=== PATIENT | female | born 1965 | race Caucasian/White ===

== ENCOUNTER 2019-06-18 16:19 | Emergency (ER) | payer SELFPAY | END 2019-06-18 18:19 | disposition home or self-care (01) | PROVIDERS: Emergency Provider Family Medicine; Family Provider Registered Nurse; Visit Provider Family Medicine | DX: N30.21 Other chronic cystitis with hematuria (principal); Z88.5 Allergy status to narcotic agent; Z88.7 Allergy status to serum and vaccine; Z88.2 Allergy status to sulfonamides; Z87.891 Personal history of nicotine dependence; E11.9 Type 2 diabetes mellitus without complications; I10 Essential (primary) hypertension; Z87.440 Personal history of urinary (tract) infections; I73.9 Peripheral vascular disease, unspecified; J44.9 Chronic obstructive pulmonary disease, unspecified | CPT/HCPCS: 36415; 80053; 81001; 85025; 87086; 99283 ==

== ENCOUNTER → 2019-06-21 08:09 | Outpatient (BNVA) | payer MEDICARE, MEDICAID, SELFPAY | PROVIDERS: Family Provider Registered Nurse; PCP Registered Nurse; Visit Provider Registered Nurse | DX: F41.9 Anxiety disorder, unspecified (principal); N30.21 Other chronic cystitis with hematuria; Z09 Encounter for follow-up examination after completed treatment for conditions other than malignant neoplasm | CPT/HCPCS: 81003 ==

== ENCOUNTER 2019-06-27 18:07 | Emergency (ER) | payer MEDICARE, MEDICAID, SELFPAY ==
[2019-06-27 17:02] VITALS: BP 137/88; PULSE 88; RESP 16; TEMP 36.9; O2SAT 97; BMI 29.4
--- NOTE | 2019-06-27 17:16 | ED_ITS ---
HPI - General Adult General: Chief complaint: Abdominal Pain Stated complaint: Abd pain, N/V blood stools History of Present Illness: HPI narrative: Patient arrived by EMS for complaints abdominal pain times months days years. Patient says is been worse since Monday. Was seen at [facility]. Was seen at [facility] clinic today. Patient had no complaints of pain this morning at her clinic visit and her labs were okay from [facility]. Patient is known to me for multiple visits over the last few years for plaints of chronic abdominal pain. Patient has appointment Monday with Dr. Heaven REAGAN complaint: abdominal pain Onset (ago): year(s) Associated symptoms: Reports nausea; Deny chest pain, dyspnea, headache(s), rash or vomiting Review of Systems Const: Denies: fever, chills or body aches Eyes: Denies: change in vision or blurry vision ENMT: Denies: throat pain or nasal congestion Card: Denies: chest pain or shortness of breath on exertion Resp: Denies: shortness of breath, productive cough or non-productive cough GI: Reports: abdominal pain, nausea, cramping and blood in stool; Denies: vomiting, vomiting blood, coffee grounds in vomit, painful bowel movements, black tarry stool or mucus in stool Musc: Denies: extremity pain Skin/Breast: Denies: rash Neuro: Denies: headache Psych: Denies: anxiety or depression Wilbur/Lymph: Denies: easy bruising PFSH ED PFSH: Statuses (acute, chronic, etc) shown below reflect problem list status as previously entered and may not be historically accurate Social History Smoking and tobacco status: current every day smoker cigarettes Household members: spouse Housing: House Marital status: Number of children: 3 Current gender identity: Female Physical Exam Const: COMMON NORMALS: no apparent distress, average body habitus and oriented x3 HENMT: COMMON NORMALS: normocephalic HEAD & SCALP: normal to inspection and normocephalic FACE & SINUS: normal facial exam Eye: COMMON NORMALS: conjunctivae normal GENERAL EYE: normal appearance of both eyes CONJUNCTIVA: Yes conjunctivae normal Neck/C-Spine: COMMON NORMALS: no JVD Chest: COMMONS NORMALS: inspection of chest normal Resp: COMMON NORMALS: normal respiratory effort and clear to auscultation bilaterally AUSCULTATION: clear to auscultation bilaterally Cardio: COMMON NORMALS: no JVD, regular rate and regular rhythm RATE: regular rate RHYTHM: regular rhythm GI: COMMON NORMALS: normal to inspection, nondistended, normoactive bowel sounds Extremity: COMMON NORMALS: normal to inspection and full ROM Neuro: COMMON NORMALS: oriented x3 Course Vital Signs: Vital signs: Vital Signs Temperature 98.5 F 06/27/19 17:02 Pulse Rate 88 06/27/19 17:02 Respiratory Rate 16 06/27/19 17:02 Blood Pressure 137/88 06/27/19 17:02 Pulse Oximetry 97 06/27/19 17:02 Discharge Plan Discharge Prescriptions: No Action trazodone 100 mg tablet 200 mg PO ONCE RF: 0 aripiprazole [Abilify] 5 mg tablet 5 mg PO ONCE RF: 0 venlafaxine 50 mg tablet 25 mg PO BID RF: 0 hydroxyzine pamoate [Vistaril] 50 mg capsule 50 mg PO QID PRN (Reason: anxiety) Qty: 120 RF: 3 nystatin 100,000 unit/gram ointment 1 applic TOPICAL BID RF: 0 mupirocin 2 % ointment 1 applic TOPICAL BID RF: 0 fluconazole [Diflucan] 150 mg tablet 150 mg PO ONCE RF: 0 promethazine 25 mg suppository 25 mg IN Q12H PRN (Reason: nausea and vomiting) Qty: 1 RF: 0 sucralfate [Carafate] 1 gram tablet 1 gm PO Q6H RF: 0 albuterol sulfate 2.5 mg /3 mL (0.083 %) solution for nebulization 2.5 mg INHALATION Q8H PRNRF: 0 buspirone 10 mg tablet 10 mg PO TID RF: 0 pantoprazole [Protonix] 40 mg tablet,delayed release (DR/EC) 40 mg PO ONCE RF: 0 Trelegy Ellipta 100-62.5-25 mcg blister with device 1 inh INHALATION Q24H RF: 0 polyethylene glycol 3350 [Miralax] 17 gram/dose powder 17 gm PO ONCE PRN (Reason: constipation) RF: 0 benzonatate 200 mg capsule 200 mg PO TID RF: 0 bisacodyl [Women's Gentle Laxative(bisac)] 5 mg tablet,delayed release (DR/EC) 5 mg PO ONCE RF: 0 Ingrezza 40 mg capsule 40 mg PO ONCE RF: 0 (DME) oxygen-air delivery systems Device See Rx Instructions .ROUTE .MEDSUPPLY Qty: 1 RF: 0 Coding Level of Care Code ED Health Promotion Officer for Basiag Fwd Exam Problem Focused
[2019-06-27] MEDS: promethazine 25 mg/mL SDV 1 mL IM (17:54)
[2019-06-27 18:03] LABS: Basophils # 0.1 10^3/uL (0.0-0.1); Basophils % 0.8 %; Eosinophils # 0.2 10^3/uL (0.0-0.8); Eosinophils % 1.5 %; Hematocrit 40.3 % (37.0-47.0); Hemoglobin 13.3 g/dL (11.5-15.3); Lymphocytes # 2.3 10^3/uL (0.8-4.8); Lymphocytes % 15.9 %; Mean Corpuscular Volume 93.9 fL (81-99); Monocytes # 0.8 10^3/uL (0.2-0.9); Monocytes % 5.8 %; Neutrophils % 75.5 %; Nucleated Red Blood Cells % 0 %; Platelet Count 263 10^3/cmm (130-400); Red Blood Count 4.29 10^6/uL (4.1-5.3); Red Cell Distribution Width 14.6 % (12.1-15.1); White Blood Count 14.6 10^3/uL (4.0-10.0)
[2019-06-27 18:19] LABS: Alanine Aminotransferase 6 U/L (0-33); Albumin Level 3.9 g/dL (3.5-5.2); Alkaline Phosphatase 127 IU/L (35-105); Anion Gap 14.7 (5-19); Aspartate Amino Transferase 8 U/L (0-32); Blood Urea Nitrogen 10 mg/dL (6-20); Calcium 9.3 mg/Dl (8.6-10.0); Carbon Dioxide 22 mmol/L (22-29); Chloride 107 mmol/L (98-107); Globulin 2.5 g/dL (1.3-4.6); Glomerular Filtration Rate 52.4 mL/min (90-130); Glucose 124 mg/dL (74-109); Lipase 34 U/L (13-60); Potassium 3.7 mmol/L (3.5-5.1); Sodium 140 mmol/L (136-145); Total Bilirubin 0.2 mg/dL (0.15-1.2); Total Protein 6.4 g/dL (6.6-8.7)
[2019-06-27 19:48] VITALS: BP 124/62; PULSE 82; RESP 18; O2SAT 98
== END 2019-06-27 19:49 | disposition home or self-care (01) ==
PROVIDERS: Nurse Practitioner Family; Emergency Provider Emergency Medicine; Family Provider Registered Nurse; PCP Registered Nurse
DX: R10.9 Unspecified abdominal pain (principal); F17.210 Nicotine dependence, cigarettes, uncomplicated
CPT/HCPCS: 36415; 80053; 83690; 85025; 96372; 99281; J2550

== ENCOUNTER 2019-07-09 09:24 | Emergency (ER) | payer MEDICARE, MEDICAID, SELFPAY ==
[2019-07-09 09:35] VITALS: BP 114/79; PULSE 116; RESP 18; TEMP 37.1; O2SAT 96; BMI 29.9
--- NOTE | 2019-07-09 10:21 | PC.NURSE ---
PHYSICAL ASSESSMENT GENERAL / NEURO / PSYCH: Alert. Oriented X 4. HEENT: Mucous membranes are pink. RESPIRATORY: Respiration not labored. Breath sounds within normal limits. GI / : Abdominal tenderness along the lower abdomen above the bladder. ( Bowel sounds within normal limits. Nausea with vomiting daily. Denies urinary problems. SKIN: Skin is warm and dry
--- NOTE | 2019-07-09 10:23 | PC.NURSE ---
Patient ambulated to restroom for urine collection
[2019-07-09 10:49] LABS: Bilirubin Urine Neg (NEGATIVE); Blood Urine 3+ (Negative); Glucose Urine UA Norm (Normal); Ketones Urine Negative (Negative); Nitrate Urine Negative (Negative); Protein Urine Neg (Negative); Urine Appearance Cloudy (CLEAR); Urine Color Yellow (Yellow); pH Urine 5 (5-7)
[2019-07-09 10:49] LABS: Basophils # 0.1 10^3/uL (0.0-0.1); Basophils % 0.4 %; Eosinophils # 0.2 10^3/uL (0.0-0.8); Eosinophils % 0.8 %; Hematocrit 42.2 % (37.0-47.0); Lymphocytes # 1.6 10^3/uL (0.8-4.8); Lymphocytes % 7.9 %; Mean Corpuscular HGB Conc 33.2 g/dL (30.0-36.0); Mean Corpuscular Hemoglobin 31.3 pg (28.0-34.0); Mean Corpuscular Volume 94.2 fL (81-99); Monocytes # 1.3 10^3/uL (0.2-0.9); Monocytes % 6.8 %; Neutrophils # 16.3 10^3/uL (1.8-7.7); Neutrophils % 83.6 %; Nucleated Red Blood Cells % 0 %; Platelet Count 249 10^3/cmm (130-400); Red Blood Count 4.48 10^6/uL (4.1-5.3); Red Cell Distribution Width 14.6 % (12.1-15.1); White Blood Count 19.5 10^3/uL (4.0-10.0)
[2019-07-09 10:50] LABS: Add Urine Microscopic? YES; Leukocyte Esterase Urine Negative (Negative); Urobilinogen Urine 1 mg/dL (Negative)
[2019-07-09] MEDS: sodium chloride 0.9% 1,000 ML 999 ML IV (10:51)
[2019-07-09 10:52] LABS: RBC Urine TOO NUMEROUS TO CNT /hpf (0-2); Squamous Epithelial Cell Urine 0-4 (0-5)
[2019-07-09 10:53] LABS: Add Urine Culture? Yes; Bacteria Urine 2+
[2019-07-09 10:56] VITALS: BP 113/63; PULSE 88; RESP 16; O2SAT 96
[2019-07-09 11:02] LABS: Alanine Aminotransferase 6 U/L (0-33); Albumin Level 3.8 g/dL (3.5-5.2); Alkaline Phosphatase 127 IU/L (35-105); Aspartate Amino Transferase 15 U/L (0-32); Blood Urea Nitrogen 14 mg/dL (6-20); Calcium 9.2 mg/Dl (8.6-10.0); Carbon Dioxide 20 mmol/L (22-29); Chloride 102 mmol/L (98-107); Globulin 3.1 g/dL (1.3-4.6); Glucose 134 mg/dL (74-109); Sodium 134 mmol/L (136-145); Total Bilirubin 0.2 mg/dL (0.15-1.2); Total Protein 6.9 g/dL (6.6-8.7)
--- NOTE | 2019-07-09 11:48 | W.ED.ABDPA2 ---
HPI - Abdominal Pain General: Chief Complaint: Abdominal Pain Stated Complaint: MULITPLE COMPLAINTS Time Seen by Provider: 07/09/19 10:07 Source: patient Mode of arrival: ambulatory Limitations: no limitations History of Present Illness: HPI narrative: Patient is a 53-year-old female who presents to ED today with complaints of hematemesis that she states is only been going on a week but after reviewing patient's history this is fairly chronic for her; patient reports she recently saw Dr. Medley for evaluation; she states she recontacted their office earlier this morning and spoke to a nurse who recommended she come to the emergency department; patient reports she has not had an EGD in years but according to her history Dr. Medley scoped her 5 months ago-findings of gastritis were present; patient also reports some lower abdominal pain-again this is fairly chronic for patient; she has been seen at our facility several times for similar symptoms; she reports she was at [facility] on Monday (we are contacting [facility] to fax medical records but they alerted me that patient has been at their facility 6 times this month already and 12 times last month) MD elicited complaint: abdominal pain Pertinent past history: gastritis Pain Consistency: constant Location: Other (lower abdomen ) Radiation: none Migration to: no migration Relieving factors: eating Associated Symptoms: Reports hematemesis, nausea and vomiting; Denies bloating, chills, coffee ground emesis, constipation, diarrhea, dysuria, excessive flatus, fever(s), fecal incontinence and syncope Review of Systems Const: Denies: fever or chills Card: Denies: chest pain, palpitations, irregular heart rhythm, lightheadedness, syncope or pre-syncope Resp: Denies: shortness of breath, productive cough or wheezing GI: Reports: abdominal pain, nausea, vomiting and vomiting blood; Denies: coffee grounds in vomit, difficulty swallowing, diarrhea, constipation, bloating, excessive passing of gas, fecal incontinence or painful bowel movements : Denies: flank pain, difficulty urinating, painful urination, urinary frequency, urinary urgency, urinary hesitancy or urinary incontinence Skin/Breast: Denies: rash Neuro: Denies: headache PFSH ED PFSH: Statuses (acute, chronic, etc) shown below reflect problem list status as previously entered and may not be historically accurate Medical History (Updated 01/21/20 @ 12:53 by ALBERT Russo) Chronic anxiety (Acute) Chronic cystitis with hematuria (Acute) Vomiting blood (Acute) Surgical History H/O: hysterectomy (Acute) History of appendectomy (Acute) History of breast biopsy (Acute) History of ureter stent (Acute) Hx of cholecystectomy (Acute) Social History Smoking and tobacco status: current every day smoker cigarettes Household members: spouse Housing: House Marital status: Number of children: 3 Current gender identity: Female Physical Exam Const: COMMON NORMALS: no apparent distress, oriented x3, alert and well nourished Resp: COMMON NORMALS: normal respiratory effort and clear to auscultation bilaterally AUSCULTATION: clear to auscultation bilaterally Cardio: COMMON NORMALS: regular rate and regular rhythm RATE: regular rate RHYTHM: regular rhythm GI: COMMON NORMALS: normal to inspection, nondistended, normoactive bowel sounds, soft to palpation, no hepatosplenomegaly and no masses PALPATION: Yes soft, Yes tender (suprapubic) and Yes no hepatosplenomegaly : COMMON NORMALS: Yes no CVA tenderness BLADDER/KIDNEY EXAM: Yes no CVA tenderness Back/Pelvis: COMMON NORMALS: no CVA tenderness and thoracic and lumbar spine normal to inspection Neuro: COMMON NORMALS: oriented x3 SENSORIUM/ORIENTATION: Yes alert Skin: COMMON NORMALS: no rashes or lesions noted GENERAL SKIN EXAM: no rashes or lesions noted Course Vital Signs: Vital signs: Vital Signs Temperature 98.8 F 07/09/19 09:35 Pulse Rate 70 07/09/19 12:57 Respiratory Rate 14 07/09/19 12:57 Blood Pressure 98/68 07/09/19 12:57 Pulse Oximetry 97 07/09/19 12:57 MDM - Abdominal Pain MDM Narrative: Medical decision making narrative: (I reviewed all 6 of pts last visits to [facility]) Patient's labs here revealing leukocytosis without any evidence for infection based on her history and remainder of labs/UA; looking at previous labs patient often has findings of leukocytosis; on her UA hematuria was present but again after reviewing patient's history this is chronic for her; she apparently has been referred to Dr. Fontanez but but states she has never called and made an appointment; there is no evidence for infection on her UA; history suggests previous diagnoses of kidney stones however looking through patient's imaging from 05/2017 until present, I cannot find any imaging that has ever diagnosed a stone; she has been scanned several times; at this time I do not feel any imaging is necessary; hemoglobin today is higher than what is was a few days ago at [facility]; recommend she follow-up with her primary care provider and continue to follow-up with Dr. Medley as directed; she is already taking Carafate and Protonix daily Lab Data: Labs: Lab Results 07/09/19 07/09/19 07/09/19 Range/Units 10:26 10:43 10:43 WBC 19.5 H (4.0-10.0) 10^3/ uL RBC 4.48 (4.1-5.3) 10^6/u L Hgb 14.0 (11.5-15.3) g/dL Hct 42.2 (37.0-47.0) % MCV 94.2 (81-99) fL MCH 31.3 (28.0-34.0) pg MCHC 33.2 (30.0-36.0) g/dL RDW 14.6 (12.1-15.1) % Plt Count 249 (130-400) 10^3/c mm MPV 10.0 (7.4-10.4) fL Neut % (Auto) 83.6 % Lymph % (Auto) 7.9 % [place] % (Auto) 6.8 % Eos % (Auto) 0.8 % Baso % (Auto) 0.4 % Neut # (Auto) 16.3 H (1.8-7.7) 10^3/u L Lymph # (Auto) 1.6 (0.8-4.8) 10^3/u L [place] # (Auto) 1.3 H (0.2-0.9) 10^3/u L Eos # (Auto) 0.2 (0.0-0.8) 10^3/u L Baso # (Auto) 0.1 (0.0-0.1) 10^3/u L Nucleated RBC % (a uto) 0 % Nucleated RBCs # 0.0 /100WBC Sodium 134 L (136-145) mmol/L Potassium 4.0 (3.5-5.1) mmol/L Chloride 102 (98-107) mmol/L Carbon Dioxide 20 L (22-29) mmol/L Anion Gap 16.0 (5-19) BUN 14 (6-20) mg/dL Creatinine 0.9 (0.5-0.9) mg/dL GFR Calculation 66.0 L (90-130) mL/min Glucose 134 H (74-109) mg/dL Calcium 9.2 (8.6-10.0) mg/Dl Total Bilirubin 0.2 (0.15-1.2) mg/dL AST 15 (0-32) U/L ALT 6 (0-33) U/L Alkaline Phosphata se 127 H (35-105) IU/L Total Protein 6.9 (6.6-8.7) g/dL Albumin 3.8 (3.5-5.2) g/dL Globulin 3.1 (1.3-4.6) g/dL Urine Color Yellow (Yellow) Urine Appearance Cloudy (CLEAR) Urine pH 5 (5-7) Ur Specific Gravit y 1.020 (1.005-1.030) Urine Protein Neg (Negative) Urine Glucose (UA) Norm (Normal) Urine Ketones Negative (Negative) Urine Occult Blood 3+ H (Negative) Urine Nitrate Negative (Negative) Urine Bilirubin Neg (NEGATIVE) Urine Urobilinogen 1 H (Negative) mg/dL Ur Leukocyte Stephanie ase Negative (Negative) Urine RBC Too numerous to c nt H (0-2) /hpf Urine WBC 5-10 H (0-5) /hpf Ur Squamous Epith Cells 0-4 H (0-5) Urine Bacteria 2+ H (NONE) Urine Yeast 1+ H Discharge Plan Discharge Patient Disposition: Home, Self-Care Clinical Impression: Chronic abdominal pain Hematemesis Qualifiers: Nausea presence: with nausea Qualified Code(s): K92.0 - Hematemesis Condition: Stable Prescriptions: No Action hydroxyzine pamoate [Vistaril] 50 mg capsule 50 mg PO QID PRN (Reason: anxiety) Qty: 120 RF: 3 nystatin 100,000 unit/gram ointment 1 applic TOPICAL BID RF: 0 mupirocin 2 % ointment 1 applic TOPICAL BID RF: 0 fluconazole [Diflucan] 150 mg tablet 150 mg PO ONCE RF: 0 promethazine 25 mg suppository 25 mg NE Q12H PRN (Reason: nausea and vomiting) Qty: 1 RF: 0 sucralfate [Carafate] 1 gram tablet 1 gm PO Q6H RF: 0 albuterol sulfate 2.5 mg /3 mL (0.083 %) solution for nebulization 2.5 mg INHALATION Q8H PRNRF: 0 buspirone 10 mg tablet 10 mg PO TID RF: 0 pantoprazole [Protonix] 40 mg tablet,delayed release (DR/EC) 40 mg PO ONCE RF: 0 Trelegy Ellipta 100-62.5-25 mcg blister with device 1 inh INHALATION Q24H RF: 0 polyethylene glycol 3350 [Miralax] 17 gram/dose powder 17 gm PO ONCE PRN (Reason: constipation) RF: 0 benzonatate 200 mg capsule 200 mg PO TID RF: 0 bisacodyl [Women's Gentle Laxative(bisac)] 5 mg tablet,delayed release (DR/EC) 5 mg PO ONCE RF: 0 Ingrezza 40 mg capsule 40 mg PO ONCE RF: 0 (DME) oxygen-air delivery systems Device See Rx Instructions .ROUTE .MEDSUPPLY Qty: 1 RF: 0 venlafaxine 50 mg tablet 25 mg PO BID Qty: 30 RF: 0 trazodone 100 mg tablet 200 mg PO ONCE Qty: 30 RF: 0 aripiprazole [Abilify] 5 mg tablet 5 mg PO ONCE Qty: 30 RF: 0 Discharge Orders: Discharge Order (Routine); Ordered 07/09/19 Ordered By: Shayla Jaquez Referrals: Dara Tavera, AMANDEEP [Primary Care Provider] - Discharge Diet: Usual diet Patient Instructions: Abdominal Pain (ED) Activity Restrictions/Additional Instructions: As directed please follow-up with your primary care physician. Follow-up with Dr. Medley as scheduled-refer to his discharge papers on your last visit for instructions. Contact Dr. Fontanez's office for an appointment for the blood in your urine. Discharge Date/Time: 07/09/19 12:58 Coding Level of Care Code ED Boom Cat Operator for Chg Fwd Exam Problem Focused
[2019-07-09 12:57] VITALS: BP 98/68; PULSE 70; RESP 14; O2SAT 97
--- NOTE | 2019-07-10 10:35 | DCPLANNER ---
manager gift had message to schedule a follow up appointment for patient with Dr. Fontanez. manager gift called the office of Dr. Fontanez, spoke with Rakel, gave clinic patients information. manager gift was told that patients information would be printed and given to Shanda for review. Clinic will call patient with appointment information. manager gift will call for appointment information.
--- NOTE | 2019-07-11 13:51 | DCPLANNER ---
Patient has an appointment scheduled for , July 18, 2019 at 12:[address] Fontanez. Clinic will notify patient with appointment information.
--- NOTE | 2019-07-18 14:34 | DCPLANNER ---
Patient did attend appointment scheduled for 07.18.[address] Fontanez.
== END 2019-07-09 12:58 | disposition home or self-care (01) ==
PROVIDERS: Emergency Provider Physician Assistant; Family Provider Registered Nurse; PCP Registered Nurse
DX: G89.29 Other chronic pain (principal); R10.9 Unspecified abdominal pain; K92.0 Hematemesis; Z87.440 Personal history of urinary (tract) infections; F17.210 Nicotine dependence, cigarettes, uncomplicated
CPT/HCPCS: 36415; 80053; 81003; 85025; 87086; 96360; 96365; 99281; J0131; J7030

== ENCOUNTER 2019-07-18 07:54 | Outpatient (CLI) | payer MEDICARE, MEDICAID, SELFPAY ==
--- NOTE | 2019-07-18 08:00 | XR_ITS ---
WS: [id number] KUB, 07/18/2019 Clinical Data: CHRONIC CYSTITIS Comparison: KUB and upright abdomen, 05/09/2019. Findings: No abnormal intraabdominal masses or calcifications are seen. There is no dilatated small bowel or ev idence of obstruction. There are clips in the right upper quadrant from a cholecystectomy. There is a large amount of fecal material in the colon. There is a dextroscoliosis. The patient has had left inguinal surgery. XR/XR KUB [id number] Impression: Large amount of fecal material throughout the colon.
== END 2019-07-18 07:55 | disposition home or self-care (01) ==
LOC: RAD 08:00
PROVIDERS: Family Provider Registered Nurse; PCP Registered Nurse; Visit Provider Urology
DX: N30.20 Other chronic cystitis without hematuria (principal)
CPT/HCPCS: 74018; 81001

== ENCOUNTER 2019-07-29 13:21 | Day surgery (SDC) | payer MEDICARE, MEDICAID, SELFPAY ==
[2019-07-26 16:53] VITALS: BMI 29.9
[2019-07-29] VITALS (7 sets, daily range): BP systolic 125–136; BP diastolic 71–88; PULSE 71–89; RESP 12–18; TEMP 36.6–37.4; O2SAT 96–100
[2019-07-29] MEDS: sodium chloride 0.9% 1,000 ML 30 ML IV (13:52)
--- NOTE | 2019-07-29 14:21 | ANES.PREANE2 ---
Pre-Anesthetic Assessment Pre-Anesthetic Assessment: Height/Weight: Height 1.65 m Weight 81.647 kg Temp Pulse Resp BP Pulse Ox 97.8 F 89 18 126/77 97 07/29/19 13:43 07/29/19 13:43 07/29/19 13:43 07/29/19 13:43 07/29/19 13:43 Preop Diagnosis: Foreign body bladder, bladder calcification Proposed Procedure: Operation Date: 07/29/19 15:50 Proposed Procedures p Cystolitholapaxy 78487 N21.0 T19.1XXA(Not Applicable) - Taiwo Fontanez MD s Attempted Foreign Body Removal(Not Applicable) - Taiwo Fontanez MD Last intake: Intake Last Liquid Date 07/29/19 Last Liquid Time 10:00 Last Solid Date 07/28/19 Last Solid Time 23:00 Social: Social History: Tobacco Packs per day: 1/2 Pack years: 25 Exam: Pre-Anes Outpt Exam: alert, oriented x 3, clear to auscultation bilaterally and regular rate & rhythm Airway: Submandibular: WNL Cervical ROM: WNL MP: 1 Pulmonary: Pulmonary: COPD Comments: Home O2 2lpm, off x 2 months : Comments: neurognic bladder with mesh GI: GI: PUD Comments: protonix + carafate Musc/skel: Musc/skel: Lower Back Pain Neuropsych: Neuropsych: Depression Comments: right radiculopathy Anesthetic Plan: ASA status: 3 Anesthesia: General Meds/Allergies Current Medications: Current Medications Generic Name Dose Route Start Last Admin Trade Name Freq PRN Reason Stop Dose Admin Sodium Chloride 1,000 mls @ 30 ml s/hr 07/29/19 13:30 07/29/19 13:52 Sodium Chloride 0.9% IV 07/30/19 13:29 30 mls/hr .Q24H VALENTINO Administration PFSH Anesthesia PFSH: Medical History (Updated 07/19/19 @ 14:13 by Taiwo Fontanez MD) Bladder stone (Acute) Chronic anxiety (Acute) Chronic cystitis with hematuria (Acute) Foreign body in bladder (Acute) Vomiting blood (Acute) Surgical History (Updated 07/18/19 @ 08:38 by Nicole Oliver RN) H/O: hysterectomy (Acute) History of appendectomy (Acute) History of breast biopsy (Acute) History of ureter stent (Acute) Hx of cholecystectomy (Acute) Social History Smoking and tobacco status: current every day smoker cigarettes Household members: spouse Housing: House Marital status: Number of children: 3 Current gender identity: Female Data Anesthesia Cardiac Studies: No Data to Display
--- NOTE | 2019-07-29 15:48 | PM.HPUD ---
H&P update H&P Update: DATE OF SURGERY/PROCEDURE: 07/29/19 DATE H&P PERFORMED: 07/18/19 H&P UPDATE INFORMATION: No changes to prior documentation PREOP DIAGNOSIS: Foreign body bladder, bladder calcification PRIMARY INDICATION FOR PROCEDURE: Calcification formed on foreign body in the bladder PLANNED PROCEDURE: Operation Date: 07/29/19 15:50 Proposed Procedures p Cystolitholapaxy 39051 N21.0 T19.1XXA(Not Applicable) - Taiwo Fontanez MD s Attempted Foreign Body Removal(Not Applicable) - Taiwo Fontanez MD Full H&P Medications/Allergies: Current Medications: Current Medications Generic Name Dose Route Start Last Admin Trade Name Freq PRN Reason Stop Dose Admin Sodium Chloride 1,000 mls @ 30 ml s/hr 07/29/19 13:30 07/29/19 13:52 Sodium Chloride 0.9% IV 07/30/19 13:29 30 mls/hr .Q24H VALENTINO Administration Perinent History: Medical/Surgical History: Medical History (Updated 07/19/19 @ 14:13 by Taiwo Fontanez MD) Bladder stone Chronic anxiety Chronic cystitis with hematuria Foreign body in bladder Vomiting blood Family History: Family History (Updated 06/13/19 @ 11:30 by Ruth Nunes LPN) Other Asthma Cancer Diabetes Heart disease Social History: Social History Smoking and tobacco status: current every day smoker cigarettes Household members: spouse Housing: House Marital status: Number of children: 3 Current gender identity: Female
--- NOTE | 2019-07-29 15:49 | PM.OP ---
Operative Report Date of procedure: July 29, 2019 Pre-op Diagnosis: Foreign body bladder, bladder calcification Post-op diagnosis: same Procedure Done: Cystolitholapaxy, 2 dystrophic calcification Implants: None Specimens removed/disposition: Bladder stone fragments Surgeon: Huseyin Anesthesia: General Estimated blood loss: <10 cc Urine output: not measured Complications: none Brief History: Latesha is a 53-year-old white female with a complex urologic history involving a previous laparoscopic bladder repair with mesh and spiral tacks. Multiple tacks perforate into the bladder and over the years she has had multiple surgeries directed attack excision, mesh excision, removal of bladder stones attached to eroded tacks and mesh. Recently was complaining of some increased LUTS and for that reason the scope was performed that demonstrated a dystrophic calcification on the anterior bladder wall with possible underlying tach or mesh. Admitted now for removal of the calcification. Procedure: After routine preoperative evaluation examination and obtaining of informed consent she was taken to the operating suite on 07/29/2019 where general anesthesia was administered without difficulty after appropriate timeout was performed, SCDs confirmed to be functioning, preoperative antibiotics administered, beta-valarie protocol confirmed. Prepped and draped in usual sterile fashion in dorsolithotomy position pain careful attention to avoiding pressure points. 21 Tajik cystoscope with 30 degree lens was introduced into the urethral meatus and advanced into the bladder under videoscopy. Bladder was systematically examined. The previously defined calcifications on the anterior bladder wall foreign body were seen and they were crushed with grasping forceps and removed. It was clear at this point that this was a small area of erosion of mesh but not tach. There was a little bit of oozing from the site and it was fulgurated with a small Bugbee probe for meticulous hemostasis. A couple of the pieces of the mesh were trimmed with grasping forceps. At the completion minimal mesh could be identified. Bladder was drained procedure completed. Tolerated procedure well without complications and was awakened in the operating room and returned to recovery in stable condition. PLANS: Return to clinic in 1 year for cystoscopy.
[2019-07-29] MEDS: levofloxacin-dextrose 5 % 500 MG/100 ML PREMIX 100 MG IV (15:56)
== END 2019-07-29 17:20 | disposition home or self-care (01) ==
PROVIDERS: Family Provider Registered Nurse; PCP Registered Nurse; Visit Provider Urology
PROC: 0TCB8ZZ Extirpation of Matter from Bladder, Via Natural or Artificial Opening Endoscopic (ICD-10-PCS; CPT 52317; principal; 2019-07-29 15:10)
DX: T19.1XXA Foreign body in bladder, initial encounter (principal); N21.0 Calculus in bladder; Z82.49 Family history of ischemic heart disease and other diseases of the circulatory system; Z83.3 Family history of diabetes mellitus; F17.210 Nicotine dependence, cigarettes, uncomplicated; Z99.81 Dependence on supplemental oxygen
CPT/HCPCS: 52317; 12345; 96365; J1100; J1956; J2001; J2405; J2704; J2765; J3010; J7030

== ENCOUNTER 2019-08-03 20:45 | Observation (INO) | payer MEDICARE, MEDICAID, SELFPAY ==
[2019-08-03 20:53] VITALS: BP 113/66; PULSE 74; RESP 16; TEMP 36.8; O2SAT 95; BMI 30.6
--- NOTE | 2019-08-03 21:40 | ED_ITS ---
Entered by Ivette Slaughter, acting as scribe for Elva Weston MD, [facility] Aug 03, 2019 20:45 Documented by User: Elva Weston MD, [facility] 08/04/19 11:33 HPI - Chest Pain General: Chief Complaint: Chest Pain Stated Complaint: chest pain Time Seen by Provider: 08/03/19 21:40 Source: patient, EMS and RN notes reviewed Mode of arrival: EMS Limitations: no limitations History of Present Illness: HPI narrative: 53 yo female presents to ED with complaints of chest pain. She said the pain has been severe for 2 hours (having begun at 1900), going up both sides of neck, and is worsening. She said an ultrasound was performed on her heart in [place] and it shows that she has thickening around her arteries. She said it feels like someone is just squeezing up there (indicating her throat). She took 4 baby aspirin prior to the ambulance arriving at her home. She said she is lightheaded. MD complaint: chest pain Pertinent past history: other (anxiety, GERD) Onset (ago): hour(s) (2.5 (1900)) Timing of current episode: constant and still present Prior episodes: Yes Onset: during rest Pain location: substernal Pain radiation: neck Severity: severe Quality: tightness Relieving factors: nothing Exacerbating factors: nothing Context: recent surgery (kidney stones) and other (anxiety) Associated symptoms: Deny abdominal pain, dyspnea, fever(s), nausea, palpitations or vomiting Treatment prior to arrival: aspirin (4 baby aspirin) Risk Factors: Coronary artery disease risk factors: none Thoracic aortic dissection risk factors: none Pulmonary embolism risk factors: recent surgery (kidney stones) Related Data: On Oral Contraceptives: No Review of Systems General: Reports: 10 or more systems reviewed and unremarkable except in HPI and below Const: Denies: fever, chills or body aches Eyes: Reports: blind spots; Denies: change in vision or blurry vision ENMT: Denies: throat pain, enlarged tonsils, painful swallowing, hoarseness, mouth pain or swelling of lips/tongue Card: Reports: chest pain; Denies: palpitations, irregular heart rhythm, edema or swelling of feet/ankles Resp: Denies: shortness of breath, productive cough or non-productive cough GI: Denies: abdominal pain, nausea or vomiting : Denies: flank pain, difficulty urinating, painful urination, urinary frequency, urinary urgency or urinary hesitancy Musc: Denies: neck pain, back pain or extremity swelling Skin/Breast: Denies: rash, itching or redness Neuro: Denies: headache, numbness in extremities or weakness in extremities Endo: Denies: excessive urination, excessive thirst or tired all the time PFSH ED PFSH: Social History Smoking and tobacco status: current every day smoker cigarettes Household members: spouse Housing: House Marital status: Number of children: 3 Current gender identity: Female Physical Exam Const: COMMON NORMALS: no apparent distress, average body habitus, oriented x3, no limitations, healthy appearing, alert and well nourished HENMT: COMMON NORMALS: normocephalic, head/scalp atraumatic and moist oral mucous membranes HEAD & SCALP: normocephalic and atraumatic Eye: COMMON NORMALS: PERRL, EOMs intact bilaterally, conjunctivae normal and no scleral icterus CONJUNCTIVA: Yes conjunctivae normal PUPIL: Yes PERRL Neck/C-Spine: COMMON NORMALS: full ROM, supple, no meningeal signs, no JVD and no carotid bruits Chest: COMMONS NORMALS: inspection of chest normal and palpation of chest normal Resp: COMMON NORMALS: normal respiratory effort, no retractions, no use of accessory muscles, clear to auscultation bilaterally and percussion normal AUSCULTATION: clear to auscultation bilaterally PERCUSSION: percussion normal Cardio: COMMON NORMALS: no JVD, regular rate, regular rhythm, S1 normal heart sound, S2 normal heart sound, no gallops, no clicks, no murmurs, no rub and p eripheral pulses 2+ throughout RATE: regular rate RHYTHM: regular rhythm HEART SOUNDS: S1 normal and S2 normal PERIPHERAL PULSES: pulses 2+ throughout GI: COMMON NORMALS: normal to inspection, nondistended, normoactive bowel sounds, soft to palpation, non-tender, no hepatosplenomegaly, no masses and no bruits PALPATION: Yes soft and Yes no hepatosplenomegaly : COMMON NORMALS: Yes no CVA tenderness BLADDER/KIDNEY EXAM: Yes no CVA tenderness Back/Pelvis: COMMON NORMALS: no CVA tenderness Extremity: COMMON NORMALS: normal to inspection, full ROM, normal capillary refill, no calf tenderness and no pedal edema Neuro: COMMON NORMALS: oriented x3 SENSORIUM/ORIENTATION: Yes alert MENINGEAL SIGNS: Yes no meningeal signs Skin: COMMON NORMALS: no rashes or lesions noted, no wounds, skin turgor normal, no jaundice, no petechiae and no mottling GENERAL SKIN EXAM: no rashes or lesions noted and turgor normal Course Vital Signs: Vital signs: Vital Signs Temperature 97.8 F 08/04/19 08:00 Pulse Rate 75 08/04/19 11:08 Respiratory Rate 18 08/04/19 10:59 Blood Pressure 99/60 08/04/19 08:00 Pulse Oximetry 95 08/04/19 10:59 MDM - Chest Pain Lab Data: Labs: Lab Results 08/03/19 08/03/19 08/03/19 Range/Units 22:06 22:06 22:06 WBC 27.4 H (4.0-10.0) 10^3/ uL RBC 4.30 (4.1-5.3) 10^6/u L Hgb 12.5 (11.5-15.3) g/dL Hct 38.1 (37.0-47.0) % MCV 88.6 (81-99) fL MCH 29.1 (28.0-34.0) pg MCHC 32.8 (30.0-36.0) g/dL RDW 15.6 H (12.1-15.1) % Plt Count 319 (130-400) 10^3/c mm MPV 9.7 (7.4-10.4) fL Neut % (Auto) 80.4 % Lymph % (Auto) 11.4 % [place] % (Auto) 6.1 % Eos % (Auto) 0.8 % Baso % (Auto) 0.5 % Neut # (Auto) 22.0 H (1.8-7.7) 10^3/u L Lymph # (Auto) 3.1 (0.8-4.8) 10^3/u L [place] # (Auto) 1.7 H (0.2-0.9) 10^3/u L Eos # (Auto) 0.2 (0.0-0.8) 10^3/u L Baso # (Auto) 0.1 (0.0-0.1) 10^3/u L Nucleated RBC % (a uto) 0 % Nucleated RBCs # 0.0 /100WBC ESR (0-15) mm/hr D-Dimer (0-0.59) ug/mIFE U Sodium 140 (136-145) mmol/L Potassium 3.9 (3.5-5.1) mmol/L Chloride 104 (98-107) mmol/L Carbon Dioxide 24 (22-29) mmol/L Anion Gap 15.9 (5-19) BUN 19 (6-20) mg/dL Creatinine 1.1 H (0.5-0.9) mg/dL GFR Calculation 52.4 L (90-130) mL/min Glucose 104 (65-115) mg/dL Lactic Acid (0.5-2.2) mmol/L Calcium 9.2 (8.5-10.5) mg/dL Total Bilirubin 0.2 (0.15-1.2) mg/dL AST 11 (0-32) U/L ALT 8 (0-33) U/L Alkaline Phosphata se 110 H (35-105) IU/L Troponin I 6 Hour (0-10) ng/mL Troponin I Hi Sens Del (0-12) ng/L Troponin T Baselin e 9 (0-10) ng/mL Troponin T 120 Min [place] (0-10) ng/mL Delta Troponin T (0-10) ABS# C-Reactive Protein (0.0-4.9) mg/L NT-Pro-B Natriuret Pep 92 (0-125) pg/mL Total Protein 6.1 L (6.6-8.7) g/dL Albumin 3.7 (3.5-5.2) g/dL Globulin 2.4 (1.3-4.6) g/dL Procalcitonin (0-0.5) ng/mL TSH (0.27-4.20) uIU/ mL Urine Color (Yellow) Urine Appearance (CLEAR) Urine pH (5-7) Ur Specific Gravit y (1.005-1.030) Urine Protein (Negative) Urine Glucose (UA) (Normal) Urine Ketones (Negative) Urine Occult Blood (Negative) Urine Nitrate (Negative) Urine Bilirubin (NEGATIVE) Prot Sulfosalicyli c Acd Urine Urobilinogen (Negative) mg/dL Ur Leukocyte Stephanie ase (Negative) Urine RBC (0-2) /hpf Urine WBC (0-5) /hpf Ur Squamous Epith Cells (0-5) Amorphous Sediment Urine Bacteria (NONE) Urine Mucus 08/03/19 08/03/19 08/03/19 Range/Units 22:06 22:06 23:54 WBC (4.0-10.0) 10^3/ uL RBC (4.1-5.3) 10^6/u L Hgb (11.5-15.3) g/dL Hct (37.0-47.0) % MCV (81-99) fL MCH (28.0-34.0) pg MCHC (30.0-36.0) g/dL RDW (12.1-15.1) % Plt Count (130-400) 10^3/c mm MPV (7.4-10.4) fL Neut % (Auto) % Lymph % (Auto) % [place] % (Auto) % Eos % (Auto) % Baso % (Auto) % Neut # (Auto) (1.8-7.7) 10^3/u L Lymph # (Auto) (0.8-4.8) 10^3/u L [place] # (Auto) (0.2-0.9) 10^3/u L Eos # (Auto) (0.0-0.8) 10^3/u L Baso # (Auto) (0.0-0.1) 10^3/u L Nucleated RBC % (a uto) % Nucleated RBCs # /100WBC ESR 15 (0-15) mm/hr D-Dimer 0.35 (0-0.59) ug/mIFE U Sodium (136-145) mmol/L Potassium (3.5-5.1) mmol/L Chloride (98-107) mmol/L Carbon Dioxide (22-29) mmol/L Anion Gap (5-19) BUN (6-20) mg/dL Creatinine (0.5-0.9) mg/dL GFR Calculation (90-130) mL/min Glucose (65-115) mg/dL Lactic Acid (0.5-2.2) mmol/L Calcium (8.5-10.5) mg/dL Total Bilirubin (0.15-1.2) mg/dL AST (0-32) U/L ALT (0-33) U/L Alkaline Phosphata se (35-105) IU/L Troponin I 6 Hour (0-10) ng/mL Troponin I Hi Sens Del (0-12) ng/L Troponin T Baselin e (0-10) ng/mL Troponin T 120 Min [place] 8.13 (0-10) ng/mL Delta Troponin T -0.87 L (0-10) ABS# C-Reactive Protein (0.0-4.9) mg/L NT-Pro-B Natriuret Pep (0-125) pg/mL Total Protein (6.6-8.7) g/dL Albumin (3.5-5.2) g/dL Globulin (1.3-4.6) g/dL Procalcitonin (0-0.5) ng/mL TSH (0.27-4.20) uIU/ mL Urine Color (Yellow) Urine Appearance (CLEAR) Urine pH (5-7) Ur Specific Gravit y (1.005-1.030) Urine Protein (Negative) Urine Glucose (UA) (Normal) Urine Ketones (Negative) Urine Occult Blood (Negative) Urine Nitrate (Negative) Urine Bilirubin (NEGATIVE) Prot Sulfosalicyli c Acd Urine Urobilinogen (Negative) mg/dL Ur Leukocyte Stephanie ase (Negative) Urine RBC (0-2) /hpf Urine WBC (0-5) /hpf Ur Squamous Epith Cells (0-5) Amorphous Sediment Urine Bacteria (NONE) Urine Mucus 08/04/19 08/04/19 08/04/19 Range/Units 00:15 02:46 04:11 WBC (4.0-10.0) 10^3/ uL RBC (4.1-5.3) 10^6/u L Hgb (11.5-15.3) g/dL Hct (37.0-47.0) % MCV (81-99) fL MCH (28.0-34.0) pg MCHC (30.0-36.0) g/dL RDW (12.1-15.1) % Plt Count (130-400) 10^3/c mm MPV (7.4-10.4) fL Neut % (Auto) % Lymph % (Auto) % [place] % (Auto) % Eos % (Auto) % Baso % (Auto) % Neut # (Auto) (1.8-7.7) 10^3/u L Lymph # (Auto) (0.8-4.8) 10^3/u L [place] # (Auto) (0.2-0.9) 10^3/u L Eos # (Auto) (0.0-0.8) 10^3/u L Baso # (Auto) (0.0-0.1) 10^3/u L Nucleated RBC % (a uto) % Nucleated RBCs # /100WBC ESR (0-15) mm/hr D-Dimer (0-0.59) ug/mIFE U Sodium (136-145) mmol/L Potassium (3.5-5.1) mmol/L Chloride (98-107) mmol/L Carbon Dioxide (22-29) mmol/L Anion Gap (5-19) BUN (6-20) mg/dL Creatinine (0.5-0.9) mg/dL GFR Calculation (90-130) mL/min Glucose (65-115) mg/dL Lactic Acid 1.3 (0.5-2.2) mmol/L Calcium (8.5-10.5) mg/dL Total Bilirubin (0.15-1.2) mg/dL AST (0-32) U/L ALT (0-33) U/L Alkaline Phosphata se (35-105) IU/L Troponin I 6 Hour 6.00 (0-10) ng/mL Troponin I Hi Sens Del -3.00 L (0-12) ng/L Troponin T Baselin e (0-10) ng/mL Troponin T 120 Min [place] (0-10) ng/mL Delta Troponin T (0-10) ABS# C-Reactive Protein (0.0-4.9) mg/L NT-Pro-B Natriuret Pep (0-125) pg/mL Total Protein (6.6-8.7) g/dL Albumin (3.5-5.2) g/dL Globulin (1.3-4.6) g/dL Procalcitonin (0-0.5) ng/mL TSH (0.27-4.20) uIU/ mL Urine Color Yellow (Yellow) Urine Appearance Hazy A (CLEAR) Urine pH 8 H (5-7) Ur Specific Gravit y 1.005 (1.005-1.030) Urine Protein Neg (Negative) Urine Glucose (UA) Norm (Normal) Urine Ketones Negative (Negative) Urine Occult Blood Neg (Negative) Urine Nitrate Negative (Negative) Urine Bilirubin Neg (NEGATIVE) Prot Sulfosalicyli c Acd Negative Urine Urobilinogen Norm (Negative) mg/dL Ur Leukocyte Stephanie ase Negative (Negative) Urine RBC Rare (0-2) /hpf Urine WBC 0-4 H (0-5) /hpf Ur Squamous Epith Cells 0-4 H (0-5) Amorphous Sediment 2+ Urine Bacteria Trace (NONE) Urine Mucus Trace 08/04/19 Range/Units 04:11 WBC (4.0-10.0) 10^3/ uL RBC (4.1-5.3) 10^6/u L Hgb (11.5-15.3) g/dL Hct (37.0-47.0) % MCV (81-99) fL MCH (28.0-34.0) pg MCHC (30.0-36.0) g/dL RDW (12.1-15.1) % Plt Count (130-400) 10^3/c mm MPV (7.4-10.4) fL Neut % (Auto) % Lymph % (Auto) % [place] % (Auto) % Eos % (Auto) % Baso % (Auto) % Neut # (Auto) (1.8-7.7) 10^3/u L Lymph # (Auto) (0.8-4.8) 10^3/u L [place] # (Auto) (0.2-0.9) 10^3/u L Eos # (Auto) (0.0-0.8) 10^3/u L Baso # (Auto) (0.0-0.1) 10^3/u L Nucleated RBC % (a uto) % Nucleated RBCs # /100WBC ESR (0-15) mm/hr D-Dimer (0-0.59) ug/mIFE U Sodium (136-145) mmol/L Potassium (3.5-5.1) mmol/L Chloride (98-107) mmol/L Carbon Dioxide (22-29) mmol/L Anion Gap (5-19) BUN (6-20) mg/dL Creatinine (0.5-0.9) mg/dL GFR Calculation (90-130) mL/min Glucose (65-115) mg/dL Lactic Acid (0.5-2.2) mmol/L Calcium (8.5-10.5) mg/dL Total Bilirubin (0.15-1.2) mg/dL AST (0-32) U/L ALT (0-33) U/L Alkaline Phosphata se (35-105) IU/L Troponin I 6 Hour (0-10) ng/mL Troponin I Hi Sens Del (0-12) ng/L Troponin T Baselin e (0-10) ng/mL Troponin T 120 Min [place] (0-10) ng/mL Delta Troponin T (0-10) ABS# C-Reactive Protein 26.8 H (0.0-4.9) mg/L NT-Pro-B Natriuret Pep 92 (0-125) pg/mL Total Protein (6.6-8.7) g/dL Albumin (3.5-5.2) g/dL Globulin (1.3-4.6) g/dL Procalcitonin 0.13 (0-0.5) ng/mL TSH 2.68 (0.27-4.20) uIU/ mL Urine Color (Yellow) Urine Appearance (CLEAR) Urine pH (5-7) Ur Specific Gravit y (1.005-1.030) Urine Protein (Negative) Urine Glucose (UA) (Normal) Urine Ketones (Negative) Urine Occult Blood (Negative) Urine Nitrate (Negative) Urine Bilirubin (NEGATIVE) Prot Sulfosalicyli c Acd Urine Urobilinogen (Negative) mg/dL Ur Leukocyte Stephanie ase (Negative) Urine RBC (0-2) /hpf Urine WBC (0-5) /hpf Ur Squamous Epith Cells (0-5) Amorphous Sediment Urine Bacteria (NONE) Urine Mucus EKG Data^: EKG 1: Attestation: I personally reviewed and interpreted this EKG as follows: EKG interpretation date: 08/03/19 EKG interpretation time: 21:27 Prior EKG tracings: not available for review Interpretation: Normal sinus rhythm. Heart rate [address] changes. Normal axis. Discharge Plan Discharge Patient Disposition: Admitted As Inpatient Admit Provider: Rubén Brush Clinical Impression: Pneumonia Qualifiers: Pneumonia type: due to unspecified organism Laterality: bilateral Lung locatio n: unspecified part of lung Qualified Code(s): J18.9 - Pneumonia, unspecified organism Sepsis Qualifiers: Sepsis type: sepsis due to unspecified organism Sepsis acute organ dysfunction status: unspecified Qualified Code(s): A41.9 - Sepsis, unspecified organism Condition: Stable [facility] [Outside[facility] Discharge Date/Time: 08/04/19 05:27 Sign Out Sign Out Data: Patient Sign Out occurred on 08/04/19 at 00:01. Patient's care was discussed, and care was transferred from to Ann Morgan. Coding Level of Care Code ED Technical Fellow for Chg Fwd Exam Comprehensive Documented by User: Ann Morgan 08/04/19 05:24 HPI - Chest Pain General: Chief Complaint: Chest Pain Stated Complaint: chest pain Time Seen by Provider: 08/03/19 21:40 [facility] ED PFSH: Social History Smoking and tobacco status: current every day smoker cigarettes Household members: spouse Housing: House Marital status: Number of children: 3 Current gender identity: Female Course Vital Signs: Vital signs: Vital Signs Temperature 97.8 F 08/04/19 08:00 Pulse Rate 75 08/04/19 11:08 Respiratory Rate 18 08/04/19 10:59 Blood Pressure 99/60 08/04/19 08:00 Pulse Oximetry 95 08/04/19 10:59 MDM - Chest Pain MDM Narrative: Medical decision making narrative: Case reviewed with Dr. Brush, he agrees to come admit the patient for sepsis with pneumonia. Lab Data: Attestation: I reviewed the patient's lab results. Labs: Lab Results 08/03/19 08/03/19 08/03/19 Range/Units 22:06 22:06 22:06 WBC 27.4 H (4.0-10.0) 10^3/ uL RBC 4.30 (4.1-5.3) 10^6/u L Hgb 12.5 (11.5-15.3) g/dL Hct 38.1 (37.0-47.0) % MCV 88.6 (81-99) fL MCH 29.1 (28.0-34.0) pg MCHC 32.8 (30.0-36.0) g/dL RDW 15.6 H (12.1-15.1) % Plt Count 319 (130-400) 10^3/c mm MPV 9.7 (7.4-10.4) fL Neut % (Auto) 80.4 % Lymph % (Auto) 11.4 % [place] % (Auto) 6.1 % Eos % (Auto) 0.8 % Baso % (Auto) 0.5 % Neut # (Auto) 22.0 H (1.8-7.7) 10^3/u L Lymph # (Auto) 3.1 (0.8-4.8) 10^3/u L [place] # (Auto) 1.7 H (0.2-0.9) 10^3/u L Eos # (Auto) 0.2 (0.0-0.8) 10^3/u L Baso # (Auto) 0.1 (0.0-0.1) 10^3/u L Nucleated RBC % (a uto) 0 % Nucleated RBCs # 0.0 /100WBC ESR (0-15) mm/hr D-Dimer (0-0.59) ug/mIFE U Sodium 140 (136-145) mmol/L Potassium 3.9 (3.5-5.1) mmol/L Chloride 104 (98-107) mmol/L Carbon Dioxide 24 (22-29) mmol/L Anion Gap 15.9 (5-19) BUN 19 (6-20) mg/dL Creatinine 1.1 H (0.5-0.9) mg/dL GFR Calculation 52.4 L (90-130) mL/min Glucose 104 (65-115) mg/dL Lactic Acid (0.5-2.2) mmol/L Calcium 9.2 (8.5-10.5) mg/dL Total Bilirubin 0.2 (0.15-1.2) mg/dL AST 11 (0-32) U/L ALT 8 (0-33) U/L Alkaline Phosphata se 110 H (35-105) IU/L Troponin I 6 Hour (0-10) ng/mL Troponin I Hi Sens Del (0-12) ng/L Troponin T Baselin e 9 (0-10) ng/mL Troponin T 120 Min [place] (0-10) ng/mL Delta Troponin T (0-10) ABS# C-Reactive Protein (0.0-4.9) mg/L NT-Pro-B Natriuret Pep 92 (0-125) pg/mL Total Protein 6.1 L (6.6-8.7) g/dL Albumin 3.7 (3.5-5.2) g/dL Globulin 2.4 (1.3-4.6) g/dL Procalcitonin (0-0.5) ng/mL TSH (0.27-4.20) uIU/ mL Urine Color (Yellow) Urine Appearance (CLEAR) Urine pH (5-7) Ur Specific Gravit y (1.005-1.030) Urine Protein (Negative) Urine Glucose (UA) (Normal) Urine Ketones (Negative) Urine Occult Blood (Negative) Urine Nitrate (Negative) Urine Bilirubin (NEGATIVE) Prot Sulfosalicyli c Acd Urine Urobilinogen (Negative) mg/dL Ur Leukocyte Stephanie ase (Negative) Urine RBC (0-2) /hpf Urine WBC (0-5) /hpf Ur Squamous Epith Cells (0-5) Amorphous Sediment Urine Bacteria (NONE) Urine Mucus 08/03/19 08/03/19 08/03/19 Range/Units 22:06 22:06 23:54 WBC (4.0-10.0) 10^3/ uL RBC (4.1-5.3) 10^6/u L Hgb (11.5-15.3) g/dL Hct (37.0-47.0) % MCV (81-99) fL MCH (28.0-34.0) pg MCHC (30.0-36.0) g/dL RDW (12.1-15.1) % Plt Count (130-400) 10^3/c mm MPV (7.4-10.4) fL Neut % (Auto) % Lymph % (Auto) % [place] % (Auto) % Eos % (Auto) % Baso % (Auto) % Neut # (Auto) (1.8-7.7) 10^3/u L Lymph # (Auto) (0.8-4.8) 10^3/u L [place] # (Auto) (0.2-0.9) 10^3/u L Eos # (Auto) (0.0-0.8) 10^3/u L Baso # (Auto) (0.0-0.1) 10^3/u L Nucleated RBC % (a uto) % Nucleated RBCs # /100WBC ESR 15 (0-15) mm/hr D-Dimer 0.35 (0-0.59) ug/mIFE U Sodium (136-145) mmol/L Potassium (3.5-5.1) mmol/L Chloride (98-107) mmol/L Carbon Dioxide (22-29) mmol/L Anion Gap (5-19) BUN (6-20) mg/dL Creatinine (0.5-0.9) mg/dL GFR Calculation (90-130) mL/min Glucose (65-115) mg/dL Lactic Acid (0.5-2.2) mmol/L Calcium (8.5-10.5) mg/dL Total Bilirubin (0.15-1.2) mg/dL AST (0-32) U/L ALT (0-33) U/L Alkaline Phosphata se (35-105) IU/L Troponin I 6 Hour (0-10) ng/mL Troponin I Hi Sens Del (0-12) ng/L Troponin T Baselin e (0-10) ng/mL Troponin T 120 Min [place] 8.13 (0-10) ng/mL Delta Troponin T -0.87 L (0-10) ABS# C-Reactive Protein (0.0-4.9) mg/L NT-Pro-B Natriuret Pep (0-125) pg/mL Total Protein (6.6-8.7) g/dL Albumin (3.5-5.2) g/dL Globulin (1.3-4.6) g/dL Procalcitonin (0-0.5) ng/mL TSH (0.27-4.20) uIU/ mL Urine Color (Yellow) Urine Appearance (CLEAR) Urine pH (5-7) Ur Specific Gravit y (1.005-1.030) Urine Protein (Negative) Urine Glucose (UA) (Normal) Urine Ketones (Negative) Urine Occult Blood (Negative) Urine Nitrate (Negative) Urine Bilirubin (NEGATIVE) Prot Sulfosalicyli c Acd Urine Urobilinogen (Negative) mg/dL Ur Leukocyte Stephanie ase (Negative) Urine RBC (0-2) /hpf Urine WBC (0-5) /hpf Ur Squamous Epith Cells (0-5) Amorphous Sediment Urine Bacteria (NONE) Urine Mucus 08/04/19 08/04/19 08/04/19 Range/Units 00:15 02:46 04:11 WBC (4.0-10.0) 10^3/ uL RBC (4.1-5.3) 10^6/u L Hgb (11.5-15.3) g/dL Hct (37.0-47.0) % MCV (81-99) fL MCH (28.0-34.0) pg MCHC (30.0-36.0) g/dL RDW (12.1-15.1) % Plt Count (130-400) 10^3/c mm MPV (7.4-10.4) fL Neut % (Auto) % Lymph % (Auto) % [place] % (Auto) % Eos % (Auto) % Baso % (Auto) % Neut # (Auto) (1.8-7.7) 10^3/u L Lymph # (Auto) (0.8-4.8) 10^3/u L [place] # (Auto) (0.2-0.9) 10^3/u L Eos # (Auto) (0.0-0.8) 10^3/u L Baso # (Auto) (0.0-0.1) 10^3/u L Nucleated RBC % (a uto) % Nucleated RBCs # /100WBC ESR (0-15) mm/hr D-Dimer (0-0.59) ug/mIFE U Sodium (136-145) mmol/L Potassium (3.5-5.1) mmol/L Chloride (98-107) mmol/L Carbon Dioxide (22-29) mmol/L Anion Gap (5-19) BUN (6-20) mg/dL Creatinine (0.5-0.9) mg/dL GFR Calculation (90-130) mL/min Glucose (65-115) mg/dL Lactic Acid 1.3 (0.5-2.2) mmol/L Calcium (8.5-10.5) mg/dL Total Bilirubin (0.15-1.2) mg/dL AST (0-32) U/L ALT (0-33) U/L Alkaline Phosphata se (35-105) IU/L Troponin I 6 Hour 6.00 (0-10) ng/mL Troponin I Hi Sens Del -3.00 L (0-12) ng/L Troponin T Baselin e (0-10) ng/mL Troponin T 120 Min [place] (0-10) ng/mL Delta Troponin T (0-10) ABS# C-Reactive Protein (0.0-4.9) mg/L NT-Pro-B Natriuret Pep (0-125) pg/mL Total Protein (6.6-8.7) g/dL Albumin (3.5-5.2) g/dL Globulin (1.3-4.6) g/dL Procalcitonin (0-0.5) ng/mL TSH (0.27-4.20) uIU/ mL Urine Color Yellow (Yellow) Urine Appearance Hazy A (CLEAR) Urine pH 8 H (5-7) Ur Specific Gravit y 1.005 (1.005-1.030) Urine Protein Neg (Negative) Urine Glucose (UA) Norm (Normal) Urine Ketones Negative (Negative) Urine Occult Blood Neg (Negative) Urine Nitrate Negative (Negative) Urine Bilirubin Neg (NEGATIVE) Prot Sulfosalicyli c Acd Negative Urine Urobilinogen Norm (Negative) mg/dL Ur Leukocyte Stephanie ase Negative (Negative) Urine RBC Rare (0-2) /hpf Urine WBC 0-4 H (0-5) /hpf Ur Squamous Epith Cells 0-4 H (0-5) Amorphous Sediment 2+ Urine Bacteria Trace (NONE) Urine Mucus Trace 08/04/19 Range/Units 04:11 WBC (4.0-10.0) 10^3/ uL RBC (4.1-5.3) 10^6/u L Hgb (11.5-15.3) g/dL Hct (37.0-47.0) % MCV (81-99) fL MCH (28.0-34.0) pg MCHC (30.0-36.0) g/dL RDW (12.1-15.1) % Plt Count (130-400) 10^3/c mm MPV (7.4-10.4) fL Neut % (Auto) % Lymph % (Auto) % [place] % (Auto) % Eos % (Auto) % Baso % (Auto) % Neut # (Auto) (1.8-7.7) 10^3/u L Lymph # (Auto) (0.8-4.8) 10^3/u L [place] # (Auto) (0.2-0.9) 10^3/u L Eos # (Auto) (0.0-0.8) 10^3/u L Baso # (Auto) (0.0-0.1) 10^3/u L Nucleated RBC % (a uto) % Nucleated RBCs # /100WBC ESR (0-15) mm/hr D-Dimer (0-0.59) ug/mIFE U Sodium (136-145) mmol/L Potassium (3.5-5.1) mmol/L Chloride (98-107) mmol/L Carbon Dioxide (22-29) mmol/L Anion Gap (5-19) BUN (6-20) mg/dL Creatinine (0.5-0.9) mg/dL GFR Calculation (90-130) mL/min Glucose (65-115) mg/dL Lactic Acid (0.5-2.2) mmol/L Calcium (8.5-10.5) mg/dL Total Bilirubin (0.15-1.2) mg/dL AST (0-32) U/L ALT (0-33) U/L Alkaline Phosphata se (35-105) IU/L Troponin I 6 Hour (0-10) ng/mL Troponin I Hi Sens Del (0-12) ng/L Troponin T Baselin e (0-10) ng/mL Troponin T 120 Min [place] (0-10) ng/mL Delta Troponin T (0-10) ABS# C-Reactive Protein 26.8 H (0.0-4.9) mg/L NT-Pro-B Natriuret Pep 92 (0-125) pg/mL Total Protein (6.6-8.7) g/dL Albumin (3.5-5.2) g/dL Globulin (1.3-4.6) g/dL Procalcitonin 0.13 (0-0.5) ng/mL TSH 2.68 (0.27-4.20) uIU/ mL Urine Color (Yellow) Urine Appearance (CLEAR) Urine pH (5-7) Ur Specific Gravit y (1.005-1.030) Urine Protein (Negative) Urine Glucose (UA) (Normal) Urine Ketones (Negative) Urine Occult Blood (Negative) Urine Nitrate (Negative) Urine Bilirubin (NEGATIVE) Prot Sulfosalicyli c Acd Urine Urobilinogen (Negative) mg/dL Ur Leukocyte Stephanie ase (Negative) Urine RBC (0-2) /hpf Urine WBC (0-5) /hpf Ur Squamous Epith Cells (0-5) Amorphous Sediment Urine Bacteria (NONE) Urine Mucus Discharge Plan Discharge Patient Disposition: Admitted As Inpatient Admit Provider: Rubén Brush Clinical Impression: Pneumonia Qualifiers: Pneumonia type: due to unspecified organism Laterality: bilateral Lung locati on: unspecified part of lung Qualified Code(s): J18.9 - Pneumonia, unspecified organism Sepsis Qualifiers: Sepsis type: sepsis due to unspecified organism Sepsis acute organ dysfunction status: unspecified Qualified Code(s): A41.9 - Sepsis, unspecified organism Condition: Stable Referrals: [facility] [Outside] Discharge Date/Time: 08/04/19 05:27 Sign Out Sign Out Data: Patient Sign Out occurred on 08/04/19 at 00:01. Patient's care was discussed, and care was transferred from to [facility]. Coding Level of Care Code ED Technical Fellow for Chg Fwd Exam Comprehensive The documentation recorded by the Kasandra corley Valerie R, accurately reflects the service I personally performed and the decisions made by Enrico camacho Adegoke I, MD, [facility] Aug 03, 2019 20:45
--- NOTE | 2019-08-03 21:53 | ECG_ITS ---
Measurements Intervals [place] Rate: 73 P: 51 WV: 150 QRS: 42 QRSD: 91 T: 45 QT: 424 QTc: 470 SINUS RHYTHM POSSIBLE LEFT ATRIAL ENLARGEMENT [-0.1mV P WAVE IN V1/V2] Compared to ECG 04/13/2019 05:34:36 No significant changes Electronically Signed On 08-04-2019 9:13:26 CHIEF MEDICAL DIRECTOR by Temo Tony M.D. [email or web address]
--- NOTE | 2019-08-03 22:11 | XR_ITS ---
WS: [id number] XR chest 2V* [id number] REASON FOR EXAM: chest pain FINDINGS: Comparisons were made to May 09, 2019. The lung cortes are adequately aerated there is no active infiltrate seen. The heart and mediastinal interfaces were normal. The hilum and apices are normal. XR/XR chest 2V* [id number] IMPRESSION: No acute cardiopulmonary changes.
[2019-08-03 22:13] LABS: Basophils # 0.1 10^3/uL (0.0-0.1); Basophils % 0.5 %; Eosinophils # 0.2 10^3/uL (0.0-0.8); Eosinophils % 0.8 %; Hematocrit 38.1 % (37.0-47.0); Hemoglobin 12.5 g/dL (11.5-15.3); Lymphocytes # 3.1 10^3/uL (0.8-4.8); Lymphocytes % 11.4 %; Mean Corpuscular HGB Conc 32.8 g/dL (30.0-36.0); Mean Corpuscular Hemoglobin 29.1 pg (28.0-34.0); Mean Corpuscular Volume 88.6 fL (81-99); Mean Platelet Volume 9.7 fL (7.4-10.4); Monocytes # 1.7 10^3/uL (0.2-0.9); Monocytes % 6.1 %; Neutrophils % 80.4 %; Nucleated Red Blood Cells % 0 %; Platelet Count 319 10^3/cmm (130-400); Red Cell Distribution Width 15.6 % (12.1-15.1); White Blood Count 27.4 10^3/uL (4.0-10.0)
[2019-08-03 22:31] LABS: Troponin(5th) Baseline 9 ng/mL (0-10)
[2019-08-03 22:40] LABS: Alanine Aminotransferase 8 U/L (0-33); Albumin Level 3.7 g/dL (3.5-5.2); Alkaline Phosphatase 110 IU/L (35-105); Anion Gap 15.9 (5-19); Aspartate Amino Transferase 11 U/L (0-32); Blood Urea Nitrogen 19 mg/dL (6-20); Calcium 9.2 mg/dL (8.5-10.5); Carbon Dioxide 24 mmol/L (22-29); Chloride 104 mmol/L (98-107); Globulin 2.4 g/dL (1.3-4.6); Glomerular Filtration Rate 52.4 mL/min (90-130); Glucose 104 mg/dL (65-115); NT Pro B Type Natriuretic Pept 92 pg/mL (0-125); Potassium 3.9 mmol/L (3.5-5.1); Sodium 140 mmol/L (136-145); Total Bilirubin 0.2 mg/dL (0.15-1.2); Total Protein 6.1 g/dL (6.6-8.7)
--- NOTE | 2019-08-03 23:53 | ECG_ITS ---
Measurements Intervals [place] Rate: 68 P: 53 NH: 146 QRS: 26 QRSD: 104 T: 48 QT: 438 QTc: 467 SINUS RHYTHM Compared to ECG 04/13/2019 05:34:36 No significant changes Electronically Signed On 08-04-2019 9:15:14 POLICE RESERVES COMMANDER by Temo Tony M.D. [id number]
--- NOTE | 2019-08-03 23:56 | CTR_ITS ---
PROCEDURE INFORMATION: Exam: CT Chest With Contrast Exam date and time: 08/03/2019 12:01 AM Age: 53 years old Clinical indication: Abdominal pain; Generalized; Chest pain; Type not specified; Prior surgery; Surgery date: 6+ months; Surgery type: Hyst, gb, ureter stent, appy; Additional info: Shortness of breath TECHNIQUE: Imaging protocol: Computed tomography of the chest with intravenous contrast. Total DLP: 1475.88 mGy-cm Radiation optimization: All CT scans at this facility use at least one of these dose optimization techniques: automated exposure control; mA and/or kV adjustment per patient size (includes targeted exams where dose is matched to clinical indication); or iterative reconstruction. Contrast material: OMNI 300; Contrast volume: 95 ml; Contrast route: IV; COMPARISON: CT Abdomen/Pelvis Renal [id number] 2019-06-09 13:54 FINDINGS: Thyroid: Small calcification in the left thyroid lobe. Lungs: There is a pulmonary parenchymal calcification consistent with remote granulomatous organism exposure. Patchyground-glass opacities within the lungs, correlate for atypical infection, edema, or toxic causes. 4 mm pleural-based right upper lobe pulmonary nodule. Pleural space: Unremarkable. No pneumothorax. No pleural effusion. Heart: Unremarkable. No cardiomegaly. No pericardial effusion. Aorta: Unremarkable. No aortic aneurysm. Lymph nodes: Shotty mediastinal lymph nodes. Couple mildly enlarged right hilar lymph nodes measuring up to 2.4 cm. Bones/joints: Unremarkable. No acute fracture. Soft tissues: Unremarkable. IMPRESSION: 1. Shotty mediastinal lymph nodes. Couple mildly enlarged right hilar lymph nodes measuring up to 2.4 cm. 2. Patchyground-glass opacities within the lungs, correlate for atypical infection, edema, or toxic causes. 3. 4 mm pleural-based right upper lobe pulmonary nodule. COMMENT: As per Fleischner Society guidelines for follow-up and management of pulmonary nodules: For patients at low risk (minimal or absent history of smoking and of other known risk factors), recommend follow-up chest CT at 12 months; if unchanged, no further follow-up. For patient at high risk (history of smoking or of other known risk factors), recommend initial follow-up chest CT at 6-12 months, then at 18-24 months if no interval change. PROCEDURE INFORMATION: Exam: CT Abdomen And Pelvis With Contrast Exam date and time: 08/03/2019 12:01 AM Age: 53 years old Clinical indication: Abdominal pain; Generalized; Chest pain; Type not specified; Prior surgery; Surgery date: 6+ months; Surgery type: Hyst, gb, ureter stent, appy; Additional info: Shortness of breath TECHNIQUE: Imaging protocol: Computed tomography of the abdomen and pelvis with intravenous contrast. Total DLP: 1475.88 mGy-cm Radiation optimization: All CT scans at this facility use at least one of these dose optimization techniques: automated exposure control; mA and/or kV adjustment per patient size (includes targeted exams where dose is matched to clinical indication); or iterative reconstruction. Contrast material: OMNI 300; Contrast volume: 95 ml; Contrast route: IV; COMPARISON: CT Abdomen/Pelvis Renal [id number] 2019-06-09 13:54 FINDINGS: Liver: Normal. No mass. Gallbladder and bile ducts: Cholecystectomy clips in the right upper quadrant. Pancreas: Normal. No ductal dilation. Spleen: Normal. No splenomegaly. Adrenals: Normal. No mass. Kidneys and ureters: Normal. No hydronephrosis. Stomach and bowel: Unremarkable. No obstruction. No mucosal thickening. Appendix: Appendectomy. Intraperitoneal space: Unremarkable. No free air. No significant fluid collection. Vasculature: Phleboliths. Lymph nodes: Unremarkable. No enlarged lymph nodes. Bladder: Unremarkable as visualized. Reproductive: Hysterectomy. Bones/joints: Mild moderate lumbar spinal stenosis. Soft tissues: Left groin hernia mesh. CT/CT chest abd pel w con* IMPRESSION: No acute abnormality. Radiation Dose CTDIVOL = (mGy): DLP = 1475.88~1475.88 (mGy-cm)
[2019-08-04] VITALS (26 sets, daily range): BP systolic 86–120; BP diastolic 31–76; PULSE 68–89; RESP 17–20; TEMP 36.4–36.7; O2SAT 93–100
[2019-08-04 00:08] LABS: D Dimer 0.35 ug/mIFEU (0-0.59)
[2019-08-04 00:18] LABS: Troponin 5 2HR 8.13 ng/mL (0-10); Troponin 5 2HR Delta -0.87 ABS# (0-10)
[2019-08-04 00:47] LABS: Lactic Sepsis W/Reflex 1.3 mmol/L (0.5-2.2)
[2019-08-04] MEDS: nitroglycerin 0.4 mg sublingual Tablet SUBLINGUAL (00:48)
[2019-08-04] MEDS: ondansetron 4 MG Tablet PO (00:48)
[2019-08-04] MEDS: iohexol 350 mg/mL 100 mL Btl IV (01:29)
[2019-08-04 03:13] LABS: Bilirubin Urine Neg (NEGATIVE); Blood Urine Neg (Negative); Glucose Urine UA Norm (Normal); Ketones Urine Negative (Negative); Leukocyte Esterase Urine Negative (Negative); Nitrate Urine Negative (Negative); Protein Urine Neg (Negative); Specific Gravity, Urine 1.005 (1.005-1.030); Sulfosalicylic Acid Urine Negative; Urine Appearance Hazy (CLEAR); Urine Color Yellow (Yellow); Urobilinogen Urine Norm (Negative); pH Urine 8 (5-7)
[2019-08-04 03:14] LABS: RBC Urine RARE /hpf (0-2); Squamous Epithelial Cell Urine 0-4 (0-5); WBC Urine 0-4 /hpf (0-5)
[2019-08-04 03:15] LABS: Add Urine Culture? No; Amorphous Sediment Urine 2+; Bacteria Urine TRACE; Mucus Urine TRACE
--- NOTE | 2019-08-04 03:53 | ECG_ITS ---
Measurements Intervals [place] Rate: 69 P: 52 [place]: 136 QRS: 46 QRSD: 91 T: 56 QT: 428 QTc: 460 SINUS RHYTHM Compared to ECG 04/13/2019 05:34:36 No significant changes Electronically Signed On 08-04-2019 9:14:57 JACK MACHINE OPERATOR by Temo Tony M.D. [id number]
--- NOTE | 2019-08-04 04:22 | PM.HP ---
Providers/Chief Complaint Primary Care Provider: AMANDEEP Barclay Chief Complaint: chest pain History of Present Illness Latesha Wilhelm is a 53 year old female with a past medical history of COPD on 2 L oxygen as needed, chronic migraines, anxiety depression, who presents to the emergency room due to complaints of chest pain, cough, fevers, fatigue, malaise Chest pain: Patient states that for the last 48 hours she has had substernal chest pain, sharp-like pain, stabbing-like pain, lasting a few minutes, radiating up to her neck, radiating down the left shoulder, associate with shortness of breath, lightheadedness, no diaphoresis, no nausea, no vomiting episodes becoming more frequent, no history of CAD, does have a history of CHF diagnosed recently at [facility] Cough, fevers, fatigue, malaise patient states that she has a productive cough, brown sputum, intermittent fevers, last temperature last night was 102, has fatigue, malaise. Patient states that 2 weeks ago she was admitted at [facility] from double pneumonia and CHF, was treated with antibiotics, and sent home. No recent sick contacts. No recent travel. No calf pain or calf swelling. Of note patient has been recently been evaluated through Dr. Medley office for hematemesis, she states that she gets hematemesis every few days, denies any recent episode, no lightheadedness, no dizziness, has never had an upper GI evaluation Of note recently patient had a surgical procedure by Dr. Fontanez, had a bladder stone fragment removal, a cystolitholopaxy Review of Systems Const: Reports: fever, chills, fatigue and malaise Eyes: Denies: change in vision or blurry vision ENMT: Denies: nasal congestion Card: Reports: chest pain and shortness of breath on exertion; Denies: palpitations, irregular heart rhythm, edema, swelling of feet/ankles or syncope Resp: Reports: shortness of breath and productive cough GI: Denies: abdominal pain, nausea, vomiting, vomiting blood, diarrhea, constipation, blood in stool or black tarry stool : Denies: flank pain, painful urination or urinary frequency Musc: Denies: neck pain or back pain Skin/Breast: Denies: rash Neuro: Denies: headache, dizziness or vertigo Psych: Denies: anxiety or depression Endo: Denies: excessive urination or excessive thirst Medications/Allergies Allergies Allergy/AdvReac Type Severity Reaction Status Date / Time Penicillins Allergy Severe ALGY-Anaphy Verified 08/02/19 10:47 laxis gabapentin [From Neurontin] Allergy Intermediate ADR-Halluci Verified 08/02/19 10:47 nating ketorolac [From Toradol] Allergy Intermediate ALGY-Rash Verified 08/02/19 10:47 lithium Allergy Intermediate ADR-Halluci Verified 08/02/19 10:47 nating influenza virus vac qs Allergy Mild Unknown Verified 08/02/19 10:47 19-20(4 yr up) cell derived [From Flucelvax Quad [id number] (PF)] adhesive tape Allergy Rash Verified 08/02/19 10:47 codeine Allergy GI Verified 08/02/19 10:47 quetiapine [From Seroquel] Allergy Unknown Verified 08/02/19 10:47 risperidone [From Risperdal] Allergy Unkown Verified 08/02/19 10:47 sulfamethoxazole Allergy Unknown Verified 08/02/19 10:47 [From Bactrim] Tetracyclines Allergy Unknown Verified 08/02/19 10:47 trimethoprim [From Bactrim] Allergy Unknown Verified 08/02/19 10:47 ziprasidone [From Geodon] Allergy Unknown Verified 08/02/19 10:47 Additional Medication Information Additional Medication Information: I propose all 5 mg daily Lasix 20 mg p.o. daily Lamotrigine 200 mg p.o. daily Protonix 40 mg p.o. daily Potassium chloride 10 mEq daily Trazodone 200 mg at bedtime Trospim 20mg qd Venlafaxine 25 mg p.o. daily twice daily Valbenazine 40 mg p.o. daily PFSH Acute PFSH: Medical History (Updated 08/04/19 @ 04:34 by Rubén Brush MD) Bladder stone Chronic anxiety Chronic cystitis with hematuria Foreign body in bladder Vomiting blood Surgical History H/O: hysterectomy History of appendectomy History of breast biopsy History of ureter stent Hx of cholecystectomy Social History Smoking and tobacco status: current every day smoker cigarettes Household members: spouse Housing: House Marital status: Number of children: 3 Current gender identity: Female Vitals/I&O/Wt Last Vital Signs Temp 98.2 F 08/03/19 20:53 Pulse 68 08/04/19 03:13 Resp 19 H 08/04/19 03:13 BP 114/69 08/04/19 03:13 Pulse Ox 95 08/04/19 03:13 08/03/19 08/03/19 08/04/19 14:59 22:59 06:59 Intake Total 133.3 / 133.3 Balance 133.3 / 133.3 Weight last 48 hrs Weight 83.461 kg Physical Exam Const: COMMON NORMALS: no apparent distress and oriented x3 GENERAL APPEARANCE: cooperative and comfortable HENMT: COMMON NORMALS: normocephalic HEAD & SCALP: normocephalic Eye: COMMON NORMALS: PERRL and EOMs intact bilaterally GENERAL EYE: normal appearance of both eyes PUPIL: Yes PERRL Neck/C-Spine: COMMON NORMALS: full ROM, no lymphadenopathy, no JVD and thyroid normal THYROID: thyroid normal Lymph: LYMPHATIC: no lymphadenopathy noted Chest: COMMONS NORMALS: inspection of chest normal CHEST: Yes tenderness rib, sternum and sternoclavicular joint Resp: COMMON NORMALS: normal respiratory effort, no retractions and no use of accessory muscles AUSCULTATION: wheezes expiratory wheezes Cardio: COMMON NORMALS: no JVD, regular rate, regular rhythm, S1 normal heart sound, S2 normal heart sound, no gallops, no clicks and no murmurs RATE: regular rate RHYTHM: regular rhythm HEART SOUNDS: S1 normal and S2 normal GI: COMMON NORMALS: normal to inspection, nondistended, normoactive bowel sounds, soft to palpation, non-tender and no hepatosplenomegaly PALPATION: Yes soft and Yes no hepatosplenomegaly Extremity: COMMON NORMALS: normal to inspection, full ROM and no pedal edema Neuro: COMMON NORMALS: oriented x3, CN's II-XII intact bilaterally, moves all extremities and no focal motor deficits Psych: COMMON NORMALS: mental status grossly normal, thought process normal and cooperative THOUGHT PROCESS: normal thought process Data : 08/03/19 22:06 08/03/19 22:06 A&P Assessment and plan (1) Chest pain: -Patient has significant chest wall tenderness, seems a lot like costochondritis -Troponins within normal limits -EKG normal sinus rhythm, no significant ST-T wave changes -Patient had a negative stress test on December 2018 -Her last echocardiogram on 06/07/2014 showed ejection fraction 75% -Patient recently was at [facility], was diagnosed with heart failure Plan: -Continue telemetry monitoring, serial EKGs, troponins -Given her concerns for hematemesis, will hold off on giving her aspirin, statin -Inflammatory markers ESR, CRP, pro-Joe -Chest pain seems a lot like costochondritis, morphine for pain, anti-inflammatory medications when cardiac work-up unremarkable -We will get records from [facility] Status: Acute Code(s): R07.9 - Chest pain, unspecified (2) Pneumonia: -CT chest showed Patchyground-glass opacities within the lungs, correlate for atypical infection, edema, or toxic causes -White blood cell count is 27.4, of note patient was recently on steroids through [facility], white blood cell count on 07/09/2019 was 19.5, it is neutrophilic leukocytosis with neutrophil count of 22 -Patient blood pressure did get as low as 90s over 60s, and fluid improved with fluid boluses -Inflammatory markers, influenza pending -Person was recently at [facility] 2 weeks ago for double pneumonia -Given patient's cough, shortness of breath, fever complaints will treat for hospital-acquired pneumonia Plan: -Vancomycin, Primaxin -Ipratropium -Oxygen therapy -Sputum culture, urine bacterial antigens, influenza, inflammatory markers Status: Acute Code(s): J18.9 - Pneumonia, unspecified organism (3) Hematemesis: -Last episode was a few days ago, hemoglobin stable at 12.5, is having a pending upper GI work-up by Dr. Newell Status: Acute Code(s): K92.0 - Hematemesis (4) COPD (chronic obstructive pulmonary disease): -Not in exacerbation -Continue ipratropium as needed Status: Acute Code(s): J44.9 - Chronic obstructive pulmonary disease, unspecified (5) CHF (congestive heart failure): Will obtain records from [facility] BNP is 92, no bilateral lower extremity edema, no significant clinical signs of CHF Status: Acute Code(s): I50.9 - Heart failure, unspecified (6) GERD without esophagitis: Status: Acute Code(s): K21.9 - Gastro-esophageal reflux disease without esophagitis (7) Chronic migraine: Status: Acute Code(s): G43.709 - Chronic migraine without aura, not intractable, without status migrainosus (8) Chronic anxiety: Status: Acute Code(s): F41.9 - Anxiety disorder, unspecified Attestations Medical Necessity Statement*: Patient requires hospitalization, outpatient with observation, for chest pain, pneumonia Coding Level of Care Code Acute Wrist Closer for [facility] Fwd Diagnoses Chest pain R07.9 Pneumonia J18.9 Hematemesis K92.0 COPD (chronic obstructive pulmonary disease) J44.9 CHF (congestive heart failure) I50.9 GERD without esophagitis K21.9 Chronic migraine G43.709 Chronic anxiety F41.9
[2019-08-04] MEDS: sucralfate 1 gm Tablet PO ×4 (06:03→23:35)
[2019-08-04] MEDS: enoxaparin 40 mg/0.4 mL Syringe SUBCUT (06:03)
[2019-08-04 06:25] LABS: Influenza A by IFA Negative (Negative); Influenza B by IFA Negative (Negative)
[2019-08-04] MEDS: acetaminophen 325 mg Tablet 650 MG PO (06:25)
[2019-08-04 06:55] LABS: C Reactive Protein 26.8 mg/L (0.0-4.9); NT Pro B Type Natriuretic Pept 92 pg/mL (0-125); Thyroid Stimulating Hormone 2.68 uIU/mL (0.27-4.20)
[2019-08-04 07:18] LABS: Procalcitonin 0.13 ng/mL (0-0.5)
[2019-08-04 07:40] LABS: Erythrocyte Sedimentation Rate 15 mm/hr (0-15)
[2019-08-04] MEDS: ipratropium-albuterol 3 mL Neb INHALATION ×4 (08:07→19:11)
[2019-08-04] MEDS: morphine 4 mg/mL SDV 1 mL 1 MG IVP ×3 (08:32→20:59)
[2019-08-04] MEDS: ARIPiprazole 10 mg Tablet 5 MG PO (08:35)
[2019-08-04] MEDS: pantoprazole DR 40 mg Tablet PO (08:36)
[2019-08-04] MEDS: atorvastatin 40 mg Tablet PO (08:36)
[2019-08-04] MEDS: FUROsemide 20 mg Tablet PO (08:36)
[2019-08-04] MEDS: lamoTRIgine 100 mg Tablet 200 MG PO (08:37)
--- NOTE | 2019-08-04 12:50 | ECG_ITS ---
Measurements Intervals [place] Rate: 78 P: 52 [place]: 138 QRS: 50 QRSD: 104 T: 47 QT: 403 QTc: 461 SINUS RHYTHM Compared to ECG 08/04/2019 04:56:59 No significant changes Electronically Signed On 08-05-2019 11:15:21 DEPUTY CONTROLLER by Temo Tony M.D. [id number]
--- NOTE | 2019-08-04 14:55 | PC.NURSE ---
120/73 left arm and 116/67 right
--- NOTE | 2019-08-04 19:09 | P.PN_ITS ---
Subjective Subjective: Interval history: Admitted overnight. Labs noted. States she has been having blood from mouth. On further questioning she states she coughs up blood.She at present is on room air saturating 94%. She denies any N/V, palpitations, headache, SOB. Vitals/I&O/Wt Last Vital Signs Temp 98.1 F 08/04/19 15:14 Pulse 79 08/04/19 15:28 Resp 18 08/04/19 15:18 BP 99/65 08/04/19 15:14 Pulse Ox 95 08/04/19 15:18 08/04/19 08/04/19 08/04/19 06:59 14:59 22:59 Intake Total 2603.83 / 2603.83 700 / 700 480 / 1180 Output Total 900 / 900 900 / 1800 Balance 2603.83 / 2603.83 -200 / -200 -420 / -620 Weight last 48 hrs Weight 83.461 kg Physical Exam Narrative: EXAM NARRATIVE: General: No acute distress, AO x3 HEENT: PERRLA, pupils bilaterally equal and reactive Chest: Normal vesicular breath sounds, no added sounds, equal good air entry bilaterally CVS: S1-S2 regular, no murmurs, no tachycardia, no gallops, no rubs Abdomen: Soft, nontender, no organomegaly, bowel sounds present Neuro: No focal deficits, no facial deformity, AO x3, power 5/5 in all limbs Data : 08/05/19 07:21 08/05/19 07:21 Micro: Microbiology 08/04/19 09:48 Bacterial Antigens - Final Urine,Voided A&P Assessment and plan (1) Chest pain: Status: Acute Code(s): R07.9 - Chest pain, unspecified (2) Pneumonia: Status: Acute Qualifiers: Laterality: bilateral Lung location: unspecified part of lung Pneumonia type: due to unspecified organism Qualified Code(s): J18.9 - Pneumonia, unspecified organism Code(s): J18.9 - Pneumonia, unspecified organism (3) Hematemesis: Status: Acute Code(s): K92.0 - Hematemesis (4) COPD (chronic obstructive pulmonary disease): Status: Acute Code(s): J44.9 - Chronic obstructive pulmonary disease, unspecified (5) CHF (congestive heart failure): Status: Acute Code(s): I50.9 - Heart failure, unspecified (6) GERD without esophagitis: Status: Acute Code(s): K21.9 - Gastro-esophageal reflux disease without esophagitis (7) Chronic migraine: Status: Acute Code(s): G43.709 - Chronic migraine without aura, not intractable, without status migrainosus (8) Chronic anxiety: Status: Acute Code(s): F41.9 - Anxiety disorder, unspecified Additional A&P Information Chest Pain: ACS ruled out, Pericarditis r/o as no change in EKG and not characteristic pain as well. Troponin negative, EKG not s/o ACS. Negative stress in December 2018. Most likely costochondritis vs pleuritic from mediastinal lymphadenopathy Will request documents from [facility] regarding previous admit. Leukocytosis: Chances of pneumonia are very less as infiltrate ruled out on CT chest, patient saturating more than 94% on room air, not complaining of much cough or expectoration, procal negative. Leukocytosis most likely due to marginalization due to steroid use for last 2 weeks. Patient was started on Zosyn and vancomycin in the ER will continue on the same for now and follow the cultures de-escalate accordingly. The patient remains afebrile and hemodynamically stable and plan to discontinue antibiotic tomorrow. Hemoptysis: On further questioning it seems patient has been having hemoptysis but not hematemesis. Most likely secondary to mediastinal lymphadenopathy as seen in CT scan. Patient does not have any history of travel, hiking, exposure to bats or droppings. Chances of malignancy are high. Patient not having any active hemoptysis right now and hemoptysis almost more than 10 days ago with a stable hemoglobin patient would most likely need bronchoscopy as an outpatient. We will send for histoplasma urine antigen, coccidiomycosis PCR antigen, flow cytometry, peripheral smear for now. Continue with duo nebs [id number] with budesonide twice daily. Oxygen supplementation keeping saturation 92%. Patient has no wheezing on examination so we will hold off on steroids for now. Possible CHF: Patient states she was recently diagnosed of CHF at [facility] and was given oral diuretics as an outpatient. As per the last echo in the system patient's ejection fraction was 75% but that echo was more than a year ago. We will try to get documents from hospital regarding previous hospitalization and see if echo was done. For now we will repeat echocardiogram. Patient seems euvolemic at present. We will continue Lasix 20 mg orally at home dose. Strict intake and output charting. Continue telemetry. Discussed in detail regarding need for smoking cessation given possible malignancy C/w chronic medications at home dose. FC Cardiac diet Lovenox for DVT PPX Famotidine for PUD PPx. Attestations Medical Necessity Statement*: Needs continued hospitalisation for chest pain along with possible hilar mass Time Spent in Patient Care: Greater than 35 minutes Coding Level of Care Code Acute Jewel Hole Cornerer for [facility] Fwd Diagnoses Chest pain R07.9 Pneumonia J18.9 Laterality: bilateral Lung location: unspecified part of lung Pneumonia type: due to unspecified organism Hematemesis K92.0 COPD (chronic obstructive pulmonary disease) J44.9 CHF (congestive heart failure) I50.9 GERD without esophagitis K21.9 Chronic migraine G43.709 Chronic anxiety F41.9
[2019-08-04] MEDS: budesonide 0.5 mg/2 mL Neb INHALATION (19:11)
[2019-08-04] MEDS: trazodone 100 mg Tablet 200 MG PO (20:57)
[2019-08-04 22:43] LABS: Lactate Dehydrogenase 308 U/L (135-214)
[2019-08-04 23:02] LABS: LAB Peripheral Smear Sent for Review
[2019-08-04 23:21] LABS: HIV 1 & 2 Antibody Non-Reactive (Non-Reactiv); HIV 1 & 2 Antigen Non-Reactive (Non-Reactiv)
[2019-08-05] VITALS (9 sets, daily range): BP systolic 107–124; BP diastolic 72–80; PULSE 72–88; RESP 16–18; TEMP 36.6–36.9; O2SAT 94–96
[2019-08-05] MEDS: ipratropium-albuterol 3 mL Neb INHALATION ×2 (02:32→08:00)
[2019-08-05] MEDS: morphine 4 mg/mL SDV 1 mL 1 MG IVP ×2 (03:25→09:04)
[2019-08-05] MEDS: sucralfate 1 gm Tablet PO (05:33)
[2019-08-05] MEDS: enoxaparin 40 mg/0.4 mL Syringe SUBCUT (05:34)
[2019-08-05 07:36] LABS: Basophils # 0.1 10^3/uL (0.0-0.1); Basophils % 0.8 %; Eosinophils # 0.4 10^3/uL (0.0-0.8); Eosinophils % 3.5 %; Hematocrit 41.2 % (37.0-47.0); Lymphocytes # 1.6 10^3/uL (0.8-4.8); Lymphocytes % 15.2 %; Mean Corpuscular HGB Conc 31.6 g/dL (30.0-36.0); Mean Corpuscular Hemoglobin 28.5 pg (28.0-34.0); Mean Corpuscular Volume 90.4 fL (81-99); Mean Platelet Volume 9.7 fL (7.4-10.4); Monocytes # 0.9 10^3/uL (0.2-0.9); Monocytes % 8.7 %; Neutrophils # 7.6 10^3/uL (1.8-7.7); Neutrophils % 71.2 %; Nucleated Red Blood Cells % 0 %; Platelet Count 284 10^3/cmm (130-400); Red Blood Count 4.56 10^6/uL (4.1-5.3); Red Cell Distribution Width 15.7 % (12.1-15.1); White Blood Count 10.6 10^3/uL (4.0-10.0)
[2019-08-05] MEDS: budesonide 0.5 mg/2 mL Neb INHALATION (08:00)
[2019-08-05 08:08] LABS: Alanine Aminotransferase 9 U/L (0-33); Albumin Level 3.9 g/dL (3.5-5.2); Alkaline Phosphatase 118 IU/L (35-105); Anion Gap 18.3 (5-19); Aspartate Amino Transferase 11 U/L (0-32); Blood Urea Nitrogen 13 mg/dL (6-20); Calcium 10.1 mg/dL (8.5-10.5); Carbon Dioxide 22 mmol/L (22-29); Chloride 102 mmol/L (98-107); Globulin 2.4 g/dL (1.3-4.6); Glucose 108 mg/dL (65-115); Magnesium 2.4 mg/dL (1.7-2.3); Phosphorus 4.5 mg/dL (2.5-4.5); Potassium 4.3 mmol/L (3.5-5.1); Sodium 138 mmol/L (136-145); Total Bilirubin 0.3 mg/dL (0.15-1.2); Total Protein 6.3 g/dL (6.6-8.7)
[2019-08-05 08:09] LABS: Vancomycin Trough 12.2 ug/mL (10-15)
[2019-08-05] MEDS: FUROsemide 20 mg Tablet PO (09:04)
[2019-08-05] MEDS: atorvastatin 40 mg Tablet PO (09:05)
[2019-08-05] MEDS: ARIPiprazole 10 mg Tablet 5 MG PO (09:05)
[2019-08-05] MEDS: pantoprazole DR 40 mg Tablet PO (09:05)
[2019-08-05] MEDS: lamoTRIgine 100 mg Tablet 200 MG PO (09:06)
--- NOTE | 2019-08-05 11:36 | P.DS_ITS ---
Discharge Providers Date of Admission: 08/04/19 04:39 Date of Discharge: August 05, 2019 Attending Provider at Admission: Rubén Brush MD Attending Provider at Discharge: Tony Molina MD Primary Care Provider: AMANDEEP Barclay Diagnoses at Discharge Discharge Diagnosis (1) Chest pain: Status: Acute (2) Pneumonia: Status: Acute Qualifiers: Laterality: bilateral Lung location: unspecified part of lung Pneumonia type: due to unspecified organism Qualified Code(s): J18.9 - Pneumonia, unspecified organism (3) COPD (chronic obstructive pulmonary disease): Status: Acute (4) CHF (congestive heart failure): Status: Acute (5) GERD without esophagitis: Status: Acute (6) Chronic migraine: Status: Acute (7) Chronic anxiety: Status: Acute (8) Hemoptysis: Status: Acute (9) Hilar mass: Status: Acute Reason for Visit Reason for Visit: Reason For Visit: chest pain Hospital Course Discharge Summary: Latesha Wilhelm is a 53 year old female with a past medical history of COPD on 2 L oxygen as needed, chronic migraines, anxiety depression, who presents to the emergency room on aug 03 due to complaints of chest pain, cough, fevers, fatigue, malaise. Patient was admitted to the hospital due to chest pain which was deemed most likely either due to costochondritis versus ureteric. ACS was ruled out given negative troponins along with normal EKG in the background of normal stress from December 2018. Pericarditis was ruled out from a normal EKG and non-characteristic chest pain. Patient on admission had an elevated white count which at start was thought due to because of pneumonia but as patient had no infiltrate on the CT scan, pro-Joe was negative, patient remained afebrile, patient remained on good saturations on room air without any cough or expectoration pneumonia was ruled out. On interviewing patient stated that she was recently discharged from [facility] where she was treated for double pneumonia further documents were sought from the other hospital which showed she was discharged on slow steroid taper which she was taking on the day of admission so leukocytosis was resumed most likely due to marginalization due to steroid intake. As patient saturation remained well on room air steroids were not continued. Patient also stated on further interviewing that she has been worked up with Dr. Medley with EGD and colonoscopy as an outpatient for a possible hematemesis. Her EGD showed mild gastritis. On further questioning patient revealed that she has been having more hemoptysis but not hematemesis. Patient CT scan revealed multiple hilar lymphadenopathy as high as 2.4 cm lab work was sent to rule out histoplasmosis and coccidiomycosis which are both awaited. Given the long smoking history possibility of malignancy are very high especially in the background of constitutional symptoms of malaise fever and more than 10 pound weight loss in the last 2 months. As patient's hemoglobin was stable and she was not having any active hemoptysis it was decided to refer patient to follow-up with Dr. Bray as an outpatient for bronchoscopy in [address] Bray has been made aware about the case and will see the patient in his clinic. Patient is been discharged in hemodynamically stable condition with her saturations more than 94% on room air both at rest and ambulation without any steroids with a levofloxacin course of 5 days. Physical Exam Narrative: EXAM NARRATIVE: General: No acute distress, AO x3 HEENT: PERRLA, pupils bilaterally equal and reactive Chest: Normal vesicular breath sounds, no added sounds, equal good air entry bilaterally CVS: S1-S2 regular, no murmurs, no tachycardia, no gallops, no rubs Abdomen: Soft, nontender, no organomegaly, bowel sounds present Neuro: No focal deficits, no facial deformity, AO x3, power 5/5 in all limbs Discharge Data Data Completed and Pending: Completed Studies During Hospitalization Category Date Time Status CT chest abd pel w con* Urgent Cat Scan 08/03/19 23:56 Completed XR chest 2V* [id number] Stat Exams 08/03/19 22:11 Completed Pending at discharge Category Date Time Status Angiotensin Conve rting Enzyme Routi ne Lab 08/04/19 19:54 Received Complete Blood Co unt w/Auto AM LABS Lab 08/06/19 04:00 Ordered Complete Blood Co unt w/Auto AM LABS Lab 08/07/19 04:00 Ordered Comprehensive Met abolic Panel AM LA BS Lab 08/06/19 04:00 Ordered Comprehensive Met abolic Panel AM LA BS Lab 08/07/19 04:00 Ordered Histoplasma Antib michelle Stat Lab 08/04/19 19:49 Received Magnesium AM LABS Lab 08/06/19 04:00 Ordered Magnesium AM LABS Lab 08/07/19 04:00 Ordered Miscellaneous Blessing t Routine Lab 08/04/19 09:49 Received Miscellaneous Blessing t Routine Lab 08/04/19 20:57 Received Phosphorus AM LAB S Lab 08/06/19 04:00 Ordered Phosphorus AM LAB S Lab 08/07/19 04:00 Ordered Respiratory Viral Panel PCR Stat Lab 08/04/19 09:05 Ordered Sputum Culture an d Gram Stain Routi ne Lab 08/04/19 13:38 Ordered CV echo complete* [id number] Routine Ultrasound 08/05/19 07:00 Stop Req Labs from last 24 hours 08/05/19 08/05/19 08/05/19 07:21 07:21 07:21 WBC 10.6 H RBC 4.56 Hgb 13.0 Hct 41.2 MCV 90.4 MCH 28.5 MCHC 31.6 RDW 15.7 H Plt Count 284 MPV 9.7 Neut % (Auto) 71.2 Lymph % (Auto) 15.2 Hood % (Auto) 8.7 Eos % (Auto) 3.5 Baso % (Auto) 0.8 Neut # (Auto) 7.6 Lymph # (Auto) 1.6 Hood # (Auto) 0.9 Eos # (Auto) 0.4 Baso # (Auto) 0.1 Nucleated RBC % (a uto) 0 Nucleated RBCs # 0.0 Sodium 138 Potassium 4.3 Chloride 102 Carbon Dioxide 22 Anion Gap 18.3 BUN 13 Creatinine 0.9 GFR Calculation 66.0 L Glucose 108 Calcium 10.1 Phosphorus 4.5 Magnesium 2.4 H Total Bilirubin 0.3 AST 11 ALT 9 Alkaline Phosphata se 118 H Lactate Dehydrogen ase Total Protein 6.3 L Albumin 3.9 Globulin 2.4 Vancomycin Trough 12.2 HIV 1&2 Ab & HIV 1 Ag HIV 1&2 Antibody 08/03/19 08/03/19 22:06 22:06 WBC RBC Hgb Hct MCV MCH MCHC RDW Plt Count MPV Neut % (Auto) Lymph % (Auto) Hood % (Auto) Eos % (Auto) Baso % (Auto) Neut # (Auto) Lymph # (Auto) Hood # (Auto) Eos # (Auto) Baso # (Auto) Nucleated RBC % (a uto) Nucleated RBCs # Sodium Potassium Chloride Carbon Dioxide Anion Gap BUN Creatinine GFR Calculation Glucose Calcium Phosphorus Magnesium Total Bilirubin AST ALT Alkaline Phosphata se Lactate Dehydrogen ase 308 H Total Protein Albumin Globulin Vancomycin Trough HIV 1&2 Ab & HIV 1 Ag Non-reactive HIV 1&2 Antibody Non-reactive Vitals: Last Vital Signs Temp 97.8 F 08/05/19 07:36 Pulse 84 08/05/19 08:01 Resp 18 08/05/19 09:04 BP 124/80 08/05/19 07:36 Pulse Ox 96 08/05/19 08:01 Discharge Plan Discharge Patient Disposition: Home, Self-Care Condition: Stable Prescriptions: New levofloxacin 750 mg tablet 750 mg PO DAILY 5 Days RF: 0 Continued hydroxyzine pamoate [Vistaril] 50 mg capsule 50 mg PO QID PRN (Reason: anxiety) Qty: 120 RF: 3 promethazine 25 mg suppository 25 mg UT Q12H PRN (Reason: nausea and vomiting) Qty: 1 RF: 0 albuterol sulfate 2.5 mg /3 mL (0.083 %) solution for nebulization 2.5 mg INHALATION BID PRN (Reason: Cough) RF: 0 Trelegy Ellipta 100-62.5-25 mcg blister with device 1 inh INHALATION Q24H RF: 0 polyethylene glycol 3350 [Miralax] 17 gram/dose powder 17 gm PO ONCE PRN (Reason: constipation) RF: 0 benzonatate 200 mg capsule 200 mg PO TID PRN (Reason: Cough) RF: 0 bisacodyl [Women's Gentle Laxative(bisac)] 5 mg tablet,delayed release (DR/EC) 5 mg PO DAILY RF: 0 Ingrezza 40 mg capsule 40 mg PO DAILY RF: 0 trospium 20 mg tablet 20 mg PO BID RF: 0 pantoprazole [Protonix] 40 mg tablet,delayed release (DR/EC) 40 mg PO DAILY Qty: 30 RF: 5 trazodone 100 mg tablet 200 mg PO BEDTIME 30 Days Qty: 60 RF: 3 venlafaxine 50 mg tablet 25 mg PO BID Qty: 30 RF: 0 lamotrigine 200 mg tablet 200 mg PO QDAY Qty: 30 RF: 2 sucralfate [Carafate] 1 gram tablet 1 gm PO Q6H Qty: 120 RF: 0 aripiprazole [Abilify] 5 mg tablet 5 mg PO DAILY Qty: 30 RF: 1 potassium chloride 10 mEq Tablet Extended Release 10 meq PO DAILY RF: 0 furosemide [Lasix] 20 mg Tablet 20 mg PO DAILY RF: 0 Discharge Orders: Discharge Order (Routine); Ordered 08/05/19 Ordered By: Tony Molina Referrals: Seth [Outside] Dara Tavera FNP [Primary Care Provider] - 08/19/19 10:00 am Arina Bray MD [Physician] - 08/14/19 11:30 am Discharge Diet: Usual diet Discharge Activity: Resume usual activity Patient Instructions: COPD, Levofloxacin (By mouth), Heart Failure (DC), Sepsis (DC), CHF Stoplight, COPD Stoplight Discharge Date/Time: 08/05/19 13:04 Discharge Attestations Time Spent in Discharge Care*: greater than 30 min Specific Discharge Activities: Specific discharge activities: educating patient, discussing with pcp/other providers, discussing with welfare case worker/social workers/dc planners, documenting/other paperwork and evaluating patient/reviewing data Time Spent in Smoking Cessation: Time spent discussing smoking cessation with patient: more than 10 minutes Status at Discharge: Cognitive status at discharge: cognitively intact , Behavioral status at discharge: cooperative , Functional status at discharge: independent ambulation Overall status at discharge: patient is back to baseline Quality Metrics Clinical Quality Measures During this hospital stay, did patient experience: None Coding Level of Care Code Acute Specialty Transformer Assembler for Chg Fwd Diagnoses Chest pain R07.9 Pneumonia J18.9 Laterality: bilateral Lung location: unspecified part of lung Pneumonia type: due to unspecified organism COPD (chronic obstructive pulmonary disease) J44.9 CHF (congestive heart failure) I50.9 GERD without esophagitis K21.9 Chronic migraine G43.709 Chronic anxiety F41.9 Hemoptysis R04.2 Hilar mass R91.8
--- NOTE | 2019-08-05 13:02 | PC.NURSE ---
Pt given DC instructions. Verbalized understanding. IV removed. Ambulated to personal vehicle with all personal belongings.
[2019-08-06 10:13] LABS: Angiotensin Converting Enzyme 26 U/L (9-67)
[2019-08-08 12:01] LABS: Adenovirus Not Detected (Not Detected); Human Metapneumovirus Not Detected (Not Detected); Human Parainflu Virus 1 Not Detected (Not Detected); Human Parainflu Virus 2 Not Detected (Not Detected); Human Parainflu Virus 3 Not Detected (Not Detected); Human Rsv A Not Detected (Not Detected); Influenza A Not Detected (Not Detected); Influenza B Not Detected (Not Detected); Rhinovirus/Enterovirus Not Detected (Not Detected)
== END 2019-08-05 13:04 | disposition home or self-care (01) ==
LOC: ER 08-04 00:01 → MEDSURG 08-04 05:16
PROVIDERS: Family Medicine; Admitting Provider Family Medicine; Emergency Provider Emergency Medicine; Family Provider Registered Nurse; PCP Registered Nurse; Visit Provider Student in an Organized Health Care Education/Training Program
DX: R07.9 Chest pain, unspecified (principal); J18.9 Pneumonia, unspecified organism; K92.0 Hematemesis; J44.9 Chronic obstructive pulmonary disease, unspecified; I50.9 Heart failure, unspecified; K21.9 Gastro-esophageal reflux disease without esophagitis; G43.709 Chronic migraine without aura, not intractable, without status migrainosus; F41.9 Anxiety disorder, unspecified; Z99.81 Dependence on supplemental oxygen; F17.210 Nicotine dependence, cigarettes, uncomplicated; R91.8 Other nonspecific abnormal finding of lung field; R04.2 Hemoptysis
CPT/HCPCS: 12345; 36415; 71046; 71260; 74177; 80053; 80202; 80500; 81001; 82164; 83605; 83615; 83735; 83880; 84100; 84145; 84443; 84484; 85025; 85378; 85651; 86140; 86403; 86635; 86698; 87385; 87804; 87806; 93005; 94640; 94664; 96365; 96366; 96372; 96375; 99283; 99285; G0378; J0743; J1650; J2270; J3370; J7030; J7050; J7626; Q0162; Q9967

== ENCOUNTER 2019-08-10 12:23 | Inpatient (IN) | payer MEDICARE, MEDICAID, SELFPAY ==
[2019-08-10] VITALS (8 sets, daily range): BP systolic 109–127; BP diastolic 67–71; PULSE 71–105; RESP 16–18; TEMP 36.4–36.6; O2SAT 93–99; BMI 30.7
--- NOTE | 2019-08-10 13:08 | XR_ITS ---
WS: [id number] XR chest 1V portable [id number] REASON FOR EXAM: cp FINDINGS: The heart and mediastinal interfaces are normal. Comparisons were made to August 03, 2019 no active pneumonia, pleural effusion, pulmonary edema, pn eumothorax or mass effect. The hilum and apices are normal. No osseous abnormalities. XR/XR chest 1V portable [id number] IMPRESSION: No active cardiopulmonary disease.
--- NOTE | 2019-08-10 13:09 | ECG_ITS ---
Measurements Intervals [place] Rate: 103 P: 62 CO: 140 QRS: 61 QRSD: 109 T: 60 QT: 355 QTc: 466 SINUS TACHYCARDIA Compared to ECG 08/04/2019 13:08:11 Sinus rhythm no longer present Electronically Signed On 08-10-2019 14:11:28 CROWN AND BRIDGE TECHNICIAN by Freida Sampson M.D. [email or web address]
[2019-08-10 13:53] LABS: Basophils # 0.1 10^3/uL (0.0-0.1); Basophils % 0.4 %; Eosinophils # 0.1 10^3/uL (0.0-0.8); Eosinophils % 0.4 %; Hematocrit 40.5 % (37.0-47.0); Hemoglobin 12.7 g/dL (11.5-15.3); Lymphocytes # 1.5 10^3/uL (0.8-4.8); Lymphocytes % 8.3 %; Mean Corpuscular HGB Conc 31.4 g/dL (30.0-36.0); Mean Corpuscular Hemoglobin 29.2 pg (28.0-34.0); Mean Corpuscular Volume 93.1 fL (81-99); Monocytes # 1.2 10^3/uL (0.2-0.9); Monocytes % 6.6 %; Neutrophils # 15.4 10^3/uL (1.8-7.7); Neutrophils % 83.9 %; Nucleated Red Blood Cells % 0 %; Platelet Count 286 10^3/cmm (130-400); Red Blood Count 4.35 10^6/uL (4.1-5.3); White Blood Count 18.4 10^3/uL (4.0-10.0)
[2019-08-10 14:09] LABS: Alanine Aminotransferase 10 U/L (0-33); Albumin Level 3.9 g/dL (3.5-5.2); Alkaline Phosphatase 119 IU/L (35-105); Anion Gap 18.5 (5-19); Aspartate Amino Transferase 15 U/L (0-32); Blood Urea Nitrogen 20 mg/dL (6-20); Calcium 9.6 mg/dL (8.5-10.5); Carbon Dioxide 21 mmol/L (22-29); Chloride 99 mmol/L (98-107); Globulin 3.1 g/dL (1.3-4.6); Glomerular Filtration Rate 52.4 mL/min (90-130); Glucose 89 mg/dL (65-115); Potassium 3.5 mmol/L (3.5-5.1); Sodium 135 mmol/L (136-145); Total Bilirubin 0.4 mg/dL (0.15-1.2)
--- NOTE | 2019-08-10 14:10 | ED_ITS ---
Entered by Jocelyne Hood, acting as scribe for Bryant Whitley DO Aug 10, 2019 12:23 HPI - Chest Pain General: Chief Complaint: Chest Pain Stated Complaint: CP Time Seen by Provider: 08/10/19 14:06 Source: patient Mode of arrival: ambulatory Limitations: no limitations History of Present Illness: HPI narrative: 53 yo Female presents to ED with complaint of chest pain, fever, and chills. Pt states that last Monday she was admitted to [facility] and a CT of her chest showed pulmonary nodules. Pt states that she is not feeling well and has pain running up into her neck. Pt states that last night she was running a fever and has had chills. Pt states that her pain is worse with movement MD complaint: chest pain Onset (ago): day(s) Timing of current episode: constant and still present Prior episodes: Yes Onset: during rest Pain location: substernal Pain radiation: neck Pain scale (0-10): 9 Quality: other (pressure) Relieving factors: remaining still Exacerbating factors: movement Context: recent illness Associated symptoms: Reports fever(s); Deny abdominal pain, dyspnea, nausea, palpitations, syncope or vomiting Treatment prior to arrival: none Review of Systems Const: Reports: fever and chills Eyes: Denies: change in vision or blurry vision ENMT: Denies: throat pain, oral sores/lesions, dental pain, nasal discharge or nasal congestion Card: Reports: chest pain; Denies: palpitations, irregular heart rhythm, edema, syncope, shortness of breath on exertion, shortness of breath when lying down or leg pain with exertion Resp: Denies: shortness of breath, productive cough, non-productive cough or wheezing GI: Denies: abdominal pain, nausea, vomiting, vomiting blood, coffee grounds in vomit, difficulty swallowing, heartburn/indigestion, diarrhea, constipation, cramping, blood in stool or black tarry stool : Denies: flank pain, painful urination, urinary frequency, urinary urgency, urinary incontinence or blood in urine Musc: Denies: neck pain, back pain, extremity pain, extremity swelling, joint pain or joint swelling Skin/Breast: Denies: rash, itching or redness Neuro: Denies: headache, numbness in extremities, weakness in extremities, changes in sensation, lack of coordination, difficulty walking, frequent falls, dizziness, vertigo or confusion Psych: Denies: anxiety, depression, loss of interest, visual hallucinations, auditory hallucinations, suicidal ideation or homicidal ideation Endo: Denies: excessive urination, excessive thirst, tired all the time or cold intolerance Wilbur/Lymph: Denies: easy bruising, easy bleeding, petechiae, enlarged lymph nodes or tender lymph nodes PFSH ED PFSH: Medical History Bladder stone Chronic anxiety Chronic cystitis with hematuria Foreign body in bladder Hemoptysis Surgical History H/O: hysterectomy History of appendectomy History of breast biopsy History of ureter stent Hx of cholecystectomy Family History Other Asthma Cancer Diabetes Heart disease Social History Smoking and tobacco status: current every day smoker cigarettes Household members: spouse Housing: House Marital status: Number of children: 3 Current gender identity: Female Physical Exam Const: COMMON NORMALS: average body habitus, oriented x3 and alert GENERAL APPEARANCE: cooperative, comfortable, well kempt and well developed NUTRITIONAL APPEARANCE: obese ORIENTATION/CONSCIOUSNESS: Yes awake, Yes oriented to person and Yes oriented to place HENMT: COMMON NORMALS: normocephalic, head/scalp atraumatic, EAC's normal, TM's normal bilaterally, external nose normal, moist oral mucous membranes and oropharynx normal HEAD & SCALP: normocephalic and atraumatic NOSE: external nose normal EXTERNAL AUDITORY CANAL: EAC's normal TYMPANIC MEMBRANE: TM's normal bilaterally MOUTH: oral and palatal mucosa normal, lip normal and tongue normal THROAT: posterior oropharynx normal and tonsils normal Eye: COMMON NORMALS: PERRL, EOMs intact bilaterally, conjunctivae normal and no scleral icterus CONJUNCTIVA: Yes conjunctivae normal PUPIL: Yes PERRL Neck/C-Spine: COMMON NORMALS: full ROM, no lymphadenopathy, supple, no meningeal signs and thyroid normal THYROID: thyroid normal and asymmetrical Lymph: LYMPHATIC: no lymphadenopathy noted Resp: COMMON NORMALS: normal respiratory effort, no retractions, no use of accessory muscles and clear to auscultation bilaterally AUSCULTATION: clear to auscultation bilaterally Cardio: COMMON NORMALS: regular rate and regular rhythm RATE: regular rate RHYTHM: regular rhythm HEART SOUNDS: no murmurs GI: COMMON NORMALS: normal to inspection, nondistended, normoactive bowel sounds, soft to palpation and no hepatosplenomegaly PALPATION: Yes soft and Yes no hepatosplenomegaly : COMMON NORMALS: Yes no CVA tenderness BLADDER/KIDNEY EXAM: Yes no CVA tenderness Back/Pelvis: COMMON NORMALS: no CVA tenderness LUMBAR SPINE/LOWER BACK: Yes normal to inspection Extremity: COMMON NORMALS: no clubbing, cyanosis or edema, no calf tenderness and no pedal edema Neuro: COMMON NORMALS: oriented x3 SENSORIUM/ORIENTATION: Yes alert, Yes oriented to person and Yes oriented to place MENINGEAL SIGNS: Yes no meni ngeal signs Psych: APPEARANCE: Yes well kempt Skin: COMMON NORMALS: no rashes or lesions noted and skin turgor normal GENERAL SKIN EXAM: no rashes or lesions noted and turgor normal Course Vital Signs: Vital signs: Vital Signs Temperature 98.2 F 08/12/19 10:52 Pulse Rate 80 08/12/19 10:52 Respiratory Rate 18 08/12/19 10:52 Blood Pressure 92/60 08/12/19 10:52 Pulse Oximetry 99 08/12/19 10:52 MDM - Chest Pain Lab Data: Labs: Lab Results 08/10/19 08/10/19 08/10/19 Range/Units 13:47 13:47 13:47 WBC 18.4 H (4.0-10.0) 10^3/ uL RBC 4.35 (4.1-5.3) 10^6/u L Hgb 12.7 (11.5-15.3) g/dL Hct 40.5 (37.0-47.0) % MCV 93.1 (81-99) fL MCH 29.2 (28.0-34.0) pg MCHC 31.4 (30.0-36.0) g/dL RDW 15.0 (12.1-15.1) % Plt Count 286 (130-400) 10^3/c mm MPV 10.0 (7.4-10.4) fL Neut % (Auto) 83.9 % Lymph % (Auto) 8.3 % [place] % (Auto) 6.6 % Eos % (Auto) 0.4 % Baso % (Auto) 0.4 % Neut # (Auto) 15.4 H (1.8-7.7) 10^3/u L Lymph # (Auto) 1.5 (0.8-4.8) 10^3/u L [place] # (Auto) 1.2 H (0.2-0.9) 10^3/u L Eos # (Auto) 0.1 (0.0-0.8) 10^3/u L Baso # (Auto) 0.1 (0.0-0.1) 10^3/u L Nucleated RBC % (a uto) 0 % Nucleated RBCs # 0.0 /100WBC Sodium 135 L (136-145) mmol/L Potassium 3.5 (3.5-5.1) mmol/L Chloride 99 (98-107) mmol/L Carbon Dioxide 21 L (22-29) mmol/L Anion Gap 18.5 (5-19) BUN 20 (6-20) mg/dL Creatinine 1.1 H (0.5-0.9) mg/dL GFR Calculation 52.4 L (90-130) mL/min Glucose 89 (65-115) mg/dL Calcium 9.6 (8.5-10.5) mg/dL Total Bilirubin 0.4 (0.15-1.2) mg/dL AST 15 (0-32) U/L ALT 10 (0-33) U/L Alkaline Phosphata se 119 H (35-105) IU/L Troponin T Baselin e 6 (0-10) ng/mL Troponin T 120 Min marek (0-10) ng/mL Delta Troponin T (0-10) ABS# Total Protein 7.0 (6.6-8.7) g/dL Albumin 3.9 (3.5-5.2) g/dL Globulin 3.1 (1.3-4.6) g/dL Urine Color (Yellow) Urine Appearance (CLEAR) Urine pH (5-7) Ur Specific Gravit y (1.005-1.030) Urine Protein (Negative) Urine Glucose (UA) (Normal) Urine Ketones (Negative) Urine Blood (Negative) Urine Nitrate (Negative) Urine Bilirubin (NEGATIVE) Urine Urobilinogen (Negative) mg/dL Ur Leukocyte Stephanie ase (Negative) Influenza Type A A g (Negative) POC Influenza B Ag (Negative) 08/10/19 08/10/19 08/10/19 Range/Units 14:20 15:23 15:51 WBC (4.0-10.0) 10^3/ uL RBC (4.1-5.3) 10^6/u L Hgb (11.5-15.3) g/dL Hct (37.0-47.0) % MCV (81-99) fL MCH (28.0-34.0) pg MCHC (30.0-36.0) g/dL RDW (12.1-15.1) % Plt Count (130-400) 10^3/c mm MPV (7.4-10.4) fL Neut % (Auto) % Lymph % (Auto) % [place] % (Auto) % Eos % (Auto) % Baso % (Auto) % Neut # (Auto) (1.8-7.7) 10^3/u L Lymph # (Auto) (0.8-4.8) 10^3/u L [place] # (Auto) (0.2-0.9) 10^3/u L Eos # (Auto) (0.0-0.8) 10^3/u L Baso # (Auto) (0.0-0.1) 10^3/u L Nucleated RBC % (a uto) % Nucleated RBCs # /100WBC Sodium (136-145) mmol/L Potassium (3.5-5.1) mmol/L Chloride (98-107) mmol/L Carbon Dioxide (22-29) mmol/L Anion Gap (5-19) BUN (6-20) mg/dL Creatinine (0.5-0.9) mg/dL GFR Calculation (90-130) mL/min Glucose (65-115) mg/dL Calcium (8.5-10.5) mg/dL Total Bilirubin (0.15-1.2) mg/dL AST (0-32) U/L ALT (0-33) U/L Alkaline Phosphata se (35-105) IU/L Troponin T Baselin e (0-10) ng/mL Troponin T 120 Min marek 6.00 (0-10) ng/mL Delta Troponin T 0 (0-10) ABS# Total Protein (6.6-8.7) g/dL Albumin (3.5-5.2) g/dL Globulin (1.3-4.6) g/dL Urine Color Straw (Yellow) Urine Appearance Clear (CLEAR) Urine pH 6.0 (5-7) Ur Specific Gravit y 1.010 (1.005-1.030) Urine Protein Neg (Negative) Urine Glucose (UA) Norm (Normal) Urine Ketones Negative (Negative) Urine Blood Neg (Negative) Urine Nitrate Negative (Negative) Urine Bilirubin Neg (NEGATIVE) Urine Urobilinogen Norm (Negative) mg/dL Ur Leukocyte Stephanie ase Negative (Negative) Influenza Type A A g Negative (Negative) POC Influenza B Ag Negative (Negative) Imaging Data^: CXR: Radiologist's impression: [place] [address] XRay Report Signed Patient: Nazia Wilhelm #: [id number] : 1965Acct#:[id number] Age/Sex: 53 / FADM Date: 08/10/19 Loc: [facility]/Bed: Attending Dr: Ordering Provider/Ordering MD: Damien Urbina MD Date of Service: 08/10/19 Procedure(s): XR chest 1V portable [id number] Accession Number(s): [id number] Report Number: [id number] WS: [id number] XR chest 1V portable [id number] REASON FOR EXAM: cp FINDINGS: The heart and mediastinal interfaces are normal. Comparisons were made to August 03, 2019 no active pneumonia, pleural effusion, pulmonary edema, pneumothorax or mass effect. The hilum and apices are normal. No osseous abnormalities. XR/XR chest 1V portable [id number] IMPRESSION: No active cardiopulmonary disease. Dictated By:Devon Gudino DO Signed By:Devon Gudino DOSigned Date/Time:08/10/19 1333 DD/ 1330 CTA Chest: Radiologist's impression: [place] [address] CT Scan Report Signed Patient: Nazia Wilhelm #: [id number] : 1965Acct#:[id number] Age/Sex: 53 / FADM Date: 08/10/19 Loc: [facility]/Bed: Attending Dr: Ordering Provider/Ordering MD: Bryant Whitley DO Date of Service: 08/10/19 Procedure(s): CT angio chest PE protcl [id number] Accession Number(s): [id number] Report Number: [id number] PROCEDURE INFORMATION: Exam: CT Angiography Chest With Contrast Exam date and time: 08/10/2019 4:37 PM Age: 53 years old Clinical indication: Shortness of breath; Patient HX: C/O central cp w SOB; Additional info: Dyspnea TECHNIQUE: Imaging protocol: Computed tomographic angiography of the chest with intravenous contrast. 3D rendering: MIP and/or 3D reconstructed images were created by the technologist. Total DLP: 583.3 mGy-cm Radiation optimization: All CT scans at this facility use at least one of these dose optimization techniques: automated exposure control; mA and/or kV adjustment per patient size (includes targeted exams where dose is matched to clinical indication); or iterative reconstruction. Contrast material: VISI 320; Contrast volume: 95 ml; Contrast route: 18G; COMPARISON: CTA Chest-Pulmonary Emb [id number] 05/08/2017 1:24 PM FINDINGS: There are degenerative changes of the spine. There are diffuse pulmonary infiltrates greatest within the upper lobes. There is no pleural effusion. There is no pneumothorax. There are no suspicious pulmonary nodules. The central airways are normal in caliber. The thyroid gland is unremarkable. There is no axillary adenopathy. There is mediastinal and hilar adenopathy which appears stable compared to the old exam. Interrogation of the pulmonary arteries in multiple planes shows no evidence for pulmonary embolism. The aorta is normal in caliber with no evidence for aneurysm or dissection. The heart is normal in size. There is no evidence for right heart failure. The upper abdominal structures are unremarkable. CT/CT angio chest PE protcl [id number] IMPRESSION: 1. Diffuse pulmonary infiltrates compatible with pneumonia. 2. No evidence for pulmonary embolism. 3. Stable mediastinal and hilar adenopathy. Radiation Dose CTDIVOL = (mGy): DLP = 583.3 (mGy-cm) Dictated By:Jeffery Rae MD Signed By:Jeffery Rae MDSigned Date/Time:08/10/191902 DD/ 01 Discharge Plan Discharge Patient Disposition: Admitted As Inpatient Admit Provider: Tony Molina Clinical Impression: Pneumonia, COPD (chronic obstructive pulmonary disease) Condition: Stable Interventions: ED Discharge Assessment Last Done: 08/10/19 20:23 Discharge Date/Time: 08/10/19 20:24 Coding Level of Care Code ED Online Banking Specialist for Chg Fwd Exam Comprehensive The documentation recorded by the Sana corley Carmen, accurately reflects the service I personally performed and the decisions made by Gutierrez camacho Curtis L, DO Aug 10, 2019 12:23
[2019-08-10 14:12] LABS: Troponin(5th) Baseline 6 ng/mL (0-10)
[2019-08-10 15:18] LABS: Influenza A by IFA Negative (Negative); Influenza B by IFA Negative (Negative)
[2019-08-10 15:42] LABS: Add Urine Microscopic? NO
[2019-08-10 15:44] LABS: Bilirubin Urine Neg (NEGATIVE); Blood Urine Neg (Negative); Glucose Urine UA Norm (Normal); Ketones Urine Negative (Negative); Leukocyte Esterase Urine Negative (Negative); Nitrate Urine Negative (Negative); Protein Urine Neg (Negative); Urine Appearance Clear (CLEAR); Urine Color Straw (Yellow); Urobilinogen Urine Norm (Negative)
--- NOTE | 2019-08-10 16:02 | CTR_ITS ---
PROCEDURE INFORMATION: Exam: CT Angiography Chest With Contrast Exam date and time: 08/10/2019 4:37 PM Age: 53 years old Clinical indication: Shortness of breath; Patient HX: C/O central cp w SOB; Additional info: Dyspnea TECHNIQUE: Imaging protocol: Computed tomographic angiography of the chest with intravenous contrast. 3D rendering: MIP and/or 3D reconstructed images were created by the technologist. Total DLP: 583.3 mGy-cm Radiation optimization: All CT scans at this facility use at least one of these dose optimization techniques: automated exposure control; mA and/or kV adjustment per patient size (includes targeted exams where dose is matched to clinical indication); or iterative reconstruction. Contrast material: VISI 320; Contrast volume: 95 ml; Contrast route: 18G; COMPARISON: CTA Chest-Pulmonary Emb [id number] 05/08/2017 1:24 PM FINDINGS: There are degenerative changes of the spine. There are diffuse pulmonary infiltrates greatest within the upper lobes. There is no pleural effusion. There is no pneumothorax. There are no suspicious pulmonary nodules. The central airways are normal in caliber. The thyroid gland is unremarkable. There is no axillary adenopathy. There is mediastinal and hilar adenopathy which appears stable compared to the old exam. Interrogation of the pulmonary arteries in multiple planes shows no evidence for pulmonary embolism. The aorta is normal in caliber with no evidence for aneurysm or dissection. The heart is normal in size. There is no evidence for right heart failure. The upper abdominal structures are unremarkable. CT/CT angio chest PE protcl [id number] IMPRESSION: 1. Diffuse pulmonary infiltrates compatible with pneumonia. 2. No evidence for pulmonary embolism. 3. Stable mediastinal and hilar adenopathy. Radiation Dose CTDIVOL = (mGy): DLP = 583.3 (mGy-cm)
[2019-08-10 16:25] LABS: Troponin 5 2HR Delta 0 ABS# (0-10)
[2019-08-10] MEDS: iodixanol 320 mg/mL 100mL Btl IV (16:44)
--- NOTE | 2019-08-10 19:09 | ECG_ITS ---
Measurements Intervals [place] Rate: 84 P: 60 [place]: 157 QRS: 45 QRSD: 106 T: 65 QT: 406 QTc: 481 SINUS RHYTHM Compared to ECG 08/10/2019 12:43:37 Sinus tachycardia no longer present Electronically Signed On 08-10-2019 19:31:32 BUILDING PERFORMANCE SPECIALIST by Freida Sampson M.D. [id number]
[2019-08-10] MEDS: cefTRIAXone 1,000 MG in sodium chloride 0.9% (plus) 50 ML 100 MG IV (19:42)
--- NOTE | 2019-08-10 20:03 | P.HP_ITS ---
Providers/Chief Complaint Admitting Physician: Tony Molina MD Primary Care Provider: AMANDEEP Barclay Chief Complaint: CP History of Present Illness Latesha Wilhelm is a 53 year old female with past medical history of COPD on 2 L oxygen supplementation, chronic migraines, anxiety/depression who was admitted in hospital from August 03 to August 05 because of chest pain, cough, fevers, fatigue and malaise. Patient also gave history of multiple episodes of hemoptysis over last 1 year for which she had an EGD as an outpatient which showed gastritis. Her last hemoptysis prior to previous admission was more than 3 weeks ago. During her hospitalization chest pain was thought most likely due to costochondritis or pleuritic. CT chest was done which showed multiple hilar lymphadenopathy as high as 2.4 cm which was thought most likely due to malignancy and she was due to see Dr. Bray on coming Monday for a possible bronchoscopy as an outpatient. On that admission her respiratory viral panel, histoplasmosis, procalcitonin, troponins were negative. She had an elevated white count which is thought most likely due to recent high-dose steroids that she had received from a previous hospitalization at [facility]. She presented to the ER again today complaining of chest pain which is more central, nonradiating, not resting, constricting type which is brought upon with cough. Chest pain settled down after she rested. Patient states since she has been discharged she has had 3 episodes of hemoptysis with last episode yesterday morning. She states hemoptysis is mostly a tablespoon size and usually consist of lobo blood. She denies of having any fever, chills, nausea, vomiting, diaphoresis, edema. In the ER today she was found to have an elevated white count of 15,000, saturating 94% on room air and a CT chest was done to rule out PE which showed diffuse pulmonary infiltrate and mediastinal hilar adenopathy. Review of Systems Const: Denies: fever, chills, body aches, change in appetite, malaise, night sweats, diaphoresis, change in sleep pattern, daytime sleepiness or snoring Eyes: Denies: change in vision, blurry vision, photophobia, eye discomfort or eye discharge ENMT: Denies: throat pain, enlarged tonsils, hoarseness, mouth pain, oral sores/lesions, dry mouth, tinnitus, nasal congestion or post nasal drip Card: Reports: chest pain and lightheadedness; Denies: palpitations, irregular heart rhythm, edema, swelling of feet/ankles, syncope, pre-syncope, shortness of breath on exertion, shortness of breath when lying down, leg pain with exertion or bluish discoloration of hands/feet Resp: Reports: productive cough, coughing up blood and chest congestion; Denies: shortness of breath, non-productive cough, wheezing, stridor, pain on inspiration or change in phlegm color GI: Denies: abdominal pain, nausea, vomiting, vomiting blood, coffee grounds in vomit, difficulty swallowing, heartburn/indigestion, diarrhea, constipation, bloating, cramping, change in bowel habits, painful bowel movements, blood in stool or black tarry stool : Denies: flank pain, painful urination, urinary frequency, urinary urgency, urinary hesitancy, nighttime urination or blood in urine Musc: Denies: neck pain, back pain, extremity pain, joint pain, joint swelling, redness, joint stiffness or limited range of motion Neuro: Denies: headache, numbness in extremities, weakness in extremities, changes in sensation, lack of coordination, difficulty walking, frequent falls, dizziness, vertigo, confusion, slurred speech, difficulty communicating thoughts or seizure-like activity Psych: Denies: anxiety, depression, mood swings, panic attacks, hopelessness or irritability Endo: Denies: excessive urination, excessive thirst, tired all the time, cold intolerance, excessive sweating, flushing or heat intolerance Wilbur/Lymph: Denies: easy bruising or easy bleeding All/Imm: Denies: tongue swelling, facial swelling or acute wheezing Medications/Allergies Home Medications Medication Instructions Recorded Confirmed Last Taken Type lamotrigine 200 mg PO DAILY 08/10/19 08/10/19 08/10/19 History levofloxacin [Levaquin] 750 mg PO DAILY 08/10/19 08/10/19 08/10/19 History lorazepam 1 mg PO DAILY PRN 08/10/19 08/10/19 08/10/19 History Allergies Allergy/AdvReac Type Severity Reaction Status Date / Time Penicillins Allergy Severe ALGY-Anaphy Verified 08/02/19 10:47 laxis gabapentin [From Neurontin] Allergy Intermediate ADR-Halluci Verified 08/02/19 10:47 nating ketorolac [From Toradol] Allergy Intermediate ALGY-Rash Verified 08/02/19 10:47 lithium Allergy Intermediate ADR-Halluci Verified 08/02/19 10:47 nating influenza virus vac qs Allergy Mild Unknown Verified 08/02/19 10:47 19-20(4 yr up) cell derived [From Flucelvax Quad (PF)] adhesive tape Allergy Rash Verified 08/02/19 10:47 codeine Allergy GI Verified 08/02/19 10:47 quetiapine [From Seroquel] Allergy Unknown Verified 08/02/19 10:47 risperidone [From Risperdal] Allergy Unkown Verified 08/02/19 10:47 sulfamethoxazole Allergy Unknown Verified 08/02/19 10:47 [From Bactrim] Tetracyclines Allergy Unknown Verified 08/02/19 10:47 trimethoprim [From Bactrim] Allergy Unknown Verified 08/02/19 10:47 ziprasidone [From Geodon] Allergy Unknown Verified 08/02/19 10:47 PFSH Acute PFSH: Medical History Bladder stone Chronic anxiety Chronic cystitis with hematuria Foreign body in bladder Hemoptysis Surgical History H/O: hysterectomy History of appendectomy History of breast biopsy History of ureter stent Hx of cholecystectomy Family History Other Asthma Cancer Diabetes Heart disease Social History Smoking and tobacco status: current every day smoker cigarettes Household members: spouse Housing: House Marital status: Number of children: 3 Current gender identity: Female Vitals/I&O/Wt Last Vital Signs Temp 97.8 F 08/10/19 12:35 Pulse 105 H 08/10/19 12:35 Resp 16 08/10/19 12:35 BP 127/71 08/10/19 12:35 Pulse Ox 96 08/10/19 14:22 08/10/19 08/10/19 08/10/19 06:59 14:59 22:59 Intake Total 100 / 100 Balance 100 / 100 Weight last 48 hrs Weight 83.915 kg Physical Exam Narrative: EXAM NARRATIVE: General: No acute distress, AO x3 HEENT: PERRLA, pupils bilaterally equal and reactive Chest: Normal vesicular breath sounds, no added sounds, equal good air entry bilaterally CVS: S1-S2 regular, no murmurs, no tachycardia, no gallops, no rubs Abdomen: Soft, nontender, no organomegaly, bowel sounds present Neuro: No focal deficits, no facial deformity, AO x3, power 5/5 in all limbs Data : 08/10/19 13:47 08/10/19 13:47 Micro: Microbiology 08/10/19 19:43 Blood Culture - Preliminary Blood SPECIMEN COLLECTED 08/10/19 19:50 Blood Culture - Preliminary Blood SPECIMEN COLLECTED A&P Assessment and plan (1) Chest pain: Status: Acute Code(s): R07.9 - Chest pain, unspecified (2) Pneumonia: Status: Acute Qualifiers: Laterality: bilateral Lung location: unspecified part of lung Pneumonia type: due to unspecified organism Qualified Code(s): J18.9 - Pneumonia, unspecified organism Code(s): J18.9 - Pneumonia, unspecified organism (3) Hemoptysis: Status: Acute Code(s): R04.2 - Hemoptysis (4) Hilar mass: Status: Acute Code(s): R91.8 - Other nonspecific abnormal finding of lung field (5) COPD (chronic obstructive pulmonary disease): Status: Acute Code(s): J44.9 - Chronic obstructive pulmonary disease, unspecified (6) GERD without esophagitis: Status: Acute Code(s): K21.9 - Gastro-esophageal reflux disease without esophagitis Additional A&P Information Chest pain: Patient has a significant smoking history. She had a similar presentation earlier this week at that time ACS was ruled out. And pericarditis ruled out as well. We will repeat troponins again. Baseline troponin is 6 with a delta of 0.78 and 6 hours EKG on presentation this time read by me does not show any ST-T changes, sinus rhythm 84 bpm. We will check proBNP. Recheck lipid panel tomorrow morning. Chest pain could be because of pneumonia as well. On her last admission 6 days ago at that time SHANTE levels were normal, pro-Joe was negative, respiratory viral panel was negative, negative bacterial antigen panel. We will start her on vancomycin and imipenem due to penicillin allergy due to recent hospitalization. Given her recurrent admissions because of same patient would most likely need a 5 to 7-day course of antibiotics. Check procalcitonin, Legionella antigen and antibody, bacterial antigen and urine, sputum culture and Gram stain. Flu is negative today. Hilar mass/hemoptysis: Most likely the cause of her chest pain. Patient was supposed to see Dr. Bray as an outpatient on Monday for probe possible bronchoscopy. Will consult Dr. Bray on Monday and see if patient can get bronchoscopy as an inpatient. Patient's hemoglobin seems to be stable as compared to last time. We will continue to watch. Tessalon Perles as needed. Budesonide twice daily, DuoNebs every 6 hours. As stated above patient's viral panel histoplasma was negative on the last admissions. Most likely the mass is malignant. Patient is aware of possibility of malignancy given her prolonged smoking history. CHF: Patient was recently diagnosed of possible CHF at [facility]. No echo in the system. On review of her old documents from [facility] her EF was 50 to 55% wi th no diastolic dysfunction. We will stop IV fluids as patient looks euvolemic for now. Will encourage oral intake. Check proBNP. Given recurrent admission we will get an echocardiogram. Continue chronic anxiety medications like ambifly, venlafaxine, lamotrigine. Full code. Cardiac diet. Lovenox for DVT prophylaxis. Protonix for PUD prophylaxis Attestations Medical Necessity Statement*: Hospitalization for more than 2 midnights for hemoptysis and hilar mass under evaluation Time Spent in Patient Care: Greater than 35 minutes Coding Level of Care Code Acute Boot And Shoe Laborer for Chg Fwd Diagnoses Chest pain R07.9 Pneumonia J18.9 Laterality: bilateral Lung location: unspecified part of lung Pneumonia type: due to unspecified organism Hemoptysis R04.2 Hilar mass R91.8 COPD (chronic obstructive pulmonary disease) J44.9 GERD without esophagitis K21.9
[2019-08-10] MEDS: azithromycin 500 MG in sodium chloride 0.9% 250 ML 250 MG IV (20:15)
[2019-08-10 20:18] LABS: Troponin 5 6HR 6.78 ng/mL (0-10); Troponin 5 6HR Delta 0.78 ng/L (0-12)
--- NOTE | 2019-08-10 20:22 | ECG_ITS ---
Measurements Intervals [place] Rate: 77 P: 53 [place]: 147 QRS: 12 QRSD: 105 T: 52 QT: 415 QTc: 472 SINUS RHYTHM Compared to ECG 08/10/2019 15:20:46 No significant changes Electronically Signed On 08-11-2019 13:07:56 WORD PROCESSOR OPERATOR by Freida Sampson M.D. [id number]
[2019-08-10 20:55] LABS: NT Pro B Type Natriuretic Pept 79 pg/mL (0-125); Thyroid Stimulating Hormone 3.02 uIU/mL (0.27-4.20)
--- NOTE | 2019-08-10 20:59 | PC.PHAR ---
Vancomycin is dosed at 1500mg IVPB every 24 hours to produce a predicted trough level of 11.27 (populatiion based pharmacokinetic analysis). A trough level has been ordered from the lab to be collected before the fourth dose to confirm and adjust if needed.
[2019-08-10] MEDS: morphine 4 mg/mL SDV 1 mL 1 MG IVP (21:01)
[2019-08-10] MEDS: enoxaparin 40 mg/0.4 mL Syringe SUBCUT (21:01)
[2019-08-10] MEDS: ipratropium-albuterol 3 mL Neb INHALATION (22:06)
[2019-08-10] MEDS: sucralfate 1 gm Tablet PO (23:08)
[2019-08-10] MEDS: ondansetron 2 mg/ML SDV 2 mL 4 MG IVP (23:09)
[2019-08-10] MEDS: trazodone 100 mg Tablet 200 MG PO (23:09)
[2019-08-10 23:16] LABS: Procalcitonin 0.17 ng/mL (0-0.5)
[2019-08-11] VITALS (16 sets, daily range): BP systolic 93–116; BP diastolic 53–72; PULSE 76–88; RESP 16–20; TEMP 36.4–36.8; O2SAT 95–98
[2019-08-11] MEDS: morphine 4 mg/mL SDV 1 mL 1 MG IVP ×4 (01:08→19:50)
[2019-08-11] MEDS: ipratropium-albuterol 3 mL Neb INHALATION ×4 (02:47→20:38)
[2019-08-11] MEDS: sucralfate 1 gm Tablet PO ×4 (04:22→21:07)
[2019-08-11 06:19] LABS: Basophils % 0.6 %; Eosinophils # 0.2 10^3/uL (0.0-0.8); Eosinophils % 3.5 %; Hematocrit 38.7 % (37.0-47.0); Hemoglobin 12.1 g/dL (11.5-15.3); Lymphocytes # 0.9 10^3/uL (0.8-4.8); Lymphocytes % 12.5 %; Mean Corpuscular HGB Conc 31.3 g/dL (30.0-36.0); Mean Corpuscular Hemoglobin 29.5 pg (28.0-34.0); Mean Corpuscular Volume 94.4 fL (81-99); Mean Platelet Volume 10.3 fL (7.4-10.4); Monocytes # 0.6 10^3/uL (0.2-0.9); Monocytes % 9.2 %; Neutrophils % 73.9 %; Nucleated Red Blood Cells % 0 %; Platelet Count 238 10^3/cmm (130-400); Red Cell Distribution Width 15.2 % (12.1-15.1); White Blood Count 6.8 10^3/uL (4.0-10.0)
[2019-08-11 07:00] LABS: Chol HDL Ratio 3.87 mg/dL (0.0-4.40); Cholesterol 151 mg/dL (0-200); HDL Cholesterol 39 mg/dL (60-100); LDL Cholesterol Calculated 92 mg/dL (50-129); LDL HDL Ratio 2.36 RATIO (0.00-3.22); Triglycerides 98 mg/dL (0-150)
[2019-08-11 07:01] LABS: Anion Gap 17.3 (5-19); Blood Urea Nitrogen 12 mg/dL (6-20); Carbon Dioxide 22 mmol/L (22-29); Chloride 103 mmol/L (98-107); Glomerular Filtration Rate 75.6 mL/min (90-130); Glucose 129 mg/dL (65-115); Osmolality Calculated 286 mOsm/kg (285-295); Potassium 3.3 mmol/L (3.5-5.1); Sodium 139 mmol/L (136-145)
[2019-08-11] MEDS: budesonide 0.5 mg/2 mL Neb INHALATION ×2 (08:03→20:38)
[2019-08-11] MEDS: ARIPiprazole 10 mg Tablet 5 MG PO (09:22)
[2019-08-11] MEDS: lamoTRIgine 100 mg Tablet 200 MG PO (09:23)
[2019-08-11] MEDS: pantoprazole DR 40 mg Tablet PO (09:23)
[2019-08-11] MEDS: LORazepam 1 mg Tablet PO (09:27)
--- NOTE | 2019-08-11 10:46 | PM.PN ---
Subjective Subjective: Interval history: Admitted yesterday. No acute events overnight. Patient remains hemodynamically and stable from oxygen point of view. Patient has not had any more hemoptysis. Has had 2 episodes of central chest pain while sitting comfortably in bed. Vitals/I&O/Wt Last Vital Signs Temp 97.8 F 08/11/19 07:11 Pulse 83 08/11/19 08:05 Resp 16 08/11/19 08:05 BP 97/65 08/11/19 07:11 Pulse Ox 97 08/11/19 08:05 08/10/19 08/11/19 08/11/19 22:59 06:59 14:59 Intake Total 400 / 400 200 / 600 360 / 360 Output Total 450 / 450 Balance 400 / 400 -250 / 150 360 / 360 Weight last 48 hrs Weight 83.915 kg Physical Exam Narrative: EXAM NARRATIVE: General: No acute distress, AO x3 HEENT: PERRLA, pupils bilaterally equal and reactive Chest: Normal vesicular breath sounds, no added sounds, equal good air entry bilaterally CVS: S1-S2 regular, no murmurs, no tachycardia, no gallops, no rubs Abdomen: Soft, nontender, no organomegaly, bowel sounds present Neuro: No focal deficits, no facial deformity, AO x3, power 5/5 in all limbs Data : 08/11/19 05:51 08/11/19 05:51 Micro: Microbiology 08/10/19 15:23 Bacterial Antigens - Final Urine,Voided 08/10/19 15:23 Legionella Urinary Antigen - Final Urine,Voided 08/10/19 19:43 Blood Culture - Preliminary Blood SPECIMEN COLLECTED 08/10/19 19:50 Blood Culture - Preliminary Blood SPECIMEN COLLECTED A&P Assessment and plan (1) Chest pain: Status: Acute Code(s): R07.9 - Chest pain, unspecified (2) Pneumonia: Status: Acute Qualifiers: Laterality: bilateral Lung location: unspecified part of lung Pneumonia type: due to unspecified organism Qualified Code(s): J18.9 - Pneumonia, unspecified organism Code(s): J18.9 - Pneumonia, unspecified organism (3) Hemoptysis: Status: Acute Code(s): R04.2 - Hemoptysis (4) Hilar mass: Status: Acute Code(s): R91.8 - Other nonspecific abnormal finding of lung field (5) COPD (chronic obstructive pulmonary disease): Status: Acute Code(s): J44.9 - Chronic obstructive pulmonary disease, unspecified (6) GERD without esophagitis: Status: Acute Code(s): K21.9 - Gastro-esophageal reflux disease without esophagitis Additional A&P Information Chest pain: Most likely secondary to the hilar mass versus pneumonia. Patient has a significant smoking history. She had a similar presentation earlier this week at that ACS was ruled out. And pericarditis ruled out as well. Troponins negative this time as well. proBNP negative, liver panel normal. Chest pain could be because of pneumonia as well. On her last admission 6 days ago at that time SHANTE levels were normal, pro-Joe was negative, respiratory viral panel was negative, negative bacterial antigen panel. Procalcitonin, Legionella, bacterial antigen still negative. Sputum culture still not sent. Continue with vancomycin and imipenem for now. Day 2/ Hilar mass/hemoptysis: Most likely the cause of her chest pain. Patient was supposed to see Dr. Bray as an outpatient on Monday for probe possible bronchoscopy. Will consult Dr. Bray on Monday and see if patient can get bronchoscopy as an inpatient. Patient's hemoglobin seems to be stable as compared to last time. We will continue to watch. Tessalon Perles as needed. Budesonide twice daily, DuoNebs every 6 hours. Cannot rule out pulmonary hemorrhage. Have sent JOSE profile to the morning to rule out vasculitis. CHF: Patient was recently diagnosed of possible CHF at [facility]. No echo in the system. On review of her old documents from [facility] her EF was 50 to 55% with no diastolic dysfunction. Echocardiogram awaited. Euvolemic right now. Continue to hold off on fluids and Lasix. Encourage oral intake. Continue chronic anxiety medications like ambifly, venlafaxine, lamotrigine. Full code. Cardiac diet. Lovenox for DVT prophylaxis. Protonix for PUD prophylaxis Attestations Medical Necessity Statement*: Continued hospitalization for hemoptysis, hilar mass under evaluation Time Spent in Patient Care: Greater than 35 minutes Coding Level of Care Code Acute Art Framing Manager for [facility] Diagnoses Chest pain R07.9 Pneumonia J18.9 Laterality: bilateral Lung location: unspecified part of lung Pneumonia type: due to unspecified organism Hemoptysis R04.2 Hilar mass R91.8 COPD (chronic obstructive pulmonary disease) J44.9 GERD without esophagitis K21.9
--- NOTE | 2019-08-11 12:00 | PC.CHAP ---
Pastoral Care Encounter/Spiritual Assessment Type of Contact [] Declined data management engineer visit [] Patient/Family/Request visit [] Outpatient visit [] Follow-up visit [] Physician referral [] Code/Alert [] Routine visit [] Staff referral [] Actively dying [] Patient sleeping [] Family support [] [] Out of room [] Palliative care [] [] Receiving care in room [] Pre-surgical visit [] Trauma [] Long length of stay [] ICU visit [] Other: Relational/Emotional Strength [x] Patient feels connected with others/family/visitors/staff [] Distress [] Loneliness/isolation [] Abandonment Spirituality of Patient [x] Person of Kate [] Attends Confucianism of their Kate [x] Believes in Prayer [x] Reads Bible or Rastafari materials [] There are Spiritual issues to be addressed Fire Fighting Equipment Specialist Interventions [x] Prayer [x] Active listening [x] Non-anxious presence [x] Spiritual/emotional support [] Crisis/trauma care [] Spiritual counseling [] Bereavement support [] Provided bereavement packet [] Provided Bible/devotional materials [] Provided toy/stuffed animal, coloring book to patient or family member [] Provided Communion [] Anointing/[place] [] Salvation [x] Completed spiritual assessment [] Other: Impact on Illness or Injury [] Angry [] Fearful [] Anxious [] Often cries [] Exhaustion [] Unable to work [] Unable to attend scientology [] Unable to walk/stand [] Unable to read [] Unable to drive [] Unable to eat/drink [] Unable to sleep [] Unable to be with family [] Patient intubated [] Other: Summary Chaplains prayed with patient and staff member. Time spent with patient 15 minutes.
--- NOTE | 2019-08-11 14:35 | PC.NURSE ---
ATTEMPTED PICC line without success. MIDLINE placed at 20 cm RIGHT arm.
--- NOTE | 2019-08-11 19:15 | PC.NURSE ---
Introduction of staff and report received, aidet.
--- NOTE | 2019-08-11 21:05 | USCV_ITS ---
Latesha Wilhelm Age: 53 Gender: F : 1965 Exam Date: 08/11/2019 10:23 Ordering Phys: Tony Molina MD Technologist: Lior Bowen [place] [facility] [place]: CHF BP: 110 / 75 HR: 77 Rhythm: Sinus Technical Quality: Fair MEASUREMENTS (Male / Female) Normal Values 2D ECHO LV Diastolic Diameter PLAX 3.5 cm 4.2 - 5.9 / 3.9 - 5.3 cm LV Systolic Diameter PLAX 2.5 cm IVS Diastolic Thickness 1.0 cm 0.6 - 1.0 / 0.6 - 0.9 cm IVS Systolic Thickness 1.2 cm LVPW Diastolic Thickness 1.1 cm 0.6 - 1.0 / 0.6 - 0.9 cm LVPW Systolic Thickness 1.1 cm LVOT Diameter 2.0 cm LV Ejection Fraction 2D Teich 57.7 % LV Ejection Fraction MOD 2C 71.3 % LV Ejection Fraction 2C AL 71.1 % LA Diameter 3.6 cm LA Width 3.2 cm LA Height 4.2 cm RA Width 2.9 cm RA Height 4.0 cm Aorta at Sinotubular Diameter 2.5 cm M-MODE LV Diastolic Diameter MM 5.4 cm 4.2 - 5.9 / 3.9 - 5.3 cm LV Systolic Diameter MM 3.1 cm LV Ejection Fraction MM Teich 72.7 % IVS Diastolic Thickness MM 1.0 cm 0.6 - 1.0 / 0.6 - 0.9 cm IVS Systolic Thickness MM 1.5 cm LVPW Diastolic Thickness MM 0.9 cm 0.6 - 1.0 / 0.6 - 0.9 cm LVPW Systolic Thickness MM 1.2 cm RV Diastolic Diameter MM 1.5 cm Aortic Annulus Diameter 3.2 cm LA Ao Ratio MM 1.1 MV E Point Septal Separation 0.6 cm DOPPLER AV Peak Velocity 176.0 cm/s LVOT Peak Velocity 121.0 cm/s AV Area Cont Eq vti 2.2 cm squared AV Area Cont Eq pk 2.3 cm squared MV Area PHT 5.0 cm squared Mitral E to A Ratio 1.3 MV E' Velocity 88.0 cm/s Mitral E to LV E' Septal Ratio 9.3 TR Peak Velocity 248.0 cm/s TR Peak Gradient 24.7 mmHg TV Peak E Velocity 77.0 cm/s Right Atrial Pressure 3.0 mmHg Pulmonary Artery Systolic Pressu 27.6 mmHg PV Peak Velocity 120.0 cm/s FINDINGS Left Ventricle Normal left ventricular size, systolic function and wall thickness, with no regional wall motion abnormalities. Left ventricular ejection fraction is estimated at 70 %. Normal diastolic function. Right Ventricle Normal right ventricular size and systolic function. Right ventricular systolic pressure 15 mmHg. Right Atrium Normal right atrial size. Left Atrium Normal left atrial size. Mitral Valve Structurally normal mitral valve. No mitral valve stenosis. No mitral valve stenosis. Aortic Valve Structurally normal trileaflet aortic valve. No aortic valve stenosis. No aortic valve regurgitation. Tricuspid Valve Structurally normal tricuspid valve. No tricuspid valve stenosis. Trace tricuspid valve regurgitation. Pulmonic Valve Pulmonic valve not well visualized. No pulmonary valve stenosis. No pulmonary valve regurgitation. Pericardium No pericardial effusion. Aorta Normal sized aortic root. CONCLUSIONS 1. Normal left ventricular size, systolic function and wall thickness, with no regional wall motion abnormalities. Left ventricular ejection fraction is estimated at 70 %. Normal diastolic function. 2. Normal right ventricular size and systolic function. 3. No significant valvular abnormality. 4. Normal pulmonary artery pressure. 5. When compared to previous echocardiogram report dated 06/12/2014, there may not have been any significant change. Freida Sampson MD (Electronically Signed) Final Date: 11 August 2019 15:15 S
[2019-08-11] MEDS: trazodone 100 mg Tablet 200 MG PO (21:07)
[2019-08-11] MEDS: enoxaparin 40 mg/0.4 mL Syringe SUBCUT (21:07)
[2019-08-12] VITALS (17 sets, daily range): BP systolic 91–107; BP diastolic 60–68; PULSE 72–88; RESP 12–20; TEMP 36.4–36.8; O2SAT 92–99
[2019-08-12] MEDS: morphine 4 mg/mL SDV 1 mL 1 MG IVP ×3 (01:03→10:29)
[2019-08-12] MEDS: ipratropium-albuterol 3 mL Neb INHALATION ×4 (02:21→20:06)
[2019-08-12] MEDS: sucralfate 1 gm Tablet PO ×3 (03:58→21:36)
[2019-08-12 05:14] LABS: Basophils % 0.4 %; Eosinophils # 0.2 10^3/uL (0.0-0.8); Eosinophils % 2.5 %; Hematocrit 34.2 % (37.0-47.0); Lymphocytes # 1.3 10^3/uL (0.8-4.8); Lymphocytes % 13.4 %; Mean Corpuscular HGB Conc 32.2 g/dL (30.0-36.0); Mean Corpuscular Hemoglobin 28.6 pg (28.0-34.0); Mean Corpuscular Volume 89.1 fL (81-99); Mean Platelet Volume 10.4 fL (7.4-10.4); Monocytes # 1.1 10^3/uL (0.2-0.9); Monocytes % 12.1 %; Neutrophils # 6.7 10^3/uL (1.8-7.7); Neutrophils % 71.3 %; Nucleated Red Blood Cells % 0 %; Platelet Count 213 10^3/cmm (130-400); Red Blood Count 3.84 10^6/uL (4.1-5.3); Red Cell Distribution Width 14.7 % (12.1-15.1); White Blood Count 9.4 10^3/uL (4.0-10.0)
[2019-08-12 05:24] LABS: Alanine Aminotransferase 7 U/L (0-33); Albumin Level 3.1 g/dL (3.5-5.2); Alkaline Phosphatase 95 IU/L (35-105); Anion Gap 14.5 (5-19); Aspartate Amino Transferase 8 U/L (0-32); Blood Urea Nitrogen 12 mg/dL (6-20); Calcium 8.8 mg/dL (8.5-10.5); Carbon Dioxide 22 mmol/L (22-29); Chloride 109 mmol/L (98-107); Globulin 2.4 g/dL (1.3-4.6); Glomerular Filtration Rate 88.2 mL/min (90-130); Glucose 108 mg/dL (65-115); Potassium 3.5 mmol/L (3.5-5.1); Sodium 142 mmol/L (136-145); Total Bilirubin 0.2 mg/dL (0.15-1.2); Total Protein 5.5 g/dL (6.6-8.7)
[2019-08-12] MEDS: ondansetron 2 mg/ML SDV 2 mL 4 MG IVP (06:22)
[2019-08-12] MEDS: budesonide 0.5 mg/2 mL Neb INHALATION ×2 (08:44→20:06)
--- NOTE | 2019-08-12 12:19 | P.PN_ITS ---
Subjective Subjective: Interval history: No acute events overnight. Patient remains hemodynamically and stable from oxygen point of view. Patient has not had any more hemoptysis. No more chest pain. Yesterday PICC line was placed as patient had multiple IV placement attempts. Vitals/I&O/Wt Last Vital Signs Temp 98.2 F 08/12/19 10:52 Pulse 80 08/12/19 10:52 Resp 18 08/12/19 10:52 BP 92/60 08/12/19 10:52 Pulse Ox 99 08/12/19 10:52 08/11/19 08/12/19 08/12/19 22:59 06:59 14:59 Intake Total 440 / 1260 100 / 1360 Output Total 850 / 850 Balance 440 / 1260 -750 / 510 Weight last 48 hrs Weight 89.868 kg Weight 83.915 kg Physical Exam Narrative: EXAM NARRATIVE: General: No acute distress, AO x3 HEENT: PERRLA, pupils bilaterally equal and reactive Chest: Normal vesicular breath sounds, no added sounds, equal good air entry bilaterally CVS: S1-S2 regular, no murmurs, no tachycardia, no gallops, no rubs Abdomen: Soft, nontender, no organomegaly, bowel sounds present Neuro: No focal deficits, no facial deformity, AO x3, power 5/5 in all limbs Data : 08/12/19 04:33 08/12/19 04:33 Micro: Microbiology 08/11/19 14:40 Gram Stain - Final Sputum - Expectorated Sputum Sputum Culture - Preliminary 08/10/19 19:43 Blood Culture - Preliminary Blood NEGATIVE TO DATE 08/10/19 19:50 Blood Culture - Preliminary Blood NEGATIVE TO DATE 08/11/19 00:30 MRSA Culture - Final Nose A&P Assessment and plan (1) Chest pain: Status: Acute Code(s): R07.9 - Chest pain, unspecified (2) Pneumonia: Status: Acute Qualifiers: Laterality: bilateral Lung location: unspecified part of lung Pneumonia type: due to unspecified organism Qualified Code(s): J18.9 - Pneumo debra, unspecified organism Code(s): J18.9 - Pneumonia, unspecified organism (3) Hemoptysis: Status: Acute Code(s): R04.2 - Hemoptysis (4) Hilar mass: Status: Acute Code(s): R91.8 - Other nonspecific abnormal finding of lung field (5) COPD (chronic obstructive pulmonary disease): Status: Acute Code(s): J44.9 - Chronic obstructive pulmonary disease, unspecified (6) GERD without esophagitis: Status: Acute Code(s): K21.9 - Gastro-esophageal reflux disease without esophagitis Additional A&P Information Chest pain: Most likely secondary to the hilar mass versus pneumonia. Patient has a significant smoking history. She had a similar presentation earlier this week at that ACS was ruled out. And pericarditis ruled out as well. Troponins negative this time as well. proBNP negative, liver panel normal. Chest pain could be because of pneumonia as well. On her last admission 6 days ago at that time SHANTE levels were normal, pro-Joe was negative, respiratory viral panel was negative, negative bacterial antigen panel. Procalcitonin, Legionella, bacterial antigen still negative. Sputum culture still not sent. Continue with vancomycin and imipenem for now. Day 3/5 Hilar mass/hemoptysis: Most likely the cause of her chest pain. Patient was supposed to see Dr. Bray as an outpatient on Monday for probe possible bronchoscopy. Dr. Bray will see patient today and decide about bronchoscopy. Patient's hemoglobin seems to be stable as compared to last time. We will continue to watch. Tessalon Perles as needed. Budesonide twice daily, DuoNebs every 6 hours. Cannot rule out pulmonary hemorrhage. Have sent JOSE profile to the morning to rule out vasculitis. CHF: Patient was recently diagnosed of possible CHF at [facility]. No echo in the system. On review of her old documents from [facility] her EF was 50 to 55% with no diastolic dysfunction. Echocardiogram awaited. Euvolemic right now. Continue to hold off on fluids and Lasix. Encourage oral intake. Continue chronic anxiety medications like ambifly, venlafaxine, lamotrigine. Full code. Cardiac diet. Lovenox for DVT prophylaxis. 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
[2019-08-12] MEDS: acetaminophen 325 mg Tablet 650 MG PO (14:03)
[2019-08-12] MEDS: LORazepam 1 mg Tablet PO (14:03)
[2019-08-12] MEDS: sodium chloride 0.9% 1,000 ML 75 ML IV (14:06)
--- NOTE | 2019-08-12 19:15 | PC.NURSE ---
Introduction of staff and report received, aidet.
--- NOTE | 2019-08-12 19:23 | PM.CONSULT ---
Providers/Reason For Consult Consulting Physican/Specialty*: Pulmonary and critical care medicine Reason for Consult*: Hemoptysis with mediastinal and hilar lymphadenopathy Attending Physician: Tony Molina MD Primary Care Provider: AMANDEEP Barclay History of Present Illness History of Present Illness Latesha Wilhelm is a 53 year old female with an interesting medical history. The patient has history of schizoaffective disorder and borderline personality disorder. She has been hospitalized in the past with suicidal ideation. She also has anxiety disorder. The patient was admitted this time with hemoptysis. She was hospitalized recently in July with similar symptoms. Interestingly, her history of hemoptysis goes back to June of last year. The patient tells me at that time she was admitted to the hospital with double pneumonia as well as fluid around her heart. The history of hemoptysis is confusing as well. It appears that the patient had undergone extensive GI work-up for suspected hematemesis. However on questioning it appears that the patient is having hemoptysis. The patient tells me that this hemoptysis has been going on since June of this year however when I asked her if she had hemoptysis last year she said that it had started around March or April. It is unclear to me if the patient is giving me proper history or she is picking up clues from my line of questioning. She was hospitalized on August 02 with elevated white count, sputum production, hemoptysis and was treated with broad-spectrum antibiotic. At that time an extensive work-up including work-up for viral, fungal, bacterial etiology was all negative. The patient has never been febrile at the hospital or had any hemoptysis. This time, the patient tells me she was with her friend at [facility] and all of a sudden she was weak short of breath and needed to come to the hospital. Today the patient is absolutely comfortable without any shortness of breath, she did not cough once while I was with her. And she stated that she did not bring up any blood while coughing. The next history that the patient has is of anterior chest pain. The patient states that this chest pain has also been going on for about a year. The chest pain is anterior comes on when she is exerting herself and last for 3 to 4 days. On questioning she states that the pain is positional and its not tender but it hurts when she moves. Again, the patient has undergone extensive cardiac work-up and have all been negative. As I had mentioned in my history before, the patient was admitted to [facility] with double pneumonia according to the patient on July 23. The patient said that she was very sick however she was in the hospital for only 2 days. She was discharged home with prednisone and Levaquin. The patient does not think she had recovered. Interestingly again, she had a bladder procedure done on July 29 under general anesthesia and her respiratory status was optimal at that time. The patient has undergone [address] scans one on August 03 and 1 on this hospital admission. On the CT scan on August 03 the patient has bilateral diffuse groundglass opacities and hilar and mediastinal lymphadenopathy. In comparison to the CT scan obtained on the the CT scan on this hospital admission shows improvement in the groundglass opacity, there is persistence of some of the mediastinal and hilar lymph nodes. The 4R lymph node station which was very prominent on August 03 CT scan has shrunken now. Again, as mentioned in my history the patient currently does not have any fever no significant cough or sputum production, no hemoptysis the patient is ambulating without any difficulty whatsoever. Patient is an active smoker. Currently smoking half a pack a day. Review of Systems Narrative: General: No fevers chills night sweats Skin: No rash HEENT: No nasal congestion, rhinitis, sinusitis, sneezing, hoarseness of voice. There is no blurred vision, double vision, redness of the eye or visual loss. There is no oral ulcer, sore throat or dry mouth. Neck: There is no neck swelling, mass or swollen glands. Respiratory: Please see my HPI. Cardiovascular: No chest pain currently, no resting shortness of breath, orthopnea, proximal nocturnal dyspnea, palpitation or lower extremity edema. Gastrointestinal: No abdominal pain, nausea, vomiting, melena Musculoskeletal: No joint pain or swelling Neurological: Patient is awake alert and oriented x3, no paralysis, gross motor function is normal. Psychiatric: Positive for anxiety Meds/Allergies Home Medications and Allergies Home Medications Medication Instructions Recorded Confirmed Type albuterol sulfate 2.5 mg INHALATION TID PRN ml 06/13/19 08/10/19 History benzonatate 200 mg capsule 200 mg PO TID PRN 06/13/19 08/10/19 History bisacodyl 5 mg tablet,delayed 5 mg PO DAILY 06/13/19 08/10/19 History release fluticasone fur. 100 mcg-umeclid 1 inh INHALATION Q24H 06/13/19 08/10/19 History 62.5 mcg-vilant 25 mcg inhalat.powder polyethylene glycol 3350 17 17 gm PO DAILY PRN gm 06/13/19 08/10/19 History gram/dose oral powder valbenazine 40 mg capsule 40 mg PO DAILY 06/13/19 08/10/19 History trospium 20 mg tablet 20 mg PO BID 08/02/19 08/10/19 History lamotrigine 200 mg PO DAILY 08/10/19 08/10/19 History levofloxacin [Levaquin] 750 mg PO DAILY 08/10/19 08/10/19 History lorazepam 1 mg PO DAILY PRN 08/10/19 08/10/19 History Allergies Allergy/AdvReac Type Severity Reaction Status Date / Time Penicillins Allergy Severe ALGY-Anaphy Verified 08/02/19 10:47 laxis gabapentin [From Neurontin] Allergy Intermediate ADR-Halluci Verified 08/02/19 10:47 nating ketorolac [From Toradol] Allergy Intermediate ALGY-Rash Verified 08/02/19 10:47 lithium Allergy Intermediate ADR-Halluci Verified 08/02/19 10:47 nating influenza virus vac qs Allergy Mild Unknown Verified 08/02/19 10:47 -(4 yr up) cell derived [From Flucelvax Quad [id number] (PF)] adhesive tape Allergy Rash Verified 08/02/19 10:47 codeine Allergy GI Verified 08/02/19 10:47 quetiapine [From Seroquel] Allergy Unknown Verified 08/02/19 10:47 risperidone [From Risperdal] Allergy Unkown Verified 08/02/19 10:47 sulfamethoxazole Allergy Unknown Verified 08/02/19 10:47 [From Bactrim] Tetracyclines Allergy Unknown Verified 08/02/19 10:47 trimethoprim [From Bactrim] Allergy Unknown Verified 08/02/19 10:47 ziprasidone [From Geodon] Allergy Unknown Verified 08/02/19 10:47 Current Medications Current Medications Generic Name Dose Route Start Last Admin Trade Name Freq PRN Reason Stop Dose Admin Acetaminophen 650 mg 08/10/19 20:37 08/12/19 14:03 Tylenol PO 650 mg Q6H PRN Administration Mild/Mod Pain Or Temp >/= 101 Albuterol/Ipratropium 3 ml 08/10/19 21:00 08/12/19 14:18 Duoneb INHALATION 3 ml Q6H.RESPIRATORY VALENTINO Administration Aripiprazole 5 mg 08/11/19 09:00 08/12/19 09:34 Abilify PO Not Given DAILY VALENTINO Benzonatate 200 mg 08/12/19 15:00 08/12/19 18:52 Tessalon Pearls PO Not Given TID VALENTINO Enoxaparin Sodium 40 mg 08/10/19 20:37 08/11/19 21:07 Lovenox SUBCUT 40 mg Q24H VALENTINO Administration Vancomycin HCl 1,500 mg/ 250 mls @ 250 mls/hr 08/10/19 21:15 08/11/19 21:29 Sodium Chloride IV 250 mls/hr Q24H VALENTINO Administration Protocol As Directed Sodium Chloride 1,000 mls @ 75 mls/hr 08/12/19 11:30 08/12/19 14:06 Sodium Chloride 0.9% IV 08/12/19 21:29 75 mls/hr .[id number] VALENTINO Administration Imipenem/Cilastatin Sodium 500 100 mls @ 200 mls/hr 08/12/19 15:00 08/12/19 19:14 mg/ Sodium Chloride IV 200 mls/hr Q6H VALENTINO Administration Protocol Lamotrigine 200 mg 08/11/19 09:00 08/12/19 09:34 Lamictal PO Not Given DAILY VALENTINO Lorazepam 1 mg 08/10/19 20:47 08/12/19 14:03 Ativan PO 1 mg DAILY PRN Administration Anxiety Morphine Sulfate 1 mg 08/10/19 20:49 08/12/19 10:29 Morphine IVP 1 mg Q4H PRN Administration SEVERE PAIN Non-Formulary Medication 20 mg 08/11/19 09:00 08/12/19 19:08 Trospium PO Not Given BID [facility] Non-Formulary Medication 25 mg 08/11/19 09:00 08/12/19 19:09 Venlafaxine PO Not Given BID [facility] Ondansetron HCl 4 mg 08/10/19 20:37 08/12/19 06:22 Zofran IVP 4 mg Q6H PRN Administration NAUSEA AND VOMITING Pantoprazole Sodium 40 mg 08/11/19 09:00 08/12/19 09:34 Protonix PO Not Given DAILY [facility] Sucralfate 1 gm 08/10/19 21:00 08/12/19 19:14 Carafate PO 1 gm Q6H VALENTINO Administration Trazodone HCl 200 mg 08/10/19 21:00 08/11/19 21:07 Desyrel PO 200 mg BEDTIME VALENTINO Administration PFSH Acute PFSH: Medical History Bladder stone Chronic anxiety Chronic cystitis with hematuria Foreign body in bladder Hemoptysis Surgical History H/O: hysterectomy History of appendectomy History of breast biopsy History of ureter stent Hx of cholecystectomy Family History Other Asthma Cancer Diabetes Heart disease Social History Smoking and tobacco status: current every day smoker cigarettes Household members: spouse Housing: House Marital status: Number of children: 3 Current gender identity: Female Vitals/I&O/Wt Last Vital Signs Temp 98.1 F 08/12/19 15:21 Pulse 83 08/12/19 15:21 Resp 18 08/12/19 15:21 BP 91/60 08/12/19 15:21 Pulse Ox 96 08/12/19 15:21 08/12/19 08/12/19 08/12/19 06:59 14:59 22:59 Intake Total 100 / 1360 360 / 360 Output Total 850 / 850 Balance -750 / 510 360 / 360 Weight last 48 hrs Weight 198 lb 2 oz Physical Exam Narrative: EXAM NARRATIVE: General: Patient is awake alert and oriented, in no distress. HEENT: Pupil bilateral symmetric, light and accommodation reflex present, extraocular muscle movement intact, no deformity of the nose Neck: No JVD, no cervical or supraclavicular lymphadenopathy. Respiratory: Inspection: No visible deformity of the chest wall, no scar Palpation: Trachea is mildly deviated to the right, bilateral symmetric expansion, bilateral symmetric vocal fremitus present Percussion: Bilateral tympanic percussion note both anterior and posteriorly Auscultation: Bilateral clear to auscultation both anterior and posteriorly, no crackles wheezing or rhonchi Cardiovascular: Regular rate and rhythm, S1-S2 present, no murmur, no right ventricular heave, no peripheral edema. Abdomen: Soft, nontender, nondistended, positive bowel sound. No palpable organomegaly. Musculoskeletal: No obvious joint deformity Skin: No rash, no evidence of erythema nodosum or multiforme. Neuro: Mental status is normal, no gross cranial nerve deficit, normal motor and coordination. Data Micro: Micro: Microbiology 08/11/19 14:40 Gram Stain - Final Sputum - Expector ated Sputum Sputum Culture - P reliminary 08/10/19 19:43 Blood Culture - Pr eliminary Blood NEGATIVE TO YEMI E 08/10/19 19:50 Blood Culture - Pr eliminary Blood NEGATIVE TO YEMI E Other Data: Other data: I have reviewed the patient's previous data as well as data from this hospital admission. Radiologic data as described in detail in the history of present illness. Since 2016 the patient never had hemoglobin level less than 10. I am unsure about the severity of this hemoptysis/hematemesis that the patient has been complaining of. A&P Assessment and plan (1) Lung infiltrate on CT: The patient has evidence of bilateral lung infiltrate. The earliest objective evidence of that I have is on August 03. The patient underwent a bladder procedure requiring general anesthesia on July 29. It is not unusual for patients to have episode of aspiration after undergoing general anesthesia. And evidence of aspiration pneumonitis/pneumonia would explain the patient's radiographic appearance which is currently getting better. However, if the patient had this radiographic appearance on the CT scan or the chest x-ray prior to the procedure on July 29 that could easily present an episode of community-acquired pneumonia which is in the process of healing currently. I have no objective data to say that the patient is having active pneumonia currently. She is afebrile, not producing purulent sputum, not hypoxic and nontoxic and completely comfortable. The patient can be safely discharged home without any antibiotic. She has recently received multiple courses of antibiotics. Status: Acute Code(s): R91.8 - Other nonspecific abnormal finding of lung field (2) Hemoptysis: The history of hemoptysis is somewhat unclear. According to the patient she is been suffering from hemoptysis since June of last year. Given the absence of any endobronchial lesion on the CT scan I would assume this is secondary to chronic bronchitis. The patient also has bilateral infiltrate and pneumonia could also present with hemoptysis. Diffuse alveolar hemorrhage/pulmonary renal syndrome is of concern however this is going on for more than a year. The patient does not have any rheumatologic disease. And the infiltrate is getting better. Creatinine on admission was 1.1 and is currently 0.7 which is also unlikely to be pulmonary renal syndrome. Status: Acute Code(s): R04.2 - Hemoptysis (3) COPD (chronic obstructive pulmonary disease): The patient is an active smoker and has a history of COPD however I could not find any previous pulmonary function test. The patient has history of schizoaffective disorder and borderline personality disorder which most likely plays a significant component to her respiratory status worsening. Status: Acute Code(s): J44.9 - Chronic obstructive pulmonary disease, unspecified (4) Mediastinal lymphadenopathy: The mediastinal and hilar lymphadenopathy is nonspecific. This could be malignant however this could easily be infectious or inflammatory. Given the presence of bilateral groundglass opacities involving multiple lobes and lymphadenopathy, the malignancy that could present this way would be lymphoma. However the patient does not give any significant history of B symptoms. I will follow-up the patient next week in the office. Repeat a CT scan in 1 month. If this lymphadenopathy is still persistent or not in the process of regression the patient will need a bronchoscopy endobronchial sound guided transbronchial needle aspiration. 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
[2019-08-12] MEDS: enoxaparin 40 mg/0.4 mL Syringe SUBCUT (20:44)
[2019-08-12] MEDS: trazodone 100 mg Tablet 200 MG PO (21:36)
[2019-08-12] MEDS: benzonatate 100 mg Capsule 200 MG PO (21:37)
[2019-08-13] VITALS (9 sets, daily range): BP systolic 106–118; BP diastolic 72–77; PULSE 67–89; RESP 16–18; TEMP 36.6–37; O2SAT 90–99
[2019-08-13] MEDS: ipratropium-albuterol 3 mL Neb INHALATION ×2 (02:57→09:29)
[2019-08-13] MEDS: sucralfate 1 gm Tablet PO ×3 (03:17→14:27)
[2019-08-13 05:18] LABS: Basophils # 0.1 10^3/uL (0.0-0.1); Basophils % 0.7 %; Eosinophils # 0.3 10^3/uL (0.0-0.8); Eosinophils % 3.1 %; Hematocrit 35.5 % (37.0-47.0); Hemoglobin 11.3 g/dL (11.5-15.3); Lymphocytes # 1.1 10^3/uL (0.8-4.8); Lymphocytes % 13.7 %; Mean Corpuscular HGB Conc 31.8 g/dL (30.0-36.0); Mean Corpuscular Hemoglobin 28.7 pg (28.0-34.0); Mean Corpuscular Volume 90.1 fL (81-99); Monocytes # 0.8 10^3/uL (0.2-0.9); Monocytes % 9.4 %; Neutrophils # 6.1 10^3/uL (1.8-7.7); Neutrophils % 72.9 %; Nucleated Red Blood Cells % 0 %; Platelet Count 206 10^3/cmm (130-400); Red Blood Count 3.94 10^6/uL (4.1-5.3); Red Cell Distribution Width 14.7 % (12.1-15.1); White Blood Count 8.3 10^3/uL (4.0-10.0)
[2019-08-13 05:45] LABS: Alanine Aminotransferase 6 U/L (0-33); Albumin Level 2.9 g/dL (3.5-5.2); Alkaline Phosphatase 95 IU/L (35-105); Anion Gap 14.7 (5-19); Aspartate Amino Transferase 8 U/L (0-32); Blood Urea Nitrogen 10 mg/dL (6-20); Calcium 9.3 mg/dL (8.5-10.5); Carbon Dioxide 22 mmol/L (22-29); Chloride 108 mmol/L (98-107); Globulin 3.1 g/dL (1.3-4.6); Glomerular Filtration Rate 88.2 mL/min (90-130); Glucose 126 mg/dL (65-115); Potassium 3.7 mmol/L (3.5-5.1); Sodium 141 mmol/L (136-145); Total Bilirubin 0.2 mg/dL (0.15-1.2)
[2019-08-13] MEDS: pantoprazole DR 40 mg Tablet PO (09:10)
[2019-08-13] MEDS: ARIPiprazole 10 mg Tablet 5 MG PO (09:10)
[2019-08-13] MEDS: lamoTRIgine 100 mg Tablet 200 MG PO (09:10)
[2019-08-13] MEDS: benzonatate 100 mg Capsule 200 MG PO ×2 (09:10→14:27)
[2019-08-13] MEDS: LORazepam 1 mg Tablet PO (09:13)
[2019-08-13] MEDS: budesonide 0.5 mg/2 mL Neb INHALATION (09:29)
[2019-08-13 12:12] LABS: Anti-Double Strand DNA AB 2 IU/mL; Jo-1 Antibody <1.0 NEG AI (<1.0 NEG); SM/RNP Antibodies <1.0 NEG AI (<1.0 NEG); SS-B/LA IGG <1.0 NEG AI (<1.0 NEG); Scleroderma Ab(Scl-70) Ab <1.0 NEG AI (<1.0 NEG); Ss-A/Ro Igg <1.0 NEG AI (<1.0 NEG)
--- NOTE | 2019-08-13 13:58 | PC.SOCIAL ---
IM FOLLOW UP ATTEMPTED AND EXPLAINED. PATIENT INDICATES SHE IS DISCHARGING TODAY AND PLANS ON GOING HOME NO NEED TO GIVE INFORMATION
--- NOTE | 2019-08-13 20:23 | PM.DCS ---
Discharge Providers Date of Admission: 08/10/19 19:21 Date of Discharge: August 13, 2019 Attending Provider at Admission: Tony Molina MD Attending Provider at Discharge: Rubén Brush MD Primary Care Provider: AMANDEEP Barclay Diagnoses at Discharge Discharge Diagnosis (1) Lung infiltrate on CT: Status: Acute (2) Hemoptysis: Status: Acute (3) COPD (chronic obstructive pulmonary disease): Status: Acute (4) Mediastinal lymphadenopathy: Status: Acute Reason for Visit Reason for Visit: Reason For Visit: CP Hospital Course Discharge Summary: This is a 53-year-old female with a past medical history of COPD on 2 L oxygen, chronic migraines, anxiety and depression, recent history of multiple hilar adenopathy with associated hemoptysis currently undergoing outpatient evaluation by Dr. Bray, recently admitted to [facility] due to concerns for pneumonia on broad-spectrum antibiotics who presented to the emergency room for chest pain. For her chest pain, patient had a negative ACS work-up, echocardiogram showed ejection fraction of 70%, no regional wall motion abnormalities, was discharged home with close follow-up with her primary care provider as outpatient. Patient was advised if she were to have recurrent chest pain come back to emergency room. For hilar adenopathy and hemoptysis, hemoglobin was stable, patient was seen by Dr. Bray as outpatient, who advised of repeat CT scan in 1 month, with a follow-up with him in 1 month. For her concerns for recurrent pneumonia, repeat CT scan showed diffuse pulmonary infiltrates compatible with pneumonia, she received broad-spectrum antibiotics as inpatient, clinically improved, was discharged on 3 main remaining days of Levaquin. Physical Exam Const: COMMON NORMALS: no apparent distress and oriented x3 HENMT: COMMON NORMALS: normocephalic HEAD & SCALP: normocephalic Neck/C-Spine: COMMON NORMALS: no JVD Resp: COMMON NORMALS: normal respiratory effort, no retractions, no use of accessory muscles and clear to auscultation bilaterally AUSCULTATION: clear to auscultation bilaterally Cardio: COMMON NORMALS: no JVD, regular rate, regular rhythm, S1 normal heart sound and S2 normal heart sound RATE: regular rate RHYTHM: regular rhythm HEART SOUNDS: S1 normal and S2 normal GI: COMMON NORMALS: normal to inspection, nondistended, normoactive bowel sounds, soft to palpation, non-tender, no hepatosplenomegaly, no masses and no bruits PALPATION: Yes soft and Yes no hepatosplenomegaly Extremity: COMMON NORMALS: normal capillary refill, no clubbing, cyanosis or edema, no calf tenderness and no pedal edema Neuro: COMMON NORMALS: oriented x3 Psych: COMMON NORMALS: mental status grossly normal Discharge Data Data Completed and Pending: Completed Studies During Hospitalization Category Date Time Status CT angio chest PE protcl [id number] Stat Cat Scan 08/10/19 16:02 Completed XR chest 1V mary ble [id number] Stat Exams 08/10/19 13:08 Completed CV echo complete* [id number] Routine Ultrasound 08/11/19 21:05 Completed Pending at discharge Category Date Time Status Blood Culture Sta t Lab 08/10/19 19:43 Results Legionella Antibo dy Stat Lab 08/10/19 20:22 Results [facility] JOSE Profile R outine Lab 08/10/19 20:22 Results Labs from last 24 hours 08/13/19 08/13/19 08/11/19 04:54 04:54 05:51 WBC 8.3 RBC 3.94 L Hgb 11.3 L Hct 35.5 L MCV 90.1 MCH 28.7 MCHC 31.8 RDW 14.7 Plt Count 206 MPV 10.0 Neut % (Auto) 72.9 Lymph % (Auto) 13.7 Blanco % (Auto) 9.4 Eos % (Auto) 3.1 Baso % (Auto) 0.7 Neut # (Auto) 6.1 Lymph # (Auto) 1.1 [place] # (Auto) 0.8 Eos # (Auto) 0.3 Baso # (Auto) 0.1 Nucleated RBC % (a uto) 0 Nucleated RBCs # 0.0 Sodium 141 Potassium 3.7 Chloride 108 H Carbon Dioxide 22 Anion Gap 14.7 BUN 10 Creatinine 0.7 GFR Calculation 88.2 L Glucose 126 H Calcium 9.3 Total Bilirubin 0.2 AST 8 ALT 6 Alkaline Phosphata se 95 Total Protein 6.0 L Albumin 2.9 L Globulin 3.1 MACARIO-1 Antibody <1.0 neg SS-A/Ro IgG Antibo dy <1.0 neg SS-B/La IgG Antibo dy <1.0 neg Anti-nRNP/Sm IgG A b <1.0 neg Scl-70 Scleroderma Ab <1.0 neg Anti-ds DNA IgG Ab 2 Vitals: Last Vital Signs Temp 98.6 F 08/13/19 13:48 Pulse 67 08/13/19 13:48 Resp 18 08/13/19 13:48 BP 109/74 08/13/19 13:48 Pulse Ox 96 08/13/19 13:48 Discharge Plan Discharge Patient Disposition: Home, Self-Care Condition: Stable Prescriptions: New Levaquin 750 mg tablet 750 mg PO DAILY 3 Days Qty: 3 RF: 0 Continued hydroxyzine pamoate [Vistaril] 50 mg capsule 50 mg PO QID PRN (Reason: anxiety) Qty: 120 RF: 3 albuterol sulfate 2.5 mg /3 mL (0.083 %) solution for nebulization 2.5 mg INHALATION TID PRN (Reason: Cough) RF: 0 Trelegy Ellipta 100-62.5-25 mcg blister with device 1 inh INHALATION Q24H RF: 0 polyethylene glycol 3350 [Miralax] 17 gram/dose powder 17 gm PO DAILY PRN (Reason: constipation) RF: 0 benzonatate 200 mg capsule 200 mg PO TID PRN (Reason: Cough) RF: 0 bisacodyl [Women's Gentle Laxative(bisac)] 5 mg tablet,delayed release (DR/EC) 5 mg PO DAILY RF: 0 Ingrezza 40 mg capsule 40 mg PO DAILY RF: 0 trospium 20 mg tablet 20 mg PO BID RF: 0 pantoprazole [Protonix] 40 mg tablet,delayed release (DR/EC) 40 mg PO DAILY Qty: 30 RF: 5 trazodone 100 mg tablet 200 mg PO BEDTIME 30 Days Qty: 60 RF: 3 venlafaxine 50 mg tablet 25 mg PO BID Qty: 30 RF: 0 sucralfate [Carafate] 1 gram tablet 1 gm PO Q6H Qty: 120 RF: 0 aripiprazole [Abilify] 5 mg tablet 5 mg PO DAILY Qty: 30 RF: 1 lorazepam 1 mg Tablet 1 mg PO DAILY PRN (Reason: Anxiety) RF: 0 lamotrigine 200 mg tablet 200 mg PO DAILY RF: 0 Discontinued levofloxacin [Levaquin] 750 mg Tablet 750 mg PO DAILY RF: 0 Discharge Orders: Discharge Order (Routine); Ordered 08/13/19 Ordered By: Rubén Brush Referrals: Dara Tavera FNP [Primary Care Provider] - 1 week (please keep your appointment with Ayse on Monday.) Arina Bray MD [Physician] - 09/11/19 9:00 am Discharge Diet: Cardiac Discharge Activity: Resume usual activity Patient Instructions: Levofloxacin (By mouth), Pneumonia (GEN), Pneumonia Stoplight Activity Restrictions/Additional Instructions: -Please take antibiotic as prescribed -Follow-up with primary care in 1 week -Follow-up with Dr. Bray in [address] scan Discharge Date/Time: 08/13/19 14:32 Discharge Attestations Time Spent in Discharge Care*: less than 30 min Status at Discharge: Cognitive status at discharge: cognitively intact, Behavioral status at discharge: cooperative, Quality Metrics Clinical Quality Measures During this hospital stay, did patient experience: None Coding Level of Care Code Acute It Programmer for Chg Fwd Diagnoses Lung infiltrate on CT R91.8 Hemoptysis R04.2 COPD (chronic obstructive pulmonary disease) J44.9 Mediastinal lymphadenopathy R59.0
[2019-08-14 15:30] LABS: Legionella Antibody <1:256
== END 2019-08-13 14:32 | disposition home or self-care (01) | DRG 194 ==
LOC: ER 14:06 → MEDSURG 19:42
PROVIDERS: Emergency Medicine; Admitting Provider Student in an Organized Health Care Education/Training Program; Emergency Provider Family Medicine; Family Provider Registered Nurse; PCP Registered Nurse; Visit Provider Family Medicine
DX: J18.9 Pneumonia, unspecified organism (principal); R04.2 Hemoptysis; J44.9 Chronic obstructive pulmonary disease, unspecified; F17.210 Nicotine dependence, cigarettes, uncomplicated; K21.9 Gastro-esophageal reflux disease without esophagitis; R91.8 Other nonspecific abnormal finding of lung field; Z79.2 Long term (current) use of antibiotics; Z79.51 Long term (current) use of inhaled steroids
CPT/HCPCS: 12345; 36415; 36569; 71045; 71275; 80048; 80053; 80061; 81003; 83880; 84145; 84443; 84484; 85025; 86225; 86235; 86403; 86713; 87040; 87070; 87205; 87449; 87641; 87804; 93005; 93306; 94640; 94664; 96372; 96375; 99284; J0131; J0456; J0696; J0743; J1650; J2270; J2405; J3370; J7030; J7050; J7626; Q9967

== ENCOUNTER 2019-08-15 13:58 | Emergency (ER) | payer MEDICARE, MEDICAID, SELFPAY ==
[2019-08-15 13:58] VITALS: BP 89/64; PULSE 88; RESP 14; TEMP 36.8; O2SAT 94; BMI 30.7
--- NOTE | 2019-08-15 13:59 | ED_ITS ---
Entered by Uriel Gutiérrez, acting as scribe for Bryant Whitley DO HPI - Chest Pain General: Chief Complaint: Chest Pain Stated Complaint: CHEST PAIN Time Seen by Provider: 08/15/19 14:05 History of Present Illness: HPI narrative: 53 yo female presents with chest pain. Pt states that she was [facility]. pt states that a mass was found in her chest, she is having pain when she breathes and coughs. Pt states that she was seen by Dr. Bray on monday. Pt states that she is supposed to have a repeat CT scan in a month. MD complaint: chest pain Onset (ago): day(s) (2) Timing of current episode: constant Onset: during rest Severity: mild Quality: sharp Relieving factors: nothing Exacerbating factors: nothing Associated symptoms: Reports dyspnea and other (cough); Deny abdominal pain, fever(s), nausea, palpitations, syncope or vomiting Review of Systems Const: Denies: fever, chills, body aches, fatigue, malaise or night sweats Eyes: Denies: change in vision or blurry vision ENMT: Denies: throat pain, oral sores/lesions, dental pain, nasal discharge or nasal congestion Card: Denies: chest pain, palpitations, irregular heart rhythm, edema, syncope, shortness of breath on exertion, shortness of breath when lying down or leg pain with exertion Resp: Reports: shortness of breath, productive cough (brown sputum) and pain on inspiration GI: Denies: abdominal pain, nausea, vomiting, vomiting blood, coffee grounds in vomit, difficulty swallowing, heartburn/indigestion, diarrhea, constipation, cramping, blood in stool or black tarry stool : Denies: flank pain, painful urination, urinary frequency, urinary urgency, urinary incontinence or blood in urine Musc: Denies: neck pain, back pain, extremity pain, extremity swelling, joint pain or joint swelling Skin/Breast: Denies: rash, itching or redness Neuro: Denies: headache, numbness in extremities, weakness in extremities, changes in sensation, lack of coordination, difficulty walking, frequent falls, dizziness, vertigo or confusion Psych: Denies: anxiety, depression, loss of interest, visual hallucinations, auditory hallucinations, suicidal ideation or homicidal ideation Endo: Denies: excessive urination, excessive thirst, tired all the time or cold intolerance Wilbur/Lymph: Denies: easy bruising, easy bleeding, petechiae, enlarged lymph nodes or tender lymph nodes PFSH ED PFSH: Social History Smoking and tobacco status: current every day smoker cigarettes Household members: spouse Housing: House Marital status: Number of children: 3 Current gender identity: Female Physical Exam Const: COMMON NORMALS: average body habitus, oriented x3 and alert GENERAL APPEARANCE: cooperative, comfortable, well kempt and well developed NUTRITIONAL APPEARANCE: not obese ORIENTATION/CONSCIOUSNESS: Yes awake, Yes oriented to person and Yes oriented to place HENMT: COMMON NORMALS: normocephalic, head/scalp atraumatic, EAC's normal, TM's normal bilaterally, external nose normal, moist oral mucous membranes and oropharynx normal HEAD & SCALP: normocephalic and atraumatic NOSE: external nose normal EXTERNAL AUDITORY CANAL: EAC's normal TYMPANIC MEMBRANE: TM's normal bilaterally MOUTH: oral and palatal mucosa normal, lip normal and tongue normal THROAT: posterior oropharynx normal and tonsils normal Eye: COMMON NORMALS: PERRL, EOMs intact bilaterally, conjunctivae normal and no scleral icterus CONJUNCTIVA: Yes conjunctivae normal PUPIL: Yes PERRL Neck/C-Spine: COMMON NORMALS: full ROM, no lymphadenopathy, supple, no meningeal signs and thyroid normal THYROID: thyroid normal and asymmetrical Lymph: LYMPHATIC: no lymphadenopathy noted Resp: COMMON NORMALS: normal respiratory effort, no retractions, no use of accessory muscles and clear to auscultation bilaterally AUSCULTATION: clear to auscultation bilaterally Cardio: COMMON NORMALS: regular rate and regular rhythm RATE: regular rate RHYTHM: regular rhythm HEART SOUNDS: no murmurs GI: COMMON NORMALS: normal to inspection, nondistended, normoactive bowel sounds, soft to palpation and no hepatosplenomegaly PALPATION: Yes soft and Yes no hepatosplenomegaly : COMMON NORMALS: Yes no CVA tenderness BLADDER/KIDNEY EXAM: Yes no CVA tenderness Back/Pelvis: COMMON NORMALS: no CVA tenderness LUMBAR SPINE/LOWER BACK: Yes normal to inspection Extremity: COMMON NORMALS: no clubbing, cyanosis or edema, no calf tenderness and no pedal edema Neuro: COMMON NORMALS: oriented x3 SENSORIUM/ORIENTATION: Yes alert, Yes oriented to person and Yes oriented to place MENINGEAL SIGNS: Yes no meningeal signs Psych: APPEARANCE: Yes well kempt Skin: COMMON NORMALS: no rashes or lesions noted and skin turgor normal GENERAL SKIN EXAM: no rashes or lesions noted and turgor normal Course ED course: Work-up essentially negative. Vital signs are stable. Patient is improved so much we will go ahead and discharge her home continue follow-up as previously planned Vital Signs: Vital signs: Vital Signs Temperature 98.3 F 08/15/19 13:58 Pulse Rate 88 08/15/19 15:20 Respiratory Rate 16 08/15/19 15:20 Blood Pressure 105/72 08/15/19 15:20 Pulse Oximetry 94 08/15/19 15:20 MDM - Chest Pain Lab Data: Labs: Lab Results 08/15/19 08/15/19 Range/Units 13:20 13:20 WBC 14.8 H (4.0-10.0) 10^3/ uL RBC 4.38 (4.1-5.3) 10^6/u L Hgb 12.8 (11.5-15.3) g/dL Hct 38.9 (37.0-47.0) % MCV 88.8 (81-99) fL MCH 29.2 (28.0-34.0) pg MCHC 32.9 (30.0-36.0) g/dL RDW 14.8 (12.1-15.1) % Plt Count 237 (130-400) 10^3/c mm MPV 10.6 H (7.4-10.4) fL Neut % (Auto) 70.0 % Lymph % (Auto) 19.5 % [place] % (Auto) 7.0 % Eos % (Auto) 2.6 % Baso % (Auto) 0.5 % Neut # (Auto) 10.3 H (1.8-7.7) 10^3/u L Lymph # (Auto) 2.9 (0.8-4.8) 10^3/u L [place] # (Auto) 1.0 H (0.2-0.9) 10^3/u L Eos # (Auto) 0.4 (0.0-0.8) 10^3/u L Baso # (Auto) 0.1 (0.0-0.1) 10^3/u L Nucleated RBC % (a uto) 0 % Nucleated RBCs # 0.0 /100WBC Sodium 137 (136-145) mmol/L Potassium 4.2 (3.5-5.1) mmol/L Chloride 101 (98-107) mmol/L Carbon Dioxide 23 (22-29) mmol/L Anion Gap 17.2 (5-19) BUN 13 (6-20) mg/dL Creatinine 1.1 H (0.5-0.9) mg/dL GFR Calculation 52.4 L (90-130) mL/min Glucose 89 (65-115) mg/dL Calcium 9.9 (8.5-10.5) mg/dL Total Bilirubin 0.2 (0.15-1.2) mg/dL AST 13 (0-32) U/L ALT 12 (0-33) U/L Alkaline Phosphata se 123 H (35-105) IU/L Total Protein 6.9 (6.6-8.7) g/dL Albumin 3.9 (3.5-5.2) g/dL Globulin 3.0 (1.3-4.6) g/dL Discharge Plan Discharge Patient Disposition: Home, Self-Care Clinical Impression: Hilar mass Condition: Stable Prescriptions: No Action hydroxyzine pamoate [Vistaril] 50 mg capsule 50 mg PO QID PRN (Reason: anxiety) Qty: 120 RF: 3 albuterol sulfate 2.5 mg /3 mL (0.083 %) solution for nebulization 2.5 mg INHALATION TID PRN (Reason: Cough) RF: 0 Trelegy Ellipta 100-62.5-25 mcg blister with device 1 inh INHALATION Q24H RF: 0 polyethylene glycol 3350 [Miralax] 17 gram/dose powder 17 gm PO DAILY PRN (Reason: constipation) RF: 0 benzonatate 200 mg capsule 200 mg PO TID PRN (Reason: Cough) RF: 0 bisacodyl [Women's Gentle Laxative(bisac)] 5 mg tablet,delayed release (DR/EC) 5 mg PO DAILY RF: 0 Ingrezza 40 mg capsule 40 mg PO DAILY RF: 0 pantoprazole [Protonix] 40 mg tablet,delayed release (DR/EC) 40 mg PO DAILY Qty: 30 RF: 5 trazodone 100 mg tablet 200 mg PO BEDTIME 30 Days Qty: 60 RF: 3 venlafaxine 50 mg tablet 25 mg PO BID Qty: 30 RF: 0 sucralfate [Carafate] 1 gram tablet 1 gm PO Q6H Qty: 120 RF: 0 aripiprazole [Abilify] 5 mg tablet 5 mg PO DAILY Qty: 30 RF: 1 lamotrigine 200 mg tablet 200 mg PO DAILY RF: 0 levofloxacin [Levaquin] 750 mg Tablet 750 mg PO DAILY RF: 0 Referrals: Dara Tavera FNP [Primary Care Provider] - Discharge Diet: Usual diet Discharge Activity: Resume usual activity Activity Restrictions/Additional Instructions: Follow-up with Dr. Bray as planned. Use ibuprofen or Tylenol for chest wall pain. Discharge Date/Time: 08/15/19 15:20 Coding Level of Care Code ED Security Patrol Officer for Chg Fwd Exam Comprehensive The documentation recorded by the Brock corley Kialy, accurately reflects the service I personally performed and the decisions made by Gutierrez camacho Curtis L, DO Aug 15, 2019 13:58
--- NOTE | 2019-08-15 14:05 | ECG_ITS ---
Measurements Intervals [place] Rate: 81 P: 57 MN: 144 QRS: 60 QRSD: 98 T: 56 QT: 383 QTc: 445 SINUS RHYTHM POSSIBLE LEFT ATRIAL ENLARGEMENT [-0.1mV P WAVE IN V1/V2] Compared to ECG 08/10/2019 19:17:35 No significant changes Electronically Signed On 08-15-2019 21:20:29 OPTICAL LAB TECHNICIAN by Freida Sampson M.D. [email or web address]
--- NOTE | 2019-08-15 14:05 | XR_ITS ---
WS: [id number] Portable AP upright chest, 08/15/2019 Clinical Data: dyspnea/cough Comparison: Portable chest, 08/10/2019. Findings: No nodules, masses or effusions are seen. The heart is normal. Pulmonary vascularity is not remarkable. No pneumonia or pneumothorax is present. XR/XR chest 1V portable [id number] Impression: Negative chest.
[2019-08-15 14:08] VITALS: RESP 16
[2019-08-15 14:34] LABS: Basophils # 0.1 10^3/uL (0.0-0.1); Basophils % 0.5 %; Eosinophils # 0.4 10^3/uL (0.0-0.8); Eosinophils % 2.6 %; Hematocrit 38.9 % (37.0-47.0); Hemoglobin 12.8 g/dL (11.5-15.3); Lymphocytes # 2.9 10^3/uL (0.8-4.8); Lymphocytes % 19.5 %; Mean Corpuscular HGB Conc 32.9 g/dL (30.0-36.0); Mean Corpuscular Hemoglobin 29.2 pg (28.0-34.0); Mean Corpuscular Volume 88.8 fL (81-99); Mean Platelet Volume 10.6 fL (7.4-10.4); Neutrophils # 10.3 10^3/uL (1.8-7.7); Nucleated Red Blood Cells % 0 %; Platelet Count 237 10^3/cmm (130-400); Red Blood Count 4.38 10^6/uL (4.1-5.3); Red Cell Distribution Width 14.8 % (12.1-15.1); White Blood Count 14.8 10^3/uL (4.0-10.0)
[2019-08-15 14:53] LABS: Alanine Aminotransferase 12 U/L (0-33); Albumin Level 3.9 g/dL (3.5-5.2); Alkaline Phosphatase 123 IU/L (35-105); Anion Gap 17.2 (5-19); Aspartate Amino Transferase 13 U/L (0-32); Blood Urea Nitrogen 13 mg/dL (6-20); Calcium 9.9 mg/dL (8.5-10.5); Carbon Dioxide 23 mmol/L (22-29); Chloride 101 mmol/L (98-107); Glomerular Filtration Rate 52.4 mL/min (90-130); Glucose 89 mg/dL (65-115); Potassium 4.2 mmol/L (3.5-5.1); Sodium 137 mmol/L (136-145); Total Bilirubin 0.2 mg/dL (0.15-1.2); Total Protein 6.9 g/dL (6.6-8.7)
[2019-08-15 15:20] VITALS: BP 105/72; PULSE 88; RESP 16; O2SAT 94
== END 2019-08-15 15:20 | disposition home or self-care (01) ==
PROVIDERS: Emergency Provider Family Medicine; Family Provider Registered Nurse; PCP Registered Nurse
DX: R91.8 Other nonspecific abnormal finding of lung field (principal); F17.210 Nicotine dependence, cigarettes, uncomplicated
CPT/HCPCS: 71045; 80053; 85025; 93005; 99282; 99283

== ENCOUNTER → 2019-08-29 10:25 | Outpatient (BNVA) | payer MEDICARE, MEDICAID, SELFPAY | PROVIDERS: Family Provider Registered Nurse; PCP Registered Nurse; Visit Provider Registered Nurse | DX: B37.9 Candidiasis, unspecified (principal) | CPT/HCPCS: 88305 ==

== ENCOUNTER 2019-09-04 21:34 | Emergency (ER) | payer MEDICARE, MEDICAID, SELFPAY ==
[2019-09-04 21:40] VITALS: BMI 30.7
--- NOTE | 2019-09-04 21:47 | ED_ITS ---
Entered by Lesai Leach, acting as scribe for Sep 04, 2019 21:34 HPI - SOB/Dyspnea General: Chief Complaint: Shortness of Breath/Dyspnea Stated Complaint: Chest Pain/ SOB Time Seen by Provider: 09/04/19 21:46 Source: patient Mode of arrival: EMS Limitations: no limitations History of Present Illness: HPI Narrative: 53 yo f came to the er by [facility] for shortness of breath. Onset was today. Pt states that she seen this morning and that she is having some pain when she breaths in. Pt is scehdules to have nodules removed. Pt said that she was coughing up blood yesterday but not today. MD elicited complaint: shortness of breath and cough Onset (ago): day(s) (today) Context: recent illness Timing: intermittent Severity: mild Exacerbating factors: lying flat and exertion Relieving factors: nothing Associated symptoms: Reports cough; Deny abdominal pain, chest pain, fever(s), nausea, orthopnea or vomiting Treatment prior to arrival: none Related Data: Home oxygen amount: none Review of Systems General: Reports: other (negative unless marked) Const: Denies: fever, chills, body aches, change in appetite, fatigue or malaise Eyes: Denies: photophobia ENMT: Denies: enlarged tonsils Card: Denies: chest pain, edema, shortness of breath on exertion or shortness of breath when lying down Resp: Reports: shortness of breath and productive cough GI: Denies: abdominal pain, nausea, vomiting, vomiting blood, coffee grounds in vomit, diarrhea, constipation, bloating, blood in stool or black tarry stool : Denies: flank pain, difficulty urinating, painful urination, urinary frequency or urinary urgency Skin/Breast: Denies: rash or itching All/Imm: Denies: acute wheezing PFSH ED PFSH: Social History Smoking and tobacco status: current every day smoker cigarettes Packs smoked per day: 0.5 Years cigarettes smoked: 26 Quit status (tobacco): considering quitting Smoking risk assessment/counseling performed?: Yes Alcohol intake: never Lives independently: Yes Household members: spouse Housing: House Marital status: Number of children: 3 Current occupational status: disabled History of recent travel: No Current gender identity: Female Physical Exam Const: COMMON NORMALS: no apparent distress GENERAL APPEARANCE: cooperative and comfortable ORIENTATION/CONSCIOUSNESS: Yes awake, Yes oriented to person, Yes oriented to place and Yes oriented to time HENMT: COMMON NORMALS: normocephalic, head/scalp atraumatic, hearing grossly normal bilaterally, external ears normal, EAC's normal, TM's normal bilaterally, nasal mucous membranes and turbinates normal, moist oral mucous membranes and oropharynx normal HEAD & SCALP: normocephalic and atraumatic NOSE: nasal mucous membranes and turbinates normal EXTERNAL EAR: Yes external ears normal EXTERNAL AUDITORY CANAL: EAC's normal TYMPANIC MEMBRANE: TM's normal bilaterally Eye: COMMON NORMALS: PERRL, EOMs intact bilaterally, conjunctivae normal and no scleral icterus CONJUNCTIVA: Yes conjunctivae normal PUPIL: Yes PERRL Neck/C-Spine: COMMON NORMALS: full ROM, no lymphadenopathy, supple and no JVD Lymph: LYMPHATIC: no lymphadenopathy noted and no lymphedema noted Resp: COMMON NORMALS: normal respiratory effort, no retractions, no use of accessory muscles and clear to auscultation bilaterally AUSCULTATION: clear to auscultation bilaterally Cardio: COMMON NORMALS: no JVD, regular rate, regular rhythm and no murmurs RATE: regular rate RHYTHM: regular rhythm GI: COMMON NORMALS: soft to palpation and no hepatosplenomegaly AUSCULTATION: Yes normoactive bowel sounds PALPATION: Yes soft, No tender, No guarding and Yes no hepatosplenomegaly Extremity: COMMON NORMALS: normal to inspection, normal capillary refill, no clubbing, cyanosis or edema, no calf tenderness and no pedal edema Neuro: SENSORIUM/ORIENTATION: Yes oriented to person, Yes oriented to place and Yes oriented to time Skin: COMMON NORMALS: no rashes or lesions noted GENERAL SKIN EXAM: no rashes or lesions noted Course ED course: No acute findings on exam or imaging we will discharge her home follow-up with her scheduled appointment for this procedure. Vital Signs: Vital signs: Vital Signs Pulse Rate 94 09/05/19 00:32 Respiratory Rate 18 09/05/19 00:32 Blood Pressure 140/96 09/05/19 00:32 Pulse Oximetry 99 09/05/19 00:32 MDM - SOB/Dyspnea Imaging Data^: CXR: Radiologist's impression: XR chest 1V portable [id number] REASON FOR EXAM: dyspnea/cough FINDINGS: The heart and mediastinum were normal. The lung cortes are adequately aerated. No pneumonia, pleural effusion, pulmonary edema, or mass effect. Both kandice lungs are normal. The apices were normal. XR/XR chest 1V portable [id number] IMPRESSION: Negative chest for acute pathology. Dictated By:Devon Gudino DO Discharge Plan Discharge Patient Disposition: Home, Self-Care Clinical Impression: Chest pain, Chronic anxiety, COPD (chronic obstructive pulmonary disease), Hilar mass Condition: Stable Prescriptions: No Action albuterol sulfate 2.5 mg /3 mL (0.083 %) solution for nebulization 2.5 mg INHALATION TID PRN (Reason: Cough) Qty: 180 RF: 1 Trelegy Ellipta 100-62.5-25 mcg blister with device 1 inh INHALATION Q24H RF: 0 polyethylene glycol 3350 [Miralax] 17 gram/dose powder 17 gm PO DAILY PRN (Reason: constipation) RF: 0 Ingrezza 40 mg capsule 40 mg PO DAILY RF: 0 pantoprazole [Protonix] 40 mg tablet,delayed release (DR/EC) 40 mg PO DAILY Qty: 30 RF: 5 trazodone 100 mg tablet 200 mg PO BEDTIME 30 Days Qty: 60 RF: 3 hydroxyzine pamoate [Vistaril] 50 mg capsule 100 mg PO QID PRN (Reason: anxiety) RF: 0 venlafaxine 50 mg tablet 25 mg PO BID Qty: 30 RF: 0 sucralfate [Carafate] 1 gram tablet 1 gm PO Q6H Qty: 120 RF: 0 aripiprazole [Abilify] 5 mg tablet 5 mg PO DAILY Qty: 30 RF: 1 promethazine [Promethegan] 25 mg suppository 25 mg NV Q12H PRN (Reason: sedation) Qty: 12 RF: 0 lamotrigine 200 mg tablet 200 mg PO DAILY RF: 0 Discharge Orders: Discharge Order (Routine); Ordered 09/04/19 Ordered By: Bryant Whitley Referrals: Dara Tavera, WOVEN LABEL DESIGNER [Primary Care Provider] - Discharge Diet: Usual diet Discharge Activity: Resume usual activity Activity Restrictions/Additional Instructions: Follow-up with Dr. Bray in the testing he has scheduled as planned. Discharge Date/Time: 09/05/19 00:32 Coding Level of Care Code ED Vending Machine Filler for Chg Fwd Exam Comprehensive The documentation recorded by the Hany corley Stephanie Lyn, accurately reflects the service I personally performed and the decisions made by , Bryant Whitley, Sep 04, 2019 21:34
--- NOTE | 2019-09-04 21:59 | XR_ITS ---
WS: [id number] XR chest 1V portable [id number] REASON FOR EXAM: dyspnea/cough FINDINGS: The heart and mediastinum were normal. The lung cortes are adequately aerated. No pneumonia, pleural effusion, pulmonary edema, or mass effe ct. Both kandice lungs are normal. The apices were normal. XR/XR chest 1V portable [id number] IMPRESSION: Negative chest for acute pathology.
--- NOTE | 2019-09-04 22:44 | ECG_ITS ---
Measurements Intervals [place] Rate: 88 P: 54 MD: 144 QRS: 40 QRSD: 92 T: 53 QT: 373 QTc: 452 SINUS RHYTHM Compared to ECG 08/15/2019 14:09:38 No significant changes Electronically Signed On 09-05-2019 12:40:16 CDT by Rahel Loja [email or web address]
[2019-09-05 00:32] VITALS: BP 140/96; PULSE 94; RESP 18; O2SAT 99
--- NOTE | 2019-09-05 00:37 | PC.NURSE ---
Assessment reviewed and verified
--- NOTE | 2019-09-05 01:09 | PC.NURSE ---
Assessment reviewed and verified
== END 2019-09-05 00:32 | disposition home or self-care (01) ==
PROVIDERS: Emergency Provider Family Medicine; Family Provider Registered Nurse; PCP Registered Nurse
DX: R07.9 Chest pain, unspecified (principal); F41.9 Anxiety disorder, unspecified; J44.9 Chronic obstructive pulmonary disease, unspecified; R91.8 Other nonspecific abnormal finding of lung field; F17.210 Nicotine dependence, cigarettes, uncomplicated
CPT/HCPCS: 12345; 71045; 93005; 93010; 99282; 99283

== ENCOUNTER 2019-09-05 13:27 | Outpatient (CLI) | payer MEDICARE, MEDICAID, SELFPAY ==
--- NOTE | 2019-09-05 14:00 | CT_ITS ---
WS: [id number] CT scan of the chest without IV contrast, additional two-dimensional coronal and sagittal reconstruct ion was performed. 09/05/2019 Clinical Data: mediastinal lymphadenopathy Comparison: CTA of the chest, 08/10/2019. DLP: 926.[address] scans at [facility] use at least one of these dose optimization techniques: automat ed exposure control; mA and/or kV adjustment per patient size (includes targeted exams where dose is matched to clinical indication); or iterative reconstruction. Findings: No nodules, masses or effusions are seen. The heart size is normal with no pericardial effusion. The groundglass infiltrates have almost totally resolved. There may be a small residual in the anterior a spect of the lingula and anterior aspect of the right middle lobe. The pulmonary arterial system and thoracic aorta demonstrate no abnormalities or dilatations. The trachea bifurcates normally into the bronchi. There is no axillary adenopathy. Anterior and middle mediastinal adenopathy is noted but unc hanged. The upper abdomen shows only clips from a cholecystectomy. Minimal osteoarthritic changes of the thor acic vertebral bodies is seen. There is loss of vertebral body height between T12 and L1. CT/CT chest wo con [id number] Impression: 1. Groundglass infiltrates have almost completely resolved with only a small re sidual in the lingula and right middle lobe. 2. No acute cardiac disease is seen. 3. Mediastinal adenopathy unchanged.
== END 2019-09-05 13:28 | disposition home or self-care (01) ==
LOC: RADWPI 13:32
PROVIDERS: Family Provider Registered Nurse; PCP Registered Nurse; Visit Provider Internal Medicine Critical Care Medicine
DX: R59.0 Localized enlarged lymph nodes (principal); R91.8 Other nonspecific abnormal finding of lung field
CPT/HCPCS: 71250

== ENCOUNTER 2019-09-06 08:37 | Day surgery (SDC) | payer MEDICARE, MEDICAID, SELFPAY ==
[2019-09-05 11:47] VITALS: BMI 30.7
[2019-09-06 09:04] VITALS: BP 93/63; PULSE 103; RESP 18; TEMP 36.4; O2SAT 97
--- NOTE | 2019-09-06 09:34 | ANES.PREANE2 ---
Pre-Anesthetic Assessment Pre-Anesthetic Assessment: Height/Weight: Height 1.65 m Weight 83.915 kg Temp Pulse Resp BP Pulse Ox 97.5 F L 103 H 18 93/63 97 09/06/19 09:04 09/06/19 09:04 09/06/19 09:04 09/06/19 09:04 09/06/19 09:04 Preop Diagnosis: Hilar mass Proposed Procedure: Operation Date: 09/06/19 11:15 Proposed Procedures p Bronchoscopy(Not Applicable) - Arina Bray MD s Ebus(Not Applicable) - Arina Bray MD Last intake: Intake Last Liquid Date 09/05/19 Last Liquid Time 22:00 Last Solid Date 09/05/19 Last Solid Time 19:00 Social: Packs per day: 1/2 Pack years: 25 Exam: Pre-Anes Outpt Exam: alert, oriented x 3, clear to auscultation bilaterally and regular rate & rhythm Airway: Submandibular: WNL Cervical ROM: WNL MP: 1 Dentition: False Pulmonary: Pulmonary: COPD (home 02 x 4 months) GI: GI: GERD and PUD Comments: well controled with protonix and carafate Musc/skel: Musc/skel: Lower Back Pain Comments: intermittent right radiculopathy Neuropsych: Neuropsych: Depression Anesthetic Plan: ASA status: 3 Anesthesia: General PFSH Anesthesia PFSH: Medical History (Updated 09/05/19 @ 11:55 by Mindy Barry) Bladder stone Chronic anxiety Chronic cystitis with hematuria Foreign body in bladder Hemoptysis Surgical History H/O: hysterectomy History of appendectomy History of breast biopsy History of ureter stent Hx of cholecystectomy Social History Smoking and tobacco status: current every day smoker cigarettes Packs smoked per day: 0.5 Years cigarettes smoked: 26 Quit status (tobacco): considering quitting Smoking risk assessment/counseling performed?: Yes Alcohol intake: never Lives independently: Yes Household members: spouse Housing: House Marital status: Number of children: 3 Current occupational status: disabled History of recent travel: No Current gender identity: Female Data Anesthesia Cardiac Studies: No Data to Display
[2019-09-06] MEDS: sodium chloride 0.9% 1,000 ML 30 ML IV (09:58)
[2019-09-06] MEDS: midazolam 1 mg/mL INJ 2 mL 2 MG IVP (11:37)
--- NOTE | 2019-09-06 12:39 | W.PM.OPSUD ---
Surgery/Procedure H&P Update DATE OF PROCEDURE: September 06, 2019 DATE H&P PERFORMED: 09/04/19 H&P UPDATE INFORMATION: I have reviewed H&P completed within last 30 days, I have examined patient prior to procedure and No changes to prior documentation PREOP DIAGNOSIS: Mediastinal and hilar lymphadenopathy PLANNED PROCEDURE: Bronchoscopy with inspection of airway, possible endobronchial biopsies, endobronchial ultrasound-guided transbronchial needle aspiration, bronchoalveolar lavage and control of bleeding. Operation Date: 09/06/19 11:15 Proposed Procedures p Bronchoscopy(Not Applicable) - Arina Bray MD s Ebus(Not Applicable) - Arina Bray MD
[2019-09-06] MEDS: lidocaine 1% INJ 20 mL XX (13:01)
[2019-09-06] MEDS: EPINEPHrine 1 mg/mL INJ XX (13:10)
--- NOTE | 2019-09-06 14:01 | PM.OP ---
Operative Report Date of procedure: September 06, 2019 Pre-op Diagnosis: Mediastinal and hilar lymphadenopathy Post-op diagnosis: same Brief History: This is a 53-year-old female with a history of hemoptysis for more than a year and evidence of midsternal and hilar lymphadenopathy on CT scan coming in for bronchoscopy and endobronchial sound guided transbronchial needle aspiration of lymph nodes. Procedure: Name of the procedure: Bronchoscopy with inspection of the airway, bronchoalveolar lavage, endobronchial biopsies, endobronchial ultrasound-guided transbronchial needle aspiration of lymph nodes and control of bleeding. Indication: Mediastinal hilar lymphadenopathy in the setting of chronic hemoptysis Anesthesia: General anesthesia. Local anesthesia: The clovis in the right and left mainstem bronchi were anesthetized with 1% lidocaine, 3 mL. Description of the procedure: The procedure was explained to the patient and the consent was obtained. The patient was brought to the OR. The patient underwent endotracheal intubation for general anesthesia. Following induction of general anesthesia, the bronchoscope was advanced through the ET tube. The lower trachea appeared to normal, no endotracheal lesion was seen. The clovis was sharp. The clovis, the right and left mainstem bronchi are anesthetized with 1% lidocaine. In a systematic manner bilateral bronchial tree was then examined. The bronchoscope was advanced into the left mainstem bronchus. There was no evidence of bleeding. Areas of cobblestoning was noted. The left upper lobe, lingula and left lower lobe bronchi were examined up to the third subsegmental level and no abnormalities were identified. The cobblestoning was visible throughout the airway. There was no endobronchial lesion, active bleeding or mucous plug. The bronchoscope was then introduced into the right mainstem bronchus. The right upper lobe, right middle lobe and right lower lobe bronchi were examined up to the third subsegmental level and no abnormalities were identified. There was no significant erythema, active bleeding or endobronchial lesion however areas of cobblestoning was noted on the right side as well. Endobronchial biopsies were obtained from the left upper lobe secondary clovis. Bronchoalveolar lavage was performed from the medial segment of the right middle lobe. 60 mL of saline was instilled, fluid return was 20 mL. The fluid was cloudy. The endobronchial ultrasound was introduced through the ET tube. Right hilar lymphadenopathy was noted. There is no significant lymphadenopathy involving paratracheal, subcarinal or left hilar lymph nodes. Transbronchial needle aspiration was performed from 4R, 10 R and 11 R lymph node groups. Samples: 1. Bronchoalveolar lavage specimen was sent for cell count and differential, CD4 CD8 ratio, Gram stain and culture, fungal stain and culture, AFB stain and culture, histoplasma antigen. 2. The endobronchial biopsies are sent for histopathology. 3. The transbronchial needle aspiration of the aforementioned lymph node groups were sent for cytology. Complications: There was no immediate complications.
[2019-09-06 14:12] VITALS: BP 111/72; PULSE 99; RESP 18; TEMP 36.9; O2SAT 97
[2019-09-06 14:15] VITALS: BP 103/64; PULSE 109; RESP 25; O2SAT 95
[2019-09-06] MEDS: ondansetron 2 mg/ML SDV 2 mL 4 MG IVP (14:18)
[2019-09-06 14:20] VITALS: BP 134/74; PULSE 100; RESP 17; TEMP 36.9; O2SAT 98
--- NOTE | 2019-09-06 14:24 | SUR.OPER ---
ebus balloon removed intact
[2019-09-06 14:28] VITALS: BP 128/75; PULSE 74; RESP 18; TEMP 36.8; O2SAT 100
--- NOTE | 2019-09-06 14:42 | SUR.OPER ---
3 cytology specimens and 1 BAL given to Sylvia in lab.
[2019-09-06 16:24] LABS: Apprearance, Bronch Wash Cloudy (CLEAR)
[2019-09-06 16:25] LABS: Color, Bronc Wash Slight Pink
[2019-09-06 16:38] LABS: Bronch Source Right Middle Lobe; PATH Referral Yes
[2019-09-06 19:27] LABS: Total Cells Counted Bronch 200
== END 2019-09-06 14:55 | disposition home or self-care (01) ==
PROVIDERS: Family Provider Registered Nurse; PCP Registered Nurse; Visit Provider Internal Medicine Critical Care Medicine
PROC: 0BJ08ZZ Inspection of Tracheobronchial Tree, Via Natural or Artificial Opening Endoscopic (ICD-10-PCS; CPT 31622; principal; 2019-09-06 11:15)
PROC: BB4BZZZ Ultrasonography of Pleura (ICD-10-PCS; CPT 31624; 2019-09-06 11:15)
DX: R59.1 Generalized enlarged lymph nodes (principal); Z99.81 Dependence on supplemental oxygen; K21.9 Gastro-esophageal reflux disease without esophagitis; Z87.11 Personal history of peptic ulcer disease; F17.210 Nicotine dependence, cigarettes, uncomplicated; Z82.49 Family history of ischemic heart disease and other diseases of the circulatory system; Z83.3 Family history of diabetes mellitus
CPT/HCPCS: 31624; 31625; 31629; 12345; 80500; 86355; 86357; 86359; 86360; 87015; 87070; 87102; 87116; 87205; 87206; 87385; 87801; 88112; 88305; 89050; 96374; J0171; J1100; J2001; J2250; J2405; J2704; J2710; J3010; J3490; J7030

== ENCOUNTER 2019-09-07 14:06 | Observation (INO) | payer MEDICARE, MEDICAID, SELFPAY ==
[2019-09-07] VITALS (21 sets, daily range): BP systolic 90–131; BP diastolic 52–90; PULSE 70–103; RESP 16–22; TEMP 36.6–36.7; O2SAT 95–99
--- NOTE | 2019-09-07 14:08 | ED_ITS ---
Entered by Uriel Gutiérrez, acting as scribe for Bryant Whitley DO Documented by User: Bryant Whitley DO 09/11/19 16:15 HPI - General Adult General: Chief complaint: Shortness of Breath/Dyspnea Stated complaint: SOB; LYMPH NODES REMOVED Time Seen by Provider: 09/07/19 14:20 History of Present Illness: HPI narrative: 53 yo female presents with shortness of breath. Pt states that she had a lymph node removed yesterday. Pt states that she has had an increase in shortness of breath since last night. Pt states that she has a sore throat, and chest discomfort. Pt states that she hasn't been able to eat. MD complaint: shortness of breath. Onset (ago): hour(s) (1) Severity: mild Relieving factors: none Exacerbating factors: none Associated symptoms: Reports chest pain and dyspnea; Deny malaise, nausea, rash or vomiting Treatments prior to arrival: none Review of Systems Const: Denies: fever, chills, body aches, change in appetite, fatigue or malaise ENMT: Reports: throat pain; Denies: ear pain, nasal discharge or nasal congestion Card: Reports: chest pain and shortness of breath on exertion; Denies: edema or shortness of breath when lying down Resp: Reports: shortness of breath and non-productive cough GI: Denies: abdominal pain, nausea, vomiting, vomiting blood, coffee grounds in vomit, diarrhea, constipation, bloating, blood in stool or black tarry stool : Denies: flank pain, difficulty urinating, painful urination, urinary frequency or urinary urgency Skin/Breast: Denies: rash or itching PFSH ED PFSH: Medical History Bladder stone Chronic anxiety Chronic cystitis with hematuria Foreign body in bladder Hemoptysis Surgical History H/O: hysterectomy History of appendectomy History of breast biopsy History of ureter stent Hx of cholecystectomy Family History Other Asthma Cancer Diabetes Heart disease Social History Smoking and tobacco status: current every day smoker cigarettes Packs smoked per day: 0.5 Years cigarettes smoked: 26 Quit status (tobacco): considering quitting Smoking risk assessment/counseling performed?: Yes Alcohol intake: never Lives independently: Yes Household members: spouse Housing: House Marital status: Number of children: 3 Current occupational status: disabled History of recent travel: No Current gender identity: Female Physical Exam Const: COMMON NORMALS: no apparent distress GENERAL APPEARANCE: cooperative and comfortable ORIENTATION/CONSCIOUSNESS: Yes awake, Yes oriented to person, Yes oriented to place and Yes oriented to time HENMT: COMMON NORMALS: normocephalic, head/scalp atraumatic, hearing grossly normal bilaterally, external ears normal, EAC's normal, TM's normal bilaterally, nasal mucous membranes and turbinates normal, moist oral mucous membranes and oropharynx normal HEAD & SCALP: normocephalic and atraumatic NOSE: nasal mucous membranes and turbinates normal EXTERNAL EAR: Yes external ears normal EXTERNAL AUDITORY CANAL: EAC's normal TYMPANIC MEMBRANE: TM's normal bilaterally Eye: COMMON NORMALS: PERRL, EOMs intact bilaterally, conjunctivae normal and no scleral icterus CONJUNCTIVA: Yes conjunctivae normal PUPIL: Yes PERRL Neck/C-Spine: COMMON NORMALS: full ROM, no lymphadenopathy, supple and no JVD Lymph: LYMPHATIC: no lymphadenopathy noted and no lymphedema noted Resp: COMMON NORMALS: normal respiratory effort, no retractions, no use of accessory muscles and clear to auscultation bilaterally AUSCULTATION: clear to auscultation bilaterally Cardio: COMMON NORMALS: no JVD, regular rate, regular rhythm and no murmurs RATE: regular rate RHYTHM: regular rhythm GI: COMMON NORMALS: soft to palpation and no hepatosplenomegaly AUSCULTATION: Yes normoactive bowel sounds PALPATION: Yes soft, No tender, No guarding and Yes no hepatosplenomegaly Extremity: COMMON NORMALS: normal to inspection, normal capillary refill, no clubbing, cyanosis or edema, no calf tenderness and no pedal edema Neuro: SENSORIUM/ORIENTATION: Yes oriented to person, Yes oriented to place and Yes oriented to time Skin: COMMON NORMALS: no rashes or lesions noted GENERAL SKIN EXAM: no rashes or lesions noted Course Vital Signs: Vital signs: Vital Signs Temperature 98.3 F 09/09/19 11:35 Pulse Rate 81 09/09/19 11:35 Respiratory Rate 16 09/09/19 11:35 Blood Pressure 127/80 09/09/19 11:35 Pulse Oximetry 96 09/09/19 11:35 MDM - General Adult MDM Narrative: Medical decision making narrative: Care turned over to Dr. Martinez at change of shift Lab Data: Labs: Lab Results 09/07/19 09/07/19 09/07/19 Range/Units 14:38 14:38 19:00 WBC 23.3 H (4.0-10.0) 10^3/ uL RBC 4.16 (4.1-5.3) 10^6/u L Hgb 12.5 (11.5-15.3) g/dL Hct 38.8 (37.0-47.0) % MCV 93.3 (81-99) fL MCH 30.0 (28.0-34.0) pg MCHC 32.2 (30.0-36.0) g/dL RDW 15.4 H (12.1-15.1) % Plt Count 207 (130-400) 10^3/c mm MPV 10.1 (7.4-10.4) fL Neut % (Auto) 84.0 % Lymph % (Auto) 10.2 % [place] % (Auto) 5.0 % Eos % (Auto) 0.3 % Baso % (Auto) 0.2 % Neut # (Auto) 19.5 H (1.8-7.7) 10^3/u L Lymph # (Auto) 2.4 (0.8-4.8) 10^3/u L [place] # (Auto) 1.2 H (0.2-0.9) 10^3/u L Eos # (Auto) 0.1 (0.0-0.8) 10^3/u L Baso # (Auto) 0.1 (0.0-0.1) 10^3/u L Nucleated RBC % (a uto) 0 % Nucleated RBCs # 0.0 /100WBC Sodium 140 (136-145) mmol/L Potassium 3.8 (3.5-5.1) mmol/L Chloride 103 (98-107) mmol/L Carbon Dioxide 23 (22-29) mmol/L Anion Gap 17.8 (5-19) BUN 12 (6-20) mg/dL Creatinine 1.0 H (0.5-0.9) mg/dL GFR Calculation 58.5 L (90-130) mL/min Glucose 122 H (65-115) mg/dL Calculated Osmolal ity 287 (285-295) mOsm/k g Calcium 9.2 (8.5-10.5) mg/dL Total Bilirubin 0.2 (0.15-1.2) mg/dL AST 14 (0-32) U/L ALT 7 (0-33) U/L Alkaline Phosphata se 108 H (35-105) IU/L Troponin T Baselin e 6 (0-10) ng/mL Total Protein 6.3 L (6.6-8.7) g/dL Albumin 3.6 (3.5-5.2) g/dL Globulin 2.7 (1.3-4.6) g/dL Discharge Plan Discharge Patient Disposition: Placed in Observation Admit Provider: Jessy Gagnon Clinical Impression: Pneumomediastinum, Pneumonitis Condition: Stable Referrals: [facility] [Outside] Amor Medley MD [Physician] - 4-7 days (With upper GI study.) Dara Tavera FNP [Primary Care Provider] - 4-7 days Arina Bray MD [Physician] - (As scheduled) Discharge Diet: GI Soft Discharge Activity: Resume usual activity and Increase activity as tolerated Patient Instructions: Dysphagia, Chest Pain (DC), Soft Diet (GEN), Dyspnea (GEN) Additional Instructions: Please make sure to chose an appointment time for tomorrow for upper GI study. Centralized scheduling number is [phone]. Continue GI soft diet. Continue tylenol as needed, warm or cold compresses, icy hot, bengay or capsaicin as needed for chest wall pain. If you experience nonresolving chest pain, not reproducible on palpation, pain with swallowing, Discharge Date/Time: 09/07/19 21:00 Sign Out Sign Out Data: Patient Sign Out occurred on 09/07/19 at 18:42. Patient's care was discussed, and care was transferred from Bryant Whitley DO to Ann Morgan. Sign Out Comment: Signed out to Dr. Martinez at change of shift Last updated by Bryant Whitley DO at 09/07/19 18:09 Coding Level of Care Code ED Pharm Tech for Chg Fwd Exam Comprehensive Documented by User: Ann Morgan 09/07/19 19:20 HPI - General Adult General: Chief complaint: Shortness of Breath/Dyspnea Stated complaint: SOB; LYMPH NODES REMOVED Time Seen by Provider: 09/07/19 14:20 PFSH ED PFSH: Medical History Bladder stone Chronic anxiety Chronic cystitis with hematuria Foreign body in bladder Hemoptysis Surgical History H/O: hysterectomy History of appendectomy History of breast biopsy History of ureter stent Hx of cholecystectomy Family History Other Asthma Cancer Diabetes Heart disease Social History Smoking and tobacco status: current every day smoker cigarettes Packs smoked per day: 0.5 Years cigarettes smoked: 26 Quit status (tobacco): considering quitting Smoking risk assessment/counseling performed?: Yes Alcohol intake: never Lives independently: Yes Household members: spouse Housing: House Marital status: Number of children: 3 Current occupational status: disabled History of recent travel: No Current gender identity: Female Course Vital Signs: Vital signs: Vital Signs Temperature 98.3 F 09/09/19 11:35 Pulse Rate 81 09/09/19 11:35 Respiratory Rate 16 09/09/19 11:35 Blood Pressure 127/80 09/09/19 11:35 Pulse Oximetry 96 09/09/19 11:35 MDM - General Adult MDM Narrative: Medical decision making narrative: The case was reviewed with Dr. Bray and Dr. Gagnon. They will consult and admit respectively. The patient has been covered with Levaquin. I will add cardiac enzymes. The patient did not get a lactate but she does not meet sirs criteria for sepsis. Currently her pulse ox is maintaining in the mid 90s on 2 L nasal cannula oxygen. She is having pain but it is manageable. Lab Data: Attestation: I reviewed the patient's lab results. Labs: Lab Results 09/07/19 09/07/19 09/07/19 Range/Units 14:38 14:38 19:00 WBC 23.3 H (4.0-10.0) 10^3/ uL RBC 4.16 (4.1-5.3) 10^6/u L Hgb 12.5 (11.5-15.3) g/dL Hct 38.8 (37.0-47.0) % MCV 93.3 (81-99) fL MCH 30.0 (28.0-34.0) pg MCHC 32.2 (30.0-36.0) g/dL RDW 15.4 H (12.1-15.1) % Plt Count 207 (130-400) 10^3/c mm MPV 10.1 (7.4-10.4) fL Neut % (Auto) 84.0 % Lymph % (Auto) 10.2 % [place] % (Auto) 5.0 % Eos % (Auto) 0.3 % Baso % (Auto) 0.2 % Neut # (Auto) 19.5 H (1.8-7.7) 10^3/u L Lymph # (Auto) 2.4 (0.8-4.8) 10^3/u L [place] # (Auto) 1.2 H (0.2-0.9) 10^3/u L Eos # (Auto) 0.1 (0.0-0.8) 10^3/u L Baso # (Auto) 0.1 (0.0-0.1) 10^3/u L Nucleated RBC % (a uto) 0 % Nucleated RBCs # 0.0 /100WBC Sodium 140 (136-145) mmol/L Potassium 3.8 (3.5-5.1) mmol/L Chloride 103 (98-107) mmol/L Carbon Dioxide 23 (22-29) mmol/L Anion Gap 17.8 (5-19) BUN 12 (6-20) mg/dL Creatinine 1.0 H (0.5-0.9) mg/dL GFR Calculation 58.5 L (90-130) mL/min Glucose 122 H (65-115) mg/dL Calculated Osmolal ity 287 (285-295) mOsm/k g Calcium 9.2 (8.5-10.5) mg/dL Total Bilirubin 0.2 (0.15-1.2) mg/dL AST 14 (0-32) U/L ALT 7 (0-33) U/L Alkaline Phosphata se 108 H (35-105) IU/L Troponin T Baselin e 6 (0-10) ng/mL Total Protein 6.3 L (6.6-8.7) g/dL Albumin 3.6 (3.5-5.2) g/dL Globulin 2.7 (1.3-4.6) g/dL Imaging Data^: CT Chest: Radiologist's impression: [address] [address] [address] Scan Report Signed with Addenda Patient: Latesha Wilhelm Unit #: [id number] : [id number] Age/Sex: 53 / F ADM Date: 09/07/19 Loc: ER Room/Bed: Attending Dr: Ordering Provider/Ordering MD: Bryant Whitley DO Date of Service: 09/07/19 Procedure(s): CT angio chest PE protcl [id number] Accession Number(s): [id number] Report Number: [id number]/CT angio chest PE [facility] [id number] THIS REPORT CONTAINS FINDINGS THAT MAY BE CRITICAL TO PATIENT CARE. The findings were verbally communicated via telephone conference with Bryant Whitley at 6:28 PM CDT on 09/07/2019. The findings were acknowledged and understood. Radiation Dose CTDIVOL = (mGy): DLP = 568.41 (mGy-cm) Addendum Dictated By: Oniel Ferris Addendum Signed By: Oniel Ferris Signed Date/Time: 09/07/19 183 0 Addendum Cosigned By: PROCEDURE INFORMATION: Exam: CT Angiography Chest With Contrast Exam date and time: 09/07/2019 4:43 PM Age: 53 years old Clinical indication: Shortness of breath; Chest pain; Type not specified; Patient HX: C/O cp and SOB; Additional info: Chest pain/dyspnea TECHNIQUE: Imaging protocol: Computed tomographic angiography of the chest with intravenous contrast. 3D rendering: MIP and/or 3D reconstructed images were created by the technologist. Total DLP: 568.41 mGy-cm Radiation optimization: All CT scans at this facility use at least one of these dose optimization techniques: automated exposure control; mA and/or kV adjustment per patient size (includes targeted exams where dose is matched to clinical indication); or iterative reconstruction. Contrast material: OMNI 350; Contrast volume: 95 ml; Contrast route: 18G; COMPARISON: CT angio chest PE protcl [id number] 08/10/2019 6:19 PM FINDINGS: Pulmonary arteries: No visible evidence for pulmonary embolism. No visible pulmonary arterial thrombus. Aorta: Thoracic aorta is nonaneurysmal. Minimal arterial sclerotic disease. Cardiac structures in configuration unremarkable for age. Lungs: Bilateral patchy ground-glass interstitial lung disease consistent with interstitial pneumonitis. The pattern is both peripheral and central. Single small bleb left lower lobe. Very small sub pleural pulmonary nodule right upper lobe measuring only under 4 mm stable since 08/10/2019. This is visible on series 3, image 19. No other pulmonary nodule of 4 mm in size are larger identified. Pleural space: No associated pneumothorax. Heart: Cardiac structures in configuration are considered within normal limits for age. Mediastinum: Examination reveals pneumomediastinum. There is a moderate amount of mediastinal emphysema that it involves the superior, anterior, middle, and posterior mediastinal compartments. The free air tracks cephalad into the lower neck. Soft tissue emphysema is considered moderate volume. Etiology for the mediastinal and soft tissue emphysema remains indeterminate. The trachea appears intact without visible tear or rent. No visible esophageal tear or round. Evidence of antecedent granulomatous disease. Calcified mediastinal and hilar granulomas complexes. Gallbladder and bile ducts: Status post cholecystectomy. Spleen: Calcified granulomas of the spleen. Lymph nodes: Again note of prominent middle mediastinal and hilar lymph nodes that have been stable since 08/10/2019. Largest pretracheal node measures approximately 25 mm x 14 mm. Prominent aortopulmonic node measures approximately 22 mm x 12 mm. Prominent right hilar node 29 mm x 21 mm. Stability suggest benignancy. These are most likely reactive in nature or from the previous granulomatous disease. Bones/joints: Failure of segmentation/hemivertebra versus fusion T11 and T12. Age-appropriate degenerative disease. No visible osteolytic or osteoblastic destructive process. Intraosseous vertebral body cavernous hemangioma T6. Soft tissues: See Mediastinum finding. CT/CT angio chest PE protcl [id number] IMPRESSION: 1. Pneumomediastinum. 2. No visible evidence of pulmonary embolism. 3. Bilateral patchy interstitial pneumonitis. 4. Stable very small subpleural pulmonary nodule right upper lobe. For patients at low risk (minimal or absent history of smoking and of other known risk factors), no routine follow-up is indicated. For patients at high risk (history of smoking or of other known risk factors), consider optional CT at 12 months. (jaylen Stoll al., Fleischner Society, 2017). 5. Stable mediastinal and hilar lymph nodes since last evaluation. 6. Other nonurgent, nonemergent, chronic, and age related findings discussed in text above. Radiation Dose CTDIVOL = (mGy): DLP = 568.41 (mGy-cm) Dictated By: Oniel Ferris Signed By: Oniel Ferris Signed Date/Time: 09/07/191828 DD/ 27 Discharge Plan Discharge Patient Disposition: Placed in Observation Admit Provider: Jessy Gagnon Clinical Impression: Pneumomediastinum, Pneumonitis Condition: Stable Referrals: [facility] [Outside] Amor Medley MD [Physician] - 4-7 days (With upper GI study.) Dara Tavera FNP [Primary Care Provider] - 4-7 days Arina Bray MD [Physician] - (As scheduled) Discharge Diet: GI Soft Discharge Activity: Resume usual activity and Increase activity as tolerated Patient Instructions: Dysphagia, Chest Pain (DC), Soft Diet (GEN), Dyspnea (GEN) Additional Instructions: Please make sure to chose an appointment time for tomorrow for upper GI study. Centralized scheduling number is [phone]. Continue GI soft diet. Continue tylenol as needed, warm or cold compresses, icy hot, bengay or capsaicin as needed for chest wall pain. If you experience nonresolving chest pain, not reproducible on palpation, pain with swallowing, Discharge Date/Time: 09/07/19 21:00 Sign Out Sign Out Data: Patient Sign Out occurred on 09/07/19 at 18:42. Patient's care was discussed, and care was transferred from Bryant Whitley DO to Ann Morgan. Sign Out Comment: Signed out to Dr. Martinez at change of shift Last updated by Bryant Whitley DO at 09/07/19 18:09 Coding Level of Care Code ED Pharm Tech for Chg Fwd Exam Comprehensive The documentation recorded by the Brock corley Kialy, accurately reflects the service I personally performed and the decisions made by Gutierrez camacho Curtis L, DO Sep 07, 2019 14:06
--- NOTE | 2019-09-07 14:21 | XR_ITS ---
WS: [id number] XR chest 1V portable [id number] REASON FOR EXAM: dyspnea/cough FINDINGS: Examination: One view of the chest The heart mediastinum were normal. The lung cortes are well aerated. There is no pneumonia, pleural effusion, pulmonary edema, pneumotho rax, or mass effect. The hilum and apices are normal. XR/XR chest 1V portable [id number] IMPRESSION: Negative chest for active pathology.
--- NOTE | 2019-09-07 14:21 | ECG_ITS ---
Measurements Intervals [place] Rate: 86 P: 52 [place]: 131 QRS: 46 QRSD: 94 T: 44 QT: 390 QTc: 469 SINUS RHYTHM POSSIBLE LEFT ATRIAL ENLARGEMENT [-0.1mV P WAVE IN V1/V2] Compared to ECG 09/04/2019 23:56:52 No significant changes Electronically Signed On 09-08-2019 9:12:24 CDT by Rahel Loja [id number] f
[2019-09-07 14:46] LABS: Basophils # 0.1 10^3/uL (0.0-0.1); Basophils % 0.2 %; Eosinophils # 0.1 10^3/uL (0.0-0.8); Eosinophils % 0.3 %; Hematocrit 38.8 % (37.0-47.0); Hemoglobin 12.5 g/dL (11.5-15.3); Lymphocytes # 2.4 10^3/uL (0.8-4.8); Lymphocytes % 10.2 %; Mean Corpuscular HGB Conc 32.2 g/dL (30.0-36.0); Mean Corpuscular Volume 93.3 fL (81-99); Mean Platelet Volume 10.1 fL (7.4-10.4); Monocytes # 1.2 10^3/uL (0.2-0.9); Neutrophils # 19.5 10^3/uL (1.8-7.7); Nucleated Red Blood Cells % 0 %; Platelet Count 207 10^3/cmm (130-400); Red Blood Count 4.16 10^6/uL (4.1-5.3); Red Cell Distribution Width 15.4 % (12.1-15.1); White Blood Count 23.3 10^3/uL (4.0-10.0)
[2019-09-07 14:59] LABS: Alanine Aminotransferase 7 U/L (0-33); Albumin Level 3.6 g/dL (3.5-5.2); Alkaline Phosphatase 108 IU/L (35-105); Anion Gap 17.8 (5-19); Aspartate Amino Transferase 14 U/L (0-32); Blood Urea Nitrogen 12 mg/dL (6-20); Calcium 9.2 mg/dL (8.5-10.5); Carbon Dioxide 23 mmol/L (22-29); Chloride 103 mmol/L (98-107); Globulin 2.7 g/dL (1.3-4.6); Glomerular Filtration Rate 58.5 mL/min (90-130); Glucose 122 mg/dL (65-115); Osmolality Calculated 287 mOsm/kg (285-295); Potassium 3.8 mmol/L (3.5-5.1); Sodium 140 mmol/L (136-145); Total Bilirubin 0.2 mg/dL (0.15-1.2); Total Protein 6.3 g/dL (6.6-8.7)
--- NOTE | 2019-09-07 16:02 | CTR_ITS ---
PROCEDURE INFORMATION: Exam: CT Angiography Chest With Contrast Exam date and time: 09/07/2019 4:43 PM Age: 53 years old Clinical indication: Shortness of breath; Chest pain; Type not specified; Patient HX: C/O cp and SOB; Additional info: Chest pain/dyspnea TECHNIQUE: Imaging protocol: Computed tomographic angiography of the chest with intravenous contrast. 3D rendering: MIP and/or 3D reconstructed images were created by the technologist. Total DLP: 568.41 mGy-cm Radiation optimization: All CT scans at this facility use at least one of these dose optimization techniques: automated exposure control; mA and/or kV adjustment per patient size (includes targeted exams where dose is matched to clinical indication); or iterative reconstruction. Contrast material: OMNI 350; Contrast volume: 95 ml; Contrast route: 18G; COMPARISON: CT angio chest PE protcl [id number] 08/10/2019 6:19 PM FINDINGS: Pulmonary arteries: No visible evidence for pulmonary embolism. No visible pulmonary arterial thrombus. Aorta: Thoracic aorta is nonaneurysmal. Minimal arterial sclerotic disease. Cardiac structures in configuration unremarkable for age. Lungs: Bilateral patchy ground-glass interstitial lung disease consistent with interstitial pneumonitis. The pattern is both peripheral and central. Single small bleb left lower lobe. Very small sub pleural pulmonary nodule right upper lobe measuring only under 4 mm stable since 08/10/2019. This is visible on series 3, image 19. No other pulmonary nodule of 4 mm in size are larger identified. Pleural space: No associated pneumothorax. Heart: Cardiac structures in configuration are considered within normal limits for age. Mediastinum: Examination reveals pneumomediastinum. There is a moderate amount of mediastinal emphysema that it involves the superior, anterior, middle, and posterior mediastinal compartments. The free air tracks cephalad into the lower neck. Soft tissue emphysema is considered moderate volume. Etiology for the mediastinal and soft tissue emphysema remains indeterminate. The trachea appears intact without visible tear or rent. No visible esophageal tear or round. Evidence of antecedent granulomatous disease. Calcified mediastinal and hilar granulomas complexes. Gallbladder and bile ducts: Status post cholecystectomy. Spleen: Calcified granulomas of the spleen. Lymph nodes: Again note of prominent middle mediastinal and hilar lymph nodes that have been stable since 08/10/2019. Largest pretracheal node measures approximately 25 mm x 14 mm. Prominent aortopulmonic node measures approximately 22 mm x 12 mm. Prominent right hilar node 29 mm x 21 mm. Stability suggest benignancy. These are most likely reactive in nature or from the previous granulomatous disease. Bones/joints: Failure of segmentation/hemivertebra versus fusion T11 and T12. Age-appropriate degenerative disease. No visible osteolytic or osteoblastic destructive process. Intraosseous vertebral body cavernous hemangioma T6. Soft tissues: See Mediastinum finding. CT/CT angio chest PE protcl [id number] IMPRESSION: 1. Pneumomediastinum. 2. No visible evidence of pulmonary embolism. 3. Bilateral patchy interstitial pneumonitis. 4. Stable very small subpleural pulmonary nodule right upper lobe. For patients at low risk (minimal or absent history of smoking and of other known risk factors), no routine follow-up is indicated. For patients at high risk (history of smoking or of other known risk factors), consider optional CT at 12 months. (Jerman et al., Fleischner Society, 2017). 5. Stable mediastinal and hilar lymph nodes since last evaluation. 6. Other nonurgent, nonemergent, chronic, and age related findings discussed in text above. Radiation Dose CTDIVOL = (mGy): DLP = 568.41 (mGy-cm)
--- NOTE | 2019-09-07 16:36 | PC.NURSE ---
US guided IV placed in left upper arm. Pt to CT
--- NOTE | 2019-09-07 16:55 | PC.NURSE ---
Pt IV went bad during CT, pt brought back for second US IV. Nurse at bedside to attempt IV access.
--- NOTE | 2019-09-07 17:37 | PC.NURSE ---
Per CT, second US IV infiltrated when attempting to do CTA. Pt brought back to room for another IV. Nurse at bedside to attempt US IV insertion.
--- NOTE | 2019-09-07 17:52 | PC.NURSE ---
US guided IV placed to left upper arm above last IV site, checked with 3 saline flushes, good blood return. Pt to CT.
[2019-09-07] MEDS: iohexol 350 mg/mL 100 mL Btl IV (17:58)
[2019-09-07] MEDS: levofloxacin-dextrose 5 % 750 MG/150 ML PREMIX 150 MG IV (18:06)
[2019-09-07 19:28] LABS: Troponin(5th) Baseline 6 ng/mL (0-10)
--- NOTE | 2019-09-07 19:29 | PC.NURSE ---
Introduced self to patient and initiated vital signs. Patient presents A&O x 4. NAD, ABCs intact, MAEW and agreeable to treatment. Respirations are even and unlabored. Pt states that the chief complaint for the ER visit today is due to shortness of breath and complications with her lymph nodes which were recently removed. Pt states that shortness of breath is chronic and is on 2L of O2 at home. Pt denies any vision disturbances or lightheadedness. Bed left in lowest position in semi-fowlers with side rails up.Reassured patient of needs and will continue to monitor. Pt is admitted and awaiting room assignment.
--- NOTE | 2019-09-07 19:48 | PM.HP ---
Providers/Chief Complaint Primary Care Provider: AMANDEEP Barclay Chief Complaint: SOB; LYMPH NODES REMOVED History of Present Illness Latesha Wilhelm is a 53 year old female ,with past medical history of COPD on 2 L oxygen supplementation, chronic migraines, anxiety/depression, questionable history of hemoptysis, schizoaffective disorder because of chest pain, cough, malaise and has had extensive work-up. CT chest which was done prior admission had shown multiple hilar lymphadenopathy as high as 2.4 cm which was thought most likely due to malignancy. On her prior admissions her respiratory viral panel, histoplasma work-up, procalcitonin, negative coccidiomycosis PCR antigen, troponins were all negative with echocardiogram showing an EF of 70% with no regional wall motion abnormalities. Because of CT chest findings of hilar lymphadenopathy concerning for possible malignancy she has been following up with Dr. Bray as an outpatient and underwent EBUS on September 05 who presents to the ER today with chest pain with a reported hypoxia of 76% at home while in the ER she has been saturating more than 94% on 3 L nasal cannula (her baseline oxygen supplementation requirement has been 2 L). CXR was currently normal however follow up CTA chest showed Pneumomediastinum and otherwise stable chronic changes. Review of Systems General: Reports: 10 or more systems reviewed and unremarkable except in HPI and below Const: Denies: fever, chills or body aches Eyes: Denies: change in vision, blurry vision or photophobia ENMT: Reports: hoarseness; Denies: throat pain, enlarged tonsils, painful swallowing or nasal congestion Card: Denies: chest pain, palpitations, irregular heart rhythm, edema, swelling of feet/ankles, lightheadedness, pre-syncope, shortness of breath on exertion or shortness of breath when lying down Resp: Denies: shortness of breath, productive cough, non-productive cough, wheezing, stridor, pain on inspiration, change in phlegm color, coughing up blood or chest congestion GI: Denies: abdominal pain, nausea, vomiting, vomiting blood, coffee grounds in vomit, difficulty swallowing, heartburn/indigestion, diarrhea, constipation, cramping, change in stool character, blood in stool or black tarry stool : Denies: flank pain, difficulty urinating, painful urination, urinary frequency, urinary urgency, urinary hesitancy or blood in urine Musc: Denies: neck pain, back pain, extremity pain, joint swelling, joint warmth or deformity Neuro: Denies: headache, numbness in extremities, weakness in extremities, changes in sensation, difficulty walking, frequent falls, dizziness, vertigo, behavioral changes, slurred speech or seizure-like activity Psych: Denies: anxiety, depression, suicidal ideation or homicidal ideation Endo: Denies: excessive urination, excessive thirst, tired all the time, cold intolerance or hot flashes Wilbur/Lymph: Denies: easy bruising or easy bleeding Medications/Allergies Home Medications Medication Instructions Recorded Confirmed Last Taken Type Promethegan 25 mg VA Q12H PRN 09/07/19 09/07/19 09/05/19 10:00 History hydroxyzine pamoate 100 mg PO BEDTIME 09/07/19 09/07/19 09/06/19 20:00 History Allergies Allergy/AdvReac Type Severity Reaction Status Date / Time Penicillins Allergy Severe ALGY-Anaphy Verified 09/04/19 10:03 laxis sulfamethoxazole Allergy Severe ALGY-Hives Verified 09/04/19 10:03 [From Bactrim] Tetracyclines Allergy Severe ALGY-Hives Verified 09/04/19 10:03 gabapentin [From Neurontin] Allergy Intermediate ADR-Halluci Verified 09/04/19 10:03 nating ketorolac [From Toradol] Allergy Intermediate ALGY-Rash Verified 09/04/19 10:03 lithium Allergy Intermediate ADR-Halluci Verified 09/04/19 10:03 nating adhesive tape Allergy Rash Verified 09/04/19 10:03 codeine Allergy GI Verified 09/04/19 10:03 quetiapine [From Seroquel] Allergy Unknown Verified 09/04/19 10:03 trimethoprim [From Bactrim] Allergy ALGY-Hives Verified 09/04/19 10:03 ziprasidone [From Geodon] AdvReac Severe ADR-Halluci Verified 09/04/19 10:03 nating influenza virus vac qs AdvReac Mild ADR-Nausea Verified 09/04/19 10:03 -(4 yr up) cell derived [From Flucelvax Quad [id number] (PF)] risperidone [From Risperdal] AdvReac ADR-Halluci Verified 03/18/20 10:03 nating PFSH Acute PFSH: Medical History Bladder stone Chronic anxiety Chronic cystitis with hematuria Foreign body in bladder Hemoptysis Surgical History H/O: hysterectomy History of appendectomy History of breast biopsy History of ureter stent Hx of cholecystectomy Family History Other Asthma Cancer Diabetes Heart disease Social History Smoking and tobacco status: current every day smoker cigarettes Packs smoked per day: 0.5 Years cigarettes smoked: 26 Quit status (tobacco): considering quitting Smoking risk assessment/counseling performed?: Yes Alcohol intake: never Lives independently: Yes Household members: spouse Housing: House Marital status: Number of children: 3 Current occupational status: disabled History of recent travel: No Current gender identity: Female Vitals/I&O/Wt Last Vital Signs Temp 98.0 F 09/07/19 14:14 Pulse 76 09/07/19 18:35 Resp 18 09/07/19 18:35 BP 121/77 09/07/19 18:35 Pulse Ox 98 09/07/19 18:35 09/07/19 09/07/19 09/07/19 06:59 14:59 22:59 Intake Total 150 / 150 Balance 150 / 150 Physical Exam Narrative: EXAM NARRATIVE: General: No acute distress, AO x3, Anxious HEENT: PERRLA, pupils bilaterally equal and reactive Chest: Normal vesicular breath sounds, no added sounds, equal good air entry bilaterally CVS: S1-S2 regular, no murmurs, no tachycardia, no gallops, no rubs Abdomen: Soft, nontender, no organomegaly, bowel sounds present Neuro: No focal deficits, no facial deformity, AO x3, power 5/5 in all limbs Data : 09/07/19 14:38 09/07/19 14:38 Micro: Microbiology 09/07/19 16:28 Blood Culture - Preliminary Blood SPECIMEN COLLECTED 09/07/19 16:30 Blood Culture - Preliminary Blood SPECIMEN COLLECTED A&P Assessment and plan (1) Pneumomediastinum: Status: Acute Code(s): J98.2 - Interstitial emphysema (2) Pneumonitis: Status: Acute Code(s): J18.9 - Pneumonia, unspecified organism (3) Shortness of breath: Status: Acute Code(s): R06.02 - Shortness of breath (4) Mediastinal lymphadenopathy: Status: Acute Code(s): R59.0 - Localized enlarged lymph nodes Additional A&P Information Admit to med/surg for findings of pneumomediastinum on CT Cause unclear at this time, may be related to barotrauma vs recent procedure. Given chronicity of symptoms, it is hard to determine whetehr patient is experiencing ongoing chronic pain vs some worsening in the setting of this finding. Above discussed with Dr. Bray, recommended observation in the hospital overnight. No signs of tension pneumomediastinum at this time Continue supportive treatment with supplemetal 02 to keep saturation >92% prn morphine for pain control Full code Attestations Medical Necessity Statement*: anticipate <2midnight stay Coding Level of Care Code Acute Rubber Goods Tester for [facility] Fwd Diagnoses Pneumomediastinum J98.2 Pneumonitis J18.9 Shortness of breath R06.02 Mediastinal lymphadenopathy R59.0
[2019-09-07 21:22] LABS: Troponin 5 2HR Delta 0 ABS# (0-10)
[2019-09-07] MEDS: sodium chloride 0.9% 1,000 ML 75 ML IV (23:01)
[2019-09-07] MEDS: sucralfate 1 gm Tablet PO (23:50)
[2019-09-07] MEDS: ondansetron 2 mg/ML SDV 2 mL 4 MG IVP (23:51)
[2019-09-07] MEDS: enoxaparin 30 mg/0.3 mL Syringe SUBCUT (23:51)
[2019-09-07] MEDS: morphine 4 mg/mL SDV 1 mL 2 MG IVP (23:52)
[2019-09-08] VITALS (20 sets, daily range): BP systolic 101–121; BP diastolic 63–75; PULSE 72–86; RESP 16–22; TEMP 36.6–36.8; O2SAT 97–99
[2019-09-08 01:31] LABS: Troponin 5 6HR Delta 0 ng/L (0-12)
[2019-09-08] MEDS: morphine 4 mg/mL SDV 1 mL 2 MG IVP ×6 (03:11→23:47)
[2019-09-08] MEDS: sucralfate 1 gm Tablet PO ×4 (04:56→23:03)
[2019-09-08] MEDS: acetaminophen 325 mg Tablet 650 MG PO (04:58)
--- NOTE | 2019-09-08 06:00 | XR_ITS ---
WS: [id number] XR chest 1V portable [id number] REASON FOR EXAM: follow up pneumomediastinum FINDINGS: Interval change since previous exam of September 07, 2019 the interstitial markings have increa sed suggesting bronchitis changes. There is no definite pneumomediastinum seen. The heart mediastinum otherwise were normal. XR/XR chest 1V portable [id number] IMPRESSION: Increased markings suggesting chronic bronchitis. No definite mediastinum identified.
[2019-09-08 07:02] LABS: Basophils # 0.1 10^3/uL (0.0-0.1); Basophils % 0.7 %; Eosinophils # 0.3 10^3/uL (0.0-0.8); Eosinophils % 3.4 %; Hematocrit 38.7 % (37.0-47.0); Hemoglobin 11.9 g/dL (11.5-15.3); Lymphocytes # 2.8 10^3/uL (0.8-4.8); Lymphocytes % 28.8 %; Mean Corpuscular HGB Conc 30.7 g/dL (30.0-36.0); Mean Corpuscular Hemoglobin 28.7 pg (28.0-34.0); Mean Corpuscular Volume 93.3 fL (81-99); Mean Platelet Volume 10.3 fL (7.4-10.4); Monocytes # 1.1 10^3/uL (0.2-0.9); Monocytes % 11.2 %; Neutrophils # 5.4 10^3/uL (1.8-7.7); Neutrophils % 55.6 %; Nucleated Red Blood Cells % 0 %; Platelet Count 187 10^3/cmm (130-400); Red Blood Count 4.15 10^6/uL (4.1-5.3); Red Cell Distribution Width 15.6 % (12.1-15.1); White Blood Count 9.7 10^3/uL (4.0-10.0)
[2019-09-08 07:24] LABS: Blood Urea Nitrogen 10 mg/dL (6-20); Carbon Dioxide 25 mmol/L (22-29); Chloride 103 mmol/L (98-107); Glomerular Filtration Rate 75.6 mL/min (90-130); Glucose 87 mg/dL (65-115); Osmolality Calculated 277 mOsm/kg (285-295); Sodium 136 mmol/L (136-145)
[2019-09-08] MEDS: ARIPiprazole 10 mg Tablet 5 MG PO (07:47)
[2019-09-08] MEDS: hyDROXYzine 25 mg Capsule 50 MG PO ×3 (07:48→20:46)
[2019-09-08] MEDS: lamoTRIgine 100 mg Tablet 200 MG PO (07:48)
[2019-09-08] MEDS: pantoprazole DR 40 mg Tablet PO (07:48)
[2019-09-08] MEDS: ondansetron 2 mg/ML SDV 2 mL 4 MG IVP ×2 (09:35→18:47)
[2019-09-08] MEDS: sodium chloride 0.9% 1,000 ML 75 ML IV (09:36)
[2019-09-08] MEDS: nystatin powder 15 gm Btl 1 APPLIC TOPICAL ×2 (09:37→17:58)
--- NOTE | 2019-09-08 17:18 | P.PN_ITS ---
Subjective Subjective: Interval history: Reports she is still having chest pain with inspiration, central, substernal. Reports some difficulty with swallowing food, getting stuck and not going down well. Reports had an EGD about a year and a half ago. Reports sometime in the past was told perhaps may need some dilation of esophagus . Per review of most recent EGD by Dr. Medley was found to have gastritis. I see there are plans for upper GI study and small bowel follow- through on follow-up with him. She is rather anxious in bringing up all of her symptoms. Asks to be switched to GI soft diet. Vitals/I&O/Wt Last Vital Signs Temp 98.2 F 09/08/19 15:04 Pulse 86 09/08/19 15:04 Resp 22 H 09/08/19 15:47 BP 102/67 09/08/19 15:04 Pulse Ox 98 09/08/19 15:04 09/08/19 09/08/19 09/08/19 06:59 14:59 22:59 Intake Total 490 / 640 1873.75 / 1873.75 Output Total 200 / 200 Balance 290 / 440 1873.75 / 1873.75 Weight last 48 hrs Weight 86.727 kg Physical Exam Const: COMMON NORMALS: no apparent distress and oriented x3 GENERAL APPEARANCE: anxious HENMT: COMMON NORMALS: oropharynx normal Neck/C-Spine: COMMON NORMALS: no JVD Resp: COMMON NORMALS: normal respiratory effort EFFORT & INSPECTION: Yes audible wheezes Cardio: COMMON NORMALS: no JVD, regular rhythm, S1 normal heart sound, S2 normal heart sound and no murmurs RHYTHM: regular rhythm HEART SOUNDS: S1 normal and S2 normal GI: COMMON NORMALS: normal to inspection, nondistended, normoactive bowel sounds, soft to palpation and non-tender PALPATION: Yes soft Extremity: COMMON NORMALS: no joint enlargement and no pedal edema Neuro: COMMON NORMALS: oriented x3 and moves all extremities Skin: COMMON NORMALS: no rashes or lesions noted GENERAL SKIN EXAM: no rashes or lesions noted Data : 09/08/19 06:49 09/08/19 06:49 Micro: Microbiology 09/07/19 16:28 Blood Culture - Preliminary Blood NEGATIVE TO DATE 09/07/19 16:30 Blood Culture - Preliminary Blood NEGATIVE TO DATE A&P Assessment and plan (1) Pneumomediastinum: Her chest pain is chronic, and appears that the triggers seem to be varying. At this time she does states she is having some discomfort with breaths. Previously was reportedly due to movement. I am doubtful that pneumomediastinum is contributing to her symptoms. Her blood pressure slightly on the soft side so we will monitor her overnight. CTA with some patchy interstitial pneumonitis. This was present on prior work- up 08/10. Patchy groundglass opacities reported 08/03. Status: Acute Code(s): J98.2 - Interstitial emphysema (2) Pneumonitis: Seen on CT.perhaps secondary to some degree of aspiration during her recent procedures. At this time she is afebrile, without leukocytosis, and suspicion for active pneumonia is low. Bronchial washings culture 09/05 with scant mixed growth. Status: Acute Code(s): J18.9 - Pneumonia, unspecified organism (3) Shortness of breath: Status: Acute Code(s): R06.02 - Shortness of breath (4) Mediastinal lymphadenopathy: Pending results from pathology from EBUS biopsy 09/05. Status: Acute Code(s): R59.0 - Localized enlarged lymph nodes (5) Dysphagia: Reports food sticking in her swallowing tube. Currently not having any hematemesis. So far taken felt there was nothing seen on EGD like web or ring that may explain her symptoms, although she says somebody somewhere in the past had told her that her esophagus may need to be slightly dilated . I did not see anything I did reported in Dr. Medley's note. They have plans to follow-up with upper GI study, and possibly additional investigation de pending on the findings. Would continue follow up with him in office. Status: Acute Code(s): R13.10 - Dysphagia, unspecified (6) COPD (chronic obstructive pulmonary disease): With perhaps a minimal COPD exacerbation with some wheezing on exam. Continue breathing treatments. Status: Acute Code(s): J44.9 - Chronic obstructive pulmonary disease, unspecified Additional A&P Information Small subpleural pulmonary nodule right upper lobe. Attestations Medical Necessity Statement*: Continue observation due to pneumomediastinum, monitor blood pressure, oxygenation, if remains stable, likely should be able to return home with continued outpatient follow-up. Coding Level of Care Code Acute Security Control Assessor for [facility] Fwd Diagnoses Pneumomediastinum J98.2 Pneumonitis J18.9 Shortness of breath R06.02 Mediastinal lymphadenopathy R59.0 Dysphagia R13.10 COPD (chronic obstructive pulmonary disease) J44.9
[2019-09-08] MEDS: trazodone 100 mg Tablet 200 MG PO (20:45)
[2019-09-08] MEDS: enoxaparin 30 mg/0.3 mL Syringe SUBCUT (23:03)
[2019-09-09] VITALS (7 sets, daily range): BP systolic 120–127; BP diastolic 80–85; PULSE 71–81; RESP 16–20; TEMP 36.3–36.8; O2SAT 96–100
[2019-09-09] MEDS: acetaminophen 325 mg Tablet 650 MG PO ×2 (02:35→11:59)
[2019-09-09] MEDS: sodium chloride 0.9% 1,000 ML 75 ML IV (02:36)
[2019-09-09] MEDS: morphine 4 mg/mL SDV 1 mL 2 MG IVP ×2 (04:26→08:21)
[2019-09-09] MEDS: sucralfate 1 gm Tablet PO ×2 (04:26→11:56)
[2019-09-09 05:36] LABS: Basophils # 0.1 10^3/uL (0.0-0.1); Basophils % 0.7 %; Eosinophils # 0.4 10^3/uL (0.0-0.8); Eosinophils % 4.5 %; Hematocrit 41.2 % (37.0-47.0); Hemoglobin 12.7 g/dL (11.5-15.3); Lymphocytes # 2.5 10^3/uL (0.8-4.8); Lymphocytes % 29.8 %; Mean Corpuscular HGB Conc 30.8 g/dL (30.0-36.0); Mean Corpuscular Volume 94.1 fL (81-99); Monocytes # 0.9 10^3/uL (0.2-0.9); Monocytes % 10.6 %; Neutrophils # 4.6 10^3/uL (1.8-7.7); Neutrophils % 53.9 %; Nucleated Red Blood Cells % 0 %; Platelet Count 190 10^3/cmm (130-400); Red Blood Count 4.38 10^6/uL (4.1-5.3); White Blood Count 8.4 10^3/uL (4.0-10.0)
[2019-09-09] MEDS: ondansetron 2 mg/ML SDV 2 mL 4 MG IVP (06:49)
[2019-09-09] MEDS: ARIPiprazole 10 mg Tablet 5 MG PO (08:14)
[2019-09-09] MEDS: lamoTRIgine 100 mg Tablet 200 MG PO (08:15)
[2019-09-09] MEDS: pantoprazole DR 40 mg Tablet PO (08:15)
[2019-09-09] MEDS: hyDROXYzine 25 mg Capsule 50 MG PO (08:16)
[2019-09-09] MEDS: nystatin powder 15 gm Btl 1 APPLIC TOPICAL (08:17)
--- NOTE | 2019-09-09 14:13 | PM.PN ---
Subjective Subjective: Interval history: Mrs. Wilhelm was seen and examined. She presented to the hospital on Monday with chest pain. She underwent bronchoscopy and endobronchial sound guided transbronchial needle aspiration of lymph nodes on Monday. On the initial chest x-ray there was no significant abnormality. CT angiogram obtained revealed groundglass opacities in multiple lung lobes as well as small pneumomediastinum. The groundglass opacity could have represented pneumonitis secondary to aspiration. Her white count is back to normal now. There is no evidence of an ongoing infection. This afternoon she is doing very well. Not complaining of any significant chest pain. The patient was completely comfortable in bed. Medications: Reviewed: Yes Vitals/I&O/Wt Last Vital Signs Temp 98.3 F 09/09/19 11:35 Pulse 81 09/09/19 11:35 Resp 16 09/09/19 11:35 BP 127/80 09/09/19 11:35 Pulse Ox 96 09/09/19 11:35 09/08/19 09/09/19 09/09/19 22:59 06:59 14:59 Intake Total 1580 / 3453.75 240 / 240 Output Total 900 / 900 900 / 900 Balance 1580 / 3453.75 -900 / 2553.75 -660 / -660 Weight last 48 hrs Weight 191 lb 3.2 oz Physical Exam Narrative: EXAM NARRATIVE: General: Patient is awake alert and oriented, in no distress. Neck: No JVD, no cervical or supraclavicular lymphadenopathy. Respiratory: Inspection: No visible deformity of the chest wall Palpation: Trachea is mildly deviated to the right, bilateral symmetric expansion, bilateral symmetric vocal fremitus present Percussion: Bilateral tympanic percussion note both anterior and posteriorly Auscultation: No crackles, diffuse wheezing and rhonchi Cardiovascular: Regular rate and rhythm, S1-S2 present, no murmur, no right ventricular heave, no peripheral edema. Abdomen: Soft, nontender, nondistended, positive bowel sound Skin: No rash, no evidence of erythema nodosum or multiforme. Neuro: Mental status is normal, no gross cranial nerve deficit, normal motor and coordination. Data : 09/09/19 05:08 09/08/19 06:49 Micro: Microbiology 09/07/19 16:28 Blood Culture - Preliminary Blood NEGATIVE TO DATE 09/07/19 16:30 Blood Culture - Preliminary Blood NEGATIVE TO DATE Other data: I have reviewed the patient's laboratory, radiologic and microbiologic data. There is no evidence of mediastinitis. The bronchoalveolar lavage is not suggestive of an infection. A&P Assessment and plan (1) Mediastinal lymphadenopathy: The patient underwent endobronchial sound guided transbronchial needle aspiration of lymph nodes. Currently avoiding on the cytology results. Status: Acute Code(s): R59.0 - Localized enlarged lymph nodes (2) COPD (chronic obstructive pulmonary disease): The patient has a previous diagnosis of COPD however there is no previous pulmonary function test. Her CT scan did not reveal significant emphysema. The patient is a current smoker. She will follow-up with me as outpatient for the management of the COPD. Status: Acute Code(s): J44.9 - Chronic obstructive pulmonary disease, unspecified (3) Pneumomediastinum: The etiology for the pneumomediastinum is unclear. The patient did receive positive pressure ventilation during the bronchoscopy which can certainly cause pneumomediastinum by Allen effect. There are very few cases of pneumomediastinum secondary to fine-needle aspiration from endobronchial ultrasound. However, this pneumomediastinum is not clinically significant. This is not secondary to mediastinitis. The patient is in stable condition from pulmonary point of view to be discharged home. She can follow-up with me as scheduled. Status: Acute Code(s): J98.2 - Interstitial emphysema Attestations Medical Necessity Statement*: Will defer to the primary team Coding Level of Care Code Acute Rental Clerk for [facility] Fwd Diagnoses Mediastinal lymphadenopathy R59.0 COPD (chronic obstructive pulmonary disease) J44.9 Pneumomediastinum J98.2
--- NOTE | 2019-09-09 15:03 | PM.DCS ---
Discharge Providers Date of Admission: 09/07/19 19:08 Date of Discharge: September 09, 2019 Attending Provider at Admission: Jessy Gagnon MD Attending Provider at Discharge: Rip Driscoll Primary Care Provider: AMANDEEP Barclay Diagnoses at Discharge Discharge Diagnosis (1) Mediastinal lymphadenopathy: Status: Acute (2) COPD (chronic obstructive pulmonary disease): Status: Acute (3) Pneumomediastinum: Status: Acute Reason for Visit Reason for Visit: Reason For Visit: SOB; LYMPH NODES REMOVED Hospital Course Hospital Course: 53-year-old pleasant lady with history of COPD, on chronic 2 L oxygen, chronic migraine, anxiety/depression, schizoaffective disorder, chronic chest pain, history of possible hematemesis, history of possible hemoptysis, having previously undergone GI work-up, following up with Dr. Medley in office, with plans for upper GI study, with identified gastritis on EGD, with incidentally noted enlarged lymph nodes in the chest, status post EBUS and biopsy on 09/05, with persistence of infiltrates on imaging, so far with negative infectious work-up, no signs or symptoms of pneumonia, was placed in observation after returning with shortness of breath, chest discomfort with deep breaths, as well as noted pneumomediastinum on CT. She also subjectively feels has food sticking on the way down. Her chest pain symptoms appear have been of variable quality in the past. She does report history of cough and hemoptysis, which have been reasons workup was pursued and with resultant evaluation of hilar and mediastinal lymphadenopathy. When asked if has had an EGD reports that has had one within a year and that someone told her she may need to have her swallowing tube dilated a little bit. Discussed with her surgeon, who did not see any strictures, webs or rings during the procedure. There was no dilation performed or needd, or other procedure in the esophagus. She was noted to have gastritis, GERD. She is assessed by pulmonology, with thought that here in the mediastinum is likely related to small amount of barotrauma during intubation, and much less likely related to biopsy. There is no concern for mediastinitis. There are no signs of sepsis, and with some persistent infiltrates on CT, no signs of pneumonia. She will follow-up with pulmonology in office regarding biopsy results and persistent lung changes. We discussed with her regarding the results of prior EGD which was done in January 2019. She continues with PPI. She has no persistent pain, there is again as noted no signs of sepsis, and she has no pain with swallowing. Symptoms of food mildly sticking are in her upper swallowing tube . There was a plan with her surgeon on follow-up regarding upper GI study and possibly additional referral for capsule endoscopy later, although she had not yet made appointment which she was planning to do, and this was mostly to investigate prior reports of hematemesis. Later her complaint was clarified as hemoptysis, however, it appears. Due to chronic chest discomfort symptoms and some subjective dysphagia, we will proceed with the study still. Due to pandemic, she made sure she was able to make an appointment here in the hospital, appointment was offered for tomorrow, although the earliest she chose is 09/22. Risk of esophageal perforation being the cause of pneumomediastinum in her case is rather small, however, we discussed with her that since the appointment is so far out, to be on a safe side we would request for the procedure to be done here, although she preferred not to do so and not to prolong hospitalization any further. She reports she is feeling much better, and is wanting to return home. She denies any pain with swallowing. She understands in case she starts having any pain, persistent chest pain, fevers, worsening shortness of breath, or any other problems to emergently proceed to ER. She should continue follow up with both pulmonology and surgery and be vigilant of any worsening or new symptoms with low threshold for evaluation in the hospital. Physical Exam Const: COMMON NORMALS: no apparent distress and oriented x3 OTHER: She is pleasant, conversant, today in much better spirits. Comfortable and not in any distress. HENMT: COMMON NORMALS: oropharynx normal Neck/C-Spine: COMMON NORMALS: no JVD Resp: COMMON NORMALS: normal respiratory effort EFFORT & INSPECTION: Yes audible wheezes Cardio: COMMON NORMALS: no JVD, regular rhythm, S1 normal heart sound, S2 normal heart sound and no murmurs RHYTHM: regular rhythm HEART SOUNDS: S1 normal and S2 normal GI: COMMON NORMALS: normal to inspection, nondistended, normoactive bowel sounds, soft to palpation and non-tender PALPATION: Yes soft Extremity: COMMON NORMALS: no joint enlargement and no pedal edema Neuro: COMMON NORMALS: oriented x3 and moves all extremities Skin: COMMON NORMALS: no rashes or lesions noted GENERAL SKIN EXAM: no rashes or lesions noted Discharge Data Data Completed and Pending: Completed Studies During Hospitalization Category Date Time Status CT angio chest PE protcl [id number] Stat Cat Scan 09/07/19 16:02 Completed XR chest 1V mary ble [id number] Routine Exams 09/08/19 06:00 Completed XR chest 1V mary ble [id number] Stat Exams 09/07/19 14:21 Completed Pending at discharge Category Date Time Status Blood Culture Sta t Lab 09/07/19 16:28 Results Complete Blood Co unt w/Auto AM LABS Lab 09/10/19 04:00 Ordered Complete Blood Co unt w/Auto AM LABS Lab 09/11/19 04:00 Ordered Labs from last 24 hours 09/09/19 05:08 WBC 8.4 RBC 4.38 Hgb 12.7 Hct 41.2 MCV 94.1 MCH 29.0 MCHC 30.8 RDW 15.0 Plt Count 190 MPV 10.0 Neut % (Auto) 53.9 Lymph % (Auto) 29.8 Br[place]ley % (Auto) 10.6 Eos % (Auto) 4.5 Baso % (Auto) 0.7 Neut # (Auto) 4.6 Lymph # (Auto) 2.5 [place] # (Auto) 0.9 Eos # (Auto) 0.4 Baso # (Auto) 0.1 Nucleated RBC % (a uto) 0 Nucleated RBCs # 0.0 Vitals: Last Vital Signs Temp 98.3 F 09/09/19 11:35 Pulse 81 09/09/19 11:35 Resp 16 09/09/19 11:35 BP 127/80 09/09/19 11:35 Pulse Ox 96 09/09/19 11:35 Discharge Plan Discharge Patient Disposition: Home, Self-Care Condition: Stable Prescriptions: Continued albuterol sulfate 2.5 mg /3 mL (0.083 %) solution for nebulization 2.5 mg INHALATION TID PRN (Reason: Cough) Qty: 180 RF: 1 Trelegy Ellipta 100-62.5-25 mcg blister with device 1 inh INHALATION Q24H RF: 0 polyethylene glycol 3350 [Miralax] 17 gram/dose powder 17 gm PO DAILY PRN (Reason: constipation) RF: 0 Ingrezza 40 mg capsule 80 mg PO DAILY RF: 0 pantoprazole [Protonix] 40 mg tablet,delayed release (DR/EC) 40 mg PO DAILY Qty: 30 RF: 5 trazodone 100 mg tablet 200 mg PO BEDTIME 30 Days Qty: 60 RF: 3 hydroxyzine pamoate [Vistaril] 50 mg capsule 50 mg PO TID RF: 0 venlafaxine 50 mg tablet 25 mg PO BID Qty: 30 RF: 0 sucralfate [Carafate] 1 gram tablet 1 gm PO Q6H Qty: 120 RF: 0 aripiprazole [Abilify] 5 mg tablet 5 mg PO DAILY Qty: 30 RF: 1 lamotrigine 200 mg tablet 200 mg PO DAILY RF: 0 hydroxyzine pamoate 100 mg Capsule 100 mg PO BEDTIME RF: 0 Promethegan 25 mg suppository 25 mg [place] Q12H PRN (Reason: Nausea And Vomiting) RF: 0 Discharge Orders: Discharge Order (Routine); Ordered 09/09/19 Ordered By: Rip Driscoll Referrals: [facility] [Outside] Amor Medley MD [Physician] - 4-7 days (With upper GI study.) Dara Tavera FNP [Primary Care Provider] - 4-7 days Arina Bray MD [Physician] - (As scheduled) Discharge Diet: GI Soft Discharge Activity: Resume usual activity and Increase activity as tolerated Patient Instructions: Dysphagia, Chest Pain (DC), Soft Diet (GEN), Dyspnea (GEN) Activity Restrictions/Additional Instructions: Please make sure to chose an appointment time for tomorrow for upper GI study. Centralized scheduling number is [phone]. Continue GI soft diet. Continue tylenol as needed, warm or cold compresses, icy hot, bengay or capsaicin as needed for chest wall pain. If you experience nonresolving chest pain, not reproducible on palpation, pain with swallowing, Discharge Date/Time: 09/09/19 15:21 Discharge Attestations Time Spent in Discharge Care*: greater than 30 min Status at Discharge: Cognitive status at discharge: cognitively intact, Behavioral status at discharge: cooperative, Quality Metrics Clinical Quality Measures During this hospital stay, did patient experience: None Coding Level of Care Code Acute Electric Stop Installer for Chg Fwd Diagnoses Mediastinal lymphadenopathy R59.0 COPD (chronic obstructive pulmonary disease) J44.9 Pneumomediastinum J98.2
== END 2019-09-09 15:21 | disposition home or self-care (01) ==
LOC: ER 19:18 → MEDSURG 20:03
PROVIDERS: Family Medicine; Admitting Provider Student in an Organized Health Care Education/Training Program; Emergency Provider Emergency Medicine; Family Provider Registered Nurse; PCP Registered Nurse; Visit Provider Internal Medicine
DX: J98.2 Interstitial emphysema (principal); J18.9 Pneumonia, unspecified organism; R06.02 Shortness of breath; R59.0 Localized enlarged lymph nodes; Z99.81 Dependence on supplemental oxygen; F41.9 Anxiety disorder, unspecified; F32.9 Major depressive disorder, single episode, unspecified; Z82.49 Family history of ischemic heart disease and other diseases of the circulatory system; Z83.3 Family history of diabetes mellitus; F17.210 Nicotine dependence, cigarettes, uncomplicated
CPT/HCPCS: 12345; 36415; 71045; 71275; 73221; 80048; 80053; 84484; 85025; 87040; 93005; 93010; 94640; 96361; 96365; 96372; 96375; 99284; 99285; G0378; J1650; J1956; J2270; J2405; J7030; J7611; Q9967

== ENCOUNTER 2019-09-19 18:05 | Emergency (ER) | payer MEDICARE, MEDICAID, SELFPAY ==
[2019-09-19 18:06] VITALS: BMI 30.7
--- NOTE | 2019-09-19 18:10 | ECG_ITS ---
Measurements Intervals [place] Rate: 93 P: 60 [place]: 145 QRS: 56 QRSD: 94 T: 67 QT: 375 QTc: 468 SINUS RHYTHM POSSIBLE LEFT ATRIAL ENLARGEMENT [-0.1mV P WAVE IN V1/V2] Compared to ECG 09/07/2019 14:34:35 No significant changes Electronically Signed On 09-20-2019 13:42:12 CDT by Freida Sampson M.D. [id number] f
[2019-09-19 18:11] VITALS: BP 106/46; PULSE 90; RESP 18; TEMP 36.8; O2SAT 96
--- NOTE | 2019-09-19 18:16 | XRR_ITS ---
PROCEDURE INFORMATION: Exam: XR Chest, 1 View Exam date and time: 09/19/2019 6:32 PM Age: 53 years old Clinical indication: Shortness of breath; Chest pain; Prior surgery; Surgery type: Lung biopsy; Additional info: Cough TECHNIQUE: Imaging protocol: XR of the chest Views: 1 view. COMPARISON: CR XR chest 1V portable [id number] 09/08/2019 6:53 AM FINDINGS: Lungs: Unremarkable. No consolidation. Pleural space: Unremarkable. No pleural effusion. No pneumothorax. Heart/Mediastinum: Unremarkable. No cardiomegaly. Bones/joints: Unremarkable. Similar findings is seen compared to prior examination. XR/XR chest 1V portable [id number] IMPRESSION: No acute findings.
--- NOTE | 2019-09-19 18:17 | W.ED.CHESTPA ---
HPI - Chest Pain General: Chief Complaint: Chest Pain Stated Complaint: CHEST PAIN Time Seen by Provider: 09/19/19 18:11 Source: patient and EMS Mode of arrival: EMS Limitations: no limitations History of Present Illness: HPI narrative: 53-year-old female who is well-known to the ER states she has been having chest pain along with cough over the last 2 days. Patient been seen here multiple times for chest pain. She denies any worsening improving factors. Denies severe pain at this time and rates it a 2 out of 10. MD complaint: chest pain Associated symptoms: Deny abdominal pain, dyspnea, fever(s), nausea or vomiting Review of Systems Const: Denies: fever, chills, body aches or change in appetite Eyes: Denies: blurry vision or eye discomfort ENMT: Denies: throat pain or dental pain Card: Reports: chest pain Resp: Denies: shortness of breath GI: Denies: abdominal pain, nausea, vomiting or diarrhea : Denies: painful urination Musc: Denies: neck pain or back pain Skin/Breast: Denies: rash Neuro: Denies: headache Psych: Denies: depression Wilbur/Lymph: Denies: easy bruising All/Imm: Denies: hives PFSH ED PFSH: Social History Smoking and tobacco status: current every day smoker cigarettes Packs smoked per day: 0.5 Years cigarettes smoked: 26 Quit status (tobacco): considering quitting Smoking risk assessment/counseling performed?: Yes Alcohol intake: never Lives independently: Yes Household members: spouse Housing: House Marital status: Number of children: 3 Current occupational status: disabled History of recent travel: No Current gender identity: Female Female Reproductive History: Date of last menstrual period: 06/19/89 Physical Exam Const: COMMON NORMALS: no apparent distress, oriented x3 and healthy appearing HENMT: COMMON NORMALS: normocephalic and head/scalp atraumatic HEAD & SCALP: normocephalic and atraumatic Eye: COMMON NORMALS: PERRL and EOMs intact bilaterally PUPIL: Yes PERRL Neck/C-Spine: COMMON NORMALS: full ROM and supple Chest: COMMONS NORMALS: inspection of chest normal and palpation of chest normal Resp: COMMON NORMALS: normal respiratory effort, no retractions, no use of accessory muscles and clear to auscultation bilaterally AUSCULTATION: clear to auscultation bilaterally Cardio: COMMON NORMALS: regular rate, regular rhythm and no murmurs RATE: regular rate RHYTHM: regular rhythm GI: COMMON NORMALS: normal to inspection, nondistended, normoactive bowel sounds, soft to palpation, non-tender and no masses PALPATION: Yes soft Extremity: COMMON NORMALS: normal to inspection and full ROM Neuro: COMMON NORMALS: oriented x3, moves all extremities and no focal motor deficits Psych: COMMON NORMALS: mental status grossly normal, thought process normal and cooperative THOUGHT PROCESS: normal thought process Skin: COMMON NORMALS: no rashes or lesions noted and no wounds GENERAL SKIN EXAM: no rashes or lesions noted Course Vital Signs: Vital signs: Vital Signs Temperature 98.2 F 09/19/19 18:11 Pulse Rate 90 09/19/19 18:11 Respiratory Rate 16 09/19/19 20:20 Blood Pressure 106/46 09/19/19 18:11 Pulse Oximetry 96 09/19/19 18:11 MDM - Chest Pain MDM Narrative: Medical decision making narrative: 53-year-old female presents with chest pain that is been chronic in nature. Initial and repeat troponins here are negative. White count is mildly elevated but she has no signs of acute infection. She is to follow-up with her primary care doctor in 3 to 5 days return if worsening. Patient understands and agrees to plan. Lab Data: Labs: Lab Results 09/19/19 09/19/19 09/19/19 Range/Units 18:18 18:18 18:18 WBC 17.6 H (4.0-10.0) 10^3/ uL RBC 4.44 (4.1-5.3) 10^6/u L Hgb 12.9 (11.5-15.3) g/dL Hct 39.9 (37.0-47.0) % MCV 89.9 (81-99) fL MCH 29.1 (28.0-34.0) pg MCHC 32.3 (30.0-36.0) g/dL RDW 14.8 (12.1-15.1) % Plt Count 304 (130-400) 10^3/c mm MPV 10.0 (7.4-10.4) fL Neut % (Auto) 71.3 % Lymph % (Auto) 17.7 % [place] % (Auto) 7.9 % Eos % (Auto) 1.9 % Baso % (Auto) 0.7 % Neut # (Auto) 12.6 H (1.8-7.7) 10^3/u L Lymph # (Auto) 3.1 (0.8-4.8) 10^3/u L [place] # (Auto) 1.4 H (0.2-0.9) 10^3/u L Eos # (Auto) 0.3 (0.0-0.8) 10^3/u L Baso # (Auto) 0.1 (0.0-0.1) 10^3/u L Nucleated RBC % (a uto) 0 % Nucleated RBCs # 0.0 /100WBC Sodium 135 L (136-145) mmol/L Potassium 3.8 (3.5-5.1) mmol/L Chloride 101 (98-107) mmol/L Carbon Dioxide 22 (22-29) mmol/L Anion Gap 15.8 (5-19) BUN 20 (6-20) mg/dL Creatinine 1.3 H (0.5-0.9) mg/dL GFR Calculation 43.2 L (90-130) mL/min Glucose 116 H (65-115) mg/dL Calculated Osmolal ity 278 L (285-295) mOsm/k g Calcium 9.1 (8.5-10.5) mg/dL Total Bilirubin 0.2 (0.15-1.2) mg/dL AST 8 (0-32) U/L ALT 6 (0-33) U/L Alkaline Phosphata se 125 H (35-105) IU/L Troponin T Baselin e 6 (0-10) ng/mL Troponin T 120 Min [place] (0-10) ng/mL Total Protein 6.6 (6.6-8.7) g/dL Albumin 3.9 (3.5-5.2) g/dL Globulin 2.7 (1.3-4.6) g/dL 09/19/19 Range/Units 20:22 WBC (4.0-10.0) 10^3/ uL RBC (4.1-5.3) 10^6/u L Hgb (11.5-15.3) g/dL Hct (37.0-47.0) % MCV (81-99) fL MCH (28.0-34.0) pg MCHC (30.0-36.0) g/dL RDW (12.1-15.1) % Plt Count (130-400) 10^3/c mm MPV (7.4-10.4) fL Neut % (Auto) % Lymph % (Auto) % [place] % (Auto) % Eos % (Auto) % Baso % (Auto) % Neut # (Auto) (1.8-7.7) 10^3/u L Lymph # (Auto) (0.8-4.8) 10^3/u L [place] # (Auto) (0.2-0.9) 10^3/u L Eos # (Auto) (0.0-0.8) 10^3/u L Baso # (Auto) (0.0-0.1) 10^3/u L Nucleated RBC % (a uto) % Nucleated RBCs # /100WBC Sodium (136-145) mmol/L Potassium (3.5-5.1) mmol/L Chloride (98-107) mmol/L Carbon Dioxide (22-29) mmol/L Anion Gap (5-19) BUN (6-20) mg/dL Creatinine (0.5-0.9) mg/dL GFR Calculation (90-130) mL/min Glucose (65-115) mg/dL Calculated Osmolal ity (285-295) mOsm/k g Calcium (8.5-10.5) mg/dL Total Bilirubin (0.15-1.2) mg/dL AST (0-32) U/L ALT (0-33) U/L Alkaline Phosphata se (35-105) IU/L Troponin T Baselin e (0-10) ng/mL Troponin T 120 Min [place] 6.13 (0-10) ng/mL Total Protein (6.6-8.7) g/dL Albumin (3.5-5.2) g/dL Globulin (1.3-4.6) g/dL Imaging Data^: CXR: Radiologist's impression: [facility] [address] [address] XRay Report Signed Patient: Latesha Wilhelm Unit #: [id number] : 1965 Age/Sex: 53 / F ADM Date: 09/19/19 Loc: ER Room/Bed: Attending Dr: Ordering Provider/Ordering MD: Damien Urbina MD Date of Service: 09/19/19 Procedure(s): XR chest 1V portable [id number] Accession Number(s): [id number] Report Number: [id number] PROCEDURE INFORMATION: Exam: XR Chest, 1 View Exam date and time: 09/19/2019 6:32 PM Age: 53 years old Clinical indication: Shortness of breath; Chest pain; Prior surgery; Surgery type: Lung biopsy; Additional info: Cough TECHNIQUE: Imaging protocol: XR of the chest Views: 1 view. COMPARISON: CR XR chest 1V portable [id number] 09/08/2019 6:53 AM FINDINGS: Lungs: Unremarkable. No consolidation. Pleural space: Unremarkable. No pleural effusion. No pneumothorax. Heart/Mediastinum: Unremarkable. No cardiomegaly. Bones/joints: Unremarkable. Similar findings is seen compared to prior examination. XR/XR chest 1V portable [id number] IMPRESSION: No acute findings. EKG Data^: EKG 1: Attestation: I personally reviewed and interpreted this EKG as follows: EKG interpretation date: 09/19/19 EKG interpretation time: 18:09 Interpretation: nsr hr [address] or t wave abnormalities qrs 94 qtc 426 EKG 2: Attestation: I personally reviewed and interpreted this EKG as follows: EKG interpretation date: 09/19/19 EKG interpretation time: 20:47 Interpretation: nsr hr [address] or t wave abnormalities qrs 94 qtc 450 Discharge Plan Discharge Patient Disposition: Home, Self-Care Clinical Impression: Chest pain Qualifiers: Chest pain type: other chest pain Qualified Code(s): R07.89 - Other chest pain Condition: Stable Prescriptions: No Action albuterol sulfate 2.5 mg /3 mL (0.083 %) solution for nebulization 2.5 mg INHALATION TID PRN (Reason: Cough) Qty: 180 RF: 1 nystatin 100,000 unit/gram powder 1 applic TOPICAL BID Qty: 60 RF: 3 polyethylene glycol 3350 [Miralax] 17 gram/dose powder 17 gm PO DAILY PRN (Reason: constipation) RF: 0 pantoprazole [Protonix] 40 mg tablet,delayed release (DR/EC) 40 mg PO DAILY Qty: 30 RF: 5 trazodone 100 mg tablet 200 mg PO BEDTIME 30 Days Qty: 60 RF: 3 hydroxyzine pamoate [Vistaril] 50 mg capsule 50 mg PO TID RF: 0 sucralfate [Carafate] 1 gram tablet 1 gm PO Q6H Qty: 120 RF: 0 aripiprazole [Abilify] 5 mg tablet 5 mg PO DAILY Qty: 30 RF: 1 venlafaxine 50 mg tablet 25 mg PO BID Qty: 30 RF: 0 Ingrezza 40 mg capsule 80 mg PO DAILY Qty: 60 RF: 2 lamotrigine 200 mg tablet 200 mg PO DAILY RF: 0 Trelegy Ellipta 100-62.5-25 mcg blister with device 1 inh INHALATION DAILY RF: 0 hydroxyzine pamoate 100 mg Capsule 100 mg PO BEDTIME RF: 0 promethazine [Promethegan] 25 mg suppository 25 mg [place] Q12H PRN (Reason: Nausea And Vomiting) RF: 0 Discharge Orders: Discharge Order (Routine); Ordered 09/19/19 Ordered By: Damien Urbina Referrals: Dara Tavera FNP [Primary Care Provider] - 4-7 days Discharge Diet: Advance as tolerated Discharge Activity: Resume usual activity Patient Instructions: Chest Pain (ED) Coding Level of Care Code ED Carroting Machine Offbearer for Chg Fwd Exam Comprehensive
[2019-09-19 18:24] LABS: Basophils # 0.1 10^3/uL (0.0-0.1); Basophils % 0.7 %; Eosinophils # 0.3 10^3/uL (0.0-0.8); Eosinophils % 1.9 %; Hematocrit 39.9 % (37.0-47.0); Hemoglobin 12.9 g/dL (11.5-15.3); Lymphocytes # 3.1 10^3/uL (0.8-4.8); Lymphocytes % 17.7 %; Mean Corpuscular HGB Conc 32.3 g/dL (30.0-36.0); Mean Corpuscular Hemoglobin 29.1 pg (28.0-34.0); Mean Corpuscular Volume 89.9 fL (81-99); Monocytes # 1.4 10^3/uL (0.2-0.9); Monocytes % 7.9 %; Neutrophils # 12.6 10^3/uL (1.8-7.7); Neutrophils % 71.3 %; Nucleated Red Blood Cells % 0 %; Platelet Count 304 10^3/cmm (130-400); Red Blood Count 4.44 10^6/uL (4.1-5.3); Red Cell Distribution Width 14.8 % (12.1-15.1); White Blood Count 17.6 10^3/uL (4.0-10.0)
[2019-09-19 18:50] LABS: Alanine Aminotransferase 6 U/L (0-33); Albumin Level 3.9 g/dL (3.5-5.2); Alkaline Phosphatase 125 IU/L (35-105); Anion Gap 15.8 (5-19); Aspartate Amino Transferase 8 U/L (0-32); Blood Urea Nitrogen 20 mg/dL (6-20); Calcium 9.1 mg/dL (8.5-10.5); Carbon Dioxide 22 mmol/L (22-29); Chloride 101 mmol/L (98-107); Globulin 2.7 g/dL (1.3-4.6); Glomerular Filtration Rate 43.2 mL/min (90-130); Glucose 116 mg/dL (65-115); Osmolality Calculated 278 mOsm/kg (285-295); Potassium 3.8 mmol/L (3.5-5.1); Sodium 135 mmol/L (136-145); Total Bilirubin 0.2 mg/dL (0.15-1.2); Total Protein 6.6 g/dL (6.6-8.7)
[2019-09-19 18:51] LABS: Troponin(5th) Baseline 6 ng/mL (0-10)
--- NOTE | 2019-09-19 20:10 | ECG_ITS ---
Measurements Intervals [place] Rate: 75 P: 57 NM: 149 QRS: 48 QRSD: 94 T: 60 QT: 421 QTc: 471 SINUS RHYTHM POSSIBLE LEFT ATRIAL ENLARGEMENT [-0.1mV P WAVE IN V1/V2] Compared to ECG 09/07/2019 14:34:35 No significant changes Electronically Signed On 09-20-2019 13:45:25 CDT by Freida Sampson M.D. [id number]
[2019-09-19 20:20] VITALS: RESP 16
[2019-09-19] MEDS: morphine 4 mg/mL SDV 1 mL IVP (20:20)
[2019-09-19 20:59] LABS: Troponin 5 2HR 6.13 ng/mL (0-10); Troponin 5 2HR Delta 0.13 ABS# (0-10)
== END 2019-09-19 22:17 | disposition home or self-care (01) ==
PROVIDERS: Emergency Provider Emergency Medicine; Family Provider Registered Nurse; PCP Registered Nurse
DX: R07.89 Other chest pain (principal); F17.210 Nicotine dependence, cigarettes, uncomplicated; J44.9 Chronic obstructive pulmonary disease, unspecified; K21.9 Gastro-esophageal reflux disease without esophagitis; I50.9 Heart failure, unspecified; F51.05 Insomnia due to other mental disorder; F41.9 Anxiety disorder, unspecified
CPT/HCPCS: 12345; 71045; 80053; 84484; 85025; 93005; 96374; 96376; 99283; 99284; J2270

== ENCOUNTER 2019-09-27 14:31 | Emergency (ER) | payer MEDICARE, MEDICAID, SELFPAY ==
[2019-09-27 14:32] VITALS: BP 114/78; PULSE 106; RESP 16; TEMP 36.7; O2SAT 96; BMI 31.6
--- NOTE | 2019-09-27 14:45 | ECG_ITS ---
Measurements Intervals [place] Rate: 86 P: 53 [place]: 138 QRS: 51 QRSD: 96 T: 49 QT: 379 QTc: 454 SINUS RHYTHM INDETERMINATE AXIS Compared to ECG 09/19/2019 20:06:17 Indeterminate axis now present Electronically Signed On 09-27-2019 17:06:37 CDT by Kenan Sidhu M.D. [id number]
--- NOTE | 2019-09-27 14:55 | ED_ITS ---
HPI - Chest Pain General: Chief Complaint: Chest Pain Stated Complaint: CHEST PAIN Time Seen by Provider: 09/27/19 14:44 History of Present Illness: HPI narrative: Patient presents with left-sided chest pain that started while she was doing dishes. Pain radiates down her arm. She describes it as a squeezing pain and is episodic. She has baseline shortness of breath and there is no change in her breathing status. She smokes cigarettes complaint: chest pain Onset (ago): hour(s) (1) Timing of current episode: episodic Prior episodes: No Onset: during exertion Pain location: left chest Pain radiation: left arm Severity: moderate Relieving factors: nothing Exacerbating factors: exertion Associated symptoms: Reports no associated symptoms and dyspnea; Deny abdominal pain, fever(s), nausea or vomiting Review of Systems General: Reports: 10 or more systems reviewed and unremarkable except in HPI and below Const: Denies: fever, chills or body aches Eyes: Denies: change in vision or blurry vision ENMT: Denies: throat pain, enlarged tonsils, painful swallowing, hoarseness, mouth pain or swelling of lips/tongue Card: Reports: chest pain Resp: Reports: shortness of breath GI: Denies: abdominal pain, nausea or vomiting : Denies: flank pain, difficulty urinating, painful urination, urinary frequency, urinary urgency or urinary hesitancy Musc: Denies: neck pain, back pain or extremity swelling Skin/Breast: Denies: rash, itching or redness Neuro: Denies: headache, numbness in extremities or weakness in extremities Endo: Denies: excessive urination, excessive thirst or tired all the time PFSH ED PFSH: Medical History (Updated 09/27/19 @ 18:22 by Elva Weston MD, [facility] [place]) Bladder stone Chronic anxiety Chronic cystitis with hematuria Foreign body in bladder Hemoptysis Surgical History (Updated 09/27/19 @ 09:01 by EUNICE Vila) H/O: hysterectomy History of appendectomy History of breast biopsy History of ureter stent Hx of cholecystectomy Social History Smoking and tobacco status: current every day smoker cigarettes Packs smoked per day: 0.5 Years cigarettes smoked: 26 Quit status (tobacco): considering quitting Smoking risk assessment/counseling performed?: Yes Alcohol intake: never Lives independently: Yes Household members: spouse Housing: House Marital status: Number of children: 3 Current occupational status: disabled History of recent travel: No Current gender identity: Female Female Reproductive History: Date of last menstrual period: 06/19/89 Physical Exam Const: COMMON NORMALS: no apparent distress, average body habitus, oriented x3, no limitations, healthy appearing, alert and well nourished HENMT: COMMON NORMALS: normocephalic, head/scalp atraumatic and moist oral mucous membranes HEAD & SCALP: normocephalic and atraumatic Eye: COMMON NORMALS: PERRL, EOMs intact bilaterally, conjunctivae normal and no scleral icterus CONJUNCTIVA: Yes conjunctivae normal PUPIL: Yes PERRL Neck/C-Spine: COMMON NORMALS: full ROM, supple, no meningeal signs, no JVD and no carotid bruits Chest: COMMONS NORMALS: inspection of chest normal and palpation of chest normal Resp: COMMON NORMALS: normal respiratory effort, no retractions, no use of accessory muscles, clear to auscultation bilaterally and percussion normal AUSCULTATION: clear to auscultation bilaterally PERCUSSION: percussion normal Cardio: COMMON NORMALS: no JVD, regular rate, regular rhythm, S1 normal heart sound, S2 normal heart sound, no gallops, no clicks, no murmurs, no rub and peripheral pulses 2+ throughout RATE: regular rate RHYTHM: regular rhythm HEART SOUNDS: S1 normal and S2 normal PERIPHERAL PULSES: pulses 2+ throughout GI: COMMON NORMALS: normal to inspection, nondistended, normoactive bowel sounds, soft to palpation, non-tender, no hepatosplenomegaly, no masses and no bruits PALPATION: Yes soft and Yes no hepatosplenomegaly : COMMON NORMALS: Yes no CVA tenderness BLADDER/KIDNEY EXAM: Yes no CVA tenderness Back/Pelvis: COMMON NORMALS: no CVA tenderness Extremity: COMMON NORMALS: normal to inspection, full ROM, normal capillary refill, no calf tenderness and no pedal edema Neuro: COMMON NORMALS: oriented x3 SENSORIUM/ORIENTATION: Yes alert MENINGEAL SIGNS: Yes no meningeal signs Skin: COMMON NORMALS: no rashes or lesions noted, no wounds, skin turgor normal, no jaundice, no petechiae and no mottling GENERAL SKIN EXAM: no rashes or lesions noted and turgor normal Course Reevaluation(s): Reevaluation #1: Discussed her lab and imaging findings with her. Negative high-sensitivity troponin x2, negative chest x-ray. She does have leukocytosis but the last time she got the blood draw was also higher than this. Since I cannot find any reason for chest pain she will be discharged home to follow-up with her primary care provider. She voiced understanding and is in agreement with the plan Time: 18:20 Vital Signs: Vital signs: Vital Signs Temperature 98.1 F 09/27/19 14:32 Pulse Rate 84 09/27/19 17:45 Respiratory Rate 19 H 09/27/19 17:45 Blood Pressure 120/69 09/27/19 17:45 Pulse Oximetry 96 09/27/19 17:45 MDM - Chest Pain MDM Narrative: Medical decision making narrative: 53-year-old female patient who is a frequent visitor to the emergency department who presents with chest pain. Evaluation in the ED is unremarkable and she is discharged home with no new orders. HEART score is 2 Differential Diagnosis: Cardiac arrest differential diagnosis: Likely acute respiratory failure and acute myocardial infarction Medical Records: Attestation: I reviewed the patient's medical records. Lab Data: Labs: Lab Results 09/27/19 09/27/19 09/27/19 Range/Units 15:12 15:12 15:12 WBC 16.1 H (4.0-10.0) 10^3/ uL RBC 4.85 (4.1-5.3) 10^6/u L Hgb 13.7 (11.5-15.3) g/dL Hct 42.6 (37.0-47.0) % MCV 87.8 (81-99) fL MCH 28.2 (28.0-34.0) pg MCHC 32.2 (30.0-36.0) g/dL RDW 14.8 (12.1-15.1) % Plt Count 296 (130-400) 10^3/c mm MPV 10.0 (7.4-10.4) fL Neut % (Auto) 74.7 % Lymph % (Auto) 14.9 % [place] % (Auto) 7.8 % Eos % (Auto) 1.7 % Baso % (Auto) 0.6 % Neut # (Auto) 12.0 H (1.8-7.7) 10^3/u L Lymph # (Auto) 2.4 (0.8-4.8) 10^3/u L [place] # (Auto) 1.3 H (0.2-0.9) 10^3/u L Eos # (Auto) 0.3 (0.0-0.8) 10^3/u L Baso # (Auto) 0.1 (0.0-0.1) 10^3/u L Nucleated RBC % (a uto) 0 % Nucleated RBCs # 0.0 /100WBC Sodium 140 (136-145) mmol/L Potassium 3.7 (3.5-5.1) mmol/L Chloride 105 (98-107) mmol/L Carbon Dioxide 22 (22-29) mmol/L Anion Gap 16.7 (5-19) BUN 24 H (6-20) mg/dL Creatinine 1.1 H (0.5-0.9) mg/dL GFR Calculation 52.4 L (90-130) mL/min Glucose 110 (65-115) mg/dL Calculated Osmolal ity 287 (285-295) mOsm/k g Calcium 9.8 (8.5-10.5) mg/dL Total Bilirubin 0.2 (0.15-1.2) mg/dL AST 9 (0-32) U/L ALT 7 (0-33) U/L Alkaline Phosphata se 137 H (35-105) IU/L Troponin T Baselin e 6 (0-10) ng/mL Troponin T 120 Min [place] (0-10) ng/mL Delta Troponin T (0-10) ABS# NT-Pro-B Natriuret Pep 22 (0-125) pg/mL Total Protein 6.7 (6.6-8.7) g/dL Albumin 3.8 (3.5-5.2) g/dL Globulin 2.9 (1.3-4.6) g/dL Lipase 39 (13-60) U/L 09/27/19 Range/Units 17:20 WBC (4.0-10.0) 10^3/ uL RBC (4.1-5.3) 10^6/u L Hgb (11.5-15.3) g/dL Hct (37.0-47.0) % MCV (81-99) fL MCH (28.0-34.0) pg MCHC (30.0-36.0) g/dL RDW (12.1-15.1) % Plt Count (130-400) 10^3/c mm MPV (7.4-10.4) fL Neut % (Auto) % Lymph % (Auto) % [place] % (Auto) % Eos % (Auto) % Baso % (Auto) % Neut # (Auto) (1.8-7.7) 10^3/u L Lymph # (Auto) (0.8-4.8) 10^3/u L [place] # (Auto) (0.2-0.9) 10^3/u L Eos # (Auto) (0.0-0.8) 10^3/u L Baso # (Auto) (0.0-0.1) 10^3/u L Nucleated RBC % (a uto) % Nucleated RBCs # /100WBC Sodium (136-145) mmol/L Potassium (3.5-5.1) mmol/L Chloride (98-107) mmol/L Carbon Dioxide (22-29) mmol/L Anion Gap (5-19) BUN (6-20) mg/dL Creatinine (0.5-0.9) mg/dL GFR Calculation (90-130) mL/min Glucose (65-115) mg/dL Calculated Osmolal ity (285-295) mOsm/k g Calcium (8.5-10.5) mg/dL Total Bilirubin (0.15-1.2) mg/dL AST (0-32) U/L ALT (0-33) U/L Alkaline Phosphata se (35-105) IU/L Troponin T Baselin e (0-10) ng/mL Troponin T 120 Min [place] 6.00 (0-10) ng/mL Delta Troponin T 0 (0-10) ABS# NT-Pro-B Natriuret Pep (0-125) pg/mL Total Protein (6.6-8.7) g/dL Albumin (3.5-5.2) g/dL Globulin (1.3-4.6) g/dL Lipase (13-60) U/L Imaging Data^: CXR: Radiologist's impression: [facility] [address] [place] [address] XRay Report Signed Patient: Nazia Wihlelm #: [id number] : 1965Acct#:[id number] Age/Sex: 53 / FADM Date: 09/27/19 Loc: ERRoom/Bed: Attending Dr: Ordering Provider/Ordering MD: Elva Weston MD, [facility] [place] Date of Service: 09/27/19 Procedure(s): XR chest 2V* 25303 Accession Number(s): [id number] Report Number: [id number] WS: [id number] PROCEDURE: XR chest 2V* [id number] CLINICAL INFORMATION: chest pain COMPARISON: September 19, 2019 FINDINGS: Heart: Normal cardiac silhouette. Lungs: Lungs are clear. No consolidation or pleural fluid. No focal pneumonia. Bones: Normal visualized bony structures. Cholecystectomy clips. XR/XR chest 2V* [id number] IMPRESSION: No acute chest findings. No acute pulmonary infiltrates. Dictated By:Cleveland Hollins MD Signed By:Cleveland Hollins MDSigned Date/Time:09/27/191631 DD/ 1631 EKG Data^: EKG 1: Attestation: I personally reviewed and interpreted this EKG as follows: EKG interpretation date: 09/27/19 EKG interpretation time: 15:20 Interpretation: Normal sinus rhythm. Heart rate 86 bpm. Normal axis. No ST changes. EKG 2: Attestation: I personally reviewed and interpreted this EKG as follows: EKG interpretation date: 09/27/19 EKG interpretation time: 16:59 Prior EKG tracings: available for review Interpretation: Unchanged from earlier, normal EKG Discharge Plan Discharge Patient Disposition: Home, Self-Care Clinical Impression: Chest pain Qualifiers: Chest pain type: other chest pain Qualified Code(s): R07.89 - Other chest pain Leucocytosis Qualifiers: Leukocytosis type: unspecified Qualified Code(s): D72.829 - Elevated white blood cell count, unspecified Condition: Stable Prescriptions: Continued albuterol sulfate 2.5 mg /3 mL (0.083 %) solution for nebulization 2.5 mg INHALATION TID PRN (Reason: Cough) Qty: 180 RF: 1 nystatin 100,000 unit/gram powder 1 applic TOPICAL BID Qty: 60 RF: 3 nitrofurantoin monohyd/m-cryst [Macrobid] 100 mg capsule 100 mg PO BID RF: 0 trospium 20 mg tablet 20 mg PO BID Qty: 60 RF: 3 polyethylene glycol 3350 [Miralax] 17 gram/dose powder 17 gm PO DAILY PRN (Reason: constipation) RF: 0 pantoprazole [Protonix] 40 mg tablet,delayed release (DR/EC) 40 mg PO DAILY Qty: 30 RF: 5 trazodone 100 mg tablet 200 mg PO BEDTIME 30 Days Qty: 60 RF: 3 hydroxyzine pamoate [Vistaril] 50 mg capsule 50 mg PO TID RF: 0 sucralfate [Carafate] 1 gram tablet 1 gm PO Q6H Qty: 120 RF: 0 aripiprazole [Abilify] 5 mg tablet 5 mg PO DAILY Qty: 30 RF: 1 venlafaxine 50 mg tablet 25 mg PO BID Qty: 30 RF: 0 Ingrezza 80 mg capsule 80 mg PO DAILY Qty: 30 RF: 2 lamotrigine 200 mg tablet 200 mg PO DAILY RF: 0 Trelegy Ellipta 100-62.5-25 mcg blister with device 1 inh INHALATION DAILY RF: 0 hydroxyzine pamoate 100 mg Capsule 100 mg PO BEDTIME RF: 0 promethazine [Promethegan] 25 mg suppository 25 mg MA Q12H PRN (Reason: Nausea And Vomiting) RF: 0 Discharge Orders: Discharge Order (Routine); Ordered 09/27/19 Ordered By: Elva Weston Referrals: Dara Tavera, CATH LABORATORY TECHNICIAN [Primary Care Provider] - 1-3 days Discharge Diet: Usual diet Discharge Activity: Resume usual activity Patient Instructions: Chest Pain (ED) Activity Restrictions/Additional Instructions: Return for any new or worsening symptoms. Follow-up with your primary care prov ider within 2 days. Take your medicines as prescribed. Discharge Date/Time: 09/27/19 18:35 Coding Level of Care Code ED Traffic Investigator for Chg Fwd Exam Comprehensive
[2019-09-27 15:01] VITALS: O2SAT 95
[2019-09-27 15:22] LABS: Basophils # 0.1 10^3/uL (0.0-0.1); Basophils % 0.6 %; Eosinophils # 0.3 10^3/uL (0.0-0.8); Eosinophils % 1.7 %; Hematocrit 42.6 % (37.0-47.0); Hemoglobin 13.7 g/dL (11.5-15.3); Lymphocytes # 2.4 10^3/uL (0.8-4.8); Lymphocytes % 14.9 %; Mean Corpuscular HGB Conc 32.2 g/dL (30.0-36.0); Mean Corpuscular Hemoglobin 28.2 pg (28.0-34.0); Mean Corpuscular Volume 87.8 fL (81-99); Monocytes # 1.3 10^3/uL (0.2-0.9); Monocytes % 7.8 %; Neutrophils % 74.7 %; Nucleated Red Blood Cells % 0 %; Platelet Count 296 10^3/cmm (130-400); Red Blood Count 4.85 10^6/uL (4.1-5.3); Red Cell Distribution Width 14.8 % (12.1-15.1); White Blood Count 16.1 10^3/uL (4.0-10.0)
[2019-09-27 15:55] LABS: Troponin(5th) Baseline 6 ng/mL (0-10)
[2019-09-27 16:04] LABS: Alanine Aminotransferase 7 U/L (0-33); Albumin Level 3.8 g/dL (3.5-5.2); Alkaline Phosphatase 137 IU/L (35-105); Anion Gap 16.7 (5-19); Aspartate Amino Transferase 9 U/L (0-32); Blood Urea Nitrogen 24 mg/dL (6-20); Calcium 9.8 mg/dL (8.5-10.5); Carbon Dioxide 22 mmol/L (22-29); Chloride 105 mmol/L (98-107); Globulin 2.9 g/dL (1.3-4.6); Glomerular Filtration Rate 52.4 mL/min (90-130); Glucose 110 mg/dL (65-115); Lipase 39 U/L (13-60); NT Pro B Type Natriuretic Pept 22 pg/mL (0-125); Osmolality Calculated 287 mOsm/kg (285-295); Potassium 3.7 mmol/L (3.5-5.1); Sodium 140 mmol/L (136-145); Total Bilirubin 0.2 mg/dL (0.15-1.2); Total Protein 6.7 g/dL (6.6-8.7)
--- NOTE | 2019-09-27 16:05 | XR_ITS ---
WS: [id number] PROCEDURE: XR chest 2V* [id number] CLINICAL INFORMATION: chest pain COMPARISON: September 19, 2019 FINDINGS: Heart: Normal cardiac silhouette. Lungs: Lungs are clear. No consolidation or pleural fluid. No focal pneumonia. Bones: Normal visualized bony structures. Cholecystectomy clips. XR/XR chest 2V* [id number] IMPRESSION: No acute chest findings. No acute pulmonary infiltrates.
--- NOTE | 2019-09-27 16:23 | PC.NURSE ---
portable xray at bedside
--- NOTE | 2019-09-27 16:45 | ECG_ITS ---
Measurements Intervals [place] Rate: 77 P: 61 AR: 149 QRS: 55 QRSD: 95 T: 49 QT: 392 QTc: 444 SINUS RHYTHM Compared to ECG 09/27/2019 15:20:18 Indeterminate axis no longer present Electronically Signed On 09-28-2019 10:02:18 CDT by Temo Tony M.D. [email or web address]
[2019-09-27 17:45] VITALS: BP 120/69; PULSE 84; RESP 19; O2SAT 96
[2019-09-27 17:53] LABS: Troponin 5 2HR Delta 0 ABS# (0-10)
[2019-09-27 18:35] VITALS: BP 119/72; PULSE 86; RESP 13; O2SAT 94
== END 2019-09-27 18:35 | disposition home or self-care (01) ==
PROVIDERS: Emergency Provider Family Medicine; Family Provider Registered Nurse; PCP Registered Nurse
DX: D72.829 Elevated white blood cell count, unspecified (principal); R07.89 Other chest pain; F41.9 Anxiety disorder, unspecified; F17.210 Nicotine dependence, cigarettes, uncomplicated; Z90.49 Acquired absence of other specified parts of digestive tract; Z90.710 Acquired absence of both cervix and uterus
CPT/HCPCS: 12345; 36415; 71046; 80053; 83690; 83880; 84484; 85025; 93005; 99282; 99283; 99284

== ENCOUNTER 2019-10-03 18:55 | Inpatient (IN) | payer MEDICARE, MEDICAID, SELFPAY ==
[2019-10-03 18:59] VITALS: BP 125/82; PULSE 79; RESP 16; TEMP 36.7; O2SAT 95; BMI 30.9
--- NOTE | 2019-10-03 19:08 | ED_ITS ---
HPI - Psych General: Chief Complaint: Psychiatric Symptoms Stated Complaint: SUICIDAL IDEATIONS Time Seen by Provider: 10/03/19 19:00 Source: patient Mode of arrival: EMS Limitations: no limitations History of Present Illness: HPI Narrative: Patient is a 53-year-old female who presents to ED today with complaints of suicidal ideations that began today. Patient tells me she is struggling due to the fact that her is an abusive alcoholic. Patient tells me she has a previous overdose attempt on Xanax and states her current plan for suicide is attempting another overdose. She complains of auditory hallucinations telling her to kill herself. She complains of severe anxiety-using Vistaril to treat this but has been unsuccessful. She reports marijuana use but no other drug use. Denies alcohol use. MD complaint: suicidal ideation and feels depressed Relieving factors: none Context: significant life stressor Associated psychiatric symptoms: depression, suicidal ideation and auditory hallucinations Associated symptoms: Reports auditory hallucinations, depression and suicidal ideation; Deny visual hallucinations or homicidal ideation Treatments prior to arrival: none If self harm: admits thoughts of self harm and has plan Review of Systems Const: Denies: fever or chills Card: Denies: chest pain, palpitations, lightheadedness or syncope Resp: Denies: shortness of breath GI: Denies: abdominal pain, nausea, vomiting or diarrhea Skin/Breast: Denies: rash Neuro: Denies: headache Psych: Reports: anxiety, depression, hopelessness, auditory hallucinations and suicidal ideation; Denies: visual hallucinations or homicidal ideation COUNT INCLUDES THE [facility] ED PFSH: Medical History (Updated 10/03/19 @ 20:47 by ALBERT Russo) Bladder stone Chronic anxiety Chronic cystitis with hematuria Foreign body in bladder Hemoptysis Neurogenic bladder Oxygen dependent Urgency incontinence Surgical History (Updated 10/03/19 @ 10:21 by Arina Bray MD) H/O: hysterectomy History of appendectomy History of breast biopsy History of ureter stent Hx of cholecystectomy S/P bronchoscopy with biopsy Social History Smoking and tobacco status: current every day smoker cigarettes Years cigarettes smoked: 26 Quit status (tobacco): considering quitting Smoking risk assessment/counseling performed?: Yes Alcohol intake: never Lives independently: Yes Household members: spouse Housing: House Marital status: Number of children: 3 Current occupational status: disabled History of recent travel: No Current gender identity: Female Female Reproductive History: Date of last menstrual period: 06/19/89 Physical Exam Const: COMMON NORMALS: no apparent distress, oriented x3, alert and well nourished GENERAL APPEARANCE: cooperative ORIENTATION/CONSCIOUSNESS: Yes oriented to person, Yes oriented to place and Yes oriented to time Resp: COMMON NORMALS: normal respiratory effort and clear to auscultation bilaterally AUSCULTATION: clear to auscultation bilaterally Cardio: COMMON NORMALS: regular rate and regular rhythm RATE: regular rate RHYTHM: regular rhythm Neuro: JEANINE COMA SCALE: document GCS findings Jeanine coma scale eye opening: Spontaneous Jeanine coma scale verbal response: Orientated Petros coma scale motor response: Obey commands Petros coma scale total score: 15 COMMON NORMALS: oriented x3 SENSORIUM/ORIENTATION: Yes alert, Yes oriented to person, Yes oriented to place and Yes oriented to time Psych: COMMON NORMALS: mental status grossly normal, thought process normal, cooperative, affect normal, speech normal and activity/motor behavior normal APPEARANCE: Yes grossly normal ATTITUDE: Yes calm ACTIVITY/MOTOR BEHAVIOR: Yes appropriate eye contact and No psychomotor agitation SPEECH: Yes normal speech MOOD & AFFECT: Yes euthymic mood THOUGHT PROCESS: normal thought process THOUGHT CONTENT: Yes normal thought content ATTENTION/CONCENTRATION: Yes attention grossly intact and Yes concentration grossly intact MEMORY/COGNITION: Yes memory grossly intact and Yes cognition grossly intact INSIGHT: insight good JUDGEMENT: judgment good MDM - Psych Lab Data: Labs: Lab Results 10/03/19 10/03/19 10/03/19 Range/Units 19:20 19:33 19:33 WBC 9.1 (4.0-10.0) 10^3/ uL RBC 4.57 (4.1-5.3) 10^6/u L Hgb 13.3 (11.5-15.3) g/dL Hct 41.3 (37.0-47.0) % MCV 90.4 (81-99) fL MCH 29.1 (28.0-34.0) pg MCHC 32.2 (30.0-36.0) g/dL RDW 15.1 (12.1-15.1) % Plt Count 270 (130-400) 10^3/c mm MPV 10.5 H (7.4-10.4) fL Neut % (Auto) 54.2 % Lymph % (Auto) 31.6 % [place] % (Auto) 9.3 % Eos % (Auto) 3.8 % Baso % (Auto) 0.9 % Neut # (Auto) 4.9 (1.8-7.7) 10^3/u L Lymph # (Auto) 2.9 (0.8-4.8) 10^3/u L [place] # (Auto) 0.8 (0.2-0.9) 10^3/u L Eos # (Auto) 0.3 (0.0-0.8) 10^3/u L Baso # (Auto) 0.1 (0.0-0.1) 10^3/u L Nucleated RBC % (a uto) 0 % Nucleated RBCs # 0.0 /100WBC Sodium 139 (136-145) mmol/L Potassium 3.9 (3.5-5.1) mmol/L Chloride 104 (98-107) mmol/L Carbon Dioxide 24 (22-29) mmol/L Anion Gap 14.9 (5-19) BUN 16 (6-20) mg/dL Creatinine 0.9 (0.5-0.9) mg/dL GFR Calculation 66.0 L (90-130) mL/min Glucose 96 (65-115) mg/dL Calculated Osmolal ity 284 L (285-295) mOsm/k g Calcium 9.3 (8.5-10.5) mg/dL Total Bilirubin 0.2 (0.15-1.2) mg/dL AST 9 (0-32) U/L ALT 6 (0-33) U/L Alkaline Phosphata se 122 H (35-105) IU/L Total Protein 6.0 L (6.6-8.7) g/dL Albumin 3.7 (3.5-5.2) g/dL Globulin 2.3 (1.3-4.6) g/dL Salicylates < 0.3 L (3-10) mg/dL Urine Opiates Scre en Negative (Negative) ng/mL Acetaminophen < 10.0 L (10-30) ug/mL Ur Barbiturates Sc reen Negative (Negative) ng/mL Ur Phencyclidine S crn Positive H (Negative) ng/mL Ur Amphetamines Sc reen Negative (Negative) ng/mL U Benzodiazepines Scrn Negative (Negative) ng/mL Urine Cocaine Scre en Negative (Negative) ng/mL U Marijuana (THC) Screen Negative (Negative) ng/mL Ethyl Alcohol < 10 (0-10) mg/dL Discharge Plan Discharge Patient Disposition: Psych Hosp/Unit w Plan Readm Clinical Impression: Suicidal ideation Condition: Stable Prescriptions: No Action albuterol sulfate 2.5 mg /3 mL (0.083 %) solution for nebulization 2.5 mg INHALATION TID PRN (Reason: Cough) Qty: 180 RF: 1 nystatin 100,000 unit/gram powder 1 applic TOPICAL BID Qty: 60 RF: 3 nitrofurantoin monohyd/m-cryst [Macrobid] 100 mg capsule 100 mg PO BID RF: 0 trospium 20 mg tablet 20 mg PO BID Qty: 60 RF: 3 polyethylene glycol 3350 [Miralax] 17 gram/dose powder 17 gm PO DAILY PRN (Reason: constipation) RF: 0 pantoprazole [Protonix] 40 mg tablet,delayed release (DR/EC) 40 mg PO DAILY Qty: 30 RF: 5 trazodone 100 mg tablet 200 mg PO BEDTIME 30 Days Qty: 60 RF: 3 hydroxyzine pamoate [Vistaril] 50 mg capsule 50 mg PO TID RF: 0 sucralfate [Carafate] 1 gram tablet 1 gm PO Q6H Qty: 120 RF: 0 aripiprazole [Abilify] 5 mg tablet 5 mg PO DAILY Qty: 30 RF: 1 venlafaxine 50 mg tablet 25 mg PO BID Qty: 30 RF: 0 Ingrezza 80 mg capsule 80 mg PO DAILY Qty: 30 RF: 2 lamotrigine 200 mg tablet 200 mg PO DAILY RF: 0 Trelegy Ellipta 100-62.5-25 mcg blister with device 1 inh INHALATION DAILY RF: 0 hydroxyzine pamoate 100 mg Capsule 100 mg PO BEDTIME RF: 0 promethazine [Promethegan] 25 mg suppository 25 mg [place] Q12H PRN (Reason: Nausea And Vomiting) RF: 0 Referrals: Dara Tavera FNP [Primary Care Provider] - Coding Level of Care Code ED Senior Cytotechnologist for Chg Fwd Exam Detailed
[2019-10-03 19:33] VITALS: BP 132/58; PULSE 78; RESP 16; O2SAT 96
[2019-10-03 19:38] LABS: Basophils # 0.1 10^3/uL (0.0-0.1); Basophils % 0.9 %; Eosinophils # 0.3 10^3/uL (0.0-0.8); Eosinophils % 3.8 %; Hematocrit 41.3 % (37.0-47.0); Hemoglobin 13.3 g/dL (11.5-15.3); Lymphocytes # 2.9 10^3/uL (0.8-4.8); Lymphocytes % 31.6 %; Mean Corpuscular HGB Conc 32.2 g/dL (30.0-36.0); Mean Corpuscular Hemoglobin 29.1 pg (28.0-34.0); Mean Corpuscular Volume 90.4 fL (81-99); Mean Platelet Volume 10.5 fL (7.4-10.4); Monocytes # 0.8 10^3/uL (0.2-0.9); Monocytes % 9.3 %; Neutrophils # 4.9 10^3/uL (1.8-7.7); Neutrophils % 54.2 %; Nucleated Red Blood Cells % 0 %; Platelet Count 270 10^3/cmm (130-400); Red Blood Count 4.57 10^6/uL (4.1-5.3); Red Cell Distribution Width 15.1 % (12.1-15.1); White Blood Count 9.1 10^3/uL (4.0-10.0)
[2019-10-03] MEDS: LORazepam 1 mg Tablet 0.5 MG PO (19:48)
[2019-10-03 19:56] LABS: Acetaminophen < 10.0 ug/mL (10-30); Alanine Aminotransferase 6 U/L (0-33); Albumin Level 3.7 g/dL (3.5-5.2); Alkaline Phosphatase 122 IU/L (35-105); Anion Gap 14.9 (5-19); Aspartate Amino Transferase 9 U/L (0-32); Blood Urea Nitrogen 16 mg/dL (6-20); Calcium 9.3 mg/dL (8.5-10.5); Carbon Dioxide 24 mmol/L (22-29); Chloride 104 mmol/L (98-107); Globulin 2.3 g/dL (1.3-4.6); Glucose 96 mg/dL (65-115); Osmolality Calculated 284 mOsm/kg (285-295); Potassium 3.9 mmol/L (3.5-5.1); Sodium 139 mmol/L (136-145); Total Bilirubin 0.2 mg/dL (0.15-1.2)
[2019-10-03 20:29] LABS: Amphetamines Screen Urine Negative (Negative); Barbiturates Screen Urine Negative (Negative); Benzodiazepines Screen Urine Negative (Negative); Cocaine Screen Urine Negative (Negative); Opiate Screen Urine Negative (Negative); PCP Screen Urine Positive (Negative); THC Screen Urine Negative (Negative)
[2019-10-03 20:30] VITALS: BP 106/67; PULSE 94; RESP 16; O2SAT 95
[2019-10-03 20:30] LABS: Slide Review Slide Review Perform
[2019-10-03 20:33] LABS: Alcohol Level < 10 mg/dL (0-10); Salicylate < 0.3 mg/dL (3-10)
[2019-10-03 21:25] VITALS: BP 142/78; PULSE 68; RESP 16; O2SAT 99
[2019-10-03 22:00] VITALS: BP 93/63; PULSE 84; RESP 18; TEMP 36.4; O2SAT 96
[2019-10-03] MEDS: sucralfate 1 gm Tablet PO (23:26)
[2019-10-04 00:43] VITALS: PULSE 90; RESP 16; O2SAT 95
[2019-10-04] MEDS: sucralfate 1 gm Tablet PO ×4 (05:20→22:43)
[2019-10-04 06:00] VITALS: BP 112/69; PULSE 81; RESP 17; TEMP 37.1; O2SAT 94
[2019-10-04] MEDS: ARIPiprazole 10 mg Tablet 5 MG PO (08:34)
[2019-10-04] MEDS: pantoprazole DR 40 mg Tablet PO (08:34)
[2019-10-04] MEDS: nitrofurantoin SR (BID) 100 mg Capsule PO ×2 (08:34→17:04)
[2019-10-04] MEDS: lamoTRIgine 100 mg Tablet 200 MG PO (08:35)
[2019-10-04 09:16] VITALS: PULSE 92; RESP 17; O2SAT 94
[2019-10-04 14:00] VITALS: BP 97/67; PULSE 88; RESP 20; TEMP 36.7; O2SAT 96
[2019-10-04] MEDS: LORazepam 1 mg Tablet PO (15:40)
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
[2019-10-04] MEDS: trazodone 100 mg Tablet 200 MG PO (20:32)
[2019-10-04] MEDS: hyDROXYzine 25 mg Capsule 100 MG PO (20:32)
[2019-10-04 22:00] VITALS: BP 101/62; PULSE 63; RESP 17; TEMP 36.6; O2SAT 95
[2019-10-04 22:52] VITALS: PULSE 89; RESP 18; O2SAT 95
[2019-10-05 06:00] VITALS: BP 113/64; PULSE 74; RESP 17; TEMP 36.7; O2SAT 93
[2019-10-05] MEDS: sucralfate 1 gm Tablet PO ×2 (06:13→11:21)
[2019-10-05] MEDS: nitrofurantoin SR (BID) 100 mg Capsule PO (08:16)
[2019-10-05] MEDS: lamoTRIgine 100 mg Tablet 200 MG PO (08:16)
[2019-10-05] MEDS: pantoprazole DR 40 mg Tablet PO (08:16)
[2019-10-05] MEDS: ARIPiprazole 10 mg Tablet 5 MG PO (08:17)
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
[2019-10-05 10:45] VITALS: BP 113/64; PULSE 74; RESP 17; TEMP 36.7; O2SAT 93
== END 2019-10-05 11:47 | disposition home or self-care (01) | DRG 882 ==
LOC: ER 20:47 → NP 21:23
PROVIDERS: Admitting Provider Psychiatry & Neurology Psychiatry; Emergency Provider Physician Assistant; Family Provider Registered Nurse; PCP Registered Nurse; Visit Provider Psychiatry & Neurology Psychiatry
DX: F43.24 Adjustment disorder with disturbance of conduct (principal); R45.851 Suicidal ideations; F17.210 Nicotine dependence, cigarettes, uncomplicated; Z91.5 Personal history of self-harm; Z91.410 Personal history of adult physical and sexual abuse; F12.10 Cannabis abuse, uncomplicated; F41.9 Anxiety disorder, unspecified; Z99.81 Dependence on supplemental oxygen
CPT/HCPCS: 12345; 80053; 80306; 80307; 85025; 99284

== ENCOUNTER → 2019-10-17 08:22 | Outpatient (BNVA) | payer MEDICARE, MEDICAID, SELFPAY | PROVIDERS: Family Provider Registered Nurse; PCP Registered Nurse; Visit Provider Nurse Practitioner | DX: F25.0 Schizoaffective disorder, bipolar type (principal); F60.3 Borderline personality disorder; F17.218 Nicotine dependence, cigarettes, with other nicotine-induced disorders | CPT/HCPCS: 99214 ==

== ENCOUNTER 2019-10-22 17:10 | Emergency (ER) | payer MEDICARE, MEDICAID, SELFPAY ==
[2019-10-22 17:27] VITALS: BP 124/83; PULSE 100; RESP 18; TEMP 36.4; O2SAT 95; BMI 30.7
== END 2019-10-22 17:39 | disposition left against medical advice (07) ==
LOC: ER 17:15
PROVIDERS: Emergency Provider Physician Assistant; Family Provider Registered Nurse; PCP Registered Nurse
DX: Z53.21 Procedure and treatment not carried out due to patient leaving prior to being seen by health care provider (principal)
CPT/HCPCS: 99281

== ENCOUNTER 2019-10-29 01:24 | Emergency (ER) | payer MEDICARE, MEDICAID, SELFPAY ==
[2019-10-29 01:34] VITALS: BP 105/71; PULSE 80; RESP 14; TEMP 36.8; O2SAT 95; BMI 30.7
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
[2019-10-29 02:56] LABS: Basophils # 0.1 10^3/uL (0.0-0.1); Basophils % 0.7 %; Eosinophils # 0.2 10^3/uL (0.0-0.8); Eosinophils % 2.2 %; Hematocrit 41.7 % (37.0-47.0); Hemoglobin 13.6 g/dL (11.5-15.3); Lymphocytes # 2.6 10^3/uL (0.8-4.8); Mean Corpuscular HGB Conc 32.6 g/dL (30.0-36.0); Mean Corpuscular Hemoglobin 28.5 pg (28.0-34.0); Mean Corpuscular Volume 87.4 fL (81-99); Mean Platelet Volume 10.1 fL (7.4-10.4); Monocytes # 0.8 10^3/uL (0.2-0.9); Monocytes % 7.7 %; Neutrophils % 65.1 %; Nucleated Red Blood Cells % 0 %; Platelet Count 250 10^3/cmm (130-400); Red Blood Count 4.77 10^6/uL (4.1-5.3); Red Cell Distribution Width 15.8 % (12.1-15.1); White Blood Count 10.8 10^3/uL (4.0-10.0)
[2019-10-29 03:10] LABS: Acetaminophen < 10.0 ug/mL (10-30); Alanine Aminotransferase 9 U/L (0-33); Alkaline Phosphatase 116 IU/L (35-105); Anion Gap 14.7 (5-19); Aspartate Amino Transferase 11 U/L (0-32); Blood Urea Nitrogen 18 mg/dL (6-20); Calcium 9.9 mg/dL (8.5-10.5); Carbon Dioxide 21 mmol/L (22-29); Chloride 105 mmol/L (98-107); Globulin 2.7 g/dL (1.3-4.6); Glucose 104 mg/dL (65-115); Osmolality Calculated 281 mOsm/kg (285-295); Potassium 3.7 mmol/L (3.5-5.1); Sodium 137 mmol/L (136-145); Total Bilirubin 0.2 mg/dL (0.15-1.2); Total Protein 6.7 g/dL (6.6-8.7)
[2019-10-29 03:19] LABS: Alcohol Level < 10 mg/dL (0-10); Salicylate < 0.3 mg/dL (3-10)
[2019-10-29 04:29] VITALS: BP 111/74; PULSE 107; RESP 16; O2SAT 97
== END 2019-10-29 04:35 | disposition home or self-care (01) ==
PROVIDERS: Emergency Medicine; Emergency Provider Physician Assistant; PCP Registered Nurse
DX: F32.9 Major depressive disorder, single episode, unspecified (principal); F41.9 Anxiety disorder, unspecified; F17.210 Nicotine dependence, cigarettes, uncomplicated; Z79.899 Other long term (current) drug therapy
CPT/HCPCS: 12345; 80053; 80307; 85025; 99281; 99282; 99283

== ENCOUNTER 2019-11-05 22:13 | Emergency (ER) | payer MEDICARE, MEDICAID, SELFPAY ==
[2019-11-05 22:14] VITALS: BP 128/69; PULSE 81; RESP 18; O2SAT 96; BMI 30.7
--- NOTE | 2019-11-05 22:15 | ECG_ITS ---
Measurements Intervals [place] Rate: 76 P: 55 [place]: 156 QRS: 34 QRSD: 107 T: 50 QT: 417 QTc: 470 SINUS RHYTHM Compared to ECG 09/27/2019 16:58:49 No significant changes Electronically Signed On 11-06-2019 15:42:11 CDT by Temo Tony M.D. [email or web address]
--- NOTE | 2019-11-05 22:18 | W.ED.CHESTPA ---
HPI - Chest Pain General: Chief Complaint: Chest Pain Stated Complaint: CP Time Seen by Provider: 11/05/19 22:15 Source: patient and EMS Mode of arrival: EMS Limitations: no limitations History of Present Illness: HPI narrative: Latesha is a 53-year-old female who is well-known to the ER states she has had chest pain over the last 2 hours. She states she has had this chest pain ongoing since August. She states it is a pressure type pain. She denies any worsening or improving factors. MD complaint: chest pain Onset (ago): hour(s) Timing of current episode: constant Onset: during rest Pain location: substernal Pain radiation: none Severity: moderate Quality: tightness Relieving factors: nothing Exacerbating factors: nothing Associated symptoms: Deny abdominal pain, dyspnea, fever(s), nausea or vomiting Review of Systems Const: Denies: fever(s), chills, body aches or change in appetite Eyes: Denies: blurry vision or eye discomfort ENMT: Denies: throat pain or dental pain Card: Reports: chest pain Resp: Denies: dyspnea GI: Denies: abdominal pain, nausea, vomiting or diarrhea : Denies: dysuria Musc: Denies: neck pain or back pain Skin/Breast: Denies: rash Neuro: Denies: headache(s) Psych: Denies: depression [place]/Lymph: Denies: easy bruising All/Imm: Denies: urticaria PFSH ED PFSH: Medical History Bladder stone Borderline personality disorder Chronic anxiety Chronic cystitis with hematuria Foreign body in bladder Hemoptysis Neurogenic bladder Nicotine dependence, cigarettes, with other nicotine-induced disorders Oxygen dependent Schizoaffective disorder, bipolar type Urgency incontinence Surgical History H/O: hysterectomy History of appendectomy History of breast biopsy History of ureter stent Hx of cholecystectomy S/P bronchoscopy with biopsy Family History Other Asthma Cancer Diabetes Heart disease Social History Smoking and tobacco status: current every day smoker cigarettes Years cigarettes smoked: 26 Quit status (tobacco): considering quitting Smoking risk assessment/counseling performed?: Yes Alcohol intake: never Lives independently: Yes Household members: spouse Housing: House Marital status: Number of children: 3 Current occupational status: disabled History of recent travel: No Current gender identity: Female Female Reproductive History: Date of last menstrual period: 06/19/89 Physical Exam Const: COMMON NORMALS: no acute distress, patient oriented x3 and healthy appearing HENMT: COMMON NORMALS: normocephalic and atraumatic HEAD & SCALP: normocephalic and atraumatic Eye: COMMON NORMALS: Equal, round and reactive pupils present and EOMs intact bilaterally PUPIL: Yes Equal, round and reactive pupils present Neck/C-Spine: COMMON NORMALS: full ROM and supple Chest: COMMONS NORMALS: normal inspection of the chest and normal palpation of entire chest wall Resp: COMMON NORMALS: normal respiratory effort, No retractions, No use of accessory muscles and clear to auscultation bilaterally AUSCULTATION: clear to auscultation bilaterally Cardio: COMMON NORMALS: regular rate, regular rhythm and No murmurs present (Cardio) RATE: regular rate RHYTHM: regular rhythm GI: COMMON NORMALS: Normal to inspection, nondistended, normoactive bowel sounds present, Soft to palpation, non-tender and no masses PALPATION: Yes Soft to palpation Extremity: COMMON NORMALS: normal to inspection and full ROM Neuro: COMMON NORMALS: patient oriented x3, moves all extremities and no focal motor deficits Psych: COMMON NORMALS: mental status grossly normal, Normal thought process present and cooperative THOUGHT PROCESS: Normal thought process present Skin: COMMON NORMALS: no rashes or lesions noted and no wounds GENERAL SKIN EXAM: no rashes or lesions noted Course Vital Signs: Vital signs: Vital Signs Pulse Rate 81 11/05/19 23:52 Respiratory Rate 18 11/05/19 23:52 Blood Pressure 105/60 11/05/19 23:52 Pulse Oximetry 96 11/05/19 23:52 MDM - Chest Pain MDM Narrative: Medical decision making narrative: Patient presents with chest pain that is chronic in nature. Initial troponin here are normal and EKG as well. Patient refused to stay for 2-hour troponin or chest x-ray. She states that she feels improved and would just like to go home at this time. She is to return if worsening. Lab Data: Labs: Lab Results 11/05/19 11/05/19 11/05/19 Range/Units 22:38 22:38 22:38 WBC 8.9 (4.0-10.0) 10^3/ uL RBC 4.35 (4.1-5.3) 10^6/u L Hgb 12.7 (11.5-15.3) g/dL Hct 38.1 (37.0-47.0) % MCV 87.6 (81-99) fL MCH 29.2 (28.0-34.0) pg MCHC 33.3 (30.0-36.0) g/dL RDW 16.0 H (12.1-15.1) % Plt Count 221 (130-400) 10^3/c mm MPV 10.1 (7.4-10.4) fL Neut % (Auto) 57.2 % Lymph % (Auto) 28.9 % [place] % (Auto) 9.0 % Eos % (Auto) 3.6 % Baso % (Auto) 1.0 % Neut # (Auto) 5.1 (1.8-7.7) 10^3/u L Lymph # (Auto) 2.6 (0.8-4.8) 10^3/u L [place] # (Auto) 0.8 (0.2-0.9) 10^3/u L Eos # (Auto) 0.3 (0.0-0.8) 10^3/u L Baso # (Auto) 0.1 (0.0-0.1) 10^3/u L Nucleated RBC % (a uto) 0 % Nucleated RBCs # 0.0 /100WBC Sodium 139 (136-145) mmol/L Potassium 3.8 (3.5-5.1) mmol/L Chloride 103 (98-107) mmol/L Carbon Dioxide 23 (22-29) mmol/L Anion Gap 16.8 (5-19) BUN 13 (6-20) mg/dL Creatinine 0.8 (0.5-0.9) mg/dL GFR Calculation 75.6 L (90-130) mL/min Glucose 112 (65-115) mg/dL Calculated Osmolal ity 285 (285-295) mOsm/k g Calcium 8.9 (8.5-10.5) mg/dL Total Bilirubin 0.2 (0.15-1.2) mg/dL AST 12 (0-32) U/L ALT 9 (0-33) U/L Alkaline Phosphata se 106 H (35-105) IU/L Troponin T Baselin e 6 (0-10) ng/mL Total Protein 6.0 L (6.6-8.7) g/dL Albumin 4.0 (3.5-5.2) g/dL Globulin 2.0 (1.3-4.6) g/dL EKG Data^: EKG 1: Attestation: I personally reviewed and interpreted this EKG as follows: EKG interpretation date: 11/05/19 EKG interpretation time: 22:33 Interpretation: nsr hr [address] or t wave abnormalities qrs 107 qtc 447 Discharge Plan Discharge Patient Disposition: Home, Self-Care Clinical Impression: Chest pain Condition: Stable Prescriptions: No Action Ingrezza 80 mg capsule 80 mg PO DAILY 1 Days RF: 2 venlafaxine 50 mg tablet 50 mg PO BID RF: 0 polyethylene glycol 3350 [Miralax] 17 gram/dose powder 17 gm PO DAILY PRN (Reason: constipation) RF: 0 lamotrigine 200 mg tablet See Rx Instructions .ROUTE .COMPLEX Qty: 90 RF: 0 hydroxyzine pamoate [Vistaril] 50 mg capsule 50 mg PO TID Qty: 90 RF: 1 Trelegy Ellipta 100-62.5-25 mcg blister with device 1 inh INHALATION DAILY RF: 0 hydroxyzine pamoate 100 mg Capsule 100 mg PO BEDTIME RF: 0 promethazine [Promethegan] 25 mg suppository 25 mg [place] Q12H PRN (Reason: Nausea And Vomiting) RF: 0 lorazepam 0.5 mg Tablet 0.5 mg PO DAILY PRN (Reason: Anxiety) Qty: 30 RF: 0 albuterol sulfate 2.5 mg /3 mL (0.083 %) solution for nebulization 2.5 mg INHALATION TID PRN (Reason: Cough) 1 Days RF: 1 Carafate 1 gram tablet 1 gm PO Q6H 1 Days RF: 0 trazodone 100 mg tablet 200 mg PO BEDTIME 30 Days RF: 3 Protonix 40 mg tablet,delayed release (DR/EC) 40 mg PO DAILY 1 Days RF: 5 nystatin 100,000 unit/gram powder 1 applic TOPICAL BID 1 Days RF: 3 Abilify 5 mg tablet 5 mg PO DAILY 1 Days RF: 1 trospium 20 mg tablet 20 mg PO BID 1 Days RF: 3 Discharge Orders: Discharge Order (Routine); Ordered 11/05/19 Ordered By: Damien Urbina Referrals: Dara Tavera FNP [Primary Care Provider] - 1-3 days Discharge Diet: Advance as tolerated Discharge Activity: Resume usual activity Patient Instructions: Chest Pain (ED) Discharge Date/Time: 11/05/19 23:53 Coding Level of Care Code ED Police Officer Crime Prevention for Chg Fwd Exam Comprehensive
[2019-11-05 22:44] LABS: Basophils # 0.1 10^3/uL (0.0-0.1); Eosinophils # 0.3 10^3/uL (0.0-0.8); Eosinophils % 3.6 %; Hematocrit 38.1 % (37.0-47.0); Hemoglobin 12.7 g/dL (11.5-15.3); Lymphocytes # 2.6 10^3/uL (0.8-4.8); Lymphocytes % 28.9 %; Mean Corpuscular HGB Conc 33.3 g/dL (30.0-36.0); Mean Corpuscular Hemoglobin 29.2 pg (28.0-34.0); Mean Corpuscular Volume 87.6 fL (81-99); Mean Platelet Volume 10.1 fL (7.4-10.4); Monocytes # 0.8 10^3/uL (0.2-0.9); Neutrophils # 5.1 10^3/uL (1.8-7.7); Neutrophils % 57.2 %; Nucleated Red Blood Cells % 0 %; Platelet Count 221 10^3/cmm (130-400); Red Blood Count 4.35 10^6/uL (4.1-5.3); White Blood Count 8.9 10^3/uL (4.0-10.0)
[2019-11-05 23:03] LABS: Alanine Aminotransferase 9 U/L (0-33); Alkaline Phosphatase 106 IU/L (35-105); Anion Gap 16.8 (5-19); Aspartate Amino Transferase 12 U/L (0-32); Blood Urea Nitrogen 13 mg/dL (6-20); Calcium 8.9 mg/dL (8.5-10.5); Carbon Dioxide 23 mmol/L (22-29); Chloride 103 mmol/L (98-107); Glomerular Filtration Rate 75.6 mL/min (90-130); Glucose 112 mg/dL (65-115); Osmolality Calculated 285 mOsm/kg (285-295); Potassium 3.8 mmol/L (3.5-5.1); Sodium 139 mmol/L (136-145); Total Bilirubin 0.2 mg/dL (0.15-1.2)
[2019-11-05 23:05] LABS: Troponin(5th) Baseline 6 ng/mL (0-10)
[2019-11-05 23:52] VITALS: BP 105/60; PULSE 81; RESP 18; O2SAT 96
== END 2019-11-05 23:53 | disposition home or self-care (01) ==
PROVIDERS: Emergency Provider Emergency Medicine; PCP Registered Nurse
DX: R07.9 Chest pain, unspecified (principal); F17.210 Nicotine dependence, cigarettes, uncomplicated
CPT/HCPCS: 12345; 36415; 80053; 84484; 85025; 93005; 99281; 99284

== ENCOUNTER → 2019-11-06 08:18 | Outpatient (BNVA) | payer MEDICARE, MEDICAID, SELFPAY | PROVIDERS: PCP Registered Nurse; Visit Provider Nurse Practitioner | DX: F41.9 Anxiety disorder, unspecified (principal); F25.0 Schizoaffective disorder, bipolar type; F60.3 Borderline personality disorder; F17.218 Nicotine dependence, cigarettes, with other nicotine-induced disorders | CPT/HCPCS: 99214 ==

== ENCOUNTER → 2019-11-07 08:32 | Outpatient (BNVA) | payer MEDICARE, MEDICAID, SELFPAY | PROVIDERS: PCP Registered Nurse; Visit Provider Social Worker | DX: F25.0 Schizoaffective disorder, bipolar type (principal); F60.3 Borderline personality disorder | CPT/HCPCS: 90832 ==

== ENCOUNTER 2019-11-08 14:22 | Emergency (ER) | payer MEDICARE, MEDICAID, SELFPAY ==
[2019-11-08 14:28] VITALS: BP 139/61; PULSE 92; RESP 18; TEMP 36.8; O2SAT 94; BMI 29.1
[2019-11-08 15:02] VITALS: RESP 18
[2019-11-08 15:17] LABS: Basophils # 0.1 10^3/uL (0.0-0.1); Basophils % 0.9 %; Eosinophils # 0.2 10^3/uL (0.0-0.8); Eosinophils % 2.2 %; Hematocrit 41.6 % (37.0-47.0); Hemoglobin 13.9 g/dL (11.5-15.3); Lymphocytes # 2.2 10^3/uL (0.8-4.8); Lymphocytes % 24.2 %; Mean Corpuscular HGB Conc 33.4 g/dL (30.0-36.0); Mean Corpuscular Hemoglobin 28.8 pg (28.0-34.0); Mean Corpuscular Volume 86.1 fL (81-99); Mean Platelet Volume 10.3 fL (7.4-10.4); Monocytes # 0.7 10^3/uL (0.2-0.9); Neutrophils # 6.1 10^3/uL (1.8-7.7); Neutrophils % 65.4 %; Nucleated Red Blood Cells % 0 %; Platelet Count 202 10^3/cmm (130-400); Red Blood Count 4.83 10^6/uL (4.1-5.3); Red Cell Distribution Width 16.1 % (12.1-15.1); White Blood Count 9.3 10^3/uL (4.0-10.0)
[2019-11-08] MEDS: ondansetron 2 mg/ML SDV 2 mL 4 MG IVP (15:30)
[2019-11-08 15:31] LABS: Lactate (Lactic Acid level) 0.9 mmol/L (0.5-2.2)
[2019-11-08 15:32] LABS: Alanine Aminotransferase 11 U/L (0-33); Albumin Level 4.2 g/dL (3.5-5.2); Alkaline Phosphatase 133 IU/L (35-105); Anion Gap 17.2 (5-19); Blood Urea Nitrogen 9 mg/dL (6-20); Calcium 9.1 mg/dL (8.5-10.5); Carbon Dioxide 20 mmol/L (22-29); Chloride 101 mmol/L (98-107); Globulin 2.3 g/dL (1.3-4.6); Glomerular Filtration Rate 75.6 mL/min (90-130); Glucose 105 mg/dL (65-115); Lipase 35 U/L (13-60); Osmolality Calculated 274 mOsm/kg (285-295); Potassium 4.2 mmol/L (3.5-5.1); Sodium 134 mmol/L (136-145); Total Bilirubin 0.2 mg/dL (0.15-1.2); Total Protein 6.5 g/dL (6.6-8.7)
[2019-11-08 15:53] LABS: Slide Review Slide Review Perform
[2019-11-08] MEDS: sodium chloride 0.9% 1,000 ML 999 ML IV (15:56)
[2019-11-08 16:25] LABS: Aspartate Amino Transferase 16 U/L (0-32)
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
[2019-11-08] MEDS: LORazepam 2 mg/mL INJ 1 mL 1 MG IVP (17:12)
[2019-11-08] MEDS: HYDROcodone-acetaminophen 5-325 mg Tablet 1 TAB PO (17:53)
[2019-11-08 18:07] VITALS: BP 130/60; PULSE 90; RESP 17; O2SAT 94
== END 2019-11-08 18:08 | disposition home or self-care (01) ==
PROVIDERS: Emergency Provider Emergency Medicine; PCP Registered Nurse
DX: K59.00 Constipation, unspecified (principal); F17.210 Nicotine dependence, cigarettes, uncomplicated
CPT/HCPCS: 12345; 36415; 45915; 80053; 83605; 83690; 85025; 96361; 96374; 96375; 99283; J2060; J2405; J7030

== ENCOUNTER 2019-12-05 23:05 | Inpatient (IN) | payer MEDICARE, MEDICAID, SELFPAY ==
[2019-12-05 23:06] VITALS: BP 134/87; PULSE 76; RESP 18; TEMP 36.7; O2SAT 96; BMI 30.7
--- NOTE | 2019-12-05 23:09 | ECG_ITS ---
[facility] ED Test Date: 2019-12-05 Pat Name: Latesha Wilhelm Department: Room: 129 Gender: Female [employer]ester [employer]: ASHELY : 1965 Requested By: Ann Meyers Order Number: [id number] Alice MD: Temo Tony M.D. Measurements Intervals [place] Rate: 64 P: 59 AR: 156 QRS: 72 QRSD: 96 T: 65 QT: 421 QTc: 437 Interpretive Statements SINUS RHYTHM POSSIBLE LEFT ATRIAL ENLARGEMENT [-0.1mV P WAVE IN V1/V2] INCOMPLETE RIGHT BUNDLE BRANCH BLOCK [90+ ms QRS DURATION, TERMINAL R IN V1/V2, 40+ ms S IN I/aVL/V4/V5/V6] Compared to ECG 11/05/2019 22:33:25 Incomplete right bundle-branch block now present Electronically Signed On 12-06-2019 7:55:42 CDT by Temo Tony M.D. [id number]
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
[2019-12-05 23:45] LABS: Amphetamines Screen Urine Negative (Negative); Barbiturates Screen Urine Negative (Negative); Benzodiazepines Screen Urine Negative (Negative); Cocaine Screen Urine Negative (Negative); Opiate Screen Urine Negative (Negative); PCP Screen Urine Negative (Negative); THC Screen Urine Negative (Negative)
[2019-12-05 23:48] LABS: Basophils # 0.1 10^3/uL (0.0-0.1); Basophils % 0.3 %; Eosinophils # 0.1 10^3/uL (0.0-0.8); Eosinophils % 0.5 %; Hematocrit 44.7 % (37.0-47.0); Hemoglobin 13.9 g/dL (11.5-15.3); Lymphocytes # 2.5 10^3/uL (0.8-4.8); Lymphocytes % 12.5 %; Mean Corpuscular HGB Conc 31.1 g/dL (30.0-36.0); Mean Corpuscular Volume 93.1 fL (81-99); Mean Platelet Volume 11.1 fL (7.4-10.4); Monocytes # 1.4 10^3/uL (0.2-0.9); Monocytes % 6.9 %; Neutrophils % 79.5 %; Nucleated Red Blood Cells % 0 %; Platelet Count 298 10^3/cmm (130-400); Red Cell Distribution Width 17.5 % (12.1-15.1); White Blood Count 20.1 10^3/uL (4.0-10.0)
[2019-12-06 00:35] LABS: HCG, Serum Qual Negative (Negative)
[2019-12-06 00:49] LABS: Alanine Aminotransferase 7 U/L (0-33); Albumin Level 4.1 g/dL (3.5-5.2); Alkaline Phosphatase 112 IU/L (35-105); Anion Gap 17.8 (5-19); Aspartate Amino Transferase 12 U/L (0-32); Blood Urea Nitrogen 16 mg/dL (6-20); Calcium 9.5 mg/dL (8.5-10.5); Carbon Dioxide 20 mmol/L (22-29); Chloride 105 mmol/L (98-107); Globulin 1.6 g/dL (1.3-4.6); Glomerular Filtration Rate 65.8 mL/min (90-130); Glucose 135 mg/dL (65-115); Osmolality Calculated 286 mOsm/kg (285-295); Phenytoin Dilantin 0.8 ug/mL (10-20); Potassium 3.8 mmol/L (3.5-5.1); Sodium 139 mmol/L (136-145); Thyroid Stimulating Hormone 0.82 uIU/mL (0.27-4.20); Total Bilirubin 0.2 mg/dL (0.15-1.2); Total Protein 5.7 g/dL (6.6-8.7); Valproic Acid Level 2.8 ug/mL (50-100)
[2019-12-06 00:52] LABS: Acetaminophen < 5.0 ug/mL (10-30); Alcohol Level < 10 mg/dL (0-10); Salicylate < 0.3 mg/dL (3-10)
[2019-12-06 00:53] LABS: Lithium 0.1 mmol/L (0.6-1.2)
--- NOTE | 2019-12-06 00:53 | XR_ITS ---
WS: [id number] XR chest 1V portable [id number] REASON FOR EXAM: Hallucinations/leukocytosis FINDINGS: One view chest There is arteriosclerotic changes in the arch the aorta. Comparisons were made to September 27, 2019. The heart mediastinum were normal. The peripheral lung show no active pneumonia, pleural effusion, pulmonary edema. The hilum and apices are normal. XR/XR chest 1V portable [id number] IMPRESSION: Negative chest for acute findings.
[2019-12-06 01:11] VITALS: BP 124/72; PULSE 74; RESP 16; TEMP 36.6; O2SAT 96
[2019-12-06 01:31] LABS: ABG PCO2 37.8 mmHg (35-45); Base Excess ABG -1.4 mmol/L (-2.0-2.0); Blood Gas Allen Test POS; Blood Gas Sample Type ARTERIAL; HCO3 ABG 23.2 mmol/L (22-26); Oxygen Device ROOM AIR; PO2 ABG 85.3 mmHg (80.0-100.0)
[2019-12-06 01:31] LABS: Lactic Sepsis W/Reflex 2.5 mmol/L (0.5-2.2)
[2019-12-06 01:32] LABS: Arterial Blood Gas Hematocrit 42.1 % (37-47)
--- NOTE | 2019-12-06 01:36 | CTR_ITS ---
PROCEDURE INFORMATION: Exam: CT Abdomen And Pelvis With Contrast Exam date and time: 12/06/2019 3:08 AM Age: 54 years old Clinical indication: Abdominal pain; Prior surgery; Surgery type: Gb, appy, bladder TECHNIQUE: Imaging protocol: Computed tomography of the abdomen and pelvis with intravenous contrast. Radiation optimization: All CT scans at this facility use at least one of these dose optimization techniques: automated exposure control; mA and/or kV adjustment per patient size (includes targeted exams where dose is matched to clinical indication); or iterative reconstruction. Contrast material: OMNI 300; Contrast volume: 95 ml; Contrast route: INTRAVENOUS (IV); COMPARISON: CT chest abd pel w con* 08/04/2019 2:27 AM RADIATION DOSE METRICS: Total DLP (mGy-cm): 1261.71 FINDINGS: Liver: No mass. Gallbladder and bile ducts: No calcified stones. No ductal dilation. Pancreas: No ductal dilation. Spleen: No splenomegaly. Adrenals: No mass. Kidneys and ureters: No hydronephrosis. Stomach and bowel: No obstruction. No mucosal thickening. Appendix: The appendix is not identified. Intraperitoneal space: No free air. No significant fluid collection. Vasculature: The superior mesenteric vein, portal vein and splenic vein are patent. No aortic aneurysm. Lymph nodes: No enlarged lymph nodes. Bladder: Unremarkable as visualized. Reproductive: Status post hysterectomy. Bones/joints: Multilevel degenerative changes. T11-T12 vertebral body fusion. No acute fracture. Soft tissues: Unremarkable. CT/CT abdomen pelvis w con* [id number] IMPRESSION: No acute findings. Radiation Dose CTDIVOL = (mGy): DLP = 1261.71 (mGy-cm)
[2019-12-06 01:46] LABS: Bacteria Urine TRACE; Bilirubin Urine Neg (NEGATIVE); Blood Urine Neg (Negative); Glucose Urine UA Norm (Normal); Ketones Urine Negative (Negative); Leukocyte Esterase Urine Negative (Negative); Nitrate Urine Negative (Negative); Protein Urine Neg (Negative); Specific Gravity, Urine 1.015 (1.005-1.030); Squamous Epithelial Cell Urine 0-4 (0-5); Urine Appearance Clear (CLEAR); Urine Color Yellow (Yellow); Urobilinogen Urine Norm (Negative); WBC Urine RARE /hpf (0-5); pH Urine 6 (5-7)
[2019-12-06 02:01] LABS: Troponin(5th) Baseline 6 ng/L (0-10)
[2019-12-06] MEDS: sodium chloride 0.9% 1,000 ML 999 ML IV (02:17)
[2019-12-06] MEDS: levofloxacin-dextrose 5 % 750 MG/150 ML PREMIX 150 MG IV (02:18)
[2019-12-06 02:59] LABS: Troponin 5 2HR Delta 0 ABS# (0-10)
[2019-12-06 03:02] LABS: Reflex Lactate Order REFLEX LACTIC ORDERD
[2019-12-06] MEDS: iohexol 300 mg/mL 100 mL Btl IV (03:30)
[2019-12-06 03:38] LABS: Lactic Acid level (Lactate) 0.9 mmol/L (0.5-2.2)
[2019-12-06] MEDS: acetaminophen 500 mg Tablet 1000 MG PO (04:56)
[2019-12-06 06:00] VITALS: BP 114/77; PULSE 67; RESP 16; TEMP 36.3; O2SAT 98
[2019-12-06 07:02] LABS: Troponin 5 6HR Delta 0 ng/L (0-12)
[2019-12-06] MEDS: OLANZapine 5 mg ODT PO (10:08)
--- NOTE | 2019-12-06 10:10 | PC.NURSE ---
PRN ZYPREXA ZYDIS ZYPREXA ZYDIS 5MG PO PER PATIENT C/O HALLUCINATIONS. WILL CONTINUE TO MONITOR FOR MEDICATION EFFECTIVENESS.
--- NOTE | 2019-12-06 11:00 | PC.NURSE ---
PRN ZYPREXA ZYDIS FOLLOW UP MEDICATION EFFECTIVE. NO FURTHER C/O ANXIETY/HALLUCINATIONS.
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
[2019-12-06 14:00] VITALS: BP 131/85; PULSE 71; RESP 20; TEMP 36.4; O2SAT 99
[2019-12-06] MEDS: lamoTRIgine 100 mg Tablet 200 MG PO (17:44)
[2019-12-06] MEDS: ARIPiprazole 10 mg Tablet 5 MG PO (17:59)
[2019-12-06] MEDS: trazodone 100 mg Tablet PO (20:13)
[2019-12-06] MEDS: hyDROXYzine 25 mg Capsule 100 MG PO (20:13)
[2019-12-06] MEDS: LORazepam 0.5 mg Tablet PO (20:13)
[2019-12-06 20:41] VITALS: BP 97/59; PULSE 67; RESP 17; TEMP 36.9; O2SAT 97
[2019-12-07 06:00] VITALS: BP 128/76; PULSE 72; RESP 17; TEMP 36.7; O2SAT 91
[2019-12-07] MEDS: aspirin 81 mg EC Tablet PO (09:10)
[2019-12-07] MEDS: lamoTRIgine 100 mg Tablet 200 MG PO (09:10)
[2019-12-07] MEDS: loratadine 10 mg Tablet PO (09:10)
[2019-12-07] MEDS: pantoprazole DR 40 mg Tablet PO (09:10)
[2019-12-07] MEDS: ARIPiprazole 10 mg Tablet 5 MG PO (09:10)
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
[2019-12-07 10:29] VITALS: BP 128/76; PULSE 72; RESP 17; TEMP 36.7; O2SAT 91
--- NOTE | 2019-12-09 12:42 | PC.RESP ---
SMOKING CESSATION AND PULMONARY REHAB INFORMATION SENT TO PATIENT.
== END 2019-12-07 12:05 | disposition home or self-care (01) | DRG 885 ==
LOC: ER 23:40 → NP 23:45
PROVIDERS: Emergency Medicine; Admitting Provider Psychiatry & Neurology Psychiatry; PCP Registered Nurse; Visit Provider Psychiatry & Neurology Psychiatry
DX: F25.0 Schizoaffective disorder, bipolar type (principal); F60.3 Borderline personality disorder; F41.9 Anxiety disorder, unspecified; N30.21 Other chronic cystitis with hematuria; N31.9 Neuromuscular dysfunction of bladder, unspecified; Z87.891 Personal history of nicotine dependence; Z99.81 Dependence on supplemental oxygen
CPT/HCPCS: 12345; 36415; 36600; 71045; 74177; 80053; 80156; 80164; 80178; 80185; 80306; 80307; 81001; 82803; 83605; 84443; 84484; 84703; 85025; 87040; 93005; 99284; J1956; J7030; Q9967

== ENCOUNTER 2019-12-14 10:22 | Emergency (ER) | payer MEDICARE, MEDICAID, SELFPAY ==
[2019-12-14 10:24] VITALS: BP 126/76; PULSE 83; RESP 18; TEMP 36.8; O2SAT 97; BMI 30.7
[2019-12-14 10:31] VITALS: RESP 18
[2019-12-14 10:41] VITALS: PULSE 85; RESP 18; O2SAT 98
[2019-12-14] MEDS: ipratropium-albuterol 3 mL Neb INHALATION (10:41)
--- NOTE | 2019-12-14 10:41 | XRR_ITS ---
PROCEDURE INFORMATION: Exam: XR Chest, 1 View Exam date and time: 12/14/2019 11:00 AM Age: 54 years old Clinical indication: Cough TECHNIQUE: Imaging protocol: XR of the chest Views: 1 view. COMPARISON: CR XR chest 1V portable [id number] 12/06/2019 1:10 AM FINDINGS: Lungs: Lungs are clear bilaterally. Pleural space: No pleural effusion. No pneumothorax. Heart/Mediastinum: Stable mild enlargement of the cardiac silhouette. Mediastinal contours are unremarkable. Vasculature: Stable vascular calcifications in the aorta. Bones/joints: Degenerative changes in the spine. XR/XR chest 1V portable [id number] IMPRESSION: No acute cardiopulmonary process.
[2019-12-14 10:47] VITALS: PULSE 88
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
[2019-12-14 11:37] LABS: Basophils # 0.1 10^3/uL (0.0-0.1); Basophils % 0.4 %; Eosinophils # 0.2 10^3/uL (0.0-0.8); Eosinophils % 0.9 %; Hematocrit 42.9 % (37.0-47.0); Hemoglobin 13.7 g/dL (11.5-15.3); Lymphocytes # 3.8 10^3/uL (0.8-4.8); Lymphocytes % 16.4 %; Mean Corpuscular HGB Conc 31.9 g/dL (30.0-36.0); Mean Corpuscular Hemoglobin 29.1 pg (28.0-34.0); Mean Corpuscular Volume 91.1 fL (81-99); Mean Platelet Volume 9.9 fL (7.4-10.4); Monocytes # 1.5 10^3/uL (0.2-0.9); Monocytes % 6.4 %; Neutrophils # 17.6 10^3/uL (1.8-7.7); Neutrophils % 75.5 %; Nucleated Red Blood Cells % 0 %; Platelet Count 274 10^3/cmm (130-400); Red Blood Count 4.71 10^6/uL (4.1-5.3); White Blood Count 23.3 10^3/uL (4.0-10.0)
[2019-12-14] MEDS: methylPREDNISolone (DEPO) 80 MG/ML INJ 1 mL IM (11:38)
[2019-12-14] MEDS: azithromycin 250 mg Tablet 500 MG PO (11:38)
[2019-12-14 11:46] LABS: Alanine Aminotransferase 10 U/L (0-33); Alkaline Phosphatase 114 IU/L (35-105); Aspartate Amino Transferase 12 U/L (0-32); Blood Urea Nitrogen 16 mg/dL (6-20); Calcium 9.6 mg/dL (8.5-10.5); Carbon Dioxide 22 mmol/L (22-29); Chloride 103 mmol/L (98-107); Globulin 2.1 g/dL (1.3-4.6); Glomerular Filtration Rate 75.3 mL/min (90-130); Glucose 86 mg/dL (65-115); Osmolality Calculated 284 mOsm/kg (285-295); Sodium 139 mmol/L (136-145); Total Bilirubin 0.3 mg/dL (0.15-1.2); Total Protein 6.1 g/dL (6.6-8.7)
[2019-12-14 12:01] VITALS: BP 108/58; PULSE 88; RESP 18; TEMP 36.8; O2SAT 98
== END 2019-12-14 12:03 | disposition home or self-care (01) ==
PROVIDERS: Emergency Provider Nurse Practitioner Family; PCP Registered Nurse
DX: R05 Cough (principal); R06.02 Shortness of breath; Z79.82 Long term (current) use of aspirin; Z87.891 Personal history of nicotine dependence
CPT/HCPCS: 12345; 36415; 71045; 80053; 85025; 94640; 96372; 99281; 99283; J1040; Q0144

== ENCOUNTER → 2019-12-17 07:47 | Outpatient (BNVA) | payer MEDICARE, MEDICAID, SELFPAY | PROVIDERS: PCP Registered Nurse; Visit Provider Nurse Practitioner | DX: F60.3 Borderline personality disorder (principal); F25.0 Schizoaffective disorder, bipolar type; F17.218 Nicotine dependence, cigarettes, with other nicotine-induced disorders; F90.2 Attention-deficit hyperactivity disorder, combined type; M77.8 Other enthesopathies, not elsewhere classified; R20.0 Anesthesia of skin | CPT/HCPCS: 95908; 99213 ==

== ENCOUNTER 2019-12-23 16:47 | Emergency (ER) | payer MEDICARE, MEDICAID, SELFPAY ==
[2019-12-23 16:48] VITALS: BMI 30.7
[2019-12-23 16:53] VITALS: BP 129/83; PULSE 81; RESP 18; TEMP 36.8; O2SAT 98
--- NOTE | 2019-12-23 16:58 | XRR_ITS ---
PROCEDURE INFORMATION: Exam: XR Chest, 1 View Exam date and time: 12/23/2019 5:28 PM Age: 54 years old Clinical indication: Shortness of breath; Additional info: SOB TECHNIQUE: Imaging protocol: XR of the chest Views: 1 view. COMPARISON: CR (CHEST, ) 12/14/2019 10:52 AM FINDINGS: Lungs: Unremarkable. No consolidation. Pleural space: Unremarkable. No pleural effusion. No pneumothorax. Heart/Mediastinum: Unremarkable. No cardiomegaly. Bones/joints: Unremarkable. XR/XR chest 1V portable [id number] IMPRESSION: No acute findings.
--- NOTE | 2019-12-23 16:58 | ECG_ITS ---
[facility] Test Date: 2019-12-23 Pat Name: Latesha Wilhelm Department: Room: Gender: Female Nurse Intern: : 1965 Requested By: Damien Urbina Order Number: [id number] Alice MD: Kenan Sidhu M.D. Measurements Intervals [place] Rate: 71 P: 59 DE: 148 QRS: 45 QRSD: 105 T: 55 QT: 396 QTc: 433 Interpretive Statements SINUS RHYTHM Compared to ECG 12/05/2019 23:54:32 Incomplete right bundle-branch block no longer present Electronically Signed On 12-23-2019 21:43:41 CDT by Kenan Sidhu M.D. [email or web address] [email or web address] infantsTian[facility]ol[email or web address].[employer]/store/[id number]
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
[2019-12-23 17:14] LABS: Basophils # 0.1 10^3/uL (0.0-0.1); Basophils % 0.4 %; Eosinophils # 0.2 10^3/uL (0.0-0.8); Hematocrit 40.1 % (37.0-47.0); Hemoglobin 13.2 g/dL (11.5-15.3); Lymphocytes # 2.5 10^3/uL (0.8-4.8); Lymphocytes % 21.7 %; Mean Corpuscular HGB Conc 32.9 g/dL (30.0-36.0); Mean Corpuscular Hemoglobin 29.7 pg (28.0-34.0); Mean Corpuscular Volume 90.1 fL (81-99); Mean Platelet Volume 9.7 fL (7.4-10.4); Monocytes % 8.2 %; Neutrophils # 7.7 10^3/uL (1.8-7.7); Nucleated Red Blood Cells % 0 %; Platelet Count 264 10^3/cmm (130-400); Red Blood Count 4.45 10^6/uL (4.1-5.3); Red Cell Distribution Width 17.9 % (12.1-15.1); White Blood Count 11.7 10^3/uL (4.0-10.0)
[2019-12-23 17:27] VITALS: PULSE 82; RESP 18; O2SAT 97
[2019-12-23] MEDS: ipratropium-albuterol 3 mL Neb INHALATION (17:27)
[2019-12-23 17:32] VITALS: RESP 20
[2019-12-23 17:33] VITALS: PULSE 86; RESP 18; O2SAT 97
[2019-12-23] MEDS: LORazepam 2 mg/mL INJ 1 mL 1 MG IVP (17:39)
[2019-12-23 17:45] LABS: Alanine Aminotransferase 9 U/L (0-33); Albumin Level 3.7 g/dL (3.5-5.2); Alkaline Phosphatase 108 IU/L (35-105); Anion Gap 12.7 (5-19); Aspartate Amino Transferase 9 U/L (0-32); Blood Urea Nitrogen 10 mg/dL (6-20); Calcium 8.9 mg/dL (8.5-10.5); Carbon Dioxide 24 mmol/L (22-29); Chloride 108 mmol/L (98-107); Globulin 2.2 g/dL (1.3-4.6); Glomerular Filtration Rate 87.9 mL/min (90-130); Glucose 109 mg/dL (65-115); NT Pro B Type Natriuretic Pept 323 pg/mL (0-125); Osmolality Calculated 289 mOsm/kg (285-295); Potassium 3.7 mmol/L (3.5-5.1); Sodium 141 mmol/L (136-145); Total Bilirubin 0.2 mg/dL (0.15-1.2); Total Protein 5.9 g/dL (6.6-8.7)
--- NOTE | 2019-12-23 18:04 | PC.NURSE ---
pt requesting pain meds
[2019-12-23 18:16] VITALS: BP 124/77; PULSE 82; RESP 18; O2SAT 97
== END 2019-12-23 18:17 | disposition home or self-care (01) ==
PROVIDERS: Emergency Provider Emergency Medicine; PCP Registered Nurse
DX: J44.9 Chronic obstructive pulmonary disease, unspecified (principal); Z79.82 Long term (current) use of aspirin; F17.210 Nicotine dependence, cigarettes, uncomplicated
CPT/HCPCS: 12345; 36415; 71045; 80053; 83880; 85025; 93005; 94640; 96374; 96375; 99283; J2060; J2930

== ENCOUNTER → 2019-12-30 07:45 | Outpatient (BNVA) | payer MEDICARE, MEDICAID, SELFPAY | PROVIDERS: PCP Registered Nurse; Visit Provider Nurse Practitioner | DX: F60.3 Borderline personality disorder (principal); F25.0 Schizoaffective disorder, bipolar type; F17.218 Nicotine dependence, cigarettes, with other nicotine-induced disorders | CPT/HCPCS: 99214 ==

== ENCOUNTER → 2020-01-09 08:35 | Outpatient (BNVA) | payer MEDICARE, MEDICAID, SELFPAY | PROVIDERS: PCP Registered Nurse; Visit Provider Nurse Practitioner | DX: F25.0 Schizoaffective disorder, bipolar type (principal); F60.3 Borderline personality disorder | CPT/HCPCS: 99214 ==

== ENCOUNTER → 2020-01-22 07:37 | Outpatient (BNVA) | payer MEDICARE, MEDICAID, SELFPAY | PROVIDERS: PCP Registered Nurse; Visit Provider Nurse Practitioner | DX: F60.3 Borderline personality disorder (principal); F25.0 Schizoaffective disorder, bipolar type; F17.218 Nicotine dependence, cigarettes, with other nicotine-induced disorders | CPT/HCPCS: 99214 ==

== ENCOUNTER 2020-01-24 19:22 | Inpatient (IN) | payer MEDICARE, MEDICAID, SELFPAY ==
[2020-01-24 19:24] VITALS: BP 117/63; PULSE 95; RESP 20; TEMP 36.8; O2SAT 94; BMI 32.4
--- NOTE | 2020-01-24 19:25 | XRR_ITS ---
PROCEDURE INFORMATION: Exam: XR Chest, 1 View Exam date and time: 01/24/2020 7:48 PM Age: 54 years old Clinical indication: Shortness of breath; Additional info: SOB TECHNIQUE: Imaging protocol: XR of the chest Views: 1 view. COMPARISON: CR XR chest 1V portable [id number] 12/23/2019 5:19 PM FINDINGS: Lungs: Unremarkable. No consolidation. Pleural space: Unremarkable. No pleural effusion. No pneumothorax. Heart/Mediastinum: Unremarkable. No cardiomegaly. Bones/joints: Unremarkable. XR/XR chest 1V portable [id number] IMPRESSION: No acute findings.
--- NOTE | 2020-01-24 19:26 | W.ED.SOB ---
HPI - SOB/Dyspnea General: Chief Complaint: Shortness of Breath/Dyspnea Stated Complaint: sob Time Seen by Provider: 01/24/20 19:23 Source: patient and EMS Mode of arrival: EMS Limitations: no limitations History of Present Illness: HPI Narrative: 54-year-old female who is well-known to the ER who has a long history of COPD states she been having increasing shortness of breath. Patient was seen at [facility] last night and was given breathing treatment and started on steroids. She states she has had no improvement. Patient here has some mild wheezes and is currently 94% on 3 L which she is on 3 L at baseline. She denies any fever. She denies any cough. Denies any vomiting. She states she does improve with breathing treatments. MD elicited complaint: shortness of breath Pertinent past history: COPD Associated symptoms: Deny abdominal pain, chest pain, fever(s), nausea or vomiting Review of Systems Const: Denies: fever(s), chills, body aches or change in appetite Eyes: Denies: blurry vision or eye discomfort ENMT: Denies: throat pain or dental pain Card: Denies: chest pain Resp: Reports: dyspnea and wheezing GI: Denies: abdominal pain, nausea, vomiting or diarrhea : Denies: dysuria Musc: Denies: neck pain or back pain Skin/Breast: Denies: rash Neuro: Denies: headache(s) Psych: Denies: depression Wilbur/Lymph: Denies: easy bruising All/Imm: Denies: urticaria PFSH ED PFSH: Medical History (Updated 01/24/20 @ 22:38 by Damien Urbina MD) Bladder stone Borderline personality disorder Chronic anxiety Chronic back pain greater than 3 months duration Chronic cystitis with hematuria COPD (chronic obstructive pulmonary disease) Foreign body in bladder GERD without esophagitis Hemoptysis Neurogenic bladder Nicotine dependence, cigarettes, with other nicotine-induced disorders Oxygen dependent Schizoaffective disorder, bipolar type Urgency incontinence Surgical History H/O: hysterectomy History of appendectomy History of breast biopsy History of ureter stent Hx of cholecystectomy S/P bronchoscopy with biopsy Family History Other Asthma Cancer Diabetes Heart disease Social History Smoking and tobacco status: former smoker Quit status (tobacco): has quit using tobacco Year quit tobacco: 2020 - 1PPD x 25 Years Alcohol intake: never Lives independently: Yes Household members: spouse and none Marital status: Number of children: 3 Current occupational status: disabled History of recent travel: No Current gender identity: Female Female Reproductive History: Date of last menstrual period: 06/19/95 Physical Exam Const: COMMON NORMALS: no acute distress, patient oriented x3 and healthy appearing HENMT: COMMON NORMALS: normocephalic and atraumatic HEAD & SCALP: normocephalic and atraumatic Eye: COMMON NORMALS: Equal, round and reactive pupils present and EOMs intact bilaterally PUPIL: Yes Equal, round and reactive pupils present Neck/C-Spine: COMMON NORMALS: full ROM and supple Chest: COMMONS NORMALS: normal inspection of the chest and normal palpation of entire chest wall Resp: COMMON NORMALS: normal respiratory effort, No retractions, No use of accessory muscles and clear to auscultation bilaterally AUSCULTATION: clear to auscultation bilaterally and wheezes Cardio: COMMON NORMALS: regular rate, regular rhythm and No murmurs present (Cardio) RATE: regular rate RHYTHM: regular rhythm GI: COMMON NORMALS: Normal to inspection, nondistended, normoactive bowel sounds present, Soft to palpation, non-tender and no masses PALPATION: Yes Soft to palpation Extremity: COMMON NORMALS: normal to inspection and full ROM Neuro: COMMON NORMALS: patient oriented x3, moves all extremities and no focal motor deficits Psych: COMMON NORMALS: mental status grossly normal, Normal thought process present and cooperative THOUGHT PROCESS: Normal thought process present Skin: COMMON NORMALS: no rashes or lesions noted and no wounds GENERAL SKIN EXAM: no rashes or lesions noted Course Vital Signs: Vital signs: Vital Signs Temperature 98.2 F 01/24/20 19:24 Pulse Rate 90 01/24/20 19:47 Respiratory Rate 20 H 01/24/20 19:47 Blood Pressure 117/63 01/24/20 19:24 Pulse Oximetry 93 01/24/20 19:47 MDM - SOB/Dyspnea MDM Narrative: Medical decision making narrative: Latesha presents for shortness of breath a long history of COPD. Patient likely has bronchitis along with COPD exacerbation I spoke to Dr. Medley who is seen patient in the ER and will admit. I gave patient IV antibiotics. Patient does have an elevated white count at 35 which could be due to steroid use but is quite high. We will trend her leukocytosis. Patient has been stable while here. Lab Data: Labs: Lab Results 01/24/20 01/24/20 01/24/20 Range/Units 19:15 19:15 19:15 WBC 35.3 H* (4.0-10.0) 10^3/ uL RBC 4.61 (4.1-5.3) 10^6/u L Hgb 13.0 (11.5-15.3) g/dL Hct 39.8 (37.0-47.0) % MCV 86.3 (81-99) fL MCH 28.2 (28.0-34.0) pg MCHC 32.7 (30.0-36.0) g/dL RDW 15.4 H (12.1-15.1) % Plt Count 336 (130-400) 10^3/c mm MPV 10.3 (7.4-10.4) fL Neut % (Auto) 92.8 % Lymph % (Auto) 3.0 % [place] % (Auto) 3.0 % Eos % (Auto) 0.0 % Baso % (Auto) 0.2 % Neut # (Auto) 32.75 H (1.8-7.7) 10^3/u L Lymph # (Auto) 1.1 (0.8-4.8) 10^3/u L [place] # (Auto) 1.1 H (0.2-0.9) 10^3/u L Eos # (Auto) 0.0 (0.0-0.8) 10^3/u L Baso # (Auto) 0.1 (0.0-0.1) 10^3/u L Nucleated RBC % (a uto) 0 % Nucleated RBCs # 0.0 /100WBC PT 12.50 (12.1-14.9) SECO NDS INR 0.91 (0.8-1.2) Sodium 134 L (136-145) mmol/L Potassium 4.0 (3.5-5.1) mmol/L Chloride 99 (98-107) mmol/L Carbon Dioxide 23 (22-29) mmol/L Anion Gap 16.0 (5-19) BUN 11 (6-20) mg/dL Creatinine 0.9 (0.5-0.9) mg/dL GFR Calculation 65.8 L (90-130) mL/min Glucose 158 H (65-115) mg/dL POC Glucose (70-110) mg/dL Calculated Osmolal ity 277 L (285-295) mOsm/k g Lactate (0.5-2.2) mmol/L Calcium 9.9 (8.5-10.5) mg/dL Total Bilirubin 0.3 (0.15-1.2) mg/dL AST 14 (0-32) U/L ALT 7 (0-33) U/L Alkaline Phosphata se 139 H (35-105) IU/L Troponin T Gen 5 n g/L (0-10) ng/L NT-Pro-B Natriuret Pep 162 H (0-125) pg/mL Total Protein 6.8 (6.6-8.7) g/dL Albumin 4.1 (3.5-5.2) g/dL Globulin 2.7 (1.3-4.6) g/dL SARS-CoV-2 Ag (Rap id) (Negative) 01/24/20 01/24/20 01/24/20 Range/Units 19:15 19:43 20:30 WBC (4.0-10.0) 10^3/ uL RBC (4.1-5.3) 10^6/u L Hgb (11.5-15.3) g/dL Hct (37.0-47.0) % MCV (81-99) fL MCH (28.0-34.0) pg MCHC (30.0-36.0) g/dL RDW (12.1-15.1) % Plt Count (130-400) 10^3/c mm MPV (7.4-10.4) fL Neut % (Auto) % Lymph % (Auto) % [place] % (Auto) % Eos % (Auto) % Baso % (Auto) % Neut # (Auto) (1.8-7.7) 10^3/u L Lymph # (Auto) (0.8-4.8) 10^3/u L [place] # (Auto) (0.2-0.9) 10^3/u L Eos # (Auto) (0.0-0.8) 10^3/u L Baso # (Auto) (0.0-0.1) 10^3/u L Nucleated RBC % (a uto) % Nucleated RBCs # /100WBC PT (12.1-14.9) SECO NDS INR (0.8-1.2) Sodium (136-145) mmol/L Potassium (3.5-5.1) mmol/L Chloride (98-107) mmol/L Carbon Dioxide (22-29) mmol/L Anion Gap (5-19) BUN (6-20) mg/dL Creatinine (0.5-0.9) mg/dL GFR Calculation (90-130) mL/min Glucose (65-115) mg/dL POC Glucose 157 (70-110) mg/dL Calculated Osmolal ity (285-295) mOsm/k g Lactate 1.9 (0.5-2.2) mmol/L Calcium (8.5-10.5) mg/dL Total Bilirubin (0.15-1.2) mg/dL AST (0-32) U/L ALT (0-33) U/L Alkaline Phosphata se (35-105) IU/L Troponin T Gen 5 n g/L 6 (0-10) ng/L NT-Pro-B Natriuret Pep (0-125) pg/mL Total Protein (6.6-8.7) g/dL Albumin (3.5-5.2) g/dL Globulin (1.3-4.6) g/dL SARS-CoV-2 Ag (Rap id) (Negative) 01/24/20 01/24/20 Range/Units 20:40 21:00 WBC 35.8 H* (4.0-10.0) 10^3/ uL RBC 4.68 (4.1-5.3) 10^6/u L Hgb 13.5 (11.5-15.3) g/dL Hct 42.1 (37.0-47.0) % MCV 90.0 (81-99) fL MCH 28.8 (28.0-34.0) pg MCHC 32.1 (30.0-36.0) g/dL RDW 15.9 H (12.1-15.1) % Plt Count 304 (130-400) 10^3/c mm MPV 10.3 (7.4-10.4) fL Neut % (Auto) 70.2 % Lymph % (Auto) 2.3 % [place] % (Auto) 1.3 % Eos % (Auto) 25.5 % Baso % (Auto) 0.2 % Neut # (Auto) 25.08 H (1.8-7.7) 10^3/u L Lymph # (Auto) 0.8 (0.8-4.8) 10^3/u L [place] # (Auto) 0.5 (0.2-0.9) 10^3/u L Eos # (Auto) 9.1 H (0.0-0.8) 10^3/u L Baso # (Auto) 0.1 (0.0-0.1) 10^3/u L Nucleated RBC % (a uto) 0 % Nucleated RBCs # 0.0 /100WBC PT (12.1-14.9) SECO NDS INR (0.8-1.2) Sodium (136-145) mmol/L Potassium (3.5-5.1) mmol/L Chloride (98-107) mmol/L Carbon Dioxide (22-29) mmol/L Anion Gap (5-19) BUN (6-20) mg/dL Creatinine (0.5-0.9) mg/dL GFR Calculation (90-130) mL/min Glucose (65-115) mg/dL POC Glucose (70-110) mg/dL Calculated Osmolal ity (285-295) mOsm/k g Lactate (0.5-2.2) mmol/L Calcium (8.5-10.5) mg/dL Total Bilirubin (0.15-1.2) mg/dL AST (0-32) U/L ALT (0-33) U/L Alkaline Phosphata se (35-105) IU/L Troponin T Gen 5 n g/L (0-10) ng/L NT-Pro-B Natriuret Pep (0-125) pg/mL Total Protein (6.6-8.7) g/dL Albumin (3.5-5.2) g/dL Globulin (1.3-4.6) g/dL SARS-CoV-2 Ag (Rap id) Negative (Negative) Imaging Data^: CXR: Attestation: I personally reviewed and interpreted this imaging study as follows: Radiologist's impression: : 1965 Age/Sex: 54 / F ADM Date: 01/24/20 Loc: ER Room/Bed: Attending Dr: Ordering Provider/Ordering MD: Damien Urbina MD Date of Service: 01/24/20 Procedure(s): XR chest 1V portable [id number] Accession Number(s): [id number] Report Number: [id number] PROCEDURE INFORMATION: Exam: XR Chest, 1 View Exam date and time: 01/24/2020 7:48 PM Age: 54 years old Clinical indication: Shortness of breath; Additional info: SOB TECHNIQUE: Imaging protocol: XR of the chest Views: 1 view. COMPARISON: CR XR chest 1V portable [id number] 12/23/2019 5:19 PM FINDINGS: Lungs: Unremarkable. No consolidation. Pleural space: Unremarkable. No pleural effusion. No pneumothorax. Heart/Mediastinum: Unremarkable. No cardiomegaly. Bones/joints: Unremarkable. XR/XR chest 1V portable [id number] IMPRESSION: No acute findings. Discharge Plan Discharge Patient Disposition: Admitted As Inpatient Clinical Impression: Leukocytosis, COPD exacerbation Condition: Stable Prescriptions: No Action loratadine 10 mg tablet 10 mg PO DAILY Qty: 90 RF: 0 polyethylene glycol 3350 [Miralax] 17 gram/dose powder 17 gm PO DAILY PRN (Reason: constipation) RF: 0 ipratropium-albuterol 0.5 mg-3 mg(2.5 mg base)/3 mL solution for nebulization 3 ml INHALATION Q4H PRN (Reason: Shortness Of Breath) RF: 0 aspirin 81 mg tablet,delayed release (DR/EC) 81 mg PO DAILY RF: 0 methocarbamol [Robaxin-750] 750 mg tablet 750 mg PO TID PRN (Reason: back pain) Qty: 90 RF: 0 lorazepam 0.5 mg tablet 0.5 mg PO DAILY PRN (Reason: Anxiety) 30 Days Qty: 30 RF: 0 venlafaxine 75 mg capsule,extended release 24hr 75 mg PO BID RF: 0 Ingrezza 80 mg capsule 80 mg PO DAILY 1 Days RF: 2 hydroxyzine pamoate 50 mg capsule See Rx Instructions .ROUTE .COMPLEX Qty: 90 RF: 0 quetiapine [Seroquel] 300 mg tablet 300 mg PO .HS Qty: 30 RF: 1 Trelegy Ellipta 100-62.5-25 mcg blister with device 1 inh INHALATION DAILY RF: 0 lamotrigine 200 mg tablet See Rx Instructions .ROUTE .COMPLEX 30 Days Qty: 90 RF: 1 prednisone 20 mg tablet 20 mg PO Q4H RF: 0 hydroxyzine pamoate 100 mg Capsule 100 mg PO BEDTIME RF: 0 promethazine [Promethegan] 25 mg suppository 25 mg [place] Q12H PRN (Reason: Nausea And Vomiting) RF: 0 sucralfate [Carafate] 1 gram tablet 1 gm PO Q6H 1 Days RF: 0 trazodone 100 mg tablet 200 mg PO BEDTIME 30 Days RF: 3 pantoprazole [Protonix] 40 mg tablet,delayed release (DR/EC) 40 mg PO DAILY 1 Days RF: 5 Referrals: Dara Tavera, OSTOMY NURSE [Primary Care Provider] - Coding Level of Care Code ED Floor Associate for [facility] Fwd Exam Comprehensive
[2020-01-24 19:34] LABS: Basophils # 0.1 10^3/uL (0.0-0.1); Basophils % 0.2 %; Hematocrit 39.8 % (37.0-47.0); Lymphocytes # 1.1 10^3/uL (0.8-4.8); Mean Corpuscular HGB Conc 32.7 g/dL (30.0-36.0); Mean Corpuscular Hemoglobin 28.2 pg (28.0-34.0); Mean Corpuscular Volume 86.3 fL (81-99); Mean Platelet Volume 10.3 fL (7.4-10.4); Monocytes # 1.1 10^3/uL (0.2-0.9); Neutrophils # 32.75 10^3/uL (1.8-7.7); Neutrophils % 92.8 %; Nucleated Red Blood Cells % 0 %; Platelet Count 336 10^3/cmm (130-400); Red Blood Count 4.61 10^6/uL (4.1-5.3); Red Cell Distribution Width 15.4 % (12.1-15.1)
[2020-01-24 19:38] LABS: White Blood Count 35.3 10^3/uL (4.0-10.0)
[2020-01-24] MEDS: ipratropium-albuterol 3 mL Neb INHALATION (19:41)
[2020-01-24 19:42] VITALS: PULSE 84; RESP 20; O2SAT 95
[2020-01-24 19:44] LABS: INR 0.91 (0.8-1.2)
[2020-01-24 19:47] VITALS: PULSE 90; RESP 20; O2SAT 93
[2020-01-24 19:49] LABS: Glucose Point of Care 157 mg/dL (70-110)
[2020-01-24 20:01] LABS: Alanine Aminotransferase 7 U/L (0-33); Albumin Level 4.1 g/dL (3.5-5.2); Alkaline Phosphatase 139 IU/L (35-105); Aspartate Amino Transferase 14 U/L (0-32); Blood Urea Nitrogen 11 mg/dL (6-20); Calcium 9.9 mg/dL (8.5-10.5); Carbon Dioxide 23 mmol/L (22-29); Chloride 99 mmol/L (98-107); Globulin 2.7 g/dL (1.3-4.6); Glomerular Filtration Rate 65.8 mL/min (90-130); Glucose 158 mg/dL (65-115); NT Pro B Type Natriuretic Pept 162 pg/mL (0-125); Osmolality Calculated 277 mOsm/kg (285-295); Sodium 134 mmol/L (136-145); Total Bilirubin 0.3 mg/dL (0.15-1.2); Total Protein 6.8 g/dL (6.6-8.7)
[2020-01-24 20:53] LABS: Lactate (Lactic Acid level) 1.9 mmol/L (0.5-2.2)
[2020-01-24 21:10] LABS: SARS Covid-2 Antigen Negative (Negative)
[2020-01-24] MEDS: cefTRIAXone 1,000 MG in sodium chloride 0.9% (plus) 50 ML 100 MG IV (21:16)
[2020-01-24 21:17] LABS: Basophils # 0.1 10^3/uL (0.0-0.1); Basophils % 0.2 %; Eosinophils # 9.1 10^3/uL (0.0-0.8); Eosinophils % 25.5 %; Hematocrit 42.1 % (37.0-47.0); Hemoglobin 13.5 g/dL (11.5-15.3); Lymphocytes # 0.8 10^3/uL (0.8-4.8); Lymphocytes % 2.3 %; Mean Corpuscular HGB Conc 32.1 g/dL (30.0-36.0); Mean Corpuscular Hemoglobin 28.8 pg (28.0-34.0); Mean Platelet Volume 10.3 fL (7.4-10.4); Monocytes # 0.5 10^3/uL (0.2-0.9); Monocytes % 1.3 %; Neutrophils # 25.08 10^3/uL (1.8-7.7); Neutrophils % 70.2 %; Nucleated Red Blood Cells % 0 %; Platelet Count 304 10^3/cmm (130-400); Red Blood Count 4.68 10^6/uL (4.1-5.3); Red Cell Distribution Width 15.9 % (12.1-15.1)
--- NOTE | 2020-01-24 21:43 | ECG_ITS ---
Test Date: 2020-01-25 Pat Name: Latesha Wilhelm Department: Room: 257 Gender: Female Professional Builder: : 1965 Requested By: Meño Zheng Order Number: [id number] Alice MD: Freida Sampson M.D. Measurements Intervals [place] Rate: 77 P: 53 NC: 148 QRS: 11 QRSD: 110 T: 42 QT: 414 QTc: 471 Interpretive Statements SINUS RHYTHM Compared to ECG 12/23/2019 17:27:55 No significant changes Electronically Signed On 01-25-2020 12:41:54 CDT by Freida Sampson M.D. [id number]
--- NOTE | 2020-01-24 21:43 | CTR_ITS ---
PROCEDURE INFORMATION: Exam: CT Angiography Chest With Contrast Exam date and time: 01/24/2020 9:55 PM Age: 54 years old Clinical indication: Other: Hemoptysis; Chest pain; Additional info: Hemoptysis, chest pain TECHNIQUE: Imaging protocol: Computed tomographic angiography of the chest with intravenous contrast. 3D rendering: MIP and/or 3D reconstructed images were created by the technologist. Radiation optimization: All CT scans at this facility use at least one of these dose optimization techniques: automated exposure control; mA and/or kV adjustment per patient size (includes targeted exams where dose is matched to clinical indication); or iterative reconstruction. Contrast material: OMNI 350; Contrast volume: 77 ml; Contrast route: INTRAVENOUS (IV); COMPARISON: CT angio chest PE protcl [id number] 09/07/2019 5:54 PM RADIATION DOSE METRICS: Total DLP (mGy-cm): 666.87 FINDINGS: Pulmonary arteries: No visible pulmonary embolism/pulmonary arterial thrombus. Aorta: The aorta is nonaneurysmal. Mild arterial sclerotic disease. No visible intimal flap or dissection. Thyroid: Suspected small thyroid nodule inferior pole left thyroid measuring 11 mm with peripheral calcifications. Lungs: Bilateral diffuse patchy ground-glass interstitial lung disease consistent with active interstitial pneumonitis. No visible consolidated alveolar airspace disease or atelectasis. No visible evidence of significant restrictive airway disease or air trapping. Solitary bulla left lateral lower lobe. Again note of a tiny subpleural pulmonary nodule right upper lobe stable since prior study. Pleural space: Unremarkable. No pneumothorax. No pleural effusion. Heart: Unremarkable. No cardiomegaly. No pericardial effusion. Lymph nodes: Stable appearing mediastinal and hilar prominent lymph nodes since 09/07/2019. Calcified mediastinal complex in the subcarinal space of antecedent granulomatous disease. Gallbladder and bile ducts: Status post cholecystectomy. Spleen: Splenic calcified granulomas again evident. Bones/joints: Failure segmentation/hemivertebra versus fusion T11 and T12. Age-appropriate degenerative disease. No visible osteolytic or osteoblastic destructive destructive process. Intraosseous vertebral body cavernous hemangioma T6. Soft tissues: Unremarkable. CT/CT angio chest PE protcl [id number] IMPRESSION: 1. No visible pulmonary embolism/pulmonary arterial thrombus. 2. Bilateral diffuse patchy ground-glass interstitial lung disease consistent with active interstitial pneumonitis. 3. Again note of a small subpleural pulmonary nodule right upper lobe.For patients at low risk (minimal or absent history of smoking and of other known risk factors), no routine follow-up is indicated. For patients at high risk (history of smoking or of other known risk factors), consider optional CT at 12 months. (Jerman et al., Fleischner Society, 2017). 4. Small left thyroid nodule. No follow-up is recommended. 5. Stable mediastinal and hilar lymph nodes since last evaluation. 6. Evidence of antecedent granulomatous disease. COMMENTS: Consistent with the [place] [employer]'s Incidental Findings Committee white paper (J Am Ayan Radiol 2015): In patients aged 35 years and older with an incidental thyroid nodule equal to or greater than 1.[address], MRI or extrathyroidal US, further evaluation with dedicated thyroid US is recommended for patients with normal life expectancy and without comorbidities. For smaller nodules without suspicious features, no further evaluation or follow up is recommended. Radiation Dose CTDIVOL = (mGy): DLP = 666.87 (mGy-cm)
--- NOTE | 2020-01-24 21:45 | PM.HP ---
Providers/Chief Complaint Primary Care Provider: AMANDEEP Barclay Chief Complaint: sob History of Present Illness Latesha Wilhelm is a 54 year old female with history of COPD on L reports increasing shortness of breath, wheezing, coughing occasionally productive of sputum for the last 5 days. She reports she is having some right-sided chest discomfort when she takes a deep breath and has been coughing up some dark-colored sputum which she thinks may have some blood in it. She has seen no bright red blood. She reports no nosebleeds. No diarrhea. Occasionally will see a little bright red blood in her stool but this is thought to be secondary to hemorrhoids. Reports colonoscopy in June did not show polyps or other concern. She reports the chest discomfort is sharp. She has been nauseous but not vomiting. No exposure to COVID. No fever. Was seen at [facility] emergency department yesterday and received some steroids by mouth. She reports she did not receive any IV steroids. She has received some Zithromax and Rocephin in the emergency department here at [facility]. Review of Systems General: Reports: 10 or more systems reviewed and unremarkable except in HPI and below Const: Denies: fever(s) or chills Eyes: Denies: change in vision ENMT: Denies: throat pain Card: Reports: chest pain Resp: Reports: dyspnea, productive cough and wheezing GI: Denies: abdominal pain : Denies: flank pain Musc: Denies: neck pain Skin/Breast: Denies: rash Neuro: Denies: headache(s) Psych: Denies: anxiety Endo: Denies: polyuria Wilbur/Lymph: Denies: easy bruising All/Imm: Denies: urticaria Medications/Allergies Home Medications Medication Instructions Recorded Confirmed Last Taken Type polyethylene glycol 3350 17 17 gm PO DAILY PRN gm 06/13/19 01/24/20 01/24/20 History gram/dose oral powder hydroxyzine pamoate 100 mg PO BEDTIME 09/07/19 01/24/20 01/24/20 History promethazine [Promethegan] 25 mg [place] Q12H PRN 09/07/19 01/24/20 09/15/19 History Trelegy Ellipta 1 inh INHALATION DAILY 09/19/19 01/24/20 01/24/20 History pantoprazole [Protonix] 40 mg PO DAILY 1 Days tab 10/05/19 01/24/20 01/24/20 Rx sucralfate [Carafate] 1 gm PO Q6H 1 Days tab 10/05/19 01/24/20 01/24/20 Rx trazodone 200 mg PO BEDTIME 30 Days tab 10/05/19 01/24/20 01/24/20 Rx ipratropium 0.5 mg-albuterol 3 mg 3 ml INHALATION Q4H PRN 11/06/19 01/24/20 01/24/20 History (2.5 mg base)/3 mL nebulization soln loratadine 10 mg tablet 10 mg PO DAILY #90 tab 11/19/19 01/24/20 01/24/20 Rx aspirin 81 mg tablet,delayed 81 mg PO DAILY 11/28/19 01/24/20 01/24/20 History release methocarbamol 750 mg tablet 750 mg PO TID PRN #90 tab 11/28/19 01/24/20 01/24/20 Rx lamotrigine See Rx Instructions .ROUTE 12/07/19 01/24/20 01/24/20 Rx .COMPLEX 30 Days #90 unknown measurement unit code: tablet valbenazine 80 mg capsule 80 mg PO DAILY 1 Days cap 12/30/19 01/24/20 01/24/20 Rx lorazepam 0.5 mg tablet 0.5 mg PO DAILY PRN 30 Days #30 tab 01/09/20 01/24/20 01/24/20 Rx hydroxyzine pamoate 50 mg capsule See Rx Instructions .ROUTE 01/16/20 01/24/20 01/24/20 Rx .COMPLEX #90 cap venlafaxine 75 mg capsule,extended 75 mg PO BID cap 01/21/20 01/24/20 01/24/20 History release 24 hr prednisone 20 mg PO Q4H 01/24/20 01/24/20 01/24/20 History quetiapine 300 mg tablet 300 mg PO .HS #30 tab 01/24/20 01/24/20 01/24/20 Rx Allergies Allergy/AdvReac Type Severity Reaction Status Date / Time Penicillins Allergy Severe ALGY-Anaphy Verified 01/02/20 09:29 laxis sulfamethoxazole Allergy Severe ALGY-Hives Verified 01/02/20 09:29 [From Bactrim] Tetracyclines Allergy Severe ALGY-Hives Verified 01/02/20 09:29 gabapentin [From Neurontin] Allergy Intermediate ADR-Halluci Verified 01/02/20 09:29 nating ketorolac [From Toradol] Allergy Intermediate ALGY-Rash Verified 01/02/20 09:29 lithium Allergy Intermediate ADR-Halluci Verified 01/02/20 09:29 nating fentanyl Allergy Mild rash Verified 01/02/20 09:29 adhesive tape Allergy Rash Verified 01/02/20 09:29 codeine Allergy GI Verified 01/02/20 09:29 haloperidol [From Haldol] Allergy unknown Verified 01/02/20 09:29 quetiapine [From Seroquel] Allergy Unknown Verified 01/02/20 09:29 trimethoprim [From Bactrim] Allergy ALGY-Hives Verified 01/02/20 09:29 ziprasidone [From Geodon] AdvReac Severe ADR-Halluci Verified 01/02/20 09:29 nating influenza virus vac qs AdvReac Mild ADR-Nausea Verified 01/02/20 09:29 19-20(4 yr up) cell derived [From Flucelvax Quad 3604-5816 (PF)] risperidone [From Risperdal] AdvReac ADR-Halluci Verified 01/02/20 09:29 nating PFSH Acute PFSH: Medical History (Updated 01/24/20 @ 22:38 by Damien Urbina MD) Bladder stone Borderline personality disorder Chronic anxiety Chronic back pain greater than 3 months duration Chronic cystitis with hematuria COPD (chronic obstructive pulmonary disease) Foreign body in bladder GERD without esophagitis Hemoptysis Neurogenic bladder Nicotine dependence, cigarettes, with other nicotine-induced disorders Oxygen dependent Schizoaffective disorder, bipolar type Urgency incontinence Surgical History H/O: hysterectomy History of appendectomy History of breast biopsy History of ureter stent Hx of cholecystectomy S/P bronchoscopy with biopsy Family History Other Asthma Cancer Diabetes Heart disease Social History Smoking and tobacco status: former smoker Quit status (tobacco): has quit using tobacco Year quit tobacco: 2020 - 1PPD x 25 Years Alcohol intake: never Lives independently: Yes Household members: spouse and none Marital status: Number of children: 3 Current occupational status: disabled History of recent travel: No Current gender identity: Female Female Reproductive History: Date of last menstrual period: 06/19/95 Vitals/I&O/Wt Last Vital Signs Temp 98.2 F 01/24/20 19:24 Pulse 90 01/24/20 19:47 Resp 20 H 01/24/20 19:47 BP 117/63 01/24/20 19:24 Pulse Ox 93 01/24/20 19:47 Weight last 48 hrs Weight 88.451 kg Physical Exam Narrative: EXAM NARRATIVE: General exam when a in the room is a sleepy white female in no apparent distress. When awakened she asked me for something for chest discomfort. HEENT: Pupils equally round. Oropharynx clear. Neck is supple no lymphadenopathy, thyromegaly Cardiovascular regular rate and rhythm without murmur, no S3 or S4 Lungs bilateral expiratory wheezes, few rhonchi right greater than left Abdomen is soft with positive bowel sounds. No obvious organomegaly was deferred Extremities no cyanosis clubbing or edema, no calf tenderness, cap refill brisk Skin no rash Neuro no focal deficits Data : 01/24/20 21:00 01/24/20 19:15 Micro: Microbiology 01/24/20 20:30 Blood Culture - Preliminary Blood SPECIMEN COLLECTED 01/24/20 20:25 Blood Culture - Preliminary Blood SPECIMEN COLLECTED Other data: I have ordered a troponin which is pending BNP 162 LFTs largely normal with the exception of slight elevation of alkaline phosphatase Rapid COVID test is negative Chest x-ray read as no acute infiltrate I have ordered an EKG which is pending. A&P Assessment and plan (1) COPD (chronic obstructive pulmonary disease): Acute COPD exacerbation is present. Note that she is typically on 2-1/2 L of oxygen at baseline. Prednisone 40 mg daily Counseled tobacco cessation Combivent every 4 hours scheduled Continue inhaled steroid Status: Inactive Qualifiers: COPD type: unspecified COPD Qualified Code(s): J44.9 - Chronic obstructive pulmonary disease, unspecified (2) Leukocytosis: Likely secondary to steroid use. CTA of chest being ordered to rule out pulmonary embolism will delineate if any potential pneumonia is present If no evidence of pneumonia, doxycycline will be initiated for likelihood of acute bronchitis and COPD exacerbation. If pneumonia is present, Rocephin and azithromycin will be continued for outpatient acquired pneumonia and sputum culture will be obtained. CTA is back. Bilateral pneumonitis. Will keep on isolation and do PTC COVID as well. Status: Acute (3) Chest pain: As she reports this has pleuritic quality will check CTA. She also mentioned possible hemoptysis. Note that she has had previous work-up for mediastinal lymphadenopathy with her air traffic control supervisor Dr. Bray, and a negative biopsy August 2019 Check troponin, EKG CTA is now complete and did not show pulmonary embolism. Status: Acute (4) Nicotine dependence, cigarettes, with other nicotine-induced disorders: Counseled abstinence Status: Acute Additional A&P Information Borderline personality disorder, continue home medicines. However list reconciliation is not complete. Will need to confirm this in the morning Chronic back pain History of GERD. Continue Protonix Multiple other medical problems as listed in her past medical history Full code Lovenox for DVT prophylaxis Attestations Medical Necessity Statement*: Will need less than 2 midnight stay for evaluation and treatment of COPD exacerbation. Time Spent in Patient Care: Greater than 35 minutes Coding Level of Care Code Acute Events Director for [facility] Fwd Diagnoses COPD (chronic obstructive pulmonary disease) J44.9 COPD type: unspecified COPD Leukocytosis D72.829 Chest pain R07.9 Nicotine dependence, cigarettes, with other nicotine-induced disorders F17.218
[2020-01-24 21:49] LABS: Slide Review Slide Review Perform; White Blood Count 35.8 10^3/uL (4.0-10.0)
[2020-01-24] MEDS: azithromycin 500 MG in sodium chloride 0.9% 250 ML 250 MG IV (22:05)
[2020-01-24 22:19] LABS: Troponin T (5th) Once 6 ng/L (0-10)
[2020-01-24] MEDS: iohexol 350 mg/mL 100 mL Btl IV (22:19)
[2020-01-24 23:00] VITALS: RESP 18
[2020-01-24] MEDS: morphine 4 mg/mL SDV 1 mL IVP (23:00)
[2020-01-25] VITALS (17 sets, daily range): BP systolic 99–127; BP diastolic 53–78; PULSE 66–91; RESP 17–22; TEMP 36.7–36.9; O2SAT 92–97
--- NOTE | 2020-01-25 00:11 | PC.NURSE ---
pt requesting pain meds. Pain in L side of chest 02/26. notified
[2020-01-25] MEDS: enoxaparin 40 mg/0.4 mL Syringe SUBCUT (01:54)
[2020-01-25] MEDS: sucralfate 1 gm Tablet PO ×4 (01:54→17:49)
[2020-01-25] MEDS: acetaminophen 325 mg Tablet 650 MG PO (02:16)
[2020-01-25] MEDS: HYDROcodone-acetaminophen 5-325 mg Tablet 1 TAB PO ×3 (03:11→12:46)
[2020-01-25 04:10] LABS: Basophils # 0.1 10^3/uL (0.0-0.1); Basophils % 0.2 %; Hematocrit 42.5 % (37.0-47.0); Hemoglobin 12.6 g/dL (11.5-15.3); Lymphocytes % 3.4 %; Mean Corpuscular HGB Conc 29.6 g/dL (30.0-36.0); Mean Corpuscular Volume 94.4 fL (81-99); Monocytes # 0.6 10^3/uL (0.2-0.9); Monocytes % 1.9 %; Neutrophils # 27.78 10^3/uL (1.8-7.7); Neutrophils % 93.9 %; Nucleated Red Blood Cells % 0 %; Platelet Count 313 10^3/cmm (130-400); Red Cell Distribution Width 16.2 % (12.1-15.1); White Blood Count 29.6 10^3/uL (4.0-10.0)
[2020-01-25 04:27] LABS: Alanine Aminotransferase 7 U/L (0-33); Albumin Level 3.8 g/dL (3.5-5.2); Alkaline Phosphatase 138 IU/L (35-105); Anion Gap 15.3 (5-19); Aspartate Amino Transferase 14 U/L (0-32); Blood Urea Nitrogen 11 mg/dL (6-20); Calcium 9.6 mg/dL (8.5-10.5); Carbon Dioxide 22 mmol/L (22-29); Chloride 106 mmol/L (98-107); Globulin 2.6 g/dL (1.3-4.6); Glomerular Filtration Rate 65.8 mL/min (90-130); Glucose 211 mg/dL (65-115); Osmolality Calculated 290 mOsm/kg (285-295); Potassium 4.3 mmol/L (3.5-5.1); Sodium 139 mmol/L (136-145); Total Bilirubin 0.2 mg/dL (0.15-1.2); Total Protein 6.4 g/dL (6.6-8.7)
--- NOTE | 2020-01-25 06:17 | PC.NURSE ---
pt had multiple c/o stabbing chest pain with deep breaths, rating pain 9/10-10/10 pain scale. oral pain meds were given but pt stated her pain had still not been alleviated. pt awake most of night. pt was able to amb to bathroom but seemed to exacerbate her SOB. pt had good urinary output tonight.
[2020-01-25] MEDS: aspirin 81 mg EC Tablet PO (07:20)
[2020-01-25] MEDS: predniSONE 20 mg Tablet 40 MG PO (07:20)
[2020-01-25] MEDS: pantoprazole DR 40 mg Tablet PO (07:20)
[2020-01-25] MEDS: venlafaxine ER (24HR) 75 mg Capsule PO ×2 (07:20→17:48)
[2020-01-25] MEDS: cefTRIAXone 1,000 MG in sodium chloride 0.9% (plus) 50 ML 100 MG IV ×2 (07:21→21:25)
[2020-01-25] MEDS: methocarbamol 750 mg Tablet PO (09:14)
--- NOTE | 2020-01-25 10:35 | ECG_ITS ---
[facility] Test Date: 2020-01-25 Pat Name: Latesha Wilhelm Department: Room: 257 Gender: Female Uke Operator: : 1965 Requested By: Jessy Gagnon Order Number: [id number] Alice MD: Freida Sampson M.D. Measurements Intervals [place] Rate: -1 P: TN: -1 QRS: 0 QRSD: -1 T: 0 QT: -1 QTc: Interpretive Statements NORMAL SINUS RHYTHM WARNING: DATA QUALITY MAY AFFECT INTERPRETATION Compared to ECG 01/25/2020 02:07:43 Sinus rhythm no longer present Electronically Signed On 01-26-2020 8:48:15 CDT by Freida Sampson M.D. [id number]
[2020-01-25] MEDS: morphine 4 mg/mL SDV 1 mL 2 MG IVP ×4 (10:51→23:51)
--- NOTE | 2020-01-25 12:21 | PM.PN ---
Subjective Subjective: Interval history: Overnight labs and H&P reviewed. Currently complaining of intermittent chest pain which is not appropriately relieved, feels similar to her previous episodes that she is been in the hospital. CAT scans have also been reviewed dating back to earlier this year. Medications: Reviewed: Yes Vitals/I&O/Wt Last Vital Signs Temp 98.0 F 01/25/20 10:43 Pulse 82 01/25/20 10:43 Resp 20 H 01/25/20 10:51 BP 99/68 01/25/20 10:43 Pulse Ox 95 01/25/20 10:51 01/24/20 01/25/20 01/25/20 22:59 06:59 14:59 Intake Total 50 / 50 610 / 660 50 / 50 Output Total 200 / 200 Balance 50 / 50 410 / 460 50 / 50 Weight last 48 hrs Weight 89.584 kg Weight 88.451 kg Physical Exam Narrative: EXAM NARRATIVE: GEN: Awake, alert and oriented, no acute distress HEENT: NC in place @3lpm CVS: S1S2 N RS: B/L fine rales on auscultation Abd: Soft, nt/nd , bs+ DITCH CLEANER: no focal neuro deficits EXT: no focal edema, cyanosis or clubbing. Data : 01/25/20 03:45 01/25/20 03:45 Micro: Microbiology 01/24/20 20:30 Blood Culture - Preliminary Blood SPECIMEN COLLECTED 01/24/20 20:25 Blood Culture - Preliminary Blood SPECIMEN COLLECTED A&P Assessment and plan (1) Infiltrate of lung present on imaging of chest: Status: Acute (2) Chest pain: Status: Acute Qualifiers: Chest pain type: unspecified Qualified Code(s): R07.9 - Chest pain, unspecified (3) COPD exacerbation: Status: Acute (4) Leukocytosis: Status: Acute Qualifiers: Leukocytosis type: unspecified Qualified Code(s): D72.829 - Elevated white blood cell count, unspecified Additional A&P Information # Bilateral nonspecific chest infiltrates versus pneumonitis, which on review of prior CAT scans have been dating back to at least July 2019 No specific etiology has been found to date. Patient follows with pulmonology Dr. Bray as an outpatient. She has had an extensive work-up to date which has included bronchoscopy with BAL and lavage. Respiratory viral panels have been negative. Cytology has been negative. AFB smears and cultures have been negative. AFB PCR N/A. Urine histoplasma antigen is negative. Coccidioides serology has been negative. She has also been noted to have mediastinal lymphadenopathy which was initially concerning for metastatic lesion, however on EBUS she has had no evidence of malignancy identified. HIV screen negative from July 2019. JOSE screen negative. There is no history of PE. In terms of an infectious work-up she has undergone an extensive work-up to date. However some differentials that may remain are hypersensitivity pneumonitis from strongyloidosis. Patient has a cat and states that the cat of complex are all on the face. We will go ahead and order strongyloidiasis serology. However given that the sensitivity and specificity of this test is low, given the fact that patient has elevated white blood cell count today with absolute eosinophil count of 9, will go ahead and treat empirically with ivermectin. 15 mg today, repeat a second dose tomorrow. Patient is on intermittent steroids for COPD exacerbations. She estimates that she takes 5-day courses of prednisone about once every few months, however on asking specifically it appears this is more frequent at least 1-2 times a month. No other chronicity of symptoms goes against this diagnosis, it would be worthwhile to exclude pneumocystis nonspecific bilateral groundglass infiltrates. Check sputum PJP PCR. Check serum LDH. Check serum beta glucan. Hold off on empiric treatment for this agent for now until confirmatory testing can be obtained. She is a chronic smoker however denies any h/o vaping. COVID antigen negative, PCR awaited #Chest pain This appears similar to patient's multiple chest pain incidents in the past. Her EKGs are without any acute ST-T wave changes at this present time. Baseline troponin is negative. Morphine as needed. # COPD exacerbation Continue inhaled treatment with DuoNeb and budesonide and prednisone 40 mg daily #Leukocytosis, most likely this is related to steroids that she received 2 days ago when she was at the [facility]. We will continue to trend. No suspicion for infection. CT chest without any new infiltrates or consolidation to suggest pneumonia. Check procalcitonin, if negative will narrow antibiotics. Full code DVT ppx: lovenox Attestations Medical Necessity Statement*: optimization of chest pain and respiratory status Coding Level of Care Code Acute Explosive Operator Supervisor for [facility] Fwd Diagnoses Infiltrate of lung present on imaging of chest R91.8 Chest pain R07.9 Chest pain type: unspecified COPD exacerbation J44.1 Leukocytosis D72.829 Leukocytosis type: unspecified
[2020-01-25 13:07] LABS: Ferritin 81 ng/mL (15-150)
[2020-01-25 13:35] LABS: Troponin T (5th) Once 6 ng/L (0-10)
[2020-01-25] MEDS: ondansetron 2 mg/ML SDV 2 mL 4 MG IVP (13:51)
[2020-01-25 13:53] LABS: Lactate Dehydrogenase 506 U/L (135-214)
[2020-01-25] MEDS: LORazepam 0.5 mg Tablet PO (18:08)
[2020-01-25 18:35] LABS: D Dimer 0.58 ug/mIFEU (0-0.59)
[2020-01-25] MEDS: trazodone 100 mg Tablet 200 MG PO (21:24)
[2020-01-25] MEDS: azithromycin 500 MG in sodium chloride 0.9% 250 ML 250 MG IV (22:02)
[2020-01-26] VITALS (15 sets, daily range): BP systolic 106–134; BP diastolic 68–78; PULSE 71–82; RESP 18–25; TEMP 36.5–37; O2SAT 90–97
[2020-01-26] MEDS: sucralfate 1 gm Tablet PO ×5 (01:19→20:40)
[2020-01-26] MEDS: enoxaparin 40 mg/0.4 mL Syringe SUBCUT (01:19)
[2020-01-26 04:24] LABS: Basophils % 0.1 %; Eosinophils % 0.1 %; Hematocrit 40.1 % (37.0-47.0); Lymphocytes # 2.5 10^3/uL (0.8-4.8); Lymphocytes % 8.4 %; Mean Corpuscular HGB Conc 32.4 g/dL (30.0-36.0); Mean Corpuscular Hemoglobin 28.9 pg (28.0-34.0); Mean Corpuscular Volume 89.1 fL (81-99); Mean Platelet Volume 10.3 fL (7.4-10.4); Monocytes # 1.4 10^3/uL (0.2-0.9); Monocytes % 4.8 %; Neutrophils # 25.49 10^3/uL (1.8-7.7); Neutrophils % 85.8 %; Nucleated Red Blood Cells % 0 %; Platelet Count 302 10^3/cmm (130-400); Red Cell Distribution Width 15.7 % (12.1-15.1); White Blood Count 29.7 10^3/uL (4.0-10.0)
[2020-01-26] MEDS: morphine 4 mg/mL SDV 1 mL 2 MG IVP ×5 (04:24→22:33)
[2020-01-26 05:03] LABS: Alanine Aminotransferase 6 U/L (0-33); Albumin Level 3.5 g/dL (3.5-5.2); Alkaline Phosphatase 128 IU/L (35-105); Anion Gap 9.6 (5-19); Aspartate Amino Transferase 18 U/L (0-32); Blood Urea Nitrogen 15 mg/dL (6-20); Calcium 9.3 mg/dL (8.5-10.5); Carbon Dioxide 28 mmol/L (22-29); Chloride 105 mmol/L (98-107); Globulin 2.6 g/dL (1.3-4.6); Glomerular Filtration Rate 75.3 mL/min (90-130); Glucose 120 mg/dL (65-115); Osmolality Calculated 283 mOsm/kg (285-295); Potassium 4.6 mmol/L (3.5-5.1); Sodium 138 mmol/L (136-145); Total Bilirubin 0.2 mg/dL (0.15-1.2); Total Protein 6.1 g/dL (6.6-8.7)
[2020-01-26] MEDS: predniSONE 20 mg Tablet 40 MG PO (08:30)
[2020-01-26] MEDS: pantoprazole DR 40 mg Tablet PO (08:30)
[2020-01-26] MEDS: cefTRIAXone 1,000 MG in sodium chloride 0.9% (plus) 50 ML 100 MG IV ×2 (08:30→20:40)
[2020-01-26] MEDS: venlafaxine ER (24HR) 75 mg Capsule PO ×2 (08:30→17:34)
[2020-01-26] MEDS: aspirin 81 mg EC Tablet PO (08:30)
[2020-01-26] MEDS: LORazepam 0.5 mg Tablet PO ×2 (11:12→21:27)
--- NOTE | 2020-01-26 16:01 | P.PN_ITS ---
Subjective Subjective: Interval history: No acute events. Continues to complain of similar chest pain which is relieved with morphine. Oxygen requirement of 2.5 L/min today. Medications: Reviewed: Yes Vitals/I&O/Wt Last Vital Signs Temp 98.5 F 01/26/20 15:32 Pulse 76 01/26/20 15:32 Resp 22 H 01/26/20 15:32 BP 106/68 01/26/20 15:32 Pulse Ox 97 01/26/20 15:32 01/26/20 01/26/20 01/26/20 06:59 14:59 22:59 Intake Total 300 / 1950 600 / 600 Output Total 700 / 1800 Balance -400 / 150 600 / 600 Weight last 48 hrs Weight 88.507 kg Weight 89.584 kg Weight 88.451 kg Physical Exam Narrative: EXAM NARRATIVE: GEN: Awake, alert and oriented, no acute distress CVS: S1S2 N RS: CTA B/L Abd: Soft, nt/nd , bs+ COMIC ILLUSTRATOR: no focal neuro deficits Data : 01/26/20 04:05 01/26/20 04:05 Micro: Microbiology 01/25/20 11:07 Gram Stain - Final Sputum - Expectorated Sputum Sputum Culture - Preliminary 01/24/20 20:25 Blood Culture - Preliminary Blood NEGATIVE TO DATE 01/24/20 20:30 Blood Culture - Preliminary Blood NEGATIVE TO DATE A&P Assessment and plan (1) Infiltrate of lung present on imaging of chest: Status: Acute (2) Chest pain: Status: Acute Qualifiers: Chest pain type: unspecified Qualified Code(s): R07.9 - Chest pain, unspecified (3) COPD exacerbation: Status: Acute (4) Leukocytosis: Status: Acute Qualifiers: Leukocytosis type: unspecified Qualified Code(s): D72.829 - Elevated white blood cell count, unspecified Additional A&P Information # Bilateral nonspecific chest infiltrates versus pneumonitis, which on review of prior CAT scans have been dating back to at least July 2019 No specific etiology has been found to date. Patient follows with pulmonology Dr. Bray as an outpatient. She has had an extensive work-up to date which has included bronchoscopy with BAL and lavage. Respiratory viral panels have been negative. Cytology has been negative. AFB smears and cultures have been negative. AFB PCR N/A. Urine histoplasma antigen is negative. Coccidioides serology has been negative. She has also been noted to have mediastinal lymphadenopathy which was initially concerning for metastatic lesion, however on EBUS she has had no evidence of malignancy identified. HIV screen negative from July 2019. JOSE screen negative. There is no history of PE. In terms of an infectious work-up she has undergone an extensive work-up to date. However some differentials that may remain are hypersensitivity pneumonitis from strongyloidosis. Patient has a cat and states that the cat licks her on the face. strongyloidiasis serology pending. However given that the sensitivity and specificity of this test is low, given the fact that patient has elevated white blood cell count today with absolute eosinophil count of 9, will go ahead and treat empirically with ivermectin 15 mg today, repeat second dose pending as this drug is not currently available in the inpatient pharmacy. 1 dose was arranged from outpatient pharmacy, however they are closed today and will likely need to be ordered again tomorrow. - Also excluding pneumocystis pneumonia given that patient is on intermittent steroids for COPD exacerbations. She estimates that she takes 5-day courses of prednisone about once every few months, however on asking specifically it appears this is more frequent at least 1-2 times a month. chronicity of symptoms goes against this diagnosis, it would be worthwhile to exclude pneumocystis nonspecific bilateral groundglass infiltrates. Check sputum PJP PCR. Check serum beta glucan. Serum LDH is elevated at greater than 500 hold off on empiric treatment for this agent for now until confirmatory testing can be obtained as patient otherwise appears to be at baseline. She is a chronic smoker however denies any h/o vaping. COVID antigen negative, PCR awaited #Chest pain This appears similar to patient's multiple chest pain incidents in the past. Her EKGs are without any acute ST-T wave changes at this present time. Baseline troponin is negative. Morphine as needed. # COPD exacerbation Continue inhaled treatment with DuoNeb and budesonide and prednisone 40 mg daily #Leukocytosis, most likely this is related to steroids that she received 2 days ago when she was at the [facility]. We will continue to trend. CT chest without any new infiltrates or consolidation to suggest pneumonia. Check procalcitonin with am labs Full code DVT ppx: lovenox Attestations Medical Necessity Statement*: Awaiting optimization of respiratory status. Coding Level of Care Code Acute Supply Chain Procurement Manager for [facility] Fwd Diagnoses Infiltrate of lung present on imaging of chest R91.8 Chest pain R07.9 Chest pain type: unspecified COPD exacerbation J44.1 Leukocytosis D72.829 Leukocytosis type: unspecified
[2020-01-26 18:40] LABS: Coronavirus Lab Test PTC SEE REPORT
[2020-01-26] MEDS: trazodone 100 mg Tablet 200 MG PO (20:40)
[2020-01-26] MEDS: azithromycin 500 MG in sodium chloride 0.9% 250 ML 250 MG IV (21:28)
[2020-01-27] VITALS (18 sets, daily range): BP systolic 111–139; BP diastolic 66–86; PULSE 67–90; RESP 16–20; TEMP 36.6–36.8; O2SAT 93–99
[2020-01-27] MEDS: sucralfate 1 gm Tablet PO ×4 (01:13→23:30)
[2020-01-27] MEDS: enoxaparin 40 mg/0.4 mL Syringe SUBCUT (01:13)
[2020-01-27] MEDS: morphine 4 mg/mL SDV 1 mL 2 MG IVP ×3 (02:35→21:18)
[2020-01-27 05:55] LABS: Basophils # 0.1 10^3/uL (0.0-0.1); Basophils % 0.5 %; Eosinophils # 0.1 10^3/uL (0.0-0.8); Eosinophils % 0.9 %; Hematocrit 42.2 % (37.0-47.0); Hemoglobin 13.2 g/dL (11.5-15.3); Lymphocytes # 3.7 10^3/uL (0.8-4.8); Lymphocytes % 24.9 %; Mean Corpuscular HGB Conc 31.3 g/dL (30.0-36.0); Mean Corpuscular Hemoglobin 27.6 pg (28.0-34.0); Mean Corpuscular Volume 88.1 fL (81-99); Mean Platelet Volume 10.1 fL (7.4-10.4); Monocytes # 1.2 10^3/uL (0.2-0.9); Neutrophils # 9.57 10^3/uL (1.8-7.7); Neutrophils % 64.5 %; Nucleated Red Blood Cells % 0 %; Platelet Count 301 10^3/cmm (130-400); Red Blood Count 4.79 10^6/uL (4.1-5.3); Red Cell Distribution Width 15.1 % (12.1-15.1); White Blood Count 14.8 10^3/uL (4.0-10.0)
[2020-01-27 06:15] LABS: Alanine Aminotransferase 6 U/L (0-33); Albumin Level 3.5 g/dL (3.5-5.2); Alkaline Phosphatase 112 IU/L (35-105); Anion Gap 12.2 (5-19); Aspartate Amino Transferase 8 U/L (0-32); Blood Urea Nitrogen 16 mg/dL (6-20); Calcium 8.6 mg/dL (8.5-10.5); Carbon Dioxide 27 mmol/L (22-29); Chloride 102 mmol/L (98-107); Globulin 2.9 g/dL (1.3-4.6); Glomerular Filtration Rate 87.9 mL/min (90-130); Glucose 85 mg/dL (65-115); Osmolality Calculated 280 mOsm/kg (285-295); Potassium 4.2 mmol/L (3.5-5.1); Sodium 137 mmol/L (136-145); Total Bilirubin 0.2 mg/dL (0.15-1.2); Total Protein 6.4 g/dL (6.6-8.7)
[2020-01-27 06:24] LABS: Procalcitonin 0.02 ng/mL (0-0.5)
[2020-01-27] MEDS: cefTRIAXone 1,000 MG in sodium chloride 0.9% (plus) 50 ML 100 MG IV ×2 (08:02→21:17)
[2020-01-27] MEDS: predniSONE 20 mg Tablet 40 MG PO (08:03)
[2020-01-27] MEDS: aspirin 81 mg EC Tablet PO (08:04)
[2020-01-27] MEDS: venlafaxine ER (24HR) 75 mg Capsule PO ×2 (08:04→18:18)
[2020-01-27] MEDS: pantoprazole DR 40 mg Tablet PO (08:04)
[2020-01-27] MEDS: LORazepam 0.5 mg Tablet PO (08:20)
--- NOTE | 2020-01-27 10:00 | PC.SOCIAL ---
Pg 2 IMM Explained to pt Pg 2 IMM. Provided pt a copy. No questions voiced. Signed, dated, & timed a copy & placed in chart.
[2020-01-27] MEDS: HYDROcodone-acetaminophen 5-325 mg Tablet 1 TAB PO (12:49)
--- NOTE | 2020-01-27 15:36 | PM.PN ---
Subjective Subjective: Interval history: She has been having some pain in the left side of the chest with deep breaths. Denies cough today, but coughed up some sputum yesterday. Still feeling congested, but with gradual improvement. Palpating the area of complaint on the left side reproduces very sharp tenderness. Vitals/I&O/Wt Last Vital Signs Temp 98.1 F 01/27/20 12:00 Pulse 90 01/27/20 13:10 Resp 18 01/27/20 13:09 BP 137/86 01/27/20 12:00 Pulse Ox 93 01/27/20 13:09 01/27/20 01/27/20 01/27/20 06:59 14:59 22:59 Intake Total 1080 / 1080 Output Total 1200 / 1700 2 / 2 Balance -1200 / -390 1078 / 1078 Weight last 48 hrs Weight 87.713 kg Weight 88.507 kg Physical Exam Const: COMMON NORMALS: no acute distress and patient oriented x3 HENMT: COMMON NORMALS: oropharynx normal Neck/C-Spine: COMMON NORMALS: no JVD Chest: CHEST: Yes tenderness other (Rib/intercostal area of left anterior, mid clavicular/anterior axillary line tenderness on palpation, producing sharp pain.) Resp: COMMON NORMALS: normal respiratory effort AUSCULTATION: wheezes and diminished lung sounds Cardio: COMMON NORMALS: no JVD, regular rhythm, S1 normal heart sound present, S2 normal heart sound present and No murmurs present (Cardio) RHYTHM: regular rhythm HEART SOUNDS: S1 normal heart sound present and S2 normal heart sound present GI: COMMON NORMALS: Normal to inspection, nondistended, normoactive bowel sounds present, Soft to palpation and non-tender PALPATION: Yes Soft to palpation Extremity: COMMON NORMALS: no joint enlargement and no pedal edema Neuro: COMMON NORMALS: patient oriented x3 and moves all extremities Skin: COMMON NORMALS: no rashes or lesions noted GENERAL SKIN EXAM: no rashes or lesions noted Data : 01/27/20 05:00 01/27/20 05:00 Micro: Microbiology 01/25/20 11:07 Gram Stain - Final Sputum - Expectorated Sputum Sputum Culture - Preliminary Staphylococcus aureus A&P Assessment and plan (1) Infiltrate of lung present on imaging of chest: Persistent infiltrates, possible pneumonitis. At this time receiving empiric treatment for possible bacterial pneumonia. Sputum culture is positive for Staphylococcus aureus, and so there is concern for staphylococcal pneumonia at this time. She has been feeling improvement Staphylococcus is not MRSA. She has received extensive work-up previously through her computer discovery teacher. BAL and lavage, viral panels, cytology have been negative. AFB smears and cultures negative. AFB PCR N/A. Urine histoplasma antigen is negative. Coccidioides serology has been negative. She has also been noted to have mediastinal lymphadenopathy which was initially concerning for metastatic lesion, however on EBUS she has had no evidence of malignancy identified. HIV screen negative from July 2019. JOSE screen negative. There is no history of PE. Possibility of hypersensitivity pneumonitis from Strongyloides has been considered. She received empiric dose of ivermectin, and is going to receive second dose today. PCP studies are pending. Beta D glucan pending. She is a chronic smoker however denies any h/o vaping. There is improvement in white count today. Oxygenation is stable on 2 L. She reports at home she is usually on 3. For now continue antibiotics. COVID-19 PCR negative. We will need to resume follow-up with pulmonology. Status: Acute (2) Chest pain: Has some bothersome pruritic/respiration-related sharp pain on the left side of her anterior chest. Troponin and EKG have not been suggestive of acute ischemia. CTA without suggestion of PE. Sharp pain is reproducible on palpation in the area she describes. This appears to be musculoskeletal, possibly related to episodes of cough. At this time she is agreeable for additional treatment with conservative measures, and had received education from her nurse, agreeable to try lidocaine patch to try to reduce need for use of pain medications. Other conservative management with capsaicin cream, BenGay, K pad discussed with her and her nurse. Question of possibly brownish appearing sputum, possibly hemoptysis earlier in the hospitalization. So far without recurrence. Note that she has had previous work-up for mediastinal lymphadenopathy with her computer discovery teacher Dr. Bray, and a negative biopsy August 2019 Status: Acute Qualifiers: Chest pain type: unspecified Qualified Code(s): R07.9 - Chest pain, unspecified (3) COPD exacerbation: Currently still with wheezing, diminished air entry today. Productive cough yesterday, although today denies. Continue prednisone, breathing treatments, antibiotics as above. Oxygen support. Follow-up sputum culture sensitivities. Status: Acute (4) Leukocytosis: Status: Acute Qualifiers: Leukocytosis type: unspecified Qualified Code(s): D72.829 - Elevated white blood cell count, unspecified Additional A&P Information #Leukocytosis, most likely this is related to steroids that she received 2 days ago when she was at the [facility]. Improving. Continue to trend. Procalcitonin not elevated. Minimal alkaline phosphatase elevation: At 112 today. This appears to vary somewhat, although significance is not clear. Reportedly has had negative JOSE, although I do not see this results. Will request. Her autoimmune panel otherwise negative with anti-Mandy 1, SSA, SSB, anti-SEED TECHNICIAN, SCL 70, anti-dsDNA all unremarkable. On CT her liver appeared unremarkable. No other signs of cirrhosis. Will check GGT. Will need additional outpatient follow-up. Full code DVT ppx: lovenox Attestations Medical Necessity Statement*: Continue admission for assessment and management of COPD exacerbation with possible pneumonia, possible pulmonary staphylococcal infection, with underlying chronic lung infiltrates. 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
[2020-01-27 19:57] LABS: Gamma Glutamyl Transferase 23 U/L (5-36)
[2020-01-27] MEDS: trazodone 100 mg Tablet 200 MG PO (21:18)
[2020-01-27] MEDS: azithromycin 500 MG in sodium chloride 0.9% 250 ML 250 MG IV (23:29)
[2020-01-28] VITALS (17 sets, daily range): BP systolic 102–126; BP diastolic 62–76; PULSE 65–86; RESP 14–20; TEMP 36.5–37; O2SAT 94–98
[2020-01-28] MEDS: enoxaparin 40 mg/0.4 mL Syringe SUBCUT (03:15)
[2020-01-28] MEDS: morphine 4 mg/mL SDV 1 mL 2 MG IVP ×2 (03:16→11:23)
[2020-01-28] MEDS: sucralfate 1 gm Tablet PO ×4 (04:41→23:29)
[2020-01-28 05:20] LABS: Basophils # 0.1 10^3/uL (0.0-0.1); Basophils % 0.4 %; Eosinophils # 0.2 10^3/uL (0.0-0.8); Eosinophils % 1.1 %; Hematocrit 44.9 % (37.0-47.0); Hemoglobin 14.2 g/dL (11.5-15.3); Lymphocytes # 3.7 10^3/uL (0.8-4.8); Mean Corpuscular HGB Conc 31.6 g/dL (30.0-36.0); Mean Corpuscular Hemoglobin 28.5 pg (28.0-34.0); Mean Corpuscular Volume 90.2 fL (81-99); Mean Platelet Volume 10.1 fL (7.4-10.4); Monocytes # 1.2 10^3/uL (0.2-0.9); Neutrophils # 9.05 10^3/uL (1.8-7.7); Neutrophils % 63.4 %; Nucleated Red Blood Cells % 0 %; Platelet Count 312 10^3/cmm (130-400); Red Blood Count 4.98 10^6/uL (4.1-5.3); Red Cell Distribution Width 14.7 % (12.1-15.1); White Blood Count 14.3 10^3/uL (4.0-10.0)
[2020-01-28 05:45] LABS: Alanine Aminotransferase 16 U/L (0-33); Albumin Level 3.6 g/dL (3.5-5.2); Alkaline Phosphatase 121 IU/L (35-105); Anion Gap 13.2 (5-19); Aspartate Amino Transferase 17 U/L (0-32); Blood Urea Nitrogen 19 mg/dL (6-20); Calcium 8.8 mg/dL (8.5-10.5); Carbon Dioxide 27 mmol/L (22-29); Chloride 103 mmol/L (98-107); Globulin 3.3 g/dL (1.3-4.6); Glomerular Filtration Rate 75.3 mL/min (90-130); Glucose 101 mg/dL (65-115); Osmolality Calculated 285 mOsm/kg (285-295); Potassium 4.2 mmol/L (3.5-5.1); Sodium 139 mmol/L (136-145); Total Bilirubin 0.2 mg/dL (0.15-1.2); Total Protein 6.9 g/dL (6.6-8.7)
[2020-01-28] MEDS: HYDROcodone-acetaminophen 5-325 mg Tablet 1 TAB PO ×3 (09:01→21:09)
[2020-01-28] MEDS: aspirin 81 mg EC Tablet PO (09:02)
[2020-01-28] MEDS: venlafaxine ER (24HR) 75 mg Capsule PO ×2 (09:02→18:35)
[2020-01-28] MEDS: predniSONE 20 mg Tablet 40 MG PO (09:02)
[2020-01-28] MEDS: cefTRIAXone 1,000 MG in sodium chloride 0.9% (plus) 50 ML 100 MG IV ×2 (09:02→21:08)
[2020-01-28] MEDS: pantoprazole DR 40 mg Tablet PO (09:02)
[2020-01-28] MEDS: lidocaine 5% Patch 1 PATCH TOPICAL ×2 (09:03→21:14)
--- NOTE | 2020-01-28 13:48 | PM.PN ---
Subjective Subjective: Interval history: She states that she is doing so-so , reports some gradual but slow improvement. Some occasional cough. Still some intermittent chest wall pain, worse with cough or deep inspiration. Discussed with her that we had touched base with her employment program representative. Will complete that antimicrobial treatment for staphylococcal infection, and have her follow-up with him in office. Sensitivities unfortunately not be available until at least tomorrow. He will consider any additional imaging when she is following up. She states that she feels safe returning home. Vitals/I&O/Wt Last Vital Signs Temp 98.3 F 01/28/20 11:26 Pulse 77 01/28/20 11:26 Resp 14 01/28/20 11:26 BP 107/68 01/28/20 11:26 Pulse Ox 96 01/28/20 11:26 01/27/20 01/28/20 01/28/20 22:59 06:59 14:59 Intake Total 850 / 1980 300 / 2280 600 / 600 Output Total 2 / 4 Balance 848 / 1976 300 / 2276 600 / 600 Weight last 48 hrs Weight 88.949 kg Weight 87.713 kg Physical Exam Const: COMMON NORMALS: no acute distress and patient oriented x3 HENMT: COMMON NORMALS: oropharynx normal Neck/C-Spine: COMMON NORMALS: no JVD Chest: CHEST: Yes tenderness other (Rib/intercostal area of left anterior, mid clavicular/anterior axillary line tenderness on palpation, producing sharp pain.) Resp: COMMON NORMALS: normal respiratory effort AUSCULTATION: wheezes and diminished lung sounds Cardio: COMMON NORMALS: no JVD, regular rhythm, S1 normal heart sound present, S2 normal heart sound present and No murmurs present (Cardio) RHYTHM: regular rhythm HEART SOUNDS: S1 normal heart sound present and S2 normal heart sound present GI: COMMON NORMALS: Normal to inspection, nondistended, normoactive bowel sounds present, Soft to palpation and non-tender PALPATION: Yes Soft to palpation Extremity: COMMON NORMALS: no joint enlargement and no pedal edema Neuro: COMMON NORMALS: patient oriented x3 and moves all extremities Skin: COMMON NORMALS: no rashes or lesions noted GENERAL SKIN EXAM: no rashes or lesions noted Data : 01/28/20 04:49 01/28/20 04:49 Micro: Microbiology 01/25/20 11:07 Gram Stain - Final Sputum - Expectorated Sputum Sputum Culture - Preliminary Staphylococcus aureus A&P Assessment and plan (1) Infiltrate of lung present on imaging of chest: Will follow up Staphylococcus aureus sensitivities to exclude that it is not MRSA. Clinically she has been responding to Rocephin and azithromycin while in the hospital. We will keep same for now. She is showing gradual improvement. We did touch base with her employment program representative, and he will be expecting to see her in office, no requests for additional studies for now, he will consider what additional imaging and other evaluation may be necessary on follow-up. Persistent infiltrates, possible pneumonitis. At this time receiving empiric treatment for possible bacterial pneumonia. White blood cell count was as high as 35,000 during this hospitalization. Has been trending down, currently down to 14,000. Sputum culture is positive for Staphylococcus aureus, and so there is concern for staphylococcal pneumonia at this time. She has been feeling improvement Staphylococcus is not MRSA. She has received extensive work-up previously through her employment program representative. BAL and lavage, viral panels, cytology have been negative. AFB smears and cultures negative. AFB PCR N/A. Urine histoplasma antigen is negative. Coccidioides serology has been negative. She has also been noted to have mediastinal lymphadenopathy which was initially concerning for metastatic lesion, however on EBUS she has had no evidence of malignancy identified. HIV screen negative from July 2019. JOSE screen reported negative, but I did not see a result. Reordered and is pending. There is no history of PE. Possibility of hypersensitivity pneumonitis from Strongyloides has been considered and she received empiric treatment with 2 doses of ivermectin. There was 1 result on 01/23 with eosinophil reported elevated at 9, however, earlier that day at 7 PM was normal, and subsequently all results within normal. This appears more likely to be a laboratory error. PCP studies are pending. Beta D glucan pending. With her clinical progress, this condition is considered less likely. Extended viral panel is pending. She is a chronic smoker however denies any h/o vaping. There is improvement in white count. Oxygenation is stable on 2 L. She reports at home she is usually on 3. For now continue antibiotics. COVID-19 PCR negative. We will need to resume follow-up with pulmonology. Status: Acute (2) Chest pain: Has some bothersome recurrent pleuritic/respiration-related sharp pain on the left side of her anterior chest, toda reported posterior, with repeat requests for morphine per nursing staff. There are a number of more conservative pain management measures orders, including a lidocaine patch, Tylenol as needed, will renew tramadol. Also requested for K pad, capsaicin, BenGay as needed to help manage intermittent episodes of chest wall pain. Troponin and EKG have not been suggestive of acute ischemia. CTA without suggestion of PE. Sharp pain is reproducible on palpation in the area she describes. This appears to be musculoskeletal, possibly related to episodes of cough. Question of possibly brownish appearing sputum, possibly hemoptysis earlier in the hospitalization. So far without recurrence. Note that she has had previous work-up for mediastinal lymphadenopathy with her employment program representative Dr. Bray, and a negative biopsy August 2019 Due to concern for possible social factors adding to her pain, was questioned, but reports feels safe returning home on discharge. Status: Acute Qualifiers: Chest pain type: unspecified Qualified Code(s): R07.9 - Chest pain, unspecified (3) COPD exacerbation: Today this appears to be better. Still occasional productive cough. On exam today there is no wheezing. Productive cough yesterday, although today denies. We will try to cut down prednisone dose, continue breathing treatments, antibiotics as above. Oxygen support. Follow-up sputum culture sensitivities. Status: Acute (4) Leukocytosis: Status: Acute Qualifiers: Leukocytosis type: unspecified Qualified Code(s): D72.829 - Elevated white blood cell count, unspecified Additional A&P Information #Leukocytosis, most likely this is related to steroids that she received 2 days ago when she was at the [facility]. Improving. Continue to trend. Procalcitonin not elevated. Minimal alkaline phosphatase elevation: At 112 today. This appears to vary somewhat, although significance is not clear. Reportedly has had negative JOSE, although I do not see this results. Will request. Her autoimmune panel otherwise negative with anti-Mandy 1, SSA, SSB, anti-DYE HOUSE VAT WORKER, SCL 70, anti-dsDNA all unremarkable. On CT her liver appeared unremarkable. No other signs of cirrhosis. GGT normal. Bones on CT chest, abdomen pelvis with multilevel degenerative changes, possible fusion T11-12 vertebral bodies. No visualized fracture, lytic or blastic changes. Will need additional outpatient follow-up. Full code DVT ppx: lovenox Attestations Medical Necessity Statement*: Continue admission for assessment management of pneumonia/pneumonitis, Staphylococcus aureus pulmonary infection, COPD as admission, recurrent episodes of chest pain. 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
[2020-01-28] MEDS: LORazepam 0.5 mg Tablet PO (14:20)
[2020-01-28] MEDS: trazodone 100 mg Tablet 200 MG PO (21:08)
[2020-01-28] MEDS: azithromycin 500 MG in sodium chloride 0.9% 250 ML 250 MG IV (23:30)
[2020-01-29] VITALS (10 sets, daily range): BP systolic 103–120; BP diastolic 63–73; PULSE 70–84; RESP 16–20; TEMP 36.6–37.1; O2SAT 96–99
[2020-01-29] MEDS: enoxaparin 40 mg/0.4 mL Syringe SUBCUT (05:02)
[2020-01-29] MEDS: sucralfate 1 gm Tablet PO ×2 (05:03→08:46)
[2020-01-29 06:04] LABS: Basophils % 0.3 %; Eosinophils # 0.2 10^3/uL (0.0-0.8); Eosinophils % 1.4 %; Hematocrit 44.2 % (37.0-47.0); Hemoglobin 13.9 g/dL (11.5-15.3); Lymphocytes # 3.5 10^3/uL (0.8-4.8); Lymphocytes % 28.3 %; Mean Corpuscular HGB Conc 31.4 g/dL (30.0-36.0); Mean Corpuscular Hemoglobin 28.4 pg (28.0-34.0); Mean Corpuscular Volume 90.2 fL (81-99); Monocytes % 7.8 %; Neutrophils # 7.61 10^3/uL (1.8-7.7); Neutrophils % 60.9 %; Nucleated Red Blood Cells % 0 %; Platelet Count 277 10^3/cmm (130-400); Red Cell Distribution Width 14.6 % (12.1-15.1); White Blood Count 12.5 10^3/uL (4.0-10.0)
[2020-01-29 07:08] LABS: Alanine Aminotransferase 16 U/L (0-33); Albumin Level 3.6 g/dL (3.5-5.2); Alkaline Phosphatase 113 IU/L (35-105); Anion Gap 13.2 (5-19); Aspartate Amino Transferase 11 U/L (0-32); Blood Urea Nitrogen 23 mg/dL (6-20); Calcium 9.2 mg/dL (8.5-10.5); Carbon Dioxide 25 mmol/L (22-29); Chloride 104 mmol/L (98-107); Globulin 2.4 g/dL (1.3-4.6); Glomerular Filtration Rate 75.3 mL/min (90-130); Glucose 94 mg/dL (65-115); Osmolality Calculated 282 mOsm/kg (285-295); Potassium 4.2 mmol/L (3.5-5.1); Sodium 138 mmol/L (136-145); Total Bilirubin 0.2 mg/dL (0.15-1.2)
[2020-01-29] MEDS: lidocaine 5% Patch 1 PATCH TOPICAL (08:45)
[2020-01-29] MEDS: aspirin 81 mg EC Tablet PO (08:46)
[2020-01-29] MEDS: LORazepam 0.5 mg Tablet PO (08:46)
[2020-01-29] MEDS: pantoprazole DR 40 mg Tablet PO (08:46)
[2020-01-29] MEDS: venlafaxine ER (24HR) 75 mg Capsule PO (08:46)
[2020-01-29] MEDS: predniSONE 20 mg Tablet PO (08:46)
[2020-01-29] MEDS: cefTRIAXone 1,000 MG in sodium chloride 0.9% (plus) 50 ML 100 MG IV (08:46)
--- NOTE | 2020-01-29 09:25 | PC.SOCIAL ---
IMM Updated Page 2 of IMM updated and given to patient. Initialed, dated, and timed and placed back in chart.
--- NOTE | 2020-01-29 11:06 | XRR_ITS ---
PROCEDURE INFORMATION: Exam: XR Chest, 1 View Exam date and time: 01/29/2020 11:59 AM Age: 54 years old Clinical indication: Condition or disease; Lung condition and disease; Pneumonia; Other: Not specified; Prior surgery; Surgery type: Lung mass; Additional info: Pna follow up, MRSA TECHNIQUE: Imaging protocol: XR of the chest Views: 1 view. COMPARISON: CR XR chest 1V portable [id number] 01/24/2020 7:37 PM FINDINGS: Lungs: Unremarkable. No consolidation. Pleural space: Unremarkable. No pleural effusion. No pneumothorax. Heart/Mediastinum: Unremarkable. No cardiomegaly. Bones/joints: No acute findings. XR/XR chest 1V portable [id number] IMPRESSION: No acute findings.
--- NOTE | 2020-01-29 12:08 | PC.RESP ---
Pulmonary Rehab information sent to patient.
[2020-01-29 12:14] LABS: Anti-Nuclear Antibody Pattern Nuclear, Homogeneous; Anti-Nuclear Antibody Screen POSITIVE (NEGATIVE); Anti-Nuclear Antibody Titer 1:40 titer
--- NOTE | 2020-01-29 14:56 | PM.DCS ---
Discharge Providers Date of Admission: 01/24/20 23:14 Date of Discharge: January 29, 2020 Attending Provider at Admission: Meño Medley MD Attending Provider at Discharge: Rip Driscoll Primary Care Provider: AMANDEEP Barclay Diagnoses at Discharge Discharge Diagnosis (1) Infiltrate of lung present on imaging of chest: Status: Acute (2) Chest pain: Status: Acute Qualifiers: Chest pain type: unspecified Qualified Code(s): R07.9 - Chest pain, unspecified (3) COPD exacerbation: Status: Acute (4) Leukocytosis: Status: Acute Qualifiers: Leukocytosis type: unspecified Qualified Code(s): D72.829 - Elevated white blood cell count, unspecified (5) Alkaline phosphatase elevation: Status: Acute Problem details: Minimal elevation, isolated, with other liver parameters normal, with normal GGT. Consider additional evaluation, including possible bone sources as well. (6) JOSE positive: Status: Acute Problem details: JOSE was tested during this admission, and had just come back positive, with minute elevation at 1:40 titers (negative is <1:40). Significance of this is not clear, but may warrant additional investigation or repetition of the study. Discussed with patient. Please follow-up based on further clinical course. Reason for Visit Reason for Visit: sob Hospital Course Hospital Course: Pleasant 54-year-old lady with history of COPD on 2-1/2-3 L of oxygen by nasal cannula at home, following up with pulmonology in office, having recently quit smoking, was admitted after presenting with increasing shortness of breath, wheezing, coughing, with some sharp chest discomfort in different areas of her chest, without suggestion of acute cardiac ischemia, without finding of PE on CTA, was found to be in COPD exacerbation, and was also seen at [place] emergency department the day prior and started on oral steroid. On CTA [place] admission also found to have bilateral patchy infiltrates, due to which was empirically covered for community-acquired pneumonia with ceftriaxone and azithromycin, and assessed for COVID-19, rapid flu, as well as extended viral panel was sent out as well. Nonspecific bilateral chest infiltrates versus pneumonitis were noted on CT dating to at least July 2019. She had previously had extensive evaluation including bronchoscopy and BAL and lavage, with respiratory viral panels negative, cytology negative, AFB smears and cultures negative, AFB PCR negative. Urine histoplasma antigen negative, Coccidioides serology negative. With noted mediastinal lymphadenopathy, initially concerning for metastatic lesion, however, on EBUS had no evidence of malignancy. HIV screen was negative. JOSE reported previously negative, recheck during this hospitalization and found to be hairline elevated at 1:40 titer with negative <1:40. Significance of this is not clear. She appears to have some persistent mild alkaline phosphatase elevation at 113, with normal other liver parameters, and normal GGT. Additional follow-up of this may need to be considered, considering also possibly bone sources. During this hospitalization on 1 of the lab studies on 01/23 also noted transiently elevated eosinophils, and empirically was treated with ivermectin course consisting of 2 doses for possibility of Strongyloides infection, although eosinophilia was not present shortly before and after the positive test, making this, or perhaps eosinophilic pneumonia probably less likely. She did have beta D glucan sent out during this admission as well. PCP studies were requested as well. These will need to be followed up, although clinically, although LDH was elevated, her progress otherwise did not suggest active PCP infection. She had been a former smoker, having recently quit, denied any vaping. Her white blood cell count did come up quite high during his admission, up to 35,000, however, in part this may have been also secondary to steroid administration. Her clinical condition gradually improved. Her chest pain on evaluation was reproducible on palpation in different areas, and worse with cough, deep breaths, and most likely is musculoskeletal, with improvement with lidocaine patch and conservative measures. Subjectively she continued feeling better. Oxygenation remained good on 2 L nasal cannula which is somewhat less than her usual at home. Sputum culture did eventually grow MRSA. This was discussed with her, and with her professional employer consultant who will be expecting her on close follow-up due to these findings in his office on Monday. Given the clinical improvement on Rocephin and azithromycin despite noted MRSA in culture, also with repeat chest x-ray not showing any progression/necrotizing pneumonia, or other concerning findings, without any other findings to suggest ongoing sepsis, we discussed with her number of options, as well as consideration that the MRSA in the sputum culture appears to more likely represent colonization. We discussed the lower chance that this may be an active infection, although again given continued clinical improvement this appears to be less likely. We discussed risks of this infection not being covered by the antibiotic she is being discharged with, as well as the fact that she will be on a steroid taper on discharge. She verbalized understanding. At this time it is not an option to cover empirically with an oral antibiotic given her allergies to multiple medications, as well as potential interaction with others, and the suspicion is not high enough to subject her to treatment with IV antibiotic currently. She understands to maintain close follow-up with the professional employer consultant, as well as her primary care provider and discuss all of the above during the visits. She understands the risks, and knows to return to ER at any sign of trouble. She otherwise reports that she is feeling much better, and feels good about discharging home. Please see laboratory results, imaging studies and progress notes for full details. Do not hesitate to call with any questions. Physical Exam Const: COMMON NORMALS: no acute distress and patient oriented x3 OTHER: NC on. HENMT: COMMON NORMALS: oropharynx normal Neck/C-Spine: COMMON NORMALS: no JVD Resp: COMMON NORMALS: normal respiratory effort and clear to auscultation bilaterally AUSCULTATION: clear to auscultation bilaterally Cardio: COMMON NORMALS: no JVD, regular rhythm, S1 normal heart sound present, S2 normal heart sound present and No murmurs present (Cardio) RHYTHM: regular rhythm HEART SOUNDS: S1 normal heart sound present and S2 normal heart sound present GI: COMMON NORMALS: Normal to inspection, nondistended, normoactive bowel sounds present, Soft to palpation and non-tender PALPATION: Yes Soft to palpation Extremity: COMMON NORMALS: no joint enlargement and no pedal edema Neuro: COMMON NORMALS: patient oriented x3 and moves all extremities Skin: COMMON NORMALS: no rashes or lesions noted GENERAL SKIN EXAM: no rashes or lesions noted Discharge Data Data Completed and Pending: Completed Studies During Hospitalization Category Date Time Status CT angio chest PE protcl [id number] Urge nt Cat Scan 01/24/20 21:43 Completed XR chest 1V mary ble [id number] Routine Exams 01/29/20 11:06 Completed XR chest 1V mary ble [id number] Urgent Exams 01/24/20 19:25 Completed Pending at discharge Category Date Time Status Blood Culture Sta t Lab 01/24/20 20:30 Results Complete Blood Co unt w/Auto AM LABS Lab 01/30/20 04:00 Ordered Comprehensive Met abolic Panel AM LA BS Lab 01/30/20 04:00 Ordered Enteric Parasite Panel by PCR Routi ne Lab 01/25/20 10:59 Uncollected Miscellaneous Blessing t Routine Lab 01/25/20 11:32 Received Miscellaneous Blessing t Routine Lab 01/25/20 12:10 Received Miscellaneous Blessing t Routine Lab 01/25/20 12:10 Received Respiratory Viral Panel PCR Stat Lab 01/25/20 12:20 Received Labs from last 24 hours 01/29/20 01/29/20 01/27/20 05:20 05:20 05:20 WBC 12.5 H RBC 4.90 Hgb 13.9 Hct 44.2 MCV 90.2 MCH 28.4 MCHC 31.4 RDW 14.6 Plt Count 277 MPV 10.0 Neut % (Auto) 60.9 Lymph % (Auto) 28.3 [place] % (Auto) 7.8 Eos % (Auto) 1.4 Baso % (Auto) 0.3 Neut # (Auto) 7.61 Lymph # (Auto) 3.5 [place] # (Auto) 1.0 H Eos # (Auto) 0.2 Baso # (Auto) 0.0 Nucleated RBC % (a uto) 0 Nucleated RBCs # 0.0 Sodium 138 Potassium 4.2 Chloride 104 Carbon Dioxide 25 Anion Gap 13.2 BUN 23 H Creatinine 0.8 GFR Calculation 75.3 L Glucose 94 Calculated Osmolal ity 282 L Calcium 9.2 Total Bilirubin 0.2 AST 11 ALT 16 Alkaline Phosphata se 113 H Total Protein 6.0 L Albumin 3.6 Globulin 2.4 JOSE Screen Positive A JOSE Titer 1:40 H JOSE Pattern Nuclear, homogene ous A Vitals: Last Vital Signs Temp 98.0 F 01/29/20 11:36 Pulse 82 01/29/20 11:52 Resp 18 01/29/20 11:52 BP 103/70 01/29/20 11:36 Pulse Ox 96 01/29/20 11:52 Discharge Plan Discharge Patient Disposition: Home Condition: Stable Prescriptions: New Levaquin 750 mg tablet 750 mg PO DAILY 7 Days Qty: 7 RF: 0 prednisone 20 mg Tablet 20 mg PO DAILY 9 Days Qty: 11 RF: 0 Lidoderm 5 % Adhesive Patch,Medicated 1 patch topical O12O12 Qty: 14 RF: 0 Continued loratadine 10 mg tablet 10 mg PO DAILY Qty: 90 RF: 0 polyethylene glycol 3350 [Miralax] 17 gram/dose powder 17 gm PO DAILY PRN (Reason: constipation) RF: 0 ipratropium-albuterol 0.5 mg-3 mg(2.5 mg base)/3 mL solution for nebulization 3 ml INHALATION Q4H PRN (Reason: Shortness Of Breath) RF: 0 aspirin 81 mg tablet,delayed release (DR/EC) 81 mg PO DAILY RF: 0 methocarbamol [Robaxin-750] 750 mg tablet 750 mg PO TID PRN (Reason: back pain) Qty: 90 RF: 0 lorazepam 0.5 mg tablet 0.5 mg PO DAILY PRN (Reason: Anxiety) 30 Days Qty: 30 RF: 0 venlafaxine 75 mg capsule,extended release 24hr 75 mg PO BID RF: 0 Ingrezza 80 mg capsule 80 mg PO DAILY 1 Days RF: 2 hydroxyzine pamoate 50 mg capsule See Rx Instructions .ROUTE .COMPLEX Qty: 90 RF: 0 quetiapine [Seroquel] 300 mg tablet 300 mg PO .HS Qty: 30 RF: 1 Trelegy Ellipta 100-62.5-25 mcg blister with device 1 inh INHALATION DAILY RF: 0 lamotrigine 200 mg tablet See Rx Instructions .ROUTE .COMPLEX 30 Days Qty: 90 RF: 1 hydroxyzine pamoate 100 mg Capsule 100 mg PO BEDTIME RF: 0 promethazine [Promethegan] 25 mg suppository 25 mg [place] Q12H PRN (Reason: Nausea And Vomiting) RF: 0 sucralfate [Carafate] 1 gram tablet 1 gm PO Q6H 1 Days RF: 0 trazodone 100 mg tablet 200 mg PO BEDTIME 30 Days RF: 3 pantoprazole [Protonix] 40 mg tablet,delayed release (DR/EC) 40 mg PO DAILY 1 Days RF: 5 Discontinued prednisone 20 mg tablet 20 mg PO Q4H RF: 0 Discharge Orders: Discharge Order (Routine); Ordered 01/29/20 Ordered By: Rip Driscoll Referrals: Dara Tavera FNP [Primary Care Provider] - 02/04/20 10:00 am Arina Bray MD [Physician] - 02/03/20 Discharge Diet: Cardiac Discharge Activity: Increase activity as tolerated and Oxygen as instructed Patient Instructions: Prednisone (By mouth), Levofloxacin (By mouth), Lidocaine Patch (On the skin) Activity Restrictions/Additional Instructions: Continue oxygen at 2 L/min by nasal cannula. Target saturation of 92%. If you experience any fevers, worsening cough, any blood in sputum, any persistent/worsening chest pain, severe shortness of breath, or any other unusual symptoms, please seek medical attention immediately. The viral respiratory panel, as well as studies for pneumocystis are still pending from this hospitalization. Please discuss with your primary care doctor and professional employer consultant to have these followed up. Please discuss with your lung doctor borderline elevated JOSE, with 1:40 titer. Please follow-up with your primary care doctor with regards to alkaline phosphatase elevation with normal GGT. This is minimal, however, additional sources apart from liver may need to be considered. 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
[2020-02-06 14:01] LABS: Adenovirus SEE COMMENTS
== END 2020-01-29 15:48 | disposition home or self-care (01) | DRG 190 ==
LOC: ER 22:38 → MEDSURG 01-25 00:05
PROVIDERS: Emergency Medicine; Student in an Organized Health Care Education/Training Program; Admitting Provider Internal Medicine; PCP Registered Nurse; Visit Provider Internal Medicine
DX: J44.1 Chronic obstructive pulmonary disease with (acute) exacerbation (principal); J15.212 Pneumonia due to Methicillin resistant Staphylococcus aureus; F17.211 Nicotine dependence, cigarettes, in remission; Z20.828 Contact with and (suspected) exposure to other viral communicable diseases; Z79.82 Long term (current) use of aspirin; Z99.81 Dependence on supplemental oxygen; K21.9 Gastro-esophageal reflux disease without esophagitis; G89.29 Other chronic pain; M54.9 Dorsalgia, unspecified; F60.3 Borderline personality disorder; F41.9 Anxiety disorder, unspecified; F25.0 Schizoaffective disorder, bipolar type; Z79.52 Long term (current) use of systemic steroids; J44.0 Chronic obstructive pulmonary disease with (acute) lower respiratory infection
CPT/HCPCS: 12345; 36415; 36416; 71045; 71275; 80053; 82728; 82962; 82977; 83605; 83615; 83880; 84145; 84484; 85025; 85378; 85610; 86038; 86682; 87040; 87070; 87077; 87186; 87205; 87281; 87426; 87449; 87635; 93005; 94640; 96372; 96375; 99214; 99282; J0456; J0696; J1650; J2270; J2405; J7050; J7512; J7611; Q9967

== ENCOUNTER 2020-01-31 19:35 | Inpatient (IN) | payer MEDICARE, MEDICAID, SELFPAY ==
[2020-01-31 19:44] VITALS: PULSE 74; RESP 18; O2SAT 94
--- NOTE | 2020-01-31 19:45 | ECG_ITS ---
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 Measurements Intervals Adah Rate: 95 P: 57 LA: 141 QRS: 40 QRSD: 107 T: 49 QT: 373 QTc: 470 Interpretive Statements SINUS RHYTHM Compared to ECG 01/25/2020 10:30:12 No significant changes Electronically Signed On 02-02-2020 18:08:48 CDT by Frances Loja M.D. [id number]
--- NOTE | 2020-01-31 19:48 | ED_ITS ---
HPI - General Adult General: Chief complaint: Shortness of Breath/Dyspnea Stated complaint: difficulty breathing Time Seen by Provider: 01/31/20 19:40 Source: patient and EMS Mode of arrival: EMS Limitations: no limitations History of Present Illness: HPI narrative: Latesha is a 54-year-old female who comes in complaining of shortness of breath, wheezing and increased weakness. Patient states she was discharged from the hospital 2 days ago for pneumonia and has declined since. She denies any fever but does state that she has a runny nose. She denies any other focal complaints. She denying any chest pain, syncope, urinary symptoms, abdominal pain or other edge. Patient is unaware of anything that makes her symptoms better or worse. Patient states she just feels significant fatigue. Associated symptoms: Reports malaise; Deny chest pain, confusion, diaphoresis, dyspnea, headache(s), nausea, rash, palpitations, syncope or vomiting Review of Systems Const: Reports: body aches, fatigue and malaise; Denies: fever(s), chills or diaphoresis Eyes: Denies: change in vision, blurry vision, photophobia, eye discomfort, eye discharge or eye redness ENMT: Denies: throat pain, odynophagia, hoarseness, swelling of lips/tongue, ear or mastoid pain, ear discharge, change in hearing or nasal discharge Card: Denies: chest pain, palpitations, irregular heart rhythm, edema, lightheadedness, syncope, pre-syncope, dyspnea on exertion or orthopnea Resp: Denies: dyspnea, productive cough, non-productive cough, wheezing, hemoptysis or chest congestion GI: Denies: abdominal pain, nausea, vomiting, hematemesis, coffee ground emesis, heartburn, diarrhea, constipation, GI cramping, hematochezia or melena : Denies: flank pain, dysuria, urinary frequency, urinary urgency or hematuria Musc: Denies: neck pain, back pain, extremity pain, extremity swelling, joint pain, joint swelling, joint redness, joint warmth or joint stiffness Skin/Breast: Denies: rash, pruritus, erythema or skin tenderness Neuro: Denies: headache(s), numbness in extremities, weakness in extremities, sensory changes, lack of coordination, difficulty walking, dizziness, vertigo, confusion, Slurred speech present or seizure-like activity Wilbur/Lymph: Denies: easy bruising, easy bleeding, petechiae, purpura or enlarged lymph nodes All/Imm: Denies: urticaria, throat swelling, tongue swelling, facial swelling or acute wheezing PFSH ED PFSH: Medical History Bladder stone Borderline personality disorder Chronic anxiety Chronic back pain greater than 3 months duration Chronic cystitis with hematuria COPD (chronic obstructive pulmonary disease) Foreign body in bladder GERD without esophagitis Hemoptysis Infiltrate of lung present on imaging of chest Neurogenic bladder Nicotine dependence, cigarettes, with other nicotine-induced disorders Oxygen dependent Schizoaffective disorder, bipolar type Urgency incontinence Surgical History H/O: hysterectomy History of appendectomy History of breast biopsy History of ureter stent Hx of cholecystectomy S/P bronchoscopy with biopsy Family History Other Asthma Cancer Diabetes Heart disease Social History Smoking and tobacco status: former smoker Quit status (tobacco): has quit using tobacco Year quit tobacco: 2019PD x 25 Years Alcohol intake: never Lives independently: Yes Household members: spouse and none Marital status: Number of children: 3 Current occupational status: disabled History of recent travel: No Current gender identity: Female Female Reproductive History: Date of last menstrual period: 06/19/95 Physical Exam Const: COMMON NORMALS: no acute distress, patient oriented x3, no limitations, healthy appearing and well nourished GENERAL APPEARANCE: cooperative, well kempt and well developed HENMT: COMMON NORMALS: normocephalic, atraumatic, external ears normal, EAC's normal and Normal external nose present HEAD & SCALP: normal to inspection, normocephalic and atraumatic FACE & SINUS: normal facial exam and face symmetric NOSE: Normal external nose present and Normal nares present EXTERNAL EAR: Yes external ears normal EXTERNAL AUDITORY CANAL: EAC's normal MOUTH: Normal oral and palatal mucosa present, lip normal and tongue normal Eye: COMMON NORMALS: Equal, round and reactive pupils present and conjunctivae normal GENERAL EYE: appearance normal, both eyes and all related structures ALIGNMENT: Yes alignment normal PERIORBITAL: periorbital findings normal EYELID: eyelids normal CONJUNCTIVA: Yes conjunctivae normal SCLERA: sclerae normal PUPIL: Yes Equal, round and reactive pupils present Neck/C-Spine: COMMON NORMALS: full ROM, no lymphadenopathy, supple, no meningeal signs and no JVD GENERAL: Yes normal visual inspection and Yes trachea midline Chest: COMMONS NORMALS: normal inspection of the chest and normal palpation of entire chest wall Resp: COMMON NORMALS: normal respiratory effort, No retractions, No use of accessory muscles and clear to auscultation bilaterally EFFORT & INSPECTION: Yes able to speak in complete sentences and Yes symmetric chest movement AUSCULTATION: clear to auscultation bilaterally, no crackles, no rales, no rhonchi and no wheezes Cardio: COMMON NORMALS: no JVD, regular rate, regular rhythm, S1 normal heart sound present and S2 normal heart sound present RATE: regular rate RHYTHM: regular rhythm HEART SOUNDS: S1 normal heart sound present, S2 normal heart sound present, no click, no gallops, no murmurs, no rubs and abnormal split S2 GI: COMMON NORMALS: Soft to palpation and No hepatosplenomegaly present PALPATION: Yes Soft to palpation, No Tenderness to palpation present (GI), No Guarding due to palpation present (GI), No Rigid due to palpation, Yes No hepatosplenomegaly present, No Hernia present, No Palpable mass present and No Pulsatile mass present : COMMON NORMALS: Yes no CVA tenderness BLADDER/KIDNEY EXAM: Yes no CVA tenderness EXTERNAL FEMALE EXAM: No Hernia present Back/Pelvis: COMMON NORMALS: no CVA tenderness, thoracic and lumbar spine normal to inspection, no thoracic nor lumbar tenderness and thoraco-lumbar ROM normal Extremity: COMMON NORMALS: normal to inspection, full ROM, capillary refill normal, no joint enlargement, no clubbing, cyanosis or edema and no calf tenderness Neuro: COMMON NORMALS: patient oriented x3, CN's II-XII intact bilaterally, moves all extremities, no focal motor deficits and no sensory deficits noted MENINGEAL SIGNS: Yes no meningeal signs SPEECH: speech normal Psych: COMMON NORMALS: mental status grossly normal, Normal thought process present, cooperative, normal affect, speech normal and activity/motor behavior normal APPEARANCE: Yes well kempt SPEECH: Yes normal speech THOUGHT PROCESS: Normal thought process present Skin: COMMON NORMALS: no rashes or lesions noted, turgor normal, no jaundice, no petechiae and no mottling GENERAL SKIN EXAM: no rashes or lesions noted and turgor normal Course Vital Signs: Vital signs: Vital Signs Temperature 97.9 F 01/31/20 20:48 Pulse Rate 79 02/01/20 01:01 Respiratory Rate 21 H 02/01/20 01:01 Blood Pressure 121/80 02/01/20 01:01 Pulse Oximetry 93 02/01/20 01:01 MDM - General Adult MDM Narrative: Medical decision making narrative: Latesha is a 54-year-old female who returns here to the ER 2 days after being discharged for a prolonged hospital stay for pneumonia. She has a elevated white count and labored respirations. The case was reviewed in full with Dr. Rahman and she is agreeable to admission. Lab Data: Attestation: I reviewed the patient's lab results. Labs: Lab Results 01/31/20 01/31/20 01/31/20 Range/Units 20:16 20:47 20:47 WBC 30.6 H* (4.0-10.0) 10^3/ uL RBC 4.75 (4.1-5.3) 10^6/u L Hgb 13.4 (11.5-15.3) g/dL Hct 42.0 (37.0-47.0) % MCV 88.4 (81-99) fL MCH 28.2 (28.0-34.0) pg MCHC 31.9 (30.0-36.0) g/dL RDW 15.1 (12.1-15.1) % Plt Count 272 (130-400) 10^3/c mm MPV 10.1 (7.4-10.4) fL Neut % (Auto) 80.0 % Lymph % (Auto) 10.5 % Edmunds % (Auto) 7.9 % Eos % (Auto) 0.1 % Baso % (Auto) 0.3 % Neut # (Auto) 24.43 H (1.8-7.7) 10^3/u L Lymph # (Auto) 3.2 (0.8-4.8) 10^3/u L Edmunds # (Auto) 2.4 H (0.2-0.9) 10^3/u L Eos # (Auto) 0.0 (0.0-0.8) 10^3/u L Baso # (Auto) 0.1 (0.0-0.1) 10^3/u L Nucleated RBC % (a uto) 0 % Nucleated RBCs # 0.0 /100WBC PT 12.20 (12.1-14.9) SECO NDS INR 0.88 (0.8-1.2) D-Dimer 0.75 H (0-0.59) ug/mIFE U Specimen Type Arterial Sample Site Radial, left ABG pH 7.45 (7.35-7.45) ABG pCO2 37.6 (35-45) mmHg ABG pO2 65.6 L (80.0-100.0) mmH g ABG HCO3 25.9 (22-26) mmol/L ABG Base Excess 1.9 (-2.0-2.0) mmol/ L Juan Test Pos Hematocrit 38.2 (37-47) % O2 Delivery Device Nc O2 Liters/Min 2.0 % [employer] Salesperson ID [place] Sodium (136-145) mmol/L Potassium (3.5-5.1) mmol/L Chloride (98-107) mmol/L Carbon Dioxide (22-29) mmol/L Anion Gap (5-19) BUN (6-20) mg/dL Creatinine (0.5-0.9) mg/dL GFR Calculation Glucose (65-115) mg/dL Calculated Osmolal ity (285-295) mOsm/k g Lactic Acid (0.5-2.2) mmol/L Calcium (8.5-10.5) mg/dL Magnesium (1.7-2.3) mg/dL Total Bilirubin (0.15-1.2) mg/dL AST (0-32) U/L ALT (0-33) U/L Alkaline Phosphata se (35-105) IU/L Troponin T Baselin e (0-10) ng/L Troponin T 120 Min [place] (0-10) ng/L Delta Troponin T (0-10) ABS# NT-Pro-B Natriuret Pep (0-125) pg/mL Total Protein (6.6-8.7) g/dL Albumin (3.5-5.2) g/dL Globulin (1.3-4.6) g/dL Influenza Type A A g (Negative) Influenza Type B A g (Negative) SARS-CoV-2 Ag (Rap id) (Negative) 01/31/20 01/31/20 01/31/20 Range/Units 20:47 20:47 20:47 WBC (4.0-10.0) 10^3/ uL RBC (4.1-5.3) 10^6/u L Hgb (11.5-15.3) g/dL Hct (37.0-47.0) % MCV (81-99) fL MCH (28.0-34.0) pg MCHC (30.0-36.0) g/dL RDW (12.1-15.1) % Plt Count (130-400) 10^3/c mm MPV (7.4-10.4) fL Neut % (Auto) % Lymph % (Auto) % Edmunds % (Auto) % Eos % (Auto) % Baso % (Auto) % Neut # (Auto) (1.8-7.7) 10^3/u L Lymph # (Auto) (0.8-4.8) 10^3/u L Edmunds # (Auto) (0.2-0.9) 10^3/u L Eos # (Auto) (0.0-0.8) 10^3/u L Baso # (Auto) (0.0-0.1) 10^3/u L Nucleated RBC % (a uto) % Nucleated RBCs # /100WBC PT (12.1-14.9) SECO NDS INR (0.8-1.2) D-Dimer (0-0.59) ug/mIFE U Specimen Type Sample Site ABG pH (7.35-7.45) ABG pCO2 (35-45) mmHg ABG pO2 (80.0-100.0) mmH g ABG HCO3 (22-26) mmol/L ABG Base Excess (-2.0-2.0) mmol/ L Juan Test Hematocrit (37-47) % O2 Delivery Device O2 Liters/Min % [employer] Salesperson ID Sodium 137 (136-145) mmol/L Potassium 4.3 (3.5-5.1) mmol/L Chloride 100 (98-107) mmol/L Carbon Dioxide 21 L (22-29) mmol/L Anion Gap 20.3 H (5-19) BUN 34 H (6-20) mg/dL Creatinine 0.9 (0.5-0.9) mg/dL GFR Calculation Not Reportable Glucose 117 H (65-115) mg/dL Calculated Osmolal ity 282 L (285-295) mOsm/k g Lactic Acid 1.7 (0.5-2.2) mmol/L Calcium 8.8 (8.5-10.5) mg/dL Magnesium 2.3 (1.7-2.3) mg/dL Total Bilirubin 0.2 (0.15-1.2) mg/dL AST 15 (0-32) U/L ALT 18 (0-33) U/L Alkaline Phosphata se 128 H (35-105) IU/L Troponin T Baselin e 6 (0-10) ng/L Troponin T 120 Min [place] (0-10) ng/L Delta Troponin T (0-10) ABS# NT-Pro-B Natriuret Pep 100 (0-125) pg/mL Total Protein 6.0 L (6.6-8.7) g/dL Albumin 4.0 (3.5-5.2) g/dL Globulin 2.0 (1.3-4.6) g/dL Influenza Type A A g (Negative) Influenza Type B A g (Negative) SARS-CoV-2 Ag (Rap id) (Negative) 01/31/20 01/31/20 01/31/20 Range/Units 20:55 20:55 22:48 WBC (4.0-10.0) 10^3/ uL RBC (4.1-5.3) 10^6/u L Hgb (11.5-15.3) g/dL Hct (37.0-47.0) % MCV (81-99) fL MCH (28.0-34.0) pg MCHC (30.0-36.0) g/dL RDW (12.1-15.1) % Plt Count (130-400) 10^3/c mm MPV (7.4-10.4) fL Neut % (Auto) % Lymph % (Auto) % Edmunds % (Auto) % Eos % (Auto) % Baso % (Auto) % Neut # (Auto) (1.8-7.7) 10^3/u L Lymph # (Auto) (0.8-4.8) 10^3/u L Edmunds # (Auto) (0.2-0.9) 10^3/u L Eos # (Auto) (0.0-0.8) 10^3/u L Baso # (Auto) (0.0-0.1) 10^3/u L Nucleated RBC % (a uto) % Nucleated RBCs # /100WBC PT (12.1-14.9) SECO NDS INR (0.8-1.2) D-Dimer (0-0.59) ug/mIFE U Specimen Type Sample Site ABG pH (7.35-7.45) ABG pCO2 (35-45) mmHg ABG pO2 (80.0-100.0) mmH g ABG HCO3 (22-26) mmol/L ABG Base Excess (-2.0-2.0) mmol/ L Juan Test Hematocrit (37-47) % O2 Delivery Device O2 Liters/Min % [employer] Salesperson ID Sodium (136-145) mmol/L Potassium (3.5-5.1) mmol/L Chloride (98-107) mmol/L Carbon Dioxide (22-29) mmol/L Anion Gap (5-19) BUN (6-20) mg/dL Creatinine (0.5-0.9) mg/dL GFR Calculation Glucose (65-115) mg/dL Calculated Osmolal ity (285-295) mOsm/k g Lactic Acid (0.5-2.2) mmol/L Calcium (8.5-10.5) mg/dL Magnesium (1.7-2.3) mg/dL Total Bilirubin (0.15-1.2) mg/dL AST (0-32) U/L ALT (0-33) U/L Alkaline Phosphata se (35-105) IU/L Troponin T Baselin e (0-10) ng/L Troponin T 120 Min [place] 6.00 (0-10) ng/L Delta Troponin T 0 (0-10) ABS# NT-Pro-B Natriuret Pep (0-125) pg/mL Total Protein (6.6-8.7) g/dL Albumin (3.5-5.2) g/dL Globulin (1.3-4.6) g/dL Influenza Type A A g Negative (Negative) Influenza Type B A g Negative (Negative) SARS-CoV-2 Ag (Rap id) Negative (Negative) Imaging Data^: CXR: Attestation: I personally reviewed and interpreted this imaging study as follows: My impression: No acute cardiopulmonary findings, unchanged from previous. EKG Data^: EKG 1: Attestation: I personally reviewed and interpreted this EKG as follows: EKG interpretation date: 01/31/20 EKG interpretation time: 20:29 Interpretation: Normal sinus rhythm at 95 beats a minute, no acute ST or T wave changes. Computer generated interpretation: Chest CTA 01/31/20 21:21 IMPRESSION: 1. The there is no pulmonary embolus. 2. There is an unchanged 1 cm calcified nodule left thyroid lobe. No follow-up is necessary. 3. There is diffuse ground-glass and interstitial prominence in the lungs compatible with pneumonitis versus CHF. COMMENTS: Consistent with the [place] [employer]'s Incidental Findings Committee white paper (J Am Ayan Radiol 2015): In patients aged 35 years and older with an incidental thyroid nodule equal to or greater than 1.[address], MRI or extrathyroidal US, further evaluation with dedicated thyroid US is recommended for patients with normal life expectancy and without comorbidities. For smaller nodules without suspicious features, no further evaluation or follow up is recommended. Radiation Dose CTDIVOL = (mGy): DLP = 652.49 (mGy-cm) Chest X-Ray 01/31/20 21:21 IMPRESSION: 1. Fullness in the pulmonary vasculature suggesting volume overload in the lungs. 2. Incidental/nonacute findings are listed in the report. EKG 2: Attestation: I personally reviewed and interpreted this EKG as follows: EKG interpretation date: 01/31/20 EKG interpretation time: 21:41 Interpretation: Normal sinus rhythm at 83 beats a minute, no acute ST or T wave changes. Computer generated interpretation: Chest CTA 01/31/20 21:21 IMPRESSION: 1. The there is no pulmonary embolus. 2. There is an unchanged 1 cm calcified nodule left thyroid lobe. No follow-up is necessary. 3. There is diffuse ground-glass and interstitial prominence in the lungs compatible with pneumonitis versus CHF. COMMENTS: Consistent with the [place] [employer]'s Incidental Findings Committee white paper (J Am Ayan Radiol 2015): In patients aged 35 years and older with an incidental thyroid nodule equal to or greater than 1.[address], MRI or extrathyroidal US, further evaluation with dedicated thyroid US is recommended for patients with normal life expectancy and without comorbidities. For smaller nodules without suspicious features, no further evaluation or follow up is recommended. Radiation Dose CTDIVOL = (mGy): DLP = 652.49 (mGy-cm) Chest X-Ray 01/31/20 21:21 IMPRESSION: 1. Fullness in the pulmonary vasculature suggesting volume overload in the lungs. 2. Incidental/nonacute findings are listed in the report. Discharge Plan Discharge Admit Provider: Kristyn Florian Coding Level of Care Code ED Dehydration Unit Operator for Chg Fwd Exam Comprehensive
[2020-01-31 20:27] LABS: ABG PCO2 37.6 mmHg (35-45); ABG PH Result 7.45 (7.35-7.45); Arterial Blood Gas Hematocrit 38.2 % (37-47); Base Excess ABG 1.9 mmol/L (-2.0-2.0); Blood Gas Allen Test Pos; Blood Gas Sample Site Radial, left; Blood Gas Sample Type Arterial; HCO3 ABG 25.9 mmol/L (22-26); Oxygen Device NC; PO2 ABG 65.6 mmHg (80.0-100.0)
[2020-01-31 20:48] VITALS: BP 103/57; PULSE 95; RESP 22; TEMP 36.6; O2SAT 91
[2020-01-31 20:55] LABS: Basophils # 0.1 10^3/uL (0.0-0.1); Basophils % 0.3 %; Eosinophils % 0.1 %; Hemoglobin 13.4 g/dL (11.5-15.3); Lymphocytes # 3.2 10^3/uL (0.8-4.8); Lymphocytes % 10.5 %; Mean Corpuscular HGB Conc 31.9 g/dL (30.0-36.0); Mean Corpuscular Hemoglobin 28.2 pg (28.0-34.0); Mean Corpuscular Volume 88.4 fL (81-99); Mean Platelet Volume 10.1 fL (7.4-10.4); Monocytes # 2.4 10^3/uL (0.2-0.9); Monocytes % 7.9 %; Neutrophils # 24.43 10^3/uL (1.8-7.7); Nucleated Red Blood Cells % 0 %; Platelet Count 272 10^3/cmm (130-400); Red Blood Count 4.75 10^6/uL (4.1-5.3); Red Cell Distribution Width 15.1 % (12.1-15.1)
[2020-01-31 21:06] LABS: INR 0.88 (0.8-1.2)
[2020-01-31 21:09] LABS: D Dimer 0.75 ug/mIFEU (0-0.59)
[2020-01-31 21:10] LABS: Calcium 8.8 mg/dL (8.5-10.5); Lactic Sepsis W/Reflex 1.7 mmol/L (0.5-2.2); Total Bilirubin 0.2 mg/dL (0.15-1.2)
--- NOTE | 2020-01-31 21:21 | XRR_ITS ---
PROCEDURE INFORMATION: Exam: XR Chest, 1 View Exam date and time: 01/31/2020 9:32 PM Age: 54 years old Clinical indication: Dyspnea TECHNIQUE: Imaging protocol: XR of the chest Views: 1 view. COMPARISON: CR XR chest 1V portable [id number] 01/29/2020 12:08 PM FINDINGS: Lungs: Fullness in the pulmonary vasculature suggesting volume overload in the lungs. Pleural space: No pleural effusion. No pneumothorax. Heart/Mediastinum: Stable mild enlargement of the visualized portions of the heart. Mediastinal contours are unremarkable. Vasculature: Stable vascular calcifications in the aorta. Bones/joints: Unremarkable for age. XR/XR chest 1V portable [id number] IMPRESSION: 1. Fullness in the pulmonary vasculature suggesting volume overload in the lungs. 2. Incidental/nonacute findings are listed in the report.
--- NOTE | 2020-01-31 21:21 | CTR_ITS ---
PROCEDURE INFORMATION: Exam: CT Angiography Chest With Contrast Exam date and time: 01/31/2020 9:47 PM Age: 54 years old Clinical indication: Chest pain; Additional info: Chest pain, positive d-dimer TECHNIQUE: Imaging protocol: Computed tomographic angiography of the chest with intravenous contrast. 3D rendering: MIP and/or 3D reconstructed images were created by the technologist. Radiation optimization: All CT scans at this facility use at least one of these dose optimization techniques: automated exposure control; mA and/or kV adjustment per patient size (includes targeted exams where dose is matched to clinical indication); or iterative reconstruction. Contrast material: OMNI 350; Contrast volume: 79 ml; Contrast route: INTRAVENOUS (IV); COMPARISON: CT angio chest PE protcl [id number] 01/24/2020 10:12 PM RADIATION DOSE METRICS: Total DLP (mGy-cm): 652.49 FINDINGS: Pulmonary arteries: The there is no pulmonary embolus. Aorta: Unremarkable. No aortic aneurysm. No aortic dissection. Thyroid: There is an unchanged 1 cm calcified nodule left thyroid lobe. Lungs: There is diffuse ground-glass and interstitial prominence in the lungs compatible with pneumonitis versus CHF. Pleural space: Unremarkable. No pneumothorax. No pleural effusion. Heart: The heart is enlarged. Mediastinal space: A small hiatal hernia is present. Lymph nodes: There is a 1.9 cm right paratracheal lymph node image 166 unchanged since the prior exam. There is an unchanged 1.3 cm precarinal lymph node. Unchanged subcentimeter hilar lymph nodes are noted. Bones/joints: Unremarkable. No acute fracture. Soft tissues: Unremarkable. CT/CT angio chest PE protcl [id number] IMPRESSION: 1. The there is no pulmonary embolus. 2. There is an unchanged 1 cm calcified nodule left thyroid lobe. No follow-up is necessary. 3. There is diffuse ground-glass and interstitial prominence in the lungs compatible with pneumonitis versus CHF. COMMENTS: Consistent with the [employer]'s Incidental Findings Committee white paper (J Am Ayan Radiol 2015): In patients aged 35 years and older with an incidental thyroid nodule equal to or greater than 1.[address], MRI or extrathyroidal US, further evaluation with dedicated thyroid US is recommended for patients with normal life expectancy and without comorbidities. For smaller nodules without suspicious features, no further evaluation or follow up is recommended. Radiation Dose CTDIVOL = (mGy): DLP = 652.49 (mGy-cm)
[2020-01-31 21:22] LABS: White Blood Count 30.6 10^3/uL (4.0-10.0)
[2020-01-31 21:24] LABS: SARS Covid-2 Antigen Negative (Negative)
[2020-01-31 21:25] LABS: Influenza A by IFA Negative (Negative); Influenza B by IFA Negative (Negative)
[2020-01-31 21:33] LABS: Troponin(5th) Baseline 6 ng/L (0-10)
[2020-01-31 21:41] LABS: Alanine Aminotransferase 18 U/L (0-33); Alkaline Phosphatase 128 IU/L (35-105); Anion Gap 20.3 (5-19); Aspartate Amino Transferase 15 U/L (0-32); Blood Urea Nitrogen 34 mg/dL (6-20); Carbon Dioxide 21 mmol/L (22-29); Chloride 100 mmol/L (98-107); Glucose 117 mg/dL (65-115); Magnesium 2.3 mg/dL (1.7-2.3); NT Pro B Type Natriuretic Pept 100 pg/mL (0-125); Osmolality Calculated 282 mOsm/kg (285-295); Potassium 4.3 mmol/L (3.5-5.1); Sodium 137 mmol/L (136-145)
--- NOTE | 2020-01-31 21:45 | ECG_ITS ---
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 Measurements Intervals [place] Rate: 83 P: 52 AR: 135 QRS: 29 QRSD: 106 T: 50 QT: 388 QTc: 456 Interpretive Statements SINUS RHYTHM Compared to ECG 01/31/2020 20:29:17 No significant changes Electronically Signed On 02-02-2020 18:13:45 CDT by Frances Loja M.D. [id number]
[2020-01-31] MEDS: ondansetron 2 mg/ML SDV 2 mL 4 MG IVP (21:47)
[2020-01-31] MEDS: sodium chloride 0.9% 1,000 ML 100 ML IV (21:47)
[2020-01-31] MEDS: iohexol 350 mg/mL 100 mL Btl IV (23:05)
[2020-01-31 23:16] LABS: Troponin 5 2HR Delta 0 ABS# (0-10)
[2020-01-31] MEDS: ipratropium-albuterol 3 mL Neb 9 ML INHALATION (23:50)
[2020-02-01] VITALS (21 sets, daily range): BP systolic 99–138; BP diastolic 56–80; PULSE 69–96; RESP 16–21; TEMP 36.7–37; O2SAT 93–97
--- NOTE | 2020-02-01 01:20 | P.HP_ITS ---
Providers/Chief Complaint Admitting Physician: Chiqui Primary Care Provider: AMANDEEP Barclay Chief Complaint: difficulty breathing History of Present Illness Latesha Wilhelm is a 54 year old female known to me from prior admissions who was recently discharged. She left the hospital on January 28. She says she was initially doing okay but on Monday morning January 30, she woke up being more short of breath. Shortness of breath with exertion was more pronounced but even at rest she had a hard time. She has been wheezing more despite breathing treatments. She has not really been coughing up anything. Denies any fevers. She has had increased malaise since that time as well. Review of records shows that she had been treated with Rocephin and azithromycin while in the hospital and was changed to oral Levaquin at discharge. He was also given prednisone 20 mg. She reports compliance with medications. She has had extensive work-up this year for her respiratory issues and has an appointment scheduled with Dr. Bary on Monday. Work-up in the emergency room showed her white count was back up to 30,000 with a left shift. She had received oral steroids during the [facility] stay. Denies any diarrhea or vomiting. On arrival she appeared to be in some degree of distress. She received Review of Systems Const: Reports: chills, body aches, change in appetite, fatigue and malaise; Denies: fever(s) Eyes: Denies: change in vision ENMT: Reports: nasal congestion; Denies: throat pain or dry mouth Card: Reports: dyspnea on exertion; Denies: chest pain, palpitations, edema or orthopnea Resp: Reports: dyspnea, productive cough, non-productive cough and wheezing; Denies: pain on inspiration or hemoptysis GI: Denies: abdominal pain, nausea, vomiting, diarrhea or constipation : Denies: difficulty voiding Musc: Reports: muscle weakness (Right upper extremity, not new); Denies: joint swelling or joint redness Skin/Breast: Reports: pruritus (Not new); Denies: rash Neuro: Reports: headache(s); Denies: numbness in extremities, weakness in extremities or dizziness Psych: Reports: anxiety, depression and other (Insomnia); Denies: auditory hallucinations or suicidal ideation Wilbur/Lymph: Denies: easy bruising or easy bleeding Medications/Allergies Home Medications Medication Instructions Recorded Confirmed Last Taken Type polyethylene glycol 3350 17 17 gm PO DAILY PRN gm 06/13/19 01/31/20 01/31/20 History gram/dose oral powder hydroxyzine pamoate 100 mg PO BEDTIME 09/07/19 01/31/20 01/31/20 History promethazine [Promethegan] 25 mg IA Q12H PRN 09/07/19 01/31/20 01/31/20 History Trelegy Ellipta 1 inh INHALATION DAILY 09/19/19 01/31/20 01/31/20 History pantoprazole [Protonix] 40 mg PO DAILY 1 Days tab 10/05/19 01/31/20 01/31/20 Rx trazodone 200 mg PO BEDTIME 30 Days tab 10/05/19 01/31/20 01/31/20 Rx ipratropium 0.5 mg-albuterol 3 mg 3 ml INHALATION Q4H PRN 11/06/19 01/31/20 01/31/20 History (2.5 mg base)/3 mL nebulization soln loratadine 10 mg tablet 10 mg PO DAILY #90 tab 11/19/19 01/31/20 01/31/20 Rx aspirin 81 mg tablet,delayed 81 mg PO DAILY 11/28/19 01/31/20 01/31/20 History release lamotrigine See Rx Instructions .ROUTE 12/07/19 01/31/20 01/31/20 Rx .COMPLEX 30 Days #90 unknown measurement unit code: tablet valbenazine 80 mg capsule 80 mg PO DAILY 1 Days cap 12/30/19 01/31/20 01/31/20 Rx lorazepam 0.5 mg tablet 0.5 mg PO DAILY PRN 30 Days #30 tab 01/09/20 01/31/20 01/31/20 Rx hydroxyzine pamoate 50 mg capsule See Rx Instructions .ROUTE 01/16/20 01/31/20 01/31/20 Rx .COMPLEX #90 cap venlafaxine 75 mg capsule,extended 75 mg PO BID cap 01/21/20 01/31/20 01/31/20 History release 24 hr quetiapine 300 mg tablet 300 mg PO .HS #30 tab 01/24/20 01/31/20 01/31/20 Rx levofloxacin [Levaquin] 750 mg PO DAILY 7 Days #7 tab 01/29/20 01/31/20 01/31/20 Rx lidocaine [Lidoderm] 1 patch TOPICAL O12O12 #14 ea 01/29/20 01/31/20 Unknown Rx prednisone 20 mg PO DAILY 9 Days #11 tab 01/29/20 01/31/20 01/31/20 Rx sucralfate 1 gram tablet 1 gm PO Q6H #45 tab 01/31/20 01/31/20 01/31/20 Rx Allergies Allergy/AdvReac Type Severity Reaction Status Date / Time Penicillins Allergy Severe ALGY-Anaphy Verified 01/02/20 09:29 laxis sulfamethoxazole Allergy Severe ALGY-Hives Verified 01/02/20 09:29 [From Bactrim] Tetracyclines Allergy Severe ALGY-Hives Verified 01/02/20 09:29 gabapentin [From Neurontin] Allergy Intermediate ADR-Halluci Verified 01/02/20 09:29 nating ketorolac [From Toradol] Allergy Intermediate ALGY-Rash Verified 01/02/20 09:29 lithium Allergy Intermediate ADR-Halluci Verified 01/02/20 09:29 nating fentanyl Allergy Mild rash Verified 01/02/20 09:29 adhesive tape Allergy Rash Verified 01/02/20 09:29 codeine Allergy GI Verified 01/02/20 09:29 haloperidol [From Haldol] Allergy unknown Verified 01/02/20 09:29 quetiapine [From Seroquel] Allergy Unknown Verified 01/02/20 09:29 trimethoprim [From Bactrim] Allergy ALGY-Hives Verified 01/02/20 09:29 ziprasidone [From Geodon] AdvReac Severe ADR-Halluci Verified 01/02/20 09:29 nating influenza virus vac qs AdvReac Mild ADR-Nausea Verified 01/02/20 09:29 19-20(4 yr up) cell derived [From Flucelvax Quad [id number] (PF)] risperidone [From Risperdal] AdvReac ADR-Halluci Verified 01/02/20 09:29 nating PFSH Acute PFSH: Medical History Bladder stone Borderline personality disorder Chronic anxiety Chronic back pain greater than 3 months duration Chronic cystitis with hematuria COPD (chronic obstructive pulmonary disease) Foreign body in bladder GERD without esophagitis Neurogenic bladder Nicotine dependence, cigarettes, with other nicotine-induced disorders Quit in 2019 Oxygen dependent Schizoaffective disorder, bipolar type Urgency incontinence Surgical History H/O: hysterectomy History of appendectomy History of breast biopsy History of ureter stent Hx of cholecystectomy S/P bronchoscopy with biopsy Family History Other Asthma Cancer Diabetes Heart disease Social History Smoking and tobacco status: former smoker Quit status (tobacco): has quit using tobacco Year quit tobacco: 2019 - 1PPD x 25 Years Alcohol intake: never Lives independently: Yes Household members: spouse Marital status: Number of children: 3 Current occupational status: disabled History of recent travel: No Current gender identity: Female Female Reproductive History: Date of last menstrual period: 06/19/95 Vitals/I&O/Wt Last Vital Signs Temp 97.9 F 01/31/20 20:48 Pulse 79 02/01/20 01:01 Resp 21 H 02/01/20 01:01 BP 121/80 02/01/20 01:01 Pulse Ox 93 02/01/20 01:01 01/31/20 01/31/20 02/01/20 14:59 22:59 06:59 Intake Total 100 / 100 Balance 100 / 100 Physical Exam Const: OTHER: Alert, oriented x3, cooperative, receiving breathing treatment HENMT: OTHER: Normocephalic atraumatic, no posterior nasal drainage noted, mucous membranes moist, naso-pharynx clear Eye: OTHER: Pupils equally round and reactive to light, extraocular movements intact Neck/C-Spine: OTHER: Supple Resp: OTHER: Scattered inspiratory and expiratory wheezes more prominent on the right than the left, no accessory muscle use noted Cardio: OTHER: Regular rate and rhythm, no murmurs gallops or rubs. GI: OTHER: Abdomen soft, nontender, nondistended, positive bowel sounds : OTHER: Deferred Extremity: NARRATIVE EXTREMITY EXAM: No pitting edema or acute synovitis Neuro: OTHER: Face symmetric, speech clear, handgrip equal, strength equal both feet, no involuntary movements noted Skin: NARRATIVE SKIN EXAM: Skin is dry, a couple of abrasions which are minor noted Data : 02/01/20 03:14 02/01/20 03:14 Micro: Microbiology 01/31/20 20:47 Blood Culture - Preliminary Blood SPECIMEN COLLECTED 01/31/20 20:00 Blood Culture - Preliminary Blood SPECIMEN COLLECTED A&P Assessment and plan (1) Acute dyspnea: In a patient with some chronic respiratory problems. Has been extensively worked up this year.'s please see discharge summary by Dr. Driscoll January 28 for a nice summary. In looking at what she was on in the hospital versus upon discharge, the difference was that she was on azithromycin and Rocephin empirically inpatient and was changed to Levaquin outpatient. She is on a lower dose of prednisone as well. Clinically she looked improved by the time I saw her though continued to say she was very short of breath. She did admit that she was breathing better than arrival to the emergency room. Status: Acute (2) Leukocytosis: White count at the time of discharge had been 12,000 and up to 30.6 thousand today. Left shift is also noted. She has had periodic issues with leukocytosis and when she originally presented on January 23 had similar values. She does normalize her white count at times. No reports of GI symptoms to suggest C. difficile but it something to keep in mind. Status: Acute Qualifiers: Leukocytosis type: unspecified Qualified Code(s): D72.829 - Elevated white blood cell count, unspecified (3) Infiltrate of lung present on imaging of chest: Diffuse lower lobe groundglass opacities noted on CT imaging. Not as appreciable on chest x-ray per my interpretation. Of note this is somewhere between 6 and 8 CTAs of the chest that she has had this year. The etiology for these is unclear. She is again rapid COVID test negative. See summary from Dr. Driscoll's discharge summary on January 28 of all of the evaluation that she has had this year. Status: Acute (4) Schizoaffective disorder, bipolar type: Status: Acute (5) Borderline personality disorder: Status: Acute (6) Chronic anxiety: Status: Acute (7) Insomnia due to anxiety and fear: Status: Acute Additional A&P Information Observation admission for now Breathing treatments Increase back to 40 mg of prednisone Resume Rocephin and a azithromycin that she was on previously, consider discharge on oral cephalosporin and azithromycin Recheck CBC in the morning Has an appointment scheduled to see Dr. Bray on Monday at 9 AM for follow-up from hospital stay, if able to be discharged will need to keep this appointment Home medications continued as ordered Supportive care otherwise Still has a few labs from previous hospital stay pending as noted in discharge summary from January 28 Lovenox for DVT prophylaxis Plans were discussed with patient and she was given an opportunity to ask questions Full code Attestations Medical Necessity Statement*: Currently anticipated stay less than 2 midnights in a patient recently discharged and with known chronic respiratory difficulties. In complains of acute shortness of breath. Was found to have a white count of 30,000 with a left shift. Admitted for overnight monitoring to ensure no further increase or acute issues. 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
--- NOTE | 2020-02-01 01:45 | ECG_ITS ---
[facility] Test Date: 2020-02-01 Pat Name: Latesha Wilhelm Department: Room: 253 Gender: Female Grinder: : 1965 Requested By: Ann Meyers Order Number: [id number] Alice MD: Frances Loja M.D. Measurements Intervals [place] Rate: 72 P: 52 MI: 142 QRS: 38 QRSD: 107 T: 52 QT: 405 QTc: 445 Interpretive Statements SINUS RHYTHM Compared to ECG 01/31/2020 21:41:06 No significant changes Electronically Signed On 02-02-2020 18:13:59 CDT by Frances Loja M.D. [id number]
[2020-02-01 03:57] LABS: Basophils # 0.1 10^3/uL (0.0-0.1); Basophils % 0.4 %; Eosinophils # 0.2 10^3/uL (0.0-0.8); Eosinophils % 0.8 %; Hematocrit 37.8 % (37.0-47.0); Hemoglobin 11.9 g/dL (11.5-15.3); Lymphocytes # 3.7 10^3/uL (0.8-4.8); Lymphocytes % 17.4 %; Mean Corpuscular HGB Conc 31.5 g/dL (30.0-36.0); Mean Corpuscular Hemoglobin 27.8 pg (28.0-34.0); Mean Corpuscular Volume 88.3 fL (81-99); Mean Platelet Volume 10.2 fL (7.4-10.4); Monocytes # 1.3 10^3/uL (0.2-0.9); Neutrophils # 15.74 10^3/uL (1.8-7.7); Neutrophils % 74.4 %; Nucleated Red Blood Cells % 0 %; Platelet Count 256 10^3/cmm (130-400); Red Blood Count 4.28 10^6/uL (4.1-5.3); Red Cell Distribution Width 15.2 % (12.1-15.1); White Blood Count 21.2 10^3/uL (4.0-10.0)
[2020-02-01 04:17] LABS: Anion Gap 11.4 (5-19); Blood Urea Nitrogen 28 mg/dL (6-20); Calcium 8.5 mg/dL (8.5-10.5); Carbon Dioxide 28 mmol/L (22-29); Chloride 104 mmol/L (98-107); Glomerular Filtration Rate 75.3 mL/min (90-130); Glucose 90 mg/dL (65-115); Osmolality Calculated 285 mOsm/kg (285-295); Potassium 4.4 mmol/L (3.5-5.1); Sodium 139 mmol/L (136-145)
[2020-02-01 04:19] LABS: Troponin 5 6HR Delta 0 ng/L (0-12)
[2020-02-01] MEDS: ipratropium-albuterol 3 mL Neb INHALATION ×2 (08:54→20:40)
[2020-02-01] MEDS: loratadine 10 mg Tablet PO (09:02)
[2020-02-01] MEDS: lamoTRIgine 100 mg Tablet 200 MG PO (09:02)
[2020-02-01] MEDS: sodium chloride 0.9% 1,000 ML 100 ML IV ×2 (09:03→16:16)
[2020-02-01] MEDS: predniSONE 20 mg Tablet 40 MG PO (09:03)
[2020-02-01] MEDS: azithromycin 250 mg Tablet 500 MG PO (09:03)
[2020-02-01] MEDS: venlafaxine ER (24HR) 75 mg Capsule PO ×2 (09:03→17:34)
[2020-02-01] MEDS: sucralfate 1 gm Tablet PO ×3 (09:03→21:12)
[2020-02-01] MEDS: aspirin 81 mg EC Tablet PO (09:03)
[2020-02-01] MEDS: pantoprazole DR 40 mg Tablet PO (09:03)
[2020-02-01] MEDS: LORazepam 0.5 mg Tablet PO ×3 (09:08→23:51)
[2020-02-01] MEDS: lidocaine 5% Patch 1 PATCH TOPICAL (09:18)
[2020-02-01 10:00] LABS: Basophils # 0.1 10^3/uL (0.0-0.1); Basophils % 0.7 %; Eosinophils # 0.3 10^3/uL (0.0-0.8); Eosinophils % 1.9 %; Hematocrit 40.4 % (37.0-47.0); Hemoglobin 12.4 g/dL (11.5-15.3); Lymphocytes # 3.8 10^3/uL (0.8-4.8); Lymphocytes % 28.3 %; Mean Corpuscular HGB Conc 30.7 g/dL (30.0-36.0); Mean Corpuscular Volume 91.2 fL (81-99); Mean Platelet Volume 10.4 fL (7.4-10.4); Monocytes % 7.6 %; Neutrophils % 60.3 %; Nucleated Red Blood Cells % 0 %; Platelet Count 260 10^3/cmm (130-400); Red Blood Count 4.43 10^6/uL (4.1-5.3); Red Cell Distribution Width 15.5 % (12.1-15.1); White Blood Count 13.6 10^3/uL (4.0-10.0)
[2020-02-01] MEDS: cefTRIAXone 1,000 MG in sodium chloride 0.9% (plus) 50 ML 100 MG IV (10:19)
[2020-02-01] MEDS: enoxaparin 40 mg/0.4 mL Syringe SUBCUT (10:19)
[2020-02-01 10:29] LABS: Add Urine Microscopic? NO
[2020-02-01] MEDS: hyDROXYzine 25 mg Capsule 50 MG PO ×3 (10:30→16:22)
[2020-02-01 10:42] LABS: Bilirubin Urine Neg (NEGATIVE); Blood Urine Neg (Negative); Glucose Urine UA Norm (Normal); Ketones Urine Negative (Negative); Leukocyte Esterase Urine Negative (Negative); Nitrate Urine Negative (Negative); Protein Urine Neg (Negative); Specific Gravity, Urine 1.015 (1.005-1.030); Urine Appearance Clear (CLEAR); Urine Color Straw (Yellow); Urobilinogen Urine Norm (Negative); pH Urine 5 (5-7)
[2020-02-01] MEDS: acetaminophen 325 mg Tablet 650 MG PO (10:58)
[2020-02-01] MEDS: morphine 4 mg/mL SDV 1 mL 2 MG IVP ×3 (12:08→20:28)
[2020-02-01] MEDS: colchicine 0.6 mg Tablet PO ×2 (13:35→17:33)
--- NOTE | 2020-02-01 14:03 | PM.PN ---
Subjective Subjective: Interval history: Patient was examined this morning, upon arrival, she was complaining of some chest pain and shortness of breath, her EKG was normal sinus rhythm, no acute ST-T wave changes, review of her troponins are within normal limits, BMP within normal limits, she her pain seems more pleuritic, states that when she however she takes a tree breath and she gets chest tenderness, has chest wall tenderness, echocardiogram in 2019 showed an EF of 70%, patient has had multiple readmissions for COPD exacerbations, on her last hospitalization she had an extensive work-up for leukocytosis, which is relatively come back unremarkable, she follows up with Dr. Bray as outpatient, vitals saturating in the high 90s on 3 L, blood pressure 70281, heart rates 80s normal sinus rhythm, respiratory rate 16, lungs she has wheezing in all lung cortes, no retractions, no nasal flaring Vitals/I&O/Wt Last Vital Signs Temp 98.5 F 02/01/20 10:54 Pulse 85 02/01/20 10:54 Resp 16 02/01/20 12:08 BP 108/67 02/01/20 10:54 Pulse Ox 96 02/01/20 12:08 01/31/20 02/01/20 02/01/20 22:59 06:59 14:59 Intake Total 200 / 200 1300 / 1300 Output Total 800 / 800 400 / 400 Balance -600 / -600 900 / 900 Physical Exam Const: COMMON NORMALS: no acute distress and patient oriented x3 HENMT: COMMON NORMALS: normocephalic HEAD & SCALP: normocephalic Neck/C-Spine: COMMON NORMALS: no JVD Resp: COMMON NORMALS: normal respiratory effort, No retractions and No use of accessory muscles AUSCULTATION: wheezes Cardio: COMMON NORMALS: no JVD, regular rate, regular rhythm, S1 normal heart sound present and S2 normal heart sound present RATE: regular rate RHYTHM: regular rhythm HEART SOUNDS: S1 normal heart sound present and S2 normal heart sound present GI: COMMON NORMALS: Normal to inspection, nondistended, normoactive bowel sounds present, Soft to palpation, non-tender, No hepatosplenomegaly present, no masses and no bruits PALPATION: Yes Soft to palpation and Yes No hepatosplenomegaly present Extremity: COMMON NORMALS: capillary refill normal, no clubbing, cyanosis or edema, no calf tenderness and no pedal edema Neuro: COMMON NORMALS: patient oriented x3 Psych: COMMON NORMALS: mental status grossly normal Data : 02/01/20 09:53 02/01/20 03:14 Micro: Microbiology 01/31/20 20:47 Blood Culture - Preliminary Blood SPECIMEN COLLECTED 01/31/20 20:00 Blood Culture - Preliminary Blood SPECIMEN COLLECTED A&P Assessment and plan (1) Acute dyspnea: -Likely secondary to COPD exacerbation, mild pulmonary edema -CT angiogram of the chest shows diffuse groundglass and interstitial prominence in the lungs compatible with pneumonitis versus CHF -Of note patient has had 5 CTs since June 2019 -She has had an extensive work-up in her last admission January 2020, for infectious etiology given her persistently elevated leukocytosis, work-up was relatively unremarkable, COVID's have been negative, culture negative on this admission -Patient's MRSA sputum culture has been positive in the past, will retest mrsa, add mrsa coverage for possible MRSA pneumonia -Has had a long transbronchial biopsy of left upper lobe, benign bronchial mucosa, no malignancy 09/09/2019 -She previously had extensive evaluation including bronchoscopy and bronchial lavage with respiratory viral panel was negative, cytology negative, AFB smears and cultures negative, AFB PCR negative, urine histoplasma antigen negative, Coccidioides serologies negative, had evidence of mediastinal lymphadenopathy initially concerning for metastatic lesion, however EBUS no evidence of malignancy, HIV negative, treated for Strongyloides infection due to elevated eosinophils -Viral panel pending from last admission -Had an echocardiogram in July 2019 which showed an EF of 70%, no wall motion abnormalities, EKG normal sinus rhythm, troponins within normal limits -Has failed multiple inpatient regimens of antibiotics, will switch to vancomycin for MRSA coverage, switch to Levaquin -For her pleuritic-like chest pain, add colchicine, morphine as needed -Continue Solu-Medrol 40 mg IV every 8 hours -We will give Lasix 40 mg IV push once today Status: Acute (2) Leukocytosis: White count at the time of discharge had been 12,000 and up to 30.6 thousand in the ER, down to 13.6, left shift is also noted. She has had periodic issues with leukocytosis and when she originally presented on January 23 had similar values. She does normalize her white count at times. No reports of GI symptoms to suggest C. difficile but it something to keep in mind. Status: Acute Qualifiers: Leukocytosis type: unspecified Qualified Code(s): D72.829 - Elevated white blood cell count, unspecified (3) Infiltrate of lung present on imaging of chest: Diffuse lower lobe groundglass opacities noted on CT imaging. Not as appreciable on chest x-ray per my interpretation. Of note this is somewhere between 6 and 8 CTAs of the chest that she has had this year. The etiology for these is unclear. She is again rapid COVID test negative. See summary from Dr. Driscoll's discharge summary on January 28 of all of the evaluation that she has had this year. Status: Acute (4) Schizoaffective disorder, bipolar type: Status: Acute (5) Borderline personality disorder: Status: Acute (6) Chronic anxiety: Status: Acute (7) Insomnia due to anxiety and fear: Status: Acute Additional A&P Information Observation admission for now Breathing treatments Increase back to 40 mg Solu-Medrol IV every 8 hours Broaden antibiotic coverage to vancomycin the Levaquin Recheck CBC in the morning Has an appointment scheduled to see Dr. 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
[2020-02-01] MEDS: hyDROXYzine 25 mg Capsule 100 MG PO (14:12)
--- NOTE | 2020-02-01 14:30 | ECG_ITS ---
[facility] Test Date: 2020-02-01 Pat Name: Latesha Wilhelm Department: Room: 253 Gender: Female Hand Reamer: : 1965 Requested By: Rubén Brush Order Number: [id number] Alice MD: Frances Loja M.D. Measurements Intervals [place] Rate: 82 P: 47 WV: 138 QRS: 30 QRSD: 97 T: 43 QT: 392 QTc: 459 Interpretive Statements SINUS RHYTHM WARNING: DATA QUALITY MAY AFFECT INTERPRETATION Compared to ECG 02/01/2020 01:34:11 No significant changes Electronically Signed On 02-02-2020 18:14:09 CDT by Frances Loja M.D. [email or web address] Twitter [id number] f
[2020-02-01] MEDS: FUROsemide 10 mg/mL SDV 4mL 40 MG IVP (14:39)
[2020-02-01] MEDS: ondansetron 2 mg/ML SDV 2 mL 4 MG IVP (17:59)
[2020-02-01] MEDS: budesonide 0.5 mg/2 mL Neb 0.25 MG INHALATION (20:40)
[2020-02-01] MEDS: atorvastatin 40 mg Tablet PO (21:12)
[2020-02-01] MEDS: quetiapine 300 mg Tablet PO (21:12)
[2020-02-01] MEDS: trazodone 100 mg Tablet 200 MG PO (21:12)
[2020-02-02 01:04] VITALS: RESP 18
[2020-02-02] MEDS: morphine 4 mg/mL SDV 1 mL 2 MG IVP (01:04)
[2020-02-02] MEDS: sucralfate 1 gm Tablet PO (02:31)
[2020-02-02] MEDS: sodium chloride 0.9% 1,000 ML 100 ML IV (02:33)
[2020-02-02 03:47] LABS: Hematocrit 41.1 % (37.0-47.0); Hemoglobin 12.9 g/dL (11.5-15.3); Mean Corpuscular HGB Conc 31.4 g/dL (30.0-36.0); Mean Corpuscular Hemoglobin 27.3 pg (28.0-34.0); Mean Corpuscular Volume 87.1 fL (81-99); Mean Platelet Volume 10.3 fL (7.4-10.4); Nucleated Red Blood Cells % 0 %; Platelet Count 192 10^3/cmm (130-400); Red Blood Count 4.72 10^6/uL (4.1-5.3); White Blood Count 19.6 10^3/uL (4.0-10.0)
[2020-02-02 03:58] LABS: Basophils % 0.2 %; Lymphocytes # 0.9 10^3/uL (0.8-4.8); Lymphocytes % 4.6 %; Monocytes # 0.6 10^3/uL (0.2-0.9); Monocytes % 2.9 %; Neutrophils # 17.88 10^3/uL (1.8-7.7); Neutrophils % 90.7 %
[2020-02-02 04:00] VITALS: BP 143/67; PULSE 68; RESP 18; TEMP 36.8; O2SAT 97
[2020-02-02 04:12] LABS: Blood Urea Nitrogen 25 mg/dL (6-20); Calcium 8.5 mg/dL (8.5-10.5); Carbon Dioxide 22 mmol/L (22-29); Chloride 104 mmol/L (98-107); Glomerular Filtration Rate 87.9 mL/min (90-130); Glucose 199 mg/dL (65-115); Magnesium 2.3 mg/dL (1.7-2.3); Osmolality Calculated 284 mOsm/kg (285-295); Phosphorus 2.8 mg/dL (2.5-4.5); Sodium 136 mmol/L (136-145)
[2020-02-02 04:14] LABS: Anion Gap 14.7 (5-19); Potassium 4.7 mmol/L (3.5-5.1)
[2020-02-02 04:16] LABS: Procalcitonin 0.03 ng/mL (0-0.5)
[2020-02-02] MEDS: levoFLOXacin 750 mg Tablet PO (05:33)
[2020-02-02] MEDS: LORazepam 0.5 mg Tablet PO (05:36)
--- NOTE | 2020-02-02 06:15 | PC.NURSE ---
SHIFT SUMMARY Has rested well tonight. Has been medicated with IV Morphine and po Ativan prn as pt requests. Accidentally pulled IV out this morning and attempting to get restarted. Pt says is difficult to get IV access. + preliminary bld culture was called during night and was notified. Pt is receiving IV Vanc and po Levaquin.
[2020-02-02 07:23] VITALS: BP 140/64; PULSE 69; RESP 20; TEMP 36.9; O2SAT 96
--- NOTE | 2020-02-02 07:45 | PC.NURSE ---
0715 - AMA- Patient states she has a family emergency, spouse is being transferred to [place] for Blood clots, and she needs to leave. I explained that physician will round with her and asked she would like to wait for him. she states no that she needs to leave now. I asked if she would like AMA paperwork she states yes. AMA paperwork signed, physician notified. NESTOR, LEE ANN
[2020-02-02 07:57] VITALS: BP 140/64; PULSE 69; RESP 20; TEMP 36.9; O2SAT 96
--- NOTE | 2020-02-02 13:31 | P.DS_ITS ---
Discharge Providers Date of Admission: 02/01/20 15:29 Date of Discharge: February 02, 2020 Attending Provider at Admission: Kristyn Florian MD Attending Provider at Discharge: Rubén Brush MD Primary Care Provider: AMANDEEP Barclay Diagnoses at Discharge Discharge Diagnosis (1) Acute dyspnea: Status: Acute (2) Leukocytosis: Status: Acute Qualifiers: Leukocytosis type: unspecified Qualified Code(s): D72.829 - Elevated white blood cell count, unspecified (3) Infiltrate of lung present on imaging of chest: Status: Acute (4) Schizoaffective disorder, bipolar type: Status: Acute (5) Borderline personality disorder: Status: Acute (6) Chronic anxiety: Status: Acute (7) 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 For patient's acute dyspnea, likely secondary to COPD and pulmonary edema, savannah ortiz had a CT angiogram of the chest which showed diffuse groundglass and interstitial prominence in the lungs compatible with pneumonitis versus CHF, she has had 5 CTs in June 2019, she had an extensive work-up on her last admission January 2020 for infectious etiology given her persistently elevated leukocytosis, work-up was relatively unremarkable, COVID's have been negative, cultures have been negative on previous admissions, her MRSA sputum culture was positive in the past, she had a transbronchial biopsy of left upper lobe, benign bronchial mucosa, no malignancy 09/09/2019, she previously had extensive evaluation including bronchoscopy and bronchial lavage with respiratory viral panel was negative, cytology negative, AFB smears and cultures negative, AFB PCR negative, urine histoplasma antigen negative, Coccidioides serologies negative, had evidence of mediastinal lymphadenopathy initially concerning for metastatic lesion, however EBUS no evidence of malignancy, HIV negative, treated for Strongyloides infection due to elevated eosinophils. -Viral panel pending from last admission -Had an echocardiogram in July 2019 which showed an EF of 70%, no wall motion abnormalities, EKG normal sinus rhythm, troponins within normal limits -Has failed multiple inpatient regimens of antibiotics Patient was admitted to [facility] for shortness of breath secondary to COPD exacerbation, diastolic CHF exacerbation, and concerns for MRSA pneumonia. Patient was admitted to the general medical floors, received vancomycin Levaquin for antibiotic therapy, oxygen therapy, steroid therapy, and clinically monitored. Patient clinically improved, however the morning of 02/02/2020 before I could see the patient, she reported to the nurses that she had a family emergency, and she left AGAINST MEDICAL ADVICE. I advised nursing staff to let her know, that we are worried about significant MRSA pneumonia, she will require continued hospitalization to monitor sputum cultures and blood cultures and clinical status, she has significant morbidity and mortality, high risk of intubation, high risk of ICU admission, high risk of if she were to leave the hospital. Patient voiced understanding, all questions answered, left AGAINST MEDICAL ADVICE. I was notified by the lab, that patient's 2 out of 3 blood cultures are positive for gram-positive cocci, the lab is working on and identification, I will let nursing staff know to call the patient, check up on her, advise her to come back to the emergency room. During hospitalization, patient complained of chest wall pain, had a cardiac work-up which was unremarkable, EKG normal sinus rhythm, troponin within normal limits, had an echo in 2019 which showed an EF of 70%, I felt that her chest pain was likely chest wall pain was more pleuritic in nature. She had an allergy to aspirin, NSAIDs, seems like her chest pain improved with colchicine. Patient left AGAINST MEDICAL ADVICE. Physical Exam Narrative: EXAM NARRATIVE: Patient was not examined on discharge, as she left AGAINST MEDICAL ADVICE Discharge Data Data Completed and Pending: Completed Studies During Hospitalization Category Date Time Status CT angio chest PE protcl [id number] Stat Cat Scan 01/31/20 21:21 Completed XR chest 1V mary ble [id number] Stat Exams 01/31/20 21:21 Completed Pending at discharge Category Date Time Status Blood Culture Sta t Lab 01/31/20 20:47 Results Labs from last 24 hours 02/02/20 02/02/20 02/02/20 03:13 03:13 03:13 WBC 19.6 H RBC 4.72 Hgb 12.9 Hct 41.1 MCV 87.1 MCH 27.3 L MCHC 31.4 RDW 15.0 Plt Count 192 MPV 10.3 Neut % (Auto) 90.7 Lymph % (Auto) 4.6 Crook % (Auto) 2.9 Eos % (Auto) 0.0 Baso % (Auto) 0.2 Neut # (Auto) 17.88 H Lymph # (Auto) 0.9 Crook # (Auto) 0.6 Eos # (Auto) 0.0 Baso # (Auto) 0.0 Nucleated RBC % (a uto) 0 Nucleated RBCs # 0.0 Sodium Potassium Chloride Carbon Dioxide Anion Gap BUN Creatinine GFR Calculation Glucose Calculated Osmolal ity Calcium Phosphorus 2.8 Magnesium 2.3 Procalcitonin 0.03 02/02/20 03:13 WBC RBC Hgb Hct MCV MCH MCHC RDW Plt Count MPV Neut % (Auto) Lymph % (Auto) Crook % (Auto) Eos % (Auto) Baso % (Auto) Neut # (Auto) Lymph # (Auto) Crook # (Auto) Eos # (Auto) Baso # (Auto) Nucleated RBC % (a uto) Nucleated RBCs # Sodium 136 Potassium 4.7 Chloride 104 Carbon Dioxide 22 Anion Gap 14.7 BUN 25 H Creatinine 0.7 GFR Calculation 87.9 L Glucose 199 H Calculated Osmolal ity 284 L Calcium 8.5 Phosphorus Magnesium Procalcitonin Vitals: Last Vital Signs Temp 98.4 F 02/02/20 07:57 Pulse 69 02/02/20 07:57 Resp 20 H 02/02/20 07:57 BP 140/64 02/02/20 07:57 Pulse Ox 96 02/02/20 07:57 Discharge Plan Discharge Patient Disposition: Left Against Medical Advice Condition: Stable Prescriptions: No Action loratadine 10 mg tablet 10 mg PO DAILY Qty: 90 RF: 0 polyethylene glycol 3350 [Miralax] 17 gram/dose powder 17 gm PO DAILY PRN (Reason: constipation) RF: 0 ipratropium-albuterol 0.5 mg-3 mg(2.5 mg base)/3 mL solution for nebulization 3 ml INHALATION Q4H PRN (Reason: Shortness Of Breath) RF: 0 aspirin 81 mg tablet,delayed release (DR/EC) 81 mg PO DAILY RF: 0 lorazepam 0.5 mg tablet 0.5 mg PO DAILY PRN (Reason: Anxiety) 30 Days Qty: 30 RF: 0 venlafaxine 75 mg capsule,extended release 24hr 75 mg PO BID RF: 0 Ingrezza 80 mg capsule 80 mg PO DAILY 1 Days RF: 2 hydroxyzine pamoate 50 mg capsule See Rx Instructions .ROUTE .COMPLEX Qty: 90 RF: 0 quetiapine [Seroquel] 300 mg tablet 300 mg PO .HS Qty: 30 RF: 1 sucralfate [Carafate] 1 gram tablet 1 gm PO Q6H Qty: 45 RF: 0 Trelegy Ellipta 100-62.5-25 mcg blister with device 1 inh INHALATION DAILY RF: 0 lamotrigine 200 mg tablet See Rx Instructions .ROUTE .COMPLEX 30 Days Qty: 90 RF: 1 levofloxacin [Levaquin] 750 mg tablet 750 mg PO DAILY 7 Days Qty: 7 RF: 0 prednisone 20 mg Tablet 20 mg PO DAILY 9 Days Qty: 11 RF: 0 lidocaine [Lidoderm] 5 % Adhesive Patch,Medicated 1 patch topical O12O12 Qty: 14 RF: 0 hydroxyzine pamoate 100 mg Capsule 100 mg PO BEDTIME RF: 0 promethazine [Promethegan] 25 mg suppository 25 mg WI Q12H PRN (Reason: Nausea And Vomiting) RF: 0 trazodone 100 mg tablet 200 mg PO BEDTIME 30 Days RF: 3 pantoprazole [Protonix] 40 mg tablet,delayed release (DR/EC) 40 mg PO DAILY 1 Days RF: 5 Discharge Date/Time: 02/02/20 07:20 Discharge Attestations Time Spent in Discharge Care*: less than 30 min Status at Discharge: Cognitive status at discharge: cognitively intact , Behavioral status at discharge: cooperative , Quality Metrics Clinical Quality Measures During this hospital stay, did patient experience: None Coding Level of Care Code Acute Agricultural Engineering 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
== END 2020-02-02 07:20 | disposition left against medical advice (07) | DRG 193 ==
LOC: ER 19:48 → MEDSURG 02-01 01:57
PROVIDERS: Admitting Provider Hospitalist; Emergency Provider Emergency Medicine; PCP Registered Nurse; Visit Provider Family Medicine
DX: J18.9 Pneumonia, unspecified organism (principal); I50.31 Acute diastolic (congestive) heart failure; J44.1 Chronic obstructive pulmonary disease with (acute) exacerbation; J44.0 Chronic obstructive pulmonary disease with (acute) lower respiratory infection; Z87.442 Personal history of urinary calculi; F60.3 Borderline personality disorder; F41.9 Anxiety disorder, unspecified; G89.29 Other chronic pain; M54.9 Dorsalgia, unspecified; N30.21 Other chronic cystitis with hematuria; K21.9 Gastro-esophageal reflux disease without esophagitis; N31.9 Neuromuscular dysfunction of bladder, unspecified; Z87.891 Personal history of nicotine dependence; Z99.81 Dependence on supplemental oxygen; F25.0 Schizoaffective disorder, bipolar type; F51.05 Insomnia due to other mental disorder; F40.9 Phobic anxiety disorder, unspecified; R91.8 Other nonspecific abnormal finding of lung field; Z86.14 Personal history of Methicillin resistant Staphylococcus aureus infection
CPT/HCPCS: 12345; 36415; 36600; 71045; 71275; 80048; 80053; 81003; 82803; 83605; 83735; 83880; 84100; 84145; 84484; 85025; 85378; 85610; 87040; 87205; 87426; 87804; 93005; 94640; 94664; 96372; 96375; 99283; G0378; J0696; J0743; J1650; J1940; J2270; J2405; J2920; J3370; J7030; J7050; J7512; J7611; J7626; Q0144; Q9967

== ENCOUNTER 2020-02-02 14:48 | Inpatient (IN) | payer MEDICARE, MEDICAID, SELFPAY ==
[2020-02-02] VITALS (11 sets, daily range): BP systolic 112–141; BP diastolic 69–84; PULSE 76–99; RESP 16–20; TEMP 36.6–37; O2SAT 93–98; BMI 32.8
--- NOTE | 2020-02-02 16:11 | P.HP_ITS ---
Providers/Chief Complaint Primary Care Provider: AMANDEEP Barclay Chief Complaint: RESP DISTRESS History of Present Illness Latesha Wilhelm is a 54 year old female with a past medical history of COPD, chronic back pain, GERD, recent hospitalization for COPD exacerbation, leukocytosis who presents back to [facility] due to complains of shortness of breath, and positive blood cultures Patient this morning left AGAINST MEDICAL ADVICE, as she was notified that her had blood clots in his lower extremities, however when she got home he was at home, it seems like they did an ultrasound and there was no blood clots, she says she is embarrassed and feels foolish that she went home. Since she has been at home, she continues to have shortness of breath, wheezing, fatigue, malaise. I had nurses call patient this afternoon, when lab notified me that 2 out of 3 of her blood cultures were positive for gram-positive cocci, as I was worried about MRSA pneumonia, I was worried for patient's wellbeing, so the nurses call her, she stated she was not feeling well so I advised her to come to the emergency room, she agreed. Review of Systems Const: Reports: fatigue and malaise; Denies: fever(s) or chills Eyes: Denies: change in vision or blurry vision ENMT: Denies: nasal congestion Card: Reports: chest pain; Denies: palpitations Resp: Reports: dyspnea; Denies: productive cough, non-productive cough or wheezing GI: Denies: abdominal pain, nausea, vomiting, hematemesis, diarrhea, constipation, hematochezia or melena : Denies: flank pain, dysuria or urinary frequency Musc: Denies: neck pain or back pain Skin/Breast: Denies: rash Neuro: Denies: headache(s), dizziness or vertigo Psych: Denies: anxiety or depression Endo: Denies: polyuria or polydipsia Medications/Allergies Home Medications Medication Instructions Recorded Confirmed Last Taken Type polyethylene glycol 3350 17 17 gm PO DAILY PRN gm 06/13/19 02/02/20 01/31/20 History gram/dose oral powder hydroxyzine pamoate 100 mg PO BEDTIME 09/07/19 02/02/20 01/31/20 History promethazine [Promethegan] 25 mg GA Q12H PRN 09/07/19 02/02/20 01/31/20 History Trelegy Ellipta 1 inh INHALATION DAILY 09/19/19 02/02/20 02/02/20 History pantoprazole [Protonix] 40 mg PO DAILY 1 Days tab 10/05/19 02/02/20 02/02/20 Rx trazodone 200 mg PO BEDTIME 30 Days tab 10/05/19 02/02/20 01/31/20 Rx ipratropium 0.5 mg-albuterol 3 mg 3 ml INHALATION Q4H PRN 11/06/19 02/02/20 02/02/20 History (2.5 mg base)/3 mL nebulization soln loratadine 10 mg tablet 10 mg PO DAILY #90 tab 11/19/19 02/02/20 02/02/20 Rx aspirin 81 mg tablet,delayed 81 mg PO DAILY 11/28/19 02/02/20 02/02/20 History release valbenazine 80 mg capsule 80 mg PO DAILY 1 Days cap 12/30/19 02/02/20 02/02/20 Rx lorazepam 0.5 mg tablet 0.5 mg PO DAILY PRN 30 Days #30 tab 01/09/20 02/02/20 02/02/20 Rx venlafaxine 75 mg capsule,extended 75 mg PO BID cap 01/21/20 02/02/20 02/02/20 History release 24 hr levofloxacin [Levaquin] 750 mg PO DAILY 7 Days #7 tab 01/29/20 02/02/20 02/02/20 Rx prednisone 20 mg PO DAILY 9 Days #11 tab 01/29/20 02/02/20 02/02/20 Rx 40 mg sucralfate 1 gram tablet 1 gm PO Q6H #45 tab 01/31/20 02/02/20 02/02/20 Rx Seroquel 300 mg PO BEDTIME 02/02/20 02/02/20 Unknown History hydroxyzine pamoate 50 mg PO TID PRN 02/02/20 02/02/20 02/02/20 History lamotrigine 200 mg PO DAILY 02/02/20 02/02/20 02/02/20 History Allergies Allergy/AdvReac Type Severity Reaction Status Date / Time Penicillins Allergy Severe ALGY-Anaphy Verified 02/02/20 15:00 laxis sulfamethoxazole Allergy Severe ALGY-Hives Verified 02/02/20 15:00 [From Bactrim] Tetracyclines Allergy Severe ALGY-Hives Verified 02/02/20 15:00 gabapentin [From Neurontin] Allergy Intermediate ADR-Halluci Verified 02/02/20 15:00 nating ketorolac [From Toradol] Allergy Intermediate ALGY-Rash Verified 02/02/20 15:00 lithium Allergy Intermediate ADR-Halluci Verified 02/02/20 15:00 nating fentanyl Allergy Mild rash Verified 02/02/20 15:00 adhesive tape Allergy Rash Verified 02/02/20 15:00 codeine Allergy GI Verified 02/02/20 15:00 haloperidol [From Haldol] Allergy unknown Verified 02/02/20 15:00 quetiapine [From Seroquel] Allergy Unknown Verified 02/02/20 15:00 trimethoprim [From Bactrim] Allergy ALGY-Hives Verified 02/02/20 15:00 ziprasidone [From Geodon] AdvReac Severe ADR-Halluci Verified 02/02/20 15:00 nating influenza virus vac qs AdvReac Mild ADR-Nausea Verified 02/02/20 15:00 19-20(4 yr up) cell derived [From Flucelvax Quad [id number] (PF)] risperidone [From Risperdal] AdvReac ADR-Halluci Verified 02/02/20 15:00 nating PFSH Acute PFSH: Medical History (Updated 02/02/20 @ 16:24 by Rubén Brush MD) Bladder stone Borderline personality disorder Chronic anxiety Chronic back pain greater than 3 months duration Chronic cystitis with hematuria COPD (chronic obstructive pulmonary disease) Foreign body in bladder GERD without esophagitis Neurogenic bladder Nicotine dependence, cigarettes, with other nicotine-induced disorders Quit in 2019 Oxygen dependent Schizoaffective disorder, bipolar type Urgency incontinence Surgical History H/O: hysterectomy History of appendectomy History of breast biopsy History of ureter stent Hx of cholecystectomy S/P bronchoscopy with biopsy Family History Other Asthma Cancer Diabetes Heart disease Social History Smoking and tobacco status: former smoker Quit status (tobacco): has quit using tobacco Year quit tobacco: 2020 - 1PPD x 25 Years Alcohol intake: never Lives independently: Yes Household members: spouse Marital status: Number of children: 3 Current occupational status: disabled History of recent travel: No Current gender identity: Female Female Reproductive History: Date of last menstrual period: 06/19/95 Vitals/I&O/Wt Last Vital Signs Temp 98.6 F 02/02/20 14:55 Pulse 81 02/02/20 15:36 Resp 18 02/02/20 15:36 BP 112/74 02/02/20 15:36 Pulse Ox 97 02/02/20 15:36 Weight last 48 hrs Weight 89.358 kg Physical Exam Const: COMMON NORMALS: no acute distress and patient oriented x3 GENERAL APPEARANCE: cooperative and comfortable HENMT: COMMON NORMALS: normocephalic HEAD & SCALP: normocephalic Eye: COMMON NORMALS: Equal, round and reactive pupils present and EOMs intact bilaterally GENERAL EYE: appearance normal, both eyes and all related structures PUPIL: Yes Equal, round and reactive pupils present DIRECT OPHTHALMOSCOPY: Yes no papilledema Neck/C-Spine: COMMON NORMALS: full ROM, no lymphadenopathy, no JVD and Thyroid normal THYROID: Thyroid normal Lymph: LYMPHATIC: no lymphadenopathy noted Resp: COMMON NORMALS: normal respiratory effort, No retractions and No use of accessory muscles AUSCULTATION: clear to auscultation bilaterally and wheezes Cardio: COMMON NORMALS: no JVD, regular rate, regular rhythm, S1 normal heart sound present, S2 normal heart sound present, No gallops present (Cardio), No clicks present (Cardio) and No murmurs present (Cardio) RATE: regular rate RHYTHM: regular rhythm HEART SOUNDS: S1 normal heart sound present and S2 normal heart sound present GI: COMMON NORMALS: Normal to inspection, nondistended, normoactive bowel sounds present, Soft to palpation, non-tender and No hepatosplenomegaly present PALPATION: Yes Soft to palpation and Yes No hepatosplenomegaly present Extremity: COMMON NORMALS: normal to inspection, full ROM and no pedal edema Neuro: COMMON NORMALS: patient oriented x3, CN's II-XII intact bilaterally, moves all extremities and no focal motor deficits Psych: COMMON NORMALS: mental status grossly normal, Normal thought process pr esent and cooperative THOUGHT PROCESS: Normal thought process present A&P Assessment and plan (1) Acute dyspnea: -Likely secondary to COPD exacerbation, mild pulmonary edema, concerns for MRSA pneumonia, with broad gram-positive bacteremia -CT angiogram of the chest shows diffuse groundglass and interstitial prominence in the lungs compatible with pneumonitis versus CHF -Of note patient has had 5 CTs since June 2019 -She has had an extensive work-up in her last admission January 2020, for infectious etiology given her persistently elevated leukocytosis, work-up was relatively unremarkable, COVID's have been negative, culture negative on this admission -Patient's MRSA sputum culture has been positive in the past, will retest mrsa, add mrsa coverage for possible MRSA pneumonia -Has had a long transbronchial biopsy of left upper lobe, benign bronchial mucosa, no malignancy 09/09/2019 -She previously had extensive evaluation including bronchoscopy and bronchial lavage with respiratory viral panel was negative, cytology negative, AFB smears and cultures negative, AFB PCR negative, urine histoplasma antigen negative, Coccidioides serologies negative, had evidence of mediastinal lymphadenopathy initially concerning for metastatic lesion, however EBUS no evidence of ma lignancy, HIV negative, treated for Strongyloides infection due to elevated eosinophils -Viral panel pending from last admission -Had an echocardiogram in July 2019 which showed an EF of 70%, no wall motion abnormalities, EKG normal sinus rhythm, troponins within normal limits -Has failed multiple inpatient regimens of antibiotics, will switch to vancomycin for MRSA coverage, switch to Levaquin follow 2 out of 3 positive blood cultures -For her pleuritic-like chest pain cardiac work-up was relatively unremarkable, troponins were unremarkable, EKG normal sinus rhythm, no acute ST-T wave artur nges, her last echocardiogram showed an EF of 70%, patient stated the colchicine was minimally helpful, continue morphine, try indomethacin -Continue Solu-Medrol 40 mg IV every 8 hours -Try Lasix 40 mg p.o. daily has a follow-up with Dr. Bray on Monday from hospital stay -Full code -Lovenox for DVT prophylaxis Status: Acute (2) COPD (chronic obstructive pulmonary disease): Status: Chronic Qualifiers: COPD type: unspecified COPD Qualified Code(s): J44.9 - Chronic obstructive pulmonary disease, unspecified (3) Leukocytosis: White count at the time of discharge had been 12,000 and up to 30.6 thousand in the ER, up to 19,000 this morning, left shift is also noted. She has had periodic issues with leukocytosis and when she originally presented on January 23 had similar values. She does normalize her white count at times. No reports of GI symptoms to suggest C. difficile but it something to keep in mind. Status: Acute Qualifiers: Leukocytosis type: unspecified Qualified Code(s): D72.829 - Elevated white blood cell count, unspecified (4) Gram-positive bacteremia: -2 out of 3 blood cultures positive for gram-positive cocci -Currently normotensive, no febrile episodes -We will continue vancomycin, await identification and sensitivities Status: Acute (5) Infiltrate of lung present on imaging of chest: Diffuse lower lobe groundglass opacities noted on CT imaging. Not as appreciable on chest x-ray per my interpretation. Of note this is somewhere between 6 and 8 CTAs of the chest that she has had this year. The etiology for these is unclear. She is again rapid COVID test negative. See summary from Dr. Driscoll's discharge summary on January 28 of all of the evaluation that she has had this year. 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
--- NOTE | 2020-02-02 16:37 | PC.NURSE ---
REPORT GIVEN TO SUMMER HAUSER.
--- NOTE | 2020-02-02 17:51 | ED_ITS ---
HPI - SOB/Dyspnea General: Chief Complaint: Shortness of Breath/Dyspnea Stated Complaint: RESP DISTRESS Time Seen by Provider: 02/02/20 15:14 Source: patient and old records reviewed Mode of arrival: EMS Limitations: no limitations History of Present Illness: HPI Narrative: Patient is a 54-year-old female who was admitted to this facility and left AGAINST MEDICAL ADVICE today. She was admitted for pneumonia with leukocytosis. The patient states that she thought her was going to be admitted to the hospital in [place] for pulmonary embolism so she wanted to be with him. He was not admitted and was discharged home. After she left the hospital her blood cultures resulted, and she had 2033 blood culture bottles test positive for gram-positive cocci. Her sputum had already tested positive for MRSA. The hospital is therefore called her to return to the hospital for IV antibiotics. She is here for that now. She says her symptoms remain about the same. No new symptoms. She still has some left-sided chest pain as well as trouble breathing. Associated symptoms: Reports chest pain; Deny abdominal pain, fever(s), nausea, palpitations, polydipsia, polyuria or vomiting Review of Systems General: Reports: 10 or more systems reviewed and unremarkable except in HPI and below Const: Denies: fever(s), chills or body aches Eyes: Denies: change in vision or blurry vision ENMT: Denies: throat pain, enlarged tonsils, odynophagia, hoarseness, mouth pain or swelling of lips/tongue Card: Reports: chest pain; Denies: palpitations, irregular heart rhythm, edema or swelling of feet/ankles Resp: Reports: dyspnea and non-productive cough; Denies: productive cough GI: Denies: abdominal pain, nausea or vomiting : Denies: flank pain, difficulty voiding, dysuria, urinary frequency, urinary urgency or urinary hesitancy Musc: Denies: neck pain, back pain or extremity swelling Skin/Breast: Denies: rash, pruritus or erythema Neuro: Denies: headache(s), numbness in extremities or weakness in extremities Endo: Denies: polyuria, polydipsia or tired all the time PFS ED PFSH: Medical History (Updated 02/02/20 @ 19:48 by Elva Weston MD, [facility] [place]) Bladder stone Borderline personality disorder Chronic anxiety Chronic back pain greater than 3 months duration Chronic cystitis with hematuria COPD (chronic obstructive pulmonary disease) Foreign body in bladder GERD without esophagitis Neurogenic bladder Nicotine dependence, cigarettes, with other nicotine-induced disorders Quit in 2019 Oxygen dependent Schizoaffective disorder, bipolar type Urgency incontinence Surgical History H/O: hysterectomy History of appendectomy History of breast biopsy History of ureter stent Hx of cholecystectomy S/P bronchoscopy with biopsy Family History Other Asthma Cancer Diabetes Heart disease Social History Smoking and tobacco status: former smoker Quit status (tobacco): has quit using tobacco Year quit tobacco: 2019 - PD x 25 Years Alcohol intake: never Lives independently: Yes Household members: spouse Marital status: Number of children: 3 Current occupational status: disabled History of recent travel: No Current gender identity: Female Female Reproductive History: Date of last menstrual period: 06/19/95 Physical Exam Const: COMMON NORMALS: no acute distress, average body habitus, patient oriented x3, no limitations, healthy appearing, alert and well nourished Neck/C-Spine: COMMON NORMALS: no meningeal signs and no JVD Resp: COMMON NORMALS: normal respiratory effort, No retractions, No use of accessory muscles, clear to auscultation bilaterally and percussion normal AUSCULTATION: clear to auscultation bilaterally PERCUSSION: percussion normal Cardio: COMMON NORMALS: no JVD, regular rate, regular rhythm, S1 normal heart sound present, S2 normal heart sound present, No gallops present (Cardio), No clicks present (Cardio), No murmurs present (Cardio), No rub (Cardio) and Peripheral pulses 2+ throughout RATE: regular rate RHYTHM: regular rhythm HEART SOUNDS: S1 normal heart sound present and S2 normal heart sound present PERIPHERAL PULSES: Peripheral pulses 2+ throughout GI: COMMON NORMALS: Normal to inspection, nondistended, normoactive bowel sounds present, Soft to palpation, non-tender, No hepatosplenomegaly present, no masses and no bruits PALPATION: Yes Soft to palpation and Yes No hepa tosplenomegaly present Extremity: COMMON NORMALS: normal to inspection, full ROM, capillary refill normal, no calf tenderness and no pedal edema Neuro: COMMON NORMALS: patient oriented x3 SENSORIUM/ORIENTATION: Yes alert MENINGEAL SIGNS: Yes no meningeal signs Skin: COMMON NORMALS: no rashes or lesions noted, no wounds, turgor normal, no jaundice, no petechiae and no mottling GENERAL SKIN EXAM: no rashes or lesions noted and turgor normal Course Consultations: Consultation #1: Dr. Brush, hospitalist. He kindly accepted the patient to his service Vital Signs: Vital signs: Vital Signs Temperature 98.2 F 02/02/20 17:32 Pulse Rate 78 02/02/20 17:32 Respiratory Rate 16 02/02/20 18:03 Blood Pressure 141/84 02/02/20 17:32 Pulse Oximetry 95 02/02/20 18:18 MDM - SOB/Dyspnea MDM Narrative: Medical decision making narrative: 55-year-old female who left the hospital AGAINST MEDICAL ADVICE earlier today because she thought her was sick. After she left the hospital her blood cultures grew out gram- positive cocci and so she was called back to come for IV antibiotics and further evaluation. She is therefore admitted to the hospital for IV antibiotics. Discharge Plan Discharge Patient Disposition: Admitted As Inpatient Admit Provider: Rubén Brush Clinical Impression: Gram-positive bacteremia, Community acquired pneumonia, Acute exacerbation of chronic obstructive airways disease Condition: Stable Interventions: ED Discharge Assessment Last Done: 02/02/20 17:35 ED Charges Last Done: 02/02/20 17:35 Discharge Date/Time: 02/02/20 17:37 Coding Level of Care Code ED Registry Nurse for Chg Fwd Exam Detailed
[2020-02-02] MEDS: venlafaxine ER (24HR) 75 mg Capsule PO (17:54)
[2020-02-02] MEDS: enoxaparin 40 mg/0.4 mL Syringe SUBCUT (17:54)
[2020-02-02] MEDS: sucralfate 1 gm Tablet PO ×2 (17:54→22:33)
[2020-02-02] MEDS: morphine 4 mg/mL SDV 1 mL 2 MG IVP ×2 (18:03→22:30)
[2020-02-02] MEDS: budesonide 0.5 mg/2 mL Neb INHALATION (20:01)
[2020-02-02] MEDS: ipratropium-albuterol 3 mL Neb INHALATION (20:01)
[2020-02-02] MEDS: LORazepam 0.5 mg Tablet PO (20:38)
[2020-02-02] MEDS: hyDROXYzine 25 mg Capsule 100 MG PO (20:39)
[2020-02-02] MEDS: trazodone 100 mg Tablet 200 MG PO (20:39)
[2020-02-02] MEDS: quetiapine 300 mg Tablet PO (20:39)
--- NOTE | 2020-02-02 21:50 | PC.PHAR ---
Pharmacokinetic dosing service Date: 02/02/20 Time: 2150 Objective: Patient: Latesha Wilhelm Floor: [id number] Age: 54 yo Serum creatinine: 0.7 mg/dL Height: 65.0 Inches Weight (kg): 89.358 Diagnosis: Relevant medical/social history: Cultures and sensitivities: Other labs: Assessment: IBW (kg): 57.00 Dosing wt(kg): 89.358 Estimated Creatinine clearance (ml/min): 84.6 CRCL method: Cockcroft and Gault using ibw(default). Drug selected: Vancomycin Loading dose (mg): 0 Vd (liters): 80.4 (factor used: 0.9 L/kg) Lenin (hr-1): 0.075 Half life (hrs): 9.24 Recommended dose: 1500 mg Interval: 12 hrs Infusion time (hrs): 1.5 Predicted peak (mcg/mL): 29.7 Predicted trough (mcg/mL): 13.51 Total body weight is being used for vancomycin dosing. Renal function is stable [ ] /unstable [ ] Recommendations: Give Vancomycin 1500 mg q 12 hrs with an expected Cpeak of 29.7 mcg/ml and an expected Ctrough of 13.51 mcg/ml Renal dosing of other antibiotics (review renal dosing of other medications and list guidelines here): Thank you for the consult, will continue to follow. Signature: Denisse Urbina [facility]
[2020-02-03] VITALS (21 sets, daily range): BP systolic 104–131; BP diastolic 65–73; PULSE 81–96; RESP 14–20; TEMP 36.6–37.2; O2SAT 93–99
[2020-02-03] MEDS: ipratropium-albuterol 3 mL Neb INHALATION ×7 (00:04→23:01)
[2020-02-03] MEDS: morphine 4 mg/mL SDV 1 mL 2 MG IVP ×5 (02:38→19:32)
[2020-02-03 03:39] LABS: Basophils # 0.1 10^3/uL (0.0-0.1); Basophils % 0.2 %; Hematocrit 38.9 % (37.0-47.0); Hemoglobin 12.3 g/dL (11.5-15.3); Lymphocytes # 1.8 10^3/uL (0.8-4.8); Mean Corpuscular HGB Conc 31.6 g/dL (30.0-36.0); Mean Corpuscular Hemoglobin 28.5 pg (28.0-34.0); Mean Corpuscular Volume 90.3 fL (81-99); Mean Platelet Volume 10.6 fL (7.4-10.4); Monocytes # 1.4 10^3/uL (0.2-0.9); Monocytes % 4.5 %; Neutrophils % 86.9 %; Nucleated Red Blood Cells % 0 %; Platelet Count 265 10^3/cmm (130-400); Red Blood Count 4.31 10^6/uL (4.1-5.3); Red Cell Distribution Width 15.5 % (12.1-15.1); White Blood Count 29.9 10^3/uL (4.0-10.0)
[2020-02-03 04:00] LABS: Alanine Aminotransferase 16 U/L (0-33); Albumin Level 3.7 g/dL (3.5-5.2); Alkaline Phosphatase 111 IU/L (35-105); Anion Gap 12.6 (5-19); Aspartate Amino Transferase 11 U/L (0-32); Blood Urea Nitrogen 23 mg/dL (6-20); Calcium 8.6 mg/dL (8.5-10.5); Carbon Dioxide 26 mmol/L (22-29); Chloride 105 mmol/L (98-107); Glomerular Filtration Rate 87.9 mL/min (90-130); Glucose 159 mg/dL (65-115); Magnesium 2.3 mg/dL (1.7-2.3); Osmolality Calculated 288 mOsm/kg (285-295); Phosphorus 3.5 mg/dL (2.5-4.5); Potassium 4.6 mmol/L (3.5-5.1); Sodium 139 mmol/L (136-145); Total Bilirubin 0.2 mg/dL (0.15-1.2); Total Protein 5.7 g/dL (6.6-8.7)
[2020-02-03 04:07] LABS: Procalcitonin 0.04 ng/mL (0-0.5)
[2020-02-03] MEDS: levoFLOXacin 750 mg Tablet PO (05:34)
[2020-02-03] MEDS: sucralfate 1 gm Tablet PO ×4 (05:34→20:56)
--- NOTE | 2020-02-03 05:56 | PC.NURSE ---
SHIFT SUMMARY Has had a good night. Requests prn Morphine for left chest pain. Has been hungry all night and has had several snacks and drinks. Receiving IV antibiotics. Urinating well. Had one accident and had to have complete linen change. Says if she doesn't get up as soon as she needs to urinate she sometimes is incont
--- NOTE | 2020-02-03 07:00 | XR_ITS ---
WS: [id number] EXAM: AP CHEST: PORTABLE UPRIGHT DATE OF EXAM: 02/03/2020, 0621 hours COMPARISON: Chest x-rays from 01/31/2020, 01/29/2020 12/06/2019 HISTORY: Patient is 54 years old with follow-up groundglass/interstitial infiltrate. FINDINGS: The cardiac silhouette is normal in size. The mediastinal contours are normal. The pulmonary vas cularity is congested. Whether this is interstitial infiltrate or fluid is uncertain. Has not progre ssed in the interim. There is no effusion or pneumothorax. No acute bony abnormality is seen. XR/XR chest 1V portable 60901 IMPRESSION: Persistent pulmonary vascular congestion. Coarse interstitial markings bilatera lly most likely related to vascular congestion rather than interstitial pneumon ia. Correlation with symptomatology recommended. No florid pulmonary edema. No consolidative infiltrate, effusion or pneumothorax.
[2020-02-03] MEDS: budesonide 0.5 mg/2 mL Neb INHALATION ×2 (08:23→19:54)
[2020-02-03] MEDS: venlafaxine ER (24HR) 75 mg Capsule PO ×2 (08:45→17:18)
[2020-02-03] MEDS: polyethylene glycol 3350 Pkt 17 gm PO (08:45)
[2020-02-03] MEDS: lamoTRIgine 100 mg Tablet 200 MG PO (08:45)
[2020-02-03] MEDS: FUROsemide 40 mg Tablet PO (08:45)
[2020-02-03] MEDS: pantoprazole DR 40 mg Tablet PO (08:46)
[2020-02-03] MEDS: loratadine 10 mg Tablet PO (08:46)
[2020-02-03] MEDS: aspirin 81 mg EC Tablet PO (08:46)
--- NOTE | 2020-02-03 11:58 | PC.RESP ---
Pulmonary Rehab information sent to patient.
--- NOTE | 2020-02-03 13:44 | PM.PN ---
Subjective Subjective: Interval history: no new complaints today, chest pain relatively well controlled, no events overnight Medications: Reviewed: Yes Vitals/I&O/Wt Last Vital Signs Temp 98.4 F 02/03/20 11:32 Pulse 81 02/03/20 12:58 Resp 17 02/03/20 12:58 BP 111/65 02/03/20 11:32 Pulse Ox 97 02/03/20 12:58 02/02/20 02/03/20 02/03/20 22:59 06:59 14:59 Intake Total 240 / 240 730 / 970 880 / 880 Output Total 500 / 500 600 / 1100 500 / 500 Balance -260 / -260 130 / -130 380 / 380 Weight last 48 hrs Weight 89.358 kg Physical Exam Narrative: EXAM NARRATIVE: GEN: Awake, alert and oriented, no acute distress CVS: S1S2 N RS: CTA B/L anteriorly Abd: Soft, nt/nd , bs+ TRANSPLANT CASE MANAGER: no focal neuro deficits Data : 02/03/20 03:21 02/03/20 03:21 A&P Assessment and plan (1) Acute dyspnea: -Likely secondary to COPD exacerbation, mild pulmonary edema, concerns for MRSA pneumonia, with broad gram-positive bacteremia -CT angiogram of the chest shows diffuse groundglass and interstitial prominence in the lungs compatible with pneumonitis , however these findings date back to at least Jul 2019. 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 Spoke to Dr. Bray, patient likely needs a 2nd bronch, however her being on high dose steroids may cloud the results in case of organizing pneumonia. Will try her off steroids for the next week to 10 days and then plan for bronch with biopsy. -Full code -Lovenox for DVT prophylaxis Status: Acute (2) COPD (chronic obstructive pulmonary disease): Status: Chronic Qualifiers: COPD type: unspecified COPD Qualified Code(s): J44.9 - Chronic obstructive pulmonary disease, unspecified (3) Leukocytosis: White count at the time of discharge had been 12,000 and up to 30.6 thousand in the ER, up to 19,000 this morning, left shift is also noted. She has had periodic issues with leukocytosis and when she originally presented on January 23 had similar values. Likely to be margination from steroids Status: Acute Qualifiers: Leukocytosis type: unspecified Qualified Code(s): D72.829 - Elevated white blood cell count, unspecified (4) Gram-positive bacteremia: -2 out of 3 blood cultures positive for gram-positive cocci -Currently normotensive, no febrile episodes -We will continue vancomycin, await identification and sensitivities,l suspect contamination. repeat blood cx Status: Acute (5) Infiltrate of lung present on imaging of chest: Status: Acute (6) Schizoaffective disorder, bipolar type: Status: Acute (7) Chronic anxiety: Status: Acute (8) Insomnia due to anxiety and fear: Status: Acute Additional A&P Information Patient requires hospitalization, for acute dyspnea, gram-positive bacteremia, concerns for MRSA , pneumonia, full code Lovenox for DVT prophylaxis Attestations Medical Necessity Statement*: Patient requires hospitalization, for acute dyspnea, gram-positive bacteremia, concerns for MRSA , pneumonia, Coding Level of Care Code Acute Clinical Administrator for [facility] Diagnoses Acute dyspnea R06.00 COPD (chronic obstructive pulmonary disease) J44.9 COPD type: unspecified COPD Leukocytosis D72.829 Leukocytosis type: unspecified Gram-positive bacteremia R78.81 Infiltrate of lung present on imaging of chest R91.8 Schizoaffective disorder, bipolar type F25.0 Chronic anxiety F41.9 Insomnia due to anxiety and fear F51.05; F40.9
[2020-02-03] MEDS: LORazepam 0.5 mg Tablet PO (17:13)
[2020-02-03] MEDS: enoxaparin 40 mg/0.4 mL Syringe SUBCUT (17:19)
[2020-02-03] MEDS: hyDROXYzine 25 mg Capsule 100 MG PO (20:56)
[2020-02-03] MEDS: trazodone 100 mg Tablet 200 MG PO (20:57)
[2020-02-03] MEDS: quetiapine 300 mg Tablet PO (20:57)
[2020-02-03 22:00] LABS: Vancomycin Trough 13.1 ug/mL (10-15)
[2020-02-04] VITALS (15 sets, daily range): BP systolic 109–135; BP diastolic 72–82; PULSE 68–82; RESP 14–22; TEMP 36.6–36.9; O2SAT 94–98
[2020-02-04] MEDS: morphine 4 mg/mL SDV 1 mL 2 MG IVP ×4 (00:34→13:50)
[2020-02-04] MEDS: ipratropium-albuterol 3 mL Neb INHALATION ×3 (03:08→11:17)
[2020-02-04 05:04] LABS: Basophils # 0.1 10^3/uL (0.0-0.1); Basophils % 0.3 %; Eosinophils # 0.1 10^3/uL (0.0-0.8); Eosinophils % 0.3 %; Hematocrit 38.7 % (37.0-47.0); Hemoglobin 11.9 g/dL (11.5-15.3); Lymphocytes # 3.1 10^3/uL (0.8-4.8); Lymphocytes % 12.8 %; Mean Corpuscular HGB Conc 30.7 g/dL (30.0-36.0); Mean Corpuscular Volume 91.1 fL (81-99); Mean Platelet Volume 10.3 fL (7.4-10.4); Monocytes # 1.7 10^3/uL (0.2-0.9); Neutrophils # 18.43 10^3/uL (1.8-7.7); Neutrophils % 76.6 %; Nucleated Red Blood Cells % 0 %; Platelet Count 243 10^3/cmm (130-400); Red Blood Count 4.25 10^6/uL (4.1-5.3); Red Cell Distribution Width 15.9 % (12.1-15.1)
[2020-02-04 05:27] LABS: Alanine Aminotransferase 14 U/L (0-33); Albumin Level 3.3 g/dL (3.5-5.2); Alkaline Phosphatase 97 IU/L (35-105); Anion Gap 12.8 (5-19); Aspartate Amino Transferase 9 U/L (0-32); Blood Urea Nitrogen 23 mg/dL (6-20); Calcium 8.4 mg/dL (8.5-10.5); Carbon Dioxide 24 mmol/L (22-29); Chloride 105 mmol/L (98-107); Globulin 2.5 g/dL (1.3-4.6); Glomerular Filtration Rate 87.9 mL/min (90-130); Glucose 131 mg/dL (65-115); Magnesium 2.1 mg/dL (1.7-2.3); Osmolality Calculated 285 mOsm/kg (285-295); Phosphorus 2.9 mg/dL (2.5-4.5); Potassium 3.8 mmol/L (3.5-5.1); Sodium 138 mmol/L (136-145); Total Bilirubin 0.2 mg/dL (0.15-1.2); Total Protein 5.8 g/dL (6.6-8.7)
[2020-02-04 05:31] LABS: Procalcitonin 0.04 ng/mL (0-0.5)
[2020-02-04] MEDS: levoFLOXacin 750 mg Tablet PO (05:34)
[2020-02-04] MEDS: sucralfate 1 gm Tablet PO ×2 (05:34→11:24)
[2020-02-04] MEDS: budesonide 0.5 mg/2 mL Neb INHALATION (07:53)
[2020-02-04] MEDS: venlafaxine ER (24HR) 75 mg Capsule PO (09:14)
[2020-02-04] MEDS: pantoprazole DR 40 mg Tablet PO (09:14)
[2020-02-04] MEDS: aspirin 81 mg EC Tablet PO (09:15)
[2020-02-04] MEDS: lamoTRIgine 100 mg Tablet 200 MG PO (09:15)
[2020-02-04] MEDS: FUROsemide 40 mg Tablet PO (09:15)
[2020-02-04] MEDS: loratadine 10 mg Tablet PO (09:15)
--- NOTE | 2020-02-04 14:52 | P.DS_ITS ---
Discharge Providers Date of Admission: 02/03/20 13:39 Date of Discharge: February 04, 2020 Attending Provider at Admission: Rubén Brush MD Attending Provider at Discharge: Jessy Gagnon MD Primary Care Provider: AMANDEEP Barclay Diagnoses at Discharge Discharge Diagnosis (1) Acute dyspnea: Status: Acute (2) COPD (chronic obstructive pulmonary disease): Status: Chronic Qualifiers: COPD type: unspecified COPD Qualified Code(s): J44.9 - Chronic obstructive pulmonary disease, unspecified (3) Leukocytosis: Status: Acute Qualifiers: Leukocytosis type: unspecified Qualified Code(s): D72.829 - Elevated white blood cell count, unspecified (4) Gram-positive bacteremia: Status: Acute (5) Infiltrate of lung present on imaging of chest: Status: Acute (6) Schizoaffective disorder, bipolar type: Status: Acute (7) Chronic anxiety: Status: Acute (8) Insomnia due to anxiety and fear: Status: Acute (9) Pneumocystis jiroveci pneumonia: Status: Acute Problem details: presumptive Reason for Visit Reason for Visit: RESP DISTRESS Hospital Course Discharge Summary: 54-year-old lady with history of COPD on 2-1/2-3 L of oxygen by nasal cannula at home, following up with pulmonology in office, having recently quit smoking, was admitted recently 01/23-01/28 after presenting with increasing shortness of breath, wheezing, coughing, with some sharp chest discomfort in different areas of her chest, without suggestion of acute cardiac ischemia, without finding of PE on CTA, was found to be in COPD exacerbation, and was also seen at [place] emergency department the day prior and started on oral steroid. On CTA admission also found to have bilateral patchy infiltrates, due to which was empirically covered for community-acquired pneumonia with ceftriaxone and azithromycin, and assessed for COVID-19, rapid flu, as well as extended viral panel was sent out as well. Nonspecific bilateral chest infiltrates versus pneumonitis were noted on CT dating to at least July 2019. She had previously had extensive evaluation including bronchoscopy and BAL and lavage, with respiratory viral panels negative, cytology negative, AFB smears and cultures negative, AFB PCR negative. Urine histoplasma antigen negative, Coccidioides serology negative. With noted mediastinal lymphadenopathy, initially concerning for metastatic lesion, however, on EBUS had no evidence of malignancy. HIV screen was negative. JOSE reported previously negative, recheck during this hospitalization and found to be hairline elevated at 1:40 titer with negative <1:40. Significance of this is not clear. PJP PCR was sent from expectorated sputum and was negative. Beta glucan was also sent on this admission and returned at elevated value of 170. Overall significance of this elevated reading is not clear. Patient does have some clinical signs compatible with PJP such as findings of bilateral pneumonitis type pattern and worsening subjective shortness of breath at least since July 2019. No other alternate explanation has been found. At one point she had elevated eosinophils and on the last admission in early January was even given ivermectin empirically [id number] in case of strongyloidosis hypereosinophilic syndrome. However this has not made any significant change. She has been on multiple rounds of antibiotics. MRSA was noted on the sputum culture at this time, however patient does not have any clinical signs compati ble with MRSA pneumonia. There is no gross consolidation. There is no fever. CT looks essentially unchanged since July, all of which are incompatible with a clinical picture of MRSA pneumonia. She received a few days of iv avncomycin. More than likely this presents colonization. For the possibility of PJP, at BDG value of 170 it is not entirely clear if this could potentially be something significant. There is data to suggest that elevated beta glucan levels in clinically compatible settings may correlate with a diagnosis of pneumocystis pneumonia. (Clinical Performance of (1,3) Beta-D Glucan for the Diagnosis of Pneumocystis Pneumonia (PCP) in Cancer Patients Tested With PCP Polymerase Chain Reaction.Clinical Infectious Diseases, Volume 69, Issue 8, 02 April 2019 ). While typically this also involves a positive PCP PCR, of note the specimen of choice tends to be either induced sputum or a bronchoscopic specimen. In the patient's case this is an expectorated specimen. With PCP PCR alone as the reference method, BDG > 80 pg/mL has a sensitivity of 69.8%, specificity of 81.2%. At >200 pg/mL in patients with a positive PCR and a compatible PCP clinical syndrome, BDG had a sensitivity of 70%, specificity of 100%, PPV of 100%. Patient's value of 170 falls between the 80-200 range, and she has a negative expectorated PCR however given that she has a consistent CT picture and no other explanation found after extensive evaluation for her pneumonitis-like pattern, would prefer to go ahead and treat her as a mild to moderate case of PCP with atovaquone 750 mg every 12 hours for 21 days. Above was discussed with her outpatient due diligence coordinator Dr. Bray. She is planned for a repeat bronchoscopy, hopefully sometime next week off of steroids. Organizing pneumonia remains high on the differentials, therefore steroids have been discontinued at this time so as not to cloud results from a bronchoscopic evaluation. At time of bronch, she should once again be tested for the pneumocystis PCR from a bronch specimen. If this turns out to be negative, atovaquone may be discontinued at this point. I estimate that repeat bronchoscopy and also send out testing for PJP will take at least 2-3 weeks to yield any results. Patient has been in and out of the hospital including ER with respiratory symptoms since early this year, therefore would prefer to treat presumptively at this point and follow closely to see if this resolves her symptoms and improves her CT findings. Atovaquone chosen over bactrim due to listed allergy. f/up with pulmonary and ID clinics Other hospital issues this admission included GPC + blood cx, eventually identified as Cons which were contaminants. This has been clarified with micro lab Physical Exam Narrative: EXAM NARRATIVE: GEN: Awake, alert and oriented, no acute distress CVS: S1S2 N RS: CTA B/L Abd: Soft, nt/nd , bs+ DENTAL BILLER: no focal neuro deficits Discharge Data Data Completed and Pending: Completed Studies During Hospitalization Category Date Time Status XR chest 1V mary ble [id number] Routine Exams 02/03/20 07:00 Completed Pending at discharge Category Date Time Status Blood Culture Sta t Lab 02/03/20 17:20 Results Complete Blood Co unt w/Auto AM LABS Lab 02/05/20 04:00 Ordered Comprehensive Met abolic Panel AM LA BS Lab 02/05/20 04:00 Ordered Magnesium AM LABS Lab 02/05/20 04:00 Ordered Phosphorus AM LAB S Lab 02/05/20 04:00 Ordered Procalcitonin AM LABS Lab 02/05/20 04:00 Ordered Labs from last 24 hours 02/04/20 02/04/20 02/04/20 04:50 04:50 04:50 WBC 24.0 H RBC 4.25 Hgb 11.9 Hct 38.7 MCV 91.1 MCH 28.0 MCHC 30.7 RDW 15.9 H Plt Count 243 MPV 10.3 Neut % (Auto) 76.6 Lymph % (Auto) 12.8 Stearns % (Auto) 7.0 Eos % (Auto) 0.3 Baso % (Auto) 0.3 Neut # (Auto) 18.43 H Lymph # (Auto) 3.1 Stearns # (Auto) 1.7 H Eos # (Auto) 0.1 Baso # (Auto) 0.1 Nucleated RBC % (a uto) 0 Nucleated RBCs # 0.0 Sodium 138 Potassium 3.8 Chloride 105 Carbon Dioxide 24 Anion Gap 12.8 BUN 23 H Creatinine 0.7 GFR Calculation 87.9 L Glucose 131 H Calculated Osmolal ity 285 Calcium 8.4 L Phosphorus 2.9 Magnesium 2.1 Total Bilirubin 0.2 AST 9 ALT 14 Alkaline Phosphata se 97 Total Protein 5.8 L Albumin 3.3 L Globulin 2.5 Procalcitonin 0.04 Vancomycin Trough 02/03/20 20:30 WBC RBC Hgb Hct MCV MCH MCHC RDW Plt Count MPV Neut % (Auto) Lymph % (Auto) Stearns % (Auto) Eos % (Auto) Baso % (Auto) Neut # (Auto) Lymph # (Auto) Stearns # (Auto) Eos # (Auto) Baso # (Auto) Nucleated RBC % (a uto) Nucleated RBCs # Sodium Potassium Chloride Carbon Dioxide Anion Gap BUN Creatinine GFR Calculation Glucose Calculated Osmolal ity Calcium Phosphorus Magnesium Total Bilirubin AST ALT Alkaline Phosphata se Total Protein Albumin Globulin Procalcitonin Vancomycin Trough 13.1 Vitals: Last Vital Signs Temp 98.5 F 02/04/20 11:35 Pulse 82 02/04/20 11:35 Resp 16 02/04/20 13:50 BP 128/82 02/04/20 11:35 Pulse Ox 96 02/04/20 11:35 Discharge Plan Discharge Patient Disposition: Home Condition: Stable Prescriptions: New atovaquone 750 mg/5 mL suspension 750 mg PO BID 21 Days Qty: 210 RF: 0 Continued loratadine 10 mg tablet 10 mg PO DAILY Qty: 90 RF: 0 polyethylene glycol 3350 [Miralax] 17 gram/dose powder 17 gm PO DAILY PRN (Reason: constipation) RF: 0 ipratropium-albuterol 0.5 mg-3 mg(2.5 mg base)/3 mL solution for nebulization 3 ml INHALATION Q4H PRN (Reason: Shortness Of Breath) RF: 0 aspirin 81 mg tablet,delayed release (DR/EC) 81 mg PO DAILY RF: 0 lorazepam 0.5 mg tablet 0.5 mg PO DAILY PRN (Reason: Anxiety) 30 Days Qty: 30 RF: 0 venlafaxine 75 mg capsule,extended release 24hr 75 mg PO BID RF: 0 Ingrezza 80 mg capsule 80 mg PO DAILY 1 Days RF: 2 sucralfate [Carafate] 1 gram tablet 1 gm PO Q6H Qty: 45 RF: 0 Trelegy Ellipta 100-62.5-25 mcg blister with device 1 inh INHALATION DAILY RF: 0 hydroxyzine pamoate 100 mg Capsule 100 mg PO BEDTIME RF: 0 promethazine [Promethegan] 25 mg suppository 25 mg [place] Q12H PRN (Reason: Nausea And Vomiting) RF: 0 trazodone 100 mg tablet 200 mg PO BEDTIME 30 Days RF: 3 pantoprazole [Protonix] 40 mg tablet,delayed release (DR/EC) 40 mg PO DAILY 1 Days RF: 5 lamotrigine 200 mg tablet 200 mg PO DAILY RF: 0 Seroquel 300 mg tablet 300 mg PO BEDTIME RF: 0 hydroxyzine pamoate 50 mg capsule 50 mg PO TID PRN (Reason: Anxiety) RF: 0 Discontinued levofloxacin [Levaquin] 750 mg tablet 750 mg PO DAILY 7 Days Qty: 7 RF: 0 prednisone 20 mg Tablet 20 mg PO DAILY 9 Days Qty: 11 RF: 0 Discharge Orders: Discharge Order (Routine); Ordered 02/04/20 Ordered By: Jessy Gagnon Referrals: Dara Tavera FNP [Primary Care Provider] - (Please call [facility] [place] and make an appt with your primary care provider. [phone]) Arina Bray MD [Physician] - 02/10/20 3:30 pm Discharge Diet: Usual diet Discharge Activity: Resume usual activity Patient Instructions: Atovaquone (By mouth), Sepsis (DC), Community-acquired Pneumonia (DC) Discharge Attestations Time Spent in Discharge Care*: greater than 30 min Specific Discharge Activities: Specific discharge activities: educating patient, discussing with pcp/other providers, documenting/other paperwork and evaluating patient/reviewing data Status at Discharge: Cognitive status at discharge: cognitively intact , Behavioral status at discharge: cooperative , Quality Metrics Clinical Quality Measures During this hospital stay, did patient experience: None Coding Level of Care Code Acute 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
== END 2020-02-04 17:02 | disposition home or self-care (01) | DRG 178 ==
LOC: ER 15:14 → MEDSURG 19:48
PROVIDERS: Admitting Provider Family Medicine; PCP Registered Nurse; Visit Provider Student in an Organized Health Care Education/Training Program
DX: B59 Pneumocystosis (principal); J44.0 Chronic obstructive pulmonary disease with (acute) lower respiratory infection; G89.29 Other chronic pain; M54.9 Dorsalgia, unspecified; K21.9 Gastro-esophageal reflux disease without esophagitis; Z87.442 Personal history of urinary calculi; F60.3 Borderline personality disorder; F41.9 Anxiety disorder, unspecified; N30.21 Other chronic cystitis with hematuria; N31.9 Neuromuscular dysfunction of bladder, unspecified; Z87.891 Personal history of nicotine dependence; Z99.81 Dependence on supplemental oxygen; F25.0 Schizoaffective disorder, bipolar type; F51.05 Insomnia due to other mental disorder; Z86.14 Personal history of Methicillin resistant Staphylococcus aureus infection; Z79.82 Long term (current) use of aspirin
CPT/HCPCS: 12345; 36415; 71045; 80053; 80202; 83735; 84100; 84145; 85025; 87040; 94640; 94664; 96372; 96375; 99282; G0378; J1650; J2270; J2920; J3370; J7050; J7626

== ENCOUNTER 2020-02-06 15:51 | Emergency (ER) | payer MEDICARE, MEDICAID, SELFPAY ==
--- NOTE | 2020-02-06 16:06 | PC.NURSE ---
EKG done at 1605 and shown to ER physician
[2020-02-06 16:07] VITALS: BP 125/66; PULSE 111; RESP 15; TEMP 36.8; O2SAT 97; BMI 32.4
--- NOTE | 2020-02-06 16:09 | XR_ITS ---
WS: [id number] EXAM: AP CHEST: PORTABLE UPRIGHT DATE OF EXAM: 02/06/2020, 1610 hours COMPARISON: Prior chest x-ray from 02/03/2020. HISTORY: Patient is 54 years old with shortness of breath. FINDINGS: The cardiac silhouette is normal in size. The mediastinal contours are normal. The pulmonary vas cularity is fairly normal on today's exam. Chronic lung changes are demonstrated. Some degree of und erlying fibrosis felt to be present. No area of consolidation is seen. There is no effusion or pneum othorax. No acute bony abnormality is seen. XR/XR chest 1V portable [id number] IMPRESSION: Chronic lung changes. No acute infiltrate.
--- NOTE | 2020-02-06 16:37 | W.ED.CHESTPA ---
Documented by User: AMANDEEP De La Rosa 02/06/20 16:39 HPI - Chest Pain General: Chief Complaint: Chest Pain Stated Complaint: SOB/ CP Time Seen by Provider: 02/06/20 15:58 History of Present Illness: HPI narrative: Patient arrived here by ambulance said that she has been getting increasingly short of breath since yesterday is worse today she said her home O2 sat was down in the 80s. Was just recently discharged from the hospital after 2-week stay. She is awaiting lab test results for pneumonitis. Patient denies smoking she is around her who does smoke. She does smell of vaping or hookah type smoke. But she denies any of this. complaint: other (Shortness of breath) Onset (ago): day(s) Timing of current episode: constant Prior episodes: Yes Onset: during rest Relieving factors: nothing Exacerbating factors: exertion Associated symptoms: Reports no associated symptoms and dyspnea; Deny abdominal pain, fever(s), nausea or vomiting Review of Systems Const: Denies: fever(s), chills or body aches Eyes: Denies: change in vision or blurry vision ENMT: Denies: throat pain or nasal congestion Card: Denies: chest pain or dyspnea on exertion Resp: Reports: dyspnea and chest congestion; Denies: productive cough or non-productive cough GI: Denies: abdominal pain, nausea or vomiting Musc: Denies: extremity pain Skin/Breast: Denies: rash Neuro: Denies: headache(s) Psych: Denies: anxiety or depression Wilbur/Lymph: Denies: easy bruising PFSH ED PFSH: Medical History (Updated 02/06/20 @ 18:27 by Ann Morgan) Bladder stone Borderline personality disorder Chronic anxiety Chronic back pain greater than 3 months duration Chronic cystitis with hematuria COPD (chronic obstructive pulmonary disease) Foreign body in bladder GERD without esophagitis Neurogenic bladder Nicotine dependence, cigarettes, with other nicotine-induced disorders Quit in 2019 Oxygen dependent Schizoaffective disorder, bipolar type Urgency incontinence Surgical History H/O: hysterectomy History of appendectomy History of breast biopsy History of ureter stent Hx of cholecystectomy S/P bronchoscopy with biopsy Family History Other Asthma Cancer Diabetes Heart disease Social History Smoking and tobacco status: former smoker Quit status (tobacco): has quit using tobacco Year quit tobacco: 2019 - 1PPD x 25 Years Alcohol intake: never Lives independently: Yes Household members: spouse Marital status: Number of children: 3 Current occupational status: disabled History of recent travel: No Current gender identity: Female Female Reproductive History: Date of last menstrual period: 06/19/95 Physical Exam Const: COMMON NORMALS: no acute distress, average body habitus and patient oriented x3 HENMT: COMMON NORMALS: normocephalic HEAD & SCALP: normal to inspection and normocephalic FACE & SINUS: normal facial exam Eye: COMMON NORMALS: conjunctivae normal GENERAL EYE: appearance normal, both eyes and all related structures CONJUNCTIVA: Yes conjunctivae normal Neck/C-Spine: COMMON NORMALS: no JVD Chest: COMMONS NORMALS: normal inspection of the chest Resp: COMMON NORMALS: normal respiratory effort and clear to auscultation bilaterally AUSCULTATION: clear to auscultation bilaterally Cardio: COMMON NORMALS: no JVD, regular rate and regular rhythm RATE: regular rate RHYTHM: regular rhythm GI: COMMON NORMALS: Normal to inspection, nondistended, normoactive bowel sounds present Extremity: COMMON NORMALS: normal to inspection and full ROM Neuro: COMMON NORMALS: patient oriented x3 Psych: APPEARANCE: Yes other (Appears anxious) Course Vital Signs: Vital signs: Vital Signs Temperature 98.3 F 02/06/20 16:07 Pulse Rate 96 02/06/20 17:09 Respiratory Rate 16 02/06/20 17:06 Blood Pressure 125/66 02/06/20 16:07 Pulse Oximetry 97 02/06/20 17:06 MDM - Chest Pain Lab Data: Labs: Lab Results 02/06/20 02/06/20 02/06/20 Range/Units 16:38 16:38 16:38 WBC 22.4 H (4.0-10.0) 10^3/ uL RBC 4.17 (4.1-5.3) 10^6/u L Hgb 11.8 (11.5-15.3) g/dL Hct 36.9 L (37.0-47.0) % MCV 88.5 (81-99) fL MCH 28.3 (28.0-34.0) pg MCHC 32.0 (30.0-36.0) g/dL RDW 15.8 H (12.1-15.1) % Plt Count 222 (130-400) 10^3/c mm MPV 9.9 (7.4-10.4) fL Neut % (Auto) 80.5 % Lymph % (Auto) 10.0 % [place] % (Auto) 5.8 % Eos % (Auto) 1.8 % Baso % (Auto) 0.4 % Neut # (Auto) 18.03 H (1.8-7.7) 10^3/u L Lymph # (Auto) 2.2 (0.8-4.8) 10^3/u L [place] # (Auto) 1.3 H (0.2-0.9) 10^3/u L Eos # (Auto) 0.4 (0.0-0.8) 10^3/u L Baso # (Auto) 0.1 (0.0-0.1) 10^3/u L Nucleated RBC % (a uto) 0 % Nucleated RBCs # 0.0 /100WBC Specimen Type Sample Site ABG pH (7.35-7.45) ABG pCO2 (35-45) mmHg ABG pO2 (80.0-100.0) mmH g ABG HCO3 (22-26) mmol/L ABG O2 Saturation ABG Base Excess (-2.0-2.0) mmol/ L Juan Test A-a O2 Gradient (5-10) mmHg Hematocrit (37-47) % Hgb O2 Saturation (95-100) % Carboxyhemoglobin (0.4-20.1) %THgb Methemoglobin (0.4-1.5) % Total Hemoglobin (12-16) g/dL Ionized Calcium (1.1-1.4) mmol/L O2 Delivery Device Merchandise Examiner ID Sodium 137 (136-145) mmol/L Potassium 4.1 (3.5-5.1) mmol/L Chloride 104 (98-107) mmol/L Carbon Dioxide 24 (22-29) mmol/L Anion Gap 13.1 (5-19) BUN 30 H (6-20) mg/dL Creatinine 0.9 (0.5-0.9) mg/dL GFR Calculation 65.8 L (90-130) mL/min Glucose 132 H (65-115) mg/dL Calculated Osmolal ity 283 L (285-295) mOsm/k g Calcium 7.7 L (8.5-10.5) mg/dL Total Bilirubin 0.2 (0.15-1.2) mg/dL AST 12 (0-32) U/L ALT 18 (0-33) U/L Alkaline Phosphata se 102 (35-105) IU/L Troponin T Gen 5 n g/L 7 (0-10) ng/L Total Protein 5.7 L (6.6-8.7) g/dL Albumin 3.2 L (3.5-5.2) g/dL Globulin 2.5 (1.3-4.6) g/dL 02/06/20 Range/Units 17:56 WBC (4.0-10.0) 10^3/ uL RBC (4.1-5.3) 10^6/u L Hgb (11.5-15.3) g/dL Hct (37.0-47.0) % MCV (81-99) fL MCH (28.0-34.0) pg MCHC (30.0-36.0) g/dL RDW (12.1-15.1) % Plt Count (130-400) 10^3/c mm MPV (7.4-10.4) fL Neut % (Auto) % Lymph % (Auto) % [place] % (Auto) % Eos % (Auto) % Baso % (Auto) % Neut # (Auto) (1.8-7.7) 10^3/u L Lymph # (Auto) (0.8-4.8) 10^3/u L [place] # (Auto) (0.2-0.9) 10^3/u L Eos # (Auto) (0.0-0.8) 10^3/u L Baso # (Auto) (0.0-0.1) 10^3/u L Nucleated RBC % (a uto) % Nucleated RBCs # /100WBC Specimen Type Arterial Sample Site Radial, right ABG pH 7.45 (7.35-7.45) ABG pCO2 38.9 (35-45) mmHg ABG pO2 82.1 (80.0-100.0) mmH g ABG HCO3 26.7 H (22-26) mmol/L ABG O2 Saturation 95.3 ABG Base Excess 2.5 H (-2.0-2.0) mmol/ L Juan Test Pos A-a O2 Gradient 2.4 L (5-10) mmHg Hematocrit 36.9 L (37-47) % Hgb O2 Saturation 83.0 L (95-100) % Carboxyhemoglobin 12.0 (0.4-20.1) %THgb Methemoglobin 0.9 (0.4-1.5) % Total Hemoglobin 12.0 (12-16) g/dL Ionized Calcium 1.1 (1.1-1.4) mmol/L O2 Delivery Device Room air Merchandise Examiner ID Jlg Sodium 139.0 (136-145) mmol/L Potassium 4.0 (3.5-5.1) mmol/L Chloride (98-107) mmol/L Carbon Dioxide (22-29) mmol/L Anion Gap (5-19) BUN (6-20) mg/dL Creatinine (0.5-0.9) mg/dL GFR Calculation (90-130) mL/min Glucose 108.0 (65-115) mg/dL Calculated Osmolal ity (285-295) mOsm/k g Calcium (8.5-10.5) mg/dL Total Bilirubin (0.15-1.2) mg/dL AST (0-32) U/L ALT (0-33) U/L Alkaline Phosphata se (35-105) IU/L Troponin T Gen 5 n g/L (0-10) ng/L Total Protein (6.6-8.7) g/dL Albumin (3.5-5.2) g/dL Globulin (1.3-4.6) g/dL Discharge Plan Discharge Patient Disposition: Home Clinical Impression: Pneumocystis jiroveci pneumonia Qualifiers: Laterality: bilateral Lung location: lower lobe of lung Qualified Code(s): B59 - Pneumocystosis Condition: Stable Prescriptions: New prednisone 10 mg tablets,dose pack See Rx Instructions .ROUTE .COMPLEX Qty: 21 RF: 0 No Action loratadine 10 mg tablet 10 mg PO DAILY Qty: 90 RF: 0 polyethylene glycol 3350 [Miralax] 17 gram/dose powder 17 gm PO DAILY PRN (Reason: constipation) RF: 0 ipratropium-albuterol 0.5 mg-3 mg(2.5 mg base)/3 mL solution for nebulization 3 ml INHALATION Q4H PRN (Reason: Shortness Of Breath) RF: 0 aspirin 81 mg tablet,delayed release (DR/EC) 81 mg PO DAILY RF: 0 lorazepam 0.5 mg tablet 0.5 mg PO DAILY PRN (Reason: Anxiety) 30 Days Qty: 30 RF: 0 venlafaxine 75 mg capsule,extended release 24hr 75 mg PO BID RF: 0 Ingrezza 80 mg capsule 80 mg PO DAILY 1 Days RF: 2 sucralfate [Carafate] 1 gram tablet 1 gm PO Q6H Qty: 45 RF: 0 Trelegy Ellipta 100-62.5-25 mcg blister with device 1 inh INHALATION DAILY RF: 0 hydroxyzine pamoate 100 mg Capsule 100 mg PO BEDTIME RF: 0 promethazine [Promethegan] 25 mg suppository 25 mg MO Q12H PRN (Reason: Nausea And Vomiting) RF: 0 trazodone 100 mg tablet 200 mg PO BEDTIME 30 Days RF: 3 pantoprazole [Protonix] 40 mg tablet,delayed release (DR/EC) 40 mg PO DAILY 1 Days RF: 5 lamotrigine 200 mg tablet 200 mg PO DAILY RF: 0 quetiapine [Seroquel] 300 mg tablet 300 mg PO BEDTIME RF: 0 hydroxyzine pamoate 50 mg capsule 50 mg PO TID PRN (Reason: Anxiety) RF: 0 atovaquone 750 mg/5 mL suspension 750 mg PO BID 21 Days Qty: 210 RF: 0 Discharge Orders: Discharge Order (Routine); Ordered 02/06/20 Ordered By: Ann Morgan Referrals: Dara Tavera FNP [Primary Care Provider] - 1-3 days Arina Bray MD [Physician] - (Follow-up with Dr. Bray as scheduled.) Discharge Diet: Advance as tolerated Discharge Activity: Increase activity as tolerated Patient Instructions: Chronic Obstructive Pulmonary Disease (ED) Activity Restrictions/Additional Instructions: Please return to the ER immediately for any of the signs or symptoms listed on your discharge instruction sheets, worsening/changing of your symptoms, you are not getting better as quickly as expected, or for ANY other cause or concerns. Sign Out Sign Out Data: Patient Sign Out occurred on 02/06/20 at 16:59. Patient's care was discussed, and care was transferred from to Ann Morgan. Coding Level of Care Code ED Memory Care Director for Chg Fwd Exam Comprehensive Documented by User: Ann Morgan 02/06/20 18:42 HPI - Chest Pain General: Chief Complaint: Chest Pain Stated Complaint: SOB/ CP Time Seen by Provider: 02/06/20 15:58 PFSH ED PFSH: Medical History (Updated 02/06/20 @ 18:27 by Ann Morgan) Bladder stone Borderline personality disorder Chronic anxiety Chronic back pain greater than 3 months duration Chronic cystitis with hematuria COPD (chronic obstructive pulmonary disease) Foreign body in bladder GERD without esophagitis Neurogenic bladder Nicotine dependence, cigarettes, with other nicotine-induced disorders Quit in 2019 Oxygen dependent Schizoaffective disorder, bipolar type Urgency incontinence Surgical History H/O: hysterectomy History of appendectomy History of breast biopsy History of ureter stent Hx of cholecystectomy S/P bronchoscopy with biopsy Family History Other Asthma Cancer Diabetes Heart disease Social History Smoking and tobacco status: former smoker Quit status (tobacco): has quit using tobacco Year quit tobacco: 2019 - 1PPD x 25 Years Alcohol intake: never Lives independently: Yes Household members: spouse Marital status: Number of children: 3 Current occupational status: disabled History of recent travel: No Current gender identity: Female Course Vital Signs: Vital signs: Vital Signs Temperature 98.3 F 02/06/20 16:07 Pulse Rate 96 02/06/20 17:09 Respiratory Rate 16 02/06/20 17:06 Blood Pressure 125/66 02/06/20 16:07 Pulse Oximetry 97 02/06/20 17:06 MDM - Chest Pain MDM Narrative: Medical decision making narrative: Patient was seen and evaluated by me and I assumed care at the end of Edgar Guerin APN shift. On my exam the patient has mild wheezing. She has no complaints of pain. Her oxygen level is 95% or greater on room air oxygen. I discussed the case with Dr. Gagnon and I have reviewed her discharge note, please see that note as the patient is already had extensive cardiopulmonary work-up. She states the patient if wheezing can go back on steroids prior to being seen by Dr. Bray. The patient is agreeable to do this. Her chest x-ray appears better than baseline. There is no sign of cardiac type pain. Patient is complaining of primarily of shortness of breath and has been exposed to smoke again in her home. I will place her on the steroids and she agrees to follow-up with Dr. Bray. Further care will be dictated at that time. Lab Data: Labs: Lab Results 02/06/20 02/06/20 02/06/20 Range/Units 16:38 16:38 16:38 WBC 22.4 H (4.0-10.0) 10^3/ uL RBC 4.17 (4.1-5.3) 10^6/u L Hgb 11.8 (11.5-15.3) g/dL Hct 36.9 L (37.0-47.0) % MCV 88.5 (81-99) fL MCH 28.3 (28.0-34.0) pg MCHC 32.0 (30.0-36.0) g/dL RDW 15.8 H (12.1-15.1) % Plt Count 222 (130-400) 10^3/c mm MPV 9.9 (7.4-10.4) fL Neut % (Auto) 80.5 % Lymph % (Auto) 10.0 % [place] % (Auto) 5.8 % Eos % (Auto) 1.8 % Baso % (Auto) 0.4 % Neut # (Auto) 18.03 H (1.8-7.7) 10^3/u L Lymph # (Auto) 2.2 (0.8-4.8) 10^3/u L [place] # (Auto) 1.3 H (0.2-0.9) 10^3/u L Eos # (Auto) 0.4 (0.0-0.8) 10^3/u L Baso # (Auto) 0.1 (0.0-0.1) 10^3/u L Nucleated RBC % (a uto) 0 % Nucleated RBCs # 0.0 /100WBC Specimen Type Sample Site ABG pH (7.35-7.45) ABG pCO2 (35-45) mmHg ABG pO2 (80.0-100.0) mmH g ABG HCO3 (22-26) mmol/L ABG O2 Saturation ABG Base Excess (-2.0-2.0) mmol/ L Juan Test A-a O2 Gradient (5-10) mmHg Hematocrit (37-47) % Hgb O2 Saturation (95-100) % Carboxyhemoglobin (0.4-20.1) %THgb Methemoglobin (0.4-1.5) % Total Hemoglobin (12-16) g/dL Ionized Calcium (1.1-1.4) mmol/L O2 Delivery Device Merchandise Examiner ID Sodium 137 (136-145) mmol/L Potassium 4.1 (3.5-5.1) mmol/L Chloride 104 (98-107) mmol/L Carbon Dioxide 24 (22-29) mmol/L Anion Gap 13.1 (5-19) BUN 30 H (6-20) mg/dL Creatinine 0.9 (0.5-0.9) mg/dL GFR Calculation 65.8 L (90-130) mL/min Glucose 132 H (65-115) mg/dL Calculated Osmolal ity 283 L (285-295) mOsm/k g Calcium 7.7 L (8.5-10.5) mg/dL Total Bilirubin 0.2 (0.15-1.2) mg/dL AST 12 (0-32) U/L ALT 18 (0-33) U/L Alkaline Phosphata se 102 (35-105) IU/L Troponin T Gen 5 n g/L 7 (0-10) ng/L Total Protein 5.7 L (6.6-8.7) g/dL Albumin 3.2 L (3.5-5.2) g/dL Globulin 2.5 (1.3-4.6) g/dL 08/20/20 Range/Units 17:56 WBC (4.0-10.0) 10^3/ uL RBC (4.1-5.3) 10^6/u L Hgb (11.5-15.3) g/dL Hct (37.0-47.0) % MCV (81-99) fL MCH (28.0-34.0) pg MCHC (30.0-36.0) g/dL RDW (12.1-15.1) % Plt Count (130-400) 10^3/c mm MPV (7.4-10.4) fL Neut % (Auto) % Lymph % (Auto) % [place] % (Auto) % Eos % (Auto) % Baso % (Auto) % Neut # (Auto) (1.8-7.7) 10^3/u L Lymph # (Auto) (0.8-4.8) 10^3/u L [place] # (Auto) (0.2-0.9) 10^3/u L Eos # (Auto) (0.0-0.8) 10^3/u L Baso # (Auto) (0.0-0.1) 10^3/u L Nucleated RBC % (a uto) % Nucleated RBCs # /100WBC Specimen Type Arterial Sample Site Radial, right ABG pH 7.45 (7.35-7.45) ABG pCO2 38.9 (35-45) mmHg ABG pO2 82.1 (80.0-100.0) mmH g ABG HCO3 26.7 H (22-26) mmol/L ABG O2 Saturation 95.3 ABG Base Excess 2.5 H (-2.0-2.0) mmol/ L Juan Test Pos A-a O2 Gradient 2.4 L (5-10) mmHg Hematocrit 36.9 L (37-47) % Hgb O2 Saturation 83.0 L (95-100) % Carboxyhemoglobin 12.0 (0.4-20.1) %THgb Methemoglobin 0.9 (0.4-1.5) % Total Hemoglobin 12.0 (12-16) g/dL Ionized Calcium 1.1 (1.1-1.4) mmol/L O2 Delivery Device Room air Merchandise Examiner ID Jlg Sodium 139.0 (136-145) mmol/L Potassium 4.0 (3.5-5.1) mmol/L Chloride (98-107) mmol/L Carbon Dioxide (22-29) mmol/L Anion Gap (5-19) BUN (6-20) mg/dL Creatinine (0.5-0.9) mg/dL GFR Calculation (90-130) mL/min Glucose 108.0 (65-115) mg/dL Calculated Osmolal ity (285-295) mOsm/k g Calcium (8.5-10.5) mg/dL Total Bilirubin (0.15-1.2) mg/dL AST (0-32) U/L ALT (0-33) U/L Alkaline Phosphata se (35-105) IU/L Troponin T Gen 5 n g/L (0-10) ng/L Total Protein (6.6-8.7) g/dL Albumin (3.5-5.2) g/dL Globulin (1.3-4.6) g/dL EKG Data^: EKG 2: Attestation: I personally reviewed and interpreted this EKG as follows: EKG interpretation date: 02/06/20 EKG interpretation time: 18:32 Interpretation: Normal sinus rhythm at 95 beats a minute, normal axis, no blocks, normal intervals. No acute ST or T wave changes. Discharge Plan Discharge Patient Disposition: Home Clinical Impression: Pneumocystis jiroveci pneumonia Qualifiers: Laterality: bilateral Lung location: lower lobe of lung Qualified Code(s): B59 - Pneumocystosis Condition: Stable Prescriptions: New prednisone 10 mg tablets,dose pack See Rx Instructions .ROUTE .COMPLEX Qty: 21 RF: 0 No Action loratadine 10 mg tablet 10 mg PO DAILY Qty: 90 RF: 0 polyethylene glycol 3350 [Miralax] 17 gram/dose powder 17 gm PO DAILY PRN (Reason: constipation) RF: 0 ipratropium-albuterol 0.5 mg-3 mg(2.5 mg base)/3 mL solution for nebulization 3 ml INHALATION Q4H PRN (Reason: Shortness Of Breath) RF: 0 aspirin 81 mg tablet,delayed release (DR/EC) 81 mg PO DAILY RF: 0 lorazepam 0.5 mg tablet 0.5 mg PO DAILY PRN (Reason: Anxiety) 30 Days Qty: 30 RF: 0 venlafaxine 75 mg capsule,extended release 24hr 75 mg PO BID RF: 0 Ingrezza 80 mg capsule 80 mg PO DAILY 1 Days RF: 2 sucralfate [Carafate] 1 gram tablet 1 gm PO Q6H Qty: 45 RF: 0 Trelegy Ellipta 100-62.5-25 mcg blister with device 1 inh INHALATION DAILY RF: 0 hydroxyzine pamoate 100 mg Capsule 100 mg PO BEDTIME RF: 0 promethazine [Promethegan] 25 mg suppository 25 mg MO Q12H PRN (Reason: Nausea And Vomiting) RF: 0 trazodone 100 mg tablet 200 mg PO BEDTIME 30 Days RF: 3 pantoprazole [Protonix] 40 mg tablet,delayed release (DR/EC) 40 mg PO DAILY 1 Days RF: 5 lamotrigine 200 mg tablet 200 mg PO DAILY RF: 0 quetiapine [Seroquel] 300 mg tablet 300 mg PO BEDTIME RF: 0 hydroxyzine pamoate 50 mg capsule 50 mg PO TID PRN (Reason: Anxiety) RF: 0 atovaquone 750 mg/5 mL suspension 750 mg PO BID 21 Days Qty: 210 RF: 0 Discharge Orders: Discharge Order (Routine); Ordered 02/06/20 Ordered By: Ann Morgan Referrals: Dara Tavera FNP [Primary Care Provider] - 1-3 days Arina Bray MD [Physician] - (Follow-up with Dr. Bray as scheduled.) Discharge Diet: Advance as tolerated Discharge Activity: Increase activity as tolerated Patient Instructions: Chronic Obstructive Pulmonary Disease (ED) Activity Restrictions/Additional Instructions: Please return to the ER immediately for any of the signs or symptoms listed on your discharge instruction sheets, worsening/changing of your symptoms, you are not getting better as quickly as expected, or for ANY other cause or concerns. Sign Out Sign Out Data: Patient Sign Out occurred on 02/06/20 at 16:59. Patient's care was discussed, and care was transferred from to Ann Morgan. Coding Level of Care Code ED Memory Care Director for Shellie Fwd Exam Comprehensive
[2020-02-06 16:55] LABS: Basophils # 0.1 10^3/uL (0.0-0.1); Basophils % 0.4 %; Eosinophils # 0.4 10^3/uL (0.0-0.8); Eosinophils % 1.8 %; Hematocrit 36.9 % (37.0-47.0); Hemoglobin 11.8 g/dL (11.5-15.3); Lymphocytes # 2.2 10^3/uL (0.8-4.8); Mean Corpuscular Hemoglobin 28.3 pg (28.0-34.0); Mean Corpuscular Volume 88.5 fL (81-99); Mean Platelet Volume 9.9 fL (7.4-10.4); Monocytes # 1.3 10^3/uL (0.2-0.9); Monocytes % 5.8 %; Neutrophils # 18.03 10^3/uL (1.8-7.7); Neutrophils % 80.5 %; Nucleated Red Blood Cells % 0 %; Platelet Count 222 10^3/cmm (130-400); Red Blood Count 4.17 10^6/uL (4.1-5.3); Red Cell Distribution Width 15.8 % (12.1-15.1); White Blood Count 22.4 10^3/uL (4.0-10.0)
[2020-02-06] MEDS: ipratropium-albuterol 3 mL Neb INHALATION (17:05)
[2020-02-06 17:06] VITALS: PULSE 96; RESP 16; O2SAT 97
[2020-02-06 17:09] VITALS: PULSE 96
[2020-02-06 17:13] LABS: Alanine Aminotransferase 18 U/L (0-33); Albumin Level 3.2 g/dL (3.5-5.2); Alkaline Phosphatase 102 IU/L (35-105); Anion Gap 13.1 (5-19); Aspartate Amino Transferase 12 U/L (0-32); Blood Urea Nitrogen 30 mg/dL (6-20); Calcium 7.7 mg/dL (8.5-10.5); Carbon Dioxide 24 mmol/L (22-29); Chloride 104 mmol/L (98-107); Globulin 2.5 g/dL (1.3-4.6); Glomerular Filtration Rate 65.8 mL/min (90-130); Glucose 132 mg/dL (65-115); Osmolality Calculated 283 mOsm/kg (285-295); Potassium 4.1 mmol/L (3.5-5.1); Sodium 137 mmol/L (136-145); Total Bilirubin 0.2 mg/dL (0.15-1.2); Total Protein 5.7 g/dL (6.6-8.7)
[2020-02-06 17:18] LABS: Troponin T (5th) Once 7 ng/L (0-10)
[2020-02-06] MEDS: calcium gluconate 0.1 gm/mL 10% SDV 10mL 1 GM IVP (18:00)
[2020-02-06 18:08] LABS: ABG PCO2 38.9 mmHg (35-45); ABG PH Result 7.45 (7.35-7.45); Alveolar-Arterial Oxygen Gradi 2.4 mmHg (5-10); Arterial Blood Gas Hematocrit 36.9 % (37-47); Base Excess ABG 2.5 mmol/L (-2.0-2.0); Blood Gas Allen Test Pos; Blood Gas Sample Site Radial, right; Blood Gas Sample Type Arterial; HCO3 ABG 26.7 mmol/L (22-26); Ionized Calcium Level - ABG 1.1 mmol/L (1.1-1.4); Methemoglobin 0.9 % (0.4-1.5); Oxygen Device ROOM AIR; Oxygen Saturation ABG 95.3; PO2 ABG 82.1 mmHg (80.0-100.0)
--- NOTE | 2020-02-06 18:14 | ECG_ITS ---
[facility] Test Date: 2020-02-06 Pat Name: Latesha Wilhelm Department: Room: Gender: Female Unarmed Security Guard: : 1965 Requested By: Ann Meyers Order Number: [id number] Jenkins MD: Kenan Sidhu M.D. Measurements Intervals [place] Rate: 111 P: 55 [place]: 133 QRS: 38 QRSD: 102 T: 58 QT: 338 QTc: 459 Interpretive Statements SINUS TACHYCARDIA INDETERMINATE AXIS ABNORMAL RHYTHM ECG Compared to ECG 02/01/2020 09:55:03 Indeterminate axis now present Sinus rhythm no longer present Electronically Signed On 02-06-2020 23:04:20 CDT by Kenan Sidhu M.D. [id number] f
[2020-02-06] MEDS: sodium chloride 0.9% 1,000 ML 999 ML IV (19:16)
[2020-02-06] MEDS: predniSONE 20 mg Tablet 60 MG PO (19:18)
[2020-02-06 19:20] VITALS: BP 158/74; PULSE 72; RESP 18; O2SAT 98
== END 2020-02-06 19:22 | disposition home or self-care (01) ==
PROVIDERS: Nurse Practitioner Family; Emergency Provider Emergency Medicine; PCP Registered Nurse
DX: B59 Pneumocystosis (principal); Z79.82 Long term (current) use of aspirin; Z87.891 Personal history of nicotine dependence; J44.9 Chronic obstructive pulmonary disease, unspecified
CPT/HCPCS: 12345; 36415; 36600; 71045; 80051; 80053; 82810; 83986; 84484; 85025; 93005; 94640; 96361; 96374; 96375; 99282; 99284; J0610; J7030; J7512

== ENCOUNTER 2020-02-13 17:06 | Emergency (ER) | payer MEDICARE, MEDICAID, SELFPAY ==
[2020-02-13 17:07] VITALS: PULSE 103; RESP 20; TEMP 36.8; O2SAT 97; BMI 33.3
--- NOTE | 2020-02-13 17:07 | XR_ITS ---
WS: [id number] Portable AP upright chest, 02/13/2020 Clinical Data: DYSPNEA Comparison: Portable chest, 02/06/2020. Findings: No nodules, masses or effusions are seen. The heart is enlarged. The pulmonary vascularity is not increased. No pneumonia or pneumothorax is seen. Monitor leads are on the chest wall. XR/XR chest 1V portable [id number] Impression: Cardiomegaly.
--- NOTE | 2020-02-13 17:08 | ECG_ITS ---
[facility] Test Date: 2020-02-13 Pat Name: Latesha Wilhelm Department: Room: Gender: Female Caustic Operator: : 1965 Requested By: Ann Meyers Order Number: [id number] Alice MD: Freida Sampson M.D. Measurements Intervals [place] Rate: 85 P: 53 [place]: 143 QRS: 43 QRSD: 104 T: 60 QT: 378 QTc: 451 Interpretive Statements SINUS RHYTHM Compared to ECG 02/06/2020 16:02:52 Sinus tachycardia no longer present Indeterminate axis no longer present Electronically Signed On 02-14-2020 11:33:42 CDT by Freida Sampson M.D. [id number]
[2020-02-13 17:23] VITALS: BP 113/67; PULSE 99; RESP 19; O2SAT 96
--- NOTE | 2020-02-13 17:29 | ED_ITS ---
HPI - SOB/Dyspnea General: Chief Complaint: Shortness of Breath/Dyspnea Stated Complaint: PNEUMONIA/ SOB Time Seen by Provider: 02/13/20 17:07 Source: patient and EMS Mode of arrival: EMS Limitations: no limitations History of Present Illness: HPI Narrative: Latesha is a nice 54-year-old female comes in complaining of cough and shortness of breath. She denies any fever. For some time now she has been battling pneumonia and is continuing to get better but she states today she got worse. She is scheduled to have a bronchoscopy by Dr. Bray. Patient is heard audibly wheezing and admits to continuing to smoke. She states she is not on any antibiotics at this time. Her cough is nonproductive. She denies any fever. Patient denies any chest pain. She states nothing is changed from her baseline other than she has slightly more difficulty with her breathing and nonproductive cough. Her symptoms started today. Associated symptoms: Deny abdominal pain, chest congestion, chest pain, diaphoresis, dizziness, extremity pain, fever(s), hemoptysis, lightheadedness, nausea, orthopnea, palpitations, syncope or vomiting Review of Systems Const: Denies: fever(s), chills, body aches, fatigue, malaise or diaphoresis Eyes: Denies: change in vision, blurry vision, photophobia, eye discomfort, eye discharge or eye redness ENMT: Denies: throat pain, odynophagia, hoarseness, swelling of lips/tongue, ear or mastoid pain, ear discharge, change in hearing or nasal discharge Card: Denies: chest pain, palpitations, irregular heart rhythm, edema, lightheadedness, syncope, pre-syncope, dyspnea on exertion or orthopnea Resp: Reports: dyspnea, non-productive cough and wheezing; Denies: productive cough, hemoptysis or chest congestion GI: Denies: abdominal pain, nausea, vomiting, hematemesis, coffee ground emesis, heartburn, diarrhea, constipation, GI cramping, hematochezia or melena : Denies: flank pain, dysuria, urinary frequency, urinary urgency or hematuria Musc: Denies: neck pain, back pain, extremity pain, extremity swelling, joint pain, joint swelling, joint redness, joint warmth or joint stiffness Skin/Breast: Denies: rash, pruritus, erythema or skin tenderness Neuro: Denies: headache(s), numbness in extremities, weakness in extremities, sensory changes, lack of coordination, difficulty walking, dizziness, vertigo, confusion, Slurred speech present or seizure-like activity Wilbur/Lymph: Denies: easy bruising, easy bleeding, petechiae, purpura or enlarged lymph nodes All/Imm: Denies: urticaria, throat swelling, tongue swelling, facial swelling or acute wheezing PFSH ED PFSH: Medical History Bladder stone Borderline personality disorder Chronic anxiety Chronic back pain greater than 3 months duration Chronic cystitis with hematuria COPD (chronic obstructive pulmonary disease) Foreign body in bladder GERD without esophagitis Neurogenic bladder Nicotine dependence, cigarettes, with other nicotine-induced disorders Quit in 2019 Oxygen dependent Schizoaffective disorder, bipolar type Urgency incontinence Surgical History H/O: hysterectomy History of appendectomy History of breast biopsy History of ureter stent Hx of cholecystectomy S/P bronchoscopy with biopsy Family History Other Asthma Cancer Diabetes Heart disease Social History Smoking and tobacco status: former smoker Quit status (tobacco): has quit using tobacco Year quit tobacco: 2019 - 1PPD x 25 Years Alcohol intake: never Lives independently: Yes Household members: spouse Marital status: Number of children: 3 Current occupational status: disabled History of recent travel: No Current gender identity: Female Female Reproductive History: Date of last menstrual period: 06/19/95 Physical Exam Const: COMMON NORMALS: no acute distress, patient oriented x3, no limitations, healthy appearing and well nourished GENERAL APPEARANCE: cooperative, well kempt and well developed HENMT: COMMON NORMALS: normocephalic, atraumatic, external ears normal, EAC's normal and Normal external nose present HEAD & SCALP: normal to inspection, normocephalic and atraumatic FACE & SINUS: normal facial exam and face symmetric NOSE: Normal external nose present and Normal nares present EXTERNAL EAR: Yes external ears normal EXTERNAL AUDITORY CANAL: EAC's normal MOUTH: Normal oral and palatal mucosa present, lip normal and tongue normal Eye: COMMON NORMALS: Equal, round and reactive pupils present and conjunctivae normal GENERAL EYE: appearance normal, both eyes and all related structures ALIGNMENT: Yes alignment normal PERIORBITAL: periorbital findings normal EYELID: eyelids normal CONJUNCTIVA: Yes conjunctivae normal SCLERA: sclerae normal PUPIL: Yes Equal, round and reactive pupils present Neck/C-Spine: COMMON NORMALS: full ROM, no lymphadenopathy, supple, no meningeal signs and no JVD GENERAL: Yes normal visual inspection and Yes trachea midline Chest: COMMONS NORMALS: normal inspection of the chest and normal palpation of entire chest wall Resp: COMMON NORMALS: normal respiratory effort, No retractions, No use of accessory muscles and clear to auscultation bilaterally EFFORT & INSPECTION: Yes able to speak in complete sentences and Yes symmetric chest movement AUSCULTATION: clear to auscultation bilaterally, no crackles, no rales, no rhonchi and wheezes Cardio: COMMON NORMALS: no JVD, regular rate, regular rhythm, S1 normal heart sound present and S2 normal heart sound present RATE: regular rate RHYTHM: regular rhythm HEART SOUNDS: S1 normal heart sound present, S2 normal heart sound present, no click, no gallops, no murmurs, no rubs and abnormal split S2 GI: COMMON NORMALS: Soft to palpation and No hepatosplenomegaly present PALPATION: Yes Soft to palpation, No Tenderness to palpation present (GI), No Guarding due to palpation present (GI), No Rigid due to palpation, Yes No hepatosplenomegaly present, No Hernia present, No Palpable mass present and No Pulsatile mass present : COMMON NORMALS: Yes no CVA tenderness BLADDER/KIDNEY EXAM: Yes no CVA tenderness EXTERNAL FEMALE EXAM: No Hernia present Back/Pelvis: COMMON NORMALS: no CVA tenderness, thoracic and lumbar spine normal to inspection, no thoracic nor lumbar tenderness and thoraco-lumbar ROM normal Extremity: COMMON NORMALS: normal to inspection, full ROM, capillary refill normal, no joint enlargement, no clubbing, cyanosis or edema and no calf tenderness Neuro: COMMON NORMALS: patient oriented x3, CN's II-XII intact bilaterally, moves all extremities, no focal motor deficits and no sensory deficits noted MENINGEAL SIGNS: Yes no meningeal signs SPEECH: speech normal Psych: COMMON NORMALS: mental status grossly normal, Normal thought process present, cooperative, normal affect, speech normal and activity/motor behavior normal APPEARANCE: Yes well kempt SPEECH: Yes normal speech THOUGHT PROCESS: Normal thought process present Skin: COMMON NORMALS: no rashes or lesions noted, turgor normal, no jaundice, no petechiae and no mottling GENERAL SKIN EXAM: no rashes or lesions noted and turgor normal Course Vital Signs: Vital signs: Vital Signs Temperature 98.2 F 02/13/20 17:07 Pulse Rate 94 02/13/20 20:19 Respiratory Rate 20 H 02/13/20 20:19 Blood Pressure 126/72 02/13/20 20:19 Pulse Oximetry 97 02/13/20 20:19 MDM - SOB/Dyspnea MDM Narrative: Medical decision making narrative: The patient CTA is negative. There is no infiltrate seen. Patient is refusing a repeat troponin. She is never had any chest pain. Patient is happy to hear her pneumonia has cleared. She agrees to return should her symptoms change or worsen but at this time she is asking to be discharged. I reviewed the case in full with Dr. Bray and he is agreeable to have her follow-up in the clinic as an outpatient. Of note the patient's carboxyhemoglobin came down from 15 down to 10 and the patient is feeling okay at this time. Poison control does not believe any further testing would be necessary as a smokers can have a level up to 10 normally. Lab Data: Attestation: I reviewed the patient's lab results. Labs: Lab Results 02/13/20 02/13/20 02/13/20 Range/Units 15:50 15:50 15:50 WBC 13.5 H (4.0-10.0) 10^3/ uL RBC 4.37 (4.1-5.3) 10^6/u L Hgb 12.2 (11.5-15.3) g/dL Hct 38.2 (37.0-47.0) % MCV 87.4 (81-99) fL MCH 27.9 L (28.0-34.0) pg MCHC 31.9 (30.0-36.0) g/dL RDW 15.8 H (12.1-15.1) % Plt Count 248 (130-400) 10^3/c mm MPV 10.1 (7.4-10.4) fL Neut % (Auto) 70.2 % Lymph % (Auto) 16.8 % [place] % (Auto) 9.3 % Eos % (Auto) 2.7 % Baso % (Auto) 0.5 % Neut # (Auto) 9.45 H (1.8-7.7) 10^3/u L Lymph # (Auto) 2.3 (0.8-4.8) 10^3/u L [place] # (Auto) 1.3 H (0.2-0.9) 10^3/u L Eos # (Auto) 0.4 (0.0-0.8) 10^3/u L Baso # (Auto) 0.1 (0.0-0.1) 10^3/u L Nucleated RBC % (a uto) 0 % Nucleated RBCs # 0.0 /100WBC D-Dimer (0-0.59) ug/mIFE U Specimen Type Sample Site ABG pH (7.35-7.45) ABG pCO2 (35-45) mmHg ABG pO2 (80.0-100.0) mmH g ABG HCO3 (22-26) mmol/L ABG O2 Saturation ABG Base Excess (-2.0-2.0) mmol/ L Juan Test Hematocrit (37-47) % Hgb O2 Saturation (95-100) % Carboxyhemoglobin (0.4-20.1) %THgb Methemoglobin (0.4-1.5) % Total Hemoglobin (12-16) g/dL Ionized Calcium (1.1-1.4) mmol/L O2 Delivery Device O2 Liters/Min % FiO2 % Solo Truck Driver ID Sodium 141 (136-145) mmol/L Potassium 3.9 (3.5-5.1) mmol/L Chloride 108 H (98-107) mmol/L Carbon Dioxide 23 (22-29) mmol/L Anion Gap 13.9 (5-19) BUN 20 (6-20) mg/dL Creatinine 0.8 (0.5-0.9) mg/dL GFR Calculation 75.3 L (90-130) mL/min Glucose 122 H (65-115) mg/dL Calculated Osmolal ity 290 (285-295) mOsm/k g Lactic Acid 1.5 (0.5-2.2) mmol/L Calcium 8.7 (8.5-10.5) mg/dL Magnesium 2.1 (1.7-2.3) mg/dL Total Bilirubin 0.2 (0.15-1.2) mg/dL AST 10 (0-32) U/L ALT 13 (0-33) U/L Alkaline Phosphata se 121 H (35-105) IU/L Troponin T Gen 5 n g/L Troponin T Baselin e (0-10) ng/L Troponin T 120 Min [place] Troponin T NT-Pro-B Natriuret Pep 95 (0-125) pg/mL Total Protein 5.8 L (6.6-8.7) g/dL Albumin 3.7 (3.5-5.2) g/dL Globulin 2.1 (1.3-4.6) g/dL Urine Color (Yellow) Urine Appearance (CLEAR) Urine pH (5-7) Ur Specific Gravit y (1.005-1.030) Urine Protein (Negative) Urine Glucose (UA) (Normal) Urine Ketones (Negative) Urine Blood (Negative) Urine Nitrate (Negative) Urine Bilirubin (NEGATIVE) Urine Urobilinogen (Negative) mg/dL Ur Leukocyte Stephanie ase (Negative) Urine Opiates Scre en (Negative) ng/mL Ur Barbiturates Sc reen (Negative) ng/mL Ur Phencyclidine S crn (Negative) ng/mL Ur Amphetamines Sc reen (Negative) ng/mL U Benzodiazepines Scrn (Negative) ng/mL Urine Cocaine Scre en (Negative) ng/mL U Marijuana (THC) Screen (Negative) ng/mL SARS-CoV-2 Ag (Rap id) (Negative) 02/13/20 02/13/20 02/13/20 Range/Units 15:50 15:50 17:32 WBC (4.0-10.0) 10^3/ uL RBC (4.1-5.3) 10^6/u L Hgb (11.5-15.3) g/dL Hct (37.0-47.0) % MCV (81-99) fL MCH (28.0-34.0) pg MCHC (30.0-36.0) g/dL RDW (12.1-15.1) % Plt Count (130-400) 10^3/c mm MPV (7.4-10.4) fL Neut % (Auto) % Lymph % (Auto) % [place] % (Auto) % Eos % (Auto) % Baso % (Auto) % Neut # (Auto) (1.8-7.7) 10^3/u L Lymph # (Auto) (0.8-4.8) 10^3/u L [place] # (Auto) (0.2-0.9) 10^3/u L Eos # (Auto) (0.0-0.8) 10^3/u L Baso # (Auto) (0.0-0.1) 10^3/u L Nucleated RBC % (a uto) % Nucleated RBCs # /100WBC D-Dimer 0.66 H (0-0.59) ug/mIFE U Specimen Type Arterial Sample Site Radial, left ABG pH 7.40 (7.35-7.45) ABG pCO2 37.0 (35-45) mmHg ABG pO2 135.0 H (80.0-100.0) mmH g ABG HCO3 23.0 (22-26) mmol/L ABG O2 Saturation ABG Base Excess -1.4 (-2.0-2.0) mmol/ L Juan Test Pos Hematocrit 37.7 (37-47) % Hgb O2 Saturation (95-100) % Carboxyhemoglobin (0.4-20.1) %THgb Methemoglobin (0.4-1.5) % Total Hemoglobin (12-16) g/dL Ionized Calcium (1.1-1.4) mmol/L O2 Delivery Device Nc O2 Liters/Min 2.0 % FiO2 28.0 % Solo Truck Driver ID Ed Sodium (136-145) mmol/L Potassium (3.5-5.1) mmol/L Chloride (98-107) mmol/L Carbon Dioxide (22-29) mmol/L Anion Gap (5-19) BUN (6-20) mg/dL Creatinine (0.5-0.9) mg/dL GFR Calculation (90-130) mL/min Glucose (65-115) mg/dL Calculated Osmolal ity (285-295) mOsm/k g Lactic Acid (0.5-2.2) mmol/L Calcium (8.5-10.5) mg/dL Magnesium (1.7-2.3) mg/dL Total Bilirubin (0.15-1.2) mg/dL AST (0-32) U/L ALT (0-33) U/L Alkaline Phosphata se (35-105) IU/L Troponin T Gen 5 n g/L Cancelled Troponin T Baselin e (0-10) ng/L Troponin T 120 Min [place] Troponin T NT-Pro-B Natriuret Pep (0-125) pg/mL Total Protein (6.6-8.7) g/dL Albumin (3.5-5.2) g/dL Globulin (1.3-4.6) g/dL Urine Color (Yellow) Urine Appearance (CLEAR) Urine pH (5-7) Ur Specific Gravit y (1.005-1.030) Urine Protein (Negative) Urine Glucose (UA) (Normal) Urine Ketones (Negative) Urine Blood (Negative) Urine Nitrate (Negative) Urine Bilirubin (NEGATIVE) Urine Urobilinogen (Negative) mg/dL Ur Leukocyte Stephanie ase (Negative) Urine Opiates Scre en (Negative) ng/mL Ur Barbiturates Sc reen (Negative) ng/mL Ur Phencyclidine S crn (Negative) ng/mL Ur Amphetamines Sc reen (Negative) ng/mL U Benzodiazepines Scrn (Negative) ng/mL Urine Cocaine Scre en (Negative) ng/mL U Marijuana (THC) Screen (Negative) ng/mL SARS-CoV-2 Ag (Rap id) (Negative) 02/13/20 02/13/20 02/13/20 Range/Units 19:00 19:10 19:26 WBC (4.0-10.0) 10^3/ uL RBC (4.1-5.3) 10^6/u L Hgb (11.5-15.3) g/dL Hct (37.0-47.0) % MCV (81-99) fL MCH (28.0-34.0) pg MCHC (30.0-36.0) g/dL RDW (12.1-15.1) % Plt Count (130-400) 10^3/c mm MPV (7.4-10.4) fL Neut % (Auto) % Lymph % (Auto) % [place] % (Auto) % Eos % (Auto) % Baso % (Auto) % Neut # (Auto) (1.8-7.7) 10^3/u L Lymph # (Auto) (0.8-4.8) 10^3/u L [place] # (Auto) (0.2-0.9) 10^3/u L Eos # (Auto) (0.0-0.8) 10^3/u L Baso # (Auto) (0.0-0.1) 10^3/u L Nucleated RBC % (a uto) % Nucleated RBCs # /100WBC D-Dimer (0-0.59) ug/mIFE U Specimen Type Arterial Sample Site Radial, left ABG pH 7.40 (7.35-7.45) ABG pCO2 37.1 (35-45) mmHg ABG pO2 113.0 H (80.0-100.0) mmH g ABG HCO3 23.0 (22-26) mmol/L ABG O2 Saturation 96.4 ABG Base Excess -1.5 (-2.0-2.0) mmol/ L Juan Test Pos Hematocrit 38.6 (37-47) % Hgb O2 Saturation 84.9 L (95-100) % Carboxyhemoglobin 10.9 (0.4-20.1) %THgb Methemoglobin 1.0 (0.4-1.5) % Total Hemoglobin 12.6 (12-16) g/dL Ionized Calcium 1.2 (1.1-1.4) mmol/L O2 Delivery Device Nc O2 Liters/Min 2.0 % FiO2 % [employer] Driver ID Hinja Sodium 142.0 (136-145) mmol/L Potassium 3.9 (3.5-5.1) mmol/L Chloride (98-107) mmol/L Carbon Dioxide (22-29) mmol/L Anion Gap (5-19) BUN (6-20) mg/dL Creatinine (0.5-0.9) mg/dL GFR Calculation (90-130) mL/min Glucose 145.0 H (65-115) mg/dL Calculated Osmolal ity (285-295) mOsm/k g Lactic Acid (0.5-2.2) mmol/L Calcium (8.5-10.5) mg/dL Magnesium (1.7-2.3) mg/dL Total Bilirubin (0.15-1.2) mg/dL AST (0-32) U/L ALT (0-33) U/L Alkaline Phosphata se (35-105) IU/L Troponin T Gen 5 n g/L Troponin T Baselin e 6 (0-10) ng/L Troponin T 120 Min [place] Troponin T NT-Pro-B Natriuret Pep (0-125) pg/mL Total Protein (6.6-8.7) g/dL Albumin (3.5-5.2) g/dL Globulin (1.3-4.6) g/dL Urine Color (Yellow) Urine Appearance (CLEAR) Urine pH (5-7) Ur Specific Gravit y (1.005-1.030) Urine Protein (Negative) Urine Glucose (UA) (Normal) Urine Ketones (Negative) Urine Blood (Negative) Urine Nitrate (Negative) Urine Bilirubin (NEGATIVE) Urine Urobilinogen (Negative) mg/dL Ur Leukocyte Stephanie ase (Negative) Urine Opiates Scre en (Negative) ng/mL Ur Barbiturates Sc reen (Negative) ng/mL Ur Phencyclidine S crn (Negative) ng/mL Ur Amphetamines Sc reen (Negative) ng/mL U Benzodiazepines Scrn (Negative) ng/mL Urine Cocaine Scre en (Negative) ng/mL U Marijuana (THC) Screen (Negative) ng/mL SARS-CoV-2 Ag (Rap id) Negative (Negative) 02/13/20 02/13/20 02/13/20 Range/Units 20:29 20:29 Unknown WBC (4.0-10.0) 10^3/ uL RBC (4.1-5.3) 10^6/u L Hgb (11.5-15.3) g/dL Hct (37.0-47.0) % MCV (81-99) fL MCH (28.0-34.0) pg MCHC (30.0-36.0) g/dL RDW (12.1-15.1) % Plt Count (130-400) 10^3/c mm MPV (7.4-10.4) fL Neut % (Auto) % Lymph % (Auto) % [place] % (Auto) % Eos % (Auto) % Baso % (Auto) % Neut # (Auto) (1.8-7.7) 10^3/u L Lymph # (Auto) (0.8-4.8) 10^3/u L [place] # (Auto) (0.2-0.9) 10^3/u L Eos # (Auto) (0.0-0.8) 10^3/u L Baso # (Auto) (0.0-0.1) 10^3/u L Nucleated RBC % (a uto) % Nucleated RBCs # /100WBC D-Dimer (0-0.59) ug/mIFE U Specimen Type Sample Site ABG pH (7.35-7.45) ABG pCO2 (35-45) mmHg ABG pO2 (80.0-100.0) mmH g ABG HCO3 (22-26) mmol/L ABG O2 Saturation ABG Base Excess (-2.0-2.0) mmol/ L Juan Test Hematocrit (37-47) % Hgb O2 Saturation (95-100) % Carboxyhemoglobin (0.4-20.1) %THgb Methemoglobin (0.4-1.5) % Total Hemoglobin (12-16) g/dL Ionized Calcium (1.1-1.4) mmol/L O2 Delivery Device O2 Liters/Min % FiO2 % [employer] Driver ID Sodium (136-145) mmol/L Potassium (3.5-5.1) mmol/L Chloride (98-107) mmol/L Carbon Dioxide (22-29) mmol/L Anion Gap (5-19) BUN (6-20) mg/dL Creatinine (0.5-0.9) mg/dL GFR Calculation (90-130) mL/min Glucose (65-115) mg/dL Calculated Osmolal ity (285-295) mOsm/k g Lactic Acid (0.5-2.2) mmol/L Calcium (8.5-10.5) mg/dL Magnesium (1.7-2.3) mg/dL Total Bilirubin (0.15-1.2) mg/dL AST (0-32) U/L ALT (0-33) U/L Alkaline Phosphata se (35-105) IU/L Troponin T Gen 5 n g/L Troponin T Baselin e (0-10) ng/L Troponin T 120 Min [place] Cancelled Delta Troponin T Cancelled NT-Pro-B Natriuret Pep (0-125) pg/mL Total Protein (6.6-8.7) g/dL Albumin (3.5-5.2) g/dL Globulin (1.3-4.6) g/dL Urine Color Yellow (Yellow) Urine Appearance Clear (CLEAR) Urine pH 5 (5-7) Ur Specific Gravit y 1.020 (1.005-1.030) Urine Protein Neg (Negative) Urine Glucose (UA) Norm (Normal) Urine Ketones Negative (Negative) Urine Blood Neg (Negative) Urine Nitrate Negative (Negative) Urine Bilirubin Neg (NEGATIVE) Urine Urobilinogen Norm (Negative) mg/dL Ur Leukocyte Stephanie ase Negative (Negative) Urine Opiates Scre en Negative (Negative) ng/mL Ur Barbiturates Sc reen Negative (Negative) ng/mL Ur Phencyclidine S crn Positive H (Negative) ng/mL Ur Amphetamines Sc reen Negative (Negative) ng/mL U Benzodiazepines Scrn Positive H (Negative) ng/mL Urine Cocaine Scre en Negative (Negative) ng/mL U Marijuana (THC) Screen Negative (Negative) ng/mL SARS-CoV-2 Ag (Rap id) (Negative) Imaging Data^: CXR: Attestation: I personally reviewed and interpreted this imaging study as follows: My impression: No acute cardiopulmonary findings. CT Chest: Radiologist's impression: [place] [address] CT Scan Report Signed Patient: Latesha Wilhelm Unit #: [id number] : [id number] ct#:[id number] Age/Sex: 54 / F ADM Date: 02/13/20 Loc: ER Room/Bed: Attending Dr: Ordering Provider/Ordering MD: Ann Morgan DO Date of Service: 02/13/20 Procedure(s): CT angio chest PE protcl [id number] Accession Number(s): [id number] Report Number: [id number] PROCEDURE INFORMATION: Exam: CT Angiography Chest With Contrast Exam date and time: 02/13/2020 8:16 PM Age: 54 years old Clinical indication: Abnormal findings; Abnormal diagnostic tests; Elevated d-dimer; Angina; Additional info: Dyspnea/positive d-dimer TECHNIQUE: Imaging protocol: Computed tomographic angiography of the chest with intravenous contrast. 3D rendering (Not supervised by radiologist): MIP and/or 3D reconstructed images were created by the technologist. Radiation optimization: All CT scans at this facility use at least one of these dose optimization techniques: automated exposure control; mA and/or kV adjustment per patient size (includes targeted exams where dose is matched to clinical indication); or iterative reconstruction. Contrast material: OMNI 350; Contrast volume: 70 ml; Contrast route: INTRAVENOUS (IV); COMPARISON: CT angio chest PE protcl [id number] 01/31/2020 10:58 PM, CT chest 05/08/2017 RADIATION DOSE METRICS: Total DLP (mGy-cm): 627.17 FINDINGS: Pulmonary arteries: Normal. No pulmonary emboli. Aorta: Unremarkable. No aortic aneurysm. No aortic dissection. Thyroid: Stable peripherally calcified 1.1 cm nodule in the left thyroid lobe. No follow-up is recommended. Lungs: Stable 4 mm nodule in the right upper lobe, image 19. The lungs are otherwise clear. Pleural space: Unremarkable. No pneumothorax. No pleural effusion. Heart: Unremarkable. No cardiomegaly. No pericardial effusion. Lymph nodes: Calcified mediastinal and left hilar lymph nodes. Multiple prominent mediastinal lymph nodes measuring up to 1.9 cm are unchanged and most likely reactive. Bones/joints: Stable T7 vertebral body hemangioma. Mild thoracic scoliosis. No compression fracture. Soft tissues: Unremarkable. CT/CT angio chest PE protcl [id number] IMPRESSION: 1. No evidence for pulmonary embolus. 2. Chronically stable 4 mm right upper lobe nodule. This is considered benign and requires no follow-up. 3. Stable prominent mediastinal and hilar lymph nodes which are most likely inflammatory or reactive. COMMENTS: Consistent with the [employer]'s Incidental Findings Committee white paper (J Am Ayan Radiol 2015): In patients aged 35 years and older with an incidental thyroid nodule equal to or greater than 1.[address], MRI or extrathyroidal US, further evaluation with dedicated thyroid US is recommended for patients with normal life expectancy and without comorbidities. For smaller nodules without suspicious features, no further evaluation or follow up is recommended. Radiation Dose CTDIVOL = (mGy): DLP = 627.17 (mGy-cm) Dictated By: Lyndon Reyes Signed By: Lyndon Reyes Signed Date/Time: 02/13/202056 DD/ 54 EKG Data^: EKG 1: Attestation: I personally reviewed and interpreted this EKG as follows: EKG Interpretation Date: 02/13/20 EKG interpretation time: 17:16 Interpretation: Normal sinus rhythm at 102 beats a minute, nonspecific ST and T wave changes. EKG 2: Attestation: I personally reviewed and interpreted this EKG as follows: EKG Interpretation Date: 02/13/20 EKG interpretation time: 18:34 Interpretation: Normal sinus rhythm at 85 beats a minute, no acute ST or T wave changes. No blocks, normal intervals Discharge Plan Discharge Patient Disposition: Home Clinical Impression: Chronic dyspnea Condition: Stable Prescriptions: No Action loratadine 10 mg tablet 10 mg PO DAILY Qty: 90 RF: 0 polyethylene glycol 3350 [Miralax] 17 gram/dose powder 17 gm PO DAILY PRN (Reason: constipation) RF: 0 ipratropium-albuterol 0.5 mg-3 mg(2.5 mg base)/3 mL solution for nebulization 3 ml INHALATION Q4H PRN (Reason: Shortness Of Breath) RF: 0 aspirin 81 mg tablet,delayed release (DR/EC) 81 mg PO DAILY RF: 0 venlafaxine 75 mg capsule,extended release 24hr 75 mg PO BID RF: 0 Ingrezza 80 mg capsule 80 mg PO DAILY 1 Days RF: 2 pantoprazole 40 mg tablet,delayed release (DR/EC) See Rx Instructions .ROUTE .COMPLEX Qty: 180 RF: 3 lorazepam 0.5 mg tablet 0.5 mg PO DAILY PRN (Reason: Anxiety) 30 Days Qty: 30 RF: 0 buspirone 10 mg tablet 10 mg PO TID Qty: 90 RF: 0 Trelegy Ellipta 100-62.5-25 mcg blister with device 1 inh INHALATION DAILY RF: 0 Tylenol 325 mg Tablet 325 - 650 mg PO QID PRN (Reason: Pain) RF: 0 hydroxyzine pamoate 100 mg Capsule 100 mg PO BEDTIME RF: 0 promethazine [Promethegan] 25 mg suppository 25 mg NJ Q12H PRN (Reason: Nausea And Vomiting) RF: 0 trazodone 100 mg tablet 200 mg PO BEDTIME 30 Days RF: 3 lamotrigine 200 mg tablet 200 mg PO DAILY RF: 0 quetiapine [Seroquel] 300 mg tablet 300 mg PO BEDTIME RF: 0 hydroxyzine pamoate 50 mg capsule 50 mg PO TID PRN (Reason: Anxiety) RF: 0 Discharge Orders: Discharge Order (Routine); Ordered 02/13/20 Ordered By: Ann Morgan Referrals: Dara Tavera FNP [Primary Care Provider] - Arina Bray MD [Physician] - 4-7 days Discharge Diet: Advance as tolerated Discharge Activity: Increase activity as tolerated Patient Instructions: Chronic Obstructive Pulmonary Disease (ED) Activity Restrictions/Additional Instructions: Please return to the ER immediately for any of the signs or symptoms listed on your discharge instruction sheets, worsening/changing of your symptoms, you are not getting better as quickly as expected, or for ANY other cause or concerns. Avoid smoke in your home and do not smoke at any time. Have the fire department come out and check your house for carbon monoxide leak to be certain that this or not another source of carbon monoxide you are being exposed to. Coding Level of Care Code ED Business Project Manager for Chg Fwd Exam Comprehensive
[2020-02-13 17:47] LABS: Arterial Blood Gas Hematocrit 37.7 % (37-47); Base Excess ABG -1.4 mmol/L (-2.0-2.0); Blood Gas Allen Test Pos; Blood Gas Sample Type Arterial
[2020-02-13 17:48] LABS: Blood Gas Operator Identificat ED; Blood Gas Sample Site Radial, left; Oxygen Device NC
[2020-02-13 18:01] LABS: Basophils # 0.1 10^3/uL (0.0-0.1); Basophils % 0.5 %; Eosinophils # 0.4 10^3/uL (0.0-0.8); Eosinophils % 2.7 %; Hematocrit 38.2 % (37.0-47.0); Hemoglobin 12.2 g/dL (11.5-15.3); Lymphocytes # 2.3 10^3/uL (0.8-4.8); Lymphocytes % 16.8 %; Mean Corpuscular HGB Conc 31.9 g/dL (30.0-36.0); Mean Corpuscular Hemoglobin 27.9 pg (28.0-34.0); Mean Corpuscular Volume 87.4 fL (81-99); Mean Platelet Volume 10.1 fL (7.4-10.4); Monocytes # 1.3 10^3/uL (0.2-0.9); Monocytes % 9.3 %; Neutrophils # 9.45 10^3/uL (1.8-7.7); Neutrophils % 70.2 %; Nucleated Red Blood Cells % 0 %; Platelet Count 248 10^3/cmm (130-400); Red Blood Count 4.37 10^6/uL (4.1-5.3); Red Cell Distribution Width 15.8 % (12.1-15.1); White Blood Count 13.5 10^3/uL (4.0-10.0)
[2020-02-13 18:23] VITALS: BP 127/81; PULSE 90; RESP 22; O2SAT 96
--- NOTE | 2020-02-13 18:26 | ECG_ITS ---
"[facility] Test Date: 2020-02-13 Pat Name: Latesha Wilhelm Department: Room: Gender: Female Laboratory Courier: : 1965 Requested By: Ann Meyers Order Number: [id number] Alice MD: Freida Sampson M.D. Measurements Intervals Blunt Rate: 85 P: 53 CT: 143 QRS: 43 QRSD: 104 T: 60 QT: 378 QTc: 451 Interpretive Statements SINUS RHYTHM Compared to ECG 02/06/2020 16:02:52 Sinus tachycardia no longer present Indeterminate axis no longer present Electronically Signed On 02-14-2020 11:33:52 CDT by Freida Sampson M.D. [id number] f"
[2020-02-13 18:30] LABS: D Dimer 0.66 ug/mIFEU (0-0.59)
[2020-02-13 18:34] LABS: Lactic Sepsis W/Reflex 1.5 mmol/L (0.5-2.2)
[2020-02-13 18:43] LABS: Alanine Aminotransferase 13 U/L (0-33); Albumin Level 3.7 g/dL (3.5-5.2); Alkaline Phosphatase 121 IU/L (35-105); Aspartate Amino Transferase 10 U/L (0-32); Blood Urea Nitrogen 20 mg/dL (6-20); Calcium 8.7 mg/dL (8.5-10.5); Carbon Dioxide 23 mmol/L (22-29); Chloride 108 mmol/L (98-107); Globulin 2.1 g/dL (1.3-4.6); Glomerular Filtration Rate 75.3 mL/min (90-130); Glucose 122 mg/dL (65-115); Magnesium 2.1 mg/dL (1.7-2.3); NT Pro B Type Natriuretic Pept 95 pg/mL (0-125); Osmolality Calculated 290 mOsm/kg (285-295); Sodium 141 mmol/L (136-145); Total Bilirubin 0.2 mg/dL (0.15-1.2); Total Protein 5.8 g/dL (6.6-8.7)
[2020-02-13 18:45] LABS: Anion Gap 13.9 (5-19); Potassium 3.9 mmol/L (3.5-5.1)
[2020-02-13] MEDS: albuterol 8 gm MDI 6 PUFF INHALATION (19:04)
[2020-02-13 19:11] VITALS: PULSE 86; RESP 18; O2SAT 96
[2020-02-13 19:26] LABS: ABG PCO2 37.1 mmHg (35-45); Arterial Blood Gas Hematocrit 38.6 % (37-47); Base Excess ABG -1.5 mmol/L (-2.0-2.0); Blood Gas Allen Test Pos; Blood Gas Sample Site Radial, left; Blood Gas Sample Type Arterial; Carboxyhemoglobin 10.9 %THgb (0.4-20.1); HGB O2 Sat 84.9 % (95-100); Ionized Calcium Level - ABG 1.2 mmol/L (1.1-1.4); Oxygen Device NC; Oxygen Saturation ABG 96.4; Potassium Level - ABG 3.9 mmol/L (3.5-5.0); Total Hemoglobin 12.6 g/dL (12-16)
[2020-02-13 19:32] LABS: SARS Covid-2 Antigen Negative (Negative)
[2020-02-13 19:33] LABS: Troponin(5th) Baseline 6 ng/L (0-10)
--- NOTE | 2020-02-13 19:51 | USCV_ITS ---
aLtesha Wilhelm Age: 54 Gender: F : 1965 Exam Date: 02/13/2020 21:07 Ordering Phys: Ann Morgan DO Technologist: Lior Bowen Exam Location: [facility] – [place], [place] Indication: LEG SWELLING HISTORY: LEG PAIN PROCEDURES: The venous duplex Doppler examination of both lower extremities was performed in the standard fashion. The following venous structures were evaluated: common femoral vein, profunda vein, proximal portion of the greater saphenous vein, superficial femoral vein, and the popliteal vein. In addition, the posterior tibial and peroneal trunk were evaluated. Serial compression, augmentation maneuvers, and spectral Doppler flow evaluation were performed. FINDINGS: No DVT seen in any vessel examined CONCLUSIONS No evidence of right lower extremity DVT. No evidence of left lower extremity DVT. Cleveland Hollins MD (Electronically Signed) Final Date: 14 February 2020 14:35 S
--- NOTE | 2020-02-13 20:12 | CTR_ITS ---
PROCEDURE INFORMATION: Exam: CT Angiography Chest With Contrast Exam date and time: 02/13/2020 8:16 PM Age: 54 years old Clinical indication: Abnormal findings; Abnormal diagnostic tests; Elevated d-dimer; Angina; Additional info: Dyspnea/positive d-dimer TECHNIQUE: Imaging protocol: Computed tomographic angiography of the chest with intravenous contrast. 3D rendering (Not supervised by radiologist): MIP and/or 3D reconstructed images were created by the technologist. Radiation optimization: All CT scans at this facility use at least one of these dose optimization techniques: automated exposure control; mA and/or kV adjustment per patient size (includes targeted exams where dose is matched to clinical indication); or iterative reconstruction. Contrast material: OMNI 350; Contrast volume: 70 ml; Contrast route: INTRAVENOUS (IV); COMPARISON: CT angio chest PE protcl [id number] 01/31/2020 10:58 PM, CT chest 05/08/2017 RADIATION DOSE METRICS: Total DLP (mGy-cm): 627.17 FINDINGS: Pulmonary arteries: Normal. No pulmonary emboli. Aorta: Unremarkable. No aortic aneurysm. No aortic dissection. Thyroid: Stable peripherally calcified 1.1 cm nodule in the left thyroid lobe. No follow-up is recommended. Lungs: Stable 4 mm nodule in the right upper lobe, image 19. The lungs are otherwise clear. Pleural space: Unremarkable. No pneumothorax. No pleural effusion. Heart: Unremarkable. No cardiomegaly. No pericardial effusion. Lymph nodes: Calcified mediastinal and left hilar lymph nodes. Multiple prominent mediastinal lymph nodes measuring up to 1.9 cm are unchanged and most likely reactive. Bones/joints: Stable T7 vertebral body hemangioma. Mild thoracic scoliosis. No compression fracture. Soft tissues: Unremarkable. CT/CT angio chest PE protcl [id number] IMPRESSION: 1. No evidence for pulmonary embolus. 2. Chronically stable 4 mm right upper lobe nodule. This is considered benign and requires no follow-up. 3. Stable prominent mediastinal and hilar lymph nodes which are most likely inflammatory or reactive. COMMENTS: Consistent with the [employer] [place] [employer]'s Incidental Findings Committee white paper (J Am Ayan Radiol 2015): In patients aged 35 years and older with an incidental thyroid nodule equal to or greater than 1.[address], MRI or extrathyroidal US, further evaluation with dedicated thyroid US is recommended for patients with normal life expectancy and without comorbidities. For smaller nodules without suspicious features, no further evaluation or follow up is recommended. Radiation Dose CTDIVOL = (mGy): DLP = 627.17 (mGy-cm)
[2020-02-13 20:19] VITALS: BP 126/72; PULSE 94; RESP 20; O2SAT 97
[2020-02-13] MEDS: iohexol 350 mg/mL 100 mL Btl IV (20:37)
[2020-02-13 21:02] LABS: Add Urine Microscopic? NO
[2020-02-13 21:07] LABS: Urine Appearance Clear (CLEAR); Urine Color Yellow (Yellow); pH Urine 5 (5-7)
[2020-02-13 21:08] LABS: Bilirubin Urine Neg (NEGATIVE); Blood Urine Neg (Negative); Glucose Urine UA Norm (Normal); Ketones Urine Negative (Negative); Leukocyte Esterase Urine Negative (Negative); Nitrate Urine Negative (Negative); Protein Urine Neg (Negative); Urobilinogen Urine Norm (Negative)
[2020-02-13 21:12] LABS: Amphetamines Screen Urine Negative (Negative); Barbiturates Screen Urine Negative (Negative); Benzodiazepines Screen Urine Positive (Negative); Cocaine Screen Urine Negative (Negative); Opiate Screen Urine Negative (Negative); PCP Screen Urine Positive (Negative); THC Screen Urine Negative (Negative)
[2020-02-13 21:49] VITALS: BP 142/74; PULSE 92; RESP 20; O2SAT 2
== END 2020-02-13 21:59 | disposition home or self-care (01) ==
PROVIDERS: Emergency Provider Emergency Medicine; PCP Registered Nurse
DX: R06.09 Other forms of dyspnea (principal); Z79.82 Long term (current) use of aspirin; J44.9 Chronic obstructive pulmonary disease, unspecified; Z87.891 Personal history of nicotine dependence; Z79.899 Other long term (current) drug therapy; M79.89 Other specified soft tissue disorders
CPT/HCPCS: 12345; 36415; 36600; 71045; 71275; 80051; 80053; 80306; 81003; 82803; 82810; 83605; 83735; 83880; 83986; 84484; 85025; 85378; 87040; 87426; 93005; 93970; 94640; 96374; 96375; 99284; J2930; J3535; Q9967

== ENCOUNTER → 2020-02-17 08:04 | Outpatient (BNVA) | payer MEDICARE, MEDICAID, SELFPAY | PROVIDERS: PCP Registered Nurse; Visit Provider Nurse Practitioner | DX: F60.3 Borderline personality disorder (principal); F25.0 Schizoaffective disorder, bipolar type; F51.05 Insomnia due to other mental disorder | CPT/HCPCS: 99213 ==

== ENCOUNTER 2020-02-21 09:38 | Outpatient (CLI) | payer MEDICARE, MEDICAID, SELFPAY ==
--- NOTE | 2020-02-21 10:00 | FL_ITS ---
WS: [id number] Modified barium swallow, 02/21/2020 Clinical Data: Possible aspiration Comparison: None. Fluoroscopy time: 1.6 minutes. Findings: The patient did initiate swallowing. No aspiration or penetration could be seen. The propulsion of th e barium through the hypopharynx was normal. No fistulas, stricture, mass polyp or hypopharyngeal imp ingement could be seen. The patient did show tertiary contractions of the esophagus. FL/FL barium swallow modifd [id number] Impression: 1. Normal hypopharyngeal pharyngeal propulsion. 2. Tertiary contractions of the esophagus.
== END 2020-02-21 09:39 | disposition home or self-care (01) ==
LOC: RAD 09:41
PROVIDERS: PCP Registered Nurse; Visit Provider Internal Medicine Critical Care Medicine
DX: T17.800A Unspecified foreign body in other parts of respiratory tract causing asphyxiation, initial encounter (principal); X58.XXXA Exposure to other specified factors, initial encounter; B59 Pneumocystosis
CPT/HCPCS: 74230; 87635; 92611

== ENCOUNTER 2020-02-23 13:01 | Emergency (ER) | payer MEDICARE, MEDICAID, SELFPAY ==
[2020-02-23 13:02] VITALS: BP 119/77; PULSE 99; RESP 20; TEMP 37.4; O2SAT 94; BMI 32.9
--- NOTE | 2020-02-23 13:14 | W.ED.ABDPA2 ---
HPI - Abdominal Pain General: Chief Complaint: Abdominal Pain Stated Complaint: ABD PAIN Time Seen by Provider: 02/23/20 13:03 Source: patient and old records reviewed Mode of arrival: EMS Limitations: no limitations History of Present Illness: HPI narrative: Patient is a 54-year-old female with a frequent visitor to multiple emergency departments with several pain complaints. She presents today with epigastric pain that started yesterday. 2 days ago she had a barium swallow and it revealed that she had some esophageal stricture and she has been scheduled for evaluation by the surgeon in 3 days. She states that she has some nausea and vomiting as well as epigastric pain. No fever no urinary symptoms no other symptoms. MD elicited complaint: abdominal pain Pertinent past history: gastritis and kidney stones Onset (ago): day(s) (1) Pain Consistency: constant Location: Epigastric Severity: severe Quality: stabbing Radiation: none Migration to: no migration Exacerbating factors: eating Relieving factors: nothing Associated Symptoms: Reports dyspepsia; Denies anorexia, belching, bloating, change in bowel habits, change in stool character, chills, coffee ground emesis, constipation, diarrhea, dysuria, excessive flatus, fever(s), hematochezia, hematuria, hematemesis, fecal incontinence, loose stools, melena, nausea, poor appetite, syncope and vomiting Related Data: Date of Last Menstrual Period: 06/19/95 Review of Systems General: Reports: 10 or more systems reviewed and unremarkable except in HPI and below Const: Denies: fever(s) or chills Eyes: Denies: change in vision or blurry vision ENMT: Denies: throat pain, enlarged tonsils, odynophagia, hoarseness, mouth pain or swelling of lips/tongue Card: Denies: syncope Resp: Denies: dyspnea, productive cough or non-productive cough GI: Denies: nausea, vomiting, hematemesis, coffee ground emesis, diarrhea, constipation, bloating, belching, excessive flatus, fecal incontinence, change in bowel habits, change in stool character, hematochezia or melena : Denies: dysuria or hematuria Musc: Denies: neck pain, back pain or extremity swelling Skin/Breast: Denies: rash, pruritus or erythema Neuro: Denies: headache(s), numbness in extremities or weakness in extremities Endo: Denies: polyuria, polydipsia or tired all the time PFSH ED PFSH: Medical History (Reviewed 02/23/20 @ 13:21 by Elva Weston [place] [facility] [place] Bladder stone Borderline personality disorder Chronic anxiety Chronic back pain greater than 3 months duration Chronic cystitis with hematuria COPD (chronic obstructive pulmonary disease) Foreign body in bladder GERD without esophagitis Neurogenic bladder Nicotine dependence, cigarettes, with other nicotine-induced disorders Quit in 2019 Oxygen dependent Schizoaffective disorder, bipolar type Urgency incontinence Surgical History (Reviewed 02/23/20 @ 13:21 by Elva Weston [place] [facility] [place] H/O: hysterectomy History of appendectomy History of breast biopsy History of ureter stent Hx of cholecystectomy S/P bronchoscopy with biopsy Family History (Reviewed 02/23/20 @ 13:21 by Elva Weston MD, [facility] [place] Other Asthma Cancer Diabetes Heart disease Social History (Reviewed 02/23/20 @ 13:21 by Elva Weston MD, [facility] [place] Smoking and tobacco status: former smoker Quit status (tobacco): has quit using tobacco Year quit tobacco: 2019 1PPD x 25 Years Alcohol intake: never Lives independently: Yes Household members: spouse Marital status: Number of children: 3 Current occupational status: disabled History of recent travel: No Current gender identity: Female Female Reproductive History: Date of last menstrual period: 06/19/95 Physical Exam Const: COMMON NORMALS: no acute distress, average body habitus, patient oriented x3, no limitations, healthy appearing, alert and well nourished HENMT: COMMON NORMALS: normocephalic, atraumatic and moist oral mucous membranes HEAD & SCALP: normocephalic and atraumatic Neck/C-Spine: COMMON NORMALS: no meningeal signs and no JVD Resp: COMMON NORMALS: normal respiratory effort, No retractions, No use of accessory muscles, clear to auscultation bilaterally and percussion normal AUSCULTATION: clear to auscultation bilaterally PERCUSSION: percussion normal Cardio: COMMON NORMALS: no JVD, regular rate, regular rhythm, S1 normal heart sound present, S2 normal heart sound present, No gallops present (Cardio), No clicks present (Cardio), No murmurs present (Cardio), No rub (Cardio) and Peripheral pulses 2+ throughout RATE: regular rate RHYTHM: regular rhythm HEART SOUNDS: S1 normal heart sound present and S2 normal heart sound present PERIPHERAL PULSES: Peripheral pulses 2+ throughout GI: COMMON NORMALS: Normal to inspection, nondistended, normoactive bowel sounds present, Soft to palpation, No hepatosplenomegaly present, no masses and no bruits PALPATION: Yes Soft to palpation, Yes Tenderness to palpation present (GI) (epigastric) and Yes No hepatosplenomegaly present Extremity: COMMON NORMALS: normal to inspection, full ROM, capillary refill normal, no calf tenderness and no pedal edema Neuro: COMMON NORMALS: patient oriented x3 SENSORIUM/ORIENTATION: Yes alert MENINGEAL SIGNS: Yes no meningeal signs Skin: COMMON NORMALS: no rashes or lesions noted, no wounds, turgor normal, no jaundice, no petechiae and no mottling GENERAL SKIN EXAM: no rashes or lesions noted and turgor normal Course Reevaluation(s): Reevaluation #1: Discussed her lab findings with her. Negative for acute findings. Symptoms are likely secondary to esophagitis/gastritis. We will discharge her home. She already takes pantoprazole. She is advised to avoid spicy foods, fatty foods, and other foods that may aggravate the symptoms including acidic foods. She is advised to follow-up with the surgeon on Monday as scheduled. She voiced understanding and is in agreement with the plan. Time: 14:56 Vital Signs: Vital signs: Vital Signs Temperature 99.4 F 02/23/20 13:02 Pulse Rate 90 02/23/20 13:26 Respiratory Rate 18 02/23/20 14:55 Blood Pressure 143/92 02/23/20 13:26 Pulse Oximetry 96 02/23/20 14:55 MDM - Abdominal Pain MDM Narrative: Medical decision making narrative: 54-year-old female patient who is a frequent visitor to the emergency department and presents with epigastric pain today. With this patient is unfortunately extremely difficult to determine when her pain is real and when it is not. However her evaluation today shows her vital signs are normal, she is not tachycardic, she is not hypertensive, labs are unremarkable. She has had a big work-up recently and has a follow-up appointment with the surgeon on Monday. I will therefore discharge her home with no new orders. Medical Records: Attestation: I reviewed the patient's medical records. Lab Data: Attestation: I reviewed the patient's lab results. Labs: Lab Results 02/23/20 02/23/20 02/23/20 Range/Units 13:20 13:20 13:20 WBC 7.1 (4.0-10.0) 10^3/ uL RBC 4.64 (4.1-5.3) 10^6/u L Hgb 12.8 (11.5-15.3) g/dL Hct 41.1 (37.0-47.0) % MCV 88.6 (81-99) fL MCH 27.6 L (28.0-34.0) pg MCHC 31.1 (30.0-36.0) g/dL RDW 15.9 H (12.1-15.1) % Plt Count 262 (130-400) 10^3/c mm MPV 10.1 (7.4-10.4) fL Neut % (Auto) 60.1 % Lymph % (Auto) 26.0 % Toole % (Auto) 9.0 % Eos % (Auto) 3.5 % Baso % (Auto) 1.0 % Neut # (Auto) 4.25 (1.8-7.7) 10^3/u L Lymph # (Auto) 1.8 (0.8-4.8) 10^3/u L Toole # (Auto) 0.6 (0.2-0.9) 10^3/u L Eos # (Auto) 0.3 (0.0-0.8) 10^3/u L Baso # (Auto) 0.1 (0.0-0.1) 10^3/u L Nucleated RBC % (a uto) 0 % Nucleated RBCs # 0.0 /100WBC Sodium 139 (136-145) mmol/L Potassium 4.3 (3.5-5.1) mmol/L Chloride 105 (98-107) mmol/L Carbon Dioxide 23 (22-29) mmol/L Anion Gap 15.3 (5-19) BUN 11 (6-20) mg/dL Creatinine 1.0 H (0.5-0.9) mg/dL GFR Calculation 58.2 L (90-130) mL/min Glucose 113 (65-115) mg/dL Calculated Osmolal ity 285 (285-295) mOsm/k g Lactate 1.0 (0.5-2.2) mmol/L Calcium 8.9 (8.5-10.5) mg/dL Total Bilirubin 0.2 (0.15-1.2) mg/dL AST 14 (0-32) U/L ALT 10 (0-33) U/L Alkaline Phosphata se 134 H (35-105) IU/L Total Protein 6.5 L (6.6-8.7) g/dL Albumin 3.6 (3.5-5.2) g/dL Globulin 2.9 (1.3-4.6) g/dL Lipase 40 (13-60) U/L Urine Color (Yellow) Urine Appearance (CLEAR) Urine pH (5-7) Ur Specific Gravit y (1.005-1.030) Urine Protein (Negative) Urine Glucose (UA) (Normal) Urine Ketones (Negative) Urine Blood (Negative) Urine Nitrate (Negative) Urine Bilirubin (NEGATIVE) Urine Urobilinogen (Negative) mg/dL Ur Leukocyte Stephanie ase (Negative) Urine RBC (0-2) /hpf Urine WBC (0-5) /hpf Ur Squamous Epith Cells (0-5) Amorphous Sediment Urine Bacteria (NONE) Urine Mucus 02/23/20 Range/Units 13:21 WBC (4.0-10.0) 10^3/ uL RBC (4.1-5.3) 10^6/u L Hgb (11.5-15.3) g/dL Hct (37.0-47.0) % MCV (81-99) fL MCH (28.0-34.0) pg MCHC (30.0-36.0) g/dL RDW (12.1-15.1) % Plt Count (130-400) 10^3/c mm MPV (7.4-10.4) fL Neut % (Auto) % Lymph % (Auto) % Toole % (Auto) % Eos % (Auto) % Baso % (Auto) % Neut # (Auto) (1.8-7.7) 10^3/u L Lymph # (Auto) (0.8-4.8) 10^3/u L Toole # (Auto) (0.2-0.9) 10^3/u L Eos # (Auto) (0.0-0.8) 10^3/u L Baso # (Auto) (0.0-0.1) 10^3/u L Nucleated RBC % (a uto) % Nucleated RBCs # /100WBC Sodium (136-145) mmol/L Potassium (3.5-5.1) mmol/L Chloride (98-107) mmol/L Carbon Dioxide (22-29) mmol/L Anion Gap (5-19) BUN (6-20) mg/dL Creatinine (0.5-0.9) mg/dL GFR Calculation (90-130) mL/min Glucose (65-115) mg/dL Calculated Osmolal ity (285-295) mOsm/k g Lactate (0.5-2.2) mmol/L Calcium (8.5-10.5) mg/dL Total Bilirubin (0.15-1.2) mg/dL AST (0-32) U/L ALT (0-33) U/L Alkaline Phosphata se (35-105) IU/L Total Protein (6.6-8.7) g/dL Albumin (3.5-5.2) g/dL Globulin (1.3-4.6) g/dL Lipase (13-60) U/L Urine Color Yellow (Yellow) Urine Appearance Hazy A (CLEAR) Urine pH 7 (5-7) Ur Specific Gravit y 1.005 (1.005-1.030) Urine Protein Neg (Negative) Urine Glucose (UA) Norm (Normal) Urine Ketones Negative (Negative) Urine Blood Neg (Negative) Urine Nitrate Negative (Negative) Urine Bilirubin Neg (NEGATIVE) Urine Urobilinogen 1 H (Negative) mg/dL Ur Leukocyte Stephanie ase Negative (Negative) Urine RBC None (0-2) /hpf Urine WBC None (0-5) /hpf Ur Squamous Epith Cells 55-80 H (0-5) Amorphous Sediment Not Reportable Urine Bacteria 1+ H (NONE) Urine Mucus Trace Discharge Plan Discharge Patient Disposition: Home Clinical Impression: Gastritis Qualifiers: Gastritis type: unspecified gastritis Chronicity: chronic Gastritis bleeding: without bleeding Qualified Code(s): K29.50 - Unspecified chronic gastritis without bleeding Condition: Stable Prescriptions: Continued loratadine 10 mg tablet 10 mg PO DAILY Qty: 90 RF: 0 hydrocodone-acetaminophen [Madison] 5-325 mg tablet 1 tab PO Q6H PRNRF: 0 Narcan 4 mg/actuation spray,non-aerosol 4 mg INTRANASAL Q2M PRNRF: 0 ondansetron 4 mg tablet,disintegrating 4 mg PO Q6H PRNRF: 0 budesonide [Pulmicort] 0.5 mg/2 mL suspension for nebulization 0.5 mg INHALATION BID 30 Days Qty: 120 RF: 2 buspirone 10 mg tablet 10 mg PO TID Qty: 90 RF: 0 hydroxyzine pamoate 50 mg capsule 50 mg PO TID PRN (Reason: Anxiety) Qty: 90 RF: 0 lamotrigine 200 mg tablet 200 mg PO DAILY Qty: 30 RF: 0 quetiapine [Seroquel] 300 mg tablet 300 mg PO BEDTIME Qty: 30 RF: 0 trazodone 100 mg tablet 200 mg PO BEDTIME 30 Days Qty: 60 RF: 0 venlafaxine 75 mg capsule,extended release 24hr 75 mg PO BID Qty: 60 RF: 0 polyethylene glycol 3350 [Miralax] 17 gram/dose powder 17 gm PO DAILY PRN (Reason: constipation) RF: 0 ipratropium-albuterol 0.5 mg-3 mg(2.5 mg base)/3 mL solution for nebulization 3 ml INHALATION Q4H PRN (Reason: Shortness Of Breath) RF: 0 aspirin 81 mg tablet,delayed release (DR/EC) 81 mg PO DAILY RF: 0 Ingrezza 80 mg capsule 80 mg PO DAILY 1 Days RF: 2 pantoprazole 40 mg tablet,delayed release (DR/EC) See Rx Instructions .ROUTE .COMPLEX Qty: 180 RF: 3 lorazepam 0.5 mg tablet 0.5 mg PO DAILY PRN (Reason: Anxiety) 30 Days Qty: 30 RF: 0 Trelegy Ellipta 100-62.5-25 mcg blister with device 1 inh INHALATION DAILY RF: 0 Tylenol 325 mg Tablet 325 - 650 mg PO QID PRN (Reason: Pain) RF: 0 promethazine [Promethegan] 25 mg suppository 25 mg OK Q12H PRN (Reason: Nausea And Vomiting) RF: 0 Discharge Orders: Discharge Order (Routine); Ordered 02/23/20 Ordered By: Elva Weston Referrals: Dara Tavera FNP [Primary Care Provider] - 4-7 days Discharge Diet: Low Fat Discharge Activity: Resume usual activity Patient Instructions: Gastritis (ED) Activity Restrictions/Additional Instructions: Return for any new or worsening symptoms. Follow-up with your surgeon as scheduled on Monday. Follow-up with your primary care provider within 1 week. Avoid acidic foods, spicy foods, fatty foods, alcohol, cigarettes, caffeine and see if these help your symptoms. Continue your home medications. Coding Level of Care Code ED [employer] for [employer]g Fwd Exam Comprehensive
[2020-02-23] MEDS: lidocaine 2% viscous 15 ML, aluminum-mag hydrox-simethicon 30 ML, sucralfate oral liq 1 GM PO (13:25)
[2020-02-23 13:26] VITALS: BP 143/92; PULSE 90; RESP 20; O2SAT 94
[2020-02-23 13:27] LABS: Basophils # 0.1 10^3/uL (0.0-0.1); Eosinophils # 0.3 10^3/uL (0.0-0.8); Eosinophils % 3.5 %; Hematocrit 41.1 % (37.0-47.0); Hemoglobin 12.8 g/dL (11.5-15.3); Lymphocytes # 1.8 10^3/uL (0.8-4.8); Mean Corpuscular HGB Conc 31.1 g/dL (30.0-36.0); Mean Corpuscular Hemoglobin 27.6 pg (28.0-34.0); Mean Corpuscular Volume 88.6 fL (81-99); Mean Platelet Volume 10.1 fL (7.4-10.4); Monocytes # 0.6 10^3/uL (0.2-0.9); Neutrophils # 4.25 10^3/uL (1.8-7.7); Neutrophils % 60.1 %; Nucleated Red Blood Cells % 0 %; Platelet Count 262 10^3/cmm (130-400); Red Blood Count 4.64 10^6/uL (4.1-5.3); Red Cell Distribution Width 15.9 % (12.1-15.1); White Blood Count 7.1 10^3/uL (4.0-10.0)
[2020-02-23 13:48] LABS: Add Urine Microscopic? YES; Bilirubin Urine Neg (NEGATIVE); Blood Urine Neg (Negative); Glucose Urine UA Norm (Normal); Ketones Urine Negative (Negative); Leukocyte Esterase Urine Negative (Negative); Nitrate Urine Negative (Negative); Protein Urine Neg (Negative); Specific Gravity, Urine 1.005 (1.005-1.030); Urine Appearance Hazy (CLEAR); Urine Color Yellow (Yellow); Urobilinogen Urine 1 mg/dL (Negative); pH Urine 7 (5-7)
[2020-02-23 13:51] LABS: Alanine Aminotransferase 10 U/L (0-33); Albumin Level 3.6 g/dL (3.5-5.2); Alkaline Phosphatase 134 IU/L (35-105); Anion Gap 15.3 (5-19); Aspartate Amino Transferase 14 U/L (0-32); Blood Urea Nitrogen 11 mg/dL (6-20); Calcium 8.9 mg/dL (8.5-10.5); Carbon Dioxide 23 mmol/L (22-29); Chloride 105 mmol/L (98-107); Globulin 2.9 g/dL (1.3-4.6); Glomerular Filtration Rate 58.2 mL/min (90-130); Glucose 113 mg/dL (65-115); Lipase 40 U/L (13-60); Osmolality Calculated 285 mOsm/kg (285-295); Potassium 4.3 mmol/L (3.5-5.1); Sodium 139 mmol/L (136-145); Total Bilirubin 0.2 mg/dL (0.15-1.2); Total Protein 6.5 g/dL (6.6-8.7)
[2020-02-23 14:03] LABS: Add Urine Culture? No; Bacteria Urine 1+; Mucus Urine TRACE; Squamous Epithelial Cell Urine 55-80 (0-5)
--- NOTE | 2020-02-23 14:28 | PC.NURSE ---
INFORMED DR. ZHAO OF PT CO PAIN AND WANTING PAIN MEDICATION VERBALIZED UNDERSTANDING NO FURTHER ORDERS.
[2020-02-23 14:55] VITALS: RESP 18; O2SAT 96
[2020-02-23] MEDS: morphine 4 mg/mL SDV 1 mL IVP (14:55)
[2020-02-23] MEDS: ondansetron 2 mg/ML SDV 2 mL 4 MG IVP (14:55)
--- NOTE | 2020-02-23 15:14 | ED_ITS ---
HPI - General Adult General: Chief complaint: Abdominal Pain Stated complaint: ABD PAIN Time Seen by Provider: 02/23/20 13:03 Source: patient and old records reviewed Mode of arrival: EMS Limitations: no limitations PFSH ED PFSH: Medical History Bladder stone Borderline personality disorder Chronic anxiety Chronic back pain greater than 3 months duration Chronic cystitis with hematuria COPD (chronic obstructive pulmonary disease) Foreign body in bladder GERD without esophagitis Neurogenic bladder Nicotine dependence, cigarettes, with other nicotine-induced disorders Quit in 2019 Oxygen dependent Schizoaffective disorder, bipolar type Urgency incontinence Surgical History H/O: hysterectomy History of appendectomy History of breast biopsy History of ureter stent Hx of cholecystectomy S/P bronchoscopy with biopsy Family History Other Asthma Cancer Diabetes Heart disease Social History Smoking and tobacco status: former smoker Quit status (tobacco): has quit using tobacco Year quit tobacco: 2019 - PD x 25 Years Alcohol intake: never Lives independently: Yes Household members: spouse Marital status: Number of children: 3 Current occupational status: disabled History of recent travel: No Current gender identity: Female Female Reproductive History: Date of last menstrual period: 06/19/95 Procedures EJ/Peripheral Line Arm L: Time Out Performed: Yes Skin Cleansed in Sterile Fashion: Yes Size (gauge): 18 IV Secured and Dressing Applied: Yes Patient Tolerated Procedure: well Additional Comments: Ultrasound was utilized throughout the procedure. Needle was visualized entering the vein with good blood flash shortly thereafter. Catheter was advanced and double secured. Ultrasound visualized catheter in the vein. There is good blood return and good flush without any discomfort. Course Vital Signs: Vital signs: Vital Signs Temperature 99.4 F 02/23/20 13:02 Pulse Rate 90 02/23/20 13:26 Respiratory Rate 18 02/23/20 14:55 Blood Pressure 143/92 02/23/20 13:26 Pulse Oximetry 96 02/23/20 14:55 [facility] - General Adult Lab Data: Labs: Lab Results 02/23/20 02/23/20 02/23/20 Range/Units 13:20 13:20 13:20 WBC 7.1 (4.0-10.0) 10^3/ uL RBC 4.64 (4.1-5.3) 10^6/u L Hgb 12.8 (11.5-15.3) g/dL Hct 41.1 (37.0-47.0) % MCV 88.6 (81-99) fL MCH 27.6 L (28.0-34.0) pg MCHC 31.1 (30.0-36.0) g/dL RDW 15.9 H (12.1-15.1) % Plt Count 262 (130-400) 10^3/c mm MPV 10.1 (7.4-10.4) fL Neut % (Auto) 60.1 % Lymph % (Auto) 26.0 % [place] % (Auto) 9.0 % Eos % (Auto) 3.5 % Baso % (Auto) 1.0 % Neut # (Auto) 4.25 (1.8-7.7) 10^3/u L Lymph # (Auto) 1.8 (0.8-4.8) 10^3/u L [place] # (Auto) 0.6 (0.2-0.9) 10^3/u L Eos # (Auto) 0.3 (0.0-0.8) 10^3/u L Baso # (Auto) 0.1 (0.0-0.1) 10^3/u L Nucleated RBC % (a uto) 0 % Nucleated RBCs # 0.0 /100WBC Sodium 139 (136-145) mmol/L Potassium 4.3 (3.5-5.1) mmol/L Chloride 105 (98-107) mmol/L Carbon Dioxide 23 (22-29) mmol/L Anion Gap 15.3 (5-19) BUN 11 (6-20) mg/dL Creatinine 1.0 H (0.5-0.9) mg/dL GFR Calculation 58.2 L (90-130) mL/min Glucose 113 (65-115) mg/dL Calculated Osmolal ity 285 (285-295) mOsm/k g Lactate 1.0 (0.5-2.2) mmol/L Calcium 8.9 (8.5-10.5) mg/dL Total Bilirubin 0.2 (0.15-1.2) mg/dL AST 14 (0-32) U/L ALT 10 (0-33) U/L Alkaline Phosphata se 134 H (35-105) IU/L Total Protein 6.5 L (6.6-8.7) g/dL Albumin 3.6 (3.5-5.2) g/dL Globulin 2.9 (1.3-4.6) g/dL Lipase 40 (13-60) U/L Urine Color (Yellow) Urine Appearance (CLEAR) Urine pH (5-7) Ur Specific Gravit y (1.005-1.030) Urine Protein (Negative) Urine Glucose (UA) (Normal) Urine Ketones (Negative) Urine Blood (Negative) Urine Nitrate (Negative) Urine Bilirubin (NEGATIVE) Urine Urobilinogen (Negative) mg/dL Ur Leukocyte Stephanie ase (Negative) Urine RBC (0-2) /hpf Urine WBC (0-5) /hpf Ur Squamous Epith Cells (0-5) Amorphous Sediment Urine Bacteria (NONE) Urine Mucus 02/23/20 Range/Units 13:21 WBC (4.0-10.0) 10^3/ uL RBC (4.1-5.3) 10^6/u L Hgb (11.5-15.3) g/dL Hct (37.0-47.0) % MCV (81-99) fL MCH (28.0-34.0) pg MCHC (30.0-36.0) g/dL RDW (12.1-15.1) % Plt Count (130-400) 10^3/c mm MPV (7.4-10.4) fL Neut % (Auto) % Lymph % (Auto) % [place] % (Auto) % Eos % (Auto) % Baso % (Auto) % Neut # (Auto) (1.8-7.7) 10^3/u L Lymph # (Auto) (0.8-4.8) 10^3/u L [place] # (Auto) (0.2-0.9) 10^3/u L Eos # (Auto) (0.0-0.8) 10^3/u L Baso # (Auto) (0.0-0.1) 10^3/u L Nucleated RBC % (a uto) % Nucleated RBCs # /100WBC Sodium (136-145) mmol/L Potassium (3.5-5.1) mmol/L Chloride (98-107) mmol/L Carbon Dioxide (22-29) mmol/L Anion Gap (5-19) BUN (6-20) mg/dL Creatinine (0.5-0.9) mg/dL GFR Calculation (90-130) mL/min Glucose (65-115) mg/dL Calculated Osmolal ity (285-295) mOsm/k g Lactate (0.5-2.2) mmol/L Calcium (8.5-10.5) mg/dL Total Bilirubin (0.15-1.2) mg/dL AST (0-32) U/L ALT (0-33) U/L Alkaline Phosphata se (35-105) IU/L Total Protein (6.6-8.7) g/dL Albumin (3.5-5.2) g/dL Globulin (1.3-4.6) g/dL Lipase (13-60) U/L Urine Color Yellow (Yellow) Urine Appearance Hazy A (CLEAR) Urine pH 7 (5-7) Ur Specific Gravit y 1.005 (1.005-1.030) Urine Protein Neg (Negative) Urine Glucose (UA) Norm (Normal) Urine Ketones Negative (Negative) Urine Blood Neg (Negative) Urine Nitrate Negative (Negative) Urine Bilirubin Neg (NEGATIVE) Urine Urobilinogen 1 H (Negative) mg/dL Ur Leukocyte Stephanie ase Negative (Negative) Urine RBC None (0-2) /hpf Urine WBC None (0-5) /hpf Ur Squamous Epith Cells 55-80 H (0-5) Amorphous Sediment Not Reportable Urine Bacteria 1+ H (NONE) Urine Mucus Trace Discharge Plan Discharge Patient Disposition: Home Clinical Impression: Gastritis Qualifiers: Gastritis type: unspecified gastritis Chronicity: chronic Gastritis bleeding: without bleeding Qualified Code(s): K29.50 - Unspecified chronic gastritis without bleeding Condition: Stable Prescriptions: Continued loratadine 10 mg tablet 10 mg PO DAILY Qty: 90 RF: 0 hydrocodone-acetaminophen [[place]] 5-325 mg tablet 1 tab PO Q6H PRNRF: 0 Narcan 4 mg/actuation spray,non-aerosol 4 mg INTRANASAL Q2M PRNRF: 0 ondansetron 4 mg tablet,disintegrating 4 mg PO Q6H PRNRF: 0 budesonide [Pulmicort] 0.5 mg/2 mL suspension for nebulization 0.5 mg INHALATION BID 30 Days Qty: 120 RF: 2 buspirone 10 mg tablet 10 mg PO TID Qty: 90 RF: 0 hydroxyzine pamoate 50 mg capsule 50 mg PO TID PRN (Reason: Anxiety) Qty: 90 RF: 0 lamotrigine 200 mg tablet 200 mg PO DAILY Qty: 30 RF: 0 quetiapine [Seroquel] 300 mg tablet 300 mg PO BEDTIME Qty: 30 RF: 0 trazodone 100 mg tablet 200 mg PO BEDTIME 30 Days Qty: 60 RF: 0 venlafaxine 75 mg capsule,extended release 24hr 75 mg PO BID Qty: 60 RF: 0 polyethylene glycol 3350 [Miralax] 17 gram/dose powder 17 gm PO DAILY PRN (Reason: constipation) RF: 0 ipratropium-albuterol 0.5 mg-3 mg(2.5 mg base)/3 mL solution for nebulization 3 ml INHALATION Q4H PRN (Reason: Shortness Of Breath) RF: 0 aspirin 81 mg tablet,delayed release (DR/EC) 81 mg PO DAILY RF: 0 Ingrezza 80 mg capsule 80 mg PO DAILY 1 Days RF: 2 pantoprazole 40 mg tablet,delayed release (DR/EC) See Rx Instructions .ROUTE .COMPLEX Qty: 180 RF: 3 lorazepam 0.5 mg tablet 0.5 mg PO DAILY PRN (Reason: Anxiety) 30 Days Qty: 30 RF: 0 Trelegy Ellipta 100-62.5-25 mcg blister with device 1 inh INHALATION DAILY RF: 0 Tylenol 325 mg Tablet 325 - 650 mg PO QID PRN (Reason: Pain) RF: 0 promethazine [Promethegan] 25 mg suppository 25 mg DC Q12H PRN (Reason: Nausea And Vomiting) RF: 0 Discharge Orders: Discharge Order (Routine); Ordered 02/23/20 Ordered By: Elva Weston Referrals: Dara Tavera, HEALTH SOCIAL WORK PROFESSOR [Primary Care Provider] - 4-7 days Discharge Diet: Low Fat Discharge Activity: Resume usual activity Patient Instructions: Gastritis (ED) Activity Restrictions/Additional Instructions: Return for any new or worsening symptoms. Follow-up with your surgeon as scheduled on Monday. Follow-up with your primary care provider within 1 week. Avoid acidic foods, spicy foods, fatty foods, alcohol, cigarettes, caffeine and see if these help your symptoms. Continue your home medications. Coding Level of Care Code ED Real Estate Salesperson for Shellie Guallpa
[2020-02-23 15:38] VITALS: BP 108/74; PULSE 86; RESP 16; O2SAT 94
--- NOTE | 2020-02-23 15:40 | PC.NURSE ---
REMOVED IV IN LEFT UPPER ARM. CATHETER INTACT. PRESSURE DRESSING APPLIED WITH INSTRUCTIONS TO REMOVE.
== END 2020-02-23 15:42 | disposition home or self-care (01) ==
PROVIDERS: Emergency Provider Family Medicine; PCP Registered Nurse
DX: K29.50 Unspecified chronic gastritis without bleeding (principal); Z79.82 Long term (current) use of aspirin; J44.9 Chronic obstructive pulmonary disease, unspecified; Z87.891 Personal history of nicotine dependence
CPT/HCPCS: 12345; 36415; 80053; 81001; 83605; 83690; 85025; 96374; 96375; 99282; 99284; J2270; J2405

== ENCOUNTER 2020-02-26 10:37 | Outpatient (CLI) | payer MEDICARE, MEDICAID, SELFPAY ==
--- NOTE | 2020-02-26 11:10 | PFTS_ITS ---
Date of Study:02/26/20 Date of Dictation: 02/28/2020 MECHANICS: Forced vital capacity (FVC) is . Reduced Forced expiratory volume in one second (FEV1) is . Reduced FEV1/FVC is . Normal No significant response to bronchodilators FLOW VOLUME LOOP: No flow volume loop abnormality observed . LUNG VOLUMES: Total lung capacity (TLC) is low normal. Residual volume (RV) is . Normal DIFFUSING CAPACITY FOR CARBON MONOXIDE: Severely reduced . INTERPRETATION: Spirometry when interpreted with low normal TLC and a severely reduced gas transfer defect suggest significant restrictive lung pathology. Correlate clinically. MTDD
== END 2020-02-26 10:38 | disposition home or self-care (01) ==
LOC: RT 10:40
PROVIDERS: PCP Registered Nurse; Visit Provider Internal Medicine Critical Care Medicine
DX: R59.0 Localized enlarged lymph nodes (principal)
CPT/HCPCS: 94060; 94726; 94729; J7611

== ENCOUNTER 2020-02-28 19:47 | Emergency (ER) | payer MEDICARE, MEDICAID, SELFPAY ==
[2020-02-28] VITALS (9 sets, daily range): BP systolic 103–125; BP diastolic 68–83; PULSE 75–95; RESP 14–17; TEMP 36.7; O2SAT 92–100; BMI 32.9
--- NOTE | 2020-02-28 19:51 | XRR_ITS ---
PROCEDURE INFORMATION: Exam: XR Chest, 1 View Exam date and time: 02/28/2020 8:24 PM Age: 54 years old Clinical indication: Pain; Other: Abd; Additional info: Upper abdominal pain TECHNIQUE: Imaging protocol: XR of the chest Views: 1 view. COMPARISON: CR XR chest 1V portable [id number] 02/13/2020 5:48 PM FINDINGS: The lungs are clear of infiltrate. There are no pleural effusions or pneumothorax. The heart size and pulmonary vascularity are normal. XR/XR chest 1V portable [id number] IMPRESSION: No active disease.
--- NOTE | 2020-02-28 19:51 | ECG_ITS ---
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 Measurements Intervals Elizabeth Rate: 77 P: 61 TX: 153 QRS: 66 QRSD: 94 T: 68 QT: 393 QTc: 446 Interpretive Statements SINUS RHYTHM POSSIBLE LEFT ATRIAL ENLARGEMENT [-0.1mV P WAVE IN V1/V2] INDETERMINATE AXIS Compared to ECG 02/13/2020 18:34:48 Indeterminate axis now present Electronically Signed On 02-29-2020 16:20:34 CDT by Frances Loja M.D. [email or web address] [email or web address] Softwaremercy health [id number]
--- NOTE | 2020-02-28 19:53 | ED_ITS ---
HPI - Abdominal Pain General: Chief Complaint: Abdominal Pain Stated Complaint: n/v Time Seen by Provider: 02/28/20 19:51 Source: patient and EMS Mode of arrival: EMS Limitations: no limitations History of Present Illness: HPI narrative: Latesha is a 54-year-old female who comes in complaining of epigastric pain along with nausea and vomiting. Patient has a history of this problem that is been ongoing. She is being evaluated on an outpatient basis by Dr. Medley. Is scheduled to have a EGD next Monday. Patient states she is had more of the same problems today where she tries to eat or drink something and it begins to hurt her abdomen and then she throws up. She does feel like the food goes all the way down but then she gets sick in her stomach and vomits. Patient denies any chest pain, shortness of breath, fever, chills, lower abdominal pain or any other new symptoms. She states this is a chronic recurring problem for her. Associated Symptoms: Reports nausea and vomiting; Denies chills, coffee ground emesis, constipation, GI cramping, diarrhea, dysuria, fever(s), heartburn, hematochezia, hematuria, hematemesis, melena and syncope Related Data: Date of Last Menstrual Period: 06/19/95 Review of Systems Const: Denies: fever(s), chills, body aches, fatigue, malaise or diaphoresis Eyes: Denies: change in vision, blurry vision, photophobia, eye discomfort, eye discharge, eye redness or yellow eyes ENMT: Denies: throat pain, odynophagia, hoarseness, swelling of lips/tongue, ear or mastoid pain, ear discharge, change in hearing or nasal discharge Card: Denies: chest pain, palpitations, irregular heart rhythm, edema, lightheadedness, syncope, pre-syncope, dyspnea on exertion or orthopnea Resp: Denies: dyspnea, productive cough, non-productive cough, wheezing, hemoptysis or chest congestion GI: Reports: abdominal pain, nausea and vomiting; Denies: hematemesis, coffee ground emesis, heartburn, diarrhea, constipation, GI cramping, hematochezia or melena : Denies: flank pain, dysuria, urinary frequency, urinary urgency or hematuria Musc: Denies: neck pain, back pain, extremity pain, extremity swelling, joint pain, joint swelling, joint redness, joint warmth or joint stiffness Skin/Breast: Denies: rash, pruritus, erythema, skin pain or skin tenderness Neuro: Denies: headache(s), numbness in extremities, weakness in extremities, sensory changes, lack of coordination, difficulty walking, dizziness, vertigo, confusion, Slurred speech present or seizure-like activity Wilbur/Lymph: Denies: easy bruising, easy bleeding, petechiae, purpura or enlarged lymph nodes All/Imm: Denies: urticaria, throat swelling, tongue swelling, facial swelling or acute wheezing PFSH ED PFSH: Medical History Bladder stone Borderline personality disorder Chronic anxiety Chronic back pain greater than 3 months duration Chronic cystitis with hematuria COPD (chronic obstructive pulmonary disease) Foreign body in bladder GERD without esophagitis Neurogenic bladder Nicotine dependence, cigarettes, with other nicotine-induced disorders Quit in 2019 Oxygen dependent Schizoaffective disorder, bipolar type Urgency incontinence Surgical History H/O: hysterectomy History of appendectomy History of breast biopsy History of ureter stent Hx of cholecystectomy S/P bronchoscopy with biopsy Family History Other Asthma Cancer Diabetes Heart disease Social History Smoking and tobacco status: former smoker Quit status (tobacco): has quit using tobacco Year quit tobacco: 2019 - 1PPD x 25 Years Alcohol intake: never Lives independently: Yes Household members: spouse Marital status: Number of children: 3 Current occupational status: disabled History of recent travel: No Current gender identity: Female Female Reproductive History: Date of last menstrual period: 06/19/95 Physical Exam Const: COMMON NORMALS: no acute distress, patient oriented x3, no limitations and alert GENERAL APPEARANCE: cooperative HENMT: COMMON NORMALS: normocephalic, atraumatic, external ears normal, EAC's normal and Normal external nose present HEAD & SCALP: normal to inspection, normocephalic and atraumatic FACE & SINUS: normal facial exam and face symmetric NOSE: Normal external nose present and Normal nares present EXTERNAL EAR: Yes external ears normal EXTERNAL AUDITORY CANAL: EAC's normal MOUTH: Normal oral and palatal mucosa present, lip normal and tongue normal Eye: COMMON NORMALS: Equal, round and reactive pupils present and conjunctivae normal GENERAL EYE: appearance normal, both eyes and all related structures ALIGNMENT: Yes alignment normal PERIORBITAL: periorbital findings normal EYELID: eyelids normal CONJUNCTIVA: Yes conjunctivae normal SCLERA: sclerae normal PUPIL: Yes Equal, round and reactive pupils present Neck/C-Spine: COMMON NORMALS: full ROM, no lymphadenopathy, supple, no meningeal signs and no JVD GENERAL: Yes normal visual inspection and Yes trachea midline Chest: COMMONS NORMALS: normal inspection of the chest and normal palpation of entire chest wall Resp: COMMON NORMALS: normal respiratory effort, No retractions, No use of accessory muscles and clear to auscultation bilaterally EFFORT & INSPECTION: Yes able to speak in complete sentences and Yes symmetric chest movement AUSCULTATION: clear to auscultation bilaterally, no crackles, no rales, no rhonchi and no wheezes Cardio: COMMON NORMALS: no JVD, regular rate, regular rhythm, S1 normal heart sound present and S2 normal heart sound present RATE: regular rate RHYTHM: regular rhythm HEART SOUNDS: S1 normal heart sound present, S2 normal heart sound present, no click, no gallops, no murmurs and no rubs GI: COMMON NORMALS: Soft to palpation and No hepatosplenomegaly present PALPATION: Yes Soft to palpation, Yes Tenderness to palpation present (GI) (Epigastric area), No Guarding due to palpation present (GI), No Rigid due to palpation, Yes No hepatosplenomegaly present, No Hernia present, No Palpable mass present and No Pulsatile mass present : COMMON NORMALS: Yes no CVA tenderness BLADDER/KIDNEY EXAM: Yes no CVA tenderness EXTERNAL FEMALE EXAM: No Hernia present Back/Pelvis: COMMON NORMALS: no CVA tenderness, thoracic and lumbar spine normal to inspection, no thoracic nor lumbar tenderness and thoraco-lumbar ROM normal Extremity: COMMON NORMALS: normal to inspection, full ROM, capillary refill normal, no joint enlargement, no clubbing, cyanosis or edema and no calf tenderness Neuro: COMMON NORMALS: patient oriented x3, CN's II-XII intact bilaterally, moves all extremities, no focal motor deficits and no sensory deficits noted SENSORIUM/ORIENTATION: Yes alert MENINGEAL SIGNS: Yes no meningeal signs SPEECH: speech normal Psych: COMMON NORMALS: mental status grossly normal, Normal thought process present, cooperative, normal affect, speech normal and activity/motor behavior normal SPEECH: Yes normal speech THOUGHT PROCESS: Normal thought process present Skin: COMMON NORMALS: no rashes or lesions noted, turgor normal, no jaundice, no petechiae and no mottling GENERAL SKIN EXAM: no rashes or lesions noted and turgor normal Procedures EJ/Peripheral Line Arm L: Time Out Performed: Yes Skin Cleansed in Sterile Fashion: Yes Size (gauge): 18 IV Secured and Dressing Applied: Yes Patient Tolerated Procedure: well Additional Comments: 18-gauge Angiocath was placed under ultrasound guidance. Needle was visualized entering the vessel and then catheter advanced with good blood return. Ports flushed and blood withdrawn. Course Vital Signs: Vital signs: Vital Signs Temperature 98.0 F 02/28/20 19:50 Pulse Rate 75 02/28/20 22:30 Respiratory Rate 14 02/28/20 22:30 Blood Pressure 117/83 02/28/20 22:30 Pulse Oximetry 97 02/28/20 22:30 MDM - Abdominal Pain MDM Narrative: Medical decision making narrative: Latesha is a nice 54-year-old female who comes in complaining of abdominal pain. She says she is having a flareup of her chronic abdominal pain which is under the outpatient investigation by Dr. Medley. Her CT of her abdomen pelvis shows nothing acute. Her gallbladder is surgically gone. Her CT did show some inflammatory changes in her lungs but these are chronic and the patient has been admitted and worked up several times for pneumonia. Patient has no complaint of cough, fever or shortness of breath. She is feeling better with the pain medicine and nausea medicine I have given her here. I will go ahead and discharge her home with medicine for nausea per her request. Medical Records: Attestation: I reviewed the patient's medical records. Lab Data: Attestation: I reviewed the patient's lab results. Labs: Lab Results 02/28/20 02/28/20 02/28/20 Range/Units 20:14 20:17 20:17 WBC 16.3 H (4.0-10.0) 10^3/ uL RBC 4.57 (4.1-5.3) 10^6/u L Hgb 12.8 (11.5-15.3) g/dL Hct 39.9 (37.0-47.0) % MCV 87.3 (81-99) fL MCH 28.0 (28.0-34.0) pg MCHC 32.1 (30.0-36.0) g/dL RDW 15.6 H (12.1-15.1) % Plt Count 249 (130-400) 10^3/c mm MPV 10.1 (7.4-10.4) fL Neut % (Auto) 75.3 % Lymph % (Auto) 14.3 % [place] % (Auto) 6.9 % Eos % (Auto) 2.2 % Baso % (Auto) 0.7 % Neut # (Auto) 12.28 H (1.8-7.7) 10^3/u L Lymph # (Auto) 2.3 (0.8-4.8) 10^3/u L [place] # (Auto) 1.1 H (0.2-0.9) 10^3/u L Eos # (Auto) 0.4 (0.0-0.8) 10^3/u L Baso # (Auto) 0.1 (0.0-0.1) 10^3/u L Nucleated RBC % (a uto) 0 % Nucleated RBCs # 0.0 /100WBC Sodium 137 (136-145) mmol/L Potassium 3.7 (3.5-5.1) mmol/L Chloride 103 (98-107) mmol/L Carbon Dioxide 23 (22-29) mmol/L Anion Gap 14.7 (5-19) BUN 8 (6-20) mg/dL Creatinine 1.0 H (0.5-0.9) mg/dL GFR Calculation 58.2 L (90-130) mL/min Glucose 122 H (65-115) mg/dL Calculated Osmolal ity 281 L (285-295) mOsm/k g Calcium 8.9 (8.5-10.5) mg/dL Magnesium 2.1 (1.7-2.3) mg/dL Total Bilirubin 0.2 (0.15-1.2) mg/dL AST 12 (0-32) U/L ALT 9 (0-33) U/L Alkaline Phosphata se 137 H (35-105) IU/L Troponin T Gen 5 n g/L 6 (0-10) ng/L Total Protein 6.5 L (6.6-8.7) g/dL Albumin 3.6 (3.5-5.2) g/dL Globulin 2.9 (1.3-4.6) g/dL Lipase 32 (13-60) U/L Urine Color (Yellow) Urine Appearance (CLEAR) Urine pH (5-7) Ur Specific Gravit y (1.005-1.030) Urine Protein (Negative) Urine Glucose (UA) (Normal) Urine Ketones (Negative) Urine Blood (Negative) Urine Nitrate (Negative) Urine Bilirubin (Negative) Urine Urobilinogen (Negative) mg/dL Ur Leukocyte Stephanie ase (Negative) 02/28/20 Range/Units 20:35 WBC (4.0-10.0) 10^3/ uL RBC (4.1-5.3) 10^6/u L Hgb (11.5-15.3) g/dL Hct (37.0-47.0) % MCV (81-99) fL MCH (28.0-34.0) pg MCHC (30.0-36.0) g/dL RDW (12.1-15.1) % Plt Count (130-400) 10^3/c mm MPV (7.4-10.4) fL Neut % (Auto) % Lymph % (Auto) % [place] % (Auto) % Eos % (Auto) % Baso % (Auto) % Neut # (Auto) (1.8-7.7) 10^3/u L Lymph # (Auto) (0.8-4.8) 10^3/u L [place] # (Auto) (0.2-0.9) 10^3/u L Eos # (Auto) (0.0-0.8) 10^3/u L Baso # (Auto) (0.0-0.1) 10^3/u L Nucleated RBC % (a uto) % Nucleated RBCs # /100WBC Sodium (136-145) mmol/L Potassium (3.5-5.1) mmol/L Chloride (98-107) mmol/L Carbon Dioxide (22-29) mmol/L Anion Gap (5-19) BUN (6-20) mg/dL Creatinine (0.5-0.9) mg/dL GFR Calculation (90-130) mL/min Glucose (65-115) mg/dL Calculated Osmolal ity (285-295) mOsm/k g Calcium (8.5-10.5) mg/dL Magnesium (1.7-2.3) mg/dL Total Bilirubin (0.15-1.2) mg/dL AST (0-32) U/L ALT (0-33) U/L Alkaline Phosphata se (35-105) IU/L Troponin T Gen 5 n g/L (0-10) ng/L Total Protein (6.6-8.7) g/dL Albumin (3.5-5.2) g/dL Globulin (1.3-4.6) g/dL Lipase (13-60) U/L Urine Color Yellow (Yellow) Urine Appearance Clear (CLEAR) Urine pH 6 (5-7) Ur Specific Gravit y 1.015 (1.005-1.030) Urine Protein Neg (Negative) Urine Glucose (UA) Norm (Normal) Urine Ketones Negative (Negative) Urine Blood Neg (Negative) Urine Nitrate Negative (Negative) Urine Bilirubin Neg (Negative) Urine Urobilinogen Norm (Negative) mg/dL Ur Leukocyte Stephanie ase Negative (Negative) Imaging Data ^: CXR: Attestation: I personally reviewed and interpreted this imaging study as follows: My impression: No acute cardiopulmonary findings. CT Abd/Pel: Radiologist's impression: [place] [address] CT Scan Report Signed Patient: Latesha Wilhelm Unit #: [id number] : 1965 Age/Sex: 54 / F ADM Date: 02/28/20 Loc: ER Room/Bed: Attending Dr: Ordering Provider/Ordering MD: Ann Morgan DO Date of Service: 02/28/20 Procedure(s): CT abdomen pelvis w con* [id number] Accession Number(s): [id number] Report Number: [id number] PROCEDURE INFORMATION: Exam: CT Abdomen And Pelvis With Contrast Exam date and time: 02/28/2020 9:32 PM Age: 54 years old Clinical indication: Abdominal pain; Generalized; Prior surgery; Surgery type: Cholecystectomy, appendectomy, bladder TECHNIQUE: Imaging protocol: Computed tomography of the abdomen and pelvis with intravenous contrast. Radiation optimization: All CT scans at this facility use at least one of these dose optimization techniques: automated exposure control; mA and/or kV adjustment per patient size (includes targeted exams where dose is matched to clinical indication); or iterative reconstruction. Contrast material: OMNI 300; Contrast volume: 95 ml; Contrast route: INTRAVENOUS (IV); COMPARISON: CT abdomen pelvis w con* [id number] 12/06/2019 3:19 AM RADIATION DOSE METRICS: Total DLP (mGy-cm): 1170.04 FINDINGS: Lungs: Minimal patchy ground-glass airspace opacities may reflect an infectious process. Liver: Normal. No mass. Gallbladder and bile ducts: Cholecystectomy. Pancreas: Normal. No ductal dilation. Spleen: Normal. No splenomegaly. Adrenals: Normal. No mass. Kidneys and ureters: Normal. No hydronephrosis. Stomach and bowel: Constipation. Appendix: No evidence of appendicitis. Intraperitoneal space: Unremarkable. No free air. No significant fluid collection. Vasculature: Unremarkable. No abdominal aortic aneurysm. Lymph nodes: Unremarkable. No enlarged lymph nodes. Bladder: Unremarkable as visualized. Reproductive: Unremarkable as visualized. Bones/joints: Unremarkable. No acute fracture. Soft tissues: Unremarkable. CT/CT abdomen pelvis w con* [id number] IMPRESSION: 1. Negative for acute inflammatory process in the abdomen or pelvis 2. Minimal patchy ground-glass airspace opacities may reflect an infectious process. 3. Cholecystectomy. 4. Constipation. Radiation Dose CTDIVOL = (mGy): DLP = 1170.04 (mGy-cm) Dictated By: Benedicto Rangel MD Signed By: Benedicto Rangel MD Signed Date/Time: 02/28/202200 DD/ 00 EKG Data ^: EKG 1: Attestation: I personally reviewed and interpreted this EKG as follows: EKG interpretation date: 02/28/20 EKG interpretation time: 20:47 Interpretation: Normal sinus rhythm at 77 beats a minute, normal axis, no blocks, normal intervals, with atrial Adonay, no other acute ST-T wave changes. Discharge Plan Discharge Patient Disposition: Home Clinical Impression: Abdominal pain Qualifiers: Abdominal location: upper abdomen, unspecified Qualified Code(s): R10.10 - Upper abdominal pain, unspecified Condition: Stable Prescriptions: New Zofran 4 mg tablet 4 mg PO Q6H PRN (Reason: nausea and vomiting) Qty: 20 RF: 0 No Action loratadine 10 mg tablet 10 mg PO DAILY Qty: 90 RF: 0 hydrocodone-acetaminophen [Quinton] 5-325 mg tablet 1 tab PO Q6H PRN (Reason: Pain) RF: 0 Narcan 4 mg/actuation spray,non-aerosol 4 mg INTRANASAL Q2M PRN (Reason: OVERDOSE) RF: 0 ondansetron 4 mg tablet,disintegrating 4 mg PO Q6H PRN (Reason: Nausea) RF: 0 buspirone 10 mg tablet 10 mg PO TID Qty: 90 RF: 0 hydroxyzine pamoate 50 mg capsule 50 mg PO TID PRN (Reason: Anxiety) Qty: 90 RF: 0 lamotrigine 200 mg tablet 200 mg PO DAILY Qty: 30 RF: 0 quetiapine [Seroquel] 300 mg tablet 300 mg PO BEDTIME Qty: 30 RF: 0 trazodone 100 mg tablet 200 mg PO BEDTIME 30 Days Qty: 60 RF: 0 venlafaxine 75 mg capsule,extended release 24hr 75 mg PO BID Qty: 60 RF: 0 polyethylene glycol 3350 [Miralax] 17 gram/dose powder 17 gm PO DAILY PRN (Reason: constipation) RF: 0 aspirin 81 mg tablet,delayed release (DR/EC) 81 mg PO DAILY RF: 0 Ingrezza 80 mg capsule 80 mg PO DAILY 1 Days RF: 2 pantoprazole 40 mg tablet,delayed release (DR/EC) See Rx Instructions .ROUTE .COMPLEX Qty: 180 RF: 3 lorazepam 0.5 mg tablet 0.5 mg PO DAILY PRN (Reason: Anxiety) 30 Days Qty: 30 RF: 0 budesonide [Pulmicort] 0.5 mg/2 mL suspension for nebulization 0.5 mg INHALATION BID 30 Days Qty: 120 RF: 2 ipratropium-albuterol 0.5 mg-3 mg(2.5 mg base)/3 mL solution for nebulization See Rx Instructions .ROUTE .COMPLEX Qty: 1620 RF: 3 acetaminophen [Tylenol] 325 mg Tablet 325 - 650 mg PO QID PRN (Reason: Pain) RF: 0 promethazine [Promethegan] 25 mg suppository 25 mg KS Q12H PRN (Reason: Nausea And Vomiting) RF: 0 Discharge Orders: Discharge Order (Routine); Ordered 02/28/20 Ordered By: Ann Morgan Referrals: Dara Tavera FNP [Primary Care Provider] - 1-3 days Discharge Diet: Advance as tolerated Discharge Activity: Increase activity as tolerated Patient Instructions: Abdominal Pain (ED) Activity Restrictions/Additional Instructions: Please return to the ER immediately for any of the signs or symptoms listed on your discharge instruction sheets, worsening/changing of your symptoms, you are not getting better as quickly as expected, or for ANY other cause or concerns. Coding Level of Care Code ED Orthodontist for Chg Fwd Exam Comprehensive
[2020-02-28 20:25] LABS: Basophils # 0.1 10^3/uL (0.0-0.1); Basophils % 0.7 %; Eosinophils # 0.4 10^3/uL (0.0-0.8); Eosinophils % 2.2 %; Hematocrit 39.9 % (37.0-47.0); Hemoglobin 12.8 g/dL (11.5-15.3); Lymphocytes # 2.3 10^3/uL (0.8-4.8); Lymphocytes % 14.3 %; Mean Corpuscular HGB Conc 32.1 g/dL (30.0-36.0); Mean Corpuscular Volume 87.3 fL (81-99); Mean Platelet Volume 10.1 fL (7.4-10.4); Monocytes # 1.1 10^3/uL (0.2-0.9); Monocytes % 6.9 %; Neutrophils # 12.28 10^3/uL (1.8-7.7); Neutrophils % 75.3 %; Nucleated Red Blood Cells % 0 %; Platelet Count 249 10^3/cmm (130-400); Red Blood Count 4.57 10^6/uL (4.1-5.3); Red Cell Distribution Width 15.6 % (12.1-15.1); White Blood Count 16.3 10^3/uL (4.0-10.0)
[2020-02-28 20:43] LABS: Alanine Aminotransferase 9 U/L (0-33); Albumin Level 3.6 g/dL (3.5-5.2); Alkaline Phosphatase 137 IU/L (35-105); Anion Gap 14.7 (5-19); Aspartate Amino Transferase 12 U/L (0-32); Blood Urea Nitrogen 8 mg/dL (6-20); Calcium 8.9 mg/dL (8.5-10.5); Carbon Dioxide 23 mmol/L (22-29); Chloride 103 mmol/L (98-107); Globulin 2.9 g/dL (1.3-4.6); Glomerular Filtration Rate 58.2 mL/min (90-130); Glucose 122 mg/dL (65-115); Lipase 32 U/L (13-60); Magnesium 2.1 mg/dL (1.7-2.3); Osmolality Calculated 281 mOsm/kg (285-295); Potassium 3.7 mmol/L (3.5-5.1); Sodium 137 mmol/L (136-145); Total Bilirubin 0.2 mg/dL (0.15-1.2); Total Protein 6.5 g/dL (6.6-8.7)
[2020-02-28] MEDS: ondansetron 2 mg/ML SDV 2 mL 4 MG IVP (20:43)
[2020-02-28] MEDS: morphine 4 mg/mL SDV 1 mL IVP ×2 (20:43→21:57)
[2020-02-28] MEDS: sodium chloride 0.9% 1,000 ML 999 ML IV (20:44)
[2020-02-28 21:02] LABS: Add Urine Microscopic? NO
--- NOTE | 2020-02-28 21:02 | CTR_ITS ---
PROCEDURE INFORMATION: Exam: CT Abdomen And Pelvis With Contrast Exam date and time: 02/28/2020 9:32 PM Age: 54 years old Clinical indication: Abdominal pain; Generalized; Prior surgery; Surgery type: Cholecystectomy, appendectomy, bladder TECHNIQUE: Imaging protocol: Computed tomography of the abdomen and pelvis with intravenous contrast. Radiation optimization: All CT scans at this facility use at least one of these dose optimization techniques: automated exposure control; mA and/or kV adjustment per patient size (includes targeted exams where dose is matched to clinical indication); or iterative reconstruction. Contrast material: OMNI 300; Contrast volume: 95 ml; Contrast route: INTRAVENOUS (IV); COMPARISON: CT abdomen pelvis w con* [id number] 12/06/2019 3:19 AM RADIATION DOSE METRICS: Total DLP (mGy-cm): 1170.04 FINDINGS: Lungs: Minimal patchy ground-glass airspace opacities may reflect an infectious process. Liver: Normal. No mass. Gallbladder and bile ducts: Cholecystectomy. Pancreas: Normal. No ductal dilation. Spleen: Normal. No splenomegaly. Adrenals: Normal. No mass. Kidneys and ureters: Normal. No hydronephrosis. Stomach and bowel: Constipation. Appendix: No evidence of appendicitis. Intraperitoneal space: Unremarkable. No free air. No significant fluid collection. Vasculature: Unremarkable. No abdominal aortic aneurysm. Lymph nodes: Unremarkable. No enlarged lymph nodes. Bladder: Unremarkable as visualized. Reproductive: Unremarkable as visualized. Bones/joints: Unremarkable. No acute fracture. Soft tissues: Unremarkable. CT/CT abdomen pelvis w con* [id number] IMPRESSION: 1. Negative for acute inflammatory process in the abdomen or pelvis 2. Minimal patchy ground-glass airspace opacities may reflect an infectious process. 3. Cholecystectomy. 4. Constipation. Radiation Dose CTDIVOL = (mGy): DLP = 1170.04 (mGy-cm)
[2020-02-28 21:06] LABS: Bilirubin Urine Neg (Negative); Blood Urine Neg (Negative); Glucose Urine UA Norm (Normal); Ketones Urine Negative (Negative); Leukocyte Esterase Urine Negative (Negative); Nitrate Urine Negative (Negative); Protein Urine Neg (Negative); Specific Gravity, Urine 1.015 (1.005-1.030); Urine Appearance Clear (CLEAR); Urine Color Yellow (Yellow); Urobilinogen Urine Norm (Negative); pH Urine 6 (5-7)
[2020-02-28 22:10] LABS: Troponin T (5th) Once 6 ng/L (0-10)
[2020-02-28] MEDS: metoclopramide 5 mg/mL SDV 2 mL 10 MG IV (22:24)
[2020-02-28] MEDS: morphine 4 mg/mL SDV 1 mL 2 MG IVP (22:24)
== END 2020-02-28 22:46 | disposition home or self-care (01) ==
PROVIDERS: Emergency Provider Emergency Medicine; PCP Registered Nurse
DX: R10.10 Upper abdominal pain, unspecified (principal); Z79.82 Long term (current) use of aspirin; J44.9 Chronic obstructive pulmonary disease, unspecified; Z87.891 Personal history of nicotine dependence
CPT/HCPCS: 12345; 71045; 74177; 80053; 81003; 83690; 83735; 84484; 85025; 93005; 96361; 96374; 96375; 96376; 99283; 99284; J2270; J2405; J2765; J7030; Q9967

== ENCOUNTER 2020-03-02 17:04 | Inpatient (IN) | payer MEDICARE, MEDICAID, SELFPAY ==
[2020-03-02 17:05] VITALS: BP 132/83; PULSE 98; RESP 18; TEMP 36.9; O2SAT 97; BMI 33.3
--- NOTE | 2020-03-02 17:13 | W.ED.ABDPA2 ---
HPI - Abdominal Pain General: Chief Complaint: Abdominal Pain Stated Complaint: N/V/ABD PAIN Time Seen by Provider: 03/02/20 17:12 History of Present Illness: HPI narrative: 54-year-old female presents emergency room complaining of nausea and vomiting for the last 2 days she is scheduled for an EGD in 2 days she had a COVID screening today she is not really had any symptoms of screening was purely for surgical prescreening. She has been using Phenergan and Zofran at home with no relief of symptoms this is been a chronic problem and she has been being worked up for it. She says there concern is that she has esophageal spasms MD elicited complaint: abdominal pain Pertinent past history: other (Chronic abdominal pain nausea and vomiting) Onset (ago): week(s) Pain Consistency: constant and colicky Location: Epigastric Severity: severe Quality: cramping Radiation: none Migration to: no migration Exacerbating factors: eating Relieving factors: nothing Associated Symptoms: Reports GI cramping, loose stools, nausea, poor appetite and vomiting; Denies belching, bloating, chills, dyspepsia, fever(s), hematochezia, hematuria, hematemesis, fecal incontinence and melena Related Data: Date of Last Menstrual Period: 06/19/95 Review of Systems Const: Denies: fever(s), chills, body aches, change in appetite, fatigue or malaise ENMT: Denies: throat pain, ear or mastoid pain, nasal discharge or nasal congestion Card: Denies: chest pain, edema, dyspnea on exertion or orthopnea Resp: Denies: dyspnea, productive cough or non-productive cough GI: Reports: nausea, vomiting and GI cramping; Denies: hematemesis, bloating, belching, fecal incontinence, hematochezia or melena : Denies: hematuria Skin/Breast: Denies: rash or pruritus PFSH ED PFSH: Medical History (Updated 03/02/20 @ 21:50 by Frances Mello MD) Bladder stone Borderline personality disorder Chronic anxiety Chronic back pain greater than 3 months duration Chronic cystitis with hematuria Foreign body in bladder GERD without esophagitis Neurogenic bladder Nicotine dependence, cigarettes, with other nicotine-induced disorders Quit in 2019 Oxygen dependent Restrictive lung disease Schizoaffective disorder, bipolar type Urgency incontinence Surgical History H/O: hysterectomy History of appendectomy History of breast biopsy History of ureter stent Hx of cholecystectomy S/P bronchoscopy with biopsy Family History Other Asthma Cancer Diabetes Heart disease Social History Smoking and tobacco status: former smoker Quit status (tobacco): has quit using tobacco Year quit tobacco: 2019PD x 25 Years Alcohol intake: never Lives independently: Yes Household members: spouse Marital status: Number of children: 3 Current occupational status: disabled History of recent travel: No Current gender identity: Female Female Reproductive History: Date of last menstrual period: 06/19/95 Physical Exam Const: COMMON NORMALS: no acute distress GENERAL APPEARANCE: cooperative; not comfortable ORIENTATION/CONSCIOUSNESS: Yes awake, Yes oriented to person, Yes oriented to place and Yes oriented to time HENMT: COMMON NORMALS: normocephalic, atraumatic, hearing grossly normal bilaterally, external ears normal, EAC's normal, TM's normal bilaterally, Normal nasal mucous membranes and turbinates present, moist oral mucous membranes and oropharynx normal HEAD & SCALP: normocephalic and atraumatic NOSE: Normal nasal mucous membranes and turbinates present EXTERNAL EAR: Yes external ears normal EXTERNAL AUDITORY CANAL: EAC's normal TYMPANIC MEMBRANE: TM's normal bilaterally Eye: COMMON NORMALS: Equal, round and reactive pupils present, EOMs intact bilaterally, conjunctivae normal and no scleral icterus CONJUNCTIVA: Yes conjunctivae normal PUPIL: Yes Equal, round and reactive pupils present Neck/C-Spine: COMMON NORMALS: full ROM, no lymphadenopathy, supple and no JVD Lymph: LYMPHATIC: no lymphadenopathy noted and no lymphedema noted Resp: COMMON NORMALS: normal respiratory effort, No retractions, No use of accessory muscles and clear to auscultation bilaterally AUSCULTATION: clear to auscultation bilaterally Cardio: COMMON NORMALS: no JVD, regular rate, regular rhythm and No murmurs present (Cardio) RATE: regular rate RHYTHM: regular rhythm GI: COMMON NORMALS: Soft to palpation and No hepatosplenomegaly present AUSCULTATION: Yes normoactive bowel sounds PALPATION: Yes Soft to palpation, Yes Tenderness to palpation present (GI) (diffuse), No Guarding due to palpation present (GI) and Yes No hepatosplenomegaly present Extremity: COMMON NORMALS: normal to inspection, capillary refill normal, no clubbing, cyanosis or edema, no calf tenderness and no pedal edema Neuro: SENSORIUM/ORIENTATION: Yes oriented to person, Yes oriented to place and Yes oriented to time Skin: COMMON NORMALS: no rashes or lesions noted GENERAL SKIN EXAM: no rashes or lesions noted Course Vital Signs: Vital signs: Vital Signs Temperature 98.8 F 03/04/20 00:00 Pulse Rate 72 03/04/20 00:00 Respiratory Rate 14 03/04/20 05:57 Blood Pressure 125/76 03/04/20 00:00 Pulse Oximetry 98 03/04/20 00:00 MDM - Abdominal Pain MDM Narrative: Medical decision making narrative: Patient has persistent nausea and vomiting. Her laboratory studies are essentially normal but even in the ER she continues to complain of nausea and vomiting we will go ahead and place patient is and admit and consult Dr. Medley here with planning to do her EGD as an outpatient. Discussed Dr. Bernal he will see the patient. Lab Data: Labs: Lab Results 03/02/20 03/02/20 03/02/20 Range/Units 00:05 17:39 17:39 WBC 16.1 H (4.0-10.0) 10^3/ uL RBC 4.42 (4.1-5.3) 10^6/u L Hgb 12.3 (11.5-15.3) g/dL Hct 38.9 (37.0-47.0) % MCV 88.0 (81-99) fL MCH 27.8 L (28.0-34.0) pg MCHC 31.6 (30.0-36.0) g/dL RDW 15.9 H (12.1-15.1) % Plt Count 260 (130-400) 10^3/c mm MPV 9.8 (7.4-10.4) fL Neut % (Auto) 77.5 % Lymph % (Auto) 13.3 % [place] % (Auto) 6.4 % Eos % (Auto) 1.6 % Baso % (Auto) 0.6 % Neut # (Auto) 12.46 H (1.8-7.7) 10^3/u L Lymph # (Auto) 2.1 (0.8-4.8) 10^3/u L [place] # (Auto) 1.0 H (0.2-0.9) 10^3/u L Eos # (Auto) 0.3 (0.0-0.8) 10^3/u L Baso # (Auto) 0.1 (0.0-0.1) 10^3/u L Nucleated RBC % (a uto) 0 % Nucleated RBCs # 0.0 /100WBC Specimen Type Arterial Sample Site Radial, left ABG pH 7.33 L (7.35-7.45) ABG pCO2 42.0 (35-45) mmHg ABG pO2 61.7 L (80.0-100.0) mmH g ABG HCO3 22.2 (22-26) mmol/L ABG Base Excess -3.6 L (-2.0-2.0) mmol/ L Juan Test Pos Hematocrit 37.9 (37-47) % O2 Delivery Device Nc O2 Liters/Min 2.0 % Director Financial Analysis ID ellpe Sodium (136-145) mmol/L Potassium (3.5-5.1) mmol/L Chloride (98-107) mmol/L Carbon Dioxide (22-29) mmol/L Anion Gap (5-19) BUN (6-20) mg/dL Creatinine (0.5-0.9) mg/dL GFR Calculation (90-130) mL/min Glucose (65-115) mg/dL Calculated Osmolal ity (285-295) mOsm/k g Lactic Acid 1.0 (0.5-2.2) mmol/L Calcium (8.5-10.5) mg/dL Total Bilirubin (0.15-1.2) mg/dL AST (0-32) U/L ALT (0-33) U/L Alkaline Phosphata se (35-105) IU/L Total Protein (6.6-8.7) g/dL Albumin (3.5-5.2) g/dL Globulin (1.3-4.6) g/dL Lipase (13-60) U/L Urine Color (Yellow) Urine Appearance (CLEAR) Urine pH (5-7) Ur Specific Gravit y (1.005-1.030) Urine Protein (Negative) Urine Glucose (UA) (Normal) Urine Ketones (Negative) Urine Blood (Negative) Urine Nitrate (Negative) Urine Bilirubin (Negative) Urine Urobilinogen (Negative) mg/dL Ur Leukocyte Stephanie ase (Negative) Serum Ketones (Negative) SARS-CoV-2 Ag (Rap id) (Negative) 03/02/20 03/02/20 03/02/20 Range/Units 17:39 17:53 19:45 WBC (4.0-10.0) 10^3/ uL RBC (4.1-5.3) 10^6/u L Hgb (11.5-15.3) g/dL Hct (37.0-47.0) % MCV (81-99) fL MCH (28.0-34.0) pg MCHC (30.0-36.0) g/dL RDW (12.1-15.1) % Plt Count (130-400) 10^3/c mm MPV (7.4-10.4) fL Neut % (Auto) % Lymph % (Auto) % [place] % (Auto) % Eos % (Auto) % Baso % (Auto) % Neut # (Auto) (1.8-7.7) 10^3/u L Lymph # (Auto) (0.8-4.8) 10^3/u L [place] # (Auto) (0.2-0.9) 10^3/u L Eos # (Auto) (0.0-0.8) 10^3/u L Baso # (Auto) (0.0-0.1) 10^3/u L Nucleated RBC % (a uto) % Nucleated RBCs # /100WBC Specimen Type Sample Site ABG pH (7.35-7.45) ABG pCO2 (35-45) mmHg ABG pO2 (80.0-100.0) mmH g ABG HCO3 (22-26) mmol/L ABG Base Excess (-2.0-2.0) mmol/ L Juan Test Hematocrit (37-47) % O2 Delivery Device O2 Liters/Min % Director Financial Analysis ID Sodium 137 (136-145) mmol/L Potassium 4.1 (3.5-5.1) mmol/L Chloride 104 (98-107) mmol/L Carbon Dioxide 21 L (22-29) mmol/L Anion Gap 16.1 (5-19) BUN 10 (6-20) mg/dL Creatinine 1.0 H (0.5-0.9) mg/dL GFR Calculation 58.2 L (90-130) mL/min Glucose 112 (65-115) mg/dL Calculated Osmolal ity 281 L (285-295) mOsm/k g Lactic Acid (0.5-2.2) mmol/L Calcium 9.0 (8.5-10.5) mg/dL Total Bilirubin 0.2 (0.15-1.2) mg/dL AST 11 (0-32) U/L ALT 8 (0-33) U/L Alkaline Phosphata se 128 H (35-105) IU/L Total Protein 6.0 L (6.6-8.7) g/dL Albumin 3.7 (3.5-5.2) g/dL Globulin 2.3 (1.3-4.6) g/dL Lipase 33 (13-60) U/L Urine Color Yellow (Yellow) Urine Appearance Clear (CLEAR) Urine pH 5 (5-7) Ur Specific Gravit y 1.010 (1.005-1.030) Urine Protein Neg (Negative) Urine Glucose (UA) Norm (Normal) Urine Ketones Negative (Negative) Urine Blood Neg (Negative) Urine Nitrate Negative (Negative) Urine Bilirubin Neg (Negative) Urine Urobilinogen Norm (Negative) mg/dL Ur Leukocyte Stephanie ase Negative (Negative) Serum Ketones Negative (Negative) SARS-CoV-2 Ag (Rap id) Negative (Negative) 03/03/20 03/03/20 Range/Units 04:08 04:08 WBC 9.6 (4.0-10.0) 10^3/ uL RBC 4.72 (4.1-5.3) 10^6/u L Hgb 13.0 (11.5-15.3) g/dL Hct 41.8 (37.0-47.0) % MCV 88.6 (81-99) fL MCH 27.5 L (28.0-34.0) pg MCHC 31.1 (30.0-36.0) g/dL RDW 15.8 H (12.1-15.1) % Plt Count 283 (130-400) 10^3/c mm MPV 10.6 H (7.4-10.4) fL Neut % (Auto) 88.3 % Lymph % (Auto) 9.6 % [place] % (Auto) 0.8 % Eos % (Auto) 0.1 % Baso % (Auto) 0.5 % Neut # (Auto) 8.46 H (1.8-7.7) 10^3/u L Lymph # (Auto) 0.9 (0.8-4.8) 10^3/u L [place] # (Auto) 0.1 L (0.2-0.9) 10^3/u L Eos # (Auto) 0.0 (0.0-0.8) 10^3/u L Baso # (Auto) 0.1 (0.0-0.1) 10^3/u L Nucleated RBC % (a uto) 0 % Nucleated RBCs # 0.0 /100WBC Specimen Type Sample Site ABG pH (7.35-7.45) ABG pCO2 (35-45) mmHg ABG pO2 (80.0-100.0) mmH g ABG HCO3 (22-26) mmol/L ABG Base Excess (-2.0-2.0) mmol/ L Juan Test Hematocrit (37-47) % O2 Delivery Device O2 Liters/Min % Director Financial Analysis ID Sodium 138 (136-145) mmol/L Potassium 4.5 (3.5-5.1) mmol/L Chloride 106 (98-107) mmol/L Carbon Dioxide 20 L (22-29) mmol/L Anion Gap 16.5 (5-19) BUN 9 (6-20) mg/dL Creatinine 0.8 (0.5-0.9) mg/dL GFR Calculation 75.3 L (90-130) mL/min Glucose 146 H (65-115) mg/dL Calculated Osmolal ity 285 (285-295) mOsm/k g Lactic Acid (0.5-2.2) mmol/L Calcium 9.2 (8.5-10.5) mg/dL Total Bilirubin 0.2 (0.15-1.2) mg/dL AST 12 (0-32) U/L ALT 9 (0-33) U/L Alkaline Phosphata se 141 H (35-105) IU/L Total Protein 6.9 (6.6-8.7) g/dL Albumin 3.9 (3.5-5.2) g/dL Globulin 3.0 (1.3-4.6) g/dL Lipase (13-60) U/L Urine Color (Yellow) Urine Appearance (CLEAR) Urine pH (5-7) Ur Specific Gravit y (1.005-1.030) Urine Protein (Negative) Urine Glucose (UA) (Normal) Urine Ketones (Negative) Urine Blood (Negative) Urine Nitrate (Negative) Urine Bilirubin (Negative) Urine Urobilinogen (Negative) mg/dL Ur Leukocyte Stephanie ase (Negative) Serum Ketones (Negative) SARS-CoV-2 Ag (Rap id) (Negative) Discharge Plan Discharge Patient Disposition: Admitted As Inpatient Admit Provider: Brant Bernal Discharge Date/Time: 03/02/20 20:49 Coding Level of Care Code ED 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
[2020-03-02 17:55] LABS: Basophils # 0.1 10^3/uL (0.0-0.1); Basophils % 0.6 %; Eosinophils # 0.3 10^3/uL (0.0-0.8); Eosinophils % 1.6 %; Hematocrit 38.9 % (37.0-47.0); Hemoglobin 12.3 g/dL (11.5-15.3); Lymphocytes # 2.1 10^3/uL (0.8-4.8); Lymphocytes % 13.3 %; Mean Corpuscular HGB Conc 31.6 g/dL (30.0-36.0); Mean Corpuscular Hemoglobin 27.8 pg (28.0-34.0); Mean Platelet Volume 9.8 fL (7.4-10.4); Monocytes % 6.4 %; Neutrophils # 12.46 10^3/uL (1.8-7.7); Neutrophils % 77.5 %; Nucleated Red Blood Cells % 0 %; Platelet Count 260 10^3/cmm (130-400); Red Blood Count 4.42 10^6/uL (4.1-5.3); Red Cell Distribution Width 15.9 % (12.1-15.1); White Blood Count 16.1 10^3/uL (4.0-10.0)
[2020-03-02] MEDS: sodium chloride 0.9% 1,000 ML 999 ML IV (17:58)
[2020-03-02 18:04] LABS: Add Urine Microscopic? NO
[2020-03-02 18:12] LABS: Bilirubin Urine Neg (Negative); Blood Urine Neg (Negative); Glucose Urine UA Norm (Normal); Ketones Urine Negative (Negative); Leukocyte Esterase Urine Negative (Negative); Nitrate Urine Negative (Negative); Protein Urine Neg (Negative); Urine Appearance Clear (CLEAR); Urine Color Yellow (Yellow); Urobilinogen Urine Norm (Negative); pH Urine 5 (5-7)
[2020-03-02 18:16] LABS: Ketone (Acetest) Serum Negative (Negative)
[2020-03-02 18:26] LABS: Alanine Aminotransferase 8 U/L (0-33); Albumin Level 3.7 g/dL (3.5-5.2); Alkaline Phosphatase 128 IU/L (35-105); Anion Gap 16.1 (5-19); Aspartate Amino Transferase 11 U/L (0-32); Blood Urea Nitrogen 10 mg/dL (6-20); Carbon Dioxide 21 mmol/L (22-29); Chloride 104 mmol/L (98-107); Globulin 2.3 g/dL (1.3-4.6); Glomerular Filtration Rate 58.2 mL/min (90-130); Glucose 112 mg/dL (65-115); Lipase 33 U/L (13-60); Osmolality Calculated 281 mOsm/kg (285-295); Potassium 4.1 mmol/L (3.5-5.1); Sodium 137 mmol/L (136-145); Total Bilirubin 0.2 mg/dL (0.15-1.2)
--- NOTE | 2020-03-02 19:21 | PM.HP ---
Providers/Chief Complaint Primary Care Provider: AMANDEEP Barclay Chief Complaint: N/V/ABD PAIN History of Present Illness Latesha Wilhelm is a 54 year old female who carries history of restrictive lung disease, chronic back pain, GERD, dyspnea on exertion, came in today for chief complaint of intractable nausea vomiting. Patient was scheduled for an EGD on 03/[address] Linn. A recent barium swallow revealed tertiary esophageal contraction without any signs of aspiration. Pulmonary function test reveals restrictive lung disease. On review of previous CT scan she has had bilateral groundglass opacities. COVID antigen test negative in the past, she was referred to Dr. Bray for evaluation of bilateral groundglass opacities. Patient is stating that he started experiencing recurrent nausea and vomiting about 24 hours ago, before that she was able to swallow liquid with some solid food. She has had 10-15 episodes of emesis. She is experiencing epigastric cramps associated with colicky pain. She also experienced 5-6 episodes of loose stools. She is denying fever, blood in stool. She has been using 2 L of oxygen [id number]. She is endorsing hot flashes without weight loss or night sweats. Diagnosis in the ER revealed hemoconcentration, leukocytosis, hemoglobin 12, creatinine at baseline, lactic acid 1, glucose 112. Her CT chest and abdomen revealed groundglass opacities which are old findings, she has been tested for COVID antigen multiple times, CT abdomen done on 02/23 revealed groundglass opacities again. Dr. Bray has not plan for bronchoscopy at this point. Patient is denying exposure to cold with suspects. No recent fever however she has chronic dyspnea. ER physician has updated Dr. Medley.. CT scan on 02/27 reviewed. Review of Systems Const: Denies: fever(s), chills or body aches Eyes: Denies: change in vision ENMT: Reports: odynophagia; Denies: throat pain Card: Reports: dyspnea on exertion; Denies: chest pain Resp: Reports: dyspnea and non-productive cough GI: Reports: abdominal pain, nausea, vomiting and diarrhea : Denies: flank pain Musc: Denies: neck pain Skin/Breast: Denies: rash Neuro: Denies: headache(s) Psych: Reports: anxiety Endo: Denies: polyuria Wilbur/Lymph: Denies: easy bruising All/Imm: Denies: urticaria Medications/Allergies Home Medications Medication Instructions Recorded Confirmed Last Taken Type polyethylene glycol 3350 17 17 gm PO DAILY PRN gm 06/13/19 03/02/20 02/13/20 History gram/dose oral powder promethazine [Promethegan] 25 mg DE Q12H PRN 09/07/19 03/02/20 03/02/20 History aspirin 81 mg tablet,delayed 81 mg PO DAILY 11/28/19 03/02/20 02/29/20 History release valbenazine 80 mg capsule 80 mg PO DAILY 1 Days cap 12/30/19 03/02/20 03/02/20 Rx lorazepam 0.5 mg tablet 0.5 mg PO DAILY PRN 30 Days #30 tab 02/12/20 03/02/20 03/02/20 Rx acetaminophen [Tylenol] 325 - 650 mg PO QID PRN 02/13/20 03/02/20 02/13/20 History buspirone 10 mg tablet 10 mg PO TID #90 tab 02/17/20 03/02/20 03/02/20 Rx hydroxyzine pamoate 50 mg capsule 50 mg PO TID PRN #90 cap 02/17/20 03/02/20 03/02/20 Rx lamotrigine 200 mg tablet 200 mg PO DAILY #30 tab 02/17/20 03/02/20 03/02/20 Rx quetiapine 300 mg tablet 300 mg PO BEDTIME #30 tab 02/17/20 03/02/20 03/01/20 Rx trazodone 100 mg tablet 200 mg PO BEDTIME 30 Days #60 tab 02/17/20 03/02/20 03/01/20 Rx venlafaxine 75 mg capsule,extended 75 mg PO BID #60 cap 02/17/20 03/02/20 03/02/20 Rx release 24 hr hydrocodone 5 mg-acetaminophen 325 1 tab PO Q6H PRN 02/20/20 03/02/20 03/02/20 History mg tablet naloxone 4 mg/actuation nasal spray 4 mg INTRANASAL Q2M PRN 02/20/20 03/02/20 Unknown History ondansetron 4 mg disintegrating 4 mg PO Q6H PRN 02/20/20 03/02/20 03/02/20 History tablet budesonide 0.5 mg/2 mL suspension 0.5 mg INHALATION BID 30 Days #120 02/25/20 03/02/20 03/02/20 Rx for nebulization ml ipratropium 0.5 mg-albuterol 3 mg See Rx Instructions .ROUTE 02/26/20 03/02/20 03/02/20 Rx (2.5 mg base)/3 mL nebulization .COMPLEX #1620 ml soln pantoprazole 40 mg PO BID 03/02/20 03/02/20 03/02/20 History Allergies Allergy/AdvReac Type Severity Reaction Status Date / Time Penicillins Allergy Severe ALGY-Anaphy Verified 03/02/20 12:27 laxis sulfamethoxazole Allergy Severe ALGY-Hives Verified 03/02/20 12:27 [From Bactrim] Tetracyclines Allergy Severe ALGY-Hives Verified 03/02/20 12:27 gabapentin [From Neurontin] Allergy Intermediate ADR-Halluci Verified 03/02/20 12:27 nating ketorolac [From Toradol] Allergy Intermediate ALGY-Rash Verified 03/02/20 12:27 lithium Allergy Intermediate ADR-Halluci Verified 03/02/20 12:27 nating fentanyl Allergy Mild rash Verified 03/02/20 12:27 adhesive tape Allergy Rash Verified 03/02/20 12:27 codeine Allergy GI Verified 03/02/20 12:27 haloperidol [From Haldol] Allergy unknown Verified 03/02/20 12:27 quetiapine [From Seroquel] Allergy Unknown Verified 03/02/20 12:27 trimethoprim [From Bactrim] Allergy ALGY-Hives Verified 03/02/20 12:27 ziprasidone [From Geodon] AdvReac Severe ADR-Halluci Verified 03/02/20 12:27 nating influenza virus vac qs AdvReac Mild ADR-Nausea Verified 03/02/20 12:27 19-20(4 yr up) cell derived [From Flucelvax Quad 2033-3911 (PF)] risperidone [From Risperdal] AdvReac ADR-Halluci Verified 03/02/20 12:27 nating PFSH Acute PFSH: Medical History Bladder stone Borderline personality disorder Chronic anxiety Chronic back pain greater than 3 months duration Chronic cystitis with hematuria COPD (chronic obstructive pulmonary disease) Foreign body in bladder GERD without esophagitis Neurogenic bladder Nicotine dependence, cigarettes, with other nicotine-induced disorders Quit in 2019 Oxygen dependent Schizoaffective disorder, bipolar type Urgency incontinence Surgical History H/O: hysterectomy History of appendectomy History of breast biopsy History of ureter stent Hx of cholecystectomy S/P bronchoscopy with biopsy Family History Other Asthma Cancer Diabetes Heart disease Social History Smoking and tobacco status: former smoker Quit status (tobacco): has quit using tobacco Year quit tobacco: 2019 - 1PPD x 25 Years Alcohol intake: never Lives independently: Yes Household members: spouse Marital status: Number of children: 3 Current occupational status: disabled History of recent travel: No Current gender identity: Female Female Reproductive History: Date of last menstrual period: 06/19/95 Vitals/I&O/Wt Last Vital Signs Temp 98.4 F 03/02/20 17:05 Pulse 98 03/02/20 17:05 Resp 18 03/02/20 17:05 BP 132/83 03/02/20 17:05 Pulse Ox 97 03/02/20 17:05 Weight last 48 hrs Weight 90.718 kg Physical Exam Narrative: EXAM NARRATIVE: Pleasant female Currently laying comfortably in her bed Saturating well on 2 L nasal cannula Normal hemodynamics S1, S2 no tachycardia heart failure Abdomen soft, mild tenderness on palpation around mid epigastric region and left upper quadrant, Active wheezing however no active respiratory distress No lower extremity edema gangrene ulcer Appropriate mood and affect EOMI, PERRLA No neurological deficit Data : 03/02/20 17:39 03/02/20 17:39 A&P Assessment and plan (1) Intractable nausea and vomiting: Status: Acute (2) Abdominal pain: Status: Acute Qualifiers: Abdominal location: upper abdomen, unspecified Qualified Code(s): R10.10 - Upper abdominal pain, unspecified (3) Acute exacerbation of chronic obstructive airways disease: Status: Acute (4) Infiltrate of lung present on imaging of chest: Status: Acute Additional A&P Information Intractable nausea vomiting Recent barium swallow showed esophageal spasm, recent CT abdomen/pelvis done on 02/27 I would not repeat at this point No previous history of H. pylori, No constitutional signs She was supposed to get EGD on 03/[address] Linn, he has been updated by the ER physician I will keep her n.p.o. Protonix 40 IV daily IV fluid maintenance rate Antiemetic and analgesia Bilateral groundglass opacities These are chronic findings present on CT chest No recent fever, myalgias Dr. Bray deferred bronchoscopy for now Pulmonary function test revealed restrictive lung disease He also recommended weaning of oxygen as her blood gas revealed hyperoxygenation Active wheezing with underlying restrictive lung disease I will get blood gas because of her active wheezing COVID antigen has been ordered, previous COVID antigen negative x3 Wean off oxygen Sputum positive for pneumocystis DVT prophylaxis: SCDs I would avoid anticoagulation in case she goes for an EGD in the morning however considering the no of COVID positive patients this might be delayed, will follow up with general surgery in the morning N.p.o. Full code Attestations Medical Necessity Statement*: This patient needs an EGD for intractable nausea vomiting however considering the number of covid patients, her EGD might get deferred by general surgery, general surgeon's recommendations will change her length of stay. For now I am anticipating she might get Discharged in less than 48 hours Time Spent in Patient Care: (>than 50% of time spent in counselling and/or direct pt care on unit). 45mins Coding Level of Care Code Acute Heel Seat Pounder for [facility] Fwd Diagnoses Intractable nausea and vomiting R11.2 Abdominal pain R10.10 Abdominal location: upper abdomen, unspecified Acute exacerbation of chronic obstructive airways disease J44.1 Infiltrate of lung present on imaging of chest R91.8
[2020-03-02 20:04] VITALS: BP 154/77; PULSE 78; RESP 20; O2SAT 95
[2020-03-02 20:48] VITALS: BP 138/78; PULSE 84; RESP 16; O2SAT 98
[2020-03-02 21:12] VITALS: BP 100/61; PULSE 77; RESP 22; TEMP 36.7; O2SAT 98
[2020-03-02 21:55] VITALS: RESP 18
[2020-03-02] MEDS: HYDROmorphone 1 mg/mL INJ 1 mL 2 MG IVP (21:55)
[2020-03-02 22:04] LABS: SARS Covid-2 Antigen Negative (Negative)
[2020-03-02] MEDS: dextrose 5%-sod chloride 0.45% 1,000 ML 75 ML IV (22:08)
[2020-03-02] MEDS: ondansetron 2 mg/ML SDV 2 mL 4 MG IVP (23:22)
[2020-03-03] VITALS (10 sets, daily range): BP systolic 105–129; BP diastolic 60–77; PULSE 59–86; RESP 16–20; TEMP 36.4–37.1; O2SAT 93–99
[2020-03-03 00:12] LABS: ABG PH Result 7.33 (7.35-7.45); Arterial Blood Gas Hematocrit 37.9 % (37-47); Base Excess ABG -3.6 mmol/L (-2.0-2.0); Blood Gas Allen Test Pos; Blood Gas Sample Site Radial, left; Blood Gas Sample Type Arterial; HCO3 ABG 22.2 mmol/L (22-26); Oxygen Device NC; PO2 ABG 61.7 mmHg (80.0-100.0)
[2020-03-03] MEDS: ondansetron 2 mg/ML SDV 2 mL 4 MG IVP ×2 (05:02→20:27)
[2020-03-03] MEDS: HYDROmorphone 1 mg/mL INJ 1 mL 2 MG IVP ×3 (05:03→17:51)
[2020-03-03 05:27] LABS: Basophils # 0.1 10^3/uL (0.0-0.1); Basophils % 0.5 %; Eosinophils % 0.1 %; Hematocrit 41.8 % (37.0-47.0); Lymphocytes # 0.9 10^3/uL (0.8-4.8); Lymphocytes % 9.6 %; Mean Corpuscular HGB Conc 31.1 g/dL (30.0-36.0); Mean Corpuscular Hemoglobin 27.5 pg (28.0-34.0); Mean Corpuscular Volume 88.6 fL (81-99); Mean Platelet Volume 10.6 fL (7.4-10.4); Monocytes # 0.1 10^3/uL (0.2-0.9); Monocytes % 0.8 %; Neutrophils # 8.46 10^3/uL (1.8-7.7); Neutrophils % 88.3 %; Nucleated Red Blood Cells % 0 %; Platelet Count 283 10^3/cmm (130-400); Red Blood Count 4.72 10^6/uL (4.1-5.3); Red Cell Distribution Width 15.8 % (12.1-15.1); White Blood Count 9.6 10^3/uL (4.0-10.0)
[2020-03-03 05:51] LABS: Alanine Aminotransferase 9 U/L (0-33); Albumin Level 3.9 g/dL (3.5-5.2); Alkaline Phosphatase 141 IU/L (35-105); Anion Gap 16.5 (5-19); Aspartate Amino Transferase 12 U/L (0-32); Blood Urea Nitrogen 9 mg/dL (6-20); Calcium 9.2 mg/dL (8.5-10.5); Carbon Dioxide 20 mmol/L (22-29); Chloride 106 mmol/L (98-107); Glomerular Filtration Rate 75.3 mL/min (90-130); Glucose 146 mg/dL (65-115); Osmolality Calculated 285 mOsm/kg (285-295); Potassium 4.5 mmol/L (3.5-5.1); Sodium 138 mmol/L (136-145); Total Bilirubin 0.2 mg/dL (0.15-1.2); Total Protein 6.9 g/dL (6.6-8.7)
--- NOTE | 2020-03-03 06:13 | P.PN_ITS ---
Subjective Subjective: Interval history: Patient complains of repeated nausea and vomiting Just recently seen in my office with the plan to perform a diagnostic EGD parchment yesterday with worsening nausea and vomiting and undergone images that showed; 1. Negative for acute inflammatory process in the abdomen or pelvis 2. Minimal patchy ground-glass airspace opacities may reflect an infectious process. 3. Cholecystectomy. 4. Constipation. A modified barium swallow that was requested 02/21/2020 showed; Impression: 1. Normal hypopharyngeal pharyngeal propulsion. 2. Tertiary contractions of the esophagus. General surgery was consulted for potential diagnostic EGD which is already scheduled for 04 March 2020 Vitals/I&O/Wt Last Vital Signs Temp 97.5 F L 03/03/20 04:00 Pulse 78 03/03/20 04:00 Resp 18 03/03/20 05:03 BP 105/73 03/03/20 04:00 Pulse Ox 96 03/03/20 04:00 03/02/20 03/02/20 03/03/20 14:59 22:59 06:59 Output Total 760 / 760 Balance -760 / -760 Weight last 48 hrs Weight 200 lb Physical Exam Narrative: EXAM NARRATIVE: Patient is conscious alert oriented X3 BMI 33 Head and neck examination PERRLA no masses no cervical lymphadenopathy no jaundice Cardiac examination audible S1-S2 no murmurs no gallops no arrhythmias Chest is clear bilateral,abscence of Rhonchi or wheezes,no surgical emphysema Abdomen mildly tender nondistended soft no organomegaly guarding or rigidity/no signs of peritonitis Data : 03/03/20 04:08 03/03/20 04:08 A&P Assessment and plan (1) Intractable nausea and vomiting: We will plan to perform diagnostic EGD with possible biopsy once cleared by medical team Assurance and education All questions have been answered and all concerns have been addressed to patient's satisfaction. Status: Acute Attestations Medical Necessity Statement*: Per hospitalist service Time Spent in Patient Care: (>than 50% of time spent in counselling and/or direct pt care on unit) . Coding Level of Care Code Acute Cage Unloader for [facility] Fwd Diagnoses Intractable nausea and vomiting R11.2
[2020-03-03] MEDS: pantoprazole 40 mg SDV IVP (09:35)
--- NOTE | 2020-03-03 09:44 | P.PN_ITS ---
Subjective Subjective: Interval history: Patient was seen at the bedside today in morning.Her nausea and vomitting has subsided.Vitals and labs have been reviewed.As per our communication with Dr Medley she will be taken to for EGD in the morning.She has been allowed clear liquids for now. No other acute events. Medications: Reviewed: Yes Vitals/I&O/Wt Last Vital Signs Temp 97.9 F 03/03/20 07:40 Pulse 75 03/03/20 09:16 Resp 18 03/03/20 07:40 BP 129/61 03/03/20 07:40 Pulse Ox 97 03/03/20 09:16 03/02/20 03/03/20 03/03/20 22:59 06:59 14:59 Output Total 760 / 760 Balance -760 / -760 Weight last 48 hrs Weight 90.718 kg Physical Exam Const: COMMON NORMALS: patient oriented x3 HENMT: COMMON NORMALS: normocephalic, atraumatic, hearing grossly normal bilaterally and external ears normal HEAD & SCALP: normocephalic and atraumatic EXTERNAL EAR: Yes external ears normal Eye: COMMON NORMALS: no scleral icterus GENERAL EYE: appearance normal, both eyes and all related structures Chest: COMMONS NORMALS: normal inspection of the chest and normal palpation of entire chest wall CHEST: Yes Symmetrical chest wall rise Resp: COMMON NORMALS: normal respiratory effort, No retractions, No use of accessory muscles and clear to auscultation bilaterally EFFORT & INSPECTION: Yes symmetric chest movement AUSCULTATION: clear to auscultation bilaterally Cardio: COMMON NORMALS: regular rate, regular rhythm, S1 normal heart sound present, S2 normal heart sound present, No gallops present (Cardio), No murmurs present (Cardio), No rub (Cardio) and Peripheral pulses 2+ throughout RATE: regular rate RHYTHM: regular rhythm HEART SOUNDS: S1 normal heart sound present and S2 normal heart sound present PERIPHERAL PULSES: Peripheral pulses 2+ throughout GI: PALPATION: Yes Other GI palpation findings present (Genralized abdominal tenderness present without guarding,rigidity or reboun) RECTAL EXAM: deferred Extremity: COMMON NORMALS: no clubbing, cyanosis or edema and no pedal edema Neuro: COMMON NORMALS: patient oriented x3 Data : 03/03/20 04:08 03/03/20 04:08 A&P Assessment and plan (1) Intractable nausea and vomiting: Status: Acute (2) Abdominal pain: Status: Acute Qualifiers: Abdominal location: upper abdomen, unspecified Qualified Code(s): R10.10 - Upper abdominal pain, unspecified (3) Acute exacerbation of chronic obstructive airways disease: Status: Acute (4) Infiltrate of lung present on imaging of chest: Status: Acute Additional A&P Information Intractable nausea vomiting Recent barium swallow showed esophageal spasm, recent CT abdomen/pelvis done on 02/27 I would not repeat at this point No previous history of H. pylori, No constitutional signs She was supposed to get EGD on 03/[address] Linn, he has been updated by the ER physician I will keep her n.p.o. Protonix 40 IV daily IV fluid maintenance rate Antiemetic and analgesia Bilateral groundglass opacities These are chronic findings present on CT chest No recent fever, myalgias Dr. Bray deferred bronchoscopy for now Pulmonary function test revealed restrictive lung disease He also recommended weaning of oxygen as her blood gas revealed hyperoxygenation Active wheezing with underlying restrictive lung disease I will get blood gas because of her active wheezing COVID antigen has been ordered, previous COVID antigen negative x3 Wean off oxygen Sputum positive for pneumocystis DVT prophylaxis: SCDs I would avoid anticoagulation in case she goes for an EGD in the morning however considering the no of COVID positive patients this might be delayed, will follow up with general surgery in the morning N.p.o. Full code Attestations Medical Necessity Statement*: Patient needs to be in hospital for the management of intractable , nausea and vomitting as well for EGD. Coding Level of Care Code Acute Concaving Machine Operator for [facility] Fwd Diagnoses Intractable nausea and vomiting R11.2 Abdominal pain R10.10 Abdominal location: upper abdomen, unspecified Acute exacerbation of chronic obstructive airways disease J44.1 Infiltrate of lung present on imaging of chest R91.8
[2020-03-03] MEDS: dextrose 5%-sod chloride 0.45% 1,000 ML 75 ML IV (11:30)
[2020-03-03] MEDS: metoclopramide 5 mg/mL SDV 2 mL IVP (12:21)
[2020-03-04] VITALS (18 sets, daily range): BP systolic 95–133; BP diastolic 60–85; PULSE 55–72; RESP 14–22; TEMP 36.4–37.4; O2SAT 96–100
[2020-03-04] MEDS: HYDROmorphone 1 mg/mL INJ 1 mL 2 MG IVP ×2 (00:04→05:57)
[2020-03-04] MEDS: dextrose 5%-sod chloride 0.45% 1,000 ML 75 ML IV ×2 (02:25→15:13)
--- NOTE | 2020-03-04 06:09 | PM.PN ---
Subjective Subjective: Interval history: Patient continues to have nausea and vomiting. Patient was by Dr. Bernal for endoscopy today Vitals/I&O/Wt Last Vital Signs Temp 98.8 F 03/04/20 00:00 Pulse 72 03/04/20 00:00 Resp 14 03/04/20 05:57 BP 125/76 03/04/20 00:00 Pulse Ox 98 03/04/20 00:00 03/03/20 03/03/20 03/04/20 14:59 22:59 06:59 Intake Total 1000 / 1000 480 / 1480 1000.00 / 2480.00 Output Total 500 / 500 450 / 950 600 / 1550 Balance 500 / 500 30 / 530 400.00 / 930.00 Weight last 48 hrs Weight 200 lb Physical Exam Narrative: EXAM NARRATIVE: Patient is conscious alert oriented X3 BMI 33 Head and neck examination PERRLA no masses no cervical lymphadenopathy no jaundice Abdomen mildly tender nondistended soft no organomegaly guarding or rigidity/no signs of peritonitis Data : 03/03/20 04:08 03/03/20 04:08 A&P Assessment and plan (1) Intractable nausea and vomiting: We will plan to perform diagnostic EGD with possible biopsy today Assurance and education All questions have been answered and all concerns have been addressed to patient's satisfaction. Status: Acute Attestations Medical Necessity Statement*: Per hospitalist service Time Spent in Patient Care: (>than 50% of time spent in counselling and/or direct pt care on unit). Coding Level of Care Code Acute Traveling Repair Accountant for [facility] Fwd Diagnoses Intractable nausea and vomiting R11.2
[2020-03-04] MEDS: ondansetron 2 mg/ML SDV 2 mL 4 MG IVP ×2 (06:30→17:49)
--- NOTE | 2020-03-04 08:28 | PC.NURSE ---
Patient taken to GI lab for EGD
[2020-03-04] MEDS: sodium chloride 0.9% 1,000 ML 30 ML IV (08:48)
--- NOTE | 2020-03-04 08:50 | P.ANESASSM_ITS ---
Pre-Anesthetic Assessment Pre-Anesthetic Assessment: Height/Weight: Height 1.65 m Weight 90.718 kg Temp Pulse Resp BP Pulse Ox 98 F 57 L 18 127/85 100 03/04/20 08:31 03/04/20 08:31 03/04/20 08:31 03/04/20 08:31 03/04/20 08:31 Preop Diagnosis: Difficulty in swallowing Proposed Procedure: Operation Date: 03/04/20 09:15 Proposed Procedures p EGD 90595 R13.10(Not Applicable) - Amor Medley MD Familial anesthetic complications: None Was Beta Lala taken within 24 hours: N/A Last intake: Intake Last Liquid Date 03/04/20 Last Liquid Time 00:00 Last Solid Date 03/04/20 Last Solid Time 00:00 Social: Social History: Tobacco Exam: Pre-Anes Outpt Exam: alert, oriented x 3, clear to auscultation bilaterally and regular rate & rhythm Additional Exam Findings (including area of procedure): wheezes - will do breathing treatment Airway: Cervical ROM: WNL MP: 2 Dentition: Other (no teeth) Pulmonary: Pulmonary: COPD (2 L NC) Comments: restrictive lung disease infiltrate on X ray positive for pneumocystis GI: GI: GERD Anesthetic Plan: ASA status: 3 Anesthesia: MAC Meds/Allergies Current Medications: Current Medications Generic Name Dose Route Start Last Admin Trade Name Freq PRN Reason Stop Dose Admin Hydromorphone HCl 2 mg 03/02/20 21:34 03/04/20 05:57 Dilaudid Inj IVP 2 mg Q6H PRN Administration abd pain Dextrose/Sodium Ch loride 1,000 mls @ 75 ml s/hr 03/02/20 21:45 03/04/20 02:25 Dextrose 5%-Sod Chloride 0.45% IV 75 mls/hr .[id number] VALENTINO Administration Sodium Chloride 1,000 mls @ 30 ml s/hr 03/04/20 08:30 03/04/20 08:48 Sodium Chloride 0.9% IV 03/05/20 08:29 30 mls/hr .Q24H VALENTINO Administration Methylprednisolone Sodium Succinate 30 mg 03/02/20 22:00 03/03/20 21:01 Solu-Medrol IVP 30 mg Q12H VALENITNO Administration Metoclopramide HCl 5 mg 03/02/20 21:35 03/03/20 12:21 Reglan IVP 5 mg Q12H PRN Administration NAUSEA AND VOMITI NG Ondansetron HCl 4 mg 03/02/20 21:35 03/04/20 06:30 Zofran IVP 4 mg Q6H PRN Administration NAUSEA AND VOMITI NG Pantoprazole Sodiu m 40 mg 03/03/20 09:00 03/03/20 09:35 Protonix IVP 40 mg DAILY VALENTINO Administration PFSH Anesthesia PFSH: Medical History (Updated 03/02/20 @ 21:50 by Frances Mello MD) Bladder stone Borderline personality disorder Chronic anxiety Chronic back pain greater than 3 months duration Chronic cystitis with hematuria Foreign body in bladder GERD without esophagitis Neurogenic bladder Nicotine dependence, cigarettes, with other nicotine-induced disorders Quit in 2019 Oxygen dependent Restrictive lung disease Schizoaffective disorder, bipolar type Urgency incontinence Surgical History H/O: hysterectomy History of appendectomy History of breast biopsy History of ureter stent Hx of cholecystectomy S/P bronchoscopy with biopsy Family History Other Asthma Cancer Diabetes Heart disease Social History Smoking and tobacco status: former smoker Quit status (tobacco): has quit using tobacco Year quit tobacco: 2019 1PPD x 25 Years Alcohol intake: never Lives independently: Yes Household members: spouse Marital status: Number of children: 3 Current occupational status: disabled History of recent travel: No Current gender identity: Female Female Reproductive History: Date of last menstrual period: 06/19/95 Data Anesthesia CBC & Chem 7: 03/03/20 04:08 03/03/20 04:08 Other Labs: Laboratory Results - last 48 hr 03/02/20 03/02/20 03/02/20 00:05 17:39 17:39 WBC 16.1 H RBC 4.42 Hgb 12.3 Hct 38.9 MCV 88.0 MCH 27.8 L MCHC 31.6 RDW 15.9 H Plt Count 260 MPV 9.8 Neut % (Auto) 77.5 Lymph % (Auto) 13.3 [place] % (Auto) 6.4 Eos % (Auto) 1.6 Baso % (Auto) 0.6 Neut # (Auto) 12.46 H Lymph # (Auto) 2.1 [place] # (Auto) 1.0 H Eos # (Auto) 0.3 Baso # (Auto) 0.1 Nucleated RBC % (auto) 0 Nucleated RBCs # 0.0 Specimen Type Arterial Sample Site Radial, left ABG pH 7.33 L ABG pCO2 42.0 ABG pO2 61.7 L ABG HCO3 22.2 ABG Base Excess -3.6 L Juan Test Pos Hematocrit 37.9 O2 Delivery Device Nc O2 Liters/Min 2.0 Adjustment Clerk ID ellpe Sodium Potassium Chloride Carbon Dioxide Anion Gap BUN Creatinine GFR Calculation Glucose Calculated Osmolality Lactic Acid 1.0 Calcium Total Bilirubin AST ALT Alkaline Phosphatase Total Protein Albumin Globulin Lipase Urine Color Urine Appearance Urine pH Ur Specific [place] Urine Protein Urine Glucose (UA) Urine Ketones Urine Blood Urine Nitrate Urine Bilirubin Urine Urobilinogen Ur Leukocyte Esterase Serum Ketones SARS-CoV-2 Ag (Rapid) 03/02/20 03/02/20 03/02/20 17:39 17:53 19:45 WBC RBC Hgb Hct MCV MCH MCHC RDW Plt Count MPV Neut % (Auto) Lymph % (Auto) [place] % (Auto) Eos % (Auto) Baso % (Auto) Neut # (Auto) Lymph # (Auto) [place] # (Auto) Eos # (Auto) Baso # (Auto) Nucleated RBC % (auto) Nucleated RBCs # Specimen Type Sample Site ABG pH ABG pCO2 ABG pO2 ABG HCO3 ABG Base Excess Juan Test Hematocrit O2 Delivery Device O2 Liters/Min Adjustment Clerk ID Sodium 137 Potassium 4.1 Chloride 104 Carbon Dioxide 21 L Anion Gap 16.1 BUN 10 Creatinine 1.0 H GFR Calculation 58.2 L Glucose 112 Calculated Osmolality 281 L Lactic Acid Calcium 9.0 Total Bilirubin 0.2 AST 11 ALT 8 Alkaline Phosphatase 128 H Total Protein 6.0 L Albumin 3.7 Globulin 2.3 Lipase 33 Urine Color Yellow Urine Appearance Clear Urine pH 5 Ur Specific [place] 1.010 Urine Protein Neg Urine Glucose (UA) Norm Urine Ketones Negative Urine Blood Neg Urine Nitrate Negative Urine Bilirubin Neg Urine Urobilinogen Norm Ur Leukocyte Esterase Negative Serum Ketones Negative SARS-CoV-2 Ag (Rapid) Negative 03/03/20 03/03/20 04:08 04:08 WBC 9.6 RBC 4.72 Hgb 13.0 Hct 41.8 MCV 88.6 MCH 27.5 L MCHC 31.1 RDW 15.8 H Plt Count 283 MPV 10.6 H Neut % (Auto) 88.3 Lymph % (Auto) 9.6 [place] % (Auto) 0.8 Eos % (Auto) 0.1 Baso % (Auto) 0.5 Neut # (Auto) 8.46 H Lymph # (Auto) 0.9 [place] # (Auto) 0.1 L Eos # (Auto) 0.0 Baso # (Auto) 0.1 Nucleated RBC % (auto) 0 Nucleated RBCs # 0.0 Specimen Type Sample Site ABG pH ABG pCO2 ABG pO2 ABG HCO3 ABG Base Excess Juan Test Hematocrit O2 Delivery Device O2 Liters/Min Adjustment Clerk ID Sodium 138 Potassium 4.5 Chloride 106 Carbon Dioxide 20 L Anion Gap 16.5 BUN 9 Creatinine 0.8 GFR Calculation 75.3 L Glucose 146 H Calculated Osmolality 285 Lactic Acid Calcium 9.2 Total Bilirubin 0.2 AST 12 ALT 9 Alkaline Phosphatase 141 H Total Protein 6.9 Albumin 3.9 Globulin 3.0 Lipase Urine Color Urine Appearance Urine pH Ur Specific [place] Urine Protein Urine Glucose (UA) Urine Ketones Urine Blood Urine Nitrate Urine Bilirubin Urine Urobilinogen Ur Leukocyte Esterase Serum Ketones SARS-CoV-2 Ag (Rapid) Cardiac Studies: No Data to Display
[2020-03-04] MEDS: ipratropium 0.5 mg/2.5 mL Neb INHALATION (09:04)
[2020-03-04] MEDS: HYDROcodone-acetaminophen 5-325 mg Tablet 1 TAB PO ×2 (11:47→18:00)
[2020-03-04] MEDS: metoclopramide 5 mg/mL SDV 2 mL IVP (11:49)
--- NOTE | 2020-03-04 14:02 | P.PN_ITS ---
Subjective Subjective: Interval history: Latesha reports her stomach still cramps. She states she vomited her lunch. Wanting something for the cramping. Had an EGD this morning that demonstrated gastritis, reflux changes of her esophagus. Medications: Reviewed: Yes Vitals/I&O/Wt Last Vital Signs Temp 98.4 F 03/04/20 10:43 Pulse 69 03/04/20 10:43 Resp 18 03/04/20 10:43 BP 133/77 03/04/20 10:43 Pulse Ox 96 03/04/20 10:43 03/03/20 03/04/20 03/04/20 22:59 06:59 14:59 Intake Total 480 / 1480 1150.00 / 2630.00 240 / 240 Output Total 450 / 950 600 / 1550 0 / 0 Balance 30 / 530 550.00 / 1080.00 240 / 240 Weight last 48 hrs Weight 90.718 kg Physical Exam Narrative: EXAM NARRATIVE: General exam no apparent distress Cardiovascular regular in rhythm without murmur Lungs slightly coarse bibasilar Abdomen is soft. Positive bowel sounds. Subjective tenderness. Extremities no cyanosis clubbing or edema Data : 03/03/20 04:08 03/03/20 04:08 A&P Assessment and plan (1) Intractable nausea and vomiting: Still present. Add Ativan as needed Protonix to twice daily Continue Zofran, Reglan as needed Any 5 cc an hour. Status: Acute (2) Abdominal pain: Lipase normal CT abdomen and pelvis negative for any pathology that would cause abdominal discomfort Possibly secondary to gastritis Status: Acute Qualifiers: Abdominal location: upper abdomen, unspecified Qualified Code(s): R10.10 - Upper abdominal pain, unspecified (3) Acute exacerbation of chronic obstructive airways disease: Improved significantly. Discontinue IV steroids Continue pulmonary toilet Status: Acute (4) Infiltrate of lung present on imaging of chest: COVID negative, PCR. Appears to be chronic changes. Status: Acute Additional A&P Information SCDs for DVT prophylaxis secondary to gastritis Full code Attestations Medical Necessity Statement*: Continued hospitalization secondary to persistent nausea, inability to take p.o. 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
--- NOTE | 2020-03-04 14:03 | PC.RESP ---
Pulmonary Rehab information to patient.
[2020-03-04] MEDS: pantoprazole 40 mg SDV IVP (15:14)
[2020-03-04] MEDS: BuSPIRONE 10 mg Tablet PO ×2 (15:14→20:41)
[2020-03-04] MEDS: venlafaxine ER (24HR) 75 mg Capsule PO (16:55)
--- NOTE | 2020-03-04 17:52 | PC.NURSE ---
Notified Dr Medley that patient gets nauseated every time she eats.
--- NOTE | 2020-03-04 17:59 | PC.NURSE ---
per Dr Medley, no new orders at this time.
[2020-03-04] MEDS: budesonide 0.5 mg/2 mL Neb INHALATION (19:59)
[2020-03-04] MEDS: ipratropium-albuterol 3 mL Neb NEBULIZER (19:59)
[2020-03-04] MEDS: quetiapine 300 mg Tablet PO (20:41)
[2020-03-04] MEDS: LORazepam 0.5 mg Tablet PO (20:44)
[2020-03-05] MEDS: pantoprazole 40 mg SDV IVP (01:56)
[2020-03-05] MEDS: HYDROcodone-acetaminophen 5-325 mg Tablet 1 TAB PO (02:04)
[2020-03-05 03:00] VITALS: BP 96/57; PULSE 78; RESP 18; TEMP 36.6; O2SAT 97
[2020-03-05] MEDS: dextrose 5%-sod chloride 0.45% 1,000 ML 75 ML IV (03:24)
[2020-03-05 05:19] LABS: Basophils # 0.1 10^3/uL (0.0-0.1); Basophils % 0.8 %; Eosinophils # 0.1 10^3/uL (0.0-0.8); Eosinophils % 1.6 %; Hematocrit 41.4 % (37.0-47.0); Lymphocytes # 2.7 10^3/uL (0.8-4.8); Lymphocytes % 35.2 %; Mean Corpuscular HGB Conc 31.4 g/dL (30.0-36.0); Mean Corpuscular Hemoglobin 27.5 pg (28.0-34.0); Mean Corpuscular Volume 87.5 fL (81-99); Mean Platelet Volume 10.5 fL (7.4-10.4); Monocytes # 0.8 10^3/uL (0.2-0.9); Monocytes % 10.3 %; Neutrophils # 3.97 10^3/uL (1.8-7.7); Neutrophils % 51.5 %; Nucleated Red Blood Cells % 0 %; Platelet Count 244 10^3/cmm (130-400); Red Blood Count 4.73 10^6/uL (4.1-5.3); White Blood Count 7.7 10^3/uL (4.0-10.0)
[2020-03-05 05:44] LABS: Alanine Aminotransferase 8 U/L (0-33); Albumin Level 3.2 g/dL (3.5-5.2); Alkaline Phosphatase 116 IU/L (35-105); Aspartate Amino Transferase 10 U/L (0-32); Blood Urea Nitrogen 10 mg/dL (6-20); Calcium 8.6 mg/dL (8.5-10.5); Carbon Dioxide 22 mmol/L (22-29); Chloride 105 mmol/L (98-107); Globulin 2.7 g/dL (1.3-4.6); Glomerular Filtration Rate 75.3 mL/min (90-130); Glucose 108 mg/dL (65-115); Osmolality Calculated 284 mOsm/kg (285-295); Sodium 137 mmol/L (136-145); Total Bilirubin 0.2 mg/dL (0.15-1.2); Total Protein 5.9 g/dL (6.6-8.7)
[2020-03-05 05:46] LABS: Anion Gap 13.8 (5-19); Potassium 3.8 mmol/L (3.5-5.1)
[2020-03-05 05:53] LABS: H. Pylori / CLO Test Negative
[2020-03-05 07:00] VITALS: BP 111/63; PULSE 76; RESP 18; TEMP 36.9; O2SAT 97
--- NOTE | 2020-03-05 08:10 | ANE.PACU2 ---
Inpatient post-anesthesia follow up: Airway intact: Yes Vital signs: Temperature 98.4 F Pulse Rate [Monito r] 98 Pulse Rate 76 Respiratory Rate 18 Blood Pressure [Ri ght Arm] 132/83 Blood Pressure 111/63 Pulse Oximetry 97 Oxygen Delivery Me thod [ Nasal Cannula Current Rate & Del justine] Oxygen Delivery Me thod Room Air Oxygen Flow Rate [ Current Rate 2 & Delivery] Oxygen Flow Rate 2 Fraction of Inspir ed Oxygen Hydration adequate: Yes Nausea and vomiting: No Pain level: 2 Mental status: Baseline
[2020-03-05 08:40] VITALS: PULSE 71; RESP 16; O2SAT 99
[2020-03-05] MEDS: ipratropium-albuterol 3 mL Neb NEBULIZER (08:40)
[2020-03-05] MEDS: budesonide 0.5 mg/2 mL Neb INHALATION (08:40)
[2020-03-05 08:46] VITALS: PULSE 70
--- NOTE | 2020-03-05 08:56 | PM.DCS ---
Discharge Providers Date of Admission: 03/03/20 18:25 Date of Discharge: March 05, 2020 Attending Provider at Admission: Brant Bernal MD Attending Provider at Discharge: Meño Medley MD Primary Care Provider: AMANDEEP Barclay Diagnoses at Discharge Discharge Diagnosis (1) Intractable nausea and vomiting: Status: Acute Problem details: Resolved (2) Abdominal pain: Status: Acute Problem details: Resolved Qualifiers: Abdominal location: upper abdomen, unspecified Qualified Code(s): R10.10 - Upper abdominal pain, unspecified (3) Acute exacerbation of chronic obstructive airways disease: Status: Acute Problem details: Improved (4) Infiltrate of lung present on imaging of chest: Status: Acute Reason for Visit Reason for Visit: N/V/ABD PAIN Hospital Course Hospital Course: Latesha is a 54-year-old white female who presented to the hospital with vomiting and nausea. She was also having some difficulty breathing and there was concern for COPD exacerbation. She was placed on nausea medicines, Protonix, and surgical consultation was obtained. For COPD exacerbation she was placed on IV steroids and breathing treatments. She had no evidence of GI bleeding. A COVID PCR test was completed and negative. An EGD was performed in which an H. pylori biopsy was obtained which was negative. EGD demonstrated mild to moderate gastritis, and reflux changes in the esophagus. Following this nausea and vomiting abated as well as abdominal discomfort and she was able to tolerate breakfast the following day. It was thought she could discharge home, on Protonix twice daily. She was counseled to reduce caffeine, no anti-inflammatories, no alcohol, no nicotine. She will follow-up with her primary care provider. Some of her chronic medication was adjusted downward as well in case this contributed to nausea. Physical Exam Narrative: EXAM NARRATIVE: General exam no apparent distress Cardiovascular regular rate and rhythm without murmur Lungs clear no wheezing or crackles Abdomen is soft nontender with positive bowel sounds Extremities no cyanosis clubbing or edema Discharge Data Data Completed and Pending: Labs from last 24 hours 03/05/20 03/05/20 03/04/20 04:37 04:37 09:38 WBC 7.7 RBC 4.73 Hgb 13.0 Hct 41.4 MCV 87.5 MCH 27.5 L MCHC 31.4 RDW 15.0 Plt Count 244 MPV 10.5 H Neut % (Auto) 51.5 Lymph % (Auto) 35.2 [place] % (Auto) 10.3 Eos % (Auto) 1.6 Baso % (Auto) 0.8 Neut # (Auto) 3.97 Lymph # (Auto) 2.7 [place] # (Auto) 0.8 Eos # (Auto) 0.1 Baso # (Auto) 0.1 Nucleated RBC % (a uto) 0 Nucleated RBCs # 0.0 Sodium 137 Potassium 3.8 Chloride 105 Carbon Dioxide 22 Anion Gap 13.8 BUN 10 Creatinine 0.8 GFR Calculation 75.3 L Glucose 108 Calculated Osmolal ity 284 L Calcium 8.6 Total Bilirubin 0.2 AST 10 ALT 8 Alkaline Phosphata se 116 H Total Protein 5.9 L Albumin 3.2 L Globulin 2.7 H. pylori IgG Anti body Negative Vitals: Last Vital Signs Temp 98.4 F 03/05/20 07:00 Pulse 70 03/05/20 08:46 Resp 16 03/05/20 08:40 BP 111/63 03/05/20 07:00 Pulse Ox 99 03/05/20 08:40 Discharge Plan Discharge Patient Disposition: Home Condition: Stable Prescriptions: Continued hydrocodone-acetaminophen [[place]] 5-325 mg tablet 1 tab PO Q6H PRN (Reason: Pain) RF: 0 Narcan 4 mg/actuation spray,non-aerosol 4 mg INTRANASAL Q2M PRN (Reason: OVERDOSE) RF: 0 ondansetron 4 mg tablet,disintegrating 4 mg PO Q6H PRN (Reason: Nausea) RF: 0 buspirone 10 mg tablet 10 mg PO TID Qty: 90 RF: 0 lamotrigine 200 mg tablet 200 mg PO DAILY Qty: 30 RF: 0 quetiapine [Seroquel] 300 mg tablet 300 mg PO BEDTIME Qty: 30 RF: 0 venlafaxine 75 mg capsule,extended release 24hr 75 mg PO BID Qty: 60 RF: 0 polyethylene glycol 3350 [Miralax] 17 gram/dose powder 17 gm PO DAILY PRN (Reason: constipation) RF: 0 aspirin 81 mg tablet,delayed release (DR/EC) 81 mg PO DAILY RF: 0 Ingrezza 80 mg capsule 80 mg PO DAILY 1 Days RF: 2 lorazepam 0.5 mg tablet 0.5 mg PO DAILY PRN (Reason: Anxiety) 30 Days Qty: 30 RF: 0 budesonide [Pulmicort] 0.5 mg/2 mL suspension for nebulization 0.5 mg INHALATION BID 30 Days Qty: 120 RF: 2 ipratropium-albuterol 0.5 mg-3 mg(2.5 mg base)/3 mL solution for nebulization See Rx Instructions .ROUTE .COMPLEX Qty: 1620 RF: 3 acetaminophen [Tylenol] 325 mg Tablet 325 - 650 mg PO QID PRN (Reason: Pain) RF: 0 promethazine [Promethegan] 25 mg suppository 25 mg NV Q12H PRN (Reason: Nausea And Vomiting) RF: 0 pantoprazole 40 mg tablet,delayed release (DR/EC) 40 mg PO BID RF: 0 Discontinued hydroxyzine pamoate 50 mg capsule 50 mg PO TID PRN (Reason: Anxiety) Qty: 90 RF: 0 trazodone 100 mg tablet 200 mg PO BEDTIME 30 Days Qty: 60 RF: 0 Discharge Orders: Discharge Order (Routine); Ordered 03/05/20 Ordered By: Meño Medley Referrals: Dara Tavera FNP [Primary Care Provider] - 4-7 days Discharge Diet: GI Soft Discharge Activity: Increase activity as tolerated Activity Restrictions/Additional Instructions: Take all medicines as prescribed No anti-inflammatories Reduce caffeine No nicotine products Follow-up with primary care provider Discharge Attestations Time Spent in Discharge Care*: greater than 30 min Status at Discharge: Cognitive status at discharge: cognitively intact, Behavioral status at discharge: cooperative, Quality Metrics Clinical Quality Measures During this hospital stay, did patient experience: None Coding Level of Care Code 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
[2020-03-05] MEDS: venlafaxine ER (24HR) 75 mg Capsule PO (09:20)
[2020-03-05] MEDS: lamoTRIgine 100 mg Tablet 200 MG PO (09:20)
[2020-03-05] MEDS: BuSPIRONE 10 mg Tablet PO (09:21)
--- NOTE | 2020-03-05 11:57 | PC.NURSE ---
went over discharge instructions. all questions answered, informed pt to call incase she had any more questions.
[2020-03-05 11:59] VITALS: PULSE 70
== END 2020-03-05 11:00 | disposition home or self-care (01) | DRG 392 ==
LOC: ER 17:26 → MEDSURG 20:19
PROVIDERS: Family Medicine; Internal Medicine; Surgery; Admitting Provider Internal Medicine; PCP Registered Nurse; Visit Provider Internal Medicine
PROC: 0DJ08ZZ Inspection of Upper Intestinal Tract, Via Natural or Artificial Opening Endoscopic (ICD-10-PCS; CPT 43235; principal; 2020-03-04 09:15)
DX: K29.70 Gastritis, unspecified, without bleeding (principal); J44.1 Chronic obstructive pulmonary disease with (acute) exacerbation; R11.2 Nausea with vomiting, unspecified; R91.8 Other nonspecific abnormal finding of lung field; Z20.828 Contact with and (suspected) exposure to other viral communicable diseases; Z87.891 Personal history of nicotine dependence; F41.9 Anxiety disorder, unspecified; G89.29 Other chronic pain; M54.9 Dorsalgia, unspecified; F60.3 Borderline personality disorder; K21.9 Gastro-esophageal reflux disease without esophagitis; K59.00 Constipation, unspecified
CPT/HCPCS: 12345; 36415; 36600; 43239; 80053; 81003; 82009; 82803; 83605; 83690; 85025; 87077; 87426; 94640; 96375; 99282; C9113; G0378; J1170; J2405; J2765; J2920; J7030; J7611; J7626; J7644; J7799

== ENCOUNTER 2020-03-04 09:15 | Outpatient (CLI) | payer MEDICARE, MEDICAID, SELFPAY ==
[2020-03-02 12:27] VITALS: BMI 33.3
--- NOTE | 2020-03-02 19:17 | PM.HP ---
Providers/Chief Complaint Primary Care Provider: AMANDEEP Barclay Chief Complaint: dysphagia History of Present Illness Latesha Wilhelm is a 54 year old female Medications/Allergies Home Medications Medication Instructions Recorded Confirmed Last Taken Type polyethylene glycol 3350 17 17 gm PO DAILY PRN gm 06/13/19 03/02/20 02/13/20 History gram/dose oral powder promethazine [Promethegan] 25 mg PA Q12H PRN 09/07/19 03/02/20 03/02/20 History aspirin 81 mg tablet,delayed 81 mg PO DAILY 11/28/19 03/02/20 02/29/20 History release valbenazine 80 mg capsule 80 mg PO DAILY 1 Days cap 12/30/19 03/02/20 03/02/20 Rx lorazepam 0.5 mg tablet 0.5 mg PO DAILY PRN 30 Days #30 tab 02/12/20 03/02/20 03/02/20 Rx acetaminophen [Tylenol] 325 - 650 mg PO QID PRN 02/13/20 03/02/20 02/13/20 History buspirone 10 mg tablet 10 mg PO TID #90 tab 02/17/20 03/02/20 03/02/20 Rx hydroxyzine pamoate 50 mg capsule 50 mg PO TID PRN #90 cap 02/17/20 03/02/20 03/02/20 Rx lamotrigine 200 mg tablet 200 mg PO DAILY #30 tab 02/17/20 03/02/20 03/02/20 Rx quetiapine 300 mg tablet 300 mg PO BEDTIME #30 tab 02/17/20 03/02/20 03/01/20 Rx trazodone 100 mg tablet 200 mg PO BEDTIME 30 Days #60 tab 02/17/20 03/02/20 03/01/20 Rx venlafaxine 75 mg capsule,extended 75 mg PO BID #60 cap 02/17/20 03/02/20 03/02/20 Rx release 24 hr hydrocodone 5 mg-acetaminophen 325 1 tab PO Q6H PRN 02/20/20 03/02/20 03/02/20 History mg tablet naloxone 4 mg/actuation nasal spray 4 mg INTRANASAL Q2M PRN 02/20/20 03/02/20 Unknown History ondansetron 4 mg disintegrating 4 mg PO Q6H PRN 02/20/20 03/02/20 03/02/20 History tablet budesonide 0.5 mg/2 mL suspension 0.5 mg INHALATION BID 30 Days #120 02/25/20 03/02/20 03/02/20 Rx for nebulization ml ipratropium 0.5 mg-albuterol 3 mg See Rx Instructions .ROUTE 02/26/20 03/02/20 03/02/20 Rx (2.5 mg base)/3 mL nebulization .COMPLEX #1620 ml soln pantoprazole 40 mg PO BID 03/02/20 03/02/20 03/02/20 History Allergies Allergy/AdvReac Type Severity Reaction Status Date / Time Penicillins Allergy Severe ALGY-Anaphy Verified 03/02/20 12:27 laxis sulfamethoxazole Allergy Severe ALGY-Hives Verified 03/02/20 12:27 [From Bactrim] Tetracyclines Allergy Severe ALGY-Hives Verified 03/02/20 12:27 gabapentin [From Neurontin] Allergy Intermediate ADR-Halluci Verified 03/02/20 12:27 nating ketorolac [From Toradol] Allergy Intermediate ALGY-Rash Verified 03/02/20 12:27 lithium Allergy Intermediate ADR-Halluci Verified 03/02/20 12:27 nating fentanyl Allergy Mild rash Verified 03/02/20 12:27 adhesive tape Allergy Rash Verified 03/02/20 12:27 codeine Allergy GI Verified 03/02/20 12:27 haloperidol [From Haldol] Allergy unknown Verified 03/02/20 12:27 quetiapine [From Seroquel] Allergy Unknown Verified 03/02/20 12:27 trimethoprim [From Bactrim] Allergy ALGY-Hives Verified 03/02/20 12:27 ziprasidone [From Geodon] AdvReac Severe ADR-Halluci Verified 03/02/20 12:27 nating influenza virus vac qs AdvReac Mild ADR-Nausea Verified 03/02/20 12:27 19-(4 yr up) cell derived [From Flucelvax Quad [id number] (PF)] risperidone [From Risperdal] AdvReac ADR-Halluci Verified 03/02/20 12:27 nating PFSH Acute PFSH: Medical History (Updated 03/02/20 @ 00:02 by ) Bladder stone Borderline personality disorder Chronic anxiety Chronic back pain greater than 3 months duration Chronic cystitis with hematuria COPD (chronic obstructive pulmonary disease) Foreign body in bladder GERD without esophagitis Neurogenic bladder Nicotine dependence, cigarettes, with other nicotine-induced disorders Quit in 2019 Oxygen dependent Schizoaffective disorder, bipolar type Urgency incontinence Surgical History H/O: hysterectomy History of appendectomy History of breast biopsy History of ureter stent Hx of cholecystectomy S/P bronchoscopy with biopsy Family History Other Asthma Cancer Diabetes Heart disease Social History Smoking and tobacco status: former smoker Quit status (tobacco): has quit using tobacco Year quit tobacco: 2019 - 1PPD x 25 Years Alcohol intake: never Lives independently: Yes Household members: spouse Marital status: Number of children: 3 Current occupational status: disabled History of recent travel: No Current gender identity: Female Female Reproductive History: Date of last menstrual period: 06/19/95 Vitals/I&O/Wt Weight last 48 hrs Weight 90.718 kg Coding Level of Care Code Acute [employer]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
[2020-03-03 14:15] LABS: Coronavirus Lab Test PTC Negative
== END 2020-03-04 09:16 ==
LOC: OPS 01-19 04:57
PROVIDERS: PCP Registered Nurse; Visit Provider Surgery
DX: R13.10 Dysphagia, unspecified (principal)
CPT/HCPCS: 87635; J2704

== ENCOUNTER → 2020-03-09 07:49 | Outpatient (BNVA) | payer MEDICARE, MEDICAID, SELFPAY | PROVIDERS: PCP Registered Nurse; Visit Provider Nurse Practitioner | DX: F60.3 Borderline personality disorder (principal); F25.0 Schizoaffective disorder, bipolar type | CPT/HCPCS: 99213 ==

== ENCOUNTER 2020-03-11 13:16 | Emergency (ER) | payer MEDICARE, MEDICAID, SELFPAY ==
[2020-03-11 13:22] VITALS: PULSE 102; RESP 18; TEMP 36.7; O2SAT 98; BMI 33.7
--- NOTE | 2020-03-11 13:35 | ED_ITS ---
HPI - Abdominal Pain General: Chief Complaint: Abdominal Pain Stated Complaint: ABD PAIN, N/V Time Seen by Provider: 03/11/20 13:17 History of Present Illness: HPI narrative: Patient arrives via ambulance with complaints severe abdominal pain 2 days post EGD procedure. She was diagnosed with severe gastritis and increased bile in her abdomen. Patient said pains become a lot worse in her stomach since procedure. She cannot bear the pain now she says she is nauseated and cannot hold anything down. MD elicited complaint: abdominal pain Pertinent past history: gastritis Onset (ago): day(s) Pain Consistency: constant Location: Diffuse Severity: severe Quality: stabbing and aching Exacerbating factors: eating Relieving factors: nothing Context: recent surgery/procedure (EGD) Associated Symptoms: Reports nausea and vomiting; Denies chills and fever(s) Related Data: Date of Last Menstrual Period: 06/19/95 Review of Systems Const: Denies: fever(s), chills or body aches Eyes: Denies: change in vision or blurry vision ENMT: Denies: throat pain or nasal congestion Card: Denies: chest pain or dyspnea on exertion Resp: Denies: dyspnea, productive cough or non-productive cough GI: Reports: abdominal pain, nausea and vomiting Musc: Denies: extremity pain Skin/Breast: Denies: rash Neuro: Denies: headache(s) Psych: Denies: anxiety or depression Wilbur/Lymph: Denies: easy bruising [facility] ED PFSH: Medical History (Updated 03/11/20 @ 16:27 by AMANDEEP De La Rosa) Bladder stone Borderline personality disorder Chronic anxiety Chronic back pain greater than 3 months duration Chronic cystitis with hematuria Foreign body in bladder GERD without esophagitis Infiltrate of lung present on imaging of chest Neurogenic bladder Nicotine dependence, cigarettes, with other nicotine-induced disorders Quit in 2020 Oxygen dependent Restrictive lung disease Schizoaffective disorder, bipolar type Urgency incontinence Surgical History H/O: hysterectomy History of appendectomy History of breast biopsy History of ureter stent Hx of cholecystectomy S/P bronchoscopy with biopsy Family History Other Asthma Cancer Diabetes Heart disease Social History (Reviewed 03/10/20 @ 09:38 by STEFANI Bah Smoking and tobacco status: former smoker Quit status (tobacco): has quit using tobacco Year quit tobacco: 2020 - 1PPD x 25 Years Alcohol intake: never Lives independently: Yes Household members: spouse Marital status: Number of children: 3 Current occupational status: disabled History of recent travel: No Current gender identity: Female Female Reproductive History: Date of last menstrual period: 06/19/95 Physical Exam Const: COMMON NORMALS: no acute distress, average body habitus and patient oriented x3 HENMT: COMMON NORMALS: normocephalic HEAD & SCALP: normal to inspection and normocephalic FACE & SINUS: normal facial exam Eye: COMMON NORMALS: conjunctivae normal GENERAL EYE: appearance normal, both eyes and all related structures CONJUNCTIVA: Yes conjunctivae normal Neck/C-Spine: COMMON NORMALS: no JVD Chest: COMMONS NORMALS: normal inspection of the chest Resp: COMMON NORMALS: normal respiratory effort and clear to auscultation bilaterally AUSCULTATION: clear to auscultation bilaterally Cardio: COMMON NORMALS: no JVD, regular rate and regular rhythm RATE: regular rate RHYTHM: regular rhythm GI: AUSCULTATION: Yes normoactive bowel sounds PALPATION: Yes Tenderness to palpation present (GI) (Diffuse) Extremity: COMMON NORMALS: normal to inspection and full ROM Neuro: COMMON NORMALS: patient oriented x3 Course Vital Signs: Vital signs: Vital Signs Temperature 98.1 F 03/11/20 13:22 Pulse Rate 74 03/11/20 16:38 Respiratory Rate 18 03/11/20 16:38 Blood Pressure 128/76 03/11/20 16:38 Pulse Oximetry 97 03/11/20 16:38 MDM - Abdominal Pain MDM Narrative: Medical decision making narrative: Discussed with patient postprocedural problems CT rule out any free air. Patient follow-up for family medical provider [place] if any significant problems occur. Differential Diagnosis: Differential diagnosis abdominal pain: Likely abdominal pain, constipation, diverticulitis, gastroenteritis and small bowel obstruction Lab Data: Labs: Lab Results 03/11/20 03/11/20 03/11/20 Range/Units 12:39 13:54 13:54 WBC 15.7 H (4.0-10.0) 10^3/ uL RBC 4.96 (4.1-5.3) 10^6/u L Hgb 13.7 (11.5-15.3) g/dL Hct 42.9 (37.0-47.0) % MCV 86.5 (81-99) fL MCH 27.6 L (28.0-34.0) pg MCHC 31.9 (30.0-36.0) g/dL RDW 15.9 H (12.1-15.1) % Plt Count 288 (130-400) 10^3/c mm MPV 9.5 (7.4-10.4) fL Neut % (Auto) 72.9 % Lymph % (Auto) 16.8 % [place] % (Auto) 7.8 % Eos % (Auto) 1.0 % Baso % (Auto) 0.9 % Neut # (Auto) 11.41 H (1.8-7.7) 10^3/u L Lymph # (Auto) 2.6 (0.8-4.8) 10^3/u L [place] # (Auto) 1.2 H (0.2-0.9) 10^3/u L Eos # (Auto) 0.2 (0.0-0.8) 10^3/u L Baso # (Auto) 0.1 (0.0-0.1) 10^3/u L Nucleated RBC % (a uto) 0 % Nucleated RBCs # 0.0 /100WBC Sodium 134 L (136-145) mmol/L Potassium 4.0 (3.5-5.1) mmol/L Chloride 102 (98-107) mmol/L Carbon Dioxide 21 L (22-29) mmol/L Anion Gap 15.0 (5-19) BUN 14 (6-20) mg/dL Creatinine 1.1 H (0.5-0.9) mg/dL GFR Calculation 52.2 L (90-130) mL/min Glucose 107 (65-115) mg/dL Calculated Osmolal ity 279 L (285-295) mOsm/k g Calcium 9.8 (8.5-10.5) mg/dL Total Bilirubin 0.2 (0.15-1.2) mg/dL AST 9 (0-32) U/L ALT 8 (0-33) U/L Alkaline Phosphata se 120 H (35-105) IU/L Total Protein 6.8 (6.6-8.7) g/dL Albumin 3.9 (3.5-5.2) g/dL Globulin 2.9 (1.3-4.6) g/dL Lipase 24 (13-60) U/L Urine Color Yellow (Yellow) Urine Appearance Clear (CLEAR) Urine pH 5 (5-7) Ur Specific Gravit y 1.015 (1.005-1.030) Urine Protein Neg (Negative) Urine Glucose (UA) Norm (Normal) Urine Ketones Negative (Negative) Urine Blood Neg (Negative) Urine Nitrate Negative (Negative) Urine Bilirubin Neg (Negative) Urine Urobilinogen Neg (Negative) mg/dL Ur Leukocyte Stephanie ase Negative (Negative) Discharge Plan Discharge Patient Disposition: Home Clinical Impression: Gastritis Qualifiers: Gastritis type: superficial Chronicity: chronic Gastritis bleeding: without bleeding Qualified Code(s): K29.30 - Chronic superficial gastritis without bleeding Condition: Stable Prescriptions: New hydrocodone-acetaminophen 5-325 mg tablet 1 tab PO TID PRN (Reason: pain) Qty: 10 RF: 0 No Action Narcan 4 mg/actuation spray,non-aerosol 4 mg INTRANASAL Q2M PRN (Reason: OVERDOSE) RF: 0 ondansetron 4 mg tablet,disintegrating 4 mg PO Q6H PRN (Reason: Nausea) RF: 0 polyethylene glycol 3350 [Miralax] 17 gram/dose powder 17 gm PO DAILY PRN (Reason: constipation) RF: 0 aspirin 81 mg tablet,delayed release (DR/EC) 81 mg PO DAILY RF: 0 buspirone 10 mg tablet 10 mg PO TID Qty: 90 RF: 1 lamotrigine 200 mg tablet 200 mg PO DAILY Qty: 30 RF: 1 lorazepam 0.5 mg tablet 0.5 mg PO DAILY PRN (Reason: Anxiety) 30 Days Qty: 30 RF: 1 quetiapine [Seroquel] 300 mg tablet 300 mg PO BEDTIME Qty: 30 RF: 1 venlafaxine 75 mg capsule,extended release 24hr 75 mg PO BID Qty: 60 RF: 1 Ingrezza 80 mg capsule 80 mg PO DAILY 1 Days RF: 2 budesonide [Pulmicort] 0.5 mg/2 mL suspension for nebulization 0.5 mg INHALATION BID 30 Days Qty: 120 RF: 2 ipratropium-albuterol 0.5 mg-3 mg(2.5 mg base)/3 mL solution for nebulization See Rx Instructions .ROUTE .COMPLEX Qty: 1620 RF: 3 promethazine [Promethegan] 25 mg suppository 25 mg [place] Q12H PRN (Reason: Nausea And Vomiting) RF: 0 pantoprazole 40 mg tablet,delayed release (DR/EC) 40 mg PO BID RF: 0 hydroxyzine pamoate 50 mg capsule 50 mg PO TID RF: 0 Tylenol Arthritis Pain 650 mg Tablet Extended Release 1,300 mg PO PRN RF: 0 trazodone 100 mg tablet 200 mg PO BEDTIME RF: 0 Discharge Orders: Discharge Order (Routine); Ordered 03/11/20 Ordered By: David Guerin Referrals: Dara Tavera FNP [Primary Care Provider] - Discharge Diet: As Directed Discharge Activity: Increase activity as tolerated Patient Instructions: Gastritis (ED) Activity Restrictions/Additional Instructions: Follow-up with medical provider as directed. Take medications as prescribed. Return to the ER or your medical provider if condition worsens. Please read and understand discharge instructions. If any questions ask please. Use hydrocodone as needed not take more than 1 every 8 hours. 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
[2020-03-11] MEDS: ondansetron 2 mg/ML SDV 2 mL 4 MG IVP (13:47)
[2020-03-11 14:00] LABS: Basophils # 0.1 10^3/uL (0.0-0.1); Basophils % 0.9 %; Eosinophils # 0.2 10^3/uL (0.0-0.8); Hematocrit 42.9 % (37.0-47.0); Hemoglobin 13.7 g/dL (11.5-15.3); Lymphocytes # 2.6 10^3/uL (0.8-4.8); Lymphocytes % 16.8 %; Mean Corpuscular HGB Conc 31.9 g/dL (30.0-36.0); Mean Corpuscular Hemoglobin 27.6 pg (28.0-34.0); Mean Corpuscular Volume 86.5 fL (81-99); Mean Platelet Volume 9.5 fL (7.4-10.4); Monocytes # 1.2 10^3/uL (0.2-0.9); Monocytes % 7.8 %; Neutrophils # 11.41 10^3/uL (1.8-7.7); Neutrophils % 72.9 %; Nucleated Red Blood Cells % 0 %; Platelet Count 288 10^3/cmm (130-400); Red Blood Count 4.96 10^6/uL (4.1-5.3); Red Cell Distribution Width 15.9 % (12.1-15.1); White Blood Count 15.7 10^3/uL (4.0-10.0)
[2020-03-11 14:22] LABS: Alanine Aminotransferase 8 U/L (0-33); Albumin Level 3.9 g/dL (3.5-5.2); Alkaline Phosphatase 120 IU/L (35-105); Aspartate Amino Transferase 9 U/L (0-32); Blood Urea Nitrogen 14 mg/dL (6-20); Calcium 9.8 mg/dL (8.5-10.5); Carbon Dioxide 21 mmol/L (22-29); Chloride 102 mmol/L (98-107); Globulin 2.9 g/dL (1.3-4.6); Glomerular Filtration Rate 52.2 mL/min (90-130); Glucose 107 mg/dL (65-115); Lipase 24 U/L (13-60); Osmolality Calculated 279 mOsm/kg (285-295); Sodium 134 mmol/L (136-145); Total Bilirubin 0.2 mg/dL (0.15-1.2); Total Protein 6.8 g/dL (6.6-8.7)
[2020-03-11 14:45] LABS: Add Urine Microscopic? NO
[2020-03-11 14:47] VITALS: RESP 18; O2SAT 96
[2020-03-11] MEDS: morphine 4 mg/mL SDV 1 mL IVP ×2 (14:47→15:57)
[2020-03-11] MEDS: sodium chloride 0.9% 1,000 ML 999 ML IV (14:48)
[2020-03-11 14:56] LABS: Bilirubin Urine Neg (Negative); Blood Urine Neg (Negative); Glucose Urine UA Norm (Normal); Ketones Urine Negative (Negative); Leukocyte Esterase Urine Negative (Negative); Nitrate Urine Negative (Negative); Protein Urine Neg (Negative); Specific Gravity, Urine 1.015 (1.005-1.030); Urine Appearance Clear (CLEAR); Urine Color Yellow (Yellow); Urobilinogen Urine Neg (Negative); pH Urine 5 (5-7)
--- NOTE | 2020-03-11 15:08 | CT_ITS ---
WS: [id number] CT ABDOMEN PELVIS TECHNIQUE: Noncontrast CT of the abdomen and pelvis with coronal and sagittal reformatted images. CLINICAL INFORMATION: post EGD abdominal pain, unable to obtain IV access COMPARISON: 2019 DLP: 1118.[address] scans at [facility] use at least one of these dose optimization techniques: automat ed exposure control; mA and/or kV adjustment per patient size (includes targeted exams where dose is matched to clinical indication); or iterative reconstruction. FINDINGS: Cholecystectomy. Noncontrast liver is normal. Normal GE junction. Noncontrast spleen is normal. Fatty atrophy of the pancreas. Mild aortic and splenic artery calcification. Normal caliber abdominal aort a. Adrenal glands are normal. No hydronephrosis in either kidney. Lung bases are well aerated. No eviden ce of small or large bowel obstruction. Normal sigmoid colon. Prostate calcification. No abdominal or inguinal lymphadenopathy. No free air in the upper abdomen. Distal esophagus and GE junction appears normal. Stomach appears no rmal. CT/CT abdomen pelvis wo con [id number] IMPRESSION: 1. Normal GE junction. No free air in the upper abdomen. Normal stomach. 2. No evidence of small or large bowel obstruction. 3. Lung bases are well aerated. 4. No acute abdominal or pelvic findings. 5. Prior cholecystectomy. Prior appendectomy.
[2020-03-11 15:57] VITALS: RESP 18; O2SAT 96
[2020-03-11 16:38] VITALS: BP 128/76; PULSE 74; RESP 18; O2SAT 97
== END 2020-03-11 16:39 | disposition home or self-care (01) ==
PROVIDERS: Emergency Provider Nurse Practitioner Family; PCP Registered Nurse
DX: K29.30 Chronic superficial gastritis without bleeding (principal); Z79.82 Long term (current) use of aspirin; Z87.891 Personal history of nicotine dependence; Z99.81 Dependence on supplemental oxygen
CPT/HCPCS: 12345; 36415; 74176; 80053; 81003; 83690; 85025; 96361; 96374; 96375; 96376; 99282; 99283; J2270; J2405; J7030

== ENCOUNTER 2020-03-19 12:15 | Emergency (ER) | payer MEDICARE, MEDICAID, SELFPAY ==
[2020-03-19] VITALS (7 sets, daily range): BP systolic 98–144; BP diastolic 62–79; PULSE 79–107; RESP 14–20; TEMP 36.8; O2SAT 95–98; BMI 33.7
[2020-03-19 13:49] LABS: Basophils # 0.1 10^3/uL (0.0-0.1); Basophils % 0.5 %; Eosinophils # 0.2 10^3/uL (0.0-0.8); Eosinophils % 0.6 %; Hematocrit 45.9 % (37.0-47.0); Lymphocytes # 1.8 10^3/uL (0.8-4.8); Lymphocytes % 6.8 %; Mean Corpuscular HGB Conc 30.5 g/dL (30.0-36.0); Mean Corpuscular Hemoglobin 27.3 pg (28.0-34.0); Mean Corpuscular Volume 89.5 fL (81-99); Mean Platelet Volume 10.2 fL (7.4-10.4); Monocytes # 1.6 10^3/uL (0.2-0.9); Monocytes % 6.1 %; Neutrophils # 22.43 10^3/uL (1.8-7.7); Neutrophils % 85.5 %; Nucleated Red Blood Cells % 0 %; Platelet Count 271 10^3/cmm (130-400); Red Blood Count 5.13 10^6/uL (4.1-5.3); Red Cell Distribution Width 16.2 % (12.1-15.1); White Blood Count 26.3 10^3/uL (4.0-10.0)
--- NOTE | 2020-03-19 13:52 | CT_ITS ---
WS: [id number] CT scan of the abdomen and pelvis with IV contrast. Additional two-dimensional coronal and sagittal r econstruction was performed. 03/19/2020 Clinical Data: abd pain Comparison: CT abdomen and pelvis, 03/11/2020. DLP: 1284.[address] scans at [facility] use at least one of these dose optimization techniques: automat ed exposure control; mA and/or kV adjustment per patient size (includes targeted exams where dose is matched to clinical indication); or iterative reconstruction. Findings: The lower lungs show no nodules, masses or effusions. There is a small hiatal hernia.1 The liver, spleen, adrenal glands and pancreas are normal. There are clips in the gallbladder fossa f rom a cholecystectomy. The kidneys show equal bilateral contrast excretion with no cyst or masses. The abdominal aorta is normal in size with calcification in the wall.. No appendicitis or diverticulitis is seen. No abscess, adenopathy, ascites, mass, obstruction or free air is seen. The bladder is unremarkable. There are calcifications adjacent to the urethra which may be from surge ry. No inguinal hernia is seen. 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 There is a fusion between T11 and T12 with l oss of the intervertebral disc space. There is degenerative disc disease at L4-L5.. CT/CT abdomen pelvis w con* [id number] Impression: 1. Negative for acute intra-abdominal or pelvic abnormalities. 2. Hysterectomy and cholecystectomy.
--- NOTE | 2020-03-19 13:56 | W.ED.NAVMDI ---
HPI - Nausea/Vomiting/Diarrhea General: Chief complaint: Nausea/Vomiting/Diarrhea Stated complaint: n/v Time Seen by Provider: 03/19/20 13:48 Source: patient and EMS Mode of arrival: EMS Limitations: no limitations History of Present Illness: HPI Narrative: 54-year-old female who is very well-known to the ER with chronic vomiting and abdominal pain. States that over the last 2 to 3 days she had increased pain that is diffuse and vomiting. States she is unable to keep anything down. Denies any worsening or improving factors. Patient states her pain is a 3 out of 10 currently. Associated nausea: Yes Associated symtoms: Reports nausea; Denies chest pain, dysuria or headache(s) Review of Systems Const: Denies: fever(s), chills, body aches or change in appetite Eyes: Denies: blurry vision or eye discomfort ENMT: Denies: throat pain or dental pain Card: Denies: chest pain Resp: Denies: dyspnea GI: Reports: abdominal pain, nausea and vomiting : Denies: dysuria Musc: Denies: neck pain or back pain Skin/Breast: Denies: rash Neuro: Denies: headache(s) Psych: Denies: depression Wil[place]/Lymph: Denies: easy bruising All/Imm: Denies: urticaria PFSH ED PFSH: Medical History Bladder stone Borderline personality disorder Chronic anxiety Chronic back pain greater than 3 months duration Chronic cystitis with hematuria Foreign body in bladder GERD without esophagitis Infiltrate of lung present on imaging of chest Neurogenic bladder Nicotine dependence, cigarettes, with other nicotine-induced disorders Quit in 2019 Oxygen dependent Restrictive lung disease Schizoaffective disorder, bipolar type Urgency incontinence Surgical History H/O: hysterectomy History of appendectomy History of breast biopsy History of ureter stent Hx of cholecystectomy S/P bronchoscopy with biopsy Family History Other Asthma Cancer Diabetes Heart disease Social History Smoking and tobacco status: former smoker Quit status (tobacco): has quit using tobacco Year quit tobacco: 2019PD x 25 Years Alcohol intake: never Lives independently: Yes Household members: spouse Marital status: Number of children: 3 Current occupational status: disabled History of recent travel: No Current gender identity: Female Female Reproductive History: Date of last menstrual period: 06/19/95 Physical Exam Const: COMMON NORMALS: no acute distress, patient oriented x3 and healthy appearing HENMT: COMMON NORMALS: normocephalic and atraumatic HEAD & SCALP: normocephalic and atraumatic Eye: COMMON NORMALS: Equal, round and reactive pupils present and EOMs intact bilaterally PUPIL: Yes Equal, round and reactive pupils present Neck/C-Spine: COMMON NORMALS: full ROM and supple Chest: COMMONS NORMALS: normal inspection of the chest and normal palpation of entire chest wall Resp: COMMON NORMALS: normal respiratory effort, No retractions, No use of accessory muscles and clear to auscultation bilaterally AUSCULTATION: clear to auscultation bilaterally Cardio: COMMON NORMALS: regular rate, regular rhythm and No murmurs present (Cardio) RATE: regular rate RHYTHM: regular rhythm GI: COMMON NORMALS: Normal to inspection, nondistended, normoactive bowel sounds present, Soft to palpation and no masses PALPATION: Yes Soft to palpation and Yes Tenderness to palpation present (GI) (diffuse) Extremity: COMMON NORMALS: normal to inspection and full ROM Neuro: COMMON NORMALS: patient oriented x3, moves all extremities and no focal motor deficits Psych: COMMON NORMALS: mental status grossly normal, Normal thought process present and cooperative THOUGHT PROCESS: Normal thought process present Skin: COMMON NORMALS: no rashes or lesions noted and no wounds GENERAL SKIN EXAM: no rashes or lesions noted Course Vital Signs: Vital signs: Vital Signs Temperature 98.3 F 03/19/20 12:41 Pulse Rate 84 03/19/20 17:09 Respiratory Rate 14 03/19/20 17:09 Blood Pressure 144/75 03/19/20 17:09 Pulse Oximetry 97 03/19/20 17:09 MDM - Nausea/Vomiting/Diarrhea MDM Narrative: Medical decision making narrative: Latesha presents here with abdominal pain that is chronic in nature. She does have a leukocytosis it could be to vomiting. Her CT scan shows no acute findings and other lab work is all normal. She feels much improved and is requesting discharge. I feel she is stable for discharge she is to follow-up with PCP in 2 to 4 days to have a repeat WBC drawn. She is to return if worsening. She understands and agrees to plan. Lab Data: Labs: Lab Results 03/19/20 03/19/20 03/19/20 Range/Units 13:40 13:40 13:57 WBC 26.3 H (4.0-10.0) 10^3/ uL RBC 5.13 (4.1-5.3) 10^6/u L Hgb 14.0 (11.5-15.3) g/dL Hct 45.9 (37.0-47.0) % MCV 89.5 (81-99) fL MCH 27.3 L (28.0-34.0) pg MCHC 30.5 (30.0-36.0) g/dL RDW 16.2 H (12.1-15.1) % Plt Count 271 (130-400) 10^3/c mm MPV 10.2 (7.4-10.4) fL Neut % (Auto) 85.5 % Lymph % (Auto) 6.8 % [place] % (Auto) 6.1 % Eos % (Auto) 0.6 % Baso % (Auto) 0.5 % Neut # (Auto) 22.43 H (1.8-7.7) 10^3/u L Lymph # (Auto) 1.8 (0.8-4.8) 10^3/u L [place] # (Auto) 1.6 H (0.2-0.9) 10^3/u L Eos # (Auto) 0.2 (0.0-0.8) 10^3/u L Baso # (Auto) 0.1 (0.0-0.1) 10^3/u L Nucleated RBC % (a uto) 0 % Nucleated RBCs # 0.0 /100WBC Sodium 134 L (136-145) mmol/L Potassium 4.3 (3.5-5.1) mmol/L Chloride 103 (98-107) mmol/L Carbon Dioxide 21 L (22-29) mmol/L Anion Gap 14.3 (5-19) BUN 12 (6-20) mg/dL Creatinine 1.1 H (0.5-0.9) mg/dL GFR Calculation 52.2 L (90-130) mL/min Glucose 93 (65-115) mg/dL Calculated Osmolal ity 277 L (285-295) mOsm/k g Calcium 9.6 (8.5-10.5) mg/dL Total Bilirubin 0.2 (0.15-1.2) mg/dL AST 15 (0-32) U/L ALT 7 (0-33) U/L Alkaline Phosphata se 137 H (35-105) IU/L Total Protein 6.8 (6.6-8.7) g/dL Albumin 3.9 (3.5-5.2) g/dL Globulin 2.9 (1.3-4.6) g/dL Lipase 23 (13-60) U/L Urine Color Yellow (Yellow) Urine Appearance Clear (CLEAR) Urine pH 5 (5-7) Ur Specific Gravit y 1.015 (1.005-1.030) Urine Protein Neg (Negative) Urine Glucose (UA) Norm (Normal) Urine Ketones Negative (Negative) Urine Blood Neg (Negative) Urine Nitrate Negative (Negative) Urine Bilirubin Neg (Negative) Urine Urobilinogen Neg (Negative) mg/dL Ur Leukocyte Stephanie ase Negative (Negative) Imaging Data^: CT Abd/Pel: Radiologist's impression: [place] [address] CT Scan Report Signed Patient: Latesha Wilhelm Unit #: [id number] : [id number] Age/Sex: 54 / F ADM Date: 03/19/20 Loc: ER Room/Bed: Attending Dr: Ordering Provider/Ordering MD: Damien Urbina MD Date of Service: 03/19/20 Procedure(s): CT abdomen pelvis w con* [id number] Accession Number(s): [id number] Report Number: [id number] WS: [id number] CT scan of the abdomen and pelvis with IV contrast. Additional two-dimensional coronal and sagittal reconstruction was performed. 03/19/2020 Clinical Data: abd pain Comparison: CT abdomen and pelvis, 03/11/2020. DLP: 1284.[address] scans at [facility] use at least one of these dose optimization techniques: automated exposure control; mA and/or kV adjustment per patient size (includes targeted exams where dose is matched to clinical indication); or iterative reconstruction. Findings: The lower lungs show no nodules, masses or effusions. There is a small hiatal hernia.1 The liver, spleen, adrenal glands and pancreas are normal. There are clips in the gallbladder fossa from a cholecystectomy. The kidneys show equal bilateral contrast excretion with no cyst or masses. The abdominal aorta is normal in size with calcification in the wall.. No appendicitis or diverticulitis is seen. No abscess, adenopathy, ascites, mass, obstruction or free air is seen. The bladder is unremarkable. There are calcifications adjacent to the urethra which may be from surgery. No inguinal hernia is seen. 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 There is a fusion between T11 and T12 with loss of the intervertebral disc space. There is degenerative disc disease at L4-L5.. CT/CT abdomen pelvis w con* [id number] Impression: 1. Negative for acute intra-abdominal or pelvic abnormalities. 2. Hysterectomy and cholecystectomy. Discharge Plan Discharge Patient Disposition: Home Clinical Impression: Abdominal pain Qualifiers: Abdominal location: generalized Qualified Code(s): R10.84 - Generalized abdominal pain Vomiting Qualifiers: Vomiting type: unspecified Vomiting Intractability: non-intractable Nausea presence: with nausea Qualified Code(s): R11.2 - Nausea with vomiting, unspecified Condition: Stable Prescriptions: New Zofran 4 mg tablet 4 mg PO QID PRN (Reason: nausea and vomiting) Qty: 14 RF: 0 No Action Narcan 4 mg/actuation spray,non-aerosol 4 mg INTRANASAL Q2M PRN (Reason: OVERDOSE) RF: 0 ondansetron 4 mg tablet,disintegrating 4 mg PO Q6H PRN (Reason: Nausea) RF: 0 polyethylene glycol 3350 [Miralax] 17 gram/dose powder 17 gm PO DAILY PRN (Reason: constipation) RF: 0 aspirin 81 mg tablet,delayed release (DR/EC) 81 mg PO DAILY RF: 0 buspirone 10 mg tablet 10 mg PO TID Qty: 90 RF: 1 lamotrigine 200 mg tablet 200 mg PO DAILY Qty: 30 RF: 1 lorazepam 0.5 mg tablet 0.5 mg PO DAILY PRN (Reason: Anxiety) 30 Days Qty: 30 RF: 1 quetiapine [Seroquel] 300 mg tablet 300 mg PO BEDTIME Qty: 30 RF: 1 venlafaxine 75 mg capsule,extended release 24hr 75 mg PO BID Qty: 60 RF: 1 Ingrezza 80 mg capsule 80 mg PO DAILY 1 Days RF: 2 budesonide [Pulmicort] 0.5 mg/2 mL suspension for nebulization 0.5 mg INHALATION BID 30 Days Qty: 120 RF: 2 ipratropium-albuterol 0.5 mg-3 mg(2.5 mg base)/3 mL solution for nebulization See Rx Instructions .ROUTE .COMPLEX Qty: 1620 RF: 3 promethazine [Promethegan] 25 mg suppository 25 mg DE Q12H PRN (Reason: Nausea And Vomiting) RF: 0 pantoprazole 40 mg tablet,delayed release (DR/EC) 40 mg PO BID RF: 0 hydroxyzine pamoate 50 mg capsule 50 mg PO TID RF: 0 acetaminophen [Tylenol Arthritis Pain] 650 mg Tablet Extended Release 1,300 mg PO PRN RF: 0 trazodone 100 mg tablet 200 mg PO BEDTIME RF: 0 Ventolin HFA 90 mcg/actuation Hfa Aerosol Inhaler 2 puff INHALATION 6XD PRN (Reason: Shortness Of Breath) RF: 0 Discharge Orders: Discharge Order (Routine); Ordered 03/19/20 Ordered By: Damien Urbina Referrals: Dara Tavera FNP [Primary Care Provider] - Discharge Diet: Advance as tolerated Discharge Activity: Resume usual activity Patient Instructions: Abdominal Pain (ED) Discharge Date/Time: 03/19/20 17:10 Coding Level of Care Code ED Residential Treatment Specialist for Chg Fwd Exam Comprehensive
[2020-03-19 14:04] LABS: Alanine Aminotransferase 7 U/L (0-33); Albumin Level 3.9 g/dL (3.5-5.2); Alkaline Phosphatase 137 IU/L (35-105); Blood Urea Nitrogen 12 mg/dL (6-20); Calcium 9.6 mg/dL (8.5-10.5); Carbon Dioxide 21 mmol/L (22-29); Chloride 103 mmol/L (98-107); Globulin 2.9 g/dL (1.3-4.6); Glomerular Filtration Rate 52.2 mL/min (90-130); Glucose 93 mg/dL (65-115); Lipase 23 U/L (13-60); Osmolality Calculated 277 mOsm/kg (285-295); Sodium 134 mmol/L (136-145); Total Bilirubin 0.2 mg/dL (0.15-1.2); Total Protein 6.8 g/dL (6.6-8.7)
[2020-03-19 14:07] LABS: Anion Gap 14.3 (5-19); Aspartate Amino Transferase 15 U/L (0-32); Potassium 4.3 mmol/L (3.5-5.1)
[2020-03-19] MEDS: metoclopramide 5 mg/mL SDV 2 mL 10 MG IVP (14:22)
[2020-03-19] MEDS: sodium chloride 0.9% 1,000 ML 999 ML IV ×2 (14:23→15:29)
[2020-03-19] MEDS: diphenhydrAMINE 50 mg/mL SDV 1mL IVP (14:23)
[2020-03-19 14:29] LABS: Add Urine Microscopic? NO
[2020-03-19 14:41] LABS: Bilirubin Urine Neg (Negative); Blood Urine Neg (Negative); Glucose Urine UA Norm (Normal); Ketones Urine Negative (Negative); Leukocyte Esterase Urine Negative (Negative); Nitrate Urine Negative (Negative); Protein Urine Neg (Negative); Specific Gravity, Urine 1.015 (1.005-1.030); Urine Appearance Clear (CLEAR); Urine Color Yellow (Yellow); Urobilinogen Urine Neg (Negative); pH Urine 5 (5-7)
[2020-03-19] MEDS: morphine 4 mg/mL SDV 1 mL IVP (14:50)
[2020-03-19] MEDS: HYDROmorphone 1 mg/mL INJ 1 mL IVP (16:07)
[2020-03-19] MEDS: iodixanol 320 mg/mL 100mL Btl IV (16:21)
== END 2020-03-19 17:10 | disposition home or self-care (01) ==
PROVIDERS: Emergency Provider Emergency Medicine; PCP Registered Nurse
DX: R11.2 Nausea with vomiting, unspecified (principal); R10.84 Generalized abdominal pain; Z79.82 Long term (current) use of aspirin; Z87.891 Personal history of nicotine dependence
CPT/HCPCS: 12345; 36415; 74177; 80053; 81003; 83690; 85025; 96361; 96374; 96375; 99283; 99284; J1170; J1200; J2270; J2765; J7030; Q9967

== ENCOUNTER 2020-03-23 11:59 | Emergency (ER) | payer MEDICARE, MEDICAID, SELFPAY ==
[2020-03-23 12:16] VITALS: BP 133/79; PULSE 111; RESP 18; TEMP 36.4; O2SAT 98; BMI 33.1
[2020-03-23 13:53] LABS: Basophils # 0.1 10^3/uL (0.0-0.1); Basophils % 0.7 %; Eosinophils # 0.2 10^3/uL (0.0-0.8); Eosinophils % 1.2 %; Hemoglobin 13.7 g/dL (11.5-15.3); Lymphocytes # 2.5 10^3/uL (0.8-4.8); Lymphocytes % 13.4 %; Mean Corpuscular HGB Conc 29.8 g/dL (30.0-36.0); Mean Corpuscular Hemoglobin 27.5 pg (28.0-34.0); Mean Corpuscular Volume 92.4 fL (81-99); Mean Platelet Volume 9.9 fL (7.4-10.4); Monocytes # 1.3 10^3/uL (0.2-0.9); Monocytes % 6.9 %; Neutrophils # 14.21 10^3/uL (1.8-7.7); Neutrophils % 77.4 %; Nucleated Red Blood Cells % 0 %; Platelet Count 277 10^3/cmm (130-400); Red Blood Count 4.98 10^6/uL (4.1-5.3); Red Cell Distribution Width 16.5 % (12.1-15.1); White Blood Count 18.4 10^3/uL (4.0-10.0)
--- NOTE | 2020-03-23 13:53 | XR_ITS ---
WS: [id number] XR chest 1V portable [id number] REASON FOR EXAM: epigastric pain FINDINGS: The chest is unchanged compared to a previous examination of 02/28/2020. Heart and mediastinum are within limits. No active pulmonary parenchymal pleural disease noted. XR/XR chest 1V portable [id number] IMPRESSION: No acute chest abnormality.
--- NOTE | 2020-03-23 13:53 | XR_ITS ---
WS: [id number] XR KUB portable [id number] REASON FOR EXAM: epigastric pain FINDINGS: No free air or retroperitoneal air is identified. The bowel gas pattern is unremarkable. No mass or significant calcification is identified. Mild rotatory scoliosis of the lumbar spine convex right. Patient is status post cholecystectomy. Small calcified clips overlying the pubic symphysis. Multiple small coils overlying the superior pubi c ramus. XR/XR KUB portable [id number] IMPRESSION: No acute abdominal abnormality.
--- NOTE | 2020-03-23 13:58 | ED_ITS ---
HPI - Nausea/Vomiting/Diarrhea General: Chief complaint: Nausea/Vomiting/Diarrhea Stated complaint: UPPER ABD PAIN, N/V Time Seen by Provider: 03/23/20 13:49 History of Present Illness: HPI Narrative: 54-year-old female presents with epigastric pain. Patient has known severe gastroenteritis. Patient had a EGD in February. She is currently on Carafate and Protonix. She represents because she is continued to have worsening epigastric pain this morning. Patient reports she saw her nurse practitioner today and told her that if it does not get better she should come to the ER. Her nurse practitioner is attempting to schedule her an appointment with a GI specialist. Patient denies any diarrhea, fevers chills cough or other systemic complaints. Patient has some nausea but no vomiting Associated nausea: Yes Associated symtoms: Reports nausea; Denies anxiety, change in vision, chest pain, headache(s) or palpitations Review of Systems Const: Denies: fever(s) or chills Eyes: Denies: change in vision or blurry vision Card: Denies: chest pain or palpitations Resp: Denies: dyspnea or productive cough GI: Reports: abdominal pain and nausea; Denies: vomiting : Denies: flank pain or difficulty voiding Musc: Denies: neck pain Skin/Breast: Denies: rash or pruritus Neuro: Denies: headache(s) Psych: Denies: anxiety or depression PFSH ED PFSH: Medical History Bladder stone Borderline personality disorder Chronic anxiety Chronic back pain greater than 3 months duration Chronic cystitis with hematuria Chronic gastritis without bleeding Foreign body in bladder GERD without esophagitis Infiltrate of lung present on imaging of chest Neurogenic bladder Nicotine dependence, cigarettes, with other nicotine-induced disorders Quit in 2019 Oxygen dependent Restrictive lung disease Schizoaffective disorder, bipolar type Tertiary contraction of esophagus Urgency incontinence Surgical History H/O: hysterectomy History of appendectomy History of breast biopsy History of ureter stent Hx of cholecystectomy S/P bronchoscopy with biopsy Family History Other Asthma Cancer Diabetes Heart disease Social History Smoking and tobacco status: former smoker Quit status (tobacco): has quit using tobacco Year quit tobacco: 2019 - 1PPD x 25 Years Alcohol intake: never Lives independently: Yes Household members: spouse Marital status: Number of children: 3 Current occupational status: disabled History of recent travel: No Current gender identity: Female Female Reproductive History: Date of last menstrual period: 06/19/95 Physical Exam Const: COMMON NORMALS: no acute distress, average body habitus and patient oriented x3 HENMT: COMMON NORMALS: normocephalic, atraumatic and moist oral mucous membranes HEAD & SCALP: normocephalic and atraumatic Eye: COMMON NORMALS: Equal, round and reactive pupils present and EOMs intact bilaterally PUPIL: Yes Equal, round and reactive pupils present Resp: COMMON NORMALS: normal respiratory effort, No retractions and No use of accessory muscles Cardio: COMMON NORMALS: regular rate and regular rhythm RATE: regular rate RHYTHM: regular rhythm GI: COMMON NORMALS: Soft to palpation PALPATION: Yes Soft to palpation and Yes Tenderness to palpation present (GI) (Epigastric) : COMMON NORMALS: Yes no CVA tenderness BLADDER/KIDNEY EXAM: Yes no CVA tenderness Back/Pelvis: COMMON NORMALS: no CVA tenderness Extremity: COMMON NORMALS: normal to inspection, full ROM and capillary refill normal Neuro: COMMON NORMALS: patient oriented x3 and CN's II-XII intact bilaterally Psych: COMMON NORMALS: mental status grossly normal, cooperative and normal affect Skin: COMMON NORMALS: no rashes or lesions noted GENERAL SKIN EXAM: no rashes or lesions noted Course Vital Signs: Vital signs: Vital Signs Temperature 97.5 F L 03/23/20 12:16 Pulse Rate 71 03/23/20 17:09 Respiratory Rate 18 03/23/20 17:09 Blood Pressure 156/76 03/23/20 17:09 Pulse Oximetry 97 03/23/20 17:09 MDM - Nausea/Vomiting/Diarrhea MDM Narrative: Medical decision making narrative: Patient likely having chronic gastritis. She is slightly dehydrated and has been vomiting was most likely accounts for her elevated white blood cell count. Patient with no acute findings on x-ray of abdomen or chest. She does have a recent EGD that showed chronic gastritis and inflammation. Patient should follow with her primary care provider for continuation of care. Medical Records: Attestation: I reviewed the patient's medical records. Lab Data: Attestation: I reviewed the patient's lab results. Labs: Lab Results 03/23/20 03/23/20 Range/Units 13:43 13:43 WBC 18.4 H (4.0-10.0) 10^3/ uL RBC 4.98 (4.1-5.3) 10^6/u L Hgb 13.7 (11.5-15.3) g/dL Hct 46.0 (37.0-47.0) % MCV 92.4 D (81-99) fL MCH 27.5 L (28.0-34.0) pg MCHC 29.8 L D (30.0-36.0) g/dL RDW 16.5 H (12.1-15.1) % Plt Count 277 (130-400) 10^3/c mm MPV 9.9 (7.4-10.4) fL Neut % (Auto) 77.4 % Lymph % (Auto) 13.4 % [place] % (Auto) 6.9 % Eos % (Auto) 1.2 % Baso % (Auto) 0.7 % Neut # (Auto) 14.21 H (1.8-7.7) 10^3/u L Lymph # (Auto) 2.5 (0.8-4.8) 10^3/u L [place] # (Auto) 1.3 H (0.2-0.9) 10^3/u L Eos # (Auto) 0.2 (0.0-0.8) 10^3/u L Baso # (Auto) 0.1 (0.0-0.1) 10^3/u L Nucleated RBC % (a uto) 0 % Nucleated RBCs # 0.0 /100WBC Sodium 140 (136-145) mmol/L Potassium 3.5 (3.5-5.1) mmol/L Chloride 104 (98-107) mmol/L Carbon Dioxide 20 L (22-29) mmol/L Anion Gap 19.5 H (5-19) BUN 8 (6-20) mg/dL Creatinine 1.2 H (0.5-0.9) mg/dL GFR Calculation 47.2 L (90-130) mL/min Glucose 98 (65-115) mg/dL Calculated Osmolal ity 288 (285-295) mOsm/k g Calcium 9.8 (8.5-10.5) mg/dL Total Bilirubin 0.2 (0.15-1.2) mg/dL AST 10 (0-32) U/L ALT 8 (0-33) U/L Alkaline Phosphata se 142 H (35-105) IU/L Total Protein 6.9 (6.6-8.7) g/dL Albumin 4.0 (3.5-5.2) g/dL Globulin 2.9 (1.3-4.6) g/dL Lipase 22 (13-60) U/L Discharge Plan Discharge Patient Disposition: Home Clinical Impression: Chronic reflux esophagitis Gastritis Qualifiers: Gastritis type: unspecified gastritis Chronicity: unspecified Gastritis bleeding: presence of bleeding unspecified Qualified Code(s): K29.70 - Gastritis, unspecified, without bleeding Condition: Stable Prescriptions: No Action polyethylene glycol 3350 [Miralax] 17 gram/dose powder 17 gm PO DAILY PRN (Reason: constipation) RF: 0 aspirin 81 mg tablet,delayed release (DR/EC) 81 mg PO DAILY RF: 0 buspirone 10 mg tablet 10 mg PO TID Qty: 90 RF: 1 lamotrigine 200 mg tablet 200 mg PO DAILY Qty: 30 RF: 1 lorazepam 0.5 mg tablet 0.5 mg PO DAILY PRN (Reason: Anxiety) 30 Days Qty: 30 RF: 1 quetiapine [Seroquel] 300 mg tablet 300 mg PO BEDTIME Qty: 30 RF: 1 venlafaxine 75 mg capsule,extended release 24hr 75 mg PO BID Qty: 60 RF: 1 Ingrezza 80 mg capsule 80 mg PO DAILY 1 Days RF: 2 sucralfate [Carafate] 100 mg/mL suspension 10 ml PO BID PRN (Reason: chronic reflux) 30 Days Qty: 420 RF: 0 budesonide [Pulmicort] 0.5 mg/2 mL suspension for nebulization 0.5 mg INHALATION BID 30 Days Qty: 120 RF: 2 ipratropium-albuterol 0.5 mg-3 mg(2.5 mg base)/3 mL solution for nebulization See Rx Instructions .ROUTE .COMPLEX Qty: 1620 RF: 3 pantoprazole 40 mg tablet,delayed release (DR/EC) 40 mg PO BID RF: 0 hydroxyzine pamoate 50 mg capsule 50 mg PO TID RF: 0 acetaminophen [Tylenol Arthritis Pain] 650 mg Tablet Extended Release 1,300 mg PO PRN RF: 0 trazodone 100 mg tablet 200 mg PO BEDTIME RF: 0 albuterol sulfate [Ventolin HFA] 90 mcg/actuation Hfa Aerosol Inhaler 2 puff INHALATION 6XD PRN (Reason: Shortness Of Breath) RF: 0 ondansetron HCl [Zofran] 4 mg tablet 4 mg PO QID PRN (Reason: nausea and vomiting) Qty: 14 RF: 0 Discharge Orders: Discharge Order (Routine); Ordered 03/23/20 Ordered By: Delta Mckeon Referrals: Dara Tavera FNP [Primary Care Provider] - Discharge Diet: Advance as tolerated and Clear Liquid Discharge Activity: Resume usual activity Patient Instructions: Gastritis (ED), Diet for Ulcers and Gastritis (ED), Gastroesophageal Reflux Disease (ED) Activity Restrictions/Additional Instructions: Follow-up with your primary care provider and arrange a GI consult as soon as possible for further Discharge Date/Time: 03/23/20 17:09 Coding Level of Care Code ED Product Coordinator for Chg Fwd Exam Comprehensive
[2020-03-23 14:12] LABS: Alanine Aminotransferase 8 U/L (0-33); Alkaline Phosphatase 142 IU/L (35-105); Anion Gap 19.5 (5-19); Aspartate Amino Transferase 10 U/L (0-32); Blood Urea Nitrogen 8 mg/dL (6-20); Calcium 9.8 mg/dL (8.5-10.5); Carbon Dioxide 20 mmol/L (22-29); Chloride 104 mmol/L (98-107); Globulin 2.9 g/dL (1.3-4.6); Glomerular Filtration Rate 47.2 mL/min (90-130); Glucose 98 mg/dL (65-115); Lipase 22 U/L (13-60); Osmolality Calculated 288 mOsm/kg (285-295); Potassium 3.5 mmol/L (3.5-5.1); Sodium 140 mmol/L (136-145); Total Bilirubin 0.2 mg/dL (0.15-1.2); Total Protein 6.9 g/dL (6.6-8.7)
[2020-03-23 14:44] VITALS: BP 129/56; PULSE 76; RESP 14; O2SAT 96
[2020-03-23] MEDS: lidocaine 2% viscous 15 ML, aluminum-mag hydrox-simethicon 30 ML, sucralfate oral liq 1 GM PO (14:46)
[2020-03-23] MEDS: famotidine 20 mg/2 mL INJ 40 MG IVP (15:34)
[2020-03-23] MEDS: lactated ringers 1,000 ML 999 ML IV (15:38)
[2020-03-23 15:40] VITALS: BP 146/77; PULSE 81; RESP 18; O2SAT 94
[2020-03-23 16:39] VITALS: RESP 18; O2SAT 96
[2020-03-23] MEDS: morphine 4 mg/mL SDV 1 mL 2 MG IVP (16:39)
[2020-03-23 16:42] VITALS: BP 161/82; PULSE 82; RESP 18; O2SAT 97
[2020-03-23 17:09] VITALS: BP 156/76; PULSE 71; RESP 18; O2SAT 97
[2020-03-23 20:35] LABS: Add Urine Microscopic? NO
[2020-03-23 20:41] LABS: Bilirubin Urine Neg (Negative); Blood Urine Neg (Negative); Glucose Urine UA Norm (Normal); Ketones Urine Negative (Negative); Leukocyte Esterase Urine Negative (Negative); Nitrate Urine Negative (Negative); Protein Urine Neg (Negative); Specific Gravity, Urine 1.005 (1.005-1.030); Urine Appearance Clear (CLEAR); Urine Color Yellow (Yellow); Urobilinogen Urine Norm (Negative); pH Urine 5 (5-7)
== END 2020-03-23 17:09 | disposition home or self-care (01) ==
PROVIDERS: Nurse Practitioner Family; Emergency Provider Student in an Organized Health Care Education/Training Program; PCP Registered Nurse
DX: K29.70 Gastritis, unspecified, without bleeding (principal); K21.00 Gastro-esophageal reflux disease with esophagitis, without bleeding; Z79.82 Long term (current) use of aspirin; Z87.891 Personal history of nicotine dependence
CPT/HCPCS: 12345; 36415; 71045; 74018; 80053; 81003; 83690; 85025; 96365; 96375; 99283; J2270; J3490

== ENCOUNTER 2020-04-03 15:34 | Emergency (ER) | payer MEDICARE, MEDICAID, SELFPAY ==
[2020-04-03 15:49] VITALS: BMI 33.9
[2020-04-03 16:02] VITALS: BP 138/48; PULSE 91; RESP 18; O2SAT 96
--- NOTE | 2020-04-03 16:27 | ED_ITS ---
Documented by User: AMANDEEP De La Rosa 04/04/20 07:04 HPI - General Adult General: Chief complaint: Abdominal Pain Stated complaint: PAIN POST SURGERY/ TRACHEA STRETCH Time Seen by Provider: 04/03/20 15:46 History of Present Illness: HPI narrative: Patient arrives via ambulance because he said he has been throwing up last couple days. She is having some abdominal pain. She had esophageal stretching done a week ago was told that she had prior pain and some vomiting for couple weeks by her doctor she said Zofran did not seem to be working more she is worried about not keep any fluids down today. MD complaint: Nausea and vomiting Onset (ago): day(s) Location: abdomen Relieving factors: none and other (She did not try her promethazine said Zofran is not working) Associated symptoms: Reports no associated symptoms, nausea and vomiting; Deny chest pain, dyspnea, headache(s) or rash Review of Systems Const: Denies: fever(s), chills or body aches Eyes: Denies: change in vision or blurry vision ENMT: Denies: throat pain or nasal congestion Card: Denies: chest pain or dyspnea on exertion Resp: Denies: dyspnea, productive cough or non-productive cough GI: Reports: abdominal pain (Mild), nausea, vomiting and heartburn; Denies: coffee ground emesis or pain on defecation Musc: Denies: extremity pain Skin/Breast: Denies: rash Neuro: Denies: headache(s) Psych: Denies: anxiety or depression Wilbur/Lymph: Denies: easy bruising PFSH ED PFSH: Medical History (Updated 04/03/20 @ 16:10 by AMANDEEP De La Rosa) Bladder stone Borderline personality disorder Chronic anxiety Chronic back pain greater than 3 months duration Chronic cystitis with hematuria Chronic gastritis without bleeding Foreign body in bladder GERD without esophagitis Infiltrate of lung present on imaging of chest Neurogenic bladder Nicotine dependence, cigarettes, with other nicotine-induced disorders Quit in 2019 Oxygen dependent Restrictive lung disease Schizoaffective disorder, bipolar type Tertiary contraction of esophagus Urgency incontinence Surgical History H/O: hysterectomy History of appendectomy History of breast biopsy History of ureter stent Hx of cholecystectomy S/P bronchoscopy with biopsy Family History Other Asthma Cancer Diabetes Heart disease Social History Smoking and tobacco status: former smoker Quit status (tobacco): has quit using tobacco Year quit tobacco: 2019 - 1PPD x 25 Years Alcohol intake: never Lives independently: Yes Household members: spouse Marital status: Number of children: 3 Current occupational status: disabled History of recent travel: No Current gender identity: Female Female Reproductive History: Date of last menstrual period: 06/19/95 Physical Exam Const: COMMON NORMALS: no acute distress, average body habitus and patient oriented x3 HENMT: COMMON NORMALS: normocephalic HEAD & SCALP: normal to inspection and normocephalic FACE & SINUS: normal facial exam Eye: COMMON NORMALS: conjunctivae normal GENERAL EYE: appearance normal, both eyes and all related structures CONJUNCTIVA: Yes conjunctivae normal Neck/C-Spine: COMMON NORMALS: no JVD Chest: COMMONS NORMALS: normal inspection of the chest Resp: COMMON NORMALS: normal respiratory effort and clear to auscultation bilaterally AUSCULTATION: clear to auscultation bilaterally Cardio: COMMON NORMALS: no JVD, regular rate and regular rhythm RATE: regular rate RHYTHM: regular rhythm GI: COMMON NORMALS: Normal to inspection, nondistended, normoactive bowel sounds present (Epigastric lower pain) PALPATION: Yes Tenderness to palpation present (GI) Extremity: COMMON NORMALS: normal to inspection and full ROM Neuro: COMMON NORMALS: patient oriented x3 Course Vital Signs: Vital signs: Vital Signs Temperature 97.8 F 04/03/20 16:53 Pulse Rate 82 04/03/20 16:53 Respiratory Rate 20 H 04/03/20 16:53 Blood Pressure 138/48 04/03/20 16:53 Pulse Oximetry 96 04/03/20 16:53 Discharge Plan Discharge Patient Disposition: Home Clinical Impression: Vomiting Qualifiers: Vomiting type: psychogenic vomiting Nausea presence: with nausea Qualified Code(s): F50.89 - Other specified eating disorder Condition: Stable Prescriptions: New hydrocodone-acetaminophen 5-325 mg tablet 1 tab PO Q8H PRN (Reason: pain) Qty: 10 RF: 0 No Action polyethylene glycol 3350 [Miralax] 17 gram/dose powder 17 gm PO DAILY PRN (Reason: constipation) RF: 0 aspirin 81 mg tablet,delayed release (DR/EC) 81 mg PO DAILY RF: 0 buspirone 10 mg tablet 10 mg PO TID Qty: 90 RF: 1 lamotrigine 200 mg tablet 200 mg PO DAILY Qty: 30 RF: 1 lorazepam 0.5 mg tablet 0.5 mg PO DAILY PRN (Reason: Anxiety) 30 Days Qty: 30 RF: 1 quetiapine [Seroquel] 300 mg tablet 300 mg PO BEDTIME Qty: 30 RF: 1 venlafaxine 75 mg capsule,extended release 24hr 75 mg PO BID Qty: 60 RF: 1 Ingrezza 80 mg capsule 80 mg PO DAILY 1 Days RF: 2 hydroxyzine pamoate 50 mg capsule 50 mg PO .COMPLEX Qty: 150 RF: 1 sucralfate [Carafate] 100 mg/mL suspension 10 ml PO BID PRN (Reason: chronic reflux) 30 Days Qty: 420 RF: 0 budesonide [Pulmicort] 0.5 mg/2 mL suspension for nebulization 0.5 mg INHALATION BID 30 Days Qty: 120 RF: 2 ipratropium-albuterol 0.5 mg-3 mg(2.5 mg base)/3 mL solution for nebulization See Rx Instructions .ROUTE .COMPLEX Qty: 1620 RF: 3 pantoprazole 40 mg tablet,delayed release (DR/EC) 40 mg PO BID RF: 0 acetaminophen [Tylenol Arthritis Pain] 650 mg Tablet Extended Release 1,300 mg PO PRN RF: 0 trazodone 100 mg tablet 200 mg PO BEDTIME RF: 0 albuterol sulfate [Ventolin HFA] 90 mcg/actuation Hfa Aerosol Inhaler 2 puff INHALATION 6XD PRN (Reason: Shortness Of Breath) RF: 0 ondansetron HCl [Zofran] 4 mg tablet 4 mg PO QID PRN (Reason: nausea and vomiting) Qty: 14 RF: 0 Discharge Orders: Discharge Order (Routine); Ordered 04/03/20 Ordered By: David Guerin Referrals: Dara Tavera FNP [Primary Care Provider] - Discharge Diet: As Directed Discharge Activity: Increase activity as tolerated Activity Restrictions/Additional Instructions: Follow-up with medical provider as directed. Take medications as prescribed. Return to the ER or your medical provider if condition worsens. Please read and understand discharge instructions. If any questions ask please. Follow-up your surgeon did esophageal stretching in 2 to 3 weeks if problems persist contact our office Discharge Date/Time: 04/03/20 16:58 Coding Level of Care Code ED Ambulatory Services Representative for Chg Fwd Exam Comprehensive Documented by User: AMANDEEP Nunez 04/03/20 16:57 HPI - General Adult General: Chief complaint: Abdominal Pain Stated complaint: PAIN POST SURGERY/ TRACHEA STRETCH Time Seen by Provider: 04/03/20 15:46 PFSH ED PFSH: Medical History (Updated 04/03/20 @ 16:10 by AMANDEEP De La Rosa) Bladder stone Borderline personality disorder Chronic anxiety Chronic back pain greater than 3 months duration Chronic cystitis with hematuria Chronic gastritis without bleeding Foreign body in bladder GERD without esophagitis Infiltrate of lung present on imaging of chest Neurogenic bladder Nicotine dependence, cigarettes, with other nicotine-induced disorders Quit in 2019 Oxygen dependent Restrictive lung disease Schizoaffective disorder, bipolar type Tertiary contraction of esophagus Urgency incontinence Surgical History H/O: hysterectomy History of appendectomy History of breast biopsy History of ureter stent Hx of cholecystectomy S/P bronchoscopy with biopsy Family History Other Asthma Cancer Diabetes Heart disease Social History Smoking and tobacco status: former smoker Quit status (tobacco): has quit using tobacco Year quit tobacco: 2019 - 1PPD x 25 Years Alcohol intake: never Lives independently: Yes Household members: spouse Marital status: Number of children: 3 Current occupational status: disabled History of recent travel: No Current gender identity: Female Course ED course: 1700, received patient from AMANDEEP Craballo. awaiting d/c Vital Signs: Vital signs: Vital Signs Temperature 97.8 F 10/16/20 16:53 Pulse Rate 82 04/03/20 16:53 Respiratory Rate 20 H 04/03/20 16:53 Blood Pressure 138/48 04/03/20 16:53 Pulse Oximetry 96 04/03/20 16:53 Discharge Plan Discharge Patient Disposition: Home Clinical Impression: Vomiting Qualifiers: Vomiting type: psychogenic vomiting Nausea presence: with nausea Qualified Code(s): F50.89 - Other specified eating disorder Condition: Stable Prescriptions: New hydrocodone-acetaminophen 5-325 mg tablet 1 tab PO Q8H PRN (Reason: pain) Qty: 10 RF: 0 No Action polyethylene glycol 3350 [Miralax] 17 gram/dose powder 17 gm PO DAILY PRN (Reason: constipation) RF: 0 aspirin 81 mg tablet,delayed release (DR/EC) 81 mg PO DAILY RF: 0 buspirone 10 mg tablet 10 mg PO TID Qty: 90 RF: 1 lamotrigine 200 mg tablet 200 mg PO DAILY Qty: 30 RF: 1 lorazepam 0.5 mg tablet 0.5 mg PO DAILY PRN (Reason: Anxiety) 30 Days Qty: 30 RF: 1 quetiapine [Seroquel] 300 mg tablet 300 mg PO BEDTIME Qty: 30 RF: 1 venlafaxine 75 mg capsule,extended release 24hr 75 mg PO BID Qty: 60 RF: 1 Ingrezza 80 mg capsule 80 mg PO DAILY 1 Days RF: 2 hydroxyzine pamoate 50 mg capsule 50 mg PO .COMPLEX Qty: 150 RF: 1 sucralfate [Carafate] 100 mg/mL suspension 10 ml PO BID PRN (Reason: chronic reflux) 30 Days Qty: 420 RF: 0 budesonide [Pulmicort] 0.5 mg/2 mL suspension for nebulization 0.5 mg INHALATION BID 30 Days Qty: 120 RF: 2 ipratropium-albuterol 0.5 mg-3 mg(2.5 mg base)/3 mL solution for nebulization See Rx Instructions .ROUTE .COMPLEX Qty: 1620 RF: 3 pantoprazole 40 mg tablet,delayed release (DR/EC) 40 mg PO BID RF: 0 acetaminophen [Tylenol Arthritis Pain] 650 mg Tablet Extended Release 1,300 mg PO PRN RF: 0 trazodone 100 mg tablet 200 mg PO BEDTIME RF: 0 albuterol sulfate [Ventolin HFA] 90 mcg/actuation Hfa Aerosol Inhaler 2 puff INHALATION 6XD PRN (Reason: Shortness Of Breath) RF: 0 ondansetron HCl [Zofran] 4 mg tablet 4 mg PO QID PRN (Reason: nausea and vomiting) Qty: 14 RF: 0 Discharge Orders: Discharge Order (Routine); Ordered 04/03/20 Ordered By: David Guerin Referrals: Dara Tavera FNP [Primary Care Provider] - Discharge Diet: As Directed Discharge Activity: Increase activity as tolerated Activity Restrictions/Additional Instructions: Follow-up with medical provider as directed. Take medications as prescribed. Return to the ER or your medical provider if condition worsens. Please read and understand discharge instructions. If any questions ask please. Follow-up your surgeon did esophageal stretching in 2 to 3 weeks if problems persist contact our office Discharge Date/Time: 04/03/20 16:58 Coding Level of Care Code ED Ambulatory Services Representative for Shellie Fwd Exam Comprehensive
[2020-04-03] MEDS: promethazine 25 mg/mL SDV 1 mL IM (16:44)
[2020-04-03] MEDS: lidocaine 2% viscous 15 ML, aluminum-mag hydrox-simethicon 30 ML, sucralfate oral liq 1 GM PO (16:44)
[2020-04-03] MEDS: HYDROcodone-acetaminophen 7.5-325 mg Tablet 1 TAB PO (16:44)
[2020-04-03 16:53] VITALS: BP 138/48; PULSE 82; RESP 20; TEMP 36.6; O2SAT 96
== END 2020-04-03 16:58 | disposition home or self-care (01) ==
PROVIDERS: Emergency Provider Nurse Practitioner Family; PCP Registered Nurse
DX: F50.89 Other specified eating disorder (principal); Z79.82 Long term (current) use of aspirin; Z87.891 Personal history of nicotine dependence
CPT/HCPCS: 12345; 96372; 99281; 99283; J2550

== ENCOUNTER 2020-04-05 10:07 | Emergency (ER) | payer MEDICARE, MEDICAID, SELFPAY ==
[2020-04-05 10:10] VITALS: BP 112/59; PULSE 84; RESP 16; TEMP 36.7; O2SAT 99; BMI 33.9
--- NOTE | 2020-04-05 10:35 | W.ED.GENADLT ---
HPI - General Adult General: Chief complaint: General Medical Stated complaint: ESOPHAGEAL PAIN Time Seen by Provider: 04/05/20 10:08 History of Present Illness: HPI narrative: Patient arise complained that her pain medicines not working more said she is no longer having vomiting and a promethazine help her with this says she is eating fine but she does have abdominal pain in the same place doubles her over at times no fever chills no diarrhea no blood anywhere. MD complaint: Abdominal discomfort since having esophagus stretched Onset (ago): day(s) Location: abdomen Radiation: non-radiation Severity: moderate Quality: stabbing and aching Pain Consistency: intermittent Relieving factors: medication Associated symptoms: Reports no associated symptoms; Deny chest pain, dyspnea, headache(s), nausea, rash or vomiting Treatments prior to arrival: none Review of Systems Const: Denies: fever(s), chills or body aches Eyes: Denies: change in vision or blurry vision ENMT: Denies: throat pain or nasal congestion Card: Denies: chest pain or dyspnea on exertion Resp: Denies: dyspnea, productive cough or non-productive cough GI: Reports: abdominal pain; Denies: nausea or vomiting Musc: Denies: extremity pain Skin/Breast: Denies: rash Neuro: Denies: headache(s) Psych: Denies: anxiety or depression Wilbur/Lymph: Denies: easy bruising PFSH ED PFSH: Medical History (Updated 04/05/20 @ 10:42 by AMANDEEP De La Rosa) Bladder stone Borderline personality disorder Chronic anxiety Chronic back pain greater than 3 months duration Chronic cystitis with hematuria Chronic gastritis without bleeding Foreign body in bladder GERD without esophagitis Infiltrate of lung present on imaging of chest Neurogenic bladder Nicotine dependence, cigarettes, with other nicotine-induced disorders Quit in 2019 Oxygen dependent Restrictive lung disease Schizoaffective disorder, bipolar type Tertiary contraction of esophagus Urgency incontinence Surgical History H/O: hysterectomy History of appendectomy History of breast biopsy History of ureter stent Hx of cholecystectomy S/P bronchoscopy with biopsy Family History Other Asthma Cancer Diabetes Heart disease Social History Smoking and tobacco status: former smoker Quit status (tobacco): has quit using tobacco Year quit tobacco: 2019 - 1PPD x 25 Years Alcohol intake: never Lives independently: Yes Household members: spouse Marital status: Number of children: 3 Current occupational status: disabled History of recent travel: No Current gender identity: Female Female Reproductive History: Date of last menstrual period: 06/19/95 Physical Exam Const: COMMON NORMALS: no acute distress, average body habitus and patient oriented x3 HENMT: COMMON NORMALS: normocephalic HEAD & SCALP: normal to inspection and normocephalic FACE & SINUS: normal facial exam Eye: COMMON NORMALS: conjunctivae normal GENERAL EYE: appearance normal, both eyes and all related structures CONJUNCTIVA: Yes conjunctivae normal Neck/C-Spine: COMMON NORMALS: no JVD Chest: COMMONS NORMALS: normal inspection of the chest Resp: COMMON NORMALS: normal respiratory effort and clear to auscultation bilaterally AUSCULTATION: clear to auscultation bilaterally Cardio: COMMON NORMALS: no JVD, regular rate and regular rhythm RATE: regular rate RHYTHM: regular rhythm GI: COMMON NORMALS: Normal to inspection, nondistended, normoactive bowel sounds present AUSCULTATION: Yes normoactive bowel sounds PALPATION: Yes Tenderness to palpation present (GI) (Epigastric area) Extremity: COMMON NORMALS: normal to inspection and full ROM Neuro: COMMON NORMALS: patient oriented x3 Course Vital Signs: Vital signs: Vital Signs Temperature 98.0 F 04/05/20 10:10 Pulse Rate 84 04/05/20 10:10 Respiratory Rate 17 04/05/20 11:00 Blood Pressure 112/59 04/05/20 10:10 Pulse Oximetry 99 04/05/20 10:10 Discharge Plan Discharge Patient Disposition: Home Clinical Impression: Chronic anxiety, Borderline personality disorder, Chronic reflux esophagitis Condition: Stable Prescriptions: New 16.2-0.1037 -0.0194 mg tablet 1 tab PO TID PRN (Reason: indigestion) Qty: 14 RF: 0 No Action polyethylene glycol 3350 [Miralax] 17 gram/dose powder 17 gm PO DAILY PRN (Reason: constipation) RF: 0 aspirin 81 mg tablet,delayed release (DR/EC) 81 mg PO DAILY RF: 0 buspirone 10 mg tablet 10 mg PO TID Qty: 90 RF: 1 lamotrigine 200 mg tablet 200 mg PO DAILY Qty: 30 RF: 1 lorazepam 0.5 mg tablet 0.5 mg PO DAILY PRN (Reason: Anxiety) 30 Days Qty: 30 RF: 1 quetiapine [Seroquel] 300 mg tablet 300 mg PO BEDTIME Qty: 30 RF: 1 venlafaxine 75 mg capsule,extended release 24hr 75 mg PO BID Qty: 60 RF: 1 Ingrezza 80 mg capsule 80 mg PO DAILY 1 Days RF: 2 hydroxyzine pamoate 50 mg capsule 50 mg PO .COMPLEX Qty: 150 RF: 1 sucralfate [Carafate] 100 mg/mL suspension 10 ml PO BID PRN (Reason: chronic reflux) 30 Days Qty: 420 RF: 0 budesonide [Pulmicort] 0.5 mg/2 mL suspension for nebulization 0.5 mg INHALATION BID 30 Days Qty: 120 RF: 2 ipratropium-albuterol 0.5 mg-3 mg(2.5 mg base)/3 mL solution for nebulization See Rx Instructions .ROUTE .COMPLEX Qty: 1620 RF: 3 hydrocodone-acetaminophen 5-325 mg tablet 1 tab PO Q8H PRN (Reason: pain) Qty: 10 RF: 0 pantoprazole 40 mg tablet,delayed release (DR/EC) 40 mg PO BID RF: 0 acetaminophen [Tylenol Arthritis Pain] 650 mg Tablet Extended Release 1,300 mg PO PRN RF: 0 trazodone 100 mg tablet 200 mg PO BEDTIME RF: 0 albuterol sulfate [Ventolin HFA] 90 mcg/actuation Hfa Aerosol Inhaler 2 puff INHALATION 6XD PRN (Reason: Shortness Of Breath) RF: 0 ondansetron HCl [Zofran] 4 mg tablet 4 mg PO QID PRN (Reason: nausea and vomiting) Qty: 14 RF: 0 Discharge Orders: Discharge Order (Routine); Ordered 04/05/20 Ordered By: David Guerin Referrals: Dara Tavera FNP [Primary Care Provider] - Discharge Diet: Advance as tolerated Discharge Activity: Resume usual activity Activity Restrictions/Additional Instructions: Follow-up with medical provider as directed. Take medications as prescribed. Return to the ER or your medical provider if condition worsens. Please read and understand discharge instructions. If any questions ask please. Call your surgeon who performed your esophageal stretching tomorrow and talk to them about your discomfort that you have experienced. Coding Level of Care Code ED Animal Husbandry Teacher for [place] Fwd Exam Comprehensive
[2020-04-05] MEDS: promethazine 25 mg/mL SDV 1 mL IM (10:59)
[2020-04-05 11:00] VITALS: RESP 17
== END 2020-04-05 11:00 | disposition home or self-care (01) ==
LOC: ER 05-21 10:37
PROVIDERS: Emergency Provider Nurse Practitioner Family; PCP Registered Nurse
DX: K21.00 Gastro-esophageal reflux disease with esophagitis, without bleeding (principal); F60.3 Borderline personality disorder; F41.9 Anxiety disorder, unspecified; Z79.82 Long term (current) use of aspirin; Z87.891 Personal history of nicotine dependence
CPT/HCPCS: 12345; 96372; 99281; J2550

== ENCOUNTER → 2020-04-06 07:25 | Outpatient (BNVA) | payer MEDICARE, MEDICAID, SELFPAY | PROVIDERS: PCP Registered Nurse; Visit Provider Nurse Practitioner | DX: F60.3 Borderline personality disorder (principal); F25.0 Schizoaffective disorder, bipolar type | CPT/HCPCS: 99213 ==

== ENCOUNTER 2020-04-14 14:25 | Inpatient (IN) | payer MEDICARE, MEDICAID, SELFPAY ==
[2020-04-14] VITALS (7 sets, daily range): BP systolic 107–117; BP diastolic 56–81; PULSE 75–99; RESP 16–20; TEMP 36.6–36.9; O2SAT 90–98; BMI 33.6
--- NOTE | 2020-04-14 14:30 | W.ED.PSYCH ---
HPI - Psych General: Chief Complaint: Psychiatric Symptoms Stated Complaint: PSYCH EVAL Time Seen by Provider: 04/14/20 14:27 Source: patient and EMS Mode of arrival: EMS Limitations: no limitations History of Present Illness: HPI Narrative: 54-year-old female who is well-known to the ER states she been having suicidal thoughts for last 2 days. She states she has been in the hospital multiple times for vomiting and she just had increased depression is now having suicidal thoughts. She denies any specific plan. She denies any worsening improving factors. complaint: suicidal ideation Onset (ago): day(s) Associated symptoms: Reports depression and suicidal ideation Review of Systems Const: Denies: fever(s), chills, body aches or change in appetite Eyes: Denies: blurry vision or eye discomfort ENMT: Denies: throat pain or dental pain Card: Denies: chest pain Resp: Denies: dyspnea GI: Denies: abdominal pain, nausea, vomiting or diarrhea : Denies: dysuria Musc: Denies: neck pain or back pain Skin/Breast: Denies: rash Neuro: Denies: headache(s) Psych: Reports: depression and suicidal ideation Wilbur/Lymph: Denies: easy bruising All/Imm: Denies: urticaria PFSH ED PFSH: Medical History Bladder stone Borderline personality disorder Chronic anxiety Chronic back pain greater than 3 months duration Chronic cystitis with hematuria Chronic gastritis without bleeding Foreign body in bladder GERD without esophagitis Infiltrate of lung present on imaging of chest Neurogenic bladder Nicotine dependence, cigarettes, with other nicotine-induced disorders Quit in 2019 Oxygen dependent Restrictive lung disease Schizoaffective disorder, bipolar type Tertiary contraction of esophagus Urgency incontinence Surgical History H/O: hysterectomy History of appendectomy History of breast biopsy History of ureter stent Hx of cholecystectomy S/P bronchoscopy with biopsy Family History Other Asthma Cancer Diabetes Heart disease Social History Smoking and tobacco status: former smoker Quit status (tobacco): has quit using tobacco Year quit tobacco: 2019 1PPD x 25 Years Alcohol intake: never Lives independently: Yes Household members: spouse Marital status: Number of children: 3 Current occupational status: disabled History of recent travel: No Current gender identity: Female Female Reproductive History: Date of last menstrual period: 06/19/95 Physical Exam Const: COMMON NORMALS: no acute distress, patient oriented x3 and healthy appearing HENMT: COMMON NORMALS: normocephalic and atraumatic HEAD & SCALP: normocephalic and atraumatic Eye: COMMON NORMALS: Equal, round and reactive pupils present and EOMs intact bilaterally PUPIL: Yes Equal, round and reactive pupils present Neck/C-Spine: COMMON NORMALS: full ROM and supple Chest: COMMONS NORMALS: normal inspection of the chest and normal palpation of entire chest wall Resp: COMMON NORMALS: normal respiratory effort, No retractions, No use of accessory muscles and clear to auscultation bilaterally AUSCULTATION: clear to auscultation bilaterally Cardio: COMMON NORMALS: regular rate, regular rhythm and No murmurs present (Cardio) RATE: regular rate RHYTHM: regular rhythm GI: COMMON NORMALS: Normal to inspection, nondistended, normoactive bowel sounds present, Soft to palpation, non-tender and no masses PALPATION: Yes Soft to palpation Extremity: COMMON NORMALS: normal to inspection and full ROM Neuro: COMMON NORMALS: patient oriented x3, moves all extremities and no focal motor deficits Psych: COMMON NORMALS: mental status grossly normal, Normal thought process present and cooperative MOOD & AFFECT: Yes depressed mood THOUGHT PROCESS: Normal thought process present THOUGHT CONTENT: Yes Suicidality present Skin: COMMON NORMALS: no rashes or lesions noted and no wounds GENERAL SKIN EXAM: no rashes or lesions noted MDM - Psych MDM Narrative: Medical decision making narrative: Latesha presents here with suicidal ideation. Patient is well-appearing here and is medically cleared. I spoke to psychiatrist Dr. Curiel and will admit. Lab Data: Labs: Lab Results 04/14/20 04/14/20 04/14/20 Range/Units 16:07 16:07 16:15 WBC 14.2 H (4.0-10.0) 10^3/ uL RBC 4.31 (4.1-5.3) 10^6/u L Hgb 12.0 (11.5-15.3) g/dL Hct 37.1 (37.0-47.0) % MCV 86.1 (81-99) fL MCH 27.8 L (28.0-34.0) pg MCHC 32.3 (30.0-36.0) g/dL RDW 16.6 H (12.1-15.1) % Plt Count 223 (130-400) 10^3/c mm MPV 10.3 (7.4-10.4) fL Neut % (Auto) 73.4 % Lymph % (Auto) 15.9 % [place] % (Auto) 7.3 % Eos % (Auto) 2.2 % Baso % (Auto) 0.8 % Neut # (Auto) 10.41 H (1.8-7.7) 10^3/u L Lymph # (Auto) 2.3 (0.8-4.8) 10^3/u L [place] # (Auto) 1.0 H (0.2-0.9) 10^3/u L Eos # (Auto) 0.3 (0.0-0.8) 10^3/u L Baso # (Auto) 0.1 (0.0-0.1) 10^3/u L Nucleated RBC % (a uto) 0 % Nucleated RBCs # 0.0 /100WBC Sodium 135 L (136-145) mmol/L Potassium 3.4 L (3.5-5.1) mmol/L Chloride 102 (98-107) mmol/L Carbon Dioxide 23 (22-29) mmol/L Anion Gap 13.4 (5-19) BUN 9 (6-20) mg/dL Creatinine 0.8 (0.5-0.9) mg/dL GFR Calculation 75.3 L (90-130) mL/min Glucose 120 H (65-115) mg/dL Calculated Osmolal ity 280 L (285-295) mOsm/k g Calcium 9.0 (8.5-10.5) mg/dL Total Bilirubin 0.2 (0.15-1.2) mg/dL AST 10 (0-32) U/L ALT 10 (0-33) U/L Alkaline Phosphata se 101 (35-105) IU/L Total Protein 6.1 L (6.6-8.7) g/dL Albumin 3.4 L (3.5-5.2) g/dL Globulin 2.7 (1.3-4.6) g/dL Salicylates < 0.3 L (3-10) mg/dL Acetaminophen < 5.0 L (10-30) ug/mL Ethyl Alcohol < 10 (0-10) mg/dL SARS-CoV-2 Ag (Rap id) Negative (Negative) Discharge Plan Discharge Patient Disposition: Admitted As Inpatient Clinical Impression: Suicidal ideation Condition: Stable Referrals: Dara Tavera FNP [Primary Care Provider] - Coding Level of Care Code ED Test Clerk for Chg Fwd Exam Comprehensive
[2020-04-14 16:22] LABS: Basophils # 0.1 10^3/uL (0.0-0.1); Basophils % 0.8 %; Eosinophils # 0.3 10^3/uL (0.0-0.8); Eosinophils % 2.2 %; Hematocrit 37.1 % (37.0-47.0); Lymphocytes # 2.3 10^3/uL (0.8-4.8); Lymphocytes % 15.9 %; Mean Corpuscular HGB Conc 32.3 g/dL (30.0-36.0); Mean Corpuscular Hemoglobin 27.8 pg (28.0-34.0); Mean Corpuscular Volume 86.1 fL (81-99); Mean Platelet Volume 10.3 fL (7.4-10.4); Monocytes % 7.3 %; Neutrophils # 10.41 10^3/uL (1.8-7.7); Neutrophils % 73.4 %; Nucleated Red Blood Cells % 0 %; Platelet Count 223 10^3/cmm (130-400); Red Blood Count 4.31 10^6/uL (4.1-5.3); Red Cell Distribution Width 16.6 % (12.1-15.1); White Blood Count 14.2 10^3/uL (4.0-10.0)
[2020-04-14 16:47] LABS: Acetaminophen < 5.0 ug/mL (10-30); Alanine Aminotransferase 10 U/L (0-33); Albumin Level 3.4 g/dL (3.5-5.2); Alcohol Level < 10 mg/dL (0-10); Alkaline Phosphatase 101 IU/L (35-105); Anion Gap 13.4 (5-19); Aspartate Amino Transferase 10 U/L (0-32); Blood Urea Nitrogen 9 mg/dL (6-20); Carbon Dioxide 23 mmol/L (22-29); Chloride 102 mmol/L (98-107); Globulin 2.7 g/dL (1.3-4.6); Glomerular Filtration Rate 75.3 mL/min (90-130); Glucose 120 mg/dL (65-115); Osmolality Calculated 280 mOsm/kg (285-295); Potassium 3.4 mmol/L (3.5-5.1); Salicylate < 0.3 mg/dL (3-10); Sodium 135 mmol/L (136-145); Total Bilirubin 0.2 mg/dL (0.15-1.2); Total Protein 6.1 g/dL (6.6-8.7)
[2020-04-14 17:09] LABS: SARS Covid-2 Antigen Negative (Negative)
[2020-04-14 17:20] LABS: Amphetamines Screen Urine Negative (Negative); Barbiturates Screen Urine Negative (Negative); Benzodiazepines Screen Urine Positive (Negative); Cocaine Screen Urine Negative (Negative); Opiate Screen Urine Positive (Negative); PCP Screen Urine Negative (Negative); THC Screen Urine Negative (Negative)
[2020-04-14] MEDS: BuSPIRONE 10 mg Tablet PO (20:16)
[2020-04-14] MEDS: trazodone 100 mg Tablet 200 MG PO (20:16)
[2020-04-14] MEDS: quetiapine 300 mg Tablet PO (20:16)
[2020-04-14] MEDS: budesonide 0.5 mg/2 mL Neb INHALATION (20:19)
[2020-04-14] MEDS: ipratropium-albuterol 3 mL Neb NEBULIZER (20:20)
[2020-04-15 06:00] VITALS: BP 143/69; PULSE 77; RESP 16; TEMP 36.8; O2SAT 92
[2020-04-15] MEDS: BuSPIRONE 10 mg Tablet PO (08:36)
[2020-04-15] MEDS: budesonide 0.5 mg/2 mL Neb INHALATION (09:14)
[2020-04-15 09:16] VITALS: PULSE 88; RESP 18; O2SAT 92
--- NOTE | 2020-04-15 10:35 | PM.SDS ---
Short Stay Summary Providers Date of Admit/Discharge: 04/15/20 Attending Provider: Sravan Curiel MD Primary Care Provider: AMANDEEP Barclay Chief Complaint: PSYCH EVAL HPI History of Present Illness I was just getting overwhelmed. I feel like getting my life and that happens. I feel much better now. Latesha Wilhelm is a 54 year old female who is well-known to the staff here at [facility]. She says that she has been struggling with gastrointestinal pain for many years. This past month has been more stressful. She has had multiple procedures at a hospital in [place]. They have come up with no definitive diagnosis or treatment. On the day of admission, she was at home becoming increasingly despondent. She became overwhelmed. In the past, she has come to the hospital and been admitted with significant benefit for just a brief stay. She is active in outpatient individual psychotherapy and saw her psychiatrist on 03/09/2020. The summary of that visit is listed below. She had been doing well at that time. No medication changes are indicated at this time. By the time she was evaluated by this physician in the next day, the patient was free of suicidal ideation. She was looking forward to going home and spending time with her friends and taking walks with her . She denied suicidal or homicidal ideation. She denied the presence of auditory or visual hallucinations. She denied side effects to her medications and specifically requested that no changes be made. HPI Narrative: 54-year-old female who is well-known to the ER states she been having suicidal thoughts for last 2 days. She states she has been in the hospital multiple times for vomiting and she just had increased depression is now having suicidal thoughts. She denies any specific plan. She denies any worsening improving factors. Laboratory Tests 04/14/20 04/14/20 15:00 16:07 Urine Opiates Screen Positive H Ur Barbiturates Screen Negative Ur Phencyclidine Scrn Negative Ur Amphetamines Screen Negative U Benzodiazepines Scrn Positive H Urine Cocaine Screen Negative U Marijuana (THC) Screen Negative Ethyl Alcohol < 10 03/09/2020 outpatient note Assessment: Mentally is doing well. Physically had been struggling with abd pain/ nausea and vomiting. Plan: Continue Seroquel 300mg at bedtime Continue Effexor XR 75mg twice daily Continue Buspar 10mg three times daily Continue Hydroxyzine 50mg three times daily Continue Lamictal 200mg daily Continue Trazodone 200mg at bedtime Continue Ingrezza 80mg daily Continue Ativan 0.5mg daily as needed for anxiety A prescription for 30 days with 1 refill was sent to her pharmacy Follow up in 1 month. Client instructed if symptoms worsen or the need to be seen sooner to call the clinic for an earlier appointment. Home Meds/Allergies Home Medications and Allergies Home Medications Medication Instructions Recorded Confirmed Type polyethylene glycol 3350 17 17 gm PO DAILY PRN gm 06/13/19 04/14/20 History gram/dose oral powder pantoprazole 40 mg PO BID 03/02/20 04/14/20 History acetaminophen [Tylenol Arthritis 1,300 mg PO PRN 03/11/20 04/14/20 History Pain] trazodone 200 mg PO BEDTIME 03/11/20 04/14/20 History albuterol sulfate [Ventolin HFA] 2 puff INHALATION 6XD PRN 03/19/20 04/14/20 History oxycodone 5 mg PO Q8H PRN 04/14/20 04/14/20 History prochlorperazine maleate 5 mg PO TID 04/14/20 04/14/20 History Allergies Allergy/AdvReac Type Severity Reaction Status Date / Time Penicillins Allergy Severe ALGY-Anaphy Verified 04/06/20 08:42 laxis sulfamethoxazole Allergy Severe ALGY-Hives Verified 04/06/20 08:42 [From Bactrim] Tetracyclines Allergy Severe ALGY-Hives Verified 04/06/20 08:42 gabapentin [From Neurontin] Allergy Intermediate ADR-Halluci Verified 04/06/20 08:42 nating ketorolac [From Toradol] Allergy Intermediate ALGY-Rash Verified 04/06/20 08:42 lithium Allergy Intermediate ADR-Halluci Verified 04/06/20 08:42 nating fentanyl Allergy Mild rash Verified 04/06/20 08:42 adhesive tape Allergy Rash Verified 04/06/20 08:42 codeine Allergy GI Verified 04/06/20 08:42 haloperidol [From Haldol] Allergy unknown Verified 04/06/20 08:42 metoclopramide [From Reglan] Allergy ADR-Shakine Verified 04/06/20 08:42 ss quetiapine [From Seroquel] Allergy Unknown Verified 04/06/20 08:42 trimethoprim [From Bactrim] Allergy ALGY-Hives Verified 04/06/20 08:42 ziprasidone [From Geodon] AdvReac Severe ADR-Halluci Verified 04/06/20 08:42 nating influenza virus vac qs AdvReac Mild ADR-Nausea Verified 04/06/20 08:42 19-(4 yr up) cell derived [From Flucelvax Quad 7828-8304 (PF)] risperidone [From Risperdal] AdvReac ADR-Halluci Verified 04/06/20 08:42 nating PFSH Acute PFSH: Medical History Bladder stone Borderline personality disorder Chronic anxiety Chronic back pain greater than 3 months duration Chronic cystitis with hematuria Chronic gastritis without bleeding Foreign body in bladder GERD without esophagitis Infiltrate of lung present on imaging of chest Neurogenic bladder Nicotine dependence, cigarettes, with other nicotine-induced disorders Quit in 2019 Oxygen dependent Restrictive lung disease Schizoaffective disorder, bipolar type Tertiary contraction of esophagus Urgency incontinence Surgical History H/O: hysterectomy History of appendectomy History of breast biopsy History of ureter stent Hx of cholecystectomy S/P bronchoscopy with biopsy Family History Other Asthma Cancer Diabetes Heart disease Social History Smoking and tobacco status: former smoker Quit status (tobacco): has quit using tobacco Year quit tobacco: 2019 - PD x 25 Years Alcohol intake: never Lives independently: Yes Household members: spouse Marital status: Number of children: 3 Current occupational status: disabled History of recent travel: No Current gender identity: Female Female Reproductive History: Date of last menstrual period: 06/19/95 Vitals/I&O/Wt Last Vital Signs Temp 98.3 F 04/15/20 06:00 Pulse 88 04/15/20 09:16 Resp 18 04/15/20 09:16 BP 143/69 04/15/20 06:00 Pulse Ox 92 04/15/20 09:16 Weight last 48 hrs Weight 91.626 kg Physical Exam Narrative: EXAM NARRATIVE: Mental Status Exam: Appearance: hygiene is fair; no gross neurological deficits., gait is unremarkable; AIMS=0 Speech: Speech is of normal rate and rhythm and easily understood. Thought processes: Thought processes are abstract. Judgment is adequate for safety. Associations: intact Psychotic processes: There is no indication of guarding or paranoia. There is no attention to the internal stimuli. Auditory and visual hallucinations are denied. Judgment: Insight is fair. Problem solving skills are adequate for safety. Orientation: The patient is oriented to person, place time and situation. Memory: no deficits noted in immediate, intermediate, or remote spheres. Attention: The patient is alert and interpersonally engaged. Language: Verbalizations are coherent. Fund of knowledge: Fund of knowledge is adequate. Affect/Mood: Affect is consistent with a euthymic mood. pt denies suicidal ideation Affective range is appropriate. Psychosis: perception unimpaired except through cognitive distortion; reality testing intact. Hospital Course Hospital Course: The patient was placed in the adult psychiatric unit with supportive environment of nursing staff available for her assistance on the 24-hour basis. She was entered into the full array of individual and group therapies as part of the psychiatric unit protocol. As is her pattern, after 24 hours in the hospital, she received benefit from the process of crisis intervention. After one night, she felt rejuvenated and her coping skills improved to the point where she felt that she was ready to return home. Discharge was requested by the patient and as she was not an imminent risk to self or others was granted. Discharge Summary: Pateint was discharged to home. No medication changes were made. She agreed to continue with outpatient care at [facility]. Diagnoses at Discharge Discharge Diagnosis (1) Adjustment disorder with depressed mood: Status: Acute (2) Suicidal ideation: Status: Acute Discharge Plan Discharge Patient Disposition: Home Condition: Stable Prescriptions: Continued polyethylene glycol 3350 [Miralax] 17 gram/dose powder 17 gm PO DAILY PRN (Reason: constipation) RF: 0 buspirone 10 mg tablet 10 mg PO TID Qty: 90 RF: 1 lamotrigine 200 mg tablet 200 mg PO DAILY Qty: 30 RF: 1 lorazepam 0.5 mg tablet 0.5 mg PO DAILY PRN (Reason: Anxiety) 30 Days Qty: 30 RF: 1 quetiapine [Seroquel] 300 mg tablet 300 mg PO BEDTIME Qty: 30 RF: 1 venlafaxine 75 mg capsule,extended release 24hr 75 mg PO BID Qty: 60 RF: 1 Ingrezza 80 mg capsule 80 mg PO DAILY 1 Days RF: 2 hydroxyzine pamoate 50 mg capsule 50 mg PO .COMPLEX Qty: 150 RF: 1 sucralfate [Carafate] 100 mg/mL suspension 10 ml PO BID PRN (Reason: chronic reflux) 30 Days Qty: 420 RF: 0 budesonide [Pulmicort] 0.5 mg/2 mL suspension for nebulization 0.5 mg INHALATION BID 30 Days Qty: 120 RF: 2 ipratropium-albuterol 0.5 mg-3 mg(2.5 mg base)/3 mL solution for nebulization See Rx Instructions .ROUTE .COMPLEX Qty: 1620 RF: 3 pantoprazole 40 mg tablet,delayed release (DR/EC) 40 mg PO BID RF: 0 acetaminophen [Tylenol Arthritis Pain] 650 mg Tablet Extended Release 1,300 mg PO PRN RF: 0 trazodone 100 mg tablet 200 mg PO BEDTIME RF: 0 albuterol sulfate [Ventolin HFA] 90 mcg/actuation Hfa Aerosol Inhaler 2 puff INHALATION 6XD PRN (Reason: Shortness Of Breath) RF: 0 ondansetron HCl [Zofran] 4 mg tablet 4 mg PO QID PRN (Reason: nausea and vomiting) Qty: 14 RF: 0 prochlorperazine maleate 5 mg tablet 5 mg PO TID RF: 0 oxycodone 5 mg tablet 5 mg PO Q8H PRN (Reason: Pain) RF: 0 Discharge Orders: Discharge Order (Routine); Ordered 04/15/20 Ordered By: Sravan Curiel Referrals: aDra Tavera, MACHINE OPERATOR SLITTER TECHNICIAN [Primary Care Provider] - Patient Instructions: Anxiety (DC) Attestations Medical Necessity Statement*: Patient is cleared for discharge. Time Spent in Patient Care*: greater than 30 min Status at Discharge: Cognitive status at discharge: cognitively intact, Behavioral status at discharge: cooperative, Quality Metrics Clinical Quality Measures: During this hospital stay, did patient experience: None Coding Level of Care Code Acute Pier Hand Helper for Shellie Fwfrank Diagnoses Adjustment disorder with depressed mood F43.21 Suicidal ideation R45.851
[2020-04-15 10:39] VITALS: PULSE 88; RESP 18; O2SAT 92
== END 2020-04-15 12:15 | disposition home or self-care (01) | DRG 881 ==
LOC: ER 17:40 → NP 17:45
PROVIDERS: Emergency Medicine; Admitting Provider Psychiatry & Neurology Psychiatry; PCP Registered Nurse; Visit Provider Psychiatry & Neurology Psychiatry
DX: F43.21 Adjustment disorder with depressed mood (principal); R45.851 Suicidal ideations; G89.29 Other chronic pain; F60.3 Borderline personality disorder; Z99.81 Dependence on supplemental oxygen; M54.9 Dorsalgia, unspecified; R10.9 Unspecified abdominal pain; K21.9 Gastro-esophageal reflux disease without esophagitis; Z87.891 Personal history of nicotine dependence
CPT/HCPCS: 12345; 80053; 80306; 80307; 85025; 87426; 94640; 99284; J7626

== ENCOUNTER → 2020-04-22 08:27 | Outpatient (BNVA) | payer MEDICARE, MEDICAID, SELFPAY | PROVIDERS: PCP Registered Nurse; Visit Provider Nurse Practitioner | DX: F25.0 Schizoaffective disorder, bipolar type (principal) | CPT/HCPCS: 99213 ==

== ENCOUNTER 2020-04-23 18:24 | Emergency (ER) | payer MEDICARE, MEDICAID, SELFPAY ==
[2020-04-23 18:27] VITALS: BP 125/72; PULSE 91; RESP 16; TEMP 37.1; O2SAT 95; BMI 32.8
--- NOTE | 2020-04-23 18:32 | W.ED.ABDPA2 ---
HPI - Abdominal Pain General: Chief Complaint: Abdominal Pain Stated Complaint: ABDOMINAL PAIN Time Seen by Provider: 04/23/20 18:25 Source: patient and EMS Mode of arrival: EMS Limitations: no limitations History of Present Illness: HPI narrative: 54-year-old female who is very well-known to the ER as a history of chronic abdominal pain. She states she believes she has pancreatitis she has been having pain for the last 3 days. She had some nausea no vomiting. She denies any fever. Patient denies any worsening improving factors. Patient is currently resting comfortably in the room. Associated Symptoms: Reports nausea; Denies chills, dysuria and fever(s) Related Data: Date of Last Menstrual Period: 06/19/95 Review of Systems Const: Denies: fever(s), chills, body aches or change in appetite Eyes: Denies: blurry vision or eye discomfort ENMT: Denies: throat pain or dental pain Card: Denies: chest pain Resp: Denies: dyspnea GI: Reports: abdominal pain and nausea : Denies: dysuria Musc: Denies: neck pain or back pain Skin/Breast: Denies: rash Neuro: Denies: headache(s) Psych: Denies: depression Wilbur/Lymph: Denies: easy bruising All/Imm: Denies: urticaria PFSH ED PFSH: Medical History Bladder stone Borderline personality disorder Chronic anxiety Chronic back pain greater than 3 months duration Chronic cystitis with hematuria Chronic gastritis without bleeding Foreign body in bladder GERD without esophagitis Infiltrate of lung present on imaging of chest Neurogenic bladder Nicotine dependence, cigarettes, with other nicotine-induced disorders Quit in 2019 Oxygen dependent Restrictive lung disease Schizoaffective disorder, bipolar type Tertiary contraction of esophagus Urgency incontinence Surgical History H/O: hysterectomy History of appendectomy History of breast biopsy History of ureter stent Hx of cholecystectomy S/P bronchoscopy with biopsy Family History Other Asthma Cancer Diabetes Heart disease Social History Smoking and tobacco status: former smoker Quit status (tobacco): has quit using tobacco Year quit tobacco: 2020 - 1PPD x 25 Years Alcohol intake: never Lives independently: Yes Household members: spouse Marital status: Number of children: 3 Current occupational status: disabled History of recent travel: No Current gender identity: Female Female Reproductive History: Date of last menstrual period: 06/19/95 Physical Exam Const: COMMON NORMALS: no acute distress, patient oriented x3 and healthy appearing HENMT: COMMON NORMALS: normocephalic and atraumatic HEAD & SCALP: normocephalic and atraumatic Eye: COMMON NORMALS: Equal, round and reactive pupils present and EOMs intact bilaterally PUPIL: Yes Equal, round and reactive pupils present Neck/C-Spine: COMMON NORMALS: full ROM and supple Chest: COMMONS NORMALS: normal inspection of the chest and normal palpation of entire chest wall Resp: COMMON NORMALS: normal respiratory effort, No retractions, No use of accessory muscles and clear to auscultation bilaterally AUSCULTATION: clear to auscultation bilaterally Cardio: COMMON NORMALS: regular rate, regular rhythm and No murmurs present (Cardio) RATE: regular rate RHYTHM: regular rhythm GI: COMMON NORMALS: Normal to inspection, nondistended, normoactive bowel sounds present, Soft to palpation, non-tender and no masses PALPATION: Yes Soft to palpation Extremity: COMMON NORMALS: normal to inspection and full ROM Neuro: COMMON NORMALS: patient oriented x3, moves all extremities and no focal motor deficits Psych: COMMON NORMALS: mental status grossly normal, Normal thought process present and cooperative THOUGHT PROCESS: Normal thought process present Skin: COMMON NORMALS: no rashes or lesions noted and no wounds GENERAL SKIN EXAM: no rashes or lesions noted Course Vital Signs: Vital signs: Vital Signs Temperature 98.8 F 04/23/20 18:27 Pulse Rate 88 04/23/20 19:07 Respiratory Rate 18 04/23/20 19:07 Blood Pressure 118/51 04/23/20 19:07 Pulse Oximetry 97 04/23/20 19:07 MDM - Abdominal Pain MDM Narrative: Medical decision making narrative: Latesha presents with abdominal pain that is chronic in nature. She is well-appearing here and is stable for discharge. Her lab work here is normal and exam is benign. She is to return if worsening. She understands and agrees to plan. Lab Data: Labs: Lab Results 04/23/20 04/23/20 Range/Units 18:40 18:40 WBC 11.7 H (4.0-10.0) 10^3/ uL RBC 4.37 (4.1-5.3) 10^6/u L Hgb 12.1 (11.5-15.3) g/dL Hct 37.4 (37.0-47.0) % MCV 85.6 (81-99) fL MCH 27.7 L (28.0-34.0) pg MCHC 32.4 (30.0-36.0) g/dL RDW 17.5 H (12.1-15.1) % Plt Count 278 (130-400) 10^3/c mm MPV 9.8 (7.4-10.4) fL Neut % (Auto) 68.5 % Lymph % (Auto) 20.2 % Burleigh % (Auto) 6.9 % Eos % (Auto) 3.3 % Baso % (Auto) 0.8 % Neut # (Auto) 8.00 H (1.8-7.7) 10^3/u L Lymph # (Auto) 2.4 (0.8-4.8) 10^3/u L [place]leigh # (Auto) 0.8 (0.2-0.9) 10^3/u L Eos # (Auto) 0.4 (0.0-0.8) 10^3/u L Baso # (Auto) 0.1 (0.0-0.1) 10^3/u L Nucleated RBC % (a uto) 0 % Nucleated RBCs # 0.0 /100WBC Sodium 140 (136-145) mmol/L Potassium 3.2 L (3.5-5.1) mmol/L Chloride 106 (98-107) mmol/L Carbon Dioxide 23 (22-29) mmol/L Anion Gap 14.2 (5-19) BUN 10 (6-20) mg/dL Creatinine 1.0 H (0.5-0.9) mg/dL GFR Calculation 58.2 L (90-130) mL/min Glucose 129 H (65-115) mg/dL Calculated Osmolal ity 291 (285-295) mOsm/k g Calcium 9.0 (8.5-10.5) mg/dL Total Bilirubin 0.2 (0.15-1.2) mg/dL AST 9 (0-32) U/L ALT 7 (0-33) U/L Alkaline Phosphata se 115 H (35-105) IU/L Total Protein 6.3 L (6.6-8.7) g/dL Albumin 3.7 (3.5-5.2) g/dL Globulin 2.6 (1.3-4.6) g/dL Lipase 36 (13-60) U/L Discharge Plan Discharge Patient Disposition: Home Clinical Impression: Abdominal pain Qualifiers: Abdominal location: generalized Qualified Code(s): R10.84 - Generalized abdominal pain Condition: Stable Prescriptions: No Action polyethylene glycol 3350 [Miralax] 17 gram/dose powder 17 gm PO DAILY PRN (Reason: constipation) RF: 0 hydroxyzine pamoate 50 mg capsule 50 mg PO .COMPLEX Qty: 150 RF: 1 sucralfate [Carafate] 100 mg/mL suspension 10 ml PO BID PRN (Reason: chronic reflux) 30 Days Qty: 420 RF: 0 buspirone 10 mg tablet 10 mg PO TID Qty: 90 RF: 1 lamotrigine 200 mg tablet 200 mg PO DAILY Qty: 30 RF: 1 lorazepam 0.5 mg tablet 0.5 mg PO DAILY PRN (Reason: Anxiety) 30 Days Qty: 30 RF: 1 quetiapine [Seroquel] 300 mg tablet 300 mg PO BEDTIME Qty: 30 RF: 1 Ingrezza 80 mg capsule 80 mg PO DAILY 1 Days RF: 2 venlafaxine 75 mg capsule,extended release 24hr 75 mg PO BID Qty: 60 RF: 1 budesonide [Pulmicort] 0.5 mg/2 mL suspension for nebulization 0.5 mg INHALATION BID 30 Days Qty: 120 RF: 2 ipratropium-albuterol 0.5 mg-3 mg(2.5 mg base)/3 mL solution for nebulization See Rx Instructions .ROUTE .COMPLEX Qty: 1620 RF: 3 trazodone 100 mg tablet 200 mg PO BEDTIME Qty: 60 RF: 0 pantoprazole 40 mg tablet,delayed release (DR/EC) 40 mg PO BID RF: 0 acetaminophen [Tylenol Arthritis Pain] 650 mg Tablet Extended Release 1,300 mg PO PRN RF: 0 albuterol sulfate [Ventolin HFA] 90 mcg/actuation Hfa Aerosol Inhaler 2 puff INHALATION 6XD PRN (Reason: Shortness Of Breath) RF: 0 ondansetron HCl [Zofran] 4 mg tablet 4 mg PO QID PRN (Reason: nausea and vomiting) Qty: 14 RF: 0 prochlorperazine maleate 5 mg tablet 5 mg PO TID RF: 0 oxycodone 5 mg tablet 5 mg PO Q8H PRN (Reason: Pain) RF: 0 Discharge Orders: Discharge Order (Routine); Ordered 04/23/20 Ordered By: Damien Urbina Referrals: Dara Tavera, HOT HEAD MACHINE OPERATOR [Primary Care Provider] - 1-3 days Discharge Diet: Advance as tolerated Discharge Activity: Resume usual activity Patient Instructions: Abdominal Pain (ED) Coding Level of Care Code ED Cad Cam Programmer for Shellie Fwd Exam Comprehensive
[2020-04-23 18:40] VITALS: BP 125/72; PULSE 91; RESP 20; O2SAT 96
[2020-04-23] MEDS: diphenhydrAMINE 50 mg/mL SDV 1mL IM (18:45)
[2020-04-23] MEDS: promethazine 25 mg/mL SDV 1 mL IM (18:45)
[2020-04-23 18:53] LABS: Basophils # 0.1 10^3/uL (0.0-0.1); Basophils % 0.8 %; Eosinophils # 0.4 10^3/uL (0.0-0.8); Eosinophils % 3.3 %; Hematocrit 37.4 % (37.0-47.0); Hemoglobin 12.1 g/dL (11.5-15.3); Lymphocytes # 2.4 10^3/uL (0.8-4.8); Lymphocytes % 20.2 %; Mean Corpuscular HGB Conc 32.4 g/dL (30.0-36.0); Mean Corpuscular Hemoglobin 27.7 pg (28.0-34.0); Mean Corpuscular Volume 85.6 fL (81-99); Mean Platelet Volume 9.8 fL (7.4-10.4); Monocytes # 0.8 10^3/uL (0.2-0.9); Monocytes % 6.9 %; Neutrophils % 68.5 %; Nucleated Red Blood Cells % 0 %; Platelet Count 278 10^3/cmm (130-400); Red Blood Count 4.37 10^6/uL (4.1-5.3); Red Cell Distribution Width 17.5 % (12.1-15.1); White Blood Count 11.7 10^3/uL (4.0-10.0)
[2020-04-23 19:07] VITALS: BP 118/51; PULSE 88; RESP 18; O2SAT 97
[2020-04-23 19:23] LABS: Alanine Aminotransferase 7 U/L (0-33); Albumin Level 3.7 g/dL (3.5-5.2); Alkaline Phosphatase 115 IU/L (35-105); Anion Gap 14.2 (5-19); Aspartate Amino Transferase 9 U/L (0-32); Blood Urea Nitrogen 10 mg/dL (6-20); Carbon Dioxide 23 mmol/L (22-29); Chloride 106 mmol/L (98-107); Globulin 2.6 g/dL (1.3-4.6); Glomerular Filtration Rate 58.2 mL/min (90-130); Glucose 129 mg/dL (65-115); Lipase 36 U/L (13-60); Osmolality Calculated 291 mOsm/kg (285-295); Potassium 3.2 mmol/L (3.5-5.1); Sodium 140 mmol/L (136-145); Total Bilirubin 0.2 mg/dL (0.15-1.2); Total Protein 6.3 g/dL (6.6-8.7)
[2020-04-23 19:48] VITALS: BP 130/65; PULSE 84; RESP 18; TEMP 36.4; O2SAT 97
== END 2020-04-23 19:50 | disposition home or self-care (01) ==
PROVIDERS: Emergency Provider Emergency Medicine; PCP Registered Nurse
DX: R10.84 Generalized abdominal pain (principal); Z87.891 Personal history of nicotine dependence
CPT/HCPCS: 12345; 80053; 83690; 85025; 96372; 99281; 99283; J1200; J2550

== ENCOUNTER 2020-05-06 18:53 | Emergency (ER) | payer MEDICARE, MEDICAID, SELFPAY ==
[2020-05-06 18:54] VITALS: BP 144/82; PULSE 108; RESP 20; TEMP 36.6; O2SAT 98; BMI 32.9
--- NOTE | 2020-05-06 18:55 | XR_ITS ---
WS: [id number] Exam: XR chest 1V portable [id number] Date/Time of Exam: 05/06/2020 6:58 PM Reason For Exam: Weakness Comparison 03/23/2020. Findings: The lungs are clear and fully expanded. Costophrenic angles are sharp. No infiltrates. Bronchovascula r relief appears normal. Cardiac silhouette is unremarkable. Bony elements are intact. XR/XR chest 1V portable [id number] IMPRESSION: Unremarkable chest radiograph.
--- NOTE | 2020-05-06 19:07 | ED_ITS ---
HPI - General Adult General: Chief complaint: General Medical Stated complaint: FATIGUE, BODY ACHES, CHILLS Time Seen by Provider: 05/06/20 18:55 Source: patient Mode of arrival: ambulatory Limitations: no limitations History of Present Illness: HPI narrative: Latesha is a nice 54-year-old female who comes in with a 2-day history of diffuse whole muscle aches and pains. She has a headache, dry cough, subjective fever and loss of sense of taste and loss of sense of smell. Patient believes she has the COVID-19 virus. She states that nothing makes her symptoms better and any type of exertion or movement makes them worse. She denies any chest pain. Patient states the symptoms are severe. Associated symptoms: Reports headache(s) and malaise; Deny chest pain, confusion, dyspnea, nausea, rash, palpitations, syncope or vomiting Review of Systems Const: Reports: fever(s), chills, body aches, fatigue and malaise Eyes: Denies: change in vision, blurry vision, photophobia, eye discomfort, eye discharge, eye redness or yellow eyes ENMT: Reports: other (See HPI); Denies: throat pain, odynophagia, hoarseness, swelling of lips/tongue, ear or mastoid pain, ear discharge, change in hearing or nasal discharge Card: Denies: chest pain, palpitations, irregular heart rhythm, edema, lightheadedness, syncope, pre-syncope, dyspnea on exertion or orthopnea Resp: Reports: non-productive cough; Denies: dyspnea, productive cough, wheezing, hemoptysis or chest congestion GI: Denies: abdominal pain, nausea, vomiting, hematemesis, coffee ground emesis, heartburn, diarrhea, constipation, GI cramping, hematochezia or melena : Denies: flank pain, dysuria, urinary frequency, urinary urgency or hematuria Musc: Denies: neck pain, back pain, extremity pain, extremity swelling, joint swelling, joint redness, joint warmth or joint stiffness Skin/Breast: Denies: rash, pruritus, erythema, skin pain or skin tenderness Neuro: Reports: headache(s); Denies: numbness in extremities, weakness in extremities, sensory changes, lack of coordination, difficulty walking, dizziness, vertigo, confusion, Slurred speech present or seizure-like activity Wilbur/Lymph: Denies: easy bruising, easy bleeding, petechiae, purpura or enlarged lymph nodes All/Imm: Denies: urticaria, throat swelling, tongue swelling, facial swelling or acute wheezing PFSH ED PFSH: Medical History Bladder stone Borderline personality disorder Chronic anxiety Chronic back pain greater than 3 months duration Chronic cystitis with hematuria Chronic gastritis without bleeding Chronic nausea Foreign body in bladder GERD without esophagitis Infiltrate of lung present on imaging of chest Neurogenic bladder Nicotine dependence, cigarettes, with other nicotine-induced disorders Quit in 2019 Oxygen dependent Restrictive lung disease Schizoaffective disorder, bipolar type Tertiary contraction of esophagus Urgency incontinence Surgical History H/O: hysterectomy History of appendectomy History of breast biopsy History of ureter stent Hx of cholecystectomy S/P bronchoscopy with biopsy Family History Other Asthma Cancer Diabetes Heart disease Social History Smoking and tobacco status: former smoker Quit status (tobacco): has quit using tobacco Year quit tobacco: 2019 1PPD x 25 Years Alcohol intake: never Lives independently: Yes Household members: spouse Marital status: Number of children: 3 Current occupational status: disabled History of recent travel: No Current gender identity: Female Female Reproductive History: Date of last menstrual period: 06/19/95 Physical Exam Const: COMMON NORMALS: no acute distress, patient oriented x3, no limitations and alert GENERAL APPEARANCE: cooperative HENMT: COMMON NORMALS: normocephalic, atraumatic, external ears normal, EAC's normal and Normal external nose present HEAD & SCALP: normal to inspection, normocephalic and atraumatic FACE & SINUS: normal facial exam and face symmetric NOSE: Normal external nose present and Normal nares present EXTERNAL EAR: Yes external ears normal EXTERNAL AUDITORY CANAL: EAC's normal MOUTH: Normal oral and palatal mucosa present, lip normal and tongue normal Eye: COMMON NORMALS: Equal, round and reactive pupils present and conjunctivae normal GENERAL EYE: appearance normal, both eyes and all related structures ALIGNMENT: Yes alignment normal PERIORBITAL: periorbital findings normal EYELID: eyelids normal CONJUNCTIVA: Yes conjunctivae normal SCLERA: sclerae normal PUPIL: Yes Equal, round and reactive pupils present Neck/C-Spine: COMMON NORMALS: full ROM, no lymphadenopathy, supple, no meningeal signs and no JVD GENERAL: Yes normal visual inspection and Yes trachea midline Chest: COMMONS NORMALS: normal inspection of the chest and normal palpation of entire chest wall Resp: COMMON NORMALS: normal respiratory effort, No retractions, No use of accessory muscles and clear to auscultation bilaterally EFFORT & INSPECTION: Yes able to speak in complete sentences and Yes symmetric chest movement AUSCULTATION: clear to auscultation bilaterally, no crackles, no rales, no rhonchi and no wheezes Cardio: COMMON NORMALS: no JVD, regular rate, regular rhythm, S1 normal heart sound present and S2 normal heart sound present RATE: regular rate RHYTHM: regular rhythm HEART SOUNDS: S1 normal heart sound present, S2 normal heart sound present, no click, no gallops, no murmurs and no rubs GI: COMMON NORMALS: Soft to palpation and No hepatosplenomegaly present PALPATION: Yes Soft to palpation, No Tenderness to palpation present (GI), No Guarding due to palpation present (GI), No Rigid due to palpation, Yes No hepatosplenomegaly present, No Hernia present, No Palpable mass present and No Pulsatile mass present : COMMON NORMALS: Yes no CVA tenderness BLADDER/KIDNEY EXAM: Yes no CVA tenderness EXTERNAL FEMALE EXAM: No Hernia present Back/Pelvis: COMMON NORMALS: no CVA tenderness, thoracic and lumbar spine normal to inspection, no thoracic nor lumbar tenderness and thoraco-lumbar ROM normal Extremity: COMMON NORMALS: normal to inspection, full ROM, capillary refill normal, no joint enlargement, no clubbing, cyanosis or edema and no calf tenderness Neuro: COMMON NORMALS: patient oriented x3, CN's II-XII intact bilaterally, moves all extremities, no focal motor deficits and no sensory deficits noted SENSORIUM/ORIENTATION: Yes alert MENINGEAL SIGNS: Yes no meningeal signs SPEECH: speech normal Psych: COMMON NORMALS: mental status grossly normal, Normal thought process present, cooperative, normal affect, speech normal and activity/motor behavior normal SPEECH: Yes normal speech THOUGHT PROCESS: Normal thought process present Skin: COMMON NORMALS: no rashes or lesions noted, turgor normal, no jaundice, no petechiae and no mottling GENERAL SKIN EXAM: no rashes or lesions noted and turgor normal Course Vital Signs: Vital signs: Vital Signs Temperature 97.8 F 05/06/20 18:54 Pulse Rate 108 H 05/06/20 18:54 Respiratory Rate 20 H 05/06/20 18:54 Blood Pressure 144/82 05/06/20 18:54 Pulse Oximetry 98 05/06/20 18:54 MDM - General Adult MDM Narrative: Medical decision making narrative: Patient's chest x-ray is normal there is no sign of acute pulmonary findings there. Patient's labs are unremarkable except for a slightly elevated white count but the patient has no fever. Patient is well-known to me and commonly has an elevated white count. I see no sign of acute focal infection but at this time the patient does have some rhonchi on exam. I will go ahead and discharge her home on a Z-Germain. Patient will return to the ER if she worsens and she is very reliable to do so if she gets worse. She denies having any questions or concerns she agrees to follow-up as directed or return here if needed. Lab Data: Attestation: I reviewed the patient's lab results. Labs: Lab Results 05/06/20 05/06/20 05/06/20 Range/Units 19:14 19:14 19:36 WBC 18.1 H (4.0-10.0) 10^3/ uL RBC 4.57 (4.1-5.3) 10^6/u L Hgb 12.8 (11.5-15.3) g/dL Hct 40.1 (37.0-47.0) % MCV 87.7 (81-99) fL MCH 28.0 (28.0-34.0) pg MCHC 31.9 (30.0-36.0) g/dL RDW 17.3 H (12.1-15.1) % Plt Count 234 (130-400) 10^3/c mm MPV 10.3 (7.4-10.4) fL Neut % (Auto) 80.1 % Lymph % (Auto) 12.0 % [place] % (Auto) 5.4 % Eos % (Auto) 1.6 % Baso % (Auto) 0.6 % Neut # (Auto) 14.49 H (1.8-7.7) 10^3/u L Lymph # (Auto) 2.2 (0.8-4.8) 10^3/u L [place] # (Auto) 1.0 H (0.2-0.9) 10^3/u L Eos # (Auto) 0.3 (0.0-0.8) 10^3/u L Baso # (Auto) 0.1 (0.0-0.1) 10^3/u L Nucleated RBC % (a uto) 0 % Nucleated RBCs # 0.0 /100WBC Sodium 136 (136-145) mmol/L Potassium 3.6 (3.5-5.1) mmol/L Chloride 102 (98-107) mmol/L Carbon Dioxide 22 (22-29) mmol/L Anion Gap 15.6 (5-19) BUN 15 (6-20) mg/dL Creatinine 1.0 H (0.5-0.9) mg/dL GFR Calculation 58.2 L (90-130) mL/min Glucose 114 (65-115) mg/dL Calculated Osmolal ity 284 L (285-295) mOsm/k g Calcium 9.5 (8.5-10.5) mg/dL Magnesium 2.0 (1.7-2.3) mg/dL Total Bilirubin 0.2 (0.15-1.2) mg/dL AST 11 (0-32) U/L ALT 7 (0-33) U/L Alkaline Phosphata se 132 H (35-105) IU/L Total Protein 6.0 L (6.6-8.7) g/dL Albumin 4.1 (3.5-5.2) g/dL Globulin 1.9 (1.3-4.6) g/dL Urine Color (Yellow) Urine Appearance (CLEAR) Urine pH (5-7) Ur Specific Gravit y (1.005-1.030) Urine Protein (Negative) Urine Glucose (UA) (Normal) Urine Ketones (Negative) Urine Blood (Negative) Urine Nitrate (Negative) Urine Bilirubin (Negative) Urine Urobilinogen (Negative) mg/dL Ur Leukocyte Stephanie ase (Negative) Influenza Type A A g Negative (Negative) Influenza Type B A g Negative (Negative) SARS-CoV-2 Ag (Rap id) (Negative) 05/06/20 05/06/20 Range/Units 19:36 20:10 WBC (4.0-10.0) 10^3/ uL RBC (4.1-5.3) 10^6/u L Hgb (11.5-15.3) g/dL Hct (37.0-47.0) % MCV (81-99) fL MCH (28.0-34.0) pg MCHC (30.0-36.0) g/dL RDW (12.1-15.1) % Plt Count (130-400) 10^3/c mm MPV (7.4-10.4) fL Neut % (Auto) % Lymph % (Auto) % [place] % (Auto) % Eos % (Auto) % Baso % (Auto) % Neut # (Auto) (1.8-7.7) 10^3/u L Lymph # (Auto) (0.8-4.8) 10^3/u L [place] # (Auto) (0.2-0.9) 10^3/u L Eos # (Auto) (0.0-0.8) 10^3/u L Baso # (Auto) (0.0-0.1) 10^3/u L Nucleated RBC % (a uto) % Nucleated RBCs # /100WBC Sodium (136-145) mmol/L Potassium (3.5-5.1) mmol/L Chloride (98-107) mmol/L Carbon Dioxide (22-29) mmol/L Anion Gap (5-19) BUN (6-20) mg/dL Creatinine (0.5-0.9) mg/dL GFR Calculation (90-130) mL/min Glucose (65-115) mg/dL Calculated Osmolal ity (285-295) mOsm/k g Calcium (8.5-10.5) mg/dL Magnesium (1.7-2.3) mg/dL Total Bilirubin (0.15-1.2) mg/dL AST (0-32) U/L ALT (0-33) U/L Alkaline Phosphata se (35-105) IU/L Total Protein (6.6-8.7) g/dL Albumin (3.5-5.2) g/dL Globulin (1.3-4.6) g/dL Urine Color Yellow (Yellow) Urine Appearance Clear (CLEAR) Urine pH 5.0 (5-7) Ur Specific Gravit y 1.005 (1.005-1.030) Urine Protein Neg (Negative) Urine Glucose (UA) Norm (Normal) Urine Ketones Negative (Negative) Urine Blood Neg (Negative) Urine Nitrate Negative (Negative) Urine Bilirubin Neg (Negative) Urine Urobilinogen Norm (Negative) mg/dL Ur Leukocyte Stephanie ase Negative (Negative) Influenza Type A A g (Negative) Influenza Type B A g (Negative) SARS-CoV-2 Ag (Rap id) Negative (Negative) Imaging Data^: CXR: Attestation: I personally reviewed and interpreted this imaging study as follows: My impression: No acute cardiopulmonary findings. Discharge Plan Discharge Patient Disposition: Home Clinical Impression: Acute viral syndrome Condition: Stable Prescriptions: New Zithromax Z-Germain 250 mg tablet See Rx Instructions .ROUTE .COMPLEX Qty: 6 RF: 0 No Action polyethylene glycol 3350 [Miralax] 17 gram/dose powder 17 gm PO DAILY PRN (Reason: constipation) RF: 0 buspirone 10 mg tablet 10 mg PO TID Qty: 90 RF: 1 lamotrigine 200 mg tablet 200 mg PO DAILY Qty: 30 RF: 1 lorazepam 0.5 mg tablet 0.5 mg PO DAILY PRN (Reason: Anxiety) 30 Days Qty: 30 RF: 1 quetiapine [Seroquel] 300 mg tablet 300 mg PO BEDTIME Qty: 30 RF: 1 Ingrezza 80 mg capsule 80 mg PO DAILY 1 Days RF: 2 venlafaxine 75 mg capsule,extended release 24hr 75 mg PO BID Qty: 60 RF: 1 scopolamine base 1 mg over 3 days patch 3 day 1 patch transdermal Q3D PRN (Reason: nausea and vomiting) Qty: 1 RF: 0 budesonide [Pulmicort] 0.5 mg/2 mL suspension for nebulization 0.5 mg INHALATION BID 30 Days Qty: 120 RF: 2 ipratropium-albuterol 0.5 mg-3 mg(2.5 mg base)/3 mL solution for nebulization See Rx Instructions .ROUTE .COMPLEX Qty: 1620 RF: 3 trazodone 100 mg tablet 200 mg PO BEDTIME Qty: 60 RF: 0 pantoprazole 40 mg tablet,delayed release (DR/EC) 40 mg PO BID RF: 0 acetaminophen [Tylenol Arthritis Pain] 650 mg Tablet Extended Release 1,300 mg PO PRN RF: 0 albuterol sulfate [Ventolin HFA] 90 mcg/actuation Hfa Aerosol Inhaler 2 puff INHALATION Q4H PRN (Reason: Shortness Of Breath) RF: 0 ondansetron HCl [Zofran] 4 mg tablet 4 mg PO QID PRN (Reason: nausea and vomiting) Qty: 14 RF: 0 prochlorperazine maleate 5 mg tablet 5 mg PO TID PRN (Reason: UNKNOWN) RF: 0 prednisone 10 mg tablet See Rx Instructions .ROUTE .COMPLEX RF: 0 sucralfate 1 gram tablet 1 g PO QID RF: 0 Aspir-81 81 mg Tablet,Delayed Release (Dr/Ec) 81 mg PO DAILY RF: 0 hydroxyzine pamoate 50 mg capsule See Rx Instructions .ROUTE .COMPLEX RF: 0 Discharge Orders: Discharge Order (Routine); Ordered 05/06/20 Ordered By: Ann Morgan Referrals: Dara Tavera FNP [Primary Care Provider] - 1-3 days Discharge Diet: Advance as tolerated Discharge Activity: Increase activity as tolerated Patient Instructions: Acute Bronchitis (ED), Viral Syndrome (ED) Activity Restrictions/Additional Instructions: Please return to the ER immediately for any of the signs or symptoms listed on your discharge instruction sheets, worsening/changing of your symptoms, you are not getting better as quickly as expected, or for ANY other cause or concerns. Coding Level of Care Code ED Manager Steel for Shellie Fwd Exam Comprehensive
[2020-05-06 19:27] LABS: Basophils # 0.1 10^3/uL (0.0-0.1); Basophils % 0.6 %; Eosinophils # 0.3 10^3/uL (0.0-0.8); Eosinophils % 1.6 %; Hematocrit 40.1 % (37.0-47.0); Hemoglobin 12.8 g/dL (11.5-15.3); Lymphocytes # 2.2 10^3/uL (0.8-4.8); Mean Corpuscular HGB Conc 31.9 g/dL (30.0-36.0); Mean Corpuscular Volume 87.7 fL (81-99); Mean Platelet Volume 10.3 fL (7.4-10.4); Monocytes % 5.4 %; Neutrophils # 14.49 10^3/uL (1.8-7.7); Neutrophils % 80.1 %; Nucleated Red Blood Cells % 0 %; Platelet Count 234 10^3/cmm (130-400); Red Blood Count 4.57 10^6/uL (4.1-5.3); Red Cell Distribution Width 17.3 % (12.1-15.1); White Blood Count 18.1 10^3/uL (4.0-10.0)
[2020-05-06] MEDS: sodium chloride 0.9% 1,000 ML 999 ML IV (19:41)
[2020-05-06 20:26] LABS: Add Urine Microscopic? NO
[2020-05-06 20:36] LABS: Influenza A by IFA Negative (Negative); Influenza B by IFA Negative (Negative); SARS Covid-2 Antigen Negative (Negative)
[2020-05-06 20:50] LABS: Bilirubin Urine Neg (Negative); Blood Urine Neg (Negative); Glucose Urine UA Norm (Normal); Ketones Urine Negative (Negative); Leukocyte Esterase Urine Negative (Negative); Nitrate Urine Negative (Negative); Protein Urine Neg (Negative); Specific Gravity, Urine 1.005 (1.005-1.030); Urine Appearance Clear (CLEAR); Urine Color Yellow (Yellow); Urobilinogen Urine Norm (Negative)
[2020-05-06 21:00] LABS: Alanine Aminotransferase 7 U/L (0-33); Albumin Level 4.1 g/dL (3.5-5.2); Alkaline Phosphatase 132 IU/L (35-105); Anion Gap 15.6 (5-19); Aspartate Amino Transferase 11 U/L (0-32); Blood Urea Nitrogen 15 mg/dL (6-20); Calcium 9.5 mg/dL (8.5-10.5); Carbon Dioxide 22 mmol/L (22-29); Chloride 102 mmol/L (98-107); Globulin 1.9 g/dL (1.3-4.6); Glomerular Filtration Rate 58.2 mL/min (90-130); Glucose 114 mg/dL (65-115); Osmolality Calculated 284 mOsm/kg (285-295); Potassium 3.6 mmol/L (3.5-5.1); Sodium 136 mmol/L (136-145); Total Bilirubin 0.2 mg/dL (0.15-1.2)
[2020-05-06 21:48] VITALS: BP 148/83; PULSE 95; RESP 17; O2SAT 96
== END 2020-05-06 21:48 | disposition home or self-care (01) ==
PROVIDERS: Emergency Provider Emergency Medicine; PCP Registered Nurse
DX: B34.9 Viral infection, unspecified (principal); Z79.4 Long term (current) use of insulin; Z87.891 Personal history of nicotine dependence
CPT/HCPCS: 12345; 71045; 80053; 81003; 83735; 85025; 87426; 87804; 99282; 99283; J7030

== ENCOUNTER → 2020-05-12 00:01 | Outpatient (BNVA) | payer MEDICARE, MEDICAID, SELFPAY | PROVIDERS: PCP Registered Nurse; Visit Provider Registered Nurse | DX: E04.1 Nontoxic single thyroid nodule (principal) | CPT/HCPCS: 83516; 85025 ==

== ENCOUNTER → 2020-05-19 07:44 | Outpatient (BNVA) | payer MEDICARE, MEDICAID, SELFPAY | PROVIDERS: PCP Registered Nurse; Visit Provider Nurse Practitioner | DX: F25.0 Schizoaffective disorder, bipolar type (principal); F60.3 Borderline personality disorder | CPT/HCPCS: 99214 ==

== ENCOUNTER 2020-05-19 11:36 | Emergency (ER) | payer MEDICARE, MEDICAID, SELFPAY ==
[2020-05-19 11:37] VITALS: BP 129/85; PULSE 90; O2SAT 95; BMI 32.9
--- NOTE | 2020-05-19 11:56 | ED_ITS ---
HPI - Abdominal Pain General: Chief Complaint: Abdominal Pain Stated Complaint: FLANK PAIN Time Seen by Provider: 05/19/20 11:51 Source: patient and EMS Mode of arrival: EMS Limitations: no limitations History of Present Illness: HPI narrative: 54-year-old female who is very well-known to the ER and has chronic abdominal pain. States she been having right-sided abdominal pain over the last 2 days. She has had a cholecystectomy. States pain is sharp in nature rates a 5 out of 10. She denies any worsening improving factors. She had some nausea with no vomiting. She is resting comfortably here. Associated Symptoms: Reports nausea; Denies chills, dysuria and fever(s) Related Data: Date of Last Menstrual Period: 06/19/95 Review of Systems Const: Denies: fever(s), chills, body aches or change in appetite Eyes: Denies: blurry vision or eye discomfort ENMT: Denies: throat pain or dental pain Card: Denies: chest pain Resp: Denies: dyspnea GI: Reports: abdominal pain and nausea : Denies: dysuria Musc: Denies: neck pain or back pain Skin/Breast: Denies: rash Neuro: Denies: headache(s) Psych: Denies: depression Wilbur/Lymph: Denies: easy bruising All/Imm: Denies: urticaria PFSH ED PFSH: Medical History Bladder stone Borderline personality disorder Chronic anxiety Chronic back pain greater than 3 months duration Chronic cystitis with hematuria Chronic gastritis without bleeding Chronic nausea Foreign body in bladder GERD without esophagitis Infiltrate of lung present on imaging of chest Neurogenic bladder Nicotine dependence, cigarettes, with other nicotine-induced disorders Quit in 2019 Oxygen dependent Restrictive lung disease Schizoaffective disorder, bipolar type Tertiary contraction of esophagus Urgency incontinence Surgical History H/O: hysterectomy History of appendectomy History of breast biopsy History of ureter stent Hx of cholecystectomy S/P bronchoscopy with biopsy Family History Other Asthma Cancer Diabetes Heart disease Social History Smoking and tobacco status: former smoker Quit status (tobacco): has quit using tobacco Year quit tobacco: 2019 - 1PPD x 25 Years Alcohol intake: never Lives independently: Yes Household members: spouse Marital status: Number of children: 3 Current occupational status: disabled History of recent travel: No Current gender identity: Female Female Reproductive History: Date of last menstrual period: 06/19/95 Physical Exam Const: COMMON NORMALS: no acute distress, patient oriented x3 and healthy appearing HENMT: COMMON NORMALS: normocephalic and atraumatic HEAD & SCALP: normocephalic and atraumatic Eye: COMMON NORMALS: Equal, round and reactive pupils present and EOMs intact bilaterally PUPIL: Yes Equal, round and reactive pupils present Neck/C-Spine: COMMON NORMALS: full ROM and supple Chest: COMMONS NORMALS: normal inspection of the chest and normal palpation of entire chest wall Resp: COMMON NORMALS: normal respiratory effort, No retractions, No use of accessory muscles and clear to auscultation bilaterally AUSCULTATION: clear to auscultation bilaterally Cardio: COMMON NORMALS: regular rate, regular rhythm and No murmurs present (Cardio) RATE: regular rate RHYTHM: regular rhythm GI: COMMON NORMALS: Normal to inspection, nondistended, normoactive bowel sounds present, Soft to palpation, non-tender and no masses PALPATION: Yes Soft to palpation Extremity: COMMON NORMALS: normal to inspection and full ROM Neuro: COMMON NORMALS: patient oriented x3, moves all extremities and no focal motor deficits Psych: COMMON NORMALS: mental status grossly normal, Normal thought process present and cooperative THOUGHT PROCESS: Normal thought process present Skin: COMMON NORMALS: no rashes or lesions noted and no wounds GENERAL SKIN EXAM: no rashes or lesions noted Course Vital Signs: Vital signs: Vital Signs Pulse Rate 87 05/19/20 14:04 Respiratory Rate 15 05/19/20 14:04 Blood Pressure 139/91 05/19/20 14:04 Pulse Oximetry 99 05/19/20 14:04 MDM - Abdominal Pain MDM Narrative: Medical decision making narrative: Latesha presents here with abdominal pain that is chronic in nature. She is well-appearing here abdominal exam is benign. Patient's lab work here is normal as well. She is stable for discharge and is to follow-up with PCP and return if worsening. Lab Data: Labs: Lab Results 05/19/20 05/19/20 05/19/20 Range/Units 12:25 12:50 12:50 WBC 7.5 (4.0-10.0) 10^3/ uL RBC 4.83 (4.1-5.3) 10^6/u L Hgb 13.7 (11.5-15.3) g/dL Hct 42.8 (37.0-47.0) % MCV 88.6 (81-99) fL MCH 28.4 (28.0-34.0) pg MCHC 32.0 (30.0-36.0) g/dL RDW 17.2 H (12.1-15.1) % Plt Count 229 (130-400) 10^3/c mm MPV 9.9 (7.4-10.4) fL Neut % (Auto) 57.7 % Lymph % (Auto) 29.4 % [place] % (Auto) 8.6 % Eos % (Auto) 2.9 % Baso % (Auto) 1.1 % Neut # (Auto) 4.31 (1.8-7.7) 10^3/u L Lymph # (Auto) 2.2 (0.8-4.8) 10^3/u L [place] # (Auto) 0.6 (0.2-0.9) 10^3/u L Eos # (Auto) 0.2 (0.0-0.8) 10^3/u L Baso # (Auto) 0.1 (0.0-0.1) 10^3/u L Nucleated RBC % (a uto) 0 % Nucleated RBCs # 0.0 /100WBC Sodium 138 (136-145) mmol/L Potassium 4.1 (3.5-5.1) mmol/L Chloride 103 (98-107) mmol/L Carbon Dioxide 22 (22-29) mmol/L Anion Gap 17.1 (5-19) BUN 12 (6-20) mg/dL Creatinine 1.0 H (0.5-0.9) mg/dL GFR Calculation 58.2 L (90-130) mL/min Glucose 101 (65-115) mg/dL Calculated Osmolal ity 286 (285-295) mOsm/k g Calcium 9.8 (8.5-10.5) mg/dL Total Bilirubin 0.2 (0.15-1.2) mg/dL AST 10 (0-32) U/L ALT 7 (0-33) U/L Alkaline Phosphata se 151 H (35-105) IU/L Total Protein 6.7 (6.6-8.7) g/dL Albumin 4.1 (3.5-5.2) g/dL Globulin 2.6 (1.3-4.6) g/dL Lipase 24 (13-60) U/L Urine Color Yellow (Yellow) Urine Appearance Cloudy (CLEAR) Urine pH 5 (5-7) Ur Specific Gravit y 1.020 (1.005-1.030) Urine Protein Trace (Negative) Urine Glucose (UA) Norm (Normal) Urine Ketones Negative (Negative) Urine Blood Neg (Negative) Urine Nitrate Negative (Negative) Urine Bilirubin 1+ H (Negative) Urine Urobilinogen 1 H (Negative) mg/dL Ur Leukocyte Stephanie ase 1+ H (Negative) Urine RBC 0-4 H (0-2) /hpf Urine WBC 25-40 H (0-5) /hpf Ur Squamous Epith Cells 25-40 H (0-5) /hpf Amorphous Sediment Not Reportable Urine Bacteria 1+ H (NONE) /hpf Hyaline Casts 0-4 H /lpf Urine Mucus 2+ /hpf Discharge Plan Discharge Patient Disposition: Home Clinical Impression: Abdominal pain Qualifiers: Abdominal location: generalized Qualified Code(s): R10.84 - Generalized abdom inal pain Condition: Stable Prescriptions: No Action polyethylene glycol 3350 [Miralax] 17 gram/dose powder 17 gm PO DAILY PRN (Reason: constipation) RF: 0 buspirone 10 mg tablet 10 mg PO TID Qty: 90 RF: 1 lamotrigine 200 mg tablet 200 mg PO DAILY Qty: 30 RF: 1 lorazepam 0.5 mg tablet 0.5 mg PO DAILY PRN (Reason: Anxiety) 30 Days Qty: 30 RF: 1 Ingrezza 80 mg capsule 80 mg PO DAILY 1 Days RF: 2 venlafaxine 75 mg capsule,extended release 24hr 75 mg PO TID Qty: 90 RF: 1 levofloxacin 750 mg tablet 750 mg PO DAILY RF: 0 budesonide [Pulmicort] 0.5 mg/2 mL suspension for nebulization 0.5 mg INHALATION BID 30 Days Qty: 120 RF: 2 ipratropium-albuterol 0.5 mg-3 mg(2.5 mg base)/3 mL solution for nebulization See Rx Instructions .ROUTE .COMPLEX Qty: 1620 RF: 3 pantoprazole 40 mg tablet,delayed release (DR/EC) 40 mg PO BID RF: 0 acetaminophen [Tylenol Arthritis Pain] 650 mg Tablet Extended Release 1,300 mg PO Q6H PRN (Reason: Pain) RF: 0 albuterol sulfate [Ventolin HFA] 90 mcg/actuation Hfa Aerosol Inhaler 2 puff INHALATION Q4H PRN (Reason: Shortness Of Breath) RF: 0 ondansetron HCl [Zofran] 4 mg tablet 4 mg PO QID PRN (Reason: nausea and vomiting) Qty: 14 RF: 0 prochlorperazine maleate 5 mg tablet 5 mg PO TID PRN (Reason: Nausea) RF: 0 sucralfate 1 gram tablet 1 g PO QID RF: 0 aspirin [Aspir-81] 81 mg Tablet,Delayed Release (Dr/Ec) 81 mg PO DAILY RF: 0 hydroxyzine pamoate 50 mg capsule See Rx Instructions .ROUTE .COMPLEX RF: 0 trazodone 300 mg tablet 300 mg PO BEDTIME RF: 0 Discharge Orders: Discharge ED (Routine); Ordered 05/19/20 Ordered By: Damien Urbina Referrals: Dara Tavera FNP [Primary Care Provider] - 1-3 days Discharge Diet: Advance as tolerated Discharge Activity: Resume usual activity Patient Instructions: Abdominal Pain (ED) Coding Level of Care Code ED Epic [facility] for Chg Fwd Exam Comprehensive
[2020-05-19 12:48] VITALS: BP 128/83; PULSE 82; RESP 15; O2SAT 95
[2020-05-19] MEDS: morphine 4 mg/mL SDV 1 mL IM (12:50)
[2020-05-19] MEDS: ondansetron 2 mg/ML SDV 2 mL 4 MG IM (12:50)
[2020-05-19 12:56] LABS: Basophils # 0.1 10^3/uL (0.0-0.1); Basophils % 1.1 %; Eosinophils # 0.2 10^3/uL (0.0-0.8); Eosinophils % 2.9 %; Hematocrit 42.8 % (37.0-47.0); Hemoglobin 13.7 g/dL (11.5-15.3); Lymphocytes # 2.2 10^3/uL (0.8-4.8); Lymphocytes % 29.4 %; Mean Corpuscular Hemoglobin 28.4 pg (28.0-34.0); Mean Corpuscular Volume 88.6 fL (81-99); Mean Platelet Volume 9.9 fL (7.4-10.4); Monocytes # 0.6 10^3/uL (0.2-0.9); Monocytes % 8.6 %; Neutrophils # 4.31 10^3/uL (1.8-7.7); Neutrophils % 57.7 %; Nucleated Red Blood Cells % 0 %; Platelet Count 229 10^3/cmm (130-400); Red Blood Count 4.83 10^6/uL (4.1-5.3); Red Cell Distribution Width 17.2 % (12.1-15.1); White Blood Count 7.5 10^3/uL (4.0-10.0)
[2020-05-19 13:00] LABS: Protein Urine Trace (Negative); Urine Appearance Cloudy (CLEAR); Urine Color Yellow (Yellow); pH Urine 5 (5-7)
[2020-05-19 13:01] LABS: Add Urine Microscopic? YES; Bilirubin Urine 1+ (Negative); Blood Urine Neg (Negative); Glucose Urine UA Norm (Normal); Ketones Urine Negative (Negative); Leukocyte Esterase Urine 1+ (Negative); Nitrate Urine Negative (Negative); Urobilinogen Urine 1 mg/dL (Negative)
[2020-05-19 13:02] LABS: Bacteria Urine 1+ /hpf; Mucus Urine 2+ /hpf; RBC Urine 0-4 /hpf (0-2); Squamous Epithelial Cell Urine 25-40 /hpf (0-5); WBC Urine 25-40 /hpf (0-5)
[2020-05-19 13:03] LABS: Add Urine Culture? No; Hyaline Casts Urine 0-4 /lpf
[2020-05-19 13:40] LABS: Alanine Aminotransferase 7 U/L (0-33); Albumin Level 4.1 g/dL (3.5-5.2); Alkaline Phosphatase 151 IU/L (35-105); Anion Gap 17.1 (5-19); Aspartate Amino Transferase 10 U/L (0-32); Blood Urea Nitrogen 12 mg/dL (6-20); Calcium 9.8 mg/dL (8.5-10.5); Carbon Dioxide 22 mmol/L (22-29); Chloride 103 mmol/L (98-107); Globulin 2.6 g/dL (1.3-4.6); Glomerular Filtration Rate 58.2 mL/min (90-130); Glucose 101 mg/dL (65-115); Lipase 24 U/L (13-60); Osmolality Calculated 286 mOsm/kg (285-295); Potassium 4.1 mmol/L (3.5-5.1); Sodium 138 mmol/L (136-145); Total Bilirubin 0.2 mg/dL (0.15-1.2); Total Protein 6.7 g/dL (6.6-8.7)
[2020-05-19 14:04] VITALS: BP 139/91; PULSE 87; RESP 15; O2SAT 99
== END 2020-05-19 14:05 | disposition home or self-care (01) ==
PROVIDERS: Emergency Provider Emergency Medicine; PCP Registered Nurse
DX: R10.84 Generalized abdominal pain (principal); Z79.82 Long term (current) use of aspirin; Z87.891 Personal history of nicotine dependence
CPT/HCPCS: 12345; 36415; 80053; 81001; 83690; 85025; 96372; 99281; 99283; J2270; J2405

== ENCOUNTER 2020-05-24 11:10 | Emergency (ER) | payer MEDICARE, MEDICAID, SELFPAY ==
[2020-05-24 11:11] VITALS: BP 127/78; PULSE 85; PULSE 88; RESP 17; RESP 18; TEMP 36.6; O2SAT 96; O2SAT 98; BMI 32.9
--- NOTE | 2020-05-24 11:35 | ECG_ITS ---
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: : [id number] Requested By: Elva Weston I Order Number: [id number] Alice MD: JADON CHAMBERS Measurements Intervals [place] Rate: 79 P: 55 MO: 150 QRS: 62 QRSD: 95 T: 55 QT: 411 QTc: 473 Interpretive Statements SINUS RHYTHM INDETERMINATE AXIS INCOMPLETE RIGHT BUNDLE BRANCH BLOCK [90+ ms QRS DURATION, TERMINAL R IN V1/V2, 40+ ms S IN I/aVL/V4/V5/V6] Compared to ECG 02/28/2020 20:47:34 Incomplete right bundle-branch block now present Electronically Signed On 05-24-2020 15:47:15 GREASE CUP FILLER by JADON CHAMBERS [email or web address] [email or web address] lady of [id number] f
--- NOTE | 2020-05-24 11:35 | XRR_ITS ---
PROCEDURE INFORMATION: Exam: XR Chest, 1 View Exam date and time: 05/24/2020 11:37 AM Age: 54 years old Clinical indication: Chest pain; Prior surgery; Surgery type: Stents; Additional info: Cp TECHNIQUE: Imaging protocol: XR of the chest Views: 1 view. COMPARISON: CR XR chest 1V portable [id number] 05/06/2020 7:13 PM FINDINGS: Lungs: Unremarkable. No consolidation. Pleural space: Unremarkable. No pleural effusion. No pneumothorax. Heart/Mediastinum: Unremarkable. No cardiomegaly. Bones/joints: Unremarkable. XR/XR chest 1V portable [id number] IMPRESSION: No acute findings.
--- NOTE | 2020-05-24 11:37 | W.ED.CHESTPA ---
HPI - Chest Pain General: Chief Complaint: Chest Pain Stated Complaint: CHEST PAIN Time Seen by Provider: 05/24/20 11:28 Source: patient Mode of arrival: ambulatory Limitations: no limitations History of Present Illness: MD complaint: chest pain Onset (ago): minute(s) (45) Timing of current episode: constant Prior episodes: No Onset: other (while making her bed) Pain location: substernal Pain radiation: left arm Severity: moderate Quality: sharp Relieving factors: nothing Exacerbating factors: nothing Associated symptoms: Deny abdominal pain, diaphoresis, dyspnea, fever(s), leg edema, nausea, palpitations, sense of impending doom, syncope or vomiting Treatment prior to arrival: aspirin Review of Systems General: Reports: 10 or more systems reviewed and unremarkable except in HPI and below Const: Denies: fever(s) or diaphoresis Eyes: Denies: change in vision or blurry vision ENMT: Denies: throat pain, enlarged tonsils, odynophagia, hoarseness, mouth pain or swelling of lips/tongue Card: Denies: palpitations or syncope Resp: Denies: dyspnea GI: Denies: abdominal pain, nausea or vomiting : Denies: flank pain, difficulty voiding, dysuria, urinary frequency, urinary urgency or urinary hesitancy Musc: Denies: neck pain, back pain or extremity swelling Skin/Breast: Denies: rash, pruritus or erythema Neuro: Denies: headache(s), numbness in extremities or weakness in extremities Endo: Denies: polyuria, polydipsia or tired all the time PFSH ED PFSH: Medical History (Reviewed 05/24/20 @ 11:40 by Elva Weston MD, [facility] [place] Bladder stone Borderline personality disorder Chronic anxiety Chronic back pain greater than 3 months duration Chronic cystitis with hematuria Chronic gastritis without bleeding Chronic nausea Foreign body in bladder GERD without esophagitis Infiltrate of lung present on imaging of chest Neurogenic bladder Nicotine dependence, cigarettes, with other nicotine-induced disorders Quit in 2019 Oxygen dependent Restrictive lung disease Schizoaffective disorder, bipolar type Tertiary contraction of esophagus Urgency incontinence Surgical History (Reviewed 05/24/20 @ 11:40 by Elva Weston MD, [facility] [place] H/O: hysterectomy History of appendectomy History of breast biopsy History of ureter stent Hx of cholecystectomy S/P bronchoscopy with biopsy Family History (Reviewed 05/24/20 @ 11:40 by Elva Weston MD, [facility] [place] Other Asthma Cancer Diabetes Heart disease Social History (Reviewed 05/24/20 @ 11:40 by Elva Weston MD, [facility] [place] Smoking and tobacco status: former smoker Quit status (tobacco): has quit using tobacco Year quit tobacco: 2019PD x 25 Years Alcohol intake: never Lives independently: Yes Household members: spouse Marital status: Number of children: 3 Current occupational status: disabled History of recent travel: No Current gender identity: Female Female Reproductive History: Date of last menstrual period: 06/19/95 Physical Exam Const: COMMON NORMALS: no acute distress, average body habitus, patient oriented x3, no limitations, healthy appearing, alert and well nourished HENMT: COMMON NORMALS: normocephalic, atraumatic and moist oral mucous membranes HEAD & SCALP: normocephalic and atraumatic Neck/C-Spine: COMMON NORMALS: no meningeal signs and no JVD Chest: COMMONS NORMALS: normal inspection of the chest and normal palpation of entire chest wall Resp: COMMON NORMALS: normal respiratory effort, No retractions, No use of accessory muscles, clear to auscultation bilaterally and percussion normal AUSCULTATION: clear to auscultation bilaterally PERCUSSION: percussion normal Cardio: COMMON NORMALS: no JVD, regular rate, regular rhythm, S1 normal heart sound present, S2 normal heart sound present, No gallops present (Cardio), No clicks present (Cardio), No murmurs present (Cardio), No rub (Cardio) and Peripheral pulses 2+ throughout RATE: regular rate RHYTHM: regular rhythm HEART SOUNDS: S1 normal heart sound present and S2 normal heart sound present PERIPHERAL PULSES: Peripheral pulses 2+ throughout GI: COMMON NORMALS: Normal to inspection, nondistended, normoactive bowel sounds present, Soft to palpation, non-tender, No hepatosplenomegaly present, no masses and no bruits PALPATION: Yes Soft to palpation and Yes No hepatosplenomegaly present Extremity: COMMON NORMALS: normal to inspection, full ROM, capillary refill normal, no calf tenderness and no pedal edema Neuro: COMMON NORMALS: patient oriented x3 SENSORIUM/ORIENTATION: Yes alert MENINGEAL SIGNS: Yes no meningeal signs Skin: COMMON NORMALS: no rashes or lesions noted, no wounds, turgor normal, no jaundice, no petechiae and no mottling GENERAL SKIN EXAM: no rashes or lesions noted and turgor normal Course ED course: 54-year-old female patient who is well-known to this emergency department and to me with multiple ED visits, mostly spurious. Presents today with chest pain, however she absconded before her work-up was complete. Vital Signs: Vital signs: Vital Signs Temperature 97.9 F 05/24/20 11:11 Pulse Rate 82 05/24/20 12:11 Respiratory Rate 18 05/24/20 12:11 Blood Pressure 139/81 05/24/20 12:11 Pulse Oximetry 96 05/24/20 12:11 MDM - Chest Pain MDM Narrative: Medical decision making narrative: Patient with chest pain who absconded before her evaluation in the emergency department with complaints. Medical Records: Attestation: I reviewed the patient's medical records. Lab Data: Attestation: I reviewed the patient's lab results. Labs: Lab Results 05/24/20 05/24/20 05/24/20 Range/Units 12:40 12:40 12:40 WBC 7.1 (4.0-10.0) 10^3/ uL RBC 4.66 (4.1-5.3) 10^6/u L Hgb 13.0 (11.5-15.3) g/dL Hct 39.9 (37.0-47.0) % MCV 85.6 (81-99) fL MCH 27.9 L (28.0-34.0) pg MCHC 32.6 (30.0-36.0) g/dL RDW 17.5 H (12.1-15.1) % Plt Count 223 (130-400) 10^3/c mm MPV 9.9 (7.4-10.4) fL Neut % (Auto) 60.9 % Lymph % (Auto) 27.7 % Wolfe % (Auto) 7.5 % Eos % (Auto) 2.8 % Baso % (Auto) 0.8 % Neut # (Auto) 4.33 (1.8-7.7) 10^3/u L Lymph # (Auto) 2.0 (0.8-4.8) 10^3/u L Wolfe # (Auto) 0.5 (0.2-0.9) 10^3/u L Eos # (Auto) 0.2 (0.0-0.8) 10^3/u L Baso # (Auto) 0.1 (0.0-0.1) 10^3/u L Nucleated RBC % (a uto) 0 % Nucleated RBCs # 0.0 /100WBC Sodium 137 (136-145) mmol/L Potassium 4.2 (3.5-5.1) mmol/L Chloride 105 (98-107) mmol/L Carbon Dioxide 23 (22-29) mmol/L Anion Gap 13.2 (5-19) BUN 11 (6-20) mg/dL Creatinine 1.0 H (0.5-0.9) mg/dL GFR Calculation 58.2 L (90-130) mL/min Glucose 109 (65-115) mg/dL Calculated Osmolal ity 284 L (285-295) mOsm/k g Calcium 9.5 (8.5-10.5) mg/dL Total Bilirubin 0.2 (0.15-1.2) mg/dL AST 12 (0-32) U/L ALT 9 (0-33) U/L Alkaline Phosphata se 125 H (35-105) IU/L Troponin T Baselin e 6 (0-10) ng/L NT-Pro-B Natriuret Pep 237 H (0-125) pg/mL Total Protein 6.5 L (6.6-8.7) g/dL Albumin 3.9 (3.5-5.2) g/dL Globulin 2.6 (1.3-4.6) g/dL Lipase 21 (13-60) U/L Imaging Data^: CXR: Attestation: I personally reviewed and interpreted this imaging study as follows: Radiologist's impression: [address] [address] XRay Report Signed Patient: Nazia Wilhelm #: [id number] : 1965Acct#:[id number] Age/Sex: 54 / FADM Date: 05/24/20 Loc: ERRoom/Bed: Attending Dr: Ordering Provider/Ordering MD: Elva Weston MD, [facility] [place] of Service: 05/24/20 Procedure(s): XR chest 1V portable [id number] Accession Number(s): [id number] Report Number: [id number] PROCEDURE INFORMATION: Exam: XR Chest, 1 View Exam date and time: 05/24/2020 11:37 AM Age: 54 years old Clinical indication: Chest pain; Prior surgery; Surgery type: Stents; Additional info: Cp TECHNIQUE: Imaging protocol: XR of the chest Views: 1 view. COMPARISON: CR XR chest 1V portable [id number] 05/06/2020 7:13 PM FINDINGS: Lungs: Unremarkable. No consolidation. Pleural space: Unremarkable. No pleural effusion. No pneumothorax. Heart/Mediastinum: Unremarkable. No cardiomegaly. Bones/joints: Unremarkable. XR/XR chest 1V portable [id number] IMPRESSION: No acute findings. Dictated By:Donovan Long Signed By:Benjamin Long Date/Time:05/24/207 DD/ EKG Data^: EKG 1: Attestation: I personally reviewed and interpreted this EKG as follows: EKG interpretation date: 05/24/20 EKG interpretation time: 11:16 Prior EKG tracings: not available for review Interpretation: Sinus rhythm. Heart rate [address] changes. EKG 2: Attestation: I personally reviewed and interpreted this EKG as follows: EKG interpretation date: 05/24/20 EKG interpretation time: 13:54 Prior EKG tracings: available for review Interpretation: Normal sinus rhythm. Heart rate [address] changes. Normal axis. Discharge Plan Discharge Patient Disposition: Left Against Medical Advice Clinical Impression: Non-cardiac chest pain Prescriptions: No Action polyethylene glycol 3350 [Miralax] 17 gram/dose powder 17 gm PO DAILY@0800 PRN (Reason: constipation) RF: 0 lorazepam 0.5 mg tablet 0.5 mg PO DAILY PRN (Reason: Anxiety) 30 Days Qty: 30 RF: 1 ipratropium-albuterol 0.5 mg-3 mg(2.5 mg base)/3 mL solution for nebulization See Rx Instructions .ROUTE .COMPLEX Qty: 1620 RF: 3 venlafaxine 75 mg capsule,extended release 24hr 75 mg PO TID@08,13,21 RF: 0 lamotrigine 200 mg tablet 200 mg PO DAILY@0800 RF: 0 pantoprazole 40 mg tablet,delayed release (DR/EC) 40 mg PO DAILY@0800 RF: 0 buspirone 10 mg tablet 10 mg PO TID@,, RF: 0 Pulmicort 0.5 mg/2 mL suspension for nebulization 0.5 mg INHALATION BID@0800,2100 RF: 0 Ingrezza 80 mg capsule 80 mg PO DAILY@0800 RF: 0 acetaminophen [Tylenol Arthritis Pain] 650 mg Tablet Extended Release 1,300 mg PO Q6H PRN (Reason: Pain) RF: 0 albuterol sulfate [Ventolin HFA] 90 mcg/actuation Hfa Aerosol Inhaler 2 puff INHALATION Q4H PRN (Reason: Shortness Of Breath) RF: 0 ondansetron HCl [Zofran] 4 mg tablet 4 mg PO QID PRN (Reason: nausea and vomiting) Qty: 14 RF: 0 prochlorperazine maleate 5 mg tablet 5 mg PO TID PRN (Reason: Nausea) RF: 0 sucralfate 1 gram tablet 1 g PO QID@,,, RF: 0 hydroxyzine pamoate 50 mg capsule See Rx Instructions .ROUTE .COMPLEX RF: 0 trazodone 300 mg tablet 300 mg PO BEDTIME@2100 RF: 0 Referrals: Dara Tavera FNP [Primary Care Provider] - Coding Level of Care Code ED Auto Finance Sales Rep for [facility] Fwd Exam Comprehensive
[2020-05-24 12:11] VITALS: BP 139/81; PULSE 82; RESP 18; O2SAT 96
[2020-05-24 13:10] LABS: Troponin(5th) Baseline 6 ng/L (0-10)
[2020-05-24 13:21] LABS: Basophils # 0.1 10^3/uL (0.0-0.1); Basophils % 0.8 %; Eosinophils # 0.2 10^3/uL (0.0-0.8); Eosinophils % 2.8 %; Hematocrit 39.9 % (37.0-47.0); Lymphocytes % 27.7 %; Mean Corpuscular HGB Conc 32.6 g/dL (30.0-36.0); Mean Corpuscular Hemoglobin 27.9 pg (28.0-34.0); Mean Corpuscular Volume 85.6 fL (81-99); Mean Platelet Volume 9.9 fL (7.4-10.4); Monocytes # 0.5 10^3/uL (0.2-0.9); Monocytes % 7.5 %; Neutrophils # 4.33 10^3/uL (1.8-7.7); Neutrophils % 60.9 %; Nucleated Red Blood Cells % 0 %; Platelet Count 223 10^3/cmm (130-400); Red Blood Count 4.66 10^6/uL (4.1-5.3); Red Cell Distribution Width 17.5 % (12.1-15.1); White Blood Count 7.1 10^3/uL (4.0-10.0)
[2020-05-24 13:24] LABS: Alanine Aminotransferase 9 U/L (0-33); Albumin Level 3.9 g/dL (3.5-5.2); Alkaline Phosphatase 125 IU/L (35-105); Aspartate Amino Transferase 12 U/L (0-32); Blood Urea Nitrogen 11 mg/dL (6-20); Calcium 9.5 mg/dL (8.5-10.5); Carbon Dioxide 23 mmol/L (22-29); Chloride 105 mmol/L (98-107); Globulin 2.6 g/dL (1.3-4.6); Glomerular Filtration Rate 58.2 mL/min (90-130); Glucose 109 mg/dL (65-115); Lipase 21 U/L (13-60); NT Pro B Type Natriuretic Pept 237 pg/mL (0-125); Osmolality Calculated 284 mOsm/kg (285-295); Sodium 137 mmol/L (136-145); Total Bilirubin 0.2 mg/dL (0.15-1.2); Total Protein 6.5 g/dL (6.6-8.7)
[2020-05-24 13:26] LABS: Anion Gap 13.2 (5-19); Potassium 4.2 mmol/L (3.5-5.1)
--- NOTE | 2020-05-24 13:35 | ECG_ITS ---
[facility] [place] Test Date: 2020-05-24 Pat Name: Latesha Wilhelm Department: Room: Gender: Female Miner Assistant: : 1965 Requested By: Elva Weston I Order Number: [id number] Reading MD: JADON CHAMBERS Measurements Intervals [place] Rate: 71 P: 59 NE: 153 QRS: 61 QRSD: 98 T: 56 QT: 413 QTc: 452 Interpretive Statements SINUS RHYTHM Compared to ECG 05/24/2020 11:16:14 Indeterminate axis no longer present Incomplete right bundle-branch block no longer present Electronically Signed On 05-24-2020 15:47:41 FIBER OPTICS TECHNICIAN by JADON CHAMBERS [id number]
[2020-05-24] MEDS: acetaminophen 500 mg Tablet 1000 MG PO (13:55)
== END 2020-05-24 15:17 | disposition left against medical advice (07) ==
PROVIDERS: Emergency Provider Family Medicine; PCP Registered Nurse
DX: R07.89 Other chest pain (principal); Z53.21 Procedure and treatment not carried out due to patient leaving prior to being seen by health care provider; Z99.81 Dependence on supplemental oxygen; Z87.891 Personal history of nicotine dependence
CPT/HCPCS: 12345; 36415; 71045; 80053; 83690; 83880; 84484; 85025; 93005; 99282; 99283

== ENCOUNTER 2020-06-04 12:24 | Outpatient (CLI) | payer MEDICARE, MEDICAID, SELFPAY ==
--- NOTE | 2020-06-04 12:45 | US_ITS ---
WS: [id number] THYROID ULTRASOUND (TI-RADS CRITERIA) History: Nontoxic single thyroid nodule.. Technique: Ultrasound examination of the thyroid and adjacent soft tissues is performed. FINDINGS: Right lobe: 4.9 cm x 1.7 cm x 1.4 cm. Volume: 5.9 cm3. Normal size and echotexture. No significant are dominant nodules are present. Left lobe: 4.8 cm x 1.4 cm x 1.2 cm. Volume: 4.1 cm3. Normal size gland. Slightly hypoechoic nodule in the mid gland measures 6 x 8 x 7 mm. No increased va scularity. Isthmus: 0.2 cm. Estimated total number of nodules greater than or equal to 1 cm: 0 Number of spongiform nodules greater than or equal to 2 cm not described below (TR1): 0 Number of mixed cystic and solid nodules greater than or equal to 1.5 cm not described below (TR2): 0 US/US thyroid 34461 Impression: 8 mm nodule in the LEFT thyroid. Recommendation:No FNA or follow-up.
== END 2020-06-04 12:25 | disposition home or self-care (01) ==
LOC: US 12:27
PROVIDERS: PCP Registered Nurse; Visit Provider Registered Nurse
DX: E04.1 Nontoxic single thyroid nodule (principal)
CPT/HCPCS: 76536

== ENCOUNTER 2020-06-14 14:37 | Emergency (ER) | payer MEDICARE, MEDICAID, SELFPAY ==
[2020-06-14 14:38] VITALS: BP 98/60; PULSE 87; RESP 16; TEMP 36.7; O2SAT 95; BMI 32.4
--- NOTE | 2020-06-14 14:40 | XRR_ITS ---
PROCEDURE INFORMATION: Exam: XR Chest, 1 View Exam date and time: 06/14/2020 2:41 PM Age: 54 years old Clinical indication: Chest pain; Additional info: Cp TECHNIQUE: Imaging protocol: XR of the chest Views: 1 view. COMPARISON: CR (CHEST, ) 05/24/2020 12:07 PM FINDINGS: Lungs: Unremarkable. No consolidation. Pleural space: Unremarkable. No pleural effusion. No pneumothorax. Heart/Mediastinum: Unremarkable. No cardiomegaly. Bones/joints: Unremarkable. XR/XR chest 1V portable [id number] IMPRESSION: No acute findings.
--- NOTE | 2020-06-14 14:40 | ECG_ITS ---
[facility] Test Date: 2020-06-14 Pat Name: Latesha Wilhelm Department: Room: Gender: Female Downstairs Maid: : 1965 Requested By: Damien Urbina Order Number: [id number] Alice MD: Severo Aly M.D. Measurements Intervals [place] Rate: 81 P: 56 MS: 155 QRS: 59 QRSD: 94 T: 56 QT: 406 QTc: 472 Interpretive Statements SINUS RHYTHM POSSIBLE LEFT ATRIAL ENLARGEMENT [-0.1mV P WAVE IN V1/V2] Compared to ECG 05/24/2020 13:54:43 No significant changes Electronically Signed On 06-15-2020 16:52:01 EXHAUST AND MUFFLER REPAIRER by Severo Aly M.D. [id number] f
--- NOTE | 2020-06-14 14:41 | W.ED.CHESTPA ---
HPI - Chest Pain General: Chief Complaint: Chest Pain Stated Complaint: CHEST PAIN Time Seen by Provider: 06/14/20 14:38 Source: patient and EMS Mode of arrival: EMS Limitations: no limitations History of Present Illness: HPI narrative: 54-year-old female who is very well-known to the ER. She states she has been having chest pain over the day along with upper abdominal pain and nausea and vomiting. She denies any worsening improving factors. States pain is currently a 3 out of 10. Patient denies any fevers. Denies any radiation of her pain. MD complaint: chest pain Associated symptoms: Reports nausea and vomiting; Deny dyspnea or fever(s) Review of Systems Const: Denies: fever(s), chills, body aches or change in appetite Eyes: Denies: blurry vision or eye discomfort ENMT: Denies: throat pain or dental pain Card: Reports: chest pain Resp: Denies: dyspnea GI: Reports: nausea and vomiting : Denies: dysuria Musc: Denies: neck pain or back pain Skin/Breast: Denies: rash Neuro: Denies: headache(s) Psych: Denies: depression Wilbur/Lymph: Denies: easy bruising All/Imm: Denies: urticaria PFSH ED PFSH: Medical History Bladder stone Borderline personality disorder Chronic anxiety Chronic back pain greater than 3 months duration Chronic cystitis with hematuria Chronic gastritis without bleeding Chronic nausea Foreign body in bladder GERD without esophagitis Infiltrate of lung present on imaging of chest Neurogenic bladder Nicotine dependence, cigarettes, with other nicotine-induced disorders Quit in 2019 Oxygen dependent Restrictive lung disease Schizoaffective disorder, bipolar type Tertiary contraction of esophagus Urgency incontinence Surgical History H/O: hysterectomy History of appendectomy History of breast biopsy History of ureter stent Hx of cholecystectomy S/P bronchoscopy with biopsy Family History Other Asthma Cancer Diabetes Heart disease Social History Smoking and tobacco status: former smoker Quit status (tobacco): has quit using tobacco Year quit tobacco: 2019PD x 25 Years Alcohol intake: never Lives independently: Yes Household members: spouse Marital status: Number of children: 3 Current occupational status: disabled History of recent travel: No Current gender identity: Female Female Reproductive History: Date of last menstrual period: 06/19/95 Physical Exam Const: COMMON NORMALS: no acute distress, patient oriented x3 and healthy appearing HENMT: COMMON NORMALS: normocephalic and atraumatic HEAD & SCALP: normocephalic and atraumatic Eye: COMMON NORMALS: Equal, round and reactive pupils present and EOMs intact bilaterally PUPIL: Yes Equal, round and reactive pupils present Neck/C-Spine: COMMON NORMALS: full ROM and supple Chest: COMMONS NORMALS: normal inspection of the chest and normal palpation of entire chest wall Resp: COMMON NORMALS: normal respiratory effort, No retractions, No use of accessory muscles and clear to auscultation bilaterally AUSCULTATION: clear to auscultation bilaterally Cardio: COMMON NORMALS: regular rate, regular rhythm and No murmurs present (Cardio) RATE: regular rate RHYTHM: regular rhythm GI: COMMON NORMALS: Normal to inspection, nondistended, normoactive bowel sounds present, Soft to palpation, non-tender and no masses PALPATION: Yes Soft to palpation Extremity: COMMON NORMALS: normal to inspection and full ROM Neuro: COMMON NORMALS: patient oriented x3, moves all extremities and no focal motor deficits Psych: COMMON NORMALS: mental status grossly normal, Normal thought process present and cooperative THOUGHT PROCESS: Normal thought process present Skin: COMMON NORMALS: no rashes or lesions noted and no wounds GENERAL SKIN EXAM: no rashes or lesions noted Course Vital Signs: Vital signs: Vital Signs Temperature 98.2 F 06/14/20 14:47 Pulse Rate 95 06/14/20 15:15 Respiratory Rate 16 06/14/20 15:15 Blood Pressure 127/79 06/14/20 15:15 Pulse Oximetry 100 06/14/20 15:15 MDM - Chest Pain MDM Narrative: Medical decision making narrative: Latesha presents here with chest pain that is atypical in nature. Her troponin and EKG are normal. Patient well-appearing here and has no signs of acute coronary syndrome. She is to follow-up with her PCP and is to return if worsening. She understands and agrees to plan. Lab Data: Labs: Lab Results 06/14/20 06/14/20 06/14/20 Range/Units 15:05 15:05 15:05 WBC 10.8 H (4.0-10.0) 10^3/ uL RBC 4.62 (4.1-5.3) 10^6/u L Hgb 13.2 (11.5-15.3) g/dL Hct 40.7 (37.0-47.0) % MCV 88.1 (81-99) fL MCH 28.6 (28.0-34.0) pg MCHC 32.4 (30.0-36.0) g/dL RDW 17.2 H (12.1-15.1) % Plt Count 234 (130-400) 10^3/c mm MPV 10.1 (7.4-10.4) fL Neut % (Auto) 69.9 % Lymph % (Auto) 19.1 % [place] % (Auto) 6.8 % Eos % (Auto) 3.1 % Baso % (Auto) 0.8 % Neut # (Auto) 7.56 (1.8-7.7) 10^3/u L Lymph # (Auto) 2.1 (0.8-4.8) 10^3/u L [place] # (Auto) 0.7 (0.2-0.9) 10^3/u L Eos # (Auto) 0.3 (0.0-0.8) 10^3/u L Baso # (Auto) 0.1 (0.0-0.1) 10^3/u L Nucleated RBC % (a uto) 0 % Nucleated RBCs # 0.0 /100WBC Sodium 141 (136-145) mmol/L Potassium 3.8 (3.5-5.1) mmol/L Chloride 105 (98-107) mmol/L Carbon Dioxide 24 (22-29) mmol/L Anion Gap 15.8 (5-19) BUN 14 (6-20) mg/dL Creatinine 0.9 (0.5-0.9) mg/dL GFR Calculation 65.8 L (90-130) mL/min Glucose 112 (65-115) mg/dL Calculated Osmolal ity 293 (285-295) mOsm/k g Calcium 9.2 (8.5-10.5) mg/dL Total Bilirubin 0.2 (0.15-1.2) mg/dL AST 9 (0-32) U/L ALT 6 (0-33) U/L Alkaline Phosphata se 127 H (35-105) IU/L Troponin T Baselin e 6 (0-10) ng/L Total Protein 6.0 L (6.6-8.7) g/dL Albumin 3.9 (3.5-5.2) g/dL Globulin 2.1 (1.3-4.6) g/dL Lipase 27 (13-60) U/L EKG Data^: EKG 1: Attestation: I personally reviewed and interpreted this EKG as follows: EKG interpretation date: 06/14/20 EKG interpretation time: 14:43 Interpretation: nsr hr [address] or t wave abnormalities qrs 94 qtc 443 Discharge Plan Discharge Patient Disposition: Home Clinical Impression: Atypical chest pain Condition: Stable Prescriptions: No Action polyethylene glycol 3350 [Miralax] 17 gram/dose powder 17 gm PO DAILY@0800 PRN (Reason: constipation) RF: 0 lorazepam 0.5 mg tablet 0.5 mg PO DAILY PRN (Reason: Anxiety) 30 Days Qty: 30 RF: 1 ipratropium-albuterol 0.5 mg-3 mg(2.5 mg base)/3 mL solution for nebulization See Rx Instructions .ROUTE .COMPLEX Qty: 1620 RF: 3 albuterol sulfate [Ventolin HFA] 90 mcg/actuation HFA aerosol inhaler See Rx Instructions .ROUTE .COMPLEX Qty: 18 RF: 3 sucralfate 1 gram tablet 1 g PO QID@,,,21 30 Days Qty: 120 RF: 0 Ingrezza 80 mg capsule 80 mg PO DAILY@0800 Qty: 30 RF: 2 hydroxyzine pamoate 50 mg capsule See Rx Instructions .ROUTE .COMPLEX 30 Days Qty: 150 RF: 0 venlafaxine 75 mg capsule,extended release 24hr 75 mg PO TID@,, RF: 0 lamotrigine 200 mg tablet 200 mg PO DAILY@0800 RF: 0 pantoprazole 40 mg tablet,delayed release (DR/EC) 40 mg PO DAILY@0800 RF: 0 buspirone 10 mg tablet 10 mg PO TID@, RF: 0 Pulmicort 0.5 mg/2 mL suspension for nebulization 0.5 mg INHALATION BID@0800,2100 RF: 0 acetaminophen [Tylenol Arthritis Pain] 650 mg Tablet Extended Release 1,300 mg PO Q6H PRN (Reason: Pain) RF: 0 ondansetron HCl [Zofran] 4 mg tablet 4 mg PO QID PRN (Reason: nausea and vomiting) Qty: 14 RF: 0 prochlorperazine maleate 5 mg tablet 5 mg PO TID PRN (Reason: Nausea) RF: 0 trazodone 300 mg tablet 300 mg PO BEDTIME@2100 RF: 0 Discharge Orders: Discharge ED (Routine); Ordered 06/14/20 Ordered By: Damien Urbina Referrals: Dara Tavera FNP [Primary Care Provider] - 1-3 days Discharge Diet: Advance as tolerated Discharge Activity: Resume usual activity Patient Instructions: Chest Pain (ED) Coding Level of Care Code ED Head Of Visual Merchandising for Shellie Fwd Exam Comprehensive
[2020-06-14 14:47] VITALS: BP 105/65; PULSE 110; RESP 16; TEMP 36.8; O2SAT 98
[2020-06-14 14:59] VITALS: BP 116/71; PULSE 89; RESP 16; O2SAT 97
[2020-06-14 15:15] VITALS: BP 127/79; PULSE 95; RESP 16; O2SAT 100
[2020-06-14 15:35] LABS: Basophils # 0.1 10^3/uL (0.0-0.1); Basophils % 0.8 %; Eosinophils # 0.3 10^3/uL (0.0-0.8); Eosinophils % 3.1 %; Hematocrit 40.7 % (37.0-47.0); Hemoglobin 13.2 g/dL (11.5-15.3); Lymphocytes # 2.1 10^3/uL (0.8-4.8); Lymphocytes % 19.1 %; Mean Corpuscular HGB Conc 32.4 g/dL (30.0-36.0); Mean Corpuscular Hemoglobin 28.6 pg (28.0-34.0); Mean Corpuscular Volume 88.1 fL (81-99); Mean Platelet Volume 10.1 fL (7.4-10.4); Monocytes # 0.7 10^3/uL (0.2-0.9); Monocytes % 6.8 %; Neutrophils # 7.56 10^3/uL (1.8-7.7); Neutrophils % 69.9 %; Nucleated Red Blood Cells % 0 %; Platelet Count 234 10^3/cmm (130-400); Red Blood Count 4.62 10^6/uL (4.1-5.3); Red Cell Distribution Width 17.2 % (12.1-15.1); White Blood Count 10.8 10^3/uL (4.0-10.0)
[2020-06-14 15:50] LABS: Alanine Aminotransferase 6 U/L (0-33); Albumin Level 3.9 g/dL (3.5-5.2); Alkaline Phosphatase 127 IU/L (35-105); Anion Gap 15.8 (5-19); Aspartate Amino Transferase 9 U/L (0-32); Blood Urea Nitrogen 14 mg/dL (6-20); Calcium 9.2 mg/dL (8.5-10.5); Carbon Dioxide 24 mmol/L (22-29); Chloride 105 mmol/L (98-107); Globulin 2.1 g/dL (1.3-4.6); Glomerular Filtration Rate 65.8 mL/min (90-130); Glucose 112 mg/dL (65-115); Lipase 27 U/L (13-60); Osmolality Calculated 293 mOsm/kg (285-295); Potassium 3.8 mmol/L (3.5-5.1); Sodium 141 mmol/L (136-145); Total Bilirubin 0.2 mg/dL (0.15-1.2)
[2020-06-14 15:52] LABS: Troponin(5th) Baseline 6 ng/L (0-10)
[2020-06-14 16:23] VITALS: BP 152/106; PULSE 77; RESP 18; O2SAT 97
== END 2020-06-14 16:27 | disposition home or self-care (01) ==
PROVIDERS: Emergency Provider Emergency Medicine; PCP Registered Nurse
DX: R07.89 Other chest pain (principal); Z87.891 Personal history of nicotine dependence
CPT/HCPCS: 12345; 36415; 71045; 80053; 83690; 84484; 85025; 93005; 99283; 99284

== ENCOUNTER → 2020-06-23 07:45 | Outpatient (BNVA) | payer MEDICARE, MEDICAID, SELFPAY | PROVIDERS: PCP Registered Nurse; Visit Provider Nurse Practitioner | DX: F25.0 Schizoaffective disorder, bipolar type (principal); F60.3 Borderline personality disorder | CPT/HCPCS: 99213 ==

== ENCOUNTER 2020-07-09 19:16 | Inpatient (IN) | payer MEDICARE, MEDICAID, SELFPAY ==
[2020-07-09 19:16] VITALS: BP 128/74; PULSE 100; RESP 14; TEMP 36.5; O2SAT 94; BMI 32.4
--- NOTE | 2020-07-09 19:19 | ECG_ITS ---
[facility] Test Date: 2020-07-09 Pat Name: Latesha Wilhelm Department: Room: Gender: Female Operations Executive: : 1965 Requested By: Frederick Khan Order Number: [id number] Alice MD: Kenan Sidhu M.D. Measurements Intervals [place] Rate: 72 P: 65 SD: 162 QRS: 72 QRSD: 95 T: 64 QT: 417 QTc: 457 Interpretive Statements SINUS RHYTHM Compared to ECG 06/14/2020 14:43:53 No significant changes Electronically Signed On 07-10-2020 19:09:48 SYSTEMS PROTECTION TECHNICIAN by Kenan Sidhu M.D. [email or web address] ([email or web address] [email or web address]/[id number]
[2020-07-09 19:57] LABS: Add Urine Microscopic? NO
--- NOTE | 2020-07-09 20:01 | ED_ITS ---
HPI - Psych General: Chief Complaint: Psychiatric Symptoms Stated Complaint: si Time Seen by Provider: 07/09/20 19:19 History of Present Illness: HPI Narrative: The patient is a 54-year-old female with chronic depression who comes to the ER complaining of suicidal ideations. She says she has had recent increase in stress in her life and she is considering overdosing on her Ativan, and trazodone. She says she has taken medications in the past and attempts to overdose and cut herself though she did not do those things today. She decided she should come in before she does something to hurt herself complaint: suicidal ideation and feels depressed History of same: Yes Context: significant life stressor Associated symptoms: Reports no associated symptoms; Deny depression Review of Systems General: Reports: 10 or more systems reviewed and unremarkable except in HPI and below Const: Denies: fatigue Eyes: Denies: change in vision, blurry vision or eye redness ENMT: Denies: throat pain, swelling of lips/tongue, ear or mastoid pain or nasal congestion Card: Denies: chest pain, palpitations, irregular heart rhythm, edema, dyspnea on exertion or orthopnea Resp: Denies: dyspnea, productive cough or non-productive cough GI: Denies: abdominal pain, diarrhea or GI cramping : Denies: flank pain, difficulty voiding, urinary frequency or urinary urgency Musc: Denies: neck pain, back pain, extremity pain, joint pain, joint redness, limited range of motion or muscle weakness Skin/Breast: Denies: rash, pruritus, erythema, skin pain or skin tenderness Neuro: Denies: headache(s), numbness in extremities, weakness in extremities, sensory changes, difficulty walking, dizziness, confusion or Slurred speech present Psych: Denies: anxiety or depression Endo: Denies: polyuria All/Imm: Denies: urticaria, throat swelling or tongue swelling PFSH ED PFSH: Medical History Bladder stone Borderline personality disorder Chronic anxiety Chronic back pain greater than 3 months duration Chronic cystitis with hematuria Chronic gastritis without bleeding Chronic nausea Foreign body in bladder GERD without esophagitis Infiltrate of lung present on imaging of chest Neurogenic bladder Nicotine dependence, cigarettes, with other nicotine-induced disorders Quit in 2019 Oxygen dependent Restrictive lung disease Schizoaffective disorder, bipolar type Tertiary contraction of esophagus Urgency incontinence Surgical History H/O: hysterectomy History of appendectomy History of breast biopsy History of ureter stent Hx of cholecystectomy S/P bronchoscopy with biopsy Family History Other Asthma Cancer Diabetes Heart disease Social History Smoking and tobacco status: former smoker Quit status (tobacco): has quit using tobacco Year quit tobacco: 2019PD x 25 Years Alcohol intake: never Lives independently: Yes Household members: spouse Marital status: Number of children: 3 Current occupational status: disabled History of recent travel: No Current gender identity: Female Female Reproductive History: Date of last menstrual period: 06/19/95 Physical Exam Const: COMMON NORMALS: no acute distress, average body habitus, patient oriented x3, no limitations, healthy appearing, alert and well nourished GENERAL APPEARANCE: cooperative, comfortable, well kempt and well developed ORIENTATION/CONSCIOUSNESS: Yes awake, Yes oriented to person, Yes oriented to place and Yes oriented to time HENMT: COMMON NORMALS: normocephalic, external ears normal and Normal external nose present HEAD & SCALP: normal to inspection and normocephalic NOSE: Normal external nose present EXTERNAL EAR: Yes external ears normal MOUTH: Normal oral and palatal mucosa present THROAT: posterior oropharynx normal Eye: COMMON NORMALS: Equal, round and reactive pupils present and EOMs intact bilaterally GENERAL EYE: appearance normal, both eyes and all related structures PUPIL: Yes Equal, round and reactive pupils present Neck/C-Spine: COMMON NORMALS: full ROM, no lymphadenopathy, no meningeal signs and no JVD GENERAL: Yes normal visual inspection Lymph: LYMPHATIC: no lymphadenopathy noted Chest: COMMONS NORMALS: normal inspection of the chest and normal palpation of entire chest wall Resp: COMMON NORMALS: normal respiratory effort, No retractions, No use of accessory muscles, clear to auscultation bilaterally and percussion normal EFFORT & INSPECTION: Yes able to speak in complete sentences AUSCULTATION: clear to auscultation bilaterally PERCUSSION: percussion normal Cardio: COMMON NORMALS: no JVD, regular rate, regular rhythm, S1 normal heart sound present, S2 normal heart sound present and Peripheral pulses 2+ throughout RATE: regular rate RHYTHM: regular rhythm HEART SOUNDS: S1 normal heart sound present and S2 normal heart sound present PERIPHERAL PULSES: Peripheral pulses 2+ throughout GI: COMMON NORMALS: Normal to inspection, nondistended, normoactive bowel sounds present, Soft to palpation, non-tender and no masses INSPECTION: Yes normal to inspection PALPATION: Yes Soft to palpation : COMMON NORMALS: Yes no CVA tenderness BLADDER/KIDNEY EXAM: Yes no CVA tenderness Back/Pelvis: COMMON NORMALS: no CVA tenderness, thoracic and lumbar spine normal to inspection, no thoracic nor lumbar tenderness and thoraco-lumbar ROM normal Extremity: COMMON NORMALS: normal to inspection, full ROM, capillary refill normal, no joint enlargement and no pedal edema GENERAL: Yes normal exam except as noted Neuro: COMMON NORMALS: patient oriented x3, CN's II-XII intact bilaterally, moves all extremities, no focal motor deficits, no sensory deficits noted and gait normal SENSORIUM/ORIENTATION: Yes alert, Yes oriented to person, Yes oriented to place and Yes oriented to time MENINGEAL SIGNS: Yes no meningeal signs Psych: COMMON NORMALS: mental status grossly normal, Normal thought process present, cooperative, normal affect and speech normal APPEARANCE: Yes well kempt ATTITUDE: Yes calm SPEECH: Yes normal speech THOUGHT PROCESS: Normal thought process present Skin: COMMON NORMALS: no rashes or lesions noted GENERAL SKIN EXAM: no rashes or lesions noted MDM - Psych MDM Narrative: Medical decision making narrative: Patient has suicidal ideati ons. Discussed with Dr. Escobedo who accepts her care. She complained of left flank pain. CT is negative for nephrolithiasis. It does show chronic renal stones on the right side that are nonobstructing. She likely has chronic back pain she is complaining of. Urinalysis is clear Lab Data: Labs: Lab Results 07/09/20 07/09/20 07/09/20 Range/Units 19:51 19:51 19:51 WBC 9.4 (4.0-10.0) 10^3/ uL RBC 4.56 (4.1-5.3) 10^6/u L Hgb 13.4 (11.5-15.3) g/dL Hct 40.5 (37.0-47.0) % MCV 88.8 (81-99) fL MCH 29.4 (28.0-34.0) pg MCHC 33.1 (30.0-36.0) g/dL RDW 16.0 H (12.1-15.1) % Plt Count 270 (130-400) 10^3/c mm MPV 10.3 (7.4-10.4) fL Neut % (Auto) 52.5 % Lymph % (Auto) 30.7 % Imperial % (Auto) 9.4 % Eos % (Auto) 5.6 % Baso % (Auto) 1.5 % Neut # (Auto) 4.93 (1.8-7.7) 10^3/u L Lymph # (Auto) 2.9 (0.8-4.8) 10^3/u L Imperial # (Auto) 0.9 (0.2-0.9) 10^3/u L Eos # (Auto) 0.5 (0.0-0.8) 10^3/u L Baso # (Auto) 0.1 (0.0-0.1) 10^3/u L Nucleated RBC % (a uto) 0 % Nucleated RBCs # 0.0 /100WBC Sodium 138 (136-145) mmol/L Potassium 4.3 (3.5-5.1) mmol/L Chloride 102 (98-107) mmol/L Carbon Dioxide 26 (22-29) mmol/L Anion Gap 14.3 (5-19) BUN 11 (6-20) mg/dL Creatinine 1.1 H (0.5-0.9) mg/dL GFR Calculation 52.2 L (90-130) mL/min Glucose 108 (65-115) mg/dL Calculated Osmolal ity 286 (285-295) mOsm/k g Calcium 9.4 (8.5-10.5) mg/dL Total Bilirubin 0.2 (0.15-1.2) mg/dL AST 10 (0-32) U/L ALT 7 (0-33) U/L Alkaline Phosphata se 135 H (35-105) IU/L Total Protein 6.2 L (6.6-8.7) g/dL Albumin 3.7 (3.5-5.2) g/dL Globulin 2.5 (1.3-4.6) g/dL TSH 1.75 (0.27-4.20) uIU/ mL Urine Color Yellow (Yellow) Urine Appearance Clear (CLEAR) Urine pH 6.0 (5-7) Ur Specific Gravit y 1.015 (1.005-1.030) Urine Protein Neg (Negative) Urine Glucose (UA) Norm (Normal) Urine Ketones Negative (Negative) Urine Blood Neg (Negative) Urine Nitrate Negative (Negative) Urine Bilirubin Neg (Negative) Urine Urobilinogen Norm (Negative) mg/dL Ur Leukocyte Stephanie ase Negative (Negative) Salicylates < 0.3 L (3-10) mg/dL Urine Opiates Scre en (Negative) ng/mL Acetaminophen 7.4 L (10-30) ug/mL Ur Barbiturates Sc reen (Negative) ng/mL Ur Phencyclidine S crn (Negative) ng/mL Ur Amphetamines Sc reen (Negative) ng/mL U Benzodiazepines Scrn (Negative) ng/mL Urine Cocaine Scre en (Negative) ng/mL U Marijuana (THC) Screen (Negative) ng/mL Ethyl Alcohol < 10 (0-10) mg/dL 07/09/20 Range/Units 19:51 WBC (4.0-10.0) 10^3/ uL RBC (4.1-5.3) 10^6/u L Hgb (11.5-15.3) g/dL Hct (37.0-47.0) % MCV (81-99) fL MCH (28.0-34.0) pg MCHC (30.0-36.0) g/dL RDW (12.1-15.1) % Plt Count (130-400) 10^3/c mm MPV (7.4-10.4) fL Neut % (Auto) % Lymph % (Auto) % Imperial % (Auto) % Eos % (Auto) % Baso % (Auto) % Neut # (Auto) (1.8-7.7) 10^3/u L Lymph # (Auto) (0.8-4.8) 10^3/u L Imperial # (Auto) (0.2-0.9) 10^3/u L Eos # (Auto) (0.0-0.8) 10^3/u L Baso # (Auto) (0.0-0.1) 10^3/u L Nucleated RBC % (a uto) % Nucleated RBCs # /100WBC Sodium (136-145) mmol/L Potassium (3.5-5.1) mmol/L Chloride (98-107) mmol/L Carbon Dioxide (22-29) mmol/L Anion Gap (5-19) BUN (6-20) mg/dL Creatinine (0.5-0.9) mg/dL GFR Calculation (90-130) mL/min Glucose (65-115) mg/dL Calculated Osmolal ity (285-295) mOsm/k g Calcium (8.5-10.5) mg/dL Total Bilirubin (0.15-1.2) mg/dL AST (0-32) U/L ALT (0-33) U/L Alkaline Phosphata se (35-105) IU/L Total Protein (6.6-8.7) g/dL Albumin (3.5-5.2) g/dL Globulin (1.3-4.6) g/dL TSH (0.27-4.20) uIU/ mL Urine Color (Yellow) Urine Appearance (CLEAR) Urine pH (5-7) Ur Specific Gravit y (1.005-1.030) Urine Protein (Negative) Urine Glucose (UA) (Normal) Urine Ketones (Negative) Urine Blood (Negative) Urine Nitrate (Negative) Urine Bilirubin (Negative) Urine Urobilinogen (Negative) mg/dL Ur Leukocyte Stephanie ase (Negative) Salicylates (3-10) mg/dL Urine Opiates Scre en Positive H (Negative) ng/mL Acetaminophen (10-30) ug/mL Ur Barbiturates Sc reen Negative (Negative) ng/mL Ur Phencyclidine S crn Negative (Negative) ng/mL Ur Amphetamines Sc reen Negative (Negative) ng/mL U Benzodiazepines Scrn Positive H (Negative) ng/mL Urine Cocaine Scre en Negative (Negative) ng/mL U Marijuana (THC) Screen Negative (Negative) ng/mL Ethyl Alcohol (0-10) mg/dL Discharge Plan Discharge Patient Disposition: Admitted As Inpatient Clinical Impression: Depression, Suicidal ideation Condition: Stable Coding Level of Care Code ED Estimating Engineer for g Fwd Exam Comprehensive
[2020-07-09 20:12] LABS: Amphetamines Screen Urine Negative (Negative); Barbiturates Screen Urine Negative (Negative); Benzodiazepines Screen Urine Positive (Negative); Cocaine Screen Urine Negative (Negative); Opiate Screen Urine Positive (Negative); PCP Screen Urine Negative (Negative); THC Screen Urine Negative (Negative)
[2020-07-09 20:14] LABS: Bilirubin Urine Neg (Negative); Blood Urine Neg (Negative); Glucose Urine UA Norm (Normal); Ketones Urine Negative (Negative); Leukocyte Esterase Urine Negative (Negative); Nitrate Urine Negative (Negative); Protein Urine Neg (Negative); Specific Gravity, Urine 1.015 (1.005-1.030); Urine Appearance Clear (CLEAR); Urine Color Yellow (Yellow); Urobilinogen Urine Norm (Negative)
[2020-07-09 20:27] LABS: Basophils # 0.1 10^3/uL (0.0-0.1); Basophils % 1.5 %; Eosinophils # 0.5 10^3/uL (0.0-0.8); Eosinophils % 5.6 %; Hematocrit 40.5 % (37.0-47.0); Hemoglobin 13.4 g/dL (11.5-15.3); Lymphocytes # 2.9 10^3/uL (0.8-4.8); Lymphocytes % 30.7 %; Mean Corpuscular HGB Conc 33.1 g/dL (30.0-36.0); Mean Corpuscular Hemoglobin 29.4 pg (28.0-34.0); Mean Corpuscular Volume 88.8 fL (81-99); Mean Platelet Volume 10.3 fL (7.4-10.4); Monocytes # 0.9 10^3/uL (0.2-0.9); Monocytes % 9.4 %; Neutrophils # 4.93 10^3/uL (1.8-7.7); Neutrophils % 52.5 %; Nucleated Red Blood Cells % 0 %; Platelet Count 270 10^3/cmm (130-400); Red Blood Count 4.56 10^6/uL (4.1-5.3); White Blood Count 9.4 10^3/uL (4.0-10.0)
[2020-07-09 20:40] LABS: Acetaminophen 7.4 ug/mL (10-30); Alanine Aminotransferase 7 U/L (0-33); Albumin Level 3.7 g/dL (3.5-5.2); Alkaline Phosphatase 135 IU/L (35-105); Aspartate Amino Transferase 10 U/L (0-32); Blood Urea Nitrogen 11 mg/dL (6-20); Calcium 9.4 mg/dL (8.5-10.5); Carbon Dioxide 26 mmol/L (22-29); Chloride 102 mmol/L (98-107); Globulin 2.5 g/dL (1.3-4.6); Glomerular Filtration Rate 52.2 mL/min (90-130); Glucose 108 mg/dL (65-115); Osmolality Calculated 286 mOsm/kg (285-295); Sodium 138 mmol/L (136-145); Thyroid Stimulating Hormone 1.75 uIU/mL (0.27-4.20); Total Bilirubin 0.2 mg/dL (0.15-1.2); Total Protein 6.2 g/dL (6.6-8.7)
[2020-07-09 20:41] LABS: Alcohol Level < 10 mg/dL (0-10); Salicylate < 0.3 mg/dL (3-10)
[2020-07-09 20:42] LABS: Anion Gap 14.3 (5-19); Potassium 4.3 mmol/L (3.5-5.1)
--- NOTE | 2020-07-09 20:59 | CTR_ITS ---
PROCEDURE INFORMATION: Exam: CT Abdomen And Pelvis Without Contrast Exam date and time: 07/09/2020 9:02 PM Age: 54 years old Clinical indication: Abdominal pain; Prior surgery; Surgery type: Gb. Appy. Bladder. ; Patient HX: Left flank pain; Additional info: R/O stone TECHNIQUE: Imaging protocol: Computed tomography of the abdomen and pelvis without contrast. Radiation optimization: All CT scans at this facility use at least one of these dose optimization techniques: automated exposure control; mA and/or kV adjustment per patient size (includes targeted exams where dose is matched to clinical indication); or iterative reconstruction. COMPARISON: CT chest abd pel w con* 08/04/2019 2:27 AM RADIATION DOSE METRICS: Total DLP (mGy-cm): 1471.19 FINDINGS: Liver: Normal. No mass. Gallbladder and bile ducts: Stable cholecystectomy. Pancreas: Normal. No ductal dilation. Spleen: Calcified splenic granulomas. Adrenal glands: Normal. No mass. Kidneys and ureters: One or more nonobstructing right renal calyceal stones. Stomach and bowel: Unremarkable. No obstruction. No mucosal thickening. Appendix: No evidence of appendicitis. Intraperitoneal space: Unremarkable. No free air. No significant fluid collection. Vasculature: Calcification of the abdominal aorta and/or iliac arteries consistent with atherosclerotic vessel disease. One or more calcified pelvic phleboliths. Lymph nodes: Unremarkable. No enlarged lymph nodes. Urinary bladder: Unremarkable as visualized. Reproductive: Stable hysterectomy. Bones/joints: Mild dextroscoliosis. Mild to moderate multilevel spine degenerative changes including degenerative disc disease, spondylosis and facet degenerative changes. Soft tissues: Unremarkable. CT/CT kidney stone [id number] IMPRESSION: No acute findings. Radiation Dose CTDIVOL = (mGy): DLP = 1471.19 (mGy-cm)
[2020-07-09 22:55] VITALS: BP 128/78; PULSE 69; RESP 18; TEMP 36.6; O2SAT 93
[2020-07-09 23:23] VITALS: BP 126/79; PULSE 78; RESP 18; TEMP 36.6; O2SAT 92
[2020-07-10] MEDS: trazodone 150 mg Tablet 300 MG PO ×2 (00:36→21:00)
[2020-07-10] MEDS: LORazepam 0.5 mg Tablet PO ×2 (00:37→19:20)
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
[2020-07-10 06:00] VITALS: BP 121/73; PULSE 78; RESP 17; TEMP 36.8; O2SAT 93
[2020-07-10] MEDS: lamoTRIgine 100 mg Tablet 200 MG PO (07:34)
[2020-07-10] MEDS: hyDROXYzine 25 mg Capsule 50 MG PO ×4 (07:34→17:29)
[2020-07-10] MEDS: sucralfate 1 gm Tablet PO ×4 (07:34→21:00)
[2020-07-10] MEDS: BuSPIRONE 10 mg Tablet PO ×3 (07:34→21:00)
[2020-07-10] MEDS: pantoprazole DR 40 mg Tablet PO (07:34)
[2020-07-10] MEDS: budesonide 0.5 mg/2 mL Neb INHALATION (07:43)
[2020-07-10 07:44] VITALS: PULSE 108; RESP 18; O2SAT 94
--- NOTE | 2020-07-10 08:00 | PC.NURSE ---
pt refused scheduled Miralax and Nystatin powder this morning
--- NOTE | 2020-07-10 12:03 | PC.RESP ---
Pulmonary Rehab information sent to patient.
--- NOTE | 2020-07-10 13:44 | PM.NHP ---
Providers/Chief Complaint Admitting Physician: Odell Escobedo DO Primary Care Provider: AMANDEEP Barclay Chief Complaint: si HPI NPU History of Present Illness Latesha Wilhelm is a 54 year old female with history of schizoaffective disorder and borderline personality disorder with past history of self-harm and past history of suicide attempt by overdose presented to the emergency department last evening reporting suicidal ideation over the course of the day with concerns that she may try to overdose secondary to worsening depressive symptoms. Patient has longstanding pattern of getting worked up, feeling suicidal requesting hospitalization and quickly requesting discharge after being removed from an acute stressor which she typically cites as being with an alcoholic man or secondary to her ongoing medical issues. Patient continues to report some depressive symptoms but significant improvement since yesterday and currently denies any suicidal ideation or thoughts about self-harm. She denies any current psychotic symptoms, denies any auditory or visual destinations and denies any delusions. Patient reports that she has been tolerating her home medications well and denies any side effects from them. She reports being compliant with her outpatient therapy follow-up as well as her outpatient medication management appointments. She continues to report her ongoing medical issues which she is currently being worked up for as part of her stressors. Meds NPU Home Medications Medication Instructions Recorded Confirmed Last Taken Type polyethylene glycol 3350 17 17 gm PO DAILY@0800 gm 06/13/19 07/09/20 07/09/20 History gram/dose oral powder ipratropium 0.5 mg-albuterol 3 mg See Rx Instructions .ROUTE 02/26/20 07/09/20 05/24/20 Rx (2.5 mg base)/3 mL nebulization .COMPLEX #1620 ml soln acetaminophen [Tylenol Arthritis 1,300 mg PO Q6H PRN 03/11/20 07/09/20 05/24/20 History Pain] ondansetron HCl [Zofran] 4 mg PO QID PRN #14 tab 03/19/20 07/09/20 05/23/20 Rx prochlorperazine maleate 5 mg PO TID PRN 04/14/20 07/09/20 04/23/20 History budesonide [Pulmicort] 0.5 mg INHALATION BID@0800,2100 05/24/20 07/09/20 07/09/20 History albuterol sulfate 90 mcg/actuation See Rx Instructions .ROUTE 05/25/20 07/09/20 Unknown Rx aerosol inhaler .COMPLEX #18 gram sucralfate 1 gram tablet 1 g PO QID@08,,17,21 30 Days 05/26/20 07/09/20 07/09/20 Rx #120 tab buspirone 10 mg tablet 10 mg PO TID@,, #90 tab 06/23/20 07/09/20 07/09/20 Rx hydroxyzine pamoate 50 mg capsule See Rx Instructions .ROUTE 06/23/20 07/09/20 07/09/20 Rx .COMPLEX 30 Days #150 cap lamotrigine 200 mg tablet 200 mg PO DAILY@0800 #30 tab 06/23/20 07/09/20 07/09/20 Rx lorazepam 0.5 mg tablet 0.5 mg PO DAILY PRN 30 Days #30 tab 06/23/20 07/09/20 07/09/20 Rx trazodone 300 mg tablet 300 mg PO BEDTIME@2100 #30 tab 06/23/20 07/09/20 07/08/20 Rx venlafaxine 75 mg capsule,extended 75 mg PO TID@,, #90 cap 06/23/20 07/09/20 07/09/20 Rx release 24 hr pantoprazole 40 mg tablet,delayed See Rx Instructions .ROUTE 06/29/20 07/09/20 07/09/20 Rx release .COMPLEX #90 tab nystatin 100,000 unit/gram topical 1 applic TOPICAL BID #60 g 07/08/20 07/09/20 Unknown Rx powder valbenazine [Ingrezza] 80 mg PO DAILY 07/09/20 07/09/20 07/09/20 09:00 History 80 mg hydroxyzine pamoate 100 mg PO 2100 07/10/20 07/10/20 07/08/20 21:00 History Allergies Allergy/AdvReac Type Severity Reaction Status Date / Time Penicillins Allergy Severe ALGY-Anaphy Verified 06/14/20 14:47 laxis sulfamethoxazole Allergy Severe ALGY-Hives Verified 06/14/20 14:47 [From Bactrim] Tetracyclines Allergy Severe ALGY-Hives Verified 06/14/20 14:47 gabapentin [From Neurontin] Allergy Intermediate ADR-Halluci Verified 06/14/20 14:47 nating ketorolac [From Toradol] Allergy Intermediate ALGY-Rash Verified 06/14/20 14:47 lithium Allergy Intermediate ADR-Halluci Verified 06/14/20 14:47 nating fentanyl Allergy Mild rash Verified 06/14/20 14:47 adhesive tape Allergy Rash Verified 06/14/20 14:47 codeine Allergy GI Verified 06/14/20 14:47 haloperidol [From Haldol] Allergy unknown Verified 06/14/20 14:47 metoclopramide [From Reglan] Allergy ADR-Shakine Verified 06/14/20 14:47 ss quetiapine [From Seroquel] Allergy Unknown Verified 06/14/20 14:47 trimethoprim [From Bactrim] Allergy ALGY-Hives Verified 06/14/20 14:47 ziprasidone [From Geodon] AdvReac Severe ADR-Halluci Verified 06/14/20 14:47 nating influenza virus vac qs AdvReac Mild ADR-Nausea Verified 06/14/20 14:47 19-(4 yr up) cell derived [From Flucelvax Quad [id number] (PF)] risperidone [From Risperdal] AdvReac ADR-Halluci Verified 06/14/20 14:47 nating PFSH NPU PFSH: Medical History Bladder stone Borderline personality disorder Chronic anxiety Chronic back pain greater than 3 months duration Chronic cystitis with hematuria Chronic gastritis without bleeding Chronic nausea Foreign body in bladder GERD without esophagitis Infiltrate of lung present on imaging of chest Neurogenic bladder Nicotine dependence, cigarettes, with other nicotine-induced disorders Quit in 2019 Oxygen dependent Restrictive lung disease Schizoaffective disorder, bipolar type Tertiary contraction of esophagus Urgency incontinence Surgical History H/O: hysterectomy History of appendectomy History of breast biopsy History of ureter stent Hx of cholecystectomy S/P bronchoscopy with biopsy Family History Other Asthma Cancer Diabetes Heart disease Social History Smoking and tobacco status: former smoker Quit status (tobacco): has quit using tobacco Year quit tobacco: 2019 - 1PPD x 25 Years Alcohol intake: never Lives independently: Yes Household members: spouse Marital status: Number of children: 3 Current occupational status: disabled History of recent travel: No Current gender identity: Female Other Psychiatric History: Other Psychiatric History: Patient followed at [facility] for medication management and therapy Mental Status Exam MSE Comments: Appears significantly older than stated age, short hair, sitting up on her bed, calm, cooperative, interactive, good eye contact Psychomotor activity is neither increased nor decreased, no agitation Speech is normal rate and volume, spontaneous, clear articulation, not pressured Okay, constricted, not labile Alert and oriented to person, place, time, situation Memory and concentration appear to be intact per interview Thought process, linear, no flight of ideas, no looseness of associations Thought content, no delusions, no hallucinations, no suicidal or homicidal ideation Insight and judgment appear to be intact Vitals/I&O/Wt Last Vital Signs Temp 98.2 F 07/10/20 06:00 Pulse 108 H 07/10/20 07:44 Resp 18 07/10/20 07:44 BP 121/73 07/10/20 06:00 Pulse Ox 94 07/10/20 07:44 Weight last 48 hrs Weight 88.451 kg Data NPU : 07/09/20 19:51 07/09/20 19:51 A&P Assessment and plan (1) Depression: Status: Acute (2) Suicidal ideation: Status: Acute Additional A&P Information Patient presenting with worsening depressive symptoms and suicidal ideation and currently reporting intermittent depressive symptoms and passive suicidal ideation with no active intent or plan with ongoing medical issues exacerbating her symptoms VOLUNTARY ADMIT to inpatient psychiatry RESTART home medications Continue to monitor Encourage patient to dissipate in unit activities to include group sessions and unit milieu Involuntary Hold Information 96 Hour Hold: 96 Hour Involuntary Admission: No Attestations NPU Medical Necessity Statement*: Patient requires psychiatric hospitalization for observation as well as evaluation for need for medication stabilization Anticipate hospital stay to exceed 2 midnights Time Spent in Patient Care: Greater than 35 minutes (>than 50% of time spent in counselling and/or direct pt care on unit). Coding Level of Care Code Acute Monotype Mechanic for Shellie Guallpa Diagnoses Depression F32.9 Suicidal ideation R45.851
[2020-07-10 14:00] VITALS: BP 110/64; PULSE 67; RESP 18; TEMP 37.3; O2SAT 93
--- NOTE | 2020-07-10 14:19 | PC.NURSE ---
Addendum entered by Nava Scott LPN 07/10/20 15:53: prn med effective no further c/o anxiety Original Note: PRN VISTARIL 50 MG GIVEN PO PER PT C/O STATED ANXIETY. PT SPECIFICALLY ASKING FOR ATIVAN NO OUTWARD S/S OF ANXIETY NOTED. MOOD IS CALM, VOICE IS LOW & STABLE. WILL CONT TO MONITOR
--- NOTE | 2020-07-10 17:27 | PC.NURSE ---
pt refused Nystatin powder
--- NOTE | 2020-07-10 18:17 | PM.NPTHER ---
NPU Therapy Progress Note Therapy Progress Note Date: 07/10/20 Time In: 17:50 Time Out: 17:55 Symptoms Reported: none reported, noted to be polite and brightened upon mentioning i worked with her therapist, Pan Gutierrez Mood: polite Progress Note: DIRECTOR OF OUTPATIENT SERVICES introduced herself and asked Latesha if she would like to speak with her today; however, Latesha politely declines. She mentions she is feeling better now . She is lying down resting in the dark. She does roll over to speak with DIRECTOR OF OUTPATIENT SERVICES. DIRECTOR OF OUTPATIENT SERVICES mentions that she noticed she sees Pan for therapy and Latesha brightens and says that she hopes she is able to get an apt. with him next week and to tell him i'm ok now . Intervention: Listening, educating Reported Goals Before Discharge: none reported
[2020-07-10] MEDS: hyDROXYzine 25 mg Capsule 100 MG PO (21:00)
[2020-07-10 21:24] VITALS: BP 105/59; PULSE 81; RESP 17; TEMP 36.2; O2SAT 94
--- NOTE | 2020-07-10 21:29 | PC.NURSE ---
PM Assessment Pt is resting in her room at this time, Heart sounds are normal s1 and s2, Pt lung sounds are mildly diminished bilaterally throughout, Pt denies SI/HI, pt denies pain , pt denies AH/VH at this time. Pt does report increased anxiety and a hard time with achieving sleep. Pt is cooperative with staff and smiled as she told nurse, I may get to go home in the morning.
--- NOTE | 2020-07-11 00:39 | PC.NURSE ---
bEHAVIOR PT HAS SLEPT SINCE 2099 PEACEFULLY
[2020-07-11 06:00] VITALS: BP 119/61; PULSE 82; RESP 16; TEMP 36.9; O2SAT 92
[2020-07-11] MEDS: ipratropium-albuterol 3 mL Neb INHALATION (06:54)
[2020-07-11 06:57] VITALS: PULSE 102; RESP 18; O2SAT 95
[2020-07-11] MEDS: budesonide 0.5 mg/2 mL Neb INHALATION (07:00)
[2020-07-11 07:02] VITALS: PULSE 102; RESP 18; O2SAT 97
[2020-07-11] MEDS: sucralfate 1 gm Tablet PO ×3 (08:02→16:58)
[2020-07-11] MEDS: BuSPIRONE 10 mg Tablet PO ×2 (08:02→12:37)
[2020-07-11] MEDS: lamoTRIgine 100 mg Tablet 200 MG PO (08:02)
[2020-07-11] MEDS: hyDROXYzine 25 mg Capsule 50 MG PO ×3 (08:03→16:58)
[2020-07-11] MEDS: pantoprazole DR 40 mg Tablet PO (08:03)
--- NOTE | 2020-07-11 08:04 | PC.NURSE ---
refused scheduled Miralax and Nystatin powder
--- NOTE | 2020-07-11 10:23 | P.PN_ITS ---
Subjective NPU Subjective: Interval history: Patient reports significant improvement in mood symptoms, denies any interval suicidal ideation Denies any interval psychotic symptoms She continues to report intermittent anxiety symptoms which she states exacerbate her gastrointestinal symptoms Reports improved appetite Reports improved sleep Reports being compliant with her medication and denies any medication side effects Mental Status Exam 2 MSE Comments: Appropriately groomed and dressed, well kempt, sitting up on her bed, calm, cooperative, interactive, good eye contact Psychomotor activity is neither increased nor decreased, no agitation Speech is normal rate and volume, spontaneous, clear articulation, not pressured Pretty good, full range, not labile Alert and oriented to person, place, time, situation Memory and concentration appear to be intact per interview Thought process, linear, no flight of ideas, no looseness of associations Thought content, no delusions, no hallucinations, no suicidal or homicidal ideation Insight and judgment appear to be intact Vitals/I&O/Wt Last Vital Signs Temp 98.4 F 07/11/20 06:00 Pulse 102 H 07/11/20 07:02 Resp 18 07/11/20 07:02 BP 119/61 07/11/20 06:00 Pulse Ox 97 07/11/20 07:02 Weight last 48 hrs Weight 88.451 kg Data NPU : 07/09/20 19:51 07/09/20 19:51 A&P Assessment and plan (1) Suicidal ideation: Status: Acute (2) Depression: Status: Acute Qualifiers: Depression Type: unspecified Qualified Code(s): F32.9 - Major depressive disorder, single episode, unspecified (3) Borderline personality disorder: Status: Acute (4) Chronic anxiety: Status: Acute Additional A&P Information Patient reports significantly improved mood symptoms, denies any interval suicidal ideation but continues to report persistent anxiety symptoms which are exacerbated by concerns about her gastrointestinal problems. CONTINUE current medication, continue to monitor Anticipate discharge tomorrow Involuntary Hold Information 96 Hour Hold: 96 Hour Involuntary Admission: No Attestations NPU Medical Necessity Statement*: Continues require psychiatric hospitalization for observation and ensure safe discharge Coding Level of Care Code Acute Green Chain Puller for Shellie Guallpa Diagnoses Suicidal ideation R45.851 Depression F32.9 Depression Type: unspecified Borderline personality disorder F60.3 Chronic anxiety F41.9
[2020-07-11 14:00] VITALS: BP 106/65; PULSE 64; RESP 18; TEMP 36.2; O2SAT 97
--- NOTE | 2020-07-11 18:14 | P.DS_ITS ---
Diagnoses at Discharge Discharge Diagnosis (1) Suicidal ideation: Status: Acute (2) Depression: Status: Acute Qualifiers: Depression Type: unspecified Qualified Code(s): F32.9 - Major depressive disorder, single episode, unspecified (3) Borderline personality disorder: Status: Acute (4) Chronic anxiety: Status: Acute Reason for Visit Reason for Visit: si Hospital Course Hospital Course Patient requesting to leave AGAINST MEDICAL ADVICE after presenting to the emergency department with worsening depressive symptoms and suicidal ideation with concerns about hurting herself. Patient was admitted to the inpatient psychiatry unit for observation as well as evaluation for need to make medication adjustments. Patient initially reported significant improvement in depressive symptoms and was denying any suicidal ideation but continue to report intermittent depressive symptoms. Patient requested to leave AGAINST MEDICAL ADVICE during second day of observation prior to medication adjustments. Patient was able to communicate her understanding of her condition, risks, benefits, alternatives as well as consequences of her decision. Patient also understood that by leaving AGAINST MEDICAL ADVICE that she would not be receiving any medication and would not have any coordination for post discharge follow-up. Low to moderate risk of harm to self given longstanding history of self harming behavior in the context of acute stressors with borderline personality in which patient at times demonstrates maladaptive coping strategies to include self-harm with unexpected, impulsive behavior. Risk medication included psychiatric hospitalization for observation and assessment for medication stabilization. Patient elected to leave AGAINST MEDICAL ADVICE prior to medication adjustments and coordination for post discharge appointments. Involuntary Hold Information 96 Hour Hold: 96 Hour Involuntary Admission: No Mental Status Exam MSE Comments: Lying in bed, appropriately groomed and dressed, calm, cooperative, interactive, good eye contact Psychomotor activity is neither increased nor decreased, no agitation Speech is normal rate and volume, spontaneous, clear articulation, not pressured I feel okay, constricted, not labile Alert and oriented to person, place, time, situation Memory and concentration appear to be intact per interview Thought process, linear, no flight of ideas, no looseness of associations Thought content, no delusions, no hallucinations, no suicidal or homicidal ideation Insight and judgment appear to be intact Discharge Data Data Completed and Pending: Completed Studies During Hospitalization Category Date Time Status CT kidney stone 7 [id number] Stat Cat Scan 07/09/20 20:59 Completed Vitals: Last Vital Signs Temp 97.2 F L 07/11/20 14:00 Pulse 64 07/11/20 14:00 Resp 18 07/11/20 14:00 BP 106/65 07/11/20 14:00 Pulse Ox 97 07/11/20 14:00 Discharge Plan Discharge Patient Disposition: Home Condition: Stable Prescriptions: Continued buspirone 10 mg tablet 10 mg PO TID@,, Qty: 90 RF: 1 hydroxyzine pamoate 50 mg capsule See Rx Instructions .ROUTE .COMPLEX 30 Days Qty: 150 RF: 1 lorazepam 0.5 mg tablet 0.5 mg PO DAILY PRN (Reason: Anxiety) 30 Days Qty: 30 RF: 1 lamotrigine 200 mg tablet 200 mg PO DAILY@0800 Qty: 30 RF: 1 venlafaxine 75 mg capsule,extended release 24hr 75 mg PO TID@,, Qty: 90 RF: 1 trazodone 300 mg tablet 300 mg PO BEDTIME@2099 Qty: 30 RF: 1 polyethylene glycol 3350 [Miralax] 17 gram/dose powder 17 gm PO DAILY@0800 RF: 0 ipratropium-albuterol 0.5 mg-3 mg(2.5 mg base)/3 mL solution for nebulization See Rx Instructions .ROUTE .COMPLEX Qty: 1620 RF: 3 albuterol sulfate [Ventolin HFA] 90 mcg/actuation HFA aerosol inhaler See Rx Instructions .ROUTE .COMPLEX Qty: 18 RF: 3 sucralfate 1 gram tablet 1 g PO QID@,,,21 30 Days Qty: 120 RF: 0 pantoprazole 40 mg tablet,delayed release (DR/EC) See Rx Instructions .ROUTE .COMPLEX Qty: 90 RF: 0 nystatin 100,000 unit/gram powder 1 applic topical BID Qty: 60 RF: 1 budesonide [Pulmicort] 0.5 mg/2 mL suspension for nebulization 0.5 mg INHALATION BID@0800,2100 RF: 0 acetaminophen [Tylenol Arthritis Pain] 650 mg Tablet Extended Release 1,300 mg PO Q6H PRN (Reason: Pain) RF: 0 ondansetron HCl [Zofran] 4 mg tablet 4 mg PO QID PRN (Reason: nausea and vomiting) Qty: 14 RF: 0 prochlorperazine maleate 5 mg tablet 5 mg PO TID PRN (Reason: Nausea) RF: 0 Ingrezza 80 mg capsule 80 mg PO DAILY RF: 0 hydroxyzine pamoate 100 mg Capsule 100 mg PO 2100 RF: 0 Referrals: Dara Tavera FNP [Primary Care Provider] - Discharge Attestations NPU Time Spent in Discharge Care*: less than 30 min Status at Discharge: Cognitive status at discharge: cognitively intact , Behavioral status at discharge: cooperative , Coding Level of Care Code Acute Day Habilitation Supervisor for g Fwd Diagnoses Suicidal ideation R45.851 Depression F32.9 Depression Type: unspecified Borderline personality disorder F60.3 Chronic anxiety F41.9
[2020-07-11 18:43] VITALS: BP 106/65; PULSE 64; RESP 18; TEMP 36.2; O2SAT 97
== END 2020-07-11 18:43 | disposition left against medical advice (07) | DRG 880 ==
LOC: ER 22:22 → NP 22:37
PROVIDERS: Admitting Provider Psychiatry & Neurology Psychiatry; Emergency Provider Family Medicine; PCP Registered Nurse; Visit Provider Psychiatry & Neurology Psychiatry
DX: F41.8 Other specified anxiety disorders (principal); R45.851 Suicidal ideations; F60.3 Borderline personality disorder; Z53.29 Procedure and treatment not carried out because of patient's decision for other reasons
CPT/HCPCS: 12345; 74176; 80053; 80306; 80307; 81003; 84443; 85025; 93005; 94640; 99284; J7626

== ENCOUNTER → 2020-07-20 11:20 | Outpatient (BNVA) | payer MEDICARE, MEDICAID, SELFPAY | PROVIDERS: PCP Registered Nurse; Visit Provider Urology | DX: N31.9 Neuromuscular dysfunction of bladder, unspecified (principal); N30.21 Other chronic cystitis with hematuria; R33.9 Retention of urine, unspecified | CPT/HCPCS: 81003; 87086 ==

== ENCOUNTER → 2020-07-23 10:39 | Outpatient (BNVA) | payer MEDICARE, MEDICAID, SELFPAY | PROVIDERS: PCP Registered Nurse; Visit Provider Nurse Practitioner | DX: F60.3 Borderline personality disorder (principal); F25.0 Schizoaffective disorder, bipolar type | CPT/HCPCS: 99214 ==

== ENCOUNTER 2020-08-10 20:37 | Emergency (ER) | payer MEDICARE, MEDICAID, SELFPAY ==
[2020-08-10 20:38] VITALS: BP 127/96; PULSE 84; RESP 18; TEMP 36.6; O2SAT 98; BMI 31.9
--- NOTE | 2020-08-10 20:43 | ECG_ITS ---
[facility] Test Date: 2020-08-10 Pat Name: Latesha Wilhelm Department: Room: Gender: Female Preparer Making Department: : 1965 Requested By: Damien Urbina Order Number: [id number] Alice MD: Freida Sampson M.D. Measurements Intervals [place] Rate: 74 P: 57 CA: 162 QRS: 32 QRSD: 105 T: 43 QT: 421 QTc: 468 Interpretive Statements SINUS RHYTHM Compared to ECG 07/09/2020 19:53:18 No significant changes Electronically Signed On 08-11-2020 5:52:58 BRANCH CUSTOMER SERVICE REPRESENTATIVE by Freida Sampson M.D. [id number]
--- NOTE | 2020-08-10 20:43 | XR_ITS ---
WS: [id number] Exam: XR chest 1V portable [id number] Date/Time of Exam: 08/10/2020 8:44 PM Reason For Exam: cp Comparison 06/14/2020. Findings: The lungs are clear and fully expanded. Costophrenic angles are sharp. No infiltrates. Bronchovascula r relief appears normal. Cardiac silhouette is unremarkable. Bony elements are intact. XR/XR chest 1V portable [id number] IMPRESSION: Unremarkable chest radiograph.
--- NOTE | 2020-08-10 20:51 | ED_ITS ---
HPI - Chest Pain General: Chief Complaint: Chest Pain Stated Complaint: CHEST DISCOMFORT Time Seen by Provider: 08/10/20 20:38 Source: patient and EMS Mode of arrival: EMS Limitations: no limitations History of Present Illness: HPI narrative: Is a 54-year-old female who is very well-known to the ER states she started having palpitations along with some chest pain about 3 hours ago. She states that she does feel like her heart was skipping a beat. She denies any pain currently. Denies any shortness of breath. Denies any worsening improving factors. Denies any vomiting. Associated symptoms: Reports palpitations; Deny abdominal pain, dyspnea, fever(s), nausea or vomiting Review of Systems Const: Denies: fever(s), chills, body aches or change in appetite Eyes: Denies: blurry vision or eye discomfort ENMT: Denies: throat pain or dental pain Card: Reports: chest pain and palpitations Resp: Denies: dyspnea GI: Denies: abdominal pain, nausea, vomiting or diarrhea : Denies: dysuria Musc: Denies: neck pain or back pain Skin/Breast: Denies: rash Neuro: Denies: headache(s) Psych: Denies: depression Wilbur/Lymph: Denies: easy bruising All/Imm: Denies: urticaria PFSH ED PFSH: Medical History Bladder stone Borderline personality disorder Chronic anxiety Chronic back pain greater than 3 months duration Chronic cystitis with hematuria Chronic gastritis without bleeding Chronic nausea Cystitis cystica Foreign body in bladder GERD without esophagitis Infiltrate of lung present on imaging of chest Neurogenic bladder Nicotine dependence, cigarettes, with other nicotine-induced disorders Quit in 2019 Oxygen dependent Restrictive lung disease Schizoaffective disorder, bipolar type Tertiary contraction of esophagus Urgency incontinence Surgical History H/O: hysterectomy History of appendectomy History of breast biopsy History of ureter stent Hx of cholecystectomy S/P bronchoscopy with biopsy Family History Mother No problems noted. Father No problems noted. Other Asthma Cancer Diabetes Heart disease Social History Smoking and tobacco status: current some day smoker Alcohol intake: never Lives independently: Yes Household members: spouse Marital status: Number of children: 3 Current occupational status: disabled History of recent travel: No Current gender identity: Female Female Reproductive History: Date of last menstrual period: 06/19/95 Physical Exam Const: COMMON NORMALS: no acute distress, patient oriented x3 and healthy appearing HENMT: COMMON NORMALS: normocephalic and atraumatic HEAD & SCALP: normocephalic and atraumatic Eye: COMMON NORMALS: Equal, round and reactive pupils present and EOMs intact bilaterally PUPIL: Yes Equal, round and reactive pupils present Neck/C-Spine: COMMON NORMALS: full ROM and supple Chest: COMMONS NORMALS: normal inspection of the chest and normal palpation of entire chest wall Resp: COMMON NORMALS: normal respiratory effort, No retractions, No use of accessory muscles and clear to auscultation bilaterally AUSCULTATION: clear to auscultation bilaterally Cardio: COMMON NORMALS: regular rate, regular rhythm and No murmurs present (Cardio) RATE: regular rate RHYTHM: regular rhythm GI: COMMON NORMALS: Normal to inspection, nondistended, normoactive bowel sounds present, Soft to palpation, non-tender and no masses PALPATION: Yes Soft to palpation Extremity: COMMON NORMALS: normal to inspection and full ROM Neuro: COMMON NORMALS: patient oriented x3, moves all extremities and no focal motor deficits Psych: COMMON NORMALS: mental status grossly normal, Normal thought process present and cooperative THOUGHT PROCESS: Normal thought process present Skin: COMMON NORMALS: no rashes or lesions noted and no wounds GENERAL SKIN EXAM: no rashes or lesions noted Course Vital Signs: Vital signs: Vital Signs Temperature 97.8 F 08/10/20 20:38 Pulse Rate 75 08/10/20 21:33 Respiratory Rate 18 08/10/20 21:53 Blood Pressure 116/60 08/10/20 21:33 Pulse Oximetry 97 08/10/20 21:33 MDM - Chest Pain MDM Narrative: Medical decision making narrative: Latesha presents here with chest pains atypical in nature. Troponin and blood work are all normal and she had no chest pain here. She is well-appearing here has no signs of acute coronary syndrome or pulmonary bruising. She is stable for discharge and is to follow-up with PCP and return if worsening. Lab Data: Labs: Lab Results 08/10/20 08/10/20 08/10/20 Range/Units 21:30 21:30 21:30 WBC 10.0 (4.0-10.0) 10^3/ uL RBC 4.43 (4.1-5.3) 10^6/u L Hgb 12.9 (11.5-15.3) g/dL Hct 40.3 (37.0-47.0) % MCV 91.0 (81-99) fL MCH 29.1 (28.0-34.0) pg MCHC 32.0 (30.0-36.0) g/dL RDW 15.7 H (12.1-15.1) % Plt Count 216 (130-400) 10^3/c mm MPV 10.5 H (7.4-10.4) fL Neut % (Auto) 62.0 % Lymph % (Auto) 24.7 % Saline % (Auto) 8.1 % Eos % (Auto) 4.2 % Baso % (Auto) 0.8 % Neut # (Auto) 6.21 (1.8-7.7) 10^3/u L Lymph # (Auto) 2.5 (0.8-4.8) 10^3/u L Saline # (Auto) 0.8 (0.2-0.9) 10^3/u L Eos # (Auto) 0.4 (0.0-0.8) 10^3/u L Baso # (Auto) 0.1 (0.0-0.1) 10^3/u L Nucleated RBC % (a uto) 0 % Nucleated RBCs # 0.0 /100WBC Sodium 139 (136-145) mmol/L Potassium 3.7 (3.5-5.1) mmol/L Chloride 105 (98-107) mmol/L Carbon Dioxide 24 (22-29) mmol/L Anion Gap 13.7 (5-19) BUN 12 (6-20) mg/dL Creatinine 0.9 (0.5-0.9) mg/dL GFR Calculation 65.8 L (90-130) mL/min Glucose 95 (65-115) mg/dL Calculated Osmolal ity 288 (285-295) mOsm/k g Calcium 9.0 (8.5-10.5) mg/dL Total Bilirubin 0.2 (0.15-1.2) mg/dL AST 9 (0-32) U/L ALT 7 (0-33) U/L Alkaline Phosphata se 128 H (35-105) IU/L Troponin T Baselin e 6 (0-10) ng/L Total Protein 5.9 L (6.6-8.7) g/dL Albumin 3.8 (3.5-5.2) g/dL Globulin 2.1 (1.3-4.6) g/dL Imaging Data^: CXR: Attestation: I personally reviewed and interpreted this imaging study as follows: Radiologist's impression: no acute abnormality EKG Data^: EKG 1: Attestation: I personally reviewed and interpreted this EKG as follows: EKG interpretation date: 08/10/20 EKG interpretation time: 20:45 Interpretation: nsr hr [address] or t wave abnormalities qrs 105 qtc 448 Discharge Plan Discharge Patient Disposition: Home Clinical Impression: Chest pain Qualifiers: Chest pain type: unspecified Qualified Code(s): R07.9 - Chest pain, unspecified Condition: Stable Prescriptions: No Action hydroxyzine pamoate 50 mg capsule See Rx Instructions .ROUTE .COMPLEX 30 Days Qty: 150 RF: 1 lorazepam 0.5 mg tablet 0.5 mg PO DAILY PRN (Reason: Anxiety) 30 Days Qty: 30 RF: 1 lamotrigine 200 mg tablet 200 mg PO DAILY@0800 Qty: 30 RF: 1 venlafaxine 75 mg capsule,extended release 24hr 75 mg PO TID@08,13,21 Qty: 90 RF: 1 trazodone 300 mg tablet 300 mg PO BEDTIME@2100 Qty: 30 RF: 1 polyethylene glycol 3350 [Miralax] 17 gram/dose powder 17 gm PO DAILY@0800 RF: 0 methenamine hippurate 1 gram tablet 1 g PO BID Qty: 180 RF: 3 ipratropium-albuterol 0.5 mg-3 mg(2.5 mg base)/3 mL solution for nebulization See Rx Instructions .ROUTE .COMPLEX Qty: 1620 RF: 3 albuterol sulfate [Ventolin HFA] 90 mcg/actuation HFA aerosol inhaler See Rx Instructions .ROUTE .COMPLEX Qty: 18 RF: 3 sucralfate 1 gram tablet 1 g PO QID@08,13,17,21 30 Days Qty: 120 RF: 0 pantoprazole 40 mg tablet,delayed release (DR/EC) See Rx Instructions .ROUTE .COMPLEX Qty: 90 RF: 0 nystatin 100,000 unit/gram powder 1 applic topical BID Qty: 60 RF: 1 trospium 20 mg tablet See Rx Instructions .ROUTE .COMPLEX Qty: 180 RF: 3 budesonide [Pulmicort] 0.5 mg/2 mL suspension for nebulization 0.5 mg INHALATION BID@0800,2100 RF: 0 acetaminophen [Tylenol Arthritis Pain] 650 mg Tablet Extended Release 1,300 mg PO Q6H PRN (Reason: Pain) RF: 0 ondansetron HCl [Zofran] 4 mg tablet 4 mg PO QID PRN (Reason: nausea and vomiting) Qty: 14 RF: 0 prochlorperazine maleate 5 mg tablet 5 mg PO TID PRN (Reason: Nausea) RF: 0 Ingrezza 80 mg capsule 80 mg PO DAILY RF: 0 hydroxyzine pamoate 100 mg Capsule 100 mg PO 2100 RF: 0 Discharge Orders: Discharge ED (Routine); Ordered 08/10/20 Ordered By: Damien Urbina Referrals: Dara Tavera FNP [Primary Care Provider] - 1-3 days Discharge Diet: Advance as tolerated Discharge Activity: Resume usual activity Patient Instructions: Chest Pain (ED) Coding Level of Care Code ED Senior Property Accountant for Basiag Fwd Exam Comprehensive
[2020-08-10 21:32] LABS: Basophils # 0.1 10^3/uL (0.0-0.1); Basophils % 0.8 %; Eosinophils # 0.4 10^3/uL (0.0-0.8); Eosinophils % 4.2 %; Hematocrit 40.3 % (37.0-47.0); Hemoglobin 12.9 g/dL (11.5-15.3); Lymphocytes # 2.5 10^3/uL (0.8-4.8); Lymphocytes % 24.7 %; Mean Corpuscular Hemoglobin 29.1 pg (28.0-34.0); Mean Platelet Volume 10.5 fL (7.4-10.4); Monocytes # 0.8 10^3/uL (0.2-0.9); Monocytes % 8.1 %; Neutrophils # 6.21 10^3/uL (1.8-7.7); Nucleated Red Blood Cells % 0 %; Platelet Count 216 10^3/cmm (130-400); Red Blood Count 4.43 10^6/uL (4.1-5.3); Red Cell Distribution Width 15.7 % (12.1-15.1)
[2020-08-10 21:33] VITALS: BP 116/60; PULSE 75; RESP 18; O2SAT 97
[2020-08-10 21:53] VITALS: RESP 18
[2020-08-10] MEDS: morphine 4 mg/mL SDV 1 mL IVP (21:53)
[2020-08-10] MEDS: ondansetron 2 mg/ML SDV 2 mL 4 MG IVP (21:53)
[2020-08-10 22:06] LABS: Alanine Aminotransferase 7 U/L (0-33); Albumin Level 3.8 g/dL (3.5-5.2); Alkaline Phosphatase 128 IU/L (35-105); Anion Gap 13.7 (5-19); Aspartate Amino Transferase 9 U/L (0-32); Blood Urea Nitrogen 12 mg/dL (6-20); Carbon Dioxide 24 mmol/L (22-29); Chloride 105 mmol/L (98-107); Globulin 2.1 g/dL (1.3-4.6); Glomerular Filtration Rate 65.8 mL/min (90-130); Glucose 95 mg/dL (65-115); Osmolality Calculated 288 mOsm/kg (285-295); Potassium 3.7 mmol/L (3.5-5.1); Sodium 139 mmol/L (136-145); Total Bilirubin 0.2 mg/dL (0.15-1.2); Total Protein 5.9 g/dL (6.6-8.7)
[2020-08-10 22:08] LABS: Troponin(5th) Baseline 6 ng/L (0-10)
[2020-08-10 22:21] VITALS: BP 115/76; PULSE 72; RESP 16; O2SAT 95
== END 2020-08-10 22:22 | disposition home or self-care (01) ==
PROVIDERS: Emergency Provider Emergency Medicine; PCP Registered Nurse
DX: R07.9 Chest pain, unspecified (principal); Z99.81 Dependence on supplemental oxygen; F17.210 Nicotine dependence, cigarettes, uncomplicated
CPT/HCPCS: 71045; 80053; 84484; 85025; 93005; 96374; 96375; 99284; J2270; J2405

== ENCOUNTER → 2020-08-17 07:50 | Outpatient (BNVA) | payer MEDICARE, MEDICAID, SELFPAY | PROVIDERS: PCP Registered Nurse; Visit Provider Nurse Practitioner | DX: F60.3 Borderline personality disorder (principal); F25.0 Schizoaffective disorder, bipolar type | CPT/HCPCS: 99214 ==

== ENCOUNTER 2020-08-19 20:52 | Emergency (ER) | payer MEDICARE, MEDICAID, SELFPAY ==
[2020-08-19 21:01] VITALS: BP 115/77; PULSE 96; RESP 25; TEMP 36.8; O2SAT 96; BMI 31.6
--- NOTE | 2020-08-19 21:04 | XR_ITS ---
WS: [id number] Portable AP upright chest, 08/19/2020 Clinical Data: SOB, cough, fever Comparison: Portable chest, 08/10/2020. Findings: No nodules, masses or effusions are seen. The heart is normal. The pulmonary vascularity is not increased. No pneumonia or pneumothorax is seen. Monitor leads are on the lower chest wall. XR/XR chest 1V portable [id number] Impression: Negative chest.
[2020-08-19 21:05] VITALS: BP 115/77; PULSE 91; RESP 19; O2SAT 95
--- NOTE | 2020-08-19 21:23 | ECG_ITS ---
[facility] Test Date: 2020-08-19 Pat Name: Latesha Wilhelm Department: Room: Gender: Female Pan Tank Worker: : 1965 Requested By: Elva Weston I Order Number: [id number] Alice MD: Freida Sampson M.D. Measurements Intervals [place] Rate: 79 P: 53 SD: 153 QRS: 34 QRSD: 108 T: 39 QT: 421 QTc: 483 Interpretive Statements SINUS RHYTHM Compared to ECG 08/10/2020 20:45:53 No significant changes Electronically Signed On 08-20-2020 22:04:05 BOARD MIXER TENDER by Freida Sampson M.D. [id number]
[2020-08-19 21:28] LABS: Basophils # 0.1 10^3/uL (0.0-0.1); Basophils % 0.6 %; Eosinophils # 0.3 10^3/uL (0.0-0.8); Eosinophils % 2.3 %; Hematocrit 38.3 % (37.0-47.0); Hemoglobin 12.6 g/dL (11.5-15.3); Lymphocytes # 2.4 10^3/uL (0.8-4.8); Lymphocytes % 19.7 %; Mean Corpuscular HGB Conc 32.9 g/dL (30.0-36.0); Mean Corpuscular Hemoglobin 29.5 pg (28.0-34.0); Mean Corpuscular Volume 89.7 fL (81-99); Mean Platelet Volume 10.2 fL (7.4-10.4); Monocytes # 1.1 10^3/uL (0.2-0.9); Monocytes % 9.2 %; Neutrophils # 8.41 10^3/uL (1.8-7.7); Nucleated Red Blood Cells % 0 %; Platelet Count 206 10^3/cmm (130-400); Red Blood Count 4.27 10^6/uL (4.1-5.3); White Blood Count 12.4 10^3/uL (4.0-10.0)
[2020-08-19 21:33] VITALS: PULSE 86; RESP 18; O2SAT 95
[2020-08-19] MEDS: albuterol 8 gm MDI 4 PUFF INHALATION (21:33)
[2020-08-19 21:39] VITALS: PULSE 83
[2020-08-19 21:44] LABS: Lactic Sepsis W/Reflex 0.8 mmol/L (0.5-2.2)
[2020-08-19 21:46] LABS: Troponin(5th) Baseline 6 ng/L (0-10)
[2020-08-19 21:46] LABS: ABG PH Result 7.43 (7.35-7.45); Arterial Blood Gas Hematocrit 38.9 % (37-47); Base Excess ABG 1.5 mmol/L (-2.0-2.0); Blood Gas Sample Type Arterial; Carboxyhemoglobin 10.2 %THgb (0.4-20.1); HCO3 ABG 25.9 mmol/L (22-26); HGB O2 Sat 84.9 % (95-100); Methemoglobin 0.8 % (0.4-1.5); PO2 ABG 80.2 mmHg (80.0-100.0); Total Hemoglobin 12.7 g/dL (12-16)
[2020-08-19 21:47] LABS: Blood Gas Operator Identificat HARKR; Blood Gas Sample Site Brachial, right; Oxygen Device NC
[2020-08-19 21:57] VITALS: BP 109/63; PULSE 80; RESP 16; O2SAT 93
[2020-08-19 22:15] LABS: Influenza A by IFA Negative (Negative); Influenza B by IFA Negative (Negative); SARS Covid-2 Antigen Negative (Negative)
[2020-08-19 22:26] LABS: Alanine Aminotransferase 8 U/L (0-33); Aspartate Amino Transferase 9 U/L (0-32); Blood Urea Nitrogen 11 mg/dL (6-20); Carbon Dioxide 22 mmol/L (22-29); Glucose 102 mg/dL (65-115); Total Bilirubin 0.3 mg/dL (0.15-1.2)
[2020-08-19 22:40] LABS: Alkaline Phosphatase 122 IU/L (35-105); Anion Gap 14.7 (5-19); Chloride 106 mmol/L (98-107); Glomerular Filtration Rate 58.2 mL/min (90-130); Osmolality Calculated 288 mOsm/kg (285-295); Potassium 3.7 mmol/L (3.5-5.1); Sodium 139 mmol/L (136-145); Total Protein 6.1 g/dL (6.6-8.7)
[2020-08-19 22:41] LABS: Albumin Level 3.8 g/dL (3.5-5.2); Calcium 8.8 mg/dL (8.5-10.5); Globulin 2.3 g/dL (1.3-4.6)
--- NOTE | 2020-08-19 23:01 | W.ED.SOB ---
HPI - SOB/Dyspnea General: Chief Complaint: Shortness of Breath/Dyspnea Stated Complaint: resp distress Time Seen by Provider: 08/19/20 20:54 Source: patient and EMS Mode of arrival: EMS Limitations: no limitations History of Present Illness: HPI Narrative: This 54-year-old female patient presents to the emergency department with complaints of shortness of breath of 3 days duration. She also states she had a fever of 100.8. She endorses a cough, wheezing, shortness of breath. She still smokes cigarettes every day. She admits to some dizziness but no lobo syncopal episodes. She is here to be evaluated for this. MD elicited complaint: shortness of breath and cough Pertinent past history: COPD and pneumonia Onset (ago): day(s) (3) Timing: constant and progressively worsening Severity: moderate Exacerbating factors: nothing Relieving factors: nothing Known history of: COPD Associated symptoms: Reports chest congestion, chest pain, cough, fever(s), lightheadedness, myalgias and nausea; Deny abdominal pain, diaphoresis, dizziness, extremity pain, hemoptysis, orthopnea, palpitations, paresthesias, polydipsia, polyuria, rash, sense of impending doom, syncope or vomiting Treatment prior to arrival: oxygen Review of Systems General: Reports: 10 or more systems reviewed and unremarkable except in HPI and below Const: Reports: fever(s); Denies: diaphoresis Eyes: Denies: change in vision or blurry vision ENMT: Denies: throat pain, enlarged tonsils, odynophagia, hoarseness, mouth pain or swelling of lips/tongue Card: Reports: chest pain and lightheadedness; Denies: palpitations, syncope or orthopnea Resp: Reports: chest congestion; Denies: hemoptysis GI: Reports: nausea; Denies: abdominal pain or vomiting : Denies: flank pain, difficulty voiding, dysuria, urinary frequency, urinary urgency or urinary hesitancy Musc: Denies: extremity pain Skin/Breast: Denies: rash, pruritus or erythema Neuro: Denies: dizziness Endo: Denies: polyuria or polydipsia [facility] ED PFSH: Medical History Bladder stone Borderline personality disorder Chronic anxiety Chronic back pain greater than 3 months duration Chronic cystitis with hematuria Chronic gastritis without bleeding Chronic nausea Cystitis cystica Foreign body in bladder GERD without esophagitis Infiltrate of lung present on imaging of chest Neurogenic bladder Nicotine dependence, cigarettes, with other nicotine-induced disorders Quit in 2019 Oxygen dependent Restrictive lung disease Schizoaffective disorder, bipolar type Tertiary contraction of esophagus Urgency incontinence Surgical History H/O: hysterectomy History of appendectomy History of breast biopsy History of ureter stent Hx of cholecystectomy S/P bronchoscopy with biopsy Family History Mother No problems noted. Father No problems noted. Other Asthma Cancer Diabetes Heart disease Social History Smoking and tobacco status: current some day smoker Alcohol intake: never Lives independently: Yes Household members: spouse Marital status: Number of children: 3 Current occupational status: disabled History of recent travel: No Current gender identity: Female Female Reproductive History: Date of last menstrual period: 06/19/95 Physical Exam Const: COMMON NORMALS: no acute distress, average body habitus, patient oriented x3, no limitations, healthy appearing, alert and well nourished HENMT: COMMON NORMALS: normocephalic, atraumatic and moist oral mucous membranes HEAD & SCALP: normocephalic and atraumatic Neck/C-Spine: COMMON NORMALS: no meningeal signs and no JVD Chest: COMMONS NORMALS: normal inspection of the chest and normal palpation of entire chest wall Resp: COMMON NORMALS: normal respiratory effort, No retractions, No use of accessory muscles and percussion normal AUSCULTATION: crackles Laterality: right and wheezes expiratory wheezes PERCUSSION: percussion normal Cardio: COMMON NORMALS: no JVD, regular rate, regular rhythm, S1 normal heart sound present, S2 normal heart sound present, No gallops present (Cardio), No clicks present (Cardio), No murmurs present (Cardio), No rub (Cardio) and Peripheral pulses 2+ throughout RATE: regular rate RHYTHM: regular rhythm HEART SOUNDS: S1 normal heart sound present and S2 normal heart sound present PERIPHERAL PULSES: Peripheral pulses 2+ throughout GI: COMMON NORMALS: Normal to inspection, nondistended, normoactive bowel sounds present, Soft to palpation, non-tender, No hepatosplenomegaly present, no masses and no bruits PALPATION: Yes Soft to palpation and Yes No hepatosplenomegaly present Extremity: COMMON NORMALS: normal to inspection, full ROM, capillary refill normal, no calf tenderness and no pedal edema Neuro: COMMON NORMALS: patient oriented x3 SENSORIUM/ORIENTATION: Yes alert MENINGEAL SIGNS: Yes no meningeal signs Skin: COMMON NORMALS: no rashes or lesions noted, no wounds, turgor normal, no jaundice, no petechiae and no mottling GENERAL SKIN EXAM: no rashes or lesions noted and turgor normal Course Reevaluation(s): Reevaluation #1: Discussed her lab and imaging findings with her. Unremarkable. Explained that we will treat her as a case of a COPD exacerbation with oral corticosteroids and antibiotics. Negative high-sensitivity troponin. Since her symptoms have been ongoing for 3 days this is unlikely to be cardiac cause for her symptoms. She voiced understanding and is in agreement with the plan. Time: 23:13 Vital Signs: Vital signs: Vital Signs Temperature 98.2 F 08/19/20 21:01 Pulse Rate 80 08/19/20 21:57 Respiratory Rate 18 08/19/20 23:49 Blood Pressure 109/63 08/19/20 21:57 Pulse Oximetry 92 08/19/20 23:49 MDM - SOB/Dyspnea MDM Narrative: Medical decision making narrative: 54-year-old female patient who presents to the emergency department with shortness of breath. Evaluation in the emergency department is consistent with COPD exacerbation. Vital signs were all stable in the emergency department and she is discharged home with a prescription for oral corticosteroids and azithromycin. She is to follow-up with her primary care provider. Lab Data: Labs: Lab Results 08/19/20 08/19/20 08/19/20 Range/Units 21:24 21:24 21:24 WBC 12.4 H (4.0-10.0) 10^3/ uL RBC 4.27 (4.1-5.3) 10^6/u L Hgb 12.6 (11.5-15.3) g/dL Hct 38.3 (37.0-47.0) % MCV 89.7 (81-99) fL MCH 29.5 (28.0-34.0) pg MCHC 32.9 (30.0-36.0) g/dL RDW 16.0 H (12.1-15.1) % Plt Count 206 (130-400) 10^3/c mm MPV 10.2 (7.4-10.4) fL Neut % (Auto) 68.0 % Lymph % (Auto) 19.7 % [place] % (Auto) 9.2 % Eos % (Auto) 2.3 % Baso % (Auto) 0.6 % Neut # (Auto) 8.41 H (1.8-7.7) 10^3/u L Lymph # (Auto) 2.4 (0.8-4.8) 10^3/u L [place] # (Auto) 1.1 H (0.2-0.9) 10^3/u L Eos # (Auto) 0.3 (0.0-0.8) 10^3/u L Baso # (Auto) 0.1 (0.0-0.1) 10^3/u L Nucleated RBC % (a uto) 0 % Nucleated RBCs # 0.0 /100WBC Specimen Type Sample Site ABG pH (7.35-7.45) ABG pCO2 (35-45) mmHg ABG pO2 (80.0-100.0) mmH g ABG HCO3 (22-26) mmol/L ABG Base Excess (-2.0-2.0) mmol/ L Juan Test Hematocrit (37-47) % Hgb O2 Saturation (95-100) % Carboxyhemoglobin (0.4-20.1) %THgb Methemoglobin (0.4-1.5) % Total Hemoglobin (12-16) g/dL O2 Delivery Device O2 Liters/Min % Garment Fitter ID Sodium 139 (136-145) mmol/L Potassium 3.7 (3.5-5.1) mmol/L Chloride 106 (98-107) mmol/L Carbon Dioxide 22 (22-29) mmol/L Anion Gap 14.7 (5-19) BUN 11 (6-20) mg/dL Creatinine 1.0 H (0.5-0.9) mg/dL GFR Calculation 58.2 L (90-130) mL/min Glucose 102 (65-115) mg/dL Calculated Osmolal ity 288 (285-295) mOsm/k g Lactic Acid 0.8 (0.5-2.2) mmol/L Calcium 8.8 (8.5-10.5) mg/dL Total Bilirubin 0.3 (0.15-1.2) mg/dL AST 9 (0-32) U/L ALT 8 (0-33) U/L Alkaline Phosphata se 122 H (35-105) IU/L Troponin T Baselin e (0-10) ng/L Total Protein 6.1 L (6.6-8.7) g/dL Albumin 3.8 (3.5-5.2) g/dL Globulin 2.3 (1.3-4.6) g/dL Influenza Type A A g (Negative) Influenza Type B A g (Negative) SARS-CoV-2 Ag (Rap id) (Negative) 08/19/20 08/19/20 08/19/20 Range/Units 21:24 21:36 21:36 WBC (4.0-10.0) 10^3/ uL RBC (4.1-5.3) 10^6/u L Hgb (11.5-15.3) g/dL Hct (37.0-47.0) % MCV (81-99) fL MCH (28.0-34.0) pg MCHC (30.0-36.0) g/dL RDW (12.1-15.1) % Plt Count (130-400) 10^3/c mm MPV (7.4-10.4) fL Neut % (Auto) % Lymph % (Auto) % [place] % (Auto) % Eos % (Auto) % Baso % (Auto) % Neut # (Auto) (1.8-7.7) 10^3/u L Lymph # (Auto) (0.8-4.8) 10^3/u L [place] # (Auto) (0.2-0.9) 10^3/u L Eos # (Auto) (0.0-0.8) 10^3/u L Baso # (Auto) (0.0-0.1) 10^3/u L Nucleated RBC % (a uto) % Nucleated RBCs # /100WBC Specimen Type Arterial Sample Site Brachial, right ABG pH 7.43 (7.35-7.45) ABG pCO2 39.0 (35-45) mmHg ABG pO2 80.2 (80.0-100.0) mmH g ABG HCO3 25.9 (22-26) mmol/L ABG Base Excess 1.5 (-2.0-2.0) mmol/ L Juan Test N/a Hematocrit 38.9 (37-47) % Hgb O2 Saturation 84.9 L (95-100) % Carboxyhemoglobin 10.2 (0.4-20.1) %THgb Methemoglobin 0.8 (0.4-1.5) % Total Hemoglobin 12.7 (12-16) g/dL O2 Delivery Device Nc O2 Liters/Min 2.0 % Garment Fitter ID Harkr Sodium (136-145) mmol/L Potassium (3.5-5.1) mmol/L Chloride (98-107) mmol/L Carbon Dioxide (22-29) mmol/L Anion Gap (5-19) BUN (6-20) mg/dL Creatinine (0.5-0.9) mg/dL GFR Calculation (90-130) mL/min Glucose (65-115) mg/dL Calculated Osmolal ity (285-295) mOsm/k g Lactic Acid (0.5-2.2) mmol/L Calcium (8.5-10.5) mg/dL Total Bilirubin (0.15-1.2) mg/dL AST (0-32) U/L ALT (0-33) U/L Alkaline Phosphata se (35-105) IU/L Troponin T Baselin e 6 (0-10) ng/L Total Protein (6.6-8.7) g/dL Albumin (3.5-5.2) g/dL Globulin (1.3-4.6) g/dL Influenza Type A A g Negative (Negative) Influenza Type B A g Negative (Negative) SARS-CoV-2 Ag (Rap id) (Negative) 08/19/20 Range/Units 21:36 WBC (4.0-10.0) 10^3/ uL RBC (4.1-5.3) 10^6/u L Hgb (11.5-15.3) g/dL Hct (37.0-47.0) % MCV (81-99) fL MCH (28.0-34.0) pg MCHC (30.0-36.0) g/dL RDW (12.1-15.1) % Plt Count (130-400) 10^3/c mm MPV (7.4-10.4) fL Neut % (Auto) % Lymph % (Auto) % [place] % (Auto) % Eos % (Auto) % Baso % (Auto) % Neut # (Auto) (1.8-7.7) 10^3/u L Lymph # (Auto) (0.8-4.8) 10^3/u L [place] # (Auto) (0.2-0.9) 10^3/u L Eos # (Auto) (0.0-0.8) 10^3/u L Baso # (Auto) (0.0-0.1) 10^3/u L Nucleated RBC % (a uto) % Nucleated RBCs # /100WBC Specimen Type Sample Site ABG pH (7.35-7.45) ABG pCO2 (35-45) mmHg ABG pO2 (80.0-100.0) mmH g ABG HCO3 (22-26) mmol/L ABG Base Excess (-2.0-2.0) mmol/ L Juan Test Hematocrit (37-47) % Hgb O2 Saturation (95-100) % Carboxyhemoglobin (0.4-20.1) %THgb Methemoglobin (0.4-1.5) % Total Hemoglobin (12-16) g/dL O2 Delivery Device O2 Liters/Min % Garment Fitter ID Sodium (136-145) mmol/L Potassium (3.5-5.1) mmol/L Chloride (98-107) mmol/L Carbon Dioxide (22-29) mmol/L Anion Gap (5-19) BUN (6-20) mg/dL Creatinine (0.5-0.9) mg/dL GFR Calculation (90-130) mL/min Glucose (65-115) mg/dL Calculated Osmolal ity (285-295) mOsm/k g Lactic Acid (0.5-2.2) mmol/L Calcium (8.5-10.5) mg/dL Total Bilirubin (0.15-1.2) mg/dL AST (0-32) U/L ALT (0-33) U/L Alkaline Phosphata se (35-105) IU/L Troponin T Baselin e (0-10) ng/L Total Protein (6.6-8.7) g/dL Albumin (3.5-5.2) g/dL Globulin (1.3-4.6) g/dL Influenza Type A A g (Negative) Influenza Type B A g (Negative) SARS-CoV-2 Ag (Rap id) Negative (Negative) EKG Data^: EKG 1: Attestation: I personally reviewed and interpreted this EKG as follows: EKG Interpretation Date: 08/19/20 EKG interpretation time: 21:33 Prior EKG tracings: not available for review Interpretation: Normal sinus rhythm. Heart rate 79 bpm. Normal axis. No ST changes. Discharge Plan Discharge Patient Disposition: Home Clinical Impression: Acute exacerbation of chronic obstructive airways disease Cigarette nicotine dependence Qualifiers: Substance use status: uncomplicated Qualified Code(s): F17.210 - Nicotine dependence, cigarettes, uncomplicated Condition: Stable Prescriptions: New azithromycin 250 mg tablet See Rx Instructions .ROUTE .COMPLEX Qty: 6 RF: 0 prednisone 20 mg tablet 60 mg PO DAILY 5 Days Qty: 15 RF: 0 Continued lorazepam 0.5 mg tablet 0.5 mg PO DAILY PRN (Reason: Anxiety) 30 Days Qty: 30 RF: 1 polyethylene glycol 3350 [Miralax] 17 gram/dose powder 17 gm PO DAILY@0800 RF: 0 methenamine hippurate 1 gram tablet 1 g PO BID Qty: 180 RF: 3 buspirone 15 mg tablet 15 mg PO TID Qty: 90 RF: 1 hydroxyzine pamoate 50 mg capsule See Rx Instructions .ROUTE .COMPLEX 30 Days Qty: 150 RF: 1 lamotrigine 200 mg tablet 200 mg PO DAILY@0800 Qty: 30 RF: 1 venlafaxine 75 mg capsule,extended release 24hr 75 mg PO TID@08,13,21 Qty: 90 RF: 1 Ingrezza 80 mg capsule 80 mg PO DAILY Qty: 30 RF: 2 trazodone 300 mg tablet 300 mg PO BEDTIME@2100 Qty: 30 RF: 1 ipratropium-albuterol 0.5 mg-3 mg(2.5 mg base)/3 mL solution for nebulization See Rx Instructions .ROUTE .COMPLEX Qty: 1620 RF: 3 albuterol sulfate [Ventolin HFA] 90 mcg/actuation HFA aerosol inhaler See Rx Instructions .ROUTE .COMPLEX Qty: 18 RF: 3 sucralfate 1 gram tablet 1 g PO QID@08,13,17,21 30 Days Qty: 120 RF: 0 pantoprazole 40 mg tablet,delayed release (DR/EC) See Rx Instructions .ROUTE .COMPLEX Qty: 90 RF: 0 nystatin 100,000 unit/gram powder 1 applic topical BID Qty: 60 RF: 1 trospium 20 mg tablet See Rx Instructions .ROUTE .COMPLEX Qty: 180 RF: 3 budesonide [Pulmicort] 0.5 mg/2 mL suspension for nebulization 0.5 mg INHALATION BID@0800,2100 RF: 0 acetaminophen [Tylenol Arthritis Pain] 650 mg Tablet Extended Release 1,300 mg PO Q6H PRN (Reason: Pain) RF: 0 ondansetron HCl [Zofran] 4 mg tablet 4 mg PO QID PRN (Reason: nausea and vomiting) Qty: 14 RF: 0 prochlorperazine maleate 5 mg tablet 5 mg PO TID PRN (Reason: Nausea) RF: 0 Discharge Orders: Discharge ED (Routine); Ordered 08/19/20 Ordered By: Elva Weston Referrals: Dara Tavera FNP [Primary Care Provider] - 1-3 days Discharge Diet: Usual diet Discharge Activity: Increase activity as tolerated Patient Instructions: Cigarette Smoking and Your Health (GEN), Chronic Obstructive Pulmonary Disease (ED) Activity Restrictions/Additional Instructions: Return for any new or worsening symptoms. Follow-up with your primary care provider within 3 days. Take medications as prescribed. It is important that you quit smoking to prevent recurrence of these symptoms. Coding Level of Care Code ED Data Reviewer for Shellie Fwd Exam Comprehensive
[2020-08-19] MEDS: azithromycin 250 mg Tablet 500 MG PO (23:48)
[2020-08-19 23:49] VITALS: RESP 18; O2SAT 92
[2020-08-19] MEDS: morphine 4 mg/mL SDV 1 mL IM (23:49)
[2020-08-19] MEDS: predniSONE 20 mg Tablet 60 MG PO (23:49)
[2020-08-20 00:07] VITALS: BP 101/58; PULSE 75; RESP 23; O2SAT 90
[2020-08-20 15:01] LABS: Coronavirus Test Green County Not Detected
--- NOTE | 2020-08-20 16:14 | PC.NURSE ---
Patient called to be notified of COVID results. No answer at this time, message left.
== END 2020-08-20 00:02 | disposition home or self-care (01) ==
PROVIDERS: Emergency Provider Family Medicine; PCP Registered Nurse
DX: J44.1 Chronic obstructive pulmonary disease with (acute) exacerbation (principal); F17.210 Nicotine dependence, cigarettes, uncomplicated; Z99.81 Dependence on supplemental oxygen
CPT/HCPCS: 36600; 71045; 80053; 82805; 83605; 84484; 85025; 87426; 87635; 87804; 93005; 94640; 96365; 96372; 96375; 99284; J0456; J2270; J3535; J7050; J7512; Q0144

== ENCOUNTER 2020-08-31 20:01 | Emergency (ER) | payer MEDICARE, MEDICAID, SELFPAY ==
--- NOTE | 2020-08-31 20:58 | ECG_ITS ---
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 Measurements Intervals [place] Rate: 74 P: 56 DE: 148 QRS: 44 QRSD: 90 T: 55 QT: 415 QTc: 461 Interpretive Statements SINUS RHYTHM POSSIBLE LEFT ATRIAL ENLARGEMENT [-0.1mV P WAVE IN V1/V2] POSSIBLE RIGHT VENTRICULAR CONDUCTION DELAY [RSR (QR) IN V1/V2] Compared to ECG 08/19/2020 21:33:08 No significant changes Electronically Signed On 09-01-2020 0:02:59 CDT by Kenan Sidhu M.D. [email or web address]
--- NOTE | 2020-08-31 20:58 | XR_ITS ---
WS: [id number] XR chest 1V portable [id number] REASON FOR EXAM: cp FINDINGS: The chest appears relatively unchanged compared to previous examination 05/24/2020. Calcified granulomatous disease is present bilaterally with mild prominence of the interstitium in th e lower lung cortes. Mild tortuosity of the thoracic aorta without aneurysmal dilatation. Normal heart size. Mild changes of degenerative spondylosis in the mid and lower thoracic spine XR/XR chest 1V portable [id number] IMPRESSION: No acute chest abnormality.
[2020-08-31 21:03] VITALS: BP 148/58; PULSE 81; RESP 18; TEMP 36.2; O2SAT 97; BMI 32.1
[2020-08-31] MEDS: albuterol 8 gm MDI 2 PUFF INHALATION (21:32)
[2020-08-31 21:34] VITALS: PULSE 87; RESP 20; O2SAT 94
[2020-08-31 21:48] LABS: Basophils # 0.1 10^3/uL (0.0-0.1); Basophils % 0.5 %; Eosinophils # 0.5 10^3/uL (0.0-0.8); Eosinophils % 2.5 %; Hematocrit 40.9 % (37.0-47.0); Hemoglobin 13.2 g/dL (11.5-15.3); Lymphocytes # 2.6 10^3/uL (0.8-4.8); Lymphocytes % 13.2 %; Mean Corpuscular HGB Conc 32.3 g/dL (30.0-36.0); Mean Corpuscular Hemoglobin 29.5 pg (28.0-34.0); Mean Corpuscular Volume 91.5 fL (81-99); Mean Platelet Volume 9.8 fL (7.4-10.4); Monocytes # 1.1 10^3/uL (0.2-0.9); Monocytes % 5.9 %; Neutrophils # 15.04 10^3/uL (1.8-7.7); Neutrophils % 77.4 %; Nucleated Red Blood Cells % 0 %; Platelet Count 251 10^3/cmm (130-400); Red Blood Count 4.47 10^6/uL (4.1-5.3); Red Cell Distribution Width 16.7 % (12.1-15.1); White Blood Count 19.4 10^3/uL (4.0-10.0)
[2020-08-31 21:50] LABS: Troponin(5th) Baseline 6 ng/L (0-10)
[2020-08-31 21:57] LABS: D Dimer 0.31 ug/mIFEU (0-0.59)
[2020-08-31 21:59] LABS: Alanine Aminotransferase 7 U/L (0-33); Albumin Level 3.6 g/dL (3.5-5.2); Alkaline Phosphatase 119 IU/L (35-105); Anion Gap 13.8 (5-19); Aspartate Amino Transferase 10 U/L (0-32); Blood Urea Nitrogen 14 mg/dL (6-20); Calcium 8.7 mg/dL (8.5-10.5); Carbon Dioxide 21 mmol/L (22-29); Chloride 105 mmol/L (98-107); Globulin 2.6 g/dL (1.3-4.6); Glomerular Filtration Rate 75.3 mL/min (90-130); Glucose 83 mg/dL (65-115); NT Pro B Type Natriuretic Pept 74 pg/mL (0-125); Osmolality Calculated 282 mOsm/kg (285-295); Potassium 3.8 mmol/L (3.5-5.1); Sodium 136 mmol/L (136-145); Total Bilirubin 0.2 mg/dL (0.15-1.2); Total Protein 6.2 g/dL (6.6-8.7)
[2020-08-31] MEDS: dexamethasone 10 mg/mL INJ IVP (22:08)
[2020-08-31] MEDS: HYDROcodone-acetaminophen 5-325 mg Tablet 1 TAB PO (22:08)
[2020-08-31 22:11] VITALS: BP 103/55; PULSE 74; RESP 22; O2SAT 98
[2020-08-31] MEDS: sodium chloride 0.9% 1,000 ML 999 ML IV (22:23)
[2020-08-31] MEDS: azithromycin 250 mg Tablet 500 MG PO (22:24)
[2020-08-31 22:33] LABS: SARS Covid-2 Antigen Negative (Negative)
[2020-08-31 22:56] VITALS: BP 117/56; PULSE 71; RESP 22; O2SAT 94
--- NOTE | 2020-08-31 22:58 | ECG_ITS ---
[facility] Test Date: 2020-08-31 Pat Name: Latesha Wilhelm Department: Room: Gender: Female Wool Hanker: : 1965 Requested By: Frederick Khan Order Number: [id number] Alice MD: Freida Sampson M.D. Measurements Intervals [place] Rate: 74 P: 54 NC: 144 QRS: 60 QRSD: 93 T: 64 QT: 431 QTc: 479 Interpretive Statements SINUS RHYTHM Compared to ECG 08/31/2020 21:03:47 No significant changes Electronically Signed On 09-02-2020 7:55:59 CDT by Freida Sampson M.D. [email or web address]
--- NOTE | 2020-08-31 23:16 | ED_ITS ---
HPI - Chest Pain General: Chief Complaint: Chest Pain Stated Complaint: CHEST DISCOMFORT Time Seen by Provider: 08/31/20 20:58 History of Present Illness: HPI narrative: The patient is a 54-year-old female with past medical history COPD who is a frequent visitor for that comes to the ER complaining of chest pain and shortness of breath. She said she took 4 baby aspirin's at home before calling the EMS. She said she had pain early this morning which worsened when she went shopping and she went home and the pain continued so she called EMS. No prior coronary artery disease. She also complains of shortness of breath and wheezing and her albuterol inhaler at home is not working. MD complaint: chest pain Onset: during rest and during exertion Pain location: substernal and left chest Severity: similar to previous episodes Relieving factors: nothing Exacerbating factors: nothing Associated symptoms: Reports no associated symptoms and dyspnea; Deny abdominal pain or palpitations Review of Systems General: Reports: 10 or more systems reviewed and unremarkable except in HPI and below Const: Denies: fatigue Eyes: Denies: change in vision, blurry vision or eye redness ENMT: Denies: throat pain, swelling of lips/tongue, ear or mastoid pain or nasal congestion Card: Reports: chest pain; Denies: palpitations, irregular heart rhythm, edema, dyspnea on exertion or orthopnea Resp: Reports: dyspnea and wheezing GI: Denies: abdominal pain, diarrhea or GI cramping : Denies: flank pain, difficulty voiding, urinary frequency or urinary urgency Musc: Denies: neck pain, back pain, extremity pain, joint pain, joint redness, limited range of motion or muscle weakness Skin/Breast: Denies: rash, pruritus, erythema, skin pain or skin tenderness Neuro: Denies: headache(s), numbness in extremities, weakness in extremities, sensory changes, difficulty walking, dizziness, confusion or Slurred speech present Psych: Denies: anxiety or depression Endo: Denies: polyuria All/Imm: Denies: urticaria, throat swelling or tongue swelling PFSH ED PFSH: Medical History Bladder stone Borderline personality disorder Chronic anxiety Chronic back pain greater than 3 months duration Chronic cystitis with hematuria Chronic gastritis without bleeding Chronic nausea Cystitis cystica Foreign body in bladder GERD without esophagitis Infiltrate of lung present on imaging of chest Neurogenic bladder Nicotine dependence, cigarettes, with other nicotine-induced disorders Quit in 2019 Oxygen dependent Restrictive lung disease Schizoaffective disorder, bipolar type Tertiary contraction of esophagus Urgency incontinence Surgical History H/O: hysterectomy History of appendectomy History of breast biopsy History of ureter stent Hx of cholecystectomy S/P bronchoscopy with biopsy Family History Mother No problems noted. Father No problems noted. Other Asthma Cancer Diabetes Heart disease Social History Smoking and tobacco status: current every day smoker cigarettes Years cigarettes smoked: 20 [ Other cigarette details: Hx of 1 PPD x 20 Years ] Quit status (tobacco): considering quitting Second hand smoke exposure: Yes Smoking risk assessment/counseling performed?: No Alcohol intake: never Counseling given: No Counseling given: No Lives independently: Yes Household members: spouse Marital status: Number of children: 3 Current occupational status: disabled History of recent travel: No Current gender identity: Female Female Reproductive History: Date of last menstrual period: 06/19/95 Physical Exam Const: COMMON NORMALS: no acute distress, average body habitus, patient oriented x3, no limitations, healthy appearing, alert and well nourished GENERAL APPEARANCE: cooperative, comfortable, well kempt and well developed ORIENTATION/CONSCIOUSNESS: Yes awake, Yes oriented to person, Yes oriented to place and Yes oriented to time HENMT: COMMON NORMALS: normocephalic, external ears normal and Normal external nose present HEAD & SCALP: normal to inspection and normocephalic NOSE: Normal external nose present EXTERNAL EAR: Yes external ears normal MOUTH: Normal oral and palatal mucosa present THROAT: posterior oropharynx normal Eye: COMMON NORMALS: Equal, round and reactive pupils present and EOMs intact bilaterally GENERAL EYE: appearance normal, both eyes and all related structures PUPIL: Yes Equal, round and reactive pupils present Neck/C-Spine: COMMON NORMALS: full ROM, no lymphadenopathy, no meningeal signs and no JVD GENERAL: Yes normal visual inspection Lymph: LYMPHATIC: no lymphadenopathy noted Chest: COMMONS NORMALS: normal inspection of the chest and normal palpation of entire chest wall OTHER: Reproducible anterior chest wall tenderness Resp: COMMON NORMALS: normal respiratory effort, No retractions, No use of accessory muscles, clear to auscultation bilaterally and percussion normal EFFORT & INSPECTION: Yes able to speak in complete sentences AUSCULTATION: clear to auscultation bilaterally and wheezes PERCUSSION: percussion normal Cardio: COMMON NORMALS: no JVD, regular rate, regular rhythm, S1 normal heart sound present, S2 normal heart sound present and Peripheral pulses 2+ throughout RATE: regular rate RHYTHM: regular rhythm HEART SOUNDS: S1 normal heart sound present and S2 normal heart sound present PERIPHERAL PULSES: Peripheral pulses 2+ throughout GI: COMMON NORMALS: Normal to inspection, nondistended, normoactive bowel sounds present, Soft to palpation, non-tender and no masses INSPECTION: Yes normal to inspection PALPATION: Yes Soft to palpation : COMMON NORMALS: Yes no CVA tenderness BLADDER/KIDNEY EXAM: Yes no CVA tenderness Back/Pelvis: COMMON NORMALS: no CVA tenderness, thoracic and lumbar spine normal to inspection, no thoracic nor lumbar tenderness and thoraco-lumbar ROM normal Extremity: COMMON NORMALS: normal to inspection, full ROM, capillary refill normal, no joint enlargement and no pedal edema GENERAL: Yes normal exam except as noted Neuro: COMMON NORMALS: patient oriented x3, CN's II-XII intact bilaterally, moves all extremities, no focal motor deficits, no sensory deficits noted and gait normal SENSORIUM/ORIENTATION: Yes alert, Yes oriented to person, Yes oriented to place and Yes oriented to time MENINGEAL SIGNS: Yes no meningeal signs Psych: COMMON NORMALS: mental status grossly normal, Normal thought process present, cooperative, normal affect and speech normal APPEARANCE: Yes well kempt ATTITUDE: Yes calm SPEECH: Yes normal speech THOUGHT PROCESS: Normal thought process present Skin: COMMON NORMALS: no rashes or lesions noted GENERAL SKIN EXAM: no rashes or lesions noted Course Vital Signs: Vital signs: Vital Signs Temperature 97.1 F L 08/31/20 21:03 Pulse Rate 78 09/01/20 00:05 Respiratory Rate 20 H 09/01/20 00:05 Blood Pressure 135/67 09/01/20 00:05 Pulse Oximetry 96 09/01/20 00:05 MDM - Chest Pain MDM Narrative: Medical decision making narrative: Latesha's chest pain today is likely from coughing as it is reproducible. Her blood pressure was too low to give a nitroglycerin. Troponin x2 were normal and EKG as well normal. Feel comfortable this is not true angina. She was given albuterol, azithromycin, dexamethasone and stable for discharge. Recommended returning to the ER with return of symptoms. Her white count is 19.4 it has been high in the past as well multiple times. She does take steroids frequently and this is possibly the cause. Recommended she follow-up and have this rechecked in a couple days. Lab Data: Labs: Lab Results 08/31/20 08/31/20 08/31/20 Range/Units 21:18 21:18 21:40 WBC 19.4 H (4.0-10.0) 10^3/ uL RBC 4.47 (4.1-5.3) 10^6/u L Hgb 13.2 (11.5-15.3) g/dL Hct 40.9 (37.0-47.0) % MCV 91.5 (81-99) fL MCH 29.5 (28.0-34.0) pg MCHC 32.3 (30.0-36.0) g/dL RDW 16.7 H (12.1-15.1) % Plt Count 251 (130-400) 10^3/c mm MPV 9.8 (7.4-10.4) fL Neut % (Auto) 77.4 % Lymph % (Auto) 13.2 % [place] % (Auto) 5.9 % Eos % (Auto) 2.5 % Baso % (Auto) 0.5 % Neut # (Auto) 15.04 H (1.8-7.7) 10^3/u L Lymph # (Auto) 2.6 (0.8-4.8) 10^3/u L [place] # (Auto) 1.1 H (0.2-0.9) 10^3/u L Eos # (Auto) 0.5 (0.0-0.8) 10^3/u L Baso # (Auto) 0.1 (0.0-0.1) 10^3/u L Nucleated RBC % (a uto) 0 % Nucleated RBCs # 0.0 /100WBC D-Dimer (0-0.59) ug/mIFE U Sodium 136 (136-145) mmol/L Potassium 3.8 (3.5-5.1) mmol/L Chloride 105 (98-107) mmol/L Carbon Dioxide 21 L (22-29) mmol/L Anion Gap 13.8 (5-19) BUN 14 (6-20) mg/dL Creatinine 0.8 (0.5-0.9) mg/dL GFR Calculation 75.3 L (90-130) mL/min Glucose 83 (65-115) mg/dL Calculated Osmolal ity 282 L (285-295) mOsm/k g Calcium 8.7 (8.5-10.5) mg/dL Total Bilirubin 0.2 (0.15-1.2) mg/dL AST 10 (0-32) U/L ALT 7 (0-33) U/L Alkaline Phosphata se 119 H (35-105) IU/L Troponin T Baselin e 6 (0-10) ng/L Troponin T 120 Min [place] (0-10) ng/L Delta Troponin T (0-10) ABS# NT-Pro-B Natriuret Pep 74 (0-125) pg/mL Total Protein 6.2 L (6.6-8.7) g/dL Albumin 3.6 (3.5-5.2) g/dL Globulin 2.6 (1.3-4.6) g/dL SARS-CoV-2 Ag (Rap id) (Negative) 08/31/20 08/31/20 08/31/20 Range/Units 21:40 21:42 22:48 WBC (4.0-10.0) 10^3/ uL RBC (4.1-5.3) 10^6/u L Hgb (11.5-15.3) g/dL Hct (37.0-47.0) % MCV (81-99) fL MCH (28.0-34.0) pg MCHC (30.0-36.0) g/dL RDW (12.1-15.1) % Plt Count (130-400) 10^3/c mm MPV (7.4-10.4) fL Neut % (Auto) % Lymph % (Auto) % [place] % (Auto) % Eos % (Auto) % Baso % (Auto) % Neut # (Auto) (1.8-7.7) 10^3/u L Lymph # (Auto) (0.8-4.8) 10^3/u L [place] # (Auto) (0.2-0.9) 10^3/u L Eos # (Auto) (0.0-0.8) 10^3/u L Baso # (Auto) (0.0-0.1) 10^3/u L Nucleated RBC % (a uto) % Nucleated RBCs # /100WBC D-Dimer 0.31 (0-0.59) ug/mIFE U Sodium (136-145) mmol/L Potassium (3.5-5.1) mmol/L Chloride (98-107) mmol/L Carbon Dioxide (22-29) mmol/L Anion Gap (5-19) BUN (6-20) mg/dL Creatinine (0.5-0.9) mg/dL GFR Calculation (90-130) mL/min Glucose (65-115) mg/dL Calculated Osmolal ity (285-295) mOsm/k g Calcium (8.5-10.5) mg/dL Total Bilirubin (0.15-1.2) mg/dL AST (0-32) U/L ALT (0-33) U/L Alkaline Phosphata se (35-105) IU/L Troponin T Baselin e (0-10) ng/L Troponin T 120 Min [place] 6.00 (0-10) ng/L Delta Troponin T 0 (0-10) ABS# NT-Pro-B Natriuret Pep (0-125) pg/mL Total Protein (6.6-8.7) g/dL Albumin (3.5-5.2) g/dL Globulin (1.3-4.6) g/dL SARS-CoV-2 Ag (Rap id) Negative (Negative) Discharge Plan Discharge Patient Disposition: Home Clinical Impression: COPD (chronic obstructive pulmonary disease) Condition: Stable Prescriptions: New azithromycin 250 mg tablet 250 mg PO DAILY 4 Days Qty: 4 RF: 0 Medrol (Germain) 4 mg tablets,dose pack See Rx Instructions .ROUTE .COMPLEX Qty: 21 RF: 0 albuterol sulfate 90 mcg/actuation HFA aerosol inhaler 2 inh inhalation Q6H PRN (Reason: shortness of breath or wheezing) 30 Days RF: 0 No Action lorazepam 0.5 mg tablet 0.5 mg PO DAILY PRN (Reason: Anxiety) 30 Days Qty: 30 RF: 1 polyethylene glycol 3350 [Miralax] 17 gram/dose powder 17 gm PO DAILY@0800 RF: 0 methenamine hippurate 1 gram tablet 1 g PO BID Qty: 180 RF: 3 buspirone 15 mg tablet 15 mg PO TID Qty: 90 RF: 1 hydroxyzine pamoate 50 mg capsule See Rx Instructions .ROUTE .COMPLEX 30 Days Qty: 150 RF: 1 lamotrigine 200 mg tablet 200 mg PO DAILY@0800 Qty: 30 RF: 1 venlafaxine 75 mg capsule,extended release 24hr 75 mg PO TID@08,13,21 Qty: 90 RF: 1 Ingrezza 80 mg capsule 80 mg PO DAILY Qty: 30 RF: 2 trazodone 300 mg tablet 300 mg PO BEDTIME@2100 Qty: 30 RF: 1 Breo Ellipta 100-25 mcg/dose blister with device 1 inh inhalation DAILY 30 Days Qty: 28 RF: 4 ipratropium-albuterol 0.5 mg-3 mg(2.5 mg base)/3 mL solution for nebulization See Rx Instructions .ROUTE .COMPLEX Qty: 1620 RF: 3 albuterol sulfate [Ventolin HFA] 90 mcg/actuation HFA aerosol inhaler See Rx Instructions .ROUTE .COMPLEX Qty: 18 RF: 3 sucralfate 1 gram tablet 1 g PO QID@08,13,17,21 30 Days Qty: 120 RF: 0 pantoprazole 40 mg tablet,delayed release (DR/EC) See Rx Instructions .ROUTE .COMPLEX Qty: 90 RF: 0 nystatin 100,000 unit/gram powder 1 applic topical BID Qty: 60 RF: 1 trospium 20 mg tablet See Rx Instructions .ROUTE .COMPLEX Qty: 180 RF: 3 budesonide [Pulmicort] 0.5 mg/2 mL suspension for nebulization 0.5 mg INHALATION BID@0800,2100 RF: 0 acetaminophen [Tylenol Arthritis Pain] 650 mg Tablet Extended Release 1,300 mg PO Q6H PRN (Reason: Pain) RF: 0 ondansetron HCl [Zofran] 4 mg tablet 4 mg PO QID PRN (Reason: nausea and vomiting) Qty: 14 RF: 0 prochlorperazine maleate 5 mg tablet 5 mg PO TID PRN (Reason: Nausea) RF: 0 Discharge Orders: Discharge ED (Routine); Ordered 08/31/20 Ordered By: Frederick Khan Referrals: Dara Tavera FNP [Primary Care Provider] - Discharge Diet: Advance as tolerated Discharge Activity: Resume usual activity Patient Instructions: Chronic Obstructive Pulmonary Disease (ED), Opioid Safety Activity Restrictions/Additional Instructions: You are having a COPD exacerbation. Please use your albuterol nebulizer to help with your symptoms and take the steroids and antibiotics as well. Return to the ER with worsening symptoms otherwise follow-up with your primary care physician in 3 to 5 days and get your white blood cell count rechecked as it was elevated here. 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
[2020-08-31 23:30] LABS: Troponin 5 2HR Delta 0 ABS# (0-10)
[2020-08-31 23:32] VITALS: PULSE 74; RESP 18; O2SAT 99
[2020-08-31] MEDS: ipratropium-albuterol 3 mL Neb INHALATION (23:32)
[2020-08-31 23:37] VITALS: PULSE 76
[2020-09-01 00:05] VITALS: BP 135/67; PULSE 78; RESP 20; O2SAT 96
== END 2020-09-01 00:05 | disposition home or self-care (01) ==
PROVIDERS: Emergency Provider Family Medicine; PCP Registered Nurse
DX: J44.9 Chronic obstructive pulmonary disease, unspecified (principal); Z99.81 Dependence on supplemental oxygen; F17.210 Nicotine dependence, cigarettes, uncomplicated
CPT/HCPCS: 36415; 71045; 80053; 83880; 84484; 85025; 85378; 87426; 93005; 94640; 96361; 96374; 99284; J1100; J3535; J7030; Q0144

== ENCOUNTER 2020-09-09 16:35 | Emergency (ER) | payer MEDICARE, MEDICAID, SELFPAY ==
[2020-09-09 16:36] VITALS: BP 131/80; PULSE 96; RESP 18; TEMP 37.1; O2SAT 98; BMI 32.4
--- NOTE | 2020-09-09 16:40 | XR_ITS ---
WS: [id number] Exam: XR chest 1V portable [id number] Date/Time of Exam: 09/09/2020 4:49 PM Reason For Exam: cough Comparison 08/31/2020. Findings: The lungs are clear and fully expanded. Costophrenic angles are sharp. No infiltrates. Bronchovascula r relief appears normal. Cardiac silhouette is unremarkable. Bony elements are intact. XR/XR chest 1V portable [id number] IMPRESSION: Unremarkable chest radiograph.
--- NOTE | 2020-09-09 16:51 | W.ED.GENADLT ---
HPI - General Adult General: Chief complaint: General Medical Stated complaint: COUGH Time Seen by Provider: 09/09/20 16:37 Source: patient and EMS Mode of arrival: EMS Limitations: no limitations History of Present Illness: HPI narrative: 54-year-old female who is very well-known to the ER states she has had a cough over the last 3 days. She states that cough has been nonproductive she has had low-grade fevers. She states she was seen yesterday at [facility] and started on a Bactrim antibiotic. She states she is continued to have the cough. She denies any worsening improving factors. Denies any abdominal pain or chest pain. Associated symptoms: Deny chest pain, headache(s), nausea, rash or vomiting Review of Systems Const: Denies: fever(s), chills, body aches or change in appetite Eyes: Denies: blurry vision or eye discomfort ENMT: Denies: throat pain or dental pain Card: Denies: chest pain Resp: Reports: dyspnea, non-productive cough and wheezing GI: Denies: abdominal pain, nausea, vomiting or diarrhea : Denies: dysuria Musc: Denies: neck pain or back pain Skin/Breast: Denies: rash Neuro: Denies: headache(s) Psych: Denies: depression [place]/Lymph: Denies: easy bruising All/Imm: Denies: urticaria PFSH ED PFSH: Medical History (Updated 09/09/20 @ 18:12 by Damien Urbina MD) Bladder stone Borderline personality disorder Chronic anxiety Chronic back pain greater than 3 months duration Chronic cystitis with hematuria Chronic gastritis without bleeding Chronic nausea Cystitis cystica Foreign body in bladder GERD without esophagitis Infiltrate of lung present on imaging of chest Neurogenic bladder Nicotine dependence, cigarettes, with other nicotine-induced disorders Quit in 2019 Oxygen dependent Restrictive lung disease Schizoaffective disorder, bipolar type Tertiary contraction of esophagus Urgency incontinence Surgical History (Updated 09/07/20 @ 08:53 by AMANDEEP Barclay) H/O: hysterectomy History of appendectomy History of breast biopsy History of foot surgery sx in 2009. Screws placed by Dr. Don. History of ureter stent Hx of cholecystectomy S/P bronchoscopy with biopsy Family History Mother No problems noted. Father No problems noted. Other Asthma Cancer Diabetes Heart disease Social History Smoking and tobacco status: current every day smoker cigarettes Years cigarettes smoked: 20 [ Other cigarette details: Hx of 1 PPD x 20 Years ] Quit status (tobacco): considering quitting Second hand smoke exposure: Yes Smoking risk assessment/counseling performed?: No Alcohol intake: never Counseling given: No Counseling given: No Lives independently: Yes Household members: spouse Marital status: Number of children: 3 Current occupational status: disabled History of recent travel: No Current gender identity: Female Female Reproductive History: Date of last menstrual period: 06/19/95 Physical Exam Const: COMMON NORMALS: no acute distress, patient oriented x3 and healthy appearing HENMT: COMMON NORMALS: normocephalic and atraumatic HEAD & SCALP: normocephalic and atraumatic Eye: COMMON NORMALS: Equal, round and reactive pupils present and EOMs intact bilaterally PUPIL: Yes Equal, round and reactive pupils present Neck/C-Spine: COMMON NORMALS: full ROM and supple Chest: COMMONS NORMALS: normal inspection of the chest and normal palpation of entire chest wall Resp: COMMON NORMALS: normal respiratory effort, No retractions, No use of accessory muscles and clear to auscultation bilaterally AUSCULTATION: clear to auscultation bilaterally Cardio: COMMON NORMALS: regular rate, regular rhythm and No murmurs present (Cardio) RATE: regular rate RHYTHM: regular rhythm GI: COMMON NORMALS: Normal to inspection, nondistended, normoactive bowel sounds present, Soft to palpation, non-tender and no masses PALPATION: Yes Soft to palpation Extremity: COMMON NORMALS: normal to inspection and full ROM Neuro: COMMON NORMALS: patient oriented x3, moves all extremities and no focal motor deficits Psych: COMMON NORMALS: mental status grossly normal, Normal thought process present and cooperative THOUGHT PROCESS: Normal thought process present Skin: COMMON NORMALS: no rashes or lesions noted and no wounds GENERAL SKIN EXAM: no rashes or lesions noted Course Vital Signs: Vital signs: Vital Signs Temperature 98.8 F 09/09/20 16:36 Pulse Rate 87 09/09/20 17:35 Respiratory Rate 20 H 09/09/20 17:35 Blood Pressure 117/49 09/09/20 17:35 Pulse Oximetry 94 09/09/20 17:35 MDM - General Adult MDM Narrative: Medical decision making narrative: Yusef with a likely bronchitis. She is to continue antibiotic we will give her IM steroid here. She is well-appearing and her Covid is negative and x-ray is negative as well. She is stable for discharge and is to follow-up with PCP in 3 to 5 days return if worsening. Lab Data: Labs: Lab Results 09/09/20 09/09/20 09/09/20 Range/Units 17:23 17:23 17:42 WBC 12.3 H (4.0-10.0) 10^3/ uL RBC 4.22 (4.1-5.3) 10^6/u L Hgb 12.6 (11.5-15.3) g/dL Hct 39.3 (37.0-47.0) % MCV 93.1 (81-99) fL MCH 29.9 (28.0-34.0) pg MCHC 32.1 (30.0-36.0) g/dL RDW 16.7 H (12.1-15.1) % Plt Count 246 (130-400) 10^3/c mm MPV 11.3 H (7.4-10.4) fL Neut % (Auto) 72.7 % Lymph % (Auto) 15.7 % [place] % (Auto) 7.5 % Eos % (Auto) 3.0 % Baso % (Auto) 0.6 % Neut # (Auto) 8.96 H (1.8-7.7) 10^3/u L Lymph # (Auto) 1.9 (0.8-4.8) 10^3/u L [place] # (Auto) 0.9 (0.2-0.9) 10^3/u L Eos # (Auto) 0.4 (0.0-0.8) 10^3/u L Baso # (Auto) 0.1 (0.0-0.1) 10^3/u L Nucleated RBC % (a uto) 0 % Nucleated RBCs # 0.0 /100WBC SARS-CoV-2 RNA (RT -PCR) Cancelled SARS-CoV-2 Ag (Rap id) Negative (Negative) Imaging Data^: CXR: Attestation: I personally reviewed and interpreted this imaging study as follows: My impression: no acute abnormality EKG Data^: EKG 1: Attestation: I personally reviewed and interpreted this EKG as follows: EKG interpretation date: 09/09/20 EKG interpretation time: 17:15 Interpretation: nsr hr [address] or t wave abnormalities qrs 109 qtc 462 Discharge Plan Discharge Patient Disposition: Home Clinical Impression: Bronchitis Condition: Stable Prescriptions: No Action hydroxyzine pamoate 50 mg capsule See Rx Instructions .ROUTE .COMPLEX 30 Days Qty: 150 RF: 1 venlafaxine 75 mg capsule,extended release 24hr 75 mg PO TID@,, Qty: 90 RF: 1 trazodone 300 mg tablet 300 mg PO BEDTIME@2099 Qty: 30 RF: 1 ipratropium-albuterol 0.5 mg-3 mg(2.5 mg base)/3 mL solution for nebulization See Rx Instructions .ROUTE .COMPLEX Qty: 1620 RF: 3 lorazepam 0.5 mg tablet 0.5 mg PO DAILY PRN (Reason: Anxiety) 30 Days Qty: 30 RF: 1 albuterol sulfate [Ventolin HFA] 90 mcg/actuation HFA aerosol inhaler See Rx Instructions .ROUTE .COMPLEX Qty: 18 RF: 3 budesonide [Pulmicort] 0.5 mg/2 mL suspension for nebulization 0.5 mg INHALATION BID@0800,2100 RF: 0 albuterol sulfate 90 mcg/actuation HFA aerosol inhaler 2 inh inhalation Q6H PRN (Reason: shortness of breath or wheezing) 30 Days RF: 0 Benefiber Healthy Shape 5 gram/7.4 gram Powder 5 g PO BID@0600,1800 RF: 0 lamotrigine 200 mg tablet 200 mg PO DAILY@0600 RF: 0 baclofen 10 mg tablet 10 mg PO BID@0600,1800 RF: 0 pantoprazole 40 mg tablet,delayed release (DR/EC) 40 mg PO DAILY@0800 RF: 0 nystatin 100,000 unit/gram powder 1 applic topical BID@0800,1800 RF: 0 buspirone 15 mg tablet 15 mg PO TID@0600,1200,1800 RF: 0 Breo Ellipta 100-25 mcg/dose blister with device 1 inh inhalation DAILY@0600 RF: 0 Ingrezza 80 mg capsule 80 mg PO DAILY@0600 RF: 0 acetaminophen [Tylenol Arthritis Pain] 650 mg Tablet Extended Release 1,300 mg PO Q6H PRN (Reason: Pain) RF: 0 ondansetron HCl [Zofran] 4 mg tablet 4 mg PO QID PRN (Reason: nausea and vomiting) Qty: 14 RF: 0 prochlorperazine maleate 5 mg tablet 5 mg PO TID PRN (Reason: Nausea) RF: 0 Discharge Orders: Discharge ED (Routine); Ordered 09/09/20 Ordered By: Damien Urbina Referrals: Dara Tavera, WET WASH ASSEMBLER [Primary Care Provider] - 1-3 days Discharge Diet: Advance as tolerated Discharge Activity: Resume usual activity Patient Instructions: Acute Bronchitis (ED) Coding Level of Care Code ED Electrical Sign Wirer Helper for Shellie Fwd Exam Comprehensive
--- NOTE | 2020-09-09 17:09 | ECG_ITS ---
[facility] Test Date: 2020-09-09 Pat Name: Latesha Wilhelm Department: Room: Gender: Female Adobe Flex Developer: : 1965 Requested By: Damien Urbina Order Number: [id number] Alice MD: Severo Aly M.D. Measurements Intervals [place] Rate: 85 P: 44 CO: 128 QRS: 47 QRSD: 109 T: 56 QT: 420 QTc: 500 Interpretive Statements SINUS RHYTHM Compared to ECG 08/31/2020 23:05:24 No significant changes Electronically Signed On 09-09-2020 18:37:28 CDT by Severo Aly M.D. [id number] f
[2020-09-09 17:35] VITALS: BP 117/49; PULSE 87; RESP 20; O2SAT 94
[2020-09-09 18:03] LABS: Basophils # 0.1 10^3/uL (0.0-0.1); Basophils % 0.6 %; Eosinophils # 0.4 10^3/uL (0.0-0.8); Hematocrit 39.3 % (37.0-47.0); Hemoglobin 12.6 g/dL (11.5-15.3); Lymphocytes # 1.9 10^3/uL (0.8-4.8); Lymphocytes % 15.7 %; Mean Corpuscular HGB Conc 32.1 g/dL (30.0-36.0); Mean Corpuscular Hemoglobin 29.9 pg (28.0-34.0); Mean Corpuscular Volume 93.1 fL (81-99); Mean Platelet Volume 11.3 fL (7.4-10.4); Monocytes # 0.9 10^3/uL (0.2-0.9); Monocytes % 7.5 %; Neutrophils # 8.96 10^3/uL (1.8-7.7); Neutrophils % 72.7 %; Nucleated Red Blood Cells % 0 %; Platelet Count 246 10^3/cmm (130-400); Red Blood Count 4.22 10^6/uL (4.1-5.3); Red Cell Distribution Width 16.7 % (12.1-15.1); White Blood Count 12.3 10^3/uL (4.0-10.0)
[2020-09-09 18:13] LABS: SARS Covid-2 Antigen Negative (Negative)
[2020-09-09] MEDS: dexamethasone 10 mg/mL INJ IM (18:15)
== END 2020-09-09 18:20 | disposition home or self-care (01) ==
PROVIDERS: Emergency Provider Emergency Medicine; PCP Registered Nurse
DX: J40 Bronchitis, not specified as acute or chronic (principal); Z99.81 Dependence on supplemental oxygen; F17.210 Nicotine dependence, cigarettes, uncomplicated
CPT/HCPCS: 36415; 71045; 85025; 87426; 93005; 96372; 99284; J1100

== ENCOUNTER → 2020-09-15 07:41 | Outpatient (BNVA) | payer MEDICARE, MEDICAID, SELFPAY | PROVIDERS: PCP Registered Nurse; Visit Provider Nurse Practitioner | DX: F60.3 Borderline personality disorder (principal); F25.0 Schizoaffective disorder, bipolar type | CPT/HCPCS: 99214 ==

== ENCOUNTER 2020-09-20 21:31 | Observation (INO) | payer MEDICARE, MEDICAID, SELFPAY ==
[2020-09-20 21:32] VITALS: BP 129/65; PULSE 87; RESP 18; TEMP 36.3; O2SAT 98; BMI 32.4
[2020-09-20 21:43] VITALS: PULSE 84; RESP 16; O2SAT 96
--- NOTE | 2020-09-20 21:43 | ECG_ITS ---
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 Measurements Intervals [place] Rate: 77 P: 55 [place]: 154 QRS: 34 QRSD: 95 T: 48 QT: 402 QTc: 456 Interpretive Statements SINUS RHYTHM Compared to ECG 09/09/2020 17:15:22 No significant changes Electronically Signed On 09-20-2020 22:50:32 CDT by Kenan Sidhu M.D. [id number]
--- NOTE | 2020-09-20 21:49 | CTR_ITS ---
PROCEDURE INFORMATION: Exam: CT Abdomen And Pelvis With Contrast Exam date and time: 09/20/2020 10:14 PM Age: 54 years old Clinical indication: Abdominal pain; Prior surgery; Surgery date: 6+ months; Surgery type: Gb. , Appy, hyst, bladder; Patient HX: C/O epigastric pain w n/v; Additional info: Vomiting solids. Only liquids passing. Abdominal pain TECHNIQUE: Imaging protocol: Computed tomography of the abdomen and pelvis with contrast. Radiation optimization: All CT scans at this facility use at least one of these dose optimization techniques: automated exposure control; mA and/or kV adjustment per patient size (includes targeted exams where dose is matched to clinical indication); or iterative reconstruction. Contrast material: OMNI 300; Contrast volume: 95 ml; Contrast route: INTRAVENOUS (IV); COMPARISON: CT abdomen pelvis w con* [id number] 03/19/2020 4:16 PM RADIATION DOSE METRICS: Total DLP (mGy-cm): 1822.12 FINDINGS: Liver: There is no focal abnormality within the liver. Gallbladder and bile ducts: There has been a cholecystectomy. Pancreas: Normal. No ductal dilation. Spleen: The spleen is normal. Adrenal glands: The adrenal glands are normal. Kidneys and ureters: There is a right renal collecting system calcification. The left kidney is normal. There is no evidence of hydronephrosis. There is no stone along the course of either ureter. Stomach and bowel: There is no evidence of colitis/diverticulitis. There is no evidence of intestinal obstruction. Appendix: Not Identified Intraperitoneal space: Unremarkable. No free air. No significant fluid collection. Vasculature: The aorta demonstrates mild atherosclerotic calcification. There is no evidence of an abdominal aortic aneurysm. Lymph nodes: There is no evidence of lymphadenopathy. Urinary bladder: Unremarkable as visualized. Reproductive: There has been a hysterectomy. Bones/joints: There are degenerative changes in the lower lumbar spine stable compared with the previous examination. Fusion of the bodies of T11 and T12 is again identified. Soft tissues: There are surgical clips in the left inguinal region, presumably from prior hernia repair. CT/CT abdomen pelvis w con* [id number] IMPRESSION: No acute finding in the abdomen or pelvis. Radiation Dose CTDIVOL = (mGy): DLP = 1822.12 (mGy-cm)
--- NOTE | 2020-09-20 21:54 | ED_ITS ---
Documented by User: Frederick Khan MD 09/24/20 10:45 HPI - Nausea/Vomiting/Diarrhea General: Chief complaint: Nausea/Vomiting/Diarrhea Stated complaint: N/V Time Seen by Provider: 09/20/20 21:35 History of Present Illness: HPI Narrative: Patient is a 54-year-old female who comes to the ER complaining of abdominal pain and she is unable to pass solids even her pills. She says she feels dehydrated. She says she can swallow some l iquids but sometimes even they come back up. She has frequent issues and has had to have her esophagus dilated multiple times over the last year. MD elicited complaint: nausea, vomiting and abdominal pain Description of vomiting: food contents Associated nausea: Yes Exacerbating factors: eating Relieving factors: none Associated symtoms: Reports no associated symptoms and nausea; Denies anxiety, change in vision, chest pain, dizziness, fatigue, headache(s) or palpitations Review of Systems General: Reports: 10 or more systems reviewed and unremarkable except in HPI and below Const: Denies: fatigue Eyes: Denies: change in vision, blurry vision or eye redness ENMT: Denies: throat pain, swelling of lips/tongue, ear or mastoid pain or nasal congestion Card: Denies: chest pain, palpitations, irregular heart rhythm, edema, dyspnea on exertion or orthopnea Resp: Denies: dyspnea, productive cough or non-productive cough GI: Reports: abdominal pain, nausea and vomiting; Denies: diarrhea or GI cramping : Denies: flank pain, difficulty voiding, urinary frequency or urinary urgency Musc: Denies: neck pain, back pain, extremity pain, joint pain, joint redness, limited range of motion or muscle weakness Skin/Breast: Denies: rash, pruritus, erythema, skin pain or skin tenderness Neuro: Denies: headache(s), numbness in extremities, weakness in extremities, sensory changes, difficulty walking, dizziness, confusion or Slurred speech present Psych: Denies: anxiety or depression Endo: Denies: polyuria All/Imm: Denies: urticaria, throat swelling or tongue swelling PFSH ED PFSH: Medical History (Updated 09/22/20 @ 00:00 by ) Bladder stone Borderline personality disorder Chronic anxiety Chronic back pain greater than 3 months duration Chronic gastritis without bleeding Cystitis cystica Foreign body in bladder GERD without esophagitis Neurogenic bladder Restrictive lung disease Schizoaffective disorder, bipolar type Urgency incontinence Surgical History (Updated 09/21/20 @ 16:03 by Baltazar Montalvo MD) H/O colonoscopy with polypectomy H/O esophagogastroduodenoscopy (09/21/20) H/O: hysterectomy History of appendectomy History of breast biopsy History of foot surgery sx in 2009. Screws placed by Dr. Don. History of ureter stent Hx of cholecystectomy S/P bronchoscopy with biopsy Family History Mother No problems noted. Father No problems noted. Other Asthma Cancer Diabetes Heart disease Social History Smoking and tobacco status: current every day smoker cigarettes Years cigarettes smoked: 20 [ Other cigarette details: Hx of 1 PPD x 20 Years ] Quit status (tobacco): considering quitting Second hand smoke exposure: Yes Smoking risk assessment/counseling performed?: No Alcohol intake: never Counseling given: No Counseling given: No Lives independently: Yes Household members: spouse Marital status: Number of children: 3 Current occupational status: disabled History of recent travel: No Current gender identity: Female Female Reproductive History: Date of last menstrual period: 06/19/95 Physical Exam Const: COMMON NORMALS: no acute distress, average body habitus, patient oriented x3, no limitations, healthy appearing, alert and well nourished GENERAL APPEARANCE: cooperative, comfortable, well kempt and well developed ORIENTATION/CONSCIOUSNESS: Yes awake, Yes oriented to person, Yes oriented to place and Yes oriented to time HENMT: COMMON NORMALS: normocephalic, external ears normal and Normal external nose present HEAD & SCALP: normal to inspection and normocephalic NOSE: Normal external nose present EXTERNAL EAR: Yes external ears normal MOUTH: Normal oral and palatal mucosa present THROAT: posterior oropharynx normal Eye: COMMON NORMALS: Equal, round and reactive pupils present and EOMs intact bilaterally GENERAL EYE: appearance normal, both eyes and all related structures PUPIL: Yes Equal, round and reactive pupils present Neck/C-Spine: COMMON NORMALS: full ROM, no lymphadenopathy, no meningeal signs and no JVD GENERAL: Yes normal visual inspection Lymph: LYMPHATIC: no lymphadenopathy noted Chest: COMMONS NORMALS: normal inspection of the chest and normal palpation of entire chest wall Resp: COMMON NORMALS: normal respiratory effort, No retractions, No use of accessory muscles, clear to auscultation bilaterally and percussion normal EFFORT & INSPECTION: Yes able to speak in complete sentences AUSCULTATION: clear to auscultation bilaterally PERCUSSION: percussion normal Cardio: COMMON NORMALS: no JVD, regular rate, regular rhythm, S1 normal heart sound present, S2 normal heart sound present and Peripheral pulses 2+ throughout RATE: regular rate RHYTHM: regular rhythm HEART SOUNDS: S1 normal heart sound present and S2 normal heart sound present PERIPHERAL PULSES: Peripheral pulses 2+ throughout GI: COMMON NORMALS: Normal to inspection, nondistended, normoactive bowel sounds present, Soft to palpation and no masses INSPECTION: Yes normal to inspection PALPATION: Yes Soft to palpation GI image (female): 1. Gastric tenderness : COMMON NORMALS: Yes no CVA tenderness BLADDER/KIDNEY EXAM: Yes no CVA tenderness Back/Pelvis: COMMON NORMALS: no CVA tenderness, thoracic and lumbar spine normal to inspection, no thoracic nor lumbar tenderness and thoraco-lumbar ROM normal Extremity: COMMON NORMALS: normal to inspection, full ROM, capillary refill no rmal, no joint enlargement and no pedal edema GENERAL: Yes normal exam except as noted Neuro: COMMON NORMALS: patient oriented x3, CN's II-XII intact bilaterally, moves all extremities, no focal motor deficits, no sensory deficits noted and gait normal SENSORIUM/ORIENTATION: Yes alert, Yes oriented to person, Yes oriented to place and Yes oriented to time MENINGEAL SIGNS: Yes no meningeal signs Psych: COMMON NORMALS: mental status grossly normal, Normal thought process present, cooperative, normal affect and speech normal APPEARANCE: Yes well kempt ATTITUDE: Yes calm SPEECH: Yes normal speech THOUGHT PROCESS: Normal thought process present Skin: COMMON NORMALS: no rashes or lesions noted GENERAL SKIN EXAM: no rashes or lesions noted Course Vital Signs: Vital signs: Vital Signs Temperature 98.4 F 09/21/20 16:58 Pulse Rate 87 09/21/20 16:58 Respiratory Rate 18 09/21/20 16:58 Blood Pressure 97/63 09/21/20 16:58 Pulse Oximetry 100 09/21/20 16:58 MDM - Nausea/Vomiting/Diarrhea Lab Data: Labs: Lab Results 09/20/20 09/20/20 09/20/20 Range/Units 21:54 21:54 21:54 WBC 18.9 H (4.0-10.0) 10^3/ uL RBC 4.30 (4.1-5.3) 10^6/u L Hgb 13.0 (11.5-15.3) g/dL Hct 41.2 (37.0-47.0) % MCV 95.8 (81-99) fL MCH 30.2 (28.0-34.0) pg MCHC 31.6 (30.0-36.0) g/dL RDW 16.9 H (12.1-15.1) % Plt Count 275 (130-400) 10^3/c mm MPV 9.6 (7.4-10.4) fL Neut % (Auto) 78.0 % Lymph % (Auto) 14.1 % Nuckolls % (Auto) 6.2 % Eos % (Auto) 0.0 % Baso % (Auto) 0.7 % Neut # (Auto) 14.72 H (1.8-7.7) 10^3/u L Lymph # (Auto) 2.7 (0.8-4.8) 10^3/u L Nuckolls # (Auto) 1.2 H (0.2-0.9) 10^3/u L Eos # (Auto) 0.0 (0.0-0.8) 10^3/u L Baso # (Auto) 0.1 (0.0-0.1) 10^3/u L Nucleated RBC % (a uto) 0 % Nucleated RBCs # 0.0 /100WBC Sodium 141 (136-145) mmol/L Potassium 4.2 (3.5-5.1) mmol/L Chloride 110 H (98-107) mmol/L Carbon Dioxide 24 (22-29) mmol/L Anion Gap 11.2 (5-19) BUN 20 (6-20) mg/dL Creatinine 0.9 (0.5-0.9) mg/dL GFR Calculation 65.8 L (90-130) mL/min Glucose 97 (65-115) mg/dL Calculated Osmolal ity 295 (285-295) mOsm/k g Lactate (0.5-2.2) mmol/L Calcium 9.0 (8.5-10.5) mg/dL Total Bilirubin 0.2 (0.15-1.2) mg/dL AST 16 (0-32) U/L ALT 25 (0-33) U/L Alkaline Phosphata se 137 H (35-105) IU/L Troponin T Gen 5 n g/L 6 (0-10) ng/L Total Protein 5.6 L (6.6-8.7) g/dL Albumin 3.7 (3.5-5.2) g/dL Globulin 1.9 (1.3-4.6) g/dL Lipase 22 (13-60) U/L Urine Color (Yellow) Urine Appearance (CLEAR) Urine pH (5-7) Ur Specific Gravit y (1.005-1.030) Urine Protein (Negative) Urine Glucose (UA) (Normal) Urine Ketones (Negative) Urine Blood (Negative) Urine Nitrate (Negative) Urine Bilirubin (Negative) Urine Urobilinogen (Negative) mg/dL Ur Leukocyte Stephanie ase (Negative) 09/20/20 09/20/20 Range/Units 22:24 22:56 WBC (4.0-10.0) 10^3/ uL RBC (4.1-5.3) 10^6/u L Hgb (11.5-15.3) g/dL Hct (37.0-47.0) % MCV (81-99) fL MCH (28.0-34.0) pg MCHC (30.0-36.0) g/dL RDW (12.1-15.1) % Plt Count (130-400) 10^3/c mm MPV (7.4-10.4) fL Neut % (Auto) % Lymph % (Auto) % Nuckolls % (Auto) % Eos % (Auto) % Baso % (Auto) % Neut # (Auto) (1.8-7.7) 10^3/u L Lymph # (Auto) (0.8-4.8) 10^3/u L Nuckolls # (Auto) (0.2-0.9) 10^3/u L Eos # (Auto) (0.0-0.8) 10^3/u L Baso # (Auto) (0.0-0.1) 10^3/u L Nucleated RBC % (a uto) % Nucleated RBCs # /100WBC Sodium (136-145) mmol/L Potassium (3.5-5.1) mmol/L Chloride (98-107) mmol/L Carbon Dioxide (22-29) mmol/L Anion Gap (5-19) BUN (6-20) mg/dL Creatinine (0.5-0.9) mg/dL GFR Calculation (90-130) mL/min Glucose (65-115) mg/dL Calculated Osmolal ity (285-295) mOsm/k g Lactate 0.6 (0.5-2.2) mmol/L Calcium (8.5-10.5) mg/dL Total Bilirubin (0.15-1.2) mg/dL AST (0-32) U/L ALT (0-33) U/L Alkaline Phosphata se (35-105) IU/L Troponin T Gen 5 n g/L (0-10) ng/L Total Protein (6.6-8.7) g/dL Albumin (3.5-5.2) g/dL Globulin (1.3-4.6) g/dL Lipase (13-60) U/L Urine Color Yellow (Yellow) Urine Appearance Clear (CLEAR) Urine pH 6.5 (5-7) Ur Specific Gravit y 1.010 (1.005-1.030) Urine Protein Neg (Negative) Urine Glucose (UA) Norm (Normal) Urine Ketones Negative (Negative) Urine Blood Neg (Negative) Urine Nitrate Negative (Negative) Urine Bilirubin Neg (Negative) Urine Urobilinogen Norm (Negative) mg/dL Ur Leukocyte Stephanie ase Negative (Negative) Discharge Plan Discharge Patient Disposition: Placed in Observation Admit Provider: Baltazar Montalvo Clinical Impression: Chronic reflux esophagitis, Chronic gastritis without bleeding, Esophageal stricture Discharge Diet: Advance as tolerated Discharge Activity: Resume usual activity Coding Level of Care Code ED Counselling Psychologist for Chg Fwd Exam Comprehensive Documented by User: Chivo Deleon DO 09/21/20 05:06 HPI - Nausea/Vomiting/Diarrhea General: Chief complaint: Nausea/Vomiting/Diarrhea Stated complaint: N/V Time Seen by Provider: 09/20/20 21:35 PFSH ED PFSH: Medical History (Updated 09/22/20 @ 00:00 by ) Bladder stone Borderline personality disorder Chronic anxiety Chronic back pain greater than 3 months duration Chronic gastritis without bleeding Cystitis cystica Foreign body in bladder GERD without esophagitis Neurogenic bladder Restrictive lung disease Schizoaffective disorder, bipolar type Urgency incontinence Surgical History (Updated 09/21/20 @ 16:03 by Baltazar Montalvo MD) H/O colonoscopy with polypectomy H/O esophagogastroduodenoscopy (09/21/20) H/O: hysterectomy History of appendectomy History of breast biopsy History of foot surgery sx in 2009. Screws placed by Dr. Don. History of ureter stent Hx of cholecystectomy S/P bronchoscopy with biopsy Family History Mother No problems noted. Father No problems noted. Other Asthma Cancer Diabetes Heart disease Social History Smoking and tobacco status: current every day smoker cigarettes Years cigarettes smoked: 20 [ Other cigarette details: Hx of 1 PPD x 20 Years ] Quit status (tobacco): considering quitting Second hand smoke exposure: Yes Smoking risk assessment/counseling performed?: No Alcohol intake: never Counseling given: No Counseling given: No Lives independently: Yes Household members: spouse Marital status: Number of children: 3 Current occupational status: disabled History of recent travel: No Current gender identity: Female Physical Exam GI: GI image (female): 1. Gastric tenderness Course Consultations: Consultation #1: tory Time: 01:01 Vital Signs: Vital signs: Vital Signs Temperature 98.4 F 09/21/20 16:58 Pulse Rate 87 09/21/20 16:58 Respiratory Rate 18 09/21/20 16:58 Blood Pressure 97/63 09/21/20 16:58 Pulse Oximetry 100 09/21/20 16:58 MDM - Nausea/Vomiting/Diarrhea MDM Narrative: Medical decision making narrative: 54-year-old female checked out to me by Dr. Khan. She presents with upper abdominal pain. She has told him that she has had to have her esophagus dilated prior. Her white blood cell count is 18.9 with no left shift. She has a history of leukocytosis. Her other laboratory is normal. But, on reevaluation the patient, she is throwing up liquids after her p.o. challenge here. She is asking for observation admission or transfer so that she can have an EGD to see if she needs to be dilated again. I spoke with surgery, recommendations are n.p.o., and reevaluation in the morning with observation admission. Lab Data: Labs: Lab Results 09/20/20 09/20/20 09/20/20 Range/Units 21:54 21:54 21:54 WBC 18.9 H (4.0-10.0) 10^3/ uL RBC 4.30 (4.1-5.3) 10^6/u L Hgb 13.0 (11.5-15.3) g/dL Hct 41.2 (37.0-47.0) % MCV 95.8 (81-99) fL MCH 30.2 (28.0-34.0) pg MCHC 31.6 (30.0-36.0) g/dL RDW 16.9 H (12.1-15.1) % Plt Count 275 (130-400) 10^3/c mm MPV 9.6 (7.4-10.4) fL Neut % (Auto) 78.0 % Lymph % (Auto) 14.1 % Nuckolls % (Auto) 6.2 % Eos % (Auto) 0.0 % Baso % (Auto) 0.7 % Neut # (Auto) 14.72 H (1.8-7.7) 10^3/u L Lymph # (Auto) 2.7 (0.8-4.8) 10^3/u L Nuckolls # (Auto) 1.2 H (0.2-0.9) 10^3/u L Eos # (Auto) 0.0 (0.0-0.8) 10^3/u L Baso # (Auto) 0.1 (0.0-0.1) 10^3/u L Nucleated RBC % (a uto) 0 % Nucleated RBCs # 0.0 /100WBC Sodium 141 (136-145) mmol/L Potassium 4.2 (3.5-5.1) mmol/L Chloride 110 H (98-107) mmol/L Carbon Dioxide 24 (22-29) mmol/L Anion Gap 11.2 (5-19) BUN 20 (6-20) mg/dL Creatinine 0.9 (0.5-0.9) mg/dL GFR Calculation 65.8 L (90-130) mL/min Glucose 97 (65-115) mg/dL Calculated Osmolal ity 295 (285-295) mOsm/k g Lactate (0.5-2.2) mmol/L Calcium 9.0 (8.5-10.5) mg/dL Total Bilirubin 0.2 (0.15-1.2) mg/dL AST 16 (0-32) U/L ALT 25 (0-33) U/L Alkaline Phosphata se 137 H (35-105) IU/L Troponin T Gen 5 n g/L 6 (0-10) ng/L Total Protein 5.6 L (6.6-8.7) g/dL Albumin 3.7 (3.5-5.2) g/dL Globulin 1.9 (1.3-4.6) g/dL Lipase 22 (13-60) U/L Urine Color (Yellow) Urine Appearance (CLEAR) Urine pH (5-7) Ur Specific Gravit y (1.005-1.030) Urine Protein (Negative) Urine Glucose (UA) (Normal) Urine Ketones (Negative) Urine Blood (Negative) Urine Nitrate (Negative) Urine Bilirubin (Negative) Urine Urobilinogen (Negative) mg/dL Ur Leukocyte Stephanie ase (Negative) 09/20/20 09/20/20 Range/Units 22:24 22:56 WBC (4.0-10.0) 10^3/ uL RBC (4.1-5.3) 10^6/u L Hgb (11.5-15.3) g/dL Hct (37.0-47.0) % MCV (81-99) fL MCH (28.0-34.0) pg MCHC (30.0-36.0) g/dL RDW (12.1-15.1) % Plt Count (130-400) 10^3/c mm MPV (7.4-10.4) fL Neut % (Auto) % Lymph % (Auto) % Nuckolls % (Auto) % Eos % (Auto) % Baso % (Auto) % Neut # (Auto) (1.8-7.7) 10^3/u L Lymph # (Auto) (0.8-4.8) 10^3/u L Nuckolls # (Auto) (0.2-0.9) 10^3/u L Eos # (Auto) (0.0-0.8) 10^3/u L Baso # (Auto) (0.0-0.1) 10^3/u L Nucleated RBC % (a uto) % Nucleated RBCs # /100WBC Sodium (136-145) mmol/L Potassium (3.5-5.1) mmol/L Chloride (98-107) mmol/L Carbon Dioxide (22-29) mmol/L Anion Gap (5-19) BUN (6-20) mg/dL Creatinine (0.5-0.9) mg/dL GFR Calculation (90-130) mL/min Glucose (65-115) mg/dL Calculated Osmolal ity (285-295) mOsm/k g Lactate 0.6 (0.5-2.2) mmol/L Calcium (8.5-10.5) mg/dL Total Bilirubin (0.15-1.2) mg/dL AST (0-32) U/L ALT (0-33) U/L Alkaline Phosphata se (35-105) IU/L Troponin T Gen 5 n g/L (0-10) ng/L Total Protein (6.6-8.7) g/dL Albumin (3.5-5.2) g/dL Globulin (1.3-4.6) g/dL Lipase (13-60) U/L Urine Color Yellow (Yellow) Urine Appearance Clear (CLEAR) Urine pH 6.5 (5-7) Ur Specific Gravit y 1.010 (1.005-1.030) Urine Protein Neg (Negative) Urine Glucose (UA) Norm (Normal) Urine Ketones Negative (Negative) Urine Blood Neg (Negative) Urine Nitrate Negative (Negative) Urine Bilirubin Neg (Negative) Urine Urobilinogen Norm (Negative) mg/dL Ur Leukocyte Stephanie ase Negative (Negative) Discharge Plan Discharge Patient Disposition: Placed in Observation Admit Provider: Baltazar Montalvo Clinical Impression: Chronic reflux esophagitis, Chronic gastritis without bleeding, Esophageal stricture Discharge Diet: Advance as tolerated Discharge Activity: Resume usual activity Coding Level of Care Code ED Counselling Psychologist for Chg Fwd Exam Comprehensive
[2020-09-20] MEDS: ondansetron 2 mg/ML SDV 2 mL 4 MG IVP (22:10)
[2020-09-20 22:14] LABS: Basophils # 0.1 10^3/uL (0.0-0.1); Basophils % 0.7 %; Hematocrit 41.2 % (37.0-47.0); Lymphocytes # 2.7 10^3/uL (0.8-4.8); Lymphocytes % 14.1 %; Mean Corpuscular HGB Conc 31.6 g/dL (30.0-36.0); Mean Corpuscular Hemoglobin 30.2 pg (28.0-34.0); Mean Corpuscular Volume 95.8 fL (81-99); Mean Platelet Volume 9.6 fL (7.4-10.4); Monocytes # 1.2 10^3/uL (0.2-0.9); Monocytes % 6.2 %; Neutrophils # 14.72 10^3/uL (1.8-7.7); Nucleated Red Blood Cells % 0 %; Platelet Count 275 10^3/cmm (130-400); Red Cell Distribution Width 16.9 % (12.1-15.1); White Blood Count 18.9 10^3/uL (4.0-10.0)
[2020-09-20] MEDS: sodium chloride 0.9% 1,000 ML 999 ML IV (22:14)
[2020-09-20 22:33] LABS: Troponin T (5th) Once 6 ng/L (0-10)
[2020-09-20 22:34] LABS: Alanine Aminotransferase 25 U/L (0-33); Albumin Level 3.7 g/dL (3.5-5.2); Alkaline Phosphatase 137 IU/L (35-105); Anion Gap 11.2 (5-19); Aspartate Amino Transferase 16 U/L (0-32); Blood Urea Nitrogen 20 mg/dL (6-20); Carbon Dioxide 24 mmol/L (22-29); Chloride 110 mmol/L (98-107); Globulin 1.9 g/dL (1.3-4.6); Glomerular Filtration Rate 65.8 mL/min (90-130); Glucose 97 mg/dL (65-115); Lipase 22 U/L (13-60); Osmolality Calculated 295 mOsm/kg (285-295); Potassium 4.2 mmol/L (3.5-5.1); Sodium 141 mmol/L (136-145); Total Bilirubin 0.2 mg/dL (0.15-1.2); Total Protein 5.6 g/dL (6.6-8.7)
[2020-09-20 22:55] LABS: Lactate (Lactic Acid level) 0.6 mmol/L (0.5-2.2)
[2020-09-20 23:00] LABS: Add Urine Microscopic? NO
[2020-09-20 23:05] VITALS: BP 122/56; PULSE 89; RESP 15; O2SAT 96
[2020-09-20 23:11] LABS: Bilirubin Urine Neg (Negative); Blood Urine Neg (Negative); Glucose Urine UA Norm (Normal); Ketones Urine Negative (Negative); Leukocyte Esterase Urine Negative (Negative); Nitrate Urine Negative (Negative); Protein Urine Neg (Negative); Urine Appearance Clear (CLEAR); Urine Color Yellow (Yellow); Urobilinogen Urine Norm (Negative); pH Urine 6.5 (5-7)
[2020-09-20] MEDS: iohexol 300 mg/mL 100 mL Btl IV (23:29)
[2020-09-20 23:38] VITALS: RESP 17; O2SAT 98
[2020-09-20] MEDS: morphine 4 mg/mL SDV 1 mL IVP (23:38)
[2020-09-20] MEDS: lidocaine 2% viscous 15 ML, aluminum-mag hydrox-simethicon 30 ML, sucralfate oral liq 1 GM PO (23:41)
[2020-09-20 23:46] VITALS: PULSE 78; RESP 17; O2SAT 96
[2020-09-21] VITALS (14 sets, daily range): BP systolic 94–141; BP diastolic 55–81; PULSE 67–93; RESP 15–20; TEMP 36.2–37.1; O2SAT 95–100
[2020-09-21] MEDS: HYDROmorphone 1 mg/mL INJ 1 mL IVP (00:40)
[2020-09-21] MEDS: morphine 4 mg/mL SDV 1 mL IVP ×2 (03:11→08:37)
[2020-09-21] MEDS: pantoprazole 40 mg SDV IVP (03:11)
[2020-09-21] MEDS: sodium chloride 0.9% 1,000 ML 125 ML IV (03:18)
[2020-09-21] MEDS: ondansetron 2 mg/ML SDV 2 mL 4 MG IVP (04:11)
--- NOTE | 2020-09-21 08:00 | PM.HP ---
Providers/Chief Complaint Admitting Physician: Baltazar Montalvo MD Primary Care Provider: AMANDEEP Barclay Chief Complaint: N/V History of Present Illness Latesha Wilhelm is a 54 year old female who presented to the ER last night with complaints of difficulty with swallowing for 36 hours prior to the ER visit. Patient states that she has had 5 EGDs with dilations in February 2020. At present she denies any chest pain or abdominal pain, no nausea or vomiting but is unable to swallow any liquids or pills. Review of Systems General: Reports: 10 or more systems reviewed and unremarkable except in HPI and below Medications/Allergies Home Medications Medication Instructions Recorded Confirmed Last Taken Type ipratropium 0.5 mg-albuterol 3 mg See Rx Instructions .ROUTE 02/26/20 09/09/20 05/24/20 Rx (2.5 mg base)/3 mL nebulization .COMPLEX #1620 ml soln acetaminophen [Tylenol Arthritis 1,300 mg PO Q6H PRN 03/11/20 09/09/20 09/09/20 History Pain] ondansetron HCl [Zofran] 4 mg PO QID PRN #14 tab 03/19/20 09/09/20 05/23/20 Rx prochlorperazine maleate 5 mg PO TID PRN 04/14/20 09/09/20 04/23/20 History budesonide [Pulmicort] 0.5 mg INHALATION BID@0800,2100 05/24/20 09/09/20 09/09/20 History hydroxyzine pamoate 50 mg capsule See Rx Instructions .ROUTE 08/17/20 09/09/20 09/09/20 Rx .COMPLEX 30 Days #150 cap trazodone 300 mg tablet 300 mg PO BEDTIME@2100 #30 tab 08/17/20 09/09/20 09/08/20 Rx venlafaxine 75 mg capsule,extended 75 mg PO TID@, #90 cap 08/17/20 09/09/20 09/09/20 Rx release 24 hr albuterol sulfate 2 inh INHALATION Q6H PRN 30 Days g 08/31/20 09/09/20 09/09/20 Rx lorazepam 0.5 mg tablet 0.5 mg PO DAILY PRN 30 Days #30 tab 09/05/20 09/09/20 09/09/20 Rx albuterol sulfate 90 mcg/actuation See Rx Instructions .ROUTE 09/07/20 09/09/20 09/09/20 Rx aerosol inhaler .COMPLEX #18 g Ingrezza 80 mg PO DAILY@0600 09/09/20 09/09/20 09/09/20 History baclofen 10 mg PO BID@0600,1800 09/09/20 09/09/20 09/09/20 History buspirone 15 mg PO TID@0600,1200,1800 09/09/20 09/09/20 09/09/20 History fluticasone furoate-vilanterol 1 inh INHALATION DAILY@0600 09/09/20 09/09/20 09/09/20 History [Breo Ellipta] lamotrigine 200 mg PO DAILY@0600 09/09/20 09/09/20 09/09/20 History nystatin 1 applic TOPICAL BID@0800,1800 09/09/20 09/09/20 09/09/20 History wheat dextrin [Benefiber Healthy 5 g PO BID@0600,1800 09/09/20 09/09/20 09/09/20 History Shape] pantoprazole 40 mg PO DAILY@0800 #30 tab 09/21/20 Unknown Rx sucralfate [Carafate] 1 g PO Q6H 28 Days #112 tab 09/21/20 Unknown Rx Allergies Allergy/AdvReac Type Severity Reaction Status Date / Time Penicillins Allergy Severe ALGY-Anaphy Verified 09/09/20 16:40 laxis sulfamethoxazole Allergy Severe ALGY-Hives Verified 09/09/20 16:40 [From Bactrim] Tetracyclines Allergy Severe ALGY-Hives Verified 09/09/20 16:40 gabapentin [From Neurontin] Allergy Intermediate ADR-Halluci Verified 09/09/20 16:40 nating ketorolac [From Toradol] Allergy Intermediate ALGY-Rash Verified 09/09/20 16:40 lithium Allergy Intermediate ADR-Halluci Verified 09/09/20 16:40 nating fentanyl Allergy Mild rash Verified 09/09/20 16:40 adhesive tape Allergy Rash Verified 09/09/20 16:40 codeine Allergy GI Verified 09/09/20 16:40 haloperidol [From Haldol] Allergy unknown Verified 09/09/20 16:40 metoclopramide [From Reglan] Allergy ADR-Shakine Verified 09/09/20 16:40 ss quetiapine [From Seroquel] Allergy Unknown Verified 09/09/20 16:40 tramadol Allergy Unknown Verified 09/20/20 21:36 trimethoprim [From Bactrim] Allergy ALGY-Hives Verified 09/09/20 16:40 ziprasidone [From Geodon] AdvReac Severe ADR-Halluci Verified 09/09/20 16:40 nating risperidone [From Risperdal] AdvReac ADR-Halluci Verified 09/09/20 16:40 nating PFSH Acute PFSH: Medical History Bladder stone Borderline personality disorder Chronic anxiety Chronic back pain greater than 3 months duration Chronic gastritis without bleeding Cystitis cystica Foreign body in bladder GERD without esophagitis Neurogenic bladder Restrictive lung disease Schizoaffective disorder, bipolar type Urgency incontinence Surgical History H/O colonoscopy with polypectomy H/O esophagogastroduodenoscopy H/O: hysterectomy History of appendectomy History of breast biopsy History of foot surgery sx in 2009. Screws placed by Dr. oDn. History of ureter stent Hx of cholecystectomy S/P bronchoscopy with biopsy Family History Mother No problems noted. Father No problems noted. Other Asthma Cancer Diabetes Heart disease Social History Smoking and tobacco status: current every day smoker cigarettes Years cigarettes smoked: 20 [ Other cigarette details: Hx of 1 PPD x 20 Years ] Quit status (tobacco): considering quitting Second hand smoke exposure: Yes Smoking risk assessment/counseling performed?: No Alcohol intake: never Counseling given: No Counseling given: No Lives independently: Yes Household members: spouse Marital status: Number of children: 3 Current occupational status: disabled History of recent travel: No Current gender identity: Female Female Reproductive History: Date of last menstrual period: 06/19/95 Vitals/I&O/Wt Last Vital Signs Temp 97.1 F L 09/21/20 07:14 Pulse 67 09/21/20 07:14 Resp 18 09/21/20 07:14 BP 119/76 09/21/20 07:14 Pulse Ox 99 09/21/20 07:14 09/20/20 09/21/20 09/21/20 22:59 06:59 14:59 Intake Total 1000 / 1000 Balance 1000 / 1000 Weight last 48 hrs Weight 195 lb Physical Exam Narrative: EXAM NARRATIVE: HEENT: Normocephalic Eye: Sclera /conjunctiva normal Respiratory and chest: Bilateral clear breath sounds on auscultation Cardiovascular: Normal S1 and S2 heart sounds Abdomen: Soft to palpation Neurological: Oriented to place person and time Skin: Intact, no lesions appreciated on gross exam Data : 09/20/20 21:54 09/20/20 21:54 A&P Assessment and plan (1) Esophageal stricture: 54-year-old female with history of esophageal stricture was had 5 esophageal dilations in the last 7 months who now presents with esophageal obstruction due to food bolus Plan for EGD with biopsy for food bolus under general anesthesia Procedure, risks, benefits and alternatives have been discussed with the patient who wishes to proceed with surgery. Status: Acute Attestations Medical Necessity Statement*: Esophageal obstruction due to food bolus Coding Level of Care Code Acute College Service Officer for [facility] Fwd Diagnoses Esophageal stricture K22.2
--- NOTE | 2020-09-21 08:43 | PC.NURSE ---
Addendum entered by Gilmar Marie RN 09/21/20 15:09: GI LAB, NOT GL LAB Original Note: PT TAKEN TO GL LAB, HAVING PROCEDURE DONE
[2020-09-21] MEDS: sodium chloride 0.9% 1,000 ML 30 ML IV ×2 (09:06→12:15)
--- NOTE | 2020-09-21 09:26 | ANES.PREANE2 ---
Pre-Anesthetic Assessment Pre-Anesthetic Assessment: Height/Weight: Height 1.65 m Weight 88.451 kg Temp Pulse Resp BP Pulse Ox 97.6 F 78 18 141/81 98 09/21/20 08:51 09/21/20 08:51 09/21/20 08:51 09/21/20 08:51 09/21/20 08:51 Preop Diagnosis: Difficulty in swallowing Proposed Procedure: Operation Date: 09/21/20 10:00 Proposed Procedures p EGD(Not Applicable) - Baltazar Montalvo MD Familial anesthetic complications: None Was Beta Lala taken within 24 hours: N/A Was Clonidine taken within 24 hours: N/A Last intake: Intake Last Liquid Date 09/20/20 Last Liquid Time 21:00 Last Solid Date 09/19/20 Last Solid Time 08:00 Social: Social History: Tobacco Airway: Cervical ROM: WNL MP: 3 Dentition: Other (no teeth) Pulmonary: Pulmonary: COPD GI: GI: GERD Comments: Gi stricture Anesthetic Plan: ASA status: 3 Anesthesia: General Other: RSI Risk of > 500 ml blood loss (7ml/kg in children): No Meds/Allergies Current Medications: Current Medications Generic Name Dose Route Start Last Admin Trade Name Freq PRN Reason Stop Dose Admin Sodium Chloride 1,000 mls @ 125 m ls/hr 09/21/20 02:30 09/21/20 03:18 Sodium Chloride 0.9% IV 125 mls/hr .Q8H VALENTINO Administration Sodium Chloride 1,000 mls @ 30 ml s/hr 09/21/20 09:15 09/21/20 09:06 Sodium Chloride 0.9% IV 09/22/20 09:14 30 mls/hr .Q24H VALENTINO Administration Morphine Sulfate 4 mg 09/21/20 02:30 09/21/20 08:37 Morphine 4 Mg/Ml Sdv 1 Ml IVP 4 mg Q4H PRN Administration SEVERE PAIN Ondansetron HCl 4 mg 09/21/20 02:30 09/21/20 04:11 Ondansetron 2 Mg /Ml Sdv 2 Ml IVP 4 mg Q6H PRN Administration NAUSEA AND VOMITI NG Pantoprazole Sodiu m 40 mg 09/21/20 02:30 09/21/20 03:11 Pantoprazole 40 Mg Sdv IVP 40 mg Q12H VALENTINO Administration PFSH Anesthesia PFSH: Medical History Bladder stone Borderline personality disorder Chronic anxiety Chronic back pain greater than 3 months duration Chronic gastritis without bleeding Cystitis cystica Foreign body in bladder GERD without esophagitis Neurogenic bladder Restrictive lung disease Schizoaffective disorder, bipolar type Urgency incontinence Surgical History H/O colonoscopy with polypectomy H/O esophagogastroduodenoscopy H/O: hysterectomy History of appendectomy History of breast biopsy History of foot surgery sx in 2009. Screws placed by Dr. Don. History of ureter stent Hx of cholecystectomy S/P bronchoscopy with biopsy Family History Mother No problems noted. Father No problems noted. Other Asthma Cancer Diabetes Heart disease Social History Smoking and tobacco status: current every day smoker cigarettes Years cigarettes smoked: 20 [ Other cigarette details: Hx of 1 PPD x 20 Years ] Quit status (tobacco): considering quitting Second hand smoke exposure: Yes Smoking risk assessment/counseling performed?: No Alcohol intake: never Counseling given: No Counseling given: No Lives independently: Yes Household members: spouse Marital status: Number of children: 3 Current occupational status: disabled History of recent travel: No Current gender identity: Female Female Reproductive History: Date of last menstrual period: 06/19/95 Data Anesthesia CBC & Chem 7: 09/20/20 21:54 09/20/20 21:54 Other Labs: Laboratory Results - last 48 hr 09/20/20 09/20/20 09/20/20 21:54 21:54 21:54 WBC 18.9 H RBC 4.30 Hgb 13.0 Hct 41.2 MCV 95.8 MCH 30.2 MCHC 31.6 RDW 16.9 H Plt Count 275 MPV 9.6 Neut % (Auto) 78.0 Lymph % (Auto) 14.1 [place] % (Auto) 6.2 Eos % (Auto) 0.0 Baso % (Auto) 0.7 Neut # (Auto) 14.72 H Lymph # (Auto) 2.7 [place] # (Auto) 1.2 H Eos # (Auto) 0.0 Baso # (Auto) 0.1 Nucleated RBC % (auto) 0 Nucleated RBCs # 0.0 Sodium 141 Potassium 4.2 Chloride 110 H Carbon Dioxide 24 Anion Gap 11.2 BUN 20 Creatinine 0.9 GFR Calculation 65.8 L Glucose 97 Calculated Osmolality 295 Lactate Calcium 9.0 Total Bilirubin 0.2 AST 16 ALT 25 Alkaline Phosphatase 137 H Troponin T Gen 5 ng/L 6 Total Protein 5.6 L Albumin 3.7 Globulin 1.9 Lipase 22 Urine Color Urine Appearance Urine pH Ur Specific [place] Urine Protein Urine Glucose (UA) Urine Ketones Urine Blood Urine Nitrate Urine Bilirubin Urine Urobilinogen Ur Leukocyte Esterase 09/20/20 09/20/20 22:24 22:56 WBC RBC Hgb Hct MCV MCH MCHC RDW Plt Count MPV Neut % (Auto) Lymph % (Auto) [place] % (Auto) Eos % (Auto) Baso % (Auto) Neut # (Auto) Lymph # (Auto) [place] # (Auto) Eos # (Auto) Baso # (Auto) Nucleated RBC % (auto) Nucleated RBCs # Sodium Potassium Chloride Carbon Dioxide Anion Gap BUN Creatinine GFR Calculation Glucose Calculated Osmolality Lactate 0.6 Calcium Total Bilirubin AST ALT Alkaline Phosphatase Troponin T Gen 5 ng/L Total Protein Albumin Globulin Lipase Urine Color Yellow Urine Appearance Clear Urine pH 6.5 Ur Specific [place] 1.010 Urine Protein Neg Urine Glucose (UA) Norm Urine Ketones Negative Urine Blood Neg Urine Nitrate Negative Urine Bilirubin Neg Urine Urobilinogen Norm Ur Leukocyte Esterase Negative Cardiac Studies: No Data to Display
[2020-09-21] MEDS: midazolam 1 mg/mL INJ 2 mL 2 MG IVP (11:55)
--- NOTE | 2020-09-21 15:09 | PC.NURSE ---
AT APPROX 1200, PT WAS BROUGHT BACK TO FLOOR FROM GI LAB, PROCEDURE WAS DELAYED. AT APPROX, 1415 PT WAS TAKEN BACK TO GI LAB FOR PROCEDURE
--- NOTE | 2020-09-21 15:58 | PC.NURSE ---
AT APPROX. 1555 PT RETURNED FROM GI LAB. SHE IS RESTING IN BED.
--- NOTE | 2020-09-21 16:05 | PC.CHAP ---
Pastoral Care Encounter/Spiritual Assessment Type of Contact [] Declined lawn and garden technician visit [] Patient/Family/Request visit [] Outpatient visit [] Follow-up visit [] Physician referral [] Code/Alert [] Routine visit [] Staff referral [] Actively dying [] Patient sleeping [] Family support [] [] Out of room [] Palliative care [] [] Receiving care in room [] Pre-surgical visit [] Trauma [] Long length of stay [] ICU visit [] Other: Relational/Emotional Strength [] Patient feels connected with others/family/visitors/staff [] Distress [] Loneliness/isolation [] Abandonment Spirituality of Patient [] Person of Kate [] Attends Cheondoism of their Kate [] Believes in Prayer [] Reads Bible or Zoroastrianism materials [] There are Spiritual issues to be addressed Cabin Cleaner Interventions [] Prayer [] Active listening [] Non-anxious presence [] Spiritual/emotional support [] Crisis/trauma care [] Spiritual counseling [] Bereavement support [] Provided bereavement packet [] Provided Bible/devotional materials [] Provided toy/stuffed animal, coloring book to patient or family member [] Provided Communion [] Anointing/Immaculata [] Salvation [] Completed spiritual assessment [] Other: Impact on Illness or Injury [] Angry [] Fearful [] Anxious [] Often cries [] Exhaustion [] Unable to work [] Unable to attend adventist [] Unable to walk/stand [] Unable to read [] Unable to drive [] Unable to eat/drink [] Unable to sleep [] Unable to be with family [] Patient intubated [] Other: Summarywent home Time spent with patient
--- NOTE | 2020-09-21 16:06 | P.DS_ITS ---
Discharge Providers Date of Admission: 09/21/20 01:16 Date of Discharge: September 21, 2020 Attending Provider at Admission: Baltazar Montalvo MD Attending Provider at Discharge: Baltazar Montalvo MD Primary Care Provider: AMANDEEP Barclay Diagnoses at Discharge Discharge Diagnosis (1) Esophageal stricture: Status: Acute Reason for Visit Reason for Visit: N/V Hospital Course Hospital Course Latesha Wilhelm is a 54 year old female who presented to the ER last night with complaints of difficulty with swallowing for 36 hours prior to the ER visit. Patient states that she has had 5 EGDs with dilations in February 2020. At present she denies any chest pain or abdominal pain, no nausea or vomiting but is unable to swallow any liquids or pills. Patient was admitted to the hospital, but just prior to the EGD patient had a large episode of bilious emesis. A subsequent EGD had shown resolution of esophageal obstruction. Patient was started on a full liquid diet and discharged home later that day Protonix and Carafate Discharge Data Data Completed and Pending: Completed Studies During Hospitalization Category Date Time Status CT abdomen pelvis w con* [id number] Stat Cat Scan 09/20/20 21:49 Completed Labs from last 24 hours 09/20/20 09/20/20 09/20/20 22:56 22:24 21:54 WBC RBC Hgb Hct MCV MCH MCHC RDW Plt Count MPV Neut % (Auto) Lymph % (Auto) [place] % (Auto) Eos % (Auto) Baso % (Auto) Neut # (Auto) Lymph # (Auto) [place] # (Auto) Eos # (Auto) Baso # (Auto) Nucleated RBC % (a uto) Nucleated RBCs # Sodium Potassium Chloride Carbon Dioxide Anion Gap BUN Creatinine GFR Calculation Glucose Calculated Osmolal ity Lactate 0.6 Calcium Total Bilirubin AST ALT Alkaline Phosphata se Troponin T Gen 5 n g/L 6 Total Protein Albumin Globulin Lipase Urine Color Yellow Urine Appearance Clear Urine pH 6.5 Ur Specific Gravit y 1.010 Urine Protein Neg Urine Glucose (UA) Norm Urine Ketones Negative Urine Blood Neg Urine Nitrate Negative Urine Bilirubin Neg Urine Urobilinogen Norm Ur Leukocyte Stephanie ase Negative 09/20/20 09/20/20 21:54 21:54 WBC 18.9 H RBC 4.30 Hgb 13.0 Hct 41.2 MCV 95.8 MCH 30.2 MCHC 31.6 RDW 16.9 H Plt Count 275 MPV 9.6 Neut % (Auto) 78.0 Lymph % (Auto) 14.1 [place] % (Auto) 6.2 Eos % (Auto) 0.0 Baso % (Auto) 0.7 Neut # (Auto) 14.72 H Lymph # (Auto) 2.7 [place] # (Auto) 1.2 H Eos # (Auto) 0.0 Baso # (Auto) 0.1 Nucleated RBC % (a uto) 0 Nucleated RBCs # 0.0 Sodium 141 Potassium 4.2 Chloride 110 H Carbon Dioxide 24 Anion Gap 11.2 BUN 20 Creatinine 0.9 GFR Calculation 65.8 L Glucose 97 Calculated Osmolal ity 295 Lactate Calcium 9.0 Total Bilirubin 0.2 AST 16 ALT 25 Alkaline Phosphata se 137 H Troponin T Gen 5 n g/L Total Protein 5.6 L Albumin 3.7 Globulin 1.9 Lipase 22 Urine Color Urine Appearance Urine pH Ur Specific Gravit y Urine Protein Urine Glucose (UA) Urine Ketones Urine Blood Urine Nitrate Urine Bilirubin Urine Urobilinogen Ur Leukocyte Stephanie ase Vitals: Last Vital Signs Temp 98.4 F 09/21/20 15:40 Pulse 87 09/21/20 15:40 Resp 18 09/21/20 15:40 BP 97/63 09/21/20 15:40 Pulse Ox 100 09/21/20 15:40 Discharge Plan Discharge Patient Disposition: Home Condition: Stable Prescriptions: New Carafate 1 gram tablet 1 g PO Q6H 28 Days Qty: 112 RF: 0 Continued hydroxyzine pamoate 50 mg capsule See Rx Instructions .ROUTE .COMPLEX 30 Days Qty: 150 RF: 1 venlafaxine 75 mg capsule,extended release 24hr 75 mg PO TID@08,13,21 Qty: 90 RF: 1 trazodone 300 mg tablet 300 mg PO BEDTIME@2100 Qty: 30 RF: 1 ipratropium-albuterol 0.5 mg-3 mg(2.5 mg base)/3 mL solution for nebulization See Rx Instructions .ROUTE .COMPLEX Qty: 1620 RF: 3 lorazepam 0.5 mg tablet 0.5 mg PO DAILY PRN (Reason: Anxiety) 30 Days Qty: 30 RF: 1 albuterol sulfate [Ventolin HFA] 90 mcg/actuation HFA aerosol inhaler See Rx Instructions .ROUTE .COMPLEX Qty: 18 RF: 3 budesonide [Pulmicort] 0.5 mg/2 mL suspension for nebulization 0.5 mg INHALATION BID@0800,2100 RF: 0 albuterol sulfate 90 mcg/actuation HFA aerosol inhaler 2 inh inhalation Q6H PRN (Reason: shortness of breath or wheezing) 30 Days RF: 0 Benefiber Healthy Shape 5 gram/7.4 gram Powder 5 g PO BID@0600,1800 RF: 0 lamotrigine 200 mg tablet 200 mg PO DAILY@0600 RF: 0 baclofen 10 mg tablet 10 mg PO BID@0600,1800 RF: 0 nystatin 100,000 unit/gram powder 1 applic topical BID@0800,1800 RF: 0 buspirone 15 mg tablet 15 mg PO TID@0600,1200,1800 RF: 0 Breo Ellipta 100-25 mcg/dose blister with device 1 inh inhalation DAILY@0600 RF: 0 Ingrezza 80 mg capsule 80 mg PO DAILY@0600 RF: 0 acetaminophen [Tylenol Arthritis Pain] 650 mg Tablet Extended Release 1,300 mg PO Q6H PRN (Reason: Pain) RF: 0 ondansetron HCl [Zofran] 4 mg tablet 4 mg PO QID PRN (Reason: nausea and vomiting) Qty: 14 RF: 0 prochlorperazine maleate 5 mg tablet 5 mg PO TID PRN (Reason: Nausea) RF: 0 pantoprazole 40 mg tablet,delayed release (DR/EC) 40 mg PO DAILY@0800 Qty: 30 RF: 0 Discharge Orders: Discharge Order (Routine); Ordered 09/21/20 Ordered By: Baltazar Montalvo Referrals: Dara Tavera FNP [Primary Care Provider] - 09/24/20 10:00 am Discharge Diet: Advance as tolerated Discharge Activity: Resume usual activity Patient Instructions: Gastritis (ED), Gastroesophageal Reflux Disease (ED), Esophageal Spasm (ED), GI Discharge Instructions Activity Restrictions/Additional Instructions: Increase your pantoprazole to twice daily for the next week, then back to once daily. Other medications as directed. Call your nurse case manager tomorrow for a follow up appointment. Discharge Attestations Time Spent in Discharge Care*: less than 30 min Status at Discharge: Cognitive status at discharge: cognitively intact , Behavioral status at discharge: cooperative , Quality Metrics Clinical Quality Measures During this hospital stay, did patient experience: None Coding Level of Care Code Acute Chg FW DC note Diagnoses Esophageal stricture K22.2
--- NOTE | 2020-09-21 16:14 | PC.RESP ---
Smoking Cessation and Pulmonary Rehab information sent to patient.
--- NOTE | 2020-09-21 17:45 | ANE.PACU2 ---
Inpatient post-anesthesia follow up: Airway intact: Yes Vital signs: Temperature 98.4 F Pulse Rate [Monito r] 87 Pulse Rate 87 Respiratory Rate 18 Blood Pressure [Ri ght Arm] 129/65 Blood Pressure 97/63 Pulse Oximetry 100 Oxygen Delivery Me thod [ Nasal Cannula Current Rate & Del justine] Oxygen Delivery Me thod Nasal Cannula Oxygen Flow Rate [ Current Rate 2 & Delivery] Oxygen Flow Rate 2 Fraction of Inspir ed Oxygen Hydration adequate: Yes Nausea and vomiting: No Pain level: 2 Mental status: Baseline
== END 2020-09-21 17:00 | disposition home or self-care (01) ==
LOC: ER 09-21 01:06 → MEDSURG 09-21 01:40
PROVIDERS: Family Medicine; Admitting Provider Surgery; Emergency Provider Emergency Medicine; PCP Registered Nurse; Visit Provider Surgery
PROC: 0DJ08ZZ Inspection of Upper Intestinal Tract, Via Natural or Artificial Opening Endoscopic (ICD-10-PCS; CPT 43235; principal; 2020-09-21 10:00)
DX: K22.2 Esophageal obstruction (principal); K29.70 Gastritis, unspecified, without bleeding; K21.9 Gastro-esophageal reflux disease without esophagitis; J44.9 Chronic obstructive pulmonary disease, unspecified; F17.210 Nicotine dependence, cigarettes, uncomplicated
CPT/HCPCS: 36415; 43235; 74177; 80053; 81003; 83605; 83690; 84484; 85025; 93005; 96361; 96374; 96375; 99285; C9113; G0378; J1170; J2250; J2270; J2405; J7030; Q9967

== ENCOUNTER 2020-09-26 03:27 | Inpatient (IN) | payer MEDICARE, MEDICAID, SELFPAY ==
[2020-09-26] VITALS (7 sets, daily range): BP systolic 94–119; BP diastolic 63–76; PULSE 57–86; RESP 16–18; TEMP 36.5–36.8; O2SAT 94–98; BMI 33.3
[2020-09-26] MEDS: BuSPIRONE 10 mg Tablet 15 MG PO ×3 (06:49→18:19)
[2020-09-26] MEDS: lamoTRIgine 100 mg Tablet 200 MG PO (06:49)
[2020-09-26] MEDS: baclofen 10 mg Tablet PO ×2 (06:49→18:20)
[2020-09-26] MEDS: fluticasone nasal spray 16gm Btl 2 SPRAY NASAL (08:54)
[2020-09-26] MEDS: pantoprazole DR 40 mg Tablet PO (08:54)
--- NOTE | 2020-09-26 10:28 | PM.NHP ---
Providers/Chief Complaint Admitting Physician: Odell Escobedo DO Primary Care Provider: AMANDEEP Barclay Chief Complaint: SI HPI NPU History of Present Illness Latesha Wilhelm is a 54 year old female with history of schizoaffective disorder and borderline personality disorder with frequent hospitalizations secondary to chronic medical issues [facility] of suicidal ideation with concerns that she may try to harm herself by overdose with her trazodone. Patient intermittently is admitted to this unit with same complaint of suicidal ideation with thoughts about overdosing with last psychiatric hospitalization in the last 3 months on this unit during which time she immediately asked to discharge. Patient also typically complains of stress of living with an alcoholic . Patient reports intermittent depressive symptoms related to her chronic medical issues, I am sick and tired of being sick and tired. Patient currently denying any suicidal ideation although she continues to report intermittent depressive symptoms. Patient denies any psychotic symptoms, denies any auditory or visual hallucinations. Patient recently admitted with complaint of gastritis and recently had endoscopy. She also reports being discharged from a hospitalization a couple weeks ago secondary to pneumonia. She currently only complains of musculoskeletal aches and pains. She occasionally reports some shortness of breath which is relieved with supplemental oxygen. Patient reports being compliant with her medication at home and denies any medication side effects. Review of Systems General: Reports: 10 or more systems reviewed and unremarkable except in HPI and below Meds NPU Home Medications Medication Instructions Recorded Confirmed Last Taken Type acetaminophen [Tylenol Arthritis 1,000 mg PO Q6H PRN 03/11/20 09/26/20 09/09/20 History Pain] ondansetron HCl [Zofran] 4 mg PO QID PRN #14 tab 03/19/20 09/26/20 05/23/20 Rx prochlorperazine maleate 5 mg PO TID PRN 04/14/20 09/26/20 04/23/20 History trazodone 300 mg tablet 300 mg PO BEDTIME@2100 #30 tab 08/17/20 09/26/20 09/08/20 Rx venlafaxine 75 mg capsule,extended 75 mg PO TID@08,13,21 #90 cap 08/17/20 09/26/20 09/25/20 Rx release 24 hr lorazepam 0.5 mg tablet 0.5 mg PO DAILY PRN 30 Days #30 tab 09/05/20 09/26/20 09/09/20 Rx Benefiber Healthy Shape 5 g PO BID@0600,1800 09/09/20 09/26/20 09/25/20 History Breo Ellipta 1 inh INHALATION DAILY@0600 09/09/20 09/26/20 09/25/20 History Ingrezza 80 mg PO DAILY@0600 09/09/20 09/26/20 09/25/20 History baclofen 10 mg PO BID@0600,1800 09/09/20 09/26/20 09/25/20 History buspirone 15 mg PO TID@0600,1200,1800 09/09/20 09/26/20 09/25/20 History lamotrigine 200 mg PO DAILY@0600 09/09/20 09/26/20 09/25/20 History pantoprazole 40 mg PO DAILY@0800 #30 tab 09/21/20 09/26/20 09/25/20 Rx Phenergan 25 mg [place] BID PRN 09/26/20 09/26/20 Unknown History albuterol sulfate 2 puff INHALATION Q6H PRN 09/26/20 09/26/20 Unknown History hydroxyzine pamoate 50 mg PO QID PRN 09/26/20 09/26/20 Unknown History ipratropium-albuterol 3 ml INHALATION Q4H PRN 09/26/20 09/26/20 Unknown History Allergies Allergy/AdvReac Type Severity Reaction Status Date / Time Penicillins Allergy Severe ALGY-Anaphy Verified 09/09/20 16:40 laxis sulfamethoxazole Allergy Severe ALGY-Hives Verified 09/09/20 16:40 [From Bactrim] Tetracyclines Allergy Severe ALGY-Hives Verified 09/09/20 16:40 gabapentin [From Neurontin] Allergy Intermediate ADR-Halluci Verified 09/09/20 16:40 nating ketorolac [From Toradol] Allergy Intermediate ALGY-Rash Verified 09/09/20 16:40 lithium Allergy Intermediate ADR-Halluci Verified 09/09/20 16:40 nating fentanyl Allergy Mild rash Verified 09/09/20 16:40 adhesive tape Allergy Rash Verified 09/09/20 16:40 codeine Allergy GI Verified 09/09/20 16:40 duloxetine [From Cymbalta] Allergy ALGY-Rash Verified 09/26/20 05:15 fluoxetine Allergy ADR-Migrain Verified 09/26/20 05:17 e haloperidol [From Haldol] Allergy unknown Verified 09/09/20 16:40 influenza virus vacc Allergy ALGY-Difficulty Verified 09/26/20 05:17 trivalent, who Breathing metoclopramide [From Reglan] Allergy ADR-Shakine Verified 09/09/20 16:40 ss pneumococcal vaccine Allergy ALGY-Anaphy Verified 09/26/20 05:17 laxis quetiapine [From Seroquel] Allergy Unknown Verified 09/09/20 16:40 tramadol Allergy Unknown Verified 09/20/20 21:36 trimethoprim [From Bactrim] Allergy ALGY-Hives Verified 09/09/20 16:40 ziprasidone [From Geodon] AdvReac Severe ADR-Halluci Verified 09/09/20 16:40 nating risperidone [From Risperdal] AdvReac ADR-Halluci Verified 09/09/20 16:40 nating PFSH NPU PFSH: Medical History Bladder stone Borderline personality disorder Chronic anxiety Chronic back pain greater than 3 months duration Chronic gastritis without bleeding Cystitis cystica Foreign body in bladder GERD without esophagitis Neurogenic bladder Restrictive lung disease Schizoaffective disorder, bipolar type Urgency incontinence Surgical History H/O colonoscopy with polypectomy H/O esophagogastroduodenoscopy (09/21/20) H/O: hysterectomy History of appendectomy History of breast biopsy History of foot surgery sx in 2009. Screws placed by Dr. Don. History of ureter stent Hx of cholecystectomy S/P bronchoscopy with biopsy Family History Mother No problems noted. Father No problems noted. Other Asthma Cancer Diabetes Heart disease Social History Smoking and tobacco status: current every day smoker cigarettes Years cigarettes smoked: 20 [ Other cigarette details: Hx of 1 PPD x 20 Years ] Quit status (tobacco): considering quitting Second hand smoke exposure: Yes Smoking risk assessment/counseling performed?: No Alcohol intake: never Counseling given: No Counseling given: No Lives independently: Yes Household members: spouse Marital status: Number of children: 3 Current occupational status: disabled History of recent travel: No Current gender identity: Female Other Psychiatric History: Other Psychiatric History: Reports history of longstanding psychiatric issues with first overdose attempt at age 19, last overdose attempt 3 years ago, treated by [facility] for schizoaffective disorder and borderline personality disorder Last psychiatric hospitalization 3 months ago in June 2020 Mental Status Exam MSE Comments: Appears significantly older than stated age, short hair, appropriately groomed and dressed, sitting up on her bed, calm, cooperative, interactive, good eye contact Psychomotor activity is neither increased nor decreased, no agitation Speech is normal rate and volume, spontaneous, clear articulation, not pressured I feel pretty good, full range, not labile Alert and oriented to person, place, time, situation Memory and concentration appear to be intact per interview Intellectual functioning appears to be average based on vocabulary, interview Thought process, linear, no flight of ideas, no looseness of associations Thought content, no delusions, no hallucinations, no suicidal or homicidal ideation Insight and judgment appear to be intact Vitals/I&O/Wt Last Vital Signs Temp 97.7 F 09/26/20 06:00 Pulse 57 L 09/26/20 06:00 Resp 16 09/26/20 06:00 BP 116/76 09/26/20 06:00 Pulse Ox 97 09/26/20 06:00 09/25/20 09/26/20 09/26/20 22:59 06:59 14:59 Intake Total 420 / 420 Balance 420 / 420 Weight last 48 hrs Weight 90.718 kg Weight 90.718 kg A&P Assessment and plan (1) Suicidal ideation: Status: Acute (2) Depression: Status: Acute Qualifiers: Depression Type: unspecified Qualified Code(s): F32.9 - Major depressive disorder, single episode, unspecified Additional A&P Information Patient presenting with suicidal ideation with threat of overdosing with her trazodone in the context of multiple chronic medical issues. Currently denying any suicidal ideation but continues to report some depressive symptoms. Denies any psychotic symptoms. INVOLUNTARY One-to-one observation for use of supplemental oxygen ADMIT to inpatient psychiatry START Lexapro 5 mg daily targeting depressive symptoms CONTINUE home medication, continue home supplemental oxygen Coordinate with director of social media marketing for post discharge follow-up care Involuntary Hold Information 96 Hour Hold: 96 Hour Involuntary Admission: No Attestations NPU Medical Necessity Statement*: Psychiatric hospitalization required for ongoing suicidal ideation, observation for return of any suicidal ideation and behavior, medication stabilization, coordination for safe discharge Anticipate hospital stay to exceed 2 midnights Time Spent in Patient Care: Greater than 35 minutes (>than 50% of time spent in counselling and/or direct pt care on unit). 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
[2020-09-26] MEDS: escitalopram 10 mg Tablet 5 MG PO (11:22)
[2020-09-26] MEDS: LORazepam 0.5 mg Tablet PO (11:22)
--- NOTE | 2020-09-26 13:16 | ECG_ITS ---
[facility] Test Date: 2020-09-26 Pat Name: Latesha Wilhelm Department: Room: 151 Gender: Female Head Of Quality: : 1965 Requested By: Manny Yancey Order Number: [id number] Alice MD: Severo Aly M.D. Measurements Intervals [place] Rate: 66 P: 58 [place]: 151 QRS: 70 QRSD: 93 T: 107 QT: 412 QTc: 432 Interpretive Statements SINUS RHYTHM Compared to ECG 09/20/2020 21:50:45 No significant changes Electronically Signed On 09-27-2020 15:33:47 CDT by Severo Aly M.D. [id number]
--- NOTE | 2020-09-26 13:18 | P.CONIM_ITS ---
Providers/Reason For Consult Consulting Physican/Specialty*: Hospitalist Reason for Consult*: Chest pain Attending Physician: Odell Escobedo DO Primary Care Provider: AMANDEEP Barclay History of Present Illness History of Present Illness 54-year-old female with a past medical history significant for schizoaffective disorder, borderline personality disorder, restrictive lung disease, GERD and reported history esophageal strictures requiring EGD/dilation who was admitted to [facility] with suicidal ideation now complaining of substernal chest pain. Patient stated she has felt similar chest discomfort in the past which she attributed to her reflux esophagitis and stricture. She denied any nausea or vomiting currently. Noted recent EGD with dilation however as per EGD report on 09/23/20 no stricture was noted, only a large food bolus was seen related to her emesis at that time. In addition noted prior cardiac work up 2-3 years ago which included a nuclear stress test which was negative, has never needed a cardiac Cath. Currently no respiratory distress, diaphoresis. Vitals stable. Case was discussed with nursing staff. Review of Systems General: Reports: 10 or more systems reviewed and unremarkable except in HPI and below Meds/Allergies Home Medications and Allergies Home Medications Medication Instructions Recorded Confirmed Last Taken Type acetaminophen [Tylenol Arthritis 1,000 mg PO Q6H PRN 03/11/20 09/26/20 09/09/20 History Pain] ondansetron HCl [Zofran] 4 mg PO QID PRN #14 tab 03/19/20 09/26/20 05/23/20 Rx prochlorperazine maleate 5 mg PO TID PRN 04/14/20 09/26/20 04/23/20 History trazodone 300 mg tablet 300 mg PO BEDTIME@2100 #30 tab 08/17/20 09/26/20 09/08/20 Rx venlafaxine 75 mg capsule,extended 75 mg PO TID@08,, #90 cap 08/17/20 09/26/20 09/25/20 Rx release 24 hr lorazepam 0.5 mg tablet 0.5 mg PO DAILY PRN 30 Days #30 tab 09/05/20 09/26/20 09/09/20 Rx Benefiber Healthy Shape 5 g PO BID@0600,1800 09/09/20 09/26/20 09/25/20 History Breo Ellipta 1 inh INHALATION DAILY@0600 09/09/20 09/26/20 09/25/20 History Ingrezza 80 mg PO DAILY@0600 09/09/20 09/26/20 09/25/20 History baclofen 10 mg PO BID@0600,1800 09/09/20 09/26/20 09/25/20 History buspirone 15 mg PO TID@0600,1200,1800 09/09/20 09/26/20 09/25/20 History lamotrigine 200 mg PO DAILY@0600 09/09/20 09/26/20 09/25/20 History pantoprazole 40 mg PO DAILY@0800 #30 tab 09/21/20 09/26/20 09/25/20 Rx Phenergan 25 mg [place] BID PRN 09/26/20 09/26/20 Unknown History albuterol sulfate 2 puff INHALATION Q6H PRN 09/26/20 09/26/20 Unknown History hydroxyzine pamoate 50 mg PO QID PRN 09/26/20 09/26/20 Unknown History ipratropium-albuterol 3 ml INHALATION Q4H PRN 09/26/20 09/26/20 Unknown History Allergies Allergy/AdvReac Type Severity Reaction Status Date / Time Penicillins Allergy Severe ALGY-Anaphy Verified 09/09/20 16:40 laxis sulfamethoxazole Allergy Severe ALGY-Hives Verified 09/09/20 16:40 [From Bactrim] Tetracyclines Allergy Severe ALGY-Hives Verified 09/09/20 16:40 gabapentin [From Neurontin] Allergy Intermediate ADR-Halluci Verified 09/09/20 16:40 nating ketorolac [From Toradol] Allergy Intermediate ALGY-Rash Verified 09/09/20 16:40 lithium Allergy Intermediate ADR-Halluci Verified 09/09/20 16:40 nating fentanyl Allergy Mild rash Verified 09/09/20 16:40 adhesive tape Allergy Rash Verified 09/09/20 16:40 codeine Allergy GI Verified 09/09/20 16:40 duloxetine [From Cymbalta] Allergy ALGY-Rash Verified 09/26/20 05:15 fluoxetine Allergy ADR-Migrain Verified 09/26/20 05:17 e haloperidol [From Haldol] Allergy unknown Verified 09/09/20 16:40 influenza virus vacc Allergy ALGY-Difficulty Verified 09/26/20 05:17 trivalent, who Breathing metoclopramide [From Reglan] Allergy ADR-Shakine Verified 09/09/20 16:40 ss pneumococcal vaccine Allergy ALGY-Anaphy Verified 09/26/20 05:17 laxis quetiapine [From Seroquel] Allergy Unknown Verified 09/09/20 16:40 tramadol Allergy Unknown Verified 09/20/20 21:36 trimethoprim [From Bactrim] Allergy ALGY-Hives Verified 09/09/20 16:40 ziprasidone [From Geodon] AdvReac Severe ADR-Halluci Verified 09/09/20 16:40 nating risperidone [From Risperdal] AdvReac ADR-Halluci Verified 09/09/20 16:40 nating Current Medications Current Medications Generic Name Dose Route Start Last Admin Trade Name Freq PRN Reason Stop Dose Admin Baclofen 10 mg 09/26/20 06:00 09/26/20 06:49 Baclofen 10 Mg Tablet PO 10 mg BID@0600,1800 VALENTINO Administration Buspirone HCl 15 mg 09/26/20 06:00 09/26/20 13:08 Buspirone 10 Mg Tablet PO 15 mg TID@0600,1200,1800 VALENTINO Administration Escitalopram Oxalate 5 mg 09/26/20 10:30 09/26/20 11:22 Escitalopram 10 Mg Tablet PO 5 mg DAILY VALENTINO Administration Fluticasone Propionate 2 spray 09/26/20 09:00 09/26/20 08:54 Fluticasone Nasal [place] 16gm Btl NASAL 2 spray DAILY VALENTINO Administration Lamotrigine 200 mg 09/26/20 06:00 09/26/20 06:49 Lamotrigine 100 Mg Tablet PO 200 mg DAILY@0600 VALENTINO Administration Lorazepam 0.5 mg 09/26/20 04:28 09/26/20 11:22 Lorazepam 0.5 Mg Tablet PO 0.5 mg DAILY PRN Administration Anxiety Pantoprazole Sodium 40 mg 09/26/20 08:00 09/26/20 08:[address] 40 Mg Tablet PO 40 mg DAILY@0800 VALENTINO Administration PFSH Acute PFSH: Medical History Bladder stone Borderline personality disorder Chronic anxiety Chronic back pain greater than 3 months duration Chronic gastritis without bleeding Cystitis cystica Foreign body in bladder GERD without esophagitis Neurogenic bladder Restrictive lung disease Schizoaffective disorder, bipolar type Urgency incontinence Surgical History H/O colonoscopy with polypectomy H/O esophagogastroduodenoscopy (09/21/20) H/O: hysterectomy History of appendectomy History of breast biopsy History of foot surgery sx in 2009. Screws placed by Dr. Don. History of ureter stent Hx of cholecystectomy S/P bronchoscopy with biopsy Family History Mother No problems noted. Father No problems noted. Other Asthma Cancer Diabetes Heart disease Social History Smoking and tobacco status: current every day smoker cigarettes Years cigarettes smoked: 20 [ Other cigarette details: Hx of 1 PPD x 20 Years ] Quit status (tobacco): considering quitting Second hand smoke exposure: Yes Smoking risk assessment/counseling performed?: No Alcohol intake: never Counseling given: No Counseling given: No Lives independently: Yes Household members: spouse Marital status: Number of children: 3 Current occupational status: disabled History of recent travel: No Current gender identity: Female Female Reproductive History: Date of last menstrual period: 06/19/95 Vitals/I&O/Wt Last Vital Signs Temp 98.3 F 09/26/20 12:19 Pulse 85 09/26/20 12:19 Resp 18 09/26/20 12:19 BP 119/66 09/26/20 12:19 Pulse Ox 97 09/26/20 12:19 09/25/20 09/26/20 09/26/20 22:59 06:59 14:59 Intake Total 420 / 420 Balance 420 / 420 Weight last 48 hrs Weight 90.718 kg Weight 90.718 kg Physical Exam Narrative: EXAM NARRATIVE: Alert, awake oriented x3, NAD HEENT : EOMI, PERRLA CVS: NSR Chest : CTABL ABD: Soft, NT,ND Ext: No edema A&P Assessment and plan (1) Chest pain: Status: Acute (2) Esophageal stricture: Status: Acute (3) Suicidal ideation: Status: Acute Chest pain - ACS r/o - Suspected to be due to reflux - EKG - NSR, NO ST changes to suggest acute ischemia - Troponin trend ordered - May consider ECHO if persistent and or stress pending clinical course - Repeat labs in AM - Noted hypotension with SL NGT in past GERD with hx of esophageal stricture - Continue PPI - Will give GI cocktail - Dietary mod Suicidal ideation / Schizoaffective / B.P.D - Management per Psych DVT ppx - Ambulatory - Low risk Consult Attestations Medical Necessity Statement: Continue hospitalization for management of psychiatric care and workup of chest pain Time Spent in Patient Care: Greater than 35 minutes (>than 50% of time spent in counselling and/or direct pt care on unit) . 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
[2020-09-26 14:24] LABS: Troponin(5th) Baseline 23 ng/L (0-10)
[2020-09-26] MEDS: lidocaine 2% viscous 15 ML, aluminum-mag hydrox-simethicon 30 ML, sucralfate oral liq 1 GM PO (14:54)
[2020-09-26 16:13] LABS: Troponin 5 2HR 25.94 ng/L (0-10); Troponin 5 2HR Delta 2.94 ABS# (0-10)
[2020-09-26 19:35] LABS: Troponin 5 6HR 23.82 ng/L (0-10); Troponin 5 6HR Delta 0.82 ng/L (0-12)
[2020-09-26] MEDS: OLANZapine 5 mg ODT PO (19:57)
[2020-09-26] MEDS: hyDROXYzine 25 mg Capsule 50 MG PO (19:57)
[2020-09-26] MEDS: albuterol 8 gm MDI 2 PUFF INHALATION (20:12)
--- NOTE | 2020-09-26 21:14 | PC.NURSE ---
At 1956, pt was given Vistaril 50mg po and zyprexa 5mg po for increased anxiety over another pt on the unit. Pt is now resting quietly with both eyes closed.
[2020-09-27] VITALS (7 sets, daily range): BP systolic 98–123; BP diastolic 61–81; PULSE 72–95; RESP 15–18; TEMP 36.3–37.1; O2SAT 95–99
[2020-09-27] MEDS: baclofen 10 mg Tablet PO ×2 (05:15→17:42)
[2020-09-27] MEDS: BuSPIRONE 10 mg Tablet 15 MG PO ×3 (05:15→17:42)
[2020-09-27] MEDS: lamoTRIgine 100 mg Tablet 200 MG PO (05:15)
[2020-09-27] MEDS: pantoprazole DR 40 mg Tablet PO (08:06)
[2020-09-27] MEDS: fluticasone nasal spray 16gm Btl 2 SPRAY NASAL (08:06)
[2020-09-27] MEDS: escitalopram 10 mg Tablet 5 MG PO (08:06)
[2020-09-27] MEDS: acetaminophen 500 mg Tablet 1000 MG PO (08:50)
[2020-09-27] MEDS: LORazepam 0.5 mg Tablet PO (08:51)
[2020-09-27] MEDS: albuterol 8 gm MDI 2 PUFF INHALATION ×2 (08:54→21:00)
--- NOTE | 2020-09-27 11:56 | PM.NPN ---
Subjective NPU Subjective: Interval history: Patient reports improvement in her depressive symptoms although she communicates that she needs to develop better coping strategies with her ongoing, chronic medical issues which exacerbate her depressive symptoms. She denies any interval suicidal ideation. She reports that her sleep has improved, improving appetite Reports being compliant with her medication and denies any medication side effects Mental Status Exam MSE Comments: Patient appears upbeat, calm, cooperative, well kempt, appropriately groomed and dressed, good eye contact Psychomotor activity is neither increased nor decreased, no agitation Speech is normal rate and volume, spontaneous, clear articulation, not pressured I feel better, full range, not labile Alert and oriented to person, place, time, situation Memory and concentration appear to be intact per interview Thought process, linear, no flight of ideas, no looseness of associations Thought content, no delusions, no hallucinations, no suicidal or homicidal ideation Insight and judgment appear to be intact Vitals/I&O/Wt Last Vital Signs Temp 98.2 F 09/27/20 06:00 Pulse 77 09/27/20 09:03 Resp 16 09/27/20 08:56 BP 98/61 09/27/20 06:00 Pulse Ox 95 09/27/20 08:56 Weight last 48 hrs Weight 90.718 kg Weight 90.718 kg Weight 90.718 kg A&P Assessment and plan (1) Suicidal ideation: Status: Acute (2) Depression: Status: Acute Qualifiers: Depression Type: unspecified Qualified Code(s): F32.9 - Major depressive disorder, single episode, unspecified Additional A&P Information Patient reports some improvement in her depressive symptoms. Patient seen by hospitalist for transient chest pain with unremarkable EKG, continues to be monitored. Patient reports being compliant with medication with no medication side effects reporting that she slept better, improving appetite. Communicates that she understands that she needs to develop better coping with her chronic medical conditions. CONTINUE current medication, continue to monitor. Involuntary Hold Information 96 Hour Hold: 96 Hour Involuntary Admission: No Attestations NPU Medical Necessity Statement*: Continues to require psychiatric hospitalization for medication stabilization, coordination for safe discharge Coding Level of Care Code Acute Accounting Technician for [facility] Fwd Diagnoses Suicidal ideation R45.851 Depression F32.9 Depression Type: unspecified
--- NOTE | 2020-09-27 18:59 | PM.PN ---
Subjective Subjective: Interval history: Discussed with nursing staff as patient was sleeping. Patient CP resolved no further complaints. vitals stable. No nausea or vomiting. Medications: Reviewed: Yes Vitals/I&O/Wt Last Vital Signs Temp 98.7 F 09/27/20 13:38 Pulse 95 09/27/20 13:38 Resp 18 09/27/20 13:38 BP 100/72 09/27/20 13:38 Pulse Ox 97 09/27/20 13:38 Weight last 48 hrs Weight 90.718 kg Weight 90.718 kg Weight 90.718 kg Physical Exam Narrative: EXAM NARRATIVE: Visual assessment - Resting comfortably - NAD - Non-labored respiration A&P Assessment and plan (1) Chest pain: Status: Acute (2) Esophageal stricture: Status: Acute (3) Suicidal ideation: Status: Acute Atypical CP - Suspected to be due to reflux - resolved after GI cocktail, no recurrance. - EKG - NSR, NO ST changes to suggest acute ischemia - Troponin trend not consistent with acute ischemia - Continue PPI - Outpatient follow up with cardiology GERD with hx of esophageal stricture - Continue PPI - S/p GI cocktail 09/26 - Dietary mod Suicidal ideation / Schizoaffective / B.P.D - Management per Psych D/w nursing staff. Medicine will sign-off, please call with any questions or symptoms. 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
[2020-09-27] MEDS: OLANZapine 5 mg ODT PO (20:00)
[2020-09-27] MEDS: hyDROXYzine 25 mg Capsule 50 MG PO ×2 (20:00→21:51)
--- NOTE | 2020-09-27 20:38 | PC.NURSE ---
pt to desk, requested meds for sleep and anxiety. pt stated the med given to her last night, worked really well for me. Zyprexa 5mg po and vistaril 50mg po
--- NOTE | 2020-09-27 22:04 | PC.NURSE ---
pt up to desk, complaining of i'm getting agitated cause i'm feeling like i can't breath . Vistaril 50mg po given.
[2020-09-28] MEDS: acetaminophen 500 mg Tablet 1000 MG PO ×2 (02:46→09:01)
--- NOTE | 2020-09-28 02:57 | PC.NURSE ---
pt requested for tylenol for back pain. tylenol 1000mg po given.
[2020-09-28 05:14] VITALS: BP 132/85; PULSE 91; RESP 16; TEMP 36.3; O2SAT 96
[2020-09-28] MEDS: BuSPIRONE 10 mg Tablet 15 MG PO (06:35)
[2020-09-28] MEDS: baclofen 10 mg Tablet PO (06:35)
[2020-09-28] MEDS: lamoTRIgine 100 mg Tablet 200 MG PO (06:35)
[2020-09-28] MEDS: pantoprazole DR 40 mg Tablet PO (07:36)
[2020-09-28] MEDS: LORazepam 0.5 mg Tablet PO (07:36)
[2020-09-28] MEDS: escitalopram 10 mg Tablet 5 MG PO (07:36)
[2020-09-28] MEDS: fluticasone nasal spray 16gm Btl 2 SPRAY NASAL (07:37)
--- NOTE | 2020-09-28 07:39 | PC.NURSE ---
PRN ATIVAN 0.5 MG GIVEN PO PER PT C/O STATED ANXIETY. WILL CONT TO MONITOR
[2020-09-28 09:44] VITALS: PULSE 100; RESP 18; O2SAT 99
--- NOTE | 2020-09-28 10:05 | P.DS_ITS ---
Diagnoses at Discharge Discharge Diagnosis (1) Chest pain: Status: Acute (2) Esophageal stricture: Status: Acute (3) Suicidal ideation: Status: Acute Reason for Visit Reason for Visit: SI Hospital Course Hospital Course 54 year old female with history of schizoaffective disorder and borderline personality disorder with frequent hospitalizations secondary to chronic medical issues presented to an [facility] emergency department complaining of suicidal ideation with concerns that she may try to harm herself by overdose with her trazodone. Patient continued to report some depressive symptoms at the time of her initial evaluation which she reports is exacerbated by her chronic medical issues. Patient's antidepressant was switched from venlafaxine to Lexapro 5 mg daily with no reported medication side effects and good effect. During her hospitalization, patient complained of chest pain and was promptly evaluated by the hospitalist. Her EKG was unremarkable and she subsequently no longer complained of any chest pain. Patient reconstituted quite quickly and participated in unit milieu with no reports of any behavioral disturbances. She reports that she has a follow-up appointment with her psychiatrist on 13 October and therapy appointment later this week. Patient was not suicidal at the time of discharge and did not appear to pose an imminent threat of harm to self or others. Low to moderate risk of harm to self given no current suicidal ideation and no current depressive symptoms although patient has a history of poor coping with frequent admissions for unclear reasons, typically complaining of somatic complaints or chest pain in order to gain admission and then subsequently reporting suicidality if unable to be admitted. Her risk may be elevated if she continues to demonstrate poor coping or if she is noncompliant with her medication, medication management and therapy follow-up leading to unexpected, impulsive behavior or maladaptive coping strategies. Risk mitigation included psychiatric hospitalization for observation for any persisting suicidal ideation or behaviors, medication stabilization, coordination for safe discharge. Patient was able to communicate her understanding of the need to be compliant with her medication, medication management as well as therapy in order to develop more adaptive coping strategies in order to further mitigate her risk of harm to self and others. Involuntary Hold Information 96 Hour Hold: 96 Hour Involuntary Admission: No Mental Status Exam MSE Comments: Sitting in the day room, polite, interactive, appropriately groomed and dressed, good eye contact Psychomotor activity is neither increased nor decreased, no agitation Speech is normal rate and volume, spontaneous, clear articulation, not pressured Pretty good, full range, smiles appropriately at times during interview, not labile Alert and oriented to person, place, time, situation Memory and concentration appear to be intact per interview Thought process, linear, no flight of ideas, no looseness of associations Thought content, no delusions, no hallucinations, no suicidal or homicidal ideation Insight and judgment appear to be intact Discharge Data Vitals: Last Vital Signs Temp 97.3 F L 09/28/20 05:14 Pulse 100 09/28/20 09:44 Resp 18 09/28/20 09:44 BP 132/85 09/28/20 05:14 Pulse Ox 99 09/28/20 09:44 Discharge Plan Discharge Patient Disposition: Home Condition: Stable Prescriptions: New escitalopram oxalate 10 mg Tablet 5 mg PO DAILY Qty: 30 RF: 0 Continued trazodone 300 mg tablet 300 mg PO BEDTIME@2100 Qty: 30 RF: 1 lorazepam 0.5 mg tablet 0.5 mg PO DAILY PRN (Reason: Anxiety) 30 Days Qty: 30 RF: 1 Benefiber Healthy Shape 5 gram/7.4 gram Powder 5 g PO BID@0600,1800 RF: 0 lamotrigine 200 mg tablet 200 mg PO DAILY@0600 RF: 0 baclofen 10 mg tablet 10 mg PO BID@0600,1800 RF: 0 buspirone 15 mg tablet 15 mg PO TID@0600,1200,1800 RF: 0 Breo Ellipta 100-25 mcg/dose blister with device 1 inh inhalation DAILY@0600 RF: 0 Ingrezza 80 mg capsule 80 mg PO DAILY@0600 RF: 0 acetaminophen [Tylenol Arthritis Pain] 650 mg Tablet Extended Release 1,000 mg PO Q6H PRN (Reason: Pain) RF: 0 ondansetron HCl [Zofran] 4 mg tablet 4 mg PO QID PRN (Reason: nausea and vomiting) Qty: 14 RF: 0 prochlorperazine maleate 5 mg tablet 5 mg PO TID PRN (Reason: Nausea) RF: 0 pantoprazole 40 mg tablet,delayed release (DR/EC) 40 mg PO DAILY@0800 Qty: 30 RF: 0 hydroxyzine pamoate 50 mg capsule 50 mg PO QID PRN (Reason: Shortness Of Breath Or Wheezing) RF: 0 albuterol sulfate 90 mcg/actuation HFA aerosol inhaler 2 puff inhalation Q6H PRN (Reason: shortness of breath or wheezing) RF: 0 ipratropium-albuterol 0.5 mg-3 mg(2.5 mg base)/3 mL solution for nebulization 3 ml inhalation Q4H PRN (Reason: Shortness Of Breath Or Wheezing) RF: 0 Phenergan 25 mg WI BID PRN (Reason: Nausea And Vomiting) RF: 0 Discontinued venlafaxine 75 mg capsule,extended release 24hr 75 mg PO TID@08,13,21 Qty: 90 RF: 1 Discharge Orders: Discharge Order (Routine); Ordered 09/28/20 Ordered By: Odell Escobedo Discharge Diet: Usual diet Discharge Activity: Resume usual activity Discharge Attestations NPU Time Spent in Discharge Care*: greater than 30 min Status at Discharge: Cognitive status at discharge: cognitively intact , Behavioral status at discharge: cooperative , Functional status at discharge: independent ambulation Overall status at discharge: patient is back to baseline Coding Level of Care Code Acute Biological Science Aide for Shellie Fwd Diagnoses Chest pain R07.9 Esophageal stricture K22.2 Suicidal ideation R45.852
[2020-09-28 12:10] VITALS: PULSE 100; RESP 18; O2SAT 99
== END 2020-09-28 12:11 | disposition home or self-care (01) | DRG 885 ==
PROVIDERS: Hospitalist; Admitting Provider Psychiatry & Neurology Psychiatry; PCP Registered Nurse; Visit Provider Psychiatry & Neurology Psychiatry
DX: F25.0 Schizoaffective disorder, bipolar type (principal); R45.851 Suicidal ideations; F60.3 Borderline personality disorder; Z87.01 Personal history of pneumonia (recurrent); Z87.442 Personal history of urinary calculi; F41.9 Anxiety disorder, unspecified; G89.29 Other chronic pain; M54.9 Dorsalgia, unspecified; K29.50 Unspecified chronic gastritis without bleeding; K21.9 Gastro-esophageal reflux disease without esophagitis; N31.9 Neuromuscular dysfunction of bladder, unspecified; N39.41 Urge incontinence; F17.210 Nicotine dependence, cigarettes, uncomplicated; J44.9 Chronic obstructive pulmonary disease, unspecified; K22.2 Esophageal obstruction; R07.9 Chest pain, unspecified; Z79.51 Long term (current) use of inhaled steroids
CPT/HCPCS: 84484; 93005; 94640; J3535

== ENCOUNTER 2020-09-29 14:25 | Emergency (ER) | payer MEDICARE, MEDICAID, SELFPAY ==
[2020-09-29 14:36] VITALS: BP 122/81; PULSE 118; RESP 20; TEMP 36.8; O2SAT 91; BMI 33.3
[2020-09-29 16:23] LABS: Add Urine Microscopic? YES; Bilirubin Urine 1+ (Negative); Blood Urine 2+ (Negative); Glucose Urine UA Norm (Normal); Ketones Urine 1+ (Negative); Leukocyte Esterase Urine Negative (Negative); Nitrate Urine Negative (Negative); Protein Urine Neg (Negative); Specific Gravity, Urine 1.015 (1.005-1.030); Urine Appearance SL Hazy (CLEAR); Urine Color Yellow (Yellow); Urobilinogen Urine Norm (Negative); pH Urine 5 (5-7)
[2020-09-29 16:30] LABS: Add Urine Culture? No; Bacteria Urine 1+ /hpf; Squamous Epithelial Cell Urine 25-40 /hpf (0-5)
[2020-09-29] MEDS: sodium chloride 0.9% 1,000 ML 999 ML IV (16:34)
[2020-09-29 16:38] VITALS: PULSE 84; RESP 21; O2SAT 96
[2020-09-29 16:39] VITALS: BP 119/62
[2020-09-29 17:21] LABS: Basophils # 0.1 10^3/uL (0.0-0.1); Basophils % 0.6 %; Hematocrit 39.6 % (37.0-47.0); Hemoglobin 12.9 g/dL (11.5-15.3); Lymphocytes % 10.4 %; Mean Corpuscular HGB Conc 32.6 g/dL (30.0-36.0); Mean Corpuscular Hemoglobin 29.7 pg (28.0-34.0); Mean Corpuscular Volume 91.2 fL (81-99); Monocytes # 1.2 10^3/uL (0.2-0.9); Neutrophils # 16.04 10^3/uL (1.8-7.7); Neutrophils % 82.6 %; Nucleated Red Blood Cells % 0 %; Platelet Count 250 10^3/cmm (130-400); Red Blood Count 4.34 10^6/uL (4.1-5.3); White Blood Count 19.4 10^3/uL (4.0-10.0)
[2020-09-29 17:35] VITALS: BP 111/46; PULSE 107; RESP 14; O2SAT 94
[2020-09-29 17:50] LABS: Alanine Aminotransferase 11 U/L (0-33); Albumin Level 3.7 g/dL (3.5-5.2); Alkaline Phosphatase 117 IU/L (35-105); Anion Gap 12.1 (5-19); Aspartate Amino Transferase 18 U/L (0-32); Blood Urea Nitrogen 22 mg/dL (6-20); Calcium 8.2 mg/dL (8.5-10.5); Carbon Dioxide 23 mmol/L (22-29); Chloride 106 mmol/L (98-107); Globulin 2.2 g/dL (1.3-4.6); Glomerular Filtration Rate 75.3 mL/min (90-130); Glucose 109 mg/dL (65-115); Lipase 22 U/L (13-60); Osmolality Calculated 288 mOsm/kg (285-295); Potassium 4.1 mmol/L (3.5-5.1); Sodium 137 mmol/L (136-145); Total Bilirubin 0.3 mg/dL (0.15-1.2); Total Protein 5.9 g/dL (6.6-8.7)
[2020-09-29 17:51] LABS: Lactate (Lactic Acid level) 1.3 mmol/L (0.5-2.2)
[2020-09-29] MEDS: lidocaine 2% viscous 15 ML, aluminum-mag hydrox-simethicon 30 ML, sucralfate oral liq 1 GM PO (18:26)
[2020-09-29] MEDS: morphine 4 mg/mL SDV 1 mL IVP (18:37)
--- NOTE | 2020-09-29 18:39 | ED_ITS ---
HPI - Abdominal Pain General: Chief Complaint: Abdominal Pain Stated Complaint: GI PAIN, N/V, THROAT TIGHTNESS Time Seen by Provider: 09/29/20 15:12 Source: patient Mode of arrival: EMS Limitations: no limitations History of Present Illness: HPI narrative: Patient is a 55-year-old female patient who presents to the emergency department via EMS with complaints of abdominal pain and tightness in her throat. She states that she has a history of esophageal spasms/stenoses and has had multiple EGDs with dilations of her esophagus. She states that she is getting her feeling again, although she is still able to swallow. She has epigastric pain. She states that she called her delivery truck driver heavy at [place] and they advised her to come to the emergency department to be seen and possible transfer to [place]. MD elicited complaint: abdominal pain Onset (ago): hour(s) (2) Pain Consistency: constant Location: Epigastric Severity: severe Quality: cramping Radiation: none Migration to: no migration Exacerbating factors: nothing Relieving factors: nothing Associated Symptoms: Denies anorexia, belching, bloating, change in bowel habits, change in stool character, chills, coffee ground emesis, constipation, GI cramping, diarrhea, dyspepsia, dysuria, excessive flatus, fever(s), heartburn, hematochezia, hematuria, hematemesis, fecal incontinence, loose stools, melena, nausea, poor appetite, syncope and vomiting Related Data: Date of Last Menstrual Period: 06/19/95 Review of Systems General: Reports: 10 or more systems reviewed and unremarkable except in HPI and below Const: Denies: fever(s) or chills Card: Denies: syncope GI: Denies: nausea, vomiting, hematemesis, coffee ground emesis, heartburn, diarrhea, constipation, bloating, GI cramping, belching, excessive flatus, fecal incontinence, change in bowel habits, change in stool character, hematochezia or melena : Denies: dysuria or hematuria [facility] ED PFSH: Medical History (Reviewed 09/29/20 @ 21:47 by Elva Weston [place], [facility] Bladder stone Borderline personality disorder Chronic anxiety Chronic back pain greater than 3 months duration Chronic gastritis without bleeding Cystitis cystica Esophageal stricture Foreign body in bladder GERD without esophagitis Neurogenic bladder Restrictive lung disease Schizoaffective disorder, bipolar type Urgency incontinence Surgical History (Reviewed 09/29/20 @ 21:47 by Elva Weston [place], [facility] H/O colonoscopy with polypectomy H/O esophagogastroduodenoscopy (09/21/20) H/O: hysterectomy History of appendectomy History of breast biopsy History of foot surgery sx in 2009. Screws placed by Dr. Don. History of ureter stent Hx of cholecystectomy S/P bronchoscopy with biopsy Family History (Reviewed 09/29/20 @ 21:47 by Elva Weston MD, [facility] Mother No problems noted. Father No problems noted. Other Asthma Cancer Diabetes Heart disease Social History (Reviewed 09/29/20 @ 21:47 by Elva Weston MD, [facility] Smoking and tobacco status: current every day smoker cigarettes Years cigarettes smoked: 20 [ Other cigarette details: Hx of 1 PPD x 20 Years ] Quit status (tobacco): considering quitting Second hand smoke exposure: Yes Smoking risk assessment/counseling performed?: No Alcohol intake: never Counseling given: No Counseling given: No Lives independently: Yes Household members: spouse Marital status: Number of children: 3 Current occupational status: disabled History of recent travel: No Current gender identity: Female Female Reproductive History: Date of last menstrual period: 06/19/95 Physical Exam Const: COMMON NORMALS: no acute distress, average body habitus, patient oriented x3, no limitations, healthy appearing, alert and well nourished HENMT: COMMON NORMALS: normocephalic, atraumatic and moist oral mucous membranes HEAD & SCALP: normocephalic and atraumatic Neck/C-Spine: COMMON NORMALS: no meningeal signs and no JVD Resp: COMMON NORMALS: normal respiratory effort, No retractions, No use of accessory muscles, clear to auscultation bilaterally and percussion normal AUSCULTATION: clear to auscultation bilaterally PERCUSSION: percussion normal Cardio: COMMON NORMALS: no JVD, regular rate, regular rhythm, S1 normal heart sound present, S2 normal heart sound present, No gallops present (Cardio), No clicks present (Cardio), No murmurs present (Cardio), No rub (Cardio) and Peripheral pulses 2+ throughout RATE: regular rate RHYTHM: regular rhythm HEART SOUNDS: S1 normal heart sound present and S2 normal heart sound present PERIPHERAL PULSES: Peripheral pulses 2+ throughout GI: COMMON NORMALS: Normal to inspection, nondistended, normoactive bowel sounds present, Soft to palpation, No hepatosplenomegaly present, no masses and no bruits PALPATION: Yes Soft to palpation, Yes Tenderness to palpation present (GI) (epigastric) and Yes No hepatosplenomegaly present Extremity: COMMON NORMALS: normal to inspection, full ROM, capillary refill normal, no calf tenderness and no pedal edema Neuro: COMMON NORMALS: patient oriented x3 SENSORIUM/ORIENTATION: Yes alert MENINGEAL SIGNS: Yes no meningeal signs Course Reevaluation(s): Reevaluation #1: Discussed her lab and imaging findings with her as well as my conversation with the delivery truck driver heavy in [place]. We will discharge her home with no new orders, they will contact her in the morning to schedule an office visit. She voiced understanding and is in agreement with the plan. Time: 18:40 Consultations: Consultation #1: Discussed the patient with Dr. Deluna, delivery truck driver heavy who works with Dr. Loja the patient's delivery truck driver heavy in [place]. He advised that based on her clinical presentation there is no need for transfer to [place] or admission to the hospital. 2. Formation and they will contact her in the morning to schedule an office visit. Time: 18:32 Vital Signs: Vital signs: Vital Signs Temperature 98.3 F 09/29/20 14:36 Pulse Rate 94 09/29/20 18:51 Respiratory Rate 18 09/29/20 18:51 Blood Pressure 140/70 09/29/20 18:51 Pulse Oximetry 97 09/29/20 18:51 MDM - Abdominal Pain MDM Narrative: Medical decision making narrative: 54-year-old female with abdominal pain. She has a history of esophageal stenosis and has had some dilations. She feels her esophagus is getting tighter again and thinks she is due for another dilation. Contacted her delivery truck driver heavy and the doctor on- call advised that we discharge her home and will follow up in the office. We will contact her to schedule an appointment and evaluate her outpatient. Medical Records: Attestation: I reviewed the patient's medical records. Lab Data: Attestation: I reviewed the patient's lab results. Labs: Lab Results 09/29/20 09/29/20 09/29/20 Range/Units 16:00 16:25 16:25 WBC Cancelled Corrected WBC Cancelled RBC Cancelled Hgb Cancelled Hct Cancelled MCV Cancelled MCH Cancelled MCHC Cancelled RDW Cancelled Plt Count Cancelled MPV Cancelled Gran % Cancelled Neut % (Auto) Cancelled Lymph % (Auto) Cancelled Upton % (Auto) Cancelled Eos % (Auto) Cancelled Baso % (Auto) Cancelled Neut # (Auto) Cancelled Lymph # (Auto) Cancelled Upton # (Auto) Cancelled Eos # (Auto) Cancelled Baso # (Auto) Cancelled Absolute Gran (aut o) Cancelled Nucleated RBC % (a uto) Cancelled Nucleated RBCs # Cancelled Sodium Cancelled Potassium Cancelled Chloride Cancelled Carbon Dioxide Cancelled Anion Gap Cancelled BUN Cancelled Creatinine Cancelled GFR Calculation Cancelled Glucose Cancelled Calculated Osmolal ity Cancelled Lactate (0.5-2.2) mmol/L Calcium Cancelled Total Bilirubin Cancelled AST Cancelled ALT Cancelled Alkaline Phosphata se Cancelled Total Protein Cancelled Albumin Cancelled Globulin Cancelled Lipase Cancelled Urine Color Yellow (Yellow) Urine Appearance Sl hazy (CLEAR) Urine pH 5 (5-7) Ur Specific Gravit y 1.015 (1.005-1.030) Urine Protein Neg (Negative) Urine Glucose (UA) Norm (Normal) Urine Ketones 1+ H (Negative) Urine Blood 2+ H (Negative) Urine Nitrate Negative (Negative) Urine Bilirubin 1+ H (Negative) Urine Urobilinogen Norm (Negative) mg/dL Ur Leukocyte Stephanie ase Negative (Negative) Urine RBC None (0-2) /hpf Urine WBC 5-10 H (0-5) /hpf Ur Squamous Epith Cells 25-40 H (0-5) /hpf Amorphous Sediment Not Reportable Urine Bacteria 1+ H (NONE) /hpf 09/29/20 09/29/20 09/29/20 Range/Units 16:58 16:58 16:58 WBC 19.4 H Corrected WBC RBC 4.34 Hgb 12.9 Hct 39.6 MCV 91.2 MCH 29.7 MCHC 32.6 RDW 16.0 H Plt Count 250 MPV 10.0 Gran % Neut % (Auto) 82.6 Lymph % (Auto) 10.4 Upton % (Auto) 6.0 Eos % (Auto) 0.0 Baso % (Auto) 0.6 Neut # (Auto) 16.04 H Lymph # (Auto) 2.0 Upton # (Auto) 1.2 H Eos # (Auto) 0.0 Baso # (Auto) 0.1 Absolute Gran (aut o) Nucleated RBC % (a uto) 0 Nucleated RBCs # 0.0 Sodium 137 Potassium 4.1 Chloride 106 Carbon Dioxide 23 Anion Gap 12.1 BUN 22 H Creatinine 0.8 GFR Calculation 75.3 L Glucose 109 Calculated Osmolal ity 288 Lactate 1.3 (0.5-2.2) mmol/L Calcium 8.2 L Total Bilirubin 0.3 AST 18 ALT 11 Alkaline Phosphata se 117 H Total Protein 5.9 L Albumin 3.7 Globulin 2.2 Lipase 22 Urine Color (Yellow) Urine Appearance (CLEAR) Urine pH (5-7) Ur Specific Gravit y (1.005-1.030) Urine Protein (Negative) Urine Glucose (UA) (Normal) Urine Ketones (Negative) Urine Blood (Negative) Urine Nitrate (Negative) Urine Bilirubin (Negative) Urine Urobilinogen (Negative) mg/dL Ur Leukocyte Stephanie ase (Negative) Urine RBC (0-2) /hpf Urine WBC (0-5) /hpf Ur Squamous Epith Cells (0-5) /hpf Amorphous Sediment Urine Bacteria (NONE) /hpf Discharge Plan Discharge Patient Disposition: Home Clinical Impression: Abdominal pain Qualifiers: Abdominal location: epigastric Qualified Code(s): R10.13 - Epigastric pain Condition: Stable Prescriptions: Continued trazodone 300 mg tablet 300 mg PO BEDTIME@2100 Qty: 30 RF: 1 lorazepam 0.5 mg tablet 0.5 mg PO DAILY PRN (Reason: Anxiety) 30 Days Qty: 30 RF: 1 Benefiber Healthy Shape 5 gram/7.4 gram Powder 5 g PO BID@0600,1800 RF: 0 lamotrigine 200 mg tablet 200 mg PO DAILY@0600 RF: 0 buspirone 15 mg tablet 15 mg PO TID@0600,1200,1800 RF: 0 Breo Ellipta 100-25 mcg/dose blister with device 1 inh inhalation DAILY@0600 RF: 0 Ingrezza 80 mg capsule 80 mg PO DAILY@0600 RF: 0 acetaminophen [Tylenol Arthritis Pain] 650 mg Tablet Extended Release 1,000 mg PO Q6H PRN (Reason: Pain) RF: 0 ondansetron HCl [Zofran] 4 mg tablet 4 mg PO QID PRN (Reason: nausea and vomiting) Qty: 14 RF: 0 pantoprazole 40 mg tablet,delayed release (DR/EC) 40 mg PO DAILY@0800 Qty: 30 RF: 0 hydroxyzine pamoate 50 mg capsule 50 mg PO QID PRN (Reason: Shortness Of Breath Or Wheezing) RF: 0 albuterol sulfate 90 mcg/actuation HFA aerosol inhaler 2 puff inhalation Q6H PRN (Reason: shortness of breath or wheezing) RF: 0 ipratropium-albuterol 0.5 mg-3 mg(2.5 mg base)/3 mL solution for nebulization 3 ml inhalation Q4H PRN (Reason: Shortness Of Breath Or Wheezing) RF: 0 Phenergan 25 mg [place] BID PRN (Reason: Nausea And Vomiting) RF: 0 venlafaxine 75 mg capsule,extended release 24hr 75 mg PO TID@0600,1200,1800 RF: 0 methenamine hippurate 1 gram tablet 1 g PO BID@0600,1800 RF: 0 nlgyclkw-kjaodjg-eklj-lutein Tablet 1 tab PO DAILY@0600 RF: 0 trospium 20 mg tablet 20 mg PO BID@0600,1800 RF: 0 Discharge Orders: Discharge ED (Routine); Ordered 09/29/20 Ordered By: Elva Weston Referrals: Dara Tavera FNP [Primary Care Provider] - 1-3 days Discharge Diet: Usual diet Discharge Activity: Increase activity as tolerated Patient Instructions: Abdominal Pain (ED) Activity Restrictions/Additional Instructions: Return for any new or worsening symptoms. Follow-up with your primary care provider within 3 days. You will be contacted by the office of Dr. Loja your delivery truck driver heavy in [place], tomorrow to schedule an appointment for you to follow-up with him for your abdominal pain. Continue your home medications as prescribed. Coding Level of Care Code ED Psychological Examiner for Chg Fwd Exam Detailed
[2020-09-29 18:51] VITALS: BP 140/70; PULSE 94; RESP 18; O2SAT 97
== END 2020-09-29 18:52 | disposition home or self-care (01) ==
PROVIDERS: Emergency Provider Family Medicine; PCP Registered Nurse
DX: R10.13 Epigastric pain (principal); F17.210 Nicotine dependence, cigarettes, uncomplicated
CPT/HCPCS: 80053; 81001; 83605; 83690; 85025; 96361; 96374; 99283; J2270; J7030

== ENCOUNTER 2020-10-03 17:47 | Emergency (ER) | payer MEDICARE, MEDICAID, SELFPAY ==
[2020-10-03 17:47] VITALS: BP 108/76; PULSE 84; RESP 18; TEMP 36.6; O2SAT 95; BMI 33.3
--- NOTE | 2020-10-03 18:37 | ED_ITS ---
HPI - Abdominal Pain General: Chief Complaint: Abdominal Pain Stated Complaint: ABD PAIN Time Seen by Provider: 10/03/20 18:06 Source: patient and EMS Mode of arrival: EMS Limitations: no limitations History of Present Illness: HPI narrative: 54-year-old female has a history of chronic abdominal pain. Patient states she has been having cramping abdominal pain over the last 2 to 3 days. Patient states her pain currently is a 5 out of 10. She had no vomiting or diarrhea. Denies any worsening or improving factors. Patient is resting comfortably here. Associated Symptoms: Denies chills, dysuria and fever(s) Related Data: Date of Last Menstrual Period: 06/19/95 Review of Systems Const: Denies: fever(s), chills, body aches or change in appetite Eyes: Denies: blurry vision or eye discomfort ENMT: Denies: throat pain or dental pain Card: Denies: chest pain Resp: Denies: dyspnea GI: Reports: abdominal pain : Denies: dysuria Musc: Denies: neck pain or back pain Skin/Breast: Denies: rash Neuro: Denies: headache(s) Psych: Denies: depression Wilbur/Lymph: Denies: easy bruising All/Imm: Denies: urticaria PFSH ED PFSH: Medical History Bladder stone Borderline personality disorder Chronic anxiety Chronic back pain greater than 3 months duration Chronic gastritis without bleeding Cystitis cystica Esophageal stricture Foreign body in bladder GERD without esophagitis Neurogenic bladder Restrictive lung disease Schizoaffective disorder, bipolar type Urgency incontinence Surgical History H/O colonoscopy with polypectomy H/O esophagogastroduodenoscopy (09/21/20) H/O: hysterectomy History of appendectomy History of breast biopsy History of foot surgery sx in 2009. Screws placed by Dr. Don. History of ureter stent Hx of cholecystectomy S/P bronchoscopy with biopsy Family History Mother No problems noted. Father No problems noted. Other Asthma Cancer Diabetes Heart disease Social History Smoking and tobacco status: current every day smoker cigarettes Years cigarettes smoked: 20 [ Other cigarette details: Hx of 1 PPD x 20 Years ] Quit status (tobacco): considering quitting Second hand smoke exposure: Yes Smoking risk assessment/counseling performed?: No Alcohol intake: never Counseling given: No Counseling given: No Lives independently: Yes Household members: spouse Marital status: Number of children: 3 Current occupational status: disabled History of recent travel: No Current gender identity: Female Female Reproductive History: Date of last menstrual period: 06/19/95 Physical Exam Const: COMMON NORMALS: no acute distress, patient oriented x3 and healthy appearing HENMT: COMMON NORMALS: normocephalic and atraumatic HEAD & SCALP: normocephalic and atraumatic Eye: COMMON NORMALS: Equal, round and reactive pupils present and EOMs intact bilaterally PUPIL: Yes Equal, round and reactive pupils present Neck/C-Spine: COMMON NORMALS: full ROM and supple Chest: COMMONS NORMALS: normal inspection of the chest and normal palpation of entire chest wall Resp: COMMON NORMALS: normal respiratory effort, No retractions, No use of accessory muscles and clear to auscultation bilaterally AUSCULTATION: clear to auscultation bilaterally Cardio: COMMON NORMALS: regular rate, regular rhythm and No murmurs present (Cardio) RATE: regular rate RHYTHM: regular rhythm GI: COMMON NORMALS: Normal to inspection, nondistended, normoactive bowel sounds present, Soft to palpation, non-tender and no masses PALPATION: Yes Soft to palpation Extremity: COMMON NORMALS: normal to inspection and full ROM Neuro: COMMON NORMALS: patient oriented x3, moves all extremities and no focal motor deficits Psych: COMMON NORMALS: mental status grossly normal, Normal thought process present and cooperative THOUGHT PROCESS: Normal thought process present Skin: COMMON NORMALS: no rashes or lesions noted and no wounds GENERAL SKIN EXAM: no rashes or lesions noted Course Vital Signs: Vital signs: Vital Signs Temperature 97.8 F 10/03/20 17:47 Pulse Rate 82 10/03/20 20:57 Respiratory Rate 19 H 10/03/20 20:57 Blood Pressure 111/80 10/03/20 20:57 Pulse Oximetry 97 10/03/20 20:57 MDM - Abdominal Pain MDM Narrative: Medical decision making narrative: Patient presents for abdominal pain that is chronic in nature. Her abdominal exam here is benign and she feels much improved at discharge. Her white count and other blood work is all normal. She has no signs of acute surgical abdomen. She is to follow-up PCP and return if worsening. Lab Data: Labs: Lab Results 10/03/20 10/03/20 Range/Units 19:25 19:25 WBC 9.0 (4.0-10.0) 10^3/ uL RBC 4.04 L (4.1-5.3) 10^6/u L Hgb 12.2 (11.5-15.3) g/dL Hct 38.2 (37.0-47.0) % MCV 94.6 (81-99) fL MCH 30.2 (28.0-34.0) pg MCHC 31.9 (30.0-36.0) g/dL RDW 15.9 H (12.1-15.1) % Plt Count 244 (130-400) 10^3/c mm MPV 10.4 (7.4-10.4) fL Neut % (Auto) 59.9 % Lymph % (Auto) 27.8 % [place] % (Auto) 10.9 % Eos % (Auto) 0.0 % Baso % (Auto) 1.0 % Neut # (Auto) 5.39 (1.8-7.7) 10^3/u L Lymph # (Auto) 2.5 (0.8-4.8) 10^3/u L [place] # (Auto) 1.0 H (0.2-0.9) 10^3/u L Eos # (Auto) 0.0 (0.0-0.8) 10^3/u L Baso # (Auto) 0.1 (0.0-0.1) 10^3/u L Nucleated RBC % (a uto) 0 % Nucleated RBCs # 0.0 /100WBC Sodium 139 (136-145) mmol/L Potassium 3.8 (3.5-5.1) mmol/L Chloride 106 (98-107) mmol/L Carbon Dioxide 22 (22-29) mmol/L Anion Gap 14.8 (5-19) BUN 17 (6-20) mg/dL Creatinine 0.8 (0.5-0.9) mg/dL GFR Calculation 75.3 L (90-130) mL/min Glucose 102 (65-115) mg/dL Calculated Osmolal ity 290 (285-295) mOsm/k g Calcium 8.6 (8.5-10.5) mg/dL Total Bilirubin 0.2 (0.15-1.2) mg/dL AST 13 (0-32) U/L ALT 8 (0-33) U/L Alkaline Phosphata se 118 H (35-105) IU/L Total Protein 6.0 L (6.6-8.7) g/dL Albumin 3.7 (3.5-5.2) g/dL Globulin 2.3 (1.3-4.6) g/dL Lipase 25 (13-60) U/L Discharge Plan Discharge Patient Disposition: Home Clinical Impression: Abdominal pain Qualifiers: Abdominal location: generalized Qualified Code(s): R10.84 - Generalized abdominal pain Condition: Stable Prescriptions: No Action trazodone 300 mg tablet 300 mg PO BEDTIME@2100 Qty: 30 RF: 1 lorazepam 0.5 mg tablet 0.5 mg PO DAILY PRN (Reason: Anxiety) 30 Days Qty: 30 RF: 1 Benefiber Healthy Shape 5 gram/7.4 gram Powder 5 g PO BID@0600,1800 RF: 0 lamotrigine 200 mg tablet 200 mg PO DAILY@0600 RF: 0 buspirone 15 mg tablet 15 mg PO TID@0600,1200,1800 RF: 0 Breo Ellipta 100-25 mcg/dose blister with device 1 inh inhalation DAILY@0600 RF: 0 Ingrezza 80 mg capsule 80 mg PO DAILY@0600 RF: 0 acetaminophen [Tylenol Arthritis Pain] 650 mg Tablet Extended Release 1,000 mg PO Q6H PRN (Reason: Pain) RF: 0 ondansetron HCl [Zofran] 4 mg tablet 4 mg PO QID PRN (Reason: nausea and vomiting) Qty: 14 RF: 0 pantoprazole 40 mg tablet,delayed release (DR/EC) 40 mg PO DAILY@0800 Qty: 30 RF: 0 hydroxyzine pamoate 50 mg capsule 50 mg PO QID PRN (Reason: Shortness Of Breath Or Wheezing) RF: 0 albuterol sulfate 90 mcg/actuation HFA aerosol inhaler 2 puff inhalation Q6H PRN (Reason: shortness of breath or wheezing) RF: 0 ipratropium-albuterol 0.5 mg-3 mg(2.5 mg base)/3 mL solution for nebulization 3 ml inhalation Q4H PRN (Reason: Shortness Of Breath Or Wheezing) RF: 0 Phenergan 25 mg ND BID PRN (Reason: Nausea And Vomiting) RF: 0 venlafaxine 75 mg capsule,extended release 24hr 75 mg PO TID@0600,1200,1800 RF: 0 methenamine hippurate 1 gram tablet 1 g PO BID@0600,1800 RF: 0 gkowhyuw-jmftbsi-iubl-lutein Tablet 1 tab PO DAILY@0600 RF: 0 trospium 20 mg tablet 20 mg PO BID@0600,1800 RF: 0 Discharge Orders: Discharge ED (Routine); Ordered 10/03/20 Ordered By: Damien Urbina Referrals: Dara Tavera FNP [Primary Care Provider] - 1-3 days Discharge Diet: Advance as tolerated Discharge Activity: Resume usual activity Patient Instructions: Abdominal Pain (ED) Coding Level of Care Code ED [employer] for Chg Fwd Exam Comprehensive
[2020-10-03] MEDS: morphine 4 mg/mL SDV 1 mL IM (19:00)
[2020-10-03] MEDS: promethazine 25 mg/mL SDV 1 mL IM (19:02)
[2020-10-03 20:18] LABS: Basophils # 0.1 10^3/uL (0.0-0.1); Hematocrit 38.2 % (37.0-47.0); Hemoglobin 12.2 g/dL (11.5-15.3); Lymphocytes # 2.5 10^3/uL (0.8-4.8); Lymphocytes % 27.8 %; Mean Corpuscular HGB Conc 31.9 g/dL (30.0-36.0); Mean Corpuscular Hemoglobin 30.2 pg (28.0-34.0); Mean Corpuscular Volume 94.6 fL (81-99); Mean Platelet Volume 10.4 fL (7.4-10.4); Monocytes % 10.9 %; Neutrophils # 5.39 10^3/uL (1.8-7.7); Neutrophils % 59.9 %; Nucleated Red Blood Cells % 0 %; Platelet Count 244 10^3/cmm (130-400); Red Blood Count 4.04 10^6/uL (4.1-5.3); Red Cell Distribution Width 15.9 % (12.1-15.1)
[2020-10-03 20:33] LABS: Alanine Aminotransferase 8 U/L (0-33); Albumin Level 3.7 g/dL (3.5-5.2); Alkaline Phosphatase 118 IU/L (35-105); Anion Gap 14.8 (5-19); Aspartate Amino Transferase 13 U/L (0-32); Blood Urea Nitrogen 17 mg/dL (6-20); Calcium 8.6 mg/dL (8.5-10.5); Carbon Dioxide 22 mmol/L (22-29); Chloride 106 mmol/L (98-107); Globulin 2.3 g/dL (1.3-4.6); Glomerular Filtration Rate 75.3 mL/min (90-130); Glucose 102 mg/dL (65-115); Lipase 25 U/L (13-60); Osmolality Calculated 290 mOsm/kg (285-295); Potassium 3.8 mmol/L (3.5-5.1); Sodium 139 mmol/L (136-145); Total Bilirubin 0.2 mg/dL (0.15-1.2)
[2020-10-03] MEDS: HYDROmorphone 1 mg/mL INJ 1 mL IM (20:44)
[2020-10-03 20:57] VITALS: BP 111/80; PULSE 82; RESP 19; O2SAT 97
== END 2020-10-03 20:57 | disposition home or self-care (01) ==
PROVIDERS: Emergency Provider Emergency Medicine; PCP Registered Nurse
DX: R10.84 Generalized abdominal pain (principal); F17.210 Nicotine dependence, cigarettes, uncomplicated
CPT/HCPCS: 80053; 83690; 85025; 96372; 99283; J1170; J2270; J2550

== ENCOUNTER 2020-10-06 17:01 | Emergency (ER) | payer MEDICARE, MEDICAID, SELFPAY ==
[2020-10-06 18:04] VITALS: BP 117/50; PULSE 95; RESP 18; TEMP 36.9; O2SAT 96; BMI 33.3
--- NOTE | 2020-10-06 18:33 | W.ED.ABDPA2 ---
HPI - Abdominal Pain General: Chief Complaint: Abdominal Pain Stated Complaint: UPPER EPIGASTRIC PAIN Time Seen by Provider: 10/06/20 18:30 Source: patient Mode of arrival: ambulatory Limitations: no limitations History of Present Illness: HPI narrative: Patient is a 54-year-old female who presents to ED today with a complaint of upper abdominal pain. Patient has been seen here several times for almost identical symptoms. She tells me she has a history of esophageal strictures and has had her esophagus stretched multiple times over the past several months. She states she follows with a GI specialist at [facility] in [place]. She tells me she is having trouble swallowing and feels like her food is getting stuck. Patient had an EGD performed approximately [address] Montalvo for an impacted food bolus. Patient ended up having a large emesis prior to the EGD and dislodged the possible food bolus. EGD following this was normal. Patient was seen here on 09/29. Provider at that time contacted her GI specialist in [place] who said there was no reason to transfer patient. She was seen again on 10/03. She states she was seen at [facility] [place] yesterday. MD elicited complaint: abdominal pain Pertinent past history: other (esophageal stricture ) Location: Epigastric Radiation: none Migration to: no migration Exacerbating factors: eating Relieving factors: nothing Associated Symptoms: Reports nausea and vomiting; Denies chills, diarrhea, dysuria, fever(s), heartburn, hematemesis and syncope Related Data: Date of Last Menstrual Period: 06/19/95 Review of Systems Const: Denies: fever(s), chills, body aches, fatigue or malaise Eyes: Denies: change in vision or blurry vision ENMT: Denies: odynophagia, nasal discharge or nasal congestion Card: Denies: chest pain, palpitations, irregular heart rhythm, lightheadedness, syncope or dyspnea on exertion Resp: Denies: dyspnea, productive cough or pain on inspiration GI: Reports: abdominal pain, nausea and vomiting; Denies: hematemesis, heartburn or diarrhea : Denies: flank pain or dysuria Musc: Denies: neck pain, back pain or joint pain Skin/Breast: Denies: rash Neuro: Denies: headache(s) PFSH ED PFSH: Medical History Bladder stone Borderline personality disorder Chronic anxiety Chronic back pain greater than 3 months duration Chronic gastritis without bleeding Cystitis cystica Esophageal stricture Foreign body in bladder GERD without esophagitis Neurogenic bladder Restrictive lung disease Schizoaffective disorder, bipolar type Urgency incontinence Surgical History H/O colonoscopy with polypectomy H/O esophagogastroduodenoscopy (09/21/20) H/O: hysterectomy History of appendectomy History of breast biopsy History of foot surgery sx in 2009. Screws placed by Dr. Don. History of ureter stent Hx of cholecystectomy S/P bronchoscopy with biopsy Family History Mother No problems noted. Father No problems noted. Other Asthma Cancer Diabetes Heart disease Social History Smoking and tobacco status: current every day smoker cigarettes Years cigarettes smoked: 20 [ Other cigarette details: Hx of 1 PPD x 20 Years ] Quit status (tobacco): considering quitting Second hand smoke exposure: Yes Smoking risk assessment/counseling performed?: No Alcohol intake: never Counseling given: No Counseling given: No Lives independently: Yes Household members: spouse Marital status: Number of children: 3 Current occupational status: disabled History of recent travel: No Current gender identity: Female Female Reproductive History: Date of last menstrual period: 06/19/95 Physical Exam Const: COMMON NORMALS: no acute distress, patient oriented x3, no limitations and alert GENERAL APPEARANCE: cooperative ORIENTATION/CONSCIOUSNESS: Yes awake, Yes oriented to person, Yes oriented to place and Yes oriented to time HENMT: COMMON NORMALS: normocephalic and atraumatic HEAD & SCALP: normocephalic and atraumatic Chest: COMMONS NORMALS: normal inspection of the chest and normal palpation of entire chest wall Resp: COMMON NORMALS: normal respiratory effort and clear to auscultation bilaterally AUSCULTATION: clear to auscultation bilaterally Cardio: COMMON NORMALS: regular rate and regular rhythm RATE: regular rate RHYTHM: regular rhythm GI: COMMON NORMALS: Normal to inspection, nondistended, normoactive bowel sounds present, Soft to palpation, No hepatosplenomegaly present and no masses PALPATION: Yes Soft to palpation, Yes Tenderness to palpation present (GI) (epigastric) and Yes No hepatosplenomegaly present : COMMON NORMALS: Yes no CVA tenderness BLADDER/KIDNEY EXAM: Yes no CVA tenderness Back/Pelvis: COMMON NORMALS: no CVA tenderness Neuro: COMMON NORMALS: patient oriented x3 SENSORIUM/ORIENTATION: Yes alert, Yes oriented to person, Yes oriented to place and Yes oriented to time Skin: COMMON NORMALS: no rashes or lesions noted GENERAL SKIN EXAM: no rashes or lesions noted Course Vital Signs: Vital signs: Vital Signs Temperature 98.5 F 10/06/20 18:04 Pulse Rate 74 10/06/20 18:49 Respiratory Rate 16 10/06/20 20:14 Blood Pressure 104/55 10/06/20 18:49 Pulse Oximetry 94 10/06/20 18:49 MDM - Abdominal Pain MDM Narrative: Medical decision making narrative: Patient has chronic upper abdominal pain. ED provider spoke to her GI group in [place] approximately a week ago after she was here for identical symptoms and they did not recommend anything further other than follow-up in office. Work-up here is nonconcerning. She was able to hold down her GI cocktail without vomiting although stated this did not help with her pain. She had a recent EGD performed 2 weeks ago which was normal. Patient tells me she will try to get a ride to [place] tomorrow to meet with her GI specialist. I do not see any emergency today. Patient is stable for discharge. Lab Data: Labs: Lab Results 10/06/20 10/06/20 10/06/20 Range/Units 19:00 19:00 20:10 WBC 18.7 H (4.0-10.0) 10^3/ uL RBC 4.29 (4.1-5.3) 10^6/u L Hgb 13.0 (11.5-15.3) g/dL Hct 39.6 (37.0-47.0) % MCV 92.3 (81-99) fL MCH 30.3 (28.0-34.0) pg MCHC 32.8 (30.0-36.0) g/dL RDW 15.9 H (12.1-15.1) % Plt Count 257 (130-400) 10^3/c mm MPV 10.1 (7.4-10.4) fL Neut % (Auto) 79.3 % Lymph % (Auto) 12.4 % [place] % (Auto) 7.4 % Eos % (Auto) 0.0 % Baso % (Auto) 0.5 % Neut # (Auto) 14.79 H (1.8-7.7) 10^3/u L Lymph # (Auto) 2.3 (0.8-4.8) 10^3/u L [place] # (Auto) 1.4 H (0.2-0.9) 10^3/u L Eos # (Auto) 0.0 (0.0-0.8) 10^3/u L Baso # (Auto) 0.1 (0.0-0.1) 10^3/u L Nucleated RBC % (a uto) 0 % Nucleated RBCs # 0.0 /100WBC Sodium 139 (136-145) mmol/L Potassium 3.8 (3.5-5.1) mmol/L Chloride 104 (98-107) mmol/L Carbon Dioxide 24 (22-29) mmol/L Anion Gap 14.8 (5-19) BUN 12 (6-20) mg/dL Creatinine 0.9 (0.5-0.9) mg/dL GFR Calculation 65.8 L (90-130) mL/min Glucose 94 (65-115) mg/dL Calculated Osmolal ity 288 (285-295) mOsm/k g Calcium 8.5 (8.5-10.5) mg/dL Total Bilirubin 0.2 (0.15-1.2) mg/dL AST 12 (0-32) U/L ALT 10 (0-33) U/L Alkaline Phosphata se 122 H (35-105) IU/L Total Protein 6.1 L (6.6-8.7) g/dL Albumin 3.8 (3.5-5.2) g/dL Globulin 2.3 (1.3-4.6) g/dL Lipase 24 (13-60) U/L Urine Color Yellow (Yellow) Urine Appearance Clear (CLEAR) Urine pH 5 (5-7) Ur Specific Gravit y 1.015 (1.005-1.030) Urine Protein Neg (Negative) Urine Glucose (UA) Norm (Normal) Urine Ketones Negative (Negative) Urine Blood Neg (Negative) Urine Nitrate Negative (Negative) Urine Bilirubin Neg (Negative) Urine Urobilinogen Norm (Negative) mg/dL Ur Leukocyte Stephanie ase Negative (Negative) Discharge Plan Discharge Patient Disposition: Home Clinical Impression: Chronic upper abdominal pain Condition: Stable Prescriptions: No Action trazodone 300 mg tablet 300 mg PO BEDTIME@2100 Qty: 30 RF: 1 lorazepam 0.5 mg tablet 0.5 mg PO DAILY PRN (Reason: Anxiety) 30 Days Qty: 30 RF: 1 Benefiber Healthy Shape 5 gram/7.4 gram Powder 5 g PO BID@0600,1800 RF: 0 lamotrigine 200 mg tablet 200 mg PO DAILY@0600 RF: 0 buspirone 15 mg tablet 15 mg PO TID@0600,1200,1800 RF: 0 Breo Ellipta 100-25 mcg/dose blister with device 1 inh inhalation DAILY@0600 RF: 0 Ingrezza 80 mg capsule 80 mg PO DAILY@0600 RF: 0 acetaminophen [Tylenol Arthritis Pain] 650 mg Tablet Extended Release 1,000 mg PO Q6H PRN (Reason: Pain) RF: 0 ondansetron HCl [Zofran] 4 mg tablet 4 mg PO QID PRN (Reason: nausea and vomiting) Qty: 14 RF: 0 pantoprazole 40 mg tablet,delayed release (DR/EC) 40 mg PO DAILY@0800 Qty: 30 RF: 0 hydroxyzine pamoate 50 mg capsule 50 mg PO QID PRN (Reason: Shortness Of Breath Or Wheezing) RF: 0 albuterol sulfate 90 mcg/actuation HFA aerosol inhaler 2 puff inhalation Q6H PRN (Reason: shortness of breath or wheezing) RF: 0 ipratropium-albuterol 0.5 mg-3 mg(2.5 mg base)/3 mL solution for nebulization 3 ml inhalation Q4H PRN (Reason: Shortness Of Breath Or Wheezing) RF: 0 Phenergan 25 mg ND BID PRN (Reason: Nausea And Vomiting) RF: 0 venlafaxine 75 mg capsule,extended release 24hr 75 mg PO TID@0600,1200,1800 RF: 0 methenamine hippurate 1 gram tablet 1 g PO BID@0600,1800 RF: 0 sxuwdxus-pfczzxm-argu-lutein Tablet 1 tab PO DAILY@0600 RF: 0 trospium 20 mg tablet 20 mg PO BID@0600,1800 RF: 0 Discharge Orders: Discharge ED (Routine); Ordered 10/06/20 Ordered By: Shayla Jaquez Referrals: Dara Tavera, AMANDEEP [Primary Care Provider] - Patient Instructions: Abdominal Pain (ED), Opioid Safety Activity Restrictions/Additional Instructions: [facility] [place] is committed to fighting the nationwide opiate epidemic. We are providing ALL patients with information regarding opiate safety. If you received opiate pain medication during your stay or if you received a prescription for opiate pain medication-please review this handout. If not, you may disregard. Thank you. Coding Level of Care Code ED Change Lead for Shellie Fwfrank Exam Comprehensive
[2020-10-06 18:49] VITALS: BP 104/55; PULSE 74; RESP 16; O2SAT 94
[2020-10-06] MEDS: sodium chloride 0.9% 1,000 ML 999 ML IV (19:10)
[2020-10-06] MEDS: lidocaine 2% viscous 15 ML, aluminum-mag hydrox-simethicon 30 ML, sucralfate oral liq 1 GM PO (19:11)
[2020-10-06 19:26] LABS: Basophils # 0.1 10^3/uL (0.0-0.1); Basophils % 0.5 %; Hematocrit 39.6 % (37.0-47.0); Lymphocytes # 2.3 10^3/uL (0.8-4.8); Lymphocytes % 12.4 %; Mean Corpuscular HGB Conc 32.8 g/dL (30.0-36.0); Mean Corpuscular Hemoglobin 30.3 pg (28.0-34.0); Mean Corpuscular Volume 92.3 fL (81-99); Mean Platelet Volume 10.1 fL (7.4-10.4); Monocytes # 1.4 10^3/uL (0.2-0.9); Monocytes % 7.4 %; Neutrophils # 14.79 10^3/uL (1.8-7.7); Neutrophils % 79.3 %; Nucleated Red Blood Cells % 0 %; Platelet Count 257 10^3/cmm (130-400); Red Blood Count 4.29 10^6/uL (4.1-5.3); Red Cell Distribution Width 15.9 % (12.1-15.1); White Blood Count 18.7 10^3/uL (4.0-10.0)
[2020-10-06 19:56] LABS: Alanine Aminotransferase 10 U/L (0-33); Albumin Level 3.8 g/dL (3.5-5.2); Alkaline Phosphatase 122 IU/L (35-105); Anion Gap 14.8 (5-19); Aspartate Amino Transferase 12 U/L (0-32); Blood Urea Nitrogen 12 mg/dL (6-20); Calcium 8.5 mg/dL (8.5-10.5); Carbon Dioxide 24 mmol/L (22-29); Chloride 104 mmol/L (98-107); Globulin 2.3 g/dL (1.3-4.6); Glomerular Filtration Rate 65.8 mL/min (90-130); Glucose 94 mg/dL (65-115); Lipase 24 U/L (13-60); Osmolality Calculated 288 mOsm/kg (285-295); Potassium 3.8 mmol/L (3.5-5.1); Sodium 139 mmol/L (136-145); Total Bilirubin 0.2 mg/dL (0.15-1.2); Total Protein 6.1 g/dL (6.6-8.7)
[2020-10-06 20:14] VITALS: RESP 16
[2020-10-06] MEDS: morphine 4 mg/mL SDV 1 mL IVP (20:14)
[2020-10-06] MEDS: ondansetron 2 mg/ML SDV 2 mL 4 MG IVP (20:14)
[2020-10-06 20:22] LABS: Add Urine Microscopic? NO; Charge for UA Resulting for Rev
[2020-10-06 20:23] LABS: Bilirubin Urine Neg (Negative); Blood Urine Neg (Negative); Glucose Urine UA Norm (Normal); Ketones Urine Negative (Negative); Leukocyte Esterase Urine Negative (Negative); Nitrate Urine Negative (Negative); Protein Urine Neg (Negative); Specific Gravity, Urine 1.015 (1.005-1.030); Urine Appearance Clear (CLEAR); Urine Color Yellow (Yellow); Urobilinogen Urine Norm (Negative); pH Urine 5 (5-7)
== END 2020-10-06 20:41 | disposition home or self-care (01) ==
PROVIDERS: Emergency Provider Physician Assistant; PCP Registered Nurse
DX: G89.29 Other chronic pain (principal); R10.10 Upper abdominal pain, unspecified; F17.210 Nicotine dependence, cigarettes, uncomplicated
CPT/HCPCS: 36415; 80053; 81003; 83690; 85025; 96361; 96374; 96375; 99284; J2270; J2405; J7030

== ENCOUNTER 2020-10-14 18:17 | Emergency (ER) | payer MEDICARE, MEDICAID, SELFPAY ==
[2020-10-14 18:27] VITALS: BP 94/65; PULSE 96; RESP 20; TEMP 36.9; O2SAT 96; BMI 33.1
[2020-10-14 22:14] LABS: Add Urine Microscopic? NO; Charge for UA Resulting for Rev
[2020-10-14 22:19] LABS: Bilirubin Urine Neg (Negative); Blood Urine Neg (Negative); Glucose Urine UA Norm (Normal); Ketones Urine Negative (Negative); Leukocyte Esterase Urine Negative (Negative); Nitrate Urine Negative (Negative); Protein Urine Neg (Negative); Urine Appearance Clear (CLEAR); Urine Color Yellow (Yellow); Urobilinogen Urine Norm (Negative); pH Urine 5 (5-7)
[2020-10-14] MEDS: cyclobenzaprine 10 mg Tablet PO (22:45)
[2020-10-14] MEDS: predniSONE 20 mg Tablet PO (22:45)
--- NOTE | 2020-10-14 23:17 | ED_ITS ---
HPI - Female Genitourinary General: Chief complaint: Urogenital-Female Stated complaint: ABD PAIN Time Seen by Provider: 10/14/20 18:18 History of Present Illness: HPI Narrative: Patient states she has back pain. Has chronic back pain. Left sides been hurting worse today. No abdominal pain Denies recent injury MD elicited complaint: back pain Onset (ago): hour(s) Female Urogenital Radiation: L Flank Severity scale (1-10): 4 Quality of pain: sharp Consistency: constant Vaginal discharge: none Vaginal bleeding: none Associated symptoms: Reports no associated symptoms; Deny abdominal pain, headache(s) or nausea Sexual activity: No Patient : No Date of Last Menstrual Period: 06/19/95 Review of Systems Const: Denies: fever(s), chills or body aches Eyes: Denies: change in vision or blurry vision ENMT: Denies: throat pain or nasal congestion Card: Denies: chest pain or dyspnea on exertion Resp: Denies: dyspnea, productive cough or non-productive cough GI: Denies: abdominal pain, nausea or vomiting Musc: Reports: back pain; Denies: extremity pain Skin/Breast: Denies: rash Neuro: Denies: headache(s) Psych: Denies: anxiety or depression Wilbur/Lymph: Denies: easy bruising PFSH ED PFSH: Medical History (Reviewed 09/29/20 @ 21:47 by Elva Weston MD, [facility] [place] Bladder stone Borderline personality disorder Chronic anxiety Chronic back pain greater than 3 months duration Chronic gastritis without bleeding Cystitis cystica Esophageal stricture Foreign body in bladder GERD without esophagitis Neurogenic bladder Restrictive lung disease Schizoaffective disorder, bipolar type Urgency incontinence Surgical History (Reviewed 09/29/20 @ 21:47 by Elva Weston MD, [facility] [place] H/O colonoscopy with polypectomy H/O esophagogastroduodenoscopy (09/21/20) H/O: hysterectomy History of appendectomy History of breast biopsy History of foot surgery sx in 2009. Screws placed by Dr. Don. History of ureter stent Hx of cholecystectomy S/P bronchoscopy with biopsy Family History (Reviewed 09/29/20 @ 21:47 by Elva Weston MD, [facility] [place]) Mother No problems noted. Father No problems noted. Other Asthma Cancer Diabetes Heart disease Social History (Reviewed 09/29/20 @ 21:47 by Elva Weston MD, [facility] [place]) Smoking and tobacco status: current every day smoker cigarettes Years cigarettes smoked: 20 [ Other cigarette details: Hx of 1 PPD x 20 Years ] Quit status (tobacco): considering quitting Second hand smoke exposure: Yes Smoking risk assessment/counseling performed?: No Alcohol intake: never Counseling given: No Counseling given: No Lives independently: Yes Household members: spouse Marital status: Number of children: 3 Current occupational status: disabled History of recent travel: No Current gender identity: Female Female Reproductive History: Date of last menstrual period: 06/19/95 Physical Exam Const: COMMON NORMALS: no acute distress, average body habitus and patient oriented x3 HENMT: COMMON NORMALS: normocephalic HEAD & SCALP: normal to inspection and normocephalic FACE & SINUS: normal facial exam Eye: COMMON NORMALS: conjunctivae normal GENERAL EYE: appearance normal, both eyes and all related structures CONJUNCTIVA: Yes conjunctivae normal Neck/C-Spine: COMMON NORMALS: no JVD Chest: COMMONS NORMALS: normal inspection of the chest Resp: COMMON NORMALS: normal respiratory effort and clear to auscultation bilaterally AUSCULTATION: clear to auscultation bilaterally Cardio: COMMON NORMALS: no JVD, regular rate and regular rhythm RATE: regular rate RHYTHM: regular rhythm GI: COMMON NORMALS: Normal to inspection, nondistended, normoactive bowel sounds present : BLADDER/KIDNEY EXAM: Yes CVA tenderness on the left Back/Pelvis: COMMON NORMALS: thoracic and lumbar spine normal to inspection GENERAL BACK: Yes CVA tenderness LUMBAR SPINE/LOWER BACK: Yes straight leg raise positive left Straight leg raise positive details left: at 40 degrees Extremity: COMMON NORMALS: normal to inspection and full ROM Neuro: COMMON NORMALS: patient oriented x3 Course Vital Signs: Vital signs: Vital Signs Temperature 98.4 F 10/14/20 18:27 Pulse Rate 96 10/14/20 18:27 Respiratory Rate 20 H 10/14/20 18:27 Blood Pressure 94/65 10/14/20 18:27 Pulse Oximetry 96 10/14/20 18:27 MDM - Female Lab Data: Labs: Lab Results 10/14/20 Range/Units 20:50 Urine Color Yellow (Yellow) Urine Appearance Clear (CLEAR) Urine pH 5 (5-7) Ur Specific Gravit y 1.010 (1.005-1.030) Urine Protein Neg (Negative) Urine Glucose (UA) Norm (Normal) Urine Ketones Negative (Negative) Urine Blood Neg (Negative) Urine Nitrate Negative (Negative) Urine Bilirubin Neg (Negative) Urine Urobilinogen Norm (Negative) mg/dL Ur Leukocyte Stephanie ase Negative (Negative) Discharge Plan Discharge Patient Disposition: Home Clinical Impression: Back strain Qualifiers: Encounter type: initial encounter Qualified Code(s): S39.012A - Strain of muscle, fascia and tendon of lower back, initial encounter Condition: Stable Prescriptions: New prednisone 20 mg tablet 20 mg PO DAILY Qty: 7 RF: 0 cyclobenzaprine 5 mg tablet 5 mg PO TID PRN (Reason: muscle spasm) Qty: 10 RF: 0 No Action trazodone 300 mg tablet 300 mg PO BEDTIME@2100 Qty: 30 RF: 1 lorazepam 0.5 mg tablet 0.5 mg PO DAILY PRN (Reason: Anxiety) 30 Days Qty: 30 RF: 1 Benefiber Healthy Shape 5 gram/7.4 gram Powder 5 g PO BID@0600,1800 RF: 0 lamotrigine 200 mg tablet 200 mg PO DAILY@0600 RF: 0 buspirone 15 mg tablet 15 mg PO TID@0600,1200,1800 RF: 0 Breo Ellipta 100-25 mcg/dose blister with device 1 inh inhalation DAILY@0600 RF: 0 Ingrezza 80 mg capsule 80 mg PO DAILY@0600 RF: 0 acetaminophen [Tylenol Arthritis Pain] 650 mg Tablet Extended Release 1,000 mg PO Q6H PRN (Reason: Pain) RF: 0 ondansetron HCl [Zofran] 4 mg tablet 4 mg PO QID PRN (Reason: nausea and vomiting) Qty: 14 RF: 0 pantoprazole 40 mg tablet,delayed release (DR/EC) 40 mg PO DAILY@0800 Qty: 30 RF: 0 hydroxyzine pamoate 50 mg capsule 50 mg PO QID PRN (Reason: Shortness Of Breath Or Wheezing) RF: 0 albuterol sulfate 90 mcg/actuation HFA aerosol inhaler 2 puff inhalation Q6H PRN (Reason: shortness of breath or wheezing) RF: 0 ipratropium-albuterol 0.5 mg-3 mg(2.5 mg base)/3 mL solution for nebulization 3 ml inhalation Q4H PRN (Reason: Shortness Of Breath Or Wheezing) RF: 0 Phenergan 25 mg WA BID PRN (Reason: Nausea And Vomiting) RF: 0 venlafaxine 75 mg capsule,extended release 24hr 75 mg PO TID@0600,1200,1800 RF: 0 methenamine hippurate 1 gram tablet 1 g PO BID@0600,1800 RF: 0 ftocwmio-zgkqdwx-lrng-lutein Tablet 1 tab PO DAILY@0600 RF: 0 trospium 20 mg tablet 20 mg PO BID@0600,1800 RF: 0 Discharge Orders: Discharge ED (Routine); Ordered 10/14/20 Ordered By: David Guerin Referrals: Dara Tavera FNP [Primary Care Provider] - Discharge Diet: Usual diet Discharge Activity: Increase activity as tolerated Patient Instructions: Back Pain (ED) Activity Restrictions/Additional Instructions: Follow-up with medical provider as directed. Take medications as prescribed. Return to the ER or your medical provider if condition worsens. Please read and understand discharge instructions. If any questions ask please. No heavy lifting for next week 2. Can apply ice to the back area discomfort. Coding Level of Care Code ED Data Transcriber for Shellie Guallpa
== END 2020-10-14 22:49 | disposition home or self-care (01) ==
PROVIDERS: Emergency Medicine; Emergency Provider Nurse Practitioner Family; PCP Registered Nurse
DX: S39.012A Strain of muscle, fascia and tendon of lower back, initial encounter (principal); F17.210 Nicotine dependence, cigarettes, uncomplicated; X58.XXXA Exposure to other specified factors, initial encounter
CPT/HCPCS: 81003; 99283; J7512

== ENCOUNTER 2020-10-20 12:31 | Emergency (ER) | payer MEDICARE, MEDICAID, SELFPAY ==
[2020-10-20 12:32] VITALS: BP 146/92; PULSE 91; RESP 18; TEMP 37.2; O2SAT 98; BMI 33.1
--- NOTE | 2020-10-20 13:39 | ED_ITS ---
HPI - Psych General: Chief Complaint: Psychiatric Symptoms Stated Complaint: PSYCH EVAL Time Seen by Provider: 10/20/20 12:36 Source: patient and RN notes reviewed Limitations: no limitations History of Present Illness: HPI Narrative: 54-year-old female with a history of schizoaffective disorder, depression, borderline personality disorder, poor coping skills who presents with chief complaint of sadness and depression related to the fact that she has been estranged from her mother, father, and one of her daughters for about 15 years. With Mother's Day coming up this has exacerbated her underlying depression. Patient reports that her way of coping with this is to be suicidal. She reports she does not have any specific plan but could imagine herself doing anything. She has had overdoses in the past and has performed self cutting. Patient has recently been admitted for depression and suicidal ideations. Her medications were altered from venlafaxine to Lexapro. However, the patient states she was not discharged with a prescription of Lexapro. She has participated in 1 outpatient counseling session per her report since discharge. She denies any attempts at self-harm today. She report s her is supportive of her. complaint: suicidal ideation and feels depressed Associated symptoms: Reports depression and suicidal ideation; Deny delusions Review of Systems General: Reports: 10 or more systems reviewed and unremarkable except in HPI and below Const: Denies: fever(s), chills or body aches Eyes: Denies: change in vision ENMT: Denies: throat pain Card: Denies: chest pain, edema or syncope Resp: Reports: wheezing; Denies: dyspnea or productive cough GI: Reports: abdominal pain (Chronic, worse with anxiety, she suspects it is due to anxiety) and nausea (Comes along with anxiety); Denies: vomiting or diarrhea : Denies: flank pain, dysuria or urinary frequency Musc: Denies: neck pain, back pain, extremity pain or extremity swelling Skin/Breast: Denies: rash or erythema Neuro: Denies: headache(s), numbness in extremities, weakness in extremities, lack of coordination or difficulty walking Psych: Reports: anxiety, depression, difficulty concentrating and suicidal ideation PFS ED PFSH: Medical History (Reviewed 09/29/20 @ 21:47 by Elva Weston MD, [facility] [place]) Bladder stone Borderline personality disorder Chronic anxiety Chronic back pain greater than 3 months duration Chronic gastritis without bleeding Cystitis cystica Esophageal stricture Foreign body in bladder GERD without esophagitis Neurogenic bladder Restrictive lung disease Schizoaffective disorder, bipolar type Urgency incontinence Surgical History (Reviewed 09/29/20 @ 21:47 by Elva Weston MD, [facility] [place]) H/O colonoscopy with polypectomy H/O esophagogastroduodenoscopy (09/21/20) H/O: hysterectomy History of appendectomy History of breast biopsy History of foot surgery sx in 2009. Screws placed by Dr. Don. History of ureter stent Hx of cholecystectomy S/P bronchoscopy with biopsy Family History (Reviewed 09/29/20 @ 21:47 by Elva Weston MD, [facility] [place]) Mother No problems noted. Father No problems noted. Other Asthma Cancer Diabetes Heart disease Social History (Reviewed 09/29/20 @ 21:47 by Elva Weston MD, [facility] [place]) Smoking and tobacco status: current every day smoker cigarettes Years cigarettes smoked: 20 [ Other cigarette details: Hx of 1 PPD x 20 Years ] Quit status (tobacco): considering quitting Second hand smoke exposure: Yes Smoking risk assessment/counseling performed?: No Alcohol intake: never Counseling given: No Counseling given: No Lives independently: Yes Household members: spouse Marital status: Number of children: 3 Current occupational status: disabled History of recent travel: No Current gender identity: Female Female Reproductive History: Date of last menstrual period: 06/19/95 Physical Exam Const: COMMON NORMALS: no limitations, alert and well nourished EXAM LIMITATIONS: no altered mental status GENERAL APPEARANCE: cooperative, well kempt and well developed ORIENTATION/CONSCIOUSNESS: Yes awake; not confused HENMT: COMMON NORMALS: normocephalic, atraumatic, external ears normal and Normal external nose present HEAD & SCALP: normal to inspection, normocephalic and atraumatic FACE & SINUS: face symmetric NOSE: Normal external nose present EXTERNAL EAR: Yes external ears normal MOUTH: lip normal; no muffled voice Eye: COMMON NORMALS: EOMs intact bilaterally and conjunctivae normal GENERAL EYE: appearance normal, both eyes and all related structures CONJUNCTIVA: Yes conjunctivae normal Neck/C-Spine: COMMON NORMALS: no JVD GENERAL: Yes normal visual inspection and Yes trachea midline Resp: COMMON NORMALS: normal respiratory effort and No use of accessory muscles EFFORT & INSPECTION: Yes able to speak in complete sentences, Yes symmetric chest movement and Yes audible wheezes AUSCULTATION: wheezes Cardio: COMMON NORMALS: no JVD, regular rate and regular rhythm RATE: regular rate RHYTHM: regular rhythm PERIPHERAL PULSES: radial pulses present GI: COMMON NORMALS: Soft to palpation INSPECTION: Yes normal to inspection PALPATION: Yes Soft to palpation, No Tenderness to palpation present (GI) and No Guarding due to palpation present (GI) Back/Pelvis: COMMON NORMALS: thoraco-lumbar ROM normal Extremity: COMMON NORMALS: normal to inspection GENERAL: Yes normal exam except as noted Neuro: COMMON NORMALS: moves all extremities, no focal motor deficits and no sensory deficits noted SENSORIUM/ORIENTATION: Yes alert Psych: COMMON NORMALS: mental status grossly normal, Normal thought process present, cooperative, speech normal and activity/motor behavior normal APPEARANCE: Yes well kempt ATTITUDE: Yes calm ACTIVITY/MOTOR BEHAVIOR: Yes appropriate eye contact, No psychomotor agitation, No psychomotor slowing and No fidgeting SPEECH: Yes normal speech MOOD & AFFECT: Yes depressed mood and Yes fearful THOUGHT PROCESS: Normal thought process present, not circumstantial, No incoherent, No disorganized, No confused, not confabulating, normal association, not perseverating and not tangential THOUGHT CONTENT: Yes Suicidality present (Vague suicidal ideations), No Homicidality present, No Phobia(s) present, No delusions, No Hallucination(s) present, No Ideas of reference present (thought content), No Derealization present, No Deperso nalization present and No Compulsions present (thought content) ATTENTION/CONCENTRATION: Yes attention grossly intact MEMORY/COGNITION: Yes memory grossly intact and Yes cognition grossly intact INSIGHT: Fair insight present (Psych) JUDGEMENT: Limited judgement present (Psych) Skin: COMMON NORMALS: no rashes or lesions noted, turgor normal and no jaundice GENERAL SKIN EXAM: no rashes or lesions noted and turgor normal Course ED course: Dr Castellanos consulted. He did come see patient and after his evaluation. He has deemed her risk of suicide low. She has a f/u with her counselor this Monday and psychiatrist this Monday. He has cleared her for outpatient treatment. He does recommend starting Lexapro 10mg daily and have Psychiatrist discuss weaning off venlafaxine on Monday. Labs reviewed and no emergent condition. Abd pain is vague and seems to be a somatic complaint of anxiety. Vital Signs: Vital signs: Vital Signs Temperature 98.9 F 10/20/20 12:32 Pulse Rate 91 10/20/20 12:32 Respiratory Rate 18 10/20/20 12:32 Blood Pressure 146/92 10/20/20 12:32 Pulse Oximetry 98 10/20/20 12:32 MDM - Psych MDM Narrative: Medical decision making narrative: 54-year-old female with a history of psychiatric illness as described who presents with vague suicidal ideations related to depression about her family and personal relationships. I have discussed this case with Dr. Castellanos. He is going to come down and see the patient and determine whether she can continue outpatient or whether her risk of suicide is deemed high enough that she will require admission. Lab Data: Labs: Lab Results 10/20/20 10/20/20 10/20/20 Range/Units 13:17 14:30 14:30 WBC 16.8 H (4.0-10.0) 10^3/ uL RBC 4.33 (4.1-5.3) 10^6/u L Hgb 13.1 (11.5-15.3) g/dL Hct 40.9 (37.0-47.0) % MCV 94.5 (81-99) fL MCH 30.3 (28.0-34.0) pg MCHC 32.0 (30.0-36.0) g/dL RDW 15.7 H (12.1-15.1) % Plt Count 242 (130-400) 10^3/c mm MPV 10.1 (7.4-10.4) fL Neut % (Auto) 71.7 % Lymph % (Auto) 16.8 % [place] % (Auto) 5.8 % Eos % (Auto) 4.6 % Baso % (Auto) 0.7 % Neut # (Auto) 12.06 H (1.8-7.7) 10^3/u L Lymph # (Auto) 2.8 (0.8-4.8) 10^3/u L [place] # (Auto) 1.0 H (0.2-0.9) 10^3/u L Eos # (Auto) 0.8 (0.0-0.8) 10^3/u L Baso # (Auto) 0.1 (0.0-0.1) 10^3/u L Nucleated RBC % (a uto) 0 % Nucleated RBCs # 0.0 /100WBC Sodium 137 (136-145) mmol/L Potassium 3.8 (3.5-5.1) mmol/L Chloride 106 (98-107) mmol/L Carbon Dioxide 21 L (22-29) mmol/L Anion Gap 13.8 (5-19) BUN 15 (6-20) mg/dL Creatinine 0.8 (0.5-0.9) mg/dL GFR Calculation 75.3 L (90-130) mL/min Glucose 91 (65-115) mg/dL Calculated Osmolal ity 284 L (285-295) mOsm/k g Calcium 8.7 (8.5-10.5) mg/dL Total Bilirubin 0.2 (0.15-1.2) mg/dL AST 10 (0-32) U/L ALT 6 (0-33) U/L Alkaline Phosphata se 113 H (35-105) IU/L Total Protein 5.8 L (6.6-8.7) g/dL Albumin 3.7 (3.5-5.2) g/dL Globulin 2.1 (1.3-4.6) g/dL Urine Color Straw (Yellow) Urine Appearance Clear (CLEAR) Urine pH 5 (5-7) Ur Specific Gravit y 1.005 (1.005-1.030) Urine Protein Neg (Negative) Urine Glucose (UA) Norm (Normal) Urine Ketones Negative (Negative) Urine Blood Neg (Negative) Urine Nitrate Negative (Negative) Urine Bilirubin Neg (Negative) Urine Urobilinogen Norm (Negative) mg/dL Ur Leukocyte Stephanie ase Negative (Negative) Discharge Plan Discharge Patient Disposition: Home Clinical Impression: Chronic anxiety, Adjustment disorder with depressed mood, Suicidal ideation Condition: Stable Prescriptions: New escitalopram oxalate 10 mg tablet 10 mg PO DAILY Qty: 30 RF: 0 Discontinued cyclobenzaprine 5 mg tablet 5 mg PO TID PRN (Reason: muscle spasm) Qty: 10 RF: 0 No Action trazodone 300 mg tablet 300 mg PO BEDTIME@2100 Qty: 30 RF: 1 lorazepam 0.5 mg tablet 0.5 mg PO DAILY PRN (Reason: Anxiety) 30 Days Qty: 30 RF: 1 buspirone 15 mg tablet 15 mg PO TID@0600,1200,1800 Qty: 90 RF: 2 Benefiber Healthy Shape 5 gram/7.4 gram Powder 5 g PO BID@0600,1800 RF: 0 lamotrigine 200 mg tablet 200 mg PO DAILY@0600 RF: 0 Breo Ellipta 100-25 mcg/dose blister with device 1 inh inhalation DAILY@0600 RF: 0 Ingrezza 80 mg capsule 80 mg PO DAILY@0600 RF: 0 Vitamin C 1,000 mg Tablet 1,000 mg PO BID@0600,1800 RF: 0 acetaminophen [Tylenol Arthritis Pain] 650 mg Tablet Extended Release 1,000 mg PO Q6H PRN (Reason: Pain) RF: 0 ondansetron HCl [Zofran] 4 mg tablet 4 mg PO QID PRN (Reason: nausea and vomiting) Qty: 14 RF: 0 pantoprazole 40 mg tablet,delayed release (DR/EC) 40 mg PO DAILY@0800 Qty: 30 RF: 0 hydroxyzine pamoate 50 mg capsule 50 mg PO QID PRN (Reason: Anxiety) RF: 0 albuterol sulfate 90 mcg/actuation HFA aerosol inhaler 2 puff inhalation Q6H PRN (Reason: shortness of breath or wheezing) RF: 0 ipratropium-albuterol 0.5 mg-3 mg(2.5 mg base)/3 mL solution for nebulization 3 ml inhalation Q4H PRN (Reason: Shortness Of Breath Or Wheezing) RF: 0 venlafaxine 75 mg capsule,extended release 24hr 75 mg PO TID@0600,1200,1800 RF: 0 methenamine hippurate 1 gram tablet 1 g PO BID@0600,1800 RF: 0 cwshmhhu-dpacbul-bptp-lutein Tablet 1 tab PO DAILY@0600 RF: 0 trospium 20 mg tablet 20 mg PO BID@0600,1800 RF: 0 Discharge Orders: Discharge ED (Routine); Ordered 10/20/20 Ordered By: Raf Genao Referrals: Daar Tavera FNP [Primary Care Provider] - Discharge Diet: Usual diet Discharge Activity: Resume usual activity Patient Instructions: Suicide Prevention for Adults (ED), Anxiety (ED), Opioid Safety, Suicidal Ideation Activity Restrictions/Additional Instructions: 1.) Start taking Lexapro. Talk with your psychiatrist on Monday about stopping or tapering off venlafaxine. 2.) Return to the ER if you are having organized plan of suicide or hurting yourself. 3. Keep your appointment on Monday to work on your coping, anxiety, and depression with your counselor. Coding Level of Care Code ED Tensioning Machine Operator for Shellie Fwd Exam Comprehensive
[2020-10-20 14:16] LABS: Add Urine Microscopic? NO; Charge for UA Resulting for Rev
[2020-10-20 14:20] LABS: Bilirubin Urine Neg (Negative); Blood Urine Neg (Negative); Glucose Urine UA Norm (Normal); Ketones Urine Negative (Negative); Leukocyte Esterase Urine Negative (Negative); Nitrate Urine Negative (Negative); Protein Urine Neg (Negative); Specific Gravity, Urine 1.005 (1.005-1.030); Urine Appearance Clear (CLEAR); Urine Color Straw (Yellow); Urobilinogen Urine Norm (Negative); pH Urine 5 (5-7)
[2020-10-20] MEDS: LORazepam 1 mg Tablet PO (14:25)
[2020-10-20 14:46] LABS: Basophils # 0.1 10^3/uL (0.0-0.1); Basophils % 0.7 %; Eosinophils # 0.8 10^3/uL (0.0-0.8); Eosinophils % 4.6 %; Hematocrit 40.9 % (37.0-47.0); Hemoglobin 13.1 g/dL (11.5-15.3); Lymphocytes # 2.8 10^3/uL (0.8-4.8); Lymphocytes % 16.8 %; Mean Corpuscular Hemoglobin 30.3 pg (28.0-34.0); Mean Corpuscular Volume 94.5 fL (81-99); Mean Platelet Volume 10.1 fL (7.4-10.4); Monocytes % 5.8 %; Neutrophils # 12.06 10^3/uL (1.8-7.7); Neutrophils % 71.7 %; Nucleated Red Blood Cells % 0 %; Platelet Count 242 10^3/cmm (130-400); Red Blood Count 4.33 10^6/uL (4.1-5.3); Red Cell Distribution Width 15.7 % (12.1-15.1); White Blood Count 16.8 10^3/uL (4.0-10.0)
[2020-10-20 15:01] LABS: Alanine Aminotransferase 6 U/L (0-33); Albumin Level 3.7 g/dL (3.5-5.2); Alkaline Phosphatase 113 IU/L (35-105); Aspartate Amino Transferase 10 U/L (0-32); Blood Urea Nitrogen 15 mg/dL (6-20); Calcium 8.7 mg/dL (8.5-10.5); Carbon Dioxide 21 mmol/L (22-29); Chloride 106 mmol/L (98-107); Globulin 2.1 g/dL (1.3-4.6); Glomerular Filtration Rate 75.3 mL/min (90-130); Glucose 91 mg/dL (65-115); Osmolality Calculated 284 mOsm/kg (285-295); Sodium 137 mmol/L (136-145); Total Bilirubin 0.2 mg/dL (0.15-1.2); Total Protein 5.8 g/dL (6.6-8.7)
[2020-10-20 15:06] LABS: Anion Gap 13.8 (5-19); Potassium 3.8 mmol/L (3.5-5.1)
[2020-10-20] MEDS: OLANZapine 5 mg ODT PO (15:29)
[2020-10-20 15:33] VITALS: BP 139/87; PULSE 82; RESP 18; O2SAT 98
== END 2020-10-20 15:46 | disposition home or self-care (01) ==
PROVIDERS: Emergency Provider Emergency Medicine; PCP Registered Nurse
DX: R45.851 Suicidal ideations (principal); F43.23 Adjustment disorder with mixed anxiety and depressed mood; F17.210 Nicotine dependence, cigarettes, uncomplicated
CPT/HCPCS: 36415; 80053; 81003; 85025; 99283

== ENCOUNTER 2020-10-20 15:47 | Emergency (ER) | payer MEDICARE, MEDICAID, SELFPAY ==
[2020-10-20 15:55] VITALS: BP 143/71; PULSE 95; RESP 18; TEMP 37.2; O2SAT 97; BMI 33.1
[2020-10-20 16:16] VITALS: BP 143/69; PULSE 80; RESP 16; O2SAT 98
--- NOTE | 2020-10-20 16:35 | W.ED.RECABL ---
HPI - Recheck/Abnormal Lab/Rx General: Chief Complaint: Recheck/Abnormal Lab/Rx Stated Complaint: UPPER AB PAIN Time Seen by Provider: 10/20/20 15:58 History of Present Illness: HPI narrative: Patient presents to the ER with upper epigastric pain after just being discharged approximately less than a minute ago. Patient states that her abdominal pain continues to bother. Patient is well-known to me and she has had this type of pain for many many years. She does see a GI specialist and she has an appointment next week to see him. She presently has no medication she says is working to help control her gastric reflux. Associated symptoms: none Review of Systems Const: Denies: fever(s) or chills GI: Reports: abdominal pain and heartburn; Denies: coffee ground emesis, dysphagia or change in bowel habits Psych: Reports: anxiety and depression PFSH ED PFSH: Medical History (Reviewed 09/29/20 @ 21:47 by Elva Weston MD, [facility] [place] Bladder stone Borderline personality disorder Chronic anxiety Chronic back pain greater than 3 months duration Chronic gastritis without bleeding Cystitis cystica Esophageal stricture Foreign body in bladder GERD without esophagitis Neurogenic bladder Restrictive lung disease Schizoaffective disorder, bipolar type Urgency incontinence Surgical History (Reviewed 09/29/20 @ 21:47 by Elva Weston MD, [facility] [place]) H/O colonoscopy with polypectomy H/O esophagogastroduodenoscopy (09/21/20) H/O: hysterectomy History of appendectomy History of breast biopsy History of foot surgery sx in 2009. Screws placed by Dr. Don. History of ureter stent Hx of cholecystectomy S/P bronchoscopy with biopsy Family History (Reviewed 09/29/20 @ 21:47 by Elva Weston MD, [facility] [place]) Mother No problems noted. Father No problems noted. Other Asthma Cancer Diabetes Heart disease Social History (Reviewed 09/29/20 @ 21:47 by Elva Weston MD, [facility] [place]) Smoking and tobacco status: current every day smoker cigarettes Years cigarettes smoked: 20 [ Other cigarette details: Hx of 1 PPD x 20 Years ] Quit status (tobacco): considering quitting Second hand smoke exposure: Yes Smoking risk assessment/counseling performed?: No Alcohol intake: never Counseling given: No Counseling given: No Lives independently: Yes Household members: spouse Marital status: Number of children: 3 Current occupational status: disabled History of recent travel: No Current gender identity: Female Female Reproductive History: Date of last menstrual period: 06/19/95 Physical Exam Const: COMMON NORMALS: no acute distress, average body habitus and patient oriented x3 HENMT: COMMON NORMALS: normocephalic HEAD & SCALP: normal to inspection and normocephalic FACE & SINUS: normal facial exam Eye: COMMON NORMALS: conjunctivae normal GENERAL EYE: appearance normal, both eyes and all related structures CONJUNCTIVA: Yes conjunctivae normal Neck/C-Spine: COMMON NORMALS: no JVD Chest: COMMONS NORMALS: normal inspection of the chest Resp: COMMON NORMALS: normal respiratory effort and clear to auscultation bilaterally AUSCULTATION: clear to auscultation bilaterally Cardio: COMMON NORMALS: no JVD, regular rate and regular rhythm RATE: regular rate RHYTHM: regular rhythm GI: INSPECTION: Yes normal to inspection AUSCULTATION: Yes normoactive bowel sounds PALPATION: Yes Tenderness to palpation present (GI) (Upper epigastric area) Extremity: COMMON NORMALS: normal to inspection and full ROM Neuro: COMMON NORMALS: patient oriented x3 Course Vital Signs: Vital signs: Vital Signs Temperature 98.9 F 10/20/20 15:55 Pulse Rate 80 10/20/20 16:16 Respiratory Rate 16 10/20/20 16:16 Blood Pressure 143/69 10/20/20 16:16 Pulse Oximetry 98 10/20/20 16:16 Discharge Plan Discharge Patient Disposition: Home Clinical Impression: Acid reflux Qualifiers: Esophagitis presence: esophagitis presence not specified Qualified Code(s): K21.9 - Gastro-esophageal reflux disease without esophagitis Condition: Stable Prescriptions: New 16.2 mg-0.1037 mg/5 mL (5 mL) elixir 10 ml PO BID Qty: 50 RF: 0 No Action trazodone 300 mg tablet 300 mg PO BEDTIME@2100 Qty: 30 RF: 1 lorazepam 0.5 mg tablet 0.5 mg PO DAILY PRN (Reason: Anxiety) 30 Days Qty: 30 RF: 1 buspirone 15 mg tablet 15 mg PO TID@0600,1200,1800 Qty: 90 RF: 2 Benefiber Healthy Shape 5 gram/7.4 gram Powder 5 g PO BID@0600,1800 RF: 0 lamotrigine 200 mg tablet 200 mg PO DAILY@0600 RF: 0 Breo Ellipta 100-25 mcg/dose blister with device 1 inh inhalation DAILY@0600 RF: 0 Ingrezza 80 mg capsule 80 mg PO DAILY@0600 RF: 0 ascorbic acid (vitamin C) [Vitamin C] 1,000 mg Tablet 1,000 mg PO BID@0600,1800 RF: 0 escitalopram oxalate 10 mg tablet 10 mg PO DAILY Qty: 30 RF: 0 acetaminophen [Tylenol Arthritis Pain] 650 mg Tablet Extended Release 1,000 mg PO Q6H PRN (Reason: Pain) RF: 0 ondansetron HCl [Zofran] 4 mg tablet 4 mg PO QID PRN (Reason: nausea and vomiting) Qty: 14 RF: 0 pantoprazole 40 mg tablet,delayed release (DR/EC) 40 mg PO DAILY@0800 Qty: 30 RF: 0 hydroxyzine pamoate 50 mg capsule 50 mg PO QID PRN (Reason: Anxiety) RF: 0 albuterol sulfate 90 mcg/actuation HFA aerosol inhaler 2 puff inhalation Q6H PRN (Reason: shortness of breath or wheezing) RF: 0 ipratropium-albuterol 0.5 mg-3 mg(2.5 mg base)/3 mL solution for nebulization 3 ml inhalation Q4H PRN (Reason: Shortness Of Breath Or Wheezing) RF: 0 venlafaxine 75 mg capsule,extended release 24hr 75 mg PO TID@0600,1200,1800 RF: 0 methenamine hippurate 1 gram tablet 1 g PO BID@0600,1800 RF: 0 iztjfvbe-tjwzomv-mtdm-lutein Tablet 1 tab PO DAILY@0600 RF: 0 trospium 20 mg tablet 20 mg PO BID@0600,1800 RF: 0 Discharge Orders: Discharge ED (Routine); Ordered 10/20/20 Ordered By: David Guerin Referrals: Dara Tavera FNP [Primary Care Provider] - Discharge Diet: As Directed Discharge Activity: Increase activity as tolerated Patient Instructions: Gastroesophageal Reflux Disease (ED) Activity Restrictions/Additional Instructions: Follow-up with medical provider as directed. Take medications as prescribed. Return to the ER or your medical provider if condition worsens. Please read and understand discharge instructions. If any questions ask please. Keep appointment with specialist next week Coding Level of Care Code ED Service Order Expediter for Shellie Guallpa
== END 2020-10-20 16:22 | disposition home or self-care (01) ==
PROVIDERS: Emergency Provider Nurse Practitioner Family; PCP Registered Nurse
DX: K21.9 Gastro-esophageal reflux disease without esophagitis (principal); F17.210 Nicotine dependence, cigarettes, uncomplicated
CPT/HCPCS: 99282

== ENCOUNTER 2020-10-25 15:28 | Emergency (ER) | payer MEDICARE, MEDICAID, SELFPAY ==
[2020-10-25] VITALS (7 sets, daily range): BP systolic 109–159; BP diastolic 63–90; PULSE 16–84; RESP 14–18; TEMP 37.1; O2SAT 93–99; BMI 33.1
--- NOTE | 2020-10-25 16:09 | XRR_ITS ---
PROCEDURE INFORMATION: Exam: XR Chest Exam date and time: 10/25/2020 4:11 PM Age: 54 years old Clinical indication: Chest pain TECHNIQUE: Imaging protocol: XR of the chest. Views: 1 view. COMPARISON: CR XR chest 1V portable [id number] 09/09/2020 4:55 PM FINDINGS: Lungs: Unremarkable. No consolidation. Pleural spaces: Unremarkable. No pleural effusion. No pneumothorax. Heart/Mediastinum: Unremarkable. No cardiomegaly. Bones/joints: Unremarkable. XR/XR chest 1V portable [id number] IMPRESSION: No acute findings.
--- NOTE | 2020-10-25 16:13 | ED_ITS ---
HPI - Chest Pain General: Chief Complaint: Chest Pain Stated Complaint: CHEST PAIN Time Seen by Provider: 10/25/20 16:01 Source: patient Mode of arrival: EMS Limitations: no limitations History of Present Illness: HPI narrative: Latesha is a very nice 54-year-old female who comes in complaining of chest pain. She states the pain began about 3 hours ago while she was doing mild/light activity in her house. She has associated shortness of breath and states that when she takes deep breath or coughs her pain is much worse. The pain should has a dry cough and she can hear herself wheezing at times. She also states that if she moves in different positions it makes her pain worse. She denies any diaphoresis and she does not have any radiation of her pain. She denies any vomiting but has been nauseated. Patient has a history of lung problems but denies any history of coronary artery disease. Patient is unaware of anything else that makes her symptoms better or worse. She states she is never had anything quite like this in the past. She denies any leg pain or swelling. Has any syncope or near syncopal type problems. Associated symptoms: Reports dyspnea; Deny abdominal pain, diaphoresis, fever(s), nausea, palpitations, syncope or vomiting Review of Systems Const: Denies: fever(s), chills, body aches, fatigue, malaise or diaphoresis Eyes: Denies: change in vision, blurry vision, photophobia, eye discomfort, eye discharge, eye redness or yellow eyes ENMT: Denies: throat pain, odynophagia, hoarseness, swelling of lips/tongue, ear or mastoid pain, ear discharge, change in hearing or nasal discharge Card: Reports: chest pain; Denies: palpitations, irregular heart rhythm, edema, lightheadedness, syncope, pre-syncope, dyspnea on exertion or orthopnea Resp: Reports: dyspnea and non-productive cough; Denies: productive cough, wheezing, hemoptysis or chest congestion GI: Denies: abdominal pain, nausea, vomiting, hematemesis, coffee ground emesis, heartburn, diarrhea, constipation, GI cramping, hematochezia or melena : Denies: flank pain, dysuria, urinary frequency, urinary urgency or hematuria Musc: Denies: neck pain, back pain, extremity pain, extremity swelling, joint pain, joint swelling, joint redness, joint warmth or joint stiffness Skin/Breast: Denies: rash, pruritus, erythema, skin pain or skin tenderness Neuro: Denies: headache(s), numbness in extremities, weakness in extremities, sensory changes, lack of coordination, difficulty walking, dizziness, vertigo, confusion, Slurred speech present or seizure-like activity Wilbur/Lymph: Denies: easy bruising, easy bleeding, petechiae, purpura or enlarged lymph nodes All/Imm: Denies: urticaria, throat swelling, tongue swelling, facial swelling or acute wheezing PFSH ED PFSH: Medical History Bladder stone Borderline personality disorder Chronic anxiety Chronic back pain greater than 3 months duration Chronic gastritis without bleeding Cystitis cystica Esophageal stricture Foreign body in bladder GERD without esophagitis Neurogenic bladder Restrictive lung disease Schizoaffective disorder, bipolar type Urgency incontinence Surgical History H/O colonoscopy with polypectomy H/O esophagogastroduodenoscopy (09/21/20) H/O: hysterectomy History of appendectomy History of breast biopsy History of foot surgery sx in 2009. Screws placed by Dr. Don. History of ureter stent Hx of cholecystectomy S/P bronchoscopy with biopsy Family History Mother No problems noted. Father No problems noted. Other Asthma Cancer Diabetes Heart disease Social History Smoking and tobacco status: current every day smoker cigarettes Years cigarettes smoked: 20 [ Other cigarette details: Hx of 1 PPD x 20 Years ] Quit status (tobacco): considering quitting Second hand smoke exposure: Yes Smoking risk assessment/counseling performed?: No Alcohol intake: never Counseling given: No Counseling given: No Lives independently: Yes Household members: spouse Marital status: Number of children: 3 Current occupational status: disabled History of recent travel: No Current gender identity: Female Female Reproductive History: Date of last menstrual period: 06/19/95 Physical Exam Const: COMMON NORMALS: no acute distress, patient oriented x3, no limitations and alert GENERAL APPEARANCE: cooperative HENMT: COMMON NORMALS: normocephalic, atraumatic, external ears normal, EAC's normal and Normal external nose present HEAD & SCALP: normal to inspection, normocephalic and atraumatic FACE & SINUS: normal facial exam and face symmetric NOSE: Normal external nose present and Normal nares present EXTERNAL EAR: Yes external ears normal EXTERNAL AUDITORY CANAL: EAC's normal MOUTH: Normal oral and palatal mucosa present, lip normal and tongue normal Eye: COMMON NORMALS: Equal, round and reactive pupils present and conjunctivae normal GENERAL EYE: appearance normal, both eyes and all related structures ALIGNMENT: Yes alignment normal PERIORBITAL: periorbital findings normal EYELID: eyelids normal CONJUNCTIVA: Yes conjunctivae normal SCLERA: sclerae normal PUPIL: Yes Equal, round and reactive pupils present Neck/C-Spine: COMMON NORMALS: full ROM, no lymphadenopathy, supple, no meningeal signs and no JVD GENERAL: Yes normal visual inspection and Yes trachea midline Chest: COMMONS NORMALS: normal inspection of the chest and normal palpation of entire chest wall Resp: COMMON NORMALS: normal respiratory effort, No retractions, No use of accessory muscles and clear to auscultation bilaterally EFFORT & INSPECTION: Yes able to speak in complete sentences and Yes symmetric chest movement AUSCULTATION: clear to auscultation bilaterally, no crackles, no rales, no rhonchi and no wheezes Cardio: COMMON NORMALS: no JVD, regular rate, regular rhythm, S1 normal heart sound present and S2 normal heart sound present RATE: regular rate RHYTHM: regular rhythm HEART SOUNDS: S1 normal heart sound present, S2 normal heart sound present, no click, no gallops, no murmurs and no rubs GI: COMMON NORMALS: Soft to palpation and No hepatosplenomegaly present PALPATION: Yes Soft to palpation, No Tenderness to palpation present (GI), No Guarding due to palpation present (GI), No Rigid due to palpation, Yes No hepatosplenomegaly present, No Hernia present, No Palpable mass present and No Pulsatile mass present : COMMON NORMALS: Yes no CVA tenderness BLADDER/KIDNEY EXAM: Yes no CVA tenderness EXTERNAL FEMALE EXAM: No Hernia present Back/Pelvis: COMMON NORMALS: no CVA tenderness, thoracic and lumbar spine normal to inspection, no thoracic nor lumbar tenderness and thoraco-lumbar ROM normal Extremity: COMMON NORMALS: normal to inspection, full ROM, capillary refill normal, no joint enlargement, no clubbing, cyanosis or edema and no calf tenderness Neuro: COMMON NORMALS: patient oriented x3, CN's II-XII intact bilaterally, moves all extremities, no focal motor deficits and no sensory deficits noted SENSORIUM/ORIENTATION: Yes alert MENINGEAL SIGNS: Yes no meningeal signs SPEECH: speech normal Psych: COMMON NORMALS: mental status grossly normal, Normal thought process present, cooperative, normal affect, speech normal and activity/motor behavior normal SPEECH: Yes normal speech THOUGHT PROCESS: Normal thought process present Skin: COMMON NORMALS: no rashes or lesions noted, turgor normal, no jaundice, no petechiae and no mottling GENERAL SKIN EXAM: no rashes or lesions noted and turgor normal Procedures EJ/Peripheral Line Arm L: Time Out Performed: Yes Skin Cleansed in Sterile Fashion: Yes Size (gauge): 18 IV Secured and Dressing Applied: Yes Patient Tolerated Procedure: well and no complications Additional Comments: Ultrasound utilized throughout procedure. Course Vital Signs: Vital signs: Vital Signs Temperature 98.7 F 10/25/20 15:33 Pulse Rate 72 10/25/20 17:26 Respiratory Rate 15 10/25/20 17:26 Blood Pressure 109/63 10/25/20 17:26 Pulse Oximetry 95 10/25/20 17:26 MDM - Chest Pain MDM Narrative: Medical decision making narrative: Latesha comes in with over 3 hours of constant chest pain. She has a pleuritic component to her pain. Her chest x-ray is negative there is no evidence of pneumonia. Her troponin is undetectable will order EKG is normal. Pressure suggest that constant chest pain for more than 3 hours with the new generation troponin rules out cardiac disease and per our hospital chest pain pathway chest pain for more than 3 hours negates acute coronary syndrome. I have offered to observe her longer but she refuses. She wants to go home. She understands that this does limit my evaluation but she agrees to return for symptoms change or worsen. Patient was warned but she was welcome to return. Lab Data: Labs: Lab Results 10/25/20 10/25/20 10/25/20 Range/Units 16:33 16:33 16:33 WBC 12.6 H (4.0-10.0) 10^3/ uL RBC 4.40 (4.1-5.3) 10^6/u L Hgb 13.2 (11.5-15.3) g/dL Hct 40.4 (37.0-47.0) % MCV 91.8 (81-99) fL MCH 30.0 (28.0-34.0) pg MCHC 32.7 (30.0-36.0) g/dL RDW 15.8 H (12.1-15.1) % Plt Count 248 (130-400) 10^3/c mm MPV 9.8 (7.4-10.4) fL Neut % (Auto) 63.7 % Lymph % (Auto) 21.8 % Stearns % (Auto) 7.4 % Eos % (Auto) 5.8 % Baso % (Auto) 0.9 % Neut # (Auto) 8.04 H (1.8-7.7) 10^3/u L Lymph # (Auto) 2.8 (0.8-4.8) 10^3/u L Stearns # (Auto) 0.9 (0.2-0.9) 10^3/u L Eos # (Auto) 0.7 (0.0-0.8) 10^3/u L Baso # (Auto) 0.1 (0.0-0.1) 10^3/u L Nucleated RBC % (a uto) 0 % Nucleated RBCs # 0.0 /100WBC D-Dimer (0-0.59) ug/mIFE U Sodium 141 (136-145) mmol/L Potassium 3.9 (3.5-5.1) mmol/L Chloride 105 (98-107) mmol/L Carbon Dioxide 24 (22-29) mmol/L Anion Gap 15.9 (5-19) BUN 18 (6-20) mg/dL Creatinine 1.1 H (0.5-0.9) mg/dL GFR Calculation 52.2 L (90-130) mL/min Glucose 97 (65-115) mg/dL Calculated Osmolal ity 294 (285-295) mOsm/k g Lactic Acid 1.2 (0.5-2.2) mmol/L Calcium 9.0 (8.5-10.5) mg/dL Magnesium 2.1 (1.7-2.3) mg/dL Total Bilirubin 0.2 (0.15-1.2) mg/dL AST 10 (0-32) U/L ALT 7 (0-33) U/L Alkaline Phosphata se 115 H (35-105) IU/L Troponin T Baselin e (0-10) ng/L NT-Pro-B Natriuret Pep 362 H (0-125) pg/mL Total Protein 6.0 L (6.6-8.7) g/dL Albumin 4.1 (3.5-5.2) g/dL Globulin 1.9 (1.3-4.6) g/dL 10/25/20 10/25/20 Range/Units 16:33 16:33 WBC (4.0-10.0) 10^3/ uL RBC (4.1-5.3) 10^6/u L Hgb (11.5-15.3) g/dL Hct (37.0-47.0) % MCV (81-99) fL MCH (28.0-34.0) pg MCHC (30.0-36.0) g/dL RDW (12.1-15.1) % Plt Count (130-400) 10^3/c mm MPV (7.4-10.4) fL Neut % (Auto) % Lymph % (Auto) % Stearns % (Auto) % Eos % (Auto) % Baso % (Auto) % Neut # (Auto) (1.8-7.7) 10^3/u L Lymph # (Auto) (0.8-4.8) 10^3/u L Stearns # (Auto) (0.2-0.9) 10^3/u L Eos # (Auto) (0.0-0.8) 10^3/u L Baso # (Auto) (0.0-0.1) 10^3/u L Nucleated RBC % (a uto) % Nucleated RBCs # /100WBC D-Dimer <= 0.27 (0-0.59) ug/mIFE U Sodium (136-145) mmol/L Potassium (3.5-5.1) mmol/L Chloride (98-107) mmol/L Carbon Dioxide (22-29) mmol/L Anion Gap (5-19) BUN (6-20) mg/dL Creatinine (0.5-0.9) mg/dL GFR Calculation (90-130) mL/min Glucose (65-115) mg/dL Calculated Osmolal ity (285-295) mOsm/k g Lactic Acid (0.5-2.2) mmol/L Calcium (8.5-10.5) mg/dL Magnesium (1.7-2.3) mg/dL Total Bilirubin (0.15-1.2) mg/dL AST (0-32) U/L ALT (0-33) U/L Alkaline Phosphata se (35-105) IU/L Troponin T Baselin e 6 (0-10) ng/L NT-Pro-B Natriuret Pep (0-125) pg/mL Total Protein (6.6-8.7) g/dL Albumin (3.5-5.2) g/dL Globulin (1.3-4.6) g/dL Imaging Data^: CXR: Attestation: I personally reviewed and interpreted this imaging study as follow s: My impression: No acute cardiopulmonary findings EKG Data^: EKG 1: Attestation: I personally reviewed and interpreted this EKG as follows: Interpretation: 1550 -normal sinus rhythm 79 beats a minute, no acute ST-T wave changes. Discharge Plan Discharge Patient Disposition: Home Clinical Impression: Chest pain Qualifiers: Chest pain type: chest pain on breathing Qualified Code(s): R07.1 - Chest pain on breathing Condition: Stable Prescriptions: No Action trazodone 300 mg tablet 300 mg PO BEDTIME@2100 Qty: 30 RF: 1 lorazepam 0.5 mg tablet 0.5 mg PO DAILY PRN (Reason: Anxiety) 30 Days Qty: 30 RF: 1 buspirone 15 mg tablet 15 mg PO TID@0600,1200,1800 Qty: 90 RF: 2 Benefiber Healthy Shape 5 gram/7.4 gram Powder 5 g PO BID@0600,1800 RF: 0 lamotrigine 200 mg tablet 200 mg PO DAILY@0600 RF: 0 Breo Ellipta 100-25 mcg/dose blister with device 1 inh inhalation DAILY@0600 RF: 0 Ingrezza 80 mg capsule 80 mg PO DAILY@0600 RF: 0 ascorbic acid (vitamin C) [Vitamin C] 1,000 mg Tablet 1,000 mg PO BID@0600,1800 RF: 0 escitalopram oxalate 10 mg tablet 10 mg PO DAILY Qty: 30 RF: 0 16.2 mg-0.1037 mg/5 mL (5 mL) elixir 10 ml PO BID Qty: 50 RF: 0 acetaminophen [Tylenol Arthritis Pain] 650 mg Tablet Extended Release 1,000 mg PO Q6H PRN (Reason: Pain) RF: 0 ondansetron HCl [Zofran] 4 mg tablet 4 mg PO QID PRN (Reason: nausea and vomiting) Qty: 14 RF: 0 pantoprazole 40 mg tablet,delayed release (DR/EC) 40 mg PO DAILY@0800 Qty: 30 RF: 0 hydroxyzine pamoate 50 mg capsule 50 mg PO QID PRN (Reason: Anxiety) RF: 0 albuterol sulfate 90 mcg/actuation HFA aerosol inhaler 2 puff inhalation Q6H PRN (Reason: shortness of breath or wheezing) RF: 0 ipratropium-albuterol 0.5 mg-3 mg(2.5 mg base)/3 mL solution for nebulization 3 ml inhalation Q4H PRN (Reason: Shortness Of Breath Or Wheezing) RF: 0 venlafaxine 75 mg capsule,extended release 24hr 75 mg PO TID@0600,1200,1800 RF: 0 methenamine hippurate 1 gram tablet 1 g PO BID@0600,1800 RF: 0 dijtdlqi-mtsruug-jfyu-lutein Tablet 1 tab PO DAILY@0600 RF: 0 trospium 20 mg tablet 20 mg PO BID@0600,1800 RF: 0 Discharge Orders: Discharge ED (Routine); Ordered 10/25/20 Ordered By: Ann Morgan Referrals: Dara Tavera FNP [Primary Care Provider] - 1-3 days Discharge Diet: Advance as tolerated Discharge Activity: Increase activity as tolerated Patient Instructions: Chest Pain (ED), Pleurisy (ED), Costochondritis (ED), Opioid Safety Activity Restrictions/Additional Instructions: Please return to the ER immediately for any of the signs or symptoms listed on your discharge instruction sheets, worsening/changing of your symptoms, you are not getting better as quickly as expected, or for ANY other cause or concerns. You have been offered further evaluation and care of your heart but you have declined. If you change your mind, your symptoms return, with shortness of breath or have any other symptoms that concern you you are more than welcome to return to the ER. Coding Level of Care Code ED Electrical Automation Engineer for Shellie Fwd Exam Comprehensive
[2020-10-25 16:44] LABS: Basophils # 0.1 10^3/uL (0.0-0.1); Basophils % 0.9 %; Eosinophils # 0.7 10^3/uL (0.0-0.8); Eosinophils % 5.8 %; Hematocrit 40.4 % (37.0-47.0); Hemoglobin 13.2 g/dL (11.5-15.3); Lymphocytes # 2.8 10^3/uL (0.8-4.8); Lymphocytes % 21.8 %; Mean Corpuscular HGB Conc 32.7 g/dL (30.0-36.0); Mean Corpuscular Volume 91.8 fL (81-99); Mean Platelet Volume 9.8 fL (7.4-10.4); Monocytes # 0.9 10^3/uL (0.2-0.9); Monocytes % 7.4 %; Neutrophils # 8.04 10^3/uL (1.8-7.7); Neutrophils % 63.7 %; Nucleated Red Blood Cells % 0 %; Platelet Count 248 10^3/cmm (130-400); Red Cell Distribution Width 15.8 % (12.1-15.1); White Blood Count 12.6 10^3/uL (4.0-10.0)
[2020-10-25 17:08] LABS: D Dimer <= 0.27 ug/mIFEU (0-0.59)
[2020-10-25 17:10] LABS: Lactic Sepsis W/Reflex 1.2 mmol/L (0.5-2.2)
[2020-10-25 17:13] LABS: Troponin(5th) Baseline 6 ng/L (0-10)
[2020-10-25 17:22] LABS: Alanine Aminotransferase 7 U/L (0-33); Albumin Level 4.1 g/dL (3.5-5.2); Alkaline Phosphatase 115 IU/L (35-105); Anion Gap 15.9 (5-19); Aspartate Amino Transferase 10 U/L (0-32); Blood Urea Nitrogen 18 mg/dL (6-20); Carbon Dioxide 24 mmol/L (22-29); Chloride 105 mmol/L (98-107); Globulin 1.9 g/dL (1.3-4.6); Glomerular Filtration Rate 52.2 mL/min (90-130); Glucose 97 mg/dL (65-115); Magnesium 2.1 mg/dL (1.7-2.3); NT Pro B Type Natriuretic Pept 362 pg/mL (0-125); Osmolality Calculated 294 mOsm/kg (285-295); Potassium 3.9 mmol/L (3.5-5.1); Sodium 141 mmol/L (136-145); Total Bilirubin 0.2 mg/dL (0.15-1.2)
[2020-10-25] MEDS: ondansetron 2 mg/ML SDV 2 mL 4 MG IVP (17:25)
--- NOTE | 2020-10-25 17:27 | PC.NURSE ---
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 pt offered PRN nitroglycerin for chest pain and pt refused.
--- NOTE | 2020-10-25 18:06 | PC.NURSE ---
yu advised patient she would not get anymore pain medicine but will stay for second troponin which will be due at 1930 she stated that she will just go home.
[2020-10-25] MEDS: acetaminophen 500 mg Tablet 1000 MG PO (18:26)
--- NOTE | 2020-10-25 18:30 | PC.NURSE ---
nurse in to get patient discharged and mentioned she needs to sign AMA form since she was neglecting to stay for the 2nd troponin and EKG to complete cardiac rule out. Pt got upset stating, I am not going to leave AMA. I will just stay for my blood draw. . ER physician notified. Pt continues to remain in ER room. Nurse continues to monitor.
[2020-10-25 19:10] LABS: Troponin 5 2HR 7.17 ng/L (0-10); Troponin 5 2HR Delta 1.17 ABS# (0-10)
== END 2020-10-25 20:15 | disposition home or self-care (01) ==
PROVIDERS: Emergency Provider Emergency Medicine; PCP Registered Nurse
DX: R07.9 Chest pain, unspecified (principal); F17.210 Nicotine dependence, cigarettes, uncomplicated
CPT/HCPCS: 36415; 71045; 80053; 83605; 83735; 83880; 84484; 85025; 85378; 96374; 99284; J2405

== ENCOUNTER → 2020-10-29 08:21 | Outpatient (BNVA) | payer MEDICARE, MEDICAID, SELFPAY | PROVIDERS: PCP Registered Nurse; Visit Provider Nurse Practitioner | DX: F25.0 Schizoaffective disorder, bipolar type (principal); F60.3 Borderline personality disorder | CPT/HCPCS: 99214 ==

== ENCOUNTER 2020-11-09 18:19 | Inpatient (IN) | payer MEDICARE, MEDICAID, SELFPAY ==
[2020-11-09 18:45] VITALS: BP 84/57; PULSE 89; RESP 18; TEMP 36.8; O2SAT 96; BMI 32.4
--- NOTE | 2020-11-09 21:40 | ECG_ITS ---
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 Measurements Intervals [place] Rate: 65 P: 52 AL: 149 QRS: 41 QRSD: 106 T: 51 QT: 450 QTc: 470 Interpretive Statements SINUS RHYTHM Compared to ECG 09/26/2020 16:57:03 No significant changes Electronically Signed On 11-10-2020 9:25:32 CDT by Severo Aly M.D. [email or web address]
--- NOTE | 2020-11-09 21:42 | CTR_ITS ---
PROCEDURE INFORMATION: Exam: CT Abdomen And Pelvis With Contrast Exam date and time: 11/09/2020 10:03 PM Age: 54 years old Clinical indication: Vomiting; Abdominal pain; Epigastric; Prior surgery; Surgery type: Gb, appy, bladder, hyst; Additional info: Epigastric abd pain, vomiting TECHNIQUE: Imaging protocol: Computed tomography of the abdomen and pelvis with contrast. Radiation optimization: All CT scans at this facility use at least one of these dose optimization techniques: automated exposure control; mA and/or kV adjustment per patient size (includes targeted exams where dose is matched to clinical indication); or iterative reconstruction. Contrast material: OMNI 300; Contrast volume: 95 ml; Contrast route: INTRAVENOUS (IV); COMPARISON: CT abdomen pelvis w con* [id number] 09/20/2020 11:42 PM RADIATION DOSE METRICS: Total DLP (mGy-cm): 1782.44 FINDINGS: Liver: Normal. No mass. Gallbladder and bile ducts: Stable cholecystectomy. Pancreas: Normal. No ductal dilation. Spleen: Calcified splenic granulomas. Adrenal glands: Normal. No mass. Kidneys and ureters: One or more nonobstructing right renal calyceal stones. Stomach and bowel: Unremarkable. No obstruction. No mucosal thickening. Appendix: No evidence of appendicitis. Intraperitoneal space: Unremarkable. No free air. No significant fluid collection. Vasculature: Calcification of the abdominal aorta and/or iliac arteries consistent with atherosclerotic vessel disease. One or more calcified pelvic phleboliths. Lymph nodes: Stable 9 mm gastrosplenic lymph node. Urinary bladder: Unremarkable as visualized. Reproductive: Stable hysterectomy. Bones/joints: Stable postoperative changes over the left groin and pubic bone area. Moderate to severe multilevel spine degenerative changes including degenerative disc disease, spondylosis and facet degenerative changes. Soft tissues: Unremarkable. Other findings: Stable moderate right retained feces. CT/CT abdomen pelvis w con* [id number] IMPRESSION: Stable cholecystectomy. Radiation Dose CTDIVOL = (mGy): DLP = 1782.44 (mGy-cm)
[2020-11-09 21:46] LABS: Basophils # 0.1 10^3/uL (0.0-0.1); Basophils % 0.8 %; Eosinophils # 0.2 10^3/uL (0.0-0.8); Eosinophils % 1.6 %; Hematocrit 40.1 % (37.0-47.0); Hemoglobin 12.9 g/dL (11.5-15.3); Lymphocytes # 4.1 10^3/uL (0.8-4.8); Lymphocytes % 28.8 %; Mean Corpuscular HGB Conc 32.2 g/dL (30.0-36.0); Mean Corpuscular Hemoglobin 30.3 pg (28.0-34.0); Mean Corpuscular Volume 94.1 fL (81-99); Monocytes # 1.2 10^3/uL (0.2-0.9); Monocytes % 8.1 %; Neutrophils # 8.58 10^3/uL (1.8-7.7); Neutrophils % 60.1 %; Nucleated Red Blood Cells % 0 %; Platelet Count 265 10^3/cmm (130-400); Red Blood Count 4.26 10^6/uL (4.1-5.3); Red Cell Distribution Width 16.7 % (12.1-15.1); White Blood Count 14.3 10^3/uL (4.0-10.0)
[2020-11-09 21:50] VITALS: BP 121/74; PULSE 73; O2SAT 93
[2020-11-09] MEDS: sodium chloride 0.9% 1,000 ML 999 ML IV ×2 (21:51→23:50)
[2020-11-09 21:54] LABS: Add Urine Microscopic? NO; Charge for UA Resulting for Rev
[2020-11-09 22:00] LABS: Bilirubin Urine Neg (Negative); Blood Urine Neg (Negative); Glucose Urine UA Norm (Normal); Ketones Urine Negative (Negative); Leukocyte Esterase Urine Negative (Negative); Nitrate Urine Negative (Negative); Protein Urine Neg (Negative); Urine Appearance Clear (CLEAR); Urine Color Yellow (Yellow); Urobilinogen Urine Norm (Negative); pH Urine 5 (5-7)
[2020-11-09 22:08] LABS: Troponin(5th) Baseline 6 ng/L (0-10)
[2020-11-09 22:11] LABS: Alanine Aminotransferase 12 U/L (0-33); Albumin Level 4.1 g/dL (3.5-5.2); Alkaline Phosphatase 110 IU/L (35-105); Anion Gap 17.1 (5-19); Aspartate Amino Transferase 10 U/L (0-32); Blood Urea Nitrogen 30 mg/dL (6-20); Calcium 8.5 mg/dL (8.5-10.5); Carbon Dioxide 22 mmol/L (22-29); Chloride 106 mmol/L (98-107); Globulin 1.5 g/dL (1.3-4.6); Glomerular Filtration Rate 75.3 mL/min (90-130); Glucose 84 mg/dL (65-115); Lipase 34 U/L (13-60); Osmolality Calculated 297 mOsm/kg (285-295); Potassium 4.1 mmol/L (3.5-5.1); Sodium 141 mmol/L (136-145); Total Bilirubin 0.2 mg/dL (0.15-1.2); Total Protein 5.6 g/dL (6.6-8.7)
[2020-11-09] MEDS: iohexol 300 mg/mL 100 mL Btl IV (22:16)
[2020-11-09 22:30] LABS: Lactate (Lactic Acid level) 6.4 mmol/L (0.5-2.2)
[2020-11-09 22:36] VITALS: RESP 20; O2SAT 97
[2020-11-09] MEDS: morphine 4 mg/mL SDV 1 mL 2 MG IVP (22:36)
[2020-11-09] MEDS: ondansetron 2 mg/ML SDV 2 mL 4 MG IVP (22:36)
[2020-11-09] MEDS: lidocaine 2% viscous 15 ML, aluminum-mag hydrox-simethicon 30 ML, sucralfate oral liq 1 GM PO (22:37)
--- NOTE | 2020-11-09 23:03 | XRR_ITS ---
PROCEDURE INFORMATION: Exam: XR Chest Exam date and time: 11/09/2020 11:04 PM Age: 54 years old Clinical indication: Shortness of breath; Additional info: Reduced breath sounds TECHNIQUE: Imaging protocol: XR of the chest. Views: 1 view. COMPARISON: CR (CHEST, ) 10/25/2020 4:09 PM, CTA chest dated January 31, 2020. FINDINGS: Lungs: Mild bilateral peribronchial thickening and mild perihilar linear markings consistent with bronchitis and/or viral pneumonitis and/or reactive airway disease and/or atypical pulmonary interstitial edema. Pleural spaces: Unremarkable. No pleural effusion. No pneumothorax. Heart/Mediastinum: Unremarkable. No cardiomegaly. Bones/joints: See Soft tissues finding. Soft tissues: 3.7 x 1.2 cm right paraspinous lesion centered over the T7 level which is stable compared to the recent chest x-ray. There is a corresponding enhancing soft tissue lesion noted on previous CTA chest dated January 31, 2020, axial series 2, image 268. Also coronal series 603, image 19. Possible extramedullary hematopoiesis versus other benign or malignant lesion. Repeat CTA chest and/or MRI thoracic spine may be helpful with comparison to the regional CTA chest to evaluate stability may be helpful. XR/XR chest 1V portable [id number] IMPRESSION: 1. Mild bilateral peribronchial thickening and mild perihilar linear markings consistent with bronchitis and/or viral pneumonitis and/or reactive airway disease and/or atypical pulmonary interstitial edema. 2. 3.7 x 1.2 cm right paraspinous lesion centered over the T7 level which is stable compared to the recent chest x-ray. There is a corresponding enhancing soft tissue lesion noted on previous CTA chest dated January 31, 2020, axial series 2, image 268. Also coronal series 603, image 19. Possible extramedullary hematopoiesis versus other benign or malignant lesion. Repeat CTA chest and/or MRI thoracic spine may be helpful with comparison to the regional CTA chest to evaluate stability may be helpful.
--- NOTE | 2020-11-09 23:16 | P.HP_ITS ---
Providers/Chief Complaint Primary Care Provider: AMANDEEP Barclay Chief Complaint: ABDOMINAL PAIN History of Present Illness Latesha Wilhelm is a 54 year old female who has history of schizoaffective disorder: Borderline personality disorder, esophageal stricture requiring dilation in the past (in total she has had 5 EGDs with dilation), which an EGD did not reveal any obstruction however she vomited just before induction of an esthesia which probably cleared her food bolus related esophageal obstruction presenting today with chief complaint of intractable nausea vomiting. Patient is stating that at baseline she is able to eat mechanical soft diet because of her teeth, she was in her usual state of health until today when in the morning she ate waffles. After that she has had 10 episodes of emesis, was not able to keep anything down. She did not experience any fever, cough, dysuria or changes in bowel movement. 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 Diagnosis in the ER revealed mild leukocytosis, lactic acid 6, chest x-ray unremarkable, clinically looks mildly dehydrated received 2 L normal saline for lactic acid of 6. Antibiotics were put on hold, for cause of lactic acidemia is dehydration due to 10 episode of emesis. Review of Systems Const: Denies: fever(s) Eyes: Denies: change in vision ENMT: Reports: throat pain Card: Denies: chest pain Resp: Denies: dyspnea GI: Reports: abdominal pain, nausea, vomiting and heartburn; Denies: diarrhea or constipation : Denies: flank pain Musc: Denies: neck pain Skin/Breast: Denies: rash Neuro: Denies: headache(s) Psych: Reports: anxiety and depression; Denies: difficulty concentrating, auditory hallucinations or suicidal ideation Endo: Denies: polyuria Wilbur/Lymph: Denies: easy bruising All/Imm: Denies: urticaria Medications/Allergies Home Medications Medication Instructions Recorded Confirmed Last Taken Type acetaminophen [Tylenol Arthritis 1,000 mg PO Q6H PRN 03/11/20 11/09/20 09/29/20 History Pain] ondansetron HCl [Zofran] 4 mg PO QID PRN #14 tab 03/19/20 11/09/20 09/29/20 Rx trazodone 300 mg tablet 300 mg PO BEDTIME@2100 #30 tab 08/17/20 11/09/20 10/19/20 Rx Benefiber Healthy Shape 5 g PO BID@0600,1800 09/09/20 11/09/20 10/20/20 History Breo Ellipta 1 inh INHALATION DAILY@0600 09/09/20 11/09/20 10/20/20 History Ingrezza 80 mg PO DAILY@0600 09/09/20 11/09/20 10/20/20 History lamotrigine 200 mg PO DAILY@0600 09/09/20 11/09/20 10/20/20 History pantoprazole 40 mg PO DAILY@0800 #30 tab 09/21/20 11/09/20 10/20/20 Rx albuterol sulfate 2 puff INHALATION Q6H PRN 09/26/20 11/09/20 09/29/20 History hydroxyzine pamoate 50 mg PO QID PRN 09/26/20 11/09/20 10/20/20 History ipratropium-albuterol 3 ml INHALATION Q4H PRN 09/26/20 11/09/20 09/29/20 History methenamine hippurate 1 g PO BID@0600,1800 09/29/20 11/09/20 10/20/20 History qdyzduex-ratbvix-vdxy-lutein 1 tab PO DAILY@0600 09/29/20 11/09/20 10/20/20 History trospium 20 mg PO BID@0600,1800 09/29/20 11/09/20 10/20/20 History buspirone 15 mg tablet 15 mg PO TID@0600,1200,1800 #90 tab 10/16/20 11/09/20 10/20/20 Rx ascorbic acid (vitamin C) [Vitamin 1,000 mg PO BID@0600,1800 10/20/20 11/09/20 10/20/20 History C] escitalopram oxalate 10 mg PO DAILY #30 tab NS 10/20/20 11/09/20 Unknown Rx xetcmvogr-iuyfca-rwyrnbdh-scop 10 ml PO BID #50 ml 10/20/20 11/09/20 Unknown Rx [] olanzapine 5 mg tablet 5 mg PO .HS #30 tab 10/29/20 11/09/20 Unknown Rx lorazepam 0.5 mg tablet 0.5 mg PO DAILY PRN 30 Days #30 tab 11/09/20 11/09/20 Unknown Rx Allergies Allergy/AdvReac Type Severity Reaction Status Date / Time Penicillins Allergy Severe ALGY-Anaphy Verified 11/09/20 18:45 laxis sulfamethoxazole Allergy Severe ALGY-Hives Verified 11/09/20 18:45 [From Bactrim] Tetracyclines Allergy Severe ALGY-Hives Verified 11/09/20 18:45 gabapentin [From Neurontin] Allergy Intermediate ADR-Halluci Verified 11/09/20 18:45 nating ketorolac [From Toradol] Allergy Intermediate ALGY-Rash Verified 11/09/20 18:45 lithium Allergy Intermediate ADR-Halluci Verified 11/09/20 18:45 nating fentanyl Allergy Mild rash Verified 11/09/20 18:45 adhesive tape Allergy Rash Verified 11/09/20 18:45 codeine Allergy GI Verified 11/09/20 18:45 duloxetine [From Cymbalta] Allergy ALGY-Rash Verified 11/09/20 18:45 fluoxetine Allergy ADR-Migrain Verified 11/09/20 18:45 e haloperidol [From Haldol] Allergy unknown Verified 11/09/20 18:45 influenza virus vacc Allergy ALGY-Difficulty Verified 11/09/20 18:45 trivalent, who Breathing metoclopramide [From Reglan] Allergy ADR-Shakine Verified 11/09/20 18:45 ss pneumococcal vaccine Allergy ALGY-Anaphy Verified 11/09/20 18:45 laxis quetiapine [From Seroquel] Allergy Unknown Verified 11/09/20 18:45 tramadol Allergy Unknown Verified 11/09/20 18:45 trimethoprim [From Bactrim] Allergy ALGY-Hives Verified 11/09/20 18:45 ziprasidone [From Geodon] AdvReac Severe ADR-Halluci Verified 11/09/20 18:45 nating risperidone [From Risperdal] AdvReac ADR-Halluci Verified 11/09/20 18:45 nating PFSH Acute PFSH: Medical History Bladder stone Borderline personality disorder Chronic anxiety Chronic back pain greater than 3 months duration Chronic gastritis without bleeding Cystitis cystica Esophageal stricture Foreign body in bladder GERD without esophagitis Neurogenic bladder Restrictive lung disease Schizoaffective disorder, bipolar type Urgency incontinence Surgical History (Updated 11/10/20 @ 00:23 by Frances Mello MD) H/O bladder repair surgery MESH REPAIR H/O colonoscopy with polypectomy H/O esophagogastroduodenoscopy (09/21/20) H/O: hysterectomy History of appendectomy History of breast biopsy History of foot surgery sx in 2009. Screws placed by Dr. Don. History of ureter stent Hx of cholecystectomy S/P bronchoscopy with biopsy Family History Mother No problems noted. Father No problems noted. Other Asthma Cancer Diabetes Heart disease Social History Smoking and tobacco status: current every day smoker cigarettes Years cigarettes smoked: 20 [ Other cigarette details: Hx of 1 PPD x 20 Years ] Quit status (tobacco): considering quitting Second hand smoke exposure: Yes Smoking risk assessment/counseling performed?: No Alcohol intake: never Counseling given: No Counseling given: No Lives independently: Yes Household members: spouse Marital status: Number of children: 3 Current occupational status: disabled History of recent travel: No Current gender identity: Female Female Reproductive History: Date of last menstrual period: 06/19/95 Vitals/I&O/Wt Last Vital Signs Temp 98.3 F 11/09/20 18:45 Pulse 73 11/09/20 21:50 Resp 20 H 11/09/20 22:36 BP 121/74 11/09/20 21:50 Pulse Ox 97 11/09/20 22:36 Weight last 48 hrs Weight 88.451 kg Physical Exam Narrative: EXAM NARRATIVE: Middle-age female currently laying com fortably in her bed At the time my evaluation normal hemodynamics was saturating well on room air Complaining of epigastric pain 3/10, mild tenderness on deep palpation, bowel sounds present, no signs of rigidity or guarding S1, S2 no signs of heart failure No acute respiratory distress no audible stridor or wheezing No neurological deficits Appropriate mood and affect No joint swelling EOMI, PERRLA, awake alert oriented x3 Data : 11/09/20 21:41 11/09/20 21:41 A&P Assessment and plan (1) Abdominal pain: Status: Acute (2) Increased lactic acid level: Status: Acute Additional A&P Information Intractable nausea vomiting Lactic acidosis secondary to hypoperfusion, no active signs of infection, chest x-ray clear no signs of sepsis Hold antibiotics continue IV fluid hydration, received 2 L of normal saline in the ER, repeat lactic acid She is afebrile Has had multiple EGDs with dilation however no stents were placed, 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 Colon, will request records, patient does not want to go to [place] at this point CT abdomen unremarkable Zofran for emesis I will keep her on clear liquid diet advance as tolerated in the morning, systolic blood pressure improved after IV fluid hydration DVT prophylaxis: SCDs avoid anticoagulation in case she would require EGD N.p.o. 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
--- NOTE | 2020-11-09 23:21 | ED_ITS ---
HPI - Abdominal Pain General: Chief Complaint: Abdominal Pain Stated Complaint: ABDOMINAL PAIN Time Seen by Provider: 11/09/20 21:14 History of Present Illness: HPI narrative: The patient is a 54-year-old female with past medical history abdominal pain who comes to the ER complaining of epigastric abdominal pain, nausea, vomiting and she feels like anytime she eats or drinks anything it comes immediately back up. She says she is vomited significantly over the past day at home and has tried to take viscous lidocaine which she has at home which did not help her symptoms. She says she has been dilated in the past. EGD early September 2020 was unremarkable. MD elicited complaint: abdominal pain Pain Consistency: constant Location: Epigastric Severity: moderate Quality: sharp Radiation: none Migration to: no migration Exacerbating factors: eating Relieving factors: nothing Associated Symptoms: Reports nausea and vomiting Related Data: Date of Last Menstrual Period: 06/19/95 Review of Systems General: Reports: 10 or more systems reviewed and unremarkable except in HPI and below Const: Denies: fatigue Eyes: Denies: change in vision, blurry vision or eye redness ENMT: Denies: throat pain, swelling of lips/tongue, ear or mastoid pain or nasal congestion Card: Denies: chest pain, palpitations, irregular heart rhythm, edema, dyspnea on exertion or orthopnea Resp: Denies: dyspnea, productive cough or non-productive cough GI: Reports: abdominal pain, nausea and vomiting : Denies: flank pain, difficulty voiding, urinary frequency or urinary urgency Musc: Denies: neck pain, back pain, extremity pain, joint pain, joint redness, limited range of motion or muscle weakness Skin/Breast: Denies: rash, pruritus, erythema, skin pain or skin tenderness Neuro: Denies: headache(s), numbness in extremities, weakness in extremities, sensory changes, difficulty walking, dizziness, confusion or Slurred speech present Psych: Denies: anxiety or depression Endo: Denies: polyuria All/Imm: Denies: urticaria, throat swelling or tongue swelling PFSH ED PFSH: Medical History Bladder stone Borderline personality disorder Chronic anxiety Chronic back pain greater than 3 months duration Chronic gastritis without bleeding Cystitis cystica Esophageal stricture Foreign body in bladder GERD without esophagitis Neurogenic bladder Restrictive lung disease Schizoaffective disorder, bipolar type Urgency incontinence Surgical History H/O colonoscopy with polypectomy H/O esophagogastroduodenoscopy (09/21/20) H/O: hysterectomy History of appendectomy History of breast biopsy History of foot surgery sx in 2009. Screws placed by Dr. Don. History of ureter stent Hx of cholecystectomy S/P bronchoscopy with biopsy Family History Mother No problems noted. Father No problems noted. Other Asthma Cancer Diabetes Heart disease Social History Smoking and tobacco status: current every day smoker cigarettes Years cigarettes smoked: 20 [ Other cigarette details: Hx of 1 PPD x 20 Years ] Quit status (tobacco): considering quitting Second hand smoke exposure: Yes Smoking risk assessment/counseling performed?: No Alcohol intake: never Counseling given: No Counseling given: No Lives independently: Yes Household members: spouse Marital status: Number of children: 3 Current occupational status: disabled History of recent travel: No Current gender identity: Female Female Reproductive History: Date of last menstrual period: 06/19/95 Physical Exam Const: COMMON NORMALS: no acute distress, average body habitus, patient o riented x3, no limitations, healthy appearing, alert and well nourished GENERAL APPEARANCE: cooperative, comfortable, well kempt and well developed ORIENTATION/CONSCIOUSNESS: Yes awake, Yes oriented to person, Yes oriented to place and Yes oriented to time HENMT: COMMON NORMALS: normocephalic, external ears normal and Normal external nose present HEAD & SCALP: normal to inspection and normocephalic NOSE: Normal external nose present EXTERNAL EAR: Yes external ears normal MOUTH: Normal oral and palatal mucosa present THROAT: posterior oropharynx normal Eye: COMMON NORMALS: Equal, round and reactive pupils present and EOMs intact bilaterally GENERAL EYE: appearance normal, both eyes and all related structures PUPIL: Yes Equal, round and reactive pupils present Neck/C-Spine: COMMON NORMALS: full ROM, no lymphadenopathy, no meningeal signs and no JVD GENERAL: Yes normal visual inspection Lymph: LYMPHATIC: no lymphadenopathy noted Chest: COMMONS NORMALS: normal inspection of the chest and normal palpation of entire chest wall Resp: COMMON NORMALS: normal respiratory effort, No retractions, No use of accessory muscles, clear to auscultation bilaterally and percussion normal EFFORT & INSPECTION: Yes able to speak in complete sentences AUSCULTATION: clear to auscultation bilaterally PERCUSSION: percussion normal Cardio: COMMON NORMALS: no JVD, regular rate, regular rhythm, S1 normal heart sound present, S2 normal heart sound present and Peripheral pulses 2+ throughout RATE: regular rate RHYTHM: regular rhythm HEART SOUNDS: S1 normal heart sound present and S2 normal heart sound present PERIPHERAL PULSES: Peripheral pulses 2+ throughout GI: COMMON NORMALS: Normal to inspection, nondistended, normoactive bowel sounds present, Soft to palpation and no masses INSPECTION: Yes normal to inspection PALPATION: Yes Soft to palpation and Yes Tenderness to palpation present (GI) (Epigastric tenderness. Soft. No rebound tenderness. Normal bowel sounds) GI image (female): 1. Epigastric tenderness : COMMON NORMALS: Yes no CVA tenderness BLADDER/KIDNEY EXAM: Yes no CVA tenderness Back/Pelvis: COMMON NORMALS: no CVA tenderness, thoracic and lumbar spine normal to inspection, no thoracic nor lumbar tenderness and thoraco-lumbar ROM normal Extremity: COMMON NORMALS: normal to inspection, full ROM, capillary refill normal, no joint enlargement and no pedal edema GENERAL: Yes normal exam except as noted Neuro: COMMON NORMALS: patient oriented x3, CN's II-XII intact bilaterally, moves all extremities, no focal motor deficits, no sensory deficits noted and gait normal SENSORIUM/ORIENTATION: Yes alert, Yes oriented to person, Yes oriented to place and Yes oriented to time MENINGEAL SIGNS: Yes no meningeal signs Psych: COMMON NORMALS: mental status grossly normal, Normal thought process present, cooperative, normal affect and speech normal APPEARANCE: Yes well kempt ATTITUDE: Yes calm SPEECH: Yes normal speech THOUGHT PROCESS: Normal thought process present Skin: COMMON NORMALS: no rashes or lesions noted GENERAL SKIN EXAM: no rashes or lesions noted Course 2 Vital Signs: Vital signs: Vital Signs Temperature 98.3 F 11/09/20 18:45 Pulse Rate 73 11/09/20 21:50 Respiratory Rate 20 H 11/09/20 22:36 Blood Pressure 121/74 11/09/20 21:50 Pulse Oximetry 97 11/09/20 22:36 MDM - Abdominal Pain MDM Narrative: Medical decision making narrative: Patient comes to the ER with an exacerbation of her chronic epigastric abdominal pain. She also says she is having difficulty swallowing things and that when she tries to swallow they come back up and vomit. She was given IV fluids and pain control in the ED and swallowed a GI cocktail without difficulty. She has a EGD early October 2020 which was unremarkable. Lactic acid did come back significantly elevated at 6.4. She was given 2 L IV fluids as it is probably from dehydration. Repeat pending. Discussed with Dr. Mello who accepts for observation. Lab Data: Labs: Lab Results 11/09/20 11/09/20 11/09/20 Range/Units 21:41 21:41 21:41 WBC 14.3 H (4.0-10.0) 10^3/ uL RBC 4.26 (4.1-5.3) 10^6/u L Hgb 12.9 (11.5-15.3) g/dL Hct 40.1 (37.0-47.0) % MCV 94.1 (81-99) fL MCH 30.3 (28.0-34.0) pg MCHC 32.2 (30.0-36.0) g/dL RDW 16.7 H (12.1-15.1) % Plt Count 265 (130-400) 10^3/c mm MPV 10.0 (7.4-10.4) fL Neut % (Auto) 60.1 % Lymph % (Auto) 28.8 % [place]ayette % (Auto) 8.1 % Eos % (Auto) 1.6 % Baso % (Auto) 0.8 % Neut # (Auto) 8.58 H (1.8-7.7) 10^3/u L Lymph # (Auto) 4.1 (0.8-4.8) 10^3/u L Fayette # (Auto) 1.2 H (0.2-0.9) 10^3/u L Eos # (Auto) 0.2 (0.0-0.8) 10^3/u L Baso # (Auto) 0.1 (0.0-0.1) 10^3/u L Nucleated RBC % (a uto) 0 % Nucleated RBCs # 0.0 /100WBC Sodium 141 (136-145) mmol/L Potassium 4.1 (3.5-5.1) mmol/L Chloride 106 (98-107) mmol/L Carbon Dioxide 22 (22-29) mmol/L Anion Gap 17.1 (5-19) BUN 30 H (6-20) mg/dL Creatinine 0.8 (0.5-0.9) mg/dL GFR Calculation 75.3 L (90-130) mL/min Glucose 84 (65-115) mg/dL Calculated Osmolal ity 297 H (285-295) mOsm/k g Lactate (0.5-2.2) mmol/L Calcium 8.5 (8.5-10.5) mg/dL Total Bilirubin 0.2 (0.15-1.2) mg/dL AST 10 (0-32) U/L ALT 12 (0-33) U/L Alkaline Phosphata se 110 H (35-105) IU/L Troponin T Baselin e 6 (0-10) ng/L Total Protein 5.6 L (6.6-8.7) g/dL Albumin 4.1 (3.5-5.2) g/dL Globulin 1.5 (1.3-4.6) g/dL Lipase 34 (13-60) U/L Urine Color (Yellow) Urine Appearance (CLEAR) Urine pH (5-7) Ur Specific Gravit y (1.005-1.030) Urine Protein (Negative) Urine Glucose (UA) (Normal) Urine Ketones (Negative) Urine Blood (Negative) Urine Nitrate (Negative) Urine Bilirubin (Negative) Urine Urobilinogen (Negative) mg/dL Ur Leukocyte Stephanie ase (Negative) 11/09/20 11/09/20 Range/Units 21:41 22:05 WBC (4.0-10.0) 10^3/ uL RBC (4.1-5.3) 10^6/u L Hgb (11.5-15.3) g/dL Hct (37.0-47.0) % MCV (81-99) fL MCH (28.0-34.0) pg MCHC (30.0-36.0) g/dL RDW (12.1-15.1) % Plt Count (130-400) 10^3/c mm MPV (7.4-10.4) fL Neut % (Auto) % Lymph % (Auto) % [place] % (Auto) % Eos % (Auto) % Baso % (Auto) % Neut # (Auto) (1.8-7.7) 10^3/u L Lymph # (Auto) (0.8-4.8) 10^3/u L [place] # (Auto) (0.2-0.9) 10^3/u L Eos # (Auto) (0.0-0.8) 10^3/u L Baso # (Auto) (0.0-0.1) 10^3/u L Nucleated RBC % (a uto) % Nucleated RBCs # /100WBC Sodium (136-145) mmol/L Potassium (3.5-5.1) mmol/L Chloride (98-107) mmol/L Carbon Dioxide (22-29) mmol/L Anion Gap (5-19) BUN (6-20) mg/dL Creatinine (0.5-0.9) mg/dL GFR Calculation (90-130) mL/min Glucose (65-115) mg/dL Calculated Osmolal ity (285-295) mOsm/k g Lactate 6.4 H* (0.5-2.2) mmol/L Calcium (8.5-10.5) mg/dL Total Bilirubin (0.15-1.2) mg/dL AST (0-32) U/L ALT (0-33) U/L Alkaline Phosphata se (35-105) IU/L Troponin T Baselin e (0-10) ng/L Total Protein (6.6-8.7) g/dL Albumin (3.5-5.2) g/dL Globulin (1.3-4.6) g/dL Lipase (13-60) U/L Urine Color Yellow (Yellow) Urine Appearance Clear (CLEAR) Urine pH 5 (5-7) Ur Specific Gravit y 1.020 (1.005-1.030) Urine Protein Neg (Negative) Urine Glucose (UA) Norm (Normal) Urine Ketones Negative (Negative) Urine Blood Neg (Negative) Urine Nitrate Negative (Negative) Urine Bilirubin Neg (Negative) Urine Urobilinogen Norm (Negative) mg/dL Ur Leukocyte Stephanie ase Negative (Negative) Discharge Plan Discharge Patient Disposition: Placed in Observation Clinical Impression: Abdominal pain, Increased lactic acid level Coding Level of Care Code ED Glaze Handler for Shellie Guallpa
[2020-11-09] MEDS: HYDROmorphone 1 mg/mL INJ 1 mL 0.5 MG IVP (23:50)
[2020-11-09 23:54] VITALS: BP 108/60; PULSE 70; O2SAT 98
[2020-11-10] VITALS (10 sets, daily range): BP systolic 110–135; BP diastolic 54–84; PULSE 60–88; RESP 16–21; TEMP 36.6–37.1; O2SAT 94–99
[2020-11-10] MEDS: dextrose 5%-sod chloride 0.45% 1,000 ML 75 ML IV ×2 (00:56→20:03)
[2020-11-10 01:06] LABS: Basophils # 0.1 10^3/uL (0.0-0.1); Basophils % 0.9 %; Eosinophils # 0.2 10^3/uL (0.0-0.8); Eosinophils % 1.4 %; Hematocrit 40.4 % (37.0-47.0); Hemoglobin 12.6 g/dL (11.5-15.3); Lymphocytes # 4.1 10^3/uL (0.8-4.8); Mean Corpuscular HGB Conc 31.2 g/dL (30.0-36.0); Mean Corpuscular Hemoglobin 30.6 pg (28.0-34.0); Mean Corpuscular Volume 98.1 fL (81-99); Mean Platelet Volume 10.2 fL (7.4-10.4); Monocytes # 0.9 10^3/uL (0.2-0.9); Monocytes % 8.2 %; Neutrophils # 6.03 10^3/uL (1.8-7.7); Neutrophils % 52.9 %; Nucleated Red Blood Cells % 0 %; Platelet Count 218 10^3/cmm (130-400); Red Blood Count 4.12 10^6/uL (4.1-5.3); Red Cell Distribution Width 16.7 % (12.1-15.1); White Blood Count 11.4 10^3/uL (4.0-10.0)
[2020-11-10 01:28] LABS: Anion Gap 13.2 (5-19); Blood Urea Nitrogen 34 mg/dL (6-20); Calcium 7.8 mg/dL (8.5-10.5); Carbon Dioxide 23 mmol/L (22-29); Chloride 107 mmol/L (98-107); Glomerular Filtration Rate 87.5 mL/min (90-130); Glucose 87 mg/dL (65-115); Lactic Sepsis W/Reflex 0.9 mmol/L (0.5-2.2); Osmolality Calculated 295 mOsm/kg (285-295); Potassium 4.2 mmol/L (3.5-5.1); Sodium 139 mmol/L (136-145)
[2020-11-10] MEDS: ondansetron 2 mg/ML SDV 2 mL 4 MG IVP ×2 (03:36→21:09)
[2020-11-10] MEDS: HYDROmorphone 1 mg/mL INJ 1 mL 0.5 MG IVP ×3 (03:37→18:38)
[2020-11-10] MEDS: lamoTRIgine 100 mg Tablet 200 MG PO (06:14)
[2020-11-10] MEDS: sucralfate 1 gm/10 mL Oral Liq UDC PO (08:48)
[2020-11-10] MEDS: pantoprazole DR 40 mg Tablet PO (08:48)
--- NOTE | 2020-11-10 10:26 | PC.CHAP ---
Pastoral Care Encounter/Spiritual Assessment Type of Contact [] Declined logging truck driver visit [] Patient/Family/Request visit [] Outpatient visit [] Follow-up visit [] Physician referral [] Code/Alert [x] Routine visit [] Staff referral [] Actively dying [] Patient sleeping [] Family support [] [] Out of room [] Palliative care [] [] Receiving care in room [] Pre-surgical visit [] Trauma [] Long length of stay [] ICU visit [] Other: Relational/Emotional Strength [x] Patient feels connected with others/family/visitors/staff [] Distress [] Loneliness/isolation [] Abandonment Spirituality of Patient [x] Person of Kate [x] Attends Jainism of their Kate [x] Believes in Prayer [x] Reads Bible or Confucianism materials [] There are Spiritual issues to be addressed Environmental Protection Specialist Interventions [] Prayer [] Active listening [] Non-anxious presence [] Spiritual/emotional support [] Crisis/trauma care [] Spiritual counseling [] Bereavement support [] Provided bereavement packet [x] Provided Bible/devotional materials [] Provided toy/stuffed animal, coloring book to patient or family member [] Provided Communion [] Anointing/[place] [] Salvation [x] Completed spiritual assessment [] Other: Impact on Illness or Injury [] Angry [] Fearful [] Anxious [] Often cries [] Exhaustion [] Unable to work [] Unable to attend spiritism [] Unable to walk/stand [] Unable to read [] Unable to drive [] Unable to eat/drink [] Unable to sleep [] Unable to be with family [] Patient intubated [] Other: Summary p[atient feeling better Time spent with patient 10 min
--- NOTE | 2020-11-10 14:22 | P.PN_ITS ---
Subjective Subjective: Interval history: admitted overnight for nausea vomiting and abdominal pain symptoms better reports having feeling of food being stuck Vitals/I&O/Wt Last Vital Signs Temp 98.2 F 11/10/20 11:03 Pulse 66 11/10/20 11:03 Resp 18 11/10/20 11:08 BP 117/54 11/10/20 11:03 Pulse Ox 94 11/10/20 11:08 11/09/20 11/10/20 11/10/20 22:59 06:59 14:59 Intake Total 1240 / 1240 1450 / 1450 Balance 1240 / 1240 1450 / 1450 Weight last 48 hrs Weight 195 lb Physical Exam Const: COMMON NORMALS: no acute distress and patient oriented x3 Resp: COMMON NORMALS: normal respiratory effort and No retractions OTHER: wheeze Cardio: COMMON NORMALS: regular rate and regular rhythm RATE: regular rate RHYTHM: regular rhythm GI: COMMON NORMALS: Soft to palpation PALPATION: Yes Soft to palpation and Yes Tenderness to palpation present (GI) Extremity: COMMON NORMALS: normal to inspection and full ROM Neuro: COMMON NORMALS: patient oriented x3 and moves all extremities Data : 11/10/20 01:01 11/10/20 01:01 A&P Assessment and plan (1) Abdominal pain: Status: Acute (2) COPD (chronic obstructive pulmonary disease): Status: Chronic Qualifiers: COPD type: chronic bronchitis Chronic bronchitis type: unspecified Qualified Code(s): J42 - Unspecified chronic bronchitis (3) Dysphagia: Status: Acute Qualifiers: Dysphagia type: unspecified Qualified Code(s): R13.10 - Dysphagia, unspecified Additional A&P Information #abdominal pain #esophageal stricture #intractable nausea and vomiting #schizoaffective disorder #copd 1. continue PRN analgesics, antiemetics 2. CLD 3. barium swallow, surgery consult 4. continue home medications for chronic conditions Attestations Medical Necessity Statement*: Latesha Wilhelm's hospital stay will require greater than 2 midnights for nausea Coding Level of Care Code Acute Sales Agent Food Vending Service for Chg Fwd Diagnoses Abdominal pain R10.9 COPD (chronic obstructive pulmonary disease) J42 COPD type: chronic bronchitis Chronic bronchitis type: unspecified Dysphagia R13.10 Dysphagia type: unspecified
[2020-11-11] VITALS (7 sets, daily range): BP systolic 107–122; BP diastolic 64–72; PULSE 54–75; RESP 17–18; TEMP 36.6–36.9; O2SAT 91–98
[2020-11-11] MEDS: HYDROmorphone 1 mg/mL INJ 1 mL 0.5 MG IVP ×2 (00:40→09:03)
[2020-11-11] MEDS: lamoTRIgine 100 mg Tablet 200 MG PO (05:57)
--- NOTE | 2020-11-11 08:00 | FL_ITS ---
WS: [id number] Exam: [place] barium swallow [id number] Date/Time of Exam: 11/11/2020 8:30 AM Reason For Exam: ORAL DYSPHASIA Fluoroscopy time: 1.0 minutes Swallowing function at the level of the oropharynx was normal. There was no aspiration. The esophagus is smooth in contour. No evidence of stricture or mass. No hiatal hernia or gastroesophageal reflux. The the GE junction is widely patent. The esophagus is not displaced. Normal esophageal motility. FL/FL barium swallow [id number] IMPRESSION: 1. Normal esophagram. No stricture, mass or motility disorder identified. No re flux.
[2020-11-11] MEDS: pantoprazole DR 40 mg Tablet PO (09:02)
--- NOTE | 2020-11-11 09:55 | PC.CHAP ---
Pastoral Care Encounter/Spiritual Assessment Type of Contact [] Declined cotton classer aide visit [] Patient/Family/Request visit [] Outpatient visit [] Follow-up visit [] Physician referral [] Code/Alert [x] Routine visit [] Staff referral [] Actively dying [] Patient sleeping [] Family support [] [x] Out of room [] Palliative care [] [] Receiving care in room [] Pre-surgical visit [] Trauma [] Long length of stay [] ICU visit [] Other: Relational/Emotional Strength [] Patient feels connected with others/family/visitors/staff [] Distress [] Loneliness/isolation [] Abandonment Spirituality of Patient [] Person of Kate [] Attends Hinduism of their Kate [] Believes in Prayer [] Reads Bible or Zoroastrian materials [] There are Spiritual issues to be addressed Disability Liaison Officer Interventions [] Prayer [] Active listening [] Non-anxious presence [] Spiritual/emotional support [] Crisis/trauma care [] Spiritual counseling [] Bereavement support [] Provided bereavement packet [] Provided Bible/devotional materials [] Provided toy/stuffed animal, coloring book to patient or family member [] Provided Communion [] Anointing/[place] [] Salvation [] Completed spiritual assessment [] Other: Impact on Illness or Injury [] Angry [] Fearful [] Anxious [] Often cries [] Exhaustion [] Unable to work [] Unable to attend alevism [] Unable to walk/stand [] Unable to read [] Unable to drive [] Unable to eat/drink [] Unable to sleep [] Unable to be with family [] Patient intubated [] Other: Summary Time spent with patient
[2020-11-11 11:23] LABS: Basophils # 0.1 10^3/uL (0.0-0.1); Basophils % 0.7 %; Eosinophils # 0.1 10^3/uL (0.0-0.8); Hematocrit 45.8 % (37.0-47.0); Hemoglobin 14.9 g/dL (11.5-15.3); Lymphocytes # 2.3 10^3/uL (0.8-4.8); Mean Corpuscular HGB Conc 32.5 g/dL (30.0-36.0); Mean Corpuscular Hemoglobin 30.2 pg (28.0-34.0); Mean Corpuscular Volume 92.9 fL (81-99); Mean Platelet Volume 10.6 fL (7.4-10.4); Monocytes # 1.1 10^3/uL (0.2-0.9); Neutrophils # 8.45 10^3/uL (1.8-7.7); Neutrophils % 69.6 %; Nucleated Red Blood Cells % 0 %; Platelet Count 220 10^3/cmm (130-400); Red Blood Count 4.93 10^6/uL (4.1-5.3); White Blood Count 12.1 10^3/uL (4.0-10.0)
--- NOTE | 2020-11-11 11:54 | P.DS_ITS ---
Discharge Providers Date of Admission: 11/10/20 15:36 Date of Discharge: November 11, 2020 Attending Provider at Admission: Frances Mello MD Attending Provider at Discharge: Deric Humphrey MD Primary Care Provider: AMANDEEP Barclay Diagnoses at Discharge Discharge Diagnosis (1) Abdominal pain: Status: Acute (2) COPD (chronic obstructive pulmonary disease): Status: Chronic Qualifiers: COPD type: chronic bronchitis Chronic bronchitis type: unspecified Qualified Code(s): J42 - Unspecified chronic bronchitis (3) Dysphagia: Status: Acute Qualifiers: Dysphagia type: unspecified Qualified Code(s): R13.10 - Dysphagia, unspecified Reason for Visit Reason for Visit: ABDOMINAL PAIN 95870 Hospital Course Hospital Course This is a 55-year-old female with past medical history of schizoaffective disorder, esophageal strictures, COPD presented to the emergency room with complaints of abdominal pain. She received antiemetics. She was placed n.p.o. clear liquid diet this was advanced. She had a modified barium swallow. She did not have any new strictures. She was tolerating her diet. She was discharged home. A prescription for Carafate was added a small course of pain medications was also added. She was recommended to follow-up with her auto air conditioning installer as outpatient. She may consider having monitoring EGD but s he will discuss this with her auto air conditioning installer. Physical Exam Const: COMMON NORMALS: no acute distress and patient oriented x3 Resp: COMMON NORMALS: normal respiratory effort and No retractions OTHER: wheeze Cardio: COMMON NORMALS: regular rate and regular rhythm RATE: regular rate RHYTHM: regular rhythm GI: COMMON NORMALS: Soft to palpation PALPATION: Yes Soft to palpation and Yes Tenderness to palpation present (GI) Extremity: COMMON NORMALS: normal to inspection and full ROM Neuro: COMMON NORMALS: patient oriented x3 and moves all extremities Discharge Data Data Completed and Pending: Completed Studies During Hospitalization Category Date Time Status CT abdomen pelvis w con* [id number] Stat Cat Scan 11/09/20 21:42 Completed [place] barium swallow [id number] Routine Exams 11/11/20 08:00 Completed XR chest 1V mary ble [id number] Stat Exams 11/09/20 23:03 Completed Pending at discharge Category Date Time Status Comprehensive Met abolic Panel Routi ne Lab 11/11/20 11:25 Ordered Labs from last 24 hours 11/11/20 11/11/20 10:32 10:32 WBC 12.1 H RBC 4.93 Hgb 14.9 Hct 45.8 MCV 92.9 MCH 30.2 MCHC 32.5 RDW 16.0 H Plt Count 220 MPV 10.6 H Neut % (Auto) 69.6 Lymph % (Auto) 19.0 [place] % (Auto) 9.0 Eos % (Auto) 1.0 Baso % (Auto) 0.7 Neut # (Auto) 8.45 H Lymph # (Auto) 2.3 [place] # (Auto) 1.1 H Eos # (Auto) 0.1 Baso # (Auto) 0.1 Nucleated RBC % (a uto) 0 Nucleated RBCs # 0.0 Sodium Cancelled Potassium Cancelled Chloride Cancelled Carbon Dioxide Cancelled Anion Gap Cancelled BUN Cancelled Creatinine Cancelled GFR Calculation Cancelled Glucose Cancelled Calculated Osmolal ity Cancelled Calcium Cancelled Total Bilirubin Cancelled AST Cancelled ALT Cancelled Alkaline Phosphata se Cancelled Total Protein Cancelled Albumin Cancelled Globulin Cancelled Vitals: Last Vital Signs Temp 98.3 F 11/11/20 11:22 Pulse 75 11/11/20 11:22 Resp 17 11/11/20 11:22 BP 112/72 11/11/20 11:22 Pulse Ox 97 11/11/20 11:22 Discharge Plan Discharge Patient Disposition: Home Condition: Stable Prescriptions: New Carafate 1 gram tablet 1 g PO Q6H Qty: 60 RF: 0 hydrocodone-acetaminophen 7.5-325 mg tablet 1 tab PO Q6H PRN (Reason: pain) Qty: 14 RF: 0 Continued olanzapine 5 mg tablet 5 mg PO .HS Qty: 30 RF: 1 trazodone 300 mg tablet 300 mg PO BEDTIME@2100 Qty: 30 RF: 1 lorazepam 0.5 mg tablet 0.5 mg PO DAILY PRN (Reason: Anxiety) 30 Days Qty: 30 RF: 1 Benefiber Healthy Shape 5 gram/7.4 gram Powder 5 g PO BID@0600,1800 RF: 0 lamotrigine 200 mg tablet 200 mg PO DAILY@0600 RF: 0 Breo Ellipta 100-25 mcg/dose blister with device 1 inh inhalation DAILY@0600 RF: 0 Ingrezza 80 mg capsule 80 mg PO DAILY@0600 RF: 0 escitalopram oxalate 10 mg tablet 10 mg PO DAILY Qty: 30 RF: 0 acetaminophen [Tylenol Arthritis Pain] 650 mg Tablet Extended Release 1,000 mg PO Q6H PRN (Reason: Pain) RF: 0 ondansetron HCl [Zofran] 4 mg tablet 4 mg PO QID PRN (Reason: nausea and vomiting) Qty: 14 RF: 0 pantoprazole 40 mg tablet,delayed release (DR/EC) 40 mg PO DAILY@0800 Qty: 30 RF: 0 hydroxyzine pamoate 50 mg capsule 50 mg PO TID PRN (Reason: Anxiety) RF: 0 albuterol sulfate 90 mcg/actuation HFA aerosol inhaler 2 puff inhalation Q6H PRN (Reason: shortness of breath or wheezing) RF: 0 ipratropium-albuterol 0.5 mg-3 mg(2.5 mg base)/3 mL solution for nebulization 3 ml inhalation Q4H PRN (Reason: Shortness Of Breath Or Wheezing) RF: 0 hydroxyzine pamoate 100 mg Capsule 100 mg PO BEDTIME PRN (Reason: Anxiety) RF: 0 Discharge Orders: Discharge Order (Routine); Ordered 11/11/20 Ordered By: Deric Humphrey Referrals: [facility] [Provider Group] - 4-7 days ([facility] established) Dara Tavera FNP [Primary Care Provider] - 12/01/20 9:00 am Discharge Diet: Advance as tolerated Discharge Activity: Resume usual activity Patient Instructions: Sucralfate (By mouth), Hydrocodone/Acetaminophen (By mouth), Chronic Obstructive Pulmonary Disease (DC), Acute Abdominal Pain (DC), Chronic Dysphagia (DC), Opioid Safety Activity Restrictions/Additional Instructions: do not drive or operate heavy equipment while taking pain medications Discharge Attestations Time Spent in Discharge Care*: less than 30 min Status at Discharge: Cognitive status at discharge: cognitively intact , Behavioral status at discharge: cooperative , Quality Metrics Clinical Quality Measures During this hospital stay, did patient experience: None Coding Level of Care Code Acute Chg FW DC note Diagnoses Abdominal pain R10.9 COPD (chronic obstructive pulmonary disease) J42 COPD type: chronic bronchitis Chronic bronchitis type: unspecified Dysphagia R13.10 Dysphagia type: unspecified
--- NOTE | 2020-11-13 15:07 | PC.RESP ---
Smoking Cessation and Pulmonary rehab information sent to patient.
== END 2020-11-11 16:20 | disposition home or self-care (01) | DRG 392 ==
LOC: ER 23:27 → MEDSURG 11-10
PROVIDERS: Admitting Provider Internal Medicine; Emergency Provider Family Medicine; PCP Registered Nurse; Visit Provider Internal Medicine
DX: R10.9 Unspecified abdominal pain (principal); E87.2 Acidosis; F25.0 Schizoaffective disorder, bipolar type; F60.3 Borderline personality disorder; K22.2 Esophageal obstruction; E86.0 Dehydration; Z87.442 Personal history of urinary calculi; F41.9 Anxiety disorder, unspecified; G89.29 Other chronic pain; M54.9 Dorsalgia, unspecified; K29.50 Unspecified chronic gastritis without bleeding; K21.9 Gastro-esophageal reflux disease without esophagitis; N31.9 Neuromuscular dysfunction of bladder, unspecified; N39.41 Urge incontinence; F17.210 Nicotine dependence, cigarettes, uncomplicated; R13.10 Dysphagia, unspecified; J44.9 Chronic obstructive pulmonary disease, unspecified
CPT/HCPCS: 36415; 71045; 74177; 74220; 80048; 80053; 81003; 83605; 83690; 84484; 85025; 93005; 96361; 96374; 96375; 99285; G0378; J1170; J2270; J2405; J7030; J7799; Q9967

== ENCOUNTER 2020-11-25 13:33 | Emergency (ER) | payer MEDICARE, MEDICAID, SELFPAY ==
[2020-11-25 13:39] VITALS: BP 93/62; PULSE 70; RESP 16; TEMP 36.7; O2SAT 94; BMI 32.8
--- NOTE | 2020-11-25 13:42 | XR_ITS ---
WS: [id number] Portable AP upright chest, 11/25/2020 Clinical Data: dyspnea Comparison: Portable chest, 11/09/2020. Findings: No nodules, masses or effusions are seen. The paraspinal density overlying T7 on the previo us study is not evident on the current exam. The heart is normal. The pulmonary vascularity is not in creased. No pneumonia or pneumothorax is seen. Monitor leads on the chest wall. XR/XR chest 1V portable [id number] Impression: Negative chest.
--- NOTE | 2020-11-25 13:43 | ECG_ITS ---
[facility] Test Date: 2020-11-25 Pat Name: Latesha Wilhelm Department: Room: Gender: Female Senior Architect: : 1965 Requested By: Bryant River Order Number: [id number] Alice MD: Freida Sampson M.D. Measurements Intervals [place] Rate: 69 P: 51 ID: [id number] QRS: 37 QRSD: 92 T: 49 QT: 426 QTc: 458 Interpretive Statements SINUS RHYTHM Compared to ECG 11/09/2020 21:46:49 No significant changes Electronically Signed On 11-25-2020 16:25:58 CDT by Freida Sampson M.D. [id number]
--- NOTE | 2020-11-25 14:04 | W.ED.CHESTPA ---
HPI - Chest Pain General: Chief Complaint: Chest Pain Stated Complaint: CHEST PAIN, N/V Time Seen by Provider: 11/25/20 13:38 History of Present Illness: HPI narrative: 55-year-old female presents emergency room with complaint of chest pain. Patient is previously multiple episodes of complaints of chest pain. She had a sestamibi stress test in 2019 that was negative. She was recently hospitalized at psychiatric unit in [facility] she had some chest discomfort her course of work-up tells me that she had a positive stress test with a normal angiogram. Today she began having chest pain and she is worried there is something else wrong with her heart. MD complaint: chest pain Onset (ago): hour(s) Timing of current episode: episodic Prior episodes: Yes Onset: during rest Associated symptoms: Deny abdominal pain, dyspnea, fever(s), nausea or vomiting Review of Systems Const: Denies: fever(s), chills, body aches, change in appetite, fatigue or malaise ENMT: Denies: throat pain, ear or mastoid pain, nasal discharge or nasal congestion Card: Denies: chest pain, edema, dyspnea on exertion or orthopnea Resp: Denies: dyspnea, productive cough or non-productive cough GI: Denies: abdominal pain, nausea, vomiting, hematemesis, coffee ground emesis, diarrhea, constipation, bloating, hematochezia or melena : Denies: flank pain, difficulty voiding, dysuria, urinary frequency or urinary urgency Skin/Breast: Denies: rash or pruritus PFSH ED PFSH: Medical History Bladder stone Borderline personality disorder Chronic anxiety Chronic back pain greater than 3 months duration Chronic gastritis without bleeding COPD (chronic obstructive pulmonary disease) Cystitis cystica Dysphagia Esophageal stricture Foreign body in bladder GERD without esophagitis Neurogenic bladder Restrictive lung disease Schizoaffective disorder, bipolar type Urgency incontinence Surgical History H/O bladder repair surgery MESH REPAIR H/O colonoscopy with polypectomy H/O esophagogastroduodenoscopy (09/21/20) H/O: hysterectomy History of appendectomy History of breast biopsy History of foot surgery sx in 2009. Screws placed by Dr. Don. History of ureter stent Hx of cholecystectomy S/P bronchoscopy with biopsy Family History Mother No problems noted. Father No problems noted. Other Asthma Cancer Diabetes Heart disease Social History Smoking and tobacco status: current every day smoker cigarettes Years cigarettes smoked: 20 [ Other cigarette details: Hx of 1 PPD x 20 Years ] Quit status (tobacco): considering quitting Second hand smoke exposure: Yes Smoking risk assessment/counseling performed?: No Alcohol intake: never Counseling given: No Counseling given: No Lives independently: Yes Household members: spouse Marital status: Number of children: 3 Current occupational status: disabled History of recent travel: No Current gender identity: Female Female Reproductive History: Date of last menstrual period: 06/19/95 Physical Exam Const: COMMON NORMALS: no acute distress GENERAL APPEARANCE: cooperative and comfortable ORIENTATION/CONSCIOUSNESS: Yes awake, Yes oriented to person, Yes oriented to place and Yes oriented to time HENMT: COMMON NORMALS: normocephalic, atraumatic, hearing grossly normal bilaterally and external ears normal HEAD & SCALP: normocephalic and atraumatic EXTERNAL EAR: Yes external ears normal Neck/C-Spine: COMMON NORMALS: no JVD Resp: COMMON NORMALS: normal respiratory effort, No retractions, No use of accessory muscles and clear to auscultation bilaterally AUSCULTATION: clear to auscultation bilaterally Cardio: COMMON NORMALS: no JVD, regular rate, regular rhythm and No murmurs present (Cardio) RATE: regular rate RHYTHM: regular rhythm GI: COMMON NORMALS: Soft to palpation and No hepatosplenomegaly present AUSCULTATION: Yes normoactive bowel sounds PALPATION: Yes Soft to palpation, No Tenderness to palpation present (GI), No Guarding due to palpation present (GI) and Yes No hepatosplenomegaly present Extremity: COMMON NORMALS: normal to inspection, capillary refill normal, no clubbing, cyanosis or edema, no calf tenderness and no pedal edema Neuro: SENSORIUM/ORIENTATION: Yes oriented to person, Yes oriented to place and Yes oriented to time Skin: COMMON NORMALS: no rashes or lesions noted GENERAL SKIN EXAM: no rashes or lesions noted Course Vital Signs: Vital signs: Vital Signs Temperature 98.1 F 11/25/20 13:39 Pulse Rate 80 11/25/20 17:00 Respiratory Rate 16 11/25/20 13:39 Blood Pressure 132/84 11/25/20 17:00 Pulse Oximetry 97 11/25/20 17:00 MDM - Chest Pain MDM Narrative: Medical decision making narrative: Patient presents complaining of chest pain she very recently had an angiogram we got a copy of the angiogram from [place] where it was done there is no coronary disease I recommended noncardiac work-up serial enzymes and EKGs here are unremarkable discharge home start on pantoprazole follow-up with primary care Lab Data: Labs: Lab Results 11/25/20 11/25/20 11/25/20 Range/Units 14:10 14:10 14:10 WBC 9.4 (4.0-10.0) 10^3/ uL RBC 4.14 (4.1-5.3) 10^6/u L Hgb 12.4 (11.5-15.3) g/dL Hct 38.1 (37.0-47.0) % MCV 92.0 (81-99) fL MCH 30.0 (28.0-34.0) pg MCHC 32.5 (30.0-36.0) g/dL RDW 15.6 H (12.1-15.1) % Plt Count 245 (130-400) 10^3/c mm MPV 10.4 (7.4-10.4) fL Neut % (Auto) 66.4 % Lymph % (Auto) 23.6 % Ray % (Auto) 7.8 % Eos % (Auto) 0.5 % Baso % (Auto) 1.4 % Neut # (Auto) 6.21 (1.8-7.7) 10^3/u L Lymph # (Auto) 2.2 (0.8-4.8) 10^3/u L Ray # (Auto) 0.7 (0.2-0.9) 10^3/u L Eos # (Auto) 0.1 (0.0-0.8) 10^3/u L Baso # (Auto) 0.1 (0.0-0.1) 10^3/u L Nucleated RBC % (a uto) 0 % Nucleated RBCs # 0.0 /100WBC Sodium 138 (136-145) mmol/L Potassium 4.5 (3.5-5.1) mmol/L Chloride 105 (98-107) mmol/L Carbon Dioxide 20 L (22-29) mmol/L Anion Gap 17.5 (5-19) BUN 15 (6-20) mg/dL Creatinine 0.8 (0.5-0.9) mg/dL GFR Calculation 75.0 L (90-130) mL/min Glucose 108 (65-115) mg/dL Calculated Osmolal ity 287 (285-295) mOsm/k g Calcium 8.5 (8.5-10.5) mg/dL Total Bilirubin 0.2 (0.15-1.2) mg/dL AST 13 (0-32) U/L ALT 10 (0-33) U/L Alkaline Phosphata se 111 H (35-105) IU/L Troponin T Baselin e 6 (0-10) ng/L Troponin T 120 Min [place] (0-10) ng/L Delta Troponin T (0-10) ABS# Total Protein 5.6 L (6.6-8.7) g/dL Albumin 4.0 (3.5-5.2) g/dL Globulin 1.6 (1.3-4.6) g/dL 11/25/20 Range/Units 16:30 WBC (4.0-10.0) 10^3/ uL RBC (4.1-5.3) 10^6/u L Hgb (11.5-15.3) g/dL Hct (37.0-47.0) % MCV (81-99) fL MCH (28.0-34.0) pg MCHC (30.0-36.0) g/dL RDW (12.1-15.1) % Plt Count (130-400) 10^3/c mm MPV (7.4-10.4) fL Neut % (Auto) % Lymph % (Auto) % Ray % (Auto) % Eos % (Auto) % Baso % (Auto) % Neut # (Auto) (1.8-7.7) 10^3/u L Lymph # (Auto) (0.8-4.8) 10^3/u L Ray # (Auto) (0.2-0.9) 10^3/u L Eos # (Auto) (0.0-0.8) 10^3/u L Baso # (Auto) (0.0-0.1) 10^3/u L Nucleated RBC % (a uto) % Nucleated RBCs # /100WBC Sodium (136-145) mmol/L Potassium (3.5-5.1) mmol/L Chloride (98-107) mmol/L Carbon Dioxide (22-29) mmol/L Anion Gap (5-19) BUN (6-20) mg/dL Creatinine (0.5-0.9) mg/dL GFR Calculation (90-130) mL/min Glucose (65-115) mg/dL Calculated Osmolal ity (285-295) mOsm/k g Calcium (8.5-10.5) mg/dL Total Bilirubin (0.15-1.2) mg/dL AST (0-32) U/L ALT (0-33) U/L Alkaline Phosphata se (35-105) IU/L Troponin T Baselin e (0-10) ng/L Troponin T 120 Min [place] 6.00 (0-10) ng/L Delta Troponin T 0 (0-10) ABS# Total Protein (6.6-8.7) g/dL Albumin (3.5-5.2) g/dL Globulin (1.3-4.6) g/dL Discharge Plan Discharge Patient Disposition: Home Clinical Impression: Chest pain, non-cardiac Condition: Stable Prescriptions: New pantoprazole 40 mg tablet,delayed release (DR/EC) 40 mg PO BID 10 Days Qty: 20 RF: 0 No Action escitalopram oxalate 10 mg tablet 10 mg PO DAILY Qty: 30 RF: 0 hydroxyzine pamoate 50 mg capsule 50 mg PO TID PRN (Reason: Anxiety) Qty: 150 RF: 0 trazodone 300 mg tablet 300 mg PO BEDTIME@2100 Qty: 30 RF: 1 lorazepam 0.5 mg tablet 0.5 mg PO DAILY PRN (Reason: Anxiety) 30 Days Qty: 30 RF: 1 Ingrezza 80 mg capsule 80 mg PO DAILY@0600 Qty: 30 RF: 2 Benefiber Healthy Shape 5 gram/7.4 gram Powder 5 g PO BID@0600,1800 RF: 0 lamotrigine 200 mg tablet 200 mg PO DAILY@0600 RF: 0 Breo Ellipta 100-25 mcg/dose blister with device 1 inh inhalation DAILY@0600 RF: 0 olanzapine 5 mg tablet 5 mg PO BEDTIME RF: 0 acetaminophen [Tylenol Arthritis Pain] 650 mg Tablet Extended Release 1,000 mg PO Q6H PRN (Reason: Pain) RF: 0 ondansetron HCl [Zofran] 4 mg tablet 4 mg PO QID PRN (Reason: nausea and vomiting) Qty: 14 RF: 0 pantoprazole 40 mg tablet,delayed release (DR/EC) 40 mg PO DAILY@0800 Qty: 30 RF: 0 albuterol sulfate 90 mcg/actuation HFA aerosol inhaler 2 puff inhalation Q6H PRN (Reason: shortness of breath or wheezing) RF: 0 ipratropium-albuterol 0.5 mg-3 mg(2.5 mg base)/3 mL solution for nebulization 3 ml inhalation Q4H PRN (Reason: Shortness Of Breath Or Wheezing) RF: 0 sucralfate [Carafate] 1 gram tablet 1 g PO Q6H Qty: 60 RF: 0 hydrocodone-acetaminophen 7.5-325 mg tablet 1 tab PO Q6H PRN (Reason: pain) Qty: 14 RF: 0 Discharge Orders: Discharge ED (Routine); Ordered 11/25/20 Ordered By: Bryant Whitley Referrals: Dara Tavera FNP [Primary Care Provider] - Discharge Diet: Usual diet Discharge Activity: Resume usual activity Patient Instructions: Opioid Safety Coding Level of Care Code ED Media Sales Representative for Shellie Fwd Exam Comprehensive
[2020-11-25 14:18] LABS: Basophils # 0.1 10^3/uL (0.0-0.1); Basophils % 1.4 %; Eosinophils # 0.1 10^3/uL (0.0-0.8); Eosinophils % 0.5 %; Hematocrit 38.1 % (37.0-47.0); Hemoglobin 12.4 g/dL (11.5-15.3); Lymphocytes # 2.2 10^3/uL (0.8-4.8); Lymphocytes % 23.6 %; Mean Corpuscular HGB Conc 32.5 g/dL (30.0-36.0); Mean Platelet Volume 10.4 fL (7.4-10.4); Monocytes # 0.7 10^3/uL (0.2-0.9); Monocytes % 7.8 %; Neutrophils # 6.21 10^3/uL (1.8-7.7); Neutrophils % 66.4 %; Nucleated Red Blood Cells % 0 %; Platelet Count 245 10^3/cmm (130-400); Red Blood Count 4.14 10^6/uL (4.1-5.3); Red Cell Distribution Width 15.6 % (12.1-15.1); White Blood Count 9.4 10^3/uL (4.0-10.0)
[2020-11-25 14:41] LABS: Alanine Aminotransferase 10 U/L (0-33); Alkaline Phosphatase 111 IU/L (35-105); Blood Urea Nitrogen 15 mg/dL (6-20); Calcium 8.5 mg/dL (8.5-10.5); Carbon Dioxide 20 mmol/L (22-29); Chloride 105 mmol/L (98-107); Globulin 1.6 g/dL (1.3-4.6); Glucose 108 mg/dL (65-115); Osmolality Calculated 287 mOsm/kg (285-295); Sodium 138 mmol/L (136-145); Total Bilirubin 0.2 mg/dL (0.15-1.2); Total Protein 5.6 g/dL (6.6-8.7)
[2020-11-25 14:42] LABS: Anion Gap 17.5 (5-19); Aspartate Amino Transferase 13 U/L (0-32); Potassium 4.5 mmol/L (3.5-5.1)
[2020-11-25 14:44] LABS: Troponin(5th) Baseline 6 ng/L (0-10)
[2020-11-25 15:00] VITALS: BP 134/77; PULSE 69; O2SAT 93
[2020-11-25 15:30] VITALS: BP 97/52; PULSE 63; O2SAT 98
--- NOTE | 2020-11-25 15:43 | ECG_ITS ---
[facility] Test Date: 2020-11-25 Pat Name: Latesha Wilhelm Department: Room: Gender: Female Dehydrogenation Operator: : 1965 Requested By: Bryant River Order Number: [id number] Alice MD: Freida Sampson M.D. Measurements Intervals [place] Rate: 62 P: 53 MI: 158 QRS: 36 QRSD: 94 T: 53 QT: 440 QTc: 448 Interpretive Statements SINUS RHYTHM Compared to ECG 11/25/2020 14:39:31 No significant changes Electronically Signed On 11-25-2020 22:08:41 CDT by Freida Sampson M.D. [id number]
[2020-11-25 16:05] VITALS: BP 114/59; PULSE 79; O2SAT 99
[2020-11-25] MEDS: acetaminophen 325 mg Tablet 650 MG PO (16:16)
[2020-11-25] MEDS: lidocaine 2% viscous 15 ML, aluminum-mag hydrox-simethicon 30 ML, sucralfate oral liq 1 GM PO (16:20)
[2020-11-25 16:30] VITALS: BP 126/88; PULSE 80; O2SAT 98
[2020-11-25 17:00] VITALS: BP 132/84; PULSE 80; O2SAT 97
[2020-11-25 17:39] LABS: Troponin 5 2HR Delta 0 ABS# (0-10)
== END 2020-11-25 17:53 | disposition home or self-care (01) ==
PROVIDERS: Emergency Provider Family Medicine; PCP Registered Nurse
DX: R07.89 Other chest pain (principal); J44.9 Chronic obstructive pulmonary disease, unspecified; F17.210 Nicotine dependence, cigarettes, uncomplicated
CPT/HCPCS: 36415; 71045; 80053; 84484; 85025; 93005; 99284

== ENCOUNTER → 2020-11-26 07:38 | Outpatient (BNVA) | payer MEDICARE, MEDICAID, SELFPAY | PROVIDERS: PCP Registered Nurse; Visit Provider Nurse Practitioner | DX: F60.3 Borderline personality disorder (principal); F25.0 Schizoaffective disorder, bipolar type | CPT/HCPCS: 99214 ==

== ENCOUNTER 2020-12-31 22:00 | Emergency (ER) | payer MEDICARE, MEDICAID, SELFPAY ==
[2020-12-31 22:06] VITALS: BP 148/82; PULSE 98; RESP 22; TEMP 37.8; O2SAT 97; BMI 33.9
--- NOTE | 2020-12-31 22:11 | ECG_ITS ---
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 Measurements Intervals [place] Rate: 86 P: 48 TN: 149 QRS: 23 QRSD: 94 T: 36 QT: 370 QTc: 444 Interpretive Statements SINUS RHYTHM LOW QRS VOLTAGE IN PRECORDIAL LEADS [QRS DEFLECTION < 1.0 mV IN CHEST LEADS] Compared to ECG 11/25/2020 16:58:15 Low QRS voltage now present Electronically Signed On 12-31-2020 23:34:11 CDT by Severo Aly M.D. [id number]
--- NOTE | 2020-12-31 22:11 | XRR_ITS ---
PROCEDURE INFORMATION: Exam: XR Chest Exam date and time: 12/31/2020 10:11 PM Age: 55 years old Clinical indication: Shortness of breath; Additional info: SOB TECHNIQUE: Imaging protocol: XR of the chest. Views: 1 view. COMPARISON: CR XR chest 1V portable [id number] 11/25/2020 1:46 PM FINDINGS: The lungs are clear of infiltrate. There are no pleural effusions or pneumothorax. The heart size and pulmonary vascularity are normal. XR/XR chest 1V portable [id number] IMPRESSION: No active disease.
--- NOTE | 2020-12-31 22:15 | W.ED.SOB ---
HPI - SOB/Dyspnea General: Chief Complaint: Shortness of Breath/Dyspnea Stated Complaint: DIFF. BREATHING Time Seen by Provider: 12/31/20 22:08 Source: patient and EMS Mode of arrival: EMS Limitations: no limitations History of Present Illness: HPI Narrative: 55-year-old female who is very well-known to ER presents here from [facility] rehab. She states she was admitted there 2 days ago for opioid addiction. Patient is on oxygen at baseline 2 L and she states that she had forgot her oxygen. She states she has been having shortness of breath there without her oxygen. She has had a slight cough. Low-grade fevers. Denies any worsening improving factors. She denies any chest pain. Associated symptoms: Deny abdominal pain, chest pain, fever(s), nausea or vomiting Review of Systems Const: Denies: fever(s), chills, body aches or change in appetite Eyes: Denies: blurry vision or eye discomfort ENMT: Denies: throat pain or dental pain Card: Denies: chest pain Resp: Reports: dyspnea and non-productive cough GI: Denies: abdominal pain, nausea, vomiting or diarrhea : Denies: dysuria Musc: Denies: neck pain or back pain Skin/Breast: Denies: rash Neuro: Denies: headache(s) Psych: Denies: depression Wilbur/Lymph: Denies: easy bruising All/Imm: Denies: urticaria PFSH ED PFSH: Medical History Bladder stone Borderline personality disorder Chronic anxiety Chronic back pain greater than 3 months duration Chronic gastritis without bleeding COPD (chronic obstructive pulmonary disease) Cystitis cystica Dysphagia Esophageal stricture Foreign body in bladder GERD without esophagitis Neurogenic bladder Restrictive lung disease Schizoaffective disorder, bipolar type Urgency incontinence Surgical History H/O bladder repair surgery MESH REPAIR H/O colonoscopy with polypectomy H/O esophagogastroduodenoscopy (09/21/20) H/O: hysterectomy History of appendectomy History of breast biopsy History of foot surgery sx in 2009. Screws placed by Dr. Don. History of ureter stent Hx of cholecystectomy S/P bronchoscopy with biopsy Family History Mother No problems noted. Father No problems noted. Other Asthma Cancer Diabetes Heart disease Social History Smoking and tobacco status: current every day smoker cigarettes Years cigarettes smoked: 20 [ Other cigarette details: Hx of 1 PPD x 20 Years ] Quit status (tobacco): considering quitting Second hand smoke exposure: Yes Smoking risk assessment/counseling performed?: No Alcohol intake: never Counseling given: No Counseling given: No Lives independently: Yes Household members: spouse Marital status: Number of children: 3 Current occupational status: disabled History of recent travel: No Current gender identity: Female Female Reproductive History: Date of last menstrual period: 06/19/95 Physical Exam Const: COMMON NORMALS: no acute distress, patient oriented x3 and healthy appearing HENMT: COMMON NORMALS: normocephalic and atraumatic HEAD & SCALP: normocephalic and atraumatic Eye: COMMON NORMALS: Equal, round and reactive pupils present and EOMs intact bilaterally PUPIL: Yes Equal, round and reactive pupils present Neck/C-Spine: COMMON NORMALS: full ROM and supple Chest: COMMONS NORMALS: normal inspection of the chest and normal palpation of entire chest wall Resp: COMMON NORMALS: normal respiratory effort, No retractions, No use of accessory muscles and clear to auscultation bilaterally AUSCULTATION: clear to auscultation bilaterally Cardio: COMMON NORMALS: regular rate, regular rhythm and No murmurs present (Cardio) RATE: regular rate RHYTHM: regular rhythm GI: COMMON NORMALS: Normal to inspection, nondistended, normoactive bowel sounds present, Soft to palpation, non-tender and no masses PALPATION: Yes Soft to palpation Extremity: COMMON NORMALS: normal to inspection and full ROM Neuro: COMMON NORMALS: patient oriented x3, moves all extremities and no focal motor deficits Psych: COMMON NORMALS: mental status grossly normal, Normal thought process present and cooperative THOUGHT PROCESS: Normal thought process present Skin: COMMON NORMALS: no rashes or lesions noted and no wounds GENERAL SKIN EXAM: no rashes or lesions noted Course Vital Signs: Vital signs: Vital Signs Temperature 100.1 F H 12/31/20 22:06 Pulse Rate 81 12/31/20 22:57 Respiratory Rate 14 12/31/20 22:57 Blood Pressure 93/76 12/31/20 22:57 Pulse Oximetry 96 12/31/20 22:57 MDM - SOB/Dyspnea MDM Narrative: Medical decision making narrative: Patient presents here with dyspnea likely due to not having oxygen at rehab. Patient is well-appearing here in pulse ox is normal and her 2 L. X-ray shows no signs of pneumonia and her Covid is negative. Patient's is bringing her oxygen and she is stable for discharge back to [facility]. Lab Data: Labs: Lab Results 12/31/20 12/31/20 12/31/20 Range/Units 22:56 22:56 22:56 WBC 13.7 H (4.0-10.0) 10^3/ uL RBC 3.93 L (4.1-5.3) 10^6/u L Hgb 12.0 (11.5-15.3) g/dL Hct 41.8 (37.0-47.0) % MCV 106.4 H (81-99) fL MCH 30.5 (28.0-34.0) pg MCHC 28.7 L (30.0-36.0) g/dL RDW 15.0 (12.1-15.1) % Plt Count 167 (130-400) 10^3/c mm MPV 10.3 (7.4-10.4) fL Neut % (Auto) 74.9 % Lymph % (Auto) 11.2 % [place] % (Auto) 10.9 % Eos % (Auto) 2.1 % Baso % (Auto) 0.6 % Neut # (Auto) 10.25 H (1.8-7.7) 10^3/u L Lymph # (Auto) 1.5 (0.8-4.8) 10^3/u L [place] # (Auto) 1.5 H (0.2-0.9) 10^3/u L Eos # (Auto) 0.3 (0.0-0.8) 10^3/u L Baso # (Auto) 0.1 (0.0-0.1) 10^3/u L Nucleated RBC % (a uto) 0 % Nucleated RBCs # 0.0 /100WBC Sodium 128 L (136-145) mmol/L Potassium 4.6 (3.5-5.1) mmol/L Chloride 100 (98-107) mmol/L Carbon Dioxide 18 L (22-29) mmol/L Anion Gap 14.6 (5-19) BUN 14 (6-20) mg/dL Creatinine 0.8 (0.5-0.9) mg/dL GFR Calculation 75.0 L (90-130) mL/min Glucose 112 (65-115) mg/dL Calculated Osmolal ity 267 L (285-295) mOsm/k g Calcium 8.4 L (8.5-10.5) mg/dL Total Bilirubin 0.2 (0.15-1.2) mg/dL AST 28 (0-32) U/L ALT 13 (0-33) U/L Alkaline Phosphata se 120 H (35-105) IU/L NT-Pro-B Natriuret Pep 114 (0-125) pg/mL Total Protein 5.8 L (6.6-8.7) g/dL Albumin 3.5 (3.5-5.2) g/dL Globulin 2.3 (1.3-4.6) g/dL SARS-CoV-2 Ag (Rap id) Negative (Negative) Imaging Data^: CXR: Attestation: I personally reviewed and interpreted this imaging study as follows: My impression: no acute abnormality EKG Data^: EKG 1: Attestation: I personally reviewed and interpreted this EKG as follows: EKG Interpretation Date: 12/31/20 EKG interpretation time: 22:24 Interpretation: nsr hr [address] or t wave abnormalities qrs 94 qtc 413 Discharge Plan Discharge Patient Disposition: Home Clinical Impression: Shortness of breath Condition: Stable Prescriptions: No Action escitalopram oxalate 10 mg tablet 10 mg PO DAILY Qty: 30 RF: 0 hydroxyzine pamoate 50 mg capsule 50 mg PO TID PRN (Reason: Anxiety) Qty: 150 RF: 0 trazodone 300 mg tablet 300 mg PO BEDTIME@2100 Qty: 30 RF: 1 lorazepam 0.5 mg tablet 0.5 mg PO DAILY PRN (Reason: Anxiety) 30 Days Qty: 30 RF: 1 Ingrezza 80 mg capsule 80 mg PO DAILY@0600 Qty: 30 RF: 2 lamotrigine 200 mg tablet 200 mg PO DAILY@0600 Qty: 30 RF: 1 fluticasone propionate [Flonase Allergy Relief] 50 mcg/actuation spray,suspension 1 spray intranasal BID Qty: 16 RF: 0 Benefiber Healthy Shape 5 gram/7.4 gram Powder 5 g PO BID@0600,1800 RF: 0 Breo Ellipta 100-25 mcg/dose blister with device 1 inh inhalation DAILY@0600 RF: 0 olanzapine 5 mg tablet 5 mg PO BEDTIME RF: 0 acetaminophen [Tylenol Arthritis Pain] 650 mg Tablet Extended Release 1,000 mg PO Q6H PRN (Reason: Pain) RF: 0 ondansetron HCl [Zofran] 4 mg tablet 4 mg PO QID PRN (Reason: nausea and vomiting) Qty: 14 RF: 0 pantoprazole 40 mg tablet,delayed release (DR/EC) 40 mg PO DAILY@0800 Qty: 30 RF: 0 albuterol sulfate 90 mcg/actuation HFA aerosol inhaler 2 puff inhalation Q6H PRN (Reason: shortness of breath or wheezing) RF: 0 ipratropium-albuterol 0.5 mg-3 mg(2.5 mg base)/3 mL solution for nebulization 3 ml inhalation Q4H PRN (Reason: Shortness Of Breath Or Wheezing) RF: 0 sucralfate [Carafate] 1 gram tablet 1 g PO Q6H Qty: 60 RF: 0 hydrocodone-acetaminophen 7.5-325 mg tablet 1 tab PO Q6H PRN (Reason: pain) Qty: 14 RF: 0 Discharge Orders: Discharge ED (Routine); Ordered 01/01/21 Ordered By: Damien Urbina Referrals: Dara Tavera FNP [Primary Care Provider] - 1-3 days Discharge Diet: Advance as tolerated Discharge Activity: Resume usual activity Patient Instructions: Dyspnea (ED) Coding Level of Care Code ED [employer] Report Developer for [employer]iag Fwd Exam Comprehensive
[2020-12-31 22:57] VITALS: BP 93/76; PULSE 81; RESP 14; O2SAT 96
[2020-12-31 23:03] LABS: Basophils # 0.1 10^3/uL (0.0-0.1); Basophils % 0.6 %; Eosinophils # 0.3 10^3/uL (0.0-0.8); Eosinophils % 2.1 %; Hematocrit 41.8 % (37.0-47.0); Lymphocytes # 1.5 10^3/uL (0.8-4.8); Lymphocytes % 11.2 %; Mean Corpuscular HGB Conc 28.7 g/dL (30.0-36.0); Mean Corpuscular Hemoglobin 30.5 pg (28.0-34.0); Mean Corpuscular Volume 106.4 fL (81-99); Mean Platelet Volume 10.3 fL (7.4-10.4); Monocytes # 1.5 10^3/uL (0.2-0.9); Monocytes % 10.9 %; Neutrophils # 10.25 10^3/uL (1.8-7.7); Neutrophils % 74.9 %; Nucleated Red Blood Cells % 0 %; Platelet Count 167 10^3/cmm (130-400); Red Blood Count 3.93 10^6/uL (4.1-5.3); White Blood Count 13.7 10^3/uL (4.0-10.0)
[2020-12-31 23:27] LABS: SARS Covid-2 Antigen Negative (Negative)
[2020-12-31 23:40] LABS: Albumin Level 3.5 g/dL (3.5-5.2); Alkaline Phosphatase 120 IU/L (35-105); Blood Urea Nitrogen 14 mg/dL (6-20); Calcium 8.4 mg/dL (8.5-10.5); Carbon Dioxide 18 mmol/L (22-29); Chloride 100 mmol/L (98-107); Globulin 2.3 g/dL (1.3-4.6); Glucose 112 mg/dL (65-115); NT Pro B Type Natriuretic Pept 114 pg/mL (0-125); Osmolality Calculated 267 mOsm/kg (285-295); Sodium 128 mmol/L (136-145); Total Bilirubin 0.2 mg/dL (0.15-1.2); Total Protein 5.8 g/dL (6.6-8.7)
[2020-12-31 23:49] LABS: Alanine Aminotransferase 13 U/L (0-33); Anion Gap 14.6 (5-19); Aspartate Amino Transferase 28 U/L (0-32); Potassium 4.6 mmol/L (3.5-5.1)
[2021-01-01 00:38] VITALS: BP 147/80; PULSE 93; RESP 19; O2SAT 99
== END 2021-01-01 00:38 | disposition home or self-care (01) ==
PROVIDERS: Emergency Provider Emergency Medicine; PCP Registered Nurse
DX: R06.02 Shortness of breath (principal); J44.9 Chronic obstructive pulmonary disease, unspecified; F17.210 Nicotine dependence, cigarettes, uncomplicated; Z99.81 Dependence on supplemental oxygen; Z20.822 Contact with and (suspected) exposure to COVID-19
CPT/HCPCS: 71045; 80053; 83880; 85025; 87426; 93005; 99283

== ENCOUNTER 2021-01-03 05:50 | Emergency (ER) | payer MEDICARE, MEDICAID, SELFPAY ==
[2021-01-03 05:52] VITALS: BP 133/62; PULSE 94; RESP 18; TEMP 37.7; O2SAT 99; BMI 34.1
--- NOTE | 2021-01-03 06:01 | XRR_ITS ---
PROCEDURE INFORMATION: Exam: XR Chest Exam date and time: 01/03/2021 6:01 AM Age: 55 years old Clinical indication: Cough and shortness of breath TECHNIQUE: Imaging protocol: XR of the chest. Views: 1 view. COMPARISON: CR XR chest 1V portable [id number] 12/31/2020 10:09 PM FINDINGS: Lungs: Emphysematous change and interstitial disease. Pleural spaces: No pleural effusion. Heart/Mediastinum: No cardiomegaly. Bones/joints: Mild degenerative change. XR/XR chest 1V portable [id number] IMPRESSION: Emphysematous change and interstitial disease.
--- NOTE | 2021-01-03 06:05 | ED_ITS ---
HPI - SOB/Dyspnea General: Chief Complaint: Shortness of Breath/Dyspnea Stated Complaint: WEAKNESS Time Seen by Provider: 01/03/21 06:01 History of Present Illness: HPI Narrative: This patient is a 55-year-old female is well-known to the facility presents to the emergency department complaining of cough. Patient was seen in the emergency department here 2 days ago with subsequent was seen at [facility] yesterday and subsequently here [facility]. Patient has a low-grade temperature of 99.8. Patient has a long history of COPD and does take breathing treatments at home. Patient also wears home O2 at 2 L. Patient's pulse ox is at 98% on 2 L. Blood pressure 123/50. Patient states cough has been persistent. Patient was given the vaccine for Covid in September. Patient had a full medical screening exam 2 days ago negative for any acute findings. Patient apparently had an ambulance take her to [facility] and subsequently had a negative evaluation. Went home and called the ambulance to bring to this facility for further evaluation. Will do medical evaluation treat as needed MD elicited complaint: cough Pertinent past history: COPD Onset (ago): unknown Associated symptoms: Deny abdominal pain, chest pain, extremity pain, fever(s), lightheadedness, nausea, palpitations or vomiting Review of Systems General: Reports: 10 or more systems reviewed and unremarkable except in HPI and below Const: Denies: fever(s), chills, body aches or fatigue Eyes: Denies: change in vision or blurry vision ENMT: Denies: throat pain, hoarseness or mouth pain Card: Denies: chest pain, palpitations, irregular heart rhythm, edema, swelling of feet/ankles or lightheadedness Resp: Reports: non-productive cough; Denies: dyspnea, productive cough, wheezing or pain on inspiration GI: Denies: abdominal pain, nausea or vomiting : Denies: flank pain, difficulty voiding, dysuria, urinary frequency, urinary urgency or urinary hesitancy Musc: Denies: neck pain, back pain, extremity pain, extremity swelling, joint pain, joint swelling, joint redness, joint warmth or limited range of motion Skin/Breast: Denies: rash, pruritus, erythema or skin tenderness Neuro: Denies: headache(s), numbness in extremities or weakness in extremities Psych: Denies: anxiety or depression PFSH ED PFSH: Medical History Bladder stone Borderline personality disorder Chronic anxiety Chronic back pain greater than 3 months duration Chronic gastritis without bleeding COPD (chronic obstructive pulmonary disease) Cystitis cystica Dysphagia Esophageal stricture Foreign body in bladder GERD without esophagitis Neurogenic bladder Restrictive lung disease Schizoaffective disorder, bipolar type Urgency incontinence Surgical History H/O bladder repair surgery MESH REPAIR H/O colonoscopy with polypectomy H/O esophagogastroduodenoscopy (09/21/20) H/O: hysterectomy History of appendectomy History of breast biopsy History of foot surgery sx in 2009. Screws placed by Dr. Don. History of ureter stent Hx of cholecystectomy S/P bronchoscopy with biopsy Family History Mother No problems noted. Father No problems noted. Other Asthma Cancer Diabetes Heart disease Social History Smoking and tobacco status: current every day smoker cigarettes Years cigarettes smoked: 20 [ Other cigarette details: Hx of 1 PPD x 20 Years ] Quit status (tobacco): considering quitting Second hand smoke exposure: Yes Smoking risk assessment/counseling performed?: No Alcohol intake: never Counseling given: No Counseling given: No Lives independently: Yes Household members: spouse Marital status: Number of children: 3 Current occupational status: disabled History of recent travel: No Current gender identity: Female Female Reproductive History: Date of last menstrual period: 06/19/95 Physical Exam Const: COMMON NORMALS: no acute distress, average body habitus, patient oriented x3, no limitations, healthy appearing, alert and well nourished HENMT: COMMON NORMALS: normocephalic, atraumatic, hearing grossly normal bilaterally, external ears normal, EAC's normal, TM's normal bilaterally, Normal external nose present, Normal nasal mucous membranes and turbinates present, moist oral mucous membranes, oropharynx normal, dentition normal and gingiva normal HEAD & SCALP: normocephalic and atraumatic NOSE: Normal external nose present and Normal nasal mucous membranes and turbinates present EXTERNAL EAR: Yes external ears normal EXTERNAL AUDITORY CANAL: EAC's normal TYMPANIC MEMBRANE: TM's normal bilaterally Neck/C-Spine: COMMON NORMALS: full ROM, no lymphadenopathy, supple, no meningeal signs, no JVD, Thyroid normal and No carotid bruits THYROID: Thyroid normal Chest: COMMONS NORMALS: normal inspection of the chest, normal palpation of entire chest wall, normal inspection of the breasts and normal palpation of the breasts Breast/axilla inspection: Yes normal inspection of the breasts BREAST/AXILLA PALPATION: Yes normal palpation of the breasts Resp: COMMON NORMALS: normal respiratory effort, No retractions, No use of accessory muscles, clear to auscultation bilaterally and percussion normal AUSCULTATION: clear to auscultation bilaterally PERCUSSION: percussion normal Cardio: COMMON NORMALS: no JVD, regular rate, regular rhythm, S1 normal heart sound present, S2 normal heart sound present, No gallops present (Cardio), No clicks present (Cardio), No murmurs present (Cardio), No rub (Cardio) and Peripheral pulses 2+ throughout RATE: regular rate RHYTHM: regular rhythm HEART SOUNDS: S1 normal heart sound present and S2 normal heart sound present PERIPHERAL PULSES: Peripheral pulses 2+ throughout GI: COMMON NORMALS: Normal to inspection, nondistended, normoactive bowel sounds present, Soft to palpation, non-tender, No hepatosplenomegaly present, no masses and no bruits PALPATION: Yes Soft to palpation and Yes No hepatosplenomegaly present Back/Pelvis: COMMON NORMALS: thoracic and lumbar spine normal to inspection, no thoracic nor lumbar tenderness, thoraco-lumbar ROM normal and straight leg raise negative bilaterally Extremity: COMMON NORMALS: normal to inspection, full ROM, capillary refill normal, no joint enlargement, no clubbing, cyanosis or edema, no calf tenderness and no pedal edema Neuro: COMMON NORMALS: patient oriented x3 SENSORIUM/ORIENTATION: Yes alert MENINGEAL SIGNS: Yes no meningeal signs Course Reevaluation(s): Reevaluation #1: Negative evaluation in the emergency department for any acute findings. Chronic conditions appear to be stable. Patient be discharged home follow-up with primary care physician continue home medication Time: 08:20 Vital Signs: Vital signs: Vital Signs Temperature 99.8 F H 01/03/21 05:52 Pulse Rate 83 01/03/21 08:06 Respiratory Rate 97 H 01/03/21 08:06 Blood Pressure 109/62 01/03/21 08:06 Pulse Oximetry 96 01/03/21 08:06 MDM - SOB/Dyspnea MDM Narrative: Medical decision making narrative: This patient is a 55-year-old female is well-known to the facility presents to the emergency department complaining of cough. Patient was seen in the emergency department here 2 days ago with subsequent was seen at [facility] yesterday and subsequently here [facility]. Patient has a low-grade temperature of 99.8. Patient has a long history of COPD and does take breathing treatments at home. Patient also wears home O2 at 2 L. Patient's pulse ox is at 98% on 2 L. Blood pressure 123/50. Patient states cough has been persistent. Patient was given the vaccine for Covid in September. Patient had a full medical screening exam 2 days ago negative for any acute findings. Patient apparently had an ambulance take her to [facility] and subsequently had a negative evaluation. Went home and called the ambulance to bring to this facility for further evaluation. Negative evaluation in the emergency department for any acute findings. Chronic conditions appear to be stable. Patient be discharged home follow-up with primary care physician continue home medication Lab Data: Labs: Lab Results 01/03/21 01/03/21 01/03/21 Range/Units 06:30 06:30 06:30 WBC (4.0-10.0) 10^3/ uL RBC (4.1-5.3) 10^6/u L Hgb (11.5-15.3) g/dL Hct (37.0-47.0) % MCV (81-99) fL MCH (28.0-34.0) pg MCHC (30.0-36.0) g/dL RDW (12.1-15.1) % Plt Count (130-400) 10^3/c mm MPV (7.4-10.4) fL Neut % (Auto) % Lymph % (Auto) % [place] % (Auto) % Eos % (Auto) % Baso % (Auto) % Neut # (Auto) (1.8-7.7) 10^3/u L Lymph # (Auto) (0.8-4.8) 10^3/u L [place] # (Auto) (0.2-0.9) 10^3/u L Eos # (Auto) (0.0-0.8) 10^3/u L Baso # (Auto) (0.0-0.1) 10^3/u L Nucleated RBC % (a uto) % Nucleated RBCs # /100WBC Sodium (136-145) mmol/L Potassium (3.5-5.1) mmol/L Chloride (98-107) mmol/L Carbon Dioxide (22-29) mmol/L Anion Gap (5-19) BUN (6-20) mg/dL Creatinine (0.5-0.9) mg/dL GFR Calculation (90-130) mL/min Urine Color Yellow (Yellow) Urine Appearance Clear (CLEAR) Urine pH 5 (5-7) Ur Specific Gravit y 1.010 (1.005-1.030) Urine Protein Neg (Negative) Urine Glucose (UA) Norm (Normal) Urine Ketones Negative (Negative) Urine Blood Neg (Negative) Urine Nitrate Negative (Negative) Urine Bilirubin Neg (Negative) Urine Urobilinogen Norm (Negative) mg/dL Ur Leukocyte Stephanie ase Negative (Negative) Urine Opiates Scre en Negative (Negative) ng/mL Ur Barbiturates Sc reen Negative (Negative) ng/mL Ur Phencyclidine S crn Negative (Negative) ng/mL Ur Amphetamines Sc reen Negative (Negative) ng/mL U Benzodiazepines Scrn Positive H (Negative) ng/mL Urine Cocaine Scre en Negative (Negative) ng/mL U Marijuana (THC) Screen Negative (Negative) ng/mL SARS-CoV-2 Ag (Rap id) Negative (Negative) 01/03/21 01/03/21 Range/Units 07:47 07:47 WBC 15.5 H (4.0-10.0) 10^3/ uL RBC 3.67 L (4.1-5.3) 10^6/u L Hgb 11.4 L (11.5-15.3) g/dL Hct 34.7 L (37.0-47.0) % MCV 94.6 (81-99) fL MCH 31.1 (28.0-34.0) pg MCHC 32.9 (30.0-36.0) g/dL RDW 15.1 (12.1-15.1) % Plt Count 190 (130-400) 10^3/c mm MPV 10.5 H (7.4-10.4) fL Neut % (Auto) 79.8 % Lymph % (Auto) 7.9 % [place] % (Auto) 8.6 % Eos % (Auto) 2.8 % Baso % (Auto) 0.5 % Neut # (Auto) 12.38 H (1.8-7.7) 10^3/u L Lymph # (Auto) 1.2 (0.8-4.8) 10^3/u L [place] # (Auto) 1.3 H (0.2-0.9) 10^3/u L Eos # (Auto) 0.4 (0.0-0.8) 10^3/u L Baso # (Auto) 0.1 (0.0-0.1) 10^3/u L Nucleated RBC % (a uto) 0 % Nucleated RBCs # 0.0 /100WBC Sodium 136 (136-145) mmol/L Potassium 3.7 (3.5-5.1) mmol/L Chloride 103 (98-107) mmol/L Carbon Dioxide 26 (22-29) mmol/L Anion Gap 10.7 (5-19) BUN 10 (6-20) mg/dL Creatinine 0.6 (0.5-0.9) mg/dL GFR Calculation 104.6 (90-130) mL/min Urine Color (Yellow) Urine Appearance (CLEAR) Urine pH (5-7) Ur Specific Gravit y (1.005-1.030) Urine Protein (Negative) Urine Glucose (UA) (Normal) Urine Ketones (Negative) Urine Blood (Negative) Urine Nitrate (Negative) Urine Bilirubin (Negative) Urine Urobilinogen (Negative) mg/dL Ur Leukocyte Stephanie ase (Negative) Urine Opiates Scre en (Negative) ng/mL Ur Barbiturates Sc reen (Negative) ng/mL Ur Phencyclidine S crn (Negative) ng/mL Ur Amphetamines Sc reen (Negative) ng/mL U Benzodiazepines Scrn (Negative) ng/mL Urine Cocaine Scre en (Negative) ng/mL U Marijuana (THC) Screen (Negative) ng/mL SARS-CoV-2 Ag (Rap id) (Negative) Imaging Data^: CXR: Attestation: I personally reviewed and interpreted this imaging study as follows: My impression: Negative for acute Discharge Plan Discharge Patient Disposition: Home Clinical Impression: Chronic anxiety, Chronic dyspnea Condition: Stable Prescriptions: No Action hydroxyzine pamoate 50 mg capsule 50 mg PO TID PRN (Reason: Anxiety) Qty: 150 RF: 0 Ingrezza 80 mg capsule 80 mg PO DAILY@0600 Qty: 30 RF: 2 lamotrigine 200 mg tablet 200 mg PO DAILY@0600 Qty: 30 RF: 1 fluticasone propionate [Flonase Allergy Relief] 50 mcg/actuation spray,suspension 1 spray intranasal BID Qty: 16 RF: 0 escitalopram oxalate 10 mg tablet 10 mg PO DAILY Qty: 30 RF: 0 lorazepam 0.5 mg tablet 0.5 mg PO DAILY PRN (Reason: Anxiety) 30 Days Qty: 30 RF: 1 olanzapine 5 mg tablet 5 mg PO BEDTIME Qty: 30 RF: 2 trazodone 300 mg tablet 300 mg PO BEDTIME@2100 Qty: 30 RF: 1 Benefiber Healthy Shape 5 gram/7.4 gram Powder 5 g PO BID@0600,1800 RF: 0 Breo Ellipta 100-25 mcg/dose blister with device 1 inh inhalation DAILY@0600 RF: 0 acetaminophen [Tylenol Arthritis Pain] 650 mg Tablet Extended Release 1,000 mg PO Q6H PRN (Reason: Pain) RF: 0 ondansetron HCl [Zofran] 4 mg tablet 4 mg PO QID PRN (Reason: nausea and vomiting) Qty: 14 RF: 0 pantoprazole 40 mg tablet,delayed release (DR/EC) 40 mg PO DAILY@0800 Qty: 30 RF: 0 albuterol sulfate 90 mcg/actuation HFA aerosol inhaler 2 puff inhalation Q6H PRN (Reason: shortness of breath or wheezing) RF: 0 ipratropium-albuterol 0.5 mg-3 mg(2.5 mg base)/3 mL solution for nebulization 3 ml inhalation Q4H PRN (Reason: Shortness Of Breath Or Wheezing) RF: 0 sucralfate [Carafate] 1 gram tablet 1 g PO Q6H Qty: 60 RF: 0 hydrocodone-acetaminophen 7.5-325 mg tablet 1 tab PO Q6H PRN (Reason: pain) Qty: 14 RF: 0 Discharge Orders: Discharge ED (Routine); Ordered 01/03/21 Ordered By: Andrzej Heredia Referrals: Dara Tavera, AMANDEEP [Primary Care Provider] - Discharge Diet: Advance as tolerated Discharge Activity: Resume usual activity Patient Instructions: Opioid Safety Activity Restrictions/Additional Instructions: Continue all home medications. Follow-up with PCP in 2 to 3 days Coding Level of Care Code ED Negative Turner for Chg Fwd Exam Comprehensive
[2021-01-03 06:57] LABS: Add Urine Microscopic? NO; Charge for UA Resulting for Rev
[2021-01-03 07:11] VITALS: BP 114/65; PULSE 88; RESP 18; O2SAT 96
[2021-01-03 07:13] LABS: Amphetamines Screen Urine Negative (Negative); Barbiturates Screen Urine Negative (Negative); Benzodiazepines Screen Urine Positive (Negative); Cocaine Screen Urine Negative (Negative); Opiate Screen Urine Negative (Negative); PCP Screen Urine Negative (Negative); THC Screen Urine Negative (Negative)
[2021-01-03 07:17] LABS: Bilirubin Urine Neg (Negative); Blood Urine Neg (Negative); Glucose Urine UA Norm (Normal); Ketones Urine Negative (Negative); Leukocyte Esterase Urine Negative (Negative); Nitrate Urine Negative (Negative); Protein Urine Neg (Negative); Urine Appearance Clear (CLEAR); Urine Color Yellow (Yellow); Urobilinogen Urine Norm (Negative); pH Urine 5 (5-7)
[2021-01-03 07:30] VITALS: BP 119/86; PULSE 81; RESP 18; O2SAT 97
[2021-01-03 07:34] LABS: SARS Covid-2 Antigen Negative (Negative)
[2021-01-03 08:00] LABS: Basophils # 0.1 10^3/uL (0.0-0.1); Basophils % 0.5 %; Eosinophils # 0.4 10^3/uL (0.0-0.8); Eosinophils % 2.8 %; Hematocrit 34.7 % (37.0-47.0); Hemoglobin 11.4 g/dL (11.5-15.3); Lymphocytes # 1.2 10^3/uL (0.8-4.8); Lymphocytes % 7.9 %; Mean Corpuscular HGB Conc 32.9 g/dL (30.0-36.0); Mean Corpuscular Hemoglobin 31.1 pg (28.0-34.0); Mean Corpuscular Volume 94.6 fL (81-99); Mean Platelet Volume 10.5 fL (7.4-10.4); Monocytes # 1.3 10^3/uL (0.2-0.9); Monocytes % 8.6 %; Neutrophils # 12.38 10^3/uL (1.8-7.7); Neutrophils % 79.8 %; Nucleated Red Blood Cells % 0 %; Platelet Count 190 10^3/cmm (130-400); Red Blood Count 3.67 10^6/uL (4.1-5.3); Red Cell Distribution Width 15.1 % (12.1-15.1); White Blood Count 15.5 10^3/uL (4.0-10.0)
[2021-01-03 08:06] VITALS: BP 109/62; PULSE 83; RESP 97; O2SAT 96
[2021-01-03 08:18] LABS: Anion Gap 10.7 (5-19); Blood Urea Nitrogen 10 mg/dL (6-20); Calcium 8.1 mg/dL (8.5-10.5); Carbon Dioxide 26 mmol/L (22-29); Chloride 103 mmol/L (98-107); Glomerular Filtration Rate 104.6 mL/min (90-130); Glucose 119 mg/dL (65-115); Osmolality Calculated 282 mOsm/kg (285-295); Potassium 3.7 mmol/L (3.5-5.1); Sodium 136 mmol/L (136-145)
[2021-01-03 08:59] VITALS: BP 127/65; PULSE 86; RESP 18; O2SAT 94
== END 2021-01-03 08:59 | disposition home or self-care (01) ==
PROVIDERS: Emergency Provider Emergency Medicine; PCP Registered Nurse
DX: F41.8 Other specified anxiety disorders (principal); R06.09 Other forms of dyspnea; J44.9 Chronic obstructive pulmonary disease, unspecified; F17.210 Nicotine dependence, cigarettes, uncomplicated; Z20.822 Contact with and (suspected) exposure to COVID-19
CPT/HCPCS: 71045; 80048; 80306; 81003; 85025; 87426; 99283

== ENCOUNTER → 2021-01-06 07:14 | Outpatient (BNVA) | payer MEDICARE, MEDICAID, SELFPAY | PROVIDERS: PCP Registered Nurse; Visit Provider Nurse Practitioner | DX: F25.0 Schizoaffective disorder, bipolar type (principal); F60.3 Borderline personality disorder | CPT/HCPCS: 99214 ==

== ENCOUNTER → 2021-01-12 08:22 | Outpatient (BNVA) | payer MEDICARE, MEDICAID, SELFPAY | PROVIDERS: PCP Registered Nurse; Referring Provider Registered Nurse; Visit Provider Orthopaedic Surgery | DX: M25.552 Pain in left hip (principal); M25.551 Pain in right hip | CPT/HCPCS: 73521 ==

== ENCOUNTER 2021-02-10 21:05 | Emergency (ER) | payer MEDICARE, MEDICAID, SELFPAY ==
[2021-02-10 23:11] VITALS: BP 125/80; PULSE 82; RESP 16; TEMP 36.8; O2SAT 98; BMI 36.6
--- NOTE | 2021-02-11 02:20 | ED_ITS ---
HPI - Extremity Problem General: Chief complaint: Extremity Problem,Nontraumatic Stated complaint: swelling in both legs, leg pain Time Seen by Provider: 02/11/21 02:10 Source: patient Mode of arrival: ambulatory Limitations: no limitations History of Present Illness: HPI Narrative: 55-year-old female who is well- known to the ED states that she is started new medicines caused swelling in her extremities. States she is having some pain in her extremities to due to the swelling. She denies any increased shortness of breath. She denies any worsening improving factors. Denies any chest pain. Patient here is in no respiratory distress. Associated symptoms: Deny chest pain, fever(s) or rash Review of Systems Const: Denies: fever(s), chills, body aches or change in appetite Eyes: Denies: blurry vision or eye discomfort ENMT: Denies: throat pain or dental pain Card: Reports: swelling of feet/ankles; Denies: chest pain Resp: Denies: dyspnea GI: Denies: abdominal pain, nausea, vomiting or diarrhea : Denies: dysuria Musc: Denies: neck pain or back pain Skin/Breast: Denies: rash Neuro: Denies: headache(s) Psych: Denies: depression Wilbur/Lymph: Denies: easy bruising All/Imm: Denies: urticaria PFSH ED PFSH: Medical History Bladder stone Borderline personality disorder Chronic anxiety Chronic back pain greater than 3 months duration Chronic gastritis without bleeding COPD (chronic obstructive pulmonary disease) Cystitis cystica Dysphagia Esophageal stricture Foreign body in bladder GERD without esophagitis Neurogenic bladder Restrictive lung disease Schizoaffective disorder, bipolar type Urgency incontinence Surgical History H/O bladder repair surgery MESH REPAIR H/O colonoscopy with polypectomy H/O esophagogastroduodenoscopy (09/21/20) H/O: hysterectomy History of appendectomy History of breast biopsy History of foot surgery sx in 2009. Screws placed by Dr. Don. History of ureter stent Hx of cholecystectomy S/P bronchoscopy with biopsy Family History Mother No problems noted. Father No problems noted. Other Asthma Cancer Diabetes Heart disease Social History Quit status (tobacco): considering quitting Second hand smoke exposure: Yes Smoking risk assessment/counseling performed?: No Alcohol intake: never Counseling given: No Counseling given: No Lives independently: Yes Household members: spouse Marital status: Number of children: 3 Current occupational status: disabled History of recent travel: No Current gender identity: Female Female Reproductive History: Date of last menstrual period: 06/19/95 Physical Exam Const: COMMON NORMALS: no acute distress, patient oriented x3 and healthy a ppearing HENMT: COMMON NORMALS: normocephalic and atraumatic HEAD & SCALP: normocephalic and atraumatic Eye: COMMON NORMALS: Equal, round and reactive pupils present and EOMs intact bilaterally PUPIL: Yes Equal, round and reactive pupils present Neck/C-Spine: COMMON NORMALS: full ROM and supple Chest: COMMONS NORMALS: normal inspection of the chest and normal palpation of entire chest wall Resp: COMMON NORMALS: normal respiratory effort, No retractions, No use of accessory muscles and clear to auscultation bilaterally AUSCULTATION: clear to auscultation bilaterally Cardio: COMMON NORMALS: regular rate, regular rhythm and No murmurs present (Cardio) RATE: regular rate RHYTHM: regular rhythm GI: COMMON NORMALS: Normal to inspection, nondistended, normoactive bowel sounds present, Soft to palpation, non-tender and no masses PALPATION: Yes Soft to palpation Extremity: COMMON NORMALS: full ROM NARRATIVE EXTREMITY EXAM: 1+ edema to bilateral legs Neuro: COMMON NORMALS: patient oriented x3, moves all extremities and no focal motor deficits Psych: COMMON NORMALS: mental status grossly normal, Normal thought process present and cooperative THOUGHT PROCESS: Normal thought process present Skin: COMMON NORMALS: no rashes or lesions noted and no wounds GENERAL SKIN EXAM: no rashes or lesions noted Course Vital Signs: Vital signs: Vital Signs Temperature 98.3 F 02/10/21 23:11 Pulse Rate 82 02/10/21 23:11 Respiratory Rate 16 02/10/21 23:11 Blood Pressure 125/80 02/10/21 23:11 Pulse Oximetry 98 02/10/21 23:11 MDM - Extremity (Nontraumatic) MDM Narrative: Medical decision making narrative: Patient presents with lower extremity edema likely from her congestive heart failure. CT chest here shows no acute findings. Patient given Lasix here and will start her on 20 mg of Lasix daily. She is to follow-up with PCP and return if worsening. Lab Data: Labs: Lab Results 02/11/21 02/11/21 02/11/21 Range/Units 02:22 02:22 02:22 WBC 8.9 (4.0-10.0) 10^3/ uL RBC 4.13 (4.1-5.3) 10^6/u L Hgb 12.5 (11.5-15.3) g/dL Hct 39.3 (37.0-47.0) % MCV 95.2 (81-99) fl MCH 30.3 (28.0-34.0) pg MCHC 31.8 (30.0-36.0) g/dL RDW 14.6 (12.1-15.1) % Plt Count 201 (130-400) 10^3/c mm MPV 10.7 H (7.4-10.4) fL Neut % (Auto) 60.6 % Lymph % (Auto) 19.5 % [place] % (Auto) 12.5 % Eos % (Auto) 6.1 % Baso % (Auto) 1.0 % Neut # (Auto) 5.37 (1.8-7.7) 10^3/u L Lymph # (Auto) 1.7 (0.8-4.8) 10^3/u L [place] # (Auto) 1.1 H (0.2-0.9) 10^3/u L Eos # (Auto) 0.5 (0.0-0.8) 10^3/u L Baso # (Auto) 0.1 (0.0-0.1) 10^3/u L Nucleated RBC % (a uto) 0 % Nucleated RBCs # 0.0 /100WBC D-Dimer 0.82 H (0-0.59) ug/mIFE U Sodium 138 (136-145) mmol/L Potassium 4.0 (3.5-5.1) mmol/L Chloride 103 (98-107) mmol/L Carbon Dioxide 25 (22-29) mmol/L Anion Gap 14.0 (5-19) BUN 12 (6-20) mg/dL Creatinine 0.7 (0.5-0.9) mg/dL GFR Calculation 87.5 L (90-130) mL/min Glucose 89 (65-115) mg/dL Calculated Osmolal ity 285 (285-295) mOsm/k g Calcium 9.2 (8.5-10.5) mg/dL Total Bilirubin 0.4 (0.15-1.2) mg/dL AST 14 (0-32) U/L ALT 17 (0-33) U/L Alkaline Phosphata se 116 H (35-105) IU/L NT-Pro-B Natriuret Pep 189 H (0-125) pg/mL Total Protein 6.2 L (6.6-8.7) g/dL Albumin 3.9 (3.5-5.2) g/dL Globulin 2.3 (1.3-4.6) g/dL Urine Color (Yellow) Urine Appearance (CLEAR) Urine pH (5-7) Ur Specific Gravit y (1.005-1.030) Urine Protein (Negative) Urine Glucose (UA) (Normal) Urine Ketones (Negative) Urine Blood (Negative) Urine Nitrate (Negative) Urine Bilirubin (Negative) Urine Urobilinogen (Negative) mg/dL Ur Leukocyte Stephanie ase (Negative) 02/11/21 Range/Units 02:28 WBC (4.0-10.0) 10^3/ uL RBC (4.1-5.3) 10^6/u L Hgb (11.5-15.3) g/dL Hct (37.0-47.0) % MCV (81-99) fl MCH (28.0-34.0) pg MCHC (30.0-36.0) g/dL RDW (12.1-15.1) % Plt Count (130-400) 10^3/c mm MPV (7.4-10.4) fL Neut % (Auto) % Lymph % (Auto) % [place] % (Auto) % Eos % (Auto) % Baso % (Auto) % Neut # (Auto) (1.8-7.7) 10^3/u L Lymph # (Auto) (0.8-4.8) 10^3/u L [place] # (Auto) (0.2-0.9) 10^3/u L Eos # (Auto) (0.0-0.8) 10^3/u L Baso # (Auto) (0.0-0.1) 10^3/u L Nucleated RBC % (a uto) % Nucleated RBCs # /100WBC D-Dimer (0-0.59) ug/mIFE U Sodium (136-145) mmol/L Potassium (3.5-5.1) mmol/L Chloride (98-107) mmol/L Carbon Dioxide (22-29) mmol/L Anion Gap (5-19) BUN (6-20) mg/dL Creatinine (0.5-0.9) mg/dL GFR Calculation (90-130) mL/min Glucose (65-115) mg/dL Calculated Osmolal ity (285-295) mOsm/k g Calcium (8.5-10.5) mg/dL Total Bilirubin (0.15-1.2) mg/dL AST (0-32) U/L ALT (0-33) U/L Alkaline Phosphata se (35-105) IU/L NT-Pro-B Natriuret Pep (0-125) pg/mL Total Protein (6.6-8.7) g/dL Albumin (3.5-5.2) g/dL Globulin (1.3-4.6) g/dL Urine Color Yellow (Yellow) Urine Appearance Clear (CLEAR) Urine pH 5 (5-7) Ur Specific Gravit y 1.015 (1.005-1.030) Urine Protein Neg (Negative) Urine Glucose (UA) Norm (Normal) Urine Ketones Negative (Negative) Urine Blood Neg (Negative) Urine Nitrate Negative (Negative) Urine Bilirubin Neg (Negative) Urine Urobilinogen Norm (Negative) mg/dL Ur Leukocyte Stephanie ase Negative (Negative) Imaging Data^: CT Chest: Attestation: I personally reviewed and interpreted this imaging study as follows: Radiologist's impression: [address] [address] [address] Scan Report Signed Patient: Latesha Wilhelm Unit #: [id number] : [id number] Age/Sex: 55 / F ADM Date: 02/10/21 Loc: ER Room/Bed: Attending Dr: Ordering Provider/Ordering MD: Damien Urbina MD Date of Service: 02/11/21 Procedure(s): CT angio chest PE protcl [id number] Accession Number(s): [id number] Report Number: [id number] PROCEDURE INFORMATION: Exam: CTA Chest With Contrast Exam date and time: 02/11/2021 2:50 AM Age: 55 years old Clinical indication: Shortness of breath; Prior surgery; Surgery type: Gb; Patient HX: Sob/elevated ddimer. History of chf. TECHNIQUE: Imaging protocol: Computed tomographic angiography of the chest with contrast. 3D rendering (Not supervised by radiologist): MIP and/or 3D reconstructed images were created by the technologist. Radiation optimization: All CT scans at this facility use at least one of these dose optimization techniques: automated exposure control; mA and/or kV adjustment per patient size (includes targeted exams where dose is matched to clinical indication); or iterative reconstruction. Contrast material: OMNI 350; Contrast volume: 135 ml; Contrast route: INTRAVENOUS (IV); COMPARISON: CT angio chest PE protcl [id number] 02/13/2020 8:23 PM RADIATION DOSE METRICS: Total DLP (mGy-cm): 1762.81 FINDINGS: Pulmonary arteries: No pulmonary embolism. Aorta: No aortic dissection. Lungs: There is enlargement of the pulmonary vascularity. There is thickening of the interstitial markings. Pleural spaces: Unremarkable. No pneumothorax. No pleural effusion. Heart: The heart is mildly enlarged. Lymph nodes: 2.3 x 1.2 cm aortopulmonary window lymph node. 2.3 x 1.2 cm right hilar lymph node. Gallbladder and bile ducts: There has been a cholecystectomy. Bones/joints: Unremarkable. No acute fracture. Soft tissues: Unremarkable. CT/CT angio chest PE protcl [id number] IMPRESSION: 1. No pulmonary embolism. 2. Congestive heart failure. 3. No aortic dissection. 4. Nonspecific mildly enlarged mediastinal and right hilar lymph nodes. Radiation Dose CTDIVOL = (mGy): DLP = 1762.81 (mGy-cm) Dictated By: Selvin Boogie Signed By: Selvin Boogie Signed Date/Time: 02/11 DD/ 5 Discharge Plan Discharge Patient Disposition: Home Clinical Impression: Lower extremity edema Condition: Stable Prescriptions: New Lasix 20 mg tablet 20 mg PO QAM Qty: 30 RF: 0 No Action hydroxyzine pamoate 50 mg capsule 50 mg PO TID PRN (Reason: Anxiety) Qty: 150 RF: 0 Ingrezza 80 mg capsule 80 mg PO DAILY@0600 Qty: 30 RF: 2 lamotrigine 200 mg tablet 200 mg PO DAILY@0600 Qty: 30 RF: 1 escitalopram oxalate 10 mg tablet 10 mg PO DAILY Qty: 30 RF: 0 lorazepam 0.5 mg tablet 0.5 mg PO DAILY PRN (Reason: Anxiety) 30 Days Qty: 30 RF: 1 olanzapine 5 mg tablet 5 mg PO BEDTIME Qty: 30 RF: 2 trazodone 300 mg tablet 300 mg PO BEDTIME@2100 Qty: 30 RF: 1 fluticasone propionate 50 mcg/actuation spray,suspension See Rx Instructions .ROUTE .COMPLEX Qty: 48 RF: 0 Benefiber Healthy Shape 5 gram/7.4 gram Powder 5 g PO BID@0600,1800 RF: 0 Breo Ellipta 100-25 mcg/dose blister with device 1 inh inhalation DAILY@0600 RF: 0 acetaminophen [Tylenol Arthritis Pain] 650 mg Tablet Extended Release 1,000 mg PO Q6H PRN (Reason: Pain) RF: 0 ondansetron HCl [Zofran] 4 mg tablet 4 mg PO QID PRN (Reason: nausea and vomiting) Qty: 14 RF: 0 pantoprazole 40 mg tablet,delayed release (DR/EC) 40 mg PO DAILY@0800 Qty: 30 RF: 0 albuterol sulfate 90 mcg/actuation HFA aerosol inhaler 2 puff inhalation Q6H PRN (Reason: shortness of breath or wheezing) RF: 0 ipratropium-albuterol 0.5 mg-3 mg(2.5 mg base)/3 mL solution for nebulization 3 ml inhalation Q4H PRN (Reason: Shortness Of Breath Or Wheezing) RF: 0 sucralfate [Carafate] 1 gram tablet 1 g PO Q6H Qty: 60 RF: 0 hydrocodone-acetaminophen 7.5-325 mg tablet 1 tab PO Q6H PRN (Reason: pain) Qty: 14 RF: 0 Discharge Orders: Discharge ED (Routine); Ordered 02/11/21 Ordered By: Damien Urbina Referrals: Dara Tavera FNP [Primary Care Provider] - 1-3 days Discharge Diet: Advance as tolerated Discharge Activity: Resume usual activity Patient Instructions: Leg Edema (ED) Coding Level of Care Code ED Clinical Document Improvement Educator for Chg Fwd Exam Comprehensive
--- NOTE | 2021-02-11 02:23 | XRR_ITS ---
PROCEDURE INFORMATION: Exam: XR Chest Exam date and time: 02/11/2021 2:23 AM Age: 55 years old Clinical indication: Shortness of breath; Prior surgery; Surgery type: Gb. Bronchoscopy. ; Patient HX: SOB. Bilateral lower leg edema. History of chf. TECHNIQUE: Imaging protocol: XR of the chest. Views: 1 view. COMPARISON: CR (CHEST, ) 01/03/2021 6:23 AM FINDINGS: Lungs: Unremarkable. No consolidation. Pleural spaces: Unremarkable. No pleural effusion. No pneumothorax. Heart/Mediastinum: There is mild cardiomegaly. Bones/joints: Unremarkable. XR/XR chest 1V portable [id number] IMPRESSION: 1. Mild cardiomegaly. 2. No acute disease.
[2021-02-11 02:33] LABS: Basophils # 0.1 10^3/uL (0.0-0.1); Eosinophils # 0.5 10^3/uL (0.0-0.8); Eosinophils % 6.1 %; Hematocrit 39.3 % (37.0-47.0); Hemoglobin 12.5 g/dL (11.5-15.3); Lymphocytes # 1.7 10^3/uL (0.8-4.8); Lymphocytes % 19.5 %; Mean Corpuscular HGB Conc 31.8 g/dL (30.0-36.0); Mean Corpuscular Hemoglobin 30.3 pg (28.0-34.0); Mean Corpuscular Volume 95.2 fl (81-99); Mean Platelet Volume 10.7 fL (7.4-10.4); Monocytes # 1.1 10^3/uL (0.2-0.9); Monocytes % 12.5 %; Neutrophils # 5.37 10^3/uL (1.8-7.7); Neutrophils % 60.6 %; Nucleated Red Blood Cells % 0 %; Platelet Count 201 10^3/cmm (130-400); Red Blood Count 4.13 10^6/uL (4.1-5.3); Red Cell Distribution Width 14.6 % (12.1-15.1); White Blood Count 8.9 10^3/uL (4.0-10.0)
[2021-02-11] MEDS: ondansetron 2 mg/ML SDV 2 mL 4 MG IM (02:33)
[2021-02-11] MEDS: FUROsemide 10 mg/mL SDV 4mL 40 MG IM (02:33)
[2021-02-11] MEDS: morphine 4 mg/mL SDV 1 mL IM (02:33)
[2021-02-11 02:38] LABS: Add Urine Microscopic? NO; Charge for UA Resulting for Rev
[2021-02-11 02:41] LABS: Bilirubin Urine Neg (Negative); Blood Urine Neg (Negative); Glucose Urine UA Norm (Normal); Ketones Urine Negative (Negative); Leukocyte Esterase Urine Negative (Negative); Nitrate Urine Negative (Negative); Protein Urine Neg (Negative); Specific Gravity, Urine 1.015 (1.005-1.030); Urine Appearance Clear (CLEAR); Urine Color Yellow (Yellow); Urobilinogen Urine Norm (Negative); pH Urine 5 (5-7)
[2021-02-11 02:47] LABS: D Dimer 0.82 ug/mIFEU (0-0.59)
--- NOTE | 2021-02-11 02:50 | CTR_ITS ---
PROCEDURE INFORMATION: Exam: CTA Chest With Contrast Exam date and time: 02/11/2021 2:50 AM Age: 55 years old Clinical indication: Shortness of breath; Prior surgery; Surgery type: Gb; Patient HX: Sob/elevated ddimer. History of chf. TECHNIQUE: Imaging protocol: Computed tomographic angiography of the chest with contrast. 3D rendering (Not supervised by radiologist): MIP and/or 3D reconstructed images were created by the technologist. Radiation optimization: All CT scans at this facility use at least one of these dose optimization techniques: automated exposure control; mA and/or kV adjustment per patient size (includes targeted exams where dose is matched to clinical indication); or iterative reconstruction. Contrast material: OMNI 350; Contrast volume: 135 ml; Contrast route: INTRAVENOUS (IV); COMPARISON: CT angio chest PE protcl [id number] 02/13/2020 8:23 PM RADIATION DOSE METRICS: Total DLP (mGy-cm): 1762.81 FINDINGS: Pulmonary arteries: No pulmonary embolism. Aorta: No aortic dissection. Lungs: There is enlargement of the pulmonary vascularity. There is thickening of the interstitial markings. Pleural spaces: Unremarkable. No pneumothorax. No pleural effusion. Heart: The heart is mildly enlarged. Lymph nodes: 2.3 x 1.2 cm aortopulmonary window lymph node. 2.3 x 1.2 cm right hilar lymph node. Gallbladder and bile ducts: There has been a cholecystectomy. Bones/joints: Unremarkable. No acute fracture. Soft tissues: Unremarkable. CT/CT angio chest PE protcl [id number] IMPRESSION: 1. No pulmonary embolism. 2. Congestive heart failure. 3. No aortic dissection. 4. Nonspecific mildly enlarged mediastinal and right hilar lymph nodes. Radiation Dose CTDIVOL = (mGy): DLP = 1762.81 (mGy-cm)
[2021-02-11 03:04] LABS: Alanine Aminotransferase 17 U/L (0-33); Albumin Level 3.9 g/dL (3.5-5.2); Alkaline Phosphatase 116 IU/L (35-105); Aspartate Amino Transferase 14 U/L (0-32); Blood Urea Nitrogen 12 mg/dL (6-20); Calcium 9.2 mg/dL (8.5-10.5); Carbon Dioxide 25 mmol/L (22-29); Chloride 103 mmol/L (98-107); Globulin 2.3 g/dL (1.3-4.6); Glomerular Filtration Rate 87.5 mL/min (90-130); Glucose 89 mg/dL (65-115); NT Pro B Type Natriuretic Pept 189 pg/mL (0-125); Osmolality Calculated 285 mOsm/kg (285-295); Sodium 138 mmol/L (136-145); Total Bilirubin 0.4 mg/dL (0.15-1.2); Total Protein 6.2 g/dL (6.6-8.7)
[2021-02-11] MEDS: iohexol 350 mg/mL 100 mL Btl IV ×2 (03:51→03:52)
[2021-02-11 04:35] VITALS: BP 124/71; PULSE 81; RESP 16; O2SAT 98
== END 2021-02-11 04:36 | disposition home or self-care (01) ==
PROVIDERS: Nurse Practitioner Family; Emergency Provider Emergency Medicine; PCP Registered Nurse
DX: R60.0 Localized edema (principal); J44.9 Chronic obstructive pulmonary disease, unspecified; Z77.22 Contact with and (suspected) exposure to environmental tobacco smoke (acute) (chronic)
CPT/HCPCS: 71045; 71275; 80053; 81003; 83880; 85025; 85378; 96372; 99283; J1940; J2270; J2405; Q9967

== ENCOUNTER → 2021-02-18 07:30 | Outpatient (BNVA) | payer MEDICARE, MEDICAID, SELFPAY | PROVIDERS: PCP Registered Nurse; Visit Provider Nurse Practitioner | DX: F60.3 Borderline personality disorder (principal); F25.0 Schizoaffective disorder, bipolar type; G24.01 Drug induced subacute dyskinesia | CPT/HCPCS: 99214 ==

== ENCOUNTER → 2021-03-04 07:52 | Outpatient (BNVA) | payer MEDICARE, MEDICAID, SELFPAY | PROVIDERS: PCP Registered Nurse; Visit Provider Nurse Practitioner | DX: F60.3 Borderline personality disorder (principal); F25.0 Schizoaffective disorder, bipolar type; G24.01 Drug induced subacute dyskinesia | CPT/HCPCS: 99214 ==

== ENCOUNTER 2021-03-22 12:42 | Emergency (ER) | payer MEDICARE, MEDICAID, SELFPAY ==
[2021-03-22 12:45] VITALS: BP 93/75; PULSE 109; RESP 24; TEMP 37.5; O2SAT 96; BMI 34.1
--- NOTE | 2021-03-22 12:47 | ED_ITS ---
HPI - Chest Pain General: Chief Complaint: Chest Pain Stated Complaint: chest pain Time Seen by Provider: 03/22/21 12:47 History of Present Illness: HPI narrative: Ms. Wilhelm is a 55-year-old lady with complex past medical history including psychiatric disorder, chest pain, and esophageal dilation who presents emergency department for chest pain. Symptom onset was at about 11 AM today and sudden at rest. She endorses midsternal and goes to the back. This is moderate to severe in intensity. Quality is sharp .she has had similar episodes but she has a hard time saying how similar they were. Prior to this no other changes in health. No other specific exacerbating or relieving factors identified. She does report a cardiac cath without required intervention in December some time. Review of Systems General: Reports: 10 or more systems reviewed and unremarkable except in HPI and below PFSH ED PFSH: Medical History Bladder stone Borderline personality disorder Chronic anxiety Chronic back pain greater than 3 months duration Chronic gastritis without bleeding COPD (chronic obstructive pulmonary disease) Cystitis cystica Dysphagia Esophageal stricture Foreign body in bladder GERD without esophagitis Neurogenic bladder Psychiatric care Restrictive lung disease Schizoaffective disorder, bipolar type Tardive dyskinesia Urgency incontinence Surgical History H/O bladder repair surgery MESH REPAIR H/O colonoscopy with polypectomy H/O esophagogastroduodenoscopy (09/21/20) H/O: hysterectomy History of appendectomy History of breast biopsy History of foot surgery sx in 2009. Screws placed by Dr. Don. History of ureter stent Hx of cholecystectomy S/P bronchoscopy with biopsy Family History Mother No problems noted. Father No problems noted. Other Asthma Cancer Diabetes Heart disease Social History Quit status (tobacco): considering quitting Second hand smoke exposure: Yes Smoking risk assessment/counseling performed?: No Alcohol intake: never Counseling given: No Counseling given: No Lives independently: Yes Household members: spouse Marital status: Number of children: 3 Current occupational status: disabled History of recent travel: No Current gender identity: Female Female Reproductive History: Date of last menstrual period: 06/19/95 Physical Exam Narrative: EXAM NARRATIVE: GENERAL/CONSTITUTIONAL - well-appearing. Uncomfortable. Eyes - PERRL, no conjunctival injection ENMT - Atraumatic external nose and ears. Moist mucous membranes NECK - supple. trachea midline CARDIOVASCULAR - regular rate and rhythm. Peripheral pulses 2+ and equal RESPIRATORY -clear to auscultation bilaterally. No retractions or accessory muscle use. ABDOMEN/GI - Nontender. Nondistended. MSK - Extremities without obvious deformity or tenderness to palpation SKIN - Warm, Dry NEURO - alert and appropriately oriented. Moves all extremities equally. PSYCH - Appropriate mood and affect Course ED course: - Patient was seen and evaluated by me at bedside - Patient placed on cardiac monitors, IV access obtained - Initial evaluation notable for uncomfortable appearance, nontoxic, chest pain not reproducible with physical exam palpation - Symptom treatment ordered - Labs notable for no leukocytosis, metabolic panel without obvious cause of patient symptoms, bicarb is mildly decreased. Urinalysis not concerning for urinary tract infection given squamous epithelial contamination and nitrite negative. Delta troponin negative. - Imaging notable for chest x-ray negative for acute cause of patient's symptoms - Despite intervention patient continues to report significant pain - Therefore, given complex past history additional imaging warranted. No obvious cause identified on CT scan chest abdomen or pelvis. - Upon serial reexamination after treatment the patient was similar - Based on patient history, evaluation, labs, and imaging as interpreted the most likely cause of the patient's condition is unclear. Patient has an extensive past medical history for pathology and symptoms without obvious cause. Unfortunately we were not able to obtain cath report however if no intervention was performed the likelihood of significant change within the interval time is low - The results of ED evaluation were discussed with the patient including prescriptions and/or symptomatic cares (if applicable) including appropriate and responsible use, followup plan, and return precautions. The patient verbalized understanding and felt safe for discharge. - Patient discharged in satisfactory condition. Vital Signs: Vital signs: Vital Signs Temperature 99.5 F 03/22/21 12:45 Pulse Rate 89 03/22/21 20:08 Respiratory Rate 16 03/22/21 20:08 Blood Pressure 130/89 03/22/21 16:10 Pulse Oximetry 94 03/22/21 20:08 MDM - Chest Pain Medical Records: Attestation: I reviewed the patient's medical records. Lab Data: Attestation: I reviewed the patient's lab results. Labs: Lab Results 03/22/21 03/22/21 03/22/21 14:19 14:28 14:28 WBC Cancelled Corrected WBC Cancelled RBC Cancelled Hgb Cancelled Hct Cancelled MCV Cancelled MCH Cancelled MCHC Cancelled RDW Cancelled Plt Count Cancelled MPV Cancelled Gran % Cancelled Neut % (Auto) Cancelled Lymph % (Auto) Cancelled [place] % (Auto) Cancelled Eos % (Auto) Cancelled Baso % (Auto) Cancelled Neut # (Auto) Cancelled Lymph # (Auto) Cancelled [place] # (Auto) Cancelled Eos # (Auto) Cancelled Baso # (Auto) Cancelled Absolute Gran (aut o) Cancelled Nucleated RBC % (a uto) Cancelled Nucleated RBCs # Cancelled Sodium 138 mmol/L mmol/L (136-145) Potassium 4.4 mmol/L mmol/L (3.5-5.1) Chloride 106 mmol/L mmol/L (98-107) Carbon Dioxide 18 mmol/L L mmol/ L (22-29) Anion Gap 18.4 (5-19) BUN 11 mg/dL mg/dL (6-20) Creatinine 0.9 mg/dL mg/dL (0.5-0.9) GFR Calculation 65.5 mL/min L mL/ min (90-130) Glucose 95 mg/dL mg/dL (65-115) Calculated Osmolal ity 285 mOsm/kg mOsm/ kg (285-295) Calcium 9.2 mg/dL mg/dL (8.5-10.5) Total Bilirubin 0.2 mg/dL mg/dL (0.15-1.2) AST 12 U/L U/L (0-32) ALT 10 U/L U/L (0-33) Alkaline Phosphata se 123 IU/L H IU/L (35-105) Troponin T Baselin e 6 ng/L ng/L (0-10) Troponin T 120 Min [place] Delta Troponin T NT-Pro-B Natriuret Pep 78 pg/mL pg/mL (0-125) Total Protein 6.0 g/dL L g/dL (6.6-8.7) Albumin 4.0 g/dL g/dL (3.5-5.2) Globulin 2.0 g/dL g/dL (1.3-4.6) Lipase 20 U/L U/L (13-60) Procalcitonin 0.05 ng/mL ng/mL (0-0.5) TSH 1.12 uIU/mL uIU/m L (0.27-4.20) 03/22/21 03/22/21 15:28 16:37 WBC 9.8 10^3/uL 10^3/ uL (4.0-10.0) Corrected WBC RBC 4.76 10^6/uL 10^6 /uL (4.1-5.3) Hgb 14.6 g/dL g/dL (11.5-15.3) Hct 45.8 % % (37.0-47.0) MCV 96.2 fl fl (81-99) MCH 30.7 pg pg (28.0-34.0) MCHC 31.9 g/dL g/dL (30.0-36.0) RDW 16.2 % H % (12.1-15.1) Plt Count 190 10^3/cmm 10^3 /cmm (130-400) MPV 11.0 fL H fL (7.4-10.4) Gran % Neut % (Auto) 61.6 % % Lymph % (Auto) 25.8 % % [place] % (Auto) 7.9 % % Eos % (Auto) 3.5 % % Baso % (Auto) 1.0 % % Neut # (Auto) 6.05 10^3/uL 10^3 /uL (1.8-7.7) Lymph # (Auto) 2.5 10^3/uL 10^3/ uL (0.8-4.8) [place] # (Auto) 0.8 10^3/uL 10^3/ uL (0.2-0.9) Eos # (Auto) 0.3 10^3/uL 10^3/ uL (0.0-0.8) Baso # (Auto) 0.1 10^3/uL 10^3/ uL (0.0-0.1) Absolute Gran (aut o) Nucleated RBC % (a uto) 0 % % Nucleated RBCs # 0.0 /100WBC /100W BC Sodium Potassium Chloride Carbon Dioxide Anion Gap BUN Creatinine GFR Calculation Glucose Calculated Osmolal ity Calcium Total Bilirubin AST ALT Alkaline Phosphata se Troponin T Baselin e Troponin T 120 Min [place] 6.00 ng/L ng/L (0-10) Delta Troponin T 0 ABS# ABS# (0-10) NT-Pro-B Natriuret Pep Total Protein Albumin Globulin Lipase Procalcitonin TSH EKG Data^: EKG 1: Attestation: I personally reviewed and interpreted this EKG as follows: EKG interpretation date: 03/22/21 EKG interpretation time: 13:47 Interpretation: Twelve-lead EKG shows regular sinus rhythm at a rate of 85. OR interval 145, QRS duration 100, QTc 440. Normal axis. Interpretation: Mildly limited interpretation due to baseline artifact. Sinus rhythm. No STEMI. EKG 2: Attestation: I personally reviewed and interpreted this EKG as follows: EKG interpretation date: 03/22/21 EKG interpretation time: 15:19 Interpretation: Twelve-lead EKG shows a regular sinus rhythm at a rate of 81. OR interval 149, QRS duration 89, QTc 423. Normal axis. Interpretation: Sinus rhythm. Similar to prior. Discharge Plan Discharge Patient Disposition: Home Clinical Impression: Pain Condition: Stable Prescriptions: No Action olanzapine 5 mg tablet 10 mg PO BEDTIME RF: 0 trazodone 300 mg tablet 300 mg PO BEDTIME@2100 Qty: 30 RF: 1 ondansetron HCl [Zofran] 4 mg tablet 4 mg PO QID PRN (Reason: nausea and vomiting) Qty: 14 RF: 0 hydroxyzine pamoate 50 mg capsule 50 mg PO TID PRN (Reason: Anxiety) Qty: 150 RF: 1 lamotrigine 200 mg tablet 200 mg PO DAILY@0600 Qty: 30 RF: 1 fluticasone propionate 50 mcg/actuation spray,suspension See Rx Instructions .ROUTE .COMPLEX Qty: 48 RF: 0 Ingrezza 80 mg capsule 80 mg PO DAILY@0600 Qty: 30 RF: 2 citalopram [Celexa] 20 mg tablet 20 mg PO DAILY Qty: 30 RF: 1 Breo Ellipta 100-25 mcg/dose blister with device 1 inh inhalation DAILY@0600 RF: 0 acetaminophen [Tylenol Arthritis Pain] 650 mg Tablet Extended Release 1,000 mg PO Q6H PRN (Reason: Pain) RF: 0 pantoprazole 40 mg tablet,delayed release (DR/EC) 40 mg PO DAILY@0800 Qty: 30 RF: 0 albuterol sulfate 90 mcg/actuation HFA aerosol inhaler 2 puff inhalation Q6H PRN (Reason: shortness of breath or wheezing) RF: 0 ipratropium-albuterol 0.5 mg-3 mg(2.5 mg base)/3 mL solution for nebulization 3 ml inhalation Q4H PRN (Reason: Shortness Of Breath Or Wheezing) RF: 0 furosemide [Lasix] 20 mg tablet 20 mg PO QAM Qty: 30 RF: 0 Discharge Orders: Discharge ED (Routine); Ordered 03/22/21 Ordered By: Anshul Ames Referrals: Dara Tavera FNP [Primary Care Provider] - Discharge Diet: Usual diet Discharge Activity: Resume usual activity Patient Instructions: Chest Pain (ED), Epigastric Pain (ED), Opioid Safety Activity Restrictions/Additional Instructions: return as needed. followup with your pcp. Coding Level of Care Code ED Asphalt Patcher for Shellie Guallpa
--- NOTE | 2021-03-22 13:00 | XR_ITS ---
WS: [id number] XR chest 1V portable [id number] REASON FOR EXAM: chest pain FINDINGS: Compared to previous examination of 02/11/2021 there appears to be subtle increased opacity, interstit ial, in the lung bases. The remainder of the chest is unchanged compared to the previous examination. XR/XR chest 1V portable [id number] IMPRESSION: Equivocal findings. Early congestive failure versus early pneumonitis, follow-u p chest x-ray recommended.
--- NOTE | 2021-03-22 13:01 | ECG_ITS ---
[facility] Test Date: 2021-03-22 Pat Name: Latesha Wilhelm Department: Room: Gender: Female Weed Thinner: : 1965 Requested By: Anshul Ames Order Number: [id number] Reading MD: JADON CHAMBERS Measurements Intervals [place] Rate: 85 P: 49 [place]: 145 QRS: 3 QRSD: 100 T: 37 QT: 368 QTc: 440 Interpretive Statements SINUS RHYTHM POSSIBLE LEFT ATRIAL ENLARGEMENT [-0.1mV P-WAVE IN V1/V2] Compared to ECG 12/31/2020 22:24:42 No significant changes Electronically Signed On 03-22-2021 20:19:38 CDT by JADON CHAMBERS [id number]
[2021-03-22 13:38] VITALS: BP 130/77; PULSE 88; RESP 16; O2SAT 92
[2021-03-22] MEDS: lidocaine 2% viscous 15 ML, aluminum-mag hydrox-simethicon 30 ML, sucralfate oral liq 1 GM PO (13:55)
[2021-03-22] MEDS: acetaminophen 325 mg Tablet 650 MG PO (13:56)
[2021-03-22] MEDS: ondansetron 2 mg/ML SDV 2 mL 4 MG IM (14:46)
--- NOTE | 2021-03-22 15:01 | ECG_ITS ---
[facility] Test Date: 2021-03-22 Pat Name: Latesha Wilhelm Department: Room: Gender: Female Yoga Coordinator: : 1965 Requested By: Anshul Ames Order Number: [id number] Reading MD: JADON CHAMBERS Measurements Intervals [place] Rate: 81 P: 55 IA: 149 QRS: 42 QRSD: 89 T: 47 QT: 362 QTc: 423 Interpretive Statements SINUS RHYTHM POSSIBLE LEFT ATRIAL ENLARGEMENT [-0.1mV P-WAVE IN V1/V2] Compared to ECG 03/22/2021 13:41:23 No significant changes Electronically Signed On 03-22-2021 20:23:05 CDT by JADON CHAMBERS [id number]
[2021-03-22 15:08] LABS: NT Pro B Type Natriuretic Pept 78 pg/mL (0-125); Procalcitonin 0.05 ng/mL (0-0.5); Thyroid Stimulating Hormone 1.12 uIU/mL (0.27-4.20)
[2021-03-22 15:12] VITALS: RESP 18
[2021-03-22] MEDS: morphine 4 mg/mL SDV 1 mL IM (15:12)
[2021-03-22 15:19] LABS: Alanine Aminotransferase 10 U/L (0-33); Alkaline Phosphatase 123 IU/L (35-105); Aspartate Amino Transferase 12 U/L (0-32); Blood Urea Nitrogen 11 mg/dL (6-20); Calcium 9.2 mg/dL (8.5-10.5); Carbon Dioxide 18 mmol/L (22-29); Chloride 106 mmol/L (98-107); Glomerular Filtration Rate 65.5 mL/min (90-130); Glucose 95 mg/dL (65-115); Lipase 20 U/L (13-60); Osmolality Calculated 285 mOsm/kg (285-295); Sodium 138 mmol/L (136-145); Total Bilirubin 0.2 mg/dL (0.15-1.2)
[2021-03-22 15:21] LABS: Anion Gap 18.4 (5-19); Potassium 4.4 mmol/L (3.5-5.1)
[2021-03-22 15:34] LABS: Basophils # 0.1 10^3/uL (0.0-0.1); Eosinophils # 0.3 10^3/uL (0.0-0.8); Eosinophils % 3.5 %; Hematocrit 45.8 % (37.0-47.0); Hemoglobin 14.6 g/dL (11.5-15.3); Lymphocytes # 2.5 10^3/uL (0.8-4.8); Lymphocytes % 25.8 %; Mean Corpuscular HGB Conc 31.9 g/dL (30.0-36.0); Mean Corpuscular Hemoglobin 30.7 pg (28.0-34.0); Mean Corpuscular Volume 96.2 fl (81-99); Monocytes # 0.8 10^3/uL (0.2-0.9); Monocytes % 7.9 %; Neutrophils # 6.05 10^3/uL (1.8-7.7); Neutrophils % 61.6 %; Nucleated Red Blood Cells % 0 %; Platelet Count 190 10^3/cmm (130-400); Red Blood Count 4.76 10^6/uL (4.1-5.3); Red Cell Distribution Width 16.2 % (12.1-15.1); White Blood Count 9.8 10^3/uL (4.0-10.0)
[2021-03-22] MEDS: dicyclomine 10 mg Capsule PO (16:08)
[2021-03-22] MEDS: nitroglycerin 0.4 mg sublingual Tablet SUBLINGUAL (16:09)
[2021-03-22 16:10] VITALS: BP 130/89; PULSE 92; RESP 16; O2SAT 95
[2021-03-22 17:00] LABS: Troponin(5th) Baseline 6 ng/L (0-10)
[2021-03-22 17:16] LABS: Troponin 5 2HR Delta 0 ABS# (0-10)
--- NOTE | 2021-03-22 17:39 | CTR_ITS ---
PROCEDURE INFORMATION: Exam: CT Chest Without Contrast; Diagnostic Exam date and time: 03/22/2021 5:39 PM Age: 55 years old Clinical indication: Nausea and vomiting; Abdominal pain; Angina; Sternal or substernal pain; Prior surgery; Surgery type: Hyst, gb, appy; Additional info: Epigastric and chest pain TECHNIQUE: Imaging protocol: Diagnostic computed tomography of the chest without contrast. Radiation optimization: All CT scans at this facility use at least one of these dose optimization techniques: automated exposure control; mA and/or kV adjustment per patient size (includes targeted exams where dose is matched to clinical indication); or iterative reconstruction. COMPARISON: CT angio chest PE protcl [id number] 02/11/2021 3:39 AM RADIATION DOSE METRICS: Total DLP (mGy-cm): 1698.98 FINDINGS: Lungs: See Lymph nodes finding. Pleural spaces: Unremarkable. No pneumothorax. No pleural effusion. Heart: Unremarkable. No cardiomegaly. No pericardial effusion. Aorta: Calcification of the thoracic aorta and/or great vessels consistent with atherosclerotic vessel disease. Lymph nodes: Calcified left hilar nodes and/or mediastinal nodes and/or lung granulomas consistent with old granulomatous disease. Bones/joints: Mild thoracic spondylosis. Soft tissues: Unremarkable. IMPRESSION: No acute findings. PROCEDURE INFORMATION: Exam: CT Abdomen And Pelvis Without Contrast Exam date and time: 03/22/2021 5:39 PM Age: 55 years old Clinical indication: Nausea and vomiting; Abdominal pain; Angina; Sternal or substernal pain; Prior surgery; Surgery type: Hyst, gb, appy; Additional info: Epigastric and chest pain TECHNIQUE: Imaging protocol: Computed tomography of the abdomen and pelvis without contrast. Radiation optimization: All CT scans at this facility use at least one of these dose optimization techniques: automated exposure control; mA and/or kV adjustment per patient size (includes targeted exams where dose is matched to clinical indication); or iterative reconstruction. COMPARISON: CT angio chest PE protcl [id number] 02/11/2021 3:39 AM RADIATION DOSE METRICS: Total DLP (mGy-cm): 1698.98 FINDINGS: Liver: Normal. No mass. Gallbladder and bile ducts: Stable cholecystectomy. Pancreas: Normal. No ductal dilation. Spleen: Normal. No splenomegaly. Adrenal glands: Normal. No mass. Kidneys and ureters: One or more nonobstructing right renal calyceal stones. Stomach and bowel: Unremarkable. No obstruction. No mucosal thickening. Appendix: No evidence of appendicitis. Intraperitoneal space: Unremarkable. No free air. No significant fluid collection. Vasculature: Calcification of the abdominal aorta and/or iliac arteries consistent with atherosclerotic vessel disease. Lymph nodes: Unremarkable. No enlarged lymph nodes. Urinary bladder: Unremarkable as visualized. Reproductive: Status post hysterectomy. Bones/joints: Moderate to severe lower lumbar multilevel facet arthropathy and hypertrophy. Soft tissues: Previous left inguinal hernia repair. CT/CT chest abd pel wo con IMPRESSION: No acute findings. Radiation Dose CTDIVOL = (mGy): DLP = 1698.98~1698.98 (mGy-cm)
[2021-03-22 20:08] VITALS: PULSE 89; RESP 16; O2SAT 94
== END 2021-03-22 20:09 | disposition home or self-care (01) ==
PROVIDERS: Emergency Provider Emergency Medicine; PCP Registered Nurse
DX: R52 Pain, unspecified (principal); J44.9 Chronic obstructive pulmonary disease, unspecified; Z77.22 Contact with and (suspected) exposure to environmental tobacco smoke (acute) (chronic)
CPT/HCPCS: 36415; 71045; 71250; 74176; 80053; 83690; 83880; 84145; 84443; 84484; 85025; 93005; 96372; 99283; J2270; J2405

== ENCOUNTER → 2021-03-25 08:10 | Outpatient (BNVA) | payer MEDICARE, MEDICAID, SELFPAY | PROVIDERS: PCP Registered Nurse; Visit Provider Nurse Practitioner | DX: F60.3 Borderline personality disorder (principal); F25.0 Schizoaffective disorder, bipolar type; G24.01 Drug induced subacute dyskinesia | CPT/HCPCS: 99214 ==

== ENCOUNTER 2021-04-01 10:24 | Inpatient (IN) | payer MEDICARE, MEDICAID, SELFPAY ==
[2021-04-01 10:24] VITALS: BMI 33.3
--- NOTE | 2021-04-01 11:05 | ECG_ITS ---
Test Date: 2021-04-01 Pat Name: Latesha Wilhelm Department: Room: Gender: Female Records Management Assistant: : 1965 Requested By: Hood Angel Order Number: [id number] Jenkins MD: Freida Sampson M.D. Measurements Intervals [place] Rate: 80 P: 56 NE: 152 QRS: 55 QRSD: 95 T: 57 QT: 395 QTc: 456 Interpretive Statements SINUS RHYTHM INDETERMINATE AXIS Compared to ECG 03/22/2021 15:14:19 Indeterminate axis now present Electronically Signed On 04-02-2021 5:43:42 CDT by Freida Sampson M.D. [id number]
--- NOTE | 2021-04-01 11:11 | ED_ITS ---
HPI - Psych General: Chief Complaint: Psychiatric Symptoms Stated Complaint: SI Time Seen by Provider: 04/01/21 10:30 History of Present Illness: HPI Narrative: This patient presents to our emergency department because she feels sad and depressed. She states that her symptoms have worsened over the past several days. She has had suicidal thoughts over the last 24 hours. She denies any specific plans but she has attempted suicide once previously approximately 4 years ago with overdose. She states she has seasonal affective disorder and the current change has altered in how she feels. She lives with her spouse but has no other local family members. She was transported to the emergency department by her spouse. She states she has been faithful to all her medications. She denies alcohol street drugs. She states that she has had mild cough and wheezing over the past few days that she has been using her her inhalers for. She is also been recently treated for urinary tract infection. She is fully immunized against Covid. Her desire is to be admitted to a facility for further mental health evaluation and care. complaint: suicidal ideation and feels depressed Duration: getting worse If self harm: admits thoughts of self harm Review of Systems Eyes: Denies: change in vision ENMT: Denies: throat pain or nasal congestion Card: Denies: chest pain or palpitations Resp: Reports: productive cough and wheezing : Denies: flank pain or dysuria Musc: Denies: neck pain, back pain, extremity pain or extremity swelling Neuro: Denies: headache(s), numbness in extremities, weakness in extremities, sensory changes or lack of coordination Endo: Denies: polyuria or polydipsia PFS ED PFSH: Medical History Bladder stone Borderline personality disorder Chronic anxiety Chronic back pain greater than 3 months duration Chronic gastritis without bleeding COPD (chronic obstructive pulmonary disease) Cystitis cystica Dysphagia Esophageal stricture Foreign body in bladder GERD without esophagitis Neurogenic bladder Psychiatric care Restrictive lung disease Schizoaffective disorder, bipolar type Tardive dyskinesia Urgency incontinence Surgical History H/O bladder repair surgery MESH REPAIR H/O colonoscopy with polypectomy H/O esophagogastroduodenoscopy (09/21/20) H/O: hysterectomy History of appendectomy History of breast biopsy History of foot surgery sx in 2009. Screws placed by Dr. Don. History of ureter stent Hx of cholecystectomy S/P bronchoscopy with biopsy Family History Mother No problems noted. Father No problems noted. Other Asthma Cancer Diabetes Heart disease Social History Quit status (tobacco): considering quitting Second hand smoke exposure: Yes Smoking risk assessment/counseling performed?: No Alcohol intake: never Counseling given: No Counseling given: No Lives independently: Yes Household members: spouse Marital status: Number of children: 3 Current occupational status: disabled History of recent travel: No Current gender identity: Female Female Reproductive History: Date of last menstrual period: 06/19/95 Physical Exam Narrative: EXAM NARRATIVE: She makes good eye contact. Speech is goal directed. Affect is flat. Const: COMMON NORMALS: no acute distress, patient oriented x3 and alert ORIENTATION/CONSCIOUSNESS: Yes oriented to person, Yes oriented to place and Yes oriented to time HENMT: COMMON NORMALS: Normal external nose present FACE & SINUS: normal facial exam; no sinus tenderness NOSE: Normal external nose present MOUTH: Normal oral and palatal mucosa present THROAT: tonsils normal and uvula midline Eye: COMMON NORMALS: Equal, round and reactive pupils present and no scleral icterus PUPIL: Yes Equal, round and reactive pupils present Neck/C-Spine: COMMON NORMALS: full ROM and no lymphadenopathy CAROTIDS: No bruit Lymph: LYMPHATIC: no lymphadenopathy noted Resp: COMMON NORMALS: normal respiratory effort and No retractions EFFORT & INSPECTION: Yes able to speak in complete sentences AUSCULTATION: rhonchi and wheezes expiratory wheezes GI: COMMON NORMALS: Normal to inspection, nondistended, normoactive bowel sounds present and Soft to palpation PALPATION: Yes Soft to palpation : COMMON NORMALS: Yes no CVA tenderness BLADDER/KIDNEY EXAM: Yes no CVA tenderness Back/Pelvis: COMMON NORMALS: no CVA tenderness and thoracic and lumbar spine normal to inspection THORACIC SPINE/UPPER BACK: Yes normal to inspection Extremity: COMMON NORMALS: normal to inspection, capillary refill normal, no calf tenderness and no pedal edema GENERAL: Yes normal exam except as noted Neuro: COMMON NORMALS: patient oriented x3 SENSORIUM/ORIENTATION: Yes alert, Yes oriented to person, Yes oriented to place and Yes oriented to time CRANIAL NERVES: Yes CN normal except as noted SPEECH: speech normal SENSORY EXAM: No sensory level loss detected MOTOR EXAM: 5/5 motor strength present throughout Psych: COMMON NORMALS: Normal thought process present and cooperative APPEARANCE: Yes grossly normal ATTITUDE: Yes calm MOOD & AFFECT: Yes depressed mood THOUGHT PROCESS: Normal thought process present THOUGHT CONTENT: Yes Normal thought content present, Yes Suicidality present, No Homicidality present, No Hallucination(s) present, No Compulsions present (thought content) and No Obsession(s) present ATTENTION/CONCENTRATION: Yes attention grossly intact INSIGHT: Good insight present (Psych) Course Reevaluation(s): Reevaluation #1: Repeat examination reveals her to remain alert and cooperative. Repeat chest examination reveals much better air movement with markedly decreased rhonchi and wheezes. I believe that she is medically stable for inpatient mental health admission for evaluation and treatment as indicated. Consultations: Consultation #1: Discussed with on-call psychiatrist Dr. Castellanos who agrees to accept the patient. Vital Signs: Vital signs: Vital Signs Pulse Rate 80 04/01/21 11:47 Respiratory Rate 17 04/01/21 11:45 Pulse Oximetry 95 04/01/21 11:45 MDM - Psych Lab Data: Labs: Lab Results 3 04/01/21 04/01/21 04/01/21 10:50 11:35 12:00 WBC Corrected WBC RBC Hgb Hct MCV MCH MCHC RDW Plt Count MPV Gran % Neut % (Auto) Lymph % (Auto) [place] % (Auto) Eos % (Auto) Baso % (Auto) Neut # (Auto) Lymph # (Auto) [place] # (Auto) Eos # (Auto) Baso # (Auto) Absolute Gran (aut o) Nucleated RBC % (a uto) Nucleated RBCs # Sodium 138 mmol/L mmol/L (136-145) Chloride 106 mmol/L mmol/L (98-107) BUN 10 mg/dL mg/dL (6-20) Creatinine 0.7 mg/dL mg/dL (0.5-0.9) Calculated Osmolal ity 286 mOsm/kg mOsm/ kg (285-295) Calcium 9.5 mg/dL mg/dL (8.5-10.5) Urine Color Yellow (Yellow) Urine Appearance Clear (CLEAR) Urine pH 5 (5-7) Ur Specific Gravit y 1.015 (1.005-1.030) Urine Protein Neg (Negative) Urine Glucose (UA) Norm (Normal) Urine Ketones Negative (Negative) Urine Blood Neg (Negative) Urine Nitrate Negative (Negative) Urine Bilirubin Neg (Negative) Urine Urobilinogen Norm mg/dL mg/dL (Negative) Ur Leukocyte Stephanie ase Negative (Negative) Urine RBC None /hpf /hpf (0-2) Urine WBC None /hpf /hpf (0-5) Ur Squamous Epith Cells 0-4 /hpf H /hpf (0-5) Amorphous Sediment Not Reportable Urine Bacteria Trace /hpf /hpf (NONE) SARS-CoV-2 Ag (Rap id) Negative (Negative) 04/01/21 04/01/21 12:06 12:47 WBC Cancelled 7.4 10^3/uL 10^3/ uL (4.0-10.0) Corrected WBC Cancelled RBC Cancelled 4.60 10^6/uL 10^6 /uL (4.1-5.3) Hgb Cancelled 14.2 g/dL g/dL (11.5-15.3) Hct Cancelled 43.9 % % (37.0-47.0) MCV Cancelled 95.4 fl fl (81-99) MCH Cancelled 30.9 pg pg (28.0-34.0) MCHC Cancelled 32.3 g/dL g/dL (30.0-36.0) RDW Cancelled 15.7 % H % (12.1-15.1) Plt Count Cancelled 216 10^3/cmm 10^3 /cmm (130-400) MPV Cancelled 10.3 fL fL (7.4-10.4) Gran % Cancelled Neut % (Auto) Cancelled 58.6 % % Lymph % (Auto) Cancelled 28.9 % % [place] % (Auto) Cancelled 8.0 % % Eos % (Auto) Cancelled 3.2 % % Baso % (Auto) Cancelled 0.9 % % Neut # (Auto) Cancelled 4.33 10^3/uL 10^3 /uL (1.8-7.7) Lymph # (Auto) Cancelled 2.1 10^3/uL 10^3/ uL (0.8-4.8) [place] # (Auto) Cancelled 0.6 10^3/uL 10^3/ uL (0.2-0.9) Eos # (Auto) Cancelled 0.2 10^3/uL 10^3/ uL (0.0-0.8) Baso # (Auto) Cancelled 0.1 10^3/uL 10^3/ uL (0.0-0.1) Absolute Gran (aut o) Cancelled Nucleated RBC % (a uto) Cancelled 0 % % Nucleated RBCs # Cancelled 0.0 /100WBC /100W BC Sodium Chloride BUN Creatinine Calculated Osmolal ity Calcium Urine Color Urine Appearance Urine pH Ur Specific Gravit y Urine Protein Urine Glucose (UA) Urine Ketones Urine Blood Urine Nitrate Urine Bilirubin Urine Urobilinogen Ur Leukocyte Stephanie ase Urine RBC Urine WBC Ur Squamous Epith Cells Amorphous Sediment Urine Bacteria SARS-CoV-2 Ag (Rap id) Discharge Plan Discharge Patient Disposition: Admitted As Inpatient Clinical Impression: Adjustment disorder with depressed mood Chronic bronchitis Qualifiers: Chronic bronchitis type: simple Qualified Code(s): J41.0 - Simple chronic bronchitis Condition: Stable Coding Level of Care Code ED Suture Winder Hand for [place] Fwd Exam Comprehensive
[2021-04-01 11:45] VITALS: PULSE 79; RESP 17; O2SAT 95
[2021-04-01] MEDS: ipratropium-albuterol 3 mL Neb INHALATION (11:45)
[2021-04-01 11:47] VITALS: PULSE 80
[2021-04-01 12:08] LABS: Bacteria Urine TRACE /hpf; Bilirubin Urine Neg (Negative); Blood Urine Neg (Negative); Glucose Urine UA Norm (Normal); Ketones Urine Negative (Negative); Leukocyte Esterase Urine Negative (Negative); Nitrate Urine Negative (Negative); Protein Urine Neg (Negative); Specific Gravity, Urine 1.015 (1.005-1.030); Squamous Epithelial Cell Urine 0-4 /hpf (0-5); Urine Appearance Clear (CLEAR); Urine Color Yellow (Yellow); Urobilinogen Urine Norm (Negative); pH Urine 5 (5-7)
[2021-04-01] MEDS: ondansetron 4 MG Tablet PO (12:08)
[2021-04-01 12:09] LABS: Add Urine Culture? No
[2021-04-01 12:38] LABS: SARS Covid-2 Antigen Negative (Negative)
[2021-04-01 12:42] LABS: Blood Urea Nitrogen 10 mg/dL (6-20); Calcium 9.5 mg/dL (8.5-10.5); Carbon Dioxide 18 mmol/L (22-29); Chloride 106 mmol/L (98-107); Glomerular Filtration Rate 87.5 mL/min (90-130); Glucose 116 mg/dL (65-115); Osmolality Calculated 286 mOsm/kg (285-295); Sodium 138 mmol/L (136-145)
[2021-04-01 12:53] LABS: Basophils # 0.1 10^3/uL (0.0-0.1); Basophils % 0.9 %; Eosinophils # 0.2 10^3/uL (0.0-0.8); Eosinophils % 3.2 %; Hematocrit 43.9 % (37.0-47.0); Hemoglobin 14.2 g/dL (11.5-15.3); Lymphocytes # 2.1 10^3/uL (0.8-4.8); Lymphocytes % 28.9 %; Mean Corpuscular HGB Conc 32.3 g/dL (30.0-36.0); Mean Corpuscular Hemoglobin 30.9 pg (28.0-34.0); Mean Corpuscular Volume 95.4 fl (81-99); Mean Platelet Volume 10.3 fL (7.4-10.4); Monocytes # 0.6 10^3/uL (0.2-0.9); Neutrophils # 4.33 10^3/uL (1.8-7.7); Neutrophils % 58.6 %; Nucleated Red Blood Cells % 0 %; Platelet Count 216 10^3/cmm (130-400); Red Cell Distribution Width 15.7 % (12.1-15.1); White Blood Count 7.4 10^3/uL (4.0-10.0)
[2021-04-01 12:59] LABS: Acetaminophen < 5.0 ug/mL (10-30); Alcohol Level < 10 mg/dL (0-10); Salicylate < 0.3 mg/dL (3-10)
[2021-04-01 14:00] VITALS: BP 128/63; PULSE 81; RESP 17; TEMP 36.7; O2SAT 97
[2021-04-01] MEDS: acetaminophen 325 mg Tablet 650 MG PO (16:00)
--- NOTE | 2021-04-01 16:45 | PC.NURSE ---
PRN VISTARIL 50 MG GIVEN PO PER PT C/O STATED ANXIETY
[2021-04-01] MEDS: hyDROXYzine 25 mg Capsule 50 MG PO (16:48)
--- NOTE | 2021-04-01 17:17 | PC.RESP ---
Pt evaluated for o2 needs on the floor here at the hospital. O2 saturations remained > 94% walking and resting. After an extensive walk, Latesha dropped to 90%. Pt still to be evaluated nocturnally.
[2021-04-01 19:51] LABS: Amphetamines Screen Urine Negative (Negative); Barbiturates Screen Urine Negative (Negative); Benzodiazepines Screen Urine Negative (Negative); Cocaine Screen Urine Negative (Negative); Opiate Screen Urine Positive (Negative); PCP Screen Urine Negative (Negative); THC Screen Urine Positive (Negative)
[2021-04-01 22:00] VITALS: BP 128/63; PULSE 81; RESP 17; TEMP 36.7; O2SAT 94
[2021-04-01 23:00] VITALS: O2SAT 95
[2021-04-01 23:03] VITALS: O2SAT 94
[2021-04-02 06:00] VITALS: BP 99/62; PULSE 86; RESP 17; TEMP 36.4; O2SAT 94
[2021-04-02] MEDS: OLANZapine 5 mg ODT PO ×2 (10:50→22:07)
--- NOTE | 2021-04-02 12:31 | PM.NHP ---
Providers/Chief Complaint Admitting Physician: Silas Castellanos MD Primary Care Provider: AMANDEEP Barclay Chief Complaint: SI HPI NPU History of Present Illness Latesha Wilhelm is a 55 year old female who presented to the emergency department with the following report: Chief Complaint: Psychiatric Symptoms Stated Complaint: SI Time Seen by Provider: 04/01/21 10:30 History of Present Illness: HPI Narrative: This patient presents to our emergency department because she feels sad and depressed. She states that her symptoms have worsened over the past several days. She has had suicidal thoughts over the last 24 hours. She denies any specific plans but she has attempted suicide once previously approximately 4 years ago with overdose. She states she has seasonal affective disorder and the current change has altered in how she feels. She lives with her spouse but has no other local family members. She was transported to the emergency department by her spouse. She states she has been faithful to all her medications. She denies alcohol street drugs. She states that she has had mild cough and wheezing over the past few days that she has been using her her inhalers for. She is also been recently treated for urinary tract infection. She is fully immunized against Covid. Her desire is to be admitted to a facility for further mental health evaluation and care. complaint: suicidal ideation and feels depressed Duration: getting worse If self harm: admits thoughts of self harm. She was admitted to the neuropsychiatric unit for definitive treatment of those issues. She is known to the [facility] system through inpatient and outpatient services for many years. She presents today reporting that additionally she has been on different medications. She reports that she was started on Celexa 1 to 2 months ago. She reports that there is a seasonal aspect of her depression and when he gets to this time the year and the days get shorter and gets darker she often starts to feel worse. She reports that that has happened again and she finds her self breast without any real cause. She reports he just started having more suicidal thoughts. She reports that her Zyprexa was decreased secondary to worsening EPS/tardive dyskinesia. That was about 2 weeks ago. She reports otherwise there have not been major changes. She still with her of 17 years they live in the same location for a year and a half to endorses smoking a half a pack of cigarettes a day, denies alcohol endorses marijuana occasionally and only endorses opiates as illicit drug use without in the past. Never been to rehab and never had a DUI. We discussed the risk benefits alternatives of increasing her Celexa to 40 mg p.o. every morning and she understood and agreed to proceed as is documented in this note. An excerpt of her last hospitalization on 09/26/2020 is included below for context as has had no substantive changes since then. Per her 09/26/2020 [facility] inpatient psychiatric evaluation: History of Present Illness Latesha Wilhelm is a 54 year old female with history of schizoaffective disorder and borderline personality disorder with frequent hospitalizations secondary to chronic medical issues [facility] complaining of suicidal ideation with concerns that she may try to harm herself by overdose with her trazodone. Patient intermittently is admitted to this unit with same complaint of suicidal ideation with thoughts about overdosing with last psychiatric hospitalization in the last 3 months on this unit during which time she immediately asked to discharge. Patient also typically complains of stress of living with an alcoholic . Patient reports intermittent depressive symptoms related to her chronic medical issues, I am sick and tired of being sick and tired. Patient currently denying any suicidal ideation although she continues to report intermittent depressive symptoms. Patient denies any psychotic symptoms, denies any auditory or visual hallucinations. Patient recently admitted with complaint of gastritis and recently had endoscopy. She also reports being discharged from a hospitalization a couple weeks ago secondary to pneumonia. She currently only complains of musculoskeletal aches and pains. She occasionally reports some shortness of breath which is relieved with supplemental oxygen. Patient reports being compliant with her medication at home and denies any medication side effects. Meds NPU Home Medications Medication Instructions Recorded Confirmed Last Taken Type acetaminophen [Tylenol Arthritis 1,000 mg PO Q6H PRN 03/11/20 04/01/21 11/09/20 16:00 History Pain] Breo Ellipta 1 inh INHALATION DAILY@0600 09/09/20 04/01/21 03/31/21 History albuterol sulfate 2 puff INHALATION Q6H PRN 09/26/20 04/01/21 11/09/20 16:00 History ipratropium-albuterol 3 ml INHALATION Q4H PRN 09/26/20 04/01/21 11/07/20 14:00 History ondansetron HCl 4 mg tablet 4 mg PO QID PRN #14 tab 02/17/21 04/01/21 Unknown Rx olanzapine 5 mg tablet 5 mg PO BEDTIME tab 03/03/21 04/01/21 03/31/21 History citalopram 20 mg tablet 20 mg PO DAILY #30 tab 03/22/21 04/01/21 03/31/21 Rx nystatin 100,000 unit/gram topical 1 applic TOPICAL BID #60 g 03/30/21 04/01/21 Unknown Rx powder lorazepam [Ativan] 0.5 mg PO BEDTIME PRN 04/01/21 04/01/21 Unknown History nitrofurantoin monohyd/m-cryst 100 mg PO BID 04/01/21 04/01/21 04/01/21 History fluticasone propionate 1 spray INTRANASAL BID 04/03/21 04/02/21 03/31/21 09:00 History lamotrigine 200 mg PO DAILY 04/03/21 04/03/21 04/01/21 History pantoprazole 40 mg PO DAILY 04/03/21 04/03/21 04/01/21 History trazodone 300 mg PO BEDTIME 04/03/21 04/03/21 03/31/21 History valbenazine [Ingrezza] 80 mg PO DAILY 04/03/21 04/03/21 04/01/21 History Allergies Allergy/AdvReac Type Severity Reaction Status Date / Time Penicillins Allergy Severe ALGY-Anaphy Verified 03/22/21 12:44 laxis sulfamethoxazole Allergy Severe ALGY-Hives Verified 03/22/21 12:44 [From Bactrim] Tetracyclines Allergy Severe ALGY-Hives Verified 03/22/21 12:44 gabapentin [From Neurontin] Allergy Intermediate ADR-Halluci Verified 03/22/21 12:44 nating ketorolac [From Toradol] Allergy Intermediate ALGY-Rash Verified 03/22/21 12:44 lithium Allergy Intermediate ADR-Halluci Verified 03/22/21 12:44 nating fentanyl Allergy Mild rash Verified 03/22/21 12:44 adhesive tape Allergy Rash Verified 03/22/21 12:44 codeine Allergy GI Verified 03/22/21 12:44 duloxetine [From Cymbalta] Allergy ALGY-Rash Verified 03/22/21 12:44 fluoxetine Allergy ADR-Migrain Verified 03/22/21 12:44 e haloperidol [From Haldol] Allergy unknown Verified 03/22/21 12:44 metoclopramide [From Reglan] Allergy ADR-Shakine Verified 03/22/21 12:44 ss quetiapine [From Seroquel] Allergy Unknown Verified 03/22/21 12:44 tramadol Allergy Unknown Verified 03/22/21 12:44 trimethoprim [From Bactrim] Allergy ALGY-Hives Verified 03/22/21 12:44 ziprasidone [From Geodon] AdvReac Severe ADR-Halluci Verified 03/22/21 12:44 nating risperidone [From Risperdal] AdvReac ADR-Halluci Verified 03/22/21 12:44 nating PFSH NPU PFSH: Medical History Bladder stone Borderline personality disorder Chronic anxiety Chronic back pain greater than 3 months duration Chronic gastritis without bleeding COPD (chronic obstructive pulmonary disease) Cystitis cystica Dysphagia Esophageal stricture Foreign body in bladder GERD without esophagitis Neurogenic bladder Psychiatric care Restrictive lung disease Schizoaffective disorder, bipolar type Tardive dyskinesia Urgency incontinence Surgical History H/O bladder repair surgery MESH REPAIR H/O colonoscopy with polypectomy H/O esophagogastroduodenoscopy (09/21/20) H/O: hysterectomy History of appendectomy History of breast biopsy History of foot surgery sx in 2009. Screws placed by Dr. Don. History of ureter stent Hx of cholecystectomy S/P bronchoscopy with biopsy Family History Mother No problems noted. Father No problems noted. Other Asthma Cancer Diabetes Heart disease Social History Quit status (tobacco): considering quitting Second hand smoke exposure: Yes Smoking risk assessment/counseling performed?: No Alcohol intake: never Counseling given: No Counseling given: No Lives independently: Yes Household members: spouse Marital status: Number of children: 3 Current occupational status: disabled History of recent travel: No Current gender identity: Female Mental Status Exam MSE Comments: This is an obese white female in hospital scrubs with limited grooming and adequate eye contact. Absent dentition. No abnormal movements except for psychomotor retardation. Cooperative with exam in mild distress. Speech was decreased rate and volume. Mood was described as depressed affect congruent. Thought process organized. Thought content: Patient endorsed suicidal ideation but denied homicidal ideation, there were no delusions reported or noted, she denied any auditory visualizations. Attention and concentration were intact and memory appeared reliable but none were formally tested. Alert and oriented x3. Insight and judgment appear fair impulse control is limited. Vitals/I&O/Wt Last Vital Signs Temp 97.5 F L 04/02/21 06:00 Pulse 86 04/02/21 06:00 Resp 17 04/02/21 06:00 BP 99/62 04/02/21 06:00 Pulse Ox 94 04/02/21 06:00 Weight last 48 hrs Weight 90.718 kg Data NPU : 04/01/21 12:47 04/01/21 12:00 A&P Assessment and plan (1) Tardive dyskinesia: Status: Acute (2) Avascular necrosis of femoral head: Status: Acute (3) GERD without esophagitis: Status: Acute (4) Esophageal stricture: Status: Acute (5) Abdominal pain: Status: Acute (6) Depression: Status: Acute Qualifiers: Depression Type: unspecified Qualified Code(s): F32.9 - Major depressive disorder, single episode, unspecified (7) Pain in left foot: Status: Acute (8) Chronic respiratory failure with hypoxia: Status: Acute (9) Chronic bronchitis: Status: Acute Qualifiers: Chronic bronchitis type: simple Qualified Code(s): J41.0 - Simple chronic bronchitis (10) Cigarette nicotine dependence: Status: Acute Qualifiers: Substance use status: uncomplicated Qualified Code(s): F17.210 - Nicotine dependence, cigarettes, uncomplicated (11) History of bladder stone: Status: Acute (12) Cystitis cystica: Status: Acute (13) Left thyroid nodule: Status: Acute (14) Chronic nausea: Status: Acute (15) Alkaline phosphatase elevation: Status: Acute (16) Leukocytosis: Status: Acute Qualifiers: Leukocytosis type: unspecified Qualified Code(s): D72.829 - Elevated white blood cell count, unspecified (17) Borderline personality disorder: Status: Acute (18) Schizoaffective disorder, bipolar type: Status: Acute (19) Cannabis abuse: Status: Acute (20) Opioid abuse: Status: Acute Additional A&P Information This is a 55-year-old white female with a long history of mental health and addiction issues who presents reporting that her mood has worsened as it has at times in the past with the change in seasons with some apparent active addiction secondary to her UDS. 1. Continue current medication. 2. Continue every 15 minute checks for safety. 3. Encourage individual, group and milieu therapies. 4. Encourage sober living treatment after discharge at the highest level of care to which he is willing to commit. Involuntary Hold Information 96 Hour Hold: 96 Hour Involuntary Admission: No Attestations NPU Medical Necessity Statement*: Inpatient hospitalization is medically necessary, and the clinically appropriate intervention at this time. We will initiate medications and monitor, and make changes as indicated. She will be in the hospital for over two midnights. Likely length of stay 3 to 5 days. Coding Level of Care Code Acute Information Assurance for Shellie Guallpa Diagnoses Tardive dyskinesia G24.01 Avascular necrosis of femoral head M87.059 GERD without esophagitis K21.9 Esophageal stricture K22.2 Abdominal pain R10.9 Depression F32.9 Depression Type: unspecified Pain in left foot M79.672 Chronic respiratory failure with hypoxia J96.11 Chronic bronchitis J41.0 Chronic bronchitis type: simple Cigarette nicotine dependence F17.210 Substance use status: uncomplicated History of bladder stone Z87.448 Cystitis cystica N30.80 Left thyroid nodule E04.1 Chronic nausea R11.0 Alkaline phosphatase elevation R74.8 Leukocytosis D72.829 Leukocytosis type: unspecified Borderline personality disorder F60.3 Schizoaffective disorder, bipolar type F25.0 Cannabis abuse F12.10 Opioid abuse F11.10
[2021-04-02 13:38] VITALS: BP 117/79; PULSE 85; RESP 17; TEMP 36.4; O2SAT 97
[2021-04-02 14:00] VITALS: BP 111/78; PULSE 68; RESP 17; TEMP 37.1; O2SAT 98
--- NOTE | 2021-04-02 14:51 | PC.RESP ---
SMOKING CESSATION AND PULMONARY REHAB INFORMATION SENT TO PATIENT.
[2021-04-02] MEDS: acetaminophen 325 mg Tablet 650 MG PO (14:54)
[2021-04-02 20:43] VITALS: PULSE 63; RESP 17; TEMP 36.6; O2SAT 96
[2021-04-02 22:00] VITALS: BP 111/78; PULSE 63; RESP 17; TEMP 36.6; O2SAT 96
[2021-04-02] MEDS: trazodone 50 mg Tablet PO (22:07)
[2021-04-03 06:00] VITALS: RESP 18; O2SAT 95
[2021-04-03] MEDS: lamoTRIgine 100 mg Tablet 200 MG PO (09:03)
[2021-04-03] MEDS: citalopram 20 mg Tablet 40 MG PO (09:03)
[2021-04-03] MEDS: nitrofurantoin SR (BID) 100 mg Capsule PO (09:03)
[2021-04-03] MEDS: pantoprazole DR 40 mg Tablet PO (09:03)
[2021-04-03] MEDS: OLANZapine 5 mg ODT PO (09:07)
--- NOTE | 2021-04-03 09:13 | ECG_ITS ---
[facility] Test Date: 2021-04-03 Pat Name: Latesha Wilhelm Department: Room: 154 Gender: Female Tin Dipper: : 1965 Requested By: Silas Castellanos Order Number: [id number] Alice MD: Freida Sampson M.D. Measurements Intervals [place] Rate: 79 P: 53 NH: 138 QRS: 67 QRSD: 90 T: 51 QT: 390 QTc: 447 Interpretive Statements SINUS RHYTHM Compared to ECG 04/01/2021 11:42:07 Indeterminate axis no longer present Electronically Signed On 04-03-2021 12:22:19 CDT by Freida Sampson M.D. [id number]
[2021-04-03] MEDS: fluticasone nasal spray 16gm Btl 1 SPRAY INTRANASAL (09:18)
[2021-04-03] MEDS: nitroglycerin 0.4 mg sublingual Tablet SUBLINGUAL (09:25)
[2021-04-03 09:29] VITALS: PULSE 127; RESP 24; O2SAT 98
[2021-04-03] MEDS: albuterol 8 gm MDI 2 PUFF INHALATION (09:29)
[2021-04-03 11:29] LABS: Troponin T (5th) Once 7 ng/L (0-10)
[2021-04-03 14:00] VITALS: BP 105/67; PULSE 105; RESP 20; TEMP 35.9; O2SAT 94
--- NOTE | 2021-04-03 14:11 | PM.NDC ---
Diagnoses at Discharge Discharge Diagnosis (1) Tardive dyskinesia: Status: Acute (2) Avascular necrosis of femoral head: Status: Acute (3) GERD without esophagitis: Status: Acute (4) Esophageal stricture: Status: Acute (5) Abdominal pain: Status: Acute (6) Depression: Status: Acute Qualifiers: Depression Type: unspecified Qualified Code(s): F32.9 - Major depressive disorder, single episode, unspecified (7) Pain in left foot: Status: Acute (8) Chronic respiratory failure with hypoxia: Status: Acute (9) Chronic bronchitis: Status: Acute Qualifiers: Chronic bronchitis type: simple Qualified Code(s): J41.0 - Simple chronic bronchitis (10) Cigarette nicotine dependence: Status: Acute Qualifiers: Substance use status: uncomplicated Qualified Code(s): F17.210 - Nicotine dependence, cigarettes, uncomplicated (11) History of bladder stone: Status: Acute (12) Cystitis cystica: Status: Acute (13) Left thyroid nodule: Status: Acute (14) Chronic nausea: Status: Acute (15) Alkaline phosphatase elevation: Status: Acute (16) Leukocytosis: Status: Acute Qualifiers: Leukocytosis type: unspecified Qualified Code(s): D72.829 - Elevated white blood cell count, unspecified (17) Borderline personality disorder: Status: Acute (18) Schizoaffective disorder, bipolar type: Status: Acute (19) Cannabis abuse: Status: Acute (20) Opioid abuse: Status: Acute Reason for Visit Reason for Visit: SI Brief History: History of Present Illness Latesha Wilhelm is a 55 year old female who presented to the emergency department with the following report: Chief Complaint: Psychiatric Symptoms Stated Complaint: SI Time Seen by Provider: 04/01/21 10:30 History of Present Illness: HPI Narrative: This patient presents to our emergency department because she feels sad and depressed. She states that her symptoms have worsened over the past several days. She has had suicidal thoughts over the last 24 hours. She denies any specific plans but she has attempted suicide once previously approximately 4 years ago with overdose. She states she has seasonal affective disorder and the current change has altered in how she feels. She lives with her spouse but has no other local family members. She was transported to the emergency department by her spouse. She states she has been faithful to all her medications. She denies alcohol street drugs. She states that she has had mild cough and wheezing over the past few days that she has been using her her inhalers for. She is also been recently treated for urinary tract infection. She is fully immunized against Covid. Her desire is to be admitted to a facility for further mental health evaluation and care. complaint: suicidal ideation and feels depressed Duration: getting worse If self harm: admits thoughts of self harm. She was admitted to the neuropsychiatric unit for definitive treatment of those issues. She is known to the [facility] system through inpatient and outpatient services for many years. She presents today reporting that additionally she has been on different medications. She reports that she was started on Celexa 1 to 2 months ago. She reports that there is a seasonal aspect of her depression and when he gets to this time the year and the days get shorter and gets darker she often starts to feel worse. She reports that that has happened again and she finds her self breast without any real cause. She reports he just started having more suicidal thoughts. She reports that her Zyprexa was decreased secondary to worsening EPS/tardive dyskinesia. That was about 2 weeks ago. She reports otherwise there have not been major changes. She still with her of 17 years they live in the same location for a year and a half to endorses smoking a half a pack of cigarettes a day, denies alcohol endorses marijuana occasionally and only endorses opiates as illicit drug use without in the past. Never been to rehab and never had a DUI. We discussed the risk benefits alternatives of increasing her Celexa to 40 mg p.o. every morning and she understood and agreed to proceed as is documented in this note. An excerpt of her last hospitalization on 09/26/2020 is included below for context as has had no substantive changes since then. Per her 09/26/2020 [facility] inpatient psychiatric evaluation: History of Present Illness Latesha Wilhelm is a 54 year old female with history of schizoaffective disorder and borderline personality disorder with frequent hospitalizations secondary to chronic medical issues presented to an [facility] emergency department complaining of suicidal ideation with concerns that she may try to harm herself by overdose with her trazodone. Patient intermittently is admitted to this unit with same complaint of suicidal ideation with thoughts about overdosing with last psychiatric hospitalization in the last 3 months on this unit during which time she immediately asked to discharge. Patient also typically complains of stress of living with an alcoholic . Patient reports intermittent depressive symptoms related to her chronic medical issues, I am sick and tired of being sick and tired. Patient currently denying any suicidal ideation although she continues to report intermittent depressive symptoms. Patient denies any psychotic symptoms, denies any auditory or visual hallucinations. Patient recently admitted with complaint of gastritis and recently had endoscopy. She also reports being discharged from a hospitalization a couple weeks ago secondary to pneumonia. She currently only complains of musculoskeletal aches and pains. She occasionally reports some shortness of breath which is relieved with supplemental oxygen. Patient reports being compliant with her medication at home and denies any medication side effects. Hospital Course Hospital Course She quickly acclimated to the individual, group and milieu therapies provided. We increased her Celexa to 40 mg p.o. every morning and she had modest improvement and was very hopeful that she would feel better as days go by. She was able to contract for safety prior to discharge. During the hospitalization, patient had routine laboratory studies which were within normal limits except for few outliers. Additionally there was a general medical evaluation which was also within normal limits and revealed no new acute processes. Discharge Summary: At the time of discharge, she denied psychosis or lethality. Mood and anxiety were well managed. Patient endorsed a plan to avoid all drugs of abuse and follow-up with the aftercare recommendations of the treatment team. Patient was evaluated and deemed to be absent credible lethality, and had achieved the maximum benefit from an inpatient hospitalization, so was discharged. Involuntary Hold Information 96 Hour Hold: 96 Hour Involuntary Admission: No Mental Status Exam MSE Comments: This is an obese white female in hospital scrubs with adequate grooming and adequate eye contact. Absent dentition. No abnormal movements except for resolving psychomotor retardation. Cooperative with exam in no acute distress. Speech was more normal rate and volume. Mood was described as better, affect congruent. Thought process organized. Thought content: Patient denied suicidal or homicidal ideation, there were no delusions reported or noted, she denied any auditory visualizations. Attention and concentration were intact and memory appeared reliable but none were formally tested. Alert and oriented x3. Insight and judgment appear fair impulse control is limited. Discharge Data Data Completed and Pending: Labs from last 24 hours 04/03/21 10:18 Troponin T Gen 5 n g/L 7 Vitals: Last Vital Signs Temp 97.9 F 04/02/21 22:00 Pulse 127 H 04/03/21 09:29 Resp 24 H 04/03/21 09:29 BP 111/78 04/02/21 22:00 Pulse Ox 98 04/03/21 09:29 Discharge Plan Discharge Patient Disposition: Home Condition: Stable Prescriptions: New citalopram 20 mg Tablet 40 mg PO DAILY 30 Days Qty: 60 RF: 1 Continued olanzapine 5 mg tablet 5 mg PO BEDTIME RF: 0 ondansetron HCl [Zofran] 4 mg tablet 4 mg PO QID PRN (Reason: nausea and vomiting) Qty: 14 RF: 0 nystatin [Nystop] 100,000 unit/gram powder 1 applic topical BID Qty: 60 RF: 0 Breo Ellipta 100-25 mcg/dose blister with device 1 inh inhalation DAILY@0600 RF: 0 acetaminophen [Tylenol Arthritis Pain] 650 mg Tablet Extended Release 1,000 mg PO Q6H PRN (Reason: Pain) RF: 0 albuterol sulfate 90 mcg/actuation HFA aerosol inhaler 2 puff inhalation Q6H PRN (Reason: shortness of breath or wheezing) RF: 0 ipratropium-albuterol 0.5 mg-3 mg(2.5 mg base)/3 mL solution for nebulization 3 ml inhalation Q4H PRN (Reason: Shortness Of Breath Or Wheezing) RF: 0 lorazepam [Ativan] 0.5 mg Tablet 0.5 mg PO BEDTIME PRN (Reason: Anxiety) RF: 0 nitrofurantoin monohyd/m-cryst 100 mg capsule 100 mg PO BID RF: 0 lamotrigine 200 mg tablet 200 mg PO DAILY RF: 0 fluticasone propionate 50 mcg/actuation spray,suspension 1 spray intranasal BID RF: 0 pantoprazole 40 mg tablet,delayed release (DR/EC) 40 mg PO DAILY RF: 0 trazodone 300 mg tablet 300 mg PO BEDTIME RF: 0 Ingrezza 80 mg capsule 80 mg PO DAILY RF: 0 Discontinued citalopram [Celexa] 20 mg tablet 20 mg PO DAILY Qty: 30 RF: 1 No Action azithromycin 250 mg tablet See Rx Instructions PO .COMPLEX Qty: 6 RF: 0 ciprofloxacin-dexamethasone [Ciprodex] 0.3-0.1 % drops,suspension 4 drp otic (ear) Q12H 7 Days Qty: 7.5 RF: 0 Discharge Orders: Discharge Order (Routine); Ordered 04/03/21 Ordered By: Silas Castellanos Referrals: Odalys Sun PMHNP [Staff Physician] - 04/20/21 9:00 am Dara Tavera FNP [Primary Care Provider] - Discharge Diet: Regular Discharge Activity: Resume usual activity Patient Instructions: Opioid Safety Discharge Attestations NPU Time Spent in Discharge Care*: less than 30 min Specific Discharge Activities: Specific discharge activities: educating patient, discussing with bilingual case manager/social workers/dc planners, documenting/other paperwork and evaluating patient/reviewing data Status at Discharge: Cognitive status at discharge: cognitively intact, Behavioral status at discharge: cooperative, Coding Level of Care Code Acute [facility] note Diagnoses Tardive dyskinesia G24.01 Avascular necrosis of femoral head M87.059 GERD without esophagitis K21.9 Esophageal stricture K22.2 Abdominal pain R10.9 Depression F32.9 Depression Type: unspecified Pain in left foot M79.672 Chronic respiratory failure with hypoxia J96.11 Chronic bronchitis J41.0 Chronic bronchitis type: simple Cigarette nicotine dependence F17.210 Substance use status: uncomplicated History of bladder stone Z87.448 Cystitis cystica N30.80 Left thyroid nodule E04.1 Chronic nausea R11.0 Alkaline phosphatase elevation R74.8 Leukocytosis D72.829 Leukocytosis type: unspecified Borderline personality disorder F60.3 Schizoaffective disorder, bipolar type F25.0 Cannabis abuse F12.10 Opioid abuse F11.10
[2021-04-03 14:44] VITALS: BP 105/67; PULSE 105; RESP 20; TEMP 35.9; O2SAT 94
== END 2021-04-03 15:28 | disposition home or self-care (01) | DRG 881 ==
LOC: ER 13:02 → NP 14:12
PROVIDERS: Admitting Provider Psychiatry & Neurology Psychiatry; Emergency Provider Emergency Medicine; PCP Registered Nurse; Visit Provider Psychiatry & Neurology Psychiatry
DX: F32.9 Major depressive disorder, single episode, unspecified (principal); M87.9 Osteonecrosis, unspecified; R45.851 Suicidal ideations; J96.11 Chronic respiratory failure with hypoxia; F25.0 Schizoaffective disorder, bipolar type; F17.210 Nicotine dependence, cigarettes, uncomplicated; G24.01 Drug induced subacute dyskinesia; K21.9 Gastro-esophageal reflux disease without esophagitis; K22.2 Esophageal obstruction; Z20.822 Contact with and (suspected) exposure to COVID-19; F43.21 Adjustment disorder with depressed mood; J41.0 Simple chronic bronchitis; F11.10 Opioid abuse, uncomplicated; F12.10 Cannabis abuse, uncomplicated; F60.3 Borderline personality disorder
CPT/HCPCS: 36415; 80048; 80306; 80307; 81001; 84484; 85025; 87426; 93005; 94640; 97150; 97165; 99285; J3535; Q0162

== ENCOUNTER → 2021-04-07 11:01 | Outpatient (BNVA) | payer MEDICARE, MEDICAID, SELFPAY | PROVIDERS: PCP Registered Nurse; Visit Provider Registered Nurse | DX: R68.89 Other general symptoms and signs (principal); J32.9 Chronic sinusitis, unspecified | CPT/HCPCS: 87400; 87635 ==

== ENCOUNTER → 2021-04-20 08:20 | Outpatient (BNVA) | payer MEDICARE, MEDICAID, SELFPAY | PROVIDERS: PCP Registered Nurse; Visit Provider Nurse Practitioner | DX: F60.3 Borderline personality disorder (principal); F25.0 Schizoaffective disorder, bipolar type; G24.01 Drug induced subacute dyskinesia | CPT/HCPCS: 99214 ==

== ENCOUNTER 2021-05-02 01:01 | Emergency (ER) | payer MEDICARE, MEDICAID, SELFPAY ==
[2021-05-02] VITALS (21 sets, daily range): BP systolic 146–161; BP diastolic 78–79; PULSE 73; RESP 16; TEMP 36.9; O2SAT 93–96; BMI 33.3
--- NOTE | 2021-05-02 01:04 | ED_ITS ---
HPI - Abdominal Pain General: Chief Complaint: Abdominal Pain Stated Complaint: Abdominal pain Time Seen by Provider: 05/02/21 01:04 History of Present Illness: HPI narrative: 55-year-old female comes in today with complaints of nausea vomiting abdominal pain starting about 3 hours ago. Patient reports it is similar to previous episodes of abdominal pain but seems worse at this time. Patient reports 4 mm episodes of emesis. Patient reports she had eaten chicken noodle soup for supper and at that time she did not feel well. Patient is known to the emergency department and has had previous episodes of abdominal discomfort. Patient appears well. Patient appears in mild pain. Related Data: Date of Last Menstrual Period: 06/19/95 Review of Systems General: Reports: 10 or more systems reviewed and unremarkable except in HPI and below GI: Reports: abdominal pain PFSH ED PFSH: Medical History Bladder stone Borderline personality disorder Chronic anxiety Chronic back pain greater than 3 months duration Chronic gastritis without bleeding COPD (chronic obstructive pulmonary disease) Cystitis cystica Dysphagia Esophageal stricture Foreign body in bladder GERD without esophagitis Neurogenic bladder Psychiatric care Restrictive lung disease Schizoaffective disorder, bipolar type Tardive dyskinesia Urgency incontinence Surgical History H/O bladder repair surgery MESH REPAIR H/O colonoscopy with polypectomy H/O esophagogastroduodenoscopy (09/21/20) H/O: hysterectomy History of appendectomy History of breast biopsy History of foot surgery sx in 2009. Screws placed by Dr. Don. History of ureter stent Hx of cholecystectomy S/P bronchoscopy with biopsy Family History Mother No problems noted. Father No problems noted. Other Asthma Cancer Diabetes Heart disease Social History Quit status (tobacco): considering quitting Second hand smoke exposure: Yes Smoking risk assessment/counseling performed?: No Alcohol intake: never Counseling given: No Counseling given: No Lives independently: Yes Household members: spouse Marital status: Number of children: 3 Current occupational status: disabled History of recent travel: No Current gender identity: Female Female Reproductive History: Date of last menstrual period: 06/19/95 Physical Exam Const: COMMON NORMALS: no acute distress and patient oriented x3 GENERAL APPEARANCE: cooperative HENMT: COMMON NORMALS: normocephalic and Normal external nose present HEAD & SCALP: normal to inspection and normocephalic NOSE: Normal external nose present MOUTH: Normal oral and palatal mucosa present Eye: GENERAL EYE: appearance normal, both eyes and all related structures Neck/C-Spine: COMMON NORMALS: full ROM Lymph: LYMPHATIC: no lymphadenopathy noted Chest: COMMONS NORMALS: normal inspection of the chest Resp: COMMON NORMALS: normal respiratory effort EFFORT & INSPECTION: Yes able to speak in complete sentences Cardio: COMMON NORMALS: regular rate and regular rhythm RATE: regular rate RHYTHM: regular rhythm GI: COMMON NORMALS: Soft to palpation PALPATION: Yes Soft to palpation and Yes Tenderness to palpation present (GI) (General epigastric) : COMMON NORMALS: Yes no CVA tenderness BLADDER/KIDNEY EXAM: Yes no CVA tenderness Back/Pelvis: COMMON NORMALS: no CVA tenderness and thoracic and lumbar spine normal to inspection Extremity: COMMON NORMALS: normal to inspection Neuro: COMMON NORMALS: patient oriented x3 and moves all extremities Psych: COMMON NORMALS: mental status grossly normal and cooperative Skin: COMMON NORMALS: no rashes or lesions noted GENERAL SKIN EXAM: no rashes or lesions noted Course Vital Signs: Vital signs: Vital Signs Temperature 98.4 F 05/02/21 01:05 Pulse Rate 73 05/02/21 01:05 Respiratory Rate 16 05/02/21 01:05 Blood Pressure 146/78 05/02/21 02:35 Pulse Oximetry 93 05/02/21 01:10 MDM - Abdominal Pain MDM Narrative: Medical decision making narrative: Patient comes in tonight with uncontrolled abdominal pain. Patient has a history of chronic abdominal pain but she was unable to control at home. Patient reported the pain made her sick to her stomach and she threw up 4 times. On exam patient's abdomen is soft with normal bowel sounds. Generalized abdominal tenderness is noted but no localized or rebound tenderness is noted. No abdominal guarding is noted. Vital signs are normal. Differential diagnosis includes but not limited to malingering, irritable bowel syndrome, gastritis. No signs of significant illness was noted. Laboratory values were unremarkable. EKG and troponin was unremarkable. Patient had relief of symptoms after treatment with famotidine 40 mg, Zofran 4 mg, and 4 mg of morphine. 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 Lab Data: Labs: Lab Results 05/02/21 05/02/21 05/02/21 02:23 02:23 02:23 WBC 6.8 10^3/uL 10^3/ uL (4.0-10.0) RBC 4.97 10^6/uL 10^6 /uL (4.1-5.3) Hgb 15.5 g/dL H g/dL (11.5-15.3) Hct 47.1 % H % (37.0-47.0) MCV 94.8 fl fl (81-99) MCH 31.2 pg pg (28.0-34.0) MCHC 32.9 g/dL g/dL (30.0-36.0) RDW 15.7 % H % (12.1-15.1) Plt Count 219 10^3/cmm 10^3 /cmm (130-400) MPV 10.8 fL H fL (7.4-10.4) Neut % (Auto) 62.1 % % Lymph % (Auto) 26.0 % % [place] % (Auto) 8.5 % % Eos % (Auto) 1.9 % % Baso % (Auto) 1.2 % % Neut # (Auto) 4.23 10^3/uL 10^3 /uL (1.8-7.7) Lymph # (Auto) 1.8 10^3/uL 10^3/ uL (0.8-4.8) [place] # (Auto) 0.6 10^3/uL 10^3/ uL (0.2-0.9) Eos # (Auto) 0.1 10^3/uL 10^3/ uL (0.0-0.8) Baso # (Auto) 0.1 10^3/uL 10^3/ uL (0.0-0.1) Nucleated RBC % (a uto) 0 % % Nucleated RBCs # 0.0 /100WBC /100W BC Sodium 139 mmol/L mmol/L (136-145) Potassium 4.0 mmol/L mmol/L (3.5-5.1) Chloride 102 mmol/L mmol/L (98-107) Carbon Dioxide 24 mmol/L mmol/L (22-29) Anion Gap 17.0 (5-19) BUN 14 mg/dL mg/dL (6-20) Creatinine 0.9 mg/dL mg/dL (0.5-0.9) GFR Calculation 65.5 mL/min L mL/ min (90-130) Glucose 89 mg/dL mg/dL (65-115) Calculated Osmolal ity 288 mOsm/kg mOsm/ kg (285-295) Calcium 9.6 mg/dL mg/dL (8.5-10.5) Total Bilirubin 0.3 mg/dL mg/dL (0.15-1.2) AST 10 U/L U/L (0-32) ALT 8 U/L U/L (0-33) Alkaline Phosphata se 145 IU/L H IU/L (35-105) Troponin T Gen 5 n g/L 7 ng/L ng/L (0-10) Total Protein 7.4 g/dL g/dL (6.6-8.7) Albumin 4.3 g/dL g/dL (3.5-5.2) Globulin 3.1 g/dL g/dL (1.3-4.6) Lipase 21 U/L U/L (13-60) EKG Data ^: EKG 1: Attestation: I personally reviewed and interpreted this EKG as follows: (0305, EKG shows normal sinus rhythm with a regular rate at 63 bpm, no ectopy or ST elevation is noted. No earlier EKG is present for me for comparison.) Discharge Plan Discharge Patient Disposition: Home Clinical Impression: Abdominal pain Qualifiers: Abdominal location: generalized Qualified Code(s): R10.84 - Generalized abdominal pain Condition: Stable Prescriptions: No Action olanzapine 5 mg tablet 5 mg PO BEDTIME RF: 0 azithromycin 250 mg tablet See Rx Instructions PO .COMPLEX Qty: 6 RF: 0 ondansetron HCl [Zofran] 4 mg tablet 4 mg PO QID PRN (Reason: nausea and vomiting) Qty: 14 RF: 0 ciprofloxacin-dexamethasone [Ciprodex] 0.3-0.1 % drops,suspension 4 drp otic (ear) Q12H 7 Days Qty: 7.5 RF: 0 nystatin [Nystop] 100,000 unit/gram powder 1 applic topical BID Qty: 60 RF: 0 fluticasone propionate 50 mcg/actuation spray,suspension See Rx Instructions .ROUTE .COMPLEX Qty: 48 RF: 0 pantoprazole 40 mg tablet,delayed release (DR/EC) 40 mg PO DAILY Qty: 90 RF: 1 hydroxyzine pamoate 50 mg capsule See Rx Instructions .ROUTE .COMPLEX 30 Days Qty: 150 RF: 1 Breo Ellipta 100-25 mcg/dose blister with device 1 inh inhalation DAILY@0600 RF: 0 acetaminophen [Tylenol Arthritis Pain] 650 mg Tablet Extended Release 1,000 mg PO Q6H PRN (Reason: Pain) RF: 0 albuterol sulfate 90 mcg/actuation HFA aerosol inhaler 2 puff inhalation Q6H PRN (Reason: shortness of breath or wheezing) RF: 0 ipratropium-albuterol 0.5 mg-3 mg(2.5 mg base)/3 mL solution for nebulization 3 ml inhalation Q4H PRN (Reason: Shortness Of Breath Or Wheezing) RF: 0 nitrofurantoin monohyd/m-cryst 100 mg capsule 100 mg PO BID RF: 0 lamotrigine 200 mg tablet 200 mg PO DAILY RF: 0 trazodone 300 mg tablet 300 mg PO BEDTIME RF: 0 Ingrezza 80 mg capsule 80 mg PO DAILY RF: 0 citalopram 20 mg Tablet 40 mg PO DAILY 30 Days Qty: 60 RF: 1 Discharge Orders: Discharge ED (Routine); Ordered 05/02/21 Ordered By: Roney Vann Referrals: Dara Tavera, [facility] [employer] [facility] [Primary Care Provider] - Discharge Diet: Advance as tolerated Discharge Activity: Resume usual activity Patient Instructions: Abdominal Pain (ED), Opioid Safety Activity Restrictions/Additional Instructions: Clear liquid diet until abdominal pain resolves. Continue with routine care as directed. Follow-up with primary care on Monday for further instructions and treatment. Return to the ER for fever greater than 100.4, uncontrolled abdominal pain, blood in vomit or stool. Coding Level of Care Code ED [employer] for [employer]ie Fwfrank Exam Comprehensive
--- NOTE | 2021-05-02 01:05 | ECG_ITS ---
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 Measurements Intervals [place] Rate: 62 P: 55 TX: 172 QRS: 34 QRSD: 92 T: 47 QT: 425 QTc: 434 Interpretive Statements SINUS RHYTHM Compared to ECG 04/03/2021 09:17:03 No significant changes Electronically Signed On 05-02-2021 13:12:42 [employer] by Freida Sampson M.D. [id number]
[2021-05-02 02:27] LABS: Basophils # 0.1 10^3/uL (0.0-0.1); Basophils % 1.2 %; Eosinophils # 0.1 10^3/uL (0.0-0.8); Eosinophils % 1.9 %; Hematocrit 47.1 % (37.0-47.0); Hemoglobin 15.5 g/dL (11.5-15.3); Lymphocytes # 1.8 10^3/uL (0.8-4.8); Mean Corpuscular HGB Conc 32.9 g/dL (30.0-36.0); Mean Corpuscular Hemoglobin 31.2 pg (28.0-34.0); Mean Corpuscular Volume 94.8 fl (81-99); Mean Platelet Volume 10.8 fL (7.4-10.4); Monocytes # 0.6 10^3/uL (0.2-0.9); Monocytes % 8.5 %; Neutrophils # 4.23 10^3/uL (1.8-7.7); Neutrophils % 62.1 %; Nucleated Red Blood Cells % 0 %; Platelet Count 219 10^3/cmm (130-400); Red Blood Count 4.97 10^6/uL (4.1-5.3); Red Cell Distribution Width 15.7 % (12.1-15.1); White Blood Count 6.8 10^3/uL (4.0-10.0)
[2021-05-02] MEDS: famotidine 20 mg/2 mL INJ 40 MG IVP (02:37)
[2021-05-02] MEDS: lidocaine 2% viscous 15 ML, aluminum-mag hydrox-simethicon 30 ML, sucralfate oral liq 1 GM PO (02:38)
[2021-05-02] MEDS: ondansetron 2 mg/ML SDV 2 mL 4 MG IVP (02:38)
[2021-05-02] MEDS: sodium chloride 0.9% 1,000 ML 999 ML IV (02:38)
[2021-05-02 02:55] LABS: Alanine Aminotransferase 8 U/L (0-33); Albumin Level 4.3 g/dL (3.5-5.2); Alkaline Phosphatase 145 IU/L (35-105); Aspartate Amino Transferase 10 U/L (0-32); Blood Urea Nitrogen 14 mg/dL (6-20); Calcium 9.6 mg/dL (8.5-10.5); Carbon Dioxide 24 mmol/L (22-29); Chloride 102 mmol/L (98-107); Globulin 3.1 g/dL (1.3-4.6); Glomerular Filtration Rate 65.5 mL/min (90-130); Glucose 89 mg/dL (65-115); Lipase 21 U/L (13-60); Osmolality Calculated 288 mOsm/kg (285-295); Sodium 139 mmol/L (136-145); Total Bilirubin 0.3 mg/dL (0.15-1.2); Total Protein 7.4 g/dL (6.6-8.7)
[2021-05-02] MEDS: morphine 4 mg/mL SDV 1 mL IVP (03:15)
[2021-05-02 03:18] LABS: Troponin T (5th) Once 7 ng/L (0-10)
== END 2021-05-02 03:33 | disposition home or self-care (01) ==
PROVIDERS: Emergency Provider Nurse Practitioner Family; PCP Registered Nurse
DX: R10.84 Generalized abdominal pain (principal); J44.9 Chronic obstructive pulmonary disease, unspecified; Z77.22 Contact with and (suspected) exposure to environmental tobacco smoke (acute) (chronic)
CPT/HCPCS: 80053; 83690; 84484; 85025; 93005; 96361; 96374; 96375; 99284; J2270; J2405; J3490; J7030

== ENCOUNTER 2021-05-05 13:41 | Emergency (ER) | payer MEDICARE, MEDICAID, SELFPAY ==
[2021-05-05 13:52] VITALS: BP 109/72; PULSE 74; RESP 16; TEMP 37.1; O2SAT 96; BMI 33.3
[2021-05-05 14:21] LABS: Add Urine Microscopic? NO; Charge for UA Resulting for Rev
[2021-05-05 14:23] LABS: Bilirubin Urine Neg (Negative); Blood Urine Neg (Negative); Glucose Urine UA Norm (Normal); Ketones Urine Negative (Negative); Leukocyte Esterase Urine Negative (Negative); Nitrate Urine Negative (Negative); Protein Urine Neg (Negative); Urine Appearance Clear (CLEAR); Urine Color Straw (Yellow); Urobilinogen Urine Norm (Negative); pH Urine 5 (5-7)
--- NOTE | 2021-05-05 15:50 | W.ED.ABDPA2 ---
HPI - Abdominal Pain General: Chief Complaint: Abdominal Pain Stated Complaint: ABD PAIN Time Seen by Provider: 05/05/21 13:42 Source: patient and EMS Mode of arrival: EMS Limitations: no limitations History of Present Illness: HPI narrative: 55-year-old female who has a history of chronic abdominal pain is well-known to the ER states been having abdominal pain over the last week she was seen here 3 days ago with normal labs. States pain is epigastric in nature she denies any worst improving factors. Denies any fevers patient here is resting comfortably denies any chest pain. Associated Symptoms: Reports nausea; Denies chills, dysuria and fever(s) Related Data: Date of Last Menstrual Period: 06/19/95 Review of Systems Const: Denies: fever(s), chills, body aches or change in appetite Eyes: Denies: blurry vision or eye discomfort ENMT: Denies: throat pain or dental pain Card: Denies: chest pain Resp: Denies: dyspnea GI: Reports: abdominal pain and nausea : Denies: dysuria Musc: Denies: neck pain or back pain Skin/Breast: Denies: rash Neuro: Denies: headache(s) Psych: Denies: depression Wilbur/Lymph: Denies: easy bruising All/Imm: Denies: urticaria PFSH ED PFSH: Medical History Bladder stone Borderline personality disorder Chronic anxiety Chronic back pain greater than 3 months duration Chronic gastritis without bleeding COPD (chronic obstructive pulmonary disease) Cystitis cystica Dysphagia Esophageal stricture Foreign body in bladder GERD without esophagitis Neurogenic bladder Psychiatric care Restrictive lung disease Schizoaffective disorder, bipolar type Tardive dyskinesia Urgency incontinence Surgical History H/O bladder repair surgery MESH REPAIR H/O colonoscopy with polypectomy H/O esophagogastroduodenoscopy (09/21/20) H/O: hysterectomy History of appendectomy History of breast biopsy History of foot surgery sx in 2009. Screws placed by Dr. Don. History of ureter stent Hx of cholecystectomy S/P bronchoscopy with biopsy Family History Mother No problems noted. Father No problems noted. Other Asthma Cancer Diabetes Heart disease Social History Quit status (tobacco): considering quitting Second hand smoke exposure: Yes Smoking risk assessment/counseling performed?: No Alcohol intake: never Counseling given: No Counseling given: No Lives independently: Yes Household members: spouse Marital status: Number of children: 3 Current occupational status: disabled History of recent travel: No Current gender identity: Female Female Reproductive History: Date of last menstrual period: 06/19/95 Physical Exam Const: COMMON NORMALS: no acute distress, patient oriented x3 and healthy appearing HENMT: COMMON NORMALS: normocephalic and atraumatic HEAD & SCALP: normocephalic and atraumatic Eye: COMMON NORMALS: Equal, round and reactive pupils present and EOMs intact bilaterally PUPIL: Yes Equal, round and reactive pupils present Neck/C-Spine: COMMON NORMALS: full ROM and supple Chest: COMMONS NORMALS: normal inspection of the chest and normal palpation of entire chest wall Resp: COMMON NORMALS: normal respiratory effort, No retractions, No use of accessory muscles and clear to auscultation bilaterally AUSCULTATION: clear to auscultation bilaterally Cardio: COMMON NORMALS: regular rate, regular rhythm and No murmurs present (Cardio) RATE: regular rate RHYTHM: regular rhythm GI: COMMON NORMALS: Normal to inspection, nondistended, normoactive bowel sounds present, Soft to palpation, non-tender and no masses PALPATION: Yes Soft to palpation Extremity: COMMON NORMALS: normal to inspection and full ROM Neuro: COMMON NORMALS: patient oriented x3, moves all extremities and no focal motor deficits Psych: COMMON NORMALS: mental status grossly normal, Normal thought process present and cooperative THOUGHT PROCESS: Normal thought process present Skin: COMMON NORMALS: no rashes or lesions noted and no wounds GENERAL SKIN EXAM: no rashes or lesions noted Course Vital Signs: Vital signs: Vital Signs Temperature 98.7 F 05/05/21 13:52 Pulse Rate 74 05/05/21 13:52 Respiratory Rate 16 05/05/21 13:52 Blood Pressure 109/72 05/05/21 13:52 Pulse Oximetry 96 05/05/21 13:52 MDM - Abdominal Pain MDM Narrative: Medical decision making narrative: Patient presents here with abdominal pain is chronic in nature exam here is benign with no tenderness lab work is all normal she has no signs of acute surgical abdomen patient feels improved at discharge she is stable for discharge is to follow-up with PCP and return if worsening. Lab Data: Labs: Lab Results 05/05/21 05/05/21 05/05/21 14:10 16:15 16:15 WBC 13.1 10^3/uL H 10 ^3/uL (4.0-10.0) RBC 4.25 10^6/uL 10^6 /uL (4.1-5.3) Hgb 13.6 g/dL g/dL (11.5-15.3) Hct 38.2 % % (37.0-47.0) MCV 89.9 fl fl (81-99) MCH 32.0 pg pg (28.0-34.0) MCHC 35.6 g/dL g/dL (30.0-36.0) RDW 15.4 % H % (12.1-15.1) Plt Count 169 10^3/cmm 10^3 /cmm (130-400) MPV 10.9 fL H fL (7.4-10.4) Neut % (Auto) 72.4 % % Lymph % (Auto) 17.6 % % [place] % (Auto) 7.0 % % Eos % (Auto) 1.4 % % Baso % (Auto) 1.2 % % Neut # (Auto) 9.45 10^3/uL H 10 ^3/uL (1.8-7.7) Lymph # (Auto) 2.3 10^3/uL 10^3/ uL (0.8-4.8) [place] # (Auto) 0.9 10^3/uL 10^3/ uL (0.2-0.9) Eos # (Auto) 0.2 10^3/uL 10^3/ uL (0.0-0.8) Baso # (Auto) 0.2 10^3/uL H 10^ 3/uL (0.0-0.1) Nucleated RBC % (a uto) 0 % % Nucleated RBCs # 0.0 /100WBC /100W BC Sodium 139 mmol/L mmol/L (136-145) Potassium 3.7 mmol/L mmol/L (3.5-5.1) Chloride 106 mmol/L mmol/L (98-107) Carbon Dioxide 19 mmol/L L mmol/ L (22-29) Anion Gap 17.7 (5-19) BUN 11 mg/dL mg/dL (6-20) Creatinine 1.0 mg/dL H mg/dL (0.5-0.9) GFR Calculation 58.0 mL/min L mL/ min (90-130) Glucose 85 mg/dL mg/dL (65-115) Calculated Osmolal ity 287 mOsm/kg mOsm/ kg (285-295) Calcium 8.2 mg/dL L mg/dL (8.5-10.5) Total Bilirubin 0.2 mg/dL mg/dL (0.15-1.2) AST 7 U/L U/L (0-32) ALT < 5 U/L U/L (0-33) Alkaline Phosphata se 110 IU/L H IU/L (35-105) Total Protein 5.9 g/dL L g/dL (6.6-8.7) Albumin 3.7 g/dL g/dL (3.5-5.2) Globulin 2.2 g/dL g/dL (1.3-4.6) Lipase 21 U/L U/L (13-60) Urine Color Straw (Yellow) Urine Appearance Clear (CLEAR) Urine pH 5 (5-7) Ur Specific Gravit y 1.010 (1.005-1.030) Urine Protein Neg (Negative) Urine Glucose (UA) Norm (Normal) Urine Ketones Negative (Negative) Urine Blood Neg (Negative) Urine Nitrate Negative (Negative) Urine Bilirubin Neg (Negative) Urine Urobilinogen Norm mg/dL mg/dL (Negative) Ur Leukocyte Stephanie ase Negative (Negative) Discharge Plan Discharge Patient Disposition: Home Clinical Impression: Abdominal pain Qualifiers: Abdominal location: generalized Qualified Code(s): R10.84 - Generalized abdominal pain Condition: Stable Prescriptions: No Action olanzapine 5 mg tablet 5 mg PO BEDTIME RF: 0 azithromycin 250 mg tablet See Rx Instructions PO .COMPLEX Qty: 6 RF: 0 ondansetron HCl [Zofran] 4 mg tablet 4 mg PO QID PRN (Reason: nausea and vomiting) Qty: 14 RF: 0 ciprofloxacin-dexamethasone [Ciprodex] 0.3-0.1 % drops,suspension 4 drp otic (ear) Q12H 7 Days Qty: 7.5 RF: 0 nystatin [Nystop] 100,000 unit/gram powder 1 applic topical BID Qty: 60 RF: 0 fluticasone propionate 50 mcg/actuation spray,suspension See Rx Instructions .ROUTE .COMPLEX Qty: 48 RF: 0 pantoprazole 40 mg tablet,delayed release (DR/EC) 40 mg PO DAILY Qty: 90 RF: 1 hydroxyzine pamoate 50 mg capsule See Rx Instructions .ROUTE .COMPLEX 30 Days Qty: 150 RF: 1 lamotrigine 200 mg tablet 200 mg PO DAILY Qty: 30 RF: 1 trazodone 300 mg tablet 300 mg PO BEDTIME Qty: 30 RF: 1 Breo Ellipta 100-25 mcg/dose blister with device 1 inh inhalation DAILY@0600 RF: 0 acetaminophen [Tylenol Arthritis Pain] 650 mg Tablet Extended Release 1,000 mg PO Q6H PRN (Reason: Pain) RF: 0 albuterol sulfate 90 mcg/actuation HFA aerosol inhaler 2 puff inhalation Q6H PRN (Reason: shortness of breath or wheezing) RF: 0 ipratropium-albuterol 0.5 mg-3 mg(2.5 mg base)/3 mL solution for nebulization 3 ml inhalation Q4H PRN (Reason: Shortness Of Breath Or Wheezing) RF: 0 nitrofurantoin monohyd/m-cryst 100 mg capsule 100 mg PO BID RF: 0 Ingrezza 80 mg capsule 80 mg PO DAILY RF: 0 citalopram 20 mg Tablet 40 mg PO DAILY 30 Days Qty: 60 RF: 1 Discharge Orders: Discharge ED (Routine); Ordered 05/05/21 Ordered By: Damien Urbina Referrals: Daar Tavera FNP [Primary Care Provider] - Discharge Diet: Advance as tolerated Discharge Activity: Resume usual activity Patient Instructions: Abdominal Pain (ED) Coding Level of Care Code ED [employer] Services Supervisor for Shellie Fwd Exam Comprehensive
[2021-05-05] MEDS: morphine 4 mg/mL SDV 1 mL IM (16:21)
[2021-05-05] MEDS: promethazine 25 mg/mL SDV 1 mL IM (16:21)
[2021-05-05 16:36] LABS: Basophils # 0.2 10^3/uL (0.0-0.1); Basophils % 1.2 %; Eosinophils # 0.2 10^3/uL (0.0-0.8); Eosinophils % 1.4 %; Hematocrit 38.2 % (37.0-47.0); Hemoglobin 13.6 g/dL (11.5-15.3); Lymphocytes # 2.3 10^3/uL (0.8-4.8); Lymphocytes % 17.6 %; Mean Corpuscular HGB Conc 35.6 g/dL (30.0-36.0); Mean Corpuscular Volume 89.9 fl (81-99); Mean Platelet Volume 10.9 fL (7.4-10.4); Monocytes # 0.9 10^3/uL (0.2-0.9); Neutrophils # 9.45 10^3/uL (1.8-7.7); Neutrophils % 72.4 %; Nucleated Red Blood Cells % 0 %; Platelet Count 169 10^3/cmm (130-400); Red Blood Count 4.25 10^6/uL (4.1-5.3); Red Cell Distribution Width 15.4 % (12.1-15.1); White Blood Count 13.1 10^3/uL (4.0-10.0)
[2021-05-05 17:26] LABS: Alanine Aminotransferase < 5 U/L (0-33); Albumin Level 3.7 g/dL (3.5-5.2); Alkaline Phosphatase 110 IU/L (35-105); Anion Gap 17.7 (5-19); Aspartate Amino Transferase 7 U/L (0-32); Blood Urea Nitrogen 11 mg/dL (6-20); Calcium 8.2 mg/dL (8.5-10.5); Carbon Dioxide 19 mmol/L (22-29); Chloride 106 mmol/L (98-107); Globulin 2.2 g/dL (1.3-4.6); Glucose 85 mg/dL (65-115); Lipase 21 U/L (13-60); Osmolality Calculated 287 mOsm/kg (285-295); Potassium 3.7 mmol/L (3.5-5.1); Sodium 139 mmol/L (136-145); Total Bilirubin 0.2 mg/dL (0.15-1.2); Total Protein 5.9 g/dL (6.6-8.7)
[2021-05-05] MEDS: naproxen 500 mg Tablet PO (18:36)
[2021-05-05 19:03] VITALS: BP 110/63; PULSE 60; RESP 18; O2SAT 95
== END 2021-05-05 19:05 | disposition home or self-care (01) ==
PROVIDERS: Emergency Provider Emergency Medicine; PCP Registered Nurse
DX: R10.84 Generalized abdominal pain (principal); J44.9 Chronic obstructive pulmonary disease, unspecified; Z77.22 Contact with and (suspected) exposure to environmental tobacco smoke (acute) (chronic)
CPT/HCPCS: 80053; 81003; 83690; 85025; 96372; 99283; J2270; J2550

== ENCOUNTER 2021-05-12 14:02 | Emergency (ER) | payer MEDICARE, MEDICAID, SELFPAY ==
[2021-05-12 14:17] VITALS: BP 105/71; PULSE 83; RESP 16; TEMP 36.9; O2SAT 98
--- NOTE | 2021-05-12 15:33 | CTR_ITS ---
PROCEDURE INFORMATION: Exam: CT Abdomen And Pelvis With Contrast Exam date and time: 05/12/2021 3:33 PM Age: 55 years old Clinical indication: Other: Suzanne umbilical; Prior surgery; Surgery type: Gb, hyst, egd, bladder, appy; Patient HX: Periumbilical pain x 3 months. Worse yesterday and today with n/v; Additional info: Eval pathologies, periumbilical pain TECHNIQUE: Imaging protocol: Computed tomography of the abdomen and pelvis with contrast. Radiation optimization: All CT scans at this facility use at least one of these dose optimization techniques: automated exposure control; mA and/or kV adjustment per patient size (includes targeted exams where dose is matched to clinical indication); or iterative reconstruction. Contrast material: OMNI 300; Contrast volume: 95 ml; Contrast route: INTRAVENOUS (IV); COMPARISON: CT chest abd pel wo con 03/22/2021 6:17 PM RADIATION DOSE METRICS: Total DLP (mGy-cm): 1812.59 FINDINGS: Liver: There is no focal abnormality within the liver. Gallbladder and bile ducts: There has been a cholecystectomy. Pancreas: The pancreas is normal. Spleen: The spleen is normal. Small accessory splenule is seen adjacent to the medial tip of the spleen. Adrenal glands: The adrenal glands are normal. Kidneys and ureters: There is a right renal collecting system calcification. The left kidney is normal. There is no evidence of hydronephrosis. There is no stone along the course of either ureter. Stomach and bowel: There is no evidence of colitis/diverticulitis. Hyperdensity within the gastric lumen presumably represents ingested material or medication. Appendix: Not identified Intraperitoneal space: There is no evidence of free intraperitoneal fluid. Vasculature: The aorta demonstrates mild atherosclerotic calcification. There is no evidence of an abdominal aortic aneurysm. Lymph nodes: There is no evidence of lymphadenopathy. Urinary bladder: Unremarkable as visualized. Reproductive: There has been a hysterectomy. Bones/joints: Unremarkable. No acute fracture. Soft tissues: Unremarkable. CT/CT abdomen pelvis w con* [id number] IMPRESSION: No acute findings. No significant change compared with 03/22/2021. Radiation Dose CTDIVOL = (mGy): DLP = 1812.59 (mGy-cm)
[2021-05-12] MEDS: sodium chloride 0.9% 1,000 ML 999 ML IV (16:24)
[2021-05-12] MEDS: famotidine 20 mg/2 mL INJ IVP (16:26)
[2021-05-12] MEDS: ondansetron 2 mg/ML SDV 2 mL 4 MG IVP (16:29)
[2021-05-12] MEDS: iohexol 300 mg/mL 100 mL Btl IV (16:36)
[2021-05-12 16:41] LABS: Basophils # 0.1 10^3/uL (0.0-0.1); Eosinophils # 0.1 10^3/uL (0.0-0.8); Hematocrit 44.2 % (37.0-47.0); Hemoglobin 14.6 g/dL (11.5-15.3); Lymphocytes # 2.4 10^3/uL (0.8-4.8); Lymphocytes % 27.5 %; Mean Corpuscular Hemoglobin 31.9 pg (28.0-34.0); Mean Corpuscular Volume 96.5 fl (81-99); Mean Platelet Volume 10.6 fL (7.4-10.4); Monocytes # 0.7 10^3/uL (0.2-0.9); Monocytes % 7.4 %; Neutrophils # 5.48 10^3/uL (1.8-7.7); Neutrophils % 62.8 %; Nucleated Red Blood Cells % 0 %; Platelet Count 184 10^3/cmm (130-400); Red Blood Count 4.58 10^6/uL (4.1-5.3); Red Cell Distribution Width 15.5 % (12.1-15.1); White Blood Count 8.7 10^3/uL (4.0-10.0)
--- NOTE | 2021-05-12 17:09 | ED_ITS ---
HPI - General Adult General: Chief complaint: Abdominal Pain Stated complaint: N/V/ ABDOMINAL PAIN Time Seen by Provider: 05/12/21 14:39 History of Present Illness: HPI narrative: Patient is a 55-year-old female with a history of cholecystectomy, appendectomy who presents the emergency room with 2 days of constant colicky periumbilical abdominal pain. Patient says that she has had 3 episodes of vomiting. Patient has history of irritable bowel disease for which she follows up with GI provider in [place]. In addition, patient reports loose stool over this period of time. Patient denies any decreased p.o. intake, pain worse with p.o. intake, chest pain, shortness breath, palpitation, fever or chills. Patient states that the pain is constant and unrelieved. Patient denies any hx of kidney stones. Has been able to pass gas without difficulty. Denies any urinary symptoms or new vaginal discharge/bleeding. Patient thinks that her symptoms are not consistent with prior flareup of irritable bowel disease. Onset: 2 days ago Duration:2 days Location:home Severity:moderate Review of Systems Narrative: Constitutional: No fever, +chills. HEENT: No vision changes CV: No chest pain, no palpitations PULM: no cough, no dyspnea. GI: +abdominal pain, +N/+V/-D. +loose stool : No dysuria MSKEL: No muscle pain SKIN: No new rashes, no lesions. NEURO: No headache, no focal weakness. HEME: No visible bruises PSYCH: Normal mood PFSH ED PFSH: Medical History Bladder stone Borderline personality disorder Chronic anxiety Chronic back pain greater than 3 months duration Chronic gastritis without bleeding COPD (chronic obstructive pulmonary disease) Cystitis cystica Dysphagia Esophageal stricture Foreign body in bladder GERD without esophagitis Neurogenic bladder Psychiatric care Restrictive lung disease Schizoaffective disorder, bipolar type Tardive dyskinesia Urgency incontinence Surgical History H/O bladder repair surgery MESH REPAIR H/O colonoscopy with polypectomy H/O esophagogastroduodenoscopy (09/21/20) H/O: hysterectomy History of appendectomy History of breast biopsy History of foot surgery sx in 2009. Screws placed by Dr. Don. History of ureter stent Hx of cholecystectomy S/P bronchoscopy with biopsy Family History Mother No problems noted. Father No problems noted. Other Asthma Cancer Diabetes Heart disease Social History Quit status (tobacco): considering quitting Second hand smoke exposure: Yes Smoking risk assessment/counseling performed?: No Alcohol intake: never Counseling given: No Counseling given: No Lives independently: Yes Household members: spouse Marital status: Number of children: 3 Current occupational status: disabled History of recent travel: No Current gender identity: Female Female Reproductive History: Date of last menstrual period: 06/19/95 Physical Exam Narrative: EXAM NARRATIVE: Head: Atraumatic Eyes: PERRL, conjunctiva without injection ENT: Mucous membrane moist NECK: Supple, ROM intact LUNGS: LCTAB, no crackles/rhonchi CV: RRR ABDOMEN: Soft, +mild periumbilical tenderness to palpation, no guarding rebound, guarding, rigidity. No CVA tenderness to percussion. Neg Gudino/Neg McBurney's point tenderness, no suprabupic tenderness to palpation. EXTREMITY: Normal ROM SKIN: No rash or erythema NEURO: Awake and alert, no focal motor deficits PSYCH: Normal mood and affect Course Vital Signs: Vital signs: Vital Signs Temperature 97.5 F L 05/12/21 18:10 Pulse Rate 68 05/12/21 18:52 Respiratory Rate 14 05/12/21 18:52 Blood Pressure 133/85 05/12/21 18:10 Pulse Oximetry 95 05/12/21 18:52 MDM - General Adult MDM Narrative: Medical decision making narrative: 55-year-old female with a history of cholecystectomy, appendectomy, prior IBS followed by GI in [facility] presenting to the emergency room with periumbilical pain x2 days with nausea and vomiting. ON exam, patient has mild tenderness palpation. Afebrile. No guarding or rebound tenderness. Patient has a a white count of 8.3, rest of labs within normal limit. CT of the pelvis did not show any signs of focal intra-abdominal infection or surgical abdomen. Patient tolerated p.o. in the emergency room after pain control. Patient received GI cocktail, is able to tolerate p.o. Patient has no worsening pain symptoms after reassessment. Doubt ACS/UA as patient has no chest pain, risk factors, has symptoms of diarrhea. Symptoms are not consistent with angina. Rx maalox and pepcid PRN dyspepsia and zofran PRN nausea/vomiting Disposition: Discharge. Patient counseled regarding diagnostic impression, treatment plan. Patient given ED strict return precautions to return for continuation, worsening, or development of new symptoms. Instructed to f/u w/ PCP regarding symptoms today. Patient verbalized understanding. Lab Data: Labs: Lab Results 05/12/21 05/12/21 16:14 16:14 WBC 8.7 10^3/uL 10^3/ uL (4.0-10.0) RBC 4.58 10^6/uL 10^6 /uL (4.1-5.3) Hgb 14.6 g/dL g/dL (11.5-15.3) Hct 44.2 % % (37.0-47.0) MCV 96.5 fl fl (81-99) MCH 31.9 pg pg (28.0-34.0) MCHC 33.0 g/dL g/dL (30.0-36.0) RDW 15.5 % H % (12.1-15.1) Plt Count 184 10^3/cmm 10^3 /cmm (130-400) MPV 10.6 fL H fL (7.4-10.4) Neut % (Auto) 62.8 % % Lymph % (Auto) 27.5 % % [place] % (Auto) 7.4 % % Eos % (Auto) 1.0 % % Baso % (Auto) 1.0 % % Neut # (Auto) 5.48 10^3/uL 10^3 /uL (1.8-7.7) Lymph # (Auto) 2.4 10^3/uL 10^3/ uL (0.8-4.8) [place] # (Auto) 0.7 10^3/uL 10^3/ uL (0.2-0.9) Eos # (Auto) 0.1 10^3/uL 10^3/ uL (0.0-0.8) Baso # (Auto) 0.1 10^3/uL 10^3/ uL (0.0-0.1) Nucleated RBC % (a uto) 0 % % Nucleated RBCs # 0.0 /100WBC /100W BC Sodium 136 mmol/L mmol/L (136-145) Potassium 3.8 mmol/L mmol/L (3.5-5.1) Chloride 101 mmol/L mmol/L (98-107) Carbon Dioxide 23 mmol/L mmol/L (22-29) Anion Gap 15.8 (5-19) BUN 14 mg/dL mg/dL (6-20) Creatinine 0.9 mg/dL mg/dL (0.5-0.9) GFR Calculation 65.5 mL/min L mL/ min (90-130) Glucose 90 mg/dL mg/dL (65-115) Calculated Osmolal ity 282 mOsm/kg L mOs m/kg (285-295) Calcium 8.8 mg/dL mg/dL (8.5-10.5) Total Bilirubin 0.2 mg/dL mg/dL (0.15-1.2) AST 9 U/L U/L (0-32) ALT 7 U/L U/L (0-33) Alkaline Phosphata se 122 IU/L H IU/L (35-105) Total Protein 6.4 g/dL L g/dL (6.6-8.7) Albumin 4.1 g/dL g/dL (3.5-5.2) Globulin 2.3 g/dL g/dL (1.3-4.6) Lipase 22 U/L U/L (13-60) Imaging Data^: Other Imaging: Radiologist's impression: [address] [id number] Scan ReportSigned Patient: Latesha Wilhelm AUnjosé #: [id number]: [id number]#:[id number]/Sex: 55 / FADM Date: 05/12/21Loc: ERRoom/Bed:Attending Dr: Ordering Provider/Ordering MD: Garett Chávez MD Date of Service: 05/12/21 Procedure(s): CT abdomen pelvis w con* [id number] Accession Number(s): [id number] Report Number: [id number] PROCEDURE INFORMATION: Exam: CT Abdomen And Pelvis With Contrast Exam date and time: 05/12/2021 3:33 PM Age: 55 years old Clinical indication: Other: Suzanne umbilical; Prior surgery; Surgery type: Gb, hyst, egd, bladder, appy; Patient HX: Periumbilical pain x 3 months. Worse yesterday and today with n/v; Additional info: Eval pathologies, periumbilical pain TECHNIQUE: Imaging protocol: Computed tomography of the abdomen and pelvis with contrast. Radiation optimization: All CT scans at this facility use at least one of these dose optimization techniques: automated exposure control; mA and/or kV adjustment per patient size (includes targeted exams where dose is matched to clinical indication); or iterative reconstruction. Contrast material: OMNI 300; Contrast volume: 95 ml; Contrast route: INTRAVENOUS (IV); COMPARISON: CT chest abd pel wo con 03/22/2021 6:17 PM RADIATION DOSE METRICS: Total DLP (mGy-cm): 1812.59 FINDINGS: Liver: There is no focal abnormality within the liver. Gallbladder and bile ducts: There has been a cholecystectomy. Pancreas: The pancreas is normal. Spleen: The spleen is normal. Small accessory splenule is seen adjacent to the medial tip of the spleen. Adrenal glands: The adrenal glands are normal. Kidneys and ureters: There is a right renal collecting system calcification. The left kidney is normal. There is no evidence of hydronephrosis. There is no stone along the course of either ureter. Stomach and bowel: There is no evidence of colitis/diverticulitis. Hyperdensity within the gastric lumen presumably represents ingested material or medication. Appendix: Not identified Intraperitoneal space: There is no evidence of free intraperitoneal fluid. Vasculature: The aorta demonstrates mild atherosclerotic calcification. There is no evidence of an abdominal aortic aneurysm. Lymph nodes: There is no evidence of lymphadenopathy. Urinary bladder: Unremarkable as visualized. Reproductive: There has been a hysterectomy. Bones/joints: Unremarkable. No acute fracture. Soft tissues: Unremarkable. CT/CT abdomen pelvis w con* [id number] IMPRESSION: No acute findings. No significant change compared with 03/22/2021. Radiation Dose CTDIVOL = (mGy): DLP = 1812.59 (mGy-cm) Dictated By:Wilberto Branch By:Wilberto Branch Date/Time:05/12/21 [id number]/ [id number] Discharge Plan Discharge Patient Disposition: Home Clinical Impression: Abdominal pain, Nausea and vomiting Condition: Stable Prescriptions: New Pepcid 20 mg tablet 20 mg PO BID PRN (Reason: abdominal pain) 10 Days Qty: 20 RF: 0 Maalox Advanced 1,000-60 mg tablet,chewable 1 tab PO TID PRN (Reason: abdominal pain) 7 Days Qty: 21 RF: 0 Zofran 4 mg tablet 4 mg PO TID PRN (Reason: nausea and vomiting) 4 Days Qty: 12 RF: 0 No Action olanzapine 5 mg tablet 5 mg PO BEDTIME RF: 0 azithromycin 250 mg tablet See Rx Instructions PO .COMPLEX Qty: 6 RF: 0 ondansetron HCl [Zofran] 4 mg tablet 4 mg PO QID PRN (Reason: nausea and vomiting) Qty: 14 RF: 0 ciprofloxacin-dexamethasone [Ciprodex] 0.3-0.1 % drops,suspension 4 drp otic (ear) Q12H 7 Days Qty: 7.5 RF: 0 nystatin [Nystop] 100,000 unit/gram powder 1 applic topical BID Qty: 60 RF: 0 fluticasone propionate 50 mcg/actuation spray,suspension See Rx Instructions .ROUTE .COMPLEX Qty: 48 RF: 0 pantoprazole 40 mg tablet,delayed release (DR/EC) 40 mg PO DAILY Qty: 90 RF: 1 hydroxyzine pamoate 50 mg capsule See Rx Instructions .ROUTE .COMPLEX 30 Days Qty: 150 RF: 1 lamotrigine 200 mg tablet 200 mg PO DAILY Qty: 30 RF: 1 trazodone 300 mg tablet 300 mg PO BEDTIME Qty: 30 RF: 1 Breo Ellipta 100-25 mcg/dose blister with device 1 inh inhalation DAILY@0600 RF: 0 acetaminophen [Tylenol Arthritis Pain] 650 mg Tablet Extended Release 1,000 mg PO Q6H PRN (Reason: Pain) RF: 0 albuterol sulfate 90 mcg/actuation HFA aerosol inhaler 2 puff inhalation Q6H PRN (Reason: shortness of breath or wheezing) RF: 0 ipratropium-albuterol 0.5 mg-3 mg(2.5 mg base)/3 mL solution for nebulization 3 ml inhalation Q4H PRN (Reason: Shortness Of Breath Or Wheezing) RF: 0 nitrofurantoin monohyd/m-cryst 100 mg capsule 100 mg PO BID RF: 0 Ingrezza 80 mg capsule 80 mg PO DAILY RF: 0 citalopram 20 mg Tablet 40 mg PO DAILY 30 Days Qty: 60 RF: 1 Discharge Orders: Discharge ED (Routine); Ordered 05/12/21 Ordered By: Garett Chávez Referrals: Dara Tavera, CLERK GENERAL OFFICE [Primary Care Provider] - Discharge Activity: Resume usual activity Patient Instructions: Abdominal Pain (ED) Activity Restrictions/Additional Instructions: Please come back if you have worsening pain, nausea/vomiting, fever/chills, inability tolerate p.o. or any new extreme complaints. Coding Level of Care Code ED Skiver Uppers Or Linings for Shellie Guallpa
[2021-05-12 17:11] LABS: Alanine Aminotransferase 7 U/L (0-33); Albumin Level 4.1 g/dL (3.5-5.2); Alkaline Phosphatase 122 IU/L (35-105); Anion Gap 15.8 (5-19); Aspartate Amino Transferase 9 U/L (0-32); Blood Urea Nitrogen 14 mg/dL (6-20); Calcium 8.8 mg/dL (8.5-10.5); Carbon Dioxide 23 mmol/L (22-29); Chloride 101 mmol/L (98-107); Globulin 2.3 g/dL (1.3-4.6); Glomerular Filtration Rate 65.5 mL/min (90-130); Glucose 90 mg/dL (65-115); Lipase 22 U/L (13-60); Osmolality Calculated 282 mOsm/kg (285-295); Potassium 3.8 mmol/L (3.5-5.1); Sodium 136 mmol/L (136-145); Total Bilirubin 0.2 mg/dL (0.15-1.2); Total Protein 6.4 g/dL (6.6-8.7)
[2021-05-12 18:10] VITALS: BP 133/85; PULSE 84; RESP 18; TEMP 36.4; O2SAT 97
[2021-05-12 18:17] VITALS: RESP 17; O2SAT 97
[2021-05-12] MEDS: morphine 4 mg/mL SDV 1 mL 2 MG IVP (18:17)
[2021-05-12] MEDS: lidocaine 2% viscous 15 ML, aluminum-mag hydrox-simethicon 30 ML, sucralfate oral liq 1 GM PO (18:37)
[2021-05-12 18:52] VITALS: PULSE 68; RESP 14; O2SAT 95
[2021-05-12 19:05] LABS: Add Urine Microscopic? NO; Charge for UA Resulting for Rev
[2021-05-12 19:13] LABS: Bilirubin Urine Neg (Negative); Blood Urine Neg (Negative); Glucose Urine UA Norm (Normal); Ketones Urine Negative (Negative); Leukocyte Esterase Urine Negative (Negative); Nitrate Urine Negative (Negative); Protein Urine Neg (Negative); Specific Gravity, Urine 1.005 (1.005-1.030); Urine Appearance Clear (CLEAR); Urine Color Yellow (Yellow); Urobilinogen Urine Norm (Negative); pH Urine 5 (5-7)
== END 2021-05-12 18:49 | disposition home or self-care (01) ==
PROVIDERS: Physician Assistant; Emergency Provider Emergency Medicine; PCP Registered Nurse
DX: R10.33 Periumbilical pain (principal); R11.2 Nausea with vomiting, unspecified; F17.200 Nicotine dependence, unspecified, uncomplicated; Z79.51 Long term (current) use of inhaled steroids; K21.9 Gastro-esophageal reflux disease without esophagitis; J44.9 Chronic obstructive pulmonary disease, unspecified; F41.9 Anxiety disorder, unspecified; K58.0 Irritable bowel syndrome with diarrhea
CPT/HCPCS: 74177; 80053; 81003; 83690; 85025; 96361; 96374; 96375; 99284; J2270; J2405; J3490; J7030; Q9967

== ENCOUNTER 2021-05-16 08:51 | Emergency (ER) | payer MEDICARE, MEDICAID, SELFPAY ==
[2021-05-16 08:56] VITALS: BP 160/85; PULSE 91; RESP 14; TEMP 36.8; O2SAT 98; BMI 33.3
--- NOTE | 2021-05-16 08:56 | CTR_ITS ---
PROCEDURE INFORMATION: Exam: CT Abdomen And Pelvis With Contrast Exam date and time: 05/16/2021 8:56 AM Age: 55 years old Clinical indication: Generalized; Patient HX: Abdominal pain x1 day with n/v/d TECHNIQUE: Imaging protocol: Computed tomography of the abdomen and pelvis with contrast. Radiation optimization: All CT scans at this facility use at least one of these dose optimization techniques: automated exposure control; mA and/or kV adjustment per patient size (includes targeted exams where dose is matched to clinical indication); or iterative reconstruction. Contrast material: OMNI 300; Contrast volume: 95 ml; Contrast route: INTRAVENOUS (IV); COMPARISON: CT abdomen pelvis w con* [id number] 05/12/2021 4:33 PM RADIATION DOSE METRICS: Total DLP (mGy-cm): 1769.03 FINDINGS: Liver: No mass. Gallbladder and bile ducts: Cholecystectomy. No biliary ductal dilatation. Pancreas: Normal. No ductal dilation. Spleen: Normal. No splenomegaly. Adrenal glands: Normal. No mass. Kidneys and ureters: Very small, punctate right renal calculus, no hydronephrosis or perinephric edema. No solid mass. Stomach and bowel: No acute findings. No obstruction. No mucosal thickening. Appendix: No evidence of appendicitis. Intraperitoneal space: Unremarkable. No free air. No significant fluid collection. Vasculature: No abdominal aortic aneurysm. Lymph nodes: No significant adenopathy. Urinary bladder: Unremarkable as visualized. Reproductive: Hysterectomy. Bones/joints: No acute findings. Soft tissues: Unremarkable. CT/CT abdomen pelvis w con* [id number] IMPRESSION: No acute findings. Radiation Dose CTDIVOL = (mGy): DLP = 1769.03 (mGy-cm)
--- NOTE | 2021-05-16 09:08 | ED_ITS ---
HPI - Abdominal Pain General: Chief Complaint: Abdominal Pain Stated Complaint: ABD PAIN Time Seen by Provider: 05/16/21 08:53 Source: patient and EMS Mode of arrival: EMS History of Present Illness: HPI narrative: Latesha is a 55-year-old female who states for the past 2 days she has had significant nausea vomiting and diarrhea. States she been unable to keep anything down. She also complains of diarrhea. Both her emesis and stools have been nonbloody. Denies any fevers or chills. Denies chest pain or shortness of breath. Patient states she is had this happen to her before. She was advised by her steward/stewardess club car Dr. Amanda Whipple to come to the emergency room to be evaluated. Patient also describes diffuse cramping abdominal pain. Associated Symptoms: Reports diarrhea, nausea and vomiting; Denies chills, coffee ground emesis, constipation, GI cramping, dysuria, fever(s), heartburn, hematochezia, hematuria, hematemesis, melena and syncope Related Data: Date of Last Menstrual Period: 06/19/95 Review of Systems Const: Denies: fever(s), chills, body aches, fatigue, malaise or diaphoresis Eyes: Denies: change in vision, blurry vision, photophobia, eye discomfort, eye discharge, eye redness or yellow eyes ENMT: Denies: throat pain, odynophagia, hoarseness, swelling of lips/tongue, ear or mastoid pain, ear discharge, change in hearing or nasal discharge Card: Denies: chest pain, palpitations, irregular heart rhythm, edema, lightheadedness, syncope, pre-syncope, dyspnea on exertion or orthopnea Resp: Denies: dyspnea, productive cough, non-productive cough, wheezing, hemoptysis or chest congestion GI: Reports: abdominal pain, nausea, vomiting and diarrhea; Denies: hematemesis, coffee ground emesis, heartburn, constipation, GI cramping, hematochezia or melena : Denies: flank pain, dysuria, urinary frequency, urinary urgency or hematuria Musc: Denies: neck pain, back pain, extremity pain, extremity swelling, joint pain, joint swelling, joint redness, joint warmth or joint stiffness Skin/Breast: Denies: rash, pruritus, erythema, skin pain or skin tenderness Neuro: Denies: headache(s), numbness in extremities, weakness in extremities, sensory changes, lack of coordination, difficulty walking, dizziness, vertigo, confusion, Slurred speech present or seizure-like activity Wilbur/Lymph: Denies: easy bruising, easy bleeding, petechiae, purpura or enlarged lymph nodes All/Imm: Denies: urticaria, throat swelling, tongue swelling, facial swelling or acute wheezing PFSH ED PFSH: Medical History Bladder stone Borderline personality disorder Chronic anxiety Chronic back pain greater than 3 months duration Chronic gastritis without bleeding COPD (chronic obstructive pulmonary disease) Cystitis cystica Dysphagia Esophageal stricture Foreign body in bladder GERD without esophagitis Neurogenic bladder Psychiatric care Restrictive lung disease Schizoaffective disorder, bipolar type Tardive dyskinesia Urgency incontinence Surgical History H/O bladder repair surgery MESH REPAIR H/O colonoscopy with polypectomy H/O esophagogastroduodenoscopy (09/21/20) H/O: hysterectomy History of appendectomy History of breast biopsy History of foot surgery sx in 2009. Screws placed by Dr. Don. History of ureter stent Hx of cholecystectomy S/P bronchoscopy with biopsy Family History Mother No problems noted. Father No problems noted. Other Asthma Cancer Diabetes Heart disease Social History Quit status (tobacco): considering quitting Second hand smoke exposure: Yes Smoking risk assessment/counseling performed?: No Alcohol intake: never Counseling given: No Counseling given: No Lives independently: Yes Household members: spouse Marital status: Number of children: 3 Current occupational status: disabled History of recent travel: No Current gender identity: Female Female Reproductive History: Date of last menstrual period: 06/19/95 Physical Exam Const: COMMON NORMALS: no acute distress, patient oriented x3, no limitations and alert GENERAL APPEARANCE: cooperative HENMT: COMMON NORMALS: normocephalic, atraumatic, external ears normal, EAC's normal and Normal external nose present HEAD & SCALP: normal to inspection, normocephalic and atraumatic FACE & SINUS: normal facial exam and face symmetric NOSE: Normal external nose present and Normal nares present EXTERNAL EAR: Yes external ears normal EXTERNAL AUDITORY CANAL: EAC's normal MOUTH: Normal oral and palatal mucosa present, lip normal and tongue normal Eye: COMMON NORMALS: Equal, round and reactive pupils present and conjunctivae normal GENERAL EYE: appearance normal, both eyes and all related structures ALIGNMENT: Yes alignment normal PERIORBITAL: periorbital findings normal EYELID: eyelids normal CONJUNCTIVA: Yes conjunctivae normal SCLERA: sclerae normal PUPIL: Yes Equal, round and reactive pupils present Neck/C-Spine: COMMON NORMALS: full ROM, no lymphadenopathy, supple, no meningeal signs and no JVD GENERAL: Yes normal visual inspection and Yes trachea midline Chest: COMMONS NORMALS: normal inspection of the chest and normal palpation of entire chest wall Resp: COMMON NORMALS: normal respiratory effort, No retractions, No use of accessory muscles and clear to auscultation bilaterally EFFORT & INSPECTION: Yes able to speak in complete sentences and Yes symmetric chest movement AUSCULTATION: clear to auscultation bilaterally, no crackles, no rales, no rhonchi and no wheezes Cardio: COMMON NORMALS: no JVD, regular rate, regular rhythm, S1 normal heart sound present and S2 normal heart sound present RATE: regular rate RHYTHM: regular rhythm HEART SOUNDS: S1 normal heart sound present, S2 normal heart sound present, no click, no gallops, no murmurs and no rubs GI: COMMON NORMALS: Soft to palpation and No hepatosplenomegaly present PALPATION: Yes Soft to palpation, Yes Tenderness to palpation present (GI) (mild diffusly), No Guarding due to palpation present (GI), No Rigid due to palpation, Yes No hepatosplenomegaly present, No Hernia present, No Palpable mass present and No Pulsatile mass present : COMMON NORMALS: Yes no CVA tenderness BLADDER/KIDNEY EXAM: Yes no CVA tenderness EXTERNAL FEMALE EXAM: No Hernia present Back/Pelvis: COMMON NORMALS: no CVA tenderness, thoracic and lumbar spine normal to inspection, no thoracic nor lumbar tenderness and thoraco-lumbar ROM normal Extremity: COMMON NORMALS: normal to inspection, full ROM, capillary refill n ormal, no joint enlargement, no clubbing, cyanosis or edema and no calf tenderness Neuro: COMMON NORMALS: patient oriented x3, CN's II-XII intact bilaterally, moves all extremities, no focal motor deficits and no sensory deficits noted SENSORIUM/ORIENTATION: Yes alert MENINGEAL SIGNS: Yes no meningeal signs SPEECH: speech normal Psych: COMMON NORMALS: mental status grossly normal, Normal thought process present, cooperative, normal affect, speech normal and activity/motor behavior normal SPEECH: Yes normal speech THOUGHT PROCESS: Normal thought process present Skin: COMMON NORMALS: no rashes or lesions noted, turgor normal, no jaundice, no petechiae and no mottling GENERAL SKIN EXAM: no rashes or lesions noted and turgor normal Course Vital Signs: Vital signs: Vital Signs Temperature 98.2 F 05/16/21 08:56 Pulse Rate 80 05/16/21 09:42 Respiratory Rate 16 05/16/21 09:40 Blood Pressure 160/85 05/16/21 09:42 Pulse Oximetry 94 05/16/21 09:42 MDM - Abdominal Pain MDM Narrative: Medical decision making narrative: 1133 -patient is feeling better this time. Her CT and labs have all come back normal. She is a nonsurgical abdomen to repeat examination. She may be somewhat dehydrated so will finish IV fluids. She understands if she continues to have this pain she will need to be worked up by her steward/stewardess club car. She denies other complaints or concerns and agrees with this follow-up plan and treatment plan should she have another problem. Differential Diagnosis: Differential diagnosis abdominal pain: Likely abdominal pain, acute appendicitis, calculus of kidney, constipation, diverticulitis, endometriosis, gastroenteritis, pancreatitis and small bowel obstruction Medical Records: Attestation: I reviewed the patient's medical records. Lab Data: Attestation: I reviewed the patient's lab results. Labs: Lab Results 05/16/21 05/16/21 05/16/21 09:49 09:49 09:49 WBC 6.9 10^3/uL 10^3/ uL (4.0-10.0) RBC 4.99 10^6/uL 10^6 /uL (4.1-5.3) Hgb 15.9 g/dL H g/dL (11.5-15.3) Hct 47.6 % H % (37.0-47.0) MCV 95.4 fl fl (81-99) MCH 31.9 pg pg (28.0-34.0) MCHC 33.4 g/dL g/dL (30.0-36.0) RDW 15.2 % H % (12.1-15.1) Plt Count 223 10^3/cmm 10^3 /cmm (130-400) MPV 10.8 fL H fL (7.4-10.4) Neut % (Auto) 65.7 % % Lymph % (Auto) 25.6 % % Mora % (Auto) 6.0 % % Eos % (Auto) 0.7 % % Baso % (Auto) 1.6 % % Neut # (Auto) 4.51 10^3/uL 10^3 /uL (1.8-7.7) Lymph # (Auto) 1.8 10^3/uL 10^3/ uL (0.8-4.8) Mora # (Auto) 0.4 10^3/uL 10^3/ uL (0.2-0.9) Eos # (Auto) 0.1 10^3/uL 10^3/ uL (0.0-0.8) Baso # (Auto) 0.1 10^3/uL 10^3/ uL (0.0-0.1) Nucleated RBC % (a uto) 0 % % Nucleated RBCs # 0.0 /100WBC /100W BC Sodium 136 mmol/L mmol/L (136-145) Potassium 4.1 mmol/L mmol/L (3.5-5.1) Chloride 101 mmol/L mmol/L (98-107) Carbon Dioxide 21 mmol/L L mmol/ L (22-29) Anion Gap 18.1 (5-19) BUN 10 mg/dL mg/dL (6-20) Creatinine 0.9 mg/dL mg/dL (0.5-0.9) GFR Calculation 65.5 mL/min L mL/ min (90-130) Glucose 91 mg/dL mg/dL (65-115) Calculated Osmolal ity 281 mOsm/kg L mOs m/kg (285-295) Calcium 9.6 mg/dL mg/dL (8.5-10.5) Magnesium 2.1 mg/dL mg/dL (1.7-2.3) Total Bilirubin 0.4 mg/dL mg/dL (0.15-1.2) AST 9 U/L U/L (0-32) ALT 6 U/L U/L (0-33) Alkaline Phosphata se 136 IU/L H IU/L (35-105) Total Protein 6.6 g/dL g/dL (6.6-8.7) Albumin 4.4 g/dL g/dL (3.5-5.2) Globulin 2.2 g/dL g/dL (1.3-4.6) Lipase 23 U/L U/L (13-60) Ser , Bev i-Qnt 1.20 mIU/mL mIU/m L Urine Color Yellow (Yellow) Urine Appearance Clear (CLEAR) Urine pH 5 (5-7) Ur Specific Gravit y 1.010 (1.005-1.030) Urine Protein Neg (Negative) Urine Glucose (UA) Norm (Normal) Urine Ketones Negative (Negative) Urine Blood Neg (Negative) Urine Nitrate Negative (Negative) Urine Bilirubin Neg (Negative) Urine Urobilinogen Norm mg/dL mg/dL (Negative) Ur Leukocyte Stephanie ase Negative (Negative) Discharge Plan Discharge Patient Disposition: Home Clinical Impression: Abdominal pain Condition: Stable Prescriptions: No Action olanzapine 5 mg tablet 5 mg PO BEDTIME RF: 0 azithromycin 250 mg tablet See Rx Instructions PO .COMPLEX Qty: 6 RF: 0 ondansetron HCl [Zofran] 4 mg tablet 4 mg PO QID PRN (Reason: nausea and vomiting) Qty: 14 RF: 0 ciprofloxacin-dexamethasone [Ciprodex] 0.3-0.1 % drops,suspension 4 drp otic (ear) Q12H 7 Days Qty: 7.5 RF: 0 nystatin [Nystop] 100,000 unit/gram powder 1 applic topical BID Qty: 60 RF: 0 fluticasone propionate 50 mcg/actuation spray,suspension See Rx Instructions .ROUTE .COMPLEX Qty: 48 RF: 0 pantoprazole 40 mg tablet,delayed release (DR/EC) 40 mg PO DAILY Qty: 90 RF: 1 hydroxyzine pamoate 50 mg capsule See Rx Instructions .ROUTE .COMPLEX 30 Days Qty: 150 RF: 1 lamotrigine 200 mg tablet 200 mg PO DAILY Qty: 30 RF: 1 trazodone 300 mg tablet 300 mg PO BEDTIME Qty: 30 RF: 1 Breo Ellipta 100-25 mcg/dose blister with device 1 inh inhalation DAILY@0600 RF: 0 Pepcid 20 mg tablet 20 mg PO BID PRN (Reason: abdominal pain) 10 Days Qty: 20 RF: 0 Maalox Advanced 1,000-60 mg tablet,chewable 1 tab PO TID PRN (Reason: abdominal pain) 7 Days Qty: 21 RF: 0 acetaminophen [Tylenol Arthritis Pain] 650 mg Tablet Extended Release 1,000 mg PO Q6H PRN (Reason: Pain) RF: 0 albuterol sulfate 90 mcg/actuation HFA aerosol inhaler 2 puff inhalation Q6H PRN (Reason: shortness of breath or wheezing) RF: 0 ipratropium-albuterol 0.5 mg-3 mg(2.5 mg base)/3 mL solution for nebulization 3 ml inhalation Q4H PRN (Reason: Shortness Of Breath Or Wheezing) RF: 0 nitrofurantoin monohyd/m-cryst 100 mg capsule 100 mg PO BID RF: 0 Ingrezza 80 mg capsule 80 mg PO DAILY RF: 0 citalopram 20 mg Tablet 40 mg PO DAILY 30 Days Qty: 60 RF: 1 Discharge Orders: Discharge ED (Routine); Ordered 05/16/21 Ordered By: Ann Morgan Referrals: Dara Tavera, [facility] [Primary Care Provider] - 1-3 days Discharge Diet: Advance as tolerated and Clear Liquid Discharge Activity: Increase activity as tolerated Patient Instructions: Abdominal Pain (ED) Activity Restrictions/Additional Instructions: Please return to the ER immediately for any of the signs or symptoms listed on your discharge instruction sheets, worsening/changing of your symptoms, you are not getting better as quickly as expected, or for ANY other cause or concerns. Please return to the ER immediately for any of the signs or symptoms listed on your discharge instruction sheets, return of your pain, fever, diarrhea, blood in your stools, or for any other cause for concern. Coding Level of Care Code ED Risk Adjustment Specialist for [facility] Fwd Exam Comprehensive
[2021-05-16 09:11] VITALS: BP 160/85; PULSE 74; O2SAT 96
[2021-05-16] MEDS: lactated ringers 1,000 ML 999 ML IV (09:38)
[2021-05-16] MEDS: ondansetron 2 mg/ML SDV 2 mL 4 MG IVP (09:39)
[2021-05-16 09:40] VITALS: RESP 16
[2021-05-16] MEDS: HYDROmorphone 1 mg/mL INJ 1 mL IVP (09:40)
[2021-05-16 09:42] VITALS: BP 160/85; PULSE 80; O2SAT 94
[2021-05-16 10:07] LABS: Add Urine Microscopic? NO; Charge for UA Resulting for Rev
[2021-05-16 10:12] LABS: Basophils # 0.1 10^3/uL (0.0-0.1); Basophils % 1.6 %; Eosinophils # 0.1 10^3/uL (0.0-0.8); Eosinophils % 0.7 %; Hematocrit 47.6 % (37.0-47.0); Hemoglobin 15.9 g/dL (11.5-15.3); Lymphocytes # 1.8 10^3/uL (0.8-4.8); Lymphocytes % 25.6 %; Mean Corpuscular HGB Conc 33.4 g/dL (30.0-36.0); Mean Corpuscular Hemoglobin 31.9 pg (28.0-34.0); Mean Corpuscular Volume 95.4 fl (81-99); Mean Platelet Volume 10.8 fL (7.4-10.4); Monocytes # 0.4 10^3/uL (0.2-0.9); Neutrophils # 4.51 10^3/uL (1.8-7.7); Neutrophils % 65.7 %; Nucleated Red Blood Cells % 0 %; Platelet Count 223 10^3/cmm (130-400); Red Blood Count 4.99 10^6/uL (4.1-5.3); Red Cell Distribution Width 15.2 % (12.1-15.1); White Blood Count 6.9 10^3/uL (4.0-10.0)
[2021-05-16 10:36] LABS: Bilirubin Urine Neg (Negative); Blood Urine Neg (Negative); Glucose Urine UA Norm (Normal); Ketones Urine Negative (Negative); Leukocyte Esterase Urine Negative (Negative); Nitrate Urine Negative (Negative); Protein Urine Neg (Negative); Urine Appearance Clear (CLEAR); Urine Color Yellow (Yellow); Urobilinogen Urine Norm (Negative); pH Urine 5 (5-7)
[2021-05-16] MEDS: iohexol 300 mg/mL 100 mL Btl IV (10:36)
[2021-05-16 10:47] LABS: Alanine Aminotransferase 6 U/L (0-33); Albumin Level 4.4 g/dL (3.5-5.2); Alkaline Phosphatase 136 IU/L (35-105); Anion Gap 18.1 (5-19); Aspartate Amino Transferase 9 U/L (0-32); Blood Urea Nitrogen 10 mg/dL (6-20); Calcium 9.6 mg/dL (8.5-10.5); Carbon Dioxide 21 mmol/L (22-29); Chloride 101 mmol/L (98-107); Globulin 2.2 g/dL (1.3-4.6); Glomerular Filtration Rate 65.5 mL/min (90-130); Glucose 91 mg/dL (65-115); Lipase 23 U/L (13-60); Magnesium 2.1 mg/dL (1.7-2.3); Osmolality Calculated 281 mOsm/kg (285-295); Potassium 4.1 mmol/L (3.5-5.1); Sodium 136 mmol/L (136-145); Total Bilirubin 0.4 mg/dL (0.15-1.2); Total Protein 6.6 g/dL (6.6-8.7)
[2021-05-16 11:56] LABS: ABG PCO2 43.2 mmHg (35-45); ABG PH Result 7.38 (7.35-7.45); Alveolar-Arterial Oxygen Gradi 4.3 mmHg (5-10); Arterial Blood Gas Hematocrit 44.4 % (37-47); Base Excess ABG 0.1 mmol/L (-2.0-2.0); Blood Gas Sample Type Arterial; HCO3 ABG 25.5 mmol/L (22-26); HGB O2 Sat 84.3 % (95-100); Ionized Calcium Level - ABG 1.3 mmol/L (1.1-1.4); Methemoglobin 0.5 % (0.4-1.5); Oxygen Saturation ABG 94.1; PO2 ABG 64.4 mmHg (80.0-100.0); Total Hemoglobin 14.5 g/dL (12-16)
[2021-05-16 11:57] LABS: Blood Gas Operator Identificat ED; Blood Gas Sample Site Brachial, right; Oxygen Device ROOM AIR
[2021-05-16 12:52] VITALS: BP 160/85; PULSE 80; O2SAT 96
== END 2021-05-16 12:54 | disposition home or self-care (01) ==
PROVIDERS: Emergency Provider Emergency Medicine; PCP Registered Nurse
DX: R10.9 Unspecified abdominal pain (principal); J44.9 Chronic obstructive pulmonary disease, unspecified; Z77.22 Contact with and (suspected) exposure to environmental tobacco smoke (acute) (chronic); Z87.442 Personal history of urinary calculi
CPT/HCPCS: 36600; 74177; 80051; 80053; 81003; 82330; 82805; 83690; 83735; 84702; 85025; 96361; 96374; 96375; 99284; J1170; J2405; Q9967

== ENCOUNTER 2021-05-24 12:37 | Emergency (ER) | payer MEDICARE, MEDICAID, SELFPAY ==
[2021-05-24 13:05] VITALS: BP 138/79; PULSE 89; RESP 16; TEMP 36.7; O2SAT 98
[2021-05-24 14:42] LABS: Basophils # 0.1 10^3/uL (0.0-0.1); Basophils % 0.7 %; Eosinophils # 0.2 10^3/uL (0.0-0.8); Eosinophils % 1.3 %; Hematocrit 49.3 % (37.0-47.0); Hemoglobin 16.1 g/dL (11.5-15.3); Lymphocytes # 2.4 10^3/uL (0.8-4.8); Lymphocytes % 15.5 %; Mean Corpuscular HGB Conc 32.7 g/dL (30.0-36.0); Mean Corpuscular Hemoglobin 32.1 pg (28.0-34.0); Mean Corpuscular Volume 98.2 fl (81-99); Mean Platelet Volume 11.1 fL (7.4-10.4); Monocytes # 0.8 10^3/uL (0.2-0.9); Monocytes % 4.8 %; Neutrophils % 77.3 %; Nucleated Red Blood Cells % 0 %; Platelet Count 213 10^3/cmm (130-400); Red Blood Count 5.02 10^6/uL (4.1-5.3); Red Cell Distribution Width 14.9 % (12.1-15.1); White Blood Count 15.7 10^3/uL (4.0-10.0)
[2021-05-24 15:06] LABS: Alanine Aminotransferase 6 U/L (0-33); Albumin Level 4.4 g/dL (3.5-5.2); Alkaline Phosphatase 133 IU/L (35-105); Blood Urea Nitrogen 14 mg/dL (6-20); Calcium 9.1 mg/dL (8.5-10.5); Carbon Dioxide 18 mmol/L (22-29); Chloride 102 mmol/L (98-107); Globulin 2.2 g/dL (1.3-4.6); Glucose 84 mg/dL (65-115); Lipase 21 U/L (13-60); Osmolality Calculated 286 mOsm/kg (285-295); Sodium 138 mmol/L (136-145); Total Bilirubin 0.3 mg/dL (0.15-1.2); Total Protein 6.6 g/dL (6.6-8.7)
[2021-05-24 15:09] LABS: Anion Gap 22.1 (5-19); Aspartate Amino Transferase 10 U/L (0-32); Potassium 4.1 mmol/L (3.5-5.1)
--- NOTE | 2021-05-24 16:16 | CTR_ITS ---
PROCEDURE INFORMATION: Exam: CT Abdomen And Pelvis With Contrast Exam date and time: 05/24/2021 4:16 PM Age: 55 years old Clinical indication: Nausea and vomiting; Abdominal pain; Localized; Lower; Prior surgery; Surgery type: Gb, appy; Additional info: Abd pain TECHNIQUE: Imaging protocol: Computed tomography of the abdomen and pelvis with contrast. Radiation optimization: All CT scans at this facility use at least one of these dose optimization techniques: automated exposure control; mA and/or kV adjustment per patient size (includes targeted exams where dose is matched to clinical indication); or iterative reconstruction. Contrast material: OMNI 300; Contrast volume: 95 ml; Contrast route: INTRAVENOUS (IV); COMPARISON: CT abdomen pelvis w con* [id number] 05/16/2021 10:35 AM RADIATION DOSE METRICS: Total DLP (mGy-cm): 1708.67 FINDINGS: Liver: Hepatic steatosis. Gallbladder and bile ducts: Cholecystectomy. Pancreas: Normal. No ductal dilation. Spleen: Normal. No splenomegaly. Adrenal glands: Normal. No mass. Kidneys and ureters: Right kidney punctate nonobstructive renal calculus. Stomach and bowel: Unremarkable. No obstruction. No mucosal thickening. Appendix: No evidence of appendicitis. Intraperitoneal space: Unremarkable. No free air. No significant fluid collection. Vasculature: Unremarkable. No abdominal aortic aneurysm. Lymph nodes: Unremarkable. No enlarged lymph nodes. Urinary bladder: Unremarkable as visualized. Reproductive: Unremarkable as visualized. Bones/joints: Unremarkable. No acute fracture. Soft tissues: Unremarkable. CT/CT abdomen pelvis w con* [id number] IMPRESSION: 1. Negative for acute inflammatory process in the abdomen or pelvis. 2. Hepatic steatosis. 3. Cholecystectomy. 4. Right kidney punctate nonobstructive renal calculus.
[2021-05-24 16:53] LABS: Partial Thromboplastin Time 33.3 SECONDS (23.9-36.7)
[2021-05-24] MEDS: iohexol 300 mg/mL 100 mL Btl IV (16:55)
[2021-05-24 16:58] VITALS: BP 147/70; PULSE 71; RESP 20; TEMP 36.9; O2SAT 96
[2021-05-24 17:12] VITALS: RESP 18; O2SAT 96
[2021-05-24] MEDS: ondansetron 2 mg/ML SDV 2 mL 4 MG IVP (17:12)
[2021-05-24] MEDS: morphine 4 mg/mL SDV 1 mL IVP (17:12)
[2021-05-24] MEDS: sodium chloride 0.9% 1,000 ML 999 ML IV (17:13)
--- NOTE | 2021-05-24 17:16 | ED_ITS ---
HPI - General Adult General: Chief complaint: Abdominal Pain Stated complaint: ABD PAIN Time Seen by Provider: 05/24/21 16:16 History of Present Illness: HPI narrative: Patient is a 55-year-old female with history of prior appendectomy, cholecystectomy, depression/anxiety/bipolar disorder presenting to the emergency room with complaints of periumbilical pain since 8 AM this morning. Patient said that she has had multiple episodes since this morning. Patient says that she has been able to pass gas and stool okay up until today. Denies any fever or chills, foreign body ingestion. No suicidal ideation or homicidal ideation or hallucination at this time. Patient denies any diarrhea, cough, runny nose, sore throat, chest pain shortness breath or palpitation. Has had multiple prior admissions for chest abdominal pain. Says that today's abdominal pain is different from prior abdominal pain. Denies any melena and hematochezia. No urinary complaints. Onset: 8 hrs liu Duration:8 hrs Location:home Severity:moderate Review of Systems Narrative: Constitutional: No fever, no chills. HEENT: No vision changes CV: No chest pain, no palpitations PULM: no cough, no dyspnea. GI: +periumbilical abdominal pain, +N/+V/+D. : No dysuria MSKEL: No muscle pain SKIN: No new rashes, no lesions. NEURO: No headache, no focal weakness. HEME: No visible bruises PSYCH: Normal mood PFS ED PFSH: Medical History Bladder stone Borderline personality disorder Chronic anxiety Chronic back pain greater than 3 months duration Chronic gastritis without bleeding COPD (chronic obstructive pulmonary disease) Cystitis cystica Dysphagia Esophageal stricture Foreign body in bladder GERD without esophagitis Neurogenic bladder Psychiatric care Restrictive lung disease Schizoaffective disorder, bipolar type Tardive dyskinesia Urgency incontinence Surgical History H/O bladder repair surgery MESH REPAIR H/O colonoscopy with polypectomy H/O esophagogastroduodenoscopy (09/21/20) H/O: hysterectomy History of appendectomy History of breast biopsy History of foot surgery sx in 2009. Screws placed by Dr. Don. History of ureter stent Hx of cholecystectomy S/P bronchoscopy with biopsy Family History Mother No problems noted. Father No problems noted. Other Asthma Cancer Diabetes Heart disease Social History Quit status (tobacco): considering quitting Second hand smoke exposure: Yes Smoking risk assessment/counseling performed?: No Alcohol intake: never Counseling given: No Counseling given: No Lives independently: Yes Household members: spouse Marital status: Number of children: 3 Current occupational status: disabled History of recent travel: No Current gender identity: Female Female Reproductive History: Date of last menstrual period: 06/19/95 Physical Exam Narrative: EXAM NARRATIVE: Head: Atraumatic Eyes: PERRL, conjunctiva without injection ENT: Mucous membrane moist NECK: Supple, ROM intact LUNGS: LCTAB, no crackles/rhonchi CV: RRR ABDOMEN: Soft, +moderate periumbulical TTP. NO guarding rebound, guarding, rigidity. No CVA tenderness to percussion. Neg Guidno/Neg McBurney's point tenderness, no suprabupic tenderness to palpation. EXTREMITY: Normal ROM SKIN: No rash or erythema NEURO: Awake and alert, no focal motor deficits PSYCH: Normal mood and affect Course Vital Signs: Vital signs: Vital Signs Temperature 98.5 F 05/24/21 16:58 Pulse Rate 71 05/24/21 16:58 Respiratory Rate 18 05/24/21 17:12 Blood Pressure 147/70 05/24/21 16:58 Pulse Oximetry 96 05/24/21 17:12 MDM - General Adult MDM Narrative: Medical decision making narrative: 55-year-old female presented to emergency room with complaints of periumbilical pain nausea vomiting since 8 AM this morning. On exam, patient is afebrile hemodynamically stable with mild tenderness palpation in periumbilical area. No guarding no rebound tenderness. White count of 15.7 today. Patient appears to be hemoconcentrated 16.1. Creatinine within normal limit. Electrolytes within normal limit. CT abdomen pelvis not showing signs of focal findings. Patient received IVF, Zofran, GI cocktail with improvement in symptoms. Patient is able to tolerate p.o. without difficulty. No suspicion for other acute intra-abdominal pathology including SBO, biliary pathology, appendicitis, diverticulitis, or other emergent condition requiring surgery. Considered appendicitis however unlikely at this time given lack of signs and sx's to suggest appendicitis as etiology. Pt counseled that appendicitis may later develop and given appendicitis precautions and instructed to return if any development of RLQ tenderness, worsening or continued abdominal pain, or any fevers, chills, nausea, vomiting, or any other concerning signs or symptoms. UA is consistent with possible UTI, will treat empirically with nitrofurantoin given multiple allergies Rx tylenol PRN abd pain, maalox/pepcid PRN dyspepsia, and zofran PRN nausea/vomiting, nitrofurantoin BID x 7 days for UTI Disposition: Discharge. Patient counseled regarding diagnostic impression, treatment plan. Patient given ED strict return precautions to return for continuation, worsening, or development of new symptoms. Instructed to f/u w/ PCP regarding symptoms today. Patient verbalized understanding. Lab Data: Labs: Lab Results 05/24/21 05/24/21 05/24/21 14:25 14:25 14:25 WBC 15.7 10^3/uL H 10 ^3/uL (4.0-10.0) RBC 5.02 10^6/uL 10^6 /uL (4.1-5.3) Hgb 16.1 g/dL H g/dL (11.5-15.3) Hct 49.3 % H % (37.0-47.0) MCV 98.2 fl fl (81-99) MCH 32.1 pg pg (28.0-34.0) MCHC 32.7 g/dL g/dL (30.0-36.0) RDW 14.9 % % (12.1-15.1) Plt Count 213 10^3/cmm 10^3 /cmm (130-400) MPV 11.1 fL H fL (7.4-10.4) Neut % (Auto) 77.3 % % Lymph % (Auto) 15.5 % % Antelope % (Auto) 4.8 % % Eos % (Auto) 1.3 % % Baso % (Auto) 0.7 % % Neut # (Auto) 12.10 10^3/uL H 1 0^3/uL (1.8-7.7) Lymph # (Auto) 2.4 10^3/uL 10^3/ uL (0.8-4.8) Antelope # (Auto) 0.8 10^3/uL 10^3/ uL (0.2-0.9) Eos # (Auto) 0.2 10^3/uL 10^3/ uL (0.0-0.8) Baso # (Auto) 0.1 10^3/uL 10^3/ uL (0.0-0.1) Nucleated RBC % (a uto) 0 % % Nucleated RBCs # 0.0 /100WBC /100W BC PT 13.50 SECONDS SEC ONDS (12.1-14.9) INR 1.00 (0.8-1.2) APTT 33.3 SECONDS SECO NDS (23.9-36.7) Sodium 138 mmol/L mmol/L (136-145) Potassium 4.1 mmol/L mmol/L (3.5-5.1) Chloride 102 mmol/L mmol/L (98-107) Carbon Dioxide 18 mmol/L L mmol/ L (22-29) Anion Gap 22.1 H (5-19) BUN 14 mg/dL mg/dL (6-20) Creatinine 1.0 mg/dL H mg/dL (0.5-0.9) GFR Calculation 58.0 mL/min L mL/ min (90-130) Glucose 84 mg/dL mg/dL (65-115) Calculated Osmolal ity 286 mOsm/kg mOsm/ kg (285-295) Lactate Calcium 9.1 mg/dL mg/dL (8.5-10.5) Total Bilirubin 0.3 mg/dL mg/dL (0.15-1.2) AST 10 U/L U/L (0-32) ALT 6 U/L U/L (0-33) Alkaline Phosphata se 133 IU/L H IU/L (35-105) Total Protein 6.6 g/dL g/dL (6.6-8.7) Albumin 4.4 g/dL g/dL (3.5-5.2) Globulin 2.2 g/dL g/dL (1.3-4.6) Lipase 21 U/L U/L (13-60) Urine Color Urine Appearance Urine pH Ur Specific Gravit y Urine Protein Urine Glucose (UA) Urine Ketones Urine Blood Urine Nitrate Urine Bilirubin Urine Urobilinogen Ur Leukocyte Stephanie ase Urine RBC Urine WBC Ur Squamous Epith Cells Ur Transition Epit h Cell Amorphous Sediment Urine Bacteria 05/24/21 05/24/21 16:50 18:23 WBC RBC Hgb Hct MCV MCH MCHC RDW Plt Count MPV Neut % (Auto) Lymph % (Auto) Antelope % (Auto) Eos % (Auto) Baso % (Auto) Neut # (Auto) Lymph # (Auto) Antelope # (Auto) Eos # (Auto) Baso # (Auto) Nucleated RBC % (a uto) Nucleated RBCs # PT INR APTT Sodium Potassium Chloride Carbon Dioxide Anion Gap BUN Creatinine GFR Calculation Glucose Calculated Osmolal ity Lactate 1.2 mmol/L mmol/L (0.5-2.2) Calcium Total Bilirubin AST ALT Alkaline Phosphata se Total Protein Albumin Globulin Lipase Urine Color Yellow (Yellow) Urine Appearance Clear (CLEAR) Urine pH 6.5 (5-7) Ur Specific Gravit y 1.005 (1.005-1.030) Urine Protein 1+ H (Negative) Urine Glucose (UA) Norm (Normal) Urine Ketones Negative (Negative) Urine Blood Neg (Negative) Urine Nitrate Positive H (Negative) Urine Bilirubin Neg (Negative) Urine Urobilinogen 1 mg/dL H mg/dL (Negative) Ur Leukocyte Stephanie ase Trace H (Negative) Urine RBC Not Reportable Urine WBC 15-25 /hpf H /hpf (0-5) Ur Squamous Epith Cells 5-10 /hpf H /hpf (0-5) Ur Transition Epit h Cell 0-4 /hpf /hpf Amorphous Sediment Not Reportable Urine Bacteria 1+ /hpf H /hpf (NONE) Imaging Data^: Other Imaging: Radiologist's impression: [address] [id number] Scan ReportSigned Patient: Latesha Wilhelm AUnit #: [id number]: [id number] t#:[id number]/Sex: 55 / FADM Date: 05/24/21Loc: ERRoom/Bed:Attending Dr: Ordering Provider/Ordering MD: Garett Chávez MD Date of Service: 05/24/21 Procedure(s): CT abdomen pelvis w con* [id number] Accession Number(s): [id number] Report Number: [id number] PROCEDURE INFORMATION: Exam: CT Abdomen And Pelvis With Contrast Exam date and time: 05/24/2021 4:16 PM Age: 55 years old Clinical indication: Nausea and vomiting; Abdominal pain; Localized; Lower; Prior surgery; Surgery type: Gb, appy; Additional info: Abd pain TECHNIQUE: Imaging protocol: Computed tomography of the abdomen and pelvis with contrast. Radiation optimization: All CT scans at this facility use at least one of these dose optimization techniques: automated exposure control; mA and/or kV adjustment per patient size (includes targeted exams where dose is matched to clinical indication); or iterative reconstruction. Contrast material: OMNI 300; Contrast volume: 95 ml; Contrast route: INTRAVENOUS (IV); COMPARISON: CT abdomen pelvis w con* [id number] 05/16/2021 10:35 AM RADIATION DOSE METRICS: Total DLP (mGy-cm): 1708.67 FINDINGS: Liver: Hepatic steatosis. Gallbladder and bile ducts: Cholecystectomy. Pancreas: Normal. No ductal dilation. Spleen: Normal. No splenomegaly. Adrenal glands: Normal. No mass. Kidneys and ureters: Right kidney punctate nonobstructive renal calculus. Stomach and bowel: Unremarkable. No obstruction. No mucosal thickening. Appendix: No evidence of appendicitis. Intraperitoneal space: Unremarkable. No free air. No significant fluid collection. Vasculature: Unremarkable. No abdominal aortic aneurysm. Lymph nodes: Unremarkable. No enlarged lymph nodes. Urinary bladder: Unremarkable as visualized. Reproductive: Unremarkable as visualized. Bones/joints: Unremarkable. No acute fracture. Soft tissues: Unremarkable. CT/CT abdomen pelvis w con* [id number] IMPRESSION: 1. Negative for acute inflammatory process in the abdomen or pelvis. 2. Hepatic steatosis. 3. Cholecystectomy. 4. Right kidney punctate nonobstructive renal calculus. Dictated By:Benedicto Rangel MDSigned By:Benedicto Rangel MDSigned Date/Time:05/24/21 1726 Discharge Plan Discharge Patient Disposition: Home Clinical Impression: Abdominal pain, Nausea & vomiting, UTI (urinary tract infection) Condition: Stable Prescriptions: New Pepcid 20 mg tablet 20 mg PO BID PRN (Reason: abdominal pain) 10 Days Qty: 20 RF: 0 Maalox Advanced 1,000-60 mg tablet,chewable 1 tab PO TID PRN (Reason: abdominal pain) 7 Days Qty: 21 RF: 0 Zofran 4 mg tablet 4 mg PO TID PRN (Reason: nausea and vomiting) 4 Days Qty: 12 RF: 0 nitrofurantoin macrocrystal 100 mg capsule 100 mg PO BID 7 Days Qty: 14 RF: 0 No Action olanzapine 5 mg tablet 5 mg PO BEDTIME RF: 0 azithromycin 250 mg tablet See Rx Instructions PO .COMPLEX Qty: 6 RF: 0 ondansetron HCl [Zofran] 4 mg tablet 4 mg PO QID PRN (Reason: nausea and vomiting) Qty: 14 RF: 0 ciprofloxacin-dexamethasone [Ciprodex] 0.3-0.1 % drops,suspension 4 drp otic (ear) Q12H 7 Days Qty: 7.5 RF: 0 nystatin [Nystop] 100,000 unit/gram powder 1 applic topical BID Qty: 60 RF: 0 fluticasone propionate 50 mcg/actuation spray,suspension See Rx Instructions .ROUTE .COMPLEX Qty: 48 RF: 0 pantoprazole 40 mg tablet,delayed release (DR/EC) 40 mg PO DAILY Qty: 90 RF: 1 hydroxyzine pamoate 50 mg capsule See Rx Instructions .ROUTE .COMPLEX 30 Days Qty: 150 RF: 1 lamotrigine 200 mg tablet 200 mg PO DAILY Qty: 30 RF: 1 trazodone 300 mg tablet 300 mg PO BEDTIME Qty: 30 RF: 1 Ingrezza 80 mg capsule 80 mg PO DAILY Qty: 30 RF: 2 Breo Ellipta 100-25 mcg/dose blister with device 1 inh inhalation DAILY@0600 RF: 0 acetaminophen [Tylenol Arthritis Pain] 650 mg Tablet Extended Release 1,000 mg PO Q6H PRN (Reason: Pain) RF: 0 albuterol sulfate 90 mcg/actuation HFA aerosol inhaler 2 puff inhalation Q6H PRN (Reason: shortness of breath or wheezing) RF: 0 ipratropium-albuterol 0.5 mg-3 mg(2.5 mg base)/3 mL solution for nebulization 3 ml inhalation Q4H PRN (Reason: Shortness Of Breath Or Wheezing) RF: 0 nitrofurantoin monohyd/m-cryst 100 mg capsule 100 mg PO BID RF: 0 citalopram 20 mg Tablet 40 mg PO DAILY 30 Days Qty: 60 RF: 1 Discharge Orders: Discharge ED (Routine); Ordered 05/24/21 Ordered By: Garett Castro: Dara Tavera FNP [Primary Care Provider] - Discharge Diet: Advance as tolerated Discharge Activity: Resume usual activity Patient Instructions: Dysuria (ED), Abdominal Pain (ED) Activity Restrictions/Additional Instructions: Please come back if you have any worsening abdominal pain, fever or chills, nausea or vomiting, diarrhea, blood in the stool, inability hold down liquid or solids, or any new concerning complaints. Please take your antibiotics as instructed. Watch out for signs of skin changes/redness, mouth redeness or swelling, nausea/vomiting, diarrhea, blood in the urine or any new or concering complaints. Take your medicine as instructed for urinary tract infection. Coding Level of Care Code ED Patient Transport Officer for Shellie Guallpa
[2021-05-24 17:21] LABS: Lactate (Lactic Acid level) 1.2 mmol/L (0.5-2.2)
[2021-05-24 19:07] LABS: Charge for UA Resulting for Rev
[2021-05-24 19:13] LABS: Bilirubin Urine Neg (Negative); Blood Urine Neg (Negative); Glucose Urine UA Norm (Normal); Ketones Urine Negative (Negative); Leukocyte Esterase Urine Trace (Negative); Nitrate Urine Positive (Negative); Protein Urine 1+ (Negative); Specific Gravity, Urine 1.005 (1.005-1.030); Urine Appearance Clear (CLEAR); Urine Color Yellow (Yellow); Urobilinogen Urine 1 mg/dL (Negative); pH Urine 6.5 (5-7)
[2021-05-24 19:14] LABS: Add Urine Microscopic? YES
[2021-05-24 19:20] LABS: Bacteria Urine 1+ /hpf; Transitional Epi Cells Urine 0-4 /hpf; WBC Urine 15-25 /hpf (0-5)
[2021-05-24 19:21] LABS: Add Urine Culture? Yes
[2021-05-24 19:35] VITALS: RESP 19; O2SAT 96
[2021-05-24] MEDS: morphine 4 mg/mL SDV 1 mL 2 MG IVP (19:35)
[2021-05-24 19:52] VITALS: BP 118/61; PULSE 70; RESP 15; O2SAT 96
== END 2021-05-24 19:45 | disposition home or self-care (01) ==
PROVIDERS: Physician Assistant; Emergency Provider Emergency Medicine; PCP Registered Nurse
DX: N39.0 Urinary tract infection, site not specified (principal); R11.2 Nausea with vomiting, unspecified; J44.9 Chronic obstructive pulmonary disease, unspecified; Z77.22 Contact with and (suspected) exposure to environmental tobacco smoke (acute) (chronic)
CPT/HCPCS: 74177; 80053; 81001; 81003; 83605; 83690; 85025; 85610; 85730; 87040; 87077; 87086; 87186; 96361; 96374; 96375; 96376; 99283; J2270; J2405; J7030; Q9967

== ENCOUNTER → 2021-05-27 07:46 | Outpatient (BNVA) | payer MEDICARE, MEDICAID, SELFPAY | PROVIDERS: PCP Registered Nurse; Visit Provider Nurse Practitioner | DX: F25.0 Schizoaffective disorder, bipolar type; G24.01 Drug induced subacute dyskinesia; F60.3 Borderline personality disorder | CPT/HCPCS: 99214 ==

== ENCOUNTER 2021-06-03 12:40 | Emergency (ER) | payer MEDICARE, MEDICAID, SELFPAY ==
--- NOTE | 2021-06-03 12:51 | ED_ITS ---
HPI - Nausea/Vomiting/Diarrhea General: Chief complaint: Nausea/Vomiting/Diarrhea Stated complaint: N/V Time Seen by Provider: 06/03/21 12:50 History of Present Illness: HPI Narrative: 55-year-old female presents emergency room complaining of 2 days of nausea and vomiting. She is frequently in the emergency room for similar complaint usually with no significant findings. MD elicited complaint: nausea and vomiting Onset (ago): day(s) (2) Description of vomiting: food contents and watery Associated nausea: Yes Location of pain: Diffuse Severity: mild Quality: cramping Exacerbating factors: none Relieving factors: none Associated symtoms: Reports anxiety, anorexia and nausea; Denies altered mental status, bloating, change in vision, chest pain, cough, diaphoresis, dizziness, dysuria, epistaxis, fecal incontinence, fevers/chills, headache(s), myalgias, numbness, palpitations, rash, short of breath, syncope, tenesmus, tinnitus or weakness Review of Systems Const: Denies: diaphoresis Eyes: Denies: change in vision ENMT: Denies: tinnitus or epistaxis Card: Denies: chest pain, palpitations or syncope GI: Reports: nausea; Denies: bloating or fecal incontinence : Denies: dysuria Neuro: Denies: headache(s) or dizziness Psych: Reports: anxiety PFSH ED PFSH: Medical History Bladder stone Borderline personality disorder Chronic anxiety Chronic back pain greater than 3 months duration Chronic gastritis without bleeding COPD (chronic obstructive pulmonary disease) Cystitis cystica Dysphagia Esophageal stricture Foreign body in bladder GERD without esophagitis Neurogenic bladder Psychiatric care Restrictive lung disease Schizoaffective disorder, bipolar type Tardive dyskinesia Urgency incontinence Surgical History H/O bladder repair surgery MESH REPAIR H/O colonoscopy with polypectomy H/O esophagogastroduodenoscopy (09/21/20) H/O: hysterectomy History of appendectomy History of breast biopsy History of foot surgery sx in 2009. Screws placed by Dr. Don. History of ureter stent Hx of cholecystectomy S/P bronchoscopy with biopsy Family History Mother No problems noted. Father No problems noted. Other Asthma Cancer Diabetes Heart disease Social History Quit status (tobacco): considering quitting Second hand smoke exposure: Yes Smoking risk assessment/counseling performed?: No Alcohol intake: never Counseling given: No Counseling given: No Lives independently: Yes Household members: spouse Marital status: Number of children: 3 Current occupational status: disabled History of recent travel: No Current gender identity: Female Female Reproductive History: Date of last menstrual period: 06/19/95 Physical Exam Const: COMMON NORMALS: no acute distress EXAM LIMITATIONS: no altered mental status GENERAL APPEARANCE: cooperative and comfortable NNAMDI ENTATION/CONSCIOUSNESS: Yes awake, Yes oriented to person, Yes oriented to place and Yes oriented to time HENMT: COMMON NORMALS: normocephalic, atraumatic and hearing grossly normal bilaterally HEAD & SCALP: normocephalic and atraumatic Neck/C-Spine: COMMON NORMALS: no JVD Resp: COMMON NORMALS: normal respiratory effort, No retractions, No use of accessory muscles and clear to auscultation bilaterally AUSCULTATION: clear to auscultation bilaterally Cardio: COMMON NORMALS: no JVD, regular rate, regular rhythm and No murmurs present (Cardio) RATE: regular rate RHYTHM: regular rhythm GI: COMMON NORMALS: Soft to palpation and No hepatosplenomegaly present AUSCULTATION: Yes normoactive bowel sounds PALPATION: Yes Soft to palpation, No Tenderness to palpation present (GI), No Guarding due to palpation present (GI) and Yes No hepatosplenomegaly present Extremity: COMMON NORMALS: normal to inspection, capillary refill normal, no clubbing, cyanosis or edema, no calf tenderness and no pedal edema Neuro: SENSORIUM/ORIENTATION: Yes oriented to person, Yes oriented to place and Yes oriented to time Skin: COMMON NORMALS: no rashes or lesions noted GENERAL SKIN EXAM: no rashes or lesions noted Course Vital Signs: Vital signs: Vital Signs Temperature 97.9 F 06/03/21 12:56 Pulse Rate 70 06/03/21 12:56 Respiratory Rate 18 06/03/21 12:56 Blood Pressure 120/76 06/03/21 12:56 Pulse Oximetry 97 06/03/21 12:56 MDM - Nausea/Vomiting/Diarrhea MDM Narrative: Medical decision making narrative: Labs reviewed with patient. I did not do any advanced imaging had multiple advanced imaging she denies any PPI right now. Multiple times and on the past she is not had any significant findings. Symptoms are all resolved at this time. Discharge home clear liquid diet start pantoprazole 40 twice daily follow-up with primary care. Lab Data: Labs: Lab Results 06/03/21 06/03/21 06/03/21 13:28 13:28 14:20 WBC 9.5 10^3/uL 10^3/ uL (4.0-10.0) RBC 4.48 10^6/uL 10^6 /uL (4.1-5.3) Hgb 14.3 g/dL g/dL (11.5-15.3) Hct 42.5 % % (37.0-47.0) MCV 94.9 fl fl (81-99) MCH 31.9 pg pg (28.0-34.0) MCHC 33.6 g/dL g/dL (30.0-36.0) RDW 14.5 % % (12.1-15.1) Plt Count 197 10^3/cmm 10^3 /cmm (130-400) MPV 10.4 fL fL (7.4-10.4) Neut % (Auto) 65.0 % % Lymph % (Auto) 22.1 % % Sampson % (Auto) 8.9 % % Eos % (Auto) 2.7 % % Baso % (Auto) 0.9 % % Neut # (Auto) 6.17 10^3/uL 10^3 /uL (1.8-7.7) Lymph # (Auto) 2.1 10^3/uL 10^3/ uL (0.8-4.8) Sampson # (Auto) 0.9 10^3/uL 10^3/ uL (0.2-0.9) Eos # (Auto) 0.3 10^3/uL 10^3/ uL (0.0-0.8) Baso # (Auto) 0.1 10^3/uL 10^3/ uL (0.0-0.1) Nucleated RBC % (a uto) 0 % % Nucleated RBCs # 0.0 /100WBC /100W BC Sodium 138 mmol/L mmol/L (136-145) Potassium 3.9 mmol/L mmol/L (3.5-5.1) Chloride 103 mmol/L mmol/L (98-107) Carbon Dioxide 21 mmol/L L mmol/ L (22-29) Anion Gap 17.9 (5-19) BUN 11 mg/dL mg/dL (6-20) Creatinine 1.0 mg/dL H mg/dL (0.5-0.9) GFR Calculation 58.0 mL/min L mL/ min (90-130) Glucose 95 mg/dL mg/dL (65-115) Calculated Osmolal ity 285 mOsm/kg mOsm/ kg (285-295) Calcium 8.5 mg/dL mg/dL (8.5-10.5) Total Bilirubin 0.2 mg/dL mg/dL (0.15-1.2) AST 7 U/L U/L (0-32) ALT 6 U/L U/L (0-33) Alkaline Phosphata se 124 IU/L H IU/L (35-105) Total Protein 6.3 g/dL L g/dL (6.6-8.7) Albumin 4.0 g/dL g/dL (3.5-5.2) Globulin 2.3 g/dL g/dL (1.3-4.6) Urine Color Yellow (Yellow) Urine Appearance Clear (CLEAR) Urine pH 5 (5-7) Ur Specific Gravit y 1.015 (1.005-1.030) Urine Protein Neg (Negative) Urine Glucose (UA) Norm (Normal) Urine Ketones Negative (Negative) Urine Blood Neg (Negative) Urine Nitrate Negative (Negative) Urine Bilirubin Neg (Negative) Urine Urobilinogen Norm mg/dL mg/dL (Negative) Ur Leukocyte Stephanie ase Negative (Negative) Discharge Plan Discharge Patient Disposition: Home Clinical Impression: Abdominal pain, chronic, epigastric Condition: Stable Prescriptions: Changed pantoprazole 40 mg tablet,delayed release (DR/EC) 40 mg PO BID Qty: 90 RF: 1 No Action azithromycin 250 mg tablet See Rx Instructions PO .COMPLEX Qty: 6 RF: 0 ondansetron HCl [Zofran] 4 mg tablet 4 mg PO QID PRN (Reason: nausea and vomiting) Qty: 14 RF: 0 ciprofloxacin-dexamethasone [Ciprodex] 0.3-0.1 % drops,suspension 4 drp otic (ear) Q12H 7 Days Qty: 7.5 RF: 0 nystatin [Nystop] 100,000 unit/gram powder 1 applic topical BID Qty: 60 RF: 0 fluticasone propionate 50 mcg/actuation spray,suspension See Rx Instructions .ROUTE .COMPLEX Qty: 48 RF: 0 hydroxyzine pamoate 50 mg capsule See Rx Instructions .ROUTE .COMPLEX 30 Days Qty: 150 RF: 1 lamotrigine 200 mg tablet 200 mg PO DAILY Qty: 30 RF: 1 trazodone 300 mg tablet 300 mg PO BEDTIME Qty: 30 RF: 1 Breo Ellipta 100-25 mcg/dose blister with device 1 inh inhalation DAILY@0600 RF: 0 acetaminophen [Tylenol Arthritis Pain] 650 mg Tablet Extended Release 1,000 mg PO Q6H PRN (Reason: Pain) RF: 0 albuterol sulfate 90 mcg/actuation HFA aerosol inhaler 2 puff inhalation Q6H PRN (Reason: shortness of breath or wheezing) RF: 0 ipratropium-albuterol 0.5 mg-3 mg(2.5 mg base)/3 mL solution for nebulization 3 ml inhalation Q4H PRN (Reason: Shortness Of Breath Or Wheezing) RF: 0 nitrofurantoin monohyd/m-cryst 100 mg capsule 100 mg PO BID RF: 0 citalopram 20 mg Tablet 40 mg PO DAILY 30 Days Qty: 60 RF: 1 dicyclomine 20 mg tablet 20 mg PO TID PRN (Reason: abd pain) Qty: 30 RF: 0 Discharge Orders: Discharge ED (Routine); Ordered 06/03/21 Ordered By: Bryant Whitley Referrals: Dara Tavera, [employer] SALESPERSON [Primary Care Provider] - Discharge Diet: Clear Liquid Discharge Activity: Increase activity as tolerated Patient Instructions: Abdominal Pain (ED), Opioid Safety Activity Restrictions/Additional Instructions: Clear liquid after 24 to 48 hours. Increase pantoprazole to 40 mg twice daily follow-up with primary care doctor the next 4 to 5 days. Coding Level of Care Code ED Hat Finishing Materials Preparer for Chg Fwd Exam Comprehensive
[2021-06-03 12:56] VITALS: BP 120/76; PULSE 70; RESP 18; TEMP 36.6; O2SAT 97; BMI 33.3
[2021-06-03 13:36] LABS: Basophils # 0.1 10^3/uL (0.0-0.1); Basophils % 0.9 %; Eosinophils # 0.3 10^3/uL (0.0-0.8); Eosinophils % 2.7 %; Hematocrit 42.5 % (37.0-47.0); Hemoglobin 14.3 g/dL (11.5-15.3); Lymphocytes # 2.1 10^3/uL (0.8-4.8); Lymphocytes % 22.1 %; Mean Corpuscular HGB Conc 33.6 g/dL (30.0-36.0); Mean Corpuscular Hemoglobin 31.9 pg (28.0-34.0); Mean Corpuscular Volume 94.9 fl (81-99); Mean Platelet Volume 10.4 fL (7.4-10.4); Monocytes # 0.9 10^3/uL (0.2-0.9); Monocytes % 8.9 %; Neutrophils # 6.17 10^3/uL (1.8-7.7); Nucleated Red Blood Cells % 0 %; Platelet Count 197 10^3/cmm (130-400); Red Blood Count 4.48 10^6/uL (4.1-5.3); Red Cell Distribution Width 14.5 % (12.1-15.1); White Blood Count 9.5 10^3/uL (4.0-10.0)
[2021-06-03] MEDS: sodium chloride 0.9% 500 ML 999 ML IV (13:36)
[2021-06-03] MEDS: ondansetron 2 mg/ML SDV 2 mL 4 MG IVP (13:37)
[2021-06-03 13:59] LABS: Alanine Aminotransferase 6 U/L (0-33); Alkaline Phosphatase 124 IU/L (35-105); Anion Gap 17.9 (5-19); Aspartate Amino Transferase 7 U/L (0-32); Blood Urea Nitrogen 11 mg/dL (6-20); Calcium 8.5 mg/dL (8.5-10.5); Carbon Dioxide 21 mmol/L (22-29); Chloride 103 mmol/L (98-107); Globulin 2.3 g/dL (1.3-4.6); Glucose 95 mg/dL (65-115); Osmolality Calculated 285 mOsm/kg (285-295); Potassium 3.9 mmol/L (3.5-5.1); Sodium 138 mmol/L (136-145); Total Bilirubin 0.2 mg/dL (0.15-1.2); Total Protein 6.3 g/dL (6.6-8.7)
[2021-06-03] MEDS: acetaminophen 500 mg Tablet 1000 MG PO (14:29)
[2021-06-03 14:30] LABS: Add Urine Microscopic? NO; Charge for UA Resulting for Rev
[2021-06-03 14:31] LABS: Specific Gravity, Urine 1.015 (1.005-1.030); Urine Appearance Clear (CLEAR); Urine Color Yellow (Yellow); pH Urine 5 (5-7)
[2021-06-03 14:32] LABS: Bilirubin Urine Neg (Negative); Blood Urine Neg (Negative); Glucose Urine UA Norm (Normal); Ketones Urine Negative (Negative); Leukocyte Esterase Urine Negative (Negative); Nitrate Urine Negative (Negative); Protein Urine Neg (Negative); Urobilinogen Urine Norm (Negative)
== END 2021-06-03 15:39 | disposition home or self-care (01) ==
PROVIDERS: Emergency Medicine; Emergency Provider Family Medicine; PCP Registered Nurse
DX: G89.29 Other chronic pain (principal); R10.13 Epigastric pain; J44.9 Chronic obstructive pulmonary disease, unspecified; Z77.22 Contact with and (suspected) exposure to environmental tobacco smoke (acute) (chronic)
CPT/HCPCS: 80053; 81003; 85025; 96374; 99283; J2405; J7040

== ENCOUNTER 2021-06-06 22:14 | Emergency (ER) | payer MEDICARE, MEDICAID, SELFPAY ==
[2021-06-06 22:27] VITALS: BP 121/46; PULSE 77; RESP 18; O2SAT 95; BMI 33.3
[2021-06-06 23:49] LABS: Basophils # 0.1 10^3/uL (0.0-0.1); Basophils % 0.7 %; Eosinophils # 0.3 10^3/uL (0.0-0.8); Eosinophils % 2.7 %; Hematocrit 41.4 % (37.0-47.0); Hemoglobin 14.1 g/dL (11.5-15.3); Lymphocytes % 17.8 %; Mean Corpuscular HGB Conc 34.1 g/dL (30.0-36.0); Mean Corpuscular Hemoglobin 32.1 pg (28.0-34.0); Mean Corpuscular Volume 94.3 fl (81-99); Monocytes # 0.9 10^3/uL (0.2-0.9); Monocytes % 8.3 %; Neutrophils # 7.98 10^3/uL (1.8-7.7); Neutrophils % 70.2 %; Nucleated Red Blood Cells % 0 %; Platelet Count 204 10^3/cmm (130-400); Red Blood Count 4.39 10^6/uL (4.1-5.3); Red Cell Distribution Width 14.3 % (12.1-15.1); White Blood Count 11.4 10^3/uL (4.0-10.0)
[2021-06-07 00:05] LABS: Alanine Aminotransferase 6 U/L (0-33); Albumin Level 3.8 g/dL (3.5-5.2); Alkaline Phosphatase 129 IU/L (35-105); Anion Gap 18.5 (5-19); Aspartate Amino Transferase 7 U/L (0-32); Blood Urea Nitrogen 16 mg/dL (6-20); C Reactive Protein 9.1 mg/L (0.0-4.9); Calcium 8.7 mg/dL (8.5-10.5); Carbon Dioxide 19 mmol/L (22-29); Chloride 104 mmol/L (98-107); Globulin 2.2 g/dL (1.3-4.6); Glucose 99 mg/dL (65-115); Lipase 24 U/L (13-60); Osmolality Calculated 287 mOsm/kg (285-295); Potassium 3.5 mmol/L (3.5-5.1); Sodium 138 mmol/L (136-145); Total Bilirubin 0.2 mg/dL (0.15-1.2)
--- NOTE | 2021-06-07 00:25 | ED_ITS ---
HPI - Abdominal Pain General: Chief Complaint: Abdominal Pain Stated Complaint: ABD PAIN Time Seen by Provider: 06/06/21 22:29 History of Present Illness: HPI narrative: 55-year-old female well-known to the emergency room. She presents with periumbilical and epigastric abdominal pain with vomiting times the past 2 days. She has had intermittent diarrhea as well. This is a chronic problem for this patient, and she has been seen several times in the ER for this. She has had multiple imaging sessions which have not proven helpful. MD elicited complaint: abdominal pain Pertinent past history: other Onset (ago): day(s) Pain Consistency: intermittent Location: Epigastric and Periumbilical Severity: severe Quality: cramping and stabbing Radiation: none Migration to: no migration Exacerbating factors: nothing Relieving factors: nothing Associated Symptoms: Reports diarrhea, nausea and vomiting; Denies constipation, dysuria, fever(s) and hematuria Related Data: Date of Last Menstrual Period: 06/19/95 Review of Systems Const: Denies: fever(s) Card: Denies: chest pain or palpitations Resp: Denies: dyspnea, productive cough or non-productive cough GI: Reports: nausea, vomiting and diarrhea; Denies: constipation : Denies: dysuria or hematuria PFSH ED PFSH: Medical History Bladder stone Borderline personality disorder Chronic anxiety Chronic back pain greater than 3 months duration Chronic gastritis without bleeding COPD (chronic obstructive pulmonary disease) Cystitis cystica Dysphagia Esophageal stricture Foreign body in bladder GERD without esophagitis Neurogenic bladder Psychiatric care Restrictive lung disease Schizoaffective disorder, bipolar type Tardive dyskinesia Urgency incontinence Surgical History H/O bladder repair surgery MESH REPAIR H/O colonoscopy with polypectomy H/O esophagogastroduodenoscopy (09/21/20) H/O: hysterectomy History of appendectomy History of breast biopsy History of foot surgery sx in 2009. Screws placed by Dr. Don. History of ureter stent Hx of cholecystectomy S/P bronchoscopy with biopsy Family History Mother No problems noted. Father No problems noted. Other Asthma Cancer Diabetes Heart disease Social History Quit status (tobacco): considering quitting Second hand smoke exposure: Yes Smoking risk assessment/counseling performed?: No Alcohol intake: never Counseling given: No Counseling given: No Lives independently: Yes Household members: spouse Marital status: Number of children: 3 Current occupational status: disabled History of recent travel: No Current gender identity: Female Female Reproductive History: Date of last menstrual period: 06/19/95 Physical Exam Const: COMMON NORMALS: patient oriented x3 and alert GENERAL APPEARANCE: cooperative HENMT: COMMON NORMALS: normocephalic HEAD & SCALP: normocephalic Eye: COMMON NORMALS: Equal, round and reactive pupils present and EOMs intact bilaterally PUPIL: Yes Equal, round and reactive pupils present Chest: COMMONS NORMALS: normal inspection of the chest Resp: COMMON NORMALS: normal respiratory effort and No use of accessory muscles AUSCULTATION: wheezes (bilateral (chronic)) Cardio: COMMON NORMALS: regular rate and regular rhythm RATE: regular rate RHYTHM: regular rhythm GI: COMMON NORMALS: Normal to inspection, nondistended, normoactive bowel sounds present and Soft to palpation PALPATION: Yes Soft to palpation and Yes Tenderness to palpation present (GI) (epigastric and periumbilical) Neuro: COMMON NORMALS: patient oriented x3 SENSORIUM/ORIENTATION: Yes alert Course Vital Signs: Vital signs: Vital Signs Pulse Rate 94 06/07/21 00:30 Respiratory Rate 18 06/07/21 00:33 Blood Pressure 127/44 06/07/21 00:30 Pulse Oximetry 93 06/07/21 00:33 MDM - Abdominal Pain MDM Narrative: Medical decision making narrative: 55-year-old female with history of chronic pain/belly pain from IBS. She presents with periumbilical and epigastric pain. Her white blood cell count is 11.4 with no left shift. Her CRP is minimally elevated at 9. Bicarbonate level is 19. Her creatinine is 1. Bilirubin and lipase are normal. She is improved after GI cocktail, morphine, and Zofran here. She will be discharged. Lab Data: Labs: Lab Results 06/06/21 06/06/21 06/07/21 23:41 23:41 00:25 WBC 11.4 10^3/uL H 10 ^3/uL (4.0-10.0) RBC 4.39 10^6/uL 10^6 /uL (4.1-5.3) Hgb 14.1 g/dL g/dL (11.5-15.3) Hct 41.4 % % (37.0-47.0) MCV 94.3 fl fl (81-99) MCH 32.1 pg pg (28.0-34.0) MCHC 34.1 g/dL g/dL (30.0-36.0) RDW 14.3 % % (12.1-15.1) Plt Count 204 10^3/cmm 10^3 /cmm (130-400) MPV 11.0 fL H fL (7.4-10.4) Neut % (Auto) 70.2 % % Lymph % (Auto) 17.8 % % [place] % (Auto) 8.3 % % Eos % (Auto) 2.7 % % Baso % (Auto) 0.7 % % Neut # (Auto) 7.98 10^3/uL H 10 ^3/uL (1.8-7.7) Lymph # (Auto) 2.0 10^3/uL 10^3/ uL (0.8-4.8) [place] # (Auto) 0.9 10^3/uL 10^3/ uL (0.2-0.9) Eos # (Auto) 0.3 10^3/uL 10^3/ uL (0.0-0.8) Baso # (Auto) 0.1 10^3/uL 10^3/ uL (0.0-0.1) Nucleated RBC % (a uto) 0 % % Nucleated RBCs # 0.0 /100WBC /100W BC Sodium 138 mmol/L mmol/L (136-145) Potassium 3.5 mmol/L mmol/L (3.5-5.1) Chloride 104 mmol/L mmol/L (98-107) Carbon Dioxide 19 mmol/L L mmol/ L (22-29) Anion Gap 18.5 (5-19) BUN 16 mg/dL mg/dL (6-20) Creatinine 1.0 mg/dL H mg/dL (0.5-0.9) GFR Calculation 58.0 mL/min L mL/ min (90-130) Glucose 99 mg/dL mg/dL (65-115) Calculated Osmolal ity 287 mOsm/kg mOsm/ kg (285-295) Calcium 8.7 mg/dL mg/dL (8.5-10.5) Total Bilirubin 0.2 mg/dL mg/dL (0.15-1.2) AST 7 U/L U/L (0-32) ALT 6 U/L U/L (0-33) Alkaline Phosphata se 129 IU/L H IU/L (35-105) C-Reactive Protein 9.1 mg/L H mg/L (0.0-4.9) Total Protein 6.0 g/dL L g/dL (6.6-8.7) Albumin 3.8 g/dL g/dL (3.5-5.2) Globulin 2.2 g/dL g/dL (1.3-4.6) Lipase 24 U/L U/L (13-60) Urine Color Yellow (Yellow) Urine Appearance Clear (CLEAR) Urine pH 5 (5-7) Ur Specific Gravit y 1.025 (1.005-1.030) Urine Protein Neg (Negative) Urine Glucose (UA) Norm (Normal) Urine Ketones Negative (Negative) Urine Blood Neg (Negative) Urine Nitrate Negative (Negative) Urine Bilirubin Neg (Negative) Urine Urobilinogen Norm mg/dL mg/dL (Negative) Ur Leukocyte Stephanie ase Trace H (Negative) Amorphous Sediment Not Reportable Discharge Plan Discharge Patient Disposition: Home Clinical Impression: Abdominal pain, chronic, epigastric Condition: Stable Prescriptions: New dicyclomine 20 mg tablet 20 mg PO TID PRN (Reason: abd pain) Qty: 30 RF: 0 No Action azithromycin 250 mg tablet See Rx Instructions PO .COMPLEX Qty: 6 RF: 0 ondansetron HCl [Zofran] 4 mg tablet 4 mg PO QID PRN (Reason: nausea and vomiting) Qty: 14 RF: 0 ciprofloxacin-dexamethasone [Ciprodex] 0.3-0.1 % drops,suspension 4 drp otic (ear) Q12H 7 Days Qty: 7.5 RF: 0 nystatin [Nystop] 100,000 unit/gram powder 1 applic topical BID Qty: 60 RF: 0 fluticasone propionate 50 mcg/actuation spray,suspension See Rx Instructions .ROUTE .COMPLEX Qty: 48 RF: 0 hydroxyzine pamoate 50 mg capsule See Rx Instructions .ROUTE .COMPLEX 30 Days Qty: 150 RF: 1 lamotrigine 200 mg tablet 200 mg PO DAILY Qty: 30 RF: 1 trazodone 300 mg tablet 300 mg PO BEDTIME Qty: 30 RF: 1 Breo Ellipta 100-25 mcg/dose blister with device 1 inh inhalation DAILY@0600 RF: 0 pantoprazole 40 mg tablet,delayed release (DR/EC) 40 mg PO BID Qty: 90 RF: 1 acetaminophen [Tylenol Arthritis Pain] 650 mg Tablet Extended Release 1,000 mg PO Q6H PRN (Reason: Pain) RF: 0 albuterol sulfate 90 mcg/actuation HFA aerosol inhaler 2 puff inhalation Q6H PRN (Reason: shortness of breath or wheezing) RF: 0 ipratropium-albuterol 0.5 mg-3 mg(2.5 mg base)/3 mL solution for nebulization 3 ml inhalation Q4H PRN (Reason: Shortness Of Breath Or Wheezing) RF: 0 nitrofurantoin monohyd/m-cryst 100 mg capsule 100 mg PO BID RF: 0 citalopram 20 mg Tablet 40 mg PO DAILY 30 Days Qty: 60 RF: 1 Discharge Orders: Discharge ED (Routine); Ordered 06/07/21 Ordered By: Chivo Deleon Referrals: Dara Tavera FNP [Primary Care Provider] - 1-3 days Patient Instructions: Abdominal Pain (ED) Activity Restrictions/Additional Instructions: Return for fever greater than 100, worsening belly pain despite treatment, vom iting liquids or medications despite treatment, other concerning symptoms. Follow-up with your primary doctor. 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
[2021-06-07 00:30] VITALS: BP 127/44; PULSE 94; RESP 18; O2SAT 94
[2021-06-07 00:33] VITALS: RESP 18; O2SAT 93
[2021-06-07] MEDS: morphine 4 mg/mL SDV 1 mL IVP ×2 (00:33→01:44)
[2021-06-07] MEDS: ondansetron 2 mg/ML SDV 2 mL 4 MG IVP (00:33)
[2021-06-07 00:39] LABS: Add Urine Microscopic? YES; Bilirubin Urine Neg (Negative); Blood Urine Neg (Negative); Glucose Urine UA Norm (Normal); Ketones Urine Negative (Negative); Leukocyte Esterase Urine Trace (Negative); Nitrate Urine Negative (Negative); Protein Urine Neg (Negative); Specific Gravity, Urine 1.025 (1.005-1.030); Urine Appearance Clear (CLEAR); Urine Color Yellow (Yellow); Urobilinogen Urine Norm (Negative); pH Urine 5 (5-7)
[2021-06-07 00:47] LABS: Add Urine Culture? No; Bacteria Urine 2+ /hpf; Mucus Urine 4+ /hpf; RBC Urine 0-4 /hpf (0-2); Squamous Epithelial Cell Urine 15-25 /hpf (0-5); WBC Urine 25-40 /hpf (0-5)
[2021-06-07 01:44] VITALS: RESP 19
[2021-06-07 01:45] VITALS: BP 103/66; PULSE 73; O2SAT 94
== END 2021-06-07 01:47 | disposition home or self-care (01) ==
PROVIDERS: Emergency Provider Emergency Medicine; PCP Registered Nurse
DX: R10.13 Epigastric pain (principal); F17.210 Nicotine dependence, cigarettes, uncomplicated; K58.0 Irritable bowel syndrome with diarrhea
CPT/HCPCS: 80053; 81001; 83690; 85025; 86140; 96374; 96375; 96376; 99284; J2270; J2405

== ENCOUNTER 2021-06-15 00:29 | Emergency (ER) | payer MEDICARE, MEDICAID, SELFPAY ==
[2021-06-15 00:34] VITALS: BP 103/63; PULSE 66; RESP 18; TEMP 36.6; O2SAT 97; BMI 33.3
--- NOTE | 2021-06-15 02:44 | W.ED.ABDPA2 ---
HPI - Abdominal Pain General: Chief Complaint: Abdominal Pain Stated Complaint: ABD PAIN/N/V Time Seen by Provider: 06/15/21 01:19 Source: patient Mode of arrival: ambulatory Limitations: no limitations History of Present Illness: HPI narrative: 55-year-old female who is very well-known to the ER has history of chronic abdominal pain states been having abdominal pain since before [place] diffuse in nature she rates it a 5 out of 10. She denies any worsening proving factors. Patient denies any diarrhea she has had some nausea she denies any fevers denies any chest pain. Associated Symptoms: Denies chills, dysuria and fever(s) Related Data: Date of Last Menstrual Period: 06/19/95 Review of Systems Const: Denies: fever(s), chills, body aches or change in appetite Eyes: Denies: blurry vision or eye discomfort ENMT: Denies: throat pain or dental pain Card: Denies: chest pain Resp: Denies: dyspnea GI: Reports: abdominal pain : Denies: dysuria Musc: Denies: neck pain or back pain Skin/Breast: Denies: rash Neuro: Denies: headache(s) Psych: Denies: depression [place]/Lymph: Denies: easy bruising All/Imm: Denies: urticaria PFSH ED PFSH: Medical History Bladder stone Borderline personality disorder Chronic anxiety Chronic back pain greater than 3 months duration Chronic gastritis without bleeding COPD (chronic obstructive pulmonary disease) Cystitis cystica Dysphagia Esophageal stricture Foreign body in bladder GERD without esophagitis Neurogenic bladder Psychiatric care Restrictive lung disease Schizoaffective disorder, bipolar type Tardive dyskinesia Urgency incontinence Surgical History H/O bladder repair surgery MESH REPAIR H/O colonoscopy with polypectomy H/O esophagogastroduodenoscopy (09/21/20) H/O: hysterectomy History of appendectomy History of breast biopsy History of foot surgery sx in 2009. Screws placed by Dr. Don. History of ureter stent Hx of cholecystectomy S/P bronchoscopy with biopsy Family History Mother No problems noted. Father No problems noted. Other Asthma Cancer Diabetes Heart disease Social History Quit status (tobacco): considering quitting Second hand smoke exposure: Yes Smoking risk assessment/counseling performed?: No Alcohol intake: never Counseling given: No Counseling given: No Lives independently: Yes Household members: spouse Marital status: Number of children: 3 Current occupational status: disabled History of recent travel: No Current gender identity: Female Female Reproductive History: Date of last menstrual period: 06/19/95 Physical Exam Const: COMMON NORMALS: no acute distress, patient oriented x3 and healthy appearing HENMT: COMMON NORMALS: normocephalic and atraumatic HEAD & SCALP: normocephalic and atraumatic Eye: COMMON NORMALS: Equal, round and reactive pupils present and EOMs intact bilaterally PUPIL: Yes Equal, round and reactive pupils present Neck/C-Spine: COMMON NORMALS: full ROM and supple Chest: COMMONS NORMALS: normal inspection of the chest and normal palpation of entire chest wall Resp: COMMON NORMALS: normal respiratory effort, No retractions, No use of accessory muscles and clear to auscultation bilaterally AUSCULTATION: clear to auscultation bilaterally Cardio: COMMON NORMALS: regular rate, regular rhythm and No murmurs present (Cardio) RATE: regular rate RHYTHM: regular rhythm GI: COMMON NORMALS: Normal to inspection, nondistended, normoactive bowel sounds present, Soft to palpation, non-tender and no masses PALPATION: Yes Soft to palpation Extremity: COMMON NORMALS: normal to inspection and full ROM Neuro: COMMON NORMALS: patient oriented x3, moves all extremities and no focal motor deficits Psych: COMMON NORMALS: mental status grossly normal, Normal thought process present and cooperative THOUGHT PROCESS: Normal thought process present Skin: COMMON NORMALS: no rashes or lesions noted and no wounds GENERAL SKIN EXAM: no rashes or lesions noted Course Vital Signs: Vital signs: Vital Signs Temperature 97.8 F 06/15/21 03:09 Pulse Rate 62 06/15/21 03:09 Respiratory Rate 18 06/15/21 03:09 Blood Pressure 101/53 06/15/21 03:09 Pulse Oximetry 97 06/15/21 03:09 MDM - Abdominal Pain MDM Narrative: Medical decision making narrative: Patient presents here with abdominal pain that is chronic in nature exam here is benign blood work is normal no signs of acute surgical abdomen she is stable for discharge she is to follow-up with PCP and return if worsening. Lab Data: Labs: Lab Results 06/15/21 06/15/21 03:02 03:02 WBC 9.0 10^3/uL 10^3/ uL (4.0-10.0) RBC 4.59 10^6/uL 10^6 /uL (4.1-5.3) Hgb 14.7 g/dL g/dL (11.5-15.3) Hct 43.8 % % (37.0-47.0) MCV 95.4 fl fl (81-99) MCH 32.0 pg pg (28.0-34.0) MCHC 33.6 g/dL g/dL (30.0-36.0) RDW 14.2 % % (12.1-15.1) Plt Count 260 10^3/cmm 10^3 /cmm (130-400) MPV 11.6 fL H fL (7.4-10.4) Neut % (Auto) 72.2 % % Lymph % (Auto) 18.1 % % [place] % (Auto) 5.6 % % Eos % (Auto) 3.0 % % Baso % (Auto) 0.8 % % Neut # (Auto) 6.48 10^3/uL 10^3 /uL (1.8-7.7) Lymph # (Auto) 1.6 10^3/uL 10^3/ uL (0.8-4.8) [place] # (Auto) 0.5 10^3/uL 10^3/ uL (0.2-0.9) Eos # (Auto) 0.3 10^3/uL 10^3/ uL (0.0-0.8) Baso # (Auto) 0.1 10^3/uL 10^3/ uL (0.0-0.1) Nucleated RBC % (a uto) 0 % % Nucleated RBCs # 0.0 /100WBC /100W BC Sodium 141 mmol/L mmol/L (136-145) Potassium 4.8 mmol/L mmol/L (3.5-5.1) Chloride 106 mmol/L mmol/L (98-107) Carbon Dioxide 22 mmol/L mmol/L (22-29) Anion Gap 17.8 (5-19) BUN 14 mg/dL mg/dL (6-20) Creatinine 0.9 mg/dL mg/dL (0.5-0.9) GFR Calculation 65.5 mL/min L mL/ min (90-130) Glucose 91 mg/dL mg/dL (65-115) Calculated Osmolal ity 292 mOsm/kg mOsm/ kg (285-295) Calcium 8.9 mg/dL mg/dL (8.5-10.5) Total Bilirubin 0.3 mg/dL mg/dL (0.15-1.2) AST 12 U/L U/L (0-32) ALT 6 U/L U/L (0-33) Alkaline Phosphata se 138 IU/L H IU/L (35-105) Total Protein 6.9 g/dL g/dL (6.6-8.7) Albumin 4.1 g/dL g/dL (3.5-5.2) Globulin 2.8 g/dL g/dL (1.3-4.6) Lipase 22 U/L U/L (13-60) Discharge Plan Discharge Patient Disposition: Home Clinical Impression: Abdominal pain Qualifiers: Abdominal location: generalized Qualified Code(s): R10.84 - Generalized abdominal pain Condition: Stable Prescriptions: No Action azithromycin 250 mg tablet See Rx Instructions PO .COMPLEX Qty: 6 RF: 0 ondansetron HCl [Zofran] 4 mg tablet 4 mg PO QID PRN (Reason: nausea and vomiting) Qty: 14 RF: 0 ciprofloxacin-dexamethasone [Ciprodex] 0.3-0.1 % drops,suspension 4 drp otic (ear) Q12H 7 Days Qty: 7.5 RF: 0 nystatin [Nystop] 100,000 unit/gram powder 1 applic topical BID Qty: 60 RF: 0 fluticasone propionate 50 mcg/actuation spray,suspension See Rx Instructions .ROUTE .COMPLEX Qty: 48 RF: 0 hydroxyzine pamoate 50 mg capsule See Rx Instructions .ROUTE .COMPLEX 30 Days Qty: 150 RF: 1 lamotrigine 200 mg tablet 200 mg PO DAILY Qty: 30 RF: 1 trazodone 300 mg tablet 300 mg PO BEDTIME Qty: 30 RF: 1 Breo Ellipta 100-25 mcg/dose blister with device 1 inh inhalation DAILY@0600 RF: 0 pantoprazole 40 mg tablet,delayed release (DR/EC) 40 mg PO BID Qty: 90 RF: 1 acetaminophen [Tylenol Arthritis Pain] 650 mg Tablet Extended Release 1,000 mg PO Q6H PRN (Reason: Pain) RF: 0 albuterol sulfate 90 mcg/actuation HFA aerosol inhaler 2 puff inhalation Q6H PRN (Reason: shortness of breath or wheezing) RF: 0 ipratropium-albuterol 0.5 mg-3 mg(2.5 mg base)/3 mL solution for nebulization 3 ml inhalation Q4H PRN (Reason: Shortness Of Breath Or Wheezing) RF: 0 nitrofurantoin monohyd/m-cryst 100 mg capsule 100 mg PO BID RF: 0 citalopram 20 mg Tablet 40 mg PO DAILY 30 Days Qty: 60 RF: 1 dicyclomine 20 mg tablet 20 mg PO TID PRN (Reason: abd pain) Qty: 30 RF: 0 Discharge Orders: Discharge ED (Routine); Ordered 06/15/21 Ordered By: Damien Urbina Referrals: Dara Tavera FNP [Primary Care Provider] - 1-3 days Discharge Diet: Advance as tolerated Discharge Activity: Resume usual activity Patient Instructions: Abdominal Pain (ED) Coding Level of Care Code ED [employer] 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
[2021-06-15] MEDS: diphenhydrAMINE 50 mg/mL SDV 1mL IM (03:04)
[2021-06-15] MEDS: ondansetron 2 mg/ML SDV 2 mL 4 MG IM (03:05)
[2021-06-15 03:07] LABS: Basophils # 0.1 10^3/uL (0.0-0.1); Basophils % 0.8 %; Eosinophils # 0.3 10^3/uL (0.0-0.8); Hematocrit 43.8 % (37.0-47.0); Hemoglobin 14.7 g/dL (11.5-15.3); Lymphocytes # 1.6 10^3/uL (0.8-4.8); Lymphocytes % 18.1 %; Mean Corpuscular HGB Conc 33.6 g/dL (30.0-36.0); Mean Corpuscular Volume 95.4 fl (81-99); Mean Platelet Volume 11.6 fL (7.4-10.4); Monocytes # 0.5 10^3/uL (0.2-0.9); Monocytes % 5.6 %; Neutrophils # 6.48 10^3/uL (1.8-7.7); Neutrophils % 72.2 %; Nucleated Red Blood Cells % 0 %; Platelet Count 260 10^3/cmm (130-400); Red Blood Count 4.59 10^6/uL (4.1-5.3); Red Cell Distribution Width 14.2 % (12.1-15.1)
[2021-06-15 03:09] VITALS: BP 101/53; PULSE 62; RESP 18; TEMP 36.6; O2SAT 97
[2021-06-15 03:27] LABS: Albumin Level 4.1 g/dL (3.5-5.2); Alkaline Phosphatase 138 IU/L (35-105); Blood Urea Nitrogen 14 mg/dL (6-20); Calcium 8.9 mg/dL (8.5-10.5); Carbon Dioxide 22 mmol/L (22-29); Chloride 106 mmol/L (98-107); Globulin 2.8 g/dL (1.3-4.6); Glomerular Filtration Rate 65.5 mL/min (90-130); Glucose 91 mg/dL (65-115); Lipase 22 U/L (13-60); Osmolality Calculated 292 mOsm/kg (285-295); Sodium 141 mmol/L (136-145); Total Bilirubin 0.3 mg/dL (0.15-1.2); Total Protein 6.9 g/dL (6.6-8.7)
[2021-06-15 03:28] LABS: Anion Gap 17.8 (5-19); Aspartate Amino Transferase 12 U/L (0-32); Potassium 4.8 mmol/L (3.5-5.1)
[2021-06-15 03:29] LABS: Alanine Aminotransferase 6 U/L (0-33)
[2021-06-15] MEDS: HYDROcodone-acetaminophen 5-325 mg Tablet 1 TAB PO (04:13)
[2021-06-15 04:25] VITALS: BP 118/51; PULSE 61; RESP 16; O2SAT 99
== END 2021-06-15 04:27 | disposition home or self-care (01) ==
PROVIDERS: Emergency Provider Emergency Medicine; PCP Registered Nurse
DX: R10.84 Generalized abdominal pain (principal); J44.9 Chronic obstructive pulmonary disease, unspecified; Z77.22 Contact with and (suspected) exposure to environmental tobacco smoke (acute) (chronic); Z87.442 Personal history of urinary calculi
CPT/HCPCS: 36415; 80053; 83690; 85025; 96372; 99283; J1200; J2405

== ENCOUNTER → 2021-07-09 07:18 | Outpatient (BNVA) | payer MEDICARE, MEDICAID, SELFPAY | PROVIDERS: PCP Registered Nurse; Visit Provider Nurse Practitioner | DX: F60.3 Borderline personality disorder (principal); F25.0 Schizoaffective disorder, bipolar type; G24.01 Drug induced subacute dyskinesia | CPT/HCPCS: 99214 ==

== ENCOUNTER 2021-07-09 12:44 | Emergency (ER) | payer MEDICARE, MEDICAID, SELFPAY ==
[2021-07-09 12:55] VITALS: BP 111/75; PULSE 90; RESP 14; TEMP 36.4; O2SAT 98; BMI 32.8
--- NOTE | 2021-07-09 13:46 | PC.NURSE ---
REPORT TO ADRIEL HAUSER, PT IN BED ON BP AND SPO2
[2021-07-09 14:00] VITALS: BP 170/75; PULSE 62; RESP 16; O2SAT 99
--- NOTE | 2021-07-09 14:02 | ECG_ITS ---
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 Measurements Intervals [place] Rate: 63 P: 59 IA: 155 QRS: 41 QRSD: 98 T: 51 QT: 442 QTc: 455 Interpretive Statements SINUS RHYTHM Compared to ECG 05/02/2021 03:05:15 No significant changes Electronically Signed On 07-10-2021 14:12:23 SCRAP PILER by Kenan Sidhu M.D. [id number]
--- NOTE | 2021-07-09 15:22 | W.ED.NAVMDI ---
Documented by User: Anshul Ames MD 07/14/21 21:10 HPI - Nausea/Vomiting/Diarrhea General: Chief complaint: Nausea/Vomiting/Diarrhea Stated complaint: ABD PAIN, N/V Time Seen by Provider: 07/09/21 13:57 History of Present Illness: HPI Narrative: Ms. Wilhelm is a 55-year-old lady with complex past medical history including chronic abdominal pain who presents to the emergency department due to abdominal pain, nausea, vomiting. Symptoms were subacute in onset approximately 2 days ago without known specific provoking factor. She endorses abdominal pain which is a band across her abdomen at the umbilical level. There is no significant radiation to the chest or down into the groin. She does have associated nausea and vomiting as well as a few episodes of loose stools. She reports approximately 15 episodes of non bloody emesis and difficulty keeping down p.o. intake. Overall the course of symptoms has been worsening. Intensity is moderate. No other known specific exacerbating or alleviating factors. She reports this is worse than her chronic pain. MD elicited complaint: nausea, vomiting and abdominal pain Pertinent past history: other Onset (ago): day(s) Description of vomiting: food contents Description of diarrhea: semi-solid Associated nausea: Yes Associated abdominal pain: Yes Location of pain: Other Pain consistency: constant Severity: moderate Quality: cramping and aching Exacerbating factors: none Relieving factors: none Associated symtoms: Reports nausea Review of Systems General: Reports: 10 or more systems reviewed and unremarkable except in HPI and below GI: Reports: nausea PFSH ED PFSH: Medical History Bladder stone Borderline personality disorder Chronic anxiety Chronic back pain greater than 3 months duration Chronic gastritis without bleeding COPD (chronic obstructive pulmonary disease) Cystitis cystica Dysphagia Esophageal stricture Foreign body in bladder GERD without esophagitis Neurogenic bladder Psychiatric care Restrictive lung disease Schizoaffective disorder, bipolar type Tardive dyskinesia Urgency incontinence Surgical History H/O bladder repair surgery MESH REPAIR H/O colonoscopy with polypectomy H/O esophagogastroduodenoscopy (09/21/20) H/O: hysterectomy History of appendectomy History of breast biopsy History of foot surgery sx in 2009. Screws placed by Dr. Don. History of ureter stent Hx of cholecystectomy S/P bronchoscopy with biopsy Family History Mother No problems noted. Father No problems noted. Other Asthma Cancer Diabetes Heart disease Social History Quit status (tobacco): considering quitting Second hand smoke exposure: Yes Smoking risk assessment/counseling performed?: No Alcohol intake: never Counseling given: No Counseling given: No Lives independently: Yes Household members: spouse Marital status: Number of children: 3 Current occupational status: disabled History of recent travel: No Current gender identity: Female Female Reproductive History: Date of last menstrual period: 06/19/95 Physical Exam Const: COMMON NORMALS: alert GENERAL APPEARANCE: cooperative and ill appearing (Uncomfortable due to pain) HENMT: COMMON NORMALS: normocephalic and atraumatic HEAD & SCALP: normocephalic and atraumatic THROAT: posterior oropharynx normal Eye: COMMON NORMALS: conjunctivae normal CONJUNCTIVA: Yes conjunctivae normal SCLERA: sclerae normal Neck/C-Spine: COMMON NORMALS: supple GENERAL: Yes trachea midline Chest: OTHER: Coarse breath sounds throughout, likely related to smoking Resp: COMMON NORMALS: normal respiratory effort EFFORT & INSPECTION: Yes able to speak in complete sentences Cardio: COMMON NORMALS: regular rate and regular rhythm RATE: regular rate RHYTHM: regular rhythm GI: COMMON NORMALS: Soft to palpation PALPATION: Yes Soft to palpation, Yes Tenderness to palpation present (GI), No Guarding due to palpation present (GI) and No Rigid due to palpation Extremity: GENERAL: Yes normal exam except as noted and No edema Neuro: COMMON NORMALS: moves all extremities SENSORIUM/ORIENTATION: Yes alert and No Orientation impaired Psych: COMMON NORMALS: mental status grossly normal and Normal thought process present THOUGHT PROCESS: Normal thought process present Course ED course: - Patient was seen and evaluated by me at bedside - Patient placed on cardiac monitors, IV access obtained - Initial evaluation notable for exam as above, abdominal tenderness to palpation - Fluids, antiemetic, pain control ordered - Labs notable for mild leukocytosis. Metabolic panel with mild hyponatremia and minimally decreased bicarb. Lipase is normal. - Upon reevaluation of the patient she began expressing severe chest pain. She did have transient mild improvement in symptoms. Additional imaging, labs, and symptom treatment analgesia ordered. - Patient care handed off to overnight ED physician Dr. Deleon pending completion of ED evaluation. Note: Click bubbles or prepopulated cortes in note writing are used for assistance with data collection and billing and are inherently more limited than narrative and other text portions of this note. Please use narrative for additional clinical history and defer to narrative/free test for any case of contradictory information. If information appears in only free text or click bubble it should be considered present or absent as reported. Please contact note director underwriter sales for clarifications of clinical information or contradictory information. MDM is a brief summary, contradictory or erroneous seeming information should be clarified and full note should be reviewed. Vital Signs: Vital signs: Vital Signs Temperature 97.6 F 07/09/21 12:55 Pulse Rate 72 07/09/21 18:00 Respiratory Rate 18 07/09/21 18:19 Blood Pressure 160/90 07/09/21 18:00 Pulse Oximetry 99 07/09/21 18:00 MDM - Nausea/Vomiting/Diarrhea MDM Narrative Medical decision making narrative: 55-year-old lady with history of chronic abdominal pain presenting with nausea vomiting. Symptoms were treated and patient was evaluated for abdominal symptoms. While in the emergency department the patient began experiencing chest pain. Further evaluation ordered. Patient care handed off to overnight ED physician Dr. Deleon pending completion of ED evaluation. Medical Records Attestation: I reviewed the patient's medical records. Lab Data Attestation: I reviewed the patient's lab results. Result diagrams: 07/09/21 15:35 07/09/21 15:35 Labs: Lab Results 07/09/21 07/09/21 07/09/21 15:35 15:35 15:35 WBC 12.8 10^3/uL H 10^3/uL (4.0-10.0) RBC 4.61 10^6/uL 10^6/uL (4.1-5.3) Hgb 14.9 g/dL g/dL (11.5-15.3) Hct 44.3 % % (37.0-47.0) MCV 96.1 fl fl (81-99) MCH 32.3 pg pg (28.0-34.0) MCHC 33.6 g/dL g/dL (30.0-36.0) RDW 14.5 % % (12.1-15.1) Plt Count 202 10^3/cmm 10^3/cmm (130-400) MPV 10.1 fL fL (7.4-10.4) Neut % (Auto) 70.0 % % Lymph % (Auto) 19.8 % % Island % (Auto) 7.7 % % Eos % (Auto) 1.6 % % Baso % (Auto) 0.4 % % Neut # (Auto) 8.96 10^3/uL H 10^3/uL (1.8-7.7) Lymph # (Auto) 2.5 10^3/uL 10^3/uL (0.8-4.8) Island # (Auto) 1.0 10^3/uL H 10^3/uL (0.2-0.9) Eos # (Auto) 0.2 10^3/uL 10^3/uL (0.0-0.8) Baso # (Auto) 0.1 10^3/uL 10^3/uL (0.0-0.1) Nucleated RBC % (auto) 0 % % Nucleated RBCs # 0.0 /100WBC /100WBC Sodium 134 mmol/L L mmol/L (136-145) Potassium 3.9 mmol/L mmol/L (3.5-5.1) Chloride 102 mmol/L mmol/L (98-107) Carbon Dioxide 21 mmol/L L mmol/L (22-29) Anion Gap 14.9 (5-19) BUN 11 mg/dL mg/dL (6-20) Creatinine 0.9 mg/dL mg/dL (0.5-0.9) GFR Calculation 65.5 mL/min L mL/min (90-130) Glucose 97 mg/dL mg/dL (65-115) Calculated Osmolality 277 mOsm/kg L mOsm/kg (285-295) Calcium 8.6 mg/dL mg/dL (8.5-10.5) Magnesium 2.2 mg/dL mg/dL (1.7-2.3) Total Bilirubin 0.2 mg/dL mg/dL (0.15-1.2) AST 10 U/L U/L (0-32) ALT 9 U/L U/L (0-33) Alkaline Phosphatase 139 IU/L H IU/L (35-105) Troponin T Baseline 6 ng/L ng/L (0-10) Troponin T 120 Minute Delta Troponin T Total Protein 6.2 g/dL L g/dL (6.6-8.7) Albumin 3.8 g/dL g/dL (3.5-5.2) Globulin 2.4 g/dL g/dL (1.3-4.6) Lipase 18 U/L U/L (13-60) Procalcitonin Urine Color Urine Appearance Urine pH Ur Specific [place] Urine Protein Urine Glucose (UA) Urine Ketones Urine Blood Urine Nitrate Urine Bilirubin Urine Urobilinogen Ur Leukocyte Esterase SARS-CoV-2 Ag (Rapid) 07/09/21 07/09/21 07/09/21 15:35 18:30 19:10 WBC RBC Hgb Hct MCV MCH MCHC RDW Plt Count MPV Neut % (Auto) Lymph % (Auto) Island % (Auto) Eos % (Auto) Baso % (Auto) Neut # (Auto) Lymph # (Auto) Island # (Auto) Eos # (Auto) Baso # (Auto) Nucleated RBC % (auto) Nucleated RBCs # Sodium Potassium Chloride Carbon Dioxide Anion Gap BUN Creatinine GFR Calculation Glucose Calculated Osmolality Calcium Magnesium Total Bilirubin AST ALT Alkaline Phosphatase Troponin T Baseline Troponin T 120 Minute 6.00 ng/L ng/L (0-10) Delta Troponin T 0 ABS# ABS# (0-10) Total Protein Albumin Globulin Lipase Procalcitonin 0.03 ng/mL ng/mL (0-0.5) Urine Color Urine Appearance Urine pH Ur Specific [place] Urine Protein Urine Glucose (UA) Urine Ketones Urine Blood Urine Nitrate Urine Bilirubin Urine Urobilinogen Ur Leukocyte Esterase SARS-CoV-2 Ag (Rapid) Negative (Negative) 07/09/21 20:20 WBC RBC Hgb Hct MCV MCH MCHC RDW Plt Count MPV Neut % (Auto) Lymph % (Auto) Island % (Auto) Eos % (Auto) Baso % (Auto) Neut # (Auto) Lymph # (Auto) Island # (Auto) Eos # (Auto) Baso # (Auto) Nucleated RBC % (auto) Nucleated RBCs # Sodium Potassium Chloride Carbon Dioxide Anion Gap BUN Creatinine GFR Calculation Glucose Calculated Osmolality Calcium Magnesium Total Bilirubin AST ALT Alkaline Phosphatase Troponin T Baseline Troponin T 120 Minute Delta Troponin T Total Protein Albumin Globulin Lipase Procalcitonin Urine Color Yellow (Yellow) Urine Appearance Clear (CLEAR) Urine pH 5 (5-7) Ur Specific [place] 1.015 (1.005-1.030) Urine Protein Neg (Negative) Urine Glucose (UA) Norm (Normal) Urine Ketones Negative (Negative) Urine Blood Neg (Negative) Urine Nitrate Negative (Negative) Urine Bilirubin Neg (Negative) Urine Urobilinogen Norm mg/dL mg/dL (Negative) Ur Leukocyte Esterase Negative (Negative) SARS-CoV-2 Ag (Rapid) EKG Data^ EKG 1: Attestation: I personally reviewed and interpreted this EKG as follows: EKG interpretation date: 07/09/21 EKG interpretation time: 15:21 Ischemic changes: non-specific ST-T wave changes Interpretation: Twelve-lead EKG shows a regular rhythm at a rate of 87. [place] interval 180, QRS duration 94, QTc 401. Normal axis. Interpretation: Sinus rhythm with nonspecific ST segment abnormalities. Discharge Plan Discharge Patient Disposition: Home Clinical Impression: Acute exacerbation of chronic obstructive pulmonary disease Abdominal pain Qualifiers: Abdominal location: generalized Qualified Code(s): R10.84 - Generalized abdominal pain Condition: Stable Prescriptions: New prednisone 20 mg tablet 40 mg PO DAILY Qty: 10 0RF Zithromax 250 mg tablet See Rx Instructions .ROUTE .COMPLEX Qty: 6 0RF Rx Instructions: take 500 mg today (day 1), then 250 mg for 4 days (days 2-5) Zofran 4 mg tablet 4 mg PO Q6H PRN (Reason: nausea and vomiting) Qty: 10 0RF No Action hydroxyzine pamoate 50 mg capsule See Rx Instructions .ROUTE .COMPLEX 30 Days Qty: 150 1RF Rx Instructions: 50mg tid at 0800,1300,1700, and 100 mg at 2100 trazodone 300 mg tablet 300 mg PO BEDTIME Qty: 30 1RF albuterol sulfate 90 mcg/actuation HFA aerosol inhaler 2 puff inhalation Q6H PRN (Reason: shortness of breath or wheezing) 0RF ipratropium-albuterol 0.5 mg-3 mg(2.5 mg base)/3 mL solution for nebulization 3 ml inhalation Q4H PRN (Reason: Shortness Of Breath Or Wheezing) 0RF dicyclomine 20 mg tablet 20 mg PO TID PRN (Reason: abd pain) Qty: 30 0RF ondansetron HCl 4 mg tablet 4 mg PO TID PRN (Reason: Nausea And Vomiting) 0RF Tylenol Ex Str Rapid Release 500 mg Tablet 1,000 mg PO Q6H PRN (Reason: Pain) 0RF famotidine 20 mg tablet 20 mg PO QAM 0RF Ingrezza 80 mg capsule 80 mg PO QAM 0RF lamotrigine 200 mg tablet 200 mg PO QAM 0RF citalopram 20 mg tablet 40 mg PO QAM 0RF pantoprazole 40 mg tablet,delayed release (DR/EC) 40 mg PO QAM 0RF Nystop 100,000 unit/gram powder 1 applic topical BID PRN (Reason: unknown) 0RF fluticasone propionate 50 mcg/actuation spray,suspension 1 spray intranasal BID PRN (Reason: Allergy Symptoms) 0RF Breo Ellipta 100-25 mcg/dose blister with device 1 inh INHALATION QAM 0RF Zofran 4 mg tablet 4 mg PO Q6H PRN (Reason: nausea and vomiting) Qty: 10 0RF Discharge Orders: Discharge ED (Routine); Ordered 07/09/21 Ordered By: Chivo Deleon Referrals: Dara Tavera FNP [Primary Care Provider] - 1-3 days Discharge Diet: Advance as tolerated and Clear Liquid Discharge Activity: Increase activity as tolerated Patient Instructions: Abdominal Pain (ED) Coding Level of Care Code ED Powerhouse Oiler for Chg Fwd Exam Comprehensive Documented by User: Chivo Deleon, 07/10/21 00:21 HPI - Nausea/Vomiting/Diarrhea General: Chief complaint: Nausea/Vomiting/Diarrhea Stated complaint: ABD PAIN, N/V Time Seen by Provider: 07/09/21 13:57 PFSH ED PFSH: Medical History Bladder stone Borderline personality disorder Chronic anxiety Chronic back pain greater than 3 months duration Chronic gastritis without bleeding COPD (chronic obstructive pulmonary disease) Cystitis cystica Dysphagia Esophageal stricture Foreign body in bladder GERD without esophagitis Neurogenic bladder Psychiatric care Restrictive lung disease Schizoaffective disorder, bipolar type Tardive dyskinesia Urgency incontinence Surgical History H/O bladder repair surgery MESH REPAIR H/O colonoscopy with polypectomy H/O esophagogastroduodenoscopy (09/21/20) H/O: hysterectomy History of appendectomy History of breast biopsy History of foot surgery sx in 2009. Screws placed by Dr. Don. History of ureter stent Hx of cholecystectomy S/P bronchoscopy with biopsy Family History Mother No problems noted. Father No problems noted. Other Asthma Cancer Diabetes Heart disease Social History Quit status (tobacco): considering quitting Second hand smoke exposure: Yes Smoking risk assessment/counseling performed?: No Alcohol intake: never Counseling given: No Counseling given: No Lives independently: Yes Household members: spouse Marital status: Number of children: 3 Current occupational status: disabled History of recent travel: No Current gender identity: Female Course Vital Signs: Vital signs: Vital Signs Temperature 97.6 F 07/09/21 12:55 Pulse Rate 72 07/09/21 18:00 Respiratory Rate 18 07/09/21 18:19 Blood Pressure 160/90 07/09/21 18:00 Pulse Oximetry 99 07/09/21 18:00 MDM - Nausea/Vomiting/Diarrhea MDM Narrative Medical decision making narrative: 55-year-old female checked out to me by previous physician at shift change. This lady first complained of abdominal pain, similar to prior bouts of abdominal pain. She then complained of chest pain.EKG did not reveal significant ST changes. Troponin was negative and stayed negative at [address] of the chest revealed bilateral pulmonary groundglass opacities consistent with atypical pneumonia versus COVID-19. Rapid COVID-19 was negative. She is treated for atypical pneumonia/COPD exacerbation, and treated for symptoms of abdominal pain and vomiting. Lab Data Result diagrams: 07/09/21 15:35 07/09/21 15:35 Labs: Lab Results 07/09/21 07/09/21 07/09/21 15:35 15:35 15:35 WBC 12.8 10^3/uL H 10^3/uL (4.0-10.0) RBC 4.61 10^6/uL 10^6/uL (4.1-5.3) Hgb 14.9 g/dL g/dL (11.5-15.3) Hct 44.3 % % (37.0-47.0) MCV 96.1 fl fl (81-99) MCH 32.3 pg pg (28.0-34.0) MCHC 33.6 g/dL g/dL (30.0-36.0) RDW 14.5 % % (12.1-15.1) Plt Count 202 10^3/cmm 10^3/cmm (130-400) MPV 10.1 fL fL (7.4-10.4) Neut % (Auto) 70.0 % % Lymph % (Auto) 19.8 % % Island % (Auto) 7.7 % % Eos % (Auto) 1.6 % % Baso % (Auto) 0.4 % % Neut # (Auto) 8.96 10^3/uL H 10^3/uL (1.8-7.7) Lymph # (Auto) 2.5 10^3/uL 10^3/uL (0.8-4.8) Island # (Auto) 1.0 10^3/uL H 10^3/uL (0.2-0.9) Eos # (Auto) 0.2 10^3/uL 10^3/uL (0.0-0.8) Baso # (Auto) 0.1 10^3/uL 10^3/uL (0.0-0.1) Nucleated RBC % (auto) 0 % % Nucleated RBCs # 0.0 /100WBC /100WBC Sodium 134 mmol/L L mmol/L (136-145) Potassium 3.9 mmol/L mmol/L (3.5-5.1) Chloride 102 mmol/L mmol/L (98-107) Carbon Dioxide 21 mmol/L L mmol/L (22-29) Anion Gap 14.9 (5-19) BUN 11 mg/dL mg/dL (6-20) Creatinine 0.9 mg/dL mg/dL (0.5-0.9) GFR Calculation 65.5 mL/min L mL/min (90-130) Glucose 97 mg/dL mg/dL (65-115) Calculated Osmolality 277 mOsm/kg L mOsm/kg (285-295) Calcium 8.6 mg/dL mg/dL (8.5-10.5) Magnesium 2.2 mg/dL mg/dL (1.7-2.3) Total Bilirubin 0.2 mg/dL mg/dL (0.15-1.2) AST 10 U/L U/L (0-32) ALT 9 U/L U/L (0-33) Alkaline Phosphatase 139 IU/L H IU/L (35-105) Troponin T Baseline 6 ng/L ng/L (0-10) Troponin T 120 Minute Delta Troponin T Total Protein 6.2 g/dL L g/dL (6.6-8.7) Albumin 3.8 g/dL g/dL (3.5-5.2) Globulin 2.4 g/dL g/dL (1.3-4.6) Lipase 18 U/L U/L (13-60) Procalcitonin Urine Color Urine Appearance Urine pH Ur Specific [place] Urine Protein Urine Glucose (UA) Urine Ketones Urine Blood Urine Nitrate Urine Bilirubin Urine Urobilinogen Ur Leukocyte Esterase SARS-CoV-2 Ag (Rapid) 07/09/21 07/09/21 07/09/21 15:35 18:30 19:10 WBC RBC Hgb Hct MCV MCH MCHC RDW Plt Count MPV Neut % (Auto) Lymph % (Auto) Island % (Auto) Eos % (Auto) Baso % (Auto) Neut # (Auto) Lymph # (Auto) [place] # (Auto) Eos # (Auto) Baso # (Auto) Nucleated RBC % (auto) Nucleated RBCs # Sodium Potassium Chloride Carbon Dioxide Anion Gap BUN Creatinine GFR Calculation Glucose Calculated Osmolality Calcium Magnesium Total Bilirubin AST ALT Alkaline Phosphatase Troponin T Baseline Troponin T 120 Minute 6.00 ng/L ng/L (0-10) Delta Troponin T 0 ABS# ABS# (0-10) Total Protein Albumin Globulin Lipase Procalcitonin 0.03 ng/mL ng/mL (0-0.5) Urine Color Urine Appearance Urine pH Ur Specific [place] Urine Protein Urine Glucose (UA) Urine Ketones Urine Blood Urine Nitrate Urine Bilirubin Urine Urobilinogen Ur Leukocyte Esterase SARS-CoV-2 Ag (Rapid) Negative (Negative) 01/21/22 20:20 WBC RBC Hgb Hct MCV MCH MCHC RDW Plt Count MPV Neut % (Auto) Lymph % (Auto) Island % (Auto) Eos % (Auto) Baso % (Auto) Neut # (Auto) Lymph # (Auto) Island # (Auto) Eos # (Auto) Baso # (Auto) Nucleated RBC % (auto) Nucleated RBCs # Sodium Potassium Chloride Carbon Dioxide Anion Gap BUN Creatinine GFR Calculation Glucose Calculated Osmolality Calcium Magnesium Total Bilirubin AST ALT Alkaline Phosphatase Troponin T Baseline Troponin T 120 Minute Delta Troponin T Total Protein Albumin Globulin Lipase Procalcitonin Urine Color Yellow (Yellow) Urine Appearance Clear (CLEAR) Urine pH 5 (5-7) Ur Specific [place] 1.015 (1.005-1.030) Urine Protein Neg (Negative) Urine Glucose (UA) Norm (Normal) Urine Ketones Negative (Negative) Urine Blood Neg (Negative) Urine Nitrate Negative (Negative) Urine Bilirubin Neg (Negative) Urine Urobilinogen Norm mg/dL mg/dL (Negative) Ur Leukocyte Esterase Negative (Negative) SARS-CoV-2 Ag (Rapid) Discharge Plan Discharge Patient Disposition: Home Clinical Impression: Acute exacerbation of chronic obstructive pulmonary disease Abdominal pain Qualifiers: Abdominal location: generalized Qualified Code(s): R10.84 - Generalized abdominal pain Condition: Stable Prescriptions: New prednisone 20 mg tablet 40 mg PO DAILY Qty: 10 0RF Zithromax 250 mg tablet See Rx Instructions .ROUTE .COMPLEX Qty: 6 0RF Rx Instructions: take 500 mg today (day 1), then 250 mg for 4 days (days 2-5) Zofran 4 mg tablet 4 mg PO Q6H PRN (Reason: nausea and vomiting) Qty: 10 0RF No Action hydroxyzine pamoate 50 mg capsule See Rx Instructions .ROUTE .COMPLEX 30 Days Qty: 150 1RF Rx Instructions: 50mg tid at 0800,1300,1700, and 100 mg at 2100 trazodone 300 mg tablet 300 mg PO BEDTIME Qty: 30 1RF albuterol sulfate 90 mcg/actuation HFA aerosol inhaler 2 puff inhalation Q6H PRN (Reason: shortness of breath or wheezing) 0RF ipratropium-albuterol 0.5 mg-3 mg(2.5 mg base)/3 mL solution for nebulization 3 ml inhalation Q4H PRN (Reason: Shortness Of Breath Or Wheezing) 0RF dicyclomine 20 mg tablet 20 mg PO TID PRN (Reason: abd pain) Qty: 30 0RF ondansetron HCl 4 mg tablet 4 mg PO TID PRN (Reason: Nausea And Vomiting) 0RF Tylenol Ex Str Rapid Release 500 mg Tablet 1,000 mg PO Q6H PRN (Reason: Pain) 0RF famotidine 20 mg tablet 20 mg PO QAM 0RF Ingrezza 80 mg capsule 80 mg PO QAM 0RF lamotrigine 200 mg tablet 200 mg PO QAM 0RF citalopram 20 mg tablet 40 mg PO QAM 0RF pantoprazole 40 mg tablet,delayed release (DR/EC) 40 mg PO QAM 0RF Nystop 100,000 unit/gram powder 1 applic topical BID PRN (Reason: unknown) 0RF fluticasone propionate 50 mcg/actuation spray,suspension 1 spray intranasal BID PRN (Reason: Allergy Symptoms) 0RF Breo Ellipta 100-25 mcg/dose blister with device 1 inh INHALATION QAM 0RF Zofran 4 mg tablet 4 mg PO Q6H PRN (Reason: nausea and vomiting) Qty: 10 0RF Discharge Orders: Discharge ED (Routine); Ordered 07/09/21 Ordered By: Chivo Deleon Referrals: Dara Tavera FNP [Primary Care Provider] - 1-3 days Discharge Diet: Advance as tolerated and Clear Liquid Discharge Activity: Increase activity as tolerated Patient Instructions: Abdominal Pain (ED) Coding Level of Care Code ED Powerhouse Oiler for [place] Fwd Exam Comprehensive
[2021-07-09 15:52] LABS: Basophils # 0.1 10^3/uL (0.0-0.1); Basophils % 0.4 %; Eosinophils # 0.2 10^3/uL (0.0-0.8); Eosinophils % 1.6 %; Hematocrit 44.3 % (37.0-47.0); Hemoglobin 14.9 g/dL (11.5-15.3); Lymphocytes # 2.5 10^3/uL (0.8-4.8); Lymphocytes % 19.8 %; Mean Corpuscular HGB Conc 33.6 g/dL (30.0-36.0); Mean Corpuscular Hemoglobin 32.3 pg (28.0-34.0); Mean Corpuscular Volume 96.1 fl (81-99); Mean Platelet Volume 10.1 fL (7.4-10.4); Monocytes % 7.7 %; Neutrophils # 8.96 10^3/uL (1.8-7.7); Nucleated Red Blood Cells % 0 %; Platelet Count 202 10^3/cmm (130-400); Red Blood Count 4.61 10^6/uL (4.1-5.3); Red Cell Distribution Width 14.5 % (12.1-15.1); White Blood Count 12.8 10^3/uL (4.0-10.0)
[2021-07-09] MEDS: sodium chloride 0.9% 1,000 ML 999 ML IV (15:53)
[2021-07-09 15:57] VITALS: RESP 16; O2SAT 96
[2021-07-09] MEDS: morphine 4 mg/mL SDV 1 mL IVP ×2 (15:57→18:19)
[2021-07-09 16:00] VITALS: BP 132/89; PULSE 64; RESP 17; O2SAT 96
[2021-07-09] MEDS: ondansetron 2 mg/ML SDV 2 mL 4 MG IVP (16:00)
[2021-07-09 16:15] LABS: Alanine Aminotransferase 9 U/L (0-33); Albumin Level 3.8 g/dL (3.5-5.2); Alkaline Phosphatase 139 IU/L (35-105); Anion Gap 14.9 (5-19); Aspartate Amino Transferase 10 U/L (0-32); Blood Urea Nitrogen 11 mg/dL (6-20); Calcium 8.6 mg/dL (8.5-10.5); Carbon Dioxide 21 mmol/L (22-29); Chloride 102 mmol/L (98-107); Globulin 2.4 g/dL (1.3-4.6); Glomerular Filtration Rate 65.5 mL/min (90-130); Glucose 97 mg/dL (65-115); Lipase 18 U/L (13-60); Magnesium 2.2 mg/dL (1.7-2.3); Osmolality Calculated 277 mOsm/kg (285-295); Potassium 3.9 mmol/L (3.5-5.1); Sodium 134 mmol/L (136-145); Total Bilirubin 0.2 mg/dL (0.15-1.2); Total Protein 6.2 g/dL (6.6-8.7)
--- NOTE | 2021-07-09 16:59 | XRR_ITS ---
PROCEDURE INFORMATION: Exam: XR Chest Exam date and time: 07/09/2021 4:59 PM Age: 55 years old Clinical indication: Angina and shortness of breath and other: N/v/d; Additional info: Chest pain TECHNIQUE: Imaging protocol: XR of the chest. Views: 1 view. COMPARISON: CT chest abd pel wo con 03/22/2021 6:17 PM FINDINGS: Lungs: Unremarkable. No consolidation. Pleural spaces: Unremarkable. No pleural effusion. No pneumothorax. Heart/Mediastinum: Unremarkable. No cardiomegaly. Bones/joints: Unremarkable. XR/XR chest 1V portable [id number] IMPRESSION: No acute findings.
--- NOTE | 2021-07-09 17:13 | CTR_ITS ---
PROCEDURE INFORMATION: Exam: CT Chest With Contrast; Diagnostic Exam date and time: 07/09/2021 5:13 PM Age: 55 years old Clinical indication: Abdominal pain; Chest pressure; Patient HX: Chest pain and pressure w/ nausea and vomiting TECHNIQUE: Imaging protocol: Diagnostic computed tomography of the chest with contrast. Radiation optimization: All CT scans at this facility use at least one of these dose optimization techniques: automated exposure control; mA and/or kV adjustment per patient size (includes targeted exams where dose is matched to clinical indication); or iterative reconstruction. Contrast material: OMNI 300; Contrast volume: 95 ml; Contrast route: INTRAVENOUS (IV); COMPARISON: CT abdomen pelvis w con* [id number] 05/24/2021 4:52 PM RADIATION DOSE METRICS: Total DLP (mGy-cm): 1495.85 FINDINGS: Lungs: Multifocal bilateral pulmonary ground-glass opacities. Pleural spaces: Unremarkable. No pneumothorax. No pleural effusion. Heart: Unremarkable. No cardiomegaly. No pericardial effusion. Aorta: Unremarkable. No aortic aneurysm. Lymph nodes: There are multiple mediastinal and perihilar lymph nodes which are not pathologic by size criteria. Intraperitoneal space: Please see the CT scan of the abdomen for description of the upper abdomen. Bones/joints: There is a transitional lumbosacral vertebra. The S1 vertebra is lumbarized. First rib-bearing vertebra is designated T1. T7 benign hemangioma. There are degenerative changes in the visualized spine. There is osseous fusion between the T12 and L1 vertebra. Soft tissues: Unremarkable. infectious and noninfectious processes. (Reference: Guille) REFERENCES: Guille Blood, et al., Rad[employer] Society of [place] Expert Consensus Statement on Reporting Chest CT Findings Related to COVID-19. Endorsed by the Society of Thoracic Radiology, the [place] [employer], and RSNA. Published September 11, 2019. PROCEDURE INFORMATION: Exam: CT Abdomen With Contrast Exam date and time: 07/09/2021 5:13 PM Age: 55 years old Clinical indication: Abdominal pain; Chest pressure; Patient HX: Chest pain and pressure w/ nausea and vomiting TECHNIQUE: Imaging protocol: Computed tomography images of the abdomen with intravenous contrast. Radiation optimization: All CT scans at this facility use at least one of these dose optimization techniques: automated exposure control; mA and/or kV adjustment per patient size (includes targeted exams where dose is matched to clinical indication); or iterative reconstruction. Contrast material: OMNI 300; Contrast volume: 95 ml; Contrast route: INTRAVENOUS (IV); COMPARISON: CT abdomen pelvis w con* [id number] 05/24/2021 4:52 PM RADIATION DOSE METRICS: Total DLP (mGy-cm): 1495.85 FINDINGS: Lungs: Please see the CT scan of the thorax for description of the lung bases. Liver: Normal. No mass. Gallbladder and bile ducts: The gallbladder has been removed. Pancreas: Normal. No ductal dilation. Spleen: Small incidental splenule. Adrenals: Normal. No mass. Kidneys and ureters: Normal. No hydronephrosis. Stomach and bowel: Visualized stomach and bowel are unremarkable. No obstruction. No mucosal thickening. Intraperitoneal space: Unremarkable. No free air. No significant fluid collection. Lymph nodes: Unremarkable. No enlarged lymph nodes. Vasculature: Unremarkable. No abdominal aortic aneurysm. Reproductive: The uterus is not visualized, consistent with hysterectomy. Bones/joints: Unremarkable. No acute fracture. No dislocation. Soft tissues: Unremarkable. CT/CT chest abdomen w con* IMPRESSION: Multifocal bilateral pulmonary ground-glass opacities. This can be seen with pulmonary edema, pneumonitis, or pneumonia.Imaging features can be seen with COVID-19 pneumonia, though are nonspecific and can occur with a variety of IMPRESSION: No acute findings.Non acute findings as described above.
[2021-07-09] MEDS: iohexol 300 mg/mL 100 mL Btl IV (17:30)
[2021-07-09 18:00] VITALS: BP 160/90; PULSE 72; RESP 18; O2SAT 99
[2021-07-09] MEDS: lidocaine 2% viscous 15 ML, aluminum-mag hydrox-simethicon 30 ML, sucralfate oral liq 1 GM PO (18:18)
[2021-07-09 18:19] VITALS: RESP 18
[2021-07-09 18:48] LABS: Troponin(5th) Baseline 6 ng/L (0-10)
[2021-07-09 19:47] LABS: Procalcitonin 0.03 ng/mL (0-0.5)
[2021-07-09 19:49] LABS: Troponin 5 2HR Delta 0 ABS# (0-10)
[2021-07-09 20:36] LABS: Add Urine Microscopic? NO; Charge for UA Resulting for Rev
[2021-07-09 20:41] LABS: Bilirubin Urine Neg (Negative); Blood Urine Neg (Negative); Glucose Urine UA Norm (Normal); Ketones Urine Negative (Negative); Leukocyte Esterase Urine Negative (Negative); Nitrate Urine Negative (Negative); Protein Urine Neg (Negative); Specific Gravity, Urine 1.015 (1.005-1.030); Urine Appearance Clear (CLEAR); Urine Color Yellow (Yellow); Urobilinogen Urine Norm (Negative); pH Urine 5 (5-7)
[2021-07-09 21:12] LABS: SARS Covid-2 Antigen Negative (Negative)
== END 2021-07-09 21:56 | disposition home or self-care (01) ==
PROVIDERS: Emergency Medicine; Family Medicine; Emergency Provider Emergency Medicine; PCP Registered Nurse
DX: R10.84 Generalized abdominal pain (principal); J44.1 Chronic obstructive pulmonary disease with (acute) exacerbation; Z77.22 Contact with and (suspected) exposure to environmental tobacco smoke (acute) (chronic); Z20.822 Contact with and (suspected) exposure to COVID-19
CPT/HCPCS: 71045; 71260; 74160; 80053; 81003; 83690; 83735; 84145; 84484; 85025; 87426; 93005; 96361; 96374; 96375; 96376; 99284; J2270; J2405; J7030; Q9967

== ENCOUNTER 2021-07-11 18:52 | Emergency (ER) | payer MEDICARE, MEDICAID, SELFPAY ==
[2021-07-11 19:06] VITALS: BP 116/59; PULSE 82; RESP 18; TEMP 36.4; O2SAT 97; BMI 31.6
[2021-07-12 02:08] VITALS: BP 112/88; PULSE 83; RESP 18; TEMP 36.6; O2SAT 95
[2021-07-12 04:47] VITALS: BP 123/60; PULSE 72; RESP 19; O2SAT 97
--- NOTE | 2021-07-12 04:50 | XRR_ITS ---
PROCEDURE INFORMATION: Exam: XR Abdomen Exam date and time: 07/12/2021 4:50 AM Age: 55 years old Clinical indication: Nausea and vomiting; Abdominal pain; Generalized; Prior surgery; Surgery date: 6+ months; Surgery type: Hyst, gb, appy; Additional info: Abd pain TECHNIQUE: Imaging protocol: XR of the abdomen. Views: Frontal supine view of the abdomen. 1 View. Total images: 2 COMPARISON: CT chest abdomen w con* 07/09/2021 5:32 PM FINDINGS: Gastrointestinal tract: Bowel gas pattern is nondistended and nonobstructive. Organs: Surgical clips are present in the right upper quadrant which are suggestive of prior cholecystectomy. Vasculature: Incidental phleboliths noted. Atherosclerosis is evident. Bones/joints: Spinal degenerative changes are evident. XR/XR KUB portable [id number] IMPRESSION: Normal bowel gas pattern
[2021-07-12 05:22] LABS: Basophils # 0.1 10^3/uL (0.0-0.1); Basophils % 0.8 %; Eosinophils % 0.4 %; Hematocrit 43.3 % (37.0-47.0); Hemoglobin 14.5 g/dL (11.5-15.3); Lymphocytes # 3.2 10^3/uL (0.8-4.8); Lymphocytes % 37.9 %; Mean Corpuscular HGB Conc 33.5 g/dL (30.0-36.0); Mean Corpuscular Hemoglobin 31.5 pg (28.0-34.0); Mean Corpuscular Volume 94.1 fl (81-99); Mean Platelet Volume 10.6 fL (7.4-10.4); Monocytes # 1.1 10^3/uL (0.2-0.9); Monocytes % 12.5 %; Neutrophils % 48.2 %; Nucleated Red Blood Cells % 0 %; Platelet Count 222 10^3/cmm (130-400); Red Cell Distribution Width 14.5 % (12.1-15.1); White Blood Count 8.5 10^3/uL (4.0-10.0)
[2021-07-12 05:28] VITALS: RESP 17; O2SAT 98
[2021-07-12] MEDS: morphine 4 mg/mL SDV 1 mL IVP ×2 (05:28→06:50)
[2021-07-12] MEDS: ondansetron 2 mg/ML SDV 2 mL 4 MG IVP (05:29)
[2021-07-12 05:43] LABS: Alanine Aminotransferase 10 U/L (0-33); Albumin Level 4.4 g/dL (3.5-5.2); Alkaline Phosphatase 147 IU/L (35-105); Anion Gap 19.9 (5-19); Aspartate Amino Transferase 8 U/L (0-32); Blood Urea Nitrogen 18 mg/dL (6-20); C Reactive Protein 7.8 mg/L (0.0-4.9); Calcium 9.9 mg/dL (8.5-10.5); Carbon Dioxide 19 mmol/L (22-29); Chloride 104 mmol/L (98-107); Globulin 2.4 g/dL (1.3-4.6); Glomerular Filtration Rate 65.5 mL/min (90-130); Glucose 76 mg/dL (65-115); Lipase 23 U/L (13-60); Osmolality Calculated 289 mOsm/kg (285-295); Potassium 3.9 mmol/L (3.5-5.1); Sodium 139 mmol/L (136-145); Total Bilirubin 0.4 mg/dL (0.15-1.2); Total Protein 6.8 g/dL (6.6-8.7)
[2021-07-12 05:48] LABS: Procalcitonin 0.04 ng/mL (0-0.5)
[2021-07-12] MEDS: lidocaine 2% viscous 15 ML, aluminum-mag hydrox-simethicon 30 ML, sucralfate oral liq 1 GM PO (05:52)
--- NOTE | 2021-07-12 06:37 | W.ED.ABDPA2 ---
HPI - Abdominal Pain General: Chief Complaint: Abdominal Pain Stated Complaint: N/V Time Seen by Provider: 07/12/21 04:45 History of Present Illness: HPI narrative: Latesha is a 55 year old female well known to the emergency department. She presents with chronic abdominal pain. She was seen two days ago for the same complaint in the emergency department. She states her pain has slowly gotten worse, and has not improved. She says she's vomited multiple times. No blood in the stool. No fever. She was treated for an exacerbation of COPD on her last visit, and notes she has been taking her medication. MD elicited complaint: abdominal pain Pertinent past history: other Onset (ago): day(s) Pain Consistency: constant Location: Diffuse Severity: similar to previous episodes Quality: cramping and stabbing Radiation: none Migration to: no migration Relieving factors: nothing Associated Symptoms: Reports nausea, poor appetite and vomiting; Denies change in stool character, chills, diarrhea, dysuria, fever(s) and hematemesis Related Data: Date of Last Menstrual Period: 06/19/95 Review of Systems Const: Denies: fever(s) or chills Eyes: Denies: change in vision ENMT: Denies: throat pain Card: Denies: chest pain or palpitations Resp: Reports: non-productive cough; Denies: dyspnea GI: Reports: nausea and vomiting; Denies: hematemesis, diarrhea or change in stool character : Denies: difficulty voiding or dysuria PFS ED PFSH: Medical History Bladder stone Borderline personality disorder Chronic anxiety Chronic back pain greater than 3 months duration Chronic gastritis without bleeding COPD (chronic obstructive pulmonary disease) Cystitis cystica Dysphagia Esophageal stricture Foreign body in bladder GERD without esophagitis Neurogenic bladder Psychiatric care Restrictive lung disease Schizoaffective disorder, bipolar type Tardive dyskinesia Urgency incontinence Surgical History H/O bladder repair surgery MESH REPAIR H/O colonoscopy with polypectomy H/O esophagogastroduodenoscopy (09/21/20) H/O: hysterectomy History of appendectomy History of breast biopsy History of foot surgery sx in 2009. Screws placed by Dr. Don. History of ureter stent Hx of cholecystectomy S/P bronchoscopy with biopsy Family History Mother No problems noted. Father No problems noted. Other Asthma Cancer Diabetes Heart disease Social History Quit status (tobacco): considering quitting Second hand smoke exposure: Yes Smoking risk assessment/counseling performed?: No Alcohol intake: never Counseling given: No Counseling given: No Lives independently: Yes Household members: spouse Marital status: Number of children: 3 Current occupational status: disabled History of recent travel: No Current gender identity: Female Female Reproductive History: Date of last menstrual period: 06/19/95 Physical Exam Const: COMMON NORMALS: patient oriented x3 and no limitations GENERAL APPEARANCE: cooperative; not frail appearing NUTRITIONAL APPEARANCE: overweight ORIENTATION/CONSCIOUSNESS: Yes awake, Yes oriented to person, Yes oriented to place and Yes oriented to time HENMT: COMMON NORMALS: normocephalic and atraumatic HEAD & SCALP: normocephalic and atraumatic Eye: COMMON NORMALS: Equal, round and reactive pupils present and EOMs intact bilaterally PUPIL: Yes Equal, round and reactive pupils present Neck/C-Spine: GENERAL: Yes trachea midline Chest: COMMONS NORMALS: normal inspection of the chest Resp: COMMON NORMALS: normal respiratory effort, No retractions and No use of accessory muscles AUSCULTATION: wheezes Cardio: COMMON NORMALS: regular rate and regular rhythm RATE: regular rate RHYTHM: regular rhythm GI: COMMON NORMALS: Normal to inspection, nondistended, normoactive bowel sounds present and Soft to palpation PALPATION: Yes Soft to palpation and Yes Tenderness to palpation present (GI) (diffuse) Extremity: COMMON NORMALS: normal to inspection Neuro: JEANINE COMA SCALE: document GCS findings Jeanine coma scale eye opening: Spontaneous [place] coma scale verbal response: Orientated Jeanine coma scale motor response: Obey commands Jeanine coma scale total score: 15 COMMON NORMALS: patient oriented x3 SENSORIUM/ORIENTATION: Yes oriented to person, Yes oriented to place and Yes oriented to time Course Vital Signs: Vital signs: Vital Signs Temperature 98.3 F 07/12/21 08:00 Pulse Rate 60 07/12/21 08:00 Respiratory Rate 16 07/12/21 08:00 Blood Pressure 104/48 07/12/21 08:00 Pulse Oximetry 98 07/12/21 08:00 MDM - Abdominal Pain MDM Narrative Medical decision making narrative: Latesha has a normal gas pattern on KUB. She has normal labs, save a mildly low bicarbonate level. This is likely from mild dehydration. She has given IV fluids, antiemetics. She will be allowed home. Lab Data Attestation: I reviewed the patient's lab results. Result diagrams: 07/12/21 05:15 07/12/21 05:15 Labs: Lab Results 07/12/21 07/12/21 07/12/21 05:15 05:15 07:45 WBC 8.5 10^3/uL 10^3/uL (4.0-10.0) RBC 4.60 10^6/uL 10^6/uL (4.1-5.3) Hgb 14.5 g/dL g/dL (11.5-15.3) Hct 43.3 % % (37.0-47.0) MCV 94.1 fl fl (81-99) MCH 31.5 pg pg (28.0-34.0) MCHC 33.5 g/dL g/dL (30.0-36.0) RDW 14.5 % % (12.1-15.1) Plt Count 222 10^3/cmm 10^3/cmm (130-400) MPV 10.6 fL H fL (7.4-10.4) Neut % (Auto) 48.2 % % Lymph % (Auto) 37.9 % % Scott % (Auto) 12.5 % % Eos % (Auto) 0.4 % % Baso % (Auto) 0.8 % % Neut # (Auto) 4.10 10^3/uL 10^3/uL (1.8-7.7) Lymph # (Auto) 3.2 10^3/uL 10^3/uL (0.8-4.8) Scott # (Auto) 1.1 10^3/uL H 10^3/uL (0.2-0.9) Eos # (Auto) 0.0 10^3/uL 10^3/uL (0.0-0.8) Baso # (Auto) 0.1 10^3/uL 10^3/uL (0.0-0.1) Nucleated RBC % (auto) 0 % % Nucleated RBCs # 0.0 /100WBC /100WBC Sodium 139 mmol/L mmol/L (136-145) Potassium 3.9 mmol/L mmol/L (3.5-5.1) Chloride 104 mmol/L mmol/L (98-107) Carbon Dioxide 19 mmol/L L mmol/L (22-29) Anion Gap 19.9 H (5-19) BUN 18 mg/dL mg/dL (6-20) Creatinine 0.9 mg/dL mg/dL (0.5-0.9) GFR Calculation 65.5 mL/min L mL/min (90-130) Glucose 76 mg/dL mg/dL (65-115) Calculated Osmolality 289 mOsm/kg mOsm/kg (285-295) Calcium 9.9 mg/dL mg/dL (8.5-10.5) Total Bilirubin 0.4 mg/dL mg/dL (0.15-1.2) AST 8 U/L U/L (0-32) ALT 10 U/L U/L (0-33) Alkaline Phosphatase 147 IU/L H IU/L (35-105) C-Reactive Protein 7.8 mg/L H mg/L (0.0-4.9) Total Protein 6.8 g/dL g/dL (6.6-8.7) Albumin 4.4 g/dL g/dL (3.5-5.2) Globulin 2.4 g/dL g/dL (1.3-4.6) Lipase 23 U/L U/L (13-60) Procalcitonin 0.04 ng/mL ng/mL (0-0.5) Urine Color Dark yellow (Yellow) Urine Appearance Clear (CLEAR) Urine pH 5 (5-7) Ur Specific Violet 1.030 (1.005-1.030) Urine Protein Neg (Negative) Urine Glucose (UA) Norm (Normal) Urine Ketones 1+ H (Negative) Urine Blood 2+ H (Negative) Urine Nitrate Negative (Negative) Urine Bilirubin 1+ H (Negative) Urine Urobilinogen 1 mg/dL H mg/dL (Negative) Ur Leukocyte Esterase 1+ H (Negative) Urine RBC 0-4 /hpf H /hpf (0-2) Urine WBC 15-25 /hpf H /hpf (0-5) Ur Squamous Epith Cells 5-10 /hpf H /hpf (0-5) Amorphous Sediment Not Reportable Urine Bacteria 2+ /hpf H /hpf (NONE) Urine Mucus Trace /hpf /hpf Discharge Plan Discharge Patient Disposition: Home Clinical Impression: Abdominal pain Qualifiers: Abdominal location: generalized Qualified Code(s): R10.84 - Generalized abdominal pain Condition: Stable Prescriptions: New Zofran 4 mg tablet 4 mg PO Q6H PRN (Reason: nausea and vomiting) Qty: 10 0RF No Action hydroxyzine pamoate 50 mg capsule See Rx Instructions .ROUTE .COMPLEX 30 Days Qty: 150 1RF Rx Instructions: 50mg tid at 0800,1300,1700, and 100 mg at 2100 trazodone 300 mg tablet 300 mg PO BEDTIME Qty: 30 1RF albuterol sulfate 90 mcg/actuation HFA aerosol inhaler 2 puff inhalation Q6H PRN (Reason: shortness of breath or wheezing) 0RF ipratropium-albuterol 0.5 mg-3 mg(2.5 mg base)/3 mL solution for nebulization 3 ml inhalation Q4H PRN (Reason: Shortness Of Breath Or Wheezing) 0RF dicyclomine 20 mg tablet 20 mg PO TID PRN (Reason: abd pain) Qty: 30 0RF ondansetron HCl 4 mg tablet 4 mg PO TID PRN (Reason: Nausea And Vomiting) 0RF Tylenol Ex Str Rapid Release 500 mg Tablet 1,000 mg PO Q6H PRN (Reason: Pain) 0RF famotidine 20 mg tablet 20 mg PO QAM 0RF Ingrezza 80 mg capsule 80 mg PO QAM 0RF lamotrigine 200 mg tablet 200 mg PO QAM 0RF citalopram 20 mg tablet 40 mg PO QAM 0RF pantoprazole 40 mg tablet,delayed release (DR/EC) 40 mg PO QAM 0RF Nystop 100,000 unit/gram powder 1 applic topical BID PRN (Reason: unknown) 0RF fluticasone propionate 50 mcg/actuation spray,suspension 1 spray intranasal BID PRN (Reason: Allergy Symptoms) 0RF Breo Ellipta 100-25 mcg/dose blister with device 1 inh INHALATION QAM 0RF prednisone 20 mg tablet 40 mg PO DAILY Qty: 10 0RF Zithromax 250 mg tablet See Rx Instructions .ROUTE .COMPLEX Qty: 6 0RF Rx Instructions: take 500 mg today (day 1), then 250 mg for 4 days (days 2-5) Zofran 4 mg tablet 4 mg PO Q6H PRN (Reason: nausea and vomiting) Qty: 10 0RF Discharge Orders: Discharge ED (Routine); Ordered 07/12/21 Ordered By: Chivo Deleon Referrals: Dara Tavera, OYSTER CULLER [Primary Care Provider] - 1-3 days Patient Instructions: Abdominal Pain (ED) Activity Restrictions/Additional Instructions: Return for fever, vomiting liquids or medications despite treatment, any other concerning symptoms. Coding Level of Care Code ED Food Expeditor for Shellie Guallpa
[2021-07-12 06:50] VITALS: RESP 18; O2SAT 97
[2021-07-12] MEDS: sodium chloride 0.9% 500 ML 999 ML IV (06:51)
[2021-07-12 08:00] VITALS: BP 104/48; PULSE 60; RESP 16; TEMP 36.8; O2SAT 98
[2021-07-12 08:26] LABS: Add Urine Microscopic? YES; Bilirubin Urine 1+ (Negative); Blood Urine 2+ (Negative); Glucose Urine UA Norm (Normal); Ketones Urine 1+ (Negative); Leukocyte Esterase Urine 1+ (Negative); Nitrate Urine Negative (Negative); Protein Urine Neg (Negative); Urine Appearance Clear (CLEAR); Urine Color Dark Yellow (Yellow); Urobilinogen Urine 1 mg/dL (Negative); pH Urine 5 (5-7)
[2021-07-12 08:27] LABS: Add Urine Culture? Yes; Bacteria Urine 2+ /hpf; Mucus Urine TRACE /hpf; RBC Urine 0-4 /hpf (0-2); WBC Urine 15-25 /hpf (0-5)
--- NOTE | 2021-07-12 08:58 | PC.NURSE ---
REVIEWED DISCHARGE INSTRUCTIONS WITH PATIENT, PATIENT VERBALIZES UNDERSTANDING OF ALL INFORMATION, NEW MED AND NEED FOR F/U. CALLED MEDICAID TRANSPORT FOR PATIENT- TRIP NUMBER [id number]
== END 2021-07-12 08:59 | disposition home or self-care (01) ==
PROVIDERS: Emergency Provider Emergency Medicine; PCP Registered Nurse
DX: R10.84 Generalized abdominal pain (principal); J44.9 Chronic obstructive pulmonary disease, unspecified; Z77.22 Contact with and (suspected) exposure to environmental tobacco smoke (acute) (chronic)
CPT/HCPCS: 74018; 80053; 81001; 83690; 84145; 85025; 86140; 87086; 96374; 96375; 96376; 99284; J2270; J2405; J7040

== ENCOUNTER 2021-07-31 21:00 | Emergency (ER) | payer MEDICARE, MEDICAID, SELFPAY ==
[2021-07-31 21:05] VITALS: PULSE 80; RESP 18; TEMP 36.5; O2SAT 96; BMI 31.6
--- NOTE | 2021-07-31 22:38 | W.ED.COVID ---
Documented by User: AMANDEEP Nunez 08/01/21 00:53 HPI - COVID General: Chief Complaint: COVID symptoms Stated Complaint: ABDOMINAL PAIN Time Seen by Provider: 07/31/21 22:36 Triage information: No fever, cough or shortness of breath. Exposure to COVID + person last 14 days History of Present Illness: 55-year-old female comes in today with complaints of nausea and vomiting with some diarrhea for the last 3 days. Patient reported exposure to Covid 19 3 days ago. Patient was prompted to come to the ER due to some significant abdominal pain. Patient does have a history of chronic gastrointestinal issues. Patient also has problems with COPD, substance abuse, GERD, and depression. Patient appears mildly unwell but not toxic. Patient appears in moderate pain. MD complaint: reported COVID exposure COVID 19 common symptoms: positive nausea, vomiting and diarrhea Onset (ago): day(s) (2-3) Severity: slowly worsening Pertinent comorbid conditions: COPD/respiratory disease and obesity COVID Results: SARS-CoV-2 Antigen (Rapid) Negative (Negative) 07/09/21 18:30 07/09/21 SARS-CoV-2 RNA (RT-PCR) Not detected (NOT DETECTED) 04/07/21 11:01 04/07/21 Nasal/Oral Coronavirus 2019 PCR Not detected 08/19/20 21:36 08/19/20 SARS-CoV-2 (PCR) Not detected (NOT DETECT) 08/01/21 00:20 08/01/21 Coronavirus Type 229E (PCR) Not detected (NOT DETECT) 08/01/21 00:20 08/01/21 Review of Systems GI: Reports: abdominal pain, nausea, vomiting and diarrhea [facility] ED PFSH: Medical History (Updated 08/01/21 @ 00:45 by AMANDEEP Nunez) Bladder stone Borderline personality disorder Chronic anxiety Chronic back pain greater than 3 months duration Chronic gastritis without bleeding COPD (chronic obstructive pulmonary disease) Cystitis cystica Dysphagia Esophageal stricture Foreign body in bladder GERD without esophagitis Neurogenic bladder Psychiatric care Restrictive lung disease Schizoaffective disorder, bipolar type Tardive dyskinesia Urgency incontinence Surgical History H/O bladder repair surgery MESH REPAIR H/O colonoscopy with polypectomy H/O esophagogastroduodenoscopy (09/21/20) H/O: hysterectomy History of appendectomy History of breast biopsy History of foot surgery sx in 2010. Screws placed by Dr. Don. History of ureter stent Hx of cholecystectomy S/P bronchoscopy with biopsy Family History Mother No problems noted. Father No problems noted. Other Asthma Cancer Diabetes Heart disease Social History Smoking and tobacco status: current every day smoker cigarettes Years cigarettes smoked: 20 [ Other cigarette details: Hx of 1 PPD x 20 Years] Quit status (tobacco): considering quitting Second hand smoke exposure: Yes Smoking risk assessment/counseling performed?: No Alcohol intake: never Counseling given: No Counseling given: No Lives independently: Yes Household members: spouse Marital status: Number of children: 3 Current occupational status: disabled History of recent travel: No Current gender identity: Female Female Reproductive History: Date of last menstrual period: 06/19/95 Physical Exam Const: COMMON NORMALS: alert HENMT: COMMON NORMALS: normocephalic HEAD & SCALP: normocephalic Neck/C-Spine: COMMON NORMALS: full ROM Resp: COMMON NORMALS: normal respiratory effort and No retractions Cardio: COMMON NORMALS: regular rate and regular rhythm RATE: regular rate RHYTHM: regular rhythm GI: AUSCULTATION: Yes normoactive bowel sounds PALPATION: Yes Firmness to palpation present (GI), Yes Tenderness to palpation present (GI) (Diffuse tenderness), No Guarding due to palpation present (GI) and No Rigid due to palpation PERCUSSION: tympanic to percussion : COMMON NORMALS: Yes no CVA tenderness BLADDER/KIDNEY EXAM: Yes no CVA tenderness Back/Pelvis: COMMON NORMALS: no CVA tenderness Extremity: COMMON NORMALS: normal to inspection Neuro: SENSORIUM/ORIENTATION: Yes alert Psych: COMMON NORMALS: cooperative Skin: COMMON NORMALS: no rashes or lesions noted GENERAL SKIN EXAM: no rashes or lesions noted Course Vital Signs: Vital signs: Vital Signs Temperature 97.7 F 07/31/21 21:05 Pulse Rate 80 07/31/21 21:05 Respiratory Rate 18 08/01/21 01:12 Pulse Oximetry 94 08/01/21 01:08 MDM - COVID Medical Decision Making 55-year-old female comes in today with complaints of worsening abdominal pain. On exam patient's abdomen was slightly firm, normal active bowel sounds, and diffuse tenderness. Patient moves all extremities well. Patient ambulated without difficulty. No guarding was noted of the abdomen. No CVA tenderness. Vital signs were normal. Differential diagnosis exacerbation of chronic abdominal pain, bowel obstruction, malingering. Patient has multiple visits to the ER for similar complaints including abdominal pain. Review of the medical history noted chronic urinary tract infections along with depression and opioid abuse. CBC and CMP were unremarkable. Acute abdominal x-ray series was completed and noted no sign of bowel obstruction or perforation and normal chest x-ray. Urinalysis did show urine with a large amount of white blood cells and positive nitrates. Like patient might be having exacerbation of her chronic abdominal pain we will go cover with antibiotics 1 g of Rocephin IM to follow with Macrobid daily for the next 5 days for urinary tract infection. Patient was also given some Diflucan due to yeast being noted in her urine. Will give 1 dose now and repeat in 3 days. Patient will continue with her Zofran for nausea and follow-up with primary care for further instruction and evaluation. No sign of surgical abdomen or serious illness was noted at this time. Lab Data : 07/31/21 23:56 07/31/21: Laboratory Results WBC 7.1 10^3/uL (4.0-10.0) 07/31/21 23:56 RBC 4.27 10^6/uL (4.1-5.3) 07/31/21: Hgb 13.8 g/dL (11.5-15.3) 07/31/21 23: Hct 42.0 % (37.0-47.0) 07/31/21: MCV 98.4 fl (81-99) 07/31/21: MCH 32.3 pg (28.0-34.0) 07/31/21: MCHC 32.9 g/dL (30.0-36.0) 07/31/21 23: RDW 14.5 % (12.1-15.1) 07/31/21: Plt Count 170 10^3/cmm (130-400) 07/31/21:56 MPV 10.9 fL (7.4-10.4) H 07/31/21 23:56 Neut % (Auto) 63.2 % 07/31/21 23:56 Lymph % (Auto) 27.3 % 07/31/21 23:56 [place] % (Auto) 8.3 % 07/31/21 23:56 Eos % (Auto) 0.0 % 07/31/21 23:56 Baso % (Auto) 0.8 % 07/31/21 23:56 Neut # (Auto) 4.51 10^3/uL (1.8-7.7) 07/31/21 23:56 Lymph # (Auto) 2.0 10^3/uL (0.8-4.8) 07/31/21 23:56 [place] # (Auto) 0.6 10^3/uL (0.2-0.9) 07/31/21 23:56 Eos # (Auto) 0.0 10^3/uL (0.0-0.8) 07/31/21 23:56 Baso # (Auto) 0.1 10^3/uL (0.0-0.1) 07/31/21 23:56 Nucleated RBC % (auto) 0 % 07/31/21 23:56 Nucleated RBCs # 0.0 /100WBC 07/31/21 23:56 Sodium 140 mmol/L (136-145) 07/31/21 23:56 Potassium 3.9 mmol/L (3.5-5.1) 07/31/21 23:56 Chloride 105 mmol/L (98-107) 07/31/21 23:56 Carbon Dioxide 25 mmol/L (22-29) 07/31/21 23:56 Anion Gap 13.9 (5-19) 07/31/21 23:56 BUN 16 mg/dL (6-20) 07/31/21 23:56 Creatinine 1.0 mg/dL (0.5-0.9) H 07/31/21 23:56 GFR Calculation 58.0 mL/min (90-130) L 07/31/21 23:56 Glucose 102 mg/dL (65-115) 07/31/21 23:56 Calculated Osmolality 291 mOsm/kg (285-295) 07/31/21 23:56 Calcium 8.5 mg/dL (8.5-10.5) 07/31/21 23:56 Total Bilirubin 0.2 mg/dL (0.15-1.2) 07/31/21 23:56 AST 8 U/L (0-32) 07/31/21 23:56 ALT 6 U/L (0-33) 07/31/21 23:56 Alkaline Phosphatase 142 IU/L (35-105) H 07/31/21 23:56 Total Protein 6.1 g/dL (6.6-8.7) L 07/31/21 23:56 Albumin 3.9 g/dL (3.5-5.2) 07/31/21 23:56 Globulin 2.2 g/dL (1.3-4.6) 07/31/21 23:56 Lipase 19 U/L (13-60) 07/31/21 23:56 HCG, Qual Negative (Negative) 07/31/21 23:56 Urine Color Kinde (Yellow) 07/31/21 23:56 Urine Appearance Sl hazy (CLEAR) 07/31/21 23:56 Urine pH 5 (5-7) 07/31/21 23:56 Ur Specific [place] 1.025 (1.005-1.030) 07/31/21 23:56 Urine Protein 2+ (Negative) H 07/31/21 23:56 Urine Glucose (UA) Norm (Normal) 07/31/21 23:56 Urine Ketones Negative (Negative) 07/31/21 23:56 Urine Blood Neg (Negative) 07/31/21 23:56 Urine Nitrate Positive (Negative) H 07/31/21 23:56 Urine Bilirubin 2+ (Negative) H 07/31/21 23:56 Urine Urobilinogen 8 mg/dL (Negative) H 07/31/21 23:56 Ur Leukocyte Esterase 1+ (Negative) H 07/31/21 23:56 Urine RBC 0-4 /hpf (0-2) H 07/31/21 23:56 Urine WBC 40-55 /hpf (0-5) H 07/31/21 23:56 Ur Squamous Epith Cells 15-25 /hpf (0-5) H 07/31/21 23:56 Amorphous Sediment Not Reportable 07/31/21 23:56 Urine Bacteria Trace /hpf (NONE) 07/31/21 23:56 Urine Mucus 3+ /hpf 07/31/21 23:56 Urine Yeast 1+ /hpf H 07/31/21 23:56 Coronavirus 229E (PCR) Not detected (NOT DETECT) 08/01/21 00:20 SARS-CoV-2 (PCR) Not detected (NOT DETECT) 08/01/21 00:20 SARS-CoV-2 Antigen (Rapid) Negative (Negative) 07/09/21 18:30 07/09/21 SARS-CoV-2 RNA (RT-PCR) Not detected (NOT DETECTED) 04/07/21 11:01 04/07/21 Nasal/Oral Coronavirus 2019 PCR Not detected 08/19/20 21:36 08/19/20 SARS-CoV-2 (PCR) Not detected (NOT DETECT) 08/01/21 00:20 08/01/21 Coronavirus Type 229E (PCR) Not detected (NOT DETECT) 08/01/21 00:20 08/01/21 Discharge Plan Discharge Patient Disposition: Home Clinical Impression: Abdominal pain, Chronic cystitis with hematuria, Laura albicans infection Condition: Stable Prescriptions: New Macrobid 100 mg capsule 100 mg PO BID 5 Days Qty: 10 0RF Rx Instructions: must administer with a meal/food fluconazole 150 mg tablet 150 mg PO Q3D Qty: 2 0RF Rx Instructions: may repeat second dose 72 hrs after first dose if symptoms persist hydrocodone-acetaminophen 5-325 mg tablet 1 tab PO Q8H PRN (Reason: pain) Qty: 6 0RF No Action hydroxyzine pamoate 50 mg capsule See Rx Instructions .ROUTE .COMPLEX 30 Days Qty: 150 1RF Rx Instructions: 50mg tid at 0800,1300,1700, and 100 mg at 2100 trazodone 300 mg tablet 300 mg PO BEDTIME Qty: 30 1RF Trelegy Ellipta 200-62.5-25 mcg blister with device 1 inh inhalation DAILY Qty: 1 0RF Rx Instructions: will stop Breo and Ipratropium albuterol sulfate 90 mcg/actuation HFA aerosol inhaler 2 puff inhalation Q6H PRN (Reason: shortness of breath or wheezing) 0RF ipratropium-albuterol 0.5 mg-3 mg(2.5 mg base)/3 mL solution for nebulization 3 ml inhalation Q4H PRN (Reason: Shortness Of Breath Or Wheezing) 0RF Hold Instructions: Doctor's Order dicyclomine 20 mg tablet 20 mg PO TID PRN (Reason: abd pain) Qty: 30 0RF ondansetron HCl 4 mg tablet 4 mg PO TID PRN (Reason: Nausea And Vomiting) 0RF Tylenol Ex Str Rapid Release 500 mg Tablet 1,000 mg PO Q6H PRN (Reason: Pain) 0RF famotidine 20 mg tablet 20 mg PO QAM 0RF Ingrezza 80 mg capsule 80 mg PO QAM 0RF lamotrigine 200 mg tablet 200 mg PO QAM 0RF citalopram 20 mg tablet 40 mg PO QAM 0RF pantoprazole 40 mg tablet,delayed release (DR/EC) 40 mg PO QAM 0RF Nystop 100,000 unit/gram powder 1 applic topical BID PRN (Reason: unknown) 0RF fluticasone propionate 50 mcg/actuation spray,suspension 1 spray intranasal BID PRN (Reason: Allergy Symptoms) 0RF Zofran 4 mg tablet 4 mg PO Q6H PRN (Reason: nausea and vomiting) Qty: 10 0RF Zofran 4 mg tablet 4 mg PO Q6H PRN (Reason: nausea and vomiting) Qty: 10 0RF Discharge Orders: Discharge ED (Routine); Ordered 08/01/21 Ordered By: Roney Vann Referrals: Dara Tavera FNP [Primary Care Provider] - Discharge Diet: Usual diet Discharge Activity: Increase activity as tolerated Patient Instructions: Abdominal Pain (ED), Opioid Safety Activity Restrictions/Additional Instructions: Drink plenty of water with medication. Take antibiotic twice daily for the next 5 days. Use fluconazole 1 tablet now and repeat in 3 days. Use acetaminophen for pain. Use hydrocodone for severe pain. Use ice or heat for other pain relief. Follow-up with primary care for further instruction. And recheck of urine. Return to ER for new concerns. Coding Level of Care Code ED Cage Manager for Chg Fwd Exam Comprehensive Documented by User: Chivo Deleon DO 08/01/21 02:55 HPI - COVID General: Chief Complaint: COVID symptoms Stated Complaint: ABDOMINAL PAIN Time Seen by Provider: 07/31/21 22:36 COVID Results: SARS-CoV-2 Antigen (Rapid) Negative (Negative) 07/09/21 18:30 07/09/21 SARS-CoV-2 RNA (RT-PCR) Not detected (NOT DETECTED) 04/07/21 11:01 04/07/21 Nasal/Oral Coronavirus 2019 PCR Not detected 08/19/20 21:36 08/19/20 SARS-CoV-2 (PCR) Not detected (NOT DETECT) 08/01/21 00:20 08/01/21 Coronavirus Type 229E (PCR) Not detected (NOT DETECT) 08/01/21 00:20 08/01/21 PFS ED PFSH: Medical History (Updated 08/01/21 @ 00:45 by AMANDEEP Nunez) Bladder stone Borderline personality disorder Chronic anxiety Chronic back pain greater than 3 months duration Chronic gastritis without bleeding COPD (chronic obstructive pulmonary disease) Cystitis cystica Dysphagia Esophageal stricture Foreign body in bladder GERD without esophagitis Neurogenic bladder Psychiatric care Restrictive lung disease Schizoaffective disorder, bipolar type Tardive dyskinesia Urgency incontinence Surgical History H/O bladder repair surgery MESH REPAIR H/O colonoscopy with polypectomy H/O esophagogastroduodenoscopy (09/21/20) H/O: hysterectomy History of appendectomy History of breast biopsy History of foot surgery sx in 2009. Screws placed by Dr. Don. History of ureter stent Hx of cholecystectomy S/P bronchoscopy with biopsy Family History Mother No problems noted. Father No problems noted. Other Asthma Cancer Diabetes Heart disease Social History Smoking and tobacco status: current every day smoker cigarettes Years cigarettes smoked: 20 [ Other cigarette details: Hx of 1 PPD x 20 Years] Quit status (tobacco): considering quitting Second hand smoke exposure: Yes Smoking risk assessment/counseling performed?: No Alcohol intake: never Counseling given: No Counseling given: No Lives independently: Yes Household members: spouse Marital status: Number of children: 3 Current occupational status: disabled History of recent travel: No Current gender identity: Female Course Vital Signs: Vital signs: Vital Signs Temperature 97.7 F 07/31/21 21:05 Pulse Rate 80 07/31/21 21:05 Respiratory Rate 18 08/01/21 01:12 Pulse Oximetry 94 08/01/21 01:08 [facility] - COVID Medical Decision Making 55-year-old female comes in today with complaints of worsening abdominal pain. On exam patient's abdomen was slightly firm, normal active bowel sounds, and diffuse tenderness. Patient moves all extremities well. Patient ambulated without difficulty. No guarding was noted of the abdomen. No CVA tenderness. Vital signs were normal. Differential diagnosis exacerbation of chronic abdominal pain, bowel obstruction, malingering. Patient has multiple visits to the ER for similar complaints including abdominal pain. Review of the medical history noted chronic urinary tract infections along with depression and opioid abuse. CBC and CMP were unremarkable. Acute abdominal x-ray series was completed and noted no sign of bowel obstruction or perforation and normal chest x-ray. Urinalysis did show urine with a large amount of white blood cells and positive nitrates. Like patient might be having exacerbation of her chronic abdominal pain we will go cover with antibiotics 1 g of Rocephin IM to follow with Macrobid daily for the next 5 days for urinary tract infection. Patient was also given some Diflucan due to yeast being noted in her urine. Will give 1 dose now and repeat in 3 days. Patient will continue with her Zofran for nausea and follow-up with primary care for further instruction and evaluation. No sign of surgical abdomen or serious illness was noted at this time. This patient was originally seen by AMANDEEP Chung.? I agree with his history, evaluation, and treatment. Lab Data : 07/31/21 23:56 07/31/21 23:56 Laboratory Results WBC 7.1 10^3/uL (4.0-10.0) 07/31/21 23:56 RBC 4.27 10^6/uL (4.1-5.3) 07/31/21 23:56 Hgb 13.8 g/dL (11.5-15.3) 07/31/21 23:56 Hct 42.0 % (37.0-47.0) 07/31/21 23:56 MCV 98.4 fl (81-99) 07/31/21 23:56 MCH 32.3 pg (28.0-34.0) 07/31/21 23:56 MCHC 32.9 g/dL (30.0-36.0) 07/31/21 23:56 RDW 14.5 % (12.1-15.1) 07/31/21 23:56 Plt Count 170 10^3/cmm (130-400) 07/31/21 23:56 MPV 10.9 fL (7.4-10.4) H 07/31/21 23:56 Neut % (Auto) 63.2 % 07/31/21 23:56 Lymph % (Auto) 27.3 % 07/31/21 23:56 [place] % (Auto) 8.3 % 07/31/21 23:56 Eos % (Auto) 0.0 % 07/31/21 23:56 Baso % (Auto) 0.8 % 07/31/21 23:56 Neut # (Auto) 4.51 10^3/uL (1.8-7.7) 07/31/21 23:56 Lymph # (Auto) 2.0 10^3/uL (0.8-4.8) 07/31/21 23:56 [place] # (Auto) 0.6 10^3/uL (0.2-0.9) 07/31/21 23:56 Eos # (Auto) 0.0 10^3/uL (0.0-0.8) 07/31/21 23:56 Baso # (Auto) 0.1 10^3/uL (0.0-0.1) 07/31/21 23:56 Nucleated RBC % (auto) 0 % 07/31/21 23:56 Nucleated RBCs # 0.0 /100WBC 07/31/21 23:56 Sodium 140 mmol/L (136-145) 07/31/21 23:56 Potassium 3.9 mmol/L (3.5-5.1) 07/31/21 23:56 Chloride 105 mmol/L (98-107) 07/31/21 23:56 Carbon Dioxide 25 mmol/L (22-29) 07/31/21 23:56 Anion Gap 13.9 (5-19) 07/31/21 23:56 BUN 16 mg/dL (6-20) 07/31/21 23:56 Creatinine 1.0 mg/dL (0.5-0.9) H 07/31/21 23:56 GFR Calculation 58.0 mL/min (90-130) L 07/31/21 23:56 Glucose 102 mg/dL (65-115) 07/31/21 23:56 Calculated Osmolality 291 mOsm/kg (285-295) 07/31/21 23:56 Calcium 8.5 mg/dL (8.5-10.5) 07/31/21 23:56 Total Bilirubin 0.2 mg/dL (0.15-1.2) 07/31/21 23:56 AST 8 U/L (0-32) 07/31/21 23:56 ALT 6 U/L (0-33) 07/31/21 23:56 Alkaline Phosphatase 142 IU/L (35-105) H 07/31/21 23:56 Total Protein 6.1 g/dL (6.6-8.7) L 07/31/21 23:56 Albumin 3.9 g/dL (3.5-5.2) 07/31/21 23:56 Globulin 2.2 g/dL (1.3-4.6) 07/31/21 23:56 Lipase 19 U/L (13-60) 07/31/21 23:56 HCG, Qual Negative (Negative) 07/31/21 23:56 Urine Color [place] (Yellow) 07/31/21 23:56 Urine Appearance Sl hazy (CLEAR) 07/31/21 23:56 Urine pH 5 (5-7) 07/31/21 23:56 Ur Specific [place] 1.025 (1.005-1.030) 07/31/21 23:56 Urine Protein 2+ (Negative) H 07/31/21 23:56 Urine Glucose (UA) Norm (Normal) 07/31/21 23:56 Urine Ketones Negative (Negative) 07/31/21 23:56 Urine Blood Neg (Negative) 07/31/21 23:56 Urine Nitrate Positive (Negative) H 07/31/21 23:56 Urine Bilirubin 2+ (Negative) H 07/31/21 23:56 Urine Urobilinogen 8 mg/dL (Negative) H 07/31/21 23:56 Ur Leukocyte Esterase 1+ (Negative) H 07/31/21 23:56 Urine RBC 0-4 /hpf (0-2) H 07/31/21 23:56 Urine WBC 40-55 /hpf (0-5) H 07/31/21 23:56 Ur Squamous Epith Cells 15-25 /hpf (0-5) H 07/31/21 23:56 Amorphous Sediment Not Reportable 07/31/21 23:56 Urine Bacteria Trace /hpf (NONE) 07/31/21 23:56 Urine Mucus 3+ /hpf 07/31/21 23:56 Urine Yeast 1+ /hpf H 07/31/21 23:56 Coronavirus 229E (PCR) Not detected (NOT DETECT) 08/01/21 00:20 SARS-CoV-2 (PCR) Not detected (NOT DETECT) 08/01/21 00:20 SARS-CoV-2 Antigen (Rapid) Negative (Negative) 07/09/21 18:30 07/09/21 SARS-CoV-2 RNA (RT-PCR) Not detected (NOT DETECTED) 04/07/21 11:01 04/07/21 Nasal/Oral Coronavirus 2019 PCR Not detected 08/19/20 21:36 08/19/20 SARS-CoV-2 (PCR) Not detected (NOT DETECT) 08/01/21 00:20 08/01/21 Coronavirus Type 229E (PCR) Not detected (NOT DETECT) 08/01/21 00:20 08/01/21 Discharge Plan Discharge Patient Disposition: Home Clinical Impression: Abdominal pain, Chronic cystitis with hematuria, Laura albicans infection Condition: Stable Prescriptions: New Macrobid 100 mg capsule 100 mg PO BID 5 Days Qty: 10 0RF Rx Instructions: must administer with a meal/food fluconazole 150 mg tablet 150 mg PO Q3D Qty: 2 0RF Rx Instructions: may repeat second dose 72 hrs after first dose if symptoms persist hydrocodone-acetaminophen 5-325 mg tablet 1 tab PO Q8H PRN (Reason: pain) Qty: 6 0RF No Action hydroxyzine pamoate 50 mg capsule See Rx Instructions .ROUTE .COMPLEX 30 Days Qty: 150 1RF Rx Instructions: 50mg tid at 0800,1300,1700, and 100 mg at 2100 trazodone 300 mg tablet 300 mg PO BEDTIME Qty: 30 1RF Trelegy Ellipta 200-62.5-25 mcg blister with device 1 inh inhalation DAILY Qty: 1 0RF Rx Instructions: will stop Breo and Ipratropium albuterol sulfate 90 mcg/actuation HFA aerosol inhaler 2 puff inhalation Q6H PRN (Reason: shortness of breath or wheezing) 0RF ipratropium-albuterol 0.5 mg-3 mg(2.5 mg base)/3 mL solution for nebulization 3 ml inhalation Q4H PRN (Reason: Shortness Of Breath Or Wheezing) 0RF Hold Instructions: Doctor's Order dicyclomine 20 mg tablet 20 mg PO TID PRN (Reason: abd pain) Qty: 30 0RF ondansetron HCl 4 mg tablet 4 mg PO TID PRN (Reason: Nausea And Vomiting) 0RF Tylenol Ex Str Rapid Release 500 mg Tablet 1,000 mg PO Q6H PRN (Reason: Pain) 0RF famotidine 20 mg tablet 20 mg PO QAM 0RF Ingrezza 80 mg capsule 80 mg PO QAM 0RF lamotrigine 200 mg tablet 200 mg PO QAM 0RF citalopram 20 mg tablet 40 mg PO QAM 0RF pantoprazole 40 mg tablet,delayed release (DR/EC) 40 mg PO QAM 0RF Nystop 100,000 unit/gram powder 1 applic topical BID PRN (Reason: unknown) 0RF fluticasone propionate 50 mcg/actuation spray,suspension 1 spray intranasal BID PRN (Reason: Allergy Symptoms) 0RF Zofran 4 mg tablet 4 mg PO Q6H PRN (Reason: nausea and vomiting) Qty: 10 0RF Zofran 4 mg tablet 4 mg PO Q6H PRN (Reason: nausea and vomiting) Qty: 10 0RF Discharge Orders: Discharge ED (Routine); Ordered 08/01/21 Ordered By: Roney Vann Referrals: Dara Tavera FNP [Primary Care Provider] - Discharge Diet: Usual diet Discharge Activity: Increase activity as tolerated Patient Instructions: Abdominal Pain (ED), Opioid Safety Activity Restrictions/Additional Instructions: Drink plenty of water with medication. Take antibiotic twice daily for the next 5 days. Use fluconazole 1 tablet now and repeat in 3 days. Use acetaminophen for pain. Use hydrocodone for severe pain. Use ice or heat for other pain relief. Follow-up with primary care for further instruction. And recheck of urine. Return to ER for new concerns. Coding Level of Care Code ED Cage Manager for Chg Fwd Exam Comprehensive
--- NOTE | 2021-07-31 23:53 | XRR_ITS ---
PROCEDURE INFORMATION: Exam: XR Abdomen Exam date and time: 07/31/2021 11:53 PM Age: 55 years old Clinical indication: Abdominal pain; Generalized; Prior surgery; Surgery date: 6+ months; Additional info: Abd pain, R/O obstruction TECHNIQUE: Imaging protocol: XR of the abdomen. Views: 2 Views. Upright and supine views. COMPARISON: CR (ABDOMEN, ) 07/12/2021 4:55 AM FINDINGS: Gastrointestinal tract: Normal. No bowel dilation. Intraperitoneal space: Normal. No free air. Organs: There has been a cholecystectomy. Bones/joints: Unremarkable for age. Soft tissues: Prior left inguinal hernia repair. XR/XR acute abdomen series 20559 IMPRESSION: No evidence of obstruction.
[2021-08-01 00:02] LABS: Basophils # 0.1 10^3/uL (0.0-0.1); Basophils % 0.8 %; Hemoglobin 13.8 g/dL (11.5-15.3); Lymphocytes % 27.3 %; Mean Corpuscular HGB Conc 32.9 g/dL (30.0-36.0); Mean Corpuscular Hemoglobin 32.3 pg (28.0-34.0); Mean Corpuscular Volume 98.4 fl (81-99); Mean Platelet Volume 10.9 fL (7.4-10.4); Monocytes # 0.6 10^3/uL (0.2-0.9); Monocytes % 8.3 %; Neutrophils # 4.51 10^3/uL (1.8-7.7); Neutrophils % 63.2 %; Nucleated Red Blood Cells % 0 %; Platelet Count 170 10^3/cmm (130-400); Red Blood Count 4.27 10^6/uL (4.1-5.3); Red Cell Distribution Width 14.5 % (12.1-15.1); White Blood Count 7.1 10^3/uL (4.0-10.0)
[2021-08-01 00:16] LABS: HCG, Serum Qual Negative (Negative)
[2021-08-01 00:23] LABS: Alanine Aminotransferase 6 U/L (0-33); Albumin Level 3.9 g/dL (3.5-5.2); Alkaline Phosphatase 142 IU/L (35-105); Anion Gap 13.9 (5-19); Aspartate Amino Transferase 8 U/L (0-32); Blood Urea Nitrogen 16 mg/dL (6-20); Calcium 8.5 mg/dL (8.5-10.5); Carbon Dioxide 25 mmol/L (22-29); Chloride 105 mmol/L (98-107); Globulin 2.2 g/dL (1.3-4.6); Glucose 102 mg/dL (65-115); Lipase 19 U/L (13-60); Osmolality Calculated 291 mOsm/kg (285-295); Potassium 3.9 mmol/L (3.5-5.1); Sodium 140 mmol/L (136-145); Total Bilirubin 0.2 mg/dL (0.15-1.2); Total Protein 6.1 g/dL (6.6-8.7)
[2021-08-01 00:27] LABS: Urine Color Orange (Yellow)
[2021-08-01 00:28] LABS: Add Urine Culture? Yes; Add Urine Microscopic? YES; Bacteria Urine TRACE /hpf; Bilirubin Urine 2+ (Negative); Blood Urine Neg (Negative); Glucose Urine UA Norm (Normal); Ketones Urine Negative (Negative); Leukocyte Esterase Urine 1+ (Negative); Mucus Urine 3+ /hpf; Nitrate Urine Positive (Negative); Protein Urine 2+ (Negative); RBC Urine 0-4 /hpf (0-2); Specific Gravity, Urine 1.025 (1.005-1.030); Squamous Epithelial Cell Urine 15-25 /hpf (0-5); Urine Appearance SL Hazy (CLEAR); Urobilinogen Urine 8 mg/dL (Negative); WBC Urine 40-55 /hpf (0-5); pH Urine 5 (5-7)
[2021-08-01 00:30] LABS: Creatinine Clr Calc Pharmacy 70.5331
[2021-08-01 01:06] VITALS: RESP 17
[2021-08-01] MEDS: ondansetron 2 mg/ML SDV 2 mL 4 MG IVP (01:06)
[2021-08-01] MEDS: morphine 4 mg/mL SDV 1 mL IVP (01:06)
[2021-08-01] MEDS: cefTRIAXone 1,000 MG in lidocaine 1% 2.1 ML 1 MG IM (01:07)
[2021-08-01 01:08] VITALS: O2SAT 94
[2021-08-01 01:12] VITALS: RESP 18
[2021-08-01 02:14] LABS: Adenovirus Not Detected (NOT DETECT); Chlamydia Pneumoniae Not Detected (NOT DETECT); Coronavirus 229E,HKU1,NL63,OC4 Not Detected (NOT DETECT); Human Metapneumovirus Not Detected (NOT DETECT); Human Rhinovirus/Enterovirus Not Detected (NOT DETECT); Influenza A Not Detected (NOT DETECT); Influenza A H1 Not Detected (NOT DETECT); Influenza A H1-2009 Not Detected (NOT DETECT); Influenza A H3 Not Detected (NOT DETECT); Influenza B Not Detected (NOT DETECT); Mycoplasma Pneumoniae Not Detected (NOT DETECT); Parainfluenza Virus Type 1 Not Detected (NOT DETECT); Parainfluenza Virus Type 2 Not Detected (NOT DETECT); Parainfluenza Virus Type 3 Not Detected (NOT DETECT); Parainfluenza Virus Type 4 Not Detected (NOT DETECT); Respiratory Syncytial Virus A Not Detected (NOT DETECT); Respiratory Syncytial Virus B Not Detected (NOT DETECT); SARS-COV-2 Not Detected (NOT DETECT)
== END 2021-08-01 01:14 | disposition home or self-care (01) ==
PROVIDERS: Emergency Provider Nurse Practitioner Family; PCP Registered Nurse
DX: N30.21 Other chronic cystitis with hematuria (principal); B37.89 Other sites of candidiasis; J44.9 Chronic obstructive pulmonary disease, unspecified; F17.210 Nicotine dependence, cigarettes, uncomplicated; Z20.822 Contact with and (suspected) exposure to COVID-19
CPT/HCPCS: 74022; 80053; 81001; 83690; 84703; 85025; 87086; 87635; 96372; 96374; 96375; 99283; J0696; J2270; J2405

== ENCOUNTER 2021-08-06 13:27 | Emergency (ER) | payer MEDICARE, MEDICAID, SELFPAY ==
--- NOTE | 2021-08-06 13:31 | ECG_ITS ---
[facility] Test Date: 2021-08-06 Pat Name: Latesha Wilhelm Department: Room: Gender: Female Clip Riveter: : [id number] Requested By: Garett Chávez Order Number: [id number] Alice MD: Freida Sampson M.D. Measurements Intervals [place] Rate: 72 P: 50 MI: 138 QRS: -6 QRSD: 96 T: 43 QT: 422 QTc: 464 Interpretive Statements SINUS RHYTHM POSSIBLE LEFT ATRIAL ENLARGEMENT [-0.1mV P-WAVE IN V1/V2] Compared to ECG 07/09/2021 16:27:54 No significant changes Electronically Signed On 08-06-2021 15:20:47 REGIONAL LIAISON by Freida Sampson M.D. [id number]
--- NOTE | 2021-08-06 13:31 | XR_ITS ---
WS: [id number] Portable AP upright chest, 08/06/2021 Clinical Data: chest pain Comparison: Portable chest, 07/09/2021. Findings: No nodules, masses or effusions are seen. The heart is normal. The pulmonary vascularity is not increased. No pneumonia or pneumothorax is seen. XR/XR chest 1V portable [id number] Impression: Negative chest.
[2021-08-06 13:35] VITALS: BP 117/69; PULSE 75; RESP 18; TEMP 36.9; O2SAT 96; BMI 32.1
--- NOTE | 2021-08-06 13:58 | ED_ITS ---
HPI - General Adult General: Chief complaint: Chest Pain Stated complaint: chest pain Time Seen by Provider: 08/06/21 13:43 History of Present Illness: CC: Chest Pain HPI: This is a [55] yo patient hx of COPD, smoking and family hx of heart disease presenting to the ED complaining of acute sudden onset intermittent sharp/ occasional squeezing chest pain lasting for a few second at a time since 11:30am this AM with radiation to the back. No associated with shortness of breath, chest pain or dyspnea on exertion. Pain is sharp but not not stabbing or tearing in nature. Pain not associated with vomiting or PO intake. Denies any recent sympathomimetic drug use. Patient denies any cough. Denies palpitations, dysphagia, diaphoresis, radiation of pain to bilateral arms, jaw. Denies F/N/V/D. Patient denies any recent immobility, surgery, unilateral leg swelling, or prior PE. Patient denies any orthopnea. No family hx of aortic disease/aortic aneurysm/Marfan/Erhos-Danlos disease. Onset: 11:30am Duration: ongoing for the last 2 hrs Location: home Severity: moderate Associated symptoms: Reports chest pain; Deny dyspnea, nausea, rash, palpitations or vomiting Review of Systems Const: Denies: fever(s) or chills Eyes: Denies: change in vision ENMT: Denies: mouth pain Card: Reports: chest pain; Denies: palpitations Resp: Denies: dyspnea or non-productive cough GI: Denies: abdominal pain, nausea, vomiting or diarrhea : Denies: dysuria Musc: Denies: extremity pain Skin/Breast: Denies: rash or new lesions Neuro: Denies: weakness in extremities Psych: Reports: other (Normal mood) Wilbur/Lymph: Denies: easy bruising PFSH ED PFSH: Medical History Bladder stone Borderline personality disorder Chronic anxiety Chronic back pain greater than 3 months duration Chronic gastritis without bleeding COPD (chronic obstructive pulmonary disease) Cystitis cystica Dysphagia Esophageal stricture Foreign body in bladder GERD without esophagitis Neurogenic bladder Psychiatric care Restrictive lung disease Schizoaffective disorder, bipolar type Tardive dyskinesia Urgency incontinence Surgical History H/O bladder repair surgery MESH REPAIR H/O colonoscopy with polypectomy H/O esophagogastroduodenoscopy (09/21/20) H/O: hysterectomy History of appendectomy History of breast biopsy History of foot surgery sx in 2009. Screws placed by Dr. Don. History of ureter stent Hx of cholecystectomy S/P bronchoscopy with biopsy Family History Mother No problems noted. Father No problems noted. Other Asthma Cancer Diabetes Heart disease Social History Smoking and tobacco status: current every day smoker cigarettes Years cigarettes smoked: 20 [ Other cigarette details: Hx of 1 PPD x 20 Years] Quit status (tobacco): considering quitting Second hand smoke exposure: Yes Smoking risk assessment/counseling performed?: No Alcohol intake: never Counseling given: No Counseling given: No Lives independently: Yes Household members: spouse Marital status: Number of children: 3 Current occupational status: disabled History of recent travel: No Current gender identity: Female Female Reproductive History: Date of last menstrual period: 06/19/95 Physical Exam Const: COMMON NORMALS: alert HENMT: COMMON NORMALS: atraumatic HEAD & SCALP: atraumatic MOUTH: moist mucous membranes not abnormal Eye: COMMON NORMALS: EOMs intact bilaterally and conjunctivae normal CONJUNCTIVA: Yes conjunctivae normal Neck/C-Spine: COMMON NORMALS: full ROM and supple Resp: COMMON NORMALS: normal respiratory effort and clear to auscultation bilaterally AUSCULTATION: clear to auscultation bilaterally Cardio: COMMON NORMALS: regular rate RATE: regular rate OTHER: 2+ radial pulses b/l GI: COMMON NORMALS: Soft to palpation and non-tender PALPATION: Yes Soft to palpation Extremity: COMMON NORMALS: full ROM Neuro: SENSORIUM/ORIENTATION: Yes alert MOTOR EXAM: No Abnormal motor strength present and Other motor observations present (no focal motor deficits) Psych: COMMON NORMALS: speech normal SPEECH: Yes normal speech MOOD & AFFECT: Yes euthymic mood Course Vital Signs: Vital signs: Vital Signs Temperature 98.4 F 08/06/21 13:35 Pulse Rate 65 08/06/21 14:56 Respiratory Rate 18 08/06/21 14:56 Blood Pressure 117/69 08/06/21 13:35 Pulse Oximetry 96 08/06/21 14:56 MDM - General Adult Medical Decision Making [55]yo patient w/ hx of smoking and family hx of cardiac diseases presenting to the ED with evaluation of new onset sharp chest pain lasting for few seconds at a time since 11:30 am. HDS, pulse 2+ radially bilaterally, no signs of fluid overload, AAOx3, neuro exam intact. Given History and Exam today I have low suspicions for ACS, Pneumothorax, Pneumonia, Pulmonary Embolus, Tamponade, Aortic Dissection or other emergent problems as a cause for this presentation. Will evaluate for differential diagnosis today. Workup: ECG x 2, CXR, CBC, BMP, Troponin x 2, dimer Interventions: morphine 4mg Findings: ECG: No overt evidence of STEMI, hyperacute T waves, localizable STD or T wave inversions. No evidence of Brugada?s sign, delta wave, epsilon wave, significantly prolonged QTc, or malignant arrhythmia. No Q waves. Other Labs unremarkable for emergent problems. CXR: Without PTX, PNA, or widened mediastinum Last Stress Test: never Last Heart Catheterization: never HEART Score 3 (age- 1, nonspeicific repol - 1, risk factors -1) Dimer negative [3:30p,] On reassessment, the patient is HDS, no complaints of persistent chest pain in the ED after evaluation. ECG is non-ischemic. Workup today is unremarkable. Doubt ACS/PE or other emergent causes of chest pain. HEART score fo 3 today, which indicate outpatient management. Doubt ACS/PE or other emergent causes of chest pain. No suspicion for aortic dissection given no widened mediastinum, 2+ upper extremity pulses, or tearing pain. No suspicion for PE given no pleuritic chest pain, recent immobilization or surgery hemoptysis, or other VTE risk factors. EKG is non-ischemic. XR normal. I have given patient follow up with our family service caseworker to be seen by our outpatient Cardiology and PCP for evaluation of chest pain. Patient aware of a call from our family service caseworker to schedule for appointment(s) and verbalizes understanding of the importance of following up. Rx: Tylenol 500mg Q6Hrs x 5 days PRN pain Disposition: Discharge. Strict return precautions discussed with the patient with full understanding. Advised patient to follow up promptly with a primary care provider in 24-48 hrs if the patient has persistent symptoms. Given return instructions for any crushing/tearing chest pain, focal weakness, syncope or any new or concerning issues. Lab Data : 08/06/21 15:01 08/06/21 15:01 Radiology Impressions Chest X-Ray 08/06/21 13:31 Impression: Negative chest. Laboratory Results WBC 9.2 10^3/uL (4.0-10.0) 08/06/21 15:01 RBC 4.16 10^6/uL (4.1-5.3) 08/06/21 15:01 Hgb 13.6 g/dL (11.5-15.3) 08/06/21 15:01 Hct 40.5 % (37.0-47.0) 08/06/21 15: MCV 97.4 fl (81-99) 08/06/21 15:01 MCH 32.7 pg (28.0-34.0) 08/06/21 15:01 MCHC 33.6 g/dL (30.0-36.0) 08/06/21 15: RDW 14.4 % (12.1-15.1) 08/06/21 15:01 Plt Count 199 10^3/cmm (130-400) 08/06/21 15:01 MPV 10.4 fL (7.4-10.4) 08/06/21 15:01 Neut % (Auto) 61.0 % 08/06/21 15:01 Lymph % (Auto) 28.5 % 08/06/21 15:01 Island % (Auto) 8.4 % 08/06/21 15: Eos % (Auto) 0.9 % 08/06/21 15:01 Baso % (Auto) 0.9 % 08/06/21 15:01 Neut # (Auto) 5.59 10^3/uL (1.8-7.7) 08/06/21 15:01 Lymph # (Auto) 2.6 10^3/uL (0.8-4.8) 08/06/21 15:01 Island # (Auto) 0.8 10^3/uL (0.2-0.9) 08/06/21 15:01 Eos # (Auto) 0.1 10^3/uL (0.0-0.8) 08/06/21 15:01 Baso # (Auto) 0.1 10^3/uL (0.0-0.1) 08/06/21 15:01 Nucleated RBC % (auto) 0 % 08/06/21 15:01 Nucleated RBCs # 0.0 /100WBC 08/06/21 15:01 D-Dimer 0.48 ug/mIFEU (0-0.59) 08/06/21 15:01 Sodium 137 mmol/L (136-145) 08/06/21 15:01 Potassium 3.5 mmol/L (3.5-5.1) 08/06/21 15:01 Chloride 105 mmol/L (98-107) 08/06/21 15:01 Carbon Dioxide 22 mmol/L (22-29) 08/06/21 15:01 Anion Gap 13.5 (5-19) 08/06/21 15:01 BUN 12 mg/dL (6-20) 08/06/21 15:01 Creatinine 0.8 mg/dL (0.5-0.9) 08/06/21 15:01 GFR Calculation 75.0 mL/min (90-130) L 08/06/21 15:01 Glucose 82 mg/dL (65-115) 08/06/21 15:01 Calculated Osmolality 283 mOsm/kg (285-295) L 08/06/21 15:01 Calcium 9.0 mg/dL (8.5-10.5) 08/06/21 15:01 Troponin T Baseline 6 ng/L (0-10) 08/06/21 15:01 Troponin T 120 Minute 6.00 ng/L (0-10) 08/06/21 16:51 Delta Troponin T 0 ABS# (0-10) 08/06/21 16:51 Imaging Data Other Imaging: Radiologist's impression: [address] [address] XRay Report Signed Patient: Latesha Wilhelm Unit #: [id number] : 1965 Age/Sex: 55 / F ADM Date: 08/06/21 Loc: ER Room/Bed: Attending Dr: Ordering Provider/Ordering MD: Garett Chávez MD Date of Service: 08/06/21 Procedure(s): XR chest 1V portable [id number] Accession Number(s): [id number] Report Number: [id number] WS: [id number] Portable AP upright chest, 08/06/2021 Clinical Data: chest pain Comparison: Portable chest, 07/09/2021. Findings: No nodules, masses or effusions are seen. The heart is normal. The pulmonary vascularity is not increased. No pneumonia or pneumothorax is seen. XR/XR chest 1V portable [id number] Impression: Negative chest. ? Dictated By: Ann Grider MD Signed By: Ann Grider MD Signed Date/Time: 08/06/211414 DD/ 13 Discharge Plan Discharge Patient Disposition: Home Clinical Impression: Chest pain Condition: Stable Prescriptions: No Action trazodone 300 mg tablet 300 mg PO BEDTIME Qty: 30 1RF Trelegy Ellipta 200-62.5-25 mcg blister with device 1 inh inhalation DAILY Qty: 1 0RF nitrofurantoin monohyd/m-cryst 100 mg capsule 100 mg PO BID 0RF albuterol sulfate 90 mcg/actuation HFA aerosol inhaler 2 puff inhalation Q6H PRN (Reason: shortness of breath or wheezing) 0RF ipratropium-albuterol 0.5 mg-3 mg(2.5 mg base)/3 mL solution for nebulization 3 ml inhalation Q4H PRN (Reason: Shortness Of Breath Or Wheezing) 0RF Hold Instructions: Doctor's Order dicyclomine 20 mg tablet 20 mg PO TID PRN (Reason: abd pain) Qty: 30 0RF ondansetron HCl 4 mg tablet 4 mg PO TID PRN (Reason: Nausea And Vomiting) 0RF acetaminophen [Tylenol Ex Str Rapid Release] 500 mg Tablet 1,000 mg PO Q6H PRN (Reason: Pain) 0RF famotidine 20 mg tablet 20 mg PO QAM 0RF Ingrezza 80 mg capsule 80 mg PO QAM 0RF lamotrigine 200 mg tablet 200 mg PO QAM 0RF citalopram 20 mg tablet 40 mg PO QAM 0RF pantoprazole 40 mg tablet,delayed release (DR/EC) 40 mg PO QAM 0RF nystatin [Nystop] 100,000 unit/gram powder 1 applic topical BID PRN (Reason: unknown) 0RF fluticasone propionate 50 mcg/actuation spray,suspension 1 spray intranasal BID PRN (Reason: Allergy Symptoms) 0RF Discharge Orders: Discharge ED (Routine); Ordered 08/06/21 Ordered By: Garett Chávez Referrals: Dara Tavera FNP [Primary Care Provider] - Discharge Diet: Advance as tolerated Discharge Activity: Increase activity as tolerated Patient Instructions: Chest Pain (ED) Activity Restrictions/Additional Instructions: Come back to the emergency room if your chest pain worsens, have any fever or chills, worsening shortness of breath, worsening exertional lightheadedness, or any new or concerning complaints. Coding Level of Care Code ED Pet Ambassador for Chg Fwd Exam Comprehensive
--- NOTE | 2021-08-06 14:32 | PC.NURSE ---
attempted 2 iv's with out success.
[2021-08-06 14:52] VITALS: RESP 16
[2021-08-06] MEDS: morphine 4 mg/mL SDV 1 mL IVP (14:52)
--- NOTE | 2021-08-06 14:55 | PC.NURSE ---
pt placed on continuous spo2, nibp, and cm.
[2021-08-06 14:56] VITALS: PULSE 65; RESP 18; O2SAT 96
[2021-08-06 15:08] LABS: Basophils # 0.1 10^3/uL (0.0-0.1); Basophils % 0.9 %; Eosinophils # 0.1 10^3/uL (0.0-0.8); Eosinophils % 0.9 %; Hematocrit 40.5 % (37.0-47.0); Hemoglobin 13.6 g/dL (11.5-15.3); Lymphocytes # 2.6 10^3/uL (0.8-4.8); Lymphocytes % 28.5 %; Mean Corpuscular HGB Conc 33.6 g/dL (30.0-36.0); Mean Corpuscular Hemoglobin 32.7 pg (28.0-34.0); Mean Corpuscular Volume 97.4 fl (81-99); Mean Platelet Volume 10.4 fL (7.4-10.4); Monocytes # 0.8 10^3/uL (0.2-0.9); Monocytes % 8.4 %; Neutrophils # 5.59 10^3/uL (1.8-7.7); Nucleated Red Blood Cells % 0 %; Platelet Count 199 10^3/cmm (130-400); Red Blood Count 4.16 10^6/uL (4.1-5.3); Red Cell Distribution Width 14.4 % (12.1-15.1); White Blood Count 9.2 10^3/uL (4.0-10.0)
[2021-08-06 15:25] LABS: Blood Urea Nitrogen 12 mg/dL (6-20)
[2021-08-06 15:31] LABS: Troponin(5th) Baseline 6 ng/L (0-10)
[2021-08-06 15:34] LABS: Anion Gap 13.5 (5-19); Carbon Dioxide 22 mmol/L (22-29); Chloride 105 mmol/L (98-107); Glucose 82 mg/dL (65-115); Osmolality Calculated 283 mOsm/kg (285-295); Potassium 3.5 mmol/L (3.5-5.1); Sodium 137 mmol/L (136-145)
[2021-08-06 16:00] VITALS: BP 145/83; PULSE 62; RESP 15; O2SAT 99
[2021-08-06 16:06] LABS: D Dimer 0.48 ug/mIFEU (0-0.59)
[2021-08-06] MEDS: ondansetron 2 mg/ML SDV 2 mL 4 MG IVP (16:32)
[2021-08-06] MEDS: acetaminophen 500 mg Tablet PO (16:32)
[2021-08-06 17:00] VITALS: BP 125/76; PULSE 64; RESP 21; O2SAT 95
[2021-08-06 17:21] LABS: Troponin 5 2HR Delta 0 ABS# (0-10)
[2021-08-06 18:22] VITALS: BP 122/71; PULSE 63; RESP 16; O2SAT 95
--- NOTE | 2021-08-09 13:31 | DCPLANNER ---
Addendum entered by Dalia Zazueta 09/24/21 08:53: Patient had a follow up with heart care - patient did attend appointment. Addendum entered by Dalia Zazueta 08/09/21 14:25: solutions manager did speak with patient and gave her the appointment information. Original Note: solutions manager had message to schedule a follow up appointment for patient with [facility]. solutions manager called [facility], spoke with Willow, gave clinic patients information. A follow up appointment was scheduled for Monday, September 08, 2021 at 1:[address] Sampson. solutions manager called phone numbers [phone] and [phone], unable to speak with patient or , a voicemail was left for patient to return complex case manager phone call for appointment information.
== END 2021-08-06 18:30 | disposition home or self-care (01) ==
PROVIDERS: Emergency Provider Emergency Medicine; PCP Registered Nurse
DX: R07.9 Chest pain, unspecified (principal); J44.9 Chronic obstructive pulmonary disease, unspecified; F17.210 Nicotine dependence, cigarettes, uncomplicated
CPT/HCPCS: 71045; 80048; 84484; 85025; 85378; 93005; 96374; 96375; 99284; J2270; J2405

== ENCOUNTER → 2021-08-09 07:37 | Outpatient (BNVA) | payer MEDICARE, MEDICAID, SELFPAY | PROVIDERS: PCP Registered Nurse; Visit Provider Nurse Practitioner | DX: F60.3 Borderline personality disorder (principal); F25.0 Schizoaffective disorder, bipolar type | CPT/HCPCS: 99214 ==

== ENCOUNTER 2021-08-26 11:40 | Emergency (ER) | payer MEDICARE, MEDICAID, SELFPAY ==
[2021-08-26 11:43] VITALS: BP 131/79; PULSE 69; RESP 12; O2SAT 99; BMI 31.6
--- NOTE | 2021-08-26 12:11 | ECG_ITS ---
[facility] Test Date: 2021-08-26 Pat Name: Latesha Wilhelm Department: Room: Gender: Female Senior Reliability Engineer: : 1965 Requested By: Bryant River Order Number: [id number] Alice MD: Freida Sampson M.D. Measurements Intervals [place] Rate: 63 P: 51 [place]: 155 QRS: 16 QRSD: 97 T: 29 QT: 438 QTc: 450 Interpretive Statements SINUS RHYTHM Compared to ECG 08/06/2021 13:34:20 No significant changes Electronically Signed On 08-27-2021 5:58:21 CNC PROGRAMMER by Freida Sampson M.D. [email or web address] Pharmaceuticalskettering health [id number]
--- NOTE | 2021-08-26 12:11 | XR_ITS ---
WS: [id number] PORTABLE CHEST HISTORY: chest pain COMPARISON: 08/06/2021 Mild pulmonary hyperinflation. No pneumonia. Normal vasculature. No pleural effusion or pneumothorax. Cardiac size: Normal. Mediastinum/Aorta: Normal mediastinum. No osseous abnormality seen. XR/XR chest 1V portable [id number] IMPRESSION: Mild chronic emphysema. No acute cardiopulmonary disease.
[2021-08-26 12:28] LABS: Basophils # 0.1 10^3/uL (0.0-0.1); Eosinophils # 0.3 10^3/uL (0.0-0.8); Eosinophils % 3.3 %; Hematocrit 45.6 % (37.0-47.0); Hemoglobin 14.5 g/dL (11.5-15.3); Lymphocytes # 2.2 10^3/uL (0.8-4.8); Lymphocytes % 21.6 %; Mean Corpuscular HGB Conc 31.8 g/dL (30.0-36.0); Mean Corpuscular Hemoglobin 32.4 pg (28.0-34.0); Mean Corpuscular Volume 101.8 fl (81-99); Mean Platelet Volume 11.1 fL (7.4-10.4); Monocytes # 0.7 10^3/uL (0.2-0.9); Monocytes % 6.8 %; Neutrophils # 6.68 10^3/uL (1.8-7.7); Nucleated Red Blood Cells % 0 %; Platelet Count 182 10^3/cmm (130-400); Red Blood Count 4.48 10^6/uL (4.1-5.3); Red Cell Distribution Width 14.5 % (12.1-15.1)
[2021-08-26] MEDS: lidocaine 2% viscous 15 ML, aluminum-mag hydrox-simethicon 30 ML, sucralfate oral liq 1 GM PO (12:30)
--- NOTE | 2021-08-26 12:37 | ED_ITS ---
HPI - Chest Pain General: Chief Complaint: Chest Pain Stated Complaint: cp Time Seen by Provider: 08/26/21 11:44 Source: patient Mode of arrival: ambulatory Limitations: no limitations History of Present Illness: 55-year-old female presents emergency room complaining of left upper chest pain. She has had this multiple times in the past she is seen here frequently for chest pain she has had extensive cardiac work-up all of which has been negative pain began while at rest that is reproducible with palpation she is not having diaphoresis nausea or vomiting with it no radiation to the neck or arms. MD complaint: chest pain Onset (ago): hour(s) Timing of current episode: episodic Prior episodes: Yes Onset: during rest Pain location: left chest Pain radiation: none Severity: mild Quality: sharp Relieving factors: nothing Exacerbating factors: palpation Associated symptoms: Deny abdominal pain, diaphoresis, dyspnea, fever(s), leg edema, nausea, palpitations, sense of impending doom, syncope or vomiting Treatment prior to arrival: none Review of Systems Const: Denies: fever(s) or diaphoresis ENMT: Denies: throat pain, ear or mastoid pain, nasal discharge or nasal congestion Card: Denies: palpitations or syncope Resp: Denies: dyspnea GI: Denies: abdominal pain, nausea or vomiting : Denies: flank pain, difficulty voiding, dysuria, urinary frequency or urinary urgency Skin/Breast: Denies: rash or pruritus PFSH ED PFSH: Medical History Bladder stone Borderline personality disorder Chronic anxiety Chronic back pain greater than 3 months duration Chronic gastritis without bleeding COPD (chronic obstructive pulmonary disease) Cystitis cystica Dysphagia Esophageal stricture Foreign body in bladder GERD without esophagitis Neurogenic bladder Psychiatric care Restrictive lung disease Schizoaffective disorder, bipolar type Tardive dyskinesia Urgency incontinence Surgical History H/O bladder repair surgery MESH REPAIR H/O colonoscopy with polypectomy H/O esophagogastroduodenoscopy (09/21/20) H/O: hysterectomy History of appendectomy History of breast biopsy History of foot surgery sx in 2009. Screws placed by Dr. Don. History of ureter stent Hx of cholecystectomy S/P bronchoscopy with biopsy Family History Mother No problems noted. Father No problems noted. Other Asthma Cancer Diabetes Heart disease Social History Smoking and tobacco status: current every day smoker cigarettes Years cigarettes smoked: 20 [ Other cigarette details: Hx of 1 PPD x 20 Years] Quit status (tobacco): considering quitting Second hand smoke exposure: Yes Smoking risk assessment/counseling performed?: No Alcohol intake: never Counseling given: No Counseling given: No Lives independently: Yes Household members: spouse Marital status: Number of children: 3 Current occupational status: disabled History of recent travel: No Current gender identity: Female Female Reproductive History: Date of last menstrual period: 06/19/95 Physical Exam Const: COMMON NORMALS: no acute distress GENERAL APPEARANCE: cooperative and comfortable ORIENTATION/CONSCIOUSNESS: Yes awake, Yes oriented to person, Yes oriented to place and Yes oriented to time HENMT: COMMON NORMALS: normocephalic and atraumatic HEAD & SCALP: normocephalic and atraumatic Neck/C-Spine: COMMON NORMALS: no JVD Resp: COMMON NORMALS: normal respiratory effort, No retractions, No use of a ccessory muscles and clear to auscultation bilaterally AUSCULTATION: clear to auscultation bilaterally Cardio: COMMON NORMALS: no JVD, regular rate, regular rhythm and No murmurs present (Cardio) RATE: regular rate RHYTHM: regular rhythm GI: COMMON NORMALS: Soft to palpation and No hepatosplenomegaly present AUSCULTATION: Yes normoactive bowel sounds PALPATION: Yes Soft to palpation, No Tenderness to palpation present (GI), No Guarding due to palpation present (GI) and Yes No hepatosplenomegaly present Extremity: COMMON NORMALS: normal to inspection, capillary refill normal, no clubbing, cyanosis or edema, no calf tenderness and no pedal edema Neuro: SENSORIUM/ORIENTATION: Yes oriented to person, Yes oriented to place and Yes oriented to time Skin: COMMON NORMALS: no rashes or lesions noted GENERAL SKIN EXAM: no rashes or lesions noted Course Vital Signs: Vital signs: Vital Signs Pulse Rate 69 08/26/21 11:43 Respiratory Rate 12 08/26/21 11:43 Blood Pressure 131/79 08/26/21 11:43 Pulse Oximetry 99 08/26/21 11:43 MDM - Chest Pain Medical Decision Making Reviewed findings with the patient. She has reproducible chest pain with palpation she has had extensive cardiac work-up in the past. She is doing well at this time no specific complaints will discharge home have her follow-up with outpatient cardiology. Medical Records I reviewed the patient's medical records. Lab Data I reviewed the patient's lab results. : 08/26/21 12:15 08/26/21 12:15 Radiology Impressions Chest X-Ray 08/26/21 12:11 IMPRESSION: Mild chronic emphysema. No acute cardiopulmonary disease. Laboratory Results WBC 10.0 10^3/uL (4.0-10.0) 08/26/21 12:15 RBC 4.48 10^6/uL (4.1-5.3) 08/26/21 12:15 Hgb 14.5 g/dL (11.5-15.3) 08/26/21 12:15 Hct 45.6 % (37.0-47.0) 08/26/21 12:15 MCV 101.8 fl (81-99) H 08/26/21 12:15 MCH 32.4 pg (28.0-34.0) 08/26/21 12:15 MCHC 31.8 g/dL (30.0-36.0) 08/26/21 12:15 RDW 14.5 % (12.1-15.1) 08/26/21 12:15 Plt Count 182 10^3/cmm (130-400) 08/26/21 12:15 MPV 11.1 fL (7.4-10.4) H 08/26/21 12:15 Neut % (Auto) 67.0 % 08/26/21 12:15 Lymph % (Auto) 21.6 % 08/26/21 12:15 Power % (Auto) 6.8 % 08/26/21 12:15 Eos % (Auto) 3.3 % 08/26/21 12:15 Baso % (Auto) 1.0 % 08/26/21 12:15 Neut # (Auto) 6.68 10^3/uL (1.8-7.7) 08/26/21 12:15 Lymph # (Auto) 2.2 10^3/uL (0.8-4.8) 08/26/21 12:15 Power # (Auto) 0.7 10^3/uL (0.2-0.9) 08/26/21 12:15 Eos # (Auto) 0.3 10^3/uL (0.0-0.8) 08/26/21 12:15 Baso # (Auto) 0.1 10^3/uL (0.0-0.1) 08/26/21 12:15 Nucleated RBC % (auto) 0 % 08/26/21 12:15 Nucleated RBCs # 0.0 /100WBC 08/26/21 12:15 Pathologist Review Cancelled 08/26/21 12:15 Hypersegmented Polys Cancelled 08/26/21 12:15 Smudge Cells Cancelled 08/26/21 12:15 Toxic Vacuolation Cancelled 08/26/21 12:15 Dohle Bodies Cancelled 08/26/21 12:15 Sailaja Rods Cancelled 08/26/21 12:15 Giant Platelets Cancelled 08/26/21 12:15 Dimorphic RBCs Cancelled 08/26/21 12:15 Polychromasia Cancelled 08/26/21 12:15 Hypochromasia Cancelled 08/26/21 12:15 Poikilocytosis Cancelled 08/26/21 12:15 Basophilic Stippling Cancelled 08/26/21 12:15 Anisocytosis Cancelled 08/26/21 12:15 Microcytosis Cancelled 08/26/21 12:15 Macrocytosis Cancelled 08/26/21 12:15 Spherocytes Cancelled 08/26/21 12:15 Sickle Cells Cancelled 08/26/21 12:15 Target Cells Cancelled 08/26/21 12:15 Tear Drop Cells Cancelled 08/26/21 12:15 Ovalocytes Cancelled 08/26/21 12:15 Stomatocytes Cancelled 08/26/21 12:15 Helmet Cells Cancelled 08/26/21 12:15 Cast[place]eda[place] Bodies Cancelled 08/26/21 12:15 Chelsie Cells Cancelled 08/26/21 12:15 Acanthocytes (Spur) Cancelled 08/26/21 12:15 Rouleaux Cancelled 08/26/21 12:15 Schistocytes Cancelled 08/26/21 12:15 Sodium 140 mmol/L (136-145) 08/26/21 12:15 Potassium 3.9 mmol/L (3.5-5.1) 08/26/21 12:15 Chloride 105 mmol/L (98-107) 08/26/21 12:15 Carbon Dioxide 21 mmol/L (22-29) L 08/26/21 12:15 Anion Gap 17.9 (5-19) 08/26/21 12:15 BUN 14 mg/dL (6-20) 08/26/21 12:15 Creatinine 1.0 mg/dL (0.5-0.9) H 08/26/21 12:15 GFR Calculation 58.0 mL/min (90-130) L 08/26/21 12:15 Glucose 93 mg/dL (65-115) 08/26/21 12:15 Calculated Osmolality 290 mOsm/kg (285-295) 08/26/21 12:15 Calcium 9.7 mg/dL (8.5-10.5) 08/26/21 12:15 Total Bilirubin 0.3 mg/dL (0.15-1.2) 08/26/21 12:15 AST 11 U/L (0-32) 08/26/21 12:15 ALT 7 U/L (0-33) 08/26/21 12:15 Alkaline Phosphatase 124 IU/L (35-105) H 08/26/21 12:15 Troponin T Baseline 6 ng/L (0-10) 08/26/21 12:15 Total Protein 6.0 g/dL (6.6-8.7) L 08/26/21 12:15 Albumin 4.3 g/dL (3.5-5.2) 08/26/21 12:15 Globulin 1.7 g/dL (1.3-4.6) 08/26/21 12:15 Discharge Plan Discharge Patient Disposition: Home Clinical Impression: Anterior chest wall pain Condition: Stable Prescriptions: No Action citalopram 20 mg tablet 40 mg PO QAM Qty: 60 1RF lamotrigine 200 mg tablet 200 mg PO QAM Qty: 30 1RF trazodone 300 mg tablet 300 mg PO BEDTIME Qty: 30 1RF Trelegy Ellipta 200-62.5-25 mcg blister with device See Rx Instructions .ROUTE .COMPLEX Qty: 60 0RF Dose Instruction: INHALE 1 PUFF BY MOUTH DAILY. STOP BREO AND IPRATROPIUM Rx Instructions: INHALE 1 PUFF BY MOUTH DAILY. STOP BREO AND IPRATROPIUM Ingrezza 80 mg capsule 80 mg PO QAM Qty: 30 2RF albuterol sulfate 90 mcg/actuation HFA aerosol inhaler 2 puff inhalation Q6H PRN (Reason: shortness of breath or wheezing) 0RF ipratropium-albuterol 0.5 mg-3 mg(2.5 mg base)/3 mL solution for nebulization 3 ml inhalation Q4H PRN (Reason: Shortness Of Breath Or Wheezing) 0RF Hold Instructions: Doctor's Order ondansetron HCl 4 mg tablet 4 mg PO TID PRN (Reason: Nausea And Vomiting) 0RF acetaminophen [Tylenol Ex Str Rapid Release] 500 mg Tablet 1,000 mg PO Q6H PRN (Reason: Pain) 0RF famotidine 20 mg tablet 20 mg PO QAM 0RF pantoprazole 40 mg tablet,delayed release (DR/EC) 40 mg PO QAM 0RF nystatin [Nystop] 100,000 unit/gram powder 1 applic topical BID PRN (Reason: unknown) 0RF fluticasone propionate 50 mcg/actuation spray,suspension 1 spray intranasal BID PRN (Reason: Allergy Symptoms) 0RF Discharge Orders: Discharge ED (Routine); Ordered 08/26/21 Ordered By: Bryant Whitley Referrals: Dara Tavera FNP [Primary Care Provider] - Discharge Diet: Usual diet Discharge Activity: Increase activity as tolerated Patient Instructions: Opioid Safety Activity Restrictions/Additional Instructions: Follow-up with your primary care doctor as needed. Coding Level of Care Code ED Automatic Folder Seamer for Shellie Fwd Exam Comprehensive
[2021-08-26 12:45] LABS: Alanine Aminotransferase 7 U/L (0-33); Albumin Level 4.3 g/dL (3.5-5.2); Alkaline Phosphatase 124 IU/L (35-105); Blood Urea Nitrogen 14 mg/dL (6-20); Calcium 9.7 mg/dL (8.5-10.5); Carbon Dioxide 21 mmol/L (22-29); Chloride 105 mmol/L (98-107); Globulin 1.7 g/dL (1.3-4.6); Glucose 93 mg/dL (65-115); Osmolality Calculated 290 mOsm/kg (285-295); Sodium 140 mmol/L (136-145); Total Bilirubin 0.3 mg/dL (0.15-1.2)
[2021-08-26 12:46] LABS: Creatinine Clr Calc Pharmacy 70.5331
[2021-08-26 12:47] LABS: Anion Gap 17.9 (5-19); Aspartate Amino Transferase 11 U/L (0-32); Potassium 3.9 mmol/L (3.5-5.1)
[2021-08-26 12:51] LABS: Troponin(5th) Baseline 6 ng/L (0-10)
== END 2021-08-26 14:07 | disposition home or self-care (01) ==
PROVIDERS: Emergency Provider Family Medicine; PCP Registered Nurse
DX: R07.89 Other chest pain (principal); J44.9 Chronic obstructive pulmonary disease, unspecified; F17.210 Nicotine dependence, cigarettes, uncomplicated
CPT/HCPCS: 71045; 80053; 84484; 85025; 93005; 99283

== ENCOUNTER 2021-09-02 14:14 | Emergency (ER) | payer MEDICARE, MEDICAID, SELFPAY ==
[2021-09-02 14:28] VITALS: BP 98/64; PULSE 89; RESP 16; TEMP 36.7; O2SAT 96; BMI 31.2
--- NOTE | 2021-09-02 14:33 | XRR_ITS ---
PROCEDURE INFORMATION: Exam: XR Chest Exam date and time: 09/02/2021 1:44 PM Age: 55 years old Clinical indication: Pain; Shortness of breath; Angina pectoris; Additional info: Chest pain TECHNIQUE: Imaging protocol: XR of the chest. Views: 1 view. COMPARISON: CR XR chest 1V portable [id number] 08/26/2021 12:22 PM FINDINGS: Lungs: Unremarkable. No consolidation. Pleural spaces: Unremarkable. No pleural effusion. No pneumothorax. Heart/Mediastinum: Unremarkable. No cardiomegaly. Bones/joints: Unremarkable. XR/XR chest 1V portable [id number] IMPRESSION: No acute findings.
--- NOTE | 2021-09-02 14:33 | ECG_ITS ---
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 Measurements Intervals [place] Rate: 86 P: 62 DC: 141 QRS: 50 QRSD: 94 T: 45 QT: 379 QTc: 455 Interpretive Statements SINUS RHYTHM Compared to ECG 08/26/2021 13:17:57 No significant changes Electronically Signed On 09-02-2021 21:51:31 CDT by Kenan Sidhu M.D. [id number]
--- NOTE | 2021-09-02 16:33 | ECG_ITS ---
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 Measurements Intervals [place] Rate: 63 P: 60 [place]: 162 QRS: 54 QRSD: 95 T: 42 QT: 436 QTc: 449 Interpretive Statements SINUS RHYTHM WARNING: DATA QUALITY MAY AFFECT INTERPRETATION Compared to ECG 09/02/2021 14:35:00 No significant changes Electronically Signed On 09-02-2021 22:10:06 CDT by Kenan Sidhu M.D. [id number]
--- NOTE | 2021-09-02 17:48 | ED_ITS ---
Documented by User: Severino Najera 09/02/21 17:56 HPI - Chest Pain General: Chief Complaint: Chest Pain Stated Complaint: CHEST PAIN Time Seen by Provider: 09/02/21 15:33 History of Present Illness: 55-year-old female presents to the emergency room department chief complaint of having chest pain she reports she has had intermittent episodes such as this over the last several days patient reports having a prior history of cardiac issue years ago including atrial fibrillation she reports this has not been acting up recently. She reports that the pain was sharp in nature running up the left side of her neck. Patient reports she not take anything for it and when she presented to the ER for further assessment and management she reports no palpitations however she does report a productive cough and moderate shortness of breath with wheezing that has been ongoing for 2 to 3 days patient reports history of lung issues but reports no recent infectio ns or illnesses. Associated symptoms: Reports dyspnea; Deny abdominal pain, fever(s), nausea, palpitations or vomiting Review of Systems General: Reports: 10 or more systems reviewed and unremarkable except in HPI and below Const: Denies: fever(s), chills, fatigue or malaise Eyes: Denies: change in vision or blurry vision Card: Denies: chest pain or palpitations Resp: Reports: dyspnea, productive cough and wheezing GI: Denies: abdominal pain, nausea or vomiting : Denies: flank pain Musc: Denies: extremity pain or extremity swelling Skin/Breast: Denies: rash or pruritus Neuro: Denies: headache(s) Psych: Denies: anxiety or depression Wilbur/Lymph: Denies: easy bleeding All/Imm: Denies: urticaria, throat swelling or facial swelling PFSH ED PFSH: Medical History Bladder stone Borderline personality disorder Chronic anxiety Chronic back pain greater than 3 months duration Chronic gastritis without bleeding COPD (chronic obstructive pulmonary disease) Cystitis cystica Dysphagia Esophageal stricture Foreign body in bladder GERD without esophagitis Neurogenic bladder Psychiatric care Restrictive lung disease Schizoaffective disorder, bipolar type Tardive dyskinesia Urgency incontinence Surgical History H/O bladder repair surgery MESH REPAIR H/O colonoscopy with polypectomy H/O esophagogastroduodenoscopy (09/21/20) H/O: hysterectomy History of appendectomy History of breast biopsy History of foot surgery sx in 2009. Screws placed by Dr. Don. History of ureter stent Hx of cholecystectomy S/P bronchoscopy with biopsy Family History Mother No problems noted. Father No problems noted. Other Asthma Cancer Diabetes Heart disease Social History Smoking and tobacco status: current every day smoker cigarettes Years cigarettes smoked: 20 [ Other cigarette details: Hx of 1 PPD x 20 Years] Quit status (tobacco): considering quitting Second hand smoke exposure: Yes Smoking risk assessment/counseling performed?: No Alcohol intake: never Counseling given: No Counseling given: No Lives independently: Yes Household members: spouse Marital status: Number of children: 3 Current occupational status: disabled History of recent travel: No Current gender identity: Female Female Reproductive History: Date of last menstrual period: 06/19/95 Physical Exam Const: COMMON NORMALS: no acute distress, patient oriented x3 and healthy appearing HENMT: COMMON NORMALS: normocephalic and atraumatic HEAD & SCALP: normocephalic and atraumatic Eye: COMMON NORMALS: Equal, round and reactive pupils present and EOMs intact bilaterally PUPIL: Yes Equal, round and reactive pupils present Neck/C-Spine: COMMON NORMALS: full ROM, supple and no JVD Lymph: LYMPHATIC: no lymphadenopathy noted Chest: COMMONS NORMALS: normal inspection of the chest and normal palpation of entire chest wall Resp: OTHER: Moderate expiratory wheeze noted bilaterally mild tachypnea. Cardio: COMMON NORMALS: no JVD, regular rate and regular rhythm RATE: regular rate RHYTHM: regular rhythm GI: COMMON NORMALS: Normal to inspection, nondistended, normoactive bowel sounds present, Soft to palpation and non-tender INSPECTION: Yes normal to inspection PALPATION: Yes Soft to palpation : COMMON NORMALS: Yes no CVA tenderness BLADDER/KIDNEY EXAM: Yes no CVA tenderness Back/Pelvis: COMMON NORMALS: no CVA tenderness Extremity: COMMON NORMALS: normal to inspection and full ROM Neuro: COMMON NORMALS: patient oriented x3, CN's II-XII intact bilaterally, moves all extremities and no focal motor deficits Psych: COMMON NORMALS: mental status grossly normal, Normal thought process present, cooperative and normal affect THOUGHT PROCESS: Normal thought process present Skin: COMMON NORMALS: no rashes or lesions noted GENERAL SKIN EXAM: no sheyla hes or lesions noted Course Vital Signs: Vital signs: Vital Signs Temperature 98.1 F 09/02/21 14:28 Pulse Rate 75 09/02/21 20:10 Respiratory Rate 17 09/02/21 21:07 Blood Pressure 119/84 09/02/21 21:07 Pulse Oximetry 99 09/02/21 20:10 MDM - Chest Pain Medical Decision Making Due to the patient's symptom condition will be obtained we will continue to follow. Lab Data : 09/02/21 17:49 09/02/21 17:49 Radiology Impressions Chest X-Ray 09/02/21 14:33 IMPRESSION: No acute findings. Laboratory Results WBC 11.6 10^3/uL (4.0-10.0) H 09/02/21 17:49 RBC 4.67 10^6/uL (4.1-5.3) 09/02/21 17:49 Hgb 15.0 g/dL (11.5-15.3) 09/02/21 17:49 Hct 46.9 % (37.0-47.0) 09/02/21 17:49 MCV 100.4 fl (81-99) H 09/02/21 17:49 MCH 32.1 pg (28.0-34.0) 09/02/21 17:49 MCHC 32.0 g/dL (30.0-36.0) 09/02/21 17:49 RDW 14.5 % (12.1-15.1) 09/02/21 17:49 Plt Count 188 10^3/cmm (130-400) 09/02/21 17:49 MPV 11.1 fL (7.4-10.4) H 09/02/21 17:49 Neut % (Auto) 67.3 % 09/02/21 17:49 Lymph % (Auto) 22.3 % 09/02/21 17:49 [place] % (Auto) 7.1 % 09/02/21 17:49 Eos % (Auto) 2.2 % 09/02/21 17:49 Baso % (Auto) 0.8 % 09/02/21 17:49 Neut # (Auto) 7.82 10^3/uL (1.8-7.7) H 09/02/21 17:49 Lymph # (Auto) 2.6 10^3/uL (0.8-4.8) 09/02/21 17:49 [place] # (Auto) 0.8 10^3/uL (0.2-0.9) 09/02/21 17:49 Eos # (Auto) 0.3 10^3/uL (0.0-0.8) 09/02/21 17:49 Baso # (Auto) 0.1 10^3/uL (0.0-0.1) 09/02/21 17:49 Nucleated RBC % (auto) 0 % 09/02/21 17:49 Nucleated RBCs # 0.0 /100WBC 09/02/21 17:49 D-Dimer 0.31 ug/mIFEU (0-0.59) 09/02/21 18:26 Sodium 140 mmol/L (136-145) 09/02/21 17:49 Potassium 4.0 mmol/L (3.5-5.1) 09/02/21 17:49 Chloride 106 mmol/L (98-107) 09/02/21 17:49 Carbon Dioxide 21 mmol/L (22-29) L 09/02/21 17:49 Anion Gap 17.0 (5-19) 09/02/21 17:49 BUN 14 mg/dL (6-20) 09/02/21 17:49 Creatinine 1.2 mg/dL (0.5-0.9) H 09/02/21 17:49 GFR Calculation 47.0 mL/min (90-130) L 09/02/21 17:49 Glucose 93 mg/dL (65-115) 09/02/21 17:49 Calculated Osmolality 290 mOsm/kg (285-295) 09/02/21 17:49 Calcium 9.5 mg/dL (8.5-10.5) 09/02/21 17:49 Troponin T Baseline 6 ng/L (0-10) 09/02/21 17:49 Troponin T 120 Minute 6.00 ng/L (0-10) 09/02/21 19:19 Delta Troponin T 0 ABS# (0-10) 09/02/21 19:19 Discharge Plan Discharge Patient Disposition: Home Clinical Impression: Chest pain, COPD (chronic obstructive pulmonary disease) Condition: Stable Prescriptions: New prednisone 50 mg tablet 50 mg PO DAILY 5 Days Qty: 5 0RF azithromycin 250 mg tablet See Rx Instructions .ROUTE .COMPLEX Qty: 6 0RF Rx Instructions: For 250 mg dose pack: take 500 mg today (day 1), then 250 mg for 4 days (days 2-5) No Action citalopram 20 mg tablet 40 mg PO QAM Qty: 60 1RF lamotrigine 200 mg tablet 200 mg PO QAM Qty: 30 1RF trazodone 300 mg tablet 300 mg PO BEDTIME Qty: 30 1RF Trelegy Ellipta 200-62.5-25 mcg blister with device See Rx Instructions .ROUTE .COMPLEX Qty: 60 0RF Dose Instruction: INHALE 1 PUFF BY MOUTH DAILY. STOP BREO AND IPRATROPIUM Rx Instructions: INHALE 1 PUFF BY MOUTH DAILY. STOP BREO AND IPRATROPIUM Ingrezza 80 mg capsule 80 mg PO QAM Qty: 30 2RF albuterol sulfate 90 mcg/actuation HFA aerosol inhaler 2 puff inhalation Q6H PRN (Reason: shortness of breath or wheezing) 0RF ipratropium-albuterol 0.5 mg-3 mg(2.5 mg base)/3 mL solution for nebulization 3 ml inhalation Q4H PRN (Reason: Shortness Of Breath Or Wheezing) 0RF Hold Instructions: Doctor's Order ondansetron HCl 4 mg tablet 4 mg PO TID PRN (Reason: Nausea And Vomiting) 0RF acetaminophen [Tylenol Ex Str Rapid Release] 500 mg Tablet 1,000 mg PO Q6H PRN (Reason: Pain) 0RF famotidine 20 mg tablet 20 mg PO QAM 0RF pantoprazole 40 mg tablet,delayed release (DR/EC) 40 mg PO QAM 0RF nystatin [Nystop] 100,000 unit/gram powder 1 applic topical BID PRN (Reason: unknown) 0RF fluticasone propionate 50 mcg/actuation spray,suspension 1 spray intranasal BID PRN (Reason: Allergy Symptoms) 0RF Discharge Orders: Discharge ED (Routine); Ordered 09/02/21 Ordered By: Anshul Amse Referrals: Dara Tavera, PINMAKER [Primary Care Provider] - Discharge Diet: Usual diet Discharge Activity: Resume usual activity Patient Instructions: Chest Pain (ED), COPD (Chronic Obstructive Pulmonary Disease) (ED), Opioid Safety Activity Restrictions/Additional Instructions: Thank you for visiting the emergency department. You were seen and evaluated for chest pain. The exact cause of your symptoms is unclear however we did not find evidence of damage to your heart or evidence of blood clot. Some symptoms may be related to exacerbation of underlying lung condition and you were given medications for this. Please follow-up with your primary care provider. Please ensure that you go to your cardiology follow-up. Please return to the emergency department for anything else that you are concerned about and feel needs emergency department evaluation. Sign Out Sign Out Data: Patient Sign Out occurred on 09/02/21 at 18:15. Patient's care was discussed, and care was transferred from to Anshul Ames MD. Post-Handoff Eval: Patient care handoff received from Dr. Najera pending completion of ED evaluation and reassessment of patient. Mild leukocytosis noted. D-dimer negative. Metabolic panel without acute derangement to explain patient's symptoms, likely mild dehydration present. Delta troponin and initial troponin are negative. Chest x-ray with no acute finding. Upon reassessment patient she did note improvement in breathing however still had some discomfort. She had improvement with additional medications and expressed desire to be discharged. I discussed results of ED evaluation with the patient. Symptom treatments, follow-up plan, return precautions discussed. Patient verbalized understanding and felt safe for discharge. Anshul Ames MD Emergency Medicine Coding Level of Care Code ED Legal Services Professional for Chg Fwd Exam Comprehensive
[2021-09-02 18:02] LABS: Basophils # 0.1 10^3/uL (0.0-0.1); Basophils % 0.8 %; Eosinophils # 0.3 10^3/uL (0.0-0.8); Eosinophils % 2.2 %; Hematocrit 46.9 % (37.0-47.0); Lymphocytes # 2.6 10^3/uL (0.8-4.8); Lymphocytes % 22.3 %; Mean Corpuscular Hemoglobin 32.1 pg (28.0-34.0); Mean Corpuscular Volume 100.4 fl (81-99); Mean Platelet Volume 11.1 fL (7.4-10.4); Monocytes # 0.8 10^3/uL (0.2-0.9); Monocytes % 7.1 %; Neutrophils # 7.82 10^3/uL (1.8-7.7); Neutrophils % 67.3 %; Nucleated Red Blood Cells % 0 %; Platelet Count 188 10^3/cmm (130-400); Red Blood Count 4.67 10^6/uL (4.1-5.3); Red Cell Distribution Width 14.5 % (12.1-15.1); White Blood Count 11.6 10^3/uL (4.0-10.0)
[2021-09-02] MEDS: ipratropium-albuterol 3 mL Neb INHALATION (18:08)
[2021-09-02 18:09] VITALS: PULSE 63; RESP 17; O2SAT 96
[2021-09-02 18:13] VITALS: PULSE 73
[2021-09-02 18:43] LABS: Blood Urea Nitrogen 14 mg/dL (6-20); Calcium 9.5 mg/dL (8.5-10.5); Carbon Dioxide 21 mmol/L (22-29); Chloride 106 mmol/L (98-107); Glucose 93 mg/dL (65-115); Osmolality Calculated 290 mOsm/kg (285-295); Sodium 140 mmol/L (136-145)
[2021-09-02 19:01] LABS: Troponin(5th) Baseline 6 ng/L (0-10)
[2021-09-02 19:20] LABS: D Dimer 0.31 ug/mIFEU (0-0.59)
[2021-09-02 19:29] VITALS: RESP 15
[2021-09-02] MEDS: morphine 4 mg/mL SDV 1 mL IVP (19:29)
[2021-09-02 20:08] LABS: Troponin 5 2HR Delta 0 ABS# (0-10)
[2021-09-02 20:10] VITALS: PULSE 75; RESP 16; O2SAT 99
[2021-09-02] MEDS: acetaminophen 500 mg Tablet 1000 MG PO (20:21)
[2021-09-02] MEDS: lidocaine 2% viscous 15 ML, aluminum-mag hydrox-simethicon 30 ML, sucralfate oral liq 1 GM PO (20:22)
[2021-09-02 21:07] VITALS: BP 119/84; RESP 17
== END 2021-09-02 21:11 | disposition home or self-care (01) ==
PROVIDERS: Emergency Medicine; Emergency Provider Emergency Medicine; PCP Registered Nurse
DX: R07.9 Chest pain, unspecified (principal); J44.9 Chronic obstructive pulmonary disease, unspecified; F17.210 Nicotine dependence, cigarettes, uncomplicated
CPT/HCPCS: 36415; 71045; 80048; 84484; 85025; 85378; 93005; 94640; 96374; 96375; 99284; J2270; J2930; J7611

== ENCOUNTER 2021-09-05 18:49 | Emergency (ER) | payer MEDICARE, MEDICAID, SELFPAY ==
[2021-09-05 19:13] VITALS: BP 96/65; PULSE 87; RESP 16; TEMP 36.8; O2SAT 95; BMI 31.1
[2021-09-05 21:15] LABS: Basophils % 0.2 %; Eosinophils % 0.1 %; Hematocrit 48.4 % (37.0-47.0); Hemoglobin 16.3 g/dL (11.5-15.3); Lymphocytes % 21.7 %; Mean Corpuscular HGB Conc 33.7 g/dL (30.0-36.0); Mean Corpuscular Hemoglobin 32.3 pg (28.0-34.0); Mean Platelet Volume 10.9 fL (7.4-10.4); Monocytes # 0.9 10^3/uL (0.2-0.9); Monocytes % 6.7 %; Neutrophils # 9.75 10^3/uL (1.8-7.7); Neutrophils % 70.6 %; Nucleated Red Blood Cells % 0 %; Platelet Count 230 10^3/cmm (130-400); Red Blood Count 5.04 10^6/uL (4.1-5.3); Red Cell Distribution Width 14.4 % (12.1-15.1); White Blood Count 13.8 10^3/uL (4.0-10.0)
--- NOTE | 2021-09-05 21:27 | ED_ITS ---
HPI - Abdominal Pain General: Chief Complaint: Abdominal Pain Stated Complaint: ABD PAIN; N/V Time Seen by Provider: 09/05/21 20:52 Source: patient and EMS Mode of arrival: EMS Limitations: no limitations History of Present Illness: 55-year-old female who has a history of chronic abdominal pain states she started having vomiting diarrhea since this morning. States she had some diffuse cramping as well she taken her Zofran and Imodium with minimal relief. States pain is diffuse and rates it a 2 out of 10 denies any worsening improving factors. Associated Symptoms: Reports nausea and vomiting; Denies chills, dysuria and fever(s) Related Data: Date of Last Menstrual Period: 06/19/95 Review of Systems Const: Denies: fever(s), chills, body aches or change in appetite Eyes: Denies: blurry vision or eye discomfort ENMT: Denies: throat pain or dental pain Card: Denies: chest pain Resp: Denies: dyspnea GI: Reports: abdominal pain, nausea and vomiting : Denies: dysuria Musc: Denies: neck pain or back pain Skin/Breast: Denies: rash Neuro: Denies: headache(s) Psych: Denies: depression Wilbur/Lymph: Denies: easy bruising All/Imm: Denies: urticaria PFSH ED PFSH: Medical History Bladder stone Borderline personality disorder Chronic anxiety Chronic back pain greater than 3 months duration Chronic gastritis without bleeding COPD (chronic obstructive pulmonary disease) Cystitis cystica Dysphagia Esophageal stricture Foreign body in bladder GERD without esophagitis Neurogenic bladder Psychiatric care Restrictive lung disease Schizoaffective disorder, bipolar type Tardive dyskinesia Urgency incontinence Surgical History H/O bladder repair surgery MESH REPAIR H/O colonoscopy with polypectomy H/O esophagogastroduodenoscopy (09/21/20) H/O: hysterectomy History of appendectomy History of breast biopsy History of foot surgery sx in 2009. Screws placed by Dr. Don. History of ureter stent Hx of cholecystectomy S/P bronchoscopy with biopsy Family History Mother No problems noted. Father No problems noted. Other Asthma Cancer Diabetes Heart disease Social History Smoking and tobacco status: current every day smoker cigarettes Years cigarettes smoked: 20 [ Other cigarette details: Hx of 1 PPD x 20 Years] Quit status (tobacco): considering quitting Second hand smoke exposure: Yes Smoking risk assessment/counseling performed?: No Alcohol intake: never Counseling given: No Counseling given: No Lives independently: Yes Household members: spouse Marital status: Number of children: 3 Current occupational status: disabled History of recent travel: No Current gender identity: Female Female Reproductive History: Date of last menstrual period: 06/19/95 Physical Exam Const: COMMON NORMALS: no acute distress, patient oriented x3 and healthy appearing HENMT: COMMON NORMALS: normocephalic and atraumatic HEAD & SCALP: normocephalic and atraumatic Eye: COMMON NORMALS: Equal, round and reactive pupils present and EOMs intact bilaterally PUPIL: Yes Equal, round and reactive pupils present Neck/C-Spine: COMMON NORMALS: full ROM and supple Chest: COMMONS NORMALS: normal inspection of the chest and normal palpation of entire chest wall Resp: COMMON NORMALS: normal respiratory effort, No retractions, No use of accessory muscles and clear to auscultation bilaterally AUSCULTATION: clear to auscultation bilaterally Cardio: COMMON NORMALS: regular rate, regular rhythm and No murmurs present (Cardio) RATE: regular rate RHYTHM: regular rhythm GI: COMMON NORMALS: Normal to inspection, nondistended, normoactive bowel sounds present, Soft to palpation, non-tender and no masses PALPATION: Yes Soft to palpation Extremity: COMMON NORMALS: normal to inspection and full ROM Neuro: COMMON NORMALS: patient oriented x3, moves all extremities and no focal motor deficits Psych: COMMON NORMALS: mental status grossly normal, Normal thought process present and cooperative THOUGHT PROCESS: Normal thought process present Skin: COMMON NORMALS: no rashes or lesions noted and no wounds GENERAL SKIN EXAM: no rashes or lesions noted Course Vital Signs: Vital signs: Vital Signs Temperature 98.2 F 09/05/21 19:13 Pulse Rate 87 09/05/21 19:13 Respiratory Rate 18 09/05/21 21:37 Blood Pressure 96/65 09/05/21 19:13 Pulse Oximetry 95 09/05/21 19:13 MDM - Abdominal Pain Medical Decision Making Patient presents here with abdominal pain is chronic in nature she feels much improved here after meds blood works normal abdominal exam is benign we will p rescribe her Reglan she stable for discharge return if worsening. Lab Data : 09/05/21 21:09 09/05/21 21:09 Labs/Radiology: Laboratory Results WBC 13.8 10^3/uL (4.0-10.0) H 09/05/21 21:09 RBC 5.04 10^6/uL (4.1-5.3) 09/05/21 21:09 Hgb 16.3 g/dL (11.5-15.3) H 09/05/21 21:09 Hct 48.4 % (37.0-47.0) H 09/05/21 21:09 MCV 96.0 fl (81-99) 09/05/21 21:09 MCH 32.3 pg (28.0-34.0) 09/05/21 21:09 MCHC 33.7 g/dL (30.0-36.0) 09/05/21 21:09 RDW 14.4 % (12.1-15.1) 09/05/21 21:09 Plt Count 230 10^3/cmm (130-400) 09/05/21 21:09 MPV 10.9 fL (7.4-10.4) H 09/05/21 21:09 Neut % (Auto) 70.6 % 09/05/21 21:09 Lymph % (Auto) 21.7 % 09/05/21 21:09 [place] % (Auto) 6.7 % 09/05/21 21:09 Eos % (Auto) 0.1 % 09/05/21 21:09 Baso % (Auto) 0.2 % 09/05/21 21:09 Neut # (Auto) 9.75 10^3/uL (1.8-7.7) H 09/05/21 21:09 Lymph # (Auto) 3.0 10^3/uL (0.8-4.8) 09/05/21 21:09 [place] # (Auto) 0.9 10^3/uL (0.2-0.9) 09/05/21 21:09 Eos # (Auto) 0.0 10^3/uL (0.0-0.8) 09/05/21 21:09 Baso # (Auto) 0.0 10^3/uL (0.0-0.1) 09/05/21 21:09 Nucleated RBC % (auto) 0 % 09/05/21 21:09 Nucleated RBCs # 0.0 /100WBC 09/05/21 21:09 Sodium 138 mmol/L (136-145) 09/05/21 21:09 Potassium 4.2 mmol/L (3.5-5.1) 09/05/21 21:09 Chloride 102 mmol/L (98-107) 09/05/21 21:09 Carbon Dioxide 25 mmol/L (22-29) 09/05/21 21:09 Anion Gap 15.2 (5-19) 09/05/21 21:09 BUN 26 mg/dL (6-20) H 09/05/21 21:09 Creatinine 1.2 mg/dL (0.5-0.9) H 09/05/21 21:09 GFR Calculation 47.0 mL/min (90-130) L 09/05/21 21:09 Glucose 115 mg/dL (65-115) 09/05/21 21:09 Calculated Osmolality 292 mOsm/kg (285-295) 09/05/21 21:09 Calcium 10.1 mg/dL (8.5-10.5) 09/05/21 21:09 Total Bilirubin 0.2 mg/dL (0.15-1.2) 09/05/21 21:09 AST 9 U/L (0-32) 09/05/21 21:09 ALT 6 U/L (0-33) 09/05/21 21:09 Alkaline Phosphatase 126 IU/L (35-105) H 09/05/21 21:09 Total Protein 7.4 g/dL (6.6-8.7) 09/05/21 21:09 Albumin 4.7 g/dL (3.5-5.2) 09/05/21 21:09 Globulin 2.7 g/dL (1.3-4.6) 09/05/21 21:09 Lipase 21 U/L (13-60) 09/05/21 21:09 Discharge Plan Discharge Patient Disposition: Home Clinical Impression: Vomiting Abdominal pain Qualifiers: Abdominal location: generalized Qualified Code(s): R10.84 - Generalized abdominal pain Condition: Stable Prescriptions: New ondansetron 4 mg tablet,disintegrating 4 mg PO Q6H PRN (Reason: nausea and vomiting) Qty: 14 0RF No Action citalopram 20 mg tablet 40 mg PO QAM Qty: 60 1RF lamotrigine 200 mg tablet 200 mg PO QAM Qty: 30 1RF trazodone 300 mg tablet 300 mg PO BEDTIME Qty: 30 1RF Trelegy Ellipta 200-62.5-25 mcg blister with device See Rx Instructions .ROUTE .COMPLEX Qty: 60 0RF Dose Instruction: INHALE 1 PUFF BY MOUTH DAILY. STOP BREO AND IPRATROPIUM Rx Instructions: INHALE 1 PUFF BY MOUTH DAILY. STOP BREO AND IPRATROPIUM Ingrezza 80 mg capsule 80 mg PO QAM Qty: 30 2RF prednisone 50 mg tablet 50 mg PO DAILY 5 Days Qty: 5 0RF azithromycin 250 mg tablet See Rx Instructions .ROUTE .COMPLEX Qty: 6 0RF Rx Instructions: For 250 mg dose pack: take 500 mg today (day 1), then 250 mg for 4 days (days 2-5) albuterol sulfate 90 mcg/actuation HFA aerosol inhaler 2 puff inhalation Q6H PRN (Reason: shortness of breath or wheezing) 0RF ipratropium-albuterol 0.5 mg-3 mg(2.5 mg base)/3 mL solution for nebulization 3 ml inhalation Q4H PRN (Reason: Shortness Of Breath Or Wheezing) 0RF Hold Instructions: Doctor's Order ondansetron HCl 4 mg tablet 4 mg PO TID PRN (Reason: Nausea And Vomiting) 0RF acetaminophen [Tylenol Ex Str Rapid Release] 500 mg Tablet 1,000 mg PO Q6H PRN (Reason: Pain) 0RF famotidine 20 mg tablet 20 mg PO QAM 0RF pantoprazole 40 mg tablet,delayed release (DR/EC) 40 mg PO QAM 0RF nystatin [Nystop] 100,000 unit/gram powder 1 applic topical BID PRN (Reason: unknown) 0RF fluticasone propionate 50 mcg/actuation spray,suspension 1 spray intranasal BID PRN (Reason: Allergy Symptoms) 0RF Discharge Orders: Discharge ED (Routine); Ordered 09/05/21 Ordered By: Damien Urbina Referrals: Dara Tavera, AMANDEEP [Primary Care Provider] - Discharge Diet: Advance as tolerated Discharge Activity: Resume usual activity Patient Instructions: Abdominal Pain (ED) Coding Level of Care Code ED Interlocking Pavement Installer for Chg Fwd Exam Comprehensive
[2021-09-05 21:37] VITALS: RESP 18
[2021-09-05 21:37] LABS: Alanine Aminotransferase 6 U/L (0-33); Albumin Level 4.7 g/dL (3.5-5.2); Alkaline Phosphatase 126 IU/L (35-105); Aspartate Amino Transferase 9 U/L (0-32); Blood Urea Nitrogen 26 mg/dL (6-20); Calcium 10.1 mg/dL (8.5-10.5); Carbon Dioxide 25 mmol/L (22-29); Chloride 102 mmol/L (98-107); Globulin 2.7 g/dL (1.3-4.6); Glucose 115 mg/dL (65-115); Lipase 21 U/L (13-60); Osmolality Calculated 292 mOsm/kg (285-295); Sodium 138 mmol/L (136-145); Total Bilirubin 0.2 mg/dL (0.15-1.2); Total Protein 7.4 g/dL (6.6-8.7)
[2021-09-05] MEDS: morphine 4 mg/mL SDV 1 mL IVP (21:37)
[2021-09-05] MEDS: ondansetron 2 mg/ML SDV 2 mL 4 MG IVP (21:38)
[2021-09-05 21:40] LABS: Anion Gap 15.2 (5-19); Potassium 4.2 mmol/L (3.5-5.1)
[2021-09-05] MEDS: sodium chloride 0.9% 1,000 ML 999 ML IV (22:15)
[2021-09-05] MEDS: diphenoxylate/atropine Tablet 1 TAB PO (22:15)
[2021-09-05 23:14] VITALS: BP 116/62; PULSE 67; RESP 18; O2SAT 93
== END 2021-09-05 23:16 | disposition home or self-care (01) ==
PROVIDERS: Emergency Provider Emergency Medicine; PCP Registered Nurse
DX: R10.84 Generalized abdominal pain (principal); R11.11 Vomiting without nausea; J44.9 Chronic obstructive pulmonary disease, unspecified; F17.210 Nicotine dependence, cigarettes, uncomplicated
CPT/HCPCS: 80053; 83690; 85025; 96361; 96374; 96375; 99283; J2270; J2405; J7030

== ENCOUNTER → 2021-09-10 08:50 | Outpatient (BNVA) | payer MEDICARE, MEDICAID, SELFPAY | PROVIDERS: PCP Registered Nurse; Visit Provider Internal Medicine Critical Care Medicine | DX: J41.0 Simple chronic bronchitis (principal); J96.11 Chronic respiratory failure with hypoxia; K21.9 Gastro-esophageal reflux disease without esophagitis; F41.8 Other specified anxiety disorders; F17.210 Nicotine dependence, cigarettes, uncomplicated | CPT/HCPCS: 99214 ==

== ENCOUNTER 2021-09-22 09:57 | Emergency (ER) | payer MEDICARE, MEDICAID, SELFPAY ==
[2021-09-22 10:50] VITALS: BP 97/66; PULSE 80; RESP 16; TEMP 36.5; O2SAT 96; BMI 31.1
--- NOTE | 2021-09-22 11:00 | ED_ITS ---
HPI - Chest Pain General: Chief Complaint: Chest Pain Stated Complaint: chest pain Time Seen by Provider: 09/22/21 11:00 History of Present Illness: Ms. Wilhelm is a 55-year-old lady with complex past medical history who presents to the emergency department due to chest pain. She has chest pain somewhat frequently. She endorses onset of symptoms approximately 7 AM while she was doing dishes. She denies specific movements that provoked this. She endorses sharp chest pain in the middle of her chest which radiates to the right arm. Intensity is moderate to severe. She does not e nausea with it. No other typical cardiac features. No other specific changes in health, exacerbating, or alleviating factors identified. She reports compliance with her medication regimen. She recalls that she had a cardiac cath which was reportedly negative last November in [place]. Patient took 324 mg of aspirin this morning. Onset (ago): hour(s) Timing of current episode: constant Prior episodes: Yes Pain location: substernal Pain radiation: right arm Severity: severe Quality: sharp Review of Systems General: Reports: 10 or more systems reviewed and unremarkable except in HPI and below PFSH ED PFSH: Medical History Bladder stone Borderline personality disorder Chronic anxiety Chronic back pain greater than 3 months duration Chronic gastritis without bleeding COPD (chronic obstructive pulmonary disease) Cystitis cystica Dysphagia Esophageal stricture Foreign body in bladder GERD without esophagitis Neurogenic bladder Psychiatric care Restrictive lung disease Schizoaffective disorder, bipolar type Tardive dyskinesia Urgency incontinence Surgical History H/O bladder repair surgery MESH REPAIR H/O colonoscopy with polypectomy H/O esophagogastroduodenoscopy (09/21/20) H/O: hysterectomy History of appendectomy History of breast biopsy History of foot surgery sx in 2009. Screws placed by Dr. Don. History of ureter stent Hx of cholecystectomy S/P bronchoscopy with biopsy Family History Mother No problems noted. Father No problems noted. Other Asthma Cancer Diabetes Heart disease Social History Smoking and tobacco status: current every day smoker (0.5 ppd, started at age 27) cigarettes Packs smoked per day: 1 Years cigarettes smoked: 20 [ Other cigarette details: Hx of 1 PPD x 20 Years, started at age 27] Quit status (tobacco): considering quitting Second hand smoke exposure: Yes Smoking risk assessment/counseling performed?: No Alcohol intake: never Counseling given: No Counseling given: No Lives independently: Yes Household members: spouse Marital status: Number of children: 3 Current occupational status: disabled History of recent travel: No Current gender identity: Female Female Reproductive History: Date of last menstrual period: 06/19/95 Physical Exam Const: COMMON NORMALS: alert GENERAL APPEARANCE: cooperative and well developed HENMT: COMMON NORMALS: normocephalic and atraumatic HEAD & SCALP: normocep halic and atraumatic Eye: COMMON NORMALS: conjunctivae normal CONJUNCTIVA: Yes conjunctivae normal SCLERA: sclerae normal Neck/C-Spine: COMMON NORMALS: supple GENERAL: Yes trachea midline Resp: EFFORT & INSPECTION: Yes able to speak in complete sentences AUSCULTATION: wheezes (End expiratory, trace) Cardio: COMMON NORMALS: regular rate and regular rhythm RATE: regular rate RHYTHM: regular rhythm GI: COMMON NORMALS: Soft to palpation PALPATION: Yes Soft to palpation and No Tenderness to palpation present (GI) Extremity: GENERAL: Yes normal exam except as noted and No edema Neuro: COMMON NORMALS: moves all extremities SENSORIUM/ORIENTATION: Yes alert and No Orientation impaired Psych: COMMON NORMALS: mental status grossly normal and Normal thought process present THOUGHT PROCESS: Normal thought process present Course ED course: - Patient was seen and evaluated by me at bedside - Patient placed on cardiac monitors, IV access obtained - Initial evaluation notable for exam as above - Labs and xrays personally interpreted by me. EKG from 1048 personally interpreted by me. Sinus rhythm. No STEMI. - Symptom treatment ordered - Labs notable for no acute hematologic or metabolic abnormalities to explain symptoms. Troponin negative. - Imaging notable for no lobar consolidation or pneumothorax. - Upon serial reexamination after treatment the patient was improved with complete resolution of symptoms. - Based on patient history, evaluation, and testing as interpreted the most likely cause of the patient's condition is chest pain of uncertain etiology. Challenging situation as the patient has multiple presentations for similar to the emergency department. She apparently missed her cardiology follow-up appointment due to thinking it was either in place of the appointment with Dr. Bray or on the same day. She does have a rescheduled visit appointment for pain. Review of outside records scanned from 11/25/2020 from cardiac cath performed at [place] in [place] shows no significant cardiac disease. Therefore I do not feel that patient requires admission for further cardiac evaluation and recommended continued outpatient therapy. - The results of ED evaluation were discussed with the patient including prescriptions and/or symptomatic cares (if applicable) including appropriate and responsible use, followup plan, and return precautions. The patient verbalized understanding and felt safe for discharge. - Patient discharged in satisfactory condition. Note: Click bubbles or prepopulated cortes in note writing are used for assistance with data collection and billing and are inherently more limited than narrative and other text portions of this note. Please use narrative for additional clinical history and defer to narrative/free test for any case of contradictory information. If information appears in only free text or click bubble it should be considered present or absent as reported. Please contact note teletypewriter installer for clarifications of clinical information or contradictory information. MDM is a brief summary, contradictory or erroneous seeming information should be clarified and full note should be reviewed. Vital Signs: Vital signs: Vital Signs Temperature 97.7 F 09/22/21 10:50 Pulse Rate 63 09/22/21 13:27 Respiratory Rate 15 09/22/21 13:27 Blood Pressure 138/79 09/22/21 13:27 Pulse Oximetry 98 09/22/21 13:27 MDM - Chest Pain Medical Decision Making 55-year-old lady presenting due to chest pain. No acute abnormality identified on ED evaluation. Plan continued outpatient follow-up. Medical Records I reviewed the patient's medical records. Lab Data I reviewed the patient's lab results. : 09/22/21 11:59 09/22/21 11:59 Radiology Impressions Chest X-Ray 09/22/21 11:16 IMPRESSION: No acute chest abnormality. Laboratory Results WBC 7.8 10^3/uL (4.0-10.0) 09/22/21 11:59 RBC 4.66 10^6/uL (4.1-5.3) 09/22/21 11:59 Hgb 14.9 g/dL (11.5-15.3) 09/22/21 11:59 Hct 44.6 % (37.0-47.0) 09/22/21 11:59 MCV 95.7 fl (81-99) 09/22/21 11:59 MCH 32.0 pg (28.0-34.0) 09/22/21 11:59 MCHC 33.4 g/dL (30.0-36.0) 09/22/21 11:59 RDW 13.8 % (12.1-15.1) 09/22/21 11:59 Plt Count 204 10^3/cmm (130-400) 09/22/21 11:59 MPV 10.3 fL (7.4-10.4) 09/22/21 11:59 Neut % (Auto) 63.8 % 09/22/21 11:59 Lymph % (Auto) 25.6 % 09/22/21 11:59 [place] % (Auto) 6.8 % 09/22/21 11:59 Eos % (Auto) 2.8 % 09/22/21 11:59 Baso % (Auto) 0.9 % 09/22/21 11:59 Neut # (Auto) 4.97 10^3/uL (1.8-7.7) 09/22/21 11:59 Lymph # (Auto) 2.0 10^3/uL (0.8-4.8) 09/22/21 11:59 [place] # (Auto) 0.5 10^3/uL (0.2-0.9) 09/22/21 11:59 Eos # (Auto) 0.2 10^3/uL (0.0-0.8) 09/22/21 11:59 Baso # (Auto) 0.1 10^3/uL (0.0-0.1) 09/22/21 11:59 Nucleated RBC % (auto) 0 % 09/22/21 11:59 Nucleated RBCs # 0.0 /100WBC 09/22/21 11:59 Sodium 137 mmol/L (136-145) 09/22/21 11:59 Potassium 4.1 mmol/L (3.5-5.1) 09/22/21 11:59 Chloride 104 mmol/L (98-107) 09/22/21 11:59 Carbon Dioxide 23 mmol/L (22-29) 09/22/21 11:59 Anion Gap 14.1 (5-19) 09/22/21 11:59 BUN 13 mg/dL (6-20) 09/22/21 11:59 Creatinine 1.1 mg/dL (0.5-0.9) H 09/22/21 11:59 GFR Calculation 52.0 mL/min (90-130) L 09/22/21 11:59 Glucose 94 mg/dL (65-115) 09/22/21 11:59 Calculated Osmolality 284 mOsm/kg (285-295) L 09/22/21 11:59 Calcium 9.7 mg/dL (8.5-10.5) 09/22/21 11:59 Total Bilirubin 0.3 mg/dL (0.15-1.2) 09/22/21 11:59 AST 10 U/L (0-32) 09/22/21 11:59 ALT 8 U/L (0-33) 09/22/21 11:59 Alkaline Phosphatase 146 IU/L (35-105) H 09/22/21 11:59 Troponin T Baseline 7 ng/L (0-10) 09/22/21 11:59 Total Protein 6.6 g/dL (6.6-8.7) 09/22/21 11:59 Albumin 4.3 g/dL (3.5-5.2) 09/22/21 11:59 Globulin 2.3 g/dL (1.3-4.6) 09/22/21 11:59 Lipase 25 U/L (13-60) 09/22/21 11:59 Discharge Plan Discharge Patient Disposition: Home Clinical Impression: Chest pain Condition: Stable Prescriptions: No Action citalopram 20 mg tablet 40 mg PO QAM Qty: 60 1RF lamotrigine 200 mg tablet 200 mg PO QAM Qty: 30 1RF trazodone 300 mg tablet 300 mg PO BEDTIME Qty: 30 1RF Ingrezza 80 mg capsule 80 mg PO QAM Qty: 30 2RF Trelegy Ellipta 200-62.5-25 mcg blister with device See Rx Instructions .ROUTE .COMPLEX Qty: 60 0RF Dose Instruction: INHALE 1 PUFF BY MOUTH DAILY. STOP BREO AND IPRATROPIUM Rx Instructions: INHALE 1 PUFF BY MOUTH DAILY. STOP BREO AND IPRATROPIUM fluticasone propionate 50 mcg/actuation spray,suspension 1 spray intranasal BID PRN (Reason: Allergy Symptoms) Qty: 16 1RF albuterol sulfate 90 mcg/actuation HFA aerosol inhaler 2 puff inhalation Q6H PRN (Reason: shortness of breath or wheezing) 0RF ipratropium-albuterol 0.5 mg-3 mg(2.5 mg base)/3 mL solution for nebulization 3 ml inhalation Q4H PRN (Reason: Shortness Of Breath Or Wheezing) 0RF Hold Instructions: Doctor's Order ondansetron HCl 4 mg tablet 4 mg PO TID PRN (Reason: Nausea And Vomiting) 0RF acetaminophen [Tylenol Ex Str Rapid Release] 500 mg Tablet 1,000 mg PO Q6H PRN (Reason: Pain) 0RF famotidine 20 mg tablet 20 mg PO QAM 0RF pantoprazole 40 mg tablet,delayed release (DR/EC) 40 mg PO QAM 0RF nystatin [Nystop] 100,000 unit/gram powder 1 applic topical BID PRN (Reason: unknown) 0RF ondansetron 4 mg tablet,disintegrating 4 mg PO Q6H PRN (Reason: nausea and vomiting) Qty: 14 0RF Discharge Orders: Discharge ED (Routine); Ordered 09/22/21 Ordered By: Anshul Ames Referrals: Dara Tavera FNP [Primary Care Provider] - Discharge Diet: Usual diet Discharge Activity: Resume usual activity Patient Instructions: Chest Pain (ED) Activity Restrictions/Additional Instructions: Thank you for visiting the emergency department. You were seen and evaluated for chest pain. The exact cause of your symptoms is unclear however based on history including unremarkable cardiac cath within 1 year you do not require inpatient evaluation at this time. Please continue to follow-up in the outpatient setting. Please follow-up with your primary care provider. Please ensure to attend your cardiology follow-up. Please return to the emergency department for anything that you are concerned about and feel needs emergency department evaluation. Coding Level of Care Code ED Transportation Planning Engineer for Shellie Guallpa Exam Comprehensive
--- NOTE | 2021-09-22 11:16 | XR_ITS ---
WS: [id number] XR chest 1V portable [id number] REASON FOR EXAM: chest pain FINDINGS: Considering the patient is rotated to the right (overlapping structures create increased density in t he medial right lower lung) the chest is unchanged compared to 09/02/2020. No definite acute pulmonary parenchymal or pleural abnormality. Moderate degenerative spondylosis in the mid and lower thoracic spine. XR/XR chest 1V portable [id number] IMPRESSION: No acute chest abnormality.
[2021-09-22] MEDS: lidocaine 2% viscous 15 ML, aluminum-mag hydrox-simethicon 30 ML, sucralfate oral liq 1 GM PO (11:32)
[2021-09-22 12:01] LABS: Basophils # 0.1 10^3/uL (0.0-0.1); Basophils % 0.9 %; Eosinophils # 0.2 10^3/uL (0.0-0.8); Eosinophils % 2.8 %; Hematocrit 44.6 % (37.0-47.0); Hemoglobin 14.9 g/dL (11.5-15.3); Lymphocytes % 25.6 %; Mean Corpuscular HGB Conc 33.4 g/dL (30.0-36.0); Mean Corpuscular Volume 95.7 fl (81-99); Mean Platelet Volume 10.3 fL (7.4-10.4); Monocytes # 0.5 10^3/uL (0.2-0.9); Monocytes % 6.8 %; Neutrophils # 4.97 10^3/uL (1.8-7.7); Neutrophils % 63.8 %; Nucleated Red Blood Cells % 0 %; Platelet Count 204 10^3/cmm (130-400); Red Blood Count 4.66 10^6/uL (4.1-5.3); Red Cell Distribution Width 13.8 % (12.1-15.1); White Blood Count 7.8 10^3/uL (4.0-10.0)
[2021-09-22 12:22] LABS: Troponin(5th) Baseline 7 ng/L (0-10)
[2021-09-22 12:25] LABS: Alanine Aminotransferase 8 U/L (0-33); Albumin Level 4.3 g/dL (3.5-5.2); Alkaline Phosphatase 146 IU/L (35-105); Anion Gap 14.1 (5-19); Aspartate Amino Transferase 10 U/L (0-32); Blood Urea Nitrogen 13 mg/dL (6-20); Calcium 9.7 mg/dL (8.5-10.5); Carbon Dioxide 23 mmol/L (22-29); Chloride 104 mmol/L (98-107); Globulin 2.3 g/dL (1.3-4.6); Glucose 94 mg/dL (65-115); Lipase 25 U/L (13-60); Osmolality Calculated 284 mOsm/kg (285-295); Potassium 4.1 mmol/L (3.5-5.1); Sodium 137 mmol/L (136-145); Total Bilirubin 0.3 mg/dL (0.15-1.2); Total Protein 6.6 g/dL (6.6-8.7)
--- NOTE | 2021-09-22 12:40 | PC.NURSE ---
Pt refused nitro. Pt states nitro bottoms my blood pressure .
[2021-09-22 12:42] VITALS: BP 149/81; PULSE 56; RESP 11; O2SAT 98
[2021-09-22] MEDS: acetaminophen 500 mg Tablet 1000 MG PO (12:47)
[2021-09-22 13:27] VITALS: BP 138/79; PULSE 63; RESP 15; O2SAT 98
--- NOTE | 2021-09-22 17:16 | ECG_ITS ---
[facility] Test Date: 2021-09-22 Pat Name: Latesha Wilhelm Department: Room: Gender: Female Jewel Hole Gauger: : 1965 Requested By: Anshul Ames Order Number: [id number] Alice MD: Freida Sampson M.D. Measurements Intervals [place] Rate: 71 P: 64 ME: 155 QRS: 70 QRSD: 88 T: 62 QT: 396 QTc: 433 Interpretive Statements SINUS RHYTHM Compared to ECG 09/02/2021 17:03:06 No significant changes Electronically Signed On 09-22-2021 18:30:34 CDT by Freida Sampson M.D. [id number]
== END 2021-09-22 13:27 | disposition home or self-care (01) ==
PROVIDERS: Emergency Provider Emergency Medicine; PCP Registered Nurse
DX: R07.9 Chest pain, unspecified (principal); F17.210 Nicotine dependence, cigarettes, uncomplicated
CPT/HCPCS: 71045; 80053; 83690; 84484; 85025; 93005; 99284

== ENCOUNTER 2021-09-26 21:40 | Emergency (ER) | payer MEDICARE, MEDICAID, SELFPAY ==
[2021-09-26 23:08] VITALS: PULSE 101; RESP 17; TEMP 36.6; O2SAT 96; BMI 31.1
[2021-09-27 00:46] VITALS: RESP 18; O2SAT 93
[2021-09-27] MEDS: ondansetron 2 mg/ML SDV 2 mL 4 MG IM (00:46)
[2021-09-27] MEDS: morphine 4 mg/mL SDV 1 mL IM (00:46)
[2021-09-27 00:50] VITALS: BP 116/59; PULSE 71; RESP 18; O2SAT 93
--- NOTE | 2021-09-27 01:04 | W.ED.ABDPA2 ---
HPI - Abdominal Pain General: Chief Complaint: Abdominal Pain Stated Complaint: ABD PAIN Time Seen by Provider: 09/27/21 00:15 Source: patient and EMS Mode of arrival: EMS Limitations: no limitations History of Present Illness: 55-year-old female who is very well-known to the ER has a history of chronic abdominal pain she states that tonight she has been having abdominal pain she rates an 8 out of 10 states been going on all day denies any worsening proving factors she has had nausea no vomiting denies any diarrhea denies any fevers. Associated Symptoms: Reports nausea; Denies chills, dysuria and fever(s) Related Data: Date of Last Menstrual Period: 06/19/95 Review of Systems Const: Denies: fever(s), chills, body aches or change in appetite Eyes: Denies: blurry vision or eye discomfort ENMT: Denies: throat pain or dental pain Card: Denies: chest pain Resp: Denies: dyspnea GI: Reports: abdominal pain and nausea : Denies: dysuria Musc: Denies: neck pain or back pain Skin/Breast: Denies: rash Neuro: Denies: headache(s) Psych: Denies: depression Wilbur/Lymph: Denies: easy bruising All/Imm: Denies: urticaria PFSH ED PFSH: Medical History Bladder stone Borderline personality disorder Chronic anxiety Chronic back pain greater than 3 months duration Chronic gastritis without bleeding COPD (chronic obstructive pulmonary disease) Cystitis cystica Dysphagia Esophageal stricture Foreign body in bladder GERD without esophagitis Neurogenic bladder Psychiatric care Restrictive lung disease Schizoaffective disorder, bipolar type Tardive dyskinesia Urgency incontinence Surgical History H/O bladder repair surgery MESH REPAIR H/O colonoscopy with polypectomy H/O esophagogastroduodenoscopy (09/21/20) H/O: hysterectomy History of appendectomy History of breast biopsy History of foot surgery sx in 2009. Screws placed by Dr. Don. History of ureter stent Hx of cholecystectomy S/P bronchoscopy with biopsy Family History Mother No problems noted. Father No problems noted. Other Asthma Cancer Diabetes Heart disease Social History Smoking and tobacco status: current every day smoker (0.5 ppd, started at age 27) cigarettes Packs smoked per day: 1 Years cigarettes smoked: 20 [ Other cigarette details: Hx of 1 PPD x 20 Years, started at age 27] Quit status (tobacco): considering quitting Second hand smoke exposure: Yes Smoking risk assessment/counseling performed?: No Alcohol intake: never Counseling given: No Counseling given: No Lives independently: Yes Household members: spouse Marital status: Number of children: 3 Current occupational status: disabled History of recent travel: No Current gender identity: Female Female Reproductive History: Date of last menstrual period: 06/19/95 Physical Exam Const: COMMON NORMALS: no acute distress, patient oriented x3 and healthy appearing HENMT: COMMON NORMALS: normocephalic and atraumatic HEAD & SCALP: normocephalic and atraumatic Eye: COMMON NORMALS: Equal, round and reactive pupils present and EOMs intact bilaterally PUPIL: Yes Equal, round and reactive pupils present Neck/C-Spine: COMMON NORMALS: full ROM and supple Chest: COMMONS NORMALS: normal inspection of the chest and normal palpation of entire chest wall Resp: COMMON NORMALS: normal respiratory effort, No retractions, No use of accessory muscles and clear to auscultation bilaterally AUSCULTATION: clear to auscultation bilaterally Cardio: COMMON NORMALS: regular rate, regular rhythm and No murmurs present (Cardio) RATE: regular rate RHYTHM: regular rhythm GI: COMMON NORMALS: Normal to inspection, nondistended, normoactive bowel sounds present, Soft to palpation, non-tender and no masses PALPATION: Yes Soft to palpation Extremity: COMMON NORMALS: normal to inspection and full ROM Neuro: COMMON NORMALS: patient oriented x3, moves all extremities and no focal motor deficits Psych: COMMON NORMALS: mental status grossly normal, Normal thought process present and cooperative THOUGHT PROCESS: Normal thought process present Skin: COMMON NORMALS: no rashes or lesions noted and no wounds GENERAL SKIN EXAM: no rashes or lesions noted Course Vital Signs: Vital signs: Vital Signs Temperature 97.8 F 09/26/21 23:08 Pulse Rate 73 09/27/21 01:40 Respiratory Rate 18 09/27/21 01:40 Blood Pressure 119/59 09/27/21 01:40 Pulse Oximetry 94 04/11/22 01:40 MDM - Abdominal Pain Medical Decision Making Patient presents here with abdominal pain is chronic in nature she feels much improved and is requesting discharge her blood work here is all normal she is stable for discharge she is to follow-up with PCP and return if worsening she understands agrees to plan. Lab Data : 09/27/21 01:24 09/27/21 01:24 Labs/Radiology: Laboratory Results WBC 11.3 10^3/uL (4.0-10.0) H 09/27/21 01:24 RBC 4.47 10^6/uL (4.1-5.3) 09/27/21 01:24 Hgb 14.5 g/dL (11.5-15.3) 09/27/21 01:24 Hct 43.0 % (37.0-47.0) 09/27/21 01:24 MCV 96.2 fl (81-99) 09/27/21 01:24 MCH 32.4 pg (28.0-34.0) 09/27/21 01:24 MCHC 33.7 g/dL (30.0-36.0) 09/27/21 01:24 RDW 14.0 % (12.1-15.1) 09/27/21 01:24 Plt Count 197 10^3/cmm (130-400) 09/27/21 01:24 MPV 10.7 fL (7.4-10.4) H 09/27/21 01:24 Neut % (Auto) 72.6 % 09/27/21 01:24 Lymph % (Auto) 17.5 % 09/27/21 01:24 [place] % (Auto) 5.6 % 09/27/21 01:24 Eos % (Auto) 2.9 % 09/27/21 01:24 Baso % (Auto) 0.9 % 09/27/21 01:24 Neut # (Auto) 8.22 10^3/uL (1.8-7.7) H 09/27/21 01:24 Lymph # (Auto) 2.0 10^3/uL (0.8-4.8) 09/27/21 01:24 [place] # (Auto) 0.6 10^3/uL (0.2-0.9) 09/27/21 01:24 Eos # (Auto) 0.3 10^3/uL (0.0-0.8) 09/27/21 01:24 Baso # (Auto) 0.1 10^3/uL (0.0-0.1) 09/27/21 01:24 Nucleated RBC % (auto) 0 % 09/27/21 01:24 Nucleated RBCs # 0.0 /100WBC 09/27/21 01:24 Sodium 139 mmol/L (136-145) 09/27/21 01:24 Potassium 3.8 mmol/L (3.5-5.1) 09/27/21 01:24 Chloride 108 mmol/L (98-107) H 09/27/21 01:24 Carbon Dioxide 19 mmol/L (22-29) L 09/27/21 01:24 Anion Gap 15.8 (5-19) 09/27/21 01:24 BUN 12 mg/dL (6-20) 09/27/21 01:24 Creatinine 1.0 mg/dL (0.5-0.9) H 09/27/21 01:24 GFR Calculation 58.0 mL/min (90-130) L 09/27/21 01:24 Glucose 100 mg/dL (65-115) 09/27/21 01:24 Calculated Osmolality 288 mOsm/kg (285-295) 09/27/21 01:24 Calcium 9.2 mg/dL (8.5-10.5) 09/27/21 01:24 Total Bilirubin 0.3 mg/dL (0.15-1.2) 09/27/21 01:24 AST 8 U/L (0-32) 09/27/21 01:24 ALT 8 U/L (0-33) 09/27/21 01:24 Alkaline Phosphatase 129 IU/L (35-105) H 09/27/21 01:24 Total Protein 6.6 g/dL (6.6-8.7) 09/27/21 01:24 Albumin 3.8 g/dL (3.5-5.2) 09/27/21 01:24 Globulin 2.8 g/dL (1.3-4.6) 09/27/21 01:24 Lipase 26 U/L (13-60) 09/27/21 01:24 Discharge Plan Discharge Patient Disposition: Home Clinical Impression: Abdominal pain Qualifiers: Abdominal location: generalized Qualified Code(s): R10.84 - Generalized abdominal pain Condition: Stable Prescriptions: No Action citalopram 20 mg tablet 40 mg PO QAM Qty: 60 1RF lamotrigine 200 mg tablet 200 mg PO QAM Qty: 30 1RF trazodone 300 mg tablet 300 mg PO BEDTIME Qty: 30 1RF Ingrezza 80 mg capsule 80 mg PO QAM Qty: 30 2RF Trelegy Ellipta 200-62.5-25 mcg blister with device See Rx Instructions .ROUTE .COMPLEX Qty: 60 0RF Dose Instruction: INHALE 1 PUFF BY MOUTH DAILY. STOP BREO AND IPRATROPIUM Rx Instructions: INHALE 1 PUFF BY MOUTH DAILY. STOP BREO AND IPRATROPIUM fluticasone propionate 50 mcg/actuation spray,suspension 1 spray intranasal BID PRN (Reason: Allergy Symptoms) Qty: 16 1RF albuterol sulfate 90 mcg/actuation HFA aerosol inhaler 2 puff inhalation Q6H PRN (Reason: shortness of breath or wheezing) 0RF ipratropium-albuterol 0.5 mg-3 mg(2.5 mg base)/3 mL solution for nebulization 3 ml inhalation Q4H PRN (Reason: Shortness Of Breath Or Wheezing) 0RF Hold Instructions: Doctor's Order ondansetron HCl 4 mg tablet 4 mg PO TID PRN (Reason: Nausea And Vomiting) 0RF acetaminophen [Tylenol Ex Str Rapid Release] 500 mg Tablet 1,000 mg PO Q6H PRN (Reason: Pain) 0RF famotidine 20 mg tablet 20 mg PO QAM 0RF pantoprazole 40 mg tablet,delayed release (DR/EC) 40 mg PO QAM 0RF nystatin [Nystop] 100,000 unit/gram powder 1 applic topical BID PRN (Reason: unknown) 0RF ondansetron 4 mg tablet,disintegrating 4 mg PO Q6H PRN (Reason: nausea and vomiting) Qty: 14 0RF Discharge Orders: Discharge ED (Routine); Ordered 09/27/21 Ordered By: Damien Urbina Referrals: Dara Tavera, [employer] [Primary Care Provider] - 1-3 days Discharge Diet: Advance as tolerated Discharge Activity: Resume usual activity Patient Instructions: Abdominal Pain (ED) Coding Level of Care Code ED Corrections Officer for Chg Fwd Exam Comprehensive
[2021-09-27] MEDS: LORazepam 2 mg/mL INJ 1 mL 1 MG IM (01:39)
[2021-09-27 01:40] VITALS: BP 119/59; PULSE 73; RESP 18; O2SAT 94
[2021-09-27 01:45] LABS: Basophils # 0.1 10^3/uL (0.0-0.1); Basophils % 0.9 %; Eosinophils # 0.3 10^3/uL (0.0-0.8); Eosinophils % 2.9 %; Hemoglobin 14.5 g/dL (11.5-15.3); Lymphocytes % 17.5 %; Mean Corpuscular HGB Conc 33.7 g/dL (30.0-36.0); Mean Corpuscular Hemoglobin 32.4 pg (28.0-34.0); Mean Corpuscular Volume 96.2 fl (81-99); Mean Platelet Volume 10.7 fL (7.4-10.4); Monocytes # 0.6 10^3/uL (0.2-0.9); Monocytes % 5.6 %; Neutrophils # 8.22 10^3/uL (1.8-7.7); Neutrophils % 72.6 %; Nucleated Red Blood Cells % 0 %; Platelet Count 197 10^3/cmm (130-400); Red Blood Count 4.47 10^6/uL (4.1-5.3); White Blood Count 11.3 10^3/uL (4.0-10.0)
[2021-09-27 02:13] LABS: Alanine Aminotransferase 8 U/L (0-33); Albumin Level 3.8 g/dL (3.5-5.2); Alkaline Phosphatase 129 IU/L (35-105); Anion Gap 15.8 (5-19); Aspartate Amino Transferase 8 U/L (0-32); Blood Urea Nitrogen 12 mg/dL (6-20); Calcium 9.2 mg/dL (8.5-10.5); Carbon Dioxide 19 mmol/L (22-29); Chloride 108 mmol/L (98-107); Globulin 2.8 g/dL (1.3-4.6); Glucose 100 mg/dL (65-115); Lipase 26 U/L (13-60); Osmolality Calculated 288 mOsm/kg (285-295); Potassium 3.8 mmol/L (3.5-5.1); Sodium 139 mmol/L (136-145); Total Bilirubin 0.3 mg/dL (0.15-1.2); Total Protein 6.6 g/dL (6.6-8.7)
[2021-09-27 02:47] VITALS: BP 119/59; PULSE 88; RESP 20; TEMP 36.7; O2SAT 97
== END 2021-09-27 02:48 | disposition home or self-care (01) ==
PROVIDERS: Emergency Provider Emergency Medicine; PCP Registered Nurse
DX: R10.84 Generalized abdominal pain (principal); F17.210 Nicotine dependence, cigarettes, uncomplicated
CPT/HCPCS: 36415; 80053; 83690; 85025; 96372; 99283; J2060; J2270; J2405

== ENCOUNTER → 2021-10-05 07:24 | Outpatient (BNVA) | payer MEDICARE, MEDICAID, SELFPAY | PROVIDERS: PCP Registered Nurse; Visit Provider Nurse Practitioner | DX: F60.3 Borderline personality disorder (principal); F25.0 Schizoaffective disorder, bipolar type | CPT/HCPCS: 99214 ==

== ENCOUNTER 2021-10-10 13:30 | Emergency (ER) | payer MEDICARE, MEDICAID, SELFPAY ==
[2021-10-10 14:51] VITALS: BP 85/63; PULSE 85; RESP 18; TEMP 37.1; O2SAT 96; BMI 31.2
[2021-10-10 16:24] LABS: Add Urine Microscopic? NO; Charge for UA Resulting for Rev
[2021-10-10 16:33] LABS: Bilirubin Urine Neg (Negative); Blood Urine Neg (Negative); Glucose Urine UA Norm (Normal); Ketones Urine Negative (Negative); Leukocyte Esterase Urine Negative (Negative); Nitrate Urine Negative (Negative); Protein Urine Neg (Negative); Specific Gravity, Urine 1.025 (1.005-1.030); Urine Appearance Clear (CLEAR); Urine Color Yellow (Yellow); Urobilinogen Urine Norm (Negative); pH Urine 5 (5-7)
[2021-10-10 18:24] VITALS: BP 92/62; PULSE 69; RESP 19; O2SAT 97
[2021-10-10 18:30] VITALS: BP 92/62; PULSE 61; RESP 19; O2SAT 97
--- NOTE | 2021-10-10 18:32 | ED_ITS ---
HPI - Nausea/Vomiting/Diarrhea General: Chief complaint: Nausea/Vomiting/Diarrhea Stated complaint: ABD PAIN Time Seen by Provider: 10/10/21 18:18 Source: patient Mode of arrival: ambulatory Limitations: no limitations History of Present Illness: This patient presents to our emergency department because of nausea, vomiting and diarrhea. She states her symptoms began earlier today and she has had approximately half a dozen episodes of emesis with loose stools as well. She denies any fevers but states she has had crampy sharp abdominal pain which has been intermittent since onset. She denies any blood in her stools or blood in her emesis. She denies any recent antibiotic use or exposure to infectious disease or travel. She states she has had decreased urine output today. She states she has been able to take all her usual medications however. She denies cough sore throat or other constitutional complaints. She states she is had a prior hysterectomy as well as an appendectomy. Her chart reveals that she has had multiple episodes of abdominal pain presentations to this emergency department in the past. MD elicited complaint: nausea, vomiting, diarrhea and abdominal pain Associated nausea: Yes Location of pain: Diffuse Quality: cramping Associated symtoms: Reports no associated symptoms, anxiety and nausea; Denies change in vision, chest pain, dysuria, headache(s) or palpitations Review of Systems Const: Denies: fever(s), chills or body aches Eyes: Denies: change in vision or blurry vision ENMT: Denies: throat pain, odynophagia, dry mouth or change in hearing Card: Denies: chest pain, palpitations, irregular heart rhythm or edema Resp: Denies: dyspnea, productive cough, non-productive cough or wheezing GI: Reports: nausea, vomiting and diarrhea : Denies: flank pain, difficulty voiding, dysuria, urinary frequency, urinary urgency or urinary hesitancy Musc: Denies: neck pain, back pain or extremity pain Skin/Breast: Denies: rash, pruritus or erythema Neuro: Denies: headache(s), numbness in extremities or weakness in extremities Psych: Reports: anxiety Endo: Denies: polyuria or polydipsia PFS ED PFSH: Medical History Bladder stone Borderline personality disorder Chronic anxiety Chronic back pain greater than 3 months duration Chronic gastritis without bleeding COPD (chronic obstructive pulmonary disease) Cystitis cystica Dysphagia Esophageal stricture Foreign body in bladder GERD without esophagitis Neurogenic bladder Psychiatric care Restrictive lung disease Schizoaffective disorder, bipolar type Tardive dyskinesia Urgency incontinence Surgical History H/O bladder repair surgery MESH REPAIR H/O colonoscopy with polypectomy H/O esophagogastroduodenoscopy (09/21/20) H/O: hysterectomy History of appendectomy History of breast biopsy History of foot surgery sx in 2009. Screws placed by Dr. Don. History of ureter stent Hx of cholecystectomy S/P bronchoscopy with biopsy Family History Mother No problems noted. Father No problems noted. Other Asthma Cancer Diabetes Heart disease Social History Smoking and tobacco status: current every day smoker (0.5 ppd, started at age 27) cigarettes Packs smoked per day: 1 Years cigarettes smoked: 20 [ Other ci garette details: Hx of 1 PPD x 20 Years, started at age 27] Quit status (tobacco): considering quitting Second hand smoke exposure: Yes Smoking risk assessment/counseling performed?: No Alcohol intake: never Counseling given: No Counseling given: No Lives independently: Yes Household members: spouse Marital status: Number of children: 3 Current occupational status: disabled History of recent travel: No Current gender identity: Female Female Reproductive History: Date of last menstrual period: 06/19/95 Physical Exam Narrative: EXAM NARRATIVE: In no acute distress. She answers questions in a goal-directed fashion she appears to be comfortable. Const: COMMON NORMALS: no acute distress and patient oriented x3 NUTRITIONAL APPEARANCE: obese HENMT: COMMON NORMALS: normocephalic, Normal nasal mucous membranes and turbinates present and moist oral mucous membranes HEAD & SCALP: norm ocephalic NOSE: Normal nasal mucous membranes and turbinates present Eye: COMMON NORMALS: Equal, round and reactive pupils present, EOMs intact bilaterally, conjunctivae normal and no scleral icterus CONJUNCTIVA: Yes conjunctivae normal PUPIL: Yes Equal, round and reactive pupils present Neck/C-Spine: COMMON NORMALS: full ROM, no lymphadenopathy and no JVD Chest: COMMONS NORMALS: normal inspection of the chest Resp: COMMON NORMALS: normal respiratory effort and No use of accessory muscles EFFORT & INSPECTION: Yes able to speak in complete sentences Cardio: COMMON NORMALS: no JVD, regular rhythm, No murmurs present (Cardio) and Peripheral pulses 2+ throughout RHYTHM: regular rhythm PERIPHERAL PULSES: Peripheral pulses 2+ throughout GI: OTHER: Her abdominal examination reveals to be obese. She has some mild voluntary guarding throughout but no rebound. Normal active bowel sounds. No masses, no bruits. : COMMON NORMALS: Yes no CVA tenderness BLADDER/KIDNEY EXAM: Yes no CVA tenderness Back/Pelvis: COMMON NORMALS: no CVA tenderness, thoracic and lumbar spine normal to inspection, no thoracic nor lumbar tenderness and thoraco-lumbar ROM normal Extremity: COMMON NORMALS: normal to inspection, full ROM, no calf tenderness and no pedal edema Neuro: COMMON NORMALS: patient oriented x3, moves all extremities, no focal motor deficits and no sensory deficits noted Psych: COMMON NORMALS: mental status grossly normal and cooperative Skin: COMMON NORMALS: no rashes or lesions noted, no wounds, turgor normal and no jaundice GENERAL SKIN EXAM: no rashes or lesions noted and turgor normal Course Vital Signs: Vital signs: Vital Signs Temperature 98.8 F 10/10/21 14:51 Pulse Rate 61 10/10/21 18:30 Respiratory Rate 19 H 10/10/21 18:30 Blood Pressure 92/62 10/10/21 18:30 Pulse Oximetry 97 10/10/21 18:30 MDM - Nausea/Vomiting/Diarrhea Medical Decision Making Patient with a history of chronic abdominal pain has had multiple ED evaluations at this as well as other facilities for similar symptoms. She is also had multiple mental health evaluations. Her findings today are not suggestive of a ongoing emergency medical condition. She was given oral antiemetics and she too k oral fluids without difficulty. She does not have any clinical findings to suggest a surgical abdomen at this time. Given the chronicity of her problems and her reassuring evaluation this evening no additional work-up is indicated in this emergency department at this time. She has received an appropriate medical screening examination and is suitable for discharge with outpatient follow-up or return precautions as needed. Stable for discharge. Medical Records I reviewed the patient's medical records. Lab Data I reviewed the patient's lab results. : 10/10/21 19:09 10/10/21 19:09 Laboratory Results WBC 7.3 10^3/uL (4.0-10.0) 10/10/21 19:09 RBC 4.41 10^6/uL (4.1-5.3) 10/10/21 19:09 Hgb 14.2 g/dL (11.5-15.3) 10/10/21 19:09 Hct 41.5 % (37.0-47.0) 10/10/21 19:09 MCV 94.1 fl (81-99) 10/10/21 19:09 MCH 32.2 pg (28.0-34.0) 10/10/21 19:09 MCHC 34.2 g/dL (30.0-36.0) 10/10/21 19:09 RDW 13.4 % (12.1-15.1) 10/10/21 19:09 Plt Count 227 10^3/cmm (130-400) 10/10/21 19:09 MPV 10.3 fL (7.4-10.4) 10/10/21 19:09 Neut % (Auto) 51.8 % 10/10/21 19:09 Lymph % (Auto) 34.5 % 10/10/21 19:09 [place] % (Auto) 8.0 % 10/10/21 19:09 Eos % (Auto) 3.8 % 10/10/21 19:09 Baso % (Auto) 1.5 % 10/10/21 19:09 Neut # (Auto) 3.79 10^3/uL (1.8-7.7) 10/10/21 19:09 Lymph # (Auto) 2.5 10^3/uL (0.8-4.8) 10/10/21 19:09 [place] # (Auto) 0.6 10^3/uL (0.2-0.9) 10/10/21 19:09 Eos # (Auto) 0.3 10^3/uL (0.0-0.8) 10/10/21 19:09 Baso # (Auto) 0.1 10^3/uL (0.0-0.1) 10/10/21 19:09 Nucleated RBC % (auto) 0 % 10/10/21 19:09 Nucleated RBCs # 0.0 /100WBC 10/10/21 19:09 Sodium 138 mmol/L (136-145) 10/10/21 19:09 Potassium 3.6 mmol/L (3.5-5.1) 10/10/21 19:09 Chloride 105 mmol/L (98-107) 10/10/21 19:09 Carbon Dioxide 20 mmol/L (22-29) L 10/10/21 19:09 Anion Gap 16.6 (5-19) 10/10/21 19:09 BUN 21 mg/dL (6-20) H 10/10/21 19:09 Creatinine 1.0 mg/dL (0.5-0.9) H 10/10/21 19:09 GFR Calculation 58.0 mL/min (90-130) L 10/10/21 19:09 Glucose 89 mg/dL (65-115) 10/10/21 19:09 Calculated Osmolality 288 mOsm/kg (285-295) 10/10/21 19:09 Calcium 8.4 mg/dL (8.5-10.5) L 10/10/21 19:09 Total Bilirubin 0.2 mg/dL (0.15-1.2) 10/10/21 19:09 AST 10 U/L (0-32) 10/10/21 19:09 ALT 9 U/L (0-33) 10/10/21 19:09 Alkaline Phosphatase 115 IU/L (35-105) H 10/10/21 19:09 Total Protein 6.1 g/dL (6.6-8.7) L 10/10/21 19:09 Albumin 4.1 g/dL (3.5-5.2) 10/10/21 19:09 Globulin 2.0 g/dL (1.3-4.6) 10/10/21 19:09 Lipase 21 U/L (13-60) 10/10/21 19:09 Urine Color Yellow (Yellow) 10/10/21 16:00 Urine Appearance Clear (CLEAR) 10/10/21 16:00 Urine pH 5 (5-7) 10/10/21 16:00 Ur Specific [place] 1.025 (1.005-1.030) 10/10/21 16:00 Urine Protein Neg (Negative) 10/10/21 16:00 Urine Glucose (UA) Norm (Normal) 10/10/21 16:00 Urine Ketones Negative (Negative) 10/10/21 16:00 Urine Blood Neg (Negative) 10/10/21 16:00 Urine Nitrate Negative (Negative) 10/10/21 16:00 Urine Bilirubin Neg (Negative) 10/10/21 16:00 Urine Urobilinogen Norm mg/dL (Negative) 10/10/21 16:00 Ur Leukocyte Esterase Negative (Negative) 10/10/21 16:00 Discharge Plan Discharge Patient Disposition: Home Clinical Impression: Chronic abdominal pain Condition: Stable Prescriptions: No Action citalopram 20 mg tablet 40 mg PO QAM Qty: 60 1RF lamotrigine 200 mg tablet 200 mg PO QAM Qty: 30 1RF trazodone 300 mg tablet 300 mg PO BEDTIME Qty: 30 1RF Ingrezza 80 mg capsule 80 mg PO QAM Qty: 30 2RF Trelegy Ellipta 200-62.5-25 mcg blister with device See Rx Instructions .ROUTE .COMPLEX Qty: 60 0RF Dose Instruction: INHALE 1 PUFF BY MOUTH DAILY. STOP BREO AND IPRATROPIUM Rx Instructions: INHALE 1 PUFF BY MOUTH DAILY. STOP BREO AND IPRATROPIUM fluticasone propionate 50 mcg/actuation spray,suspension 1 spray intranasal BID PRN (Reason: Allergy Symptoms) Qty: 16 1RF albuterol sulfate 90 mcg/actuation HFA aerosol inhaler 2 puff inhalation Q6H PRN (Reason: shortness of breath or wheezing) 0RF ipratropium-albuterol 0.5 mg-3 mg(2.5 mg base)/3 mL solution for nebulization 3 ml inhalation Q4H PRN (Reason: Shortness Of Breath Or Wheezing) 0RF Hold Instructions: Doctor's Order ondansetron HCl 4 mg tablet 4 mg PO TID PRN (Reason: Nausea And Vomiting) 0RF acetaminophen [Tylenol Ex Str Rapid Release] 500 mg Tablet 1,000 mg PO Q6H PRN (Reason: Pain) 0RF famotidine 20 mg tablet 20 mg PO QAM 0RF pantoprazole 40 mg tablet,delayed release (DR/EC) 40 mg PO QAM 0RF nystatin [Nystop] 100,000 unit/gram powder 1 applic topical BID PRN (Reason: unknown) 0RF ondansetron 4 mg tablet,disintegrating 4 mg PO Q6H PRN (Reason: nausea and vomiting) Qty: 14 0RF Discharge Orders: Discharge ED (Routine); Ordered 10/10/21 Ordered By: Hood Angel Referrals: Dara Tavera FNP [Primary Care Provider] - Discharge Diet: Usual diet Discharge Activity: Resume usual activity Patient Instructions: Abdominal Pain (ED), Opioid Safety Activity Restrictions/Additional Instructions: Continue all your usual medications. Follow-up with your primary care doctor for ongoing symptoms. If you develop a change in your symptoms, fever or other concerns return to this or the nearest emergency department. Coding Level of Care Code ED Bullet Lubricating Machine Operator for Shellie Fwd Exam Comprehensive
[2021-10-10 19:25] LABS: Basophils # 0.1 10^3/uL (0.0-0.1); Basophils % 1.5 %; Eosinophils # 0.3 10^3/uL (0.0-0.8); Eosinophils % 3.8 %; Hematocrit 41.5 % (37.0-47.0); Hemoglobin 14.2 g/dL (11.5-15.3); Lymphocytes # 2.5 10^3/uL (0.8-4.8); Lymphocytes % 34.5 %; Mean Corpuscular HGB Conc 34.2 g/dL (30.0-36.0); Mean Corpuscular Hemoglobin 32.2 pg (28.0-34.0); Mean Corpuscular Volume 94.1 fl (81-99); Mean Platelet Volume 10.3 fL (7.4-10.4); Monocytes # 0.6 10^3/uL (0.2-0.9); Neutrophils # 3.79 10^3/uL (1.8-7.7); Neutrophils % 51.8 %; Nucleated Red Blood Cells % 0 %; Platelet Count 227 10^3/cmm (130-400); Red Blood Count 4.41 10^6/uL (4.1-5.3); Red Cell Distribution Width 13.4 % (12.1-15.1); White Blood Count 7.3 10^3/uL (4.0-10.0)
[2021-10-10 19:41] LABS: Alanine Aminotransferase 9 U/L (0-33); Albumin Level 4.1 g/dL (3.5-5.2); Alkaline Phosphatase 115 IU/L (35-105); Anion Gap 16.6 (5-19); Aspartate Amino Transferase 10 U/L (0-32); Blood Urea Nitrogen 21 mg/dL (6-20); Calcium 8.4 mg/dL (8.5-10.5); Carbon Dioxide 20 mmol/L (22-29); Chloride 105 mmol/L (98-107); Glucose 89 mg/dL (65-115); Lipase 21 U/L (13-60); Osmolality Calculated 288 mOsm/kg (285-295); Potassium 3.6 mmol/L (3.5-5.1); Sodium 138 mmol/L (136-145); Total Bilirubin 0.2 mg/dL (0.15-1.2); Total Protein 6.1 g/dL (6.6-8.7)
[2021-10-10 19:54] LABS: Slide Review Slide Review Perform
[2021-10-10] MEDS: hyoscyamine ODT 0.125 mg Tablet 0.25 MG PO (20:00)
[2021-10-10] MEDS: ondansetron 4 MG Tablet PO (20:00)
[2021-10-10 22:24] VITALS: BP 118/77; PULSE 68; O2SAT 95
== END 2021-10-10 22:25 | disposition home or self-care (01) ==
PROVIDERS: Physician Assistant; Emergency Provider Emergency Medicine; PCP Registered Nurse
DX: R10.9 Unspecified abdominal pain (principal); G89.29 Other chronic pain; R11.2 Nausea with vomiting, unspecified; F17.210 Nicotine dependence, cigarettes, uncomplicated; F41.9 Anxiety disorder, unspecified
CPT/HCPCS: 36415; 80053; 81003; 83690; 85025; 99283; Q0162

== ENCOUNTER 2021-10-21 10:34 | Emergency (ER) | payer MEDICARE, MEDICAID, SELFPAY ==
[2021-10-21 10:44] VITALS: BP 116/69; PULSE 80; RESP 20; TEMP 36.6; O2SAT 96; BMI 33.3
--- NOTE | 2021-10-21 11:08 | ED_ITS ---
HPI - Abdominal Pain General: Chief Complaint: Nausea/Vomiting/Diarrhea Stated Complaint: ABD PAIN Time Seen by Provider: 10/21/21 10:37 Source: patient Mode of arrival: ambulatory Limitations: no limitations History of Present Illness: 55-year-old female presents complaining of abdominal discomfort. She chronically has abdominal pain she complaining of nausea and some vomiting. She has some diabetes likely has some diabetic gastroparesis. No hematochezia melena hematemesis coffee-ground emesis no fever sweats chills no dysuria urgency or frequency. MD elicited complaint: abdominal pain Onset (ago): minute(s) Pain Consistency: intermittent Location: Diffuse Severity: mild Quality: aching Radiation: none Migration to: no migration Associated Symptoms: Reports bloating and GI cramping; Denies anorexia, belching, change in bowel habits, change in stool character, chills, coffee ground emesis, constipation, diarrhea, dyspepsia, dysuria, excessive flatus, fever(s), heartburn, hematochezia, hematuria, hematemesis, fecal incontinence, loose stools, melena, nausea, poor appetite, syncope and vomiting Related Data: Date of Last Menstrual Period: 06/19/95 Review of Systems Const: Denies: fever(s) or chills ENMT: Denies: throat pain, ear or mastoid pain, nasal discharge or nasal c ongestion Card: Denies: syncope Resp: Denies: dyspnea, productive cough or non-productive cough GI: Reports: bloating and GI cramping; Denies: nausea, vomiting, hematemesis, coffee ground emesis, heartburn, di arrhea, constipation, belching, excessive flatus, fecal incontinence, change in bowel habits, change in stool character, hematochezia or melena : Denies: dysuria or hematuria Skin/Breast: Denies: rash or pruritus PFSH ED PFSH: Medical History Bladder stone Borderline personality disorder Chronic anxiety Chronic back pain greater than 3 months duration Chronic gastritis without bleeding COPD (chronic obstructive pulmonary disease) Cystitis cystica Dysphagia Esophageal stricture Foreign body in bladder GERD without esophagitis Neurogenic bladder Psychiatric care Restrictive lung disease Schizoaffective disorder, bipolar type Tardive dyskinesia Urgency incontinence Surgical History H/O bladder repair surgery MESH REPAIR H/O colonoscopy with polypectomy H/O esophagogastroduodenoscopy (09/21/20) H/O: hysterectomy History of appendectomy History of breast biopsy History of foot surgery sx in 2009. Screws placed by Dr. Don. History of ureter stent Hx of cholecystectomy S/P bronchoscopy with biopsy Family History Mother No problems noted. Father No problems noted. Other Asthma Cancer Diabetes Heart disease Social History Smoking and tobacco status: current every day smoker (0.5 ppd, started at age 27) cigarettes Packs smoked per day: 1 Years cigarettes smoked: 20 [ Other cigarette details: Hx of 1 PPD x 20 Years, started at age 27] Quit status (tobacco): considering quitting Second hand smoke exposure: Yes Smoking risk assessment/counseling performed?: No Alcohol intake: never Counseling given: No Counseling given: No Lives independently: Yes Household members: spouse Marital status: Number of children: 3 Current occupational status: disabled History of recent travel: No Current gender identity: Female Female Reproductive History: Date of last menstrual period: 06/19/95 Physical Exam Const: COMMON NORMALS: no acute distress GENERAL APPEARANCE: cooperative and comfortable ORIENTATION/CONSCIOUSNESS: Yes awake, Yes oriented to person, Yes oriented to place and Yes oriented to time HENMT: COMMON NORMALS: normocephalic, atraumatic and hearing grossly normal bilaterally HEAD & SCALP: normocephalic and atraumatic Neck/C-Spine: COMMON NORMALS: no JVD Resp: COMMON NORMALS: normal respiratory effort, No retractions, No use of accessory muscles and clear to auscultation bilaterally AUSCULTATION: clear to auscultation bilaterally Cardio: COMMON NORMALS: no JVD, regular rate, regular rhythm and No murmurs present (Cardio) RATE: regular rate RHYTHM: regular rhythm GI: COMMON NORMALS: Soft to palpation and No hepatosplenomegaly present AUSCULTATION: Yes normoactive bowel sounds PALPATION: Yes Soft to palpation, No Tenderness to palpation present (GI), No Guarding due to palpation present (GI) and Yes No hepatosplenomegaly present Extremity: COMMON NORMALS: normal to inspection, capillary refill normal, no clubbing, cyanosis or edema, no calf tenderness and no pedal edema Neuro: SENSORIUM/ORIENTATION: Yes oriented to person, Yes oriented to place and Yes oriented to time Skin: COMMON NORMALS: no rashes or lesions noted GENERAL SKIN EXAM: no rashes or lesions noted Course Vital Signs: Vital signs: Vital Signs Temperature 97.8 F 10/21/21 10:44 Pulse Rate 80 10/21/21 10:44 Respiratory Rate 20 H 10/21/21 10:44 Blood Pressure 116/69 10/21/21 10:44 Pulse Oximetry 96 10/21/21 10:44 MDM - Abdominal Pain Medical Decision Making Chronic abdominal pain. But 10 labs are back patient is already improved. Abdominal exam continues to be rather benign do not recommend CT at this point can return if is worsening problems clinical diet use ondansetron as needed follow-up as needed Medical Records I reviewed the patient's medical records. Lab Data I reviewed the patient's lab results. : 10/21/21 11:55 10/21/21 11:55 Labs/Radiology: Laboratory Results WBC 8.4 10^3/uL (4.0-10.0) 10/21/21 11:55 RBC 4.71 10^6/uL (4.1-5.3) 10/21/21 11:55 Hgb 14.8 g/dL (11.5-15.3) 10/21/21 11:55 Hct 45.0 % (37.0-47.0) 10/21/21 11:55 MCV 95.5 fl (81-99) 10/21/21 11:55 MCH 31.4 pg (28.0-34.0) 10/21/21 11:55 MCHC 32.9 g/dL (30.0-36.0) 10/21/21 11:55 RDW 13.5 % (12.1-15.1) 10/21/21 11:55 Plt Count 209 10^3/cmm (130-400) 10/21/21 11:55 MPV 10.4 fL (7.4-10.4) 10/21/21 11:55 Neut % (Auto) 62.5 % 10/21/21 11:55 Lymph % (Auto) 25.4 % 10/21/21 11:55 [place] % (Auto) 7.5 % 10/21/21 11:55 Eos % (Auto) 3.1 % 10/21/21 11:55 Baso % (Auto) 1.0 % 10/21/21 11:55 Neut # (Auto) 5.22 10^3/uL (1.8-7.7) 10/21/21 11:55 Lymph # (Auto) 2.1 10^3/uL (0.8-4.8) 10/21/21 11:55 [place] # (Auto) 0.6 10^3/uL (0.2-0.9) 10/21/21 11:55 Eos # (Auto) 0.3 10^3/uL (0.0-0.8) 10/21/21 11:55 Baso # (Auto) 0.1 10^3/uL (0.0-0.1) 10/21/21 11:55 Nucleated RBC % (auto) 0 % 10/21/21 11:55 Nucleated RBCs # 0.0 /100WBC 10/21/21 11:55 Sodium 138 mmol/L (136-145) 10/21/21 11:55 Potassium 4.2 mmol/L (3.5-5.1) 10/21/21 11:55 Chloride 104 mmol/L (98-107) 10/21/21 11:55 Carbon Dioxide 22 mmol/L (22-29) 10/21/21 11:55 Anion Gap 16.2 (5-19) 10/21/21 11:55 BUN 15 mg/dL (6-20) 10/21/21 11:55 Creatinine 1.1 mg/dL (0.5-0.9) H 10/21/21 11:55 GFR Calculation 52.0 mL/min (90-130) L 10/21/21 11:55 Glucose 92 mg/dL (65-115) 10/21/21 11:55 Calculated Osmolality 286 mOsm/kg (285-295) 10/21/21 11:55 Calcium 9.8 mg/dL (8.5-10.5) 10/21/21 11:55 Total Bilirubin 0.3 mg/dL (0.15-1.2) 10/21/21 11:55 AST 12 U/L (0-32) 10/21/21 11:55 ALT 9 U/L (0-33) 10/21/21 11:55 Alkaline Phosphatase 150 IU/L (35-105) H 10/21/21 11:55 Total Protein 6.6 g/dL (6.6-8.7) 10/21/21 11:55 Albumin 4.4 g/dL (3.5-5.2) 10/21/21 11:55 Globulin 2.2 g/dL (1.3-4.6) 10/21/21 11:55 Lipase 22 U/L (13-60) 10/21/21 11:55 Urine Color Yellow (Yellow) 10/21/21 11:16 Urine Appearance Clear (CLEAR) 10/21/21 11:16 Urine pH 5 (5-7) 10/21/21 11:16 Ur Specific [place] 1.010 (1.005-1.030) 10/21/21 11:16 Urine Protein Neg (Negative) 10/21/21 11:16 Urine Glucose (UA) Norm (Normal) 10/21/21 11:16 Urine Ketones Negative (Negative) 10/21/21 11:16 Urine Blood Neg (Negative) 10/21/21 11:16 Urine Nitrate Negative (Negative) 10/21/21 11:16 Urine Bilirubin Neg (Negative) 10/21/21 11:16 Urine Urobilinogen Norm mg/dL (Negative) 10/21/21 11:16 Ur Leukocyte Esterase Negative (Negative) 10/21/21 11:16 Discharge Plan Discharge Patient Disposition: Home Clinical Impression: Chronic abdominal pain Condition: Stable Prescriptions: No Action lamotrigine 200 mg tablet 200 mg PO QAM Qty: 30 1RF trazodone 300 mg tablet 300 mg PO BEDTIME Qty: 30 1RF [place] 80 mg capsule 80 mg PO QAM Qty: 30 2RF fluticasone propionate 50 mcg/actuation spray,suspension 1 spray intranasal BID PRN (Reason: Allergy Symptoms) Qty: 16 1RF Trelegy Ellipta 200-62.5-25 mcg blister with device See Rx Instructions .ROUTE .COMPLEX Qty: 60 0RF Dose Instruction: INHALE 1 PUFF BY MOUTH DAILY. STOP BREO AND IPRATROPIUM Rx Instructions: INHALE 1 PUFF BY MOUTH DAILY. STOP BREO AND IPRATROPIUM albuterol sulfate 90 mcg/actuation HFA aerosol inhaler 2 puff inhalation Q6H PRN (Reason: shortness of breath or wheezing) 0RF ipratropium-albuterol 0.5 mg-3 mg(2.5 mg base)/3 mL solution for nebulization 3 ml inhalation Q4H PRN (Reason: Shortness Of Breath Or Wheezing) 0RF Hold Instructions: Doctor's Order acetaminophen [Tylenol Ex Str Rapid Release] 500 mg Tablet 1,000 mg PO Q6H PRN (Reason: Pain) 0RF famotidine 20 mg tablet 20 mg PO QAM 0RF pantoprazole 40 mg tablet,delayed release (DR/EC) 40 mg PO QAM 0RF nystatin [Nystop] 100,000 unit/gram powder 1 applic topical BID PRN (Reason: Rash) 0RF ondansetron 4 mg tablet,disintegrating 4 mg PO Q6H PRN (Reason: nausea and vomiting) Qty: 14 0RF quetiapine 100 mg tablet 200 mg PO BEDTIME 0RF citalopram 20 mg tablet 20 mg PO QAM 0RF Discharge Orders: Discharge ED (Routine); Ordered 10/21/21 Ordered By: Bryant Whitley Referrals: Dara Tavera, APPLIANCE REPAIR TECHNICIAN [Primary Care Provider] - Discharge Diet: Clear Liquid Discharge Activity: Increase activity as tolerated Patient Instructions: Clear Liquid Diet (ED), Abdominal Pain (ED), Opioid Safety Activity Restrictions/Additional Instructions: Clear liquid diet for 24 to 48 hours and advance as tolerated. Ondansetron to use as needed for nausea and vomiting. Coding Level of Care Code ED Spot Machine Operator for Shellie Guallpa
[2021-10-21 12:04] LABS: Basophils # 0.1 10^3/uL (0.0-0.1); Eosinophils # 0.3 10^3/uL (0.0-0.8); Eosinophils % 3.1 %; Hemoglobin 14.8 g/dL (11.5-15.3); Lymphocytes # 2.1 10^3/uL (0.8-4.8); Lymphocytes % 25.4 %; Mean Corpuscular HGB Conc 32.9 g/dL (30.0-36.0); Mean Corpuscular Hemoglobin 31.4 pg (28.0-34.0); Mean Corpuscular Volume 95.5 fl (81-99); Mean Platelet Volume 10.4 fL (7.4-10.4); Monocytes # 0.6 10^3/uL (0.2-0.9); Monocytes % 7.5 %; Neutrophils # 5.22 10^3/uL (1.8-7.7); Neutrophils % 62.5 %; Nucleated Red Blood Cells % 0 %; Platelet Count 209 10^3/cmm (130-400); Red Blood Count 4.71 10^6/uL (4.1-5.3); Red Cell Distribution Width 13.5 % (12.1-15.1); White Blood Count 8.4 10^3/uL (4.0-10.0)
[2021-10-21 12:20] LABS: Alanine Aminotransferase 9 U/L (0-33); Albumin Level 4.4 g/dL (3.5-5.2); Alkaline Phosphatase 150 IU/L (35-105); Anion Gap 16.2 (5-19); Aspartate Amino Transferase 12 U/L (0-32); Blood Urea Nitrogen 15 mg/dL (6-20); Calcium 9.8 mg/dL (8.5-10.5); Carbon Dioxide 22 mmol/L (22-29); Chloride 104 mmol/L (98-107); Globulin 2.2 g/dL (1.3-4.6); Glucose 92 mg/dL (65-115); Lipase 22 U/L (13-60); Osmolality Calculated 286 mOsm/kg (285-295); Potassium 4.2 mmol/L (3.5-5.1); Sodium 138 mmol/L (136-145); Total Bilirubin 0.3 mg/dL (0.15-1.2); Total Protein 6.6 g/dL (6.6-8.7)
[2021-10-21 12:25] LABS: Add Urine Microscopic? NO; Charge for UA Resulting for Rev
[2021-10-21 12:36] LABS: Bilirubin Urine Neg (Negative); Blood Urine Neg (Negative); Glucose Urine UA Norm (Normal); Ketones Urine Negative (Negative); Leukocyte Esterase Urine Negative (Negative); Nitrate Urine Negative (Negative); Protein Urine Neg (Negative); Urine Appearance Clear (CLEAR); Urine Color Yellow (Yellow); Urobilinogen Urine Norm (Negative); pH Urine 5 (5-7)
== END 2021-10-21 13:38 | disposition home or self-care (01) ==
PROVIDERS: Emergency Provider Family Medicine; PCP Registered Nurse
DX: R10.9 Unspecified abdominal pain (principal); G89.29 Other chronic pain; R11.2 Nausea with vomiting, unspecified; E11.9 Type 2 diabetes mellitus without complications; F17.210 Nicotine dependence, cigarettes, uncomplicated; Z90.710 Acquired absence of both cervix and uterus
CPT/HCPCS: 80053; 81003; 83690; 85025; 99283

== ENCOUNTER → 2021-11-02 07:09 | Outpatient (BNVA) | payer MEDICARE, MEDICAID, SELFPAY | PROVIDERS: PCP Registered Nurse; Visit Provider Nurse Practitioner | DX: F60.3 Borderline personality disorder (principal); F25.0 Schizoaffective disorder, bipolar type | CPT/HCPCS: 99214 ==

== ENCOUNTER 2021-11-04 14:38 | Emergency (ER) | payer MEDICARE, MEDICAID, SELFPAY ==
[2021-11-04 14:50] VITALS: BP 127/69; PULSE 91; RESP 16; TEMP 37; O2SAT 96
--- NOTE | 2021-11-04 15:14 | ECG_ITS ---
[facility] Test Date: 2021-11-04 Pat Name: Latesha Wilhelm Department: Room: Gender: Female Regulatory Compliance Specialist: : [id number] Requested By: Bryant River Order Number: [id number] Alice MD: Severo Aly M.D. Measurements Intervals [place] Rate: 68 P: 58 VT: 157 QRS: 60 QRSD: 104 T: 61 QT: 408 QTc: 436 Interpretive Statements SINUS RHYTHM Compared to ECG 09/22/2021 10:48:37 No significant changes Electronically Signed On 11-04-2021 17:14:34 CDT by Severo Aly M.D. [id number]
[2021-11-04 15:47] LABS: Add Urine Microscopic? NO; Charge for UA Resulting for Rev
[2021-11-04 15:50] LABS: Bilirubin Urine Neg (Negative); Blood Urine Neg (Negative); Glucose Urine UA Norm (Normal); Ketones Urine Negative (Negative); Leukocyte Esterase Urine Negative (Negative); Nitrate Urine Negative (Negative); Protein Urine Neg (Negative); Specific Gravity, Urine 1.005 (1.005-1.030); Urine Appearance Clear (CLEAR); Urine Color Yellow (Yellow); Urobilinogen Urine Norm (Negative); pH Urine 7 (5-7)
--- NOTE | 2021-11-04 15:55 | W.ED.ABDPA2 ---
HPI - Abdominal Pain General: Chief Complaint: Abdominal Pain Stated Complaint: N/V/D/ LUQ PAIN Time Seen by Provider: 11/04/21 15:11 Source: patient Mode of arrival: ambulatory Limitations: no limitations History of Present Illness: 55-year-old female comes in complaining nausea vomiting and abdominal discomfort. He has been here multiple times with abdominal pain she had multiple CTs work-ups for chest pain and abdominal pain. She denies hematochezia melena hematemesis cough cramps no dysuria urgency or frequency no fever sweats or chills. MD elicited complaint: abdominal pain Onset (ago): hour(s) Pain Consistency: constant Location: Epigastric and LUQ Severity: mild Quality: cramping Radiation: none Migration to: no migration Exacerbating factors: nothing Relieving factors: nothing Associated Symptoms: Reports GI cramping, dyspepsia, nausea and poor appetite; Denies anorexia, belching, bloating, change in bowel habits, change in stool character, chills, coffee ground emesis, constipation, diarrhea, dysuria, excessive flatus, fever(s), heartburn, hematochezia, hematuria, hematemesis, fecal incontinence, loose stools, melena, syncope and vomiting Related Data: Date of Last Menstrual Period: 06/19/95 Review of Systems Const: Denies: fever(s) or chills ENMT: Denies: throat pain, ear or mastoid pain, nasal discharge or nasal congestion Card: Denies: chest pain, palpitations or syncope Resp: Denies: dyspnea, productive cough or non-productive cough GI: Reports: abdominal pain, nausea and GI cramping; Denies: vomiting, hematemesis, coffee ground emesis, heartburn, diarrhea, constipation, bloating, belching, excessive flatus, fecal incontinence, change in bowel habits, change in stool character, hematochezia or melena : Denies: flank pain, difficulty voiding, dysuria, urinary frequency, urinary urgency or hematuria Skin/Breast: Denies: rash or pruritus PFSH ED PFSH: Medical History Bladder stone Borderline personality disorder Chronic anxiety Chronic back pain greater than 3 months duration Chronic gastritis without bleeding COPD (chronic obstructive pulmonary disease) Cystitis cystica Dysphagia Esophageal stricture Foreign body in bladder GERD without esophagitis Neurogenic bladder Psychiatric care Restrictive lung disease Schizoaffective disorder, bipolar type Tardive dyskinesia Urgency incontinence Surgical History H/O bladder repair surgery MESH REPAIR H/O colonoscopy with polypectomy H/O esophagogastroduodenoscopy (09/21/20) H/O: hysterectomy History of appendectomy History of breast biopsy History of foot surgery sx in 2009. Screws placed by Dr. Don. History of ureter stent Hx of cholecystectomy S/P bronchoscopy with biopsy Family History Mother No problems noted. Father No problems noted. Other Asthma Cancer Diabetes Heart disease Social History Smoking and tobacco status: current every day smoker (0.5 ppd, started at age 27) cigarettes Packs smoked per day: 1 Years cigarettes smoked: 20 [ Other cigarette details: Hx of 1 PPD x 20 Years, started at age 27] Quit status (tobacco): considering quitting Second hand smoke exposure: Yes Smoking risk assessment/counseling performed?: No Alcohol intake: never Counseling given: No Counseling given: No Lives independently: Yes Household members: spouse Marital status: Number of children: 3 Current occupational status: disabled History of recent travel: No Current gender identity: Female Female Reproductive History: Date of last menstrual period: 06/19/95 Physical Exam Const: COMMON NORMALS: no acute distress GENERAL APPEARANCE: cooperative and comfortable ORIENTATION/CONSCIOUSNESS: Yes awake, Yes oriented to person, Yes oriented to place and Yes oriented to time HENMT: COMMON NORMALS: normocephalic, atraumatic and hearing grossly normal bilaterally HEAD & SCALP: normocephalic and atraumatic Neck/C-Spine: COMMON NORMALS: no JVD Resp: COMMON NORMALS: normal respiratory effort, No retractions, No use of accessory muscles and clear to auscultation bilaterally AUSCULTATION: clear to auscultation bilaterally Cardio: COMMON NORMALS: no JVD, regular rate, regular rhythm and No murmurs present (Cardio) RATE: regular rate RHYTHM: regular rhythm GI: COMMON NORMALS: Soft to palpation and No hepatosplenomegaly present AUSCULTATION: Yes normoactive bowel sounds PALPATION: Yes Soft to palpation, No Tenderness to palpation present (GI), No Guarding due to palpation present (GI) and Yes No hepatosplenomegaly present Extremity: COMMON NORMALS: normal to inspection, capillary refill normal, no clubbing, cyanosis or edema, no calf tenderness and no pedal edema Neuro: SENSORIUM/ORIENTATION: Yes oriented to person, Yes oriented to place and Yes oriented to time Skin: COMMON NORMALS: no rashes or lesions noted GENERAL SKIN EXAM: no rashes or lesions noted Course Vital Signs: Vital signs: Vital Signs Temperature 98.6 F 11/04/21 14:50 Pulse Rate 91 11/04/21 14:50 Respiratory Rate 18 11/04/21 16:24 Blood Pressure 127/69 11/04/21 14:50 Pulse Oximetry 96 11/04/21 14:50 MDM - Abdominal Pain Medical Decision Making Exam is normal. UA unremarkable. We were going to get lab work patient prefers to leave AMA. She is informed she can return at any time. Lab Data Labs/Radiology: Laboratory Results Urine Color Yellow (Yellow) 11/04/21 15:00 Urine Appearance Clear (CLEAR) 11/04/21 15:00 Urine pH 7 (5-7) 11/04/21 15:00 Ur Specific [place] 1.005 (1.005-1.030) 11/04/21 15:00 Urine Protein Neg (Negative) 11/04/21 15:00 Urine Glucose (UA) Norm (Normal) 11/04/21 15:00 Urine Ketones Negative (Negative) 11/04/21 15:00 Urine Blood Neg (Negative) 11/04/21 15:00 Urine Nitrate Negative (Negative) 11/04/21 15:00 Urine Bilirubin Neg (Negative) 11/04/21 15:00 Urine Urobilinogen Norm mg/dL (Negative) 11/04/21 15:00 Ur Leukocyte Esterase Negative (Negative) 11/04/21 15:00 Discharge Plan Discharge Patient Disposition: Left Against Medical Advice Clinical Impression: Abdominal pain Condition: Stable Prescriptions: No Action lamotrigine 200 mg tablet 200 mg PO QAM Qty: 30 1RF fluticasone propionate 50 mcg/actuation spray,suspension 1 spray intranasal BID PRN (Reason: Allergy Symptoms) Qty: 16 1RF Trelegy Ellipta 200-62.5-25 mcg blister with device See Rx Instructions .ROUTE .COMPLEX Qty: 60 0RF Dose Instruction: INHALE 1 PUFF BY MOUTH DAILY. STOP BREO AND IPRATROPIUM Rx Instructions: INHALE 1 PUFF BY MOUTH DAILY. STOP BREO AND IPRATROPIUM trospium 20 mg tablet 20 mg PO BID Qty: 180 0RF Rx Instructions: take on empty stomach MUST MAKE FOLLOW-UP APPOINTMETN FOR FURTHER REFILLS Ingrezza 80 mg capsule 80 mg PO QAM Qty: 30 2RF albuterol sulfate 90 mcg/actuation HFA aerosol inhaler 2 puff inhalation Q6H PRN (Reason: shortness of breath or wheezing) 0RF ipratropium-albuterol 0.5 mg-3 mg(2.5 mg base)/3 mL solution for nebulization 3 ml inhalation Q4H PRN (Reason: Shortness Of Breath Or Wheezing) 0RF Hold Instructions: Doctor's Order acetaminophen [Tylenol Ex Str Rapid Release] 500 mg Tablet 1,000 mg PO Q6H PRN (Reason: Pain) 0RF famotidine 20 mg tablet 20 mg PO QAM 0RF nystatin [Nystop] 100,000 unit/gram powder 1 applic topical BID PRN (Reason: Rash) 0RF ondansetron 4 mg tablet,disintegrating 4 mg PO Q6H PRN (Reason: nausea and vomiting) Qty: 14 0RF citalopram 20 mg tablet 40 mg PO BEDTIME 0RF quetiapine 100 mg tablet 300 mg PO BEDTIME 0RF nitrofurantoin monohyd/m-cryst 100 mg capsule 100 mg PO BID 0RF pantoprazole 40 mg tablet,delayed release (DR/EC) 40 mg PO DAILY 0RF Referrals: Dara Tavera, AMANDEEP [Primary Care Provider] - Patient Instructions: Abdominal Pain (ED) Coding Level of Care Code ED Food Preservation Scientist for Shellie Guallpa
[2021-11-04 16:24] VITALS: RESP 18
== END 2021-11-04 16:24 | disposition left against medical advice (07) ==
PROVIDERS: Emergency Provider Family Medicine; PCP Registered Nurse
DX: Z53.29 Procedure and treatment not carried out because of patient's decision for other reasons (principal); R10.9 Unspecified abdominal pain; F17.210 Nicotine dependence, cigarettes, uncomplicated; Z79.51 Long term (current) use of inhaled steroids
CPT/HCPCS: 81003; 93005; 99283

== ENCOUNTER 2021-11-14 22:08 | Emergency (ER) | payer MEDICARE, MEDICAID, SELFPAY ==
[2021-11-14 22:09] VITALS: BP 124/72; PULSE 90; RESP 18; TEMP 36.4; O2SAT 95; BMI 31.6
--- NOTE | 2021-11-14 22:28 | ED_ITS ---
HPI - Abdominal Pain General: Chief Complaint: Abdominal Pain Stated Complaint: ABD PAIN Time Seen by Provider: 11/14/21 22:10 Source: patient Mode of arrival: EMS Limitations: no limitations History of Present Illness: Patient is a 56-year-old female presents to ED today with a complaint of diffuse abdominal pain, nausea, and vomiting. Patient states symptoms started earlier today. Patient has a longstanding history of chronic abdominal pains. She has been seen in our facility multiple times for identical complaints. She has underwent multiple evaluations and multiple CT scans. Patient tells me her pain today feels similar to previous pains. She is not complaining of any hematemesis. She has not had any changes to bowel movement. No urinary complaints. No fevers. MD elicited complaint: abdominal pain Onset (ago): hour(s) Pain Consistency: constant Location: Diffuse Radiation: none Migration to: no migration Associated Symptoms: Reports nausea and vomiting; Denies change in bowel habits, chills, constipation, diarrhea, dysuria, fever(s), hematuria and hematemesis Related Data: Date of Last Menstrual Period: 06/19/95 Patient : No Review of Systems Const: Denies: fever(s), chills, body aches, fatigue or malaise Card: Denies: chest pain Resp: Denies: dyspnea GI: Reports: abdominal pain, nausea and vomiting; Denies: hematemesis, diarrhea, constipation or change in bowel habits : Denies: flank pain, dysuria or hematuria Musc: Denies: neck pain, back pain, extremity pain or joint pain Skin/Breast: Denies: rash Neuro: Denies: headache(s) PFS ED PFSH: Medical History Bladder stone Borderline personality disorder Chronic anxiety Chronic back pain greater than 3 months duration Chronic gastritis without bleeding COPD (chronic obstructive pulmonary disease) Cystitis cystica Dysphagia Esophageal stricture Foreign body in bladder GERD without esophagitis Neurogenic bladder Psychiatric care Restrictive lung disease Schizoaffective disorder, bipolar type Tardive dyskinesia Urgency incontinence Surgical History H/O bladder repair surgery MESH REPAIR H/O colonoscopy with polypectomy H/O esophagogastroduodenoscopy (09/21/20) H/O: hysterectomy History of appendectomy History of breast biopsy History of foot surgery sx in 2010. Screws placed by Dr. Don. History of ureter stent Hx of cholecystectomy S/P bronchoscopy with biopsy Family History Mother No problems noted. Father No problems noted. Other Asthma Cancer Diabetes Heart disease Social History Smoking and tobacco status: current every day smoker (0.5 ppd, started at age 27) cigarettes Packs smoked per day: 1 Years cigarettes smoked: 20 [ Other cigarette details: Hx of 1 PPD x 20 Years, started at age 27] Quit status (tobacco): considering quitting Second hand smoke exposure: Yes Smoking risk assessment/counseling performed?: No Alcohol intake: never Counseling given: No Counseling given: No Lives independently: Yes Household members: spouse Marital status: Number of children: 3 Current occupational status: disabled History of recent travel: No Current gender identity: Female Female Reproductive History: Date of last menstrual period: 06/19/95 Physical Exam Const: COMMON NORMALS: no acute distress, patient oriented x3, no limitations and alert GENERAL APPEARANCE: cooperative ORIENTATION/CONSCIOUSNESS: Yes awake, Yes oriented to person, Yes oriented to place and Yes oriented to time HENMT: COMMON NORMALS: normocephalic and atraumatic HEAD & SCALP: normocephalic and atraumatic Resp: COMMON NORMALS: normal respiratory effort and clear to auscultation bila terally AUSCULTATION: clear to auscultation bilaterally Cardio: COMMON NORMALS: regular rate and regular rhythm RATE: regular rate RHYTHM: regular rhythm GI: COMMON NORMALS: Normal to inspection, nondistended, normoactive bowel sounds present, Soft to palpation, No hepatosplenomegaly present and no masses INSPECTION: Yes normal to inspection AUSCULTATION: Yes normoactive bowel sounds PALPATION: Yes Soft to palpation, Yes Tenderness to palpation present (GI) (diffuse tenderness w/o guarding or rigidity ) and Yes No hepatosple nomegaly present : COMMON NORMALS: Yes no CVA tenderness BLADDER/KIDNEY EXAM: Yes no CVA tenderness Back/Pelvis: COMMON NORMALS: no CVA tenderness Extremity: COMMON NORMALS: normal to inspection GENERAL: Yes normal exam except as noted Neuro: JEANINE COMA SCALE: document GCS findings [place] coma scale eye opening: Spontaneous Jeanine coma scale verbal response: Orientated Jeanine coma scale motor response: Obey commands [place] coma scale total score: 15 COMMON NORMALS: patient oriented x3, moves all extremities, no focal motor deficits and no sensory deficits noted SENSORIUM/ORIENTATION: Yes alert, Yes oriented to person, Yes oriented to place and Yes oriented to time Skin: COMMON NORMALS: no rashes or lesions noted GENERAL SKIN EXAM: no rashes or lesions noted Course Vital Signs: Vital signs: Vital Signs Temperature 97.5 F L 11/14/21 22:09 Pulse Rate 90 11/14/21 22:09 Respiratory Rate 18 11/14/21 22:52 Blood Pressure 124/72 11/14/21 22:09 Pulse Oximetry 93 11/14/21 22:52 MDM - Abdominal Pain Medical Decision Making Patient feels much better after IV pain/nausea meds given here. Her vital signs are stable. Blood work is non-concerning. Given the chronicity of her symptoms I do not feel we need to proceed with emergent imaging at this time. Re- examination reveals her abdomen is soft and non-tender. Recommend follow-up with her primary care provider this week if possible for re-evaluation. Strict return to ED precautions were verbally discussed with patient who voiced understanding. Lab Data : 11/14/21 22:35 11/14/21 22:35 Labs/Radiology: Laboratory Results WBC 12.2 10^3/uL (4.0-10.0) H 11/14/21 22:35 RBC 4.48 10^6/uL (4.1-5.3) 11/14/21 22:35 Hgb 14.1 g/dL (11.5-15.3) 11/14/21 22:35 Hct 42.2 % (37.0-47.0) 11/14/21 22:35 MCV 94.2 fl (81-99) 11/14/21 22:35 MCH 31.5 pg (28.0-34.0) 11/14/21 22: MCHC 33.4 g/dL (30.0-36.0) 11/14/21 22:35 RDW 13.8 % (12.1-15.1) 11/14/21 22:35 Plt Count 248 10^3/cmm (130-400) 11/14/21 22:35 MPV 10.1 fL (7.4-10.4) 11/14/21 22:35 Neut % (Auto) 71.2 % 11/14/21 22:35 Lymph % (Auto) 17.5 % 11/14/21 22:35 [place] % (Auto) 7.5 % 11/14/21 22:35 Eos % (Auto) 2.8 % 11/14/21 22:35 Baso % (Auto) 0.6 % 11/14/21 22:35 Neut # (Auto) 8.70 10^3/uL (1.8-7.7) H 11/14/21 22: Lymph # (Auto) 2.1 10^3/uL (0.8-4.8) 11/14/21: [place] # (Auto) 0.9 10^3/uL (0.2-0.9) 11/14/21 22: Eos # (Auto) 0.3 10^3/uL (0.0-0.8) 11/14/21: Baso # (Auto) 0.1 10^3/uL (0.0-0.1) 11/14/21 22: Nucleated RBC % (auto) 0 % 11/14/21: Nucleated RBCs # 0.0 /100WBC 11/14/21: Sodium 138 mmol/L (136-145) 11/14/21: Potassium 4.1 mmol/L (3.5-5.1) 11/14/21: Chloride 105 mmol/L (98-107) 11/14/21: Carbon Dioxide 22 mmol/L (22-29) 11/14/21 22: Anion Gap 15.1 (5-19) 11/14/21 22: BUN 19 mg/dL (6-20) 11/14/21: Creatinine 1.1 mg/dL (0.5-0.9) H 11/14/21 22: GFR Calculation 51.8 mL/min (90-130) L 11/14/21 22: Glucose 114 mg/dL (65-115) 11/14/21 22: Calculated Osmolality 289 mOsm/kg (285-295) 11/14/21:35 Calcium 9.0 mg/dL (8.5-10.5) 11/14/21 22:35 Total Bilirubin 0.2 mg/dL (0.15-1.2) 11/14/21 22:35 AST 10 U/L (0-32) 11/14/21 22:35 ALT 8 U/L (0-33) 11/14/21 22:35 Alkaline Phosphatase 140 IU/L (35-105) H 11/14/21 22:35 Total Protein 6.3 g/dL (6.6-8.7) L 11/14/21 22:35 Albumin 3.9 g/dL (3.5-5.2) 11/14/21 22:35 Globulin 2.4 g/dL (1.3-4.6) 11/14/21 22:35 Lipase 31 U/L (13-60) 11/14/21 22:35 Urine Color Yellow (Yellow) 11/15/21 00:07 Urine Appearance Clear (CLEAR) 11/15/21 00:07 Urine pH 5 (5-7) 11/15/21 00:07 Ur Specific [place] 1.020 (1.005-1.030) 11/15/21 00:07 Urine Protein Neg (Negative) 11/15/21 00:07 Urine Glucose (UA) Norm (Normal) 11/15/21 00:07 Urine Ketones Negative (Negative) 11/15/21 00:07 Urine Blood Neg (Negative) 11/15/21 00:07 Urine Nitrate Negative (Negative) 11/15/21 00:07 Urine Bilirubin Neg (Negative) 11/15/21 00:07 Urine Urobilinogen Norm mg/dL (Negative) 11/15/21 00:07 Ur Leukocyte Esterase Negative (Negative) 11/15/21 00:07 Discharge Plan Discharge Patient Disposition: Home Clinical Impression: Chronic abdominal pain Condition: Stable Prescriptions: Continued ondansetron 4 mg tablet,disintegrating 4 mg PO Q6H PRN (Reason: nausea and vomiting) Qty: 14 0RF No Action fluticasone propionate 50 mcg/actuation spray,suspension 1 spray intranasal BID PRN (Reason: Allergy Symptoms) Qty: 16 1RF Trelegy Ellipta 200-62.5-25 mcg blister with device See Rx Instructions .ROUTE .COMPLEX Qty: 60 0RF Dose Instruction: INHALE 1 PUFF BY MOUTH DAILY. STOP BREO AND IPRATROPIUM Rx Instructions: INHALE 1 PUFF BY MOUTH DAILY. STOP BREO AND IPRATROPIUM trospium 20 mg tablet 20 mg PO BID Qty: 180 0RF Rx Instructions: take on empty stomach MUST MAKE FOLLOW-UP APPOINTMETN FOR FURTHER REFILLS Ingrezza 80 mg capsule 80 mg PO QAM Qty: 30 2RF lamotrigine 200 mg tablet 200 mg PO QAM Qty: 30 1RF citalopram 20 mg tablet 40 mg PO BEDTIME Qty: 60 1RF albuterol sulfate 90 mcg/actuation HFA aerosol inhaler 2 puff inhalation Q6H PRN (Reason: shortness of breath or wheezing) 0RF ipratropium-albuterol 0.5 mg-3 mg(2.5 mg base)/3 mL solution for nebulization 3 ml inhalation Q4H PRN (Reason: Shortness Of Breath Or Wheezing) 0RF Hold Instructions: Doctor's Order acetaminophen [Tylenol Ex Str Rapid Release] 500 mg Tablet 1,000 mg PO Q6H PRN (Reason: Pain) 0RF famotidine 20 mg tablet 20 mg PO QAM 0RF nystatin [Nystop] 100,000 unit/gram powder 1 applic topical BID PRN (Reason: Rash) 0RF quetiapine 100 mg tablet 300 mg PO BEDTIME 0RF nitrofurantoin monohyd/m-cryst 100 mg capsule 100 mg PO BID 0RF pantoprazole 40 mg tablet,delayed release (DR/EC) 40 mg PO DAILY 0RF Discharge Orders: Discharge ED (Routine); Ordered 11/15/21 Ordered By: Shayla Jaquez Referrals: Dara Tavera FNP [Primary Care Provider] - Patient Instructions: Abdominal Pain (ED) Coding Level of Care Code ED Court Transcriber for Chg Fwd Exam Comprehensive
[2021-11-14 22:43] VITALS: BP 137/82; PULSE 83; RESP 18; O2SAT 94
[2021-11-14 22:50] LABS: Basophils # 0.1 10^3/uL (0.0-0.1); Basophils % 0.6 %; Eosinophils # 0.3 10^3/uL (0.0-0.8); Eosinophils % 2.8 %; Hematocrit 42.2 % (37.0-47.0); Hemoglobin 14.1 g/dL (11.5-15.3); Lymphocytes # 2.1 10^3/uL (0.8-4.8); Lymphocytes % 17.5 %; Mean Corpuscular HGB Conc 33.4 g/dL (30.0-36.0); Mean Corpuscular Hemoglobin 31.5 pg (28.0-34.0); Mean Corpuscular Volume 94.2 fl (81-99); Mean Platelet Volume 10.1 fL (7.4-10.4); Monocytes # 0.9 10^3/uL (0.2-0.9); Monocytes % 7.5 %; Neutrophils % 71.2 %; Nucleated Red Blood Cells % 0 %; Platelet Count 248 10^3/cmm (130-400); Red Blood Count 4.48 10^6/uL (4.1-5.3); Red Cell Distribution Width 13.8 % (12.1-15.1); White Blood Count 12.2 10^3/uL (4.0-10.0)
[2021-11-14] MEDS: sodium chloride 0.9% 1,000 ML 999 ML IV (22:50)
[2021-11-14] MEDS: ondansetron 2 mg/ML SDV 2 mL 4 MG IVP (22:50)
[2021-11-14 22:52] VITALS: RESP 18; O2SAT 93
[2021-11-14] MEDS: morphine 4 mg/mL SDV 1 mL IVP (22:52)
[2021-11-14 23:13] VITALS: BP 115/75; PULSE 80; RESP 18; O2SAT 94
[2021-11-14 23:13] LABS: Alanine Aminotransferase 8 U/L (0-33); Albumin Level 3.9 g/dL (3.5-5.2); Alkaline Phosphatase 140 IU/L (35-105); Aspartate Amino Transferase 10 U/L (0-32); Blood Urea Nitrogen 19 mg/dL (6-20); Carbon Dioxide 22 mmol/L (22-29); Chloride 105 mmol/L (98-107); Globulin 2.4 g/dL (1.3-4.6); Glomerular Filtration Rate 51.8 mL/min (90-130); Glucose 114 mg/dL (65-115); Lipase 31 U/L (13-60); Osmolality Calculated 289 mOsm/kg (285-295); Sodium 138 mmol/L (136-145); Total Bilirubin 0.2 mg/dL (0.15-1.2); Total Protein 6.3 g/dL (6.6-8.7)
[2021-11-14 23:24] LABS: Anion Gap 15.1 (5-19); Potassium 4.1 mmol/L (3.5-5.1)
[2021-11-14 23:43] VITALS: BP 117/75; PULSE 77; RESP 18; O2SAT 93
[2021-11-15 00:13] VITALS: BP 97/57; PULSE 74; RESP 18; O2SAT 93
[2021-11-15 00:13] LABS: Add Urine Microscopic? NO; Charge for UA Resulting for Rev
[2021-11-15 00:17] LABS: Urine Appearance Clear (CLEAR); Urine Color Yellow (Yellow); pH Urine 5 (5-7)
[2021-11-15 00:18] LABS: Bilirubin Urine Neg (Negative); Blood Urine Neg (Negative); Glucose Urine UA Norm (Normal); Ketones Urine Negative (Negative); Leukocyte Esterase Urine Negative (Negative); Nitrate Urine Negative (Negative); Protein Urine Neg (Negative); Urobilinogen Urine Norm (Negative)
[2021-11-15 00:45] VITALS: BP 96/59; PULSE 70; RESP 20; O2SAT 98
== END 2021-11-15 00:46 | disposition home or self-care (01) ==
PROVIDERS: Emergency Provider Physician Assistant; PCP Registered Nurse
DX: R10.9 Unspecified abdominal pain (principal); G89.29 Other chronic pain
CPT/HCPCS: 80053; 81003; 83690; 85025; 96361; 96374; 96375; 99284; J2270; J2405; J7030

== ENCOUNTER 2021-11-25 19:03 | Emergency (ER) | payer MEDICARE, MEDICAID, SELFPAY ==
[2021-11-25 19:38] VITALS: BP 113/68; PULSE 86; RESP 16; TEMP 37.4; O2SAT 95; BMI 31.6
--- NOTE | 2021-11-25 20:42 | ED_ITS ---
HPI - Abdominal Pain General: Chief Complaint: Abdominal Pain Stated Complaint: ABD PAIN Time Seen by Provider: 11/25/21 20:27 Source: patient and EMS Mode of arrival: EMS Limitations: no limitations History of Present Illness: 56-year-old female who is very well-known to the ER has a history of chronic abdominal pain along with vomiting. Patient states that she has had pain diffusely tonight and has been having vomiting. She denies any worsening improving factors states her pain is currently a 2 out of 10. She denies any fevers. Associated Symptoms: Reports nausea and vomiting; Denies chills, dysuria and fever(s) Related Data: Date of Last Menstrual Period: 06/19/95 Review of Systems Const: Denies: fever(s), chills, body aches or change in appetite Eyes: Denies: blurry vision or eye discomfort ENMT: Denies: throat pain or dental pain Card: Denies: chest pain Resp: Denies: dyspnea GI: Reports: abdominal pain, nausea and vomiting : Denies: dysuria Musc: Denies: neck pain or back pain Skin/Breast: Denies: rash Neuro: Denies: headache(s) Psych: Denies: depression Wilbur/Lymph: Denies: easy bruising All/Imm: Denies: urticaria PFSH ED PFSH: Medical History Bladder stone Borderline personality disorder Chronic anxiety Chronic back pain greater than 3 months duration Chronic gastritis without bleeding COPD (chronic obstructive pulmonary disease) Cystitis cystica Dysphagia Esophageal stricture Foreign body in bladder GERD without esophagitis Neurogenic bladder Psychiatric care Restrictive lung disease Schizoaffective disorder, bipolar type Tardive dyskinesia Urgency incontinence Surgical History H/O bladder repair surgery MESH REPAIR H/O colonoscopy with polypectomy H/O esophagogastroduodenoscopy (09/21/20) H/O: hysterectomy History of appendectomy History of breast biopsy History of foot surgery sx in 2009. Screws placed by Dr. Don. History of ureter stent Hx of cholecystectomy S/P bronchoscopy with biopsy Family History Mother No problems noted. Father No problems noted. Other Asthma Cancer Diabetes Heart disease Social History Smoking and tobacco status: current every day smoker (0.5 ppd, started at age 27) cigarettes Packs smoked per day: 1 Years cigarettes smoked: 20 [ Other cigarette details: Hx of 1 PPD x 20 Years, started at age 27] Quit status (tobacco): considering quitting Second hand smoke exposure: Yes Smoking risk assessment/counseling performed?: No Alcohol intake: never Counseling given: No Counseling given: No Lives independently: Yes Household members: spouse Marital status: Number of children: 3 Current occupational status: disabled History of recent travel: No Current gender identity: Female Female Reproductive History: Date of last menstrual period: 06/19/95 Physical Exam Const: COMMON NORMALS: no acute distress, patient oriented x3 and healthy appearing HENMT: COMMON NORMALS: normocephalic and atraumatic HEAD & SCALP: normocephalic and atraumatic Eye: COMMON NORMALS: Equal, round and reactive pupils present and EOMs intact bilaterally PUPIL: Yes Equal, round and reactive pupils present Neck/C-Spine: COMMON NORMALS: full ROM and supple Chest: COMMONS NORMALS: normal inspection of the chest and normal palpation of entire chest wall Resp: COMMON NORMALS: normal respiratory effort, No retractions, No use of accessory muscles and clear to auscultation bilaterally AUSCULTATION: clear to auscultation bilaterally Cardio: COMMON NORMALS: regular rate, regular rhythm and No murmurs present (Cardio) RATE: regular rate RHYTHM: regular rhythm GI: COMMON NORMALS: Normal to inspection, nondistended, normoactive bowel sounds present, Soft to palpation, non-tender and no masses PALPATION: Yes Soft to palpation Extremity: COMMON NORMALS: normal to inspection and full ROM Neuro: COMMON NORMALS: patient oriented x3, moves all extremities and no focal motor deficits Psych: COMMON NORMALS: mental status grossly normal, Normal thought process present and cooperative THOUGHT PROCESS: Normal thought process present Skin: COMMON NORMALS: no rashes or lesions noted and no wounds GENERAL SKIN EXAM: no rashes or lesions noted Course Vital Signs: Vital signs: Vital Signs Temperature 99.3 F 11/25/21 19:38 Pulse Rate 18 L 11/25/21 22:26 Respiratory Rate 18 11/25/21 22:26 Blood Pressure 116/65 11/25/21 22:26 Pulse Oximetry 95 11/25/21 22:26 MDM - Abdominal Pain Medical Decision Making Patient presents here with abdominal pain is chronic in nature she did have an elevated white count so did a CT scan of her abdomen showed no acute abnormalities her pain here is resolved exam at discharge benign she is to follow-up with PCP return if worsening she understands agrees to plan. Lab Data : 11/25/21 20:42 11/25/21 20:42 Labs/Radiology: Radiology Impressions Abdomen/Pelvis CT 11/25/21 20:51 IMPRESSION: 1. No acute abnormality in the abdomen or pelvis. 2. 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 3. Incidental/nonacute findings are listed in the report. Laboratory Results WBC 19.4 10^3/uL (4.0-10.0) H 11/25/21 20:42 RBC 4.67 10^6/uL (4.1-5.3) 11/25/21 20:42 Hgb 14.9 g/dL (11.5-15.3) 11/25/21 20:42 Hct 42.3 % (37.0-47.0) 11/25/21 20:42 MCV 90.6 fl (81-99) 11/25/21 20:42 MCH 31.9 pg (28.0-34.0) 11/25/21 20:42 MCHC 35.2 g/dL (30.0-36.0) 11/25/21 20:42 RDW 14.3 % (12.1-15.1) 11/25/21 20:42 Plt Count 256 10^3/cmm (130-400) 11/25/21 20:42 MPV 10.5 fL (7.4-10.4) H 11/25/21 20:42 Neut % (Auto) 76.9 % 11/25/21 20:42 Lymph % (Auto) 13.7 % 11/25/21 20:42 [place] % (Auto) 6.2 % 11/25/21 20:42 Eos % (Auto) 2.0 % 11/25/21 20:42 Baso % (Auto) 0.7 % 11/25/21 20:42 Neut # (Auto) 14.89 10^3/uL (1.8-7.7) H 11/25/21 20:42 Lymph # (Auto) 2.7 10^3/uL (0.8-4.8) 11/25/21 20:42 [place] # (Auto) 1.2 10^3/uL (0.2-0.9) H 11/25/21 20:42 Eos # (Auto) 0.4 10^3/uL (0.0-0.8) 11/25/21 20:42 Baso # (Auto) 0.1 10^3/uL (0.0-0.1) 11/25/21 20:42 Nucleated RBC % (auto) 0 % 11/25/21 20:42 Nucleated RBCs # 0.0 /100WBC 11/25/21 20:42 Sodium 139 mmol/L (136-145) 11/25/21 20:42 Potassium 4.0 mmol/L (3.5-5.1) 11/25/21 20:42 Chloride 105 mmol/L (98-107) 11/25/21 20:42 Carbon Dioxide 20 mmol/L (22-29) L 11/25/21 20:42 Anion Gap 18.0 (5-19) 11/25/21 20:42 BUN 18 mg/dL (6-20) 11/25/21 20:42 Creatinine 1.0 mg/dL (0.5-0.9) H 11/25/21 20:42 GFR Calculation 57.8 mL/min (90-130) L 11/25/21 20:42 Glucose 111 mg/dL (65-115) 11/25/21 20:42 Calculated Osmolality 291 mOsm/kg (285-295) 11/25/21 20:42 Calcium 9.3 mg/dL (8.5-10.5) 11/25/21 20:42 Total Bilirubin 0.2 mg/dL (0.15-1.2) 11/25/21 20:42 AST 10 U/L (0-32) 11/25/21 20:42 ALT 8 U/L (0-33) 11/25/21 20:42 Alkaline Phosphatase 151 IU/L (35-105) H 11/25/21 20:42 Total Protein 6.8 g/dL (6.6-8.7) 11/25/21 20:42 Albumin 4.2 g/dL (3.5-5.2) 11/25/21 20:42 Globulin 2.6 g/dL (1.3-4.6) 11/25/21 20:42 Lipase 33 U/L (13-60) 11/25/21 20:42 Urine Color Straw (Yellow) 11/25/21 20:40 Urine Appearance Clear (CLEAR) 11/25/21 20:40 Urine pH 5 (5-7) 11/25/21 20:40 Ur Specific [place] 1.015 (1.005-1.030) 11/25/21 20:40 Urine Protein Neg (Negative) 11/25/21 20:40 Urine Glucose (UA) Norm (Normal) 11/25/21 20:40 Urine Ketones Negative (Negative) 11/25/21 20:40 Urine Blood Neg (Negative) 11/25/21 20:40 Urine Nitrate Negative (Negative) 11/25/21 20:40 Urine Bilirubin Neg (Negative) 11/25/21 20:40 Urine Urobilinogen Norm mg/dL (Negative) 11/25/21 20:40 Ur Leukocyte Esterase Negative (Negative) 11/25/21 20:40 Discharge Plan Discharge Patient Disposition: Home Clinical Impression: Abdominal pain Qualifiers: Abdominal location: generalized Qualified Code(s): R10.84 - Generalized abdominal pain Condition: Stable Prescriptions: No Action fluticasone propionate 50 mcg/actuation spray,suspension 1 spray intranasal BID PRN (Reason: Allergy Symptoms) Qty: 16 1RF Trelegy Ellipta 200-62.5-25 mcg blister with device See Rx Instructions .ROUTE .COMPLEX Qty: 60 0RF Dose Instruction: INHALE 1 PUFF BY MOUTH DAILY. STOP BREO AND IPRATROPIUM Rx Instructions: INHALE 1 PUFF BY MOUTH DAILY. STOP BREO AND IPRATROPIUM trospium 20 mg tablet 20 mg PO BID Qty: 180 0RF Rx Instructions: take on empty stomach MUST MAKE FOLLOW-UP APPOINTMETN FOR FURTHER REFILLS Ingrezza 80 mg capsule 80 mg PO QAM Qty: 30 2RF lamotrigine 200 mg tablet 200 mg PO QAM Qty: 30 1RF citalopram 20 mg tablet 40 mg PO BEDTIME Qty: 60 1RF albuterol sulfate 90 mcg/actuation HFA aerosol inhaler 2 puff inhalation Q6H PRN (Reason: shortness of breath or wheezing) 0RF ipratropium-albuterol 0.5 mg-3 mg(2.5 mg base)/3 mL solution for nebulization 3 ml inhalation Q4H PRN (Reason: Shortness Of Breath Or Wheezing) 0RF Hold Instructions: Doctor's Order acetaminophen [Tylenol Ex Str Rapid Release] 500 mg Tablet 1,000 mg PO Q6H PRN (Reason: Pain) 0RF famotidine 20 mg tablet 20 mg PO QAM 0RF nystatin [Nystop] 100,000 unit/gram powder 1 applic topical BID PRN (Reason: Rash) 0RF quetiapine 100 mg tablet 300 mg PO BEDTIME 0RF nitrofurantoin monohyd/m-cryst 100 mg capsule 100 mg PO BID 0RF pantoprazole 40 mg tablet,delayed release (DR/EC) 40 mg PO DAILY 0RF ondansetron 4 mg tablet,disintegrating 4 mg PO Q6H PRN (Reason: nausea and vomiting) Qty: 14 0RF Discharge Orders: Discharge ED (Routine); Ordered 11/25/21 Ordered By: Damien Urbina Referrals: Gordo Feng DO [Primary Care Provider] - 1-3 days Discharge Diet: Advance as tolerated Discharge Activity: Resume usual activity Patient Instructions: Abdominal Pain (ED) Coding Level of Care Code ED Financial Aid Advisor for Shellie Fwd Exam Comprehensive
[2021-11-25 20:43] VITALS: RESP 18
[2021-11-25] MEDS: ondansetron 2 mg/ML SDV 2 mL 4 MG IM (20:43)
[2021-11-25] MEDS: morphine 4 mg/mL SDV 1 mL IM (20:43)
[2021-11-25 20:47] LABS: Add Urine Microscopic? NO; Charge for UA Resulting for Rev
[2021-11-25 20:48] LABS: Basophils # 0.1 10^3/uL (0.0-0.1); Basophils % 0.7 %; Eosinophils # 0.4 10^3/uL (0.0-0.8); Hematocrit 42.3 % (37.0-47.0); Hemoglobin 14.9 g/dL (11.5-15.3); Lymphocytes # 2.7 10^3/uL (0.8-4.8); Lymphocytes % 13.7 %; Mean Corpuscular HGB Conc 35.2 g/dL (30.0-36.0); Mean Corpuscular Hemoglobin 31.9 pg (28.0-34.0); Mean Corpuscular Volume 90.6 fl (81-99); Mean Platelet Volume 10.5 fL (7.4-10.4); Monocytes # 1.2 10^3/uL (0.2-0.9); Monocytes % 6.2 %; Neutrophils # 14.89 10^3/uL (1.8-7.7); Neutrophils % 76.9 %; Nucleated Red Blood Cells % 0 %; Platelet Count 256 10^3/cmm (130-400); Red Blood Count 4.67 10^6/uL (4.1-5.3); Red Cell Distribution Width 14.3 % (12.1-15.1); White Blood Count 19.4 10^3/uL (4.0-10.0)
[2021-11-25 20:49] VITALS: BP 150/129; PULSE 79; RESP 18; O2SAT 95
--- NOTE | 2021-11-25 20:51 | CTR_ITS ---
PROCEDURE INFORMATION: Exam: CT Abdomen And Pelvis Without Contrast Exam date and time: 11/25/2021 9:02 PM Age: 56 years old Clinical indication: Nausea and vomiting; Abdominal pain; Generalized; Prior surgery; Surgery type: Gb. Hysterectomy. Bladder mesh. Appy. Patient HX: C/O diffuse abd pain with n/v. TECHNIQUE: Imaging protocol: Computed tomography of the abdomen and pelvis without contrast. Sagittal and coronal reformatted images were created and reviewed. Radiation optimization: All CT scans at this facility use at least one of these dose optimization techniques: automated exposure control; mA and/or kV adjustment per patient size (includes targeted exams where dose is matched to clinical indication); or iterative reconstruction. COMPARISON: CT chest abdomen w con* 07/09/2021 5:32 PM RADIATION DOSE METRICS: Total DLP (mGy-cm): 1783.12 FINDINGS: Limitations: Evaluation of solid organs and vasculature is limited without intravenous contrast. Lungs: Visualized lungs are clear. Pleural spaces: No pleural effusion. Heart: Visualized portions of the heart are unremarkable. Liver: The liver is unremarkable. Gallbladder and bile ducts: Stable findings consistent with a previous cholecystectomy. Stable dilatation of the biliary ducts, not unexpected in a patient who has had a prior cholecystectomy. Pancreas: The pancreas is unremarkable. No pancreatic ductal dilatation. Spleen: Multiple calcified granulomas in the spleen. Adrenal glands: The right and left adrenal glands are unremarkable. Kidneys and ureters: The right and left kidneys are unremarkable. The right and left ureters are unremarkable. Stomach and bowel: No acute abnormality in the small bowel. No acute abnormality in the colon. Ingested contents in the stomach. Appendix: Appendix not definitely visualized. No inflammatory changes in the pericecal region however. Intraperitoneal space: No free intraperitoneal air. No ascites. No loculated fluid collections to suggest an abscess. Vasculature: Mild atherosclerotic changes in the visualized arteries. No evidence for aortic aneurysm. Lymph nodes: No lymphadenopathy. Urinary bladder: The bladder is incompletely filled, which can limit evaluation. No focal abnormality in the bladder however. Reproductive: Stable changes consistent with a previous hysterectomy. Stable changes consistent with a previous bilateral oophorectomy. Bones/joints: Degenerative changes in the spine and hips. Linear sclerosis with lucencies at the superior right femoral head. Findings are stable and suspicious for avascular necrosis. Soft tissues: Stable postsurgical changes in the pelvis and left groin. No acute abnormality in the extra-abdominal soft tissues. CT/CT abdomen pelvis wo con [id number] IMPRESSION: 1. No acute abnormality in the abdomen or pelvis. 2. 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 3. Incidental/nonacute findings are listed in the report.
[2021-11-25 20:54] LABS: Bilirubin Urine Neg (Negative); Blood Urine Neg (Negative); Glucose Urine UA Norm (Normal); Ketones Urine Negative (Negative); Leukocyte Esterase Urine Negative (Negative); Nitrate Urine Negative (Negative); Protein Urine Neg (Negative); Specific Gravity, Urine 1.015 (1.005-1.030); Urine Appearance Clear (CLEAR); Urine Color Straw (Yellow); Urobilinogen Urine Norm (Negative); pH Urine 5 (5-7)
[2021-11-25 21:07] LABS: Alanine Aminotransferase 8 U/L (0-33); Albumin Level 4.2 g/dL (3.5-5.2); Alkaline Phosphatase 151 IU/L (35-105); Aspartate Amino Transferase 10 U/L (0-32); Blood Urea Nitrogen 18 mg/dL (6-20); Calcium 9.3 mg/dL (8.5-10.5); Carbon Dioxide 20 mmol/L (22-29); Chloride 105 mmol/L (98-107); Globulin 2.6 g/dL (1.3-4.6); Glomerular Filtration Rate 57.8 mL/min (90-130); Glucose 111 mg/dL (65-115); Lipase 33 U/L (13-60); Osmolality Calculated 291 mOsm/kg (285-295); Sodium 139 mmol/L (136-145); Total Bilirubin 0.2 mg/dL (0.15-1.2); Total Protein 6.8 g/dL (6.6-8.7)
[2021-11-25] MEDS: HYDROcodone-acetaminophen 5-325 mg Tablet 1 TAB PO (22:24)
[2021-11-25 22:26] VITALS: BP 116/65; PULSE 18; RESP 18; O2SAT 95
== END 2021-11-25 22:27 | disposition home or self-care (01) ==
PROVIDERS: Emergency Medicine; Emergency Provider Emergency Medicine; PCP Electrodiagnostic Medicine
DX: R10.84 Generalized abdominal pain (principal); R11.2 Nausea with vomiting, unspecified
CPT/HCPCS: 74176; 80053; 81003; 83690; 85025; 96372; 99283; J2270; J2405

== ENCOUNTER 2021-11-26 04:28 | Emergency (ER) | payer MEDICARE, MEDICAID, SELFPAY ==
--- NOTE | 2021-11-26 04:36 | W.ED.NAVMDI ---
HPI - Nausea/Vomiting/Diarrhea General: Chief complaint: Abdominal Pain Stated complaint: N/V Time Seen by Provider: 11/26/21 04:30 Source: patient Mode of arrival: ambulatory Limitations: no limitations History of Present Illness: 56-year-old female who was seen here earlier tonight for abdominal pain nausea vomiting she had a CT scan that showed no acute findings. Patient states that her Medicaid ride does not come until the morning she still had nausea and vomited once out in the waiting room. She still has some abdominal cramping rates her pain a 2 out of 10 denies any fever. Denies any worsening proving factors. Associated nausea: Yes Associated symtoms: Reports nausea; Denies chest pain, dysuria or headache(s) Review of Systems Const: Denies: fever(s), chills, body aches or change in appetite Eyes: Denies: blurry vision or eye discomfort ENMT: Denies: throat pain or dental pain Card: Denies: chest pain Resp: Denies: dyspnea GI: Reports: abdominal pain, nausea and vomiting : Denies: dysuria Musc: Denies: neck pain or back pain Skin/Breast: Denies: rash Neuro: Denies: headache(s) Psych: Denies: depression Wilbur/Lymph: Denies: easy bruising All/Imm: Denies: urticaria PFSH ED PFSH: Medical History Bladder stone Borderline personality disorder Chronic anxiety Chronic back pain greater than 3 months duration Chronic gastritis without bleeding COPD (chronic obstructive pulmonary disease) Cystitis cystica Dysphagia Esophageal stricture Foreign body in bladder GERD without esophagitis Neurogenic bladder Psychiatric care Restrictive lung disease Schizoaffective disorder, bipolar type Tardive dyskinesia Urgency incontinence Surgical History H/O bladder repair surgery MESH REPAIR H/O colonoscopy with polypectomy H/O esophagogastroduodenoscopy (09/21/20) H/O: hysterectomy History of appendectomy History of breast biopsy History of foot surgery sx in 2009. Screws placed by Dr. Don. History of ureter stent Hx of cholecystectomy S/P bronchoscopy with biopsy Family History Mother No problems noted. Father No problems noted. Other Asthma Cancer Diabetes Heart disease Social History Smoking and tobacco status: current every day smoker (0.5 ppd, started at age 27) cigarettes Packs smoked per day: 1 Years cigarettes smoked: 20 [ Other cigarette details: Hx of 1 PPD x 20 Years, started at age 27] Quit status (tobacco): considering quitting Second hand smoke exposure: Yes Smoking risk assessment/counseling performed?: No Alcohol intake: never Counseling given: No Counseling given: No Lives independently: Yes Household members: spouse Marital status: Number of children: 3 Current occupational status: disabled History of recent travel: No Current gender identity: Female Female Reproductive History: Date of last menstrual period: 06/19/95 Physical Exam Const: COMMON NORMALS: no acute distress, patient oriented x3 and healthy appearing HENMT: COMMON NORMALS: normocephalic and atraumatic HEAD & SCALP: normocephalic and atraumatic Eye: COMMON NORMALS: Equal, round and reactive pupils present and EOMs intact bilaterally PUPIL: Yes Equal, round and reactive pupils present Neck/C-Spine: COMMON NORMALS: full ROM and supple Chest: COMMONS NORMALS: normal inspection of the chest and normal palpation of entire chest wall Resp: COMMON NORMALS: normal respiratory effort, No retractions, No use of accessory muscles and clear to auscultation bilaterally AUSCULTATION: clear to auscultation bilaterally Cardio: COMMON NORMALS: regular rate, regular rhythm and No murmurs present (Cardio) RATE: regular rate RHYTHM: regular rhythm GI: COMMON NORMALS: Normal to inspection, nondistended, normoactive bowel sounds present, Soft to palpation, non-tender and no masses PALPATION: Yes Soft to palpation Extremity: COMMON NORMALS: normal to inspection and full ROM Neuro: COMMON NORMALS: patient oriented x3, moves all extremities and no focal motor deficits Psych: COMMON NORMALS: mental status grossly normal, Normal thought process present and cooperative THOUGHT PROCESS: Normal thought process present Skin: COMMON NORMALS: no rashes or lesions noted and no wounds GENERAL SKIN EXAM: no rashes or lesions noted Course Vital Signs: Vital signs: Vital Signs Temperature 97.1 F L 11/26/21 04:37 Pulse Rate 71 11/26/21 04:37 Respiratory Rate 16 11/26/21 04:54 Blood Pressure 136/74 11/26/21 04:37 Pulse Oximetry 100 11/26/21 04:37 MDM - Nausea/Vomiting/Diarrhea Medical Decision Making Patient presents here with vomiting is much improved after feeding and was able to tolerate p.o. she is well-appearing here stable for discharge we will prescribe her Phenergan suppositories she is to follow-up with her PCP and return if worsening. Discharge Plan Discharge Patient Disposition: Home Clinical Impression: Vomiting Qualifiers: Vomiting type: unspecified Nausea presence: with nausea Qualified Code(s): R11.2 - Nausea with vomiting, unspecified Condition: Stable Prescriptions: New promethazine 25 mg suppository 25 mg UT Q6H PRN (Reason: nausea and vomiting) Qty: 12 0RF No Action fluticasone propionate 50 mcg/actuation spray,suspension 1 spray intranasal BID PRN (Reason: Allergy Symptoms) Qty: 16 1RF Trelegy Ellipta 200-62.5-25 mcg blister with device See Rx Instructions .ROUTE .COMPLEX Qty: 60 0RF Dose Instruction: INHALE 1 PUFF BY MOUTH DAILY. STOP BREO AND IPRATROPIUM Rx Instructions: INHALE 1 PUFF BY MOUTH DAILY. STOP BREO AND IPRATROPIUM trospium 20 mg tablet 20 mg PO BID Qty: 180 0RF Rx Instructions: take on empty stomach MUST MAKE FOLLOW-UP APPOINTMETN FOR FURTHER REFILLS Ingrezza 80 mg capsule 80 mg PO QAM Qty: 30 2RF lamotrigine 200 mg tablet 200 mg PO QAM Qty: 30 1RF citalopram 20 mg tablet 40 mg PO BEDTIME Qty: 60 1RF albuterol sulfate 90 mcg/actuation HFA aerosol inhaler 2 puff inhalation Q6H PRN (Reason: shortness of breath or wheezing) 0RF ipratropium-albuterol 0.5 mg-3 mg(2.5 mg base)/3 mL solution for nebulization 3 ml inhalation Q4H PRN (Reason: Shortness Of Breath Or Wheezing) 0RF Hold Instructions: Doctor's Order acetaminophen [Tylenol Ex Str Rapid Release] 500 mg Tablet 1,000 mg PO Q6H PRN (Reason: Pain) 0RF famotidine 20 mg tablet 20 mg PO QAM 0RF nystatin [Nystop] 100,000 unit/gram powder 1 applic topical BID PRN (Reason: Rash) 0RF quetiapine 100 mg tablet 300 mg PO BEDTIME 0RF nitrofurantoin monohyd/m-cryst 100 mg capsule 100 mg PO BID 0RF pantoprazole 40 mg tablet,delayed release (DR/EC) 40 mg PO DAILY 0RF ondansetron 4 mg tablet,disintegrating 4 mg PO Q6H PRN (Reason: nausea and vomiting) Qty: 14 0RF Discharge Orders: Discharge ED (Routine); Ordered 11/26/21 Ordered By: Damien Urbina Referrals: Gordo Feng DO [Primary Care Provider] - Discharge Diet: Advance as tolerated Discharge Activity: Resume usual activity Patient Instructions: Acute Nausea and Vomiting (ED) Coding Level of Care Code ED Nurse Anesthetist for Basi[place] Fwd Exam Comprehensive
[2021-11-26 04:37] VITALS: BP 136/74; PULSE 71; RESP 20; TEMP 36.2; O2SAT 100; BMI 31.6
[2021-11-26 04:54] VITALS: RESP 16
[2021-11-26] MEDS: promethazine 25 mg/mL SDV 1 mL IM (04:54)
[2021-11-26] MEDS: morphine 4 mg/mL SDV 1 mL IM (04:54)
[2021-11-26 05:29] VITALS: BP 155/78; PULSE 89; RESP 16; O2SAT 94
== END 2021-11-26 05:33 | disposition home or self-care (01) ==
PROVIDERS: Emergency Provider Emergency Medicine; PCP Electrodiagnostic Medicine
DX: R11.2 Nausea with vomiting, unspecified (principal); F17.210 Nicotine dependence, cigarettes, uncomplicated
CPT/HCPCS: 96372; 99283; J2270; J2550

== ENCOUNTER → 2021-11-30 07:06 | Outpatient (BNVA) | payer MEDICARE, MEDICAID, SELFPAY | PROVIDERS: PCP Electrodiagnostic Medicine; Visit Provider Nurse Practitioner | DX: G24.01 Drug induced subacute dyskinesia (principal); F60.3 Borderline personality disorder; F25.0 Schizoaffective disorder, bipolar type | CPT/HCPCS: 99214 ==

== ENCOUNTER 2021-12-12 23:22 | Emergency (ER) | payer MEDICARE, MEDICAID, SELFPAY ==
[2021-12-13 00:02] VITALS: BP 93/64; PULSE 86; RESP 18; TEMP 36.5; O2SAT 95; BMI 32.4
[2021-12-13 00:55] LABS: Basophils # 0.1 10^3/uL (0.0-0.1); Basophils % 0.9 %; Eosinophils # 0.4 10^3/uL (0.0-0.8); Eosinophils % 3.2 %; Hemoglobin 14.9 g/dL (11.5-15.3); Lymphocytes # 2.5 10^3/uL (0.8-4.8); Lymphocytes % 21.9 %; Mean Corpuscular HGB Conc 34.7 g/dL (30.0-36.0); Mean Corpuscular Hemoglobin 31.8 pg (28.0-34.0); Mean Corpuscular Volume 91.9 fl (81-99); Mean Platelet Volume 10.7 fL (7.4-10.4); Monocytes # 0.8 10^3/uL (0.2-0.9); Monocytes % 7.2 %; Neutrophils # 7.47 10^3/uL (1.8-7.7); Neutrophils % 66.5 %; Nucleated Red Blood Cells % 0 %; Platelet Count 240 10^3/cmm (130-400); Red Blood Count 4.68 10^6/uL (4.1-5.3); Red Cell Distribution Width 14.6 % (12.1-15.1); White Blood Count 11.2 10^3/uL (4.0-10.0)
[2021-12-13 00:56] VITALS: RESP 16
[2021-12-13] MEDS: morphine 4 mg/mL SDV 1 mL IVP ×2 (00:56→02:10)
[2021-12-13] MEDS: ondansetron 2 mg/ML SDV 2 mL 4 MG IVP (00:56)
[2021-12-13 01:12] LABS: Alanine Aminotransferase 10 U/L (0-33); Albumin Level 4.3 g/dL (3.5-5.2); Alkaline Phosphatase 140 IU/L (35-105); Anion Gap 14.9 (5-19); Aspartate Amino Transferase 11 U/L (0-32); Blood Urea Nitrogen 19 mg/dL (6-20); Carbon Dioxide 24 mmol/L (22-29); Chloride 106 mmol/L (98-107); Globulin 2.7 g/dL (1.3-4.6); Glomerular Filtration Rate 51.8 mL/min (90-130); Glucose 94 mg/dL (65-115); Lipase 27 U/L (13-60); Osmolality Calculated 294 mOsm/kg (285-295); Potassium 3.9 mmol/L (3.5-5.1); Sodium 141 mmol/L (136-145); Total Bilirubin 0.2 mg/dL (0.15-1.2)
[2021-12-13 01:31] VITALS: BP 134/70; O2SAT 99
[2021-12-13 01:37] LABS: Add Urine Microscopic? NO; Charge for UA Resulting for Rev
[2021-12-13 01:41] LABS: Protein Urine Neg (Negative); Specific Gravity, Urine 1.025 (1.005-1.030); Urine Appearance Clear (CLEAR); Urine Color Yellow (Yellow); pH Urine 5 (5-7)
[2021-12-13 01:42] LABS: Bilirubin Urine Neg (Negative); Blood Urine Neg (Negative); Glucose Urine UA Norm (Normal); Ketones Urine Negative (Negative); Leukocyte Esterase Urine Negative (Negative); Nitrate Urine Negative (Negative); Urobilinogen Urine Norm (Negative)
--- NOTE | 2021-12-13 02:04 | XRR_ITS ---
PROCEDURE INFORMATION: Exam: XR Abdomen Exam date and time: 12/13/2021 2:22 AM Age: 56 years old Clinical indication: Nausea and vomiting; Abdominal pain; Generalized; Prior surgery; Surgery type: Gb. Appy. Bladder mesh. Hysterectomy. Patient HX: Diffuse abd pain with n/v/d. TECHNIQUE: Imaging protocol: Radiologic exam of the abdomen. Views: Frontal supine view of the abdomen. 1 View. COMPARISON: CT abdomen pelvis con [id number] 11/25/2021 9:02 PM FINDINGS: Gastrointestinal tract: There is a mildly dilated small bowel loop seen in the left upper quadrant, finding that could represent ileus. Moderate stool is present within the colon. Bones/joints: Unremarkable. XR/XR KUB portable [id number] IMPRESSION: 1. Mildly dilated small bowel loops in the left upper quadrant could represent ileus. 2. Moderate stool is present within the colon.
[2021-12-13 02:10] VITALS: RESP 16; O2SAT 97
[2021-12-13 02:37] VITALS: BP 93/57; RESP 18; O2SAT 97
--- NOTE | 2021-12-13 02:42 | ED_ITS ---
HPI - Abdominal Pain General: Chief Complaint: Abdominal Pain Stated Complaint: abdominal pain Time Seen by Provider: 12/13/21 00:51 Source: patient History of Present Illness: 56 yo female well known to the emergency department. She presents by ambulance complaining of chronic abdominal pain exacerbation, similar to her prior episodes. She notes pain to the lower abdomen diffusely. No fever, although she notes she has been vomiting. No diarrhea. She has been seen multiple times for similar complaints. She has had multiple CT scans for the same complaint. MD elicited complaint: abdominal pain Pertinent past history: other Onset (ago): day(s) (3) Pain Consistency: constant Location: Diffuse Severity: moderate Quality: cramping, stabbing and aching Radiation: none Migration to: no migration Exacerbating factors: vomiting Relieving factors: nothing Associated Symptoms: Reports bloating and constipation; Denies chills, coffee ground emesis, diarrhea, dyspepsia, dysuria and hematuria Related Data: Date of Last Menstrual Period: 06/19/95 Review of Systems Const: Denies: chills GI: Reports: constipation and bloating; Denies: coffee ground emesis or diarrhea : Denies: dysuria or hematuria [facility] ED PFSH: Medical History Bladder stone Borderline personality disorder Chronic anxiety Chronic back pain greater than 3 months duration Chronic gastritis without bleeding COPD (chronic obstructive pulmonary disease) Cystitis cystica Dysphagia Esophageal stricture Foreign body in bladder GERD without esophagitis Neurogenic bladder Psychiatric care Restrictive lung disease Schizoaffective disorder, bipolar type Tardive dyskinesia Urgency incontinence Surgical History H/O bladder repair surgery MESH REPAIR H/O colonoscopy with polypectomy H/O esophagogastroduodenoscopy (09/21/20) H/O: hysterectomy History of appendectomy History of breast biopsy History of foot surgery sx in 2009. Screws placed by Dr. Don. History of ureter stent Hx of cholecystectomy S/P bronchoscopy with biopsy Family History Mother No problems noted. Father No problems noted. Other Asthma Cancer Diabetes Heart disease Social History Smoking and tobacco status: current every day smoker (0.5 ppd, started at age 27) cigarettes Packs smoked per day: 1 Years cigarettes smoked: 20 [ Other c igarette details: Hx of 1 PPD x 20 Years, started at age 27] Quit status (tobacco): considering quitting Second hand smoke exposure: Yes Smoking risk assessment/counseling performed?: No Alcohol intake: never Counseling given: No Counseling given: No Lives independently: Yes Household members: spouse Marital status: Number of children: 3 Current occupational status: disabled History of recent travel: No Current gender identity: Female Female Reproductive History: Date of last menstrual period: 06/19/95 Physical Exam Const: COMMON NORMALS: no acute distress GENERAL APPEARANCE: cooperative and comfortable; not ill appearing HENMT: COMMON NORMALS: normocephalic and Normal external nose present HEAD & SCALP: normocephalic FACE & SINUS: normal facial exam NOSE: Normal external nose present MOUTH: Normal oral and palatal mucosa present Eye: COMMON NORMALS: Equal, round and reactive pupils present and EOMs intact bilaterally PUPIL: Yes Equal, round and reactive pupils present Chest: Breast/axilla inspection: Yes no chest deformity, asymmetry, normal contours, no nodules, masses, tenderness Resp: COMMON NORMALS: normal respiratory effort, No retractions, No use of accessory muscles and clear to auscultation bilaterally AUSCULTATION: clear to auscultation bilaterally Cardio: COMMON NORMALS: regular rate and regular rhythm RATE: regular rate RHYTHM: regular rhythm GI: COMMON NORMALS: Normal to inspection, nondistended, normoactive bowel sounds present and Soft to palpation PALPATION: Yes Soft to palpation and Yes Tenderness to palpation present (GI) (diffuse) Course Vital Signs: Vital signs: Vital Signs Temperature 97.7 F 12/13/21 00:02 Pulse Rate 70 12/13/21 02:58 Respiratory Rate 18 12/13/21 02:58 Blood Pressure 90/65 12/13/21 02:58 Pulse Oximetry 96 12/13/21 02:58 MDM - Abdominal Pain Medical Decision Making Lab benign. Xray shows some constipation without true sbo or other findings. will rx laxative and have him go frmo there. Lab Data : 12/13/21 00:39 12/13/21 00:39 Labs/Radiology: Radiology Impressions KUB X-Ray 12/13/21 02:04 IMPRESSION: 1. Mildly dilated small bowel loops in the left upper quadrant could represent ileus. 2. Moderate stool is present within the colon. Laboratory Results WBC 11.2 10^3/uL (4.0-10.0) H 12/13/21 00:39 RBC 4.68 10^6/uL (4.1-5.3) 12/13/21 00:39 Hgb 14.9 g/dL (11.5-15.3) 12/13/21 00:39 Hct 43.0 % (37.0-47.0) 12/13/21 00:39 MCV 91.9 fl (81-99) 12/13/21 00:39 MCH 31.8 pg (28.0-34.0) 12/13/21 00:39 MCHC 34.7 g/dL (30.0-36.0) 12/13/21 00:39 RDW 14.6 % (12.1-15.1) 12/13/21 00:39 Plt Count 240 10^3/cmm (130-400) 12/13/21 00:39 MPV 10.7 fL (7.4-10.4) H 12/13/21 00:39 Neut % (Auto) 66.5 % 12/13/21 00:39 Lymph % (Auto) 21.9 % 12/13/21 00:39 [place] % (Auto) 7.2 % 12/13/21 00:39 Eos % (Auto) 3.2 % 12/13/21 00:39 Baso % (Auto) 0.9 % 12/13/21 00:39 Neut # (Auto) 7.47 10^3/uL (1.8-7.7) 12/13/21 00:39 Lymph # (Auto) 2.5 10^3/uL (0.8-4.8) 12/13/21 00:39 [place] # (Auto) 0.8 10^3/uL (0.2-0.9) 12/13/21 00:39 Eos # (Auto) 0.4 10^3/uL (0.0-0.8) 12/13/21 00:39 Baso # (Auto) 0.1 10^3/uL (0.0-0.1) 12/13/21 00:39 Nucleated RBC % (auto) 0 % 12/13/21 00:39 Nucleated RBCs # 0.0 /100WBC 12/13/21 00:39 Sodium 141 mmol/L (136-145) 12/13/21 00:39 Potassium 3.9 mmol/L (3.5-5.1) 12/13/21 00:39 Chloride 106 mmol/L (98-107) 12/13/21 00:39 Carbon Dioxide 24 mmol/L (22-29) 12/13/21 00:39 Anion Gap 14.9 (5-19) 12/13/21 00:39 BUN 19 mg/dL (6-20) 12/13/21 00:39 Creatinine 1.1 mg/dL (0.5-0.9) H 12/13/21 00:39 GFR Calculation 51.8 mL/min (90-130) L 12/13/21 00:39 Glucose 94 mg/dL (65-115) 12/13/21 00:39 Calculated Osmolality 294 mOsm/kg (285-295) 12/13/21 00:39 Calcium 9.0 mg/dL (8.5-10.5) 12/13/21 00:39 Total Bilirubin 0.2 mg/dL (0.15-1.2) 12/13/21 00:39 AST 11 U/L (0-32) 12/13/21 00:39 ALT 10 U/L (0-33) 12/13/21 00:39 Alkaline Phosphatase 140 IU/L (35-105) H 12/13/21 00:39 Total Protein 7.0 g/dL (6.6-8.7) 12/13/21 00:39 Albumin 4.3 g/dL (3.5-5.2) 12/13/21 00:39 Globulin 2.7 g/dL (1.3-4.6) 12/13/21 00:39 Lipase 27 U/L (13-60) 12/13/21 00:39 Urine Color Yellow (Yellow) 12/13/21 01:31 Urine Appearance Clear (CLEAR) 12/13/21 01:31 Urine pH 5 (5-7) 12/13/21 01:31 Ur Specific [place] 1.025 (1.005-1.030) 12/13/21 01:31 Urine Protein Neg (Negative) 12/13/21 01:31 Urine Glucose (UA) Norm (Normal) 12/13/21 01:31 Urine Ketones Negative (Negative) 12/13/21 01:31 Urine Blood Neg (Negative) 12/13/21 01:31 Urine Nitrate Negative (Negative) 12/13/21 01:31 Urine Bilirubin Neg (Negative) 12/13/21 01:31 Urine Urobilinogen Norm mg/dL (Negative) 12/13/21 01:31 Ur Leukocyte Esterase Negative (Negative) 12/13/21 01:31 Discharge Plan Discharge Patient Disposition: Home Clinical Impression: Abdominal pain Condition: Stable Prescriptions: Continued ondansetron 4 mg tablet,disintegrating 4 mg PO Q6H PRN (Reason: nausea and vomiting) Qty: 14 0RF No Action citalopram 20 mg tablet 40 mg PO BEDTIME Qty: 60 1RF lamotrigine 200 mg tablet 200 mg PO QAM Qty: 30 1RF hydroxyzine pamoate 50 mg capsule See Rx Instructions .ROUTE .COMPLEX 30 Days Qty: 150 1RF Rx Instructions: 50mg tid at 0800,1300,1700, and 100 mg at 2100 fluticasone propionate 50 mcg/actuation spray,suspension 1 spray intranasal BID PRN (Reason: Allergy Symptoms) Qty: 16 1RF Trelegy Ellipta 200-62.5-25 mcg blister with device See Rx Instructions .ROUTE .COMPLEX Qty: 60 0RF Dose Instruction: INHALE 1 PUFF BY MOUTH DAILY. STOP BREO AND IPRATROPIUM Rx Instructions: INHALE 1 PUFF BY MOUTH DAILY. STOP BREO AND IPRATROPIUM trospium 20 mg tablet 20 mg PO BID Qty: 180 0RF Rx Instructions: take on empty stomach MUST MAKE FOLLOW-UP APPOINTMETN FOR FURTHER REFILLS Ingrezza 80 mg capsule 80 mg PO QAM Qty: 30 2RF quetiapine [Seroquel] 300 mg tablet 300 mg PO .HS Qty: 30 2RF albuterol sulfate 90 mcg/actuation HFA aerosol inhaler 2 puff inhalation Q6H PRN (Reason: shortness of breath or wheezing) 0RF ipratropium-albuterol 0.5 mg-3 mg(2.5 mg base)/3 mL solution for nebulization 3 ml inhalation Q4H PRN (Reason: Shortness Of Breath Or Wheezing) 0RF Hold Instructions: Doctor's Order acetaminophen [Tylenol Ex Str Rapid Release] 500 mg Tablet 1,000 mg PO Q6H PRN (Reason: Pain) 0RF famotidine 20 mg tablet 20 mg PO QAM 0RF nystatin [Nystop] 100,000 unit/gram powder 1 applic topical BID PRN (Reason: Rash) 0RF nitrofurantoin monohyd/m-cryst 100 mg capsule 100 mg PO BID 0RF pantoprazole 40 mg tablet,delayed release (DR/EC) 40 mg PO DAILY 0RF promethazine 25 mg suppository 25 mg AL Q6H PRN (Reason: nausea and vomiting) Qty: 12 0RF Discharge Orders: Discharge ED (Routine); Ordered 12/13/21 Ordered By: Chivo Deleon Referrals: Gordo Feng DO [Primary Care Provider] - 4-7 days Patient Instructions: Abdominal Pain (ED) Activity Restrictions/Additional Instructions: Return for fever greater than 100, vomiting liquids or medications, any other concerning symptoms. Coding Level of Care Code ED Electrician Third for Shellie Guallpa
[2021-12-13 02:58] VITALS: BP 90/65; PULSE 70; RESP 18; O2SAT 96
== END 2021-12-13 02:59 | disposition home or self-care (01) ==
PROVIDERS: Emergency Provider Emergency Medicine; PCP Electrodiagnostic Medicine
DX: R10.9 Unspecified abdominal pain (principal); F17.210 Nicotine dependence, cigarettes, uncomplicated; J44.9 Chronic obstructive pulmonary disease, unspecified
CPT/HCPCS: 74018; 80053; 81003; 83690; 85025; 96374; 96375; 96376; 99284; J2270; J2405

== ENCOUNTER 2021-12-26 22:28 | Emergency (ER) | payer MEDICARE, MEDICAID, SELFPAY ==
[2021-12-26 22:31] VITALS: PULSE 120; RESP 16; TEMP 37.9; O2SAT 93; BMI 31.6
[2021-12-27 00:07] VITALS: BP 136/89; PULSE 112; RESP 18; O2SAT 95
--- NOTE | 2021-12-27 00:37 | XRR_ITS ---
PROCEDURE INFORMATION: Exam: XR Abdomen Exam date and time: 12/27/2021 12:43 AM Age: 56 years old Clinical indication: Nausea and vomiting; Additional info: N/v TECHNIQUE: Imaging protocol: Radiologic exam of the abdomen. Views: Frontal supine view of the abdomen. 1 View. COMPARISON: CR (ABDOMEN, ) 12/13/2021 2:22 AM FINDINGS: Gastrointestinal tract: Abundant stool is present within the colon. Bones/joints: Unremarkable. XR/XR KUB [id number] IMPRESSION: Abundant stool is present within the colon.
[2021-12-27 00:58] LABS: Basophils # 0.1 10^3/uL (0.0-0.1); Basophils % 0.7 %; Eosinophils # 0.2 10^3/uL (0.0-0.8); Eosinophils % 1.6 %; Hematocrit 39.4 % (37.0-47.0); Hemoglobin 12.9 g/dL (11.5-15.3); Lymphocytes # 0.4 10^3/uL (0.8-4.8); Lymphocytes % 3.1 %; Mean Corpuscular HGB Conc 32.7 g/dL (30.0-36.0); Mean Corpuscular Hemoglobin 31.1 pg (28.0-34.0); Mean Corpuscular Volume 94.9 fl (81-99); Mean Platelet Volume 10.3 fL (7.4-10.4); Monocytes # 1.6 10^3/uL (0.2-0.9); Monocytes % 12.9 %; Neutrophils % 80.7 %; Nucleated Red Blood Cells % 0 %; Platelet Count 165 10^3/cmm (130-400); Red Blood Count 4.15 10^6/uL (4.1-5.3); Red Cell Distribution Width 14.6 % (12.1-15.1); White Blood Count 12.2 10^3/uL (4.0-10.0)
[2021-12-27] MEDS: ondansetron 2 mg/ML SDV 2 mL 4 MG IVP (01:04)
[2021-12-27] MEDS: sodium chloride 0.9% 500 ML 999 ML IV (01:04)
[2021-12-27 01:07] VITALS: BP 111/41; PULSE 106; RESP 16; O2SAT 94
--- NOTE | 2021-12-27 01:12 | ED_ITS ---
HPI - Abdominal Pain General: Chief Complaint: Abdominal Pain Stated Complaint: Abd Pain Time Seen by Provider: 12/27/21 00:36 History of Present Illness: Patient presents today with complaints of abdominal discomfort. Patient states that she has been diagnosed with irritable bowel syndrome constipation variety. Patient appears nontoxic. Patient appears in mild to no pain. Patient has a history of COPD, substance use disorder, GERD, adjustment disorder, personality disorder. Associated Symptoms: Denies nausea and vomiting Related Data: Date of Last Menstrual Period: 06/19/95 Review of Systems General: Reports: 10 or more systems reviewed and unremarkable except in HPI and below Card: Denies: chest pain Resp: Denies: dyspnea GI: Reports: abdominal pain; Denies: nausea or vomiting Skin/Breast: Denies: rash PFSH ED PFSH: Medical History Bladder stone Borderline personality disorder Chronic anxiety Chronic back pain greater than 3 months duration Chronic gastritis without bleeding COPD (chronic obstructive pulmonary disease) Cystitis cystica Dysphagia Esophageal stricture Foreign body in bladder GERD without esophagitis Neurogenic bladder Psychiatric care Restrictive lung disease Schizoaffective disorder, bipolar type Tardive dyskinesia Urgency incontinence Surgical History H/O bladder repair surgery MESH REPAIR H/O colonoscopy with polypectomy H/O esophagogastroduodenoscopy (09/21/20) H/O: hysterectomy History of appendectomy History of breast biopsy History of foot surgery sx in 2009. Screws placed by Dr. Don. History of ureter stent Hx of cholecystectomy S/P bronchoscopy with biopsy Family History Mother No problems noted. Father No problems noted. Other Asthma Cancer Diabetes Heart disease Social History Smoking and tobacco status: current every day smoker (0.5 ppd, started at age 27) cigarettes Packs smoked per day: 1 Years cigarettes smoked: 20 [ Other cigarette details: Hx of 1 PPD x 20 Years, started at age 27] Quit status (tobacco): considering quitting Second hand smoke exposure: Yes Smoking risk assessment/counseling performed?: No Alcohol intake: never Counseling given: No Counseling given: No Lives independently: Yes Household members: spouse Marital status: Number of children: 3 Current occupational status: disabled History of recent travel: No Current gender identity: Female Female Reproductive History: Date of last menstrual period: 06/19/95 Physical Exam Const: COMMON NORMALS: alert HENMT: COMMON NORMALS: normocephalic HEAD & SCALP: normocephalic Neck/C-Spine: COMMON NORMALS: full ROM Resp: COMMON NORMALS: normal respiratory effort and clear to auscultation b ilaterally AUSCULTATION: clear to auscultation bilaterally Cardio: COMMON NORMALS: regular rate and regular rhythm RATE: regular rate RHYTHM: regular rhythm GI: COMMON NORMALS: Soft to palpation AUSCULTATION: Yes normoactive bowel sounds PALPATION: Yes Soft to palpation and Yes Tenderness to palpation present (GI) (Mild generalized) Extremity: COMMON NORMALS: normal to inspection Neuro: SENSORIUM/ORIENTATION: Yes alert Skin: COMMON NORMALS: no rashes or lesions noted GENERAL SKIN EXAM: no rashes or lesions noted Course Vital Signs: Vital signs: Vital Signs Temperature 100.2 F H 12/26/21 22:31 Pulse Rate 106 H 12/27/21 01:07 Respiratory Rate 16 12/27/21 01:07 Blood Pressure 111/41 12/27/21 01:07 Pulse Oximetry 94 12/27/21 01:07 MDM - Abdominal Pain Medical Decision Making Patient presents today with complaints of abdominal pain. Patient states that she has a history of irritable bowel syndrome with constipation variety. Patient reports worsening symptoms today. On exam lungs are clear to auscultation. Abdomen soft and mild generalized tenderness. Vital signs were normal. Differential diagnosis includes bowel obstruction, irritable bowel syndrome, drug-seeking behavior. Labs noted a WBCs of 12.2, hemoglobin 12.9, sodium of 137, potassium 4.3, BUN 21, glucose 122. No other significant abnormalities were noted in labs. KUB noted some constipation. Suspect patient's pain is secondary to her IBS with constipation. Patient was given 500 mL bolus of fluids, along with 4 mg of Zofran and 20 mg of ketamine. Patient's pain did improve for short time but then returned as the ketamine wore off. Patient was given 4 mg of morphine IV with better effect. Patient was released to home to follow-up with specialist. Patient reports understanding of care plan and need for return to the ER as needed. Lab Data : 12/27/21 00:54 12/27/21 00:54 Labs/Radiology: Laboratory Results WBC 12.2 10^3/uL (4.0-10.0) H 12/27/21 00:54 RBC 4.15 10^6/uL (4.1-5.3) 12/27/21 00:54 Hgb 12.9 g/dL (11.5-15.3) 12/27/21 00:54 Hct 39.4 % (37.0-47.0) 12/27/21 00:54 MCV 94.9 fl (81-99) 12/27/21 00:54 MCH 31.1 pg (28.0-34.0) 12/27/21 00:54 MCHC 32.7 g/dL (30.0-36.0) 12/27/21 00:54 RDW 14.6 % (12.1-15.1) 12/27/21 00:54 Plt Count 165 10^3/cmm (130-400) 12/27/21 00:54 MPV 10.3 fL (7.4-10.4) 12/27/21 00:54 Neut % (Auto) 80.7 % 12/27/21 00:54 Lymph % (Auto) 3.1 % 12/27/21 00:54 [place] % (Auto) 12.9 % 12/27/21 00:54 Eos % (Auto) 1.6 % 12/27/21 00:54 Baso % (Auto) 0.7 % 12/27/21 00:54 Neut # (Auto) 9.80 10^3/uL (1.8-7.7) H 12/27/21 00:54 Lymph # (Auto) 0.4 10^3/uL (0.8-4.8) L 12/27/21 00:54 [place] # (Auto) 1.6 10^3/uL (0.2-0.9) H 12/27/21 00:54 Eos # (Auto) 0.2 10^3/uL (0.0-0.8) 12/27/21 00:54 Baso # (Auto) 0.1 10^3/uL (0.0-0.1) 12/27/21 00:54 Nucleated RBC % (auto) 0 % 12/27/21 00:54 Nucleated RBCs # 0.0 /100WBC 12/27/21 00:54 Sodium 137 mmol/L (136-145) 12/27/21 00:54 Potassium 4.3 mmol/L (3.5-5.1) 12/27/21 00:54 Chloride 104 mmol/L (98-107) 12/27/21 00:54 Carbon Dioxide 20 mmol/L (22-29) L 12/27/21 00:54 Anion Gap 17.3 (5-19) 12/27/21 00:54 BUN 21 mg/dL (6-20) H 12/27/21 00:54 Creatinine 0.9 mg/dL (0.5-0.9) 12/27/21 00:54 GFR Calculation 65.2 mL/min (90-130) L 12/27/21 00:54 Glucose 122 mg/dL (65-115) H 12/27/21 00:54 Calculated Osmolality 288 mOsm/kg (285-295) 12/27/21 00:54 Calcium 8.9 mg/dL (8.5-10.5) 12/27/21 00:54 Total Bilirubin 0.2 mg/dL (0.15-1.2) 12/27/21 00:54 AST 25 U/L (0-32) 12/27/21 00:54 ALT 33 U/L (0-33) 12/27/21 00:54 Alkaline Phosphatase 125 IU/L (35-105) H 12/27/21 00:54 Total Protein 6.5 g/dL (6.6-8.7) L 12/27/21 00:54 Albumin 4.0 g/dL (3.5-5.2) 12/27/21 00:54 Globulin 2.5 g/dL (1.3-4.6) 12/27/21 00:54 Lipase 20 U/L (13-60) 12/27/21 00:54 Discharge Plan Discharge Condition: Stable Prescriptions: No Action citalopram 20 mg tablet 40 mg PO BEDTIME Qty: 60 1RF lamotrigine 200 mg tablet 200 mg PO QAM Qty: 30 1RF hydroxyzine pamoate 50 mg capsule See Rx Instructions .ROUTE .COMPLEX 30 Days Qty: 150 1RF Rx Instructions: 50mg tid at 0800,1300,1700, and 100 mg at 2100 fluticasone propionate 50 mcg/actuation spray,suspension 1 spray intranasal BID PRN (Reason: Allergy Symptoms) Qty: 16 1RF Trelegy Ellipta 200-62.5-25 mcg blister with device See Rx Instructions .ROUTE .COMPLEX Qty: 60 0RF Dose Instruction: INHALE 1 PUFF BY MOUTH DAILY. STOP BREO AND IPRATROPIUM Rx Instructions: INHALE 1 PUFF BY MOUTH DAILY. STOP BREO AND IPRATROPIUM trospium 20 mg tablet 20 mg PO BID Qty: 180 0RF Rx Instructions: take on empty stomach MUST MAKE FOLLOW-UP APPOINTMETN FOR FURTHER REFILLS Ingrezza 80 mg capsule 80 mg PO QAM Qty: 30 2RF quetiapine [Seroquel] 300 mg tablet 300 mg PO .HS Qty: 30 2RF albuterol sulfate 90 mcg/actuation HFA aerosol inhaler 2 puff inhalation Q6H PRN (Reason: shortness of breath or wheezing) 0RF ipratropium-albuterol 0.5 mg-3 mg(2.5 mg base)/3 mL solution for nebulization 3 ml inhalation Q4H PRN (Reason: Shortness Of Breath Or Wheezing) 0RF Hold Instructions: Doctor's Order acetaminophen [Tylenol Ex Str Rapid Release] 500 mg Tablet 1,000 mg PO Q6H PRN (Reason: Pain) 0RF famotidine 20 mg tablet 20 mg PO QAM 0RF nystatin [Nystop] 100,000 unit/gram powder 1 applic topical BID PRN (Reason: Rash) 0RF ondansetron 4 mg tablet,disintegrating 4 mg PO Q6H PRN (Reason: nausea and vomiting) Qty: 14 0RF nitrofurantoin monohyd/m-cryst 100 mg capsule 100 mg PO BID 0RF pantoprazole 40 mg tablet,delayed release (DR/EC) 40 mg PO DAILY 0RF promethazine 25 mg suppository 25 mg [place] Q6H PRN (Reason: nausea and vomiting) Qty: 12 0RF Referrals: Gordo Feng DO [Primary Care Provider] - Coding Level of Care Code ED [employer] Workers Supervisor for Chg Fwd Exam Comprehensive
[2021-12-27 01:15] LABS: Alanine Aminotransferase 33 U/L (0-33); Alkaline Phosphatase 125 IU/L (35-105); Anion Gap 17.3 (5-19); Aspartate Amino Transferase 25 U/L (0-32); Blood Urea Nitrogen 21 mg/dL (6-20); Calcium 8.9 mg/dL (8.5-10.5); Carbon Dioxide 20 mmol/L (22-29); Chloride 104 mmol/L (98-107); Globulin 2.5 g/dL (1.3-4.6); Glomerular Filtration Rate 65.2 mL/min (90-130); Glucose 122 mg/dL (65-115); Lipase 20 U/L (13-60); Osmolality Calculated 288 mOsm/kg (285-295); Potassium 4.3 mmol/L (3.5-5.1); Sodium 137 mmol/L (136-145); Total Bilirubin 0.2 mg/dL (0.15-1.2); Total Protein 6.5 g/dL (6.6-8.7)
[2021-12-27 01:43] VITALS: RESP 16
[2021-12-27] MEDS: morphine 4 mg/mL SDV 1 mL IVP (01:43)
[2021-12-27 01:46] VITALS: BP 95/66; PULSE 93; RESP 14; O2SAT 93
== END 2021-12-27 01:48 | disposition home or self-care (01) ==
PROVIDERS: Emergency Provider Nurse Practitioner Family; PCP Electrodiagnostic Medicine
DX: K58.1 Irritable bowel syndrome with constipation (principal); R10.9 Unspecified abdominal pain
CPT/HCPCS: 74018; 80053; 83690; 85025; 96361; 96374; 96375; 99284; J2270; J2405; J3490; J7040

== ENCOUNTER 2022-01-04 18:52 | Emergency (ER) | payer MEDICARE, MEDICAID, SELFPAY ==
[2022-01-04 19:50] VITALS: BP 108/68; PULSE 96; RESP 18; TEMP 37.1; O2SAT 96; BMI 32.8
[2022-01-04 21:25] LABS: SARS Covid-2 Antigen Negative (Negative)
[2022-01-04 21:48] LABS: Influenza A by IFA Negative (Negative); Influenza B by IFA Negative (Negative)
--- NOTE | 2022-01-05 00:31 | ED_ITS ---
HPI - Abdominal Pain General: Chief Complaint: Abdominal Pain Stated Complaint: COVID SYMPTOMS, NVD Time Seen by Provider: 01/05/22 00:30 History of Present Illness: Ms. Wilhelm is a 56-year-old lady with complex past medical history who presents to the emergency department due to abdominal pain. Onset of symptoms was approximately 2 days ago at 9 AM without known specific provoking factor. She endorses constant symptoms since that time including loose stools which are nonbloody, approximately 10 episodes per day of emesis which is also nonbloody though dark green in nature, and a tearing generalized abdominal pain. She has had poor p.o. intake since onset. Intensity symptoms is moderate to severe. Course has persisted. No other specific changes in health, exacerbating, or alleviating factors identified. Onset (ago): day(s) Pain Consistency: constant Location: Diffuse Severity: moderate Quality: other Exacerbating factors: movement Relieving factors: nothing Associated Symptoms: Reports diarrhea, nausea and vomiting Related Data: Date of Last Menstrual Period: 06/19/95 Review of Systems General: Reports: 10 or more systems reviewed and unremarkable except in HPI and below GI: Reports: nausea, vomiting and diarrhea PFSH ED PFSH: Medical History Bladder stone Borderline personality disorder Chronic anxiety Chronic back pain greater than 3 months duration Chronic gastritis without bleeding COPD (chronic obstructive pulmonary disease) Cystitis cystica Dysphagia Esophageal stricture Foreign body in bladder GERD without esophagitis Neurogenic bladder Psychiatric care Restrictive lung disease Schizoaffective disorder, bipolar type Tardive dyskinesia Urgency incontinence Surgical History H/O bladder repair surgery MESH REPAIR H/O colonoscopy with polypectomy H/O esophagogastroduodenoscopy (09/21/20) H/O: hysterectomy History of appendectomy History of breast biopsy History of foot surgery sx in 2009. Screws placed by Dr. Don. History of ureter stent Hx of cholecystectomy S/P bronchoscopy with biopsy Family History Mother No problems noted. Father No problems noted. Other Asthma Cancer Diabetes Heart disease Social History Smoking and tobacco status: current every day smoker (0.5 ppd, started at age 27) cigarettes Packs smoked per day: 1 Years cigarettes smoked: 20 [ Other cigarette details: Hx of 1 PPD x 20 Years, started at age 27] Quit status (tobacco): considering quitting Second hand smoke exposure: Yes Smoking risk assessment/counseling performed?: No Alcohol intake: never Counseling given: No Counseling given: No Lives independently: Yes Household members: spouse Marital status: Number of children: 3 Current occupational status: disabled History of recent travel: No Current gender identity: Female Female Reproductive History: Date of last menstrual period: 06/19/95 Physical Exam Const: COMMON NORMALS: alert GENERAL APPEARANCE: cooperative and well developed HENMT: COMMON NORMALS: normocephalic and atraumatic HEAD & SCALP: normocephalic and atraumatic Eye: COMMON NORMALS: conjunctivae normal CONJUNCTIVA: Yes conjunctivae normal SCLERA: sclerae normal Neck/C-Spine: COMMON NORMALS: supple GENERAL: Yes trachea midline Resp: COMMON NORMALS: normal respiratory effort and clear to auscultation bilaterally EFFORT & INSPECTION: Yes able to speak in complete sentences A USCULTATION: clear to auscultation bilaterally Cardio: COMMON NORMALS: regular rate and regular rhythm RATE: regular rate RHYTHM: regular rhythm GI: COMMON NORMALS: Soft to palpation PALPATION: Yes Soft to palpation, Yes Tenderness to palpation present (GI), Yes Guarding due to palpation present (G I), No Rigid due to palpation and No Rebound tenderness present PERCUSSION: normal to percussion Extremity: GENERAL: Yes normal exam except as noted and No edema Neuro: COMMON NORMALS: moves all extremities SENSORIUM/ORIENTATION: Yes alert and No Orientation impaired Psych: COMMON NORMALS: mental status grossly normal and Normal thought process present THOUGHT PROCESS: Normal thought process present Course ED course: - Patient was seen and evaluated by me at bedside - Patient placed on cardiac monitors, IV access obtained - Initial evaluation notable for exam as above - Labs and xrays personally interpreted by me - Fluids, analgesia, and antiemetic given - Labs notable for mild leukocytosis, normal hemoglobin. Metabolic end with some evidence of dehydration. Negative UA - Imaging notable for no acute pathology to explain patient's abdominal pain and CT imaging - Upon serial reexamination after treatment the patient was improved with repeat treatment - Based on patient history, evaluation, and testing as interpreted the most likely cause of the patient's condition is unspecified abdominal pain and associated symptoms which are chronic and the patient - The results of ED evaluation were discussed with the patient including prescriptions and/or symptomatic cares (if applicable) including appropriate and responsible use, followup plan, and return precautions. The patient verbalized understanding and felt safe for discharge. - Patient discharged in satisfactory condition. Note: Click bubbles or prepopulated cortes in note writing are used for assistance with data collection and billing and are inherently more limited than narrative and other text portions of this note. Please use narrative for additional clinical history and defer to narrative/free test for any case of contradictory information. If information appears in only free text or click bubble it should be considered present or absent as reported. Please contact note commercial loan underwriter f or clarifications of clinical information or contradictory information. MDM is a brief summary, contradictory or erroneous seeming information should be clarified and full note should be reviewed. Vital Signs: Vital signs: Vital Signs Temperature 98.7 F 01/04/22 19:50 Pulse Rate 85 01/05/22 03:10 Respiratory Rate 16 01/05/22 03:10 Blood Pressure 125/76 01/05/22 03:10 Pulse Oximetry 95 01/05/22 03:10 Oxygen Delivery Me thod 01/04/22 19:50 MDM - Abdominal Pain Medical Decision Making 56-year-old lady with complex past medical history presenting to the ED for abdominal pain with nausea and vomiting. Patient has similar history. Labs with mild dehydration. CT without obvious cause. Patient improved after treatment and able to tolerate p.o. intake. Satisfactory for outpatient management. Medical Records I reviewed the patient's medical records. Lab Data I reviewed the patient's lab results. : 01/05/22 00:45 01/05/22 00:45 Labs/Radiology: Radiology Impressions Abdomen/Pelvis CT 01/05/22 00:53 IMPRESSION: 1. No acute abnormality seen on the non-contrast abdominal and pelvic CT. 2. Unchanged right kidney lower pole 2 x 3 mm calculus. No hydronephrosis, ureterectasis or ureteral calculi. 3. Unchanged serpentine sclerotic changes of the right superior femoral head subchondral region, suggestive of avascular necrosis. Mild right hip degenerative changes. Laboratory Results WBC 10.8 10^3/uL (4.0-10.0) H 01/05/22 00:45 RBC 4.37 10^6/uL (4.1-5.3) 01/05/22 00:45 Hgb 13.7 g/dL (11.5-15.3) 01/05/22 00:45 Hct 39.3 % (37.0-47.0) 01/05/22 00:45 MCV 89.9 fl (81-99) 01/05/22 00:45 MCH 31.4 pg (28.0-34.0) 01/05/22 00:45 MCHC 34.9 g/dL (30.0-36.0) 01/05/22 00:45 RDW 14.7 % (12.1-15.1) 01/05/22 00:45 Plt Count 239 10^3/cmm (130-400) 01/05/22 00:45 MPV 10.9 fL (7.4-10.4) H 01/05/22 00:45 Neut % (Auto) 60.2 % 01/05/22 00:45 Lymph % (Auto) 27.8 % 01/05/22 00:45 Placer % (Auto) 8.4 % 01/05/22 00:45 Eos % (Auto) 0.8 % 01/05/22 00:45 Baso % (Auto) 0.4 % 01/05/22 00:45 Neut # (Auto) 6.50 10^3/uL (1.8-7.7) 01/05/22 00:45 Lymph # (Auto) 3.0 10^3/uL (0.8-4.8) 01/05/22 00:45 Placer # (Auto) 0.9 10^3/uL (0.2-0.9) 01/05/22 00:45 Eos # (Auto) 0.1 10^3/uL (0.0-0.8) 01/05/22 00:45 Baso # (Auto) 0.0 10^3/uL (0.0-0.1) 01/05/22 00:45 Nucleated RBC % (auto) 0 % 01/05/22 00:45 Nucleated RBCs # 0.0 /100WBC 01/05/22 00:45 Sodium 132 mmol/L (136-145) L 01/05/22 00:45 Potassium 4.7 mmol/L (3.5-5.1) 01/05/22 00:45 Chloride 103 mmol/L (98-107) 01/05/22 00:45 Carbon Dioxide 17 mmol/L (22-29) L 01/05/22 00:45 Anion Gap 16.7 (5-19) 01/05/22 00:45 BUN 23 mg/dL (6-20) H 01/05/22 00:45 Creatinine 0.9 mg/dL (0.5-0.9) 01/05/22 00:45 GFR Calculation 65.2 mL/min (90-130) L 01/05/22 00:45 Glucose 94 mg/dL (65-115) 01/05/22 00:45 Calculated Osmolality 277 mOsm/kg (285-295) L 01/05/22 00:45 Calcium 8.5 mg/dL (8.5-10.5) 01/05/22 00:45 Lipase 24 U/L (13-60) 01/05/22 00:45 Urine Color Colorless (Yellow) 01/05/22 00:47 Urine Appearance Clear (CLEAR) 01/05/22 00:47 Urine pH 5 (5-7) 01/05/22 00:47 Ur Specific [place] 1.015 (1.005-1.030) 01/05/22 00:47 Urine Protein Neg (Negative) 01/05/22 00:47 Urine Glucose (UA) Norm (Normal) 01/05/22 00:47 Urine Ketones Negative (Negative) 01/05/22 00:47 Urine Blood Neg (Negative) 01/05/22 00:47 Urine Nitrate Negative (Negative) 01/05/22 00:47 Urine Bilirubin Neg (Negative) 01/05/22 00:47 Urine Urobilinogen Norm mg/dL (Negative) 01/05/22 00:47 Ur Leukocyte Esterase Negative (Negative) 01/05/22 00:47 Influenza Type A Ag Negative (Negative) 01/04/22 20:00 Influenza Type B Ag Negative (Negative) 01/04/22 20:00 SARS-CoV-2 Ag (Rapid) Negative (Negative) 01/04/22 20:00 Discharge Plan Discharge Patient Disposition: Home Clinical Impression: Abdominal pain, Dehydration, Nausea, vomiting and diarrhea Condition: Stable Prescriptions: New ondansetron 4 mg tablet,disintegrating 4 mg PO Q8H PRN (Reason: nausea and vomiting) Qty: 15 0RF No Action citalopram 20 mg tablet 40 mg PO BEDTIME Qty: 60 1RF lamotrigine 200 mg tablet 200 mg PO QAM Qty: 30 1RF hydroxyzine pamoate 50 mg capsule See Rx Instructions .ROUTE .COMPLEX 30 Days Qty: 150 1RF Rx Instructions: 50mg tid at 0800,1300,1700, and 100 mg at 2100 fluticasone propionate 50 mcg/actuation spray,suspension 1 spray intranasal BID PRN (Reason: Allergy Symptoms) Qty: 16 1RF Trelegy Ellipta 200-62.5-25 mcg blister with device See Rx Instructions .ROUTE .COMPLEX Qty: 60 0RF Dose Instruction: INHALE 1 PUFF BY MOUTH DAILY. STOP BREO AND IPRATROPIUM Rx Instructions: INHALE 1 PUFF BY MOUTH DAILY. STOP BREO AND IPRATROPIUM Ingrezza 80 mg capsule 80 mg PO QAM Qty: 30 2RF quetiapine [Seroquel] 300 mg tablet 300 mg PO .HS Qty: 30 2RF albuterol sulfate 90 mcg/actuation HFA aerosol inhaler 2 puff inhalation Q6H PRN (Reason: shortness of breath or wheezing) ipratropium-albuterol 0.5 mg-3 mg(2.5 mg base)/3 mL solution for nebulization 3 ml inhalation Q4H PRN (Reason: Shortness Of Breath Or Wheezing) Hold Instructions: Doctor's Order acetaminophen [Tylenol Ex Str Rapid Release] 500 mg Tablet 1,000 mg PO Q6H PRN (Reason: Pain) famotidine 20 mg tablet 20 mg PO QAM nystatin [Nystop] 100,000 unit/gram powder 1 applic topical BID PRN (Reason: Rash) ondansetron 4 mg tablet,disintegrating 4 mg PO Q6H PRN (Reason: nausea and vomiting) Qty: 14 0RF ondansetron 4 mg tablet,disintegrating 4 mg PO Q6H PRN (Reason: nausea and vomiting) Qty: 14 0RF pantoprazole 40 mg tablet,delayed release (DR/EC) 40 mg PO DAILY dicyclomine 10 mg capsule 10 mg PO TID Qty: 60 0RF Discharge Orders: Discharge ED (Routine); Ordered 01/05/22 Ordered By: Anshul Ames Referrals: Gordo Feng, [Primary Care Provider] - Discharge Diet: Advance as tolerated and Clear Liquid Discharge Activity: Increase activity as tolerated Patient Instructions: Abdominal Pain (ED), Opioid Safety Activity Restrictions/Additional Instructions: Thank you for visiting the emergency department. You were seen and evaluated for abdominal pain with nausea, vomiting, and diarrhea. The exact cause of your symptoms is unclear but does not appear to need hospitalization or antibiotics at this time. I will prescribe antinausea medication. Please stick to a clear liquid diet for at least 1 to 2 days and then advance as tolerated. You were noted to be dehydrated, please ensure that you are staying hydrated. Please follow-up with your primary care provider. Please return to the emergency department for uncontrolled symptoms or anything else that you are concerned about and feel needs emergency department evaluation. Coding Level of Care Code ED Clerk Specialist for Shellie Fwfrank Exam Comprehensive
[2022-01-05 00:38] VITALS: BP 132/57; PULSE 71; RESP 18; O2SAT 96
[2022-01-05 00:52] LABS: Basophils % 0.4 %; Eosinophils # 0.1 10^3/uL (0.0-0.8); Eosinophils % 0.8 %; Hematocrit 39.3 % (37.0-47.0); Hemoglobin 13.7 g/dL (11.5-15.3); Lymphocytes % 27.8 %; Mean Corpuscular HGB Conc 34.9 g/dL (30.0-36.0); Mean Corpuscular Hemoglobin 31.4 pg (28.0-34.0); Mean Corpuscular Volume 89.9 fl (81-99); Mean Platelet Volume 10.9 fL (7.4-10.4); Monocytes # 0.9 10^3/uL (0.2-0.9); Monocytes % 8.4 %; Neutrophils % 60.2 %; Nucleated Red Blood Cells % 0 %; Platelet Count 239 10^3/cmm (130-400); Red Blood Count 4.37 10^6/uL (4.1-5.3); Red Cell Distribution Width 14.7 % (12.1-15.1); White Blood Count 10.8 10^3/uL (4.0-10.0)
--- NOTE | 2022-01-05 00:53 | CTR_ITS ---
PROCEDURE INFORMATION: Exam: CT Abdomen And Pelvis Without Contrast Exam date and time: 01/05/2022 2:15 AM Age: 56 years old Clinical indication: Nausea and vomiting; Abdominal pain; Generalized; Prior surgery; Surgery type: Gb. Appy. Bladder mesh. Hysterectomy. Patient HX: Diffuse abd pain with nvd; Additional info: Abd pain, nvd TECHNIQUE: Imaging protocol: Computed tomography of the abdomen and pelvis without contrast. Radiation optimization: All CT scans at this facility use at least one of these dose optimization techniques: automated exposure control; mA and/or kV adjustment per patient size (includes targeted exams where dose is matched to clinical indication); or iterative reconstruction. COMPARISON: CT abdomen pelvis wo con [id number] 11/25/2021 9:02 PM RADIATION DOSE METRICS: Total DLP (mGy-cm): 1211.83 FINDINGS: Lungs: The visualized portions of the lung bases are normal. Liver: The non-contrast enhanced liver appears unremarkable. Gallbladder and bile ducts: Status post prior cholecystectomy. Unchanged prominent extrahepatic/common bile duct is seen. No calcified stones. Pancreas: Appears unremarkable on the non-contrast CT. No ductal dilation. Spleen: The non-contrast enhanced spleen appears unremarkable. Punctate calcified granuloma is seen. No splenomegaly. Adrenal glands: Unremarkable non-contrast CT appearance of the adrenals. No definte masses. Kidneys and ureters: Unchanged right kidney lower pole 2 x 3 mm calculus is seen. No hydronephrosis, ureterectasis or ureteral calculi. No masses seen on the noncontrast CT. Stomach and bowel: The non-contrast opacified stomach is not well distended, limiting assessment. No gross abnormalities seen. The noncontrast opacified small bowel loops appear unremarkable. The noncontrast opacified loops of colon in the abdomen and pelvis show moderate fecal material in the cecum. Mild gas and fecal material is seen in the transverse and descending colon. The sigmoid colon and rectum are not well distended, limiting assessment. The lack of orally administered contrast material limits assessment. Appendix: The appendix is not visualized on the CT. No pericecal region inflammatory changes to give CT evidence of acute appendicitis. Intraperitoneal space: No abdominal ascites. No free air. There are numerous benign phleboliths in the pelvis. Postsurgical changes of the left inguinal region are seen with tiny radiopaque densities. Vasculature: No abdominal aortic aneurysm. Lymph nodes: No enlarged lymph nodes. Urinary bladder: Unremarkable as visualized. Reproductive: Unremarkable as visualized. Bones/joints: Mild rightward curvature of the mid lumbar spine is seen. Severe degenerative disc disease changes with small disc osteophyte complex are seen at the L4-L5 level. Moderate to severe L4-L5 and L5-S1 degenerative facet disease changes are seen with moderate left foraminal narrowing. Unchanged serpentine sclerotic changes of the right superior femoral head subchondral region are seen, suggestive of avascular necrosis. Mild right hip degenerative changes. Soft tissues: Unremarkable. CT/CT abdomen pelvis wo con [id number] IMPRESSION: 1. No acute abnormality seen on the non-contrast abdominal and pelvic CT. 2. Unchanged right kidney lower pole 2 x 3 mm calculus. No hydronephrosis, ureterectasis or ureteral calculi. 3. Unchanged serpentine sclerotic changes of the right superior femoral head subchondral region, suggestive of avascular necrosis. Mild right hip degenerative changes.
[2022-01-05 00:55] LABS: Add Urine Microscopic? NO; Charge for UA Resulting for Rev
[2022-01-05 01:00] LABS: Specific Gravity, Urine 1.015 (1.005-1.030); Urine Appearance Clear (CLEAR); Urine Color Colorless (Yellow); pH Urine 5 (5-7)
[2022-01-05 01:04] LABS: Bilirubin Urine Neg (Negative); Blood Urine Neg (Negative); Glucose Urine UA Norm (Normal); Ketones Urine Negative (Negative); Leukocyte Esterase Urine Negative (Negative); Nitrate Urine Negative (Negative); Protein Urine Neg (Negative); Urobilinogen Urine Norm (Negative)
[2022-01-05 01:28] VITALS: RESP 18
[2022-01-05 01:28] LABS: Blood Urea Nitrogen 23 mg/dL (6-20); Calcium 8.5 mg/dL (8.5-10.5); Carbon Dioxide 17 mmol/L (22-29); Chloride 103 mmol/L (98-107); Glomerular Filtration Rate 65.2 mL/min (90-130); Glucose 94 mg/dL (65-115); Lipase 24 U/L (13-60); Osmolality Calculated 277 mOsm/kg (285-295); Sodium 132 mmol/L (136-145)
[2022-01-05] MEDS: ondansetron 2 mg/ML SDV 2 mL 4 MG IM (01:28)
[2022-01-05] MEDS: morphine 4 mg/mL SDV 1 mL IM ×2 (01:28→03:03)
[2022-01-05 01:29] LABS: Anion Gap 16.7 (5-19); Potassium 4.7 mmol/L (3.5-5.1)
[2022-01-05 01:30] LABS: Slide Review Slide Review Perform
[2022-01-05 03:03] VITALS: RESP 16
[2022-01-05] MEDS: dicyclomine 10 mg Capsule PO (03:03)
[2022-01-05 03:10] VITALS: BP 125/76; PULSE 85; RESP 16; O2SAT 95
== END 2022-01-05 03:43 | disposition home or self-care (01) ==
PROVIDERS: Emergency Provider Emergency Medicine; PCP Electrodiagnostic Medicine
DX: R10.9 Unspecified abdominal pain (principal); R11.2 Nausea with vomiting, unspecified; R19.7 Diarrhea, unspecified; E86.0 Dehydration; J44.9 Chronic obstructive pulmonary disease, unspecified; F17.210 Nicotine dependence, cigarettes, uncomplicated; Z20.822 Contact with and (suspected) exposure to COVID-19
CPT/HCPCS: 74176; 80048; 81003; 83690; 85025; 87426; 87804; 96372; 99284; J2270; J2405

== ENCOUNTER 2022-01-09 18:46 | Emergency (ER) | payer MEDICARE, MEDICAID, SELFPAY ==
--- NOTE | 2022-01-09 18:50 | ED_ITS ---
HPI - Abdominal Pain General: Chief Complaint: Nausea/Vomiting/Diarrhea Stated Complaint: N/V Time Seen by Provider: 01/09/22 18:48 Source: patient and EMS Mode of arrival: EMS Limitations: no limitations History of Present Illness: 56-year-old female who is very well-known to the ER has a history of chronic abdominal pain along with irritable bowel syndrome states she has been having cramping pain along with vomiting since Monday. States she has vomited a slight amount of blood. She denies any worsening improving factors she is in no distress here she rates her pain a 5 out of 10 no fevers no diarrhea no blood in her stool no black tarry stools. Associated Symptoms: Reports nausea and vomiting; Denies chills, dysuria and fever(s) Related Data: Date of Last Menstrual Period: 06/19/95 Review of Systems Const: Denies: fever(s), chills, body aches or change in appetite Eyes: Denies: blurry vision or eye discomfort ENMT: Denies: throat pain or dental pain Card: Denies: chest pain Resp: Denies: dyspnea GI: Reports: abdominal pain, nausea and vomiting : Denies: dysuria Musc: Denies: neck pain or back pain Skin/Breast: Denies: rash Neuro: Denies: headache(s) Psych: Denies: depression Wilbur/Lymph: Denies: easy bruising All/Imm: Denies: urticaria PFSH ED PFSH: Medical History Bladder stone Borderline personality disorder Chronic anxiety Chronic back pain greater than 3 months duration Chronic gastritis without bleeding COPD (chronic obstructive pulmonary disease) Cystitis cystica Dysphagia Esophageal stricture Foreign body in bladder GERD without esophagitis Neurogenic bladder Psychiatric care Restrictive lung disease Schizoaffective disorder, bipolar type Tardive dyskinesia Urgency incontinence Surgical History H/O bladder repair surgery MESH REPAIR H/O colonoscopy with polypectomy H/O esophagogastroduodenoscopy (09/21/20) H/O: hysterectomy History of appendectomy History of breast biopsy History of foot surgery sx in 2009. Screws placed by Dr. Don. History of ureter stent Hx of cholecystectomy S/P bronchoscopy with biopsy Family History Mother No problems noted. Father No problems noted. Other Asthma Cancer Diabetes Heart disease Social History Smoking and tobacco status: current every day smoker (0.5 ppd, started at age 27) cigarettes Packs smoked per day: 1 Years cigarettes smoked: 20 [ Other c igarette details: Hx of 1 PPD x 20 Years, started at age 27] Quit status (tobacco): considering quitting Second hand smoke exposure: Yes Smoking risk assessment/counseling performed?: No Alcohol intake: never Counseling given: No Counseling given: No Lives independently: Yes Household members: spouse Marital status: Number of children: 3 Current occupational status: disabled History of recent travel: No Current gender identity: Female Female Reproductive History: Date of last menstrual period: 06/19/95 Physical Exam Const: COMMON NORMALS: no acute distress, patient oriented x3 and healthy appearing HENMT: COMMON NORMALS: normocephalic and atraumatic HEAD & SCALP: normocephalic and atraumatic Eye: COMMON NORMALS: Equal, round and reactive pupils present and EOMs intact bilaterally PUPIL: Yes Equal, round and reactive pupils present Neck/C-Spine: COMMON NORMALS: full ROM and supple Chest: COMMONS NORMALS: normal inspection of the chest and normal palpation of entire chest wall Resp: COMMON NORMALS: normal respiratory effort, No retractions, No use of accessory muscles and clear to auscultation bilaterally AUSCULTATION: clear to auscultation bilaterally Cardio: COMMON NORMALS: regular rate, regular rhythm and No murmurs present (Cardio) RATE: regular rate RHYTHM: regular rhythm GI: COMMON NORMALS: Normal to inspection, nondistended, normoactive bowel sounds present, Soft to palpation, non-tender and no masses PALPATION: Yes Soft to palpation Extremity: COMMON NORMALS: normal to inspection and full ROM Neuro: COMMON NORMALS: patient oriented x3, moves all extremities and no focal motor deficits Psych: COMMON NORMALS: mental status grossly normal, Normal thought process present and cooperative THOUGHT PROCESS: Normal thought process present Skin: COMMON NORMALS: no rashes or lesions noted and no wounds GENERAL SKIN EXAM: no rashes or lesions noted Course Vital Signs: Vital signs: Vital Signs Temperature 97.8 F 01/09/22 19:01 Pulse Rate 85 01/09/22 19:32 Respiratory Rate 18 01/09/22 19:32 Blood Pressure 116/80 01/09/22 19:32 Pulse Oximetry 93 01/09/22 19:32 MDM - Abdominal Pain Medical Decision Making Patient presents here with abdominal pain that is chronic in nature she is well- appearing here she is not anemic her exam is benign no signs of acute abdomen she stable for discharge she is to follow-up with PCP and return if worsening she understands agrees to plan. Lab Data : 01/09/22 18:55 01/09/22 18:55 Labs/Radiology: Laboratory Results WBC 13.4 10^3/uL (4.0-10.0) H 01/09/22 18:55 RBC 4.66 10^6/uL (4.1-5.3) 01/09/22 18:55 Hgb 14.7 g/dL (11.5-15.3) 01/09/22 18:55 Hct 44.2 % (37.0-47.0) 01/09/22 18:55 MCV 94.8 fl (81-99) 01/09/22 18:55 MCH 31.5 pg (28.0-34.0) 01/09/22 18:55 MCHC 33.3 g/dL (30.0-36.0) 01/09/22 18:55 RDW 15.6 % (12.1-15.1) H 01/09/22 18:55 Plt Count 239 10^3/cmm (130-400) 01/09/22 18:55 MPV 10.5 fL (7.4-10.4) H 01/09/22 18:55 Neut % (Auto) 69.9 % 01/09/22 18:55 Lymph % (Auto) 18.7 % 01/09/22 18:55 [place] % (Auto) 8.5 % 01/09/22 18:55 Eos % (Auto) 1.9 % 01/09/22 18:55 Baso % (Auto) 0.5 % 01/09/22 18:55 Neut # (Auto) 9.38 10^3/uL (1.8-7.7) H 01/09/22 18:55 Lymph # (Auto) 2.5 10^3/uL (0.8-4.8) 01/09/22 18:55 [place] # (Auto) 1.1 10^3/uL (0.2-0.9) H 01/09/22 18:55 Eos # (Auto) 0.3 10^3/uL (0.0-0.8) 01/09/22 18:55 Baso # (Auto) 0.1 10^3/uL (0.0-0.1) 01/09/22 18:55 Nucleated RBC % (auto) 0 % 01/09/22 18:55 Nucleated RBCs # 0.0 /100WBC 01/09/22 18:55 Sodium 138 mmol/L (136-145) 01/09/22 18:55 Potassium 3.9 mmol/L (3.5-5.1) 01/09/22 18:55 Chloride 102 mmol/L (98-107) 01/09/22 18:55 Carbon Dioxide 24 mmol/L (22-29) 01/09/22 18:55 Anion Gap 15.9 (5-19) 01/09/22 18:55 BUN 25 mg/dL (6-20) H 01/09/22 18:55 Creatinine 1.0 mg/dL (0.5-0.9) H 01/09/22 18:55 GFR Calculation 57.8 mL/min (90-130) L 01/09/22 18:55 Glucose 112 mg/dL (65-115) 01/09/22 18:55 Calculated Osmolality 291 mOsm/kg (285-295) 01/09/22 18:55 Calcium 9.0 mg/dL (8.5-10.5) 01/09/22 18:55 Total Bilirubin 0.2 mg/dL (0.15-1.2) 01/09/22 18:55 AST 14 U/L (0-32) 01/09/22 18:55 ALT 11 U/L (0-33) 01/09/22 18:55 Alkaline Phosphatase 137 IU/L (35-105) H 01/09/22 18:55 Total Protein 6.5 g/dL (6.6-8.7) L 01/09/22 18:55 Albumin 4.0 g/dL (3.5-5.2) 01/09/22 18:55 Globulin 2.5 g/dL (1.3-4.6) 01/09/22 18:55 Lipase 33 U/L (13-60) 01/09/22 18:55 Discharge Plan Discharge Patient Disposition: Home Clinical Impression: Vomiting Qualifiers: Vomiting type: unspecified Nausea presence: with nausea Qualified Code(s): R11.2 - Nausea with vomiting, unspecified Condition: Stable Prescriptions: New ondansetron 4 mg tablet,disintegrating 4 mg PO Q6H PRN (Reason: nausea and vomiting) Qty: 14 0RF No Action citalopram 20 mg tablet 40 mg PO BEDTIME Qty: 60 1RF lamotrigine 200 mg tablet 200 mg PO QAM Qty: 30 1RF hydroxyzine pamoate 50 mg capsule See Rx Instructions .ROUTE .COMPLEX 30 Days Qty: 150 1RF Rx Instructions: 50mg tid at 0800,1300,1700, and 100 mg at 2100 fluticasone propionate 50 mcg/actuation spray,suspension 1 spray intranasal BID PRN (Reason: Allergy Symptoms) Qty: 16 1RF Trelegy Ellipta 200-62.5-25 mcg blister with device See Rx Instructions .ROUTE .COMPLEX Qty: 60 0RF Dose Instruction: INHALE 1 PUFF BY MOUTH DAILY. STOP BREO AND IPRATROPIUM Rx Instructions: INHALE 1 PUFF BY MOUTH DAILY. STOP BREO AND IPRATROPIUM Ingrezza 80 mg capsule 80 mg PO QAM Qty: 30 2RF quetiapine [Seroquel] 300 mg tablet 300 mg PO .HS Qty: 30 2RF albuterol sulfate 90 mcg/actuation HFA aerosol inhaler 2 puff inhalation Q6H PRN (Reason: shortness of breath or wheezing) 0RF ipratropium-albuterol 0.5 mg-3 mg(2.5 mg base)/3 mL solution for nebulization 3 ml inhalation Q4H PRN (Reason: Shortness Of Breath Or Wheezing) 0RF Hold Instructions: Doctor's Order acetaminophen [Tylenol Ex Str Rapid Release] 500 mg Tablet 1,000 mg PO Q6H PRN (Reason: Pain) 0RF famotidine 20 mg tablet 20 mg PO QAM 0RF nystatin [Nystop] 100,000 unit/gram powder 1 applic topical BID PRN (Reason: Rash) 0RF ondansetron 4 mg tablet,disintegrating 4 mg PO Q6H PRN (Reason: nausea and vomiting) Qty: 14 0RF ondansetron 4 mg tablet,disintegrating 4 mg PO Q8H PRN (Reason: nausea and vomiting) Qty: 15 0RF pantoprazole 40 mg tablet,delayed release (DR/EC) 40 mg PO DAILY 0RF Discharge Orders: Discharge ED (Routine); Ordered 01/09/22 Ordered By: Damien Urbina Referrals: Gordo Feng DO [Primary Care Provider] - Discharge Diet: Advance as tolerated Discharge Activity: Resume usual activity Patient Instructions: Acute Nausea and Vomiting (ED) Coding Level of Care Code ED Passenger Locomotive Engineer for Shellie Fwd Exam Comprehensive
[2022-01-09 19:01] VITALS: BP 104/67; PULSE 94; RESP 18; TEMP 36.6; O2SAT 97; BMI 32.1
[2022-01-09 19:02] LABS: Basophils # 0.1 10^3/uL (0.0-0.1); Basophils % 0.5 %; Eosinophils # 0.3 10^3/uL (0.0-0.8); Eosinophils % 1.9 %; Hematocrit 44.2 % (37.0-47.0); Hemoglobin 14.7 g/dL (11.5-15.3); Lymphocytes # 2.5 10^3/uL (0.8-4.8); Lymphocytes % 18.7 %; Mean Corpuscular HGB Conc 33.3 g/dL (30.0-36.0); Mean Corpuscular Hemoglobin 31.5 pg (28.0-34.0); Mean Corpuscular Volume 94.8 fl (81-99); Mean Platelet Volume 10.5 fL (7.4-10.4); Monocytes # 1.1 10^3/uL (0.2-0.9); Monocytes % 8.5 %; Neutrophils # 9.38 10^3/uL (1.8-7.7); Neutrophils % 69.9 %; Nucleated Red Blood Cells % 0 %; Platelet Count 239 10^3/cmm (130-400); Red Blood Count 4.66 10^6/uL (4.1-5.3); Red Cell Distribution Width 15.6 % (12.1-15.1); White Blood Count 13.4 10^3/uL (4.0-10.0)
[2022-01-09 19:08] VITALS: RESP 18
[2022-01-09] MEDS: morphine 4 mg/mL SDV 1 mL IVP (19:08)
[2022-01-09] MEDS: ondansetron 2 mg/ML SDV 2 mL 4 MG IVP (19:08)
[2022-01-09 19:23] LABS: Alanine Aminotransferase 11 U/L (0-33); Alkaline Phosphatase 137 IU/L (35-105); Anion Gap 15.9 (5-19); Aspartate Amino Transferase 14 U/L (0-32); Blood Urea Nitrogen 25 mg/dL (6-20); Carbon Dioxide 24 mmol/L (22-29); Chloride 102 mmol/L (98-107); Globulin 2.5 g/dL (1.3-4.6); Glomerular Filtration Rate 57.8 mL/min (90-130); Glucose 112 mg/dL (65-115); Lipase 33 U/L (13-60); Osmolality Calculated 291 mOsm/kg (285-295); Potassium 3.9 mmol/L (3.5-5.1); Sodium 138 mmol/L (136-145); Total Bilirubin 0.2 mg/dL (0.15-1.2); Total Protein 6.5 g/dL (6.6-8.7)
[2022-01-09 19:32] VITALS: BP 116/80; PULSE 85; RESP 18; O2SAT 93
== END 2022-01-09 19:42 | disposition home or self-care (01) ==
PROVIDERS: Emergency Provider Emergency Medicine; PCP Electrodiagnostic Medicine
DX: R11.2 Nausea with vomiting, unspecified (principal); J44.9 Chronic obstructive pulmonary disease, unspecified; F17.210 Nicotine dependence, cigarettes, uncomplicated
CPT/HCPCS: 80053; 83690; 85025; 96374; 96375; 99284; J2270; J2405

== ENCOUNTER 2022-01-14 09:48 | Emergency (ER) | payer MEDICARE, MEDICAID, SELFPAY ==
[2022-01-14 09:58] VITALS: BP 151/100; PULSE 82; RESP 16; TEMP 36.9; O2SAT 98; BMI 32.1
--- NOTE | 2022-01-14 10:09 | ED_ITS ---
Documented by User: Cata Wan PA-C 01/14/22 12:26 HPI - Abdominal Pain General: Chief Complaint: Abdominal Pain Stated Complaint: ABD PAIN Time Seen by Provider: 01/14/22 10:06 Source: patient Mode of arrival: EMS Limitations: no limitations History of Present Illness: 56-year-old female presents to the ER today for periumbilical abdominal pain. Patient has been seen in the ER multiple times in the last 1 month for abdominal pain. Patient had a CT done less than 1 week ago which was normal. She reports worsening pain started about midnight and she has had 6+ episodes of vomiting since that time. Patient reports a couple episodes of watery diarrhea. Patient reports the pain is severe at this time and she has been unable to keep food down. Patient denies eating anything different last night. She reports they are unable to find the cause of her pain. Related Data: Date of Last Menstrual Period: 06/19/95 Review of Systems General: Reports: 10 or more systems reviewed and unremarkable except in HPI and below PFSH ED PFSH: Medical History Bladder stone Borderline personality disorder Chronic anxiety Chronic back pain greater than 3 months duration Chronic gastritis without bleeding COPD (chronic obstructive pulmonary disease) Cystitis cystica Dysphagia Esophageal stricture Foreign body in bladder GERD without esophagitis Neurogenic bladder Psychiatric care Restrictive lung disease Schizoaffective disorder, bipolar type Tardive dyskinesia Urgency incontinence Surgical History H/O bladder repair surgery MESH REPAIR H/O colonoscopy with polypectomy H/O esophagogastroduodenoscopy (09/21/20) H/O: hysterectomy History of appendectomy History of breast biopsy History of foot surgery sx in 2009. Screws placed by Dr. Don. History of ureter stent Hx of cholecystectomy S/P bronchoscopy with biopsy Family History Mother No problems noted. Father No problems noted. Other Asthma Cancer Diabetes Heart disease Social History Smoking and tobacco status: current every day smoker (0.5 ppd, started at age 27) cigarettes Packs smoked per day: 1 Years cigarettes smoked: 20 [ Other cigarette details: Hx of 1 PPD x 20 Years, started at age 27] Quit status (tobacco): considering quitting Second hand smoke exposure: Yes Smoking risk assessment/counseling performed?: No Alcohol intake: never Counseling given: No Counseling given: No Lives independently: Yes Household members: spouse Marital status: Number of children: 3 Current occupational status: disabled History of recent travel: No Current gender identity: Female Female Reproductive History: Date of last menstrual period: 06/19/95 Physical Exam Const: COMMON NORMALS: average body habitus, patient oriented x3, no limitations, alert and well nourished HENMT: COMMON NORMALS: normocephalic, atraumatic, external ears normal, Normal external nose present and moist oral mucous membranes HEAD & SCALP: normocephalic and atraumatic NOSE: Normal external nose present EXTERNAL EAR: Yes external ears normal Neck/C-Spine: COMMON NORMALS: full ROM and no lymphadenopathy Resp: COMMON NORMALS: normal respiratory effort and No retractions EFFORT & INSPECTION: Yes able to speak in complete sentences Cardio: COMMON NORMALS: regular rate and regular rhythm RATE: regular rate RHYTHM: regular rhythm GI: COMMON NORMALS: Soft to palpation and No hepatosplenomegaly present INSPECTION: Yes normal to inspection AUSCULTATION: Yes normoactive bowel sounds PALPATION: Yes Soft to palpation, Yes Tenderness to palpation present (GI) Details: other (periumbilical), Yes Guarding due to palpation present (GI), Yes No hepatosplenomegaly present and Yes Other GI palpation findings present (Patient is abnormally tender to very light palpation periumbilically) : COMMON NORMALS: Yes no CVA tenderness BLADDER/KIDNEY EXAM: Yes no CVA tenderness Back/Pelvis: COMMON NORMALS: no CVA tenderness Extremity: COMMON NORMALS: normal to inspection and full ROM Neuro: COMMON NORMALS: patient oriented x3 SENSORIUM/ORIENTATION: Yes alert Psych: COMMON NORMALS: cooperative Skin: COMMON NORMALS: no rashes or lesions noted GENERAL SKIN EXAM: no rashes or lesions noted Course ED course: 56-year-old female presents to the ER today for continued abdominal pain. Patient reports this is been going on about a month and she has been seen multiple times in the ER for this. Patient was seen less than a week ago and had a normal CT done. Patient reports pain worsened about midnight and she has had 7 episodes of vomiting since. Patient reports a couple episodes of watery diarrhea. She denies any fever or chills. Patient denies eating anything differently last night. She is not taking thing other than Zofran and Pepto- Bismol for the nausea. Given her recently patient has had multiple imaging modalities all of which were normal, we will start with lab work at this time. Patient's exam is pain out of proportion to what I would expect. I discussed this patient with Dr. Ames who also saw patient recently and he suggested starting with lab work before any other imaging. Vital Signs: Vital signs: Vital Signs Temperature 98.2 F 01/14/22 10:21 Pulse Rate 80 01/14/22 12:01 Respiratory Rate 18 01/14/22 12:01 Blood Pressure 155/98 01/14/22 12:01 Pulse Oximetry 97 01/14/22 12:01 Oxygen Delivery Me thod 01/14/22 12:01 MDM - Abdominal Pain Medical Decision Making 56-year-old female presents to the ER today for continued abdominal pain. Torres fischer reports this is been going on about a month and she has been seen multiple times in the ER for this. Patient was seen less than a week ago and had a normal CT done. Patient reports pain worsened about midnight and she has had 7 episodes of vomiting since. Patient reports a couple episodes of watery diarrhea. She denies any fever or chills. Patient denies eating anything differently last night. She is not taking thing other than Zofran and Pepto- Bismol for the nausea. Given her recently patient has had multiple imaging modalities all of which were normal, we will start with lab work at this time. Patient's exam is pain out of proportion to what I would expect. I discussed this patient with Dr. Ames who also saw patient recently and he suggested starting with lab work before any other imaging. Patient's lab work has actually improved over the last month. Today labs are normal. When I went back in to check on patient she was doing well and does not appear in any distress. I discussed with patient that given improvement in labs and the fact that she just had a CT I did not recommend reimaging her at this time. We did discuss taking Bentyl for IBS symptoms. Patient was okay with trying this for a while. Recommend patient follow-up in 3 to 5 days with her PCP if symptoms continue. Return to the ER with new or worsening symptoms. Lab Data : 01/14/22 11:18 01/14/22 11:18 Labs/Radiology: Laboratory Results WBC 7.8 10^3/uL (4.0-10.0) 01/14/22 11:18 RBC 4.16 10^6/uL (4.1-5.3) 01/14/22 11:18 Hgb 13.3 g/dL (11.5-15.3) 01/14/22 11:18 Hct 38.1 % (37.0-47.0) 01/14/22 11:18 MCV 91.6 fl (81-99) 01/14/22 11:18 MCH 32.0 pg (28.0-34.0) 01/14/22 11:18 MCHC 34.9 g/dL (30.0-36.0) 01/14/22 11:18 RDW 15.5 % (12.1-15.1) H 01/14/22 11:18 Plt Count 187 10^3/cmm (130-400) 01/14/22 11:18 MPV 10.0 fL (7.4-10.4) 01/14/22 11:18 Neut % (Auto) 59.3 % 01/14/22 11:18 Lymph % (Auto) 27.3 % 01/14/22 11:18 [place] % (Auto) 8.7 % 01/14/22 11:18 Eos % (Auto) 3.1 % 01/14/22 11:18 Baso % (Auto) 1.2 % 01/14/22 11:18 Neut # (Auto) 4.62 10^3/uL (1.8-7.7) 01/14/22 11:18 Lymph # (Auto) 2.1 10^3/uL (0.8-4.8) 01/14/22 11:18 [place] # (Auto) 0.7 10^3/uL (0.2-0.9) 01/14/22 11:18 Eos # (Auto) 0.2 10^3/uL (0.0-0.8) 01/14/22 11:18 Baso # (Auto) 0.1 10^3/uL (0.0-0.1) 01/14/22 11:18 Nucleated RBC % (auto) 0 % 01/14/22 11:18 Nucleated RBCs # 0.0 /100WBC 01/14/22 11:18 Sodium 142 mmol/L (136-145) 01/14/22 11:18 Potassium 4.0 mmol/L (3.5-5.1) 01/14/22 11:18 Chloride 109 mmol/L (98-107) H 01/14/22 11:18 Carbon Dioxide 23 mmol/L (22-29) 01/14/22 11:18 Anion Gap 14.0 (5-19) 01/14/22 11:18 BUN 16 mg/dL (6-20) 01/14/22 11:18 Creatinine 0.8 mg/dL (0.5-0.9) 01/14/22 11:18 GFR Calculation 74.7 mL/min (90-130) L 01/14/22 11:18 Glucose 95 mg/dL (65-115) 01/14/22 11:18 Calculated Osmolality 295 mOsm/kg (285-295) 01/14/22 11:18 Calcium 8.7 mg/dL (8.5-10.5) 01/14/22 11:18 Lipase 31 U/L (13-60) 01/14/22 11:18 Urine Color Yellow (Yellow) 01/14/22 11:22 Urine Appearance Clear (CLEAR) 01/14/22 11:22 Urine pH 7 (5-7) 01/14/22 11:22 Ur Specific [place] 1.010 (1.005-1.030) 01/14/22 11:22 Urine Protein Neg (Negative) 01/14/22 11:22 Urine Glucose (UA) Norm (Normal) 01/14/22 11:22 Urine Ketones Negative (Negative) 01/14/22 11:22 Urine Blood Neg (Negative) 01/14/22 11:22 Urine Nitrate Negative (Negative) 01/14/22 11:22 Urine Bilirubin Neg (Negative) 01/14/22 11:22 Urine Urobilinogen Norm mg/dL (Negative) 01/14/22 11:22 Ur Leukocyte Esterase Negative (Negative) 01/14/22 11:22 Critical Care Time Critical Care Time: Critical Care Time: No Discharge Plan Discharge Patient Disposition: Home Clinical Impression: Abdominal pain Condition: Stable Prescriptions: New dicyclomine 10 mg capsule 10 mg PO TID Qty: 60 0RF No Action citalopram 20 mg tablet 40 mg PO BEDTIME Qty: 60 1RF lamotrigine 200 mg tablet 200 mg PO QAM Qty: 30 1RF hydroxyzine pamoate 50 mg capsule See Rx Instructions .ROUTE .COMPLEX 30 Days Qty: 150 1RF Rx Instructions: 50mg tid at 0800,1300,1700, and 100 mg at 2100 fluticasone propionate 50 mcg/actuation spray,suspension 1 spray intranasal BID PRN (Reason: Allergy Symptoms) Qty: 16 1RF Trelegy Ellipta 200-62.5-25 mcg blister with device See Rx Instructions .ROUTE .COMPLEX Qty: 60 0RF Dose Instruction: INHALE 1 PUFF BY MOUTH DAILY. STOP BREO AND IPRATROPIUM Rx Instructions: INHALE 1 PUFF BY MOUTH DAILY. STOP BREO AND IPRATROPIUM Ingrezza 80 mg capsule 80 mg PO QAM Qty: 30 2RF quetiapine [Seroquel] 300 mg tablet 300 mg PO .HS Qty: 30 2RF albuterol sulfate 90 mcg/actuation HFA aerosol inhaler 2 puff inhalation Q6H PRN (Reason: shortness of breath or wheezing) ipratropium-albuterol 0.5 mg-3 mg(2.5 mg base)/3 mL solution for nebulization 3 ml inhalation Q4H PRN (Reason: Shortness Of Breath Or Wheezing) Hold Instructions: Doctor's Order acetaminophen [Tylenol Ex Str Rapid Release] 500 mg Tablet 1,000 mg PO Q6H PRN (Reason: Pain) famotidine 20 mg tablet 20 mg PO QAM nystatin [Nystop] 100,000 unit/gram powder 1 applic topical BID PRN (Reason: Rash) ondansetron 4 mg tablet,disintegrating 4 mg PO Q6H PRN (Reason: nausea and vomiting) Qty: 14 0RF ondansetron 4 mg tablet,disintegrating 4 mg PO Q8H PRN (Reason: nausea and vomiting) Qty: 15 0RF ondansetron 4 mg tablet,disintegrating 4 mg PO Q6H PRN (Reason: nausea and vomiting) Qty: 14 0RF pantoprazole 40 mg tablet,delayed release (DR/EC) 40 mg PO DAILY Discharge Orders: Discharge ED (Routine); Ordered 01/14/22 Ordered By: Cata Wan Referrals: Gordo Feng DO [Primary Care Provider] - Discharge Diet: Usual diet Discharge Activity: Resume usual activity Patient Instructions: Abdominal Pain (ED), Opioid Safety Activity Restrictions/Additional Instructions: Take Bentyl as prescribed. Brat diet recommended. Follow-up with PCP in 3 to 5 days if no improvement. Coding Level of Care Code ED [facility] [employer] Foreign Food for Chg Fwd Exam Comprehensive Documented by User: Bryant Whitley DO 01/15/22 07:50 HPI - Abdominal Pain General: Chief Complaint: Abdominal Pain Stated Complaint: ABD PAIN Time Seen by Provider: 01/14/22 10:06 PFSH ED PFSH: Medical History Bladder stone Borderline personality disorder Chronic anxiety Chronic back pain greater than 3 months duration Chronic gastritis without bleeding COPD (chronic obstructive pulmonary disease) Cystitis cystica Dysphagia Esophageal stricture Foreign body in bladder GERD without esophagitis Neurogenic bladder Psychiatric care Restrictive lung disease Schizoaffective disorder, bipolar type Tardive dyskinesia Urgency incontinence Surgical History H/O bladder repair surgery MESH REPAIR H/O colonoscopy with polypectomy H/O esophagogastroduodenoscopy (09/21/20) H/O: hysterectomy History of appendectomy History of breast biopsy History of foot surgery sx in 2009. Screws placed by Dr. Don. History of ureter stent Hx of cholecystectomy S/P bronchoscopy with biopsy Family History Mother No problems noted. Father No problems noted. Other Asthma Cancer Diabetes Heart disease Social History Smoking and tobacco status: current every day smoker (0.5 ppd, started at age 27) cigarettes Packs smoked per day: 1 Years cigarettes smoked: 20 [ Other cigarette details: Hx of 1 PPD x 20 Years, started at age 27] Quit status (tobacco): considering quitting Second hand smoke exposure: Yes Smoking risk assessment/counseling performed?: No Alcohol intake: never Counseling given: No Counseling given: No Lives independently: Yes Household members: spouse Marital status: Number of children: 3 Current occupational status: disabled History of recent travel: No Current gender identity: Female Course Vital Signs: Vital signs: Vital Signs Temperature 98.2 F 01/14/22 10:21 Pulse Rate 80 01/14/22 12:01 Respiratory Rate 18 01/14/22 12:01 Blood Pressure 155/98 01/14/22 12:01 Pulse Oximetry 97 01/14/22 12:01 Oxygen Delivery Me thod 01/14/22 12:01 MDM - Abdominal Pain Medical Decision Making 56-year-old female presents to the ER today for continued abdominal pain. Patient reports this is been going on about a month and she has been seen mu ltiple times in the ER for this. Patient was seen less than a week ago and had a normal CT done. Patient reports pain worsened about midnight and she has had 7 episodes of vomiting since. Patient reports a couple episodes of watery diarrhea. She denies any fever or chills. Patient denies eating anything differently last night. She is not taking thing other than Zofran and Pepto- Bismol for the nausea. Given her recently patient has had multiple imaging modalities all of which were normal, we will start with lab work at this time. Patient's exam is pain out of proportion to what I would expect. I discussed this patient with Dr. Ames who also saw patient recently and he suggested start ing with lab work before any other imaging. Patient's lab work has actually improved over the last month. Today labs are normal. When I went back in to check on patient she was doing well and does not appear in any distress. I discussed with patient that given improvement in labs and the fact that she just had a CT I did not recommend reimaging her at this time. We did discuss taking Bentyl for IBS symptoms. Patient was okay with trying this for a while. Recommend patient follow-up in 3 to 5 days with her PCP if symptoms continue. Return to the ER with new or worsening symptoms. Chart reviewed and patient discussed with midlevel. Agree with assessment and plan. Lab Data : 01/14/22 11:18 01/14/22 11:18 Labs/Radiology: Laboratory Results WBC 7.8 10^3/uL (4.0-10.0) 01/14/22 11:18 RBC 4.16 10^6/uL (4.1-5.3) 01/14/22 11:18 Hgb 13.3 g/dL (11.5-15.3) 01/14/22 11:18 Hct 38.1 % (37.0-47.0) 01/14/22 11:18 MCV 91.6 fl (81-99) 01/14/22 11:18 MCH 32.0 pg (28.0-34.0) 01/14/22 11:18 MCHC 34.9 g/dL (30.0-36.0) 01/14/22 11:18 RDW 15.5 % (12.1-15.1) H 01/14/22 11:18 Plt Count 187 10^3/cmm (130-400) 01/14/22 11:18 MPV 10.0 fL (7.4-10.4) 01/14/22 11:18 Neut % (Auto) 59.3 % 01/14/22 11:18 Lymph % (Auto) 27.3 % 01/14/22 11:18 [place] % (Auto) 8.7 % 01/14/22 11:18 Eos % (Auto) 3.1 % 01/14/22 11:18 Baso % (Auto) 1.2 % 01/14/22 11:18 Neut # (Auto) 4.62 10^3/uL (1.8-7.7) 01/14/22 11:18 Lymph # (Auto) 2.1 10^3/uL (0.8-4.8) 01/14/22 11:18 [place] # (Auto) 0.7 10^3/uL (0.2-0.9) 01/14/22 11:18 Eos # (Auto) 0.2 10^3/uL (0.0-0.8) 01/14/22 11:18 Baso # (Auto) 0.1 10^3/uL (0.0-0.1) 01/14/22 11:18 Nucleated RBC % (auto) 0 % 01/14/22 11:18 Nucleated RBCs # 0.0 /100WBC 01/14/22 11:18 Sodium 142 mmol/L (136-145) 01/14/22 11:18 Potassium 4.0 mmol/L (3.5-5.1) 01/14/22 11:18 Chloride 109 mmol/L (98-107) H 01/14/22 11:18 Carbon Dioxide 23 mmol/L (22-29) 01/14/22 11:18 Anion Gap 14.0 (5-19) 01/14/22 11:18 BUN 16 mg/dL (6-20) 01/14/22 11:18 Creatinine 0.8 mg/dL (0.5-0.9) 01/14/22 11:18 GFR Calculation 74.7 mL/min (90-130) L 01/14/22 11:18 Glucose 95 mg/dL (65-115) 01/14/22 11:18 Calculated Osmolality 295 mOsm/kg (285-295) 01/14/22 11:18 Calcium 8.7 mg/dL (8.5-10.5) 01/14/22 11:18 Lipase 31 U/L (13-60) 01/14/22 11:18 Urine Color Yellow (Yellow) 01/14/22 11:22 Urine Appearance Clear (CLEAR) 01/14/22 11:22 Urine pH 7 (5-7) 01/14/22 11:22 Ur Specific [place] 1.010 (1.005-1.030) 01/14/22 11:22 Urine Protein Neg (Negative) 01/14/22 11:22 Urine Glucose (UA) Norm (Normal) 01/14/22 11:22 Urine Ketones Negative (Negative) 01/14/22 11:22 Urine Blood Neg (Negative) 01/14/22 11:22 Urine Nitrate Negative (Negative) 01/14/22 11:22 Urine Bilirubin Neg (Negative) 01/14/22 11:22 Urine Urobilinogen Norm mg/dL (Negative) 01/14/22 11:22 Ur Leukocyte Esterase Negative (Negative) 01/14/22 11:22 Discharge Plan Discharge Patient Disposition: Home Clinical Impression: Abdominal pain Condition: Stable Prescriptions: New dicyclomine 10 mg capsule 10 mg PO TID Qty: 60 0RF No Action citalopram 20 mg tablet 40 mg PO BEDTIME Qty: 60 1RF lamotrigine 200 mg tablet 200 mg PO QAM Qty: 30 1RF hydroxyzine pamoate 50 mg capsule See Rx Instructions .ROUTE .COMPLEX 30 Days Qty: 150 1RF Rx Instructions: 50mg tid at 0800,1300,1700, and 100 mg at 2100 fluticasone propionate 50 mcg/actuation spray,suspension 1 spray intranasal BID PRN (Reason: Allergy Symptoms) Qty: 16 1RF Trelegy Ellipta 200-62.5-25 mcg blister with device See Rx Instructions .ROUTE .COMPLEX Qty: 60 0RF Dose Instruction: INHALE 1 PUFF BY MOUTH DAILY. STOP BREO AND IPRATROPIUM Rx Instructions: INHALE 1 PUFF BY MOUTH DAILY. STOP BREO AND IPRATROPIUM Ingrezza 80 mg capsule 80 mg PO QAM Qty: 30 2RF quetiapine [Seroquel] 300 mg tablet 300 mg PO .HS Qty: 30 2RF albuterol sulfate 90 mcg/actuation HFA aerosol inhaler 2 puff inhalation Q6H PRN (Reason: shortness of breath or wheezing) ipratropium-albuterol 0.5 mg-3 mg(2.5 mg base)/3 mL solution for nebulization 3 ml inhalation Q4H PRN (Reason: Shortness Of Breath Or Wheezing) Hold Instructions: Doctor's Order acetaminophen [Tylenol Ex Str Rapid Release] 500 mg Tablet 1,000 mg PO Q6H PRN (Reason: Pain) famotidine 20 mg tablet 20 mg PO QAM nystatin [Nystop] 100,000 unit/gram powder 1 applic topical BID PRN (Reason: Rash) ondansetron 4 mg tablet,disintegrating 4 mg PO Q6H PRN (Reason: nausea and vomiting) Qty: 14 0RF ondansetron 4 mg tablet,disintegrating 4 mg PO Q8H PRN (Reason: nausea and vomiting) Qty: 15 0RF ondansetron 4 mg tablet,disintegrating 4 mg PO Q6H PRN (Reason: nausea and vomiting) Qty: 14 0RF pantoprazole 40 mg tablet,delayed release (DR/EC) 40 mg PO DAILY Discharge Orders: Discharge ED (Routine); Ordered 01/14/22 Ordered By: Cata Wan Referrals: Gordo Feng DO [Primary Care Provider] - Discharge Diet: Usual diet Discharge Activity: Resume usual activity Patient Instructions: Abdominal Pain (ED), Opioid Safety Activity Restrictions/Additional Instructions: Take Bentyl as prescribed. Brat diet recommended. Follow-up with PCP in 3 to 5 days if no improvement. Coding Level of Care Code ED [facility] Special[facility] Foreign Food for Chg Fwd Exam Comprehensive
[2022-01-14 10:21] VITALS: BP 151/100; PULSE 78; RESP 18; TEMP 36.8; O2SAT 96
[2022-01-14 11:27] LABS: Basophils # 0.1 10^3/uL (0.0-0.1); Basophils % 1.2 %; Eosinophils # 0.2 10^3/uL (0.0-0.8); Eosinophils % 3.1 %; Hematocrit 38.1 % (37.0-47.0); Hemoglobin 13.3 g/dL (11.5-15.3); Lymphocytes # 2.1 10^3/uL (0.8-4.8); Lymphocytes % 27.3 %; Mean Corpuscular HGB Conc 34.9 g/dL (30.0-36.0); Mean Corpuscular Volume 91.6 fl (81-99); Monocytes # 0.7 10^3/uL (0.2-0.9); Monocytes % 8.7 %; Neutrophils # 4.62 10^3/uL (1.8-7.7); Neutrophils % 59.3 %; Nucleated Red Blood Cells % 0 %; Platelet Count 187 10^3/cmm (130-400); Red Blood Count 4.16 10^6/uL (4.1-5.3); Red Cell Distribution Width 15.5 % (12.1-15.1); White Blood Count 7.8 10^3/uL (4.0-10.0)
[2022-01-14 11:39] LABS: Add Urine Microscopic? NO; Charge for UA Resulting for Rev
[2022-01-14 11:45] LABS: Bilirubin Urine Neg (Negative); Blood Urine Neg (Negative); Glucose Urine UA Norm (Normal); Ketones Urine Negative (Negative); Leukocyte Esterase Urine Negative (Negative); Nitrate Urine Negative (Negative); Protein Urine Neg (Negative); Urine Appearance Clear (CLEAR); Urine Color Yellow (Yellow); Urobilinogen Urine Norm (Negative); pH Urine 7 (5-7)
[2022-01-14 11:51] LABS: Blood Urea Nitrogen 16 mg/dL (6-20); Calcium 8.7 mg/dL (8.5-10.5); Carbon Dioxide 23 mmol/L (22-29); Chloride 109 mmol/L (98-107); Glomerular Filtration Rate 74.7 mL/min (90-130); Glucose 95 mg/dL (65-115); Lipase 31 U/L (13-60); Osmolality Calculated 295 mOsm/kg (285-295); Sodium 142 mmol/L (136-145)
[2022-01-14 12:01] VITALS: BP 155/98; PULSE 80; RESP 18; O2SAT 97
== END 2022-01-14 12:42 | disposition home or self-care (01) ==
PROVIDERS: Emergency Provider Physician Assistant; PCP Electrodiagnostic Medicine
DX: R10.9 Unspecified abdominal pain (principal); J44.9 Chronic obstructive pulmonary disease, unspecified; F17.210 Nicotine dependence, cigarettes, uncomplicated
CPT/HCPCS: 36415; 80048; 81003; 83690; 85025; 99283

== ENCOUNTER 2022-01-23 19:11 | Emergency (ER) | payer MEDICARE, MEDICAID, SELFPAY ==
[2022-01-23 19:22] VITALS: BP 134/92; PULSE 89; RESP 18; TEMP 36.6; O2SAT 94; BMI 31.4
--- NOTE | 2022-01-23 19:23 | ED_ITS ---
HPI - Abdominal Pain General: Chief Complaint: Abdominal Pain Stated Complaint: ABD PAIN Time Seen by Provider: 01/23/22 19:14 Source: patient Mode of arrival: ambulatory Limitations: no limitations History of Present Illness: 56-year-old female has a history of chronic abdominal pain she has been seen here multiple times for abdominal pain states she supposed to see a GI physician in [place] but has not been able to set up a Medicaid ride to be able to get up there states she been having pain today with some vomiting she denies any worsening proving factors denies any fevers. She rates her pain a 5 out of 10. Associated Symptoms: Reports nausea and vomiting; Denies chills, dysuria and fever(s) Related Data: Date of Last Menstrual Period: 06/19/95 Review of Systems Const: Denies: fever(s), chills, body aches or change in appetite Eyes: Denies: blurry vision or eye discomfort ENMT: Denies: throat pain or dental pain Card: Denies: chest pain Resp: Denies: dyspnea GI: Reports: abdominal pain, nausea and vomiting : Denies: dysuria Musc: Denies: neck pain or back pain Skin/Breast: Denies: rash Neuro: Denies: headache(s) Psych: Denies: depression Wilbur/Lymph: Denies: easy bruising All/Imm: Denies: urticaria PFSH ED 2 PFSH: Medical History Bladder stone Borderline personality disorder Chronic anxiety Chronic back pain greater than 3 months duration Chronic gastritis without bleeding COPD (chronic obstructive pulmonary disease) Cystitis cystica Dysphagia Esophageal stricture Foreign body in bladder GERD without esophagitis Neurogenic bladder Psychiatric care Restrictive lung disease Schizoaffective disorder, bipolar type Tardive dyskinesia Urgency incontinence Surgical History H/O bladder repair surgery MESH REPAIR H/O colonoscopy with polypectomy H/O esophagogastroduodenoscopy (09/21/20) H/O: hysterectomy History of appendectomy History of breast biopsy History of foot surgery sx in 2009. Screws placed by Dr. Don. History of ureter stent Hx of cholecystectomy S/P bronchoscopy with biopsy Family History Mother No problems noted. Father No problems noted. Other Asthma Cancer Diabetes Heart disease Social History Smoking and tobacco status: current every day smoker (0.5 ppd, started at age 27) cigarettes Packs smoked per day: 1 Years cigarettes smoked: 20 [ Other cigarette details: Hx of 1 PPD x 20 Years, started at age 27] Quit status (tobacco): considering quitting Second hand smoke exposure: Yes Smoking risk assessment/counseling performed?: No Alcohol intake: never Counseling given: No Counseling given: No Lives independently: Yes Household members: spouse Marital status: Number of children: 3 Current occupational status: disabled History of recent travel: No Current gender identity: Female Female Reproductive History: Date of last menstrual period: 06/19/95 Physical Exam Const: COMMON NORMALS: no acute distress, patient oriented x3 and healthy appearing HENMT: COMMON NORMALS: normocephalic and atraumatic HEAD & SCALP: normocephalic and atraumatic Eye: COMMON NORMALS: Equal, round and reactive pupils present and EOMs intact bilaterally PUPIL: Yes Equal, round and reactive pupils present Neck/C-Spine: COMMON NORMALS: full ROM and supple Chest: COMMONS NORMALS: normal inspection of the chest and normal palpation of entire chest wall Resp: COMMON NORMALS: normal respiratory effort, No retractions, No use of accessory muscles and clear to auscultation bilaterally AUSCULTATION: clear to auscultation bilaterally Cardio: COMMON NORMALS: regular rate, regular rhythm and No murmurs present (Cardio) RATE: regular rate RHYTHM: regular rhythm GI: COMMON NORMALS: Normal to inspection, nondistended, normoactive bowel sounds present, Soft to palpation, non-tender and no masses PALPATION: Yes Soft to palpation Extremity: COMMON NORMALS: normal to inspection and full ROM Neuro: COMMON NORMALS: patient oriented x3, moves all extremities and no focal motor deficits Psych: COMMON NORMALS: mental status grossly normal, Normal thought process present and cooperative THOUGHT PROCESS: Normal thought process present Skin: COMMON NORMALS: no rashes or lesions noted and no wounds GENERAL SKIN EXAM: no rashes or lesions noted Course Vital Signs: Vital signs: Vital Signs Temperature 97.9 F 01/23/22 19:22 Pulse Rate 89 01/23/22 19:22 Respiratory Rate 16 01/23/22 19:34 Blood Pressure 134/92 01/23/22 19:22 Pulse Oximetry 94 01/23/22 19:22 Oxygen Delivery Me thod 01/23/22 19:22 MDM - Abdominal Pain Medical Decision Making Patient presents for abdominal pain is chronic in nature patient's blood work here is normal her exam is benign she is stable for discharge she is to follow- up with PCP and return if worsening. Lab Data : 01/23/22 19:30 01/23/22 19:30 Labs/Radiology: Laboratory Results WBC 11.5 10^3/uL (4.0-10.0) H 01/23/22 19:30 RBC 4.71 10^6/uL (4.1-5.3) 01/23/22 19:30 Hgb 15.1 g/dL (11.5-15.3) 01/23/22 19:30 Hct 45.2 % (37.0-47.0) 01/23/22 19:30 MCV 96.0 fl (81-99) 01/23/22 19:30 MCH 32.1 pg (28.0-34.0) 01/23/22 19:30 MCHC 33.4 g/dL (30.0-36.0) 01/23/22 19:30 RDW 15.7 % (12.1-15.1) H 01/23/22 19:30 Plt Count 231 10^3/cmm (130-400) 01/23/22 19:30 MPV 10.4 fL (7.4-10.4) 01/23/22 19:30 Neut % (Auto) 72.2 % 01/23/22 19:30 Lymph % (Auto) 17.9 % 01/23/22 19:30 [place] % (Auto) 6.5 % 01/23/22 19:30 Eos % (Auto) 2.6 % 01/23/22 19:30 Baso % (Auto) 0.5 % 01/23/22 19:30 Neut # (Auto) 8.33 10^3/uL (1.8-7.7) H 01/23/22 19:30 Lymph # (Auto) 2.1 10^3/uL (0.8-4.8) 01/23/22 19:30 [place] # (Auto) 0.8 10^3/uL (0.2-0.9) 01/23/22 19:30 Eos # (Auto) 0.3 10^3/uL (0.0-0.8) 01/23/22 19:30 Baso # (Auto) 0.1 10^3/uL (0.0-0.1) 01/23/22 19:30 Nucleated RBC % (auto) 0 % 01/23/22 19:30 Nucleated RBCs # 0.0 /100WBC 01/23/22 19:30 Sodium 139 mmol/L (136-145) 01/23/22 19:30 Potassium 4.0 mmol/L (3.5-5.1) 01/23/22 19:30 Chloride 106 mmol/L (98-107) 01/23/22 19:30 Carbon Dioxide 23 mmol/L (22-29) 01/23/22 19:30 Anion Gap 14.0 (5-19) 01/23/22 19:30 BUN 20 mg/dL (6-20) 01/23/22 19:30 Creatinine 0.9 mg/dL (0.5-0.9) 01/23/22 19:30 GFR Calculation 65.2 mL/min (90-130) L 01/23/22 19:30 Glucose 110 mg/dL (65-115) 01/23/22 19:30 Calculated Osmolality 291 mOsm/kg (285-295) 01/23/22:30 Calcium 9.4 mg/dL (8.5-10.5) 01/23/22 19:30 Total Bilirubin 0.2 mg/dL (0.15-1.2) 01/23/22 19:30 AST 10 U/L (0-32) 01/23/22 19:30 ALT 7 U/L (0-33) 01/23/22 19:30 Alkaline Phosphatase 150 IU/L (35-105) H 01/23/22 19:30 Total Protein 6.5 g/dL (6.6-8.7) L 01/23/22 19:30 Albumin 4.0 g/dL (3.5-5.2) 01/23/22 19:30 Globulin 2.5 g/dL (1.3-4.6) 01/23/22 19:30 Lipase 29 U/L (13-60) 01/23/22 19:30 Urine Color Yellow (Yellow) 01/23/22 20:00 Urine Appearance Clear (CLEAR) 01/23/22 20:00 Urine pH 6 (5-7) 01/23/22 20:00 Ur Specific [place] 1.015 (1.005-1.030) 01/23/22 20:00 Urine Protein Neg (Negative) 01/23/22 20:00 Urine Glucose (UA) Norm (Normal) 01/23/22 20:00 Urine Ketones Negative (Negative) 01/23/22 20:00 Urine Blood Neg (Negative) 01/23/22 20:00 Urine Nitrate Negative (Negative) 01/23/22 20:00 Urine Bilirubin Neg (Negative) 01/23/22 20:00 Urine Urobilinogen Neg mg/dL (Negative) 01/23/22 20:00 Ur Leukocyte Esterase Negative (Negative) 01/23/22 20:00 Discharge Plan Discharge Patient Disposition: Home Clinical Impression: Abdominal pain Qualifiers: Abdominal location: generalized Qualified Code(s): R10.84 - Generalized abd ominal pain Condition: Stable Prescriptions: No Action citalopram 20 mg tablet 40 mg PO BEDTIME Qty: 60 1RF lamotrigine 200 mg tablet 200 mg PO QAM Qty: 30 1RF hydroxyzine pamoate 50 mg capsule See Rx Instructions .ROUTE .COMPLEX 30 Days Qty: 150 1RF Rx Instructions: 50mg tid at 0800,1300,1700, and 100 mg at 2100 fluticasone propionate 50 mcg/actuation spray,suspension 1 spray intranasal BID PRN (Reason: Allergy Symptoms) Qty: 16 1RF Trelegy Ellipta 200-62.5-25 mcg blister with device See Rx Instructions .ROUTE .COMPLEX Qty: 60 0RF Dose Instruction: INHALE 1 PUFF BY MOUTH DAILY. STOP BREO AND IPRATROPIUM Rx Instructions: INHALE 1 PUFF BY MOUTH DAILY. STOP BREO AND IPRATROPIUM Ingrezza 80 mg capsule 80 mg PO QAM Qty: 30 2RF quetiapine [Seroquel] 300 mg tablet 300 mg PO .HS Qty: 30 2RF albuterol sulfate 90 mcg/actuation HFA aerosol inhaler 2 puff inhalation Q6H PRN (Reason: shortness of breath or wheezing) ipratropium-albuterol 0.5 mg-3 mg(2.5 mg base)/3 mL solution for nebulization 3 ml inhalation Q4H PRN (Reason: Shortness Of Breath Or Wheezing) Hold Instructions: Doctor's Order acetaminophen [Tylenol Ex Str Rapid Release] 500 mg Tablet 1,000 mg PO Q6H PRN (Reason: Pain) famotidine 20 mg tablet 20 mg PO QAM nystatin [Nystop] 100,000 unit/gram powder 1 applic topical BID PRN (Reason: Rash) ondansetron 4 mg tablet,disintegrating 4 mg PO Q6H PRN (Reason: nausea and vomiting) Qty: 14 0RF ondansetron 4 mg tablet,disintegrating 4 mg PO Q8H PRN (Reason: nausea and vomiting) Qty: 15 0RF ondansetron 4 mg tablet,disintegrating 4 mg PO Q6H PRN (Reason: nausea and vomiting) Qty: 14 0RF pantoprazole 40 mg tablet,delayed release (DR/EC) 40 mg PO DAILY dicyclomine 10 mg capsule 10 mg PO TID Qty: 60 0RF Discharge Orders: Discharge ED (Routine); Ordered 01/23/22 Ordered By: Damien Urbina Referrals: Gordo Feng, DO [Primary Care Provider] - Discharge Diet: Advance as tolerated Discharge Activity: Resume usual activity Patient Instructions: Abdominal Pain (ED) Coding Level of Care Code ED Asset Protection Specialist for Chg Fwd Exam Comprehensive
[2022-01-23 19:34] VITALS: RESP 16
[2022-01-23] MEDS: morphine 4 mg/mL SDV 1 mL IVP (19:34)
[2022-01-23] MEDS: ondansetron 2 mg/ML SDV 2 mL 4 MG IVP (19:34)
[2022-01-23 19:37] LABS: Basophils # 0.1 10^3/uL (0.0-0.1); Basophils % 0.5 %; Eosinophils # 0.3 10^3/uL (0.0-0.8); Eosinophils % 2.6 %; Hematocrit 45.2 % (37.0-47.0); Hemoglobin 15.1 g/dL (11.5-15.3); Lymphocytes # 2.1 10^3/uL (0.8-4.8); Lymphocytes % 17.9 %; Mean Corpuscular HGB Conc 33.4 g/dL (30.0-36.0); Mean Corpuscular Hemoglobin 32.1 pg (28.0-34.0); Mean Platelet Volume 10.4 fL (7.4-10.4); Monocytes # 0.8 10^3/uL (0.2-0.9); Monocytes % 6.5 %; Neutrophils # 8.33 10^3/uL (1.8-7.7); Neutrophils % 72.2 %; Nucleated Red Blood Cells % 0 %; Platelet Count 231 10^3/cmm (130-400); Red Blood Count 4.71 10^6/uL (4.1-5.3); Red Cell Distribution Width 15.7 % (12.1-15.1); White Blood Count 11.5 10^3/uL (4.0-10.0)
[2022-01-23 19:58] LABS: Alanine Aminotransferase 7 U/L (0-33); Alkaline Phosphatase 150 IU/L (35-105); Aspartate Amino Transferase 10 U/L (0-32); Blood Urea Nitrogen 20 mg/dL (6-20); Calcium 9.4 mg/dL (8.5-10.5); Carbon Dioxide 23 mmol/L (22-29); Chloride 106 mmol/L (98-107); Creatinine Clr Calc Pharmacy 80.0495; Globulin 2.5 g/dL (1.3-4.6); Glomerular Filtration Rate 65.2 mL/min (90-130); Glucose 110 mg/dL (65-115); Lipase 29 U/L (13-60); Osmolality Calculated 291 mOsm/kg (285-295); Sodium 139 mmol/L (136-145); Total Bilirubin 0.2 mg/dL (0.15-1.2); Total Protein 6.5 g/dL (6.6-8.7)
[2022-01-23 20:04] LABS: Add Urine Microscopic? NO; Charge for UA Resulting for Rev
[2022-01-23 20:11] LABS: Bilirubin Urine Neg (Negative); Blood Urine Neg (Negative); Glucose Urine UA Norm (Normal); Ketones Urine Negative (Negative); Leukocyte Esterase Urine Negative (Negative); Nitrate Urine Negative (Negative); Protein Urine Neg (Negative); Specific Gravity, Urine 1.015 (1.005-1.030); Urine Appearance Clear (CLEAR); Urine Color Yellow (Yellow); Urobilinogen Urine Neg (Negative); pH Urine 6 (5-7)
[2022-01-23 20:36] VITALS: BP 100/69; PULSE 83; RESP 14; O2SAT 94
== END 2022-01-23 20:37 | disposition home or self-care (01) ==
PROVIDERS: Emergency Provider Emergency Medicine; PCP Electrodiagnostic Medicine
DX: R10.84 Generalized abdominal pain (principal); F17.210 Nicotine dependence, cigarettes, uncomplicated; J44.9 Chronic obstructive pulmonary disease, unspecified
CPT/HCPCS: 80053; 81003; 83690; 85025; 96374; 96375; 99284; J2270; J2405

== ENCOUNTER 2022-01-28 09:59 | Emergency (ER) | payer MEDICARE, MEDICAID, SELFPAY ==
[2022-01-28] VITALS (26 sets, daily range): BP systolic 118; BP diastolic 74; PULSE 60–75; RESP 12–24; O2SAT 91–96; BMI 32.4
--- NOTE | 2022-01-28 10:01 | XR_ITS ---
WS: [id number] XR chest 1V portable [id number] REASON FOR EXAM: cp FINDINGS: The chest is unchanged compared to 09/22/2021. Mild to moderate tortuosity the thoracic aorta. Heart at the upper limits of normal in size. Chronic appearing interstitial lung opacities in both lung bases. No definite acute pulmonary parench ymal or pleural abnormality. XR/XR chest 1V portable [id number] IMPRESSION: Stable chest with no acute abnormality identified.
--- NOTE | 2022-01-28 10:02 | ECG_ITS ---
[facility] Test Date: 2022-01-28 Pat Name: Latesha Wilhelm Department: Room: Gender: Female Surfacer Operator: : 1965 Requested By: Damien Urbina Order Number: [id number] Alice MD: Kenan Sidhu M.D. Measurements Intervals [place] Rate: 68 P: 53 VA: 158 QRS: 47 QRSD: 92 T: 53 QT: 409 QTc: 438 Interpretive Statements SINUS RHYTHM Compared to ECG 11/04/2021 15:25:05 No significant changes Electronically Signed On 01-28-2022 18:21:28 CDT by Kenan Sidhu M.D. [id number]
--- NOTE | 2022-01-28 10:03 | W.ED.ABDPA2 ---
HPI - Abdominal Pain General: Chief Complaint: Chest Pain Stated Complaint: SUBSTERNAL CHEST PAIN Time Seen by Provider: 01/28/22 10:00 Source: patient and EMS Mode of arrival: EMS Limitations: no limitations History of Present Illness: 56-year-old female who is very well-known to the ER states that roughly 2 to 3 hours she started having some sharp chest pains in the center of her chest. States the pain is roughly a 6 out of 10 and worse with palpation. She denies any shortness of breath denies any vomiting denies any radiation of her pain. She denies any fevers. Denies any exertional component to her pain. Associated Symptoms: Denies chills, diarrhea, dysuria, fever(s), nausea and vomiting Related Data: Date of Last Menstrual Period: 06/19/95 Review of Systems Const: Denies: fever(s), chills, body aches or change in appetite Eyes: Denies: blurry vision or eye discomfort ENMT: Denies: throat pain or dental pain Card: Reports: chest pain Resp: Denies: dyspnea GI: Denies: abdominal pain, nausea, vomiting or diarrhea : Denies: dysuria Musc: Denies: neck pain or back pain Skin/Breast: Denies: rash Neuro: Denies: headache(s) Psych: Denies: depression Wilbur/Lymph: Denies: easy bruising All/Imm: Denies: urticaria PFSH ED PFSH: Medical History Bladder stone Borderline personality disorder Chronic anxiety Chronic back pain greater than 3 months duration Chronic gastritis without bleeding COPD (chronic obstructive pulmonary disease) Cystitis cystica Dysphagia Esophageal stricture Foreign body in bladder GERD without esophagitis Neurogenic bladder Psychiatric care Restrictive lung disease Schizoaffective disorder, bipolar type Tardive dyskinesia Urgency incontinence Surgical History H/O bladder repair surgery MESH REPAIR H/O colonoscopy with polypectomy H/O esophagogastroduodenoscopy (09/21/20) H/O: hysterectomy History of appendectomy History of breast biopsy History of foot surgery sx in 2009. Screws placed by Dr. Don. History of ureter stent Hx of cholecystectomy S/P bronchoscopy with biopsy Family History Mother No problems noted. Father No problems noted. Other Asthma Cancer Diabetes Heart disease Social History Smoking and tobacco status: current every day smoker (0.5 ppd, started at age 27) cigarettes Packs smoked per day: 1 Years cigarettes smoked: 20 [ Other cigarette details: Hx of 1 PPD x 20 Years, started at age 27] Quit status (tobacco): considering quitting Second hand smoke exposure: Yes Smoking risk assessment/counseling performed?: No Alcohol intake: never Counseling given: No Counseling given: No Lives independently: Yes Household members: spouse Marital status: Number of children: 3 Current occupational status: disabled History of recent travel: No Current gender identity: Female Female Reproductive History: Date of last menstrual period: 06/19/95 Physical Exam Const: COMMON NORMALS: no acute distress, patient oriented x3 and healthy appearing HENMT: COMMON NORMALS: normocephalic and atraumatic HEAD & SCALP: normocephalic and atraumatic Eye: COMMON NORMALS: Equal, round and reactive pupils present and EOMs intact bilaterally PUPIL: Yes Equal, round and reactive pupils present Neck/C-Spine: COMMON NORMALS: full ROM and supple Chest: COMMONS NORMALS: normal inspection of the chest and normal palpation of entire chest wall Resp: COMMON NORMALS: normal respiratory effort, No retractions, No use of accessory muscles and clear to auscultation bilaterally AUSCULTATION: clear to auscultation bilaterally Cardio: COMMON NORMALS: regular rate, regular rhythm and No murmurs present (Cardio) RATE: regular rate RHYTHM: regular rhythm GI: COMMON NORMALS: Normal to inspection, nondistended, normoactive bowel sounds present, Soft to palpation, non-tender and no masses PALPATION: Yes Soft to palpation Extremity: COMMON NORMALS: normal to inspection and full ROM Neuro: COMMON NORMALS: patient oriented x3, moves all extremities and no focal motor deficits Psych: COMMON NORMALS: mental status grossly normal, Normal thought process present and cooperative THOUGHT PROCESS: Normal thought process present Skin: COMMON NORMALS: no rashes or lesions noted and no wounds GENERAL SKIN EXAM: no rashes or lesions noted Course Vital Signs: Vital signs: Vital Signs Pulse Rate 66 01/28/22 10:30 Respiratory Rate 16 01/28/22 10:30 Blood Pressure 118/74 01/28/22 10:30 Pulse Oximetry 93 01/28/22 10:30 MDM - Abdominal Pain Medical Decision Making Patient presents here with chest pains atypical in nature she is well-appearing here troponin and blood work are all normal she feels improved here she is stable for discharge she is to follow-up with PCP and return if worsening she understands agrees plan. Lab Data : 01/28/22 09:45 01/28/22 11:04 Labs/Radiology: Radiology Impressions Chest X-Ray 01/28/22 10:01 IMPRESSION: Stable chest with no acute abnormality identified. Laboratory Results WBC 6.4 10^3/uL (4.0-10.0) 01/28/22 09:45 RBC 4.58 10^6/uL (4.1-5.3) 01/28/22 09:45 Hgb 14.5 g/dL (11.5-15.3) 01/28/22 09:45 Hct 43.7 % (37.0-47.0) 01/28/22 09:45 MCV 95.4 fl (81-99) 01/28/22 09:45 MCH 31.7 pg (28.0-34.0) 01/28/22 09:45 MCHC 33.2 g/dL (30.0-36.0) 01/28/22 09:45 RDW 15.6 % (12.1-15.1) H 01/28/22 09:45 Plt Count 232 10^3/cmm (130-400) 01/28/22 09:45 MPV 10.9 fL (7.4-10.4) H 01/28/22 09:45 Neut % (Auto) 55.8 % 01/28/22 09:45 Lymph % (Auto) 30.2 % 01/28/22 09:45 [place] % (Auto) 9.7 % 01/28/22 09:45 Eos % (Auto) 2.7 % 01/28/22 09:45 Baso % (Auto) 1.1 % 01/28/22 09:45 Neut # (Auto) 3.55 10^3/uL (1.8-7.7) 01/28/22 09:45 Lymph # (Auto) 1.9 10^3/uL (0.8-4.8) 01/28/22 09:45 [place] # (Auto) 0.6 10^3/uL (0.2-0.9) 01/28/22 09:45 Eos # (Auto) 0.2 10^3/uL (0.0-0.8) 01/28/22 09:45 Baso # (Auto) 0.1 10^3/uL (0.0-0.1) 01/28/22 09:45 Nucleated RBC % (auto) 0 % 01/28/22 09:45 Nucleated RBCs # 0.0 /100WBC 01/28/22 09:45 Sodium 138 mmol/L (136-145) 01/28/22 11:04 Potassium 4.1 mmol/L (3.5-5.1) 01/28/22 11:04 Chloride 106 mmol/L (98-107) 01/28/22 11:04 Carbon Dioxide 21 mmol/L (22-29) L 01/28/22 11:04 Anion Gap 15.1 (5-19) 01/28/22 11:04 BUN 14 mg/dL (6-20) 01/28/22 11:04 Creatinine 0.9 mg/dL (0.5-0.9) 01/28/22 11:04 GFR Calculation 65.2 mL/min (90-130) L 01/28/22 11:04 Glucose 82 mg/dL (65-115) 01/28/22 11:04 Calculated Osmolality 286 mOsm/kg (285-295) 01/28/22 11:04 Calcium 8.7 mg/dL (8.5-10.5) 01/28/22 11:04 Total Bilirubin 0.3 mg/dL (0.15-1.2) 01/28/22 11:04 AST 10 U/L (0-32) 01/28/22 11:04 ALT 8 U/L (0-33) 01/28/22 11:04 Alkaline Phosphatase 136 IU/L (35-105) H 01/28/22 11:04 Troponin T Baseline 6 ng/L (0-10) 01/28/22 11:04 Total Protein 6.1 g/dL (6.6-8.7) L 01/28/22 11:04 Albumin 3.9 g/dL (3.5-5.2) 01/28/22 11:04 Globulin 2.2 g/dL (1.3-4.6) 01/28/22 11:04 EKG Data EKG 1: I personally reviewed and interpreted this EKG as follows: EKG interpretation date: 01/28/22 EKG interpretation time: 10:08 Interpretation: nsr hr [address] or t wave abnormalities qrs 92 qtc 427 Discharge Plan Discharge Patient Disposition: Home Clinical Impression: Chest pain Condition: Stable Prescriptions: No Action fluticasone propionate 50 mcg/actuation spray,suspension 1 spray intranasal BID PRN (Reason: Allergy Symptoms) Qty: 16 1RF albuterol sulfate 90 mcg/actuation HFA aerosol inhaler 2 puff inhalation Q6H PRN (Reason: shortness of breath or wheezing) acetaminophen [Tylenol Ex Str Rapid Release] 500 mg Tablet 1,000 mg PO Q6H PRN (Reason: Pain) famotidine 20 mg tablet 20 mg PO DAILY@06 ondansetron 4 mg tablet,disintegrating 4 mg PO Q8H PRN (Reason: nausea and vomiting) Qty: 15 0RF citalopram 20 mg tablet 40 mg PO BEDTIME@21 clonidine HCl 0.1 mg tablet 0.1 mg PO BID PRN (Reason: blood pressure/withdrawal) baclofen 10 mg tablet 10 mg PO TID PRN (Reason: Muscle Spasm) buprenorphine-naloxone 2-0.5 mg Tablet, Sublingual 0.5 tab SUBLINGUAL DAILY@06 lamotrigine 200 mg tablet 200 mg PO DAILY@06 Seroquel 300 mg tablet 300 mg PO BEDTIME Ingrezza 80 mg capsule 80 mg PO DAILY@06 Trelegy Ellipta 200-62.5-25 mcg blister with device 1 ea inhalation DAILY@06 Rx Instructions: STOP BREO AND IPRATROPIUM pantoprazole 40 mg tablet,delayed release (DR/EC) 40 mg PO DAILY@06 dicyclomine 10 mg capsule 10 mg PO TID Qty: 60 0RF Discharge Orders: Discharge ED (Routine); Ordered 01/28/22 Ordered By: Damien Urbina Referrals: Gordo Feng DO [Primary Care Provider] - 1-3 days Discharge Diet: Advance as tolerated Discharge Activity: Resume usual activity Patient Instructions: Chest Pain (ED) Coding Level of Care Code ED Chief Librarian Work With Blind for Chg Fwd Exam Comprehensive
[2022-01-28] MEDS: ondansetron 2 mg/ML SDV 2 mL 4 MG IVP (10:17)
[2022-01-28] MEDS: morphine 4 mg/mL SDV 1 mL IVP (10:17)
[2022-01-28 10:25] LABS: Basophils # 0.1 10^3/uL (0.0-0.1); Basophils % 1.1 %; Eosinophils # 0.2 10^3/uL (0.0-0.8); Eosinophils % 2.7 %; Hematocrit 43.7 % (37.0-47.0); Hemoglobin 14.5 g/dL (11.5-15.3); Lymphocytes # 1.9 10^3/uL (0.8-4.8); Lymphocytes % 30.2 %; Mean Corpuscular HGB Conc 33.2 g/dL (30.0-36.0); Mean Corpuscular Hemoglobin 31.7 pg (28.0-34.0); Mean Corpuscular Volume 95.4 fl (81-99); Mean Platelet Volume 10.9 fL (7.4-10.4); Monocytes # 0.6 10^3/uL (0.2-0.9); Monocytes % 9.7 %; Neutrophils # 3.55 10^3/uL (1.8-7.7); Neutrophils % 55.8 %; Nucleated Red Blood Cells % 0 %; Platelet Count 232 10^3/cmm (130-400); Red Blood Count 4.58 10^6/uL (4.1-5.3); Red Cell Distribution Width 15.6 % (12.1-15.1); White Blood Count 6.4 10^3/uL (4.0-10.0)
[2022-01-28 11:37] LABS: Alanine Aminotransferase 8 U/L (0-33); Albumin Level 3.9 g/dL (3.5-5.2); Alkaline Phosphatase 136 IU/L (35-105); Anion Gap 15.1 (5-19); Aspartate Amino Transferase 10 U/L (0-32); Blood Urea Nitrogen 14 mg/dL (6-20); Calcium 8.7 mg/dL (8.5-10.5); Carbon Dioxide 21 mmol/L (22-29); Chloride 106 mmol/L (98-107); Globulin 2.2 g/dL (1.3-4.6); Glomerular Filtration Rate 65.2 mL/min (90-130); Glucose 82 mg/dL (65-115); Osmolality Calculated 286 mOsm/kg (285-295); Potassium 4.1 mmol/L (3.5-5.1); Sodium 138 mmol/L (136-145); Total Bilirubin 0.3 mg/dL (0.15-1.2); Total Protein 6.1 g/dL (6.6-8.7)
[2022-01-28 11:39] LABS: Troponin(5th) Baseline 6 ng/L (0-10)
== END 2022-01-28 12:30 | disposition home or self-care (01) ==
PROVIDERS: Emergency Provider Emergency Medicine; PCP Electrodiagnostic Medicine
DX: R07.9 Chest pain, unspecified (principal); F17.210 Nicotine dependence, cigarettes, uncomplicated; J44.9 Chronic obstructive pulmonary disease, unspecified
CPT/HCPCS: 36415; 71045; 80053; 84484; 85025; 93005; 96374; 96375; 99285; J2270; J2405

== ENCOUNTER 2022-02-01 11:34 | Inpatient (IN) | payer MEDICARE, MEDICAID, SELFPAY ==
[2022-02-01] VITALS (78 sets, daily range): BP systolic 85–132; BP diastolic 44–77; PULSE 51–100; RESP 16–24; TEMP 36.5–36.8; O2SAT 84–99; BMI 32.4; BMI 34.2
--- NOTE | 2022-02-01 11:39 | XR_ITS ---
WS: [id number] Exam: XR chest 1V portable [id number] Date/Time of Exam: 02/01/2022 11:45 AM Reason For Exam: dyspnea/cough Comparison 01/28/2022. Diffuse interstitial infiltrates throughout both lungs suggesting either interstitial pneumonia or pu lmonary edema. Mild cardiac enlargement. No pleural effusions or pneumothorax. The mediastinum is unr emarkable for technique. Bony structures are intact. Monitoring leads superimpose the chest. XR/XR chest 1V portable [id number] IMPRESSION: 1. Diffuse interstitial infiltrates throughout both lungs suggesting either pul monary edema or interstitial pneumonia. Mild cardiac enlargement.
--- NOTE | 2022-02-01 11:39 | ECG_ITS ---
[facility] Test Date: 2022-02-01 Pat Name: Latesha Wilhelm Department: Room: Gender: Female Emergency Management Coordinator: : 1965 Requested By: [place] Order Number: [id number] Alice MD: Freida Sampson M.D. Measurements Intervals [place] Rate: 90 P: 60 PA: 148 QRS: 40 QRSD: 97 T: 17 QT: 372 QTc: 457 Interpretive Statements SINUS RHYTHM Compared to ECG 01/28/2022 10:08:57 No significant changes Electronically Signed On 02-01-2022 17:55:46 CDT by Freida Sampson M.D. [email or web address]
[2022-02-01 11:43] LABS: ABG PCO2 37.7 mmHg (35-45); ABG PH Result 7.36 (7.35-7.45); Arterial Blood Gas Hematocrit 39.5 % (37-47); Base Excess ABG -3.5 mmol/L (-2.0-2.0); Blood Gas Sample Type Arterial; Carboxyhemoglobin 2.4 %THgb (0.4-20.1); HCO3 ABG 21.5 mmol/L (22-26); HGB O2 Sat 82.1 % (95-100); Ionized Calcium Level - ABG 1.2 mmol/L (1.1-1.4); Methemoglobin 0.6 % (0.4-1.5); Oxygen Saturation ABG 84.6; PO2 ABG 49.6 mmHg (80.0-100.0); Potassium Level - ABG 3.6 mmol/L (3.5-5.0); Total Hemoglobin 12.9 g/dL (12-16)
[2022-02-01 11:44] LABS: Alveolar-Arterial Oxygen Gradi 80.2 mmHg (5-10); Blood Gas Operator Identificat ED; Blood Gas Sample Site Brachial, left; Oxygen Device NRB
[2022-02-01 11:53] LABS: Basophils # 0.1 10^3/uL (0.0-0.1); Basophils % 0.2 %; Hematocrit 39.2 % (37.0-47.0); Hemoglobin 13.1 g/dL (11.5-15.3); Lymphocytes # 0.7 10^3/uL (0.8-4.8); Lymphocytes % 3.2 %; Mean Corpuscular HGB Conc 33.4 g/dL (30.0-36.0); Mean Corpuscular Volume 95.8 fl (81-99); Mean Platelet Volume 10.7 fL (7.4-10.4); Monocytes # 1.4 10^3/uL (0.2-0.9); Monocytes % 6.2 %; Neutrophils # 19.93 10^3/uL (1.8-7.7); Neutrophils % 89.4 %; Nucleated Red Blood Cells % 0 %; Platelet Count 186 10^3/cmm (130-400); Red Blood Count 4.09 10^6/uL (4.1-5.3); White Blood Count 22.3 10^3/uL (4.0-10.0)
--- NOTE | 2022-02-01 11:57 | CTR_ITS ---
PROCEDURE INFORMATION: Exam: CTA Chest With Contrast Exam date and time: 02/01/2022 2:11 PM Age: 56 years old Clinical indication: Nausea; Shortness of breath; Prior surgery; Surgery type: Gb. Appy. Bladder mesh. Hystero; Additional info: Dyspnea, hypoxia TECHNIQUE: Imaging protocol: Computed tomographic angiography of the chest with contrast. 3D rendering (Not supervised by radiologist): MIP and/or 3D reconstructed images were created by the technologist. Radiation optimization: All CT scans at this facility use at least one of these dose optimization techniques: automated exposure control; mA and/or kV adjustment per patient size (includes targeted exams where dose is matched to clinical indication); or iterative reconstruction. Contrast material: OMNI 350; Contrast volume: 95 ml; Contrast route: INTRAVENOUS (IV); COMPARISON: CT angio chest PE protcl [id number] 02/11/2021 3:39 AM RADIATION DOSE METRICS: Total DLP (mGy-cm): 1381.8 FINDINGS: Pulmonary arteries: No pulmonary embolus or aortic dissection. Aorta: See Pulmonary arteries finding. Lungs: Interval appearance of severe bilateral central airspace disease with some sparing peripherally most consistent with severe bilateral pneumonia versus atypical pulmonary edema. Pleural spaces: Unremarkable. No pneumothorax. No pleural effusion. Heart: Unremarkable. No cardiomegaly. No pericardial effusion. Lymph nodes: Calcified left hilar nodes and/or mediastinal nodes and/or lung granulomas consistent with old granulomatous disease. Slight increased size of baax-fo-qzvoxwvk mediastinal and bilateral hilar adenopathy which may be reactive versus neoplastic. Sarcoidosis is not ruled out. Bones/joints: Unremarkable. No acute fracture. Soft tissues: Unremarkable. PROCEDURE INFORMATION: Exam: CT Abdomen And Pelvis With Contrast Exam date and time: 02/01/2022 2:11 PM Age: 56 years old Clinical indication: Nausea; Shortness of breath; Prior surgery; Surgery type: Gb. Appy. Bladder mesh. Hystero; Additional info: Dyspnea, hypoxia TECHNIQUE: Imaging protocol: Computed tomography of the abdomen and pelvis with contrast. Radiation optimization: All CT scans at this facility use at least one of these dose optimization techniques: automated exposure control; mA and/or kV adjustment per patient size (includes targeted exams where dose is matched to clinical indication); or iterative reconstruction. Contrast material: OMNI 350; Contrast volume: 95 ml; Contrast route: INTRAVENOUS (IV); COMPARISON: CT abdomen pelvis wo con [id number] 01/05/2022 2:15 AM RADIATION DOSE METRICS: Total DLP (mGy-cm): 1381.8 FINDINGS: Liver: Normal. No mass. Gallbladder and bile ducts: Stable cholecystectomy. Pancreas: Normal. No ductal dilation. Spleen: Stable calcified splenic granulomas. Adrenal glands: Normal. No mass. Kidneys and ureters: Stable right nonobstructing renal calyceal stones. Stomach and bowel: Unremarkable. No obstruction. No mucosal thickening. Appendix: No evidence of appendicitis. Intraperitoneal space: Unremarkable. No free air. No significant fluid collection. Vasculature: Calcification of the abdominal aorta and/or iliac arteries consistent with atherosclerotic vessel disease. One or more calcified pelvic phleboliths. Lymph nodes: Slight decreased size of 1.1 cm gastrosplenic lymph node. Urinary bladder: Unremarkable as visualized. Reproductive: Stable hysterectomy. Bones/joints: Unremarkable. No acute fracture. Soft tissues: Stable left inguinal hernia repair. CT/CT angio chest w abd pel w con IMPRESSION: 1. Interval appearance of severe bilateral central airspace disease with some sparing peripherally most consistent with severe bilateral pneumonia versus atypical pulmonary edema. 2. Slight increased size of ekir-mg-ypiwysmx mediastinal and bilateral hilar adenopathy which may be reactive versus neoplastic. Sarcoidosis is not ruled out. 3. No pulmonary embolus or aortic dissection. IMPRESSION: Slight decreased size of 1.1 cm gastrosplenic lymph node.
[2022-02-01 11:58] LABS: Ketone (Acetest) Serum Negative (Negative)
[2022-02-01] MEDS: aspirin 81 mg Chew Tablet 324 MG PO (11:59)
[2022-02-01 12:15] LABS: Troponin(5th) Baseline 16 ng/L (0-10)
[2022-02-01 12:48] LABS: Lactic Sepsis W/Reflex 1.7 mmol/L (0.5-2.2)
[2022-02-01] MEDS: promethazine 25 mg/mL SDV 1 mL IM (13:39)
--- NOTE | 2022-02-01 13:46 | ECG_ITS ---
[facility] Test Date: 2022-02-01 Pat Name: Latesha Wilhelm Department: Room: Gender: Female Pheresis Nurse: : 1965 Requested By: [place] Order Number: [id number] Alice MD: Freida Sampson M.D. Measurements Intervals [place] Rate: 74 P: 50 AL: 146 QRS: 27 QRSD: 94 T: 13 QT: 405 QTc: 451 Interpretive Statements SINUS RHYTHM Compared to ECG 02/01/2022 11:51:35 No significant changes Electronically Signed On 02-01-2022 18:18:15 CDT by Freida Sampson M.D. [id number]
[2022-02-01 13:50] LABS: Alanine Aminotransferase 13 U/L (0-33); Albumin Level 3.4 g/dL (3.5-5.2); Alkaline Phosphatase 128 U/L (35-105); Anion Gap 15.6 (5-19); Aspartate Amino Transferase 22 U/L (0-32); Blood Urea Nitrogen 13 mg/dL (6-20); Calcium 8.4 mg/dL (8.5-10.5); Carbon Dioxide 22 mmol/L (22-29); Chloride 99 mmol/L (98-107); Creatine Phosphokinase 149 U/L (26-192); Globulin 2.4 g/dL (1.3-4.6); Glomerular Filtration Rate 57.8 mL/min (90-130); Glucose 153 mg/dL (65-115); Lipase 7 U/L (13-60); NT Pro B Type Natriuretic Pept 2617 pg/mL (0-125); Osmolality Calculated 279 mOsm/kg (285-295); Potassium 3.6 mmol/L (3.5-5.1); Sodium 133 mmol/L (136-145); Total Bilirubin 0.7 mg/dL (0.15-1.2); Total Protein 5.8 g/dL (6.6-8.7)
[2022-02-01 14:40] LABS: Troponin 5 2HR 17.94 ng/L (0-10); Troponin 5 2HR Delta 1.94 ABS# (0-10)
--- NOTE | 2022-02-01 15:17 | ED_ITS ---
HPI - Chest Pain General: Chief Complaint: Chest Pain Stated Complaint: CHEST PAIN/ SOB Time Seen by Provider: 02/01/22 11:37 Source: patient Mode of arrival: ambulatory Limitations: no limitations History of Present Illness: 56-year-old female presents emergency room via EMS. She is frequently here often for recurrent abdominal pain. However today she presents from [facility] and she was hypoxic. They reported having oxygen sats in the 40s and 50s and cyanotic when they first arrived with 15 L by nonrebreather she improved to 87% at per EMS. On arrival here she is in the upper 80s on 15 L and in moderate respiratory distress she will answer questions but is somewhat lethargic. She does report having subjective fever as well as a moderately productive cough. No diarrhea no vomiting. Patient was recently started on Suboxone for narcotic abuse and was being tapered. She is complainin g some mild chest pain as well. MD complaint: chest pain and other (Dyspnea) Onset (ago): hour(s) Timing of current episode: constant Onset: during rest Pain location: left chest Pain radiation: none Severity: severe (Dyspnea) Quality: heaviness Relieving factors: nothing Exacerbating factors: nothing Associated symptoms: Reports dyspnea, fever(s) and leg edema; Deny abdominal pain, diaphoresis, nausea, palpitations, sense of impending doom, syncope or vomiting Review of Systems Const: Reports: fever(s), body aches, change in appetite and malaise; Denies: chills, fatigue or diaphoresis ENMT: Denies: throat pain, ear or mastoid pain, nasal discharge or nasal congestion Card: Reports: chest pain; Denies: palpitations or syncope Resp: Reports: dyspnea GI: Denies: abdominal pain, nausea or vomiting : Denies: flank pain, difficulty voiding, dysuria, urinary frequency or urinary urgency Skin/Breast: Denies: rash or pruritus PFS ED PFSH: Medical History Bladder stone Borderline personality disorder Chronic anxiety Chronic back pain greater than 3 months duration Chronic gastritis without bleeding COPD (chronic obstructive pulmonary disease) Cystitis cystica Dysphagia Esophageal stricture Foreign body in bladder GERD without esophagitis Neurogenic bladder Psychiatric care Restrictive lung disease Schizoaffective disorder, bipolar type Tardive dyskinesia Urgency incontinence Surgical History H/O bladder repair surgery MESH REPAIR H/O colonoscopy with polypectomy H/O esophagogastroduodenoscopy (09/21/20) H/O: hysterectomy History of appendectomy History of breast biopsy History of foot surgery sx in 2009. Screws placed by Dr. Don. History of ureter stent Hx of cholecystectomy S/P bronchoscopy with biopsy Family History Mother No problems noted. Father No problems noted. Other Asthma Cancer Diabetes Heart disease Social History Smoking and tobacco status: current every day smoker (0.5 ppd, started at age 27) cigarettes Packs smoked per day: 1 Years cigarettes smoked: 20 [ Other cigarette details: Hx of 1 PPD x 20 Years, started at age 27] Quit status (tobacco): considering quitting Second hand smoke exposure: Yes Smoking risk assessment/counseling performed?: No Alcohol intake: never Counseling given: No Counseling given: No Lives independently: Yes Household members: spouse Marital status: Number of children: 3 Current occupational status: disabled History of recent travel: No Current gender identity: Female Female Reproductive History: Date of last menstrual period: 06/19/95 Physical Exam Const: COMMON NORMALS: no acute distress GENERAL APPEARANCE: cooperative and comfortable ORIENTATION/CONSCIOUSNESS: Yes awake, Yes oriented to person, Yes oriented to place and Yes oriented to time HENMT: COMMON NORMALS: normocephalic, atraumatic and hearing grossly normal bilaterally HEAD & SCALP: normocephalic and atraumatic Neck/C-Spine: COMMON NORMALS: no JVD Resp: EFFORT & INSPECTION: Yes labored and Yes uses accessory muscles AUSCULTATION: rhonchi and wheezes Cardio: COMMON NORMALS: no JVD, regular rhythm and No murmurs present (Cardio) RATE: tachycardic RHYTHM: regular rhythm GI: COMMON NORMALS: Soft to palpation and No hepatosplenomegaly present AU SCULTATION: Yes normoactive bowel sounds PALPATION: Yes Soft to palpation, No Guarding due to palpation present (GI) and Yes No hepatosplenomegaly present Extremity: COMMON NORMALS: normal to inspection, capillary refill normal and no calf tenderness Neuro: SENSORIUM/ORIENTATION: Yes oriented to person, Yes oriented to place and Yes oriented to time Skin: COMMON NORMALS: no rashes or lesions noted GENERAL SKIN EXAM: no rashes or lesions noted Course Vital Signs: Vital signs: Vital Signs Temperature 97.6 F 02/02/22 04:05 Pulse Rate 50 L 02/02/22 06:00 Respiratory Rate 23 H 02/02/22 04:15 Blood Pressure 119/65 02/02/22 04:15 Pulse Oximetry 95 02/02/22 05:40 Oxygen Delivery Me thod 02/02/22 04:05 Oxygen Flow Rate 15 02/01/22 11:43 Fraction of Inspir ed Oxygen 50 02/02/22 06:00 MDM - Chest Pain Medical Decision Making Patient has developed bilateral pneumonia. She has improved on the BiPAP. Patient is frequently here in the hospital and lives in a penitentiary setting and came from [facility] because of all this as well as a history of MRSA menaced cover her with healthcare acquired pneumonia antibiotics. Discussed with hospitalist orders written. Admit to ICU. Medical Records I reviewed the patient's medical records. Lab Data I reviewed the patient's lab results. : 02/02/22 03:17 02/02/22 03:17 Radiology Impressions Chest X-Ray 02/01/22 11:39 IMPRESSION: 1. Diffuse interstitial infiltrates throughout both lungs suggesting either pulmonary edema or interstitial pneumonia. Mild cardiac enlargement. Chest/Abdomen/Pelvis CT 02/01/22 11:57 IMPRESSION: 1. Interval appearance of severe bilateral central airspace disease with some sparing peripherally most consistent with severe bilateral pneumonia versus atypical pulmonary edema. 2. Slight increased size of akgm-ba-xnerdxss mediastinal and bilateral hilar adenopathy which may be reactive versus neoplastic. Sarcoidosis is not ruled out. 3. No pulmonary embolus or aortic dissection. IMPRESSION: Slight decreased size of 1.1 cm gastrosplenic lymph node. Laboratory Results WBC 22.3 10^3/uL (4.0-10.0) H 02/01/22 11:40 RBC 4.09 10^6/uL (4.1-5.3) L 02/01/22 11:40 Hgb 13.1 g/dL (11.5-15.3) 02/01/22 11:40 Hct 39.2 % (37.0-47.0) 02/01/22 11:40 MCV 95.8 fl (81-99) 02/01/22 11:40 MCH 32.0 pg (28.0-34.0) 02/01/22 11:40 MCHC 33.4 g/dL (30.0-36.0) 02/01/22 11:40 RDW 15.0 % (12.1-15.1) 02/01/22 11:40 Plt Count 186 10^3/cmm (130-400) 02/01/22 11:40 MPV 10.7 fL (7.4-10.4) H 02/01/22 11:40 Neut % (Auto) 89.4 % 02/01/22 11:40 Lymph % (Auto) 3.2 % 02/01/22 11:40 [place] % (Auto) 6.2 % 02/01/22 11:40 Eos % (Auto) 0.0 % 02/01/22 11:40 Baso % (Auto) 0.2 % 02/01/22 11:40 Neut # (Auto) 19.93 10^3/uL (1.8-7.7) H 02/01/22 11:40 Lymph # (Auto) 0.7 10^3/uL (0.8-4.8) L 02/01/22 11:40 [place] # (Auto) 1.4 10^3/uL (0.2-0.9) H 02/01/22 11:40 Eos # (Auto) 0.0 10^3/uL (0.0-0.8) 02/01/22 11:40 Baso # (Auto) 0.1 10^3/uL (0.0-0.1) 02/01/22 11:40 Nucleated RBC % (auto) 0 % 02/01/22 11:40 Nucleated RBCs # 0.0 /100WBC 02/01/22 11:40 Specimen Type Arterial 02/01/22 11:33 Sample Site Brachial, left 02/01/22 11:33 ABG pH 7.36 (7.35-7.45) 02/01/22 11:33 ABG pCO2 37.7 mmHg (35-45) 02/01/22 11:33 ABG pO2 49.6 mmHg (80.0-100.0) L 02/01/22 11:33 ABG HCO3 21.5 mmol/L (22-26) L 02/01/22 11:33 ABG O2 Saturation 84.6 02/01/22 11:33 ABG Base Excess -3.5 mmol/L (-2.0-2.0) L 02/01/22 11:33 Juan Test N/a 02/01/22 11:33 A-a O2 Gradient 80.2 mmHg (5-10) H 02/01/22 11:33 Hematocrit 39.5 % (37-47) 02/01/22 11:33 Hgb O2 Saturation 82.1 % (95-100) L 02/01/22 11:33 Carboxyhemoglobin 2.4 %THgb (0.4-20.1) 02/01/22 11:33 Methemoglobin 0.6 % (0.4-1.5) 02/01/22 11:33 Total Hemoglobin 12.9 g/dL (12-16) 02/01/22 11:33 Sodium 134.0 mmol/L (131-143) 02/01/22 11:33 Potassium 3.6 mmol/L (3.5-5.0) 02/01/22 11:33 Glucose 153.0 mg/dL (70-115) H 02/01/22 11:33 Ionized Calcium 1.2 mmol/L (1.1-1.4) 02/01/22 11:33 O2 Delivery Device Nrb 02/01/22 11:33 O2 Liters/Min 15.0 % 02/01/22 11:33 FiO2 100.0 % 02/01/22 11:33 Pollution Control Engineer ID Ed 02/01/22 11:33 Sodium 133 mmol/L (136-145) L 02/01/22 12:53 Potassium 3.6 mmol/L (3.5-5.1) 02/01/22 12:53 Chloride 99 mmol/L (98-107) 02/01/22 12:53 Carbon Dioxide 22 mmol/L (22-29) 02/01/22 12:53 Anion Gap 15.6 (5-19) 02/01/22 12:53 BUN 13 mg/dL (6-20) 02/01/22 12:53 Creatinine 1.0 mg/dL (0.5-0.9) H 02/01/22 12:53 GFR Calculation 57.8 mL/min (90-130) L 02/01/22 12:53 Glucose 153 mg/dL (65-115) H 02/01/22 12:53 Calculated Osmolality 279 mOsm/kg (285-295) L 02/01/22 12:53 Lactic Acid 1.7 mmol/L (0.5-2.2) 02/01/22 11:40 Calcium 8.4 mg/dL (8.5-10.5) L 02/01/22 12:53 Magnesium 2.0 mg/dL (1.7-2.3) 02/01/22 12:53 Total Bilirubin 0.7 mg/dL (0.15-1.2) 02/01/22 12:53 AST 22 U/L (0-32) 02/01/22 12:53 ALT 13 U/L (0-33) 02/01/22 12:53 Alkaline Phosphatase 128 U/L (35-105) H 02/01/22 12:53 Creatine Kinase 149 U/L (26-192) 02/01/22 12:53 Troponin T Baseline 16 ng/L (0-10) H 02/01/22 11:40 Troponin T 120 Minute 17.94 ng/L (0-10) H 02/01/22 13:50 Delta Troponin T 1.94 ABS# (0-10) 02/01/22 13:50 NT-Pro-B Natriuret Pep 2617 pg/mL (0-125) H 02/01/22 12:53 Total Protein 5.8 g/dL (6.6-8.7) L 02/01/22 12:53 Albumin 3.4 g/dL (3.5-5.2) L 02/01/22 12:53 Globulin 2.4 g/dL (1.3-4.6) 02/01/22 12:53 Lipase 7 U/L (13-60) L 02/01/22 12:53 Serum Ketones Negative (Negative) 02/01/22 11:40 Coronavirus 229E (PCR) Not detected (NOT DETECT) 02/01/22 13:25 SARS-CoV-2 (PCR) Not detected (NOT DETECT) 02/01/22 13:25 Discharge Plan Discharge Patient Disposition: Admitted As Inpatient Admit Provider: Rip Driscoll Clinical Impression: Pneumonia, Chest pain, Acute respiratory failure with hypoxia, Borderline personality disorder, Opioid abuse, Cannabis abuse Condition: Stable Coding Level of Care Code ED Spoon Maker for Shellie Guallpa
[2022-02-01] MEDS: vancomycin 1,000 MG in sodium chloride 0.9% 250 ML 250 MG IV ×2 (15:36→21:19)
[2022-02-01] MEDS: levofloxacin-dextrose 5 % 750 MG/150 ML PREMIX 100 MG IV (15:36)
[2022-02-01] MEDS: aztreonam 2,000 MG in sodium chloride 0.9% (plus) 100 ML 200 MG IV (16:11)
[2022-02-01] MEDS: hydrocortisone 100 mg/2 mL SDV IVP ×2 (16:11→21:02)
[2022-02-01 16:13] LABS: Adenovirus Not Detected (NOT DETECT); Chlamydia Pneumoniae Not Detected (NOT DETECT); Coronavirus 229E,HKU1,NL63,OC4 Not Detected (NOT DETECT); Human Metapneumovirus Not Detected (NOT DETECT); Human Rhinovirus/Enterovirus Not Detected (NOT DETECT); Influenza A Not Detected (NOT DETECT); Influenza A H1 Not Detected (NOT DETECT); Influenza A H1-2009 Not Detected (NOT DETECT); Influenza A H3 Not Detected (NOT DETECT); Influenza B Not Detected (NOT DETECT); Mycoplasma Pneumoniae Not Detected (NOT DETECT); Parainfluenza Virus Type 1 Not Detected (NOT DETECT); Parainfluenza Virus Type 2 Not Detected (NOT DETECT); Parainfluenza Virus Type 3 Not Detected (NOT DETECT); Parainfluenza Virus Type 4 Not Detected (NOT DETECT); Respiratory Syncytial Virus A Not Detected (NOT DETECT); Respiratory Syncytial Virus B Not Detected (NOT DETECT); SARS-COV-2 Not Detected (NOT DETECT)
--- NOTE | 2022-02-01 17:05 | P.HP_ITS ---
Providers/Chief Complaint Primary Care Provider: Gordo Feng DO Chief Complaint: CHEST PAIN/ SOB History of Present Illness Pleasant 56-year-old lady was brought in from [facility] where she was undergoing opioid rehabilitation and became acutely hypoxic with acute hypoxic respiratory failure saturations down as low as 45% this morning. Last night she had episodes of vomiting which were pretty severe. In ER initially failing support with 15 L nonrebreather, was placed on BiPAP 80% FiO2 with gradual improvement in oxygen saturation. CT angiogram chest negative for PE, showing bilateral pneumonia. He reports also had some sharp chest pain, worse with deep breaths and cough. She reports has been coughing and producing green-yellow phlegm. COVID-[address] chest with also noted slight increase in mild to moderate mediastinal and bilateral hilar adenopathy, possibly reactive versus neoplastic. Sarcoidosis not ruled out. Blood pressure with fluctuation, down as low as MAP 66, although in doing a bit better after around 70 mmHg mean. NT proBNP elevated. Troponin with mild elevation, so far without positive delta. Denies abdominal pain. Denies diarrhea. Has been passing gas. CT abdomen unremarkable. Review of Systems Const: Denies: fever(s), chills, body aches or malaise Eyes: Denies: change in vision, eye discomfort or eye redness ENMT: Denies: throat pain, oral sores or ear or mastoid pain Card: Denies: chest pain, edema, pre-syncope or dyspnea on exertion Resp: Reports: dyspnea, productive cough and change in phlegm color; Denies: hemoptysis GI: Reports: vomiting; Denies: abdominal pain, nausea, diarrhea, constipation, hematochezia or melena : Denies: flank pain, urinary frequency or hematuria Musc: Denies: back pain, joint swelling or joint redness Skin/Breast: Denies: rash or new lesions Neuro: Denies: headache(s), numbness in extremities, weakness in extremities, dizziness, confusion or seizure-like activity Endo: Denies: polyuria or polydipsia Wilbur/Lymph: Denies: easy bleeding or tender lymph nodes All/Imm: Denies: urticaria or tongue swelling Medications/Allergies Home Medications Medication Instructions Recorded Confirmed Last Taken Type albuterol sulfate 90 mcg/actuation 2 puff inhalation Q6H PRN 09/26/20 02/01/22 11/09/20 16:00 History aerosol inhaler shortness of breath or wheezing acetaminophen 500 mg tablet 1,000 mg PO Q6H PRN Pain 07/09/21 02/01/22 01/27/22 History famotidine 20 mg tablet 20 mg PO DAILY@07/09/21 02/01/22 02/01/22 History fluticasone propionate 50 1 spray intranasal BID PRN Allergy 09/24/21 02/01/22 Unknown Rx mcg/actuation nasal Symptoms #16 grams spray,suspension pantoprazole 40 mg tablet,delayed 40 mg PO DAILY@11/04/21 02/01/22 02/01/22 History release ondansetron 4 mg disintegrating 4 mg PO Q8H PRN nausea and 01/05/22 02/01/22 02/01/22 Rx tablet vomiting #15 tabs dicyclomine 10 mg capsule 10 mg PO TID #60 caps 01/14/22 02/01/22 01/31/22 Rx buprenorphine 2 mg-naloxone 0.5 mg 0.5 tab sublingual DAILY@01/28/22 02/01/22 02/01/22 History sublingual tablet citalopram 20 mg tablet 40 mg PO BEDTIME@01/28/22 02/01/22 01/31/22 History clonidine HCl 0.1 mg tablet 0.1 mg PO BID PRN blood 01/28/22 02/01/22 Unknown History pressure/withdrawal fluticasone fur. 200 mcg-umeclid 1 ea inhalation DAILY@01/28/22 02/01/22 02/01/22 History 62.5 mcg-vilant 25 mcg inhalat.powder (Trelegy Ellipta) lamotrigine 200 mg tablet 200 mg PO DAILY@01/28/22 02/01/22 02/01/22 History quetiapine 300 mg tablet (Seroquel) 300 mg PO BEDTIME 01/28/22 02/01/22 01/31/22 History valbenazine 80 mg capsule 80 mg PO DAILY@01/28/22 02/01/22 02/01/22 History (Ingrezza) Allergies Allergy/AdvReac Type Severity Reaction Status Date / Time Penicillins Allergy Severe ALGY-Anaphy Verified 01/04/22 10:00 laxis sulfamethoxazole Allergy Severe ALGY-Hives Verified 01/04/22 10:00 [From Bactrim] Tetracyclines Allergy Severe ALGY-Hives Verified 01/04/22 10:00 gabapentin [From Neurontin] Allergy Intermediate ADR-Halluci Verified 01/04/22 10:00 nating ketorolac [From Toradol] Allergy Intermediate ALGY-Rash Verified 01/04/22 10:00 lithium Allergy Intermediate ADR-Halluci Verified 01/04/22 10:00 nating fentanyl Allergy Mild rash Verified 01/04/22 10:00 adhesive tape Allergy Rash Verified 01/04/22 10:00 codeine Allergy GI Verified 01/04/22 10:00 duloxetine [From Cymbalta] Allergy ALGY-Rash Verified 01/04/22 10:00 fluoxetine Allergy ADR-Migrain Verified 01/04/22 10:00 e haloperidol [From Haldol] Allergy unknown Verified 01/04/22 10:00 metoclopramide [From Reglan] Allergy ADR-Shakine Verified 01/04/22 10:00 ss tramadol Allergy Unknown Verified 01/04/22 10:00 trimethoprim [From Bactrim] Allergy ALGY-Hives Verified 01/04/22 10:00 ziprasidone [From Geodon] AdvReac Severe ADR-Halluci Verified 01/04/22 10:00 nating risperidone [From Risperdal] AdvReac ADR-Halluci Verified 01/04/22 10:00 nating PFSH Acute PFSH: Medical History Bladder stone Borderline personality disorder Chronic anxiety Chronic back pain greater than 3 months duration Chronic gastritis without bleeding COPD (chronic obstructive pulmonary disease) Cystitis cystica Dysphagia Esophageal stricture Foreign body in bladder GERD without esophagitis Neurogenic bladder Psychiatric care Restrictive lung disease Schizoaffective disorder, bipolar type Tardive dyskinesia Urgency incontinence Surgical History H/O bladder repair surgery MESH REPAIR H/O colonoscopy with polypectomy H/O esophagogastroduodenoscopy (09/21/20) H/O: hysterectomy History of appendectomy History of breast biopsy History of foot surgery sx in 2009. Screws placed by Dr. Don. History of ureter stent Hx of cholecystectomy S/P bronchoscopy with biopsy Family History Mother No problems noted. Father No problems noted. Other Asthma Cancer Diabetes Heart disease Social History Smoking and tobacco status: current every day smoker (0.5 ppd, started at age 27) cigarettes Packs smoked per day: 1 Years cigarettes smoked: 20 [ Other cigarette details: Hx of 1 PPD x 20 Years, started at age 27] Quit status (tobacco): considering quitting Second hand smoke exposure: Yes Smoking risk assessment/counseling performed?: No Alcohol intake: never Counseling given: No Counseling given: No Lives independently: Yes Household members: spouse Marital status: Number of children: 3 Current occupational status: disabled History of recent travel: No Current gender identity: Female Female Reproductive History: Date of last menstrual period: 06/19/95 Vitals/I&O/Wt Last Vital Signs Temp 98.2 F 02/01/22 11:43 Pulse 69 02/01/22 16:31 Resp 20 H 02/01/22 11:43 BP 132/76 02/01/22 11:43 Pulse Ox 96 02/01/22 16:31 O2 Del Method 02/01/22 11:43 O2 Flow Rate 15 02/01/22 11:43 FiO2 60 02/01/22 16:31 02/01/22 02/01/22 02/01/22 06:59 14:59 22:59 Intake Total 350 / 350 Balance 350 / 350 Weight last 48 hrs Weight 88.451 kg Physical Exam Const: COMMON NORMALS: patient oriented x3 and alert GENERAL APPEARANCE: cooperative ORIENTATION/CONSCIOUSNESS: Yes awake HENMT: COMMON NORMALS: oropharynx normal Neck/C-Spine: COMMON NORMALS: no JVD Resp: COMMON NORMALS: normal respiratory effort and clear to auscultation bilaterally AUSCULTATION: rhonchi, wheezes and diminished lung sounds Cardio: COMMON NORMALS: no JVD, regular rhythm, S1 normal heart sound present, S2 normal heart sound present and No murmurs present (Cardio) RHYTHM: regular rhythm HEART SOUNDS: S1 normal heart sound present and S2 normal heart sound present GI: COMMON NORMALS: Normal to inspection, nondistended, normoactive bowel sounds present, Soft to palpation and non-tender PALPATION: Yes Soft to palpation Extremity: COMMON NORMALS: no joint enlargement and no pedal edema Neuro: COMMON NORMALS: patient oriented x3 and moves all extremities SENSORIUM/ORIENTATION: Yes alert Skin: COMMON NORMALS: no rashes or lesions noted GENERAL SKIN EXAM: no rashes or lesions noted Data : 02/01/22 11:40 02/01/22 12:53 Micro: Microbiology 02/01/22 12:10 Blood Culture - Preliminary Blood SPECIMEN COLLECTED 02/01/22 12:07 Blood Culture - Preliminary Blood SPECIMEN COLLECTED A&P Assessment and plan (1) Acute respiratory failure with hypoxia: Suspect aspiration pneumonia and pneumonitis. She had episodes of vomiting yesterday, which she describes projectile. Continue oxygen support, BiPAP support, wean down as tolerating. Continue antibiotic coverage at this time including vancomycin given history of respiratory MRSA. So far no further vomiting. Denies any abdominal symptoms. COVID-19 PCR negative. She is so far showing mild gradual improvement. Status: Acute (2) Hypotension: With elevated BNP, fluid resuscitation restricted to 1 L. With concern for possible adrenal sufficiency given COPD, recurrent steroid use, started on stress dose steroids. Status: Acute (3) Chest pain: Resolved. Reported pleuritic chest pain with deep breaths, cough, suspect related to aspiration pneumonitis. No PE noted on CTA. Complete troponin EKG series, so far not suggestive of acute [place]. Status: Acute Plan Scoring high on suicide assessment scale, not active suicidal ideation. Has been undergoing opioid rehabilitation at [facility], although states does not want to return there. COPD Cystitis cystica Dysphagia: Denies any dysphagia or aspiration with food or drink Esophageal stricture GERD Neurogenic bladder Schizoaffective disorder, bipolar type Attestations Medical Necessity Statement*: Admission of over 2 midnights is going needed for assessment of management of acute hypoxic respiratory failure. 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
--- NOTE | 2022-02-01 17:10 | ECG_ITS ---
[facility] Test Date: 2022-02-01 Pat Name: Latesha Wilhelm Department: Room: Gender: Female Solution Engineer: : [id number] Requested By: [place] Order Number: [id number] Alice MD: Freida Sampson M.D. Measurements Intervals [place] Rate: 70 P: 60 WI: 151 QRS: 57 QRSD: 97 T: 50 QT: 418 QTc: 451 Interpretive Statements SINUS RHYTHM LOW QRS VOLTAGE IN PRECORDIAL LEADS [QRS DEFLECTION < 1.0 mV IN CHEST LEADS] Compared to ECG 02/01/2022 13:46:30 Low QRS voltage now present Electronically Signed On 02-01-2022 18:12:01 CDT by Freida Sampson M.D. [id number]
[2022-02-01 18:58] LABS: Troponin 5 6HR 14.03 ng/L (0-10)
[2022-02-01 19:01] LABS: Troponin 5 6HR Delta -1.97 ng/L (0-12)
--- NOTE | 2022-02-01 19:23 | PC.NURSE ---
Spoke w Family Called and updated patient [place], about current patient condition. Answered all questions.
[2022-02-01] MEDS: sodium chloride 0.9% 1,000 ML 999 ML IV (19:35)
[2022-02-01] MEDS: D5-NS 0.45% + KCL 20 mEq 20 MEQ/1,000 ML BAG 100 MEQ IV (20:52)
[2022-02-01] MEDS: pantoprazole 40 mg SDV IVP (21:00)
--- NOTE | 2022-02-01 21:00 | PC.PHAR ---
Vancomycin is dosed at 1000mg IVPB every 12 hours to produce a predicted trough level of 18.17 (pharmacokinetic analysis). A trough level has been ordered from the lab to be obtained before the fourth dose to confirm and adjust if needed.
[2022-02-01] MEDS: ondansetron 2 mg/ML SDV 2 mL 4 MG IVP (21:03)
[2022-02-01] MEDS: enoxaparin 40 mg/0.4 mL Syringe SUBCUT (21:04)
[2022-02-01 22:21] LABS: Glucose Urine UA Norm (Normal); Ketones Urine Negative (Negative); Protein Urine Trace (Negative); Specific Gravity, Urine 1.005 (1.005-1.030); Urine Appearance Clear (CLEAR); Urine Color Yellow (Yellow); pH Urine 5 (5-7)
[2022-02-01 22:22] LABS: Bilirubin Urine Neg (Negative); Blood Urine 2+ (Negative); Nitrate Urine Negative (Negative); Urobilinogen Urine Norm (Negative)
[2022-02-01 22:23] LABS: Add Urine Microscopic? YES; Leukocyte Esterase Urine Trace (Negative)
[2022-02-01 22:24] LABS: Bacteria Urine TRACE /hpf; Squamous Epithelial Cell Urine 0-4 /hpf (0-5)
[2022-02-01] MEDS: acetaminophen 325 mg Tablet 650 MG PO (22:26)
[2022-02-01] MEDS: ipratropium-albuterol 3 mL Neb INHALATION (23:56)
[2022-02-02] VITALS (111 sets, daily range): BP systolic 98–143; BP diastolic 36–92; PULSE 47–97; RESP 16–34; TEMP 36.4–36.6; O2SAT 84–100; BMI 34.2
[2022-02-02 03:54] LABS: Basophils % 0.1 %; Hematocrit 33.1 % (37.0-47.0); Hemoglobin 10.5 g/dL (11.5-15.3); Lymphocytes # 0.5 10^3/uL (0.8-4.8); Lymphocytes % 3.5 %; Mean Corpuscular HGB Conc 31.7 g/dL (30.0-36.0); Mean Corpuscular Hemoglobin 31.4 pg (28.0-34.0); Mean Corpuscular Volume 99.1 fl (81-99); Mean Platelet Volume 10.7 fL (7.4-10.4); Monocytes # 0.7 10^3/uL (0.2-0.9); Monocytes % 4.8 %; Neutrophils # 13.46 10^3/uL (1.8-7.7); Neutrophils % 90.7 %; Nucleated Red Blood Cells % 0 %; Platelet Count 148 10^3/cmm (130-400); Red Blood Count 3.34 10^6/uL (4.1-5.3); Red Cell Distribution Width 15.2 % (12.1-15.1); White Blood Count 14.9 10^3/uL (4.0-10.0)
[2022-02-02] MEDS: ipratropium-albuterol 3 mL Neb INHALATION ×5 (03:55→19:50)
[2022-02-02] MEDS: hydrocortisone 100 mg/2 mL SDV IVP ×4 (04:15→21:40)
[2022-02-02 04:39] LABS: Blood Urea Nitrogen 10 mg/dL (6-20); Carbon Dioxide 20 mmol/L (22-29); Chloride 103 mmol/L (98-107); Glomerular Filtration Rate 87.2 mL/min (90-130); Glucose 153 mg/dL (65-115); Osmolality Calculated 280 mOsm/kg (285-295); Sodium 134 mmol/L (136-145)
[2022-02-02 04:57] LABS: Anion Gap 15.2 (5-19); Potassium 4.2 mmol/L (3.5-5.1)
[2022-02-02] MEDS: D5-NS 0.45% + KCL 20 mEq 20 MEQ/1,000 ML BAG 100 MEQ IV ×2 (06:01→16:57)
--- NOTE | 2022-02-02 06:18 | PC.NURSE ---
Shift Note Frequent safety and comfort rounds continue. Orders and/or nursing care completed as indicated. Patient monitored for response to intervention and treatment(s). Education provided includes medications & treatment plan. Patient and verbalize understanding of teaching. Patient had uneventful shift, remains alert/oriented x4 on BIPAP 50% FiO2. No wounds or skin issues noted at this time. Hdez catheter drained 850 mls of urine overnight. IVF infusing per order, please see MAR for detail. Will continue to monitor.
[2022-02-02] MEDS: vancomycin 1,000 MG in sodium chloride 0.9% 250 ML 250 MG IV ×2 (09:22→21:40)
[2022-02-02] MEDS: polyethylene glycol 3350 Pkt 17 gm PO ×2 (09:22→16:59)
[2022-02-02] MEDS: ondansetron 2 mg/ML SDV 2 mL 4 MG IVP (09:27)
--- NOTE | 2022-02-02 11:33 | PC.CHAP ---
Pastoral Care Encounter/Spiritual Assessment Type of Contact [] Declined outside machinist supervisor visit [] Patient/Family/Request visit [] Outpatient visit [] Follow-up visit [] Physician referral [] Code/Alert [x] Routine visit [] Staff referral [] Actively dying [] Patient sleeping [x] Family support [] [] Out of room [] Palliative care [] [] Receiving care in room [] Pre-surgical visit [] Trauma [] Long length of stay [x] ICU visit [] Other: Relational/Emotional Strength [] Patient feels connected with others/family/visitors/staff [] Distress [] Loneliness/isolation [] Abandonment Spirituality of Patient [] Person of Kate [] Attends Sikhism of their Kate [] Believes in Prayer [] Reads Bible or Yazidism materials [] There are Spiritual issues to be addressed Director Of Solutions Architecture Interventions [x] Prayer [] Active listening [] Non-anxious presence [] Spiritual/emotional support [] Crisis/trauma care [] Spiritual counseling [] Bereavement support [] Provided bereavement packet [] Provided Bible/devotional materials [] Provided toy/stuffed animal, coloring book to patient or family member [] Provided Communion [] Anointing/[place] [] Salvation [x] Completed spiritual assessment [] Other: Impact on Illness or Injury [] Angry [] Fearful [] Anxious [] Often cries [] Exhaustion [] Unable to work [] Unable to attend baptist [] Unable to walk/stand [] Unable to read [] Unable to drive [] Unable to eat/drink [] Unable to sleep [] Unable to be with family [] Patient intubated [] Other: Summary Time spent with patient
[2022-02-02] MEDS: acetaminophen 325 mg Tablet 650 MG PO ×2 (12:27→19:33)
[2022-02-02] MEDS: levofloxacin-dextrose 5 % 750 MG/150 ML PREMIX 100 MG IV (16:58)
--- NOTE | 2022-02-02 20:27 | PM.PN ---
Subjective Subjective: This she is doing little better. Breathing little bit easier. Still some cough. Earlier in the morning with attempted transition to nasal cannula BiPAP he desaturated and BiPAP had to be resumed. Vitals/I&O/Wt Last Vital Signs Temp 97.8 F 02/02/22 08:30 Pulse 68 02/02/22 19:52 Resp 25 H 02/02/22 19:52 BP 117/58 02/02/22 16:00 Pulse Ox 94 02/02/22 19:52 O2 Del Method 02/02/22 19:52 O2 Flow Rate 10 02/02/22 11:26 FiO2 45 02/02/22 19:52 02/02/22 02/02/22 02/02/22 06:59 14:59 22:59 Intake Total 1255 / 3005 750 / 750 1480 / 2230 Output Total 850 / 850 1650 / 1650 750 / 2400 Balance 405 / 2155 -900 / -900 730 / -170 Weight last 48 hrs Weight 93.44 kg Weight 93.468 kg Weight 88.451 kg Physical Exam Const: COMMON NORMALS: patient oriented x3 and alert GENERAL APPEARANCE: cooperative ORIENTATION/CONSCIOUSNESS: Yes awake HENMT: COMMON NORMALS: oropharynx normal Neck/C-Spine: COMMON NORMALS: no JVD Resp: COMMON NORMALS: normal respiratory effort and clear to auscultation bilaterally AUSCULTATION: clear to auscultation bilaterally and wheezes (Milder today) Cardio: COMMON NORMALS: no JVD, regular rhythm, S1 normal heart sound present, S2 normal heart sound present and No murmurs present (Cardio) RHYTHM: regular rhythm HEART SOUNDS: S1 normal heart sound present and S2 normal heart sound present GI: COMMON NORMALS: Normal to inspection, nondistended, normoactive bowel sounds present, Soft to palpation and non-tender PALPATION: Yes Soft to palpation Extremity: COMMON NORMALS: no joint enlargement and no pedal edema Neuro: COMMON NORMALS: patient oriented x3 and moves all extremities SENSORIUM/ORIENTATION: Yes alert Skin: COMMON NORMALS: no rashes or lesions noted GENERAL SKIN EXAM: no rashes or lesions noted Urinary Catheter Management: Hdez: Cath Placed During This Visit: yes Reason for Continuing Indwelling Catheter: Accurate Measurement of Urinary Output in Critically Ill Patients Urinary Catheter Date of Insertion: 02/01/22 Urinary Catheter Time of Insertion: 21:30 Data : 02/02/22 03:17 02/02/22 03:17 Micro: Microbiology 02/01/22 12:07 Blood Culture - Preliminary Blood NEGATIVE TO DATE 02/01/22 12:10 Blood Culture - Preliminary Blood NEGATIVE TO DATE A&P Assessment and plan (1) Acute respiratory failure with hypoxia: Continue requirement for BiPAP support. For now continue care in ICU given easy desaturation. Wean off BiPAP as tolerating. Continue intravenous broad-spectrum antibiotic coverage. Suspect aspiration pneumonia and pneumonitis. She had episodes of vomiting yesterday, which she describes projectile. Continue oxygen support, BiPAP support, wean down as tolerating. Continue antibiotic coverage at this time including vancomycin given history of respiratory MRSA. So far no further vomiting. Denies any abdominal symptoms. COVID-19 PCR negative. She is so far showing mild gradual improvement. She later also reports mold in the bathroom of the rehabilitation unit she was staying in and allergy to mold. Status: Acute (2) Hypotension: Improved. Continue stress dose steroids for now. Status: Acute (3) Chest pain: Resolved. Some milder tightness today, pleuritic, likely related to pulmonary inflammation with aspiration pneumonitis and pneumonia. Reported pleuritic chest pain with deep breaths, cough, suspect related to aspiration pneumonitis. No PE noted on CTA. Complete troponin EKG series, so far not suggestive of acute [place]. Status: Acute Plan Scoring high on suicide assessment scale, not active suicidal ideation. Has been undergoing opioid rehabilitation at [facility], although states does not want to return there. COPD Cystitis cystica Dysphagia: Denies any dysphagia or aspiration with food or drink Esophageal stricture GERD Neurogenic bladder Schizoaffective disorder, bipolar type Attestations Medical Necessity Statement*: Continue admission for assessment of management of hypoxic respiratory failure, aspiration pneumonia requiring BiPAP support. 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
[2022-02-02] MEDS: enoxaparin 40 mg/0.4 mL Syringe SUBCUT (21:39)
[2022-02-02] MEDS: pantoprazole 40 mg SDV IVP (21:39)
[2022-02-02] MEDS: quetiapine 300 mg Tablet PO (21:39)
[2022-02-03] VITALS (39 sets, daily range): BP systolic 96–155; BP diastolic 47–82; PULSE 60–95; RESP 16–31; TEMP 36.2–37.2; O2SAT 90–99
[2022-02-03] MEDS: ipratropium-albuterol 3 mL Neb INHALATION ×6 (00:09→20:00)
[2022-02-03] MEDS: D5-NS 0.45% + KCL 20 mEq 20 MEQ/1,000 ML BAG 100 MEQ IV (02:31)
[2022-02-03 03:55] LABS: Basophils % 0.2 %; Eosinophils % 0.1 %; Hematocrit 39.8 % (37.0-47.0); Hemoglobin 11.4 g/dL (11.5-15.3); Lymphocytes # 1.4 10^3/uL (0.8-4.8); Lymphocytes % 8.8 %; Mean Corpuscular HGB Conc 28.6 g/dL (30.0-36.0); Mean Corpuscular Hemoglobin 31.8 pg (28.0-34.0); Mean Corpuscular Volume 110.9 fl (81-99); Mean Platelet Volume 10.9 fL (7.4-10.4); Monocytes # 1.1 10^3/uL (0.2-0.9); Monocytes % 6.8 %; Neutrophils # 13.47 10^3/uL (1.8-7.7); Neutrophils % 83.5 %; Nucleated Red Blood Cells % 0 %; Platelet Count 155 10^3/cmm (130-400); Red Blood Count 3.59 10^6/uL (4.1-5.3); Red Cell Distribution Width 15.5 % (12.1-15.1); White Blood Count 16.1 10^3/uL (4.0-10.0)
[2022-02-03] MEDS: hydrocortisone 100 mg/2 mL SDV IVP ×2 (04:12→08:20)
[2022-02-03 04:32] LABS: Alanine Aminotransferase 15 U/L (0-33); Albumin Level 2.9 g/dL (3.5-5.2); Alkaline Phosphatase 129 U/L (35-105); Anion Gap 14.9 (5-19); Aspartate Amino Transferase 22 U/L (0-32); Blood Urea Nitrogen 6 mg/dL (6-20); Calcium 8.2 mg/dL (8.5-10.5); Carbon Dioxide 22 mmol/L (22-29); Chloride 108 mmol/L (98-107); Globulin 2.1 g/dL (1.3-4.6); Glomerular Filtration Rate 104.2 mL/min (90-130); Glucose 134 mg/dL (65-115); Osmolality Calculated 292 mOsm/kg (285-295); Potassium 3.9 mmol/L (3.5-5.1); Sodium 141 mmol/L (136-145); Total Bilirubin 0.4 mg/dL (0.15-1.2)
[2022-02-03] MEDS: lamoTRIgine 100 mg Tablet 200 MG PO (05:06)
[2022-02-03] MEDS: vancomycin 1,000 MG in sodium chloride 0.9% 250 ML 250 MG IV ×2 (08:20→21:56)
[2022-02-03] MEDS: acetaminophen 325 mg Tablet 650 MG PO ×2 (08:20→17:20)
[2022-02-03] MEDS: polyethylene glycol 3350 Pkt 17 gm PO ×2 (08:21→17:20)
[2022-02-03] MEDS: ondansetron 2 mg/ML SDV 2 mL 4 MG IVP (08:41)
[2022-02-03] MEDS: benzonatate 100 mg Capsule 200 MG PO ×2 (10:33→17:20)
--- NOTE | 2022-02-03 11:58 | P.PN_ITS ---
Vitals/I&O/Wt Last Vital Signs Temp 99.0 F 02/03/22 08:30 Pulse 75 02/03/22 11:23 Resp 16 02/03/22 11:23 BP 128/70 02/03/22 08:30 Pulse Ox 92 02/03/22 11:23 O2 Del Method 02/03/22 11:23 O2 Flow Rate 10 02/03/22 11:23 FiO2 45 02/03/22 04:15 02/02/22 02/03/22 02/03/22 22:59 06:59 14:59 Intake Total 1580 / 2330 956.667 / 3286.667 890 / 890 Output Total 750 / 2400 2650 / 5050 Balance 830 / -70 -1693.333 / -1763.333 890 / 890 Weight last 48 hrs Weight 96.978 kg Weight 93.44 kg Weight 93.468 kg Physical Exam Const: COMMON NORMALS: patient oriented x3 and alert GENERAL APPEARANCE: cooperative ORIENTATION/CONSCIOUSNESS: Yes awake HENMT: COMMON NORMALS: oropharynx normal Neck/C-Spine: COMMON NORMALS: no JVD Resp: COMMON NORMALS: normal respiratory effort AUSCULTATION: wheezes (Milder today) and diminished lung sounds Cardio: COMMON NORMALS: no JVD, regular rhythm, S1 normal heart sound present, S2 normal heart sound present and No murmurs present (Cardio) RHYTHM: regular rhythm HEART SOUNDS: S1 normal heart sound present and S2 normal heart sound present GI: COMMON NORMALS: Normal to inspection, nondistended, normoactive bowel sounds present, Soft to palpation and non-tender PALPATION: Yes Soft to palpation Extremity: COMMON NORMALS: no joint enlargement and no pedal edema Neuro: COMMON NORMALS: patient oriented x3 and moves all extremities SENSORIUM/ORIENTATION: Yes alert Skin: COMMON NORMALS: no rashes or lesions noted GENERAL SKIN EXAM: no rashes or lesions noted Urinary Catheter Management: Hdez: Cath Placed During This Visit: yes Reason for Continuing Indwelling Catheter: Accurate Measurement of Urinary Output in Critically Ill Patients Urinary Catheter Date of Insertion: 02/01/22 Urinary Catheter Time of Insertion: 21:30 Data : 02/03/22 03:13 02/03/22 03:13 Micro: Microbiology 02/01/22 12:07 Blood Culture - Preliminary Blood NEGATIVE TO DATE 02/01/22 12:10 Blood Culture - Preliminary Blood NEGATIVE TO DATE A&P Assessment and plan (1) Acute respiratory failure with hypoxia: Was able to transition off BiPAP to larger diameter cannula at 10 L, however, very easily desaturated down to 70s with simple transfer from bed to chair. Ta jame long time for saturation to calm back. Worse wheezing today. Switch hydrocortisone to methylprednisolone. We will add also inhaled steroid. Antitussive. For now remains in ICU due to easy desaturation with minimal exertion. Continue intravenous broad-spectrum antibiotic coverage. Stop IVF. Suspect aspiration pneumonia and pneumonitis. She had episodes of vomiting yesterday, which she describes projectile. Continue oxygen support, BiPAP support, wean down as tolerating. Continue antibiotic coverage at this time including vancomycin given history of respiratory MRSA. So far no further vomiting. Denies any abdominal symptoms. COVID-19 PCR negative. She is so far showing slow improvement. She later also reports mold in the bathroom of the rehabilitation unit she was staying in and allergy to mold. Status: Acute (2) Hypotension: Improved. Steroid changed to Solu-Medrol as above. Status: Acute (3) Chest pain: Resolved. Some milder tightness today, pleuritic, likely related to pulmonary inflammation with aspiration pneumonitis and pneumonia. Reported pleuritic chest pain with deep breaths, cough, suspect related to aspiration pneumonitis. No PE noted on CTA. Complete troponin EKG series, so far not suggestive of acute [place]. Status: Acute Plan Scoring high on suicide assessment scale, not active suicidal ideation. Has been undergoing opioid rehabilitation at [facility], although states does not want to return there. COPD: With possible COPD exacerbation, with wheezing, decreased air entry, cough. Antibiotics, IV steroid as above. Breathing treatments. Inhaled steroid. Cystitis cystica Dysphagia: Denies any dysphagia or aspiration with food or drink Esophageal stricture GERD Neurogenic bladder Schizoaffective disorder, bipolar type Attestations Medical Necessity Statement*: Continue admission for assessment management of hypoxic respiratory failure, pneumonia. 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
[2022-02-03] MEDS: levofloxacin-dextrose 5 % 750 MG/150 ML PREMIX 100 MG IV (17:21)
[2022-02-03] MEDS: budesonide 0.5 mg/2 mL Neb INHALATION (20:00)
[2022-02-03] MEDS: pantoprazole 40 mg SDV IVP (20:10)
[2022-02-03] MEDS: enoxaparin 40 mg/0.4 mL Syringe SUBCUT (20:11)
[2022-02-03] MEDS: quetiapine 300 mg Tablet PO (20:11)
[2022-02-03] MEDS: citalopram 20 mg Tablet 40 MG PO (20:12)
--- NOTE | 2022-02-03 21:24 | PC.NURSE ---
At approximately 1999, Pt assisted up to the chair for bath with assist of 1. Pt's oxygen decreased to 73% on 10 L high flow. Oxygen increased to 15L, and oxygen saturation increased to mid 90's within 2 minutes. Oxygen then decreased back to 10L high flow.
--- NOTE | 2022-02-03 21:33 | PC.NURSE ---
Pt wears BiPAP intermittently. Scant amount of sediment present in angelo tubing. Pt reports that she coughed up thick yellow sputum earlier, but no cough observed.
[2022-02-03 21:38] LABS: Vancomycin Trough 9.8 ug/mL (10-15)
--- NOTE | 2022-02-03 22:11 | PC.PHAR ---
Vancomycin trough is 9.0. Dosage is increased to 1500mg IVPB every12 hours with another trough to be obtained before the fourth 1500mg dose to determine if further adjustment is needed.
[2022-02-04] VITALS (35 sets, daily range): BP systolic 112–144; BP diastolic 49–90; PULSE 66–103; RESP 14–32; TEMP 36.4–36.8; O2SAT 92–98; BMI 35.6
[2022-02-04] MEDS: ipratropium-albuterol 3 mL Neb INHALATION ×6 (00:15→20:40)
[2022-02-04 05:37] LABS: Basophils % 0.2 %; Hematocrit 35.5 % (37.0-47.0); Hemoglobin 11.2 g/dL (11.5-15.3); Lymphocytes # 0.8 10^3/uL (0.8-4.8); Mean Corpuscular HGB Conc 31.5 g/dL (30.0-36.0); Mean Corpuscular Hemoglobin 31.5 pg (28.0-34.0); Mean Platelet Volume 11.8 fL (7.4-10.4); Monocytes # 0.5 10^3/uL (0.2-0.9); Monocytes % 3.1 %; Neutrophils # 14.42 10^3/uL (1.8-7.7); Neutrophils % 90.6 %; Nucleated Red Blood Cells % 0 %; Platelet Count 175 10^3/cmm (130-400); Red Blood Count 3.55 10^6/uL (4.1-5.3); Red Cell Distribution Width 15.3 % (12.1-15.1); White Blood Count 15.9 10^3/uL (4.0-10.0)
[2022-02-04 05:54] LABS: Alanine Aminotransferase 14 U/L (0-33); Albumin Level 2.7 g/dL (3.5-5.2); Alkaline Phosphatase 131 U/L (35-105); Aspartate Amino Transferase 14 U/L (0-32); Blood Urea Nitrogen 9 mg/dL (6-20); Calcium 8.8 mg/dL (8.5-10.5); Carbon Dioxide 23 mmol/L (22-29); Chloride 107 mmol/L (98-107); Globulin 2.7 g/dL (1.3-4.6); Glomerular Filtration Rate 128.6 mL/min (90-130); Glucose 163 mg/dL (65-115); Osmolality Calculated 292 mOsm/kg (285-295); Sodium 140 mmol/L (136-145); Total Bilirubin 0.3 mg/dL (0.15-1.2); Total Protein 5.4 g/dL (6.6-8.7)
[2022-02-04] MEDS: acetaminophen 325 mg Tablet 650 MG PO ×2 (05:56→12:15)
[2022-02-04] MEDS: lamoTRIgine 100 mg Tablet 200 MG PO (05:56)
[2022-02-04] MEDS: ondansetron 2 mg/ML SDV 2 mL 4 MG IVP (05:57)
[2022-02-04 07:11] LABS: Slide Review Slide Review Perform
[2022-02-04] MEDS: budesonide 0.5 mg/2 mL Neb INHALATION ×2 (07:31→20:40)
[2022-02-04] MEDS: polyethylene glycol 3350 Pkt 17 gm PO ×2 (08:55→17:56)
[2022-02-04] MEDS: vancomycin 1,500 MG/300 ML PIGGYBACK 100 MG IV ×2 (08:55→17:56)
[2022-02-04] MEDS: benzonatate 100 mg Capsule 200 MG PO (09:02)
--- NOTE | 2022-02-04 09:10 | PC.SOCIAL ---
IMM Update pg 2 of IMM updated and reviewed w/ patient. Copy signed by patient and provided to patient. Copy dated, initialed and placed in chart.
--- NOTE | 2022-02-04 11:51 | XRR_ITS ---
PROCEDURE INFORMATION: Exam: XR Chest Exam date and time: 02/04/2022 12:12 PM Age: 56 years old Clinical indication: Other: Hypoxia; Additional info: Follow up, hypoxia TECHNIQUE: Imaging protocol: Radiologic exam of the chest. Views: 1 view. COMPARISON: CR XR chest 1V portable [id number] 02/01/2022 11:54 AM FINDINGS: Lungs: Unremarkable. No consolidation. Pleural spaces: Unremarkable. No pleural effusion. No pneumothorax. Heart/Mediastinum: Unremarkable. No cardiomegaly. Bones/joints: Unremarkable. XR/XR chest 1V portable [id number] IMPRESSION: No acute findings.
--- NOTE | 2022-02-04 12:38 | PC.CHAP ---
Pastoral Care Encounter/Spiritual Assessment Type of Contact [] Declined catheter builder visit [] Patient/Family/Request visit [] Outpatient visit [] Follow-up visit [] Physician referral [] Code/Alert [x] Routine visit [] Staff referral [] Actively dying [x] Patient sleeping [] Family support [] [] Out of room [] Palliative care [] [] Receiving care in room [] Pre-surgical visit [] Trauma [] Long length of stay [x] ICU visit [] Other: Relational/Emotional Strength [] Patient feels connected with others/family/visitors/staff [] Distress [] Loneliness/isolation [] Abandonment Spirituality of Patient [] Person of Kate [] Attends Druze of their Kate [] Believes in Prayer [] Reads Bible or Adventism materials [] There are Spiritual issues to be addressed Consulting Sme Interventions [x] Prayer [] Active listening [] Non-anxious presence [] Spiritual/emotional support [] Crisis/trauma care [] Spiritual counseling [] Bereavement support [] Provided bereavement packet [] Provided Bible/devotional materials [] Provided toy/stuffed animal, coloring book to patient or family member [] Provided Communion [] Anointing/[place] [] Salvation [x] Completed spiritual assessment [] Other: Impact on Illness or Injury [] Angry [] Fearful [] Anxious [] Often cries [] Exhaustion [] Unable to work [] Unable to attend faith [] Unable to walk/stand [] Unable to read [] Unable to drive [] Unable to eat/drink [] Unable to sleep [] Unable to be with family [] Patient intubated [] Other: Summary Time spent with patient
--- NOTE | 2022-02-04 14:27 | P.PN_ITS ---
Subjective Subjective: This morning she was not feeling any much better compared to yesterday. No shortness of breath, wheezing, productive cough. Vitals/I&O/Wt Last Vital Signs Temp 97.6 F 02/04/22 04:00 Pulse 75 02/04/22 12:00 Resp 22 H 02/04/22 12:00 BP 133/67 02/04/22 12:00 Pulse Ox 97 02/04/22 12:00 O2 Del Method 02/04/22 12:00 O2 Flow Rate 8 02/04/22 12:00 FiO2 45 02/04/22 00:30 02/03/22 02/04/22 02/04/22 22:59 06:59 14:59 Intake Total 972 / 3275.333 694 / 3969.333 980 / 980 Output Total 1775 / 3575 1225 / 4800 Balance -803 / -299.667 -531 / -830.667 980 / 980 Weight last 48 hrs Weight 97.069 kg Weight 96.978 kg Physical Exam Const: COMMON NORMALS: patient oriented x3 and alert GENERAL APPEARANCE: c ooperative ORIENTATION/CONSCIOUSNESS: Yes awake HENMT: COMMON NORMALS: oropharynx normal Neck/C-Spine: COMMON NORMALS: no JVD Resp: COMMON NORMALS: normal respiratory effort and clear to auscultation bilaterally AUSCULTATION: clear to auscultation bilaterally, wheezes and diminished lung sounds Cardio: COMMON NORMALS: no JVD, regular rhythm, S1 normal heart sound present, S2 normal heart sound present and No murmurs present (Cardio) RHYTHM: regular rhythm HEART SOUNDS: S1 normal heart sound present and S2 normal heart sound present GI: COMMON NORMALS: Normal to inspection, nondistended, normoactive bowel sounds present, Soft to palpation and non-tender PALPATION: Yes Soft to palpation Extremity: COMMON NORMALS: no joint enlargement and no pedal edema Neuro: COMMON NORMALS: patient oriented x3 and moves all extremities SENSORIUM/ORIENTATION: Yes alert Skin: COMMON NORMALS: no rashes or lesions noted GENERAL SKIN EXAM: no rashes or lesions noted Urinary Catheter Management: Hdez: Cath Placed During This Visit: yes Reason for Continuing Indwelling Catheter: Accurate Measurement of Urinary Output in Critically Ill Patients Urinary Catheter Date of Insertion: 02/01/22 Urinary Catheter Time of Insertion: 21:30 Data : 02/04/22 04:28 02/04/22 04:28 Micro: Microbiology 02/03/22 11:28 Gram Stain - Final Sputum - Expectorated Sputum Sputum Culture - Preliminary A&P Assessment and plan (1) Acute respiratory failure with hypoxia: As she was still requiring 2 L of oxygen support this morning, still dyspneic, with wheezing. Productive cough. Requested follow-up chest x-ray. Noted no a cute findings, pneumonia is clearing up.. She is still having bronchial activity/COPD exacerbation. At this time continue IV steroid, inhaled steroid. Continue breathing treatments. Antibiotic. For now remains in ICU due to easy desaturation with minimal exertion. Continue intravenous broad-spectrum antibiotic coverage. Suspect aspiration pneumonia and pneumonitis. She had episodes of vomiting. Continue oxygen support, BiPAP support, wean down as tolerating. Continue antibiotic coverage at this time including vancomycin given history of respiratory MRSA. So far no further vomiting. Denies any abdominal symptoms. COVID-19 PCR negative. She is so far showing slow improvement. She later also reports mold in the bathroom of the rehabilitation unit she was staying in and allergy to mold. Status: Acute (2) Hypotension: Improved. Steroid changed to Solu-Medrol as above. Status: Acute (3) Chest pain: Resolved. Some milder tightness today, pleuritic, likely related to pulmonary inflammation with aspiration pneumonitis and pneumonia. Reported pleuritic chest pain with deep breaths, cough, suspect related to aspiration pneumonitis. No PE noted on CTA. Complete troponin EKG series, so far not suggestive of acute AL. Status: Acute Plan Scoring high on suicide assessment scale, not active suicidal ideation. Has been undergoing opioid rehabilitation at [facility], although states does not want to return there. COPD: With COPD exacerbation, with wheezing, decreased air entry, cough. Antibiotics, IV steroid as above. Breathing treatments. Inhaled steroid. Cystitis cystica Dysphagia: Denies any dysphagia or aspiration with food or drink Esophageal stricture GERD Neurogenic bladder Schizoaffective disorder, bipolar type Attestations Medical Necessity Statement*: Continue admission for assessment management of hypoxic respiratory failure. 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
[2022-02-04] MEDS: levofloxacin-dextrose 5 % 750 MG/150 ML PREMIX 100 MG IV (16:10)
--- NOTE | 2022-02-04 18:08 | PC.NURSE ---
Report called to Jennifer, no further questions.
--- NOTE | 2022-02-04 19:02 | PC.NURSE ---
Patient and belongings taken to 251[facility]. Bedside report given. Patient [id number], no signs of pain or discomfort.
[2022-02-04] MEDS: pantoprazole 40 mg SDV IVP (20:58)
[2022-02-04] MEDS: enoxaparin 40 mg/0.4 mL Syringe SUBCUT (20:59)
[2022-02-04] MEDS: citalopram 20 mg Tablet 40 MG PO (20:59)
[2022-02-04] MEDS: quetiapine 300 mg Tablet PO (20:59)
[2022-02-05] VITALS (17 sets, daily range): BP systolic 118–159; BP diastolic 67–81; PULSE 67–89; RESP 12–24; TEMP 36.6–36.8; O2SAT 91–99
[2022-02-05] MEDS: ipratropium-albuterol 3 mL Neb INHALATION ×8 (00:09→23:14)
[2022-02-05] MEDS: vancomycin 1,500 MG/300 ML PIGGYBACK 100 MG IV ×3 (02:05→21:57)
[2022-02-05] MEDS: acetaminophen 325 mg Tablet 650 MG PO ×2 (02:12→11:16)
[2022-02-05] MEDS: ondansetron 2 mg/ML SDV 2 mL 4 MG IVP (04:43)
[2022-02-05 04:52] LABS: Basophils % 0.2 %; Hematocrit 36.2 % (37.0-47.0); Hemoglobin 11.7 g/dL (11.5-15.3); Lymphocytes % 5.2 %; Mean Corpuscular HGB Conc 32.3 g/dL (30.0-36.0); Mean Corpuscular Hemoglobin 31.5 pg (28.0-34.0); Mean Corpuscular Volume 97.3 fl (81-99); Mean Platelet Volume 10.7 fL (7.4-10.4); Monocytes # 0.9 10^3/uL (0.2-0.9); Monocytes % 4.6 %; Neutrophils % 88.7 %; Nucleated Red Blood Cells % 0 %; Platelet Count 211 10^3/cmm (130-400); Red Blood Count 3.72 10^6/uL (4.1-5.3); Red Cell Distribution Width 15.4 % (12.1-15.1); White Blood Count 19.9 10^3/uL (4.0-10.0)
[2022-02-05] MEDS: lamoTRIgine 100 mg Tablet 200 MG PO (04:54)
[2022-02-05 05:26] LABS: Alanine Aminotransferase 11 U/L (0-33); Alkaline Phosphatase 132 U/L (35-105); Aspartate Amino Transferase 10 U/L (0-32); Blood Urea Nitrogen 16 mg/dL (6-20); Calcium 8.6 mg/dL (8.5-10.5); Carbon Dioxide 24 mmol/L (22-29); Chloride 103 mmol/L (98-107); Globulin 1.6 g/dL (1.3-4.6); Glomerular Filtration Rate 87.2 mL/min (90-130); Glucose 189 mg/dL (65-115); Osmolality Calculated 292 mOsm/kg (285-295); Sodium 138 mmol/L (136-145); Total Bilirubin 0.2 mg/dL (0.15-1.2); Total Protein 4.6 g/dL (6.6-8.7)
[2022-02-05] MEDS: budesonide 0.5 mg/2 mL Neb INHALATION ×2 (07:52→19:28)
--- NOTE | 2022-02-05 13:49 | CTR_ITS ---
PROCEDURE INFORMATION: Exam: CT Abdomen And Pelvis Without Contrast Exam date and time: 02/05/2022 2:47 PM Age: 56 years old Clinical indication: Abdominal pain; Localized; Lower; Prior surgery; Surgery date: 6+ months; TECHNIQUE: Imaging protocol: Computed tomography of the abdomen and pelvis without contrast. Radiation optimization: All CT scans at this facility use at least one of these dose optimization techniques: automated exposure control; mA and/or kV adjustment per patient size (includes targeted exams where dose is matched to clinical indication); or iterative reconstruction. COMPARISON: CT abdomen pelvis con [id number] 01/05/2022 2:15 AM RADIATION DOSE METRICS: Total DLP (mGy-cm): 945.67 FINDINGS: Lungs: There are ground-glass opacities at the lung bases. Bilateral pleural effusions. Liver: Normal. No mass. Gallbladder and bile ducts: The gallbladder has been removed. Pancreas: Normal. No ductal dilation. Spleen: Normal. No splenomegaly. Adrenal glands: Normal. No mass. Kidneys and ureters: Punctate nonobstructing right renal calculus. Stomach and bowel: Moderate stool burden. Appendix: No evidence of appendicitis. Intraperitoneal space: Unremarkable. No free air. No significant fluid collection. Vasculature: Unremarkable. No abdominal aortic aneurysm. Lymph nodes: Unremarkable. No enlarged lymph nodes. Urinary bladder: There is a Hdez catheter and air in the bladder. Reproductive: The uterus is not visualized, consistent with hysterectomy. Bones/joints: There degenerative changes in the visualized spine. There is osseous fusion across the T11-T12 level. Soft tissues: There is edema in the soft tissues surrounding the lower abdomen and pelvis. CT/CT abdomen pelvis con [id number] IMPRESSION: Bilateral pleural effusions. Ground-glass opacities at the lung bases are nonspecific and can be seen with pulmonary edema and/or pneumonia.
[2022-02-05] MEDS: morphine 4 mg/mL SDV 1 mL 2 MG IVP ×3 (14:00→22:20)
[2022-02-05] MEDS: levofloxacin-dextrose 5 % 750 MG/150 ML PREMIX 100 MG IV (17:37)
[2022-02-05] MEDS: citalopram 20 mg Tablet 40 MG PO (20:35)
[2022-02-05] MEDS: quetiapine 300 mg Tablet PO (20:35)
[2022-02-05] MEDS: enoxaparin 40 mg/0.4 mL Syringe SUBCUT (20:35)
--- NOTE | 2022-02-05 20:54 | PM.PN ---
Subjective Subjective: Severe abdominal pain today. Nonspecific, sharp. Requesting for pain medication. Earlier in the day episode severe diarrhea after MiraLAX. MiraLAX stopped. Gets easily dyspneic with exertion. Worked with therapy. Oxygenation gradually improving. Intermittently requiring BiPAP after exertion. Vitals/I&O/Wt Last Vital Signs Temp 98 F 02/05/22 16:00 Pulse 67 02/05/22 19:29 Resp 20 H 02/05/22 19:29 BP 159/77 02/05/22 16:00 Pulse Ox 91 02/05/22 19:29 O2 Del Method 02/05/22 19:29 O2 Flow Rate 4 02/05/22 20:00 FiO2 45 02/05/22 15:53 02/05/22 02/05/22 02/05/22 06:59 14:59 22:59 Intake Total 1020 / 3050 1020 / 1020 630 / 1650 Output Total 950 / 2850 Balance 70 / 200 1020 / 1020 630 / 1650 Weight last 48 hrs Weight 102.682 kg Weight 97.069 kg Physical Exam Const: COMMON NORMALS: patient oriented x3 and alert GENERAL APPEARANCE: cooperative ORIENTATION/CONSCIOUSNESS: Yes awake HENMT: COMMON NORMALS: oropharynx normal Neck/C-Spine: COMMON NORMALS: no JVD Resp: COMMON NORMALS: normal respiratory effort and clear to auscultation bilaterally AUSCULTATION: clear to auscultation bilaterally, wheezes and diminished lung sounds Cardio: COMMON NORMALS: no JVD, regular rhythm, S1 normal heart sound present, S2 normal heart sound present and No murmurs present (Cardio) RHYTHM: regular rhythm HEART SOUNDS: S1 normal heart sound present and S2 normal heart sound present GI: COMMON NORMALS: Normal to inspection, nondistended, normoactive bowel sounds present, Soft to palpation and non-tender PALPATION: Yes Soft to palpation Extremity: COMMON NORMALS: no joint enlargement and no pedal edema Neuro: COMMON NORMALS: patient oriented x3 and moves all extremities SENSORIUM/ORIENTATION: Yes alert Skin: COMMON NORMALS: no rashes or lesions noted GENERAL SKIN EXAM: no rashes or lesions noted Urinary Catheter Management: Hdez: Cath Placed During This Visit: yes Reason for Continuing Indwelling Catheter: Other Urinary Catheter Date of Insertion: 02/01/22 Urinary Catheter Time of Insertion: 21:30 Data : 02/05/22 04:30 02/05/22 04:30 Micro: Microbiology 02/03/22 11:28 Gram Stain - Final Sputum - Expectorated Sputum Sputum Culture - Final A&P Assessment and plan (1) Acute respiratory failure with hypoxia: Easy desaturation with exertion. However, oxygenation gradually improving. Continue current course with IV steroid, antibiotics. Continue oxygen support. Wean down as tolerating. Intermittently requiring BiPAP after exertion. Inhaled steroids. Breathing treatments. Mobilize as tolerating. Heavy normal tonia on sputum culture so far. She is still having bronchial activity/COPD exacerbation. At this time continue IV steroid, inhaled steroid. Suspect component of aspiration pneumonia and pneumonitis. She had episodes of vomiting. Pneumonia clearing up on imaging. Continue oxygen support, BiPAP support, wean down as tolerating. Continue antibiotic coverage at this time including vancomycin given history of respiratory MRSA. So far no further vomiting. Denies any abdominal symptoms. COVID-19 PCR negative. She is so far showing slow improvement. She later also reports mold in the bathroom of the rehabilitation unit she was staying in and allergy to mold. Status: Acute (2) Hypotension: Improved. Steroid changed to Solu-Medrol as above. Status: Acute (3) Chest pain: Resolved. Reported pleuritic chest pain with deep breaths, cough, suspect related to aspiration pneumonitis. No PE noted on CTA. Complete troponin EKG series, so far not suggestive of acute IA. Status: Acute Plan Scoring high on suicide assessment scale, not active suicidal ideation. Has been undergoing opioid rehabilitation at [facility], although states does not want to return there. COPD: As above Cystitis cystica Dysphagia: Denies any dysphagia or aspiration with food or drink Esophageal stricture GERD Neurogenic bladder Schizoaffective disorder, bipolar type Attestations Medical Necessity Statement*: Continue admission for assessment of management of hypoxic respiratory failure. 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
[2022-02-05] MEDS: pantoprazole 40 mg SDV IVP (21:02)
[2022-02-06] VITALS (18 sets, daily range): BP systolic 123–160; BP diastolic 73–81; PULSE 61–85; RESP 12–19; TEMP 36.6–37.1; O2SAT 94–99
[2022-02-06] MEDS: morphine 4 mg/mL SDV 1 mL 2 MG IVP ×5 (02:46→22:03)
[2022-02-06] MEDS: ipratropium-albuterol 3 mL Neb INHALATION ×6 (03:09→23:35)
[2022-02-06 04:45] LABS: Basophils % 0.1 %; Hematocrit 36.5 % (37.0-47.0); Hemoglobin 11.7 g/dL (11.5-15.3); Lymphocytes # 1.2 10^3/uL (0.8-4.8); Lymphocytes % 6.9 %; Mean Corpuscular HGB Conc 32.1 g/dL (30.0-36.0); Mean Corpuscular Hemoglobin 31.3 pg (28.0-34.0); Mean Corpuscular Volume 97.6 fl (81-99); Mean Platelet Volume 10.8 fL (7.4-10.4); Monocytes # 0.8 10^3/uL (0.2-0.9); Monocytes % 5.1 %; Neutrophils # 14.24 10^3/uL (1.8-7.7); Nucleated Red Blood Cells % 0 %; Platelet Count 215 10^3/cmm (130-400); Red Blood Count 3.74 10^6/uL (4.1-5.3); Red Cell Distribution Width 15.2 % (12.1-15.1); White Blood Count 16.6 10^3/uL (4.0-10.0)
[2022-02-06 05:09] LABS: Alanine Aminotransferase 10 U/L (0-33); Albumin Level 2.7 g/dL (3.5-5.2); Alkaline Phosphatase 114 U/L (35-105); Anion Gap 12.4 (5-19); Aspartate Amino Transferase 9 U/L (0-32); Blood Urea Nitrogen 20 mg/dL (6-20); Calcium 8.4 mg/dL (8.5-10.5); Carbon Dioxide 26 mmol/L (22-29); Chloride 104 mmol/L (98-107); Globulin 2.4 g/dL (1.3-4.6); Glomerular Filtration Rate 87.2 mL/min (90-130); Glucose 165 mg/dL (65-115); Osmolality Calculated 292 mOsm/kg (285-295); Potassium 4.4 mmol/L (3.5-5.1); Sodium 138 mmol/L (136-145); Total Bilirubin 0.3 mg/dL (0.15-1.2); Total Protein 5.1 g/dL (6.6-8.7)
[2022-02-06] MEDS: vancomycin 1,500 MG/300 ML PIGGYBACK 100 MG IV ×2 (05:23→12:30)
[2022-02-06] MEDS: lamoTRIgine 100 mg Tablet 200 MG PO (05:33)
[2022-02-06] MEDS: budesonide 0.5 mg/2 mL Neb INHALATION ×2 (07:37→19:56)
--- NOTE | 2022-02-06 09:17 | PC.SOCIAL ---
IMM Updated Updated pt on IMM. No questions voiced. Provided pt a copy. Initialed, dated, & timed copy in chart.
[2022-02-06] MEDS: levofloxacin-dextrose 5 % 750 MG/150 ML PREMIX 100 MG IV (17:55)
--- NOTE | 2022-02-06 20:06 | P.PN_ITS ---
Subjective Subjective: She is gradually improving. Worked with therapy today. Did her personal grooming. Did get very tired afterward, but oxygenation has been slowly improving. No further diarrhea. Vitals/I&O/Wt Last Vital Signs Temp 98.2 F 02/06/22 20:00 Pulse 72 02/06/22 20:00 Resp 17 02/06/22 20:00 BP 156/81 02/06/22 20:00 Pulse Ox 95 02/06/22 20:00 O2 Del Method 02/06/22 19:57 O2 Flow Rate 3 02/06/22 19:57 FiO2 45 02/05/22 15:53 02/06/22 02/06/22 02/06/22 06:59 14:59 22:59 Intake Total 420 / 2430 660 / 660 690 / 1350 Output Total 850 / 1950 1600 / 1600 Balance -430 / 480 660 / 660 -910 / -250 Weight last 48 hrs Weight 105.233 kg Weight 102.682 kg Physical Exam Const: COMMON NORMALS: patient oriented x3 and alert GENERAL APPEARANCE: cooperative ORIENTATION/CONSCIOUSNESS: Yes awake HENMT: COMMON NORMALS: oropharynx normal Neck/C-Spine: COMMON NORMALS: no JVD Resp: COMMON NORMALS: normal respiratory effort and clear to auscultation bilaterally AUSCULTATION: clear to auscultation bilaterally, wheezes and diminished lung sounds Cardio: COMMON NORMALS: no JVD, regular rhythm, S1 normal heart sound present, S2 normal heart sound present and No murmurs present (Cardio) RHYTHM: regular rhythm HEART SOUNDS: S1 normal heart sound present and S2 normal heart sound present GI: COMMON NORMALS: Normal to inspection, nondistended, normoactive bowel sounds present, Soft to palpation and non-tender PALPATION: Yes Soft to palpation Extremity: COMMON NORMALS: no joint enlargement and no pedal edema Neuro: COMMON NORMALS: patient oriented x3 and moves all extremities SENSORIUM/ORIENTATION: Yes alert Skin: COMMON NORMALS: no rashes or lesions noted GENERAL SKIN EXAM: no rashes or lesions noted Urinary Catheter Management: Hdez: Cath Placed During This Visit: yes Reason for Continuing Indwelling Catheter: Other Urinary Catheter Date of Insertion: 02/01/22 Urinary Catheter Time of Insertion: 21:30 Data : 02/06/22 04:01 02/06/22 04:01 Micro: Microbiology 02/01/22 12:10 Blood Culture - Final Blood NO GROWTH AFTER 5 DAYS 02/01/22 12:07 Blood Culture - Final Blood NO GROWTH AFTER 5 DAYS A&P Assessment and plan (1) Acute respiratory failure with hypoxia: She is slowly improving. Still gets dyspneic with exertion. Better air movement on exam. Resolving wheezing. We will see if we can de-escalate her to oral steroid. If continues to improve likely may be able to return home instead of [facility] facility. Continue antibiotics. Continue oxygen support. Wean down as tolerating. Inhaled steroids. Breathing treatments. Mobilize as tolerating. Heavy normal tonia on sputum culture so far. She is still having bronchial activity/COPD exacerbation. At this time continue IV steroid, inhaled steroid. Suspect component of aspiration pneumonia and pneumonitis. She had episodes of vomiting. Pneumonia clearing up on imaging. Continue oxygen support, BiPAP support, wean down as tolerating. Continue antibiotic coverage at this time including vancomycin given history of r espiratory MRSA. So far no further vomiting. Denies any abdominal symptoms. COVID-19 PCR negative. She is so far showing slow improvement. She later also reports mold in the bathroom of the rehabilitation unit she was staying in and allergy to mold. Does not want to go back to [facility]. Status: Acute (2) Hypotension: Improved. Steroid changed to Solu-Medrol as above. Status: Acute (3) Chest pain: Resolved. Reported pleuritic chest pain with deep breaths, cough, suspect related to aspiration pneumonitis. No PE noted on CTA. Complete troponin EKG series, so far not suggestive of acute CA. Status: Acute Plan Scoring high on suicide assessment scale, not active suicidal ideation. Please reassess prior to discharge. Has been following up with [facility]. Has been undergoing opioid rehabilitation at [facility], although states does not want to return there. COPD: As above Cystitis cystica Dysphagia: Denies any dysphagia or aspiration with food or drink Esophageal stricture GERD Neurogenic bladder Schizoaffective disorder, bipolar type Attestations Medical Necessity Statement*: Continue admission for assessment of management of hypoxic respite failure, de-escalation of treatment, disposition planning. 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
[2022-02-06] MEDS: pantoprazole 40 mg SDV IVP (20:23)
[2022-02-06 20:49] LABS: Vancomycin Trough 30.2 ug/mL (10-15)
[2022-02-06] MEDS: citalopram 20 mg Tablet 40 MG PO (21:11)
[2022-02-06] MEDS: enoxaparin 40 mg/0.4 mL Syringe SUBCUT (21:11)
[2022-02-06] MEDS: quetiapine 300 mg Tablet PO (21:11)
[2022-02-07] VITALS (17 sets, daily range): BP systolic 112–147; BP diastolic 75–80; PULSE 70–80; RESP 15–18; TEMP 36.6–36.9; O2SAT 88–99
[2022-02-07] MEDS: morphine 4 mg/mL SDV 1 mL 2 MG IVP ×5 (02:21→20:06)
[2022-02-07] MEDS: ipratropium-albuterol 3 mL Neb INHALATION ×6 (03:26→23:35)
[2022-02-07 05:06] LABS: Basophils % 0.3 %; Eosinophils % 0.2 %; Hematocrit 36.5 % (37.0-47.0); Hemoglobin 11.8 g/dL (11.5-15.3); Lymphocytes # 2.8 10^3/uL (0.8-4.8); Lymphocytes % 17.9 %; Mean Corpuscular HGB Conc 32.3 g/dL (30.0-36.0); Mean Corpuscular Hemoglobin 31.4 pg (28.0-34.0); Mean Corpuscular Volume 97.1 fl (81-99); Mean Platelet Volume 10.7 fL (7.4-10.4); Monocytes # 1.6 10^3/uL (0.2-0.9); Neutrophils # 10.77 10^3/uL (1.8-7.7); Neutrophils % 68.6 %; Nucleated Red Blood Cells % 0 %; Platelet Count 227 10^3/cmm (130-400); Red Blood Count 3.76 10^6/uL (4.1-5.3); Red Cell Distribution Width 15.1 % (12.1-15.1); White Blood Count 15.7 10^3/uL (4.0-10.0)
[2022-02-07] MEDS: lamoTRIgine 100 mg Tablet 200 MG PO (05:09)
[2022-02-07 05:32] LABS: Alanine Aminotransferase 32 U/L (0-33); Albumin Level 2.5 g/dL (3.5-5.2); Alkaline Phosphatase 100 U/L (35-105); Aspartate Amino Transferase 23 U/L (0-32); Blood Urea Nitrogen 19 mg/dL (6-20); Calcium 8.1 mg/dL (8.5-10.5); Carbon Dioxide 26 mmol/L (22-29); Chloride 101 mmol/L (98-107); Globulin 2.2 g/dL (1.3-4.6); Glomerular Filtration Rate 104.2 mL/min (90-130); Glucose 115 mg/dL (65-115); Osmolality Calculated 283 mOsm/kg (285-295); Sodium 135 mmol/L (136-145); Total Bilirubin 0.3 mg/dL (0.15-1.2); Total Protein 4.7 g/dL (6.6-8.7)
[2022-02-07] MEDS: budesonide 0.5 mg/2 mL Neb INHALATION ×2 (07:26→20:26)
[2022-02-07] MEDS: predniSONE 20 mg Tablet 40 MG PO (08:30)
[2022-02-07] MEDS: vancomycin 1,500 MG/300 ML PIGGYBACK 150 MG IV ×2 (11:17→20:05)
[2022-02-07] MEDS: levofloxacin-dextrose 5 % 750 MG/150 ML PREMIX 100 MG IV (15:59)
--- NOTE | 2022-02-07 16:29 | PM.PN ---
Subjective Subjective: no new complaints today, reports subjective dyspnea, ambulating with assistance. Vitals/I&O/Wt Last Vital Signs Temp 98.5 F 02/07/22 15:47 Pulse 76 02/07/22 16:02 Resp 18 02/07/22 16:00 BP 147/78 02/07/22 15:47 Pulse Ox 98 02/07/22 16:00 O2 Del Method 02/07/22 15:59 O2 Flow Rate 2 02/07/22 15:59 FiO2 45 02/05/22 15:53 02/07/22 02/07/22 02/07/22 06:59 14:59 22:59 Intake Total 1100 / 1100 Output Total 2875 / 4475 Balance -2875 / -2885 1100 / 1100 Weight last 48 hrs Weight 104.417 kg Weight 105.233 kg Physical Exam Narrative: General: No acute distress, AO x3 HEENT: PERRLA, pupils bilaterally equal and reactive, pallors not present Chest: Normal vesicular breath sounds, no added sounds, equal good air entry bilaterally CVS: S1-S2 regular, no murmurs, no tachycardia, no gallops, no rubs Abdomen: Soft, nontender, no organomegaly, bowel sounds present Neuro: No focal deficits, no facial deformity, AO x3, power 5/5 in all limbs Urinary Catheter Management: Hdez: Cath Placed During This Visit: yes Reason for Continuing Indwelling Catheter: Other Urinary Catheter Date of Insertion: 02/01/22 Urinary Catheter Time of Insertion: 21:30 Data : 02/07/22 04:40 02/07/22 04:40 Micro: Microbiology 02/01/22 12:10 Blood Culture - Final Blood NO GROWTH AFTER 5 DAYS 02/01/22 12:07 Blood Culture - Final Blood NO GROWTH AFTER 5 DAYS A&P Assessment and plan (1) Acute respiratory failure with hypoxia: She is slowly improving. Still subjectively dyspneic with exertion. Continue antibiotics. Continue oxygen support. Wean down as tolerating. Inhaled steroids. Breathing treatments. Mobilize as tolerating. Heavy normal tonia on sputum culture so far. con tinue empiric abx coverage for possible aspiration pneumonia Status: Acute (2) Hypotension: Improved. Steroid changed to Solu-Medrol as above. Status: Acute (3) Chest pain: Resolved. Reported pleuritic chest pain with deep breaths, cough, suspect related to aspiration pneumonitis. No PE noted on CTA. Complete troponin EKG series, so far not suggestive of acute PR. Status: Acute Plan Scoring high on suicide assessment scale, not active suicidal ideation. Please reassess prior to discharge. Has been following up with [facility]. Has been undergoing opioid rehabilitation at [facility], although states does not want to return there. 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
[2022-02-07] MEDS: pantoprazole 40 mg SDV IVP (20:05)
[2022-02-07] MEDS: enoxaparin 40 mg/0.4 mL Syringe SUBCUT (20:05)
[2022-02-07] MEDS: citalopram 20 mg Tablet 40 MG PO (20:06)
[2022-02-07] MEDS: quetiapine 300 mg Tablet PO (20:06)
[2022-02-08] VITALS (10 sets, daily range): BP systolic 113–143; BP diastolic 72–81; PULSE 72–88; RESP 14–18; TEMP 36.6–37.3; O2SAT 90–98
[2022-02-08] MEDS: morphine 4 mg/mL SDV 1 mL 2 MG IVP ×3 (00:27→08:29)
[2022-02-08] MEDS: ipratropium-albuterol 3 mL Neb INHALATION ×2 (03:17→07:15)
[2022-02-08] MEDS: lamoTRIgine 100 mg Tablet 200 MG PO (03:59)
[2022-02-08 05:30] LABS: Basophils % 0.1 %; Eosinophils # 0.1 10^3/uL (0.0-0.8); Hematocrit 38.9 % (37.0-47.0); Hemoglobin 12.9 g/dL (11.5-15.3); Lymphocytes # 2.7 10^3/uL (0.8-4.8); Lymphocytes % 24.5 %; Mean Corpuscular HGB Conc 33.2 g/dL (30.0-36.0); Mean Corpuscular Hemoglobin 31.5 pg (28.0-34.0); Mean Corpuscular Volume 94.9 fl (81-99); Mean Platelet Volume 10.2 fL (7.4-10.4); Monocytes # 1.2 10^3/uL (0.2-0.9); Monocytes % 10.5 %; Neutrophils # 6.51 10^3/uL (1.8-7.7); Neutrophils % 59.5 %; Nucleated Red Blood Cells % 0 %; Platelet Count 219 10^3/cmm (130-400); White Blood Count 10.9 10^3/uL (4.0-10.0)
[2022-02-08 05:52] LABS: Alanine Aminotransferase 55 U/L (0-33); Albumin Level 2.9 g/dL (3.5-5.2); Alkaline Phosphatase 108 U/L (35-105); Blood Urea Nitrogen 19 mg/dL (6-20); Calcium 8.1 mg/dL (8.5-10.5); Carbon Dioxide 26 mmol/L (22-29); Chloride 101 mmol/L (98-107); Globulin 2.1 g/dL (1.3-4.6); Glomerular Filtration Rate 87.2 mL/min (90-130); Glucose 106 mg/dL (65-115); Osmolality Calculated 291 mOsm/kg (285-295); Sodium 139 mmol/L (136-145); Total Bilirubin 0.3 mg/dL (0.15-1.2)
[2022-02-08 05:59] LABS: Anion Gap 16.2 (5-19)
[2022-02-08 06:00] LABS: Aspartate Amino Transferase 18 U/L (0-32); Potassium 4.2 mmol/L (3.5-5.1)
[2022-02-08] MEDS: budesonide 0.5 mg/2 mL Neb INHALATION (07:15)
[2022-02-08] MEDS: predniSONE 20 mg Tablet 40 MG PO (08:27)
[2022-02-08] MEDS: vancomycin 1,500 MG/300 ML PIGGYBACK 150 MG IV (08:29)
--- NOTE | 2022-02-08 08:30 | PC.SOCIAL ---
IMM update IMM updated with patient. Verbalized an understanding. Copy pg 2 provided. Initialled, dated, timed, and placed in chart.
--- NOTE | 2022-02-08 10:30 | P.DS_ITS ---
Discharge Providers Date of Admission: 02/01/22 17:15 Date of Discharge: February 08, 2022 Attending Provider at Admission: Rip Driscoll Attending Provider at Discharge: Jessy Gagnon MD Primary Care Provider: Gordo Feng DO Diagnoses at Discharge Discharge Diagnosis (1) Acute respiratory failure with hypoxia: Status: Acute (2) Hypotension: Status: Acute (3) Chest pain: Status: Acute Reason for Visit Reason for Visit: CHEST PAIN/ SOB Brief History: Taken from H&P. 56-year-old lady was brought in from [facility] where she was undergoing opioid rehabilitation and became acutely hypoxic with acute hypoxic respiratory failure saturations down as low as 45% this morning.? Last night she had episodes of vomiting which were pretty severe.? In ER initially failing support with 15 L nonrebreather, was placed on BiPAP 80% FiO2 with gradual improvement in oxygen saturation.? CT angiogram chest negative for PE, showing bilateral pneumonia Hospital Course Hospital Course Patient was admitted to the hospital and got treatment for acute respiratory failure with hypoxia attributable to likely COPD exacerbation, opiate withdrawal and pneumonia. She received scheduled nebulization with DuoNeb and budesonide, IV steroids transition to oral steroids and antibiotic coverage with levofloxacin and vancomycin. Sputum culture was with heavy growth of normal tonia. She is improved. She is currently saturating 98% on 3 L/min supplemental O2. She is improved she remained hemodynamically stable. On day of discharge noted to have vaginal candidiasis for which we will prescribe her fluconazole. Follow-up as outpatient with her paper colorer Dr. Bray. May additionally benefit from an outpatient sleep study to a certain if she may be a candidate for CPAP at night. Physical Exam Narrative: General: No acute distress, AO x3 HEENT: PERRLA, pupils bilaterally equal and reactive, pallors not present Chest: Normal vesicular breath sounds, no added sounds, equal good air entry bilaterally CVS: S1-S2 regular, no murmurs, no tachycardia, no gallops, no rubs Abdomen: Soft, nontender, no organomegaly, bowel sounds present Neuro: No focal deficits, no facial deformity, AO x3, power 5/5 in all limbs Urinary Catheter Management: Hdez: Cath Placed During This Visit: yes Reason for Continuing Indwelling Catheter: Other Urinary Catheter Date of Insertion: 02/01/22 Urinary Catheter Time of Insertion: 21:30 Discharge Data Studies Completed and Pending Completed Studies During Hospitalization Category Date Time Status CT abdomen pelvis wo con [id number] Stat Cat Scan 02/05/22 13:[address] abdomen pelvis [CT angio chest w abd pel w Cat Scan 02/01/22 11:57 Completed con] Stat CXRP [XR chest 1V portable [id number]] Routine Exams 02/04/22 11:51 Completed XR chest 1V portable [id number] Stat Exams 02/01/22 11:39 Completed Pending at discharge Category Date Time Status Vancomycin Trough Timed Lab 02/08/22 21:00 Ordered Radiology Impressions Chest/Abdomen/Pelvis CT 02/01/22 11:57 IMPRESSION: 1. Interval appearance of severe bilateral central airspace disease with some sparing peripherally most consistent with severe bilateral pneumonia versus atypical pulmonary edema. 2. Slight increased size of [id number] mediastinal and bilateral hilar adenopathy which may be reactive versus neoplastic. Sarcoidosis is not ruled out. 3. No pulmonary embolus or aortic dissection. IMPRESSION: Slight decreased size of 1.1 cm gastrosplenic lymph node. Chest X-Ray 02/04/22 11:51 IMPRESSION: No acute findings. Abdomen/Pelvis CT 02/05/22 13:49 IMPRESSION: Bilateral pleural effusions. Ground-glass opacities at the lung bases are nonspecific and can be seen with pulmonary edema and/or pneumonia. Laboratory Results WBC 10.9 10^3/uL (4.0-10.0) H 02/08/22 05:14 RBC 4.10 10^6/uL (4.1-5.3) 02/08/22 05:14 Hgb 12.9 g/dL (11.5-15.3) 02/08/22 05:14 Hct 38.9 % (37.0-47.0) 02/08/22 05:14 MCV 94.9 fl (81-99) 02/08/22 05:14 MCH 31.5 pg (28.0-34.0) 02/08/22 05:14 MCHC 33.2 g/dL (30.0-36.0) 02/08/22 05:14 RDW 15.0 % (12.1-15.1) 02/08/22 05:14 Plt Count 219 10^3/cmm (130-400) 02/08/22 05:14 MPV 10.2 fL (7.4-10.4) 02/08/22 05:14 Neut % (Auto) 59.5 % 02/08/22 05:14 Lymph % (Auto) 24.5 % 02/08/22 05:14 [place] % (Auto) 10.5 % 02/08/22 05:14 Eos % (Auto) 1.0 % 02/08/22 05:14 Baso % (Auto) 0.1 % 02/08/22 05:14 Neut # (Auto) 6.51 10^3/uL (1.8-7.7) 02/08/22 05:14 Lymph # (Auto) 2.7 10^3/uL (0.8-4.8) 02/08/22 05:14 [place] # (Auto) 1.2 10^3/uL (0.2-0.9) H 02/08/22 05:14 Eos # (Auto) 0.1 10^3/uL (0.0-0.8) 02/08/22 05:14 Baso # (Auto) 0.0 10^3/uL (0.0-0.1) 02/08/22 05:14 Nucleated RBC % (auto) 0 % 02/08/22 05:14 Nucleated RBCs # 0.0 /100WBC 02/08/22 05:14 Specimen Type Arterial 02/01/22 11:33 Sample Site Brachial, left 02/01/22 11:33 ABG pH 7.36 (7.35-7.45) 02/01/22 11:33 ABG pCO2 37.7 mmHg (35-45) 02/01/22 11:33 ABG pO2 49.6 mmHg (80.0-100.0) L 02/01/22 11:33 ABG HCO3 21.5 mmol/L (22-26) L 02/01/22 11:33 ABG O2 Saturation 84.6 02/01/22 11:33 ABG Base Excess -3.5 mmol/L (-2.0-2.0) L 02/01/22 11:33 Juan Test N/a 02/01/22 11:33 A-a O2 Gradient 80.2 mmHg (5-10) H 02/01/22 11:33 Hematocrit 39.5 % (37-47) 02/01/22 11:33 Hgb O2 Saturation 82.1 % (95-100) L 02/01/22 11:33 Carboxyhemoglobin 2.4 %THgb (0.4-20.1) 02/01/22 11:33 Methemoglobin 0.6 % (0.4-1.5) 02/01/22 11:33 Total Hemoglobin 12.9 g/dL (12-16) 02/01/22 11:33 Sodium 134.0 mmol/L (131-143) 02/01/22 11:33 Potassium 3.6 mmol/L (3.5-5.0) 02/01/22 11:33 Glucose 153.0 mg/dL (70-115) H 02/01/22 11:33 Ionized Calcium 1.2 mmol/L (1.1-1.4) 02/01/22 11:33 O2 Delivery Device Nrb 02/01/22 11:33 O2 Liters/Min 15.0 % 02/01/22 11:33 FiO2 100.0 % 02/01/22 11:33 Production Drilling Machine Operator ID Ed 02/01/22 11:33 Sodium 139 mmol/L (136-145) 02/08/22 05:14 Potassium 4.2 mmol/L (3.5-5.1) 02/08/22 05:14 Chloride 101 mmol/L (98-107) 02/08/22 05:14 Carbon Dioxide 26 mmol/L (22-29) 02/08/22 05:14 Anion Gap 16.2 (5-19) 02/08/22 05:14 BUN 19 mg/dL (6-20) 02/08/22 05:14 Creatinine 0.7 mg/dL (0.5-0.9) 02/08/22 05:14 GFR Calculation 87.2 mL/min (90-130) L 02/08/22 05:14 Glucose 106 mg/dL (65-115) 02/08/22 05:14 Calculated Osmolality 291 mOsm/kg (285-295) 02/08/22 05:14 Lactic Acid 1.7 mmol/L (0.5-2.2) 02/01/22 11:40 Calcium 8.1 mg/dL (8.5-10.5) L 02/08/22 05:14 Magnesium 2.0 mg/dL (1.7-2.3) 02/01/22 12:53 Total Bilirubin 0.3 mg/dL (0.15-1.2) 02/08/22 05:14 AST 18 U/L (0-32) 02/08/22 05:14 ALT 55 U/L (0-33) H 02/08/22 05:14 Alkaline Phosphatase 108 U/L (35-105) H 02/08/22 05:14 Creatine Kinase 149 U/L (26-192) 02/01/22 12:53 Troponin T Baseline 16 ng/L (0-10) H 02/01/22 11:40 Troponin T 120 Minute 17.94 ng/L (0-10) H 02/01/22 13:50 Delta Troponin T 1.94 ABS# (0-10) 02/01/22 13:50 Troponin T Hi Sens 6Hr 14.03 ng/L (0-10) H 02/01/22 17:49 Troponin T Hi Sens 6Hr Delta -1.97 ng/L (0-12) L 02/01/22 17:49 NT-Pro-B Natriuret Pep 2617 pg/mL (0-125) H 02/01/22 12:53 Total Protein 5.0 g/dL (6.6-8.7) L 02/08/22 05:14 Albumin 2.9 g/dL (3.5-5.2) L 02/08/22 05:14 Globulin 2.1 g/dL (1.3-4.6) 02/08/22 05:14 Lipase 7 U/L (13-60) L 02/01/22 12:53 Urine Color Yellow (Yellow) 02/01/22 21:37 Urine Appearance Clear (CLEAR) 02/01/22 21:37 Urine pH 5 (5-7) 02/01/22 21:37 Ur Specific [place] 1.005 (1.005-1.030) 02/01/22 21:37 Urine Protein Trace (Negative) 02/01/22 21:37 Urine Glucose (UA) Norm (Normal) 02/01/22 21:37 Urine Ketones Negative (Negative) 02/01/22 21:37 Urine Blood 2+ (Negative) H 02/01/22 21:37 Urine Nitrate Negative (Negative) 02/01/22 21:37 Urine Bilirubin Neg (Negative) 02/01/22 21:37 Urine Urobilinogen Norm mg/dL (Negative) 02/01/22 21:37 Ur Leukocyte Esterase Trace (Negative) H 02/01/22 21:37 Urine RBC 5-10 /hpf (0-2) H 02/01/22 21:37 Urine WBC 5-10 /hpf (0-5) H 02/01/22 21:37 Ur Squamous Epith Cells 0-4 /hpf (0-5) H 02/01/22 21:37 Amorphous Sediment Not Reportable 02/01/22 21:37 Urine Bacteria Trace /hpf (NONE) 02/01/22 21:37 Vancomycin Trough 30.2 ug/mL (10-15) H* 02/06/22 19:22 Random Vancomycin 16.0 ug/mL (20.0-40.0) L 02/07/22 04:40 Serum Ketones Negative (Negative) 02/01/22 11:40 Coronavirus 229E (PCR) Not detected (NOT DETECT) 02/01/22 13:25 SARS-CoV-2 (PCR) Not detected (NOT DETECT) 02/01/22 13:25 Vitals Last Vital Signs Temp 98.3 F 02/08/22 07:46 Pulse 84 02/08/22 07:46 Resp 16 02/08/22 08:29 BP 133/80 02/08/22 07:46 Pulse Ox 98 02/08/22 08:29 O2 Del Method 02/08/22 07:46 O2 Flow Rate 1 02/08/22 07:19 FiO2 45 02/05/22 15:53 Discharge Plan Discharge Patient Disposition: Home Condition: Stable Prescriptions: New fluconazole 100 mg tablet 100 mg PO DAILY Qty: 7 0RF nystatin 100,000 unit/gram powder 1 applic topical BID Qty: 30 0RF Rx Instructions: apply locally to B/L groin folds prednisone 20 mg Tablet 40 mg PO DAILY 3 Days Qty: 6 0RF Continued fluticasone propionate 50 mcg/actuation spray,suspension 1 spray intranasal BID PRN (Reason: Allergy Symptoms) Qty: 16 1RF albuterol sulfate 90 mcg/actuation HFA aerosol inhaler 2 puff inhalation Q6H PRN (Reason: shortness of breath or wheezing) acetaminophen [Tylenol Ex Str Rapid Release] 500 mg Tablet 1,000 mg PO Q6H PRN (Reason: Pain) famotidine 20 mg tablet 20 mg PO DAILY@06 ondansetron 4 mg tablet,disintegrating 4 mg PO Q8H PRN (Reason: nausea and vomiting) Qty: 15 0RF citalopram 20 mg tablet 40 mg PO BEDTIME@21 clonidine HCl 0.1 mg tablet 0.1 mg PO BID PRN (Reason: blood pressure/withdrawal) buprenorphine-naloxone 2-0.5 mg Tablet, Sublingual 0.5 tab SUBLINGUAL DAILY@06 lamotrigine 200 mg tablet 200 mg PO DAILY@06 quetiapine [Seroquel] 300 mg tablet 300 mg PO BEDTIME Ingrezza 80 mg capsule 80 mg PO DAILY@06 Trelegy Ellipta 200-62.5-25 mcg blister with device 1 ea inhalation DAILY@06 Rx Instructions: STOP BREO AND IPRATROPIUM pantoprazole 40 mg tablet,delayed release (DR/EC) 40 mg PO DAILY@06 dicyclomine 10 mg capsule 10 mg PO TID Qty: 60 0RF Discharge Orders: Discharge Order (Routine); Ordered 02/08/22 Ordered By: Jessy Gagnon Other Ambulatory Orders: DME: Oxygen (Order) Location: None Selected Ordered By: Jessy Gagnon Referrals: [facility] [Other] (Call this number to get [facility] Services setup. They will ask questions & based off your answers you are given points. You have to have a certain number of points to qualify for services. ) Seth [Outside] Gordo Feng DO [Primary Care Provider] - Discharge Diet: Usual diet Discharge Activity: Resume usual activity Patient Instructions: Opioid Safety Discharge Attestations Time Spent in Discharge Care*: greater than 30 min Status at Discharge: Cognitive status at discharge: cognitively intact , Behavioral status at discharge: cooperative , Quality Metrics Clinical Quality Measures [ No reported AMI, CVA or VTE this stay] Coding Level of Care Code Acute Chg FW DC note Diagnoses Acute respiratory failure with hypoxia J96.01 Hypotension I95.9 Chest pain R07.9
== END 2022-02-08 12:28 | disposition home or self-care (01) | DRG 177 ==
LOC: ER 15:19 → ICU 17:40 → MEDSURG 02-04 18:55
PROVIDERS: Admitting Provider Internal Medicine; Emergency Provider Family Medicine; PCP Electrodiagnostic Medicine; Visit Provider Student in an Organized Health Care Education/Training Program
DX: J69.0 Pneumonitis due to inhalation of food and vomit (principal); J96.01 Acute respiratory failure with hypoxia; J44.1 Chronic obstructive pulmonary disease with (acute) exacerbation; E27.40 Unspecified adrenocortical insufficiency; F11.23 Opioid dependence with withdrawal; R59.0 Localized enlarged lymph nodes; D86.9 Sarcoidosis, unspecified; F60.3 Borderline personality disorder; G89.29 Other chronic pain; M54.9 Dorsalgia, unspecified; K29.50 Unspecified chronic gastritis without bleeding; K21.9 Gastro-esophageal reflux disease without esophagitis; N31.9 Neuromuscular dysfunction of bladder, unspecified; F25.0 Schizoaffective disorder, bipolar type; F17.210 Nicotine dependence, cigarettes, uncomplicated; I95.9 Hypotension, unspecified; Z79.51 Long term (current) use of inhaled steroids; N30.80 Other cystitis without hematuria
CPT/HCPCS: 36415; 36600; 51702; 71045; 71275; 74176; 74177; 80048; 80051; 80053; 80202; 81001; 82009; 82330; 82550; 82805; 83605; 83690; 83735; 83880; 84484; 85025; 87040; 87070; 87205; 87635; 93005; 94640; 94660; 94664; 94760; 94762; 96365; 96367; 96372; 96375; 97110; 97161; 97530; 99291; C9113; J1650; J1720; J1956; J2270; J2405; J2550; J2920; J3370; J3490; J7040; J7050; J7512; J7626; Q9967

== ENCOUNTER 2022-02-18 14:06 | Emergency (ER) | payer MEDICARE, MEDICAID, SELFPAY ==
[2022-02-18 14:07] VITALS: BP 135/67; PULSE 88; RESP 18; TEMP 36.6; O2SAT 96; BMI 31.6
--- NOTE | 2022-02-18 14:26 | W.ED.ABDPA2 ---
HPI - Abdominal Pain General: Chief Complaint: Abdominal Pain Stated Complaint: ABDOMINAL PAIN/ N/V Time Seen by Provider: 02/18/22 14:14 Source: patient Mode of arrival: ambulatory Limitations: no limitations History of Present Illness: 56-year-old female presents emergency room complaining abdominal pain. She is currently being treated for bacterial vaginosis. She denies any dysuria urgency or frequency. No hematochezia melena hematemesis Carbapenem's. Patient is frequently in the emergency room with complaints of abdominal pain the majority of times which there is no significant finding. She did recently have acute hypercapnic respiratory failure which was a much different presentation than she usually has she was hospitalized for time discharge home and seems to have been doing well since then until now. MD elicited complaint: abdominal pain Pertinent past history: none Onset (ago): hour(s) Pain Consistency: constant Location: Epigastric Quality: cramping Migration to: no migration Associated Symptoms: Reports bloating, GI cramping, nausea and poor appetite; Denies anorexia, belching, change in bowel habits, change in stool character, chills, coffee ground emesis, constipation, diarrhea, dyspepsia, dysuria, excessive flatus, fever(s), heartburn, hematochezia, hematuria, hematemesis, fecal incontinence, loose stools, melena, syncope and vomiting Related Data: Date of Last Menstrual Period: 06/19/95 Review of Systems Const: Denies: fever(s) or chills ENMT: Denies: throat pain, ear or mastoid pain, nasal discharge or nasal congestion Card: Denies: syncope Resp: Denies: dyspnea, productive cough or non-productive cough GI: Reports: nausea, bloating and GI cramping; Denies: vomiting, hematemesis, coffee ground emesis, heartburn, diarrhea, constipation, belching, excessive flatus, fecal incontinence, change in bowel habits, change in stool character, hematochezia or melena : Denies: flank pain, difficulty voiding, dysuria, urinary frequency or hematuria Skin/Breast: Denies: rash or pruritus PFS ED PFSH: Medical History Bladder stone Borderline personality disorder Chronic anxiety Chronic back pain greater than 3 months duration Chronic gastritis without bleeding COPD (chronic obstructive pulmonary disease) Cystitis cystica Dysphagia Esophageal stricture Foreign body in bladder GERD without esophagitis Neurogenic bladder Psychiatric care Restrictive lung disease Schizoaffective disorder, bipolar type Tardive dyskinesia Urgency incontinence Surgical History H/O bladder repair surgery MESH REPAIR H/O colonoscopy with polypectomy H/O esophagogastroduodenoscopy (09/21/20) H/O: hysterectomy History of appendectomy History of breast biopsy History of foot surgery sx in 2009. Screws placed by Dr. Don. History of ureter stent Hx of cholecystectomy S/P bronchoscopy with biopsy Family History Mother No problems noted. Father No problems noted. Other Asthma Cancer Diabetes Heart disease Social History Smoking and tobacco status: current every day smoker (0.5 ppd, started at age 27) cigarettes Packs smoked per day: 1 Years cigarettes smoked: 20 [ Other cigarette details: Hx of 1 PPD x 20 Years, started at age 27] Quit status (tobacco): considering quitting Second hand smoke exposure: Yes Smoking risk assessment/counseling performed?: No Alcohol intake: never Counseling given: No Counseling given: No Lives independently: Yes Household members: spouse Marital status: Number of children: 3 Current occupational status: disabled History of recent travel: No Current gender identity: Female Female Reproductive History: Date of last menstrual period: 06/19/95 Physical Exam Const: COMMON NORMALS: no acute distress GENERAL APPEARANCE: cooperative and comfortable ORIENTATION/CONSCIOUSNESS: Yes awake, Yes oriented to person, Yes oriented to place and Yes oriented to time HENMT: COMMON NORMALS: normocephalic, atraumatic and hearing grossly normal bilaterally HEAD & SCALP: normocephalic and atraumatic Resp: COMMON NORMALS: normal respiratory effort, No retractions, No use of accessory muscles and clear to auscultation bilaterally AUSCULTATION: clear to auscultation bilaterally Cardio: COMMON NORMALS: regular rate, regular rhythm and No murmurs present (Cardio) RATE: regular rate RHYTHM: regular rhythm GI: COMMON NORMALS: Soft to palpation and No hepatosplenomegaly present AUSCULTATION: Yes normoactive bowel sounds PALPATION: Yes Soft to palpation, No Tenderness to palpation present (GI), No Guarding due to palpation present (GI) and Yes No hepatosplenomegaly present Extremity: COMMON NORMALS: normal to inspection, capillary refill normal, no clubbing, cyanosis or edema, no calf tenderness and no pedal edema Neuro: SENSORIUM/ORIENTATION: Yes oriented to person, Yes oriented to place and Yes oriented to time Skin: COMMON NORMALS: no rashes or lesions noted GENERAL SKIN EXAM: no rashes or lesions noted Course Vital Signs: Vital signs: Vital Signs Temperature 97.8 F 02/18/22 14:07 Pulse Rate 74 02/18/22 15:44 Respiratory Rate 14 02/18/22 15:44 Blood Pressure 119/73 02/18/22 15:44 Pulse Oximetry 95 02/18/22 15:44 Oxygen Delivery Me thod 02/18/22 15:44 MDM - Abdominal Pain Medical Decision Making Labs and exam unremarkable. Think is coming from metronidazole. Have her increase her Protonix to 40 twice daily take food with some metronidazole and follow-up as needed Lab Data : 02/18/22 14:45 02/18/22 14:45 Labs/Radiology: Laboratory Results WBC 10.3 10^3/uL (4.0-10.0) H 02/18/22 14:45 RBC 4.26 10^6/uL (4.1-5.3) 02/18/22 14:45 Hgb 13.4 g/dL (11.5-15.3) 02/18/22 14:45 Hct 39.9 % (37.0-47.0) 02/18/22 14:45 MCV 93.7 fl (81-99) 02/18/22 14:45 MCH 31.5 pg (28.0-34.0) 02/18/22 14:45 MCHC 33.6 g/dL (30.0-36.0) 02/18/22 14:45 RDW 14.6 % (12.1-15.1) 02/18/22 14:45 Plt Count 254 10^3/cmm (130-400) 02/18/22 14:45 MPV 10.1 fL (7.4-10.4) 02/18/22 14:45 Neut % (Auto) 67.3 % 02/18/22 14:45 Lymph % (Auto) 19.3 % 02/18/22 14:45 [place] % (Auto) 10.3 % 02/18/22 14:45 Eos % (Auto) 2.0 % 02/18/22 14:45 Baso % (Auto) 0.7 % 02/18/22 14:45 Neut # (Auto) 6.89 10^3/uL (1.8-7.7) 02/18/22 14:45 Lymph # (Auto) 2.0 10^3/uL (0.8-4.8) 02/18/22 14:45 [place] # (Auto) 1.1 10^3/uL (0.2-0.9) H 02/18/22 14:45 Eos # (Auto) 0.2 10^3/uL (0.0-0.8) 02/18/22 14:45 Baso # (Auto) 0.1 10^3/uL (0.0-0.1) 02/18/22 14:45 Nucleated RBC % (auto) 0 % 02/18/22 14:45 Nucleated RBCs # 0.0 /100WBC 02/18/22 14:45 Sodium 139 mmol/L (136-145) 02/18/22 14:45 Potassium 3.8 mmol/L (3.5-5.1) 02/18/22 14:45 Chloride 106 mmol/L (98-107) 02/18/22 14:45 Carbon Dioxide 21 mmol/L (22-29) L 02/18/22 14:45 Anion Gap 15.8 (5-19) 02/18/22 14:45 BUN 11 mg/dL (6-20) 02/18/22 14:45 Creatinine 0.8 mg/dL (0.5-0.9) 02/18/22 14:45 GFR Calculation 74.7 mL/min (90-130) L 02/18/22 14:45 Glucose 96 mg/dL (65-115) 02/18/22 14:45 Calculated Osmolality 287 mOsm/kg (285-295) 02/18/22 14:45 Calcium 9.1 mg/dL (8.5-10.5) 02/18/22 14:45 Total Bilirubin 0.3 mg/dL (0.15-1.2) 02/18/22 14:45 AST 14 U/L (0-32) 02/18/22 14:45 ALT 14 U/L (0-33) 02/18/22 14:45 Alkaline Phosphatase 116 U/L (35-105) H 02/18/22 14:45 Total Protein 6.8 g/dL (6.6-8.7) 02/18/22 14:45 Albumin 3.8 g/dL (3.5-5.2) 02/18/22 14:45 Globulin 3.0 g/dL (1.3-4.6) 02/18/22 14:45 Urine Color Yellow (Yellow) 02/18/22 14:45 Urine Appearance Clear (CLEAR) 02/18/22 14:45 Urine pH 6 (5-7) 02/18/22 14:45 Ur Specific [place] 1.015 (1.005-1.030) 02/18/22 14:45 Urine Protein Neg (Negative) 02/18/22 14:45 Urine Glucose (UA) Norm (Normal) 02/18/22 14:45 Urine Ketones Negative (Negative) 02/18/22 14:45 Urine Blood Trace (Negative) H 02/18/22 14:45 Urine Nitrate Negative (Negative) 02/18/22 14:45 Urine Bilirubin Neg (Negative) 02/18/22 14:45 Urine Urobilinogen Norm mg/dL (Negative) 02/18/22 14:45 Ur Leukocyte Esterase 1+ (Negative) H 02/18/22 14:45 Urine RBC 0-4 /hpf (0-2) H 02/18/22 14:45 Urine WBC 0-4 /hpf (0-5) H 02/18/22 14:45 Ur Squamous Epith Cells 5-10 /hpf (0-5) H 02/18/22 14:45 Amorphous Sediment Not Reportable 02/18/22 14:45 Urine Bacteria 1+ /hpf (NONE) H 02/18/22 14:45 Discharge Plan Discharge Patient Disposition: Home Clinical Impression: Chronic abdominal pain, Medication side effect Condition: Stable Prescriptions: No Action fluticasone propionate 50 mcg/actuation spray,suspension 1 spray intranasal BID PRN (Reason: Allergy Symptoms) Qty: 16 1RF lamotrigine 200 mg tablet 200 mg PO DAILY@06 Qty: 30 1RF Ingrezza 80 mg capsule 80 mg PO DAILY@06 Qty: 30 2RF albuterol sulfate 90 mcg/actuation HFA aerosol inhaler 2 puff inhalation Q6H PRN (Reason: shortness of breath or wheezing) acetaminophen 500 mg Tablet 1,000 mg PO Q6H PRN (Reason: Pain) famotidine 20 mg tablet 20 mg PO DAILY@06 ondansetron 4 mg tablet,disintegrating 4 mg PO Q8H PRN (Reason: nausea and vomiting) Qty: 15 0RF citalopram 20 mg tablet 40 mg PO BEDTIME@21 clonidine HCl 0.1 mg tablet 0.1 mg PO BID PRN (Reason: blood pressure/withdrawal) buprenorphine-naloxone 2-0.5 mg Tablet, Sublingual 0.5 tab SUBLINGUAL DAILY@06 quetiapine [Seroquel] 300 mg tablet 300 mg PO BEDTIME Trelegy Ellipta 200-62.5-25 mcg blister with device 1 ea inhalation DAILY@06 Rx Instructions: STOP BREO AND IPRATROPIUM fluconazole 100 mg tablet 100 mg PO DAILY Qty: 7 0RF nystatin 100,000 unit/gram powder 1 applic topical BID Qty: 30 0RF Rx Instructions: apply locally to B/L groin folds pantoprazole 40 mg tablet,delayed release (DR/EC) 40 mg PO DAILY@06 dicyclomine 10 mg capsule 10 mg PO TID Qty: 60 0RF Discharge Orders: Discharge ED (Routine); Ordered 02/18/22 Ordered By: Bryant Whitley Referrals: Gordo Feng DO [Primary Care Provider] - Patient Instructions: Abdominal Pain (ED), Opioid Safety Activity Restrictions/Additional Instructions: Continue current medications increase pantoprazole to twice daily complete course of metronidazole Coding Level of Care Code ED Cashier Courtesy Booth for Chg Fwd Exam Detailed
[2022-02-18 14:53] LABS: Basophils # 0.1 10^3/uL (0.0-0.1); Basophils % 0.7 %; Eosinophils # 0.2 10^3/uL (0.0-0.8); Hematocrit 39.9 % (37.0-47.0); Hemoglobin 13.4 g/dL (11.5-15.3); Lymphocytes % 19.3 %; Mean Corpuscular HGB Conc 33.6 g/dL (30.0-36.0); Mean Corpuscular Hemoglobin 31.5 pg (28.0-34.0); Mean Corpuscular Volume 93.7 fl (81-99); Mean Platelet Volume 10.1 fL (7.4-10.4); Monocytes # 1.1 10^3/uL (0.2-0.9); Monocytes % 10.3 %; Neutrophils # 6.89 10^3/uL (1.8-7.7); Neutrophils % 67.3 %; Nucleated Red Blood Cells % 0 %; Platelet Count 254 10^3/cmm (130-400); Red Blood Count 4.26 10^6/uL (4.1-5.3); Red Cell Distribution Width 14.6 % (12.1-15.1); White Blood Count 10.3 10^3/uL (4.0-10.0)
[2022-02-18 15:05] LABS: Bilirubin Urine Neg (Negative); Blood Urine Trace (Negative); Glucose Urine UA Norm (Normal); Ketones Urine Negative (Negative); Nitrate Urine Negative (Negative); Protein Urine Neg (Negative); Specific Gravity, Urine 1.015 (1.005-1.030); Urine Appearance Clear (CLEAR); Urine Color Yellow (Yellow); Urobilinogen Urine Norm (Negative); pH Urine 6 (5-7)
[2022-02-18 15:06] LABS: Add Urine Culture? No; Add Urine Microscopic? YES; Bacteria Urine 1+ /hpf; Leukocyte Esterase Urine 1+ (Negative); RBC Urine 0-4 /hpf (0-2); WBC Urine 0-4 /hpf (0-5)
[2022-02-18 15:15] LABS: Alanine Aminotransferase 14 U/L (0-33); Albumin Level 3.8 g/dL (3.5-5.2); Alkaline Phosphatase 116 U/L (35-105); Aspartate Amino Transferase 14 U/L (0-32); Blood Urea Nitrogen 11 mg/dL (6-20); Calcium 9.1 mg/dL (8.5-10.5); Carbon Dioxide 21 mmol/L (22-29); Chloride 106 mmol/L (98-107); Glomerular Filtration Rate 74.7 mL/min (90-130); Glucose 96 mg/dL (65-115); Osmolality Calculated 287 mOsm/kg (285-295); Sodium 139 mmol/L (136-145); Total Bilirubin 0.3 mg/dL (0.15-1.2); Total Protein 6.8 g/dL (6.6-8.7)
[2022-02-18 15:19] LABS: Anion Gap 15.8 (5-19); Potassium 3.8 mmol/L (3.5-5.1)
[2022-02-18 15:44] VITALS: BP 119/73; PULSE 74; RESP 14; O2SAT 95
== END 2022-02-18 15:46 | disposition home or self-care (01) ==
PROVIDERS: Emergency Provider Family Medicine; PCP Electrodiagnostic Medicine
DX: G89.29 Other chronic pain (principal); R10.9 Unspecified abdominal pain; T50.905A Adverse effect of unspecified drugs, medicaments and biological substances, initial encounter; J44.9 Chronic obstructive pulmonary disease, unspecified; F17.210 Nicotine dependence, cigarettes, uncomplicated
CPT/HCPCS: 80053; 81001; 85025; 99283

== ENCOUNTER 2022-02-20 19:03 | Emergency (ER) | payer MEDICARE, MEDICAID, SELFPAY ==
[2022-02-20 19:05] VITALS: BP 133/80; PULSE 83; RESP 18; TEMP 36.9; O2SAT 94; BMI 31.6
--- NOTE | 2022-02-20 19:16 | XRR_ITS ---
PROCEDURE INFORMATION: Exam: XR Abdomen Exam date and time: 02/20/2022 7:38 PM Age: 56 years old Clinical indication: Abdominal pain; Additional info: Abd pain TECHNIQUE: Imaging protocol: Radiologic exam of the abdomen. Views: Frontal supine view of the abdomen. 1 View. COMPARISON: CT abdomen pelvis con [id number] 02/05/2022 2:47 PM FINDINGS: Gastrointestinal tract: Nonobstructive intestinal gas pattern demonstrated. Bones/joints: Degenerative spine changes are noted. Soft tissues: Surgical mesh seen in the left inguinal area. XR/XR KUB portable [id number] IMPRESSION: No acute abnormality demonstrated.
--- NOTE | 2022-02-20 19:20 | W.ED.ABDPA2 ---
HPI - Abdominal Pain General: Chief Complaint: Abdominal Pain Stated Complaint: ABD PAIN Time Seen by Provider: 02/20/22 19:07 Source: patient History of Present Illness: 56-year-old female well-known to the ER for complaints of chronic abdominal pain. She presents with abdominal pain. No vomiting. No fever. She was seen for this few days ago. Work-up was negative at that time from her serum MD elicited complaint: abdominal pain Pertinent past history: constipation and other (Chronic abdominal pain) Location: Diffuse Quality: cramping and stabbing Associated Symptoms: Reports nausea; Denies belching, bloating, diarrhea, fever(s), hematochezia and vomiting Related Data: Date of Last Menstrual Period: 06/19/95 Review of Systems Const: Denies: fever(s) Eyes: Denies: change in vision Card: Denies: chest pain or palpitations Resp: Denies: dyspnea, productive cough, non-productive cough or wheezing GI: Reports: nausea; Denies: vomiting, diarrhea, bloating, belching or hematochezia : Denies: difficulty voiding Skin/Breast: Denies: rash Neuro: Denies: headache(s), weakness in extremities, dizziness or confusion PFSH ED PFSH: Medical History Bladder stone Borderline personality disorder Chronic anxiety Chronic back pain greater than 3 months duration Chronic gastritis without bleeding COPD (chronic obstructive pulmonary disease) Cystitis cystica Dysphagia Esophageal stricture Foreign body in bladder GERD without esophagitis Neurogenic bladder Psychiatric care Restrictive lung disease Schizoaffective disorder, bipolar type Tardive dyskinesia Urgency incontinence Surgical History H/O bladder repair surgery MESH REPAIR H/O colonoscopy with polypectomy H/O esophagogastroduodenoscopy (09/21/20) H/O: hysterectomy History of appendectomy History of breast biopsy History of foot surgery sx in 2009. Screws placed by Dr. Don. History of ureter stent Hx of cholecystectomy S/P bronchoscopy with biopsy Family History Mother No problems noted. Father No problems noted. Other Asthma Cancer Diabetes Heart disease Social History Smoking and tobacco status: current every day smoker (0.5 ppd, started at age 27) cigarettes Packs smoked per day: 1 Years cigarettes smoked: 20 [ Other cigarette details: Hx of 1 PPD x 20 Years, started at age 27] Quit status (tobacco): considering quitting Second hand smoke exposure: Yes Smoking risk assessment/counseling performed?: No Alcohol intake: never Counseling given: No Counseling given: No Lives independently: Yes Household members: spouse Marital status: Number of children: 3 Current occupational status: disabled History of recent travel: No Current gender identity: Female Female Reproductive History: Date of last menstrual period: 06/19/95 Physical Exam Const: COMMON NORMALS: no acute distress GENERAL APPEARANCE: cooperative; not ill appearing and not frail appearing HENMT: COMMON NORMALS: normocephalic, atraumatic and Normal external nose present HEAD & SCALP: normocephalic and atraumatic FACE & SINUS: normal facial exam and face symmetric NOSE: Normal external nose present Eye: COMMON NORMALS: Equal, round and reactive pupils present and EOMs intact bilaterally PUPIL: Yes Equal, round and reactive pupils present Neck/C-Spine: GENERAL: Yes trachea midline Chest: CHEST: Yes Symmetrical chest wall rise Resp: COMMON NORMALS: normal respiratory effort, No retractions, No use of accessory muscles and clear to auscultation bilaterally AUSCULTATION: clear to auscultation bilaterally Cardio: COMMON NORMALS: regular rate and regular rhythm RATE: regular rate RHYTHM: regular rhythm GI: COMMON NORMALS: Normal to inspection, nondistended, normoactive bowel sounds present PALPATION: Yes Tenderness to palpation present (GI) (diffuse) Extremity: COMMON NORMALS: no pedal edema Neuro: JEANINE COMA SCALE: document GCS findings Mcgregor coma scale eye opening: Spontaneous Jeanien coma scale verbal response: Orientated Jeanine coma scale motor response: Obey commands Jeanine coma scale total score: 15 SENSORY EXAM: Yes extremities (intact) Psych: COMMON NORMALS: speech normal SPEECH: Yes normal speech Skin: COMMON NORMALS: no rashes or lesions noted GENERAL SKIN EXAM: no rashes or lesions noted Course Vital Signs: Vital signs: Vital Signs Temperature 98.4 F 02/20/22 19:05 Pulse Rate 80 02/20/22 20:16 Respiratory Rate 18 02/20/22 20:16 Blood Pressure 128/68 02/20/22 20:16 Pulse Oximetry 93 02/20/22 20:16 Oxygen Delivery Me thod 02/20/22 20:16 MDM - Abdominal Pain Medical Decision Making Latesha is improved after fluid, pain medication, and antiemetic. Her white blood cell count is 11 without left shift. Her BMP is normal. Liver enzymes are not remarkable. Urinalysis is contaminated but does not show significant signs of urinary tract infection. KUB is normal. Lab Data : 02/20/22 19:15 02/20/22 19:15 Labs/Radiology: Radiology Impressions KUB X-Ray 02/20/22 19:16 IMPRESSION: No acute abnormality demonstrated. Laboratory Results WBC 11.6 10^3/uL (4.0-10.0) H 02/20/22 19:15 RBC 4.10 10^6/uL (4.1-5.3) 02/20/22 19:15 Hgb 12.9 g/dL (11.5-15.3) 02/20/22 19:15 Hct 39.4 % (37.0-47.0) 02/20/22 19:15 MCV 96.1 fl (81-99) 02/20/22 19:15 MCH 31.5 pg (28.0-34.0) 02/20/22 19:15 MCHC 32.7 g/dL (30.0-36.0) 02/20/22 19:15 RDW 14.6 % (12.1-15.1) 02/20/22 19:15 Plt Count 222 10^3/cmm (130-400) 02/20/22 19:15 MPV 10.2 fL (7.4-10.4) 02/20/22 19:15 Neut % (Auto) 71.9 % 02/20/22 19:15 Lymph % (Auto) 18.0 % 02/20/22 19:15 [place] % (Auto) 7.0 % 02/20/22 19:15 Eos % (Auto) 2.2 % 02/20/22 19:15 Baso % (Auto) 0.6 % 02/20/22 19:15 Neut # (Auto) 8.32 10^3/uL (1.8-7.7) H 02/20/22 19:15 Lymph # (Auto) 2.1 10^3/uL (0.8-4.8) 02/20/22 19:15 [place] # (Auto) 0.8 10^3/uL (0.2-0.9) 02/20/22 19:15 Eos # (Auto) 0.3 10^3/uL (0.0-0.8) 02/20/22 19:15 Baso # (Auto) 0.1 10^3/uL (0.0-0.1) 02/20/22 19:15 Nucleated RBC % (auto) 0 % 02/20/22 19:15 Nucleated RBCs # 0.0 /100WBC 02/20/22 19:15 Sodium 141 mmol/L (136-145) 02/20/22 19:15 Potassium 3.7 mmol/L (3.5-5.1) 02/20/22 19:15 Chloride 109 mmol/L (98-107) H 02/20/22 19:15 Carbon Dioxide 23 mmol/L (22-29) 02/20/22 19:15 Anion Gap 12.7 (5-19) 02/20/22 19:15 BUN 11 mg/dL (6-20) 02/20/22 19:15 Creatinine 0.9 mg/dL (0.5-0.9) 02/20/22 19:15 GFR Calculation 65.2 mL/min (90-130) L 02/20/22 19:15 Glucose 89 mg/dL (65-115) 02/20/22 19:15 Calculated Osmolality 291 mOsm/kg (285-295) 02/20/22 19:15 Calcium 8.8 mg/dL (8.5-10.5) 02/20/22 19:15 Total Bilirubin 0.2 mg/dL (0.15-1.2) 02/20/22 19:15 AST 9 U/L (0-32) 02/20/22 19:15 ALT 11 U/L (0-33) 02/20/22 19:15 Alkaline Phosphatase 111 U/L (35-105) H 02/20/22 19:15 Total Protein 6.2 g/dL (6.6-8.7) L 02/20/22 19:15 Albumin 3.6 g/dL (3.5-5.2) 02/20/22 19:15 Globulin 2.6 g/dL (1.3-4.6) 02/20/22 19:15 Lipase 36 U/L (13-60) 02/20/22 19:15 Urine Color Yellow (Yellow) 02/20/22 19:20 Urine Appearance Clear (CLEAR) 02/20/22 19:20 Urine pH 6 (5-7) 02/20/22 19:20 Ur Specific [place] 1.020 (1.005-1.030) 02/20/22 19:20 Urine Protein Neg (Negative) 02/20/22 19:20 Urine Glucose (UA) Norm (Normal) 02/20/22 19:20 Urine Ketones 1+ (Negative) H 02/20/22 19:20 Urine Blood Neg (Negative) 02/20/22 19:20 Urine Nitrate Negative (Negative) 02/20/22 19:20 Urine Bilirubin Neg (Negative) 02/20/22 19:20 Urine Urobilinogen 1 mg/dL (Negative) H 02/20/22 19:20 Ur Leukocyte Esterase 1+ (Negative) H 02/20/22 19:20 Urine RBC 0-4 /hpf (0-2) H 02/20/22 19:20 Urine WBC 5-10 /hpf (0-5) H 02/20/22 19:20 Ur Squamous Epith Cells 15-25 /hpf (0-5) H 02/20/22 19:20 Amorphous Sediment Not Reportable 02/20/22 19:20 Urine Bacteria Trace /hpf (NONE) 02/20/22 19:20 Urine Mucus 2+ /hpf 02/20/22 19:20 Discharge Plan Discharge Patient Disposition: Home Clinical Impression: Abdominal pain Condition: Stable Prescriptions: No Action fluticasone propionate 50 mcg/actuation spray,suspension 1 spray intranasal BID PRN (Reason: Allergy Symptoms) Qty: 16 1RF lamotrigine 200 mg tablet 200 mg PO DAILY@06 Qty: 30 1RF Ingrezza 80 mg capsule 80 mg PO DAILY@06 Qty: 30 2RF albuterol sulfate 90 mcg/actuation HFA aerosol inhaler 2 puff inhalation Q6H PRN (Reason: shortness of breath or wheezing) acetaminophen 500 mg Tablet 1,000 mg PO Q6H PRN (Reason: Pain) famotidine 20 mg tablet 20 mg PO DAILY@06 ondansetron 4 mg tablet,disintegrating 4 mg PO Q8H PRN (Reason: nausea and vomiting) Qty: 15 0RF citalopram 20 mg tablet 40 mg PO BEDTIME@21 clonidine HCl 0.1 mg tablet 0.1 mg PO BID PRN (Reason: blood pressure/withdrawal) buprenorphine-naloxone 2-0.5 mg Tablet, Sublingual 0.5 tab SUBLINGUAL DAILY@06 quetiapine [Seroquel] 300 mg tablet 300 mg PO BEDTIME Trelegy Ellipta 200-62.5-25 mcg blister with device 1 ea inhalation DAILY@06 Rx Instructions: STOP BREO AND IPRATROPIUM fluconazole 100 mg tablet 100 mg PO DAILY Qty: 7 0RF nystatin 100,000 unit/gram powder 1 applic topical BID Qty: 30 0RF Rx Instructions: apply locally to B/L groin folds pantoprazole 40 mg tablet,delayed release (DR/EC) 40 mg PO DAILY@06 dicyclomine 10 mg capsule 10 mg PO TID Qty: 60 0RF Discharge Orders: Discharge ED (Routine); Ordered 02/20/22 Ordered By: Chivo Deleon Referrals: Gordo Feng DO [Primary Care Provider] - 4-7 days Patient Instructions: Abdominal Pain (ED), Opioid Safety Activity Restrictions/Additional Instructions: Return for fever, vomiting liquids or medications, other concerning symptoms. Coding Level of Care Code ED Movie Theater Manager for Shellie Fwd Exam Comprehensive
[2022-02-20] MEDS: sodium chloride 0.9% 500 ML IV (19:23)
[2022-02-20 19:24] VITALS: RESP 18
[2022-02-20] MEDS: morphine 4 mg/mL SDV 1 mL IVP ×2 (19:24→19:59)
[2022-02-20] MEDS: ondansetron 2 mg/ML SDV 2 mL 4 MG IVP (19:24)
[2022-02-20 19:31] LABS: Basophils # 0.1 10^3/uL (0.0-0.1); Basophils % 0.6 %; Eosinophils # 0.3 10^3/uL (0.0-0.8); Eosinophils % 2.2 %; Hematocrit 39.4 % (37.0-47.0); Hemoglobin 12.9 g/dL (11.5-15.3); Lymphocytes # 2.1 10^3/uL (0.8-4.8); Mean Corpuscular HGB Conc 32.7 g/dL (30.0-36.0); Mean Corpuscular Hemoglobin 31.5 pg (28.0-34.0); Mean Corpuscular Volume 96.1 fl (81-99); Mean Platelet Volume 10.2 fL (7.4-10.4); Monocytes # 0.8 10^3/uL (0.2-0.9); Neutrophils # 8.32 10^3/uL (1.8-7.7); Neutrophils % 71.9 %; Nucleated Red Blood Cells % 0 %; Platelet Count 222 10^3/cmm (130-400); Red Cell Distribution Width 14.6 % (12.1-15.1); White Blood Count 11.6 10^3/uL (4.0-10.0)
[2022-02-20 19:47] LABS: Bilirubin Urine Neg (Negative); Blood Urine Neg (Negative); Glucose Urine UA Norm (Normal); Ketones Urine 1+ (Negative); Leukocyte Esterase Urine 1+ (Negative); Nitrate Urine Negative (Negative); Protein Urine Neg (Negative); Urine Appearance Clear (CLEAR); Urine Color Yellow (Yellow); Urobilinogen Urine 1 mg/dL (Negative); pH Urine 6 (5-7)
[2022-02-20 19:48] LABS: Add Urine Microscopic? YES; RBC Urine 0-4 /hpf (0-2); Squamous Epithelial Cell Urine 15-25 /hpf (0-5)
[2022-02-20 19:49] LABS: Add Urine Culture? No; Bacteria Urine TRACE /hpf; Mucus Urine 2+ /hpf
[2022-02-20 19:52] LABS: Alanine Aminotransferase 11 U/L (0-33); Albumin Level 3.6 g/dL (3.5-5.2); Alkaline Phosphatase 111 U/L (35-105); Anion Gap 12.7 (5-19); Aspartate Amino Transferase 9 U/L (0-32); Blood Urea Nitrogen 11 mg/dL (6-20); Calcium 8.8 mg/dL (8.5-10.5); Carbon Dioxide 23 mmol/L (22-29); Chloride 109 mmol/L (98-107); Globulin 2.6 g/dL (1.3-4.6); Glomerular Filtration Rate 65.2 mL/min (90-130); Glucose 89 mg/dL (65-115); Lipase 36 U/L (13-60); Osmolality Calculated 291 mOsm/kg (285-295); Potassium 3.7 mmol/L (3.5-5.1); Sodium 141 mmol/L (136-145); Total Bilirubin 0.2 mg/dL (0.15-1.2); Total Protein 6.2 g/dL (6.6-8.7)
[2022-02-20 19:59] VITALS: RESP 16
[2022-02-20 20:16] VITALS: BP 128/68; PULSE 80; RESP 18; O2SAT 93
== END 2022-02-20 21:44 | disposition home or self-care (01) ==
PROVIDERS: Emergency Provider Emergency Medicine; PCP Electrodiagnostic Medicine
DX: R10.9 Unspecified abdominal pain (principal); J44.9 Chronic obstructive pulmonary disease, unspecified; F17.210 Nicotine dependence, cigarettes, uncomplicated
CPT/HCPCS: 74018; 80053; 81001; 83690; 85025; 96361; 96374; 96375; 96376; 99284; J2270; J2405; J7040

== ENCOUNTER 2022-02-23 19:20 | Emergency (ER) | payer MEDICARE, MEDICAID, SELFPAY ==
[2022-02-23 20:01] VITALS: BP 116/67; PULSE 91; RESP 17; TEMP 36.9; O2SAT 95
[2022-02-23 20:44] LABS: Basophils # 0.1 10^3/uL (0.0-0.1); Basophils % 0.5 %; Eosinophils # 0.3 10^3/uL (0.0-0.8); Eosinophils % 2.7 %; Hemoglobin 13.9 g/dL (11.5-15.3); Lymphocytes # 2.2 10^3/uL (0.8-4.8); Lymphocytes % 22.7 %; Mean Corpuscular HGB Conc 32.3 g/dL (30.0-36.0); Mean Corpuscular Hemoglobin 31.8 pg (28.0-34.0); Mean Corpuscular Volume 98.4 fl (81-99); Mean Platelet Volume 10.1 fL (7.4-10.4); Monocytes # 0.8 10^3/uL (0.2-0.9); Monocytes % 8.3 %; Neutrophils # 6.35 10^3/uL (1.8-7.7); Neutrophils % 65.4 %; Nucleated Red Blood Cells % 0 %; Platelet Count 225 10^3/cmm (130-400); Red Blood Count 4.37 10^6/uL (4.1-5.3); Red Cell Distribution Width 14.9 % (12.1-15.1); White Blood Count 9.7 10^3/uL (4.0-10.0)
[2022-02-23 21:02] LABS: Alanine Aminotransferase 10 U/L (0-33); Albumin Level 3.6 g/dL (3.5-5.2); Alkaline Phosphatase 130 U/L (35-105); Anion Gap 15.7 (5-19); Aspartate Amino Transferase 10 U/L (0-32); Blood Urea Nitrogen 14 mg/dL (6-20); Calcium 8.8 mg/dL (8.5-10.5); Carbon Dioxide 20 mmol/L (22-29); Chloride 107 mmol/L (98-107); Globulin 2.8 g/dL (1.3-4.6); Glomerular Filtration Rate 74.7 mL/min (90-130); Glucose 97 mg/dL (65-115); Lipase 33 U/L (13-60); Osmolality Calculated 288 mOsm/kg (285-295); Potassium 3.7 mmol/L (3.5-5.1); Sodium 139 mmol/L (136-145); Total Bilirubin 0.2 mg/dL (0.15-1.2); Total Protein 6.4 g/dL (6.6-8.7)
--- NOTE | 2022-02-23 22:47 | W.ED.NAVMDI ---
HPI - Nausea/Vomiting/Diarrhea General: Chief complaint: Nausea/Vomiting/Diarrhea Stated complaint: N/V/D Time Seen by Provider: 02/23/22 22:35 Source: patient and EMS Mode of arrival: EMS Limitations: no limitations History of Present Illness: 56-year-old female has history of chronic abdominal pain states that she been having nausea vomiting diarrhea over the last 2 days. States she had abdominal cramping as well she rates 2 out of 10 she denies any worsening proving factors she states she takes some Pepto-Bismol with out improvement. Patient is in no distress. Denies any chest pain. Associated nausea: Yes Associated symtoms: Reports nausea; Denies chest pain, dysuria or headache(s) Review of Systems Const: Denies: fever(s), chills, body aches or change in appetite Eyes: Denies: blurry vision or eye discomfort ENMT: Denies: throat pain or dental pain Card: Denies: chest pain Resp: Denies: dyspnea GI: Reports: abdominal pain, nausea, vomiting and diarrhea : Denies: dysuria Musc: Denies: neck pain or back pain Skin/Breast: Denies: rash Neuro: Denies: headache(s) Psych: Denies: depression Wilbur/Lymph: Denies: easy bruising All/Imm: Denies: urticaria PFSH ED PFSH: Medical History Bladder stone Borderline personality disorder Chronic anxiety Chronic back pain greater than 3 months duration Chronic gastritis without bleeding COPD (chronic obstructive pulmonary disease) Cystitis cystica Dysphagia Esophageal stricture Foreign body in bladder GERD without esophagitis Neurogenic bladder Psychiatric care Restrictive lung disease Schizoaffective disorder, bipolar type Tardive dyskinesia Urgency incontinence Surgical History H/O bladder repair surgery MESH REPAIR H/O colonoscopy with polypectomy H/O esophagogastroduodenoscopy (09/21/20) H/O: hysterectomy History of appendectomy History of breast biopsy History of foot surgery sx in 2009. Screws placed by Dr. Don. History of ureter stent Hx of cholecystectomy S/P bronchoscopy with biopsy Family History Mother No problems noted. Father No problems noted. Other Asthma Cancer Diabetes Heart disease Social History Smoking and tobacco status: current every day smoker (0.5 ppd, started at age 27) cigarettes Packs smoked per day: 1 Years cigarettes smoked: 20 [ Other cigarette details: Hx of 1 PPD x 20 Years, started at age 27] Quit status (tobacco): considering quitting Second hand smoke exposure: Yes Smoking risk assessment/counseling performed?: No Alcohol intake: never Counseling given: No Counseling given: No Lives independently: Yes Household members: spouse Marital status: Number of children: 3 Current occupational status: disabled History of recent travel: No Current gender identity: Female Female Reproductive History: Date of last menstrual period: 06/19/95 Physical Exam Const: COMMON NORMALS: no acute distress, patient oriented x3 and healthy appearing HENMT: COMMON NORMALS: normocephalic and atraumatic HEAD & SCALP: normocephalic and atraumatic Eye: COMMON NORMALS: Equal, round and reactive pupils present and EOMs intact bilaterally PUPIL: Yes Equal, round and reactive pupils present Neck/C-Spine: COMMON NORMALS: full ROM and supple Chest: COMMONS NORMALS: normal inspection of the chest and normal palpation of entire chest wall Resp: COMMON NORMALS: normal respiratory effort, No retractions, No use of accessory muscles and clear to auscultation bilaterally AUSCULTATION: clear to auscultation bilaterally Cardio: COMMON NORMALS: regular rate, regular rhythm and No murmurs present (Cardio) RATE: regular rate RHYTHM: regular rhythm GI: COMMON NORMALS: Normal to inspection, nondistended, normoactive bowel sounds present, Soft to palpation, non-tender and no masses PALPATION: Yes Soft to palpation Extremity: COMMON NORMALS: normal to inspection and full ROM Neuro: COMMON NORMALS: patient oriented x3, moves all extremities and no focal motor deficits Psych: COMMON NORMALS: mental status grossly normal, Normal thought process present and cooperative THOUGHT PROCESS: Normal thought process present Skin: COMMON NORMALS: no rashes or lesions noted and no wounds GENERAL SKIN EXAM: no rashes or lesions noted Course Vital Signs: Vital signs: Vital Signs Temperature 98.5 F 02/23/22 20:01 Pulse Rate 91 02/23/22 20:01 Respiratory Rate 17 09/07/22 20:01 Blood Pressure 116/67 09/07/22 20:01 Pulse Oximetry 95 02/23/22 20:01 Oxygen Delivery Me thod 02/23/22 20:01 MDM - Nausea/Vomiting/Diarrhea Medical Decision Making Latesha presents with vomiting and diarrhea she has chronic GI issues she is well-appearing here blood work is normal abdominal exam is benign patient given Zofran along with pain meds and Lomotil here she is to take Imodium at home and will prescribe her Zofran she is to follow-up with PCP and return if worsening she understands agrees to plan. Lab Data : 02/23/22 20:23 02/23/22 20: Laboratory Results WBC 9.7 10^3/uL (4.0-10.0) 02/23/22 20: RBC 4.37 10^6/uL (4.1-5.3) 02/23/22 20: Hgb 13.9 g/dL (11.5-15.3) 02/23/22: Hct 43.0 % (37.0-47.0) 02/23/22 20: MCV 98.4 fl (81-99) 02/23/22 20: MCH 31.8 pg (28.0-34.0) 02/23/22 20: MCHC 32.3 g/dL (30.0-36.0) 02/23/22 20: RDW 14.9 % (12.1-15.1) 02/23/22 20: Plt Count 225 10^3/cmm (130-400) 02/23/22 20: MPV 10.1 fL (7.4-10.4) 02/23/22 20: Neut % (Auto) 65.4 % 02/23/22 20: Lymph % (Auto) 22.7 % 02/23/22 20: [place] % (Auto) 8.3 % 02/23/22 20: Eos % (Auto) 2.7 % 02/23/22 20: Baso % (Auto) 0.5 % 02/23/22 20: Neut # (Auto) 6.35 10^3/uL (1.8-7.7) 02/23/22: Lymph # (Auto) 2.2 10^3/uL (0.8-4.8) 02/23/22 20:23 [place] # (Auto) 0.8 10^3/uL (0.2-0.9) 02/23/22 20:23 Eos # (Auto) 0.3 10^3/uL (0.0-0.8) 02/23/22 20:23 Baso # (Auto) 0.1 10^3/uL (0.0-0.1) 02/23/22 20:23 Nucleated RBC % (auto) 0 % 02/23/22 20: Nucleated RBCs # 0.0 /100WBC 02/23/22 20:23 Sodium 139 mmol/L (136-145) 02/23/22 20: Potassium 3.7 mmol/L (3.5-5.1) 02/23/22 20: Chloride 107 mmol/L (98-107) 02/23/22 20: Carbon Dioxide 20 mmol/L (22-29) L 02/23/22 20:23 Anion Gap 15.7 (5-19) 02/23/22 20:23 BUN 14 mg/dL (6-20) 02/23/22 20:23 Creatinine 0.8 mg/dL (0.5-0.9) 02/23/22 20:23 GFR Calculation 74.7 mL/min (90-130) L 02/23/22 20: Glucose 97 mg/dL (65-115) 02/23/22 20:23 Calculated Osmolality 288 mOsm/kg (285-295) 02/23/22 20: Calcium 8.8 mg/dL (8.5-10.5) 02/23/22 20:23 Total Bilirubin 0.2 mg/dL (0.15-1.2) 02/23/22 20:23 AST 10 U/L (0-32) 02/23/22 20: ALT 10 U/L (0-33) 02/23/22 20:23 Alkaline Phosphatase 130 U/L (35-105) H 02/23/22 20:23 Total Protein 6.4 g/dL (6.6-8.7) L 02/23/22 20: Albumin 3.6 g/dL (3.5-5.2) 02/23/22 20:23 Globulin 2.8 g/dL (1.3-4.6) 02/23/22 20:23 Lipase 33 U/L (13-60) 02/23/22 20:23 Discharge Plan Discharge Patient Disposition: Home Clinical Impression: Vomiting, Diarrhea Condition: Stable Prescriptions: New ondansetron 4 mg tablet,disintegrating 4 mg PO Q6H PRN (Reason: nausea and vomiting) Qty: 14 0RF No Action fluticasone propionate 50 mcg/actuation spray,suspension 1 spray intranasal BID PRN (Reason: Allergy Symptoms) Qty: 16 1RF lamotrigine 200 mg tablet 200 mg PO DAILY@06 Qty: 30 1RF Ingrezza 80 mg capsule 80 mg PO DAILY@06 Qty: 30 2RF albuterol sulfate 90 mcg/actuation HFA aerosol inhaler 2 puff inhalation Q6H PRN (Reason: shortness of breath or wheezing) acetaminophen 500 mg Tablet 1,000 mg PO Q6H PRN (Reason: Pain) famotidine 20 mg tablet 20 mg PO DAILY@06 ondansetron 4 mg tablet,disintegrating 4 mg PO Q8H PRN (Reason: nausea and vomiting) Qty: 15 0RF citalopram 20 mg tablet 40 mg PO BEDTIME@21 clonidine HCl 0.1 mg tablet 0.1 mg PO BID PRN (Reason: blood pressure/withdrawal) buprenorphine-naloxone 2-0.5 mg Tablet, Sublingual 0.5 tab SUBLINGUAL DAILY@06 quetiapine [Seroquel] 300 mg tablet 300 mg PO BEDTIME Trelegy Ellipta 200-62.5-25 mcg blister with device 1 ea inhalation DAILY@06 Rx Instructions: STOP BREO AND IPRATROPIUM fluconazole 100 mg tablet 100 mg PO DAILY Qty: 7 0RF nystatin 100,000 unit/gram powder 1 applic topical BID Qty: 30 0RF Rx Instructions: apply locally to B/L groin folds pantoprazole 40 mg tablet,delayed release (DR/EC) 40 mg PO DAILY@06 dicyclomine 10 mg capsule 10 mg PO TID Qty: 60 0RF Discharge Orders: Discharge ED (Routine); Ordered 02/23/22 Ordered By: Damien Urbina Referrals: Gordo Feng, [Primary Care Provider] - 1-3 days Discharge Diet: Advance as tolerated Discharge Activity: Resume usual activity Patient Instructions: Acute Nausea and Vomiting (ED), Acute Diarrhea (ED) Coding Level of Care Code ED Vulcanizer for Shellie Fwd Exam Comprehensive
[2022-02-23 23:10] VITALS: RESP 16; O2SAT 96
[2022-02-23] MEDS: HYDROmorphone 1 mg/mL INJ 1 mL 0.5 MG IM (23:10)
[2022-02-23] MEDS: ondansetron 2 mg/ML SDV 2 mL 4 MG IM (23:10)
[2022-02-23] MEDS: diphenoxylate/atropine Tablet 1 TAB PO (23:10)
[2022-02-23 23:55] VITALS: RESP 16; O2SAT 97
== END 2022-02-23 23:59 | disposition home or self-care (01) ==
PROVIDERS: Emergency Provider Emergency Medicine; PCP Electrodiagnostic Medicine
DX: R11.2 Nausea with vomiting, unspecified (principal); R19.7 Diarrhea, unspecified; R11.10 Vomiting, unspecified; K29.50 Unspecified chronic gastritis without bleeding; K21.9 Gastro-esophageal reflux disease without esophagitis
CPT/HCPCS: 36415; 80053; 83690; 85025; 96372; 99284; J1170; J2405

== ENCOUNTER 2022-02-27 22:26 | Emergency (ER) | payer MEDICARE, MEDICAID, SELFPAY ==
[2022-02-27 22:29] VITALS: BP 141/98; PULSE 88; RESP 20; TEMP 36.8; O2SAT 95; BMI 31.9
--- NOTE | 2022-02-27 22:38 | ED_ITS ---
Documented by User: Garett Chávez MD 03/03/22 21:04 HPI - General Adult General: Chief complaint: Abdominal Pain Stated complaint: ABD PAIN Time Seen by Provider: 02/27/22 22:30 History of Present Illness: Patient is a 56-year-old female with a history of cholecystectomy, appendectomy, hysterectomy who presents the emergency with complaints of diffuse abdominal pain since yesterday afternoon. Recently patient was seen at [facility] she claimed that she was diagnosed with diverticulitis and discharged home with Carafate. Patient does not remember b eing discharged with antibiotics. Since yesterday afternoon, patient has had significant nausea or vomiting. Patient denies any fever or chills, diarrhea melena medic easier. Patient denies any complaints or prior history of renal colic. Onset: yesterday afternoon Duration:ongoing Location:home Severity:moderate Associated symptoms: Reports nausea and vomiting; Deny chest pain, dyspnea, rash or palpitations Review of Systems Const: Denies: fever(s) or chills Eyes: Denies: change in vision ENMT: Denies: mouth pain Card: Denies: chest pain or palpitations Resp: Denies: dyspnea or non-productive cough GI: Reports: abdominal pain (+lower abd pian), nausea and vomiting; Denies: diarrhea : Denies: dysuria Musc: Denies: extremity pain Skin/Breast: Denies: rash or new lesions Neuro: Denies: weakness in extremities Psych: Reports: other (Normal mood) Wilbur/Lymph: Denies: easy bruising PFSH ED PFSH: Medical History Bladder stone Borderline personality disorder Cannabis dependence, uncomplicated Chronic anxiety Chronic back pain greater than 3 months duration Chronic gastritis without bleeding COPD (chronic obstructive pulmonary disease) Cystitis cystica Dysphagia Esophageal stricture Foreign body in bladder GERD without esophagitis Neurogenic bladder Opioid dependence, uncomplicated Psychiatric care Restrictive lung disease Schizoaffective disorder, bipolar type Tardive dyskinesia Urgency incontinence Surgical History H/O bladder repair surgery MESH REPAIR H/O colonoscopy with polypectomy H/O esophagogastroduodenoscopy (09/21/20) H/O: hysterectomy History of appendectomy History of breast biopsy History of foot surgery sx in 2009. Screws placed by Dr. Don. History of ureter stent Hx of cholecystectomy S/P bronchoscopy with biopsy Family History Mother No problems noted. Father No problems noted. Other Asthma Cancer Diabetes Heart disease Social History Smoking and tobacco status: current every day smoker (0.5 ppd, started at age 27) cigarettes Packs smoked per day: 1 Years cigarettes smoked: 20 [ Other cigarette details: Hx of 1 PPD x 20 Years, started at age 27] Quit status (tobacco): considering quitting Second hand smoke exposure: Yes Smoking risk assessment/counseling performed?: No Alcohol intake: never Counseling given: No Counseling given: No Lives independently: Yes Household members: spouse Marital status: Number of children: 3 Current occupational status: disabled History of recent travel: No Current gender identity: Female Female Reproductive History: Date of last menstrual period: 06/19/95 Physical Exam Const: COMMON NORMALS: alert HENMT: COMMON NORMALS: atraumatic HEAD & SCALP: atraumatic MOUTH: moist mucous membranes not abnormal Eye: COMMON NORMALS: EOMs intact bilaterally and conjunctivae normal CONJUNCTIVA: Yes conjunctivae normal Neck/C-Spine: COMMON NORMALS: full ROM and supple Resp: COMMON NORMALS: normal respiratory effort and clear to auscultation bilaterally AUSCULTATION: clear to auscultation bilaterally Cardio: COMMON NORMALS: regular rate RATE: regular rate GI: COMMON NORMALS: Soft to palpation PALPATION: Yes Soft to palpation OTHER: +mild diffuse abd TTP. NO guarding rebound, guarding, rigidity. No CVA tenderness to percussion. Neg Gudino/Neg McBurney's point tenderness, no suprabupic tenderness to palpation. Extremity: COMMON NORMALS: full ROM Neuro: SENSORIUM/ORIENTATION: Yes alert MOTOR EXAM: No Abnormal motor strength present and Other motor observations present (no focal motor deficits) Psych: COMMON NORMALS: speech normal SPEECH: Yes normal speech MOOD & AFFECT: Yes euthymic mood Course Vital Signs: Vital signs: Vital Signs Temperature 98.3 F 02/27/22 22:29 Pulse Rate 75 02/27/22 23:55 Respiratory Rate 17 02/27/22 23:55 Blood Pressure 147/93 02/27/22 23:55 Pulse Oximetry 98 02/27/22 23:55 Oxygen Delivery Me thod 02/27/22 23:55 MDM - General Adult Medical Decision Making 56-year-old female history cholecystectomy, appendectomy, prior hysterectomy presenting to the emergency room with for evaluation of diffuse abdominal pain since discharge from associated nausea vomiting. On exam, patient is hemodynamically stable in no acute distress. Patient has mild tenderness palpation diffusely any guarding or rebound tenderness. Case signed out to Dr. Deleon pending blood work and repeat assessment. Lab Data : 02/27/22 22:50 02/27/22 22:50 Laboratory Results WBC 5.8 10^3/uL (4.0-10.0) 02/27/22 22:50 RBC 4.30 10^6/uL (4.1-5.3) 02/27/22 22:50 Hgb 13.4 g/dL (11.5-15.3) 02/27/22 22:50 Hct 40.9 % (37.0-47.0) 02/27/22 22:50 MCV 95.1 fl (81-99) 02/27/22 22:50 MCH 31.2 pg (28.0-34.0) 02/27/22 22:50 MCHC 32.8 g/dL (30.0-36.0) 02/27/22 22:50 RDW 14.6 % (12.1-15.1) 02/27/22 22:50 Plt Count 219 10^3/cmm (130-400) 02/27/22 22:50 MPV 10.3 fL (7.4-10.4) 02/27/22 22:50 Neut % (Auto) 51.0 % 02/27/22 22:50 Lymph % (Auto) 32.2 % 02/27/22 22:50 [place] % (Auto) 10.7 % 02/27/22 22:50 Eos % (Auto) 5.0 % 02/27/22 22:50 Baso % (Auto) 0.9 % 02/27/22 22:50 Neut # (Auto) 2.95 10^3/uL (1.8-7.7) 02/27/22 22:50 Lymph # (Auto) 1.9 10^3/uL (0.8-4.8) 02/27/22 22:50 [place] # (Auto) 0.6 10^3/uL (0.2-0.9) 02/27/22 22:50 Eos # (Auto) 0.3 10^3/uL (0.0-0.8) 02/27/22 22:50 Baso # (Auto) 0.1 10^3/uL (0.0-0.1) 02/27/22 22:50 Nucleated RBC % (auto) 0 % 02/27/22 22:50 Nucleated RBCs # 0.0 /100WBC 02/27/22 22:50 Sodium 140 mmol/L (136-145) 02/27/22 22:50 Potassium 3.8 mmol/L (3.5-5.1) 02/27/22 22:50 Chloride 106 mmol/L (98-107) 02/27/22 22:50 Carbon Dioxide 23 mmol/L (22-29) 02/27/22 22:50 Anion Gap 14.8 (5-19) 02/27/22 22:50 BUN 15 mg/dL (6-20) 02/27/22 22:50 Creatinine 0.9 mg/dL (0.5-0.9) 02/27/22 22:50 GFR Calculation 65.2 mL/min (90-130) L 02/27/22 22:50 Glucose 93 mg/dL (65-115) 02/27/22 22:50 Calculated Osmolality 291 mOsm/kg (285-295) 02/27/22 22:50 Calcium 9.5 mg/dL (8.5-10.5) 02/27/22 22:50 Total Bilirubin 0.2 mg/dL (0.15-1.2) 02/27/22 22:50 AST 10 U/L (0-32) 02/27/22 22:50 ALT 11 U/L (0-33) 02/27/22 22:50 Alkaline Phosphatase 125 U/L (35-105) H 02/27/22 22:50 Total Protein 6.6 g/dL (6.6-8.7) 02/27/22 22:50 Albumin 3.6 g/dL (3.5-5.2) 02/27/22 22:50 Globulin 3.0 g/dL (1.3-4.6) 02/27/22 22:50 Lipase 27 U/L (13-60) 02/27/22 22:50 Urine Color Yellow (Yellow) 02/27/22 23:05 Urine Appearance Clear (CLEAR) 02/27/22 23:05 Urine pH 6 (5-7) 02/27/22 23:05 Ur Specific [place] 1.025 (1.005-1.030) 02/27/22 23:05 Urine Protein Neg (Negative) 02/27/22 23:05 Urine Glucose (UA) Norm (Normal) 02/27/22 23:05 Urine Ketones Negative (Negative) 02/27/22 23:05 Urine Blood Neg (Negative) 02/27/22 23:05 Urine Nitrate Negative (Negative) 02/27/22 23:05 Urine Bilirubin Neg (Negative) 02/27/22 23:05 Urine Urobilinogen Neg mg/dL (Negative) 02/27/22 23:05 Ur Leukocyte Esterase Trace (Negative) H 02/27/22 23:05 Urine RBC 0-4 /hpf (0-2) H 02/27/22 23:05 Urine WBC 5-10 /hpf (0-5) H 02/27/22 23:05 Ur Squamous Epith Cells 10-15 /hpf (0-5) H 02/27/22 23:05 Amorphous Sediment Trace /hpf 02/27/22 23:05 Urine Bacteria Trace /hpf (NONE) 02/27/22 23:05 Urine Mucus 2+ /hpf 02/27/22 23:05 Discharge Plan Discharge Patient Disposition: Home Clinical Impression: Abdominal pain Condition: Stable Prescriptions: New Pepcid 20 mg tablet 20 mg PO BID PRN (Reason: abdominal pain) 10 Days Qty: 20 0RF ondansetron 4 mg tablet,disintegrating 4 mg PO TID PRN (Reason: nausea and vomiting) 4 Days Qty: 12 0RF Maalox Advanced 1,000-60 mg tablet,chewable 1 tab PO TID PRN (Reason: abdominal pain) 7 Days Qty: 21 0RF No Action sucralfate [Carafate] 1 gram tablet 1 g PO .4x daily quetiapine [Seroquel] 100 mg tablet 150 mg PO .HS Qty: 45 2RF citalopram 20 mg tablet 40 mg PO BEDTIME@21 Qty: 60 0RF fluticasone propionate 50 mcg/actuation spray,suspension 1 spray intranasal BID PRN (Reason: Allergy Symptoms) Qty: 16 1RF lamotrigine 200 mg tablet 200 mg PO DAILY@06 Qty: 30 1RF Ingrezza 80 mg capsule 80 mg PO DAILY@06 Qty: 30 2RF albuterol sulfate 90 mcg/actuation HFA aerosol inhaler 2 puff inhalation Q6H PRN (Reason: shortness of breath or wheezing) acetaminophen 500 mg Tablet 1,000 mg PO Q6H PRN (Reason: Pain) famotidine 20 mg tablet 20 mg PO DAILY@06 ondansetron 4 mg tablet,disintegrating 4 mg PO Q8H PRN (Reason: nausea and vomiting) Qty: 15 0RF clonidine HCl 0.1 mg tablet 0.1 mg PO BID PRN (Reason: blood pressure/withdrawal) buprenorphine-naloxone 2-0.5 mg Tablet, Sublingual 0.5 tab SUBLINGUAL DAILY@06 Trelegy Ellipta 200-62.5-25 mcg blister with device 1 ea inhalation DAILY@06 Rx Instructions: STOP BREO AND IPRATROPIUM fluconazole 100 mg tablet 100 mg PO DAILY Qty: 7 0RF nystatin 100,000 unit/gram powder 1 applic topical BID Qty: 30 0RF Rx Instructions: apply locally to B/L groin folds pantoprazole 40 mg tablet,delayed release (DR/EC) 40 mg PO DAILY@06 dicyclomine 10 mg capsule 10 mg PO TID Qty: 60 0RF ondansetron 4 mg tablet,disintegrating 4 mg PO Q6H PRN (Reason: nausea and vomiting) Qty: 14 0RF ondansetron 4 mg tablet,disintegrating 4 mg PO Q8H PRN (Reason: nausea and vomiting) Qty: 15 0RF Discharge Orders: Discharge ED (Routine); Ordered 02/28/22 Ordered By: Chivo Deleon Referrals: Gordo Feng, [Primary Care Provider] - Discharge Diet: Advance as tolerated Discharge Activity: Increase activity as tolerated Patient Instructions: Abdominal Pain (ED) Activity Restrictions/Additional Instructions: Please come back if you have any worsening abdominal pain, fever or chills, nausea or vomiting, diarrhea, blood in the stool, inability hold down liquid or solids, or any new concerning complaints. Coding Level of Care Code ED Healthcare Insurance Sales Agent for Chg Fwd Exam Comprehensive Documented by User: Chivo Deleon DO 02/28/22 01:23 HPI - General Adult General: Chief complaint: Abdominal Pain Stated complaint: ABD PAIN Time Seen by Provider: 02/27/22 22:30 PFSH ED PFSH: Medical History Bladder stone Borderline personality disorder Cannabis dependence, uncomplicated Chronic anxiety Chronic back pain greater than 3 months duration Chronic gastritis without bleeding COPD (chronic obstructive pulmonary disease) Cystitis cystica Dysphagia Esophageal stricture Foreign body in bladder GERD without esophagitis Neurogenic bladder Opioid dependence, uncomplicated Psychiatric care Restrictive lung disease Schizoaffective disorder, bipolar type Tardive dyskinesia Urgency incontinence Surgical History H/O bladder repair surgery MESH REPAIR H/O colonoscopy with polypectomy H/O esophagogastroduodenoscopy (09/21/20) H/O: hysterectomy History of appendectomy History of breast biopsy History of foot surgery sx in 2009. Screws placed by Dr. Don. History of ureter stent Hx of cholecystectomy S/P bronchoscopy with biopsy Family History Mother No problems noted. Father No problems noted. Other Asthma Cancer Diabetes Heart disease Social History Smoking and tobacco status: current every day smoker (0.5 ppd, started at age 27) cigarettes Packs smoked per day: 1 Years cigarettes smoked: 20 [ Other cigarette details: Hx of 1 PPD x 20 Years, started at age 27] Quit status (tobacco): considering quitting Second hand smoke exposure: Yes Smoking risk assessment/counseling performed?: No Alcohol intake: never Counseling given: No Counseling given: No Lives independently: Yes Household members: spouse Marital status: Number of children: 3 Current occupational status: disabled History of recent travel: No Current gender identity: Female Course Vital Signs: Vital signs: Vital Signs Temperature 98.3 F 02/27/22 22:29 Pulse Rate 75 02/27/22 23:55 Respiratory Rate 17 02/27/22 23:55 Blood Pressure 147/93 02/27/22 23:55 Pulse Oximetry 98 02/27/22 23:55 Oxygen Delivery Me thod 02/27/22 23:55 MDM - General Adult Medical Decision Making 56-year-old female history cholecystectomy, appendectomy, prior hysterectomy presenting to the emergency room with for evaluation of diffuse abdominal pain since discharge from associated nausea vomiting. On exam, patient is hemodynamically stable in no acute distress. Patient has mild tenderness palpation diffusely any guarding or rebound tenderness. Case signed out to Dr. Deleon pending blood work and repeat assessment. Signed out to me by the previous physician at shift change. CBC is normal. BMP is normal. Urinalysis is negative for infection. She is well-known to the ER for frequent complaints of belly pain. She is discharged Lab Data : 02/27/22 22:50 02/27/22 22:50 Laboratory Results WBC 5.8 10^3/uL (4.0-10.0) 02/27/22 22:50 RBC 4.30 10^6/uL (4.1-5.3) 02/27/22 22:50 Hgb 13.4 g/dL (11.5-15.3) 02/27/22 22:50 Hct 40.9 % (37.0-47.0) 02/27/22 22:50 MCV 95.1 fl (81-99) 02/27/22 22:50 MCH 31.2 pg (28.0-34.0) 02/27/22 22:50 MCHC 32.8 g/dL (30.0-36.0) 02/27/22 22:50 RDW 14.6 % (12.1-15.1) 02/27/22 22:50 Plt Count 219 10^3/cmm (130-400) 02/27/22 22:50 MPV 10.3 fL (7.4-10.4) 02/27/22 22:50 Neut % (Auto) 51.0 % 02/27/22 22:50 Lymph % (Auto) 32.2 % 02/27/22 22:50 [place] % (Auto) 10.7 % 02/27/22 22:50 Eos % (Auto) 5.0 % 02/27/22 22:50 Baso % (Auto) 0.9 % 02/27/22 22:50 Neut # (Auto) 2.95 10^3/uL (1.8-7.7) 02/27/22 22:50 Lymph # (Auto) 1.9 10^3/uL (0.8-4.8) 02/27/22 22:50 [place] # (Auto) 0.6 10^3/uL (0.2-0.9) 02/27/22 22:50 Eos # (Auto) 0.3 10^3/uL (0.0-0.8) 02/27/22 22:50 Baso # (Auto) 0.1 10^3/uL (0.0-0.1) 02/27/22 22:50 Nucleated RBC % (auto) 0 % 02/27/22 22:50 Nucleated RBCs # 0.0 /100WBC 02/27/22 22:50 Sodium 140 mmol/L (136-145) 02/27/22 22:50 Potassium 3.8 mmol/L (3.5-5.1) 02/27/22 22:50 Chloride 106 mmol/L (98-107) 02/27/22 22:50 Carbon Dioxide 23 mmol/L (22-29) 02/27/22 22:50 Anion Gap 14.8 (5-19) 02/27/22 22:50 BUN 15 mg/dL (6-20) 02/27/22 22:50 Creatinine 0.9 mg/dL (0.5-0.9) 02/27/22 22:50 GFR Calculation 65.2 mL/min (90-130) L 02/27/22 22:50 Glucose 93 mg/dL (65-115) 02/27/22 22:50 Calculated Osmolality 291 mOsm/kg (285-295) 02/27/22 22:50 Calcium 9.5 mg/dL (8.5-10.5) 02/27/22 22:50 Total Bilirubin 0.2 mg/dL (0.15-1.2) 02/27/22 22:50 AST 10 U/L (0-32) 02/27/22 22:50 ALT 11 U/L (0-33) 02/27/22 22:50 Alkaline Phosphatase 125 U/L (35-105) H 02/27/22 22:50 Total Protein 6.6 g/dL (6.6-8.7) 02/27/22 22:50 Albumin 3.6 g/dL (3.5-5.2) 02/27/22 22:50 Globulin 3.0 g/dL (1.3-4.6) 02/27/22 22:50 Lipase 27 U/L (13-60) 02/27/22 22:50 Urine Color Yellow (Yellow) 02/27/22 23:05 Urine Appearance Clear (CLEAR) 02/27/22 23:05 Urine pH 6 (5-7) 02/27/22 23:05 Ur Specific [place] 1.025 (1.005-1.030) 02/27/22 23:05 Urine Protein Neg (Negative) 02/27/22 23:05 Urine Glucose (UA) Norm (Normal) 02/27/22 23:05 Urine Ketones Negative (Negative) 02/27/22 23:05 Urine Blood Neg (Negative) 02/27/22 23:05 Urine Nitrate Negative (Negative) 02/27/22 23:05 Urine Bilirubin Neg (Negative) 02/27/22 23:05 Urine Urobilinogen Neg mg/dL (Negative) 02/27/22 23:05 Ur Leukocyte Esterase Trace (Negative) H 02/27/22 23:05 Urine RBC 0-4 /hpf (0-2) H 02/27/22 23:05 Urine WBC 5-10 /hpf (0-5) H 02/27/22 23:05 Ur Squamous Epith Cells 10-15 /hpf (0-5) H 02/27/22 23:05 Amorphous Sediment Trace /hpf 02/27/22 23:05 Urine Bacteria Trace /hpf (NONE) 02/27/22 23:05 Urine Mucus 2+ /hpf 02/27/22 23:05 Discharge Plan Discharge Patient Disposition: Home Clinical Impression: Abdominal pain Condition: Stable Prescriptions: New Pepcid 20 mg tablet 20 mg PO BID PRN (Reason: abdominal pain) 10 Days Qty: 20 0RF ondansetron 4 mg tablet,disintegrating 4 mg PO TID PRN (Reason: nausea and vomiting) 4 Days Qty: 12 0RF Maalox Advanced 1,000-60 mg tablet,chewable 1 tab PO TID PRN (Reason: abdominal pain) 7 Days Qty: 21 0RF No Action sucralfate [Carafate] 1 gram tablet 1 g PO .4x daily quetiapine [Seroquel] 100 mg tablet 150 mg PO .HS Qty: 45 2RF citalopram 20 mg tablet 40 mg PO BEDTIME@21 Qty: 60 0RF fluticasone propionate 50 mcg/actuation spray,suspension 1 spray intranasal BID PRN (Reason: Allergy Symptoms) Qty: 16 1RF lamotrigine 200 mg tablet 200 mg PO DAILY@06 Qty: 30 1RF Ingrezza 80 mg capsule 80 mg PO DAILY@06 Qty: 30 2RF albuterol sulfate 90 mcg/actuation HFA aerosol inhaler 2 puff inhalation Q6H PRN (Reason: shortness of breath or wheezing) acetaminophen 500 mg Tablet 1,000 mg PO Q6H PRN (Reason: Pain) famotidine 20 mg tablet 20 mg PO DAILY@06 ondansetron 4 mg tablet,disintegrating 4 mg PO Q8H PRN (Reason: nausea and vomiting) Qty: 15 0RF clonidine HCl 0.1 mg tablet 0.1 mg PO BID PRN (Reason: blood pressure/withdrawal) buprenorphine-naloxone 2-0.5 mg Tablet, Sublingual 0.5 tab SUBLINGUAL DAILY@06 Trelegy Ellipta 200-62.5-25 mcg blister with device 1 ea inhalation DAILY@06 Rx Instructions: STOP BREO AND IPRATROPIUM fluconazole 100 mg tablet 100 mg PO DAILY Qty: 7 0RF nystatin 100,000 unit/gram powder 1 applic topical BID Qty: 30 0RF Rx Instructions: apply locally to B/L groin folds pantoprazole 40 mg tablet,delayed release (DR/EC) 40 mg PO DAILY@06 dicyclomine 10 mg capsule 10 mg PO TID Qty: 60 0RF ondansetron 4 mg tablet,disintegrating 4 mg PO Q6H PRN (Reason: nausea and vomiting) Qty: 14 0RF ondansetron 4 mg tablet,disintegrating 4 mg PO Q8H PRN (Reason: nausea and vomiting) Qty: 15 0RF Discharge Orders: Discharge ED (Routine); Ordered 02/28/22 Ordered By: Chivo Deleon Referrals: Gordo Feng, DO [Primary Care Provider] - Discharge Diet: Advance as tolerated Discharge Activity: Increase activity as tolerated Patient Instructions: Abdominal Pain (ED) Activity Restrictions/Additional Instructions: Please come back if you have any worsening abdominal pain, fever or chills, nausea or vomiting, diarrhea, blood in the stool, inability hold down liquid or solids, or any new concerning complaints. Coding Level of Care Code ED Healthcare Insurance Sales Agent for Chg Fwd Exam Comprehensive
[2022-02-27 22:58] LABS: Basophils # 0.1 10^3/uL (0.0-0.1); Basophils % 0.9 %; Eosinophils # 0.3 10^3/uL (0.0-0.8); Hematocrit 40.9 % (37.0-47.0); Hemoglobin 13.4 g/dL (11.5-15.3); Lymphocytes # 1.9 10^3/uL (0.8-4.8); Lymphocytes % 32.2 %; Mean Corpuscular HGB Conc 32.8 g/dL (30.0-36.0); Mean Corpuscular Hemoglobin 31.2 pg (28.0-34.0); Mean Corpuscular Volume 95.1 fl (81-99); Mean Platelet Volume 10.3 fL (7.4-10.4); Monocytes # 0.6 10^3/uL (0.2-0.9); Monocytes % 10.7 %; Neutrophils # 2.95 10^3/uL (1.8-7.7); Nucleated Red Blood Cells % 0 %; Platelet Count 219 10^3/cmm (130-400); Red Cell Distribution Width 14.6 % (12.1-15.1); White Blood Count 5.8 10^3/uL (4.0-10.0)
[2022-02-27 23:20] LABS: Alanine Aminotransferase 11 U/L (0-33); Albumin Level 3.6 g/dL (3.5-5.2); Alkaline Phosphatase 125 U/L (35-105); Anion Gap 14.8 (5-19); Aspartate Amino Transferase 10 U/L (0-32); Blood Urea Nitrogen 15 mg/dL (6-20); Calcium 9.5 mg/dL (8.5-10.5); Carbon Dioxide 23 mmol/L (22-29); Chloride 106 mmol/L (98-107); Glomerular Filtration Rate 65.2 mL/min (90-130); Glucose 93 mg/dL (65-115); Lipase 27 U/L (13-60); Osmolality Calculated 291 mOsm/kg (285-295); Potassium 3.8 mmol/L (3.5-5.1); Sodium 140 mmol/L (136-145); Total Bilirubin 0.2 mg/dL (0.15-1.2); Total Protein 6.6 g/dL (6.6-8.7)
[2022-02-27 23:42] LABS: Slide Review Slide Review Perform
[2022-02-27 23:43] LABS: Add Urine Microscopic? YES; Bilirubin Urine Neg (Negative); Blood Urine Neg (Negative); Glucose Urine UA Norm (Normal); Ketones Urine Negative (Negative); Leukocyte Esterase Urine Trace (Negative); Nitrate Urine Negative (Negative); Protein Urine Neg (Negative); Specific Gravity, Urine 1.025 (1.005-1.030); Urine Appearance Clear (CLEAR); Urine Color Yellow (Yellow); Urobilinogen Urine Neg (Negative); pH Urine 6 (5-7)
[2022-02-27 23:44] LABS: Add Urine Culture? No; Amorphous Sediment Urine TRACE /hpf; Bacteria Urine TRACE /hpf; Mucus Urine 2+ /hpf; RBC Urine 0-4 /hpf (0-2)
[2022-02-27 23:55] VITALS: BP 147/93; PULSE 75; RESP 17; O2SAT 98
[2022-02-28] MEDS: ondansetron 2 mg/ML SDV 2 mL 4 MG IVP (00:06)
[2022-02-28] MEDS: morphine 4 mg/mL SDV 1 mL IVP (00:06)
== END 2022-02-28 00:20 | disposition home or self-care (01) ==
PROVIDERS: Emergency Medicine; Emergency Provider Emergency Medicine; PCP Electrodiagnostic Medicine
DX: R10.9 Unspecified abdominal pain (principal); F17.210 Nicotine dependence, cigarettes, uncomplicated
CPT/HCPCS: 80053; 81001; 83690; 85025; 96374; 96375; 99284; J2270; J2405

== ENCOUNTER 2022-03-02 19:00 | Emergency (ER) | payer MEDICARE, MEDICAID, SELFPAY ==
[2022-03-02 19:35] LABS: Basophils # 0.1 10^3/uL (0.0-0.1); Basophils % 0.6 %; Eosinophils # 0.3 10^3/uL (0.0-0.8); Eosinophils % 2.9 %; Hematocrit 43.7 % (37.0-47.0); Hemoglobin 14.5 g/dL (11.5-15.3); Lymphocytes # 2.4 10^3/uL (0.8-4.8); Lymphocytes % 20.3 %; Mean Corpuscular HGB Conc 33.2 g/dL (30.0-36.0); Mean Corpuscular Hemoglobin 31.6 pg (28.0-34.0); Mean Corpuscular Volume 95.2 fl (81-99); Mean Platelet Volume 10.3 fL (7.4-10.4); Monocytes # 0.9 10^3/uL (0.2-0.9); Monocytes % 7.6 %; Neutrophils # 8.09 10^3/uL (1.8-7.7); Neutrophils % 68.2 %; Nucleated Red Blood Cells % 0 %; Platelet Count 247 10^3/cmm (130-400); Red Blood Count 4.59 10^6/uL (4.1-5.3); Red Cell Distribution Width 14.4 % (12.1-15.1); White Blood Count 11.9 10^3/uL (4.0-10.0)
[2022-03-02 19:55] LABS: Lactate (Lactic Acid level) 1.5 mmol/L (0.5-2.2)
[2022-03-02 19:56] LABS: Alanine Aminotransferase 11 U/L (0-33); Albumin Level 3.9 g/dL (3.5-5.2); Alkaline Phosphatase 141 U/L (35-105); Anion Gap 15.7 (5-19); Aspartate Amino Transferase 11 U/L (0-32); Blood Urea Nitrogen 12 mg/dL (6-20); Calcium 9.3 mg/dL (8.5-10.5); Carbon Dioxide 22 mmol/L (22-29); Chloride 106 mmol/L (98-107); Glomerular Filtration Rate 57.8 mL/min (90-130); Glucose 94 mg/dL (65-115); Lipase 27 U/L (13-60); Osmolality Calculated 290 mOsm/kg (285-295); Potassium 3.7 mmol/L (3.5-5.1); Sodium 140 mmol/L (136-145); Total Bilirubin 0.2 mg/dL (0.15-1.2); Total Protein 6.9 g/dL (6.6-8.7)
[2022-03-02 20:49] VITALS: BP 113/76; PULSE 97; RESP 16; TEMP 37; O2SAT 96; BMI 32.3
[2022-03-02 22:47] LABS: Blood Urine Neg (Negative); Glucose Urine UA Norm (Normal); Ketones Urine 1+ (Negative); Nitrate Urine Negative (Negative); Protein Urine Neg (Negative); Urine Appearance Cloudy (CLEAR); Urine Color Yellow (Yellow); pH Urine 6 (5-7)
[2022-03-02 22:48] LABS: Add Urine Culture? No; Add Urine Microscopic? YES; Bacteria Urine TRACE /hpf; Bilirubin Urine Neg (Negative); Leukocyte Esterase Urine Trace (Negative); Mucus Urine 2+ /hpf; RBC Urine 0-4 /hpf (0-2); Squamous Epithelial Cell Urine 0-4 /hpf (0-5); Urobilinogen Urine 1 mg/dL (Negative); WBC Urine 0-4 /hpf (0-5)
--- NOTE | 2022-03-03 00:48 | CTR_ITS ---
PROCEDURE INFORMATION: Exam: CT Abdomen And Pelvis Without Contrast Exam date and time: 03/03/2022 2:06 AM Age: 56 years old Clinical indication: Nausea and vomiting; Abdominal pain; Generalized; Prior surgery; Surgery type: Gb. Appy. Hysterectomy. Bladder; Patient HX: C/O abd pain with n/v. Recent history of diverticulitis. ; Additional info: Abd pain, ? worsening diverticulitis TECHNIQUE: Imaging protocol: Computed tomography of the abdomen and pelvis without contrast. Radiation optimization: All CT scans at this facility use at least one of these dose optimization techniques: automated exposure control; mA and/or kV adjustment per patient size (includes targeted exams where dose is matched to clinical indication); or iterative reconstruction. COMPARISON: 1. CT abdomen pelvis wo con [id number] 02/05/2022 2:[address] angio chest w abd pel w con 02/01/2022 2:11 PM RADIATION DOSE METRICS: Total DLP (mGy-cm): 769.13 FINDINGS: Liver: The liver is normal in size and contour. Gallbladder and bile ducts: The gallbladder is surgically absent. Pancreas: The pancreas appears normal. Spleen: Splenule again noted near the superior margin of the left adrenal gland. The spleen appears normal. Adrenal glands: The adrenal glands appear normal. Kidneys and ureters: 3 mm stone in the lower pole the right kidney. No ureteral stones. No perinephric or periureteral fat stranding. No signs of urinary obstruction. Stomach and bowel: The stomach is unremarkable. The small bowel loops are not abnormally dilated. The large bowel loops are not abnormally dilated. Appendix: The appendix is surgically absent. Intraperitoneal space: Postsurgical changes in the left inguinal region. Vasculature: The aorta is nonaneurysmal. The IVC appears normal. Lymph nodes: There are no enlarged lymph nodes. Urinary bladder: The urinary bladder is not well distended, therefore not well evaluated. Reproductive: The uterus is surgically absent. Bones/joints: Degenerative disc disease at L4-L5. Fusion of the T11 and T12 vertebral bodies. Soft tissues: Unremarkable. CT/CT abdomen pelvis wo con [id number] IMPRESSION: 1. No acute abdominopelvic abnormality identified. 2. Right-sided nephrolithiasis. No signs of urinary obstruction. COMMENTS: Evaluation of solid organs and vascular structures is limited as no IV contrast was administered.
--- NOTE | 2022-03-03 01:49 | ED_ITS ---
HPI - Abdominal Pain General: Chief Complaint: Abdominal Pain Stated Complaint: ABD Pain Time Seen by Provider: 03/03/22 01:48 History of Present Illness: Ms. Wilhelm is a 56-year-old lady with complex past medical history presenting to the ER for worsening abdominal pain associated wi th reported history of diverticulitis. She reports worsening of symptoms for approximately 1 week. Severe sharp and stabbing with cramps and multiple episodes of nonbilious and nonbloody emesis associated with watery diarrhea. She reports being evaluated in the [facility] ER approximately 1 week ago and diagnosed with diverticulitis however she was not placed on antibiotics. She has tried home treatment without significant relief. Course is worsened. She has had issues with chronic abdominal pain in the past. No other specific changes in health, exacerbating, or alleviating factors identified. Onset (ago): week(s) Pain Consistency: constant Location: Diffuse Quality: cramping, stabbing and sharp Radiation: none Migration to: no migration Exacerbating factors: eating, vomiting and movement Associated Symptoms: Reports chills, GI cramping, diarrhea, nausea and vomiting Treatments prior to arrival: antacids and other Related Data: Date of Last Menstrual Period: 06/19/95 Review of Systems General: Reports: 10 or more systems reviewed and unremarkable except in HPI and below Const: Reports: chills GI: Reports: nausea, vomiting, diarrhea and GI cramping COUNTS INCLUDE 234 BEDS AT THE [facility] ED PFSH: Medical History Bladder stone Borderline personality disorder Cannabis dependence, uncomplicated Chronic anxiety Chronic back pain greater than 3 months duration Chronic gastritis without bleeding COPD (chronic obstructive pulmonary disease) Cystitis cystica Dysphagia Esophageal stricture Foreign body in bladder GERD without esophagitis Neurogenic bladder Opioid dependence, uncomplicated Psychiatric care Restrictive lung disease Schizoaffective disorder, bipolar type Tardive dyskinesia Urgency incontinence Surgical History H/O bladder repair surgery MESH REPAIR H/O colonoscopy with polypectomy H/O esophagogastroduodenoscopy (09/21/20) H/O: hysterectomy History of appendectomy History of breast biopsy History of foot surgery sx in 2009. Screws placed by Dr. Don. History of ureter stent Hx of cholecystectomy S/P bronchoscopy with biopsy Family History Mother No problems noted. Father No problems noted. Other Asthma Cancer Diabetes Heart disease Social History Smoking and tobacco status: current every day smoker (0.5 ppd, started at age 27) cigarettes Packs smoked per day: 1 Years cigarettes smoked: 20 [ Other cigarette details: Hx of 1 PPD x 20 Years, started at age 27] Quit status (tobacco): considering quitting Second hand smoke exposure: Yes Smoking risk assessment/counseling performed?: No Alcohol intake: never Counseling given: No Counseling given: No Lives independently: Yes Household members: spouse Marital status: Number of children: 3 Current occupational status: disabled History of recent travel: No Current gender identity: Female Female Reproductive History: Date of last menstrual period: 06/19/95 Physical Exam Const: COMMON NORMALS: alert GENERAL APPEARANCE: cooperative and well developed HENMT: COMMON NORMALS: normocephalic and atraumatic HEAD & SCALP: no rmocephalic and atraumatic Eye: COMMON NORMALS: conjunctivae normal CONJUNCTIVA: Yes conjunctivae normal SCLERA: sclerae normal Neck/C-Spine: COMMON NORMALS: supple GENERAL: Yes trachea midline Resp: COMMON NORMALS: normal respiratory effort EFFORT & INSPECTION: Yes able to speak in complete sentences Cardio: COMMON NORMALS: regular rate and regular rhythm RATE: regular rate RHYTHM: regular rhythm GI: COMMON NORMALS: Soft to palpation PALPATION: Yes Soft to palpation, Yes Tenderness to palpation present (GI), No Guarding due to palpation present (GI) and No Rigid due to palpation Extremity: GENERAL: Yes normal exam except as noted and No edema Neuro: COMMON NORMALS: moves all extremities SENSORIUM/ORIENTATION: Yes alert and No Orientation impaired Psych: COMMON NORMALS: mental status grossly normal and Normal thought process present THOUGHT PROCESS: Normal thought process present Course ED course: - Patient was seen and evaluated by me at bedside - Patient placed on cardiac monitors, IV access obtained - Initial evaluation notable for exam as above - Labs and xrays personally interpreted by me -Antiemetic, analgesia, GI cocktail given - Labs notable for mild leukocytosis, normal hemoglobin. Metabolic panel appears similar to baseline. - Imaging notable for no evidence of diverticulitis or other worsening intra-abdominal pathology. - Upon serial reexamination after treatment the patient was improved - Based on patient history, evaluation, and testing as interpreted the most likely cause of the patient's condition is chronic abdominal pain associated with nausea, vomiting, diarrhea of uncertain etiology. - The results of ED evaluation were discussed with the patient including prescriptions and/or symptomatic cares (if applicable) including appropriate and responsible use, followup plan, and return precautions. The patient verbalized understanding and felt safe for discharge. - Patient discharged in satisfactory condition. Note: Click bubbles or prepopulated cortes in note writing are used for assistance with data collection and billing and are inherently more limited than narrative and other text portions of this note. Please use narrative for additional clinical history and defer to narrative/free test for any case of contradictory information. If information appears in only free text or click bubble it should be considered present or absent as reported. Please contact note aligner typewriter for clarifications of clinical information or contradictory information. MDM is a brief summary, contradictory or erroneous seeming information should be clarified and full note should be reviewed. Vital Signs: Vital signs: Vital Signs Temperature 98.6 F 03/02/22 20:49 Pulse Rate 97 03/02/22 20:49 Respiratory Rate 16 03/02/22 20:49 Blood Pressure 113/76 03/02/22 20:49 Pulse Oximetry 96 03/02/22 20:49 Oxygen Delivery Me thod 03/02/22 20:49 MDM - Abdominal Pain Medical Decision Making 56-year-old lady presenting with worsening abdominal pain associated with nausea, vomiting, diarrhea. ED evaluation largely unremarkable, CT scan without acute pathology requiring intervention. Satisfactory for outpatient management given improvement in symptoms Medical Records I reviewed the patient's medical records. Lab Data I reviewed the patient's lab results. : 03/02/22 19:22 03/02/22 19:22 Labs/Radiology: Radiology Impressions Abdomen/Pelvis CT 03/03/22 00:48 IMPRESSION: 1. No acute abdominopelvic abnormality identified. 2. Right-sided nephrolithiasis. No signs of urinary obstruction. COMMENTS: Evaluation of solid organs and vascular structures is limited as no IV contrast was administered. Laboratory Results WBC 11.9 10^3/uL (4.0-10.0) H 03/02/22 19:22 RBC 4.59 10^6/uL (4.1-5.3) 03/02/22 19:22 Hgb 14.5 g/dL (11.5-15.3) 03/02/22: Hct 43.7 % (37.0-47.0) 03/02/22: MCV 95.2 fl (81-99) 03/02/22 19: MCH 31.6 pg (28.0-34.0) 03/02/22: MCHC 33.2 g/dL (30.0-36.0) 03/02/22: RDW 14.4 % (12.1-15.1) 03/02/22: Plt Count 247 10^3/cmm (130-400) 03/02/22: MPV 10.3 fL (7.4-10.4) 03/02/22: Neut % (Auto) 68.2 % 03/02/22: Lymph % (Auto) 20.3 % 03/02/22: [place] % (Auto) 7.6 % 03/02/22: Eos % (Auto) 2.9 % 03/02/22: Baso % (Auto) 0.6 % 03/02/22: Neut # (Auto) 8.09 10^3/uL (1.8-7.7) H 03/02/22: Lymph # (Auto) 2.4 10^3/uL (0.8-4.8) 03/02/22: [place] # (Auto) 0.9 10^3/uL (0.2-0.9) 03/02/22: Eos # (Auto) 0.3 10^3/uL (0.0-0.8) 03/02/22: Baso # (Auto) 0.1 10^3/uL (0.0-0.1) 03/02/22: Nucleated RBC % (auto) 0 % 03/02/22 Nucleated RBCs # 0.0 /100WBC 03/02/22: Sodium 140 mmol/L (136-145) 03/02/22: Potassium 3.7 mmol/L (3.5-5.1) 03/02/22: Chloride 106 mmol/L (98-107) 03/02/22 19: Carbon Dioxide 22 mmol/L (22-29) 03/02/22 19: Anion Gap 15.7 (5-19) 03/02/22 19: BUN 12 mg/dL (6-20) 03/02/22 19: Creatinine 1.0 mg/dL (0.5-0.9) H 03/02/22 19: GFR Calculation 57.8 mL/min (90-130) L 03/02/22: Glucose 94 mg/dL (65-115) 03/02/22 19: Calculated Osmolality 290 mOsm/kg (285-295) 03/02/22: Lactate 1.5 mmol/L (0.5-2.2) 03/02/22: Calcium 9.3 mg/dL (8.5-10.5) 03/02/22: Total Bilirubin 0.2 mg/dL (0.15-1.2) 03/02/22: AST 11 U/L (0-32) 03/02/22: ALT 11 U/L (0-33) 03/02/22 19: Alkaline Phosphatase 141 U/L (35-105) H 03/02/22: Total Protein 6.9 g/dL (6.6-8.7) 03/02/22: Albumin 3.9 g/dL (3.5-5.2) 03/02/22: Globulin 3.0 g/dL (1.3-4.6) 03/02/22: Lipase 27 U/L (13-60) 03/02/22 19: Urine Color Yellow (Yellow) 03/02/22 21:00 Urine Appearance Cloudy (CLEAR) 03/02/22 21:00 Urine pH 6 (5-7) 03/02/22 21:00 Ur Specific [place] 1.020 (1.005-1.030) 03/02/22 21:00 Urine Protein Neg (Negative) 03/02/22 21:00 Urine Glucose (UA) Norm (Normal) 03/02/22 21:00 Urine Ketones 1+ (Negative) H 03/02/22 21:00 Urine Blood Neg (Negative) 03/02/22 21:00 Urine Nitrate Negative (Negative) 03/02/22 21:00 Urine Bilirubin Neg (Negative) 03/02/22 21:00 Urine Urobilinogen 1 mg/dL (Negative) H 03/02/22 21:00 Ur Leukocyte Esterase Trace (Negative) H 03/02/22 21:00 Urine RBC 0-4 /hpf (0-2) H 03/02/22 21:00 Urine WBC 0-4 /hpf (0-5) H 03/02/22 21:00 Ur Squamous Epith Cells 0-4 /hpf (0-5) H 03/02/22 21:00 Amorphous Sediment Not Reportable 03/02/22 21:00 Urine Bacteria Trace /hpf (NONE) 03/02/22 21:00 Urine Mucus 2+ /hpf 03/02/22 21:00 Discharge Plan Discharge Patient Disposition: Home Clinical Impression: Abdominal pain, Nausea vomiting and diarrhea Condition: Stable Prescriptions: New ondansetron 4 mg tablet,disintegrating 4 mg PO Q8H PRN (Reason: nausea and vomiting) Qty: 15 0RF No Action sucralfate [Carafate] 1 gram tablet 1 g PO .4x daily quetiapine [Seroquel] 100 mg tablet 150 mg PO .HS Qty: 45 2RF citalopram 20 mg tablet 40 mg PO BEDTIME@21 Qty: 60 0RF fluticasone propionate 50 mcg/actuation spray,suspension 1 spray intranasal BID PRN (Reason: Allergy Symptoms) Qty: 16 1RF lamotrigine 200 mg tablet 200 mg PO DAILY@06 Qty: 30 1RF Ingrezza 80 mg capsule 80 mg PO DAILY@06 Qty: 30 2RF albuterol sulfate 90 mcg/actuation HFA aerosol inhaler 2 puff inhalation Q6H PRN (Reason: shortness of breath or wheezing) acetaminophen 500 mg Tablet 1,000 mg PO Q6H PRN (Reason: Pain) famotidine 20 mg tablet 20 mg PO DAILY@06 ondansetron 4 mg tablet,disintegrating 4 mg PO Q8H PRN (Reason: nausea and vomiting) Qty: 15 0RF clonidine HCl 0.1 mg tablet 0.1 mg PO BID PRN (Reason: blood pressure/withdrawal) buprenorphine-naloxone 2-0.5 mg Tablet, Sublingual 0.5 tab SUBLINGUAL DAILY@06 Trelegy Ellipta 200-62.5-25 mcg blister with device 1 ea inhalation DAILY@06 Rx Instructions: STOP BREO AND IPRATROPIUM fluconazole 100 mg tablet 100 mg PO DAILY Qty: 7 0RF nystatin 100,000 unit/gram powder 1 applic topical BID Qty: 30 0RF Rx Instructions: apply locally to B/L groin folds pantoprazole 40 mg tablet,delayed release (DR/EC) 40 mg PO DAILY@06 dicyclomine 10 mg capsule 10 mg PO TID Qty: 60 0RF ondansetron 4 mg tablet,disintegrating 4 mg PO Q6H PRN (Reason: nausea and vomiting) Qty: 14 0RF Pepcid 20 mg tablet 20 mg PO BID PRN (Reason: abdominal pain) 10 Days Qty: 20 0RF ondansetron 4 mg tablet,disintegrating 4 mg PO TID PRN (Reason: nausea and vomiting) 4 Days Qty: 12 0RF Maalox Advanced 1,000-60 mg tablet,chewable 1 tab PO TID PRN (Reason: abdominal pain) 7 Days Qty: 21 0RF Discharge Orders: Discharge ED (Routine); Ordered 03/03/22 Ordered By: Anshul Ames Referrals: Gordo Feng, [Primary Care Provider] - Discharge Diet: Advance as tolerated and Clear Liquid Discharge Activity: Increase activity as tolerated Patient Instructions: Diet for Stomach Ulcers and Gastritis (ED), Acute Nausea and Vomiting (ED), Abdominal Pain (ED), Pain Management Activity Restrictions/Additional Instructions: Thank you for visiting the emergency department. You were seen evaluated for abdominal pain associate with nausea, vomiting, and diarrhea. The exact cause of your symptoms is unclear though does not appear to need hospitalization at this time. I recommend outpatient follow-up with gastroenterology as well as continued use of your current medication regimen. I recommend clear liquid diet with slow advance as tolerated avoiding spicy migue ds or other foods that can upset ulcers. Return to the emergency department for worsening symptoms or anything else that you are concerned about a feel needs emergency department evaluation. Coding Level of Care Code ED Leak Hunter for Shellie Fwd Exam Comprehensive
[2022-03-03] MEDS: lidocaine 2% viscous 15 ML, aluminum-mag hydrox-simethicon 30 ML, sucralfate oral liq 1 GM PO (03:06)
[2022-03-03] MEDS: morphine 4 mg/mL SDV 1 mL IVP (03:06)
[2022-03-03] MEDS: ondansetron 2 mg/ML SDV 2 mL 4 MG IVP (03:06)
[2022-03-03 04:29] VITALS: BP 138/70; PULSE 90; RESP 16; O2SAT 96
== END 2022-03-03 04:42 | disposition home or self-care (01) ==
PROVIDERS: Emergency Medicine; Emergency Provider Emergency Medicine; PCP Electrodiagnostic Medicine
DX: R10.9 Unspecified abdominal pain (principal); R11.2 Nausea with vomiting, unspecified; R19.7 Diarrhea, unspecified; J44.9 Chronic obstructive pulmonary disease, unspecified; F17.210 Nicotine dependence, cigarettes, uncomplicated
CPT/HCPCS: 36415; 74176; 80053; 81001; 83605; 83690; 85025; 96374; 96375; 99285; J2270; J2405

== ENCOUNTER 2022-03-06 19:15 | Emergency (ER) | payer MEDICARE, MEDICAID, SELFPAY ==
[2022-03-06] VITALS (7 sets, daily range): BP systolic 107–108; BP diastolic 75–76; PULSE 76–100; RESP 14–18; TEMP 36.7; O2SAT 93–95; BMI 31.6
--- NOTE | 2022-03-06 19:19 | ECG_ITS ---
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 Measurements Intervals [place] Rate: 92 P: 54 MT: 139 QRS: 0 QRSD: 105 T: 43 QT: 385 QTc: 477 Interpretive Statements SINUS RHYTHM INTERPRETATION BASED ON A DEFAULT AGE OF 40 YEARS Compared to ECG 02/01/2022 17:10:43 No significant changes Electronically Signed On 03-07-2022 7:35:25 CDT by Temo Tony M.D. [id number]
--- NOTE | 2022-03-06 19:30 | XRR_ITS ---
PROCEDURE INFORMATION: Exam: XR Chest Exam date and time: 03/06/2022 7:35 PM Age: 56 years old Clinical indication: Chest wall pain; Additional info: Chest pain TECHNIQUE: Imaging protocol: Radiologic exam of the chest. Views: 1 view. COMPARISON: CR XR chest 1V portable [id number] 02/04/2022 12:12 PM FINDINGS: Lungs: Unremarkable. No consolidation. Pleural spaces: Unremarkable. No pleural effusion. No pneumothorax. Heart/Mediastinum: Unremarkable. No cardiomegaly. Bones/joints: Unremarkable. XR/XR chest 1V portable [id number] IMPRESSION: No acute findings.
[2022-03-06 19:37] LABS: Basophils # 0.1 10^3/uL (0.0-0.1); Eosinophils # 0.2 10^3/uL (0.0-0.8); Eosinophils % 2.3 %; Hematocrit 42.9 % (37.0-47.0); Hemoglobin 13.9 g/dL (11.5-15.3); Lymphocytes % 28.5 %; Mean Corpuscular HGB Conc 32.4 g/dL (30.0-36.0); Mean Corpuscular Hemoglobin 30.9 pg (28.0-34.0); Mean Corpuscular Volume 95.3 fl (81-99); Mean Platelet Volume 10.2 fL (7.4-10.4); Monocytes # 0.7 10^3/uL (0.2-0.9); Monocytes % 9.6 %; Neutrophils # 4.14 10^3/uL (1.8-7.7); Neutrophils % 58.2 %; Nucleated Red Blood Cells % 0 %; Platelet Count 195 10^3/cmm (130-400); White Blood Count 7.1 10^3/uL (4.0-10.0)
--- NOTE | 2022-03-06 19:38 | W.ED.CHESTPA ---
HPI - Chest Pain General: Chief Complaint: Chest Pain Stated Complaint: CP Time Seen by Provider: 03/06/22 19:22 Source: patient and EMS History of Present Illness: 56-year-old female well-known to the emergency department. She presents this time with chest discomfort that she says started about an hour prior to arrival. She notes that she had been feeling well prior, and stood up suddenly from her chair and chest pain suddenly started at that point. It radiated into her left arm and into her back. She has a history of chronic abdominal pain that is recurrent. She notes that she had been recently diagnosed with diverticulitis in [place], but was not placed on any treatment for that. Following that diagnosis, she was seen here on 03/03 and scanned, with no evidence on CT scan of the abdomen pelvis of diverticulitis. She did chew 4 baby aspirin at home. She was not given anything by EMS MD complaint: chest pain Onset (ago): minute(s) Timing of current episode: still present Pain location: substernal Relieving factors: nothing Associated symptoms: Reports nausea; Deny abdominal pain (She notes this has not been hurting her for a few days), dyspnea, fever(s) or vomiting Risk Factors: Coronary artery disease risk factors: smoking history Review of Systems Const: Denies: fever(s) Eyes: Denies: change in vision ENMT: Denies: throat pain Card: Reports: chest pain Resp: Reports: wheezing; Denies: dyspnea, productive cough or non-productive cough GI: Reports: nausea; Denies: abdominal pain (She notes this has not been hurting her for a few days) or vomiting Musc: Reports: back pain Neuro: Denies: headache(s) PFS ED PFSH: Medical History Bladder stone Borderline personality disorder Cannabis dependence, uncomplicated Chronic anxiety Chronic back pain greater than 3 months duration Chronic gastritis without bleeding COPD (chronic obstructive pulmonary disease) Cystitis cystica Dysphagia Esophageal stricture Foreign body in bladder GERD without esophagitis Neurogenic bladder Opioid dependence, uncomplicated Psychiatric care Restrictive lung disease Schizoaffective disorder, bipolar type Tardive dyskinesia Urgency incontinence Surgical History H/O bladder repair surgery MESH REPAIR H/O colonoscopy with polypectomy H/O esophagogastroduodenoscopy (09/21/20) H/O: hysterectomy History of appendectomy History of breast biopsy History of foot surgery sx in 2009. Screws placed by Dr. Don. History of ureter stent Hx of cholecystectomy S/P bronchoscopy with biopsy Family History Mother No problems noted. Father No problems noted. Other Asthma Cancer Diabetes Heart disease Social History Smoking and tobacco status: current every day smoker (0.5 ppd, started at age 27) cigarettes Packs smoked per day: 1 Years cigarettes smoked: 20 [ Other cigarette details: Hx of 1 PPD x 20 Years, started at age 27] Quit status (tobacco): considering quitting Second hand smoke exposure: Yes Smoking risk assessment/counseling performed?: No Alcohol intake: never Counseling given: No Counseling given: No Lives independently: Yes Household members: spouse Marital status: Number of children: 3 Current occupational status: disabled History of recent travel: No Current gender identity: Female Female Reproductive History: Date of last menstrual period: 06/19/95 Physical Exam Const: COMMON NORMALS: no acute distress GENERAL APPEARANCE: cooperative; not ill appearing HENMT: COMMON NORMALS: normocephalic, atraumatic and Normal external nose present HEAD & SCALP: normocephalic and atraumatic FACE & SINUS: normal facial exam NOSE: Normal external nose present Eye: COMMON NORMALS: Equal, round and reactive pupils present and EOMs intact bilaterally PUPIL: Yes Equal, round and reactive pupils present Chest: CHEST: Yes Symmetrical chest wall rise Resp: COMMON NORMALS: normal respiratory effort and No use of accessory muscles AUSCULTATION: wheezes Cardio: COMMON NORMALS: regular rate and regular rhythm RATE: regular rate RHYTHM: regular rhythm GI: COMMON NORMALS: Normal to inspection, nondistended, normoactive bowel sounds present, Soft to palpation and non-tender PALPATION: Yes Soft to palpation Extremity: COMMON NORMALS: no pedal edema Neuro: JEANINE COMA SCALE: document GCS findings Jeanine coma scale eye opening: Spontaneous Jeanine coma scale verbal response: Orientated Jeanine coma scale motor response: Obey commands Jeanine coma scale total score: 15 Course Vital Signs: Vital signs: Vital Signs Temperature 98.0 F 03/06/22 19:17 Pulse Rate 100 03/06/22 20:55 Respiratory Rate 16 03/06/22 20:55 Blood Pressure 108/76 03/06/22 20:55 Pulse Oximetry 94 03/06/22 20:55 Oxygen Delivery Me thod 03/06/22 20:42 MDM - Chest Pain Medical Decision Making Latesha is feeling much improved after GI cocktail, breathing treatment, and morphine. Her EKG is normal. She has a normal sinus rhythm with normal intervals and axis, rate of 90, and no ST changes. Her troponin is 6. CBC is normal. BMP is essentially normal. Chest x-ray shows no acute findings. She is wheezing, which is why DuoNeb was ordered. She may have suffered for some bronchospasm. She is encouraged to use her albuterol. She will be allowed discharge. Lab Data : 03/06/22 19:30 03/06/22 19: Radiology Impressions Chest X-Ray 03/06/22: IMPRESSION: No acute findings. Laboratory Results WBC 7.1 10^3/uL (4.0-10.0) 03/06/22 19: RBC 4.50 10^6/uL (4.1-5.3) 03/06/22: Hgb 13.9 g/dL (11.5-15.3) 03/06/22: Hct 42.9 % (37.0-47.0) 03/06/22: MCV 95.3 fl (81-99) 03/06/22 19: MCH 30.9 pg (28.0-34.0) 03/06/22: MCHC 32.4 g/dL (30.0-36.0) 03/06/22 19: RDW 14.0 % (12.1-15.1) 03/06/22: Plt Count 195 10^3/cmm (130-400) 03/06/22: MPV 10.2 fL (7.4-10.4) 03/06/22 19: Neut % (Auto) 58.2 % 03/06/22: Lymph % (Auto) 28.5 % 03/06/22: [place] % (Auto) 9.6 % 09/18/22 19:30 Eos % (Auto) 2.3 % 03/06/22 19:30 Baso % (Auto) 1.0 % 03/06/22 19:30 Neut # (Auto) 4.14 10^3/uL (1.8-7.7) 03/06/22 19:30 Lymph # (Auto) 2.0 10^3/uL (0.8-4.8) 03/06/22 19:30 [place] # (Auto) 0.7 10^3/uL (0.2-0.9) 03/06/22 19:30 Eos # (Auto) 0.2 10^3/uL (0.0-0.8) 03/06/22 19: Baso # (Auto) 0.1 10^3/uL (0.0-0.1) 03/06/22 19:30 Nucleated RBC % (auto) 0 % 03/06/22: Nucleated RBCs # 0.0 /100WBC 03/06/22 19: Sodium 140 mmol/L (136-145) 03/06/22 19: Potassium 3.6 mmol/L (3.5-5.1) 03/06/22 19: Chloride 105 mmol/L (98-107) 03/06/22 19: Carbon Dioxide 22 mmol/L (22-29) 03/06/22: Anion Gap 16.6 (5-19) 03/06/22 19:30 BUN 12 mg/dL (6-20) 03/06/22 19: Creatinine 1.0 mg/dL (0.5-0.9) H 03/06/22 19: GFR Calculation 57.8 mL/min (90-130) L 03/06/22 19:30 Glucose 116 mg/dL (65-115) H 03/06/22 19:30 Calculated Osmolality 291 mOsm/kg (285-295) 03/06/22: Calcium 9.0 mg/dL (8.5-10.5) 03/06/22 19:30 Total Bilirubin 0.2 mg/dL (0.15-1.2) 03/06/22 19:30 AST 11 U/L (0-32) 03/06/22:30 ALT 9 U/L (0-33) 03/06/22 19:30 Alkaline Phosphatase 133 U/L (35-105) H 03/06/22 19:30 Creatine Kinase 29 U/L (26-192) 03/06/22 19:30 Troponin T Baseline 6 ng/L (0-10) 03/06/22 19:30 NT-Pro-B Natriuret Pep 81 pg/mL (0-125) 03/06/22 19:30 Total Protein 6.6 g/dL (6.6-8.7) 03/06/22 19:30 Albumin 4.0 g/dL (3.5-5.2) 03/06/22 19:30 Globulin 2.6 g/dL (1.3-4.6) 03/06/22 19:30 Discharge Plan Discharge Patient Disposition: Home Clinical Impression: Chest pain, Bilateral wheezing Condition: Stable Prescriptions: No Action sucralfate [Carafate] 1 gram tablet 1 g PO .4x daily quetiapine [Seroquel] 100 mg tablet 150 mg PO .HS Qty: 45 2RF citalopram 20 mg tablet 40 mg PO BEDTIME@21 Qty: 60 0RF fluticasone propionate 50 mcg/actuation spray,suspension 1 spray intranasal BID PRN (Reason: Allergy Symptoms) Qty: 16 1RF lamotrigine 200 mg tablet 200 mg PO DAILY@06 Qty: 30 1RF Ingrezza 80 mg capsule 80 mg PO DAILY@06 Qty: 30 2RF albuterol sulfate 90 mcg/actuation HFA aerosol inhaler 2 puff inhalation Q6H PRN (Reason: shortness of breath or wheezing) acetaminophen 500 mg Tablet 1,000 mg PO Q6H PRN (Reason: Pain) famotidine 20 mg tablet 20 mg PO DAILY@06 ondansetron 4 mg tablet,disintegrating 4 mg PO Q8H PRN (Reason: nausea and vomiting) Qty: 15 0RF clonidine HCl 0.1 mg tablet 0.1 mg PO BID PRN (Reason: blood pressure/withdrawal) buprenorphine-naloxone 2-0.5 mg Tablet, Sublingual 0.5 tab SUBLINGUAL DAILY@06 Trelegy Ellipta 200-62.5-25 mcg blister with device 1 ea inhalation DAILY@06 Rx Instructions: STOP BREO AND IPRATROPIUM fluconazole 100 mg tablet 100 mg PO DAILY Qty: 7 0RF nystatin 100,000 unit/gram powder 1 applic topical BID Qty: 30 0RF Rx Instructions: apply locally to B/L groin folds pantoprazole 40 mg tablet,delayed release (DR/EC) 40 mg PO DAILY@06 dicyclomine 10 mg capsule 10 mg PO TID Qty: 60 0RF ondansetron 4 mg tablet,disintegrating 4 mg PO Q6H PRN (Reason: nausea and vomiting) Qty: 14 0RF Pepcid 20 mg tablet 20 mg PO BID PRN (Reason: abdominal pain) 10 Days Qty: 20 0RF ondansetron 4 mg tablet,disintegrating 4 mg PO Q8H PRN (Reason: nausea and vomiting) Qty: 15 0RF Discharge Orders: Discharge ED (Routine); Ordered 03/06/22 Ordered By: Chivo Deleon Referrals: Gordo Feng DO [Primary Care Provider] - 4-7 days Patient Instructions: Chest Pain (ED), Bronchospasm (ED), Opioid Safety, Pain Management Activity Restrictions/Additional Instructions: Use your albuterol scheduled every 4 hours while awake for the next 24 hours, then as needed. Return for any worsening symptoms. 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
[2022-03-06] MEDS: ondansetron 2 mg/ML SDV 2 mL 4 MG IVP (19:39)
[2022-03-06] MEDS: morphine 4 mg/mL SDV 1 mL IVP ×2 (19:40→20:08)
[2022-03-06] MEDS: lidocaine 2% viscous 15 ML, aluminum-mag hydrox-simethicon 30 ML, sucralfate oral liq 1 GM PO (19:43)
[2022-03-06 20:06] LABS: Troponin(5th) Baseline 6 ng/L (0-10)
[2022-03-06 20:10] LABS: Alanine Aminotransferase 9 U/L (0-33); Alkaline Phosphatase 133 U/L (35-105); Anion Gap 16.6 (5-19); Aspartate Amino Transferase 11 U/L (0-32); Blood Urea Nitrogen 12 mg/dL (6-20); Carbon Dioxide 22 mmol/L (22-29); Chloride 105 mmol/L (98-107); Creatine Phosphokinase 29 U/L (26-192); Globulin 2.6 g/dL (1.3-4.6); Glomerular Filtration Rate 57.8 mL/min (90-130); Glucose 116 mg/dL (65-115); NT Pro B Type Natriuretic Pept 81 pg/mL (0-125); Osmolality Calculated 291 mOsm/kg (285-295); Potassium 3.6 mmol/L (3.5-5.1); Sodium 140 mmol/L (136-145); Total Bilirubin 0.2 mg/dL (0.15-1.2); Total Protein 6.6 g/dL (6.6-8.7)
[2022-03-06] MEDS: ipratropium-albuterol 3 mL Neb INHALATION (20:40)
== END 2022-03-06 20:56 | disposition home or self-care (01) ==
PROVIDERS: Emergency Provider Emergency Medicine; PCP Electrodiagnostic Medicine
DX: R07.9 Chest pain, unspecified (principal); R06.2 Wheezing; F17.210 Nicotine dependence, cigarettes, uncomplicated; J44.9 Chronic obstructive pulmonary disease, unspecified
CPT/HCPCS: 71045; 80053; 82550; 83880; 84484; 85025; 93005; 94640; 96374; 96375; 96376; 99285; J2270; J2405

== ENCOUNTER 2022-03-07 00:41 | Emergency (ER) | payer MEDICARE, MEDICAID, SELFPAY ==
[2022-03-07 01:08] VITALS: BP 100/63; PULSE 120; RESP 22; TEMP 36.7; O2SAT 95; BMI 31.6
--- NOTE | 2022-03-07 01:15 | ECG_ITS ---
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 Measurements Intervals [place] Rate: 99 P: 52 ID: [id number] QRS: 48 QRSD: 96 T: 58 QT: 353 QTc: 454 Interpretive Statements SINUS RHYTHM Compared to ECG 03/06/2022 19:19:09 No significant changes Electronically Signed On 03-07-2022 7:36:34 CDT by Temo Tony M.D. [id number]
[2022-03-07 01:27] VITALS: BP 122/77; PULSE 92; RESP 16; O2SAT 98
[2022-03-07] MEDS: sodium chloride 0.9% 1,000 ML 999 ML IV (02:01)
[2022-03-07 02:03] VITALS: RESP 16; O2SAT 94
[2022-03-07] MEDS: morphine 4 mg/mL SDV 1 mL IVP (02:03)
[2022-03-07] MEDS: ondansetron 2 mg/ML SDV 2 mL 4 MG IVP (02:03)
--- NOTE | 2022-03-07 21:42 | W.ED.CHESTPA ---
HPI - Chest Pain General: Chief Complaint: Chest Pain Stated Complaint: cp Time Seen by Provider: 03/07/22 01:11 Source: patient History of Present Illness: 56 year old female well known to the ER, and seen for the second time tonight due to chest pain, this time with vomiting. She noted that she was waiting for her ride in the lobby, and became nauseated. She vomited in the bathroom by her report. She checks back into the ER with nausea, epigastric pain, and vomiting. Her laboratory work up, and EKG as well as chest X-ray we're essentially normal on her prior visit. She says that she now feels dehydrated and request some IV fluids. MD complaint: chest pain Pertinent past history: other Onset (ago): hour(s) Timing of current episode: episodic Prior episodes: Yes Onset: during rest Pain location: epigastric Pain radiation: none Quality: sharp Relieving factors: nothing Exacerbating factors: nothing Associated symptoms: Reports abdominal pain, nausea and vomiting; Deny dyspnea, fever(s) or palpitations Review of Systems Const: Denies: fever(s), chills or body aches Eyes: Denies: change in vision Card: Reports: chest pain; Denies: palpitations Resp: Denies: dyspnea, productive cough, non-productive cough or wheezing GI: Reports: abdominal pain, nausea and vomiting; Denies: diarrhea or hematochezia : Denies: difficulty voiding Skin/Breast: Denies: rash Neuro: Denies: headache(s), weakness in extremities, dizziness or confusion [facility] ED PFSH: Medical History Bladder stone Borderline personality disorder Cannabis dependence, uncomplicated Chronic anxiety Chronic back pain greater than 3 months duration Chronic gastritis without bleeding COPD (chronic obstructive pulmonary disease) Cystitis cystica Dysphagia Esophageal stricture Foreign body in bladder GERD without esophagitis Neurogenic bladder Opioid dependence, uncomplicated Psychiatric care Restrictive lung disease Schizoaffective disorder, bipolar type Tardive dyskinesia Urgency incontinence Surgical History H/O bladder repair surgery MESH REPAIR H/O colonoscopy with polypectomy H/O esophagogastroduodenoscopy (09/21/20) H/O: hysterectomy History of appendectomy History of breast biopsy History of foot surgery sx in 2009. Screws placed by Dr. Don. History of ureter stent Hx of cholecystectomy S/P bronchoscopy with biopsy Family History Mother No problems noted. Father No problems noted. Other Asthma Cancer Diabetes Heart disease Social History Smoking and tobacco status: current every day smoker (0.5 ppd, started at age 27) cigarettes Packs smoked per day: 1 Years cigarettes smoked: 20 [ Other cigarette details: Hx of 1 PPD x 20 Years, started at age 27] Quit status (tobacco): considering quitting Second hand smoke exposure: Yes Smoking risk assessment/counseling performed?: No Alcohol intake: never Counseling given: No Counseling given: No Lives independently: Yes Household members: spouse Marital status: Number of children: 3 Current occupational status: disabled History of recent travel: No Current gender identity: Female Female Reproductive History: Date of last menstrual period: 06/19/95 Physical Exam Const: COMMON NORMALS: no acute distress GENERAL APPEARANCE: cooperative; not ill appearing and not frail appearing HENMT: COMMON NORMALS: normocephalic, atraumatic and Normal external nose present HEAD & SCALP: normocephalic and atraumatic FACE & SINUS: normal facial exam and face symmetric NOSE: Normal external nose present Eye: COMMON NORMALS: Equal, round and reactive pupils present and EOMs intact bilaterally PUPIL: Yes Equal, round and reactive pupils present Neck/C-Spine: GENERAL: Yes trachea midline Chest: CHEST: Yes Symmetrical chest wall rise Resp: COMMON NORMALS: normal respiratory effort, No retractions, No use of accessory muscles and clear to auscultation bilaterally AUSCULTATION: clear to auscultation bilaterally Cardio: COMMON NORMALS: regular rate and regular rhythm RATE: regular rate RHYTHM: regular rhythm GI: COMMON NORMALS: Normal to inspection, nondistended, normoactive bowel sounds present PALPATION: Yes Tenderness to palpation present (GI) (diffuse) Extremity: COMMON NORMALS: no pedal edema Neuro: JEANINE COMA SCALE: document GCS findings Jeanine coma scale eye opening: Spontaneous Jeanine coma scale verbal response: Orientated [place] coma scale motor response: Obey commands Jeanine coma scale total score: 15 SENSORY EXAM: Yes extremities (intact) Psych: COMMON NORMALS: speech normal SPEECH: Yes normal speech Skin: COMMON NORMALS: no rashes or lesions noted GENERAL SKIN EXAM: no rashes or lesions noted Course Vital Signs: Vital signs: Vital Signs Temperature 98.0 F 03/07/22 01:08 Pulse Rate 92 03/07/22 01:27 Respiratory Rate 16 03/07/22 02:03 Blood Pressure 122/77 03/07/22 01:27 Pulse Oximetry 94 03/07/22 02:03 Oxygen Delivery Me thod 03/07/22 01:27 MDM - Chest Pain Medical Decision Making Concha?s EKG yet again is completely normal. she has gotten Iv fluids, morphine and Zofran. She's feeling better, and ready to be discharged, for the second time. Laboratory work up was not considered necessary, as again she had had it about two hours prior. Discharge Plan Discharge Patient Disposition: Home Clinical Impression: Vomiting Condition: Stable Prescriptions: No Action sucralfate [Carafate] 1 gram tablet 1 g PO .4x daily quetiapine [Seroquel] 100 mg tablet 150 mg PO .HS Qty: 45 2RF citalopram 20 mg tablet 40 mg PO BEDTIME@21 Qty: 60 0RF fluticasone propionate 50 mcg/actuation spray,suspension 1 spray intranasal BID PRN (Reason: Allergy Symptoms) Qty: 16 1RF lamotrigine 200 mg tablet 200 mg PO DAILY@06 Qty: 30 1RF Ingrezza 80 mg capsule 80 mg PO DAILY@06 Qty: 30 2RF albuterol sulfate 90 mcg/actuation HFA aerosol inhaler 2 puff inhalation Q6H PRN (Reason: shortness of breath or wheezing) acetaminophen 500 mg Tablet 1,000 mg PO Q6H PRN (Reason: Pain) famotidine 20 mg tablet 20 mg PO DAILY@06 ondansetron 4 mg tablet,disintegrating 4 mg PO Q8H PRN (Reason: nausea and vomiting) Qty: 15 0RF clonidine HCl 0.1 mg tablet 0.1 mg PO BID PRN (Reason: blood pressure/withdrawal) buprenorphine-naloxone 2-0.5 mg Tablet, Sublingual 0.5 tab SUBLINGUAL DAILY@06 Trelegy Ellipta 200-62.5-25 mcg blister with device 1 ea inhalation DAILY@06 Rx Instructions: STOP BREO AND IPRATROPIUM fluconazole 100 mg tablet 100 mg PO DAILY Qty: 7 0RF nystatin 100,000 unit/gram powder 1 applic topical BID Qty: 30 0RF Rx Instructions: apply locally to B/L groin folds pantoprazole 40 mg tablet,delayed release (DR/EC) 40 mg PO DAILY@06 dicyclomine 10 mg capsule 10 mg PO TID Qty: 60 0RF ondansetron 4 mg tablet,disintegrating 4 mg PO Q6H PRN (Reason: nausea and vomiting) Qty: 14 0RF Pepcid 20 mg tablet 20 mg PO BID PRN (Reason: abdominal pain) 10 Days Qty: 20 0RF ondansetron 4 mg tablet,disintegrating 4 mg PO Q8H PRN (Reason: nausea and vomiting) Qty: 15 0RF Discharge Orders: Discharge ED (Routine); Ordered 03/07/22 Ordered By: Chivo Deleon Referrals: Gordo Feng DO [Primary Care Provider] - Patient Instructions: Opioid Safety, Pain Management, Vomiting - Adult Coding Level of Care Code ED Registered Pharmacy Technician for Shellie Guallpa
== END 2022-03-07 02:50 | disposition home or self-care (01) ==
PROVIDERS: Emergency Provider Emergency Medicine; PCP Electrodiagnostic Medicine
DX: R11.11 Vomiting without nausea (principal); F17.210 Nicotine dependence, cigarettes, uncomplicated; J44.9 Chronic obstructive pulmonary disease, unspecified
CPT/HCPCS: 93005; 96361; 96374; 96375; 99284; J2270; J2405; J7030

== ENCOUNTER 2022-03-16 20:40 | Emergency (ER) | payer MEDICARE, MEDICAID, SELFPAY ==
[2022-03-16 21:04] VITALS: BMI 32.1
[2022-03-16 21:08] VITALS: BP 107/70; PULSE 98; RESP 16; TEMP 36.6; O2SAT 97
[2022-03-16 23:17] LABS: Basophils # 0.1 10^3/uL (0.0-0.1); Basophils % 0.8 %; Eosinophils # 0.1 10^3/uL (0.0-0.8); Eosinophils % 0.9 %; Hematocrit 44.7 % (37.0-47.0); Hemoglobin 14.7 g/dL (11.5-15.3); Lymphocytes # 2.5 10^3/uL (0.8-4.8); Lymphocytes % 17.7 %; Mean Corpuscular HGB Conc 32.9 g/dL (30.0-36.0); Mean Corpuscular Hemoglobin 31.2 pg (28.0-34.0); Mean Corpuscular Volume 94.9 fl (81-99); Mean Platelet Volume 10.6 fL (7.4-10.4); Monocytes # 0.9 10^3/uL (0.2-0.9); Neutrophils # 10.57 10^3/uL (1.8-7.7); Neutrophils % 74.2 %; Nucleated Red Blood Cells % 0 %; Platelet Count 209 10^3/cmm (130-400); Red Blood Count 4.71 10^6/uL (4.1-5.3); Red Cell Distribution Width 13.5 % (12.1-15.1); White Blood Count 14.3 10^3/uL (4.0-10.0)
--- NOTE | 2022-03-16 23:18 | ED_ITS ---
HPI - Nausea/Vomiting/Diarrhea General: Chief complaint: Nausea/Vomiting/Diarrhea Stated complaint: n/v Time Seen by Provider: 03/16/22 21:15 Source: patient Mode of arrival: ambulatory Limitations: no limitations History of Present Illness: 56-year-old female who is very well-known to the ER for chronic abdominal pain with vomiting she states over the last 2 days she has had vomiting along with diffuse abdominal pain she rates a 2 out of 10 she denies any worsening improving factors denies any fever denies any diarrhea. Associated nausea: Yes Associated symtoms: Reports nausea; Denies chest pain, dysuria or headache(s) Review of Systems Const: Denies: fever(s), chills, body aches or change in appetite Eyes: Denies: blurry vision or eye discomfort ENMT: Denies: throat pain or dental pain Card: Denies: chest pain Resp: Denies: dyspnea GI: Reports: nausea and vomiting : Denies: dysuria Musc: Denies: neck pain or back pain Skin/Breast: Denies: rash Neuro: Denies: headache(s) Psych: Denies: depression Wilbur/Lymph: Denies: easy bruising All/Imm: Denies: urticaria PFSH ED PFSH: Medical History Bladder stone Borderline personality disorder Cannabis dependence, uncomplicated Chronic anxiety Chronic back pain greater than 3 months duration Chronic gastritis without bleeding COPD (chronic obstructive pulmonary disease) Cystitis cystica Dysphagia Esophageal stricture Foreign body in bladder GERD without esophagitis Neurogenic bladder Opioid dependence, uncomplicated Psychiatric care Restrictive lung disease Schizoaffective disorder, bipolar type Tardive dyskinesia Urgency incontinence Surgical History H/O bladder repair surgery MESH REPAIR H/O colonoscopy with polypectomy H/O esophagogastroduodenoscopy (09/21/20) H/O: hysterectomy History of appendectomy History of breast biopsy History of foot surgery sx in 2009. Screws placed by Dr. Don. History of ureter stent Hx of cholecystectomy S/P bronchoscopy with biopsy Family History Mother No problems noted. Father No problems noted. Other Asthma Cancer Diabetes Heart disease Social History Smoking and tobacco status: current every day smoker (0.5 ppd, started at age 27) cigarettes Packs smoked per day: 1 Years cigarettes smoked: 20 [ Other cigarette details: Hx of 1 PPD x 20 Years, started at age 27] Quit status (tobacco): considering quitting Second hand smoke exposure: Yes Smoking risk assessment/counseling performed?: No Alcohol intake: never Counseling given: No Counseling given: No Lives independently: Yes Household members: spouse Marital status: Number of children: 3 Current occupational status: disabled History of recent travel: No Current gender identity: Female Female Reproductive History: Date of last menstrual period: 06/19/95 Physical Exam Const: COMMON NORMALS: no acute distress, patient oriented x3 and healthy appearing HENMT: COMMON NORMALS: normocephalic and atraumatic HEAD & SCALP: normocephalic and atraumatic Eye: COMMON NORMALS: Equal, round and reactive pupils present and EOMs intact bilaterally PUPIL: Yes Equal, round and reactive pupils present Neck/C-Spine: COMMON NORMALS: full ROM and supple Chest: COMMONS NORMALS: normal inspection of the chest and normal palpation of entire chest wall Resp: COMMON NORMALS: normal respiratory effort, No retractions, No use of accessory muscles and clear to auscultation bilaterally AUSCULTATION: clear to auscultation bilaterally Cardio: COMMON NORMALS: regular rate, regular rhythm and No murmurs present (Cardio) RATE: regular rate RHYTHM: regular rhythm GI: COMMON NORMALS: Normal to inspection, nondistended, normoactive bowel sounds present, Soft to palpation, non-tender and no masses PALPATION: Yes Soft to palpation Extremity: COMMON NORMALS: normal to inspection and full ROM Neuro: COMMON NORMALS: patient oriented x3, moves all extremities and no focal motor deficits Psych: COMMON NORMALS: mental status grossly normal, Normal thought process present and cooperative THOUGHT PROCESS: Normal thought process present Skin: COMMON NORMALS: no rashes or lesions noted and no wounds GENERAL SKIN EXAM: no rashes or lesions noted Course Vital Signs: Vital signs: Vital Signs Temperature 97.9 F 03/16/22 21:08 Pulse Rate 74 03/17/22 00:37 Respiratory Rate 16 03/17/22 00:37 Blood Pressure 132/62 03/17/22 00:37 Pulse Oximetry 98 03/17/22 00:37 Oxygen Delivery Me thod 03/17/22 00:37 MDM - Nausea/Vomiting/Diarrhea Medical Decision Making Patient presents with vomiting is chronic in nature her exam here is benign she feels improved she is stable for discharge she is to follow-up with PCP and return if worsening. Lab Data : 03/16/22 23:14 03/16/22 23:14 Laboratory Results WBC 14.3 10^3/uL (4.0-10.0) H 03/16/22 23:14 RBC 4.71 10^6/uL (4.1-5.3) 03/16/22 23:14 Hgb 14.7 g/dL (11.5-15.3) 03/16/22 23:14 Hct 44.7 % (37.0-47.0) 03/16/22 23:14 MCV 94.9 fl (81-99) 03/16/22 23:14 MCH 31.2 pg (28.0-34.0) 03/16/22 23:14 MCHC 32.9 g/dL (30.0-36.0) 03/16/22 23:14 RDW 13.5 % (12.1-15.1) 03/16/22 23:14 Plt Count 209 10^3/cmm (130-400) 03/16/22 23:14 MPV 10.6 fL (7.4-10.4) H 03/16/22 23:14 Neut % (Auto) 74.2 % 03/16/22 23:14 Lymph % (Auto) 17.7 % 03/16/22 23:14 [place] % (Auto) 6.0 % 03/16/22 23:14 Eos % (Auto) 0.9 % 03/16/22 23:14 Baso % (Auto) 0.8 % 03/16/22 23:14 Neut # (Auto) 10.57 10^3/uL (1.8-7.7) H 03/16/22 23:14 Lymph # (Auto) 2.5 10^3/uL (0.8-4.8) 03/16/22 23:14 [place] # (Auto) 0.9 10^3/uL (0.2-0.9) 03/16/22 23:14 Eos # (Auto) 0.1 10^3/uL (0.0-0.8) 03/16/22 23:14 Baso # (Auto) 0.1 10^3/uL (0.0-0.1) 03/16/22 23:14 Nucleated RBC % (auto) 0 % 03/16/22 23:14 Nucleated RBCs # 0.0 /100WBC 03/16/22 23:14 Sodium 138 mmol/L (136-145) 03/16/22 23:14 Potassium 3.8 mmol/L (3.5-5.1) 03/16/22 23:14 Chloride 105 mmol/L (98-107) 03/16/22 23:14 Carbon Dioxide 21 mmol/L (22-29) L 03/16/22 23:14 Anion Gap 15.8 (5-19) 03/16/22 23:14 BUN 14 mg/dL (6-20) 03/16/22 23:14 Creatinine 1.0 mg/dL (0.5-0.9) H 03/16/22 23:14 GFR Calculation 57.8 mL/min (90-130) L 03/16/22 23:14 Glucose 105 mg/dL (65-115) 03/16/22 23:14 Calculated Osmolality 287 mOsm/kg (285-295) 03/16/22 23:14 Calcium 9.6 mg/dL (8.5-10.5) 03/16/22 23:14 Total Bilirubin 0.4 mg/dL (0.15-1.2) 03/16/22 23:14 AST 12 U/L (0-32) 03/16/22 23:14 ALT 10 U/L (0-33) 03/16/22 23:14 Alkaline Phosphatase 127 U/L (35-105) H 03/16/22 23:14 Total Protein 6.6 g/dL (6.6-8.7) 03/16/22 23:14 Albumin 4.1 g/dL (3.5-5.2) 03/16/22 23:14 Globulin 2.5 g/dL (1.3-4.6) 03/16/22 23:14 Lipase 22 U/L (13-60) 03/16/22 23:14 Discharge Plan Discharge Patient Disposition: Home Clinical Impression: Vomiting Qualifiers: Vomiting type: unspecified Nausea presence: with nausea Qualified Code(s): R11.2 - Nausea with vomiting, unspecified Condition: Stable Prescriptions: No Action sucralfate [Carafate] 1 gram tablet 1 g PO .4x daily quetiapine [Seroquel] 100 mg tablet 150 mg PO .HS Qty: 45 2RF citalopram 20 mg tablet 40 mg PO BEDTIME@21 Qty: 60 0RF fluticasone propionate 50 mcg/actuation spray,suspension 1 spray intranasal BID PRN (Reason: Allergy Symptoms) Qty: 16 1RF lamotrigine 200 mg tablet 200 mg PO DAILY@06 Qty: 30 1RF Ingrezza 80 mg capsule 80 mg PO DAILY@06 Qty: 30 2RF albuterol sulfate 90 mcg/actuation HFA aerosol inhaler 2 puff inhalation Q6H PRN (Reason: shortness of breath or wheezing) acetaminophen 500 mg Tablet 1,000 mg PO Q6H PRN (Reason: Pain) famotidine 20 mg tablet 20 mg PO DAILY@06 ondansetron 4 mg tablet,disintegrating 4 mg PO Q8H PRN (Reason: nausea and vomiting) Qty: 15 0RF clonidine HCl 0.1 mg tablet 0.1 mg PO BID PRN (Reason: blood pressure/withdrawal) buprenorphine-naloxone 2-0.5 mg Tablet, Sublingual 0.5 tab SUBLINGUAL DAILY@06 Trelegy Ellipta 200-62.5-25 mcg blister with device 1 ea inhalation DAILY@06 Rx Instructions: STOP BREO AND IPRATROPIUM fluconazole 100 mg tablet 100 mg PO DAILY Qty: 7 0RF nystatin 100,000 unit/gram powder 1 applic topical BID Qty: 30 0RF Rx Instructions: apply locally to B/L groin folds pantoprazole 40 mg tablet,delayed release (DR/EC) 40 mg PO DAILY@06 dicyclomine 10 mg capsule 10 mg PO TID Qty: 60 0RF ondansetron 4 mg tablet,disintegrating 4 mg PO Q6H PRN (Reason: nausea and vomiting) Qty: 14 0RF ondansetron 4 mg tablet,disintegrating 4 mg PO Q8H PRN (Reason: nausea and vomiting) Qty: 15 0RF Discharge Orders: Discharge ED (Routine); Ordered 03/16/22 Ordered By: Damien Urbina Referrals: Gordo Feng, [Primary Care Provider] - 1-3 days Discharge Diet: Advance as tolerated Discharge Activity: Resume usual activity Patient Instructions: Acute Nausea and Vomiting (ED) Coding Level of Care Code ED Ton Container Filler for Chg Fwd Exam Comprehensive
[2022-03-16 23:25] VITALS: RESP 16
[2022-03-16] MEDS: HYDROmorphone 1 mg/mL INJ 1 mL 0.5 MG IM (23:25)
[2022-03-16] MEDS: ondansetron 2 mg/ML SDV 2 mL 4 MG IM (23:25)
[2022-03-16 23:43] LABS: Alanine Aminotransferase 10 U/L (0-33); Albumin Level 4.1 g/dL (3.5-5.2); Alkaline Phosphatase 127 U/L (35-105); Aspartate Amino Transferase 12 U/L (0-32); Blood Urea Nitrogen 14 mg/dL (6-20); Calcium 9.6 mg/dL (8.5-10.5); Carbon Dioxide 21 mmol/L (22-29); Chloride 105 mmol/L (98-107); Globulin 2.5 g/dL (1.3-4.6); Glomerular Filtration Rate 57.8 mL/min (90-130); Glucose 105 mg/dL (65-115); Lipase 22 U/L (13-60); Osmolality Calculated 287 mOsm/kg (285-295); Sodium 138 mmol/L (136-145); Total Bilirubin 0.4 mg/dL (0.15-1.2); Total Protein 6.6 g/dL (6.6-8.7)
[2022-03-16 23:50] LABS: Anion Gap 15.8 (5-19); Potassium 3.8 mmol/L (3.5-5.1)
[2022-03-17 00:37] VITALS: BP 132/62; PULSE 74; RESP 16; O2SAT 98
== END 2022-03-17 00:47 | disposition home or self-care (01) ==
PROVIDERS: Emergency Provider Emergency Medicine; PCP Electrodiagnostic Medicine
DX: R11.2 Nausea with vomiting, unspecified (principal); F17.210 Nicotine dependence, cigarettes, uncomplicated; J44.9 Chronic obstructive pulmonary disease, unspecified
CPT/HCPCS: 80053; 83690; 85025; 96372; 99284; J1170; J2405

== ENCOUNTER 2022-03-17 03:31 | Emergency (ER) | payer MEDICARE, MEDICAID, SELFPAY ==
[2022-03-17 03:41] VITALS: BMI 32.1
--- NOTE | 2022-03-17 03:41 | ED_ITS ---
HPI - Abdominal Pain General: Chief Complaint: Abdominal Pain Stated Complaint: Vomiting\ADb Pain Time Seen by Provider: 03/17/22 03:40 Source: patient Mode of arrival: ambulatory Limitations: no limitations History of Present Illness: 56-year-old female has a history of chronic abdominal pain she states she was feeling better but while waiting in the waiting room for her ride she has had worsening pain she states that her pain is diffuse cramping in nature denies any worsening improving factors. She denies any fever denies any diarrhea. Associated Symptoms: Reports nausea; Denies chills, dysuria and fever(s) Related Data: Date of Last Menstrual Period: 06/19/95 Review of Systems Const: Denies: fever(s), chills, body aches or change in appetite Eyes: Denies: blurry vision or eye discomfort ENMT: Denies: throat pain or dental pain Card: Denies: chest pain Resp: Denies: dyspnea GI: Reports: abdominal pain and nausea : Denies: dysuria Musc: Denies: neck pain or back pain Skin/Breast: Denies: rash Neuro: Denies: headache(s) Psych: Denies: depression Wilbur/Lymph: Denies: easy bruising All/Imm: Denies: urticaria PFSH ED PFSH: Medical History Bladder stone Borderline personality disorder Cannabis dependence, uncomplicated Chronic anxiety Chronic back pain greater than 3 months duration Chronic gastritis without bleeding COPD (chronic obstructive pulmonary disease) Cystitis cystica Dysphagia Esophageal stricture Foreign body in bladder GERD without esophagitis Neurogenic bladder Opioid dependence, uncomplicated Psychiatric care Restrictive lung disease Schizoaffective disorder, bipolar type Tardive dyskinesia Urgency incontinence Surgical History H/O bladder repair surgery MESH REPAIR H/O colonoscopy with polypectomy H/O esophagogastroduodenoscopy (09/21/20) H/O: hysterectomy History of appendectomy History of breast biopsy History of foot surgery sx in 2009. Screws placed by Dr. Don. History of ureter stent Hx of cholecystectomy S/P bronchoscopy with biopsy Family History Mother No problems noted. Father No problems noted. Other Asthma Cancer Diabetes Heart disease Social History Smoking and tobacco status: current every day smoker (0.5 ppd, started at age 27) cigarettes Packs smoked per day: 1 Years cigarettes smoked: 20 [ Other cigarette details: Hx of 1 PPD x 20 Years, started at age 27] Quit status (tobacco): considering quitting Second hand smoke exposure: Yes Smoking risk assessment/counseling performed?: No Alcohol intake: never Counseling given: No Counseling given: No Lives independently: Yes Household members: spouse Marital status: Number of children: 3 Current occupational status: disabled History of recent travel: No Current gender identity: Female Female Reproductive History: Date of last menstrual period: 06/19/95 Physical Exam Const: COMMON NORMALS: no acute distress, patient oriented x3 and healthy appearing HENMT: COMMON NORMALS: normocephalic and atraumatic HEAD & SCALP: normocephalic and atraumatic Eye: COMMON NORMALS: Equal, round and reactive pupils present and EOMs intact bilaterally PUPIL: Yes Equal, round and reactive pupils present Neck/C-Spine: COMMON NORMALS: full ROM and supple Chest: COMMONS NORMALS: normal inspection of the chest and normal palpation of entire chest wall Resp: COMMON NORMALS: normal respiratory effort, No retractions, No use of accessory muscles and clear to auscultation bilaterally AUSCULTATION: clear to auscultation bilaterally Cardio: COMMON NORMALS: regular rate, regular rhythm and No murmurs present (Cardio) RATE: regular rate RHYTHM: regular rhythm GI: COMMON NORMALS: Normal to inspection, nondistended, normoactive bowel sounds present, Soft to palpation, non-tender and no masses PALPATION: Yes Soft to palpation Extremity: COMMON NORMALS: normal to inspection and full ROM Neuro: COMMON NORMALS: patient oriented x3, moves all extremities and no focal motor deficits Psych: COMMON NORMALS: mental status grossly normal, Normal thought process present and cooperative THOUGHT PROCESS: Normal thought process present Skin: COMMON NORMALS: no rashes or lesions noted and no wounds GENERAL SKIN EXAM: no rashes or lesions noted Course Vital Signs: Vital signs: Vital Signs Temperature 97.5 F L 03/17/22 03:43 Pulse Rate 97 03/17/22 03:43 Respiratory Rate 16 03/17/22 03:43 Blood Pressure 135/81 03/17/22 03:43 Pulse Oximetry 98 03/17/22 03:43 Oxygen Delivery Me thod 03/17/22 03:43 MDM - Abdominal Pain Medical Decision Making Patient presents here with vomiting abdominal pain is chronic in nature patient given Compazine Benadryl she had blood drawn earlier that were normal she is stable for discharge she is to follow-up with PCP and return if worsening. Discharge Plan Discharge Patient Disposition: Home Clinical Impression: Vomiting Qualifiers: Vomiting type: unspecified Nausea presence: with nausea Qualified Code(s): R11.2 - Nausea with vomiting, unspecified Condition: Stable Prescriptions: No Action sucralfate [Carafate] 1 gram tablet 1 g PO .4x daily quetiapine [Seroquel] 100 mg tablet 150 mg PO .HS Qty: 45 2RF citalopram 20 mg tablet 40 mg PO BEDTIME@21 Qty: 60 0RF fluticasone propionate 50 mcg/actuation spray,suspension 1 spray intranasal BID PRN (Reason: Allergy Symptoms) Qty: 16 1RF lamotrigine 200 mg tablet 200 mg PO DAILY@06 Qty: 30 1RF Ingrezza 80 mg capsule 80 mg PO DAILY@06 Qty: 30 2RF albuterol sulfate 90 mcg/actuation HFA aerosol inhaler 2 puff inhalation Q6H PRN (Reason: shortness of breath or wheezing) acetaminophen 500 mg Tablet 1,000 mg PO Q6H PRN (Reason: Pain) famotidine 20 mg tablet 20 mg PO DAILY@06 ondansetron 4 mg tablet,disintegrating 4 mg PO Q8H PRN (Reason: nausea and vomiting) Qty: 15 0RF clonidine HCl 0.1 mg tablet 0.1 mg PO BID PRN (Reason: blood pressure/withdrawal) buprenorphine-naloxone 2-0.5 mg Tablet, Sublingual 0.5 tab SUBLINGUAL DAILY@06 Trelegy Ellipta 200-62.5-25 mcg blister with device 1 ea inhalation DAILY@06 Rx Instructions: STOP BREO AND IPRATROPIUM fluconazole 100 mg tablet 100 mg PO DAILY Qty: 7 0RF nystatin 100,000 unit/gram powder 1 applic topical BID Qty: 30 0RF Rx Instructions: apply locally to B/L groin folds pantoprazole 40 mg tablet,delayed release (DR/EC) 40 mg PO DAILY@06 dicyclomine 10 mg capsule 10 mg PO TID Qty: 60 0RF ondansetron 4 mg tablet,disintegrating 4 mg PO Q6H PRN (Reason: nausea and vomiting) Qty: 14 0RF ondansetron 4 mg tablet,disintegrating 4 mg PO Q8H PRN (Reason: nausea and vomiting) Qty: 15 0RF Discharge Orders: Discharge ED (Routine); Ordered 03/17/22 Ordered By: Damien Urbina Referrals: Gordo Feng DO [Primary Care Provider] - 1-3 days Discharge Diet: Advance as tolerated Discharge Activity: Resume usual activity Patient Instructions: Acute Nausea and Vomiting (ED) Coding Level of Care Code ED Regional Marketing Director for Shellie Fwd Exam Comprehensive
[2022-03-17 03:43] VITALS: BP 135/81; PULSE 97; RESP 16; TEMP 36.4; O2SAT 98
[2022-03-17] MEDS: diphenhydrAMINE 50 mg/mL SDV 1mL IM (04:03)
[2022-03-17] MEDS: prochlorperazine 10 mg/2 mL Inj IM (04:03)
== END 2022-03-17 04:14 | disposition home or self-care (01) ==
PROVIDERS: Emergency Provider Emergency Medicine; PCP Electrodiagnostic Medicine
DX: R11.2 Nausea with vomiting, unspecified (principal); F17.210 Nicotine dependence, cigarettes, uncomplicated; J44.9 Chronic obstructive pulmonary disease, unspecified
CPT/HCPCS: 96372; 99284; J0780; J1200

== ENCOUNTER 2022-03-20 22:18 | Emergency (ER) | payer MEDICARE, MEDICAID, SELFPAY ==
[2022-03-20 22:29] VITALS: PULSE 99; RESP 16; TEMP 36.4; O2SAT 95
[2022-03-20 22:32] VITALS: BP 110/76
--- NOTE | 2022-03-20 23:32 | XRR_ITS ---
PROCEDURE INFORMATION: Exam: XR Abdomen Exam date and time: 03/20/2022 11:52 PM Age: 56 years old Clinical indication: Vomiting; Abdominal pain; Additional info: Abd pain, vomiting TECHNIQUE: Imaging protocol: Radiologic exam of the abdomen. Views: Frontal supine view of the abdomen. 1 View. COMPARISON: CT abdomen pelvis con [id number] 03/03/2022 2:06 AM FINDINGS: Gastrointestinal tract: Moderate stool is present within the colon. Bones/joints: Unremarkable. XR/XR KUB portable [id number] IMPRESSION: Moderate stool fills the colon.
[2022-03-20] MEDS: ondansetron 2 mg/ML SDV 2 mL 4 MG IM (23:48)
[2022-03-20] MEDS: HYDROmorphone 1 mg/mL INJ 1 mL 1.5 MG IM (23:48)
[2022-03-21] MEDS: acetaminophen 500 mg Tablet 1000 MG PO (00:47)
--- NOTE | 2022-03-21 04:17 | W.ED.ABDPA2 ---
HPI - Abdominal Pain General: Chief Complaint: Abdominal Pain Stated Complaint: ABD PAIN Time Seen by Provider: 03/20/22 23:29 History of Present Illness: Latesha is a 56-year-old female very well-known to the emergency department. She is here multiple times per week. She complains tonight of an exacerbation of her chronic abdominal pain and vomiting. She denies any fever. She denies blood in the stool. She denies dark tarry stools. She endorses that she has an appointment later today with Dr. Feng for consultation and potential endoscopy. She says that she is thrown up several times today and feels dehydrated. MD elicited complaint: abdominal pain Pertinent past history: other Onset (ago): hour(s) Pain Consistency: constant Location: Diffuse Quality: cramping and stabbing Radiation: none Migration to: no migration Exacerbating factors: eating Relieving factors: nothing Associated Symptoms: Reports dyspepsia, nausea and vomiting; Denies change in bowel habits, change in stool character, diarrhea, dysuria and fever(s) Related Data: Date of Last Menstrual Period: 06/19/95 Review of Systems Const: Denies: fever(s) Eyes: Denies: change in vision Card: Denies: chest pain or palpitations Resp: Denies: dyspnea, productive cough, non-productive cough or wheezing GI: Reports: nausea and vomiting; Denies: diarrhea, change in bowel habits or change in stool character : Denies: dysuria Skin/Breast: Denies: rash Neuro: Denies: headache(s), weakness in extremities, dizziness or confusion PFS ED PFSH: Medical History Bladder stone Borderline personality disorder Cannabis dependence, uncomplicated Chronic anxiety Chronic back pain greater than 3 months duration Chronic gastritis without bleeding COPD (chronic obstructive pulmonary disease) Cystitis cystica Dysphagia Esophageal stricture Foreign body in bladder GERD without esophagitis Neurogenic bladder Opioid dependence, uncomplicated Psychiatric care Restrictive lung disease Schizoaffective disorder, bipolar type Tardive dyskinesia Urgency incontinence Surgical History H/O bladder repair surgery MESH REPAIR H/O colonoscopy with polypectomy H/O esophagogastroduodenoscopy (09/21/20) H/O: hysterectomy History of appendectomy History of breast biopsy History of foot surgery sx in 2009. Screws placed by Dr. Don. History of ureter stent Hx of cholecystectomy S/P bronchoscopy with biopsy Family History Mother No problems noted. Father No problems noted. Other Asthma Cancer Diabetes Heart disease Social History Smoking and tobacco status: current every day smoker (0.5 ppd, started at age 27) cigarettes Packs smoked per day: 1 Years cigarettes smoked: 20 [ Other cigarette details: Hx of 1 PPD x 20 Years, started at age 27] Quit status (tobacco): considering quitting Second hand smoke exposure: Yes Smoking risk assessment/counseling performed?: No Alcohol intake: never Counseling given: No Counseling given: No Lives independently: Yes Household members: spouse Marital status: Number of children: 3 Current occupational status: disabled History of recent travel: No Current gender identity: Female Female Reproductive History: Date of last menstrual period: 06/19/95 Physical Exam Const: COMMON NORMALS: no acute distress GENERAL APPEARANCE: cooperative; not ill appearing and not frail appearing HENMT: COMMON NORMALS: normocephalic, atraumatic and Normal external nose present HEAD & SCALP: normocephalic and atraumatic FACE & SINUS: normal facial exam and face symmetric NOSE: Normal external nose present Eye: COMMON NORMALS: Equal, round and reactive pupils present and EOMs intact bilaterally PUPIL: Yes Equal, round and reactive pupils present Neck/C-Spine: COMMON NORMALS: full ROM GENERAL: Yes trachea midline Chest: CHEST: Yes Symmetrical chest wall rise Resp: COMMON NORMALS: normal respiratory effort, No retractions, No use of accessory muscles and clear to auscultation bilaterally AUSCULTATION: clear to auscultation bilaterally Cardio: COMMON NORMALS: regular rate and regular rhythm RATE: regular rate RHYTHM: regular rhythm GI: COMMON NORMALS: Normal to inspection, nondistended, normoactive bowel sounds present PALPATION: Yes Tenderness to palpation present (GI) (Diffuse) Extremity: COMMON NORMALS: no pedal edema Neuro: JEANINE COMA SCALE: document GCS findings Jeanine coma scale eye opening: Spontaneous Mccausland coma scale verbal response: Orientated Jeanine coma scale motor response: Obey commands Mccausland coma scale total score: 15 SENSORY EXAM: Yes extremities (intact) Psych: COMMON NORMALS: speech normal SPEECH: Yes normal speech Skin: COMMON NORMALS: no rashes or lesions noted GENERAL SKIN EXAM: no rashes or lesions noted Course Vital Signs: Vital signs: Vital Signs Temperature 97.5 F L 03/20/22 22:29 Pulse Rate 99 03/20/22 22:29 Respiratory Rate 16 03/20/22 22:29 Blood Pressure 110/76 03/20/22 22:32 Pulse Oximetry 95 03/20/22 22:29 Oxygen Delivery Me thod 03/20/22 22:29 MDM - Abdominal Pain Medical Decision Making Latesha presents today with her usual complaint. Her vitals are normal. She has no fever. There is no evidence of vomiting here. She is given an injection of Dilaudid. She is given antiemetic. As her veins are very difficult, these medications were given intramuscularly. She has passed an oral fluid challenge here without vomiting. She notes that she is still in pain despite the above. She was told that she will not be given any more pain medication. She is encouraged to keep her appointment with her PCP later today. She does have some constipation on KUB which is similar to prior. There is no obstruction. She will be discharged. Lab Data Labs/Radiology: Radiology Impressions KUB X-Ray 03/20/22 23:32 IMPRESSION: Moderate stool fills the colon. Discharge Plan Discharge Patient Disposition: Home Clinical Impression: Vomiting, Abdominal pain Condition: Stable Prescriptions: No Action benztropine 0.5 mg tablet 0.5 mg PO BID PRN zaleplon 10 mg capsule 10 mg PO .HS chlorpromazine 50 mg tablet 50 mg PO .HS citalopram 20 mg tablet 40 mg PO BEDTIME@21 Qty: 60 0RF sucralfate [Carafate] 1 gram tablet 1 g PO .4x daily fluticasone propionate 50 mcg/actuation spray,suspension 1 spray intranasal BID PRN (Reason: Allergy Symptoms) Qty: 16 1RF lamotrigine 200 mg tablet 200 mg PO DAILY@06 Qty: 30 1RF Ingrezza 80 mg capsule 80 mg PO DAILY@06 Qty: 30 2RF albuterol sulfate 90 mcg/actuation HFA aerosol inhaler 2 puff inhalation Q6H PRN (Reason: shortness of breath or wheezing) acetaminophen 500 mg Tablet 1,000 mg PO Q6H PRN (Reason: Pain) famotidine 20 mg tablet 20 mg PO DAILY@06 ondansetron 4 mg tablet,disintegrating 4 mg PO Q8H PRN (Reason: nausea and vomiting) Qty: 15 0RF Trelegy Ellipta 200-62.5-25 mcg blister with device 1 ea inhalation DAILY@06 Rx Instructions: STOP BREO AND IPRATROPIUM nystatin 100,000 unit/gram powder 1 applic topical BID Qty: 30 0RF Rx Instructions: apply locally to B/L groin folds pantoprazole 40 mg tablet,delayed release (DR/EC) 40 mg PO DAILY@06 ondansetron 4 mg tablet,disintegrating 4 mg PO Q6H PRN (Reason: nausea and vomiting) Qty: 14 0RF ondansetron 4 mg tablet,disintegrating 4 mg PO Q8H PRN (Reason: nausea and vomiting) Qty: 15 0RF Discharge Orders: Discharge ED (Routine); Ordered 03/21/22 Ordered By: Chivo Deleon Referrals: Gordo Feng DO [Primary Care Provider] - 1-3 days Patient Instructions: Abdominal Pain (ED), Opioid Safety, Pain Management Activity Restrictions/Additional Instructions: Be sure to follow-up with your doctor later today as scheduled. Coding Level of Care Code ED Fitness Sales Associate for Shellie Guallpa
== END 2022-03-21 00:57 | disposition home or self-care (01) ==
PROVIDERS: Emergency Provider Emergency Medicine; PCP Electrodiagnostic Medicine
DX: R10.9 Unspecified abdominal pain (principal); R11.10 Vomiting, unspecified; J44.9 Chronic obstructive pulmonary disease, unspecified; F17.210 Nicotine dependence, cigarettes, uncomplicated
CPT/HCPCS: 74018; 96372; 99284; J1170; J2405

== ENCOUNTER 2022-03-30 19:58 | Emergency (ER) | payer MEDICARE, MEDICAID, SELFPAY ==
[2022-03-30 20:13] VITALS: BMI 31.6
[2022-03-30 20:15] VITALS: BP 103/62; PULSE 79; RESP 15; TEMP 36.7; O2SAT 97
--- NOTE | 2022-03-30 23:18 | ED_ITS ---
HPI - Abdominal Pain General: Chief Complaint: Abdominal Pain Stated Complaint: Abd Pain Time Seen by Provider: 03/30/22 23:12 History of Present Illness: 56-year-old female comes in for exacerbation of her chronic abdominal pain and nausea and vomiting. Patient reports episode started early this morning and has persisted throughout the day. Patient alleges she has been waiting for a call back from her biomedical photographer in [place] for an appointment. I question the patient about whether or not pain management may be an option but she has not been referred. Patient appears nontoxic. Patient appears in moderate pain. Patient denies any blood in vomit or stool or fever. Associated Symptoms: Reports nausea and vomiting; Denies fever(s) Related Data: Date of Last Menstrual Period: 06/19/95 Review of Systems Const: Denies: fever(s) Card: Denies: chest pain Resp: Denies: dyspnea GI: Reports: abdominal pain, nausea and vomiting Musc: Denies: extremity swelling PFS ED PFSH: Medical History Bladder stone Borderline personality disorder Cannabis dependence, uncomplicated Chronic anxiety Chronic back pain greater than 3 months duration Chronic gastritis without bleeding COPD (chronic obstructive pulmonary disease) Cystitis cystica Dysphagia Esophageal stricture Foreign body in bladder GERD without esophagitis Neurogenic bladder Opioid dependence, uncomplicated Psychiatric care Restrictive lung disease Schizoaffective disorder, bipolar type Tardive dyskinesia Urgency incontinence Surgical History H/O bladder repair surgery MESH REPAIR H/O colonoscopy with polypectomy H/O esophagogastroduodenoscopy (09/21/20) H/O: hysterectomy History of appendectomy History of breast biopsy History of foot surgery sx in 2009. Screws placed by Dr. Don. History of ureter stent Hx of cholecystectomy S/P bronchoscopy with biopsy Family History Mother No problems noted. Father No problems noted. Other Asthma Cancer Diabetes Heart disease Social History Smoking and tobacco status: current every day smoker (0.5 ppd, started at age 27) cigarettes Packs smoked per day: 1 Years cigarettes smoked: 20 [ Other cigarette details: Hx of 1 PPD x 20 Years, started at age 27] Quit status (tobacco): considering quitting Second hand smoke exposure: Yes Smoking risk assessment/counseling performed?: No Alcohol intake: never Counseling given: No Counseling given: No Lives independently: Yes Household members: spouse Marital status: Number of children: 3 Current occupational status: disabled History of recent travel: No Current gender identity: Female Female Reproductive History: Date of last menstrual period: 06/19/95 Physical Exam Const: COMMON NORMALS: alert HENMT: COMMON NORMALS: normocephalic HEAD & SCALP: normocephalic MOUTH: Normal oral and palatal mucosa present Neck/C-Spine: COMMON NORMALS: no meningeal signs Resp: COMMON NORMALS: normal respiratory effort and clear to auscultation bilaterally AUSCULTATION: clear to auscultation bilaterally Cardio: COMMON NORMALS: regular rate and regular rhythm RATE: regular rate RHYTHM: regular rhythm GI: COMMON NORMALS: Soft to palpation AUSCULTATION: Yes Hypoactive bowel sounds present PALPATION: Yes Soft to palpation and Yes Tenderness to palpation present (GI) (Only to deep palpation) : COMMON NORMALS: Yes no CVA tenderness BLADDER/KIDNEY EXAM: Yes no CVA tenderness Back/Pelvis: COMMON NORMALS: no CVA tenderness Extremity: COMMON NORMALS: no pedal edema Neuro: SENSORIUM/ORIENTATION: Yes alert MENINGEAL SIGNS: Yes no meningeal signs Skin: COMMON NORMALS: turgor normal GENERAL SKIN EXAM: turgor normal Course Vital Signs: Vital signs: Vital Signs Temperature 98.1 F 03/30/22 20:15 Pulse Rate 79 03/30/22 20:15 Respiratory Rate 18 03/30/22 23:49 Blood Pressure 103/62 03/30/22 20:15 Pulse Oximetry 96 03/30/22 23:49 Oxygen Delivery Me thod 03/30/22 20:15 MDM - Abdominal Pain Medical Decision Making 56-year-old female comes in today for complaints of nausea and vomiting starting this morning with exacerbation of abdominal pain. Patient reports no fever or blood in vomit or stool. Patient appears nontoxic. On exam abdomen is soft with some mild tenderness on deep palpation. Bowel sounds are present. Vital signs are normal. Differential diagnosis includes but not limited to chronic abdominal pain, irritable bowel syndrome, malingering. I believe patient probably has chronic recurrent abdominal pain. KUB noted no sign of obstruction she does have some mild constipation. Also noticed on the KUB some degenerative changes in the spine with some scoliosis. The chronic pain may be more referred pain from the spine versus gastrointestinal. Recommended patient follow-up with primary care for referral to pain management. Return to ER for new concerns. Discharge Plan Discharge Patient Disposition: Home Clinical Impression: Chronic abdominal pain Condition: Stable Prescriptions: No Action benztropine 0.5 mg tablet 0.5 mg PO BID PRN zaleplon 10 mg capsule 10 mg PO .HS chlorpromazine 50 mg tablet 50 mg PO .HS citalopram 20 mg tablet 40 mg PO BEDTIME@21 Qty: 60 0RF sucralfate [Carafate] 1 gram tablet 1 g PO .4x daily fluticasone propionate 50 mcg/actuation spray,suspension 1 spray intranasal BID PRN (Reason: Allergy Symptoms) Qty: 16 1RF lamotrigine 200 mg tablet 200 mg PO DAILY@06 Qty: 30 1RF Ingrezza 80 mg capsule 80 mg PO DAILY@06 Qty: 30 2RF albuterol sulfate 90 mcg/actuation HFA aerosol inhaler 2 puff inhalation Q6H PRN (Reason: shortness of breath or wheezing) acetaminophen 500 mg Tablet 1,000 mg PO Q6H PRN (Reason: Pain) famotidine 20 mg tablet 20 mg PO DAILY@06 ondansetron 4 mg tablet,disintegrating 4 mg PO Q8H PRN (Reason: nausea and vomiting) Qty: 15 0RF Trelegy Ellipta 200-62.5-25 mcg blister with device 1 ea inhalation DAILY@06 Rx Instructions: STOP BREO AND IPRATROPIUM nystatin 100,000 unit/gram powder 1 applic topical BID Qty: 30 0RF Rx Instructions: apply locally to B/L groin folds pantoprazole 40 mg tablet,delayed release (DR/EC) 40 mg PO DAILY@06 ondansetron 4 mg tablet,disintegrating 4 mg PO Q6H PRN (Reason: nausea and vomiting) Qty: 14 0RF ondansetron 4 mg tablet,disintegrating 4 mg PO Q8H PRN (Reason: nausea and vomiting) Qty: 15 0RF Discharge Orders: Discharge ED (Routine); Ordered 03/31/22 Ordered By: Roney Vann Referrals: Gordo Feng, [Primary Care Provider] - Patient Instructions: Abdominal Pain (ED) Activity Restrictions/Additional Instructions: Follow-up with primary care in the morning about referral to pain management. Continue routine care otherwise as directed. Return to the ER for high fever greater than 100.4, blood in vomit or stool, or new concerns. Coding Level of Care Code ED Electronic Prepress System Operator for [employer] Fwd Exam Comprehensive
--- NOTE | 2022-03-30 23:30 | XRR_ITS ---
PROCEDURE INFORMATION: Exam: XR Abdomen Exam date and time: 03/30/2022 11:34 PM Age: 56 years old Clinical indication: Abdominal pain; Generalized; Prior surgery; Surgery type: Appy. Gb. Hysterectomy. Bladder mesh. Patient HX: C/O diffuse abd pain. TECHNIQUE: Imaging protocol: Radiologic exam of the abdomen. Views: Frontal supine view of the abdomen. 1 View. COMPARISON: CR (ABDOMEN, ) 03/20/2022 11:52 PM FINDINGS: Gastrointestinal tract: Large quantity of colonic stool noted. No abnormal bowel distention to suggest obstruction. Bones/joints: No acute findings. Soft tissues: Herniorrhaphy changes are suggested in the left inguinal region. XR/XR KUB [id number] IMPRESSION: Large quantity of stool suspicious for constipation. No abnormal bowel distention to suggest obstruction.
[2022-03-30 23:49] VITALS: RESP 18; O2SAT 96
[2022-03-30] MEDS: HYDROmorphone 1 mg/mL INJ 1 mL IM (23:49)
[2022-03-30] MEDS: promethazine 25 mg/mL SDV 1 mL IM (23:50)
[2022-03-31 00:20] VITALS: BP 130/81; PULSE 69; RESP 16; O2SAT 98
--- NOTE | 2022-03-31 13:30 | DCPLANNER ---
employee services manager had message to schedule a follow up appointment for patient with pain management. employee services manager is unable to refer patients to pain management, the pain management clinic wants referral to come from patients primary care physician. employee services manager called patient at phone number [phone], unable to speak with patient, a voicemail was left for patient to return supportive employment case manager phone call.
== END 2022-03-31 00:24 | disposition home or self-care (01) ==
PROVIDERS: Emergency Provider Nurse Practitioner Family; PCP Electrodiagnostic Medicine
DX: G89.29 Other chronic pain (principal); R10.9 Unspecified abdominal pain; J44.9 Chronic obstructive pulmonary disease, unspecified; F17.210 Nicotine dependence, cigarettes, uncomplicated
CPT/HCPCS: 74018; 96372; 99284; J1170; J2550

== ENCOUNTER 2022-05-01 20:36 | Emergency (ER) | payer MEDICARE, MEDICAID, SELFPAY ==
[2022-05-01 20:35] VITALS: BP 151/76; PULSE 86; RESP 18; TEMP 36.6; O2SAT 98; BMI 31.1
--- NOTE | 2022-05-01 20:44 | XRR_ITS ---
PROCEDURE INFORMATION: Exam: XR Abdomen Exam date and time: 05/01/2022 10:05 PM Age: 56 years old Clinical indication: Abdominal pain; Additional info: Abd pain TECHNIQUE: Imaging protocol: Radiologic exam of the abdomen. Views: Frontal supine view of the abdomen. 1 View. COMPARISON: CR (ABDOMEN, ) 03/30/2022 11:34 PM FINDINGS: Gastrointestinal tract: Moderate constipation without bowel dilation to indicate obstruction. Bones/joints: Unremarkable. XR/XR KUB portable [id number] IMPRESSION: Moderate constipation without bowel dilation to indicate obstruction.
[2022-05-01] MEDS: sodium chloride 0.9% 1,000 ML 999 ML IV (20:49)
[2022-05-01 20:50] VITALS: RESP 18; O2SAT 96
[2022-05-01] MEDS: ondansetron 2 mg/ML SDV 2 mL 4 MG IVP (20:50)
[2022-05-01] MEDS: morphine 4 mg/mL SDV 1 mL IVP (20:50)
[2022-05-01] MEDS: lactated ringers 1,000 ML 999 ML IV (20:51)
[2022-05-01 20:52] LABS: Basophils # 0.1 10^3/uL (0.0-0.1); Basophils % 1.2 %; Eosinophils # 0.4 10^3/uL (0.0-0.8); Eosinophils % 4.5 %; Hematocrit 47.3 % (37.0-47.0); Hemoglobin 15.4 g/dL (11.5-15.3); Lymphocytes # 2.8 10^3/uL (0.8-4.8); Lymphocytes % 29.8 %; Mean Corpuscular HGB Conc 32.6 g/dL (30.0-36.0); Mean Corpuscular Hemoglobin 31.1 pg (28.0-34.0); Mean Corpuscular Volume 95.6 fl (81-99); Mean Platelet Volume 10.3 fL (7.4-10.4); Monocytes # 0.6 10^3/uL (0.2-0.9); Monocytes % 6.7 %; Neutrophils # 5.35 10^3/uL (1.8-7.7); Neutrophils % 57.5 %; Nucleated Red Blood Cells % 0 %; Platelet Count 203 10^3/cmm (130-400); Red Blood Count 4.95 10^6/uL (4.1-5.3); Red Cell Distribution Width 14.2 % (12.1-15.1); White Blood Count 9.3 10^3/uL (4.0-10.0)
[2022-05-01 21:09] LABS: Alanine Aminotransferase 9 U/L (0-33); Albumin Level 4.1 g/dL (3.5-5.2); Alkaline Phosphatase 119 U/L (35-105); Anion Gap 12.6 (5-19); Aspartate Amino Transferase 13 U/L (0-32); Blood Urea Nitrogen 14 mg/dL (6-20); Calcium 9.9 mg/dL (8.5-10.5); Carbon Dioxide 25 mmol/L (22-29); Chloride 96 mmol/L (98-107); Globulin 2.7 g/dL (1.3-4.6); Glomerular Filtration Rate 57.8 mL/min (90-130); Glucose 92 mg/dL (65-115); Osmolality Calculated 270 mOsm/kg (285-295); Potassium 3.6 mmol/L (3.5-5.1); Sodium 130 mmol/L (136-145); Total Bilirubin 0.2 mg/dL (0.15-1.2); Total Protein 6.8 g/dL (6.6-8.7)
--- NOTE | 2022-05-01 21:15 | W.ED.ABDPA2 ---
HPI - Abdominal Pain General: Chief Complaint: Abdominal Pain Stated Complaint: ABD PAIN Time Seen by Provider: 05/01/22 20:42 Source: patient History of Present Illness: 56-year-old female well-known to the ER. She presents with abdominal pain. It seems to be an exacerbation of her chronic abdominal pain. She notes that she had been doing well for around 6 weeks, and had not had a flare of her belly pain. For what ever reason last night, she began to have pain and vomit. She vomited few times today as well, and has not had any oral intake except 16 ounce Sprite today she says. No fever, no diarrhea. She ran out of her Zofran at home and, and did not have any to take. MD elicited complaint: abdominal pain Pertinent past history: other Onset (ago): hour(s) Pain Consistency: constant Location: Diffuse Quality: cramping, stabbing and aching Radiation: none Migration to: no migration Exacerbating factors: vomiting and movement Relieving factors: nothing Associated Symptoms: Reports anorexia and vomiting; Denies change in bowel habits, change in stool character, diarrhea, fever(s), hematochezia and hematemesis Related Data: Date of Last Menstrual Period: 06/19/95 Review of Systems Const: Denies: fever(s) Eyes: Denies: change in vision ENMT: Denies: throat pain Card: Denies: chest pain, palpitations or irregular heart rhythm Resp: Denies: dyspnea, productive cough or non-productive cough GI: Reports: vomiting; Denies: hematemesis, diarrhea, change in bowel habits, change in stool character or hematochezia Neuro: Reports: headache(s) PFSH ED PFSH: Medical History Bladder stone Borderline personality disorder Cannabis dependence, uncomplicated Chronic anxiety Chronic back pain greater than 3 months duration Chronic gastritis without bleeding COPD (chronic obstructive pulmonary disease) Cystitis cystica Dysphagia Esophageal stricture Foreign body in bladder GERD without esophagitis Neurogenic bladder Opioid dependence, uncomplicated Psychiatric care Restrictive lung disease Schizoaffective disorder, bipolar type Tardive dyskinesia Urgency incontinence Surgical History H/O bladder repair surgery MESH REPAIR H/O colonoscopy with polypectomy H/O esophagogastroduodenoscopy (09/21/20) H/O: hysterectomy History of appendectomy History of breast biopsy History of foot surgery sx in 2010. Screws placed by Dr. Don. History of ureter stent Hx of cholecystectomy S/P bronchoscopy with biopsy Family History Mother No problems noted. Father No problems noted. Other Asthma Cancer Diabetes Heart disease Social History Smoking and tobacco status: current every day smoker cigarettes Packs smoked per day: 1 Years cigarettes smoked: 20 [ Other cigarette details: Hx of 1 PPD x 20 Years, started at age 27] Quit status (tobacco): considering quitting Second hand smoke exposure: Yes Smoking risk assessment/counseling performed?: No Alcohol intake: never Counseling given: No Counseling given: No Lives independently: Yes Household members: spouse Marital status: Number of children: 3 Current occupational status: disabled History of recent travel: No Current gender identity: Female Female Reproductive History: Date of last menstrual period: 06/19/95 Physical Exam Const: COMMON NORMALS: no acute distress GENERAL APPEARANCE: cooperative; not ill appearing and not frail appearing HENMT: COMMON NORMALS: normocephalic, atraumatic and Normal external nose present HEAD & SCALP: normocephalic and atraumatic FACE & SINUS: normal facial exam and face symmetric NOSE: Normal external nose present Eye: COMMON NORMALS: Equal, round and reactive pupils present and EOMs intact bilaterally PUPIL: Yes Equal, round and reactive pupils present Neck/C-Spine: GENERAL: Yes trachea midline Chest: CHEST: Yes Symmetrical chest wall rise Resp: COMMON NORMALS: normal respiratory effort, No retractions, No use of accessory muscles and clear to auscultation bilaterally AUSCULTATION: clear to auscultation bilaterally Cardio: COMMON NORMALS: regular rate and regular rhythm RATE: regular rate RHYTHM: regular rhythm GI: COMMON NORMALS: Normal to inspection, nondistended, normoactive bowel sounds present PALPATION: Yes Tenderness to palpation present (GI) (diffuse) Extremity: COMMON NORMALS: no pedal edema Neuro: JEANINE COMA SCALE: document GCS findings Norris coma scale eye opening: Spontaneous Norris coma scale verbal response: Orientated Jeanine coma scale motor response: Obey commands Norris coma scale total score: 15 SENSORY EXAM: Yes extremities (intact) Psych: COMMON NORMALS: speech normal SPEECH: Yes normal speech Skin: COMMON NORMALS: no rashes or lesions noted GENERAL SKIN EXAM: no rashes or lesions noted Course Vital Signs: Vital signs: Vital Signs Temperature 98 F 05/01/22 20:35 Pulse Rate 74 05/02/22 00:01 Respiratory Rate 16 05/02/22 00:01 Blood Pressure 119/72 05/02/22 00:01 Pulse Oximetry 95 05/02/22 00:01 Oxygen Delivery Me thod 05/01/22 20:35 MDM - Abdominal Pain Medical Decision Making Nick pain seem to be much harder to control this visit. She received morphine and Dilaudid. Laboratory was not remarkable. When the second dose of Dilaudid did not seem to relieve her pain, and the pain seemed to move to her left flank, CT noncontrast was ordered. It showed constipation much like her KUB. She will be allowed home with treatment for constipation. Lab Data : 05/01/22 20:40 05/01/22 20:40 Labs/Radiology: Radiology Impressions KUB X-Ray 05/01/22 20:44 IMPRESSION: Moderate constipation without bowel dilation to indicate obstruction. Abdomen/Pelvis CT 05/01/22 23:04 IMPRESSION: 1. Negative for acute inflammatory process in the abdomen or pelvis. 2. Cholecystectomy. 3. Right kidney nonobstructing renal calyceal stone. 4. Constipation. Laboratory Results WBC 9.3 10^3/uL (4.0-10.0) 05/01/22 20:40 RBC 4.95 10^6/uL (4.1-5.3) 05/01/22 20:40 Hgb 15.4 g/dL (11.5-15.3) H 05/01/22 20:40 Hct 47.3 % (37.0-47.0) H 05/01/22 20:40 MCV 95.6 fl (81-99) 05/01/22 20:40 MCH 31.1 pg (28.0-34.0) 05/01/22 20:40 MCHC 32.6 g/dL (30.0-36.0) 05/01/22 20:40 RDW 14.2 % (12.1-15.1) 05/01/22 20:40 Plt Count 203 10^3/cmm (130-400) 05/01/22 20:40 MPV 10.3 fL (7.4-10.4) 05/01/22 20:40 Neut % (Auto) 57.5 % 05/01/22 20:40 Lymph % (Auto) 29.8 % 05/01/22 20:40 [place] % (Auto) 6.7 % 05/01/22 20:40 Eos % (Auto) 4.5 % 05/01/22 20:40 Baso % (Auto) 1.2 % 05/01/22 20:40 Neut # (Auto) 5.35 10^3/uL (1.8-7.7) 05/01/22 20:40 Lymph # (Auto) 2.8 10^3/uL (0.8-4.8) 05/01/22 20:40 [place] # (Auto) 0.6 10^3/uL (0.2-0.9) 05/01/22 20:40 Eos # (Auto) 0.4 10^3/uL (0.0-0.8) 05/01/22 20:40 Baso # (Auto) 0.1 10^3/uL (0.0-0.1) 05/01/22 20:40 Nucleated RBC % (auto) 0 % 05/01/22 20:40 Nucleated RBCs # 0.0 /100WBC 05/01/22 20:40 Sodium 130 mmol/L (136-145) L 05/01/22 20:40 Potassium 3.6 mmol/L (3.5-5.1) 05/01/22 20:40 Chloride 96 mmol/L (98-107) L 05/01/22 20:40 Carbon Dioxide 25 mmol/L (22-29) 05/01/22 20:40 Anion Gap 12.6 (5-19) 05/01/22 20:40 BUN 14 mg/dL (6-20) 05/01/22 20:40 Creatinine 1.0 mg/dL (0.5-0.9) H 05/01/22 20:40 GFR Calculation 57.8 mL/min (90-130) L 05/01/22 20:40 Glucose 92 mg/dL (65-115) 05/01/22 20:40 Calculated Osmolality 270 mOsm/kg (285-295) L 05/01/22 20:40 Calcium 9.9 mg/dL (8.5-10.5) 05/01/22 20:40 Total Bilirubin 0.2 mg/dL (0.15-1.2) 05/01/22 20:40 AST 13 U/L (0-32) 05/01/22 20:40 ALT 9 U/L (0-33) 05/01/22 20:40 Alkaline Phosphatase 119 U/L (35-105) H 05/01/22 20:40 C-Reactive Protein 9.0 mg/L (0.0-4.9) H 05/01/22 20:40 Total Protein 6.8 g/dL (6.6-8.7) 05/01/22 20:40 Albumin 4.1 g/dL (3.5-5.2) 05/01/22 20:40 Globulin 2.7 g/dL (1.3-4.6) 05/01/22 20:40 Discharge Plan Discharge Patient Disposition: Home Clinical Impression: Abdominal pain, Constipation Condition: Stable Prescriptions: Continued ondansetron 4 mg tablet,disintegrating 4 mg PO Q8H PRN (Reason: nausea and vomiting) Qty: 15 0RF No Action cyojhinouhzv-Ac-vopk-minerals 18-0.4 mg tablet PO Neuriva Original 100-100 mg capsule PO trazodone 50 mg tablet 50 mg PO .HS Qty: 30 1RF Ingrezza 80 mg capsule 80 mg PO DAILY@06 Qty: 30 2RF citalopram 20 mg tablet 40 mg PO BEDTIME@21 Qty: 60 2RF lamotrigine 200 mg tablet 200 mg PO DAILY@06 Qty: 30 2RF fluticasone propionate 50 mcg/actuation spray,suspension 1 spray intranasal BID PRN (Reason: Allergy Symptoms) Qty: 16 1RF pantoprazole 40 mg tablet,delayed release (DR/EC) 40 mg PO DAILY@06 Qty: 90 0RF albuterol sulfate 90 mcg/actuation HFA aerosol inhaler 2 puff inhalation Q6H PRN (Reason: shortness of breath or wheezing) acetaminophen 500 mg Tablet 1,000 mg PO Q6H PRN (Reason: Pain) famotidine 20 mg tablet 20 mg PO DAILY@06 Trelegy Ellipta 200-62.5-25 mcg blister with device 1 ea inhalation DAILY@06 Rx Instructions: STOP BREO AND IPRATROPIUM nystatin 100,000 unit/gram powder 1 applic topical BID Qty: 30 0RF Rx Instructions: apply locally to B/L groin folds Discharge Orders: Discharge ED (Routine); Ordered 05/01/22 Ordered By: Chivo Deleon Referrals: Dara Tavera FNP [Primary Care Provider] - 1-3 days Discharge Diet: Advance as tolerated and Clear Liquid Discharge Activity: Resume usual activity Patient Instructions: Abdominal Pain (ED), Opioid Safety, Pain Management Activity Restrictions/Additional Instructions: Take medication you were dispensed when you get home, and stay close to the bathroom. Your CT scan shows that you have significant amount of stool burden in your belly which is the likely source of your pain. Return for fever, vomiting liquids or medications, other concerning symptoms. Coding Level of Care Code ED Surgical Processor for Shellie Fwd Exam Comprehensive
[2022-05-01 21:21] VITALS: RESP 16; O2SAT 98
[2022-05-01] MEDS: HYDROmorphone 1 mg/mL INJ 1 mL IVP ×2 (21:21→22:24)
[2022-05-01 22:24] VITALS: RESP 16; O2SAT 96
[2022-05-01] MEDS: lidocaine 2% viscous 15 ML, aluminum-mag hydrox-simethicon 30 ML, sucralfate oral liq 1 GM PO (22:26)
--- NOTE | 2022-05-01 23:04 | CTR_ITS ---
PROCEDURE INFORMATION: Exam: CT Abdomen And Pelvis Without Contrast Exam date and time: 05/01/2022 11:12 PM Age: 56 years old Clinical indication: Abdominal pain; Flank; Left; Additional info: Left flank pain TECHNIQUE: Imaging protocol: Computed tomography of the abdomen and pelvis without contrast. Radiation optimization: All CT scans at this facility use at least one of these dose optimization techniques: automated exposure control; mA and/or kV adjustment per patient size (includes targeted exams where dose is matched to clinical indication); or iterative reconstruction. COMPARISON: CT abdomen pelvis wo con [id number] 03/03/2022 2:06 AM RADIATION DOSE METRICS: Total DLP (mGy-cm): 775.5 FINDINGS: Liver: Normal. No mass. Gallbladder and bile ducts: Cholecystectomy. Pancreas: Normal. No ductal dilation. Spleen: Normal. No splenomegaly. Adrenal glands: Normal. No mass. Kidneys and ureters: Right kidney nonobstructing renal calyceal stone. Stomach and bowel: Constipation. Appendix: No evidence of appendicitis. Intraperitoneal space: Unremarkable. No free air. No significant fluid collection. Vasculature: Unremarkable. No abdominal aortic aneurysm. Lymph nodes: Unremarkable. No enlarged lymph nodes. Urinary bladder: Unremarkable as visualized. Reproductive: Unremarkable as visualized. Bones/joints: Unremarkable. No acute fracture. Soft tissues: Unremarkable. CT/CT kidney stone [id number] IMPRESSION: 1. Negative for acute inflammatory process in the abdomen or pelvis. 2. Cholecystectomy. 3. Right kidney nonobstructing renal calyceal stone. 4. Constipation.
[2022-05-02 00:01] VITALS: BP 119/72; PULSE 74; RESP 16; O2SAT 95
== END 2022-05-01 23:59 | disposition home or self-care (01) ==
PROVIDERS: Emergency Provider Emergency Medicine; PCP Registered Nurse
DX: R10.9 Unspecified abdominal pain (principal); K59.00 Constipation, unspecified
CPT/HCPCS: 74018; 74176; 80053; 85025; 86140; 96361; 96374; 96375; 96376; 99285; J1170; J2270; J2405; J7030; J7120

== ENCOUNTER 2022-05-15 19:47 | Emergency (ER) | payer MEDICARE, MEDICAID, SELFPAY ==
[2022-05-15 19:53] VITALS: BP 101/70; PULSE 85; RESP 16; TEMP 37.2; O2SAT 96; BMI 31.1
[2022-05-15 20:35] LABS: Basophils # 0.1 10^3/uL (0.0-0.1); Eosinophils # 0.3 10^3/uL (0.0-0.8); Eosinophils % 2.6 %; Hematocrit 46.5 % (37.0-47.0); Hemoglobin 15.5 g/dL (11.5-15.3); Lymphocytes # 2.7 10^3/uL (0.8-4.8); Lymphocytes % 23.8 %; Mean Corpuscular HGB Conc 33.3 g/dL (30.0-36.0); Mean Corpuscular Hemoglobin 31.3 pg (28.0-34.0); Mean Corpuscular Volume 93.9 fl (81-99); Mean Platelet Volume 10.6 fL (7.4-10.4); Monocytes # 0.7 10^3/uL (0.2-0.9); Monocytes % 6.4 %; Neutrophils # 7.54 10^3/uL (1.8-7.7); Nucleated Red Blood Cells % 0 %; Platelet Count 221 10^3/cmm (130-400); Red Blood Count 4.95 10^6/uL (4.1-5.3); Red Cell Distribution Width 14.4 % (12.1-15.1); White Blood Count 11.4 10^3/uL (4.0-10.0)
--- NOTE | 2022-05-15 20:39 | XRR_ITS ---
PROCEDURE INFORMATION: Exam: XR Chest Exam date and time: 05/15/2022 10:03 PM Age: 56 years old Clinical indication: Pain; Chest pressure; Additional info: Cp TECHNIQUE: Imaging protocol: Radiologic exam of the chest. Views: 1 view. COMPARISON: CR XR chest 1V portable [id number] 03/06/2022 7:35 PM FINDINGS: Lungs: Unremarkable. No consolidation. Pleural spaces: Unremarkable. No pleural effusion. No pneumothorax. Heart/Mediastinum: Unremarkable. No cardiomegaly. Bones/joints: Unremarkable. XR/XR chest 1V portable [id number] IMPRESSION: No acute findings.
--- NOTE | 2022-05-15 20:39 | ECG_ITS ---
[facility] Test Date: 2022-05-15 Pat Name: Latesha Wilhelm Department: Room: Gender: Female Certified Legal Secretary Specialist: : [id number] Requested By: Damien Urbina Order Number: [id number] Alice MD: Kenan Sidhu M.D. Measurements Intervals Graham Rate: 68 P: 55 TX: 155 QRS: 26 QRSD: 89 T: 40 QT: 428 QTc: 458 Interpretive Statements SINUS RHYTHM POSSIBLE LEFT ATRIAL ENLARGEMENT [-0.1mV P-WAVE IN V1/V2] Compared to ECG 03/07/2022 01:18:47 No significant changes Electronically Signed On 05-16-2022 14:20:34 RESEARCH CONTRACTS SUPERVISOR by Kenan Sidhu M.D. [id number]
[2022-05-15] MEDS: methocarbamol 750 mg Tablet PO (20:46)
[2022-05-15] MEDS: acetaminophen 500 mg Tablet 1000 MG PO (20:46)
--- NOTE | 2022-05-15 20:46 | W.ED.ABDPA2 ---
HPI - Abdominal Pain General: Chief Complaint: Abdominal Pain Stated Complaint: CP Time Seen by Provider: 05/15/22 20:33 Source: patient and EMS Mode of arrival: EMS Limitations: no limitations History of Present Illness: 56-year-old female who is very well-known to the ER states that she is pushing a box of ornaments and felt a sharp strain in the center of her chest states she had chest pain symptoms much worse with palpation states pain to 6 out of 10 states since then she had some radiation of pain into her abdomen denies any shortness of breath denies any vomiting or diarrhea. Associated Symptoms: Denies chills, dysuria and fever(s) Related Data: Date of Last Menstrual Period: 06/19/95 Review of Systems Const: Denies: fever(s), chills, body aches or change in appetite Eyes: Denies: blurry vision or eye discomfort ENMT: Denies: throat pain or dental pain Card: Reports: chest pain Resp: Denies: dyspnea GI: Reports: abdominal pain : Denies: dysuria Musc: Denies: neck pain or back pain Skin/Breast: Denies: rash Neuro: Denies: headache(s) Psych: Denies: depression Wilbur/Lymph: Denies: easy bruising All/Imm: Denies: urticaria PFSH ED PFSH: Medical History Bladder stone Borderline personality disorder Cannabis dependence, uncomplicated Chronic anxiety Chronic back pain greater than 3 months duration Chronic gastritis without bleeding COPD (chronic obstructive pulmonary disease) Cystitis cystica Dysphagia Esophageal stricture Foreign body in bladder GERD without esophagitis Neurogenic bladder Opioid dependence, uncomplicated Psychiatric care Restrictive lung disease Schizoaffective disorder, bipolar type Tardive dyskinesia Urgency incontinence Surgical History H/O bladder repair surgery MESH REPAIR H/O colonoscopy with polypectomy H/O esophagogastroduodenoscopy (09/21/20) H/O: hysterectomy History of appendectomy History of breast biopsy History of foot surgery sx in 2009. Screws placed by Dr. Don. History of ureter stent Hx of cholecystectomy S/P bronchoscopy with biopsy Family History Mother No problems noted. Father No problems noted. Other Asthma Cancer Diabetes Heart disease Social History Smoking and tobacco status: current every day smoker cigarettes Packs smoked per day: 1 Years cigarettes smoked: 20 [ Other cigarette details: Hx of 1 PPD x 20 Years, started at age 27] Quit status (tobacco): considering quitting Second hand smoke exposure: Yes Smoking risk assessment/counseling performed?: No Alcohol intake: never Counseling given: No Counseling given: No Lives independently: Yes Household members: spouse Marital status: Number of children: 3 Current occupational status: disabled History of recent travel: No Current gender identity: Female Female Reproductive History: Date of last menstrual period: 06/19/95 Physical Exam Const: COMMON NORMALS: no acute distress, patient oriented x3 and healthy appearing HENMT: COMMON NORMALS: normocephalic and atraumatic HEAD & SCALP: normocephalic and atraumatic Eye: COMMON NORMALS: Equal, round and reactive pupils present and EOMs intact bilaterally PUPIL: Yes Equal, round and reactive pupils present Neck/C-Spine: COMMON NORMALS: full ROM and supple Chest: COMMONS NORMALS: normal inspection of the chest OTHER: Point tender in the center of the chest Resp: COMMON NORMALS: normal respiratory effort, No retractions, No use of accessory muscles and clear to auscultation bilaterally AUSCULTATION: clear to auscultation bilaterally Cardio: COMMON NORMALS: regular rate, regular rhythm and No murmurs present (Cardio) RATE: regular rate RHYTHM: regular rhythm GI: COMMON NORMALS: Normal to inspection, nondistended, normoactive bowel sounds present, Soft to palpation, non-tender and no masses PALPATION: Yes Soft to palpation Extremity: COMMON NORMALS: normal to inspection and full ROM Neuro: COMMON NORMALS: patient oriented x3, moves all extremities and no focal motor deficits Psych: COMMON NORMALS: mental status grossly normal, Normal thought process present and cooperative THOUGHT PROCESS: Normal thought process present Skin: COMMON NORMALS: no rashes or lesions noted and no wounds GENERAL SKIN EXAM: no rashes or lesions noted Course Vital Signs: Vital signs: Vital Signs Temperature 98.9 F 05/15/22 19:53 Pulse Rate 85 05/15/22 19:53 Respiratory Rate 16 05/15/22 19:53 Blood Pressure 101/70 05/15/22 19:53 Pulse Oximetry 96 05/15/22 19:53 Oxygen Delivery Me thod 05/15/22 19:53 MDM - Abdominal Pain Medical Decision Making Patient presents here with chest pain is likely chest wall pain she is point tender in her chest blood work EKG x-ray is all normal she is stable for discharge she is to follow-up with PCP and return if worsening. Lab Data 05/15/22 20:19 05/15/22 20:19 Labs/Radiology: Radiology Impressions Chest X-Ray 05/15/22 20:39 IMPRESSION: No acute findings. Laboratory Results WBC 11.4 10^3/uL (4.0-10.0) H 05/15/22 20:19 RBC 4.95 10^6/uL (4.1-5.3) 05/15/22 20:19 Hgb 15.5 g/dL (11.5-15.3) H 05/15/22 20:19 Hct 46.5 % (37.0-47.0) 05/15/22 20:19 MCV 93.9 fl (81-99) 05/15/22 20:19 MCH 31.3 pg (28.0-34.0) 05/15/22 20:19 MCHC 33.3 g/dL (30.0-36.0) 05/15/22 20:19 RDW 14.4 % (12.1-15.1) 05/15/22 20:19 Plt Count 221 10^3/cmm (130-400) 05/15/22 20:19 MPV 10.6 fL (7.4-10.4) H 05/15/22 20:19 Neut % (Auto) 66.0 % 05/15/22 20:19 Lymph % (Auto) 23.8 % 05/15/22 20:19 [place] % (Auto) 6.4 % 05/15/22 20:19 Eos % (Auto) 2.6 % 05/15/22 20:19 Baso % (Auto) 1.0 % 05/15/22 20:19 Neut # (Auto) 7.54 10^3/uL (1.8-7.7) 05/15/22 20:19 Lymph # (Auto) 2.7 10^3/uL (0.8-4.8) 05/15/22 20:19 [place] # (Auto) 0.7 10^3/uL (0.2-0.9) 05/15/22 20:19 Eos # (Auto) 0.3 10^3/uL (0.0-0.8) 05/15/22 20:19 Baso # (Auto) 0.1 10^3/uL (0.0-0.1) 05/15/22 20:19 Nucleated RBC % (auto) 0 % 05/15/22 20:19 Nucleated RBCs # 0.0 /100WBC 05/15/22 20:19 Sodium 134 mmol/L (136-145) L 05/15/22 20:19 Potassium 3.9 mmol/L (3.5-5.1) 05/15/22 20:19 Chloride 101 mmol/L (98-107) 05/15/22 20:19 Carbon Dioxide 22 mmol/L (22-29) 05/15/22 20:19 Anion Gap 14.9 (5-19) 05/15/22 20:19 BUN 17 mg/dL (6-20) 05/15/22 20:19 Creatinine 1.0 mg/dL (0.5-0.9) H 05/15/22 20:19 GFR Calculation 57.8 mL/min (90-130) L 05/15/22 20:19 Glucose 105 mg/dL (65-115) 05/15/22 20:19 Calculated Osmolality 280 mOsm/kg (285-295) L 05/15/22 20:19 Calcium 9.9 mg/dL (8.5-10.5) 05/15/22 20:19 Total Bilirubin 0.2 mg/dL (0.15-1.2) 05/15/22 20:19 AST 11 U/L (0-32) 05/15/22 20:19 ALT 8 U/L (0-33) 05/15/22 20:19 Alkaline Phosphatase 112 U/L (35-105) H 05/15/22 20:19 Total Protein 6.7 g/dL (6.6-8.7) 05/15/22 20:19 Albumin 4.1 g/dL (3.5-5.2) 05/15/22 20:19 Globulin 2.6 g/dL (1.3-4.6) 05/15/22 20:19 Lipase 26 U/L (13-60) 05/15/22 20:19 Discharge Plan Discharge Patient Disposition: Home Clinical Impression: Chest wall pain, Abdominal pain Condition: Stable Prescriptions: No Action cmlgdwdozlvl-Qq-gmfh-minerals 18-0.4 mg tablet PO Neuriva Original 100-100 mg capsule PO trazodone 50 mg tablet 50 mg PO .HS Qty: 30 1RF Ingrezza 80 mg capsule 80 mg PO DAILY@06 Qty: 30 2RF citalopram 20 mg tablet 40 mg PO BEDTIME@21 Qty: 60 2RF lamotrigine 200 mg tablet 200 mg PO DAILY@06 Qty: 30 2RF fluticasone propionate 50 mcg/actuation spray,suspension 1 spray intranasal BID PRN (Reason: Allergy Symptoms) Qty: 16 1RF pantoprazole 40 mg tablet,delayed release (DR/EC) 40 mg PO DAILY@06 Qty: 90 0RF albuterol sulfate 90 mcg/actuation HFA aerosol inhaler 2 puff inhalation Q6H PRN (Reason: shortness of breath or wheezing) acetaminophen 500 mg Tablet 1,000 mg PO Q6H PRN (Reason: Pain) famotidine 20 mg tablet 20 mg PO DAILY@06 Trelegy Ellipta 200-62.5-25 mcg blister with device 1 ea inhalation DAILY@06 Rx Instructions: STOP BREO AND IPRATROPIUM nystatin 100,000 unit/gram powder 1 applic topical BID Qty: 30 0RF Rx Instructions: apply locally to B/L groin folds ondansetron 4 mg tablet,disintegrating 4 mg PO Q8H PRN (Reason: nausea and vomiting) Qty: 15 0RF Discharge Orders: Discharge ED (Routine); Ordered 05/15/22 Ordered By: Damien Urbina Referrals: Dara Tavera FNP [Primary Care Provider] - Discharge Diet: Advance as tolerated Discharge Activity: Resume usual activity Patient Instructions: Abdominal Pain (ED), Chest Wall Pain (ED) Coding Level of Care Code ED Veneer Supervisor for Chg Fwd Exam Comprehensive
[2022-05-15 20:56] LABS: Alanine Aminotransferase 8 U/L (0-33); Albumin Level 4.1 g/dL (3.5-5.2); Alkaline Phosphatase 112 U/L (35-105); Anion Gap 14.9 (5-19); Aspartate Amino Transferase 11 U/L (0-32); Blood Urea Nitrogen 17 mg/dL (6-20); Calcium 9.9 mg/dL (8.5-10.5); Carbon Dioxide 22 mmol/L (22-29); Chloride 101 mmol/L (98-107); Globulin 2.6 g/dL (1.3-4.6); Glomerular Filtration Rate 57.8 mL/min (90-130); Glucose 105 mg/dL (65-115); Lipase 26 U/L (13-60); Osmolality Calculated 280 mOsm/kg (285-295); Potassium 3.9 mmol/L (3.5-5.1); Sodium 134 mmol/L (136-145); Total Bilirubin 0.2 mg/dL (0.15-1.2); Total Protein 6.7 g/dL (6.6-8.7)
== END 2022-05-15 21:17 | disposition home or self-care (01) ==
PROVIDERS: Emergency Provider Emergency Medicine; PCP Registered Nurse
DX: R07.89 Other chest pain (principal); R10.9 Unspecified abdominal pain
CPT/HCPCS: 36415; 71045; 80053; 83690; 85025; 93005; 99285

== ENCOUNTER 2022-06-22 19:13 | Emergency (ER) | payer MEDICARE, MEDICAID, SELFPAY ==
[2022-06-22 19:23] VITALS: BP 120/69; PULSE 88; RESP 18; TEMP 36.7; O2SAT 97; BMI 31.1
[2022-06-22 19:48] LABS: Basophils # 0.1 10^3/uL (0.0-0.1); Basophils % 0.8 %; Eosinophils # 0.3 10^3/uL (0.0-0.8); Eosinophils % 2.5 %; Hematocrit 45.5 % (37.0-47.0); Hemoglobin 15.5 g/dL (11.5-15.3); Lymphocytes # 2.9 10^3/uL (0.8-4.8); Lymphocytes % 22.4 %; Mean Corpuscular HGB Conc 34.1 g/dL (30.0-36.0); Mean Corpuscular Hemoglobin 32.1 pg (28.0-34.0); Mean Corpuscular Volume 94.2 fl (81-99); Mean Platelet Volume 10.5 fL (7.4-10.4); Monocytes # 0.8 10^3/uL (0.2-0.9); Monocytes % 6.4 %; Neutrophils # 8.85 10^3/uL (1.8-7.7); Neutrophils % 67.5 %; Nucleated Red Blood Cells % 0 %; Platelet Count 210 10^3/cmm (130-400); Red Blood Count 4.83 10^6/uL (4.1-5.3); Red Cell Distribution Width 14.5 % (12.1-15.1); White Blood Count 13.1 10^3/uL (4.0-10.0)
--- NOTE | 2022-06-22 20:00 | ED_ITS ---
HPI - Abdominal Pain General: Chief Complaint: Abdominal Pain Stated Complaint: N/V Time Seen by Provider: 06/22/22 19:53 Source: patient and EMS Mode of arrival: EMS Limitations: no limitations History of Present Illness: 56-year-old female who is very well-known to ER has a history of chronic abdominal pain she states she has had pain over the last 3 days with nausea vomiting her pain is crampy in nature rates it a 2 out of 10 she is well-appearing here no fevers no worsening or improving factors. She states she set up to see GI in a week. Associated Symptoms: Reports nausea and vomiting; Denies chills, dysuria and fever(s) Related Data: Date of Last Menstrual Period: 06/19/95 Review of Systems Const: Denies: fever(s), chills, body aches or change in appetite Eyes: Denies: blurry vision or eye discomfort ENMT: Denies: throat pain or dental pain Card: Denies: chest pain Resp: Denies: dyspnea GI: Reports: abdominal pain, nausea and vomiting : Denies: dysuria Musc: Denies: neck pain or back pain Skin/Breast: Denies: rash Neuro: Denies: headache(s) Psych: Denies: depression Wilbur/Lymph: Denies: easy bruising All/Imm: Denies: urticaria PFSH ED PFSH: Medical History Bladder stone Borderline personality disorder Cannabis dependence, uncomplicated Chronic anxiety Chronic back pain greater than 3 months duration Chronic gastritis without bleeding COPD (chronic obstructive pulmonary disease) Cystitis cystica Dysphagia Esophageal stricture Foreign body in bladder GERD without esophagitis Insomnia Neurogenic bladder Opioid dependence, uncomplicated Psychiatric care Restrictive lung disease Schizoaffective disorder, bipolar type Tardive dyskinesia Tobacco use disorder Urgency incontinence Surgical History H/O bladder repair surgery MESH REPAIR H/O colonoscopy with polypectomy H/O esophagogastroduodenoscopy (09/21/20) H/O: hysterectomy History of appendectomy History of breast biopsy History of foot surgery sx in 2009. Screws placed by Dr. Don. History of ureter stent Hx of cholecystectomy S/P bronchoscopy with biopsy Family History Mother No problems noted. Father No problems noted. Other Asthma Cancer Diabetes Heart disease Social History Smoking and tobacco status: current every day smoker cigarettes Packs smoked per day: 1 Years cigarettes smoked: 20 [ Other cigarette details: Hx of 1 PPD x 20 Years, started at age 27] Quit status (tobacco): considering quitting Second hand smoke exposure: Yes Smoking risk assessment/counseling performed?: No Alcohol intake: never Counseling given: No Counseling given: No Lives independently: Yes Household members: spouse Marital status: Number of children: 3 Current occupational status: disabled History of recent travel: No Current gender identity: Female Female Reproductive History: Date of last menstrual period: 06/19/95 Physical Exam Const: COMMON NORMALS: no acute distress, patient oriented x3 and healthy appearing HENMT: COMMON NORMALS: normocephalic and atraumatic HEAD & SCALP: normocephalic and atraumatic Eye: COMMON NORMALS: Equal, round and reactive pupils present and EOMs intact bilaterally PUPIL: Yes Equal, round and reactive pupils present Neck/C-Spine: COMMON NORMALS: full ROM and supple Chest: COMMONS NORMALS: normal inspection of the chest and normal palpation of entire chest wall Resp: COMMON NORMALS: normal respiratory effort, No retractions, No use of accessory muscles and clear to auscultation bilaterally AUSCULTATION: clear to auscultation bilaterally Cardio: COMMON NORMALS: regular rate, regular rhythm and No murmurs present (Cardio) RATE: regular rate RHYTHM: regular rhythm GI: COMMON NORMALS: Normal to inspection, nondistended, normoactive bowel sounds present, Soft to palpation, non-tender and no masses PALPATION: Yes Soft to palpation Extremity: COMMON NORMALS: normal to inspection and full ROM Neuro: COMMON NORMALS: patient oriented x3, moves all extremities and no focal motor deficits Psych: COMMON NORMALS: mental status grossly normal, Normal thought process present and cooperative THOUGHT PROCESS: Normal thought process present Skin: COMMON NORMALS: no rashes or lesions noted and no wounds GENERAL SKIN EXAM: no rashes or lesions noted Course Vital Signs: Vital signs: Vital Signs Temperature 98.1 F 06/22/22 19:23 Pulse Rate 62 06/22/22 20:28 Respiratory Rate 18 06/22/22 19:23 Blood Pressure 108/65 06/22/22 20:28 Pulse Oximetry 96 06/22/22 20:28 Oxygen Delivery Me thod 06/22/22 20:28 MDM - Abdominal Pain Medical Decision Making Patient presents with abdominal pain is chronic in nature she is well-appearing here her exam is benign blood works normal she feels improved she stable for discharge she is to follow-up with GI as scheduled return if worsening she understands and agrees to plan. Lab Data 06/22/22 19:36 06/22/22 19:36 Labs/Radiology: Laboratory Results WBC 13.1 10^3/uL (4.0-10.0) H 06/22/22 19:36 RBC 4.83 10^6/uL (4.1-5.3) 06/22/22 19:36 Hgb 15.5 g/dL (11.5-15.3) H 06/22/22 19:36 Hct 45.5 % (37.0-47.0) 06/22/22 19:36 MCV 94.2 fl (81-99) 06/22/22 19:36 MCH 32.1 pg (28.0-34.0) 06/22/22 19:36 MCHC 34.1 g/dL (30.0-36.0) 06/22/22 19:36 RDW 14.5 % (12.1-15.1) 06/22/22 19:36 Plt Count 210 10^3/cmm (130-400) 06/22/22 19:36 MPV 10.5 fL (7.4-10.4) H 06/22/22 19:36 Neut % (Auto) 67.5 % 06/22/22 19:36 Lymph % (Auto) 22.4 % 06/22/22 19:36 Oliver % (Auto) 6.4 % 06/22/22 19:36 Eos % (Auto) 2.5 % 06/22/22 19:36 Baso % (Auto) 0.8 % 06/22/22 19:36 Neut # (Auto) 8.85 10^3/uL (1.8-7.7) H 06/22/22 19:36 Lymph # (Auto) 2.9 10^3/uL (0.8-4.8) 06/22/22 19:36 Oliver # (Auto) 0.8 10^3/uL (0.2-0.9) 06/22/22 19:36 Eos # (Auto) 0.3 10^3/uL (0.0-0.8) 06/22/22 19:36 Baso # (Auto) 0.1 10^3/uL (0.0-0.1) 06/22/22 19:36 Nucleated RBC % (auto) 0 % 06/22/22 19:36 Nucleated RBCs # 0.0 /100WBC 06/22/22 19:36 Sodium 140 mmol/L (136-145) 06/22/22 19:36 Potassium 3.8 mmol/L (3.5-5.1) 06/22/22 19:36 Chloride 105 mmol/L (98-107) 06/22/22 19:36 Carbon Dioxide 24 mmol/L (22-29) 06/22/22 19:36 Anion Gap 14.8 (5-19) 06/22/22 19:36 BUN 14 mg/dL (6-20) 06/22/22 19:36 Creatinine 1.1 mg/dL (0.5-0.9) H 06/22/22 19:36 GFR Calculation 51.8 mL/min (90-130) L 06/22/22 19:36 Glucose 86 mg/dL (65-115) 06/22/22 19:36 Calculated Osmolality 290 mOsm/kg (285-295) 06/22/22 19:36 Calcium 9.9 mg/dL (8.5-10.5) 06/22/22 19:36 Total Bilirubin 0.2 mg/dL (0.15-1.2) 06/22/22 19:36 AST 10 U/L (0-32) 06/22/22 19:36 ALT 7 U/L (0-33) 06/22/22 19:36 Alkaline Phosphatase 127 U/L (35-105) H 06/22/22 19:36 Total Protein 6.6 g/dL (6.6-8.7) 06/22/22 19:36 Albumin 3.9 g/dL (3.5-5.2) 06/22/22 19:36 Globulin 2.7 g/dL (1.3-4.6) 06/22/22 19:36 Lipase 23 U/L (13-60) 06/22/22 19:36 Discharge Plan Discharge Patient Disposition: Home Clinical Impression: Abdominal pain, Vomiting Condition: Stable Prescriptions: New ondansetron 4 mg tablet,disintegrating 4 mg PO Q6H PRN (Reason: nausea and vomiting) Qty: 14 0RF No Action [id number]-Gt-upuq-minerals 18-0.4 mg tablet PO Neuriva Original 100-100 mg capsule PO trazodone 50 mg tablet 50 mg PO .HS Qty: 30 1RF Ingrezza 80 mg capsule 80 mg PO DAILY@06 Qty: 30 2RF citalopram 20 mg tablet 40 mg PO BEDTIME@21 Qty: 60 2RF lamotrigine 200 mg tablet 200 mg PO DAILY@06 Qty: 30 2RF pantoprazole 40 mg tablet,delayed release (DR/EC) 40 mg PO DAILY@06 Qty: 90 0RF fluticasone propionate 50 mcg/actuation spray,suspension See Rx Instructions .ROUTE .COMPLEX Qty: 16 0RF Dose Instruction: SHAKE LIQUID AND USE 1 SPRAY IN EACH NOSTRIL TWICE DAILY NEEDED FOR ALLERGY SYMPTOMS Rx Instructions: SHAKE LIQUID AND USE 1 SPRAY IN EACH NOSTRIL TWICE DAILY NEEDED FOR ALLERGY SYMPTOMS nystatin 100,000 unit/gram powder 1 applic topical BID Qty: 30 0RF Rx Instructions: apply locally to B/L groin folds albuterol sulfate 90 mcg/actuation HFA aerosol inhaler 2 puff inhalation Q6H PRN (Reason: shortness of breath or wheezing) acetaminophen 500 mg Tablet 1,000 mg PO Q6H PRN (Reason: Pain) famotidine 20 mg tablet 20 mg PO DAILY@06 Trelegy Ellipta 200-62.5-25 mcg blister with device 1 ea inhalation DAILY@06 Rx Instructions: STOP BREO AND IPRATROPIUM ondansetron 4 mg tablet,disintegrating 4 mg PO Q8H PRN (Reason: nausea and vomiting) Qty: 15 0RF Discharge Orders: Discharge ED (Routine); Ordered 06/22/22 Ordered By: Damien Urbina Referrals: Dara Tavera FNP [Primary Care Provider] - 1-3 days Discharge Diet: Advance as tolerated Discharge Activity: Resume usual activity Patient Instructions: Abdominal Pain (ED) Coding Level of Care Code ED Computer Equipment Installer for Chg Fwd Exam Comprehensive
[2022-06-22 20:09] LABS: Alanine Aminotransferase 7 U/L (0-33); Albumin Level 3.9 g/dL (3.5-5.2); Alkaline Phosphatase 127 U/L (35-105); Aspartate Amino Transferase 10 U/L (0-32); Blood Urea Nitrogen 14 mg/dL (6-20); Calcium 9.9 mg/dL (8.5-10.5); Carbon Dioxide 24 mmol/L (22-29); Chloride 105 mmol/L (98-107); Globulin 2.7 g/dL (1.3-4.6); Glomerular Filtration Rate 51.8 mL/min (90-130); Glucose 86 mg/dL (65-115); Lipase 23 U/L (13-60); Osmolality Calculated 290 mOsm/kg (285-295); Sodium 140 mmol/L (136-145); Total Bilirubin 0.2 mg/dL (0.15-1.2); Total Protein 6.6 g/dL (6.6-8.7)
[2022-06-22] MEDS: morphine 4 mg/mL SDV 1 mL IM (20:26)
[2022-06-22] MEDS: ondansetron 2 mg/ML SDV 2 mL 4 MG IM (20:26)
[2022-06-22 20:28] VITALS: BP 108/65; PULSE 62; O2SAT 96
[2022-06-22 20:36] LABS: Anion Gap 14.8 (5-19); Potassium 3.8 mmol/L (3.5-5.1)
[2022-06-22 20:56] VITALS: BP 107/65; PULSE 62; RESP 16; O2SAT 95
== END 2022-06-22 20:30 | disposition home or self-care (01) ==
PROVIDERS: Emergency Provider Emergency Medicine; PCP Registered Nurse
DX: R10.9 Unspecified abdominal pain (principal); R11.11 Vomiting without nausea; F17.210 Nicotine dependence, cigarettes, uncomplicated; J44.9 Chronic obstructive pulmonary disease, unspecified
CPT/HCPCS: 80053; 83690; 85025; 96372; 99284; J2270; J2405

== ENCOUNTER 2022-06-26 19:34 | Emergency (ER) | payer MEDICARE, MEDICAID, SELFPAY ==
[2022-06-26 19:45] VITALS: BP 99/67; PULSE 85; RESP 16; TEMP 36.7; O2SAT 95
[2022-06-26 23:02] LABS: Basophils # 0.1 10^3/uL (0.0-0.1); Basophils % 0.7 %; Eosinophils # 0.3 10^3/uL (0.0-0.8); Eosinophils % 2.2 %; Hematocrit 46.9 % (37.0-47.0); Hemoglobin 15.8 g/dL (11.5-15.3); Lymphocytes # 2.3 10^3/uL (0.8-4.8); Lymphocytes % 20.3 %; Mean Corpuscular HGB Conc 33.7 g/dL (30.0-36.0); Mean Corpuscular Volume 94.9 fl (81-99); Mean Platelet Volume 10.4 fL (7.4-10.4); Monocytes # 0.6 10^3/uL (0.2-0.9); Neutrophils # 8.19 10^3/uL (1.8-7.7); Neutrophils % 71.5 %; Nucleated Red Blood Cells % 0 %; Platelet Count 218 10^3/cmm (130-400); Red Blood Count 4.94 10^6/uL (4.1-5.3); Red Cell Distribution Width 14.6 % (12.1-15.1); White Blood Count 11.5 10^3/uL (4.0-10.0)
[2022-06-26] MEDS: sodium chloride 0.9% 1,000 ML 999 ML IV (23:04)
[2022-06-26 23:21] LABS: Alanine Aminotransferase 7 U/L (0-33); Albumin Level 4.3 g/dL (3.5-5.2); Alkaline Phosphatase 129 U/L (35-105); Aspartate Amino Transferase 11 U/L (0-32); Blood Urea Nitrogen 16 mg/dL (6-20); Calcium 9.3 mg/dL (8.5-10.5); Carbon Dioxide 22 mmol/L (22-29); Chloride 105 mmol/L (98-107); Globulin 2.7 g/dL (1.3-4.6); Glomerular Filtration Rate 51.8 mL/min (90-130); Glucose 106 mg/dL (65-115); Osmolality Calculated 290 mOsm/kg (285-295); Sodium 139 mmol/L (136-145); Total Bilirubin 0.3 mg/dL (0.15-1.2)
[2022-06-26 23:21] LABS: Amphetamines Screen Urine Negative (Negative); Barbiturates Screen Urine Negative (Negative); Benzodiazepines Screen Urine Negative (Negative); Cocaine Screen Urine Negative (Negative); Opiate Screen Urine Negative (Negative); PCP Screen Urine Negative (Negative); THC Screen Urine Positive (Negative)
[2022-06-26 23:22] LABS: Bilirubin Urine Neg (Negative); Blood Urine Neg (Negative); Glucose Urine UA Norm (Normal); Ketones Urine Negative (Negative); Leukocyte Esterase Urine Trace (Negative); Nitrate Urine Negative (Negative); Protein Urine Neg (Negative); Specific Gravity, Urine 1.025 (1.005-1.030); Urine Appearance SL Hazy (CLEAR); Urine Color Yellow (Yellow); Urobilinogen Urine Neg (Negative); pH Urine 5 (5-7)
[2022-06-26 23:23] LABS: Add Urine Microscopic? YES
[2022-06-26 23:24] LABS: Bacteria Urine TRACE /hpf; Mucus Urine 3+ /hpf; RBC Urine 0-4 /hpf (0-2); Squamous Epithelial Cell Urine 25-40 /hpf (0-5)
[2022-06-26 23:25] LABS: Add Urine Culture? No
[2022-06-26 23:32] VITALS: RESP 18
[2022-06-26] MEDS: morphine 4 mg/mL SDV 1 mL IVP (23:32)
[2022-06-26] MEDS: ondansetron 2 mg/ML SDV 2 mL 4 MG IVP (23:32)
[2022-06-26] MEDS: promethazine 25 mg Tablet 50 MG PO (23:35)
[2022-06-27 00:51] VITALS: RESP 18; O2SAT 96
[2022-06-27] MEDS: morphine 4 mg/mL SDV 1 mL 8 MG IVP (00:51)
[2022-06-27 00:53] VITALS: BP 143/74; PULSE 66; RESP 18; O2SAT 97
[2022-06-27 02:00] VITALS: BP 139/95; PULSE 69; RESP 16; O2SAT 97
--- NOTE | 2022-06-28 12:27 | ED_ITS ---
HPI - Nausea/Vomiting/Diarrhea General: Chief complaint: Nausea/Vomiting/Diarrhea Stated complaint: ABD PAIN Time Seen by Provider: 06/26/22 22:43 History of Present Illness: 56 year old female well known to the emergency department. She presents with generalized abdominal pain, mainly in the epigastrium ongoing for the past couple of days. She knows she's had multiple episodes of vomiting. No fever. No diarrhea. She became concerned yesterday when she threw up some blood evidently, she's had streaks of blood in her vomitus today. MD elicited complaint: nausea, vomiting and abdominal pain Associated nausea: Yes Associated abdominal pain: Yes Location of pain: Diffuse and Epigastric Radiation: diffuse Pain consistency: constant Severity: similar to previous episodes Quality: cramping and stabbing Exacerbating factors: eating Relieving factors: none Associated symtoms: Reports anxiety, bloating, anorexia and nausea; Denies change in vision, chest pain, cough, decreased urine output, dizziness, fevers/chills or headache(s) Review of Systems Const: Denies: fever(s), chills or body aches Eyes: Denies: change in vision Card: Denies: chest pain Resp: Denies: dyspnea, productive cough, non-productive cough or wheezing GI: Reports: abdominal pain, nausea, vomiting, hematemesis (streaks) and bloating; Denies: hematochezia or melena : Denies: difficulty voiding Skin/Breast: Denies: rash Neuro: Denies: headache(s), weakness in extremities, dizziness or confusion Psych: Reports: anxiety [facility] ED PFSH: Medical History Bladder stone Borderline personality disorder Cannabis dependence, uncomplicated Chronic anxiety Chronic back pain greater than 3 months duration Chronic gastritis without bleeding COPD (chronic obstructive pulmonary disease) Cystitis cystica Dysphagia Esophageal stricture Foreign body in bladder GERD without esophagitis Insomnia Neurogenic bladder Opioid dependence, uncomplicated Psychiatric care Restrictive lung disease Schizoaffective disorder, bipolar type Tardive dyskinesia Tobacco use disorder Urgency incontinence Surgical History H/O bladder repair surgery MESH REPAIR H/O colonoscopy with polypectomy H/O esophagogastroduodenoscopy (09/21/20) H/O: hysterectomy History of appendectomy History of breast biopsy History of foot surgery sx in 2009. Screws placed by Dr. Don. History of ureter stent Hx of cholecystectomy S/P bronchoscopy with biopsy Family History Mother No problems noted. Father No problems noted. Other Asthma Cancer Diabetes Heart disease Social History Smoking and tobacco status: current every day smoker cigarettes Packs smoked per day: 1 Years cigarettes smoked: 20 [ Other cigarette details: Hx of 1 PPD x 20 Years, started at age 27] Quit status (tobacco): considering quitting Second hand smoke exposure: Yes Smoking risk assessment/counseling performed?: No Alcohol intake: never Counseling given: No Counseling given: No Lives independently: Yes Household members: spouse Marital status: Number of children: 3 Current occupational status: disabled History of recent travel: No Current gender identity: Female Female Reproductive History: Date of last menstrual period: 06/19/95 Physical Exam Const: COMMON NORMALS: no acute distress GENERAL APPEARANCE: cooperative and ill appearing (mildly); not frail appearing NUTRITIONAL APPEARANCE: overweight HENMT: COMMON NORMALS: normocephalic, atraumatic and Normal external nose present HEAD & SCALP: normocephalic and atraumatic FACE & SINUS: normal facial exam and face symmetric NOSE: Normal external nose present Eye: COMMON NORMALS: Equal, round and reactive pupils present and EOMs intact bilaterally PUPIL: Yes Equal, round and reactive pupils present Neck/C-Spine: GENERAL: Yes trachea midline Chest: CHEST: Yes Symmetrical chest wall rise Resp: COMMON NORMALS: normal respiratory effort, No retractions, No use of acc essory muscles and clear to auscultation bilaterally AUSCULTATION: clear to auscultation bilaterally Cardio: COMMON NORMALS: regular rate and regular rhythm RATE: regular rate RHYTHM: regular rhythm GI: COMMON NORMALS: Normal to inspection, nondistended, normoactive bowel sounds present PALPATION: Yes Tenderness to palpation present (GI) (diffuse) Extremity: COMMON NORMALS: no pedal edema Neuro: JEANINE COMA SCALE: document GCS findings Jeanine coma scale eye opening: Spontaneous [place] coma scale verbal response: Orientated Jeanine coma scale motor response: Obey commands Jeanine coma scale total score: 15 SENSORY EXAM: Yes extremities (intact) Psych: COMMON NORMALS: speech normal SPEECH: Yes normal speech Skin: COMMON NORMALS: no rashes or lesions noted GENERAL SKIN EXAM: no rashes or lesions noted Course Vital Signs: Vital signs: Vital Signs Temperature 98.0 F 06/26/22 19:45 Pulse Rate 69 06/27/22 02:00 Respiratory Rate 16 06/27/22 02:00 Blood Pressure 139/95 06/27/22 02:00 Pulse Oximetry 97 06/27/22 02:00 Oxygen Delivery Me thod 06/27/22 00:53 MDM - Nausea/Vomiting/Diarrhea Medical Decision Making aLtesha returns with similar symptoms. As usual, she has not exhibited any vomiting since being in her room. She has received a liter of fluids, morphine Zofran and promethazine. She tells me that she has an appointment with gastroenterology in [place] on Monday. I did not see any laboratory abnormalities significant enough to warrant imaging on this patient. She has been imaged multiple times over. She is encouraged to follow up with GI, and will be prescribed promethazine. Lab Data 06/26/22 22:53 06/26/22 22:53 Laboratory Results WBC 11.5 10^3/uL (4.0-10.0) H 06/26/22 22:53 RBC 4.94 10^6/uL (4.1-5.3) 06/26/22 22:53 Hgb 15.8 g/dL (11.5-15.3) H 06/26/22 22:53 Hct 46.9 % (37.0-47.0) 06/26/22 22:53 MCV 94.9 fl (81-99) 06/26/22 22:53 MCH 32.0 pg (28.0-34.0) 06/26/22 22:53 MCHC 33.7 g/dL (30.0-36.0) 06/26/22 22:53 RDW 14.6 % (12.1-15.1) 06/26/22 22:53 Plt Count 218 10^3/cmm (130-400) 06/26/22 22:53 MPV 10.4 fL (7.4-10.4) 06/26/22 22:53 Neut % (Auto) 71.5 % 06/26/22 22:53 Lymph % (Auto) 20.3 % 06/26/22 22:53 Patrick % (Auto) 5.0 % 06/26/22 22:53 Eos % (Auto) 2.2 % 06/26/22 22:53 Baso % (Auto) 0.7 % 06/26/22 22:53 Neut # (Auto) 8.19 10^3/uL (1.8-7.7) H 06/26/22 22:53 Lymph # (Auto) 2.3 10^3/uL (0.8-4.8) 06/26/22 22:53 Patrick # (Auto) 0.6 10^3/uL (0.2-0.9) 06/26/22 22:53 Eos # (Auto) 0.3 10^3/uL (0.0-0.8) 06/26/22 22:53 Baso # (Auto) 0.1 10^3/uL (0.0-0.1) 06/26/22 22:53 Nucleated RBC % (auto) 0 % 06/26/22 22:53 Nucleated RBCs # 0.0 /100WBC 06/26/22 22:53 Sodium 139 mmol/L (136-145) 06/26/22 22:53 Potassium 4.0 mmol/L (3.5-5.1) 06/26/22 22:53 Chloride 105 mmol/L (98-107) 06/26/22 22:53 Carbon Dioxide 22 mmol/L (22-29) 06/26/22 22:53 Anion Gap 16.0 (5-19) 06/26/22 22:53 BUN 16 mg/dL (6-20) 06/26/22 22:53 Creatinine 1.1 mg/dL (0.5-0.9) H 06/26/22 22:53 GFR Calculation 51.8 mL/min (90-130) L 06/26/22 22:53 Glucose 106 mg/dL (65-115) 06/26/22 22:53 Calculated Osmolality 290 mOsm/kg (285-295) 06/26/22 22:53 Calcium 9.3 mg/dL (8.5-10.5) 06/26/22 22:53 Total Bilirubin 0.3 mg/dL (0.15-1.2) 06/26/22 22:53 AST 11 U/L (0-32) 06/26/22 22:53 ALT 7 U/L (0-33) 06/26/22 22:53 Alkaline Phosphatase 129 U/L (35-105) H 06/26/22 22:53 Total Protein 7.0 g/dL (6.6-8.7) 06/26/22 22:53 Albumin 4.3 g/dL (3.5-5.2) 06/26/22 22:53 Globulin 2.7 g/dL (1.3-4.6) 06/26/22 22:53 Urine Color Yellow (Yellow) 06/26/22 23:03 Urine Appearance Sl hazy (CLEAR) A 06/26/22 23:03 Urine pH 5 (5-7) 06/26/22 23:03 Ur Specific [place] 1.025 (1.005-1.030) 06/26/22 23:03 Urine Protein Neg (Negative) 06/26/22 23:03 Urine Glucose (UA) Norm (Normal) 06/26/22 23:03 Urine Ketones Negative (Negative) 06/26/22 23:03 Urine Blood Neg (Negative) 06/26/22 23:03 Urine Nitrate Negative (Negative) 06/26/22 23:03 Urine Bilirubin Neg (Negative) 06/26/22 23:03 Urine Urobilinogen Neg mg/dL (Negative) 06/26/22 23:03 Ur Leukocyte Esterase Trace (Negative) H 06/26/22 23:03 Urine RBC 0-4 /hpf (0-2) H 06/26/22 23:03 Urine WBC 10-15 /hpf (0-5) H 06/26/22 23:03 Ur Squamous Epith Cells 25-40 /hpf (0-5) H 06/26/22 23:03 Amorphous Sediment Not Reportable 06/26/22 23:03 Urine Bacteria Trace /hpf (NONE) 06/26/22 23:03 Urine Mucus 3+ /hpf 06/26/22 23:03 Urine Opiates Screen Negative ng/mL (Negative) 06/26/22 23:03 Ur Barbiturates Screen Negative ng/mL (Negative) 06/26/22 23:03 Ur Phencyclidine Scrn Negative ng/mL (Negative) 06/26/22 23:03 Ur Amphetamines Screen Negative ng/mL (Negative) 06/26/22 23:03 U Benzodiazepines Scrn Negative ng/mL (Negative) 06/26/22 23:03 Urine Cocaine Screen Negative ng/mL (Negative) 06/26/22 23:03 U Marijuana (THC) Screen Positive ng/mL (Negative) H 06/26/22 23:03 Discharge Plan Discharge Patient Disposition: Home Clinical Impression: Tertiary contraction of esophagus, GERD without esophagitis, Abdominal pain Condition: Stable Prescriptions: New promethazine 25 mg tablet 25 mg PO Q6H PRN (Reason: nausea and vomiting) Qty: 10 0RF No Action mntjvohzngnl-Ry-ptfc-minerals 18-0.4 mg tablet PO Neuriva Original 100-100 mg capsule PO trazodone 50 mg tablet 50 mg PO .HS Qty: 30 1RF Ingrezza 80 mg capsule 80 mg PO DAILY@06 Qty: 30 2RF citalopram 20 mg tablet 40 mg PO BEDTIME@21 Qty: 60 2RF lamotrigine 200 mg tablet 200 mg PO DAILY@06 Qty: 30 2RF pantoprazole 40 mg tablet,delayed release (DR/EC) 40 mg PO DAILY@06 Qty: 90 0RF fluticasone propionate 50 mcg/actuation spray,suspension See Rx Instructions .ROUTE .COMPLEX Qty: 16 0RF Dose Instruction: SHAKE LIQUID AND USE 1 SPRAY IN EACH NOSTRIL TWICE DAILY NEEDED FOR ALLERGY SYMPTOMS Rx Instructions: SHAKE LIQUID AND USE 1 SPRAY IN EACH NOSTRIL TWICE DAILY NEEDED FOR ALLERGY SYMPTOMS nystatin 100,000 unit/gram powder 1 applic topical BID Qty: 30 0RF Rx Instructions: apply locally to B/L groin folds albuterol sulfate 90 mcg/actuation HFA aerosol inhaler 2 puff inhalation Q6H PRN (Reason: shortness of breath or wheezing) acetaminophen 500 mg Tablet 1,000 mg PO Q6H PRN (Reason: Pain) famotidine 20 mg tablet 20 mg PO DAILY@06 Trelegy Ellipta 200-62.5-25 mcg blister with device 1 ea inhalation DAILY@06 Rx Instructions: STOP BREO AND IPRATROPIUM ondansetron 4 mg tablet,disintegrating 4 mg PO Q8H PRN (Reason: nausea and vomiting) Qty: 15 0RF ondansetron 4 mg tablet,disintegrating 4 mg PO Q6H PRN (Reason: nausea and vomiting) Qty: 14 0RF Discharge Orders: Discharge ED (Routine); Ordered 06/27/22 Ordered By: Chivo Deleon Referrals: Dara Tavera FNP [Primary Care Provider] - 1-3 days Patient Instructions: GERD (Gastroesophageal Reflux Disease) (ED), Esophageal Spasm (ED), Abdominal Pain (ED), Opioid Safety, Pain Management Coding Level of Care Code ED [place] Architect for Shellie Guallpa
== END 2022-06-27 02:00 | disposition home or self-care (01) ==
PROVIDERS: Physician Assistant; Emergency Provider Emergency Medicine; PCP Registered Nurse
DX: K21.9 Gastro-esophageal reflux disease without esophagitis (principal); R10.9 Unspecified abdominal pain; F17.210 Nicotine dependence, cigarettes, uncomplicated; J44.9 Chronic obstructive pulmonary disease, unspecified; K22.2 Esophageal obstruction
CPT/HCPCS: 80053; 80306; 81001; 85025; 96361; 96374; 96375; 99284; J2270; J2405; J7030; Q0169

== ENCOUNTER 2022-07-24 19:24 | Emergency (ER) | payer MEDICARE, MEDICAID, SELFPAY ==
[2022-07-24 19:34] VITALS: BP 92/63; PULSE 76; RESP 14; TEMP 36.7; O2SAT 96; BMI 30.7
--- NOTE | 2022-07-24 22:50 | XRR_ITS ---
PROCEDURE INFORMATION: Exam: XR Abdomen Exam date and time: 07/24/2022 11:19 PM Age: 56 years old Clinical indication: Abdominal pain; Generalized; Prior surgery; Surgery date: 6+ months; Surgery type: Cholecystectomy; Additional info: Abd pain TECHNIQUE: Imaging protocol: Radiologic exam of the abdomen. Views: Frontal supine view of the abdomen. 1 View. COMPARISON: CT kidney stone [id number] 05/01/2022 11:12 PM FINDINGS: Gastrointestinal tract: No small bowel dilation or free air identified. Organs: Absent gallbladder. Left groin previous inguinal hernia repair. Small pelvic phleboliths. Bones/joints: Unremarkable. XR/XR KUB [id number] IMPRESSION: No acute findings.
--- NOTE | 2022-07-24 22:52 | W.ED.ABDPA2 ---
Documented by User: AMANDEEP Nunez 07/25/22 00:31 HPI - Abdominal Pain General: Chief Complaint: Abdominal Pain Stated Complaint: abdominal pain Time Seen by Provider: 07/24/22 22:45 History of Present Illness: 56-year-old female comes in today with nausea and abdominal pain. Patient does report some episodes of emesis with her nausea. Patient reports that she has a history of irritable bowel syndrome with constipation. Patient was started on Linzess which has improved her constipation but occasionally she does have a flareup of the abdominal pain. Patient appears nontoxic. Patient appears in mild to no pain. Patient reports no fever or blood in vomit or stool. Related Data: Date of Last Menstrual Period: 06/19/95 Review of Systems GI: Reports: abdominal pain PFSH ED PFSH: Medical History Bladder stone Borderline personality disorder Cannabis dependence, uncomplicated Chronic anxiety Chronic back pain greater than 3 months duration Chronic gastritis without bleeding COPD (chronic obstructive pulmonary disease) Cystitis cystica Dysphagia Esophageal stricture Foreign body in bladder GERD without esophagitis Insomnia Neurogenic bladder Opioid dependence, uncomplicated Psychiatric care Restrictive lung disease Schizoaffective disorder, bipolar type Tardive dyskinesia Tobacco use disorder Urgency incontinence Surgical History H/O bladder repair surgery MESH REPAIR H/O colonoscopy with polypectomy H/O esophagogastroduodenoscopy (09/21/20) H/O: hysterectomy History of appendectomy History of breast biopsy History of foot surgery sx in 2009. Screws placed by Dr. Don. History of ureter stent Hx of cholecystectomy S/P bronchoscopy with biopsy Family History Mother No problems noted. Father No problems noted. Other Asthma Cancer Diabetes Heart disease Social History Smoking and tobacco status: current every day smoker cigarettes Packs smoked per day: 1 Years cigarettes smoked: 20 [ Other cigarette details: Hx of 1 PPD x 20 Years, started at age 27] Quit status (tobacco): considering quitting Second hand smoke exposure: Yes Smoking risk assessment/counseling performed?: No Alcohol intake: never Counseling given: No Counseling given: No Lives independently: Yes Household members: spouse Marital status: Number of children: 3 Current occupational status: disabled History of recent travel: No Current gender identity: Female Female Reproductive History: Date of last menstrual period: 06/19/95 Physical Exam Const: COMMON NORMALS: alert HENMT: COMMON NORMALS: normocephalic HEAD & SCALP: normocephalic Resp: COMMON NORMALS: normal respiratory effort and clear to auscultation bilaterally AUSCULTATION: clear to auscultation bilaterally Cardio: COMMON NORMALS: regular rate and regular rhythm RATE: regular rate RHYTHM: regular rhythm GI: COMMON NORMALS: Soft to palpation INSPECTION: Yes normal to inspection PALPATION: Yes Soft to palpation and Yes Tenderness to palpation present (GI) (Generalized, no localization) Extremity: COMMON NORMALS: normal to inspection and no pedal edema Neuro: SENSORIUM/ORIENTATION: Yes alert Skin: COMMON NORMALS: turgor normal GENERAL SKIN EXAM: turgor normal Course Vital Signs: Vital signs: Vital Signs Temperature 98.1 F 07/24/22 19:34 Pulse Rate 82 07/25/22 00:48 Respiratory Rate 18 07/25/22 00:48 Blood Pressure 105/76 07/25/22 00:48 Pulse Oximetry 96 07/25/22 00:48 Oxygen Delivery Me thod 07/24/22 19:34 MDM - Abdominal Pain Medical Decision Making Patient comes in today for complaints of abdominal pain and nausea and vomiting that she was unable to control with medications at home. Patient has recurrent episodes of nausea and vomiting and abdominal pain which has been related with irritable bowel syndrome other constipation variety per her specialist. On exam bowel sounds are present. Skin is warm and dry. No localized abdominal tenderness is noted on palpation. Vital signs are normal. Differential diagnosis includes but not limited to bowel obstruction, irritable bowel syndrome, cyclic vomiting syndrome. Recommend follow-up with primary care or specialist that prescribed Linzess for other options to treat when patient has exacerbated abdominal pain. Patient reported understanding and agreed to plan. Lab Data 07/24/22 23:16 07/24/22 23:16 Labs/Radiology: Radiology Impressions KUB X-Ray 07/24/22 22:50 IMPRESSION: No acute findings. Laboratory Results WBC 16.4 10^3/uL (4.0-10.0) H 07/24/22 23:16 RBC 4.33 10^6/uL (4.1-5.3) 07/24/22 23:16 Hgb 13.6 g/dL (11.5-15.3) 07/24/22 23:16 Hct 42.4 % (37.0-47.0) 07/24/22 23:16 MCV 97.9 fl (81-99) 07/24/22 23:16 MCH 31.4 pg (28.0-34.0) 07/24/22 23:16 MCHC 32.1 g/dL (30.0-36.0) 07/24/22 23:16 RDW 14.1 % (12.1-15.1) 07/24/22 23:16 Plt Count 206 10^3/cmm (130-400) 07/24/22 23:16 MPV 11.0 fL (7.4-10.4) H 07/24/22 23:16 Neut % (Auto) 79.9 % 07/24/22 23:16 Lymph % (Auto) 13.6 % 07/24/22 23:16 Barren % (Auto) 3.2 % 07/24/22 23:16 Eos % (Auto) 2.4 % 07/24/22 23:16 Baso % (Auto) 0.4 % 07/24/22 23:16 Neut # (Auto) 13.09 10^3/uL (1.8-7.7) H 07/24/22 23:16 Lymph # (Auto) 2.2 10^3/uL (0.8-4.8) 07/24/22 23:16 Barren # (Auto) 0.5 10^3/uL (0.2-0.9) 07/24/22 23:16 Eos # (Auto) 0.4 10^3/uL (0.0-0.8) 07/24/22 23:16 Baso # (Auto) 0.1 10^3/uL (0.0-0.1) 07/24/22 23:16 Nucleated RBC % (auto) 0 % 07/24/22 23:16 Nucleated RBCs # 0.0 /100WBC 07/24/22 23:16 Sodium 136 mmol/L (136-145) 07/24/22 23:16 Potassium 4.0 mmol/L (3.5-5.1) 07/24/22 23:16 Chloride 104 mmol/L (98-107) 07/24/22 23:16 Carbon Dioxide 21 mmol/L (22-29) L 07/24/22 23:16 Anion Gap 15.0 (5-19) 07/24/22 23:16 BUN 21 mg/dL (6-20) H 07/24/22 23:16 Creatinine 1.0 mg/dL (0.5-0.9) H 07/24/22 23:16 GFR Calculation 57.8 mL/min (90-130) L 07/24/22 23:16 Glucose 89 mg/dL (65-115) 07/24/22 23:16 Calculated Osmolality 284 mOsm/kg (285-295) L 07/24/22 23:16 Calcium 8.8 mg/dL (8.5-10.5) 07/24/22 23:16 Total Bilirubin 0.2 mg/dL (0.15-1.2) 07/24/22 23:16 AST 13 U/L (0-32) 07/24/22 23:16 ALT 6 U/L (0-33) 07/24/22 23:16 Alkaline Phosphatase 132 U/L (35-105) H 07/24/22 23:16 Total Protein 5.9 g/dL (6.6-8.7) L 07/24/22 23:16 Albumin 4.0 g/dL (3.5-5.2) 07/24/22 23:16 Globulin 1.9 g/dL (1.3-4.6) 07/24/22 23:16 Lipase 32 U/L (13-60) 07/24/22 23:16 Urine Color Yellow (Yellow) 07/24/22 23:33 Urine Appearance Clear (CLEAR) 07/24/22 23:33 Urine pH 5 (5-7) 07/24/22 23:33 Ur Specific [place] 1.030 (1.005-1.030) 07/24/22 23:33 Urine Protein Trace (Negative) 07/24/22 23:33 Urine Glucose (UA) Norm (Normal) 07/24/22 23:33 Urine Ketones Negative (Negative) 07/24/22 23:33 Urine Blood 2+ (Negative) H 07/24/22 23:33 Urine Nitrate Negative (Negative) 07/24/22 23:33 Urine Bilirubin Neg (Negative) 07/24/22 23:33 Urine Urobilinogen 1 mg/dL (Negative) H 07/24/22 23:33 Ur Leukocyte Esterase 1+ (Negative) H 07/24/22 23:33 Urine RBC 15-25 /hpf (0-2) H 07/24/22 23:33 Urine WBC 10-15 /hpf (0-5) H 07/24/22 23:33 Ur Squamous Epith Cells 15-25 /hpf (0-5) H 07/24/22 23:33 Amorphous Sediment Not Reportable 07/24/22 23:33 Urine Bacteria Trace /hpf (NONE) 07/24/22 23:33 Urine Mucus 1+ /hpf 07/24/22 23:33 Discharge Plan Discharge Patient Disposition: Home Clinical Impression: Abdominal pain Qualifiers: Abdominal location: generalized Qualified Code(s): R10.84 - Generalized abdominal pain Condition: Stable Prescriptions: No Action tjjtautwnbmg-Tk-odin-minerals 18-0.4 mg tablet PO Neuriva Original 100-100 mg capsule PO citalopram 40 mg tablet 40 mg PO .q am Qty: 30 1RF Rx Instructions: Take one tablet by mouth every morning; stop 20 mg tablets lamotrigine 200 mg tablet 200 mg PO DAILY@06 Qty: 30 1RF fluticasone propionate 50 mcg/actuation spray,suspension See Rx Instructions .ROUTE .COMPLEX Qty: 16 0RF Dose Instruction: SHAKE LIQUID AND USE 1 SPRAY IN EACH NOSTRIL TWICE DAILY NEEDED FOR ALLERGY SYMPTOMS Rx Instructions: SHAKE LIQUID AND USE 1 SPRAY IN EACH NOSTRIL TWICE DAILY NEEDED FOR ALLERGY SYMPTOMS nystatin 100,000 unit/gram powder 1 applic topical BID Qty: 30 0RF Rx Instructions: apply locally to B/L groin folds mirtazapine [Remeron] 15 mg tablet 15 mg PO .qhs Qty: 30 1RF Rx Instructions: Take one tablet daily at bedtime; stop trazodone Ingrezza 80 mg capsule 80 mg PO DAILY@06 Qty: 30 1RF Rx Instructions: Take one capsule by mouth every morning pantoprazole 40 mg tablet,delayed release (DR/EC) 40 mg PO DAILY@06 Qty: 90 0RF albuterol sulfate 90 mcg/actuation HFA aerosol inhaler 2 puff inhalation Q6H PRN (Reason: shortness of breath or wheezing) acetaminophen 500 mg Tablet 1,000 mg PO Q6H PRN (Reason: Pain) Trelekassidy Ellipta 200-62.5-25 mcg blister with device 1 ea inhalation DAILY@06 Rx Instructions: STOP BREO AND IPRATROPIUM ondansetron 4 mg tablet,disintegrating 4 mg PO Q8H PRN (Reason: nausea and vomiting) Qty: 15 0RF promethazine 25 mg tablet 25 mg PO Q6H PRN (Reason: nausea and vomiting) Qty: 10 0RF ondansetron 4 mg tablet,disintegrating 4 mg PO Q6H PRN (Reason: nausea and vomiting) Qty: 14 0RF Discharge Orders: Discharge ED (Routine); Ordered 07/25/22 Ordered By: Roney Vann Referrals: Dara Tavera FNP [Primary Care Provider] - Discharge Diet: Usual diet Discharge Activity: Increase activity as tolerated Patient Instructions: Abdominal Pain (ED) Activity Restrictions/Additional Instructions: Continue routine care. Follow-up with specialist or primary care regarding further treatment management of your recurrent abdominal pain especially for breakthrough symptoms. Return to ER for worsening symptoms such as blood in vomit or stool, fever greater than 100.4, or new concerns. Coding Level of Care Code ED Foreman/Project Manager for Chg Fwd Exam Detailed Documented by User: Chivo Deleon DO 07/25/22 01:07 HPI - Abdominal Pain General: Chief Complaint: Abdominal Pain Stated Complaint: abdominal pain Time Seen by Provider: 07/24/22 22:45 PFSH ED PFSH: Medical History Bladder stone Borderline personality disorder Cannabis dependence, uncomplicated Chronic anxiety Chronic back pain greater than 3 months duration Chronic gastritis without bleeding COPD (chronic obstructive pulmonary disease) Cystitis cystica Dysphagia Esophageal stricture Foreign body in bladder GERD without esophagitis Insomnia Neurogenic bladder Opioid dependence, uncomplicated Psychiatric care Restrictive lung disease Schizoaffective disorder, bipolar type Tardive dyskinesia Tobacco use disorder Urgency incontinence Surgical History H/O bladder repair surgery MESH REPAIR H/O colonoscopy with polypectomy H/O esophagogastroduodenoscopy (09/21/20) H/O: hysterectomy History of appendectomy History of breast biopsy History of foot surgery sx in 2009. Screws placed by Dr. Don. History of ureter stent Hx of cholecystectomy S/P bronchoscopy with biopsy Family History Mother No problems noted. Father No problems noted. Other Asthma Cancer Diabetes Heart disease Social History Smoking and tobacco status: current every day smoker cigarettes Packs smoked per day: 1 Years cigarettes smoked: 20 [ Other cigarette details: Hx of 1 PPD x 20 Years, started at age 27] Quit status (tobacco): considering quitting Second hand smoke exposure: Yes Smoking risk assessment/counseling performed?: No Alcohol intake: never Counseling given: No Counseling given: No Lives independently: Yes Household members: spouse Marital status: Number of children: 3 Current occupational status: disabled History of recent travel: No Current gender identity: Female Course Vital Signs: Vital signs: Vital Signs Temperature 98.1 F 07/24/22 19:34 Pulse Rate 82 07/25/22 00:48 Respiratory Rate 18 07/25/22 00:48 Blood Pressure 105/76 07/25/22 00:48 Pulse Oximetry 96 07/25/22 00:48 Oxygen Delivery Me thod 07/24/22 19:34 MDM - Abdominal Pain Medical Decision Making Patient comes in today for complaints of abdominal pain and nausea and vomiting that she was unable to control with medications at home. Patient has recurrent episodes of nausea and vomiting and abdominal pain which has been related with irritable bowel syndrome other constipation variety per her specialist. On exam bowel sounds are present. Skin is warm and dry. No localized abdominal tenderness is noted on palpation. Vital signs are normal. Differential diagnosis includes but not limited to bowel obstruction, irritable bowel syndrome, cyclic vomiting syndrome. Recommend follow-up with primary care or specialist that prescribed Linzess for other options to treat when patient has exacerbated abdominal pain. Patient reported understanding and agreed to plan. This patient was originally seen and evaluated by AMANDEEP Chung. I agree with his history, evaluation, treatment. Lab Data 07/24/22 23:16 07/24/22 23:16 Labs/Radiology: Radiology Impressions KUB X-Ray 07/24/22 22:50 IMPRESSION: No acute findings. Laboratory Results WBC 16.4 10^3/uL (4.0-10.0) H 07/24/22 23:16 RBC 4.33 10^6/uL (4.1-5.3) 07/24/22 23:16 Hgb 13.6 g/dL (11.5-15.3) 07/24/22 23:16 Hct 42.4 % (37.0-47.0) 07/24/22 23:16 MCV 97.9 fl (81-99) 07/24/22 23:16 MCH 31.4 pg (28.0-34.0) 07/24/22 23:16 MCHC 32.1 g/dL (30.0-36.0) 07/24/22 23:16 RDW 14.1 % (12.1-15.1) 07/24/22 23:16 Plt Count 206 10^3/cmm (130-400) 07/24/22 23:16 MPV 11.0 fL (7.4-10.4) H 07/24/22 23:16 Neut % (Auto) 79.9 % 07/24/22 23:16 Lymph % (Auto) 13.6 % 07/24/22 23:16 Barren % (Auto) 3.2 % 07/24/22 23:16 Eos % (Auto) 2.4 % 07/24/22 23:16 Baso % (Auto) 0.4 % 07/24/22 23:16 Neut # (Auto) 13.09 10^3/uL (1.8-7.7) H 07/24/22 23:16 Lymph # (Auto) 2.2 10^3/uL (0.8-4.8) 07/24/22 23:16 Barren # (Auto) 0.5 10^3/uL (0.2-0.9) 07/24/22 23:16 Eos # (Auto) 0.4 10^3/uL (0.0-0.8) 07/24/22 23:16 Baso # (Auto) 0.1 10^3/uL (0.0-0.1) 07/24/22 23:16 Nucleated RBC % (auto) 0 % 07/24/22 23:16 Nucleated RBCs # 0.0 /100WBC 07/24/22 23:16 Sodium 136 mmol/L (136-145) 07/24/22 23:16 Potassium 4.0 mmol/L (3.5-5.1) 07/24/22 23:16 Chloride 104 mmol/L (98-107) 07/24/22 23:16 Carbon Dioxide 21 mmol/L (22-29) L 07/24/22 23:16 Anion Gap 15.0 (5-19) 07/24/22 23:16 BUN 21 mg/dL (6-20) H 07/24/22 23:16 Creatinine 1.0 mg/dL (0.5-0.9) H 07/24/22 23:16 GFR Calculation 57.8 mL/min (90-130) L 07/24/22 23:16 Glucose 89 mg/dL (65-115) 07/24/22 23:16 Calculated Osmolality 284 mOsm/kg (285-295) L 07/24/22 23:16 Calcium 8.8 mg/dL (8.5-10.5) 07/24/22 23:16 Total Bilirubin 0.2 mg/dL (0.15-1.2) 07/24/22 23:16 AST 13 U/L (0-32) 07/24/22 23:16 ALT 6 U/L (0-33) 07/24/22 23:16 Alkaline Phosphatase 132 U/L (35-105) H 07/24/22 23:16 Total Protein 5.9 g/dL (6.6-8.7) L 07/24/22 23:16 Albumin 4.0 g/dL (3.5-5.2) 07/24/22 23:16 Globulin 1.9 g/dL (1.3-4.6) 07/24/22 23:16 Lipase 32 U/L (13-60) 07/24/22 23:16 Urine Color Yellow (Yellow) 07/24/22 23:33 Urine Appearance Clear (CLEAR) 07/24/22 23:33 Urine pH 5 (5-7) 07/24/22 23:33 Ur Specific [place] 1.030 (1.005-1.030) 07/24/22 23:33 Urine Protein Trace (Negative) 07/24/22 23:33 Urine Glucose (UA) Norm (Normal) 07/24/22 23:33 Urine Ketones Negative (Negative) 07/24/22 23:33 Urine Blood 2+ (Negative) H 07/24/22 23:33 Urine Nitrate Negative (Negative) 07/24/22 23:33 Urine Bilirubin Neg (Negative) 07/24/22 23:33 Urine Urobilinogen 1 mg/dL (Negative) H 07/24/22 23:33 Ur Leukocyte Esterase 1+ (Negative) H 07/24/22 23:33 Urine RBC 15-25 /hpf (0-2) H 07/24/22 23:33 Urine WBC 10-15 /hpf (0-5) H 07/24/22 23:33 Ur Squamous Epith Cells 15-25 /hpf (0-5) H 07/24/22 23:33 Amorphous Sediment Not Reportable 07/24/22 23:33 Urine Bacteria Trace /hpf (NONE) 07/24/22 23:33 Urine Mucus 1+ /hpf 07/24/22 23:33 Discharge Plan Discharge Patient Disposition: Home Clinical Impression: Abdominal pain Qualifiers: Abdominal location: generalized Qualified Code(s): R10.84 - Generalized abdominal pain Condition: Stable Prescriptions: No Action mizrndyugcpr-Ay-liqu-minerals 18-0.4 mg tablet PO Neuriva Original 100-100 mg capsule PO citalopram 40 mg tablet 40 mg PO .q am Qty: 30 1RF Rx Instructions: Take one tablet by mouth every morning; stop 20 mg tablets lamotrigine 200 mg tablet 200 mg PO DAILY@06 Qty: 30 1RF fluticasone propionate 50 mcg/actuation spray,suspension See Rx Instructions .ROUTE .COMPLEX Qty: 16 0RF Dose Instruction: SHAKE LIQUID AND USE 1 SPRAY IN EACH NOSTRIL TWICE DAILY NEEDED FOR ALLERGY SYMPTOMS Rx Instructions: SHAKE LIQUID AND USE 1 SPRAY IN EACH NOSTRIL TWICE DAILY NEEDED FOR ALLERGY SYMPTOMS nystatin 100,000 unit/gram powder 1 applic topical BID Qty: 30 0RF Rx Instructions: apply locally to B/L groin folds mirtazapine [Remeron] 15 mg tablet 15 mg PO .qhs Qty: 30 1RF Rx Instructions: Take one tablet daily at bedtime; stop trazodone Ingrezza 80 mg capsule 80 mg PO DAILY@06 Qty: 30 1RF Rx Instructions: Take one capsule by mouth every morning pantoprazole 40 mg tablet,delayed release (DR/EC) 40 mg PO DAILY@06 Qty: 90 0RF albuterol sulfate 90 mcg/actuation HFA aerosol inhaler 2 puff inhalation Q6H PRN (Reason: shortness of breath or wheezing) acetaminophen 500 mg Tablet 1,000 mg PO Q6H PRN (Reason: Pain) Trelegy Ellipta 200-62.5-25 mcg blister with device 1 ea inhalation DAILY@06 Rx Instructions: STOP BREO AND IPRATROPIUM ondansetron 4 mg tablet,disintegrating 4 mg PO Q8H PRN (Reason: nausea and vomiting) Qty: 15 0RF promethazine 25 mg tablet 25 mg PO Q6H PRN (Reason: nausea and vomiting) Qty: 10 0RF ondansetron 4 mg tablet,disintegrating 4 mg PO Q6H PRN (Reason: nausea and vomiting) Qty: 14 0RF Discharge Orders: Discharge ED (Routine); Ordered 07/25/22 Ordered By: Roney Vann Referrals: Dara Tavera FNP [Primary Care Provider] - Discharge Diet: Usual diet Discharge Activity: Increase activity as tolerated Patient Instructions: Abdominal Pain (ED) Activity Restrictions/Additional Instructions: Continue routine care. Follow-up with specialist or primary care regarding further treatment management of your recurrent abdominal pain especially for breakthrough symptoms. Return to ER for worsening symptoms such as blood in vomit or stool, fever greater than 100.4, or new concerns. Coding Level of Care Code ED Foreman/Project Manager for Shellie Fwd Exam Detailed
[2022-07-24] MEDS: morphine 4 mg/mL SDV 1 mL IVP (23:21)
[2022-07-24] MEDS: ondansetron 2 mg/ML SDV 2 mL 8 MG IVP (23:21)
[2022-07-24 23:44] LABS: Basophils # 0.1 10^3/uL (0.0-0.1); Basophils % 0.4 %; Eosinophils # 0.4 10^3/uL (0.0-0.8); Eosinophils % 2.4 %; Hematocrit 42.4 % (37.0-47.0); Hemoglobin 13.6 g/dL (11.5-15.3); Lymphocytes # 2.2 10^3/uL (0.8-4.8); Lymphocytes % 13.6 %; Mean Corpuscular HGB Conc 32.1 g/dL (30.0-36.0); Mean Corpuscular Hemoglobin 31.4 pg (28.0-34.0); Mean Corpuscular Volume 97.9 fl (81-99); Monocytes # 0.5 10^3/uL (0.2-0.9); Monocytes % 3.2 %; Neutrophils # 13.09 10^3/uL (1.8-7.7); Neutrophils % 79.9 %; Nucleated Red Blood Cells % 0 %; Platelet Count 206 10^3/cmm (130-400); Red Blood Count 4.33 10^6/uL (4.1-5.3); Red Cell Distribution Width 14.1 % (12.1-15.1); White Blood Count 16.4 10^3/uL (4.0-10.0)
[2022-07-25] LABS: Alanine Aminotransferase 6 U/L (0-33); Alkaline Phosphatase 132 U/L (35-105); Blood Urea Nitrogen 21 mg/dL (6-20); Calcium 8.8 mg/dL (8.5-10.5); Carbon Dioxide 21 mmol/L (22-29); Chloride 104 mmol/L (98-107); Globulin 1.9 g/dL (1.3-4.6); Glomerular Filtration Rate 57.8 mL/min (90-130); Glucose 89 mg/dL (65-115); Lipase 32 U/L (13-60); Osmolality Calculated 284 mOsm/kg (285-295); Sodium 136 mmol/L (136-145); Total Bilirubin 0.2 mg/dL (0.15-1.2); Total Protein 5.9 g/dL (6.6-8.7)
[2022-07-25] LABS: Add Urine Microscopic? YES; Bilirubin Urine Neg (Negative); Blood Urine 2+ (Negative); Glucose Urine UA Norm (Normal); Ketones Urine Negative (Negative); Leukocyte Esterase Urine 1+ (Negative); Nitrate Urine Negative (Negative); Protein Urine Trace (Negative); Urine Appearance Clear (CLEAR); Urine Color Yellow (Yellow); Urobilinogen Urine 1 mg/dL (Negative); pH Urine 5 (5-7)
[2022-07-25 00:05] LABS: Aspartate Amino Transferase 13 U/L (0-32)
[2022-07-25 00:08] LABS: Add Urine Culture? No; Bacteria Urine TRACE /hpf; Mucus Urine 1+ /hpf; RBC Urine 15-25 /hpf (0-2); Squamous Epithelial Cell Urine 15-25 /hpf (0-5)
[2022-07-25] MEDS: morphine 4 mg/mL SDV 1 mL IVP (00:19)
[2022-07-25 00:26] LABS: Slide Review Slide Review Perform
[2022-07-25 00:48] VITALS: BP 105/76; PULSE 82; RESP 18; O2SAT 96
== END 2022-07-25 00:49 | disposition home or self-care (01) ==
PROVIDERS: Emergency Provider Nurse Practitioner Family; PCP Registered Nurse
DX: R10.84 Generalized abdominal pain (principal); F17.210 Nicotine dependence, cigarettes, uncomplicated; J44.9 Chronic obstructive pulmonary disease, unspecified
CPT/HCPCS: 74018; 80053; 81001; 81003; 83690; 85025; 96374; 96375; 96376; 99284; J2270; J2405

== ENCOUNTER 2022-08-16 19:09 | Emergency (ER) | payer MEDICARE, MEDICAID, SELFPAY ==
[2022-08-16 19:10] VITALS: BP 115/82; PULSE 71; RESP 18; TEMP 36.8; O2SAT 94; BMI 31.1
[2022-08-16 19:59] LABS: Basophils # 0.1 10^3/uL (0.0-0.1); Basophils % 0.7 %; Eosinophils # 0.4 10^3/uL (0.0-0.8); Eosinophils % 3.4 %; Hematocrit 41.5 % (37.0-47.0); Lymphocytes # 2.6 10^3/uL (0.8-4.8); Lymphocytes % 24.2 %; Mean Corpuscular HGB Conc 33.7 g/dL (30.0-36.0); Mean Corpuscular Volume 94.7 fl (81-99); Mean Platelet Volume 10.6 fL (7.4-10.4); Monocytes # 0.7 10^3/uL (0.2-0.9); Neutrophils # 6.86 10^3/uL (1.8-7.7); Neutrophils % 64.5 %; Nucleated Red Blood Cells % 0 %; Platelet Count 221 10^3/cmm (130-400); Red Blood Count 4.38 10^6/uL (4.1-5.3); Red Cell Distribution Width 14.6 % (12.1-15.1); White Blood Count 10.6 10^3/uL (4.0-10.0)
[2022-08-16 20:54] LABS: Slide Review Slide Review Perform
[2022-08-16 21:05] LABS: Alanine Aminotransferase 56 U/L (0-33); Alkaline Phosphatase 154 U/L (35-105); Anion Gap 15.8 (5-19); Aspartate Amino Transferase 44 U/L (0-32); Blood Urea Nitrogen 11 mg/dL (6-20); Carbon Dioxide 22 mmol/L (22-29); Chloride 107 mmol/L (98-107); Globulin 2.7 g/dL (1.3-4.6); Glomerular Filtration Rate 65.2 mL/min (90-130); Glucose 98 mg/dL (65-115); Lipase 27 U/L (13-60); Osmolality Calculated 291 mOsm/kg (285-295); Potassium 3.8 mmol/L (3.5-5.1); Sodium 141 mmol/L (136-145); Total Bilirubin 0.2 mg/dL (0.15-1.2); Total Protein 6.7 g/dL (6.6-8.7)
--- NOTE | 2022-08-16 21:34 | ED_ITS ---
HPI - Nausea/Vomiting/Diarrhea General: Chief complaint: Nausea/Vomiting/Diarrhea Stated complaint: abd pain,N/V x4 days Time Seen by Provider: 08/16/22 20:33 Source: patient and EMS Mode of arrival: EMS Limitations: no limitations History of Present Illness: 56-year-old female who is very well-known to the ER has been seen here multiple times in the past for abdominal pain and vomiting states that she started on new med by her GI doctor been having diarrhea since she had stopped and been taken Imodium but states she continues to have some diarrhea with abdominal cramping pain she denies any fever denies any worsening improving factors. Associated nausea: Yes Associated symtoms: Reports nausea; Denies chest pain, dysuria or headache(s) Review of Systems Const: Denies: fever(s), chills, body aches or change in appetite Eyes: Denies: blurry vision or eye discomfort ENMT: Denies: throat pain or dental pain Card: Denies: chest pain Resp: Denies: dyspnea GI: Reports: abdominal pain, nausea, vomiting and diarrhea : Denies: dysuria Musc: Denies: neck pain or back pain Skin/Breast: Denies: rash Neuro: Denies: headache(s) Psych: Denies: depression Wilbur/Lymph: Denies: easy bruising All/Imm: Denies: urticaria PFSH ED PFSH: Medical History Bladder stone Borderline personality disorder Cannabis dependence, uncomplicated Chronic anxiety Chronic back pain greater than 3 months duration Chronic gastritis without bleeding COPD (chronic obstructive pulmonary disease) Cystitis cystica Dysphagia Esophageal stricture Foreign body in bladder GERD without esophagitis Insomnia Neurogenic bladder Opioid dependence, uncomplicated Psychiatric care Restrictive lung disease Schizoaffective disorder, bipolar type Tardive dyskinesia Tobacco use disorder Urgency incontinence Surgical History H/O bladder repair surgery MESH REPAIR H/O colonoscopy with polypectomy H/O esophagogastroduodenoscopy (09/21/20) H/O: hysterectomy History of appendectomy History of breast biopsy History of foot surgery sx in 2009. Screws placed by Dr. Don. History of ureter stent Hx of cholecystectomy S/P bronchoscopy with biopsy Family History Mother No problems noted. Father No problems noted. Other Asthma Cancer Diabetes Heart disease Social History Smoking and tobacco status: current every day smoker cigarettes Packs smoked per day: 1 Years cigarettes smoked: 20 [ Other cigarette details: Hx of 1 PPD x 20 Years, started at age 27] Quit status (tobacco): considering quitting Second hand smoke exposure: Yes Smoking risk assessment/counseling performed?: No Alcohol intake: never Counseling given: No Counseling given: No Lives independently: Yes Household members: spouse Marital status: Number of children: 3 Current occupational status: disabled Current gender identity: Female Physical Exam Const: COMMON NORMALS: no acute distress, patient oriented x3 and healthy appearing HENMT: COMMON NORMALS: normocephalic and atraumatic HEAD & SCALP: normoc ephalic and atraumatic Eye: COMMON NORMALS: Equal, round and reactive pupils present and EOMs intact bilaterally PUPIL: Yes Equal, round and reactive pupils present Neck/C-Spine: COMMON NORMALS: full ROM and supple Chest: COMMONS NORMALS: normal inspection of the chest and normal palpation of entire chest wall Resp: COMMON NORMALS: normal respiratory effort, No retractions, No use of accessory muscles and clear to auscultation bilaterally AUSCULTATION: clear to auscultation bilaterally Cardio: COMMON NORMALS: regular rate, regular rhythm and No murmurs present (Cardio) RATE: regular rate RHYTHM: regular rhythm GI: COMMON NORMALS: Normal to inspection, nondistended, normoactive bowel sounds present, Soft to palpation, non-tender and no masses PALPATION: Yes Soft to palpation Extremity: COMMON NORMALS: normal to inspection and full ROM Neuro: COMMON NORMALS: patient oriented x3, moves all extremities and no focal motor deficits Psych: COMMON NORMALS: mental status grossly normal, Normal thought process present and cooperative THOUGHT PROCESS: Normal thought process present Skin: COMMON NORMALS: no rashes or lesions noted and no wounds GENERAL SKIN EXAM: no rashes or lesions noted Course Vital Signs: Vital signs: Vital Signs Temperature 98.2 F 08/16/22 19:10 Pulse Rate 71 08/16/22 19:10 Respiratory Rate 18 08/16/22 19:10 Blood Pressure 115/82 08/16/22 19:10 Pulse Oximetry 94 08/16/22 19:10 Oxygen Delivery Me thod 08/16/22 19:10 MDM - Nausea/Vomiting/Diarrhea Medical Decision Making Patient presents here with abdominal pain is chronic in nature along with nausea and diarrhea she does feel improved here did give her Lomotil she is to follow- up with her GI and return if worsening blood works normal abdominal exam is benign Lab Data 08/16/22 19:45 08/16/22 20:38 Laboratory Results WBC 10.6 10^3/uL (4.0-10.0) H 08/16/22 19:45 RBC 4.38 10^6/uL (4.1-5.3) 08/16/22 19:45 Hgb 14.0 g/dL (11.5-15.3) 08/16/22 19:45 Hct 41.5 % (37.0-47.0) 08/16/22 19:45 MCV 94.7 fl (81-99) 08/16/22 19:45 MCH 32.0 pg (28.0-34.0) 08/16/22 19:45 MCHC 33.7 g/dL (30.0-36.0) 08/16/22 19:45 RDW 14.6 % (12.1-15.1) 08/16/22 19:45 Plt Count 221 10^3/cmm (130-400) 08/16/22 19:45 MPV 10.6 fL (7.4-10.4) H 08/16/22 19:45 Neut % (Auto) 64.5 % 08/16/22 19:45 Lymph % (Auto) 24.2 % 08/16/22 19:45 Carter % (Auto) 7.0 % 08/16/22 19:45 Eos % (Auto) 3.4 % 08/16/22 19:45 Baso % (Auto) 0.7 % 08/16/22 19:45 Neut # (Auto) 6.86 10^3/uL (1.8-7.7) 08/16/22 19:45 Lymph # (Auto) 2.6 10^3/uL (0.8-4.8) 08/16/22 19:45 Carter # (Auto) 0.7 10^3/uL (0.2-0.9) 08/16/22 19:45 Eos # (Auto) 0.4 10^3/uL (0.0-0.8) 08/16/22 19:45 Baso # (Auto) 0.1 10^3/uL (0.0-0.1) 08/16/22 19:45 Nucleated RBC % (auto) 0 % 08/16/22 19:45 Nucleated RBCs # 0.0 /100WBC 08/16/22 19:45 Sodium 141 mmol/L (136-145) 08/16/22 20:38 Potassium 3.8 mmol/L (3.5-5.1) 08/16/22 20:38 Chloride 107 mmol/L (98-107) 08/16/22 20:38 Carbon Dioxide 22 mmol/L (22-29) 08/16/22 20:38 Anion Gap 15.8 (5-19) 08/16/22 20:38 BUN 11 mg/dL (6-20) 08/16/22 20:38 Creatinine 0.9 mg/dL (0.5-0.9) 08/16/22 20:38 GFR Calculation 65.2 mL/min (90-130) L 08/16/22 20:38 Glucose 98 mg/dL (65-115) 08/16/22 20:38 Calculated Osmolality 291 mOsm/kg (285-295) 08/16/22 20:38 Calcium 9.0 mg/dL (8.5-10.5) 08/16/22 20:38 Total Bilirubin 0.2 mg/dL (0.15-1.2) 08/16/22 20:38 AST 44 U/L (0-32) H 08/16/22 20:38 ALT 56 U/L (0-33) H 08/16/22 20:38 Alkaline Phosphatase 154 U/L (35-105) H 08/16/22 20:38 Total Protein 6.7 g/dL (6.6-8.7) 08/16/22 20:38 Albumin 4.0 g/dL (3.5-5.2) 08/16/22 20:38 Globulin 2.7 g/dL (1.3-4.6) 08/16/22 20:38 Lipase 27 U/L (13-60) 08/16/22 20:38 Discharge Plan Discharge Patient Disposition: Home Clinical Impression: Chronic nausea, Abdominal pain, Diarrhea Condition: Stable Prescriptions: No Action Linzess 145 mcg capsule 145 mcg PO DAILY mirtazapine [Remeron] 15 mg tablet 15 mg PO .qhs Qty: 30 1RF Rx Instructions: Take one tablet daily at bedtime exztqeseszlu-Up-beqc-minerals 18-0.4 mg tablet PO citalopram 40 mg tablet 40 mg PO .q am Qty: 30 1RF Rx Instructions: Take one tablet by mouth every morning; stop 20 mg tablets lamotrigine 200 mg tablet 200 mg PO DAILY@06 Qty: 30 1RF fluticasone propionate 50 mcg/actuation spray,suspension See Rx Instructions .ROUTE .COMPLEX Qty: 16 0RF Dose Instruction: SHAKE LIQUID AND USE 1 SPRAY IN EACH NOSTRIL TWICE DAILY NEEDED FOR JAYCE RGY SYMPTOMS Rx Instructions: SHAKE LIQUID AND USE 1 SPRAY IN EACH NOSTRIL TWICE DAILY NEEDED FOR ALLERGY SYMPTOMS nystatin 100,000 unit/gram powder 1 applic topical BID Qty: 30 0RF Rx Instructions: apply locally to B/L groin folds Ingrezza 80 mg capsule 80 mg PO DAILY@06 Qty: 30 1RF Rx Instructions: Take one capsule by mouth every morning pantoprazole 40 mg tablet,delayed release (DR/EC) 40 mg PO DAILY@06 Qty: 90 0RF albuterol sulfate 90 mcg/actuation HFA aerosol inhaler 2 puff inhalation Q6H PRN (Reason: shortness of breath or wheezing) acetaminophen 500 mg Tablet 1,000 mg PO Q6H PRN (Reason: Pain) Trelegy Ellipta 200-62.5-25 mcg blister with device 1 ea inhalation DAILY@06 Rx Instructions: STOP BREO AND IPRATROPIUM ondansetron 4 mg tablet,disintegrating 4 mg PO Q8H PRN (Reason: nausea and vomiting) Qty: 15 0RF ondansetron 4 mg tablet,disintegrating 4 mg PO Q6H PRN (Reason: nausea and vomiting) Qty: 14 0RF Discharge Orders: Discharge ED (Routine); Ordered 08/16/22 Ordered By: Damien Urbina Referrals: Dara Tavera FNP [Primary Care Provider] - Discharge Diet: Advance as tolerated Discharge Activity: Resume usual activity Patient Instructions: Diarrhea - Adult, Abdominal Pain (ED) Coding Level of Care Code ED Party Plan Sales Director for Shellie Guallpa
[2022-08-16 21:50] VITALS: PULSE 92; RESP 16; O2SAT 97
[2022-08-16] MEDS: morphine 4 mg/mL SDV 1 mL IM (21:50)
[2022-08-16] MEDS: ondansetron 2 mg/ML SDV 2 mL 4 MG IM (21:50)
[2022-08-16] MEDS: diphenoxylate/atropine Tablet 1 TAB PO (21:50)
== END 2022-08-16 21:51 | disposition home or self-care (01) ==
PROVIDERS: Emergency Provider Emergency Medicine; PCP Registered Nurse
DX: R11.0 Nausea (principal); R10.9 Unspecified abdominal pain; R19.7 Diarrhea, unspecified
CPT/HCPCS: 36415; 80053; 83690; 85025; 96372; 99284; J2270; J2405

== ENCOUNTER → 2022-08-18 08:43 | Outpatient (BNVA) | payer MEDICARE, MEDICAID, SELFPAY | PROVIDERS: PCP Registered Nurse; Visit Provider Registered Nurse | DX: E07.9 Disorder of thyroid, unspecified (principal); J30.9 Allergic rhinitis, unspecified | CPT/HCPCS: 84443 ==

== ENCOUNTER 2022-08-25 18:58 | Emergency (ER) | payer MEDICARE, MEDICAID, SELFPAY ==
--- NOTE | 2022-08-25 19:04 | ECG_ITS ---
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 Measurements Intervals Banks Rate: 89 P: 52 CO: 145 QRS: 52 QRSD: 90 T: 52 QT: 363 QTc: 444 Interpretive Statements SINUS RHYTHM POSSIBLE LEFT ATRIAL ENLARGEMENT [-0.1mV P-WAVE IN V1/V2] Compared to ECG 05/15/2022 20:43:54 No significant changes Electronically Signed On 08-25-2022 23:43:34 MANUFACTURING MANAGER by Kenan Sidhu M.D. [id number]
--- NOTE | 2022-08-25 19:04 | XRR_ITS ---
PROCEDURE INFORMATION: Exam: XR Chest Exam date and time: 08/25/2022 7:28 PM Age: 56 years old Clinical indication: Chest wall pain; Prior surgery; Surgery date: 6+ months; Surgery type: Lung biopsy 2020; Patient HX: Smoker; Additional info: Cp TECHNIQUE: Imaging protocol: Radiologic exam of the chest. Views: 1 view. COMPARISON: CR XR chest 1V portable [id number] 05/15/2022 10:03 PM FINDINGS: Lungs: Unremarkable. No consolidation. Pleural spaces: Unremarkable. No pleural effusion. No pneumothorax. Heart/Mediastinum: Unremarkable. No cardiomegaly. Bones/joints: Unremarkable for age. XR/XR chest 1V portable [id number] IMPRESSION: Negative chest
[2022-08-25 19:12] VITALS: BP 118/82; PULSE 84; RESP 16; TEMP 36.7; O2SAT 98
[2022-08-25 20:00] LABS: Basophils # 0.1 10^3/uL (0.0-0.1); Eosinophils # 0.3 10^3/uL (0.0-0.8); Eosinophils % 2.2 %; Hematocrit 44.9 % (37.0-47.0); Hemoglobin 15.2 g/dL (11.5-15.3); Lymphocytes # 2.8 10^3/uL (0.8-4.8); Lymphocytes % 22.6 %; Mean Corpuscular HGB Conc 33.9 g/dL (30.0-36.0); Mean Corpuscular Hemoglobin 31.9 pg (28.0-34.0); Mean Corpuscular Volume 94.3 fl (81-99); Mean Platelet Volume 10.4 fL (7.4-10.4); Monocytes # 0.9 10^3/uL (0.2-0.9); Monocytes % 7.2 %; Neutrophils % 66.7 %; Nucleated Red Blood Cells % 0 %; Platelet Count 298 10^3/cmm (130-400); Red Blood Count 4.76 10^6/uL (4.1-5.3); Red Cell Distribution Width 14.6 % (12.1-15.1); White Blood Count 12.3 10^3/uL (4.0-10.0)
--- NOTE | 2022-08-25 20:09 | W.ED.CHESTPA ---
HPI - Chest Pain General: Chief Complaint: Chest Pain Stated Complaint: CHEST PAIN Time Seen by Provider: 08/25/22 19:47 Source: patient and EMS Mode of arrival: EMS Limitations: no limitations History of Present Illness: 56-year-old female is very well-known to the ER states that she been having chest pain over the last 3 hours states she just had been feeling generally ill as well along with a headache her pain is a sharp pain in the center of her chest rates it a 6 out of 10 she rates her headache a 4 out of 10 denies any worsening proving factors. Associated symptoms: Deny abdominal pain, dyspnea, fever(s), nausea or vomiting Review of Systems Const: Denies: fever(s), chills, body aches or change in appetite Eyes: Denies: blurry vision or eye discomfort ENMT: Denies: throat pain or dental pain Card: Reports: chest pain Resp: Denies: dyspnea GI: Denies: abdominal pain, nausea, vomiting or diarrhea : Denies: dysuria Musc: Denies: neck pain or back pain Skin/Breast: Denies: rash Neuro: Reports: headache(s) Psych: Denies: depression Wilbur/Lymph: Denies: easy bruising All/Imm: Denies: urticaria PFSH ED PFSH: Medical History Bladder stone Borderline personality disorder Cannabis dependence, uncomplicated Chronic anxiety Chronic back pain greater than 3 months duration Chronic gastritis without bleeding COPD (chronic obstructive pulmonary disease) Cystitis cystica Dysphagia Esophageal stricture Foreign body in bladder GERD without esophagitis Insomnia Neurogenic bladder Opioid dependence, uncomplicated Psychiatric care Restrictive lung disease Schizoaffective disorder, bipolar type Tardive dyskinesia Tobacco use disorder Urgency incontinence Surgical History H/O bladder repair surgery MESH REPAIR H/O colonoscopy with polypectomy H/O esophagogastroduodenoscopy (09/21/20) H/O: hysterectomy History of appendectomy History of breast biopsy History of foot surgery sx in 2009. Screws placed by Dr. Don. History of ureter stent Hx of cholecystectomy S/P bronchoscopy with biopsy Family History Mother No problems noted. Father No problems noted. Other Asthma Cancer Diabetes Heart disease Social History Smoking and tobacco status: current every day smoker cigarettes Packs smoked per day: 1 Years cigarettes smoked: 20 [ Other cigarette details: Hx of 1 PPD x 20 Years, started at age 27] Quit status (tobacco): considering quitting Second hand smoke exposure: Yes Smoking risk assessment/counseling performed?: No Alcohol intake: never Counseling given: No Counseling given: No Lives independently: Yes Household members: spouse Marital status: Number of children: 3 Current occupational status: disabled Current gender identity: Female Physical Exam Const: COMMON NORMALS: no acute distress, patient oriented x3 and healthy appearing HENMT: COMMON NORMALS: normocephalic and atraumatic HEAD & SCALP: normocephalic and atraumatic Eye: COMMON NORMALS: Equal, round and reactive pupils present and EOMs intact bilaterally PUPIL: Yes Equal, round and reactive pupils present Neck/C-Spine: COMMON NORMALS: full ROM and supple Chest: COMMONS NORMALS: normal inspection of the chest and normal palpation of entire chest wall Resp: COMMON NORMALS: normal respiratory effort, No retractions, No use of accessory muscles and clear to auscultation bilaterally AUSCULTATION: clear to auscultation bilaterally Cardio: COMMON NORMALS: regular rate, regular rhythm and No murmurs present (Cardio) RATE: regular rate RHYTHM: regular rhythm GI: COMMON NORMALS: Normal to inspection, nondistended, normoactive bowel sounds present, Soft to palpation, non-tender and no masses PALPATION: Yes Soft to palpation Extremity: COMMON NORMALS: normal to inspection and full ROM Neuro: COMMON NORMALS: patient oriented x3, moves all extremities and no focal motor deficits Psych: COMMON NORMALS: mental status grossly normal, Normal thought process present and cooperative THOUGHT PROCESS: Normal thought process present Skin: COMMON NORMALS: no rashes or lesions noted and no wounds GENERAL SKIN EXAM: no rashes or lesions noted Course Vital Signs: Vital signs: Vital Signs Temperature 98.1 F 08/25/22 19:12 Pulse Rate 84 08/25/22 19:12 Respiratory Rate 16 08/25/22 19:12 Blood Pressure 118/82 08/25/22 19:12 Pulse Oximetry 98 08/25/22 19:12 Oxygen Delivery Me thod 08/25/22 19:12 MDM - Chest Pain Medical Decision Making Patient presents here with chest pain is atypical in nature she is tender on exam her troponin and EKG are normal she feels improved here after meds she is stable for discharge she is to follow-up with PCP and return if worsening she understands agrees to plan. Lab Data 08/25/22 19:55 08/25/22 19:55 Radiology Impressions Chest X-Ray 08/25/22 19:04 IMPRESSION: Negative chest Laboratory Results WBC 12.3 10^3/uL (4.0-10.0) H 08/25/22 19:55 RBC 4.76 10^6/uL (4.1-5.3) 08/25/22 19:55 Hgb 15.2 g/dL (11.5-15.3) 08/25/22 19:55 Hct 44.9 % (37.0-47.0) 08/25/22 19:55 MCV 94.3 fl (81-99) 08/25/22 19:55 MCH 31.9 pg (28.0-34.0) 08/25/22 19:55 MCHC 33.9 g/dL (30.0-36.0) 08/25/22 19:55 RDW 14.6 % (12.1-15.1) 08/25/22 19:55 Plt Count 298 10^3/cmm (130-400) 08/25/22 19:55 MPV 10.4 fL (7.4-10.4) 08/25/22 19:55 Neut % (Auto) 66.7 % 08/25/22 19:55 Lymph % (Auto) 22.6 % 08/25/22 19:55 Dixie % (Auto) 7.2 % 08/25/22 19:55 Eos % (Auto) 2.2 % 08/25/22 19:55 Baso % (Auto) 1.0 % 08/25/22 19:55 Neut # (Auto) 8.20 10^3/uL (1.8-7.7) H 08/25/22 19:55 Lymph # (Auto) 2.8 10^3/uL (0.8-4.8) 08/25/22 19:55 Dixie # (Auto) 0.9 10^3/uL (0.2-0.9) 08/25/22 19:55 Eos # (Auto) 0.3 10^3/uL (0.0-0.8) 08/25/22 19:55 Baso # (Auto) 0.1 10^3/uL (0.0-0.1) 08/25/22 19:55 Nucleated RBC % (auto) 0 % 08/25/22 19:55 Nucleated RBCs # 0.0 /100WBC 08/25/22 19:55 Sodium 141 mmol/L (136-145) 08/25/22 19:55 Potassium 4.5 mmol/L (3.5-5.1) 08/25/22 19:55 Chloride 104 mmol/L (98-107) 08/25/22 19:55 Carbon Dioxide 22 mmol/L (22-29) 08/25/22 19:55 Anion Gap 19.5 (5-19) H 08/25/22 19:55 BUN 18 mg/dL (6-20) 08/25/22 19:55 Creatinine 1.1 mg/dL (0.5-0.9) H 08/25/22 19:55 GFR Calculation 51.8 mL/min (90-130) L 08/25/22 19:55 Glucose 88 mg/dL (65-115) 08/25/22 19:55 Calculated Osmolality 293 mOsm/kg (285-295) 08/25/22 19:55 Calcium 9.1 mg/dL (8.5-10.5) 08/25/22 19:55 Total Bilirubin 0.2 mg/dL (0.15-1.2) 08/25/22 19:55 AST 11 U/L (0-32) 08/25/22 19:55 ALT 10 U/L (0-33) 08/25/22 19:55 Alkaline Phosphatase 150 U/L (35-105) H 08/25/22 19:55 Troponin T Baseline < 6 ng/L (0-10) 08/25/22 19:55 Total Protein 6.5 g/dL (6.6-8.7) L 08/25/22 19:55 Albumin 4.2 g/dL (3.5-5.2) 08/25/22 19:55 Globulin 2.3 g/dL (1.3-4.6) 08/25/22 19:55 Discharge Plan Discharge Patient Disposition: Home Clinical Impression: Chest pain Condition: Stable Prescriptions: No Action Linzess 145 mcg capsule 145 mcg PO DAILY mirtazapine [Remeron] 15 mg tablet 15 mg PO .qhs Qty: 30 1RF Rx Instructions: Take one tablet daily at bedtime xfkjuyasxwnz-Ys-ghad-minerals 18-0.4 mg tablet PO nystatin 100,000 unit/gram powder 1 applic topical BID Qty: 30 0RF Rx Instructions: apply locally to B/L groin folds pantoprazole 40 mg tablet,delayed release (DR/EC) 40 mg PO DAILY@06 Qty: 90 0RF Ingrezza 80 mg capsule 80 mg PO DAILY@06 Qty: 30 0RF Rx Instructions: Take one capsule by mouth every morning lamotrigine 200 mg tablet 200 mg PO DAILY@06 Qty: 30 0RF Rx Instructions: Take one tablet by mouth every morning citalopram 40 mg tablet 40 mg PO .q am Qty: 30 0RF Rx Instructions: Take one tablet by mouth every morning Afrin (oxymetazoline) 0.05 % mist 2 spray intranasal Q12H PRN (Reason: nasal congestion) 3 Days Qty: 15 0RF albuterol sulfate 90 mcg/actuation HFA aerosol inhaler 2 puff inhalation Q6H PRN (Reason: shortness of breath or wheezing) acetaminophen 500 mg Tablet 1,000 mg PO Q6H PRN (Reason: Pain) Trelegy Ellipta 200-62.5-25 mcg blister with device 1 ea inhalation DAILY@06 Rx Instructions: STOP BREO AND IPRATROPIUM ondansetron 4 mg tablet,disintegrating 4 mg PO Q8H PRN (Reason: nausea and vomiting) Qty: 15 0RF ondansetron 4 mg tablet,disintegrating 4 mg PO Q6H PRN (Reason: nausea and vomiting) Qty: 14 0RF Discharge Orders: Discharge ED (Routine); Ordered 08/25/22 Ordered By: Damien Urbina Referrals: Dara Tavera, FINANCIAL FOUNDATIONS ASSOCIATE [Primary Care Provider] - Discharge Diet: Advance as tolerated Discharge Activity: Resume usual activity Patient Instructions: Chest Pain (ED) Coding Level of Care Code ED Supervisor Plate Forming for Shellie Guallpa
[2022-08-25 20:26] LABS: Alanine Aminotransferase 10 U/L (0-33); Albumin Level 4.2 g/dL (3.5-5.2); Alkaline Phosphatase 150 U/L (35-105); Anion Gap 19.5 (5-19); Aspartate Amino Transferase 11 U/L (0-32); Blood Urea Nitrogen 18 mg/dL (6-20); Calcium 9.1 mg/dL (8.5-10.5); Carbon Dioxide 22 mmol/L (22-29); Chloride 104 mmol/L (98-107); Globulin 2.3 g/dL (1.3-4.6); Glomerular Filtration Rate 51.8 mL/min (90-130); Glucose 88 mg/dL (65-115); Osmolality Calculated 293 mOsm/kg (285-295); Potassium 4.5 mmol/L (3.5-5.1); Sodium 141 mmol/L (136-145); Total Bilirubin 0.2 mg/dL (0.15-1.2); Total Protein 6.5 g/dL (6.6-8.7)
[2022-08-25] MEDS: morphine 4 mg/mL SDV 1 mL IM (20:26)
[2022-08-25] MEDS: ondansetron 2 mg/ML SDV 2 mL 4 MG IM (20:27)
[2022-08-25 21:02] LABS: Troponin(5th) Baseline < 6 ng/L (0-10)
--- NOTE | 2022-08-25 21:04 | ECG_ITS ---
[facility] Test Date: 2022-08-25 Pat Name: Latesha Wilhelm Department: Room: Gender: Female Roller Skate Assembler: : 1965 Requested By: Damien Urbina Order Number: [id number] Alice MD: Temo Tony M.D. Measurements Intervals [place] Rate: 69 P: 73 MA: 163 QRS: 88 QRSD: 92 T: 74 QT: 414 QTc: 445 Interpretive Statements SINUS RHYTHM Compared to ECG 08/25/2022 19:19:02 No significant changes Electronically Signed On 08-26-2022 15:16:48 SUPERVISOR ACOUSTICAL TILE CARPENTERS by Temo Tony M.D. [id number]
== END 2022-08-25 21:15 | disposition home or self-care (01) ==
PROVIDERS: Emergency Provider Emergency Medicine; PCP Registered Nurse
DX: R07.9 Chest pain, unspecified (principal); F17.210 Nicotine dependence, cigarettes, uncomplicated; J44.9 Chronic obstructive pulmonary disease, unspecified
CPT/HCPCS: 36415; 71045; 80053; 84484; 85025; 93005; 96372; 99285; J2270; J2405

== ENCOUNTER 2022-08-28 22:59 | Emergency (ER) | payer MEDICARE, MEDICAID, SELFPAY ==
[2022-08-28 23:01] VITALS: BMI 30.7
[2022-08-28 23:03] VITALS: BP 128/72; PULSE 71; RESP 16; TEMP 36.5; O2SAT 98
--- NOTE | 2022-08-28 23:10 | W.ED.ABDPA2 ---
HPI - Abdominal Pain General: Chief Complaint: Abdominal Pain Stated Complaint: abd pain Time Seen by Provider: 08/28/22 23:04 History of Present Illness: 56-year-old female comes in today for concerns of persistent diarrhea with episodes of nausea and vomiting. Patient reports that she had talked to her GI specialist on Monday due to the Linzess that she was taking causing constipation and then diarrhea episodes. Patient was recommended to stop the Linzess and then on Monday start taking a stool softener. Patient reports that yesterday she had persistent diarrhea. Today she had 2-3 episodes of emesis along with the diarrhea. Patient tried using Zofran with minimal relief of her nausea and vomiting. Patient then tried taking a oral tablet Phenergan but was not able to hold it down. Patient continues to have nausea and episodes of diarrhea tonight. Patient denies any blood in the vomit or stool. Patient appears nontoxic. Patient comes to the ER often for episodes of nausea vomiting and diarrhea. Patient has a history of insomnia, opioid dependence, cannabis dependence, COPD, GERD, major depression, borderline personality disorder, chronic anxiety, neurogenic bladder. Associated Symptoms: Reports constipation, diarrhea, nausea and vomiting; Denies fever(s) Review of Systems General: Reports: 10 or more systems reviewed and unremarkable except in HPI and below Const: Denies: fever(s) Card: Denies: chest pain Resp: Denies: dyspnea GI: Reports: nausea, vomiting, diarrhea and constipation : Denies: difficulty voiding Musc: Denies: neck pain or back pain Skin/Breast: Denies: rash PFSH ED PFSH: Medical History Bladder stone Borderline personality disorder Cannabis dependence, uncomplicated Chronic anxiety Chronic back pain greater than 3 months duration Chronic gastritis without bleeding COPD (chronic obstructive pulmonary disease) Cystitis cystica Dysphagia Esophageal stricture Foreign body in bladder GERD without esophagitis Insomnia Neurogenic bladder Opioid dependence, uncomplicated Psychiatric care Restrictive lung disease Schizoaffective disorder, bipolar type Tardive dyskinesia Tobacco use disorder Urgency incontinence Surgical History H/O bladder repair surgery MESH REPAIR H/O colonoscopy with polypectomy H/O esophagogastroduodenoscopy (09/21/20) H/O: hysterectomy History of appendectomy History of breast biopsy History of foot surgery sx in 2009. Screws placed by Dr. Don. History of ureter stent Hx of cholecystectomy S/P bronchoscopy with biopsy Family History Mother No problems noted. Father No problems noted. Other Asthma Cancer Diabetes Heart disease Social History Smoking and tobacco status: current every day smoker cigarettes Packs smoked per day: 1 Years cigarettes smoked: 20 [ Other cigarette details: Hx of 1 PPD x 20 Years, started at age 27] Quit status (tobacco): considering quitting Second hand smoke exposure: Yes Smoking risk assessment/counseling performed?: No Alcohol intake: never Counseling given: No Counseling given: No Lives independently: Yes Household members: spouse Marital status: Number of children: 3 Current occupational status: disabled Current gender identity: Female Physical Exam Const: COMMON NORMALS: alert HENMT: COMMON NORMALS: normocephalic HEAD & SCALP: normocephalic Neck/C-Spine: COMMON NORMALS: full ROM Resp: COMMON NORMALS: normal respiratory effort Cardio: COMMON NORMALS: regular rate and regular rhythm RATE: regular rate RHYTHM: regular rhythm GI: COMMON NORMALS: Soft to palpation AUSCULTATION: Yes normoactive bowel sounds PALPATION: Yes Soft to palpation and Yes Tenderness to palpation present (GI) (General tenderness) Extremity: COMMON NORMALS: full ROM and no pedal edema Neuro: SENSORIUM/ORIENTATION: Yes alert Skin: COMMON NORMALS: turgor normal GENERAL SKIN EXAM: turgor normal Course Vital Signs: Vital signs: Vital Signs Temperature 97.7 F 08/28/22 23:03 Pulse Rate 57 L 08/28/22 23:48 Respiratory Rate 16 08/28/22 23:48 Blood Pressure 128/72 08/28/22 23:48 Pulse Oximetry 100 08/28/22 23:48 Oxygen Delivery Me thod 08/28/22 23:48 MDM - Abdominal Pain Medical Decision Making Patient comes in today with complaints of increased abdominal pain, diarrhea, and nausea and vomiting. On exam abdomen was soft with hyperactive bowel sounds. Vital signs were normal. Patient appears nontoxic. Patient has a recurrent history of abdominal pain. Differential diagnosis includes but not limited to irritable bowel syndrome, dehydration, infectious colitis. CBC and CMP were unremarkable. Patient was treated for her pain and nausea with promethazine and morphine. Patient was given 500 mL of saline for dehydration. Patient had improvement of symptoms and was discharged home with recommendations to follow-up with primary care. Lab Data 08/28/22 23:07 08/28/22 23: Labs/Radiology: Laboratory Results WBC 9.5 10^3/uL (4.0-10.0) 08/28/22 23: RBC 4.88 10^6/uL (4.1-5.3) 08/28/22 23: Hgb 15.2 g/dL (11.5-15.3) 08/28/22 23: Hct 47.0 % (37.0-47.0) 08/28/22 23: MCV 96.3 fl (81-99) 08/28/22 23: MCH 31.1 pg (28.0-34.0) 08/28/22 23: MCHC 32.3 g/dL (30.0-36.0) 08/28/22 23: RDW 14.5 % (12.1-15.1) 08/28/22 23: Plt Count 270 10^3/cmm (130-400) 08/28/22 23: MPV 10.0 fL (7.4-10.4) 08/28/22 23: Neut % (Auto) 65.2 % 08/28/22 23:07 Lymph % (Auto) 24.1 % 08/28/22 23:07 [place] % (Auto) 6.4 % 08/28/22 23: Eos % (Auto) 3.0 % 08/28/22 23:07 Baso % (Auto) 0.9 % 08/28/22 23: Neut # (Auto) 6.20 10^3/uL (1.8-7.7) 08/28/22 23: Lymph # (Auto) 2.3 10^3/uL (0.8-4.8) 08/28/22 23:07 [place] # (Auto) 0.6 10^3/uL (0.2-0.9) 08/28/22 23:07 Eos # (Auto) 0.3 10^3/uL (0.0-0.8) 08/28/22 23:07 Baso # (Auto) 0.1 10^3/uL (0.0-0.1) 08/28/22 23:07 Nucleated RBC % (auto) 0 % 08/28/22 23:07 Nucleated RBCs # 0.0 /100WBC 08/28/22 23:07 Sodium 141 mmol/L (136-145) 08/28/22 23:07 Potassium 3.9 mmol/L (3.5-5.1) 08/28/22 23:07 Chloride 104 mmol/L (98-107) 08/28/22 23:07 Carbon Dioxide 25 mmol/L (22-29) 08/28/22 23:07 Anion Gap 15.9 (5-19) 08/28/22 23:07 BUN 18 mg/dL (6-20) 08/28/22 23:07 Creatinine 1.0 mg/dL (0.5-0.9) H 08/28/22 23:07 GFR Calculation 57.8 mL/min (90-130) L 08/28/22 23:07 Glucose 99 mg/dL (65-115) 08/28/22 23:07 Calculated Osmolality 294 mOsm/kg (285-295) 08/28/22 23:07 Calcium 9.5 mg/dL (8.5-10.5) 08/28/22 23:07 Total Bilirubin 0.2 mg/dL (0.15-1.2) 08/28/22 23:07 AST 11 U/L (0-32) 08/28/22 23:07 ALT 9 U/L (0-33) 08/28/22 23:07 Alkaline Phosphatase 144 U/L (35-105) H 08/28/22 23:07 Total Protein 7.0 g/dL (6.6-8.7) 08/28/22 23:07 Albumin 4.3 g/dL (3.5-5.2) 08/28/22 23:07 Globulin 2.7 g/dL (1.3-4.6) 08/28/22 23:07 Lipase 21 U/L (13-60) 08/28/22 23:07 Discharge Plan Discharge Patient Disposition: Home Clinical Impression: Dehydration Diarrhea Qualifiers: Diarrhea type: functional diarrhea Qualified Code(s): K59.1 - Functional diarrhea Abdominal pain Qualifiers: Abdominal location: generalized Qualified Code(s): R10.84 - Generalized abdominal pain Condition: Stable Prescriptions: No Action Linzess 145 mcg capsule 145 mcg PO DAILY mirtazapine [Remeron] 15 mg tablet 15 mg PO .qhs Qty: 30 1RF Rx Instructions: Take one tablet daily at bedtime ayuevarlkliq-Ei-etfl-minerals 18-0.4 mg tablet PO nystatin 100,000 unit/gram powder 1 applic topical BID Qty: 30 0RF Rx Instructions: apply locally to B/L groin folds pantoprazole 40 mg tablet,delayed release (DR/EC) 40 mg PO DAILY@06 Qty: 90 0RF Ingrezza 80 mg capsule 80 mg PO DAILY@06 Qty: 30 0RF Rx Instructions: Take one capsule by mouth every morning lamotrigine 200 mg tablet 200 mg PO DAILY@06 Qty: 30 0RF Rx Instructions: Take one tablet by mouth every morning citalopram 40 mg tablet 40 mg PO .q am Qty: 30 0RF Rx Instructions: Take one tablet by mouth every morning Afrin (oxymetazoline) 0.05 % mist 2 spray intranasal Q12H PRN (Reason: nasal congestion) 3 Days Qty: 15 0RF albuterol sulfate 90 mcg/actuation HFA aerosol inhaler 2 puff inhalation Q6H PRN (Reason: shortness of breath or wheezing) acetaminophen 500 mg Tablet 1,000 mg PO Q6H PRN (Reason: Pain) Trelegy Ellipta 200-62.5-25 mcg blister with device 1 ea inhalation DAILY@06 Rx Instructions: STOP BREO AND IPRATROPIUM ondansetron 4 mg tablet,disintegrating 4 mg PO Q8H PRN (Reason: nausea and vomiting) Qty: 15 0RF ondansetron 4 mg tablet,disintegrating 4 mg PO Q6H PRN (Reason: nausea and vomiting) Qty: 14 0RF Discharge Orders: Discharge ED (Routine); Ordered 08/29/22 Ordered By: Roney Vann Referrals: Dara Tavera, TOOLING SPECIALIST [Primary Care Provider] - Patient Instructions: Pain Management Activity Restrictions/Additional Instructions: Home and rest. Drink plenty of fluids. Follow-up with GI specialist tomorrow. Return to ER for new concerns or worsening symptoms such as high fever, blood in vomit or stool, or severe pain. Coding Level of Care Code ED Casino Operations Supervisor for Shellie Guallpa
[2022-08-28 23:13] LABS: Basophils # 0.1 10^3/uL (0.0-0.1); Basophils % 0.9 %; Eosinophils # 0.3 10^3/uL (0.0-0.8); Hemoglobin 15.2 g/dL (11.5-15.3); Lymphocytes # 2.3 10^3/uL (0.8-4.8); Lymphocytes % 24.1 %; Mean Corpuscular HGB Conc 32.3 g/dL (30.0-36.0); Mean Corpuscular Hemoglobin 31.1 pg (28.0-34.0); Mean Corpuscular Volume 96.3 fl (81-99); Monocytes # 0.6 10^3/uL (0.2-0.9); Monocytes % 6.4 %; Neutrophils % 65.2 %; Nucleated Red Blood Cells % 0 %; Platelet Count 270 10^3/cmm (130-400); Red Blood Count 4.88 10^6/uL (4.1-5.3); Red Cell Distribution Width 14.5 % (12.1-15.1); White Blood Count 9.5 10^3/uL (4.0-10.0)
[2022-08-28 23:24] VITALS: RESP 16
[2022-08-28] MEDS: promethazine 25 mg/mL SDV 1 mL IM (23:24)
[2022-08-28] MEDS: morphine 4 mg/mL SDV 1 mL IVP (23:24)
[2022-08-28] MEDS: sodium chloride 0.9% 500 ML 999 ML IV (23:24)
[2022-08-28 23:31] LABS: Alanine Aminotransferase 9 U/L (0-33); Albumin Level 4.3 g/dL (3.5-5.2); Alkaline Phosphatase 144 U/L (35-105); Anion Gap 15.9 (5-19); Aspartate Amino Transferase 11 U/L (0-32); Blood Urea Nitrogen 18 mg/dL (6-20); Calcium 9.5 mg/dL (8.5-10.5); Carbon Dioxide 25 mmol/L (22-29); Chloride 104 mmol/L (98-107); Globulin 2.7 g/dL (1.3-4.6); Glomerular Filtration Rate 57.8 mL/min (90-130); Glucose 99 mg/dL (65-115); Lipase 21 U/L (13-60); Osmolality Calculated 294 mOsm/kg (285-295); Potassium 3.9 mmol/L (3.5-5.1); Sodium 141 mmol/L (136-145); Total Bilirubin 0.2 mg/dL (0.15-1.2)
[2022-08-28 23:48] VITALS: BP 128/72; PULSE 57; RESP 16; O2SAT 100
== END 2022-08-29 00:25 | disposition home or self-care (01) ==
PROVIDERS: Emergency Provider Nurse Practitioner Family; PCP Registered Nurse
DX: E86.0 Dehydration (principal); K59.1 Functional diarrhea; R10.84 Generalized abdominal pain; J44.9 Chronic obstructive pulmonary disease, unspecified; F17.210 Nicotine dependence, cigarettes, uncomplicated
CPT/HCPCS: 80053; 83690; 85025; 96361; 96372; 96374; 99284; J2270; J2550; J7040

== ENCOUNTER 2022-09-11 21:15 | Emergency (ER) | payer MEDICARE, MEDICAID, SELFPAY ==
[2022-09-11 21:16] VITALS: BP 104/66; PULSE 72; RESP 13; TEMP 36.7; O2SAT 96; BMI 30.6
--- NOTE | 2022-09-11 21:27 | ECG_ITS ---
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 Measurements Intervals [place] Rate: 69 P: 58 VA: 156 QRS: 31 QRSD: 94 T: 51 QT: 411 QTc: 443 Interpretive Statements SINUS RHYTHM Compared to ECG 08/25/2022 21:05:10 No significant changes Electronically Signed On 09-12-2022 11:30:38 CDT by Severo Aly M.D. [id number] f
--- NOTE | 2022-09-11 21:27 | XRR_ITS ---
PROCEDURE INFORMATION: Exam: XR Chest Exam date and time: 09/11/2022 9:51 PM Age: 56 years old Clinical indication: Pain; Chest pressure; Additional info: Chest pain TECHNIQUE: Imaging protocol: Radiologic exam of the chest. Views: 1 view. COMPARISON: CR (CHEST, ) 08/25/2022 7:28 PM FINDINGS: Lungs: Mildly hyperaerated lungs consistent with deep inspiratory effort vs reactive airway disease vs mild COPD . Pleural spaces: Unremarkable. No pleural effusion. No pneumothorax. Heart/Mediastinum: Unremarkable. No cardiomegaly. Bones/joints: Unremarkable. XR/XR chest 1V portable [id number] IMPRESSION: Mildly hyperaerated lungs consistent with deep inspiratory effort vs reactive airway disease vs mild COPD .
[2022-09-11 21:40] VITALS: BP 90/54; PULSE 73; RESP 14; O2SAT 96
[2022-09-11 22:12] LABS: Basophils # 0.1 10^3/uL (0.0-0.1); Basophils % 1.2 %; Eosinophils # 0.4 10^3/uL (0.0-0.8); Eosinophils % 4.3 %; Hematocrit 43.6 % (37.0-47.0); Hemoglobin 14.4 g/dL (11.5-15.3); Lymphocytes # 2.6 10^3/uL (0.8-4.8); Lymphocytes % 28.6 %; Mean Corpuscular Hemoglobin 31.3 pg (28.0-34.0); Mean Corpuscular Volume 94.8 fl (81-99); Mean Platelet Volume 10.2 fL (7.4-10.4); Monocytes # 0.6 10^3/uL (0.2-0.9); Monocytes % 6.6 %; Neutrophils # 5.42 10^3/uL (1.8-7.7); Neutrophils % 58.9 %; Nucleated Red Blood Cells % 0 %; Platelet Count 183 10^3/cmm (130-400); White Blood Count 9.2 10^3/uL (4.0-10.0)
[2022-09-11 22:34] LABS: D Dimer 0.35 ug/mIFEU (0-0.59)
[2022-09-11 22:39] LABS: Alanine Aminotransferase 13 U/L (0-33); Albumin Level 3.8 g/dL (3.5-5.2); Alkaline Phosphatase 121 U/L (35-105); Anion Gap 17.9 (5-19); Aspartate Amino Transferase 12 U/L (0-32); Blood Urea Nitrogen 19 mg/dL (6-20); Calcium 8.5 mg/dL (8.5-10.5); Carbon Dioxide 21 mmol/L (22-29); Chloride 107 mmol/L (98-107); Globulin 2.5 g/dL (1.3-4.6); Glomerular Filtration Rate 65.2 mL/min (90-130); Glucose 128 mg/dL (65-115); Osmolality Calculated 298 mOsm/kg (285-295); Potassium 3.9 mmol/L (3.5-5.1); Sodium 142 mmol/L (136-145); Total Bilirubin 0.2 mg/dL (0.15-1.2); Total Protein 6.3 g/dL (6.6-8.7)
[2022-09-11 22:40] LABS: Troponin(5th) Baseline 6 ng/L (0-10)
[2022-09-11 22:58] VITALS: BP 100/68; PULSE 62; RESP 10; O2SAT 95
--- NOTE | 2022-09-11 23:13 | ED_ITS ---
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 Chest pain described as moderate to mild aching in severity, located in the center of her chest and radiates to her back, not down her arms or into her neck. She had some mild transient nausea this no longer present. She does not have any associated diaphoresis emesis, GI symptoms, cough. States that the symptoms are improved since presenting to the emergency department and being roomed in the back of the emergency department. No known history of aortic disease no previous cardiac history. History of COPD and chronic bronchitis. [facility] ED PFSH: Medical History Bladder stone Borderline personality disorder Cannabis dependence, uncomplicated Chronic anxiety Chronic back pain greater than 3 months duration Chronic gastritis without bleeding COPD (chronic obstructive pulmonary disease) Cystitis cystica Dysphagia Esophageal stricture Foreign body in bladder GERD without esophagitis Insomnia Neurogenic bladder Opioid dependence, uncomplicated Psychiatric care Restrictive lung disease Schizoaffective disorder, bipolar type Tardive dyskinesia Tobacco use disorder Urgency incontinence Surgical History H/O bladder repair surgery MESH REPAIR H/O colonoscopy with polypectomy H/O esophagogastroduodenoscopy (09/21/20) H/O: hysterectomy History of appendectomy History of breast biopsy History of foot surgery sx in 2009. Screws placed by Dr. Don. History of ureter stent Hx of cholecystectomy S/P bronchoscopy with biopsy Family History Mother No problems noted. Father No problems noted. Other Asthma Cancer Diabetes Heart disease Social History Smoking and tobacco status: current every day smoker cigarettes Packs smoked per day: 1 Years cigarettes smoked: 20 [ Other cigarette details: Hx of 1 PPD x 20 Years, started at age 27] Quit status (tobacco): considering quitting Second hand smoke exposure: Yes Smoking risk assessment/counseling performed?: No Alcohol intake: never Counseling given: No Counseling given: No Lives independently: Yes Household members: spouse Marital status: Number of children: 3 Current occupational status: disabled Current gender identity: Female Physical Exam Narrative: EXAM NARRATIVE: No peripheral edema, bilateral clear breath sounds without rales or rhonchi, not coughing, well-appearing patient who is comfortable sitting in the bed. Normal heart sounds without murmurs rubs or gallops. Const: COMMON NORMALS: no acute distress, average body habitus and patient oriented x3 HENMT: COMMON NORMALS: normocephalic, atraumatic and Normal external nose present HEAD & SCALP: normocephalic and atraumatic NOSE: Normal external nose present and Normal nares present Eye: COMMON NORMALS: Equal, round and reactive pupils present PUPIL: Yes Equal, round and reactive pupils present Neuro: COMMON NORMALS: patient oriented x3 Course Vital Signs: Vital signs: Vital Signs Temperature 98.1 F 09/11/22 21:16 Pulse Rate 62 09/11/22 22:58 Respiratory Rate 10 L 09/11/22 22:58 Blood Pressure 100/68 09/11/22 22:58 Pulse Oximetry 95 09/11/22 22:58 Oxygen Delivery Me thod 09/11/22 22:58 MDM - Chest Pain Medical Decision Making 56-year-old female with sudden onset chest pain. Vitals nonactionable. Considered aortic dissection, pneumothorax, other cardiopulmonary pathology, ACS, URI, others. Social determinants of health include education, rule area. Patient had dimer below threshold without high risk features making acute dissection less likely at this time. Furthermore troponin negative. X-ray with indications of COPD which is no medical problem for her. Educated about find ings are as emergency room encounter and provided acetaminophen with improvement of her pain. Discharged with recommendation for routine follow-up and return if symptoms change in any way. Medical Records I reviewed the patient's medical records. Lab Data I reviewed the patient's lab results. 09/11/22 22:05 09/11/22 22:05 Radiology Impressions Chest X-Ray 09/11/22 21:27 IMPRESSION: Mildly hyperaerated lungs consistent with deep inspiratory effort vs reactive airway disease vs mild COPD . Laboratory Results WBC 9.2 10^3/uL (4.0-10.0) 09/11/22 22:05 RBC 4.60 10^6/uL (4.1-5.3) 09/11/22 22:05 Hgb 14.4 g/dL (11.5-15.3) 09/11/22 22: Hct 43.6 % (37.0-47.0) 09/11/22 22: MCV 94.8 fl (81-99) 09/11/22 22:05 MCH 31.3 pg (28.0-34.0) 09/11/22 22: MCHC 33.0 g/dL (30.0-36.0) 09/11/22 22: RDW 14.0 % (12.1-15.1) 09/11/22 22: Plt Count 183 10^3/cmm (130-400) 09/11/22 22: MPV 10.2 fL (7.4-10.4) 09/11/22 22:05 Neut % (Auto) 58.9 % 09/11/22: Lymph % (Auto) 28.6 % 09/11/22 22: [place] % (Auto) 6.6 % 09/11/22 22: Eos % (Auto) 4.3 % 09/11/22 22:05 Baso % (Auto) 1.2 % 09/11/22 22: Neut # (Auto) 5.42 10^3/uL (1.8-7.7) 09/11/22 22: Lymph # (Auto) 2.6 10^3/uL (0.8-4.8) 09/11/22 22:05 [place] # (Auto) 0.6 10^3/uL (0.2-0.9) 09/11/22 22: Eos # (Auto) 0.4 10^3/uL (0.0-0.8) 09/11/22 22:05 Baso # (Auto) 0.1 10^3/uL (0.0-0.1) 09/11/22 22: Nucleated RBC % (auto) 0 % 09/11/22: Nucleated RBCs # 0.0 /100WBC 09/11/22 22: D-Dimer 0.35 ug/mIFEU (0-0.59) 09/11/22 22: Sodium 142 mmol/L (136-145) 09/11/22 22: Potassium 3.9 mmol/L (3.5-5.1) 09/11/22 22:05 Chloride 107 mmol/L (98-107) 09/11/22 22:05 Carbon Dioxide 21 mmol/L (22-29) L 09/11/22 22:05 Anion Gap 17.9 (5-19) 09/11/22 22:05 BUN 19 mg/dL (6-20) 09/11/22 22:05 Creatinine 0.9 mg/dL (0.5-0.9) 09/11/22 22:05 GFR Calculation 65.2 mL/min (90-130) L 09/11/22 22:05 Glucose 128 mg/dL (65-115) H 09/11/22 22:05 Calculated Osmolality 298 mOsm/kg (285-295) H 09/11/22 22:05 Calcium 8.5 mg/dL (8.5-10.5) 09/11/22 22:05 Total Bilirubin 0.2 mg/dL (0.15-1.2) 09/11/22 22:05 AST 12 U/L (0-32) 09/11/22 22:05 ALT 13 U/L (0-33) 09/11/22 22:05 Alkaline Phosphatase 121 U/L (35-105) H 09/11/22 22:05 Troponin T Baseline 6 ng/L (0-10) 09/11/22 22:05 Troponin T 120 Minute 6.00 ng/L (0-10) 09/11/22 23:27 Delta Troponin T 0 ABS# (0-10) 09/11/22 23:27 Total Protein 6.3 g/dL (6.6-8.7) L 09/11/22 22:05 Albumin 3.8 g/dL (3.5-5.2) 09/11/22 22:05 Globulin 2.5 g/dL (1.3-4.6) 09/11/22 22:05 Discharge Plan Discharge Patient Disposition: Home Clinical Impression: Chest pain Condition: Stable Prescriptions: No Action Linzess 145 mcg capsule 145 mcg PO DAILY mirtazapine [Remeron] 15 mg tablet 15 mg PO .qhs Qty: 30 1RF Rx Instructions: Take one tablet daily at bedtime gudocgnuzghe-Eq-fmas-minerals 18-0.4 mg tablet PO nystatin 100,000 unit/gram powder 1 applic topical BID Qty: 30 0RF Rx Instructions: apply locally to B/L groin folds pantoprazole 40 mg tablet,delayed release (DR/EC) 40 mg PO DAILY@06 Qty: 90 0RF Ingrezza 80 mg capsule 80 mg PO DAILY@06 Qty: 30 0RF Rx Instructions: Take one capsule by mouth every morning lamotrigine 200 mg tablet 200 mg PO DAILY@06 Qty: 30 0RF Rx Instructions: Take one tablet by mouth every morning citalopram 40 mg tablet 40 mg PO .q am Qty: 30 0RF Rx Instructions: Take one tablet by mouth every morning Afrin (oxymetazoline) 0.05 % mist 2 spray intranasal Q12H PRN (Reason: nasal congestion) 3 Days Qty: 15 0RF albuterol sulfate 90 mcg/actuation HFA aerosol inhaler 2 puff inhalation Q6H PRN (Reason: shortness of breath or wheezing) acetaminophen 500 mg Tablet 1,000 mg PO Q6H PRN (Reason: Pain) Trelegy Ellipta 200-62.5-25 mcg blister with device 1 ea inhalation DAILY@06 Rx Instructions: STOP BREO AND IPRATROPIUM ondansetron 4 mg tablet,disintegrating 4 mg PO Q8H PRN (Reason: nausea and vomiting) Qty: 15 0RF ondansetron 4 mg tablet,disintegrating 4 mg PO Q6H PRN (Reason: nausea and vomiting) Qty: 14 0RF Discharge Orders: Discharge ED (Routine); Ordered 09/12/22 Ordered By: Vik Hogan Referrals: Dara Tavera, OFFICIAL COURT REPORTER [Primary Care Provider] - Discharge Diet: Advance as tolerated Discharge Activity: Resume usual activity Patient Instructions: Chest Pain (DC), Opioid Safety, Pain Management Activity Restrictions/Additional Instructions: Return to the emergency department if your symptoms or new symptoms return. F ollow-up with your regular physician. Coding Level of Care Code ED Scraper Meat for Shellie Guallpa
[2022-09-11] MEDS: acetaminophen 500 mg Tablet 1000 MG PO (23:40)
[2022-09-12 00:33] LABS: Troponin 5 2HR Delta 0 ABS# (0-10)
== END 2022-09-12 00:28 | disposition home or self-care (01) ==
PROVIDERS: Emergency Provider General Practice; PCP Registered Nurse
DX: R07.9 Chest pain, unspecified (principal); F17.210 Nicotine dependence, cigarettes, uncomplicated; J44.9 Chronic obstructive pulmonary disease, unspecified
CPT/HCPCS: 36415; 71045; 80053; 84484; 85025; 85378; 93005; 99285

== ENCOUNTER 2022-09-12 04:57 | Emergency (ER) | payer MEDICARE, MEDICAID, SELFPAY ==
[2022-09-12 05:05] VITALS: BP 135/71; PULSE 86; RESP 18; TEMP 36.8; O2SAT 100; BMI 30.6
--- NOTE | 2022-09-12 05:07 | ECG_ITS ---
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 Measurements Intervals [place] Rate: 76 P: 65 PA: 153 QRS: 67 QRSD: 97 T: 61 QT: 418 QTc: 470 Interpretive Statements SINUS RHYTHM Compared to ECG 09/11/2022 21:21:05 No significant changes Electronically Signed On 09-12-2022 11:31:58 CDT by Severo Aly M.D. [id number]
[2022-09-12] MEDS: ondansetron 2 mg/ML SDV 2 mL 4 MG IM (06:09)
[2022-09-12] MEDS: HYDROmorphone 1 mg/mL INJ 1 mL IM (06:10)
[2022-09-12] MEDS: lidocaine 2% viscous 15 ML, aluminum-mag hydrox-simethicon 30 ML, sucralfate oral liq 1 GM PO (06:14)
--- NOTE | 2022-09-12 06:16 | W.ED.CHESTPA ---
HPI - Chest Pain General: Chief Complaint: Chest Pain Stated Complaint: Chest Pains\Fells like she is going to pass out Time Seen by Provider: 09/12/22 05:19 History of Present Illness: 56-year-old female who was seen last night for chest discomfort. Her work-up including 2-hour delta troponin, EKG, chest x-ray, D-dimer, and normal laboratories was essentially negative. She sat in the waiting room waiting for her ride this morning, and decided that she needed to check back in because her chest pain came back. She states that she vomited about 6 times in the bathroom in the waiting room. I have no corroborative proof of this. She states that when she began to feel like she was going to pass out because her pain was so bad, she reregistered to be seen again. Associated symptoms: Deny abdominal pain, dyspnea, fever(s), nausea, palpitations or vomiting Review of Systems Const: Denies: fever(s) Card: Denies: palpitations Resp: Denies: dyspnea GI: Denies: abdominal pain, nausea or vomiting [facility] ED PFSH: Medical History Bladder stone Borderline personality disorder Cannabis dependence, uncomplicated Chronic anxiety Chronic back pain greater than 3 months duration Chronic gastritis without bleeding COPD (chronic obstructive pulmonary disease) Cystitis cystica Dysphagia Esophageal stricture Foreign body in bladder GERD without esophagitis Insomnia Neurogenic bladder Opioid dependence, uncomplicated Psychiatric care Restrictive lung disease Schizoaffective disorder, bipolar type Tardive dyskinesia Tobacco use disorder Urgency incontinence Surgical History H/O bladder repair surgery MESH REPAIR H/O colonoscopy with polypectomy H/O esophagogastroduodenoscopy (09/21/20) H/O: hysterectomy History of appendectomy History of breast biopsy History of foot surgery sx in 2009. Screws placed by Dr. Don. History of ureter stent Hx of cholecystectomy S/P bronchoscopy with biopsy Family History Mother No problems noted. Father No problems noted. Other Asthma Cancer Diabetes Heart disease Social History Smoking and tobacco status: current every day smoker cigarettes Packs smoked per day: 1 Years cigarettes smoked: 20 [ Other cigarette details: Hx of 1 PPD x 20 Years, started at age 27] Quit status (tobacco): considering quitting Second hand smoke exposure: Yes Smoking risk assessment/counseling performed?: No Alcohol intake: never Counseling given: No Counseling given: No Lives independently: Yes Household members: spouse Marital status: Number of children: 3 Current occupational status: disabled Current gender identity: Female Physical Exam Const: COMMON NORMALS: no acute distress GENERAL APPEARANCE: cooperative; not ill appearing and not frail appearing HENMT: COMMON NORMALS: normocephalic, atraumatic and Normal external nose present HEAD & SCALP: normocephalic and atraumatic FACE & SINUS: normal facial exam and face symmetric NOSE: Normal external nose present Eye: COMMON NORMALS: Equal, round and reactive pupils present and EOMs intact bilaterally PUPIL: Yes Equal, round and reactive pupils present Neck/C-Spine: GENERAL: Yes trachea midline Chest: CHEST: Yes Symmetrical chest wall rise Resp: COMMON NORMALS: normal respiratory effort, No retractions, No use of accessory muscles and clear to auscultation bilaterally AUSCULTATION: clear to auscultation bilaterally Cardio: COMMON NORMALS: regular rate and regular rhythm RATE: regular rate RHYTHM: regular rhythm GI: COMMON NORMALS: Normal to inspection, nondistended, normoactive bowel sounds present Extremity: COMMON NORMALS: no pedal edema Neuro: JEANINE COMA SCALE: document GCS findings Jeanine coma scale eye opening: Spontaneous Jeanine coma scale verbal response: Orientated Jeainne coma scale motor response: Obey commands Jeanine coma scale total score: 15 SENSORY EXAM: Yes extremities (intact) Psych: COMMON NORMALS: speech normal SPEECH: Yes normal speech Skin: COMMON NORMALS: no rashes or lesions noted GENERAL SKIN EXAM: no rashes or lesions noted Course Vital Signs: Vital signs: Vital Signs Temperature 98.3 F 09/12/22 05:05 Pulse Rate 86 09/12/22 05:05 Respiratory Rate 18 09/12/22 05:05 Blood Pressure 135/71 09/12/22 05:05 Pulse Oximetry 100 09/12/22 05:05 Oxygen Delivery Me thod 09/12/22 05:05 MDM - Chest Pain Medical Decision Making This patient's work-up a few hours ago was negative for her chest discomfort. Nothing is essentially changed. I repeated an EKG showing a sinus rhythm with normal axis, intervals, and a rate of 75. There are no ST changes. She has received IM Dilaudid and Zofran as well as a GI cocktail she is tender in the belly. This is slowly for symptom control, as it is common with this patient. She will be allowed discharge back to the waiting room. Discharge Plan Discharge Patient Disposition: Home Clinical Impression: Chest pain Condition: Stable Prescriptions: Continued ondansetron 4 mg tablet,disintegrating 4 mg PO Q8H PRN (Reason: nausea and vomiting) Qty: 15 0RF Discontinued ondansetron 4 mg tablet,disintegrating 4 mg PO Q6H PRN (Reason: nausea and vomiting) Qty: 14 0RF No Action Linzess 145 mcg capsule 145 mcg PO DAILY mirtazapine [Remeron] 15 mg tablet 15 mg PO .qhs Qty: 30 1RF Rx Instructions: Take one tablet daily at bedtime ovireikbmhuj-Ky-lhnt-minerals 18-0.4 mg tablet PO nystatin 100,000 unit/gram powder 1 applic topical BID Qty: 30 0RF Rx Instructions: apply locally to B/L groin folds pantoprazole 40 mg tablet,delayed release (DR/EC) 40 mg PO DAILY@06 Qty: 90 0RF Ingrezza 80 mg capsule 80 mg PO DAILY@06 Qty: 30 0RF Rx Instructions: Take one capsule by mouth every morning lamotrigine 200 mg tablet 200 mg PO DAILY@06 Qty: 30 0RF Rx Instructions: Take one tablet by mouth every morning citalopram 40 mg tablet 40 mg PO .q am Qty: 30 0RF Rx Instructions: Take one tablet by mouth every morning Afrin (oxymetazoline) 0.05 % mist 2 spray intranasal Q12H PRN (Reason: nasal congestion) 3 Days Qty: 15 0RF albuterol sulfate 90 mcg/actuation HFA aerosol inhaler 2 puff inhalation Q6H PRN (Reason: shortness of breath or wheezing) acetaminophen 500 mg Tablet 1,000 mg PO Q6H PRN (Reason: Pain) Trelegy Ellipta 200-62.5-25 mcg blister with device 1 ea inhalation DAILY@06 Rx Instructions: STOP BREO AND IPRATROPIUM Discharge Orders: Discharge ED (Routine); Ordered 09/12/22 Ordered By: Chvio Deleon Referrals: Dara Tavera FNP [Primary Care Provider] - 4-7 days Patient Instructions: Chest Pain (ED) Activity Restrictions/Additional Instructions: As your work-up was completed a few hours ago, there is no need for further testing in the emergency department. Your EKG remains normal. Medications were for symptom control. You are allowed discharge home. Follow-up with your doctor this week. Drink plenty of fluids. Coding Level of Care Code ED Technology Specialist for Shellie Guallpa
== END 2022-09-12 06:30 | disposition home or self-care (01) ==
PROVIDERS: Emergency Provider Emergency Medicine; PCP Registered Nurse
DX: R07.9 Chest pain, unspecified (principal); F17.210 Nicotine dependence, cigarettes, uncomplicated; J44.9 Chronic obstructive pulmonary disease, unspecified
CPT/HCPCS: 93005; 96372; 99284; J1170; J2405

== ENCOUNTER 2022-09-27 22:34 | Emergency (ER) | payer MEDICARE, MEDICAID, SELFPAY ==
[2022-09-27 22:37] VITALS: BP 117/69; PULSE 86; RESP 20; TEMP 37.1; O2SAT 93; BMI 30.6
--- NOTE | 2022-09-27 22:44 | W.ED.NAVMDI ---
HPI - Nausea/Vomiting/Diarrhea General: Chief complaint: Nausea/Vomiting/Diarrhea Stated complaint: n/v/d Time Seen by Provider: 09/27/22 22:44 History of Present Illness: Ms. Wilhelm is a 56-year-old lady with complex past medical history presenting to the emergency department for abdominal pain with nausea, vomiting, diarrhea. She reports typically following with a ?GI doctor in [place]. She reports 4 days of gradual onset worsening symptoms with numerous episodes of nonbilious nonbloody emesis and nonbloody diarrhea that is watery. Notes associated generalized abdominal cramping. Worse symptoms with any p.o. intake. Intensity is moderate to severe. No other specific changes in health, exacerbating, or alleviating factors identified. Onset (ago): day(s) Description of vomiting: watery Description of diarrhea: watery Associated nausea: Yes Associated abdominal pain: Yes Location of pain: Diffuse Severity: mild Quality: cramping Exacerbating factors: eating Associated symtoms: Reports nausea Review of Systems General: Reports: 10 or more systems reviewed and unremarkable except in HPI and below GI: Reports: nausea PFSH ED PFSH: Medical History Bladder stone Borderline personality disorder Cannabis dependence, uncomplicated Chronic anxiety Chronic back pain greater than 3 months duration Chronic gastritis without bleeding COPD (chronic obstructive pulmonary disease) Cystitis cystica Dysphagia Esophageal stricture Foreign body in bladder GERD without esophagitis Insomnia Neurogenic bladder Opioid dependence, uncomplicated Psychiatric care Restrictive lung disease Schizoaffective disorder, bipolar type Tardive dyskinesia Tobacco use disorder Urgency incontinence Surgical History H/O bladder repair surgery MESH REPAIR H/O colonoscopy with polypectomy H/O esophagogastroduodenoscopy (09/21/20) H/O: hysterectomy History of appendectomy History of breast biopsy History of foot surgery sx in 2009. Screws placed by Dr. Don. History of ureter stent Hx of cholecystectomy S/P bronchoscopy with biopsy Family History Mother No problems noted. Father No problems noted. Other Asthma Cancer Diabetes Heart disease Social History Smoking and tobacco status: current every day smoker cigarettes Packs smoked per day: 1 Years cigarettes smoked: 20 [ Other cigarette details: Hx of 1 PPD x 20 Years, started at age 27] Quit status (tobacco): considering quitting Second hand smoke exposure: Yes Smoking risk assessment/counseling performed?: No Alcohol intake: never Counseling given: No Substance/Drug Use: former Counseling given: No Lives independently: Yes Household members: spouse Marital status: Number of children: 3 Current occupational status: disabled Current gender identity: Female Physical Exam Const: COMMON NORMALS: alert GENERAL APPEARANCE: cooperative and well developed HENMT: COMMON NORMALS: normocephalic and atraumatic HEAD & SCALP: normocephalic and atraumatic Eye: COMMON NORMALS: conjunctivae normal CONJUNCTIVA: Yes conjunctivae normal SCLERA: sclerae normal Neck/C-Spine: COMMON NORMALS: supple GENERAL: Yes trachea midline Resp: COMMON NORMALS: clear to auscultation bilaterally EFFORT & INSPECTION: Yes able to speak in complete sentences AUSCULTATION: clear to auscultation bilaterally Cardio: COMMON NORMALS: regular rate and regular rhythm RATE: regular rate RHYTHM: regular rhythm GI: COMMON NORMALS: Soft to palpation PALPATION: Yes Soft to palpation and Yes Tenderness to palpation present (GI) Extremity: GENERAL: Yes normal exam except as noted and No edema Neuro: COMMON NORMALS: moves all extremities SENSORIUM/ORIENTATION: Yes alert and No Orientation impaired Psych: COMMON NORMALS: mental status grossly normal and Normal thought process present THOUGHT PROCESS: Normal thought process present Course Vital Signs: Vital signs: Vital Signs Temperature 98.7 F 09/27/22 22:37 Pulse Rate 68 09/28/22 01:21 Respiratory Rate 16 09/28/22 01:21 Blood Pressure 104/57 09/28/22 01:21 Pulse Oximetry 98 09/28/22 01:21 Oxygen Delivery Me thod Room Air 09/27/22 22:37 MDM - Nausea/Vomiting/Diarrhea Medical Decision Making 56-year-old lady with chronic abdominal issues presenting with abdominal symptoms. Exam as above. Abdominal tenderness with no evidence of acute surgical abdomen. Labs with leukocytosis, normal hemoglobin. Metabolic panel with mild evidence of dehydration. No UTI. CT demonstrates no acute findings to explain symptoms. Incidental findings discussed with patient. Patient treated with Compazine, fluids, morphine and improved. She is able to tolerate p.o. intake. The results of ED evaluation were discussed with the patient including prescriptions and/or symptomatic cares (if applicable) including appropriate and responsible use, followup plan, and return precautions. The patient verbalized understanding and felt safe for discharge. Medical Records I reviewed the patient's medical records. Lab Data I reviewed the patient's lab results. 09/27/22 22:52 09/27/22 22:52 Radiology Impressions Abdomen/Pelvis CT 09/27/22 23:34 IMPRESSION: 1. Negative for acute inflammatory process in the abdomen or pelvis. 2. Cholecystectomy. 3. Right kidney punctate nonobstructing calyceal stone. 4. Constipation. Laboratory Results WBC 24.1 10^3/uL (4.0-10.0) H 09/27/22 22:52 RBC 4.76 10^6/uL (4.1-5.3) 09/27/22 22:52 Hgb 14.9 g/dL (11.5-15.3) 09/27/22 22:52 Hct 44.6 % (37.0-47.0) 09/27/22 22:52 MCV 93.7 fl (81-99) 09/27/22 22:52 MCH 31.3 pg (28.0-34.0) 09/27/22 22:52 MCHC 33.4 g/dL (30.0-36.0) 09/27/22 22:52 RDW 14.5 % (12.1-15.1) 09/27/22 22:52 Plt Count 225 10^3/cmm (130-400) 09/27/22 22:52 MPV 9.9 fL (7.4-10.4) 09/27/22 22:52 Neut % (Auto) 83.7 % 09/27/22 22:52 Lymph % (Auto) 11.0 % 09/27/22 22:52 Thomas % (Auto) 3.2 % 09/27/22 22:52 Eos % (Auto) 1.3 % 09/27/22 22:52 Baso % (Auto) 0.4 % 09/27/22 22:52 Neut # (Auto) 20.19 10^3/uL (1.8-7.7) H 09/27/22 22:52 Lymph # (Auto) 2.7 10^3/uL (0.8-4.8) 09/27/22 22:52 Thomas # (Auto) 0.8 10^3/uL (0.2-0.9) 09/27/22 22:52 Eos # (Auto) 0.3 10^3/uL (0.0-0.8) 09/27/22 22:52 Baso # (Auto) 0.1 10^3/uL (0.0-0.1) 09/27/22 22:52 Nucleated RBC % (auto) 0 % 09/27/22 22:52 Nucleated RBCs # 0.0 /100WBC 09/27/22 22:52 Sodium 138 mmol/L (136-145) 09/27/22 22:52 Potassium 4.2 mmol/L (3.5-5.1) 09/27/22 22:52 Chloride 105 mmol/L (98-107) 09/27/22 22:52 Carbon Dioxide 21 mmol/L (22-29) L 09/27/22 22:52 Anion Gap 16.2 (5-19) 09/27/22 22:52 BUN 14 mg/dL (6-20) 09/27/22 22:52 Creatinine 1.3 mg/dL (0.5-0.9) H 09/27/22 22:52 GFR Calculation 42.7 mL/min (90-130) L 09/27/22 22:52 Glucose 98 mg/dL (65-115) 09/27/22 22:52 Calculated Osmolality 286 mOsm/kg (285-295) 09/27/22 22:52 Lactic Acid 1.1 mmol/L (0.5-2.2) 09/27/22 22:52 Calcium 9.2 mg/dL (8.5-10.5) 09/27/22 22:52 Total Bilirubin 0.3 mg/dL (0.15-1.2) 09/27/22 22:52 AST 11 U/L (0-32) 09/27/22 22:52 ALT 8 U/L (0-33) 09/27/22 22:52 Alkaline Phosphatase 121 U/L (35-105) H 09/27/22 22:52 Total Protein 6.7 g/dL (6.6-8.7) 09/27/22 22:52 Albumin 3.8 g/dL (3.5-5.2) 09/27/22 22:52 Globulin 2.9 g/dL (1.3-4.6) 09/27/22 22:52 Lipase 22 U/L (13-60) 09/27/22 22:52 Urine Color Yellow (Yellow) 09/27/22 23:00 Urine Appearance Clear (CLEAR) 09/27/22 23:00 Urine pH 6 (5-7) 09/27/22 23:00 Ur Specific [place] 1.015 (1.005-1.030) 09/27/22 23:00 Urine Protein Neg (Negative) 09/27/22 23:00 Urine Glucose (UA) Norm (Normal) 09/27/22 23:00 Urine Ketones Negative (Negative) 09/27/22 23:00 Urine Blood Neg (Negative) 09/27/22 23:00 Urine Nitrate Negative (Negative) 09/27/22 23:00 Urine Bilirubin Neg (Negative) 09/27/22 23:00 Urine Urobilinogen Neg mg/dL (Negative) 09/27/22 23:00 Ur Leukocyte Esterase Negative (Negative) 09/27/22 23:00 Discharge Plan Discharge Patient Disposition: Home Clinical Impression: Abdominal pain, Leukocytosis, Nausea vomiting and diarrhea Condition: Stable Prescriptions: New Compazine 25 mg suppository 25 mg DE Q12H PRN (Reason: nausea and vomiting) Qty: 12 0RF No Action montelukast [Singulair] 10 mg tablet 10 mg PO DAILY 90 Days Qty: 90 0RF albuterol sulfate 90 mcg/actuation HFA aerosol inhaler 2 puff inhalation Q6H PRN (Reason: shortness of breath or wheezing) 30 Days Qty: 8.5 0RF cmufkygtmoab-Mh-qidx-minerals 18-0.4 mg tablet PO Ingrezza 80 mg capsule 80 mg PO .hs Qty: 30 1RF Rx Instructions: Take one capsule by mouth every morning citalopram 40 mg tablet 40 mg PO .q am Qty: 30 1RF Rx Instructions: Take one tablet by mouth every morning lamotrigine 200 mg tablet 200 mg PO DAILY@06 Qty: 30 1RF Rx Instructions: Take one tablet by mouth every morning mirtazapine [Remeron] 15 mg tablet 7.5 mg PO .qhs Qty: 15 1RF Rx Instructions: Take one-half tablet daily at bedtime nystatin 100,000 unit/gram powder 1 applic topical BID Qty: 30 0RF Rx Instructions: apply locally to B/L groin folds Afrin (oxymetazoline) 0.05 % mist 2 spray intranasal Q12H PRN (Reason: nasal congestion) 3 Days Qty: 15 0RF pantoprazole 40 mg tablet,delayed release (DR/EC) See Rx Instructions .ROUTE .COMPLEX Qty: 90 0RF Dose Instruction: TAKE 1 TABLET BY MOUTH DAILY AT 6 AM Rx Instructions: TAKE 1 TABLET BY MOUTH DAILY AT 6 AM acetaminophen 500 mg Tablet 1,000 mg PO Q6H PRN (Reason: Pain) Trelegy Ellipta 200-62.5-25 mcg blister with device 1 ea inhalation DAILY@06 Rx Instructions: STOP BREO AND IPRATROPIUM ondansetron 4 mg tablet,disintegrating 4 mg PO Q8H PRN (Reason: nausea and vomiting) Qty: 15 0RF Discharge Orders: Discharge ED (Routine); Ordered 09/28/22 Ordered By: Anshul Ames Referrals: Dara Tavera FNP [Primary Care Provider] - Discharge Diet: Clear Liquid Discharge Activity: Increase activity as tolerated Patient Instructions: Prochlorperazine (Into the rectum) (Compazine, Compro), Dehydration (ED), Leukocytosis (ED), Abdominal Pain (ED), Opioid Safety Activity Restrictions/Additional Instructions: Thank you for visiting the emergency department. You were seen antibiotic for abdominal pain and nausea and vomiting and diarrhea. The exact cause of your symptoms is unclear but does not appear to need hospitalization at this time. You are found of mild dehydration as discussed. Please ensure that you are staying hydrated and start with clear liquid diet and advance to bland diet as tolerated. You may use genr-nib-peufnrf medications such as acetaminophen and ibuprofen for pain however please do not exceed the daily recommended dosage as listed on the packaging and please keep in mind that many namebrand medications contain the same active ingredients. Please avoid these medications if previously instructed to do so by another physician due to other underlying medical condition. I will prescribe antinausea medication. Do not take this at the same time as your other antinausea medications. Follow-up with a primary care provider. Return to the emergency department for worsening or uncontrolled symptoms or anything else that you are concerned about and feel needs emergency department evaluation. Coding Level of Care Code ED Baling Press Operator for Shellie Guallpa
[2022-09-27 22:51] VITALS: BP 117/69; PULSE 70; RESP 13; O2SAT 90
[2022-09-27 22:58] LABS: Basophils # 0.1 10^3/uL (0.0-0.1); Basophils % 0.4 %; Eosinophils # 0.3 10^3/uL (0.0-0.8); Eosinophils % 1.3 %; Hematocrit 44.6 % (37.0-47.0); Hemoglobin 14.9 g/dL (11.5-15.3); Lymphocytes # 2.7 10^3/uL (0.8-4.8); Mean Corpuscular HGB Conc 33.4 g/dL (30.0-36.0); Mean Corpuscular Hemoglobin 31.3 pg (28.0-34.0); Mean Corpuscular Volume 93.7 fl (81-99); Mean Platelet Volume 9.9 fL (7.4-10.4); Monocytes # 0.8 10^3/uL (0.2-0.9); Monocytes % 3.2 %; Neutrophils # 20.19 10^3/uL (1.8-7.7); Neutrophils % 83.7 %; Nucleated Red Blood Cells % 0 %; Platelet Count 225 10^3/cmm (130-400); Red Blood Count 4.76 10^6/uL (4.1-5.3); Red Cell Distribution Width 14.5 % (12.1-15.1); White Blood Count 24.1 10^3/uL (4.0-10.0)
[2022-09-27 23:06] LABS: Add Urine Microscopic? NO; Charge for UA Resulting for Rev
[2022-09-27 23:09] LABS: Bilirubin Urine Neg (Negative); Blood Urine Neg (Negative); Glucose Urine UA Norm (Normal); Ketones Urine Negative (Negative); Leukocyte Esterase Urine Negative (Negative); Nitrate Urine Negative (Negative); Protein Urine Neg (Negative); Specific Gravity, Urine 1.015 (1.005-1.030); Urine Appearance Clear (CLEAR); Urine Color Yellow (Yellow); Urobilinogen Urine Neg (Negative); pH Urine 6 (5-7)
[2022-09-27 23:15] VITALS: RESP 24
[2022-09-27] MEDS: morphine 4 mg/mL SDV 1 mL IVP (23:15)
[2022-09-27] MEDS: prochlorperazine 10 mg/2 mL Inj IVP (23:15)
[2022-09-27 23:19] VITALS: BP 104/72; PULSE 77; RESP 18; O2SAT 93
[2022-09-27 23:19] LABS: Alanine Aminotransferase 8 U/L (0-33); Albumin Level 3.8 g/dL (3.5-5.2); Alkaline Phosphatase 121 U/L (35-105); Anion Gap 16.2 (5-19); Aspartate Amino Transferase 11 U/L (0-32); Blood Urea Nitrogen 14 mg/dL (6-20); Calcium 9.2 mg/dL (8.5-10.5); Carbon Dioxide 21 mmol/L (22-29); Chloride 105 mmol/L (98-107); Globulin 2.9 g/dL (1.3-4.6); Glomerular Filtration Rate 42.7 mL/min (90-130); Glucose 98 mg/dL (65-115); Lipase 22 U/L (13-60); Osmolality Calculated 286 mOsm/kg (285-295); Potassium 4.2 mmol/L (3.5-5.1); Sodium 138 mmol/L (136-145); Total Bilirubin 0.3 mg/dL (0.15-1.2); Total Protein 6.7 g/dL (6.6-8.7)
[2022-09-27] MEDS: sodium chloride 0.9% 1,000 ML 999 ML IV (23:29)
[2022-09-27 23:31] LABS: Lactic Sepsis W/Reflex 1.1 mmol/L (0.5-2.2)
--- NOTE | 2022-09-27 23:34 | CTR_ITS ---
PROCEDURE INFORMATION: Exam: CT Abdomen And Pelvis Without Contrast Exam date and time: 09/28/2022 12:21 AM Age: 56 years old Clinical indication: Nausea and vomiting; Abdominal pain; Generalized; Prior surgery; Surgery type: Breast biopsy. Gb. Appy. Hysterectomy. Bladder mesh. Patient HX: C/O diffuse abd pain with n/v/d. ; Additional info: N/v/d, generalized abd pain TECHNIQUE: Imaging protocol: Computed tomography of the abdomen and pelvis without contrast. Radiation optimization: All CT scans at this facility use at least one of these dose optimization techniques: automated exposure control; mA and/or kV adjustment per patient size (includes targeted exams where dose is matched to clinical indication); or iterative reconstruction. REPORTING DATA: Count of CT and Cardiac NM exams in prior 12 months: This patient has received 6 known CTs and 0 known cardiac nuclear medicine studies in the 12 months prior to the current study. COMPARISON: CT kidney stone [id number] 05/01/2022 11:12 PM RADIATION DOSE METRICS: Total DLP (mGy-cm): 713.83 FINDINGS: Liver: Normal. No mass. Gallbladder and bile ducts: Cholecystectomy. Pancreas: Normal. No ductal dilation. Spleen: Normal. No splenomegaly. Adrenal glands: Normal. No mass. Kidneys and ureters: Right kidney punctate nonobstructing calyceal stone. Stomach and bowel: Constipation. Appendix: No evidence of appendicitis. Intraperitoneal space: Unremarkable. No free air. No significant fluid collection. Vasculature: Unremarkable. No abdominal aortic aneurysm. Lymph nodes: Unremarkable. No enlarged lymph nodes. Urinary bladder: Unremarkable as visualized. Reproductive: Unremarkable as visualized. Bones/joints: Unremarkable. No acute fracture. Soft tissues: Unremarkable. CT/CT abdomen pelvis wo con [id number] IMPRESSION: 1. Negative for acute inflammatory process in the abdomen or pelvis. 2. Cholecystectomy. 3. Right kidney punctate nonobstructing calyceal stone. 4. Constipation.
[2022-09-28] VITALS: BP 90/41; PULSE 60; RESP 14; O2SAT 94
[2022-09-28 01:21] VITALS: BP 104/57; PULSE 68; RESP 16; O2SAT 98
== END 2022-09-28 01:22 | disposition home or self-care (01) ==
PROVIDERS: Emergency Provider Emergency Medicine; PCP Registered Nurse
DX: R10.84 Generalized abdominal pain (principal); D72.829 Elevated white blood cell count, unspecified; R11.2 Nausea with vomiting, unspecified; R19.7 Diarrhea, unspecified; K59.00 Constipation, unspecified; F17.210 Nicotine dependence, cigarettes, uncomplicated; J44.9 Chronic obstructive pulmonary disease, unspecified
CPT/HCPCS: 74176; 80053; 81003; 83605; 83690; 85025; 96361; 96374; 96375; 99285; J0780; J2270; J7030

== ENCOUNTER 2022-10-15 08:47 | Emergency (ER) | payer MEDICARE, MEDICAID, SELFPAY ==
[2022-10-15 08:51] VITALS: BP 104/65; PULSE 78; RESP 15; O2SAT 94
--- NOTE | 2022-10-15 09:11 | ED_ITS ---
HPI - Abdominal Pain General: Chief Complaint: Abdominal Pain Stated Complaint: ABD PAIN Time Seen by Provider: 10/15/22 09:00 Source: patient Mode of arrival: ambulatory History of Present Illness: 56-year-old female presents to the emergency room with complaints of abdominal discomfort. This been a chronic problem she has a gastric emptying study scheduled. She said multiple previous CTs none of which are showed any signif icant pathology. No hematochezia melena hematemesis or coffee-ground emesis. No dysuria urgency or frequency denies chest pain or shortness of breath. MD elicited complaint: abdominal pain Onset (ago): day(s) (3) Severity: moderate Quality: cramping Radiation: none Exacerbating factors: nothing Relieving factors: nothing Associated Symptoms: Denies anorexia, belching, bloating, change in bowel habits, change in stool character, chills, coffee ground emesis, constipation, GI cramping, diarrhea, dyspepsia, dysuria, excessive flatus, fever(s), heartburn, hematochezia, hematuria, hematemesis, fecal incontinence, loose stools, melena, nausea, poor appetite, syncope and vomiting Review of Systems Const: Denies: fever(s), chills, fatigue or malaise ENMT: Denies: throat pain, ear or mastoid pain, nasal discharge or nasal congestion Card: Denies: chest pain, palpitations, irregular heart rhythm or syncope Resp: Denies: dyspnea, productive cough or non-productive cough GI: Reports: abdominal pain; Denies: nausea, vomiting, hematemesis, coffee ground emesis, heartburn, di arrhea, constipation, bloating, GI cramping, belching, excessive flatus, fecal incontinence, change in bowel habits, change in stool character, hematochezia or melena : Denies: flank pain, dysuria, urinary frequency, urinary urgency or hematuria Skin/Breast: Denies: rash or pruritus PFSH ED PFSH: Medical History Bladder stone Borderline personality disorder Cannabis dependence, uncomplicated Chronic anxiety Chronic back pain greater than 3 months duration Chronic gastritis without bleeding COPD (chronic obstructive pulmonary disease) Cystitis cystica Dysphagia Esophageal stricture Foreign body in bladder GERD without esophagitis Insomnia Neurogenic bladder Opioid dependence, uncomplicated Psychiatric care Restrictive lung disease Schizoaffective disorder, bipolar type Tardive dyskinesia Tobacco use disorder Urgency incontinence Surgical History H/O bladder repair surgery MESH REPAIR H/O colonoscopy with polypectomy H/O esophagogastroduodenoscopy (09/21/20) H/O: hysterectomy History of appendectomy History of breast biopsy History of foot surgery sx in 2009. Screws placed by Dr. Don. History of ureter stent Hx of cholecystectomy S/P bronchoscopy with biopsy Family History Mother No problems noted. Father No problems noted. Other Asthma Cancer Diabetes Heart disease Social History Smoking and tobacco status: current every day smoker cigarettes Packs smoked per day: 1 Years cigarettes smoked: 20 [ Other cigarette details: Hx of 1 PPD x 20 Years, started at age 27] Quit status (tobacco): considering quitting Second hand smoke exposure: Yes Smoking risk assessment/counseling performed?: No Alcohol intake: never Counseling given: No Substance/Drug Use: former Counseling given: No Lives independently: Yes Household members: spouse Marital status: Number of children: 3 Current occupational status: disabled Do you think of yourself as: Straight/Heterosexual Current gender identity: Female Physical Exam Const: GENERAL APPEARANCE: cooperative and comfortable ORIENTATION/CONSCIOUSNESS: Yes awake, Yes oriented to person, Yes oriented to place and Yes oriented to time HENMT: COMMON NORMALS: normocephalic, atraumatic and hearing grossly normal bilaterally HEAD & SCALP: normocephalic and atraumatic Resp: COMMON NORMALS: normal respiratory effort, No retractions, No use of accessory muscles and clear to auscultation bilaterally AUSCULTATION: clear to auscultation bilaterally Cardio: COMMON NORMALS: regular rate, regular rhythm and No murmurs present (Cardio) RATE: regular rate RHYTHM: regular rhythm GI: COMMON NORMALS: No hepatosplenomegaly present AUSCULTATION: Yes normoactive bowel sounds PALPATION: Yes Tenderness to palpation present (GI) (epigastric), No Guarding due to palpation present (GI) and Yes No hepatosplenom egaly present Extremity: COMMON NORMALS: normal to inspection, capillary refill normal, no clubbing, cyanosis or edema, no calf tenderness and no pedal edema Neuro: SENSORIUM/ORIENTATION: Yes oriented to person, Yes oriented to place and Yes oriented to time Skin: COMMON NORMALS: no rashes or lesions noted GENERAL SKIN EXAM: no rashes or lesions noted Course Vital Signs: Vital signs: Vital Signs Pulse Rate 78 10/15/22 08:51 Respiratory Rate 15 10/15/22 08:51 Blood Pressure 102/83 10/15/22 11:33 Pulse Oximetry 95 10/15/22 10:33 Oxygen Delivery Me thod Room Air 10/15/22 08:51 MDM - Abdominal Pain Medical Decision Making Labs reviewed with the patient no acute findings. She has chronic abdominal pain has been CT multiple times no acute pathology. by the time labs are c ompleted patient was feeling fine and requesting to go home. She has an upcoming gastric emptying study as an outpatient. Nonsurgical abdomen on exam labs unremarkable UA negative we will discharge patient home complete her outpatient work-up as previously scheduled Medical Records I reviewed the patient's medical records. Lab Data I reviewed the patient's lab results. 10/15/22 09:54 10/15/22 09:54 Labs/Radiology: Laboratory Results WBC 10.6 10^3/uL (4.0-10.0) H 10/15/22 09:54 RBC 4.87 10^6/uL (4.1-5.3) 10/15/22 09:54 Hgb 15.1 g/dL (11.5-15.3) 10/15/22 09:54 Hct 45.7 % (37.0-47.0) 10/15/22 09:54 MCV 93.8 fl (81-99) 10/15/22 09:54 MCH 31.0 pg (28.0-34.0) 10/15/22 09:54 MCHC 33.0 g/dL (30.0-36.0) 10/15/22 09:54 RDW 14.4 % (12.1-15.1) 10/15/22 09:54 Plt Count 228 10^3/cmm (130-400) 10/15/22 09:54 MPV 9.9 fL (7.4-10.4) 10/15/22 09:54 Neut % (Auto) 67.0 % 10/15/22 09:54 Lymph % (Auto) 18.6 % 10/15/22 09:54 [place] % (Auto) 11.9 % 10/15/22 09:54 Eos % (Auto) 1.2 % 10/15/22 09:54 Baso % (Auto) 0.7 % 10/15/22 09:54 Neut # (Auto) 7.08 10^3/uL (1.8-7.7) 10/15/22 09:54 Lymph # (Auto) 2.0 10^3/uL (0.8-4.8) 10/15/22 09:54 [place] # (Auto) 1.3 10^3/uL (0.2-0.9) H 10/15/22 09:54 Eos # (Auto) 0.1 10^3/uL (0.0-0.8) 10/15/22 09:54 Baso # (Auto) 0.1 10^3/uL (0.0-0.1) 10/15/22 09:54 Nucleated RBC % (auto) 0 % 10/15/22 09:54 Nucleated RBCs # 0.0 /100WBC 10/15/22 09:54 Sodium 137 mmol/L (136-145) 10/15/22 09:54 Potassium 4.2 mmol/L (3.5-5.1) 10/15/22 09:54 Chloride 101 mmol/L (98-107) 10/15/22 09:54 Carbon Dioxide 24 mmol/L (22-29) 10/15/22 09:54 Anion Gap 16.2 (5-19) 10/15/22 09:54 BUN 14 mg/dL (6-20) 10/15/22 09:54 Creatinine 1.0 mg/dL (0.5-0.9) H 10/15/22 09:54 GFR Calculation 57.8 mL/min (90-130) L 10/15/22 09:54 Glucose 85 mg/dL (65-115) 10/15/22 09:54 Calculated Osmolality 284 mOsm/kg (285-295) L 10/15/22 09:54 Calcium 9.2 mg/dL (8.5-10.5) 10/15/22 09:54 Total Bilirubin 0.7 mg/dL (0.15-1.2) 10/15/22 09:54 AST 10 U/L (0-32) 10/15/22 09:54 ALT 9 U/L (0-33) 10/15/22 09:54 Alkaline Phosphatase 118 U/L (35-105) H 10/15/22 09:54 Total Protein 7.2 g/dL (6.6-8.7) 10/15/22 09:54 Albumin 4.1 g/dL (3.5-5.2) 10/15/22 09:54 Globulin 3.1 g/dL (1.3-4.6) 10/15/22 09:54 Lipase 25 U/L (13-60) 10/15/22 09:54 Urine Color Yellow (Yellow) 10/15/22 09:18 Urine Appearance Hazy (CLEAR) A 10/15/22 09:18 Urine pH 5 (5-7) 10/15/22 09:18 Ur Specific [place] 1.020 (1.005-1.030) 10/15/22 09:18 Urine Protein Trace (Negative) 10/15/22 09:18 Urine Glucose (UA) Norm (Normal) 10/15/22 09:18 Urine Ketones Negative (Negative) 10/15/22 09:18 Urine Blood Neg (Negative) 10/15/22 09:18 Urine Nitrate Negative (Negative) 10/15/22 09:18 Urine Bilirubin Neg (Negative) 10/15/22 09:18 Urine Urobilinogen Norm mg/dL (Negative) 10/15/22 09:18 Ur Leukocyte Esterase 1+ (Negative) H 10/15/22 09:18 Urine RBC 0-4 /hpf (0-2) H 10/15/22 09:18 Urine WBC 25-40 /hpf (0-5) H 10/15/22 09:18 Ur Squamous Epith Cells 40-55 /hpf (0-5) H 10/15/22 09:18 Ur Transition Epith Cell 0-4 /hpf 10/15/22 09:18 Amorphous Sediment Not Reportable 10/15/22 09:18 Urine Bacteria 1+ /hpf (NONE) H 10/15/22 09:18 Discharge Plan Discharge Patient Disposition: Home Clinical Impression: Chronic abdominal pain Condition: Stable Prescriptions: No Action montelukast [Singulair] 10 mg tablet 10 mg PO DAILY 90 Days Qty: 90 0RF albuterol sulfate 90 mcg/actuation HFA aerosol inhaler 2 puff inhalation Q6H PRN (Reason: shortness of breath or wheezing) 30 Days Qty: 8.5 0RF unxgdpqvzqjy-Gb-ybff-minerals 18-0.4 mg tablet PO Ingrezza 80 mg capsule 80 mg PO .hs Qty: 30 1RF Rx Instructions: Take one capsule by mouth every morning citalopram 40 mg tablet 40 mg PO .q am Qty: 30 1RF Rx Instructions: Take one tablet by mouth every morning lamotrigine 200 mg tablet 200 mg PO DAILY@06 Qty: 30 1RF Rx Instructions: Take one tablet by mouth every morning mirtazapine [Remeron] 15 mg tablet 7.5 mg PO .qhs Qty: 15 1RF Rx Instructions: Take one-half tablet daily at bedtime nystatin 100,000 unit/gram powder 1 applic topical BID Qty: 30 0RF Rx Instructions: apply locally to B/L groin folds Afrin (oxymetazoline) 0.05 % mist 2 spray intranasal Q12H PRN (Reason: nasal congestion) 3 Days Qty: 15 0RF pantoprazole 40 mg tablet,delayed release (DR/EC) See Rx Instructions .ROUTE .COMPLEX Qty: 90 0RF Dose Instruction: TAKE 1 TABLET BY MOUTH DAILY AT 6 AM Rx Instructions: TAKE 1 TABLET BY MOUTH DAILY AT 6 AM acetaminophen 500 mg Tablet 1,000 mg PO Q6H PRN (Reason: Pain) Trelegy Ellipta 200-62.5-25 mcg blister with device 1 ea inhalation DAILY@06 Rx Instructions: STOP BREO AND IPRATROPIUM ondansetron 4 mg tablet,disintegrating 4 mg PO Q8H PRN (Reason: nausea and vomiting) Qty: 15 0RF Compazine 25 mg suppository 25 mg ND Q12H PRN (Reason: nausea and vomiting) Qty: 12 0RF Discharge Orders: Discharge ED (Routine); Ordered 10/15/22 Ordered By: Bryant Whitley Referrals: Dara Tavera, CONTINUOUS PILLOWCASE CUTTER [Primary Care Provider] - Discharge Diet: Usual diet Discharge Activity: Increase activity as tolerated Patient Instructions: Abdominal Pain (ED), Opioid Safety, Pain Management Activity Restrictions/Additional Instructions: You were seen today for abdominal pain this been a chronic recurrent issue for you. Evaluation in the emergency room was unremarkable would recommend you keep your scheduled outpatient testing upcoming this week continue your current medic ations return if you have further problems. Coding Level of Care Code ED Binder Folder Operator for Shellie Guallpa
[2022-10-15 09:20] VITALS: BP 118/78; O2SAT 95
[2022-10-15 09:33] LABS: Add Urine Microscopic? YES; Bilirubin Urine Neg (Negative); Blood Urine Neg (Negative); Glucose Urine UA Norm (Normal); Ketones Urine Negative (Negative); Leukocyte Esterase Urine 1+ (Negative); Nitrate Urine Negative (Negative); Protein Urine Trace (Negative); RBC Urine 0-4 /hpf (0-2); Urine Appearance Hazy (CLEAR); Urine Color Yellow (Yellow); Urobilinogen Urine Norm (Negative); pH Urine 5 (5-7)
[2022-10-15 09:34] LABS: Add Urine Culture? No; Bacteria Urine 1+ /hpf; Squamous Epithelial Cell Urine 40-55 /hpf (0-5); Transitional Epi Cells Urine 0-4 /hpf; WBC Urine 25-40 /hpf (0-5)
[2022-10-15 09:47] VITALS: BP 118/78; O2SAT 94
[2022-10-15] MEDS: ondansetron 2 mg/ML SDV 2 mL 4 MG IVP (09:58)
[2022-10-15] MEDS: sodium chloride 0.9% 1,000 ML 999 ML IV (09:58)
[2022-10-15 10:02] LABS: Basophils # 0.1 10^3/uL (0.0-0.1); Basophils % 0.7 %; Eosinophils # 0.1 10^3/uL (0.0-0.8); Eosinophils % 1.2 %; Hematocrit 45.7 % (37.0-47.0); Hemoglobin 15.1 g/dL (11.5-15.3); Lymphocytes % 18.6 %; Mean Corpuscular Volume 93.8 fl (81-99); Mean Platelet Volume 9.9 fL (7.4-10.4); Monocytes # 1.3 10^3/uL (0.2-0.9); Monocytes % 11.9 %; Neutrophils # 7.08 10^3/uL (1.8-7.7); Nucleated Red Blood Cells % 0 %; Platelet Count 228 10^3/cmm (130-400); Red Blood Count 4.87 10^6/uL (4.1-5.3); Red Cell Distribution Width 14.4 % (12.1-15.1); White Blood Count 10.6 10^3/uL (4.0-10.0)
[2022-10-15 10:33] VITALS: BP 109/61; O2SAT 95
[2022-10-15 10:48] LABS: Alanine Aminotransferase 9 U/L (0-33); Albumin Level 4.1 g/dL (3.5-5.2); Alkaline Phosphatase 118 U/L (35-105); Anion Gap 16.2 (5-19); Aspartate Amino Transferase 10 U/L (0-32); Blood Urea Nitrogen 14 mg/dL (6-20); Calcium 9.2 mg/dL (8.5-10.5); Carbon Dioxide 24 mmol/L (22-29); Chloride 101 mmol/L (98-107); Globulin 3.1 g/dL (1.3-4.6); Glomerular Filtration Rate 57.8 mL/min (90-130); Glucose 85 mg/dL (65-115); Lipase 25 U/L (13-60); Osmolality Calculated 284 mOsm/kg (285-295); Potassium 4.2 mmol/L (3.5-5.1); Sodium 137 mmol/L (136-145); Total Bilirubin 0.7 mg/dL (0.15-1.2); Total Protein 7.2 g/dL (6.6-8.7)
[2022-10-15 11:33] VITALS: BP 102/83
[2022-10-15 11:46] VITALS: BP 102/83; PULSE 73; O2SAT 94
== END 2022-10-15 11:47 | disposition home or self-care (01) ==
PROVIDERS: Emergency Provider Family Medicine; PCP Registered Nurse
DX: G89.29 Other chronic pain (principal); R10.9 Unspecified abdominal pain; F17.210 Nicotine dependence, cigarettes, uncomplicated; J44.9 Chronic obstructive pulmonary disease, unspecified
CPT/HCPCS: 80053; 81001; 83690; 85025; 96374; 99284; J2405; J7030

== ENCOUNTER → 2022-10-18 09:34 | Outpatient (BNVA) | payer MEDICARE, MEDICAID, SELFPAY | PROVIDERS: PCP Registered Nurse; Visit Provider Podiatrist Foot & Ankle Surgery | DX: L60.3 Nail dystrophy (principal) | CPT/HCPCS: 99203 ==

== ENCOUNTER 2022-10-26 21:24 | Emergency (ER) | payer MEDICARE, MEDICAID, SELFPAY ==
[2022-10-26 21:25] VITALS: BP 118/86; PULSE 78; RESP 16; TEMP 36.7; O2SAT 98; BMI 30.7
--- NOTE | 2022-10-26 21:33 | ED_ITS ---
HPI - Abdominal Pain General: Chief Complaint: Abdominal Pain Stated Complaint: ABD PAIN Time Seen by Provider: 10/26/22 21:26 Source: EMS Mode of arrival: EMS Limitations: no limitations History of Present Illness: 56-year-old female who is very well-known to ER she has a history of chronic abdominal pain states she been having some right upper quadrant and right lower quadrant pain over the last 2 days with nausea and vomiting she rates her pain a 5 out of 10 currently denies any fever denies any dysuria she also has some slight back pain she is resting comfortably currently. Associated Symptoms: Reports nausea and vomiting; Denies chills, diarrhea, dysuria and fever(s) Review of Systems Const: Denies: fever(s), chills, body aches or change in appetite ENMT: Denies: throat pain or dental pain Card: Denies: chest pain Resp: Denies: dyspnea GI: Reports: abdominal pain, nausea and vomiting; Denies: diarrhea : Denies: dysuria Musc: Denies: neck pain or back pain Skin/Breast: Denies: rash Neuro: Denies: headache(s) PFSH ED PFSH: Medical History Bladder stone Borderline personality disorder Cannabis dependence, uncomplicated Chronic anxiety Chronic back pain greater than 3 months duration Chronic gastritis without bleeding COPD (chronic obstructive pulmonary disease) Cystitis cystica Dysphagia Esophageal stricture Foreign body in bladder GERD without esophagitis Insomnia Neurogenic bladder Opioid dependence, uncomplicated Psychiatric care Restrictive lung disease Schizoaffective disorder, bipolar type Tardive dyskinesia Tobacco use disorder Urgency incontinence Surgical History H/O bladder repair surgery MESH REPAIR H/O colonoscopy with polypectomy H/O esophagogastroduodenoscopy (09/21/20) H/O: hysterectomy History of appendectomy History of breast biopsy History of foot surgery sx in 2009. Screws placed by Dr. Don. History of ureter stent Hx of cholecystectomy S/P bronchoscopy with biopsy Family History Mother No problems noted. Father No problems noted. Other Asthma Cancer Diabetes Heart disease Social History Smoking and tobacco status: current every day smoker cigarettes Packs smoked per day: 1 Years cigarettes smoked: 20 [ Other cigarette details: Hx of 1 PPD x 20 Years, started at age 27] Quit status (tobacco): considering quitting Second hand smoke exposure: Yes Smoking risk assessment/counseling performed?: No Alcohol intake: never Counseling given: No Substance/Drug Use: former Counseling given: No Lives independently: Yes Household members: spouse Marital status: Number of children: 3 Current occupational status: disabled Do you think of yourself as: Straight/Heterosexual Current gender identity: Female Physical Exam Const: COMMON NORMALS: no acute distress, patient oriented x3 and healthy appearing HENMT: COMMON NORMALS: normocephalic and atraumatic HEAD & SCALP: normocephalic and atraumatic Eye: COMMON NORMALS: conjunctivae normal CONJUNCTIVA: Yes conjunctivae normal Neck/C-Spine: COMMON NORMALS: full ROM and supple Chest: COMMONS NORMALS: normal inspection of the chest and normal palpation of entire chest wall Resp: COMMON NORMALS: normal respiratory effort, No retractions, No use of accessory muscles and clear to auscultation bilaterally AUSCULTATION: clear to auscultation bilaterally Cardio: COMMON NORMALS: regular rate, regular rhythm and No murmurs present (Cardio) RATE: regular rate RHYTHM: regular rhythm GI: COMMON NORMALS: Normal to inspection, nondistended, normoactive bowel sounds present, Soft to palpation, non-tender and no masses PALPATION: Yes Soft to palpation Extremity: COMMON NORMALS: normal to inspection and full ROM Neuro: COMMON NORMALS: patient oriented x3, moves all extremities and no focal motor deficits Psych: COMMON NORMALS: mental status grossly normal, Normal thought process present and cooperative THOUGHT PROCESS: Normal thought process present Skin: COMMON NORMALS: no rashes or lesions noted and no wounds GENERAL SKIN EXAM: no rashes or lesions noted Course Vital Signs: Vital signs: Vital Signs Temperature 98.1 F 10/26/22 21:25 Pulse Rate 82 10/26/22 22:16 Respiratory Rate 18 10/26/22 22:16 Blood Pressure 115/58 10/26/22 22:16 Pulse Oximetry 100 10/26/22 22:16 Oxygen Delivery Me thod Room Air 10/26/22 22:14 MDM - Abdominal Pain Medical Decision Making Patient presents here with abdominal pain she has chronic abdominal pain her exam here is benign no signs of acute surgical abdomen she is stable for discharge she is to follow-up with PCP and return if worsening. Medical Records I reviewed the patient's medical records. Lab Data I reviewed the patient's lab results. 10/26/22 21:35 10/26/22 21: Labs/Radiology: Laboratory Results WBC 17.1 10^3/uL (4.0-10.0) H 10/26/22 21: RBC 4.61 10^6/uL (4.1-5.3) 10/26/22 21: Hgb 14.5 g/dL (11.5-15.3) 10/26/22 21: Hct 44.3 % (37.0-47.0) 10/26/22: MCV 96.1 fl (81-99) 10/26/22 21: MCH 31.5 pg (28.0-34.0) 10/26/22 21: MCHC 32.7 g/dL (30.0-36.0) 10/26/22: RDW 14.6 % (12.1-15.1) 10/26/22 21: Plt Count 243 10^3/cmm (130-400) 10/26/22 21: MPV 10.1 fL (7.4-10.4) 10/26/22 21: Neut % (Auto) 79.2 % 10/26/22 21: Lymph % (Auto) 14.1 % 10/26/22 21: [place] % (Auto) 4.3 % 10/26/22 21: Eos % (Auto) 1.5 % 10/26/22 21: Baso % (Auto) 0.5 % 10/26/22 21: Neut # (Auto) 13.51 10^3/uL (1.8-7.7) H 10/26/22 21: Lymph # (Auto) 2.4 10^3/uL (0.8-4.8) 10/26/22 21:35 [place] # (Auto) 0.7 10^3/uL (0.2-0.9) 10/26/22 21:35 Eos # (Auto) 0.3 10^3/uL (0.0-0.8) 10/26/22 21:35 Baso # (Auto) 0.1 10^3/uL (0.0-0.1) 10/26/22 21:35 Nucleated RBC % (auto) 0 % 10/26/22 21:35 Nucleated RBCs # 0.0 /100WBC 10/26/22 21:35 Sodium 142 mmol/L (136-145) 10/26/22 21:35 Potassium 4.0 mmol/L (3.5-5.1) 10/26/22 21:35 Chloride 107 mmol/L (98-107) 10/26/22 21:35 Carbon Dioxide 24 mmol/L (22-29) 10/26/22 21:35 Anion Gap 15.0 (5-19) 10/26/22 21:35 BUN 15 mg/dL (6-20) 10/26/22 21:35 Creatinine 1.0 mg/dL (0.5-0.9) H 10/26/22 21:35 GFR Calculation 57.8 mL/min (90-130) L 10/26/22 21:35 Glucose 106 mg/dL (65-115) 10/26/22 21:35 Calculated Osmolality 295 mOsm/kg (285-295) 10/26/22 21:35 Calcium 8.9 mg/dL (8.5-10.5) 10/26/22 21:35 Total Bilirubin 0.2 mg/dL (0.15-1.2) 10/26/22 21:35 AST 15 U/L (0-32) 10/26/22 21:35 ALT 7 U/L (0-33) 10/26/22 21:35 Alkaline Phosphatase 136 U/L (35-105) H 10/26/22 21:35 Total Protein 6.4 g/dL (6.6-8.7) L 10/26/22 21:35 Albumin 4.0 g/dL (3.5-5.2) 10/26/22 21:35 Globulin 2.4 g/dL (1.3-4.6) 10/26/22 21:35 Lipase 31 U/L (13-60) 10/26/22 21:35 Urine Color Yellow (Yellow) 10/26/22 21:39 Urine Appearance Hazy (CLEAR) A 10/26/22 21:39 Urine pH 5 (5-7) 10/26/22 21:39 Ur Specific [place] 1.020 (1.005-1.030) 10/26/22 21:39 Urine Protein Neg (Negative) 10/26/22 21:39 Urine Glucose (UA) Norm (Normal) 10/26/22 21:39 Urine Ketones Negative (Negative) 10/26/22 21:39 Urine Blood Neg (Negative) 10/26/22 21:39 Urine Nitrate Negative (Negative) 10/26/22 21:39 Urine Bilirubin Neg (Negative) 10/26/22 21:39 Urine Urobilinogen Neg mg/dL (Negative) 10/26/22 21:39 Ur Leukocyte Esterase Negative (Negative) 10/26/22 21:39 Discharge Plan Discharge Patient Disposition: Home Clinical Impression: Abdominal pain Condition: Stable Prescriptions: No Action montelukast [Singulair] 10 mg tablet 10 mg PO DAILY 90 Days Qty: 90 0RF baognqwpzyif-Lm-wgue-minerals 18-0.4 mg tablet PO Ingrezza 80 mg capsule 80 mg PO .hs Qty: 30 1RF Rx Instructions: Take one capsule by mouth every morning citalopram 40 mg tablet 40 mg PO .q am Qty: 30 1RF Rx Instructions: Take one tablet by mouth every morning lamotrigine 200 mg tablet 200 mg PO DAILY@06 Qty: 30 1RF Rx Instructions: Take one tablet by mouth every morning mirtazapine [Remeron] 15 mg tablet 7.5 mg PO .qhs Qty: 15 1RF Rx Instructions: Take one-half tablet daily at bedtime nystatin 100,000 unit/gram powder 1 applic topical BID Qty: 30 0RF Rx Instructions: apply locally to B/L groin folds Afrin (oxymetazoline) 0.05 % mist 2 spray intranasal Q12H PRN (Reason: nasal congestion) 3 Days Qty: 15 0RF pantoprazole 40 mg tablet,delayed release (DR/EC) See Rx Instructions .ROUTE .COMPLEX Qty: 90 0RF Dose Instruction: TAKE 1 TABLET BY MOUTH DAILY AT 6 AM Rx Instructions: TAKE 1 TABLET BY MOUTH DAILY AT 6 AM albuterol sulfate 90 mcg/actuation HFA aerosol inhaler See Rx Instructions .ROUTE .COMPLEX Qty: 8.5 0RF Dose Instruction: INHALE 2 PUFFS BY MOUTH EVERY 6 HOURS NEEDED FOR SHORTNESS OF BREATH OR WHEEZING Rx Instructions: INHALE 2 PUFFS BY MOUTH EVERY 6 HOURS NEEDED FOR SHORTNESS OF BREATH OR WHEEZING acetaminophen 500 mg Tablet 1,000 mg PO Q6H PRN (Reason: Pain) Trelegy Ellipta 200-62.5-25 mcg blister with device 1 ea inhalation DAILY@06 Rx Instructions: STOP BREO AND IPRATROPIUM ondansetron 4 mg tablet,disintegrating 4 mg PO Q8H PRN (Reason: nausea and vomiting) Qty: 15 0RF Compazine 25 mg suppository 25 mg DC Q12H PRN (Reason: nausea and vomiting) Qty: 12 0RF Discharge Orders: Discharge ED (Routine); Ordered 10/26/22 Ordered By: Damien Urbina Referrals: Dara Tavera FNP [Primary Care Provider] - 1-3 days Discharge Diet: Advance as tolerated Discharge Activity: Resume usual activity Patient Instructions: Abdominal Pain (ED) Coding Level of Care Code ED Hydraulic Hammer Operator for Shellie Guallpa
[2022-10-26 21:40] VITALS: RESP 18
[2022-10-26] MEDS: morphine 4 mg/mL SDV 1 mL IVP (21:40)
[2022-10-26] MEDS: ondansetron 2 mg/ML SDV 2 mL 4 MG IVP (21:40)
[2022-10-26 21:49] LABS: Basophils # 0.1 10^3/uL (0.0-0.1); Basophils % 0.5 %; Eosinophils # 0.3 10^3/uL (0.0-0.8); Eosinophils % 1.5 %; Hematocrit 44.3 % (37.0-47.0); Hemoglobin 14.5 g/dL (11.5-15.3); Lymphocytes # 2.4 10^3/uL (0.8-4.8); Lymphocytes % 14.1 %; Mean Corpuscular HGB Conc 32.7 g/dL (30.0-36.0); Mean Corpuscular Hemoglobin 31.5 pg (28.0-34.0); Mean Corpuscular Volume 96.1 fl (81-99); Mean Platelet Volume 10.1 fL (7.4-10.4); Monocytes # 0.7 10^3/uL (0.2-0.9); Monocytes % 4.3 %; Neutrophils # 13.51 10^3/uL (1.8-7.7); Neutrophils % 79.2 %; Nucleated Red Blood Cells % 0 %; Platelet Count 243 10^3/cmm (130-400); Red Blood Count 4.61 10^6/uL (4.1-5.3); Red Cell Distribution Width 14.6 % (12.1-15.1); White Blood Count 17.1 10^3/uL (4.0-10.0)
[2022-10-26 21:53] LABS: Add Urine Microscopic? NO; Charge for UA Resulting for Rev
[2022-10-26 21:55] LABS: Urine Color Yellow (Yellow)
[2022-10-26 21:56] LABS: Bilirubin Urine Neg (Negative); Blood Urine Neg (Negative); Glucose Urine UA Norm (Normal); Ketones Urine Negative (Negative); Leukocyte Esterase Urine Negative (Negative); Nitrate Urine Negative (Negative); Protein Urine Neg (Negative); Urine Appearance Hazy (CLEAR); Urobilinogen Urine Neg (Negative); pH Urine 5 (5-7)
[2022-10-26 22:00] LABS: Alanine Aminotransferase 7 U/L (0-33); Alkaline Phosphatase 136 U/L (35-105); Aspartate Amino Transferase 15 U/L (0-32); Blood Urea Nitrogen 15 mg/dL (6-20); Calcium 8.9 mg/dL (8.5-10.5); Carbon Dioxide 24 mmol/L (22-29); Chloride 107 mmol/L (98-107); Globulin 2.4 g/dL (1.3-4.6); Glomerular Filtration Rate 57.8 mL/min (90-130); Glucose 106 mg/dL (65-115); Lipase 31 U/L (13-60); Osmolality Calculated 295 mOsm/kg (285-295); Sodium 142 mmol/L (136-145); Total Bilirubin 0.2 mg/dL (0.15-1.2); Total Protein 6.4 g/dL (6.6-8.7)
[2022-10-26 22:14] VITALS: BP 115/58; PULSE 82; RESP 18; O2SAT 100
[2022-10-26 22:16] VITALS: BP 115/58; PULSE 82; RESP 18; O2SAT 100
== END 2022-10-26 22:24 | disposition home or self-care (01) ==
PROVIDERS: Emergency Provider Emergency Medicine; PCP Registered Nurse
DX: R10.11 Right upper quadrant pain (principal); F17.210 Nicotine dependence, cigarettes, uncomplicated; J44.9 Chronic obstructive pulmonary disease, unspecified
CPT/HCPCS: 80053; 81003; 83690; 85025; 96374; 96375; 99284; J2270; J2405

== ENCOUNTER 2022-10-30 23:14 | Emergency (ER) | payer MEDICARE, MEDICAID, SELFPAY ==
[2022-10-30 23:25] VITALS: BP 112/71; PULSE 72; RESP 18; TEMP 36.6; O2SAT 97; BMI 30.7
[2022-10-30 23:27] VITALS: BP 112/71; PULSE 72; RESP 18; O2SAT 96
[2022-10-30 23:29] LABS: Basophils # 0.1 10^3/uL (0.0-0.1); Basophils % 0.8 %; Eosinophils # 0.2 10^3/uL (0.0-0.8); Eosinophils % 2.1 %; Hematocrit 45.6 % (37.0-47.0); Hemoglobin 14.6 g/dL (11.5-15.3); Lymphocytes # 2.8 10^3/uL (0.8-4.8); Mean Corpuscular Hemoglobin 30.7 pg (28.0-34.0); Mean Corpuscular Volume 95.8 fl (81-99); Mean Platelet Volume 9.7 fL (7.4-10.4); Monocytes # 0.5 10^3/uL (0.2-0.9); Monocytes % 5.2 %; Neutrophils # 6.42 10^3/uL (1.8-7.7); Neutrophils % 63.4 %; Nucleated Red Blood Cells % 0 %; Platelet Count 263 10^3/cmm (130-400); Red Blood Count 4.76 10^6/uL (4.1-5.3); Red Cell Distribution Width 14.7 % (12.1-15.1); White Blood Count 10.1 10^3/uL (4.0-10.0)
[2022-10-30 23:35] VITALS: RESP 18; O2SAT 98
[2022-10-30] MEDS: sodium chloride 0.9% 1,000 ML 999 ML IV (23:35)
[2022-10-30] MEDS: ondansetron 2 mg/ML SDV 2 mL 4 MG IVP (23:35)
[2022-10-30] MEDS: morphine 4 mg/mL SDV 1 mL IVP ×2 (23:35→23:56)
[2022-10-30 23:56] VITALS: RESP 16; O2SAT 97
[2022-10-30 23:57] LABS: Add Urine Microscopic? YES; Bilirubin Urine Neg (Negative); Blood Urine 2+ (Negative); Glucose Urine UA Norm (Normal); Ketones Urine Negative (Negative); Leukocyte Esterase Urine Trace (Negative); Nitrate Urine Negative (Negative); Protein Urine Neg (Negative); Urine Appearance Clear (CLEAR); Urine Color Yellow (Yellow); Urobilinogen Urine Norm (Negative); pH Urine 5 (5-7)
[2022-10-30 23:58] LABS: Alanine Aminotransferase 8 U/L (0-33); Alkaline Phosphatase 130 U/L (35-105); Anion Gap 15.9 (5-19); Aspartate Amino Transferase 11 U/L (0-32); Blood Urea Nitrogen 14 mg/dL (6-20); Calcium 8.7 mg/dL (8.5-10.5); Carbon Dioxide 23 mmol/L (22-29); Chloride 107 mmol/L (98-107); Globulin 2.5 g/dL (1.3-4.6); Glomerular Filtration Rate 65.2 mL/min (90-130); Glucose 84 mg/dL (65-115); Lipase 31 U/L (13-60); Osmolality Calculated 294 mOsm/kg (285-295); Potassium 3.9 mmol/L (3.5-5.1); Sodium 142 mmol/L (136-145); Total Bilirubin 0.2 mg/dL (0.15-1.2); Total Protein 6.5 g/dL (6.6-8.7)
[2022-10-31 00:01] LABS: RBC Urine 0-4 /hpf (0-2)
[2022-10-31 00:02] LABS: Bacteria Urine 1+ /hpf
--- NOTE | 2022-10-31 00:22 | ECG_ITS ---
[facility] Test Date: 2022-10-31 Pat Name: Latesha Wilhelm Department: Room: Gender: Female Human Resources Officer: : 1965 Requested By: Chivo Reynaga Order Number: [id number] Alice MD: Kenan Sidhu M.D. Measurements Intervals [place] Rate: 67 P: 58 MS: 146 QRS: 66 QRSD: 96 T: 59 QT: 422 QTc: 446 Interpretive Statements SINUS RHYTHM Compared to ECG 09/12/2022 05:07:29 No significant changes Electronically Signed On 11-01-2022 0:07:52 CDT by Kenan Sidhu M.D. [id number]
[2022-10-31 00:23] VITALS: RESP 18
[2022-10-31] MEDS: lidocaine 2% viscous 15 ML, aluminum-mag hydrox-simethicon 30 ML, sucralfate oral liq 1 GM PO (00:23)
[2022-10-31] MEDS: morphine 4 mg/mL SDV 1 mL IVP (00:23)
[2022-10-31 00:26] LABS: C Reactive Protein 20.2 mg/L (0.0-4.9)
[2022-10-31 00:29] VITALS: BP 119/84; PULSE 84; RESP 18; O2SAT 96
--- NOTE | 2022-10-31 00:46 | W.ED.ABDPA2 ---
HPI - Abdominal Pain General: Chief Complaint: Abdominal Pain Stated Complaint: abd/back pain/n/v Time Seen by Provider: 10/30/22 23:17 Source: patient History of Present Illness: 56-year-old female well-known to the ER service. She comes in by ambulance for an exacerbation of her chronic abdominal pain for which she has been seen multiple times. She notes this pain is a bit different and that it is moved over to the right side of her back. She denies dysuria. She denies hematuria. No diarrhea. Last bowel movement was normal and was this morning. She has vomited a couple of times today she says. MD elicited complaint: abdominal pain Pertinent past history: constipation and other Onset (ago): hour(s) Pain Consistency: constant Location: Epigastric and R flank Associated Symptoms: Reports nausea and vomiting; Denies chills, diarrhea, dyspepsia, fever(s), hematochezia and hematemesis Review of Systems Const: Denies: fever(s) or chills Eyes: Denies: change in vision ENMT: Denies: throat pain Card: Reports: chest pain Resp: Denies: dyspnea, productive cough or non-productive cough GI: Reports: nausea and vomiting; Denies: hematemesis, diarrhea or hematochezia [facility] ED PFSH: Medical History Bladder stone Borderline personality disorder Cannabis dependence, uncomplicated Chronic anxiety Chronic back pain greater than 3 months duration Chronic gastritis without bleeding COPD (chronic obstructive pulmonary disease) Cystitis cystica Dysphagia Esophageal stricture Foreign body in bladder GERD without esophagitis Insomnia Neurogenic bladder Opioid dependence, uncomplicated Psychiatric care Restrictive lung disease Schizoaffective disorder, bipolar type Tardive dyskinesia Tobacco use disorder Urgency incontinence Surgical History H/O bladder repair surgery MESH REPAIR H/O colonoscopy with polypectomy H/O esophagogastroduodenoscopy (09/21/20) H/O: hysterectomy History of appendectomy History of breast biopsy History of foot surgery sx in 2009. Screws placed by Dr. Don. History of ureter stent Hx of cholecystectomy S/P bronchoscopy with biopsy Family History Mother No problems noted. Father No problems noted. Other Asthma Cancer Diabetes Heart disease Social History Smoking and tobacco status: current every day smoker cigarettes Packs smoked per day: 1 Years cigarettes smoked: 20 [ Other cigarette details: Hx of 1 PPD x 20 Years, started at age 27] Quit status (tobacco): considering quitting Second hand smoke exposure: Yes Smoking risk assessment/counseling performed?: No Alcohol intake: never Counseling given: No Substance/Drug Use: former Counseling given: No Lives independently: Yes Household members: spouse Marital status: Number of children: 3 Current occupational status: disabled Do you think of yourself as: Straight/Heterosexual Current gender identity: Female Physical Exam Const: COMMON NORMALS: no acute distress GENERAL APPEARANCE: cooperative; not ill appearing and not frail appearing HENMT: COMMON NORMALS: normocephalic, atraumatic and Normal external nose present HEAD & SCALP: normocephalic and atraumatic FACE & SINUS: normal facial exam and face symmetric NOSE: Normal external nose present Eye: COMMON NORMALS: Equal, round and reactive pupils present and EOMs intact bilaterally PUPIL: Yes Equal, round and reactive pupils present Neck/C-Spine: GENERAL: Yes trachea midline Chest: CHEST: Yes Symmetrical chest wall rise Resp: COMMON NORMALS: normal respiratory effort, No retractions, No use of accessory muscles and clear to auscultation bilaterally AUSCULTATION: clear to auscultation bilaterally Cardio: COMMON NORMALS: regular rate and regular rhythm RATE: regular rate RHYTHM: regular rhythm GI: COMMON NORMALS: Normal to inspection, nondistended, normoactive bowel sounds present PALPATION: Yes Tenderness to palpation present (GI) (diffuse) Extremity: COMMON NORMALS: no pedal edema Neuro: [place] COMA SCALE: document GCS findings [place] coma scale eye opening: Spontaneous [place] coma scale verbal response: Orientated [place] coma scale motor response: Obey commands [place] coma scale total score: 15 SENSORY EXAM: Yes extremities (intact) Psych: COMMON NORMALS: speech normal SPEECH: Yes normal speech Skin: COMMON NORMALS: no rashes or lesions noted GENERAL SKIN EXAM: no rashes or lesions noted Course Vital Signs: Vital signs: Vital Signs Temperature 97.8 F 10/30/22 23:25 Pulse Rate 84 10/31/22 00:29 Respiratory Rate 18 10/31/22 00:29 Blood Pressure 119/84 10/31/22 00:29 Pulse Oximetry 96 10/31/22 00:29 Oxygen Delivery Me thod Room Air 10/31/22 00:29 MDM - Abdominal Pain Medical Decision Making A bit of time to revisit she began to complain of chest pain. EKG was performed, and shows a normal sinus rhythm with normal axis and intervals. QRS duration is 96 ms. Rate is 65. There are no acute ST changes. Hemoglobin is 14.6. White blood cell count is 10. The rest of her laboratory is normal. Urinalysis mildly contaminated, but does not reveal significant urinary tract infection. She does have an elevation in her CRP of 20. Lab Data 10/30/22 23:20 10/30/22 23:20 Labs/Radiology: Laboratory Results WBC 10.1 10^3/uL (4.0-10.0) H 10/30/22 23:20 RBC 4.76 10^6/uL (4.1-5.3) 10/30/22 23:20 Hgb 14.6 g/dL (11.5-15.3) 10/30/22 23:20 Hct 45.6 % (37.0-47.0) 10/30/22 23:20 MCV 95.8 fl (81-99) 10/30/22 23:20 MCH 30.7 pg (28.0-34.0) 10/30/22 23:20 MCHC 32.0 g/dL (30.0-36.0) 10/30/22 23:20 RDW 14.7 % (12.1-15.1) 10/30/22 23:20 Plt Count 263 10^3/cmm (130-400) 10/30/22 23:20 MPV 9.7 fL (7.4-10.4) 10/30/22 23:20 Neut % (Auto) 63.4 % 10/30/22 23:20 Lymph % (Auto) 28.0 % 10/30/22 23:20 [place] % (Auto) 5.2 % 10/30/22 23:20 Eos % (Auto) 2.1 % 10/30/22 23:20 Baso % (Auto) 0.8 % 10/30/22 23:20 Neut # (Auto) 6.42 10^3/uL (1.8-7.7) 10/30/22 23:20 Lymph # (Auto) 2.8 10^3/uL (0.8-4.8) 10/30/22 23:20 [place] # (Auto) 0.5 10^3/uL (0.2-0.9) 10/30/22 23:20 Eos # (Auto) 0.2 10^3/uL (0.0-0.8) 10/30/22 23:20 Baso # (Auto) 0.1 10^3/uL (0.0-0.1) 10/30/22 23:20 Nucleated RBC % (auto) 0 % 10/30/22 23:20 Nucleated RBCs # 0.0 /100WBC 10/30/22 23:20 Sodium 142 mmol/L (136-145) 10/30/22 23:20 Potassium 3.9 mmol/L (3.5-5.1) 10/30/22 23:20 Chloride 107 mmol/L (98-107) 10/30/22 23:20 Carbon Dioxide 23 mmol/L (22-29) 10/30/22 23:20 Anion Gap 15.9 (5-19) 10/30/22 23:20 BUN 14 mg/dL (6-20) 10/30/22 23:20 Creatinine 0.9 mg/dL (0.5-0.9) 10/30/22 23:20 GFR Calculation 65.2 mL/min (90-130) L 10/30/22 23:20 Glucose 84 mg/dL (65-115) 10/30/22 23:20 Calculated Osmolality 294 mOsm/kg (285-295) 10/30/22 23:20 Calcium 8.7 mg/dL (8.5-10.5) 10/30/22 23:20 Total Bilirubin 0.2 mg/dL (0.15-1.2) 10/30/22 23:20 AST 11 U/L (0-32) 10/30/22 23:20 ALT 8 U/L (0-33) 10/30/22 23:20 Alkaline Phosphatase 130 U/L (35-105) H 10/30/22 23:20 C-Reactive Protein 20.2 mg/L (0.0-4.9) H 10/30/22 23:20 Total Protein 6.5 g/dL (6.6-8.7) L 10/30/22 23:20 Albumin 4.0 g/dL (3.5-5.2) 10/30/22 23:20 Globulin 2.5 g/dL (1.3-4.6) 10/30/22 23:20 Lipase 31 U/L (13-60) 10/30/22 23:20 Urine Color Yellow (Yellow) 10/30/22 23:47 Urine Appearance Clear (CLEAR) 10/30/22 23:47 Urine pH 5 (5-7) 10/30/22 23:47 Ur Specific [place] 1.020 (1.005-1.030) 10/30/22 23:47 Urine Protein Neg (Negative) 10/30/22 23:47 Urine Glucose (UA) Norm (Normal) 10/30/22 23:47 Urine Ketones Negative (Negative) 10/30/22 23:47 Urine Blood 2+ (Negative) H 10/30/22 23:47 Urine Nitrate Negative (Negative) 10/30/22 23:47 Urine Bilirubin Neg (Negative) 10/30/22 23:47 Urine Urobilinogen Norm mg/dL (Negative) 10/30/22 23:47 Ur Leukocyte Esterase Trace (Negative) H 10/30/22 23:47 Urine RBC 0-4 /hpf (0-2) H 10/30/22 23:47 Urine WBC 10-15 /hpf (0-5) H 10/30/22 23:47 Ur Squamous Epith Cells 10-15 /hpf (0-5) H 10/30/22 23:47 Amorphous Sediment Not Reportable 10/30/22 23:47 Urine Bacteria 1+ /hpf (NONE) H 10/30/22 23:47 Discharge Plan Discharge Patient Disposition: Home Clinical Impression: Abdominal pain Condition: Stable Prescriptions: Continued ondansetron 4 mg tablet,disintegrating 4 mg PO Q8H PRN (Reason: nausea and vomiting) Qty: 25 0RF No Action montelukast [Singulair] 10 mg tablet 10 mg PO DAILY 90 Days Qty: 90 0RF pfgywbkahytz-Iv-nvct-minerals 18-0.4 mg tablet PO Ingrezza 80 mg capsule 80 mg PO .hs Qty: 30 1RF Rx Instructions: Take one capsule by mouth every morning citalopram 40 mg tablet 40 mg PO .q am Qty: 30 1RF Rx Instructions: Take one tablet by mouth every morning lamotrigine 200 mg tablet 200 mg PO DAILY@06 Qty: 30 1RF Rx Instructions: Take one tablet by mouth every morning mirtazapine [Remeron] 15 mg tablet 7.5 mg PO .qhs Qty: 15 1RF Rx Instructions: Take one-half tablet daily at bedtime nystatin 100,000 unit/gram powder 1 applic topical BID Qty: 30 0RF Rx Instructions: apply locally to B/L groin folds Afrin (oxymetazoline) 0.05 % mist 2 spray intranasal Q12H PRN (Reason: nasal congestion) 3 Days Qty: 15 0RF pantoprazole 40 mg tablet,delayed release (DR/EC) See Rx Instructions .ROUTE .COMPLEX Qty: 90 0RF Dose Instruction: TAKE 1 TABLET BY MOUTH DAILY AT 6 AM Rx Instructions: TAKE 1 TABLET BY MOUTH DAILY AT 6 AM albuterol sulfate 90 mcg/actuation HFA aerosol inhaler See Rx Instructions .ROUTE .COMPLEX Qty: 8.5 0RF Dose Instruction: INHALE 2 PUFFS BY MOUTH EVERY 6 HOURS NEEDED FOR SHORTNESS OF BREATH OR WHEEZING Rx Instructions: INHALE 2 PUFFS BY MOUTH EVERY 6 HOURS NEEDED FOR SHORTNESS OF BREATH OR WHEEZING acetaminophen 500 mg Tablet 1,000 mg PO Q6H PRN (Reason: Pain) Trelegy Ellipta 200-62.5-25 mcg blister with device 1 ea inhalation DAILY@06 Rx Instructions: STOP BREO AND IPRATROPIUM Compazine 25 mg suppository 25 mg [place] Q12H PRN (Reason: nausea and vomiting) Qty: 12 0RF Discharge Orders: Discharge ED (Routine); Ordered 10/31/22 Ordered By: Chivo Deleon Referrals: Dara Tavera, SECURITY SOFTWARE ENGINEER [Primary Care Provider] - Patient Instructions: Abdominal Pain (ED), Opioid Safety, Pain Management Activity Restrictions/Additional Instructions: Follow-up with your GI specialist tomorrow as scheduled. Return for vomiting liquids despite treatment, fever greater than 100, blood in the stool, other concerning symptoms. Coding Level of Care Code ED Philosophy Lecturer for Shellie Guallpa
[2022-10-31 01:03] VITALS: BP 107/74; RESP 18
== END 2022-10-31 01:10 | disposition home or self-care (01) ==
PROVIDERS: Emergency Provider Emergency Medicine; PCP Registered Nurse
DX: R10.13 Epigastric pain (principal); J44.9 Chronic obstructive pulmonary disease, unspecified; F17.210 Nicotine dependence, cigarettes, uncomplicated
CPT/HCPCS: 71045; 80053; 81001; 81003; 83690; 84484; 85025; 86140; 93005; 94640; 96374; 96375; 96376; 99284; J1100; J1170; J2270; J2405; J7030

== ENCOUNTER 2022-10-31 04:11 | Emergency (ER) | payer MEDICARE, MEDICAID, SELFPAY ==
[2022-10-31] VITALS (8 sets, daily range): BP systolic 110–128; BP diastolic 77–87; PULSE 71–89; RESP 16–20; TEMP 36.9; O2SAT 92–96; BMI 30.7
--- NOTE | 2022-10-31 04:36 | XRR_ITS ---
PROCEDURE INFORMATION: Exam: XR Chest Exam date and time: 10/31/2022 4:59 AM Age: 56 years old Clinical indication: Shortness of breath; Chest pressure; Prior surgery; Surgery date: 6+ months; Surgery type: Gb; Patient HX: C/O chest pain with SOB. History of copd. ; Additional info: Cp TECHNIQUE: Imaging protocol: Radiologic exam of the chest. Views: 1 view. COMPARISON: CR (CHEST, ) 09/11/2022 9:51 PM FINDINGS: Lungs: No focal airspace disease. Pleural spaces: Unremarkable. No pleural effusion. No pneumothorax. Heart/Mediastinum: Cardiomediastinal silhouette is within normal limits. Bones/joints: Unremarkable. XR/XR chest 1V portable [id number] IMPRESSION: No acute cardiopulmonary abnormality.
--- NOTE | 2022-10-31 04:38 | W.ED.CHESTPA ---
HPI - Chest Pain General: Chief Complaint: Chest Pain Stated Complaint: Chest Pain Time Seen by Provider: 10/31/22 04:36 History of Present Illness: 56-year-old female who was seen last night for abdominal pain, epigastric. This is a chronic problem for her. Pain was relieved after medication and negative work-up, and the patient was discharged. She said for 4 hours or so in the waiting room without a ride, and decided that she needed to be seen again, because her chest started hurting. She is nauseated. She has not thrown up again. No fever. She has a history of COPD. She does not have a history of coronary disease. She is well-known to the ER service. MD complaint: chest pain Pertinent past history: other Onset (ago): hour(s) Timing of current episode: episodic Prior episodes: Yes Onset: during rest Pain location: substernal and epigastric Pain radiation: back Associated symptoms: Reports abdominal pain and nausea; Deny dyspnea, fever(s), palpitations, syncope or vomiting Review of Systems Const: Denies: fever(s) ENMT: Denies: throat pain Card: Denies: palpitations or syncope Resp: Denies: dyspnea GI: Reports: abdominal pain and nausea; Denies: vomiting Musc: Reports: back pain [facility] ED PFSH: Medical History Bladder stone Borderline personality disorder Cannabis dependence, uncomplicated Chronic anxiety Chronic back pain greater than 3 months duration Chronic gastritis without bleeding COPD (chronic obstructive pulmonary disease) Cystitis cystica Dysphagia Esophageal stricture Foreign body in bladder GERD without esophagitis Insomnia Neurogenic bladder Opioid dependence, uncomplicated Psychiatric care Restrictive lung disease Schizoaffective disorder, bipolar type Tardive dyskinesia Tobacco use disorder Urgency incontinence Surgical History H/O bladder repair surgery MESH REPAIR H/O colonoscopy with polypectomy H/O esophagogastroduodenoscopy (09/21/20) H/O: hysterectomy History of appendectomy History of breast biopsy History of foot surgery sx in 2009. Screws placed by Dr. Don. History of ureter stent Hx of cholecystectomy S/P bronchoscopy with biopsy Family History Mother No problems noted. Father No problems noted. Other Asthma Cancer Diabetes Heart disease Social History Smoking and tobacco status: current every day smoker cigarettes Packs smoked per day: 1 Years cigarettes smoked: 20 [ Other cigarette details: Hx of 1 PPD x 20 Years, started at age 27] Quit status (tobacco): considering quitting Second hand smoke exposure: Yes Smoking risk assessment/counseling performed?: No Alcohol intake: never Counseling given: No Substance/Drug Use: former Counseling given: No Lives independently: Yes Household members: spouse Marital status: Number of children: 3 Current occupational status: disabled Do you think of yourself as: Straight/Heterosexual Current gender identity: Female Physical Exam Const: COMMON NORMALS: no acute distress GENERAL APPEARANCE: cooperative; not ill appearing and not frail appearing HENMT: COMMON NORMALS: normocephalic, atraumatic and Normal external nose present HEAD & SCALP: normocephalic and atraumatic FACE & SINUS: normal facial exam and face symmetric NOSE: Normal external nose present Eye: COMMON NORMALS: Equal, round and reactive pupils present and EOMs intact bilaterally PUPIL: Yes Equal, round and reactive pupils present Neck/C-Spine: GENERAL: Yes trachea midline Chest: CHEST: Yes Symmetrical chest wall rise Resp: EFFORT & INSPECTION: Yes tachypneic, No retractions and Yes uses accessory muscles AUSCULTATION: wheezes Cardio: COMMON NORMALS: regular rate and regular rhythm RATE: regular rate RHYTHM: regular rhythm GI: COMMON NORMALS: Normal to inspection, nondistended, normoactive bowel sounds present Extremity: COMMON NORMALS: no pedal edema Neuro: [place] COMA SCALE: document GCS findings [place] coma scale eye opening: Spontaneous [place] coma scale verbal response: Orientated [place] coma scale motor response: Obey commands [place] coma scale total score: 15 SENSORY EXAM: Yes extremities (intact) Psych: COMMON NORMALS: speech normal SPEECH: Yes normal speech Skin: COMMON NORMALS: no rashes or lesions noted GENERAL SKIN EXAM: no rashes or lesions noted Course Vital Signs: Vital signs: Vital Signs Temperature 98.5 F 10/31/22 04:34 Pulse Rate 71 10/31/22 05:07 Respiratory Rate 18 10/31/22 05:41 Blood Pressure 110/87 10/31/22 04:34 Pulse Oximetry 96 10/31/22 05:07 Oxygen Delivery Me thod Room Air 10/31/22 05:07 MDM - Chest Pain Medical Decision Making Vital signs are as follows saturations 95% on room air, heart rate 80, blood pressure 110/81. She is in no distress on examination. EKG shows a sinus rhythm with a rate of 80 normal axis normal intervals, QRS duration is [address] changes. We will draw a single troponin, shoot chest x-ray, and treat discomfort. The rest of her laboratory from a couple of hours ago is essentially unremarkable. Troponin is normal. EKG as above. Chest x-ray is negative for infiltrate. Wheezing is improved following breathing treatment. Patient has for me to come to bedside. She is still having some chest discomfort. She refused nitroglycerin earlier, as she claims it decreases her blood pressure significantly. She states the morphine and GI cocktail did not seem to help. She asks for observation status for her chest pain. This is declined. She will be allowed discharge home. Lab Data Radiology Impressions Chest X-Ray 10/31/22 04:36 IMPRESSION: No acute cardiopulmonary abnormality. Laboratory Results Troponin T Gen 5 ng/L 6 ng/L (0-10) 10/31/22 04:45 Discharge Plan Discharge Patient Disposition: Home Clinical Impression: Chest pain Condition: Stable Prescriptions: No Action montelukast [Singulair] 10 mg tablet 10 mg PO DAILY 90 Days Qty: 90 0RF bockfwipvlpb-Zk-smir-minerals 18-0.4 mg tablet PO Ingrezza 80 mg capsule 80 mg PO .hs Qty: 30 1RF Rx Instructions: Take one capsule by mouth every morning citalopram 40 mg tablet 40 mg PO .q am Qty: 30 1RF Rx Instructions: Take one tablet by mouth every morning lamotrigine 200 mg tablet 200 mg PO DAILY@06 Qty: 30 1RF Rx Instructions: Take one tablet by mouth every morning mirtazapine [Remeron] 15 mg tablet 7.5 mg PO .qhs Qty: 15 1RF Rx Instructions: Take one-half tablet daily at bedtime nystatin 100,000 unit/gram powder 1 applic topical BID Qty: 30 0RF Rx Instructions: apply locally to B/L groin folds Afrin (oxymetazoline) 0.05 % mist 2 spray intranasal Q12H PRN (Reason: nasal congestion) 3 Days Qty: 15 0RF pantoprazole 40 mg tablet,delayed release (DR/EC) See Rx Instructions .ROUTE .COMPLEX Qty: 90 0RF Dose Instruction: TAKE 1 TABLET BY MOUTH DAILY AT 6 AM Rx Instructions: TAKE 1 TABLET BY MOUTH DAILY AT 6 AM albuterol sulfate 90 mcg/actuation HFA aerosol inhaler See Rx Instructions .ROUTE .COMPLEX Qty: 8.5 0RF Dose Instruction: INHALE 2 PUFFS BY MOUTH EVERY 6 HOURS NEEDED FOR SHORTNESS OF BREATH OR WHEEZING Rx Instructions: INHALE 2 PUFFS BY MOUTH EVERY 6 HOURS NEEDED FOR SHORTNESS OF BREATH OR WHEEZING acetaminophen 500 mg Tablet 1,000 mg PO Q6H PRN (Reason: Pain) Trelegy Ellipta 200-62.5-25 mcg blister with device 1 ea inhalation DAILY@06 Rx Instructions: STOP BREO AND IPRATROPIUM Compazine 25 mg suppository 25 mg [place] Q12H PRN (Reason: nausea and vomiting) Qty: 12 0RF ondansetron 4 mg tablet,disintegrating 4 mg PO Q8H PRN (Reason: nausea and vomiting) Qty: 25 0RF Discharge Orders: Discharge ED (Routine); Ordered 10/31/22 Ordered By: Chivo Deleon Referrals: Dara Tavera FNP [Primary Care Provider] - Patient Instructions: Chest Pain (ED), Opioid Safety, Pain Management Coding Level of Care Code ED Nursing Services Manager for Shellie Guallpa
[2022-10-31] MEDS: lidocaine 2% viscous 15 ML, aluminum-mag hydrox-simethicon 30 ML, sucralfate oral liq 1 GM PO (04:47)
[2022-10-31] MEDS: ondansetron 2 mg/ML SDV 2 mL 4 MG IVP (04:47)
[2022-10-31] MEDS: morphine 4 mg/mL SDV 1 mL IVP ×2 (04:47→05:41)
[2022-10-31] MEDS: dexamethasone 10 mg/mL INJ IVP (04:59)
[2022-10-31] MEDS: ipratropium-albuterol 3 mL Neb INHALATION (05:05)
[2022-10-31 05:16] LABS: Troponin T (5th) Once 6 ng/L (0-10)
[2022-10-31] MEDS: HYDROmorphone 1 mg/mL INJ 1 mL IVP (06:26)
== END 2022-10-31 06:43 | disposition home or self-care (01) ==
PROVIDERS: Emergency Provider Emergency Medicine; PCP Registered Nurse
DX: R07.9 Chest pain, unspecified (principal); F17.210 Nicotine dependence, cigarettes, uncomplicated; J44.9 Chronic obstructive pulmonary disease, unspecified
CPT/HCPCS: 71045; 84484; 94640; 96374; 96375; 96376; 99284; J1100; J1170; J2270; J2405

== ENCOUNTER 2022-11-10 18:50 | Emergency (ER) | payer MEDICARE, MEDICAID, SELFPAY ==
[2022-11-10] VITALS (25 sets, daily range): BP systolic 87–114; BP diastolic 39–72; PULSE 86–95; RESP 16–18; TEMP 37.6; O2SAT 95–98
--- NOTE | 2022-11-10 19:17 | ECG_ITS ---
[facility] Test Date: 2022-11-10 Pat Name: Latesha Wilhelm Department: Room: Gender: Female Electrical Project Engineer: : 1965 Requested By: Hood Angel Order Number: [id number] Alice MD: Freida Sampson M.D. Measurements Intervals [place] Rate: 90 P: 53 MA: 147 QRS: 45 QRSD: 99 T: 53 QT: 380 QTc: 466 Interpretive Statements SINUS RHYTHM Compared to ECG 10/31/2022 00:22:25 No significant changes Electronically Signed On 11-10-2022 20:45:24 CDT by Freida Sampson M.D. [id number]
--- NOTE | 2022-11-10 19:34 | W.ED.SYNCOPE ---
HPI - Syncope General: Chief Complaint: Syncope Stated Complaint: ABD PAIN Time Seen by Provider: 11/10/22 19:11 Source: patient Mode of arrival: EMS Limitations: no limitations History of Present Illness: 57-year-old female is very well-known to the ER states she has been having abdominal pain today and also had a syncopal event. States her pain is diffuse rates it a 5 out of 10 she had no vomiting denies any diarrhea denies any chest pain she denies any fevers does have a low-grade fever here 99.6. Denies any dysuria. Associated symptoms: Reports abdominal pain; Deny chest pain, fever(s), headache(s) or nausea Review of Systems Const: Denies: fever(s), chills, body aches or change in appetite Eyes: Denies: blurry vision or eye discomfort ENMT: Denies: throat pain or dental pain Card: Reports: syncope; Denies: chest pain Resp: Denies: dyspnea GI: Reports: abdominal pain; Denies: nausea or vomiting : Denies: dysuria Musc: Denies: neck pain or back pain Skin/Breast: Denies: rash Neuro: Denies: headache(s) Psych: Denies: depression Wilbur/Lymph: Denies: easy bruising All/Imm: Denies: urticaria PFSH ED PFSH: Medical History Bladder stone Borderline personality disorder Cannabis dependence, uncomplicated Chronic anxiety Chronic back pain greater than 3 months duration Chronic gastritis without bleeding COPD (chronic obstructive pulmonary disease) Cystitis cystica Dysphagia Esophageal stricture Foreign body in bladder GERD without esophagitis Insomnia Neurogenic bladder Opioid dependence, uncomplicated Psychiatric care Restrictive lung disease Schizoaffective disorder, bipolar type Tardive dyskinesia Tobacco use disorder Urgency incontinence Surgical History H/O bladder repair surgery MESH REPAIR H/O colonoscopy with polypectomy H/O esophagogastroduodenoscopy (09/21/20) H/O: hysterectomy History of appendectomy History of breast biopsy History of foot surgery sx in 2009. Screws placed by Dr. Don. History of ureter stent Hx of cholecystectomy S/P bronchoscopy with biopsy Family History Mother No problems noted. Father No problems noted. Other Asthma Cancer Diabetes Heart disease Social History Smoking and tobacco status: current every day smoker cigarettes Packs smoked per day: 1 Years cigarettes smoked: 20 [ Other cigarette details: Hx of 1 PPD x 20 Years, started at age 27] Quit status (tobacco): considering quitting Second hand smoke exposure: Yes Smoking risk assessment/counseling performed?: No Alcohol intake: never Counseling given: No Substance/Drug Use: former Counseling given: No Lives independently: Yes Household members: spouse Marital status: Number of children: 3 Current occupational status: disabled Do you think of yourself as: Straight/Heterosexual Current gender identity: Female Physical Exam Const: COMMON NORMALS: no acute distress, patient oriented x3 and healthy appearing HENMT: COMMON NORMALS: normocephalic and atraumatic HEAD & SCALP: normocephalic and atraumatic Eye: COMMON NORMALS: Equal, round and reactive pupils present and EOMs intact bilaterally PUPIL: Yes Equal, round and reactive pupils present Neck/C-Spine: COMMON NORMALS: full ROM and supple Chest: COMMONS NORMALS: normal inspection of the chest and normal palpation of entire chest wall Resp: COMMON NORMALS: normal respiratory effort, No retractions, No use of accessory muscles and clear to auscultation bilaterally AUSCULTATION: clear to auscultation bilaterally Cardio: COMMON NORMALS: regular rate, regular rhythm and No murmurs present (Cardio) RATE: regular rate RHYTHM: regular rhythm GI: COMMON NORMALS: Normal to inspection, nondistended, normoactive bowel sounds present, Soft to palpation, non-tender and no masses PALPATION: Yes Soft to palpation Extremity: COMMON NORMALS: normal to inspection and full ROM Neuro: COMMON NORMALS: patient oriented x3, moves all extremities and no focal motor deficits Psych: COMMON NORMALS: mental status grossly normal, Normal thought process present and cooperative THOUGHT PROCESS: Normal thought process present Skin: COMMON NORMALS: no rashes or lesions noted and no wounds GENERAL SKIN EXAM: no rashes or lesions noted Course Vital Signs: Vital signs: Vital Signs Temperature 99.6 F 11/10/22 19:10 Pulse Rate 95 11/10/22 19:10 Respiratory Rate 18 11/10/22 19:58 Blood Pressure 96/39 11/10/22 21:40 Pulse Oximetry 96 11/10/22 20:30 Oxygen Delivery Me thod Room Air 11/10/22 19:10 MDM - Syncope Medical Decision Making Patient presents with abdominal pain along with a syncopal event she been well-appearing here pain here is currently subsided she did have a white count CT scan was completely normal she is requesting discharge at this point she is stable for discharge she is to follow-up with PCP and return if worsening. Medical Records I reviewed the patient's medical records. Lab Data I reviewed the patient's lab results. 11/10/22 19:45 11/10/22 19:45 Radiology Impressions Abdomen/Pelvis CT 11/10/22 20:24 IMPRESSION: 1. Previous cholecystectomy, appendectomy, and hysterectomy, as well as bladder mesh surgery. 2. Punctate nonobstructing right renal calculus, chronic with prior exam. 3. A component of constipation suggested, chronic with prior exam. 4. Suggestion of mild wall thickening in the proximal stomach raising the possibility gastritis. 5. No acute findings, otherwise. Head CT 11/10/22 20:24 IMPRESSION: No acute intracranial findings. Mild inflammatory changes of ethmoid air cells Laboratory Results WBC 21.4 10^3/uL (4.0-10.0) H 11/10/22 19:45 RBC 4.42 10^6/uL (4.1-5.3) 11/10/22 19:45 Hgb 14.0 g/dL (11.5-15.3) 11/10/22 19:45 Hct 42.3 % (37.0-47.0) 11/10/22 19:45 MCV 95.7 fl (81-99) 11/10/22 19:45 MCH 31.7 pg (28.0-34.0) 11/10/22 19:45 MCHC 33.1 g/dL (30.0-36.0) 11/10/22 19:45 RDW 14.6 % (12.1-15.1) 11/10/22 19:45 Plt Count 224 10^3/cmm (130-400) 11/10/22 19:45 MPV 10.2 fL (7.4-10.4) 11/10/22 19:45 Neut % (Auto) 88.1 % 11/10/22 19:45 Lymph % (Auto) 5.7 % 11/10/22 19:45 [place] % (Auto) 4.9 % 11/10/22 19:45 Eos % (Auto) 0.3 % 11/10/22 19:45 Baso % (Auto) 0.5 % 11/10/22 19:45 Neut # (Auto) 18.89 10^3/uL (1.8-7.7) H 11/10/22 19:45 Lymph # (Auto) 1.2 10^3/uL (0.8-4.8) 11/10/22 19:45 [place] # (Auto) 1.0 10^3/uL (0.2-0.9) H 11/10/22 19:45 Eos # (Auto) 0.1 10^3/uL (0.0-0.8) 11/10/22 19:45 Baso # (Auto) 0.1 10^3/uL (0.0-0.1) 11/10/22 19:45 Nucleated RBC % (auto) 0 % 11/10/22 19:45 Nucleated RBCs # 0.0 /100WBC 11/10/22 19:45 Sodium 135 mmol/L (136-145) L 11/10/22 19:45 Potassium 4.0 mmol/L (3.5-5.1) 11/10/22 19:45 Chloride 102 mmol/L (98-107) 11/10/22 19:45 Carbon Dioxide 20 mmol/L (22-29) L 11/10/22 19:45 Anion Gap 17.0 (5-19) 11/10/22 19:45 BUN 14 mg/dL (6-20) 11/10/22 19:45 Creatinine 0.9 mg/dL (0.5-0.9) 11/10/22 19:45 GFR Calculation 65.0 mL/min (90-130) L 11/10/22 19:45 Glucose 127 mg/dL (65-115) H 11/10/22 19:45 Calculated Osmolality 282 mOsm/kg (285-295) L 11/10/22 19:45 Calcium 8.5 mg/dL (8.5-10.5) 11/10/22 19:45 Total Bilirubin 0.3 mg/dL (0.15-1.2) 11/10/22 19:45 AST 14 U/L (0-32) 11/10/22 19:45 ALT 13 U/L (0-33) 11/10/22 19:45 Alkaline Phosphatase 116 U/L (35-105) H 11/10/22 19:45 Total Protein 6.2 g/dL (6.6-8.7) L 11/10/22 19:45 Albumin 3.7 g/dL (3.5-5.2) 11/10/22 19:45 Globulin 2.5 g/dL (1.3-4.6) 11/10/22 19:45 Lipase 25 U/L (13-60) 11/10/22 19:45 Urine Color Yellow (Yellow) 11/10/22 21:38 Urine Appearance Clear (CLEAR) 11/10/22 21:38 Urine pH 7 (5-7) 11/10/22 21:38 Ur Specific [place] 1.005 (1.005-1.030) 11/10/22 21:38 Urine Protein 1+ (Negative) H 11/10/22 21:38 Urine Glucose (UA) Norm (Normal) 11/10/22 21:38 Urine Ketones Negative (Negative) 11/10/22 21:38 Urine Blood Neg (Negative) 11/10/22 21:38 Urine Nitrate Negative (Negative) 11/10/22 21:38 Urine Bilirubin Neg (Negative) 11/10/22 21:38 Urine Urobilinogen Norm mg/dL (Negative) 11/10/22 21:38 Ur Leukocyte Esterase Negative (Negative) 11/10/22 21:38 Urine RBC None /hpf (0-2) 11/10/22 21:38 Urine WBC None /hpf (0-5) 11/10/22 21:38 Ur Squamous Epith Cells 0-4 /hpf (0-5) H 11/10/22 21:38 Amorphous Sediment Not Reportable 11/10/22 21:38 Urine Bacteria Trace /hpf (NONE) 11/10/22 21:38 Discharge Plan Discharge Patient Disposition: Home Clinical Impression: Abdominal pain, Syncope Condition: Stable Prescriptions: No Action montelukast [Singulair] 10 mg tablet 10 mg PO DAILY 90 Days Qty: 90 0RF jpqfixrguyyu-Ik-zghc-minerals 18-0.4 mg tablet PO Ingrezza 80 mg capsule 80 mg PO .hs Qty: 30 1RF Rx Instructions: Take one capsule by mouth every morning citalopram 40 mg tablet 40 mg PO .q am Qty: 30 1RF Rx Instructions: Take one tablet by mouth every morning lamotrigine 200 mg tablet 200 mg PO DAILY@06 Qty: 30 1RF Rx Instructions: Take one tablet by mouth every morning mirtazapine [Remeron] 15 mg tablet 7.5 mg PO .qhs Qty: 15 1RF Rx Instructions: Take one-half tablet daily at bedtime nystatin 100,000 unit/gram powder 1 applic topical BID Qty: 30 0RF Rx Instructions: apply locally to B/L groin folds Afrin (oxymetazoline) 0.05 % mist 2 spray intranasal Q12H PRN (Reason: nasal congestion) 3 Days Qty: 15 0RF pantoprazole 40 mg tablet,delayed release (DR/EC) See Rx Instructions .ROUTE .COMPLEX Qty: 90 0RF Dose Instruction: TAKE 1 TABLET BY MOUTH DAILY AT 6 AM Rx Instructions: TAKE 1 TABLET BY MOUTH DAILY AT 6 AM albuterol sulfate 90 mcg/actuation HFA aerosol inhaler See Rx Instructions .ROUTE .COMPLEX Qty: 8.5 0RF Dose Instruction: INHALE 2 PUFFS BY MOUTH EVERY 6 HOURS NEEDED FOR SHORTNESS OF BREATH OR WHEEZING Rx Instructions: INHALE 2 PUFFS BY MOUTH EVERY 6 HOURS NEEDED FOR SHORTNESS OF BREATH OR WHEEZING acetaminophen 500 mg Tablet 1,000 mg PO Q6H PRN (Reason: Pain) Trelegy Ellipta 200-62.5-25 mcg blister with device 1 ea inhalation DAILY@06 Rx Instructions: STOP BREO AND IPRATROPIUM Compazine 25 mg suppository 25 mg [place] Q12H PRN (Reason: nausea and vomiting) Qty: 12 0RF ondansetron 4 mg tablet,disintegrating 4 mg PO Q8H PRN (Reason: nausea and vomiting) Qty: 25 0RF Discharge Orders: Discharge ED (Routine); Ordered 11/10/22 Ordered By: Damien Urbina Referrals: Dara Tavera, WOOL BATTING WORKER [Primary Care Provider] - Discharge Activity: Resume usual activity Patient Instructions: Syncope (ED), Acute Abdominal Pain (ED), Abdominal Pain (ED) Coding Level of Care Code ED Director Of Casino for Chg Fwd
[2022-11-10 19:54] LABS: Basophils # 0.1 10^3/uL (0.0-0.1); Basophils % 0.5 %; Eosinophils # 0.1 10^3/uL (0.0-0.8); Eosinophils % 0.3 %; Hematocrit 42.3 % (37.0-47.0); Lymphocytes # 1.2 10^3/uL (0.8-4.8); Lymphocytes % 5.7 %; Mean Corpuscular HGB Conc 33.1 g/dL (30.0-36.0); Mean Corpuscular Hemoglobin 31.7 pg (28.0-34.0); Mean Corpuscular Volume 95.7 fl (81-99); Mean Platelet Volume 10.2 fL (7.4-10.4); Monocytes % 4.9 %; Neutrophils # 18.89 10^3/uL (1.8-7.7); Neutrophils % 88.1 %; Nucleated Red Blood Cells % 0 %; Platelet Count 224 10^3/cmm (130-400); Red Blood Count 4.42 10^6/uL (4.1-5.3); Red Cell Distribution Width 14.6 % (12.1-15.1); White Blood Count 21.4 10^3/uL (4.0-10.0)
[2022-11-10] MEDS: morphine 4 mg/mL SDV 1 mL IVP (19:58)
[2022-11-10] MEDS: ondansetron 2 mg/ML SDV 2 mL 4 MG IVP (19:58)
[2022-11-10 20:09] LABS: Alanine Aminotransferase 13 U/L (0-33); Albumin Level 3.7 g/dL (3.5-5.2); Alkaline Phosphatase 116 U/L (35-105); Blood Urea Nitrogen 14 mg/dL (6-20); Calcium 8.5 mg/dL (8.5-10.5); Carbon Dioxide 20 mmol/L (22-29); Chloride 102 mmol/L (98-107); Globulin 2.5 g/dL (1.3-4.6); Glucose 127 mg/dL (65-115); Lipase 25 U/L (13-60); Osmolality Calculated 282 mOsm/kg (285-295); Sodium 135 mmol/L (136-145); Total Bilirubin 0.3 mg/dL (0.15-1.2); Total Protein 6.2 g/dL (6.6-8.7)
[2022-11-10 20:14] LABS: Aspartate Amino Transferase 14 U/L (0-32)
[2022-11-10 20:19] LABS: Slide Review Slide Review Perform
--- NOTE | 2022-11-10 20:24 | CTR_ITS ---
PROCEDURE INFORMATION: Exam: CT Head Without Contrast Exam date and time: 11/10/2022 8:32 PM Age: 57 years old Clinical indication: Syncope and collapse; Patient HX: Syncopal episode TECHNIQUE: Imaging protocol: Computed tomography of the head without contrast. Radiation optimization: All CT scans at this facility use at least one of these dose optimization techniques: automated exposure control; mA and/or kV adjustment per patient size (includes targeted exams where dose is matched to clinical indication); or iterative reconstruction. REPORTING DATA: Count of CT and Cardiac NM exams in prior 12 months: This patient has received 7 known CTs and 0 known cardiac nuclear medicine studies in the 12 months prior to the current study. COMPARISON: CT head wo con* [id number] 03/08/2019 2:07 PM RADIATION DOSE METRICS: Total DLP (mGy-cm): 1103 FINDINGS: Brain: Normal. No hemorrhage. Unremarkable white matter. No mass effect. Cerebral ventricles: No ventriculomegaly. Paranasal sinuses: Partial opacification of ethmoid air cells. Mastoid air cells: Visualized mastoid air cells are well aerated. Bones/joints: No acute findings. Soft tissues: Unremarkable. CT/CT head wo con* [id number] IMPRESSION: No acute intracranial findings. Mild inflammatory changes of ethmoid air cells
--- NOTE | 2022-11-10 20:24 | CTR_ITS ---
PROCEDURE INFORMATION: Exam: CT Abdomen And Pelvis With Contrast Exam date and time: 11/10/2022 8:38 PM Age: 57 years old Clinical indication: Nausea and vomiting; Abdominal pain; Generalized; Prior surgery; Surgery date: 6+ months; Surgery type: Breast bx. Gb. Appy. Bladder mesh. Hysterectomy. Patient HX: Secondary complaint of diffuse abd pain with n/v which is chronic in nature. TECHNIQUE: Imaging protocol: Computed tomography of the abdomen and pelvis with contrast. Radiation optimization: All CT scans at this facility use at least one of these dose optimization techniques: automated exposure control; mA and/or kV adjustment per patient size (includes targeted exams where dose is matched to clinical indication); or iterative reconstruction. Contrast material: OMNI 350; Contrast volume: 100 ml; Contrast route: INTRAVENOUS (IV); REPORTING DATA: Count of CT and Cardiac NM exams in prior 12 months: This patient has received 7 known CTs and 0 known cardiac nuclear medicine studies in the 12 months prior to the current study. COMPARISON: CT abdomen pelvis wo con [id number] 09/28/2022 12:21 AM RADIATION DOSE METRICS: Total DLP (mGy-cm): 774.28 FINDINGS: Lungs: No significant infiltrate or effusion is seen within the visualized lung bases. Liver: Normal. No mass. Gallbladder and bile ducts: Surgical clips in the gallbladder fossa of prior cholecystectomy. No significant biliary ductal dilatation. Pancreas: Normal. No ductal dilation. Spleen: Normal. No splenomegaly. Adrenal glands: Normal. No mass. Kidneys and ureters: Punctate nonobstructing right renal calculus. Kidneys appear unremarkable otherwise. No obstructive uropathy or perinephric stranding. Stomach and bowel: Unremarkable. No obstruction. No mucosal thickening. Moderate stool volume throughout the colon, more prominent in the proximal half of the colon. Possible component of constipation. Suggestion of mild wall thickening in the proximal stomach. Appendix: Appendix is not seen, with history of appendectomy. Intraperitoneal space: Unremarkable. No free air. No significant fluid collection. Vasculature: Mild atherosclerotic vascular disease without aneurysmal dilatation of the abdominal aorta. Lymph nodes: Unremarkable. No enlarged lymph nodes. Urinary bladder: History of bladder mesh. Partially distended urinary bladder without focal abnormality. Reproductive: Postsurgical changes in the pelvis including hysterectomy. Bones/joints: Spondylotic change lumbar spine mild degenerative disc disease L4-5. Soft tissues: Unremarkable. CT/CT abdomen pelvis w con* [id number] IMPRESSION: 1. Previous cholecystectomy, appendectomy, and hysterectomy, as well as bladder mesh surgery. 2. Punctate nonobstructing right renal calculus, chronic with prior exam. 3. A component of constipation suggested, chronic with prior exam. 4. Suggestion of mild wall thickening in the proximal stomach raising the possibility gastritis. 5. No acute findings, otherwise.
[2022-11-10] MEDS: acetaminophen 500 mg Tablet 1000 MG PO (20:56)
[2022-11-10] MEDS: sodium chloride 0.9% 1,000 ML 999 ML IV (20:57)
[2022-11-10 22:01] LABS: Add Urine Microscopic? YES; Bilirubin Urine Neg (Negative); Blood Urine Neg (Negative); Glucose Urine UA Norm (Normal); Ketones Urine Negative (Negative); Leukocyte Esterase Urine Negative (Negative); Nitrate Urine Negative (Negative); Protein Urine 1+ (Negative); Specific Gravity, Urine 1.005 (1.005-1.030); Urine Appearance Clear (CLEAR); Urine Color Yellow (Yellow); Urobilinogen Urine Norm (Negative); pH Urine 7 (5-7)
[2022-11-10 22:02] LABS: Add Urine Culture? No; Bacteria Urine TRACE /hpf; Squamous Epithelial Cell Urine 0-4 /hpf (0-5)
== END 2022-11-10 22:29 | disposition home or self-care (01) ==
PROVIDERS: Emergency Provider Emergency Medicine; PCP Registered Nurse
DX: R55 Syncope and collapse (principal); R10.9 Unspecified abdominal pain; F17.210 Nicotine dependence, cigarettes, uncomplicated; J44.9 Chronic obstructive pulmonary disease, unspecified
CPT/HCPCS: 70450; 74177; 80053; 81001; 83690; 85025; 93005; 96361; 96374; 96375; 99285; J2270; J2405; J7030

== ENCOUNTER 2022-11-19 22:07 | Emergency (ER) | payer MEDICARE, MEDICAID, SELFPAY ==
[2022-11-19 22:18] VITALS: BP 109/59; PULSE 79; RESP 16; TEMP 36.7; O2SAT 97; BMI 30.7
--- NOTE | 2022-11-19 22:43 | ED_ITS ---
HPI - Abdominal Pain General: Chief Complaint: Abdominal Pain Stated Complaint: Adominal Pain nausea Time Seen by Provider: 11/19/22 22:21 Source: patient Mode of arrival: ambulatory Limitations: no limitations History of Present Illness: 57-year-old female who states that she is chronic abdominal pain from gastroparesis. She states that she has been having some slight pain and nausea throughout the day. She rates her pain a 4 out of 10 currently no fever denies any worsening proving factors she is resting comfortably here. Associated Symptoms: Denies chills, diarrhea, fever(s), nausea and vomiting Review of Systems Const: Denies: fever(s), chills, body aches or change in appetite ENMT: Denies: throat pain or dental pain Card: Denies: chest pain Resp: Denies: dyspnea GI: Denies: abdominal pain, nausea, vomiting or diarrhea Musc: Denies: neck pain or back pain Skin/Breast: Denies: rash Neuro: Denies: headache(s) PFS ED PFSH: Medical History Bladder stone Borderline personality disorder Cannabis dependence, uncomplicated Chronic anxiety Chronic back pain greater than 3 months duration Chronic gastritis without bleeding COPD (chronic obstructive pulmonary disease) Cystitis cystica Dysphagia Esophageal stricture Foreign body in bladder GERD without esophagitis Insomnia Neurogenic bladder Opioid dependence, uncomplicated Psychiatric care Restrictive lung disease Schizoaffective disorder, bipolar type Tardive dyskinesia Tobacco use disorder Urgency incontinence Surgical History H/O bladder repair surgery MESH REPAIR H/O colonoscopy with polypectomy H/O esophagogastroduodenoscopy (09/21/20) H/O: hysterectomy History of appendectomy History of breast biopsy History of foot surgery sx in 2009. Screws placed by Dr. Don. History of ureter stent Hx of cholecystectomy S/P bronchoscopy with biopsy Family History Mother No problems noted. Father No problems noted. Other Asthma Cancer Diabetes Heart disease Social History Smoking and tobacco status: current every day smoker cigarettes Packs smoked per day: 1 Years cigarettes smoked: 20 [ Other cigarette details: Hx of 1 PPD x 20 Years, started at age 27] Quit status (tobacco): considering quitting Second hand smoke exposure: Yes Smoking risk assessment/counseling performed?: No Alcohol intake: never Counseling given: No Substance/Drug Use: former Counseling given: No Lives independently: Yes Household members: spouse Marital status: Number of children: 3 Current occupational status: disabled Do you think of yourself as: Straight/Heterosexual Current gender identity: Female Physical Exam Const: COMMON NORMALS: no acute distress, patient oriented x3 and healthy appearing HENMT: COMMON NORMALS: normocephalic and atraumatic HEAD & SCALP: normocephalic and atraumatic Neck/C-Spine: COMMON NORMALS: full ROM and supple Chest: COMMONS NORMALS: normal inspection of the chest and normal palpation of entire chest wall Resp: COMMON NORMALS: normal respiratory effort, No retractions, No use of accessory muscles and clear to auscultation bilaterally AUSCULTATION: clear to auscultation bilaterally Cardio: COMMON NORMALS: regular rate, regular rhythm and No murmurs present (Cardio) RATE: regular rate RHYTHM: regular rhythm GI: COMMON NORMALS: Normal to inspection, nondistended, normoactive bowel sounds present, Soft to palpation, non-tender and no masses PALPATION: Yes Soft to palpation Extremity: COMMON NORMALS: normal to inspection and full ROM Neuro: COMMON NORMALS: patient oriented x3, moves all extremities and no focal motor deficits Psych: COMMON NORMALS: mental status grossly normal, Normal thought process present and cooperative THOUGHT PROCESS: Normal thought process present Skin: COMMON NORMALS: no rashes or lesions noted and no wounds GENERAL SKIN EXAM: no rashes or lesions noted Course Vital Signs: Vital signs: Vital Signs Temperature 98.0 F 11/19/22 22:18 Pulse Rate 79 11/19/22 22:18 Respiratory Rate 16 11/19/22 22:18 Blood Pressure 109/59 11/19/22 22:18 Pulse Oximetry 97 11/19/22 22:18 MDM - Abdominal Pain Medical Decision Making Patient presents here with abdominal pain that is chronic in nature she does have gastroparesis she just wants IM shots she has had multiple acute work-ups in the past has had a recent CT scan that was normal do not feel she needs more blood work her abdominal exam here is benign we will place her on Reglan for home she is has an allergy listed to Reglan but states that it helps her oral form and would like to try it. Discharge Plan Discharge Patient Disposition: Home Clinical Impression: Abdominal pain Condition: Stable Prescriptions: New Reglan 10 mg tablet 10 mg PO Q6H PRN (Reason: nausea and vomiting) Qty: 20 0RF No Action montelukast [Singulair] 10 mg tablet 10 mg PO DAILY 90 Days Qty: 90 0RF bqlgaqefqrpz-Kj-fgzv-minerals 18-0.4 mg tablet PO Ingrezza 80 mg capsule 80 mg PO .hs Qty: 30 1RF Rx Instructions: Take one capsule by mouth every morning citalopram 40 mg tablet 40 mg PO .q am Qty: 30 1RF Rx Instructions: Take one tablet by mouth every morning lamotrigine 200 mg tablet 200 mg PO DAILY@06 Qty: 30 1RF Rx Instructions: Take one tablet by mouth every morning mirtazapine [Remeron] 15 mg tablet 7.5 mg PO .qhs Qty: 15 1RF Rx Instructions: Take one-half tablet daily at bedtime nystatin 100,000 unit/gram powder 1 applic topical BID Qty: 30 0RF Rx Instructions: apply locally to B/L groin folds Afrin (oxymetazoline) 0.05 % mist 2 spray intranasal Q12H PRN (Reason: nasal congestion) 3 Days Qty: 15 0RF pantoprazole 40 mg tablet,delayed release (DR/EC) See Rx Instructions .ROUTE .COMPLEX Qty: 90 0RF Dose Instruction: TAKE 1 TABLET BY MOUTH DAILY AT 6 AM Rx Instructions: TAKE 1 TABLET BY MOUTH DAILY AT 6 AM albuterol sulfate 90 mcg/actuation HFA aerosol inhaler See Rx Instructions .ROUTE .COMPLEX Qty: 8.5 0RF Dose Instruction: INHALE 2 PUFFS BY MOUTH EVERY 6 HOURS NEEDED FOR SHORTNESS OF BREATH OR WHEEZING Rx Instructions: INHALE 2 PUFFS BY MOUTH EVERY 6 HOURS NEEDED FOR SHORTNESS OF BREATH OR WHEEZING acetaminophen 500 mg Tablet 1,000 mg PO Q6H PRN (Reason: Pain) Trelegy Ellipta 200-62.5-25 mcg blister with device 1 ea inhalation DAILY@06 Rx Instructions: STOP BREO AND IPRATROPIUM Compazine 25 mg suppository 25 mg [place] Q12H PRN (Reason: nausea and vomiting) Qty: 12 0RF ondansetron 4 mg tablet,disintegrating 4 mg PO Q8H PRN (Reason: nausea and vomiting) Qty: 25 0RF Discharge Orders: Discharge ED (Routine); Ordered 11/19/22 Ordered By: Damien Urbina Referrals: Dara Tavera FNP [Primary Care Provider] - 1-3 days Discharge Diet: Advance as tolerated Discharge Activity: Resume usual activity Patient Instructions: Abdominal Pain (ED) Coding Level of Care Code ED Truck Crane Operator Helper for Shellie Guallpa
[2022-11-19 23:01] VITALS: RESP 18
[2022-11-19] MEDS: morphine 4 mg/mL SDV 1 mL IM (23:01)
[2022-11-19] MEDS: diphenhydrAMINE 50 mg/mL SDV 1mL 25 MG IM (23:02)
[2022-11-19] MEDS: metoclopramide 5 mg/mL SDV 2 mL IM (23:02)
[2022-11-19 23:08] VITALS: BP 118/66; PULSE 64; O2SAT 96
== END 2022-11-19 23:10 | disposition home or self-care (01) ==
PROVIDERS: Emergency Provider Emergency Medicine; PCP Registered Nurse
DX: R10.9 Unspecified abdominal pain (principal); G89.29 Other chronic pain; K31.84 Gastroparesis
CPT/HCPCS: 96372; 99284; J1200; J2270; J2765

== ENCOUNTER 2022-11-24 19:20 | Emergency (ER) | payer MEDICARE, MEDICAID, SELFPAY ==
[2022-11-24 19:21] VITALS: BP 97/62; PULSE 74; RESP 16; TEMP 36.7; O2SAT 95; BMI 30.7
--- NOTE | 2022-11-24 19:27 | XRR_ITS ---
PROCEDURE INFORMATION: Exam: XR Chest Exam date and time: 11/24/2022 7:32 PM Age: 57 years old Clinical indication: Pain; Chest pressure; Additional info: Chest pain TECHNIQUE: Imaging protocol: Radiologic exam of the chest. Views: 1 view. COMPARISON: CR (CHEST, ) 10/31/2022 4:59 AM FINDINGS: Lungs: Unremarkable. No consolidation. Pleural spaces: Unremarkable. No pleural effusion. No pneumothorax. Heart/Mediastinum: Unremarkable. No cardiomegaly. Bones/joints: Unremarkable. XR/XR chest 1V portable [id number] IMPRESSION: No change, lungs clear
--- NOTE | 2022-11-24 19:27 | ECG_ITS ---
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 Measurements Intervals Jensen Rate: 74 P: 55 NV: 159 QRS: 40 QRSD: 101 T: 53 QT: 386 QTc: 429 Interpretive Statements SINUS RHYTHM Compared to ECG 11/10/2022 19:35:12 No significant changes Electronically Signed On 11-25-2022 10:28:32 CDT by Severo Aly M.D. [id number]
--- NOTE | 2022-11-24 19:28 | ED_ITS ---
HPI - Chest Pain General: Chief Complaint: Chest Pain Stated Complaint: CP Time Seen by Provider: 11/24/22 19:27 History of Present Illness: Patient presents to the ER by EMS with complaints of chest pain. This pain is left-sided worse when she takes a big deep breath. Pain started approximately 10:00 this morning has been ongoing ever since. Patient did take 500 mg of Tylenol around 5 PM and also she took 4 baby aspirin approximately 10 minutes for EMS arrived. Per EMS patient was recently diagnosed with new onset CHF on 11/13/2022 at [facility]. complaint: chest pain Onset (ago): hour(s) (About 10 hours ago) Timing of current episode: episodic Prior episodes: Yes Pain location: left chest (Left upper abdomen) Pain radiation: none Severity: mild Quality: sharp Relieving factors: nothing Exacerbating factors: inspiration and palpation Treatment prior to arrival: aspirin Review of Systems General: Reports: 10 or more systems reviewed and unremarkable except in HPI and below PFSH ED PFSH: Medical History Bladder stone Borderline personality disorder Cannabis dependence, uncomplicated Chronic anxiety Chronic back pain greater than 3 months duration Chronic gastritis without bleeding COPD (chronic obstructive pulmonary disease) Cystitis cystica Dysphagia Esophageal stricture Foreign body in bladder GERD without esophagitis Insomnia Neurogenic bladder Opioid dependence, uncomplicated Psychiatric care Restrictive lung disease Schizoaffective disorder, bipolar type Tardive dyskinesia Tobacco use disorder Urgency incontinence Surgical History H/O bladder repair surgery MESH REPAIR H/O colonoscopy with polypectomy H/O esophagogastroduodenoscopy (09/21/20) H/O: hysterectomy History of appendectomy History of breast biopsy History of foot surgery sx in 2009. Screws placed by Dr. Don. History of ureter stent Hx of cholecystectomy S/P bronchoscopy with biopsy Family History Mother No problems noted. Father No problems noted. Other Asthma Cancer Diabetes Heart disease Social History Smoking and tobacco status: current every day smoker cigarettes Packs smoked per day: 1 Years cigarettes smoked: 20 [ Other cigarette details: Hx of 1 PPD x 20 Years, started at age 27] Quit status (tobacco): considering quitting Second hand smoke exposure: Yes Smoking risk assessment/counseling performed?: No Alcohol intake: never Counseling given: No Substance/Drug Use: former Counseling given: No Lives independently: Yes Household members: spouse Marital status: Number of children: 3 Current occupational status: disabled Do you think of yourself as: Straight/Heterosexual Current gender identity: Female Physical Exam Const: COMMON NORMALS: no acute distress, average body habitus, patient oriented x3, no limitations, healthy appearing, alert and well nourished HENMT: COMMON NORMALS: normocephalic, atraumatic, hearing grossly normal bilaterally, external ears normal, Normal external nose present and moist oral mucous membranes HEAD & SCALP: normocephalic and atraumatic NOSE: Normal external nose present EXTERNAL EAR: Yes external ears normal Eye: COMMON NORMALS: Equal, round and reactive pupils present, EOMs intact bilaterally, conjunctivae normal and no scleral icterus CONJUNCTIVA: Yes conjunctivae normal PUPIL: Yes Equal, round and reactive pupils present Neck/C-Spine: COMMON NORMALS: full ROM, no lymphadenopathy, supple, no meningeal signs, no JVD and Thyroid normal THYROID: Thyroid normal Chest: COMMONS NORMALS: normal inspection of the chest; negative for normal palpation of entire chest wall (Palpation of left chest re produces pain.) Resp: COMMON NORMALS: normal respiratory effort, No retractions and No use of accessory muscles; negative for clear to auscultation bilaterally (Diffuse expiratory wheezing) AUSCULTATION: not clear to auscultation bilaterally (Diffuse expiratory wheezing) Cardio: COMMON NORMALS: no JVD, regular rate, regular rhythm, S1 normal heart sound present, S2 normal heart sound present, No gallops present (Cardio), No clicks present (Cardio), No murmurs present (Cardio) and No rub (Cardio) RATE: regular rate RHYTHM: regular rhythm HEART SOUNDS: S1 normal heart sound present and S2 normal heart sound present GI: COMMON NORMALS: Normal to inspection, nondistended, normoactive bowel sounds present, Soft to palpation, non-tender, No hepatosplenomegaly present and no masses PALPATION: Yes Soft to palpation and Yes No hepatosplenomegaly present Neuro: COMMON NORMALS: patient oriented x3 SENSORIUM/ORIENTATION: Yes alert MENINGEAL SIGNS: Yes no meningeal signs Course Vital Signs: Vital signs: Vital Signs Temperature 98.1 F 11/24/22 19:21 Pulse Rate 65 11/24/22 20:24 Respiratory Rate 20 H 11/24/22 20:24 Blood Pressure 97/62 11/24/22 19:21 Pulse Oximetry 97 11/24/22 20:24 Oxygen Delivery Me thod Room Air 11/24/22 20:24 MDM - Chest Pain Medical Decision Making Patient presents to the ER with chest pain left-sided reproducible with palpation and inspiration. Physical exam was performed as well as normal ca rdiac work-up which was which was benign. EKG showed no ST-T wave changes chest x-ray was negative as well as lab work. Is thought the patient has more of a pleuritic type chest pain and is noncardiac in nature. Patient be discharged home to follow-up with her PCP on an as-needed basis. Differential Diagnosis Unlikely acute massive pulmonary embolism, acute respiratory failure, acute myocardial infarction, cardiac arrest or sudden cardiac Medical Records I reviewed the patient's medical records. Lab Data I reviewed the patient's lab results. 11/24/22 19:35 11/24/22 19:35 Radiology Impressions Chest X-Ray 11/24/22 19:27 IMPRESSION: No change, lungs clear Laboratory Results WBC 12.0 10^3/uL (4.0-10.0) H 11/24/22 19:35 RBC 4.65 10^6/uL (4.1-5.3) 11/24/22 19:35 Hgb 14.2 g/dL (11.5-15.3) 11/24/22 19:35 Hct 43.7 % (37.0-47.0) 11/24/22 19:35 MCV 94.0 fl (81-99) 11/24/22 19:35 MCH 30.5 pg (28.0-34.0) 11/24/22 19:35 MCHC 32.5 g/dL (30.0-36.0) 11/24/22 19:35 RDW 14.8 % (12.1-15.1) 11/24/22 19:35 Plt Count 262 10^3/cmm (130-400) 11/24/22 19:35 MPV 10.2 fL (7.4-10.4) 11/24/22 19:35 Neut % (Auto) 67.7 % 11/24/22 19:35 Lymph % (Auto) 23.5 % 11/24/22 19:35 Gilliam % (Auto) 5.9 % 11/24/22 19:35 Eos % (Auto) 1.7 % 11/24/22 19:35 Baso % (Auto) 0.8 % 11/24/22 19:35 Neut # (Auto) 8.09 10^3/uL (1.8-7.7) H 11/24/22 19:35 Lymph # (Auto) 2.8 10^3/uL (0.8-4.8) 11/24/22 19:35 Gilliam # (Auto) 0.7 10^3/uL (0.2-0.9) 11/24/22 19:35 Eos # (Auto) 0.2 10^3/uL (0.0-0.8) 11/24/22 19:35 Baso # (Auto) 0.1 10^3/uL (0.0-0.1) 11/24/22 19:35 Nucleated RBC % (auto) 0 % 11/24/22 19:35 Nucleated RBCs # 0.0 /100WBC 11/24/22 19:35 Sodium 140 mmol/L (136-145) 11/24/22 19:35 Potassium 4.0 mmol/L (3.5-5.1) 11/24/22 19:35 Chloride 107 mmol/L (98-107) 11/24/22 19:35 Carbon Dioxide 23 mmol/L (22-29) 11/24/22 19:35 Anion Gap 14.0 (5-19) 11/24/22 19:35 BUN 13 mg/dL (6-20) 11/24/22 19:35 Creatinine 1.0 mg/dL (0.5-0.9) H 11/24/22 19:35 GFR Calculation 57.6 mL/min (90-130) L 11/24/22 19:35 Glucose 98 mg/dL (65-115) 11/24/22 19:35 Calculated Osmolality 290 mOsm/kg (285-295) 11/24/22 19:35 Calcium 8.6 mg/dL (8.5-10.5) 11/24/22 19:35 Total Bilirubin 0.2 mg/dL (0.15-1.2) 11/24/22 19:35 AST 10 U/L (0-32) 11/24/22 19:35 ALT 7 U/L (0-33) 11/24/22 19:35 Alkaline Phosphatase 118 U/L (35-105) H 11/24/22 19:35 Troponin T Baseline 6 ng/L (0-10) 11/24/22 19:35 NT-Pro-B Natriuret Pep 381 pg/mL (0-125) H 11/24/22 19:35 Total Protein 5.8 g/dL (6.6-8.7) L 11/24/22 19:35 Albumin 4.0 g/dL (3.5-5.2) 11/24/22 19:35 Globulin 1.8 g/dL (1.3-4.6) 11/24/22 19:35 EKG Data EKG 1: I personally reviewed and interpreted this EKG as follows: EKG interpretation date: 11/24/22 EKG interpretation time: :23 Prior EKG tracings: not available for review Interpretation: EKG showed normal sinus rhythm, ventricular rate 74 beats minute, AR interval 159, QRS duration 101, QTc 413, no ST-T wave changes Discharge Plan Discharge Patient Disposition: Home Clinical Impression: Atypical chest pain Condition: Stable Prescriptions: No Action montelukast [Singulair] 10 mg tablet 10 mg PO DAILY 90 Days Qty: 90 0RF [id number]-Qq-pslj-minerals 18-0.4 mg tablet PO Ingrezza 80 mg capsule 80 mg PO .hs Qty: 30 1RF Rx Instructions: Take one capsule by mouth every morning citalopram 40 mg tablet 40 mg PO .q am Qty: 30 1RF Rx Instructions: Take one tablet by mouth every morning lamotrigine 200 mg tablet 200 mg PO DAILY@06 Qty: 30 1RF Rx Instructions: Take one tablet by mouth every morning mirtazapine [Remeron] 15 mg tablet 7.5 mg PO .qhs Qty: 15 1RF Rx Instructions: Take one-half tablet daily at bedtime nystatin 100,000 unit/gram powder 1 applic topical BID Qty: 30 0RF Rx Instructions: apply locally to B/L groin folds Afrin (oxymetazoline) 0.05 % mist 2 spray intranasal Q12H PRN (Reason: nasal congestion) 3 Days Qty: 15 0RF pantoprazole 40 mg tablet,delayed release (DR/EC) See Rx Instructions .ROUTE .COMPLEX Qty: 90 0RF Dose Instruction: TAKE 1 TABLET BY MOUTH DAILY AT 6 AM Rx Instructions: TAKE 1 TABLET BY MOUTH DAILY AT 6 AM albuterol sulfate 90 mcg/actuation HFA aerosol inhaler See Rx Instructions .ROUTE .COMPLEX Qty: 8.5 0RF Dose Instruction: INHALE 2 PUFFS BY MOUTH EVERY 6 HOURS NEEDED FOR SHORTNESS OF BREATH OR WHEEZING Rx Instructions: INHALE 2 PUFFS BY MOUTH EVERY 6 HOURS NEEDED FOR SHORTNESS OF BREATH OR WHEEZING acetaminophen 500 mg Tablet 1,000 mg PO Q6H PRN (Reason: Pain) Trelegy Ellipta 200-62.5-25 mcg blister with device 1 ea inhalation DAILY@06 Rx Instructions: STOP BREO AND IPRATROPIUM Compazine 25 mg suppository 25 mg AR Q12H PRN (Reason: nausea and vomiting) Qty: 12 0RF ondansetron 4 mg tablet,disintegrating 4 mg PO Q8H PRN (Reason: nausea and vomiting) Qty: 25 0RF Reglan 10 mg tablet 10 mg PO Q6H PRN (Reason: nausea and vomiting) Qty: 20 0RF Discharge Orders: Discharge ED (Routine); Ordered 11/24/22 Ordered By: Colby Fisher Referrals: Dara Tavera, [facility] REFERRAL CLERK [Primary Care Provider] - Patient Instructions: Chest Pain - Noncardiac Activity Restrictions/Additional Instructions: Please follow-up with your primary care doctor in the next week for further evaluation and treatment of your noncardiac chest pain. If this pain worsens or changes feel free to come back to the ER for further evaluation. Coding Level of Care Code ED [facility] for Shellie Guallpa
[2022-11-24 19:51] LABS: Basophils # 0.1 10^3/uL (0.0-0.1); Basophils % 0.8 %; Eosinophils # 0.2 10^3/uL (0.0-0.8); Eosinophils % 1.7 %; Hematocrit 43.7 % (37.0-47.0); Hemoglobin 14.2 g/dL (11.5-15.3); Lymphocytes # 2.8 10^3/uL (0.8-4.8); Lymphocytes % 23.5 %; Mean Corpuscular HGB Conc 32.5 g/dL (30.0-36.0); Mean Corpuscular Hemoglobin 30.5 pg (28.0-34.0); Mean Platelet Volume 10.2 fL (7.4-10.4); Monocytes # 0.7 10^3/uL (0.2-0.9); Monocytes % 5.9 %; Neutrophils # 8.09 10^3/uL (1.8-7.7); Neutrophils % 67.7 %; Nucleated Red Blood Cells % 0 %; Platelet Count 262 10^3/cmm (130-400); Red Blood Count 4.65 10^6/uL (4.1-5.3); Red Cell Distribution Width 14.8 % (12.1-15.1)
[2022-11-24] MEDS: ondansetron 2 mg/ML SDV 2 mL 4 MG IVP (20:00)
[2022-11-24 20:02] VITALS: RESP 16; O2SAT 94
[2022-11-24] MEDS: morphine 4 mg/mL SDV 1 mL 2 MG IVP (20:02)
[2022-11-24 20:17] LABS: Troponin(5th) Baseline 6 ng/L (0-10)
[2022-11-24] MEDS: ipratropium-albuterol 3 mL Neb INHALATION (20:23)
[2022-11-24 20:24] VITALS: PULSE 65; RESP 20; O2SAT 97
[2022-11-24 20:26] LABS: Alanine Aminotransferase 7 U/L (0-33); Alkaline Phosphatase 118 U/L (35-105); Aspartate Amino Transferase 10 U/L (0-32); Blood Urea Nitrogen 13 mg/dL (6-20); Calcium 8.6 mg/dL (8.5-10.5); Carbon Dioxide 23 mmol/L (22-29); Chloride 107 mmol/L (98-107); Globulin 1.8 g/dL (1.3-4.6); Glomerular Filtration Rate 57.6 mL/min (90-130); Glucose 98 mg/dL (65-115); NT Pro B Type Natriuretic Pept 381 pg/mL (0-125); Osmolality Calculated 290 mOsm/kg (285-295); Sodium 140 mmol/L (136-145); Total Bilirubin 0.2 mg/dL (0.15-1.2); Total Protein 5.8 g/dL (6.6-8.7)
[2022-11-24] MEDS: morphine 4 mg/mL SDV 1 mL IVP (20:53)
[2022-11-24 20:57] VITALS: BP 92/40; PULSE 81; RESP 16; O2SAT 95
== END 2022-11-24 20:57 | disposition home or self-care (01) ==
PROVIDERS: Emergency Provider Emergency Medicine; PCP Registered Nurse
DX: R07.89 Other chest pain (principal)
CPT/HCPCS: 36415; 71045; 80053; 83880; 84484; 85025; 93005; 94640; 96374; 96375; 96376; 99285; J2270; J2405

== ENCOUNTER 2022-12-01 22:03 | Emergency (ER) | payer MEDICARE, MEDICAID, SELFPAY ==
[2022-12-01 22:17] VITALS: BP 109/72; PULSE 94; RESP 16; TEMP 36.8; O2SAT 97
[2022-12-01 23:56] LABS: Basophils # 0.1 10^3/uL (0.0-0.1); Basophils % 0.6 %; Eosinophils # 0.1 10^3/uL (0.0-0.8); Hematocrit 46.8 % (37.0-47.0); Hemoglobin 15.4 g/dL (11.5-15.3); Lymphocytes # 2.5 10^3/uL (0.8-4.8); Lymphocytes % 16.7 %; Mean Corpuscular HGB Conc 32.9 g/dL (30.0-36.0); Mean Corpuscular Hemoglobin 31.7 pg (28.0-34.0); Mean Corpuscular Volume 96.3 fl (81-99); Mean Platelet Volume 10.2 fL (7.4-10.4); Monocytes # 0.7 10^3/uL (0.2-0.9); Monocytes % 4.4 %; Neutrophils # 11.28 10^3/uL (1.8-7.7); Neutrophils % 76.8 %; Nucleated Red Blood Cells % 0 %; Platelet Count 220 10^3/cmm (130-400); Red Blood Count 4.86 10^6/uL (4.1-5.3); White Blood Count 14.7 10^3/uL (4.0-10.0)
[2022-12-02] VITALS (8 sets, daily range): BP systolic 99–116; BP diastolic 54–72; PULSE 63–73; RESP 14–17; TEMP 36.6; O2SAT 95–97
[2022-12-02 00:17] LABS: Alanine Aminotransferase 7 U/L (0-33); Albumin Level 4.1 g/dL (3.5-5.2); Alkaline Phosphatase 131 U/L (35-105); Anion Gap 16.9 (5-19); Aspartate Amino Transferase 9 U/L (0-32); Blood Urea Nitrogen 12 mg/dL (6-20); Calcium 9.5 mg/dL (8.5-10.5); Carbon Dioxide 21 mmol/L (22-29); Chloride 103 mmol/L (98-107); Globulin 2.7 g/dL (1.3-4.6); Glucose 92 mg/dL (65-115); Lipase 28 U/L (13-60); Osmolality Calculated 283 mOsm/kg (285-295); Potassium 3.9 mmol/L (3.5-5.1); Sodium 137 mmol/L (136-145); Total Bilirubin 0.3 mg/dL (0.15-1.2); Total Protein 6.8 g/dL (6.6-8.7)
--- NOTE | 2022-12-02 02:02 | CTR_ITS ---
PROCEDURE INFORMATION: Exam: CT Abdomen And Pelvis With Contrast Exam date and time: 12/02/2022 2:25 AM Age: 57 years old Clinical indication: Abdominal pain; Localized; Prior surgery; Surgery date: 6+ months; Surgery type: Breast bx. Gb. Appy. Bladder mesh. Hysterectomy. Patient HX: Lower abd pain. Mildy elevated wbc. Possible gastritis noted on CT from 11/10/2022. ; Additional info: Lower abd pain-leukocytosis TECHNIQUE: Imaging protocol: Computed tomography of the abdomen and pelvis with contrast. Total images: 509 Radiation optimization: All CT scans at this facility use at least one of these dose optimization techniques: automated exposure control; mA and/or kV adjustment per patient size (includes targeted exams where dose is matched to clinical indication); or iterative reconstruction. Contrast material: OMNI 350; Contrast volume: 100 ml; Contrast route: INTRAVENOUS (IV); REPORTING DATA: Count of CT and Cardiac NM exams in prior 12 months: This patient has received 8 known CTs and 0 known cardiac nuclear medicine studies in the 12 months prior to the current study. COMPARISON: CT abdomen pelvis w con* [id number] 11/10/2022 8:38 PM RADIATION DOSE METRICS: Total DLP (mGy-cm): 659.83 FINDINGS: Liver: Normal. No mass. Gallbladder and bile ducts: Prior cholecystectomy noted. Pancreas: Normal. No ductal dilation. Spleen: Normal. No splenomegaly. Adrenal glands: Normal. No mass. Kidneys and ureters: Normal. No hydronephrosis. Stomach and bowel: Unremarkable. No obstruction. No mucosal thickening. Appendix: Patient is status post appendectomy. Intraperitoneal space: Unremarkable. No free air. No significant fluid collection. Vasculature: Mild atherosclerotic disease is evident. Incidental phleboliths noted. Lymph nodes: Unremarkable. No enlarged lymph nodes. Urinary bladder: Unremarkable as visualized. Reproductive: Prior hysterectomy noted. Bones/joints: Disc degeneration is most notable at L4/L5. Soft tissues: Previously repaired left inguinal hernia. CT/CT abdomen pelvis w con* [id number] IMPRESSION: No acute intra-abdominal pathology.
[2022-12-02 02:06] LABS: Specific Gravity, Urine 1.025 (1.005-1.030); Urine Appearance SL Hazy (CLEAR); Urine Color Yellow (Yellow); pH Urine 5 (5-7)
[2022-12-02 02:07] LABS: Add Urine Microscopic? YES; Bilirubin Urine 1+ (Negative); Blood Urine Neg (Negative); Glucose Urine UA Norm (Normal); Ketones Urine 1+ (Negative); Leukocyte Esterase Urine 1+ (Negative); Nitrate Urine Negative (Negative); Protein Urine Neg (Negative); Urobilinogen Urine 1 mg/dL (Negative)
[2022-12-02 02:08] LABS: Add Urine Culture? No; Bacteria Urine TRACE /hpf; Mucus Urine 2+ /hpf; RBC Urine 0-4 /hpf (0-2); Squamous Epithelial Cell Urine 40-55 /hpf (0-5); WBC Urine 25-40 /hpf (0-5)
[2022-12-02] MEDS: iohexol 350 mg/mL 500 mL Btl (per mL) IV (02:30)
--- NOTE | 2022-12-02 03:00 | W.ED.ABDPA2 ---
Documented by User: STEPHANIE Benavides 12/02/22 03:28 HPI - Abdominal Pain General: Chief Complaint: Abdominal Pain Stated Complaint: ABD PAIN Time Seen by Provider: 12/02/22 01:40 History of Present Illness: Patient is in for abdominal pain. She reports that her abdominal pain really started yesterday is worse in significantly today. Patient reports that she has a long history of gastroparesis and frequently has this kind of pain. She denies any fever or chills. She reports vomiting x6 times today with no blood in her emesis. She does report that she had a normal stool this morning. She reports that she has some hesitancy with urination but does not have any burning with urination. She reports that she has numerous medication allergies and is hoping to get morphine and Compazine to help with pain and nausea. Associated Symptoms: Reports nausea and vomiting; Denies chills, constipation, dysuria and fever(s) Review of Systems Const: Denies: fever(s) or chills Card: Denies: chest pain or palpitations Resp: Denies: dyspnea GI: Reports: abdominal pain, nausea and vomiting; Denies: constipation : Reports: oliguria; Denies: flank pain, difficulty voiding, dysuria, urinary frequency or urinary urgency [facility] PFSH: Medical History Bladder stone Borderline personality disorder Cannabis dependence, uncomplicated Chronic anxiety Chronic back pain greater than 3 months duration Chronic gastritis without bleeding COPD (chronic obstructive pulmonary disease) Cystitis cystica Dysphagia Esophageal stricture Foreign body in bladder GERD without esophagitis Insomnia Neurogenic bladder Opioid dependence, uncomplicated Psychiatric care Restrictive lung disease Schizoaffective disorder, bipolar type Tardive dyskinesia Tobacco use disorder Urgency incontinence Surgical History H/O bladder repair surgery MESH REPAIR H/O colonoscopy with polypectomy H/O esophagogastroduodenoscopy (09/21/20) H/O: hysterectomy History of appendectomy History of breast biopsy History of foot surgery sx in 2009. Screws placed by Dr. Don. History of ureter stent Hx of cholecystectomy S/P bronchoscopy with biopsy Family History Mother No problems noted. Father No problems noted. Other Asthma Cancer Diabetes Heart disease Social History Smoking and tobacco status: current every day smoker cigarettes Packs smoked per day: 1 Years cigarettes smoked: 20 [ Other cigarette details: Hx of 1 PPD x 20 Years, started at age 27] Quit status (tobacco): considering quitting Second hand smoke exposure: Yes Smoking risk assessment/counseling performed?: No Alcohol intake: never Counseling given: No Substance/Drug Use: former Counseling given: No Lives independently: Yes Household members: spouse Marital status: Number of children: 3 Current occupational status: disabled Do you think of yourself as: Straight/Heterosexual Current gender identity: Female Physical Exam Const: COMMON NORMALS: no acute distress, patient oriented x3 and alert Neck/C-Spine: COMMON NORMALS: no JVD Resp: COMMON NORMALS: normal respiratory effort, No use of accessory muscles and clear to auscultation bilaterally AUSCULTATION: clear to auscultation bilaterally Cardio: COMMON NORMALS: no JVD, regular rate, regular rhythm, S1 normal heart sound present and S2 normal heart sound present RATE: regular rate RHYTHM: regular rhythm HEART SOUNDS: S1 normal heart sound present and S2 normal heart sound present GI: COMMON NORMALS: Soft to palpation INSPECTION: Yes normal to inspection AUSCULTATION: Yes normoactive bowel sounds PALPATION: Yes Soft to palpation, Yes Tenderness to palpation present (GI) Details: RLQ, Yes Guarding due to palpation present (GI) in the RLQ and No Rebound tenderness present : COMMON NORMALS: Yes no CVA tenderness BLADDER/KIDNEY EXAM: Yes no CVA tenderness Back/Pelvis: COMMON NORMALS: no CVA tenderness Neuro: COMMON NORMALS: patient oriented x3 SENSORIUM/ORIENTATION: Yes alert Course Vital Signs: Vital signs: Vital Signs Temperature 98.3 F 12/01/22 22:17 Pulse Rate 63 12/02/22 05:00 Respiratory Rate 16 12/02/22 05:00 Blood Pressure 116/66 12/02/22 05:00 Pulse Oximetry 96 12/02/22 05:00 Oxygen Delivery Me thod Room Air 12/02/22 05:00 MDM - Abdominal Pain Medical Decision Making Patient is in today for abdominal pain. She has been to the ER many times in the past for similar symptoms. She has a history of gastroparesis. Patient reports right lower quadrant abdominal pain starting yesterday she does not have her appendix. She denies any fever. Her white blood cell count is elevated to 14.7. UA dip shows leukocytes negative nitrates, negative hematuria, positive ketones. Awaiting CT scan abdomen. Care transferred to Dr. Fisher. Lab Data 12/01/22 23:46 12/01/22 23:46 Labs/Radiology: Laboratory Results WBC 14.7 10^3/uL (4.0-10.0) H 12/01/22 23:46 RBC 4.86 10^6/uL (4.1-5.3) 12/01/22 23:46 Hgb 15.4 g/dL (11.5-15.3) H 12/01/22 23:46 Hct 46.8 % (37.0-47.0) 12/01/22 23:46 MCV 96.3 fl (81-99) 12/01/22 23:46 MCH 31.7 pg (28.0-34.0) 12/01/22 23:46 MCHC 32.9 g/dL (30.0-36.0) 12/01/22 23:46 RDW 15.0 % (12.1-15.1) 12/01/22 23:46 Plt Count 220 10^3/cmm (130-400) 12/01/22 23:46 MPV 10.2 fL (7.4-10.4) 12/01/22 23:46 Neut % (Auto) 76.8 % 12/01/22 23:46 Lymph % (Auto) 16.7 % 12/01/22 23:46 [place] % (Auto) 4.4 % 12/01/22 23:46 Eos % (Auto) 1.0 % 12/01/22 23:46 Baso % (Auto) 0.6 % 12/01/22 23:46 Neut # (Auto) 11.28 10^3/uL (1.8-7.7) H 12/01/22 23:46 Lymph # (Auto) 2.5 10^3/uL (0.8-4.8) 12/01/22 23:46 [place] # (Auto) 0.7 10^3/uL (0.2-0.9) 12/01/22 23:46 Eos # (Auto) 0.1 10^3/uL (0.0-0.8) 12/01/22 23:46 Baso # (Auto) 0.1 10^3/uL (0.0-0.1) 12/01/22 23:46 Nucleated RBC % (auto) 0 % 12/01/22 23:46 Nucleated RBCs # 0.0 /100WBC 12/01/22 23:46 Sodium 137 mmol/L (136-145) 12/01/22 23:46 Potassium 3.9 mmol/L (3.5-5.1) 12/01/22 23:46 Chloride 103 mmol/L (98-107) 12/01/22 23:46 Carbon Dioxide 21 mmol/L (22-29) L 12/01/22 23:46 Anion Gap 16.9 (5-19) 12/01/22 23:46 BUN 12 mg/dL (6-20) 12/01/22 23:46 Creatinine 0.9 mg/dL (0.5-0.9) 12/01/22 23:46 GFR Calculation 65.0 mL/min (90-130) L 12/01/22 23:46 Glucose 92 mg/dL (65-115) 12/01/22 23:46 Calculated Osmolality 283 mOsm/kg (285-295) L 12/01/22 23:46 Calcium 9.5 mg/dL (8.5-10.5) 12/01/22 23:46 Total Bilirubin 0.3 mg/dL (0.15-1.2) 12/01/22 23:46 AST 9 U/L (0-32) 12/01/22 23:46 ALT 7 U/L (0-33) 12/01/22 23:46 Alkaline Phosphatase 131 U/L (35-105) H 12/01/22 23:46 Total Protein 6.8 g/dL (6.6-8.7) 12/01/22 23:46 Albumin 4.1 g/dL (3.5-5.2) 12/01/22 23:46 Globulin 2.7 g/dL (1.3-4.6) 12/01/22 23:46 Lipase 28 U/L (13-60) 12/01/22 23:46 Urine Color Yellow (Yellow) 12/02/22 01:50 Urine Appearance Sl hazy (CLEAR) A 12/02/22 01:50 Urine pH 5 (5-7) 12/02/22 01:50 Ur Specific [place] 1.025 (1.005-1.030) 12/02/22 01:50 Urine Protein Neg (Negative) 12/02/22 01:50 Urine Glucose (UA) Norm (Normal) 12/02/22 01:50 Urine Ketones 1+ (Negative) H 12/02/22 01:50 Urine Blood Neg (Negative) 12/02/22 01:50 Urine Nitrate Negative (Negative) 12/02/22 01:50 Urine Bilirubin 1+ (Negative) H 12/02/22 01:50 Urine Urobilinogen 1 mg/dL (Negative) H 12/02/22 01:50 Ur Leukocyte Esterase 1+ (Negative) H 12/02/22 01:50 Urine RBC 0-4 /hpf (0-2) H 12/02/22 01:50 Urine WBC 25-40 /hpf (0-5) H 12/02/22 01:50 Ur Squamous Epith Cells 40-55 /hpf (0-5) H 12/02/22 01:50 Amorphous Sediment Not Reportable 12/02/22 01:50 Urine Bacteria Trace /hpf (NONE) 12/02/22 01:50 Urine Mucus 2+ /hpf 12/02/22 01:50 Discharge Plan Discharge Patient Disposition: Home Clinical Impression: Gastroparesis Abdominal pain Qualifiers: Abdominal location: unspecified location Qualified Code(s): R10.9 - Unspecified abdominal pain Condition: Stable Prescriptions: No Action montelukast [Singulair] 10 mg tablet 10 mg PO DAILY 90 Days Qty: 90 0RF [id number]-Si-fvmx-minerals 18-0.4 mg tablet PO Ingrezza 80 mg capsule 80 mg PO .hs Qty: 30 1RF Rx Instructions: Take one capsule by mouth every morning citalopram 40 mg tablet 40 mg PO .q am Qty: 30 1RF Rx Instructions: Take one tablet by mouth every morning lamotrigine 200 mg tablet 200 mg PO DAILY@06 Qty: 30 1RF Rx Instructions: Take one tablet by mouth every morning mirtazapine [Remeron] 15 mg tablet 7.5 mg PO .qhs Qty: 15 1RF Rx Instructions: Take one-half tablet daily at bedtime nystatin 100,000 unit/gram powder 1 applic topical BID Qty: 30 0RF Rx Instructions: apply locally to B/L groin folds Afrin (oxymetazoline) 0.05 % mist 2 spray intranasal Q12H PRN (Reason: nasal congestion) 3 Days Qty: 15 0RF pantoprazole 40 mg tablet,delayed release (DR/EC) See Rx Instructions .ROUTE .COMPLEX Qty: 90 0RF Dose Instruction: TAKE 1 TABLET BY MOUTH DAILY AT 6 AM Rx Instructions: TAKE 1 TABLET BY MOUTH DAILY AT 6 AM albuterol sulfate 90 mcg/actuation HFA aerosol inhaler See Rx Instructions .ROUTE .COMPLEX Qty: 8.5 0RF Dose Instruction: INHALE 2 PUFFS BY MOUTH EVERY 6 HOURS NEEDED FOR SHORTNESS OF BREATH OR WHEEZING Rx Instructions: INHALE 2 PUFFS BY MOUTH EVERY 6 HOURS NEEDED FOR SHORTNESS OF BREATH OR WHEEZING acetaminophen 500 mg Tablet 1,000 mg PO Q6H PRN (Reason: Pain) Trelegy Ellipta 200-62.5-25 mcg blister with device 1 ea inhalation DAILY@06 Rx Instructions: STOP BREO AND IPRATROPIUM Compazine 25 mg suppository 25 mg [place] Q12H PRN (Reason: nausea and vomiting) Qty: 12 0RF ondansetron 4 mg tablet,disintegrating 4 mg PO Q8H PRN (Reason: nausea and vomiting) Qty: 25 0RF Reglan 10 mg tablet 10 mg PO Q6H PRN (Reason: nausea and vomiting) Qty: 20 0RF Discharge Orders: Discharge ED (Routine); Ordered 12/02/22 Ordered By: Colby Fisher Referrals: Dara Tavera, [employer] [Primary Care Provider] - 1 week Patient Instructions: Abdominal Pain (ED) Activity Restrictions/Additional Instructions: Please follow-up with your PCP in the next 1 week for your chronic gastroparesis abdominal pain. Coding Level of Care Code ED Commercial Estimator for Chg Fwd Documented by User: Colby Fisher DO 12/02/22 05:13 HPI - Abdominal Pain General: Chief Complaint: Abdominal Pain Stated Complaint: ABD PAIN Time Seen by Provider: 12/02/22 01:40 PFSH ED PFSH: Medical History Bladder stone Borderline personality disorder Cannabis dependence, uncomplicated Chronic anxiety Chronic back pain greater than 3 months duration Chronic gastritis without bleeding COPD (chronic obstructive pulmonary disease) Cystitis cystica Dysphagia Esophageal stricture Foreign body in bladder GERD without esophagitis Insomnia Neurogenic bladder Opioid dependence, uncomplicated Psychiatric care Restrictive lung disease Schizoaffective disorder, bipolar type Tardive dyskinesia Tobacco use disorder Urgency incontinence Surgical History H/O bladder repair surgery MESH REPAIR H/O colonoscopy with polypectomy H/O esophagogastroduodenoscopy (09/21/20) H/O: hysterectomy History of appendectomy History of breast biopsy History of foot surgery sx in 2009. Screws placed by Dr. Don. History of ureter stent Hx of cholecystectomy S/P bronchoscopy with biopsy Family History Mother No problems noted. Father No problems noted. Other Asthma Cancer Diabetes Heart disease Social History Smoking and tobacco status: current every day smoker cigarettes Packs smoked per day: 1 Years cigarettes smoked: 20 [ Other cigarette details: Hx of 1 PPD x 20 Years, started at age 27] Quit status (tobacco): considering quitting Second hand smoke exposure: Yes Smoking risk assessment/counseling performed?: No Alcohol intake: never Counseling given: No Substance/Drug Use: former Counseling given: No Lives independently: Yes Household members: spouse Marital status: Number of children: 3 Current occupational status: disabled Do you think of yourself as: Straight/Heterosexual Current gender identity: Female Course Vital Signs: Vital signs: Vital Signs Temperature 98.3 F 12/01/22 22:17 Pulse Rate 63 12/02/22 05:00 Respiratory Rate 16 12/02/22 05:00 Blood Pressure 116/66 12/02/22 05:00 Pulse Oximetry 96 12/02/22 05:00 Oxygen Delivery Me thod Room Air 12/02/22 05:00 MDM - Abdominal Pain Differential Diagnosis Likely abdominal pain; Unlikely acute appendicitis, calculus of kidney, constipation, diverticulitis, endometriosis, gastroenteritis, pancreatitis or small bowel obstruction Medical Records I reviewed the patient's medical records. Lab Data I reviewed the patient's lab results. 12/01/22 23:46 12/01/22 23:46 Labs/Radiology: Laboratory Results WBC 14.7 10^3/uL (4.0-10.0) H 12/01/22 23:46 RBC 4.86 10^6/uL (4.1-5.3) 12/01/22 23:46 Hgb 15.4 g/dL (11.5-15.3) H 12/01/22 23:46 Hct 46.8 % (37.0-47.0) 12/01/22 23:46 MCV 96.3 fl (81-99) 12/01/22 23:46 MCH 31.7 pg (28.0-34.0) 12/01/22 23:46 MCHC 32.9 g/dL (30.0-36.0) 12/01/22 23:46 RDW 15.0 % (12.1-15.1) 12/01/22 23:46 Plt Count 220 10^3/cmm (130-400) 12/01/22 23:46 MPV 10.2 fL (7.4-10.4) 12/01/22 23:46 Neut % (Auto) 76.8 % 12/01/22 23:46 Lymph % (Auto) 16.7 % 12/01/22 23:46 [place] % (Auto) 4.4 % 12/01/22 23:46 Eos % (Auto) 1.0 % 12/01/22 23:46 Baso % (Auto) 0.6 % 12/01/22 23:46 Neut # (Auto) 11.28 10^3/uL (1.8-7.7) H 12/01/22 23:46 Lymph # (Auto) 2.5 10^3/uL (0.8-4.8) 12/01/22 23:46 [place] # (Auto) 0.7 10^3/uL (0.2-0.9) 12/01/22 23:46 Eos # (Auto) 0.1 10^3/uL (0.0-0.8) 12/01/22 23:46 Baso # (Auto) 0.1 10^3/uL (0.0-0.1) 12/01/22 23:46 Nucleated RBC % (auto) 0 % 12/01/22 23:46 Nucleated RBCs # 0.0 /100WBC 12/01/22 23:46 Sodium 137 mmol/L (136-145) 12/01/22 23:46 Potassium 3.9 mmol/L (3.5-5.1) 12/01/22 23:46 Chloride 103 mmol/L (98-107) 12/01/22 23:46 Carbon Dioxide 21 mmol/L (22-29) L 12/01/22 23:46 Anion Gap 16.9 (5-19) 12/01/22 23:46 BUN 12 mg/dL (6-20) 12/01/22 23:46 Creatinine 0.9 mg/dL (0.5-0.9) 12/01/22 23:46 GFR Calculation 65.0 mL/min (90-130) L 12/01/22 23:46 Glucose 92 mg/dL (65-115) 12/01/22 23:46 Calculated Osmolality 283 mOsm/kg (285-295) L 12/01/22 23:46 Calcium 9.5 mg/dL (8.5-10.5) 12/01/22 23:46 Total Bilirubin 0.3 mg/dL (0.15-1.2) 12/01/22 23:46 AST 9 U/L (0-32) 12/01/22 23:46 ALT 7 U/L (0-33) 12/01/22 23:46 Alkaline Phosphatase 131 U/L (35-105) H 12/01/22 23:46 Total Protein 6.8 g/dL (6.6-8.7) 12/01/22 23:46 Albumin 4.1 g/dL (3.5-5.2) 12/01/22 23:46 Globulin 2.7 g/dL (1.3-4.6) 12/01/22 23:46 Lipase 28 U/L (13-60) 12/01/22 23:46 Urine Color Yellow (Yellow) 12/02/22 01:50 Urine Appearance Sl hazy (CLEAR) A 12/02/22 01:50 Urine pH 5 (5-7) 12/02/22 01:50 Ur Specific [place] 1.025 (1.005-1.030) 12/02/22 01:50 Urine Protein Neg (Negative) 12/02/22 01:50 Urine Glucose (UA) Norm (Normal) 12/02/22 01:50 Urine Ketones 1+ (Negative) H 12/02/22 01:50 Urine Blood Neg (Negative) 12/02/22 01:50 Urine Nitrate Negative (Negative) 12/02/22 01:50 Urine Bilirubin 1+ (Negative) H 12/02/22 01:50 Urine Urobilinogen 1 mg/dL (Negative) H 12/02/22 01:50 Ur Leukocyte Esterase 1+ (Negative) H 12/02/22 01:50 Urine RBC 0-4 /hpf (0-2) H 12/02/22 01:50 Urine WBC 25-40 /hpf (0-5) H 12/02/22 01:50 Ur Squamous Epith Cells 40-55 /hpf (0-5) H 12/02/22 01:50 Amorphous Sediment Not Reportable 12/02/22 01:50 Urine Bacteria Trace /hpf (NONE) 12/02/22 01:50 Urine Mucus 2+ /hpf 12/02/22 01:50 Discharge Plan Discharge Patient Disposition: Home Clinical Impression: Gastroparesis Abdominal pain Qualifiers: Abdominal location: unspecified location Qualified Code(s): R10.9 - Unspecified abdominal pain Condition: Stable Prescriptions: No Action montelukast [Singulair] 10 mg tablet 10 mg PO DAILY 90 Days Qty: 90 0RF [id number]-Bo-ppsk-minerals 18-0.4 mg tablet PO Ingrezza 80 mg capsule 80 mg PO .hs Qty: 30 1RF Rx Instructions: Take one capsule by mouth every morning citalopram 40 mg tablet 40 mg PO .q am Qty: 30 1RF Rx Instructions: Take one tablet by mouth every morning lamotrigine 200 mg tablet 200 mg PO DAILY@06 Qty: 30 1RF Rx Instructions: Take one tablet by mouth every morning mirtazapine [Remeron] 15 mg tablet 7.5 mg PO .qhs Qty: 15 1RF Rx Instructions: Take one-half tablet daily at bedtime nystatin 100,000 unit/gram powder 1 applic topical BID Qty: 30 0RF Rx Instructions: apply locally to B/L groin folds Afrin (oxymetazoline) 0.05 % mist 2 spray intranasal Q12H PRN (Reason: nasal congestion) 3 Days Qty: 15 0RF pantoprazole 40 mg tablet,delayed release (DR/EC) See Rx Instructions .ROUTE .COMPLEX Qty: 90 0RF Dose Instruction: TAKE 1 TABLET BY MOUTH DAILY AT 6 AM Rx Instructions: TAKE 1 TABLET BY MOUTH DAILY AT 6 AM albuterol sulfate 90 mcg/actuation HFA aerosol inhaler See Rx Instructions .ROUTE .COMPLEX Qty: 8.5 0RF Dose Instruction: INHALE 2 PUFFS BY MOUTH EVERY 6 HOURS NEEDED FOR SHORTNESS OF BREATH OR WHEEZING Rx Instructions: INHALE 2 PUFFS BY MOUTH EVERY 6 HOURS NEEDED FOR SHORTNESS OF BREATH OR WHEEZING acetaminophen 500 mg Tablet 1,000 mg PO Q6H PRN (Reason: Pain) Trelegy Ellipta 200-62.5-25 mcg blister with device 1 ea inhalation DAILY@06 Rx Instructions: STOP BREO AND IPRATROPIUM Compazine 25 mg suppository 25 mg [place] Q12H PRN (Reason: nausea and vomiting) Qty: 12 0RF ondansetron 4 mg tablet,disintegrating 4 mg PO Q8H PRN (Reason: nausea and vomiting) Qty: 25 0RF Reglan 10 mg tablet 10 mg PO Q6H PRN (Reason: nausea and vomiting) Qty: 20 0RF Discharge Orders: Discharge ED (Routine); Ordered 12/02/22 Ordered By: Colby Fisher Referrals: Dara Tavera, [employer] [Primary Care Provider] - 1 week Patient Instructions: Abdominal Pain (ED) Activity Restrictions/Additional Instructions: Please follow-up with your PCP in the next 1 week for your chronic gastroparesis abdominal pain. Coding Level of Care Code ED Commercial Estimator for Shellie Guallpa
[2022-12-02] MEDS: ondansetron 2 mg/ML SDV 2 mL 4 MG IVP (03:03)
[2022-12-02] MEDS: morphine 4 mg/mL SDV 1 mL IVP ×2 (03:05→04:32)
[2022-12-02] MEDS: sodium chloride 0.9% 1,000 ML 999 ML IV (03:31)
--- NOTE | 2022-12-02 04:16 | PC.NURSE ---
Patient states her pain is coming back and requesting more nausea medications. Provider made aware, new orders obtained.
[2022-12-02] MEDS: prochlorperazine 10 mg/2 mL Inj IVP (04:32)
== END 2022-12-02 05:22 | disposition home or self-care (01) ==
PROVIDERS: Emergency Provider Nurse Practitioner Family; PCP Registered Nurse
DX: K31.84 Gastroparesis (principal); F17.210 Nicotine dependence, cigarettes, uncomplicated; J44.9 Chronic obstructive pulmonary disease, unspecified
CPT/HCPCS: 74177; 80053; 81001; 83690; 85025; 96361; 96374; 96375; 96376; 99285; J0780; J2270; J2405; J7030; Q9967

== ENCOUNTER 2022-12-04 21:31 | Emergency (ER) | payer MEDICARE, MEDICAID, SELFPAY ==
[2022-12-04 21:32] VITALS: BMI 30.2
[2022-12-04 21:34] VITALS: BP 132/78; PULSE 76; RESP 16; TEMP 37.1; O2SAT 98
[2022-12-04 21:43] VITALS: O2SAT 97
[2022-12-04 21:51] VITALS: BP 135/79; PULSE 87; RESP 17
[2022-12-04 22:15] LABS: Basophils # 0.1 10^3/uL (0.0-0.1); Basophils % 0.9 %; Eosinophils # 0.2 10^3/uL (0.0-0.8); Eosinophils % 2.3 %; Hemoglobin 14.5 g/dL (11.5-15.3); Lymphocytes # 2.4 10^3/uL (0.8-4.8); Lymphocytes % 30.8 %; Mean Corpuscular HGB Conc 32.2 g/dL (30.0-36.0); Mean Corpuscular Hemoglobin 30.5 pg (28.0-34.0); Mean Corpuscular Volume 94.7 fl (81-99); Mean Platelet Volume 10.3 fL (7.4-10.4); Monocytes # 0.5 10^3/uL (0.2-0.9); Monocytes % 6.3 %; Neutrophils # 4.62 10^3/uL (1.8-7.7); Neutrophils % 59.4 %; Nucleated Red Blood Cells % 0 %; Platelet Count 226 10^3/cmm (130-400); Red Blood Count 4.75 10^6/uL (4.1-5.3); Red Cell Distribution Width 14.7 % (12.1-15.1); White Blood Count 7.8 10^3/uL (4.0-10.0)
[2022-12-04] MEDS: ondansetron 2 mg/ML SDV 2 mL 4 MG IVP (22:16)
[2022-12-04 22:21] VITALS: RESP 16
[2022-12-04] MEDS: HYDROmorphone 1 mg/mL INJ 1 mL 0.5 MG IVP (22:21)
[2022-12-04] MEDS: pantoprazole 40 mg SDV IVP (22:21)
[2022-12-04] MEDS: sodium chloride 0.9% 1,000 ML 999 ML IV (22:22)
--- NOTE | 2022-12-04 22:26 | ED_ITS ---
HPI - Abdominal Pain General: Chief Complaint: Abdominal Pain Stated Complaint: abd pain Time Seen by Provider: 12/04/22 21:55 History of Present Illness: 57-year-old female with multiple ER visit for similar complaint presented emergency room today with abdominal pain, nausea and vomiting due to gastroparesis. She was seen and evaluated 2 days ago and had extensive work-up done including CAT scan. Patient feels multiple episode of vomiting today denies any diarrhea, bloody stool or dark stool. Describes abdominal pain as cramping sensation with severity of 5 out of 10 mostly diffusely. [place] any dysuria, hematuria urine frequency. Fever or chills. No known sick contacts or foreign travel. Associated Symptoms: Reports coffee ground emesis, nausea and vomiting; Denies belching, bloating, change in bowel habits, constipation, GI cramping, diarrhea, heartburn, hematochezia and melena Review of Systems General: Reports: 10 or more systems reviewed and unremarkable except in HPI and below GI: Reports: abdominal pain, nausea, vomiting and coffee ground emesis; Denies: dysphagia, heartburn, early satiety, diarrhea, constipation, bloating, GI cramping, belching, change in bowel habits, pain on defecation, rectal sw elling, hematochezia, melena or mucus in stool PFSH ED PFSH: Medical History Bladder stone Borderline personality disorder Cannabis dependence, uncomplicated Chronic anxiety Chronic back pain greater than 3 months duration Chronic gastritis without bleeding COPD (chronic obstructive pulmonary disease) Cystitis cystica Dysphagia Esophageal stricture Foreign body in bladder GERD without esophagitis Insomnia Neurogenic bladder Opioid dependence, uncomplicated Psychiatric care Restrictive lung disease Schizoaffective disorder, bipolar type Tardive dyskinesia Tobacco use disorder Urgency incontinence Surgical History H/O bladder repair surgery MESH REPAIR H/O colonoscopy with polypectomy H/O esophagogastroduodenoscopy (09/21/20) H/O: hysterectomy History of appendectomy History of breast biopsy History of foot surgery sx in 2009. Screws placed by Dr. oDn. History of ureter stent Hx of cholecystectomy S/P bronchoscopy with biopsy Family History Mother No problems noted. Father No problems noted. Other Asthma Cancer Diabetes Heart disease Social History Smoking and tobacco status: current every day smoker cigarettes Packs smoked pe r day: 1 Years cigarettes smoked: 20 [ Other cigarette details: Hx of 1 PPD x 20 Years, started at age 27] Quit status (tobacco): considering quitting Second hand smoke exposure: Yes Smoking risk assessment/counseling performed?: No Alcohol intake: never Counseling given: No Substance/Drug Use: former Counseling given: No Lives independently: Yes Household members: spouse Marital status: Number of children: 3 Current occupational status: disabled Do you think of yourself as: Straight/Heterosexual Current gender identity: Female Physical Exam Const: COMMON NORMALS: no acute distress, average body habitus, patient oriented x3, no limitations, healthy appearing, alert and well nourished Neck/C-Spine: COMMON NORMALS: no JVD Chest: COMMONS NORMALS: normal inspection of the chest, normal palpation of entire chest wall, normal inspection of the breasts and normal palpation of the breasts Breast/axilla inspection: Yes normal inspection of the breasts BREAST/AXILLA PALPATION: Yes normal palpation of the breasts Resp: COMMON NORMALS: normal respiratory effort, No retractions, No use of accessory muscles, clear to auscultation bilaterally and percussion normal AUSCULTATION: clear to auscultation bilaterally PERCUSSION: percussion normal Cardio: COMMON NORMALS: no JVD, regular rate, regular rhythm, S1 normal heart sound present, S2 normal heart sound present, No gallops present (Cardio), No clicks present (Cardio), No murmurs present (Cardio), No rub (Cardio) and Peripheral pulses 2+ throughout RATE: regular rate RHYTHM: regular rhythm HEART SOUNDS: S1 normal heart sound present and S2 normal heart sound present PERIPHERAL PULSES: Peripheral pulses 2+ throughout GI: COMMON NORMALS: Soft to palpation INSPECTION: No abdominal wall ecchymosis, No Abdominal wall edema, No Anasarca, No abdominal distension and No incision PALPATION: Yes Soft to palpation, Yes Tenderness to palpation present (GI), No Guarding due to palpation present (GI), No Hepatomegaly present, No Splenomegaly present, No Hernia present and No Pulsatile mass pres ent : EXTERNAL FEMALE EXAM: No Hernia present Extremity: COMMON NORMALS: normal to inspection, full ROM, capillary refill normal, no joint enlargement, no clubbing, cyanosis or edema, no calf tenderness and no pedal edema Neuro: COMMON NORMALS: patient oriented x3 SENSORIUM/ORIENTATION: Yes alert Course ED course: Plan was to obtain CT scan for further evaluation but patient graciously declined at this time because she had one done few days ago. Reevaluation(s): Reevaluation #1: Per assessment patient said that she is feeling a little better and requesting for more pain medication Vital Signs: Vital signs: Vital Signs Temperature 98.8 F 12/04/22 21:34 Pulse Rate 65 12/04/22 22:38 Respiratory Rate 16 12/04/22 22:38 Blood Pressure 122/74 12/04/22 22:38 Pulse Oximetry 95 12/04/22 22:38 Oxygen Delivery Me thod Room Air 12/04/22 22:38 MDM - Abdominal Pain Medical Decision Making Personally reviewed the past medical records. Patient was made come to emergency room and had lab work done. Patient was given IV fluid, Protonix, Zofran and pain medication. I discussed the lab findings with patient. Patient was reassured and close follow-up PCP recommended. Medical Records I reviewed the patient's medical records. Lab Data I reviewed the patient's lab results. 12/04/22 21:40 12/04/22 21:40 Labs/Radiology: Laboratory Results WBC 7.8 10^3/uL (4.0-10.0) 12/04/22 21:40 RBC 4.75 10^6/uL (4.1-5.3) 12/04/22 21:40 Hgb 14.5 g/dL (11.5-15.3) 12/04/22 21:40 Hct 45.0 % (37.0-47.0) 12/04/22 21:40 MCV 94.7 fl (81-99) 12/04/22 21:40 MCH 30.5 pg (28.0-34.0) 12/04/22 21:40 MCHC 32.2 g/dL (30.0-36.0) 12/04/22 21:40 RDW 14.7 % (12.1-15.1) 12/04/22 21:40 Plt Count 226 10^3/cmm (130-400) 12/04/22 21:40 MPV 10.3 fL (7.4-10.4) 12/04/22 21:40 Neut % (Auto) 59.4 % 12/04/22 21:40 Lymph % (Auto) 30.8 % 12/04/22 21:40 Buchanan % (Auto) 6.3 % 12/04/22 21:40 Eos % (Auto) 2.3 % 12/04/22 21:40 Baso % (Auto) 0.9 % 12/04/22 21:40 Neut # (Auto) 4.62 10^3/uL (1.8-7.7) 12/04/22 21:40 Lymph # (Auto) 2.4 10^3/uL (0.8-4.8) 12/04/22 21:40 Buchanan # (Auto) 0.5 10^3/uL (0.2-0.9) 12/04/22 21:40 Eos # (Auto) 0.2 10^3/uL (0.0-0.8) 12/04/22 21:40 Baso # (Auto) 0.1 10^3/uL (0.0-0.1) 12/04/22 21:40 Nucleated RBC % (auto) 0 % 12/04/22 21:40 Nucleated RBCs # 0.0 /100WBC 12/04/22 21:40 Sodium 140 mmol/L (136-145) 12/04/22 21:40 Potassium 4.0 mmol/L (3.5-5.1) 12/04/22 21:40 Chloride 107 mmol/L (98-107) 12/04/22 21:40 Carbon Dioxide 23 mmol/L (22-29) 12/04/22 21:40 Anion Gap 14.0 (5-19) 12/04/22 21:40 BUN 14 mg/dL (6-20) 12/04/22 21:40 Creatinine 1.1 mg/dL (0.5-0.9) H 12/04/22 21:40 GFR Calculation 51.6 mL/min (90-130) L 12/04/22 21:40 Glucose 88 mg/dL (65-115) 12/04/22 21:40 Calculated Osmolality 290 mOsm/kg (285-295) 12/04/22 21:40 Calcium 9.1 mg/dL (8.5-10.5) 12/04/22 21:40 Total Bilirubin 0.2 mg/dL (0.15-1.2) 12/04/22 21:40 AST 10 U/L (0-32) 12/04/22 21:40 ALT 6 U/L (0-33) 12/04/22 21:40 Alkaline Phosphatase 115 U/L (35-105) H 12/04/22 21:40 Total Protein 6.1 g/dL (6.6-8.7) L 12/04/22 21:40 Albumin 3.9 g/dL (3.5-5.2) 12/04/22 21:40 Globulin 2.2 g/dL (1.3-4.6) 12/04/22 21:40 Discharge Plan Discharge Patient Disposition: Home Clinical Impression: Abdominal pain, Cannabis abuse, Chronic nausea, Gastroparesis Condition: Stable Prescriptions: New zofran 1 tab PO 3XD PRN (Reason: nausea) Qty: 20 0RF No Action montelukast [Singulair] 10 mg tablet 10 mg PO DAILY 90 Days Qty: 90 0RF abwtbcdfbmrp-Yw-jqta-minerals 18-0.4 mg tablet PO Ingrezza 80 mg capsule 80 mg PO .hs Qty: 30 1RF Rx Instructions: Take one capsule by mouth every morning citalopram 40 mg tablet 40 mg PO .q am Qty: 30 1RF Rx Instructions: Take one tablet by mouth every morning lamotrigine 200 mg tablet 200 mg PO DAILY@06 Qty: 30 1RF Rx Instructions: Take one tablet by mouth every morning mirtazapine [Remeron] 15 mg tablet 7.5 mg PO .qhs Qty: 15 1RF Rx Instructions: Take one-half tablet daily at bedtime nystatin 100,000 unit/gram powder 1 applic topical BID Qty: 30 0RF Rx Instructions: apply locally to B/L groin folds Afrin (oxymetazoline) 0.05 % mist 2 spray intranasal Q12H PRN (Reason: nasal congestion) 3 Days Qty: 15 0RF pantoprazole 40 mg tablet,delayed release (DR/EC) See Rx Instructions .ROUTE .COMPLEX Qty: 90 0RF Dose Instruction: TAKE 1 TABLET BY MOUTH DAILY AT 6 AM Rx Instructions: TAKE 1 TABLET BY MOUTH DAILY AT 6 AM albuterol sulfate 90 mcg/actuation HFA aerosol inhaler See Rx Instructions .ROUTE .COMPLEX Qty: 8.5 0RF Dose Instruction: INHALE 2 PUFFS BY MOUTH EVERY 6 HOURS NEEDED FOR SHORTNESS OF BREATH OR WHEEZING Rx Instructions: INHALE 2 PUFFS BY MOUTH EVERY 6 HOURS NEEDED FOR SHORTNESS OF BREATH OR WHEEZING acetaminophen 500 mg Tablet 1,000 mg PO Q6H PRN (Reason: Pain) Trelegy Ellipta 200-62.5-25 mcg blister with device 1 ea inhalation DAILY@06 Rx Instructions: STOP BREO AND IPRATROPIUM Compazine 25 mg suppository 25 mg [place] Q12H PRN (Reason: nausea and vomiting) Qty: 12 0RF ondansetron 4 mg tablet,disintegrating 4 mg PO Q8H PRN (Reason: nausea and vomiting) Qty: 25 0RF Reglan 10 mg tablet 10 mg PO Q6H PRN (Reason: nausea and vomiting) Qty: 20 0RF Discharge Orders: Discharge ED (Routine); Ordered 12/04/22 Ordered By: Kerri Alvarez Referrals: Dara Tavera, PUSHER OPERATOR [Primary Care Provider] - Patient Instructions: Abdominal Pain (ED), Opioid Safety, Pain Management Coding Level of Care Code ED Enterprise Integration Architect for Shellie Guallpa
[2022-12-04 22:36] LABS: Alanine Aminotransferase 6 U/L (0-33); Albumin Level 3.9 g/dL (3.5-5.2); Alkaline Phosphatase 115 U/L (35-105); Aspartate Amino Transferase 10 U/L (0-32); Blood Urea Nitrogen 14 mg/dL (6-20); Calcium 9.1 mg/dL (8.5-10.5); Carbon Dioxide 23 mmol/L (22-29); Chloride 107 mmol/L (98-107); Globulin 2.2 g/dL (1.3-4.6); Glomerular Filtration Rate 51.6 mL/min (90-130); Glucose 88 mg/dL (65-115); Osmolality Calculated 290 mOsm/kg (285-295); Sodium 140 mmol/L (136-145); Total Bilirubin 0.2 mg/dL (0.15-1.2); Total Protein 6.1 g/dL (6.6-8.7)
[2022-12-04 22:38] VITALS: BP 122/74; PULSE 65; RESP 16; O2SAT 95
== END 2022-12-04 23:07 | disposition home or self-care (01) ==
PROVIDERS: Emergency Provider Family Medicine; PCP Registered Nurse
DX: K31.84 Gastroparesis (principal); R11.0 Nausea; R10.9 Unspecified abdominal pain; F12.10 Cannabis abuse, uncomplicated; F17.210 Nicotine dependence, cigarettes, uncomplicated
CPT/HCPCS: 80053; 85025; 96374; 96375; 99284; C9113; J1170; J2405; J7030

== ENCOUNTER 2022-12-05 01:28 | Emergency (ER) | payer MEDICARE, MEDICAID, SELFPAY ==
[2022-12-05 01:29] VITALS: BMI 41.5
[2022-12-05 01:39] VITALS: BP 140/87; O2SAT 98
[2022-12-05 02:00] VITALS: BP 107/69
--- NOTE | 2022-12-05 02:31 | XRR_ITS ---
PROCEDURE INFORMATION: Exam: XR Abdomen Exam date and time: 12/05/2022 2:39 AM Age: 57 years old Clinical indication: Abdominal pain; Generalized; Prior surgery; Surgery date: 6+ months; Surgery type: Bladder mesh, appy, shawanda TECHNIQUE: Imaging protocol: Radiologic exam of the abdomen. Views: Frontal supine view of the abdomen. 1 View. COMPARISON: CT abdomen pelvis w con* [id number] 12/02/2022 2:25 AM FINDINGS: Gastrointestinal tract: No small bowel dilation or free air identified. The colon is quite fecal filled. Organs: Absent gallbladder. Bones/joints: Unremarkable. Soft tissues: Previous left inguinal hernia repair. XR/XR KUB portable [id number] IMPRESSION: 1. No small bowel obstruction or free air. 2. Moderate constipation is possible, in the appropriate clinical setting.
[2022-12-05 02:37] VITALS: RESP 18
[2022-12-05] MEDS: HYDROmorphone 1 mg/mL INJ 1 mL 2 MG IM (02:37)
[2022-12-05] MEDS: prochlorperazine 10 mg/2 mL Inj IM (02:38)
--- NOTE | 2022-12-05 02:38 | ED_ITS ---
HPI - Abdominal Pain General: Chief Complaint: Abdominal Pain Stated Complaint: ABD Pain Time Seen by Provider: 12/05/22 01:36 History of Present Illness: 57-year-old female who is on her fifth visit in the last month, and second visit in the last 8 hours to our emergency department alone for complaint of chronic belly pain. She notes that the pain is similar to her prior episodes, but worse than it has been in the long time . She was seen earlier in the evening, given pain medication and IV fluid as well as antiemetics. She was found to have normal laboratory. Urinalysis was not completed. She was discharged. She waited in the waiting room for her ride for a couple of hours before checking back in with continued belly pain. MD elicited complaint: abdominal pain Pertinent past history: other Onset (ago): hour(s) Pain Consistency: constant Location: Diffuse Severity: severe Quality: aching Radiation: none Migration to: no migration Exacerbating factors: vomiting and movement Relieving factors: nothing Associated Symptoms: Reports bloating, coffee ground emesis (by her report), nausea, poor appetite and vomiting; Denies chills, constipation, diarrhea, fever(s), heartburn, hematochezia and hematuria Review of Systems Const: Denies: fever(s) or chills Eyes: Denies: change in vision ENMT: Denies: throat pain or uvular edema Card: Denies: chest pain or palpitations Resp: Reports: non-productive cough (chronic) and wheezing (chronic); Denies: dyspnea or productive cough GI: Reports: nausea, vomiting, coffee ground emesis (by her report) and bloating; Denies: heartburn, diarrhea, constipation or hematochezia : Denies: hematuria PFSH ED PFSH: Medical History Bladder stone Borderline personality disorder Cannabis dependence, uncomplicated Chronic anxiety Chronic back pain greater than 3 months duration Chronic gastritis without bleeding COPD (chronic obstructive pulmonary disease) Cystitis cystica Dysphagia Esophageal stricture Foreign body in bladder GERD without esophagitis Insomnia Neurogenic bladder Opioid dependence, uncomplicated Psychiatric care Restrictive lung disease Schizoaffective disorder, bipolar type Tardive dyskinesia Tobacco use disorder Urgency incontinence Surgical History H/O bladder repair surgery MESH REPAIR H/O colonoscopy with polypectomy H/O esophagogastroduodenoscopy (09/21/20) H/O: hysterectomy History of appendectomy History of breast biopsy History of foot surgery sx in 2009. Screws placed by Dr. Don. History of ureter stent Hx of cholecystectomy S/P bronchoscopy with biopsy Family History Mother No problems noted. Father No problems noted. Other Asthma Cancer Diabetes Heart disease Social History Smoking and tobacco status: current every day smoker cigarettes Packs smoked per day: 1 Years cigarettes smoked: 20 [ Other cigarette details: Hx of 1 PPD x 20 Years, started at age 27] Quit status (tobacco): considering quitting Second hand smoke exposure: Yes Smoking risk assessment/counseling performed?: No Alcohol intake: never Counseling given: No Substance/Drug Use: former Counseling given: No Lives independently: Yes Household members: spouse Marital status: Number of children: 3 Current occupational status: disabled Do you think of yourself as: Straight/Heterosexual Current gender identity: Female Physical Exam Const: COMMON NORMALS: no acute distress GENERAL APPEARANCE: cooperative; not ill appearing and not frail appearing HENMT: COMMON NORMALS: normocephalic, atraumatic and Normal external nose present HEAD & SCALP: normocephalic and atraumatic FACE & SINUS: normal facial exam and face symmetric NOSE: Normal external nose present THROAT: no uvular edema Eye: COMMON NORMALS: Equal, round and reactive pupils present and EOMs intact bilaterally PUPIL: Yes Equal, round and reactive pupils present Neck/C-Spine: GENERAL: Yes trachea midline Chest: CHEST: Yes Symmetrical chest wall rise Resp: COMMON NORMALS: normal respiratory effort, No retractions, No use of accessory muscles and clear to auscultation bilaterally AUSCULTATION: clear to auscultation bilaterally Cardio: COMMON NORMALS: regular rate and regular rhythm RATE: regular rate RHYTHM: regular rhythm GI: COMMON NORMALS: Normal to inspection, nondistended, normoactive bowel sounds present PALPATION: Yes Tenderness to palpation present (GI) (diffuse, out of proportion to exam) Extremity: COMMON NORMALS: no pedal edema Neuro: JEANINE COMA SCALE: document GCS findings Weston coma scale eye opening: Spontaneous Jeanine coma scale verbal response: Orientated Jeanine coma scale motor response: Obey commands Jeanine coma scale total score: 15 SENSORY EXAM: Yes extremities (intact) Psych: COMMON NORMALS: speech normal SPEECH: Yes normal speech Skin: COMMON NORMALS: no rashes or lesions noted GENERAL SKIN EXAM: no rashes or lesions noted Course Vital Signs: Vital signs: Vital Signs Respiratory Rate 18 12/05/22 02:37 Blood Pressure 107/69 12/05/22 02:00 Pulse Oximetry 98 12/05/22 01:39 Oxygen Delivery Me thod Room Air 12/05/22 01:39 MDM - Abdominal Pain Medical Decision Making Patient's serum laboratory work-up was normal a few hours ago. There have been no change in her symptoms. Urinalysis is pending. KUB is scheduled. KUB does not show obstruction. It does show an increase stool load. She is asking for suppositories of Compazine. We will prescribe these. She will also need a bowel prep for constipation. She will be prescribed a single dose laxative and dispensed for home Lab Data Labs/Radiology: Laboratory Results Urine Color Colorless (Yellow) 12/05/22 02:46 Urine Appearance Clear (CLEAR) 12/05/22 02:46 Urine pH 5 (5-7) 12/05/22 02:46 Ur Specific Noble 1.010 (1.005-1.030) 12/05/22 02:46 Urine Protein Neg (Negative) 12/05/22 02:46 Urine Glucose (UA) Norm (Normal) 12/05/22 02:46 Urine Ketones Negative (Negative) 12/05/22 02:46 Urine Blood Neg (Negative) 12/05/22 02:46 Urine Nitrate Negative (Negative) 12/05/22 02:46 Urine Bilirubin Neg (Negative) 12/05/22 02:46 Urine Urobilinogen Norm mg/dL (Negative) 12/05/22 02:46 Ur Leukocyte Esterase Negative (Negative) 12/05/22 02:46 Discharge Plan Discharge Patient Disposition: Home Clinical Impression: Gastroparesis, Abdominal pain, Constipation Condition: Stable Prescriptions: New Compazine 25 mg suppository 25 mg GA BID PRN (Reason: nausea and vomiting) Qty: 20 0RF No Action montelukast [Singulair] 10 mg tablet 10 mg PO DAILY 90 Days Qty: 90 0RF druobpgnbpsz-Xs-hbzw-minerals 18-0.4 mg tablet PO Ingrezza 80 mg capsule 80 mg PO .hs Qty: 30 1RF Rx Instructions: Take one capsule by mouth every morning citalopram 40 mg tablet 40 mg PO .q am Qty: 30 1RF Rx Instructions: Take one tablet by mouth every morning lamotrigine 200 mg tablet 200 mg PO DAILY@06 Qty: 30 1RF Rx Instructions: Take one tablet by mouth every morning mirtazapine [Remeron] 15 mg tablet 7.5 mg PO .qhs Qty: 15 1RF Rx Instructions: Take one-half tablet daily at bedtime nystatin 100,000 unit/gram powder 1 applic topical BID Qty: 30 0RF Rx Instructions: apply locally to B/L groin folds Afrin (oxymetazoline) 0.05 % mist 2 spray intranasal Q12H PRN (Reason: nasal congestion) 3 Days Qty: 15 0RF pantoprazole 40 mg tablet,delayed release (DR/EC) See Rx Instructions .ROUTE .COMPLEX Qty: 90 0RF Dose Instruction: TAKE 1 TABLET BY MOUTH DAILY AT 6 AM Rx Instructions: TAKE 1 TABLET BY MOUTH DAILY AT 6 AM albuterol sulfate 90 mcg/actuation HFA aerosol inhaler See Rx Instructions .ROUTE .COMPLEX Qty: 8.5 0RF Dose Instruction: INHALE 2 PUFFS BY MOUTH EVERY 6 HOURS NEEDED FOR SHORTNESS OF BREATH OR WHEEZING Rx Instructions: INHALE 2 PUFFS BY MOUTH EVERY 6 HOURS NEEDED FOR SHORTNESS OF BREATH OR WHEEZING acetaminophen 500 mg Tablet 1,000 mg PO Q6H PRN (Reason: Pain) Trelegy Ellipta 200-62.5-25 mcg blister with device 1 ea inhalation DAILY@06 Rx Instructions: STOP BREO AND IPRATROPIUM Compazine 25 mg suppository 25 mg [place] Q12H PRN (Reason: nausea and vomiting) Qty: 12 0RF ondansetron 4 mg tablet,disintegrating 4 mg PO Q8H PRN (Reason: nausea and vomiting) Qty: 25 0RF Reglan 10 mg tablet 10 mg PO Q6H PRN (Reason: nausea and vomiting) Qty: 20 0RF zofran 1 tab PO 3XD PRN (Reason: nausea) Qty: 20 0RF Discharge Orders: Discharge ED (Routine); Ordered 12/05/22 Ordered By: Chivo Deleon Referrals: Dara Tavera, PELT GRADER [Primary Care Provider] - 1-3 days Patient Instructions: Constipation (ED), Abdominal Pain (ED), Gastroparesis (ED), Opioid Safety, Pain Management Activity Restrictions/Additional Instructions: Take medication dispensed to you later this morning at home. Stay near the bathroom, as it will relieve constipation. Follow-up with your doctor this week Coding Level of Care Code ED Internal Communications Writer for Shellie Guallpa
[2022-12-05 02:57] LABS: Add Urine Microscopic? NO; Charge for UA Resulting for Rev
[2022-12-05 02:59] LABS: Bilirubin Urine Neg (Negative); Blood Urine Neg (Negative); Glucose Urine UA Norm (Normal); Ketones Urine Negative (Negative); Leukocyte Esterase Urine Negative (Negative); Nitrate Urine Negative (Negative); Protein Urine Neg (Negative); Urine Appearance Clear (CLEAR); Urine Color Colorless (Yellow); Urobilinogen Urine Norm (Negative); pH Urine 5 (5-7)
[2022-12-05] MEDS: magnesium hydroxide 30 mL UDC PO (03:44)
[2022-12-05] MEDS: lactulose oral liq 20 gm/30 mL UDC 30 GM PO (03:44)
[2022-12-05] MEDS: mineral oil 30 mL UDC PO (03:45)
--- NOTE | 2022-12-05 03:45 | PC.NURSE ---
lactulose, mineral oil, and milk of magnesia sent home with patient per verbal order by Dr. Deleon. Patient instructed on administration process.
== END 2022-12-05 03:46 | disposition home or self-care (01) ==
PROVIDERS: Emergency Provider Emergency Medicine; PCP Registered Nurse
DX: K31.84 Gastroparesis (principal); R10.9 Unspecified abdominal pain; K59.00 Constipation, unspecified
CPT/HCPCS: 74018; 81003; 96372; 99284; J0780; J1170

== ENCOUNTER 2022-12-11 22:55 | Emergency (ER) | payer MEDICARE, MEDICAID, SELFPAY ==
[2022-12-11 22:56] VITALS: BP 111/45; PULSE 78; RESP 20; TEMP 36.8; O2SAT 96; BMI 29.9
[2022-12-11 23:37] VITALS: BP 108/44; PULSE 74; RESP 18; O2SAT 96
--- NOTE | 2022-12-12 00:06 | CTR_ITS ---
PROCEDURE INFORMATION: Exam: CT Head Without Contrast Exam date and time: 12/12/2022 12:25 AM Age: 57 years old Clinical indication: Pain; Headache; Patient HX: C/O GALLEGOS. ; Additional info: Headache, worst of life, 03/28 TECHNIQUE: Imaging protocol: Computed tomography of the head without contrast. Radiation optimization: All CT scans at this facility use at least one of these dose optimization techniques: automated exposure control; mA and/or kV adjustment per patient size (includes targeted exams where dose is matched to clinical indication); or iterative reconstruction. REPORTING DATA: Count of CT and Cardiac NM exams in prior 12 months: This patient has received 9 known [address]s and 0 known cardiac nuclear medicine studies in the 12 months prior to the current study. COMPARISON: CT head wo con* [id number] 11/10/2022 8:32 PM RADIATION DOSE METRICS: Total DLP (mGy-cm): 1023.28 FINDINGS: Brain: There is no evidence of acute parenchymal hemorrhage, extra-axial collection, or acute infarction. There is no mass effect, midline shift, or downward herniation. Cerebral ventricles: No ventriculomegaly. Paranasal sinuses: There is near complete opacification of the ethmoid air cells which has worsened since the previous exam. There is also increased mucosal thickening seen in the frontal sinuses and sphenoid sinuses. Mastoid air cells: Visualized mastoid air cells are well aerated. Bones/joints: Unremarkable. No acute fracture. Soft tissues: Unremarkable. CT/CT head wo con* [id number] IMPRESSION: 1. No evidence of acute intracranial process. 2. Worsening sinus disease.
[2022-12-12 00:37] LABS: Basophils # 0.1 10^3/uL (0.0-0.1); Basophils % 0.9 %; Eosinophils # 0.4 10^3/uL (0.0-0.8); Eosinophils % 3.5 %; Hematocrit 42.7 % (37.0-47.0); Hemoglobin 13.9 g/dL (11.5-15.3); Lymphocytes % 19.6 %; Mean Corpuscular HGB Conc 32.6 g/dL (30.0-36.0); Mean Corpuscular Hemoglobin 30.5 pg (28.0-34.0); Mean Corpuscular Volume 93.6 fl (81-99); Mean Platelet Volume 10.1 fL (7.4-10.4); Monocytes # 0.6 10^3/uL (0.2-0.9); Monocytes % 5.5 %; Neutrophils # 7.25 10^3/uL (1.8-7.7); Neutrophils % 70.2 %; Nucleated Red Blood Cells % 0 %; Platelet Count 222 10^3/cmm (130-400); Red Blood Count 4.56 10^6/uL (4.1-5.3); Red Cell Distribution Width 15.6 % (12.1-15.1); White Blood Count 10.3 10^3/uL (4.0-10.0)
[2022-12-12] MEDS: sodium chloride 0.9% 1,000 ML 999 ML IV (00:42)
[2022-12-12] MEDS: prochlorperazine 10 mg/2 mL Inj IVP (00:42)
[2022-12-12 00:46] LABS: Alanine Aminotransferase 9 U/L (0-33); Albumin Level 3.8 g/dL (3.5-5.2); Alkaline Phosphatase 120 U/L (35-105); Anion Gap 13.8 (5-19); Aspartate Amino Transferase 11 U/L (0-32); Blood Urea Nitrogen 12 mg/dL (6-20); Calcium 8.9 mg/dL (8.5-10.5); Carbon Dioxide 22 mmol/L (22-29); Chloride 105 mmol/L (98-107); Globulin 2.4 g/dL (1.3-4.6); Glomerular Filtration Rate 74.5 mL/min (90-130); Glucose 96 mg/dL (65-115); Osmolality Calculated 284 mOsm/kg (285-295); Potassium 3.8 mmol/L (3.5-5.1); Sodium 137 mmol/L (136-145); Total Bilirubin 0.3 mg/dL (0.15-1.2); Total Protein 6.2 g/dL (6.6-8.7)
[2022-12-12 00:54] LABS: Add Urine Microscopic? NO; Charge for UA Resulting for Rev
[2022-12-12 00:57] LABS: Bilirubin Urine Neg (Negative); Blood Urine Neg (Negative); Glucose Urine UA Norm (Normal); Ketones Urine Negative (Negative); Leukocyte Esterase Urine Negative (Negative); Nitrate Urine Negative (Negative); Protein Urine Neg (Negative); Urine Appearance Clear (CLEAR); Urine Color Yellow (Yellow); Urobilinogen Urine Norm (Negative); pH Urine 6 (5-7)
[2022-12-12 01:14] VITALS: RESP 18
[2022-12-12] MEDS: morphine 4 mg/mL SDV 1 mL IVP (01:14)
[2022-12-12 01:23] VITALS: BP 108/71; PULSE 78; RESP 18; O2SAT 98
--- NOTE | 2022-12-12 02:22 | ED_ITS ---
HPI - Headache General: Chief Complaint: Headache Stated Complaint: headache Time Seen by Provider: 12/11/22 23:07 Source: patient Mode of arrival: EMS Limitations: no limitations History of Present Illness: Patient presents emergency department today for evaluation treatment of a couple of days of frontally and top of head headache. Patient reports a previous history of migraines but states this is not like her typical migraine headache. She denies any aura. She does have nausea and vomiting but no diarrhea. She states her stomach feels queasy. She reports some nasal congestion but reports she is unable to take sinus and congestion medicine due to her tardive dyskinesia. She also states she has been taking Zofran and Compazine without improvement of her nausea. She denies chest pains or shortness of breath. She has not had any syncopal episodes. Review of Systems General: Reports: 10 or more systems reviewed and unremarkable except in HPI and below PFSH ED PFSH: Medical History Bladder stone Borderline personality disorder Cannabis dependence, uncomplicated Chronic anxiety Chronic back pain greater than 3 months duration Chronic gastritis without bleeding COPD (chronic obstructive pulmonary disease) Cystitis cystica Dysphagia Esophageal stricture Foreign body in bladder GERD without esophagitis Insomnia Neurogenic bladder Opioid dependence, uncomplicated Psychiatric care Restrictive lung disease Schizoaffective disorder, bipolar type Tardive dyskinesia Tobacco use disorder Urgency incontinence Surgical History H/O bladder repair surgery MESH REPAIR H/O colonoscopy with polypectomy H/O esophagogastroduodenoscopy (09/21/20) H/O: hysterectomy History of appendectomy History of breast biopsy History of foot surgery sx in 2009. Screws placed by Dr. Don. History of ureter stent Hx of cholecystectomy S/P bronchoscopy with biopsy Family History Mother No problems noted. Father No problems noted. Other Asthma Cancer Diabetes Heart disease Social History Smoking and tobacco status: current every day smoker cigarettes Packs smoked per day: 1 Years cigarettes smoked: 20 [ Other cigarette details: Hx of 1 PPD x 20 Years, started at age 27] Quit status (tobacco): considering quitting Second hand smoke exposure: Yes Smoking risk assessment/counseling performed?: No Alcohol intake: never Counseling given: No Substance/Drug Use: former Counseling given: No Lives independently: Yes Household members: spouse Marital status: Number of children: 3 Current occupational status: disabled Do you think of yourself as: Straight/Heterosexual Current gender identity: Female Physical Exam Const: COMMON NORMALS: no acute distress, patient oriented x3 and alert HENMT: COMMON NORMALS: normocephalic, atraumatic, hearing grossly normal bilaterally, external ears normal, Normal external nose present, moist oral mucous membranes and oropharynx normal HEAD & SCALP: normocephalic and atraumatic NOSE: Normal external nose present EXTERNAL EAR: Yes external ears normal Eye: COMMON NORMALS: Equal, round and reactive pupils present, EOMs intact bilaterally and conjunctivae normal CONJUNCTIVA: Yes conjunctivae normal PUPIL: Yes Equal, round and reactive pupils present Neck/C-Spine: COMMON NORMALS: no JVD Lymph: LYMPHATIC: no lymphadenopathy noted Resp: COMMON NORMALS: normal respiratory effort, No retractions and No use of accessory muscles OTHER: Patient with coarse lung sounds throughout and harsh, smoker's cough. Raspy voice. Cardio: COMMON NORMALS: no JVD and regular rate RATE: regular rate GI: COMMON NORMALS: Normal to inspection, nondistended, normoactive bowel sounds present : COMMON NORMALS: Yes no CVA tenderness BLADDER/KIDNEY EXAM: Yes no CVA tenderness Back/Pelvis: COMMON NORMALS: no CVA tenderness, thoracic and lumbar spine normal to inspection and thoraco-lumbar ROM normal Extremity: COMMON NORMALS: normal to inspection, full ROM and no pedal edema Neuro: COMMON NORMALS: patient oriented x3 SENSORIUM/ORIENTATION: Yes alert CRANIAL NERVES: Yes CN normal except as noted SPEECH: speech normal OTHER: Patient with full range of motion to the neck demonstrated during exam. No meningeal signs. Skin: COMMON NORMALS: no rashes or lesions noted and turgor normal GENERAL SKIN EXAM: no rashes or lesions noted and turgor normal Course Vital Signs: Vital signs: Vital Signs Temperature 98.3 F 12/11/22 22:56 Pulse Rate 78 12/12/22 01:23 Respiratory Rate 18 12/12/22 01:23 Blood Pressure 108/71 12/12/22 01:23 Pulse Oximetry 98 12/12/22 01:23 Oxygen Delivery Me thod Room Air 12/11/22 23:37 MDM - Headache Medical Decision Making Patient presented to the emergency department today for evaluation and treatment of headache. Patient reports nausea and vomiting and a headache as the worst she has ever had. She describes it as unlike any other headache she has ever had. Patient's lab work is generally unremarkable. No signs of infection or dehydration though her GFR was a little low. She was given fluids and medication to help with her headache. CT examination was negative for any acute intracranial concerns and, after speaking to Dr. Deleon, patient was administered morphine before discharging home. Discussed with her CT found continued sinus congestion and discussed the possibility of sinus pressure as cause of her headache. Encouraged her to follow-up with her primary care next week. For recheck of any residual headache symptoms or, should be seen and reevaluated for neurological deficit or loss, visual changes, continued vomiting without ability to tolerate fluids, or new onset fever. Patient verbalized understanding and agreement to treatment plan. Differential Diagnosis Likely migraine, tension headache, subarachnoid hemorrhage, headache, meningitis and sinusitis Lab Data 12/12/22 00:23 12/12/22 00:[address] 12/12/22 00:06 IMPRESSION: 1. No evidence of acute intracranial process. 2. Worsening sinus disease. Laboratory Results WBC 10.3 10^3/uL (4.0-10.0) H 12/12/22 00:23 RBC 4.56 10^6/uL (4.1-5.3) 12/12/22 00:23 Hgb 13.9 g/dL (11.5-15.3) 12/12/22 00: Hct 42.7 % (37.0-47.0) 12/12/22 00:23 MCV 93.6 fl (81-99) 12/12/22 00:23 MCH 30.5 pg (28.0-34.0) 12/12/22 00: MCHC 32.6 g/dL (30.0-36.0) 12/12/22 00:23 RDW 15.6 % (12.1-15.1) H 12/12/22 00:23 Plt Count 222 10^3/cmm (130-400) 12/12/22 00: MPV 10.1 fL (7.4-10.4) 12/12/22 00:23 Neut % (Auto) 70.2 % 12/12/22 00: Lymph % (Auto) 19.6 % 12/12/22 00:23 Benson % (Auto) 5.5 % 12/12/22 00:23 Eos % (Auto) 3.5 % 12/12/22 00:23 Baso % (Auto) 0.9 % 12/12/22 00: Neut # (Auto) 7.25 10^3/uL (1.8-7.7) 12/12/22 00:23 Lymph # (Auto) 2.0 10^3/uL (0.8-4.8) 12/12/22 00: Benson # (Auto) 0.6 10^3/uL (0.2-0.9) 12/12/22 00:23 Eos # (Auto) 0.4 10^3/uL (0.0-0.8) 12/12/22 00: Baso # (Auto) 0.1 10^3/uL (0.0-0.1) 12/12/22 00:23 Nucleated RBC % (auto) 0 % 12/12/22 00: Nucleated RBCs # 0.0 /100WBC 12/12/22 00:23 Sodium 137 mmol/L (136-145) 12/12/22 00:23 Potassium 3.8 mmol/L (3.5-5.1) 12/12/22 00:23 Chloride 105 mmol/L (98-107) 12/12/22 00: Carbon Dioxide 22 mmol/L (22-29) 12/12/22 00:23 Anion Gap 13.8 (5-19) 12/12/22 00:23 BUN 12 mg/dL (6-20) 12/12/22 00:23 Creatinine 0.8 mg/dL (0.5-0.9) 12/12/22 00:23 GFR Calculation 74.5 mL/min (90-130) L 12/12/22 00:23 Glucose 96 mg/dL (65-115) 12/12/22 00:23 Calculated Osmolality 284 mOsm/kg (285-295) L 12/12/22 00:23 Calcium 8.9 mg/dL (8.5-10.5) 12/12/22 00:23 Total Bilirubin 0.3 mg/dL (0.15-1.2) 12/12/22 00:23 AST 11 U/L (0-32) 12/12/22 00:23 ALT 9 U/L (0-33) 12/12/22 00:23 Alkaline Phosphatase 120 U/L (35-105) H 12/12/22 00:23 Total Protein 6.2 g/dL (6.6-8.7) L 12/12/22 00:23 Albumin 3.8 g/dL (3.5-5.2) 12/12/22 00:23 Globulin 2.4 g/dL (1.3-4.6) 12/12/22 00:23 Urine Color Yellow (Yellow) 12/12/22 00:48 Urine Appearance Clear (CLEAR) 12/12/22 00:48 Urine pH 6 (5-7) 12/12/22 00:48 Ur Specific Bayard 1.010 (1.005-1.030) 12/12/22 00:48 Urine Protein Neg (Negative) 12/12/22 00:48 Urine Glucose (UA) Norm (Normal) 12/12/22 00:48 Urine Ketones Negative (Negative) 12/12/22 00:48 Urine Blood Neg (Negative) 12/12/22 00:48 Urine Nitrate Negative (Negative) 12/12/22 00:48 Urine Bilirubin Neg (Negative) 12/12/22 00:48 Urine Urobilinogen Norm mg/dL (Negative) 12/12/22 00:48 Ur Leukocyte Esterase Negative (Negative) 12/12/22 00:48 Discharge Plan Discharge Patient Disposition: Home Clinical Impression: Headache, Sinus congestion Condition: Stable Prescriptions: No Action montelukast [Singulair] 10 mg tablet 10 mg PO DAILY 90 Days Qty: 90 0RF mbdcqplsuezf-Hp-ngvr-minerals 18-0.4 mg tablet PO Ingrezza 80 mg capsule 80 mg PO .hs Qty: 30 1RF Rx Instructions: Take one capsule by mouth every morning citalopram 40 mg tablet 40 mg PO .q am Qty: 30 1RF Rx Instructions: Take one tablet by mouth every morning lamotrigine 200 mg tablet 200 mg PO DAILY@06 Qty: 30 1RF Rx Instructions: Take one tablet by mouth every morning mirtazapine [Remeron] 15 mg tablet 7.5 mg PO .qhs Qty: 15 1RF Rx Instructions: Take one-half tablet daily at bedtime nystatin 100,000 unit/gram powder 1 applic topical BID Qty: 30 0RF Rx Instructions: apply locally to B/L groin folds Afrin (oxymetazoline) 0.05 % mist 2 spray intranasal Q12H PRN (Reason: nasal congestion) 3 Days Qty: 15 0RF pantoprazole 40 mg tablet,delayed release (DR/EC) See Rx Instructions .ROUTE .COMPLEX Qty: 90 0RF Dose Instruction: TAKE 1 TABLET BY MOUTH DAILY AT 6 AM Rx Instructions: TAKE 1 TABLET BY MOUTH DAILY AT 6 AM albuterol sulfate 90 mcg/actuation HFA aerosol inhaler See Rx Instructions .ROUTE .COMPLEX Qty: 8.5 0RF Dose Instruction: INHALE 2 PUFFS BY MOUTH EVERY 6 HOURS NEEDED FOR SHORTNESS OF BREATH OR WHEEZING Rx Instructions: INHALE 2 PUFFS BY MOUTH EVERY 6 HOURS NEEDED FOR SHORTNESS OF BREATH OR WH EEZING acetaminophen 500 mg Tablet 1,000 mg PO Q6H PRN (Reason: Pain) Trelegy Ellipta 200-62.5-25 mcg blister with device 1 ea inhalation DAILY@06 Rx Instructions: STOP BREO AND IPRATROPIUM Compazine 25 mg suppository 25 mg HI Q12H PRN (Reason: nausea and vomiting) Qty: 12 0RF ondansetron 4 mg tablet,disintegrating 4 mg PO Q8H PRN (Reason: nausea and vomiting) Qty: 25 0RF Reglan 10 mg tablet 10 mg PO Q6H PRN (Reason: nausea and vomiting) Qty: 20 0RF zofran 1 tab PO 3XD PRN (Reason: nausea) Qty: 20 0RF Compazine 25 mg suppository 25 mg HI BID PRN (Reason: nausea and vomiting) Qty: 20 0RF Discharge Orders: Discharge ED (Routine); Ordered 12/12/22 Ordered By: Roula Starks Referrals: Dara Tavera, BOOK REVIEWER [Primary Care Provider] - Discharge Diet: Usual diet Discharge Activity: Increase activity as tolerated Activity Restrictions/Additional Instructions: Your evaluation here in the emergency department revealed no acute concerns. Lab work is generally unremarkable and CT examination reveals sinus congestion. You can continue taking symptomatic [id number] cough and congestion medications as you can tolerate. Follow-up with your primary care in the next couple of days for recheck. Coding Level of Care Code ED Occupational Health Nursing Director for Shellie Guallpa
== END 2022-12-12 01:28 | disposition home or self-care (01) ==
PROVIDERS: Emergency Provider Physician Assistant; PCP Registered Nurse
DX: R51.9 Headache, unspecified (principal); R09.81 Nasal congestion; F17.210 Nicotine dependence, cigarettes, uncomplicated; J44.9 Chronic obstructive pulmonary disease, unspecified
CPT/HCPCS: 70450; 80053; 81003; 85025; 96372; 96374; 96375; 99284; 99285; J0780; J1170; J2270; J7030; J8540; Q0144

== ENCOUNTER 2022-12-12 04:24 | Emergency (ER) | payer MEDICARE, MEDICAID, SELFPAY ==
[2022-12-12 04:28] VITALS: BP 130/71; PULSE 74; RESP 16; TEMP 37.6; O2SAT 97; BMI 29.9
[2022-12-12] MEDS: azithromycin 250 mg Tablet 500 MG PO (05:46)
[2022-12-12] MEDS: dexamethasone 4 mg Tablet 6 MG PO (05:47)
[2022-12-12] MEDS: prochlorperazine 10 mg/2 mL Inj IM (05:48)
[2022-12-12 05:50] VITALS: RESP 15; O2SAT 99
[2022-12-12] MEDS: HYDROmorphone 1 mg/mL INJ 1 mL IM (05:50)
[2022-12-12 05:59] VITALS: PULSE 66; RESP 15; O2SAT 99
--- NOTE | 2022-12-12 06:20 | W.ED.HA ---
HPI - Headache General: Chief Complaint: Headache Stated Complaint: ABD Pain\Headache Time Seen by Provider: 12/12/22 05:00 Source: patient History of Present Illness: 57-year-old female well-known to the ER service. She presents again this morning with a headache. She was discharged about 3 hours ago. She is set up in the waiting room, with return of her symptoms. She was diagnosed with sinusitis, and headache. She was given injections of medication with some IV fluid. She notes that she threw up in the lobby, and that her symptoms of headache and congestion have returned. MD elicited complaint: headache Onset description: gradually Location: frontal Quality & Timing: aching and throbbing Associated symptoms: Reports cough, eye redness, fever(s), nausea, rash and vomiting; Deny chest pain, confusion, eye pain or neck stiffness Treatments prior to arrival: other Review of Systems Const: Reports: fever(s) Card: Denies: chest pain Resp: Reports: productive cough; Denies: dyspnea GI: Reports: nausea and vomiting Skin/Breast: Reports: rash Neuro: Denies: confusion PFSH ED PFSH: Medical History Bladder stone Borderline personality disorder Cannabis dependence, uncomplicated Chronic anxiety Chronic back pain greater than 3 months duration Chronic gastritis without bleeding COPD (chronic obstructive pulmonary disease) Cystitis cystica Dysphagia Esophageal stricture Foreign body in bladder GERD without esophagitis Insomnia Neurogenic bladder Opioid dependence, uncomplicated Psychiatric care Restrictive lung disease Schizoaffective disorder, bipolar type Tardive dyskinesia Tobacco use disorder Urgency incontinence Surgical History H/O bladder repair surgery MESH REPAIR H/O colonoscopy with polypectomy H/O esophagogastroduodenoscopy (09/21/20) H/O: hysterectomy History of appendectomy History of breast biopsy History of foot surgery sx in 2009. Screws placed by Dr. Don. History of ureter stent Hx of cholecystectomy S/P bronchoscopy with biopsy Family History Mother No problems noted. Father No problems noted. Other Asthma Cancer Diabetes Heart disease Social History Smoking and tobacco status: current every day smoker cigarettes Packs smoked per day: 1 Years cigarettes smoked: 20 [ Other cigarette details: Hx of 1 PPD x 20 Years, started at age 27] Quit status (tobacco): considering quitting Second hand smoke exposure: Yes Smoking risk assessment/counseling performed?: No Alcohol intake: never Counseling given: No Substance/Drug Use: former Counseling given: No Lives independently: Yes Household members: spouse Marital status: Number of children: 3 Current occupational status: disabled Do you think of yourself as: Straight/Heterosexual Current gender identity: Female Physical Exam Const: COMMON NORMALS: no acute distress GENERAL APPEARANCE: cooperative; not ill appearing and not frail appearing HENMT: COMMON NORMALS: normocephalic, atraumatic and Normal external nose present HEAD & SCALP: normocephalic and atraumatic FACE & SINUS: normal facial exam and face symmetric NOSE: Normal external nose present Eye: COMMON NORMALS: Equal, round and reactive pupils present and EOMs intact bilaterally PUPIL: Yes Equal, round and reactive pupils present Neck/C-Spine: GENERAL: Yes trachea midline Chest: CHEST: Yes Symmetrical chest wall rise Resp: COMMON NORMALS: normal respiratory effort, No retractions, No use of accessory muscles and clear to auscultation bilaterally AUSCULTATION: clear to auscultation bilaterally Cardio: COMMON NORMALS: regular rate and regular rhythm RATE: regular rate RHYTHM: regular rhythm GI: COMMON NORMALS: Normal to inspection, nondistended, normoactive bowel sounds present Extremity: COMMON NORMALS: no pedal edema Neuro: JEANINE COMA SCALE: document GCS findings Jeanine coma scale eye opening: Spontaneous Mercer coma scale verbal response: Orientated Mercer coma scale motor response: Obey commands Mercer coma scale total score: 15 SENSORY EXAM: Yes extremities (intact) Psych: COMMON NORMALS: speech normal SPEECH: Yes normal speech Skin: COMMON NORMALS: no rashes or lesions noted GENERAL SKIN EXAM: no rashes or lesions noted Course Vital Signs: Vital signs: Vital Signs Temperature 99.7 F H 12/12/22 04:28 Pulse Rate 66 12/12/22 05:59 Respiratory Rate 15 12/12/22 05:59 Blood Pressure 130/71 12/12/22 04:28 Pulse Oximetry 99 12/12/22 05:59 Oxygen Delivery Me thod Room Air 12/12/22 04:28 MDM - Headache Medical Decision Making Latesha received an injection for pain and nausea related to her headache this morning. She'll be discharged at this point.Since her sinusitis is bad enough to make changes on CT, done prior, we will elect to treat her with antibiotics and decongestants. She will continue her Flonase. Discharge Plan Discharge Patient Disposition: Home Clinical Impression: Sinusitis Condition: Stable Prescriptions: New azithromycin 250 mg tablet See Rx Instructions .ROUTE .COMPLEX Qty: 6 0RF Rx Instructions: For 250 mg dose pack: take 500 mg today (day 1), then 250 mg for 4 days (days 2-5) pseudoephedrine HCl 30 mg tablet 30 mg PO Q6H PRN (Reason: nasal congestion) Qty: 10 0RF No Action montelukast [Singulair] 10 mg tablet 10 mg PO DAILY 90 Days Qty: 90 0RF kfjwullcmpno-Wo-pohm-minerals 18-0.4 mg tablet PO nystatin 100,000 unit/gram powder 1 applic topical BID Qty: 30 0RF Rx Instructions: apply locally to B/L groin folds Afrin (oxymetazoline) 0.05 % mist 2 spray intranasal Q12H PRN (Reason: nasal congestion) 3 Days Qty: 15 0RF pantoprazole 40 mg tablet,delayed release (DR/EC) See Rx Instructions .ROUTE .COMPLEX Qty: 90 0RF Dose Instruction: TAKE 1 TABLET BY MOUTH DAILY AT 6 AM Rx Instructions: TAKE 1 TABLET BY MOUTH DAILY AT 6 AM albuterol sulfate 90 mcg/actuation HFA aerosol inhaler See Rx Instructions .ROUTE .COMPLEX Qty: 8.5 0RF Dose Instruction: INHALE 2 PUFFS BY MOUTH EVERY 6 HOURS NEEDED FOR SHORTNESS OF BREATH OR WHEEZING Rx Instructions: INHALE 2 PUFFS BY MOUTH EVERY 6 HOURS NEEDED FOR SHORTNESS OF BREATH OR WHEEZING citalopram 40 mg tablet 40 mg PO .q am Qty: 30 0RF Rx Instructions: Take one tablet by mouth every morning lamotrigine 200 mg tablet 200 mg PO DAILY@06 Qty: 30 0RF Rx Instructions: Take one tablet by mouth every morning mirtazapine [Remeron] 15 mg tablet 7.5 mg PO .qhs Qty: 15 0RF Rx Instructions: Take one-half tablet daily at bedtime Ingrezza 80 mg capsule 80 mg PO .hs Qty: 30 0RF Rx Instructions: Take one capsule by mouth every morning acetaminophen 500 mg Tablet 1,000 mg PO Q6H PRN (Reason: Pain) Trelegy Ellipta 200-62.5-25 mcg blister with device 1 ea inhalation DAILY@06 Rx Instructions: STOP BREO AND IPRATROPIUM Compazine 25 mg suppository 25 mg KS Q12H PRN (Reason: nausea and vomiting) Qty: 12 0RF ondansetron 4 mg tablet,disintegrating 4 mg PO Q8H PRN (Reason: nausea and vomiting) Qty: 25 0RF Reglan 10 mg tablet 10 mg PO Q6H PRN (Reason: nausea and vomiting) Qty: 20 0RF zofran 1 tab PO 3XD PRN (Reason: nausea) Qty: 20 0RF Compazine 25 mg suppository 25 mg KS BID PRN (Reason: nausea and vomiting) Qty: 20 0RF Discharge Orders: Discharge ED (Routine); Ordered 12/12/22 Ordered By: Chivo Deleon Referrals: Dara Tavera FNP [Primary Care Provider] - 1-3 days Patient Instructions: Sinusitis (ED), Opioid Safety, Pain Management Activity Restrictions/Additional Instructions: Medication as directed. Take pseudoephedrine for congestion. This is not an antihistamine and should not affect your tar dive dyskinesia. See your doctor this week for follow-up. Coding Level of Care Code ED [employer] for Shellie Guallpa
== END 2022-12-12 05:56 | disposition home or self-care (01) ==
PROVIDERS: Emergency Provider Emergency Medicine; PCP Registered Nurse
DX: J32.9 Chronic sinusitis, unspecified (principal); F17.210 Nicotine dependence, cigarettes, uncomplicated; J44.9 Chronic obstructive pulmonary disease, unspecified
CPT/HCPCS: 96372; 99284; J0780; J1170; J8540; Q0144

== ENCOUNTER 2022-12-19 19:24 | Emergency (ER) | payer MEDICARE, MEDICAID, SELFPAY ==
[2022-12-19 19:25] VITALS: BP 125/76; PULSE 77; RESP 18; TEMP 36.9; O2SAT 97; BMI 29.9
--- NOTE | 2022-12-19 19:26 | XRR_ITS ---
PROCEDURE INFORMATION: Exam: XR Chest Exam date and time: 12/19/2022 7:38 PM Age: 57 years old Clinical indication: Pain; Chest pressure; Additional info: Cp TECHNIQUE: Imaging protocol: Radiologic exam of the chest. Views: 1 view. COMPARISON: CR (CHEST, ) 11/24/2022 7:32 PM FINDINGS: Lungs: Unremarkable. No consolidation. Pleural spaces: Unremarkable. No pleural effusion. No pneumothorax. Heart/Mediastinum: Unremarkable. No cardiomegaly. Bones/joints: Visualized osseous structures show no acute abnormality. Other findings: No significant change with prior exam. XR/XR chest 1V portable [id number] IMPRESSION: No acute cardiopulmonary abnormality.
--- NOTE | 2022-12-19 19:29 | ECG_ITS ---
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 Measurements Intervals [place] Rate: 71 P: 60 TN: 150 QRS: 52 QRSD: 106 T: 52 QT: 409 QTc: 446 Interpretive Statements SINUS RHYTHM Compared to ECG 11/24/2022 19:23:13 No significant changes Electronically Signed On 12-20-2022 8:30:12 CDT by Severo Aly M.D. [id number]
[2022-12-19] MEDS: ondansetron 2 mg/ML SDV 2 mL 4 MG IVP (19:34)
[2022-12-19] MEDS: morphine 4 mg/mL SDV 1 mL IVP (19:34)
--- NOTE | 2022-12-19 20:08 | W.ED.CHESTPA ---
HPI - Chest Pain General: Chief Complaint: Chest Pain Stated Complaint: CP Time Seen by Provider: 12/19/22 19:26 Source: patient and EMS Mode of arrival: EMS Limitations: no limitations History of Present Illness: 57-year-old female well-known to ER states been having chest pain throughout the day states presents sharp pain in the center of her chest she denies any fevers denies any vomiting or diarrhea she rates the pain a 6 out of 10 currently states its been constant denies any worsening proving factors. Associated symptoms: Deny abdominal pain, dyspnea, fever(s), nausea or vomiting Review of Systems Const: Denies: fever(s), chills, body aches or change in appetite ENMT: Denies: throat pain or dental pain Card: Reports: chest pain Resp: Denies: dyspnea GI: Denies: abdominal pain, nausea, vomiting or diarrhea Musc: Denies: neck pain or back pain Skin/Breast: Denies: rash Neuro: Denies: headache(s) PFSH ED PFSH: Medical History Bladder stone Borderline personality disorder Cannabis dependence, uncomplicated Chronic anxiety Chronic back pain greater than 3 months duration Chronic gastritis without bleeding COPD (chronic obstructive pulmonary disease) Cystitis cystica Dysphagia Esophageal stricture Foreign body in bladder GERD without esophagitis Insomnia Neurogenic bladder Opioid dependence, uncomplicated Psychiatric care Restrictive lung disease Schizoaffective disorder, bipolar type Tardive dyskinesia Tobacco use disorder Urgency incontinence Surgical History H/O bladder repair surgery MESH REPAIR H/O colonoscopy with polypectomy H/O esophagogastroduodenoscopy (09/21/20) H/O: hysterectomy History of appendectomy History of breast biopsy History of foot surgery sx in 2009. Screws placed by Dr. Don. History of ureter stent Hx of cholecystectomy S/P bronchoscopy with biopsy Family History Mother No problems noted. Father No problems noted. Other Asthma Cancer Diabetes Heart disease Social History Smoking and tobacco status: current every day smoker cigarettes Packs smoked per day: 1 Years cigarettes smoked: 20 [ Other cigarette details: Hx of 1 PPD x 20 Years, started at age 27] Quit status (tobacco): considering quitting Second hand smoke exposure: Yes Smoking risk assessment/counseling performed?: No Alcohol intake: never Counseling given: No Substance/Drug Use: former Counseling given: No Lives independently: Yes Household members: spouse Marital status: Number of children: 3 Current occupational status: disabled Do you think of yourself as: Straight/Heterosexual Current gender identity: Female Physical Exam Const: COMMON NORMALS: no acute distress, patient oriented x3 and healthy appearing HENMT: COMMON NORMALS: normocephalic and atraumatic HEAD & SCALP: normocephalic and atraumatic Eye: COMMON NORMALS: Equal, round and reactive pupils present and EOMs intact bilaterally PUPIL: Yes Equal, round and reactive pupils present Neck/C-Spine: COMMON NORMALS: full ROM and supple Chest: COMMONS NORMALS: normal inspection of the chest and normal palpation of entire chest wall Resp: COMMON NORMALS: normal respiratory effort, No retractions, No use of accessory muscles and clear to auscultation bilaterally AUSCULTATION: clear to auscultation bilaterally Cardio: COMMON NORMALS: regular rate, regular rhythm and No murmurs present (Cardio) RATE: regular rate RHYTHM: regular rhythm GI: COMMON NORMALS: Normal to inspection, nondistended, normoactive bowel sounds present, Soft to palpation, non-tender and no masses PALPATION: Yes Soft to palpation Extremity: COMMON NORMALS: normal to inspection and full ROM Neuro: COMMON NORMALS: patient oriented x3, moves all extremities and no focal motor deficits Psych: COMMON NORMALS: mental status grossly normal, Normal thought process present and cooperative THOUGHT PROCESS: Normal thought process present Skin: COMMON NORMALS: no rashes or lesions noted and no wounds GENERAL SKIN EXAM: no rashes or lesions noted Course Vital Signs: Vital signs: Vital Signs Temperature 98.4 F 12/19/22 19:25 Pulse Rate 77 12/19/22 19:25 Respiratory Rate 18 12/19/22 19:25 Blood Pressure 125/76 12/19/22 19:25 Pulse Oximetry 97 12/19/22 19:25 MDM - Chest Pain Medical Decision Making Patient presents for chest pain she is well-known to the ER she been seen here multiple times for same EKG x-ray is normal she is stable for discharge has no signs of acute coronary syndrome. Medical Records I reviewed the patient's medical records. EKG Data EKG 1: I personally reviewed and interpreted this EKG as follows: EKG interpretation date: 12/19/22 EKG interpretation time: 19:29 Interpretation: nsr hr [address] or t wave abnormalities qrs 106 qtc 432 Discharge Plan Discharge Patient Disposition: Home Clinical Impression: Chest pain Condition: Stable Prescriptions: No Action montelukast [Singulair] 10 mg tablet 10 mg PO DAILY 90 Days Qty: 90 0RF [id number]-Gp-epur-minerals 18-0.4 mg tablet PO nystatin 100,000 unit/gram powder 1 applic topical BID Qty: 30 0RF Rx Instructions: apply locally to B/L groin folds Afrin (oxymetazoline) 0.05 % mist 2 spray intranasal Q12H PRN (Reason: nasal congestion) 3 Days Qty: 15 0RF pantoprazole 40 mg tablet,delayed release (DR/EC) See Rx Instructions .ROUTE .COMPLEX Qty: 90 0RF Dose Instruction: TAKE 1 TABLET BY MOUTH DAILY AT 6 AM Rx Instructions: TAKE 1 TABLET BY MOUTH DAILY AT 6 AM albuterol sulfate 90 mcg/actuation HFA aerosol inhaler See Rx Instructions .ROUTE .COMPLEX Qty: 8.5 0RF Dose Instruction: INHALE 2 PUFFS BY MOUTH EVERY 6 HOURS NEEDED FOR SHORTNESS OF BREATH OR WHEEZING Rx Instructions: INHALE 2 PUFFS BY MOUTH EVERY 6 HOURS NEEDED FOR SHORTNESS OF BREATH OR WHEEZING citalopram 40 mg tablet 40 mg PO .q am Qty: 30 0RF Rx Instructions: Take one tablet by mouth every morning lamotrigine 200 mg tablet 200 mg PO DAILY@06 Qty: 30 0RF Rx Instructions: Take one tablet by mouth every morning mirtazapine [Remeron] 15 mg tablet 7.5 mg PO .qhs Qty: 15 0RF Rx Instructions: Take one-half tablet daily at bedtime Ingrezza 80 mg capsule 80 mg PO .hs Qty: 30 0RF Rx Instructions: Take one capsule by mouth every morning acetaminophen 500 mg Tablet 1,000 mg PO Q6H PRN (Reason: Pain) Trelegy Ellipta 200-62.5-25 mcg blister with device 1 ea inhalation DAILY@06 Rx Instructions: STOP BREO AND IPRATROPIUM Compazine 25 mg suppository 25 mg CO Q12H PRN (Reason: nausea and vomiting) Qty: 12 0RF ondansetron 4 mg tablet,disintegrating 4 mg PO Q8H PRN (Reason: nausea and vomiting) Qty: 25 0RF Reglan 10 mg tablet 10 mg PO Q6H PRN (Reason: nausea and vomiting) Qty: 20 0RF zofran 1 tab PO 3XD PRN (Reason: nausea) Qty: 20 0RF Compazine 25 mg suppository 25 mg CO BID PRN (Reason: nausea and vomiting) Qty: 20 0RF azithromycin 250 mg tablet See Rx Instructions .ROUTE .COMPLEX Qty: 6 0RF Rx Instructions: For 250 mg dose pack: take 500 mg today (day 1), then 250 mg for 4 days (days 2-5) pseudoephedrine HCl 30 mg tablet 30 mg PO Q6H PRN (Reason: nasal congestion) Qty: 10 0RF Discharge Orders: Discharge ED (Routine); Ordered 12/19/22 Ordered By: Damien Urbina Referrals: Dara Tavera FNP [Primary Care Provider] - 1-3 days Discharge Diet: Advance as tolerated Discharge Activity: Resume usual activity Patient Instructions: Chest Pain (ED) Coding Level of Care Code ED Habitat Conservation Planner for Shellie Guallpa
[2022-12-19] MEDS: HYDROcodone-acetaminophen 5-325 mg Tablet 1 TAB PO (20:13)
[2022-12-19 20:16] VITALS: BP 125/76; PULSE 77; RESP 18; TEMP 36.9; O2SAT 97
== END 2022-12-19 20:17 | disposition home or self-care (01) ==
PROVIDERS: Emergency Provider Emergency Medicine; PCP Registered Nurse
DX: F17.210 Nicotine dependence, cigarettes, uncomplicated (principal); Z79.899 Other long term (current) drug therapy
CPT/HCPCS: 71045; 93005; 96374; 96375; 99284; J2270; J2405

== ENCOUNTER 2023-01-01 19:17 | Emergency (ER) | payer MEDICARE, MEDICAID, SELFPAY ==
--- NOTE | 2023-01-01 19:56 | W.ED.ABDPA2 ---
HPI - Abdominal Pain General: Stated Complaint: Abd Pain Time Seen by Provider: 01/01/23 19:47 History of Present Illness: 57-year-old female with multiple ER visits and chronic marijuana abuse presents emergency room today with similar complaint of abdominal pain nausea and vomiting for the past few days. She described the pain as aching/cramping sensation diffusely with severity of 7 out of 10. She reports having few episode of vomiting today but denies any diarrhea, bloody stool or dark stool. Rating blood or coughing up blood. Sick contacts recent foreign travel. Denies any dysuria, hematuria urine frequency. Associated Symptoms: Reports nausea and vomiting; Denies belching, bloating, coffee ground emesis, constipation, GI cramping, diarrhea, excessive flatus, heartburn and hematemesis Review of Systems General: Reports: 10 or more systems reviewed and unremarkable except in HPI and below GI: Reports: abdominal pain, nausea and vomiting; Denies: hematemesis, coffee ground emesis, dysphagia, heartburn, early satiety, diarrhea, constipation, bloating, GI cramping, belching or excessive flatus PFSH ED PFSH: Medical History Bladder stone Borderline personality disorder Cannabis dependence, uncomplicated Chronic anxiety Chronic back pain greater than 3 months duration Chronic gastritis without bleeding COPD (chronic obstructive pulmonary disease) Cystitis cystica Dysphagia Esophageal stricture Foreign body in bladder GERD without esophagitis Insomnia Neurogenic bladder Opioid dependence, uncomplicated Psychiatric care Restrictive lung disease Schizoaffective disorder, bipolar type Tardive dyskinesia Tobacco use disorder Urgency incontinence Surgical History H/O bladder repair surgery MESH REPAIR H/O colonoscopy with polypectomy H/O esophagogastroduodenoscopy (09/21/20) H/O: hysterectomy History of appendectomy History of breast biopsy History of foot surgery sx in 2009. Screws placed by Dr. Don. History of ureter stent Hx of cholecystectomy S/P bronchoscopy with biopsy Family History Mother No problems noted. Father No problems noted. Other Asthma Cancer Diabetes Heart disease Social History Smoking and tobacco status: current every day smoker cigarettes Packs smoked per day: 1 Years cigarettes smoked: 20 [ Other cigarette details: Hx of 1 PPD x 20 Years, started at age 27] Quit status (tobacco): considering quitting Second hand smoke exposure: Yes Smoking risk assessment/counseling performed?: No Alcohol intake: never Counseling given: No Substance/Drug Use: former Counseling given: No Lives independently: Yes Household members: spouse Marital status: Number of children: 3 Current occupational status: disabled Do you think of yourself as: Straight/Heterosexual Current gender identity: Female Physical Exam Const: COMMON NORMALS: no acute distress, average body habitus, patient oriented x3, no limitations, healthy appearing, alert and well nourished Neck/C-Spine: COMMON NORMALS: no JVD Lymph: LYMPHATIC: no lymphadenopathy noted Resp: COMMON NORMALS: normal respiratory effort Cardio: COMMON NORMALS: no JVD, regular rate, regular rhythm, S1 normal heart sound present, S2 normal heart sound present, No gallops present (Cardio), No clicks present (Cardio), No murmurs present (Cardio), No rub (Cardio) and Peripheral pulses 2+ throughout RATE: regular rate RHYTHM: regular rhythm HEART SOUNDS: S1 normal heart sound present and S2 normal heart sound present PERIPHERAL PULSES: Peripheral pulses 2+ throughout GI: COMMON NORMALS: Soft to palpation and No hepatosplenomegaly present INSPECTION: Yes normal to inspection and No Fluid wave present AUSCULTATION: Yes normoactive bowel sounds PALPATION: Yes Soft to palpation, Yes Tenderness to palpation present (GI) Details: LLQ, RLQ, LUQ and RUQ and Yes No hepatosplenomegaly present PERCUSSION: no dullness to percussion, no fluid wave and no tympanic to percussion Neuro: COMMON NORMALS: patient oriented x3 SENSORIUM/ORIENTATION: Yes alert MDM - Abdominal Pain Medical Decision Making Patient was made comfortable emergency room. Patient was given IM pain medication and nausea medication. Labs obtained. I reviewed past medical records. Patient allergies and current medication list. Patient was able to drink fluid prior to discharge. She was told to keep her GI appointment as scheduled. Differential Diagnosis Likely abdominal pain, acute appendicitis, calculus of kidney, constipation, diverticulitis, endometriosis, gastroenteritis, pancreatitis and small bowel obstruction Discharge Plan Discharge Patient Disposition: Home Clinical Impression: Abdominal pain, Cannabis dependence, uncomplicated Condition: Stable Prescriptions: No Action montelukast [Johnulair] 10 mg tablet 10 mg PO DAILY 90 Days Qty: 90 0RF chlorpromazine 25 mg tablet 25 mg PO Q6H PRN Ingrezza 80 mg capsule 80 mg PO .hs Qty: 30 0RF Rx Instructions: Take one capsule by mouth every morning lamotrigine 200 mg tablet 200 mg PO DAILY@06 Qty: 30 0RF Rx Instructions: Take one tablet by mouth every morning trazodone 150 mg tablet 150 mg PO DAILY Qty: 30 0RF Rx Instructions: Take one tablet daily at bedtime citalopram 40 mg tablet 40 mg PO .q am Qty: 30 0RF Rx Instructions: Take one tablet by mouth every morning nystatin 100,000 unit/gram powder 1 applic topical BID Qty: 30 0RF Rx Instructions: apply locally to B/L groin folds pantoprazole 40 mg tablet,delayed release (DR/EC) See Rx Instructions .ROUTE .COMPLEX Qty: 90 0RF Dose Instruction: TAKE 1 TABLET BY MOUTH DAILY AT 6 AM Rx Instructions: TAKE 1 TABLET BY MOUTH DAILY AT 6 AM albuterol sulfate 90 mcg/actuation HFA aerosol inhaler See Rx Instructions .ROUTE .COMPLEX Qty: 8.5 0RF Dose Instruction: INHALE 2 PUFFS BY MOUTH EVERY 6 HOURS NEEDED FOR SHORTNESS OF BREATH OR WHEEZING Rx Instructions: INHALE 2 PUFFS BY MOUTH EVERY 6 HOURS NEEDED FOR SHORTNESS OF BREATH OR WHEEZING acetaminophen 500 mg Tablet 1,000 mg PO Q6H PRN (Reason: Pain) ondansetron 4 mg tablet,disintegrating 4 mg PO Q8H PRN (Reason: nausea and vomiting) Qty: 25 0RF Compazine 25 mg suppository 25 mg DC BID PRN (Reason: nausea and vomiting) Qty: 20 0RF Discharge Orders: Discharge ED (Routine); Ordered 01/01/23 Ordered By: Kerri Alvarez Referrals: Dara Tavera FNP [Primary Care Provider] - Discharge Diet: Advance as tolerated Discharge Activity: Resume usual activity Patient Instructions: Abdominal Pain (ED), Opioid Safety, Pain Management Coding Level of Care Code ED Machined Parts Quality Inspector for Shellie Guallpa
[2023-01-01 20:00] VITALS: BP 132/59; PULSE 71; RESP 16; TEMP 36.7; O2SAT 95; BMI 30.7
[2023-01-01 20:13] VITALS: RESP 16; O2SAT 95
[2023-01-01] MEDS: morphine 4 mg/mL SDV 1 mL IM (20:13)
[2023-01-01] MEDS: ondansetron 4 MG Tablet 8 MG PO (20:13)
[2023-01-01 20:17] LABS: Basophils # 0.1 10^3/uL (0.0-0.1); Basophils % 1.1 %; Eosinophils # 0.6 10^3/uL (0.0-0.8); Eosinophils % 5.5 %; Hematocrit 46.2 % (37.0-47.0); Hemoglobin 14.8 g/dL (11.5-15.3); Lymphocytes # 2.7 10^3/uL (0.8-4.8); Lymphocytes % 25.4 %; Mean Corpuscular Hemoglobin 30.6 pg (28.0-34.0); Mean Corpuscular Volume 95.5 fl (81-99); Mean Platelet Volume 9.9 fL (7.4-10.4); Monocytes # 0.7 10^3/uL (0.2-0.9); Monocytes % 6.3 %; Neutrophils # 6.46 10^3/uL (1.8-7.7); Neutrophils % 61.3 %; Nucleated Red Blood Cells % 0 %; Platelet Count 199 10^3/cmm (130-400); Red Blood Count 4.84 10^6/uL (4.1-5.3); White Blood Count 10.5 10^3/uL (4.0-10.0)
[2023-01-01 20:18] VITALS: BP 132/59; PULSE 76; RESP 16; O2SAT 95
[2023-01-01 20:34] LABS: Alanine Aminotransferase 8 U/L (0-33); Albumin Level 3.8 g/dL (3.5-5.2); Alkaline Phosphatase 112 U/L (35-105); Anion Gap 16.1 (5-19); Aspartate Amino Transferase 10 U/L (0-32); Blood Urea Nitrogen 12 mg/dL (6-20); Calcium 9.2 mg/dL (8.5-10.5); Carbon Dioxide 22 mmol/L (22-29); Chloride 106 mmol/L (98-107); Globulin 2.4 g/dL (1.3-4.6); Glucose 97 mg/dL (65-115); Osmolality Calculated 290 mOsm/kg (285-295); Potassium 4.1 mmol/L (3.5-5.1); Sodium 140 mmol/L (136-145); Total Bilirubin 0.2 mg/dL (0.15-1.2); Total Protein 6.2 g/dL (6.6-8.7)
== END 2023-01-01 20:19 | disposition home or self-care (01) ==
PROVIDERS: Emergency Medicine; Emergency Provider Family Medicine; PCP Registered Nurse
DX: R10.9 Unspecified abdominal pain (principal); F12.20 Cannabis dependence, uncomplicated; J44.9 Chronic obstructive pulmonary disease, unspecified; F17.210 Nicotine dependence, cigarettes, uncomplicated
CPT/HCPCS: 36415; 80053; 85025; 96372; 99284; J2270; Q0162

== ENCOUNTER 2023-01-01 22:54 | Emergency (ER) | payer MEDICARE, MEDICAID, SELFPAY ==
[2023-01-01 22:59] VITALS: BP 113/74; PULSE 94; RESP 14; TEMP 36.7; O2SAT 97; BMI 30.7
--- NOTE | 2023-01-01 23:08 | ECG_ITS ---
[facility] Test Date: 2023-01-01 Pat Name: Latesha Wilhelm Department: Room: Gender: Female Emblem Drawer In: : 1965 Requested By: Chivo Reynaga Order Number: [id number] Alice MD: Kenan Sidhu M.D. Measurements Intervals [place] Rate: 91 P: 55 TX: 144 QRS: 44 QRSD: 93 T: 42 QT: 363 QTc: 448 Interpretive Statements SINUS RHYTHM INDETERMINATE AXIS Compared to ECG 12/19/2022 19:29:23 Indeterminate axis now present Electronically Signed On 01-02-2023 21:31:37 CDT by Kenan Sidhu M.D. [email or web address]
[2023-01-01 23:33] LABS: Troponin T (5th) Once 6 ng/L (0-10)
[2023-01-02] VITALS (7 sets, daily range): BP systolic 100–117; BP diastolic 54–65; PULSE 65–79; RESP 12–24; O2SAT 93–99
--- NOTE | 2023-01-02 02:18 | PC.NURSE ---
Repeated EKG on pt in waiting room due to c/o worsening chest pains. Presented to ER physician - no new orders at this time.
[2023-01-02] MEDS: HYDROmorphone 1 mg/mL INJ 1 mL IM (05:39)
[2023-01-02] MEDS: prochlorperazine 10 mg/2 mL Inj IM (05:41)
--- NOTE | 2023-01-03 01:09 | W.ED.CHESTPA ---
HPI - Chest Pain General: Chief Complaint: Chest Pain Stated Complaint: Chest Pains Time Seen by Provider: 01/02/23 04:10 History of Present Illness: 57 year old female very well known to the emergency department service. She presents for the second time tonight. Initially she complained of abdominal pain and vomiting. She was cleared and discharged. She checks back in now with chest discomfort. She tells me she has vomited a couple of times in the waiting room. There is no objective proof of this. She is mildly short of breath. Associated symptoms: Reports abdominal pain, dyspnea, nausea and vomiting; Deny fever(s) or palpitations Review of Systems Const: Denies: fever(s) Eyes: Denies: change in vision ENMT: Denies: throat pain Card: Reports: chest pain; Denies: palpitations or irregular heart rhythm Resp: Reports: dyspnea; Denies: productive cough or non-productive cough GI: Reports: abdominal pain, nausea and vomiting [facility] ED PFSH: Medical History Bladder stone Borderline personality disorder Cannabis dependence, uncomplicated Chronic anxiety Chronic back pain greater than 3 months duration Chronic gastritis without bleeding COPD (chronic obstructive pulmonary disease) Cystitis cystica Dysphagia Esophageal stricture Foreign body in bladder GERD without esophagitis Insomnia Neurogenic bladder Opioid dependence, uncomplicated Psychiatric care Restrictive lung disease Schizoaffective disorder, bipolar type Tardive dyskinesia Tobacco use disorder Urgency incontinence Surgical History H/O bladder repair surgery MESH REPAIR H/O colonoscopy with polypectomy H/O esophagogastroduodenoscopy (09/21/20) H/O: hysterectomy History of appendectomy History of breast biopsy History of foot surgery sx in 2009. Screws placed by Dr. Don. History of ureter stent Hx of cholecystectomy S/P bronchoscopy with biopsy Family History Mother No problems noted. Father No problems noted. Other Asthma Cancer Diabetes Heart disease Social History Smoking and tobacco status: current every day smoker cigarettes Packs smoked per day: 1 Years cigarettes smoked: 20 [ Other cigarette details: Hx of 1 PPD x 20 Years, started at age 27] Quit status (tobacco): considering quitting Second hand smoke exposure: Yes Smoking risk assessment/counseling performed?: No Alcohol intake: never Counseling given: No Substance/Drug Use: former Counseling given: No Lives independently: Yes Household members: spouse Marital status: Number of children: 3 Current occupational status: disabled Do you think of yourself as: Straight/Heterosexual Current gender identity: Female Physical Exam Const: COMMON NORMALS: no acute distress GENERAL APPEARANCE: cooperative; not ill appearing and not frail appearing HENMT: COMMON NORMALS: normocephalic, atraumatic and Normal external nose present HEAD & SCALP: normocephalic and atraumatic FACE & SINUS: normal facial exam and face symmetric NOSE: Normal external nose present Eye: COMMON NORMALS: Equal, round and reactive pupils present and EOMs intact bilaterally PUPIL: Yes Equal, round and reactive pupils present Neck/C-Spine: GENERAL: Yes trachea midline Chest: CHEST: Yes Symmetrical chest wall rise Resp: COMMON NORMALS: normal respiratory effort, No retractions, No use of accessory muscles and clear to auscultation bilaterally AUSCULTATION: clear to auscultation bilaterally Cardio: COMMON NORMALS: regular rate and regular rhythm RATE: regular rate RHYTHM: regular rhythm GI: COMMON NORMALS: Normal to inspection, nondistended, normoactive bowel sounds present PALPATION: Yes Tenderness to palpation present (GI) (diffusely and out of proportion to exam. ) Extremity: COMMON NORMALS: no pedal edema Neuro: JEANINE COMA SCALE: document GCS findings [place] coma scale eye opening: Spontaneous [place] coma scale verbal response: Orientated Jeanine coma scale motor response: Obey commands Jeanine coma scale total score: 15 SENSORY EXAM: Yes extremities (intact) Psych: COMMON NORMALS: speech normal SPEECH: Yes normal speech Skin: COMMON NORMALS: no rashes or lesions noted GENERAL SKIN EXAM: no rashes or lesions noted Course Vital Signs: Vital signs: Vital Signs Temperature 98.1 F 01/01/23 22:59 Pulse Rate 79 01/02/23 05:55 Respiratory Rate 13 01/02/23 05:55 Blood Pressure 105/58 01/02/23 05:55 Pulse Oximetry 98 01/02/23 05:55 Oxygen Delivery Me thod Room Air 01/02/23 05:36 MDM - Chest Pain Medical Decision Making Abdominal and or chest pain seems to be a recurring theme for this patient. In her work up is benign as of previous labs. Troponin was added to her lab, as normal. EKG is normal, with a normal sinus rhythm, normal rate, and no ST changes. [address] is normal. She's given an injection, for pain, and discharged. Lab Data Laboratory Results Troponin T Gen 5 ng/L 6 ng/L (0-10) 01/01/23 19:50 Discharge Plan Discharge Patient Disposition: Home Clinical Impression: Chest pain Condition: Stable Prescriptions: Continued Compazine 25 mg suppository 25 mg MT BID PRN (Reason: nausea and vomiting) Qty: 20 0RF No Action montelukast [Singulair] 10 mg tablet 10 mg PO DAILY 90 Days Qty: 90 0RF chlorpromazine 25 mg tablet 25 mg PO Q6H PRN Ingrezza 80 mg capsule 80 mg PO .hs Qty: 30 0RF Rx Instructions: Take one capsule by mouth every morning lamotrigine 200 mg tablet 200 mg PO DAILY@06 Qty: 30 0RF Rx Instructions: Take one tablet by mouth every morning trazodone 150 mg tablet 150 mg PO DAILY Qty: 30 0RF Rx Instructions: Take one tablet daily at bedtime citalopram 40 mg tablet 40 mg PO .q am Qty: 30 0RF Rx Instructions: Take one tablet by mouth every morning nystatin 100,000 unit/gram powder 1 applic topical BID Qty: 30 0RF Rx Instructions: apply locally to B/L groin folds albuterol sulfate 90 mcg/actuation HFA aerosol inhaler See Rx Instructions .ROUTE .COMPLEX Qty: 8.5 0RF Dose Instruction: INHALE 2 PUFFS BY MOUTH EVERY 6 HOURS NEEDED FOR SHORTNESS OF BREATH OR WHEEZING Rx Instructions: INHALE 2 PUFFS BY MOUTH EVERY 6 HOURS NEEDED FOR SHORTNESS OF BREATH OR WHEEZING pantoprazole 40 mg tablet,delayed release (DR/EC) See Rx Instructions .ROUTE .COMPLEX Qty: 90 0RF Dose Instruction: TAKE 1 TABLET BY MOUTH DAILY AT 6 AM Rx Instructions: TAKE 1 TABLET BY MOUTH DAILY AT 6 AM acetaminophen 500 mg Tablet 1,000 mg PO Q6H PRN (Reason: Pain) ondansetron 4 mg tablet,disintegrating 4 mg PO Q8H PRN (Reason: nausea and vomiting) Qty: 25 0RF Discharge Orders: Discharge ED (Routine); Ordered 01/02/23 Ordered By: Chivo Deleon Referrals: Dara Tavera, HEADING MACHINE OPERATOR [Primary Care Provider] - 4-7 days Patient Instructions: Chest Pain (ED), Opioid Safety, Pain Management Coding Level of Care Code ED Well Digger for Shellie Guallpa
== END 2023-01-02 05:58 | disposition home or self-care (01) ==
PROVIDERS: Emergency Provider Emergency Medicine; PCP Registered Nurse
DX: R07.9 Chest pain, unspecified (principal); F17.210 Nicotine dependence, cigarettes, uncomplicated; J44.9 Chronic obstructive pulmonary disease, unspecified; R11.2 Nausea with vomiting, unspecified; R10.9 Unspecified abdominal pain
CPT/HCPCS: 36415; 80053; 84484; 85025; 93005; 96372; 99284; J0780; J1170; J2270; Q0162

== ENCOUNTER → 2023-01-17 08:19 | Outpatient (BNVA) | payer BC, MEDICAID, SELFPAY | PROVIDERS: PCP Registered Nurse; Referring Provider Nurse Practitioner Psychiatric/Mental Health; Visit Provider Psychiatry & Neurology Neurology | DX: R55 Syncope and collapse; R51.9 Headache, unspecified; R25.8 Other abnormal involuntary movements; F17.210 Nicotine dependence, cigarettes, uncomplicated; F15.21 Other stimulant dependence, in remission | CPT/HCPCS: 99203 ==

== ENCOUNTER 2023-02-02 19:11 | Emergency (ER) | payer MEDICARE, MEDICAID, SELFPAY ==
[2023-02-02 19:15] VITALS: BP 114/65; PULSE 73; RESP 16; TEMP 37.1; O2SAT 96; BMI 29.9
--- NOTE | 2023-02-02 19:43 | W.ED.ABDPA2 ---
HPI - Abdominal Pain General: Chief Complaint: Abdominal Pain Stated Complaint: ABD PAIN Time Seen by Provider: 02/02/23 19:19 History of Present Illness: Patient presents to the ER with abdominal pain since yesterday. Patient is also had nausea vomiting. Patient denies any bowel or bladder changes. Or any fever or chills. Patient's had these multiple times and been seen in the ER multiple times for this. She has had complete work-ups with CT scans. This time she is refusing to see Dr. Alvarez. Is felt that she is doing this because he refused to give her pain medicine from the last visit he saw her. This instance is the same as the other instances there is nothing different. Patient is asking for IV fluids and pain medicine. Review of Systems General: Reports: 10 or more systems reviewed and unremarkable except in HPI and below PFSH ED PFSH: Medical History Bladder stone Borderline personality disorder Cannabis dependence, uncomplicated Chronic anxiety Chronic back pain greater than 3 months duration Chronic gastritis without bleeding COPD (chronic obstructive pulmonary disease) Cystitis cystica Dysphagia Esophageal stricture Foreign body in bladder GERD without esophagitis Insomnia Neurogenic bladder Opioid dependence, uncomplicated Psychiatric care Restrictive lung disease Schizoaffective disorder, bipolar type Tardive dyskinesia Tobacco use disorder Urgency incontinence Surgical History H/O bladder repair surgery MESH REPAIR H/O colonoscopy with polypectomy H/O esophagogastroduodenoscopy (09/21/20) H/O: hysterectomy History of appendectomy History of breast biopsy History of foot surgery sx in 2009. Screws placed by Dr. Don. History of ureter stent Hx of cholecystectomy S/P bronchoscopy with biopsy Family History Mother No problems noted. Father No problems noted. Other Asthma Cancer Diabetes Heart disease Social History Smoking and tobacco status: current every day smoker cigarettes Packs smoked per day: 1 Years cigarettes smoked: 20 [ Other cigarette details: Hx of 1 PPD x 20 Years, started at age 27] Quit status (tobacco): considering quitting Second hand smoke exposure: Yes Smoking risk assessment/counseling performed?: No Alcohol intake: never Counseling given: No Substance/Drug Use: former Counseling given: No Lives independently: Yes Household members: spouse Marital status: Number of children: 3 Current occupational status: disabled Do you think of yourself as: Straight/Heterosexual Current gender identity: Female Physical Exam Const: COMMON NORMALS: no acute distress, average body habitus, patient oriented x3, no limitations, healthy appearing, alert and well nourished HENMT: COMMON NORMALS: normocephalic, atraumatic, hearing grossly normal bilaterally, external ears normal, Normal external nose present and moist oral mucous membranes HEAD & SCALP: normocephalic and atraumatic NOSE: Normal external nose present EXTERNAL EAR: Yes external ears normal Neck/C-Spine: COMMON NORMALS: full ROM, no lymphadenopathy, supple, no meningeal signs, no JVD and Thyroid normal THYROID: Thyroid normal Lymph: LYMPHATIC: no lymphadenopathy noted Chest: COMMONS NORMALS: normal inspection of the chest and normal palpation of entire chest wall Resp: COMMON NORMALS: normal respiratory effort, No retractions, No use of accessory muscles and clear to auscultation bilaterally AUSCULTATION: clear to auscultation bilaterally Cardio: COMMON NORMALS: no JVD, regular rate, regular rhythm, S1 normal heart sound present, S2 normal heart sound present, No gallops present (Cardio), No clicks present (Cardio), No murmurs present (Cardio) and No rub (Cardio) RATE: regular rate RHYTHM: regular rhythm HEART SOUNDS: S1 normal heart sound present and S2 normal heart sound present GI: COMMON NORMALS: Normal to inspection, nondistended, normoactive bowel sounds present, Soft to palpation, No hepatosplenomegaly present and no masses; negative for non-tender (Tender to palpate lower abdomen, nontender to palpate upper abdomen) PALPATION: Yes Soft to palpation and Yes No hepatosplenomegaly present : COMMON NORMALS: Yes no CVA tenderness BLADDER/KIDNEY EXAM: Yes no CVA tenderness Back/Pelvis: COMMON NORMALS: no CVA tenderness Neuro: COMMON NORMALS: patient oriented x3 SENSORIUM/ORIENTATION: Yes alert MENINGEAL SIGNS: Yes no meningeal signs Course Vital Signs: Vital signs: Vital Signs Temperature 98.7 F 02/02/23 19:15 Pulse Rate 73 02/02/23 19:15 Respiratory Rate 16 02/02/23 19:15 Blood Pressure 114/65 02/02/23 19:15 Pulse Oximetry 96 02/02/23 19:15 MDM - Abdominal Pain Medical Decision Making Presents to the ER with complaints of abdominal pain. Lab work and urinalysis were normal. Patient complains of this abdominal pain several times and has been seen and worked up. Patient complained of pain and requested narcotic pain medicine multiple times during this ER visit, her vital signs remained stable the entire time. Patient was not in visible distress. Patient will be discharged home to follow-up with her family practice physician. Differential Diagnosis Likely abdominal pain; Unlikely calculus of kidney, constipation, diverticulitis, endometriosis, gastroenteritis, pancreatitis or small bowel obstruction Medical Records I reviewed the patient's medical records. Lab Data I reviewed the patient's lab results. 02/02/23 19:59 02/02/23 19:59 Labs/Radiology: Laboratory Results WBC 12.7 10^3/uL (4.0-10.0) H 02/02/23 19:59 RBC 4.64 10^6/uL (4.1-5.3) 02/02/23 19:59 Hgb 14.2 g/dL (11.5-15.3) 02/02/23 19:59 Hct 42.6 % (37.0-47.0) 02/02/23 19:59 MCV 91.8 fl (81-99) 02/02/23 19:59 MCH 30.6 pg (28.0-34.0) 02/02/23 19:59 MCHC 33.3 g/dL (30.0-36.0) 02/02/23 19:59 RDW 14.9 % (12.1-15.1) 02/02/23 19:59 Plt Count 211 10^3/cmm (130-400) 02/02/23 19:59 MPV 10.8 fL (7.4-10.4) H 02/02/23 19:59 Neut % (Auto) 76.2 % 02/02/23 19:59 Lymph % (Auto) 15.6 % 02/02/23 19:59 [place] % (Auto) 5.9 % 02/02/23 19:59 Eos % (Auto) 1.3 % 02/02/23 19:59 Baso % (Auto) 0.7 % 02/02/23 19:59 Neut # (Auto) 9.66 10^3/uL (1.8-7.7) H 02/02/23 19:59 Lymph # (Auto) 2.0 10^3/uL (0.8-4.8) 02/02/23 19:59 [place] # (Auto) 0.8 10^3/uL (0.2-0.9) 02/02/23 19:59 Eos # (Auto) 0.2 10^3/uL (0.0-0.8) 02/02/23 19:59 Baso # (Auto) 0.1 10^3/uL (0.0-0.1) 02/02/23 19:59 Nucleated RBC % (auto) 0 % 02/02/23 19:59 Nucleated RBCs # 0.0 /100WBC 02/02/23 19:59 Sodium 139 mmol/L (136-145) 02/02/23 19:59 Potassium 3.9 mmol/L (3.5-5.1) 02/02/23 19:59 Chloride 106 mmol/L (98-107) 02/02/23 19:59 Carbon Dioxide 24 mmol/L (22-29) 02/02/23 19:59 Anion Gap 12.9 (5-19) 02/02/23 19:59 BUN 16 mg/dL (6-20) 02/02/23 19:59 Creatinine 0.9 mg/dL (0.5-0.9) 02/02/23 19:59 GFR Calculation 65.0 mL/min (90-130) L 02/02/23 19:59 Glucose 103 mg/dL (65-115) 02/02/23 19:59 Calculated Osmolality 289 mOsm/kg (285-295) 02/02/23 19:59 Calcium 8.9 mg/dL (8.5-10.5) 02/02/23 19:59 Total Bilirubin 0.2 mg/dL (0.15-1.2) 02/02/23 19:59 AST 8 U/L (0-32) 02/02/23 19:59 ALT < 5 U/L (0-33) 02/02/23 19:59 Alkaline Phosphatase 117 U/L (35-105) H 02/02/23 19:59 Total Protein 5.9 g/dL (6.6-8.7) L 02/02/23 19:59 Albumin 3.6 g/dL (3.5-5.2) 02/02/23 19:59 Globulin 2.3 g/dL (1.3-4.6) 02/02/23 19:59 Lipase 23 U/L (13-60) 02/02/23 19:59 Urine Color Yellow (Yellow) 02/02/23 22:03 Urine Appearance Hazy (CLEAR) A 02/02/23 22:03 Urine pH 5 (5-7) 02/02/23 22:03 Ur Specific [place] 1.015 (1.005-1.030) 02/02/23 22:03 Urine Protein Neg (Negative) 02/02/23 22:03 Urine Glucose (UA) Norm (Normal) 02/02/23 22:03 Urine Ketones Negative (Negative) 02/02/23 22:03 Urine Blood Neg (Negative) 02/02/23 22:03 Urine Nitrate Negative (Negative) 02/02/23 22:03 Urine Bilirubin Neg (Negative) 02/02/23 22:03 Urine Urobilinogen Neg mg/dL (Negative) 02/02/23 22:03 Ur Leukocyte Esterase 1+ (Negative) H 02/02/23 22:03 Urine RBC None /hpf (0-2) 02/02/23 22:03 Urine WBC 10-15 /hpf (0-5) H 02/02/23 22:03 Ur Squamous Epith Cells 5-10 /hpf (0-5) H 02/02/23 22:03 Amorphous Sediment Not Reportable 02/02/23 22:03 Urine Bacteria 1+ /hpf (NONE) H 02/02/23 22:03 Urine Mucus 2+ /hpf 02/02/23 22:03 Urine Yeast 1+ /hpf H 02/02/23 22:03 Urine Opiates Screen Negative ng/mL (Negative) 02/02/23 22:03 Ur Barbiturates Screen Negative ng/mL (Negative) 02/02/23 22:03 Ur Phencyclidine Scrn Negative ng/mL (Negative) 02/02/23 22:03 Ur Amphetamines Screen Negative ng/mL (Negative) 02/02/23 22:03 U Benzodiazepines Scrn Negative ng/mL (Negative) 02/02/23 22:03 Urine Cocaine Screen Negative ng/mL (Negative) 02/02/23 22:03 U Marijuana (THC) Screen Positive ng/mL (Negative) H 02/02/23 22:03 Discharge Plan Discharge Patient Disposition: Home Clinical Impression: Abdominal pain, chronic, generalized, Marijuana use Condition: Stable Prescriptions: No Action lamotrigine 200 mg tablet 200 mg PO DAILY@06 Qty: 30 0RF Rx Instructions: Take one tablet by mouth every morning trazodone 100 mg tablet 200 mg PO DAILY PRN (Reason: insomnia) Qty: 60 0RF Rx Instructions: Take two tablets at bedtime, if needed for insomnia; stop 150 mg dose Trintellix 10 mg tablet 10 mg PO DAILY Qty: 30 0RF Rx Instructions: Take on tablet by mouth once daily in the morning; stop Celexa Ingrezza 80 mg capsule 80 mg PO .hs Qty: 30 2RF Rx Instructions: Take one capsule by mouth every morning nystatin 100,000 unit/gram powder 1 applic topical BID Qty: 30 0RF Rx Instructions: apply locally to B/L groin folds albuterol sulfate 90 mcg/actuation HFA aerosol inhaler See Rx Instructions .ROUTE .COMPLEX Qty: 8.5 0RF Dose Instruction: INHALE 2 PUFFS BY MOUTH EVERY 6 HOURS NEEDED FOR SHORTNESS OF BREATH OR WHEEZING Rx Instructions: INHALE 2 PUFFS BY MOUTH EVERY 6 HOURS NEEDED FOR SHORTNESS OF BREATH OR WHEEZING pantoprazole 40 mg tablet,delayed release (DR/EC) See Rx Instructions .ROUTE .COMPLEX Qty: 90 0RF Dose Instruction: TAKE 1 TABLET BY MOUTH DAILY AT 6 AM Rx Instructions: TAKE 1 TABLET BY MOUTH DAILY AT 6 AM montelukast [Singulair] 10 mg tablet 10 mg PO DAILY 90 Days Qty: 90 0RF acetaminophen 500 mg Tablet 1,000 mg PO Q6H PRN (Reason: Pain) Compazine 25 mg suppository 25 mg ND BID PRN (Reason: nausea and vomiting) Qty: 20 0RF ondansetron 4 mg tablet,disintegrating 4 mg PO Q8H PRN (Reason: nausea and vomiting) Qty: 25 0RF Discharge Orders: Discharge ED (Routine); Ordered 02/02/23 Ordered By: Colby Fisher Referrals: Dara Tavera FNP [Primary Care Provider] - 7-10 days Patient Instructions: Marijuana Abuse, Abdominal Pain (ED) Activity Restrictions/Additional Instructions: Follow-up with your family practice physician for further evaluation and treatment of your chronic abdominal pain. Coding Level of Care Code ED Child Care Team Lead for Shellie Guallpa
[2023-02-02] MEDS: ondansetron 2 mg/ML SDV 2 mL 8 MG IVP (20:11)
[2023-02-02] MEDS: sodium chloride 0.9% 1,000 ML 999 ML IV (20:11)
[2023-02-02] MEDS: diphenhydrAMINE 50 mg/mL SDV 1mL IVP (20:11)
[2023-02-02 20:14] LABS: Basophils # 0.1 10^3/uL (0.0-0.1); Basophils % 0.7 %; Eosinophils # 0.2 10^3/uL (0.0-0.8); Eosinophils % 1.3 %; Hematocrit 42.6 % (37.0-47.0); Hemoglobin 14.2 g/dL (11.5-15.3); Lymphocytes % 15.6 %; Mean Corpuscular HGB Conc 33.3 g/dL (30.0-36.0); Mean Corpuscular Hemoglobin 30.6 pg (28.0-34.0); Mean Corpuscular Volume 91.8 fl (81-99); Mean Platelet Volume 10.8 fL (7.4-10.4); Monocytes # 0.8 10^3/uL (0.2-0.9); Monocytes % 5.9 %; Neutrophils # 9.66 10^3/uL (1.8-7.7); Neutrophils % 76.2 %; Nucleated Red Blood Cells % 0 %; Platelet Count 211 10^3/cmm (130-400); Red Blood Count 4.64 10^6/uL (4.1-5.3); Red Cell Distribution Width 14.9 % (12.1-15.1); White Blood Count 12.7 10^3/uL (4.0-10.0)
[2023-02-02 20:37] LABS: Alanine Aminotransferase < 5 U/L (0-33); Albumin Level 3.6 g/dL (3.5-5.2); Alkaline Phosphatase 117 U/L (35-105); Aspartate Amino Transferase 8 U/L (0-32); Blood Urea Nitrogen 16 mg/dL (6-20); Calcium 8.9 mg/dL (8.5-10.5); Carbon Dioxide 24 mmol/L (22-29); Chloride 106 mmol/L (98-107); Globulin 2.3 g/dL (1.3-4.6); Glucose 103 mg/dL (65-115); Lipase 23 U/L (13-60); Osmolality Calculated 289 mOsm/kg (285-295); Sodium 139 mmol/L (136-145); Total Bilirubin 0.2 mg/dL (0.15-1.2); Total Protein 5.9 g/dL (6.6-8.7)
[2023-02-02 20:41] LABS: Anion Gap 12.9 (5-19); Potassium 3.9 mmol/L (3.5-5.1)
[2023-02-02 22:24] LABS: Add Urine Microscopic? YES; Bilirubin Urine Neg (Negative); Blood Urine Neg (Negative); Glucose Urine UA Norm (Normal); Ketones Urine Negative (Negative); Leukocyte Esterase Urine 1+ (Negative); Nitrate Urine Negative (Negative); Protein Urine Neg (Negative); Specific Gravity, Urine 1.015 (1.005-1.030); Urine Appearance Hazy (CLEAR); Urine Color Yellow (Yellow); Urobilinogen Urine Neg (Negative); pH Urine 5 (5-7)
[2023-02-02 22:25] LABS: Add Urine Culture? Yes; Amphetamines Screen Urine Negative (Negative); Bacteria Urine 1+ /hpf; Barbiturates Screen Urine Negative (Negative); Benzodiazepines Screen Urine Negative (Negative); Cocaine Screen Urine Negative (Negative); Mucus Urine 2+ /hpf; Opiate Screen Urine Negative (Negative); PCP Screen Urine Negative (Negative); THC Screen Urine Positive (Negative)
[2023-02-02 22:52] VITALS: BP 128/65; PULSE 70; RESP 16; O2SAT 94
== END 2023-02-02 23:16 | disposition home or self-care (01) ==
PROVIDERS: Emergency Provider Emergency Medicine; PCP Registered Nurse
DX: G89.29 Other chronic pain (principal); R10.84 Generalized abdominal pain; F12.90 Cannabis use, unspecified, uncomplicated; F17.210 Nicotine dependence, cigarettes, uncomplicated; J44.9 Chronic obstructive pulmonary disease, unspecified
CPT/HCPCS: 80053; 80306; 81001; 83690; 85025; 87086; 96374; 96375; 99284; J1200; J2405; J7030

== ENCOUNTER 2023-02-26 19:55 | Emergency (ER) | payer MEDICARE, MEDICAID, SELFPAY ==
[2023-02-26 19:57] VITALS: BP 98/68; PULSE 70; RESP 16; TEMP 36.7; O2SAT 97; BMI 29.1
--- NOTE | 2023-02-26 19:57 | ED_ITS ---
HPI - Abdominal Pain General: Chief Complaint: Chest Pain Stated Complaint: Chest Pain Time Seen by Provider: 02/26/23 19:57 History of Present Illness: 57-year-old female comes in today with midsternal chest pain radiating to the back. Patient reports 1 episode of nausea and vomiting. Patient reports that this pain was worse than her usual pain. Patient does have recurrent chest pain and abdominal pain that she has been seen multiple times in the ER. Patient smokes tobacco and marijuana routinely. Patient appears nontoxic. Patient appears in mild to no pain. Associated Symptoms: Reports nausea; Denies fever(s) Review of Systems General: Reports: 10 or more systems reviewed and unremarkable except in HPI and below Const: Denies: fever(s) Card: Reports: chest pain GI: Reports: nausea Musc: Reports: back pain PFSH ED PFSH: Medical History Bladder stone Borderline personality disorder Cannabis dependence, uncomplicated Chronic anxiety Chronic back pain greater than 3 months duration Chronic gastritis without bleeding COPD (chronic obstructive pulmonary disease) Cystitis cystica Dysphagia Esophageal stricture Foreign body in bladder GERD without esophagitis Insomnia Neurogenic bladder Opioid dependence, uncomplicated Psychiatric care Restrictive lung disease Schizoaffective disorder, bipolar type Tardive dyskinesia Tobacco use disorder Urgency incontinence Surgical History H/O bladder repair surgery MESH REPAIR H/O colonoscopy with polypectomy H/O esophagogastroduodenoscopy (09/21/20) H/O: hysterectomy History of appendectomy History of breast biopsy History of foot surgery sx in 2009. Screws placed by Dr. Don. History of ureter stent Hx of cholecystectomy S/P bronchoscopy with biopsy Family History Mother No problems noted. Father No problems noted. Other Asthma Cancer Diabetes Heart disease Social History Smoking and tobacco status: current every day smoker cigarettes Packs smoked per day: 1 Years cigarettes smoked: 20 [ Other cigarette details: Hx of 1 PPD x 20 Years, started at age 27] Quit status (tobacco): considering quitting Second hand smoke exposure: Yes Smoking risk assessment/counseling performed?: No Alcohol intake: never Counseling given: No Substance/Drug Use: former Counseling given: No Lives independently: Yes Household members: spouse Marital status: Number of children: 3 Current occupational status: disabled Do you think of yourself as: Straight/Heterosexual Current gender identity: Female Physical Exam Const: COMMON NORMALS: alert HENMT: COMMON NORMALS: atraumatic and Normal external nose present HEAD & SCALP: atraumatic NOSE: Normal external nose present MOUTH: Normal oral and palatal mucosa present Neck/C-Spine: COMMON NORMALS: full ROM Chest: COMMONS NORMALS: normal inspection of the chest Resp: COMMON NORMALS: normal respiratory effort and clear to auscultation bilaterally AUSCULTATION: clear to auscultation bilaterally Cardio: COMMON NORMALS: regular rate and regular rhythm RATE: regular rate RHYTHM: regular rhythm GI: COMMON NORMALS: Soft to palpation and non-tender PALPATION: Yes Soft to palpation : COMMON NORMALS: Yes no CVA tenderness BLADDER/KIDNEY EXAM: Yes no CVA tenderness Back/Pelvis: COMMON NORMALS: no CVA tenderness Extremity: COMMON NORMALS: normal to inspection Neuro: SENSORIUM/ORIENTATION: Yes alert Skin: COMMON NORMALS: turgor normal GENERAL SKIN EXAM: turgor normal Course ED course: 2113, patient reports minimal relief of pain after a 500 mL of saline and 4 mg of morphine. Reevaluation noted epigastric tenderness at this time. Laboratory values were unremarkable and were stable for patient. We will go ahead and give patient a 1 mg injection of hydromorphone and a GI cocktail and reevaluate. Patient appears to have no severe illness and most likely is his gastric discomfort. Vital Signs: Vital signs: Vital Signs Temperature 98.1 F 02/26/23 19:57 Pulse Rate 76 02/26/23 21:12 Respiratory Rate 16 02/26/23 21:12 Blood Pressure 112/63 02/26/23 21:12 Pulse Oximetry 99 02/26/23 21:12 MDM - Abdominal Pain Medical Decision Making 57-year-old female comes in today with complaints of chest pressure radiating to her back. Patient reports the pain is worse than her usual pain. On exam patient appears nontoxic. Respirations are even lungs are clear to auscultation. Abdomen soft nontender. Chest wall is nontender. Vital signs are unremarkable. Differential diagnosis includes gastritis, pancreatitis, malingering, ACS, pneumonia. Chest x-ray was normal. CBC CMP was unremarkable. Troponin was normal. Believe patient probably has abdominal chronic pain. Mo st likely related to a gastritis. Patient had relief of symptoms with GI cocktail and 1 mg of Dilaudid. Recommended continuing for routine medications and care and following up with primary care for further instructions. Patient reported understanding and agreed to plan. Lab Data 02/26/23 20:18 02/26/23 20:18 Labs/Radiology: Radiology Impressions Chest X-Ray 02/26/23 20:05 IMPRESSION: No acute findings. Laboratory Results WBC 7.41 10^3/uL (3.29-11.43) 02/26/23 20:18 RBC 4.83 10^6/uL (3.85-5.65) 02/26/23 20:18 Hgb 14.70 g/dL (11.27-16.99) 02/26/23 20:18 Hct 43.9 % (36-47) 02/26/23 20:18 MCV 90.9 fl (85-98) 02/26/23 20:18 MCH 30.4 pg (27-33) 02/26/23 20:18 MCHC 33.5 g/dL (30-55) 02/26/23 20:18 RDW 14.4 % (12.1-15.1) 02/26/23 20:18 Plt Count 186 10^3/cmm (157-399) 02/26/23 20:18 MPV 10.6 fL (7.4-10.4) H 02/26/23 20:18 Neut % (Auto) 55.4 % 02/26/23 20:18 Lymph % (Auto) 32.0 % 02/26/23 20:18 [place] % (Auto) 7.4 % 02/26/23 20:18 Eos % (Auto) 4.0 % 02/26/23 20:18 Baso % (Auto) 1.1 % 02/26/23 20:18 Neut # (Auto) 4.10 10^3/uL (1.8-7.7) 02/26/23 20:18 Lymph # (Auto) 2.4 10^3/uL (0.8-4.8) 02/26/23 20:18 [place] # (Auto) 0.6 10^3/uL (0.2-0.9) 02/26/23 20:18 Eos # (Auto) 0.3 10^3/uL (0.0-0.8) 02/26/23 20:18 Baso # (Auto) 0.1 10^3/uL (0.0-0.1) 02/26/23 20:18 Nucleated RBC % (auto) 0 % 02/26/23 20:18 Nucleated RBCs # 0.0 /100WBC 02/26/23 20:18 Sodium 141 mmol/L (136-145) 02/26/23 20:18 Potassium 4.0 mmol/L (3.5-5.1) 02/26/23 20:18 Chloride 109 mmol/L (98-107) H 02/26/23 20:18 Carbon Dioxide 21 mmol/L (22-29) L 02/26/23 20:18 Anion Gap 15.0 (5-19) 02/26/23 20:18 BUN 14 mg/dL (6-20) 02/26/23 20:18 Creatinine 1.0 mg/dL (0.5-0.9) H 02/26/23 20:18 GFR Calculation 57.6 mL/min (90-130) L 02/26/23 20:18 Glucose 108 mg/dL (65-115) 02/26/23 20:18 Calculated Osmolality 293 mOsm/kg (285-295) 02/26/23 20:18 Calcium 9.0 mg/dL (8.5-10.5) 02/26/23 20:18 Total Bilirubin 0.3 mg/dL (0.15-1.2) 02/26/23 20:18 AST 9 U/L (0-32) 02/26/23 20:18 ALT 6 U/L (0-33) 02/26/23 20:18 Alkaline Phosphatase 111 U/L (35-105) H 02/26/23 20:18 Troponin T Baseline 6 ng/L (0-10) 02/26/23 20:18 Total Protein 5.8 g/dL (6.6-8.7) L 02/26/23 20:18 Albumin 4.1 g/dL (3.5-5.2) 02/26/23 20:18 Globulin 1.7 g/dL (1.3-4.6) 02/26/23 20:18 Lipase 23 U/L (13-60) 02/26/23 20:18 Urine Color Yellow (Yellow) 02/26/23 20:52 Urine Appearance Cloudy (CLEAR) A 02/26/23 20:52 Urine pH 5 (5-7) 02/26/23 20:52 Ur Specific [place] 1.025 (1.005-1.030) 02/26/23 20:52 Urine Protein Trace (Negative) 02/26/23 20:52 Urine Glucose (UA) Norm (Normal) 02/26/23 20:52 Urine Ketones Negative (Negative) 02/26/23 20:52 Urine Blood Neg (Negative) 02/26/23 20:52 Urine Nitrate Negative (Negative) 02/26/23 20:52 Urine Bilirubin Neg (Negative) 02/26/23 20:52 Urine Urobilinogen Neg mg/dL (Negative) 02/26/23 20:52 Ur Leukocyte Esterase Trace (Negative) H 02/26/23 20:52 Urine RBC 0-4 /hpf (0-2) H 02/26/23 20:52 Urine WBC 10-15 /hpf (0-5) H 02/26/23 20:52 Ur Squamous Epith Cells 25-40 /hpf (0-5) H 02/26/23 20:52 Calcium Oxalate Crystal 1 /hpf 02/26/23 20:52 Amorphous Sediment Not Reportable 02/26/23 20:52 Urine Bacteria Trace /hpf (NONE) 02/26/23 20:52 Urine Mucus 2+ /hpf 02/26/23 20:52 EKG Data EKG 1: EKG interpretation date: 02/26/23 EKG interpretation time: 20:27 Interpretation: Regular rhythm 62 bpm, no ST elevation or ectopy is noted. Prior exam was not available for immediate comparison. Computer generated interpretation: Sinus rhythm, incomplete right bundle branch block, borderline EKG, unconfirmed report. Discharge Plan Discharge Patient Disposition: Home Clinical Impression: Chest pain Qualifiers: Chest pain type: unspecified Qualified Code(s): R07.9 - Chest pain, unspecified Gastritis Qualifiers: Gastritis type: other gastritis Chronicity: unspecified Gastritis bleeding: presence of bleeding unspecified Qualified Code(s): K29.60 - Other gastritis without bleeding Condition: Stable Prescriptions: No Action lamotrigine 200 mg tablet 200 mg PO DAILY@06 Qty: 30 0RF Rx Instructions: Take one tablet by mouth every morning trazodone 100 mg tablet 200 mg PO DAILY PRN (Reason: insomnia) Qty: 60 0RF Rx Instructions: Take two tablets at bedtime, if needed for insomnia; stop 150 mg dose Trintellix 10 mg tablet 10 mg PO DAILY Qty: 30 0RF Rx Instructions: Take on tablet by mouth once daily in the morning; stop Celexa nystatin 100,000 unit/gram powder 1 applic topical BID Qty: 30 0RF Rx Instructions: apply locally to B/L groin folds albuterol sulfate 90 mcg/actuation HFA aerosol inhaler See Rx Instructions .ROUTE .COMPLEX Qty: 8.5 0RF Dose Instruction: INHALE 2 PUFFS BY MOUTH EVERY 6 HOURS NEEDED FOR SHORTNESS OF BREATH OR WHEEZING Rx Instructions: INHALE 2 PUFFS BY MOUTH EVERY 6 HOURS NEEDED FOR SHORTNESS OF BREATH OR WHEEZING pantoprazole 40 mg tablet,delayed release (DR/EC) See Rx Instructions .ROUTE .COMPLEX Qty: 90 0RF Dose Instruction: TAKE 1 TABLET BY MOUTH DAILY AT 6 AM Rx Instructions: TAKE 1 TABLET BY MOUTH DAILY AT 6 AM montelukast [Singulair] 10 mg tablet 10 mg PO DAILY 90 Days Qty: 90 0RF Ingrezza 80 mg capsule 80 mg PO .hs Qty: 30 2RF Rx Instructions: Take one capsule by mouth every morning acetaminophen 500 mg Tablet 1,000 mg PO Q6H PRN (Reason: Pain) Compazine 25 mg suppository 25 mg ME BID PRN (Reason: nausea and vomiting) Qty: 20 0RF ondansetron 4 mg tablet,disintegrating 4 mg PO Q8H PRN (Reason: nausea and vomiting) Qty: 25 0RF Discharge Orders: Discharge ED (Routine); Ordered 02/26/23 Ordered By: Roney Vann Referrals: Daar Tavera FNP [Primary Care Provider] - Patient Instructions: Chest Pain (ED) Activity Restrictions/Additional Instructions: Continue routine care. Follow-up with primary care for further instructions. Return to ED for new concerns. Coding Level of Care Code ED Riveting Machine Operator Automatic for Shellie Guallpa
--- NOTE | 2023-02-26 20:05 | ECG_ITS ---
[facility] Test Date: 2023-02-26 Pat Name: Latesha Wilhelm Department: Room: Gender: Female Variety Saw Operator: : 1965 Requested By: Roney Booker Order Number: [id number] Alice MD: Temo Tony M.D. Measurements Intervals [place] Rate: 62 P: 59 AK: 158 QRS: 29 QRSD: 94 T: 47 QT: 439 QTc: 449 Interpretive Statements SINUS RHYTHM INCOMPLETE RIGHT BUNDLE BRANCH BLOCK [90+ ms QRS DURATION, TERMINAL R IN V1/V2, 40+ ms S IN I/aVL/V4/V5/V6] Compared to ECG 01/01/2023 23:08:08 Incomplete right bundle-branch block now present Indeterminate axis no longer present Electronically Signed On 02-27-2023 16:02:16 CDT by Temo Tony M.D. [id number]
--- NOTE | 2023-02-26 20:05 | XRR_ITS ---
PROCEDURE INFORMATION: Exam: XR Chest Exam date and time: 02/26/2023 8:10 PM Age: 57 years old Clinical indication: Chest pressure; Prior surgery; Surgery date: 6+ months; Surgery type: Gb; Patient HX: C/O chest pain. History of copd. TECHNIQUE: Imaging protocol: Radiologic exam of the chest. Views: 1 view. COMPARISON: CR XR chest 1V portable [id number] 12/19/2022 7:38 PM FINDINGS: Lungs: Lungs are clear. Pleural spaces: No pleural effusion. No pneumothorax. Heart/Mediastinum: Normal cardiomediastinal silhouette. Bones/joints: No acute osseous abnormality. XR/XR chest 1V portable [id number] IMPRESSION: No acute findings.
[2023-02-26 20:26] LABS: Basophils # 0.1 10^3/uL (0.0-0.1); Basophils % 1.1 %; Eosinophils # 0.3 10^3/uL (0.0-0.8); Hematocrit 43.9 % (36-47); Lymphocytes # 2.4 10^3/uL (0.8-4.8); Mean Corpuscular HGB Conc 33.5 g/dL (30-55); Mean Corpuscular Hemoglobin 30.4 pg (27-33); Mean Corpuscular Volume 90.9 fl (85-98); Mean Platelet Volume 10.6 fL (7.4-10.4); Monocytes # 0.6 10^3/uL (0.2-0.9); Monocytes % 7.4 %; Neutrophils % 55.4 %; Nucleated Red Blood Cells % 0 %; Platelet Count 186 10^3/cmm (157-399); Red Blood Count 4.83 10^6/uL (3.85-5.65); Red Cell Distribution Width 14.4 % (12.1-15.1); White Blood Count 7.41 10^3/uL (3.29-11.43)
[2023-02-26] MEDS: sodium chloride 0.9% 500 ML 999 ML IV (20:26)
[2023-02-26] MEDS: morphine 4 mg/mL SDV 1 mL IVP (20:26)
[2023-02-26 21:03] LABS: Troponin(5th) Baseline 6 ng/L (0-10)
[2023-02-26 21:04] LABS: Alanine Aminotransferase 6 U/L (0-33); Albumin Level 4.1 g/dL (3.5-5.2); Alkaline Phosphatase 111 U/L (35-105); Aspartate Amino Transferase 9 U/L (0-32); Blood Urea Nitrogen 14 mg/dL (6-20); Carbon Dioxide 21 mmol/L (22-29); Chloride 109 mmol/L (98-107); Globulin 1.7 g/dL (1.3-4.6); Glomerular Filtration Rate 57.6 mL/min (90-130); Glucose 108 mg/dL (65-115); Lipase 23 U/L (13-60); Osmolality Calculated 293 mOsm/kg (285-295); Sodium 141 mmol/L (136-145); Total Bilirubin 0.3 mg/dL (0.15-1.2); Total Protein 5.8 g/dL (6.6-8.7)
[2023-02-26 21:12] VITALS: BP 112/63; PULSE 76; RESP 16; O2SAT 99
[2023-02-26 21:12] LABS: Add Urine Microscopic? YES; Bilirubin Urine Neg (Negative); Blood Urine Neg (Negative); Glucose Urine UA Norm (Normal); Ketones Urine Negative (Negative); Leukocyte Esterase Urine Trace (Negative); Nitrate Urine Negative (Negative); Protein Urine Trace (Negative); RBC Urine 0-4 /hpf (0-2); Specific Gravity, Urine 1.025 (1.005-1.030); Urine Appearance Cloudy (CLEAR); Urine Color Yellow (Yellow); Urobilinogen Urine Neg (Negative); pH Urine 5 (5-7)
[2023-02-26 21:13] LABS: Add Urine Culture? No; Bacteria Urine TRACE /hpf; Calcium Oxalate Crystals Urine 1 /hpf; Mucus Urine 2+ /hpf; Squamous Epithelial Cell Urine 25-40 /hpf (0-5)
[2023-02-26] MEDS: lidocaine 2% viscous 15 ML, aluminum-mag hydrox-simethicon 30 ML, sucralfate oral liq 1 GM PO (21:30)
[2023-02-26] MEDS: HYDROmorphone 1 mg/mL INJ 1 mL IVP (21:31)
[2023-02-26 21:58] VITALS: BP 112/63; PULSE 76; RESP 16; TEMP 36.7; O2SAT 99
--- NOTE | 2023-02-26 22:05 | ECG_ITS ---
[facility] Test Date: 2023-02-26 Pat Name: Latesha Wilhelm Department: Room: Gender: Female Customer Quality Specialist: : 1965 Requested By: Roney Booker Order Number: [id number] Alice MD: Temo Tony M.D. Measurements Intervals [place] Rate: 61 P: 55 [place]: 163 QRS: 52 QRSD: 96 T: 51 QT: 434 QTc: 440 Interpretive Statements SINUS RHYTHM POSSIBLE RIGHT VENTRICULAR CONDUCTION DELAY [RSR (QR) IN V1/V2] Compared to ECG 01/01/2023 23:08:08 Indeterminate axis no longer present Electronically Signed On 02-27-2023 16:03:54 CDT by Temo Tony M.D. [id number]
== END 2023-02-26 21:58 | disposition home or self-care (01) ==
PROVIDERS: Emergency Provider Nurse Practitioner Family; PCP Registered Nurse
DX: R07.89 Other chest pain (principal); K29.60 Other gastritis without bleeding
CPT/HCPCS: 36415; 71045; 80053; 81001; 83690; 84484; 85025; 93005; 96361; 96374; 96375; 99285; J1170; J2270; J7040

== ENCOUNTER 2023-03-08 07:14 | Outpatient (CLI) | payer MEDICARE, MEDICAID, SELFPAY ==
--- NOTE | 2023-03-08 07:32 | MR_ITS ---
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 TECHNIQUE: 3-D MR angiography is performed of the [place] of [place]. All images are reviewed including source images. Distal vertebral and basilar arteries are intact with no significant stenosis or plaque. Posterior ce rebral arteries are normal course and caliber. RIGHT posterior communicating artery is dominant. Hypo plastic or absent LEFT posterior communicating artery. Intracranial portion of the internal carotid arteries are normal course and caliber. No significant a therosclerosis, stenosis or aneurysm identified. Middle and anterior cerebral arteries are both paten t with no significant disease. Anterior communicating artery is also normal. IMPRESSION: 1. No significant atherosclerotic disease, strictures or aneurysms. 2. Absent or hypoplastic LEFT posterior communicating artery. Most likely normal variant.
--- NOTE | 2023-03-08 07:32 | MR_ITS ---
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 TECHNIQUE: MR angiogram carotid arteries, noncontrast. Right: No stenosis or occlusions within the cervical portion of the common, internal and external car otid arteries. Bifurcation intact. Left: No stenosis or occlusion within the cervical portions of the common, internal or external carot id arteries. Bifurcation intact. Subclavian Arteries: Artifact through the upper thorax due to motion. Poor visualization of the subcl celia arteries but they are patent. Vertebral Arteries: Vertebral arteries are patent. Codominant vertebral arteries. IMPRESSION: No significant cervical carotid artery stenosis or occlusion.
--- NOTE | 2023-03-08 07:32 | MR_ITS ---
WS: [id number] MRI BRAIN WITHOUT CONTRAST HISTORY: G24.01 - Drug induced subacute dyskinesia COMPARISON: None available. TECHNIQUE: Diffusion imaging, multiplanar T1, T2 and FLAIR imaging obtained. Patient elected not to continue with postcontrast imaging due to severe headache. No evidence for acute infarct or hemorrhage. [place]-white matter differentiation is normal. Mild parenchymal volume loss. No prior infarcts. No significant small vessel ischemic disease. Ventricles and extra-axial spaces are normal. No inferior displacement of cerebellar tonsils. The sella turcica and pituitary gland are unremarkabl e. Dural venous sinuses and [place] demonstrate no abnormality on this unenhanced studies. Paranasal sinuses: Minimal mucoperiosteal thickening in the frontal sinuses. No air-fluid levels. Mastoid air cells: Normal. Calvarium and scalp: Intact. IMPRESSION: 1. No acute infarct or prior infarct. 2. Very mild volume loss. No small vessel ischemic disease. 3. Normal sized ventricles. No hemorrhage.
== END 2023-03-08 07:15 | disposition home or self-care (01) ==
LOC: RAD 07:15
PROVIDERS: PCP Registered Nurse; Visit Provider Specialist
DX: G24.01 Drug induced subacute dyskinesia (principal)
CPT/HCPCS: 70544; 70547; 70551

== ENCOUNTER 2023-03-11 23:49 | Emergency (ER) | payer MEDICARE, MEDICAID, SELFPAY ==
[2023-03-11 23:51] VITALS: BP 129/74; PULSE 74; RESP 18; TEMP 36.6; O2SAT 95; BMI 28.3
[2023-03-12 01:08] VITALS: RESP 18
[2023-03-12] MEDS: HYDROmorphone 1 mg/mL INJ 1 mL 2 MG IM (01:08)
[2023-03-12] MEDS: promethazine 25 mg/mL SDV 1 mL 50 MG IM (01:09)
[2023-03-12] MEDS: lidocaine 2% viscous 15 ML, aluminum-mag hydrox-simethicon 30 ML, sucralfate oral liq 1 GM PO (01:13)
[2023-03-12 01:16] VITALS: BP 104/42; PULSE 70; RESP 18; O2SAT 96
--- NOTE | 2023-03-12 01:17 | W.ED.ABDPA2 ---
HPI - Abdominal Pain General: Chief Complaint: Abdominal Pain Stated Complaint: ABD PAIN Time Seen by Provider: 03/12/23 00:04 History of Present Illness: 57-year-old female with a history of chronic abdominal pain. She is well-known to the ER for these complaints. She presents with periumbilical abdominal pain, and an episode of vomiting at home. She presents by EMS. She did not take anything at home. No vomiting here. MD elicited complaint: abdominal pain Associated Symptoms: Reports chills, nausea and vomiting; Denies diarrhea and fever(s) Review of Systems Const: Reports: chills; Denies: fever(s) ENMT: Reports: throat pain and uvular edema Card: Denies: chest pain or palpitations Resp: Denies: dyspnea, productive cough or non-productive cough GI: Reports: abdominal pain, nausea and vomiting; Denies: diarrhea : Denies: flank pain Skin/Breast: Denies: rash Neuro: Denies: headache(s) Psych: Reports: anxiety PFSH ED PFSH: Medical History Bladder stone Borderline personality disorder Cannabis dependence, uncomplicated Chronic anxiety Chronic back pain greater than 3 months duration Chronic gastritis without bleeding COPD (chronic obstructive pulmonary disease) Cystitis cystica Dysphagia Esophageal stricture Foreign body in bladder GERD without esophagitis Insomnia Neurogenic bladder Opioid dependence, uncomplicated Psychiatric care Restrictive lung disease Schizoaffective disorder, bipolar type Tardive dyskinesia Tobacco use disorder Urgency incontinence Surgical History H/O bladder repair surgery MESH REPAIR H/O colonoscopy with polypectomy H/O esophagogastroduodenoscopy (09/21/20) H/O: hysterectomy History of appendectomy History of breast biopsy History of foot surgery sx in 2009. Screws placed by Dr. Don. History of ureter stent Hx of cholecystectomy S/P bronchoscopy with biopsy Family History Mother No problems noted. Father No problems noted. Other Asthma Cancer Diabetes Heart disease Social History Smoking and tobacco status: current every day smoker cigarettes Packs smoked per day: 1 Years cigarettes smoked: 20 [ Other cigarette details: Hx of 1 PPD x 20 Years, started at age 27] Quit status (tobacco): considering quitting Second hand smoke exposure: Yes Smoking risk assessment/counseling performed?: No Alcohol intake: never Counseling given: No Substance/Drug Use: former Counseling given: No Lives independently: Yes Household members: spouse Marital status: Number of children: 3 Current occupational status: disabled Do you think of yourself as: Straight/Heterosexual Current gender identity: Female Physical Exam Const: COMMON NORMALS: alert GENERAL APPEARANCE: cooperative and anxious; not ill appearing and not frail appearing ORIENTATION/CONSCIOUSNESS: Yes awake, Yes oriented to person, Yes oriented to place and Yes oriented to time HENMT: COMMON NORMALS: normocephalic, external ears normal and Normal external nose present HEAD & SCALP: normocephalic FACE & SINUS: normal facial exam NOSE: Normal external nose present and No nasal discharge present EXTERNAL EAR: Yes external ears normal MOUTH: tongue normal TEETH & GINGIVA: no abnormal tooth and associated gingiva THROAT: uvular edema Eye: COMMON NORMALS: Equal, round and reactive pupils present, EOMs intact bilaterally and conjunctivae normal EYELID: eyelids normal CONJUNCTIVA: Yes conjunctivae normal PUPIL: Yes Equal, round and reactive pupils present Neck/C-Spine: COMMON NORMALS: full ROM GENERAL: Yes anterior neck swelling and No tracheal deviation CERVICAL SPINE: Yes normal cervical lordosis, No Cervical spine tenderness, No step off deformity, No Paracervical muscle tenderness and No Paracervical spasm Chest: COMMONS NORMALS: normal inspection of the chest CHEST: Yes Symmetrical chest wall rise and No tenderness Resp: COMMON NORMALS: clear to auscultation bilaterally EFFORT & INSPECTION: No tachypneic, No respiratory distress, No retractions, No uses accessory muscles and No tracheal deviation AUSCULTATION: clear to auscultation bilaterally, no rhonchi, no wheezes and lung sounds not diminished Cardio: COMMON NORMALS: regular rate and regular rhythm RATE: regular rate RHYTHM: regular rhythm HEART SOUNDS: no murmurs PERIPHERAL PULSES: radial pulses present GI: INSPECTION: No abdominal distension AUSCULTATION: No Hyperactive bowel sounds present and No Hypoactive bowel sounds present PALPATION: No Guarding due to palpation present (GI) and No Rigid due to palpation PERCUSSION: no dullness to percussion and no tympanic to percussion : COMMON NORMALS: Yes no CVA tenderness BLADDER/KIDNEY EXAM: Yes no CVA tenderness Back/Pelvis: COMMON NORMALS: no CVA tenderness PELVIS: Yes no pain with anterior-posterior compression and Yes no pain with lateral compression Neuro: SENSORIUM/ORIENTATION: Yes alert, Yes oriented to person, Yes oriented to place and Yes oriented to time Psych: COMMON NORMALS: mental status grossly normal and speech normal SPEECH: Yes normal speech Skin: COMMON NORMALS: no rashes or lesions noted GENERAL SKIN EXAM: no rashes or lesions noted Course Vital Signs: Vital signs: Vital Signs Temperature 98 F 03/11/23 23:51 Pulse Rate 73 03/12/23 01:57 Respiratory Rate 18 03/12/23 01:57 Blood Pressure 104/51 03/12/23 01:57 Pulse Oximetry 95 03/12/23 01:57 Oxygen Delivery Me thod Room Air 03/12/23 01:16 MDM - Abdominal Pain Medical Decision Making Patient with same complaint she has been seen multiple times for in the past. She appears non-ill, nontoxic. Her vital signs are stable. She is a difficult IV stick. She is given 2 mg of IM Dilaudid for pain, 50 mg of IM promethazine for nausea, and allowed discharged to follow a liquid diet for the next 24 hours and then add food as tolerated. Return for worsening symptoms. No radiology studies performed this visit Discharge Plan Discharge Patient Disposition: Home Clinical Impression: Abdominal pain Condition: Stable Prescriptions: No Action Trintellix 20 mg tablet 20 mg PO DAILY Qty: 30 0RF Rx Instructions: Take one tablet once daily; stop 10 mg dose nystatin 100,000 unit/gram powder 1 applic topical BID Qty: 30 0RF Rx Instructions: apply locally to B/L groin folds albuterol sulfate 90 mcg/actuation HFA aerosol inhaler See Rx Instructions .ROUTE .COMPLEX Qty: 8.5 0RF Dose Instruction: INHALE 2 PUFFS BY MOUTH EVERY 6 HOURS NEEDED FOR SHORTNESS OF BREATH OR WHEEZING Rx Instructions: INHALE 2 PUFFS BY MOUTH EVERY 6 HOURS NEEDED FOR SHORTNESS OF BREATH OR WHEEZING pantoprazole 40 mg tablet,delayed release (DR/EC) See Rx Instructions .ROUTE .COMPLEX Qty: 90 0RF Dose Instruction: TAKE 1 TABLET BY MOUTH DAILY AT 6 AM Rx Instructions: TAKE 1 TABLET BY MOUTH DAILY AT 6 AM montelukast [Singulair] 10 mg tablet 10 mg PO DAILY 90 Days Qty: 90 0RF Ingrezza 80 mg capsule 80 mg PO .hs Qty: 30 2RF Rx Instructions: Take one capsule by mouth every morning trazodone 100 mg tablet 200 mg PO DAILY PRN (Reason: insomnia) Qty: 60 0RF Rx Instructions: Take two tablets at bedtime, if needed for insomnia lamotrigine 200 mg tablet 200 mg PO DAILY@06 Qty: 30 0RF Rx Instructions: Take one tablet by mouth every morning acetaminophen 500 mg Tablet 1,000 mg PO Q6H PRN (Reason: Pain) Compazine 25 mg suppository 25 mg SD BID PRN (Reason: nausea and vomiting) Qty: 20 0RF Discharge Orders: Discharge ED (Routine); Ordered 03/12/23 Ordered By: Chvio Deleon Referrals: Dara Tavera FNP [Primary Care Provider] - 1-3 days Patient Instructions: Abdominal Pain (ED), Opioid Safety, Pain Management Activity Restrictions/Additional Instructions: Return for fever, vomiting liquids, blood in your stool, other concerning symptoms Coding Level of Care Code ED Undergraduate Internship for Shellie Guallpa
[2023-03-12 01:57] VITALS: BP 104/51; PULSE 73; RESP 18; O2SAT 95
== END 2023-03-12 02:01 | disposition home or self-care (01) ==
PROVIDERS: Emergency Provider Emergency Medicine; PCP Registered Nurse
DX: R10.33 Periumbilical pain (principal); F17.210 Nicotine dependence, cigarettes, uncomplicated; J44.9 Chronic obstructive pulmonary disease, unspecified
CPT/HCPCS: 96372; 99284; J1170; J2550

== ENCOUNTER 2023-04-01 21:07 | Emergency (ER) | payer MEDICARE, MEDICAID, SELFPAY ==
[2023-04-01 21:08] VITALS: BP 116/73; PULSE 92; RESP 16; TEMP 36.7; O2SAT 97; BMI 28.3
--- NOTE | 2023-04-01 21:29 | ED_ITS ---
HPI - Abdominal Pain General: Chief Complaint: Abdominal Pain Stated Complaint: abd pain Time Seen by Provider: 04/01/23 21:17 Source: patient and EMS Mode of arrival: EMS Limitations: no limitations History of Present Illness: 57-year-old female is very well-known to the ER. She has a history of chronic abdominal pain she states she has been having pain for the last 3 days with vomiting and diarrhea she denies any worsening improving factors rates her pain a 5 out of 10 currently Associated Symptoms: Reports diarrhea, nausea and vomiting; Denies chills, dysuria and fever(s) Review of Systems Const: Denies: fever(s) or chills Eyes: Denies: eye discomfort ENMT: Denies: throat pain or dental pain Card: Denies: chest pain Resp: Denies: dyspnea GI: Reports: abdominal pain, nausea, vomiting and diarrhea : Denies: dysuria Musc: Denies: neck pain or back pain Skin/Breast: Denies: rash Neuro: Denies: headache(s) PFS ED PFSH: Medical History Bladder stone Borderline personality disorder Cannabis dependence, uncomplicated Chronic anxiety Chronic back pain greater than 3 months duration Chronic gastritis without bleeding COPD (chronic obstructive pulmonary disease) Cystitis cystica Dysphagia Esophageal stricture Foreign body in bladder GERD without esophagitis Insomnia Neurogenic bladder Opioid dependence, uncomplicated Psychiatric care Restrictive lung disease Schizoaffective disorder, bipolar type Tardive dyskinesia Tobacco use disorder Urgency incontinence Surgical History H/O bladder repair surgery MESH REPAIR H/O colonoscopy with polypectomy H/O esophagogastroduodenoscopy (09/21/20) H/O: hysterectomy History of appendectomy History of breast biopsy History of foot surgery sx in 2009. Screws placed by Dr. Don. History of ureter stent Hx of cholecystectomy S/P bronchoscopy with biopsy Family History Mother No problems noted. Father No problems noted. Other Asthma Cancer Diabetes Heart disease Social History Smoking and tobacco/nicotine status: current every day tobacco/nicotine user cigarettes Packs smoked per day: 1 Years cigarettes smoked: 20 [ Other cigarette details: Hx of 1 PPD x 20 Years, started at age 27] Quit status (tobacco/nicotine): considering quitting Second hand smoke exposure: Yes Alcohol intake: never Substance/Drug Use: former Lives independently: Yes Household members: spouse Marital status: Number of children: 3 Current occupational status: disabled Do you think of yourself as: Straight/Heterosexual Current gender identity: Female Physical Exam Const: COMMON NORMALS: no acute distress, patient oriented x3 and healthy appearing HENMT: COMMON NORMALS: normocephalic and atraumatic HEAD & SCALP: normocephalic and atraumatic Eye: COMMON NORMALS: Equal, round and reactive pupils present and EOMs intact bilaterally PUPIL: Yes Equal, round and reactive pupils present Neck/C-Spine: COMMON NORMALS: full ROM and supple Chest: COMMONS NORMALS: normal inspection of the chest and normal palpation of entire chest wall Resp: COMMON NORMALS: normal respiratory effort, No retractions, No use of accessory muscles and clear to auscultation bilaterally AUSCULTATION: clear to auscultation bilaterally Cardio: COMMON NORMALS: regular rate, regular rhythm and No murmurs present (Cardio) RATE: regular rate RHYTHM: regular rhythm GI: COMMON NORMALS: Normal to inspection, nondistended, normoactive bowel so unds present, Soft to palpation, non-tender and no masses PALPATION: Yes Soft to palpation Extremity: COMMON NORMALS: normal to inspection and full ROM Neuro: COMMON NORMALS: patient oriented x3, moves all extremities and no focal motor deficits Psych: COMMON NORMALS: mental status grossly normal, Normal thought process present and cooperative THOUGHT PROCESS: Normal thought process present Skin: COMMON NORMALS: no rashes or lesions noted and no wounds GENERAL SKIN EXAM: no rashes or lesions noted Course Vital Signs: Vital signs: Vital Signs Temperature 98.0 F 04/01/23 21:08 Pulse Rate 70 04/01/23 21:50 Respiratory Rate 20 H 04/01/23 21:50 Blood Pressure 137/79 04/01/23 21:50 Pulse Oximetry 97 04/01/23 21:50 Oxygen Delivery Me thod Room Air 04/01/23 21:50 MDM - Abdominal Pain Medical Decision Making Patient presents here with abdominal pain is chronic in nature her blood work here is normal abdominal exam is benign she feels much improved we will prescribe her Zofran for home she is stable for discharge she is to follow-up with PCP and return if worsening Medical Records I reviewed the patient's medical records. Lab Data I reviewed the patient's lab results. 04/01/23 21:04/01/23 21: Labs/Radiology: Laboratory Results WBC 10.79 10^3/uL (3.29-11.43) 04/01/23 21: RBC 4.70 10^6/uL (3.85-5.65) 04/01/23 21: Hgb 14.90 g/dL (11.27-16.99) 04/01/23 21: Hct 43.7 % (36-47) 04/01/23: MCV 93.0 fl (85-98) 04/01/23 21: MCH 31.7 pg (27-33) 04/01/23: MCHC 34.1 g/dL (30-55) 04/01/23: RDW 15.2 % (12.1-15.1) H 04/01/23: Plt Count 223 10^3/cmm (157-399) 04/01/23 21: MPV 10.1 fL (7.4-10.4) 04/01/23: Neut % (Auto) 65.5 % 04/01/23: Lymph % (Auto) 23.3 % 04/01/23 21: Harvey % (Auto) 6.0 % 04/01/23: Eos % (Auto) 3.7 % 04/01/23: Baso % (Auto) 1.2 % 04/01/23: Neut # (Auto) 7.07 10^3/uL (1.8-7.7) 04/01/23: Lymph # (Auto) 2.5 10^3/uL (0.8-4.8) 04/01/23: Harvey # (Auto) 0.7 10^3/uL (0.2-0.9) 04/01/23 21: Eos # (Auto) 0.4 10^3/uL (0.0-0.8) 04/01/23 21: Baso # (Auto) 0.1 10^3/uL (0.0-0.1) 04/01/23 21:25 Nucleated RBC % (auto) 0 % 04/01/23 21:25 Nucleated RBCs # 0.0 /100WBC 04/01/23 21:25 Sodium 138 mmol/L (136-145) 04/01/23 21:25 Potassium 3.7 mmol/L (3.5-5.1) 04/01/23 21:25 Chloride 104 mmol/L (98-107) 04/01/23 21:25 Carbon Dioxide 22 mmol/L (22-29) 04/01/23 21:25 Anion Gap 15.7 (5-19) 04/01/23 21:25 BUN 16 mg/dL (6-20) 04/01/23 21:25 Creatinine 1.2 mg/dL (0.5-0.9) H 04/01/23 21:25 GFR Calculation 46.6 mL/min (90-130) L 04/01/23 21:25 Glucose 112 mg/dL (65-115) 04/01/23 21:25 Calculated Osmolality 288 mOsm/kg (285-295) 04/01/23 21:25 Calcium 9.3 mg/dL (8.5-10.5) 04/01/23 21:25 Total Bilirubin 0.3 mg/dL (0.15-1.2) 04/01/23 21:25 AST 13 U/L (0-32) 04/01/23 21:25 ALT 13 U/L (0-33) 04/01/23 21:25 Alkaline Phosphatase 121 U/L (35-105) H 04/01/23 21:25 Total Protein 6.6 g/dL (6.6-8.7) 04/01/23 21:25 Albumin 4.2 g/dL (3.5-5.2) 04/01/23 21:25 Globulin 2.4 g/dL (1.3-4.6) 04/01/23 21:25 Lipase 24 U/L (13-60) 04/01/23 21:25 No radiology studies performed this visit Discharge Plan Discharge Patient Disposition: Home Clinical Impression: Abdominal pain Condition: Stable Prescriptions: New ondansetron 4 mg tablet,disintegrating 4 mg PO Q6H PRN (Reason: nausea and vomiting) Qty: 14 0RF No Action Trintellix 20 mg tablet 20 mg PO DAILY Qty: 30 0RF Rx Instructions: Take one tablet once daily; stop 10 mg dose nystatin 100,000 unit/gram powder 1 applic topical BID Qty: 30 0RF Rx Instructions: apply locally to B/L groin folds albuterol sulfate 90 mcg/actuation HFA aerosol inhaler See Rx Instructions .ROUTE .COMPLEX Qty: 8.5 0RF Dose Instruction: INHALE 2 PUFFS BY MOUTH EVERY 6 HOURS NEEDED FOR SHORTNESS OF BREATH OR WHEEZING Rx Instructions: INHALE 2 PUFFS BY MOUTH EVERY 6 HOURS NEEDED FOR SHORTNESS OF BREATH OR WHEEZING montelukast [Singulair] 10 mg tablet 10 mg PO DAILY 90 Days Qty: 90 0RF Ingrezza 80 mg capsule 80 mg PO .hs Qty: 30 2RF Rx Instructions: Take one capsule by mouth every morning trazodone 100 mg tablet 200 mg PO DAILY PRN (Reason: insomnia) Qty: 60 0RF Rx Instructions: Take two tablets at bedtime, if needed for insomnia lamotrigine 200 mg tablet 200 mg PO DAILY@06 Qty: 30 0RF Rx Instructions: Take one tablet by mouth every morning pantoprazole 40 mg tablet,delayed release (DR/EC) See Rx Instructions .ROUTE .COMPLEX Qty: 90 0RF Dose Instruction: TAKE 1 TABLET BY MOUTH DAILY AT 6 AM Rx Instructions: TAKE 1 TABLET BY MOUTH DAILY AT 6 AM acetaminophen 500 mg Tablet 1,000 mg PO Q6H PRN (Reason: Pain) Compazine 25 mg suppository 25 mg IA BID PRN (Reason: nausea and vomiting) Qty: 20 0RF Discharge Orders: Discharge ED (Routine); Ordered 04/01/23 Ordered By: Damien Urbina Referrals: Dara Tavera, RETAIL SALES DIRECTOR [Primary Care Provider] - 1-3 days Discharge Diet: Advance as tolerated Discharge Activity: Resume usual activity Patient Instructions: Abdominal Pain (ED) Coding Level of Care Code ED Professor Of Food Biochemistry for Shellie Guallpa
[2023-04-01 21:36] LABS: Basophils # 0.1 10^3/uL (0.0-0.1); Basophils % 1.2 %; Eosinophils # 0.4 10^3/uL (0.0-0.8); Eosinophils % 3.7 %; Hematocrit 43.7 % (36-47); Lymphocytes # 2.5 10^3/uL (0.8-4.8); Lymphocytes % 23.3 %; Mean Corpuscular HGB Conc 34.1 g/dL (30-55); Mean Corpuscular Hemoglobin 31.7 pg (27-33); Mean Platelet Volume 10.1 fL (7.4-10.4); Monocytes # 0.7 10^3/uL (0.2-0.9); Neutrophils # 7.07 10^3/uL (1.8-7.7); Neutrophils % 65.5 %; Nucleated Red Blood Cells % 0 %; Platelet Count 223 10^3/cmm (157-399); Red Cell Distribution Width 15.2 % (12.1-15.1); White Blood Count 10.79 10^3/uL (3.29-11.43)
[2023-04-01 21:38] VITALS: BP 137/79; PULSE 74; RESP 20; O2SAT 98
[2023-04-01 21:50] VITALS: BP 137/79; PULSE 70; RESP 20; O2SAT 97
[2023-04-01 22:07] LABS: Alanine Aminotransferase 13 U/L (0-33); Albumin Level 4.2 g/dL (3.5-5.2); Alkaline Phosphatase 121 U/L (35-105); Anion Gap 15.7 (5-19); Aspartate Amino Transferase 13 U/L (0-32); Blood Urea Nitrogen 16 mg/dL (6-20); Calcium 9.3 mg/dL (8.5-10.5); Carbon Dioxide 22 mmol/L (22-29); Chloride 104 mmol/L (98-107); Globulin 2.4 g/dL (1.3-4.6); Glomerular Filtration Rate 46.6 mL/min (90-130); Glucose 112 mg/dL (65-115); Lipase 24 U/L (13-60); Osmolality Calculated 288 mOsm/kg (285-295); Potassium 3.7 mmol/L (3.5-5.1); Sodium 138 mmol/L (136-145); Total Bilirubin 0.3 mg/dL (0.15-1.2); Total Protein 6.6 g/dL (6.6-8.7)
[2023-04-01] MEDS: sodium chloride 0.9% 1,000 ML 999 ML IV (22:10)
[2023-04-01] MEDS: morphine 4 mg/mL SDV 1 mL IVP (22:10)
[2023-04-01] MEDS: ondansetron 2 mg/ML SDV 2 mL 4 MG IVP (22:10)
[2023-04-01 22:43] VITALS: BP 128/77; PULSE 73; RESP 20; O2SAT 73
== END 2023-04-01 22:44 | disposition home or self-care (01) ==
PROVIDERS: Emergency Provider Emergency Medicine; PCP Registered Nurse
DX: R10.9 Unspecified abdominal pain (principal); J44.9 Chronic obstructive pulmonary disease, unspecified; Z87.442 Personal history of urinary calculi; F17.210 Nicotine dependence, cigarettes, uncomplicated
CPT/HCPCS: 36415; 80053; 83690; 85025; 96361; 96374; 96375; 99284; J2270; J2405; J7030

== ENCOUNTER 2023-04-16 19:50 | Emergency (ER) | payer MEDICARE, MEDICAID, SELFPAY ==
[2023-04-16 19:51] VITALS: BP 94/64; PULSE 66; RESP 18; TEMP 36.6; O2SAT 93; BMI 27.4
[2023-04-16 20:00] VITALS: BP 99/63; PULSE 59; RESP 18; O2SAT 95
--- NOTE | 2023-04-16 20:09 | W.ED.ABDPA2 ---
HPI - Abdominal Pain General: Chief Complaint: Abdominal Pain Stated Complaint: ABD PAIN Time Seen by Provider: 04/16/23 19:55 History of Present Illness: 57-year-old female well-known to the emergency department service. She presents with chronic generalized abdominal pain. She has had an exacerbation of the last 3 days she says. She has vomited multiple times. No fever. No blood in the stool or vomit. She states that she is not constipated, and has had normal stools. Associated Symptoms: Reports nausea and vomiting; Denies chills, diarrhea, fever(s) and hematochezia Review of Systems Const: Denies: fever(s), chills or body aches Eyes: Denies: change in vision Card: Denies: chest pain or palpitations Resp: Denies: dyspnea, productive cough, non-productive cough or wheezing GI: Reports: abdominal pain, nausea and vomiting; Denies: diarrhea or hematochezia : Denies: difficulty voiding Skin/Breast: Denies: rash Neuro: Denies: headache(s), weakness in extremities, dizziness or confusion PFS ED PFSH: Medical History Bladder stone Borderline personality disorder Cannabis dependence, uncomplicated Chronic anxiety Chronic back pain greater than 3 months duration Chronic gastritis without bleeding COPD (chronic obstructive pulmonary disease) Cystitis cystica Dysphagia Esophageal stricture Foreign body in bladder GERD without esophagitis Insomnia Neurogenic bladder Opioid dependence, uncomplicated Psychiatric care Restrictive lung disease Schizoaffective disorder, bipolar type Tardive dyskinesia Tobacco use disorder Urgency incontinence Surgical History H/O bladder repair surgery MESH REPAIR H/O colonoscopy with polypectomy H/O esophagogastroduodenoscopy (09/21/20) H/O: hysterectomy History of appendectomy History of breast biopsy History of foot surgery sx in 2009. Screws placed by Dr. Don. History of ureter stent Hx of cholecystectomy S/P bronchoscopy with biopsy Family History Mother No problems noted. Father No problems noted. Other Asthma Cancer Diabetes Heart disease Social History Smoking and tobacco/nicotine status: current every day tobacco/nicotine user cigarettes Packs smoked per day: 1 Years cigarettes smoked: 20 [ Other cigarette details: Hx of 1 PPD x 20 Years, started at age 27] Quit status (tobacco/nicotine): considering quitting Second hand smoke exposure: Yes Alcohol intake: never Substance/Drug Use: former Lives independently: Yes Household members: spouse Marital status: Number of children: 3 Current occupational status: disabled Do you think of yourself as: Straight/Heterosexual Current gender identity: Female Physical Exam Const: COMMON NORMALS: no acute distress GENERAL APPEARANCE: cooperative; not ill appearing and not frail appearing HENMT: COMMON NORMALS: normocephalic, atraumatic and Normal external nose present HEAD & SCALP: normocephalic and atraumatic FACE & SINUS: normal facial exam and face symmetric NOSE: Normal external nose present Eye: COMMON NORMALS: Equal, round and reactive pupils present and EOMs intact bilaterally PUPIL: Yes Equal, round and reactive pupils present Neck/C-Spine: GENERAL: Yes trachea midline Chest: CHEST: Yes Symmetrical chest wall rise Resp: COMMON NORMALS: normal respiratory effort, No retractions, No use of accessory muscles and clear to auscultation bilaterally AUSCULTATION: clear to auscultation bilaterally Cardio: COMMON NORMALS: regular rate and regular rhythm RATE: regular rate RHYTHM: regular rhythm GI: COMMON NORMALS: Normal to inspection, nondistended, normoactive bowel sounds present PALPATION: Yes Tenderness to palpation present (GI) (Generalized, out of proportion to exam) Extremity: COMMON NORMALS: no pedal edema Neuro: JEANINE COMA SCALE: document GCS findings Jeanine coma scale eye opening: Spontaneous Jeanine coma scale verbal response: Orientated [place] coma scale motor response: Obey commands [place] coma scale total score: 15 SENSORY EXAM: Yes extremities (intact) Psych: COMMON NORMALS: speech normal SPEECH: Yes normal speech Skin: COMMON NORMALS: no rashes or lesions noted GENERAL SKIN EXAM: no rashes or lesions noted Course Vital Signs: Vital signs: Vital Signs Temperature 97.9 F 04/16/23 19:51 Pulse Rate 59 L 04/16/23 20:00 Respiratory Rate 18 04/16/23 21:25 Blood Pressure 99/63 04/16/23 20:00 Pulse Oximetry 95 04/16/23 21:25 Oxygen Delivery Me thod Room Air 04/16/23 20:00 MDM - Abdominal Pain Medical Decision Making 57-year-old lady with chronic abdominal pain. She is afebrile. Vitals are stable. CBC is normal. BMP is not remarkable. Liver enzymes are normal. CRP is minimally elevated at 15. Urinalysis is negative. She says that she has an appointment in mid April with her GI specialist. She asks for prescription for Zofran and Bentyl. She is prescribed these. Outpatient follow-up. Lab Data 04/16/23 20:41 04/16/23 20:41 Labs/Radiology: Laboratory Results WBC 7.59 10^3/uL (3.29-11.43) 04/16/23 20:41 RBC 4.59 10^6/uL (3.85-5.65) 04/16/23 20:41 Hgb 14.50 g/dL (11.27-16.99) 04/16/23 20:41 Hct 44.2 % (36-47) 04/16/23 20:41 MCV 96.3 fl (85-98) 04/16/23 20:41 MCH 31.6 pg (27-33) 04/16/23 20:41 MCHC 32.8 g/dL (30-55) 04/16/23 20:41 RDW 15.9 % (12.1-15.1) H 04/16/23 20:41 Plt Count 183 10^3/cmm (157-399) 04/16/23 20:41 MPV 10.4 fL (7.4-10.4) 04/16/23 20:41 Neut % (Auto) 57.1 % 04/16/23 20:41 Lymph % (Auto) 28.5 % 04/16/23 20:41 [place] % (Auto) 8.8 % 04/16/23 20:41 Eos % (Auto) 4.1 % 04/16/23 20:41 Baso % (Auto) 1.2 % 04/16/23 20:41 Neut # (Auto) 4.34 10^3/uL (1.8-7.7) 04/16/23 20:41 Lymph # (Auto) 2.2 10^3/uL (0.8-4.8) 04/16/23 20:41 [place] # (Auto) 0.7 10^3/uL (0.2-0.9) 04/16/23 20:41 Eos # (Auto) 0.3 10^3/uL (0.0-0.8) 04/16/23 20:41 Baso # (Auto) 0.1 10^3/uL (0.0-0.1) 04/16/23 20:41 Nucleated RBC % (auto) 0 % 04/16/23 20:41 Nucleated RBCs # 0.0 /100WBC 04/16/23 20:41 Sodium 139 mmol/L (136-145) 04/16/23 20:41 Potassium 3.9 mmol/L (3.5-5.1) 04/16/23 20:41 Chloride 106 mmol/L (98-107) 04/16/23 20:41 Carbon Dioxide 21 mmol/L (22-29) L 04/16/23 20:41 Anion Gap 15.9 (5-19) 04/16/23 20:41 BUN 15 mg/dL (6-20) 04/16/23 20:41 Creatinine 1.0 mg/dL (0.5-0.9) H 04/16/23 20:41 GFR Calculation 57.6 mL/min (90-130) L 04/16/23 20:41 Glucose 104 mg/dL (65-115) 04/16/23 20:41 Calculated Osmolality 289 mOsm/kg (285-295) 04/16/23 20:41 Calcium 9.6 mg/dL (8.5-10.5) 04/16/23 20:41 Total Bilirubin 0.3 mg/dL (0.15-1.2) 04/16/23 20:41 AST 13 U/L (0-32) 04/16/23 20:41 ALT 10 U/L (0-33) 04/16/23 20:41 Alkaline Phosphatase 116 U/L (35-105) H 04/16/23 20:41 C-Reactive Protein 15.4 mg/L (0.0-4.9) H 04/16/23 20:41 Total Protein 6.5 g/dL (6.6-8.7) L 04/16/23 20:41 Albumin 4.1 g/dL (3.5-5.2) 04/16/23 20:41 Globulin 2.4 g/dL (1.3-4.6) 04/16/23 20:41 Lipase 26 U/L (13-60) 04/16/23 20:41 Urine Color Yellow (Yellow) 04/16/23 21:40 Urine Appearance Clear (CLEAR) 04/16/23 21:40 Urine pH 5 (5-7) 04/16/23 21:40 Ur Specific [place] 1.020 (1.005-1.030) 04/16/23 21:40 Urine Protein Trace (Negative) 04/16/23 21:40 Urine Glucose (UA) Norm (Normal) 04/16/23 21:40 Urine Ketones 1+ (Negative) H 04/16/23 21:40 Urine Blood 2+ (Negative) H 04/16/23 21:40 Urine Nitrate Negative (Negative) 04/16/23 21:40 Urine Bilirubin Neg (Negative) 04/16/23 21:40 Urine Urobilinogen Neg mg/dL (Negative) 04/16/23 21:40 Ur Leukocyte Esterase Trace (Negative) H 04/16/23 21:40 Urine RBC 5-10 /hpf (0-2) H 04/16/23 21:40 Urine WBC 5-10 /hpf (0-5) H 04/16/23 21:40 Ur Squamous Epith Cells 0-4 /hpf (0-5) H 04/16/23 21:40 Amorphous Sediment Not Reportable 04/16/23 21:40 Urine Bacteria Trace /hpf (NONE) 04/16/23 21:40 Urine Mucus 2+ /hpf 04/16/23 21:40 No radiology studies performed this visit Discharge Plan Discharge Patient Disposition: Home Clinical Impression: Abdominal pain Condition: Stable Prescriptions: New dicyclomine 10 mg capsule 10 mg PO TID Qty: 60 0RF Continued ondansetron 4 mg tablet,disintegrating 4 mg PO Q6H PRN (Reason: nausea and vomiting) Qty: 14 0RF No Action Rexulti 1 mg tablet 1 mg PO DAILY Qty: 30 1RF Rx Instructions: Take one tablet daily at 8 PM trazodone 100 mg tablet 200 mg PO DAILY PRN (Reason: insomnia) Qty: 60 0RF Rx Instructions: Take two tablets at bedtime, if needed for insomnia Trintellix 20 mg tablet 20 mg PO DAILY Qty: 30 0RF Rx Instructions: Take one tablet once daily lamotrigine 200 mg tablet 200 mg PO DAILY@06 Qty: 30 0RF Rx Instructions: Take one tablet by mouth every morning nystatin 100,000 unit/gram powder 1 applic topical BID Qty: 30 0RF Rx Instructions: apply locally to B/L groin folds albuterol sulfate 90 mcg/actuation HFA aerosol inhaler See Rx Instructions .ROUTE .COMPLEX Qty: 8.5 0RF Dose Instruction: INHALE 2 PUFFS BY MOUTH EVERY 6 HOURS NEEDED FOR SHORTNESS OF BREATH OR WHEEZING Rx Instructions: INHALE 2 PUFFS BY MOUTH EVERY 6 HOURS NEEDED FOR SHORTNESS OF BREATH OR WHEEZING montelukast [Singulair] 10 mg tablet 10 mg PO DAILY 90 Days Qty: 90 0RF Ingrezza 80 mg capsule 80 mg PO .hs Qty: 30 2RF Rx Instructions: Take one capsule by mouth every morning pantoprazole 40 mg tablet,delayed release (DR/EC) See Rx Instructions .ROUTE .COMPLEX Qty: 90 0RF Dose Instruction: TAKE 1 TABLET BY MOUTH DAILY AT 6 AM Rx Instructions: TAKE 1 TABLET BY MOUTH DAILY AT 6 AM acetaminophen 500 mg Tablet 1,000 mg PO Q6H PRN (Reason: Pain) Compazine 25 mg suppository 25 mg [place] BID PRN (Reason: nausea and vomiting) Qty: 20 0RF Discharge Orders: Discharge ED (Routine); Ordered 04/16/23 Ordered By: Chivo Deleon Referrals: Dara Tavera, AUTOMOTIVE LIGHT MECHANIC [Primary Care Provider] - 1-3 days Patient Instructions: Abdominal Pain (ED), Opioid Safety, Pain Management Coding Level of Care Code ED Cafeteria Team Leader for Shellie Guallpa
[2023-04-16 20:52] LABS: Basophils # 0.1 10^3/uL (0.0-0.1); Basophils % 1.2 %; Eosinophils # 0.3 10^3/uL (0.0-0.8); Eosinophils % 4.1 %; Hematocrit 44.2 % (36-47); Lymphocytes # 2.2 10^3/uL (0.8-4.8); Lymphocytes % 28.5 %; Mean Corpuscular HGB Conc 32.8 g/dL (30-55); Mean Corpuscular Hemoglobin 31.6 pg (27-33); Mean Corpuscular Volume 96.3 fl (85-98); Mean Platelet Volume 10.4 fL (7.4-10.4); Monocytes # 0.7 10^3/uL (0.2-0.9); Monocytes % 8.8 %; Neutrophils # 4.34 10^3/uL (1.8-7.7); Neutrophils % 57.1 %; Nucleated Red Blood Cells % 0 %; Platelet Count 183 10^3/cmm (157-399); Red Blood Count 4.59 10^6/uL (3.85-5.65); Red Cell Distribution Width 15.9 % (12.1-15.1); White Blood Count 7.59 10^3/uL (3.29-11.43)
[2023-04-16 21:07] LABS: Albumin Level 4.1 g/dL (3.5-5.2); C Reactive Protein 15.4 mg/L (0.0-4.9); Chloride 106 mmol/L (98-107); Potassium 3.9 mmol/L (3.5-5.1); Sodium 139 mmol/L (136-145)
[2023-04-16] MEDS: ondansetron 2 mg/ML SDV 2 mL 4 MG IM (21:24)
[2023-04-16 21:25] VITALS: RESP 18; O2SAT 95
[2023-04-16] MEDS: HYDROmorphone 1 mg/mL INJ 1 mL 2 MG IM (21:25)
[2023-04-16 21:27] LABS: Alanine Aminotransferase 10 U/L (0-33); Alkaline Phosphatase 116 U/L (35-105); Anion Gap 15.9 (5-19); Aspartate Amino Transferase 13 U/L (0-32); Blood Urea Nitrogen 15 mg/dL (6-20); Calcium 9.6 mg/dL (8.5-10.5); Carbon Dioxide 21 mmol/L (22-29); Globulin 2.4 g/dL (1.3-4.6); Glomerular Filtration Rate 57.6 mL/min (90-130); Glucose 104 mg/dL (65-115); Lipase 26 U/L (13-60); Osmolality Calculated 289 mOsm/kg (285-295); Total Bilirubin 0.3 mg/dL (0.15-1.2); Total Protein 6.5 g/dL (6.6-8.7)
[2023-04-16 22:53] LABS: Add Urine Culture? No; Add Urine Microscopic? YES; Bacteria Urine TRACE /hpf; Bilirubin Urine Neg (Negative); Blood Urine 2+ (Negative); Glucose Urine UA Norm (Normal); Ketones Urine 1+ (Negative); Leukocyte Esterase Urine Trace (Negative); Mucus Urine 2+ /hpf; Nitrate Urine Negative (Negative); Protein Urine Trace (Negative); Squamous Epithelial Cell Urine 0-4 /hpf (0-5); Urine Appearance Clear (CLEAR); Urine Color Yellow (Yellow); Urobilinogen Urine Neg (Negative); pH Urine 5 (5-7)
== END 2023-04-16 23:14 | disposition home or self-care (01) ==
PROVIDERS: Emergency Provider Emergency Medicine; PCP Registered Nurse
DX: R10.84 Generalized abdominal pain (principal); F17.210 Nicotine dependence, cigarettes, uncomplicated; J44.9 Chronic obstructive pulmonary disease, unspecified
CPT/HCPCS: 36415; 80053; 81001; 83690; 85025; 86140; 96372; 99284; J1170; J2405

== ENCOUNTER 2023-05-14 21:55 | Emergency (ER) | payer MEDICARE, MEDICAID, SELFPAY ==
[2023-05-14 22:06] VITALS: BP 110/66; PULSE 64; RESP 16; TEMP 36.6; O2SAT 95; BMI 27.4
--- NOTE | 2023-05-14 22:10 | ECG_ITS ---
[facility] Test Date: 2023-05-14 Pat Name: Latesha Wilhelm Department: Room: Gender: Female Paste Mixer: : 1965 Requested By: Damien Urbina Order Number: [id number] Alice MD: Carl Akins M.D. Measurements Intervals [place] Rate: 55 P: 60 [place]: 161 QRS: 69 QRSD: 119 T: 61 QT: 447 QTc: 430 Interpretive Statements SINUS BRADYCARDIA Normal EKG Compared to ECG 02/26/2023 20:08:01 No significant change Electronically Signed On 05-15-2023 9:14:28 CHIEF POWER DISPATCHER by Carl Akins M.D. [id number]
--- NOTE | 2023-05-14 22:10 | XRR_ITS ---
PROCEDURE INFORMATION: Exam: XR Chest Exam date and time: 05/14/2023 10:20 PM Age: 57 years old Clinical indication: Pain; Cough and dyspnea; Angina pectoris; Additional info: Cp TECHNIQUE: Imaging protocol: Radiologic exam of the chest. Views: 1 view. COMPARISON: CR XR chest 1V portable [id number] 02/26/2023 8:10 PM FINDINGS: Lungs: Unremarkable. No consolidation. Pleural spaces: Unremarkable. No pleural effusion. No pneumothorax. Heart/Mediastinum: Unremarkable. No cardiomegaly. Bones/joints: Unremarkable. XR/XR chest 1V portable [id number] IMPRESSION: No acute findings.
--- NOTE | 2023-05-14 22:18 | W.ED.CHESTPA ---
HPI - Chest Pain General: Chief Complaint: Chest Pain Stated Complaint: ABD PAIN Time Seen by Provider: 05/14/23 21:57 Source: patient and EMS Mode of arrival: EMS Limitations: no limitations History of Present Illness: 57-year-old female is very well-known to ER states she started having chest pain center of her chest 2 hours ago. States pain sharp in nature she denies any shortness of breath she denies any radiation of her pain. She has had some nausea denies any vomiting denies any cough or fever Associated symptoms: Deny abdominal pain, dyspnea, fever(s), nausea or vomiting Review of Systems Const: Denies: fever(s), chills, body aches or change in appetite ENMT: Denies: throat pain or dental pain Card: Reports: chest pain Resp: Denies: dyspnea GI: Denies: abdominal pain, nausea, vomiting or diarrhea Musc: Denies: neck pain or back pain Skin/Breast: Denies: rash Neuro: Denies: headache(s) PFSH ED PFSH: Medical History Bladder stone Borderline personality disorder Cannabis dependence, uncomplicated Chronic anxiety Chronic back pain greater than 3 months duration Chronic gastritis without bleeding COPD (chronic obstructive pulmonary disease) Cystitis cystica Dysphagia Esophageal stricture Foreign body in bladder GERD without esophagitis Insomnia Neurogenic bladder Opioid dependence, uncomplicated Psychiatric care Restrictive lung disease Schizoaffective disorder, bipolar type Tardive dyskinesia Tobacco use disorder Urgency incontinence Surgical History H/O bladder repair surgery MESH REPAIR H/O colonoscopy with polypectomy H/O esophagogastroduodenoscopy (09/21/20) H/O: hysterectomy History of appendectomy History of breast biopsy History of foot surgery sx in 2009. Screws placed by Dr. Don. History of ureter stent Hx of cholecystectomy S/P bronchoscopy with biopsy Family History Mother No problems noted. Father No problems noted. Other Asthma Cancer Diabetes Heart disease Social History Smoking and tobacco/nicotine status: current every day tobacco/nicotine user cigarettes Packs smoked per day: 1 Years cigarettes smoked: 20 [ Other cigarette details: Hx of 1 PPD x 20 Years, started at age 27] Quit status (tobacco/nicotine): considering quitting Second hand smoke exposure: Yes Alcohol intake: never Substance/Drug Use: former Lives independently: Yes Household members: spouse Marital status: Number of children: 3 Current occupational status: disabled Do you think of yourself as: Straight/Heterosexual Current gender identity: Female Physical Exam Const: COMMON NORMALS: no acute distress, patient oriented x3 and healthy appearing HENMT: COMMON NORMALS: normocephalic and atraumatic HEAD & SCALP: normocephalic and atraumatic Eye: COMMON NORMALS: Equal, round and reactive pupils present and EOMs intact bilaterally PUPIL: Yes Equal, round and reactive pupils present Neck/C-Spine: COMMON NORMALS: full ROM and supple Chest: COMMONS NORMALS: normal inspection of the chest and normal palpation of entire chest wall Resp: COMMON NORMALS: normal respiratory effort, No retractions, No use of accessory muscles and clear to auscultation bilaterally AUSCULTATION: clear to auscultation bilaterally Cardio: COMMON NORMALS: regular rate, regular rhythm and No murmurs present (Cardio) RATE: regular rate RHYTHM: regular rhythm GI: COMMON NORMALS: Normal to inspection, nondistended, normoactive bowel sounds present, Soft to palpation, non-tender and no masses PALPATION: Yes Soft to palpation Extremity: COMMON NORMALS: normal to inspection and full ROM Neuro: COMMON NORMALS: patient oriented x3, moves all extremities and no focal motor deficits Psych: COMMON NORMALS: mental status grossly normal, Normal thought process present and cooperative THOUGHT PROCESS: Normal thought process present Skin: COMMON NORMALS: no rashes or lesions noted and no wounds GENERAL SKIN EXAM: no rashes or lesions noted Course Vital Signs: Vital signs: Vital Signs Temperature 97.9 F 05/14/23 22:06 Pulse Rate 45 L 05/14/23 23:00 Respiratory Rate 11 L 05/14/23 23:00 Blood Pressure 135/66 05/14/23 23:00 Pulse Oximetry 97 05/14/23 23:00 Oxygen Delivery Me thod Room Air 05/14/23 22:06 MDM - Chest Pain Medical Decision Making Patient presents here with chest pains atypical in nature troponins EKG and x-rays are all normal here she is stable for discharge she is to follow-up with PCP and return if worsening. Medical Records I reviewed the patient's medical records. Lab Data I reviewed the patient's lab results. 05/14/23 22:17 05/14/23 22:17 Radiology Impressions Chest X-Ray 05/14/23 22:10 IMPRESSION: No acute findings. Laboratory Results WBC 7.07 10^3/uL (3.29-11.43) 05/14/23 22:17 RBC 4.78 10^6/uL (3.85-5.65) 05/14/23 22:17 Hgb 15.30 g/dL (11.27-16.99) 05/14/23 22:17 Hct 45.8 % (36-47) 05/14/23 22:17 MCV 95.8 fl (85-98) 05/14/23 22:17 MCH 32.0 pg (27-33) 05/14/23 22:17 MCHC 33.4 g/dL (30-55) 05/14/23 22:17 RDW 14.7 % (12.1-15.1) 05/14/23 22:17 Plt Count 188 10^3/cmm (157-399) 05/14/23 22:17 MPV 10.0 fL (7.4-10.4) 05/14/23 22:17 Neut % (Auto) 54.5 % 05/14/23 22:17 Lymph % (Auto) 34.2 % 05/14/23 22:17 [place] % (Auto) 6.4 % 05/14/23 22:17 Eos % (Auto) 3.7 % 05/14/23 22:17 Baso % (Auto) 1.1 % 05/14/23 22:17 Neut # (Auto) 3.85 10^3/uL (1.8-7.7) 05/14/23 22:17 Lymph # (Auto) 2.4 10^3/uL (0.8-4.8) 05/14/23 22:17 [place] # (Auto) 0.5 10^3/uL (0.2-0.9) 05/14/23 22:17 Eos # (Auto) 0.3 10^3/uL (0.0-0.8) 05/14/23 22:17 Baso # (Auto) 0.1 10^3/uL (0.0-0.1) 05/14/23 22:17 Nucleated RBC % (auto) 0 % 05/14/23 22:17 Nucleated RBCs # 0.0 /100WBC 05/14/23 22:17 Sodium 140 mmol/L (136-145) 05/14/23 22:17 Potassium 3.8 mmol/L (3.5-5.1) 05/14/23 22:17 Chloride 106 mmol/L (98-107) 05/14/23 22:17 Carbon Dioxide 24 mmol/L (22-29) 05/14/23 22:17 Anion Gap 13.8 (5-19) 05/14/23 22:17 BUN 14 mg/dL (6-20) 05/14/23 22:17 Creatinine 1.2 mg/dL (0.5-0.9) H 05/14/23 22:17 GFR Calculation 46.6 mL/min (90-130) L 05/14/23 22:17 Glucose 93 mg/dL (65-115) 05/14/23 22:17 Calculated Osmolality 290 mOsm/kg (285-295) 05/14/23 22:17 Calcium 9.4 mg/dL (8.5-10.5) 05/14/23 22:17 Total Bilirubin 0.2 mg/dL (0.15-1.2) 05/14/23 22:17 AST 11 U/L (0-32) 05/14/23 22:17 ALT 8 U/L (0-33) 05/14/23 22:17 Alkaline Phosphatase 108 U/L (35-105) H 05/14/23 22:17 Troponin T Baseline 8 ng/L (0-10) 05/14/23 22:17 Troponin T 120 Minute 6.00 ng/L (0-10) 05/15/23 00:12 Delta Troponin T -2.00 ABS# (0-10) L 05/15/23 00:12 Total Protein 6.3 g/dL (6.6-8.7) L 05/14/23 22:17 Albumin 4.0 g/dL (3.5-5.2) 05/14/23 22:17 Globulin 2.3 g/dL (1.3-4.6) 05/14/23 22:17 Lipase 22 U/L (13-60) 05/14/23 22:17 All radiology interpretation(s) finalized by discharge EKG Data EKG 1: I personally reviewed and interpreted this EKG as follows: EKG interpretation date: 05/14/23 EKG interpretation time: 22:09 Interpretation: sinus bradyhr [address] or t wave abnormalities qrs 119 qtc 436 Discharge Plan Discharge Patient Disposition: Home Clinical Impression: Chest pain Condition: Stable Prescriptions: No Action Rexulti 1 mg tablet 1 mg PO DAILY Qty: 30 1RF Rx Instructions: Take one tablet daily at 8 PM trazodone 100 mg tablet 200 mg PO DAILY PRN (Reason: insomnia) Qty: 60 0RF Rx Instructions: Take two tablets at bedtime, if needed for insomnia Trintellix 20 mg tablet 20 mg PO DAILY Qty: 30 0RF Rx Instructions: Take one tablet once daily lamotrigine 200 mg tablet 200 mg PO DAILY@06 Qty: 30 0RF Rx Instructions: Take one tablet by mouth every morning nystatin 100,000 unit/gram powder 1 applic topical BID Qty: 30 0RF Rx Instructions: apply locally to B/L groin folds albuterol sulfate 90 mcg/actuation HFA aerosol inhaler See Rx Instructions .ROUTE .COMPLEX Qty: 8.5 0RF Dose Instruction: INHALE 2 PUFFS BY MOUTH EVERY 6 HOURS NEEDED FOR SHORTNESS OF BREATH OR WHEEZING Rx Instructions: INHALE 2 PUFFS BY MOUTH EVERY 6 HOURS NEEDED FOR SHORTNESS OF BREATH OR WHEEZING montelukast [Singulair] 10 mg tablet 10 mg PO DAILY 90 Days Qty: 90 0RF Ingrezza 80 mg capsule 80 mg PO .hs Qty: 30 2RF Rx Instructions: Take one capsule by mouth every morning pantoprazole 40 mg tablet,delayed release (DR/EC) See Rx Instructions .ROUTE .COMPLEX Qty: 90 0RF Dose Instruction: TAKE 1 TABLET BY MOUTH DAILY AT 6 AM Rx Instructions: TAKE 1 TABLET BY MOUTH DAILY AT 6 AM acetaminophen 500 mg Tablet 1,000 mg PO Q6H PRN (Reason: Pain) Compazine 25 mg suppository 25 mg [place] BID PRN (Reason: nausea and vomiting) Qty: 20 0RF ondansetron 4 mg tablet,disintegrating 4 mg PO Q6H PRN (Reason: nausea and vomiting) Qty: 14 0RF dicyclomine 10 mg capsule 10 mg PO TID Qty: 60 0RF Discharge Orders: Discharge ED (Routine); Ordered 05/15/23 Ordered By: Damien Urbina Referrals: Dara Tavera FNP [Primary Care Provider] - 1-3 days Discharge Diet: Advance as tolerated Discharge Activity: Resume usual activity Patient Instructions: Chest Pain (ED) Coding Level of Care Code ED Solder Leveler Printed Circuit Boards for Shellie Guallpa
[2023-05-14 22:23] VITALS: RESP 20; O2SAT 98
[2023-05-14] MEDS: morphine 4 mg/mL SDV 1 mL IVP (22:23)
[2023-05-14] MEDS: ondansetron 2 mg/ML SDV 2 mL 4 MG IVP (22:25)
[2023-05-14 22:26] LABS: Basophils # 0.1 10^3/uL (0.0-0.1); Basophils % 1.1 %; Eosinophils # 0.3 10^3/uL (0.0-0.8); Eosinophils % 3.7 %; Hematocrit 45.8 % (36-47); Lymphocytes # 2.4 10^3/uL (0.8-4.8); Lymphocytes % 34.2 %; Mean Corpuscular HGB Conc 33.4 g/dL (30-55); Mean Corpuscular Volume 95.8 fl (85-98); Monocytes # 0.5 10^3/uL (0.2-0.9); Monocytes % 6.4 %; Neutrophils # 3.85 10^3/uL (1.8-7.7); Neutrophils % 54.5 %; Nucleated Red Blood Cells % 0 %; Platelet Count 188 10^3/cmm (157-399); Red Blood Count 4.78 10^6/uL (3.85-5.65); Red Cell Distribution Width 14.7 % (12.1-15.1); White Blood Count 7.07 10^3/uL (3.29-11.43)
[2023-05-14 22:47] LABS: Alanine Aminotransferase 8 U/L (0-33); Alkaline Phosphatase 108 U/L (35-105); Anion Gap 13.8 (5-19); Aspartate Amino Transferase 11 U/L (0-32); Blood Urea Nitrogen 14 mg/dL (6-20); Calcium 9.4 mg/dL (8.5-10.5); Carbon Dioxide 24 mmol/L (22-29); Chloride 106 mmol/L (98-107); Globulin 2.3 g/dL (1.3-4.6); Glomerular Filtration Rate 46.6 mL/min (90-130); Glucose 93 mg/dL (65-115); Lipase 22 U/L (13-60); Osmolality Calculated 290 mOsm/kg (285-295); Potassium 3.8 mmol/L (3.5-5.1); Sodium 140 mmol/L (136-145); Total Bilirubin 0.2 mg/dL (0.15-1.2); Total Protein 6.3 g/dL (6.6-8.7)
[2023-05-14 22:48] LABS: Troponin(5th) Baseline 8 ng/L (0-10)
[2023-05-14 23:00] VITALS: BP 135/66; PULSE 45; RESP 11; O2SAT 97
[2023-05-15 00:57] VITALS: BP 92/59; PULSE 54; RESP 17; O2SAT 97
[2023-05-15] MEDS: HYDROcodone-acetaminophen 7.5-325 mg Tablet 1 TAB PO (00:58)
== END 2023-05-15 00:58 | disposition home or self-care (01) ==
PROVIDERS: Emergency Provider Emergency Medicine; PCP Registered Nurse
DX: R07.9 Chest pain, unspecified (principal); F17.210 Nicotine dependence, cigarettes, uncomplicated; J44.9 Chronic obstructive pulmonary disease, unspecified
CPT/HCPCS: 36415; 71045; 80053; 83690; 84484; 85025; 93005; 93010; 96374; 96375; 99285; J2270; J2405

== ENCOUNTER 2023-05-29 00:09 | Emergency (ER) | payer MEDICARE, MEDICAID, SELFPAY ==
[2023-05-29 00:10] VITALS: BP 150/86; PULSE 57; RESP 16; TEMP 36.8; O2SAT 97
[2023-05-29 00:24] LABS: Add Urine Microscopic? NO; Charge for UA Resulting for Rev
[2023-05-29 00:25] LABS: Bilirubin Urine Neg (Negative); Blood Urine Neg (Negative); Glucose Urine UA Norm (Normal); Ketones Urine Negative (Negative); Leukocyte Esterase Urine Negative (Negative); Nitrate Urine Negative (Negative); Protein Urine Neg (Negative); Specific Gravity, Urine 1.005 (1.005-1.030); Urine Appearance Clear (CLEAR); Urine Color Yellow (Yellow); Urobilinogen Urine Norm (Negative); pH Urine 7 (5-7)
--- NOTE | 2023-05-29 00:42 | ECG_ITS ---
[facility] Test Date: 2023-05-29 Pat Name: Latesha Wilhelm Department: Room: Gender: Female Office Support: : 1965 Requested By: Chivo Reynaga Order Number: [id number] Alice MD: Temo Tony M.D. Measurements Intervals [place] Rate: 51 P: 71 [place]: 161 QRS: 66 QRSD: 96 T: 73 QT: 466 QTc: 430 Interpretive Statements SINUS BRADYCARDIA INCOMPLETE RIGHT BUNDLE BRANCH BLOCK [90+ ms QRS DURATION, TERMINAL R IN V1/V2, 40+ ms S IN I/aVL/V4/V5/V6] Compared to ECG 05/14/2023 22:09:22 Incomplete right bundle-branch block now present Electronically Signed On 05-29-2023 15:54:32 HOME ECONOMICS EXTENSION WORKER by Temo Tony M.D. [id number]
[2023-05-29 00:45] LABS: Basophils % 0.2 %; Eosinophils # 0.1 10^3/uL (0.0-0.8); Eosinophils % 0.6 %; Hematocrit 42.4 % (36-47); Lymphocytes # 3.9 10^3/uL (0.8-4.8); Lymphocytes % 39.4 %; Mean Corpuscular Volume 94.2 fl (85-98); Mean Platelet Volume 10.4 fL (7.4-10.4); Monocytes # 0.7 10^3/uL (0.2-0.9); Monocytes % 6.9 %; Neutrophils # 5.24 10^3/uL (1.8-7.7); Neutrophils % 52.4 %; Nucleated Red Blood Cells % 0 %; Platelet Count 228 10^3/cmm (157-399); Red Cell Distribution Width 14.5 % (12.1-15.1)
[2023-05-29 01:03] LABS: Alanine Aminotransferase 6 U/L (0-33); Albumin Level 3.9 g/dL (3.5-5.2); Alkaline Phosphatase 93 U/L (35-105); Anion Gap 12.3 (5-19); Aspartate Amino Transferase 7 U/L (0-32); Blood Urea Nitrogen 20 mg/dL (6-20); Calcium 9.7 mg/dL (8.5-10.5); Carbon Dioxide 26 mmol/L (22-29); Chloride 107 mmol/L (98-107); Globulin 2.4 g/dL (1.3-4.6); Glomerular Filtration Rate 57.6 mL/min (90-130); Glucose 91 mg/dL (65-115); Lipase 26 U/L (13-60); Osmolality Calculated 294 mOsm/kg (285-295); Potassium 4.3 mmol/L (3.5-5.1); Sodium 141 mmol/L (136-145); Total Bilirubin 0.2 mg/dL (0.15-1.2); Total Protein 6.3 g/dL (6.6-8.7)
--- NOTE | 2023-05-29 01:10 | XRR_ITS ---
PROCEDURE INFORMATION: Exam: XR Abdomen Exam date and time: 05/29/2023 1:15 AM Age: 57 years old Clinical indication: Abdominal pain; Generalized; Prior surgery; Surgery date: 6+ months; Surgery type: Breast bx. Gb. Appy. Bladder mesh. Hysterectomy. Patient HX: C/O diffuse abd pain TECHNIQUE: Imaging protocol: Radiologic exam of the abdomen. Views: Frontal supine view of the abdomen. 1 View. COMPARISON: CR XR KUB portable [id number] 12/05/2022 2:39 AM FINDINGS: Tubes, catheters and devices: Mesh coils in the left pelvis. Gastrointestinal tract: Moderate colonic fecal volume. Negative for bowel pneumatosis. No bowel dilation. Intraperitoneal space: Right upper quadrant surgical clips. Bones/joints: Unremarkable. XR/XR KUB portable [id number] IMPRESSION: No acute findings.
[2023-05-29] MEDS: ondansetron 2 mg/ML SDV 2 mL 4 MG IVP (01:40)
[2023-05-29] MEDS: sodium chloride 0.9% 1,000 ML 999 ML IV (01:40)
[2023-05-29] MEDS: morphine 4 mg/mL SDV 1 mL IVP ×2 (01:40→02:31)
[2023-05-29 01:44] VITALS: BP 165/76; PULSE 57; RESP 16; O2SAT 96
[2023-05-29 02:18] VITALS: BP 149/66; PULSE 40; RESP 16; O2SAT 95
[2023-05-29 03:32] VITALS: BP 149/66; PULSE 54; RESP 16; TEMP 36.8; O2SAT 95
--- NOTE | 2023-05-29 05:30 | ED_ITS ---
HPI - Abdominal Pain 2 General: Chief Complaint: Abdominal Pain Stated Complaint: ABD PAIN Time Seen by Provider: 05/29/23 00:15 History of Present Illness: 57-year-old female well-known [facility]. She presents with generalized bilateral belly pain. She states she has been vomiting. She feels dry. She was seen at [facility] on 05/24, and she states she was diagnosed with a bacterial infection of her colon . She was given azithromycin for this, which she took. She says she was better a couple of days, but is worse this morning. No blood in the stool. Associated Symptoms: Denies chills, fever(s) and hematochezia Review of Systems 2 Const: Denies: fever(s), chills or body aches Eyes: Denies: change in vision Card: Denies: chest pain or palpitations Resp: Reports: non-productive cough and wheezing; Denies: dyspnea or productive cough GI: Denies: hematochezia : Denies: difficulty voiding Skin/Breast: Denies: rash Neuro: Denies: headache(s), weakness in extremities, dizziness or confusion PFSH ED 2 PFSH: Medical History Insomnia Tobacco use disorder Opioid dependence, uncomplicated Cannabis dependence, uncomplicated Psychiatric care Tardive dyskinesia Esophageal stricture Cystitis cystica Chronic gastritis without bleeding Restrictive lung disease Chronic back pain greater than 3 months duration Borderline personality disorder Schizoaffective disorder, bipolar type Urgency incontinence Neurogenic bladder Dysphagia COPD (chronic obstructive pulmonary disease) GERD without esophagitis Foreign body in bladder Bladder stone Chronic anxiety Surgical History H/O bladder repair surgery MESH REPAIR H/O esophagogastroduodenoscopy (09/21/20) H/O colonoscopy with polypectomy History of foot surgery sx in 2009. Screws placed by Dr. Don. S/P bronchoscopy with biopsy History of ureter stent History of breast biopsy Hx of cholecystectomy H/O: hysterectomy History of appendectomy Family History Mother No problems noted. Father No problems noted. Other Asthma Cancer Diabetes Heart disease Social History Smoking and tobacco/nicotine status: current every day tobacco/nicotine user cigarettes Packs smoked per day: 1 Years cigarettes smoked: 20 [ Other cigarette details: Hx of 1 PPD x 20 Years, started at age 27] Quit status (tobacco/nicotine): considering quitting Second hand smoke exposure: Yes Alcohol intake: never Substance/Drug Use: former Lives independently: Yes Household members: spouse Marital status: Number of children: 3 Current occupational status: disabled Do you think of yourself as: Straight/Heterosexual Current gender identity: Female Physical Exam 2 Const: COMMON NORMALS: alert GENERAL APPEARANCE: well developed O RIENTATION/CONSCIOUSNESS: Yes awake, Yes oriented to person, Yes oriented to place and Yes oriented to time HENMT: COMMON NORMALS: normocephalic, external ears normal, Normal external nose present and moist oral mucous membranes HEAD & SCALP: normocephalic; no scalp tenderness FACE & SINUS: normal facial exam NOSE: Normal external nose present and No nasal discharge present EXTERNAL EAR: Yes external ears normal MOUTH: tongue normal TEETH & GINGIVA: no abnormal tooth and associated gingiva THROAT: posterior oropharynx normal; no peritonsillar mass Eye: COMMON NORMALS: Equal, round and reactive pupils present, EOMs intact bilaterally and conjunctivae normal EYELID: eyelids normal CONJUNCTIVA: Y es conjunctivae normal PUPIL: Yes Equal, round and reactive pupils present Neck/C-Spine: COMMON NORMALS: full ROM GENERAL: Yes anterior neck swelling and No tracheal deviation CERVICAL SPINE: Yes normal cervical lordosis, No Cervical spine tenderness, No step off deformity, No Paracervical muscle tenderness and No Paracervical spasm Chest: COMMONS NORMALS: normal inspection of the chest CHEST: Yes Symmetrical chest wall rise and No tenderness Resp: COMMON NORMALS: clear to auscultation bilaterally EFFORT & INSPECTION: No tachypneic, No respiratory distress, No retractions, No uses accessory muscles and No tracheal deviation AUSCULTATION: clear to auscultation bilaterally, no rhonchi, no wheezes and lung sounds not diminished Cardio: COMMON NORMALS: regular rate and regular rhythm RATE: regular rate RHYTHM: regular rhythm HEART SOUNDS: no murmurs PERIPHERAL PULSES: r adial pulses present GI: COMMON NORMALS: Normal to inspection, nondistended, normoactive bowel sounds present INSPECTION: No abdominal distension AUSCULTATION: Yes normoactive bowel sounds, No Hyperactive bowel sounds present and No Hypoactive bowel sounds present PALPATION: Yes Tenderness to palpation present (GI), Yes Guarding due to palpation present (GI) and No Rigid due to palpation P ERCUSSION: no dullness to percussion and no tympanic to percussion : COMMON NORMALS: Yes no CVA tenderness BLADDER/KIDNEY EXAM: Yes no CVA tenderness Back/Pelvis: COMMON NORMALS: no CVA tenderness PELVIS: Yes no pain with anterior-posterior compression and Yes no pain with lateral compression Neuro: SENSORIUM/ORIENTATION: Yes alert, Yes oriented to person, Yes oriented to place and Yes oriented to time Psych: COMMON NORMALS: mental status grossly normal and speech normal S PEECH: Yes normal speech Skin: COMMON NORMALS: no rashes or lesions noted GENERAL SKIN EXAM: no rashes or lesions noted Course 2 Vital Signs: Vital signs: Vital Signs Temperature 98.3 F 05/29/23 03:32 Pulse Rate 54 L 05/29/23 03:32 Respiratory Rate 16 05/29/23 03:32 Blood Pressure 149/66 05/29/23 03:32 Pulse Oximetry 95 05/29/23 03:32 Oxygen Delivery Me thod Room Air 05/29/23 00:10 MDM - Abdominal Pain Medical Decision Making Generalized abdominal pain in a patient with generalized abdominal pain history. Laboratory is not remarkable. Urinalysis is not remarkable. CRP is three. KUB does not show any bowel pattern abnormality. Her symptoms are improved. She's asking if she can go home. She'll be allowed to discharge period to return for worsening symptoms. Lab Data 05/29/23 00:35 05/29/23 00:35 Labs/Radiology: Radiology Impressions KUB X-Ray 05/29/23 01:10 IMPRESSION: No acute findings. Laboratory Results WBC 10.00 10^3/uL (3.29-11.43) 05/29/23 00:35 RBC 4.50 10^6/uL (3.85-5.65) 05/29/23 00:35 Hgb 14.40 g/dL (11.27-16.99) 05/29/23 00:35 Hct 42.4 % (36-47) 05/29/23 00:35 MCV 94.2 fl (85-98) 05/29/23 00:35 MCH 32.0 pg (27-33) 05/29/23 00:35 MCHC 34.0 g/dL (30-55) 05/29/23 00:35 RDW 14.5 % (12.1-15.1) 05/29/23 00:35 Plt Count 228 10^3/cmm (157-399) 05/29/23 00:35 MPV 10.4 fL (7.4-10.4) 05/29/23 00:35 Neut % (Auto) 52.4 % 05/29/23 00:35 Lymph % (Auto) 39.4 % 05/29/23 00:35 [place] % (Auto) 6.9 % 05/29/23 00:35 Eos % (Auto) 0.6 % 05/29/23 00:35 Baso % (Auto) 0.2 % 05/29/23 00:35 Neut # (Auto) 5.24 10^3/uL (1.8-7.7) 05/29/23 00:35 Lymph # (Auto) 3.9 10^3/uL (0.8-4.8) 05/29/23 00:35 [place] # (Auto) 0.7 10^3/uL (0.2-0.9) 05/29/23 00:35 Eos # (Auto) 0.1 10^3/uL (0.0-0.8) 05/29/23 00:35 Baso # (Auto) 0.0 10^3/uL (0.0-0.1) 05/29/23 00:35 Nucleated RBC % (auto) 0 % 05/29/23 00:35 Nucleated RBCs # 0.0 /100WBC 05/29/23 00:35 Sodium 141 mmol/L (136-145) 05/29/23 00:35 Potassium 4.3 mmol/L (3.5-5.1) 05/29/23 00:35 Chloride 107 mmol/L (98-107) 05/29/23 00:35 Carbon Dioxide 26 mmol/L (22-29) 05/29/23 00:35 Anion Gap 12.3 (5-19) 05/29/23 00:35 BUN 20 mg/dL (6-20) 05/29/23 00:35 Creatinine 1.0 mg/dL (0.5-0.9) H 12 00:35 GFR Calculation 57.6 mL/min (90-130) L 05/29/23 00:35 Glucose 91 mg/dL (65-115) 05/29/23 00:35 Calculated Osmolality 294 mOsm/kg (285-295) 05/29/23 00:35 Calcium 9.7 mg/dL (8.5-10.5) 05/29/23 00:35 Total Bilirubin 0.2 mg/dL (0.15-1.2) 05/29/23 00:35 AST 7 U/L (0-32) 05/29/23 00:35 ALT 6 U/L (0-33) 05/29/23 00:35 Alkaline Phosphatase 93 U/L (35-105) 05/29/23 00:35 C-Reactive Protein 3.0 mg/L (0.0-4.9) 05/29/23 00:35 Total Protein 6.3 g/dL (6.6-8.7) L 05/29/23 00:35 Albumin 3.9 g/dL (3.5-5.2) 05/29/23 00:35 Globulin 2.4 g/dL (1.3-4.6) 05/29/23 00:35 Lipase 26 U/L (13-60) 05/29/23 00:35 Urine Color Yellow (Yellow) 05/29/23 00:20 Urine Appearance Clear (CLEAR) 05/29/23 00:20 Urine pH 7 (5-7) 05/29/23 00:20 Ur Specific [place] 1.005 (1.005-1.030) 05/29/23 00:20 Urine Protein Neg (Negative) 05/29/23 00:20 Urine Glucose (UA) Norm (Normal) 05/29/23 00:20 Urine Ketones Negative (Negative) 05/29/23 00:20 Urine Blood Neg (Negative) 05/29/23 00:20 Urine Nitrate Negative (Negative) 05/29/23 00:20 Urine Bilirubin Neg (Negative) 05/29/23 00:20 Urine Urobilinogen Norm mg/dL (Negative) 05/29/23 00:20 Ur Leukocyte Esterase Negative (Negative) 05/29/23 00:20 All radiology interpretation(s) finalized by discharge Discharge Plan Discharge Patient Disposition: Home Clinical Impression: Abdominal pain Condition: Stable Prescriptions: Continued ondansetron 4 mg tablet,disintegrating 4 mg PO Q6H PRN (Reason: nausea and vomiting) Qty: 14 0RF No Action Rexulti 1 mg tablet 1 mg PO DAILY Qty: 30 1RF Rx Instructions: Take one tablet daily at 8 PM lamotrigine 200 mg tablet 200 mg PO DAILY@06 Qty: 30 0RF Rx Instructions: Take one tablet by mouth every morning nystatin 100,000 unit/gram powder 1 applic topical BID Qty: 30 0RF Rx Instructions: apply locally to B/L groin folds albuterol sulfate 90 mcg/actuation HFA aerosol inhaler See Rx Instructions .ROUTE .COMPLEX Qty: 8.5 0RF Dose Instruction: INHALE 2 PUFFS BY MOUTH EVERY 6 HOURS NEEDED FOR SHORTNESS OF BREATH OR WHEEZING Rx Instructions: INHALE 2 PUFFS BY MOUTH EVERY 6 HOURS NEEDED FOR SHORTNESS OF BREATH OR WHEEZING montelukast [Singulair] 10 mg tablet 10 mg PO DAILY 90 Days Qty: 90 0RF Ingrezza 80 mg capsule 80 mg PO .hs Qty: 30 2RF Rx Instructions: Take one capsule by mouth every morning pantoprazole 40 mg tablet,delayed release (DR/EC) See Rx Instructions .ROUTE .COMPLEX Qty: 90 0RF Dose Instruction: TAKE 1 TABLET BY MOUTH DAILY AT 6 AM Rx Instructions: TAKE 1 TABLET BY MOUTH DAILY AT 6 AM Trintellix 20 mg tablet 20 mg PO DAILY Qty: 30 0RF Rx Instructions: Take one tablet once daily trazodone 100 mg tablet 200 mg PO DAILY PRN (Reason: insomnia) Qty: 60 0RF Rx Instructions: Take two tablets at bedtime, if needed for insomnia acetaminophen 500 mg Tablet 1,000 mg PO Q6H PRN (Reason: Pain) Compazine 25 mg suppository 25 mg MS BID PRN (Reason: nausea and vomiting) Qty: 20 0RF dicyclomine 10 mg capsule 10 mg PO TID Qty: 60 0RF Discharge Orders: Discharge ED (Routine); Ordered 05/29/23 Ordered By: Chivo Deleon Referrals: Dara Tavera FNP [Primary Care Provider] - 1-3 days Patient Instructions: Abdominal Pain (ED), Opioid Safety, Pain Management Activity Restrictions/Additional Instructions: See your doctor this week. Follow a liquid diet for the next 24 hours, then may increase as tolerated. Monitor for fever. Coding Level of Care Code ED Cotton Converter for Shellie Guallpa
== END 2023-05-29 03:33 | disposition home or self-care (01) ==
PROVIDERS: Emergency Provider Emergency Medicine; PCP Registered Nurse
DX: R10.84 Generalized abdominal pain (principal); F17.210 Nicotine dependence, cigarettes, uncomplicated; J44.9 Chronic obstructive pulmonary disease, unspecified; Z87.442 Personal history of urinary calculi
CPT/HCPCS: 36415; 74018; 80053; 81003; 83690; 85025; 86140; 93005; 96361; 96374; 96375; 96376; 99285; J2270; J2405; J7030

== ENCOUNTER 2023-06-06 19:30 | Emergency (ER) | payer MEDICARE, MEDICAID, SELFPAY ==
[2023-06-06 19:32] VITALS: BP 93/60; PULSE 94; RESP 22; TEMP 36.7; O2SAT 98; BMI 27.3
[2023-06-06 20:23] LABS: Alanine Aminotransferase 8 U/L (0-33); Albumin Level 4.2 g/dL (3.5-5.2); Alkaline Phosphatase 106 U/L (35-105); Aspartate Amino Transferase 10 U/L (0-32); Blood Urea Nitrogen 12 mg/dL (6-20); Calcium 9.5 mg/dL (8.5-10.5); Carbon Dioxide 24 mmol/L (22-29); Chloride 104 mmol/L (98-107); Globulin 2.2 g/dL (1.3-4.6); Glomerular Filtration Rate 46.6 mL/min (90-130); Glucose 88 mg/dL (65-115); Lipase 27 U/L (13-60); Osmolality Calculated 289 mOsm/kg (285-295); Sodium 140 mmol/L (136-145); Total Bilirubin 0.3 mg/dL (0.15-1.2); Total Protein 6.4 g/dL (6.6-8.7)
[2023-06-06 20:38] LABS: Basophils # 0.1 10^3/uL (0.0-0.1); Basophils % 0.9 %; Eosinophils # 0.2 10^3/uL (0.0-0.8); Eosinophils % 2.3 %; Hematocrit 45.2 % (36-47); Lymphocytes # 2.1 10^3/uL (0.8-4.8); Lymphocytes % 23.1 %; Mean Corpuscular HGB Conc 33.2 g/dL (30-55); Mean Corpuscular Volume 96.4 fl (85-98); Mean Platelet Volume 10.3 fL (7.4-10.4); Monocytes # 0.9 10^3/uL (0.2-0.9); Monocytes % 9.4 %; Neutrophils # 5.88 10^3/uL (1.8-7.7); Neutrophils % 64.1 %; Nucleated Red Blood Cells % 0 %; Platelet Count 207 10^3/cmm (157-399); Red Blood Count 4.69 10^6/uL (3.85-5.65); White Blood Count 9.17 10^3/uL (3.29-11.43)
[2023-06-06] MEDS: ondansetron 2 mg/ML SDV 2 mL 4 MG IM (20:52)
[2023-06-06] MEDS: morphine 4 mg/mL SDV 1 mL IM (20:53)
--- NOTE | 2023-06-06 21:01 | W.ED.ABDPA2 ---
HPI - Abdominal Pain General: Chief Complaint: Abdominal Pain Stated Complaint: abd pain Time Seen by Provider: 06/06/23 20:03 Source: patient Mode of arrival: ambulatory Limitations: no limitations History of Present Illness: 57-year-old female who is very well-known to the ER has a history of chronic abdominal pain and vomiting. States she has been having vomiting throughout the day today and states that she tried to call her GI physician but would not answer she is got diffuse abdominal pain as well she rates a 2 out of 10 denies any worsening proving factors. Associated Symptoms: Reports nausea and vomiting; Denies chills, diarrhea and fever(s) Review of Systems Const: Denies: fever(s), chills, body aches or change in appetite ENMT: Denies: throat pain or dental pain Card: Denies: chest pain Resp: Denies: dyspnea GI: Reports: abdominal pain, nausea and vomiting; Denies: diarrhea Musc: Denies: neck pain or back pain Skin/Breast: Denies: rash Neuro: Denies: headache(s) PFSH ED PFSH: Medical History Insomnia Tobacco use disorder Opioid dependence, uncomplicated Cannabis dependence, uncomplicated Psychiatric care Tardive dyskinesia Esophageal stricture Cystitis cystica Chronic gastritis without bleeding Restrictive lung disease Chronic back pain greater than 3 months duration Borderline personality disorder Schizoaffective disorder, bipolar type Urgency incontinence Neurogenic bladder Dysphagia COPD (chronic obstructive pulmonary disease) GERD without esophagitis Foreign body in bladder Bladder stone Chronic anxiety Surgical History H/O bladder repair surgery MESH REPAIR H/O esophagogastroduodenoscopy (09/21/20) H/O colonoscopy with polypectomy History of foot surgery sx in 2009. Screws placed by Dr. Don. S/P bronchoscopy with biopsy History of ureter stent History of breast biopsy Hx of cholecystectomy H/O: hysterectomy History of appendectomy Family History Mother No problems noted. Father No problems noted. Other Asthma Cancer Diabetes Heart disease Social History Smoking and tobacco/nicotine status: current every day tobacco/nicotine user cigarettes Packs smoked per day: 1 Years cigarettes smoked: 20 [ Other cigarette details: Hx of 1 PPD x 20 Years, started at age 27] Quit status (tobacco/nicotine): considering quitting Second hand smoke exposure: Yes Alcohol intake: never Substance/Drug Use: former Lives independently: Yes Household members: spouse Marital status: Number of children: 3 Current occupational status: disabled Do you think of yourself as: Straight/Heterosexual Current gender identity: Female Physical Exam Const: COMMON NORMALS: no acute distress, patient oriented x3 and healthy appearing HENMT: COMMON NORMALS: normocephalic and atraumatic HEAD & SCALP: normocephalic and atraumatic Eye: COMMON NORMALS: Equal, round and reactive pupils present and EOMs intact bilaterally PUPIL: Yes Equal, round and reactive pupils present Neck/C-Spine: COMMON NORMALS: full ROM and supple Chest: COMMONS NORMALS: normal inspection of the chest and normal palpation of entire chest wall Resp: COMMON NORMALS: normal respiratory effort, No retractions, No use of accessory muscles and clear to auscultation bilaterally AUSCULTATION: clear to auscultation bilaterally Cardio: COMMON NORMALS: regular rate, regular rhythm and No murmurs present (Cardio) RATE: regular rate RHYTHM: regular rhythm GI: COMMON NORMALS: Normal to inspection, nondistended, normoactive bowel sounds present, Soft to palpation, non-tender and no masses PALPATION: Yes Soft to palpation Extremity: COMMON NORMALS: normal to inspection and full ROM Neuro: COMMON NORMALS: patient oriented x3, moves all extremities and no focal motor deficits Psych: COMMON NORMALS: mental status grossly normal, Normal thought process present and cooperative THOUGHT PROCESS: Normal thought process present Skin: COMMON NORMALS: no rashes or lesions noted and no wounds GENERAL SKIN EXAM: no rashes or lesions noted Course Vital Signs: Vital signs: Vital Signs Temperature 98.1 F 06/06/23 19:32 Pulse Rate 94 06/06/23 19:32 Respiratory Rate 22 H 06/06/23 19:32 Blood Pressure 93/60 06/06/23 19:32 Pulse Oximetry 98 06/06/23 19:32 Oxygen Delivery Me thod Room Air 06/06/23 19:32 MDM - Abdominal Pain Medical Decision Making Patient presents here with abdominal pain along with vomiting that is chronic in nature. Patient feels much improved here her lab work here is normal she is stable for discharge she is to follow-up with PCP and return if worsening. Medical Records I reviewed the patient's medical records. Lab Data I reviewed the patient's lab results. 06/06/23 20:32 06/06/23 19:54 Labs/Radiology: Laboratory Results WBC 9.17 10^3/uL (3.29-11.43) 06/06/23 20:32 RBC 4.69 10^6/uL (3.85-5.65) 06/06/23 20:32 Hgb 15.00 g/dL (11.27-16.99) 06/06/23 20:32 Hct 45.2 % (36-47) 06/06/23 20:32 MCV 96.4 fl (85-98) 06/06/23 20:32 MCH 32.0 pg (27-33) 06/06/23 20:32 MCHC 33.2 g/dL (30-55) 06/06/23 20:32 RDW 14.0 % (12.1-15.1) 06/06/23 20:32 Plt Count 207 10^3/cmm (157-399) 06/06/23 20:32 MPV 10.3 fL (7.4-10.4) 06/06/23 20:32 Neut % (Auto) 64.1 % 06/06/23 20:32 Lymph % (Auto) 23.1 % 06/06/23 20:32 [place] % (Auto) 9.4 % 06/06/23 20:32 Eos % (Auto) 2.3 % 06/06/23 20:32 Baso % (Auto) 0.9 % 06/06/23 20:32 Neut # (Auto) 5.88 10^3/uL (1.8-7.7) 06/06/23 20:32 Lymph # (Auto) 2.1 10^3/uL (0.8-4.8) 06/06/23 20:32 [place] # (Auto) 0.9 10^3/uL (0.2-0.9) 06/06/23 20:32 Eos # (Auto) 0.2 10^3/uL (0.0-0.8) 06/06/23 20:32 Baso # (Auto) 0.1 10^3/uL (0.0-0.1) 06/06/23 20:32 Nucleated RBC % (auto) 0 % 06/06/23 20:32 Nucleated RBCs # 0.0 /100WBC 06/06/23 20:32 Sodium 140 mmol/L (136-145) 06/06/23 19:54 Potassium 4.0 mmol/L (3.5-5.1) 06/06/23 19:54 Chloride 104 mmol/L (98-107) 06/06/23 19:54 Carbon Dioxide 24 mmol/L (22-29) 06/06/23 19:54 Anion Gap 16.0 (5-19) 06/06/23 19:54 BUN 12 mg/dL (6-20) 06/06/23 19:54 Creatinine 1.2 mg/dL (0.5-0.9) H 06/06/23 19:54 GFR Calculation 46.6 mL/min (90-130) L 06/06/23 19:54 Glucose 88 mg/dL (65-115) 06/06/23 19:54 Calculated Osmolality 289 mOsm/kg (285-295) 06/06/23 19:54 Calcium 9.5 mg/dL (8.5-10.5) 06/06/23 19:54 Total Bilirubin 0.3 mg/dL (0.15-1.2) 06/06/23 19:54 AST 10 U/L (0-32) 06/06/23 19:54 ALT 8 U/L (0-33) 06/06/23 19:54 Alkaline Phosphatase 106 U/L (35-105) H 06/06/23 19:54 Total Protein 6.4 g/dL (6.6-8.7) L 06/06/23 19:54 Albumin 4.2 g/dL (3.5-5.2) 06/06/23 19:54 Globulin 2.2 g/dL (1.3-4.6) 06/06/23 19:54 Lipase 27 U/L (13-60) 06/06/23 19:54 No radiology studies performed this visit Discharge Plan Discharge Patient Disposition: Home Clinical Impression: Abdominal pain Qualifiers: Abdominal location: generalized Qualified Code(s): R10.84 - Generalized abdominal pain Vomiting Qualifiers: Vomiting type: unspecified Nausea presence: with nausea Qualified Code(s): R11.2 - Nausea with vomiting, unspecified Condition: Stable Prescriptions: New ondansetron 4 mg tablet,disintegrating 4 mg PO Q6H PRN (Reason: nausea and vomiting) Qty: 14 0RF No Action Rexulti 1 mg tablet 1 mg PO DAILY Qty: 30 1RF Rx Instructions: Take one tablet daily at 8 PM nystatin 100,000 unit/gram powder 1 applic topical BID Qty: 30 0RF Rx Instructions: apply locally to B/L groin folds albuterol sulfate 90 mcg/actuation HFA aerosol inhaler See Rx Instructions .ROUTE .COMPLEX Qty: 8.5 0RF Dose Instruction: INHALE 2 PUFFS BY MOUTH EVERY 6 HOURS NEEDED FOR SHORTNESS OF BREATH OR WHEEZING Rx Instructions: INHALE 2 PUFFS BY MOUTH EVERY 6 HOURS NEEDED FOR SHORTNESS OF BREATH OR WHEEZING montelukast [Singulair] 10 mg tablet 10 mg PO DAILY 90 Days Qty: 90 0RF Ingrezza 80 mg capsule 80 mg PO .hs Qty: 30 2RF Rx Instructions: Take one capsule by mouth every morning pantoprazole 40 mg tablet,delayed release (DR/EC) See Rx Instructions .ROUTE .COMPLEX Qty: 90 0RF Dose Instruction: TAKE 1 TABLET BY MOUTH DAILY AT 6 AM Rx Instructions: TAKE 1 TABLET BY MOUTH DAILY AT 6 AM Trintellix 20 mg tablet 20 mg PO DAILY Qty: 30 0RF Rx Instructions: Take one tablet once daily trazodone 100 mg tablet 200 mg PO DAILY PRN (Reason: insomnia) Qty: 60 0RF Rx Instructions: Take two tablets at bedtime, if needed for insomnia lamotrigine 200 mg tablet 200 mg PO DAILY@06 Qty: 30 0RF Rx Instructions: Take one tablet by mouth every morning acetaminophen 500 mg Tablet 1,000 mg PO Q6H PRN (Reason: Pain) Compazine 25 mg suppository 25 mg OR BID PRN (Reason: nausea and vomiting) Qty: 20 0RF ondansetron 4 mg tablet,disintegrating 4 mg PO Q6H PRN (Reason: nausea and vomiting) Qty: 14 0RF dicyclomine 10 mg capsule 10 mg PO TID Qty: 60 0RF Discharge Orders: Discharge ED (Routine); Ordered 12/19/23 Ordered By: Damien Urbina Referrals: Dara Tavera, [employer] [Primary Care Provider] - Discharge Diet: Advance as tolerated Discharge Activity: Resume usual activity Patient Instructions: Acute Nausea and Vomiting (ED), Abdominal Pain (ED) Coding Level of Care Code ED Application Integration Specialist for Shellie Guallpa
== END 2023-06-06 21:39 | disposition home or self-care (01) ==
PROVIDERS: Emergency Provider Emergency Medicine; PCP Registered Nurse
DX: R10.84 Generalized abdominal pain (principal); R11.2 Nausea with vomiting, unspecified; F17.210 Nicotine dependence, cigarettes, uncomplicated; J44.9 Chronic obstructive pulmonary disease, unspecified
CPT/HCPCS: 36415; 80053; 83690; 85025; 96372; 99284; J2270; J2405

== ENCOUNTER 2023-06-07 02:38 | Emergency (ER) | payer MEDICARE, MEDICAID, SELFPAY ==
--- NOTE | 2023-06-07 02:41 | XRR_ITS ---
PROCEDURE INFORMATION: Exam: XR Chest Exam date and time: 06/07/2023 2:58 AM Age: 57 years old Clinical indication: Chest wall pain; Patient HX: Anterior cp through to back , SOB, recent has had a cough, smoker; Additional info: Chest pain TECHNIQUE: Imaging protocol: Radiologic exam of the chest. Views: 1 view. COMPARISON: CR (CHEST, ) 05/14/2023 10:20 PM FINDINGS: Lungs: Unremarkable. No consolidation. Pleural spaces: Unremarkable. No pleural effusion. No pneumothorax. Heart/Mediastinum: Unremarkable. No cardiomegaly. Bones/joints: Unremarkable. XR/XR chest 1V portable [id number] IMPRESSION: No acute findings.
--- NOTE | 2023-06-07 02:41 | ECG_ITS ---
[facility] Test Date: 2023-06-07 Pat Name: Latesha Wilhelm Department: Room: Gender: Female Automatic [employer] Turner And Former: : 1965 Requested By: Colby Fisher Order Number: [id number] Alice MD: Freida Sampson M.D. Measurements Intervals [place] Rate: 82 P: 57 [place]: 140 QRS: 12 QRSD: 90 T: 55 QT: 371 QTc: 434 Interpretive Statements SINUS RHYTHM Compared to ECG 05/29/2023 01:12:51 Sinus bradycardia no longer present Incomplete right bundle-branch block no longer present Electronically Signed On 06-07-2023 11:05:29 HEALTH COMPANION by Freida Sampson M.D. [email or web address]
[2023-06-07 02:46] VITALS: BP 118/71; PULSE 83; RESP 16; TEMP 37.1; O2SAT 100; BMI 27.3
--- NOTE | 2023-06-07 02:50 | ED_ITS ---
HPI - Chest Pain 2 General: Chief Complaint: Chest Pain Stated Complaint: Chest Pains Time Seen by Provider: 06/07/23 02:41 History of Present Illness: Patient presented from the waiting room to complain of chest pain that started substernally and radiated to her back. Patient says she has had this before and has been worked up for it before. Patient was just in in the waiting room from discharge earlier today for abdominal pain. Patient denies any shortness of breath diaphoresis etc. Patient does not know what causes this or makes it go away. Patient is already asking for pain medicine just as soon as I enter the room. Review of Systems 2 General: Reports: 10 or more systems reviewed and unremarkable except in HPI and below PFSH ED 2 PFSH: Medical History Insomnia Tobacco use disorder Opioid dependence, uncomplicated Cannabis dependence, uncomplicated Psychiatric care Tardive dyskinesia Esophageal stricture Cystitis cystica Chronic gastritis without bleeding Restrictive lung disease Chronic back pain greater than 3 months duration Borderline personality disorder Schizoaffective disorder, bipolar type Urgency incontinence Neurogenic bladder Dysphagia COPD (chronic obstructive pulmonary disease) GERD without esophagitis Foreign body in bladder Bladder stone Chronic anxiety Surgical History H/O bladder repair surgery MESH REPAIR H/O esophagogastroduodenoscopy (09/21/20) H/O colonoscopy with polypectomy History of foot surgery sx in 2009. Screws placed by Dr. Don. S/P bronchoscopy with biopsy History of ureter stent History of breast biopsy Hx of cholecystectomy H/O: hysterectomy History of appendectomy Family History Mother No problems noted. Father No problems noted. Other Asthma Cancer Diabetes Heart disease Social History Smoking and tobacco/nicotine status: current every day tobacco/nicotine user cigarettes Packs smoked per day: 1 Years cigarettes smoked: 20 [ Other cigarette details: Hx of 1 PPD x 20 Years, started at age 27] Quit status (tobacco/nicotine): considering quitting Second hand smoke exposure: Yes Alcohol intake: never Substance/Drug Use: former Lives independently: Yes Household members: spouse Marital status: Number of children: 3 Current occupational status: disabled Do you think of yourself as: Straight/Heterosexual Current gender identity: Female Physical Exam 2 Const: COMMON NORMALS: no acute distress, average body habitus, patient oriented x3, no limitations, healthy appearing, alert and well nourished HENMT: COMMON NORMALS: normocephalic, atraumatic, hearing grossly normal bilaterally, external ears normal, Normal external nose present, moist oral mucous membranes and oropharynx normal HEAD & SCALP: normocephalic and atraumatic NOSE: Normal external nose present EXTERNAL EAR: Yes external ears normal Neck/C-Spine: COMMON NORMALS: no JVD Chest: COMMONS NORMALS: normal inspection of the chest and normal palpation of entire chest wall Resp: COMMON NORMALS: normal respiratory effort, No retractions, No use of accessory muscles and clear to auscultation bilaterally AUSCULTATION: clear to auscultation bilaterally Cardio: COMMON NORMALS: no JVD, regular rate, regular rhythm, S1 normal heart sound present, S2 normal heart sound present, No gallops present (Cardio), No clicks present (Cardio), No murmurs present (Cardio) and No rub (Cardio) R ATE: regular rate RHYTHM: regular rhythm HEART SOUNDS: S1 normal heart sound present and S2 normal heart sound present GI: COMMON NORMALS: Normal to inspection, nondistended, normoactive bowel sounds present, Soft to palpation, non-tender, No hepatosplenomegaly present and no masses PALPATION: Yes Soft to palpation and Yes No hepatosplenomegaly present Neuro: COMMON NORMALS: patient oriented x3 SENSORIUM/ORIENTATION: Yes alert Course 2 Vital Signs: Vital signs: Vital Signs Temperature 98.7 F 06/07/23 02:46 Pulse Rate 83 06/07/23 02:46 Respiratory Rate 16 06/07/23 02:46 Blood Pressure 118/71 06/07/23 02:46 Pulse Oximetry 100 06/07/23 02:46 Oxygen Delivery Me thod Room Air 06/07/23 02:46 MDM - Chest Pain Medical Decision Making While patient was sitting in the waiting room she developed some chest pain. Patient was worked up in a standard chest pain fashion with serial EKGs and serial enzymes. All of which were benign. Second troponin is pending. Anticipate that will be negative. 2 EKGs did not have any acute changes. Anticipate patient be discharged home. Patient can follow-up with her PCP and/or manager environmental within the next 7 days on an as-needed basis. Differential Diagnosis Unlikely acute massive pulmonary embolism, acute respiratory failure, acute myocardial infarction, cardiac arrest or sudden cardiac Medical Records I reviewed the patient's medical records. Lab Data I reviewed the patient's lab results. 06/07/23 03:23 06/07/23 02:59 Radiology Impressions Chest X-Ray 06/07/23 02:41 IMPRESSION: No acute findings. Laboratory Results WBC 14.19 10^3/uL (3.29-11.43) H 06/07/23 03:23 Corrected WBC Cancelled 06/07/23 02:59 RBC 4.37 10^6/uL (3.85-5.65) 06/07/23 03:23 Hgb 14.40 g/dL (11.27-16.99) 06/07/23 03:23 Hct 42.3 % (36-47) 06/07/23 03:23 MCV 96.8 fl (85-98) 06/07/23 03:23 MCH 33.0 pg (27-33) 06/07/23 03:23 MCHC 34.0 g/dL (30-55) 06/07/23 03:23 RDW 14.1 % (12.1-15.1) 06/07/23 03:23 Plt Count 182 10^3/cmm (157-399) 06/07/23 03:23 MPV 11.2 fL (7.4-10.4) H 06/07/23 03:23 Gran % Cancelled 06/07/23 02:59 Neut % (Auto) 78.1 % 06/07/23 03:23 Lymph % (Auto) 11.6 % 06/07/23 03:23 [place] % (Auto) 7.8 % 06/07/23 03:23 Eos % (Auto) 1.3 % 06/07/23 03:23 Baso % (Auto) 0.7 % 06/07/23 03:23 Neut # (Auto) 11.09 10^3/uL (1.8-7.7) H 06/07/23 03:23 Lymph # (Auto) 1.7 10^3/uL (0.8-4.8) 06/07/23 03:23 [place] # (Auto) 1.1 10^3/uL (0.2-0.9) H 06/07/23 03:23 Eos # (Auto) 0.2 10^3/uL (0.0-0.8) 06/07/23 03:23 Baso # (Auto) 0.1 10^3/uL (0.0-0.1) 06/07/23 03:23 Absolute Gran (auto) Cancelled 06/07/23 02:59 Nucleated RBC % (auto) 0 % 06/07/23 03:23 Nucleated RBCs # 0.0 /100WBC 06/07/23 03:23 Sodium 136 mmol/L (136-145) 06/07/23 02:59 Potassium 3.9 mmol/L (3.5-5.1) 06/07/23 02:59 Chloride 101 mmol/L (98-107) 06/07/23 02:59 Carbon Dioxide 23 mmol/L (22-29) 06/07/23 02:59 Anion Gap 15.9 (5-19) 06/07/23 02:59 BUN 15 mg/dL (6-20) 06/07/23 02:59 Creatinine 1.1 mg/dL (0.5-0.9) H 06/07/23 02:59 GFR Calculation 51.6 mL/min (90-130) L 06/07/23 02:59 Glucose 73 mg/dL (65-115) 06/07/23 02:59 Calculated Osmolality 281 mOsm/kg (285-295) L 06/07/23 02:59 Calcium 9.4 mg/dL (8.5-10.5) 06/07/23 02:59 Total Bilirubin 0.2 mg/dL (0.15-1.2) 06/07/23 02:59 AST 10 U/L (0-32) 06/07/23 02:59 ALT 8 U/L (0-33) 06/07/23 02:59 Alkaline Phosphatase 108 U/L (35-105) H 06/07/23 02:59 Troponin T Baseline 8 ng/L (0-10) 06/07/23 02:59 Total Protein 6.6 g/dL (6.6-8.7) 06/07/23 02:59 Albumin 4.3 g/dL (3.5-5.2) 06/07/23 02:59 Globulin 2.3 g/dL (1.3-4.6) 06/07/23 02:59 All radiology interpretation(s) finalized by discharge EKG Data EKG 1: I personally reviewed and interpreted this EKG as follows: EKG interpretation date: 06/07/23 EKG interpretation time: 02:45 Prior EKG tracings: not available for review Interpretation: EKG showed ventricular rate 82 beats a minute, IL interval 140, QRS duration 90, QTc of 4 9, normal sinus rhythm Discharge Plan Discharge Patient Disposition: Home Clinical Impression: Atypical chest pain Condition: Stable Prescriptions: No Action Rexulti 1 mg tablet 1 mg PO DAILY Qty: 30 1RF Rx Instructions: Take one tablet daily at 8 PM nystatin 100,000 unit/gram powder 1 applic topical BID Qty: 30 0RF Rx Instructions: apply locally to B/L groin folds albuterol sulfate 90 mcg/actuation HFA aerosol inhaler See Rx Instructions .ROUTE .COMPLEX Qty: 8.5 0RF Dose Instruction: INHALE 2 PUFFS BY MOUTH EVERY 6 HOURS NEEDED FOR SHORTNESS OF BREATH OR WHEEZING Rx Instructions: INHALE 2 PUFFS BY MOUTH EVERY 6 HOURS NEEDED FOR SHORTNESS OF BREATH OR WHEEZING montelukast [Singulair] 10 mg tablet 10 mg PO DAILY 90 Days Qty: 90 0RF Ingrezza 80 mg capsule 80 mg PO .hs Qty: 30 2RF Rx Instructions: Take one capsule by mouth every morning pantoprazole 40 mg tablet,delayed release (DR/EC) See Rx Instructions .ROUTE .COMPLEX Qty: 90 0RF Dose Instruction: TAKE 1 TABLET BY MOUTH DAILY AT 6 AM Rx Instructions: TAKE 1 TABLET BY MOUTH DAILY AT 6 AM Trintellix 20 mg tablet 20 mg PO DAILY Qty: 30 0RF Rx Instructions: Take one tablet once daily trazodone 100 mg tablet 200 mg PO DAILY PRN (Reason: insomnia) Qty: 60 0RF Rx Instructions: Take two tablets at bedtime, if needed for insomnia lamotrigine 200 mg tablet 200 mg PO DAILY@06 Qty: 30 0RF Rx Instructions: Take one tablet by mouth every morning acetaminophen 500 mg Tablet 1,000 mg PO Q6H PRN (Reason: Pain) Compazine 25 mg suppository 25 mg [place] BID PRN (Reason: nausea and vomiting) Qty: 20 0RF ondansetron 4 mg tablet,disintegrating 4 mg PO Q6H PRN (Reason: nausea and vomiting) Qty: 14 0RF ondansetron 4 mg tablet,disintegrating 4 mg PO Q6H PRN (Reason: nausea and vomiting) Qty: 14 0RF dicyclomine 10 mg capsule 10 mg PO TID Qty: 60 0RF Discharge Orders: Discharge ED (Routine); Ordered 06/07/23 Ordered By: Colby Fisher Referrals: Dara Tavera, NURSE COMPANION [Primary Care Provider] - 1 week Patient Instructions: Chest Pain (ED) Activity Restrictions/Additional Instructions: Your workup in ER for chest pain was negative. Did not show any signs of acute cause of cardiac chest pain. Please follow-up with your family practice physician and/or manager environmental within the next 7 days for further evaluation testing. If your pain returns or worsens please return to the ER for further evaluation. Coding Level of Care Code ED Drug Safety Associate for Shellie Guallpa
[2023-06-07 03:26] LABS: Alanine Aminotransferase 8 U/L (0-33); Albumin Level 4.3 g/dL (3.5-5.2); Alkaline Phosphatase 108 U/L (35-105); Anion Gap 15.9 (5-19); Aspartate Amino Transferase 10 U/L (0-32); Blood Urea Nitrogen 15 mg/dL (6-20); Calcium 9.4 mg/dL (8.5-10.5); Carbon Dioxide 23 mmol/L (22-29); Chloride 101 mmol/L (98-107); Globulin 2.3 g/dL (1.3-4.6); Glomerular Filtration Rate 51.6 mL/min (90-130); Glucose 73 mg/dL (65-115); Osmolality Calculated 281 mOsm/kg (285-295); Potassium 3.9 mmol/L (3.5-5.1); Sodium 136 mmol/L (136-145); Total Bilirubin 0.2 mg/dL (0.15-1.2); Total Protein 6.6 g/dL (6.6-8.7); Troponin(5th) Baseline 8 ng/L (0-10)
[2023-06-07 03:26] LABS: Basophils # 0.1 10^3/uL (0.0-0.1); Basophils % 0.7 %; Eosinophils # 0.2 10^3/uL (0.0-0.8); Eosinophils % 1.3 %; Hematocrit 42.3 % (36-47); Lymphocytes # 1.7 10^3/uL (0.8-4.8); Lymphocytes % 11.6 %; Mean Corpuscular Volume 96.8 fl (85-98); Mean Platelet Volume 11.2 fL (7.4-10.4); Monocytes # 1.1 10^3/uL (0.2-0.9); Monocytes % 7.8 %; Neutrophils # 11.09 10^3/uL (1.8-7.7); Neutrophils % 78.1 %; Nucleated Red Blood Cells % 0 %; Platelet Count 182 10^3/cmm (157-399); Red Blood Count 4.37 10^6/uL (3.85-5.65); Red Cell Distribution Width 14.1 % (12.1-15.1); White Blood Count 14.19 10^3/uL (3.29-11.43)
[2023-06-07] MEDS: lidocaine 2% viscous 15 ML, aluminum-mag hydrox-simethicon 30 ML, sucralfate oral liq 1 GM PO (03:30)
[2023-06-07 03:44] LABS: Slide Review Slide Review Perform
--- NOTE | 2023-06-07 04:43 | ECG_ITS ---
[facility] Test Date: 2023-06-07 Pat Name: Latesha Wilhelm Department: Room: Gender: Female Clerical Support Specialist: : 1965 Requested By: Colby Fisher Order Number: [id number] Alice MD: Freida Sampson M.D. Measurements Intervals [place] Rate: 65 P: 60 PA: 163 QRS: 29 QRSD: 91 T: 50 QT: 422 QTc: 441 Interpretive Statements SINUS RHYTHM Compared to ECG 06/07/2023 02:45:05 No significant changes Electronically Signed On 06-07-2023 11:06:08 CLERICAL SUPPORT SPECIALIST by Freida Sampson M.D. [id number]
[2023-06-07 05:36] LABS: Troponin 5 2HR 7.32 ng/L (0-10)
[2023-06-07 05:39] LABS: Troponin 5 2HR Delta -0.68 ABS# (0-10)
[2023-06-07 05:52] VITALS: BP 116/76; PULSE 62; RESP 18; O2SAT 97
== END 2023-06-07 05:53 | disposition home or self-care (01) ==
PROVIDERS: Emergency Provider Emergency Medicine; PCP Registered Nurse
DX: R07.89 Other chest pain (principal); F17.210 Nicotine dependence, cigarettes, uncomplicated; J44.9 Chronic obstructive pulmonary disease, unspecified
CPT/HCPCS: 36415; 71045; 80053; 84484; 85025; 93005; 99285

== ENCOUNTER 2023-06-20 19:11 | Emergency (ER) | payer MEDICARE, MEDICAID, SELFPAY ==
[2023-06-20 19:27] VITALS: BP 97/67; PULSE 106; RESP 17; TEMP 36.8; O2SAT 98; BMI 26.4
--- NOTE | 2023-06-20 20:12 | ED_ITS ---
HPI - Abdominal Pain 2 General: Chief Complaint: Abdominal Pain Stated Complaint: abd pain Time Seen by Provider: 06/20/23 19:26 Source: patient Mode of arrival: ambulatory Limitations: no limitations History of Present Illness: 57-year-old female is very well-known to the ER has a long history of chronic abdominal pain states she has been having increasing pain over the last 3 days with some nausea vomiting she denies any fevers denies any worsening improving factors denies any diarrhea. Associated Symptoms: Reports nausea and vomiting; Denies chills, diarrhea and fever(s) Review of Systems 2 Const: Denies: fever(s), chills, body aches or change in appetite ENMT: Denies: throat pain or dental pain Card: Denies: chest pain Resp: Denies: dyspnea GI: Reports: abdominal pain, nausea and vomiting; Denies: diarrhea Musc: Denies: neck pain or back pain Skin/Breast: Denies: rash Neuro: Denies: headache(s) PFSH ED 2 PFSH: Medical History Insomnia Tobacco use disorder Opioid dependence, uncomplicated Cannabis dependence, uncomplicated Psychiatric care Tardive dyskinesia Esophageal stricture Cystitis cystica Chronic gastritis without bleeding Restrictive lung disease Chronic back pain greater than 3 months duration Borderline personality disorder Schizoaffective disorder, bipolar type Urgency incontinence Neurogenic bladder Dysphagia COPD (chronic obstructive pulmonary disease) GERD without esophagitis Foreign body in bladder Bladder stone Chronic anxiety Surgical History H/O bladder repair surgery MESH REPAIR H/O esophagogastroduodenoscopy (09/21/20) H/O colonoscopy with polypectomy History of foot surgery sx in 2009. Screws placed by Dr. Don. S/P bronchoscopy with biopsy History of ureter stent History of breast biopsy Hx of cholecystectomy H/O: hysterectomy History of appendectomy Family History Mother No problems noted. Father No problems noted. Other Asthma Cancer Diabetes Heart disease Social History Smoking and tobacco/nicotine status: current every day tobacco/nicotine user cigarettes Packs smoked per day: 1 Years cigarettes smoked: 20 [ Other cigarette details: Hx of 1 PPD x 20 Years, started at age 27] Quit status (tobacco/nicotine): considering quitting Second hand smoke exposure: Yes Alcohol intake: never Substance/Drug Use: former Lives independently: Yes Household members: spouse Marital status: Number of children: 3 Current occupational status: disabled Do you think of yourself as: Straight/Heterosexual Current gender identity: Female Physical Exam 2 Const: COMMON NORMALS: no acute distress, patient oriented x3 and healthy appearing HENMT: COMMON NORMALS: normocephalic and atraumatic HEAD & SCALP: n ormocephalic and atraumatic Neck/C-Spine: COMMON NORMALS: full ROM and supple Chest: COMMONS NORMALS: normal inspection of the chest Resp: COMMON NORMALS: normal respiratory effort Cardio: COMMON NORMALS: regular rate, regular rhythm and No murmurs present (Cardio) RATE: regular rate RHYTHM: regular rhythm GI: COMMON NORMALS: Normal to inspection, nondistended, normoactive bowel sounds present, Soft to palpation, non-tender and no masses PALPATION: Yes Soft to palpation Extremity: COMMON NORMALS: normal to inspection and full ROM Neuro: COMMON NORMALS: patient oriented x3, moves all extremities and no focal motor deficits Psych: COMMON NORMALS: mental status grossly normal, Normal thought process present and cooperative THOUGHT PROCESS: Normal thought process present Skin: COMMON NORMALS: no rashes or lesions noted and no wounds GENERAL SKIN EXAM: no rashes or lesions noted Course 2 Vital Signs: Vital signs: Vital Signs Temperature 98.2 F 06/20/23 19:27 Pulse Rate 71 06/20/23 21:00 Respiratory Rate 16 06/20/23 21:00 Blood Pressure 109/68 06/20/23 21:00 Pulse Oximetry 90 06/20/23 21:00 Oxygen Delivery Me thod Room Air 06/20/23 19:27 MDM - Abdominal Pain Medical Decision Making Patient presents here with abdominal pain is chronic in nature blood work looks normal no signs of acute surgical abdomen patient is stable for discharge follow-up PCP return if worsening. Medical Records I reviewed the patient's medical records. Lab Data I reviewed the patient's lab results. 06/20/23 20:33 06/20/23 20:33 Labs/Radiology: Laboratory Results WBC 7.35 10^3/uL (3.29-11.43) 06/20/23 20:33 Corrected WBC Cancelled 06/20/23 19:42 RBC 4.56 10^6/uL (3.85-5.65) 06/20/23 20:33 Hgb 14.50 g/dL (11.27-16.99) 06/20/23 20:33 Hct 42.5 % (36-47) 06/20/23 20:33 MCV 93.2 fl (85-98) 06/20/23 20: MCH 31.8 pg (27-33) 06/20/23 20: MCHC 34.1 g/dL (30-55) 06/20/23 20:33 RDW 13.7 % (12.1-15.1) 06/20/23 20: Plt Count 211 10^3/cmm (157-399) 06/20/23 20: MPV 10.5 fL (7.4-10.4) H 06/20/23 20:33 Gran % Cancelled 06/20/23 19:42 Neut % (Auto) 56.5 % 06/20/23 20:33 Lymph % (Auto) 30.3 % 06/20/23 20:33 [place] % (Auto) 10.3 % 06/20/23 20:33 Eos % (Auto) 1.8 % 06/20/23 20:33 Baso % (Auto) 0.8 % 06/20/23 20:33 Neut # (Auto) 4.15 10^3/uL (1.8-7.7) 06/20/23 20:33 Lymph # (Auto) 2.2 10^3/uL (0.8-4.8) 06/20/23 20:33 [place] # (Auto) 0.8 10^3/uL (0.2-0.9) 06/20/23 20:33 Eos # (Auto) 0.1 10^3/uL (0.0-0.8) 06/20/23 20:33 Baso # (Auto) 0.1 10^3/uL (0.0-0.1) 06/20/23 20:33 Absolute Gran (auto) Cancelled 06/20/23 19:42 Nucleated RBC % (auto) 0 % 06/20/23 20:33 Nucleated RBCs # 0.0 /100WBC 06/20/23 20:33 Sodium 138 mmol/L (136-145) 06/20/23 20:33 Potassium 3.7 mmol/L (3.5-5.1) 06/20/23 20:33 Chloride 104 mmol/L (98-107) 06/20/23 20:33 Carbon Dioxide 21 mmol/L (22-29) L 06/20/23 20:33 Anion Gap 16.7 (5-19) 06/20/23 20:33 BUN 9 mg/dL (6-20) 06/20/23 20:33 Creatinine 1.0 mg/dL (0.5-0.9) H 06/20/23 20:33 GFR Calculation 57.6 mL/min (90-130) L 06/20/23 20:33 Glucose 96 mg/dL (65-115) 06/20/23 20:33 Calculated Osmolality 285 mOsm/kg (285-295) 06/20/23 20:33 Calcium 9.4 mg/dL (8.5-10.5) 06/20/23 20:33 Total Bilirubin 0.3 mg/dL (0.15-1.2) 06/20/23 20:33 AST 9 U/L (0-32) 06/20/23 20:33 ALT < 5 U/L (0-33) 06/20/23 20:33 Alkaline Phosphatase 101 U/L (35-105) 06/20/23 20:33 Total Protein 6.2 g/dL (6.6-8.7) L 06/20/23 20:33 Albumin 3.6 g/dL (3.5-5.2) 06/20/23 20:33 Globulin 2.6 g/dL (1.3-4.6) 06/20/23 20:33 Lipase 21 U/L (13-60) 06/20/23 20:33 No radiology studies performed this visit Discharge Plan Discharge Patient Disposition: Home Clinical Impression: Abdominal pain Condition: Stable Prescriptions: No Action nystatin 100,000 unit/gram powder 1 applic topical BID Qty: 30 0RF Rx Instructions: apply locally to B/L groin folds albuterol sulfate 90 mcg/actuation HFA aerosol inhaler See Rx Instructions .ROUTE .COMPLEX Qty: 8.5 0RF Dose Instruction: INHALE 2 PUFFS BY MOUTH EVERY 6 HOURS NEEDED FOR SHORTNESS OF BREATH OR WHEEZING Rx Instructions: INHALE 2 PUFFS BY MOUTH EVERY 6 HOURS NEEDED FOR SHORTNESS OF BREATH OR WHEEZING montelukast [Singulair] 10 mg tablet 10 mg PO DAILY 90 Days Qty: 90 0RF Ingrezza 80 mg capsule 80 mg PO .hs Qty: 30 2RF Rx Instructions: Take one capsule by mouth every morning pantoprazole 40 mg tablet,delayed release (DR/EC) See Rx Instructions .ROUTE .COMPLEX Qty: 90 0RF Dose Instruction: TAKE 1 TABLET BY MOUTH DAILY AT 6 AM Rx Instructions: TAKE 1 TABLET BY MOUTH DAILY AT 6 AM lamotrigine 200 mg tablet 200 mg PO DAILY@06 Qty: 30 0RF Rx Instructions: Take one tablet by mouth every morning Rexulti 1 mg tablet 1 mg PO DAILY Qty: 30 0RF Rx Instructions: Take one tablet daily at 8 PM trazodone 100 mg tablet 200 mg PO DAILY PRN (Reason: insomnia) Qty: 60 0RF Rx Instructions: Take two tablets at bedtime, if needed for insomnia Trintellix 20 mg tablet 20 mg PO DAILY Qty: 30 0RF Rx Instructions: Take one tablet once daily acetaminophen 500 mg Tablet 1,000 mg PO Q6H PRN (Reason: Pain) Compazine 25 mg suppository 25 mg [place] BID PRN (Reason: nausea and vomiting) Qty: 20 0RF ondansetron 4 mg tablet,disintegrating 4 mg PO Q6H PRN (Reason: nausea and vomiting) Qty: 14 0RF ondansetron 4 mg tablet,disintegrating 4 mg PO Q6H PRN (Reason: nausea and vomiting) Qty: 14 0RF dicyclomine 10 mg capsule 10 mg PO TID Qty: 60 0RF Discharge Orders: Discharge ED (Routine); Ordered 06/20/23 Ordered By: Damien Urbina Referrals: Dara Tavera FNP [Primary Care Provider] - 1-3 days Discharge Diet: Advance as tolerated Discharge Activity: Resume usual activity Patient Instructions: Abdominal Pain (ED) Coding Level of Care Code ED Radiotelegrapher for Shellie Guallpa
[2023-06-20 20:37] LABS: Basophils # 0.1 10^3/uL (0.0-0.1); Basophils % 0.8 %; Eosinophils # 0.1 10^3/uL (0.0-0.8); Eosinophils % 1.8 %; Hematocrit 42.5 % (36-47); Lymphocytes # 2.2 10^3/uL (0.8-4.8); Lymphocytes % 30.3 %; Mean Corpuscular HGB Conc 34.1 g/dL (30-55); Mean Corpuscular Hemoglobin 31.8 pg (27-33); Mean Corpuscular Volume 93.2 fl (85-98); Mean Platelet Volume 10.5 fL (7.4-10.4); Monocytes # 0.8 10^3/uL (0.2-0.9); Monocytes % 10.3 %; Neutrophils # 4.15 10^3/uL (1.8-7.7); Neutrophils % 56.5 %; Nucleated Red Blood Cells % 0 %; Platelet Count 211 10^3/cmm (157-399); Red Blood Count 4.56 10^6/uL (3.85-5.65); Red Cell Distribution Width 13.7 % (12.1-15.1); White Blood Count 7.35 10^3/uL (3.29-11.43)
[2023-06-20] MEDS: morphine 4 mg/mL SDV 1 mL IM (20:49)
[2023-06-20] MEDS: ondansetron 2 mg/ML SDV 2 mL 4 MG IM (20:49)
[2023-06-20 20:51] VITALS: BP 118/65; PULSE 73; RESP 16; O2SAT 91
[2023-06-20 20:54] LABS: Alanine Aminotransferase < 5 U/L (0-33); Albumin Level 3.6 g/dL (3.5-5.2); Alkaline Phosphatase 101 U/L (35-105); Anion Gap 16.7 (5-19); Aspartate Amino Transferase 9 U/L (0-32); Blood Urea Nitrogen 9 mg/dL (6-20); Calcium 9.4 mg/dL (8.5-10.5); Carbon Dioxide 21 mmol/L (22-29); Chloride 104 mmol/L (98-107); Globulin 2.6 g/dL (1.3-4.6); Glomerular Filtration Rate 57.6 mL/min (90-130); Glucose 96 mg/dL (65-115); Lipase 21 U/L (13-60); Osmolality Calculated 285 mOsm/kg (285-295); Potassium 3.7 mmol/L (3.5-5.1); Sodium 138 mmol/L (136-145); Total Bilirubin 0.3 mg/dL (0.15-1.2); Total Protein 6.2 g/dL (6.6-8.7)
[2023-06-20 21:00] VITALS: BP 109/68; PULSE 71; RESP 16; O2SAT 90
== END 2023-06-20 21:10 | disposition home or self-care (01) ==
PROVIDERS: Emergency Provider Emergency Medicine; PCP Registered Nurse
DX: R10.9 Unspecified abdominal pain (principal); F17.210 Nicotine dependence, cigarettes, uncomplicated; J44.9 Chronic obstructive pulmonary disease, unspecified; Z87.442 Personal history of urinary calculi
CPT/HCPCS: 36415; 80053; 83690; 85025; 96372; 99284; J2270; J2405

== ENCOUNTER 2023-06-25 19:25 | Emergency (ER) | payer MEDICARE, MEDICAID, SELFPAY ==
[2023-06-25 19:27] VITALS: BP 118/89; PULSE 85; RESP 17; TEMP 37; O2SAT 98; BMI 26.2
--- NOTE | 2023-06-25 19:33 | ED_ITS ---
HPI - Abdominal Pain 2 General: Chief Complaint: Abdominal Pain Stated Complaint: ABD PAIN Time Seen by Provider: 06/25/23 19:29 Source: patient and EMS Mode of arrival: EMS Limitations: no limitations History of Present Illness: 57-year-old female who is very well-know n to the ER has a long history of chronic abdominal pain she states she started having pain again today its diffuse in nature. She is also had some vomiting denies any diarrhea denies any fevers. Associated Symptoms: Denies chills, diarrhea, dysuria, fever(s), nausea and vomiting Review of Systems 2 Const: Denies: fever(s), chills, body aches or change in appetite ENMT: Denies: throat pain or dental pain Card: Denies: chest pain Resp: Denies: dyspnea GI: Reports: abdominal pain; Denies: nausea, vomiting or diarrhea : Denies: dysuria Musc: Denies: neck pain or back pain Skin/Breast: Denies: rash Neuro: Denies: headache(s) PFSH ED 2 PFSH: Medical History Insomnia Tobacco use disorder Opioid dependence, uncomplicated Cannabis dependence, uncomplicated Psychiatric care Tardive dyskinesia Esophageal stricture Cystitis cystica Chronic gastritis without bleeding Restrictive lung disease Chronic back pain greater than 3 months duration Borderline personality disorder Schizoaffective disorder, bipolar type Urgency incontinence Neurogenic bladder Dysphagia COPD (chronic obstructive pulmonary disease) GERD without esophagitis Foreign body in bladder Bladder stone Chronic anxiety Surgical History H/O bladder repair surgery MESH REPAIR H/O esophagogastroduodenoscopy (09/21/20) H/O colonoscopy with polypectomy History of foot surgery sx in 2009. Screws placed by Dr. Don. S/P bronchoscopy with biopsy History of ureter stent History of breast biopsy Hx of cholecystectomy H/O: hysterectomy History of appendectomy Family History Mother No problems noted. Father No problems noted. Other Asthma Cancer Diabetes Heart disease Social History Smoking and tobacco/nicotine status: current every day tobacco/nicotine user cigarettes Packs smoked per day: 1 Years cigarettes smoked: 20 [ Other cigarette details: Hx of 1 PPD x 20 Years, started at age 27] Quit status (tobacco/nicotine): considering quitting Second hand smoke exposure: Yes Alcohol intake: never Substance/Drug Use: former Lives independently: Yes Household members: spouse Marital status: Number of children: 3 Current occupational status: disabled Do you think of yourself as: Straight/Heterosexual Current gender identity: Female Physical Exam 2 Const: COMMON NORMALS: no acute distress, patient oriented x3 and healthy appearing HENMT: COMMON NORMALS: normocephalic and atraumatic HEAD & SCALP: n ormocephalic and atraumatic Eye: COMMON NORMALS: Equal, round and reactive pupils present and EOMs intact bilaterally PUPIL: Yes Equal, round and reactive pupils present Neck/C-Spine: COMMON NORMALS: full ROM and supple Chest: COMMONS NORMALS: normal inspection of the chest and normal palpation of entire chest wall Resp: COMMON NORMALS: normal respiratory effort, No retractions, No use of accessory muscles and clear to auscultation bilaterally AUSCULTATION: clear to auscultation bilaterally Cardio: COMMON NORMALS: regular rate, regular rhythm and No murmurs present (Cardio) RATE: regular rate RHYTHM: regular rhythm GI: COMMON NORMALS: Normal to inspection, nondistended, normoactive bowel sounds present, Soft to palpation, non-tender and no masses PALPATION: Yes Soft to palpation Extremity: COMMON NORMALS: normal to inspection and full ROM Neuro: COMMON NORMALS: patient oriented x3, moves all extremities and no focal motor deficits Psych: COMMON NORMALS: mental status grossly normal, Normal thought process present and cooperative THOUGHT PROCESS: Normal thought process present Skin: COMMON NORMALS: no rashes or lesions noted and no wounds GENERAL SKIN EXAM: no rashes or lesions noted Course 2 Vital Signs: Vital signs: Vital Signs Temperature 98.6 F 06/25/23 19:27 Pulse Rate 85 06/25/23 19:27 Respiratory Rate 18 06/25/23 19:59 Blood Pressure 118/89 06/25/23 19:27 Pulse Oximetry 98 06/25/23 19:59 Oxygen Delivery Me thod Room Air 06/25/23 19:27 MDM - Abdominal Pain Medical Decision Making Patient presents here with abdominal pain is chronic in nature she is well- appearing her blood work here is all normal she has no signs of acute surgical abdomen she is stable for discharge she is follow-up with PCP and return if worsening she understands agrees to plan. Medical Records I reviewed the patient's medical records. Lab Data I reviewed the patient's lab results. 06/25/23 19:44 06/25/23 19:44 Labs/Radiology: Laboratory Results WBC 7.46 10^3/uL (3.29-11.43) 06/25/23 19:44 RBC 4.41 10^6/uL (3.85-5.65) 06/25/23 19:44 Hgb 14.20 g/dL (11.27-16.99) 06/25/23 19:44 Hct 41.3 % (36-47) 06/25/23 19:44 MCV 93.7 fl (85-98) 06/25/23 19:44 MCH 32.2 pg (27-33) 06/25/23 19:44 MCHC 34.4 g/dL (30-55) 06/25/23 19:44 RDW 13.4 % (12.1-15.1) 06/25/23 19:44 Plt Count 191 10^3/cmm (157-399) 06/25/23 19:44 MPV 10.7 fL (7.4-10.4) H 06/25/23 19:44 Neut % (Auto) 58.0 % 06/25/23 19:44 Lymph % (Auto) 29.8 % 06/25/23 19:44 [place] % (Auto) 9.1 % 06/25/23 19:44 Eos % (Auto) 1.6 % 06/25/23 19:44 Baso % (Auto) 1.2 % 06/25/23 19:44 Neut # (Auto) 4.33 10^3/uL (1.8-7.7) 06/25/23 19:44 Lymph # (Auto) 2.2 10^3/uL (0.8-4.8) 06/25/23 19:44 [place] # (Auto) 0.7 10^3/uL (0.2-0.9) 06/25/23 19:44 Eos # (Auto) 0.1 10^3/uL (0.0-0.8) 06/25/23 19:44 Baso # (Auto) 0.1 10^3/uL (0.0-0.1) 06/25/23 19:44 Nucleated RBC % (auto) 0 % 06/25/23 19:44 Nucleated RBCs # 0.0 /100WBC 06/25/23 19:44 Sodium 141 mmol/L (136-145) 06/25/23 19:44 Potassium 3.4 mmol/L (3.5-5.1) L 06/25/23 19:44 Chloride 105 mmol/L (98-107) 06/25/23 19:44 Carbon Dioxide 21 mmol/L (22-29) L 06/25/23 19:44 Anion Gap 18.4 (5-19) 06/25/23 19:44 BUN 8 mg/dL (6-20) 06/25/23 19:44 Creatinine 0.9 mg/dL (0.5-0.9) 06/25/23 19:44 GFR Calculation 65.0 mL/min (90-130) L 06/25/23 19:44 Glucose 98 mg/dL (65-115) 06/25/23 19:44 Calculated Osmolality 290 mOsm/kg (285-295) 06/25/23 19:44 Calcium 9.1 mg/dL (8.5-10.5) 06/25/23 19:44 Total Bilirubin 0.3 mg/dL (0.15-1.2) 06/25/23 19:44 AST 8 U/L (0-32) 06/25/23 19:44 ALT < 5 U/L (0-33) 06/25/23 19:44 Alkaline Phosphatase 106 U/L (35-105) H 06/25/23 19:44 Total Protein 6.3 g/dL (6.6-8.7) L 06/25/23 19:44 Albumin 3.7 g/dL (3.5-5.2) 06/25/23 19:44 Globulin 2.6 g/dL (1.3-4.6) 06/25/23 19:44 Lipase 20 U/L (13-60) 06/25/23 19:44 No radiology studies performed this visit Discharge Plan Discharge Patient Disposition: Home Clinical Impression: Abdominal pain Qualifiers: Abdominal location: generalized Qualified Code(s): R10.84 - Generalized abdominal pain Prescriptions: No Action nystatin 100,000 unit/gram powder 1 applic topical BID Qty: 30 0RF Rx Instructions: apply locally to B/L groin folds albuterol sulfate 90 mcg/actuation HFA aerosol inhaler See Rx Instructions .ROUTE .COMPLEX Qty: 8.5 0RF Dose Instruction: INHALE 2 PUFFS BY MOUTH EVERY 6 HOURS NEEDED FOR SHORTNESS OF BREATH OR WHEEZING Rx Instructions: INHALE 2 PUFFS BY MOUTH EVERY 6 HOURS NEEDED FOR SHORTNESS OF BREATH OR WHEEZING montelukast [Singulair] 10 mg tablet 10 mg PO DAILY 90 Days Qty: 90 0RF Ingrezza 80 mg capsule 80 mg PO .hs Qty: 30 2RF Rx Instructions: Take one capsule by mouth every morning pantoprazole 40 mg tablet,delayed release (DR/EC) See Rx Instructions .ROUTE .COMPLEX Qty: 90 0RF Dose Instruction: TAKE 1 TABLET BY MOUTH DAILY AT 6 AM Rx Instructions: TAKE 1 TABLET BY MOUTH DAILY AT 6 AM lamotrigine 200 mg tablet 200 mg PO DAILY@06 Qty: 30 0RF Rx Instructions: Take one tablet by mouth every morning Rexulti 1 mg tablet 1 mg PO DAILY Qty: 30 0RF Rx Instructions: Take one tablet daily at 8 PM trazodone 100 mg tablet 200 mg PO DAILY PRN (Reason: insomnia) Qty: 60 0RF Rx Instructions: Take two tablets at bedtime, if needed for insomnia Trintellix 20 mg tablet 20 mg PO DAILY Qty: 30 0RF Rx Instructions: Take one tablet once daily acetaminophen 500 mg Tablet 1,000 mg PO Q6H PRN (Reason: Pain) Compazine 25 mg suppository 25 mg MT BID PRN (Reason: nausea and vomiting) Qty: 20 0RF ondansetron 4 mg tablet,disintegrating 4 mg PO Q6H PRN (Reason: nausea and vomiting) Qty: 14 0RF ondansetron 4 mg tablet,disintegrating 4 mg PO Q6H PRN (Reason: nausea and vomiting) Qty: 14 0RF dicyclomine 10 mg capsule 10 mg PO TID Qty: 60 0RF Discharge Orders: Discharge ED (Routine); Ordered 06/25/23 Ordered By: Damien Urbina Referrals: Dara Tavera, ASSOCIATE PROFESSOR OF [employer]RARY [employer]IA [Primary Care Provider] - 1-3 days Discharge Diet: Advance as tolerated Discharge Activity: Resume usual activity Patient Instructions: Abdominal Pain (ED) Coding Level of Care Code ED Tattoo Identifier for Shellie Guallpa
[2023-06-25 19:47] LABS: Basophils # 0.1 10^3/uL (0.0-0.1); Basophils % 1.2 %; Eosinophils # 0.1 10^3/uL (0.0-0.8); Eosinophils % 1.6 %; Hematocrit 41.3 % (36-47); Lymphocytes # 2.2 10^3/uL (0.8-4.8); Lymphocytes % 29.8 %; Mean Corpuscular HGB Conc 34.4 g/dL (30-55); Mean Corpuscular Hemoglobin 32.2 pg (27-33); Mean Corpuscular Volume 93.7 fl (85-98); Mean Platelet Volume 10.7 fL (7.4-10.4); Monocytes # 0.7 10^3/uL (0.2-0.9); Monocytes % 9.1 %; Neutrophils # 4.33 10^3/uL (1.8-7.7); Nucleated Red Blood Cells % 0 %; Platelet Count 191 10^3/cmm (157-399); Red Blood Count 4.41 10^6/uL (3.85-5.65); Red Cell Distribution Width 13.4 % (12.1-15.1); White Blood Count 7.46 10^3/uL (3.29-11.43)
[2023-06-25] MEDS: ondansetron 2 mg/ML SDV 2 mL 4 MG IVP (19:58)
[2023-06-25 19:59] VITALS: RESP 18; O2SAT 98
[2023-06-25] MEDS: morphine 4 mg/mL SDV 1 mL IVP (19:59)
[2023-06-25 20:06] LABS: Alanine Aminotransferase < 5 U/L (0-33); Albumin Level 3.7 g/dL (3.5-5.2); Alkaline Phosphatase 106 U/L (35-105); Anion Gap 18.4 (5-19); Aspartate Amino Transferase 8 U/L (0-32); Blood Urea Nitrogen 8 mg/dL (6-20); Calcium 9.1 mg/dL (8.5-10.5); Carbon Dioxide 21 mmol/L (22-29); Chloride 105 mmol/L (98-107); Globulin 2.6 g/dL (1.3-4.6); Glucose 98 mg/dL (65-115); Lipase 20 U/L (13-60); Osmolality Calculated 290 mOsm/kg (285-295); Potassium 3.4 mmol/L (3.5-5.1); Sodium 141 mmol/L (136-145); Total Bilirubin 0.3 mg/dL (0.15-1.2); Total Protein 6.3 g/dL (6.6-8.7)
[2023-06-25] MEDS: HYDROcodone-acetaminophen 5-325 mg Tablet 1 TAB PO (20:32)
[2023-06-25 20:54] VITALS: BP 129/85; PULSE 78; O2SAT 98
== END 2023-06-25 20:55 | disposition home or self-care (01) ==
PROVIDERS: Emergency Provider Emergency Medicine; PCP Registered Nurse
DX: G89.29 Other chronic pain (principal); R10.84 Generalized abdominal pain; F17.210 Nicotine dependence, cigarettes, uncomplicated; J44.9 Chronic obstructive pulmonary disease, unspecified
CPT/HCPCS: 80053; 83690; 85025; 96374; 96375; 99284; J2270; J2405

== ENCOUNTER 2023-07-11 19:16 | Emergency (ER) | payer MEDICARE, MEDICAID, SELFPAY ==
[2023-07-11 19:18] VITALS: BP 95/51; PULSE 90; RESP 15; TEMP 36.9; O2SAT 94
--- NOTE | 2023-07-11 19:22 | XRR_ITS ---
PROCEDURE INFORMATION: Exam: XR Chest Exam date and time: 07/11/2023 8:15 PM Age: 57 years old Clinical indication: Pain; Chest pressure; Additional info: Cp TECHNIQUE: Imaging protocol: Radiologic exam of the chest. Views: 1 view. COMPARISON: CR XR chest 1V portable [id number] 06/07/2023 2:58 AM FINDINGS: Lungs: Left base atelectasis/scarring. No convincing consolidation Pleural spaces: No pleural effusion. No pneumothorax. Heart/Mediastinum: Stable cardiomediastinal silhouette. Bones/joints: No acute osseous abnormality. XR/XR chest 1V portable [id number] IMPRESSION: No acute findings.
--- NOTE | 2023-07-11 19:22 | ECG_ITS ---
[facility] Test Date: 2023-07-11 Pat Name: Latesha Wilhelm Department: Room: Gender: Female Installations Inspector: : 1965 Requested By: Damien Urbina Order Number: [id number] Alice MD: Kenan Sidhu M.D. Measurements Intervals [place] Rate: 94 P: 62 HI: 132 QRS: 47 QRSD: 91 T: 61 QT: 385 QTc: 483 Interpretive Statements SINUS RHYTHM POSSIBLE RIGHT ATRIAL ENLARGEMENT [0.25mV P-WAVE] LEFT ATRIAL ENLARGEMENT [-0.15mV P-WAVE IN V1/V2] INCOMPLETE RIGHT BUNDLE BRANCH BLOCK [90+ ms QRS DURATION, TERMINAL R IN V1/V2, 40+ ms S IN I/aVL/V4/V5/V6] Compared to ECG 06/07/2023 04:43:49 Atrial abnormality now present Incomplete right bundle-branch block now present Electronically Signed On 07-11-2023 19:57:19 PHYSICAL SCIENCES INSTRUCTOR by Kenan Sidhu M.D. [id number]
--- NOTE | 2023-07-11 20:24 | PC.NURSE ---
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
[2023-07-11 20:32] VITALS: BP 97/62; PULSE 68; RESP 15; O2SAT 90
--- NOTE | 2023-07-11 20:37 | ED_ITS ---
HPI - Chest Pain 2 General: Chief Complaint: Chest Pain Stated Complaint: cp,patel,nausea Time Seen by Provider: 07/11/23 20:32 History of Present Illness: Patient presents to the ER complaining of headache, cough, chest pain, dry mouth and nose, symptoms started about 2 hours ago. Chest pain radiates into the back. Patient is also complaining of nausea. Patient has been seen in the ER multiple times for different variations of chest pain and abdominal pain. Review of Systems 2 General: Reports: 10 or more systems reviewed and unremarkable except in HPI and below PFSH ED 2 PFSH: Medical History Insomnia Tobacco use disorder Opioid dependence, uncomplicated Cannabis dependence, uncomplicated Psychiatric care Tardive dyskinesia Esophageal stricture Cystitis cystica Chronic gastritis without bleeding Restrictive lung disease Chronic back pain greater than 3 months duration Borderline personality disorder Schizoaffective disorder, bipolar type Urgency incontinence Neurogenic bladder Dysphagia COPD (chronic obstructive pulmonary disease) GERD without esophagitis Foreign body in bladder Bladder stone Chronic anxiety Surgical History H/O bladder repair surgery MESH REPAIR H/O esophagogastroduodenoscopy (09/21/20) H/O colonoscopy with polypectomy History of foot surgery sx in 2009. Screws placed by Dr. Don. S/P bronchoscopy with biopsy History of ureter stent History of breast biopsy Hx of cholecystectomy H/O: hysterectomy History of appendectomy Family History Mother No problems noted. Father No problems noted. Other Asthma Cancer Diabetes Heart disease Social History Smoking and tobacco/nicotine status: current every day tobacco/nicotine user cigarettes Packs smoked per day: 1 Years cigarettes smoked: 20 [ Other cigarette details: Hx of 1 PPD x 20 Years, started at age 27] Quit status (tobacco/nicotine): considering quitting Second hand smoke exposure: Yes Alcohol intake: never Substance/Drug Use: former Lives independently: Yes Household members: spouse Marital status: Number of children: 3 Current occupational status: disabled Do you think of yourself as: Straight/Heterosexual Current gender identity: Female Physical Exam 2 Const: COMMON NORMALS: no acute distress, average body habitus, patient oriented x3, no limitations, healthy appearing, alert and well nourished Neck/C-Spine: COMMON NORMALS: no JVD Chest: COMMONS NORMALS: normal inspection of the chest and normal palpation of entire chest wall Resp: COMMON NORMALS: normal respiratory effort, No retractions, No use of accessory muscles and clear to auscultation bilaterally AUSCULTATION: clear to auscultation bilaterally Cardio: COMMON NORMALS: no JVD, regular rate, regular rhythm, S1 normal heart sound present, S2 normal heart sound present, No gallops present (Cardio), No clicks present (Cardio), No murmurs present (Cardio) and No rub (Cardio) R ATE: regular rate RHYTHM: regular rhythm HEART SOUNDS: S1 normal heart sound present and S2 normal heart sound present GI: COMMON NORMALS: Normal to inspection, nondistended, normoactive bowel sounds present, Soft to palpation, non-tender, No hepatosplenomegaly present and no masses PALPATION: Yes Soft to palpation and Yes No hepatosplenomegaly present Neuro: COMMON NORMALS: patient oriented x3 SENSORIUM/ORIENTATION: Yes alert Course 2 Vital Signs: Vital signs: Vital Signs Temperature 98.5 F 07/11/23 19:18 Pulse Rate 65 07/11/23 22:13 Respiratory Rate 14 07/11/23 22:13 Blood Pressure 114/76 07/11/23 22:13 Pulse Oximetry 93 07/11/23 22:13 Oxygen Delivery Me thod Room Air 07/11/23 19:18 MDM - Chest Pain Medical Decision Making Patient had lab work obtained that was essentially benign. Baseline troponin was 10. Chest x-ray showed no acute findings. EKG showed no acute changes. Patient was given 4 mg of Zofran for nausea which helped relieve the nausea. Patient was pain-free during her stay. Patient be discharged home with a diagnosis of atypical chest pain and nausea. Patient is to follow-up with her PCP within next 7 days for further evaluation and treatment. Differential Diagnosis Unlikely acute massive pulmonary embolism, acute respiratory failure, acute myocardial infarction, cardiac arrest or sudden cardiac Medical Records I reviewed the patient's medical records. Lab Data I reviewed the patient's lab results. 07/11/23 20:37 07/11/23 20:37 Radiology Impressions Chest X-Ray 07/11/23 19:22 IMPRESSION: No acute findings. Laboratory Results WBC 4.95 10^3/uL (3.29-11.43) 07/11/23 20:37 RBC 4.44 10^6/uL (3.85-5.65) 07/11/23 20:37 Hgb 14.30 g/dL (11.27-16.99) 07/11/23 20:37 Hct 41.8 % (36-47) 07/11/23 20:37 MCV 94.1 fl (85-98) 07/11/23 20:37 MCH 32.2 pg (27-33) 07/11/23 20:37 MCHC 34.2 g/dL (30-55) 07/11/23 20:37 RDW 13.9 % (12.1-15.1) 07/11/23 20:37 Plt Count 155 10^3/cmm (157-399) L 07/11/23 20:37 MPV 10.4 fL (7.4-10.4) 07/11/23 20:37 Neut % (Auto) 66.9 % 07/11/23 20:37 Lymph % (Auto) 24.2 % 07/11/23 20:37 [place] % (Auto) 8.1 % 07/11/23 20:37 Eos % (Auto) 0.2 % 07/11/23 20:37 Baso % (Auto) 0.4 % 07/11/23 20:37 Neut # (Auto) 3.31 10^3/uL (1.8-7.7) 07/11/23 20:37 Lymph # (Auto) 1.2 10^3/uL (0.8-4.8) 07/11/23 20:37 [place] # (Auto) 0.4 10^3/uL (0.2-0.9) 07/11/23 20:37 Eos # (Auto) 0.0 10^3/uL (0.0-0.8) 07/11/23 20:37 Baso # (Auto) 0.0 10^3/uL (0.0-0.1) 07/11/23 20:37 Nucleated RBC % (auto) 0 % 07/11/23 20:37 Nucleated RBCs # 0.0 /100WBC 07/11/23 20:37 Sodium 138 mmol/L (136-145) 07/11/23 20:37 Potassium 3.5 mmol/L (3.5-5.1) 07/11/23 20:37 Chloride 102 mmol/L (98-107) 07/11/23 20:37 Carbon Dioxide 21 mmol/L (22-29) L 07/11/23 20:37 Anion Gap 18.5 (5-19) 07/11/23 20:37 BUN 8 mg/dL (6-20) 07/11/23 20:37 Creatinine 1.0 mg/dL (0.5-0.9) H 07/11/23 20:37 GFR Calculation 57.6 mL/min (90-130) L 07/11/23 20:37 Glucose 108 mg/dL (65-115) 07/11/23 20:37 Calculated Osmolality 285 mOsm/kg (285-295) 07/11/23 20:37 Calcium 8.9 mg/dL (8.5-10.5) 07/11/23 20:37 Total Bilirubin 0.2 mg/dL (0.15-1.2) 07/11/23 20:37 AST 19 U/L (0-32) 07/11/23 20:37 ALT 8 U/L (0-33) 07/11/23 20:37 Alkaline Phosphatase 96 U/L (35-105) 07/11/23 20:37 Troponin T Baseline 10 ng/L (0-10) 07/11/23 20:37 Total Protein 6.0 g/dL (6.6-8.7) L 07/11/23 20:37 Albumin 3.8 g/dL (3.5-5.2) 07/11/23 20:37 Globulin 2.2 g/dL (1.3-4.6) 07/11/23 20:37 Lipase 20 U/L (13-60) 07/11/23 20:37 All radiology interpretation(s) finalized by discharge EKG Data EKG 1: I personally reviewed and interpreted this EKG as follows: EKG interpretation date: 07/11/23 EKG interpretation time: 19:22 Prior EKG tracings: available for review Interpretation: EKG showed ventricular rate 94 beats a minute, GA interval 132, QRS duration 91, QTc of 483, sinus rhythm, possible right atrial argument, left atrial lodgment, incomplete right bundle-branch block Discharge Plan Discharge Patient Disposition: Home Clinical Impression: Atypical chest pain, Nausea Condition: Stable Prescriptions: No Action nystatin 100,000 unit/gram powder 1 applic topical BID Qty: 30 0RF Rx Instructions: apply locally to B/L groin folds albuterol sulfate 90 mcg/actuation HFA aerosol inhaler See Rx Instructions .ROUTE .COMPLEX Qty: 8.5 0RF Dose Instruction: INHALE 2 PUFFS BY MOUTH EVERY 6 HOURS NEEDED FOR SHORTNESS OF BREATH OR WHEEZING Rx Instructions: INHALE 2 PUFFS BY MOUTH EVERY 6 HOURS NEEDED FOR SHORTNESS OF BREATH OR WHEEZING montelukast [Singulair] 10 mg tablet 10 mg PO DAILY 90 Days Qty: 90 0RF Ingrezza 80 mg capsule 80 mg PO .hs Qty: 30 2RF Rx Instructions: Take one capsule by mouth every morning pantoprazole 40 mg tablet,delayed release (DR/EC) See Rx Instructions .ROUTE .COMPLEX Qty: 90 0RF Dose Instruction: TAKE 1 TABLET BY MOUTH DAILY AT 6 AM Rx Instructions: TAKE 1 TABLET BY MOUTH DAILY AT 6 AM lamotrigine 200 mg tablet 200 mg PO DAILY@06 Qty: 30 0RF Rx Instructions: Take one tablet by mouth every morning Rexulti 1 mg tablet 1 mg PO DAILY Qty: 30 0RF Rx Instructions: Take one tablet daily at 8 PM trazodone 100 mg tablet 200 mg PO DAILY PRN (Reason: insomnia) Qty: 60 0RF Rx Instructions: Take two tablets at bedtime, if needed for insomnia Trintellix 20 mg tablet 20 mg PO DAILY Qty: 30 0RF Rx Instructions: Take one tablet once daily acetaminophen 500 mg Tablet 1,000 mg PO Q6H PRN (Reason: Pain) Compazine 25 mg suppository 25 mg [place] BID PRN (Reason: nausea and vomiting) Qty: 20 0RF ondansetron 4 mg tablet,disintegrating 4 mg PO Q6H PRN (Reason: nausea and vomiting) Qty: 14 0RF ondansetron 4 mg tablet,disintegrating 4 mg PO Q6H PRN (Reason: nausea and vomiting) Qty: 14 0RF dicyclomine 10 mg capsule 10 mg PO TID Qty: 60 0RF Discharge Orders: Discharge ED (Routine); Ordered 07/11/23 Ordered By: Colby Fisher Referrals: Dara Tavera FNP [Primary Care Provider] - 1 week Patient Instructions: Chest Pain - Noncardiac, Acute Nausea and Vomiting (DC) Activity Restrictions/Additional Instructions: Your lab work did not show any acute cause of your chest pain or nausea. Please follow-up with your family practice physician within next 7 days for further evaluation and treatment. If your symptoms worsen please return to the ER. Coding Level of Care Code ED Air Lift Operator for Shellie Guallpa
[2023-07-11 20:50] LABS: Basophils % 0.4 %; Eosinophils % 0.2 %; Hematocrit 41.8 % (36-47); Lymphocytes # 1.2 10^3/uL (0.8-4.8); Lymphocytes % 24.2 %; Mean Corpuscular HGB Conc 34.2 g/dL (30-55); Mean Corpuscular Hemoglobin 32.2 pg (27-33); Mean Corpuscular Volume 94.1 fl (85-98); Mean Platelet Volume 10.4 fL (7.4-10.4); Monocytes # 0.4 10^3/uL (0.2-0.9); Monocytes % 8.1 %; Neutrophils # 3.31 10^3/uL (1.8-7.7); Neutrophils % 66.9 %; Nucleated Red Blood Cells % 0 %; Platelet Count 155 10^3/cmm (157-399); Red Blood Count 4.44 10^6/uL (3.85-5.65); Red Cell Distribution Width 13.9 % (12.1-15.1); White Blood Count 4.95 10^3/uL (3.29-11.43)
[2023-07-11] MEDS: ondansetron 4 MG Tablet PO (20:51)
[2023-07-11 21:12] LABS: Troponin(5th) Baseline 10 ng/L (0-10)
[2023-07-11 21:14] VITALS: PULSE 67; RESP 26; O2SAT 90
[2023-07-11 21:20] LABS: Alanine Aminotransferase 8 U/L (0-33); Albumin Level 3.8 g/dL (3.5-5.2); Alkaline Phosphatase 96 U/L (35-105); Aspartate Amino Transferase 19 U/L (0-32); Blood Urea Nitrogen 8 mg/dL (6-20); Calcium 8.9 mg/dL (8.5-10.5); Carbon Dioxide 21 mmol/L (22-29); Chloride 102 mmol/L (98-107); Globulin 2.2 g/dL (1.3-4.6); Glomerular Filtration Rate 57.6 mL/min (90-130); Glucose 108 mg/dL (65-115); Lipase 20 U/L (13-60); Osmolality Calculated 285 mOsm/kg (285-295); Sodium 138 mmol/L (136-145); Total Bilirubin 0.2 mg/dL (0.15-1.2)
[2023-07-11 21:22] LABS: Anion Gap 18.5 (5-19); Potassium 3.5 mmol/L (3.5-5.1)
[2023-07-11 22:13] VITALS: BP 114/76; PULSE 65; RESP 14; O2SAT 93
[2023-07-11 22:41] VITALS: BP 94/56; PULSE 67; RESP 18; O2SAT 93
[2023-07-11 22:43] LABS: Troponin 5 2HR 9.12 ng/L (0-10)
[2023-07-11 22:45] LABS: Troponin 5 2HR Delta -0.88 ABS# (0-10)
== END 2023-07-11 22:43 | disposition home or self-care (01) ==
PROVIDERS: Emergency Medicine; Emergency Provider Emergency Medicine; PCP Registered Nurse
DX: R07.89 Other chest pain (principal); R11.0 Nausea; F17.210 Nicotine dependence, cigarettes, uncomplicated; J44.9 Chronic obstructive pulmonary disease, unspecified
CPT/HCPCS: 36415; 71045; 80053; 83690; 84484; 85025; 93005; 99285; Q0162

== ENCOUNTER 2023-07-23 23:55 | Emergency (ER) | payer MEDICARE, MEDICAID, SELFPAY ==
[2023-07-23 23:57] VITALS: BP 89/75; PULSE 76; RESP 16; TEMP 36.6; O2SAT 95
--- NOTE | 2023-07-24 00:04 | W.ED.ABDPA2 ---
Documented by User: AMANDEEP Nunez 07/26/23 13:23 HPI - Abdominal Pain General: Chief Complaint: Nausea/Vomiting/Diarrhea Stated Complaint: ABD PAIN Time Seen by Provider: 07/23/23 23:56 History of Present Illness: 57-year-old female comes in today with nausea and episodes of vomiting throughout the day. Patient significant history for similar episodes. Patient reports that her food taster in [place] believes she may have atherosclerotic disease of the bowel arteries. He is discussing possible stent in order to improve blood flow to the bowel. Patient today has used a total of 12 mg of Zofran with minimal relief. Patient reports central abdominal pain. MD elicited complaint: abdominal pain Pertinent past history: gastritis Onset (ago): hour(s) Pain Consistency: intermittent Location: Epigastric Severity: similar to previous episodes Quality: stabbing Migration to: no migration Exacerbating factors: nothing Relieving factors: nothing Context: history of similar episodes Review of Systems General: Reports: 10 or more systems reviewed and unremarkable except in HPI and below PFSH ED PFSH: Medical History Insomnia Tobacco use disorder Opioid dependence, uncomplicated Cannabis dependence, uncomplicated Psychiatric care Tardive dyskinesia Esophageal stricture Cystitis cystica Chronic gastritis without bleeding Restrictive lung disease Chronic back pain greater than 3 months duration Borderline personality disorder Schizoaffective disorder, bipolar type Urgency incontinence Neurogenic bladder Dysphagia COPD (chronic obstructive pulmonary disease) GERD without esophagitis Foreign body in bladder Bladder stone Chronic anxiety Surgical History H/O bladder repair surgery MESH REPAIR H/O esophagogastroduodenoscopy (09/21/20) H/O colonoscopy with polypectomy History of foot surgery sx in 2009. Screws placed by Dr. Don. S/P bronchoscopy with biopsy History of ureter stent History of breast biopsy Hx of cholecystectomy H/O: hysterectomy History of appendectomy Family History Mother No problems noted. Father No problems noted. Other Asthma Cancer Diabetes Heart disease Social History Smoking and tobacco/nicotine status: current every day tobacco/nicotine user cigarettes Packs smoked per day: 1 Years cigarettes smoked: 20 [ Other cigarette details: Hx of 1 PPD x 20 Years, started at age 27] Quit status (tobacco/nicotine): considering quitting Second hand smoke exposure: Yes Alcohol intake: never Substance/Drug Use: former Lives independently: Yes Household members: spouse Marital status: Number of children: 3 Current occupational status: disabled Do you think of yourself as: Straight/Heterosexual Current gender identity: Female Physical Exam Const: COMMON NORMALS: alert HENMT: COMMON NORMALS: normocephalic HEAD & SCALP: normocephalic MOUTH: Abnormal oral and palatal mucosa present (Dry oral mucosa) Neck/C-Spine: COMMON NORMALS: full ROM Resp: COMMON NORMALS: normal respiratory effort and clear to auscultation bilaterally AUSCULTATION: clear to auscultation bilaterally Cardio: COMMON NORMALS: regular rate and regular rhythm RATE: regular rate RHYTHM: regular rhythm GI: COMMON NORMALS: Soft to palpation PALPATION: Yes Soft to palpation and Yes Tenderness to palpation present (GI) (Diffuse tenderness) Back/Pelvis: COMMON NORMALS: thoracic and lumbar spine normal to inspection Extremity: COMMON NORMALS: normal to inspection Neuro: SENSORIUM/ORIENTATION: Yes alert Skin: NARRATIVE SKIN EXAM: Decreased skin turgor Course Vital Signs: Vital signs: Vital Signs Temperature 97.9 F 07/23/23 23:57 Pulse Rate 70 07/24/23 00:53 Respiratory Rate 15 07/24/23 00:53 Blood Pressure 138/64 07/24/23 00:53 Pulse Oximetry 99 07/24/23 00:53 Oxygen Delivery Me thod Room Air 07/24/23 00:12 MDM - Abdominal Pain Medical Decision Making 57-year-old female comes in today for complaints of abdominal pain with nausea and vomiting similar to prior episodes. Patient appears mildly dehydrated. Lungs are clear to auscultation. Abdomen soft with some mid epigastric tenderness. Bowel sounds are present. Vital signs normal except for a blood pressure of 89/75. Differential diagnosis includes not limited to gastritis, dehydration, anxiety about health, colitis, bowel obstruction. Patient reported the episode was similar to prior abdominal pain with nausea episodes. Patient been seen multiple times in the ER for similar events. Patient was given 1 mg of hydromorphone and 12-1/2 mg of promethazine for her pain and nausea and vomiting. Patient was monitored and able to consume food and drink and then discharged to home. Discharge Plan Discharge Patient Disposition: Home Clinical Impression: Abdominal pain, chronic, generalized, Chronic nausea Prescriptions: No Action nystatin 100,000 unit/gram powder 1 applic topical BID Qty: 30 0RF Rx Instructions: apply locally to B/L groin folds albuterol sulfate 90 mcg/actuation HFA aerosol inhaler See Rx Instructions .ROUTE .COMPLEX Qty: 8.5 0RF Dose Instruction: INHALE 2 PUFFS BY MOUTH EVERY 6 HOURS NEEDED FOR SHORTNESS OF BREATH OR WHEEZING Rx Instructions: INHALE 2 PUFFS BY MOUTH EVERY 6 HOURS NEEDED FOR SHORTNESS OF BREATH OR WHEEZING montelukast [Singulair] 10 mg tablet 10 mg PO DAILY 90 Days Qty: 90 0RF Ingrezza 80 mg capsule 80 mg PO .hs Qty: 30 2RF Rx Instructions: Take one capsule by mouth every morning pantoprazole 40 mg tablet,delayed release (DR/EC) See Rx Instructions .ROUTE .COMPLEX Qty: 90 0RF Dose Instruction: TAKE 1 TABLET BY MOUTH DAILY AT 6 AM Rx Instructions: TAKE 1 TABLET BY MOUTH DAILY AT 6 AM Trintellix 20 mg tablet 20 mg PO DAILY Qty: 30 0RF Rx Instructions: Take one tablet once daily trazodone 100 mg tablet 200 mg PO DAILY PRN (Reason: insomnia) Qty: 60 0RF Rx Instructions: Take two tablets at bedtime, if needed for insomnia lamotrigine 200 mg tablet 200 mg PO DAILY@06 Qty: 30 0RF Rx Instructions: Take one tablet by mouth every morning Rexulti 1 mg tablet 1 mg PO DAILY Qty: 30 0RF Rx Instructions: Take one tablet daily at 8 PM acetaminophen 500 mg Tablet 1,000 mg PO Q6H PRN (Reason: Pain) Compazine 25 mg suppository 25 mg MD BID PRN (Reason: nausea and vomiting) Qty: 20 0RF ondansetron 4 mg tablet,disintegrating 4 mg PO Q6H PRN (Reason: nausea and vomiting) Qty: 14 0RF ondansetron 4 mg tablet,disintegrating 4 mg PO Q6H PRN (Reason: nausea and vomiting) Qty: 14 0RF dicyclomine 10 mg capsule 10 mg PO TID Qty: 60 0RF Discharge Orders: Discharge ED (Routine); Ordered 07/24/23 Ordered By: Chivo Deleon Referrals: Dara Tavera FNP [Primary Care Provider] - Discharge Diet: Advance as tolerated Patient Instructions: Abdominal Pain (ED) Activity Restrictions/Additional Instructions: Follow-up with primary care. Continue routine medications as directed. Return to ER for worsening symptoms or new concerns. Coding Level of Care Code ED Bagging Salvager for Chg Fwd Documented by User: Chivo Deleon DO 07/24/23 03:14 HPI - Abdominal Pain General: Chief Complaint: Nausea/Vomiting/Diarrhea Stated Complaint: ABD PAIN Time Seen by Provider: 07/23/23 23:56 PFSH ED PFSH: Medical History Insomnia Tobacco use disorder Opioid dependence, uncomplicated Cannabis dependence, uncomplicated Psychiatric care Tardive dyskinesia Esophageal stricture Cystitis cystica Chronic gastritis without bleeding Restrictive lung disease Chronic back pain greater than 3 months duration Borderline personality disorder Schizoaffective disorder, bipolar type Urgency incontinence Neurogenic bladder Dysphagia COPD (chronic obstructive pulmonary disease) GERD without esophagitis Foreign body in bladder Bladder stone Chronic anxiety Surgical History H/O bladder repair surgery MESH REPAIR H/O esophagogastroduodenoscopy (09/21/20) H/O colonoscopy with polypectomy History of foot surgery sx in 2009. Screws placed by Dr. Don. S/P bronchoscopy with biopsy History of ureter stent History of breast biopsy Hx of cholecystectomy H/O: hysterectomy History of appendectomy Family History Mother No problems noted. Father No problems noted. Other Asthma Cancer Diabetes Heart disease Social History Smoking and tobacco/nicotine status: current every day tobacco/nicotine user cigarettes Packs smoked per day: 1 Years cigarettes smoked: 20 [ Other cigarette details: Hx of 1 PPD x 20 Years, started at age 27] Quit status (tobacco/nicotine): considering quitting Second hand smoke exposure: Yes Alcohol intake: never Substance/Drug Use: former Lives independently: Yes Household members: spouse Marital status: Number of children: 3 Current occupational status: disabled Do you think of yourself as: Straight/Heterosexual Current gender identity: Female Course Vital Signs: Vital signs: Vital Signs Temperature 97.9 F 07/23/23 23:57 Pulse Rate 70 07/24/23 00:53 Respiratory Rate 15 07/24/23 00:53 Blood Pressure 138/64 07/24/23 00:53 Pulse Oximetry 99 07/24/23 00:53 Oxygen Delivery Me thod Room Air 07/24/23 00:12 MDM - Abdominal Pain Medical Decision Making 57-year-old female comes in today for complaints of abdominal pain with nausea and vomiting similar to prior episodes. Patient appears mildly dehydrated. Lungs are clear to auscultation. Abdomen soft with some mid epigastric tenderness. Bowel sounds are present. Vital signs normal except for a blood pressure of 89/75. Differential diagnosis includes not limited to gastritis, dehydration, anxiety about health, colitis, bowel obstruction. Patient reported the episode was similar to prior abdominal pain with nausea episodes. Patient been seen multiple times in the ER for similar events. Patient was given 1 mg of hydromorphone and 12-1/2 mg of promethazine for her pain and nausea and vomiting. Patient was monitored and able to consume food and drink and then discharged to home. This patient was originally seen by AMANDEEP Chung.? I agree with his history, evaluation, and treatment. No radiology studies performed this visit Discharge Plan Discharge Patient Disposition: Home Clinical Impression: Abdominal pain, chronic, generalized, Chronic nausea Prescriptions: No Action nystatin 100,000 unit/gram powder 1 applic topical BID Qty: 30 0RF Rx Instructions: apply locally to B/L groin folds albuterol sulfate 90 mcg/actuation HFA aerosol inhaler See Rx Instructions .ROUTE .COMPLEX Qty: 8.5 0RF Dose Instruction: INHALE 2 PUFFS BY MOUTH EVERY 6 HOURS NEEDED FOR SHORTNESS OF BREATH OR WHEEZING Rx Instructions: INHALE 2 PUFFS BY MOUTH EVERY 6 HOURS NEEDED FOR SHORTNESS OF BREATH OR WHEEZING montelukast [Singulair] 10 mg tablet 10 mg PO DAILY 90 Days Qty: 90 0RF Ingrezza 80 mg capsule 80 mg PO .hs Qty: 30 2RF Rx Instructions: Take one capsule by mouth every morning pantoprazole 40 mg tablet,delayed release (DR/EC) See Rx Instructions .ROUTE .COMPLEX Qty: 90 0RF Dose Instruction: TAKE 1 TABLET BY MOUTH DAILY AT 6 AM Rx Instructions: TAKE 1 TABLET BY MOUTH DAILY AT 6 AM Trintellix 20 mg tablet 20 mg PO DAILY Qty: 30 0RF Rx Instructions: Take one tablet once daily trazodone 100 mg tablet 200 mg PO DAILY PRN (Reason: insomnia) Qty: 60 0RF Rx Instructions: Take two tablets at bedtime, if needed for insomnia lamotrigine 200 mg tablet 200 mg PO DAILY@06 Qty: 30 0RF Rx Instructions: Take one tablet by mouth every morning Rexulti 1 mg tablet 1 mg PO DAILY Qty: 30 0RF Rx Instructions: Take one tablet daily at 8 PM acetaminophen 500 mg Tablet 1,000 mg PO Q6H PRN (Reason: Pain) Compazine 25 mg suppository 25 mg MD BID PRN (Reason: nausea and vomiting) Qty: 20 0RF ondansetron 4 mg tablet,disintegrating 4 mg PO Q6H PRN (Reason: nausea and vomiting) Qty: 14 0RF ondansetron 4 mg tablet,disintegrating 4 mg PO Q6H PRN (Reason: nausea and vomiting) Qty: 14 0RF dicyclomine 10 mg capsule 10 mg PO TID Qty: 60 0RF Discharge Orders: Discharge ED (Routine); Ordered 07/24/23 Ordered By: Chivo Deleon Referrals: Dara Tavera, SAFETY ATTENDANT [Primary Care Provider] - Discharge Diet: Advance as tolerated Patient Instructions: Abdominal Pain (ED) Activity Restrictions/Additional Instructions: Follow-up with primary care. Continue routine medications as directed. Return to ER for worsening symptoms or new concerns. Coding Level of Care Code ED Bagging Salvager for Shellie Guallpa
[2023-07-24] MEDS: promethazine 25 mg/mL SDV 1 mL 12.5 MG IM (00:10)
[2023-07-24 00:11] VITALS: RESP 18; O2SAT 97
[2023-07-24] MEDS: HYDROmorphone 1 mg/mL INJ 1 mL IM (00:11)
[2023-07-24 00:12] VITALS: BP 124/59; PULSE 68; RESP 18; O2SAT 97
[2023-07-24 00:53] VITALS: BP 138/64; PULSE 70; RESP 15; O2SAT 99
== END 2023-07-24 00:57 | disposition home or self-care (01) ==
PROVIDERS: Emergency Provider Nurse Practitioner Family; PCP Registered Nurse
DX: G89.29 Other chronic pain (principal); R10.84 Generalized abdominal pain; R11.0 Nausea; F17.210 Nicotine dependence, cigarettes, uncomplicated; J44.9 Chronic obstructive pulmonary disease, unspecified
CPT/HCPCS: 96372; 99284; J1170; J2550

== ENCOUNTER 2023-08-15 19:16 | Emergency (ER) | payer MEDICARE, MEDICAID, SELFPAY ==
[2023-08-15 19:42] LABS: Basophils # 0.1 10^3/uL (0.0-0.1); Basophils % 0.9 %; Eosinophils # 0.3 10^3/uL (0.0-0.8); Eosinophils % 2.4 %; Hematocrit 38.7 % (36-47); Lymphocytes # 3.1 10^3/uL (0.8-4.8); Lymphocytes % 22.6 %; Mean Corpuscular HGB Conc 34.6 g/dL (30-55); Mean Corpuscular Hemoglobin 32.8 pg (27-33); Mean Corpuscular Volume 94.9 fl (85-98); Mean Platelet Volume 9.9 fL (7.4-10.4); Monocytes # 0.7 10^3/uL (0.2-0.9); Monocytes % 5.2 %; Neutrophils % 68.5 %; Nucleated Red Blood Cells % 0 %; Platelet Count 256 10^3/cmm (157-399); Red Blood Count 4.08 10^6/uL (3.85-5.65); Red Cell Distribution Width 14.3 % (12.1-15.1); White Blood Count 13.57 10^3/uL (3.29-11.43)
[2023-08-15 19:47] VITALS: BP 98/59; PULSE 117; RESP 16; TEMP 36.8; O2SAT 94; BMI 25.9
[2023-08-15 19:58] LABS: Alanine Aminotransferase 14 U/L (0-33); Albumin Level 3.7 g/dL (3.5-5.2); Alkaline Phosphatase 103 U/L (35-105); Anion Gap 14.2 (5-19); Aspartate Amino Transferase 12 U/L (0-32); Blood Urea Nitrogen 20 mg/dL (6-20); Calcium 9.2 mg/dL (8.5-10.5); Carbon Dioxide 19 mmol/L (22-29); Chloride 106 mmol/L (98-107); Globulin 2.6 g/dL (1.3-4.6); Glucose 97 mg/dL (65-115); Lipase 21 U/L (13-60); Osmolality Calculated 283 mOsm/kg (285-295); Potassium 4.2 mmol/L (3.5-5.1); Sodium 135 mmol/L (136-145); Total Bilirubin 0.2 mg/dL (0.15-1.2); Total Protein 6.3 g/dL (6.6-8.7)
--- NOTE | 2023-08-15 21:22 | W.ED.ABDPA2 ---
HPI - Abdominal Pain General: Chief Complaint: Abdominal Pain Stated Complaint: abd pain n/v Time Seen by Provider: 08/15/23 21:08 Source: patient Mode of arrival: ambulatory Limitations: no limitations History of Present Illness: 57-year-old female who is very well-known to the ER has chronic abdominal pain along with nausea vomiting. States she has been having diffuse pain again today along with vomiting is like her typical. She denies any fever she denies any worsening improving factors she has been following with GI physicians. Associated Symptoms: Reports nausea and vomiting; Denies chills, diarrhea and fever(s) Review of Systems Const: Denies: fever(s), chills, body aches or change in appetite ENMT: Denies: throat pain or dental pain Card: Denies: chest pain Resp: Denies: dyspnea GI: Reports: abdominal pain, nausea and vomiting; Denies: diarrhea Musc: Denies: neck pain or back pain Skin/Breast: Denies: rash Neuro: Denies: headache(s) PFS ED PFSH: Medical History Insomnia Tobacco use disorder Opioid dependence, uncomplicated Cannabis dependence, uncomplicated Psychiatric care Tardive dyskinesia Esophageal stricture Cystitis cystica Chronic gastritis without bleeding Restrictive lung disease Chronic back pain greater than 3 months duration Borderline personality disorder Schizoaffective disorder, bipolar type Urgency incontinence Neurogenic bladder Dysphagia COPD (chronic obstructive pulmonary disease) GERD without esophagitis Foreign body in bladder Bladder stone Chronic anxiety Surgical History H/O bladder repair surgery MESH REPAIR H/O esophagogastroduodenoscopy (09/21/20) H/O colonoscopy with polypectomy History of foot surgery sx in 2009. Screws placed by Dr. Don. S/P bronchoscopy with biopsy History of ureter stent History of breast biopsy Hx of cholecystectomy H/O: hysterectomy History of appendectomy Family History Mother No problems noted. Father No problems noted. Other Asthma Cancer Diabetes Heart disease Social History Smoking and tobacco/nicotine status: current every day tobacco/nicotine user cigarettes Packs smoked per day: 1 Years cigarettes smoked: 20 [ Other cigarette details: Hx of 1 PPD x 20 Years, started at age 27] Quit status (tobacco/nicotine): considering quitting Second hand smoke exposure: Yes Alcohol intake: never Substance/Drug Use: former Lives independently: Yes Household members: spouse Marital status: Number of children: 3 Current occupational status: disabled Do you think of yourself as: Straight/Heterosexual Current gender identity: Female Physical Exam Const: COMMON NORMALS: no acute distress, patient oriented x3 and healthy appearing HENMT: COMMON NORMALS: normocephalic and atraumatic HEAD & SCALP: normocephalic and atraumatic Eye: COMMON NORMALS: Equal, round and reactive pupils present and EOMs intact bilaterally PUPIL: Yes Equal, round and reactive pupils present Neck/C-Spine: COMMON NORMALS: full ROM and supple Chest: COMMONS NORMALS: normal inspection of the chest and normal palpation of entire chest wall Resp: COMMON NORMALS: normal respiratory effort, No retractions, No use of accessory muscles and clear to auscultation bilaterally AUSCULTATION: clear to auscultation bilaterally Cardio: COMMON NORMALS: regular rate, regular rhythm and No murmurs present (Cardio) RATE: regular rate RHYTHM: regular rhythm GI: COMMON NORMALS: Normal to inspection, nondistended, normoactive bowel sounds present, Soft to palpation, non-tender and no masses PALPATION: Yes Soft to palpation Extremity: COMMON NORMALS: normal to inspection and full ROM Neuro: COMMON NORMALS: patient oriented x3, moves all extremities and no focal motor deficits Psych: COMMON NORMALS: mental status grossly normal, Normal thought process present and cooperative THOUGHT PROCESS: Normal thought process present Skin: COMMON NORMALS: no rashes or lesions noted and no wounds GENERAL SKIN EXAM: no rashes or lesions noted Course Vital Signs: Vital signs: Vital Signs Temperature 98.3 F 08/15/23 19:47 Pulse Rate 60 08/15/23 22:00 Respiratory Rate 18 08/15/23 21:41 Blood Pressure 113/66 08/15/23 22:00 Pulse Oximetry 96 08/15/23 22:00 Oxygen Delivery Me thod Room Air 08/15/23 21:23 MDM - Abdominal Pain Medical Decision Making Insert abdominal pain blood work here is normal she is well-appearing here she stable for discharge she is to follow-up with her GI physician return if worsening. Lab Data 08/15/23 19:32 08/15/23 19:32 Labs/Radiology: Laboratory Results WBC 13.57 10^3/uL (3.29-11.43) H 08/15/23 19:32 RBC 4.08 10^6/uL (3.85-5.65) 08/15/23 19:32 Hgb 13.40 g/dL (11.27-16.99) 08/15/23 19:32 Hct 38.7 % (36-47) 08/15/23 19:32 MCV 94.9 fl (85-98) 08/15/23 19:32 MCH 32.8 pg (27-33) 08/15/23 19: MCHC 34.6 g/dL (30-55) 08/15/23 19:32 RDW 14.3 % (12.1-15.1) 08/15/23 19:32 Plt Count 256 10^3/cmm (157-399) 08/15/23 19:32 MPV 9.9 fL (7.4-10.4) 08/15/23 19:32 Neut % (Auto) 68.5 % 08/15/23 19:32 Lymph % (Auto) 22.6 % 08/15/23 19:32 Tama % (Auto) 5.2 % 08/15/23 19: Eos % (Auto) 2.4 % 08/15/23 19:32 Baso % (Auto) 0.9 % 08/15/23:32 Neut # (Auto) 9.30 10^3/uL (1.8-7.7) H 08/15/23 19:32 Lymph # (Auto) 3.1 10^3/uL (0.8-4.8) 08/15/23 19:32 Tama # (Auto) 0.7 10^3/uL (0.2-0.9) 08/15/23 19: Eos # (Auto) 0.3 10^3/uL (0.0-0.8) 08/15/23 19:32 Baso # (Auto) 0.1 10^3/uL (0.0-0.1) 08/15/23 19:32 Nucleated RBC % (auto) 0 % 08/15/23:32 Nucleated RBCs # 0.0 /100WBC 08/15/23 19:32 Sodium 135 mmol/L (136-145) L 08/15/23 19:32 Potassium 4.2 mmol/L (3.5-5.1) 08/15/23 19:32 Chloride 106 mmol/L (98-107) 08/15/23 19:32 Carbon Dioxide 19 mmol/L (22-29) L 08/15/23 19:32 Anion Gap 14.2 (5-19) 08/15/23 19:32 BUN 20 mg/dL (6-20) 08/15/23 19:32 Creatinine 0.9 mg/dL (0.5-0.9) 08/15/23 19:32 GFR Calculation 65.0 mL/min (90-130) L 08/15/23 19:32 Glucose 97 mg/dL (65-115) 08/15/23 19:32 Calculated Osmolality 283 mOsm/kg (285-295) L 08/15/23 19:32 Calcium 9.2 mg/dL (8.5-10.5) 08/15/23 19:32 Total Bilirubin 0.2 mg/dL (0.15-1.2) 08/15/23 19:32 AST 12 U/L (0-32) 08/15/23 19:32 ALT 14 U/L (0-33) 08/15/23 19:32 Alkaline Phosphatase 103 U/L (35-105) 08/15/23 19:32 Total Protein 6.3 g/dL (6.6-8.7) L 08/15/23 19:32 Albumin 3.7 g/dL (3.5-5.2) 08/15/23 19:32 Globulin 2.6 g/dL (1.3-4.6) 08/15/23 19:32 Lipase 21 U/L (13-60) 08/15/23 19:32 No radiology studies performed this visit Discharge Plan Discharge Patient Disposition: Home Clinical Impression: Abdominal pain Qualifiers: Abdominal location: generalized Qualified Code(s): R10.84 - Generalized abdominal pain Condition: Stable Prescriptions: No Action promethazine 25 mg suppository 25 mg [place] Q6H PRN pantoprazole 40 mg tablet,delayed release (DR/EC) 40 mg PO BID Rexulti 2 mg tablet 2 mg PO .q hs Qty: 30 1RF Rx Instructions: Take one tablet daily at bedtime; stop 1 mg dose Trintellix 20 mg tablet 20 mg PO DAILY Qty: 30 1RF Rx Instructions: Take one tablet once daily olanzapine [Zyprexa Zydis] 5 mg tablet,disintegrating 5 mg PO DAILY Qty: 30 1RF Rx Instructions: Dissolve one tablet beneath tongue, once daily, if needed for agitation/anxiety trazodone 100 mg tablet 200 mg PO DAILY PRN (Reason: insomnia) Qty: 60 0RF Rx Instructions: Take two tablets at bedtime, if needed for insomnia lamotrigine 200 mg tablet 200 mg PO DAILY@06 Qty: 30 0RF Rx Instructions: Take one tablet by mouth every morning nystatin 100,000 unit/gram powder 1 applic topical BID Qty: 30 0RF Rx Instructions: apply locally to B/L groin folds albuterol sulfate 90 mcg/actuation HFA aerosol inhaler See Rx Instructions .ROUTE .COMPLEX Qty: 8.5 0RF Dose Instruction: INHALE 2 PUFFS BY MOUTH EVERY 6 HOURS NEEDED FOR SHORTNESS OF BREATH OR WHEEZING Rx Instructions: INHALE 2 PUFFS BY MOUTH EVERY 6 HOURS NEEDED FOR SHORTNESS OF BREATH OR WHEEZING montelukast [Singulair] 10 mg tablet 10 mg PO DAILY 90 Days Qty: 90 0RF pantoprazole 40 mg tablet,delayed release (DR/EC) See Rx Instructions .ROUTE .COMPLEX Qty: 90 0RF Dose Instruction: TAKE 1 TABLET BY MOUTH DAILY AT 6 AM Rx Instructions: TAKE 1 TABLET BY MOUTH DAILY AT 6 AM acetaminophen 500 mg Tablet 1,000 mg PO Q6H PRN (Reason: Pain) Compazine 25 mg suppository 25 mg [place] BID PRN (Reason: nausea and vomiting) Qty: 20 0RF ondansetron 4 mg tablet,disintegrating 4 mg PO Q6H PRN (Reason: nausea and vomiting) Qty: 14 0RF ondansetron 4 mg tablet,disintegrating 4 mg PO Q6H PRN (Reason: nausea and vomiting) Qty: 14 0RF dicyclomine 10 mg capsule 10 mg PO TID Qty: 60 0RF Discharge Orders: Discharge ED (Routine); Ordered 08/15/23 Ordered By: Damien Urbina Referrals: Ayse,Laurica, [employer]ER [Primary Care Provider] - Discharge Diet: Advance as tolerated Discharge Activity: Resume usual activity Patient Instructions: Abdominal Pain (ED) Coding Level of Care Code ED Currency Exchange Specialist for Shellie Guallpa
[2023-08-15 21:23] VITALS: BP 107/65; PULSE 61; RESP 18; O2SAT 97
[2023-08-15 21:41] VITALS: RESP 18
[2023-08-15] MEDS: morphine 4 mg/mL SDV 1 mL IM (21:41)
[2023-08-15] MEDS: ondansetron 2 mg/ML SDV 2 mL 4 MG IM (21:43)
[2023-08-15 22:00] VITALS: BP 113/66; PULSE 60; O2SAT 96
== END 2023-08-15 22:01 | disposition home or self-care (01) ==
PROVIDERS: Emergency Provider Emergency Medicine; PCP Registered Nurse
DX: R10.84 Generalized abdominal pain (principal); F17.210 Nicotine dependence, cigarettes, uncomplicated; J44.9 Chronic obstructive pulmonary disease, unspecified
CPT/HCPCS: 36415; 80053; 83690; 85025; 96372; 99284; J2270; J2405

== ENCOUNTER 2023-08-27 19:33 | Emergency (ER) | payer MEDICARE, MEDICAID, SELFPAY ==
[2023-08-27 19:39] VITALS: BMI 25.6
[2023-08-27 19:45] VITALS: BP 101/64; PULSE 91; RESP 16; TEMP 36.7; O2SAT 93
--- NOTE | 2023-08-27 20:41 | W.ED.ABDPA2 ---
HPI - Abdominal Pain General: Chief Complaint: Abdominal Pain Stated Complaint: abdomen pain Time Seen by Provider: 08/27/23 20:39 History of Present Illness: 57-year-old female comes in today with complaints of generalized abdominal pain with nausea and vomiting starting at 5:00 this morning. Patient does not report any diarrhea. Patient reports similar pain to prior episodes that she has been seen in this ER before for. No fevers reported. Patient was brought in by EMS and given 4 mg of ondansetron and route. Associated Symptoms: Reports nausea and vomiting Review of Systems General: Reports: 10 or more systems reviewed and unremarkable except in HPI and below GI: Reports: abdominal pain, nausea and vomiting PFSH ED PFSH: Medical History Insomnia Tobacco use disorder Opioid dependence, uncomplicated Cannabis dependence, uncomplicated Psychiatric care Tardive dyskinesia Esophageal stricture Cystitis cystica Chronic gastritis without bleeding Restrictive lung disease Chronic back pain greater than 3 months duration Borderline personality disorder Schizoaffective disorder, bipolar type Urgency incontinence Neurogenic bladder Dysphagia COPD (chronic obstructive pulmonary disease) GERD without esophagitis Foreign body in bladder Bladder stone Chronic anxiety Surgical History H/O bladder repair surgery MESH REPAIR H/O esophagogastroduodenoscopy (09/21/20) H/O colonoscopy with polypectomy History of foot surgery sx in 2009. Screws placed by Dr. Don. S/P bronchoscopy with biopsy History of ureter stent History of breast biopsy Hx of cholecystectomy H/O: hysterectomy History of appendectomy Family History Mother No problems noted. Father No problems noted. Other Asthma Cancer Diabetes Heart disease Social History Smoking and tobacco/nicotine status: current every day tobacco/nicotine user cigarettes Packs smoked per day: 1 Years cigarettes smoked: 20 [ Other cigarette details: Hx of 1 PPD x 20 Years, started at age 27] Quit status (tobacco/nicotine): considering quitting Second hand smoke exposure: Yes Alcohol intake: never Substance/Drug Use: former Lives independently: Yes Household members: spouse Marital status: Number of children: 3 Current occupational status: disabled Do you think of yourself as: Straight/Heterosexual Current gender identity: Female Physical Exam Const: COMMON NORMALS: alert HENMT: COMMON NORMALS: normocephalic HEAD & SCALP: normocephalic Neck/C-Spine: COMMON NORMALS: full ROM Resp: COMMON NORMALS: normal respiratory effort and clear to auscultation bilaterally AUSCULTATION: clear to auscultation bilaterally Cardio: COMMON NORMALS: regular rate and regular rhythm RATE: regular rate RHYTHM: regular rhythm GI: COMMON NORMALS: Soft to palpation AUSCULTATION: Yes Hyperactive bowel sounds present PALPATION: Yes Soft to palpation Extremity: COMMON NORMALS: normal to inspection Neuro: SENSORIUM/ORIENTATION: Yes alert Skin: COMMON NORMALS: turgor normal GENERAL SKIN EXAM: turgor normal Course Vital Signs: Vital signs: Vital Signs Temperature 98.1 F 08/27/23 19:45 Pulse Rate 91 08/27/23 19:45 Respiratory Rate 16 08/27/23 19:45 Blood Pressure 101/64 08/27/23 19:45 Pulse Oximetry 93 08/27/23 19:45 Oxygen Delivery Me thod Room Air 08/27/23 19:45 MDM - Abdominal Pain Medical Decision Making Patient presents tonight with complaints of abdominal pain with nausea and vomiting. Patient has soft abdomen with hyperactive bowel sounds. Skin is warm and dry. Differential diagnosis includes but not limited to abdominal migraine, chronic abdominal pain, malingering, substance use disorder. Patient had resolution of symptoms after 10 mg of Compazine IM and 4 mg of morphine. Recommended clear liquid diet until abdominal pain resolves. Recommend follow-up with primary care return to ED for new concerns. Patient reported understanding and agreed to plan. No radiology studies performed this visit Discharge Plan Discharge Patient Disposition: Home Clinical Impression: Intractable abdominal migraine Condition: Stable Prescriptions: No Action promethazine 25 mg suppository 25 mg [place] Q6H PRN pantoprazole 40 mg tablet,delayed release (DR/EC) 40 mg PO BID Rexulti 2 mg tablet 2 mg PO .q hs Qty: 30 1RF Rx Instructions: Take one tablet daily at bedtime; stop 1 mg dose Trintellix 20 mg tablet 20 mg PO DAILY Qty: 30 1RF Rx Instructions: Take one tablet once daily olanzapine [Zyprexa Zydis] 5 mg tablet,disintegrating 5 mg PO DAILY Qty: 30 1RF Rx Instructions: Dissolve one tablet beneath tongue, once daily, if needed for agitation/anxiety trazodone 100 mg tablet 200 mg PO DAILY PRN (Reason: insomnia) Qty: 60 0RF Rx Instructions: Take two tablets at bedtime, if needed for insomnia lamotrigine 200 mg tablet 200 mg PO DAILY@06 Qty: 30 0RF Rx Instructions: Take one tablet by mouth every morning nystatin 100,000 unit/gram powder 1 applic topical BID Qty: 30 0RF Rx Instructions: apply locally to B/L groin folds albuterol sulfate 90 mcg/actuation HFA aerosol inhaler See Rx Instructions .ROUTE .COMPLEX Qty: 8.5 0RF Dose Instruction: INHALE 2 PUFFS BY MOUTH EVERY 6 HOURS NEEDED FOR SHORTNESS OF BREATH OR WHEEZING Rx Instructions: INHALE 2 PUFFS BY MOUTH EVERY 6 HOURS NEEDED FOR SHORTNESS OF BREATH OR WHEEZING montelukast [Singulair] 10 mg tablet 10 mg PO DAILY 90 Days Qty: 90 0RF pantoprazole 40 mg tablet,delayed release (DR/EC) See Rx Instructions .ROUTE .COMPLEX Qty: 90 0RF Dose Instruction: TAKE 1 TABLET BY MOUTH DAILY AT 6 AM Rx Instructions: TAKE 1 TABLET BY MOUTH DAILY AT 6 AM acetaminophen 500 mg Tablet 1,000 mg PO Q6H PRN (Reason: Pain) Compazine 25 mg suppository 25 mg [place] BID PRN (Reason: nausea and vomiting) Qty: 20 0RF ondansetron 4 mg tablet,disintegrating 4 mg PO Q6H PRN (Reason: nausea and vomiting) Qty: 14 0RF ondansetron 4 mg tablet,disintegrating 4 mg PO Q6H PRN (Reason: nausea and vomiting) Qty: 14 0RF dicyclomine 10 mg capsule 10 mg PO TID Qty: 60 0RF Discharge Orders: Discharge ED (Routine); Ordered 08/27/23 Ordered By: Roney Vann Referrals: Dara Tavera FNP [Primary Care Provider] - Discharge Diet: Advance as tolerated Discharge Activity: Increase activity as tolerated Patient Instructions: Abdominal Pain (ED) Activity Restrictions/Additional Instructions: Drink sips of fluid. Increase diet as tolerated. Clear liquid diet until the pain improves. Return to ED for new concerns. Follow-up with primary care. Coding Level of Care Code ED Quality Assurance Calibrator for Shellie Guallpa
[2023-08-27] MEDS: morphine 4 mg/mL SDV 1 mL IM (21:20)
[2023-08-27] MEDS: prochlorperazine 10 mg/2 mL Inj IM (21:20)
[2023-08-27 22:06] VITALS: BP 112/61; PULSE 60; RESP 14; TEMP 36.7; O2SAT 99
== END 2023-08-27 22:07 | disposition home or self-care (01) ==
PROVIDERS: Emergency Provider Nurse Practitioner Family; PCP Registered Nurse
DX: G43.D1 Abdominal migraine, intractable (principal); F17.210 Nicotine dependence, cigarettes, uncomplicated; J44.9 Chronic obstructive pulmonary disease, unspecified
CPT/HCPCS: 96372; 99284; J0780; J2270

== ENCOUNTER 2023-08-28 02:11 | Emergency (ER) | payer MEDICARE, MEDICAID, SELFPAY ==
[2023-08-28 02:24] VITALS: BP 132/61; PULSE 81; RESP 16; TEMP 36.8; O2SAT 98
[2023-08-28] MEDS: diphenhydrAMINE 50 mg/mL SDV 1mL IM (02:39)
[2023-08-28] MEDS: prochlorperazine 10 mg/2 mL Inj IM (02:39)
--- NOTE | 2023-08-28 02:40 | ED_ITS ---
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 States the pain a 6 out of 10 currently denies any vomiting or diarrhea she states she taken her Bentyl with no improvement. Associated Symptoms: Denies chills, diarrhea, fever(s), nausea and vomiting Review of Systems Const: Denies: fever(s), chills, body aches or change in appetite ENMT: Denies: throat pain or dental pain Card: Denies: chest pain Resp: Denies: dyspnea GI: Reports: abdominal pain; Denies: nausea, vomiting or diarrhea Musc: Denies: neck pain or back pain Skin/Breast: Denies: rash Neuro: Denies: headache(s) PFSH ED PFSH: Medical History Insomnia Tobacco use disorder Opioid dependence, uncomplicated Cannabis dependence, uncomplicated Psychiatric care Tardive dyskinesia Esophageal stricture Cystitis cystica Chronic gastritis without bleeding Restrictive lung disease Chronic back pain greater than 3 months duration Borderline personality disorder Schizoaffective disorder, bipolar type Urgency incontinence Neurogenic bladder Dysphagia COPD (chronic obstructive pulmonary disease) GERD without esophagitis Foreign body in bladder Bladder stone Chronic anxiety Surgical History H/O bladder repair surgery MESH REPAIR H/O esophagogastroduodenoscopy (09/21/20) H/O colonoscopy with polypectomy History of foot surgery sx in 2009. Screws placed by Dr. Don. S/P bronchoscopy with biopsy History of ureter stent History of breast biopsy Hx of cholecystectomy H/O: hysterectomy History of appendectomy Family History Mother No problems noted. Father No problems noted. Other Asthma Cancer Diabetes Heart disease Social History Smoking and tobacco/nicotine status: current every day tobacco/nicotine user cigarettes Packs smoked per day: 1 Years cigarettes smoked: 20 [ Other cigarette details: Hx of 1 PPD x 20 Years, started at age 27] Quit status (tobacco/nicotine): considering quitting Second hand smoke exposure: Yes Alcohol intake: never Substance/Drug Use: former Lives independently: Yes Household members: spouse Marital status: Number of children: 3 Current occupational status: disabled Do you think of yourself as: Straight/Heterosexual Current gender identity: Female Physical Exam Const: COMMON NORMALS: no acute distress, patient oriented x3 and healthy appearing HENMT: COMMON NORMALS: normocephalic and atraumatic HEAD & SCALP: normocephalic and atraumatic Eye: COMMON NORMALS: conjunctivae normal CONJUNCTIVA: Yes conjunctivae normal Neck/C-Spine: COMMON NORMALS: full ROM and supple Chest: COMMONS NORMALS: normal inspection of the chest Resp: COMMON NORMALS: normal respiratory effort Cardio: COMMON NORMALS: regular rate RATE: regular rate GI: COMMON NORMALS: Normal to inspection, nondistended, normoactive bowel sounds present, Soft to palpation, non-tender and no masses PALPATION: Yes Soft to palpation Extremity: COMMON NORMALS: normal to inspection and full ROM Neuro: COMMON NORMALS: patient oriented x3, moves all extremities and no focal motor deficits Psych: COMMON NORMALS: mental status grossly normal, Normal thought process present and cooperative THOUGHT PROCESS: Normal thought process present Skin: COMMON NORMALS: no rashes or lesions noted and no wounds GENERAL SKIN EXAM: no rashes or lesions noted Course Vital Signs: Vital signs: Vital Signs Temperature 98.2 F 08/28/23 02:24 Pulse Rate 81 08/28/23 02:24 Respiratory Rate 16 08/28/23 02:24 Blood Pressure 132/61 08/28/23 02:24 Pulse Oximetry 98 08/28/23 02:24 MDM - Abdominal Pain Medical Decision Making Patient presents here with abdominal pain is chronic in nature. Her exam here is benign she feels improved she stable for discharge she is follow-up with PCP return if worsening. Medical Records I reviewed the patient's medical records. No radiology studies performed this visit Discharge Plan Discharge Patient Disposition: Home Clinical Impression: Abdominal pain Qualifiers: Abdominal location: generalized Qualified Code(s): R10.84 - Generalized abdominal pain Condition: Stable Prescriptions: No Action promethazine 25 mg suppository 25 mg [place] Q6H PRN pantoprazole 40 mg tablet,delayed release (DR/EC) 40 mg PO BID Rexulti 2 mg tablet 2 mg PO .q hs Qty: 30 1RF Rx Instructions: Take one tablet daily at bedtime; stop 1 mg dose Trintellix 20 mg tablet 20 mg PO DAILY Qty: 30 1RF Rx Instructions: Take one tablet once daily olanzapine [Zyprexa Zydis] 5 mg tablet,disintegrating 5 mg PO DAILY Qty: 30 1RF Rx Instructions: Dissolve one tablet beneath tongue, once daily, if needed for agitation/anxiety trazodone 100 mg tablet 200 mg PO DAILY PRN (Reason: insomnia) Qty: 60 0RF Rx Instructions: Take two tablets at bedtime, if needed for insomnia lamotrigine 200 mg tablet 200 mg PO DAILY@06 Qty: 30 0RF Rx Instructions: Take one tablet by mouth every morning nystatin 100,000 unit/gram powder 1 applic topical BID Qty: 30 0RF Rx Instructions: apply locally to B/L groin folds albuterol sulfate 90 mcg/actuation HFA aerosol inhaler See Rx Instructions .ROUTE .COMPLEX Qty: 8.5 0RF Dose Instruction: INHALE 2 PUFFS BY MOUTH EVERY 6 HOURS NEEDED FOR SHORTNESS OF BREATH OR WHEEZING Rx Instructions: INHALE 2 PUFFS BY MOUTH EVERY 6 HOURS NEEDED FOR SHORTNESS OF BREATH OR WHEEZING montelukast [Singulair] 10 mg tablet 10 mg PO DAILY 90 Days Qty: 90 0RF pantoprazole 40 mg tablet,delayed release (DR/EC) See Rx Instructions .ROUTE .COMPLEX Qty: 90 0RF Dose Instruction: TAKE 1 TABLET BY MOUTH DAILY AT 6 AM Rx Instructions: TAKE 1 TABLET BY MOUTH DAILY AT 6 AM acetaminophen 500 mg Tablet 1,000 mg PO Q6H PRN (Reason: Pain) Compazine 25 mg suppository 25 mg [place] BID PRN (Reason: nausea and vomiting) Qty: 20 0RF ondansetron 4 mg tablet,disintegrating 4 mg PO Q6H PRN (Reason: nausea and vomiting) Qty: 14 0RF ondansetron 4 mg tablet,disintegrating 4 mg PO Q6H PRN (Reason: nausea and vomiting) Qty: 14 0RF dicyclomine 10 mg capsule 10 mg PO TID Qty: 60 0RF Discharge Orders: Discharge ED (Routine); Ordered 08/28/23 Ordered By: Damien Urbina Referrals: Dara Tavera FNP [Primary Care Provider] - 1-3 days Discharge Diet: Advance as tolerated Discharge Activity: Resume usual activity Patient Instructions: Abdominal Pain (ED) Coding Level of Care Code ED Braille Translator for Shellie Guallpa
== END 2023-08-28 02:49 | disposition home or self-care (01) ==
PROVIDERS: Emergency Provider Emergency Medicine; PCP Registered Nurse
DX: R10.84 Generalized abdominal pain (principal); F17.210 Nicotine dependence, cigarettes, uncomplicated; J44.9 Chronic obstructive pulmonary disease, unspecified
CPT/HCPCS: 96372; 99284; J0780; J1200

== ENCOUNTER 2023-09-11 04:46 | Emergency (ER) | payer MEDICARE, MEDICAID, SELFPAY ==
[2023-09-11 04:47] VITALS: BP 180/92; PULSE 101; RESP 20; TEMP 36.8; O2SAT 99; BMI 25.1
--- NOTE | 2023-09-11 04:54 | ED_ITS ---
HPI - Abdominal Pain 2 General: Chief Complaint: Abdominal Pain Stated Complaint: ABD PAIN Time Seen by Provider: 09/11/23 04:51 History of Present Illness: 57-year-old [facility] complains of generalized abdominal pain and vomiting. She denies any diarrhea. No fever. No blood in the vomitus. She arrives by EMS. Associated Symptoms: Denies chills, diarrhea, fever(s) and hematochezia Review of Systems 2 Const: Denies: fever(s), chills or body aches Eyes: Denies: change in vision Card: Denies: chest pain or palpitations Resp: Denies: dyspnea, productive cough, non-productive cough or wheezing GI: Denies: diarrhea or hematochezia : Denies: difficulty voiding Skin/Breast: Denies: rash Neuro: Denies: headache(s), weakness in extremities, dizziness or confusion PFSH ED 2 PFSH: Medical History Insomnia Tobacco use disorder Opioid dependence, uncomplicated Cannabis dependence, uncomplicated Psychiatric care Tardive dyskinesia Esophageal stricture Cystitis cystica Chronic gastritis without bleeding Restrictive lung disease Chronic back pain greater than 3 months duration Borderline personality disorder Schizoaffective disorder, bipolar type Urgency incontinence Neurogenic bladder Dysphagia COPD (chronic obstructive pulmonary disease) GERD without esophagitis Foreign body in bladder Bladder stone Chronic anxiety Surgical History H/O bladder repair surgery MESH REPAIR H/O esophagogastroduodenoscopy (09/21/20) H/O colonoscopy with polypectomy History of foot surgery sx in 2009. Screws placed by Dr. Don. S/P bronchoscopy with biopsy History of ureter stent History of breast biopsy Hx of cholecystectomy H/O: hysterectomy History of appendectomy Family History Mother No problems noted. Father No problems noted. Other Asthma Cancer Diabetes Heart disease Social History Smoking and tobacco/nicotine status: current every day tobacco/nicotine user cigarettes Packs smoked per day: 1 Years cigarettes smoked: 20 [ Other cigarette details: Hx of 1 PPD x 20 Years, started at age 27] Quit status (tobacco/nicotine): considering quitting Second hand smoke exposure: Yes Alcohol intake: never Substance/Drug Use: former Lives independently: Yes Household members: spouse Marital status: Number of children: 3 Current occupational status: disabled Do you think of yourself as: Straight/Heterosexual Current gender identity: Female Physical Exam 2 Const: COMMON NORMALS: no acute distress GENERAL APPEARANCE: cooperative; not ill appearing and not frail appearing HENMT: COMMON NORMALS: normocephalic, atraumatic and Normal external nose present HEAD & SCALP: normocephalic and atraumatic FACE & SINUS: normal facial exam and face symmetric NOSE: Normal external nose present Eye: COMMON NORMALS: Equal, round and reactive pupils present and EOMs intact bilaterally PUPIL: Yes Equal, round and reactive pupils present Neck/C-Spine: GENERAL: Yes trachea midline Chest: CHEST: Yes Symmetrical chest wall rise Resp: COMMON NORMALS: normal respiratory effort, No retractions, No use of accessory muscles and clear to auscultation bilaterally AUSCULTATION: clear to auscultation bilaterally Cardio: COMMON NORMALS: regular rate and regular rhythm RATE: regular rate RHYTHM: regular rhythm GI: COMMON NORMALS: Normal to inspection, nondistended, normoactive bowel sounds present PALPATION: Yes Tenderness to palpation present (GI) and Yes Guarding due to palpation present (GI) Extremity: COMMON NORMALS: no pedal edema Neuro: JEANINE COMA SCALE: document GCS findings Jeanine coma scale eye opening: Spontaneous Jeanine coma scale verbal response: Orientated [place] coma scale motor response: Obey commands Jeanine coma scale total score: 15 S ENSORY EXAM: Yes extremities (intact) Psych: COMMON NORMALS: speech normal SPEECH: Yes normal speech Skin: COMMON NORMALS: no rashes or lesions noted GENERAL SKIN EXAM: no rashes or lesions noted Course 2 Vital Signs: Vital signs: Vital Signs Temperature 98.3 F 09/11/23 04:47 Pulse Rate 101 H 09/11/23 04:47 Respiratory Rate 16 09/11/23 06:40 Blood Pressure 180/92 09/11/23 04:47 Pulse Oximetry 99 09/11/23 04:47 Oxygen Delivery Me thod Room Air 09/11/23 04:47 MDM - Abdominal Pain Medical Decision Making 57-year-old female well-known to the emergency department service. She has chronic abdominal pain. Her CBC is normal. Her BMP is not remarkable. Liver enzymes are not remarkable. Urinalysis is negative. Lipase is 20. She is improved after IV fluid bolus and pain medication here. She will be allowed discharge home. She is encouraged to call her gastroenterology specialist to follow-up later today. This patient has had multiple advanced imaging studies done on her abdomen pelvis without significant findings. Clinically, I doubt imaging would change her management this morning. Lab Data 09/11/23 05:09 09/11/23 05:42 Labs/Radiology: Laboratory Results WBC 8.31 10^3/uL (3.29-11.43) 09/11/23 05:09 RBC 4.82 10^6/uL (3.85-5.65) 09/11/23 05:09 Hgb 15.40 g/dL (11.27-16.99) 09/11/23 05:09 Hct 45.8 % (36-47) 09/11/23 05:09 MCV 95.0 fl (85-98) 09/11/23 05:09 MCH 32.0 pg (27-33) 09/11/23 05:09 MCHC 33.6 g/dL (30-55) 09/11/23 05:09 RDW 14.9 % (12.1-15.1) 09/11/23 05:09 Plt Count 227 10^3/cmm (157-399) 09/11/23 05:09 MPV 10.7 fL (7.4-10.4) H 09/11/23 05:09 Neut % (Auto) 71.6 % 09/11/23 05:09 Lymph % (Auto) 20.3 % 09/11/23 05:09 [place] % (Auto) 4.6 % 09/11/23 05:09 Eos % (Auto) 2.4 % 09/11/23 05:09 Baso % (Auto) 0.7 % 09/11/23 05:09 Neut # (Auto) 5.95 10^3/uL (1.8-7.7) 09/11/23 05:09 Lymph # (Auto) 1.7 10^3/uL (0.8-4.8) 09/11/23 05:09 [place] # (Auto) 0.4 10^3/uL (0.2-0.9) 09/11/23 05:09 Eos # (Auto) 0.2 10^3/uL (0.0-0.8) 09/11/23 05:09 Baso # (Auto) 0.1 10^3/uL (0.0-0.1) 09/11/23 05:09 Nucleated RBC % (auto) 0 % 09/11/23 05:09 Nucleated RBCs # 0.0 /100WBC 09/11/23 05:09 Sodium 140 mmol/L (136-145) 09/11/23 05:42 Potassium 3.7 mmol/L (3.5-5.1) 09/11/23 05:42 Chloride 108 mmol/L (98-107) H 09/11/23 05:42 Carbon Dioxide 22 mmol/L (22-29) 09/11/23 05:42 Anion Gap 13.7 (5-19) 09/11/23 05:42 BUN 12 mg/dL (6-20) 09/11/23 05:42 Creatinine 0.7 mg/dL (0.5-0.9) 09/11/23 05:42 GFR Calculation 86.9 mL/min (90-130) L 09/11/23 05:42 Glucose 97 mg/dL (65-115) 09/11/23 05:42 Calculated Osmolality 290 mOsm/kg (285-295) 09/11/23 05:42 Lactic Acid 1.0 mmol/L (0.5-2.2) 09/11/23 05:42 Calcium 9.2 mg/dL (8.5-10.5) 09/11/23 05:42 Total Bilirubin 0.2 mg/dL (0.15-1.2) 09/11/23 05:42 AST 10 U/L (0-32) 09/11/23 05:42 ALT 6 U/L (0-33) 09/11/23 05:42 Alkaline Phosphatase 100 U/L (35-105) 09/11/23 05:42 C-Reactive Protein 33.8 mg/L (0.0-4.9) H 09/11/23 05:42 Total Protein 6.7 g/dL (6.6-8.7) 09/11/23 05:42 Albumin 3.9 g/dL (3.5-5.2) 09/11/23 05:42 Globulin 2.8 g/dL (1.3-4.6) 09/11/23 05:42 Lipase 20 U/L (13-60) 09/11/23 05:42 Urine Color Light yellow (Yellow) 09/11/23 05:11 Urine Appearance Clear (CLEAR) 09/11/23 05:11 Urine pH 5 (5-7) 09/11/23 05:11 Ur Specific [place] 1.025 (1.005-1.030) 09/11/23 05:11 Urine Protein Neg (Negative) 09/11/23 05:11 Urine Glucose (UA) Norm (Normal) 09/11/23 05:11 Urine Ketones Negative (Negative) 09/11/23 05:11 Urine Blood 2+ (Negative) H 09/11/23 05:11 Urine Nitrate Negative (Negative) 09/11/23 05:11 Urine Bilirubin Neg (Negative) 09/11/23 05:11 Urine Urobilinogen Neg mg/dL (Negative) 09/11/23 05:11 Ur Leukocyte Esterase Negative (Negative) 09/11/23 05:11 Urine RBC 0-4 /hpf (0-2) H 09/11/23 05:11 Urine WBC 5-10 /hpf (0-5) H 09/11/23 05:11 Ur Squamous Epith Cells 5-10 /hpf (0-5) H 09/11/23 05:11 Amorphous Sediment Not Reportable 09/11/23 05:11 Urine Bacteria 1+ /hpf (NONE) H 09/11/23 05:11 Urine Mucus 2+ /hpf 09/11/23 05:11 No radiology studies performed this visit Discharge Plan Discharge Patient Disposition: Home Clinical Impression: Abdominal pain Condition: Stable Prescriptions: No Action promethazine 25 mg suppository 25 mg [place] Q6H PRN pantoprazole 40 mg tablet,delayed release (DR/EC) 40 mg PO BID Trintellix 20 mg tablet 20 mg PO DAILY Qty: 30 2RF Rx Instructions: Take one tablet once daily trazodone 100 mg tablet 200 mg PO DAILY PRN (Reason: insomnia) Qty: 60 2RF Rx Instructions: Take two tablets at bedtime, if needed for insomnia lamotrigine 200 mg tablet 200 mg PO DAILY@06 Qty: 30 2RF Rx Instructions: Take one tablet by mouth every morning nystatin 100,000 unit/gram powder 1 applic topical BID Qty: 30 0RF Rx Instructions: apply locally to B/L groin folds albuterol sulfate 90 mcg/actuation HFA aerosol inhaler See Rx Instructions .ROUTE .COMPLEX Qty: 8.5 0RF Dose Instruction: INHALE 2 PUFFS BY MOUTH EVERY 6 HOURS NEEDED FOR SHORTNESS OF BREATH OR WHEEZING Rx Instructions: INHALE 2 PUFFS BY MOUTH EVERY 6 HOURS NEEDED FOR SHORTNESS OF BREATH OR WHEEZING quetiapine [Seroquel] 25 mg tablet 25 mg PO TID PRN (Reason: agitation) Qty: 90 0RF Rx Instructions: Take one tablet up to 3 three times a day, if needed for agitation acetaminophen 500 mg Tablet 1,000 mg PO Q6H PRN (Reason: Pain) Compazine 25 mg suppository 25 mg [place] BID PRN (Reason: nausea and vomiting) Qty: 20 0RF ondansetron 4 mg tablet,disintegrating 4 mg PO Q6H PRN (Reason: nausea and vomiting) Qty: 14 0RF dicyclomine 10 mg capsule 10 mg PO TID Qty: 60 0RF Discharge Orders: Discharge ED (Routine); Ordered 09/11/23 Ordered By: Chivo Deleon Referrals: Dara Tavera FNP [Primary Care Provider] - 1-3 days Patient Instructions: Abdominal Pain (ED), Opioid Safety, Pain Management Activity Restrictions/Additional Instructions: Call your manager family later today, and let them know you have been seen here with ongoing abdominal pain. They should be informed that you are losing weight as well. Follow a liquid diet for the next 12 hours, and as pain improves, add back in solids as you tolerate. Coding Level of Care Code ED Ticker Maintainer for Shellie Guallpa
[2023-09-11] MEDS: sodium chloride 0.9% 1,000 ML 999 ML IV (05:13)
[2023-09-11 05:21] LABS: Basophils # 0.1 10^3/uL (0.0-0.1); Basophils % 0.7 %; Eosinophils # 0.2 10^3/uL (0.0-0.8); Eosinophils % 2.4 %; Hematocrit 45.8 % (36-47); Lymphocytes # 1.7 10^3/uL (0.8-4.8); Lymphocytes % 20.3 %; Mean Corpuscular HGB Conc 33.6 g/dL (30-55); Mean Platelet Volume 10.7 fL (7.4-10.4); Monocytes # 0.4 10^3/uL (0.2-0.9); Monocytes % 4.6 %; Neutrophils # 5.95 10^3/uL (1.8-7.7); Neutrophils % 71.6 %; Nucleated Red Blood Cells % 0 %; Platelet Count 227 10^3/cmm (157-399); Red Blood Count 4.82 10^6/uL (3.85-5.65); Red Cell Distribution Width 14.9 % (12.1-15.1); White Blood Count 8.31 10^3/uL (3.29-11.43)
[2023-09-11 05:37] LABS: Add Urine Microscopic? YES; Bacteria Urine 1+ /hpf; Bilirubin Urine Neg (Negative); Blood Urine 2+ (Negative); Glucose Urine UA Norm (Normal); Ketones Urine Negative (Negative); Leukocyte Esterase Urine Negative (Negative); Mucus Urine 2+ /hpf; Nitrate Urine Negative (Negative); Protein Urine Neg (Negative); RBC Urine 0-4 /hpf (0-2); Specific Gravity, Urine 1.025 (1.005-1.030); Urine Appearance Clear (CLEAR); Urine Color Light yellow (Yellow); Urobilinogen Urine Neg (Negative); pH Urine 5 (5-7)
[2023-09-11] MEDS: ondansetron 2 mg/ML SDV 2 mL 4 MG IVP (05:41)
[2023-09-11 05:43] VITALS: RESP 18
[2023-09-11] MEDS: prochlorperazine 10 mg/2 mL Inj IVP (05:43)
[2023-09-11] MEDS: HYDROmorphone 1 mg/mL INJ 1 mL IVP (05:43)
[2023-09-11] MEDS: SUMAtriptan 6 mg/0.5 mL SDV SUBCUT (05:53)
[2023-09-11 06:12] LABS: Alanine Aminotransferase 6 U/L (0-33); Albumin Level 3.9 g/dL (3.5-5.2); Alkaline Phosphatase 100 U/L (35-105); Anion Gap 13.7 (5-19); Aspartate Amino Transferase 10 U/L (0-32); Blood Urea Nitrogen 12 mg/dL (6-20); C Reactive Protein 33.8 mg/L (0.0-4.9); Calcium 9.2 mg/dL (8.5-10.5); Carbon Dioxide 22 mmol/L (22-29); Chloride 108 mmol/L (98-107); Globulin 2.8 g/dL (1.3-4.6); Glomerular Filtration Rate 86.9 mL/min (90-130); Glucose 97 mg/dL (65-115); Lipase 20 U/L (13-60); Osmolality Calculated 290 mOsm/kg (285-295); Potassium 3.7 mmol/L (3.5-5.1); Sodium 140 mmol/L (136-145); Total Bilirubin 0.2 mg/dL (0.15-1.2); Total Protein 6.7 g/dL (6.6-8.7)
[2023-09-11 06:40] VITALS: RESP 16
[2023-09-11] MEDS: morphine 4 mg/mL SDV 1 mL IVP (06:40)
[2023-09-11 06:43] VITALS: BP 123/65; PULSE 65; RESP 18; O2SAT 97
[2023-09-11 06:49] VITALS: BP 125/67; PULSE 76; RESP 18; O2SAT 98
== END 2023-09-11 06:50 | disposition home or self-care (01) ==
PROVIDERS: Emergency Provider Emergency Medicine; PCP Registered Nurse
DX: R10.84 Generalized abdominal pain (principal); F17.210 Nicotine dependence, cigarettes, uncomplicated; J44.9 Chronic obstructive pulmonary disease, unspecified
CPT/HCPCS: 36415; 80053; 81001; 83605; 83690; 85025; 86140; 96361; 96372; 96374; 96375; 99284; J0780; J1170; J2270; J2405; J3030; J7030

== ENCOUNTER → 2023-09-22 08:20 | Outpatient (BNVA) | payer SELFPAY | PROVIDERS: PCP Registered Nurse; Visit Provider Nurse Practitioner Psychiatric/Mental Health | DX: Z79.899 Other long term (current) drug therapy (principal) | CPT/HCPCS: 80061; 83036 ==

== ENCOUNTER 2023-11-21 19:42 | Emergency (ER) | payer MEDICARE, MEDICAID, SELFPAY ==
[2023-11-21 19:46] VITALS: BP 121/49; PULSE 71; RESP 18; O2SAT 98; BMI 25.0
--- NOTE | 2023-11-21 19:57 | ED_ITS ---
HPI - Abdominal Pain 2 General: Chief Complaint: Abdominal Pain Stated Complaint: abdominal pain Time Seen by Provider: 11/21/23 19:43 Source: patient and EMS Mode of arrival: EMS Limitations: no limitations History of Present Illness: 58-year-old female has had a history of chronic abdominal pain patient's well- known to the ER states she has been having increased pain over the last 3 to 4 days states pain is diffuse in nature states she is felt like she had to urinate more as well denies any dysuria she denies any fevers. Denies any worse improved factors Associated Symptoms: Reports nausea; Denies chills, diarrhea, fever(s) and vomiting Review of Systems 2 Const: Denies: fever(s), chills, body aches or change in appetite ENMT: Denies: throat pain or dental pain Card: Denies: chest pain Resp: Denies: dyspnea GI: Reports: abdominal pain and nausea; Denies: vomiting or diarrhea : Reports: urinary frequency Musc: Denies: neck pain or back pain Skin/Breast: Denies: rash Neuro: Denies: headache(s) PFSH ED 2 PFSH: Medical History Insomnia Tobacco use disorder Opioid dependence, uncomplicated Cannabis dependence, uncomplicated Psychiatric care Tardive dyskinesia Esophageal stricture Cystitis cystica Chronic gastritis without bleeding Restrictive lung disease Chronic back pain greater than 3 months duration Borderline personality disorder Schizoaffective disorder, bipolar type Urgency incontinence Neurogenic bladder Dysphagia COPD (chronic obstructive pulmonary disease) GERD without esophagitis Foreign body in bladder Bladder stone Chronic anxiety Surgical History H/O bladder repair surgery MESH REPAIR H/O esophagogastroduodenoscopy (09/21/20) H/O colonoscopy with polypectomy History of foot surgery sx in 2009. Screws placed by Dr. Don. S/P bronchoscopy with biopsy History of ureter stent History of breast biopsy Hx of cholecystectomy H/O: hysterectomy History of appendectomy Family History Mother No problems noted. Father No problems noted. Other Asthma Cancer Diabetes Heart disease Social History Smoking and tobacco/nicotine status: current every day tobacco/nicotine user cigarettes Packs smoked per day: 1 Years cigarettes smoked: 20 [ Other cigarette details: Hx of 1 PPD x 20 Years, started at age 27] Quit status (tobacco/nicotine): considering quitting Second hand smoke exposure: Yes Alcohol intake: never Substance/Drug Use: former Lives independently: Yes Household members: spouse Marital status: Number of children: 3 Current occupational status: disabled Do you think of yourself as: Straight/Heterosexual Current gender identity: Female Physical Exam 2 Const: COMMON NORMALS: no acute distress, patient oriented x3 and healthy appearing HENMT: COMMON NORMALS: normocephalic and atraumatic HEAD & SCALP: n ormocephalic and atraumatic Eye: COMMON NORMALS: Equal, round and reactive pupils present and EOMs intact bilaterally PUPIL: Yes Equal, round and reactive pupils present Neck/C-Spine: COMMON NORMALS: full ROM and supple Chest: COMMONS NORMALS: normal inspection of the chest and normal palpation of entire chest wall Resp: COMMON NORMALS: normal respiratory effort, No retractions, No use of accessory muscles and clear to auscultation bilaterally AUSCULTATION: clear to auscultation bilaterally Cardio: COMMON NORMALS: regular rate, regular rhythm and No murmurs present (Cardio) RATE: regular rate RHYTHM: regular rhythm GI: COMMON NORMALS: Normal to inspection, nondistended, normoactive bowel sounds present, Soft to palpation, non-tender and no masses PALPATION: Yes Soft to palpation Extremity: COMMON NORMALS: normal to inspection and full ROM Neuro: COMMON NORMALS: patient oriented x3, moves all extremities and no focal motor deficits Psych: COMMON NORMALS: mental status grossly normal, Normal thought process present and cooperative THOUGHT PROCESS: Normal thought process present Skin: COMMON NORMALS: no rashes or lesions noted and no wounds GENERAL SKIN EXAM: no rashes or lesions noted Course 2 Vital Signs: Vital signs: Vital Signs Pulse Rate 71 11/21/23 19:46 Respiratory Rate 15 11/21/23 20:51 Blood Pressure 121/49 11/21/23 19:46 Pulse Oximetry 98 11/21/23 19:46 Oxygen Delivery Me thod Room Air 11/21/23 19:46 MDM - Abdominal Pain Medical Decision Making Patient presents with abdominal pain is chronic in nature she is well-appearing her exam is benign blood work is all normal no sign of acute surgical abdomen she stable for discharge follow-up PCP return if worsening Medical Records I reviewed the patient's medical records. Lab Data I reviewed the patient's lab results. 11/21/23 20:04 11/21/23 20:04 Labs/Radiology: Laboratory Results WBC 10.22 10^3/uL (3.29-11.43) 11/21/23 20:04 RBC 4.47 10^6/uL (3.85-5.65) 11/21/23 20:04 Hgb 14.30 g/dL (11.27-16.99) 11/21/23 20:04 Hct 42.8 % (36-47) 11/21/23 20:04 MCV 95.7 fl (85-98) 11/21/23 20:04 MCH 32.0 pg (27-33) 11/21/23 20:04 MCHC 33.4 g/dL (30-55) 11/21/23 20:04 RDW 13.7 % (12.1-15.1) 11/21/23 20:04 Plt Count 202 10^3/cmm (157-399) 11/21/23 20:04 MPV 10.2 fL (7.4-10.4) 11/21/23 20:04 Neut % (Auto) 59.9 % 11/21/23 20:04 Lymph % (Auto) 28.7 % 11/21/23 20:04 Keith % (Auto) 7.1 % 11/21/23 20:04 Eos % (Auto) 3.0 % 11/21/23 20:04 Baso % (Auto) 1.0 % 11/21/23 20:04 Neut # (Auto) 6.12 10^3/uL (1.8-7.7) 11/21/23 20:04 Lymph # (Auto) 2.9 10^3/uL (0.8-4.8) 11/21/23 20:04 Keith # (Auto) 0.7 10^3/uL (0.2-0.9) 11/21/23 20:04 Eos # (Auto) 0.3 10^3/uL (0.0-0.8) 11/21/23 20:04 Baso # (Auto) 0.1 10^3/uL (0.0-0.1) 11/21/23 20:04 Nucleated RBC % (auto) 0 % 11/21/23 20:04 Nucleated RBCs # 0.0 /100WBC 11/21/23 20:04 Sodium 139 mmol/L (136-145) 11/21/23 20:04 Potassium 4.1 mmol/L (3.5-5.1) 11/21/23 20:04 Chloride 106 mmol/L (98-107) 11/21/23 20:04 Carbon Dioxide 21 mmol/L (22-29) L 11/21/23 20:04 Anion Gap 16.1 (5-19) 11/21/23 20:04 BUN 18 mg/dL (6-20) 11/21/23 20:04 Creatinine 0.9 mg/dL (0.5-0.9) 11/21/23 20:04 GFR Calculation 64.8 mL/min (90-130) L 11/21/23 20:04 Glucose 103 mg/dL (65-115) 11/21/23 20:04 Calculated Osmolality 290 mOsm/kg (285-295) 11/21/23 20:04 Calcium 8.8 mg/dL (8.5-10.5) 11/21/23 20:04 Total Bilirubin 0.2 mg/dL (0.15-1.2) 11/21/23 20:04 AST 10 U/L (0-32) 11/21/23 20:04 ALT 7 U/L (0-33) 11/21/23 20:04 Alkaline Phosphatase 114 U/L (35-105) H 11/21/23 20:04 Total Protein 6.9 g/dL (6.6-8.7) 11/21/23 20:04 Albumin 3.9 g/dL (3.5-5.2) 11/21/23 20:04 Globulin 3.0 g/dL (1.3-4.6) 11/21/23 20:04 Lipase 36 U/L (13-60) 11/21/23 20:04 Urine Color Yellow (Yellow) 11/21/23 20:37 Urine Appearance Clear (CLEAR) 11/21/23 20:37 Urine pH 6 (5-7) 11/21/23 20:37 Ur Specific Coila 1.015 (1.005-1.030) 11/21/23 20:37 Urine Protein Neg (Negative) 11/21/23 20:37 Urine Glucose (UA) Norm (Normal) 11/21/23 20:37 Urine Ketones Negative (Negative) 11/21/23 20:37 Urine Blood Neg (Negative) 11/21/23 20:37 Urine Nitrate Negative (Negative) 11/21/23 20:37 Urine Bilirubin Neg (Negative) 11/21/23 20:37 Urine Urobilinogen Neg mg/dL (Negative) 11/21/23 20:37 Ur Leukocyte Esterase Negative (Negative) 11/21/23 20:37 No radiology studies performed this visit Discharge Plan Discharge Patient Disposition: Home Clinical Impression: Abdominal pain Condition: Stable Prescriptions: New ondansetron 4 mg tablet,disintegrating 4 mg PO Q6H PRN (Reason: nausea and vomiting) Qty: 14 0RF No Action promethazine 25 mg suppository 25 mg IN Q6H PRN pantoprazole 40 mg tablet,delayed release (DR/EC) 40 mg PO BID nystatin 100,000 unit/gram powder 1 applic topical BID Qty: 30 0RF Rx Instructions: apply locally to B/L groin folds albuterol sulfate 90 mcg/actuation HFA aerosol inhaler See Rx Instructions .ROUTE .COMPLEX Qty: 8.5 0RF Dose Instruction: INHALE 2 PUFFS BY MOUTH EVERY 6 HOURS NEEDED FOR SHORTNESS OF BREATH OR WHEEZING Rx Instructions: INHALE 2 PUFFS BY MOUTH EVERY 6 HOURS NEEDED FOR SHORTNESS OF BREATH OR WHEEZING Trintellix 20 mg tablet 20 mg PO DAILY Qty: 30 1RF Rx Instructions: Take one tablet once daily trazodone 100 mg tablet 200 mg PO DAILY PRN (Reason: insomnia) Qty: 60 1RF Rx Instructions: Take two tablets at bedtime, if needed for insomnia quetiapine [Seroquel] 25 mg tablet 25 mg PO TID PRN (Reason: agitation) Qty: 90 1RF Rx Instructions: Take one tablet up to 3 three times a day, if needed for agitation lamotrigine 200 mg tablet 200 mg PO DAILY@06 Qty: 30 1RF Rx Instructions: Take one tablet by mouth every morning acetaminophen 500 mg Tablet 1,000 mg PO Q6H PRN (Reason: Pain) Compazine 25 mg suppository 25 mg IN BID PRN (Reason: nausea and vomiting) Qty: 20 0RF ondansetron 4 mg tablet,disintegrating 4 mg PO Q6H PRN (Reason: nausea and vomiting) Qty: 14 0RF dicyclomine 10 mg capsule 10 mg PO TID Qty: 60 0RF Discharge Orders: Discharge ED (Routine); Ordered 11/21/23 Ordered By: Damien Urbina Referrals: Dara Tavera, CATALOGUE COMPILER [Primary Care Provider] - 1-3 days Discharge Diet: Advance as tolerated Discharge Activity: Resume usual activity Patient Instructions: Abdominal Pain (ED) Coding Level of Care Code ED Home Organizer for Shellie Guallpa
[2023-11-21] MEDS: ondansetron 4 MG Tablet PO (19:58)
[2023-11-21] MEDS: HYDROcodone-acetaminophen 7.5-325 mg Tablet 1 TAB PO (19:58)
[2023-11-21 20:10] LABS: Basophils # 0.1 10^3/uL (0.0-0.1); Eosinophils # 0.3 10^3/uL (0.0-0.8); Hematocrit 42.8 % (36-47); Lymphocytes # 2.9 10^3/uL (0.8-4.8); Lymphocytes % 28.7 %; Mean Corpuscular HGB Conc 33.4 g/dL (30-55); Mean Corpuscular Volume 95.7 fl (85-98); Mean Platelet Volume 10.2 fL (7.4-10.4); Monocytes # 0.7 10^3/uL (0.2-0.9); Monocytes % 7.1 %; Neutrophils # 6.12 10^3/uL (1.8-7.7); Neutrophils % 59.9 %; Nucleated Red Blood Cells % 0 %; Platelet Count 202 10^3/cmm (157-399); Red Blood Count 4.47 10^6/uL (3.85-5.65); Red Cell Distribution Width 13.7 % (12.1-15.1); White Blood Count 10.22 10^3/uL (3.29-11.43)
[2023-11-21 20:23] VITALS: BP 114/55; PULSE 60; RESP 15; O2SAT 96
[2023-11-21 20:30] LABS: Alanine Aminotransferase 7 U/L (0-33); Albumin Level 3.9 g/dL (3.5-5.2); Alkaline Phosphatase 114 U/L (35-105); Anion Gap 16.1 (5-19); Aspartate Amino Transferase 10 U/L (0-32); Blood Urea Nitrogen 18 mg/dL (6-20); Calcium 8.8 mg/dL (8.5-10.5); Carbon Dioxide 21 mmol/L (22-29); Chloride 106 mmol/L (98-107); Creatinine Clr Calc Pharmacy 67.6709; Glomerular Filtration Rate 64.8 mL/min (90-130); Glucose 103 mg/dL (65-115); Lipase 36 U/L (13-60); Osmolality Calculated 290 mOsm/kg (285-295); Potassium 4.1 mmol/L (3.5-5.1); Sodium 139 mmol/L (136-145); Total Bilirubin 0.2 mg/dL (0.15-1.2); Total Protein 6.9 g/dL (6.6-8.7)
[2023-11-21] MEDS: ondansetron 2 mg/ML SDV 2 mL 4 MG IVP (20:50)
[2023-11-21] MEDS: sodium chloride 0.9% 1,000 ML 999 ML IV (20:50)
[2023-11-21 20:51] VITALS: RESP 15
[2023-11-21] MEDS: morphine 4 mg/mL SDV 1 mL IVP (20:51)
[2023-11-21 20:53] VITALS: BP 132/88; PULSE 116; RESP 16; O2SAT 94
[2023-11-21 21:01] LABS: Add Urine Microscopic? NO; Charge for UA Resulting for Rev
[2023-11-21 21:05] LABS: Bilirubin Urine Neg (Negative); Blood Urine Neg (Negative); Glucose Urine UA Norm (Normal); Ketones Urine Negative (Negative); Leukocyte Esterase Urine Negative (Negative); Nitrate Urine Negative (Negative); Protein Urine Neg (Negative); Specific Gravity, Urine 1.015 (1.005-1.030); Urine Appearance Clear (CLEAR); Urine Color Yellow (Yellow); Urobilinogen Urine Neg (Negative); pH Urine 6 (5-7)
[2023-11-21 21:23] VITALS: BP 126/69; PULSE 66; RESP 16; O2SAT 97
== END 2023-11-21 21:56 | disposition home or self-care (01) ==
PROVIDERS: Emergency Provider Emergency Medicine; PCP Registered Nurse
DX: R10.9 Unspecified abdominal pain (principal); F17.210 Nicotine dependence, cigarettes, uncomplicated; J44.9 Chronic obstructive pulmonary disease, unspecified; Z87.442 Personal history of urinary calculi
CPT/HCPCS: 36415; 80053; 81003; 83690; 85025; 96361; 96374; 99284; J2270; J2405; J7030; Q0162

== ENCOUNTER → 2024-01-01 08:17 | Outpatient (BNVA) | payer MEDICARE, MEDICAID, SELFPAY | PROVIDERS: PCP Registered Nurse; Visit Provider Podiatrist Foot & Ankle Surgery | DX: M19.072 Primary osteoarthritis, left ankle and foot; M20.21 Hallux rigidus, right foot; M21.41 Flat foot [pes planus] (acquired), right foot; M21.42 Flat foot [pes planus] (acquired), left foot | CPT/HCPCS: 73630; 99213 ==

== ENCOUNTER → 2024-01-23 08:27 | Outpatient (BNVA) | payer MEDICARE, SELFPAY | PROVIDERS: PCP Registered Nurse; Visit Provider Registered Nurse | DX: J18.9 Pneumonia, unspecified organism (principal); E03.9 Hypothyroidism, unspecified | CPT/HCPCS: 80053; 84439; 84443; 85025 ==

== ENCOUNTER 2024-02-14 11:39 | Outpatient (CLI) | payer MEDICARE, MEDICAID, SELFPAY | END 2024-02-14 11:40 | disposition home or self-care (01) | LOC: SPT 11:55 | PROVIDERS: PCP Registered Nurse; Visit Provider Podiatrist Foot & Ankle Surgery | DX: Z46.89 Encounter for fitting and adjustment of other specified devices (principal); M96.0 Pseudarthrosis after fusion or arthrodesis; M21.611 Bunion of right foot; M79.672 Pain in left foot | CPT/HCPCS: L3030 ==

== ENCOUNTER 2024-03-04 15:02 | Outpatient (CLI) | payer MEDICARE, MEDICAID, SELFPAY ==
--- NOTE | 2024-03-04 15:05 | CT_ITS ---
WS: [id number] LDCT LUNG CANCER SCREENING HISTORY: F17.210 - Nicotine dependence, cigarettes, uncomplicated TECHNIQUE: Axial imaging performed from the apices to 1 cm below the costophrenic angles. Coronal and sagittal reformats are submitted with axial MIP series. All CT scans at [facility] use at least one of these dose optimization techniques: automated exposure control; mA and/or kV adjustment per patient size (includes targeted exams where dose is matched to clinical indication); or iterativ e reconstruction. DLP: 47.00 mGy.cm DIvol: Mean CTDIvol: 0.80 (mGy) COMPARISON: 02/01/2022 Diagnostic quality: Satisfactory Lungs: Mild pulmonary hyperexpansion. Mild hazy attenuation throughout both lungs. Ill-defined 3 mm n odule, image 46 of series 4 posterior RIGHT upper lobe. Benign granuloma subpleural anterior RIGHT up per lobe. There are additional small micronodules at the periphery of the upper lobes. Scattered area s of interstitial thickening and groundglass attenuation. Bronchiectasis LEFT upper lobe. Heart: Mild cardiomegaly with no pericardial effusion.. Other findings: No adenopathy identified but enlarged lymph nodes to be difficult to exclude without IV contrast. Mild atherosclerosis aorta. Mildly dilated pulmonary artery. Small hiatal hernia. Prior cholecystectomy. No adrenal mass. CT/CT lung screening [id number] IMPRESSION: LUNG-RADS: 2-Benign Appearance or Behavior FOLLOW UP: 12 Month: Continue annual screening with LDCT OTHER FINDINGS (S MODIFIER): None.
== END 2024-03-04 15:03 | disposition home or self-care (01) ==
LOC: RAD 15:02
PROVIDERS: PCP Registered Nurse; Visit Provider Registered Nurse
DX: Z12.2 Encounter for screening for malignant neoplasm of respiratory organs (principal); F17.210 Nicotine dependence, cigarettes, uncomplicated; R91.8 Other nonspecific abnormal finding of lung field; J84.9 Interstitial pulmonary disease, unspecified; K44.9 Diaphragmatic hernia without obstruction or gangrene; Z90.49 Acquired absence of other specified parts of digestive tract
CPT/HCPCS: 71271

== ENCOUNTER 2024-03-05 12:43 | Outpatient (CLI) | payer MEDICARE, MEDICAID, SELFPAY ==
--- NOTE | 2024-03-05 13:00 | MM_ITS ---
WS: [id number] BILATERAL 3D TOMOSYNTHESIS DIGITAL SCREENING MAMMOGRAPHY WITH CAD CLINICAL INFORMATION: Z12.39 - Encounter for other screening for malignant neop... HISTORY: Screening mammogram. No current complaints. COMPARISON: 2012 TECHNIQUE: Bilateral CC and MLO views. FINDINGS: Scattered fibroglandular densities bilaterally. No suspicious focal mass, asymmetry, calcifications, or architectural distortion. No evidence of malignancy. Coarse dystrophic calcifications bilaterally. MM/MM [facility] tomosynthesis [id number] IMPRESSION: DENSITY: There are scattered areas of fibroglandular density. BI-RADS: 2 - Benign. FOLLOW UP: 1 Year Follow-up Recommend return to annual screening mammography.
--- NOTE | 2024-03-05 14:00 | XR_ITS ---
WS: [id number] SCREENING DEXA SCAN [facility] CLINICAL INFORMATION: M81.0 - Age-related osteoporosis without current patholog... COMPARISON: None. FINDINGS: The L1-L4 bone mineral density measures 1.175 g/cm2. This corresponds to a T score score of 0.0 and Z score of 0.8. Left femoral neck bone mineral density measures 0.839 g/cm2. This corresponds to a T score of -1.3 an d Z score of -0.7. Right femoral neck bone mineral density measures 0.831 g/cm2. This corresponds to a T score -1.4of an d Z score of -0.7. Mean femoral neck bone mineral density measures 0.835 g/cm2. This corresponds to a T score of -1.4 an d Z score of -0.7. XR/XR DEXA axial skeleton* [id number] IMPRESSION: Normal bone mineralization lumbar spine. Osteopenia femoral necks. Patient's FRAX calculated 10 year probability for major osteoporotic fracture i s 16.6% and osteoporotic hip fracture is 4.2%.
== END 2024-03-05 12:44 | disposition home or self-care (01) ==
PROVIDERS: PCP Registered Nurse; Visit Provider Registered Nurse
DX: Z12.31 Encounter for screening mammogram for malignant neoplasm of breast (principal); M81.0 Age-related osteoporosis without current pathological fracture; M85.88 Other specified disorders of bone density and structure, other site
CPT/HCPCS: 77063; 77067; 77080

== ENCOUNTER 2024-05-05 20:05 | Emergency (ER) | payer MEDICARE, MEDICAID, SELFPAY ==
[2024-05-05 20:05] VITALS: BP 150/83; PULSE 77; RESP 18; TEMP 36.4; O2SAT 97; BMI 25.7
[2024-05-05 20:16] VITALS: BP 150/83; PULSE 77; RESP 18; O2SAT 97
[2024-05-05] MEDS: diphenhydrAMINE 50 mg/mL SDV 1mL IM (20:28)
[2024-05-05] MEDS: LORazepam 2 mg/mL INJ 1 mL IM (20:29)
[2024-05-05 20:54] VITALS: BP 144/75; PULSE 74; RESP 16; O2SAT 97
--- NOTE | 2024-05-05 21:01 | ED_ITS ---
HPI - Abdominal Pain General: Chief Complaint: Abdominal Pain Stated Complaint: ABD PAIN Time Seen by Provider: 05/05/24 20:11 History of Present Illness: This patient is a 58-year-old white female who presents to the emergency department complaining of epigastric abdominal pain. Patient states she has been diagnosed with gastroparesis. She states she has taken her dicyclomine as prescribed as well as hydrocodone without any relief tonight. Related Data Home Medications Medication Instructions Recorded Confirmed acetaminophen 500 mg tablet 1,000 mg PO Q6H PRN Pain 07/09/21 03/26/24 pantoprazole 40 mg tablet,delayed 40 mg PO BID 07/27/23 03/26/24 release promethazine 25 mg rectal 25 mg IN Q6H PRN 07/27/23 03/26/24 suppository ondansetron HCl 4 mg tablet 4 mg PO Q8H 01/22/24 03/26/24 neomycin 3.5 mg/g-polymyxin B ophthalmic (eye) 03/07/24 03/07/24 10,000 unit/g-dexameth 0.1 % eye oint ofloxacin 0.3 % eye drops 1 drp ophthalmic (eye) QID 03/26/24 03/26/24 oxycodone 5 mg tablet 2.5 mg PO BID PRN 03/26/24 03/26/24 Previous Rx's Medication Instructions Recorded nystatin 100,000 unit/gram topical 1 applic topical BID #30 grams 06/16/22 powder ondansetron 4 mg disintegrating 4 mg PO Q6H PRN nausea and 11/21/23 tablet vomiting #14 tabs SOLE Supports #1 ea 01/01/24 lamotrigine 200 mg tablet 200 mg PO DAILY@06 #30 tabs 03/26/24 quetiapine 50 mg tablet 50 mg PO BID #60 tabs 03/26/24 vortioxetine 20 mg tablet 20 mg PO .q am #30 tabs 03/26/24 (Trintellix) trazodone 300 mg tablet 300 mg PO .q hs PRN sleep #30 tabs 04/15/24 albuterol sulfate 90 mcg/actuation See Rx Instructions .Route 04/16/24 aerosol inhaler .COMPLEX #8.5 grams quetiapine 25 mg tablet 25 mg PO BID PRN agitation #60 tabs 04/22/24 Allergies Allergy/AdvReac Type Severity Reaction Status Date / Time haloperidol [From Haldol] Allergy Severe unknown Verified 05/05/24 20:33 Penicillins Allergy Severe ALGY-Anaphy Verified 03/26/24 12:48 laxis sulfamethoxazole Allergy Severe ALGY-Hives Verified 03/26/24 12:48 [From Bactrim] Tetracyclines Allergy Severe ALGY-Hives Verified 03/26/24 12:48 gabapentin [From Neurontin] Allergy Intermediate ADR-Halluci Verified 03/26/24 12:48 nating ketorolac [From Toradol] Allergy Intermediate ALGY-Rash Verified 03/26/24 12:48 lithium Allergy Intermediate ADR-Halluci Verified 03/26/24 12:48 nating fentanyl Allergy Mild rash Verified 03/26/24 12:48 adhesive tape Allergy Rash Verified 03/26/24 12:48 codeine Allergy GI Verified 03/26/24 12:48 duloxetine [From Cymbalta] Allergy ALGY-Rash Verified 03/26/24 12:48 fluoxetine Allergy ADR-Migrain Verified 03/26/24 12:48 e metoclopramide [From Reglan] Allergy ADR-Shakine Verified 03/26/24 12:48 ss nitroglycerin Allergy ADV-Weaknes Verified 03/26/24 12:48 s tramadol Allergy Unknown Verified 03/26/24 12:48 trimethoprim [From Bactrim] Allergy ALGY-Hives Verified 03/26/24 12:48 ziprasidone [From Geodon] AdvReac Severe ADR-Halluci Verified 03/26/24 12:48 nating risperidone [From Risperdal] AdvReac ADR-Halluci Verified 03/26/24 12:48 nating Review of Systems General: Reports: 10 or more systems reviewed and unremarkable except in HPI and below GI: Reports: abdominal pain PFSH ED PFSH: Medical History Insomnia Tobacco use disorder Opioid dependence, uncomplicated Cannabis dependence, uncomplicated Psychiatric care Tardive dyskinesia Esophageal stricture Cystitis cystica Chronic gastritis without bleeding Restrictive lung disease Chronic back pain greater than 3 months duration Borderline personality disorder Schizoaffective disorder, bipolar type Urgency incontinence Neurogenic bladder Dysphagia COPD (chronic obstructive pulmonary disease) GERD without esophagitis Foreign body in bladder Bladder stone Chronic anxiety Surgical History H/O bladder repair surgery MESH REPAIR H/O esophagogastroduodenoscopy (09/21/20) H/O colonoscopy with polypectomy History of foot surgery sx in 2009. Screws placed by Dr. Don. S/P bronchoscopy with biopsy History of ureter stent History of breast biopsy Hx of cholecystectomy H/O: hysterectomy History of appendectomy Family History Mother No problems noted. Father No problems noted. Other Asthma Cancer Diabetes Heart disease Social History Smoking and tobacco/nicotine status: current every day tobacco/nicotine user cigarettes Packs smoked per day: 1 Years cigarettes smoked: 20 [ Other cigarette details: Hx of 1 PPD x 20 Years, started at age 27] Quit status (tobacco/nicotine): considering quitting Second hand smoke exposure: Yes Alcohol intake: never Substance/Drug Use: former Lives independently: Yes Household members: spouse Marital status: Number of children: 3 Current occupational status: disabled Do you think of yourself as: Straight/Heterosexual Current gender identity: Female Physical Exam Const: COMMON NORMALS: patient oriented x3 and no limitations GENERAL APPEARANCE: cooperative HENMT: COMMON NORMALS: normocephalic, atraumatic, Normal nasal mucous membranes and turbinates present, moist oral mucous membranes and oropharynx normal HEAD & SCALP: normal to inspection, normocephalic and atraumatic FACE & SINUS: normal facial exam NOSE: Normal nasal mucous membranes and turbinates present Eye: COMMON NORMALS: Equal, round and reactive pupils present, EOMs intact bilaterally and conjunctivae normal GENERAL EYE: appearance normal, both eyes and all related structures CONJUNCTIVA: Yes conjunctivae normal PUPIL: Yes Equal, round and reactive pupils present Neck/C-Spine: COMMON NORMALS: supple and no JVD Chest: COMMONS NORMALS: normal inspection of the chest Resp: COMMON NORMALS: normal respiratory effort and clear to auscultation bilaterally AUSCULTATION: clear to auscultation bilaterally Cardio: COMMON NORMALS: no JVD, regular rate, regular rhythm, No gallops present (Cardio), No murmurs present (Cardio) and No rub (Cardio) RATE: regular rate RHYTHM: regular rhythm GI: COMMON NORMALS: Normal to inspection, nondistended, normoactive bowel sounds present and Soft to palpation AUSCULTATION: Yes normoactive bowel sounds PALPATION: Yes Soft to palpation and Yes Tenderness to palpation present (GI) (Mild epigastric discomfort to deep palpation. No rebound or guarding.) : COMMON NORMALS: Yes no CVA tenderness BLADDER/KIDNEY EXAM: Yes no CVA tenderness Back/Pelvis: COMMON NORMALS: no CVA tenderness and thoracic and lumbar spine normal to inspection Extremity: COMMON NORMALS: normal to inspection Neuro: COMMON NORMALS: patient oriented x3 and CN's II-XII intact bilaterally Psych: COMMON NORMALS: mental status grossly normal, Normal thought process present and cooperative THOUGHT PROCESS: Normal thought process present Skin: COMMON NORMALS: no rashes or lesions noted, turgor normal and no jaundice GENERAL SKIN EXAM: no rashes or lesions noted and turgor normal Course Vital Signs: Vital signs: Vital Signs Temperature 97.5 F L 05/05/24 20:05 Pulse Rate 74 05/05/24 20:54 Respiratory Rate 16 05/05/24 20:54 Blood Pressure 144/75 05/05/24 20:54 Pulse Oximetry 97 05/05/24 20:54 Oxygen Delivery Me thod Room Air 05/05/24 20:16 MDM - Abdominal Pain Medical Decision Making Patient is well-known to me. I have seen her numerous times in various emergency departments. She does have chronic abdominal pain. I did order Haldol, Benadryl and Ativan for her symptoms. She declined the Haldol but did take the Ativan and Benadryl. She was discharged in stable condition instructed to follow-up with her primary care physician and/or specialist for ongoing management. No radiology studies performed this visit Discharge Plan Discharge Patient Disposition: Home Clinical Impression: Abdominal pain, chronic, epigastric Condition: Stable Prescriptions: No Action promethazine 25 mg suppository 25 mg IN Q6H PRN pantoprazole 40 mg tablet,delayed release (DR/EC) 40 mg PO BID (DME) SOLE Supports See Rx Instructions .Route .MEDSUPPLY Qty: 1 0RF Rx Instructions: As directed PRE-Auth oxycodone 5 mg tablet 2.5 mg PO BID PRN ofloxacin 0.3 % drops 1 drp ophthalmic (eye) QID lamotrigine 200 mg tablet 200 mg PO DAILY@06 Qty: 30 1RF Rx Instructions: Take one tablet by mouth every morning quetiapine 50 mg tablet 50 mg PO BID Qty: 60 1RF Rx Instructions: Take one tablet by mouth every morning and at bedtime Trintellix 20 mg tablet 20 mg PO .q am Qty: 30 1RF Rx Instructions: Take one tablet once daily ondansetron HCl 4 mg tablet 4 mg PO Q8H neomycin-polymyxin B-dexameth 3.5 mg/g-10,000 unit/g-0.1 % ointment ophthalmic (eye) nystatin 100,000 unit/gram powder 1 applic topical BID Qty: 30 0RF Rx Instructions: apply locally to B/L groin folds trazodone 300 mg tablet 300 mg PO .q hs PRN (Reason: sleep) Qty: 30 1RF Rx Instructions: Take one tablet daily at bedtime, if needed for sleep albuterol sulfate 90 mcg/actuation HFA aerosol inhaler See Rx Instructions .ROUTE .COMPLEX Qty: 8.5 0RF Dose Instruction: INHALE 2 PUFFS BY MOUTH EVERY 6 HOURS NEEDED FOR SHORTNESS OF BREATH OR WHEEZING Rx Instructions: INHALE 2 PUFFS BY MOUTH EVERY 6 HOURS NEEDED FOR SHORTNESS OF BREATH OR WHEEZING quetiapine 25 mg tablet 25 mg PO BID PRN (Reason: agitation) Qty: 60 0RF Rx Instructions: Take one tablet up to twice a day, if needed, for agitation acetaminophen 500 mg Tablet 1,000 mg PO Q6H PRN (Reason: Pain) ondansetron 4 mg tablet,disintegrating 4 mg PO Q6H PRN (Reason: nausea and vomiting) Qty: 14 0RF Discharge Orders: Discharge ED (Routine); Ordered 05/05/24 Ordered By: Oscar Matthews Referrals: Dara Tavera, REFRIGERATING TECHNICIAN [Primary Care Provider] - Patient Instructions: Abdominal Pain (ED), Opioid Safety, Pain Management Activity Restrictions/Additional Instructions: Follow-up with your primary care physician and specialist for ongoing management of your chronic abdominal pain. Coding Level of Care Code ED Sap Crm Developer for Shellie Guallpa
== END 2024-05-05 20:55 | disposition home or self-care (01) ==
PROVIDERS: Emergency Provider Emergency Medicine; PCP Registered Nurse
DX: R10.13 Epigastric pain (principal); F17.210 Nicotine dependence, cigarettes, uncomplicated; J44.9 Chronic obstructive pulmonary disease, unspecified
CPT/HCPCS: 96372; 99284; J1200; J2060

== ENCOUNTER 2024-05-05 23:57 | Emergency (ER) | payer MEDICARE, MEDICAID, SELFPAY ==
[2024-05-06 00:05] VITALS: BP 158/70; PULSE 82; RESP 16; TEMP 36.4; O2SAT 95
[2024-05-06 01:26] VITALS: BP 149/75; PULSE 78; RESP 16; O2SAT 98
--- NOTE | 2024-05-06 02:36 | ED_ITS ---
HPI - Abdominal Pain 2 General: Chief Complaint: Abdominal Pain Stated Complaint: severe abd pain Time Seen by Provider: 05/06/24 01:55 History of Present Illness: 58-year-old female [facility] She presents with abdominal pain. She has a history of chronic and recurrent abdominal pain. Symptoms are similar to those she is experienced in the past of nausea, an episode of vomiting, bloating. No fever. No blood in the stool. She was seen last night in the emergency department, and given Benadryl and Ativan without much relief. No laboratory was drawn at that point. She has had multiple imaging studies. She tells me that she is set for an upper GI scope the of this month. Related Data Home Medications Medication Instructions Recorded Confirmed acetaminophen 500 mg tablet 1,000 mg PO Q6H PRN Pain 07/09/21 03/26/24 pantoprazole 40 mg tablet,delayed 40 mg PO BID 07/27/23 03/26/24 release promethazine 25 mg rectal 25 mg KS Q6H PRN 07/27/23 03/26/24 suppository ondansetron HCl 4 mg tablet 4 mg PO Q8H 01/22/24 03/26/24 neomycin 3.5 mg/g-polymyxin B ophthalmic (eye) 03/07/24 03/07/24 10,000 unit/g-dexameth 0.1 % eye oint ofloxacin 0.3 % eye drops 1 drp ophthalmic (eye) QID 03/26/24 03/26/24 oxycodone 5 mg tablet 2.5 mg PO BID PRN 03/26/24 03/26/24 Previous Rx's Medication Instructions Recorded nystatin 100,000 unit/gram topical 1 applic topical BID #30 grams 06/16/22 powder ondansetron 4 mg disintegrating 4 mg PO Q6H PRN nausea and 11/21/23 tablet vomiting #14 tabs SOLE Supports #1 ea 01/01/24 lamotrigine 200 mg tablet 200 mg PO DAILY@06 #30 tabs 03/26/24 quetiapine 50 mg tablet 50 mg PO BID #60 tabs 03/26/24 vortioxetine 20 mg tablet 20 mg PO .q am #30 tabs 03/26/24 (Trintellix) trazodone 300 mg tablet 300 mg PO .q hs PRN sleep #30 tabs 04/15/24 albuterol sulfate 90 mcg/actuation See Rx Instructions .Route 04/16/24 aerosol inhaler .COMPLEX #8.5 grams quetiapine 25 mg tablet 25 mg PO BID PRN agitation #60 tabs 04/22/24 Allergies Allergy/AdvReac Type Severity Reaction Status Date / Time haloperidol [From Haldol] Allergy Severe unknown Verified 05/06/24 00:08 Penicillins Allergy Severe ALGY-Anaphy Verified 05/06/24 00:08 laxis sulfamethoxazole Allergy Severe ALGY-Hives Verified 05/06/24 00:08 [From Bactrim] Tetracyclines Allergy Severe ALGY-Hives Verified 05/06/24 00:08 gabapentin [From Neurontin] Allergy Intermediate ADR-Halluci Verified 05/06/24 00:08 nating ketorolac [From Toradol] Allergy Intermediate ALGY-Rash Verified 05/06/24 00:08 lithium Allergy Intermediate ADR-Halluci Verified 05/06/24 00:08 nating fentanyl Allergy Mild rash Verified 05/06/24 00:08 adhesive tape Allergy Rash Verified 05/06/24 00:08 codeine Allergy GI Verified 05/06/24 00:08 duloxetine [From Cymbalta] Allergy ALGY-Rash Verified 05/06/24 00:08 fluoxetine Allergy ADR-Migrain Verified 05/06/24 00:08 e metoclopramide [From Reglan] Allergy ADR-Shakine Verified 05/06/24 00:08 ss nitroglycerin Allergy ADV-Weaknes Verified 05/06/24 00:08 s tramadol Allergy Unknown Verified 05/06/24 00:08 trimethoprim [From Bactrim] Allergy ALGY-Hives Verified 05/06/24 00:08 ziprasidone [From Geodon] AdvReac Severe ADR-Halluci Verified 05/06/24 00:08 nating risperidone [From Risperdal] AdvReac ADR-Halluci Verified 05/06/24 00:08 nating [facility] 2 PFSH: Medical History Insomnia Tobacco use disorder Opioid dependence, uncomplicated Cannabis dependence, uncomplicated Psychiatric care Tardive dyskinesia Esophageal stricture Cystitis cystica Chronic gastritis without bleeding Restrictive lung disease Chronic back pain greater than 3 months duration Borderline personality disorder Schizoaffective disorder, bipolar type Urgency incontinence Neurogenic bladder Dysphagia COPD (chronic obstructive pulmonary disease) GERD without esophagitis Foreign body in bladder Bladder stone Chronic anxiety Surgical History H/O bladder repair surgery MESH REPAIR H/O esophagogastroduodenoscopy (09/21/20) H/O colonoscopy with polypectomy History of foot surgery sx in 2009. Screws placed by Dr. Don. S/P bronchoscopy with biopsy History of ureter stent History of breast biopsy Hx of cholecystectomy H/O: hysterectomy History of appendectomy Family History Mother No problems noted. Father No problems noted. Other Asthma Cancer Diabetes Heart disease Social History Smoking and tobacco/nicotine status: current every day tobacco/nicotine user cigarettes Packs smoked per day: 1 Years cigarettes smoked: 20 [ Other cigarette details: Hx of 1 PPD x 20 Years, started at age 27] Quit status (tobacco/nicotine): considering quitting Second hand smoke exposure: Yes Alcohol intake: never Substance/Drug Use: former Lives independently: Yes Household members: spouse Marital status: Number of children: 3 Current occupational status: disabled Do you think of yourself as: Straight/Heterosexual Current gender identity: Female Physical Exam 2 Const: COMMON NORMALS: no acute distress GENERAL APPEARANCE: cooperative; not ill appearing and not frail appearing HENMT: COMMON NORMALS: normocephalic, atraumatic and Normal external nose present HEAD & SCALP: normocephalic and atraumatic FACE & SINUS: normal facial exam and face symmetric NOSE: Normal external nose present Eye: COMMON NORMALS: Equal, round and reactive pupils present and EOMs intact bilaterally PUPIL: Yes Equal, round and reactive pupils present Neck/C-Spine: GENERAL: Yes trachea midline Chest: CHEST: Yes Symmetrical chest wall rise Resp: COMMON NORMALS: normal respiratory effort, No retractions, No use of accessory muscles and clear to auscultation bilaterally AUSCULTATION: clear to auscultation bilaterally Cardio: COMMON NORMALS: regular rate and regular rhythm RATE: regular rate RHYTHM: regular rhythm GI: COMMON NORMALS: Normal to inspection, nondistended, normoactive bowel sounds present PALPATION: Yes Tenderness to palpation present (GI) (Diffuse) Extremity: COMMON NORMALS: no pedal edema Neuro: JEANINE COMA SCALE: document GCS findings Jeanine coma scale eye opening: Spontaneous [place] coma scale verbal response: Orientated Jeanine coma scale motor response: Obey commands Jeanine coma scale total score: 15 S ENSORY EXAM: Yes extremities (intact) Psych: COMMON NORMALS: speech normal SPEECH: Yes normal speech Skin: COMMON NORMALS: no rashes or lesions noted GENERAL SKIN EXAM: no rashes or lesions noted Course 2 Vital Signs: Vital signs: Vital Signs Temperature 97.6 F 05/06/24 00:05 Pulse Rate 75 05/06/24 03:00 Respiratory Rate 18 05/06/24 03:00 Blood Pressure 149/75 05/06/24 01:26 Pulse Oximetry 96 05/06/24 03:00 MDM - Abdominal Pain Medical Decision Making Latesha actually looks quite good today compared to what we usually see. She tells us that she is left her , is living on her own, and in general is doing much better. She is seeing GI, been diagnosed with gastroparesis, and is supposed to have a scope later this month. She is improved after medication here which includes 1 mg of Dilaudid 4 mg of Zofran. Her laboratory is not remarkable. She will be allowed discharge for outpatient follow-up. Lab Data 05/06/24 03:40 05/06/24 03:40 Labs/Radiology: Laboratory Results WBC 11.90 10^3/uL (3.29-11.43) H 05/06/24 03:40 RBC 3.85 10^6/uL (3.85-5.65) 05/06/24 03:40 Hgb 12.80 g/dL (11.27-16.99) 05/06/24 03:40 Hct 38.2 % (36-47) 05/06/24 03:40 MCV 99.2 fl (85-98) H 05/06/24 03:40 MCH 33.2 pg (27-33) H 05/06/24 03:40 MCHC 33.5 g/dL (30-55) 05/06/24 03:40 RDW 13.4 % (12.1-15.1) 05/06/24 03:40 Plt Count 218 10^3/cmm (157-399) 05/06/24 03:40 MPV 9.5 fL (7.4-10.4) 05/06/24 03:40 Neut % (Auto) 69.4 % 05/06/24 03:40 Lymph % (Auto) 22.5 % 05/06/24 03:40 [place] % (Auto) 5.2 % 05/06/24 03:40 Eos % (Auto) 1.9 % 05/06/24 03:40 Baso % (Auto) 0.7 % 05/06/24 03:40 Neut # (Auto) 8.26 10^3/uL (1.8-7.7) H 05/06/24 03:40 Lymph # (Auto) 2.7 10^3/uL (0.8-4.8) 05/06/24 03:40 [place] # (Auto) 0.6 10^3/uL (0.2-0.9) 05/06/24 03:40 Eos # (Auto) 0.2 10^3/uL (0.0-0.8) 05/06/24 03:40 Baso # (Auto) 0.1 10^3/uL (0.0-0.1) 05/06/24 03:40 Nucleated RBC % (auto) 0 % 05/06/24 03:40 Nucleated RBCs # 0.0 /100WBC 05/06/24 03:40 Sodium 139 mmol/L (136-145) 05/06/24 03:40 Chloride 106 mmol/L (98-107) 05/06/24 03:40 Carbon Dioxide 25 mmol/L (22-29) 05/06/24 03:40 BUN 19 mg/dL (6-20) 05/06/24 03:40 Creatinine 0.7 mg/dL (0.5-0.9) 05/06/24 03:40 Glucose 108 mg/dL (65-115) 05/06/24 03:40 Calculated Osmolality 291 mOsm/kg (285-295) 05/06/24 03:40 Calcium 9.4 mg/dL (8.5-10.5) 05/06/24 03:40 Total Bilirubin 0.2 mg/dL (0.15-1.2) 05/06/24 03:40 AST 17 U/L (0-32) 05/06/24 03:40 ALT 21 U/L (0-33) 05/06/24 03:40 Albumin 3.9 g/dL (3.5-5.2) 05/06/24 03:40 Globulin 2.4 g/dL (1.3-4.6) 05/06/24 03:40 Lipase 25 U/L (13-60) 05/06/24 03:40 Urine Color Yellow (Yellow) 05/06/24 02:50 Urine Appearance Clear (CLEAR) 05/06/24 02:50 Urine pH 7.5 (5-7) 05/06/24 02:50 Ur Specific [place] 1.012 (1.005-1.030) 05/06/24 02:50 Urine Protein Negative (Negative) 05/06/24 02:50 Urine Glucose (UA) Negative (Normal) 05/06/24 02:50 Urine Ketones Negative (Negative) 05/06/24 02:50 Urine Blood Negative (Negative) 05/06/24 02:50 Urine Nitrate Negative (Negative) 05/06/24 02:50 Urine Bilirubin Negative (Negative) 05/06/24 02:50 Urine Urobilinogen 1.0 mg/dL (Negative) 05/06/24 02:50 Ur Leukocyte Esterase Negative (Negative) 05/06/24 02:50 Urine RBC 0-2 /hpf (0-2) 05/06/24 02:50 Urine WBC 0-5 /hpf (0-5) 05/06/24 02:50 Ur Squamous Epith Cells 0-5 /hpf (0-5) 05/06/24 02:50 Amorphous Sediment Not Reportable 05/06/24 02:50 Urine Bacteria None seen /hpf (NONE) 05/06/24 02:50 Hyaline Casts 0.40 /lpf 05/06/24 02:50 No radiology studies performed this visit Discharge Plan Discharge Patient Disposition: Home Clinical Impression: Abdominal pain Qualifiers: Abdominal location: generalized Qualified Code(s): R10.84 - Generalized abdominal pain Condition: Stable Prescriptions: No Action promethazine 25 mg suppository 25 mg KS Q6H PRN pantoprazole 40 mg tablet,delayed release (DR/EC) 40 mg PO BID (DME) SOLE Supports See Rx Instructions .Route .MEDSUPPLY Qty: 1 0RF Rx Instructions: As directed PRE-Auth oxycodone 5 mg tablet 2.5 mg PO BID PRN ofloxacin 0.3 % drops 1 drp ophthalmic (eye) QID lamotrigine 200 mg tablet 200 mg PO DAILY@06 Qty: 30 1RF Rx Instructions: Take one tablet by mouth every morning quetiapine 50 mg tablet 50 mg PO BID Qty: 60 1RF Rx Instructions: Take one tablet by mouth every morning and at bedtime Trintellix 20 mg tablet 20 mg PO .q am Qty: 30 1RF Rx Instructions: Take one tablet once daily ondansetron HCl 4 mg tablet 4 mg PO Q8H neomycin-polymyxin B-dexameth 3.5 mg/g-10,000 unit/g-0.1 % ointment ophthalmic (eye) nystatin 100,000 unit/gram powder 1 applic topical BID Qty: 30 0RF Rx Instructions: apply locally to B/L groin folds trazodone 300 mg tablet 300 mg PO .q hs PRN (Reason: sleep) Qty: 30 1RF Rx Instructions: Take one tablet daily at bedtime, if needed for sleep albuterol sulfate 90 mcg/actuation HFA aerosol inhaler See Rx Instructions .ROUTE .COMPLEX Qty: 8.5 0RF Dose Instruction: INHALE 2 PUFFS BY MOUTH EVERY 6 HOURS NEEDED FOR SHORTNESS OF BREATH OR WHEEZING Rx Instructions: INHALE 2 PUFFS BY MOUTH EVERY 6 HOURS NEEDED FOR SHORTNESS OF BREATH OR WHEEZING quetiapine 25 mg tablet 25 mg PO BID PRN (Reason: agitation) Qty: 60 0RF Rx Instructions: Take one tablet up to twice a day, if needed, for agitation acetaminophen 500 mg Tablet 1,000 mg PO Q6H PRN (Reason: Pain) ondansetron 4 mg tablet,disintegrating 4 mg PO Q6H PRN (Reason: nausea and vomiting) Qty: 14 0RF Discharge Orders: Discharge ED (Routine); Ordered 05/06/24 Ordered By: Chivo Deleon Referrals: Dara Tavera, [employer] [Primary Care Provider] - 1-3 days Patient Instructions: Abdominal Pain (ED), Opioid Safety, Pain Management Activity Restrictions/Additional Instructions: Call your doctor later today for a follow-up appointment. Drink plenty of clear liquids. Coding Level of Care Code ED [employer] Apprentice for Basiag Saloni
[2024-05-06] MEDS: HYDROmorphone 1 mg/mL INJ 1 mL IVP (02:50)
[2024-05-06] MEDS: ondansetron 2 mg/ML SDV 2 mL 4 MG IM (02:50)
[2024-05-06 03:00] VITALS: PULSE 75; RESP 18; O2SAT 96
[2024-05-06 03:21] LABS: Bilirubin Urine Negative (Negative); Blood Urine Negative (Negative); Glucose Urine UA Negative (Normal); Ketones Urine Negative (Negative); Leukocyte Esterase Urine Negative (Negative); Nitrate Urine Negative (Negative); Protein Urine Negative (Negative); Specific Gravity, Urine 1.012 (1.005-1.030); Urine Appearance Clear (CLEAR); Urine Color Yellow (Yellow); pH Urine 7.5 (5-7)
[2024-05-06 03:26] LABS: Add Urine Microscopic? YES; Bacteria Urine None Seen /hpf; RBC Urine 0-2 /hpf (0-2); Squamous Epithelial Cell Urine 0-5 /hpf (0-5); WBC Urine 0-5 /hpf (0-5)
[2024-05-06 03:47] LABS: Basophils # 0.1 10^3/uL (0.0-0.1); Basophils % 0.7 %; Eosinophils # 0.2 10^3/uL (0.0-0.8); Eosinophils % 1.9 %; Hematocrit 38.2 % (36-47); Lymphocytes # 2.7 10^3/uL (0.8-4.8); Lymphocytes % 22.5 %; Mean Corpuscular HGB Conc 33.5 g/dL (30-55); Mean Corpuscular Hemoglobin 33.2 pg (27-33); Mean Corpuscular Volume 99.2 fl (85-98); Mean Platelet Volume 9.5 fL (7.4-10.4); Monocytes # 0.6 10^3/uL (0.2-0.9); Monocytes % 5.2 %; Neutrophils # 8.26 10^3/uL (1.8-7.7); Neutrophils % 69.4 %; Nucleated Red Blood Cells % 0 %; Platelet Count 218 10^3/cmm (157-399); Red Blood Count 3.85 10^6/uL (3.85-5.65); Red Cell Distribution Width 13.4 % (12.1-15.1)
[2024-05-06 04:08] LABS: Alanine Aminotransferase 21 U/L (0-33); Albumin Level 3.9 g/dL (3.5-5.2); Alkaline Phosphatase 119 U/L (35-105); Aspartate Amino Transferase 17 U/L (0-32); Blood Urea Nitrogen 19 mg/dL (6-20); C Reactive Protein 25.5 mg/L (0.0-4.9); Calcium 9.4 mg/dL (8.5-10.5); Carbon Dioxide 25 mmol/L (22-29); Chloride 106 mmol/L (98-107); Creatinine Clr Calc Pharmacy 81.8102; Globulin 2.4 g/dL (1.3-4.6); Glomerular Filtration Rate 86.6 mL/min (90-130); Glucose 108 mg/dL (65-115); Lipase 25 U/L (13-60); Osmolality Calculated 291 mOsm/kg (285-295); Sodium 139 mmol/L (136-145); Total Bilirubin 0.2 mg/dL (0.15-1.2); Total Protein 6.3 g/dL (6.6-8.7)
[2024-05-06 04:21] LABS: Anion Gap 12.1 (5-19); Potassium 4.1 mmol/L (3.5-5.1)
[2024-05-06 05:39] VITALS: BP 152/79; PULSE 75; O2SAT 96
== END 2024-05-06 04:18 | disposition home or self-care (01) ==
PROVIDERS: Emergency Provider Emergency Medicine; PCP Registered Nurse
DX: R10.84 Generalized abdominal pain (principal); F17.210 Nicotine dependence, cigarettes, uncomplicated; J44.9 Chronic obstructive pulmonary disease, unspecified
CPT/HCPCS: 80053; 81001; 83690; 85025; 86140; 96372; 96374; 99284; J1171; J2405

== ENCOUNTER 2024-05-19 23:14 | Emergency (ER) | payer MEDICARE, MEDICAID, SELFPAY ==
[2024-05-19 23:16] VITALS: BP 116/94; PULSE 80; RESP 20; TEMP 36.4; O2SAT 97; BMI 26.2
--- NOTE | 2024-05-19 23:25 | XRR_ITS ---
PROCEDURE INFORMATION: Exam: XR Abdomen Exam date and time: 05/19/2024 11:31 PM Age: 58 years old Clinical indication: Abdominal pain; Generalized; Prior surgery; Surgery date: 6+ months; Surgery type: Breast bx. Gb. Appy. Bladder mesh. Hysterectomy; Patient HX: C/O diffuse abd pain; Additional info: Epigastric abd pain TECHNIQUE: Imaging protocol: Radiologic exam of the abdomen. Views: Frontal supine view of the abdomen. 1 View. COMPARISON: CR XR KUB portable [id number] 05/29/2023 1:15 AM FINDINGS: Gastrointestinal tract: Nonobstructive bowel gas pattern. Large amount of retained stool within the colon from fecal stasis. Intraperitoneal space: Limited evaluation for free air given supine examination. Organs: Status post cholecystectomy clips in the right upper quadrant. Bones/joints: Unremarkable. XR/XR KUB portable [id number] IMPRESSION: As above.
--- NOTE | 2024-05-19 23:27 | ED_ITS ---
Documented by User: ALBERT Byrd 05/20/24 00:02 HPI - Abdominal Pain 2 General: Chief Complaint: Abdominal Pain Stated Complaint: abd pain Time Seen by Provider: 05/19/24 23:17 Source: patient Mode of arrival: EMS Limitations: no limitations History of Present Illness: Patient is a 58-year-old female well-known to the emergency department here who arrives by ambulance for acute on chronic epigastric abdominal pain. Was seen here a few weeks ago for the same complaint, discharged home with normal workup at that time as she did have scheduled upper endoscopy. Reports history of gastroparesis, states she has since underwent the upper endoscopy and is awaiting results. States that about 3 hours prior to arrival she had sudden onset of worsening epigastric pain with a few episodes of vomiting. No blood in her vomit, states it appeared bilious. She is not reporting any diarrhea or constipation. No trauma. Rating her pain a 10/10 at this time, commenting that in the past she was given Dilaudid and this helped this pain. She is currently scheduled for follow-up appointment outpatient with her GI/surgeon tomorrow at [facility], where she underwent the endoscopy. She has only been taken Tylenol at home for pain, did take some Zofran and was given 4 mg of Zofran through an IV by EMS. No shortness of breath or chest pain. Vitals normal at this time. She states she is currently taking 5 medications for her stomach pain. MD elicited complaint: abdominal pain Pertinent past history: other (Gastroparesis) Onset (ago): hour(s) (3) Pain Consistency: constant Location: Epigastric Severity: severe Pain scale (0-10): 10 Quality: stabbing Radiation: none Migration to: no migration Context: recent surgery/procedure (Upper endoscopy last Monday) Associated Symptoms: Reports nausea and vomiting; Denies bloating, change in stool character, chills, constipation, diarrhea, dysuria, fever(s) and hematochezia Related Data Home Medications Medication Instructions Recorded Confirmed acetaminophen 500 mg tablet 1,000 mg PO Q6H PRN Pain 07/09/21 05/10/24 pantoprazole 40 mg tablet,delayed 40 mg PO BID 07/27/23 05/10/24 release promethazine 25 mg rectal 25 mg W[place] Q6H PRN 07/27/23 05/10/24 suppository ondansetron HCl 4 mg tablet 4 mg PO Q8H 01/22/24 05/10/24 oxycodone 5 mg tablet 2.5 mg PO BID PRN 03/26/24 05/10/24 dicyclomine 10 mg capsule mg PO 05/10/24 05/10/24 erythromycin 250 mg tablet PO 05/10/24 05/10/24 lubiprostone 8 mcg capsule mcg PO 05/10/24 05/10/24 prednisolone acetate 1 % eye drp ophthalmic (eye) 05/10/24 05/10/24 drops,suspension Previous Rx's Medication Instructions Recorded nystatin 100,000 unit/gram topical 1 applic topical BID #30 grams 06/16/22 powder ondansetron 4 mg disintegrating 4 mg PO Q6H PRN nausea and 11/21/23 tablet vomiting #14 tabs SOLE Supports #1 ea 01/01/24 lamotrigine 200 mg tablet 200 mg PO DAILY@06 #30 tabs 03/26/24 quetiapine 50 mg tablet 50 mg PO BID #60 tabs 03/26/24 vortioxetine 20 mg tablet 20 mg PO .q am #30 tabs 03/26/24 (Trintellix) trazodone 300 mg tablet 300 mg PO .q hs PRN sleep #30 tabs 04/15/24 quetiapine 25 mg tablet 25 mg PO BID PRN agitation #60 tabs 04/22/24 fluticasone propionate 50 1 spray intranasal DAILY PRN nasal 05/10/24 mcg/actuation nasal congestion 30 days #16 grams spray,suspension (Flonase Allergy Relief) albuterol sulfate 90 mcg/actuation See Rx Instructions .Route 05/13/24 aerosol inhaler .COMPLEX #8.5 grams Allergies Allergy/AdvReac Type Severity Reaction Status Date / Time haloperidol [From Haldol] Allergy Severe unknown Verified 05/10/24 10:20 Penicillins Allergy Severe ALGY-Anaphy Verified 05/10/24 10:20 laxis sulfamethoxazole Allergy Severe ALGY-Hives Verified 05/10/24 10:20 [From Bactrim] Tetracyclines Allergy Severe ALGY-Hives Verified 05/10/24 10:20 gabapentin [From Neurontin] Allergy Intermediate ADR-Halluci Verified 05/10/24 10:20 nating ketorolac [From Toradol] Allergy Intermediate ALGY-Rash Verified 05/10/24 10:20 lithium Allergy Intermediate ADR-Halluci Verified 05/10/24 10:20 nating fentanyl Allergy Mild rash Verified 05/10/24 10:20 adhesive tape Allergy Rash Verified 05/10/24 10:20 codeine Allergy GI Verified 05/10/24 10:20 duloxetine [From Cymbalta] Allergy ALGY-Rash Verified 05/10/24 10:20 fluoxetine Allergy ADR-Migrain Verified 05/10/24 10:20 e metoclopramide [From Reglan] Allergy ADR-Shakine Verified 05/10/24 10:20 ss nitroglycerin Allergy ADV-Weaknes Verified 05/10/24 10:20 s tramadol Allergy Unknown Verified 05/10/24 10:20 trimethoprim [From Bactrim] Allergy ALGY-Hives Verified 05/10/24 10:20 ziprasidone [From Geodon] AdvReac Severe ADR-Halluci Verified 05/10/24 10:20 nating risperidone [From Risperdal] AdvReac ADR-Halluci Verified 05/10/24 10:20 nating Review of Systems 2 General: Reports: 10 or more systems reviewed and unremarkable except in HPI and below Const: Denies: fever(s), chills, change in appetite, change in weight or diaphoresis ENMT: Denies: throat pain or hoarseness Card: Denies: chest pain, palpitations or lightheadedness Resp: Denies: dyspnea, productive cough or wheezing GI: Reports: abdominal pain, nausea and vomiting; Denies: diarrhea, constipation, bloating, change in stool character or hematochezia : Denies: flank pain, difficulty voiding, dysuria, urinary frequency or urinary urgency Musc: Denies: neck pain or back pain Skin/Breast: Denies: rash or new lesions Neuro: Denies: headache(s) or dizziness PFSH ED 2 PFSH: Medical History Insomnia Tobacco use disorder Opioid dependence, uncomplicated Cannabis dependence, uncomplicated Psychiatric care Tardive dyskinesia Esophageal stricture Cystitis cystica Chronic gastritis without bleeding Restrictive lung disease Chronic back pain greater than 3 months duration Borderline personality disorder Schizoaffective disorder, bipolar type Urgency incontinence Neurogenic bladder Dysphagia COPD (chronic obstructive pulmonary disease) GERD without esophagitis Foreign body in bladder Bladder stone Chronic anxiety Surgical History H/O bladder repair surgery MESH REPAIR H/O esophagogastroduodenoscopy (09/21/20) H/O colonoscopy with polypectomy History of foot surgery sx in 2009. Screws placed by Dr. Don. S/P bronchoscopy with biopsy History of ureter stent History of breast biopsy Hx of cholecystectomy H/O: hysterectomy History of appendectomy Family History Mother No problems noted. Father No problems noted. Other Asthma Cancer Diabetes Heart disease Social History Smoking and tobacco/nicotine status: current every day tobacco/nicotine user cigarettes Packs smoked per day: 1 Years cigarettes smoked: 20 [ Other cigarette details: Hx of 1 PPD x 20 Years, started at age 27] Quit status (tobacco/nicotine): considering quitting Second hand smoke exposure: Yes Alcohol intake: never Substance/Drug Use: former Lives independently: Yes Household members: spouse Marital status: Number of children: 3 Current occupational status: disabled Do you think of yourself as: Straight/Heterosexual Current gender identity: Female Physical Exam 2 Const: COMMON NORMALS: no acute distress, patient oriented x3, no limitations, alert and well nourished GENERAL APPEARANCE: cooperative O RIENTATION/CONSCIOUSNESS: Yes awake OTHER: Nontoxic-appearing HENMT: COMMON NORMALS: normocephalic, atraumatic, hearing grossly normal bilaterally, external ears normal, Normal external nose present, Normal nasal mucous membranes and turbinates present and moist oral mucous membranes HEAD & SCALP: normocephalic and atraumatic NOSE: Normal external nose present and Normal nasal mucous membranes and turbinates present EXTERNAL EAR: Yes external ears normal Eye: COMMON NORMALS: Equal, round and reactive pupils present, EOMs intact bilaterally, conjunctivae normal and normal visual cortes by confrontation C ONJUNCTIVA: Yes conjunctivae normal PUPIL: Yes Equal, round and reactive pupils present Neck/C-Spine: COMMON NORMALS: full ROM, supple, no meningeal signs and no JVD Resp: COMMON NORMALS: normal respiratory effort, No retractions, No use of accessory muscles and clear to auscultation bilaterally AUSCULTATION: clear to auscultation bilaterally, no crackles, no rales, no rhonchi and no wheezes Cardio: COMMON NORMALS: no JVD, regular rate, regular rhythm, S1 normal heart sound present, S2 normal heart sound present, No gallops present (Cardio), No clicks present (Cardio), No murmurs present (Cardio), No rub (Cardio) and Peripheral pulses 2+ throughout RATE: regular rate RHYTHM: regular rhythm HEART SOUNDS: S1 normal heart sound present and S2 normal heart sound present PERIPHERAL PULSES: Peripheral pulses 2+ throughout GI: COMMON NORMALS: Normal to inspection, nondistended, normoactive bowel sounds present, Soft to palpation, No hepatosplenomegaly present and no masses AUSCULTATION: Yes normoactive bowel sounds PALPATION: Yes Soft to palpation, No Guarding due to palpation present (GI), No Rigid due to palpation and Yes No hepatosplenomegaly present RECTAL EXAM: deferred OTHER: Endorsing diffuse abdominal tenderness to palpation with very light palpation : COMMON NORMALS: Yes no CVA tenderness BLADDER/KIDNEY EXAM: Yes no CVA tenderness Back/Pelvis: COMMON NORMALS: no CVA tenderness Extremity: COMMON NORMALS: normal to inspection and full ROM Neuro: COMMON NORMALS: patient oriented x3, moves all extremities, no focal motor deficits and no sensory deficits noted SENSORIUM/ORIENTATION: Yes alert MENINGEAL SIGNS: Yes no meningeal signs Psych: COMMON NORMALS: mental status grossly normal, cooperative and speech normal SPEECH: Yes normal speech Skin: COMMON NORMALS: no rashes or lesions noted GENERAL SKIN EXAM: no rashes or lesions noted Course 2 Vital Signs: Vital signs: Vital Signs Temperature 97.6 F 05/19/24 23:16 Pulse Rate 71 05/19/24 23:35 Respiratory Rate 16 05/19/24 23:35 Blood Pressure 116/94 05/19/24 23:35 Pulse Oximetry 96 05/19/24 23:35 Oxygen Delivery Me thod Room Air 05/19/24 23:16 MDM - Abdominal Pain Medical Decision Making Patient well-known to the emergency department here, underwent upper endoscopy last Monday and states she has an appointment tomorrow to discuss the results. Had acute onset of epigastric pain few hours prior to arrival, this has been improved with Dilaudid which she states she has received in the past that has helped the pain. Nausea also has been controlled with Zofran. Her lab work was all normal. KUB showing increase in fecal stool burden, this could explain the increase in pain. Informed her to double her normal MiraLAX dose, keep follow-up for tomorrow. Vitals have been stable throughout ED course, no concern for iatrogenic cause of her pain at this time. Return precautions given. Lab Data 05/19/24 23:29 05/19/24: Labs/Radiology: Radiology Impressions KUB X-Ray 05/19/24 23: IMPRESSION: As above. Laboratory Results WBC 8.05 10^3/uL (3.29-11.43) 05/19/24: RBC 3.95 10^6/uL (3.85-5.65) 05/19/24: Hgb 13.10 g/dL (11.27-16.99) 05/19/24: Hct 39.0 % (36-47) 05/19/24: MCV 98.7 fl (85-98) H 05/19/24 23: MCH 33.2 pg (27-33) H 05/19/24: MCHC 33.6 g/dL (30-55) 05/19/24: RDW 13.7 % (12.1-15.1) 05/19/24: Plt Count 232 10^3/cmm (157-399) 05/19/24: MPV 9.3 fL (7.4-10.4) 05/19/24: Neut % (Auto) 47.6 % 05/19/24 23: Lymph % (Auto) 37.5 % 05/19/24 23: [place] % (Auto) 9.1 % 05/19/24: Eos % (Auto) 4.5 % 05/19/24: Baso % (Auto) 1.2 % 05/19/24: Neut # (Auto) 3.83 10^3/uL (1.8-7.7) 05/19/24: Lymph # (Auto) 3.0 10^3/uL (0.8-4.8) 05/19/24 23:29 [place] # (Auto) 0.7 10^3/uL (0.2-0.9) 05/19/24 23:29 Eos # (Auto) 0.4 10^3/uL (0.0-0.8) 05/19/24 23:29 Baso # (Auto) 0.1 10^3/uL (0.0-0.1) 05/19/24 23:29 Nucleated RBC % (auto) 0 % 05/19/24 23: Nucleated RBCs # 0.0 /100WBC 05/19/24 23:29 Sodium 139 mmol/L (136-145) 05/19/24 23:29 Potassium 4.1 mmol/L (3.5-5.1) 05/19/24 23:29 Chloride 104 mmol/L (98-107) 05/19/24 23:29 Carbon Dioxide 23 mmol/L (22-29) 05/19/24 23:29 Anion Gap 16.1 (5-19) 05/19/24 23:29 BUN 18 mg/dL (6-20) 05/19/24 23:29 Creatinine 0.9 mg/dL (0.5-0.9) 05/19/24 23:29 GFR Calculation 64.8 mL/min (90-130) L 05/19/24 23:29 Glucose 100 mg/dL (65-115) 05/19/24 23:29 Calculated Osmolality 290 mOsm/kg (285-295) 05/19/24 23:29 Calcium 9.2 mg/dL (8.5-10.5) 05/19/24 23:29 Total Bilirubin 0.2 mg/dL (0.15-1.2) 05/19/24 23:29 AST 16 U/L (0-32) 05/19/24 23:29 ALT 18 U/L (0-33) 05/19/24 23:29 Alkaline Phosphatase 127 U/L (35-105) H 05/19/24 23:29 Total Protein 6.6 g/dL (6.6-8.7) 05/19/24 23:29 Albumin 4.0 g/dL (3.5-5.2) 05/19/24 23: Globulin 2.6 g/dL (1.3-4.6) 05/19/24 23:29 Lipase 28 U/L (13-60) 05/19/24 23:29 All radiology interpretation(s) finalized by discharge Discharge Plan Discharge Patient Disposition: Home Clinical Impression: Abdominal pain Qualifiers: Abdominal location: epigastric Qualified Code(s): R10.13 - Epigastric pain Condition: Stable Prescriptions: No Action promethazine 25 mg suppository 25 mg [place] Q6H PRN pantoprazole 40 mg tablet,delayed release (DR/EC) 40 mg PO BID (DME) SOLE Supports See Rx Instructions .Route .MEDSUPPLY Qty: 1 0RF Rx Instructions: As directed PRE-Auth oxycodone 5 mg tablet 2.5 mg PO BID PRN lamotrigine 200 mg tablet 200 mg PO DAILY@06 Qty: 30 1RF Rx Instructions: Take one tablet by mouth every morning quetiapine 50 mg tablet 50 mg PO BID Qty: 60 1RF Rx Instructions: Take one tablet by mouth every morning and at bedtime Trintellix 20 mg tablet 20 mg PO .q am Qty: 30 1RF Rx Instructions: Take one tablet once daily erythromycin 250 mg tablet PO prednisolone acetate 1 % drops,suspension ophthalmic (eye) dicyclomine 10 mg capsule PO lubiprostone 8 mcg capsule PO fluticasone propionate [Flonase Allergy Relief] 50 mcg/actuation spray,suspension 1 spray intranasal DAILY PRN (Reason: nasal congestion) 30 Days Qty: 16 2RF Rx Instructions: administer into each nostril ondansetron HCl 4 mg tablet 4 mg PO Q8H nystatin 100,000 unit/gram powder 1 applic topical BID Qty: 30 0RF Rx Instructions: apply locally to B/L groin folds trazodone 300 mg tablet 300 mg PO .q hs PRN (Reason: sleep) Qty: 30 1RF Rx Instructions: Take one tablet daily at bedtime, if needed for sleep quetiapine 25 mg tablet 25 mg PO BID PRN (Reason: agitation) Qty: 60 0RF Rx Instructions: Take one tablet up to twice a day, if needed, for agitation albuterol sulfate 90 mcg/actuation HFA aerosol inhaler See Rx Instructions .ROUTE .COMPLEX Qty: 8.5 0RF Dose Instruction: INHALE 2 PUFFS BY MOUTH EVERY 6 HOURS NEEDED FOR SHORTNESS OF BREATH OR WHEEZING Rx Instructions: INHALE 2 PUFFS BY MOUTH EVERY 6 HOURS NEEDED FOR SHORTNESS OF BREATH OR WHEEZING acetaminophen 500 mg Tablet 1,000 mg PO Q6H PRN (Reason: Pain) ondansetron 4 mg tablet,disintegrating 4 mg PO Q6H PRN (Reason: nausea and vomiting) Qty: 14 0RF Discharge Orders: Discharge ED (Routine); Ordered 05/19/24 Ordered By: Edgar Brown Referrals: Dara Tavera, [employer] DES[employer] [Primary Care Provider] - Patient Instructions: Abdominal Pain (ED), Opioid Safety, Pain Management Activity Restrictions/Additional Instructions: Keep follow-up with your general surgeon tomorrow to discuss endoscopy results and for further evaluation. Continue taking Zofran at home for nausea, Tylenol for pain. Drink plenty of fluids. May also take MiraLAX for any constipation. Return with any new or worsening. 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 [employer]g Fwd Documented by User: Chivo Deleon DO 05/20/24 00:50 HPI - Abdominal Pain 2 General: Chief Complaint: Abdominal Pain Stated Complaint: abd pain Time Seen by Provider: 05/19/24 23:17 Related Data Home Medications Medication Instructions Recorded Confirmed acetaminophen 500 mg tablet 1,000 mg PO Q6H PRN Pain 07/09/21 05/10/24 pantoprazole 40 mg tablet,delayed 40 mg PO BID 07/27/23 05/10/24 release promethazine 25 mg rectal 25 mg WY Q6H PRN 07/27/23 05/10/24 suppository ondansetron HCl 4 mg tablet 4 mg PO Q8H 01/22/24 05/10/24 oxycodone 5 mg tablet 2.5 mg PO BID PRN 03/26/24 05/10/24 dicyclomine 10 mg capsule mg PO 05/10/24 05/10/24 erythromycin 250 mg tablet PO 05/10/24 05/10/24 lubiprostone 8 mcg capsule mcg PO 05/10/24 05/10/24 prednisolone acetate 1 % eye drp ophthalmic (eye) 05/10/24 05/10/24 drops,suspension Previous Rx's Medication Instructions Recorded nystatin 100,000 unit/gram topical 1 applic topical BID #30 grams 06/16/22 powder ondansetron 4 mg disintegrating 4 mg PO Q6H PRN nausea and 11/21/23 tablet vomiting #14 tabs SOLE Supports #1 ea 01/01/24 lamotrigine 200 mg tablet 200 mg PO DAILY@06 #30 tabs 03/26/24 quetiapine 50 mg tablet 50 mg PO BID #60 tabs 03/26/24 vortioxetine 20 mg tablet 20 mg PO .q am #30 tabs 03/26/24 (Trintellix) trazodone 300 mg tablet 300 mg PO .q hs PRN sleep #30 tabs 04/15/24 quetiapine 25 mg tablet 25 mg PO BID PRN agitation #60 tabs 04/22/24 fluticasone propionate 50 1 spray intranasal DAILY PRN nasal 05/10/24 mcg/actuation nasal congestion 30 days #16 grams spray,suspension (Flonase Allergy Relief) albuterol sulfate 90 mcg/actuation See Rx Instructions .Route 05/13/24 aerosol inhaler .COMPLEX #8.5 grams Allergies Allergy/AdvReac Type Severity Reaction Status Date / Time haloperidol [From Haldol] Allergy Severe unknown Verified 05/10/24 10:20 Penicillins Allergy Severe ALGY-Anaphy Verified 05/10/24 10:20 laxis sulfamethoxazole Allergy Severe ALGY-Hives Verified 05/10/24 10:20 [From Bactrim] Tetracyclines Allergy Severe ALGY-Hives Verified 05/10/24 10:20 gabapentin [From Neurontin] Allergy Intermediate ADR-Halluci Verified 05/10/24 10:20 nating ketorolac [From Toradol] Allergy Intermediate ALGY-Rash Verified 05/10/24 10:20 lithium Allergy Intermediate ADR-Halluci Verified 05/10/24 10:20 nating fentanyl Allergy Mild rash Verified 05/10/24 10:20 adhesive tape Allergy Rash Verified 05/10/24 10:20 codeine Allergy GI Verified 05/10/24 10:20 duloxetine [From Cymbalta] Allergy ALGY-Rash Verified 05/10/24 10:20 fluoxetine Allergy ADR-Migrain Verified 05/10/24 10:20 e metoclopramide [From Reglan] Allergy ADR-Shakine Verified 05/10/24 10:20 ss nitroglycerin Allergy ADV-Weaknes Verified 05/10/24 10:20 s tramadol Allergy Unknown Verified 05/10/24 10:20 trimethoprim [From Bactrim] Allergy ALGY-Hives Verified 05/10/24 10:20 ziprasidone [From Geodon] AdvReac Severe ADR-Halluci Verified 05/10/24 10:20 nating risperidone [From Risperdal] AdvReac ADR-Halluci Verified 05/10/24 10:20 nating [facility] ED 2 PFSH: Medical History Insomnia Tobacco use disorder Opioid dependence, uncomplicated Cannabis dependence, uncomplicated Psychiatric care Tardive dyskinesia Esophageal stricture Cystitis cystica Chronic gastritis without bleeding Restrictive lung disease Chronic back pain greater than 3 months duration Borderline personality disorder Schizoaffective disorder, bipolar type Urgency incontinence Neurogenic bladder Dysphagia COPD (chronic obstructive pulmonary disease) GERD without esophagitis Foreign body in bladder Bladder stone Chronic anxiety Surgical History H/O bladder repair surgery MESH REPAIR H/O esophagogastroduodenoscopy (09/21/20) H/O colonoscopy with polypectomy History of foot surgery sx in 2009. Screws placed by Dr. Don. S/P bronchoscopy with biopsy History of ureter stent History of breast biopsy Hx of cholecystectomy H/O: hysterectomy History of appendectomy Family History Mother No problems noted. Father No problems noted. Other Asthma Cancer Diabetes Heart disease Social History Smoking and tobacco/nicotine status: current every day tobacco/nicotine user cigarettes Packs smoked per day: 1 Years cigarettes smoked: 20 [ Other cigarette details: Hx of 1 PPD x 20 Years, started at age 27] Quit status (tobacco/nicotine): considering quitting Second hand smoke exposure: Yes Alcohol intake: never Substance/Drug Use: former Lives independently: Yes Household members: spouse Marital status: Number of children: 3 Current occupational status: disabled Do you think of yourself as: Straight/Heterosexual Current gender identity: Female Course 2 Vital Signs: Vital signs: Vital Signs Temperature 97.6 F 05/19/24 23:16 Pulse Rate 71 05/19/24 23:35 Respiratory Rate 16 05/19/24 23:35 Blood Pressure 116/94 05/19/24 23:35 Pulse Oximetry 96 05/19/24 23:35 Oxygen Delivery Me thod Room Air 05/19/24 23:16 MDM - Abdominal Pain Medical Decision Making Patient well-known to the emergency department here, underwent upper endoscopy last Monday and states she has an appointment tomorrow to discuss the results. Had acute onset of epigastric pain few hours prior to arrival, this has been improved with Dilaudid which she states she has received in the past that has helped the pain. Nausea also has been controlled with Zofran. Her lab work was all normal. KUB showing increase in fecal stool burden, this could explain the increase in pain. Informed her to double her normal MiraLAX dose, keep follow-up for tomorrow. Vitals have been stable throughout ED course, no concern for iatrogenic cause of her pain at this time. Return precautions given. This patient was originally seen by Mr. Stephanie PA-C.? I agree with his history, evaluation, and treatment. Lab Data 05/19/24 23:29 05/19/24 23:29 Labs/Radiology: Radiology Impressions KUB X-Ray 05/19/24 23:25 IMPRESSION: As above. Laboratory Results WBC 8.05 10^3/uL (3.29-11.43) 05/19/24 23:29 RBC 3.95 10^6/uL (3.85-5.65) 05/19/24 23:29 Hgb 13.10 g/dL (11.27-16.99) 05/19/24 23:29 Hct 39.0 % (36-47) 05/19/24 23:29 MCV 98.7 fl (85-98) H 05/19/24 23:29 MCH 33.2 pg (27-33) H 05/19/24 23:29 MCHC 33.6 g/dL (30-55) 05/19/24 23:29 RDW 13.7 % (12.1-15.1) 05/19/24 23:29 Plt Count 232 10^3/cmm (157-399) 05/19/24 23:29 MPV 9.3 fL (7.4-10.4) 05/19/24 23:29 Neut % (Auto) 47.6 % 05/19/24 23: Lymph % (Auto) 37.5 % 05/19/24 23: [place] % (Auto) 9.1 % 05/19/24 23: Eos % (Auto) 4.5 % 05/19/24 23:29 Baso % (Auto) 1.2 % 05/19/24 23: Neut # (Auto) 3.83 10^3/uL (1.8-7.7) 05/19/24 23: Lymph # (Auto) 3.0 10^3/uL (0.8-4.8) 05/19/24 23: [place] # (Auto) 0.7 10^3/uL (0.2-0.9) 05/19/24 23: Eos # (Auto) 0.4 10^3/uL (0.0-0.8) 05/19/24 23: Baso # (Auto) 0.1 10^3/uL (0.0-0.1) 05/19/24 23:29 Nucleated RBC % (auto) 0 % 05/19/24 23: Nucleated RBCs # 0.0 /100WBC 05/19/24 23:29 Sodium 139 mmol/L (136-145) 05/19/24 23: Potassium 4.1 mmol/L (3.5-5.1) 05/19/24 23: Chloride 104 mmol/L (98-107) 05/19/24 23:29 Carbon Dioxide 23 mmol/L (22-29) 05/19/24 23:29 Anion Gap 16.1 (5-19) 05/19/24 23:29 BUN 18 mg/dL (6-20) 05/19/24 23: Creatinine 0.9 mg/dL (0.5-0.9) 05/19/24 23:29 GFR Calculation 64.8 mL/min (90-130) L 05/19/24 23:29 Glucose 100 mg/dL (65-115) 05/19/24 23:29 Calculated Osmolality 290 mOsm/kg (285-295) 05/19/24 23:29 Calcium 9.2 mg/dL (8.5-10.5) 05/19/24 23:29 Total Bilirubin 0.2 mg/dL (0.15-1.2) 05/19/24 23:29 AST 16 U/L (0-32) 05/19/24 23:29 ALT 18 U/L (0-33) 05/19/24 23:29 Alkaline Phosphatase 127 U/L (35-105) H 05/19/24 23:29 Total Protein 6.6 g/dL (6.6-8.7) 05/19/24 23:29 Albumin 4.0 g/dL (3.5-5.2) 05/19/24 23:29 Globulin 2.6 g/dL (1.3-4.6) 05/19/24 23:29 Lipase 28 U/L (13-60) 05/19/24 23:29 Discharge Plan Discharge Patient Disposition: Home Clinical Impression: Abdominal pain Qualifiers: Abdominal location: epigastric Qualified Code(s): R10.13 - Epigastric pain Condition: Stable Prescriptions: No Action promethazine 25 mg suppository 25 mg WY Q6H PRN pantoprazole 40 mg tablet,delayed release (DR/EC) 40 mg PO BID (DME) SOLE Supports See Rx Instructions .Route .MEDSUPPLY Qty: 1 0RF Rx Instructions: As directed PRE-Auth oxycodone 5 mg tablet 2.5 mg PO BID PRN lamotrigine 200 mg tablet 200 mg PO DAILY@06 Qty: 30 1RF Rx Instructions: Take one tablet by mouth every morning quetiapine 50 mg tablet 50 mg PO BID Qty: 60 1RF Rx Instructions: Take one tablet by mouth every morning and at bedtime Trintellix 20 mg tablet 20 mg PO .q am Qty: 30 1RF Rx Instructions: Take one tablet once daily erythromycin 250 mg tablet PO prednisolone acetate 1 % drops,suspension ophthalmic (eye) dicyclomine 10 mg capsule PO lubiprostone 8 mcg capsule PO fluticasone propionate [Flonase Allergy Relief] 50 mcg/actuation spray,suspension 1 spray intranasal DAILY PRN (Reason: nasal congestion) 30 Days Qty: 16 2RF Rx Instructions: administer into each nostril ondansetron HCl 4 mg tablet 4 mg PO Q8H nystatin 100,000 unit/gram powder 1 applic topical BID Qty: 30 0RF Rx Instructions: apply locally to B/L groin folds trazodone 300 mg tablet 300 mg PO .q hs PRN (Reason: sleep) Qty: 30 1RF Rx Instructions: Take one tablet daily at bedtime, if needed for sleep quetiapine 25 mg tablet 25 mg PO BID PRN (Reason: agitation) Qty: 60 0RF Rx Instructions: Take one tablet up to twice a day, if needed, for agitation albuterol sulfate 90 mcg/actuation HFA aerosol inhaler See Rx Instructions .ROUTE .COMPLEX Qty: 8.5 0RF Dose Instruction: INHALE 2 PUFFS BY MOUTH EVERY 6 HOURS NEEDED FOR SHORTNESS OF BREATH OR WHEEZING Rx Instructions: INHALE 2 PUFFS BY MOUTH EVERY 6 HOURS NEEDED FOR SHORTNESS OF BREATH OR WHEEZING acetaminophen 500 mg Tablet 1,000 mg PO Q6H PRN (Reason: Pain) ondansetron 4 mg tablet,disintegrating 4 mg PO Q6H PRN (Reason: nausea and vomiting) Qty: 14 0RF Discharge Orders: Discharge ED (Routine); Ordered 05/19/24 Ordered By: Edgar Brown Referrals: Dara Tavera, CIRCUIT DESIGNER [Primary Care Provider] - Patient Instructions: Abdominal Pain (ED), Opioid Safety, Pain Management Activity Restrictions/Additional Instructions: Keep follow-up with your general surgeon tomorrow to discuss endoscopy results and for further evaluation. Continue taking Zofran at home for nausea, Tylenol for pain. Drink plenty of fluids. May also take MiraLAX for any constipation. Return with any new or worsening. 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 Shellie Guallpa
[2024-05-19 23:33] LABS: Basophils # 0.1 10^3/uL (0.0-0.1); Basophils % 1.2 %; Eosinophils # 0.4 10^3/uL (0.0-0.8); Eosinophils % 4.5 %; Lymphocytes % 37.5 %; Mean Corpuscular HGB Conc 33.6 g/dL (30-55); Mean Corpuscular Hemoglobin 33.2 pg (27-33); Mean Corpuscular Volume 98.7 fl (85-98); Mean Platelet Volume 9.3 fL (7.4-10.4); Monocytes # 0.7 10^3/uL (0.2-0.9); Monocytes % 9.1 %; Neutrophils # 3.83 10^3/uL (1.8-7.7); Neutrophils % 47.6 %; Nucleated Red Blood Cells % 0 %; Platelet Count 232 10^3/cmm (157-399); Red Blood Count 3.95 10^6/uL (3.85-5.65); Red Cell Distribution Width 13.7 % (12.1-15.1); White Blood Count 8.05 10^3/uL (3.29-11.43)
[2024-05-19 23:35] VITALS: BP 116/94; PULSE 71; RESP 16; O2SAT 96
[2024-05-19] MEDS: HYDROmorphone 1 mg/mL INJ 1 mL IVP (23:40)
[2024-05-19 23:54] LABS: Alanine Aminotransferase 18 U/L (0-33); Alkaline Phosphatase 127 U/L (35-105); Anion Gap 16.1 (5-19); Aspartate Amino Transferase 16 U/L (0-32); Blood Urea Nitrogen 18 mg/dL (6-20); Calcium 9.2 mg/dL (8.5-10.5); Carbon Dioxide 23 mmol/L (22-29); Chloride 104 mmol/L (98-107); Globulin 2.6 g/dL (1.3-4.6); Glomerular Filtration Rate 64.8 mL/min (90-130); Glucose 100 mg/dL (65-115); Lipase 28 U/L (13-60); Osmolality Calculated 290 mOsm/kg (285-295); Potassium 4.1 mmol/L (3.5-5.1); Sodium 139 mmol/L (136-145); Total Bilirubin 0.2 mg/dL (0.15-1.2); Total Protein 6.6 g/dL (6.6-8.7)
== END 2024-05-20 00:42 | disposition home or self-care (01) ==
PROVIDERS: Emergency Provider Physician Assistant; PCP Registered Nurse
DX: R10.13 Epigastric pain (principal); F17.210 Nicotine dependence, cigarettes, uncomplicated; J44.9 Chronic obstructive pulmonary disease, unspecified
CPT/HCPCS: 36415; 74018; 80053; 83690; 85025; 96374; 99284; J1171

== ENCOUNTER 2024-05-20 03:54 | Emergency (ER) | payer MEDICARE, MEDICAID, SELFPAY ==
[2024-05-20 03:54] VITALS: BP 113/78; PULSE 95; RESP 26; TEMP 36.8; O2SAT 100; BMI 26.2
--- NOTE | 2024-05-20 05:07 | ED_ITS ---
HPI - Abdominal Pain General: Chief Complaint: Abdominal Pain Stated Complaint: abd pain n/v Time Seen by Provider: 05/20/24 04:03 History of Present Illness: 58-year-old female [facility] She presents with abdominal pain. She was here for the same complaint last night, given pain medication and antiemetic, and her pain had resolved. She states that while in the waiting room, waiting on a ride, she began to feel nauseated. She went to the bathroom and had 2 bowel movements followed by 4-5 episodes of vomiting. She checked back in with the same periumbilical abdominal pain. She had an EGD last week, that is supposed to be able to get her results later today. Related Data Home Medications Medication Instructions Recorded Confirmed acetaminophen 500 mg tablet 1,000 mg PO Q6H PRN Pain 07/09/21 05/10/24 pantoprazole 40 mg tablet,delayed 40 mg PO BID 07/27/23 05/10/24 release promethazine 25 mg rectal 25 mg TN Q6H PRN 07/27/23 05/10/24 suppository ondansetron HCl 4 mg tablet 4 mg PO Q8H 01/22/24 05/10/24 oxycodone 5 mg tablet 2.5 mg PO BID PRN 03/26/24 05/10/24 dicyclomine 10 mg capsule mg PO 05/10/24 05/10/24 erythromycin 250 mg tablet PO 05/10/24 05/10/24 lubiprostone 8 mcg capsule mcg PO 05/10/24 05/10/24 prednisolone acetate 1 % eye drp ophthalmic (eye) 05/10/24 05/10/24 drops,suspension Previous Rx's Medication Instructions Recorded nystatin 100,000 unit/gram topical 1 applic topical BID #30 grams 06/16/22 powder ondansetron 4 mg disintegrating 4 mg PO Q6H PRN nausea and 11/21/23 tablet vomiting #14 tabs SOLE Supports #1 ea 01/01/24 lamotrigine 200 mg tablet 200 mg PO DAILY@06 #30 tabs 03/26/24 quetiapine 50 mg tablet 50 mg PO BID #60 tabs 03/26/24 vortioxetine 20 mg tablet 20 mg PO .q am #30 tabs 10/08/24 (Trintellix) trazodone 300 mg tablet 300 mg PO .q hs PRN sleep #30 tabs 04/15/24 quetiapine 25 mg tablet 25 mg PO BID PRN agitation #60 tabs 04/22/24 fluticasone propionate 50 1 spray intranasal DAILY PRN nasal 05/10/24 mcg/actuation nasal congestion 30 days #16 grams spray,suspension (Flonase Allergy Relief) albuterol sulfate 90 mcg/actuation See Rx Instructions .Route 05/13/24 aerosol inhaler .COMPLEX #8.5 grams Allergies Allergy/AdvReac Type Severity Reaction Status Date / Time haloperidol [From Haldol] Allergy Severe unknown Verified 05/10/24 10:20 Penicillins Allergy Severe ALGY-Anaphy Verified 05/10/24 10:20 laxis sulfamethoxazole Allergy Severe ALGY-Hives Verified 05/10/24 10:20 [From Bactrim] Tetracyclines Allergy Severe ALGY-Hives Verified 05/10/24 10:20 gabapentin [From Neurontin] Allergy Intermediate ADR-Halluci Verified 05/10/24 10:20 nating ketorolac [From Toradol] Allergy Intermediate ALGY-Rash Verified 05/10/24 10:20 lithium Allergy Intermediate ADR-Halluci Verified 05/10/24 10:20 nating fentanyl Allergy Mild rash Verified 05/10/24 10:20 adhesive tape Allergy Rash Verified 05/10/24 10:20 codeine Allergy GI Verified 05/10/24 10:20 duloxetine [From Cymbalta] Allergy ALGY-Rash Verified 05/10/24 10:20 fluoxetine Allergy ADR-Migrain Verified 05/10/24 10:20 e metoclopramide [From Reglan] Allergy ADR-Shakine Verified 05/10/24 10:20 ss nitroglycerin Allergy ADV-Weaknes Verified 05/10/24 10:20 s tramadol Allergy Unknown Verified 05/10/24 10:20 trimethoprim [From Bactrim] Allergy ALGY-Hives Verified 05/10/24 10:20 ziprasidone [From Geodon] AdvReac Severe ADR-Halluci Verified 05/10/24 10:20 nating risperidone [From Risperdal] AdvReac ADR-Halluci Verified 05/10/24 10:20 nating [facility] ED PFSH: Medical History Insomnia Tobacco use disorder Opioid dependence, uncomplicated Cannabis dependence, uncomplicated Psychiatric care Tardive dyskinesia Esophageal stricture Cystitis cystica Chronic gastritis without bleeding Restrictive lung disease Chronic back pain greater than 3 months duration Borderline personality disorder Schizoaffective disorder, bipolar type Urgency incontinence Neurogenic bladder Dysphagia COPD (chronic obstructive pulmonary disease) GERD without esophagitis Foreign body in bladder Bladder stone Chronic anxiety Surgical History H/O bladder repair surgery MESH REPAIR H/O esophagogastroduodenoscopy (09/21/20) H/O colonoscopy with polypectomy History of foot surgery sx in 2009. Screws placed by Dr. Don. S/P bronchoscopy with biopsy History of ureter stent History of breast biopsy Hx of cholecystectomy H/O: hysterectomy History of appendectomy Family History Mother No problems noted. Father No problems noted. Other Asthma Cancer Diabetes Heart disease Social History Smoking and tobacco/nicotine status: current every day tobacco/nicotine user cigarettes Packs smoked per day: 1 Years cigarettes smoked: 20 [ Other cigarette details: Hx of 1 PPD x 20 Years, started at age 27] Quit status (tobacco/nicotine): considering quitting Second hand smoke exposure: Yes Alcohol intake: never Substance/Drug Use: former Lives independently: Yes Household members: spouse Marital status: Number of children: 3 Current occupational status: disabled Do you think of yourself as: Straight/Heterosexual Current gender identity: Female Physical Exam Const: COMMON NORMALS: no acute distress GENERAL APPEARANCE: cooperative; not ill appearing and not frail appearing HENMT: COMMON NORMALS: normocephalic, atraumatic and Normal external nose present HEAD & SCALP: normocephalic and atraumatic FACE & SINUS: normal facial exam and face symmetric NOSE: Normal external nose present Eye: COMMON NORMALS: Equal, round and reactive pupils present and EOMs intact bilaterally PUPIL: Yes Equal, round and reactive pupils present Neck/C-Spine: GENERAL: Yes trachea midline Chest: CHEST: Yes Symmetrical chest wall rise Resp: COMMON NORMALS: normal respiratory effort, No retractions, No use of accessory muscles and clear to auscultation bilaterally AUSCULTATION: clear to auscultation bilaterally Cardio: COMMON NORMALS: regular rate and regular rhythm RATE: regular rate RHYTHM: regular rhythm GI: COMMON NORMALS: Normal to inspection, nondistended, normoactive bowel sounds present PALPATION: Yes Tenderness to palpation present (GI) (epigastric) Extremity: COMMON NORMALS: no pedal edema Neuro: JEANINE COMA SCALE: document GCS findings Jeanine coma scale eye opening: Spontaneous Jeanine coma scale verbal response: Orientated [place] coma scale motor response: Obey commands [place] coma scale total score: 15 SENSORY EXAM: Yes extremities (intact) Psych: COMMON NORMALS: speech normal SPEECH: Yes normal speech Skin: COMMON NORMALS: no rashes or lesions noted GENERAL SKIN EXAM: no rashes or lesions noted Course Vital Signs: Vital signs: Vital Signs Temperature 98.2 F 05/20/24 03:54 Pulse Rate 67 05/20/24 06:07 Respiratory Rate 26 H 05/20/24 03:54 Blood Pressure 148/83 05/20/24 06:07 Pulse Oximetry 97 05/20/24 06:07 Oxygen Delivery Me thod Room Air 05/20/24 03:54 MDM - Abdominal Pain Medical Decision Making This is a 58-year-old female with chronic abdominal pain. She was seen last n [facility] for the same complaint. She Leyla presented to the emergency department after pain came back. She states that she vomited several times in the waiting room, which is uncommon story for her. Her vitals are stable. She is afebrile. She has tenderness. No other objective findings. She is given an injection of pain medication and antiemetic, and will be discharged. No radiology studies performed this visit Discharge Plan Discharge Patient Disposition: Home Clinical Impression: Abdominal pain Qualifiers: Abdominal location: epigastric Qualified Code(s): R10.13 - Epigastric pain Condition: Stable Prescriptions: No Action promethazine 25 mg suppository 25 mg TN Q6H PRN pantoprazole 40 mg tablet,delayed release (DR/EC) 40 mg PO BID (DME) SOLE Supports See Rx Instructions .Route .MEDSUPPLY Qty: 1 0RF Rx Instructions: As directed PRE-Auth oxycodone 5 mg tablet 2.5 mg PO BID PRN lamotrigine 200 mg tablet 200 mg PO DAILY@06 Qty: 30 1RF Rx Instructions: Take one tablet by mouth every morning quetiapine 50 mg tablet 50 mg PO BID Qty: 60 1RF Rx Instructions: Take one tablet by mouth every morning and at bedtime Trintellix 20 mg tablet 20 mg PO .q am Qty: 30 1RF Rx Instructions: Take one tablet once daily erythromycin 250 mg tablet PO prednisolone acetate 1 % drops,suspension ophthalmic (eye) dicyclomine 10 mg capsule PO lubiprostone 8 mcg capsule PO fluticasone propionate [Flonase Allergy Relief] 50 mcg/actuation spray,suspension 1 spray intranasal DAILY PRN (Reason: nasal congestion) 30 Days Qty: 16 2RF Rx Instructions: administer into each nostril ondansetron HCl 4 mg tablet 4 mg PO Q8H nystatin 100,000 unit/gram powder 1 applic topical BID Qty: 30 0RF Rx Instructions: apply locally to B/L groin folds trazodone 300 mg tablet 300 mg PO .q hs PRN (Reason: sleep) Qty: 30 1RF Rx Instructions: Take one tablet daily at bedtime, if needed for sleep quetiapine 25 mg tablet 25 mg PO BID PRN (Reason: agitation) Qty: 60 0RF Rx Instructions: Take one tablet up to twice a day, if needed, for agitation albuterol sulfate 90 mcg/actuation HFA aerosol inhaler See Rx Instructions .ROUTE .COMPLEX Qty: 8.5 0RF Dose Instruction: INHALE 2 PUFFS BY MOUTH EVERY 6 HOURS NEEDED FOR SHORTNESS OF BREATH OR WHEEZING Rx Instructions: INHALE 2 PUFFS BY MOUTH EVERY 6 HOURS NEEDED FOR SHORTNESS OF BREATH OR WHEEZING acetaminophen 500 mg Tablet 1,000 mg PO Q6H PRN (Reason: Pain) ondansetron 4 mg tablet,disintegrating 4 mg PO Q6H PRN (Reason: nausea and vomiting) Qty: 14 0RF Discharge Orders: Discharge ED (Routine); Ordered 05/20/24 Ordered By: Chivo Deleon Referrals: Dara Tavera FNP [Primary Care Provider] - 1-3 days Patient Instructions: Abdominal Pain (ED), Chronic Abdominal Pain (DC), Opioid Safety, Pain Management Activity Restrictions/Additional Instructions: Call your doctor later this morning for results of your test. Return for fever or other symptoms Coding Level of Care Code ED Director [employer] for Shellie Guallpa
[2024-05-20] MEDS: HYDROmorphone 1 mg/mL INJ 1 mL IM (05:29)
[2024-05-20] MEDS: ondansetron 2 mg/ML SDV 2 mL 4 MG IM (05:29)
[2024-05-20 06:07] VITALS: BP 148/83; PULSE 67; O2SAT 97
== END 2024-05-20 06:07 | disposition home or self-care (01) ==
PROVIDERS: Emergency Provider Emergency Medicine; PCP Registered Nurse
DX: R10.13 Epigastric pain (principal); F17.210 Nicotine dependence, cigarettes, uncomplicated; J44.9 Chronic obstructive pulmonary disease, unspecified
CPT/HCPCS: 96372; 99284; J1171; J2405

== ENCOUNTER 2024-05-30 23:19 | Emergency (ER) | payer MEDICARE, MEDICAID, SELFPAY ==
[2024-05-30 23:33] VITALS: BP 113/66; PULSE 68; RESP 20; TEMP 36.3; O2SAT 97
[2024-05-31 00:47] LABS: Basophils # 0.1 10^3/uL (0.0-0.1); Basophils % 0.7 %; Eosinophils # 0.3 10^3/uL (0.0-0.8); Eosinophils % 2.5 %; Hematocrit 39.3 % (36-47); Lymphocytes # 2.9 10^3/uL (0.8-4.8); Lymphocytes % 24.7 %; Mean Corpuscular HGB Conc 33.3 g/dL (30-55); Mean Corpuscular Hemoglobin 33.4 pg (27-33); Mean Corpuscular Volume 100.3 fl (85-98); Mean Platelet Volume 9.6 fL (7.4-10.4); Monocytes # 0.9 10^3/uL (0.2-0.9); Monocytes % 7.6 %; Neutrophils # 7.47 10^3/uL (1.8-7.7); Neutrophils % 64.2 %; Nucleated Red Blood Cells % 0 %; Platelet Count 207 10^3/cmm (157-399); Red Blood Count 3.92 10^6/uL (3.85-5.65); Red Cell Distribution Width 13.9 % (12.1-15.1); White Blood Count 11.64 10^3/uL (3.29-11.43)
--- NOTE | 2024-05-31 01:05 | ED_ITS ---
HPI - Abdominal Pain 2 General: Chief Complaint: Abdominal Pain Stated Complaint: Abd pain Time Seen by Provider: 05/31/24 00:47 History of Present Illness: Presents to the ER with complaints of abdominal pain cramping epigastric pain nausea vomiting started around 7 PM tonight. Patient was brought in by ambulance and was noted to earlier tonight they transported her to [place] with . She did not like was there so she left without being seen call them again. Patient has a history of gastroparesis and hyper cannabinol emesis syndrome patient is on multiple medications including dicyclomine, Zofran, Protonix, Carafate, patient says she has been taking these medicines. Patient has an appointment with her doctor to talk about her chronic abdominal pain which this is is not until the first week in June. Related Data Home Medications Medication Instructions Recorded Confirmed acetaminophen 500 mg tablet 1,000 mg PO Q6H PRN Pain 07/09/21 05/29/24 pantoprazole 40 mg tablet,delayed 40 mg PO BID 07/27/23 05/29/24 release promethazine 25 mg rectal 25 mg OK Q6H PRN 07/27/23 05/29/24 suppository ondansetron HCl 4 mg tablet 4 mg PO Q8H 01/22/24 05/29/24 lubiprostone 8 mcg capsule mcg PO 05/10/24 05/29/24 prednisolone acetate 1 % eye drp ophthalmic (eye) 05/10/24 05/29/24 drops,suspension dicyclomine 10 mg capsule 10 mg PO BID PRN 05/27/24 05/29/24 polyethylene glycol 3350 17 4 g PO DAILY 05/27/24 05/29/24 gram/dose oral powder (Miralax) sucralfate 1 gram tablet (Carafate) 1 g PO QID 05/27/24 05/29/24 Previous Rx's Medication Instructions Recorded nystatin 100,000 unit/gram topical 1 applic topical BID #30 grams 06/16/22 powder SOLE Supports #1 ea 01/01/24 fluticasone propionate 50 1 spray intranasal DAILY PRN nasal 05/10/24 mcg/actuation nasal congestion 30 days #16 grams spray,suspension (Flonase Allergy Relief) albuterol sulfate 90 mcg/actuation See Rx Instructions .Route 05/13/24 aerosol inhaler .COMPLEX #8.5 grams lamotrigine 200 mg tablet 200 mg PO DAILY@06 #30 tabs 05/27/24 quetiapine 25 mg tablet 25 mg PO BID PRN agitation #60 tabs 05/27/24 quetiapine 50 mg tablet 50 mg PO BID #60 tabs 05/27/24 trazodone 300 mg tablet 300 mg PO .q hs PRN sleep #30 tabs 05/27/24 vortioxetine 20 mg tablet 20 mg PO .q am #30 tabs 05/27/24 (Trintellix) Allergies Allergy/AdvReac Type Severity Reaction Status Date / Time haloperidol [From Haldol] Allergy Severe unknown Verified 05/29/24 09:40 Penicillins Allergy Severe ALGY-Anaphy Verified 05/29/24 09:40 laxis sulfamethoxazole Allergy Severe ALGY-Hives Verified 05/29/24 09:40 [From Bactrim] Tetracyclines Allergy Severe ALGY-Hives Verified 05/29/24 09:40 gabapentin [From Neurontin] Allergy Intermediate ADR-Halluci Verified 05/29/24 09:40 nating ketorolac [From Toradol] Allergy Intermediate ALGY-Rash Verified 05/29/24 09:40 lithium Allergy Intermediate ADR-Halluci Verified 05/29/24 09:40 nating fentanyl Allergy Mild rash Verified 05/29/24 09:40 adhesive tape Allergy Rash Verified 05/29/24 09:40 codeine Allergy GI Verified 05/29/24 09:40 duloxetine [From Cymbalta] Allergy ALGY-Rash Verified 05/29/24 09:40 fluoxetine Allergy ADR-Migrain Verified 05/29/24 09:40 e metoclopramide [From Reglan] Allergy ADR-Shakine Verified 05/29/24 09:40 ss nitroglycerin Allergy ADV-Weaknes Verified 05/29/24 09:40 s tramadol Allergy Unknown Verified 05/29/24 09:40 trimethoprim [From Bactrim] Allergy ALGY-Hives Verified 05/29/24 09:40 ziprasidone [From Geodon] AdvReac Severe ADR-Halluci Verified 05/29/24 09:40 nating risperidone [From Risperdal] AdvReac ADR-Halluci Verified 05/29/24 09:40 nating Review of Systems 2 General: Reports: 10 or more systems reviewed and unremarkable except in HPI and below PFSH ED 2 PFSH: Medical History Insomnia Tobacco use disorder Opioid dependence, uncomplicated Cannabis dependence, uncomplicated Psychiatric care Tardive dyskinesia Esophageal stricture Cystitis cystica Chronic gastritis without bleeding Restrictive lung disease Chronic back pain greater than 3 months duration Borderline personality disorder Schizoaffective disorder, bipolar type Urgency incontinence Neurogenic bladder Dysphagia COPD (chronic obstructive pulmonary disease) GERD without esophagitis Foreign body in bladder Bladder stone Chronic anxiety Surgical History H/O bladder repair surgery MESH REPAIR H/O esophagogastroduodenoscopy (09/21/20) H/O colonoscopy with polypectomy History of foot surgery sx in 2009. Screws placed by Dr. Don. S/P bronchoscopy with biopsy History of ureter stent History of breast biopsy Hx of cholecystectomy H/O: hysterectomy History of appendectomy Family History Mother No problems noted. Father No problems noted. Other Asthma Cancer Diabetes Heart disease Social History Smoking and tobacco/nicotine status: current every day tobacco/nicotine user cigarettes Packs smoked per day: 1 Years cigarettes smoked: 20 [ Other cigarette details: Hx of 1 PPD x 20 Years, started at age 27] Quit status (tobacco/nicotine): considering quitting Second hand smoke exposure: Yes Alcohol intake: never Substance/Drug Use: former Lives independently: Yes Household members: spouse Marital status: Number of children: 3 Current occupational status: disabled Do you think of yourself as: Straight/Heterosexual Current gender identity: Female Physical Exam 2 Const: COMMON NORMALS: no acute distress, average body habitus, patient oriented x3, no limitations, healthy appearing, alert and well nourished HENMT: COMMON NORMALS: normocephalic, atraumatic, hearing grossly normal bilaterally, external ears normal, Normal external nose present and moist oral mucous membranes HEAD & SCALP: normocephalic and atraumatic NOSE: Normal external nose present EXTERNAL EAR: Yes external ears normal Neck/C-Spine: COMMON NORMALS: no JVD Chest: COMMONS NORMALS: normal inspection of the chest and normal palpation of entire chest wall Resp: COMMON NORMALS: normal respiratory effort, No retractions, No use of accessory muscles and clear to auscultation bilaterally AUSCULTATION: clear to auscultation bilaterally Cardio: COMMON NORMALS: no JVD, regular rate, regular rhythm, S1 normal heart sound present, S2 normal heart sound present, No gallops present (Cardio), No clicks present (Cardio) and No murmurs present (Cardio) RATE: regular rate RHYTHM: regular rhythm HEART SOUNDS: S1 normal heart sound present and S2 normal heart sound present GI: COMMON NORMALS: Normal to inspection, nondistended, normoactive bowel sounds present, Soft to palpation, non-tender, No hepatosplenomegaly present and no masses PALPATION: Yes Soft to palpation and Yes No hepatosplenomegaly present Neuro: COMMON NORMALS: patient oriented x3 SENSORIUM/ORIENTATION: Yes alert Course 2 Vital Signs: Vital signs: Vital Signs Temperature 97.4 F L 05/30/24 23:33 Pulse Rate 68 05/30/24 23:33 Respiratory Rate 20 H 05/30/24 23:33 Blood Pressure 113/66 05/30/24 23:33 Pulse Oximetry 97 05/30/24 23:33 MDM - Abdominal Pain Medical Decision Making Awaiting for lab work come back patient said for nothing give her pain medicine she only. Before she left we did get the blood work back and blood work is essentially all unremarkable, so patient will be discharged. Medical Records I reviewed the patient's medical records. Lab Data I reviewed the patient's lab results. 05/31/24 00:23 05/31/24 00:23 Labs/Radiology: Laboratory Results WBC 11.64 10^3/uL (3.29-11.43) H 05/31/24 00:23 RBC 3.92 10^6/uL (3.85-5.65) 05/31/24 00:23 Hgb 13.10 g/dL (11.27-16.99) 05/31/24 00:23 Hct 39.3 % (36-47) 05/31/24 00:23 MCV 100.3 fl (85-98) H 05/31/24 00:23 MCH 33.4 pg (27-33) H 05/31/24 00:23 MCHC 33.3 g/dL (30-55) 05/31/24 00:23 RDW 13.9 % (12.1-15.1) 05/31/24 00:23 Plt Count 207 10^3/cmm (157-399) 05/31/24 00:23 MPV 9.6 fL (7.4-10.4) 05/31/24 00:23 Neut % (Auto) 64.2 % 05/31/24 00:23 Lymph % (Auto) 24.7 % 05/31/24 00:23 Butler % (Auto) 7.6 % 05/31/24 00:23 Eos % (Auto) 2.5 % 05/31/24 00:23 Baso % (Auto) 0.7 % 05/31/24 00:23 Neut # (Auto) 7.47 10^3/uL (1.8-7.7) 05/31/24 00:23 Lymph # (Auto) 2.9 10^3/uL (0.8-4.8) 05/31/24 00:23 Butler # (Auto) 0.9 10^3/uL (0.2-0.9) 05/31/24 00:23 Eos # (Auto) 0.3 10^3/uL (0.0-0.8) 05/31/24 00:23 Baso # (Auto) 0.1 10^3/uL (0.0-0.1) 05/31/24 00:23 Nucleated RBC % (auto) 0 % 05/31/24 00:23 Nucleated RBCs # 0.0 /100WBC 05/31/24 00:23 Sodium 137 mmol/L (136-145) 05/31/24 00:23 Potassium 4.3 mmol/L (3.5-5.1) 05/31/24 00:23 Chloride 102 mmol/L (98-107) 05/31/24 00:23 Carbon Dioxide 25 mmol/L (22-29) 05/31/24 00:23 Anion Gap 14.3 (5-19) 05/31/24 00:23 BUN 18 mg/dL (6-20) 05/31/24 00:23 Creatinine 1.0 mg/dL (0.5-0.9) H 05/31/24 00:23 GFR Calculation 57.4 mL/min (90-130) L 05/31/24 00:23 Glucose 98 mg/dL (65-115) 05/31/24 00:23 Calculated Osmolality 286 mOsm/kg (285-295) 05/31/24 00:23 Calcium 9.3 mg/dL (8.5-10.5) 05/31/24 00:23 Total Bilirubin 0.2 mg/dL (0.15-1.2) 05/31/24 00:23 AST 18 U/L (0-32) 05/31/24 00:23 ALT 18 U/L (0-33) 05/31/24 00:23 Alkaline Phosphatase 118 U/L (35-105) H 05/31/24 00:23 Total Protein 6.8 g/dL (6.6-8.7) 05/31/24 00:23 Albumin 4.0 g/dL (3.5-5.2) 05/31/24 00:23 Globulin 2.8 g/dL (1.3-4.6) 05/31/24 00:23 Lipase 24 U/L (13-60) 05/31/24 00:23 All radiology interpretation(s) finalized by discharge Discharge Plan Discharge Patient Disposition: Home Clinical Impression: Abdominal pain Qualifiers: Abdominal location: unspecified location Qualified Code(s): R10.9 - Unspecified abdominal pain Nausea & vomiting Qualifiers: Vomiting type: unspecified Qualified Code(s): R11.2 - Nausea with vomiting, unspecified Condition: Stable Prescriptions: No Action promethazine 25 mg suppository 25 mg OK Q6H PRN pantoprazole 40 mg tablet,delayed release (DR/EC) 40 mg PO BID (DME) SOLE Supports See Rx Instructions .Route .MEDSUPPLY Qty: 1 0RF Rx Instructions: As directed PRE-Auth prednisolone acetate 1 % drops,suspension ophthalmic (eye) lubiprostone 8 mcg capsule PO fluticasone propionate [Flonase Allergy Relief] 50 mcg/actuation spray,suspension 1 spray intranasal DAILY PRN (Reason: nasal congestion) 30 Days Qty: 16 2RF Rx Instructions: administer into each nostril dicyclomine 10 mg capsule 10 mg PO BID PRN ondansetron HCl 4 mg tablet 4 mg PO Q8H sucralfate [Carafate] 1 gram tablet 1 g PO QID polyethylene glycol 3350 [Miralax] 17 gram/dose powder 4 g PO DAILY lamotrigine 200 mg tablet 200 mg PO DAILY@06 Qty: 30 2RF Rx Instructions: Take one tablet by mouth every morning quetiapine 50 mg tablet 50 mg PO BID Qty: 60 2RF Rx Instructions: Take one tablet by mouth every morning and at bedtime quetiapine 25 mg tablet 25 mg PO BID PRN (Reason: agitation) Qty: 60 2RF Rx Instructions: Take one tablet up to twice a day, if needed, for agitation trazodone 300 mg tablet 300 mg PO .q hs PRN (Reason: sleep) Qty: 30 2RF Rx Instructions: Take one tablet daily at bedtime, if needed for sleep Trintellix 20 mg tablet 20 mg PO .q am Qty: 30 2RF Rx Instructions: Take one tablet once daily nystatin 100,000 unit/gram powder 1 applic topical BID Qty: 30 0RF Rx Instructions: apply locally to B/L groin folds albuterol sulfate 90 mcg/actuation HFA aerosol inhaler See Rx Instructions .ROUTE .COMPLEX Qty: 8.5 0RF Dose Instruction: INHALE 2 PUFFS BY MOUTH EVERY 6 HOURS NEEDED FOR SHORTNESS OF BREATH OR WHEEZING Rx Instructions: INHALE 2 PUFFS BY MOUTH EVERY 6 HOURS NEEDED FOR SHORTNESS OF BREATH OR WHEEZING acetaminophen 500 mg Tablet 1,000 mg PO Q6H PRN (Reason: Pain) Discharge Orders: Discharge ED (Routine); Ordered 05/31/24 Ordered By: Colby Fisher Referrals: Dara Tavera FNP [Primary Care Provider] - 1 week Patient Instructions: Abdominal Pain (ED) Activity Restrictions/Additional Instructions: Thank you for choosing [facility] for your healthcare needs today. Please realize that you were seen in the emergency department and that we are providing you with an emergency medical screening exam and this may not be a complete and all exclusive of all testing and/or medical workup we may need to determine your element or severity of your illness. It is very important that you follow-up as instructed with your primary care provider or specialist for the additional evaluation and to discuss your medical treatment plan. You may return to the emergency department should you have concerns or if your condition changes or worsens in any way. Coding Level of Care Code ED [facility] for Shellie Guallpa
[2024-05-31 01:07] LABS: Alanine Aminotransferase 18 U/L (0-33); Alkaline Phosphatase 118 U/L (35-105); Anion Gap 14.3 (5-19); Aspartate Amino Transferase 18 U/L (0-32); Blood Urea Nitrogen 18 mg/dL (6-20); Calcium 9.3 mg/dL (8.5-10.5); Carbon Dioxide 25 mmol/L (22-29); Chloride 102 mmol/L (98-107); Creatinine Clr Calc Pharmacy 58.1668; Globulin 2.8 g/dL (1.3-4.6); Glomerular Filtration Rate 57.4 mL/min (90-130); Glucose 98 mg/dL (65-115); Lipase 24 U/L (13-60); Osmolality Calculated 286 mOsm/kg (285-295); Potassium 4.3 mmol/L (3.5-5.1); Sodium 137 mmol/L (136-145); Total Bilirubin 0.2 mg/dL (0.15-1.2); Total Protein 6.8 g/dL (6.6-8.7)
[2024-05-31] MEDS: LORazepam 2 mg/mL INJ 1 mL IVP (02:05)
[2024-05-31] MEDS: diphenhydrAMINE 50 mg/mL SDV 1mL IVP (02:05)
== END 2024-05-31 03:57 | disposition home or self-care (01) ==
PROVIDERS: Physician Assistant; Emergency Provider Emergency Medicine; PCP Registered Nurse
DX: R10.9 Unspecified abdominal pain (principal); R11.2 Nausea with vomiting, unspecified; F17.210 Nicotine dependence, cigarettes, uncomplicated; J44.9 Chronic obstructive pulmonary disease, unspecified
CPT/HCPCS: 36415; 80053; 83690; 85025; 96374; 96375; 99284; J1200; J2060

== ENCOUNTER 2024-05-31 06:42 | Emergency (ER) | payer MEDICARE, MEDICAID, SELFPAY ==
[2024-05-31 06:50] VITALS: BP 131/93; PULSE 92; RESP 17; TEMP 36.5; O2SAT 98; BMI 27.4
--- NOTE | 2024-05-31 06:57 | W.ED.ABDPA2 ---
HPI - Abdominal Pain General: Chief Complaint: Abdominal Pain Stated Complaint: severe pain, meds not working Time Seen by Provider: 05/31/24 06:47 Source: patient Mode of arrival: ambulatory Limitations: no limitations History of Present Illness: 58-year-old female is very well-known to the ER has a history of chronic abdominal pain states she has been having pain in the last few days she is seen overnight here states that the Ativan did not work for her pain she denies any fever denies any vomiting denies any diarrhea. Associated Symptoms: Denies chills, diarrhea, dysuria, fever(s), nausea and vomiting Related Data Home Medications Medication Instructions Recorded Confirmed acetaminophen 500 mg tablet 1,000 mg PO Q6H PRN Pain 07/09/21 05/29/24 pantoprazole 40 mg tablet,delayed 40 mg PO BID 07/27/23 05/29/24 release promethazine 25 mg rectal 25 mg AL Q6H PRN 07/27/23 05/29/24 suppository ondansetron HCl 4 mg tablet 4 mg PO Q8H 01/22/24 05/29/24 lubiprostone 8 mcg capsule mcg PO 05/10/24 05/29/24 prednisolone acetate 1 % eye drp ophthalmic (eye) 05/10/24 05/29/24 drops,suspension dicyclomine 10 mg capsule 10 mg PO BID PRN 05/27/24 05/29/24 polyethylene glycol 3350 17 4 g PO DAILY 05/27/24 05/29/24 gram/dose oral powder (Miralax) sucralfate 1 gram tablet (Carafate) 1 g PO QID 05/27/24 05/29/24 Previous Rx's Medication Instructions Recorded nystatin 100,000 unit/gram topical 1 applic topical BID #30 grams 06/16/22 powder SOLE Supports #1 ea 01/01/24 fluticasone propionate 50 1 spray intranasal DAILY PRN nasal 05/10/24 mcg/actuation nasal congestion 30 days #16 grams spray,suspension (Flonase Allergy Relief) albuterol sulfate 90 mcg/actuation See Rx Instructions .Route 05/13/24 aerosol inhaler .COMPLEX #8.5 grams lamotrigine 200 mg tablet 200 mg PO DAILY@06 #30 tabs 05/27/24 quetiapine 25 mg tablet 25 mg PO BID PRN agitation #60 tabs 05/27/24 quetiapine 50 mg tablet 50 mg PO BID #60 tabs 05/27/24 trazodone 300 mg tablet 300 mg PO .q hs PRN sleep #30 tabs 05/27/24 vortioxetine 20 mg tablet 20 mg PO .q am #30 tabs 05/27/24 (Trintellix) Allergies Allergy/AdvReac Type Severity Reaction Status Date / Time haloperidol [From Haldol] Allergy Severe unknown Verified 05/29/24 09:40 Penicillins Allergy Severe ALGY-Anaphy Verified 05/29/24 09:40 laxis sulfamethoxazole Allergy Severe ALGY-Hives Verified 05/29/24 09:40 [From Bactrim] Tetracyclines Allergy Severe ALGY-Hives Verified 05/29/24 09:40 gabapentin [From Neurontin] Allergy Intermediate ADR-Halluci Verified 05/29/24 09:40 nating ketorolac [From Toradol] Allergy Intermediate ALGY-Rash Verified 05/29/24 09:40 lithium Allergy Intermediate ADR-Halluci Verified 05/29/24 09:40 nating fentanyl Allergy Mild rash Verified 05/29/24 09:40 adhesive tape Allergy Rash Verified 05/29/24 09:40 codeine Allergy GI Verified 05/29/24 09:40 duloxetine [From Cymbalta] Allergy ALGY-Rash Verified 05/29/24 09:40 fluoxetine Allergy ADR-Migrain Verified 05/29/24 09:40 e metoclopramide [From Reglan] Allergy ADR-Shakine Verified 05/29/24 09:40 ss nitroglycerin Allergy ADV-Weaknes Verified 05/29/24 09:40 s tramadol Allergy Unknown Verified 05/29/24 09:40 trimethoprim [From Bactrim] Allergy ALGY-Hives Verified 05/29/24 09:40 ziprasidone [From Geodon] AdvReac Severe ADR-Halluci Verified 05/29/24 09:40 nating risperidone [From Risperdal] AdvReac ADR-Halluci Verified 05/29/24 09:40 nating Review of Systems Const: Denies: fever(s), chills, body aches or change in appetite ENMT: Denies: throat pain or dental pain Card: Denies: chest pain Resp: Denies: dyspnea GI: Reports: abdominal pain; Denies: nausea, vomiting or diarrhea : Denies: dysuria Musc: Denies: neck pain or back pain Skin/Breast: Denies: rash Neuro: Denies: headache(s) PFSH ED PFSH: Medical History Insomnia Tobacco use disorder Opioid dependence, uncomplicated Cannabis dependence, uncomplicated Psychiatric care Tardive dyskinesia Esophageal stricture Cystitis cystica Chronic gastritis without bleeding Restrictive lung disease Chronic back pain greater than 3 months duration Borderline personality disorder Schizoaffective disorder, bipolar type Urgency incontinence Neurogenic bladder Dysphagia COPD (chronic obstructive pulmonary disease) GERD without esophagitis Foreign body in bladder Bladder stone Chronic anxiety Surgical History H/O bladder repair surgery MESH REPAIR H/O esophagogastroduodenoscopy (09/21/20) H/O colonoscopy with polypectomy History of foot surgery sx in 2009. Screws placed by Dr. Don. S/P bronchoscopy with biopsy History of ureter stent History of breast biopsy Hx of cholecystectomy H/O: hysterectomy History of appendectomy Family History Mother No problems noted. Father No problems noted. Other Asthma Cancer Diabetes Heart disease Social History Smoking and tobacco/nicotine status: current every day tobacco/nicotine user cigarettes Packs smoked per day: 1 Years cigarettes smoked: 20 [ Other cigarette details: Hx of 1 PPD x 20 Years, started at age 27] Quit status (tobacco/nicotine): considering quitting Second hand smoke exposure: Yes Alcohol intake: never Substance/Drug Use: former Lives independently: Yes Household members: spouse Marital status: Number of children: 3 Current occupational status: disabled Do you think of yourself as: Straight/Heterosexual Current gender identity: Female Physical Exam Const: COMMON NORMALS: no acute distress, patient oriented x3 and healthy appearing HENMT: COMMON NORMALS: normocephalic and atraumatic HEAD & SCALP: normocephalic and atraumatic Eye: COMMON NORMALS: conjunctivae normal CONJUNCTIVA: Yes conjunctivae normal Neck/C-Spine: COMMON NORMALS: full ROM and supple Chest: COMMONS NORMALS: normal inspection of the chest Resp: COMMON NORMALS: normal respiratory effort Cardio: COMMON NORMALS: regular rate RATE: regular rate GI: COMMON NORMALS: Normal to inspection, nondistended, normoactive bowel sounds present, Soft to palpation, non-tender and no masses PALPATION: Yes Soft to palpation Extremity: COMMON NORMALS: normal to inspection and full ROM Neuro: COMMON NORMALS: patient oriented x3, moves all extremities and no focal motor deficits Psych: COMMON NORMALS: mental status grossly normal, Normal thought process present and cooperative THOUGHT PROCESS: Normal thought process present Skin: COMMON NORMALS: no rashes or lesions noted and no wounds GENERAL SKIN EXAM: no rashes or lesions noted Course Vital Signs: Vital signs: Vital Signs Temperature 97.7 F 05/31/24 06:50 Pulse Rate 92 05/31/24 06:50 Respiratory Rate 17 05/31/24 06:50 Blood Pressure 131/93 05/31/24 06:50 Pulse Oximetry 98 05/31/24 06:50 Oxygen Delivery Me thod Room Air 05/31/24 06:50 MDM - Abdominal Pain Medical Decision Making Patient presents for abdominal pain chronic in nature she is well-appearing here she had labs drawn overnight that were normal does not require CT will give her morphine Zofran she stable for discharge Medical Records I reviewed the patient's medical records. No radiology studies performed this visit Discharge Plan Discharge Patient Disposition: Home Clinical Impression: Abdominal pain Condition: Stable Prescriptions: No Action promethazine 25 mg suppository 25 mg AL Q6H PRN pantoprazole 40 mg tablet,delayed release (DR/EC) 40 mg PO BID (DME) SOLE Supports See Rx Instructions .Route .MEDSUPPLY Qty: 1 0RF Rx Instructions: As directed PRE-Auth prednisolone acetate 1 % drops,suspension ophthalmic (eye) lubiprostone 8 mcg capsule PO fluticasone propionate [Flonase Allergy Relief] 50 mcg/actuation spray,suspension 1 spray intranasal DAILY PRN (Reason: nasal congestion) 30 Days Qty: 16 2RF Rx Instructions: administer into each nostril dicyclomine 10 mg capsule 10 mg PO BID PRN ondansetron HCl 4 mg tablet 4 mg PO Q8H sucralfate [Carafate] 1 gram tablet 1 g PO QID polyethylene glycol 3350 [Miralax] 17 gram/dose powder 4 g PO DAILY lamotrigine 200 mg tablet 200 mg PO DAILY@06 Qty: 30 2RF Rx Instructions: Take one tablet by mouth every morning quetiapine 50 mg tablet 50 mg PO BID Qty: 60 2RF Rx Instructions: Take one tablet by mouth every morning and at bedtime quetiapine 25 mg tablet 25 mg PO BID PRN (Reason: agitation) Qty: 60 2RF Rx Instructions: Take one tablet up to twice a day, if needed, for agitation trazodone 300 mg tablet 300 mg PO .q hs PRN (Reason: sleep) Qty: 30 2RF Rx Instructions: Take one tablet daily at bedtime, if needed for sleep Trintellix 20 mg tablet 20 mg PO .q am Qty: 30 2RF Rx Instructions: Take one tablet once daily nystatin 100,000 unit/gram powder 1 applic topical BID Qty: 30 0RF Rx Instructions: apply locally to B/L groin folds albuterol sulfate 90 mcg/actuation HFA aerosol inhaler See Rx Instructions .ROUTE .COMPLEX Qty: 8.5 0RF Dose Instruction: INHALE 2 PUFFS BY MOUTH EVERY 6 HOURS NEEDED FOR SHORTNESS OF BREATH OR WHEEZING Rx Instructions: INHALE 2 PUFFS BY MOUTH EVERY 6 HOURS NEEDED FOR SHORTNESS OF BREATH OR WHEEZING acetaminophen 500 mg Tablet 1,000 mg PO Q6H PRN (Reason: Pain) Discharge Orders: Discharge ED (Routine); Ordered 05/31/24 Ordered By: Damien Urbina Referrals: Dara Tavera, GROUND SERVICES INSTRUCTOR [Primary Care Provider] - Discharge Diet: Advance as tolerated Discharge Activity: Resume usual activity Patient Instructions: Abdominal Pain (ED) Coding Level of Care Code ED Wood Pole Treater for Shellie Guallpa
[2024-05-31 07:10] VITALS: BP 120/56; PULSE 75; RESP 20; O2SAT 97
[2024-05-31] MEDS: ondansetron 2 mg/ML SDV 2 mL 4 MG IM (07:12)
[2024-05-31 07:15] VITALS: RESP 18; O2SAT 97
[2024-05-31] MEDS: morphine 4 mg/mL SDV 1 mL IM (07:15)
[2024-05-31 07:49] VITALS: BP 125/67; PULSE 72; O2SAT 96
== END 2024-05-31 07:49 | disposition home or self-care (01) ==
PROVIDERS: Emergency Provider Emergency Medicine; PCP Registered Nurse
DX: R10.9 Unspecified abdominal pain (principal); F17.210 Nicotine dependence, cigarettes, uncomplicated; J44.9 Chronic obstructive pulmonary disease, unspecified
CPT/HCPCS: 96372; 99284; J2270; J2405

== ENCOUNTER 2024-06-05 18:55 | Emergency (ER) | payer MEDICARE, MEDICAID, SELFPAY ==
[2024-06-05 19:16] VITALS: BP 105/64; PULSE 87; RESP 16; TEMP 36.8; O2SAT 96
[2024-06-05 20:21] LABS: Basophils # 0.1 10^3/uL (0.0-0.1); Basophils % 1.1 %; Eosinophils # 0.3 10^3/uL (0.0-0.8); Eosinophils % 3.6 %; Lymphocytes # 3.4 10^3/uL (0.8-4.8); Lymphocytes % 37.3 %; Mean Corpuscular HGB Conc 33.3 g/dL (30-55); Mean Corpuscular Hemoglobin 33.6 pg (27-33); Mean Platelet Volume 9.5 fL (7.4-10.4); Monocytes # 0.8 10^3/uL (0.2-0.9); Monocytes % 8.3 %; Neutrophils # 4.48 10^3/uL (1.8-7.7); Neutrophils % 49.4 %; Nucleated Red Blood Cells % 0 %; Platelet Count 207 10^3/cmm (157-399); Red Blood Count 3.96 10^6/uL (3.85-5.65); Red Cell Distribution Width 13.5 % (12.1-15.1); White Blood Count 9.08 10^3/uL (3.29-11.43)
[2024-06-05 20:44] LABS: Alanine Aminotransferase 17 U/L (0-33); Albumin Level 4.1 g/dL (3.5-5.2); Alkaline Phosphatase 138 U/L (35-105); Anion Gap 17.1 (5-19); Aspartate Amino Transferase 16 U/L (0-32); Blood Urea Nitrogen 20 mg/dL (6-20); Calcium 9.3 mg/dL (8.5-10.5); Carbon Dioxide 21 mmol/L (22-29); Chloride 104 mmol/L (98-107); Globulin 2.5 g/dL (1.3-4.6); Glomerular Filtration Rate 64.8 mL/min (90-130); Glucose 124 mg/dL (65-115); Lipase 26 U/L (13-60); Osmolality Calculated 290 mOsm/kg (285-295); Potassium 4.1 mmol/L (3.5-5.1); Sodium 138 mmol/L (136-145); Total Bilirubin 0.2 mg/dL (0.15-1.2); Total Protein 6.6 g/dL (6.6-8.7)
--- NOTE | 2024-06-05 21:45 | ED_ITS ---
HPI - Abdominal Pain 2 General: Chief Complaint: Abdominal Pain Stated Complaint: Abd Pain Time Seen by Provider: 06/05/24 21:40 History of Present Illness: 58-year-old female history of chronic ab dominal pain who presents emergency room with abdominal pain. Epigastric in nature similar to previous. She is wanting something for pain. No nausea or vomiting. No fevers. No altered mental status. Related Data Home Medications Medication Instructions Recorded Confirmed acetaminophen 500 mg tablet 1,000 mg PO Q6H PRN Pain 07/09/21 05/29/24 pantoprazole 40 mg tablet,delayed 40 mg PO BID 07/27/23 05/29/24 release promethazine 25 mg rectal 25 mg NM Q6H PRN 07/27/23 05/29/24 suppository ondansetron HCl 4 mg tablet 4 mg PO Q8H 01/22/24 05/29/24 lubiprostone 8 mcg capsule mcg PO 05/10/24 05/29/24 prednisolone acetate 1 % eye drp ophthalmic (eye) 05/10/24 05/29/24 drops,suspension dicyclomine 10 mg capsule 10 mg PO BID PRN 05/27/24 05/29/24 polyethylene glycol 3350 17 4 g PO DAILY 05/27/24 05/29/24 gram/dose oral powder (Miralax) sucralfate 1 gram tablet (Carafate) 1 g PO QID 05/27/24 05/29/24 Previous Rx's Medication Instructions Recorded nystatin 100,000 unit/gram topical 1 applic topical BID #30 grams 06/16/22 powder SOLE Supports #1 ea 01/01/24 fluticasone propionate 50 1 spray intranasal DAILY PRN nasal 05/10/24 mcg/actuation nasal congestion 30 days #16 grams spray,suspension (Flonase Allergy Relief) albuterol sulfate 90 mcg/actuation See Rx Instructions .Route 05/13/24 aerosol inhaler .COMPLEX #8.5 grams lamotrigine 200 mg tablet 200 mg PO DAILY@06 #30 tabs 05/27/24 quetiapine 25 mg tablet 25 mg PO BID PRN agitation #60 tabs 05/27/24 quetiapine 50 mg tablet 50 mg PO BID #60 tabs 05/27/24 trazodone 300 mg tablet 300 mg PO .q hs PRN sleep #30 tabs 05/27/24 vortioxetine 20 mg tablet 20 mg PO .q am #30 tabs 05/27/24 (Trintellix) Allergies Allergy/AdvReac Type Severity Reaction Status Date / Time haloperidol [From Haldol] Allergy Severe unknown Verified 05/29/24 09:40 Penicillins Allergy Severe ALGY-Anaphy Verified 05/29/24 09:40 laxis sulfamethoxazole Allergy Severe ALGY-Hives Verified 05/29/24 09:40 [From Bactrim] Tetracyclines Allergy Severe ALGY-Hives Verified 05/29/24 09:40 gabapentin [From Neurontin] Allergy Intermediate ADR-Halluci Verified 05/29/24 09:40 nating ketorolac [From Toradol] Allergy Intermediate ALGY-Rash Verified 05/29/24 09:40 lithium Allergy Intermediate ADR-Halluci Verified 05/29/24 09:40 nating fentanyl Allergy Mild rash Verified 05/29/24 09:40 adhesive tape Allergy Rash Verified 05/29/24 09:40 codeine Allergy GI Verified 05/29/24 09:40 duloxetine [From Cymbalta] Allergy ALGY-Rash Verified 05/29/24 09:40 fluoxetine Allergy ADR-Migrain Verified 05/29/24 09:40 e metoclopramide [From Reglan] Allergy ADR-Shakine Verified 05/29/24 09:40 ss nitroglycerin Allergy ADV-Weaknes Verified 05/29/24 09:40 s tramadol Allergy Unknown Verified 05/29/24 09:40 trimethoprim [From Bactrim] Allergy ALGY-Hives Verified 05/29/24 09:40 ziprasidone [From Geodon] AdvReac Severe ADR-Halluci Verified 05/29/24 09:40 nating risperidone [From Risperdal] AdvReac ADR-Halluci Verified 05/29/24 09:40 nating Review of Systems 2 Narrative: Constitutional symptoms: Negative except as documented in HPI. Skin symptoms: Negative except as documented in HPI. Eye symptoms: Negative except as documented in HPI. ENMT symptoms: Negative except as documented in HPI. Respiratory symptoms: Negative except as documented in HPI. Cardiovascular symptoms: Negative except as documented in HPI. Gastrointestinal symptoms: Negative except as documented in HPI. Genitourinary symptoms: Negative except as documented in HPI. Musculoskeletal symptoms: Negative except as documented in HPI. Neurologic symptoms: Negative except as documented in HPI. Psychiatric symptoms: Negative except as documented in HPI. Endocrine symptoms: Negative except as documented in HPI. PFSH ED 2 PFSH: Medical History Insomnia Tobacco use disorder Opioid dependence, uncomplicated Cannabis dependence, uncomplicated Psychiatric care Tardive dyskinesia Esophageal stricture Cystitis cystica Chronic gastritis without bleeding Restrictive lung disease Chronic back pain greater than 3 months duration Borderline personality disorder Schizoaffective disorder, bipolar type Urgency incontinence Neurogenic bladder Dysphagia COPD (chronic obstructive pulmonary disease) GERD without esophagitis Foreign body in bladder Bladder stone Chronic anxiety Surgical History H/O bladder repair surgery MESH REPAIR H/O esophagogastroduodenoscopy (09/21/20) H/O colonoscopy with polypectomy History of foot surgery sx in 2009. Screws placed by Dr. Don. S/P bronchoscopy with biopsy History of ureter stent History of breast biopsy Hx of cholecystectomy H/O: hysterectomy History of appendectomy Family History Mother No problems noted. Father No problems noted. Other Asthma Cancer Diabetes Heart disease Social History Smoking and tobacco/nicotine status: current every day tobacco/nicotine user cigarettes Packs smoked per day: 1 Years cigarettes smoked: 20 [ Other cigarette details: Hx of 1 PPD x 20 Years, started at age 27] Quit status (tobacco/nicotine): considering quitting Second hand smoke exposure: Yes Alcohol intake: never Substance/Drug Use: former Lives independently: Yes Household members: spouse Marital status: Number of children: 3 Current occupational status: disabled Do you think of yourself as: Straight/Heterosexual Current gender identity: Female Physical Exam 2 Narrative: EXAM NARRATIVE: General: Alert, no acute distress. Skin: Warm, dry. Head: Normocephalic, atraumatic. Neck: Supple, trachea midline. Eye: Extraocular movements are intact. Ears, nose, mouth and throat: mucosa moist. Cardiovascular: Regular, Normal peripheral perfusion. Respiratory: Lungs are clear to auscultation, respirations are non-labored, breath sounds are equal, Symmetrical chest wall expansion. Gastrointestinal: Soft, epigastric tenderness, Non distended Musculoskeletal: Normal ROM, no deformity. Neurological: Alert and oriented, No focal neurological deficit observed. Psychiatric: Cooperative, appropriate mood & affect. Course 2 Vital Signs: Vital signs: Vital Signs Temperature 98.3 F 06/05/24 19:16 Pulse Rate 87 06/05/24 19:16 Respiratory Rate 16 06/05/24 19:16 Blood Pressure 105/64 06/05/24 19:16 Pulse Oximetry 96 06/05/24 19:16 Oxygen Delivery Me thod Room Air 06/05/24 19:16 MDM - Abdominal Pain Medical Decision Making Assessment and plan: Chronic abdominal pain ?[place] in the emergency room - Discharged home - Discussed plan with patient. Answered any questions. - Evaluation and treatment of this problem were appropriate in the emergency setting. Lab Data 06/05/24 20:12 06/05/24 20:12 Labs/Radiology: Laboratory Results WBC 9.08 10^3/uL (3.29-11.43) 06/05/24 20:12 RBC 3.96 10^6/uL (3.85-5.65) 06/05/24 20:12 Hgb 13.30 g/dL (11.27-16.99) 06/05/24 20:12 Hct 40.0 % (36-47) 06/05/24 20:12 MCV 101.0 fl (85-98) H 06/05/24 20:12 MCH 33.6 pg (27-33) H 06/05/24 20:12 MCHC 33.3 g/dL (30-55) 06/05/24 20:12 RDW 13.5 % (12.1-15.1) 06/05/24 20:12 Plt Count 207 10^3/cmm (157-399) 06/05/24 20:12 MPV 9.5 fL (7.4-10.4) 06/05/24 20:12 Neut % (Auto) 49.4 % 06/05/24 20:12 Lymph % (Auto) 37.3 % 06/05/24 20:12 Holt % (Auto) 8.3 % 06/05/24 20:12 Eos % (Auto) 3.6 % 06/05/24 20:12 Baso % (Auto) 1.1 % 06/05/24 20:12 Neut # (Auto) 4.48 10^3/uL (1.8-7.7) 06/05/24 20:12 Lymph # (Auto) 3.4 10^3/uL (0.8-4.8) 06/05/24 20:12 Holt # (Auto) 0.8 10^3/uL (0.2-0.9) 06/05/24 20:12 Eos # (Auto) 0.3 10^3/uL (0.0-0.8) 06/05/24 20:12 Baso # (Auto) 0.1 10^3/uL (0.0-0.1) 06/05/24 20:12 Nucleated RBC % (auto) 0 % 06/05/24 20:12 Nucleated RBCs # 0.0 /100WBC 06/05/24 20:12 Sodium 138 mmol/L (136-145) 06/05/24 20:12 Potassium 4.1 mmol/L (3.5-5.1) 06/05/24 20:12 Chloride 104 mmol/L (98-107) 06/05/24 20:12 Carbon Dioxide 21 mmol/L (22-29) L 06/05/24 20:12 Anion Gap 17.1 (5-19) 06/05/24 20:12 BUN 20 mg/dL (6-20) 06/05/24 20:12 Creatinine 0.9 mg/dL (0.5-0.9) 06/05/24 20:12 GFR Calculation 64.8 mL/min (90-130) L 06/05/24 20:12 Glucose 124 mg/dL (65-115) H 06/05/24 20:12 Calculated Osmolality 290 mOsm/kg (285-295) 06/05/24 20:12 Calcium 9.3 mg/dL (8.5-10.5) 06/05/24 20:12 Total Bilirubin 0.2 mg/dL (0.15-1.2) 06/05/24 20:12 AST 16 U/L (0-32) 06/05/24 20:12 ALT 17 U/L (0-33) 06/05/24 20:12 Alkaline Phosphatase 138 U/L (35-105) H 06/05/24 20:12 Total Protein 6.6 g/dL (6.6-8.7) 06/05/24 20:12 Albumin 4.1 g/dL (3.5-5.2) 06/05/24 20:12 Globulin 2.5 g/dL (1.3-4.6) 06/05/24 20:12 Lipase 26 U/L (13-60) 06/05/24 20:12 No radiology studies performed this visit Discharge Plan Discharge Patient Disposition: Home Clinical Impression: Chronic abdominal pain Condition: Stable Prescriptions: No Action promethazine 25 mg suppository 25 mg NM Q6H PRN pantoprazole 40 mg tablet,delayed release (DR/EC) 40 mg PO BID (DME) SOLE Supports See Rx Instructions .Route .MEDSUPPLY Qty: 1 0RF Rx Instructions: As directed PRE-Auth prednisolone acetate 1 % drops,suspension ophthalmic (eye) lubiprostone 8 mcg capsule PO fluticasone propionate [Flonase Allergy Relief] 50 mcg/actuation spray,suspension 1 spray intranasal DAILY PRN (Reason: nasal congestion) 30 Days Qty: 16 2RF Rx Instructions: administer into each nostril dicyclomine 10 mg capsule 10 mg PO BID PRN ondansetron HCl 4 mg tablet 4 mg PO Q8H sucralfate [Carafate] 1 gram tablet 1 g PO QID polyethylene glycol 3350 [Miralax] 17 gram/dose powder 4 g PO DAILY lamotrigine 200 mg tablet 200 mg PO DAILY@06 Qty: 30 2RF Rx Instructions: Take one tablet by mouth every morning quetiapine 50 mg tablet 50 mg PO BID Qty: 60 2RF Rx Instructions: Take one tablet by mouth every morning and at bedtime quetiapine 25 mg tablet 25 mg PO BID PRN (Reason: agitation) Qty: 60 2RF Rx Instructions: Take one tablet up to twice a day, if needed, for agitation trazodone 300 mg tablet 300 mg PO .q hs PRN (Reason: sleep) Qty: 30 2RF Rx Instructions: Take one tablet daily at bedtime, if needed for sleep Trintellix 20 mg tablet 20 mg PO .q am Qty: 30 2RF Rx Instructions: Take one tablet once daily nystatin 100,000 unit/gram powder 1 applic topical BID Qty: 30 0RF Rx Instructions: apply locally to B/L groin folds albuterol sulfate 90 mcg/actuation HFA aerosol inhaler See Rx Instructions .ROUTE .COMPLEX Qty: 8.5 0RF Dose Instruction: INHALE 2 PUFFS BY MOUTH EVERY 6 HOURS NEEDED FOR SHORTNESS OF BREATH OR WHEEZING Rx Instructions: INHALE 2 PUFFS BY MOUTH EVERY 6 HOURS NEEDED FOR SHORTNESS OF BREATH OR WHEEZING acetaminophen 500 mg Tablet 1,000 mg PO Q6H PRN (Reason: Pain) Discharge Orders: Discharge ED (Routine); Ordered 06/05/24 Ordered By: April Gee Referrals: Dara Tavera, AMANDEEP [Primary Care Provider] - Discharge Diet: Advance as tolerated Discharge Activity: Increase activity as tolerated Patient Instructions: Abdominal Pain (ED), Opioid Safety, Pain Management Activity Restrictions/Additional Instructions: Thank you for choosing [facility] for your healthcare needs today. Please realize this is an emergency room and that we are providing you with a medical screening exam and this may not be complete and all inclusive of all the testing and or work up that you may need to determine your ailment or severity of your illness. You have been screened and evaluated and felt safe for discharge. Health conditions do change or evolve sometimes and as such it is important that you follow up with your Primary Doctor to be re checked, 3-5 days is a general good time frame for follow up. You are always welcome to return to the ED for re assessment if your symptoms are worsening or you have new concerns Coding Level of Care Code ED Gold Tooler for Shellie Guallpa
[2024-06-05 21:47] VITALS: BP 126/62; PULSE 85; RESP 15; O2SAT 97
[2024-06-05] MEDS: HYDROcodone-acetaminophen 10-325 mg Tablet 1 TAB PO (21:51)
[2024-06-05 21:54] VITALS: BP 126/62; PULSE 74; O2SAT 97
== END 2024-06-05 21:55 | disposition home or self-care (01) ==
PROVIDERS: Emergency Medicine; Emergency Provider Emergency Medicine; PCP Registered Nurse
DX: R10.9 Unspecified abdominal pain (principal); F17.210 Nicotine dependence, cigarettes, uncomplicated; J44.9 Chronic obstructive pulmonary disease, unspecified
CPT/HCPCS: 36415; 80053; 83690; 85025; 99283

== ENCOUNTER 2024-06-25 19:31 | Emergency (ER) | payer MEDICARE, MEDICAID, SELFPAY ==
--- NOTE | 2024-06-25 19:36 | ECG_ITS ---
[facility] Pat Name: Latesha Wilhelm Department: Room: Gender: Female Track Broom Operator: : [id number] Requested By: April River Order Number: [id number] Alice MD: Severo Aly M.D. Measurements Intervals [place] Rate: 65 P: 62 HI: 152 QRS: 42 QRSD: 96 T: 53 QT: 407 QTc: 426 Interpretive Statements SINUS RHYTHM POSSIBLE LEFT ATRIAL ENLARGEMENT [-0.1mV P-WAVE IN V1/V2] LOW QRS VOLTAGE IN PRECORDIAL LEADS [QRS DEFLECTION < 1.0 mV IN CHEST LEADS] Compared to ECG 07/11/2023 19:26:25 Low QRS voltage now present Incomplete right bundle-branch block no longer present Electronically Signed On 06-25-2024 21:11:52 DIESEL ENGINE ASSEMBLER by Severo Aly M.D. [email or web address]
[2024-06-25 19:42] VITALS: BP 112/61; PULSE 67; TEMP 36.8; O2SAT 94
[2024-06-25 21:37] LABS: Basophils # 0.1 10^3/uL (0.0-0.1); Basophils % 0.7 %; Eosinophils # 0.4 10^3/uL (0.0-0.8); Eosinophils % 3.1 %; Hematocrit 40.4 % (36-47); Lymphocytes # 3.3 10^3/uL (0.8-4.8); Lymphocytes % 27.3 %; Mean Corpuscular HGB Conc 32.7 g/dL (30-55); Mean Corpuscular Hemoglobin 33.2 pg (27-33); Mean Corpuscular Volume 101.8 fl (85-98); Mean Platelet Volume 9.8 fL (7.4-10.4); Monocytes # 0.9 10^3/uL (0.2-0.9); Monocytes % 7.4 %; Neutrophils # 7.41 10^3/uL (1.8-7.7); Neutrophils % 61.3 %; Nucleated Red Blood Cells % 0 %; Platelet Count 211 10^3/cmm (157-399); Red Blood Count 3.97 10^6/uL (3.85-5.65)
[2024-06-25 22:02] LABS: Troponin(5th) Baseline < 6 ng/L (0-10)
--- NOTE | 2024-06-25 22:10 | ECG_ITS ---
[facility] Test Date: 2024-06-26 Pat Name: Latesha Wilhelm Department: Room: Gender: Female Train Station Agent: : 1965 Requested By: April River Order Number: [id number] Aliec MD: Kenan Sidhu M.D. Measurements Intervals [place] Rate: 58 P: 72 ME: 181 QRS: 73 QRSD: 95 T: 58 QT: 428 QTc: 422 Interpretive Statements SINUS BRADYCARDIA WITH MARKED SINUS ARRHYTHMIA Compared to ECG 06/25/2024 19:36:50 Sinus rhythm no longer present Electronically Signed On 06-26-2024 17:37:17 GAS FITTER APPRENTICE by Kenan Sidhu M.D. [email or web address]
[2024-06-25 22:11] LABS: Alanine Aminotransferase 13 U/L (0-33); Albumin Level 4.1 g/dL (3.5-5.2); Alkaline Phosphatase 132 U/L (35-105); Aspartate Amino Transferase 15 U/L (0-32); Blood Urea Nitrogen 18 mg/dL (6-20); Calcium 9.1 mg/dL (8.5-10.5); Carbon Dioxide 21 mmol/L (22-29); Chloride 102 mmol/L (98-107); Creatinine Clr Calc Pharmacy 64.1088; Globulin 2.1 g/dL (1.3-4.6); Glomerular Filtration Rate 64.8 mL/min (90-130); Glucose 97 mg/dL (65-115); NT Pro B Type Natriuretic Pept 120 pg/mL (0-125); Osmolality Calculated 288 mOsm/kg (285-295); Sodium 138 mmol/L (136-145); Total Bilirubin 0.2 mg/dL (0.15-1.2); Total Protein 6.2 g/dL (6.6-8.7)
[2024-06-25 23:36] LABS: Troponin 5 2HR Delta 0.00001 ABS# (0-10)
--- NOTE | 2024-06-26 00:16 | ED_ITS ---
HPI - Chest Pain 2 General: Chief Complaint: Chest Pain Stated Complaint: CHEST PAIN Time Seen by Provider: 06/26/24 00:15 History of Present Illness: 58-year-old female presents emergency ro om with pain in her central chest. Hurts worse with breathing. She tried some Tylenol at home which did not help. She had some nausea as well. Related Data Home Medications Medication Instructions Recorded Confirmed acetaminophen 500 mg tablet 1,000 mg PO Q6H PRN Pain 07/09/21 05/29/24 pantoprazole 40 mg tablet,delayed 40 mg PO BID 07/27/23 05/29/24 release promethazine 25 mg rectal 25 mg NE Q6H PRN 07/27/23 05/29/24 suppository ondansetron HCl 4 mg tablet 4 mg PO Q8H 01/22/24 05/29/24 lubiprostone 8 mcg capsule mcg PO 05/10/24 05/29/24 prednisolone acetate 1 % eye drp ophthalmic (eye) 05/10/24 05/29/24 drops,suspension dicyclomine 10 mg capsule 10 mg PO BID PRN 05/27/24 05/29/24 polyethylene glycol 3350 17 4 g PO DAILY 05/27/24 05/29/24 gram/dose oral powder (Miralax) sucralfate 1 gram tablet (Carafate) 1 g PO QID 05/27/24 05/29/24 Previous Rx's Medication Instructions Recorded nystatin 100,000 unit/gram topical 1 applic topical BID #30 grams 06/16/22 powder SOLE Supports #1 ea 01/01/24 fluticasone propionate 50 1 spray intranasal DAILY PRN nasal 05/10/24 mcg/actuation nasal congestion 30 days #16 grams spray,suspension (Flonase Allergy Relief) albuterol sulfate 90 mcg/actuation See Rx Instructions .Route 05/13/24 aerosol inhaler .COMPLEX #8.5 grams lamotrigine 200 mg tablet 200 mg PO DAILY@06 #30 tabs 05/27/24 quetiapine 25 mg tablet 25 mg PO BID PRN agitation #60 tabs 05/27/24 quetiapine 50 mg tablet 50 mg PO BID #60 tabs 05/27/24 trazodone 300 mg tablet 300 mg PO .q hs PRN sleep #30 tabs 12/09/24 vortioxetine 20 mg tablet 20 mg PO .q am #30 tabs 05/27/24 (Trintellix) dexamethasone 6 mg tablet 6 mg PO DAILY 5 days #5 tabs 06/26/24 diclofenac sodium 50 mg 50 mg PO BID PRN pain #14 tabs 06/26/24 tablet,delayed release ondansetron 4 mg disintegrating 4 mg PO Q8H PRN nausea and 06/26/24 tablet vomiting #10 tabs Allergies Allergy/AdvReac Type Severity Reaction Status Date / Time haloperidol [From Haldol] Allergy Severe unknown Verified 06/25/24 19:46 Penicillins Allergy Severe ALGY-Anaphy Verified 06/25/24 19:46 laxis sulfamethoxazole Allergy Severe ALGY-Hives Verified 06/25/24 19:46 [From Bactrim] Tetracyclines Allergy Severe ALGY-Hives Verified 06/25/24 19:46 gabapentin [From Neurontin] Allergy Intermediate ADR-Halluci Verified 06/25/24 19:46 nating ketorolac [From Toradol] Allergy Intermediate ALGY-Rash Verified 06/25/24 19:46 lithium Allergy Intermediate ADR-Halluci Verified 06/25/24 19:46 nating fentanyl Allergy Mild rash Verified 06/25/24 19:46 adhesive tape Allergy Rash Verified 06/25/24 19:46 codeine Allergy GI Verified 06/25/24 19:46 duloxetine [From Cymbalta] Allergy ALGY-Rash Verified 06/25/24 19:46 fluoxetine Allergy ADR-Migrain Verified 06/25/24 19:46 e metoclopramide [From Reglan] Allergy ADR-Shakine Verified 06/25/24 19:46 ss nitroglycerin Allergy ADV-Weaknes Verified 06/25/24 19:46 s tramadol Allergy Unknown Verified 06/25/24 19:46 trimethoprim [From Bactrim] Allergy ALGY-Hives Verified 06/25/24 19:46 ziprasidone [From Geodon] AdvReac Severe ADR-Halluci Verified 06/25/24 19:46 nating risperidone [From Risperdal] AdvReac ADR-Halluci Verified 06/25/24 19:46 nating Review of Systems 2 Narrative: Constitutional symptoms: Negative except as documented in HPI. Skin symptoms: Negative except as documented in HPI. Eye symptoms: Negative except as documented in HPI. ENMT symptoms: Negative except as documented in HPI. Respiratory symptoms: Negative except as documented in HPI. Cardiovascular symptoms: Negative except as documented in HPI. Gastrointestinal symptoms: Negative except as documented in HPI. Genitourinary symptoms: Negative except as documented in HPI. Musculoskeletal symptoms: Negative except as documented in HPI. Neurologic symptoms: Negative except as documented in HPI. Psychiatric symptoms: Negative except as documented in HPI. Endocrine symptoms: Negative except as documented in HPI. PFSH ED 2 PFSH: Medical History Insomnia Tobacco use disorder Opioid dependence, uncomplicated Cannabis dependence, uncomplicated Psychiatric care Tardive dyskinesia Esophageal stricture Cystitis cystica Chronic gastritis without bleeding Restrictive lung disease Chronic back pain greater than 3 months duration Borderline personality disorder Schizoaffective disorder, bipolar type Urgency incontinence Neurogenic bladder Dysphagia COPD (chronic obstructive pulmonary disease) GERD without esophagitis Foreign body in bladder Bladder stone Chronic anxiety Surgical History H/O bladder repair surgery MESH REPAIR H/O esophagogastroduodenoscopy (09/21/20) H/O colonoscopy with polypectomy History of foot surgery sx in 2009. Screws placed by Dr. Don. S/P bronchoscopy with biopsy History of ureter stent History of breast biopsy Hx of cholecystectomy H/O: hysterectomy History of appendectomy Family History Mother No problems noted. Father No problems noted. Other Asthma Cancer Diabetes Heart disease Social History Smoking and tobacco/nicotine status: current every day tobacco/nicotine user cigarettes Packs smoked per day: 1 Years cigarettes smoked: 20 [ Other cigarette details: Hx of 1 PPD x 20 Years, started at age 27] Quit status (tobacco/nicotine): considering quitting Second hand smoke exposure: Yes Alcohol intake: never Substance/Drug Use: former Lives independently: Yes Household members: spouse Marital status: Number of children: 3 Current occupational status: disabled Do you think of yourself as: Straight/Heterosexual Current gender identity: Female Physical Exam 2 Narrative: EXAM NARRATIVE: General: Alert, no acute distress. Skin: Warm, dry. Head: Normocephalic, atraumatic. Neck: Supple, trachea midline. Eye: Extraocular movements are intact. Ears, nose, mouth and throat: mucosa moist. Cardiovascular: Regular, Normal peripheral perfusion. Respiratory: Lungs are clear to auscultation, respirations are non-labored, breath sounds are equal, Symmetrical chest wall expansion. Gastrointestinal: Soft, Nontender, Non distended Musculoskeletal: Normal ROM, no deformity. Neurological: Alert and oriented, No focal neurological deficit observed. Psychiatric: Cooperative, appropriate mood & affect. Course 2 Vital Signs: Vital signs: Vital Signs Temperature 98.2 F 06/25/24 19:42 Pulse Rate 67 06/25/24 19:42 Blood Pressure 112/61 06/25/24 19:42 Pulse Oximetry 94 06/25/24 19:42 Oxygen Delivery Me thod Room Air 06/25/24 19:42 MDM - Chest Pain Medical Decision Making Differential diagnosis for patient with chest pain includes but is not limited to and based on the above HPI, review of systems and physical exam: Pneumonia. unstable angina. angina. Acute coronary syndrome / HI. Pulmonary embolism. Costochondritis / musculoskeletal. Pleurisy. Pericarditis. Esophageal spasm. Pancreatis. Cholecystitis. Orders placed to evaluate differential diagnosis based on the above differential, HPI and physical exam EKG: Time 12:18 AM rate 58. Sinus bradycardia, No ST-T changes, no ectopy, normal NE & QRS intervals, This was reviewed and interpreted by myself the ER physician at 12:20 AM Chest x-ray: No acute process. No infiltrate. No pneumothorax. This was reviewed and interpreted by myself the emergency room physician. I also reviewed the radiology report. Lab Review: Laboratory results were reviewed and interpreted by myself the emergency room physician. Lab work is normal including serial troponins. I reviewed the patient's medical record. Reexamination: Patient remained stable. No increased work of breathing. No altered mental status. No focal motor deficits. Assessment and plan: Noncardiac chest pain ?P.o. [place], IV Decadron and IV Zofran - Discharged home - Discussed findings and plan with patient. Answered any questions. - All laboratory values were reviewed and interpreted personally by myself, the ER physician - All imaging was reviewed and interpreted personally by myself, the ER physician. - Evaluation and treatment of this problem were appropriate in the emergency setting Lab Data 06/25/24 20:52 06/25/24 20:52 Laboratory Results WBC 12.10 10^3/uL (3.29-11.43) H 06/25/24 20:52 RBC 3.97 10^6/uL (3.85-5.65) 06/25/24 20:52 Hgb 13.20 g/dL (11.27-16.99) 06/25/24 20:52 Hct 40.4 % (36-47) 06/25/24 20:52 MCV 101.8 fl (85-98) H 06/25/24 20:52 MCH 33.2 pg (27-33) H 06/25/24 20:52 MCHC 32.7 g/dL (30-55) 06/25/24 20: RDW 13.0 % (12.1-15.1) 06/25/24 20:52 Plt Count 211 10^3/cmm (157-399) 06/25/24 20:52 MPV 9.8 fL (7.4-10.4) 06/25/24 20:52 Neut % (Auto) 61.3 % 06/25/24 20:52 Lymph % (Auto) 27.3 % 06/25/24 20:52 [place] % (Auto) 7.4 % 06/25/24 20:52 Eos % (Auto) 3.1 % 06/25/24 20:52 Baso % (Auto) 0.7 % 06/25/24 20:52 Neut # (Auto) 7.41 10^3/uL (1.8-7.7) 06/25/24 20:52 Lymph # (Auto) 3.3 10^3/uL (0.8-4.8) 06/25/24 20:52 [place] # (Auto) 0.9 10^3/uL (0.2-0.9) 06/25/24 20:52 Eos # (Auto) 0.4 10^3/uL (0.0-0.8) 06/25/24 20:52 Baso # (Auto) 0.1 10^3/uL (0.0-0.1) 06/25/24 20:52 Nucleated RBC % (auto) 0 % 06/25/24 20:52 Nucleated RBCs # 0.0 /100WBC 06/25/24 20:52 Sodium 138 mmol/L (136-145) 06/25/24 20:52 Potassium 4.0 mmol/L (3.5-5.1) 06/25/24 20:52 Chloride 102 mmol/L (98-107) 06/25/24 20:52 Carbon Dioxide 21 mmol/L (22-29) L 06/25/24 20:52 Anion Gap 19.0 (5-19) 06/25/24 20:52 BUN 18 mg/dL (6-20) 06/25/24 20:52 Creatinine 0.9 mg/dL (0.5-0.9) 06/25/24 20:52 GFR Calculation 64.8 mL/min (90-130) L 06/25/24 20:52 Glucose 97 mg/dL (65-115) 06/25/24 20:52 Calculated Osmolality 288 mOsm/kg (285-295) 06/25/24 20:52 Calcium 9.1 mg/dL (8.5-10.5) 06/25/24 20:52 Total Bilirubin 0.2 mg/dL (0.15-1.2) 06/25/24 20:52 AST 15 U/L (0-32) 06/25/24 20:52 ALT 13 U/L (0-33) 06/25/24 20:52 Alkaline Phosphatase 132 U/L (35-105) H 06/25/24 20:52 Troponin T Baseline < 6 ng/L (0-10) 06/25/24 20:52 Troponin T 120 Minute 6.00 ng/L (0-10) 06/25/24 23:04 Delta Troponin T 0.64180 ABS# (0-10) 06/25/24 23:04 NT-Pro-B Natriuret Pep 120 pg/mL (0-125) 06/25/24 20:52 Total Protein 6.2 g/dL (6.6-8.7) L 06/25/24 20:52 Albumin 4.1 g/dL (3.5-5.2) 06/25/24 20:52 Globulin 2.1 g/dL (1.3-4.6) 06/25/24 20:52 All radiology interpretation(s) finalized by discharge Discharge Plan Discharge Patient Disposition: Home Clinical Impression: Non-cardiac chest pain Condition: Stable Prescriptions: New dexamethasone 6 mg tablet 6 mg PO DAILY 5 Days Qty: 5 0RF diclofenac sodium 50 mg tablet,delayed release (DR/EC) 50 mg PO BID PRN (Reason: pain) Qty: 14 0RF ondansetron 4 mg tablet,disintegrating 4 mg PO Q8H PRN (Reason: nausea and vomiting) Qty: 10 0RF No Action promethazine 25 mg suppository 25 mg NE Q6H PRN pantoprazole 40 mg tablet,delayed release (DR/EC) 40 mg PO BID (DME) SOLE Supports See Rx Instructions .Route .MEDSUPPLY Qty: 1 0RF Rx Instructions: As directed PRE-Auth prednisolone acetate 1 % drops,suspension ophthalmic (eye) lubiprostone 8 mcg capsule PO fluticasone propionate [Flonase Allergy Relief] 50 mcg/actuation spray,suspension 1 spray intranasal DAILY PRN (Reason: nasal congestion) 30 Days Qty: 16 2RF Rx Instructions: administer into each nostril dicyclomine 10 mg capsule 10 mg PO BID PRN ondansetron HCl 4 mg tablet 4 mg PO Q8H sucralfate [Carafate] 1 gram tablet 1 g PO QID polyethylene glycol 3350 [Miralax] 17 gram/dose powder 4 g PO DAILY lamotrigine 200 mg tablet 200 mg PO DAILY@06 Qty: 30 2RF Rx Instructions: Take one tablet by mouth every morning quetiapine 50 mg tablet 50 mg PO BID Qty: 60 2RF Rx Instructions: Take one tablet by mouth every morning and at bedtime quetiapine 25 mg tablet 25 mg PO BID PRN (Reason: agitation) Qty: 60 2RF Rx Instructions: Take one tablet up to twice a day, if needed, for agitation trazodone 300 mg tablet 300 mg PO .q hs PRN (Reason: sleep) Qty: 30 2RF Rx Instructions: Take one tablet daily at bedtime, if needed for sleep Trintellix 20 mg tablet 20 mg PO .q am Qty: 30 2RF Rx Instructions: Take one tablet once daily nystatin 100,000 unit/gram powder 1 applic topical BID Qty: 30 0RF Rx Instructions: apply locally to B/L groin folds albuterol sulfate 90 mcg/actuation HFA aerosol inhaler See Rx Instructions .ROUTE .COMPLEX Qty: 8.5 0RF Dose Instruction: INHALE 2 PUFFS BY MOUTH EVERY 6 HOURS NEEDED FOR SHORTNESS OF BREATH OR WHEEZING Rx Instructions: INHALE 2 PUFFS BY MOUTH EVERY 6 HOURS NEEDED FOR SHORTNESS OF BREATH OR WHEEZING acetaminophen 500 mg Tablet 1,000 mg PO Q6H PRN (Reason: Pain) Discharge Orders: Discharge ED (Routine); Ordered 06/26/24 Ordered By: April Gee Referrals: Dara Tavera, CERTIFIED SUBSTANCE ABUSE COUNSELOR [Primary Care Provider] - Discharge Diet: Usual diet Discharge Activity: Increase activity as tolerated Patient Instructions: Noncardiac Chest Pain (ED), Opioid Safety, Pain Management Activity Restrictions/Additional Instructions: Thank you for choosing [facility] for your healthcare needs today. Please realize this is an emergency room and that we are providing you with a medical screening exam and this may not be complete and all inclusive of all the testing and or work up that you may need to determine your ailment or severity of your illness. You have been screened and evaluated and felt safe for discharge. Health conditions do change or evolve sometimes and as such it is important that you follow up with your Primary Doctor to be re checked, 3-5 days is a general good time frame for follow up. You are always welcome to return to the ED for re assessment if your symptoms are worsening or you have new concerns Coding Level of Care Code ED Director Quality Systems for Shellie Guallpa
--- NOTE | 2024-06-26 00:18 | XRR_ITS ---
PROCEDURE INFORMATION: Exam: XR Chest Exam date and time: 06/26/2024 12:29 AM Age: 58 years old Clinical indication: Pain; Chest pressure; Additional info: Chest pain TECHNIQUE: Imaging protocol: Radiologic exam of the chest. Views: 1 view. COMPARISON: CT lung screening [id number] 03/04/2024 3:20 PM FINDINGS: Lungs: Unremarkable. No consolidation. Pleural spaces: Unremarkable. No pleural effusion. No pneumothorax. Heart/Mediastinum: Unremarkable. No cardiomegaly. Bones/joints: Unremarkable. XR/XR chest 1V portable [id number] IMPRESSION: No acute findings.
[2024-06-26] MEDS: HYDROcodone-acetaminophen 5-325 mg Tablet 1 TAB PO (00:56)
[2024-06-26] MEDS: ondansetron 2 mg/ML SDV 2 mL 4 MG IVP (00:59)
[2024-06-26] MEDS: dexamethasone 10 mg/mL INJ IVP (00:59)
[2024-06-26 01:12] VITALS: BP 129/62; PULSE 54; RESP 16; O2SAT 94
== END 2024-06-26 01:32 | disposition home or self-care (01) ==
PROVIDERS: Emergency Provider Emergency Medicine; PCP Registered Nurse
DX: R07.89 Other chest pain (principal); F17.210 Nicotine dependence, cigarettes, uncomplicated; J44.9 Chronic obstructive pulmonary disease, unspecified
CPT/HCPCS: 36415; 71045; 80053; 83880; 84484; 85025; 93005; 96374; 96375; 99285; J1100; J2405

== ENCOUNTER 2024-06-30 23:18 | Emergency (ER) | payer MEDICARE, MEDICAID, SELFPAY ==
[2024-06-30 23:34] VITALS: BP 104/57; PULSE 90; RESP 18; TEMP 36.6; O2SAT 93
[2024-07-01 00:07] VITALS: BP 133/62; PULSE 89; RESP 16; O2SAT 94
--- NOTE | 2024-07-01 00:31 | ED_ITS ---
HPI - Abdominal Pain 2 General: Chief Complaint: Abdominal Pain Stated Complaint: Abd Pain Time Seen by Provider: 07/01/24 00:27 History of Present Illness: 58-year-old female well-known to the [facility] department service. She has chronic abdominal pain. She has been experiencing an exacerbation of her chronic abdominal pain this evening. She states that she has vomited several times. She has taken her dicyclomine, Carafate, pantoprazole, and Zofran at home without improvement. She took Tylenol as well. No fever. No blood in the vomitus. No diarrhea. She does have a history of gastroparesis evidently. Related Data Home Medications Medication Instructions Recorded Confirmed acetaminophen 500 mg tablet 1,000 mg PO Q6H PRN Pain 07/09/21 05/29/24 pantoprazole 40 mg tablet,delayed 40 mg PO BID 07/27/23 05/29/24 release promethazine 25 mg rectal 25 mg NV Q6H PRN 07/27/23 05/29/24 suppository ondansetron HCl 4 mg tablet 4 mg PO Q8H 01/22/24 05/29/24 lubiprostone 8 mcg capsule mcg PO 05/10/24 05/29/24 prednisolone acetate 1 % eye drp ophthalmic (eye) 05/10/24 05/29/24 drops,suspension dicyclomine 10 mg capsule 10 mg PO BID PRN 05/27/24 05/29/24 polyethylene glycol 3350 17 4 g PO DAILY 05/27/24 05/29/24 gram/dose oral powder (Miralax) sucralfate 1 gram tablet (Carafate) 1 g PO QID 05/27/24 05/29/24 Previous Rx's Medication Instructions Recorded nystatin 100,000 unit/gram topical 1 applic topical BID #30 grams 06/16/22 powder SOLE Supports #1 ea 01/01/24 fluticasone propionate 50 1 spray intranasal DAILY PRN nasal 05/10/24 mcg/actuation nasal congestion 30 days #16 grams spray,suspension (Flonase Allergy Relief) albuterol sulfate 90 mcg/actuation See Rx Instructions .Route 05/13/24 aerosol inhaler .COMPLEX #8.5 grams lamotrigine 200 mg tablet 200 mg PO DAILY@06 #30 tabs 05/27/24 quetiapine 25 mg tablet 25 mg PO BID PRN agitation #60 tabs 05/27/24 quetiapine 50 mg tablet 50 mg PO BID #60 tabs 05/27/24 trazodone 300 mg tablet 300 mg PO .q hs PRN sleep #30 tabs 05/27/24 vortioxetine 20 mg tablet 20 mg PO .q am #30 tabs 05/27/24 (Trintellix) dexamethasone 6 mg tablet 6 mg PO DAILY 5 days #5 tabs 06/26/24 diclofenac sodium 50 mg 50 mg PO BID PRN pain #14 tabs 06/26/24 tablet,delayed release ondansetron 4 mg disintegrating 4 mg PO Q8H PRN nausea and 06/26/24 tablet vomiting #10 tabs Allergies Allergy/AdvReac Type Severity Reaction Status Date / Time haloperidol [From Haldol] Allergy Severe unknown Verified 06/30/24 23:38 Penicillins Allergy Severe ALGY-Anaphy Verified 06/30/24 23:38 laxis sulfamethoxazole Allergy Severe ALGY-Hives Verified 06/30/24 23:38 [From Bactrim] Tetracyclines Allergy Severe ALGY-Hives Verified 06/30/24 23:38 gabapentin [From Neurontin] Allergy Intermediate ADR-Halluci Verified 06/30/24 23:38 nating ketorolac [From Toradol] Allergy Intermediate ALGY-Rash Verified 06/30/24 23:38 lithium Allergy Intermediate ADR-Halluci Verified 06/30/24 23:38 nating fentanyl Allergy Mild rash Verified 06/30/24 23:38 adhesive tape Allergy Rash Verified 06/30/24 23:38 codeine Allergy GI Verified 06/30/24 23:38 duloxetine [From Cymbalta] Allergy ALGY-Rash Verified 06/30/24 23:38 fluoxetine Allergy ADR-Migrain Verified 06/30/24 23:38 e metoclopramide [From Reglan] Allergy ADR-Shakine Verified 06/30/24 23:38 ss nitroglycerin Allergy ADV-Weaknes Verified 06/30/24 23:38 s tramadol Allergy Unknown Verified 06/30/24 23:38 trimethoprim [From Bactrim] Allergy ALGY-Hives Verified 06/30/24 23:38 ziprasidone [From Geodon] AdvReac Severe ADR-Halluci Verified 06/30/24 23:38 nating risperidone [From Risperdal] AdvReac ADR-Halluci Verified 06/30/24 23:38 nating [facility] ED 2 PFSH: Medical History Insomnia Tobacco use disorder Opioid dependence, uncomplicated Cannabis dependence, uncomplicated Psychiatric care Tardive dyskinesia Esophageal stricture Cystitis cystica Chronic gastritis without bleeding Restrictive lung disease Chronic back pain greater than 3 months duration Borderline personality disorder Schizoaffective disorder, bipolar type Urgency incontinence Neurogenic bladder Dysphagia COPD (chronic obstructive pulmonary disease) GERD without esophagitis Foreign body in bladder Bladder stone Chronic anxiety Surgical History H/O bladder repair surgery MESH REPAIR H/O esophagogastroduodenoscopy (09/21/20) H/O colonoscopy with polypectomy History of foot surgery sx in 2009. Screws placed by Dr. Don. S/P bronchoscopy with biopsy History of ureter stent History of breast biopsy Hx of cholecystectomy H/O: hysterectomy History of appendectomy Family History Mother No problems noted. Father No problems noted. Other Asthma Cancer Diabetes Heart disease Social History Smoking and tobacco/nicotine status: current every day tobacco/nicotine user cigarettes Packs smoked per day: 1 Years cigarettes smoked: 20 [ Other cigarette details: Hx of 1 PPD x 20 Years, started at age 27] Quit status (tobacco/nicotine): considering quitting Second hand smoke exposure: Yes Alcohol intake: never Substance/Drug Use: former Lives independently: Yes Household members: spouse Marital status: Number of children: 3 Current occupational status: disabled Do you think of yourself as: Straight/Heterosexual Current gender identity: Female Physical Exam 2 Const: COMMON NORMALS: no acute distress GENERAL APPEARANCE: cooperative; not ill appearing and not frail appearing HENMT: COMMON NORMALS: normocephalic, atraumatic and Normal external nose present HEAD & SCALP: normocephalic and atraumatic FACE & SINUS: normal facial exam and face symmetric NOSE: Normal external nose present Eye: COMMON NORMALS: Equal, round and reactive pupils present and EOMs intact bilaterally PUPIL: Yes Equal, round and reactive pupils present Neck/C-Spine: GENERAL: Yes trachea midline Chest: CHEST: Yes Symmetrical chest wall rise Resp: COMMON NORMALS: normal respiratory effort, No retractions, No use of accessory muscles and clear to auscultation bilaterally AUSCULTATION: clear to auscultation bilaterally Cardio: COMMON NORMALS: regular rate and regular rhythm RATE: regular rate RHYTHM: regular rhythm GI: COMMON NORMALS: Normal to inspection, nondistended, normoactive bowel sounds present PALPATION: Yes Tenderness to palpation present (GI) (Epigastric) Extremity: COMMON NORMALS: no pedal edema Neuro: JEANINE COMA SCALE: document GCS findings Jeanine coma scale eye opening: Spontaneous Jeanine coma scale verbal response: Orientated Von[place] coma scale motor response: Obey commands Vonore coma scale total score: 15 S ENSORY EXAM: Yes extremities (intact) Psych: COMMON NORMALS: speech normal SPEECH: Yes normal speech Skin: COMMON NORMALS: no rashes or lesions noted GENERAL SKIN EXAM: no rashes or lesions noted Course 2 Vital Signs: Vital signs: Vital Signs Temperature 97.9 F 06/30/24 23:34 Pulse Rate 72 07/01/24 04:02 Respiratory Rate 14 07/01/24 03:30 Blood Pressure 118/46 07/01/24 04:02 Pulse Oximetry 99 07/01/24 04:02 Oxygen Delivery Me thod Room Air 06/30/24 23:34 MDM - Abdominal Pain Medical Decision Making Vitals are stable. White blood cell count is 17, but with no left shift at all. CRP is only 3.4. Lipase was normal. Liver enzymes are normal. Other laboratory is not remarkable. She received pain medication and antiemetic here. She is feeling improved. She will be allowed discharge. Lab Data 07/01/24 01:40 07/01/24 01:40 Labs/Radiology: Laboratory Results WBC 17.11 10^3/uL (3.29-11.43) H 07/01/24 01:40 RBC 4.19 10^6/uL (3.85-5.65) 07/01/24 01:40 Hgb 14.00 g/dL (11.27-16.99) 07/01/24 01:40 Hct 41.1 % (36-47) 07/01/24 01:40 MCV 98.1 fl (85-98) H 07/01/24 01:40 MCH 33.4 pg (27-33) H 07/01/24 01:40 MCHC 34.1 g/dL (30-55) 07/01/24 01:40 RDW 13.0 % (12.1-15.1) 07/01/24 01:40 Plt Count 239 10^3/cmm (157-399) 07/01/24 01:40 MPV 9.8 fL (7.4-10.4) 07/01/24 01:40 Neut % (Auto) 65.7 % 07/01/24 01:40 Lymph % (Auto) 25.7 % 07/01/24 01:40 [place] % (Auto) 7.7 % 07/01/24 01:40 Eos % (Auto) 0.2 % 07/01/24 01:40 Baso % (Auto) 0.2 % 07/01/24 01:40 Neut # (Auto) 11.23 10^3/uL (1.8-7.7) H 07/01/24 01:40 Lymph # (Auto) 4.4 10^3/uL (0.8-4.8) 07/01/24 01:40 [place] # (Auto) 1.3 10^3/uL (0.2-0.9) H 07/01/24 01:40 Eos # (Auto) 0.0 10^3/uL (0.0-0.8) 07/01/24 01:40 Baso # (Auto) 0.0 10^3/uL (0.0-0.1) 07/01/24 01:40 Nucleated RBC % (auto) 0 % 07/01/24 01:40 Nucleated RBCs # 0.0 /100WBC 07/01/24 01:40 Sodium 138 mmol/L (136-145) 07/01/24 01:40 Potassium 3.5 mmol/L (3.5-5.1) 07/01/24 01:40 Chloride 101 mmol/L (98-107) 07/01/24 01:40 Carbon Dioxide 25 mmol/L (22-29) 07/01/24 01:40 Anion Gap 15.5 (5-19) 07/01/24 01:40 BUN 22 mg/dL (6-20) H 07/01/24 01:40 Creatinine 0.8 mg/dL (0.5-0.9) 07/01/24 01:40 GFR Calculation 74.2 mL/min (90-130) L 07/01/24 01:40 Glucose 102 mg/dL (65-115) 07/01/24 01:40 Calculated Osmolality 290 mOsm/kg (285-295) 07/01/24 01:40 Calcium 9.9 mg/dL (8.5-10.5) 07/01/24 01:40 Total Bilirubin 0.2 mg/dL (0.15-1.2) 07/01/24 01:40 AST 12 U/L (0-32) 07/01/24 01:40 ALT 18 U/L (0-33) 07/01/24 01:40 Alkaline Phosphatase 106 U/L (35-105) H 07/01/24 01:40 C-Reactive Protein 3.4 mg/L (0.0-4.9) 07/01/24 01:40 Total Protein 6.6 g/dL (6.6-8.7) 07/01/24 01:40 Albumin 4.0 g/dL (3.5-5.2) 07/01/24 01:40 Globulin 2.6 g/dL (1.3-4.6) 07/01/24 01:40 Lipase 35 U/L (13-60) 07/01/24 01:40 No radiology studies performed this visit Discharge Plan Discharge Patient Disposition: Home Clinical Impression: Abdominal pain Condition: Stable Prescriptions: No Action promethazine 25 mg suppository 25 mg NV Q6H PRN pantoprazole 40 mg tablet,delayed release (DR/EC) 40 mg PO BID (DME) SOLE Supports See Rx Instructions .Route .MEDSUPPLY Qty: 1 0RF Rx Instructions: As directed PRE-Auth prednisolone acetate 1 % drops,suspension ophthalmic (eye) lubiprostone 8 mcg capsule PO fluticasone propionate [Flonase Allergy Relief] 50 mcg/actuation spray,suspension 1 spray intranasal DAILY PRN (Reason: nasal congestion) 30 Days Qty: 16 2RF Rx Instructions: administer into each nostril dicyclomine 10 mg capsule 10 mg PO BID PRN ondansetron HCl 4 mg tablet 4 mg PO Q8H sucralfate [Carafate] 1 gram tablet 1 g PO QID polyethylene glycol 3350 [Miralax] 17 gram/dose powder 4 g PO DAILY lamotrigine 200 mg tablet 200 mg PO DAILY@06 Qty: 30 2RF Rx Instructions: Take one tablet by mouth every morning quetiapine 50 mg tablet 50 mg PO BID Qty: 60 2RF Rx Instructions: Take one tablet by mouth every morning and at bedtime quetiapine 25 mg tablet 25 mg PO BID PRN (Reason: agitation) Qty: 60 2RF Rx Instructions: Take one tablet up to twice a day, if needed, for agitation trazodone 300 mg tablet 300 mg PO .q hs PRN (Reason: sleep) Qty: 30 2RF Rx Instructions: Take one tablet daily at bedtime, if needed for sleep Trintellix 20 mg tablet 20 mg PO .q am Qty: 30 2RF Rx Instructions: Take one tablet once daily nystatin 100,000 unit/gram powder 1 applic topical BID Qty: 30 0RF Rx Instructions: apply locally to B/L groin folds albuterol sulfate 90 mcg/actuation HFA aerosol inhaler See Rx Instructions .ROUTE .COMPLEX Qty: 8.5 0RF Dose Instruction: INHALE 2 PUFFS BY MOUTH EVERY 6 HOURS NEEDED FOR SHORTNESS OF BREATH OR WHEEZING Rx Instructions: INHALE 2 PUFFS BY MOUTH EVERY 6 HOURS NEEDED FOR SHORTNESS OF BREATH OR WHEEZING acetaminophen 500 mg Tablet 1,000 mg PO Q6H PRN (Reason: Pain) dexamethasone 6 mg tablet 6 mg PO DAILY 5 Days Qty: 5 0RF diclofenac sodium 50 mg tablet,delayed release (DR/EC) 50 mg PO BID PRN (Reason: pain) Qty: 14 0RF ondansetron 4 mg tablet,disintegrating 4 mg PO Q8H PRN (Reason: nausea and vomiting) Qty: 10 0RF Discharge Orders: Discharge ED (Routine); Ordered 07/01/24 Ordered By: Chivo Deleon Referrals: Dara Tavera FNP [Primary Care Provider] - 1-3 days Patient Instructions: Abdominal Pain (ED), Opioid Safety, Pain Management Coding Level of Care Code ED Sharebroker for Shellie Guallpa
[2024-07-01 00:34] VITALS: BP 111/76; PULSE 76; RESP 16; O2SAT 94
[2024-07-01 01:53] LABS: Basophils % 0.2 %; Eosinophils % 0.2 %; Hematocrit 41.1 % (36-47); Lymphocytes # 4.4 10^3/uL (0.8-4.8); Lymphocytes % 25.7 %; Mean Corpuscular HGB Conc 34.1 g/dL (30-55); Mean Corpuscular Hemoglobin 33.4 pg (27-33); Mean Corpuscular Volume 98.1 fl (85-98); Mean Platelet Volume 9.8 fL (7.4-10.4); Monocytes # 1.3 10^3/uL (0.2-0.9); Monocytes % 7.7 %; Neutrophils # 11.23 10^3/uL (1.8-7.7); Neutrophils % 65.7 %; Nucleated Red Blood Cells % 0 %; Platelet Count 239 10^3/cmm (157-399); Red Blood Count 4.19 10^6/uL (3.85-5.65); White Blood Count 17.11 10^3/uL (3.29-11.43)
[2024-07-01] MEDS: prochlorperazine 10 mg/2 mL Inj 5 MG IVP (01:53)
[2024-07-01] MEDS: ondansetron 2 mg/ML SDV 2 mL 4 MG IVP (01:53)
[2024-07-01] MEDS: morphine 4 mg/mL SDV 1 mL 6 MG IVP (01:53)
[2024-07-01 02:02] LABS: Alanine Aminotransferase 18 U/L (0-33); Alkaline Phosphatase 106 U/L (35-105); Anion Gap 15.5 (5-19); Aspartate Amino Transferase 12 U/L (0-32); Blood Urea Nitrogen 22 mg/dL (6-20); C Reactive Protein 3.4 mg/L (0.0-4.9); Calcium 9.9 mg/dL (8.5-10.5); Carbon Dioxide 25 mmol/L (22-29); Chloride 101 mmol/L (98-107); Creatinine Clr Calc Pharmacy 70.9979; Globulin 2.6 g/dL (1.3-4.6); Glomerular Filtration Rate 74.2 mL/min (90-130); Glucose 102 mg/dL (65-115); Lipase 35 U/L (13-60); Osmolality Calculated 290 mOsm/kg (285-295); Potassium 3.5 mmol/L (3.5-5.1); Sodium 138 mmol/L (136-145); Total Bilirubin 0.2 mg/dL (0.15-1.2); Total Protein 6.6 g/dL (6.6-8.7)
[2024-07-01 02:16] LABS: Slide Review Slide Review Perform
[2024-07-01 02:57] VITALS: RESP 18; O2SAT 89
[2024-07-01] MEDS: HYDROmorphone 1 mg/mL INJ 1 mL IVP (02:57)
[2024-07-01 03:30] VITALS: BP 118/46; PULSE 72; RESP 14; O2SAT 99
[2024-07-01 04:02] VITALS: BP 118/46; PULSE 72; O2SAT 99
== END 2024-07-01 04:03 | disposition home or self-care (01) ==
PROVIDERS: Emergency Provider Emergency Medicine; PCP Registered Nurse
DX: R10.9 Unspecified abdominal pain (principal); F17.210 Nicotine dependence, cigarettes, uncomplicated; J44.9 Chronic obstructive pulmonary disease, unspecified
CPT/HCPCS: 80053; 83690; 85025; 86140; 96374; 96375; 99284; J0780; J1171; J2270; J2405

== ENCOUNTER 2024-07-09 19:35 | Emergency (ER) | payer MEDICARE, MEDICAID, SELFPAY ==
[2024-07-09] VITALS (8 sets, daily range): BP systolic 101–123; BP diastolic 55–69; PULSE 72–81; RESP 17–18; TEMP 36.6; O2SAT 94–99; BMI 29.0
--- NOTE | 2024-07-09 20:18 | ED_ITS ---
HPI - Abdominal Pain 2 General: Chief Complaint: Abdominal Pain Stated Complaint: abdomen pain, n/v Time Seen by Provider: 07/09/24 20:10 Source: patient Mode of arrival: EMS Limitations: no limitations History of Present Illness: Patient is a 58-year-old female who presents to the emergency department by ambulance complaining of continued upper abdominal pain. She is well-known to the emergency department here, has multiple prior visits for the same complaint. She specifically states that there is no change in the pain, just is more severe than it has been in the past. States that she has a history of gastroparesis, is set to see her surgeon in [place] next Monday but pain was too unbearable tonight. She was given Zofran en route, stating she is still nauseous. She states that she specifically is given Dilaudid and Zofran for her symptoms and this improves it. Denies any diarrhea or constipation, states last normal bowel movement was 3 hours prior. She is not vomiting, no chest pain or shortness of breath, history of appendectomy and cholecystectomy. No hematemesis or coffee-ground emesis. MD elicited complaint: abdominal pain Pertinent past history: other (Gastroparesis) Pain Consistency: constant Location: Epigastric Severity: similar to previous episodes Radiation: none Migration to: no migration Associated Symptoms: Reports nausea; Denies bloating, change in stool character, chills, constipation, diarrhea, dysuria, fever(s), hematochezia and vomiting Related Data Home Medications Medication Instructions Recorded Confirmed acetaminophen 500 mg tablet 1,000 mg PO Q6H PRN Pain 07/09/21 05/29/24 pantoprazole 40 mg tablet,delayed 40 mg PO BID 07/27/23 05/29/24 release promethazine 25 mg rectal 25 mg RI Q6H PRN 07/27/23 05/29/24 suppository ondansetron HCl 4 mg tablet 4 mg PO Q8H 01/22/24 05/29/24 lubiprostone 8 mcg capsule mcg PO 05/10/24 05/29/24 prednisolone acetate 1 % eye drp ophthalmic (eye) 05/10/24 05/29/24 drops,suspension dicyclomine 10 mg capsule 10 mg PO BID PRN 05/27/24 05/29/24 polyethylene glycol 3350 17 4 g PO DAILY 05/27/24 05/29/24 gram/dose oral powder (Miralax) sucralfate 1 gram tablet (Carafate) 1 g PO QID 05/27/24 05/29/24 Previous Rx's Medication Instructions Recorded nystatin 100,000 unit/gram topical 1 applic topical BID #30 grams 06/16/22 powder SOLE Supports #1 ea 01/01/24 fluticasone propionate 50 1 spray intranasal DAILY PRN nasal 05/10/24 mcg/actuation nasal congestion 30 days #16 grams spray,suspension (Flonase Allergy Relief) lamotrigine 200 mg tablet 200 mg PO DAILY@06 #30 tabs 05/27/24 quetiapine 25 mg tablet 25 mg PO BID PRN agitation #60 tabs 05/27/24 quetiapine 50 mg tablet 50 mg PO BID #60 tabs 05/27/24 trazodone 300 mg tablet 300 mg PO .q hs PRN sleep #30 tabs 05/27/24 vortioxetine 20 mg tablet 20 mg PO .q am #30 tabs 05/27/24 (Trintellix) diclofenac sodium 50 mg 50 mg PO BID PRN pain #14 tabs 06/26/24 tablet,delayed release ondansetron 4 mg disintegrating 4 mg PO Q8H PRN nausea and 06/26/24 tablet vomiting #10 tabs albuterol sulfate 90 mcg/actuation See Rx Instructions .Route 07/01/24 aerosol inhaler .COMPLEX #8.5 grams Allergies Allergy/AdvReac Type Severity Reaction Status Date / Time haloperidol [From Haldol] Allergy Severe unknown Verified 07/09/24 19:45 Penicillins Allergy Severe ALGY-Anaphy Verified 07/09/24 19:45 laxis sulfamethoxazole Allergy Severe ALGY-Hives Verified 07/09/24 19:45 [From Bactrim] Tetracyclines Allergy Severe ALGY-Hives Verified 07/09/24 19:45 gabapentin [From Neurontin] Allergy Intermediate ADR-Halluci Verified 07/09/24 19:45 nating ketorolac [From Toradol] Allergy Intermediate ALGY-Rash Verified 07/09/24 19:45 lithium Allergy Intermediate ADR-Halluci Verified 07/09/24 19:45 nating fentanyl Allergy Mild rash Verified 07/09/24 19:45 adhesive tape Allergy Rash Verified 07/09/24 19:45 codeine Allergy GI Verified 07/09/24 19:45 duloxetine [From Cymbalta] Allergy ALGY-Rash Verified 07/09/24 19:45 fluoxetine Allergy ADR-Migrain Verified 07/09/24 19:45 e metoclopramide [From Reglan] Allergy ADR-Shakine Verified 07/09/24 19:45 ss nitroglycerin Allergy ADV-Weaknes Verified 07/09/24 19:45 s tramadol Allergy Unknown Verified 07/09/24 19:45 trimethoprim [From Bactrim] Allergy ALGY-Hives Verified 07/09/24 19:45 ziprasidone [From Geodon] AdvReac Severe ADR-Halluci Verified 07/09/24 19:45 nating risperidone [From Risperdal] AdvReac ADR-Halluci Verified 07/09/24 19:45 nating Review of Systems 2 General: Reports: 10 or more systems reviewed and unremarkable except in HPI and below Const: Denies: fever(s), chills, change in appetite, change in weight or diaphoresis ENMT: Denies: throat pain or hoarseness Card: Denies: chest pain, palpitations or lightheadedness Resp: Denies: dyspnea, productive cough or wheezing GI: Reports: abdominal pain and nausea; Denies: vomiting, diarrhea, constipation, bloating, change in stool character or hematochezia : Denies: flank pain, difficulty voiding, dysuria, urinary frequency or urinary urgency Musc: Denies: neck pain or back pain Skin/Breast: Denies: rash or new lesions Neuro: Denies: headache(s) or dizziness PFSH ED 2 PFSH: Medical History Insomnia Tobacco use disorder Opioid dependence, uncomplicated Cannabis dependence, uncomplicated Psychiatric care Tardive dyskinesia Esophageal stricture Cystitis cystica Chronic gastritis without bleeding Restrictive lung disease Chronic back pain greater than 3 months duration Borderline personality disorder Schizoaffective disorder, bipolar type Urgency incontinence Neurogenic bladder Dysphagia COPD (chronic obstructive pulmonary disease) GERD without esophagitis Foreign body in bladder Bladder stone Chronic anxiety Surgical History H/O bladder repair surgery MESH REPAIR H/O esophagogastroduodenoscopy (09/21/20) H/O colonoscopy with polypectomy History of foot surgery sx in 2009. Screws placed by Dr. Don. S/P bronchoscopy with biopsy History of ureter stent History of breast biopsy Hx of cholecystectomy H/O: hysterectomy History of appendectomy Family History Mother No problems noted. Father No problems noted. Other Asthma Cancer Diabetes Heart disease Social History Smoking and tobacco/nicotine status: current every day tobacco/nicotine user cigarettes Packs smoked per day: 1 Years cigarettes smoked: 20 [ Other cigarette details: Hx of 1 PPD x 20 Years, started at age 27] Quit status (tobacco/nicotine): considering quitting Second hand smoke exposure: Yes Alcohol intake: never Substance/Drug Use: former Lives independently: Yes Household members: spouse Marital status: Number of children: 3 Current occupational status: disabled Do you think of yourself as: Straight/Heterosexual Current gender identity: Female Physical Exam 2 Const: COMMON NORMALS: patient oriented x3, no limitations, alert and well nourished GENERAL APPEARANCE: cooperative ORIENTATION/CONSCIOUSNESS: Yes awake OTHER: Irritable, anxious Eye: COMMON NORMALS: Equal, round and reactive pupils present, EOMs intact bilaterally, conjunctivae normal and normal visual cortes by confrontation C ONJUNCTIVA: Yes conjunctivae normal PUPIL: Yes Equal, round and reactive pupils present Neck/C-Spine: COMMON NORMALS: full ROM, supple, no meningeal signs and no JVD Resp: COMMON NORMALS: normal respiratory effort, No retractions, No use of accessory muscles and clear to auscultation bilaterally AUSCULTATION: clear to auscultation bilaterally, no crackles, no rales, no rhonchi and no wheezes Cardio: COMMON NORMALS: no JVD, regular rate, regular rhythm, S1 normal heart sound present, S2 normal heart sound present, No gallops present (Cardio), No clicks present (Cardio), No murmurs present (Cardio), No rub (Cardio) and Peripheral pulses 2+ throughout RATE: regular rate RHYTHM: regular rhythm HEART SOUNDS: S1 normal heart sound present and S2 normal heart sound present PERIPHERAL PULSES: Peripheral pulses 2+ throughout GI: COMMON NORMALS: Normal to inspection, nondistended, normoactive bowel sounds present, Soft to palpation, No hepatosplenomegaly present and no masses AUSCULTATION: Yes normoactive bowel sounds PALPATION: Yes Soft to palpation, Yes Tenderness to palpation present (GI) (Epigastric), No Guarding due to palpation present (GI), No Rigid due to palpation and Yes No hepatosplenomegaly present RECTAL EXAM: deferred Extremity: COMMON NORMALS: normal to inspection and full ROM Neuro: COMMON NORMALS: patient oriented x3, moves all extremities, no focal motor deficits and no sensory deficits noted SENSORIUM/ORIENTATION: Yes alert MENINGEAL SIGNS: Yes no meningeal signs Psych: COMMON NORMALS: mental status grossly normal, cooperative and speech normal SPEECH: Yes normal speech Skin: COMMON NORMALS: no rashes or lesions noted GENERAL SKIN EXAM: no rashes or lesions noted Course 2 Vital Signs: Vital signs: Vital Signs Temperature 97.9 F 07/09/24 19:42 Pulse Rate 80 07/09/24 19:42 Respiratory Rate 17 07/09/24 22:03 Blood Pressure 113/60 07/09/24 19:42 Pulse Oximetry 94 07/09/24 22:03 Oxygen Delivery Me thod Room Air 07/09/24 19:42 MDM - Abdominal Pain Medical Decision Making Patient well-known here to the emergency department, specifically stated that she was having continued abdominal pain that has been chronic. Has upcoming appoint with GI in [place]. Comparing her prior blood work, white blood cell count had continued increased up to 21.6. Because of this obtain chest x- ray, and abdominal pelvis CT to identify any source of potential infection. Both of these images were negative. No signs of infection on urinalysis, and the rest of her blood work was normal including unremarkable CRP when compared to prior. Patient notes complete cessation of pain and nausea after receiving Dilaudid and Zofran here. Informed her to keep follow-up and return with any new or worsening. Discussed this case with Dr. Gee, agrees with disposition. Lab Data 07/09/24 20:20 07/09/24 20:20 Labs/Radiology: Radiology Impressions Abdomen/Pelvis CT 07/09/24 20:47 IMPRESSION: 1. No acute intra-abdominal or pelvic process. 2. Other nonemergent findings above. Chest X-Ray 07/09/24 21:36 IMPRESSION: No acute cardiopulmonary disease. Laboratory Results WBC 21.61 10^3/uL (3.29-11.43) H 07/09/24 20:20 RBC 4.02 10^6/uL (3.85-5.65) 07/09/24 20:20 Hgb 13.40 g/dL (11.27-16.99) 07/09/24 20:20 Hct 39.8 % (36-47) 07/09/24 20:20 MCV 99.0 fl (85-98) H 07/09/24 20:20 MCH 33.3 pg (27-33) H 07/09/24 20:20 MCHC 33.7 g/dL (30-55) 07/09/24 20:20 RDW 13.8 % (12.1-15.1) 07/09/24 20:20 Plt Count 241 10^3/cmm (157-399) 07/09/24 20:20 MPV 9.6 fL (7.4-10.4) 07/09/24 20:20 Neut % (Auto) 71.5 % 07/09/24 20:20 Lymph % (Auto) 18.1 % 07/09/24 20:20 Travis % (Auto) 7.4 % 07/09/24 20:20 Eos % (Auto) 1.8 % 07/09/24 20:20 Baso % (Auto) 0.6 % 07/09/24 20:20 Neut # (Auto) 15.47 10^3/uL (1.8-7.7) H 07/09/24 20:20 Lymph # (Auto) 3.9 10^3/uL (0.8-4.8) 07/09/24 20:20 Travis # (Auto) 1.6 10^3/uL (0.2-0.9) H 07/09/24 20:20 Eos # (Auto) 0.4 10^3/uL (0.0-0.8) 07/09/24 20:20 Baso # (Auto) 0.1 10^3/uL (0.0-0.1) 07/09/24 20:20 Nucleated RBC % (auto) 0 % 07/09/24 20:20 Nucleated RBCs # 0.0 /100WBC 07/09/24 20:20 Sodium 138 mmol/L (136-145) 07/09/24 20:20 Potassium 4.1 mmol/L (3.5-5.1) 07/09/24 20:20 Chloride 104 mmol/L (98-107) 07/09/24 20:20 Carbon Dioxide 24 mmol/L (22-29) 07/09/24 20:20 Anion Gap 14.1 (5-19) 07/09/24 20:20 BUN 17 mg/dL (6-20) 07/09/24 20:20 Creatinine 0.8 mg/dL (0.5-0.9) 07/09/24 20:20 GFR Calculation 74.2 mL/min (90-130) L 07/09/24 20:20 Glucose 94 mg/dL (65-115) 07/09/24 20:20 Calculated Osmolality 287 mOsm/kg (285-295) 07/09/24 20:20 Calcium 9.2 mg/dL (8.5-10.5) 07/09/24 20:20 Total Bilirubin 0.2 mg/dL (0.15-1.2) 07/09/24 20:20 AST 15 U/L (0-32) 07/09/24 20:20 ALT 20 U/L (0-33) 07/09/24 20:20 Alkaline Phosphatase 123 U/L (35-105) H 07/09/24 20:20 C-Reactive Protein 15.1 mg/L (0.0-4.9) H 07/09/24 20:20 Total Protein 6.6 g/dL (6.6-8.7) 07/09/24 20:20 Albumin 3.8 g/dL (3.5-5.2) 07/09/24 20:20 Globulin 2.8 g/dL (1.3-4.6) 07/09/24 20:20 Lipase 28 U/L (13-60) 07/09/24 20:20 Urine Color Yellow (Yellow) 07/09/24:28 Urine Appearance Clear (CLEAR) 07/09/24 20:28 Urine pH 7.5 (5-7) 07/09/24 20:28 Ur Specific [place] 1.007 (1.005-1.030) 07/09/24 20:28 Urine Protein Negative (Negative) 07/09/24:28 Urine Glucose (UA) Negative (Normal) 07/09/24 20:28 Urine Ketones Negative (Negative) 07/09/24 20: Urine Blood Negative (Negative) 07/09/24 20: Urine Nitrate Negative (Negative) 07/09/24 20:28 Urine Bilirubin Negative (Negative) 07/09/24 20: Urine Urobilinogen 0.2 mg/dL (Negative) 07/09/24 20: Ur Leukocyte Esterase Negative (Negative) 07/09/24 20: Urine RBC 0-2 /hpf (0-2) 07/09/24 20:28 Urine WBC 0-5 /hpf (0-5) 07/09/24 20:28 Ur Squamous Epith Cells 0-5 /hpf (0-5) 07/09/24 20: Amorphous Sediment Not Reportable 07/09/24 20: Urine Bacteria None seen /hpf (NONE) 07/09/24 20: Hyaline Casts 0-4 /lpf H 07/09/24 20:28 All radiology interpretation(s) finalized by discharge Discharge Plan Discharge Patient Disposition: Home Clinical Impression: Chronic abdominal pain, Leukocytosis, unspecified Condition: Stable Prescriptions: No Action promethazine 25 mg suppository 25 mg RI Q6H PRN pantoprazole 40 mg tablet,delayed release (DR/EC) 40 mg PO BID (DME) SOLE Supports See Rx Instructions .Route .MEDSUPPLY Qty: 1 0RF Rx Instructions: As directed PRE-Auth prednisolone acetate 1 % drops,suspension ophthalmic (eye) lubiprostone 8 mcg capsule PO fluticasone propionate [Flonase Allergy Relief] 50 mcg/actuation spray,suspension 1 spray intranasal DAILY PRN (Reason: nasal congestion) 30 Days Qty: 16 2RF Rx Instructions: administer into each nostril dicyclomine 10 mg capsule 10 mg PO BID PRN ondansetron HCl 4 mg tablet 4 mg PO Q8H sucralfate [Carafate] 1 gram tablet 1 g PO QID polyethylene glycol 3350 [Miralax] 17 gram/dose powder 4 g PO DAILY lamotrigine 200 mg tablet 200 mg PO DAILY@06 Qty: 30 2RF Rx Instructions: Take one tablet by mouth every morning quetiapine 50 mg tablet 50 mg PO BID Qty: 60 2RF Rx Instructions: Take one tablet by mouth every morning and at bedtime quetiapine 25 mg tablet 25 mg PO BID PRN (Reason: agitation) Qty: 60 2RF Rx Instructions: Take one tablet up to twice a day, if needed, for agitation trazodone 300 mg tablet 300 mg PO .q hs PRN (Reason: sleep) Qty: 30 2RF Rx Instructions: Take one tablet daily at bedtime, if needed for sleep Trintellix 20 mg tablet 20 mg PO .q am Qty: 30 2RF Rx Instructions: Take one tablet once daily nystatin 100,000 unit/gram powder 1 applic topical BID Qty: 30 0RF Rx Instructions: apply locally to B/L groin folds albuterol sulfate 90 mcg/actuation HFA aerosol inhaler See Rx Instructions .ROUTE .COMPLEX Qty: 8.5 0RF Dose Instruction: INHALE 2 PUFFS BY MOUTH EVERY 6 HOURS NEEDED FOR SHORTNESS OF BREATH OR WHEEZING Rx Instructions: INHALE 2 PUFFS BY MOUTH EVERY 6 HOURS NEEDED FOR SHORTNESS OF BREATH OR WHEEZING acetaminophen 500 mg Tablet 1,000 mg PO Q6H PRN (Reason: Pain) diclofenac sodium 50 mg tablet,delayed release (DR/EC) 50 mg PO BID PRN (Reason: pain) Qty: 14 0RF ondansetron 4 mg tablet,disintegrating 4 mg PO Q8H PRN (Reason: nausea and vomiting) Qty: 10 0RF Discharge Orders: Discharge ED (Routine); Ordered 07/09/24 Ordered By: Edgar Brown Referrals: Dara Tavera, ADULT SPECIALIST [Primary Care Provider] - Patient Instructions: Abdominal Pain (ED), Opioid Safety, Pain Management Activity Restrictions/Additional Instructions: Follow-up with GI as planned. Continue taking home medications. Return with any new or worsening. Coding Level of Care Code ED Internal Grinder for Shellie Guallpa
[2024-07-09] MEDS: HYDROmorphone 1 mg/mL INJ 1 mL IVP ×2 (20:35→22:03)
[2024-07-09] MEDS: ondansetron 2 mg/ML SDV 2 mL 4 MG IVP (20:35)
[2024-07-09 20:39] LABS: Basophils # 0.1 10^3/uL (0.0-0.1); Basophils % 0.6 %; Eosinophils # 0.4 10^3/uL (0.0-0.8); Eosinophils % 1.8 %; Hematocrit 39.8 % (36-47); Lymphocytes # 3.9 10^3/uL (0.8-4.8); Lymphocytes % 18.1 %; Mean Corpuscular HGB Conc 33.7 g/dL (30-55); Mean Corpuscular Hemoglobin 33.3 pg (27-33); Mean Platelet Volume 9.6 fL (7.4-10.4); Monocytes # 1.6 10^3/uL (0.2-0.9); Monocytes % 7.4 %; Neutrophils # 15.47 10^3/uL (1.8-7.7); Neutrophils % 71.5 %; Nucleated Red Blood Cells % 0 %; Platelet Count 241 10^3/cmm (157-399); Red Blood Count 4.02 10^6/uL (3.85-5.65); Red Cell Distribution Width 13.8 % (12.1-15.1); White Blood Count 21.61 10^3/uL (3.29-11.43)
--- NOTE | 2024-07-09 20:47 | CTR_ITS ---
PROCEDURE INFORMATION: Exam: CT Abdomen And Pelvis With Contrast Exam date and time: 07/09/2024 9:03 PM Age: 58 years old Clinical indication: Abdominal pain; Epigastric; Prior surgery; Surgery date: 6+ months; Surgery type: Gb, appy, hysterectomy; Additional info: Epigastric abd pain, elevated wbc TECHNIQUE: Imaging protocol: Computed tomography of the abdomen and pelvis with contrast. Radiation optimization: All CT scans at this facility use at least one of these dose optimization techniques: automated exposure control; mA and/or kV adjustment per patient size (includes targeted exams where dose is matched to clinical indication); or iterative reconstruction. Contrast material: OMNIPAQUE 350; Contrast volume: 100 ml; Contrast route: INTRAVENOUS (IV); COMPARISON: CT abdomen pelvis w con* [id number] 12/02/2022 2:25 AM RADIATION DOSE METRICS: Total DLP (mGy-cm): 594.77 FINDINGS: Lungs: The lung bases are clear. Heart: Heart size is within normal limits. There is no pericardial effusion or pericardial thickening. Liver: The liver is normal. No hepatic masses are identified. Gallbladder and biliary ducts: The gallbladder is surgically absent. There is no ductal dilatation. Pancreas: The pancreas is normal. Spleen: The spleen is normal. Adrenal glands: The adrenal glands are normal. Kidneys and ureters: Stable nonobstructing 4 mm mid renal calcification. No other renal calculi. No hydronephrosis. Stomach and bowel: Moderate retained colonic stool. There is no large or small bowel obstruction. There is no evidence of bowel wall thickening. Appendix: A normal appendix is not identified. There is no secondary evidence of acute appendicitis. Intraperitoneal space: No inflammatory changes are identified. There is no free fluid or fluid collection seen. There is no pneumoperitoneum. Vasculature: Atherosclerotic calcifications of the aorta are present. No aneurysm is identified. Lymph nodes: No enlarged lymph nodes are identified. Urinary bladder: The bladder is unremarkable. Reproductive: The uterus is absent. Bones/joints: No acute osseous abnormalities are seen. Soft tissues: Evidence of left inguinal hernia repair. The soft tissues are within normal limits. CT/CT abdomen pelvis w con* [id number] IMPRESSION: 1. No acute intra-abdominal or pelvic process. 2. Other nonemergent findings above.
[2024-07-09 20:59] LABS: Alanine Aminotransferase 20 U/L (0-33); Albumin Level 3.8 g/dL (3.5-5.2); Alkaline Phosphatase 123 U/L (35-105); Aspartate Amino Transferase 15 U/L (0-32); Blood Urea Nitrogen 17 mg/dL (6-20); C Reactive Protein 15.1 mg/L (0.0-4.9); Calcium 9.2 mg/dL (8.5-10.5); Carbon Dioxide 24 mmol/L (22-29); Chloride 104 mmol/L (98-107); Creatinine Clr Calc Pharmacy 73.0219; Globulin 2.8 g/dL (1.3-4.6); Glomerular Filtration Rate 74.2 mL/min (90-130); Glucose 94 mg/dL (65-115); Lipase 28 U/L (13-60); Osmolality Calculated 287 mOsm/kg (285-295); Sodium 138 mmol/L (136-145); Total Bilirubin 0.2 mg/dL (0.15-1.2); Total Protein 6.6 g/dL (6.6-8.7)
[2024-07-09 21:03] LABS: Anion Gap 14.1 (5-19); Potassium 4.1 mmol/L (3.5-5.1)
[2024-07-09] MEDS: iohexol 350 mg/mL 500 mL Btl (per mL) IV (21:04)
--- NOTE | 2024-07-09 21:36 | XRR_ITS ---
PROCEDURE INFORMATION: Exam: XR Chest Exam date and time: 07/09/2024 9:40 PM Age: 58 years old Clinical indication: Other: Epigastric pain; Additional info: Epigastric pain, elevated wbc TECHNIQUE: Imaging protocol: Radiologic exam of the chest. Views: 1 view. COMPARISON: CR (CHEST, ) 06/26/2024 12:29 AM FINDINGS: Lungs: No pulmonary consolidation. Pleural spaces: No pleural effusion or pneumothorax. Heart/Mediastinum: The cardiomediastinal silhouette is within normal limits. Bones/joints: No acute osseous abnormalities are seen. XR/XR chest 1V portable [id number] IMPRESSION: No acute cardiopulmonary disease.
[2024-07-09 22:21] LABS: Bilirubin Urine Negative (Negative); Blood Urine Negative (Negative); Glucose Urine UA Negative (Normal); Ketones Urine Negative (Negative); Leukocyte Esterase Urine Negative (Negative); Nitrate Urine Negative (Negative); Protein Urine Negative (Negative); Specific Gravity, Urine 1.007 (1.005-1.030); Urine Appearance Clear (CLEAR); Urine Color Yellow (Yellow); Urobilinogen Urine 0.2 mg/dL (Negative); pH Urine 7.5 (5-7)
[2024-07-09 22:23] LABS: Add Urine Microscopic? YES; Bacteria Urine None Seen /hpf; Hyaline Casts Urine 0-4 /lpf; RBC Urine 0-2 /hpf (0-2); Squamous Epithelial Cell Urine 0-5 /hpf (0-5); WBC Urine 0-5 /hpf (0-5)
== END 2024-07-09 23:02 | disposition home or self-care (01) ==
PROVIDERS: Emergency Medicine; Emergency Provider Physician Assistant; PCP Registered Nurse
DX: R10.9 Unspecified abdominal pain (principal); D72.829 Elevated white blood cell count, unspecified; F17.210 Nicotine dependence, cigarettes, uncomplicated; J44.9 Chronic obstructive pulmonary disease, unspecified
CPT/HCPCS: 36415; 71045; 74177; 80053; 81001; 83690; 85025; 86140; 96374; 96375; 96376; 99285; J1171; J2405

== ENCOUNTER 2024-07-14 19:49 | Emergency (ER) | payer MEDICARE, MEDICAID, SELFPAY ==
[2024-07-14 20:04] VITALS: BP 108/73; PULSE 81; RESP 18; TEMP 36.4; O2SAT 98
[2024-07-14 21:22] LABS: Basophils # 0.1 10^3/uL (0.0-0.1); Basophils % 0.8 %; Eosinophils # 0.3 10^3/uL (0.0-0.8); Eosinophils % 2.3 %; Hematocrit 42.3 % (36-47); Lymphocytes # 3.1 10^3/uL (0.8-4.8); Lymphocytes % 20.7 %; Mean Corpuscular HGB Conc 32.2 g/dL (30-55); Mean Corpuscular Hemoglobin 33.2 pg (27-33); Mean Corpuscular Volume 103.2 fl (85-98); Mean Platelet Volume 9.7 fL (7.4-10.4); Monocytes # 1.2 10^3/uL (0.2-0.9); Monocytes % 8.4 %; Neutrophils # 9.96 10^3/uL (1.8-7.7); Neutrophils % 67.4 %; Nucleated Red Blood Cells % 0 %; Platelet Count 209 10^3/cmm (157-399); Red Cell Distribution Width 13.5 % (12.1-15.1); White Blood Count 14.78 10^3/uL (3.29-11.43)
[2024-07-14 21:40] LABS: Alanine Aminotransferase 17 U/L (0-33); Albumin Level 3.9 g/dL (3.5-5.2); Alkaline Phosphatase 141 U/L (35-105); Anion Gap 17.8 (5-19); Aspartate Amino Transferase 14 U/L (0-32); Blood Urea Nitrogen 17 mg/dL (6-20); Calcium 8.9 mg/dL (8.5-10.5); Carbon Dioxide 20 mmol/L (22-29); Chloride 104 mmol/L (98-107); Creatinine Clr Calc Pharmacy 72.7973; Globulin 2.5 g/dL (1.3-4.6); Glomerular Filtration Rate 74.2 mL/min (90-130); Glucose 105 mg/dL (65-115); Osmolality Calculated 288 mOsm/kg (285-295); Potassium 3.8 mmol/L (3.5-5.1); Sodium 138 mmol/L (136-145); Total Bilirubin 0.2 mg/dL (0.15-1.2); Total Protein 6.4 g/dL (6.6-8.7)
[2024-07-15] VITALS (13 sets, daily range): BP systolic 106–125; BP diastolic 83–85; PULSE 68–84; RESP 18; O2SAT 91–100
--- NOTE | 2024-07-15 02:12 | W.ED.ABDPA2 ---
HPI - Abdominal Pain General: Chief Complaint: Abdominal Pain Stated Complaint: ABD Pain Time Seen by Provider: 07/15/24 01:13 History of Present Illness: 58-year-old female well-known to the emergency department service complaining of vomiting and periumbilical abdominal pain. This is a chronic complaint for her. She states that she became nauseated and vomited several times prior to her arrival. She states that she was here 5 days ago with similar complaints, given Dilaudid and Zofran at that point. She said that during episodes of nausea and vomiting at home, she had a 3 to 4-second syncopal episode before she woke up. She did not injure her head. Related Data Home Medications Medication Instructions Recorded Confirmed acetaminophen 500 mg tablet 1,000 mg PO Q6H PRN Pain 07/09/21 05/29/24 pantoprazole 40 mg tablet,delayed 40 mg PO BID 07/27/23 05/29/24 release promethazine 25 mg rectal 25 mg TX Q6H PRN 07/27/23 05/29/24 suppository ondansetron HCl 4 mg tablet 4 mg PO Q8H 01/22/24 05/29/24 lubiprostone 8 mcg capsule mcg PO 05/10/24 05/29/24 prednisolone acetate 1 % eye drp ophthalmic (eye) 05/10/24 05/29/24 drops,suspension dicyclomine 10 mg capsule 10 mg PO BID PRN 05/27/24 05/29/24 polyethylene glycol 3350 17 4 g PO DAILY 05/27/24 05/29/24 gram/dose oral powder (Miralax) sucralfate 1 gram tablet (Carafate) 1 g PO QID 05/27/24 05/29/24 Previous Rx's Medication Instructions Recorded nystatin 100,000 unit/gram topical 1 applic topical BID #30 grams 06/16/22 powder SOLE Supports #1 ea 01/01/24 fluticasone propionate 50 1 spray intranasal DAILY PRN nasal 05/10/24 mcg/actuation nasal congestion 30 days #16 grams spray,suspension (Flonase Allergy Relief) lamotrigine 200 mg tablet 200 mg PO DAILY@06 #30 tabs 05/27/24 quetiapine 25 mg tablet 25 mg PO BID PRN agitation #60 tabs 05/27/24 quetiapine 50 mg tablet 50 mg PO BID #60 tabs 05/27/24 trazodone 300 mg tablet 300 mg PO .q hs PRN sleep #30 tabs 05/27/24 vortioxetine 20 mg tablet 20 mg PO .q am #30 tabs 05/27/24 (Trintellix) diclofenac sodium 50 mg 50 mg PO BID PRN pain #14 tabs 06/26/24 tablet,delayed release ondansetron 4 mg disintegrating 4 mg PO Q8H PRN nausea and 06/26/24 tablet vomiting #10 tabs albuterol sulfate 90 mcg/actuation See Rx Instructions .Route 07/01/24 aerosol inhaler .COMPLEX #8.5 grams Allergies Allergy/AdvReac Type Severity Reaction Status Date / Time haloperidol [From Haldol] Allergy Severe unknown Verified 07/09/24 19:45 Penicillins Allergy Severe ALGY-Anaphy Verified 07/09/24 19:45 laxis sulfamethoxazole Allergy Severe ALGY-Hives Verified 07/09/24 19:45 [From Bactrim] Tetracyclines Allergy Severe ALGY-Hives Verified 07/09/24 19:45 gabapentin [From Neurontin] Allergy Intermediate ADR-Halluci Verified 07/09/24 19:45 nating ketorolac [From Toradol] Allergy Intermediate ALGY-Rash Verified 07/09/24 19:45 lithium Allergy Intermediate ADR-Halluci Verified 07/09/24 19:45 nating fentanyl Allergy Mild rash Verified 07/09/24 19:45 adhesive tape Allergy Rash Verified 07/09/24 19:45 codeine Allergy GI Verified 07/09/24 19:45 duloxetine [From Cymbalta] Allergy ALGY-Rash Verified 07/09/24 19:45 fluoxetine Allergy ADR-Migrain Verified 07/09/24 19:45 e metoclopramide [From Reglan] Allergy ADR-Shakine Verified 07/09/24 19:45 ss nitroglycerin Allergy ADV-Weaknes Verified 07/09/24 19:45 s tramadol Allergy Unknown Verified 07/09/24 19:45 trimethoprim [From Bactrim] Allergy ALGY-Hives Verified 07/09/24 19:45 ziprasidone [From Geodon] AdvReac Severe ADR-Halluci Verified 07/09/24 19:45 nating risperidone [From Risperdal] AdvReac ADR-Halluci Verified 07/09/24 19:45 nating [facility] PFS: Medical History Insomnia Tobacco use disorder Opioid dependence, uncomplicated Cannabis dependence, uncomplicated Psychiatric care Tardive dyskinesia Esophageal stricture Cystitis cystica Chronic gastritis without bleeding Restrictive lung disease Chronic back pain greater than 3 months duration Borderline personality disorder Schizoaffective disorder, bipolar type Urgency incontinence Neurogenic bladder Dysphagia COPD (chronic obstructive pulmonary disease) GERD without esophagitis Foreign body in bladder Bladder stone Chronic anxiety Surgical History H/O bladder repair surgery MESH REPAIR H/O esophagogastroduodenoscopy (09/21/20) H/O colonoscopy with polypectomy History of foot surgery sx in 2009. Screws placed by Dr. Don. S/P bronchoscopy with biopsy History of ureter stent History of breast biopsy Hx of cholecystectomy H/O: hysterectomy History of appendectomy Family History Mother No problems noted. Father No problems noted. Other Asthma Cancer Diabetes Heart disease Social History Smoking and tobacco/nicotine status: current every day tobacco/nicotine user cigarettes Packs smoked per day: 1 Years cigarettes smoked: 20 [ Other cigarette details: Hx of 1 PPD x 20 Years, started at age 27] Quit status (tobacco/nicotine): considering quitting Second hand smoke exposure: Yes Alcohol intake: never Substance/Drug Use: former Lives independently: Yes Household members: spouse Marital status: Number of children: 3 Current occupational status: disabled Do you think of yourself as: Straight/Heterosexual Current gender identity: Female Physical Exam Const: COMMON NORMALS: no acute distress GENERAL APPEARANCE: cooperative; not ill appearing and not frail appearing HENMT: COMMON NORMALS: normocephalic, atraumatic and Normal external nose present HEAD & SCALP: normocephalic and atraumatic FACE & SINUS: normal facial exam and face symmetric NOSE: Normal external nose present Eye: COMMON NORMALS: Equal, round and reactive pupils present and EOMs intact bilaterally PUPIL: Yes Equal, round and reactive pupils present Neck/C-Spine: GENERAL: Yes trachea midline Chest: CHEST: Yes Symmetrical chest wall rise Resp: COMMON NORMALS: normal respiratory effort, No retractions, No use of accessory muscles and clear to auscultation bilaterally AUSCULTATION: clear to auscultation bilaterally Cardio: COMMON NORMALS: regular rate and regular rhythm RATE: regular rate RHYTHM: regular rhythm GI: COMMON NORMALS: Normal to inspection, nondistended, normoactive bowel sounds present OTHER: Exquisitely tender to nondistracted palpation. Extremity: COMMON NORMALS: no pedal edema Neuro: JEANINE COMA SCALE: document GCS findings Jeanine coma scale eye opening: Spontaneous Jeanine coma scale verbal response: Orientated [place] coma scale motor response: [place] commands [place] coma scale total score: 15 SENSORY EXAM: Yes extremities (intact) Psych: COMMON NORMALS: speech normal SPEECH: Yes normal speech Skin: COMMON NORMALS: no rashes or lesions noted GENERAL SKIN EXAM: no rashes or lesions noted Course Vital Signs: Vital signs: Vital Signs Temperature 97.6 F 07/14/24 20:04 Pulse Rate 84 07/15/24 04:30 Respiratory Rate 18 07/15/24 04:07 Blood Pressure 118/83 07/15/24 04:07 Pulse Oximetry 93 07/15/24 04:30 Oxygen Delivery Me thod Room Air 07/15/24 02:30 MDM - Abdominal Pain Medical Decision Making Chronic abdominal pain 58-year-old female. White blood cell count is down to 15 from 21. Her bicarbonate level however is 20. She is given IV fluid, pain medication and antiemetic. She is feeling improved. She will be allowed discharge. Lab Data 07/14/24 21:04 07/14/24 21:04 Labs/Radiology: Laboratory Results WBC 14.78 10^3/uL (3.29-11.43) H 07/14/24 21:04 RBC 4.10 10^6/uL (3.85-5.65) 07/14/24 21:04 Hgb 13.60 g/dL (11.27-16.99) 07/14/24 21:04 Hct 42.3 % (36-47) 07/14/24 21:04 MCV 103.2 fl (85-98) H 07/14/24 21:04 MCH 33.2 pg (27-33) H 07/14/24 21:04 MCHC 32.2 g/dL (30-55) 07/14/24 21:04 RDW 13.5 % (12.1-15.1) 07/14/24 21:04 Plt Count 209 10^3/cmm (157-399) 07/14/24 21:04 MPV 9.7 fL (7.4-10.4) 07/14/24 21:04 Neut % (Auto) 67.4 % 07/14/24 21:04 Lymph % (Auto) 20.7 % 07/14/24 21:04 [place] % (Auto) 8.4 % 07/14/24 21:04 Eos % (Auto) 2.3 % 07/14/24 21:04 Baso % (Auto) 0.8 % 07/14/24 21:04 Neut # (Auto) 9.96 10^3/uL (1.8-7.7) H 07/14/24 21:04 Lymph # (Auto) 3.1 10^3/uL (0.8-4.8) 07/14/24 21:04 [place] # (Auto) 1.2 10^3/uL (0.2-0.9) H 07/14/24 21:04 Eos # (Auto) 0.3 10^3/uL (0.0-0.8) 07/14/24 21:04 Baso # (Auto) 0.1 10^3/uL (0.0-0.1) 07/14/24 21:04 Nucleated RBC % (auto) 0 % 07/14/24 21:04 Nucleated RBCs # 0.0 /100WBC 07/14/24 21:04 Sodium 138 mmol/L (136-145) 07/14/24 21:04 Potassium 3.8 mmol/L (3.5-5.1) 07/14/24 21:04 Chloride 104 mmol/L (98-107) 07/14/24 21:04 Carbon Dioxide 20 mmol/L (22-29) L 07/14/24 21:04 Anion Gap 17.8 (5-19) 07/14/24 21:04 BUN 17 mg/dL (6-20) 07/14/24 21:04 Creatinine 0.8 mg/dL (0.5-0.9) 07/14/24 21:04 GFR Calculation 74.2 mL/min (90-130) L 07/14/24 21:04 Glucose 105 mg/dL (65-115) 07/14/24 21:04 Calculated Osmolality 288 mOsm/kg (285-295) 07/14/24 21:04 Calcium 8.9 mg/dL (8.5-10.5) 07/14/24 21:04 Total Bilirubin 0.2 mg/dL (0.15-1.2) 07/14/24 21:04 AST 14 U/L (0-32) 07/14/24 21:04 ALT 17 U/L (0-33) 07/14/24 21:04 Alkaline Phosphatase 141 U/L (35-105) H 07/14/24 21:04 Total Protein 6.4 g/dL (6.6-8.7) L 07/14/24 21:04 Albumin 3.9 g/dL (3.5-5.2) 07/14/24 21:04 Globulin 2.5 g/dL (1.3-4.6) 07/14/24 21:04 No radiology studies performed this visit Discharge Plan Discharge Patient Disposition: Home Clinical Impression: Chronic nausea, Chronic abdominal pain Condition: Stable Prescriptions: No Action promethazine 25 mg suppository 25 mg TX Q6H PRN pantoprazole 40 mg tablet,delayed release (DR/EC) 40 mg PO BID (DME) SOLE Supports See Rx Instructions .Route .MEDSUPPLY Qty: 1 0RF Rx Instructions: As directed PRE-Auth prednisolone acetate 1 % drops,suspension ophthalmic (eye) lubiprostone 8 mcg capsule PO fluticasone propionate [Flonase Allergy Relief] 50 mcg/actuation spray,suspension 1 spray intranasal DAILY PRN (Reason: nasal congestion) 30 Days Qty: 16 2RF Rx Instructions: administer into each nostril dicyclomine 10 mg capsule 10 mg PO BID PRN ondansetron HCl 4 mg tablet 4 mg PO Q8H sucralfate [Carafate] 1 gram tablet 1 g PO QID polyethylene glycol 3350 [Miralax] 17 gram/dose powder 4 g PO DAILY lamotrigine 200 mg tablet 200 mg PO DAILY@06 Qty: 30 2RF Rx Instructions: Take one tablet by mouth every morning quetiapine 50 mg tablet 50 mg PO BID Qty: 60 2RF Rx Instructions: Take one tablet by mouth every morning and at bedtime quetiapine 25 mg tablet 25 mg PO BID PRN (Reason: agitation) Qty: 60 2RF Rx Instructions: Take one tablet up to twice a day, if needed, for agitation trazodone 300 mg tablet 300 mg PO .q hs PRN (Reason: sleep) Qty: 30 2RF Rx Instructions: Take one tablet daily at bedtime, if needed for sleep Trintellix 20 mg tablet 20 mg PO .q am Qty: 30 2RF Rx Instructions: Take one tablet once daily nystatin 100,000 unit/gram powder 1 applic topical BID Qty: 30 0RF Rx Instructions: apply locally to B/L groin folds albuterol sulfate 90 mcg/actuation HFA aerosol inhaler See Rx Instructions .ROUTE .COMPLEX Qty: 8.5 0RF Dose Instruction: INHALE 2 PUFFS BY MOUTH EVERY 6 HOURS NEEDED FOR SHORTNESS OF BREATH OR WHEEZING Rx Instructions: INHALE 2 PUFFS BY MOUTH EVERY 6 HOURS NEEDED FOR SHORTNESS OF BREATH OR WHEEZING acetaminophen 500 mg Tablet 1,000 mg PO Q6H PRN (Reason: Pain) diclofenac sodium 50 mg tablet,delayed release (DR/EC) 50 mg PO BID PRN (Reason: pain) Qty: 14 0RF ondansetron 4 mg tablet,disintegrating 4 mg PO Q8H PRN (Reason: nausea and vomiting) Qty: 10 0RF Discharge Orders: Discharge ED (Routine); Ordered 07/15/24 Ordered By: Chivo Deleon Referrals: Dara Tavera, ENTRY TECH [Primary Care Provider] - 1-3 days Patient Instructions: Abdominal Pain (ED), Opioid Safety, Pain Management Activity Restrictions/Additional Instructions: Call your doctor later today. Return for worsening symptoms. Coding Level of Care Code ED Workers Compensation Claims Specialist for Shellie Guallpa
[2024-07-15] MEDS: ondansetron 2 mg/ML SDV 2 mL 4 MG IVP (03:24)
[2024-07-15] MEDS: famotidine 20 mg/2 mL INJ IVP (03:26)
[2024-07-15] MEDS: HYDROmorphone 1 mg/mL INJ 1 mL IVP (03:26)
[2024-07-15] MEDS: lidocaine 2% viscous 15 ML, aluminum-mag hydrox-simethicon 30 ML, sucralfate oral liq 1 GM PO (03:28)
[2024-07-15] MEDS: sodium chloride 0.9% 500 ML 999 ML IV (03:29)
== END 2024-07-15 04:24 | disposition home or self-care (01) ==
PROVIDERS: Emergency Provider Emergency Medicine; PCP Registered Nurse
DX: R11.0 Nausea (principal); R10.9 Unspecified abdominal pain; F17.210 Nicotine dependence, cigarettes, uncomplicated; J44.9 Chronic obstructive pulmonary disease, unspecified
CPT/HCPCS: 36415; 80053; 85025; 96374; 96375; 99284; J1171; J2405; J3490; J7040

== ENCOUNTER → 2024-07-17 10:01 | Outpatient (BNVA) | payer MEDICARE, MEDICAID, SELFPAY | PROVIDERS: PCP Registered Nurse; Visit Provider Specialist | DX: M16.11 Unilateral primary osteoarthritis, right hip | CPT/HCPCS: 73502; 99204 ==

== ENCOUNTER 2024-07-22 19:07 | Emergency (ER) | payer MEDICARE, MEDICAID, SELFPAY ==
[2024-07-22 19:23] VITALS: PULSE 86; RESP 16; TEMP 37; O2SAT 96
[2024-07-22 19:49] VITALS: BP 109/87; PULSE 80; O2SAT 93
[2024-07-22 20:04] LABS: Basophils # 0.1 10^3/uL (0.0-0.1); Basophils % 0.5 %; Eosinophils # 0.3 10^3/uL (0.0-0.8); Eosinophils % 1.7 %; Hematocrit 39.4 % (36-47); Lymphocytes # 2.7 10^3/uL (0.8-4.8); Lymphocytes % 16.3 %; Mean Corpuscular HGB Conc 33.2 g/dL (30-55); Mean Corpuscular Hemoglobin 32.9 pg (27-33); Mean Platelet Volume 10.1 fL (7.4-10.4); Monocytes # 1.3 10^3/uL (0.2-0.9); Monocytes % 7.8 %; Neutrophils # 12.17 10^3/uL (1.8-7.7); Neutrophils % 73.3 %; Nucleated Red Blood Cells % 0 %; Platelet Count 211 10^3/cmm (157-399); Red Blood Count 3.98 10^6/uL (3.85-5.65); Red Cell Distribution Width 13.2 % (12.1-15.1); White Blood Count 16.61 10^3/uL (3.29-11.43)
--- NOTE | 2024-07-22 20:07 | W.ED.ABDPA2 ---
HPI - Abdominal Pain General: Chief Complaint: Abdominal Pain Stated Complaint: abdomen pain Time Seen by Provider: 07/22/24 19:46 History of Present Illness: Patient presents to the ER today with stating her abdominal pain is out of control. This is her chronic pain there is no change other than severity. She says she had 3 episodes of diarrhea today and 7 episodes of vomiting even though she is on multiple medicines for each 1. She says she has appointment on Monday in 2 days with a GI doc in [place] and he is going to have to make a bunch of changes with her medicines. Patient then goes on and says we usually give her Dilaudid, Zofran, and fluids and it seems to work every time. Patient is lying in bed in no acute distress and does not appear toxic in any way. Related Data Home Medications Medication Instructions Recorded Confirmed acetaminophen 500 mg tablet 1,000 mg PO Q6H PRN Pain 07/09/21 07/17/24 pantoprazole 40 mg tablet,delayed 40 mg PO BID 07/27/23 07/17/24 release promethazine 25 mg rectal 25 mg MI Q6H PRN 07/27/23 07/17/24 suppository ondansetron HCl 4 mg tablet 4 mg PO Q8H 01/22/24 07/17/24 lubiprostone 8 mcg capsule mcg PO 05/10/24 07/17/24 prednisolone acetate 1 % eye drp ophthalmic (eye) 05/10/24 07/17/24 drops,suspension dicyclomine 10 mg capsule 10 mg PO BID PRN 05/27/24 07/17/24 polyethylene glycol 3350 17 4 g PO DAILY 05/27/24 07/17/24 gram/dose oral powder (Miralax) sucralfate 1 gram tablet (Carafate) 1 g PO QID 05/27/24 07/17/24 Previous Rx's Medication Instructions Recorded nystatin 100,000 unit/gram topical 1 applic topical BID #30 grams 06/16/22 powder SOLE Supports #1 ea 01/01/24 fluticasone propionate 50 1 spray intranasal DAILY PRN nasal 05/10/24 mcg/actuation nasal congestion 30 days #16 grams spray,suspension (Flonase Allergy Relief) lamotrigine 200 mg tablet 200 mg PO DAILY@06 #30 tabs 05/27/24 quetiapine 25 mg tablet 25 mg PO BID PRN agitation #60 tabs 05/27/24 quetiapine 50 mg tablet 50 mg PO BID #60 tabs 05/27/24 trazodone 300 mg tablet 300 mg PO .q hs PRN sleep #30 tabs 05/27/24 vortioxetine 20 mg tablet 20 mg PO .q am #30 tabs 05/27/24 (Trintellix) diclofenac sodium 50 mg 50 mg PO BID PRN pain #14 tabs 06/26/24 tablet,delayed release ondansetron 4 mg disintegrating 4 mg PO Q8H PRN nausea and 06/26/24 tablet vomiting #10 tabs albuterol sulfate 90 mcg/actuation See Rx Instructions .Route 07/22/24 aerosol inhaler .COMPLEX #9 grams Allergies Allergy/AdvReac Type Severity Reaction Status Date / Time haloperidol [From Haldol] Allergy Severe unknown Verified 07/22/24 19:26 Penicillins Allergy Severe ALGY-Anaphy Verified 07/22/24 19:26 laxis sulfamethoxazole Allergy Severe ALGY-Hives Verified 07/22/24 19:26 [From Bactrim] Tetracyclines Allergy Severe ALGY-Hives Verified 07/22/24 19:26 gabapentin [From Neurontin] Allergy Intermediate ADR-Halluci Verified 07/22/24 19:26 nating ketorolac [From Toradol] Allergy Intermediate ALGY-Rash Verified 07/22/24 19:26 lithium Allergy Intermediate ADR-Halluci Verified 07/22/24 19:26 nating fentanyl Allergy Mild rash Verified 07/22/24 19:26 adhesive tape Allergy Rash Verified 07/22/24 19:26 codeine Allergy GI Verified 07/22/24 19:26 duloxetine [From Cymbalta] Allergy ALGY-Rash Verified 07/22/24 19:26 fluoxetine Allergy ADR-Migrain Verified 07/22/24 19:26 e metoclopramide [From Reglan] Allergy ADR-Shakine Verified 07/22/24 19:26 ss nitroglycerin Allergy ADV-Weaknes Verified 07/22/24 19:26 s tramadol Allergy Unknown Verified 07/22/24 19:26 trimethoprim [From Bactrim] Allergy ALGY-Hives Verified 07/22/24 19:26 ziprasidone [From Geodon] AdvReac Severe ADR-Halluci Verified 07/22/24 19:26 nating risperidone [From Risperdal] AdvReac ADR-Halluci Verified 07/22/24 19:26 nating Review of Systems General: Reports: 10 or more systems reviewed and unremarkable except in HPI and below PFSH ED PFSH: Medical History Insomnia Tobacco use disorder Opioid dependence, uncomplicated Cannabis dependence, uncomplicated Psychiatric care Tardive dyskinesia Esophageal stricture Cystitis cystica Chronic gastritis without bleeding Restrictive lung disease Chronic back pain greater than 3 months duration Borderline personality disorder Schizoaffective disorder, bipolar type Urgency incontinence Neurogenic bladder Dysphagia COPD (chronic obstructive pulmonary disease) GERD without esophagitis Foreign body in bladder Bladder stone Chronic anxiety Surgical History H/O bladder repair surgery MESH REPAIR H/O esophagogastroduodenoscopy (09/21/20) H/O colonoscopy with polypectomy History of foot surgery sx in 2009. Screws placed by Dr. Don. S/P bronchoscopy with biopsy History of ureter stent History of breast biopsy Hx of cholecystectomy H/O: hysterectomy History of appendectomy Family History Mother No problems noted. Father No problems noted. Other Asthma Cancer Diabetes Heart disease Social History Smoking and tobacco/nicotine status: current every day tobacco/nicotine user cigarettes Packs smoked per day: 1 Years cigarettes smoked: 20 [ Other cigarette details: Hx of 1 PPD x 20 Years, started at age 27] Quit status (tobacco/nicotine): considering quitting Second hand smoke exposure: Yes Alcohol intake: never Substance/Drug Use: former Lives independently: Yes Household members: spouse Marital status: Number of children: 3 Current occupational status: disabled Do you think of yourself as: Straight/Heterosexual Current gender identity: Female Physical Exam Const: COMMON NORMALS: no acute distress, average body habitus, patient oriented x3, no limitations, healthy appearing, alert and well nourished HENMT: COMMON NORMALS: normocephalic, atraumatic, hearing grossly normal bilaterally, external ears normal, Normal external nose present and moist oral mucous membranes HEAD & SCALP: normocephalic and atraumatic NOSE: Normal external nose present EXTERNAL EAR: Yes external ears normal Neck/C-Spine: COMMON NORMALS: no JVD Chest: COMMONS NORMALS: normal inspection of the chest and normal palpation of entire chest wall Resp: COMMON NORMALS: normal respiratory effort, No retractions, No use of accessory muscles and clear to auscultation bilaterally AUSCULTATION: clear to auscultation bilaterally Cardio: COMMON NORMALS: no JVD, regular rate, regular rhythm, S1 normal heart sound present, S2 normal heart sound present, No gallops present (Cardio), No clicks present (Cardio), No murmurs present (Cardio) and No rub (Cardio) RATE: regular rate RHYTHM: regular rhythm HEART SOUNDS: S1 normal heart sound present and S2 normal heart sound present GI: COMMON NORMALS: Normal to inspection, nondistended, normoactive bowel sounds present, Soft to palpation, non-tender, No hepatosplenomegaly present and no masses PALPATION: Yes Soft to palpation and Yes No hepatosplenomegaly present Neuro: COMMON NORMALS: patient oriented x3 SENSORIUM/ORIENTATION: Yes alert Course Vital Signs: Vital signs: Vital Signs Temperature 98.6 F 07/22/24 19:23 Pulse Rate 86 07/22/24 19:23 Respiratory Rate 16 07/22/24 19:23 Pulse Oximetry 96 07/22/24 19:23 Oxygen Delivery Me thod Room Air 07/22/24 19:23 MDM - Abdominal Pain Medical Decision Making Lab work was obtained included a white count of 16, the last white count was about 14, 1 before that was about 21, patient chronically runs high. Otherwise the rest of her CBC CMP lipase and urinalysis are unremarkable. Patient was given additional 4 mg Zofran in the ER. She did not appear to be toxic or in any acute distress. She will be discharged home. When nursing tried to discharge patient she became very upset yelling and cussing and said she is never coming back to this place again because we never treat her right. I went in the room and told her that her lab work was normal, vital signs were normal, and she was sitting in her bed in no acute distress and not writhing in pain and she has a chronic abdominal pain condition that she already sees a primary care doctor and in a specialist for and she has an appointment with a specialist within 48 hours in the ER is not a place to come for chronic conditions. Let alone to continuously ask for narcotics by name, and said they are the only thing that works she then started yelling at me directly and act like she was going to hit me when she told me she was going to file a complaint against me and sherif me. That I will never be seeing her as a patient again. Medical Records I reviewed the patient's medical records. Lab Data I reviewed the patient's lab results. 07/22/24 19:56 07/22/24 19:56 Labs/Radiology: Laboratory Results WBC 16.61 10^3/uL (3.29-11.43) H 07/22/24 19:56 RBC 3.98 10^6/uL (3.85-5.65) 07/22/24 19:56 Hgb 13.10 g/dL (11.27-16.99) 07/22/24 19:56 Hct 39.4 % (36-47) 07/22/24 19:56 MCV 99.0 fl (85-98) H 07/22/24 19:56 MCH 32.9 pg (27-33) 07/22/24 19:56 MCHC 33.2 g/dL (30-55) 07/22/24 19:56 RDW 13.2 % (12.1-15.1) 07/22/24 19:56 Plt Count 211 10^3/cmm (157-399) 07/22/24 19:56 MPV 10.1 fL (7.4-10.4) 07/22/24 19:56 Neut % (Auto) 73.3 % 07/22/24 19:56 Lymph % (Auto) 16.3 % 07/22/24 19:56 [place] % (Auto) 7.8 % 07/22/24 19:56 Eos % (Auto) 1.7 % 07/22/24 19:56 Baso % (Auto) 0.5 % 07/22/24 19:56 Neut # (Auto) 12.17 10^3/uL (1.8-7.7) H 07/22/24 19:56 Lymph # (Auto) 2.7 10^3/uL (0.8-4.8) 07/22/24 19:56 [place] # (Auto) 1.3 10^3/uL (0.2-0.9) H 07/22/24 19:56 Eos # (Auto) 0.3 10^3/uL (0.0-0.8) 07/22/24 19:56 Baso # (Auto) 0.1 10^3/uL (0.0-0.1) 07/22/24 19:56 Nucleated RBC % (auto) 0 % 07/22/24 19:56 Nucleated RBCs # 0.0 /100WBC 07/22/24 19:56 Sodium 136 mmol/L (136-145) 07/22/24 19:56 Potassium 3.9 mmol/L (3.5-5.1) 07/22/24 19:56 Chloride 102 mmol/L (98-107) 07/22/24 19:56 Carbon Dioxide 23 mmol/L (22-29) 07/22/24 19:56 Anion Gap 14.9 (5-19) 07/22/24 19:56 BUN 14 mg/dL (6-20) 07/22/24 19:56 Creatinine 0.8 mg/dL (0.5-0.9) 07/22/24 19:56 GFR Calculation 74.2 mL/min (90-130) L 07/22/24 19:56 Glucose 101 mg/dL (65-115) 07/22/24 19:56 Calculated Osmolality 283 mOsm/kg (285-295) L 07/22/24 19:56 Calcium 9.5 mg/dL (8.5-10.5) 07/22/24 19:56 Total Bilirubin 0.2 mg/dL (0.15-1.2) 07/22/24 19:56 AST 16 U/L (0-32) 07/22/24 19:56 ALT 16 U/L (0-33) 07/22/24 19:56 Alkaline Phosphatase 127 U/L (35-105) H 07/22/24 19:56 Total Protein 6.8 g/dL (6.6-8.7) 07/22/24 19:56 Albumin 3.9 g/dL (3.5-5.2) 07/22/24 19:56 Globulin 2.9 g/dL (1.3-4.6) 07/22/24 19:56 Lipase 29 U/L (13-60) 07/22/24 19:56 Urine Color Yellow (Yellow) 07/22/24 19:56 Urine Appearance Clear (CLEAR) 07/22/24 19:56 Urine pH 6.0 (5-7) 07/22/24 19:56 Ur Specific [place] 1.006 (1.005-1.030) 07/22/24 19:56 Urine Protein Negative (Negative) 07/22/24 19:56 Urine Glucose (UA) Negative (Normal) 07/22/24 19:56 Urine Ketones Negative (Negative) 07/22/24 19:56 Urine Blood Negative (Negative) 07/22/24 19:56 Urine Nitrate Negative (Negative) 07/22/24 19:56 Urine Bilirubin Negative (Negative) 07/22/24 19:56 Urine Urobilinogen 0.2 mg/dL (Negative) 07/22/24 19:56 Ur Leukocyte Esterase Negative (Negative) 07/22/24 19:56 Urine RBC 0-2 /hpf (0-2) 07/22/24 19:56 Urine WBC 0-5 /hpf (0-5) 07/22/24 19:56 Ur Squamous Epith Cells 0-5 /hpf (0-5) 07/22/24 19:56 Amorphous Sediment Not Reportable 07/22/24 19:56 Urine Bacteria None seen /hpf (NONE) 07/22/24 19:56 Hyaline Casts 0-4 /lpf H 07/22/24 19:56 All radiology interpretation(s) finalized by discharge Discharge Plan Discharge Patient Disposition: Home Clinical Impression: Nausea vomiting and diarrhea Abdominal pain Qualifiers: Abdominal location: unspecified location Qualified Code(s): R10.9 - Unspecified abdominal pain Condition: Stable Prescriptions: No Action promethazine 25 mg suppository 25 mg MI Q6H PRN pantoprazole 40 mg tablet,delayed release (DR/EC) 40 mg PO BID (DME) SOLE Supports See Rx Instructions .Route .MEDSUPPLY Qty: 1 0RF Rx Instructions: As directed PRE-Auth prednisolone acetate 1 % drops,suspension ophthalmic (eye) lubiprostone 8 mcg capsule PO fluticasone propionate [Flonase Allergy Relief] 50 mcg/actuation spray,suspension 1 spray intranasal DAILY PRN (Reason: nasal congestion) 30 Days Qty: 16 2RF Rx Instructions: administer into each nostril dicyclomine 10 mg capsule 10 mg PO BID PRN ondansetron HCl 4 mg tablet 4 mg PO Q8H sucralfate [Carafate] 1 gram tablet 1 g PO QID polyethylene glycol 3350 [Miralax] 17 gram/dose powder 4 g PO DAILY lamotrigine 200 mg tablet 200 mg PO DAILY@06 Qty: 30 2RF Rx Instructions: Take one tablet by mouth every morning quetiapine 50 mg tablet 50 mg PO BID Qty: 60 2RF Rx Instructions: Take one tablet by mouth every morning and at bedtime quetiapine 25 mg tablet 25 mg PO BID PRN (Reason: agitation) Qty: 60 2RF Rx Instructions: Take one tablet up to twice a day, if needed, for agitation trazodone 300 mg tablet 300 mg PO .q hs PRN (Reason: sleep) Qty: 30 2RF Rx Instructions: Take one tablet daily at bedtime, if needed for sleep Trintellix 20 mg tablet 20 mg PO .q am Qty: 30 2RF Rx Instructions: Take one tablet once daily nystatin 100,000 unit/gram powder 1 applic topical BID Qty: 30 0RF Rx Instructions: apply locally to B/L groin folds albuterol sulfate 90 mcg/actuation HFA aerosol inhaler See Rx Instructions .ROUTE .COMPLEX Qty: 9 0RF Dose Instruction: INHALE 2 PUFFS BY MOUTH EVERY 6 HOURS NEEDED FOR SHORTNESS OF BREATH OR WHEEZING Rx Instructions: INHALE 2 PUFFS BY MOUTH EVERY 6 HOURS NEEDED FOR SHORTNESS OF BREATH OR WHEEZING acetaminophen 500 mg Tablet 1,000 mg PO Q6H PRN (Reason: Pain) diclofenac sodium 50 mg tablet,delayed release (DR/EC) 50 mg PO BID PRN (Reason: pain) Qty: 14 0RF ondansetron 4 mg tablet,disintegrating 4 mg PO Q8H PRN (Reason: nausea and vomiting) Qty: 10 0RF Discharge Orders: Discharge ED (Routine); Ordered 07/22/24 Ordered By: Colby Fisher Referrals: Dara Tavera, IT DESKTOP SUPPORT SPECIALIST [Primary Care Provider] - 1 week Patient Instructions: Acute Nausea and Vomiting (ED), Acute Diarrhea (ED), Abdominal Pain (ED) Activity Restrictions/Additional Instructions: Your lab work that included blood work and urinalysis was unremarkable. Your physical exam was unremarkable. Please follow-up with your family practice physician for further evaluation treatment. Please keep the appointment you stated you have with a gastrointestinal physician in [place] in 2 days. This will be the definitive evaluation and treatment you may have for this chronic condition. Coding Level of Care Code ED [employer] Processing Supervisor for Shellie Guallpa
[2024-07-22 20:15] VITALS: BP 113/67; PULSE 72; O2SAT 94
[2024-07-22 20:21] LABS: Alanine Aminotransferase 16 U/L (0-33); Albumin Level 3.9 g/dL (3.5-5.2); Alkaline Phosphatase 127 U/L (35-105); Anion Gap 14.9 (5-19); Aspartate Amino Transferase 16 U/L (0-32); Blood Urea Nitrogen 14 mg/dL (6-20); Calcium 9.5 mg/dL (8.5-10.5); Carbon Dioxide 23 mmol/L (22-29); Chloride 102 mmol/L (98-107); Creatinine Clr Calc Pharmacy 74.3715; Globulin 2.9 g/dL (1.3-4.6); Glomerular Filtration Rate 74.2 mL/min (90-130); Glucose 101 mg/dL (65-115); Lipase 29 U/L (13-60); Osmolality Calculated 283 mOsm/kg (285-295); Potassium 3.9 mmol/L (3.5-5.1); Sodium 136 mmol/L (136-145); Total Bilirubin 0.2 mg/dL (0.15-1.2); Total Protein 6.8 g/dL (6.6-8.7)
[2024-07-22 20:25] LABS: Bilirubin Urine Negative (Negative); Blood Urine Negative (Negative); Glucose Urine UA Negative (Normal); Ketones Urine Negative (Negative); Leukocyte Esterase Urine Negative (Negative); Nitrate Urine Negative (Negative); Protein Urine Negative (Negative); Specific Gravity, Urine 1.006 (1.005-1.030); Urine Appearance Clear (CLEAR); Urine Color Yellow (Yellow); Urobilinogen Urine 0.2 mg/dL (Negative)
[2024-07-22 20:28] LABS: Add Urine Microscopic? YES; Bacteria Urine None Seen /hpf; Hyaline Casts Urine 0-4 /lpf; RBC Urine 0-2 /hpf (0-2); Squamous Epithelial Cell Urine 0-5 /hpf (0-5); WBC Urine 0-5 /hpf (0-5)
[2024-07-22] MEDS: ondansetron 4 MG Tablet PO (20:51)
[2024-07-22 21:00] VITALS: BP 121/72; PULSE 77; O2SAT 94
--- NOTE | 2024-07-22 21:13 | PC.NURSE ---
Pt became escalated when MD did not order pain medications. MD educated pt to follow up with her speciality DR and PCP that she has chronic pain. Pt states she is going to file a report on him and slung her chair across the room and her discharge papers. Pt refused to sign discharge paperwork.
== END 2024-07-22 21:15 | disposition home or self-care (01) ==
PROVIDERS: Emergency Medicine; Emergency Provider Emergency Medicine; PCP Registered Nurse
DX: R11.2 Nausea with vomiting, unspecified (principal); R19.7 Diarrhea, unspecified; R10.9 Unspecified abdominal pain; F17.210 Nicotine dependence, cigarettes, uncomplicated; J44.9 Chronic obstructive pulmonary disease, unspecified
CPT/HCPCS: 80053; 81001; 83690; 85025; 99283; Q0162

== ENCOUNTER 2024-07-28 19:36 | Emergency (ER) | payer MEDICARE, MEDICAID, SELFPAY ==
[2024-07-28 19:42] VITALS: BP 105/75; PULSE 88; RESP 17; TEMP 36.4; O2SAT 94; BMI 25.6
--- NOTE | 2024-07-28 23:07 | W.ED.ABDPA2 ---
HPI - Abdominal Pain General: Chief Complaint: Abdominal Pain Stated Complaint: abd pain divaticulitis. n/v Time Seen by Provider: 07/28/24 22:46 History of Present Illness: 58-year-old female who is here quite often for abdominal pain. She presents with an exacerbation of her abdominal pain. She was evidently here with her ex- earlier, who was a patient. She checked in triage because she was hurting. She complains of pain and vomiting. She says that she was diagnosed with diverticulitis last week. She has been on ciprofloxacin and Flagyl since that time. Related Data Home Medications ?Medication ?Instructions ?Recorded ?Confirmed acetaminophen 500 mg tablet 1,000 mg PO Q6H PRN Pain 07/09/21 07/24/24 pantoprazole 40 mg tablet,delayed 40 mg PO BID 07/27/23 07/24/24 release promethazine 25 mg rectal 25 mg NJ Q6H PRN 07/27/23 07/24/24 suppository ondansetron HCl 4 mg tablet 4 mg PO Q8H 01/22/24 07/24/24 lubiprostone 8 mcg capsule mcg PO 05/10/24 07/24/24 prednisolone acetate 1 % eye drp ophthalmic (eye) 05/10/24 07/24/24 drops,suspension dicyclomine 10 mg capsule 10 mg PO BID PRN 05/27/24 07/24/24 polyethylene glycol 3350 17 4 g PO DAILY 05/27/24 07/24/24 gram/dose oral powder (Miralax) sucralfate 1 gram tablet (Carafate) 1 g PO QID 05/27/24 07/24/24 Previous Rx's ?Medication ?Instructions ?Recorded nystatin 100,000 unit/gram topical 1 applic topical BID #30 grams 06/16/22 powder SOLE Supports #1 ea 01/01/24 fluticasone propionate 50 1 spray intranasal DAILY PRN nasal 05/10/24 mcg/actuation nasal congestion 30 days #16 grams spray,suspension (Flonase Allergy Relief) lamotrigine 200 mg tablet 200 mg PO DAILY@06 #30 tabs 05/27/24 quetiapine 25 mg tablet 25 mg PO BID PRN agitation #60 tabs 05/27/24 quetiapine 50 mg tablet 50 mg PO BID #60 tabs 05/27/24 trazodone 300 mg tablet 300 mg PO .q hs PRN sleep #30 tabs 05/27/24 vortioxetine 20 mg tablet 20 mg PO .q am #30 tabs 05/27/24 (Trintellix) diclofenac sodium 50 mg 50 mg PO BID PRN pain #14 tabs 06/26/24 tablet,delayed release ondansetron 4 mg disintegrating 4 mg PO Q8H PRN nausea and 06/26/24 tablet vomiting #10 tabs albuterol sulfate 90 mcg/actuation See Rx Instructions .Route 07/22/24 aerosol inhaler .COMPLEX #9 grams clindamycin phosphate 1 % topical 1 applic topical BID 10 days #30 07/24/24 gel grams Allergies Allergy/AdvReac Type Severity Reaction Status Date / Time haloperidol (From Haldol) Allergy Severe unknown Verified 07/24/24 13:49 Penicillins Allergy Severe ALGY-Anaphy Verified 07/24/24 13:49 laxis sulfamethoxazole (From Allergy Severe ALGY-Hives Verified 07/24/24 13:49 Bactrim) Tetracyclines Allergy Severe ALGY-Hives Verified 07/24/24 13:49 gabapentin (From Neurontin) Allergy Intermediate ADR-Halluci Verified 07/24/24 13:49 nating ketorolac (From Toradol) Allergy Intermediate ALGY-Rash Verified 07/24/24 13:49 lithium Allergy Intermediate ADR-Halluci Verified 07/24/24 13:49 nating fentanyl Allergy Mild rash Verified 07/24/24 13:49 adhesive tape Allergy Rash Verified 07/24/24 13:49 codeine Allergy GI Verified 07/24/24 13:49 duloxetine (From Cymbalta) Allergy ALGY-Rash Verified 07/24/24 13:49 fluoxetine Allergy ADR-Migrain Verified 07/24/24 13:49 e metoclopramide (From Reglan) Allergy ADR-Shakine Verified 07/24/24 13:49 ss nitroglycerin Allergy ADV-Weaknes Verified 07/24/24 13:49 s tramadol Allergy Unknown Verified 07/24/24 13:49 trimethoprim (From Bactrim) Allergy ALGY-Hives Verified 07/24/24 13:49 ziprasidone (From Geodon) AdvReac Severe ADR-Halluci Verified 07/24/24 13:49 nating risperidone (From Risperdal) AdvReac ADR-Halluci Verified 07/24/24 13:49 nating [facility] ED PFS: Medical History Insomnia Tobacco use disorder Opioid dependence, uncomplicated Cannabis dependence, uncomplicated Psychiatric care Tardive dyskinesia Esophageal stricture Cystitis cystica Chronic gastritis without bleeding Restrictive lung disease Chronic back pain greater than 3 months duration Borderline personality disorder Schizoaffective disorder, bipolar type Urgency incontinence Neurogenic bladder Dysphagia COPD (chronic obstructive pulmonary disease) GERD without esophagitis Foreign body in bladder Bladder stone Chronic anxiety Surgical History H/O bladder repair surgery MESH REPAIR H/O esophagogastroduodenoscopy (09/21/20) H/O colonoscopy with polypectomy History of foot surgery sx in 2009. Screws placed by Dr. Don. S/P bronchoscopy with biopsy History of ureter stent History of breast biopsy Hx of cholecystectomy H/O: hysterectomy History of appendectomy Family History Mother No problems noted. Father No problems noted. Other Asthma Cancer Diabetes Heart disease Social History Smoking and tobacco/nicotine status: current every day tobacco/nicotine user cigarettes Packs smoked per day: 1 Years cigarettes smoked: 20 [ Other cigarette details: Hx of 1 PPD x 20 Years, started at age 27] Quit status (tobacco/nicotine): considering quitting Second hand smoke exposure: Yes Alcohol intake: never Substance/Drug Use: former Lives independently: Yes Household members: spouse Marital status: Number of children: 3 Current occupational status: disabled Do you think of yourself as: Straight/Heterosexual Current gender identity: Female Physical Exam Const: COMMON NORMALS: no acute distress GENERAL APPEARANCE: cooperative; not ill appearing and not frail appearing HENMT: COMMON NORMALS: normocephalic, atraumatic and Normal external nose present HEAD & SCALP: normocephalic and atraumatic FACE & SINUS: normal facial exam and face symmetric NOSE: Normal external nose present Eye: COMMON NORMALS: Equal, round and reactive pupils present and EOMs intact bilaterally PUPIL: Yes Equal, round and reactive pupils present Neck/C-Spine: GENERAL: Yes trachea midline Chest: CHEST: Yes Symmetrical chest wall rise Resp: COMMON NORMALS: normal respiratory effort, No retractions, No use of accessory muscles and clear to auscultation bilaterally AUSCULTATION: clear to auscultation bilaterally Cardio: COMMON NORMALS: regular rate and regular rhythm RATE: regular rate RHYTHM: regular rhythm GI: COMMON NORMALS: Soft to palpation INSPECTION: Yes normal to inspection PALPATION: Yes Soft to palpation and Yes Tenderness to palpation present (GI) (Generalized) Extremity: COMMON NORMALS: no pedal edema Neuro: JEANINE COMA SCALE: document GCS findings Jeanine coma scale eye opening: Spontaneous [place] coma scale verbal response: Orientated Jeanine coma scale motor response: Obey commands [place] coma scale total score: 15 SENSORY EXAM: Yes extremities (intact) Psych: COMMON NORMALS: speech normal SPEECH: Yes normal speech Skin: COMMON NORMALS: no rashes or lesions noted GENERAL SKIN EXAM: no rashes or lesions noted Course Vital Signs: Vital signs: Vital Signs Temperature 97.6 F 07/28/24 19:42 Pulse Rate 63 07/29/24 02:30 Respiratory Rate 17 07/28/24 19:42 Blood Pressure 126/91 07/29/24 02:16 Pulse Oximetry 94 07/29/24 02:16 Oxygen Delivery Me thod Room Air 07/28/24 19:42 MDM - Abdominal Pain Medical Decision Making Part of his white blood cell count is improved. She is afebrile here. Her CRP elevation is minimal. Her lipase is normal. Liver enzymes are normal. Pain is improved after pain medication and GI cocktail here. She will be allowed discharge. Lab Data 07/29/24 01:13 07/29/24 01:13 Labs/Radiology: Laboratory Results WBC 12.45 10^3/uL (3.29-11.43) H 07/29/24 01:13 RBC 4.12 10^6/uL (3.85-5.65) 07/29/24 01:13 Hgb 13.80 g/dL (11.27-16.99) 07/29/24 01:13 Hct 41.7 % (36-47) 07/29/24 01:13 MCV 101.2 fl (85-98) H 07/29/24 01:13 MCH 33.5 pg (27-33) H 07/29/24 01:13 MCHC 33.1 g/dL (30-55) 07/29/24 01:13 RDW 13.3 % (12.1-15.1) 07/29/24 01:13 Plt Count 247 10^3/cmm (157-399) 07/29/24 01:13 MPV 9.6 fL (7.4-10.4) 07/29/24 01:13 Neut % (Auto) 71.8 % 07/29/24 01:13 Lymph % (Auto) 16.5 % 07/29/24 01:13 [place] % (Auto) 8.0 % 07/29/24 01:13 Eos % (Auto) 2.6 % 07/29/24 01:13 Baso % (Auto) 0.8 % 07/29/24 01:13 Neut # (Auto) 8.93 10^3/uL (1.8-7.7) H 07/29/24 01:13 Lymph # (Auto) 2.1 10^3/uL (0.8-4.8) 07/29/24 01:13 [place] # (Auto) 1.0 10^3/uL (0.2-0.9) H 07/29/24 01:13 Eos # (Auto) 0.3 10^3/uL (0.0-0.8) 07/29/24 01:13 Baso # (Auto) 0.1 10^3/uL (0.0-0.1) 07/29/24 01:13 Nucleated RBC % (auto) 0 % 07/29/24 01:13 Nucleated RBCs # 0.0 /100WBC 07/29/24 01:13 Sodium 140 mmol/L (136-145) 07/29/24 01:13 Potassium 3.7 mmol/L (3.5-5.1) 07/29/24 01:13 Chloride 105 mmol/L (98-107) 07/29/24 01:13 Carbon Dioxide 25 mmol/L (22-29) 07/29/24 01:13 Anion Gap 13.7 (5-19) 07/29/24 01:13 BUN 9 mg/dL (6-20) 07/29/24 01:13 Creatinine 0.8 mg/dL (0.5-0.9) 07/29/24 01:13 GFR Calculation 74.2 mL/min (90-130) L 07/29/24 01:13 Glucose 101 mg/dL (65-115) 07/29/24 01:13 Calculated Osmolality 289 mOsm/kg (285-295) 07/29/24 01:13 Calcium 9.2 mg/dL (8.5-10.5) 07/29/24 01:13 Total Bilirubin 0.2 mg/dL (0.15-1.2) 07/29/24 01:13 AST 24 U/L (0-32) 07/29/24 01:13 ALT 35 U/L (0-33) H 07/29/24 01:13 Alkaline Phosphatase 145 U/L (35-105) H 07/29/24 01:13 C-Reactive Protein 21.2 mg/L (0.0-4.9) H 07/29/24 01:13 Total Protein 6.7 g/dL (6.6-8.7) 07/29/24 01:13 Albumin 3.9 g/dL (3.5-5.2) 07/29/24 01:13 Globulin 2.8 g/dL (1.3-4.6) 07/29/24 01:13 Lipase 25 U/L (13-60) 07/29/24 01:13 No radiology studies performed this visit Discharge Plan Discharge Patient Disposition: Home Clinical Impression: Abdominal pain Qualifiers: Abdominal location: unspecified location Qualified Code(s): R10.9 - Unspecified abdominal pain Condition: Stable Prescriptions: No Action promethazine 25 mg suppository 25 mg NJ Q6H PRN pantoprazole 40 mg tablet,delayed release (DR/EC) 40 mg PO BID (DME) SOLE Supports See Rx Instructions .Route .MEDSUPPLY Qty: 1 0RF Rx Instructions: As directed PRE-Auth prednisolone acetate 1 % drops,suspension ophthalmic (eye) lubiprostone 8 mcg capsule PO fluticasone propionate [Flonase Allergy Relief] 50 mcg/actuation spray,suspension 1 spray intranasal DAILY PRN (Reason: nasal congestion) 30 Days Qty: 16 2RF Rx Instructions: administer into each nostril dicyclomine 10 mg capsule 10 mg PO BID PRN ondansetron HCl 4 mg tablet 4 mg PO Q8H sucralfate [Carafate] 1 gram tablet 1 g PO QID polyethylene glycol 3350 [Miralax] 17 gram/dose powder 4 g PO DAILY lamotrigine 200 mg tablet 200 mg PO DAILY@06 Qty: 30 2RF Rx Instructions: Take one tablet by mouth every morning quetiapine 50 mg tablet 50 mg PO BID Qty: 60 2RF Rx Instructions: Take one tablet by mouth every morning and at bedtime quetiapine 25 mg tablet 25 mg PO BID PRN (Reason: agitation) Qty: 60 2RF Rx Instructions: Take one tablet up to twice a day, if needed, for agitation trazodone 300 mg tablet 300 mg PO .q hs PRN (Reason: sleep) Qty: 30 2RF Rx Instructions: Take one tablet daily at bedtime, if needed for sleep Trintellix 20 mg tablet 20 mg PO .q am Qty: 30 2RF Rx Instructions: Take one tablet once daily clindamycin phosphate 1 % gel 1 applic topical BID 10 Days Qty: 30 1RF Rx Instructions: use during flare-ups nystatin 100,000 unit/gram powder 1 applic topical BID Qty: 30 0RF Rx Instructions: apply locally to B/L groin folds albuterol sulfate 90 mcg/actuation HFA aerosol inhaler See Rx Instructions .ROUTE .COMPLEX Qty: 9 0RF Dose Instruction: INHALE 2 PUFFS BY MOUTH EVERY 6 HOURS NEEDED FOR SHORTNESS OF BREATH OR WHEEZING Rx Instructions: INHALE 2 PUFFS BY MOUTH EVERY 6 HOURS NEEDED FOR SHORTNESS OF BREATH OR WHEEZING acetaminophen 500 mg Tablet 1,000 mg PO Q6H PRN (Reason: Pain) diclofenac sodium 50 mg tablet,delayed release (DR/EC) 50 mg PO BID PRN (Reason: pain) Qty: 14 0RF ondansetron 4 mg tablet,disintegrating 4 mg PO Q8H PRN (Reason: nausea and vomiting) Qty: 10 0RF Discharge Orders: Discharge ED (Routine); Ordered 07/29/24 Ordered By: Chivo Deleon Referrals: Dara Tavera FNP [Primary Care Provider] - 1-3 days Patient Instructions: Abdominal Pain (ED), Opioid Safety, Pain Management Activity Restrictions/Additional Instructions: Contact your doctor later this morning. Let them know you were seen here again with abdominal pain. They may wish to see you given your recent diagnosis of diverticulitis. Your laboratory is improved. Print Language: Kiswahili Coding Level of Care Code ED Transportation Director for Shellie Guallpa
[2024-07-28 23:41] VITALS: BP 120/67
[2024-07-28 23:45] VITALS: O2SAT 97
[2024-07-29] VITALS (11 sets, daily range): BP systolic 102–129; BP diastolic 62–91; PULSE 63–77; O2SAT 90–100
[2024-07-29] MEDS: ondansetron 2 mg/ML SDV 2 mL 4 MG IVP (01:20)
[2024-07-29] MEDS: HYDROMORPHONE HCL 0.5 MG/0.5 ML INJ 2 MG IVP (01:25)
[2024-07-29 01:39] LABS: Basophils # 0.1 10^3/uL (0.0-0.1); Basophils % 0.8 %; Eosinophils # 0.3 10^3/uL (0.0-0.8); Eosinophils % 2.6 %; Hematocrit 41.7 % (36-47); Lymphocytes # 2.1 10^3/uL (0.8-4.8); Lymphocytes % 16.5 %; Mean Corpuscular HGB Conc 33.1 g/dL (30-55); Mean Corpuscular Hemoglobin 33.5 pg (27-33); Mean Corpuscular Volume 101.2 fl (85-98); Mean Platelet Volume 9.6 fL (7.4-10.4); Neutrophils # 8.93 10^3/uL (1.8-7.7); Neutrophils % 71.8 %; Nucleated Red Blood Cells % 0 %; Platelet Count 247 10^3/cmm (157-399); Red Blood Count 4.12 10^6/uL (3.85-5.65); Red Cell Distribution Width 13.3 % (12.1-15.1); White Blood Count 12.45 10^3/uL (3.29-11.43)
[2024-07-29 01:50] LABS: Alanine Aminotransferase 35 U/L (0-33); Albumin Level 3.9 g/dL (3.5-5.2); Alkaline Phosphatase 145 U/L (35-105); Anion Gap 13.7 (5-19); Aspartate Amino Transferase 24 U/L (0-32); Blood Urea Nitrogen 9 mg/dL (6-20); C Reactive Protein 21.2 mg/L (0.0-4.9); Calcium 9.2 mg/dL (8.5-10.5); Carbon Dioxide 25 mmol/L (22-29); Chloride 105 mmol/L (98-107); Creatinine Clr Calc Pharmacy 68.7488; Globulin 2.8 g/dL (1.3-4.6); Glomerular Filtration Rate 74.2 mL/min (90-130); Glucose 101 mg/dL (65-115); Lipase 25 U/L (13-60); Osmolality Calculated 289 mOsm/kg (285-295); Potassium 3.7 mmol/L (3.5-5.1); Sodium 140 mmol/L (136-145); Total Bilirubin 0.2 mg/dL (0.15-1.2); Total Protein 6.7 g/dL (6.6-8.7)
[2024-07-29] MEDS: lidocaine 2% viscous 15 ML, aluminum-mag hydrox-simethicon 30 ML, sucralfate oral liq 1 GM PO (02:16)
== END 2024-07-29 03:05 | disposition home or self-care (01) ==
PROVIDERS: Emergency Provider Emergency Medicine; PCP Registered Nurse
DX: R10.9 Unspecified abdominal pain (principal); F17.210 Nicotine dependence, cigarettes, uncomplicated; J44.9 Chronic obstructive pulmonary disease, unspecified
CPT/HCPCS: 80053; 83690; 85025; 86140; 96374; 96375; 99284; J1171; J2405

== ENCOUNTER 2024-08-11 19:41 | Emergency (ER) | payer MEDICARE, MEDICAID, SELFPAY ==
[2024-08-11 19:52] VITALS: BP 111/65; PULSE 87; RESP 17; TEMP 36.6; O2SAT 95; BMI 29.8
--- NOTE | 2024-08-11 21:48 | W.ED.ABDPA2 ---
HPI - Abdominal Pain General: Chief Complaint: Abdominal Pain Stated Complaint: abdomen pain Time Seen by Provider: 08/11/24 21:20 History of Present Illness: This patient is a 58-year-old white female well-known to me. She presents to the emergency departments frequently with chronic abdominal pain. She states she developed another episode of abdominal pain this evening along with vomiting around 6 PM. Associated Symptoms: Reports vomiting Related Data Home Medications ?Medication ?Instructions ?Recorded ?Confirmed acetaminophen 500 mg tablet 1,000 mg PO Q6H PRN Pain 07/09/21 08/05/24 pantoprazole 40 mg tablet,delayed 40 mg PO BID 07/27/23 08/05/24 release promethazine 25 mg rectal 25 mg ID Q6H PRN 07/27/23 08/05/24 suppository ondansetron HCl 4 mg tablet 4 mg PO Q8H 01/22/24 08/05/24 lubiprostone 8 mcg capsule mcg PO 05/10/24 08/05/24 prednisolone acetate 1 % eye drp ophthalmic (eye) 05/10/24 08/05/24 drops,suspension dicyclomine 10 mg capsule 10 mg PO BID PRN 05/27/24 08/05/24 polyethylene glycol 3350 17 4 g PO DAILY 05/27/24 08/05/24 gram/dose oral powder (Miralax) sucralfate 1 gram tablet (Carafate) 1 g PO QID 05/27/24 08/05/24 Previous Rx's ?Medication ?Instructions ?Recorded nystatin 100,000 unit/gram topical 1 applic topical BID #30 grams 06/16/22 powder SOLE Supports #1 ea 01/01/24 fluticasone propionate 50 1 spray intranasal DAILY PRN nasal 05/10/24 mcg/actuation nasal congestion 30 days #16 grams spray,suspension (Flonase Allergy Relief) quetiapine 25 mg tablet 25 mg PO BID PRN agitation #60 tabs 05/27/24 albuterol sulfate 90 mcg/actuation See Rx Instructions .Route 07/22/24 aerosol inhaler .COMPLEX #9 grams clindamycin phosphate 1 % topical 1 applic topical BID 10 days #30 07/24/24 gel grams lamotrigine 200 mg tablet 200 mg PO DAILY@06 #30 tabs 08/05/24 quetiapine 50 mg tablet See Rx Instructions PO .COMPLEX 08/05/24 #90 tabs trazodone 300 mg tablet 300 mg PO .q hs PRN sleep #30 tabs 08/05/24 vortioxetine 20 mg tablet 20 mg PO .q am #30 tabs 08/05/24 (Trintellix) Allergies Allergy/AdvReac Type Severity Reaction Status Date / Time haloperidol (From Haldol) Allergy Severe unknown Verified 08/11/24 19:56 Penicillins Allergy Severe ALGY-Anaphy Verified 08/11/24 19:56 laxis sulfamethoxazole (From Allergy Severe ALGY-Hives Verified 08/11/24 19:56 Bactrim) Tetracyclines Allergy Severe ALGY-Hives Verified 08/11/24 19:56 gabapentin (From Neurontin) Allergy Intermediate ADR-Halluci Verified 08/11/24 19:56 nating ketorolac (From Toradol) Allergy Intermediate ALGY-Rash Verified 08/11/24 19:56 lithium Allergy Intermediate ADR-Halluci Verified 08/11/24 19:56 nating fentanyl Allergy Mild rash Verified 08/11/24 19:56 adhesive tape Allergy Rash Verified 08/11/24 19:56 codeine Allergy GI Verified 08/11/24 19:56 duloxetine (From Cymbalta) Allergy ALGY-Rash Verified 08/11/24 19:56 fluoxetine Allergy ADR-Migrain Verified 08/11/24 19:56 e metoclopramide (From Reglan) Allergy ADR-Shakine Verified 08/11/24 19:56 ss nitroglycerin Allergy ADV-Weaknes Verified 08/11/24 19:56 s tramadol Allergy Unknown Verified 08/11/24 19:56 trimethoprim (From Bactrim) Allergy ALGY-Hives Verified 08/11/24 19:56 ziprasidone (From Geodon) AdvReac Severe ADR-Halluci Verified 08/11/24 19:56 nating risperidone (From Risperdal) AdvReac ADR-Halluci Verified 08/11/24 19:56 nating Review of Systems General: Reports: 10 or more systems reviewed and unremarkable except in HPI and below GI: Reports: abdominal pain and vomiting PFSH ED PFSH: Medical History Insomnia Tobacco use disorder Opioid dependence, uncomplicated Cannabis dependence, uncomplicated Psychiatric care Tardive dyskinesia Esophageal stricture Cystitis cystica Chronic gastritis without bleeding Restrictive lung disease Chronic back pain greater than 3 months duration Borderline personality disorder Schizoaffective disorder, bipolar type Urgency incontinence Neurogenic bladder Dysphagia COPD (chronic obstructive pulmonary disease) GERD without esophagitis Foreign body in bladder Bladder stone Chronic anxiety Surgical History H/O bladder repair surgery MESH REPAIR H/O esophagogastroduodenoscopy (09/21/20) H/O colonoscopy with polypectomy History of foot surgery sx in 2009. Screws placed by Dr. Don. S/P bronchoscopy with biopsy History of ureter stent History of breast biopsy Hx of cholecystectomy H/O: hysterectomy History of appendectomy Family History Mother No problems noted. Father No problems noted. Other Asthma Cancer Diabetes Heart disease Social History Smoking and tobacco/nicotine status: current every day tobacco/nicotine user cigarettes Packs smoked per day: 1 Years cigarettes smoked: 20 [ Other cigarette details: Hx of 1 PPD x 20 Years, started at age 27] Quit status (tobacco/nicotine): considering quitting Second hand smoke exposure: Yes Alcohol intake: never Substance/Drug Use: former Lives independently: Yes Household members: spouse Marital status: Number of children: 3 Current occupational status: disabled Do you think of yourself as: Straight/Heterosexual Current gender identity: Female Physical Exam Const: COMMON NORMALS: no acute distress, patient oriented x3 and no limitations GENERAL APPEARANCE: cooperative and comfortable HENMT: COMMON NORMALS: normocephalic, atraumatic, Normal nasal mucous membranes and turbinates present, moist oral mucous membranes and oropharynx normal HEAD & SCALP: normal to inspection, normocephalic and atraumatic FACE & SINUS: normal facial exam NOSE: Normal nasal mucous membranes and turbinates present Eye: COMMON NORMALS: Equal, round and reactive pupils present, EOMs intact bilaterally and conjunctivae normal GENERAL EYE: appearance normal, both eyes and all related structures CONJUNCTIVA: Yes conjunctivae normal PUPIL: Yes Equal, round and reactive pupils present Neck/C-Spine: COMMON NORMALS: supple and no JVD Chest: COMMONS NORMALS: normal inspection of the chest Resp: COMMON NORMALS: normal respiratory effort and clear to auscultation bilaterally AUSCULTATION: clear to auscultation bilaterally Cardio: COMMON NORMALS: no JVD, regular rate, regular rhythm, No gallops present (Cardio), No murmurs present (Cardio) and No rub (Cardio) RATE: regular rate RHYTHM: regular rhythm GI: COMMON NORMALS: Normal to inspection, nondistended, normoactive bowel sounds present, Soft to palpation and non-tender AUSCULTATION: Yes normoactive bowel sounds PALPATION: Yes Soft to palpation : COMMON NORMALS: Yes no CVA tenderness BLADDER/KIDNEY EXAM: Yes no CVA tenderness Back/Pelvis: COMMON NORMALS: no CVA tenderness and thoracic and lumbar spine normal to inspection Extremity: COMMON NORMALS: normal to inspection Neuro: COMMON NORMALS: patient oriented x3 and CN's II-XII intact bilaterally Psych: COMMON NORMALS: mental status grossly normal, Normal thought process present and cooperative THOUGHT PROCESS: Normal thought process present Skin: COMMON NORMALS: no rashes or lesions noted, turgor normal and no jaundice GENERAL SKIN EXAM: no rashes or lesions noted and turgor normal Course Vital Signs: Vital signs: Vital Signs Temperature 97.9 F 08/11/24 19:52 Pulse Rate 87 08/11/24 19:52 Respiratory Rate 17 08/11/24 19:52 Blood Pressure 111/65 08/11/24 19:52 Pulse Oximetry 95 08/11/24 19:52 Oxygen Delivery Me thod Room Air 08/11/24 19:52 MDM - Abdominal Pain Medical Decision Making Patient was given a 1 L bolus of normal saline, 4 mg of Zofran IV and 0.5 mg of Dilaudid IV. Patient will be observed for some time and then discharged. Recommended she follow-up with her primary care physician for ongoing management. No radiology studies performed this visit Discharge Plan Discharge Patient Disposition: Home Clinical Impression: Abdominal pain, chronic, generalized Condition: Stable Prescriptions: No Action promethazine 25 mg suppository 25 mg ID Q6H PRN pantoprazole 40 mg tablet,delayed release (DR/EC) 40 mg PO BID (DME) SOLE Supports See Rx Instructions .Route .MEDSUPPLY Qty: 1 0RF Rx Instructions: As directed PRE-Auth prednisolone acetate 1 % drops,suspension ophthalmic (eye) lubiprostone 8 mcg capsule PO fluticasone propionate [Flonase Allergy Relief] 50 mcg/actuation spray,suspension 1 spray intranasal DAILY PRN (Reason: nasal congestion) 30 Days Qty: 16 2RF Rx Instructions: administer into each nostril dicyclomine 10 mg capsule 10 mg PO BID PRN lamotrigine 200 mg tablet 200 mg PO DAILY@06 Qty: 30 2RF Rx Instructions: Take one tablet by mouth every morning quetiapine 50 mg tablet See Rx Instructions PO .COMPLEX Qty: 90 2RF Rx Instructions: Take two tablets by mouth every morning, and one tablet at bedtime trazodone 300 mg tablet 300 mg PO .q hs PRN (Reason: sleep) Qty: 30 2RF Rx Instructions: Take one tablet daily at bedtime, if needed for sleep Trintellix 20 mg tablet 20 mg PO .q am Qty: 30 2RF Rx Instructions: Take one tablet once daily ondansetron HCl 4 mg tablet 4 mg PO Q8H sucralfate [Carafate] 1 gram tablet 1 g PO QID polyethylene glycol 3350 [Miralax] 17 gram/dose powder 4 g PO DAILY quetiapine 25 mg tablet 25 mg PO BID PRN (Reason: agitation) Qty: 60 2RF Rx Instructions: Take one tablet up to twice a day, if needed, for agitation clindamycin phosphate 1 % gel 1 applic topical BID 10 Days Qty: 30 1RF Rx Instructions: use during flare-ups nystatin 100,000 unit/gram powder 1 applic topical BID Qty: 30 0RF Rx Instructions: apply locally to B/L groin folds albuterol sulfate 90 mcg/actuation HFA aerosol inhaler See Rx Instructions .ROUTE .COMPLEX Qty: 9 0RF Dose Instruction: INHALE 2 PUFFS BY MOUTH EVERY 6 HOURS NEEDED FOR SHORTNESS OF BREATH OR WHEEZING Rx Instructions: INHALE 2 PUFFS BY MOUTH EVERY 6 HOURS NEEDED FOR SHORTNESS OF BREATH OR WHEEZING acetaminophen 500 mg Tablet 1,000 mg PO Q6H PRN (Reason: Pain) Discharge Orders: Discharge ED (Routine); Ordered 08/11/24 Ordered By: Oscar Matthews Referrals: Dara Tavera, [facility] B[facility]ER [Primary Care Provider] - Patient Instructions: Abdominal Pain (ED), Pain Management Print Language: Tristanian Coding Level of Care Code ED [employer] Press Operator for Chg Saloni
[2024-08-11] MEDS: ondansetron 2 mg/ML SDV 2 mL 4 MG IVP (22:16)
[2024-08-11] MEDS: sodium chloride 0.9% 1,000 ML 999 ML IV (22:16)
[2024-08-11] MEDS: HYDROMORPHONE HCL 0.5 MG/0.5 ML INJ IVP (22:16)
[2024-08-11 22:18] VITALS: BP 106/41; PULSE 86; RESP 18; O2SAT 95
[2024-08-11 22:30] VITALS: BP 108/47; PULSE 81; O2SAT 93
[2024-08-11] MEDS: HYDROMORPHONE HCL 0.5 MG/0.5 ML INJ 1 MG IVP (22:54)
[2024-08-11 23:00] VITALS: BP 98/50; PULSE 80; O2SAT 93
[2024-08-11 23:36] VITALS: BP 121/57; PULSE 77; RESP 16; O2SAT 94
== END 2024-08-11 23:35 | disposition home or self-care (01) ==
PROVIDERS: Emergency Provider Emergency Medicine; PCP Registered Nurse
DX: R10.84 Generalized abdominal pain (principal); F17.210 Nicotine dependence, cigarettes, uncomplicated; J44.9 Chronic obstructive pulmonary disease, unspecified
CPT/HCPCS: 96374; 96375; 96376; 99284; J1171; J2405; J7030

== ENCOUNTER 2024-08-12 02:24 | Emergency (ER) | payer MEDICARE, MEDICAID, SELFPAY ==
[2024-08-12 03:43] VITALS: BP 91/47; PULSE 79; RESP 16; O2SAT 96; BMI 29.8
--- NOTE | 2024-08-12 04:40 | W.ED.NAVMDI ---
HPI - Nausea/Vomiting/Diarrhea General: Chief complaint: Nausea/Vomiting/Diarrhea Stated complaint: Vomiting Blood\Pain Time Seen by Provider: 08/12/24 04:03 History of Present Illness: 58-year-old female well-known to the emergency department service. She presents for the second time in 24 hours regarding abdominal pain and vomiting. This is a chronic problem for her. She denies fever. No diarrhea. She says there is small bits of blood in her vomit. She sees a specialist in [place], and is currently taking Carafate, pantoprazole, and dicyclomine for her condition. Related Data Home Medications ?Medication ?Instructions ?Recorded ?Confirmed acetaminophen 500 mg tablet 1,000 mg PO Q6H PRN Pain 07/09/21 08/05/24 pantoprazole 40 mg tablet,delayed 40 mg PO BID 07/27/23 08/05/24 release promethazine 25 mg rectal 25 mg GA Q6H PRN 07/27/23 08/05/24 suppository ondansetron HCl 4 mg tablet 4 mg PO Q8H 01/22/24 08/05/24 lubiprostone 8 mcg capsule mcg PO 05/10/24 08/05/24 prednisolone acetate 1 % eye drp ophthalmic (eye) 05/10/24 08/05/24 drops,suspension dicyclomine 10 mg capsule 10 mg PO BID PRN 05/27/24 08/05/24 polyethylene glycol 3350 17 4 g PO DAILY 05/27/24 08/05/24 gram/dose oral powder (Miralax) sucralfate 1 gram tablet (Carafate) 1 g PO QID 05/27/24 08/05/24 Previous Rx's ?Medication ?Instructions ?Recorded nystatin 100,000 unit/gram topical 1 applic topical BID #30 grams 06/16/22 powder SOLE Supports #1 ea 01/01/24 fluticasone propionate 50 1 spray intranasal DAILY PRN nasal 05/10/24 mcg/actuation nasal congestion 30 days #16 grams spray,suspension (Flonase Allergy Relief) quetiapine 25 mg tablet 25 mg PO BID PRN agitation #60 tabs 05/27/24 albuterol sulfate 90 mcg/actuation See Rx Instructions .Route 07/22/24 aerosol inhaler .COMPLEX #9 grams clindamycin phosphate 1 % topical 1 applic topical BID 10 days #30 07/24/24 gel grams lamotrigine 200 mg tablet 200 mg PO DAILY@06 #30 tabs 08/05/24 quetiapine 50 mg tablet See Rx Instructions PO .COMPLEX 08/05/24 #90 tabs trazodone 300 mg tablet 300 mg PO .q hs PRN sleep #30 tabs 08/05/24 vortioxetine 20 mg tablet 20 mg PO .q am #30 tabs 08/05/24 (Trintellix) Allergies Allergy/AdvReac Type Severity Reaction Status Date / Time haloperidol (From Haldol) Allergy Severe unknown Verified 08/11/24 19:56 Penicillins Allergy Severe ALGY-Anaphy Verified 08/11/24 19:56 laxis sulfamethoxazole (From Allergy Severe ALGY-Hives Verified 08/11/24 19:56 Bactrim) Tetracyclines Allergy Severe ALGY-Hives Verified 08/11/24 19:56 gabapentin (From Neurontin) Allergy Intermediate ADR-Halluci Verified 08/11/24 19:56 nating ketorolac (From Toradol) Allergy Intermediate ALGY-Rash Verified 08/11/24 19:56 lithium Allergy Intermediate ADR-Halluci Verified 08/11/24 19:56 nating fentanyl Allergy Mild rash Verified 08/11/24 19:56 adhesive tape Allergy Rash Verified 08/11/24 19:56 codeine Allergy GI Verified 08/11/24 19:56 duloxetine (From Cymbalta) Allergy ALGY-Rash Verified 08/11/24 19:56 fluoxetine Allergy ADR-Migrain Verified 08/11/24 19:56 e metoclopramide (From Reglan) Allergy ADR-Shakine Verified 08/11/24 19:56 ss nitroglycerin Allergy ADV-Weaknes Verified 08/11/24 19:56 s tramadol Allergy Unknown Verified 08/11/24 19:56 trimethoprim (From Bactrim) Allergy ALGY-Hives Verified 08/11/24 19:56 ziprasidone (From Geodon) AdvReac Severe ADR-Halluci Verified 08/11/24 19:56 nating risperidone (From Risperdal) AdvReac ADR-Halluci Verified 08/11/24 19:56 nating [facility] PFSH: Medical History Insomnia Tobacco use disorder Opioid dependence, uncomplicated Cannabis dependence, uncomplicated Psychiatric care Tardive dyskinesia Esophageal stricture Cystitis cystica Chronic gastritis without bleeding Restrictive lung disease Chronic back pain greater than 3 months duration Borderline personality disorder Schizoaffective disorder, bipolar type Urgency incontinence Neurogenic bladder Dysphagia COPD (chronic obstructive pulmonary disease) GERD without esophagitis Foreign body in bladder Bladder stone Chronic anxiety Surgical History H/O bladder repair surgery MESH REPAIR H/O esophagogastroduodenoscopy (09/21/20) H/O colonoscopy with polypectomy History of foot surgery sx in 2009. Screws placed by Dr. Don. S/P bronchoscopy with biopsy History of ureter stent History of breast biopsy Hx of cholecystectomy H/O: hysterectomy History of appendectomy Family History Mother No problems noted. Father No problems noted. Other Asthma Cancer Diabetes Heart disease Social History Smoking and tobacco/nicotine status: current every day tobacco/nicotine user cigarettes Packs smoked per day: 1 Years cigarettes smoked: 20 [ Other cigarette details: Hx of 1 PPD x 20 Years, started at age 27] Quit status (tobacco/nicotine): considering quitting Second hand smoke exposure: Yes Alcohol intake: never Substance/Drug Use: former Lives independently: Yes Household members: spouse Marital status: Number of children: 3 Current occupational status: disabled Do you think of yourself as: Straight/Heterosexual Current gender identity: Female Physical Exam Const: COMMON NORMALS: no acute distress GENERAL APPEARANCE: cooperative; not ill appearing and not frail appearing HENMT: COMMON NORMALS: normocephalic, atraumatic and Normal external nose present HEAD & SCALP: normocephalic and atraumatic FACE & SINUS: normal facial exam and face symmetric NOSE: Normal external nose present Eye: COMMON NORMALS: Equal, round and reactive pupils present and EOMs intact bilaterally PUPIL: Yes Equal, round and reactive pupils present Neck/C-Spine: GENERAL: Yes trachea midline Chest: CHEST: Yes Symmetrical chest wall rise Resp: COMMON NORMALS: normal respiratory effort, No retractions, No use of accessory muscles and clear to auscultation bilaterally AUSCULTATION: clear to auscultation bilaterally Cardio: COMMON NORMALS: regular rate and regular rhythm RATE: regular rate RHYTHM: regular rhythm GI: COMMON NORMALS: Normal to inspection, nondistended, normoactive bowel sounds present PALPATION: Yes Tenderness to palpation present (GI) (Generalized) Extremity: COMMON NORMALS: no pedal edema Neuro: JEANINE COMA SCALE: document GCS findings Jeanine coma scale eye opening: Spontaneous [place] coma scale verbal response: Orientated [place] coma scale motor response: Obey commands Jeanine coma scale total score: 15 SENSORY EXAM: Yes extremities (intact) Psych: COMMON NORMALS: speech normal SPEECH: Yes normal speech Skin: COMMON NORMALS: no rashes or lesions noted GENERAL SKIN EXAM: no rashes or lesions noted Course Vital Signs: Vital signs: Vital Signs Pulse Rate 80 08/12/24 05:26 Respiratory Rate 18 08/12/24 05:26 Blood Pressure 91/47 08/12/24 03:43 Pulse Oximetry 91 08/12/24 05:26 Oxygen Delivery Me thod Room Air 08/12/24 05:26 MDM - Nausea/Vomiting/Diarrhea Medical Decision Making White blood cell count is 12. No significant left shift. CRP is stable in the 20s. Urinalysis is negative. She is improved after medication. She will be discharged. Follow-up with her specialist. Lab Data 08/12/24 05:06 08/12/24 05:06 Laboratory Results WBC 12.72 10^3/uL (3.29-11.43) H 08/12/24 05:06 Corrected WBC Cancelled 08/12/24 04:25 RBC 3.70 10^6/uL (3.85-5.65) L 08/12/24 05:06 Hgb 12.10 g/dL (11.27-16.99) 08/12/24 05:06 Hct 36.8 % (36-47) 08/12/24 05:06 MCV 99.5 fl (85-98) H 08/12/24 05:06 MCH 32.7 pg (27-33) 08/12/24 05:06 MCHC 32.9 g/dL (30-55) 08/12/24 05:06 RDW 13.2 % (12.1-15.1) 08/12/24 05:06 Plt Count 227 10^3/cmm (157-399) 08/12/24 05:06 MPV 9.6 fL (7.4-10.4) 08/12/24 05:06 Gran % Cancelled 08/12/24 04:25 Neut % (Auto) 70.8 % 08/12/24 05:06 Lymph % (Auto) 18.6 % 08/12/24 05:06 [place] % (Auto) 7.5 % 08/12/24 05:06 Eos % (Auto) 2.0 % 08/12/24 05:06 Baso % (Auto) 0.8 % 08/12/24 05:06 Neut # (Auto) 9.00 10^3/uL (1.8-7.7) H 08/12/24 05:06 Lymph # (Auto) 2.4 10^3/uL (0.8-4.8) 08/12/24 05:06 [place] # (Auto) 1.0 10^3/uL (0.2-0.9) H 08/12/24 05:06 Eos # (Auto) 0.3 10^3/uL (0.0-0.8) 08/12/24 05:06 Baso # (Auto) 0.1 10^3/uL (0.0-0.1) 08/12/24 05:06 Absolute Gran (auto) Cancelled 08/12/24 04:25 Nucleated RBC % (auto) 0 % 08/12/24 05:06 Nucleated RBCs # 0.0 /100WBC 08/12/24 05:06 Sodium 138 mmol/L (136-145) 08/12/24 05:06 Potassium 3.7 mmol/L (3.5-5.1) 08/12/24 05:06 Chloride 104 mmol/L (98-107) 08/12/24 05:06 Carbon Dioxide 23 mmol/L (22-29) 08/12/24 05:06 Anion Gap 14.7 (5-19) 08/12/24 05:06 BUN 16 mg/dL (6-20) 08/12/24 05:06 Creatinine 0.8 mg/dL (0.5-0.9) 08/12/24 05:06 GFR Calculation 74.2 mL/min (90-130) L 08/12/24 05:06 Glucose 114 mg/dL (65-115) 08/12/24 05:06 Calculated Osmolality 288 mOsm/kg (285-295) 08/12/24 05:06 Calcium 9.0 mg/dL (8.5-10.5) 08/12/24 05:06 Total Bilirubin 0.2 mg/dL (0.15-1.2) 08/12/24 05:06 AST 14 U/L (0-32) 08/12/24 05:06 ALT 10 U/L (0-33) 08/12/24 05:06 Alkaline Phosphatase 109 U/L (35-105) H 08/12/24 05:06 C-Reactive Protein 23.7 mg/L (0.0-4.9) H 08/12/24 05:06 Total Protein 6.3 g/dL (6.6-8.7) L 08/12/24 05:06 Albumin 3.4 g/dL (3.5-5.2) L 08/12/24 05:06 Globulin 2.9 g/dL (1.3-4.6) 08/12/24 05:06 Lipase 18 U/L (13-60) 08/12/24 05:06 Urine Color Yellow (Yellow) 08/12/24 04:27 Urine Appearance Clear (CLEAR) 08/12/24 04:27 Urine pH 6.5 (5-7) 08/12/24 04:27 Ur Specific [place] 1.006 (1.005-1.030) 08/12/24 04:27 Urine Protein Negative (Negative) 08/12/24 04:27 Urine Glucose (UA) Negative (Normal) 08/12/24 04:27 Urine Ketones Negative (Negative) 08/12/24 04:27 Urine Blood Negative (Negative) 08/12/24 04:27 Urine Nitrate Negative (Negative) 08/12/24 04:27 Urine Bilirubin Negative (Negative) 08/12/24 04:27 Urine Urobilinogen 0.2 mg/dL (Negative) 08/12/24 04:27 Ur Leukocyte Esterase Negative (Negative) 08/12/24 04:27 Amorphous Sediment Not Reportable 08/12/24 04:27 No radiology studies performed this visit Discharge Plan Discharge Patient Disposition: Home Clinical Impression: Abdominal pain, chronic, generalized Condition: Stable Prescriptions: No Action promethazine 25 mg suppository 25 mg GA Q6H PRN pantoprazole 40 mg tablet,delayed release (DR/EC) 40 mg PO BID (DME) SOLE Supports See Rx Instructions .Route .MEDSUPPLY Qty: 1 0RF Rx Instructions: As directed PRE-Auth prednisolone acetate 1 % drops,suspension ophthalmic (eye) lubiprostone 8 mcg capsule PO fluticasone propionate [Flonase Allergy Relief] 50 mcg/actuation spray,suspension 1 spray intranasal DAILY PRN (Reason: nasal congestion) 30 Days Qty: 16 2RF Rx Instructions: administer into each nostril dicyclomine 10 mg capsule 10 mg PO BID PRN lamotrigine 200 mg tablet 200 mg PO DAILY@06 Qty: 30 2RF Rx Instructions: Take one tablet by mouth every morning quetiapine 50 mg tablet See Rx Instructions PO .COMPLEX Qty: 90 2RF Rx Instructions: Take two tablets by mouth every morning, and one tablet at bedtime trazodone 300 mg tablet 300 mg PO .q hs PRN (Reason: sleep) Qty: 30 2RF Rx Instructions: Take one tablet daily at bedtime, if needed for sleep Trintellix 20 mg tablet 20 mg PO .q am Qty: 30 2RF Rx Instructions: Take one tablet once daily ondansetron HCl 4 mg tablet 4 mg PO Q8H sucralfate [Carafate] 1 gram tablet 1 g PO QID polyethylene glycol 3350 [Miralax] 17 gram/dose powder 4 g PO DAILY quetiapine 25 mg tablet 25 mg PO BID PRN (Reason: agitation) Qty: 60 2RF Rx Instructions: Take one tablet up to twice a day, if needed, for agitation clindamycin phosphate 1 % gel 1 applic topical BID 10 Days Qty: 30 1RF Rx Instructions: use during flare-ups nystatin 100,000 unit/gram powder 1 applic topical BID Qty: 30 0RF Rx Instructions: apply locally to B/L groin folds albuterol sulfate 90 mcg/actuation HFA aerosol inhaler See Rx Instructions .ROUTE .COMPLEX Qty: 9 0RF Dose Instruction: INHALE 2 PUFFS BY MOUTH EVERY 6 HOURS NEEDED FOR SHORTNESS OF BREATH OR WHEEZING Rx Instructions: INHALE 2 PUFFS BY MOUTH EVERY 6 HOURS NEEDED FOR SHORTNESS OF BREATH OR WHEEZING acetaminophen 500 mg Tablet 1,000 mg PO Q6H PRN (Reason: Pain) Discharge Orders: Discharge ED (Routine); Ordered 08/12/24 Ordered By: Chivo Deleon Referrals: Dara Tavera FNP [Primary Care Provider] - 4-7 days Patient Instructions: Abdominal Pain (ED), Opioid Safety, Pain Management Activity Restrictions/Additional Instructions: Call your doctors office later today for follow-up. Clear liquids for the next 12 hours. Return for problems. 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
[2024-08-12 05:14] LABS: Basophils # 0.1 10^3/uL (0.0-0.1); Basophils % 0.8 %; Eosinophils # 0.3 10^3/uL (0.0-0.8); Hematocrit 36.8 % (36-47); Lymphocytes # 2.4 10^3/uL (0.8-4.8); Lymphocytes % 18.6 %; Mean Corpuscular HGB Conc 32.9 g/dL (30-55); Mean Corpuscular Hemoglobin 32.7 pg (27-33); Mean Corpuscular Volume 99.5 fl (85-98); Mean Platelet Volume 9.6 fL (7.4-10.4); Monocytes % 7.5 %; Neutrophils % 70.8 %; Nucleated Red Blood Cells % 0 %; Platelet Count 227 10^3/cmm (157-399); Red Cell Distribution Width 13.2 % (12.1-15.1); White Blood Count 12.72 10^3/uL (3.29-11.43)
[2024-08-12 05:26] VITALS: PULSE 80; RESP 18; O2SAT 91
[2024-08-12] MEDS: lidocaine 2% viscous 15 ML, aluminum-mag hydrox-simethicon 30 ML, sucralfate oral liq 1 GM PO (05:27)
[2024-08-12] MEDS: HYDROMORPHONE HCL 0.5 MG/0.5 ML INJ 2 MG IM (05:28)
[2024-08-12] MEDS: ondansetron 2 mg/ML SDV 2 mL 4 MG IM (05:28)
[2024-08-12 05:31] LABS: Add Urine Microscopic? NO
[2024-08-12 05:31] LABS: Alanine Aminotransferase 10 U/L (0-33); Albumin Level 3.4 g/dL (3.5-5.2); Alkaline Phosphatase 109 U/L (35-105); Anion Gap 14.7 (5-19); Aspartate Amino Transferase 14 U/L (0-32); Blood Urea Nitrogen 16 mg/dL (6-20); C Reactive Protein 23.7 mg/L (0.0-4.9); Carbon Dioxide 23 mmol/L (22-29); Chloride 104 mmol/L (98-107); Creatinine Clr Calc Pharmacy 73.9218; Globulin 2.9 g/dL (1.3-4.6); Glomerular Filtration Rate 74.2 mL/min (90-130); Glucose 114 mg/dL (65-115); Lipase 18 U/L (13-60); Osmolality Calculated 288 mOsm/kg (285-295); Potassium 3.7 mmol/L (3.5-5.1); Sodium 138 mmol/L (136-145); Total Bilirubin 0.2 mg/dL (0.15-1.2); Total Protein 6.3 g/dL (6.6-8.7)
[2024-08-12 05:33] LABS: Bilirubin Urine Negative (Negative); Blood Urine Negative (Negative); Glucose Urine UA Negative (Normal); Ketones Urine Negative (Negative); Leukocyte Esterase Urine Negative (Negative); Nitrate Urine Negative (Negative); Protein Urine Negative (Negative); Specific Gravity, Urine 1.006 (1.005-1.030); Urine Appearance Clear (CLEAR); Urine Color Yellow (Yellow); Urobilinogen Urine 0.2 mg/dL (Negative); pH Urine 6.5 (5-7)
[2024-08-12 05:35] LABS: Charge for UA Resulting for Rev
== END 2024-08-12 06:17 | disposition home or self-care (01) ==
PROVIDERS: Emergency Provider Emergency Medicine; PCP Registered Nurse
DX: R10.84 Generalized abdominal pain (principal); F17.210 Nicotine dependence, cigarettes, uncomplicated; J44.9 Chronic obstructive pulmonary disease, unspecified
CPT/HCPCS: 36415; 80053; 81003; 83690; 85025; 86140; 96372; 99284; J1171; J2405

== ENCOUNTER → 2024-08-13 09:17 | Outpatient (BNVA) | payer MEDICARE, MEDICAID, SELFPAY | PROVIDERS: PCP Registered Nurse; Visit Provider Surgery | DX: L73.2 Hidradenitis suppurativa (principal) | CPT/HCPCS: 99204 ==

== ENCOUNTER → 2024-08-14 06:49 | Outpatient (BNVA) | payer MEDICARE, MEDICAID, SELFPAY | PROVIDERS: PCP Registered Nurse; Visit Provider Podiatrist Foot & Ankle Surgery | DX: M19.072 Primary osteoarthritis, left ankle and foot (principal); M20.21 Hallux rigidus, right foot; M21.41 Flat foot [pes planus] (acquired), right foot; M21.42 Flat foot [pes planus] (acquired), left foot; T84.84XA Pain due to internal orthopedic prosthetic devices, implants and grafts, initial encounter; Y79.2 Prosthetic and other implants, materials and accessory orthopedic devices associated with adverse incidents; M96.0 Pseudarthrosis after fusion or arthrodesis; M62.462 Contracture of muscle, left lower leg; M21.612 Bunion of left foot | CPT/HCPCS: 73630; 99214 ==

== ENCOUNTER 2024-08-25 20:39 | Emergency (ER) | payer MEDICARE, MEDICAID, SELFPAY ==
[2024-08-25 20:40] VITALS: BP 101/67; PULSE 87; RESP 18; TEMP 36.7; O2SAT 97; BMI 29.8
[2024-08-25 22:08] LABS: Basophils # 0.1 10^3/uL (0.0-0.1); Basophils % 0.6 %; Eosinophils # 0.3 10^3/uL (0.0-0.8); Eosinophils % 1.7 %; Hematocrit 43.5 % (36-47); Lymphocytes # 2.5 10^3/uL (0.8-4.8); Mean Corpuscular HGB Conc 32.6 g/dL (30-55); Mean Corpuscular Hemoglobin 32.6 pg (27-33); Mean Platelet Volume 9.7 fL (7.4-10.4); Monocytes # 1.2 10^3/uL (0.2-0.9); Monocytes % 6.1 %; Neutrophils # 14.86 10^3/uL (1.8-7.7); Neutrophils % 78.1 %; Nucleated Red Blood Cells % 0 %; Platelet Count 208 10^3/cmm (157-399); Red Blood Count 4.35 10^6/uL (3.85-5.65); Red Cell Distribution Width 12.9 % (12.1-15.1); White Blood Count 19.03 10^3/uL (3.29-11.43)
[2024-08-25 22:25] LABS: Alanine Aminotransferase 11 U/L (0-33); Alkaline Phosphatase 127 U/L (35-105); Anion Gap 16.7 (5-19); Aspartate Amino Transferase 15 U/L (0-32); Blood Urea Nitrogen 10 mg/dL (6-20); Calcium 9.3 mg/dL (8.5-10.5); Carbon Dioxide 22 mmol/L (22-29); Chloride 101 mmol/L (98-107); Creatinine Clr Calc Pharmacy 73.9218; Globulin 3.3 g/dL (1.3-4.6); Glomerular Filtration Rate 74.2 mL/min (90-130); Glucose 105 mg/dL (65-115); Osmolality Calculated 281 mOsm/kg (285-295); Potassium 3.7 mmol/L (3.5-5.1); Sodium 136 mmol/L (136-145); Total Bilirubin 0.3 mg/dL (0.15-1.2); Total Protein 7.3 g/dL (6.6-8.7)
[2024-08-25 22:34] LABS: Bilirubin Urine Negative (Negative); Blood Urine Negative (Negative); Glucose Urine UA Negative (Normal); Ketones Urine Negative (Negative); Leukocyte Esterase Urine 1+ (Negative); Nitrate Urine Negative (Negative); Protein Urine Negative (Negative); Specific Gravity, Urine 1.007 (1.005-1.030); Urine Appearance Clear (CLEAR); Urine Color Yellow (Yellow); Urobilinogen Urine 0.2 mg/dL (Negative)
[2024-08-25 22:39] LABS: Add Urine Microscopic? YES; Bacteria Urine None Seen /hpf; Hyaline Casts Urine 0-4 /lpf; RBC Urine 0-2 /hpf (0-2); Squamous Epithelial Cell Urine 0-5 /hpf (0-5)
--- NOTE | 2024-08-25 23:01 | W.ED.ABDPA2 ---
HPI - Abdominal Pain General: Chief Complaint: Abdominal Pain Stated Complaint: abdomen pain Time Seen by Provider: 08/25/24 22:40 History of Present Illness: 58-year-old female very well-known to the emergency department service. She arrives yet again with an exacerbation of her chronic abdominal pain. She states that she has been nauseated. She has lost 5 pounds in the last 3 days or so she says. She says she has not been able to eat. She maintains that she has a follow-up appointment this coming week with her GI specialist in [place]. No fever. She believes she has had some diarrhea. Related Data Home Medications ?Medication ?Instructions ?Recorded ?Confirmed acetaminophen 500 mg tablet 1,000 mg PO Q6H PRN Pain 07/09/21 08/14/24 pantoprazole 40 mg tablet,delayed 40 mg PO BID 07/27/23 08/14/24 release promethazine 25 mg rectal 25 mg KS Q6H PRN 07/27/23 08/14/24 suppository ondansetron HCl 4 mg tablet 4 mg PO Q8H 01/22/24 08/14/24 lubiprostone 8 mcg capsule mcg PO 05/10/24 08/14/24 prednisolone acetate 1 % eye drp ophthalmic (eye) 05/10/24 08/14/24 drops,suspension dicyclomine 10 mg capsule 10 mg PO BID PRN 05/27/24 08/14/24 polyethylene glycol 3350 17 4 g PO DAILY 05/27/24 08/14/24 gram/dose oral powder (Miralax) sucralfate 1 gram tablet (Carafate) 1 g PO QID 05/27/24 08/14/24 Previous Rx's ?Medication ?Instructions ?Recorded nystatin 100,000 unit/gram topical 1 applic topical BID #30 grams 06/16/22 powder SOLE Supports #1 ea 01/01/24 fluticasone propionate 50 1 spray intranasal DAILY PRN nasal 05/10/24 mcg/actuation nasal congestion 30 days #16 grams spray,suspension (Flonase Allergy Relief) quetiapine 25 mg tablet 25 mg PO BID PRN agitation #60 tabs 05/27/24 lamotrigine 200 mg tablet 200 mg PO DAILY@06 #30 tabs 08/05/24 quetiapine 50 mg tablet See Rx Instructions PO .COMPLEX 08/05/24 #90 tabs trazodone 300 mg tablet 300 mg PO .q hs PRN sleep #30 tabs 08/05/24 vortioxetine 20 mg tablet 20 mg PO .q am #30 tabs 08/05/24 (Trintellix) albuterol sulfate 90 mcg/actuation See Rx Instructions .Route 08/13/24 aerosol inhaler .COMPLEX #9 grams Allergies Allergy/AdvReac Type Severity Reaction Status Date / Time haloperidol (From Haldol) Allergy Severe unknown Verified 08/14/24 06:46 Penicillins Allergy Severe ALGY-Anaphy Verified 08/14/24 06:46 laxis sulfamethoxazole (From Allergy Severe ALGY-Hives Verified 08/14/24 06:46 Bactrim) Tetracyclines Allergy Severe ALGY-Hives Verified 08/14/24 06:46 gabapentin (From Neurontin) Allergy Intermediate ADR-Halluci Verified 08/14/24 06:46 nating ketorolac (From Toradol) Allergy Intermediate ALGY-Rash Verified 08/14/24 06:46 lithium Allergy Intermediate ADR-Halluci Verified 08/14/24 06:46 nating fentanyl Allergy Mild rash Verified 08/14/24 06:46 adhesive tape Allergy Rash Verified 08/14/24 06:46 codeine Allergy GI Verified 08/14/24 06:46 duloxetine (From Cymbalta) Allergy ALGY-Rash Verified 08/14/24 06:46 fluoxetine Allergy ADR-Migrain Verified 08/14/24 06:46 e metoclopramide (From Reglan) Allergy ADR-Shakine Verified 08/14/24 06:46 ss nitroglycerin Allergy ADV-Weaknes Verified 08/14/24 06:46 s tramadol Allergy Unknown Verified 08/14/24 06:46 trimethoprim (From Bactrim) Allergy ALGY-Hives Verified 08/14/24 06:46 ziprasidone (From Geodon) AdvReac Severe ADR-Halluci Verified 08/14/24 06:46 nating risperidone (From Risperdal) AdvReac ADR-Halluci Verified 08/14/24 06:46 nating [facility] PFSH: Medical History Insomnia Tobacco use disorder Opioid dependence, uncomplicated Cannabis dependence, uncomplicated Psychiatric care Tardive dyskinesia Esophageal stricture Cystitis cystica Chronic gastritis without bleeding Restrictive lung disease Chronic back pain greater than 3 months duration Borderline personality disorder Schizoaffective disorder, bipolar type Urgency incontinence Neurogenic bladder Dysphagia COPD (chronic obstructive pulmonary disease) GERD without esophagitis Foreign body in bladder Bladder stone Chronic anxiety Surgical History H/O bladder repair surgery MESH REPAIR H/O esophagogastroduodenoscopy (09/21/20) H/O colonoscopy with polypectomy History of foot surgery sx in 2009. Screws placed by Dr. Don. S/P bronchoscopy with biopsy History of ureter stent History of breast biopsy Hx of cholecystectomy H/O: hysterectomy History of appendectomy Family History Mother No problems noted. Father No problems noted. Other Asthma Cancer Diabetes Heart disease Social History Smoking and tobacco/nicotine status: current every day tobacco/nicotine user cigarettes Packs smoked per day: 1 Years cigarettes smoked: 20 [ Other cigarette details: Hx of 1 PPD x 20 Years, started at age 27] Quit status (tobacco/nicotine): considering quitting Second hand smoke exposure: Yes Alcohol intake: never Substance/Drug Use: former Lives independently: Yes Household members: spouse Marital status: Number of children: 3 Current occupational status: disabled Do you think of yourself as: Straight/Heterosexual Current gender identity: Female Physical Exam Const: COMMON NORMALS: no acute distress GENERAL APPEARANCE: cooperative; not ill appearing and not frail appearing HENMT: COMMON NORMALS: normocephalic, atraumatic and Normal external nose present HEAD & SCALP: normocephalic and atraumatic FACE & SINUS: normal facial exam and face symmetric NOSE: Normal external nose present Eye: COMMON NORMALS: Equal, round and reactive pupils present and EOMs intact bilaterally PUPIL: Yes Equal, round and reactive pupils present Neck/C-Spine: GENERAL: Yes trachea midline Chest: CHEST: Yes Symmetrical chest wall rise Resp: COMMON NORMALS: normal respiratory effort, No retractions, No use of accessory muscles and clear to auscultation bilaterally AUSCULTATION: clear to auscultation bilaterally Cardio: COMMON NORMALS: regular rate and regular rhythm RATE: regular rate RHYTHM: regular rhythm GI: COMMON NORMALS: Normal to inspection, nondistended, normoactive bowel sounds present Extremity: COMMON NORMALS: no pedal edema Neuro: JEANINE COMA SCALE: document GCS findings Jeanine coma scale eye opening: Spontaneous Jeanine coma scale verbal response: Orientated Jeanine coma scale motor response: [place]bey commands [place] coma scale total score: 15 SENSORY EXAM: Yes extremities (intact) Psych: COMMON NORMALS: speech normal SPEECH: Yes normal speech Skin: COMMON NORMALS: no rashes or lesions noted GENERAL SKIN EXAM: no rashes or lesions noted Course Vital Signs: Vital signs: Vital Signs Temperature 98.0 F 08/25/24 20:40 Pulse Rate 101 H 08/25/24 23:47 Respiratory Rate 16 08/25/24 23:47 Blood Pressure 119/68 08/25/24 23:47 Pulse Oximetry 94 08/25/24 23:47 Oxygen Delivery Me thod Room Air 08/25/24 23:47 MDM - Abdominal Pain Medical Decision Making This patient has diffuse tenderness, otherwise benign exam. Her white blood cell count is 19, but with a normal shift. Other laboratory findings are normal. Her symptoms are essentially the same as any of her prior episodes of abdominal pain. She is improved after Dilaudid and Zofran and wants to go home. She will be discharged Lab Data 08/25/24 21:42 08/25/24 21:42 Labs/Radiology: Laboratory Results WBC 19.03 10^3/uL (3.29-11.43) H 08/25/24 21:42 RBC 4.35 10^6/uL (3.85-5.65) 08/25/24 21:42 Hgb 14.20 g/dL (11.27-16.99) 08/25/24 21:42 Hct 43.5 % (36-47) 08/25/24 21:42 MCV 100.0 fl (85-98) H 08/25/24 21:42 MCH 32.6 pg (27-33) 08/25/24 21:42 MCHC 32.6 g/dL (30-55) 08/25/24 21:42 RDW 12.9 % (12.1-15.1) 08/25/24 21:42 Plt Count 208 10^3/cmm (157-399) 08/25/24 21:42 MPV 9.7 fL (7.4-10.4) 08/25/24 21:42 Neut % (Auto) 78.1 % 08/25/24 21:42 Lymph % (Auto) 13.0 % 08/25/24 21:42 [place] % (Auto) 6.1 % 08/25/24 21:42 Eos % (Auto) 1.7 % 08/25/24 21:42 Baso % (Auto) 0.6 % 08/25/24 21:42 Neut # (Auto) 14.86 10^3/uL (1.8-7.7) H 08/25/24 21:42 Lymph # (Auto) 2.5 10^3/uL (0.8-4.8) 08/25/24 21:42 [place] # (Auto) 1.2 10^3/uL (0.2-0.9) H 08/25/24 21:42 Eos # (Auto) 0.3 10^3/uL (0.0-0.8) 08/25/24 21:42 Baso # (Auto) 0.1 10^3/uL (0.0-0.1) 08/25/24 21:42 Nucleated RBC % (auto) 0 % 08/25/24 21:42 Nucleated RBCs # 0.0 /100WBC 08/25/24 21:42 Sodium 136 mmol/L (136-145) 08/25/24 21:42 Potassium 3.7 mmol/L (3.5-5.1) 08/25/24 21:42 Chloride 101 mmol/L (98-107) 08/25/24 21:42 Carbon Dioxide 22 mmol/L (22-29) 08/25/24 21:42 Anion Gap 16.7 (5-19) 08/25/24 21:42 BUN 10 mg/dL (6-20) 08/25/24 21:42 Creatinine 0.8 mg/dL (0.5-0.9) 08/25/24 21:42 GFR Calculation 74.2 mL/min (90-130) L 08/25/24 21:42 Glucose 105 mg/dL (65-115) 08/25/24 21:42 Calculated Osmolality 281 mOsm/kg (285-295) L 08/25/24 21:42 Calcium 9.3 mg/dL (8.5-10.5) 08/25/24 21:42 Total Bilirubin 0.3 mg/dL (0.15-1.2) 08/25/24 21:42 AST 15 U/L (0-32) 08/25/24 21:42 ALT 11 U/L (0-33) 08/25/24 21:42 Alkaline Phosphatase 127 U/L (35-105) H 08/25/24 21:42 Total Protein 7.3 g/dL (6.6-8.7) 08/25/24 21:42 Albumin 4.0 g/dL (3.5-5.2) 08/25/24 21:42 Globulin 3.3 g/dL (1.3-4.6) 08/25/24 21:42 Urine Color Yellow (Yellow) 08/25/24 22:21 Urine Appearance Clear (CLEAR) 08/25/24 22:21 Urine pH 7.0 (5-7) 08/25/24 22:21 Ur Specific [place] 1.007 (1.005-1.030) 08/25/24 22:21 Urine Protein Negative (Negative) 08/25/24 22:21 Urine Glucose (UA) Negative (Normal) 08/25/24 22:21 Urine Ketones Negative (Negative) 08/25/24 22:21 Urine Blood Negative (Negative) 08/25/24 22:21 Urine Nitrate Negative (Negative) 08/25/24 22:21 Urine Bilirubin Negative (Negative) 08/25/24 22:21 Urine Urobilinogen 0.2 mg/dL (Negative) 08/25/24 22:21 Ur Leukocyte Esterase 1+ (Negative) A 08/25/24 22:21 Urine RBC 0-2 /hpf (0-2) 08/25/24 22:21 Urine WBC 11-20 /hpf (0-5) H 08/25/24 22:21 Ur Squamous Epith Cells 0-5 /hpf (0-5) 08/25/24 22:21 Amorphous Sediment Not Reportable 08/25/24 22:21 Urine Bacteria None seen /hpf (NONE) 08/25/24 22:21 Hyaline Casts 0-4 /lpf H 08/25/24 22:21 No radiology studies performed this visit Discharge Plan Discharge Patient Disposition: Home Clinical Impression: Chronic abdominal pain Condition: Stable Prescriptions: No Action promethazine 25 mg suppository 25 mg [place] Q6H PRN pantoprazole 40 mg tablet,delayed release (DR/EC) 40 mg PO BID (DME) SOLE Supports See Rx Instructions .Route .MEDSUPPLY Qty: 1 0RF Rx Instructions: As directed PRE-Auth prednisolone acetate 1 % drops,suspension ophthalmic (eye) lubiprostone 8 mcg capsule PO fluticasone propionate [Flonase Allergy Relief] 50 mcg/actuation spray,suspension 1 spray intranasal DAILY PRN (Reason: nasal congestion) 30 Days Qty: 16 2RF Rx Instructions: administer into each nostril dicyclomine 10 mg capsule 10 mg PO BID PRN lamotrigine 200 mg tablet 200 mg PO DAILY@06 Qty: 30 2RF Rx Instructions: Take one tablet by mouth every morning quetiapine 50 mg tablet See Rx Instructions PO .COMPLEX Qty: 90 2RF Rx Instructions: Take two tablets by mouth every morning, and one tablet at bedtime trazodone 300 mg tablet 300 mg PO .q hs PRN (Reason: sleep) Qty: 30 2RF Rx Instructions: Take one tablet daily at bedtime, if needed for sleep Trintellix 20 mg tablet 20 mg PO .q am Qty: 30 2RF Rx Instructions: Take one tablet once daily ondansetron HCl 4 mg tablet 4 mg PO Q8H sucralfate [Carafate] 1 gram tablet 1 g PO QID polyethylene glycol 3350 [Miralax] 17 gram/dose powder 4 g PO DAILY quetiapine 25 mg tablet 25 mg PO BID PRN (Reason: agitation) Qty: 60 2RF Rx Instructions: Take one tablet up to twice a day, if needed, for agitation nystatin 100,000 unit/gram powder 1 applic topical BID Qty: 30 0RF Rx Instructions: apply locally to B/L groin folds albuterol sulfate 90 mcg/actuation HFA aerosol inhaler See Rx Instructions .ROUTE .COMPLEX Qty: 9 0RF Dose Instruction: INHALE 2 PUFFS BY MOUTH EVERY 6 HOURS NEEDED FOR SHORTNESS OF BREATH OR WHEEZING Rx Instructions: INHALE 2 PUFFS BY MOUTH EVERY 6 HOURS NEEDED FOR SHORTNESS OF BREATH OR WHEEZING acetaminophen 500 mg Tablet 1,000 mg PO Q6H PRN (Reason: Pain) Discharge Orders: Discharge ED (Routine); Ordered 08/26/24 Ordered By: Chivo Deleon Referrals: Dara Tavera, EMERGENCY PLANNING AND RESPONSE MANAGER [Primary Care Provider] - 1-3 days Patient Instructions: Abdominal Pain (ED), Opioid Safety, Pain Management Print Language: South African Coding Level of Care Code ED Thread Reeler for Shellie Guallpa
[2024-08-25] MEDS: ondansetron 2 mg/ML SDV 2 mL 4 MG IM (23:46)
[2024-08-25] MEDS: HYDROmorphone 1 mg/mL INJ 1ml 2 MG IM (23:46)
[2024-08-25 23:47] VITALS: BP 119/68; PULSE 101; RESP 16; O2SAT 94
== END 2024-08-26 00:16 | disposition home or self-care (01) ==
PROVIDERS: Emergency Provider Emergency Medicine; PCP Registered Nurse
DX: R10.9 Unspecified abdominal pain (principal); F17.210 Nicotine dependence, cigarettes, uncomplicated; J44.9 Chronic obstructive pulmonary disease, unspecified
CPT/HCPCS: 36415; 80053; 81001; 85025; 96372; 99284; J1171; J2405

== ENCOUNTER → 2024-09-09 08:22 | Outpatient (BNVA) | payer MEDICARE, OTHER, SELFPAY | PROVIDERS: PCP Registered Nurse; Visit Provider Registered Nurse | DX: Z79.899 Other long term (current) drug therapy (principal) | CPT/HCPCS: 80061; 83036 ==

== ENCOUNTER 2024-09-29 22:13 | Emergency (ER) | payer MEDICARE, MEDICAID, SELFPAY ==
[2024-09-29 22:14] VITALS: BP 109/63; PULSE 82; RESP 15; TEMP 36.7; O2SAT 94; BMI 30.2
[2024-09-29 23:17] VITALS: BP 102/45; PULSE 81; RESP 16; O2SAT 96
[2024-09-30] VITALS: BP 103/48; PULSE 70; RESP 16; O2SAT 92
--- NOTE | 2024-09-30 00:30 | W.ED.ABDPA2 ---
Documented by User: ALBERT Byrd 09/30/24 01:04 HPI - Abdominal Pain General: Chief Complaint: Abdominal Pain Stated Complaint: abd pain Time Seen by Provider: 09/29/24 22:17 Source: patient Mode of arrival: EMS Limitations: no limitations History of Present Illness: Patient is a 58-year-old female well-known to the emergency department here who is presenting by ambulance for chronic abdominal pain. States she has been having pain to the left lower quadrant, normally is to the epigastric region. States that she was diagnosed with diverticulitis recently, however denies any antibiotics. Does note she was prescribed rifaximin for IBS-D but she did not fill this due to it being too expensive. Also notes she is due to have colonoscopy on the of this month, but pain has been so severe. Significantly worsened over the past hour, she is reporting associated nausea and intermittent diarrhea. Requesting something prepared at this time. Vitals unremarkable. MD elicited complaint: abdominal pain Onset (ago): hour(s) Pain Consistency: constant Location: LLQ Severity: severe Radiation: none Exacerbating factors: nothing Relieving factors: nothing Associated Symptoms: Reports diarrhea and nausea; Denies bloating, change in stool character, chills, constipation, dysuria, fever(s), hematochezia and vomiting Related Data Home Medications ?Medication ?Instructions ?Recorded ?Confirmed acetaminophen 500 mg tablet 1,000 mg PO Q6H PRN Pain 07/09/21 09/26/24 pantoprazole 40 mg tablet,delayed 40 mg PO BID 07/27/23 09/26/24 release promethazine 25 mg rectal 25 mg ME Q6H PRN 07/27/23 09/26/24 suppository ondansetron HCl 4 mg tablet 4 mg PO Q8H 01/22/24 09/26/24 prednisolone acetate 1 % eye drp ophthalmic (eye) 05/10/24 09/26/24 drops,suspension dicyclomine 10 mg capsule 10 mg PO BID PRN 05/27/24 09/26/24 polyethylene glycol 3350 17 4 g PO DAILY 05/27/24 09/26/24 gram/dose oral powder (Miralax) sucralfate 1 gram tablet (Carafate) 1 g PO QID 05/27/24 09/26/24 famotidine 20 mg tablet mg PO 09/23/24 09/26/24 lubiprostone 24 mcg capsule mcg PO 09/23/24 09/26/24 Previous Rx's ?Medication ?Instructions ?Recorded nystatin 100,000 unit/gram topical 1 applic topical BID #30 grams 06/16/22 powder SOLE Supports #1 ea 01/01/24 fluticasone propionate 50 1 spray intranasal DAILY PRN nasal 05/10/24 mcg/actuation nasal congestion 30 days #16 grams spray,suspension (Flonase Allergy Relief) lamotrigine 200 mg tablet 200 mg PO DAILY@06 #30 tabs 08/05/24 trazodone 300 mg tablet 300 mg PO .q hs PRN sleep #30 tabs 08/05/24 vortioxetine 20 mg tablet 20 mg PO .q am #30 tabs 08/05/24 (Trintellix) Rollator Walker #1 ea 09/06/24 albuterol sulfate 90 mcg/actuation See Rx Instructions .Route 09/09/24 aerosol inhaler .COMPLEX #9 grams quetiapine 25 mg tablet 25 mg PO BID PRN agitation #60 tabs 09/26/24 cholecalciferol (vitamin D3) 1,250 1,250 mcg PO .once a week 90 days 09/27/24 mcg (50,000 unit) capsule #12 caps quetiapine 50 mg tablet 50 mg PO BID #60 tabs 09/27/24 cefdinir 300 mg capsule 300 mg PO BID 7 days #14 caps 09/30/24 Allergies Allergy/AdvReac Type Severity Reaction Status Date / Time haloperidol (From Haldol) Allergy Severe unknown Verified 09/26/24 08:07 Penicillins Allergy Severe ALGY-Anaphy Verified 09/26/24 08:07 laxis sulfamethoxazole (From Allergy Severe ALGY-Hives Verified 09/26/24 08:07 Bactrim) Tetracyclines Allergy Severe ALGY-Hives Verified 09/26/24 08:07 gabapentin (From Neurontin) Allergy Intermediate ADR-Halluci Verified 09/26/24 08:07 nating ketorolac (From Toradol) Allergy Intermediate ALGY-Rash Verified 09/26/24 08:07 lithium Allergy Intermediate ADR-Halluci Verified 09/26/24 08:07 nating fentanyl Allergy Mild rash Verified 09/26/24 08:07 adhesive tape Allergy Rash Verified 09/26/24 08:07 codeine Allergy GI Verified 09/26/24 08:07 duloxetine (From Cymbalta) Allergy ALGY-Rash Verified 09/26/24 08:07 fluoxetine Allergy ADR-Migrain Verified 09/26/24 08:07 e metoclopramide (From Reglan) Allergy ADR-Shakine Verified 09/26/24 08:07 ss nitroglycerin Allergy ADV-Weaknes Verified 09/26/24 08:07 s tramadol Allergy Unknown Verified 09/26/24 08:07 trimethoprim (From Bactrim) Allergy ALGY-Hives Verified 09/26/24 08:07 ziprasidone (From Geodon) AdvReac Severe ADR-Halluci Verified 09/26/24 08:07 nating risperidone (From Risperdal) AdvReac ADR-Halluci Verified 09/26/24 08:07 nating Review of Systems General: Reports: 10 or more systems reviewed and unremarkable except in HPI and below Const: Denies: fever(s), chills, change in appetite, change in weight or diaphoresis ENMT: Denies: throat pain or hoarseness Card: Denies: chest pain, palpitations or lightheadedness Resp: Denies: dyspnea, productive cough or wheezing GI: Reports: abdominal pain, nausea and diarrhea; Denies: vomiting, constipation, bloating, change in stool character or hematochezia : Denies: flank pain, difficulty voiding, dysuria, urinary frequency or urinary urgency Musc: Denies: neck pain or back pain Skin/Breast: Denies: rash or new lesions Neuro: Denies: headache(s) or dizziness PFSH ED PFSH: Medical History Chronic gastritis without bleeding Insomnia Tobacco use disorder Opioid dependence, uncomplicated Cannabis dependence, uncomplicated Psychiatric care Tardive dyskinesia Esophageal stricture Cystitis cystica Restrictive lung disease Chronic back pain greater than 3 months duration Borderline personality disorder Schizoaffective disorder, bipolar type Urgency incontinence Neurogenic bladder Dysphagia COPD (chronic obstructive pulmonary disease) GERD without esophagitis Foreign body in bladder Bladder stone Chronic anxiety Surgical History H/O bladder repair surgery MESH REPAIR H/O esophagogastroduodenoscopy (09/21/20) H/O colonoscopy with polypectomy History of foot surgery sx in 2009. Screws placed by Dr. Don. S/P bronchoscopy with biopsy History of ureter stent History of breast biopsy Hx of cholecystectomy H/O: hysterectomy History of appendectomy Family History Mother No problems noted. Father No problems noted. Other Asthma Cancer Diabetes Heart disease Social History Smoking and tobacco/nicotine status: current every day tobacco/nicotine user cigarettes Packs smoked per day: 1 Years cigarettes smoked: 20 [ Other cigarette details: Hx of 1 PPD x 20 Years, started at age 27] Quit status (tobacco/nicotine): considering quitting Second hand smoke exposure: Yes Alcohol intake: never Substance/Drug Use: former Lives independently: Yes Household members: spouse Marital status: Number of children: 3 Current occupational status: disabled Do you think of yourself as: Straight/Heterosexual Current gender identity: Female Physical Exam Const: COMMON NORMALS: no acute distress, average body habitus, patient oriented x3, no limitations, healthy appearing, alert and well nourished GENERAL APPEARANCE: cooperative and comfortable ORIENTATION/CONSCIOUSNESS: Yes awake HENMT: COMMON NORMALS: normocephalic, atraumatic, hearing grossly normal bilaterally, external ears normal, Normal external nose present, Normal nasal mucous membranes and turbinates present and moist oral mucous membranes HEAD & SCALP: normocephalic and atraumatic NOSE: Normal external nose present and Normal nasal mucous membranes and turbinates present EXTERNAL EAR: Yes external ears normal Eye: COMMON NORMALS: Equal, round and reactive pupils present, EOMs intact bilaterally, conjunctivae normal and normal visual cortes by confrontation CONJUNCTIVA: Yes conjunctivae normal PUPIL: Yes Equal, round and reactive pupils present Neck/C-Spine: COMMON NORMALS: full ROM, supple, no meningeal signs and no JVD Resp: COMMON NORMALS: normal respiratory effort, No retractions, No use of accessory muscles and clear to auscultation bilaterally AUSCULTATION: clear to auscultation bilaterally, no crackles, no rales, no rhonchi and no wheezes Cardio: COMMON NORMALS: no JVD, regular rate, regular rhythm, S1 normal heart sound present, S2 normal heart sound present, No gallops present (Cardio), No clicks present (Cardio), No murmurs present (Cardio), No rub (Cardio) and Peripheral pulses 2+ throughout RATE: regular rate RHYTHM: regular rhythm HEART SOUNDS: S1 normal heart sound present and S2 normal heart sound present PERIPHERAL PULSES: Peripheral pulses 2+ throughout GI: COMMON NORMALS: Normal to inspection, nondistended, normoactive bowel sounds present, Soft to palpation, No hepatosplenomegaly present and no masses AUSCULTATION: Yes normoactive bowel sounds PALPATION: Yes Soft to palpation, Yes Tenderness to palpation present (GI) (Diffuse to very light palpation), No Guarding due to palpation present (GI), No Rigid due to palpation and Yes No hepatosplenomegaly present RECTAL EXAM: deferred Extremity: COMMON NORMALS: normal to inspection and full ROM Neuro: COMMON NORMALS: patient oriented x3, moves all extremities, no focal motor deficits and no sensory deficits noted SENSORIUM/ORIENTATION: Yes alert MENINGEAL SIGNS: Yes no meningeal signs Psych: COMMON NORMALS: mental status grossly normal, cooperative and speech normal SPEECH: Yes normal speech Skin: COMMON NORMALS: no rashes or lesions noted GENERAL SKIN EXAM: no rashes or lesions noted Course Vital Signs: Vital signs: Vital Signs Temperature 98.0 F 09/29/24 22:14 Pulse Rate 70 09/30/24 00:00 Respiratory Rate 16 09/30/24 00:00 Blood Pressure 103/48 09/30/24 00:00 Pulse Oximetry 92 09/30/24 00:00 Oxygen Delivery Me thod Room Air 09/30/24 00:00 MDM - Abdominal Pain Medical Decision Making Patient presenting here with continued abdominal pain, of which she has been seen here multiple times in the past. Normally reports that it is epigastric, currently set to undergo colonoscopy she states at [facility] later this month. Diffusely tender to palpation on exam, requesting pain medications. She was given Dilaudid and Zofran for her nausea, blood work was all unremarkable potential UTI on urinalysis for which she will be treated with cefdinir. Discharged in stable condition with continued plan for follow-up. Lab Data 09/30/24 00:29 09/30/24 00:29 Labs/Radiology: Laboratory Results WBC 13.55 10^3/uL (3.29-11.43) H 09/30/24 00:29 RBC 3.85 10^6/uL (3.85-5.65) 09/30/24 00: Hgb 12.40 g/dL (11.27-16.99) 09/30/24: Hct 37.4 % (36-47) 09/30/24: MCV 97.1 fl (85-98) 09/30/24 00: MCH 32.2 pg (27-33) 09/30/24: MCHC 33.2 g/dL (30-55) 09/30/24 00: RDW 13.3 % (12.1-15.1) 09/30/24: Plt Count 212 10^3/cmm (157-399) 09/30/24: MPV 9.5 fL (7.4-10.4) 09/30/24 00: Neut % (Auto) 72.4 % 09/30/24 00: Lymph % (Auto) 17.3 % 09/30/24: Holmes % (Auto) 7.6 % 09/30/24 00: Eos % (Auto) 1.8 % 09/30/24 00: Baso % (Auto) 0.6 % 09/30/24 00: Neut # (Auto) 9.81 10^3/uL (1.8-7.7) H 09/30/24 00: Lymph # (Auto) 2.3 10^3/uL (0.8-4.8) 09/30/24 00: Holmes # (Auto) 1.0 10^3/uL (0.2-0.9) H 09/30/24 00: Eos # (Auto) 0.3 10^3/uL (0.0-0.8) 09/30/24 00: Baso # (Auto) 0.1 10^3/uL (0.0-0.1) 09/30/24 00: Nucleated RBC % (auto) 0 % 09/30/24 00: Nucleated RBCs # 0.0 /100WBC 09/30/24 00: Sodium 139 mmol/L (136-145) 09/30/24: Potassium 3.9 mmol/L (3.5-5.1) 09/30/24 Chloride 106 mmol/L (98-107) 09/30/24 Carbon Dioxide 22 mmol/L (22-29) 09/30/24 Anion Gap 14.9 (5-19) 09/30/24 BUN 17 mg/dL (6-20) 09/30/24 Creatinine 0.8 mg/dL (0.5-0.9) 09/30/24 GFR Calculation 74.2 mL/min (90-130) L 09/30/24 Glucose 102 mg/dL (65-115) 09/30/24 Calculated Osmolality 290 mOsm/kg (285-295) 09/30/24 Calcium 9.0 mg/dL (8.5-10.5) 09/30/24 Total Bilirubin 0.2 mg/dL (0.15-1.2) 09/30/24 AST 13 U/L (0-32) 09/30/24 ALT 11 U/L (0-33) 09/30/24 Alkaline Phosphatase 92 U/L (35-105) 09/30/24 Total Protein 6.3 g/dL (6.6-8.7) L 09/30/24 Albumin 3.8 g/dL (3.5-5.2) 09/30/24 Globulin 2.5 g/dL (1.3-4.6) 09/30/24 Lipase 19 U/L (13-60) 09/30/24 Urine Color Yellow (Yellow) 09/30/24 Urine Appearance Clear (CLEAR) 09/30/24 Urine pH 5 (5-7) 09/30/24 Ur Specific [place] 1.010 (1.005-1.030) 09/30/24 Urine Protein Neg (Negative) 09/30/24 Urine Glucose (UA) Norm (Normal) 09/30/24 00 Urine Ketones Negative (Negative) 09/30/24 Urine Blood 2+ (Negative) H 09/30/24 Urine Nitrate Negative (Negative) 04/14/25 00:20 Urine Bilirubin Neg (Negative) 09/30/24 00:20 Urine Urobilinogen Norm mg/dL (Negative) 09/30/24 00:20 Ur Leukocyte Esterase 1+ (Negative) H 09/30/24 00:20 Urine RBC 0-2 /hpf (0-2) 09/30/24 00:20 Urine WBC 11-20 /hpf (0-5) H 09/30/24 00:20 Ur Squamous Epith Cells 0-5 /hpf (0-5) 09/30/24 00:20 Amorphous Sediment Not Reportable 09/30/24 00:20 Urine Bacteria None seen /hpf (NONE) 09/30/24 00:20 Hyaline Casts 0-4 /lpf H 09/30/24 00:20 No radiology studies performed this visit Discharge Plan Discharge Patient Disposition: Home Clinical Impression: Abdominal pain Qualifiers: Abdominal location: generalized Qualified Code(s): R10.84 - Generalized abdominal pain Urinary tract infection Qualifiers: Urinary tract infection type: acute cystitis Hematuria presence: without hematuria Qualified Code(s): N30.00 - Acute cystitis without hematuria Condition: Stable Prescriptions: New cefdinir 300 mg capsule 300 mg PO BID 7 Days Qty: 14 0RF No Action promethazine 25 mg suppository 25 mg ME Q6H PRN pantoprazole 40 mg tablet,delayed release (DR/EC) 40 mg PO BID (DME) SOLE Supports See Rx Instructions .Route .MEDSUPPLY Qty: 1 0RF Rx Instructions: As directed PRE-Auth prednisolone acetate 1 % drops,suspension ophthalmic (eye) fluticasone propionate [Flonase Allergy Relief] 50 mcg/actuation spray,suspension 1 spray intranasal DAILY PRN (Reason: nasal congestion) 30 Days Qty: 16 2RF Rx Instructions: administer into each nostril dicyclomine 10 mg capsule 10 mg PO BID PRN lamotrigine 200 mg tablet 200 mg PO DAILY@06 Qty: 30 2RF Rx Instructions: Take one tablet by mouth every morning trazodone 300 mg tablet 300 mg PO .q hs PRN (Reason: sleep) Qty: 30 2RF Rx Instructions: Take one tablet daily at bedtime, if needed for sleep Trintellix 20 mg tablet 20 mg PO .q am Qty: 30 2RF Rx Instructions: Take one tablet once daily quetiapine 25 mg tablet 25 mg PO BID PRN (Reason: agitation) Qty: 60 2RF Rx Instructions: Take one tablet up to twice a day, if needed, for agitation quetiapine 50 mg tablet 50 mg PO BID Qty: 60 2RF Rx Instructions: Take one tablet by mouth every morning and night famotidine 20 mg tablet PO lubiprostone 24 mcg capsule PO ondansetron HCl 4 mg tablet 4 mg PO Q8H sucralfate [Carafate] 1 gram tablet 1 g PO QID polyethylene glycol 3350 [Miralax] 17 gram/dose powder 4 g PO DAILY nystatin 100,000 unit/gram powder 1 applic topical BID Qty: 30 0RF Rx Instructions: apply locally to B/L groin folds (DME) Rollator Walker See Rx Instructions .Route .MEDSUPPLY Qty: 1 0RF Rx Instructions: As directed HOME: Length of need 4 months albuterol sulfate 90 mcg/actuation HFA aerosol inhaler See Rx Instructions .ROUTE .COMPLEX Qty: 9 0RF Dose Instruction: INHALE 2 PUFFS BY MOUTH EVERY 6 HOURS NEEDED FOR SHORTNESS OF BREATH OR WHEEZING Rx Instructions: INHALE 2 PUFFS BY MOUTH EVERY 6 HOURS NEEDED FOR SHORTNESS OF BREATH OR WHEEZING cholecalciferol (vitamin D3) 1,250 mcg (50,000 unit) capsule 1,250 mcg PO .once a week 90 Days Qty: 12 0RF acetaminophen 500 mg Tablet 1,000 mg PO Q6H PRN (Reason: Pain) Discharge Orders: Discharge ED (Routine); Ordered 09/30/24 Ordered By: Edgar Brown Referrals: Dara Tavera FNP [Primary Care Provider] - Patient Instructions: Abdominal Pain (ED), Opioid Safety, Pain Management Activity Restrictions/Additional Instructions: Antibiotics for UTI. Continue follow-up plan with GI. Continue taking home medications. Take pain medications at home. Drink plenty of water and return with any new or worsening. Print Language: Hong Konger Coding Level of Care Code ED Rn Testing for Chg Fwd Documented by User: Chivo Ronnell DO Pancho 09/30/24 01:23 HPI - Abdominal Pain General: Chief Complaint: Abdominal Pain Stated Complaint: abd pain Time Seen by Provider: 09/29/24 22:17 Related Data Home Medications ?Medication ?Instructions ?Recorded ?Confirmed acetaminophen 500 mg tablet 1,000 mg PO Q6H PRN Pain 07/09/21 09/26/24 pantoprazole 40 mg tablet,delayed 40 mg PO BID 07/27/23 09/26/24 release promethazine 25 mg rectal 25 mg ME Q6H PRN 07/27/23 09/26/24 suppository ondansetron HCl 4 mg tablet 4 mg PO Q8H 01/22/24 09/26/24 prednisolone acetate 1 % eye drp ophthalmic (eye) 05/10/24 09/26/24 drops,suspension dicyclomine 10 mg capsule 10 mg PO BID PRN 05/27/24 09/26/24 polyethylene glycol 3350 17 4 g PO DAILY 05/27/24 09/26/24 gram/dose oral powder (Miralax) sucralfate 1 gram tablet (Carafate) 1 g PO QID 05/27/24 09/26/24 famotidine 20 mg tablet mg PO 09/23/24 09/26/24 lubiprostone 24 mcg capsule mcg PO 09/23/24 09/26/24 Previous Rx's ?Medication ?Instructions ?Recorded nystatin 100,000 unit/gram topical 1 applic topical BID #30 grams 06/16/22 powder SOLE Supports #1 ea 01/01/24 fluticasone propionate 50 1 spray intranasal DAILY PRN nasal 05/10/24 mcg/actuation nasal congestion 30 days #16 grams spray,suspension (Flonase Allergy Relief) lamotrigine 200 mg tablet 200 mg PO DAILY@06 #30 tabs 08/05/24 trazodone 300 mg tablet 300 mg PO .q hs PRN sleep #30 tabs 08/05/24 vortioxetine 20 mg tablet 20 mg PO .q am #30 tabs 08/05/24 (Trintellix) Rollator Walker #1 ea 09/06/24 albuterol sulfate 90 mcg/actuation See Rx Instructions .Route 03/24/25 aerosol inhaler .COMPLEX #9 grams quetiapine 25 mg tablet 25 mg PO BID PRN agitation #60 tabs 09/26/24 cholecalciferol (vitamin D3) 1,250 1,250 mcg PO .once a week 90 days 09/27/24 mcg (50,000 unit) capsule #12 caps quetiapine 50 mg tablet 50 mg PO BID #60 tabs 09/27/24 cefdinir 300 mg capsule 300 mg PO BID 7 days #14 caps 09/30/24 Allergies Allergy/AdvReac Type Severity Reaction Status Date / Time haloperidol (From Haldol) Allergy Severe unknown Verified 09/26/24 08:07 Penicillins Allergy Severe ALGY-Anaphy Verified 09/26/24 08:07 laxis sulfamethoxazole (From Allergy Severe ALGY-Hives Verified 09/26/24 08:07 Bactrim) Tetracyclines Allergy Severe ALGY-Hives Verified 09/26/24 08:07 gabapentin (From Neurontin) Allergy Intermediate ADR-Halluci Verified 09/26/24 08:07 nating ketorolac (From Toradol) Allergy Intermediate ALGY-Rash Verified 09/26/24 08:07 lithium Allergy Intermediate ADR-Halluci Verified 09/26/24 08:07 nating fentanyl Allergy Mild rash Verified 09/26/24 08:07 adhesive tape Allergy Rash Verified 09/26/24 08:07 codeine Allergy GI Verified 09/26/24 08:07 duloxetine (From Cymbalta) Allergy ALGY-Rash Verified 09/26/24 08:07 fluoxetine Allergy ADR-Migrain Verified 09/26/24 08:07 e metoclopramide (From Reglan) Allergy ADR-Shakine Verified 09/26/24 08:07 ss nitroglycerin Allergy ADV-Weaknes Verified 09/26/24 08:07 s tramadol Allergy Unknown Verified 09/26/24 08:07 trimethoprim (From Bactrim) Allergy ALGY-Hives Verified 09/26/24 08:07 ziprasidone (From Geodon) AdvReac Severe ADR-Halluci Verified 09/26/24 08:07 nating risperidone (From Risperdal) AdvReac ADR-Halluci Verified 09/26/24 08:07 nating [facility] ED PFSH: Medical History Chronic gastritis without bleeding Insomnia Tobacco use disorder Opioid dependence, uncomplicated Cannabis dependence, uncomplicated Psychiatric care Tardive dyskinesia Esophageal stricture Cystitis cystica Restrictive lung disease Chronic back pain greater than 3 months duration Borderline personality disorder Schizoaffective disorder, bipolar type Urgency incontinence Neurogenic bladder Dysphagia COPD (chronic obstructive pulmonary disease) GERD without esophagitis Foreign body in bladder Bladder stone Chronic anxiety Surgical History H/O bladder repair surgery MESH REPAIR H/O esophagogastroduodenoscopy (09/21/20) H/O colonoscopy with polypectomy History of foot surgery sx in 2009. Screws placed by Dr. Don. S/P bronchoscopy with biopsy History of ureter stent History of breast biopsy Hx of cholecystectomy H/O: hysterectomy History of appendectomy Family History Mother No problems noted. Father No problems noted. Other Asthma Cancer Diabetes Heart disease Social History Smoking and tobacco/nicotine status: current every day tobacco/nicotine user cigarettes Packs smoked per day: 1 Years cigarettes smoked: 20 [ Other cigarette details: Hx of 1 PPD x 20 Years, started at age 27] Quit status (tobacco/nicotine): considering quitting Second hand smoke exposure: Yes Alcohol intake: never Substance/Drug Use: former Lives independently: Yes Household members: spouse Marital status: Number of children: 3 Current occupational status: disabled Do you think of yourself as: Straight/Heterosexual Current gender identity: Female Course Vital Signs: Vital signs: Vital Signs Temperature 98.0 F 09/29/24 22:14 Pulse Rate 70 09/30/24 00:00 Respiratory Rate 16 09/30/24 00:00 Blood Pressure 103/48 09/30/24 00:00 Pulse Oximetry 92 09/30/24 00:00 Oxygen Delivery Me thod Room Air 09/30/24 00:00 MDM - Abdominal Pain Medical Decision Making Patient presenting here with continued abdominal pain, of which she has been seen here multiple times in the past. Normally reports that it is epigastric, currently set to undergo colonoscopy she states at [facility] later this month. Diffusely tender to palpation on exam, requesting pain medications. She was given Dilaudid and Zofran for her nausea, blood work was all unremarkable potential UTI on urinalysis for which she will be treated with cefdinir. Discharged in stable condition with continued plan for follow-up. This patient was originally seen by Mr. Stephanie PA-C.? I agree with his history, evaluation, and treatment. Lab Data 09/30/24 00:29 09/30/24 00:29 Labs/Radiology: Laboratory Results WBC 13.55 10^3/uL (3.29-11.43) H 09/30/24 00:29 RBC 3.85 10^6/uL (3.85-5.65) 09/30/24 00:29 Hgb 12.40 g/dL (11.27-16.99) 09/30/24 00: Hct 37.4 % (36-47) 09/30/24 00: MCV 97.1 fl (85-98) 09/30/24 00: MCH 32.2 pg (27-33) 09/30/24 00: MCHC 33.2 g/dL (30-55) 09/30/24 00: RDW 13.3 % (12.1-15.1) 09/30/24 00: Plt Count 212 10^3/cmm (157-399) 09/30/24 00: MPV 9.5 fL (7.4-10.4) 09/30/24 00: Neut % (Auto) 72.4 % 09/30/24 00: Lymph % (Auto) 17.3 % 09/30/24 00: Holmes % (Auto) 7.6 % 09/30/24 00: Eos % (Auto) 1.8 % 09/30/24 00:29 Baso % (Auto) 0.6 % 09/30/24 00:29 Neut # (Auto) 9.81 10^3/uL (1.8-7.7) H 09/30/24 00: Lymph # (Auto) 2.3 10^3/uL (0.8-4.8) 09/30/24 00:29 Holmes # (Auto) 1.0 10^3/uL (0.2-0.9) H 09/30/24 00: Eos # (Auto) 0.3 10^3/uL (0.0-0.8) 09/30/24 00:29 Baso # (Auto) 0.1 10^3/uL (0.0-0.1) 09/30/24: Nucleated RBC % (auto) 0 % 09/30/24 Nucleated RBCs # 0.0 /100WBC 09/30/24 00: Sodium 139 mmol/L (136-145) 09/30/24: Potassium 3.9 mmol/L (3.5-5.1) 09/30/24: Chloride 106 mmol/L (98-107) 09/30/24: Carbon Dioxide 22 mmol/L (22-29) 09/30/24: Anion Gap 14.9 (5-19) 09/30/24: BUN 17 mg/dL (6-20) 09/30/24: Creatinine 0.8 mg/dL (0.5-0.9) 09/30/24 GFR Calculation 74.2 mL/min (90-130) L 09/30/24: Glucose 102 mg/dL (65-115) 09/30/24: Calculated Osmolality 290 mOsm/kg (285-295) 09/30/24 Calcium 9.0 mg/dL (8.5-10.5) 09/30/24: Total Bilirubin 0.2 mg/dL (0.15-1.2) 09/30/24 00: AST 13 U/L (0-32) 09/30/24: ALT 11 U/L (0-33) 09/30/24: Alkaline Phosphatase 92 U/L (35-105) 09/30/24 00: Total Protein 6.3 g/dL (6.6-8.7) L 09/30/24: Albumin 3.8 g/dL (3.5-5.2) 09/30/24: Globulin 2.5 g/dL (1.3-4.6) 09/30/24: Lipase 19 U/L (13-60) 09/30/24 00: Urine Color Yellow (Yellow) 09/30/24: Urine Appearance Clear (CLEAR) 04/14/25 00:20 Urine pH 5 (5-7) 09/30/24 00:20 Ur Specific [place] 1.010 (1.005-1.030) 09/30/24 00:20 Urine Protein Neg (Negative) 09/30/24 00:20 Urine Glucose (UA) Norm (Normal) 09/30/24 00:20 Urine Ketones Negative (Negative) 09/30/24 00:20 Urine Blood 2+ (Negative) H 09/30/24 00:20 Urine Nitrate Negative (Negative) 09/30/24 00:20 Urine Bilirubin Neg (Negative) 09/30/24 00:20 Urine Urobilinogen Norm mg/dL (Negative) 09/30/24 00:20 Ur Leukocyte Esterase 1+ (Negative) H 09/30/24 00:20 Urine RBC 0-2 /hpf (0-2) 09/30/24 00:20 Urine WBC 11-20 /hpf (0-5) H 09/30/24 00:20 Ur Squamous Epith Cells 0-5 /hpf (0-5) 09/30/24 00:20 Amorphous Sediment Not Reportable 09/30/24 00:20 Urine Bacteria None seen /hpf (NONE) 09/30/24 00:20 Hyaline Casts 0-4 /lpf H 09/30/24 00:20 Discharge Plan Discharge Patient Disposition: Home Clinical Impression: Abdominal pain Qualifiers: Abdominal location: generalized Qualified Code(s): R10.84 - Generalized abdominal pain Urinary tract infection Qualifiers: Urinary tract infection type: acute cystitis Hematuria presence: without hematuria Qualified Code(s): N30.00 - Acute cystitis without hematuria Condition: Stable Prescriptions: New cefdinir 300 mg capsule 300 mg PO BID 7 Days Qty: 14 0RF No Action promethazine 25 mg suppository 25 mg ME Q6H PRN pantoprazole 40 mg tablet,delayed release (DR/EC) 40 mg PO BID (DME) SOLE Supports See Rx Instructions .Route .MEDSUPPLY Qty: 1 0RF Rx Instructions: As directed PRE-Auth prednisolone acetate 1 % drops,suspension ophthalmic (eye) fluticasone propionate [Flonase Allergy Relief] 50 mcg/actuation spray,suspension 1 spray intranasal DAILY PRN (Reason: nasal congestion) 30 Days Qty: 16 2RF Rx Instructions: administer into each nostril dicyclomine 10 mg capsule 10 mg PO BID PRN lamotrigine 200 mg tablet 200 mg PO DAILY@06 Qty: 30 2RF Rx Instructions: Take one tablet by mouth every morning trazodone 300 mg tablet 300 mg PO .q hs PRN (Reason: sleep) Qty: 30 2RF Rx Instructions: Take one tablet daily at bedtime, if needed for sleep Trintellix 20 mg tablet 20 mg PO .q am Qty: 30 2RF Rx Instructions: Take one tablet once daily quetiapine 25 mg tablet 25 mg PO BID PRN (Reason: agitation) Qty: 60 2RF Rx Instructions: Take one tablet up to twice a day, if needed, for agitation quetiapine 50 mg tablet 50 mg PO BID Qty: 60 2RF Rx Instructions: Take one tablet by mouth every morning and night famotidine 20 mg tablet PO lubiprostone 24 mcg capsule PO ondansetron HCl 4 mg tablet 4 mg PO Q8H sucralfate [Carafate] 1 gram tablet 1 g PO QID polyethylene glycol 3350 [Miralax] 17 gram/dose powder 4 g PO DAILY nystatin 100,000 unit/gram powder 1 applic topical BID Qty: 30 0RF Rx Instructions: apply locally to B/L groin folds (DME) Rollator Walker See Rx Instructions .Route .MEDSUPPLY Qty: 1 0RF Rx Instructions: As directed HOME: Length of need 4 months albuterol sulfate 90 mcg/actuation HFA aerosol inhaler See Rx Instructions .ROUTE .COMPLEX Qty: 9 0RF Dose Instruction: INHALE 2 PUFFS BY MOUTH EVERY 6 HOURS NEEDED FOR SHORTNESS OF BREATH OR WHEEZING Rx Instructions: INHALE 2 PUFFS BY MOUTH EVERY 6 HOURS NEEDED FOR SHORTNESS OF BREATH OR WHEEZING cholecalciferol (vitamin D3) 1,250 mcg (50,000 unit) capsule 1,250 mcg PO .once a week 90 Days Qty: 12 0RF acetaminophen 500 mg Tablet 1,000 mg PO Q6H PRN (Reason: Pain) Discharge Orders: Discharge ED (Routine); Ordered 09/30/24 Ordered By: Edgar Brown Referrals: Dara Tavera, PACKAGING INSPECTOR [Primary Care Provider] - Patient Instructions: Abdominal Pain (ED), Opioid Safety, Pain Management Activity Restrictions/Additional Instructions: Antibiotics for UTI. Continue follow-up plan with GI. Continue taking home medications. Take pain medications at home. Drink plenty of water and return with any new or worsening. Print Language: Hong Konger Coding Level of Care Code ED Rn Testing for Shellie Guallpa
[2024-09-30 00:34] LABS: Basophils # 0.1 10^3/uL (0.0-0.1); Basophils % 0.6 %; Eosinophils # 0.3 10^3/uL (0.0-0.8); Eosinophils % 1.8 %; Hematocrit 37.4 % (36-47); Lymphocytes # 2.3 10^3/uL (0.8-4.8); Lymphocytes % 17.3 %; Mean Corpuscular HGB Conc 33.2 g/dL (30-55); Mean Corpuscular Hemoglobin 32.2 pg (27-33); Mean Corpuscular Volume 97.1 fl (85-98); Mean Platelet Volume 9.5 fL (7.4-10.4); Monocytes % 7.6 %; Neutrophils # 9.81 10^3/uL (1.8-7.7); Neutrophils % 72.4 %; Nucleated Red Blood Cells % 0 %; Platelet Count 212 10^3/cmm (157-399); Red Blood Count 3.85 10^6/uL (3.85-5.65); Red Cell Distribution Width 13.3 % (12.1-15.1); White Blood Count 13.55 10^3/uL (3.29-11.43)
[2024-09-30 00:35] LABS: Add Urine Microscopic? NO
[2024-09-30] MEDS: HYDROmorphone 0.5 MG/0.5 ML INJ IVP ×2 (00:35→01:52)
[2024-09-30] MEDS: sodium chloride 0.9% 1,000 ML 999 ML IV (00:35)
[2024-09-30] MEDS: ondansetron 2 mg/ML SDV 2 mL 4 MG IVP (00:35)
[2024-09-30 00:36] LABS: Bacteria Urine None Seen /hpf; Bilirubin Urine Neg (Negative); Blood Urine 2+ (Negative); Glucose Urine UA Norm (Normal); Hyaline Casts Urine 0-4 /lpf; Ketones Urine Negative (Negative); Leukocyte Esterase Urine 1+ (Negative); Nitrate Urine Negative (Negative); Protein Urine Neg (Negative); RBC Urine 0-2 /hpf (0-2); Squamous Epithelial Cell Urine 0-5 /hpf (0-5); Urine Appearance Clear (CLEAR); Urine Color Yellow (Yellow); Urobilinogen Urine Norm (Negative); pH Urine 5 (5-7)
[2024-09-30 00:37] LABS: Charge for UA Resulting for Rev
[2024-09-30 00:56] LABS: Alanine Aminotransferase 11 U/L (0-33); Albumin Level 3.8 g/dL (3.5-5.2); Alkaline Phosphatase 92 U/L (35-105); Anion Gap 14.9 (5-19); Aspartate Amino Transferase 13 U/L (0-32); Blood Urea Nitrogen 17 mg/dL (6-20); Carbon Dioxide 22 mmol/L (22-29); Chloride 106 mmol/L (98-107); Creatinine Clr Calc Pharmacy 74.3715; Globulin 2.5 g/dL (1.3-4.6); Glomerular Filtration Rate 74.2 mL/min (90-130); Glucose 102 mg/dL (65-115); Lipase 19 U/L (13-60); Osmolality Calculated 290 mOsm/kg (285-295); Potassium 3.9 mmol/L (3.5-5.1); Sodium 139 mmol/L (136-145); Total Bilirubin 0.2 mg/dL (0.15-1.2); Total Protein 6.3 g/dL (6.6-8.7)
[2024-09-30] MEDS: cefTRIAXone 1,000 mg SDV 1000 MG IVP (01:52)
[2024-09-30 02:02] VITALS: BP 105/54; PULSE 74; O2SAT 94
== END 2024-09-30 02:00 | disposition home or self-care (01) ==
PROVIDERS: Emergency Provider Physician Assistant; PCP Registered Nurse
DX: R10.84 Generalized abdominal pain (principal); N30.00 Acute cystitis without hematuria; J44.9 Chronic obstructive pulmonary disease, unspecified; F17.210 Nicotine dependence, cigarettes, uncomplicated
CPT/HCPCS: 80053; 81003; 83690; 85025; 96374; 96375; 96376; 99284; J0696; J1171; J2405; J7030

== ENCOUNTER 2024-10-05 16:39 | Emergency (ER) | payer MEDICARE, MEDICAID, SELFPAY ==
[2024-10-05 17:20] VITALS: BP 148/77; PULSE 85; RESP 18; TEMP 36.6; O2SAT 95; BMI 29.6
--- NOTE | 2024-10-05 17:40 | CTR_ITS ---
PROCEDURE INFORMATION: Exam: CT Abdomen And Pelvis With Contrast Exam date and time: 10/05/2024 6:32 PM Age: 58 years old Clinical indication: Abdominal pain; Generalized; Prior surgery; Surgery date: 6+ months; Surgery type: Gb. Appy. Hysterectomy. Bladder; C/O diffuse abd pain with diarrhea. Chronic history of abd pain. ; Additional info: Diffuse abdominal pain, diarrhea TECHNIQUE: Imaging protocol: Computed tomography of the abdomen and pelvis with contrast. Radiation optimization: All CT scans at this facility use at least one of these dose optimization techniques: automated exposure control; mA and/or kV adjustment per patient size (includes targeted exams where dose is matched to clinical indication); or iterative reconstruction. Contrast material: OMNI 350; Contrast volume: 100 ml; Contrast route: INTRAVENOUS (IV); COMPARISON: CT abdomen pelvis w con* [id number] 07/09/2024 9:03 PM RADIATION DOSE METRICS: Total DLP (mGy-cm): 635.07 FINDINGS: Lungs: Linear subsegmental atelectasis of the left lung base. Liver: Normal. No mass. Gallbladder and biliary ducts: Status post cholecystectomy. Normal post cholecystectomy prominence of the common bile duct and intrahepatic biliary ducts. Pancreas: Normal. No ductal dilation. Spleen: Normal. No splenomegaly. Adrenal glands: Normal. No mass. Kidneys and ureters: Punctate nonobstructing nephrolithiasis in the right kidney. No hydronephrosis or obstructing ureteral calculus. Stomach and bowel: Increased colonic stool burden suggesting constipation. No small or large bowel obstruction. Appendix: The appendix is not definitively identified however there are no secondary signs to suggest acute appendicitis. Intraperitoneal space: No intraperitoneal free air or fluid. Vasculature: Aortoiliac atherosclerosis. Lymph nodes: Unremarkable. No enlarged lymph nodes. Urinary bladder: Unremarkable as visualized. Reproductive: Status post hysterectomy. Bones/joints: Degenerative changes of the thoracolumbar spine. No acute osseous abnormality. Soft tissues: Postsurgical changes from left inguinal hernia repair. CT/CT abdomen pelvis w con* [id number] IMPRESSION: 1. No acute abnormality in the abdomen and pelvis. 2. Chronic findings as detailed in the body of the report.
--- NOTE | 2024-10-05 17:46 | W.ED.ABDPA2 ---
HPI - Abdominal Pain General: Chief Complaint: Abdominal Pain Stated Complaint: abdominal cramping/diaherra Time Seen by Provider: 10/05/24 17:20 Source: patient Mode of arrival: ambulatory Limitations: no limitations History of Present Illness: Patient is a 58-year-old female that presents to the emergency department with diffuse abdominal cramping and diarrhea. She states this has been going on for several weeks. She was placed on a Xifaxan by her courtesy booth cashier but states that the diarrhea has continued and the cramping has worsened since that time. She does report mild low-grade fever yesterday of 99 but states she has had some chills. She does report a history of C. difficile infection in the past. She states she has been on some cefdinir recently for a urinary tract infection. She reports fatigue and dry mouth. She presents to the emergency department for further evaluation and treatment. MD elicited complaint: abdominal pain Pertinent past history: past UTI and other (Chronic diarrhea) Associated Symptoms: Reports diarrhea, fever(s) ( low grade per patient) and nausea; Denies dysuria and vomiting Related Data Patient : No (hysterectomy) Home Medications ?Medication ?Instructions ?Recorded ?Confirmed acetaminophen 500 mg tablet 1,000 mg PO Q6H PRN Pain 07/09/21 09/26/24 pantoprazole 40 mg tablet,delayed 40 mg PO BID 07/27/23 09/26/24 release ondansetron HCl 4 mg tablet 4 mg PO Q8H 01/22/24 09/26/24 prednisolone acetate 1 % eye drp ophthalmic (eye) 05/10/24 09/26/24 drops,suspension dicyclomine 10 mg capsule 10 mg PO BID PRN 05/27/24 09/26/24 polyethylene glycol 3350 17 4 g PO DAILY 05/27/24 09/26/24 gram/dose oral powder (Miralax) sucralfate 1 gram tablet (Carafate) 1 g PO QID 05/27/24 09/26/24 famotidine 20 mg tablet mg PO 09/23/24 09/26/24 lubiprostone 24 mcg capsule mcg PO 09/23/24 09/26/24 Previous Rx's ?Medication ?Instructions ?Recorded nystatin 100,000 unit/gram topical 1 applic topical BID #30 grams 06/16/22 powder SOLE Supports #1 ea 01/01/24 fluticasone propionate 50 1 spray intranasal DAILY PRN nasal 05/10/24 mcg/actuation nasal congestion 30 days #16 grams spray,suspension (Flonase Allergy Relief) lamotrigine 200 mg tablet 200 mg PO DAILY@06 #30 tabs 08/05/24 trazodone 300 mg tablet 300 mg PO .q hs PRN sleep #30 tabs 08/05/24 vortioxetine 20 mg tablet 20 mg PO .q am #30 tabs 08/05/24 (Trintellix) Rollator Walker #1 ea 09/06/24 quetiapine 25 mg tablet 25 mg PO BID PRN agitation #60 tabs 09/26/24 cholecalciferol (vitamin D3) 1,250 1,250 mcg PO .once a week 90 days 09/27/24 mcg (50,000 unit) capsule #12 caps quetiapine 50 mg tablet 50 mg PO BID #60 tabs 09/27/24 albuterol sulfate 90 mcg/actuation See Rx Instructions .Route 10/03/24 aerosol inhaler .COMPLEX #9 grams methocarbamol 750 mg tablet 1,500 mg (2 x 750 mg) PO TID PRN 10/05/24 muscle pain #30 tabs promethazine 25 mg tablet 12.5 - 25 mg (0.5 - 1 x 25 mg) PO 10/05/24 Q6H PRN nausea and vomiting #10 tabs Allergies Allergy/AdvReac Type Severity Reaction Status Date / Time haloperidol (From Haldol) Allergy Severe unknown Verified 09/26/24 08:07 Penicillins Allergy Severe ALGY-Anaphy Verified 09/26/24 08:07 laxis sulfamethoxazole (From Allergy Severe ALGY-Hives Verified 09/26/24 08:07 Bactrim) Tetracyclines Allergy Severe ALGY-Hives Verified 09/26/24 08:07 gabapentin (From Neurontin) Allergy Intermediate ADR-Halluci Verified 09/26/24 08:07 nating ketorolac (From Toradol) Allergy Intermediate ALGY-Rash Verified 09/26/24 08:07 lithium Allergy Intermediate ADR-Halluci Verified 09/26/24 08:07 nating fentanyl Allergy Mild rash Verified 09/26/24 08:07 adhesive tape Allergy Rash Verified 09/26/24 08:07 codeine Allergy GI Verified 09/26/24 08:07 duloxetine (From Cymbalta) Allergy ALGY-Rash Verified 09/26/24 08:07 fluoxetine Allergy ADR-Migrain Verified 09/26/24 08:07 e metoclopramide (From Reglan) Allergy ADR-Shakine Verified 09/26/24 08:07 ss nitroglycerin Allergy ADV-Weaknes Verified 09/26/24 08:07 s tramadol Allergy Unknown Verified 09/26/24 08:07 trimethoprim (From Bactrim) Allergy ALGY-Hives Verified 09/26/24 08:07 ziprasidone (From Geodon) AdvReac Severe ADR-Halluci Verified 09/26/24 08:07 nating risperidone (From Risperdal) AdvReac ADR-Halluci Verified 09/26/24 08:07 nating Review of Systems Const: Reports: fever(s) ( low grade per patient) Eyes: Denies: change in vision ENMT: Reports: other (Dry mouth) Card: Denies: chest pain or palpitations Resp: Denies: dyspnea, productive cough, non-productive cough or wheezing GI: Reports: abdominal pain (Diffuse cramping), nausea and diarrhea; Denies: vomiting : Denies: difficulty voiding or dysuria Musc: Denies: neck pain or back pain Skin/Breast: Denies: rash, pruritus or erythema Neuro: Denies: headache(s) or numbness in extremities Psych: Denies: anxiety or depression Endo: Denies: polyuria or polydipsia Wilbur/Lymph: Denies: petechiae All/Imm: Denies: urticaria or acute wheezing PFSH ED PFSH: Medical History Chronic gastritis without bleeding Insomnia Tobacco use disorder Opioid dependence, uncomplicated Cannabis dependence, uncomplicated Psychiatric care Tardive dyskinesia Esophageal stricture Cystitis cystica Restrictive lung disease Chronic back pain greater than 3 months duration Borderline personality disorder Schizoaffective disorder, bipolar type Urgency incontinence Neurogenic bladder Dysphagia COPD (chronic obstructive pulmonary disease) GERD without esophagitis Foreign body in bladder Bladder stone Chronic anxiety Surgical History H/O bladder repair surgery MESH REPAIR H/O esophagogastroduodenoscopy (09/21/20) H/O colonoscopy with polypectomy History of foot surgery sx in 2009. Screws placed by Dr. Don. S/P bronchoscopy with biopsy History of ureter stent History of breast biopsy Hx of cholecystectomy H/O: hysterectomy History of appendectomy Family History Mother No problems noted. Father No problems noted. Other Asthma Cancer Diabetes Heart disease Social History Smoking and tobacco/nicotine status: current every day tobacco/nicotine user cigarettes Packs smoked per day: 1 Years cigarettes smoked: 20 [ Other cigarette details: Hx of 1 PPD x 20 Years, started at age 27] Quit status (tobacco/nicotine): considering quitting Second hand smoke exposure: Yes Alcohol intake: never Substance/Drug Use: former Lives independently: Yes Household members: spouse Marital status: Number of children: 3 Current occupational status: disabled Do you think of yourself as: Straight/Heterosexual Current gender identity: Female Physical Exam Const: COMMON NORMALS: no acute distress and alert GENERAL APPEARANCE: cooperative HENMT: COMMON NORMALS: normocephalic, atraumatic, TM's normal bilaterally and Normal external nose present HEAD & SCALP: normocephalic and atraumatic NOSE: Normal external nose present TYMPANIC MEMBRANE: TM's normal bilaterally MOUTH: Abnormal oral and palatal mucosa present other (dry); no drooling and no muffled voice Eye: COMMON NORMALS: conjunctivae normal CONJUNCTIVA: Yes conjunctivae normal Neck/C-Spine: COMMON NORMALS: full ROM Resp: COMMON NORMALS: normal respiratory effort and clear to auscultation bilaterally EFFORT & INSPECTION: Yes able to speak in complete sentences AUSCULTATION: clear to auscultation bilaterally, no crackles, no rales, no rhonchi and no wheezes Cardio: COMMON NORMALS: regular rate and regular rhythm RATE: regular rate RHYTHM: regular rhythm GI: COMMON NORMALS: Soft to palpation INSPECTION: No abdominal distension PALPATION: Yes Soft to palpation, Yes Tenderness to palpation present (GI) Details: other (Diffuse abdominal tenderness), No Abdominal wall crepitus present and No Rebound tenderness present : COMMON NORMALS: Yes no CVA tenderness BLADDER/KIDNEY EXAM: Yes no CVA tenderness Back/Pelvis: COMMON NORMALS: no CVA tenderness and no thoracic nor lumbar tenderness Extremity: COMMON NORMALS: normal to inspection, full ROM, no calf tenderness and no pedal edema Neuro: SENSORIUM/ORIENTATION: Yes alert Psych: COMMON NORMALS: mental status grossly normal and speech normal ATTITUDE: Yes calm SPEECH: Yes normal speech Skin: COMMON NORMALS: no rashes or lesions noted and no wounds GENERAL SKIN EXAM: no rashes or lesions noted Course ED course: I discussed case with Dr. Martinez who agrees with the assessment and plan. Thankfully, the patient CT scan of her abdomen and pelvis was negative for any acute findings. Patient states she still has some nausea and abdominal cramping. He felt that Norflex and Phenergan would be appropriate. Reevaluation(s): Reevaluation #1: Patient reports she is still having some nausea and the cramping in her abdomen has not improved. We will do Phenergan for the nausea and Norflex to help with the cramping. She states she is staying in the hospital with a friend and is not driving this evening. The patient was agreeable. Time: 19:42 Vital Signs: Vital signs: Vital Signs Temperature 97.8 F 10/05/24 17:20 Pulse Rate 65 10/05/24 18:49 Respiratory Rate 16 10/05/24 18:49 Blood Pressure 126/57 10/05/24 18:49 Pulse Oximetry 97 10/05/24 18:49 Oxygen Delivery Me thod Room Air 10/05/24 17:20 MDM - Abdominal Pain Medical Decision Making Patient is a 58-year-old female that presented to the emergency department with diarrhea and abdominal cramping. She states this has continued and gotten a little bit worse since she was started on a new medication by her courtesy booth cashier to help with IBS-D. She states she has had C. difficile in the past been most recently treated with an antibiotic for urinary tract infection. She tested negative today for C. difficile. CT scan of the abdomen and pelvis was unremarkable for any acute findings. The patient continues to have cramping in her abdomen. We will give her some Norflex here as well as some Phenergan to help with the nausea. The patient has not had any vomiting. I recommended that she follow-up with her doctor next week for recheck, continue to drink plenty of clear fluids and return to the emergency department with any worsening symptoms. The patient expressed understanding. Differential Diagnosis Likely abdominal pain, diverticulitis and gastroenteritis Medical Records I reviewed the patient's medical records. Lab Data I reviewed the patient's lab results. 10/05/24 17:55 10/05/24 17:55 Labs/Radiology: Radiology Impressions Abdomen/Pelvis CT 10/05/24 17:40 IMPRESSION: 1. No acute abnormality in the abdomen and pelvis. 2. Chronic findings as detailed in the body of the report. Laboratory Results WBC 7.50 10^3/uL (3.29-11.43) 10/05/24 17:55 RBC 4.04 10^6/uL (3.85-5.65) 10/05/24 17:55 Hgb 13.10 g/dL (11.27-16.99) 10/05/24 17:55 Hct 38.6 % (36-47) 10/05/24 17:55 MCV 95.5 fl (85-98) 10/05/24 17:55 MCH 32.4 pg (27-33) 10/05/24 17:55 MCHC 33.9 g/dL (30-55) 10/05/24 17:55 RDW 13.5 % (12.1-15.1) 10/05/24 17:55 Plt Count 234 10^3/cmm (157-399) 10/05/24 17:55 MPV 9.6 fL (7.4-10.4) 10/05/24 17:55 Neut % (Auto) 43.4 % 10/05/24 17:55 Lymph % (Auto) 39.2 % 10/05/24 17:55 Bradley % (Auto) 11.9 % 10/05/24 17:55 Eos % (Auto) 3.9 % 10/05/24 17:55 Baso % (Auto) 1.3 % 10/05/24 17:55 Neut # (Auto) 3.26 10^3/uL (1.8-7.7) 10/05/24 17:55 Lymph # (Auto) 2.9 10^3/uL (0.8-4.8) 10/05/24 17:55 Bradley # (Auto) 0.9 10^3/uL (0.2-0.9) 10/05/24 17:55 Eos # (Auto) 0.3 10^3/uL (0.0-0.8) 10/05/24 17:55 Baso # (Auto) 0.1 10^3/uL (0.0-0.1) 10/05/24 17:55 Nucleated RBC % (auto) 0 % 10/05/24 17:55 Nucleated RBCs # 0.0 /100WBC 10/05/24 17:55 Sodium 140 mmol/L (136-145) 10/05/24 17:55 Potassium 4.3 mmol/L (3.5-5.1) 10/05/24 17:55 Chloride 105 mmol/L (98-107) 10/05/24 17:55 Carbon Dioxide 21 mmol/L (22-29) L 10/05/24 17:55 Anion Gap 18.3 (5-19) 10/05/24 17:55 BUN 14 mg/dL (6-20) 10/05/24 17:55 Creatinine 0.9 mg/dL (0.5-0.9) 10/05/24 17:55 GFR Calculation 64.8 mL/min (90-130) L 10/05/24 17:55 Glucose 86 mg/dL (65-115) 10/05/24 17:55 Calculated Osmolality 290 mOsm/kg (285-295) 10/05/24 17:55 Calcium 9.4 mg/dL (8.5-10.5) 10/05/24 17:55 Total Bilirubin 0.2 mg/dL (0.15-1.2) 10/05/24 17:55 AST 14 U/L (0-32) 10/05/24 17:55 ALT 11 U/L (0-33) 10/05/24 17:55 Alkaline Phosphatase 114 U/L (35-105) H 10/05/24 17:55 Total Protein 7.1 g/dL (6.6-8.7) 10/05/24 17:55 Albumin 4.1 g/dL (3.5-5.2) 10/05/24 17:55 Globulin 3.0 g/dL (1.3-4.6) 10/05/24 17:55 Lipase 20 U/L (13-60) 10/05/24 17:55 Urine Color Yellow (Yellow) 10/05/24 17:55 Urine Appearance Clear (CLEAR) 10/05/24 17:55 Urine pH 6.0 (5-7) 10/05/24 17:55 Ur Specific [place] 1.009 (1.005-1.030) 10/05/24 17:55 Urine Protein Negative (Negative) 10/05/24 17:55 Urine Glucose (UA) Negative (Normal) 10/05/24 17:55 Urine Ketones Negative (Negative) 10/05/24 17:55 Urine Blood 1+ (Negative) A 10/05/24 17:55 Urine Nitrate Negative (Negative) 10/05/24 17:55 Urine Bilirubin Negative (Negative) 10/05/24 17:55 Urine Urobilinogen 0.2 mg/dL (Negative) 10/05/24 17:55 Ur Leukocyte Esterase Trace (Negative) A 10/05/24 17:55 Urine RBC 0-2 /hpf (0-2) 10/05/24 17:55 Urine WBC 0-5 /hpf (0-5) 10/05/24 17:55 Ur Squamous Epith Cells 11-20 /hpf (0-5) H 10/05/24 17:55 Amorphous Sediment Not Reportable 10/05/24 17:55 Urine Bacteria None seen /hpf (NONE) 10/05/24 17:55 Hyaline Casts 0-4 /lpf H 10/05/24 17:55 C. difficile (PCR) Negative (Negative) 10/05/24 17:45 All radiology interpretation(s) finalized by discharge Critical Care Time Critical Care Time: Critical Care Time: No Discharge Plan Discharge Patient Disposition: Home Clinical Impression: Abdominal cramping, Diarrhea Condition: Stable Prescriptions: New methocarbamol 750 mg tablet 1,500 mg PO TID PRN (Reason: muscle pain) Qty: 30 0RF Rx Instructions: No alcohol use or driving with this medication. promethazine 25 mg tablet 12.5 - 25 mg PO Q6H PRN (Reason: nausea and vomiting) Qty: 10 0RF Rx Instructions: 4 doses during day; last dose no later than 4 hr before bedtime Discontinued promethazine 25 mg suppository 25 mg TN Q6H PRN cefdinir 300 mg capsule 300 mg PO BID 7 Days Qty: 14 0RF No Action pantoprazole 40 mg tablet,delayed release (DR/EC) 40 mg PO BID (DME) SOLE Supports See Rx Instructions .Route .MEDSUPPLY Qty: 1 0RF Rx Instructions: As directed PRE-Auth prednisolone acetate 1 % drops,suspension ophthalmic (eye) fluticasone propionate [Flonase Allergy Relief] 50 mcg/actuation spray,suspension 1 spray intranasal DAILY PRN (Reason: nasal congestion) 30 Days Qty: 16 2RF Rx Instructions: administer into each nostril dicyclomine 10 mg capsule 10 mg PO BID PRN lamotrigine 200 mg tablet 200 mg PO DAILY@06 Qty: 30 2RF Rx Instructions: Take one tablet by mouth every morning trazodone 300 mg tablet 300 mg PO .q hs PRN (Reason: sleep) Qty: 30 2RF Rx Instructions: Take one tablet daily at bedtime, if needed for sleep Trintellix 20 mg tablet 20 mg PO .q am Qty: 30 2RF Rx Instructions: Take one tablet once daily quetiapine 25 mg tablet 25 mg PO BID PRN (Reason: agitation) Qty: 60 2RF Rx Instructions: Take one tablet up to twice a day, if needed, for agitation quetiapine 50 mg tablet 50 mg PO BID Qty: 60 2RF Rx Instructions: Take one tablet by mouth every morning and night famotidine 20 mg tablet PO lubiprostone 24 mcg capsule PO ondansetron HCl 4 mg tablet 4 mg PO Q8H sucralfate [Carafate] 1 gram tablet 1 g PO QID polyethylene glycol 3350 [Miralax] 17 gram/dose powder 4 g PO DAILY nystatin 100,000 unit/gram powder 1 applic topical BID Qty: 30 0RF Rx Instructions: apply locally to B/L groin folds (DME) Rollator Walker See Rx Instructions .Route .MEDSUPPLY Qty: 1 0RF Rx Instructions: As directed HOME: Length of need 4 months cholecalciferol (vitamin D3) 1,250 mcg (50,000 unit) capsule 1,250 mcg PO .once a week 90 Days Qty: 12 0RF albuterol sulfate 90 mcg/actuation HFA aerosol inhaler See Rx Instructions .ROUTE .COMPLEX Qty: 9 0RF Dose Instruction: INHALE 2 PUFFS BY MOUTH EVERY 6 HOURS NEEDED FOR SHORTNESS OF BREATH OR WHEEZING Rx Instructions: INHALE 2 PUFFS BY MOUTH EVERY 6 HOURS NEEDED FOR SHORTNESS OF BREATH OR WHEEZING acetaminophen 500 mg Tablet 1,000 mg PO Q6H PRN (Reason: Pain) Discharge Orders: Discharge ED (Routine); Ordered 10/05/24 Ordered By: Delta Hutton Referrals: Dara Tavera FNP [Primary Care Provider] - Discharge Diet: Advance as tolerated Discharge Activity: Resume usual activity Patient Instructions: Opioid Safety, Pain Management, Abdominal Pain (ED), Chronic Diarrhea (ED) Activity Restrictions/Additional Instructions: Take medications as directed. Your medications were sent electronically to the [facility] pharmacy in [place]. You may continue to take your Tylenol as directed for pain. Rest, increase fluids. Follow-up with your doctor in 1 week for recheck. Follow-up with your courtesy booth cashier for further evaluation and treatment. Return to the emergency department with any worsening symptoms. Print Language: Telugu Coding Level of Care Code ED Tuber Machine Cutter for Shellie Guallpa
[2024-10-05 18:00] LABS: Basophils # 0.1 10^3/uL (0.0-0.1); Basophils % 1.3 %; Eosinophils # 0.3 10^3/uL (0.0-0.8); Eosinophils % 3.9 %; Hematocrit 38.6 % (36-47); Lymphocytes # 2.9 10^3/uL (0.8-4.8); Lymphocytes % 39.2 %; Mean Corpuscular HGB Conc 33.9 g/dL (30-55); Mean Corpuscular Hemoglobin 32.4 pg (27-33); Mean Corpuscular Volume 95.5 fl (85-98); Mean Platelet Volume 9.6 fL (7.4-10.4); Monocytes # 0.9 10^3/uL (0.2-0.9); Monocytes % 11.9 %; Neutrophils # 3.26 10^3/uL (1.8-7.7); Neutrophils % 43.4 %; Nucleated Red Blood Cells % 0 %; Platelet Count 234 10^3/cmm (157-399); Red Blood Count 4.04 10^6/uL (3.85-5.65); Red Cell Distribution Width 13.5 % (12.1-15.1)
[2024-10-05 18:03] LABS: Bilirubin Urine Negative (Negative); Blood Urine 1+ (Negative); Glucose Urine UA Negative (Normal); Ketones Urine Negative (Negative); Leukocyte Esterase Urine Trace (Negative); Nitrate Urine Negative (Negative); Protein Urine Negative (Negative); Specific Gravity, Urine 1.009 (1.005-1.030); Urine Appearance Clear (CLEAR); Urine Color Yellow (Yellow); Urobilinogen Urine 0.2 mg/dL (Negative)
[2024-10-05 18:08] LABS: Add Urine Microscopic? YES; Bacteria Urine None Seen /hpf; Hyaline Casts Urine 0-4 /lpf; RBC Urine 0-2 /hpf (0-2); WBC Urine 0-5 /hpf (0-5)
[2024-10-05] MEDS: sodium chloride 0.9% 1,000 ML 999 ML IV (18:14)
[2024-10-05] MEDS: ondansetron 2 mg/ML SDV 2 mL 4 MG IVP (18:15)
[2024-10-05 18:16] LABS: Alanine Aminotransferase 11 U/L (0-33); Albumin Level 4.1 g/dL (3.5-5.2); Alkaline Phosphatase 114 U/L (35-105); Anion Gap 18.3 (5-19); Aspartate Amino Transferase 14 U/L (0-32); Blood Urea Nitrogen 14 mg/dL (6-20); Calcium 9.4 mg/dL (8.5-10.5); Carbon Dioxide 21 mmol/L (22-29); Chloride 105 mmol/L (98-107); Creatinine Clr Calc Pharmacy 65.5082; Glomerular Filtration Rate 64.8 mL/min (90-130); Glucose 86 mg/dL (65-115); Lipase 20 U/L (13-60); Osmolality Calculated 290 mOsm/kg (285-295); Potassium 4.3 mmol/L (3.5-5.1); Sodium 140 mmol/L (136-145); Total Bilirubin 0.2 mg/dL (0.15-1.2); Total Protein 7.1 g/dL (6.6-8.7)
[2024-10-05] MEDS: iohexol 350 mg/mL 500 mL Btl (per mL) IV (18:41)
[2024-10-05 18:45] LABS: C.Diff PCR (Lab) NEGATIVE (Negative)
[2024-10-05] MEDS: acetaminophen 1,000 MG/100 ML PIGGYBACK 400 MG IV (18:46)
[2024-10-05 18:49] VITALS: BP 126/57; PULSE 65; RESP 16; O2SAT 97
[2024-10-05 20:00] VITALS: BP 114/62; PULSE 89; RESP 16; O2SAT 98
[2024-10-05] MEDS: orphenadrine 30 mg/mL Inj 2 mL 60 MG IM (20:38)
[2024-10-05] MEDS: promethazine 25 mg Tablet PO (20:41)
[2024-10-05 20:57] VITALS: BP 114/52; PULSE 81; RESP 16; O2SAT 97
== END 2024-10-05 20:59 | disposition home or self-care (01) ==
PROVIDERS: Emergency Provider Physician Assistant; PCP Registered Nurse
DX: R10.9 Unspecified abdominal pain (principal); R19.7 Diarrhea, unspecified; F17.210 Nicotine dependence, cigarettes, uncomplicated; J44.9 Chronic obstructive pulmonary disease, unspecified
CPT/HCPCS: 12345; 74177; 80053; 81001; 83690; 85025; 87493; 96372; 96374; 96375; 99285; J0131; J2360; J2405; J7030; Q0169

== ENCOUNTER 2024-10-20 21:11 | Emergency (ER) | payer MEDICARE, MEDICAID, SELFPAY ==
[2024-10-20 21:12] VITALS: BP 93/57; PULSE 82; RESP 17; TEMP 36.6; O2SAT 97; BMI 29.4
--- NOTE | 2024-10-20 23:00 | W.ED.HA ---
HPI - Headache General: Chief Complaint: Headache Stated Complaint: Left Side of Body Pain Time Seen by Provider: 10/20/24 21:47 History of Present Illness: 58-year-old female well-known to the emergency department service. She presents with right-sided headache that started around 730. It is now resolved. She also complains of left-sided pain from her neck down through her belly. This has remained. She is nauseated. She has not thrown up or had diarrhea. No fever. She says she has not had a headache in 2 years. No blurred vision. No speech or language problems. No trouble walking. No significant weakness numbness or tingling. Related Data Home Medications ?Medication ?Instructions ?Recorded ?Confirmed acetaminophen 500 mg tablet 1,000 mg PO Q6H PRN Pain 07/09/21 09/26/24 pantoprazole 40 mg tablet,delayed 40 mg PO BID 07/27/23 09/26/24 release ondansetron HCl 4 mg tablet 4 mg PO Q8H 01/22/24 09/26/24 prednisolone acetate 1 % eye drp ophthalmic (eye) 05/10/24 09/26/24 drops,suspension dicyclomine 10 mg capsule 10 mg PO BID PRN 05/27/24 09/26/24 polyethylene glycol 3350 17 4 g PO DAILY 05/27/24 09/26/24 gram/dose oral powder (Miralax) sucralfate 1 gram tablet (Carafate) 1 g PO QID 05/27/24 09/26/24 famotidine 20 mg tablet mg PO 09/23/24 09/26/24 lubiprostone 24 mcg capsule mcg PO 09/23/24 09/26/24 Previous Rx's ?Medication ?Instructions ?Recorded nystatin 100,000 unit/gram topical 1 applic topical BID #30 grams 06/16/22 powder SOLE Supports #1 ea 01/01/24 fluticasone propionate 50 1 spray intranasal DAILY PRN nasal 05/10/24 mcg/actuation nasal congestion 30 days #16 grams spray,suspension (Flonase Allergy Relief) lamotrigine 200 mg tablet 200 mg PO DAILY@06 #30 tabs 08/05/24 trazodone 300 mg tablet 300 mg PO .q hs PRN sleep #30 tabs 08/05/24 vortioxetine 20 mg tablet 20 mg PO .q am #30 tabs 08/05/24 (Trintellix) Rollator Walker #1 ea 09/06/24 quetiapine 25 mg tablet 25 mg PO BID PRN agitation #60 tabs 09/26/24 cholecalciferol (vitamin D3) 1,250 1,250 mcg PO .once a week 90 days 09/27/24 mcg (50,000 unit) capsule #12 caps quetiapine 50 mg tablet 50 mg PO BID #60 tabs 09/27/24 albuterol sulfate 90 mcg/actuation See Rx Instructions .Route 10/03/24 aerosol inhaler .COMPLEX #9 grams methocarbamol 750 mg tablet 1,500 mg (2 x 750 mg) PO TID PRN 10/05/24 muscle pain #30 tabs promethazine 25 mg tablet 12.5 - 25 mg (0.5 - 1 x 25 mg) PO 10/05/24 Q6H PRN nausea and vomiting #10 tabs cephalexin 500 mg capsule 500 mg PO TID 7 days #21 caps 10/21/24 Allergies Allergy/AdvReac Type Severity Reaction Status Date / Time haloperidol (From Haldol) Allergy Severe unknown Verified 09/26/24 08:07 Penicillins Allergy Severe ALGY-Anaphy Verified 09/26/24 08:07 laxis sulfamethoxazole (From Allergy Severe ALGY-Hives Verified 09/26/24 08:07 Bactrim) Tetracyclines Allergy Severe ALGY-Hives Verified 09/26/24 08:07 gabapentin (From Neurontin) Allergy Intermediate ADR-Halluci Verified 09/26/24 08:07 nating ketorolac (From Toradol) Allergy Intermediate ALGY-Rash Verified 09/26/24 08:07 lithium Allergy Intermediate ADR-Halluci Verified 09/26/24 08:07 nating fentanyl Allergy Mild rash Verified 09/26/24 08:07 adhesive tape Allergy Rash Verified 09/26/24 08:07 codeine Allergy GI Verified 09/26/24 08:07 duloxetine (From Cymbalta) Allergy ALGY-Rash Verified 09/26/24 08:07 fluoxetine Allergy ADR-Migrain Verified 09/26/24 08:07 e metoclopramide (From Reglan) Allergy ADR-Shakine Verified 09/26/24 08:07 ss nitroglycerin Allergy ADV-Weaknes Verified 09/26/24 08:07 s tramadol Allergy Unknown Verified 09/26/24 08:07 trimethoprim (From Bactrim) Allergy ALGY-Hives Verified 09/26/24 08:07 ziprasidone (From Geodon) AdvReac Severe ADR-Halluci Verified 09/26/24 08:07 nating risperidone (From Risperdal) AdvReac ADR-Halluci Verified 09/26/24 08:07 nating PFSH ED PFSH: Medical History Chronic gastritis without bleeding Insomnia Tobacco use disorder Opioid dependence, uncomplicated Cannabis dependence, uncomplicated Psychiatric care Tardive dyskinesia Esophageal stricture Cystitis cystica Restrictive lung disease Chronic back pain greater than 3 months duration Borderline personality disorder Schizoaffective disorder, bipolar type Urgency incontinence Neurogenic bladder Dysphagia COPD (chronic obstructive pulmonary disease) GERD without esophagitis Foreign body in bladder Bladder stone Chronic anxiety Surgical History H/O bladder repair surgery MESH REPAIR H/O esophagogastroduodenoscopy (09/21/20) H/O colonoscopy with polypectomy History of foot surgery sx in 2009. Screws placed by Dr. Don. S/P bronchoscopy with biopsy History of ureter stent History of breast biopsy Hx of cholecystectomy H/O: hysterectomy History of appendectomy Family History Mother No problems noted. Father No problems noted. Other Asthma Cancer Diabetes Heart disease Social History Smoking and tobacco/nicotine status: current every day tobacco/nicotine user cigarettes Packs smoked per day: 1 Years cigarettes smoked: 20 [ Other cigarette details: Hx of 1 PPD x 20 Years, started at age 27] Quit status (tobacco/nicotine): considering quitting Second hand smoke exposure: Yes Alcohol intake: never Substance/Drug Use: former Lives independently: Yes Household members: spouse Marital status: Number of children: 3 Current occupational status: disabled Do you think of yourself as: Straight/Heterosexual Current gender identity: Female Physical Exam Const: COMMON NORMALS: no acute distress and alert GENERAL APPEARANCE: cooperative; not ill appearing and not frail appearing HENMT: COMMON NORMALS: normocephalic, atraumatic and Normal external nose present HEAD & SCALP: normocephalic and atraumatic FACE & SINUS: normal facial exam and face symmetric NOSE: Normal external nose present Eye: COMMON NORMALS: Equal, round and reactive pupils present and EOMs intact bilaterally PUPIL: Yes Equal, round and reactive pupils present Neck/C-Spine: GENERAL: Yes trachea midline Chest: CHEST: Yes Symmetrical chest wall rise Resp: COMMON NORMALS: normal respiratory effort, No retractions, No use of accessory muscles and clear to auscultation bilaterally AUSCULTATION: clear to auscultation bilaterally Cardio: COMMON NORMALS: regular rate and regular rhythm RATE: regular rate RHYTHM: regular rhythm GI: COMMON NORMALS: Normal to inspection, nondistended, normoactive bowel sounds present Extremity: COMMON NORMALS: no pedal edema Neuro: JEANINE COMA SCALE: document GCS findings Jeanine coma scale eye opening: Spontaneous Jeanine coma scale verbal response: Orientated Walsh coma scale motor response: Obey commands Walsh coma scale total score: 15 COMMON NORMALS: CN's II-XII intact bilaterally and no focal motor deficits SENSORIUM/ORIENTATION: Yes alert COORDINATION/BALANCE: [id number] test normal and [id number] test normal SPEECH: speech normal SENSORY EXAM: Yes extremities (intact) COORDINATION: [id number] test normal and [id number] test normal Psych: COMMON NORMALS: speech normal SPEECH: Yes normal speech Skin: COMMON NORMALS: no rashes or lesions noted GENERAL SKIN EXAM: no rashes or lesions noted Course Vital Signs: Vital signs: Vital Signs Temperature 97.8 F 10/20/24 21:12 Pulse Rate 63 10/21/24 00:06 Respiratory Rate 16 10/21/24 00:06 Blood Pressure 107/73 10/21/24 00:06 Pulse Oximetry 94 10/21/24 00:06 Oxygen Delivery Me thod Room Air 10/20/24 21:12 MDM - Headache Medical Decision Making Head CT, urinalysis. No need to draw blood in this patient. She is given Dilaudid and promethazine with improvement. CT is negative for any acute findings. She does have some paranasal sinus disease. She does have a urinary tract infection which will be treated with antibiotics. To return for worsening symptoms. Lab Data Radiology Impressions Head CT 10/20/24 23:01 IMPRESSION: 1. No acute intracranial findings. 2. Paranasal sinus disease. Laboratory Results Urine Color Yellow (Yellow) 10/20/24 23:19 Urine Appearance Clear (CLEAR) 10/20/24 23:19 Urine pH 6.0 (5-7) 10/20/24 23:19 Ur Specific [place] 1.013 (1.005-1.030) 10/20/24 23:19 Urine Protein Negative (Negative) 10/20/24 23:19 Urine Glucose (UA) Negative (Normal) 10/20/24 23:19 Urine Ketones Negative (Negative) 10/20/24 23:19 Urine Blood Negative (Negative) 10/20/24 23:19 Urine Nitrate Negative (Negative) 10/20/24 23:19 Urine Bilirubin Negative (Negative) 10/20/24 23:19 Urine Urobilinogen 0.2 mg/dL (Negative) 10/20/24 23:19 Ur Leukocyte Esterase 1+ (Negative) A 10/20/24 23:19 Urine RBC 0-2 /hpf (0-2) 10/20/24 23:19 Urine WBC 11-20 /hpf (0-5) H 10/20/24 23:19 Ur Squamous Epith Cells 6-10 /hpf (0-5) 10/20/24 23:19 Amorphous Sediment Not Reportable 10/20/24 23:19 Urine Bacteria None seen /hpf (NONE) 10/20/24 23:19 Hyaline Casts 0-4 /lpf H 10/20/24 23:19 All radiology interpretation(s) finalized by discharge Discharge Plan Discharge Patient Disposition: Home Clinical Impression: Headache, Chronic nausea, UTI (urinary tract infection) Condition: Stable Prescriptions: New cephalexin 500 mg capsule 500 mg PO TID 7 Days Qty: 21 0RF No Action pantoprazole 40 mg tablet,delayed release (DR/EC) 40 mg PO BID (DME) SOLE Supports See Rx Instructions .Route .MEDSUPPLY Qty: 1 0RF Rx Instructions: As directed PRE-Auth prednisolone acetate 1 % drops,suspension ophthalmic (eye) fluticasone propionate [Flonase Allergy Relief] 50 mcg/actuation spray,suspension 1 spray intranasal DAILY PRN (Reason: nasal congestion) 30 Days Qty: 16 2RF Rx Instructions: administer into each nostril dicyclomine 10 mg capsule 10 mg PO BID PRN lamotrigine 200 mg tablet 200 mg PO DAILY@06 Qty: 30 2RF Rx Instructions: Take one tablet by mouth every morning trazodone 300 mg tablet 300 mg PO .q hs PRN (Reason: sleep) Qty: 30 2RF Rx Instructions: Take one tablet daily at bedtime, if needed for sleep Trintellix 20 mg tablet 20 mg PO .q am Qty: 30 2RF Rx Instructions: Take one tablet once daily quetiapine 25 mg tablet 25 mg PO BID PRN (Reason: agitation) Qty: 60 2RF Rx Instructions: Take one tablet up to twice a day, if needed, for agitation quetiapine 50 mg tablet 50 mg PO BID Qty: 60 2RF Rx Instructions: Take one tablet by mouth every morning and night famotidine 20 mg tablet PO lubiprostone 24 mcg capsule PO ondansetron HCl 4 mg tablet 4 mg PO Q8H sucralfate [Carafate] 1 gram tablet 1 g PO QID polyethylene glycol 3350 [Miralax] 17 gram/dose powder 4 g PO DAILY nystatin 100,000 unit/gram powder 1 applic topical BID Qty: 30 0RF Rx Instructions: apply locally to B/L groin folds (DME) Rollator Walker See Rx Instructions .Route .MEDSUPPLY Qty: 1 0RF Rx Instructions: As directed HOME: Length of need 4 months cholecalciferol (vitamin D3) 1,250 mcg (50,000 unit) capsule 1,250 mcg PO .once a week 90 Days Qty: 12 0RF albuterol sulfate 90 mcg/actuation HFA aerosol inhaler See Rx Instructions .ROUTE .COMPLEX Qty: 9 0RF Dose Instruction: INHALE 2 PUFFS BY MOUTH EVERY 6 HOURS NEEDED FOR SHORTNESS OF BREATH OR WHEEZING Rx Instructions: INHALE 2 PUFFS BY MOUTH EVERY 6 HOURS NEEDED FOR SHORTNESS OF BREATH OR WHEEZING acetaminophen 500 mg Tablet 1,000 mg PO Q6H PRN (Reason: Pain) methocarbamol 750 mg tablet 1,500 mg PO TID PRN (Reason: muscle pain) Qty: 30 0RF Rx Instructions: No alcohol use or driving with this medication. promethazine 25 mg tablet 12.5 - 25 mg PO Q6H PRN (Reason: nausea and vomiting) Qty: 10 0RF Rx Instructions: 4 doses during day; last dose no later than 4 hr before bedtime Discharge Orders: Discharge ED (Routine); Ordered 10/21/24 Ordered By: Chivo Deleon Referrals: Dara Tavera FNP [Primary Care Provider, [facility]] - 1-3 days Patient Instructions: Urinary Tract Infection in Women (ED), Acute Headache (ED), Abdominal Pain (ED), Opioid Safety, Pain Management Activity Restrictions/Additional Instructions: Follow-up with your doctor this week. Print Language: Croatian Coding Level of Care Code ED Miner for Shellie Guallpa
--- NOTE | 2024-10-20 23:01 | CTR_ITS ---
PROCEDURE INFORMATION: Exam: CT Head Without Contrast Exam date and time: 10/20/2024 11:23 PM Age: 58 years old Clinical indication: Pain; Headache; Additional info: Headache, vomiting TECHNIQUE: Imaging protocol: Computed tomography of the head without contrast. Radiation optimization: All CT scans at this facility use at least one of these dose optimization techniques: automated exposure control; mA and/or kV adjustment per patient size (includes targeted exams where dose is matched to clinical indication); or iterative reconstruction. COMPARISON: MR head wo con* [id number] 03/08/2023 8:00 AM RADIATION DOSE METRICS: Total DLP (mGy-cm): 1017.79 FINDINGS: Brain: Mild generalized cortical volume loss. No hemorrhage. Unremarkable white matter. No mass effect. Cerebral ventricles: No ventriculomegaly. Paranasal sinuses: Mucosal thickening throughout the ethmoid air cells and sphenoid sinuses. Incomplete pneumatization of the right frontal sinus. Mastoid air cells: Visualized mastoid air cells are well aerated. Bones: Unremarkable. No acute fracture. Soft tissues: Unremarkable. CT/CT head wo con* [id number] IMPRESSION: 1. No acute intracranial findings. 2. Paranasal sinus disease.
[2024-10-20] MEDS: HYDROmorphone 0.5 MG/0.5 ML INJ 2 MG IM (23:18)
[2024-10-20] MEDS: promethazine 25 mg/mL SDV 1 mL IM (23:18)
[2024-10-20 23:22] VITALS: BP 115/67; PULSE 61; RESP 16; O2SAT 97
[2024-10-20 23:31] LABS: Bacteria Urine None Seen /hpf; Hyaline Casts Urine 0-4 /lpf; RBC Urine 0-2 /hpf (0-2)
[2024-10-20 23:34] LABS: Add Urine Microscopic? YES; Bilirubin Urine Negative (Negative); Blood Urine Negative (Negative); Glucose Urine UA Negative (Normal); Ketones Urine Negative (Negative); Leukocyte Esterase Urine 1+ (Negative); Nitrate Urine Negative (Negative); Protein Urine Negative (Negative); Specific Gravity, Urine 1.013 (1.005-1.030); Urine Color Yellow (Yellow); Urobilinogen Urine 0.2 mg/dL (Negative)
[2024-10-20 23:39] VITALS: BP 105/62; PULSE 65; RESP 16; O2SAT 95
[2024-10-20 23:58] LABS: Urine Appearance Clear (CLEAR)
[2024-10-20 23:59] LABS: Add Urine Culture? Yes
[2024-10-21 00:06] VITALS: BP 107/73; PULSE 63; RESP 16; O2SAT 94
[2024-10-21] MEDS: cephALEXin 500 mg Capsule PO (00:09)
== END 2024-10-21 00:13 | disposition home or self-care (01) ==
PROVIDERS: Emergency Provider Emergency Medicine; PCP Registered Nurse
DX: R51.9 Headache, unspecified (principal); R11.0 Nausea; N39.0 Urinary tract infection, site not specified; F17.210 Nicotine dependence, cigarettes, uncomplicated; J44.9 Chronic obstructive pulmonary disease, unspecified
CPT/HCPCS: 70450; 81001; 87086; 96372; 99284; J1171; J2550; J9999

== ENCOUNTER 2024-10-27 22:48 | Emergency (ER) | payer MEDICARE, MEDICAID, SELFPAY ==
[2024-10-27 22:58] VITALS: BP 91/60; PULSE 78; RESP 16; TEMP 36.6; O2SAT 95; BMI 29.2
--- NOTE | 2024-10-27 23:01 | ECG_ITS ---
nCrypted Cloud [employer]bler Test Date: 2024-10-27 Pat Name: Latesha Wilhelm Department: Room: Gender: Female [employer] Sh[employer]er: : 1965 Requested By: Chivo Reynaga Order Number: [id number] Alice MD: Kenan Sidhu M.D. Measurements Intervals [place] Rate: 79 P: 69 TX: 143 QRS: 61 QRSD: 92 T: 64 QT: 377 QTc: 432 Interpretive Statements SINUS RHYTHM POSSIBLE RIGHT ATRIAL ENLARGEMENT [0.25mV P-WAVE] POSSIBLE LEFT ATRIAL ENLARGEMENT [-0.1mV P-WAVE IN V1/V2] INDETERMINATE AXIS INCOMPLETE RIGHT BUNDLE BRANCH BLOCK [90+ ms QRS DURATION, TERMINAL R IN V1/V2, 40+ ms S IN I/aVL/V4/V5/V6] Compared to ECG 06/26/2024 00:18:16 Indeterminate axis now present Incomplete right bundle-branch block now present Sinus bradycardia no longer present Sinus arrhythmia no longer present Electronically Signed On 10-28-2024 15:06:45 CDT by Kenan Sidhu M.D. [email or web address]
[2024-10-28 01:55] LABS: Basophils # 0.1 10^3/uL (0.0-0.1); Basophils % 0.7 %; Eosinophils # 0.2 10^3/uL (0.0-0.8); Eosinophils % 1.4 %; Hematocrit 41.7 % (36-47); Lymphocytes # 3.1 10^3/uL (0.8-4.8); Lymphocytes % 17.6 %; Mean Corpuscular HGB Conc 32.9 g/dL (30-55); Mean Corpuscular Hemoglobin 32.5 pg (27-33); Mean Platelet Volume 9.8 fL (7.4-10.4); Monocytes % 5.4 %; Neutrophils # 13.06 10^3/uL (1.8-7.7); Neutrophils % 74.5 %; Nucleated Red Blood Cells % 0 %; Platelet Count 165 10^3/cmm (157-399); Red Blood Count 4.21 10^6/uL (3.85-5.65); Red Cell Distribution Width 14.2 % (12.1-15.1); White Blood Count 17.52 10^3/uL (3.29-11.43)
--- NOTE | 2024-10-28 02:00 | XRR_ITS ---
PROCEDURE INFORMATION: Exam: XR Chest Exam date and time: 10/28/2024 2:04 AM Age: 58 years old Clinical indication: Chest pressure; Prior surgery; Surgery date: 6+ months; Surgery type: Gb; C/O chest pain; Additional info: Cp TECHNIQUE: Imaging protocol: Radiologic exam of the chest. Views: 1 view. COMPARISON: CR XR chest 1V portable [id number] 07/09/2024 9:40 PM FINDINGS: Lungs: Unremarkable. No consolidation. Pleural spaces: Unremarkable. No pleural effusion. No pneumothorax. Heart/Mediastinum: Unremarkable. No cardiomegaly. Bones/joints: Unremarkable. XR/XR chest 1V portable [id number] IMPRESSION: No acute findings.
[2024-10-28 02:10] VITALS: BP 133/70; PULSE 63; O2SAT 97
[2024-10-28 02:18] LABS: Alanine Aminotransferase 12 U/L (0-33); Albumin Level 4.1 g/dL (3.5-5.2); Alkaline Phosphatase 115 U/L (35-105); Anion Gap 19.4 (5-19); Aspartate Amino Transferase 22 U/L (0-32); Blood Urea Nitrogen 14 mg/dL (6-20); Calcium 10.4 mg/dL (8.5-10.5); Carbon Dioxide 19 mmol/L (22-29); Chloride 101 mmol/L (98-107); Creatinine Clr Calc Pharmacy 65.1084; Globulin 3.2 g/dL (1.3-4.6); Glomerular Filtration Rate 64.8 mL/min (90-130); Glucose 104 mg/dL (65-115); Osmolality Calculated 281 mOsm/kg (285-295); Potassium 4.4 mmol/L (3.5-5.1); Sodium 135 mmol/L (136-145); Total Bilirubin 0.3 mg/dL (0.15-1.2); Total Protein 7.3 g/dL (6.6-8.7)
[2024-10-28 02:19] LABS: Troponin(5th) Baseline < 6 ng/L (0-10)
[2024-10-28 02:22] LABS: Bilirubin Urine Negative (Negative); Blood Urine Negative (Negative); Glucose Urine UA Negative (Normal); Ketones Urine Negative (Negative); Leukocyte Esterase Urine 1+ (Negative); Nitrate Urine Negative (Negative); Protein Urine Negative (Negative); Specific Gravity, Urine 1.012 (1.005-1.030); Urine Appearance Clear (CLEAR); Urine Color Yellow (Yellow); Urobilinogen Urine 0.2 mg/dL (Negative); pH Urine 6.5 (5-7)
[2024-10-28 02:27] LABS: Add Urine Microscopic? YES; Bacteria Urine Trace /hpf; Hyaline Casts Urine 9.07 /lpf; RBC Urine 0-2 /hpf (0-2)
[2024-10-28 02:30] VITALS: BP 136/69; PULSE 64; O2SAT 96
--- NOTE | 2024-10-28 02:35 | W.ED.CHESTPA ---
HPI - Chest Pain General: Chief Complaint: Chest Pain Stated Complaint: Chest Pain Time Seen by Provider: 10/28/24 02:10 History of Present Illness: 58-year-old female well-known to the emergency department. She states that she had a headache earlier in the day, began to have chest discomfort. She points to the epigastrium and bottom part of her chest. It radiates into her back. She was nauseated. She believes she threw up 4-5 times at home. She took Zofran and Compazine without relief. She was given Zofran in the ambulance, with some relief. She still having significant epigastric pain Related Data Home Medications ?Medication ?Instructions ?Recorded ?Confirmed acetaminophen 500 mg tablet 1,000 mg PO Q6H PRN Pain 07/09/21 10/25/24 pantoprazole 40 mg tablet,delayed 40 mg PO BID 07/27/23 10/25/24 release ondansetron HCl 4 mg tablet 4 mg PO Q8H 01/22/24 10/25/24 prednisolone acetate 1 % eye drp ophthalmic (eye) 05/10/24 10/25/24 drops,suspension dicyclomine 10 mg capsule 10 mg PO BID PRN 05/27/24 10/25/24 polyethylene glycol 3350 17 4 g PO DAILY 05/27/24 10/25/24 gram/dose oral powder (Miralax) sucralfate 1 gram tablet (Carafate) 1 g PO QID 05/27/24 10/25/24 famotidine 20 mg tablet mg PO 09/23/24 10/25/24 lubiprostone 24 mcg capsule mcg PO 09/23/24 10/25/24 Previous Rx's ?Medication ?Instructions ?Recorded nystatin 100,000 unit/gram topical 1 applic topical BID #30 grams 06/16/22 powder SOLE Supports #1 ea 01/01/24 fluticasone propionate 50 1 spray intranasal DAILY PRN nasal 05/10/24 mcg/actuation nasal congestion 30 days #16 grams spray,suspension (Flonase Allergy Relief) Rollator Walker #1 ea 09/06/24 quetiapine 25 mg tablet 25 mg PO BID PRN agitation #60 tabs 09/26/24 cholecalciferol (vitamin D3) 1,250 1,250 mcg PO .once a week 90 days 09/27/24 mcg (50,000 unit) capsule #12 caps albuterol sulfate 90 mcg/actuation See Rx Instructions .Route 10/03/24 aerosol inhaler .COMPLEX #9 grams promethazine 25 mg tablet 12.5 - 25 mg (0.5 - 1 x 25 mg) PO 10/05/24 Q6H PRN nausea and vomiting #10 tabs lamotrigine 200 mg tablet 200 mg PO DAILY@06 #30 tabs 10/25/24 quetiapine 50 mg tablet 50 mg PO BID #60 tabs 10/25/24 trazodone 300 mg tablet 300 mg PO .q hs PRN sleep #30 tabs 10/25/24 vortioxetine 20 mg tablet 20 mg PO .q am #30 tabs 10/25/24 (Trintellix) Allergies Allergy/AdvReac Type Severity Reaction Status Date / Time haloperidol (From Haldol) Allergy Severe unknown Verified 10/27/24 23:01 Penicillins Allergy Severe ALGY-Anaphy Verified 10/27/24 23:01 laxis sulfamethoxazole (From Allergy Severe ALGY-Hives Verified 10/27/24 23:01 Bactrim) Tetracyclines Allergy Severe ALGY-Hives Verified 10/27/24 23:01 gabapentin (From Neurontin) Allergy Intermediate ADR-Halluci Verified 10/27/24 23:01 nating ketorolac (From Toradol) Allergy Intermediate ALGY-Rash Verified 10/27/24 23:01 lithium Allergy Intermediate ADR-Halluci Verified 10/27/24 23:01 nating fentanyl Allergy Mild rash Verified 10/27/24 23:01 adhesive tape Allergy Rash Verified 10/27/24 23:01 codeine Allergy GI Verified 10/27/24 23:01 duloxetine (From Cymbalta) Allergy ALGY-Rash Verified 10/27/24 23:01 fluoxetine Allergy ADR-Migrain Verified 10/27/24 23:01 e metoclopramide (From Reglan) Allergy ADR-Shakine Verified 10/27/24 23:01 ss nitroglycerin Allergy ADV-Weaknes Verified 10/27/24 23:01 s tramadol Allergy Unknown Verified 10/27/24 23:01 trimethoprim (From Bactrim) Allergy ALGY-Hives Verified 10/27/24 23:01 ziprasidone (From Geodon) AdvReac Severe ADR-Halluci Verified 10/27/24 23:01 nating risperidone (From Risperdal) AdvReac ADR-Halluci Verified 10/27/24 23:01 nating [facility] ED PFSH: Medical History Chronic gastritis without bleeding Insomnia Tobacco use disorder Opioid dependence, uncomplicated Cannabis dependence, uncomplicated Psychiatric care Tardive dyskinesia Esophageal stricture Cystitis cystica Restrictive lung disease Chronic back pain greater than 3 months duration Borderline personality disorder Schizoaffective disorder, bipolar type Urgency incontinence Neurogenic bladder Dysphagia COPD (chronic obstructive pulmonary disease) GERD without esophagitis Foreign body in bladder Bladder stone Chronic anxiety Surgical History H/O bladder repair surgery MESH REPAIR H/O esophagogastroduodenoscopy (09/21/20) H/O colonoscopy with polypectomy History of foot surgery sx in 2009. Screws placed by Dr. Don. S/P bronchoscopy with biopsy History of ureter stent History of breast biopsy Hx of cholecystectomy H/O: hysterectomy History of appendectomy Family History Mother No problems noted. Father No problems noted. Other Asthma Cancer Diabetes Heart disease Social History Smoking and tobacco/nicotine status: current every day tobacco/nicotine user cigarettes Packs smoked per day: 1 Years cigarettes smoked: 20 [ Other cigarette details: Hx of 1 PPD x 20 Years, started at age 27] Quit status (tobacco/nicotine): considering quitting Second hand smoke exposure: Yes Alcohol intake: never Substance/Drug Use: former Lives independently: Yes Household members: spouse Marital status: Number of children: 3 Current occupational status: disabled Do you think of yourself as: Straight/Heterosexual Current gender identity: Female Physical Exam Const: COMMON NORMALS: no acute distress GENERAL APPEARANCE: cooperative; not ill appearing and not frail appearing HENMT: COMMON NORMALS: normocephalic, atraumatic and Normal external nose present HEAD & SCALP: normocephalic and atraumatic FACE & SINUS: normal facial exam and face symmetric NOSE: Normal external nose present Eye: COMMON NORMALS: Equal, round and reactive pupils present and EOMs intact bilaterally PUPIL: Yes Equal, round and reactive pupils present Neck/C-Spine: GENERAL: Yes trachea midline Chest: CHEST: Yes Symmetrical chest wall rise Resp: COMMON NORMALS: normal respiratory effort, No retractions, No use of accessory muscles and clear to auscultation bilaterally AUSCULTATION: clear to auscultation bilaterally Cardio: COMMON NORMALS: regular rate and regular rhythm RATE: regular rate RHYTHM: regular rhythm GI: COMMON NORMALS: Normal to inspection, nondistended, normoactive bowel sounds present PALPATION: Yes Tenderness to palpation present (GI) (Epigastric) Extremity: COMMON NORMALS: no pedal edema Neuro: JEANINE COMA SCALE: document GCS findings Jeanine coma scale eye opening: Spontaneous Jeanine coma scale verbal response: Orientated Jeanine coma scale motor response: Obey commands Jeanine coma scale total score: 15 SENSORY EXAM: Yes extremities (intact) Psych: COMMON NORMALS: speech normal SPEECH: Yes normal speech Skin: COMMON NORMALS: no rashes or lesions noted GENERAL SKIN EXAM: no rashes or lesions noted Course Vital Signs: Vital signs: Vital Signs Temperature 97.9 F 10/27/24 22:58 Pulse Rate 64 10/28/24 03:54 Respiratory Rate 16 10/27/24 22:58 Blood Pressure 119/72 10/28/24 03:54 Pulse Oximetry 93 10/28/24 03:54 Oxygen Delivery Me thod Room Air 10/27/24 22:58 MDM - Chest Pain Medical Decision Making White blood cell count is 17, with no left shift. Her troponin is nondetectable. No ST-T wave changes on EKG. Her bicarbonate level is 19. She is given IV fluids. Pain medication, antiemetics. She is feeling improved. Lab Data 10/28/24 01:37 10/28/24 01:37 Radiology Impressions Chest X-Ray 10/28/24 02:00 IMPRESSION: No acute findings. Laboratory Results WBC 17.52 10^3/uL (3.29-11.43) H 10/28/24 01:37 RBC 4.21 10^6/uL (3.85-5.65) 10/28/24 01:37 Hgb 13.70 g/dL (11.27-16.99) 10/28/24 01:37 Hct 41.7 % (36-47) 10/28/24 01:37 MCV 99.0 fl (85-98) H 10/28/24 01:37 MCH 32.5 pg (27-33) 10/28/24 01:37 MCHC 32.9 g/dL (30-55) 10/28/24 01:37 RDW 14.2 % (12.1-15.1) 10/28/24 01:37 Plt Count 165 10^3/cmm (157-399) 10/28/24 01:37 MPV 9.8 fL (7.4-10.4) 10/28/24 01:37 Neut % (Auto) 74.5 % 10/28/24 01:37 Lymph % (Auto) 17.6 % 10/28/24 01:37 [place] % (Auto) 5.4 % 10/28/24 01:37 Eos % (Auto) 1.4 % 10/28/24 01:37 Baso % (Auto) 0.7 % 10/28/24 01:37 Neut # (Auto) 13.06 10^3/uL (1.8-7.7) H 10/28/24 01:37 Lymph # (Auto) 3.1 10^3/uL (0.8-4.8) 10/28/24 01:37 [place] # (Auto) 1.0 10^3/uL (0.2-0.9) H 10/28/24 01:37 Eos # (Auto) 0.2 10^3/uL (0.0-0.8) 10/28/24 01:37 Baso # (Auto) 0.1 10^3/uL (0.0-0.1) 10/28/24 01:37 Nucleated RBC % (auto) 0 % 10/28/24 01:37 Nucleated RBCs # 0.0 /100WBC 10/28/24 01:37 Sodium 135 mmol/L (136-145) L 10/28/24 01:37 Potassium 4.4 mmol/L (3.5-5.1) 10/28/24 01:37 Chloride 101 mmol/L (98-107) 10/28/24 01:37 Carbon Dioxide 19 mmol/L (22-29) L 10/28/24 01:37 Anion Gap 19.4 (5-19) H 10/28/24 01:37 BUN 14 mg/dL (6-20) 10/28/24 01:37 Creatinine 0.9 mg/dL (0.5-0.9) 10/28/24 01:37 GFR Calculation 64.8 mL/min (90-130) L 10/28/24 01:37 Glucose 104 mg/dL (65-115) 10/28/24 01:37 Calculated Osmolality 281 mOsm/kg (285-295) L 10/28/24 01:37 Calcium 10.4 mg/dL (8.5-10.5) 10/28/24 01:37 Total Bilirubin 0.3 mg/dL (0.15-1.2) 10/28/24 01:37 AST 22 U/L (0-32) 10/28/24 01:37 ALT 12 U/L (0-33) 10/28/24 01:37 Alkaline Phosphatase 115 U/L (35-105) H 10/28/24 01:37 Troponin T Baseline < 6 ng/L (0-10) 10/28/24 01:37 Total Protein 7.3 g/dL (6.6-8.7) 10/28/24 01:37 Albumin 4.1 g/dL (3.5-5.2) 10/28/24 01:37 Globulin 3.2 g/dL (1.3-4.6) 10/28/24 01:37 Urine Color Yellow (Yellow) 10/28/24 02:05 Urine Appearance Clear (CLEAR) 10/28/24 02:05 Urine pH 6.5 (5-7) 10/28/24 02:05 Ur Specific [place] 1.012 (1.005-1.030) 10/28/24 02:05 Urine Protein Negative (Negative) 10/28/24 02:05 Urine Glucose (UA) Negative (Normal) 10/28/24 02:05 Urine Ketones Negative (Negative) 10/28/24 02:05 Urine Blood Negative (Negative) 10/28/24 02:05 Urine Nitrate Negative (Negative) 10/28/24 02:05 Urine Bilirubin Negative (Negative) 10/28/24 02:05 Urine Urobilinogen 0.2 mg/dL (Negative) 10/28/24 02:05 Ur Leukocyte Esterase 1+ (Negative) A 10/28/24 02:05 Urine RBC 0-2 /hpf (0-2) 10/28/24 02:05 Urine WBC 6-10 /hpf (0-5) 10/28/24 02:05 Ur Squamous Epith Cells 11-20 /hpf (0-5) H 10/28/24 02:05 Amorphous Sediment Not Reportable 10/28/24 02:05 Urine Bacteria Trace /hpf (NONE) 10/28/24 02:05 Hyaline Casts 9.07 /lpf 10/28/24 02:05 All radiology interpretation(s) finalized by discharge Discharge Plan Discharge Patient Disposition: Home Clinical Impression: Abdominal pain, epigastric Condition: Stable Prescriptions: No Action pantoprazole 40 mg tablet,delayed release (DR/EC) 40 mg PO BID (DME) SOLE Supports See Rx Instructions .Route .MEDSUPPLY Qty: 1 0RF Rx Instructions: As directed PRE-Auth prednisolone acetate 1 % drops,suspension ophthalmic (eye) fluticasone propionate [Flonase Allergy Relief] 50 mcg/actuation spray,suspension 1 spray intranasal DAILY PRN (Reason: nasal congestion) 30 Days Qty: 16 2RF Rx Instructions: administer into each nostril dicyclomine 10 mg capsule 10 mg PO BID PRN quetiapine 25 mg tablet 25 mg PO BID PRN (Reason: agitation) Qty: 60 2RF Rx Instructions: Take one tablet up to twice a day, if needed, for agitation famotidine 20 mg tablet PO lubiprostone 24 mcg capsule PO lamotrigine 200 mg tablet 200 mg PO DAILY@06 Qty: 30 3RF Rx Instructions: Take one tablet by mouth every morning quetiapine 50 mg tablet 50 mg PO BID Qty: 60 3RF Rx Instructions: Take one tablet by mouth every morning and night trazodone 300 mg tablet 300 mg PO .q hs PRN (Reason: sleep) Qty: 30 3RF Rx Instructions: Take one tablet daily at bedtime, if needed for sleep Trintellix 20 mg tablet 20 mg PO .q am Qty: 30 3RF Rx Instructions: Take one tablet once daily ondansetron HCl 4 mg tablet 4 mg PO Q8H sucralfate [Carafate] 1 gram tablet 1 g PO QID polyethylene glycol 3350 [Miralax] 17 gram/dose powder 4 g PO DAILY nystatin 100,000 unit/gram powder 1 applic topical BID Qty: 30 0RF Rx Instructions: apply locally to B/L groin folds (DME) Rollator Walker See Rx Instructions .Route .MEDSUPPLY Qty: 1 0RF Rx Instructions: As directed HOME: Length of need 4 months cholecalciferol (vitamin D3) 1,250 mcg (50,000 unit) capsule 1,250 mcg PO .once a week 90 Days Qty: 12 0RF albuterol sulfate 90 mcg/actuation HFA aerosol inhaler See Rx Instructions .ROUTE .COMPLEX Qty: 9 0RF Dose Instruction: INHALE 2 PUFFS BY MOUTH EVERY 6 HOURS NEEDED FOR SHORTNESS OF BREATH OR WHEEZING Rx Instructions: INHALE 2 PUFFS BY MOUTH EVERY 6 HOURS NEEDED FOR SHORTNESS OF BREATH OR WHEEZING acetaminophen 500 mg Tablet 1,000 mg PO Q6H PRN (Reason: Pain) promethazine 25 mg tablet 12.5 - 25 mg PO Q6H PRN (Reason: nausea and vomiting) Qty: 10 0RF Rx Instructions: 4 doses during day; last dose no later than 4 hr before bedtime Discharge Orders: Discharge ED (Routine); Ordered 10/28/24 Ordered By: Chivo Deleon Referrals: Dara Tavera FNP [Primary Care Provider, Family Practice] - 1-3 days Patient Instructions: Abdominal Pain (ED), Opioid Safety, Pain Management Print Language: Afghan Coding Level of Care Code ED [employer] for Shellie Guallpa
[2024-10-28 02:40] LABS: UA Slide Review UA Slide Review Perf
[2024-10-28 02:41] LABS: Add Urine Culture? No
[2024-10-28] MEDS: ondansetron 2 mg/ML SDV 2 mL 4 MG IVP (02:42)
[2024-10-28] MEDS: lidocaine 2% viscous 15 ML, aluminum-mag hydrox-simethicon 30 ML, sucralfate oral liq 1 GM PO (02:42)
[2024-10-28] MEDS: prochlorperazine 10 mg/2 mL Inj IVP (02:42)
[2024-10-28] MEDS: sodium chloride 0.9% 500 ML 999 ML IV (02:44)
[2024-10-28] MEDS: HYDROmorphone 0.5 MG/0.5 ML INJ 1 MG IVP (03:03)
[2024-10-28 03:54] VITALS: BP 119/72; PULSE 64; O2SAT 93
== END 2024-10-28 03:55 | disposition home or self-care (01) ==
PROVIDERS: Emergency Provider Emergency Medicine; PCP Registered Nurse
DX: R10.13 Epigastric pain (principal); F17.210 Nicotine dependence, cigarettes, uncomplicated; J44.9 Chronic obstructive pulmonary disease, unspecified
CPT/HCPCS: 36415; 71045; 80053; 81001; 84484; 85025; 93005; 96361; 96374; 96375; 99285; J0780; J1171; J2405; J7040; J9999

== ENCOUNTER 2024-11-03 20:38 | Emergency (ER) | payer MEDICARE, MEDICAID, SELFPAY ==
[2024-11-03 20:39] VITALS: BP 83/54; PULSE 81; RESP 16; TEMP 36.7; O2SAT 96; BMI 29.8
[2024-11-04 01:14] VITALS: BP 94/56; PULSE 64; RESP 16; O2SAT 93
[2024-11-04 01:23] LABS: Basophils # 0.1 10^3/uL (0.0-0.1); Basophils % 0.6 %; Eosinophils # 0.3 10^3/uL (0.0-0.8); Eosinophils % 1.8 %; Hematocrit 38.7 % (36-47); Lymphocytes # 2.7 10^3/uL (0.8-4.8); Lymphocytes % 16.6 %; Mean Corpuscular HGB Conc 33.1 g/dL (30-55); Mean Corpuscular Hemoglobin 32.3 pg (27-33); Mean Corpuscular Volume 97.7 fl (85-98); Mean Platelet Volume 10.1 fL (7.4-10.4); Monocytes # 0.9 10^3/uL (0.2-0.9); Monocytes % 5.4 %; Neutrophils # 12.02 10^3/uL (1.8-7.7); Neutrophils % 75.3 %; Nucleated Red Blood Cells % 0 %; Platelet Count 223 10^3/cmm (157-399); Red Blood Count 3.96 10^6/uL (3.85-5.65); Red Cell Distribution Width 14.4 % (12.1-15.1); White Blood Count 15.96 10^3/uL (3.29-11.43)
[2024-11-04 01:30] VITALS: BP 104/65; PULSE 63; RESP 16; O2SAT 92
[2024-11-04 01:33] LABS: Alanine Aminotransferase 9 U/L (0-33); Albumin Level 3.9 g/dL (3.5-5.2); Alkaline Phosphatase 112 U/L (35-105); Anion Gap 15.5 (5-19); Aspartate Amino Transferase 13 U/L (0-32); Blood Urea Nitrogen 14 mg/dL (6-20); C Reactive Protein 20.5 mg/L (0.0-4.9); Calcium 9.3 mg/dL (8.5-10.5); Carbon Dioxide 24 mmol/L (22-29); Chloride 103 mmol/L (98-107); Creatinine Clr Calc Pharmacy 65.7083; Glomerular Filtration Rate 64.8 mL/min (90-130); Glucose 113 mg/dL (65-115); Lipase 14 U/L (13-60); Osmolality Calculated 289 mOsm/kg (285-295); Potassium 3.5 mmol/L (3.5-5.1); Sodium 139 mmol/L (136-145); Total Bilirubin 0.2 mg/dL (0.15-1.2); Total Protein 6.9 g/dL (6.6-8.7)
--- NOTE | 2024-11-04 01:38 | W.ED.ABDPA2 ---
HPI - Abdominal Pain General: Chief Complaint: Abdominal Pain Stated Complaint: abdomen pain Time Seen by Provider: 11/04/24 01:04 History of Present Illness: 58 year old female well known to the emergency department service. She presents with an exacerbation of her chronic abdominal pain. She localizes her pain to the left lower quadrant. She says, ?I think it is my diverticulitis.? No fever. No vomiting. She has been nauseated. She tried anti emetics at home with no relief. She states that she has an appointment with her GI doctor later Today. Related Data Home Medications ?Medication ?Instructions ?Recorded ?Confirmed acetaminophen 500 mg tablet 1,000 mg PO Q6H PRN Pain 07/09/21 10/25/24 pantoprazole 40 mg tablet,delayed 40 mg PO BID 07/27/23 10/25/24 release ondansetron HCl 4 mg tablet 4 mg PO Q8H 01/22/24 10/25/24 prednisolone acetate 1 % eye drp ophthalmic (eye) 05/10/24 10/25/24 drops,suspension dicyclomine 10 mg capsule 10 mg PO BID PRN 05/27/24 10/25/24 polyethylene glycol 3350 17 4 g PO DAILY 05/27/24 10/25/24 gram/dose oral powder (Miralax) sucralfate 1 gram tablet (Carafate) 1 g PO QID 05/27/24 10/25/24 famotidine 20 mg tablet mg PO 09/23/24 10/25/24 lubiprostone 24 mcg capsule mcg PO 09/23/24 10/25/24 Previous Rx's ?Medication ?Instructions ?Recorded nystatin 100,000 unit/gram topical 1 applic topical BID #30 grams 06/16/22 powder SOLE Supports #1 ea 01/01/24 fluticasone propionate 50 1 spray intranasal DAILY PRN nasal 05/10/24 mcg/actuation nasal congestion 30 days #16 grams spray,suspension (Flonase Allergy Relief) Rollator Walker #1 ea 09/06/24 quetiapine 25 mg tablet 25 mg PO BID PRN agitation #60 tabs 09/26/24 cholecalciferol (vitamin D3) 1,250 1,250 mcg PO .once a week 90 days 09/27/24 mcg (50,000 unit) capsule #12 caps promethazine 25 mg tablet 12.5 - 25 mg (0.5 - 1 x 25 mg) PO 10/05/24 Q6H PRN nausea and vomiting #10 tabs lamotrigine 200 mg tablet 200 mg PO DAILY@06 #30 tabs 10/25/24 quetiapine 50 mg tablet 50 mg PO BID #60 tabs 10/25/24 trazodone 300 mg tablet 300 mg PO .q hs PRN sleep #30 tabs 10/25/24 vortioxetine 20 mg tablet 20 mg PO .q am #30 tabs 10/25/24 (Trintellix) albuterol sulfate 90 mcg/actuation See Rx Instructions .Route 10/28/24 aerosol inhaler .COMPLEX #9 grams ciprofloxacin HCl 500 mg tablet 500 mg PO BID #14 tabs 11/04/24 metronidazole 500 mg tablet 500 mg PO BID 7 days #14 tabs 11/04/24 Allergies Allergy/AdvReac Type Severity Reaction Status Date / Time haloperidol (From Haldol) Allergy Severe unknown Verified 10/27/24 23:01 Penicillins Allergy Severe ALGY-Anaphy Verified 10/27/24 23:01 laxis sulfamethoxazole (From Allergy Severe ALGY-Hives Verified 10/27/24 23:01 Bactrim) Tetracyclines Allergy Severe ALGY-Hives Verified 10/27/24 23:01 gabapentin (From Neurontin) Allergy Intermediate ADR-Halluci Verified 10/27/24 23:01 nating ketorolac (From Toradol) Allergy Intermediate ALGY-Rash Verified 10/27/24 23:01 lithium Allergy Intermediate ADR-Halluci Verified 10/27/24 23:01 nating fentanyl Allergy Mild rash Verified 10/27/24 23:01 adhesive tape Allergy Rash Verified 10/27/24 23:01 codeine Allergy GI Verified 10/27/24 23:01 duloxetine (From Cymbalta) Allergy ALGY-Rash Verified 10/27/24 23:01 fluoxetine Allergy ADR-Migrain Verified 10/27/24 23:01 e metoclopramide (From Reglan) Allergy ADR-Shakine Verified 10/27/24 23:01 ss nitroglycerin Allergy ADV-Weaknes Verified 10/27/24 23:01 s tramadol Allergy Unknown Verified 10/27/24 23:01 trimethoprim (From Bactrim) Allergy ALGY-Hives Verified 10/27/24 23:01 ziprasidone (From Geodon) AdvReac Severe ADR-Halluci Verified 10/27/24 23:01 nating risperidone (From Risperdal) AdvReac ADR-Halluci Verified 10/27/24 23:01 nating [facility] ED PFSH: Medical History Chronic gastritis without bleeding Insomnia Tobacco use disorder Opioid dependence, uncomplicated Cannabis dependence, uncomplicated Psychiatric care Tardive dyskinesia Esophageal stricture Cystitis cystica Restrictive lung disease Chronic back pain greater than 3 months duration Borderline personality disorder Schizoaffective disorder, bipolar type Urgency incontinence Neurogenic bladder Dysphagia COPD (chronic obstructive pulmonary disease) GERD without esophagitis Foreign body in bladder Bladder stone Chronic anxiety Surgical History H/O bladder repair surgery MESH REPAIR H/O esophagogastroduodenoscopy (09/21/20) H/O colonoscopy with polypectomy History of foot surgery sx in 2009. Screws placed by Dr. Don. S/P bronchoscopy with biopsy History of ureter stent History of breast biopsy Hx of cholecystectomy H/O: hysterectomy History of appendectomy Family History Mother No problems noted. Father No problems noted. Other Asthma Cancer Diabetes Heart disease Social History Smoking and tobacco/nicotine status: current every day tobacco/nicotine user cigarettes Packs smoked per day: 1 Years cigarettes smoked: 20 [ Other cigarette details: Hx of 1 PPD x 20 Years, started at age 27] Quit status (tobacco/nicotine): considering quitting Second hand smoke exposure: Yes Alcohol intake: never Substance/Drug Use: former Lives independently: Yes Household members: spouse Marital status: Number of children: 3 Current occupational status: disabled Do you think of yourself as: Straight/Heterosexual Current gender identity: Female Physical Exam Const: COMMON NORMALS: no acute distress GENERAL APPEARANCE: cooperative; not ill appearing and not frail appearing HENMT: COMMON NORMALS: normocephalic, atraumatic and Normal external nose present HEAD & SCALP: normocephalic and atraumatic FACE & SINUS: normal facial exam and face symmetric NOSE: Normal external nose present Eye: COMMON NORMALS: Equal, round and reactive pupils present and EOMs intact bilaterally PUPIL: Yes Equal, round and reactive pupils present Neck/C-Spine: GENERAL: Yes trachea midline Chest: CHEST: Yes Symmetrical chest wall rise Resp: COMMON NORMALS: normal respiratory effort, No retractions, No use of accessory muscles and clear to auscultation bilaterally AUSCULTATION: clear to auscultation bilaterally Cardio: COMMON NORMALS: regular rate and regular rhythm RATE: regular rate RHYTHM: regular rhythm GI: COMMON NORMALS: Normal to inspection, nondistended, normoactive bowel sounds present PALPATION: Yes Tenderness to palpation present (GI) (diffuse) Extremity: COMMON NORMALS: no pedal edema Neuro: JEANINE COMA SCALE: document GCS findings [place] coma scale eye opening: Spontaneous [place] coma scale verbal response: Orientated Jeanine coma scale motor response: Obey commands [place] coma scale total score: 15 SENSORY EXAM: Yes extremities (intact) Psych: COMMON NORMALS: speech normal SPEECH: Yes normal speech Skin: COMMON NORMALS: no rashes or lesions noted GENERAL SKIN EXAM: no rashes or lesions noted Course Vital Signs: Vital signs: Vital Signs Temperature 98.1 F 11/03/24 20:39 Pulse Rate 66 11/04/24 03:21 Respiratory Rate 16 11/04/24 03:21 Blood Pressure 106/60 11/04/24 03:21 Pulse Oximetry 95 11/04/24 03:21 Oxygen Delivery Me thod Room Air 11/03/24 20:39 MDM - Abdominal Pain Medical Decision Making white blood cell count is 16. This is less than her prior Leukocytosis. there is no left shift.Other laboratory findings are not remarkable. CRP is mildly elevated at 20. Lipase is normal. She'll be treated clinically for diverticulitis. She has an appointment with GI later today. She's encouraged to keep it. Return for any worsening symptoms. Lab Data 11/04/24 01:09 11/04/24 01:09 Labs/Radiology: Laboratory Results WBC 15.96 10^3/uL (3.29-11.43) H 11/04/24 01:09 RBC 3.96 10^6/uL (3.85-5.65) 11/04/24 01:09 Hgb 12.80 g/dL (11.27-16.99) 11/04/24 01:09 Hct 38.7 % (36-47) 11/04/24 01:09 MCV 97.7 fl (85-98) 11/04/24 01:09 MCH 32.3 pg (27-33) 11/04/24 01:09 MCHC 33.1 g/dL (30-55) 11/04/24 01:09 RDW 14.4 % (12.1-15.1) 11/04/24 01:09 Plt Count 223 10^3/cmm (157-399) 11/04/24 01:09 MPV 10.1 fL (7.4-10.4) 11/04/24 01:09 Neut % (Auto) 75.3 % 11/04/24 01:09 Lymph % (Auto) 16.6 % 11/04/24 01:09 Mineral % (Auto) 5.4 % 11/04/24 01:09 Eos % (Auto) 1.8 % 11/04/24 01:09 Baso % (Auto) 0.6 % 11/04/24 01:09 Neut # (Auto) 12.02 10^3/uL (1.8-7.7) H 11/04/24 01:09 Lymph # (Auto) 2.7 10^3/uL (0.8-4.8) 11/04/24 01:09 Mineral # (Auto) 0.9 10^3/uL (0.2-0.9) 11/04/24 01:09 Eos # (Auto) 0.3 10^3/uL (0.0-0.8) 11/04/24 01:09 Baso # (Auto) 0.1 10^3/uL (0.0-0.1) 11/04/24 01:09 Nucleated RBC % (auto) 0 % 11/04/24 01:09 Nucleated RBCs # 0.0 /100WBC 11/04/24 01:09 Sodium 139 mmol/L (136-145) 11/04/24 01:09 Potassium 3.5 mmol/L (3.5-5.1) 11/04/24 01:09 Chloride 103 mmol/L (98-107) 11/04/24 01:09 Carbon Dioxide 24 mmol/L (22-29) 11/04/24 01:09 Anion Gap 15.5 (5-19) 11/04/24 01:09 BUN 14 mg/dL (6-20) 11/04/24 01:09 Creatinine 0.9 mg/dL (0.5-0.9) 11/04/24 01:09 GFR Calculation 64.8 mL/min (90-130) L 11/04/24 01:09 Glucose 113 mg/dL (65-115) 11/04/24 01:09 Calculated Osmolality 289 mOsm/kg (285-295) 11/04/24 01:09 Calcium 9.3 mg/dL (8.5-10.5) 11/04/24 01:09 Total Bilirubin 0.2 mg/dL (0.15-1.2) 11/04/24 01:09 AST 13 U/L (0-32) 11/04/24 01:09 ALT 9 U/L (0-33) 11/04/24 01:09 Alkaline Phosphatase 112 U/L (35-105) H 11/04/24 01:09 C-Reactive Protein 20.5 mg/L (0.0-4.9) H 11/04/24 01:09 Total Protein 6.9 g/dL (6.6-8.7) 11/04/24 01:09 Albumin 3.9 g/dL (3.5-5.2) 11/04/24 01:09 Globulin 3.0 g/dL (1.3-4.6) 11/04/24 01:09 Lipase 14 U/L (13-60) 11/04/24 01:09 No radiology studies performed this visit Discharge Plan Discharge Patient Disposition: Home Clinical Impression: Diverticulitis Condition: Stable Prescriptions: New ciprofloxacin HCl 500 mg tablet 500 mg PO BID Qty: 14 0RF metronidazole 500 mg tablet 500 mg PO BID 7 Days Qty: 14 0RF No Action pantoprazole 40 mg tablet,delayed release (DR/EC) 40 mg PO BID (DME) SOLE Supports See Rx Instructions .Route .MEDSUPPLY Qty: 1 0RF Rx Instructions: As directed PRE-Auth prednisolone acetate 1 % drops,suspension ophthalmic (eye) fluticasone propionate [Flonase Allergy Relief] 50 mcg/actuation spray,suspension 1 spray intranasal DAILY PRN (Reason: nasal congestion) 30 Days Qty: 16 2RF Rx Instructions: administer into each nostril dicyclomine 10 mg capsule 10 mg PO BID PRN quetiapine 25 mg tablet 25 mg PO BID PRN (Reason: agitation) Qty: 60 2RF Rx Instructions: Take one tablet up to twice a day, if needed, for agitation famotidine 20 mg tablet PO lubiprostone 24 mcg capsule PO lamotrigine 200 mg tablet 200 mg PO DAILY@06 Qty: 30 3RF Rx Instructions: Take one tablet by mouth every morning quetiapine 50 mg tablet 50 mg PO BID Qty: 60 3RF Rx Instructions: Take one tablet by mouth every morning and night trazodone 300 mg tablet 300 mg PO .q hs PRN (Reason: sleep) Qty: 30 3RF Rx Instructions: Take one tablet daily at bedtime, if needed for sleep Trintellix 20 mg tablet 20 mg PO .q am Qty: 30 3RF Rx Instructions: Take one tablet once daily ondansetron HCl 4 mg tablet 4 mg PO Q8H sucralfate [Carafate] 1 gram tablet 1 g PO QID polyethylene glycol 3350 [Miralax] 17 gram/dose powder 4 g PO DAILY nystatin 100,000 unit/gram powder 1 applic topical BID Qty: 30 0RF Rx Instructions: apply locally to B/L groin folds (DME) Rollator Walker See Rx Instructions .Route .MEDSUPPLY Qty: 1 0RF Rx Instructions: As directed HOME: Length of need 4 months cholecalciferol (vitamin D3) 1,250 mcg (50,000 unit) capsule 1,250 mcg PO .once a week 90 Days Qty: 12 0RF albuterol sulfate 90 mcg/actuation HFA aerosol inhaler See Rx Instructions .ROUTE .COMPLEX Qty: 9 0RF Dose Instruction: INHALE 2 PUFFS BY MOUTH EVERY 6 HOURS NEEDED FOR SHORTNESS OF BREATH OR WHEEZING Rx Instructions: INHALE 2 PUFFS BY MOUTH EVERY 6 HOURS NEEDED FOR SHORTNESS OF BREATH OR WHEEZING acetaminophen 500 mg Tablet 1,000 mg PO Q6H PRN (Reason: Pain) promethazine 25 mg tablet 12.5 - 25 mg PO Q6H PRN (Reason: nausea and vomiting) Qty: 10 0RF Rx Instructions: 4 doses during day; last dose no later than 4 hr before bedtime Discharge Orders: Discharge ED (Routine); Ordered 11/04/24 Ordered By: Chivo Deleon Referrals: Dara Tavera FNP [Primary Care Provider, Family Practice] - 1-3 days Patient Instructions: Diverticulitis (ED), Opioid Safety, Pain Management Activity Restrictions/Additional Instructions: Antibiotics as directed. See your GI doctor later today. Let them know you were seen here, and given empiric antibiotics for diverticulitis. Return for problems. Print Language: Guyanese Coding Level of Care Code ED [employer] Scientist for Shellie Guallpa
[2024-11-04] MEDS: prochlorperazine 10 mg/2 mL Inj IVP (01:50)
[2024-11-04] MEDS: HYDROmorphone 0.5 MG/0.5 ML INJ 1 MG IVP (01:50)
[2024-11-04] MEDS: sodium chloride 0.9% 1,000 ML 999 ML IV (01:50)
[2024-11-04 02:00] VITALS: BP 92/52; PULSE 62; RESP 16; O2SAT 91
[2024-11-04 02:30] VITALS: BP 107/59; PULSE 63; RESP 16; O2SAT 96
[2024-11-04 03:21] VITALS: BP 106/60; PULSE 66; RESP 16; O2SAT 93; O2SAT 95
[2024-11-04] MEDS: metroNIDAZOLE 500 MG Tablet PO (03:24)
[2024-11-04] MEDS: ciprofloxacin 500 mg Tablet PO (03:24)
== END 2024-11-04 03:26 | disposition home or self-care (01) ==
PROVIDERS: Emergency Provider Emergency Medicine; PCP Registered Nurse
DX: K57.92 Diverticulitis of intestine, part unspecified, without perforation or abscess without bleeding (principal); F17.210 Nicotine dependence, cigarettes, uncomplicated; J44.9 Chronic obstructive pulmonary disease, unspecified
CPT/HCPCS: 36415; 80053; 83690; 85025; 86140; 96361; 96374; 96375; 99284; J0780; J1171; J7030; J9999

== ENCOUNTER 2024-11-17 21:31 | Emergency (ER) | payer MEDICARE, MEDICAID, SELFPAY ==
[2024-11-17 21:58] VITALS: BP 94/51; PULSE 85; RESP 16; TEMP 36.3; O2SAT 96
[2024-11-17 22:58] LABS: Basophils # 0.1 10^3/uL (0.0-0.1); Basophils % 0.7 %; Eosinophils # 0.2 10^3/uL (0.0-0.8); Eosinophils % 1.7 %; Hematocrit 37.2 % (36-47); Lymphocytes # 3.4 10^3/uL (0.8-4.8); Lymphocytes % 26.8 %; Mean Corpuscular HGB Conc 33.3 g/dL (30-55); Mean Corpuscular Hemoglobin 32.5 pg (27-33); Mean Corpuscular Volume 97.4 fl (85-98); Monocytes % 7.9 %; Neutrophils # 7.93 10^3/uL (1.8-7.7); Neutrophils % 62.6 %; Nucleated Red Blood Cells % 0 %; Platelet Count 247 10^3/cmm (157-399); Red Blood Count 3.82 10^6/uL (3.85-5.65); Red Cell Distribution Width 14.6 % (12.1-15.1); White Blood Count 12.68 10^3/uL (3.29-11.43)
[2024-11-17 23:06] LABS: Bilirubin Urine Negative (Negative); Blood Urine Negative (Negative); Glucose Urine UA Negative (Normal); Ketones Urine Negative (Negative); Leukocyte Esterase Urine Trace (Negative); Nitrate Urine Negative (Negative); Protein Urine Negative (Negative); Specific Gravity, Urine 1.013 (1.005-1.030); Urine Appearance Clear (CLEAR); Urine Color Yellow (Yellow); Urobilinogen Urine 0.2 mg/dL (Negative)
[2024-11-17 23:09] LABS: Bacteria Urine None Seen /hpf; Hyaline Casts Urine 0-4 /lpf; RBC Urine 0-2 /hpf (0-2); Squamous Epithelial Cell Urine 0-5 /hpf (0-5); WBC Urine 0-5 /hpf (0-5)
[2024-11-17 23:12] LABS: Alanine Aminotransferase 10 U/L (0-33); Albumin Level 3.9 g/dL (3.5-5.2); Alkaline Phosphatase 103 U/L (35-105); Anion Gap 15.7 (5-19); Aspartate Amino Transferase 12 U/L (0-32); Blood Urea Nitrogen 23 mg/dL (6-20); C Reactive Protein 22.4 mg/L (0.0-4.9); Calcium 9.2 mg/dL (8.5-10.5); Carbon Dioxide 23 mmol/L (22-29); Chloride 100 mmol/L (98-107); Globulin 2.8 g/dL (1.3-4.6); Glomerular Filtration Rate 51.2 mL/min (90-130); Glucose 108 mg/dL (65-115); Lipase 27 U/L (13-60); Osmolality Calculated 284 mOsm/kg (285-295); Potassium 3.7 mmol/L (3.5-5.1); Sodium 135 mmol/L (136-145); Total Bilirubin 0.2 mg/dL (0.15-1.2); Total Protein 6.7 g/dL (6.6-8.7)
[2024-11-18 01:17] VITALS: BP 117/57; PULSE 69; RESP 16; O2SAT 94
[2024-11-18 01:30] VITALS: BP 111/73; PULSE 73; RESP 16; O2SAT 94
[2024-11-18] MEDS: sodium chloride 0.9% 1,000 ML 999 ML IV (01:44)
[2024-11-18] MEDS: prochlorperazine 10 mg/2 mL Inj IVP (01:44)
[2024-11-18] MEDS: HYDROmorphone 0.5 MG/0.5 ML INJ 1 MG IVP (01:45)
--- NOTE | 2024-11-18 02:26 | W.ED.ABDPA2 ---
HPI - Abdominal Pain General: Chief Complaint: Abdominal Pain Stated Complaint: ABDOMEN PAIN Time Seen by Provider: 11/18/24 01:22 History of Present Illness: 59-year-old female well-known to the emergency department. She presents with generalized, but worse in the left lower quadrant abdominal pain. She was seen 2 weeks ago for similar complaints. She was placed on antibiotics for clinically diagnosed diverticulitis. She followed up with her GI practitioner, and was improved at that point. Pain came back yesterday evening. She has vomited at home. She took Phenergan, Zofran, and Compazine without relief, so she presents to the emergency department. She states that she feels dehydrated. No fever. Related Data Home Medications ?Medication ?Instructions ?Recorded ?Confirmed acetaminophen 500 mg tablet 1,000 mg PO Q6H PRN Pain 07/09/21 10/25/24 pantoprazole 40 mg tablet,delayed 40 mg PO BID 07/27/23 10/25/24 release ondansetron HCl 4 mg tablet 4 mg PO Q8H 01/22/24 10/25/24 prednisolone acetate 1 % eye drp ophthalmic (eye) 05/10/24 10/25/24 drops,suspension dicyclomine 10 mg capsule 10 mg PO BID PRN 05/27/24 10/25/24 polyethylene glycol 3350 17 4 g PO DAILY 05/27/24 10/25/24 gram/dose oral powder (Miralax) sucralfate 1 gram tablet (Carafate) 1 g PO QID 05/27/24 10/25/24 famotidine 20 mg tablet mg PO 09/23/24 10/25/24 lubiprostone 24 mcg capsule mcg PO 09/23/24 10/25/24 Previous Rx's ?Medication ?Instructions ?Recorded nystatin 100,000 unit/gram topical 1 applic topical BID #30 grams 06/16/22 powder SOLE Supports #1 ea 01/01/24 fluticasone propionate 50 1 spray intranasal DAILY PRN nasal 05/10/24 mcg/actuation nasal congestion 30 days #16 grams spray,suspension (Flonase Allergy Relief) Rollator Walker #1 ea 09/06/24 quetiapine 25 mg tablet 25 mg PO BID PRN agitation #60 tabs 09/26/24 cholecalciferol (vitamin D3) 1,250 1,250 mcg PO .once a week 90 days 09/27/24 mcg (50,000 unit) capsule #12 caps promethazine 25 mg tablet 12.5 - 25 mg (0.5 - 1 x 25 mg) PO 10/05/24 Q6H PRN nausea and vomiting #10 tabs lamotrigine 200 mg tablet 200 mg PO DAILY@06 #30 tabs 10/25/24 quetiapine 50 mg tablet 50 mg PO BID #60 tabs 10/25/24 trazodone 300 mg tablet 300 mg PO .q hs PRN sleep #30 tabs 10/25/24 vortioxetine 20 mg tablet 20 mg PO .q am #30 tabs 10/25/24 (Trintellix) albuterol sulfate 90 mcg/actuation See Rx Instructions .Route 10/28/24 aerosol inhaler .COMPLEX #9 grams ciprofloxacin HCl 500 mg tablet 500 mg PO BID #14 tabs 11/04/24 Allergies Allergy/AdvReac Type Severity Reaction Status Date / Time haloperidol (From Haldol) Allergy Severe unknown Verified 11/17/24 22:04 Penicillins Allergy Severe ALGY-Anaphy Verified 11/17/24 22:04 laxis sulfamethoxazole (From Allergy Severe ALGY-Hives Verified 11/17/24 22:04 Bactrim) Tetracyclines Allergy Severe ALGY-Hives Verified 11/17/24 22:04 gabapentin (From Neurontin) Allergy Intermediate ADR-Halluci Verified 11/17/24 22:04 nating ketorolac (From Toradol) Allergy Intermediate ALGY-Rash Verified 11/17/24 22:04 lithium Allergy Intermediate ADR-Halluci Verified 11/17/24 22:04 nating fentanyl Allergy Mild rash Verified 11/17/24 22:04 adhesive tape Allergy Rash Verified 11/17/24 22:04 codeine Allergy GI Verified 11/17/24 22:04 duloxetine (From Cymbalta) Allergy ALGY-Rash Verified 11/17/24 22:04 fluoxetine Allergy ADR-Migrain Verified 11/17/24 22:04 e metoclopramide (From Reglan) Allergy ADR-Shakine Verified 11/17/24 22:04 ss nitroglycerin Allergy ADV-Weaknes Verified 11/17/24 22:04 s tramadol Allergy Unknown Verified 11/17/24 22:04 trimethoprim (From Bactrim) Allergy ALGY-Hives Verified 11/17/24 22:04 ziprasidone (From Geodon) AdvReac Severe ADR-Halluci Verified 11/17/24 22:04 nating risperidone (From Risperdal) AdvReac ADR-Halluci Verified 11/17/24 22:04 nating [facility] ED PFSH: Medical History Chronic gastritis without bleeding Insomnia Tobacco use disorder Opioid dependence, uncomplicated Cannabis dependence, uncomplicated Psychiatric care Tardive dyskinesia Esophageal stricture Cystitis cystica Restrictive lung disease Chronic back pain greater than 3 months duration Borderline personality disorder Schizoaffective disorder, bipolar type Urgency incontinence Neurogenic bladder Dysphagia COPD (chronic obstructive pulmonary disease) GERD without esophagitis Foreign body in bladder Bladder stone Chronic anxiety Surgical History H/O bladder repair surgery MESH REPAIR H/O esophagogastroduodenoscopy (09/21/20) H/O colonoscopy with polypectomy History of foot surgery sx in 2009. Screws placed by Dr. Don. S/P bronchoscopy with biopsy History of ureter stent History of breast biopsy Hx of cholecystectomy H/O: hysterectomy History of appendectomy Family History Mother No problems noted. Father No problems noted. Other Asthma Cancer Diabetes Heart disease Social History Smoking and tobacco/nicotine status: current every day tobacco/nicotine user cigarettes Packs smoked per day: 1 Years cigarettes smoked: 20 [ Other cigarette details: Hx of 1 PPD x 20 Years, started at age 27] Quit status (tobacco/nicotine): considering quitting Second hand smoke exposure: Yes Alcohol intake: never Substance/Drug Use: former Lives independently: Yes Household members: spouse Marital status: Number of children: 3 Current occupational status: disabled Do you think of yourself as: Straight/Heterosexual Current gender identity: Female Physical Exam Const: COMMON NORMALS: no acute distress GENERAL APPEARANCE: cooperative; not ill appearing and not frail appearing HENMT: COMMON NORMALS: normocephalic, atraumatic and Normal external nose present HEAD & SCALP: normocephalic and atraumatic FACE & SINUS: normal facial exam and face symmetric NOSE: Normal external nose present Eye: COMMON NORMALS: Equal, round and reactive pupils present and EOMs intact bilaterally PUPIL: Yes Equal, round and reactive pupils present Neck/C-Spine: GENERAL: Yes trachea midline Chest: CHEST: Yes Symmetrical chest wall rise Resp: COMMON NORMALS: normal respiratory effort, No retractions, No use of accessory muscles and clear to auscultation bilaterally AUSCULTATION: clear to auscultation bilaterally Cardio: COMMON NORMALS: regular rate and regular rhythm RATE: regular rate RHYTHM: regular rhythm GI: COMMON NORMALS: Normal to inspection, nondistended, normoactive bowel sounds present PALPATION: Yes Tenderness to palpation present (GI) (Diffuse) Extremity: COMMON NORMALS: no pedal edema Neuro: JEANINE COMA SCALE: document GCS findings Jeanine coma scale eye opening: Spontaneous Ejanine coma scale verbal response: Orientated Jeanine coma scale motor response: Obey commands Jeanine coma scale total score: 15 SENSORY EXAM: Yes extremities (intact) Psych: COMMON NORMALS: speech normal SPEECH: Yes normal speech Skin: COMMON NORMALS: no rashes or lesions noted GENERAL SKIN EXAM: no rashes or lesions noted Course Vital Signs: Vital signs: Vital Signs Temperature 97.3 F L 11/17/24 21:58 Pulse Rate 73 11/18/24 02:35 Respiratory Rate 16 11/18/24 02:35 Blood Pressure 133/73 11/18/24 02:35 Pulse Oximetry 97 11/18/24 02:35 Oxygen Delivery Me thod Room Air 11/17/24 21:58 MDM - Abdominal Pain Medical Decision Making Pain improved after Dilaudid, Compazine, and fluids here. Her white blood cell count is down to 12.7 which is reduction from prior. Her CRP is stable at 22. Other laboratory is negative. She has a colonoscopy scheduled for November 27, in 9 days. With improvement in her symptoms. She will be discharged home to return for any worsening symptoms. Lab Data 11/17/24 22:42 11/17/24 22:42 Labs/Radiology: Laboratory Results WBC 12.68 10^3/uL (3.29-11.43) H 11/17/24 22:42 RBC 3.82 10^6/uL (3.85-5.65) L 11/17/24 22:42 Hgb 12.40 g/dL (11.27-16.99) 11/17/24 22:42 Hct 37.2 % (36-47) 11/17/24 22:42 MCV 97.4 fl (85-98) 11/17/24 22:42 MCH 32.5 pg (27-33) 11/17/24 22:42 MCHC 33.3 g/dL (30-55) 11/17/24 22:42 RDW 14.6 % (12.1-15.1) 11/17/24 22:42 Plt Count 247 10^3/cmm (157-399) 11/17/24 22:42 MPV 10.0 fL (7.4-10.4) 11/17/24 22:42 Neut % (Auto) 62.6 % 11/17/24 22:42 Lymph % (Auto) 26.8 % 11/17/24 22:42 [place] % (Auto) 7.9 % 11/17/24 22:42 Eos % (Auto) 1.7 % 11/17/24 22:42 Baso % (Auto) 0.7 % 11/17/24 22:42 Neut # (Auto) 7.93 10^3/uL (1.8-7.7) H 11/17/24 22:42 Lymph # (Auto) 3.4 10^3/uL (0.8-4.8) 11/17/24 22:42 [place] # (Auto) 1.0 10^3/uL (0.2-0.9) H 11/17/24 22:42 Eos # (Auto) 0.2 10^3/uL (0.0-0.8) 11/17/24 22:42 Baso # (Auto) 0.1 10^3/uL (0.0-0.1) 11/17/24 22:42 Nucleated RBC % (auto) 0 % 11/17/24: Nucleated RBCs # 0.0 /100WBC 11/17/24 22:42 Sodium 135 mmol/L (136-145) L 11/17/24 22:42 Potassium 3.7 mmol/L (3.5-5.1) 11/17/24 22:42 Chloride 100 mmol/L (98-107) 11/17/24: Carbon Dioxide 23 mmol/L (22-29) 11/17/24 22:42 Anion Gap 15.7 (5-19) 11/17/24 22:42 BUN 23 mg/dL (6-20) H 11/17/24 22:42 Creatinine 1.1 mg/dL (0.5-0.9) H 11/17/24 22:42 GFR Calculation 51.2 mL/min (90-130) L 11/17/24 22:42 Glucose 108 mg/dL (65-115) 11/17/24 22:42 Calculated Osmolality 284 mOsm/kg (285-295) L 11/17/24 22:42 Calcium 9.2 mg/dL (8.5-10.5) 11/17/24 22:42 Total Bilirubin 0.2 mg/dL (0.15-1.2) 11/17/24 22:42 AST 12 U/L (0-32) 11/17/24 22:42 ALT 10 U/L (0-33) 11/17/24 22:42 Alkaline Phosphatase 103 U/L (35-105) 11/17/24 22:42 C-Reactive Protein 22.4 mg/L (0.0-4.9) H 11/17/24 22:42 Total Protein 6.7 g/dL (6.6-8.7) 11/17/24 22:42 Albumin 3.9 g/dL (3.5-5.2) 11/17/24 22:42 Globulin 2.8 g/dL (1.3-4.6) 11/17/24 22:42 Lipase 27 U/L (13-60) 11/17/24 22:42 Urine Color Yellow (Yellow) 11/17/24 22:31 Urine Appearance Clear (CLEAR) 11/17/24 22: Urine pH 7.0 (5-7) 11/17/24 22: Ur Specific [place] 1.013 (1.005-1.030) 11/17/24 22: Urine Protein Negative (Negative) 11/17/24 22: Urine Glucose (UA) Negative (Normal) 11/17/24 22: Urine Ketones Negative (Negative) 11/17/24 22: Urine Blood Negative (Negative) 11/17/24 22: Urine Nitrate Negative (Negative) 11/17/24 22: Urine Bilirubin Negative (Negative) 11/17/24 22:31 Urine Urobilinogen 0.2 mg/dL (Negative) 11/17/24 22:31 Ur Leukocyte Esterase Trace (Negative) A 11/17/24 22:31 Urine RBC 0-2 /hpf (0-2) 11/17/24 22:31 Urine WBC 0-5 /hpf (0-5) 11/17/24 22:31 Ur Squamous Epith Cells 0-5 /hpf (0-5) 11/17/24 22:31 Amorphous Sediment Not Reportable 11/17/24 22:31 Urine Bacteria None seen /hpf (NONE) 11/17/24 22:31 Hyaline Casts 0-4 /lpf H 11/17/24 22:31 No radiology studies performed this visit Discharge Plan Discharge Patient Disposition: Home Clinical Impression: Abdominal pain Condition: Stable Prescriptions: No Action pantoprazole 40 mg tablet,delayed release (DR/EC) 40 mg PO BID (DME) SOLE Supports See Rx Instructions .Route .MEDSUPPLY Qty: 1 0RF Rx Instructions: As directed PRE-Auth prednisolone acetate 1 % drops,suspension ophthalmic (eye) fluticasone propionate [Flonase Allergy Relief] 50 mcg/actuation spray,suspension 1 spray intranasal DAILY PRN (Reason: nasal congestion) 30 Days Qty: 16 2RF Rx Instructions: administer into each nostril dicyclomine 10 mg capsule 10 mg PO BID PRN quetiapine 25 mg tablet 25 mg PO BID PRN (Reason: agitation) Qty: 60 2RF Rx Instructions: Take one tablet up to twice a day, if needed, for agitation famotidine 20 mg tablet PO lubiprostone 24 mcg capsule PO lamotrigine 200 mg tablet 200 mg PO DAILY@06 Qty: 30 3RF Rx Instructions: Take one tablet by mouth every morning quetiapine 50 mg tablet 50 mg PO BID Qty: 60 3RF Rx Instructions: Take one tablet by mouth every morning and night trazodone 300 mg tablet 300 mg PO .q hs PRN (Reason: sleep) Qty: 30 3RF Rx Instructions: Take one tablet daily at bedtime, if needed for sleep Trintellix 20 mg tablet 20 mg PO .q am Qty: 30 3RF Rx Instructions: Take one tablet once daily ondansetron HCl 4 mg tablet 4 mg PO Q8H sucralfate [Carafate] 1 gram tablet 1 g PO QID polyethylene glycol 3350 [Miralax] 17 gram/dose powder 4 g PO DAILY nystatin 100,000 unit/gram powder 1 applic topical BID Qty: 30 0RF Rx Instructions: apply locally to B/L groin folds (DME) Rollator Walker See Rx Instructions .Route .MEDSUPPLY Qty: 1 0RF Rx Instructions: As directed HOME: Length of need 4 months cholecalciferol (vitamin D3) 1,250 mcg (50,000 unit) capsule 1,250 mcg PO .once a week 90 Days Qty: 12 0RF albuterol sulfate 90 mcg/actuation HFA aerosol inhaler See Rx Instructions .ROUTE .COMPLEX Qty: 9 0RF Dose Instruction: INHALE 2 PUFFS BY MOUTH EVERY 6 HOURS NEEDED FOR SHORTNESS OF BREATH OR WHEEZING Rx Instructions: INHALE 2 PUFFS BY MOUTH EVERY 6 HOURS NEEDED FOR SHORTNESS OF BREATH OR WHEEZING acetaminophen 500 mg Tablet 1,000 mg PO Q6H PRN (Reason: Pain) ciprofloxacin HCl 500 mg tablet 500 mg PO BID Qty: 14 0RF promethazine 25 mg tablet 12.5 - 25 mg PO Q6H PRN (Reason: nausea and vomiting) Qty: 10 0RF Rx Instructions: 4 doses during day; last dose no later than 4 hr before bedtime Discharge Orders: Discharge ED (Routine); Ordered 11/18/24 Ordered By: Chivo Deleon Referrals: Dara Tavera FNP [Primary Care Provider, Family Practice] - 1-3 days Patient Instructions: Abdominal Pain (ED), Opioid Safety, Pain Management Print Language: Macedonian Coding Level of Care Code ED Job Foreman for Shellie Guallpa
[2024-11-18 02:35] VITALS: BP 133/73; PULSE 73; RESP 16; O2SAT 97
== END 2024-11-18 02:39 | disposition home or self-care (01) ==
PROVIDERS: Emergency Provider Emergency Medicine; PCP Registered Nurse
DX: R10.9 Unspecified abdominal pain (principal); F17.210 Nicotine dependence, cigarettes, uncomplicated; J44.9 Chronic obstructive pulmonary disease, unspecified
CPT/HCPCS: 36415; 80053; 81001; 83690; 85025; 86140; 96361; 96374; 96375; 99284; J0780; J1171; J7030

== ENCOUNTER 2024-12-15 20:19 | Emergency (ER) | payer OTHER, MEDICAID, SELFPAY ==
--- OUTSIDE RECORDS SUMMARY | 2010-09-24 03:47 | XMS_ITS | Continuity of Care Document ---
Author Organization [facility] Address [address] [id number]-[place] [address] Phone Care Team Providers Care Boxing Instructor Name Role Phone Nathaniel Toussaint DDS, MD [...] Diagnoses Date Provider Providers Copied on Encounter [facility], [id number][place], [address], [place] tel:[phone] Family Medicine F1 No Information Breana Armstrong. [address] [place] [place], [address], [place]. tel:[phone] [facility], [address] [id number] [id number][place], [address], [place] tel:[phone] [facility] Dental examination Breana Armstrong. [address], [place], [address], [place]. tel:[phone] Referring Provider: Nathaniel Soto, [address] [place], [address]. tel:[phone] [facility], [id number] 738394IH-Q[place], [address], [place] tel:[phone] [facility] Dental examination Breana Armstrong. [address] [place], [address], [place]. tel:[phone] Referring Provider: Nathaniel Soto, [address] [place], [address]. tel:[phone] [facility], [id number] 286976[facility], [place], [place], [address], tel:[phone] [facility] Dental examination Breana Armstrong. [address] [place], [address], [place]. tel:[phone] Referring Provider: [place], [address]. tel:[phone] Family History Family Member Type Diagnosis Age At Onset Father Problem (finding) alcoholism Grandparents Problem (finding) depression Father Problem (finding) hypertension Brother Problem (finding) alcoholism Father Problem (finding) asthma Payers Payer name Insurance type Covered libertarian ID rob kitred(s) D Medicaid [id number] Social History Type Description Quantity Date Captured Comments Alcohol Use Details No Caffeine Use Details No Tobacco Use Status Smoking Status No Information Sex Female Chief Complaint And Reason For Visit No Information Reason For Referral Reason For Referral No Information Plan Of Treatment Date Type Action Status 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 Due on due Goal H&P. Due on due Goal PAP. Due on due Goal TD Vaccine. Due on 11 due Goal Breast exam. Due on 011 due Goal Foot Exam. Due on 1 [...]
--- OUTSIDE RECORDS SUMMARY | 2024-12-11 18:40 | XMS_ITS | Encounter Summary ---
Author Organization [facility] Address [address] [place] [address] Care Team Providers Care Red Leader Name Role Phone Sally Dong MD Primary Care Provider [phone] Reason for Visit * Reason Comments Back Pain Encounter Details Date Type Department Care Team (Late st Contact Info) Description 12/11/2024 6:40 PM CDT - 12/11/2024 7:23 PM CDT Emergency [facility] Emergency Medicine [address] [place] [id number] Tommy Matthews MD [address] [place] [address] [place] [phone] Sciatica of right side (Primary Dx) Discharge Disposition: Home or Self Care Social History Tobacco Use Types Packs/Day Years Used Date Smoking Tobacco: Every Day Cigarettes Smokeless Tobacco: Never Alcohol Use Standard Drinks/Week Comments Not Currently 0 (1 standard drink = 0.6 oz pur e alcohol) Feeling Safe Answer Date Recorded Within the last year, have y ou been afraid of your partner or ex-partner? Not asked 05/05/2019 Within the last year, have y ou been humiliated or emotionally abused in other ways by your partner or ex-partner? Not asked Within the last year, have y ou been kicked, hit, slapped, or otherwise physically hurt by your partner or ex-partner? Not asked 05/05/2019 Within the last year, have y ou been raped or forced to have any kind of sexual activity by your partner or ex-partner? Not asked 05/05/2019 Social Connections Answer Date Recorded In a typical week, how many times do you talk on the phone with family, friends, or neighbors? Not asked 05/05/2019 How often do you get together with friends or re latives? Not asked 05/05/2019 How often do you attend lutheran or bahai serv ices? Not asked 05/05/2019 Do you belong to any clubs o r organizations such as lutheran groups, unions, fraternal or athletic groups, or school groups? Not asked 05/05/2019 How often do you attend meet ings of the clubs or organizations you belong to? Not asked 05/05/2019 Are you , , di vorced, , never , or living with a partner? Not asked 05/05/2019 Feeling Safe Answer Date Recorded Are you in a relationship wi th someone who hurts you emotionally and/or physically? No 12/12/2024 Food Insecurity Answer Date Recorded Social/Environmental Concerns No concerns Transportation Needs Answer Date Record ed Social/Environmental Concerns No concerns Housing Stability Answer Date Recorded Social/Environmental Concerns No concerns Utility Needs Answer Date Recorded Social/Environmental Concerns No concerns Comments No Sex and Gender Information Value Date Recorded Sex Assigned at Female 03/25/2024 4:14 PM CDT Legal Sex Female 2:06 AM [employer] Gender Identity Female 03/25/2024 4:14 PM CDT Sexual Orientation Not on file documented as of this encounter Last Filed Vital Signs Vital Sign Reading Time Taken Comments Blood Pressure 120/104 12/11/2024 7:22 PM CDT Pulse 82 12/11/2024 7:22 PM CDT Temperature 36.6 C (97.9 F) 12/11/2024 6:47 PM CDT Respiratory Rate 19 12/11/2024 7:22 PM CDT Oxygen Saturation 98% 12/11/2024 7:22 PM CDT Inhaled Oxygen Concentration - - Weight 74.8 kg (164 lb 12.8 oz) 12/11/2024 6:47 PM CDT Height 157.5 cm (5' 2 ) 12/11/2024 6:47 PM CDT Body Mass Index 30.14 12/11/2024 6:47 PM CDT documented in this encounter Discharge Instructions * Attachments The following attachments cannot be sent through Care Everywhere. * Sciatica (Armenian) documented in this encounter Medications at Time of Discharge methylPREDNISolone (MEDROL DOSPACK) 4 mg Tablets, Dose Pack Take as directed 21 Tablet 5 HYDROcodone-acetam inophen (NORCO) 5-325 mg tabletIndications: Lumbar radiculopathy Take 1-2 Tablets by mouth every 6 hours as needed for Pain. Max Daily Amount: 8 Tablets 30 Tablet 5 naloxone (NARCAN) 4 mg/spray [place], Non-Aerosol EMERGENCY USE ONLY: Administer 1 spray (4 mg) in one nostril one time. May repeat in alternating nostrils every 2-3 min until responsive or EMS arrives. 2 Each 3 5 HYDROcodone-acetam inophen (NORCO) 5-325 mg tabletIndications: Lumbar radiculopathy Take 1-2 Tablets by mouth every 6 hours as needed for Pain. Max Daily Amount: 8 Tablets 4 Tablet 5 diphenoxylate-atro pine 2.5 mg-0.025 mg tablet Take 1 Tablet by mouth 4 times daily as needed for Diarrhea/Loose Stools. 30 Tablet 1 5 promethazine (PHENERGAN) 25 mg tablet Take 25 mg by mouth every 6 hours as needed for Nausea/Emesis. famotidine (PEPCID) 20 mg tablet Take 20 mg by mouth 2 times daily. prochlorperazine (COMPAZINE) 25 mg Suppository Insert 1 Suppository (25 mg) by rectum every 12 hours as needed for Nausea/Emesis. 10 Suppository 1 5 sucralfate (CARAFATE) 1 gram tablet Take 1 Gram by mouth 2 times daily. acetaminophen (TYLENOL) 500 mg tablet Take 1,000 mg by mouth every 6 hours as needed. diphenhydrAMINE (BENADRYL) 25 mg tablet Take 50 mg by mouth every 8 hours as needed for Allergies. lubiprostone (AMITIZA) 8 mcg Capsule Take 24 mcg by mouth 2 times daily with meals. ondansetron (ZOFRAN ODT) 8 mg Tablet, Rapid Dissolve Dissolve 1 tablet on top of tongue then swallow with saliva every 8 hours as needed for nausea or vomiting 20 Tablet 4 QUEtiapine (SEROquel) 25 mg tablet Take 50 mg by mouth 2 times daily. May take 25 mg as needed x 2 doses extra each day if needed vortioxetine (Trintellix) 20 mg tablet Take 5 mg by mouth daily at bedtime. dicyclomine (BENTYL) 10 mg capsule Take 10 mg by mouth 4 times daily. 1-2 QID LAMOTRIGINE ORAL Take by mouth daily. traZODone (DESYREL) 100 mg tablet Take 300 mg by mouth daily at bedtime. albuterol HFA 90 mcg inhaler Use 4 puffs every 4 hours as needed but sooner if necessary. 8.5 Gram 0 0 pantoprazole (PROTONIX) 40 mg Tablet, Delayed Release (E.C.) Take 40 mg by mouth 2 times daily. 8 documented as of this encounter ED Notes * Brittaney Schmitt RN - 12/11/2024 6:54 PM CDT Patient presents to the emergency department via private vehicle for right lower back pain. Patientstates she has been having pain for a while but has been worse since Monday. Patient states the pain is sharp and stabbing, and notes it radiates down her right leg. Patient notes she has been using heat, ice, tylenol, and hemp cream without relief. Vital signs as documented. * Tommy Matthews MD - 12/11/2024 6:23 PM CDT HISTORY OF PRESENT ILLNESS Latesha Wilhelm, a 59 y.o. female presents to the ED with a Chief Complaint of Back Pain Subjective This patient is a 59-year-old white female who presents to the ER complaining of low back pain thatradiates down the right leg. Patient is well-known to me. She does present to the ER frequently with abdominal pain and back pain. No bowel or bladder dysfunction. No fever. No recent injury. REVIEW OF SYSTEMS Review of Systems Constitutional: Negative for activity change, appetite change, chills, diaphoresis, fatigue and fever. HENT: Negative for congestion, dental problem, ear pain, postnasal drip, rhinorrhea, sinus pressure, sore throat, tinnitus and trouble swallowing. Eyes: Negative for photophobia, pain, discharge, redness and visual disturbance. Respiratory: Negative for cough, chest tightness, shortness of breath and wheezing. Cardiovascular: Negative for chest pain, palpitations and leg swelling. Gastrointestinal: Negative for abdominal distention, abdominal pain, blood in stool, constipation, diarrhea, nausea and vomiting. Genitourinary: Negative for decreased urine volume, difficulty urinating, dyspareunia, dysuria, flank pain, frequency, hematuria, menstrual problem, pelvic pain, urgency, vaginal bleeding and vaginaldischarge. Musculoskeletal: Positive for back pain. Negative for arthralgias, gait problem, joint swelling, myalgias, neck pain and neck stiffness. Skin: Negative for color change and rash. Neurological: Negative for dizziness, seizures, speech difficulty, weakness, light-headedness, numbness and headaches. Hematological: Negative for adenopathy. Psychiatric/Behavioral: Negative for agitation, behavioral problems, confusion, dysphoric mood, hallucinations, self-injury, sleep disturbance and suicidal ideas. The patient is not nervous/anxious. All other systems reviewed and are negative. PAST MEDICAL HISTORY REVIEWED MEDICAL: Patient has a past medical history of Acute cystitis, Ankle fracture, left, Anxiety, Arthritis, Asthma, Atrial fibrillation ([facility]), Avascular necrosis ([facility]), Bipolar disorder ([facility]), Bladder stones, Bronchitis, Calculus of kidney, Cannabinoid hyperemesis syndrome, Clostridium difficile enterocolitis, Colitis, Community acquired pneumonia, Congestive heart failure ([facility]) (02/17/2022),COPD (chronic obstructive pulmonary disease) ([facility]), Depression, Diverticulitis, Drug-seeking behavior, Flank pain, Flu, Gastritis, Gastroparesis, GERD (gastroesophageal reflux disease), Hematuria, HTN (hypertension), Hyperlipidemia, Hypotension, IBS (irritable bowel syndrome) (07/21/2020), IBS (irritable bowel syndrome), Influenza, Migraines, MRSA (methicillin resistant staph aureus) culture positive, MRSA (methicillin resistant Staphylococcus aureus), Pneumonia, PTSD (post-traumatic stress disorder) (04/29/2013), Rectal bleeding, Respiratory failure (CMS/HCC), Schizoaffective disorder (CMS/HCC), Seizure disorder (CMS/HCC), Shortness of breath, Somatization disorder, Substance abuse (CMS/HCC), Suicidal ideation, URI (upper respiratory infection), UTI (urinary tract infection), VRE (vancomycin resistant enterococcus) culture positive (10/30/2013), and Weight loss. SURGICAL: Patient has a past surgical history that includes EGD; pr colonoscopy flx dx w/collj spec when pfrmd (N/A, 01/12/2017); hchg removal of picc line; nm pharmacological stress test; pr oral surgery; tonsillectomy; lumbar puncture diagnostic (03/01/2015); colonoscopy; colonoscopy (10/23/2018); lymph node dissection; appendectomy; hysterectomy; cholecystectomy; fracture tx (2009); single tooth extraction (10/2010); bladder suspension (01/11/2012); pr egd transoral biopsy single/multiple (12/22/2011); pregd transoral biopsy single/multiple (08/07/2012); cataract removal (Bilateral); and cataract removal (Bilateral, 09/2023). FAMILY: Patient's family history includes Asthma in her father; Colon Cancer in her maternal aunt; Diabetesin her maternal grandmother; Healthy in her mother; Heart Disease in her father; Hypertension in her father and maternal grandmother; Lung Cancer in her father; Other in her father and maternal aunt;Respiratory Disease in her father. SOCIAL: reports that she has been smoking cigarettes. She has never used smokeless tobacco. She reports that she does not currently use alcohol. She reports that she does not currently use drugs after havingused the following drugs: Marijuana. She reports that she is not currently sexually active. No history on file. Social History Other Topics Concern Not on file ALLERGIES Fentanyl, Tetracycline, Tramadol, Duloxetine, Fluoxetine, Haloperidol, [place], Metoclopramide hcl,Risperidone, Adhesive, Codeine, Gabapentin, Ketorolac tromethamine, Penicillins, Tetracyclines, andZiprasidone hcl HOME MEDICATIONS Discharge Medication List as of 12/11/2024 7:19 PM CONTINUE these medications which have NOT CHANGED Details methylPREDNISolone (MEDROL DOSPACK) 4 mg Tablets, Dose Pack Take as directed, Disp-21 Tablet, R-0 !! HYDROcodone-acetaminophen (NORCO) 5-325 mg tablet Take 1-2 Tablets by mouth every 6 hours as needed for Pain. Max Daily Amount: 8 Tablets, Disp-30 Tablet, R-0 naloxone (NARCAN) 4 mg/spray [place], Non-Aerosol EMERGENCY USE ONLY: Administer 1 spray (4 mg) in one nostril one time. May repeat in alternating nostrils every 2-3 min until responsive or EMS arrives., Disp-2 Each, R-3 !! HYDROcodone-acetaminophen (NORCO) 5-325 mg tablet Take 1-2 Tablets by mouth every 6 hours as needed for Pain. Max Daily Amount: 8 Tablets, Disp-4 Tablet, R-0 diphenoxylate-atropine 2.5 mg-0.025 mg tablet Take 1 Tablet by mouth 4 times daily as needed for Diarrhea/Loose Stools., Disp-30 Tablet, R-1 promethazine (PHENERGAN) 25 mg tablet Take 25 mg by mouth every 6 hours as needed for Nausea/Emesis. famotidine (PEPCID) 20 mg tablet Take 20 mg by mouth 2 times daily. prochlorperazine (COMPAZINE) 25 mg Suppository Insert 1 Suppository (25 mg) by rectum every 12 hours as needed for Nausea/Emesis., Disp-10 Suppository, R-1 sucralfate (CARAFATE) 1 gram tablet Take 1 Gram by mouth 2 times daily. acetaminophen (TYLENOL) 500 mg tablet Take 1,000 mg by mouth every 6 hours as needed. diphenhydrAMINE (BENADRYL) 25 mg tablet Take 50 mg by mouth every 8 hours as needed for Allergies. lubiprostone (AMITIZA) 8 mcg Capsule Take 24 mcg by mouth 2 times daily with meals. ondansetron (ZOFRAN ODT) 8 mg Tablet, Rapid Dissolve Dissolve 1 tablet on top of tongue then swallow with saliva every 8 hours as needed for nausea or vomiting, Disp-20 Tablet, R-0 QUEtiapine (SEROquel) 25 mg tablet Take 50 mg by mouth 2 times daily. May take 25 mg as needed x 2 doses extra each day if needed vortioxetine (Trintellix) 20 mg tablet Take 5 mg by mouth daily at bedtime. dicyclomine (BENTYL) 10 mg capsule Take 10 mg by mouth 4 times daily. 1-2 QID LAMOTRIGINE ORAL Take by mouth daily. traZODone (DESYREL) 100 mg tablet Take 300 mg by mouth daily at bedtime. albuterol HFA 90 mcg inhaler Use 4 puffs every 4 hours as needed but sooner if necessary., Disp-8.5Gram, R-0 pantoprazole (PROTONIX) 40 mg Tablet, Delayed Release (E.C.) Take 40 mg by mouth 2 times daily. !! - Potential duplicate medications found. Please discuss with provider. Objective PHYSICAL EXAM INITIAL VS BP: 125/69 (12/11/241846), Heart Rate: 89 bpm (12/11/241846), Resp: 18 (12/11/241846), Pulse: 82(12/11/241921), Temp: 97.9 ??F (36.6 ??C) (12/11/241846), Temp src: Temporal (12/11/241846), SpO2: 97 % (12/11/241846), Height: 5' 2 (157.5 cm) (12/11/241846), Weight: 74.8 kg (164 lb 12.8 oz) (12/11/241846), BMI (Calculated): (!) 30.15 (12/11/241846) No LMP recorded. Patient has had a hysterectomy. Physical Exam Vitals and nursing note reviewed. Constitutional: General: She is in acute distress (mild). Appearance: She is well-developed. HENT: Head: Normocephalic and atraumatic. Eyes: Conjunctiva/sclera: Conjunctivae normal. Pupils: Pupils are equal, round, and reactive to light. Cardiovascular: Rate and Rhythm: Normal rate and regular rhythm. Heart sounds: Normal heart sounds. Pulmonary: Effort: Pulmonary effort is normal. No respiratory distress. Breath sounds: Normal breath sounds. Abdominal: General: Bowel sounds are normal. Palpations: Abdomen is soft. Tenderness: There is no abdominal tenderness. Musculoskeletal: General: Tenderness present. Normal range of motion. Cervical back: Normal range of motion and neck supple. Comments: Diffuse tenderness lumbar spine. Positive straight leg raise test on the right. Skin: General: Skin is warm and dry. Neurological: Mental Status: She is alert and oriented to person, place, and time. Cranial Nerves: No cranial nerve deficit. Psychiatric: Behavior: Behavior normal. Thought Content: Thought content normal. DIAGNOSTICS LAB: No data to display RADIOLOGY: No orders to display EKG: PROCEDURES Procedures MEDICAL DECISION MAKING AND PLAN OF CARE Medical Decision Making Patient was given injection of morphine for pain in the emergency department. I recommended she follow-up with her primary care provider for ongoing management. She was discharged in stable condition. Risk Prescription drug management. Clinical Scoring & Consults Medications Administered During the ED Stay from 12/11/2024 1823 to 12/11/20242044 Date/Time Order Dose Route Action 12/11/20241910 CDT morphine injection 10 mg 10 mg IM Given 12/11/20241910 CDT ondansetron (ZOFRAN ODT) tablet 4 mg 4 mg Oral Given Discharge Medication List as of 12/11/2024 7:19 PM CONTINUE these medications which have NOT CHANGED Details methylPREDNISolone (MEDROL DOSPACK) 4 mg Tablets, Dose Pack Take as directed, Disp-21 Tablet, R-0 !! HYDROcodone-acetaminophen (NORCO) 5-325 mg tablet Take 1-2 Tablets by mouth every 6 hours as needed for Pain. Max Daily Amount: 8 Tablets, Disp-30 Tablet, R-0 naloxone (NARCAN) 4 mg/spray [place], Non-Aerosol EMERGENCY USE ONLY: Administer 1 spray (4 mg) in one nostril one time. May repeat in alternating nostrils every 2-3 min until responsive or EMS arrives., Disp-2 Each, R-3 !! HYDROcodone-acetaminophen (NORCO) 5-325 mg tablet Take 1-2 Tablets by mouth every 6 hours as needed for Pain. Max Daily Amount: 8 Tablets, Disp-4 Tablet, R-0 diphenoxylate-atropine 2.5 mg-0.025 mg tablet Take 1 Tablet by mouth 4 times daily as needed for Diarrhea/Loose Stools., Disp-30 Tablet, R-1 promethazine (PHENERGAN) 25 mg tablet Take 25 mg by mouth every 6 hours as needed for Nausea/Emesis. famotidine (PEPCID) 20 mg tablet Take 20 mg by mouth 2 times daily. prochlorperazine (COMPAZINE) 25 mg Suppository Insert 1 Suppository (25 mg) by rectum every 12 hours as needed for Nausea/Emesis., Disp-10 Suppository, R-1 sucralfate (CARAFATE) 1 gram tablet Take 1 Gram by mouth 2 times daily. acetaminophen (TYLENOL) 500 mg tablet Take 1,000 mg by mouth every 6 hours as needed. diphenhydrAMINE (BENADRYL) 25 mg tablet Take 50 mg by mouth every 8 hours as needed for Allergies. lubiprostone (AMITIZA) 8 mcg Capsule Take 24 mcg by mouth 2 times daily with meals. ondansetron (ZOFRAN ODT) 8 mg Tablet, Rapid Dissolve Dissolve 1 tablet on top of tongue then swallow with saliva every 8 hours as needed for nausea or vomiting, Disp-20 Tablet, R-0 QUEtiapine (SEROquel) 25 mg tablet Take 50 mg by mouth 2 times daily. May take 25 mg as needed x 2 doses extra each day if needed vortioxetine (Trintellix) 20 mg tablet Take 5 mg by mouth daily at bedtime. dicyclomine (BENTYL) 10 mg capsule Take 10 mg by mouth 4 times daily. 1-2 QID LAMOTRIGINE ORAL Take by mouth daily. traZODone (DESYREL) 100 mg tablet Take 300 mg by mouth daily at bedtime. albuterol HFA 90 mcg inhaler Use 4 puffs every 4 hours as needed but sooner if necessary., Disp-8.5Gram, R-0 pantoprazole (PROTONIX) 40 mg Tablet, Delayed Release (E.C.) Take 40 mg by mouth 2 times daily. !! - Potential duplicate medications found. Please discuss with provider. LAST VS BP: (!) 120/104 (12/11/241921), Heart Rate: 89 bpm (12/11/241846), Resp: 19 (12/11/241921), Pulse: 82 (12/11/241921), Temp: 97.9 ??F (36.6 ??C) (12/11/241846), Temp src: Temporal (12/11/241846), SpO2: 98 % (12/11/241921) CLINICAL IMPRESSION Final diagnoses: [M54.31] Sciatica of right side (Primary) DISPOSITION, EDUCATION AND MEDICATION RECONCILIATION Medications reconciled. See after visit summary for patient education on discharged patients. ED Disposition ED Disposition Discharge Condition Stable User Tommy Matthews MD Date/Time MonDec 11, 2024 6:58 PM Comment -- ATTESTATION STATEMENTS documented in this encounter Plan of Treatment Not on file documented as of this encounter Visit Diagnoses Diagnosis Sciatica of right side- Primary Sciatica documented in this encounter Administered Medications Inactive Administered Medications - up to 3 most recent administrations Medication Order MAR Action Action Date Dose Rate Site morphine injection 10 mg 10 mg, IM, ONE TIME ONLY, 1 dose, On Mon12/11/24 at 1900, Stat Given 12/11/2024 7:11 PM CDT 10 mg [place] id, Left ondansetron (ZOFRAN ODT) tablet 4 mg 4 mg, Oral, ONE TIME ONLY, 1 dose, On Mon12/11/24 at 1900, Routine Given 12/11/2024 7:11 PM CDT 4 mg documented in this encounter Active and Recently Administered Medications Times are shown in CDT. Scheduled Medication Order 12/09/2024 12/10/2024 12/11/2024 morphine injection 10 mg (COMPLETED) 10 mg, IM, ONE TIME ONLY, 1 dose, On Mon12/11/24 at 1900, Stat 191 (Given - Provid er: Selena Cortez RN) ondansetron (ZOFRAN ODT) tablet 4 mg (COMPLETED) 4 mg, Oral, ONE TIME ONLY, 1 dose, On Mon12/11/24 at 1900, Routine 191 (Given - Provid er: Selena Cortez RN) documented in this encounter Additional Health Concerns Assessment Noted Time PHQ-9 Depression Total Score: 3 10/01/19 23 4:46 PM CDT documented as of this encounter Care Teams Red Leader Relationship Specialty Start Date End Date Sally Dong MD [address] [id number] PCP - General Family Practice 04/07/22 documented as of this encounter
--- OUTSIDE RECORDS SUMMARY | 2024-12-12 18:58 | XMS_ITS | Encounter Summary ---
Author Organization [facility] Address [address] [place] [address] Care Team Providers Care Hospice Registered Nurse Name Role Phone Sally Dong MD Primary Care Provider [phone] Reason for Visit * Reason Comments Abdominal Pain Upper bilateral Encounter Details Date Type Department Care Team (Late st Contact Info) Description 12/12/2024 6:58 PM CDT - 12/12/2024 7:58 PM CDT Emergency [facility] Emergency Medicine [address] [place] [address] Sea Leon MD [address] [facility] [address] [place] [address] Generalized abdominal pain (Primary Dx) Discharge Disposition: Home or Self [...] asked 05/05/2019 How often do you attend temple or yarsanism serv ices? Not asked 05/05/2019 Do you belong to any clubs o r organizations such as temple groups, unions, [employer] or athletic groups, or school groups? Not [...] PM CDT Legal Sex Female 2:06 AM [employer]IPE W[employer] Gender Identity Female 03/25/2024 4:14 PM CDT Sexual Orientation Not on file documented as of this encounter Last Filed Vital Signs Vital Sign Reading Time Taken Comments Blood Pressure 117/93 12/12/2024 7:45 PM CDT Pulse 69 12/12/2024 7:45 PM CDT Temperature 36.3 C (97.4 F) 12/12/2024 6:17 PM CDT Respiratory Rate 18 12/12/2024 7:45 PM CDT Oxygen Saturation 96% 12/12/2024 7:45 PM CDT Inhaled Oxygen Concentration - - Weight 75.9 kg (167 lb 6.4 oz) 12/12/2024 6:17 P M CDT Height 157.5 cm (5' 2 ) 12/12/2024 6:17 PM CDT Body Mass Index 30.62 12/12/2024 6:17 PM CDT documented in this encounter Discharge Instructions * Discharge Instructions* Sea Leon MD - 12/12/2024 7:53 PM CDT Take your medicines as prescribed follow-up with your primary care provider as needed return with any new or worsening symptoms * Attachments The following attachments cannot be sent through Care Everywhere. * Abdominal Pain (French) documented in this encounter Medications at Time of Discharge tiZANidine (ZANAFLEX) 4 mg Tablet Take 4 mg by mouth every 6 hours as needed for Spasm. methylPREDNISolone (MEDROL DOSPACK) 4 mg Tablets, Dose Pack Take as directed 21 Tablet 5 HYDROcodone-acetam inophen (NORCO) 5-325 mg tabletIndications: Lumbar radiculopathy Take 1-2 Tablets by mouth every 6 hours as needed for Pain. Max Daily Amount: 8 Tablets 30 Tablet 5 naloxone (NARCAN) 4 mg/spray [place], Non-Aerosol EMERGENCY USE ONLY: Administer 1 spray [...] as of this encounter ED Notes * Meagan James RN - 12/12/2024 6:20 PM CDT Patient arrives by private vehicle. Ambulates well into room. Friend dropped patient off. Patient complains of abdominal pain bilateral upper abdomen starting today. Vomiting x 4 today. Denies fever or urinary complaints. States followed up with PCP for her back pain and was prescribed tizanidine. States that she is not able to do physical therapy here due to PT leaving. * Sea Leon MD - 12/12/2024 5:58 PM CDT HISTORY OF PRESENT ILLNESS Patient is a 59-year-old with complex medical history but comes to the emergency department very frequently for chronic generalized abdominal pain. She has been worked up for this by her primary careprovider as well as has had colonoscopies and seen by GI with unknown etiology. Pain is upper and lower quadrant started again this afternoon after a flareup yesterday try to treated with Compazine and Zofran but could not keep the medicines down states she has had for episodes of vomiting since then. Does not have any fevers diarrhea bilious vomiting or altered mental status states her send symptoms are consistent with previous visits. Generally when I see her I am able to treat her with Compazine and Benadryl and then she can take p.o. challenge and go and she is requesting this again Abdominal Pain PAST MEDICAL HISTORY REVIEWED MEDICAL: Patient has a past medical history of Acute cystitis, Ankle fracture, left, Anxiety, Arthritis, Asthma, Atrial fibrillation ([facility]), Avascular necrosis ([facility]), Bipolar disorder ([facility]), Bladder stones, Bronchitis, Calculus of kidney, Cannabinoid hyperemesis syndrome, Clostridium difficile enterocolitis, Colitis, Community acquired pneumonia, Congestive heart failure ([facility]) (02/17/2022),COPD (chronic obstructive pulmonary disease) ([facility]), Depression, Diverticulitis, Drug-seeking behavior, Flank pain, Flu, Gastritis, Gastroparesis, GERD (gastroesophageal reflux disease), Hematuria, HTN (hypertension), Hyperlipidemia, Hypotension, IBS (irritable bowel syndrome) (07/21/2020), IBS (irritable bowel syndrome), Influenza, Migraines, MRSA (methicillin resistant staph aureus) culture positive, MRSA (methicillin resistant Staphylococcus aureus), Pneumonia, PTSD (post-traumatic stress disorder) (04/29/2013), Rectal bleeding, Respiratory failure ([facility]), Schizoaffective disorder ([facility]), Seizure disorder ([facility]), Shortness of breath, Somatization disorder, Substance abuse ([facility]), Suicidal ideation, URI (upper respiratory infection), UTI [...] removal (Bilateral); and cataract removal (Bilateral, 09/2023). ALLERGIES Fentanyl, Tetracycline, Tramadol, Duloxetine, Fluoxetine, Haloperidol, Nicolaus, Metoclopramide hcl,Risperidone, Adhesive, Codeine, Gabapentin, Ketorolac tromethamine, Penicillins, Tetracyclines, andZiprasidone hcl PHYSICAL EXAM INITIAL VS BP: 112/68 (12/12/241816), Heart Rate: 79 bpm (12/12/241816), Resp: 20 (12/12/241816), Pulse: 69(12/12/241944), Temp: 97.4 ??F (36.3 ??C) (12/12/241816), Temp src: Temporal (12/12/241816), SpO2: 97 % (12/12/241816), Height: 5' 2 (157.5 cm) (12/12/241816), Weight: 75.9 kg (167 lb 6.4 oz) (12/12/241816), BMI (Calculated): (!) 30.6 (12/12/241816) No LMP recorded. Patient has had a hysterectomy. Physical Exam Vitals and nursing note reviewed. Constitutional: Appearance: She is well-developed. HENT: Head: Normocephalic and atraumatic. Eyes: Extraocular Movements: Extraocular movements intact. Cardiovascular: Rate and Rhythm: Normal rate and regular rhythm. Abdominal: General: Abdomen is flat. Bowel sounds are normal. Palpations: Abdomen is soft. There is no shifting dullness. Tenderness: There is generalized abdominal tenderness. Skin: General: Skin is warm and dry. Neurological: Mental Status: She is alert. Psychiatric: Mood and Affect: Mood normal. Behavior: Behavior normal. DIAGNOSTICS LAB: No data to display RADIOLOGY: No orders to display EKG: PROCEDURES Procedures MEDICAL DECISION MAKING AND PLAN OF CARE Medical Decision Making Patient is a 59-year-old here with chronic abdominal pain Patient has had multiple workups is stable does not have a significantly acute abdominal exam and her symptoms are similar to previous episodes. She would rather not have labs but requested to be treated with Compazine and Benadryl which seems to help we will give these and p.o. challenge her Patient requesting to be discharged she states she feels better think this is reasonable but her follow-up with her PCP return with any new or worsening symptoms After speaking with and examining patient, reviewing today's visit, labs, xray and extensive nursesnotes- I feel patients complaints are not acute nor life threatening. The patient's evaluation, exam, findings and plan of care were discussed with the patient here in the emergency department. I have discussed that this focused care is based on an urgent and emergent basis and in no way representscomplete or continued care of their entire health conditions and that follow up care is an important part of the care and plan they have received here in the emergency department. They have voiced understanding and are comfortable with the plan of care. Risk OTC drugs. Prescription drug management. Clinical Scoring & Consults Medications Administered During the ED Stay from 12/12/2024 1759 to 12/12/20242035 Date/Time Order Dose Route Action 12/12/20241916 CDT diphenhydrAMINE (BENADRYL) tablet 25 mg 25 mg Oral Given 12/12/20241916 CDT prochlorperazine (COMPAZINE) injection 10 mg 10 mg IM Given Discharge Medication List as of 12/12/2024 7:54 PM CONTINUE these medications which have NOT CHANGED Details tiZANidine (ZANAFLEX) 4 mg Tablet Take 4 mg by mouth every 6 hours as needed for Spasm. promethazine (PHENERGAN) 25 mg tablet Take 25 [...] 40 mg by mouth 2 times daily. methylPREDNISolone (MEDROL DOSPACK) 4 mg Tablets, Dose Pack Take as directed, Disp-21 Tablet, R-0 !! HYDROcodone-acetaminophen (NORCO) 5-325 mg tablet Take 1-2 Tablets by mouth every 6 hours as needed for Pain. Max Daily Amount: 8 Tablets, Disp-30 Tablet, R-0 naloxone (NARCAN) 4 mg/spray [place], Non-Aerosol EMERGENCY USE ONLY: Administer 1 spray [...] needed for Diarrhea/Loose Stools., Disp-30 Tablet, R-1 !! - Potential duplicate medications found. Please discuss with provider. LAST VS BP: (!) 117/93 (12/12/241944), Heart Rate: 79 bpm (12/12/241816), Resp: 18 (12/12/241944), Pulse: 69 (12/12/241944), Temp: 97.4 ??F (36.3 ??C) (12/12/241816), Temp src: Temporal (12/12/241816),SpO2: 96 % (12/12/241944) CLINICAL IMPRESSION Final diagnoses: [R10.84] Generalized abdominal pain (Primary) DISPOSITION, EDUCATION AND MEDICATION RECONCILIATION Medications reconciled. See after visit summary for patient education on discharged patients. ED Disposition ED Disposition Discharge Condition Stable User Sea Leon MD Date/Time MonDec 12, 2024 7:53 PM Comment -- ATTESTATION STATEMENTS documented in this encounter Plan of Treatment Not on file documented as of this encounter Visit Diagnoses Diagnosis Generalized abdominal pain- Primary Abdominal pain, generalized documented in this encounter Administered Medications Inactive Administered Medications - up to 3 most recent administrations Medication Order MAR Action Action Date Dose Rate Site diphenhydrAMINE (BENADRYL) tablet 25 mg 25 mg, Oral, ONE TIME ONLY, 1 dose, [place] 12/12/24 at 191, Routine Given 12/12/2024 7:17 PM CDT 25 mg prochlorperazine (COMPAZINE) injection 10 mg 10 mg, IM, ONE TIME ONLY, 1 dose, [place] 12/12/24 at 1915, Stat Given 12/12/2024 7:17 PM CDT 10 mg Hip, Right documented in this encounter Active and Recently Administered Medications Times are shown in CDT. Scheduled Medication Order 12/10/2024 12/11/2024 12/12/2024 diphenhydrAMINE (BENADRYL) tablet 25 mg (COMPLETED) 25 mg, Oral, ONE TIME ONLY, 1 dose, [place] 12/12/24 at 191, Routine 1917 (Given - Provid er: Fanny Lancaster RN) prochlorperazine (COMPAZINE) injection 10 mg (COMPLETED) 10 mg, IM, ONE TIME ONLY, 1 dose, [place] 12/12/24 at 191, Stat 1916 (Given - Provid er: Fanny Lancaster RN) documented in this encounter Additional Health Concerns Assessment Noted Time PHQ-9 Depression Total Score: 3 10/01/19 23 4:46 PM CDT documented as of this encounter Care Teams Hospice Registered Nurse Relationship Specialty Start Date End Date Sally Dong MD [address] [id number] PCP - General Family Practice 04/07/22 documented as of this encounter
[2024-12-15 20:20] VITALS: BP 93/77; PULSE 76; RESP 18; TEMP 36.7; O2SAT 97; BMI 29.2
--- OUTSIDE RECORDS SUMMARY | 2024-12-15 20:28 | XMS_ITS | Clinical Summary ---
Author Organization [facility] Address [address] [place] [address] Care Team Providers Care Portable Track Line Marker Name Role Phone Sally Dong MD Primary Care Provider [phone] Allergies Active Allergy Reactions Criticality Noted Date Comments Adhesive Rash Low 02/12/2009 Codeine Nausea and Vomiting Low 02/12/2009 Duloxetine Other (See Comments) 02/24/2015 Fentanyl Hives High 11/07/2019 Fluoxetine Unknown 10/20/2018 Gabapentin Unknown,Hallucination Low 02/12/2009 Haloperidol Unknown 01/04/2022 Tardive dyskinesia Ketorolac Tromethamine Other (See Comments) Low Adverse drug reaction [place] Unknown 02/12/2009 Other reaction(s): shakey Metoclopramide Hcl Unknown 11/22/2022 Worsens Tardive Dyskinesia Penicillins Rash Low 10/21/2011 Risperidone Other (See Comments) 09/23/2015 Unwanted facial movements Tetracycline Hives High 02/12/2009 Tetracyclines Rash Low 02/24/2015 Tramadol Hives,Other (See Comments),Nausea and Vomiting High 09/21/2009 Ziprasidone Hcl Hallucination Low 02/12/2009 Medications albuterol HFA 90 mcg inhaler Use 4 puffs every 4 hours as needed but sooner if necessary. 8.5 Gram 0 020 Active pantoprazole (PROTONIX) 40 mg Tablet, Delayed Release (E.C.) Take 40 mg by mouth 2 times daily. 018 Active traZODone (DESYREL) 100 mg tablet Take 300 mg by mouth daily at bedtime. Active LAMOTRIGINE ORAL Take by mouth daily. Active dicyclomine (BENTYL) 10 mg capsule Take 10 mg by mouth 4 times daily. 1-2 QID Active vortioxetine (Trintellix) 20 mg tablet Take 5 mg by mouth daily at bedtime. Active QUEtiapine (SEROquel) 25 mg tablet Take 50 mg by mouth 2 times daily. May take 25 mg as needed x 2 doses extra each day if needed Active ondansetron (ZOFRAN ODT) 8 mg Tablet, Rapid Dissolve Dissolve 1 tablet on top of tongue then swallow with saliva every 8 hours as needed for nausea or vomiting 20 Tablet 024 Active lubiprostone (AMITIZA) 8 mcg Capsule Take 24 mcg by mouth 2 times daily with meals. Active acetaminophen (TYLENOL) 500 mg tablet Take 1,000 mg by mouth every 6 hours as needed. Active diphenhydrAMINE (BENADRYL) 25 mg tablet Take 50 mg by mouth every 8 hours as needed for Allergies. Active sucralfate (CARAFATE) 1 gram tablet Take 1 Gram by mouth 2 times daily. Active prochlorperazine (COMPAZINE) 25 mg Suppository Insert 1 Suppository (25 mg) by rectum every 12 hours as needed for Nausea/Emesis. 10 Suppository 1 025 Active famotidine (PEPCID) 20 mg tablet Take 20 mg by mouth 2 times daily. Active promethazine (PHENERGAN) 25 mg tablet Take 25 mg by mouth every 6 hours as needed for Nausea/Emesis. Active diphenoxylate-at ropine 2.5 mg-0.025 mg tablet Take 1 Tablet by mouth 4 times daily as needed for Diarrhea/Loose Stools. 30 Tablet 1 025 Active methylPREDNISolo ne (MEDROL DOSPACK) 4 mg Tablets, Dose Pack Take as directed 21 Tablet 025 Active HYDROcodone-acet aminophen (NORCO) 5-325 mg tabletIndication s:Lumbar radiculopathy Take 1-2 Tablets by mouth every 6 hours as needed for Pain. Max Daily Amount: 8 Tablets 30 Tablet 025 Active naloxone (NARCAN) 4 mg/spray [place], Non-Aerosol EMERGENCY USE ONLY: Administer 1 spray (4 mg) in one nostril one time. May repeat in alternating nostrils every 2-3 min until responsive or EMS arrives. 2 Each 3 025 Active HYDROcodone-acet aminophen (NORCO) 5-325 mg tabletIndication s:Lumbar radiculopathy Take 1-2 Tablets by mouth every 6 hours as needed for Pain. Max Daily Amount: 8 Tablets 4 Tablet 025 Active tiZANidine (ZANAFLEX) 4 mg Tablet Take 4 mg by mouth every 6 hours as needed for Spasm. Active baclofen (LIORESAL) 5 mg tablet Take 1 Tablet (5 mg) by mouth 3 times daily for 10 days. 30 Tablet 025 2024 HYDROcodone-acet aminophen (NORCO) 5-325 mg tabletIndication s:Lumbar radiculopathy Take 1-2 Tablets by mouth every 6 hours as needed for Pain. Max Daily Amount: 8 Tablets 4 Tablet 025 2024 Discontinued Active Problems Problem Noted Date Diagnosed Date Wheezing on expiration 11/14/2024 Infected sebaceous cyst of skin 08/07/2024 History of oral surgery 03/18/2024 Acute oral pain 03/18/2024 Ileus 12/16/2023 Chronic generalized abdominal pain 07/05/2023 Gastroparesis 06/05/2023 Acute infective gastroenteritis 05/24/2023 Generalized abdominal pain 04/12/2023 Pneumonitis 11/22/2022 Allergic reaction 04/07/2022 Depression with suicidal ideation 03/10/2022 UTI (urinary tract infection) 10/28/2021 Borderline personality disorder 10/26/2021 Adjustment disorder with mixed anxiety and depre ssed mood 10/26/2021 Severe episode of recurrent major depressive disorder, with psychotic features 10/26/2021 Acute on chronic systolic heart failure 04/27/20 Erosive esophagitis 04/26/2020 Bandemia 04/26/2020 Schizoaffective disorder with good prognostic fe atures 11/27/2019 History of atrial fibrillation 06/13/2019 IBS (irritable bowel syndrome) 06/13/2019 History of seizure disorder 06/13/2019 Elevated C-reactive protein (CRP) 06/13/2019 HTN (hypertension), benign 06/13/2019 PTSD (post-traumatic stress disorder) 06/13/2019 HLD (hyperlipidemia) 06/13/2019 Drug-seeking behavior 06/13/2019 Lactic acidosis 05/19/2019 ANEUDY (acute kidney injury) 05/19/2019 Interstitial edema 02/28/2019 Community acquired pneumonia 06/17/2018 Overactive bladder 06/17/2018 Tobacco abuse 07/23/2017 Cigarette dependence 03/23/2015 Intractable vomiting with nausea 12/10/2014 COPD (chronic obstructive pulmonary disease) Bipolar affective disorder 04/10/2014 COPD with exacerbation 10/07/2013 Anxiety 10/07/2013 Depression 10/07/2013 GERD (gastroesophageal reflux disease) 1 Leukocytosis (leucocytosis) 02/12/2009 Resolved Problems Problem Noted Date Diagnosed Date Resolved Date Hematuria 06/13/2019 09/30/2022 Pyelonephritis 05/21/2019 09/30/2022 Hypokalemia 05/19/2019 09/30/2022 Sepsis 06/17/2018 09/08/2018 Chronic respiratory failure 06/17/2018 09/08/2018 Rash 06/17/2018 09/08/2018 Overview (10/14/2020): Noted below skin folds of breasts-appear fungal given appearance/location. Nystatin powder ordered. Hypotension 06/17/2018 09/08/2018 Pneumonia of right lower lob e due to infectious organism 02/07/2018 09/08/2018 Probable sepsis 02/07/2018 09/08/2018 HCAP (healthcare-associated pneumonia) 07/26/2017 02/07/2018 Dyspnea on exertion 07/26/2017 09/09/19 19 Increased anion gap metabolic acidosis 07/24/2017 02/07/2018 Severe sepsis 07/24/2017 02/07/2018 Vancomycin resistant Enterococcus 07/23/2017 07/23/2017 Overview (10/14/2020): Urine Hyperglycemia, drug-induced 07/23/2017 09/08/2018 Overview (10/14/2020): Steroids, mild. COPD with acute lower respiratory infection 07/22/2017 02/07/2018 Pneumonia, organism unspecified(486) 03/06/2015 02/07/2018 Chronic headache disorder 03/06/2015 Lymphocytosis 03/06/2015 09/08/2018 Hyponatremia 03/06/2015 03/07/2015 BRBPR (bright red blood per rectum) 12/10/2014 07/23/2017 High risk for readmission 12/10/2014 Flank pain 12/10/2014 09/30/2022 Influenza A 04/07/2014 12/10/2014 Hypoxia 04/07/2014 12/10/2014 Acute respiratory failure 04/07/2014 VRE (vancomycin resistant en terococcus) culture positive 10/30/2013 11/13/2013 Acute bronchitis with bronchospasm 10/07/2013 04/06/2014 Overview (10/14/2020): Possible pneumonia Acute respiratory failure with hypoxia 10/23/2012 09/08/2018 Dyspepsia and other specifie d disorders of function of stomach 12/20/2011 04/06/2014 Dysphagia 11/05/2010 07/23/2017 Abdominal pain, epigastric 10/18/2010 0 11/13/2013 Dysphagia, unspecified(787.20) 10/18/2010 04/06/2014 Polypharmacy 08/10/2009 09/08/2018 Hidradenitis 08/10/2009 11/13/2013 Hematemesis/vomiting blood 07/07/2009 0 10/26/2012 Hematochezia 07/07/2009 10/26/2012 Personal history of MRSA (nj thicillin resistant Staphylococcus aureus) 06/27/2009 018 Overview (10/14/2020): Under the arm abscess ~ 2015 Fever and chills 02/12/2009 10/26/2012 Hypoxemia 02/12/2009 04/06/2014 Encounters Date Type Department Care Team Description 12/12/2024 6:58 PM CDT - 12/12/2024 7:58 PM CDT [facility] Emergency Medicine [address] [place] [address] Sea Leon MD Generalized abdominal pain (Primary Dx) Discharge Disposition: Home or Self Care 12/11/2024 6:40 PM CDT - 12/11/2024 7:23 PM CDT [facility] Emergency Medicine [address] [facility] [address] [place] [address] Tommy Matthews MD Sciatica of right side (Primary Dx) Discharge Disposition: Home or Self Care 12/06/2024 7:06 PM CDT - 12/06/2024 7:56 PM CDT [facility] Emergency [facility] [address] [facility] [address] [place] [address] Mohinder Dumont DO Chronic right-sided back pain, unspecified back location (Primary Dx) Discharge Disposition: Home or Self Care 12/06/2024 Travel 12/04/2024 8:36 PM CDT - 12/04/2024 10:43 PM CDT [facility] Emergency [facility] [address] [facility] [address] [place] [address] Mohinder Dumont DO Contusion of right hip, initial encounter (Primary Dx) Discharge Disposition: Home or Self Care 12/04/2024 Travel 12/03/2024 Orders Only [facility] Admitting [address] [facility] [address] [place] [address] Dara Tavera, GAS APPLIANCE MECHANIC Low back pain with bilateral sciatica, unspecified back pain laterality, unspecified chronicity (Primary Dx) 11/30/2024 9:21 PM CDT - 11/30/2024 11:07 PM CDT [facility] Emergency Medicine [address] [place] [address] Sea Leon MD Generalized abdominal pain (Primary Dx) Discharge Disposition: Home or Self Care 11/30/2024 Travel 11/22/2024 6:27 PM CDT - 11/22/2024 8:53 PM CDT [facility] Emergency Medicine [address] [facility] [address] [place] [address] Tommy Matthews MD Lumbar radiculopathy (Primary Dx) Discharge Disposition: Home or Self Care 11/21/2024 3:14 PM CDT - 11/21/2024 11:59 PM CDT Hospital Encounter [facility] View [address] [facility] [address] [place] [address] Dara Tavera FNP Discharge Disposition: Home or Self Care 11/17/2024 12:15 AM CDT - 11/17/2024 11:59 PM CDT Hospital Encounter [facility] [address] [facility] [address] [place] [address] Ambulance, Fln [facility] Discharge Disposition: [facility] 11/14/2024 6:04 PM CDT - 11/14/2024 7:31 PM CDT [facility] Medicine [address] [facility] [address] [place] [address] Corinna Sarabia MD Starnes, Sea Aragon MD Chronic generalized abdominal pain (Primary Dx); Wheezing on expiration; Nausea Discharge Disposition: Home or Self Care 11/08/2024 7:49 PM CDT - 11/08/2024 10:30 PM CDT [facility] Medicine [address] [facility] [address] [place] [address] Tommy Matthews MD Chest pain, unspecified type (Primary Dx); Chronic diarrhea Discharge Disposition: Home or Self Care 11/08/2024 6:00 PM CDT - 11/08/2024 11:59 PM CDT Hospital Encounter [facility] [address] [place] [address] Ambulance, [facility] Discharge Disposition: [facility] 11/08/2024 Travel 11/03/2024 11:40 AM CDT - 11/03/2024 11:59 PM CDT Hospital Encounter [facility] [address] [facility] [address] [place] [address] Ambulance, [facility] Discharge Disposition: [facility] 10/27/2024 5:50 AM CDT - 10/27/2024 11:59 PM CDT Hospital Encounter [facility] [address] [place] [address] Ambulance, [facility] Discharge Disposition: [facility] 10/25/2024 9:06 PM CDT - 10/25/2024 9:52 PM CDT [facility] [address] [place] [address] Tommy Matthews MD Nausea and vomiting, unspecified vomiting type (Primary Dx); Chronic abdominal pain Discharge Disposition: Home or Self Care 10/20/2024 8:20 AM CDT - 10/20/2024 11:59 PM CDT Hospital Encounter [facility] [address] [place] [address] Ambulance, [facility] Discharge Disposition: Home or Self Care 10/19/2024 5:49 PM CDT - 10/19/2024 6:34 PM CDT [address] [place] [address] Corinna Sarabia MD Irritable bowel syndrome with both constipation and diarrhea (Primary Dx) Discharge Disposition: Home or Self Care 10/19/2024 Travel 10/15/2024 Results Follow-Up [address] [place] [address] Brittaney Schmitt RN URINE CULTURE 10/11/2024 4:41 PM CDT - 10/11/2024 9:28 PM CDT [facility] [address] [place] [address] Marisela Kemp MD Hennon, Marcus, DO Left lower quadrant abdominal pain (Primary Dx) Discharge Disposition: Home or Self Care 10/11/2024 Travel 09/29/2024 12:15 AM CDT - 09/29/2024 11:59 PM CDT Hospital Encounter [facility] [address] [place] [address] Ambulance, [facility] View Discharge Disposition: [facility] 09/21/2024 11:59 AM CDT - 09/21/2024 1:47 PM CDT [facility] Emergency Medicine [address] [place] [address] Corinna Sarabia MD Irritable bowel syndrome with both constipation and diarrhea (Primary Dx) Discharge Disposition: Home or Self Care 09/21/2024 - 09/21/2024 11:59 PM CDT Hospital Encounter [facility] [place] [address] [place] [phone] Ambulance, [facility] Discharge Disposition: [facility] 09/21/2024 Travel from Last 3 Months Immunizations Immunization Administration Dates Next Due (PNEUMOVAX 23)(50 YRS UP) PN EUMOCOCCAL POLYSACCHARIDE (PPV23) 0.5 ML, IM 06/22/2007 Hepatitis B Vaccine 12/29/1997 Influenza Seasonal Unspecifi ed Formulation IM 02/19/2014,02/17/2013,03/07/2012,06/22 Pneumococcal conjugate, unsp ecified formulation 03/07/2012 Family History Medical History Relation Name Comments Asthma Father Heart Disease Father Hypertension Father Lung Cancer Father Other Father Respiratory Disease Father Other Maternal Aunt 1 Colon Cancer Maternal Aunt 2 Diabetes Maternal Grandmother Hypertension Maternal Grandmother Healthy Mother Relation Name Status Comments Brother Father Alive Maternal Aunt 1 mental illne ss Maternal Aunt 2 Maternal Grandmother Mother Alive Social History Tobacco Use Types Packs/Day Years Used Date Smoking Tobacco: Every Day Cigarettes Smokeless Tobacco: Never Tobacco Cessation:Ready to Q uit: Not Asked; Counseling Given: Not Answered Alcohol Use Standard Drinks/Week Comments Not Currently [...] How often do you attend temple or restorationism serv ices? 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 Gender Identity Female 03/25/2024 4:14 PM CDT Sexual Orientation Not on file Last Filed Vital Signs Vital Sign Reading [...] Mass Index 30.62 12/12/2024 6:17 PM CDT Plan of Treatment Health Maintenance Due Date Last Done Comments DTAP/TDAP/TD VACCINES (1 - Tdap) 11/10/1986 HEPATITIS B VACCINES (1 of 3 - 19+ 3-dose series) 11/10/1986 12/29/1997 BREAST CANCER SCREENING 2007 FIT-DNA Q 3 years 11/10/2012 FIT/FOBT Q 1 year 11/10/2012 Flex Sig/CT Colonography Q 5 years 11/10/2012 ZOSTER VACCINE (1 of 2) 11/10/2017 Pre-Diabetes and Diabetes Screening 06/17/2021 06/17/2018 COLORECTAL SCREENING 01/12/2022 01/12/2017 Colorectal Cancer Screening 01/12/2022 INFLUENZA VACCINE (#1) 2024 4, 02/17/2013, 03/07/2012, Additional history exists COVID-19 Vaccine Completed 05/08/2024, 09/24/2020 Procedures Procedure Name Priority Date/Time Associated Diagnosis Comments XR HIP 2 OR 3 VIEWS RT Stat 12/04/2024 9:53 PM CDT XR LUMBAR SPINE 2 OR 3 VW Routine 11/21/2024 3:20 PM CDT Acute back pain with sciatica, unspecified laterality TROPONIN 2 HR, 5TH GEN Timed Study 11/08/2024 9:51 PM CDT XR CHEST PA OR AP 1 VW Stat 11/08/2024 8:16 PM CDT BRAIN NATRIURETIC PEPTIDE, BNP OR PROBNP Stat 11/08/2024 7:58 PM CDT EXTRA TUBE (BLUE) Stat 11/08/2024 7:5 8 PM CDT EXTRA TUBE Stat 11/08/2024 7:58 PM CDT COMPREHENSIVE METABOLIC PANEL Stat 11/08/2024 7:58 PM CDT CBC WITH DIFFERENTIAL Stat 11/08/2024 7:58 PM CDT TROPONIN BASELINE, 5TH GEN Stat 11/08/2024 7:58 PM CDT URINALYSIS MICROSCOPY ONLY Stat 10/11/2024 8:45 PM CDT URINALYSIS WITH REFLEX CULTURE Stat 10/11/2024 8:45 PM CDT URINE CULTURE Stat 10/11/2024 8:45 PM CDT CBC WITH DIFFERENTIAL Stat 10/11/2024 7:20 PM CDT LIPASE Stat 10/11/2024 6:55 PM CDT COMPREHENSIVE METABOLIC PANEL Stat 10/11/2024 6:55 PM CDT XR ABDOMEN 1 VW Stat 09/21/2024 1:09 PM CDT HEMOGLOBIN A1C Routine 06/17/2018 7:12 AM LATHE MACHINIST from Last 3 Months or Most Recently Relevant to Health Maintenance Results * XR HIP 2 OR 3 VIEWS RT (12/04/2024 9:53 PM CDT) Anatomical Region Laterality Modality Lower Extremity Right Computed Radiogr aphy 12/04/2024 9:53 PM CDT Impressions 12/04/2024 10:02 PM CDT IMPRESSION: Please see below. Exam: XR HIP 2 OR 3 VIEWS RT Date/Time of Exam: 12/04/2024 9:53 PM Reason For Exam: Injury. Diagnosis: See Reason for Exam. Findings: Comparison from 05/10/2024. No fractures are noted. There is no dislocation. No periosteal reaction is noted. No lytic, blastic or destructive lesion is appreciated. There is minimal osteoarthritic change of the right hip. There are postsurgical changes most consistent with mesh over the left hemipelvis. IMPRESSION: No acute radiographic abnormality. Narrative Procedure Note Shanda Thibodeaux MD - 12/04/2024 IMPRESSION: Please see below. Exam: XR HIP 2 OR 3 VIEWS RT Date/Time of Exam: 12/04/2024 9:53 PM Reason For Exam: Injury. Diagnosis: See Reason for Exam. Findings: Comparison from 05/10/2024. No fractures are noted. There is no dislocation. No periosteal reaction is noted. No lytic, blastic or destructive lesion is appreciated. There is minimal osteoarthritic change of the right hip. There are postsurgical changes most consistent with mesh over the left hemipelvis. IMPRESSION: No acute radiographic abnormality. Mohinder Dumont DO DIAGNOSTIC IMAGING ORDERA BLES Final Result * XR LUMBAR SPINE 2 OR 3 VW (11/21/2024 3:20 PM CDT) Anatomical Region Laterality Modality Spine Computed Radiogr aphy 11/21/2024 3:20 PM CDT Impressions 11/22/2024 7:41 PM CDT IMPRESSION: Please see below. Exam: XR LUMBAR SPINE 2 OR 3 VW Date/Time of Exam: 11/21/2024 3:20 PM REASON FOR EXAM: See Diagnosis. DIAGNOSIS: Acute back pain with sciatica, unspecified laterality. 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 There is intervertebral disc space narrowing at the thoracolumbar junction with endplate osteophytosis throughout the thoracolumbar spine. The facet arthropathy is greatest in the lower lumbar spine from L4-L5 to L6 S1. IMPRESSION: Spondylosis deforms of the thoracolumbar spine, similar to the prior examination. Narrative Procedure Note Michael Cole MD - 11/22/2024 IMPRESSION: Please see below. Exam: XR LUMBAR SPINE 2 OR 3 VW Date/Time of Exam: 11/21/2024 3:20 PM REASON FOR EXAM: See Diagnosis. DIAGNOSIS: Acute back pain with sciatica, unspecified laterality. 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 There is intervertebral disc space narrowing at the thoracolumbar junction with endplate osteophytosis throughout the thoracolumbar spine. The facet arthropathy is greatest in the lower lumbar spine from L4-L5 to L6 S1. IMPRESSION: Spondylosis deforms of the thoracolumbar spine, similar to the prior examination. Dara Fragariott GAS APPLIANCE MECHANIC DIAGNOSTIC IMAGING ORDERABL ES Final Result * TROPONIN 2 HR, 5TH GEN (11/08/2024 9:51 PM CDT) TROPONIN T, 2 HR 5TH GEN <6 <=10 ng/L 11/08/2024 10:14 PM CDT [facility] Blood BLOOD SPECIMEN / Unknown Collection / Unknown 11/08/2024 9:51 PM CDT 11/08/2024 9:53 PM CDT Narrative [facility] - 11/08/2024 10:14 PM CDT Troponin Undetectable Unable to calculate delta. us Tommy Matthews MD CHEMISTRY ORDERABLES Fin al Result [facility] CLIA # [id number] [address] [place] [address] * XR CHEST PA OR AP 1 VW (11/08/2024 8:16 PM CDT) Anatomical Region Laterality Modality Chest Computed Radiogr aphy 11/08/2024 8:16 PM CDT Impressions 11/08/2024 8:23 PM CDT IMPRESSION: Mild vascular congestion. Narrative 11/08/2024 8:23 PM CDT XR CHEST PA OR AP 1 VW Reason For Exam: Chest Pain. Diagnosis: See Reason for Exam. COMPARISON: 10/07/2023 FINDINGS: Mild central vascular congestion. Cardiomediastinal silhouette is within normal limits. No focal consolidation, large pleural effusion, or pneumothorax is seen. No acute osseous abnormality is appreciated. Procedure Note Morgan Layne MD - 11/08/2024 XR CHEST PA OR AP 1 VW Reason For Exam: Chest Pain. Diagnosis: See Reason for Exam. COMPARISON: 10/07/2023 FINDINGS: Mild central vascular congestion. Cardiomediastinal silhouette is within normal limits. No focal consolidation, large pleural effusion, or pneumothorax is seen. No acute osseous abnormality is appreciated. IMPRESSION: Mild vascular congestion. us Tommy Matthews MD DIAGNOSTIC IMAGING ORDER KAYLEE Final Result * EXTRA TUBE (BLUE) (11/08/2024 7:58 PM CDT) Blood BLOOD SPECIMEN / Unknown Collection / Unknown 11/08/2024 7:58 PM CDT 11/08/2024 8:05 PM CDT us Tommy Matthews MD HEMATOLOGY ORDERABLES Fi nal Result Performing Organization Address [facility]/ZIP Co de Phone Number [facility] CLIA # [id number] [address] [place] [phone] * TROPONIN BASELINE, 5TH GEN (11/08/2024 7:58 PM CDT) TROPONIN T, BASELINE 5TH GEN <6 <=10 ng/L 11/08/2024 8:24 PM CDT [facility] Blood BLOOD SPECIMEN / Unknown Collection / Unknown 11/08/2024 7:58 PM CDT 11/08/2024 8:05 PM CDT Narrative [facility] - 11/08/2024 8:24 PM CDT Troponin Undetectable Tommy Matthews MD CHEMISTRY ORDERABLES Fin al Result Performing Organization Address City/[facility]/ZIP Co de Phone Number [facility] CLIA # [id number] [address] [place] [phone] * (ABNORMAL) CBC WITH DIFFERENTIAL (11/08/2024 7:58 PM CDT) Only the most recent of2 resultswithin the time period is included. WBC 10.4(H) 4.0 - 10.0 K/uL 11/08/2024 8:[facility] RBC 4.06 3.93 - 5.22 M/uL 11/08/2024 8:08 PM [facility] HEMOGLOBIN 13.3 11.2 - 15.7 g/dL 11/08/2024 8:08 PM [facility] HEMATOCRIT 38.8 34.1 - 44.9 % 11/08/2024 8:08 PM [facility] MCV 95.6(H) 79.4 - 94.8 fL 11/08/2024 8:08 PM [facility] MCH 32.8(H) 25.6 - 32.2 pg 11/08/2024 8:08 PM [facility] MCHC 34.3 32.2 - 35.5 g/dL 11/08/2024 8:08 PM [facility] RDW 14.6(H) 11.0 - 14.5 % 11/08/2024 8:08 PM [facility] RDW-STDEV 51.7 36.9 - 56.9 fL 11/08/2024 8:08 PM [facility] PLATELETS 257 163 - 337 K/uL 11/08/2024 8:08 PM [facility] MPV 9.6(L) 10.0 - 14.8 fL 11/08/2024 8:08 PM [facility] NEUTROPHILS 61 34 - 71 % 11/08/2024 8:08 PM [facility] LYMPHOCYTES 26 19 - 52 % 11/08/2024 8:08 PM [facility] MONOCYTES 8 5 - 13 % 11/08/2024 8:08 PM [facility] EOSINOPHILS 3 1 - 6 % 11/08/2024 8:08 PM [facility] BASOPHILS 1 0 - 1 % 11/08/2024 8:08 PM [facility] IMMATURE GRANULOCYTES 1 % 11/08/2024 8:08 PM [facility] NEUTROPHIL ABSOLUTE 6.37(H) 1.56 - 6.13 K/uL 11/08/2024 8:08 PM [facility] [facility] LYMPHOCYTE ABSOLUTE 2.65 1.20 - 3.40 K/uL 11/08/2024 8:08 PM CDT [facility] MONOCYTE ABSOLUTE 0.83(H) 0.24 - 0.36 K/uL 11/08/2024 8:08 PM CDT [facility] EOSINOPHIL ABSOLUTE 0.29 0.04 - 0.36 K/uL 11/08/2024 8:08 PM CDT [facility] BASOPHILS ABSOLUTE 0.10(H) 0.01 - 0.08 K/uL 11/08/2024 8:08 PM CDT [facility] IMMATURE GRANULOCYTES ABSOLUTE 0.15 K/uL 11/08/2024 8:08 PM CDT [facility] Blood BLOOD SPECIMEN / Unknown Collection / Unknown 11/08/2024 7:58 PM CDT 11/08/2024 8:05 PM CDT Tommy Matthews MD HEMATOLOGY ORDERABLES nal Result [facility] CLIA # [id number] [address] [place] [address] [id number] * (ABNORMAL) BRAIN NATRIURETIC PEPTIDE, BNP OR PROBNP (11/08/2024 7:58 PM CDT) PROBNP, N TERMINAL 229(H) 0 - 125 pg/mL 11/08/2024 9:05 PM CDT [facility] Comment: INTERPRETIVE COMMENT based on diagnosis: Diagnostic NT pro-BNP cutoffs for Heart Failure in the absence of renal failure is suggested for the following ranges <75 years: <125 pg/mL >=75 years: <450 pg/mL Exclusionary rule out cut-point for Acute Decompensated Heart Failure(ADHF) All ages: <300 pg/mL Diagnostic NT pro-BNP cutoffs for Acute Decompensated Heart Failure(ADHF) in the absence of renal failure is suggested for the following ages <50 years: > 450 pg/mL 50-75 years: > 900 pg/mL >75 years: >1800 pg/mL Blood BLOOD SPECIMEN / Unknown Collection / Unknown 11/08/2024 7:58 PM CDT 11/08/2024 8:05 PM CDT us Tommy Matthews MD CHEMISTRY ORDERABLES Fin al Result [facility] CLIA # [id number] [address] [place] [address] 65548 * (ABNORMAL) COMPREHENSIVE METABOLIC PANEL (11/08/2024 7:58 PM CDT) Only the most recent of2 resultswithin the time period is included. SODIUM 140 136 - 145 mmol/L 11/08/2024 8:24 PM [facility] POTASSIUM 3.9 3.5 - 5.1 mmol/L 11/08/2024 8:24 PM [facility] CHLORIDE 106 98 - 107 mmol/L 11/08/2024 8:24 PM [facility] CO2 23 22 - 29 mmol/L 11/08/2024 8:24 PM [facility] CALCIUM 9.6 8.6 - 10.0 mg/dL 11/08/2024 8:24 PM [facility] BUN 13 6 - 20 mg/dL 11/08/2024 8:24 PM [facility] CREATININE 0.95 0.51 - 0.95 mg/dL 11/08/2024 8:24 PM [facility] GLUCOSE 92 74 - 99 mg/dL 11/08/2024 8:24 PM [facility] TOTAL PROTEIN 7.0 6.6 - 8.7 g/dL 11/08/2024 8:24 PM [facility] ALBUMIN 4.2 3.5 - 5.2 g/dL 11/08/2024 8:24 PM [facility] BILIRUBIN TOTAL 0.2 0.0 - 1.2 mg/dL 11/08/2024 8:24 PM [facility] ALKALINE PHOSPHATASE 107(H) 35 - 104 U/L 11/08/2024 8:24 PM [facility] AST 27 0 - 35 U/L 11/08/2024 8:24 PM CDT [facility] ALT 30 0 - 35 U/L 11/08/2024 8:24 PM [facility] GFR >60 >=60 mL/min/1.7 3 sq meter 11/08/2024 8:24 PM [facility] Comment:eGFR calculated with 2020 CKD-EPI equation. Vegetarian diet, extremely high or low muscle mass, and may affect results. Cystatin C with Glomerular Filtration Rate is a suitable alternative for these patients. ANION GAP 11 5 - 20 mmol/L 11/08/2024 8:24 PM [facility] Blood BLOOD SPECIMEN / Unknown Collection / Unknown 11/08/2024 7:58 PM CDT 11/08/2024 8:05 PM CDT us Tommy Matthews MD CHEMISTRY ORDERABLES Fin al Result [facility] CLIA # [id number] [address] [place] [address] [id number] * (ABNORMAL) URINALYSIS WITH REFLEX CULTURE (10/11/2024 8:45 PM CDT) COLOR UA Yellow Pale to Dark Yellow 10/11/2024 8:57 PM [facility] CLARITY UA Clear Clear 10/11/2024 8:57 PM [facility] SPECIFIC GRAVITY UA 1.010 1.003 - 1.035 10/11/2024 8:57 PM [facility] PH UA 6.5 5.0 - 8.0 10/11/2024 8:57 PM [facility] LEUKOCYTE ESTERASE UA 1+(A) Negative 10/11/2024 8:57 PM [facility] NITRITE UA Negative Negative 10/11/2024 8:57 PM [facility] PROTEIN UA Negative Negative 10/11/2024 8:57 PM T [facility] GLUCOSE UA Negative Negative 10/11/2024 8:57 PM CDT [facility] KETONES UA Negative Negative 10/11/2024 8:57 PM CDT [facility] UROBILINOGEN UA 0.2 <2.0 mg/dL 8:57 PM CDT [facility] BILIRUBIN UA Negative Negative 10/11/2024 8:57 PM CDT [facility] BLOOD UA Negative Negative 10/11/2024 8:57 PM CDT [facility] Urine URINE SPECIMEN OBTAINED BY CLEAN CATCH PROCEDURE / Unknown Collection / Unknown 10/11/2024 8:45 PM CDT 10/11/2024 8:48 PM CDT Narrative [facility] - 10/11/2024 8:57 PM CDT Based on results, a urine culture has been reflexed. us Marisela Kemp MD URINE ORDERABLES Final Resul t Performing Organization Address City/[facility]/ZIP Co de Phone Number [facility] CLIA # [id number] [address] [place] [address] [phone] * (ABNORMAL) URINALYSIS MICROSCOPY ONLY (10/11/2024 8:45 PM CDT) WBC UA 3-5(A) 0 - 2 /hpf 10/11/2024 8:57 PM CDT [facility] RBC UA 0-2 0 - 2 /hpf 10/11/2024 8:57 PM CDT [facility] BACTERIA UA 1+(A) Negative /hpf 10/11/2024 8:57 PM CDT [facility] EPITHELIAL CELLS, URINE 6-10(A) 0 - 5 /hpf 10/11/2024 8:57 PM CDT [facility] Urine URINE SPECIMEN OBTAINED BY CLEAN CATCH PROCEDURE / Unknown Collection / Unknown 10/11/2024 8:45 PM CDT 10/11/2024 8:48 PM CDT us Marisela Kemp MD URINE ORDERABLES Final Resul t [facility] CLIA # [id number] [address] [place] [address] [phone] * URINE CULTURE (10/11/2024 8:45 PM CDT) CULTURE Polymicrobial growth consistent with normal urethral tonia and/or colonizing bacteria 10/13/2024 11:10 AM CDT [facility] Urine URINE SPECIMEN OBTAINED BY CLEAN CATCH PROCEDURE / Unknown Collection / Unknown 10/11/2024 8:45 PM CDT 10/11/2024 8:50 PM CDT Marisela Kemp MD MICROBIOLOGY - GENERAL ORDER KAYLEE Final Result Performing Organization Address [facility] Co de Phone Number [facility] CLIA # [id number] [address] [place] [address] [place] [address] * LIPASE (10/11/2024 6:55 PM CDT) LIPASE 20 13 - 60 U/L 10/11/2024 7:24 PM CDT [facility] Blood BLOOD SPECIMEN / Unknown Collection / Unknown 10/11/2024 6:55 PM CDT 10/11/2024 7:04 PM CDT Marisela Kemp MD CHEMISTRY ORDERABLES Final R esult [facility] CLIA # [id number] [address] [place] [address] [phone] * XR ABDOMEN 1 VW (09/21/2024 1:09 PM CDT) Anatomical Region Laterality Modality Abdomen Computed Radiogr aphy 09/21/2024 1:09 PM CDT Narrative 09/21/2024 1:20 PM CDT EXAM: XR ABDOMEN 1 VW DATE/TIME OF EXAM: 09/21/2024 1:09 PM REASON FOR EXAM: Abdomen Distension, Pain DIAGNOSIS: See Reason for Exam COMPARISON: 08/02/2023 FINDINGS: Relatively gas and stool distended colon with likely significant formed stool in the ascending colon; query constipation. No definitive small bowel distention to suggest a small bowel obstruction. If there is concern for colitis or distal colonic lesion, this could be better assessed with CT imaging. The urinary bladder is likely moderately distended within the pelvis. Right upper quadrant cholecystectomy clips. Procedure Note Dony Guzman MD - 09/21/2024 EXAM: XR ABDOMEN 1 VW DATE/TIME OF EXAM: 09/21/2024 1:09 PM REASON FOR EXAM: Abdomen Distension, Pain DIAGNOSIS: See Reason for Exam COMPARISON: 08/02/2023 FINDINGS: Relatively gas and stool distended colon with likely significant formed stool in the ascending colon; query constipation. No definitive small bowel distention to suggest a small bowel obstruction. If there is concern for colitis or distal colonic lesion, this could be better assessed with CT imaging. The urinary bladder is likely moderately distended within the pelvis. Right upper quadrant cholecystectomy clips. us Corinna Sarabia MD DIAGNOSTIC IMAGING ORDERABLES F inal Result * HEMOGLOBIN A1C (06/17/2018 7:12 AM LATHE MACHINIST) HEMOGLOBIN A1C 5.2 4.8 - 5.9 % 06/17/2018 9:37 AM LATHE MACHINIST [facility] EST. AVG GLUCOSE, A1C 103 mg/dL 06/17/2018 9:37 AM [facility] Blood Venipuncture / Unknown 06/17/2018 7:12 AM LATHE MACHINIST 06/17/2018 7:13 AM LATHE MACHINIST Narrative [facility] - 06/17/2018 9:37 AM LATHE MACHINIST If not available from last three months. 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 Advance Directive POA 02/23/2024 3:51 PM Ad [place] Directive POA Advance Directive POA 12/22/2023 10:13 AM A dvance Directive POA Advance Directive Living Will 03/11/2015 6:57 AM Advance Directive Living Will Advance Directive Living Will 03/09/2015 11:28 AM Advance Directive Living Will * Full Code (Latest Code Status on File) Date Activated Date Inactivated Comments 09/30/2022 8:33 PM 10/01/2022 1:21 PM * Full Code Date Activated Date Inactivated Comments 10/27/2021 2:08 PM 10/29/2021 4:10 PM * Default Full Code - Needs Discussion Date Activated Date Inactivated Comments 10/26/2021 1:52 AM 10/27/2021 2:07 PM Care Teams Portable Track Line Marker Relationship Specialty Start Date End Date Sally Dong MD [address] [address] PCP - General Family Practice 04/07/22
--- OUTSIDE RECORDS SUMMARY | 2024-12-15 20:28 | XMS_ITS | Encounter Summary ---
Author Organization [facility] Address [address] [place] [address] Care Team Providers Care Nylon Hot Wire Cutter Name Role Phone Sally Dong MD Primary Care Provider [phone] Encounter Details Date Type Department Care Team (Late st Contact Info) Description 10/15/2024 Results Follow-Up [facility] Emergency Medicine [address] [place] [address] Brittaney Schmitt, RN URINE CULTURE Social History Tobacco Use Types Packs/Day Years [...] asked 05/05/2019 How often do you attend taoist or hoahaoism serv ices? 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
--- NOTE | 2024-12-15 21:03 | ECG_ITS ---
[facility] Test Date: 2024-12-15 Pat Name: Latesha Wilhelm Department: Room: Gender: Female Extract Operator: : 1965 Requested By: Omar Farias Order Number: [id number] Alice MD: Severo Aly M.D. Measurements Intervals [place] Rate: 68 P: 59 [place]: 168 QRS: 52 QRSD: 97 T: 48 QT: 407 QTc: 433 Interpretive Statements SINUS RHYTHM POSSIBLE LEFT ATRIAL ENLARGEMENT [-0.1mV P-WAVE IN V1/V2] Compared to ECG 10/27/2024 22:56:28 Indeterminate axis no longer present Incomplete right bundle-branch block no longer present Electronically Signed On 12-19-2024 09:10:22 CDT by Severo Aly M.D. [email or web address]
--- NOTE | 2024-12-15 21:03 | CTR_ITS ---
PROCEDURE INFORMATION: Exam: CT Head Without Contrast Exam date and time: 12/15/2024 10:02 PM Age: 59 years old Clinical indication: Pain; Headache; C/O GALLEGOS TECHNIQUE: Imaging protocol: Computed tomography of the head without contrast. Radiation optimization: All CT scans at this facility use at least one of these dose optimization techniques: automated exposure control; mA and/or kV adjustment per patient size (includes targeted exams where dose is matched to clinical indication); or iterative reconstruction. COMPARISON: CT head wo con* [id number] 10/20/2024 11:23 PM RADIATION DOSE METRICS: Total DLP (mGy-cm): 1003.98 FINDINGS: Brain: No hemorrhage. No edema, mass effect or midline shift. Cerebral ventricles: No ventriculomegaly. Paranasal sinuses: Opacification noted in the ethmoid sinuses. Mastoid air cells: No mastoid effusion. Bones: Unremarkable. No acute fracture. Soft tissues: Unremarkable. CT/CT head wo con* [id number] IMPRESSION: 1. No acute intracranial abnormality. 2. Ethmoid sinusitis.
[2024-12-15 21:09] VITALS: PULSE 72; O2SAT 94
[2024-12-15 21:12] LABS: Bilirubin Urine Negative (Negative); Blood Urine Negative (Negative); Glucose Urine UA Negative (Normal); Ketones Urine Negative (Negative); Leukocyte Esterase Urine Trace (Negative); Nitrate Urine Positive (Negative); Protein Urine Negative (Negative); Specific Gravity, Urine 1.013 (1.005-1.030); Urine Appearance Clear (CLEAR); Urine Color Dark Yellow (Yellow)
[2024-12-15 21:17] LABS: Add Urine Microscopic? YES; Bacteria Urine None Seen /hpf; Hyaline Casts Urine 0-4 /lpf; RBC Urine 0-2 /hpf (0-2); Squamous Epithelial Cell Urine 0-5 /hpf (0-5)
--- NOTE | 2024-12-15 21:19 | W.ED.ABDPA2 ---
Documented by User: Omar Farias MD 12/21/24 16:43 HPI - Abdominal Pain General: Chief Complaint: Abdominal Pain Stated Complaint: GALLEGOS Time Seen by Provider: 12/15/24 20:28 History of Present Illness: Chief complaint is abdominal pain. Patient states she has chronic problems with abdominal pain. She states she was doing well until 6 PM this evening she was sitting on the couch watching TV. She states she was not exerting herself or stressed or lifting anything heavy or anxious. She states that she developed a bilateral headache. She states then the headache moved into her abdomen and she developed some abdominal pain. The abdominal pain is generalized. She states that severe pain. No chest pain or shortness of breath. No cough. No fever. She states the headache resolved. She states this has happened to her in the past as well. No history of aneurysms. She denies being anticoagulated. Denies black or bloody stools. Denies having fever. She states she did start vomiting with the abdominal pain. No radiation of pain to her back. Mild discomfort with urination at times and she wondered if she might have a UTI she tells me. No blood in her stools or black or bloody stools or emesis. She states she has been under stress because she recently had to bury her father about 2 weeks ago. She states she is safe at home. Related Data Home Medications ?Medication ?Instructions ?Recorded ?Confirmed acetaminophen 500 mg tablet 1,000 mg PO Q6H PRN Pain 07/09/21 12/12/24 pantoprazole 40 mg tablet,delayed 40 mg PO BID 07/27/23 12/12/24 release ondansetron HCl 4 mg tablet 4 mg PO Q8H 01/22/24 12/12/24 prednisolone acetate 1 % eye drp ophthalmic (eye) 05/10/24 12/12/24 drops,suspension dicyclomine 10 mg capsule 10 mg PO BID PRN 05/27/24 12/12/24 polyethylene glycol 3350 17 4 g PO DAILY 05/27/24 12/12/24 gram/dose oral powder (Miralax) sucralfate 1 gram tablet (Carafate) 1 g PO QID 05/27/24 12/12/24 famotidine 20 mg tablet mg PO 09/23/24 12/12/24 lubiprostone 24 mcg capsule mcg PO 09/23/24 12/12/24 Previous Rx's ?Medication ?Instructions ?Recorded nystatin 100,000 unit/gram topical 1 applic topical BID #30 grams 06/16/22 powder SOLE Supports #1 ea 01/01/24 fluticasone propionate 50 1 spray intranasal DAILY PRN nasal 05/10/24 mcg/actuation nasal congestion 30 days #16 grams spray,suspension (Flonase Allergy Relief) Rollator Walker #1 ea 09/06/24 quetiapine 25 mg tablet 25 mg PO BID PRN agitation #60 tabs 09/26/24 promethazine 25 mg tablet 12.5 - 25 mg (0.5 - 1 x 25 mg) PO 10/05/24 Q6H PRN nausea and vomiting #10 tabs lamotrigine 200 mg tablet 200 mg PO DAILY@06 #30 tabs 10/25/24 quetiapine 50 mg tablet 50 mg PO BID #60 tabs 10/25/24 trazodone 300 mg tablet 300 mg PO .q hs PRN sleep #30 tabs 10/25/24 vortioxetine 20 mg tablet 20 mg PO .q am #30 tabs 10/25/24 (Trintellix) albuterol sulfate 90 mcg/actuation See Rx Instructions .Route 11/22/24 aerosol inhaler .COMPLEX #9 grams tizanidine 4 mg tablet 4 mg PO BID PRN muscle spasticity 12/12/24 30 days #60 tabs cephalexin 500 mg capsule 500 mg PO TID 7 days #21 caps 12/15/24 cholecalciferol (vitamin D3) 1,250 1,250 mcg PO .once a week 90 days 12/16/24 mcg (50,000 unit) capsule #12 caps Allergies Allergy/AdvReac Type Severity Reaction Status Date / Time haloperidol (From Haldol) Allergy Severe unknown Verified 12/03/24 08:10 Penicillins Allergy Severe ALGY-Anaphy Verified 12/03/24 08:10 laxis sulfamethoxazole (From Allergy Severe ALGY-Hives Verified 12/03/24 08:10 Bactrim) Tetracyclines Allergy Severe ALGY-Hives Verified 12/03/24 08:10 gabapentin (From Neurontin) Allergy Intermediate ADR-Halluci Verified 12/03/24 08:10 nating ketorolac (From Toradol) Allergy Intermediate ALGY-Rash Verified 12/03/24 08:10 lithium Allergy Intermediate ADR-Halluci Verified 12/03/24 08:10 nating fentanyl Allergy Mild rash Verified 12/03/24 08:10 adhesive tape Allergy Rash Verified 12/03/24 08:10 codeine Allergy GI Verified 12/03/24 08:10 duloxetine (From Cymbalta) Allergy ALGY-Rash Verified 12/03/24 08:10 fluoxetine Allergy ADR-Migrain Verified 12/03/24 08:10 e metoclopramide (From Reglan) Allergy ADR-Shakine Verified 12/03/24 08:10 ss nitroglycerin Allergy ADV-Weaknes Verified 12/03/24 08:10 s tramadol Allergy Unknown Verified 12/03/24 08:10 trimethoprim (From Bactrim) Allergy ALGY-Hives Verified 12/03/24 08:10 ziprasidone (From Geodon) AdvReac Severe ADR-Halluci Verified 12/03/24 08:10 nating risperidone (From Risperdal) AdvReac ADR-Halluci Verified 12/03/24 08:10 nating PFSH ED PFSH: Medical History Chronic gastritis without bleeding Insomnia Tobacco use disorder Opioid dependence, uncomplicated Cannabis dependence, uncomplicated Psychiatric care Tardive dyskinesia Esophageal stricture Cystitis cystica Restrictive lung disease Chronic back pain greater than 3 months duration Borderline personality disorder Schizoaffective disorder, bipolar type Urgency incontinence Neurogenic bladder Dysphagia COPD (chronic obstructive pulmonary disease) GERD without esophagitis Foreign body in bladder Bladder stone Chronic anxiety Surgical History H/O bladder repair surgery MESH REPAIR H/O esophagogastroduodenoscopy (09/21/20) H/O colonoscopy with polypectomy History of foot surgery sx in 2009. Screws placed by Dr. Don. S/P bronchoscopy with biopsy History of ureter stent History of breast biopsy Hx of cholecystectomy H/O: hysterectomy History of appendectomy Family History Mother No problems noted. Father No problems noted. Other Asthma Cancer Diabetes Heart disease Social History Smoking and tobacco/nicotine status: never used tobacco/nicotine Quit status (tobacco/nicotine): considering quitting Second hand smoke exposure: Yes Alcohol intake: never Substance/Drug Use: former Lives independently: Yes Household members: spouse Marital status: Number of children: 3 Current occupational status: disabled Do you think of yourself as: Straight/Heterosexual Current gender identity: Female Physical Exam Narrative: EXAM NARRATIVE: Patient sitting up in the bed watching TV. She is alert oriented no acute distress. Pupils equal and reactive to light. Normal conjunctiva. Full range ocular motion. No facial droop. No drift in her arms or legs. Neck is supple. She moves her neck freely. Moist mucous membranes. No sinus congestion on exam. Heart regular rhythm no rubs no murmurs. Lung sounds are clear with no increased work of breathing. No retractions or accessory muscle use. No vertebral tenderness over her neck or back. Her abdomen soft. She complains of tenderness throughout the abdomen but has no guarding or rebound or palpable mass. No focal nature of tenderness. Extremities are warm well-perfused no calf tenderness or pitting edema. She has no rash in exposed areas. Patient speech is clear. No ataxia. Brisk intact [id number]. Course Vital Signs: Vital signs: Vital Signs Temperature 98.0 F 12/15/24 20:20 Pulse Rate 60 12/15/24 23:37 Respiratory Rate 16 12/15/24 23:37 Blood Pressure 130/57 12/15/24 23:37 Pulse Oximetry 91 12/15/24 23:37 Oxygen Delivery Me thod Room Air 12/15/24 21:44 MDM - Abdominal Pain Medical Decision Making Patient presents complaining of a headache and then development of abdominal pain that started 3 hours prior to arrival approximately. Patient denies history of aneurysm. She states she was not exerting herself. She states that headache has resolved completely. She states this has happened before where she will get a headache followed by abdominal pain. Will send patient for CT of the head this has been 3 hours since onset of the headache however sentinel liquid be unlikely by exam and history. Patient has chronic abdominal pain. Acute diverticulitis or volvulus, peptic ulcer disease, referred cardiac ischemia, pancreatitis, retained bile duct stone, extremely broad differential. Patient has chronic abdominal pain and on review has had multiple visits to the emergency department for abdominal pain. Diverticulitis would be unlikely with acute sudden onset of symptoms. The patient is alert in the room talkative in no acute distress. When I ask her about her abdomen however she starts to complain of severe abdominal pain requesting pain medication. I discussed the patient treatment plan. I ordered Compazine 10 mg IV and Benadryl 25 mg IV and she agrees with this plan after informed discussion. She states she does have a history congestive heart failure so I ordered 500 cc normal saline IV fluid bolus and will monitor response carefully. CBC CMP urinalysis and lipase ordered and troponin and EKG. Patient EKG to my interpretation shows sinus rhythm with a rate of 68 bpm. Cardiac ischemia would be very unlikely based on EKG history and other associated symptoms such as headache and abdominal pain. pt endorsed to Dr. Deleon at 2200 Lab Data 12/15/24 21:20 12/15/24 21:20 Labs/Radiology: Radiology Impressions Head CT 12/15/24 21:03 IMPRESSION: 1. No acute intracranial abnormality. 2. Ethmoid sinusitis. Laboratory Results WBC 17.57 10^3/uL (3.29-11.43) H 12/15/24 21:20 RBC 4.07 10^6/uL (3.85-5.65) 12/15/24 21:20 Hgb 13.40 g/dL (11.27-16.99) 12/15/24 21:20 Hct 39.4 % (36-47) 12/15/24 21:20 MCV 96.8 fl (85-98) 12/15/24 21:20 MCH 32.9 pg (27-33) 12/15/24 21:20 MCHC 34.0 g/dL (30-55) 12/15/24 21:20 RDW 14.3 % (12.1-15.1) 12/15/24 21:20 Plt Count 237 10^3/cmm (157-399) 12/15/24 21:20 MPV 9.6 fL (7.4-10.4) 12/15/24 21:20 Neut % (Auto) 74.8 % 12/15/24 21:20 Lymph % (Auto) 14.2 % 12/15/24 21:20 [place] % (Auto) 8.1 % 12/15/24 21:20 Eos % (Auto) 1.8 % 12/15/24 21:20 Baso % (Auto) 0.6 % 12/15/24 21:20 Neut # (Auto) 13.16 10^3/uL (1.8-7.7) H 12/15/24 21:20 Lymph # (Auto) 2.5 10^3/uL (0.8-4.8) 12/15/24 21:20 [place] # (Auto) 1.4 10^3/uL (0.2-0.9) H 12/15/24 21:20 Eos # (Auto) 0.3 10^3/uL (0.0-0.8) 12/15/24 21:20 Baso # (Auto) 0.1 10^3/uL (0.0-0.1) 12/15/24 21:20 Nucleated RBC % (auto) 0 % 12/15/24 21:20 Nucleated RBCs # 0.0 /100WBC 12/15/24 21:20 Sodium 140 mmol/L (136-145) 12/15/24 21:20 Potassium 3.8 mmol/L (3.5-5.1) 12/15/24 21:20 Chloride 105 mmol/L (98-107) 12/15/24 21:20 Carbon Dioxide 23 mmol/L (22-29) 12/15/24 21:20 Anion Gap 15.8 (5-19) 12/15/24 21:20 BUN 23 mg/dL (6-20) H 12/15/24 21:20 Creatinine 0.8 mg/dL (0.5-0.9) 12/15/24 21:20 GFR Calculation 73.9 mL/min (90-130) L 12/15/24 21:20 Glucose 100 mg/dL (65-115) 12/15/24 21:20 Calculated Osmolality 294 mOsm/kg (285-295) 12/15/24 21:20 Calcium 9.8 mg/dL (8.5-10.5) 12/15/24 21:20 Total Bilirubin 0.2 mg/dL (0.15-1.2) 12/15/24 21:20 AST 13 U/L (0-32) 12/15/24 21:20 ALT 10 U/L (0-33) 12/15/24 21:20 Alkaline Phosphatase 119 U/L (35-105) H 12/15/24 21:20 Troponin T Baseline < 6 ng/L (0-10) 12/15/24 21:20 Total Protein 6.7 g/dL (6.6-8.7) 12/15/24 21:20 Albumin 4.2 g/dL (3.5-5.2) 12/15/24 21:20 Globulin 2.5 g/dL (1.3-4.6) 12/15/24 21:20 Lipase 31 U/L (13-60) 12/15/24 21:20 Urine Color Dark yellow (Yellow) A 12/15/24 21:00 Urine Appearance Clear (CLEAR) 12/15/24 21:00 Urine pH 7.0 (5-7) 12/15/24 21:00 Ur Specific [place] 1.013 (1.005-1.030) 12/15/24 21:00 Urine Protein Negative (Negative) 12/15/24 21:00 Urine Glucose (UA) Negative (Normal) 12/15/24 21:00 Urine Ketones Negative (Negative) 12/15/24 21:00 Urine Blood Negative (Negative) 12/15/24 21:00 Urine Nitrate Positive (Negative) A 12/15/24 21:00 Urine Bilirubin Negative (Negative) 12/15/24 21:00 Urine Urobilinogen 1.0 mg/dL (Negative) 12/15/24 21:00 Ur Leukocyte Esterase Trace (Negative) A 12/15/24 21:00 Urine RBC 0-2 /hpf (0-2) 12/15/24 21:00 Urine WBC 11-20 /hpf (0-5) H 12/15/24 21:00 Ur Squamous Epith Cells 0-5 /hpf (0-5) 12/15/24 21:00 Amorphous Sediment Not Reportable 12/15/24 21:00 Urine Bacteria None seen /hpf (NONE) 12/15/24 21:00 Hyaline Casts 0-4 /lpf H 12/15/24 21:00 Discharge Plan Discharge Patient Disposition: Home Clinical Impression: UTI (urinary tract infection), Abdominal pain Condition: Stable Prescriptions: New cephalexin 500 mg capsule 500 mg PO TID 7 Days Qty: 21 0RF No Action pantoprazole 40 mg tablet,delayed release (DR/EC) 40 mg PO BID (DME) SOLE Supports See Rx Instructions .Route .MEDSUPPLY Qty: 1 0RF Rx Instructions: As directed PRE-Auth prednisolone acetate 1 % drops,suspension ophthalmic (eye) fluticasone propionate [Flonase Allergy Relief] 50 mcg/actuation spray,suspension 1 spray intranasal DAILY PRN (Reason: nasal congestion) 30 Days Qty: 16 2RF Rx Instructions: administer into each nostril dicyclomine 10 mg capsule 10 mg PO BID PRN quetiapine 25 mg tablet 25 mg PO BID PRN (Reason: agitation) Qty: 60 2RF Rx Instructions: Take one tablet up to twice a day, if needed, for agitation famotidine 20 mg tablet PO lubiprostone 24 mcg capsule PO lamotrigine 200 mg tablet 200 mg PO DAILY@06 Qty: 30 3RF Rx Instructions: Take one tablet by mouth every morning quetiapine 50 mg tablet 50 mg PO BID Qty: 60 3RF Rx Instructions: Take one tablet by mouth every morning and night trazodone 300 mg tablet 300 mg PO .q hs PRN (Reason: sleep) Qty: 30 3RF Rx Instructions: Take one tablet daily at bedtime, if needed for sleep Trintellix 20 mg tablet 20 mg PO .q am Qty: 30 3RF Rx Instructions: Take one tablet once daily tizanidine 4 mg tablet 4 mg PO BID PRN (Reason: muscle spasticity) 30 Days Qty: 60 0RF ondansetron HCl 4 mg tablet 4 mg PO Q8H sucralfate [Carafate] 1 gram tablet 1 g PO QID polyethylene glycol 3350 [Miralax] 17 gram/dose powder 4 g PO DAILY nystatin 100,000 unit/gram powder 1 applic topical BID Qty: 30 0RF Rx Instructions: apply locally to B/L groin folds (DME) Rollator Walker See Rx Instructions .Route .MEDSUPPLY Qty: 1 0RF Rx Instructions: As directed HOME: Length of need 4 months albuterol sulfate 90 mcg/actuation HFA aerosol inhaler See Rx Instructions .ROUTE .COMPLEX Qty: 9 0RF Dose Instruction: INHALE 2 PUFFS BY MOUTH EVERY 6 HOURS NEEDED FOR SHORTNESS OF BREATH OR WHEEZING Rx Instructions: INHALE 2 PUFFS BY MOUTH EVERY 6 HOURS NEEDED FOR SHORTNESS OF BREATH OR WHEEZING cholecalciferol (vitamin D3) 1,250 mcg (50,000 unit) capsule 1,250 mcg PO .once a week 90 Days Qty: 12 0RF acetaminophen 500 mg Tablet 1,000 mg PO Q6H PRN (Reason: Pain) promethazine 25 mg tablet 12.5 - 25 mg PO Q6H PRN (Reason: nausea and vomiting) Qty: 10 0RF Rx Instructions: 4 doses during day; last dose no later than 4 hr before bedtime Discharge Orders: Discharge ED (Routine); Ordered 12/15/24 Ordered By: Chivo Deleon Referrals: Dara Tavera FNP [Primary Care Provider, Family Practice] - 1-3 days Patient Instructions: Abdominal Pain (ED), Opioid Safety, Pain Management, Patient Portal & [facility] Instructions Print Language: American Coding Level of Care Code ED [employer] for Chg Fwd Documented by User: Chivo Deleon, 12/16/24 02:59 HPI - Abdominal Pain General: Chief Complaint: Abdominal Pain Stated Complaint: GALLEGOS Time Seen by Provider: 12/15/24 20:28 Related Data Home Medications ?Medication ?Instructions ?Recorded ?Confirmed acetaminophen 500 mg tablet 1,000 mg PO Q6H PRN Pain 07/09/21 12/12/24 pantoprazole 40 mg tablet,delayed 40 mg PO BID 07/27/23 12/12/24 release ondansetron HCl 4 mg tablet 4 mg PO Q8H 01/22/24 12/12/24 prednisolone acetate 1 % eye drp ophthalmic (eye) 05/10/24 12/12/24 drops,suspension dicyclomine 10 mg capsule 10 mg PO BID PRN 05/27/24 12/12/24 polyethylene glycol 3350 17 4 g PO DAILY 05/27/24 12/12/24 gram/dose oral powder (Miralax) sucralfate 1 gram tablet (Carafate) 1 g PO QID 05/27/24 12/12/24 famotidine 20 mg tablet mg PO 09/23/24 12/12/24 lubiprostone 24 mcg capsule mcg PO 09/23/24 12/12/24 Previous Rx's ?Medication ?Instructions ?Recorded nystatin 100,000 unit/gram topical 1 applic topical BID #30 grams 06/16/22 powder SOLE Supports #1 ea 01/01/24 fluticasone propionate 50 1 spray intranasal DAILY PRN nasal 05/10/24 mcg/actuation nasal congestion 30 days #16 grams spray,suspension (Flonase Allergy Relief) Rollator Walker #1 ea 09/06/24 quetiapine 25 mg tablet 25 mg PO BID PRN agitation #60 tabs 09/26/24 promethazine 25 mg tablet 12.5 - 25 mg (0.5 - 1 x 25 mg) PO 10/05/24 Q6H PRN nausea and vomiting #10 tabs lamotrigine 200 mg tablet 200 mg PO DAILY@06 #30 tabs 10/25/24 quetiapine 50 mg tablet 50 mg PO BID #60 tabs 10/25/24 trazodone 300 mg tablet 300 mg PO .q hs PRN sleep #30 tabs 10/25/24 vortioxetine 20 mg tablet 20 mg PO .q am #30 tabs 10/25/24 (Trintellix) albuterol sulfate 90 mcg/actuation See Rx Instructions .Route 11/22/24 aerosol inhaler .COMPLEX #9 grams tizanidine 4 mg tablet 4 mg PO BID PRN muscle spasticity 12/12/24 30 days #60 tabs cephalexin 500 mg capsule 500 mg PO TID 7 days #21 caps 12/15/24 cholecalciferol (vitamin D3) 1,250 1,250 mcg PO .once a week 90 days 12/16/24 mcg (50,000 unit) capsule #12 caps Allergies Allergy/AdvReac Type Severity Reaction Status Date / Time haloperidol (From Haldol) Allergy Severe unknown Verified 12/03/24 08:10 Penicillins Allergy Severe ALGY-Anaphy Verified 12/03/24 08:10 laxis sulfamethoxazole (From Allergy Severe ALGY-Hives Verified 12/03/24 08:10 Bactrim) Tetracyclines Allergy Severe ALGY-Hives Verified 12/03/24 08:10 gabapentin (From Neurontin) Allergy Intermediate ADR-Halluci Verified 12/03/24 08:10 nating ketorolac (From Toradol) Allergy Intermediate ALGY-Rash Verified 12/03/24 08:10 lithium Allergy Intermediate ADR-Halluci Verified 12/03/24 08:10 nating fentanyl Allergy Mild rash Verified 12/03/24 08:10 adhesive tape Allergy Rash Verified 12/03/24 08:10 codeine Allergy GI Verified 12/03/24 08:10 duloxetine (From Cymbalta) Allergy ALGY-Rash Verified 12/03/24 08:10 fluoxetine Allergy ADR-Migrain Verified 12/03/24 08:10 e metoclopramide (From Reglan) Allergy ADR-Shakine Verified 12/03/24 08:10 ss nitroglycerin Allergy ADV-Weaknes Verified 12/03/24 08:10 s tramadol Allergy Unknown Verified 12/03/24 08:10 trimethoprim (From Bactrim) Allergy ALGY-Hives Verified 12/03/24 08:10 ziprasidone (From Geodon) AdvReac Severe ADR-Halluci Verified 12/03/24 08:10 nating risperidone (From Risperdal) AdvReac ADR-Halluci Verified 12/03/24 08:10 nating [facility] ED PFSH: Medical History Chronic gastritis without bleeding Insomnia Tobacco use disorder Opioid dependence, uncomplicated Cannabis dependence, uncomplicated Psychiatric care Tardive dyskinesia Esophageal stricture Cystitis cystica Restrictive lung disease Chronic back pain greater than 3 months duration Borderline personality disorder Schizoaffective disorder, bipolar type Urgency incontinence Neurogenic bladder Dysphagia COPD (chronic obstructive pulmonary disease) GERD without esophagitis Foreign body in bladder Bladder stone Chronic anxiety Surgical History H/O bladder repair surgery MESH REPAIR H/O esophagogastroduodenoscopy (09/21/20) H/O colonoscopy with polypectomy History of foot surgery sx in 2009. Screws placed by Dr. Don. S/P bronchoscopy with biopsy History of ureter stent History of breast biopsy Hx of cholecystectomy H/O: hysterectomy History of appendectomy Family History Mother No problems noted. Father No problems noted. Other Asthma Cancer Diabetes Heart disease Social History (Reviewed 11/21/24 @ 14:40 by ADARSH [place] Smoking and tobacco/nicotine status: never used tobacco/nicotine Quit status (tobacco/nicotine): considering quitting Second hand smoke exposure: Yes Alcohol intake: never Substance/Drug Use: former Lives independently: Yes Household members: spouse Marital status: Number of children: 3 Current occupational status: disabled Do you think of yourself as: Straight/Heterosexual Current gender identity: Female Course Vital Signs: Vital signs: Vital Signs Temperature 98.0 F 12/15/24 20:20 Pulse Rate 60 12/15/24 23:37 Respiratory Rate 16 12/15/24 23:37 Blood Pressure 130/57 12/15/24 23:37 Pulse Oximetry 91 12/15/24 23:37 Oxygen Delivery Me thod Room Air 12/15/24 21:44 MDM - Abdominal Pain Medical Decision Making Patient presents complaining of a headache and then development of abdominal pain that started 3 hours prior to arrival approximately. Patient denies history of aneurysm. She states she was not exerting herself. She states that headache has resolved completely. She states this has happened before where she will get a headache followed by abdominal pain. Will send patient for CT of the head this has been 3 hours since onset of the headache however sentinel liquid be unlikely by exam and history. Patient has chronic abdominal pain. Acute diverticulitis or volvulus, peptic ulcer disease, referred cardiac ischemia, pancreatitis, retained bile duct stone, extremely broad differential. Patient has chronic abdominal pain and on review has had multiple visits to the emergency department for abdominal pain. Diverticulitis would be unlikely with acute sudden onset of symptoms. The patient is alert in the room talkative in no acute distress. When I ask her about her abdomen however she starts to complain of severe abdominal pain requesting pain medication. I discussed the patient treatment plan. I ordered Compazine 10 mg IV and Benadryl 25 mg IV and she agrees with this plan after informed discussion. She states she does have a history congestive heart failure so I ordered 500 cc normal saline IV fluid bolus and will monitor response carefully. CBC CMP urinalysis and lipase ordered and troponin and EKG. Patient EKG to my interpretation shows sinus rhythm with a rate of 68 bpm. Cardiac ischemia would be very unlikely based on EKG history and other associated symptoms such as headache and abdominal pain. pt endorsed to Dr. Deleon at 2200 Patient checked out to me at shift change pending laboratory and urinalysis. Patient does have a urinary tract infection. She does have a leukocytosis. This is chronic. Head CT is nonacute. There is some ethmoid sinusitis present. She has a urinary tract infection which will be treated. Troponin is nondetectable. Other laboratory is benign. She did receive some fluid. She is feeling improved. She is asking to go home. She will be discharged outpatient follow-up. Lab Data 12/15/24 21:20 12/15/24 21:20 Labs/Radiology: Radiology Impressions Head CT 12/15/24 21:03 IMPRESSION: 1. No acute intracranial abnormality. 2. Ethmoid sinusitis. Laboratory Results WBC 17.57 10^3/uL (3.29-11.43) H 12/15/24 21:20 RBC 4.07 10^6/uL (3.85-5.65) 12/15/24 21:20 Hgb 13.40 g/dL (11.27-16.99) 12/15/24 21:20 Hct 39.4 % (36-47) 12/15/24 21:20 MCV 96.8 fl (85-98) 12/15/24 21:20 MCH 32.9 pg (27-33) 12/15/24 21:20 MCHC 34.0 g/dL (30-55) 12/15/24 21:20 RDW 14.3 % (12.1-15.1) 12/15/24 21:20 Plt Count 237 10^3/cmm (157-399) 12/15/24 21:20 MPV 9.6 fL (7.4-10.4) 12/15/24 21:20 Neut % (Auto) 74.8 % 12/15/24 21:20 Lymph % (Auto) 14.2 % 12/15/24 21:20 [place] % (Auto) 8.1 % 12/15/24 21:20 Eos % (Auto) 1.8 % 12/15/24 21:20 Baso % (Auto) 0.6 % 12/15/24 21:20 Neut # (Auto) 13.16 10^3/uL (1.8-7.7) H 12/15/24 21:20 Lymph # (Auto) 2.5 10^3/uL (0.8-4.8) 12/15/24 21:20 [place] # (Auto) 1.4 10^3/uL (0.2-0.9) H 12/15/24 21:20 Eos # (Auto) 0.3 10^3/uL (0.0-0.8) 12/15/24 21:20 Baso # (Auto) 0.1 10^3/uL (0.0-0.1) 12/15/24 21:20 Nucleated RBC % (auto) 0 % 12/15/24 21:20 Nucleated RBCs # 0.0 /100WBC 12/15/24 21:20 Sodium 140 mmol/L (136-145) 12/15/24 21:20 Potassium 3.8 mmol/L (3.5-5.1) 12/15/24 21:20 Chloride 105 mmol/L (98-107) 12/15/24 21:20 Carbon Dioxide 23 mmol/L (22-29) 12/15/24 21:20 Anion Gap 15.8 (5-19) 12/15/24 21:20 BUN 23 mg/dL (6-20) H 12/15/24 21:20 Creatinine 0.8 mg/dL (0.5-0.9) 12/15/24 21:20 GFR Calculation 73.9 mL/min (90-130) L 12/15/24 21:20 Glucose 100 mg/dL (65-115) 12/15/24 21:20 Calculated Osmolality 294 mOsm/kg (285-295) 12/15/24 21:20 Calcium 9.8 mg/dL (8.5-10.5) 12/15/24 21:20 Total Bilirubin 0.2 mg/dL (0.15-1.2) 12/15/24 21:20 AST 13 U/L (0-32) 12/15/24 21:20 ALT 10 U/L (0-33) 12/15/24 21:20 Alkaline Phosphatase 119 U/L (35-105) H 12/15/24 21:20 Troponin T Baseline < 6 ng/L (0-10) 12/15/24 21:20 Total Protein 6.7 g/dL (6.6-8.7) 12/15/24 21:20 Albumin 4.2 g/dL (3.5-5.2) 12/15/24 21:20 Globulin 2.5 g/dL (1.3-4.6) 12/15/24 21:20 Lipase 31 U/L (13-60) 12/15/24 21:20 Urine Color Dark yellow (Yellow) A 12/15/24 21:00 Urine Appearance Clear (CLEAR) 12/15/24 21:00 Urine pH 7.0 (5-7) 12/15/24 21:00 Ur Specific [place] 1.013 (1.005-1.030) 12/15/24 21:00 Urine Protein Negative (Negative) 12/15/24 21:00 Urine Glucose (UA) Negative (Normal) 12/15/24 21:00 Urine Ketones Negative (Negative) 12/15/24 21:00 Urine Blood Negative (Negative) 12/15/24 21:00 Urine Nitrate Positive (Negative) A 12/15/24 21:00 Urine Bilirubin Negative (Negative) 12/15/24 21:00 Urine Urobilinogen 1.0 mg/dL (Negative) 12/15/24 21:00 Ur Leukocyte Esterase Trace (Negative) A 12/15/24 21:00 Urine RBC 0-2 /hpf (0-2) 12/15/24 21:00 Urine WBC 11-20 /hpf (0-5) H 12/15/24 21:00 Ur Squamous Epith Cells 0-5 /hpf (0-5) 12/15/24 21:00 Amorphous Sediment Not Reportable 12/15/24 21:00 Urine Bacteria None seen /hpf (NONE) 12/15/24 21:00 Hyaline Casts 0-4 /lpf H 12/15/24 21:00 All radiology interpretation(s) finalized by discharge Discharge Plan Discharge Patient Disposition: Home Clinical Impression: UTI (urinary tract infection), Abdominal pain Condition: Stable Prescriptions: New cephalexin 500 mg capsule 500 mg PO TID 7 Days Qty: 21 0RF No Action pantoprazole 40 mg tablet,delayed release (DR/EC) 40 mg PO BID (DME) SOLE Supports See Rx Instructions .Route .MEDSUPPLY Qty: 1 0RF Rx Instructions: As directed PRE-Auth prednisolone acetate 1 % drops,suspension ophthalmic (eye) fluticasone propionate [Flonase Allergy Relief] 50 mcg/actuation spray,suspension 1 spray intranasal DAILY PRN (Reason: nasal congestion) 30 Days Qty: 16 2RF Rx Instructions: administer into each nostril dicyclomine 10 mg capsule 10 mg PO BID PRN quetiapine 25 mg tablet 25 mg PO BID PRN (Reason: agitation) Qty: 60 2RF Rx Instructions: Take one tablet up to twice a day, if needed, for agitation famotidine 20 mg tablet PO lubiprostone 24 mcg capsule PO lamotrigine 200 mg tablet 200 mg PO DAILY@06 Qty: 30 3RF Rx Instructions: Take one tablet by mouth every morning quetiapine 50 mg tablet 50 mg PO BID Qty: 60 3RF Rx Instructions: Take one tablet by mouth every morning and night trazodone 300 mg tablet 300 mg PO .q hs PRN (Reason: sleep) Qty: 30 3RF Rx Instructions: Take one tablet daily at bedtime, if needed for sleep Trintellix 20 mg tablet 20 mg PO .q am Qty: 30 3RF Rx Instructions: Take one tablet once daily tizanidine 4 mg tablet 4 mg PO BID PRN (Reason: muscle spasticity) 30 Days Qty: 60 0RF ondansetron HCl 4 mg tablet 4 mg PO Q8H sucralfate [Carafate] 1 gram tablet 1 g PO QID polyethylene glycol 3350 [Miralax] 17 gram/dose powder 4 g PO DAILY nystatin 100,000 unit/gram powder 1 applic topical BID Qty: 30 0RF Rx Instructions: apply locally to B/L groin folds (DME) Rollator Walker See Rx Instructions .Route .MEDSUPPLY Qty: 1 0RF Rx Instructions: As directed HOME: Length of need 4 months albuterol sulfate 90 mcg/actuation HFA aerosol inhaler See Rx Instructions .ROUTE .COMPLEX Qty: 9 0RF Dose Instruction: INHALE 2 PUFFS BY MOUTH EVERY 6 HOURS NEEDED FOR SHORTNESS OF BREATH OR WHEEZING Rx Instructions: INHALE 2 PUFFS BY MOUTH EVERY 6 HOURS NEEDED FOR SHORTNESS OF BREATH OR WHEEZING cholecalciferol (vitamin D3) 1,250 mcg (50,000 unit) capsule 1,250 mcg PO .once a week 90 Days Qty: 12 0RF acetaminophen 500 mg Tablet 1,000 mg PO Q6H PRN (Reason: Pain) promethazine 25 mg tablet 12.5 - 25 mg PO Q6H PRN (Reason: nausea and vomiting) Qty: 10 0RF Rx Instructions: 4 doses during day; last dose no later than 4 hr before bedtime Discharge Orders: Discharge ED (Routine); Ordered 12/15/24 Ordered By: Chivo Deleon Referrals: Dara Tavera, PREVENTIVE MAINTENANCE COORDINATOR [Primary Care Provider, [facility]] - 1-3 days Patient Instructions: Abdominal Pain (ED), Opioid Safety, Pain Management, Patient Portal & [place] Instructions Print Language: American Coding Level of Care Code ED [employer]er for Shellie Guallpa
[2024-12-15] MEDS: sodium chloride 0.9% 500 ML 999 ML IV (21:21)
[2024-12-15] MEDS: diphenhydrAMINE 50 mg/mL SDV 1mL 25 MG IVP (21:22)
[2024-12-15] MEDS: prochlorperazine 10 mg/2 mL Inj IVP (21:24)
[2024-12-15 21:31] VITALS: PULSE 68; RESP 16; O2SAT 93
[2024-12-15 21:41] LABS: Basophils # 0.1 10^3/uL (0.0-0.1); Basophils % 0.6 %; Eosinophils # 0.3 10^3/uL (0.0-0.8); Eosinophils % 1.8 %; Hematocrit 39.4 % (36-47); Lymphocytes # 2.5 10^3/uL (0.8-4.8); Lymphocytes % 14.2 %; Mean Corpuscular Hemoglobin 32.9 pg (27-33); Mean Corpuscular Volume 96.8 fl (85-98); Mean Platelet Volume 9.6 fL (7.4-10.4); Monocytes # 1.4 10^3/uL (0.2-0.9); Monocytes % 8.1 %; Neutrophils # 13.16 10^3/uL (1.8-7.7); Neutrophils % 74.8 %; Nucleated Red Blood Cells % 0 %; Platelet Count 237 10^3/cmm (157-399); Red Blood Count 4.07 10^6/uL (3.85-5.65); Red Cell Distribution Width 14.3 % (12.1-15.1); White Blood Count 17.57 10^3/uL (3.29-11.43)
[2024-12-15 21:44] VITALS: BP 148/86; PULSE 66; O2SAT 91
[2024-12-15 21:57] LABS: Alanine Aminotransferase 10 U/L (0-33); Albumin Level 4.2 g/dL (3.5-5.2); Alkaline Phosphatase 119 U/L (35-105); Anion Gap 15.8 (5-19); Aspartate Amino Transferase 13 U/L (0-32); Blood Urea Nitrogen 23 mg/dL (6-20); Calcium 9.8 mg/dL (8.5-10.5); Carbon Dioxide 23 mmol/L (22-29); Chloride 105 mmol/L (98-107); Globulin 2.5 g/dL (1.3-4.6); Glomerular Filtration Rate 73.9 mL/min (90-130); Glucose 100 mg/dL (65-115); Lipase 31 U/L (13-60); Osmolality Calculated 294 mOsm/kg (285-295); Potassium 3.8 mmol/L (3.5-5.1); Sodium 140 mmol/L (136-145); Total Bilirubin 0.2 mg/dL (0.15-1.2); Total Protein 6.7 g/dL (6.6-8.7)
[2024-12-15 21:58] LABS: Troponin(5th) Baseline < 6 ng/L (0-10)
[2024-12-15 23:37] VITALS: BP 130/57; PULSE 60; RESP 16; O2SAT 91
== END 2024-12-15 23:38 | disposition home or self-care (01) ==
PROVIDERS: Emergency Provider Emergency Medicine; PCP Registered Nurse
DX: N39.0 Urinary tract infection, site not specified (principal); R10.9 Unspecified abdominal pain; J44.9 Chronic obstructive pulmonary disease, unspecified
CPT/HCPCS: 70450; 80053; 81001; 83690; 84484; 85025; 93005; 96361; 96374; 96375; 99285; J0780; J1200; J7040

== ENCOUNTER 2025-01-05 22:01 | Emergency (ER) | payer OTHER, MEDICAID, SELFPAY ==
--- OUTSIDE RECORDS SUMMARY | 2010-09-24 03:47 | XMS_ITS | Continuity of Care Document ---
Author Organization [facility] Address [address] [id number] [address] Phone Care Team Providers Care Licensing Director Name Role Phone Nathaniel Toussaint DDS, MD [...] Diagnoses Date Provider Providers Copied on Encounter [facility], [id number] [id number][place], [address], [place] tel:[phone] Family Medicine F1 No Information Breana Armstrong. [address] [place] [place], [address], [place]. tel:[phone] [facility], [id number]-[place], [address], [place] tel:[phone] [facility] Dental examination Breana Armstrong. [address], [place], [address], [place]. tel:[phone] Referring Provider: Nathaniel Soto, [address] [place], [address]. tel:[phone] [facility], [address] [id number] 860763CY-[place], [address], [place] tel:[phone] [facility] Dental examination Breana Armstrong. [address] [place], [address], [place]. tel:[phone] Referring Provider: Nathaniel Soto, [address] [place], [address]. tel:[phone] [facility], [id number]-Md [facility], [place], [place], [address], tel:[phone] [facility] Dental examination Breana Armstrong. [address], [place], [address], [place]. tel:[phone] Referring Provider: [place], [address]. tel:[phone] Family History Family Member Type Diagnosis Age At Onset Father Problem (finding) alcoholism Grandparents Problem (finding) depression Father Problem (finding) hypertension Brother Problem (finding) alcoholism Father Problem (finding) asthma Payers Payer name Insurance type Covered green party ID rob kitred(s) D Medicaid [id number] Social History Type Description Quantity Date Captured Comments Alcohol Use Details No Caffeine Use Details No Tobacco Use Status Smoking Status No Information Sex Female Chief Complaint And Reason For Visit No Information Reason For Referral Reason For Referral No Information Plan Of Treatment Date Type Action Status 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 Due on due Goal Breast exam. Due on 011 due Goal H&P. Due on due Goal PAP. Due on due Goal TD Vaccine. Due on 11 due Goal Foot Exam. Due on 1 [...]
--- OUTSIDE RECORDS SUMMARY | 2025-01-02 19:39 | XMS_ITS | Encounter Summary ---
Author Organization [facility] Address [address] [place] [address] Care Team Providers Care Belt Changer Name Role Phone Sally Dong MD Primary Care Provider [phone] Reason for Visit * Reason Comments Back Pain Encounter Details Date Type Department Care Team (Late st Contact Info) Description 01/02/2025 7:39 PM CDT - 01/02/2025 7:55 PM CDT Emergency [facility] Emergency Medicine [address] [place] [id number] Discharge Disposition: Left without being seen Social History Tobacco Use Types Packs/Day Years Used Date Smoking Tobacco: Every Day Cigarettes Smokeless Tobacco: Never Alcohol Use Standard Drinks/Week Comments Not Currently 0 (1 standard drink = 0.6 oz pur e alcohol) Comments No Sex and Gender Information Value Date Recorded Sex Assigned at Female 03/25/2024 4:14 PM CDT 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 Gender Identity Female 03/25/2024 4:14 PM CDT Sexual Orientation Not on file documented as of this encounter Last Filed Vital Signs Vital Sign Reading Time Taken Comments Blood Pressure 101/63 01/02/2025 7:35 PM CDT Pulse - - Temperature 36.4 C (97.5 F) 01/02/2025 7:35 PM CDT Respiratory Rate 17 01/02/2025 7:35 PM CDT Oxygen Saturation 98% 01/02/2025 7:35 PM CDT Inhaled Oxygen Concentration - - Weight 83.8 kg (184 lb 12.8 oz) 01/02/2025 7:35 PM CDT Height 157.5 cm (5' 2 ) 01/02/2025 7:35 PM CDT Body Mass Index 33.8 01/02/2025 7:35 PM CDT documented in this encounter Medications at Time of Discharge acetaminophen (TYLENOL ARTHRITIS) 650 mg Extended Release tablet Take 650 mg by mouth every 6 hours as needed for Pain. lidocaine (LIDODERM) 5 % Adhesive Patch, Medicated Apply 1 Patch to affected area every 24 hours. 30 Patch 5 cyclobenzaprine (FLEXERIL) 5 mg Tablet Take 1 Tablet (5 mg) by mouth every 8 hours as needed for Pain. May cause drowsiness. No driving or operating dangerous machinery or activies 4 Tablet 5 01/07/20 25 diphenoxylate-atro pine 2.5 mg-0.025 mg tablet Take 1 Tablet by mouth 4 times daily as needed for Diarrhea/Loose Stools. 30 Tablet 5 methylPREDNISolone (MEDROL DOSPACK) 4 mg Tablets, Dose Pack Take as directed 21 Tablet 5 HYDROcodone-acetam inophen (NORCO) 5-325 mg tabletIndications: Lumbar radiculopathy Take 1-2 Tablets by mouth every 6 hours as needed for Pain. Max Daily Amount: 8 Tablets 30 Tablet 5 naloxone (NARCAN) 4 mg/spray [place], Non-Aerosol EMERGENCY USE ONLY: Administer 1 spray (4 mg) in one nostril one time. May repeat in alternating nostrils every 2-3 min until responsive or EMS arrives. 2 Each 3 5 HYDROcodone-acetam inophen (NORCO) 5-325 mg tabletIndications: Lumbar radiculopathy Take 1-2 Tablets by mouth every 6 hours as needed for Pain. Max Daily Amount: 8 Tablets 4 Tablet 5 promethazine (PHENERGAN) 25 mg tablet Take [...] as of this encounter ED Notes * Mindy Zambrano RN - 01/02/2025 7:54 PM CDT Patient stated that she wanted to wait and call PCP shortly after triage. AMA form signed. * Mindy Zambrano RN - 01/02/2025 7:40 PM CDT Patient arrives POV ambulatory with steady gait for c/o right lower back pain that radiates down posterior right leg. Patient states that she has sciatica and uses hempvanna cream for pain. Patient to start physical therapy for sciatica next week. documented in this encounter Plan of Treatment Not on file documented as of this encounter Visit Diagnoses Not on filedocumented in this encounter Additional Health Concerns Assessment Noted Time PHQ-9 Depression Total Score: 3 10/01/19 23 4:46 PM CDT documented as of this encounter Care Teams Belt Changer Relationship Specialty Start Date End Date Sally Dong MD [address] [id number] PCP - General Family Practice 04/07/22 documented as of this encounter
[2025-01-05 22:07] VITALS: BP 92/56; PULSE 75; RESP 16; TEMP 36.5; O2SAT 97; BMI 29.8
--- OUTSIDE RECORDS SUMMARY | 2025-01-05 22:10 | XMS_ITS | Clinical Summary ---
Author Organization [facility] Address [address] [place] [address] Care Team Providers Care Senior Advocate Name Role Phone Sally Dong MD Primary Care Provider [phone] Allergies Active Allergy Reactions Criticality Noted Date Comments Adhesive Rash Low 02/12/2009 Codeine Nausea and Vomiting Low 02/12/2009 Duloxetine Other (See Comments) 02/24/2015 Fentanyl Hives High 11/07/2019 Fluoxetine Unknown 10/20/2018 Gabapentin Unknown,Hallucination Low 02/12/2009 Haloperidol Unknown 01/04/2022 Tardive dyskinesia Ketorolac Tromethamine Other (See Comments) Low Adverse drug reaction [place] Unknown 02/12/2009 Other reaction(s): shakey Metoclopramide Hcl [...] but sooner if necessary. 8.5 Gram 0 01/24/20 20 Active pantoprazole (PROTONIX) 40 mg Tablet, Delayed Release (E.C.) Take 40 mg by mouth 2 times daily. 02/07/20 18 Active traZODone (DESYREL) 100 mg tablet Take [...] needed for nausea or vomiting 20 Tablet 12/03/19 24 Active lubiprostone (AMITIZA) 8 mcg Capsule Take [...] as needed for Nausea/Emesis. 10 Suppository 1 07/27/19 25 Active famotidine (PEPCID) 20 mg tablet Take 20 mg by mouth 2 times daily. Active promethazine (PHENERGAN) 25 mg tablet Take 25 mg by mouth every 6 hours as needed for Nausea/Emesis. Active methylPREDNISolon e (MEDROL DOSPACK) 4 mg Tablets, Dose Pack Take as directed 21 Tablet 11/23/19 25 Active HYDROcodone-aceta minophen (NORCO) 5-325 mg tabletIndications :Lumbar radiculopathy Take 1-2 Tablets by mouth every 6 hours as needed for Pain. Max Daily Amount: 8 Tablets 30 Tablet 11/23/19 25 Active naloxone (NARCAN) 4 mg/spray Redfox, Non-Aerosol EMERGENCY USE ONLY: Administer 1 spray (4 mg) in one nostril one time. May repeat in alternating nostrils every 2-3 min until responsive or EMS arrives. 2 Each 3 11/23/19 25 Active HYDROcodone-aceta minophen (NORCO) 5-325 mg tabletIndications :Lumbar radiculopathy Take 1-2 Tablets by mouth every 6 hours as needed for Pain. Max Daily Amount: 8 Tablets 4 Tablet 11/23/19 25 Active diphenoxylate-atr opine 2.5 mg-0.025 mg tablet Take 1 Tablet by mouth 4 times daily as needed for Diarrhea/Loose Stools. 30 Tablet 12/20/19 25 Active acetaminophen (TYLENOL ARTHRITIS) 650 mg Extended Release tablet Take 650 mg by mouth every 6 hours as needed for Pain. Active lidocaine (LIDODERM) 5 % Adhesive Patch, Medicated Apply 1 Patch to affected area every 24 hours. 30 Patch 12/28/19 25 Active cyclobenzaprine (FLEXERIL) 5 mg Tablet Take 1 Tablet (5 mg) by mouth every 8 hours as needed for Pain. May cause drowsiness. No driving or operating dangerous machinery or activies 4 Tablet 12/28/19 25 025 Active Active Problems Problem Noted Date Diagnosed Date [...] Hematochezia 07/07/2009 10/26/2012 Personal history of MRSA (ak thicillin resistant Staphylococcus aureus) 06/27/2009 018 Overview (10/14/2020): Under the arm abscess ~ 2015 Fever and chills 02/12/2009 10/26/2012 Hypoxemia 02/12/2009 04/06/2014 Encounters Date Type Department Care Team Description 01/02/2025 7:39 PM CDT - 01/02/2025 7:55 PM CDT Emergency [facility] Emergency Medicine [address] [place] [address] Discharge Disposition: Left without being seen 12/27/2024 4:43 PM CDT - 12/27/2024 6:58 PM CDT Emergency [facility] Emergency Medicine [address] [place] [address] Johnathan Andres DO Acute right-sided low back pain with right-sided sciatica (Primary Dx) Discharge Disposition: Home or Self Care 12/19/2024 5:02 PM CDT - 12/19/2024 9:04 PM CDT [facility] Emergency Medicine [address] [facility] [address] [place] [address] Sanju Montero DO Sindlinger, Timothy S, MD Chronic abdominal pain (Primary Dx); Chronic diarrhea Discharge Disposition: Home or Self Care 12/19/2024 5:48 AM CDT - 12/19/2024 11:59 PM CDT [facility] Emergency Medical Services [place] [address] [facility] [address] [place] [phone] Ambulance, [facility] Discharge Disposition: [facility] 12/17/2024 External Device Data STL ABSTRACTION Provider, Abstract 12/12/2024 6:58 PM CDT - 12/12/2024 7:58 PM CDT [place] [address] [facility] [address] [place] [phone] Sea Leon MD Generalized abdominal pain (Primary Dx) Discharge Disposition: Home or Self Care 12/11/2024 6:40 PM CDT - 12/11/2024 7:23 PM CDT [place] [address] [place] [phone] Tommy Matthews MD Sciatica of right side (Primary Dx) Discharge Disposition: Home or Self Care 12/06/2024 7:06 PM CDT - 12/06/2024 7:56 PM CDT [facility] Emergency [place] [address] [facility] [address] [place] [phone] Mohinder Dumont DO Chronic right-sided back pain, unspecified back location (Primary Dx) Discharge Disposition: Home or Self Care 12/06/2024 Travel 12/04/2024 8:36 PM CDT - 12/04/2024 10:43 PM CDT [facility] Emergency Medicine [facility] [address] [place] [address] Tim Mohinderdawn Jordan DO Contusion of right hip, initial encounter (Primary Dx) Discharge Disposition: Home or Self Care 12/04/2024 Travel 12/03/2024 Orders Only [facility] Admitting [address] [facility] [address] [place] [address] Dara Tavera, CARE COMPANION Low back pain with bilateral sciatica, unspecified back pain laterality, unspecified chronicity (Primary Dx) 11/30/2024 9:21 PM CDT - 11/30/2024 11:07 PM CDT Emergency [facility] Emergency Medicine [address] [place] [address] Sea Leon MD Generalized abdominal pain (Primary Dx) Discharge Disposition: Home or Self Care 11/30/2024 Travel 11/27/2024 12:15 AM CDT - 11/27/2024 11:59 PM CDT Hospital Encounter [place] [address] [place] [phone] Ambulance, [facility] Discharge Disposition: [facility] 11/22/2024 6:27 PM CDT - 11/22/2024 8:53 PM CDT Emergency [facility] Medicine [address] [place] [address] Tommy Matthews MD Lumbar radiculopathy (Primary Dx) Discharge Disposition: Home or Self Care 11/21/2024 3:14 PM CDT - 11/21/2024 11:59 PM CDT Hospital Encounter [facility] [address] [facility] [address] [place] [address] Dara Tavera, CARE COMPANION Discharge Disposition: Home or Self Care 11/17/2024 12:15 AM CDT - 11/17/2024 11:59 PM CDT Hospital Encounter [facility] [address] [phone] Ambulance, [facility] Discharge Disposition: [facility] 11/14/2024 6:04 PM CDT - 11/14/2024 7:31 PM CDT Emergency [facility] Emergency Medicine [address] [facility] [address] [place] [address] Corinna Sarabia MD Starnes, Sea Aragon MD Chronic generalized abdominal pain (Primary Dx); Wheezing on expiration; Nausea Discharge Disposition: Home or Self Care 11/08/2024 7:49 PM CDT - 11/08/2024 10:30 PM CDT Emergency [facility] Emergency Medicine [address] [facility] [address] [place] [address] Tommy Matthews MD Chest pain, unspecified type (Primary Dx); Chronic diarrhea Discharge Disposition: Home or Self Care 11/08/2024 6:00 PM CDT - 11/08/2024 11:59 PM CDT Hospital Encounter [facility] [address] [place] [address] Ambulance, [facility] Discharge Disposition: [facility] 11/08/2024 Travel 11/03/2024 11:40 AM CDT - 11/03/2024 11:59 PM CDT Hospital Encounter [facility] [address] [place] [address] Ambulance, [facility] Discharge Disposition: [facility] 10/27/2024 5:50 AM CDT - 10/27/2024 11:59 PM CDT Hospital Encounter [facility] [address] [place] [address] Ambulance, [facility] Discharge Disposition: [facility] 10/25/2024 9:06 PM CDT - 10/25/2024 9:52 PM CDT Emergency [facility] Emergency Medicine [address] [facility] [address] [place] [address] Tommy Matthews MD Nausea and vomiting, unspecified vomiting type (Primary Dx); Chronic abdominal pain Discharge Disposition: Home or Self Care 10/20/2024 8:20 AM CDT - 10/20/2024 11:59 PM CDT Hospital Encounter [facility] Emergency Medical Services [place] [address] [place] [phone] Ambulance, [facility] Discharge Disposition: Home or Self Care 10/19/2024 5:49 PM CDT - 10/19/2024 6:34 PM CDT Emergency [facility] Emergency Medicine [address] [facility] [address] [place] [phone] Corinna Sarabia MD Irritable bowel syndrome with both constipation and diarrhea (Primary Dx) Discharge Disposition: Home or Self Care 10/19/2024 Travel 10/15/2024 Results Follow-Up [facility] Emergency [facility] [address] [facility] [address] [place] [phone] Brittaney Schmitt RN URINE CULTURE 10/11/2024 4:41 PM CDT - 10/11/2024 9:28 PM CDT Emergency [facility] [address] [facility] [address] [place] [phone] Marisela Kemp MD Hennon, Marcus, Left lower quadrant abdominal pain (Primary Dx) Discharge Disposition: Home or Self Care 10/11/2024 Travel from Last 3 Months Immunizations Immunization [...] PM CDT Legal Sex Female 2:06 AM FINANCIAL AID Gender Identity Female 03/25/2024 4:14 PM CDT Sexual Orientation Not on file Last Filed Vital Signs Vital Sign Reading Time Taken Comments Blood Pressure 101/63 01/02/2025 7:35 PM CDT Pulse 82 12/27/2024 6:45 PM CDT Temperature 36.4 C (97.5 F) 01/02/2025 7:35 PM CDT Respiratory Rate 17 01/02/2025 7:35 PM CDT Oxygen Saturation 98% 01/02/2025 7:35 PM CDT Inhaled Oxygen Concentration - - Weight 83.8 kg (184 lb 12.8 oz) 01/02/2025 7:35 PM CDT Height 157.5 cm (5' 2 ) 01/02/2025 7:35 PM CDT Body Mass Index 33.8 01/02/2025 7:35 PM CDT Plan of Treatment Health Maintenance [...] Colorectal Cancer Screening 01/12/2022 INFLUENZA VACCINE (#1) 2025 4, 02/17/2013, 03/07/2012, Additional history exists COVID-19 Vaccine Completed 05/08/2024, 09/24/2020 Procedures Procedure Name Priority Date/Time Associated Diagnosis Comments CT ABDOMEN PELVIS W CONTRAST Stat 12/19/2024 7:07 PM CDT COMPREHENSIVE METABOLIC PANEL Stat 12/19/2024 4:16 PM CDT CBC WITH DIFFERENTIAL Stat 12/19/2024 4:16 PM CDT XR HIP 2 OR 3 VIEWS RT [...] METABOLIC PANEL Stat 10/11/2024 6:55 PM CDT HEMOGLOBIN A1C Routine 06/17/2018 7:12 AM FINANCIAL AID from Last 3 Months or Most Recently Relevant to Health Maintenance Results * CT ABDOMEN PELVIS W CONTRAST (12/19/2024 7:07 PM CDT) Anatomical Region Laterality Modality Abdomen Computed Tomogra phy 12/19/2024 6:55 PM CDT Impressions 12/19/2024 7:41 PM CDT IMPRESSION: Please see below. Exam: CT ABDOMEN PELVIS W CONTRAST Date/Time of Exam: 12/19/2024 7:07 PM Reason For Exam: Abdominal pain, acute, nonlocalized. Diagnosis: See Reason for Exam. Technique: CT of the abdomen and pelvis was performed following the administration of intravenous contrast. Contrast: IOPAMIDOL 61 % INTRAVENOUS SOLUTION (SINGLE USE VIAL) Given:95 mL. Comparison: 07/27/2024. FINDINGS: Lower Chest: There is no significant basilar pulmonary pathology. Aorta/Vasculature: The aorta is nonaneurysmal. Lymph Nodes: There is no retroperitoneal, abdominal or pelvic lymphadenopathy. Liver: The liver is within normal limits. Gallbladder and Biliary: The gallbladder is surgically absent. There is no biliary ductal dilatation. Spleen: The spleen is within normal limits. Pancreas: The pancreas is within normal limits. Adrenal Glands: The adrenal glands are within normal limits. Kidneys: The renal parenchyma is within normal limits. There is a 0.6 cm calculus within the inferior pole of the right kidney. There is no obstructive uropathy. Stomach: The stomach is within normal limits. Bowel: The bowel loops are normal in position and caliber. There is a large amount of stool. There are no focal inflammatory changes. Appendix: The appendix is not definitively visualized. There are no secondary signs of acute appendicitis. Peritoneum: There is no free air or abnormal free fluid. Urinary Bladder: The urinary bladder is within normal limits. Pelvic Reproductive Structures: There is no significant pelvic reproductive structure pathology status post hysterectomy. Subcutaneous Soft Tissues: There is no significant subcutaneous soft tissue pathology. Bones: The osseous structures appear grossly intact. No suspicious osseous lesions are identified. IMPRESSION: No acute abdominopelvic pathology. Incidental findings as above. Narrative Procedure Note Michael Peck DO - 12/19/2024 IMPRESSION: Please see below. Exam: CT ABDOMEN PELVIS W CONTRAST Date/Time of Exam: 12/19/2024 7:07 PM Reason For Exam: Abdominal pain, acute, nonlocalized. Diagnosis: See Reason for Exam. Technique: CT of the abdomen and pelvis was performed following the administration of intravenous contrast. Contrast: IOPAMIDOL 61 % INTRAVENOUS SOLUTION (SINGLE USE VIAL) Given:95 mL. Comparison: 07/27/2024. FINDINGS: Lower Chest: There is no significant basilar pulmonary pathology. Aorta/Vasculature: The aorta is nonaneurysmal. Lymph Nodes: There is no retroperitoneal, abdominal or pelvic lymphadenopathy. Liver: The liver is within normal limits. Gallbladder and Biliary: The gallbladder is surgically absent. There is no biliary ductal dilatation. Spleen: The spleen is within normal limits. Pancreas: The pancreas is within normal limits. Adrenal Glands: The adrenal glands are within normal limits. Kidneys: The renal parenchyma is within normal limits. There is a 0.6 cm calculus within the inferior pole of the right kidney. There is no obstructive uropathy. Stomach: The stomach is within normal limits. Bowel: The bowel loops are normal in position and caliber. There is a large amount of stool. There are no focal inflammatory changes. Appendix: The appendix is not definitively visualized. There are no secondary signs of acute appendicitis. Peritoneum: There is no free air or abnormal free fluid. Urinary Bladder: The urinary bladder is within normal limits. Pelvic Reproductive Structures: There is no significant pelvic reproductive structure pathology status post hysterectomy. Subcutaneous Soft Tissues: There is no significant subcutaneous soft tissue pathology. Bones: The osseous structures appear grossly intact. No suspicious osseous lesions are identified. IMPRESSION: No acute abdominopelvic pathology. Incidental findings as above. Sanju Montero DO CT ORDERABLES Final Result * (ABNORMAL) CBC WITH DIFFERENTIAL (12/19/2024 4:16 PM CDT) Only the most recent of3 resultswithin the time period is included. WBC 7.6 4.0 - 10.0 K/uL 12/19/2024 4:45 PM CDT [facility] RBC 3.85(L) 3.93 - 5.22 M/uL 12/19/2024 4:45 PM [facility] HEMOGLOBIN 12.9 11.2 - 15.7 g/dL 12/19/2024 4:45 PM [facility] HEMATOCRIT 37.4 34.1 - 44.9 % 12/19/2024 4:45 PM [facility] MCV 97.1(H) 79.4 - 94.8 fL 12/19/2024 4:45 PM [facility] MCH 33.5(H) 25.6 - 32.2 pg 12/19/2024 4:45 PM [facility] MCHC 34.5 32.2 - 35.5 g/dL 12/19/2024 4:45 PM [facility] RDW 14.2 11.0 - 14.5 % 12/19/2024 4:45 PM [facility] RDW-STDEV 50.7 36.9 - 56.9 fL 12/19/2024 4:45 PM [facility] PLATELETS 196 163 - 337 K/uL 12/19/2024 4:45 PM [facility] MPV 10.1 10.0 - 14.8 fL 12/19/2024 4:45 PM [facility] NEUTROPHILS 53 34 - 71 % 12/19/2024 4:45 PM [facility] LYMPHOCYTES 34 19 - 52 % 12/19/2024 4:45 PM [facility] MONOCYTES 10 5 - 13 % 12/19/2024 4:45 PM [facility] EOSINOPHILS 2 1 - 6 % 12/19/2024 4:45 PM [facility] BASOPHILS 1 0 - 1 % 12/19/2024 4:45 PM [facility] IMMATURE GRANULOCYTES 0 % 12/19/2024 4:45 PM [facility] NEUTROPHIL ABSOLUTE 4.02 1.56 - 6.13 K/uL 12/19/2024 4:45 PM [facility] LYMPHOCYTE ABSOLUTE 2.62 1.20 - 3.40 K/uL 12/19/2024 4:45 PM [facility] MONOCYTE ABSOLUTE 0.74(H) 0.24 - 0.36 K/uL 12/19/2024 4:45 PM CDT [facility] EOSINOPHIL ABSOLUTE 0.17 0.04 - 0.36 K/uL 12/19/2024 4:45 PM CDT [facility] BASOPHILS ABSOLUTE 0.06 0.01 - 0.08 K/uL 12/19/2024 4:45 PM CDT [facility] IMMATURE GRANULOCYTES ABSOLUTE 0.02 K/uL 12/19/2024 4:45 PM [facility] Blood BLOOD SPECIMEN / Unknown Collection / Unknown 12/19/2024 4:16 PM CDT 12/19/2024 4:41 PM CDT us Sanju Montero DO HEMATOLOGY ORDERABLES Final [id number] [address] [place] [address] * (ABNORMAL) COMPREHENSIVE METABOLIC PANEL (12/19/2024 4:16 PM CDT) Only the most recent of3 resultswithin the time period is included. SODIUM 138 136 - 145 mmol/L 12/19/2024 4:57 PM [facility] POTASSIUM 4.0 3.5 - 5.1 mmol/L 12/19/2024 4:57 PM [facility] CHLORIDE 105 98 - 107 mmol/L 12/19/2024 4:57 PM [facility] CO2 21(L) 22 - 29 mmol/L 12/19/2024 4:57 PM [facility] CALCIUM 9.6 8.6 - 10.0 mg/dL 12/19/2024 4:57 PM [facility] BUN 15 6 - 20 mg/dL 12/19/2024 4:57 PM [facility] CREATININE 0.98(H) 0.51 - 0.95 mg/dL 12/19/2024 4:57 PM [facility] GLUCOSE 102(H) 74 - 99 mg/dL 12/19/2024 4:57 PM [facility] TOTAL PROTEIN 6.9 6.6 - 8.7 g/dL 12/19/2024 4:57 PM [facility] ALBUMIN 4.1 3.5 - 5.2 g/dL 12/19/2024 4:57 PM [facility] BILIRUBIN TOTAL <0.2 0.0 - 1.2 mg/dL 12/19/2024 4:57 PM T [facility] ALKALINE PHOSPHATASE 108(H) 35 - 104 U/L 12/19/2024 4:57 PM [facility] AST 16 0 - 35 U/L 12/19/2024 4:57 PM [facility] ALT 10 0 - 35 U/L 12/19/2024 4:57 PM [facility] GFR >60 >=60 mL/min/1.7 3 sq meter 12/19/2024 4:57 PM [facility] Comment:eGFR calculated with 2020 CKD-EPI equation. Vegetarian diet, extremely high or low muscle mass, and may affect results. Cystatin C with Glomerular Filtration Rate is a suitable alternative for these patients. ANION GAP 12 5 - 20 mmol/L 12/19/2024 4:57 PM T [facility] Blood BLOOD SPECIMEN / Unknown Collection / Unknown 12/19/2024 4:16 PM CDT 12/19/2024 4:41 PM CDT Sanju Montero DO CHEMISTRY ORDERABLES Final Re sult [facility] CLIA # [id number] [address] [place] [address] * XR HIP 2 OR 3 VIEWS [...] hemipelvis. IMPRESSION: No acute radiographic abnormality. Mohinder Jordan Keller DO DIAGNOSTIC IMAGING ORDERA BLES Final Result [...] thoracolumbar spine, similar to the prior examination. us Dara Tavera CARE COMPANION DIAGNOSTIC IMAGING ORDERABL ES Final Result * TROPONIN 2 HR, 5TH GEN (11/08/2024 9:51 PM CDT) TROPONIN T, 2 HR 5TH GEN <6 <=10 ng/L 11/08/2024 10:14 PM CDT [facility] Blood BLOOD SPECIMEN / Unknown Collection / Unknown 11/08/2024 9:51 PM CDT 11/08/2024 9:53 PM CDT Narrative [facility] - 11/08/2024 10:14 PM CDT Troponin Undetectable Unable to calculate delta. us Tommy Matthews MD CHEMISTRY ORDERABLES Fin al Result [facility] CLIA # [id number] [address] [place] [address] * XR CHEST PA OR AP 1 [...] abnormality is appreciated. IMPRESSION: Mild vascular congestion. Tommy Matthews MD DIAGNOSTIC IMAGING ORDER KAYLEE Final Result * EXTRA TUBE (BLUE) (11/08/2024 7:58 PM CDT) Blood BLOOD SPECIMEN / Unknown Collection / Unknown 11/08/2024 7:58 PM CDT 11/08/2024 8:05 PM CDT Tommy Matthews MD HEMATOLOGY ORDERABLES Fi nal Result [facility] CLIA # [id number] [address] [place] [address] * TROPONIN BASELINE, 5TH GEN (11/08/2024 7:58 PM CDT) TROPONIN T, BASELINE 5TH GEN <6 <=10 ng/L 11/08/2024 8:24 PM CDT [facility] Blood BLOOD SPECIMEN / Unknown Collection / Unknown 11/08/2024 7:58 PM CDT 11/08/2024 8:05 PM CDT Narrative [facility] - 11/08/2024 8:24 PM CDT Troponin Undetectable Tommy Matthews MD CHEMISTRY ORDERABLES Fin al Result Performing Organization Address City/[facility]/ZIP Co de Phone Number [facility] CLIA # [id number] [address] [place] [address] * (ABNORMAL) BRAIN NATRIURETIC PEPTIDE, BNP OR PROBNP (11/08/2024 7:58 PM CDT) PROBNP, N TERMINAL 229(H) 0 - 125 pg/mL 11/08/2024 9:05 PM CDT [facility] Comment: INTERPRETIVE COMMENT based on diagnosis: [...] 11/08/2024 8:05 PM CDT Tommy Matthews MD CHEMISTRY ORDERABLES Fin al Result [facility] CLIA # [id number] [address] [place] [address] * (ABNORMAL) URINALYSIS WITH REFLEX CULTURE (10/11/2024 8:45 PM CDT) COLOR UA Yellow Pale to Dark Yellow 10/11/2024 8:57 PM CDT [facility] CLARITY UA Clear Clear 10/11/2024 8:57 PM CDT [facility] SPECIFIC GRAVITY UA 1.010 1.003 - 1.035 10/11/2024 8:57 PM CDT [facility] PH UA 6.5 5.0 - 8.0 10/11/2024 8:57 PM CDT [facility] LEUKOCYTE ESTERASE UA 1+(A) Negative 10/11/2024 8:57 PM CDT [facility] NITRITE UA Negative Negative 10/11/2024 8:57 PM CDT [facility] PROTEIN UA Negative Negative 10/11/2024 8:57 PM CDT [facility] GLUCOSE UA Negative Negative 10/11/2024 8:57 PM CDT [facility] KETONES UA Negative Negative 10/11/2024 8:57 PM CDT [facility] UROBILINOGEN UA 0.2 <2.0 mg/dL 8:57 PM CDT [facility] BILIRUBIN UA Negative Negative 10/11/2024 8:57 PM CDT [facility] BLOOD UA Negative Negative 10/11/2024 8:57 PM CDT [facility] Urine URINE SPECIMEN OBTAINED BY CLEAN CATCH PROCEDURE / Unknown Collection / Unknown 10/11/2024 8:45 PM CDT 10/11/2024 8:48 PM CDT Narrative [facility] - 10/11/2024 8:57 PM CDT Based on results, a urine culture has been reflexed. us Marisela Kemp MD URINE ORDERABLES Final Resul t [facility] CLIA # [id number] [address] [place] [address] * (ABNORMAL) URINALYSIS MICROSCOPY ONLY (10/11/2024 8:45 PM CDT) WBC UA 3-5(A) 0 - 2 /hpf 10/11/2024 8:57 PM CDT [facility] RBC UA 0-2 0 - 2 /hpf 10/11/2024 8:57 PM CDT [facility] BACTERIA UA 1+(A) Negative /hpf 10/11/2024 8:57 PM CDT [facility] EPITHELIAL CELLS, URINE 6-10(A) 0 - 5 /hpf 10/11/2024 8:57 PM CDT [facility] Urine URINE SPECIMEN OBTAINED BY CLEAN CATCH PROCEDURE / Unknown Collection / Unknown 10/11/2024 8:45 PM CDT 10/11/2024 8:48 PM CDT Marisela Kemp MD URINE ORDERABLES Final Resul t [facility] CLIA # [id number] [address] [place] [address] * URINE CULTURE (10/11/2024 8:45 PM CDT) CULTURE Polymicrobial growth consistent with normal urethral tonia and/or colonizing bacteria 10/13/2024 11:10 AM CDT [facility] Urine URINE SPECIMEN OBTAINED BY CLEAN CATCH PROCEDURE / Unknown Collection / Unknown 10/11/2024 8:45 PM CDT 10/11/2024 8:50 PM CDT Marisela Kemp MD MICROBIOLOGY - GENERAL ORDER KAYLEE Final Result [facility] CLIA # [id number] [address] [place] [address] * LIPASE (10/11/2024 6:55 PM CDT) LIPASE 20 13 - 60 U/L 10/11/2024 7:24 PM CDT [facility] Blood BLOOD SPECIMEN / Unknown Collection / Unknown 10/11/2024 6:55 PM CDT 10/11/2024 7:04 PM CDT Marisela Kemp MD CHEMISTRY ORDERABLES Final R esult [id number] [address] [place] [address] * HEMOGLOBIN A1C (06/17/2018 7:12 AM FINANCIAL AID) HEMOGLOBIN A1C 5.2 4.8 - 5.9 % 06/17/2018 9:37 AM FINANCIAL AID [facility] EST. AVG GLUCOSE, A1C 103 mg/dL 06/17/2018 9:37 AM FINANCIAL AID [facility] Blood Venipuncture / Unknown 06/17/2018 7:12 AM FINANCIAL AID 06/17/2018 7:13 AM FINANCIAL AID Narrative [facility] - 06/17/2018 9:37 AM FINANCIAL AID If not available from last three months. HGB A1C INTERPRETATION NORMAL: <5.7% PRE-DIABETES: 5.7 - 6.4% DIABETES: 6.5% OR GREATER us Benedicto Mcgill MD CHEMISTRY ORDERABLES Final Result Performing Organization Address City/[facility] Co de Phone Number [facility] [id number] [address] [place] [address] [facility] [id number] [address] [place] [address] from Last 3 Months or Most Recently Relevant to Health Maintenance Insurance [place] DUAL COMPLETE HMO [facility] [id number] [place] Advance Directives For more information, please contact: [phone] Documents on File Type Date Recorded Patient Primary Teacher Expl anation Advance Directive POA 02/23/2024 3:51 [...] 1:52 AM 10/27/2021 2:07 PM Care Teams Senior Advocate Relationship Specialty Start Date End Date Sally Dong MD [address] [facility] [address] [place] [id number] PCP - General Family Practice 04/07/22
[2025-01-05] MEDS: HYDROmorphone 0.5 MG/0.5 ML INJ 2 MG IM (23:38)
[2025-01-06 00:21] VITALS: BP 114/78; PULSE 72; RESP 16; O2SAT 95
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
== END 2025-01-06 00:19 | disposition home or self-care (01) ==
PROVIDERS: Emergency Provider Student in an Organized Health Care Education/Training Program; PCP Registered Nurse
DX: S16.1XXA Strain of muscle, fascia and tendon at neck level, initial encounter (principal); J44.9 Chronic obstructive pulmonary disease, unspecified; Z79.899 Other long term (current) drug therapy; G89.29 Other chronic pain; V00.831A Fall from motorized mobility scooter, initial encounter; Y92.480 Sidewalk as the place of occurrence of the external cause; Z88.2 Allergy status to sulfonamides; Z88.0 Allergy status to penicillin; Z88.8 Allergy status to other drugs, medicaments and biological substances; Z88.5 Allergy status to narcotic agent
CPT/HCPCS: 96372; 99284; J1171

== ENCOUNTER 2025-02-09 22:35 | Emergency (ER) | payer OTHER, MEDICAID, SELFPAY ==
--- OUTSIDE RECORDS SUMMARY | 2025-02-01 17:38 | XMS_ITS | Encounter Summary ---
Author Organization [facility] Address [address] [place] [address] Care Team Providers Care Senior Asset Manager Name Role Phone Sally Dong MD Primary Care Provider [phone] Reason for Visit * Reason Comments Chest Pain Nausea Encounter Details Date Type Department Care Team (Late st Contact Info) Description 02/01/2025 5:38 PM CDT - 02/01/2025 7:27 PM CDT Emergency [facility] Emergency Medicine [address] [place], [place] [address]Y [address] [place] [id number] Tommy Matthews MD [address] [place] [address] [place] [address] Abdominal pain, unspecified abdominal location (Primary Dx); Chest pain, unspecified type Discharge Disposition: Home or Self Care Social [...] asked 05/05/2019 How often do you attend religion or druze serv ices? Not asked 05/05/2019 Do you belong to any clubs o r organizations such as religion groups, unions, [employer] or athletic groups, or school groups? Not [...] who hurts you emotionally and/or physically? 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 Gender Identity Female 03/25/2024 4:14 PM CDT Sexual Orientation Not on file documented as of this encounter Last Filed Vital Signs Vital Sign Reading Time Taken Comments Blood Pressure 107/72 02/01/2025 6:45 PM CDT Pulse 72 02/01/2025 6:45 PM CDT Temperature 36.4 C (97.5 F) 02/01/2025 5:41 PM CDT Respiratory Rate 19 02/01/2025 6:45 PM CDT Oxygen Saturation 93% 02/01/2025 6:45 PM CDT Inhaled Oxygen Concentration - - Weight 77.3 kg (170 lb 8 oz) 02/01/2025 5:41 PM CDT Height 157.5 cm (5' 2 ) 02/01/2025 5:41 PM CDT Body Mass Index 31.18 02/01/2025 5:41 PM CDT documented in this encounter Discharge Instructions * Discharge Instructions* Sea Leon MD - 02/01/2025 7:11 PM CDT Follow-up with your primary care provider as needed return to the emergency department for any new or worsening symptoms * Attachments The following attachments cannot be sent through Care Everywhere. * Abdominal Pain ([place]) documented in this encounter Medications at Time of Discharge acetaminophen (TYLENOL) 500 mg tablet Take 1,000 mg by mouth every 6 hours as needed. vortioxetine (Trintellix) 5 mg tablet Take 5 mg by mouth daily. acetaminophen (TYLENOL ARTHRITIS) 650 mg Extended Release tablet Take 650 mg by mouth every 6 hours as needed for Pain. diphenoxylate-at ropine 2.5 mg-0.025 mg tablet Take 1 Tablet by mouth 4 times daily as needed for Diarrhea/Loose Stools. 30 Tablet 12/19/2024 naloxone (NARCAN) 4 mg/spray [place], Non-Aerosol EMERGENCY USE ONLY: Administer 1 spray (4 mg) in one nostril one time. May repeat in alternating nostrils every 2-3 min until responsive or EMS arrives. 2 Each 3 11/22/2024 promethazine (PHENERGAN) 25 mg tablet Take 25 mg by mouth every 6 hours as needed for Nausea/Emesis. famotidine (PEPCID) 20 mg tablet Take 20 mg by mouth 2 times daily. prochlorperazine (COMPAZINE) 25 mg Suppository Insert 1 Suppository (25 mg) by rectum every 12 hours as needed for Nausea/Emesis. 10 Suppository 1 07/27/2024 sucralfate (CARAFATE) 1 gram tablet Take 1 Gram by mouth 2 times daily. diphenhydrAMINE (BENADRYL) 25 mg tablet Take 50 mg by mouth every 8 hours as needed for Allergies. lubiprostone (AMITIZA) 8 mcg Capsule Take 24 mcg by mouth 2 times daily with meals. ondansetron (ZOFRAN ODT) 8 mg Tablet, Rapid Dissolve Dissolve 1 tablet on top of tongue then swallow with saliva every 8 hours as needed for nausea or vomiting 20 Tablet 12/03/2023 QUEtiapine (SEROquel) 25 mg tablet Take 50 [...] but sooner if necessary. 8.5 Gram 0 01/24/2020 pantoprazole (PROTONIX) 40 mg Tablet, Delayed Release (E.C.) Take 40 mg by mouth 2 times daily. 02/06/2018 documented as of this encounter Progress Notes * Iman Lerma RCP - 02/01/2025 5:51 PM CDT EKG completed, results given to Dr Matthews for review. documented in this encounter ED Notes * Brittaney Schmitt RN - 02/01/2025 6:49 PM CDT Called to patient's bedside. Patient stating she is having epigastric pain that radiates up her chest. Dr. Matthews notified. No new orders at this time. * Steffany Rees RN - 02/01/2025 6:09 PM CDT Patient arrived to the ED via ground ambulance. Patient complains of chest pain radiating to her neck and stomach area with nausea. Patient states the pain started roughly 1 hour prior to calling theambulance. Patient states she doesn't know if it is her heart or her GERD so she took a 324mg aspirin at home. Patient states her pain is 9/10 at this time. * Tommy Matthews MD - 02/01/2025 5:36 PM CDT HISTORY OF PRESENT ILLNESS Latesha Wilhelm, a 59 y.o. female presents to the ED with a Chief Complaint of Chest Pain and Nausea Subjective This patient is a 59-year-old white female who presents to the emergency department complaining of left upper chest pain. She states it started 1 hour prior to arrival. I know this patient well. She does present frequently with chest pain and abdominal pain. She states she took aspirin prior to arrival. She states the pain does radiate into the neck and arm. She does complain of some shortness ofbreath and nausea as well. Patient has a history of COPD, bipolar disorder, schizoaffective disorder, congestive heart failure and chronic pain. REVIEW OF SYSTEMS Review of Systems Constitutional: Negative for activity change, appetite change, chills, diaphoresis, fatigue and fever. HENT: Negative for congestion, dental problem, ear pain, postnasal drip, rhinorrhea, sinus pressure, sore throat, tinnitus and trouble swallowing. Eyes: Negative for photophobia, pain, discharge, redness and visual disturbance. Respiratory: Positive for shortness of breath. Negative for cough, chest tightness and wheezing. Cardiovascular: Positive for chest pain. Negative for palpitations and leg swelling. Gastrointestinal: Positive for nausea. Negative for abdominal distention, abdominal pain, blood in stool, constipation, diarrhea and vomiting. Genitourinary: Negative for decreased urine volume, difficulty urinating, dyspareunia, dysuria, flank pain, frequency, hematuria, menstrual problem, pelvic pain, urgency, vaginal bleeding and vaginaldischarge. Musculoskeletal: Negative for arthralgias, back pain, gait problem, joint swelling, myalgias, neck pain [...] fracture, left, Anxiety, Arthritis, Asthma, Atrial fibrillation ([facility]), Avascular necrosis ([facility]), Bipolar disorder ([facility]), Bladder stones, Bronchitis, Calculus of kidney, Cannabinoid hyperemesis syndrome, Clostridium difficile enterocolitis, Colitis, Community acquired pneumonia, Congestive heart failure ([facility]) (02/17/2022),COPD (chronic obstructive pulmonary disease) ([facility]), Depression, Diverticulitis, Drug-seeking behavior, Flank pain, Flu, Gastritis, Gastroparesis, GERD (gastroesophageal reflux disease), Hematuria, HTN (hypertension), Hyperlipidemia, Hypotension, IBS (irritable bowel syndrome) (07/21/2020), IBS (irritable bowel syndrome), Influenza, Migraines, MRSA (methicillin resistant staph aureus) culture positive, MRSA (methicillin resistant Staphylococcus aureus), Pneumonia, PTSD (post-traumatic stress disorder) (04/29/2013), Rectal bleeding, Respiratory failure ([facility]), Schizoaffective disorder ([facility]), Seizure disorder ([facility]), Shortness of breath, Somatization disorder, Substance abuse ([facility]), Suicidal ideation, URI (upper respiratory infection), UTI [...] ALLERGIES Fentanyl, Tetracycline, Tramadol, Duloxetine, Fluoxetine, Haloperidol, [place], Metoclopramide hcl,Risperidone, Adhesive, Codeine, Gabapentin, Ketorolac tromethamine, Penicillins, Tetracyclines, andZiprasidone hcl HOME MEDICATIONS Discharge Medication List as of 02/01/2025 7:20 PM CONTINUE these medications which have NOT CHANGED Details famotidine (PEPCID) 20 mg tablet Take 20 mg by mouth 2 times daily. diphenhydrAMINE (BENADRYL) 25 mg tablet Take 50 [...] 2 doses extra each day if needed dicyclomine (BENTYL) 10 mg capsule Take 10 mg by mouth 4 times daily. 1-2 QID traZODone (DESYREL) 100 mg tablet Take 300 mg by mouth daily at bedtime. pantoprazole (PROTONIX) 40 mg Tablet, Delayed Release (E.C.) Take 40 mg by mouth 2 times daily. !! vortioxetine (Trintellix) 5 mg tablet Take 5 mg by mouth daily. acetaminophen (TYLENOL ARTHRITIS) 650 mg Extended Release tablet Take 650 mg by mouth every 6 hoursas needed for Pain. lidocaine (LIDODERM) 5 % Adhesive Patch, Medicated Apply 1 Patch to affected area every 24 hours., Disp-30 Patch, R-0 diphenoxylate-atropine 2.5 mg-0.025 mg tablet Take 1 Tablet by mouth 4 times daily as needed for Diarrhea/Loose Stools., Disp-30 Tablet, R-0 HYDROcodone-acetaminophen (NORCO) 5-325 mg tablet Take 1-2 Tablets by mouth every 6 hours as neededfor Pain. Max Daily Amount: 8 Tablets, Disp-30 Tablet, R-0 naloxone (NARCAN) 4 mg/spray [place], Non-Aerosol EMERGENCY USE ONLY: Administer 1 spray (4 mg) in one nostril one time. May repeat in alternating nostrils every 2-3 min until responsive or EMS arrives., Disp-2 Each, R-3 promethazine (PHENERGAN) 25 mg tablet Take 25 mg by mouth every 6 hours as needed for Nausea/Emesis. prochlorperazine (COMPAZINE) 25 mg Suppository Insert 1 Suppository (25 mg) by rectum every 12 hours as needed for Nausea/Emesis., Disp-10 Suppository, R-1 sucralfate (CARAFATE) 1 gram tablet Take 1 Gram by mouth 2 times daily. acetaminophen (TYLENOL) 500 mg tablet Take 1,000 mg by mouth every 6 hours as needed. !! vortioxetine (Trintellix) 20 mg tablet Take 5 mg by mouth daily at bedtime. LAMOTRIGINE ORAL Take by mouth daily. albuterol HFA 90 mcg inhaler Use 4 puffs every 4 hours as needed but sooner if necessary., Disp-8.5Gram, R-0 !! - Potential duplicate medications found. Please discuss with provider. STOP taking these medications methylPREDNISolone (MEDROL DOSPACK) 4 mg Tablets, Dose Pack Comments: Reason for Stopping: Objective PHYSICAL EXAM INITIAL VS BP: 114/64 (02/01/251740), Heart Rate: 78 bpm (02/01/251740), Resp: 22 (02/01/251740), Pulse: 72(02/01/25 1845), Temp: 97.5 ??F (36.4 ??C) (02/01/251740), Temp src: Temporal (02/01/251740), SpO2: 97 % (02/01/251740), Height: 5' 2 (157.5 cm) (02/01/251740), Weight: 77.3 kg (170 lb 8 oz) (02/01/251740), BMI (Calculated): (!) 31.16 (02/01/251740) No LMP recorded. Patient has had a hysterectomy. Physical Exam Vitals and nursing note reviewed. Constitutional: General: She is not in acute distress. Appearance: She is well-developed. HENT: Head: Normocephalic [...] There is no abdominal tenderness. Musculoskeletal: General: No tenderness. Normal range of motion. Cervical back: Normal range of motion and neck supple. Skin: General: Skin is warm and dry. Neurological: Mental Status: She is alert and oriented to person, place, and time. Cranial Nerves: No cranial nerve deficit. Psychiatric: Behavior: Behavior normal. Thought Content: Thought content normal. DIAGNOSTICS LAB: CBC WITH DIFFERENTIAL - Abnormal Result Value WBC 7.0 RBC 3.72 (*) HEMOGLOBIN 12.3 HEMATOCRIT 35.9 MCV 96.5 (*) MCH 33.1 (*) MCHC 34.3 RDW 13.6 RDW-STDEV 48.5 PLATELETS 209 MPV 10.0 NEUTROPHILS 46 LYMPHOCYTES 40 MONOCYTES 10 EOSINOPHILS 3 BASOPHILS 1 IMMATURE GRANULOCYTES 0 NEUTROPHIL ABSOLUTE 3.18 LYMPHOCYTE ABSOLUTE 2.81 MONOCYTE ABSOLUTE 0.70 (*) EOSINOPHIL ABSOLUTE 0.22 BASOPHILS ABSOLUTE 0.07 IMMATURE GRANULOCYTES ABSOLUTE 0.02 COMPREHENSIVE METABOLIC PANEL - Abnormal SODIUM 135 (*) POTASSIUM 3.8 CHLORIDE 101 CO2 21 (*) CALCIUM 9.4 BUN 14 CREATININE 1.01 (*) GLUCOSE 108 (*) TOTAL PROTEIN 6.3 (*) ALBUMIN 4.0 BILIRUBIN TOTAL 0.2 ALKALINE PHOSPHATASE 93 AST 17 ALT 11 GFR >60 ANION GAP 13 BRAIN NATRIURETIC PEPTIDE, BNP OR PROBNP - Abnormal PROBNP, N TERMINAL 260 (*) TROPONIN BASELINE, 5TH GEN - Normal TROPONIN T, BASELINE 5TH GEN 6 RADIOLOGY: XR CHEST PA OR AP 1 VW Radiologist Impression IMPRESSION: Bilateral pulmonary edema. EKG: PROCEDURES Procedures MEDICAL DECISION MAKING AND PLAN OF CARE Medical Decision Making Patient does have a history of chronic abdominal pain and reflux. Started with GI cocktail to see if that helps. Cardiac workup is underway. Patient care will be transferred to Dr. Leon at shift change. Patient is stable. Her EKG reveals normal sinus rhythm with no ST segment abnormalities. Chest x-ray is normal. CBC normal. CMP was normal. Baseline troponin was 6. BNP 260. 2-hour troponin is pending. Amount and/or Complexity of Data Reviewed Labs: ordered. Radiology: ordered. ECG/medicine tests: ordered. Risk OTC drugs. Prescription drug management. Clinical Scoring & Consults Medications Administered During the ED Stay from 02/01/2025 1737 to 02/03/20252020 Date/Time Order Dose Route Action 02/01/2025 1830 CDT aluminum-magnesium HYDROXIDE (MAALOX) 200-200 mg/5 mL oral suspension 20 mL 20 mL Oral Given 02/01/20251829 CDT lidocaine (XYLOCAINE) 2 % viscous oral solution 10 mL 10 mL Mouth/Throat Given 02/01/2025 192 CDT ketorolac (TORADOL) injection 10 mg 10 mg IV Given Discharge Medication List as of 02/01/2025 7:20 PM CONTINUE these medications which have NOT CHANGED Details famotidine (PEPCID) 20 mg tablet Take 20 mg by mouth 2 times daily. diphenhydrAMINE (BENADRYL) 25 mg tablet Take 50 [...] 2 doses extra each day if needed dicyclomine (BENTYL) 10 mg capsule Take 10 mg by mouth 4 times daily. 1-2 QID traZODone (DESYREL) 100 mg tablet Take 300 mg by mouth daily at bedtime. pantoprazole (PROTONIX) 40 mg Tablet, Delayed Release (E.C.) Take 40 mg by mouth 2 times daily. !! vortioxetine (Trintellix) 5 mg tablet Take 5 mg by mouth daily. acetaminophen (TYLENOL ARTHRITIS) 650 mg Extended Release tablet Take 650 mg by mouth every 6 hoursas needed for Pain. lidocaine (LIDODERM) 5 % Adhesive Patch, Medicated Apply 1 Patch to affected area every 24 hours., Disp-30 Patch, R-0 diphenoxylate-atropine 2.5 mg-0.025 mg tablet Take 1 Tablet by mouth 4 times daily as needed for Diarrhea/Loose Stools., Disp-30 Tablet, R-0 HYDROcodone-acetaminophen (NORCO) 5-325 mg tablet Take 1-2 Tablets by mouth every 6 hours as neededfor Pain. Max Daily Amount: 8 Tablets, Disp-30 Tablet, R-0 naloxone (NARCAN) 4 mg/spray [place], Non-Aerosol EMERGENCY USE ONLY: Administer 1 spray (4 mg) in one nostril one time. May repeat in alternating nostrils every 2-3 min until responsive or EMS arrives., Disp-2 Each, R-3 promethazine (PHENERGAN) 25 mg tablet Take 25 mg by mouth every 6 hours as needed for Nausea/Emesis. prochlorperazine (COMPAZINE) 25 mg Suppository Insert 1 Suppository (25 mg) by rectum every 12 hours as needed for Nausea/Emesis., Disp-10 Suppository, R-1 sucralfate (CARAFATE) 1 gram tablet Take 1 Gram by mouth 2 times daily. acetaminophen (TYLENOL) 500 mg tablet Take 1,000 mg by mouth every 6 hours as needed. !! vortioxetine (Trintellix) 20 mg tablet Take 5 mg by mouth daily at bedtime. LAMOTRIGINE ORAL Take by mouth daily. albuterol HFA 90 mcg inhaler Use 4 puffs every 4 hours as needed but sooner if necessary., Disp-8.5Gram, R-0 !! - Potential duplicate medications found. Please discuss with provider. STOP taking these medications methylPREDNISolone (MEDROL DOSPACK) 4 mg Tablets, Dose Pack Comments: Reason for Stopping: LAST VS BP: 107/72 (02/01/251844), Heart Rate: 73 bpm (02/01/251844), Resp: 19 (02/01/251844), Pulse: 72(02/01/251844), Temp: 97.5 ??F (36.4 ??C) (02/01/251740), Temp src: Temporal (02/01/251740), SpO2: 93 % (02/01/251844) CLINICAL IMPRESSION Diagnoses Diagnosis Comment Added By Time Added Abdominal pain, unspecified abdominal location [R10.9] Sea Leon MD 02/01/2025 7:10 PM Chest pain, unspecified type [R07.9] Tommy Matthews MD 02/03/2025 8:21 PM DISPOSITION, EDUCATION AND MEDICATION RECONCILIATION Medications reconciled. See after visit summary for patient education on discharged patients. ED Disposition ED Disposition Discharge Condition Stable User Sea Leon MD Date/Time Sat Feb 01, 2025 7:10 PM Comment -- ATTESTATION STATEMENTS documented in this encounter Plan of Treatment Not on file documented as of this encounter Procedures Procedure Name Priority Date/Time Associated Diagnosis Comments XR CHEST PA OR AP 1 VW Stat 6:47 PM CDT TROPONIN BASELINE, 5TH GEN Stat 02/01/2025 5:53 PM CDT CBC WITH DIFFERENTIAL Stat 02/01/2025 5:53 PM CDT BRAIN NATRIURETIC PEPTIDE, BNP OR PROBNP Stat 02/01/2025 5:53 PM CDT COMPREHENSIVE METABOLIC PANEL Stat 02/01/2025 5:53 PM CDT documented in this encounter Results * XR CHEST PA OR AP 1 VW (02/01/2025 6:47 PM CDT) Anatomical Region Laterality Modality Chest Computed Radiogr aphy 02/01/2025 6:47 PM CDT Impressions 02/01/2025 6:58 PM CDT IMPRESSION: Bilateral pulmonary edema. Narrative 02/01/2025 6:58 PM CDT Exam: XR CHEST PA OR AP 1 VW Date/Time of Exam: 02/01/2025 6:47 PM Reason For Exam: Chest Pain Diagnosis: See Reason for Exam The heart size is normal. Mild pulmonary vascular redistribution is present. Diffuse consolidation is seen in the lungs bilaterally centered around the hilar regions with numerous curly B lines present bilaterally. No pneumothorax is seen. Procedure Note Buster Sotelo MD - 02/01/2025 Exam: XR CHEST PA OR AP 1 VW Date/Time of Exam: 02/01/2025 6:47 PM Reason For Exam: Chest Pain Diagnosis: See Reason for Exam The heart size is normal. Mild pulmonary vascular redistribution is present. Diffuse consolidation is seen in the lungs bilaterally centered around the hilar regions with numerous curly B lines present bilaterally. No pneumothorax is seen. IMPRESSION: Bilateral pulmonary edema. Tommy Matthews MD DIAGNOSTIC IMAGING ORDER KAYLEE Final Result * TROPONIN BASELINE, 5TH GEN (02/01/2025 5:53 PM CDT) TROPONIN T, BASELINE 5TH GEN 6 <=10 ng/L 02/01/2025 6:42 PM CDT [facility] Blood Venipuncture / Unknown 02/01/2025 5:53 PM CDT 02/01/2025 6:24 PM CDT Narrative [facility] - 02/01/2025 6:42 PM CDT Troponin Detectable but normal range. Tommy Matthews MD CHEMISTRY ORDERABLES Fin al Result [facility] CLIA # [id number] [address] [place] [address] * (ABNORMAL) BRAIN NATRIURETIC PEPTIDE, BNP OR PROBNP (02/01/2025 5:53 PM CDT) PROBNP, N TERMINAL 260(H) 0 - 125 pg/mL 02/01/2025 6:42 PM CDT [facility] Comment: INTERPRETIVE COMMENT based on diagnosis: [...] 900 pg/mL >75 years: >1800 pg/mL Blood Venipuncture / Unknown 02/01/2025 5:53 PM CDT 02/01/2025 6:24 PM CDT us Tommy Matthews MD CHEMISTRY ORDERABLES Fin al Result [id number] [address] [place] [id number] * (ABNORMAL) COMPREHENSIVE METABOLIC PANEL (02/01/2025 5:53 PM CDT) SODIUM 135(L) 136 - 145 mmol/L 02/01/2025 6:42 PM [facility] POTASSIUM 3.8 3.5 - 5.1 mmol/L 02/01/2025 6:42 PM [facility] CHLORIDE 101 98 - 107 mmol/L 02/01/2025 6:42 PM [facility] CO2 21(L) 22 - 29 mmol/L 02/01/2025 6:42 PM [facility] CALCIUM 9.4 8.6 - 10.0 mg/dL 02/01/2025 6:42 PM [facility] BUN 14 6 - 20 mg/dL 02/01/2025 6:42 PM [facility] CREATININE 1.01(H) 0.51 - 0.95 mg/dL 02/01/2025 6:42 PM [facility] GLUCOSE 108(H) 74 - 99 mg/dL 02/01/2025 6:42 PM [facility] TOTAL PROTEIN 6.3(L) 6.6 - 8.7 g/dL 02/01/2025 6:42 PM [facility] ALBUMIN 4.0 3.5 - 5.2 g/dL 02/01/2025 6:42 PM [facility] BILIRUBIN TOTAL 0.2 0.0 - 1.2 mg/dL 02/01/2025 6:42 PM [facility] ALKALINE PHOSPHATASE 93 35 - 104 U/L 02/01/2025 6:42 PM [facility] AST 17 0 - 35 U/L 02/01/2025 6:42 PM [facility] ALT 11 0 - 35 U/L 02/01/2025 6:42 PM [facility] GFR >60 >=60 mL/min/1.7 3 sq meter 02/01/2025 6:42 PM [facility] Comment:eGFR calculated with 2020 CKD-EPI equation. Vegetarian diet, extremely high or low muscle mass, and may affect results. Cystatin C with Glomerular Filtration Rate is a suitable alternative for these patients. ANION GAP 13 5 - 20 mmol/L 02/01/2025 6:42 PM [facility] Blood Venipuncture / Unknown 02/01/2025 5:53 PM CDT 02/01/2025 6:24 PM CDT us Tommy Matthews MD CHEMISTRY ORDERABLES Fin al Result [facility] CLIA # [id number] [address] [place] [id number] * (ABNORMAL) CBC WITH DIFFERENTIAL (02/01/2025 5:53 PM CDT) WBC 7.0 4.0 - 10.0 K/uL 02/01/2025 6:27 PM [facility] RBC 3.72(L) 3.93 - 5.22 M/uL 02/01/2025 6:27 PM [facility] HEMOGLOBIN 12.3 11.2 - 15.7 g/dL 02/01/2025 6:27 PM [facility] HEMATOCRIT 35.9 34.1 - 44.9 % 02/01/2025 6:27 PM [facility] MCV 96.5(H) 79.4 - 94.8 fL 02/01/2025 6:27 PM [facility] MCH 33.1(H) 25.6 - 32.2 pg 02/01/2025 6:27 PM [facility] MCHC 34.3 32.2 - 35.5 g/dL 02/01/2025 6:27 PM [facility] RDW 13.6 11.0 - 14.5 % 02/01/2025 6:27 PM [facility] RDW-STDEV 48.5 36.9 - 56.9 fL 02/01/2025 6:27 PM [facility] PLATELETS 209 163 - 337 K/uL 02/01/2025 6:27 PM [facility] MPV 10.0 10.0 - 14.8 fL 02/01/2025 6:27 PM [facility] NEUTROPHILS 46 34 - 71 % 02/01/2025 6:27 PM [facility] LYMPHOCYTES 40 19 - 52 % 02/01/2025 6:27 PM [facility] MONOCYTES 10 5 - 13 % 02/01/2025 6:27 PM [facility] EOSINOPHILS 3 1 - 6 % 02/01/2025 6:27 PM [facility] BASOPHILS 1 0 - 1 % 02/01/2025 6:27 PM [facility] IMMATURE GRANULOCYTES 0 % 02/01/2025 6:27 PM [facility] NEUTROPHIL ABSOLUTE 3.18 1.56 - 6.13 K/uL 02/01/2025 6:27 PM [facility] LYMPHOCYTE ABSOLUTE 2.81 1.20 - 3.40 K/uL 02/01/2025 6:27 PM CDT [facility] MONOCYTE ABSOLUTE 0.70(H) 0.24 - 0.36 K/uL 02/01/2025 6:27 PM CDT [facility] EOSINOPHIL ABSOLUTE 0.22 0.04 - 0.36 K/uL 02/01/2025 6:27 PM CDT [facility] BASOPHILS ABSOLUTE 0.07 0.01 - 0.08 K/uL 02/01/2025 6:27 PM CDT [facility] IMMATURE GRANULOCYTES ABSOLUTE 0.02 K/uL 02/01/2025 6:27 PM CDT [facility] Blood Venipuncture / Unknown 02/01/2025 5:53 PM CDT 02/01/2025 6:24 PM CDT us Tommy Matthews MD HEMATOLOGY ORDERABLES Fi nal Result [facility] # [id number] [address] [place] [phone] documented in this encounter Visit Diagnoses Diagnosis Abdominal pain, unspecified abdominal location- Primary Chest pain, unspecified type documented in this encounter Administered Medications Inactive Administered Medications - up to 3 most recent administrations Medication Order MAR Action Action Date Dose Rate Site aluminum-magnesium HYDROXIDE (MAALOX) 200-200 mg/5 mL oral suspension 20 mL 20 mL, Oral, ONE TIME ONLY, 1 dose, On 02/01/25 at 1830, Routine Given 02/01/2025 6:30 PM CDT 20 mL ketorolac (TORADOL) injection 10 mg 10 mg, IV, ONE TIME ONLY, 1 dose, On 02/01/25 at 1915, Routine Given 02/01/2025 7:22 PM CDT 10 mg lidocaine (XYLOCAINE) 2 % viscous oral solution 10 mL 10 mL, Mouth/Throat, ONE TIME ONLY, 1 dose, On 02/01/25 at 1830, Routine Given 02/01/2025 6:30 PM CDT 10 mL documented in this encounter Active and Recently Administered Medications Times are shown in CDT. Scheduled Medication Order 01/30/2025 01/31/2025 02/01/2025 aluminum-magnesium HYDROXIDE (MAALOX) 200-200 mg/5 mL oral suspension 20 mL (COMPLETED)(Linked Group 1) 20 mL, Oral, ONE TIME ONLY, 1 dose, On 02/01/25 at 1830, Routine 1830 (Given - Provid er: Steffany Rees RN) ketorolac (TORADOL) injection 10 mg (COMPLETED) 10 mg, IV, ONE TIME ONLY, 1 dose, On 02/01/25 at 1915, Routine 1922 (Given - Provid er: Le Bishop RN) lidocaine (XYLOCAINE) 2 % viscous oral solution 10 mL (COMPLETED)(Linked Group 1) 10 mL, Mouth/Throat, ONE TIME ONLY, 1 dose, On 02/01/25 at 1830, Routine 1830 (Given - Provid er: Steffany Rees RN) Linked Groups Order Group 1: aluminum-magnesium HYDROXIDE (MAALOX) 200-200 mg/5 mL oral suspension 20 mL (COMPLETED)Jump to med 20 mL, Oral, ONE TIME ONLY, 1 dose, On 02/01/25 at 1830, Routine And lidocaine (XYLOCAINE) 2 % viscous oral solution 10 mL (COMPLETED)Jump to med 10 mL, Mouth/Throat, ONE TIME ONLY, 1 dose, On 02/01/25 at 1830, Routine documented in this encounter Additional Health Concerns Assessment Noted Time PHQ-9 Depression Total Score: 3 10/01/19 23 4:46 PM CDT documented as of this encounter Care Teams Senior Asset Manager Relationship Specialty Start Date End Date Sally Dong MD [address] [phone] PCP - General Family Practice 04/07/22 documented as of this encounter
--- OUTSIDE RECORDS SUMMARY | 2025-02-09 09:24 | XMS_ITS | Encounter Summary ---
Author Organization [facility] Address [address] [place] [address] Care Team Providers Care Distribution Sales Representative Name Role Phone Sally Dong MD Primary Care Provider [phone] Reason for Visit * Reason Comments Neck Pain Encounter Details Date Type Department Care Team (Late st Contact Info) Description 02/09/2025 9:24 AM CDT - 02/09/2025 10:00 AM T Emergency [facility] Emergency Medicine [address] [place] [phone] Tommy Matthews MD [address] [place] [address] [place] [address] Cervicalgia (Primary Dx) Discharge Disposition: Home or Self Care Social History Tobacco Use Types Packs/Day Years Used Date Smoking Tobacco: Former Cigarettes Smokeless Tobacco: Never Tobacco Cessation:Counseling Given: Not Answered Alcohol Use Standard Drinks/Week [...] asked 05/05/2019 How often do you attend episcopalian or mu-ism serv ices? Not asked 05/05/2019 Do you belong to any clubs o r organizations such as episcopalian groups, unions, [employer] or athletic groups, or school groups? Not [...] who hurts you emotionally and/or physically? No 02/09/2025 Food Insecurity Answer Date Recorded Social/Environmental Concerns No concerns Transportation Needs Answer Date Record ed Social/Environmental Concerns No concerns Housing Stability Answer Date Recorded Social/Environmental Concerns No concerns Utility Needs Answer Date Recorded Social/Environmental Concerns No concerns Comments No Sex and Gender Information Value Date Recorded Sex Assigned at Female 03/25/2024 4:14 PM CDT Legal Sex Female 2:06 AM IDENTIFICATION OFFICER Gender Identity Female 03/25/2024 4:14 PM CDT Sexual Orientation Not on file documented as of this encounter Last Filed Vital Signs Vital Sign Reading Time Taken Comments Blood Pressure 92/66 02/09/2025 9:26 AM CDT Pulse - - Temperature 36.2 C (97.2 F) 02/09/2025 9:26 AM CDT Respiratory Rate 24 02/09/2025 9:26 AM CDT Oxygen Saturation 99% 02/09/2025 9:26 AM CDT Inhaled Oxygen Concentration - - Weight 74.4 kg (164 lb) 02/09/2025 9:26 AM CDT Height 157.5 cm (5' 2 ) 02/09/2025 9:26 AM CDT Body Mass Index 30 02/09/2025 9:26 AM CDT documented in this encounter Discharge Instructions * Attachments The following attachments cannot be sent through Care Everywhere. * Cervical Pain (Italian) * Orphenadrine (Italian) documented in this encounter Medications at Time of Discharge orphenadrine (NORFLEX) 100 mg Extended Release tablet Take 1 Tablet (100 mg) by mouth 2 times daily. 20 Tablet 02/09/2025 acetaminophen (TYLENOL) 500 mg tablet Take 1,000 [...] 30 Tablet 12/19/2024 naloxone (NARCAN) 4 mg/spray [place], Non-Aerosol EMERGENCY USE ONLY: Administer 1 spray [...] daily. 02/06/2018 documented as of this encounter ED Notes * Arnol Sarmiento RN - 02/09/2025 9:34 AM CDT Latesha Wilhelm 59 y.o. female, arrived to the ED via TRANSPORTATION: private vehicle for complaints of Chief Complaint Patient presents with Neck Pain This patient arrives for complaints of Midline Neck Pain. Patient ambulates well to room without signs of distress, is holding her head down and appears in pain. States this pain has been present for2 days, does not radiate, and is not relieved with Tylenol and Icy Hot. Denies any injury. Vitals taken, patient placed on monitor, clothing removed as needed per policy, privacy provided to patient.Respiratory: WDL - Regular rhythm, symmetrical chest expansion, no dyspnea , Cardiac/Circulatory: WDL - No numbness or tingling, no chest pain , Skin: WDL - Normal color for ethnicity, skin intact, patient is Alert and Oriented x4, pain scale: 9/10, findings; bleeding: without any bleeding noted. Behavior during evaluation: appropriate. Belongings secured, patient Weapons assessment: denied possession of any weapons or firearms at this time. Patient comforted, all questions answered to the bestof the staff's ability, education performed, and left patient in the room with the call light in reach, bed in lowest position, wheels locked, side rails up. * Tommy Matthews MD - 02/09/2025 9:14 AM CDT HISTORY OF PRESENT ILLNESS Latesha Wilhelm, a 59 y.o. female presents to the ED with a Chief Complaint of Neck Pain Subjective This patient is a 59-year-old white female well-known to me. She presents to the emergency department several times per week with various pain complaints. She has chronic pain along with multiple other medical problems. Today she is complaining of neck pain which she states started 3 days ago. No injury. REVIEW OF SYSTEMS Review of Systems [...] vaginal bleeding and vaginaldischarge. Musculoskeletal: Positive for neck pain. Negative for arthralgias, back pain, gait problem, joint swelling, myalgias and neck stiffness. Skin: Negative for color [...] fracture, left, Anxiety, Arthritis, Asthma, Atrial fibrillation (CMS/HCC), Avascular necrosis (CMS/HCC), Bipolar disorder (CMS/HCC), Bladder stones, Bronchitis, Calculus of kidney, Cannabinoid hyperemesis syndrome, Clostridium difficile enterocolitis, Colitis, Community acquired pneumonia, Congestive heart failure (CMS/HCC) (02/17/2022),COPD (chronic obstructive pulmonary disease) (CMS/[facility]), Depression, Diverticulitis, Drug-seeking behavior, Flank pain, Flu, Gastritis, Gastroparesis, GERD (gastroesophageal reflux disease), Hematuria, HTN (hypertension), Hyperlipidemia, Hypotension, IBS (irritable bowel syndrome) (07/21/2020), IBS (irritable bowel syndrome), Influenza, Migraines, MRSA (methicillin resistant staph aureus) culture positive, MRSA (methicillin resistant Staphylococcus aureus), Pneumonia, PTSD (post-traumatic stress disorder) (04/29/2013), Rectal bleeding, Respiratory failure ([facility]), Schizoaffective disorder ([facility]), Seizure disorder ([facility]), Shortness of breath, Somatization disorder, Substance abuse ([facility]), Suicidal ideation, URI (upper respiratory infection), UTI [...] her father. SOCIAL: reports that she has quit smoking. Her smoking use included cigarettes. She has never used smokeless tobacco. She reports that she does not currently use alcohol. She reports that she does not currently use drugs after having used the following drugs: Marijuana. She reports that she is not currently sexually active. No history on file. Social History Other Topics Concern Not on file ALLERGIES Fentanyl, Tetracycline, Tramadol, Duloxetine, Fluoxetine, Haloperidol, Jacinto, Metoclopramide hcl,Risperidone, Adhesive, Codeine, Gabapentin, Ketorolac tromethamine, Penicillins, Tetracyclines, andZiprasidone hcl HOME MEDICATIONS Discharge Medication List as of 02/09/2025 9:49 AM START taking these medications Details orphenadrine (NORFLEX) 100 mg Extended Release tablet Take 1 Tablet (100 mg) by mouth 2 times daily., Disp-20 Tablet, R-0 CONTINUE these medications which have NOT CHANGED Details !! vortioxetine (Trintellix) 5 mg tablet Take 5 mg by mouth daily. acetaminophen (TYLENOL ARTHRITIS) 650 mg Extended Release tablet Take 650 mg by mouth every 6 hoursas needed for Pain. diphenoxylate-atropine 2.5 mg-0.025 mg tablet Take 1 Tablet by mouth 4 times daily as needed for Diarrhea/Loose Stools., Disp-30 Tablet, R-0 naloxone (NARCAN) 4 mg/spray [place], Non-Aerosol EMERGENCY USE ONLY: Administer 1 spray [...] 2 doses extra each day if needed !! vortioxetine (Trintellix) 20 mg tablet Take [...] discuss with provider. STOP taking these medications lidocaine (LIDODERM) 5 % Adhesive Patch, Medicated Comments: Reason for Stopping: HYDROcodone-acetaminophen (NORCO) 5-325 mg tablet Comments: Reason for Stopping: Objective PHYSICAL EXAM INITIAL VS BP: (!) 92/66 (02/09/25925), Heart Rate: 92 bpm (02/09/25925), Resp: 24 (02/09/25925), Pulse:(not recorded), Temp: 97.2 ??F (36.2 ??C) (02/09/25925), Temp src: Temporal (02/09/25925), SpO2: 99 % (02/09/25925), Height: 5' 2 (157.5 cm) (02/09/25925), Weight: 74.4 kg (164 lb) (), BMI (Calculated): (!) 29.99 (02/09/25925) No LMP recorded. Patient has had a hysterectomy. Physical Exam Vitals and nursing note reviewed. Constitutional: General: She is not in acute distress. Appearance: She is well-developed. HENT: Head: Normocephalic and atraumatic. Eyes: Conjunctiva/sclera: Conjunctivae normal. Pupils: Pupils are equal, round, and reactive to light. Neck: Comments: Paraspinal tenderness bilaterally. Cardiovascular: Rate and Rhythm: Normal rate and regular rhythm. Heart sounds: Normal heart sounds. Pulmonary: Effort: Pulmonary effort is normal. No respiratory distress. Breath sounds: Normal breath sounds. Abdominal: General: Bowel sounds are normal. Palpations: Abdomen is soft. Tenderness: There is no abdominal tenderness. Musculoskeletal: General: Normal range of motion. Cervical back: Normal range of motion and neck supple. Tenderness present. Skin: General: Skin is warm and dry. Neurological: Mental Status: She is alert and oriented to person, place, and time. Cranial Nerves: No cranial nerve deficit. Psychiatric: Behavior: Behavior normal. Thought Content: Thought content normal. DIAGNOSTICS LAB: No data to display RADIOLOGY: No orders to display EKG: PROCEDURES Procedures MEDICAL DECISION MAKING AND PLAN OF CARE Medical Decision Making Patient was given injections of Toradol and Norflex in the emergency department. She was dischargedin stable condition with a prescription for tizanidine which she has taken before which did work for her. Recommended she follow-up with her primary care physician for ongoing management. Risk Prescription drug management. Clinical Scoring & Consults Medications Administered During the ED Stay from 02/09/2025 0914 to 02/09/2025 1203 Date/Time Order Dose Route Action 02/09/2025 0945 CDT ketorolac (TORADOL) injection 30 mg 30 mg IM Given 02/09/2025 0945 CDT orphenadrine citrate (NORFLEX) 30 mg/mL injection 60 mg 60 mg IM Given Discharge Medication List as of 02/09/2025 9:49 AM START taking these medications Details orphenadrine (NORFLEX) 100 mg Extended Release tablet Take 1 Tablet (100 mg) by mouth 2 times daily., Disp-20 Tablet, R-0 CONTINUE these medications which have NOT CHANGED Details !! vortioxetine (Trintellix) 5 mg tablet Take 5 mg by mouth daily. acetaminophen (TYLENOL ARTHRITIS) 650 mg Extended Release tablet Take 650 mg by mouth every 6 hoursas needed for Pain. diphenoxylate-atropine 2.5 mg-0.025 mg tablet Take 1 Tablet by mouth 4 times daily as needed for Diarrhea/Loose Stools., Disp-30 Tablet, R-0 naloxone (NARCAN) 4 mg/spray [place], Non-Aerosol EMERGENCY USE ONLY: Administer 1 spray [...] 2 doses extra each day if needed !! vortioxetine (Trintellix) 20 mg tablet Take [...] discuss with provider. STOP taking these medications lidocaine (LIDODERM) 5 % Adhesive Patch, Medicated Comments: Reason for Stopping: HYDROcodone-acetaminophen (NORCO) 5-325 mg tablet Comments: Reason for Stopping: LAST VS BP: (!) 92/66 (02/09/25925), Heart Rate: 92 bpm (02/09/25925), Resp: 24 (02/09/25925), Pulse:(not recorded), Temp: 97.2 ??F (36.2 ??C) (02/09/25925), Temp src: Temporal (02/09/25925), SpO2: 99 % (02/09/25925) CLINICAL IMPRESSION Diagnosis Diagnosis Comment Added By Time Added Cervicalgia [M54.2] Tommy Matthews MD 02/09/2025 9:41 AM DISPOSITION, EDUCATION AND MEDICATION RECONCILIATION Medications reconciled. See after visit summary for patient education on discharged patients. ED Disposition ED Disposition Discharge Condition Stable User Tommy Matthews MD Date/Time [place] Feb 09, 2025 9:40 AM Comment -- ATTESTATION STATEMENTS documented in this encounter Plan of Treatment Not on file documented as of this encounter Visit Diagnoses Diagnosis Cervicalgia- Primary documented in this encounter Administered Medications Inactive Administered Medications - up to 3 most recent administrations Medication Order MAR Action Action Date Dose Rate Site ketorolac (TORADOL) injection 30 mg 30 mg, IM, ONE TIME ONLY, 1 dose, On 02/09/25 at 0945, Routine Given 02/09/2025 9:45 AM CDT 30 mg Arm, Right orphenadrine citrate (NORFLEX) 30 mg/mL injection 60 mg 60 mg, IM, ONE TIME ONLY, 1 dose, On 02/09/25 at 0945, Routine Given 02/09/2025 9:45 AM CDT 60 mg Hip, Right documented in this encounter Active and Recently Administered Medications Times are shown in CDT. Scheduled Medication Order 02/07/2025 02/08/2025 02/09/2025 ketorolac (TORADOL) injection 30 mg (COMPLETED) 30 mg, IM, ONE TIME ONLY, 1 dose, On 02/09/25 at 0945, Routine 0945 (Given - Provid er: Arnol Sarmiento RN) orphenadrine citrate (NORFLEX) 30 mg/mL injection 60 mg (COMPLETED) 60 mg, IM, ONE TIME ONLY, 1 dose, On 02/09/25 at 0945, Routine 0945 (Given - Provid er: Arnol Sarmiento RN) documented in this encounter Additional Health Concerns Assessment Noted Time PHQ-9 Depression Total Score: 3 10/01/19 23 4:46 PM CDT documented as of this encounter Care Teams Distribution Sales Representative Relationship Specialty Start Date End Date Sally Dong MD [address] [address] PCP - General Family Practice 04/07/22 documented as of this encounter
[2025-02-09 22:36] VITALS: BP 109/84; PULSE 70; RESP 17; TEMP 36.2; O2SAT 97; BMI 212.7
--- OUTSIDE RECORDS SUMMARY | 2025-02-09 22:58 | XMS_ITS | Encounter Summary ---
Author Organization [facility] Address [address] [place] [address] Care Team Providers Care Case Checker Name Role Phone Dara Tavera Primary Care Provider Encounter Details Date Type Department Care Team (Latest Contact Info) Description 02/24/2005 Outpatient Historical [facility] [address] [facility] [address] [place] [address] Prasad Carpenter MD NO ADDRESS ON FILE LUMB/LUMBOSAC DISC DEGEN (Primary Dx) Social History Tobacco Use Types Packs/Day Years Used Date Smoking Tobacco: Never Assessed Comments Unknown Sex and Gender Information Value Date Recorded Sex Assigned at Not on file Legal Sex Female 5:22 AM MOBILE APPLICATION TESTER Gender Identity Not on file Sexual Orientation Not on file documented as of this encounter Plan of Treatment Not on file documented as of this encounter Visit Diagnoses Diagnosis Degeneration of lumbar or lumbosacral intervertebral disc- Primary documented in this encounter Additional Health Concerns Infection Onset Date Last Indicated Resolved Time VRE Comment:Urine 10/30/13 Resolved 11/04/2013 11/04/2013 8 10:33 AM MOBILE APPLICATION TESTER R/O COVID-19 12/25/2019 12/25/2019 12/26/2019 2:46 PM CDT R/O COVID-19 05/09/2020 05/09/2020 05/09/2020 12:1 7 PM MOBILE APPLICATION TESTER documented as of this encounter Care Teams Case Checker Relationship Specialty Start Date End Date Dara Tavera FNP [address] [place] [phone] PCP - General NURSE PRACTITIONER 10/13/18 documented as of this encounter
--- OUTSIDE RECORDS SUMMARY | 2025-02-09 22:58 | XMS_ITS | Encounter Summary ---
Author Organization [facility] Address [address] [place] [address] Care Team Providers Care Trimmer Meat Name Role Phone Dara Tavera Primary Care Provider Encounter Details Date Type Department Care Team (Latest Contact Info) Description 01/25/2005 Outpatient [facility] Oral and Maxillo Surgery[address] [place] [address] Raleigh Bagley, PhD NO ADDRESS ON FILE Tooth eruption disturb (Primary Dx) Social History Tobacco Use Types Packs/Day Years Used Date Smoking Tobacco: Never Assessed Comments Unknown Sex and Gender Information Value Date Recorded Sex Assigned at Not on file Legal Sex Female 5:22 AM LABORER WHARF Gender Identity Not on file Sexual Orientation Not on file documented as of this encounter Plan of Treatment Not on file documented as of this encounter Visit Diagnoses Diagnosis Tooth eruption disturb- Primary Disturbances in tooth eruption documented in this encounter Additional Health Concerns Infection Onset Date Last Indicated Resolved Time VRE Comment:Urine 10/30/13 Resolved 11/04/2013 11/04/2013 8 10:33 AM LABORER WHARF R/O COVID-19 12/25/2019 12/25/2019 12/26/2019 2:46 PM CDT R/O COVID-19 05/09/2020 05/09/2020 05/09/2020 12:1 7 PM LABORER WHARF documented as of this encounter Care Teams Trimmer Meat Relationship Specialty Start Date End Date Dara Tavera FNP [address] [place] [address] PCP - General NURSE PRACTITIONER 10/13/18 documented as of this encounter
--- OUTSIDE RECORDS SUMMARY | 2025-02-09 22:58 | XMS_ITS | Encounter Summary ---
Author Organization [facility] Address [address] [place] [address] Care Team Providers Care Goal Umpire Name Role Phone Dara Tavera Primary Care Provider Encounter Details Date Type Department Care Team (Latest Contact Info) Description 07/24/2004 Outpatient Historical [facility] [address] [place] [address] AMBULANCE, [facility] OTHER ALTERATION OF CONSCIOUSNESS (Primary Dx) Social History Tobacco Use Types Packs/Day Years Used Date Smoking Tobacco: Never Assessed Comments Unknown Sex and Gender Information Value Date Recorded Sex Assigned at Not on file Legal Sex Female 5:22 AM ROCK ROOM WORKER Gender Identity Not on file Sexual Orientation Not on file documented as of this encounter Plan of Treatment Not on file documented as of this encounter Visit Diagnoses Diagnosis Other alteration of consciousness- Primary documented in this encounter Additional Health Concerns Infection Onset Date Last Indicated Resolved Time VRE Comment:Urine 10/30/13 Resolved 11/04/2013 11/04/2013 8 10:33 AM ROCK ROOM WORKER R/O COVID-19 12/25/2019 12/25/2019 12/26/2019 2:46 PM CDT R/O COVID-19 05/09/2020 05/09/2020 05/09/2020 12:1 7 PM ROCK ROOM WORKER documented as of this encounter Care Teams Goal Umpire Relationship Specialty Start Date End Date Dara Tavera FNP [address] [place] [phone] PCP - General NURSE PRACTITIONER 10/13/18 documented as of this encounter
--- OUTSIDE RECORDS SUMMARY | 2025-02-09 22:58 | XMS_ITS | Encounter Summary ---
Author Organization [facility] Address [address] [place] [address] Care Team Providers Care Flight Operations Specialist Name Role Phone Dara Tavera AMANDEEP Primary Care Provider Encounter Details Date Type Department Care Team (Latest Contact Info) Description 12/08/2003 Inpatient Historical [facility] [address] [place] [phone] Robel Samuel MD [address] [place] [address] DRUG DEPRESSIVE SYNDROME (CMS/HCC) (Primary Dx) Social History Tobacco Use Types Packs/Day Years Used Date Smoking Tobacco: Never Assessed Comments Unknown Sex and Gender Information Value Date Recorded Sex Assigned at Not on file Legal Sex Female 5:22 AM SCENIC DESIGNER Gender Identity Not on file Sexual Orientation Not on file documented as of this encounter Plan of Treatment Not on file documented as of this encounter Visit Diagnoses Diagnosis 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/HCC)- Primary Drug-induced mood disorder documented in this encounter Additional Health Concerns Infection Onset Date Last Indicated Resolved Time VRE Comment:Urine 10/30/13 Resolved 11/04/2013 11/04/2013 8 10:33 AM SCENIC DESIGNER R/O COVID-19 12/25/2019 12/25/2019 12/26/2019 2:4 6 PM CDT R/O COVID-19 05/09/2020 05/09/2020 05/09/2020 12:1 7 PM SCENIC DESIGNER documented as of this encounter Care Teams Flight Operations Specialist Relationship Specialty Start Date End Date Dara Tavera FNP [address] [place] [address] PCP - General NURSE PRACTITIONER 10/13/18 documented as of this encounter
--- OUTSIDE RECORDS SUMMARY | 2025-02-09 22:58 | XMS_ITS | Encounter Summary ---
Author Organization [facility] Address [address] [place] [address] Care Team Providers Care Retail Store Clerk Name Role Phone Dara Tavera Primary Care Provider Encounter Details Date Type Department Care Team (Latest Contact Info) Description 04/28/2005 Outpatient Historical [facility] [address] [place] [address] Krissy Pickard FNP [address] [facility] [address] [place] [address] ENTHESOPATHY OF HIP (Primary Dx) Social History Tobacco Use Types Packs/Day Years Used Date Smoking Tobacco: Never Assessed Comments Unknown Sex and Gender Information Value Date Recorded Sex Assigned at Not on file Legal Sex Female 5:22 AM SENIOR ENVIRONMENTAL TECHNICIAN Gender Identity Not on file Sexual Orientation Not on file documented as of this encounter Plan of Treatment Not on file documented as of this encounter Visit Diagnoses Diagnosis Enthesopathy of hip region- Primary documented in this encounter Additional Health Concerns Infection Onset Date Last Indicated Resolved Time VRE Comment:Urine 10/30/13 Resolved 11/04/2013 11/04/2013 8 10:33 AM SENIOR ENVIRONMENTAL TECHNICIAN R/O COVID-19 12/25/2019 12/25/2019 12/26/2019 2:46 PM CDT R/O COVID-19 05/09/2020 05/09/2020 05/09/2020 12:1 7 PM SENIOR ENVIRONMENTAL TECHNICIAN documented as of this encounter Care Teams Retail Store Clerk Relationship Specialty Start Date End Date Dara Tavera FNP [address] [place] [phone] PCP - General NURSE PRACTITIONER 10/13/18 documented as of this encounter
--- OUTSIDE RECORDS SUMMARY | 2025-02-09 22:58 | XMS_ITS | Encounter Summary ---
Author Organization [facility] Address [address] [place] [address] Care Team Providers Care Dubbing Machine Operator Name Role Phone Dara Tavera AMANDEEP Primary Care Provider [phone] Encounter Details Date Type Department Care Team (Latest Contact Info) Description 03/07/[address] [facility] Pain Management- [place] [address] [place] [address] Prasad Carpenter MD NO ADDRESS ON FILE Lumbosacral spondylosis (Primary Dx); LUMBAGO; LUMB/LUMBOSAC DISC DEGEN; OTHER BACK SYMPTOMS Social History Tobacco Use Types Packs/Day Years Used Date Smoking Tobacco: Never Assessed Comments Unknown Sex and Gender Information Value Date Recorded Sex Assigned at Not on file Legal Sex Female 5:22 AM AUTO CARE CENTER MANAGER Gender Identity Not on file Sexual Orientation Not on file documented as of this encounter Plan of Treatment Not on file documented as of this encounter Visit Diagnoses Diagnosis Lumbosacral spondylosis- Primary Lumbosacral spondylosis without myelopathy Lumbago Degeneration of lumbar or lumbosacral intervertebral disc Other symptoms referable to back documented in this encounter Additional Health Concerns Infection Onset Date Last Indicated Resolved Time VRE Comment:Urine 10/30/13 Resolved 11/04/2013 11/04/2013 8 10:33 AM AUTO CARE CENTER MANAGER R/O COVID-19 12/25/2019 12/25/2019 12/26/2019 2:46 PM CDT R/O COVID-19 05/09/2020 05/09/2020 05/09/2020 12:1 7 PM AUTO CARE CENTER MANAGER documented as of this encounter Care Teams Dubbing Machine Operator Relationship Specialty Start Date End Date Dara Tavera FNP [address] [place] [phone] PCP - General NURSE PRACTITIONER 10/13/18 documented as of this encounter
--- OUTSIDE RECORDS SUMMARY | 2025-02-09 22:58 | XMS_ITS | Encounter Summary ---
Author Organization [facility] Address [address] [place] [address] Care Team Providers Care Stock Associate Name Role Phone Dara Tavera Primary Care Provider [phone] Encounter Details Date Type Department Care Team (Latest Contact Info) Description 10/22/2004 Outpatient Historical [facility] [place] [address] [facility] [address] [place] [address] Ryan Don NP NO ADDRESS ON FILE LUMP OR MASS IN BREAST (Primary Dx) Social History Tobacco Use Types Packs/Day Years Used Date Smoking Tobacco: Never Assessed Comments Unknown Sex and Gender Information Value Date Recorded Sex Assigned at Not on file Legal Sex Female 5:22 AM DIRECTOR REGULATORY COMPLIANCE Gender Identity Not on file Sexual Orientation Not on file documented as of this encounter Plan of Treatment Not on file documented as of this encounter Visit Diagnoses Diagnosis Lump or mass in breast- Primary documented in this encounter Additional Health Concerns Infection Onset Date Last Indicated Resolved Time VRE Comment:Urine 10/30/13 Resolved 11/04/2013 11/04/2013 8 10:33 AM DIRECTOR REGULATORY COMPLIANCE R/O COVID-19 12/25/2019 12/25/2019 12/26/2019 2:46 PM CDT R/O COVID-19 05/09/2020 05/09/2020 05/09/2020 12:1 7 PM DIRECTOR REGULATORY COMPLIANCE documented as of this encounter Care Teams Stock Associate Relationship Specialty Start Date End Date Dara Tavera FNP [address] [place] [address] PCP - General NURSE PRACTITIONER 10/13/18 documented as of this encounter
--- OUTSIDE RECORDS SUMMARY | 2025-02-09 22:58 | XMS_ITS | Encounter Summary ---
Author Organization [facility] Address [address] [place] [address] Care Team Providers Care Quality Internship Name Role Phone Dara Tavera Primary Care Provider [phone] Encounter Details Date Type Department Care Team (Latest Contact Info) Description 01/14/2005 Outpatient Historical [facility] [address] [place] [id number] Faiza Petersen MD NO ADDRESS ON FILE LUMBAGO (Primary Dx); NEURALGIA/NEURITIS NOS Social History Tobacco Use Types Packs/Day Years Used Date Smoking Tobacco: Never Assessed Comments Unknown Sex and Gender Information Value Date Recorded Sex Assigned at Not on file Legal Sex Female 5:22 AM MECHANIC WELDER TRUCK DRIVER Gender Identity Not on file Sexual Orientation Not on file documented as of this encounter Plan of Treatment Not on file documented as of this encounter Visit Diagnoses Diagnosis Lumbago- Primary Neuralgia, neuritis, and radiculitis, unspecified documented in this encounter Additional Health Concerns Infection Onset Date Last Indicated Resolved Time VRE Comment:Urine 10/30/13 Resolved 11/04/2013 11/04/2013 8 10:33 AM MECHANIC WELDER TRUCK DRIVER R/O COVID-19 12/25/2019 12/25/2019 12/26/2019 2:46 PM CDT R/O COVID-19 05/09/2020 05/09/2020 05/09/2020 12:1 7 PM MECHANIC WELDER TRUCK DRIVER documented as of this encounter Care Teams Quality Internship Relationship Specialty Start Date End Date Dara Tavera FNP [address] [place] [address] PCP - General NURSE PRACTITIONER 10/13/18 documented as of this encounter
--- OUTSIDE RECORDS SUMMARY | 2025-02-09 22:58 | XMS_ITS | Encounter Summary ---
Author Organization [facility] Address [address] [place] [address] Care Team Providers Care Waste Disposal Leakage Tester Name Role Phone Dara Tavera Primary Care Provider Encounter Details Date Type Department Care Team (Late st Contact Info) Description 01/04/2004 Outpatient Historical [facility] Behavioral Clinical Services [address] [place] [address] Hood Kerr Jr., MD [address] [place] [address] Social History Tobacco Use Types Packs/Day Years Used Date Smoking Tobacco: Never Assessed Comments Unknown Sex and Gender Information Value Date Recorded Sex Assigned at Not on file Legal Sex Female 5:22 AM ACTUARIAL SCIENCE PROFESSOR Gender Identity Not on file Sexual Orientation Not on file documented as of this encounter Plan of Treatment Not on file documented as of this encounter Visit Diagnoses Not on filedocumented in this encounter Additional Health Concerns Infection Onset Date Last Indicated Resolved Time VRE Comment:Urine 10/30/13 Resolved 11/04/2013 11/04/2013 8 10:33 AM ACTUARIAL SCIENCE PROFESSOR R/O COVID-19 12/25/2019 12/25/2019 12/26/2019 2:46 PM CDT R/O COVID-19 05/09/2020 05/09/2020 05/09/2020 12:1 7 PM ACTUARIAL SCIENCE PROFESSOR documented as of this encounter Care Teams Waste Disposal Leakage Tester Relationship Specialty Start Date End Date Dara Tavera FNP [address] [place] [phone] PCP - General NURSE PRACTITIONER 10/13/18 documented as of this encounter
--- OUTSIDE RECORDS SUMMARY | 2025-02-09 22:58 | XMS_ITS | Encounter Summary ---
Author Organization [facility] Address [address] [place] [address] Care Team Providers Care Organ Teacher Name Role Phone Dara Tavera Primary Care Provider Encounter Details Date Type Department Care Team (Latest Contact Info) Description 05/12/2004 Outpatient Historical [facility] [address] [place] [address] AMBULANCE, [facility] CHEST PAIN NOS (Primary Dx) Social History Tobacco Use Types Packs/Day Years Used Date Smoking Tobacco: Never Assessed Comments Unknown Sex and Gender Information Value Date Recorded Sex Assigned at Not on file Legal Sex Female 5:22 AM LAB SUPPORT SERVICE TECH Gender Identity Not on file Sexual Orientation Not on file documented as of this encounter Plan of Treatment Not on file documented as of this encounter Visit Diagnoses Diagnosis Chest pain, unspecified- Primary documented in this encounter Additional Health Concerns Infection Onset Date Last Indicated Resolved Time VRE Comment:Urine 10/30/13 Resolved 11/04/2013 11/04/2013 8 10:33 AM LAB SUPPORT SERVICE TECH R/O COVID-19 12/25/2019 12/25/2019 12/26/2019 2:46 PM CDT R/O COVID-19 05/09/2020 05/09/2020 05/09/2020 12:1 7 PM LAB SUPPORT SERVICE TECH documented as of this encounter Care Teams Organ Teacher Relationship Specialty Start Date End Date Dara Tavera FNP [address] [place] [phone] PCP - General NURSE PRACTITIONER 10/13/18 documented as of this encounter
--- OUTSIDE RECORDS SUMMARY | 2025-02-09 22:58 | XMS_ITS | Encounter Summary ---
Author Organization [facility] Address [address] [place] [address] Care Team Providers Care Stars Coordinator Name Role Phone Dara Tavera Primary Care Provider Encounter Details Date Type Department Care Team (Latest Contact Info) Description 11/25/2004 Outpatient Historical [facility] [address] [place] [address] AMBULANCE, [facility] NONPSYCHOTIC MENTAL DISORDER NOS (Primary Dx) Social History Tobacco Use Types Packs/Day Years Used Date Smoking Tobacco: Never Assessed Comments Unknown Sex and Gender Information Value Date Recorded Sex Assigned at Not on file Legal Sex Female 5:22 AM PHYSICS PROFESSOR Gender Identity Not on file Sexual Orientation Not on file documented as of this encounter Plan of Treatment Not on file documented as of this encounter Visit Diagnoses Diagnosis Unspecified nonpsychotic mental disorder- Primary documented in this encounter Additional Health Concerns Infection Onset Date Last Indicated Resolved Time VRE Comment:Urine 10/30/13 Resolved 11/04/2013 11/04/2013 8 10:33 AM PHYSICS PROFESSOR R/O COVID-19 12/25/2019 12/25/2019 12/26/2019 2:46 PM CDT R/O COVID-19 05/09/2020 05/09/2020 05/09/2020 12:1 7 PM PHYSICS PROFESSOR documented as of this encounter Care Teams Stars Coordinator Relationship Specialty Start Date End Date Dara Tavera FNP [address] [place] [address] PCP - General NURSE PRACTITIONER 10/13/18 documented as of this encounter
--- OUTSIDE RECORDS SUMMARY | 2025-02-09 22:58 | XMS_ITS | Encounter Summary ---
Author Organization [facility] Address [address] [place] [address] Care Team Providers Care Senior Software Qa Analyst Name Role Phone Dara Tavera Primary Care Provider Encounter Details Date Type Department Care Team (Late st Contact Info) Description 02/22/2005 Outpatient Historical [facility] [place] [address] [facility] [address] [place] [address] Social History Tobacco Use Types Packs/Day Years Used Date Smoking Tobacco: Never Assessed Comments Unknown Sex and Gender Information Value Date Recorded Sex Assigned at Not on file Legal Sex Female 5:22 AM INSTANT PRINT OPERATOR Gender Identity Not on file Sexual Orientation Not on file documented as of this encounter Plan of Treatment Not on file documented as of this encounter Visit Diagnoses Not on filedocumented in this encounter Additional Health Concerns Infection Onset Date Last Indicated Resolved Time VRE Comment:Urine 10/30/13 Resolved 11/04/2013 11/04/2013 8 10:33 AM INSTANT PRINT OPERATOR R/O COVID-19 12/25/2019 12/25/2019 12/26/2019 2:46 PM CDT R/O COVID-19 05/09/2020 05/09/2020 05/09/2020 12:1 7 PM INSTANT PRINT OPERATOR documented as of this encounter Care Teams Senior Software Qa Analyst Relationship Specialty Start Date End Date Dara Tavera FNP [address] [place] [phone] PCP - General NURSE PRACTITIONER 10/13/18 documented as of this encounter
--- OUTSIDE RECORDS SUMMARY | 2025-02-09 22:58 | XMS_ITS | Encounter Summary ---
Author Organization [facility] Address [address] [place] [address] Care Team Providers Care Communications Attendant Name Role Phone Dara Tavera Primary Care Provider Encounter Details Date Type Department Care Team (Latest Contact Info) Description 03/07/2005 Outpatient Historical [facility] Pain Management Procedures [address] [place] [address] Prasad Carpenter MD NO ADDRESS ON FILE LUMBOSACRAL NEURITIS NOS (Primary Dx) Social History Tobacco Use Types Packs/Day Years Used Date Smoking Tobacco: Never Assessed Comments Unknown Sex and Gender Information Value Date Recorded Sex Assigned at Not on file Legal Sex Female 5:22 AM FIRE CLAIMS ADJUSTER Gender Identity Not on file Sexual Orientation Not on file documented as of this encounter Plan of Treatment Not on file documented as of this encounter Visit Diagnoses Diagnosis Thoracic or lumbosacral neuritis or radiculitis, unspecified- Primary documented in this encounter Additional Health Concerns Infection Onset Date Last Indicated Resolved Time VRE Comment:Urine 10/30/13 Resolved 11/04/2013 11/04/2013 8 10:33 AM FIRE CLAIMS ADJUSTER R/O COVID-19 12/25/2019 12/25/2019 12/26/2019 2:46 PM CDT R/O COVID-19 05/09/2020 05/09/2020 05/09/2020 12:1 7 PM FIRE CLAIMS ADJUSTER documented as of this encounter Care Teams Communications Attendant Relationship Specialty Start Date End Date Dara Tavera FNP [address] [place] [address] PCP - General NURSE PRACTITIONER 10/13/18 documented as of this encounter
--- OUTSIDE RECORDS SUMMARY | 2025-02-09 22:58 | XMS_ITS | Encounter Summary ---
Author Organization [facility] Address [address] [place] [address] Care Team Providers Care Strategic Sourcing Specialist Name Role Phone Dara Tavera Primary Care Provider Encounter Details Date Type Department Care Team (Latest Contact Info) Description 08/15/2004 Outpatient Historical [facility] [address] [place] [address] AMBULANCE, [facility] SYNCOPE AND COLLAPSE (Primary Dx) Social History Tobacco Use Types Packs/Day Years Used Date Smoking Tobacco: Never Assessed Comments Unknown Sex and Gender Information Value Date Recorded Sex Assigned at Not on file Legal Sex Female 5:22 AM DRYING MACHINE TENDER Gender Identity Not on file Sexual Orientation Not on file documented as of this encounter Plan of Treatment Not on file documented as of this encounter Visit Diagnoses Diagnosis Syncope and collapse- Primary documented in this encounter Additional Health Concerns Infection Onset Date Last Indicated Resolved Time VRE Comment:Urine 10/30/13 Resolved 11/04/2013 11/04/2013 8 10:33 AM DRYING MACHINE TENDER R/O COVID-19 12/25/2019 12/25/2019 12/26/2019 2:46 PM CDT R/O COVID-19 05/09/2020 05/09/2020 05/09/2020 12:1 7 PM DRYING MACHINE TENDER documented as of this encounter Care Teams Strategic Sourcing Specialist Relationship Specialty Start Date End Date Dara Tavera FNP [address] [place] [phone] PCP - General NURSE PRACTITIONER 10/13/18 documented as of this encounter
--- OUTSIDE RECORDS SUMMARY | 2025-02-09 22:58 | XMS_ITS | Encounter Summary ---
Author Organization [facility] Address [address] [place] [address] Care Team Providers Care Underground Production Foreperson Name Role Phone Dara Tavera Primary Care Provider Encounter Details Date Type Department Care Team (Latest Contact Info) Description 05/16/2005 Outpatient Historical [facility] Pain Management Procedures [address] [place] [address] Prasad Carpenter MD NO ADDRESS ON FILE DISORDERS OF SACRUM (Primary Dx) Social History Tobacco Use Types Packs/Day Years Used Date Smoking Tobacco: Never Assessed Comments Unknown Sex and Gender Information Value Date Recorded Sex Assigned at Not on file Legal Sex Female 5:22 AM DIRECTOR OF COMMUNICATIONS Gender Identity Not on file Sexual Orientation Not on file documented as of this encounter Plan of Treatment Not on file documented as of this encounter Visit Diagnoses Diagnosis Disorders of sacrum- Primary documented in this encounter Additional Health Concerns Infection Onset Date Last Indicated Resolved Time VRE Comment:Urine 10/30/13 Resolved 11/04/2013 11/04/2013 8 10:33 AM DIRECTOR OF COMMUNICATIONS R/O COVID-19 12/25/2019 12/25/2019 12/26/2019 2:46 PM CDT R/O COVID-19 05/09/2020 05/09/2020 05/09/2020 12:1 7 PM DIRECTOR OF COMMUNICATIONS documented as of this encounter Care Teams Underground Production Foreperson Relationship Specialty Start Date End Date Dara Tavera FNP [address] [place] [address] PCP - General NURSE PRACTITIONER 10/13/18 documented as of this encounter
--- OUTSIDE RECORDS SUMMARY | 2025-02-09 22:58 | XMS_ITS | Encounter Summary ---
Author Organization [facility] Address [address] [place] [address] Care Team Providers Care Port Traffic Manager Name Role Phone Dara Tavera Primary Care Provider Encounter Details Date Type Department Care Team (Latest Contact Info) Description 01/21/2004 Outpatient Historical [facility] [address] [place] [address] AMBULANCE, [facility] CONVULSIONS, OTHER (CMS/HCC) (Primary Dx) Social History Tobacco Use Types Packs/Day Years Used Date Smoking Tobacco: Never Assessed Comments Unknown Sex and Gender Information Value Date Recorded Sex Assigned at Not on file Legal Sex Female 5:22 AM RESEARCH SCIENTIST Gender Identity Not on file Sexual Orientation Not on file documented as of this encounter Plan of Treatment Not on file documented as of this encounter Visit Diagnoses Diagnosis Other convulsions- Primary documented in this encounter Additional Health Concerns Infection Onset Date Last Indicated Resolved Time VRE Comment:Urine 10/30/13 Resolved 11/04/2013 11/04/2013 8 10:33 AM RESEARCH SCIENTIST R/O COVID-19 12/25/2019 12/25/2019 12/26/2019 2:46 PM CDT R/O COVID-19 05/09/2020 05/09/2020 05/09/2020 12:1 7 PM RESEARCH SCIENTIST documented as of this encounter Care Teams Port Traffic Manager Relationship Specialty Start Date End Date Dara Tavera FNP [address] [place] [phone] PCP - General NURSE PRACTITIONER 10/13/18 documented as of this encounter
--- OUTSIDE RECORDS SUMMARY | 2025-02-09 22:58 | XMS_ITS | Encounter Summary ---
Author Organization [facility] Address [address] [place] [address] Care Team Providers Care Manufacturing Engineer Paint Name Role Phone Dara Tavera Primary Care Provider Encounter Details Date Type Department Care Team (Late st Contact Info) Description 02/22/2005 Outpatient Historical [facility] Faiza Petersen MD NO ADDRESS ON FILE Social History Tobacco Use Types Packs/Day Years Used Date Smoking Tobacco: Never Assessed Comments Unknown Sex and Gender Information Value Date Recorded Sex Assigned at Not on file Legal Sex Female 5:22 AM BUSINESS PROCESS MODELER Gender Identity Not on file Sexual Orientation Not on file documented as of this encounter Plan of Treatment Not on file documented as of this encounter Visit Diagnoses Not on filedocumented in this encounter Additional Health Concerns Infection Onset Date Last Indicated Resolved Time VRE Comment:Urine 10/30/13 Resolved 11/04/2013 11/04/2013 8 10:33 AM BUSINESS PROCESS MODELER R/O COVID-19 12/25/2019 12/25/2019 12/26/2019 2:46 PM CDT R/O COVID-19 05/09/2020 05/09/2020 05/09/2020 12:1 7 PM BUSINESS PROCESS MODELER documented as of this encounter Care Teams Manufacturing Engineer Paint Relationship Specialty Start Date End Date Dara Tavera FNP [address] [place] [phone] PCP - General NURSE PRACTITIONER 10/13/18 documented as of this encounter
--- OUTSIDE RECORDS SUMMARY | 2025-02-09 22:58 | XMS_ITS | Encounter Summary ---
Author Organization [facility] Address [address] [place] [address] Care Team Providers Care Manager Educational Name Role Phone Dara Tavera DELIVERY DRIVER Primary Care Provider Encounter Details Date Type Department Care Team (Latest Contact Info) Description 02/10/2005 Outpatient Historical [facility] [place] [address] [facility] [address] [place] [address] Faiza Petersen MD NO ADDRESS ON FILE ALLERGIC RHINITIS NOS (Primary Dx); HEADACHE; AFTERCARE SIMPLEX PRINTER INSTALLER USE MEDICATN; CONVULSIONS N[facility] ([facility] Social History Tobacco Use Types Packs/Day Years Used Date Smoking Tobacco: Never Assessed Comments Unknown Sex and Gender Information Value Date Recorded Sex Assigned at Not on file Legal Sex Female 5:22 AM TRIMMER CLIMBER Gender Identity Not on file Sexual Orientation Not on file documented as of this encounter Plan of Treatment Not on file documented as of this encounter Visit Diagnoses Diagnosis Allergic rhinitis, cause unspecified- Primary Headache(784.0) Headache Encounter for long-term (current) use of other medications Other convulsions documented in this encounter Additional Health Concerns Infection Onset Date Last Indicated Resolved Time VRE Comment:Urine 10/30/13 Resolved 11/04/2013 11/04/2013 8 10:33 AM TRIMMER CLIMBER R/O COVID-19 12/25/2019 12/25/2019 12/26/2019 2:46 PM CDT R/O COVID-19 05/09/2020 05/09/2020 05/09/2020 12:1 7 PM TRIMMER CLIMBER documented as of this encounter Care Teams Manager Educational Relationship Specialty Start Date End Date Dara Tavera FNP [address] [place] [phone] PCP - General NURSE PRACTITIONER 10/13/18 documented as of this encounter
--- OUTSIDE RECORDS SUMMARY | 2025-02-09 22:58 | XMS_ITS | Encounter Summary ---
Author Organization [facility] Address [address] [place] [address] Care Team Providers Care Director Of Materials Management Name Role Phone Dara Tavera AMANDEEP Primary Care Provider Encounter Details Date Type Department Care Team (Latest Contact Info) Description 02/24/2005 Outpatient Historical [facility] Pain Management- [place] [address] [place] [address] Prasad Carpenter MD NO ADDRESS ON FILE OTHER BACK SYMPTOMS (Primary Dx); LUMB/LUMBOSAC DISC DEGEN; LUMBAGO; Lumbosacral spondylosis Social History Tobacco Use Types Packs/Day Years Used Date Smoking Tobacco: Never Assessed Comments Unknown Sex and Gender Information Value Date Recorded Sex Assigned at Not on file Legal Sex Female 5:22 AM INTERN RETAIL Gender Identity Not on file Sexual Orientation Not on file documented as of this encounter Plan of Treatment Not on file documented as of this encounter Visit Diagnoses Diagnosis Other symptoms referable to back- Primary Degeneration of lumbar or lumbosacral intervertebral disc Lumbago Lumbosacral spondylosis Lumbosacral spondylosis without myelopathy documented in this encounter Additional Health Concerns Infection Onset Date Last Indicated Resolved Time VRE Comment:Urine 10/30/13 Resolved 11/04/2013 11/04/2013 8 10:33 AM INTERN RETAIL R/O COVID-19 12/25/2019 12/25/2019 12/26/2019 2:46 PM CDT R/O COVID-19 05/09/2020 05/09/2020 05/09/2020 12:1 7 PM INTERN RETAIL documented as of this encounter Care Teams Director Of Materials Management Relationship Specialty Start Date End Date Dara Tavera FNP [address] [place] [phone] PCP - General NURSE PRACTITIONER 10/13/18 documented as of this encounter
--- OUTSIDE RECORDS SUMMARY | 2025-02-09 22:58 | XMS_ITS | Encounter Summary ---
Author Organization [facility] Address [address] [place] [address] Care Team Providers Care Match Up Person Name Role Phone Dara Tavera Primary Care Provider Encounter Details Date Type Department Care Team (Late st Contact Info) Description 05/30/2005 [facility]patient [facility] [address] [place] [address] Social History Tobacco Use Types Packs/Day Years Used Date Smoking Tobacco: Never Assessed Comments Unknown Sex and Gender Information Value Date Recorded Sex Assigned at Not on file Legal Sex Female 5:22 AM PHOTOVOLTAIC SUBCONTRACTOR Gender Identity Not on file Sexual Orientation Not on file documented as of this encounter Plan of Treatment Not on file documented as of this encounter Visit Diagnoses Not on filedocumented in this encounter Additional Health Concerns Infection Onset Date Last Indicated Resolved Time VRE Comment:Urine 10/30/13 Resolved 11/04/2013 11/04/2013 8 10:33 AM PHOTOVOLTAIC SUBCONTRACTOR R/O COVID-19 12/25/2019 12/25/2019 12/26/2019 2:46 PM CDT R/O COVID-19 05/09/2020 05/09/2020 05/09/2020 12:1 7 PM PHOTOVOLTAIC SUBCONTRACTOR documented as of this encounter Care Teams Match Up Person Relationship Specialty Start Date End Date Dara Tavera FNP [address] [place] [phone] PCP - General NURSE PRACTITIONER 10/13/18 documented as of this encounter
--- OUTSIDE RECORDS SUMMARY | 2025-02-09 22:58 | XMS_ITS | Encounter Summary ---
Author Organization [facility] Address [address] [place] [address] Care Team Providers Care Product Management Specialist Name Role Phone Dara Tavera Primary Care Provider Encounter Details Date Type Department Care Team (Late st Contact Info) Description 12/10/2004 Outpatient Historical [facility] Faiza Petersen MD NO ADDRESS ON FILE Social History Tobacco Use Types Packs/Day Years Used Date Smoking Tobacco: Never Assessed Comments Unknown Sex and Gender Information Value Date Recorded Sex Assigned at Not on file Legal Sex Female 5:22 AM SAND BUFFER Gender Identity Not on file Sexual Orientation Not on file documented as of this encounter Plan of Treatment Not on file documented as of this encounter Visit Diagnoses Not on filedocumented in this encounter Additional Health Concerns Infection Onset Date Last Indicated Resolved Time VRE Comment:Urine 10/30/13 Resolved 11/04/2013 11/04/2013 8 10:33 AM SAND BUFFER R/O COVID-19 12/25/2019 12/25/2019 12/26/2019 2:46 PM CDT R/O COVID-19 05/09/2020 05/09/2020 05/09/2020 12:1 7 PM SAND BUFFER documented as of this encounter Care Teams Product Management Specialist Relationship Specialty Start Date End Date Dara Tavera FNP [address] [place] [phone] PCP - General NURSE PRACTITIONER 10/13/18 documented as of this encounter
--- OUTSIDE RECORDS SUMMARY | 2025-02-09 22:58 | XMS_ITS | Encounter Summary ---
Author Organization [facility] Address [address] [place] [address] Care Team Providers Care Outbound Sales Specialist Name Role Phone Dara Tavera Primary Care Provider Encounter Details Date Type Department Care Team (Latest Contact Info) Description 12/09/2004 Outpatient Historical [facility] [address] [facility] [address] [place] [address] Faiza Petersen MD NO ADDRESS ON FILE URIN TRACT INFECTION NOS (Primary Dx); ABDOMINAL PAIN UNSPEC SITE; ABDOMINAL TENDERNESS UNSP SITE Social History Tobacco Use Types Packs/Day Years Used Date Smoking Tobacco: Never Assessed Comments Unknown Sex and Gender Information Value Date Recorded Sex Assigned at Not on file Legal Sex Female 5:22 AM PELTS SKINNER Gender Identity Not on file Sexual Orientation Not on file documented as of this encounter Plan of Treatment Not on file documented as of this encounter Visit Diagnoses Diagnosis Urinary tract infection, site not specified- Primary Abdominal pain, unspecified site Abdominal tenderness, unspecified site documented in this encounter Additional Health Concerns Infection Onset Date Last Indicated Resolved Time VRE Comment:Urine 10/30/13 Resolved 11/04/2013 11/04/2013 8 10:33 AM PELTS SKINNER R/O COVID-19 12/25/2019 12/25/2019 12/26/2019 2:46 PM CDT R/O COVID-19 05/09/2020 05/09/2020 05/09/2020 12:1 7 PM PELTS SKINNER documented as of this encounter Care Teams Outbound Sales Specialist Relationship Specialty Start Date End Date Dara Tavera FNP [address] [place] [phone] PCP - General NURSE PRACTITIONER 10/13/18 documented as of this encounter
--- OUTSIDE RECORDS SUMMARY | 2025-02-09 22:58 | XMS_ITS | Encounter Summary ---
Author Organization [facility] Address [address] [place] [address] Care Team Providers Care Conduit Worker Name Role Phone Dara Tavera Primary Care Provider Encounter Details Date Type Department Care Team (Latest Contact Info) Description 05/20/2004 Outpatient Historical [facility] [address] [place] [address] AMBULANCE, [facility] CONVULSIONS, OTHER (CMS/HCC) (Primary Dx) Social History Tobacco Use Types Packs/Day Years Used Date Smoking Tobacco: Never Assessed Comments Unknown Sex and Gender Information Value Date Recorded Sex Assigned at Not on file Legal Sex Female 5:22 AM WORKFORCE CONSULTANT Gender Identity Not on file Sexual Orientation Not on file documented as of this encounter Plan of Treatment Not on file documented as of this encounter Visit Diagnoses Diagnosis Other convulsions- Primary documented in this encounter Additional Health Concerns Infection Onset Date Last Indicated Resolved Time VRE Comment:Urine 10/30/13 Resolved 11/04/2013 11/04/2013 8 10:33 AM WORKFORCE CONSULTANT R/O COVID-19 12/25/2019 12/25/2019 12/26/2019 2:46 PM CDT R/O COVID-19 05/09/2020 05/09/2020 05/09/2020 12:1 7 PM WORKFORCE CONSULTANT documented as of this encounter Care Teams Conduit Worker Relationship Specialty Start Date End Date Dara Tavera FNP [address] [place] [phone] PCP - General NURSE PRACTITIONER 10/13/18 documented as of this encounter
--- OUTSIDE RECORDS SUMMARY | 2025-02-09 22:58 | XMS_ITS | Encounter Summary ---
Author Organization [facility] Address [address] [place] [address] Care Team Providers Care Academic Support Coordinator Name Role Phone Dara Tavera Primary Care Provider [phone] Encounter Details Date Type Department Care Team (Latest Contact Info) Description 02/11/2004 Outpatient Historical [facility] [address] [place] [address] AMBULANCE, [facility] NONPSYCHOTIC MENTAL DISORDER NOS (Primary Dx) Social History Tobacco Use Types Packs/Day Years Used Date Smoking Tobacco: Never Assessed Comments Unknown Sex and Gender Information Value Date Recorded Sex Assigned at Not on file Legal Sex Female 5:22 AM STAVE HEWER Gender Identity Not on file Sexual Orientation Not on file documented as of this encounter Plan of Treatment Not on file documented as of this encounter Visit Diagnoses Diagnosis Unspecified nonpsychotic mental disorder- Primary documented in this encounter Additional Health Concerns Infection Onset Date Last Indicated Resolved Time VRE Comment:Urine 10/30/13 Resolved 11/04/2013 11/04/2013 8 10:33 AM STAVE HEWER R/O COVID-19 12/25/2019 12/25/2019 12/26/2019 2:46 PM CDT R/O COVID-19 05/09/2020 05/09/2020 05/09/2020 12:1 7 PM STAVE HEWER documented as of this encounter Care Teams Academic Support Coordinator Relationship Specialty Start Date End Date Dara Tavera FNP [address] [place] [address] PCP - General NURSE PRACTITIONER 10/13/18 documented as of this encounter
--- OUTSIDE RECORDS SUMMARY | 2025-02-09 22:58 | XMS_ITS | Encounter Summary ---
Author Organization [facility] Address [address] [place] [address] Care Team Providers Care Medical Record Retrieval Specialist Name Role Phone Dara Tavera [facility] Primary Care Provider Encounter Details Date Type Department Care Team (Latest Contact Info) Description 04/28/2005 Outpatient Historical [facility] Pain Management- [place] [address] [place] [address] Krissy Pickard FNP [address] [place], [place] [address] [address] [place] [address] LUMBAGO (Primary Dx); LUMBOSACRAL NEURITIS NOS; Enthesopathy of hip Social History Tobacco Use Types Packs/Day Years Used Date Smoking Tobacco: Never Assessed Comments Unknown Sex and Gender Information Value Date Recorded Sex Assigned at Not on file Legal Sex Female 5:22 AM DIE PRESSER Gender Identity Not on file Sexual Orientation Not on file documented as of this encounter Plan of Treatment Not on file documented as of this encounter Visit Diagnoses Diagnosis Lumbago- Primary Thoracic or lumbosacral neuritis or radiculitis, unspecified Enthesopathy of hip Enthesopathy of hip region documented in this encounter Additional Health Concerns Infection Onset Date Last Indicated Resolved Time VRE Comment:Urine 10/30/13 Resolved 11/04/2013 11/04/2013 8 10:33 AM DIE PRESSER R/O COVID-19 12/25/2019 12/25/2019 12/26/2019 2:46 PM CDT R/O COVID-19 05/09/2020 05/09/2020 05/09/2020 12:1 7 PM DIE PRESSER documented as of this encounter Care Teams Medical Record Retrieval Specialist Relationship Specialty Start Date End Date Dara Tavera FNP [address] [place] [address] PCP - General NURSE PRACTITIONER 10/13/18 documented as of this encounter
--- OUTSIDE RECORDS SUMMARY | 2025-02-09 22:58 | XMS_ITS | Encounter Summary ---
Author Organization [facility] Address [address] [place] [address] Care Team Providers Care Wood Boring Machine Operator Name Role Phone Dara Tavera Primary Care Provider Encounter Details Date Type Department Care Team (Latest Contact Info) Description 07/24/2004 Outpatient [facility] [address] [place] [address] AMBULANCE, [facility] CONVULSIONS, OTHER (CMS/HCC) (Primary Dx) Social History Tobacco Use Types Packs/Day Years Used Date Smoking Tobacco: Never Assessed Comments Unknown Sex and Gender Information Value Date Recorded Sex Assigned at Not on file Legal Sex Female 5:22 AM TANK CAR INSPECTOR Gender Identity Not on file Sexual Orientation Not on file documented as of this encounter Plan of Treatment Not on file documented as of this encounter Visit Diagnoses Diagnosis Other convulsions- Primary documented in this encounter Additional Health Concerns Infection Onset Date Last Indicated Resolved Time VRE Comment:Urine 10/30/13 Resolved 11/04/2013 11/04/2013 8 10:33 AM TANK CAR INSPECTOR R/O COVID-19 12/25/2019 12/25/2019 12/26/2019 2:46 PM CDT R/O COVID-19 05/09/2020 05/09/2020 05/09/2020 12:1 7 PM TANK CAR INSPECTOR documented as of this encounter Care Teams Wood Boring Machine Operator Relationship Specialty Start Date End Date Dara Tavera FNP [address] [place] [address] PCP - General NURSE PRACTITIONER 10/13/18 documented as of this encounter
--- OUTSIDE RECORDS SUMMARY | 2025-02-09 22:58 | XMS_ITS | Encounter Summary ---
Author Organization [employer] Address [address] [place] [address] Care Team Providers Care Resolution Expert Name Role Phone Dara Tavera Primary Care Provider Encounter Details Date Type Department Care Team (Late st Contact Info) Description 05/30/2005 Outpatient Historical [facility] Pain Management Procedures [address] [place] [address] Prasad Carpenter MD NO ADDRESS ON FILE Social History Tobacco Use Types Packs/Day Years Used Date Smoking Tobacco: Never Assessed Comments Unknown Sex and Gender Information Value Date Recorded Sex Assigned at Not on file Legal Sex Female 5:22 AM RECEIVING TELLER Gender Identity Not on file Sexual Orientation Not on file documented as of this encounter Plan of Treatment Not on file documented as of this encounter Visit Diagnoses Not on filedocumented in this encounter Additional Health Concerns Infection Onset Date Last Indicated Resolved Time VRE Comment:Urine 10/30/13 Resolved 11/04/2013 11/04/2013 8 10:33 AM RECEIVING TELLER R/O COVID-19 12/25/2019 12/25/2019 12/26/2019 2:46 PM CDT R/O COVID-19 05/09/2020 05/09/2020 05/09/2020 12:1 7 PM RECEIVING TELLER documented as of this encounter Care Teams Resolution Expert Relationship Specialty Start Date End Date Dara Tavera FNP [address] [place] [address] PCP - General NURSE PRACTITIONER 10/13/18 documented as of this encounter
--- OUTSIDE RECORDS SUMMARY | 2025-02-09 22:58 | XMS_ITS | Encounter Summary ---
Author Organization [facility] Address [address] [place] [address] Care Team Providers Care Steam Presser Name Role Phone Dara Tavera Primary Care Provider [phone] Encounter Details Date Type Department Care Team (Latest Contact Info) Description 12/01/2004 Outpatient Historical [facility] Family Medicine [place] [address] [facility] [address] [place] [address] Faiza Petersen MD NO ADDRESS ON FILE FEM PELV INFLAM DIS NOS (Primary Dx); ABDOMINAL PAIN UNSPEC SITE Social History Tobacco Use Types Packs/Day Years Used Date Smoking Tobacco: Never Assessed Comments Unknown Sex and Gender Information Value Date Recorded Sex Assigned at Not on file Legal Sex Female 5:22 AM CRO Gender Identity Not on file Sexual Orientation Not on file documented as of this encounter Plan of Treatment Not on file documented as of this encounter Visit Diagnoses Diagnosis Unspecified inflammatory disease of female pelvic organs and tissues- Primary Abdominal pain, unspecified site documented in this encounter Additional Health Concerns Infection Onset Date Last Indicated Resolved Time VRE Comment:Urine 10/30/13 Resolved 11/04/2013 11/04/2013 8 10:33 AM CRO R/O COVID-19 12/25/2019 12/25/2019 12/26/2019 2:46 PM CDT R/O COVID-19 05/09/2020 05/09/2020 05/09/2020 12:1 7 PM CRO documented as of this encounter Care Teams Steam Presser Relationship Specialty Start Date End Date Dara Tavera FNP [address] [place] [address] PCP - General NURSE PRACTITIONER 10/13/18 documented as of this encounter
--- OUTSIDE RECORDS SUMMARY | 2025-02-09 22:59 | XMS_ITS | Encounter Summary ---
Author Organization [facility] Address [address] [place] [address] Care Team Providers Care Deputy Commonwealth'S Attorney Name Role Phone Dara Tavera Primary Care Provider Encounter Details Date Type Department Care Team (Latest Contact Info) Description 05/22/2003 Outpatient Historical [facility] Urology- [address]tr[address], 3[address] [place] [address] Hossein Blair MD NO ADDRESS ON FILE FB bladder/urethra (Primary Dx); URGE & STRESS MIXED INCONTINENCE Social History Tobacco Use Types Packs/Day Years Used Date Smoking Tobacco: Never Assessed Comments Unknown Sex and Gender Information Value Date Recorded Sex Assigned at Not on file Legal Sex Female 5:22 AM ADVERTISING SPECIALIST Gender Identity Not on file Sexual Orientation Not on file documented as of this encounter Plan of Treatment Not on file documented as of this encounter Visit Diagnoses Diagnosis FB bladder/urethra- Primary Foreign body in bladder and urethra Mixed incontinence urge and stress (male)(female) documented in this encounter Additional Health Concerns Infection Onset Date Last Indicated Resolved Time VRE Comment:Urine 10/30/13 Resolved 11/04/2013 11/04/2013 8 10:33 AM ADVERTISING SPECIALIST R/O COVID-19 12/25/2019 12/25/2019 12/26/2019 2:46 PM CDT R/O COVID-19 05/09/2020 05/09/2020 05/09/2020 12:1 7 PM ADVERTISING SPECIALIST documented as of this encounter Care Teams Deputy Commonwealth'S Attorney Relationship Specialty Start Date End Date Dara Tavera FNP [address] [place] [phone] PCP - General NURSE PRACTITIONER 10/13/18 documented as of this encounter
--- OUTSIDE RECORDS SUMMARY | 2025-02-09 22:59 | XMS_ITS | Encounter Summary ---
Author Organization [facility] Address [address] [place] [address] Care Team Providers Care Cosmetology Professor Name Role Phone Dara Tavera Primary Care Provider Encounter Details Date Type Department Care Team (Latest Contact Info) Description 07/31/2003 Inpatient Historical [facility] Operating Room [address] [place] [address] Hossein Blair MD NO ADDRESS ON FILE FB BLADDER & URETHRA (Primary Dx) Social History Tobacco Use Types Packs/Day Years Used Date Smoking Tobacco: Never Assessed Comments Unknown Sex and Gender Information Value Date Recorded Sex Assigned at Not on file Legal Sex Female 5:22 AM PROJECT SAFETY MANAGER Gender Identity Not on file Sexual Orientation Not on file documented as of this encounter Plan of Treatment Not on file documented as of this encounter Visit Diagnoses Diagnosis Foreign body in bladder and urethra- Primary documented in this encounter Additional Health Concerns Infection Onset Date Last Indicated Resolved Time VRE Comment:Urine 10/30/13 Resolved 11/04/2013 11/04/2013 8 10:33 AM PROJECT SAFETY MANAGER R/O COVID-19 12/25/2019 12/25/2019 12/26/2019 2:46 PM CDT R/O COVID-19 05/09/2020 05/09/2020 05/09/2020 12:1 7 PM PROJECT SAFETY MANAGER documented as of this encounter Care Teams Cosmetology Professor Relationship Specialty Start Date End Date Dara Tavera FNP [address] [place] [address] PCP - General NURSE PRACTITIONER 10/13/18 documented as of this encounter
--- OUTSIDE RECORDS SUMMARY | 2025-02-09 22:59 | XMS_ITS | Encounter Summary ---
Author Organization [facility] Address [address] [place] [address] Care Team Providers Care Pulp Beater Name Role Phone Dara Tavera AMANDEEP Primary Care Provider Encounter Details Date Type Department Care Team (Latest Contact Info) Description 11/04/2002 Outpatient Historical [facility] Nose [facility] Th[facility] [place] [address] 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
--- OUTSIDE RECORDS SUMMARY | 2025-02-09 22:59 | XMS_ITS | Encounter Summary ---
Author Organization [facility] Address [address] [place] [address] Care Team Providers Care Bilingual Research Interviewer Name Role Phone Daar Tavera Primary Care Provider Encounter Details Date Type Department Care Team (Latest Contact Info) Description 05/16/2005 Outpatient Historical [facility] Pain Management- [place] [address] [place] [address] Prasad Carpenter MD NO ADDRESS ON FILE DISORDERS OF SACRUM (Primary Dx); LUMBAGO Social History Tobacco Use Types Packs/Day Years Used Date Smoking Tobacco: Never Assessed Comments Unknown Sex and Gender Information Value Date Recorded Sex Assigned at Not on file Legal Sex Female 5:22 AM BIOLOGICAL LAB TECHNICIAN Gender Identity Not on file Sexual Orientation Not on file documented as of this encounter Plan of Treatment Not on file documented as of this encounter Visit Diagnoses Diagnosis Disorders of sacrum- Primary Lumbago documented in this encounter Additional Health Concerns Infection Onset Date Last Indicated Resolved Time VRE Comment:Urine 10/30/13 Resolved 11/04/2013 11/04/2013 8 10:33 AM BIOLOGICAL LAB TECHNICIAN R/O COVID-19 12/25/2019 12/25/2019 12/26/2019 2:46 PM CDT R/O COVID-19 05/09/2020 05/09/2020 05/09/2020 12:1 7 PM BIOLOGICAL LAB TECHNICIAN documented as of this encounter Care Teams Bilingual Research Interviewer Relationship Specialty Start Date End Date Dara Tavera FNP [address] [place] [address] PCP - General NURSE PRACTITIONER 10/13/18 documented as of this encounter
--- OUTSIDE RECORDS SUMMARY | 2025-02-09 22:59 | XMS_ITS | Encounter Summary ---
Author Organization [facility] Address [address] [place] [address] Care Team Providers Care Human Service Coordinator Name Role Phone Dara Tavera Primary Care Provider Encounter Details Date Type Department Care Team (Latest Contact Info) Description 03/21/2005 Outpatient Historical [facility] [address] [place] [address] AMBULANCE, [facility] DEPRESSIVE DISORDER NEC (Primary Dx) Social History Tobacco Use Types Packs/Day Years Used Date Smoking Tobacco: Never Assessed Comments Unknown Sex and Gender Information Value Date Recorded Sex Assigned at Not on file Legal Sex Female 5:22 AM NITRIC ACID PLANT OPERATOR Gender Identity Not on file Sexual Orientation Not on file documented as of this encounter Plan of Treatment Not on file documented as of this encounter Visit Diagnoses Diagnosis Depressive disorder, not elsewhere classified- Primary documented in this encounter Additional Health Concerns Infection Onset Date Last Indicated Resolved Time VRE Comment:Urine 10/30/13 Resolved 11/04/2013 11/04/2013 8 10:33 AM NITRIC ACID PLANT OPERATOR R/O COVID-19 12/25/2019 12/25/2019 12/26/2019 2:46 PM CDT R/O COVID-19 05/09/2020 05/09/2020 05/09/2020 12:1 7 PM NITRIC ACID PLANT OPERATOR documented as of this encounter Care Teams Human Service Coordinator Relationship Specialty Start Date End Date Dara Tavera FNP [address] [place] [address] PCP - General NURSE PRACTITIONER 10/13/18 documented as of this encounter
--- OUTSIDE RECORDS SUMMARY | 2025-02-09 22:59 | XMS_ITS | Encounter Summary ---
Author Organization [facility] Address [address] [place] [address] Care Team Providers Care General Hardware Salesperson Name Role Phone Dara Tavera Primary Care Provider Encounter Details Date Type Department Care Team (Latest Contact Info) Description 07/24/2003 Outpatient Historical [facility], [facility] ABRASION FOREARM (Primary Dx) Social History Tobacco Use Types Packs/Day Years Used Date Smoking Tobacco: Never Assessed Comments Unknown Sex and Gender Information Value Date Recorded Sex Assigned at Not on file Legal Sex Female 5:22 AM PLASTIC SHEETING CUTTER Gender Identity Not on file Sexual Orientation Not on file documented as of this encounter Plan of Treatment Not on file documented as of this encounter Visit Diagnoses Diagnosis Elbow, forearm, and wrist, abrasion or friction burn, without mention of infection- Primary documented in this encounter Additional Health Concerns Infection Onset Date Last Indicated Resolved Time VRE Comment:Urine 10/30/13 Resolved 11/04/2013 11/04/2013 8 10:33 AM PLASTIC SHEETING CUTTER R/O COVID-19 12/25/2019 12/25/2019 12/26/2019 2:46 PM CDT R/O COVID-19 05/09/2020 05/09/2020 05/09/2020 12:1 7 PM PLASTIC SHEETING CUTTER documented as of this encounter Care Teams General Hardware Salesperson Relationship Specialty Start Date End Date Dara Tavera FNP [address] [place] [phone] PCP - General NURSE PRACTITIONER 10/13/18 documented as of this encounter
--- OUTSIDE RECORDS SUMMARY | 2025-02-09 22:59 | XMS_ITS | Encounter Summary ---
Author Organization [facility] Address [address] [place] [address] Care Team Providers Care After School Tutor Name Role Phone Dara Tavera Primary Care Provider Encounter Details Date Type Department Care Team (Latest Contact Info) Description 05/28/2003 Outpatient [facility] Behavioral Clinical Services [address] [place] [address] Oniel Upton MD NO ADDRESS ON FILE SCHIZOAFFECTIVE-UNSP EC ([facility]/HCC) (Primary Dx) Social History Tobacco Use Types Packs/Day Years Used Date Smoking Tobacco: Never Assessed Comments Unknown Sex and Gender Information Value Date Recorded Sex Assigned at Not on file Legal Sex Female 5:22 AM REGULATORY SUBMISSIONS ASSOCIATE Gender Identity Not on file Sexual Orientation Not on file documented as of this encounter Plan of Treatment Not on file documented as of this encounter Visit Diagnoses Diagnosis Schizoaffective disorder, unspecified condition ([facility]/HCC)- Primary Schizoaffective disorder, unspecified condition documented in this encounter Additional Health Concerns Infection Onset Date Last Indicated Resolved Time VRE Comment:Urine 10/30/13 Resolved 11/04/2013 11/04/2013 8 10:33 AM REGULATORY SUBMISSIONS ASSOCIATE R/O COVID-19 12/25/2019 12/25/2019 12/26/2019 2:46 PM CDT R/O COVID-19 05/09/2020 05/09/2020 05/09/2020 12:1 7 PM REGULATORY SUBMISSIONS ASSOCIATE documented as of this encounter Care Teams After School Tutor Relationship Specialty Start Date End Date Dara Tavera FNP [address] [place] [phone] PCP - General NURSE PRACTITIONER 10/13/18 documented as of this encounter
--- OUTSIDE RECORDS SUMMARY | 2025-02-09 22:59 | XMS_ITS | Encounter Summary ---
Author Organization [facility] Address [address] [place] [address] Care Team Providers Care Licensing Director Name Role Phone Dara Tavera Primary Care Provider Encounter Details Date Type Department Care Team (Latest Contact Info) Description 11/08/2002 Outpatient Historical [facility] Operating Room [address] [place] [address] Dmitri Vega MD [address] [place] [address] BENIGN NEOPLASM TONGUE (Primary Dx) Social History Tobacco Use Types Packs/Day Years Used Date Smoking Tobacco: Never Assessed Comments Unknown Sex and Gender Information Value Date Recorded Sex Assigned at Not on file Legal Sex Female 5:22 AM JOURNEYMAN OPERATOR ASSISTANT Gender Identity Not on file Sexual Orientation Not on file documented as of this encounter Plan of Treatment Not on file documented as of this encounter Visit Diagnoses Diagnosis Benign neoplasm of tongue- Primary documented in this encounter Additional Health Concerns Infection Onset Date Last Indicated Resolved Time VRE Comment:Urine 10/30/13 Resolved 11/04/2013 11/04/2013 8 10:33 AM JOURNEYMAN OPERATOR ASSISTANT R/O COVID-19 12/25/2019 12/25/2019 12/26/2019 2:46 PM CDT R/O COVID-19 05/09/2020 05/09/2020 05/09/2020 12:1 7 PM JOURNEYMAN OPERATOR ASSISTANT documented as of this encounter Care Teams Licensing Director Relationship Specialty Start Date End Date Dara Tavera FNP [address] [place] [phone] PCP - General NURSE PRACTITIONER 10/13/18 documented as of this encounter
--- OUTSIDE RECORDS SUMMARY | 2025-02-09 22:59 | XMS_ITS | Encounter Summary ---
Author Organization [facility] Address [address] [place] [address] Care Team Providers Care Data Control Assistant Name Role Phone Dara Tavera Primary Care Provider [phone] Encounter Details Date Type Department Care Team (Latest Contact Info) Description 07/28/2003 Outpatient Historical [facility] Pre[facility] [id number] [place] [address] Hossein Blair MD NO ADDRESS ON FILE PREOP EXAM OTHER SPECIFIED (Primary Dx) Social History Tobacco Use Types Packs/Day Years Used Date Smoking Tobacco: Never Assessed Comments Unknown Sex and Gender Information Value Date Recorded Sex Assigned at Not on file Legal Sex Female 5:22 AM BRUSH OR BROOM CUTTER Gender Identity Not on file Sexual Orientation Not on file documented as of this encounter Plan of Treatment Not on file documented as of this encounter Visit Diagnoses Diagnosis Other specified pre-operative examination- Primary documented in this encounter Additional Health Concerns Infection Onset Date Last Indicated Resolved Time VRE Comment:Urine 10/30/13 Resolved 11/04/2013 11/04/2013 8 10:33 AM BRUSH OR BROOM CUTTER R/O COVID-19 12/25/2019 12/25/2019 12/26/2019 2:46 PM CDT R/O COVID-19 05/09/2020 05/09/2020 05/09/2020 12:1 7 PM BRUSH OR BROOM CUTTER documented as of this encounter Care Teams Data Control Assistant Relationship Specialty Start Date End Date Dara Tavera FNP [address] [place] [address] PCP - General NURSE PRACTITIONER 10/13/18 documented as of this encounter
--- OUTSIDE RECORDS SUMMARY | 2025-02-09 22:59 | XMS_ITS | Encounter Summary ---
Author Organization [facility] Address [address] [place] [address] Care Team Providers Care Kit Planner Name Role Phone Dara Tavera Primary Care Provider Encounter Details Date Type Department Care Team (Latest Contact Info) Description 07/02/2003 Outpatient Historical [facility] Imaging Services [address] [place] [address] Hossein Blair MD NO ADDRESS ON FILE RENAL & URETERAL DIS NOS (Primary Dx) Social History Tobacco Use Types Packs/Day Years Used Date Smoking Tobacco: Never Assessed Comments Unknown Sex and Gender Information Value Date Recorded Sex Assigned at Not on file Legal Sex Female 5:22 AM SALVAGER HELPER Gender Identity Not on file Sexual Orientation Not on file documented as of this encounter Plan of Treatment Not on file documented as of this encounter Visit Diagnoses Diagnosis Unspecified disorder of kidney and ureter- Primary documented in this encounter Additional Health Concerns Infection Onset Date Last Indicated Resolved Time VRE Comment:Urine 10/30/13 Resolved 11/04/2013 11/04/2013 10:33 AM SALVAGER HELPER R/O COVID-19 12/25/2019 12/25/2019 12/26/2019 2:46 PM CDT R/O COVID-19 05/09/2020 05/09/2020 05/09/2020 12:1 7 PM SALVAGER HELPER documented as of this encounter Care Teams Kit Planner Relationship Specialty Start Date End Date Dara Tavera FNP [address] [place] [phone] PCP - General NURSE PRACTITIONER 10/13/18 documented as of this encounter
--- OUTSIDE RECORDS SUMMARY | 2025-02-09 22:59 | XMS_ITS | Encounter Summary ---
Author Organization [facility] Address [address] [place] [address] Care Team Providers Care Produce Assistant Name Role Phone Dara Tavera Primary Care Provider Encounter Details Date Type Department Care Team (Latest Contact Info) Description 09/25/2003 Outpatient Historical [facility] Urology- [address] Entrance [address], 3rd [place] [address] Hossein Blair MD NO ADDRESS ON FILE URGE & STRESS MIXED INCONTINENCE (Primary Dx) Social History Tobacco Use Types Packs/Day Years Used Date Smoking Tobacco: Never Assessed Comments Unknown Sex and Gender Information Value Date Recorded Sex Assigned at Not on file Legal Sex Female 5:22 AM CLINICAL ASSESSMENT MANAGER Gender Identity Not on file Sexual Orientation Not on file documented as of this encounter Plan of Treatment Not on file documented as of this encounter Visit Diagnoses Diagnosis Mixed incontinence urge and stress (male)(female)- Primary documented in this encounter Additional Health Concerns Infection Onset Date Last Indicated Resolved Time VRE Comment:Urine 10/30/13 Resolved 11/04/2013 11/04/2013 8 10:33 AM CLINICAL ASSESSMENT MANAGER R/O COVID-19 12/25/2019 12/25/2019 12/26/2019 2:46 PM CDT R/O COVID-19 05/09/2020 05/09/2020 05/09/2020 12:1 7 PM CLINICAL ASSESSMENT MANAGER documented as of this encounter Care Teams Produce Assistant Relationship Specialty Start Date End Date Dara Tavera FNP [address] [place] [phone] PCP - General NURSE PRACTITIONER 10/13/18 documented as of this encounter
--- OUTSIDE RECORDS SUMMARY | 2025-02-09 22:59 | XMS_ITS | Encounter Summary ---
Author Organization [facility] [place] [facility] Address [address] Attn: [place] [address] Care Team Providers Care Oracle Manager Name Role Phone Dara Tavera AMANDEEP Primary Care Provider Encounter Details Date Type Department Care Team (Late st Contact Info) Description 05/02/2003 Inpatient Historical Hood Kerr Jr., MD [address] [facility] [place] [address] SCHIZOAFF-SUBCHR/EXACER (CMS/[facility]) (Primary Dx) Social History Tobacco Use Types Packs/Day Years Used Date Smoking Tobacco: Never Assessed Comments Unknown Sex and Gender Information Value Date Recorded Sex Assigned at Not on file Legal Sex Female 5:22 AM SERVICE ATTENDANT Gender Identity Not on file Sexual Orientation Not on file documented as of this encounter Plan of Treatment Not on file documented as of this encounter Visit Diagnoses Diagnosis Schizoaffective disorder, subchronic condition with acute exacerbation (CMS/HCC)- Primary Schizoaffective disorder, subchronic condition with acute exacerbation documented in this encounter Additional Health Concerns Infection Onset Date Last Indicated Resolved Time VRE Comment:Urine 10/30/13 Resolved 11/04/2013 11/04/2013 8 10:33 AM SERVICE ATTENDANT R/O COVID-19 12/25/2019 12/25/2019 12/26/2019 2:46 PM CDT R/O COVID-19 05/09/2020 05/09/2020 05/09/2020 12:1 7 PM SERVICE ATTENDANT documented as of this encounter Care Teams Oracle Manager Relationship Specialty Start Date End Date Dara Tavera FNP [address] [place] [phone] PCP - General NURSE PRACTITIONER 10/13/18 documented as of this encounter
--- OUTSIDE RECORDS SUMMARY | 2025-02-09 22:59 | XMS_ITS | Encounter Summary ---
Author Organization [facility] Address [address] [place] [address] Care Team Providers Care Quality Assurance Inspector Name Role Phone Dara Tavera Primary Care Provider [phone] Encounter Details Date Type Department Care Team (Latest Contact Info) Description 12/07/2003 Outpatient Historical [facility] SCHIZOPHRENIA NOS-UNSPEC (CMS/HCC) (Primary Dx) Social History Tobacco Use Types Packs/Day Years Used Date Smoking Tobacco: Never Assessed Comments Unknown Sex and Gender Information Value Date Recorded Sex Assigned at Not on file Legal Sex Female 5:22 AM TUBE DEPATCHER Gender Identity Not on file Sexual Orientation Not on file documented as of this encounter Plan of Treatment Not on file documented as of this encounter Visit Diagnoses Diagnosis Unspecified schizophrenia, unspecified condition (CMS/HCC)- Primary Unspecified schizophrenia, unspecified condition documented in this encounter Additional Health Concerns Infection Onset Date Last Indicated Resolved Time VRE Comment:Urine 10/30/13 Resolved 11/04/2013 11/04/2013 8 10:33 AM TUBE DEPATCHER R/O COVID-19 12/25/2019 12/25/2019 12/26/2019 2:46 PM CDT R/O COVID-19 05/09/2020 05/09/2020 05/09/2020 12:1 7 PM TUBE DEPATCHER documented as of this encounter Care Teams Quality Assurance Inspector Relationship Specialty Start Date End Date Dara Tavera FNP [address] [place] [phone] PCP - General NURSE PRACTITIONER 10/13/18 documented as of this encounter
--- OUTSIDE RECORDS SUMMARY | 2025-02-09 22:59 | XMS_ITS | Encounter Summary ---
Author Organization [facility] Address [address] [place] [address] Care Team Providers Care Aircraft Engine Cylinder Mechanic Name Role Phone Dara Tavera Primary Care Provider Encounter Details Date Type Department Care Team (Latest Contact Info) Description 04/27/2003 Outpatient Historical [facility] Behavioral Clinical Services [address] [place] [address] Oniel Upton MD NO ADDRESS ON FILE SCHIZOAFFECTIVE-UNSP EC ([facility]/HCC) (Primary Dx) Social History Tobacco Use Types Packs/Day Years Used Date Smoking Tobacco: Never Assessed Comments Unknown Sex and Gender Information Value Date Recorded Sex Assigned at Not on file Legal Sex Female 5:22 AM CARDIAC TECH Gender Identity Not on file Sexual Orientation Not on file documented as of this encounter Plan of Treatment Not on file documented as of this encounter Visit Diagnoses Diagnosis Schizoaffective disorder, unspecified condition ([facility]/HCC)- Primary Schizoaffective disorder, unspecified condition documented in this encounter Additional Health Concerns Infection Onset Date Last Indicated Resolved Time VRE Comment:Urine 10/30/13 Resolved 11/04/2013 11/04/2013 8 10:33 AM CARDIAC TECH R/O COVID-19 12/25/2019 12/25/2019 12/26/2019 2:46 PM CDT R/O COVID-19 05/09/2020 05/09/2020 05/09/2020 12:1 7 PM CARDIAC TECH documented as of this encounter Care Teams Aircraft Engine Cylinder Mechanic Relationship Specialty Start Date End Date Dara Tavera FNP [address] [place] [phone] PCP - General NURSE PRACTITIONER 10/13/18 documented as of this encounter
--- OUTSIDE RECORDS SUMMARY | 2025-02-09 22:59 | XMS_ITS | Encounter Summary ---
Author Organization [facility] Address [address] [place] [address] Care Team Providers Care Oil Truck Driver Name Role Phone Dara Tavera Primary Care Provider Encounter Details Date Type Department Care Team (Latest Contact Info) Description 12/01/2003 Outpatient Historical [facility] Urology- [address]tr[address], 3[address] [place] [address] Hossein Blair MD NO ADDRESS ON FILE FEMALE STRESS INCONTINENCE (Primary Dx); ENURESIS NOS Social History Tobacco Use Types Packs/Day Years Used Date Smoking Tobacco: Never Assessed Comments Unknown Sex and Gender Information Value Date Recorded Sex Assigned at Not on file Legal Sex Female 5:22 AM RAILROAD CAR TRUCK BUILDER Gender Identity Not on file Sexual Orientation Not on file documented as of this encounter Plan of Treatment Not on file documented as of this encounter Visit Diagnoses Diagnosis Female stress incontinence- Primary Unspecified urinary incontinence documented in this encounter Additional Health Concerns Infection Onset Date Last Indicated Resolved Time VRE Comment:Urine 10/30/13 Resolved 11/04/2013 11/04/2013 8 10:33 AM RAILROAD CAR TRUCK BUILDER R/O COVID-19 12/25/2019 12/25/2019 12/26/2019 2:46 PM CDT R/O COVID-19 05/09/2020 05/09/2020 05/09/2020 12:1 7 PM RAILROAD CAR TRUCK BUILDER documented as of this encounter Care Teams Oil Truck Driver Relationship Specialty Start Date End Date Dara Tavera FNP [address] [place] [address] PCP - General NURSE PRACTITIONER 10/13/18 documented as of this encounter
--- OUTSIDE RECORDS SUMMARY | 2025-02-09 22:59 | XMS_ITS | Encounter Summary ---
Author Organization [facility] Address [address] [facility] Attn: [place] [address] Care Team Providers Care Assistant Project Manager Name Role Phone Dara Tavera Primary Care Provider Encounter Details Date Type Department Care Team ([facility] Contact Info) Description 02/13/2003 Inpatient Historical Oniel Upton MD NO ADDRESS ON FILE ACUTE SCHIZOPHRENIA-CHR (CMS/HCC) (Primary Dx) Social History Tobacco Use Types Packs/Day Years Used Date Smoking Tobacco: Never Assessed Comments Unknown Sex and Gender Information Value Date Recorded Sex Assigned at Not on file Legal Sex Female 5:22 AM MYCOLOGIST Gender Identity Not on file Sexual Orientation Not on file documented as of this encounter Plan of Treatment Not on file documented as of this encounter Visit Diagnoses Diagnosis Schizophreniform disorder, chronic condition (CMS/HCC)- Primary Schizophreniform disorder, chronic condition documented in this encounter Additional Health Concerns Infection Onset Date Last Indicated Resolved Time VRE Comment:Urine 10/30/13 Resolved 11/04/2013 11/04/2013 8 10:33 AM MYCOLOGIST R/O COVID-19 12/25/2019 12/25/2019 12/26/2019 2:46 PM CDT R/O COVID-19 05/09/2020 05/09/2020 05/09/2020 12:1 7 PM MYCOLOGIST documented as of this encounter Care Teams Assistant Project Manager Relationship Specialty Start Date End Date Dara Tavera FNP [address] [place] [phone] PCP - General NURSE PRACTITIONER 10/13/18 documented as of this encounter
--- OUTSIDE RECORDS SUMMARY | 2025-02-09 22:59 | XMS_ITS | Encounter Summary ---
Author Organization [facility] Address [address] [place] [address] Care Team Providers Care Soap Drier Operator Name Role Phone Dara Tavera Primary Care Provider Encounter Details Date Type Department Care Team (Latest Contact Info) Description 02/24/2003 Outpatient Historical [facility] Behavioral Clinical Services [address] [place] [address] Oniel Upton MD NO ADDRESS ON FILE SCHIZOAFFECTIVE-UNSP EC ([facility]/HCC) (Primary Dx) Social History Tobacco Use Types Packs/Day Years Used Date Smoking Tobacco: Never Assessed Comments Unknown Sex and Gender Information Value Date Recorded Sex Assigned at Not on file Legal Sex Female 5:22 AM DELI COOK Gender Identity Not on file Sexual Orientation Not on file documented as of this encounter Plan of Treatment Not on file documented as of this encounter Visit Diagnoses Diagnosis Schizoaffective disorder, unspecified condition ([facility]/HCC)- Primary Schizoaffective disorder, unspecified condition documented in this encounter Additional Health Concerns Infection Onset Date Last Indicated Resolved Time VRE Comment:Urine 10/30/13 Resolved 11/04/2013 11/04/2013 8 10:33 AM DELI COOK R/O COVID-19 12/25/2019 12/25/2019 12/26/2019 2:46 PM CDT R/O COVID-19 05/09/2020 05/09/2020 05/09/2020 12:1 7 PM DELI COOK documented as of this encounter Care Teams Soap Drier Operator Relationship Specialty Start Date End Date Dara Tavera FNP [address] [place] [phone] PCP - General NURSE PRACTITIONER 10/13/18 documented as of this encounter
--- OUTSIDE RECORDS SUMMARY | 2025-02-09 22:59 | XMS_ITS | Encounter Summary ---
Author Organization [facility] Address [address] [place] [address] Care Team Providers Care Continuous Still Operator Name Role Phone Dara Tavera CRANBERRY FARM SUPERVISOR Primary Care Provider Encounter Details Date Type Department Care Team (Latest Contact Info) Description 11/05/2002 Outpatient [facility] Imaging and Laboratory Services [address] [place] [address] Raúl Osullivan MD [address] [place], [place] [address] OTHER FUNCTIONAL DISORDER BLADDER (Primary Dx) Social History Tobacco Use Types Packs/Day Years Used Date Smoking Tobacco: Never Assessed Comments Unknown Sex and Gender Information Value Date Recorded Sex Assigned at Not on file Legal Sex Female 5:22 AM MACHINE STRIPER Gender Identity Not on file Sexual Orientation Not on file documented as of this encounter Plan of Treatment Not on file documented as of this encounter Visit Diagnoses Diagnosis Other functional disorder of bladder- Primary documented in this encounter Additional Health Concerns Infection Onset Date Last Indicated Resolved Time VRE Comment:Urine 10/30/13 Resolved 11/04/2013 11/04/2013 8 10:33 AM MACHINE STRIPER R/O COVID-19 12/25/2019 12/25/2019 12/26/2019 2:46 PM CDT R/O COVID-19 05/09/2020 05/09/2020 05/09/2020 12:1 7 PM MACHINE STRIPER documented as of this encounter Care Teams Continuous Still Operator Relationship Specialty Start Date End Date Dara Tavera FNP [address] [place] [phone] PCP - General NURSE PRACTITIONER 10/13/18 documented as of this encounter
--- OUTSIDE RECORDS SUMMARY | 2025-02-09 22:59 | XMS_ITS | Encounter Summary ---
Author Organization [facility] Address [address] [place] [address] Care Team Providers Care Fabrication And Assembly Supervisor Name Role Phone Dara Tavera Primary Care Provider Encounter Details Date Type Department Care Team (Latest Contact Info) Description 03/27/2003 Outpatient Historical [facility] Behavioral Clinical Services [address] [place] [address] Oniel Upton MD NO ADDRESS ON FILE SCHIZOAFFECTIVE-UNSP EC ([facility]/HCC) (Primary Dx) Social History Tobacco Use Types Packs/Day Years Used Date Smoking Tobacco: Never Assessed Comments Unknown Sex and Gender Information Value Date Recorded Sex Assigned at Not on file Legal Sex Female 5:22 AM ADOPTION WORKER Gender Identity Not on file Sexual Orientation Not on file documented as of this encounter Plan of Treatment Not on file documented as of this encounter Visit Diagnoses Diagnosis Schizoaffective disorder, unspecified condition ([facility]/HCC)- Primary Schizoaffective disorder, unspecified condition documented in this encounter Additional Health Concerns Infection Onset Date Last Indicated Resolved Time VRE Comment:Urine 10/30/13 Resolved 11/04/2013 11/04/2013 8 10:33 AM ADOPTION WORKER R/O COVID-19 12/25/2019 12/25/2019 12/26/2019 2:46 PM CDT R/O COVID-19 05/09/2020 05/09/2020 05/09/2020 12:1 7 PM ADOPTION WORKER documented as of this encounter Care Teams Fabrication And Assembly Supervisor Relationship Specialty Start Date End Date Dara Tavera FNP [address] [place] [phone] PCP - General NURSE PRACTITIONER 10/13/18 documented as of this encounter
--- OUTSIDE RECORDS SUMMARY | 2025-02-09 22:59 | XMS_ITS | Encounter Summary ---
Author Organization [facility] Address [address] [place] [address] Care Team Providers Care Photo Mask Inspector Name Role Phone Dara Tavera Primary Care Provider Encounter Details Date Type Department Care Team (Latest Contact Info) Description 08/08/2003 Outpatient Historical [facility] Urology- [address]tr[address], 3rd [place] [address] Hossein Blair MD NO ADDRESS ON FILE URGE & STRESS MIXED INCONTINENCE (Primary Dx) Social History Tobacco Use Types Packs/Day Years Used Date Smoking Tobacco: Never Assessed Comments Unknown Sex and Gender Information Value Date Recorded Sex Assigned at Not on file Legal Sex Female 5:22 AM MONTESSORI LEAD TEACHER Gender Identity Not on file Sexual Orientation Not on file documented as of this encounter Plan of Treatment Not on file documented as of this encounter Visit Diagnoses Diagnosis Mixed incontinence urge and stress (male)(female)- Primary documented in this encounter Additional Health Concerns Infection Onset Date Last Indicated Resolved Time VRE Comment:Urine 10/30/13 Resolved 11/04/2013 11/04/2013 8 10:33 AM MONTESSORI LEAD TEACHER R/O COVID-19 12/25/2019 12/25/2019 12/26/2019 2:46 PM CDT R/O COVID-19 05/09/2020 05/09/2020 05/09/2020 12:1 7 PM MONTESSORI LEAD TEACHER documented as of this encounter Care Teams Photo Mask Inspector Relationship Specialty Start Date End Date Dara Tavera FNP [address] [place] [phone] PCP - General NURSE PRACTITIONER 10/13/18 documented as of this encounter
--- OUTSIDE RECORDS SUMMARY | 2025-02-09 22:59 | XMS_ITS | Encounter Summary ---
Author Organization [facility] Address [address] [place] [address] Care Team Providers Care Tumbling Barrel Painter Name Role Phone Dara Tavera Primary Care Provider Encounter Details Date Type Department Care Team (Latest Contact Info) Description 08/19/2003 Outpatient Historical [facility] Urology- [address]tr[address], [address] [place] [address] Hossein Blair MD NO ADDRESS ON FILE FEMALE STRESS INCONTINENCE (Primary Dx); REMOVAL INT FIXATION DEVICE Social History Tobacco Use Types Packs/Day Years Used Date Smoking Tobacco: Never Assessed Comments Unknown Sex and Gender Information Value Date Recorded Sex Assigned at Not on file Legal Sex Female 5:22 AM APARTMENT LEASING SPECIALIST Gender Identity Not on file Sexual Orientation Not on file documented as of this encounter Plan of Treatment Not on file documented as of this encounter Visit Diagnoses Diagnosis Female stress incontinence- Primary Encounter for removal of internal fixation device documented in this encounter Additional Health Concerns Infection Onset Date Last Indicated Resolved Time VRE Comment:Urine 10/30/13 Resolved 11/04/2013 11/04/2013 8 10:33 AM APARTMENT LEASING SPECIALIST R/O COVID-19 12/25/2019 12/25/2019 12/26/2019 2:46 PM CDT R/O COVID-19 05/09/2020 05/09/2020 05/09/2020 12:1 7 PM APARTMENT LEASING SPECIALIST documented as of this encounter Care Teams Tumbling Barrel Painter Relationship Specialty Start Date End Date Dara Tavera FNP [address] [place] [phone] PCP - General NURSE PRACTITIONER 10/13/18 documented as of this encounter
--- OUTSIDE RECORDS SUMMARY | 2025-02-09 22:59 | XMS_ITS | Encounter Summary ---
Author Organization [facility] Address [address] [place] [address] Care Team Providers Care Second Ride Fare Collector Name Role Phone Dara Tavera HOSPITAL ADMITTING CLERK Primary Care Provider Encounter Details Date Type Department Care Team (Latest Contact Info) Description 07/29/2003 Outpatient Historical [facility] Behavioral Clinical Services [address] [place] [address] Hood Kerr Jr., MD [address] [place] [address] SCHIZOAFFECTIVE-UNSP EC (CMS/HCC) (Primary Dx) Social History Tobacco Use Types Packs/Day Years Used Date Smoking Tobacco: Never Assessed Comments Unknown Sex and Gender Information Value Date Recorded Sex Assigned at Not on file Legal Sex Female 5:22 AM TERMINAL PRESS OPERATOR Gender Identity Not on file Sexual Orientation Not on file documented as of this encounter Plan of Treatment Not on file documented as of this encounter Visit Diagnoses Diagnosis Schizoaffective disorder, unspecified condition (CMS/HCC)- Primary Schizoaffective disorder, unspecified condition documented in this encounter Additional Health Concerns Infection Onset Date Last Indicated Resolved Time VRE Comment:Urine 10/30/13 Resolved 11/04/2013 11/04/2013 8 10:33 AM TERMINAL PRESS OPERATOR R/O COVID-19 12/25/2019 12/25/2019 12/26/2019 2:46 PM CDT R/O COVID-19 05/09/2020 05/09/2020 05/09/2020 12:1 7 PM TERMINAL PRESS OPERATOR documented as of this encounter Care Teams Second Ride Fare Collector Relationship Specialty Start Date End Date Dara Tavera FNP [address] [place] [phone] PCP - General NURSE PRACTITIONER 10/13/18 documented as of this encounter
--- OUTSIDE RECORDS SUMMARY | 2025-02-09 22:59 | XMS_ITS | Encounter Summary ---
Author Organization [facility] Address [address] [place] [address] Care Team Providers Care Industrial Gas Servicer Helper Name Role Phone Dara Tavera Primary Care Provider Encounter Details Date Type Department Care Team (Late st Contact Info) Description 06/10/1997 Outpatient Historical [facility] Chio Lopez MD [address] [place] [phone] Lumbago (Primary Dx) Social History Tobacco Use Types Packs/Day Years Used Date Smoking Tobacco: Never Assessed Comments Unknown Sex and Gender Information Value Date Recorded Sex Assigned at Not on file Legal Sex Female 5:22 AM PSYCHIATRY PHYSICIAN Gender Identity Not on file Sexual Orientation Not on file documented as of this encounter Plan of Treatment Not on file documented as of this encounter Visit Diagnoses Diagnosis Lumbago- Primary documented in this encounter Additional Health Concerns Infection Onset Date Last Indicated Resolved Time VRE Comment:Urine 10/30/13 Resolved 11/04/2013 11/04/2013 8 10:33 AM PSYCHIATRY PHYSICIAN R/O COVID-19 12/25/2019 12/25/2019 12/26/2019 2:46 PM CDT R/O COVID-19 05/09/2020 05/09/2020 05/09/2020 12:1 7 PM PSYCHIATRY PHYSICIAN documented as of this encounter Care Teams Industrial Gas Servicer Helper Relationship Specialty Start Date End Date Dara Tavera FNP [address] [place] [address] PCP - General NURSE PRACTITIONER 10/13/18 documented as of this encounter
--- OUTSIDE RECORDS SUMMARY | 2025-02-09 22:59 | XMS_ITS | Encounter Summary ---
Author Organization [facility] Address [address] [place] [address] Care Team Providers Care Equity Manager Name Role Phone Dara Tavera Primary Care Provider Encounter Details Date Type Department Care Team (Latest Contact Info) Description 06/04/1997 Outpatient Historical [facility] Roney Arora MD [address] [facility] [address] [place] [address] Unspecified osteomyelitis, other specified site (Primary Dx); Need vaccination-viral disease Social History Tobacco Use Types Packs/Day Years Used Date Smoking Tobacco: Never Assessed Comments Unknown Sex and Gender Information Value Date Recorded Sex Assigned at Not on file Legal Sex Female 5:22 AM TRAVEL CLERK Gender Identity Not on file Sexual Orientation Not on file documented as of this encounter Plan of Treatment Not on file documented as of this encounter Visit Diagnoses Diagnosis Unspecified osteomyelitis, other specified site- Primary Need vaccination-viral disease Need for prophylactic vaccination and inoculation against other viral diseases documented in this encounter Additional Health Concerns Infection Onset Date Last Indicated Resolved Time VRE Comment:Urine 10/30/13 Resolved 11/04/2013 11/04/2013 8 10:33 AM TRAVEL CLERK R/O COVID-19 12/25/2019 12/25/2019 12/26/2019 2:46 PM CDT R/O COVID-19 05/09/2020 05/09/2020 05/09/2020 12:1 7 PM TRAVEL CLERK documented as of this encounter Care Teams Equity Manager Relationship Specialty Start Date End Date Dara Tavera FNP [address] [place] [phone] PCP - General NURSE PRACTITIONER 10/13/18 documented as of this encounter
--- OUTSIDE RECORDS SUMMARY | 2025-02-09 22:59 | XMS_ITS | Encounter Summary ---
Author Organization [facility] Address [address] [place] [address] Care Team Providers Care Net Sql Developer Name Role Phone Dara Tavera Primary Care Provider [phone] Encounter Details Date Type Department Care Team (Latest Contact Info) Description 09/23/2003 Outpatient Historical [facility] Imaging Services [address] [place] [address] Hossein Blair MD NO ADDRESS ON FILE ENURESIS NOS (Primary Dx) Social History Tobacco Use Types Packs/Day Years Used Date Smoking Tobacco: Never Assessed Comments Unknown Sex and Gender Information Value Date Recorded Sex Assigned at Not on file Legal Sex Female 5:22 AM PRODUCT TESTER FIBERGLASS Gender Identity Not on file Sexual Orientation Not on file documented as of this encounter Plan of Treatment Not on file documented as of this encounter Visit Diagnoses Diagnosis Unspecified urinary incontinence- Primary documented in this encounter Additional Health Concerns Infection Onset Date Last Indicated Resolved Time VRE Comment:Urine 10/30/13 Resolved 11/04/2013 11/04/2013 8 10:33 AM PRODUCT TESTER FIBERGLASS R/O COVID-19 12/25/2019 12/25/2019 12/26/2019 2:46 PM CDT R/O COVID-19 05/09/2020 05/09/2020 05/09/2020 12:1 7 PM PRODUCT TESTER FIBERGLASS documented as of this encounter Care Teams Net Sql Developer Relationship Specialty Start Date End Date Dara Tavera FNP [address] [place] [address] PCP - General NURSE PRACTITIONER 10/13/18 documented as of this encounter
--- OUTSIDE RECORDS SUMMARY | 2025-02-09 22:59 | XMS_ITS | Encounter Summary ---
Author Organization [facility] Address [address] [place] [address] Care Team Providers Care Calculation Clerk Name Role Phone Dara Tavera Primary Care Provider Encounter Details Date Type Department Care Team (Latest Contact Info) Description 03/07/2019 Ancillary Orders [facility] Centralized Scheduling [address] [place] [address] Dara Tavera FNP [address] [place] [address] Screening breast examination Social History Tobacco Use Types Packs/Day Years Used Date Smoking Tobacco: Every Day Cigarettes Smokeless Tobacco: Never Comments:2 cigarettes daily Alcohol Use Standard Drinks/Week Comments No 0 (1 standard drink = 0.6 oz pur e alcohol) Comments No Sex and Gender Information Value Date Recorded Sex Assigned at Not on file Legal Sex Female 5:22 AM BULK COOLER INSTALLER Gender Identity Not on file Sexual Orientation Not on file Occupation Industry Job Start Date Job End Date Not on file Not on file Not on file Not on file Not on file Not on file Not on file Not on file documented as of this encounter Plan of Treatment Not on file documented as of this encounter Visit Diagnoses Diagnosis Screening breast examination Other screening breast examination documented in this encounter Additional Health Concerns Infection Onset Date Last Indicated Resolved Time R/O COVID-19 12/25/2019 12/25/2019 12/26/2019 2:46 PM CDT R/O COVID-19 05/09/2020 05/09/2020 05/09/2020 12:1 7 PM BULK COOLER INSTALLER documented as of this encounter Care Teams Calculation Clerk Relationship Specialty Start Date End Date Dara Tavera FNP [address] [place] [phone] PCP - General NURSE PRACTITIONER 10/13/18 documented as of this encounter
--- OUTSIDE RECORDS SUMMARY | 2025-02-09 22:59 | XMS_ITS | Encounter Summary ---
Author Organization [facility] Address [address] [place]: [place] [address] Care Team Providers Care Logistics Administrator Name Role Phone Dara Tavera Primary Care Provider [phone] Encounter Details Date Type Department Care Team ([facility] Contact Info) Description 10/29/2001 Outpatient Historical Non-Staff, Physician NO ADDRESS ON FILE Social History Tobacco Use Types Packs/Day Years Used Date Smoking Tobacco: Never Assessed Comments Unknown Sex and Gender Information Value Date Recorded Sex Assigned at Not on file Legal Sex Female 5:22 AM MARINE DIVER Gender Identity Not on file Sexual Orientation Not on file documented as of this encounter Plan of Treatment Not on file documented as of this encounter Visit Diagnoses Not on filedocumented in this encounter Additional Health Concerns Infection Onset Date Last Indicated Resolved Time VRE Comment:Urine 10/30/13 Resolved 11/04/2013 11/04/2013 8 10:33 AM MARINE DIVER R/O COVID-19 12/25/2019 12/25/2019 12/26/2019 2:46 PM CDT R/O COVID-19 05/09/2020 05/09/2020 05/09/2020 12:1 7 PM MARINE DIVER documented as of this encounter Care Teams Logistics Administrator Relationship Specialty Start Date End Date Dara Tavera FNP [address] [place] [phone] PCP - General NURSE PRACTITIONER 10/13/18 documented as of this encounter
--- OUTSIDE RECORDS SUMMARY | 2025-02-09 22:59 | XMS_ITS | Encounter Summary ---
Author Organization [facility] Address [address] [place] [address] Care Team Providers Care Switch Coupler Name Role Phone Dara Tavera Primary Care Provider Encounter Details Date Type Department Care Team (Latest Contact Info) Description 08/14/2003 Outpatient Historical [facility] Urology- [address]tr[address], 3[address] [place] [address] Hossein Blair MD NO ADDRESS ON FILE FEMALE STRESS INCONTINENCE (Primary Dx) Social History Tobacco Use Types Packs/Day Years Used Date Smoking Tobacco: Never Assessed Comments Unknown Sex and Gender Information Value Date Recorded Sex Assigned at Not on file Legal Sex Female 5:22 AM ASSOCIATE PROFESSOR OF PATHOLOGY Gender Identity Not on file Sexual Orientation Not on file documented as of this encounter Plan of Treatment Not on file documented as of this encounter Visit Diagnoses Diagnosis Female stress incontinence- Primary documented in this encounter Additional Health Concerns Infection Onset Date Last Indicated Resolved Time VRE Comment:Urine 10/30/13 Resolved 11/04/2013 11/04/2013 8 10:33 AM ASSOCIATE PROFESSOR OF PATHOLOGY R/O COVID-19 12/25/2019 12/25/2019 12/26/2019 2:46 PM CDT R/O COVID-19 05/09/2020 05/09/2020 05/09/2020 12:1 7 PM ASSOCIATE PROFESSOR OF PATHOLOGY documented as of this encounter Care Teams Switch Coupler Relationship Specialty Start Date End Date Dara Tavera FNP [address] [place] [phone] PCP - General NURSE PRACTITIONER 10/13/18 documented as of this encounter
--- OUTSIDE RECORDS SUMMARY | 2025-02-09 22:59 | XMS_ITS | Encounter Summary ---
Author Organization [facility] Address [address] [place] [address] Care Team Providers Care Manager Social Responsibility Name Role Phone Dara Tavera Primary Care Provider Encounter Details Date Type Department Care Team (Late st Contact Info) Description 12/05/[address] [facility] Behavioral Clinical Services [address] [place] [address] Hood Kerr Jr., MD [address] [place] [address] Social History Tobacco Use Types Packs/Day Years Used Date Smoking Tobacco: Never Assessed Comments Unknown Sex and Gender Information Value Date Recorded Sex Assigned at Not on file Legal Sex Female 5:22 AM OFF PREMISE SERVICE REPRESENTATIVE Gender Identity Not on file Sexual Orientation Not on file documented as of this encounter Plan of Treatment Not on file documented as of this encounter Visit Diagnoses Not on filedocumented in this encounter Additional Health Concerns Infection Onset Date Last Indicated Resolved Time VRE Comment:Urine 10/30/13 Resolved 11/04/2013 11/04/2013 8 10:33 AM OFF PREMISE SERVICE REPRESENTATIVE R/O COVID-19 12/25/2019 12/25/2019 12/26/2019 2:46 PM CDT R/O COVID-19 05/09/2020 05/09/2020 05/09/2020 12:1 7 PM OFF PREMISE SERVICE REPRESENTATIVE documented as of this encounter Care Teams Manager Social Responsibility Relationship Specialty Start Date End Date Dara Tavera FNP [address] [place] [phone] PCP - General NURSE PRACTITIONER 10/13/18 documented as of this encounter
--- OUTSIDE RECORDS SUMMARY | 2025-02-09 22:59 | XMS_ITS | Encounter Summary ---
Author Organization [facility] Address [address] [place] [address] Care Team Providers Care Control Systems Engineer Name Role Phone Dara Tavera MEDICAL ASSISTING INSTRUCTOR Primary Care Provider Encounter Details Date Type Department Care Team (Latest Contact Info) Description 09/03/2003 Outpatient Historical [facility] Behavioral Clinical Services [address] [place] [address] Hood Kerr Jr., MD [address] [place] [address] SCHIZOAFFECTIVE-UNSP EC (CMS/HCC) (Primary Dx) Social History Tobacco Use Types Packs/Day Years Used Date Smoking Tobacco: Never Assessed Comments Unknown Sex and Gender Information Value Date Recorded Sex Assigned at Not on file Legal Sex Female 5:22 AM VP TREASURER Gender Identity Not on file Sexual Orientation Not on file documented as of this encounter Plan of Treatment Not on file documented as of this encounter Visit Diagnoses Diagnosis Schizoaffective disorder, unspecified condition (CMS/HCC)- Primary Schizoaffective disorder, unspecified condition documented in this encounter Additional Health Concerns Infection Onset Date Last Indicated Resolved Time VRE Comment:Urine 10/30/13 Resolved 11/04/2013 11/04/2013 8 10:33 AM VP TREASURER R/O COVID-19 12/25/2019 12/25/2019 12/26/2019 2:46 PM CDT R/O COVID-19 05/09/2020 05/09/2020 05/09/2020 12:1 7 PM VP TREASURER documented as of this encounter Care Teams Control Systems Engineer Relationship Specialty Start Date End Date Dara Tavera FNP [address] [place] [phone] PCP - General NURSE PRACTITIONER 10/13/18 documented as of this encounter
--- OUTSIDE RECORDS SUMMARY | 2025-02-09 22:59 | XMS_ITS | Encounter Summary ---
Author Organization [facility] Address [address] [place] [address] Care Team Providers Care Airline Stewardess Name Role Phone Ayse Dara BERNSTEIN Primary Care Provider Encounter Details Date Type Department Care Team (Latest Contact Info) Description 11/18/2002 Outpatient [facility] [place] [phone] Dmitri Vega MD [address] [place] [address] SURGERY FOLLOWUP, UNSPEC (Primary Dx) Social History Tobacco Use Types Packs/Day Years Used Date Smoking Tobacco: Never Assessed Comments Unknown Sex and Gender Information Value Date Recorded Sex Assigned at Not on file Legal Sex Female 5:22 AM ART GLASS DESIGNER Gender Identity Not on file Sexual Orientation Not on file documented as of this encounter Plan of Treatment Not on file documented as of this encounter Visit Diagnoses Diagnosis Follow-up examination, following unspecified surgery- Primary documented in this encounter Additional Health Concerns Infection Onset Date Last Indicated Resolved Time VRE Comment:Urine 10/30/13 Resolved 11/04/2013 11/04/2013 8 10:33 AM ART GLASS DESIGNER R/O COVID-19 12/25/2019 12/25/2019 12/26/2019 2:46 PM CDT R/O COVID-19 05/09/2020 05/09/2020 05/09/2020 12:1 7 PM ART GLASS DESIGNER documented as of this encounter Care Teams Airline Stewardess Relationship Specialty Start Date End Date Dara Tavera FNP [address] [place] [phone] PCP - General NURSE PRACTITIONER 10/13/18 documented as of this encounter
--- OUTSIDE RECORDS SUMMARY | 2025-02-09 22:59 | XMS_ITS | Encounter Summary ---
Author Organization [facility] Address [address] [place] [address] Care Team Providers Care Capsule Filling Machine Operator Name Role Phone Dara Tavera ENGINE ROOM HELPER Primary Care Provider Encounter Details Date Type Department Care Team (Latest Contact Info) Description 12/04/2003 Outpatient Historical [facility] Behavioral Clinical Services [address] [place] [address] Hood Kerr Jr., MD [address] [place] [address] SCHIZOAFFECTIVE-UNSP EC (CMS/HCC) (Primary Dx) Social History Tobacco Use Types Packs/Day Years Used Date Smoking Tobacco: Never Assessed Comments Unknown Sex and Gender Information Value Date Recorded Sex Assigned at Not on file Legal Sex Female 5:22 AM FARM EQUIPMENT TECHNICIAN Gender Identity Not on file Sexual Orientation Not on file documented as of this encounter Plan of Treatment Not on file documented as of this encounter Visit Diagnoses Diagnosis Schizoaffective disorder, unspecified condition (CMS/HCC)- Primary Schizoaffective disorder, unspecified condition documented in this encounter Additional Health Concerns Infection Onset Date Last Indicated Resolved Time VRE Comment:Urine 10/30/13 Resolved 11/04/2013 11/04/2013 8 10:33 AM FARM EQUIPMENT TECHNICIAN R/O COVID-19 12/25/2019 12/25/2019 12/26/2019 2:46 PM CDT R/O COVID-19 05/09/2020 05/09/2020 05/09/2020 12:1 7 PM FARM EQUIPMENT TECHNICIAN documented as of this encounter Care Teams Capsule Filling Machine Operator Relationship Specialty Start Date End Date Dara Tavera FNP [address] [place] [phone] PCP - General NURSE PRACTITIONER 10/13/18 documented as of this encounter
--- OUTSIDE RECORDS SUMMARY | 2025-02-09 22:59 | XMS_ITS | Encounter Summary ---
Author Organization [facility] Address [address] [place] [address] Care Team Providers Care Director Of Psychology Name Role Phone Dara Tavera INSPECTOR COLD WORKING Primary Care Provider Encounter Details Date Type Department Care Team (Latest Contact Info) Description 11/03/2003 Outpatient Historical [facility] Behavioral Clinical Services [address] [place] [address] Hood Kerr Jr., MD [address] [place] [address] SCHIZOAFFECTIVE-UNSP EC (CMS/HCC) (Primary Dx) Social History Tobacco Use Types Packs/Day Years Used Date Smoking Tobacco: Never Assessed Comments Unknown Sex and Gender Information Value Date Recorded Sex Assigned at Not on file Legal Sex Female 5:22 AM EXPLOSIVES DETONATOR Gender Identity Not on file Sexual Orientation Not on file documented as of this encounter Plan of Treatment Not on file documented as of this encounter Visit Diagnoses Diagnosis Schizoaffective disorder, unspecified condition (CMS/HCC)- Primary Schizoaffective disorder, unspecified condition documented in this encounter Additional Health Concerns Infection Onset Date Last Indicated Resolved Time VRE Comment:Urine 10/30/13 Resolved 11/04/2013 11/04/2013 8 10:33 AM EXPLOSIVES DETONATOR R/O COVID-19 12/25/2019 12/25/2019 12/26/2019 2:46 PM CDT R/O COVID-19 05/09/2020 05/09/2020 05/09/2020 12:1 7 PM EXPLOSIVES DETONATOR documented as of this encounter Care Teams Director Of Psychology Relationship Specialty Start Date End Date Dara Tavera FNP [address] [place] [phone] PCP - General NURSE PRACTITIONER 10/13/18 documented as of this encounter
--- OUTSIDE RECORDS SUMMARY | 2025-02-09 22:59 | XMS_ITS | Encounter Summary ---
Author Organization [facility] Address [address] [place] [address] Care Team Providers Care Tearoom Hostess Name Role Phone Dara Tavera Primary Care Provider Encounter Details Date Type Department Care Team (Latest Contact Info) Description 07/17/2003 Outpatient Historical [facility] Urology- [address]tr[address], 3[address] [place] [address] Hossein Blair MD NO ADDRESS ON FILE URGE & STRESS MIXED INCONTINENCE (Primary Dx); FB bladder/urethra Social History Tobacco Use Types Packs/Day Years Used Date Smoking Tobacco: Never Assessed Comments Unknown Sex and Gender Information Value Date Recorded Sex Assigned at Not on file Legal Sex Female 5:22 AM WESTERN PHILOSOPHY PROFESSOR Gender Identity Not on file Sexual Orientation Not on file documented as of this encounter Plan of Treatment Not on file documented as of this encounter Visit Diagnoses Diagnosis Mixed incontinence urge and stress (male)(female)- Primary FB bladder/urethra Foreign body in bladder and urethra documented in this encounter Additional Health Concerns Infection Onset Date Last Indicated Resolved Time VRE Comment:Urine 10/30/13 Resolved 11/04/2013 11/04/2013 8 10:33 AM WESTERN PHILOSOPHY PROFESSOR R/O COVID-19 12/25/2019 12/25/2019 12/26/2019 2:46 PM CDT R/O COVID-19 05/09/2020 05/09/2020 05/09/2020 12:1 7 PM WESTERN PHILOSOPHY PROFESSOR documented as of this encounter Care Teams Tearoom Hostess Relationship Specialty Start Date End Date Dara Tavera FNP [address] [place] [phone] PCP - General NURSE PRACTITIONER 10/13/18 documented as of this encounter
--- OUTSIDE RECORDS SUMMARY | 2025-02-09 22:59 | XMS_ITS | Encounter Summary ---
Author Organization [facility] Address [address] [place] [address] Care Team Providers Care President/Gm Production & Live Experiences Name Role Phone Dara Tavera CARDIOPULMONARY PHYSICAL THERAPIST Primary Care Provider Encounter Details Date Type Department Care Team (Latest Contact Info) Description 10/04/2003 Outpatient Historical [facility] Behavioral Clinical Services [address] [place] [address] Hood Kerr Jr., MD [address] [place] [address] SCHIZOAFFECTIVE-UNSP EC (CMS/HCC) (Primary Dx) Social History Tobacco Use Types Packs/Day Years Used Date Smoking Tobacco: Never Assessed Comments Unknown Sex and Gender Information Value Date Recorded Sex Assigned at Not on file Legal Sex Female 5:22 AM GAUGE AND WEIGH MACHINE ADJUSTER Gender Identity Not on file Sexual Orientation Not on file documented as of this encounter Plan of Treatment Not on file documented as of this encounter Visit Diagnoses Diagnosis Schizoaffective disorder, unspecified condition (CMS/HCC)- Primary Schizoaffective disorder, unspecified condition documented in this encounter Additional Health Concerns Infection Onset Date Last Indicated Resolved Time VRE Comment:Urine 10/30/13 Resolved 11/04/2013 11/04/2013 8 10:33 AM GAUGE AND WEIGH MACHINE ADJUSTER R/O COVID-19 12/25/2019 12/25/2019 12/26/2019 2:46 PM CDT R/O COVID-19 05/09/2020 05/09/2020 05/09/2020 12:1 7 PM GAUGE AND WEIGH MACHINE ADJUSTER documented as of this encounter Care Teams President/Gm Production & Live Experiences Relationship Specialty Start Date End Date Dara aTvera FNP [address] [place] [phone] PCP - General NURSE PRACTITIONER 10/13/18 documented as of this encounter
--- OUTSIDE RECORDS SUMMARY | 2025-02-09 22:59 | XMS_ITS | Encounter Summary ---
Author Organization [facility] Address [address] [place] [address] Care Team Providers Care Finance Associate Name Role Phone Dara Tavera Primary Care Provider [phone] Encounter Details Date Type Department Care Team (Late st Contact Info) Description 07/16/2003 Outpatient [facility] [address] [place] [address] Hossein Blair MD NO ADDRESS ON FILE BLADDER DISORDER NEC (Primary Dx) Social History Tobacco Use Types Packs/Day Years Used Date Smoking Tobacco: Never Assessed Comments Unknown Sex and Gender Information Value Date Recorded Sex Assigned at Not on file Legal Sex Female 5:22 AM WELT ROUGHER Gender Identity Not on file Sexual Orientation Not on file documented as of this encounter Plan of Treatment Not on file documented as of this encounter Visit Diagnoses Diagnosis Other specified disorder of bladder- Primary documented in this encounter Additional Health Concerns Infection Onset Date Last Indicated Resolved Time VRE Comment:Urine 10/30/13 Resolved 11/04/2013 11/04/2013 8 10:33 AM WELT ROUGHER R/O COVID-19 12/25/2019 12/25/2019 12/26/2019 2:46 PM CDT R/O COVID-19 05/09/2020 05/09/2020 05/09/2020 12:1 7 PM WELT ROUGHER documented as of this encounter Care Teams Finance Associate Relationship Specialty Start Date End Date Dara Tavera FNP [address] [place] [address] PCP - General NURSE PRACTITIONER 10/13/18 documented as of this encounter
--- OUTSIDE RECORDS SUMMARY | 2025-02-09 22:59 | XMS_ITS | Encounter Summary ---
Author Organization [facility] Address [address] [place] [address] Care Team Providers Care Finance Lead Name Role Phone Dara Tavera Primary Care Provider Encounter Details Date Type Department Care Team (Late st Contact Info) Description 11/04/2003 Outpatient Historical [facility] Clinical Services [address] [place] [address] Hood Kerr Jr., MD [address] [place] [address] Social History Tobacco Use Types Packs/Day Years Used Date Smoking Tobacco: Never Assessed Comments Unknown Sex and Gender Information Value Date Recorded Sex Assigned at Not on file Legal Sex Female 5:22 AM ELECTRONIC PREPRESS SYSTEM OPERATOR Gender Identity Not on file Sexual Orientation Not on file documented as of this encounter Plan of Treatment Not on file documented as of this encounter Visit Diagnoses Not on filedocumented in this encounter Additional Health Concerns Infection Onset Date Last Indicated Resolved Time VRE Comment:Urine 10/30/13 Resolved 11/04/2013 11/04/2013 8 10:33 AM ELECTRONIC PREPRESS SYSTEM OPERATOR R/O COVID-19 12/25/2019 12/25/2019 12/26/2019 2:46 PM CDT R/O COVID-19 05/09/2020 05/09/2020 05/09/2020 12:1 7 PM ELECTRONIC PREPRESS SYSTEM OPERATOR documented as of this encounter Care Teams Finance Lead Relationship Specialty Start Date End Date Dara Tavera FNP [address] [place] [phone] PCP - General NURSE PRACTITIONER 10/13/18 documented as of this encounter
--- OUTSIDE RECORDS SUMMARY | 2025-02-09 22:59 | XMS_ITS | Encounter Summary ---
Author Organization [facility] Address [address] [place] [address] Care Team Providers Care Custom Furrier Name Role Phone Dara Tavera Primary Care Provider Encounter Details Date Type Department Care Team (Latest Contact Info) Description 06/28/2003 Outpatient Historical [facility] Clinical Services [address] [place] [address] Oniel Upton MD NO ADDRESS ON FILE SCHIZOAFFECTIVE-UNSP EC ([facility]/HCC) (Primary Dx) Social History Tobacco Use Types Packs/Day Years Used Date Smoking Tobacco: Never Assessed Comments Unknown Sex and Gender Information Value Date Recorded Sex Assigned at Not on file Legal Sex Female 5:22 AM BALLOON ARTIST Gender Identity Not on file Sexual Orientation Not on file documented as of this encounter Plan of Treatment Not on file documented as of this encounter Visit Diagnoses Diagnosis Schizoaffective disorder, unspecified condition ([facility]/HCC)- Primary Schizoaffective disorder, unspecified condition documented in this encounter Additional Health Concerns Infection Onset Date Last Indicated Resolved Time VRE Comment:Urine 10/30/13 Resolved 11/04/2013 11/04/2013 8 10:33 AM BALLOON ARTIST R/O COVID-19 12/25/2019 12/25/2019 12/26/2019 2:46 PM CDT R/O COVID-19 05/09/2020 05/09/2020 05/09/2020 12:1 7 PM BALLOON ARTIST documented as of this encounter Care Teams Custom Furrier Relationship Specialty Start Date End Date Dara Tavera FNP [address] [place] [address] PCP - General NURSE PRACTITIONER 10/13/18 documented as of this encounter
--- OUTSIDE RECORDS SUMMARY | 2025-02-09 22:59 | XMS_ITS | Encounter Summary ---
Author Organization [facility] Address [address] [place] [address] Care Team Providers Care Research And Development Researcher Name Role Phone Dara Tavera Primary Care Provider Encounter Details Date Type Department Care Team (Latest Contact Info) Description 11/08/[address] [facility] 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
--- OUTSIDE RECORDS SUMMARY | 2025-02-09 23:00 | XMS_ITS | Encounter Summary ---
Author Organization [facility] Address [address] [place] [address] Care Team Providers Care Payroll Administrative Assistant Name Role Phone Dara Tavera BOSS DYER Primary Care Provider Encounter Details Date Type Department Care Team (Late st Contact Info) Description 05/11/2008 Inpatient Historical [facility] Murphy Espitia MD NO ADDRESS ON FILE Nam Calvo MD NO ADDRESS ON FILE Poisoning by Unspecified Drug or Medicinal Substance Social History Tobacco Use Types Packs/Day Years Used Date Smoking Tobacco: Never Assessed Comments Unknown Sex and Gender Information Value Date Recorded Sex Assigned at Not on file Legal Sex Female 5:22 AM FIBERGLASS BOAT MAKER Gender Identity Not on file Sexual Orientation Not on file documented as of this encounter Progress Notes * Nam Calvo MD - 06/04/2008 9:18 AM CST NAME LATESHA WILHELM PATIENT # [id number] 1965 AGE 42Y PHYSICIAN NAM CALVO MD/[id number] ADMITTED 05/11/2008 DISMISSED 05/12/2008 REVISED DOCUMENT: 07/11/2008 [facility] DISCHARGE DIAGNOSES: 1. Drug overdose. SECONDARY DIAGNOSIS: 1. Bipolar disorder. 2. Manic depression. 3. Gastroesophageal reflux disease. 4. Seasonal allergies. The patient is a 42-year-old female who presented to the emergency room with altered level of consciousness. Apparently, in the emergency room she was lethargic with slurred speech and incoherent. According to the patient's , he went to bed early last night and his stayed up to watch TV later. She came into the bedroom and screamed out to call an ambulance and passed out. The patient was difficult to arouse according to the and EMS was activated. She was brought in to [facility] where she had head CT. Fortunately, this was unremarkable. She also had a negative chest x-ray. She had positive urine drug screen for Propoxyphene which has been recently ordered for the patient. The patient was admitted to intensive care unit for evaluation of suspected drug overdose. The patient continued to be lethargic. The patient gradually became more alert and responsive andback to her baseline. When I saw her on the morning of 05/11/2008 she was still lethargic but gradually her condition had improved. When I saw her in the afternoon, she was starting complaints of chest pain that she rated 10/10. This was treated with nitrates and STAT EKG was ordered and chest x-ray was also ordered. All her studies were unremarkable. Her electrocardiogram was unremarkable. Her chest pain did not resolved with nitrates and did require morphine. The patient denied having similarpain in the past and at that point, her case now became more focused on evaluation of her chest pain. She had serial cardiac markers that were negative. She had repeat EKG that was unchanged. We subsequently ordered a stress test after we contacted her local hospital and found out that she had not had any recent admissions for chest pain. The patient did undergo Dobutamine stress echocardiogram which showed no obvious echocardiogram evidence of myocardial ischemia with Dobutamine infusion to peak dose. Peak heart rate was 160 beats or 89% of maximum projected heart rate. An adequate rate pressure product of at least 23,000 was obtained. The baseline echocardiogram data are, otherwise, unremarkable. Part of her evaluation for chest pain obviously pulmonary embolus was on a differential. However, this was felt to be less likely in light of the absence of fever, tachycardia or hypoxia. In conclusion, it was felt that the patient has negative echocardiogram per EKG criteria per echocardiogram criteria. The patient, at that point, was advised that her chest pain was noncardiac and most likely musculoskeletal in nature. The patient, during her hospital stay, was evaluated by psychiatric service and was felt to be nonsuicidal or homicidal. She was felt stable for discharge and follow up as an outpatient. The patient was then discharged to home in good stable condition. She was instructed to follow up with her primary care physician the following week. DISCHARGE MEDICATIONS: 1. Compazine 5 mg twice a day. 2. Premarin 0.625 mg by mouth daily. 3. Singulair 10 mg by mouth daily. 4. Clonazepam 1 mg by mouth three times a day. 5. Motrin 200 mg by mouth every 6 hours. 6. Protonix 40 mg by mouth daily. 7. Wellbutrin 150 mg by mouth twice a day. 8. Seroquel 200 mg by mouth twice a day. 9. Tequin 500 mg by mouth daily until finished. 10. Pyridium 200 mg by mouth every 6 hours. 11. Econazole nitrate cream applied topically. NAM CALVO MD/[id number]/ [id number] REV/BL [id number] - 07/11/2008 - [facility] RGLASS BOAT MAKER documented in this encounter Plan of Treatment Not on file documented as of this encounter Procedures Procedure Name Priority Date/Time Associated Diagnosis Comments CARDIAC ENZYMES Routine 05/12/2008 4:45 AM FIBERGLASS BOAT MAKER CBC WITH DIFFERENTIAL Routine 05/12/2008 4:45 AM FIBERGLASS BOAT MAKER TSH Routine 05/12/2008 4:45 AM FIBERGLASS BOAT MAKER COMPREHENSIVE METABOLIC PANEL Routine 05/12/2008 4:45 AM FIBERGLASS BOAT MAKER CARDIAC ENZYMES Routine 05/11/2008 10:13 PM FIBERGLASS BOAT MAKER D-DIMER Routine 05/11/2008 10:13 PM FIBERGLASS BOAT MAKER CARDIAC ENZYMES Routine 05/11/2008 3:50 PM FIBERGLASS BOAT MAKER XR CHEST PA OR AP 1 VW Routine 8 1:07 PM FIBERGLASS BOAT MAKER MRSA CULTURE Routine 05/11/2008 10:37 AM FIBERGLASS BOAT MAKER URINALYSIS W/REFLEX MICROSCOPIC Routine 05/11/2008 5:41 AM FIBERGLASS BOAT MAKER documented in this encounter Results * (ABNORMAL) CBC WITH DIFFERENTIAL (05/12/2008 4:45 AM FIBERGLASS BOAT MAKER) HEMATOCRIT 36.0 36.0 - 46.0 % [facility] EOSINOPHILS 5.1 0.0 - 7.0 % [facility] PLATELETS 207 140 - 440 K/ul [facility] EOSINOPHIL ABSOLUTE 0.4 0.0 - 0.7 K/ul [facility] RBC 3.92(L) 4.20 - 5.40 Mil/ul [facility] LYMPHOCYTES 35.9 24.0 - 44.0 % [facility] MCHC 33.3 30.0 - 35.0 g/dL [facility] LYMPHOCYTE ABSOLUTE 2.6 1.2 - 4.0 K/ul [facility] MCV 91.8 84.0 - 103.[address] [facility] MPV 10.4 8.9 - 12.[address] [facility] BASOPHILS ABSOLUTE 0.1 0.0 - 0.2 K/ul [facility] BASOPHILS 1.1(H) 0.0 - 1.0 % [facility] HEMOGLOBIN 12.0 12.0 - 16.0 g/dL [facility] RDW 14.4 11.0 - 14.5 % [facility] MONOCYTE ABSOLUTE 0.5 0.1 - 0.6 K/ul [facility] MONOCYTES 7.4 2.0 - 10.0 % [facility] WBC 7.2 4.5 - 11.0 K/ul [facility] MCH 30.6 27.0 - 34.[address] [facility] NEUTROPHIL ABSOLUTE 3.6 2.0 - 8.0 K/ul [facility] NEUTROPHILS 50.5 42.2 - 75.2 % [facility] Blood specimen (specimen) 05/12/2008 4:45 AM FIBERGLASS BOAT MAKER 05/12/2008 4:45 AM FIBERGLASS BOAT MAKER Murphy Espitia MD HEMATOLOGY ORDERABLES Final Res ult Performing Organization Address [facility] [address] [facility] de Phone Number INTERFACE SYSTEM Refer to clinic/hospital department [facility] CLIA# [id number] [address] [place] [address] * TSH (05/12/2008 4:45 AM FIBERGLASS BOAT MAKER) TSH 2.120 0.350 - 5.500 uIU/ml [facility] Blood specimen (specimen) 05/12/2008 4:45 AM FIBERGLASS BOAT MAKER 05/12/2008 4:45 AM FIBERGLASS BOAT MAKER Murphy Espitia MD CHEMISTRY ORDERABLES Final Resu lt Performing Organization Address [facility] de Phone Number INTERFACE SYSTEM Refer to clinic/hospital department [facility] CLIA# [id number] [address] [place] [address] * (ABNORMAL) COMPREHENSIVE METABOLIC PANEL (05/12/2008 4:45 AM FIBERGLASS BOAT MAKER) CALCIUM 8.5 8.4 - 10.5 mg/dL [facility] CREATININE 0.8 0.7 - 1.2 mg/dL [facility] ALT 18 4 - 36 IU/L [facility] GLUCOSE 115(H) 70 - 110 mg/dL [facility] CHLORIDE 109 95 - 110 mEq/L [facility] OSMOLALITY, CALCULATED 282 275 - 295 mOsm/Kg [facility] ALKALINE PHOSPHATASE 110(H) 25 - 100 U/L [facility] GLOBULIN (CALC) 2.7 2.4 - 3.9 g/dL [facility] SODIUM 137 136 - 145 mEq/L [facility] BILIRUBIN TOTAL 0.1(L) 0.3 - 1.2 mg/dL [facility] TOTAL PROTEIN 6.2(L) 6.3 - 8.2 g/dL [facility] BUN 9 7 - 17 mg/dL [facility] AST 22 8 - 33 U/L [facility] CO2 24 22 - 32 mmol/l [facility] ALBUMIN/GLOBULIN RATIO 1.3 1.0 - 2.3 [facility] ALBUMIN 3.5 3.5 - 5.0 g/dL [facility] POTASSIUM 4.2 3.5 - 5.0 mEq/L [facility] ANION GAP 8(L) 9 - 20 mEq/L [facility] Blood specimen (specimen) 05/12/2008 4:45 AM FIBERGLASS BOAT MAKER 05/12/2008 4:45 AM FIBERGLASS BOAT MAKER Murphy Espitia MD CHEMISTRY ORDERABLES Final Resu lt Performing Organization Address City/[facility] [address]/[facility] de Phone Number INTERFACE SYSTEM Refer to clinic/hospital department [facility] CLIA# [id number] [address] [place] [address] * CARDIAC ENZYMES (05/12/2008 4:45 AM FIBERGLASS BOAT MAKER) TROPONIN I <0.1 0.0 - 1.3 ng/mL [facility] CKMB 0.3 0.0 - 5.0 ng/mL [facility] Blood specimen (specimen) 05/12/2008 4:45 AM FIBERGLASS BOAT MAKER 05/12/2008 4:45 AM FIBERGLASS BOAT MAKER us Murphy Espitia MD CHEMISTRY ORDERABLES Final Resu lt Performing Organization Address [facility] [address]/[facility] de Phone Number INTERFACE SYSTEM Refer to clinic/hospital department [facility] CLIA# [id number] [address] [place] [address] * CARDIAC ENZYMES (05/11/2008 10:13 PM FIBERGLASS BOAT MAKER) TROPONIN I <0.1 0.0 - 1.3 ng/mL [facility] CKMB 0.2 0.0 - 5.0 ng/mL [facility] Blood specimen (specimen) 05/11/2008 10:13 PM FIBERGLASS BOAT MAKER 05/11/2008 10:13 PM FIBERGLASS BOAT MAKER Murphy Espitia MD CHEMISTRY ORDERABLES Final Resu lt Performing Organization Address [facility] Phone Number INTERFACE SYSTEM Refer to clinic/hospital department [facility] CLIA# [id number] [address] [place] [address] * D-DIMER (05/11/2008 10:13 PM FIBERGLASS BOAT MAKER) Pathologist [facility] D-DIMER QUANT 0.4 0.0 - 0.5 mcg/mL [facility] Comment: Testing performed using the STA Liatest D-Di kit. This test can be used as an aid to the diagnosis of deep venous thrombosis and pulmonary embolism. In clinical studies it has been reported that, with a cutoff value of 0.5 mcg/mL FEU, the negative predictive value for the exclusion of thrombosis was within the 95-100% range. Blood specimen (specimen) 05/11/2008 10:13 PM FIBERGLASS BOAT MAKER 05/11/2008 10:13 PM FIBERGLASS BOAT MAKER Murphy Espitia MD HEMATOLOGY ORDERABLES Final Res ult Performing Organization Address [facility] Phone Number INTERFACE SYSTEM Refer to clinic/hospital department [facility] CLIA# [id number] [address] [place] [address] * CARDIAC ENZYMES (05/11/2008 3:50 PM FIBERGLASS BOAT MAKER) Pathologist [facility] TROPONIN I <0.1 0.0 - 1.3 ng/mL [facility] CKMB 0.2 0.0 - 5.0 ng/mL [facility] Blood specimen (specimen) 05/11/2008 3:50 PM FIBERGLASS BOAT MAKER 05/11/2008 4:01 PM FIBERGLASS BOAT MAKER us Murphy Espitia MD CHEMISTRY ORDERABLES Final Resu lt Performing Organization Address [facility] [address]/[facility] de Phone Number INTERFACE SYSTEM Refer to clinic/hospital department [facility] CLIA# [id number] [address] [place] [address] * XR CHEST PA OR AP (05/11/2008 1:07 PM FIBERGLASS BOAT MAKER) Anatomical Region Laterality Modality Chest Other 05/11/2008 1:07 PM FIBERGLASS BOAT MAKER Narrative 05/11/2008 4:41 PM FIBERGLASS BOAT MAKER Exam: Chest - Portable Date/Time of Exam: May 11, 2008 1:07:45 PM History: Chest pain. Findings: Compared with 08/05/2007 and accounting for change in technique and AP portable factors, there has been no significant interval change and there is no evidence of acute disease. - Dictated By: Wilemr Ho M.D. Electronically Signed By: Wilmer Ho M.D. Date Signed: 05/11/08 Procedure Note Wilmer Ho MD - 05/11/2008 Exam: Chest - Portable Date/Time of Exam: May 11, 2008 1:07:45 PM History: Chest pain. Findings: Compared with 08/05/2007 and accounting for change in techniqueand AP portable factors, there has been no significant interval change and there is no evidence of acutedisease. - Dictated By: Wilmer Ho M.D. Electronically Signed By: Wilmer Ho M.D. Date Signed: 05/11/08 us Nam aClvo MD DIAGNOSTIC IMAGING ORDERABLES Final Result * MRSA CULTURE (05/11/2008 10:37 AM FIBERGLASS BOAT MAKER) FINAL REPORT Culture screen for MRSA negative INTERFACE SYSTEM ANTERIOR NARES SWAB / Unknown 05/11/2008 10:37 AM FIBERGLASS BOAT MAKER 05/11/2008 10:37 AM FIBERGLASS BOAT MAKER us Murphy Espitia MD MICROBIOLOGY - GENERAL ORDERABL ES Final Result INTERFACE SYSTEM Refer to clinic/hospital department * URINALYSIS (05/11/2008 5:41 AM FIBERGLASS BOAT MAKER) NITRITE UA NEGATIVE NEGATIVE [facility] UROBILINOGEN UA [address] [facility] CLARITY UA SL CLOUDY Clear [facility] SPECIFIC GRAVITY UA 1.015 <=1.005 [facility] GLUCOSE UA NEGATIVE NEGATIVE [facility] PH UA 8.0 5.0 - 9.0 [facility] BILIRUBIN UA NEGATIVE NEGATIVE [facility] LEUKOCYTE ESTERASE UA NEGATIVE NEGATIVE [facility] KETONES UA NEGATIVE NEGATIVE [facility] MICRO EXAM No No [facility] COLOR UA Yellow Straw [facility] PROTEIN UA NEGATIVE NEGATIVE [facility] BLOOD UA NEGATIVE NEGATIVE [facility] Urine specimen (specimen) 05/11/2008 5:41 AM FIBERGLASS BOAT MAKER 05/11/2008 5:41 AM FIBERGLASS BOAT MAKER us Murphy Espitia MD URINE ORDERABLES Final Result Performing Organization Address City/State/[facility] Co al Phone Number INTERFACE SYSTEM Refer to clinic/hospital department 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
--- OUTSIDE RECORDS SUMMARY | 2025-02-09 23:00 | XMS_ITS | Encounter Summary ---
Author Organization [facility] Address [address] [place] [address] Care Team Providers Care Advertising Manager Name Role Phone Dara Tavera AMANDEEP Primary Care Provider [phone] Encounter Details Date Type Department Care Team (Latest Contact Info) Description 09/24/2002 Outpatient Historical [facility] Ear, Nose and Throat [address] [place] [address] Dmitri Vega MD [address] [place] [address] Leukoplakia oral mucosa (Primary Dx) Social History Tobacco Use Types Packs/Day Years Used Date Smoking Tobacco: Never Assessed Comments Unknown Sex and Gender Information Value Date Recorded Sex Assigned at Not on file Legal Sex Female 5:22 AM ELECTRONIC SCALE ASSEMBLER AND TESTER Gender Identity Not on file Sexual [...] Resolved 11/04/2013 11/04/2013 8 10:33 AM ELECTRONIC SCALE ASSEMBLER AND TESTER R/O COVID-19 12/25/2019 12/25/2019 12/26/2019 2:46 PM CDT R/O COVID-19 05/09/2020 05/09/2020 05/09/2020 12:1 7 PM ELECTRONIC SCALE ASSEMBLER AND TESTER documented as of this encounter Care Teams Advertising Manager Relationship Specialty Start Date End Date Dara Tavera FNP [address] [place] [address] PCP - General NURSE PRACTITIONER 10/13/18 documented as of this encounter
--- OUTSIDE RECORDS SUMMARY | 2025-02-09 23:00 | XMS_ITS | Encounter Summary ---
Author Organization [facility] Address [address] [place] [address] Care Team Providers Care Data Conversion Operator Name Role Phone Dara Tavera AMANDEEP Primary Care Provider Encounter Details Date Type Department Care Team (Latest Contact Info) Description 07/30/1997 Outpatient Historical [facility] Roney Arora MD [address] [facility] [address] [place] [address] Bipolar I disorder, most recent episode (or current) unspecified (CMS/HCC) (Primary Dx); Unspecified osteomyelitis, other specified site; Nausea with vomiting Social History Tobacco Use Types Packs/Day Years Used Date Smoking Tobacco: Never Assessed Comments Unknown Sex and Gender Information Value Date Recorded Sex Assigned at Not on file Legal Sex Female 5:22 AM POPCORN VENDOR Gender Identity Not on file Sexual Orientation Not on file documented as of this encounter Plan of Treatment Not on file documented as of this encounter Visit Diagnoses Diagnosis Bipolar I disorder, most recent episode (or current) unspecified (CMS/HCC)- Primary Bipolar I disorder, most recent episode (or current) unspecified Unspecified osteomyelitis, other specified site Nausea with vomiting documented in this encounter Additional Health Concerns Infection Onset Date Last Indicated Resolved Time VRE Comment:Urine 10/30/13 Resolved 11/04/2013 11/04/2013 8 10:33 AM POPCORN VENDOR R/O COVID-19 12/25/2019 12/25/2019 12/26/2019 2:46 PM CDT R/O COVID-19 05/09/2020 05/09/2020 05/09/2020 12:1 7 PM POPCORN VENDOR documented as of this encounter Care Teams Data Conversion Operator Relationship Specialty Start Date End Date Dara Tavera FNP [address] [place] [address] PCP - General NURSE PRACTITIONER 10/13/18 documented as of this encounter
--- OUTSIDE RECORDS SUMMARY | 2025-02-09 23:00 | XMS_ITS | Encounter Summary ---
Author Organization [facility] Address [address] [place] [address] Care Team Providers Care Repairer Maintenance Building Name Role Phone Dara Tavera AMANDEEP Primary Care Provider Encounter Details Date Type Department Care Team (Late st Contact Info) Description 04/30/2007 Emergency [facility] Emergency Department [address] [place] [address] Jillian Joyce MD [address] [place] [address] Other Acute Pain (Primary Dx) Social History Tobacco Use Types Packs/Day Years Used Date Smoking Tobacco: Never Assessed Comments Unknown Sex and Gender Information Value Date Recorded Sex Assigned at Not on file Legal Sex Female 5:22 AM LIME HIDE INSPECTOR Gender Identity Not on file Sexual Orientation Not on file documented as of this encounter Plan of Treatment Not on file documented as of this encounter Procedures Procedure Name Priority Date/Time Associated Diagnosis Comments URINALYSIS W/REFLEX MICROSCOPIC Routine 04/30/2007 9:34 PM LIME HIDE INSPECTOR PT AND APTT Routine 04/30/2007 7:35 PM LIME HIDE INSPECTOR CBC WITH DIFFERENTIAL Routine 04/30/2007 7:35 PM LIME HIDE INSPECTOR LIPASE Routine 04/30/2007 7:35 PM LIME HIDE INSPECTOR COMPREHENSIVE METABOLIC PANEL Routine 04/30/2007 7:35 PM LIME HIDE INSPECTOR documented in this encounter Results * URINALYSIS (04/30/2007 9:34 PM LIME HIDE INSPECTOR) COLOR UA Straw Straw INTERFACE SYSTEM CLARITY UA Clear Clear INTERFACE SYSTEM LEUKOCYTE ESTERASE UA NEGATIVE NEGATIVE INTERFACE SYSTEM NITRITE UA NEGATIVE NEGATIVE INTERFACE SYSTEM PH UA 6.5 5.0 - 9.0 INTERFACE SYSTEM PROTEIN UA NEGATIVE NEGATIVE INTERFACE SYSTEM GLUCOSE UA NEGATIVE NEGATIVE INTERFACE SYSTEM KETONES UA NEGATIVE NEGATIVE INTERFACE SYSTEM UROBILINOGEN UA 0.2 0.2 INTE RFACE SYSTEM BILIRUBIN UA NEGATIVE NEGATIVE INTERFA CE SYSTEM BLOOD UA NEGATIVE NEGATIVE INTERFACE SYSTEM SPECIFIC GRAVITY UA 1.004 <=1.005 INTERFACE SYSTEM MICRO EXAM No No INTERFACE SYSTEM 04/30/2007 9:34 PM LIME HIDE INSPECTOR us Jillian Joyce MD URINE ORDERABLES Edited INTERFACE SYSTEM Refer to clinic/hospital department * PT AND APTT (04/30/2007 7:35 PM LIME HIDE INSPECTOR) PROTIME 15.1 13.0 - 15.7 Secs INTERFACE SYSTEM Comment: As of 06 note change in normal range. INR 1.1 INTERFACE SYSTEM Comment: Expected Values for INR: DVT/PE Goal INR 2.5; range 2.0 - 3.0 Valve Replacement Tissue Goal INR 2.5; range 2.0 - 3.0 Mechanical Goal INR 3.0; range 2.5 - 3.5 POST-DE Goal INR 2.5; range 2.0 - 3.0 or Goal 3.0; range 2.5 - 3.5 Atrial Fibrillation Goal INR 2.5; range 2.0 - 3.0 Ischemic Stroke Goal INR 2.5; range 2.0 - 3.0 For additional information see Guidelines for Anticoagulation available from the pharmacy Latrell Donohue PTT 33.8 21.6 - 35.6 Secs INTERFACE SYSTEM Comment: Therapeutic Range: Hi-level PE/DVT heparin protocol 80.1 -95.0 sec Lo-level PE/DVT heparin protocol 67.1 - 80.0 sec Cardiac Heparin Protocol 67.1 - 85.0 sec Neuro Heparin Protocol 67.1 - 80.0 sec As of 05/25/2006 note change in APTT Normal Range. 04/30/2007 7:35 PM LIME HIDE INSPECTOR Jillian Joyce MD HEMATOLOGY ORDERABLES Edit ed Performing Organization Address City/[facility]/ZIP Co de Phone Number INTERFACE SYSTEM Refer to clinic/hospital department * (ABNORMAL) CBC WITH DIFFERENTIAL (04/30/2007 7:35 PM LIME HIDE INSPECTOR) WBC 18.3(H) 4.5 - 11.0 K/ul INTERFACE SYSTEM RBC 4.26 4.20 - 5.40 Mil/ul INTERFACE SYSTEM HEMOGLOBIN 12.7 12.0 - 16.0 g/dL INTERFACE SYSTEM HEMATOCRIT 37.1 36.0 - 46.0 % INTERFACE SYSTEM MCV 87.1 84.0 - 103.0 Fl INTERFACE SYSTEM MCH 29.8 27.0 - 34.0 pg INTERFACE SYSTEM MCHC 34.2 30.0 - 35.0 g/dL INTERFACE SYSTEM RDW 13.3 11.0 - 14.5 % INTERFACE SYSTEM PLATELETS 228 140 - 440 K/ul INTERFACE SYSTEM MPV 10.9 8.9 - 12.8 Fl INTERFACE SYSTEM NEUTROPHILS 79.7(H) 42.2 - 75.2 % INTERFACE SYSTEM LYMPHOCYTES 12.2(L) 24.0 - 44.0 % INTERFACE SYSTEM MONOCYTES 6.5 2.0 - 10.0 % INTERFACE SYSTEM EOSINOPHILS 1.3 0.0 - 7.0 % INTERFACE SYSTEM BASOPHILS 0.3 0.0 - 1.0 % INTERFACE SYSTEM NEUTROPHIL ABSOLUTE 14.6(H) 2.0 - 8.0 K/ul INTERFACE SYSTEM LYMPHOCYTE ABSOLUTE 2.2 1.2 - 4.0 K/ul INTERFACE SYSTEM MONOCYTE ABSOLUTE 1.2(H) 0.1 - 0.6 K/ul INTERFACE SYSTEM EOSINOPHIL ABSOLUTE 0.2 0.0 - 0.7 K/ul INTERFACE SYSTEM BASOPHILS ABSOLUTE 0.1 0.0 - 0.2 K/ul INTERFACE SYSTEM 04/30/2007 7:35 PM LIME HIDE INSPECTOR Jillian Joyce MD HEMATOLOGY ORDERABLES Edit ed INTERFACE SYSTEM Refer to clinic/hospital department * (ABNORMAL) COMPREHENSIVE METABOLIC PANEL (04/30/2007 7:35 PM LIME HIDE INSPECTOR) GLUCOSE 103 70 - 110 mg/dL INTERFACE SYSTEM BUN 10 7 - 17 mg/dL INTERFACE SYSTEM CREATININE 0.9 0.7 - 1.2 mg/dL INTERFACE SYSTEM SODIUM 139 136 - 145 mEq/L INTERFACE SYSTEM POTASSIUM 3.4(L) 3.5 - 5.0 mEq/L INTERFACE SYSTEM CHLORIDE 112(H) 95 - 110 mEq/L INTERFACE SYSTEM CO2 17(L) 22 - 32 mmol/l INTERFACE SYSTEM CALCIUM 9.3 8.4 - 10.5 mg/dL INTERFACE SYSTEM TOTAL PROTEIN 7.1 6.3 - 8.2 g/dL INTERFACE SYSTEM ALBUMIN 4.2 3.5 - 5.0 g/dL INTERFACE SYSTEM ALKALINE PHOSPHATASE 138(H) 25 - 100 U/L INTERFACE SYSTEM AST 22 8 - 33 U/L INTERFACE SYSTEM ALT 25 4 - 36 IU/L INTERFACE SYSTEM BILIRUBIN TOTAL 0.2(L) 0.3 - 1.2 mg/dL INTERFACE SYSTEM GLOBULIN (CALC) 2.9 2.4 - 3.9 g/dL INTERFACE SYSTEM ALBUMIN/GLOBULIN RATIO 1.4 1.0 - 2.3 INTERFACE SYSTEM ANION GAP 13 9 - 20 mEq/L INTERFACE SYSTEM OSMOLALITY, CALCULATED 284 275 - 295 mOsm/Kg INTERFACE SYSTEM 04/30/2007 7:35 PM LIME HIDE INSPECTOR us Jillian Joyce MD CHEMISTRY ORDERABLES Edite d Performing Organization Address [facility] Phone Number INTERFACE SYSTEM Refer to clinic/hospital department * LIPASE (04/30/2007 7:35 PM LIME HIDE INSPECTOR) LIPASE 23 6 - 51 U/L INTERFACE SYSTEM 04/30/2007 7:35 PM LIME HIDE INSPECTOR Jillian Joyce MD CHEMISTRY ORDERABLES Edite d Performing Organization Address [facility] Co nd Phone Number INTERFACE SYSTEM Refer to clinic/hospital department documented in this encounter Visit Diagnoses Diagnosis Other acute pain- Primary documented in this encounter Additional Health Concerns Infection Onset Date Last Indicated Resolved Time VRE Comment:Urine 10/30/13 Resolved 11/04/2013 11/04/2013 8 10:33 AM LIME HIDE INSPECTOR R/O COVID-19 12/25/2019 12/25/2019 12/26/2019 2:46 PM CDT R/O COVID-19 05/09/2020 05/09/2020 05/09/2020 12:1 7 PM LIME HIDE INSPECTOR documented as of this encounter Care Teams Repairer Maintenance Building Relationship Specialty Start Date End Date Dara Tavera FNP [address] [place] [address] PCP - General NURSE PRACTITIONER 10/13/18 documented as of this encounter
--- OUTSIDE RECORDS SUMMARY | 2025-02-09 23:00 | XMS_ITS | Encounter Summary ---
Author Organization [facility] Address [address] [place] [address] Care Team Providers Care Swing Frame Grinder Operator Name Role Phone Dara Tavera Primary Care Provider [phone] Encounter Details Date Type Department Care Team (Late st Contact Info) Description 07/16/2007 [facility] [address] [place] [address] Tej Will MD [address] [address] Social History Tobacco Use Types Packs/Day Years Used Date Smoking Tobacco: Never Assessed Comments Unknown Sex and Gender Information Value Date Recorded Sex Assigned at Not on file Legal Sex Female 5:22 AM CABLE RIGGER Gender Identity Not on file Sexual Orientation Not on file documented as of this encounter Plan of Treatment Not on file documented as of this encounter Visit Diagnoses Not on filedocumented in this encounter Additional Health Concerns Infection Onset Date Last Indicated Resolved Time VRE Comment:Urine 10/30/13 Resolved 11/04/2013 11/04/2013 8 10:33 AM CABLE RIGGER R/O COVID-19 12/25/2019 12/25/2019 12/26/2019 2:46 PM CDT R/O COVID-19 05/09/2020 05/09/2020 05/09/2020 12:1 7 PM CABLE RIGGER documented as of this encounter Care Teams Swing Frame Grinder Operator Relationship Specialty Start Date End Date Dara Tavera FNP [address] [place] [phone] PCP - General NURSE PRACTITIONER 10/13/18 documented as of this encounter
--- OUTSIDE RECORDS SUMMARY | 2025-02-09 23:00 | XMS_ITS | Encounter Summary ---
Author Organization [facility] Address [address] [place]ello: [place] [address] Care Team Providers Care Process Helper Name Role Phone Dara Tavera Primary Care Provider [phone] Encounter Details Date Type Department Care Team ([facility] st Contact Info) Description 11/25/1999 Outpatient Historical [place] [facility], [place], [address] [place] [id number] Social History Tobacco Use Types Packs/Day Years Used Date Smoking Tobacco: Never Assessed Comments Unknown Sex and Gender Information Value Date Recorded Sex Assigned at Not on file Legal Sex Female 5:22 AM ATTENDING RADIOLOGIST Gender Identity Not on file Sexual Orientation Not on file documented as of this encounter Plan of Treatment Not on file documented as of this encounter Visit Diagnoses Not on filedocumented in this encounter Additional Health Concerns Infection Onset Date Last Indicated Resolved Time VRE Comment:Urine 10/30/13 Resolved 11/04/2013 11/04/2013 8 10:33 AM ATTENDING RADIOLOGIST R/O COVID-19 12/25/2019 12/25/2019 12/26/2019 2:46 PM CDT R/O COVID-19 05/09/2020 05/09/2020 05/09/2020 12:1 7 PM ATTENDING RADIOLOGIST documented as of this encounter Care Teams Process Helper Relationship Specialty Start Date End Date Dara Tavera FNP [address] [place] [phone] PCP - General NURSE PRACTITIONER 10/13/18 documented as of this encounter
--- OUTSIDE RECORDS SUMMARY | 2025-02-09 23:00 | XMS_ITS | Encounter Summary ---
Author Organization [facility] Address [address] [place] [address] Care Team Providers Care Bottoming Room Inspector Name Role Phone Dara Tavera AMANDEEP Primary Care Provider Encounter Details Date Type Department Care Team (Late st Contact Info) Description 06/03/2007 Emergency [facility] Emergency Department [address] [place] [address] Ed, Physician NO ADDRESS ON FILE Oniel Sainz MD [address] [place] [address] Social History Tobacco Use Types Packs/Day Years Used Date Smoking Tobacco: Never Assessed Comments Unknown Sex and Gender Information Value Date Recorded Sex Assigned at Not on file Legal Sex Female 5:22 AM FARM EQUIPMENT MECHANIC Gender Identity Not on file Sexual Orientation Not on file documented as of this encounter Plan of Treatment Not on file documented as of this encounter Procedures Procedure Name Priority Date/Time Associated Diagnosis Comments CBC WITH DIFFERENTIAL Routine 06/03/2007 9:39 PM FARM EQUIPMENT MECHANIC COMPREHENSIVE METABOLIC PANEL Routine 06/03/2007 9:39 PM FARM EQUIPMENT MECHANIC URINALYSIS W/REFLEX MICROSCOPIC Routine 06/03/2007 9:26 PM FARM EQUIPMENT MECHANIC documented in this encounter Results * (ABNORMAL) COMPREHENSIVE METABOLIC PANEL (06/03/2007 9:39 PM FARM EQUIPMENT MECHANIC) [facility] GLUCOSE 97 70 - 110 mg/dL INTERFACE SYSTEM BUN 18(H) 7 - 17 mg/dL INTERFACE SYSTEM CREATININE 1.0 0.7 - 1.2 mg/dL INTERFACE SYSTEM SODIUM 140 136 - 145 mEq/L INTERFACE SYSTEM POTASSIUM 3.7 3.5 - 5.0 mEq/L INTERFACE SYSTEM CHLORIDE 115(H) 95 - 110 mEq/L INTERFACE SYSTEM CO2 19(L) 22 - 32 mmol/l INTERFACE SYSTEM CALCIUM 9.2 8.4 - 10.5 mg/dL INTERFACE SYSTEM TOTAL PROTEIN 6.8 6.3 - 8.2 g/dL INTERFACE SYSTEM ALBUMIN 4.0 3.5 - 5.0 g/dL INTERFACE SYSTEM ALKALINE PHOSPHATASE 121(H) 25 - 100 U/L INTERFACE SYSTEM AST 13 8 - 33 U/L INTERFACE SYSTEM ALT 18 4 - 36 IU/L INTERFACE SYSTEM BILIRUBIN TOTAL 0.2(L) 0.3 - 1.2 mg/dL INTERFACE SYSTEM GLOBULIN (CALC) 2.8 2.4 - 3.9 g/dL INTERFACE SYSTEM ALBUMIN/GLOBULIN RATIO 1.4 1.0 - 2.3 INTERFACE SYSTEM ANION GAP 10 9 - 20 mEq/L INTERFACE SYSTEM OSMOLALITY, CALCULATED 289 275 - 295 mOsm/Kg INTERFACE SYSTEM 06/03/2007 9:39 PM FARM EQUIPMENT MECHANIC us Oniel Sainz MD CHEMISTRY ORDERABLES Edited INTERFACE SYSTEM Refer to clinic/hospital department * (ABNORMAL) CBC WITH DIFFERENTIAL (06/03/2007 9:39 PM FARM EQUIPMENT MECHANIC) Pathologist [facility] WBC 9.5 4.5 - 11.0 K/ul INTERFACE SYSTEM RBC 4.20 4.20 - 5.40 Mil/ul INTERFACE SYSTEM HEMOGLOBIN 12.4 12.0 - 16.0 g/dL INTERFACE SYSTEM HEMATOCRIT 36.8 36.0 - 46.0 % INTERFACE SYSTEM MCV 87.6 84.0 - 103.0 Fl INTERFACE SYSTEM MCH 29.5 27.0 - 34.0 pg INTERFACE SYSTEM MCHC 33.7 30.0 - 35.0 g/dL INTERFACE SYSTEM RDW 14.0 11.0 - 14.5 % INTERFACE SYSTEM PLATELETS 235 140 - 440 K/ul INTERFACE SYSTEM MPV 10.2 8.9 - 12.8 Fl INTERFACE SYSTEM NEUTROPHILS 49.2 42.2 - 75.2 % INTERFACE SYSTEM LYMPHOCYTES 36.5 24.0 - 44.0 % INTERFACE SYSTEM MONOCYTES 7.2 2.0 - 10.0 % INTERFACE SYSTEM EOSINOPHILS 5.9 0.0 - 7.0 % INTERFACE SYSTEM BASOPHILS 1.2(H) 0.0 - 1.0 % INTERFACE SYSTEM NEUTROPHIL ABSOLUTE 4.7 2.0 - 8.0 K/ul INTERFACE SYSTEM LYMPHOCYTE ABSOLUTE 3.5 1.2 - 4.0 K/ul INTERFACE SYSTEM MONOCYTE ABSOLUTE 0.7(H) 0.1 - 0.6 K/ul INTERFACE SYSTEM EOSINOPHIL ABSOLUTE 0.6 0.0 - 0.7 K/ul INTERFACE SYSTEM BASOPHILS ABSOLUTE 0.1 0.0 - 0.2 K/ul INTERFACE SYSTEM 06/03/2007 9:39 PM FARM EQUIPMENT MECHANIC Oniel Sainz MD HEMATOLOGY ORDERABLES Edited Performing Organization Address City/[facility] de Phone Number INTERFACE SYSTEM Refer to clinic/hospital department * URINALYSIS (06/03/2007 9:26 PM FARM EQUIPMENT MECHANIC) COLOR UA Yellow Straw INTERFACE SYSTEM CLARITY UA Clear Clear INTERFACE SYSTEM LEUKOCYTE ESTERASE UA NEGATIVE NEGATIVE INTERFACE SYSTEM NITRITE UA NEGATIVE NEGATIVE INTERFACE SYSTEM PH UA 5.5 5.0 - 9.0 INTERFACE SYSTEM PROTEIN UA NEGATIVE NEGATIVE INTERFACE SYSTEM GLUCOSE UA NEGATIVE NEGATIVE INTERFACE SYSTEM KETONES UA NEGATIVE NEGATIVE INTERFACE SYSTEM UROBILINOGEN UA 0.2 0.2 INTE RFACE SYSTEM BILIRUBIN UA NEGATIVE NEGATIVE INTERFA CE SYSTEM BLOOD UA NEGATIVE NEGATIVE INTERFACE SYSTEM SPECIFIC GRAVITY UA 1.025 <=1.005 INTERFACE SYSTEM MICRO EXAM No No INTERFACE SYSTEM 06/03/2007 9:26 PM FARM EQUIPMENT MECHANIC Oniel Sainz MD URINE ORDERABLES Edited Performing Organization Address City/[facility] Co de Phone Number INTERFACE SYSTEM Refer to clinic/hospital department documented in this encounter Visit Diagnoses Not on filedocumented in this encounter Additional Health Concerns Infection Onset Date Last Indicated Resolved Time VRE Comment:Urine 10/30/13 Resolved 11/04/2013 11/04/2013 8 10:33 AM FARM EQUIPMENT MECHANIC R/O COVID-19 12/25/2019 12/25/2019 12/26/2019 2:46 PM CDT R/O COVID-19 05/09/2020 05/09/2020 05/09/2020 12:1 7 PM FARM EQUIPMENT MECHANIC documented as of this encounter Care Teams Bottoming Room Inspector Relationship Specialty Start Date End Date Dara Tavera FNP [address] [place] [phone] PCP - General NURSE PRACTITIONER 10/13/18 documented as of this encounter
--- OUTSIDE RECORDS SUMMARY | 2025-02-09 23:00 | XMS_ITS | Encounter Summary ---
Author Organization [facility] Address [address] [place] [address] Care Team Providers Care Coding Manager Name Role Phone Dara Tavera AMANDEEP Primary Care Provider Encounter Details Date Type Department Care Team (Latest Contact Info) Description 04/24/2008 Outpatient Historical [facility] [address] [place] [address] AMBULANCE, [facility] Unspecified Acute Reaction to Stress; Unspecified Epilepsy without Mention of Intractable Epilepsy (CMS/HCC); Tobacco Use Disorder; Encounter for Long-Term (Current) Use of Other Medications; Personal History of Allergy to Narcotic Agent; Personal History of Allergy to Analgesic Agent; Personal History of Allergy to Other Specified Medicinal Agents Social History Tobacco Use Types Packs/Day Years Used Date Smoking Tobacco: Never Assessed Comments Unknown Sex and Gender Information Value Date Recorded Sex Assigned at Not on file Legal Sex Female 5:22 AM CONTROL SYSTEM COMPUTER SCIENTIST Gender Identity Not on file Sexual Orientation Not on file documented as of this encounter Plan of Treatment Not on file documented as of this encounter Visit Diagnoses Diagnosis Unspecified acute reaction to stress Unspecified epilepsy without mention of intractable epilepsy (CMS/HCC) Unspecified epilepsy without mention of intractable epilepsy Tobacco use disorder Encounter for long-term (current) use of other medications Personal history of allergy to narcotic agent Personal history of allergy to analgesic agent Personal history of allergy to other specified medicinal agents documented in this encounter Additional Health Concerns Infection Onset Date Last Indicated Resolved Time VRE Comment:Urine 10/30/13 Resolved 11/04/2013 11/04/2013 8 10:33 AM CONTROL SYSTEM COMPUTER SCIENTIST R/O COVID-19 12/25/2019 12/25/2019 12/26/2019 2:46 PM CDT R/O COVID-05/09/2020 05/09/2020 05/09/2020 12:1 7 PM CONTROL SYSTEM COMPUTER SCIENTIST documented as of this encounter Care Teams Coding Manager Relationship Specialty Start Date End Date Dara Tavera FNP [address] [place] [phone] PCP - General NURSE PRACTITIONER 10/13/18 documented as of this encounter
--- OUTSIDE RECORDS SUMMARY | 2025-02-09 23:00 | XMS_ITS | Encounter Summary ---
Author Organization [facility] Address [address] [place] [address] Care Team Providers Care Manager Language Name Role Phone Dara Tavera AMANDEEP Primary Care Provider Encounter Details Date Type Department Care Team (Late st Contact Info) Description 04/29/2007 Emergency [facility] Emergency Department [address] [place] [address] Temo Nagel MD [address] [place] [address] Abdominal Pain, Other Specified Site (Primary Dx) Social History Tobacco Use Types Packs/Day Years Used Date Smoking Tobacco: Never Assessed Comments Unknown Sex and Gender Information Value Date Recorded Sex Assigned at Not on file Legal Sex Female 5:22 AM DIRECTOR SURGICAL Gender Identity Not on file Sexual Orientation Not on file documented as of this encounter Plan of Treatment Not on file documented as of this encounter Visit Diagnoses Diagnosis Abdominal pain, other specified site- Primary documented in this encounter Additional Health Concerns Infection Onset Date Last Indicated Resolved Time VRE Comment:Urine 10/30/13 Resolved 11/04/2013 11/04/2013 8 10:33 AM DIRECTOR SURGICAL R/O COVID-19 12/25/2019 12/25/2019 12/26/2019 2:46 PM CDT R/O COVID-19 05/09/2020 05/09/2020 05/09/2020 12:1 7 PM DIRECTOR SURGICAL documented as of this encounter Care Teams Manager Language Relationship Specialty Start Date End Date Dara Tavera FNP [address] [place] [phone] PCP - General NURSE PRACTITIONER 10/13/18 documented as of this encounter
--- OUTSIDE RECORDS SUMMARY | 2025-02-09 23:00 | XMS_ITS | Encounter Summary ---
Author Organization [facility] Address [address] [place] [address] Care Team Providers Care Air Analyst Name Role Phone Dara Tavera AMANDEEP Primary Care Provider Encounter Details Date Type Department Care Team (Late st Contact Info) Description 04/27/2007 Emergency [facility] Emergency Department [address] [place] [address] Sammi Justice MD [address] [place] [address] Abdominal Pain, Other Specified Site (Primary Dx) Social History Tobacco Use Types Packs/Day Years Used Date Smoking Tobacco: Never Assessed Comments Unknown Sex and Gender Information Value Date Recorded Sex Assigned at Not on file Legal Sex Female 5:22 AM BODY SHOP SUPERVISOR Gender Identity Not on file Sexual Orientation Not on file documented as of this encounter Plan of Treatment Not on file documented as of this encounter Procedures Procedure Name Priority Date/Time Associated Diagnosis Comments URINALYSIS W/REFLEX MICROSCOPIC Routine 04/27/2007 6:20 PM BODY SHOP SUPERVISOR CBC WITH DIFFERENTIAL Routine 04/27/2007 6:09 PM BODY SHOP SUPERVISOR COMPREHENSIVE METABOLIC PANEL Routine 04/27/2007 6:09 PM BODY SHOP SUPERVISOR documented in this encounter Results * URINALYSIS (04/27/2007 6:20 PM BODY SHOP SUPERVISOR) COLOR UA Yellow Straw INTERFACE SYSTEM CLARITY UA Clear Clear INTERFACE SYSTEM LEUKOCYTE ESTERASE UA NEGATIVE NEGATIVE INTERFACE SYSTEM NITRITE UA NEGATIVE NEGATIVE INTERFACE SYSTEM PH UA 6.0 5.0 - 9.0 INTERFACE SYSTEM PROTEIN UA NEGATIVE NEGATIVE INTERFACE SYSTEM GLUCOSE UA NEGATIVE NEGATIVE INTERFACE SYSTEM KETONES UA NEGATIVE NEGATIVE INTERFACE SYSTEM UROBILINOGEN UA 0.2 0.2 INTE RFACE SYSTEM BILIRUBIN UA NEGATIVE NEGATIVE INTERFA CE SYSTEM BLOOD UA NEGATIVE NEGATIVE INTERFACE SYSTEM SPECIFIC GRAVITY UA 1.025 <=1.005 INTERFACE SYSTEM MICRO EXAM No No INTERFACE SYSTEM 04/27/2007 6:20 PM BODY SHOP SUPERVISOR Sammi Justice MD URINE ORDERABLES Edited Performing Organization Address City/[facility] Co de Phone Number INTERFACE SYSTEM Refer to clinic/hospital department * (ABNORMAL) COMPREHENSIVE METABOLIC PANEL (04/27/2007 6:09 PM BODY SHOP SUPERVISOR) GLUCOSE 108 70 - 110 mg/dL INTERFACE SYSTEM BUN 13 7 - 17 mg/dL INTERFACE SYSTEM CREATININE 0.9 0.7 - 1.2 mg/dL INTERFACE SYSTEM SODIUM 141 136 - 145 mEq/L INTERFACE SYSTEM POTASSIUM 3.7 3.5 - 5.0 mEq/L INTERFACE SYSTEM CHLORIDE 115(H) 95 - 110 mEq/L INTERFACE SYSTEM CO2 19(L) 22 - 32 mmol/l INTERFACE SYSTEM CALCIUM 9.2 8.4 - 10.5 mg/dL INTERFACE SYSTEM TOTAL PROTEIN 6.7 6.3 - 8.2 g/dL INTERFACE SYSTEM ALBUMIN 4.0 3.5 - 5.0 g/dL INTERFACE SYSTEM ALKALINE PHOSPHATASE 138(H) 25 - 100 U/L INTERFACE SYSTEM AST 15 8 - 33 U/L INTERFACE SYSTEM ALT 17 4 - 36 IU/L INTERFACE SYSTEM BILIRUBIN TOTAL 0.1(L) 0.3 - 1.2 mg/dL INTERFACE SYSTEM GLOBULIN (CALC) 2.7 2.4 - 3.9 g/dL INTERFACE SYSTEM ALBUMIN/GLOBULIN RATIO 1.5 1.0 - 2.3 INTERFACE SYSTEM ANION GAP 11 9 - 20 mEq/L INTERFACE SYSTEM OSMOLALITY, CALCULATED 290 275 - 295 mOsm/Kg INTERFACE SYSTEM 04/27/2007 6:09 PM BODY SHOP SUPERVISOR Sammi Justice MD CHEMISTRY ORDERABLES Edited INTERFACE SYSTEM Refer to clinic/hospital department * (ABNORMAL) CBC WITH DIFFERENTIAL (04/27/2007 6:09 PM BODY SHOP SUPERVISOR) WBC 11.0 4.5 - 11.0 K/ul INTERFACE SYSTEM RBC 4.26 4.20 - 5.40 Mil/ul INTERFACE SYSTEM HEMOGLOBIN 12.8 12.0 - 16.0 g/dL INTERFACE SYSTEM HEMATOCRIT 36.7 36.0 - 46.0 % INTERFACE SYSTEM MCV 86.2 84.0 - 103.0 Fl INTERFACE SYSTEM MCH 30.0 27.0 - 34.0 pg INTERFACE SYSTEM MCHC 34.9 30.0 - 35.0 g/dL INTERFACE SYSTEM RDW 13.0 11.0 - 14.5 % INTERFACE SYSTEM PLATELETS 215 140 - 440 K/ul INTERFACE SYSTEM MPV 10.8 8.9 - 12.8 Fl INTERFACE SYSTEM NEUTROPHILS 63.4 42.2 - 75.2 % INTERFACE SYSTEM LYMPHOCYTES 26.6 24.0 - 44.0 % INTERFACE SYSTEM MONOCYTES 6.9 2.0 - 10.0 % INTERFACE SYSTEM EOSINOPHILS 2.6 0.0 - 7.0 % INTERFACE SYSTEM BASOPHILS 0.5 0.0 - 1.0 % INTERFACE SYSTEM NEUTROPHIL ABSOLUTE 7.0 2.0 - 8.0 K/ul INTERFACE SYSTEM LYMPHOCYTE ABSOLUTE 2.9 1.2 - 4.0 K/ul INTERFACE SYSTEM MONOCYTE ABSOLUTE 0.8(H) 0.1 - 0.6 K/ul INTERFACE SYSTEM EOSINOPHIL ABSOLUTE 0.3 0.0 - 0.7 K/ul INTERFACE SYSTEM BASOPHILS ABSOLUTE 0.1 0.0 - 0.2 K/ul INTERFACE SYSTEM 04/27/2007 6:09 PM BODY SHOP SUPERVISOR us Sammi Justice MD HEMATOLOGY ORDERABLES Edite d INTERFACE SYSTEM Refer to clinic/hospital department documented in this encounter Visit Diagnoses Diagnosis Abdominal pain, other specified site- Primary documented in this encounter Additional Health Concerns Infection Onset Date Last Indicated Resolved Time VRE Comment:Urine 10/30/13 Resolved 11/04/2013 11/04/2013 8 10:33 AM BODY SHOP SUPERVISOR R/O COVID-19 12/25/2019 12/25/2019 12/26/2019 2:46 PM CDT R/O COVID-19 05/09/2020 05/09/2020 05/09/2020 12:1 7 PM BODY SHOP SUPERVISOR documented as of this encounter Care Teams Air Analyst Relationship Specialty Start Date End Date Dara Tavera FNP [address] [place] [address] PCP - General NURSE PRACTITIONER 10/13/18 documented as of this encounter
--- OUTSIDE RECORDS SUMMARY | 2025-02-09 23:00 | XMS_ITS | Encounter Summary ---
Author Organization [facility] Address [address] [place] [address] Care Team Providers Care Patcher Bowling Ball Name Role Phone Dara Tavera Primary Care Provider Encounter Details Date Type Department Care Team (Late st Contact Info) Description 07/12/2007 Emergency [facility] Emergency Department [address] [place] [address] Ed, Physician NO ADDRESS ON FILE Oniel Sainz MD [address] [place] [address] Social History Tobacco Use Types Packs/Day Years Used Date Smoking Tobacco: Never Assessed Comments Unknown Sex and Gender Information Value Date Recorded Sex Assigned at Not on file Legal Sex Female 5:22 AM ROSTER CLERK Gender Identity Not on file Sexual Orientation Not on file documented as of this encounter Plan of Treatment Not on file documented as of this encounter Visit Diagnoses Not on filedocumented in this encounter Additional Health Concerns Infection Onset Date Last Indicated Resolved Time VRE Comment:Urine 10/30/13 Resolved 11/04/2013 11/04/2013 8 10:33 AM ROSTER CLERK R/O COVID-19 12/25/2019 12/25/2019 12/26/2019 2:46 PM CDT R/O COVID-19 05/09/2020 05/09/2020 05/09/2020 12:1 7 PM ROSTER CLERK documented as of this encounter Care Teams Patcher Bowling Ball Relationship Specialty Start Date End Date Dara Tavera FNP [address] [place] [phone] PCP - General NURSE PRACTITIONER 10/13/18 documented as of this encounter
--- OUTSIDE RECORDS SUMMARY | 2025-02-09 23:00 | XMS_ITS | Encounter Summary ---
Author Organization [facility] Address [address] [place] [address] Care Team Providers Care Top Cleaner Name Role Phone Dara Tavera Primary Care Provider Encounter Details Date Type Department Care Team (Late st Contact Info) Description 05/13/2007 Outpatient [facility] [address] [place] [address] AMBULANCE, [facility] Social History Tobacco Use Types Packs/Day Years Used Date Smoking Tobacco: Never Assessed Comments Unknown Sex and Gender Information Value Date Recorded Sex Assigned at Not on file Legal Sex Female 5:22 AM COMPOSITION BOARD PRESS OPERATOR Gender Identity Not on file Sexual Orientation Not on file documented as of this encounter Plan of Treatment Not on file documented as of this encounter Visit Diagnoses Not on filedocumented in this encounter Additional Health Concerns Infection Onset Date Last Indicated Resolved Time VRE Comment:Urine 10/30/13 Resolved 11/04/2013 11/04/2013 8 10:33 AM COMPOSITION BOARD PRESS OPERATOR R/O COVID-19 12/25/2019 12/25/2019 12/26/2019 2:46 PM CDT R/O COVID-19 05/09/2020 05/09/2020 05/09/2020 12:1 7 PM COMPOSITION BOARD PRESS OPERATOR documented as of this encounter Care Teams Top Cleaner Relationship Specialty Start Date End Date Dara Tavera FNP [address] [place] [phone] PCP - General NURSE PRACTITIONER 10/13/18 documented as of this encounter
--- OUTSIDE RECORDS SUMMARY | 2025-02-09 23:00 | XMS_ITS | Encounter Summary ---
Author Organization [facility] Address [address] [place] [address] Care Team Providers Care Stiff Straw Hat Washer Name Role Phone Dara Tavera AMANDEEP Primary Care Provider [phone] Encounter Details Date Type Department Care Team (Late st Contact Info) Description 05/16/2007 Emergency [facility] Emergency Department [address] [place] [address] Ed, Physician NO ADDRESS ON FILE Thiago Mota MD NO ADDRESS ON FILE Social History Tobacco Use Types Packs/Day Years Used Date Smoking Tobacco: Never Assessed Comments Unknown Sex and Gender Information Value Date Recorded Sex Assigned at Not on file Legal Sex Female 5:22 AM WASTE MACHINE OPERATOR Gender Identity Not on file Sexual Orientation Not on file documented as of this encounter Plan of Treatment Not on file documented as of this encounter Procedures Procedure Name Priority Date/Time Associated Diagnosis Comments URINALYSIS MICROSCOPY ONLY Routine 05/16/2007 4:37 PM WASTE MACHINE OPERATOR URINALYSIS W/REFLEX MICROSCOPIC Routine 05/16/2007 4:37 PM WASTE MACHINE OPERATOR CBC WITH DIFFERENTIAL Routine 05/16/2007 4:32 PM WASTE MACHINE OPERATOR LIPASE Routine 05/16/2007 4:32 PM WASTE MACHINE OPERATOR AMYLASE Routine 05/16/2007 4:32 PM WASTE MACHINE OPERATOR COMPREHENSIVE METABOLIC PANEL Routine 05/16/2007 4:32 PM WASTE MACHINE OPERATOR documented in this encounter Results * (ABNORMAL) URINALYSIS (05/16/2007 4:37 PM WASTE MACHINE OPERATOR) COLOR UA Yellow Straw INTERFACE SYSTEM CLARITY UA Clear Clear INTERFACE SYSTEM LEUKOCYTE ESTERASE UA NEGATIVE NEGATIVE INTERFACE SYSTEM NITRITE UA NEGATIVE NEGATIVE INTERFACE SYSTEM PH UA 7.5 5.0 - 9.0 INTERFACE SYSTEM PROTEIN UA NEGATIVE NEGATIVE INTERFACE SYSTEM GLUCOSE UA NEGATIVE NEGATIVE INTERFACE SYSTEM KETONES UA NEGATIVE NEGATIVE INTERFACE SYSTEM UROBILINOGEN UA 0.2 0.2 INTE RFACE SYSTEM BILIRUBIN UA NEGATIVE NEGATIVE INTERFA CE SYSTEM BLOOD UA NEGATIVE NEGATIVE INTERFACE SYSTEM SPECIFIC GRAVITY UA 1.015 <=1.005 INTERFACE SYSTEM MICRO EXAM Yes(A) No INTERFACE SYSTEM 05/16/2007 4:37 PM WASTE MACHINE OPERATOR us Thiago Mota MD URINE ORDERABLES Edited Performing Organization Address [facility] Phone Number INTERFACE SYSTEM Refer to clinic/hospital department * (ABNORMAL) URINALYSIS MICROSCOPY ONLY (05/16/2007 4:37 PM WASTE MACHINE OPERATOR) WBC URINE None Seen 0 - 2 INTERFACE SYSTEM RBC UA None Seen 0 - 2 INTERFACE SYSTEM HYALINE CAST None Seen 0 - 2 INTERFA CE SYSTEM BACTERIA UA Few(A) None Seen INTERFAC E SYSTEM 05/16/2007 4:37 PM WASTE MACHINE OPERATOR us Thiago Mota MD URINE ORDERABLES Edited Performing Organization Address [facility] Phone Number INTERFACE SYSTEM Refer to clinic/hospital department * LIPASE (05/16/2007 4:32 PM WASTE MACHINE OPERATOR) LIPASE 27 6 - 51 U/L INTERFACE SYSTEM 05/16/2007 4:32 PM WASTE MACHINE OPERATOR us Thiago Mota MD CHEMISTRY ORDERABLES Edited Performing Organization Address [facility] Phone Number INTERFACE SYSTEM Refer to clinic/hospital department * AMYLASE (05/16/2007 4:32 PM WASTE MACHINE OPERATOR) AMYLASE 48 20 - 104 U/L INTERFACE SYSTEM 05/16/2007 4:32 PM WASTE MACHINE OPERATOR us Thiago Mota MD CHEMISTRY ORDERABLES Edited Performing Organization Address [facility] Phone Number INTERFACE SYSTEM Refer to clinic/hospital department * (ABNORMAL) COMPREHENSIVE METABOLIC PANEL (05/16/2007 4:32 PM WASTE MACHINE OPERATOR) GLOBULIN (CALC) 3.0 2.4 - 3.9 g/dL INTERFACE SYSTEM ALBUMIN/GLOBULIN RATIO 1.4 1.0 - 2.3 INTERFACE SYSTEM GLUCOSE 86 70 - 110 mg/dL INTERFACE SYSTEM BUN 12 7 - 17 mg/dL INTERFACE SYSTEM CREATININE 0.9 0.7 - 1.2 mg/dL INTERFACE SYSTEM SODIUM 139 136 - 145 mEq/L INTERFACE SYSTEM POTASSIUM 4.7 3.5 - 5.0 mEq/L INTERFACE SYSTEM Comment:Specimen slightly he molyzed CHLORIDE 113(H) 95 - 110 mEq/L INTERFACE SYSTEM CO2 21(L) 22 - 32 mmol/l INTERFACE SYSTEM CALCIUM 9.4 8.4 - 10.5 mg/dL INTERFACE SYSTEM TOTAL PROTEIN 7.3 6.3 - 8.2 g/dL INTERFACE SYSTEM ALBUMIN 4.3 3.5 - 5.0 g/dL INTERFACE SYSTEM ALKALINE PHOSPHATASE 138(H) 25 - 100 U/L INTERFACE SYSTEM AST 44(H) 8 - 33 U/L INTERFACE SYSTEM ALT 47(H) 4 - 36 IU/L INTERFACE SYSTEM BILIRUBIN TOTAL 0.3 0.3 - 1.2 mg/dL INTERFACE SYSTEM ANION GAP 10 9 - 20 mEq/L INTERFACE SYSTEM OSMOLALITY, CALCULATED 286 275 - 295 mOsm/Kg INTERFACE SYSTEM 05/16/2007 4:32 PM WASTE MACHINE OPERATOR us Thiago Mota MD CHEMISTRY ORDERABLES Edited Performing Organization Address [facility] Co de Phone Number INTERFACE SYSTEM Refer to clinic/hospital department * (ABNORMAL) CBC WITH DIFFERENTIAL (05/16/2007 4:32 PM WASTE MACHINE OPERATOR) WBC 13.2(H) 4.5 - 11.0 K/ul INTERFACE SYSTEM RBC 4.29 4.20 - 5.40 Mil/ul INTERFACE SYSTEM HEMOGLOBIN 12.9 12.0 - 16.0 g/dL INTERFACE SYSTEM HEMATOCRIT 37.7 36.0 - 46.0 % INTERFACE SYSTEM MCV 87.9 84.0 - 103.0 Fl INTERFACE SYSTEM MCH 30.1 27.0 - 34.0 pg INTERFACE SYSTEM MCHC 34.2 30.0 - 35.0 g/dL INTERFACE SYSTEM RDW 13.7 11.0 - 14.5 % INTERFACE SYSTEM PLATELETS 261 140 - 440 K/ul INTERFACE SYSTEM MPV 10.7 8.9 - 12.8 Fl INTERFACE SYSTEM NEUTROPHILS 68.9 42.2 - 75.2 % INTERFACE SYSTEM LYMPHOCYTES 17.2(L) 24.0 - 44.0 % INTERFACE SYSTEM MONOCYTES 7.7 2.0 - 10.0 % INTERFACE SYSTEM EOSINOPHILS 5.5 0.0 - 7.0 % INTERFACE SYSTEM BASOPHILS 0.7 0.0 - 1.0 % INTERFACE SYSTEM NEUTROPHIL ABSOLUTE 9.1(H) 2.0 - 8.0 K/ul INTERFACE SYSTEM LYMPHOCYTE ABSOLUTE 2.3 1.2 - 4.0 K/ul INTERFACE SYSTEM MONOCYTE ABSOLUTE 1.0(H) 0.1 - 0.6 K/ul INTERFACE SYSTEM EOSINOPHIL ABSOLUTE 0.7 0.0 - 0.7 K/ul INTERFACE SYSTEM BASOPHILS ABSOLUTE 0.1 0.0 - 0.2 K/ul INTERFACE SYSTEM 05/16/2007 4:32 PM WASTE MACHINE OPERATOR Thiago Mota MD HEMATOLOGY ORDERABLES Edited INTERFACE SYSTEM Refer to clinic/hospital department documented in this encounter Visit Diagnoses Not on filedocumented in this encounter Additional Health Concerns Infection Onset Date Last Indicated Resolved Time 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
--- OUTSIDE RECORDS SUMMARY | 2025-02-09 23:00 | XMS_ITS | Encounter Summary ---
Author Organization [facility] Address [address] [place] [address] Care Team Providers Care Overhead Crane Inspector Name Role Phone Dara Tavera AMANDEEP Primary Care Provider Encounter Details Date Type Department Care Team (Latest Contact Info) Description 03/28/2008 Outpatient Historical [facility] [address] [place] [address] AMBULANCE, [facility] Unspecified Asthma; Unspecified Nonpsychotic Mental Disorder; Acquired Absence of Both Cervix and Uterus; Encounter for Long-Term (Current) Use of Other Medications; Personal History of Allergy to Penicillin; Personal History of Allergy to Sulfonamides; Personal History of Allergy to Narcotic Agent; Personal History of Allergy to Other Specified Medicinal Agents Social History Tobacco Use Types Packs/Day Years Used Date Smoking Tobacco: Never Assessed Comments Unknown Sex and Gender Information Value Date Recorded Sex Assigned at Not on file Legal Sex Female 5:22 AM COMMUNITY MARKETING COORDINATOR Gender Identity Not on file Sexual Orientation Not on file documented as of this encounter Plan of Treatment Not on file documented as of this encounter Visit Diagnoses Diagnosis Unspecified asthma(493.90) Unspecified asthma 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 Encounter for long-term (current) use of other medications Personal history of allergy to penicillin Personal history of allergy to sulfonamides Personal history of allergy to narcotic agent Personal history of allergy to other specified medicinal agents documented in this encounter Additional Health Concerns Infection Onset Date Last Indicated Resolved Time 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
--- OUTSIDE RECORDS SUMMARY | 2025-02-09 23:00 | XMS_ITS | Encounter Summary ---
Author Organization [facility] Address [address] [place] [address] Care Team Providers Care Policy Adviser Name Role Phone Dara Tavera Primary Care Provider Encounter Details Date Type Department Care Team (Latest Contact Info) Description 06/17/1997 Outpatient Historical [facility] Roney Arora MD [address] [facility] [address] [place] [address] Unspecified osteomyelitis, site unspecified (CMS/HCC) (Primary Dx) Social History Tobacco Use Types Packs/Day Years Used Date Smoking Tobacco: Never Assessed Comments Unknown Sex and Gender Information Value Date Recorded Sex Assigned at Not on file Legal Sex Female 5:22 AM SUPERINTENDENT HOUSE Gender Identity Not on file Sexual Orientation Not on file documented as of this encounter Plan of Treatment Not on file documented as of this encounter Visit Diagnoses Diagnosis Unspecified osteomyelitis, site unspecified (CMS/HCC)- Primary Unspecified osteomyelitis, site unspecified documented in this encounter Additional Health Concerns Infection Onset Date Last Indicated Resolved Time VRE Comment:Urine 10/30/13 Resolved 11/04/2013 11/04/2013 8 10:33 AM SUPERINTENDENT HOUSE R/O COVID-19 12/25/2019 12/25/2019 12/26/2019 2:46 PM CDT R/O COVID-19 05/09/2020 05/09/2020 05/09/2020 12:1 7 PM SUPERINTENDENT HOUSE documented as of this encounter Care Teams Policy Adviser Relationship Specialty Start Date End Date Dara Tavera FNP [address] [place] [phone] PCP - General NURSE PRACTITIONER 10/13/18 documented as of this encounter
--- OUTSIDE RECORDS SUMMARY | 2025-02-09 23:00 | XMS_ITS | Encounter Summary ---
Author Organization [facility] Address [address] [place] [address] Care Team Providers Care Yeast Supervisor Name Role Phone Dara Tavera Primary Care Provider [phone] Encounter Details Date Type Department Care Team (Late st Contact Info) Description 08/06/2007 [facility]patient [facility] [address] [place] [address] Tej Will MD [address] [address] Social History Tobacco Use Types Packs/Day Years Used Date Smoking Tobacco: Never Assessed Comments Unknown Sex and Gender Information Value Date Recorded Sex Assigned at Not on file Legal Sex Female 5:22 AM HELMET COVERER Gender Identity Not on file Sexual Orientation Not on file documented as of this encounter Plan of Treatment Not on file documented as of this encounter Visit Diagnoses Not on filedocumented in this encounter Additional Health Concerns Infection Onset Date Last Indicated Resolved Time VRE Comment:Urine 10/30/13 Resolved 11/04/2013 11/04/2013 8 10:33 AM HELMET COVERER R/O COVID-19 12/25/2019 12/25/2019 12/26/2019 2:46 PM CDT R/O COVID-19 05/09/2020 05/09/2020 05/09/2020 12:1 7 PM HELMET COVERER documented as of this encounter Care Teams Yeast Supervisor Relationship Specialty Start Date End Date Dara Tavera FNP [address] [place] [phone] PCP - General NURSE PRACTITIONER 10/13/18 documented as of this encounter
--- OUTSIDE RECORDS SUMMARY | 2025-02-09 23:00 | XMS_ITS | Encounter Summary ---
Author Organization [facility] Address [address] [place] [address] Care Team Providers Care Family Service Aide Name Role Phone Dara Tavera [facility] Primary Care Provider Encounter Details Date Type Department Care Team (Latest Contact Info) Description 05/10/2008 Outpatient Historical [facility] [address] [place] [address] AMBULANCE, [facility] Other Malaise and Fatigue; Other Speech Disturbance; Unspecified Abnormal Pupillary Function; Esophageal Reflux; Encounter for Long-Term (Current) Use of Other Medications Social History Tobacco Use Types Packs/Day Years Used Date Smoking Tobacco: Never Assessed Comments Unknown Sex and Gender Information Value Date Recorded Sex Assigned at Not on file Legal Sex Female 5:22 AM TECHNOLOGIST DEVELOPMENT Gender Identity Not on file Sexual Orientation Not on file documented as of this encounter Plan of Treatment Not on file documented as of this encounter Visit Diagnoses Diagnosis Other malaise and fatigue Other speech disturbance Abnormal pupillary function, unspecified Esophageal reflux Encounter for long-term (current) use of other medications documented in this encounter Additional Health Concerns Infection Onset Date Last Indicated Resolved Time VRE Comment:Urine 10/30/13 Resolved 11/04/2013 11/04/2013 8 10:33 AM TECHNOLOGIST DEVELOPMENT R/O COVID-19 12/25/2019 12/25/2019 12/26/2019 2:46 PM CDT R/O COVID-19 05/09/2020 05/09/2020 05/09/2020 12:1 7 PM TECHNOLOGIST DEVELOPMENT documented as of this encounter Care Teams Family Service Aide Relationship Specialty Start Date End Date Dara Tavera FNP [address] [place] [phone] PCP - General NURSE PRACTITIONER 10/13/18 documented as of this encounter
--- OUTSIDE RECORDS SUMMARY | 2025-02-09 23:00 | XMS_ITS | Encounter Summary ---
Author Organization [facility] Address [address] [place] [address] Care Team Providers Care Network Specialist Name Role Phone Dara Tavera Primary Care Provider Encounter Details Date Type Department Care Team (Latest Contact Info) Description 05/01/2007 Outpatient Historical [facility] Urology- [address]tr[address], 3[address] [place] [address] Mason West MD NO ADDRESS ON FILE Abdominal Pain, Unspecified Site (Primary Dx) Social History Tobacco Use Types Packs/Day Years Used Date Smoking Tobacco: Never Assessed Comments Unknown Sex and Gender Information Value Date Recorded Sex Assigned at Not on file Legal Sex Female 5:22 AM RAIL CAR UNLOADER Gender Identity Not on file Sexual Orientation Not on file documented as of this encounter Plan of Treatment Not on file documented as of this encounter Visit Diagnoses Diagnosis Abdominal pain, unspecified site- Primary documented in this encounter Additional Health Concerns Infection Onset Date Last Indicated Resolved Time VRE Comment:Urine 10/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
--- OUTSIDE RECORDS SUMMARY | 2025-02-09 23:00 | XMS_ITS | Encounter Summary ---
Author Organization [facility] Address [address] [place] [address] Care Team Providers Care Clinical Trials Specialist Name Role Phone Dara Tavera AMANDEEP Primary Care Provider Encounter Details Date Type Department Care Team (Latest Contact Info) Description 02/20/2008 Outpatient Historical [facility] [address] [place] [address] AMBULANCE, [facility] Hemorrhage of Rectum and Anus; Unspecified Tachycardia; Unspecified Asthma; Encounter for Long-Term (Current) Use of Other Medications; Need for Prophylactic Hormone Replacement Therapy (Postmenopausal); Personal History of Allergy to Other Specified Medicinal Agents; Personal History of Colonic Polyps; Personal History of Peptic Ulcer Disease Social History Tobacco Use Types Packs/Day Years Used Date Smoking Tobacco: Never Assessed Comments Unknown Sex and Gender Information Value Date Recorded Sex Assigned at Not on file Legal Sex Female 5:22 AM ROLL HANDLER Gender Identity Not on file Sexual Orientation Not on file documented as of this encounter Plan of Treatment Not on file documented as of this encounter Visit Diagnoses Diagnosis Hemorrhage of rectum and anus Tachycardia, unspecified Unspecified asthma(493.90) Unspecified asthma Encounter for long-term (current) use of other medications Need for prophylactic hormone replacement therapy (postmenopausal) Personal history of allergy to other specified medicinal agents Personal history of colonic polyps Personal history of peptic ulcer disease documented in this encounter Additional Health Concerns Infection Onset Date Last Indicated Resolved Time VRE Comment:Urine 10/30/13 Resolved 11/04/2013 11/04/2013 8 10:33 AM ROLL HANDLER R/O COVID-19 12/25/2019 12/25/2019 12/26/2019 2:46 PM CDT R/O COVID-19 05/09/2020 05/09/2020 05/09/2020 12:1 7 PM ROLL HANDLER documented as of this encounter Care Teams Clinical Trials Specialist Relationship Specialty Start Date End Date Dara Tavera FNP [address] [place] [address] PCP - General NURSE PRACTITIONER 10/13/18 documented as of this encounter
--- OUTSIDE RECORDS SUMMARY | 2025-02-09 23:00 | XMS_ITS | Encounter Summary ---
Author Organization [facility] Address [address] [place] [address] Care Team Providers Care Hardwood Sawyer Name Role Phone Dara Tavera Primary Care Provider Encounter Details Date Type Department Care Team (Late st Contact Info) Description 05/12/[address] [facility] Emergency Department [address] [place] [address] Isaac Kovacs PA [address] [place], [place] [id number] Neck Sprain and Strain (Primary Dx) Social History Tobacco Use Types Packs/Day Years Used Date Smoking Tobacco: Never Assessed Comments Unknown Sex and Gender Information Value Date Recorded Sex Assigned at Not on file Legal Sex Female 5:22 AM SUBASSEMBLY SUPERVISOR Gender Identity Not on file Sexual Orientation Not on file documented as of this encounter Plan of Treatment Not on file documented as of this encounter Visit Diagnoses Diagnosis Sprain of neck- Primary documented in this encounter Additional Health Concerns Infection Onset Date Last Indicated Resolved Time VRE Comment:Urine 10/30/13 Resolved 11/04/2013 11/04/2013 8 10:33 AM SUBASSEMBLY SUPERVISOR R/O COVID-19 12/25/2019 12/25/2019 12/26/2019 2:46 PM CDT R/O COVID-19 05/09/2020 05/09/2020 05/09/2020 12:1 7 PM SUBASSEMBLY SUPERVISOR documented as of this encounter Care Teams Hardwood Sawyer Relationship Specialty Start Date End Date Dara Tavera FNP [address] [place] [address] PCP - General NURSE PRACTITIONER 10/13/18 documented as of this encounter
--- OUTSIDE RECORDS SUMMARY | 2025-02-09 23:00 | XMS_ITS | Encounter Summary ---
Author Organization [facility] Address [address] [place] [address] Care Team Providers Care Ict Sales Representative Name Role Phone aDra Tavera COMMODITY LOAN CLERK Primary Care Provider [phone] Encounter Details Date Type Department Care Team (Late st Contact Info) Description 07/31/2007 Emergency [facility] Emergency Department [address] [place] [address] Ed, Physician NO ADDRESS ON FILE Silvia Mayers MD [address] [place] [address] Social History Tobacco Use Types Packs/Day Years Used Date Smoking Tobacco: Never Assessed Comments Unknown Sex and Gender Information Value Date Recorded Sex Assigned at Not on file Legal Sex Female 5:22 AM BASE LOADER Gender Identity Not on file Sexual Orientation Not on file documented as of this encounter Plan of Treatment Not on file documented as of this encounter Procedures Procedure Name Priority Date/Time Associated Diagnosis Comments CT ABDOMEN PELVIS W CONTRAST Routine 08/01/2007 2:49 AM BASE LOADER CBC WITH DIFFERENTIAL Stat 07/31/2007 11:25 PM BASE LOADER COMPREHENSIVE METABOLIC PANEL Stat 07/31/2007 11:25 PM BASE LOADER URINALYSIS MICROSCOPY ONLY Stat 07/31/2007 11:20 PM BASE LOADER URINALYSIS W/REFLEX MICROSCOPIC Stat 07/31/2007 11:20 PM BASE LOADER documented in this encounter Results * CT ABDOMEN PELVIS W CONTRAST (08/01/2007 2:49 AM BASE LOADER) Anatomical Region Laterality Modality Abdomen Other 08/01/2007 2:49 AM BASE LOADER Narrative 08/01/2007 2:[address] of the abdomen and pelvis was performed after 125 mL Optiray-240 contrast. The patient has lower abdominal pain. There is some partial volume loss in the lung bases. Multiple small calcified granulomas are noted. There is no pleural or pericardial effusion. The liver and spleen are homogeneous in density. There are clips in the gallbladder fossa. The kidneys demonstrate symmetric and homogeneous enhancement. Adrenal glands are normal in size and the pancreatic region is unremarkable. There is no focal bowel thickening or inflammatory changes. Postoperative clips are noted in the left pelvis. The patient is status post hysterectomy. There is some slight thickening of the anterior and inferior aspect of the left bladder wall but there are multiple clips in this region and this may simply reflect some postoperative changes. There is no adenopathy in the groin. No adenopathy in the mesentery or retroperitoneum is identified. Mild degenerative changes are noted in the spine. Impression: 1. No focal inflammatory changes are noted. Postoperative changes are noted as above. - Procedure Note JaimiechuckieRossy - 08/01/2007 CT of the abdomen and pelvis was performed after 125 mL Optiray-240contrast. The patient has lower abdominal pain. There is some partial volume loss in the lung bases. Multiple smallcalcified granulomas are noted. There is no pleural or pericardial effusion. The liver and spleen arehomogeneous in density. There are clips in the gallbladder fossa. The kidneys demonstrate symmetric andhomogeneous enhancement. Adrenal glands are normal in size and the pancreatic region isunremarkable. There is no focal bowel thickening or inflammatory changes. Postoperative clips are noted inthe left pelvis. The patient is status post hysterectomy. There is some slight thickening ofthe anterior and inferior aspect of the left bladder wall but there are multiple clips in thisregion and this may simply reflect some postoperative changes. There is no adenopathy in the groin.No adenopathy in the mesentery or retroperitoneum is identified. Mild degenerative changes arenoted in the spine. Impression: 1. No focal inflammatory changes are noted. Postoperative changes arenoted as above. - us Silvia Mayers MD CT ORDERABLES Final Result * (ABNORMAL) CBC WITH DIFFERENTIAL (07/31/2007 11:25 PM BASE LOADER) LYMPHOCYTE ABSOLUTE 2.8 1.2 - 4.0 K/ul [facility] MCV 87.2 84.0 - 103.0 Fl [facility] MPV 10.0 8.9 - 12.8 Fl [facility] BASOPHILS ABSOLUTE 0.1 0.0 - 0.2 K/ul [facility] BASOPHILS 0.6 0.0 - 1.0 % [facility] HEMOGLOBIN 13.2 12.0 - 16.0 g/dL [facility] RDW 14.8(H) 11.0 - 14.5 % [facility] MONOCYTE ABSOLUTE 0.7(H) 0.1 - 0.6 K/ul [facility] MONOCYTES 6.7 2.0 - 10.0 % [facility] WBC 9.7 4.5 - 11.0 K/ul [facility] MCH 29.1 27.0 - 34.0 pg [facility] NEUTROPHIL ABSOLUTE 6.1 2.0 - 8.0 K/ul [facility] NEUTROPHILS 62.8 42.2 - 75.2 % [facility] HEMATOCRIT 39.6 36.0 - 46.0 % [facility] EOSINOPHILS 1.4 0.0 - 7.0 % [facility] PLATELETS 272 140 - 440 K/ul [facility] EOSINOPHIL ABSOLUTE 0.1 0.0 - 0.7 K/ul [facility] RBC 4.54 4.20 - 5.40 Mil/ul [facility] LYMPHOCYTES 28.5 24.0 - 44.0 % [facility] MCHC 33.3 30.0 - 35.0 g/dL [facility] Blood specimen (specimen) 07/31/2007 11:25 PM BASE LOADER 07/31/2007 11:32 PM BASE LOADER us Silvia Mayers MD HEMATOLOGY ORDERABLES Final Res ult [facility] [address] [place] [address] * (ABNORMAL) COMPREHENSIVE METABOLIC PANEL (07/31/2007 11:25 PM BASE LOADER) BUN 20(H) 7 - 17 mg/dL [facility] CO2 19(L) 22 - 32 mmol/l [facility] ANION GAP 11 9 - 20 mEq/L [facility] AST 14 8 - 33 U/L [facility] POTASSIUM 3.6 3.5 - 5.0 mEq/L [facility] GLOBULIN (CALC) 3.0 2.4 - 3.9 g/dL [facility] ALBUMIN 4.3 3.5 - 5.0 g/dL [facility] CREATININE 0.9 0.7 - 1.2 mg/dL [facility] CALCIUM 9.4 8.4 - 10.5 mg/dL [facility] ALT 21 4 - 36 IU/L [facility] OSMOLALITY, CALCULATED 291 275 - 295 mOsm/Kg [facility] GLUCOSE 113(H) 70 - 110 mg/dL [facility] CHLORIDE 114(H) 95 - 110 mEq/L [facility] ALKALINE PHOSPHATASE 154(H) 25 - 100 U/L [facility] ALBUMIN/GLOBULIN RATIO 1.4 1.0 - 2.3 [facility] SODIUM 140 136 - 145 mEq/L [facility] TOTAL PROTEIN 7.3 6.3 - 8.2 g/dL [facility] BILIRUBIN TOTAL 0.2(L) 0.3 - 1.2 mg/dL [facility] Blood specimen (specimen) 07/31/2007 11:25 PM BASE LOADER 07/31/2007 11:32 PM BASE LOADER Result [facility] Silvia Mayers MD CHEMISTRY ORDERABLES Final Resu lt Performing Organization Address [facility] de Phone Number [facility] [address] [place] [address] * (ABNORMAL) URINALYSIS (07/31/2007 11:20 PM BASE LOADER) CLARITY UA Clear Clear [facility] SPECIFIC GRAVITY UA 1.031 <=1.005 [facility] GLUCOSE UA NEGATIVE NEGATIVE [facility] PH UA 6.0 5.0 - 9.0 [facility] BILIRUBIN UA NEGATIVE NEGATIVE [facility] LEUKOCYTE ESTERASE UA NEGATIVE NEGATIVE [facility] KETONES UA NEGATIVE NEGATIVE [facility] MICRO EXAM Yes(A) No [facility] COLOR UA Yellow Straw [facility] PROTEIN UA NEGATIVE NEGATIVE [facility] BLOOD UA NEGATIVE NEGATIVE [facility] NITRITE UA NEGATIVE NEGATIVE [facility] UROBILINOGEN UA 0.2 0.2 [facility] Urine, clean catch 07/31/2007 11:20 PM BASE LOADER 07/31/2007 11:23 PM BASE LOADER Silvia Mayers MD URINE ORDERABLES Final Result Performing Organization Address [facility] de Phone Number [facility] [address] [place] [address] * URINALYSIS MICROSCOPY ONLY (07/31/2007 11:20 PM BASE LOADER) HYALINE CAST None Seen 0 - 2 [facility] WBC URINE None Seen 0 - 2 [facility] BACTERIA UA None Seen None Seen 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
--- OUTSIDE RECORDS SUMMARY | 2025-02-09 23:00 | XMS_ITS | Encounter Summary ---
Author Organization [facility] Address [address] [place] [address] Care Team Providers Care Nurses Medical Assistants Phlebotomists Name Role Phone Dara Tavera AMANDEEP Primary Care Provider Encounter Details Date Type Department Care Team (Late st Contact Info) Description 08/05/2007 Emergency [facility] Emergency Department [address] [place] [address] Ed, Physician NO ADDRESS ON FILE Amaury De La Rosa MD NO ADDRESS ON FILE Headache; Unspecified Chest Pain; Disturbance of Skin Sensation; Other Specified Cardiac Dysrhythmias; Unspecified Asthma; Schizoaffective Disorder, Unspecified Condition (CMS/HCC); Tobacco Use Disorder; Encounter for Long-Term (Current) Use of Other Medications; Acquired Absence of Organ, Genital Organs; Other Acquired Absence of Organ; Personal History of Allergy to Penicillin; Personal History of Allergy to Other Specified Medicinal Agents; Personal History of Allergy to Narcotic Agent; Personal History of Allergy to Analgesic Agent Social History Tobacco Use Types Packs/Day Years Used Date Smoking Tobacco: Never Assessed Comments Unknown Sex and Gender Information Value Date Recorded Sex Assigned at Not on file Legal Sex Female 5:22 AM COSMETICS SUPERVISOR Gender Identity Not on file Sexual Orientation Not on file documented as of this encounter Plan of Treatment Not on file documented as of this encounter Procedures Procedure Name Priority Date/Time Associated Diagnosis Comments CT HEAD WO CONTRAST Routine 08/05/2007 6 :19 PM COSMETICS SUPERVISOR XR CHEST PA AND LATERAL 2 VW Routine 08/05/2007 5:14 PM COSMETICS SUPERVISOR CBC WITH DIFFERENTIAL Stat 08/05/2007 4:15 PM COSMETICS SUPERVISOR BASIC METABOLIC PANEL Stat 08/05/2007 4:15 PM COSMETICS SUPERVISOR documented in this encounter Results * CT HEAD WO CONTRAST (08/05/2007 6:19 PM COSMETICS SUPERVISOR) Anatomical Region Laterality Modality Head Other 08/05/2007 6:19 PM COSMETICS SUPERVISOR Narrative 08/05/2007 6:33 PM COSMETICS SUPERVISOR The posterior fossa is grossly normal. The ventricles are normal in size, shape, and in position. No regions of abnormal low or high attenuation, masses, or extra-axial fluid collections are present. The skull base and sinuses included are normal in appearance. Impression: Normal noncontrast study. - Procedure Note Benedicto Greene - 08/05/2007 The posterior fossa is grossly normal. The ventricles are normal insize, shape, and in position. No regions of abnormal low or high attenuation, masses, orextra-axial fluid collections are present. The skull base and sinuses included are normal in appearance. Impression: Normal noncontrast study. - Hemant Bran MD CT ORDERABLES Final Resu lt * XR CHEST PA AND LATERAL (08/05/2007 5:14 PM COSMETICS SUPERVISOR) Anatomical Region Laterality Modality Chest Other 08/05/2007 5:14 PM COSMETICS SUPERVISOR Narrative 08/05/2007 7:38 PM COSMETICS SUPERVISOR The heart and mediastinum are normal in size and contour. The lungs are essentially clear without evidence of infiltrates, nodules, or effusions. The bones and other structures visualized are largely unremarkable. Interstitial disease present on June 18 has apparently resolved. Impression: No active disease. - Procedure Note Benedicto Greene - 08/05/2007 The heart and mediastinum are normal in size and contour. The lungs areessentially clear without evidence of infiltrates, nodules, or effusions. The bones and otherstructures visualized are largely unremarkable. Interstitial disease present on June 18 hasapparently resolved. Impression: No active disease. - Amaury De La Rosa MD DIAGNOSTIC IMAGING ORDERABLES Fi nal Result * (ABNORMAL) CBC WITH DIFFERENTIAL (08/05/2007 4:15 PM COSMETICS SUPERVISOR) EOSINOPHIL ABSOLUTE 0.3 0.0 - 0.7 K/ul [facility] RBC 4.46 4.20 - 5.40 Mil/ul [facility] LYMPHOCYTES 31.5 24.0 - 44.0 % [facility] MCHC 33.2 30.0 - 35.0 g/dL [facility] LYMPHOCYTE ABSOLUTE 2.6 1.2 - 4.0 K/ul [facility] MCV 87.0 84.0 - 103.0 Fl [facility] MPV 9.8 8.9 - 12.8 Fl [facility] BASOPHILS ABSOLUTE 0.1 0.0 - 0.2 K/ul [facility] BASOPHILS 0.6 0.0 - 1.0 % [facility] HEMOGLOBIN 12.9 12.0 - 16.0 g/dL [facility] RDW 14.6(H) 11.0 - 14.5 % [facility] MONOCYTE ABSOLUTE 0.7(H) 0.1 - 0.6 K/ul [facility] MONOCYTES 7.7 2.0 - 10.0 % [facility] WBC 8.4 4.5 - 11.0 K/ul [facility] MCH 28.9 27.0 - 34.0 pg [facility] NEUTROPHIL ABSOLUTE 4.8 2.0 - 8.0 K/ul [facility] NEUTROPHILS 56.7 42.2 - 75.2 % [facility] HEMATOCRIT 38.8 36.0 - 46.0 % [facility] EOSINOPHILS 3.5 0.0 - 7.0 % [facility] PLATELETS 232 140 - 440 K/ul [facility] Blood specimen (specimen) 08/05/2007 4:15 PM COSMETICS SUPERVISOR 08/05/2007 4:26 PM COSMETICS SUPERVISOR Hemant Bran MD HEMATOLOGY ORDERABLES Destiny l Result Performing Organization Address [facility] de Phone Number [facility] [address] [place] [address] * (ABNORMAL) BASIC METABOLIC PANEL (08/05/2007 4:15 PM COSMETICS SUPERVISOR) ANION GAP 9 9 - 20 mEq/L [facility] BUN 14 7 - 17 mg/dL [facility] CO2 19(L) 22 - 32 mmol/l [facility] OSMOLALITY, CALCULATED 290 275 - 295 mOsm/Kg [facility] POTASSIUM 3.9 3.5 - 5.0 mEq/L [facility] CREATININE 0.9 0.7 - 1.2 mg/dL [facility] CALCIUM 9.4 8.4 - 10.5 mg/dL [facility] GLUCOSE 105 70 - 110 mg/dL [facility] CHLORIDE 117(H) 95 - 110 mEq/L [facility] SODIUM 141 136 - 145 mEq/L [facility] Blood specimen (specimen) 08/05/2007 4:15 PM COSMETICS SUPERVISOR 08/05/2007 4:26 PM COSMETICS SUPERVISOR Hemant Bran MD CHEMISTRY ORDERABLES Final Result Performing Organization Address [facility] de Phone Number [facility] [address] [place] [address] documented in this encounter Visit Diagnoses Diagnosis Headache(784.0) Headache Chest pain, unspecified Disturbance of skin sensation Other specified cardiac dysrhythmias(427.89) Other specified cardiac dysrhythmias Unspecified asthma(493.90) Unspecified asthma Schizoaffective disorder, unspecified condition (CMS/HCC) Schizoaffective disorder, unspecified condition Tobacco use disorder Encounter for long-term (current) use of other medications Acquired absence of organ, genital organs Other acquired absence of organ Personal history of allergy to penicillin Personal history of allergy to other specified medicinal agents Personal history of allergy to narcotic agent Personal history of allergy to analgesic agent documented in this encounter Additional Health Concerns Infection Onset Date Last Indicated Resolved Time 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
--- OUTSIDE RECORDS SUMMARY | 2025-02-09 23:00 | XMS_ITS | Encounter Summary ---
Author Organization [facility] Address [address] [place] [address] Care Team Providers Care Pipelines Manager Name Role Phone Dara Tavera AMANDEEP Primary Care Provider Encounter Details Date Type Department Care Team (Late st Contact Info) Description 04/30/2007 Outpatient [facility] [address] [place] [address] AMBULANCE, [facility] Social History Tobacco Use Types Packs/Day Years Used Date Smoking Tobacco: Never Assessed Comments Unknown Sex and Gender Information Value Date Recorded Sex Assigned at Not on file Legal Sex Female 5:22 AM COMMERCIAL COLLECTIONS DRIVER Gender Identity Not on file Sexual Orientation Not on file documented as of this encounter Plan of Treatment Not on file documented as of this encounter Procedures Procedure Name Priority Date/Time Associated Diagnosis Comments CT ABDOMEN PELVIS W CONTRAST Routine 04/30/2007 8:07 PM COMMERCIAL COLLECTIONS DRIVER documented in this encounter Results * CT ABDOMEN PELVIS W CONTRAST (04/30/2007 8:07 PM COMMERCIAL COLLECTIONS DRIVER) Anatomical Region Laterality Modality Abdomen Other 04/30/2007 8:07 PM COMMERCIAL COLLECTIONS DRIVER Narrative 04/30/2007 8:07 PM COMMERCIAL COLLECTIONS DRIVER CT Scan Abdomen and Pelvis with contrast 04/30/2007: History: Low abdominal pain. High white blood cell count. Procedure: A routine CT scan of the Abdomen and Pelvis was obtained with oral contrast and 100 mL ofOptiray-240 IV contrast. Findings: 1. There are radiopaque densities which are probably surgical clips in the inferior pelvis and superiorto the left superior pubic ramus. 2. There is a fairly large amount of stool in nondistended colon. The colon is unremarkable. Accordingto the history, there has been an appendectomy. The small bowel is not distended. There is no smallbowel malrotation. The stomach appears normal. 3. There is focal interstitial thickening which may be adjacent to a blood vessel in the subcutaneousanterior abdomen inferior to left side of the umbilicus. It appears more prominent than on04/27/2007 CT scan. It may be due to a previous incision or a recent abdominal injection. An area ofcontusion such is due to hemorrhage from a subcutaneous vessel is possible. 4. There is evidence of a previous incision across the lower anterior pelvis. 5. There is minimal linear atelectasis or scarring in the left lung base. The right lung base is clear. 6. There has been a previous cholecystectomy. 7. The liver, pancreas, adrenals, and kidneys are normal. The ureters are not distended and there is noureteral stone. There is no free fluid, free air, or lymphadenopathy. 8. The spleen has a few tiny calcifications consistent with old granulomatous disease. 9. The T11 and T12 vertebral bodies are fused. Impression: Fairly large amount of stool within nondistended colon. Focal interstitial thickeningadjacent to a blood vessel in the subcutaneous anterior abdomen inferior to left side of theumbilicus. This is probably of no clinical significance. It could be a small subcutaneoushemorrhage or contusion. Previous incision across the lower pelvis. Surgical clips inferior to theurinary bladder and superior to the left superior pubic ramus. Previous cholecystectomy. Minimalold granulomatous disease. T11 and T12 vertebral body fusion. Previous hysterectomy. Resolution ofthe previously seen, 04/27/2007, hemorrhage in the dependent portion of the urinary bladder. Nobladder mass. - Dictated By: Bhumi Long M.D. Electronically Signed By: Bhumi Long M.D. Date Signed: 04/30/07 Procedure Note 05/10/2009 CT Scan Abdomen and Pelvis with contrast 04/30/2007: History: Low abdominal pain. High white blood cell count. Procedure: A routine CT scan of the Abdomen and Pelvis was obtained with oralcontrast and 100 mL ofOptiray-240 IV contrast. Findings: 1. There are radiopaque densities which are probably surgical clips in theinferior pelvis and superiorto the left superior pubic ramus. 2. There is a fairly large amount of stool in nondistended colon. Thecolon is unremarkable. Accordingto the history, there has been an appendectomy. The small bowel is notdistended. There is no smallbowel malrotation. The stomach appears normal. 3. There is focal interstitial thickening which may be adjacent to a bloodvessel in the subcutaneousanterior abdomen inferior to left side of the umbilicus. Itappears more prominent than on04/27/2007 CT scan. It may be due to a previous incision or a recentabdominal injection. An area ofcontusion such is due to hemorrhage from a subcutaneous vessel ispossible. 4. There is evidence of a previous incision across the lower anteriorpelvis. 5. There is minimal linear atelectasis or scarring in the left lung base.The right lung base is clear. 6. There has been a previous cholecystectomy. 7. The liver, pancreas, adrenals, and kidneys are normal. The ureters arenot distended and there is noureteral stone. There is no free fluid, free air, or lymphadenopathy. 8. The spleen has a few tiny calcifications consistent with oldgranulomatous disease. 9. The T11 and T12 vertebral bodies are fused. Impression: Fairly large amount of stool within nondistended colon. Focal interstitialthickeningadjacent to a blood vessel in the subcutaneous anterior abdomen inferior to left side oftheumbilicus. This is probably of no clinical significance. It could be a small subcutaneoushemorrhage orcontusion. Previous incision across the lower pelvis. Surgical clips inferior to theurinary bladder andsuperior to the left superior pubic ramus. Previous cholecystectomy. Minimalold granulomatous disease. T11 andT12 vertebral body fusion. Previous hysterectomy. Resolution ofthe previously seen, 04/27/2007,hemorrhage in the dependent portion of the urinary bladder. Nobladder mass. - Dictated By: Bhumi Long M.D. Electronically Signed By: Bhumi Long M.D. 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
--- OUTSIDE RECORDS SUMMARY | 2025-02-09 23:00 | XMS_ITS | Encounter Summary ---
Author Organization [facility] Address [address] [place]: [place] [address] Care Team Providers Care Adult Services Librarian Name Role Phone Dara Tavera Primary Care Provider Encounter Details Date Type Department Care Team ([facility] Contact Info) Description 01/17/2001 Outpatient Historical Non-Staff, Physician NO ADDRESS ON FILE Social History Tobacco Use Types Packs/Day Years Used Date Smoking Tobacco: Never Assessed Comments Unknown Sex and Gender Information Value Date Recorded Sex Assigned at Not on file Legal Sex Female 5:22 AM FOUNDER AND PRESIDENT Gender Identity Not on file Sexual Orientation Not on file documented as of this encounter Plan of Treatment Not on file documented as of this encounter Visit Diagnoses Not on filedocumented in this encounter Additional Health Concerns Infection Onset Date Last Indicated Resolved Time 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
--- OUTSIDE RECORDS SUMMARY | 2025-02-09 23:00 | XMS_ITS | Encounter Summary ---
Author Organization [facility] Address [address] [place] [address] Care Team Providers Care Fish Pitcher Name Role Phone Dara Tavera AMANDEEP Primary Care Provider Encounter Details Date Type Department Care Team (Latest Contact Info) Description 04/22/2008 Outpatient Historical [facility] [address] [place] [address] [address], [facility] Aphasia; Unspecified Tachycardia; Chronic Airway Obstruction, not Elsewhere Classified (CMS/HCC); Other Convulsions (CMS/HCC); Bipolar Disorder, Unspecified (CMS/HCC); Encounter for Long-Term (Current) Use of Other Medications; Personal History of Allergy to Other Specified Medicinal Agents Social History Tobacco Use Types Packs/Day Years Used Date Smoking Tobacco: Never Assessed Comments Unknown Sex and Gender Information Value Date Recorded Sex Assigned at Not on file Legal Sex Female 5:22 AM TRACK MANAGER Gender Identity Not on file Sexual Orientation Not on file documented as of this encounter Plan of Treatment Not on file documented as of this encounter Visit Diagnoses Diagnosis Aphasia Tachycardia, unspecified Chronic airway obstruction, not elsewhere classified (CMS/HCC) Chronic airway obstruction, not elsewhere classified Other convulsions Bipolar disorder, unspecified (CMS/HCC) Bipolar disorder, unspecified Encounter for long-term (current) use of other medications Personal history of allergy to other specified medicinal agents documented in this encounter Additional Health Concerns Infection Onset Date Last Indicated Resolved Time 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
--- OUTSIDE RECORDS SUMMARY | 2025-02-09 23:00 | XMS_ITS | Encounter Summary ---
Author Organization [facility] Address [address] [place] [address] Care Team Providers Care Basting Cleaner Name Role Phone Dara Tavera AMANDEEP Primary Care Provider [phone] Encounter Details Date Type Department Care Team (Latest Contact Info) Description 02/28/2008 Outpatient Historical [facility] [address] [place] [address] AMBULANCE, [facility] Blood in Stool; Nausea Alone; Unspecified Asthma; Posttraumatic Stress Disorder; Tobacco Use Disorder; Unspecified Epilepsy without Mention of Intractable Epilepsy (CMS/HCC); Encounter for Long-Term (Current) Use of Other Medications; Personal History of Allergy to Penicillin; Personal History of Allergy to Sulfonamides; Personal History of Allergy to Other Specified Medicinal Agents Social History Tobacco Use Types Packs/Day Years Used Date Smoking Tobacco: Never Assessed Comments Unknown Sex and Gender Information Value Date Recorded Sex Assigned at Not on file Legal Sex Female 5:22 AM CD MIXER Gender Identity Not on file Sexual Orientation Not on file documented as of this encounter Plan of Treatment Not on file documented as of this encounter Visit Diagnoses Diagnosis Blood in stool Nausea alone Unspecified asthma(493.90) Unspecified asthma Posttraumatic stress disorder Tobacco use disorder Unspecified epilepsy without mention of intractable epilepsy (CMS/HCC) Unspecified epilepsy without mention of intractable epilepsy Encounter for long-term (current) use of other medications Personal history of allergy to penicillin Personal history of allergy to sulfonamides Personal history of allergy to other specified medicinal agents documented in this encounter Additional Health Concerns Infection Onset Date Last Indicated Resolved Time VRE Comment:Urine 10/30/13 Resolved 11/04/2013 11/04/201307/26/201 8 10:33 AM CD MIXER R/O COVID-19 12/25/2019 12/25/2019 12/26/2019 2:46 PM CDT R/O COVID-19 05/09/2020 05/09/2020 05/09/2020 12:1 7 PM CD MIXER documented as of this encounter Care Teams Basting Cleaner Relationship Specialty Start Date End Date Dara Tavera FNP [address] [place] [phone] PCP - General NURSE PRACTITIONER 10/13/18 documented as of this encounter
--- OUTSIDE RECORDS SUMMARY | 2025-02-09 23:00 | XMS_ITS | Encounter Summary ---
Author Organization [facility] Address [address] [place] [address] Care Team Providers Care Offset Press Operator Name Role Phone Dara Tavera AMANDEEP Primary Care Provider Encounter Details Date Type Department Care Team (Latest Contact Info) Description 05/11/2008 Outpatient Historical [facility] [address] [place] [address] AMBULANCE, [facility] Esophageal Reflux; Personal History of Allergy to Penicillin; Personal History of Allergy to Sulfonamides; Personal History of Allergy to Other Anti-Infective Agent; Personal History of Allergy to Narcotic Agent; Personal History of Allergy to Other Specified Medicinal Agents Social History Tobacco Use Types Packs/Day Years Used Date Smoking Tobacco: Never Assessed Comments Unknown Sex and Gender Information Value Date Recorded Sex Assigned at Not on file Legal Sex Female 5:22 AM MEDICAL PRACTITIONERS Gender Identity Not on file Sexual Orientation Not on file documented as of this encounter Plan of Treatment Not on file documented as of this encounter Visit Diagnoses Diagnosis Esophageal reflux Personal history of allergy to penicillin Personal history of allergy to sulfonamides Personal history of allergy to other anti-infective agent Personal history of allergy to narcotic agent Personal history of allergy to other specified medicinal agents documented in this encounter Additional Health Concerns Infection Onset Date Last Indicated Resolved Time VRE Comment:Urine 10/30/13 Resolved 11/04/2013 11/04/2013 8 10:33 AM MEDICAL PRACTITIONERS R/O COVID-19 12/25/2019 12/25/2019 12/26/2019 2:46 PM CDT R/O COVID-19 05/09/2020 05/09/2020 05/09/2020 12:1 7 PM MEDICAL PRACTITIONERS documented as of this encounter Care Teams Offset Press Operator Relationship Specialty Start Date End Date Dara Tavera FNP [address] [place] [phone] PCP - General NURSE PRACTITIONER 10/13/18 documented as of this encounter
--- OUTSIDE RECORDS SUMMARY | 2025-02-09 23:00 | XMS_ITS | Encounter Summary ---
Author Organization [facility] Address [address] [place] [address] Care Team Providers Care Brick Molder Hand Name Role Phone Dara Tavera Primary Care Provider Encounter Details Date Type Department Care Team (Late st Contact Info) Description 08/13/2007 [facility]patient [facility] [address] [place] [address] Tej Will MD [address] [address] Social History Tobacco Use Types Packs/Day Years Used Date Smoking Tobacco: Never Assessed Comments Unknown Sex and Gender Information Value Date Recorded Sex Assigned at Not on file Legal Sex Female 5:22 AM PLUMBING TECHNICIAN Gender Identity Not on file Sexual Orientation Not on file documented as of this encounter Plan of Treatment Not on file documented as of this encounter Visit Diagnoses Not on filedocumented in this encounter Additional Health Concerns Infection Onset Date Last Indicated Resolved Time VRE Comment:Urine 10/30/13 Resolved 11/04/2013 11/04/2013 8 10:33 AM PLUMBING TECHNICIAN R/O COVID-19 12/25/2019 12/25/2019 12/26/2019 2:46 PM CDT R/O COVID-19 05/09/2020 05/09/2020 05/09/2020 12:1 7 PM PLUMBING TECHNICIAN documented as of this encounter Care Teams Brick Molder Hand Relationship Specialty Start Date End Date Dara Tavera FNP [address] [place] [phone] PCP - General NURSE PRACTITIONER 10/13/18 documented as of this encounter
--- OUTSIDE RECORDS SUMMARY | 2025-02-09 23:00 | XMS_ITS | Encounter Summary ---
Author Organization [facility] Address [address] [place] [address] Care Team Providers Care Athletic Shoe Designer Name Role Phone Dara Tavera Primary Care Provider [phone] Encounter Details Date Type Department Care Team (Late st Contact Info) Description 04/07/2008 Outpatient Historical [facility] [address] [place] [address] AMBULANCE, [facility] Social History Tobacco Use Types Packs/Day Years Used Date Smoking Tobacco: Never Assessed Comments Unknown Sex and Gender Information Value Date Recorded Sex Assigned at Not on file Legal Sex Female 5:22 AM OLERICULTURIST Gender Identity Not on file Sexual Orientation Not on file documented as of this encounter Plan of Treatment Not on file documented as of this encounter Visit Diagnoses Not on filedocumented in this encounter Additional Health Concerns Infection Onset Date Last Indicated Resolved Time VRE Comment:Urine 10/30/13 Resolved 11/04/2013 11/04/2013 8 10:33 AM OLERICULTURIST R/O COVID-19 12/25/2019 12/25/2019 12/26/2019 2:46 PM CDT R/O COVID-19 05/09/2020 05/09/2020 05/09/2020 12:1 7 PM OLERICULTURIST documented as of this encounter Care Teams Athletic Shoe Designer Relationship Specialty Start Date End Date Dara Tavera FNP [address] [place] [phone] PCP - General NURSE PRACTITIONER 10/13/18 documented as of this encounter
--- OUTSIDE RECORDS SUMMARY | 2025-02-09 23:00 | XMS_ITS | Encounter Summary ---
Author Organization [facility] Address [address] [place] [address] Care Team Providers Care Oil Refinery Operator Name Role Phone Dara Tavera AMANEDEP Primary Care Provider Encounter Details Date Type Department Care Team (Late st Contact Info) Description 05/14/2007 Emergency [facility] Emergency Department [address] [place] [address] Kurt Nassar MD [address] [place] [address] Abdominal Pain, Unspecified Site (Primary Dx) Social History Tobacco Use Types Packs/Day Years Used Date Smoking Tobacco: Never Assessed Comments Unknown Sex and Gender Information Value Date Recorded Sex Assigned at Not on file Legal Sex Female 5:22 AM HOSE BUILDER Gender Identity Not on file Sexual Orientation Not on file documented as of this encounter Plan of Treatment Not on file documented as of this encounter Procedures Procedure Name Priority Date/Time Associated Diagnosis Comments URINALYSIS W/REFLEX MICROSCOPIC Routine 05/14/2007 12:20 PM HOSE BUILDER CBC WITH DIFFERENTIAL Routine 05/14/2007 11:37 AM HOSE BUILDER LIPASE Routine 05/14/2007 11:37 AM HOSE BUILDER AMYLASE Routine 05/14/2007 11:37 AM HOSE BUILDER COMPREHENSIVE METABOLIC PANEL Routine 05/14/2007 11:37 AM HOSE BUILDER documented in this encounter Results * URINALYSIS (05/14/2007 12:20 PM HOSE BUILDER) COLOR UA Yellow Straw INTERFACE SYSTEM CLARITY [...] NEGATIVE NEGATIVE INTERFACE SYSTEM SPECIFIC GRAVITY UA 1.010 <=1.005 INTERFACE SYSTEM MICRO EXAM No No INTERFACE SYSTEM 05/14/2007 12:2 0 PM HOSE BUILDER Kurt Nassar MD URINE ORDERABLES Edited Performing Organization Address City/[facility] Co fl Phone Number INTERFACE SYSTEM Refer to clinic/hospital department * AMYLASE (05/14/2007 11:37 AM HOSE BUILDER) AMYLASE 46 20 - 104 U/L INTERFACE SYSTEM 05/14/2007 11:3 7 AM HOSE BUILDER Result [facility] Kurt Nassar MD CHEMISTRY ORDERABLES Edite d Performing Organization Address City/[facility] Co de Phone Number INTERFACE SYSTEM Refer to clinic/hospital department * LIPASE (05/14/2007 11:37 AM HOSE BUILDER) LIPASE 30 6 - 51 U/L INTERFACE SYSTEM 05/14/2007 11:3 7 AM HOSE BUILDER Kurt Nassar MD CHEMISTRY ORDERABLES Edite d Performing Organization Address City/[facility] Co de Phone Number INTERFACE SYSTEM Refer to clinic/hospital department * (ABNORMAL) COMPREHENSIVE METABOLIC PANEL (05/14/2007 11:37 AM HOSE BUILDER) GLUCOSE 104 70 - 110 mg/dL INTERFACE SYSTEM BUN 16 7 - 17 mg/dL INTERFACE SYSTEM CREATININE 0.9 0.7 - 1.2 mg/dL INTERFACE SYSTEM SODIUM 139 136 - 145 mEq/L INTERFACE SYSTEM POTASSIUM 3.8 3.5 - 5.0 mEq/L INTERFACE SYSTEM CHLORIDE 113(H) 95 - 110 mEq/L INTERFACE SYSTEM CO2 22 22 - 32 mmol/l INTERFACE SYSTEM CALCIUM 9.6 8.4 - 10.5 mg/dL INTERFACE SYSTEM TOTAL PROTEIN 6.7 6.3 - 8.2 g/dL INTERFACE SYSTEM ALBUMIN 4.3 3.5 - 5.0 g/dL INTERFACE SYSTEM ALKALINE PHOSPHATASE 134(H) 25 - 100 U/L INTERFACE SYSTEM AST 19 8 - 33 U/L INTERFACE SYSTEM ALT 23 4 - 36 IU/L INTERFACE SYSTEM BILIRUBIN TOTAL 0.1(L) 0.3 - 1.2 mg/dL INTERFACE SYSTEM GLOBULIN (CALC) 2.4 2.4 - 3.9 g/dL INTERFACE SYSTEM ALBUMIN/GLOBULIN RATIO 1.8 1.0 - 2.3 INTERFACE SYSTEM ANION GAP 8(L) 9 - 20 mEq/L INTERFACE SYSTEM OSMOLALITY, CALCULATED 287 275 - 295 mOsm/Kg INTERFACE SYSTEM 05/14/2007 11:3 7 AM HOSE BUILDER us Kurt Nassar MD CHEMISTRY ORDERABLES Edite d INTERFACE SYSTEM Refer to clinic/hospital department * (ABNORMAL) CBC WITH DIFFERENTIAL (05/14/2007 11:37 AM HOSE BUILDER) WBC 12.6(H) 4.5 - 11.0 K/ul INTERFACE SYSTEM RBC 4.35 4.20 - 5.40 Mil/ul INTERFACE SYSTEM HEMOGLOBIN 13.0 12.0 - 16.0 g/dL INTERFACE SYSTEM HEMATOCRIT 38.0 36.0 - 46.0 % INTERFACE SYSTEM MCV 87.4 84.0 - 103.0 Fl INTERFACE SYSTEM MCH 29.9 27.0 - 34.0 pg INTERFACE SYSTEM MCHC 34.2 30.0 - 35.0 g/dL INTERFACE SYSTEM RDW 13.4 11.0 - 14.5 % INTERFACE SYSTEM PLATELETS 267 140 - 440 K/ul INTERFACE SYSTEM MPV 10.0 8.9 - 12.8 Fl INTERFACE SYSTEM NEUTROPHILS 72.1 42.2 - 75.2 % INTERFACE SYSTEM LYMPHOCYTES 18.0(L) 24.0 - 44.0 % INTERFACE SYSTEM MONOCYTES 5.2 2.0 - 10.0 % INTERFACE SYSTEM EOSINOPHILS 4.1 0.0 - 7.0 % INTERFACE SYSTEM BASOPHILS 0.6 0.0 - 1.0 % INTERFACE SYSTEM NEUTROPHIL ABSOLUTE 9.1(H) 2.0 - 8.0 K/ul INTERFACE SYSTEM LYMPHOCYTE ABSOLUTE 2.3 1.2 - 4.0 K/ul INTERFACE SYSTEM MONOCYTE ABSOLUTE 0.7(H) 0.1 - 0.6 K/ul INTERFACE SYSTEM EOSINOPHIL ABSOLUTE 0.5 0.0 - 0.7 K/ul INTERFACE SYSTEM BASOPHILS ABSOLUTE 0.1 0.0 - 0.2 K/ul INTERFACE SYSTEM 05/14/2007 11:3 7 AM HOSE BUILDER us Kurt Nassar MD HEMATOLOGY ORDERABLES Edit ed INTERFACE SYSTEM Refer to clinic/hospital department documented in this encounter Visit Diagnoses Diagnosis Abdominal pain, unspecified site- Primary documented in this encounter Additional Health Concerns Infection Onset Date Last Indicated Resolved Time VRE Comment:Urine 10/30/13 Resolved 11/04/2013 11/04/2013 10:33 AM HOSE BUILDER R/O COVID-19 12/25/2019 12/25/2019 12/26/2019 2:46 PM CDT R/O COVID-19 05/09/2020 05/09/2020 05/09/2020 12:1 7 PM HOSE BUILDER documented as of this encounter Care Teams Oil Refinery Operator Relationship Specialty Start Date End Date Dara Tavera FNP [address] [place] [phone] PCP - General NURSE PRACTITIONER 10/13/18 documented as of this encounter
--- OUTSIDE RECORDS SUMMARY | 2025-02-09 23:00 | XMS_ITS | Encounter Summary ---
Author Organization [facility] Address [address] Bello: [place] [address] Care Team Providers Care Ram Car Operator Name Role Phone Dara Tavera Primary Care Provider [phone] Encounter Details Date Type Department Care Team ([facility] st Contact Info) Description 11/12/1999 Outpatient Historical [place], [place], [address]th [place] [id number] Social History Tobacco Use Types Packs/Day Years Used Date Smoking Tobacco: Never Assessed Comments Unknown Sex and Gender Information Value Date Recorded Sex Assigned at Not on file Legal Sex Female 5:22 AM BEAN SNIPPER Gender Identity Not on file Sexual Orientation Not on file documented as of this encounter Plan of Treatment Not on file documented as of this encounter Visit Diagnoses Not on filedocumented in this encounter Additional Health Concerns Infection Onset Date Last Indicated Resolved Time VRE Comment:Urine 10/30/13 Resolved 11/04/2013 11/04/2013 8 10:33 AM BEAN SNIPPER R/O COVID-19 12/25/2019 12/25/2019 12/26/2019 2:46 PM CDT R/O COVID-19 05/09/2020 05/09/2020 05/09/2020 12:1 7 PM BEAN SNIPPER documented as of this encounter Care Teams Ram Car Operator Relationship Specialty Start Date End Date Dara Tavera FNP [address] [place] [phone] PCP - General NURSE PRACTITIONER 10/13/18 documented as of this encounter
--- OUTSIDE RECORDS SUMMARY | 2025-02-09 23:00 | XMS_ITS | Encounter Summary ---
Author Organization [facility] Address [address] [place] [address] Care Team Providers Care Conventions Assistant Name Role Phone Dara Tavera Primary Care Provider Encounter Details Date Type Department Care Team (Late st Contact Info) Description 03/05/2008 Outpatient Historical [facility] [address] [place] [address] AMBULANCE, [facility] Social History Tobacco Use Types Packs/Day Years Used Date Smoking Tobacco: Never Assessed Comments Unknown Sex and Gender Information Value Date Recorded Sex Assigned at Not on file Legal Sex Female 5:22 AM LAB ASST Gender Identity Not on file Sexual Orientation Not on file documented as of this encounter Plan of Treatment Not on file documented as of this encounter Visit Diagnoses Not on filedocumented in this encounter Additional Health Concerns Infection Onset Date Last Indicated Resolved Time VRE Comment:Urine 10/30/13 Resolved 11/04/2013 11/04/2013 8 10:33 AM LAB ASST R/O COVID-19 12/25/2019 12/25/2019 12/26/2019 2:46 PM CDT R/O COVID-19 05/09/2020 05/09/2020 05/09/2020 12:1 7 PM LAB ASST documented as of this encounter Care Teams Conventions Assistant Relationship Specialty Start Date End Date Dara Tavera FNP [address] [place] [phone] PCP - General NURSE PRACTITIONER 10/13/18 documented as of this encounter
--- OUTSIDE RECORDS SUMMARY | 2025-02-09 23:00 | XMS_ITS | Encounter Summary ---
Author Organization [facility] Address [address] [place] [address] Care Team Providers Care Culled Fruit Packer Name Role Phone Dara Tavera AMANDEEP Primary Care Provider Encounter Details Date Type Department Care Team (Latest Contact Info) Description 04/20/2008 Outpatient Historical [facility] [address] [place] [address] AMBULANCE, [facility] Other Specified Cardiac Dysrhythmias; Unspecified Nonpsychotic Mental Disorder; Personal History of Allergy to Penicillin; Personal History of Allergy to Sulfonamides; Personal History of Allergy to Analgesic Agent; Personal History of Allergy to Other Specified Medicinal Agents; Personal History of Allergy to Other Antibiotic Agent; Personal History of Allergy to Narcotic Agent Social History Tobacco Use Types Packs/Day Years Used Date Smoking Tobacco: Never Assessed Comments Unknown Sex and Gender Information Value Date Recorded Sex Assigned at Not on file Legal Sex Female 5:22 AM CORNICE UPHOLSTERER Gender Identity Not on file Sexual Orientation Not on file documented as of this encounter Plan of Treatment Not on file documented as of this encounter Visit Diagnoses Diagnosis Other specified cardiac dysrhythmias(427.89) Other specified cardiac dysrhythmias Unspecified nonpsychotic mental disorder Personal history of allergy to penicillin Personal history of allergy to sulfonamides Personal history of allergy to analgesic agent Personal history of allergy to other specified medicinal agents Personal history of allergy to other antibiotic agent Personal history of allergy to narcotic agent documented in this encounter Additional Health Concerns Infection Onset Date Last Indicated Resolved Time VRE Comment:Urine 10/30/13 Resolved 11/04/2013 11/04/2013 8 10:33 AM CORNICE UPHOLSTERER R/O COVID-19 12/25/2019 12/25/2019 12/26/2019 2:46 PM CDT R/O COVID-05/09/2020 05/09/2020 05/09/2020 12:1 7 PM CORNICE UPHOLSTERER documented as of this encounter Care Teams Culled Fruit Packer Relationship Specialty Start Date End Date Dara Tavera FNP [address] [place] [phone] PCP - General NURSE PRACTITIONER 10/13/18 documented as of this encounter
--- OUTSIDE RECORDS SUMMARY | 2025-02-09 23:00 | XMS_ITS | Encounter Summary ---
Author Organization [facility] Address [address] [place] [address] Care Team Providers Care Caul Fat Puller Name Role Phone Dara Tavera AMANDEEP Primary Care Provider Encounter Details Date Type Department Care Team (Late st Contact Info) Description 08/11/2007 Emergency [facility] Emergency Department [address] [place] [address] Ed, Physician NO ADDRESS ON FILE Amaury De La Rosa MD NO ADDRESS ON FILE Social History Tobacco Use Types Packs/Day Years Used Date Smoking Tobacco: Never Assessed Comments Unknown Sex and Gender Information Value Date Recorded Sex Assigned at Not on file Legal Sex Female 5:22 AM DUSTER TENDER Gender Identity Not on file Sexual Orientation Not on file documented as of this encounter Plan of Treatment Not on file documented as of this encounter Procedures Procedure Name Priority Date/Time Associated Diagnosis Comments XR ABDOMEN 1 VW Routine 08/12/2007 4:46 AM DUSTER TENDER CBC WITH DIFFERENTIAL Stat 08/12/2007 4:19 AM DUSTER TENDER LIPASE Stat 08/12/2007 4:19 AM DUSTER TENDER COMPREHENSIVE METABOLIC PANEL Stat 08/12/2007 4:19 AM DUSTER TENDER URINALYSIS W/REFLEX MICROSCOPIC Stat 08/12/2007 3:10 AM DUSTER TENDER documented in this encounter Results * XR ABDOMEN 1 VW (08/12/2007 4:46 AM DUSTER TENDER) Anatomical Region Laterality Modality Abdomen Other 08/12/2007 4:46 AM DUSTER TENDER Narrative 08/12/2007 4:46 AM DUSTER TENDER Exam: KUB Date/Time of Exam: Aug 12, 2007 4:46:53 AM History: Left lower quadrant pain. Comparison: 07/21/2007. Findings: KUB on 2 films demonstrate surgical clips of the right upper quadrant. Moderate retained fecal material throughout the colon is present. Surgical clips of the left pelvis are noted. No gross organomegaly or definite pathologic calcification is identified. Impression: 1. Moderate retained fecal material throughout the colon/constipation. 2. Postoperative change. - Procedure Note ErichAkira perry - 08/13/2007 Exam: KUB Date/Time of Exam: Aug 12, 2007 4:46:53 AM History: Left lower quadrant pain. Comparison: 07/21/2007. Findings: KUB on 2 films demonstrate surgical clips of the right upperquadrant. Moderate retained fecal material throughout the colon is present. Surgical clips of the leftpelvis are noted. No gross organomegaly or definite pathologic calcification is identified. Impression: 1. Moderate retained fecal material throughout the colon/constipation. 2. Postoperative change. - Amaury De La Rosa MD DIAGNOSTIC IMAGING ORDERABLES Fi nal Result * CBC WITH DIFFERENTIAL (08/12/2007 4:19 AM DUSTER TENDER) RBC 4.56 4.20 - 5.40 Mil/ul [facility] MCHC 33.8 30.0 - 35.0 g/dL [facility] LYMPHOCYTE ABSOLUTE 2.2 1.2 - 4.0 K/ul [facility] LYMPHOCYTES 25.6 24.0 - 44.0 % [facility] MCV 86.4 84.0 - 103.0 Fl [facility] BASOPHILS 0.7 0.0 - 1.0 % [facility] MPV 9.9 8.9 - 12.8 Fl [facility] BASOPHILS ABSOLUTE 0.1 0.0 - 0.2 K/ul [facility] HEMOGLOBIN 13.3 12.0 - 16.0 g/dL [facility] MONOCYTES 6.3 2.0 - 10.0 % [facility] RDW 14.1 11.0 - 14.5 % [facility] MONOCYTE ABSOLUTE 0.5 0.1 - 0.6 K/ul [facility] WBC 8.6 4.5 - 11.0 K/ul [facility] NEUTROPHILS 65.3 42.2 - 75.2 % [facility] MCH 29.2 27.0 - 34.0 pg [facility] NEUTROPHIL ABSOLUTE 5.6 2.0 - 8.0 K/ul [facility] HEMATOCRIT 39.4 36.0 - 46.0 % [facility] PLATELETS 233 140 - 440 K/ul [facility] EOSINOPHIL ABSOLUTE 0.2 0.0 - 0.7 K/ul [facility] EOSINOPHILS 2.1 0.0 - 7.0 % [facility] Blood specimen (specimen) 08/12/2007 4:19 AM DUSTER TENDER 08/12/2007 4:22 AM DUSTER TENDER us Amaury De La Rosa MD HEMATOLOGY ORDERABLES Final Resu lt [facility] [address] [place] [address] * (ABNORMAL) COMPREHENSIVE METABOLIC PANEL (08/12/2007 4:19 AM DUSTER TENDER) GLUCOSE 99 70 - 110 mg/dL [facility] ALKALINE PHOSPHATASE 134(H) 25 - 100 U/L [facility] CHLORIDE 108 95 - 110 mEq/L [facility] ALBUMIN/GLOBULIN RATIO 1.4 1.0 - 2.3 [facility] TOTAL PROTEIN 7.8 6.3 - 8.2 g/dL [facility] SODIUM 136 136 - 145 mEq/L [facility] BILIRUBIN TOTAL 0.2(L) 0.3 - 1.2 mg/dL [facility] BUN 20(H) 7 - 17 mg/dL [facility] CO2 23 22 - 32 mmol/l [facility] ANION GAP 9 9 - 20 mEq/L [facility] AST 20 8 - 33 U/L [facility] POTASSIUM 4.1 3.5 - 5.0 mEq/L [facility] GLOBULIN (CALC) 3.3 2.4 - 3.9 g/dL [facility] ALBUMIN 4.5 3.5 - 5.0 g/dL [facility] CREATININE 0.8 0.7 - 1.2 mg/dL [facility] ALT 24 4 - 36 IU/L [facility] CALCIUM 9.7 8.4 - 10.5 mg/dL [facility] OSMOLALITY, CALCULATED 283 275 - 295 mOsm/Kg [facility] Blood specimen (specimen) 08/12/2007 4:19 AM DUSTER TENDER 08/12/2007 4:22 AM DUSTER TENDER us Amaury De La Rosa MD CHEMISTRY ORDERABLES Final Resul t Performing Organization Address [facility] de Phone Number [facility] [address] [place] [address] * LIPASE (08/12/2007 4:19 AM DUSTER TENDER) Pathologist [facility] LIPASE 49 6 - 51 U/L [facility] Blood specimen (specimen) 08/12/2007 4:19 AM DUSTER TENDER 08/12/2007 4:22 AM DUSTER TENDER Amaury De La Rosa MD CHEMISTRY ORDERABLES Final Resul t Performing Organization Address [facility] Co de Phone Number [facility] [address] [place] [address] * URINALYSIS (08/12/2007 3:10 AM DUSTER TENDER) CLARITY UA Clear Clear [facility] GLUCOSE UA NEGATIVE NEGATIVE [facility] SPECIFIC GRAVITY UA 1.010 <=1.005 [facility] PH UA 7.0 5.0 - 9.0 [facility] BILIRUBIN UA NEGATIVE NEGATIVE [facility] LEUKOCYTE ESTERASE UA NEGATIVE NEGATIVE [facility] MICRO EXAM No No [facility] KETONES UA NEGATIVE NEGATIVE [facility] COLOR UA Yellow Straw [facility] PROTEIN UA NEGATIVE NEGATIVE [facility] BLOOD UA NEGATIVE NEGATIVE [facility] NITRITE UA NEGATIVE NEGATIVE [facility] UROBILINOGEN UA 0.2 0.2 [facility] Urine, clean catch 08/12/2007 3:10 AM DUSTER TENDER 08/12/2007 3:12 AM DUSTER TENDER us Physician Sj Ed URINE ORDERABLES Final Result Performing Organization Address City/State/[facility] Co de Phone Number [facility] [address] [place] [address] documented in this encounter Visit Diagnoses Not on filedocumented in this encounter Additional Health Concerns Infection Onset Date Last Indicated Resolved Time 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
--- OUTSIDE RECORDS SUMMARY | 2025-02-09 23:00 | XMS_ITS | Encounter Summary ---
Author Organization [facility] Address [address] Attn: [place] [address] Care Team Providers Care Photography Coordinator Name Role Phone Dara Tavera Primary Care Provider Encounter Details Date Type Department Care Team ([facility] Contact Info) Description 02/25/2002 Outpatient Historical Raúl Osullivan MD [address] [place] [address] Social History Tobacco Use Types Packs/Day Years Used Date Smoking Tobacco: Never Assessed Comments Unknown Sex and Gender Information Value Date Recorded Sex Assigned at Not on file Legal Sex Female 5:22 AM TRUCK STRIKER Gender Identity Not on file Sexual Orientation Not on file documented as of this encounter Plan of Treatment Not on file documented as of this encounter Visit Diagnoses Not on filedocumented in this encounter Additional Health Concerns Infection Onset Date Last Indicated Resolved Time 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
--- OUTSIDE RECORDS SUMMARY | 2025-02-09 23:00 | XMS_ITS | Encounter Summary ---
Author Organization [facility] Address [address] [place] [address] Care Team Providers Care Spray Rig Operator Name Role Phone Dara Tavera AIRCRAFT MAINTENANCE INSTRUCTOR Primary Care Provider Encounter Details Date Type Department Care Team (Latest Contact Info) Description 04/01/2008 Outpatient Historical [facility] [address] [place] [address] AMBULANCE, [facility] Unspecified Asthma; Unspecified Nonpsychotic Mental Disorder; Other Convulsions (CMS/HCC); Tobacco Use Disorder; Personal History of Allergy to Analgesic Agent; Personal History of Allergy to Other Specified Medicinal Agents Social History Tobacco Use Types Packs/Day Years Used Date Smoking Tobacco: Never Assessed Comments Unknown Sex and Gender Information Value Date Recorded Sex Assigned at Not on file Legal Sex Female 5:22 AM PROFESSOR OF KINESIOLOGY Gender Identity Not on file Sexual Orientation Not on file documented as of this encounter Plan of Treatment Not on file documented as of this encounter Visit Diagnoses Diagnosis Unspecified asthma(493.90) Unspecified asthma Unspecified nonpsychotic mental disorder Other convulsions Tobacco use disorder Personal history of allergy to analgesic agent Personal history of allergy to other specified medicinal agents documented in this encounter Additional Health Concerns Infection Onset Date Last Indicated Resolved Time 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
--- OUTSIDE RECORDS SUMMARY | 2025-02-09 23:00 | XMS_ITS | Encounter Summary ---
Author Organization [facility] Address [address] [place] [address] Care Team Providers Care Pulp Press Tender Name Role Phone Dara Tavera AMANDEEP Primary Care Provider Encounter Details Date Type Department Care Team (Late st Contact Info) Description 05/21/2007 Emergency [facility] Emergency Department [address] [place] [address] Ed, Physician NO ADDRESS ON FILE Rory Lynn MD NO ADDRESS ON FILE Social History Tobacco Use Types Packs/Day Years Used Date Smoking Tobacco: Never Assessed Comments Unknown Sex and Gender Information Value Date Recorded Sex Assigned at Not on file Legal Sex Female 5:22 AM SUPERVISOR COLOR MAKING Gender Identity Not on file Sexual Orientation Not on file documented as of this encounter Plan of Treatment Not on file documented as of this encounter Procedures Procedure Name Priority Date/Time Associated Diagnosis Comments CBC WITH DIFFERENTIAL Routine 05/21/2007 6:18 PM SUPERVISOR COLOR MAKING documented in this encounter Results * (ABNORMAL) CBC WITH DIFFERENTIAL (05/21/2007 6:18 PM SUPERVISOR COLOR MAKING) WBC 9.5 4.5 - 11.0 K/ul INTERFACE SYSTEM RBC 4.41 4.20 - 5.40 Mil/ul INTERFACE SYSTEM HEMOGLOBIN 13.1 12.0 - 16.0 g/dL INTERFACE SYSTEM HEMATOCRIT 38.6 36.0 - 46.0 % INTERFACE SYSTEM MCV 87.5 84.0 - 103.0 Fl INTERFACE SYSTEM MCH 29.7 27.0 - 34.0 pg INTERFACE SYSTEM MCHC 33.9 30.0 - 35.0 g/dL INTERFACE SYSTEM RDW 13.6 11.0 - 14.5 % INTERFACE SYSTEM PLATELETS 235 140 - 440 K/ul INTERFACE SYSTEM MPV 9.9 8.9 - 12.8 Fl INTERFACE SYSTEM NEUTROPHILS 63.1 42.2 - 75.2 % INTERFACE SYSTEM LYMPHOCYTES 23.8(L) 24.0 - 44.0 % INTERFACE SYSTEM MONOCYTES 7.7 2.0 - 10.0 % INTERFACE SYSTEM EOSINOPHILS 4.6 0.0 - 7.0 % INTERFACE SYSTEM BASOPHILS 0.8 0.0 - 1.0 % INTERFACE SYSTEM NEUTROPHIL ABSOLUTE 6.0 2.0 - 8.0 K/ul INTERFACE SYSTEM LYMPHOCYTE ABSOLUTE 2.3 1.2 - 4.0 K/ul INTERFACE SYSTEM MONOCYTE ABSOLUTE 0.7(H) 0.1 - 0.6 K/ul INTERFACE SYSTEM EOSINOPHIL ABSOLUTE 0.4 0.0 - 0.7 K/ul INTERFACE SYSTEM BASOPHILS ABSOLUTE 0.1 0.0 - 0.2 K/ul INTERFACE SYSTEM 05/21/2007 6:18 PM SUPERVISOR COLOR MAKING us Rory Lynn MD HEMATOLOGY ORDERABLES [place] INTERFACE SYSTEM Refer to clinic/hospital department documented in this encounter Visit Diagnoses Not on filedocumented in this encounter Additional Health Concerns Infection Onset Date Last Indicated Resolved Time 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
--- OUTSIDE RECORDS SUMMARY | 2025-02-09 23:00 | XMS_ITS | Encounter Summary ---
Author Organization [facility] Address [address] [place] [address] Care Team Providers Care Drywall Sprayer Name Role Phone Dara Tavera AMANDEEP Primary Care Provider [phone] Encounter Details Date Type Department Care Team (Late st Contact Info) Description 07/20/2007 Emergency [facility] Emergency Department [address] [place] [address] Ed, Physician NO ADDRESS ON FILE Jorge Danielson III G, DO NO ADDRESS ON FILE Social History Tobacco Use Types Packs/Day Years Used Date Smoking Tobacco: Never Assessed Comments Unknown Sex and Gender Information Value Date Recorded Sex Assigned at Not on file Legal Sex Female 5:22 AM WHEY DEPARTMENT OPERATOR Gender Identity Not on file Sexual Orientation Not on file documented as of this encounter Plan of Treatment Not on file documented as of this encounter Procedures Procedure Name Priority Date/Time Associated Diagnosis Comments URINALYSIS W/REFLEX MICROSCOPIC Routine 07/21/2007 1:27 AM WHEY DEPARTMENT OPERATOR XR ABDOMEN 1 VW Stat 07/21/2007 1:21 AM WHEY DEPARTMENT OPERATOR documented in this encounter Results * URINALYSIS (07/21/2007 1:27 AM WHEY DEPARTMENT OPERATOR) COLOR UA Yellow Straw INTERFACE SYSTEM CLARITY UA Clear Clear INTERFACE SYSTEM LEUKOCYTE ESTERASE UA NEGATIVE NEGATIVE INTERFACE SYSTEM NITRITE UA NEGATIVE NEGATIVE INTERFACE SYSTEM PH UA 7.0 5.0 - 9.0 INTERFACE SYSTEM PROTEIN UA NEGATIVE NEGATIVE INTERFACE SYSTEM GLUCOSE UA NEGATIVE NEGATIVE INTERFACE SYSTEM KETONES UA NEGATIVE NEGATIVE INTERFACE SYSTEM UROBILINOGEN UA 0.2 0.2 INTE RFACE SYSTEM BILIRUBIN UA NEGATIVE NEGATIVE INTERFA CE SYSTEM BLOOD UA NEGATIVE NEGATIVE INTERFACE SYSTEM SPECIFIC GRAVITY UA 1.015 <=1.005 INTERFACE SYSTEM MICRO EXAM No No INTERFACE SYSTEM 07/21/2007 1:27 AM WHEY DEPARTMENT OPERATOR Jorge Colinegers III, DO URINE ORDERABLES Edited INTERFACE SYSTEM Refer to clinic/hospital department * XR ABDOMEN 1 VW (07/21/2007 1:21 AM WHEY DEPARTMENT OPERATOR) Anatomical Region Laterality Modality Abdomen Other 07/21/2007 1:21 AM WHEY DEPARTMENT OPERATOR Narrative 07/21/2007 1:21 AM WHEY DEPARTMENT OPERATOR Surgical clips are present in the gallbladder fossa, and in the right side of the pelvic floor. A large amount of stool is present in the colon. No abnormal bowel distention or abnormal gas pattern is seen. The soft tissues are unremarkable. Impression: A large amount of stool is present in the colon. - Procedure Note Benedicto Greene - 07/21/2007 Surgical clips are present in the gallbladder fossa, and in the right sideof the pelvic floor. A large amount of stool is present in the colon. No abnormal boweldistention or abnormal gas pattern is seen. The soft tissues are unremarkable. Impression: A large amount of stool is present in the colon. 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
--- OUTSIDE RECORDS SUMMARY | 2025-02-09 23:00 | XMS_ITS | Encounter Summary ---
Author Organization [facility] Address [address] [place] [address] Care Team Providers Care Plate Mill Hand Name Role Phone Dara Tavera AMANDEEP Primary Care Provider [phone] Encounter Details Date Type Department Care Team (Late st Contact Info) Description 07/22/2007 Emergency [facility] Emergency Department [address] [place] [address] Ed, Physician NO ADDRESS ON FILE Amaury De La Rosa MD NO ADDRESS ON FILE Social History Tobacco Use Types Packs/Day Years Used Date Smoking Tobacco: Never Assessed Comments Unknown Sex and Gender Information Value Date Recorded Sex Assigned at Not on file Legal Sex Female 5:22 AM NURSING UNIT MANAGER Gender Identity Not on file Sexual Orientation Not on file documented as of this encounter Plan of Treatment Not on file documented as of this encounter Procedures Procedure Name Priority Date/Time Associated Diagnosis Comments URINALYSIS MICROSCOPY ONLY Routine 07/22/2007 12:38 PM NURSING UNIT MANAGER URINALYSIS W/REFLEX MICROSCOPIC Routine 07/22/2007 12:38 PM NURSING UNIT MANAGER URINE CULTURE Stat 07/22/2007 12:38 PM NURSING UNIT MANAGER documented in this encounter Results * (ABNORMAL) URINALYSIS MICROSCOPY ONLY (07/22/2007 12:38 PM NURSING UNIT MANAGER) WBC URINE None Seen 0 - 2 INTERFACE SYSTEM RBC UA None Seen 0 - 2 INTERFACE SYSTEM HYALINE CAST None Seen 0 - 2 INTERFA CE SYSTEM BACTERIA UA Few(A) None Seen INTERFAC E SYSTEM 07/22/2007 12:3 8 PM NURSING UNIT MANAGER Amaury De La Rosa MD URINE ORDERABLES Edited Performing Organization Address [facility] Phone Number INTERFACE SYSTEM Refer to clinic/hospital department * (ABNORMAL) URINALYSIS (07/22/2007 12:38 PM NURSING UNIT MANAGER) COLOR UA Dark Yellow Straw INTERFAC E SYSTEM CLARITY UA Clear Clear INTERFACE SYSTEM [...] SYSTEM MICRO EXAM Yes(A) No INTERFACE SYSTEM 07/22/2007 12:3 8 PM NURSING UNIT MANAGER Amaury De La Rosa MD URINE ORDERABLES Edited Performing Organization Address [facility] Phone Number INTERFACE SYSTEM Refer to clinic/hospital department * URINE CULTURE (07/22/2007 12:38 PM NURSING UNIT MANAGER) FINAL REPORT No growth INTERFA CE SYSTEM 07/22/2007 12:3 8 PM NURSING UNIT MANAGER 07/22/2007 3:01 PM NURSING UNIT MANAGER Result [facility] Amaruy De La Rosa MD MICROBIOLOGY - GENERAL ORDERABLE S Final Result Performing Organization Address [facility] Phone Number INTERFACE SYSTEM Refer to clinic/hospital department documented in this encounter Visit Diagnoses Not on filedocumented in this encounter Additional Health Concerns Infection Onset Date Last Indicated Resolved Time 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
--- OUTSIDE RECORDS SUMMARY | 2025-02-09 23:00 | XMS_ITS | Encounter Summary ---
Author Organization [facility] Address [address] [place] [address] Care Team Providers Care Credit Control Administrator Name Role Phone Dara Tavera AMANDEEP Primary Care Provider [phone] Encounter Details Date Type Department Care Team (Late st Contact Info) Description 04/26/2007 Emergency [facility] Emergency Department [address] [place] [address] Kenney Simmons MD [address] [place] [address] Abdominal Pain, Other Specified Site (Primary Dx) Social History Tobacco Use Types Packs/Day Years Used Date Smoking Tobacco: Never Assessed Comments Unknown Sex and Gender Information Value Date Recorded Sex Assigned at Not on file Legal Sex Female 5:22 AM REINFORCING IRON WORKER HELPER Gender Identity Not on file Sexual Orientation Not on file documented as of this encounter Plan of Treatment Not on file documented as of this encounter Procedures Procedure Name Priority Date/Time Associated Diagnosis Comments URINALYSIS W/REFLEX MICROSCOPIC Routine 04/26/2007 11:48 PM REINFORCING IRON WORKER HELPER CT URINARY CALCULI WO CONTRAST Routine 04/26/2007 11:22 PM REINFORCING IRON WORKER HELPER documented in this encounter Results * (ABNORMAL) URINALYSIS (04/26/2007 11:48 PM REINFORCING IRON WORKER HELPER) COLOR UA Yellow Straw INTERFACE SYSTEM CLARITY [...] NEGATIVE NEGATIVE INTERFACE SYSTEM SPECIFIC GRAVITY UA >=1.030(A) <=1.005 INTERFACE SYSTEM MICRO EXAM No No INTERFACE SYSTEM 04/26/2007 11:4 8 PM REINFORCING IRON WORKER HELPER us Physician Sj Ed URINE ORDERABLES Edited INTERFACE SYSTEM Refer to clinic/hospital department * CT RENAL COLIC WO CONT (04/26/2007 11:22 PM REINFORCING IRON WORKER HELPER) Anatomical Region Laterality Modality Abdomen Other 04/26/2007 11:2 2 PM REINFORCING IRON WORKER HELPER Narrative 04/26/2007 11:22 PM REINFORCING IRON WORKER HELPER CT Scan For Renal Colic: Date: 04/27/2007History: Blood in the urine. Procedure: A routine prone CT scan for renal colic was obtained. Findings: 1. The kidneys are normal without hydronephrosis, perinephric stranding, or stones. Theproximal right ureter is mildly distended but this appears to be within normal limits. It narrowswithout visible abnormality and there are no ureteral stones. The left ureter is normal. There areno calcifications within the bladder. There is increased density in the dependent portion of thebladder probably due to hemorrhage mixed with urine. A focal bladder mass could be obscured withinthis area. 2. There are radiopaque densities at the inferior margin of the urinary bladder, possibly clips. Therealso radiopaque densities in the anterior left side of the pelvis consistent with previous surgery. These radiopaque densities are unchanged from 09/23/2003.3. There has been a previous hysterectomy. The ovaries could not be identified and have probably beenremoved. 4. The colon appears normal. There has been an appendectomy. The small bowel is not distended. 5. There has been a previous cholecystectomy. 6. There is no identified abnormality of the partially included liver or adrenals. The pancreas isnormal. There is no free fluid, free air, or lymphadenopathy. 7. The spleen has a few tiny calcifications consistent with old granulomatous disease. 8. There are minimal degenerative changes in the spine. 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 Impression: No urinary tract stones. Increased density in the dependent portion of the urinarybladder, probably due to blood mixed with urine. This limits the evaluation for a bladder mass. Previous surgery with radiopaque densities which may be clips inferior to the bladder and theanterior left side of the pelvis. The hemorrhage is new from 01/14/2007. The surgical clips are notchanged from previously. The wall of the anterior bladder was thickened on 01/14/2007 scan but thisis probably normal postoperative change because it is unchanged from 09/23/2003. Previoushysterectomy. Old granulomatous disease. Previous cholecystectomy. Minimal degenerative changes inthe spine. Fusion of T11 and T12, possibly congenital. - Dictated By: Bhumi Long M.D. Electronically Signed By: Bhumi Long M.D. Date Signed: 04/27/07 Procedure Note 05/10/2009 CT Scan For Renal Colic: Date: 04/27/2007History: Blood in the urine. Procedure: A routine prone CT scan for renal colic was obtained. Findings: 1. The kidneys are normal without hydronephrosis, perinephric stranding,or stones. Theproximal right ureter is mildly distended but this appears to be within normal limits. Itnarrowswithout visible abnormality and there are no ureteral stones. The left ureter is normal.There areno calcifications within the bladder. There is increased density in the dependent portion ofthebladder probably due to hemorrhage mixed with urine. A focal bladder mass could be obscuredwithinthis area. 2. There are radiopaque densities at the inferior margin of the urinarybladder, possibly clips. Therealso radiopaque densities in the anterior left side of the pelvisconsistent with previous surgery. These radiopaque densities are unchanged from 09/23/2003.3. There has been aprevious hysterectomy. The ovaries could not be identified and have probably beenremoved. 4. The colon appears normal. There has been an appendectomy. The smallbowel is not distended. 5. There has been a previous cholecystectomy. 6. There is no identified abnormality of the partially included liver oradrenals. The pancreas isnormal. There is no free fluid, free air, or lymphadenopathy. 7. The spleen has a few tiny calcifications consistent with oldgranulomatous disease. 8. There are minimal degenerative changes in the spine. T11 and [id number] bodies are fused,possibly congenital. Impression: No urinary tract stones. Increased density in the dependent portion of theurinarybladder, probably due to blood mixed with urine. This limits the evaluation for a bladder mass. Previous surgery with radiopaque densities which may be clips inferior tothe bladder and theanterior left side of the pelvis. The hemorrhage is new from 01/14/2007. Thesurgical clips are notchanged from previously. The wall of the anterior bladder was thickened on 01/14/2007scan but thisis probably normal postoperative change because it is unchanged from 09/23/2003.Previoushysterectomy. Old granulomatous disease. Previous cholecystectomy. Minimal degenerative changes inthespine. Fusion of T11 and T12, possibly congenital. - Dictated By: Bhumi Long M.D. Electronically Signed By: Bhumi Long M.D. 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
--- OUTSIDE RECORDS SUMMARY | 2025-02-09 23:00 | XMS_ITS | Encounter Summary ---
Author Organization [facility] Address [address] [place] [address] Care Team Providers Care Database Manager Name Role Phone Dara Tavera AMANDEEP Primary Care Provider Encounter Details Date Type Department Care Team (Late st Contact Info) Description 08/21/2007 Emergency [facility] Emergency Department [address] [place] [address] Ed, Physician NO ADDRESS ON FILE Flex Ricks MD NO ADDRESS ON FILE Social History Tobacco Use Types Packs/Day Years Used Date Smoking Tobacco: Never Assessed Comments Unknown Sex and Gender Information Value Date Recorded Sex Assigned at Not on file Legal Sex Female 5:22 AM OIL WELL SERVICES SUPERVISOR Gender Identity Not on file Sexual Orientation Not on file documented as of this encounter Plan of Treatment Not on file documented as of this encounter Procedures Procedure Name Priority Date/Time Associated Diagnosis Comments CT ABDOMEN PELVIS WO CONTRAST Routine 08/21/2007 11:56 PM OIL WELL SERVICES SUPERVISOR CBC WITH DIFFERENTIAL Stat 08/21/2007 11:44 PM OIL WELL SERVICES SUPERVISOR BASIC METABOLIC PANEL Stat 08/21/2007 11:44 PM OIL WELL SERVICES SUPERVISOR URINALYSIS W/REFLEX MICROSCOPIC Stat 08/21/2007 10:16 PM OIL WELL SERVICES SUPERVISOR documented in this encounter Results * CT ABDOMEN PELVIS WO CONTRAST (08/21/2007 11:56 PM OIL WELL SERVICES SUPERVISOR) Anatomical Region Laterality Modality Abdomen Other 08/21/2007 11:5 6 PM OIL WELL SERVICES SUPERVISOR Narrative 08/22/2007 12:47 AM OIL WELL SERVICES SUPERVISOR CT Scan For Renal Colic: Date: 08/21/2007 History: Right flank pain. Procedure: A routine prone CT scan for renal colic was obtained. Findings: 1. There are no renal stones. There is no hydronephrosis or perinephric stranding. There are no ureteral stones or stones within the urinary bladder. 2. There are surgical clips in the left inguinal region and inferior to the urinary bladder. 3. There has been a previous hysterectomy. The ovaries could not be identified and may have been removed. 4. There may be a few diverticula within the distal descending colon and the sigmoid. Evaluation is limited because of the lack of distention and intraluminal contrast. There is no diverticulitis. The colon is otherwise unremarkable. 5. According to the history, there has been a previous appendectomy. There has been a previous cholecystectomy. The common bile duct is not distended. 6. The small bowel is not distended. There is no small bowel malrotation. The liver, spleen, and right adrenal are not completely included on the scan. There is no identified abnormality of the liver, spleen, pancreas, or adrenals. There is no free fluid, free air, or lymphadenopathy. 7. There are degenerative changes of the facet joints within the lumbar spine. There is mild sclerosis without visible erosions adjacent to the right SI joint. The T11-T12 disc space is fused, seen best on the sagittal information images. There is a small hemangioma in the right side of the L3 vertebral body. Impression: No urinary tract stones. Previous pelvic surgery with left inguinal surgical clips and surgical clips inferior to the urinary bladder. Previous hysterectomy. Previous cholecystectomy. Possibly a few diverticula within the distal descending colon and proximal sigmoid. Evaluation for diverticulosis is limited without distention of bowel. Lumbar spine facet joint degenerative changes. Mild sclerosis adjacent to the right SI joint without change from 04/27/2007, possibly previous sacroiliitis. Fused T11-T12 disc space, without change. No change in the L3 vertebral body small hemangioma. - Procedure Note Bhumi Long - 08/22/2007 CT Scan For Renal Colic: Date: 08/21/2007 History: Right flank pain. Procedure: A routine prone CT scan for renal colic was obtained. Findings: 1. There are no renal stones. There is no hydronephrosis or perinephricstranding. There are no ureteral stones or stones within the urinary bladder. 2. There are surgical clips in the left inguinal region and inferior tothe urinary bladder. 3. There has been a previous hysterectomy. The ovaries could not beidentified and may have been removed. 4. There may be a few diverticula within the distal descending colon andthe sigmoid. Evaluation is limited because of the lack of distention and intraluminal contrast. Thereis no diverticulitis. The colon is otherwise unremarkable. 5. According to the history, there has been a previous appendectomy. Therehas been a previous cholecystectomy. The common bile duct is not distended. 6. The small bowel is not distended. There is no small bowel malrotation.The liver, spleen, and right adrenal are not completely included on the scan. There is no identifiedabnormality of the liver, spleen, pancreas, or adrenals. There is no free fluid, free air, orlymphadenopathy. 7. There are degenerative changes of the facet joints within the lumbarspine. There is mild sclerosis without visible erosions adjacent to the right SI joint. The T11-T12 discspace is fused, seen best on the sagittal information images. There is a small hemangioma in theright side of the L3 vertebral body. Impression: No urinary tract stones. Previous pelvic surgery with leftinguinal surgical clips and surgical clips inferior to the urinary bladder. Previous hysterectomy.Previous cholecystectomy. Possibly a few diverticula within the distal descending colon and proximalsigmoid. Evaluation for diverticulosis is limited without distention of bowel. Lumbar spine facetjoint degenerative changes. Mild sclerosis adjacent to the right SI joint without change from04/27/2007, possibly previous sacroiliitis. Fused T11-T12 disc space, without change. No changein the L3 vertebral body small hemangioma. - us Flex Ricks MD CT ORDERABLES Final Resu lt * CBC WITH DIFFERENTIAL (08/21/2007 11:44 PM OIL WELL SERVICES SUPERVISOR) LYMPHOCYTE ABSOLUTE 2.5 1.2 - 4.0 K/ul [facility] LYMPHOCYTES 24.0 24.0 - 44.0 % [facility] MCV 88.3 84.0 - 103.0 Fl [facility] BASOPHILS 0.6 0.0 - 1.0 % [facility] MPV 9.8 8.9 - 12.8 Fl [facility] BASOPHILS ABSOLUTE 0.1 0.0 - 0.2 K/ul [facility] HEMOGLOBIN 12.6 12.0 - 16.0 g/dL [facility] MONOCYTES 4.8 2.0 - 10.0 % [facility] RDW 14.0 11.0 - 14.5 % [facility] MONOCYTE ABSOLUTE 0.5 0.1 - 0.6 K/ul [facility] WBC 10.5 4.5 - 11.0 K/ul [facility] NEUTROPHILS 68.9 42.2 - 75.2 % [facility] MCH 28.9 27.0 - 34.0 pg [facility] NEUTROPHIL ABSOLUTE 7.2 2.0 - 8.0 K/ul [facility] HEMATOCRIT 38.5 36.0 - 46.0 % [facility] PLATELETS 284 140 - 440 K/ul [facility] EOSINOPHIL ABSOLUTE 0.2 0.0 - 0.7 K/ul [facility] EOSINOPHILS 1.7 0.0 - 7.0 % [facility] RBC 4.36 4.20 - 5.40 Mil/ul [facility] MCHC 32.7 30.0 - 35.0 g/dL [facility] Blood specimen (specimen) 08/21/2007 11:44 PM OIL WELL SERVICES SUPERVISOR 08/21/2007 11:49 PM OIL WELL SERVICES SUPERVISOR us Flex Ricks MD HEMATOLOGY ORDERABLES Destiny ricks Result [facility] [address] [place] [address] * (ABNORMAL) BASIC METABOLIC PANEL (08/21/2007 11:44 PM OIL WELL SERVICES SUPERVISOR) CREATININE 0.8 0.7 - 1.2 mg/dL [facility] CALCIUM 9.8 8.4 - 10.5 mg/dL [facility] GLUCOSE 94 70 - 110 mg/dL [facility] CHLORIDE 112(H) 95 - 110 mEq/L [facility] SODIUM 139 136 - 145 mEq/L [facility] ANION GAP 11 9 - 20 mEq/L [facility] BUN 16 7 - 17 mg/dL [facility] CO2 20(L) 22 - 32 mmol/l [facility] OSMOLALITY, CALCULATED 286 275 - 295 mOsm/Kg [facility] POTASSIUM 3.6 3.5 - 5.0 mEq/L [facility] Blood specimen (specimen) 08/21/2007 11:44 PM OIL WELL SERVICES SUPERVISOR 08/21/2007 11:49 PM OIL WELL SERVICES SUPERVISOR Flex Ricks MD CHEMISTRY ORDERABLES Final Result [facility] [address] [place] [address] * URINALYSIS (08/21/2007 10:16 PM OIL WELL SERVICES SUPERVISOR) Pathologist [facility] CLARITY UA Clear Clear [facility] GLUCOSE UA NEGATIVE NEGATIVE [facility] SPECIFIC GRAVITY UA 1.025 <=1.005 [facility] PH UA 6.5 5.0 - 9.0 [facility] BILIRUBIN UA NEGATIVE NEGATIVE [facility] LEUKOCYTE ESTERASE UA NEGATIVE NEGATIVE [facility] MICRO EXAM No No [facility] KETONES UA NEGATIVE NEGATIVE [facility] COLOR UA Yellow Straw [facility] PROTEIN UA NEGATIVE NEGATIVE [facility] BLOOD UA NEGATIVE NEGATIVE [facility] NITRITE UA NEGATIVE NEGATIVE [facility] UROBILINOGEN UA 0.2 0.2 [facility] Urine, clean catch 08/21/2007 10:16 PM OIL WELL SERVICES SUPERVISOR 08/21/2007 10:16 PM OIL WELL SERVICES SUPERVISOR us Physician Sj Ed URINE ORDERABLES Final Result Performing Organization Address City/State/[facility] Co de Phone Number [facility] [address] [place] [address] documented in this encounter Visit Diagnoses Not on filedocumented in this encounter Additional Health Concerns Infection Onset Date Last Indicated Resolved Time 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
--- OUTSIDE RECORDS SUMMARY | 2025-02-09 23:00 | XMS_ITS | Encounter Summary ---
Author Organization [facility] Address [address] [place] [address] Care Team Providers Care Cell Cleaner Name Role Phone Dara Tavera Primary Care Provider Encounter Details Date Type Department Care Team (Late st Contact Info) Description 07/31/1997 Outpatient Historical [facility] Social History Tobacco Use Types Packs/Day Years Used Date Smoking Tobacco: Never Assessed Comments Unknown Sex and Gender Information Value Date Recorded Sex Assigned at Not on file Legal Sex Female 5:22 AM INSTITUTIONAL RESEARCH COORDINATOR Gender Identity Not on file Sexual Orientation Not on file documented as of this encounter Plan of Treatment Not on file documented as of this encounter Visit Diagnoses Not on filedocumented in this encounter Additional Health Concerns Infection Onset Date Last Indicated Resolved Time VRE Comment:Urine 10/30/13 Resolved 11/04/2013 11/04/2013 8 10:33 AM INSTITUTIONAL RESEARCH COORDINATOR R/O COVID-19 12/25/2019 12/25/2019 12/26/2019 2:46 PM CDT R/O COVID-19 05/09/2020 05/09/2020 05/09/2020 12:1 7 PM INSTITUTIONAL RESEARCH COORDINATOR documented as of this encounter Care Teams Cell Cleaner Relationship Specialty Start Date End Date Dara Tavera FNP [address] [place] [phone] PCP - General NURSE PRACTITIONER 10/13/18 documented as of this encounter
--- OUTSIDE RECORDS SUMMARY | 2025-02-09 23:00 | XMS_ITS | Encounter Summary ---
Author Organization [facility] Address [address] [place] [address] Care Team Providers Care Director Of Nuclear Medicine Name Role Phone Dara Tavera Primary Care Provider [phone] Encounter Details Date Type Department Care Team (Latest Contact Info) Description 07/02/1997 Outpatient Historical [facility] Roney Arora MD [address] [facility] [address] [place] [address] Unspecified osteomyelitis, other specified site (Primary Dx) Social History Tobacco Use Types Packs/Day Years Used Date Smoking Tobacco: Never Assessed Comments Unknown Sex and Gender Information Value Date Recorded Sex Assigned at Not on file Legal Sex Female 5:22 AM VOCAL MUSIC INSTRUCTOR Gender Identity Not on file Sexual Orientation Not on file documented as of this encounter Plan of Treatment Not on file documented as of this encounter Visit Diagnoses Diagnosis Unspecified osteomyelitis, other specified site- Primary documented in this encounter Additional Health Concerns Infection Onset Date Last Indicated Resolved Time VRE Comment:Urine 10/30/13 Resolved 11/04/2013 11/04/2013 8 10:33 AM VOCAL MUSIC INSTRUCTOR R/O COVID-19 12/25/2019 12/25/2019 12/26/2019 2:46 PM CDT R/O COVID-19 05/09/2020 05/09/2020 05/09/2020 12:1 7 PM VOCAL MUSIC INSTRUCTOR documented as of this encounter Care Teams Director Of Nuclear Medicine Relationship Specialty Start Date End Date Dara Tavera FNP [address] [place] [phone] PCP - General NURSE PRACTITIONER 10/13/18 documented as of this encounter
--- OUTSIDE RECORDS SUMMARY | 2025-02-09 23:00 | XMS_ITS | Encounter Summary ---
Author Organization [facility] Address [address] [place] [address] Care Team Providers Care Work Study Student Name Role Phone Dara Tavera Primary Care Provider Encounter Details Date Type Department Care Team (Late st Contact Info) Description 05/08/2007 Emergency [facility] Emergency Department [address] [place] [address] [place], NO ADDRESS ON FILE Shortness of Breath (Primary Dx) Social History Tobacco Use Types Packs/Day Years Used Date Smoking Tobacco: Never Assessed Comments Unknown Sex and Gender Information Value Date Recorded Sex Assigned at Not on file Legal Sex Female 5:22 AM STATION BAGGAGE AGENT Gender Identity Not on file Sexual Orientation Not on file documented as of this encounter Plan of Treatment Not on file documented as of this encounter Visit Diagnoses Diagnosis Shortness of breath- Primary documented in this encounter Additional Health Concerns Infection Onset Date Last Indicated Resolved Time VRE Comment:Urine 10/30/13 Resolved 11/04/2013 11/04/2013 8 10:33 AM STATION BAGGAGE AGENT R/O COVID-19 12/25/2019 12/25/2019 12/26/2019 2:46 PM CDT R/O COVID-19 05/09/2020 05/09/2020 05/09/2020 12:1 7 PM STATION BAGGAGE AGENT documented as of this encounter Care Teams Work Study Student Relationship Specialty Start Date End Date Dara Tavera FNP [address] [place] [address] PCP - General NURSE PRACTITIONER 10/13/18 documented as of this encounter
--- OUTSIDE RECORDS SUMMARY | 2025-02-09 23:00 | XMS_ITS | Encounter Summary ---
Author Organization [facility] Address [address] [place] [address] Care Team Providers Care Electronic Coils Supervisor Name Role Phone Dara Tavera Primary Care Provider Encounter Details Date Type Department Care Team (Late st Contact Info) Description 08/11/2007 Emergency [facility] Emergency Department [address] [place] [address] Ed, Physician NO ADDRESS ON FILE Social History Tobacco Use Types Packs/Day Years Used Date Smoking Tobacco: Never Assessed Comments Unknown Sex and Gender Information Value Date Recorded Sex Assigned at Not on file Legal Sex Female 5:22 AM WOMEN'S SWIM COACH Gender Identity Not on file Sexual Orientation Not on file documented as of this encounter Plan of Treatment Not on file documented as of this encounter Visit Diagnoses Not on filedocumented in this encounter Additional Health Concerns Infection Onset Date Last Indicated Resolved Time VRE Comment:Urine 10/30/13 Resolved 11/04/2013 11/04/2013 8 10:33 AM WOMEN'S SWIM COACH R/O COVID-19 12/25/2019 12/25/2019 12/26/2019 2:46 PM CDT R/O COVID-19 05/09/2020 05/09/2020 05/09/2020 12:1 7 PM WOMEN'S SWIM COACH documented as of this encounter Care Teams Electronic Coils Supervisor Relationship Specialty Start Date End Date Dara Tavera FNP [address] [place] [phone] PCP - General NURSE PRACTITIONER 10/13/18 documented as of this encounter
--- OUTSIDE RECORDS SUMMARY | 2025-02-09 23:00 | XMS_ITS | Encounter Summary ---
Author Organization [facility] Address [address] [place] [address] Care Team Providers Care Clerical Secretary Name Role Phone Dara Tavera Primary Care Provider Encounter Details Date Type Department Care Team (Late st Contact Info) Description 07/20/2007 Outpatient Historical [facility] [address] [facility] [address] [place] [address] Prasad Carpenter MD NO ADDRESS ON FILE Social History Tobacco Use Types Packs/Day Years Used Date Smoking Tobacco: Never Assessed Comments Unknown Sex and Gender Information Value Date Recorded Sex Assigned at Not on file Legal Sex Female 5:22 AM SERVICE AGENT Gender Identity Not on file Sexual Orientation Not on file documented as of this encounter Plan of Treatment Not on file documented as of this encounter Visit Diagnoses Not on filedocumented in this encounter Additional Health Concerns Infection Onset Date Last Indicated Resolved Time VRE Comment:Urine 10/30/13 Resolved 11/04/2013 11/04/2013 8 10:33 AM SERVICE AGENT R/O COVID-19 12/25/2019 12/25/2019 12/26/2019 2:46 PM CDT R/O COVID-19 05/09/2020 05/09/2020 05/09/2020 12:1 7 PM SERVICE AGENT documented as of this encounter Care Teams Clerical Secretary Relationship Specialty Start Date End Date Dara Tavera FNP [address] [place] [phone] PCP - General NURSE PRACTITIONER 10/13/18 documented as of this encounter
--- OUTSIDE RECORDS SUMMARY | 2025-02-09 23:00 | XMS_ITS | Encounter Summary ---
Author Organization [facility] Address [address] [place] [address] Care Team Providers Care Senior Revenue Accountant Name Role Phone Dara Tavera Primary Care Provider Encounter Details Date Type Department Care Team (Late st Contact Info) Description 07/03/2007 Outpatient [facility] [address] [place] [address] Tej Will MD [address] [address] Social History Tobacco Use Types Packs/Day Years Used Date Smoking Tobacco: Never Assessed Comments Unknown Sex and Gender Information Value Date Recorded Sex Assigned at Not on file Legal Sex Female 5:22 AM LONG LINE TEAMSTER Gender Identity Not on file Sexual Orientation Not on file documented as of this encounter Plan of Treatment Not on file documented as of this encounter Visit Diagnoses Not on filedocumented in this encounter Additional Health Concerns Infection Onset Date Last Indicated Resolved Time VRE Comment:Urine 10/30/13 Resolved 11/04/2013 11/04/2013 8 10:33 AM LONG LINE TEAMSTER R/O COVID-19 12/25/2019 12/25/2019 12/26/2019 2:46 PM CDT R/O COVID-19 05/09/2020 05/09/2020 05/09/2020 12:1 7 PM LONG LINE TEAMSTER documented as of this encounter Care Teams Senior Revenue Accountant Relationship Specialty Start Date End Date Dara Tavera FNP [address] [place] [phone] PCP - General NURSE PRACTITIONER 10/13/18 documented as of this encounter
--- OUTSIDE RECORDS SUMMARY | 2025-02-09 23:01 | XMS_ITS | Encounter Summary ---
Author Organization [facility] Address [address] [place] [address] Care Team Providers Care Securities Compliance Examiner Name Role Phone Dara Tavera Primary Care Provider Encounter Details Date Type Department Care Team (Latest Contact Info) Description 01/31/2006 Outpatient Historical [facility] [address] [place] [address] AMBULANCE, [facility] Unspecified Nonpsychotic Mental Disorder (Primary Dx) Social History Tobacco Use Types Packs/Day Years Used Date Smoking Tobacco: Never Assessed Comments Unknown Sex and Gender Information Value Date Recorded Sex Assigned at Not on file Legal Sex Female 5:22 AM PLANT TECHNICIAN Gender Identity Not on file Sexual Orientation Not on file documented as of this encounter Plan of Treatment Not on file documented as of this encounter Visit Diagnoses Diagnosis Unspecified nonpsychotic mental disorder- Primary documented in this encounter Additional Health Concerns Infection Onset Date Last Indicated Resolved Time VRE Comment:Urine 10/30/13 Resolved 11/04/2013 11/04/2013 8 10:33 AM PLANT TECHNICIAN R/O COVID-19 12/25/2019 12/25/2019 12/26/2019 2:46 PM CDT R/O COVID-19 05/09/2020 05/09/2020 05/09/2020 12:1 7 PM PLANT TECHNICIAN documented as of this encounter Care Teams Securities Compliance Examiner Relationship Specialty Start Date End Date Dara Tavera FNP [address] [place] [phone] PCP - General NURSE PRACTITIONER 10/13/18 documented as of this encounter
--- OUTSIDE RECORDS SUMMARY | 2025-02-09 23:01 | XMS_ITS | Encounter Summary ---
Author Organization [facility] Address [address] [place] [address] Care Team Providers Care Traffic Technician Name Role Phone Dara Tavera Primary Care Provider Encounter Details Date Type Department Care Team (Latest Contact Info) Description 11/17/2005 Outpatient Historical [facility] [address] [place] [address] AMBULANCE, [facility] Non-Healing Surgical Wound (Primary Dx) Social History Tobacco Use Types Packs/Day Years Used Date Smoking Tobacco: Never Assessed Comments Unknown Sex and Gender Information Value Date Recorded Sex Assigned at Not on file Legal Sex Female 5:22 AM FILLER FEEDER Gender Identity Not on file Sexual Orientation Not on file documented as of this encounter Plan of Treatment Not on file documented as of this encounter Visit Diagnoses Diagnosis Non-healing surgical wound- Primary documented in this encounter Additional Health Concerns Infection Onset Date Last Indicated Resolved Time VRE Comment:Urine 10/30/13 Resolved 11/04/2013 11/04/2013 8 10:33 AM FILLER FEEDER R/O COVID-19 12/25/2019 12/25/2019 12/26/2019 2:46 PM CDT R/O COVID-19 05/09/2020 05/09/2020 05/09/2020 12:1 7 PM FILLER FEEDER documented as of this encounter Care Teams Traffic Technician Relationship Specialty Start Date End Date Dara Tavera FNP [address] [place] [phone] PCP - General NURSE PRACTITIONER 10/13/18 documented as of this encounter
--- OUTSIDE RECORDS SUMMARY | 2025-02-09 23:01 | XMS_ITS | Encounter Summary ---
Author Organization [facility] Address [address] [place] [address] Care Team Providers Care Gis Database Administrator Name Role Phone Dara Tavera Primary Care Provider Encounter Details Date Type Department Care Team (Latest Contact Info) Description 04/15/2006 Outpatient Historical [facility] [address] [place] [address] AMBULANCE, [facility] Unspecified Nonpsychotic Mental Disorder (Primary Dx) Social History Tobacco Use Types Packs/Day Years Used Date Smoking Tobacco: Never Assessed Comments Unknown Sex and Gender Information Value Date Recorded Sex Assigned at Not on file Legal Sex Female 5:22 AM INTERNATIONAL EXCHANGE COORDINATOR Gender Identity Not on file Sexual Orientation Not on file documented as of this encounter Plan of Treatment Not on file documented as of this encounter Visit Diagnoses Diagnosis Unspecified nonpsychotic mental disorder- Primary documented in this encounter Additional Health Concerns Infection Onset Date Last Indicated Resolved Time VRE Comment:Urine 10/30/13 Resolved 11/04/2013 11/04/2013 8 10:33 AM INTERNATIONAL EXCHANGE COORDINATOR R/O COVID-19 12/25/2019 12/25/2019 12/26/2019 2:46 PM CDT R/O COVID-19 05/09/2020 05/09/2020 05/09/2020 12:1 7 PM INTERNATIONAL EXCHANGE COORDINATOR documented as of this encounter Care Teams Gis Database Administrator Relationship Specialty Start Date End Date Dara Tavera FNP [address] [place] [phone] PCP - General NURSE PRACTITIONER 10/13/18 documented as of this encounter
--- OUTSIDE RECORDS SUMMARY | 2025-02-09 23:01 | XMS_ITS | Encounter Summary ---
Author Organization [facility] Address [address] [place] [address] Care Team Providers Care Weigher Bulker Name Role Phone Dara Tavera Primary Care Provider Encounter Details Date Type Department Care Team (Latest Contact Info) Description 12/24/2005 Outpatient Historical [facility] [address] [place] [address] AMBULANCE, [facility] Open Wnd Anterior Abdomen (Primary Dx) Social History Tobacco Use Types Packs/Day Years Used Date Smoking Tobacco: Never Assessed Comments Unknown Sex and Gender Information Value Date Recorded Sex Assigned at Not on file Legal Sex Female 5:22 AM GOLF STARTER AND RANGER Gender Identity Not on file Sexual Orientation Not on file documented as of this encounter Plan of Treatment Not on file documented as of this encounter Visit Diagnoses Diagnosis Open wound of abdominal wall, anterior, without mention of complication- Primary documented in this encounter Additional Health Concerns Infection Onset Date Last Indicated Resolved Time VRE Comment:Urine 10/30/13 Resolved 11/04/2013 11/04/2013 8 10:33 AM GOLF STARTER AND RANGER R/O COVID-19 12/25/2019 12/25/2019 12/26/2019 2:46 PM CDT R/O COVID-19 05/09/2020 05/09/2020 05/09/2020 12:1 7 PM GOLF STARTER AND RANGER documented as of this encounter Care Teams Weigher Bulker Relationship Specialty Start Date End Date Dara Tavera FNP [address] [place] [phone] PCP - General NURSE PRACTITIONER 10/13/18 documented as of this encounter
--- OUTSIDE RECORDS SUMMARY | 2025-02-09 23:01 | XMS_ITS | Encounter Summary ---
Author Organization [facility] Address [address] [place] [address] Care Team Providers Care Flame Annealing Machine Setter Name Role Phone Dara Tavera Primary Care Provider Encounter Details Date Type Department Care Team (Late st Contact Info) Description 04/03/2007 Outpatient [facility] [address] [place] [address] AMBULANCE, [facility] Other Chest Pain (Primary Dx) Social History Tobacco Use Types Packs/Day Years Used Date Smoking Tobacco: Never Assessed Comments Unknown Sex and Gender Information Value Date Recorded Sex Assigned at Not on file Legal Sex Female 5:22 AM AGRICULTURAL EXTENSION EDUCATOR Gender Identity Not on file Sexual Orientation Not on file documented as of this encounter Plan of Treatment Not on file documented as of this encounter Visit Diagnoses Diagnosis Other chest pain- Primary documented in this encounter Additional Health Concerns Infection Onset Date Last Indicated Resolved Time VRE Comment:Urine 10/30/13 Resolved 11/04/2013 11/04/2013 8 10:33 AM AGRICULTURAL EXTENSION EDUCATOR R/O COVID-19 12/25/2019 12/25/2019 12/26/2019 2:46 PM CDT R/O COVID-19 05/09/2020 05/09/2020 05/09/2020 12:1 7 PM AGRICULTURAL EXTENSION EDUCATOR documented as of this encounter Care Teams Flame Annealing Machine Setter Relationship Specialty Start Date End Date Dara Tavera FNP [address] [place] [phone] PCP - General NURSE PRACTITIONER 10/13/18 documented as of this encounter
--- OUTSIDE RECORDS SUMMARY | 2025-02-09 23:01 | XMS_ITS | Encounter Summary ---
Author Organization [facility] Address [address] [place] [address] Care Team Providers Care Suspect Artist Name Role Phone Dara Tavera Primary Care Provider Encounter Details Date Type Department Care Team (Latest Contact Info) Description 03/05/2006 Outpatient Historical [facility] [address] [place] [address] AMBULANCE, [facility] Other Malaise and Fatigue (Primary Dx) Social History Tobacco Use Types Packs/Day Years Used Date Smoking Tobacco: Never Assessed Comments Unknown Sex and Gender Information Value Date Recorded Sex Assigned at Not on file Legal Sex Female 5:22 AM PAST DUE ACCOUNTS CLERK Gender Identity Not on file Sexual Orientation Not on file documented as of this encounter Plan of Treatment Not on file documented as of this encounter Visit Diagnoses Diagnosis Other malaise and fatigue- Primary documented in this encounter Additional Health Concerns Infection Onset Date Last Indicated Resolved Time VRE Comment:Urine 10/30/13 Resolved 11/04/2013 11/04/2013 8 10:33 AM PAST DUE ACCOUNTS CLERK R/O COVID-19 12/25/2019 12/25/2019 12/26/2019 2:46 PM CDT R/O COVID-19 05/09/2020 05/09/2020 05/09/2020 12:1 7 PM PAST DUE ACCOUNTS CLERK documented as of this encounter Care Teams Suspect Artist Relationship Specialty Start Date End Date Dara Tavera FNP [address] [place] [phone] PCP - General NURSE PRACTITIONER 10/13/18 documented as of this encounter
--- OUTSIDE RECORDS SUMMARY | 2025-02-09 23:01 | XMS_ITS | Encounter Summary ---
Author Organization [facility] Address [address] [place] [address] Care Team Providers Care Food Service Technician Name Role Phone Dara Tavera Primary Care Provider Encounter Details Date Type Department Care Team (Latest Contact Info) Description 03/15/2006 Outpatient Historical [facility] [place] [address] [facility] [address] [place] [address] Faiza Petersen MD NO ADDRESS ON FILE Open Wnd Anterior Abdomen (Primary Dx); Obesity, Unspecified Social History Tobacco Use Types Packs/Day Years Used Date Smoking Tobacco: Never Assessed Comments Unknown Sex and Gender Information Value Date Recorded Sex Assigned at Not on file Legal Sex Female 5:22 AM MANAGER SYSTEMS Gender Identity Not on file Sexual Orientation Not on file documented as of this encounter Plan of Treatment Not on file documented as of this encounter Visit Diagnoses Diagnosis Open wound of abdominal wall, anterior, without mention of complication- Primary Obesity, unspecified documented in this encounter Additional Health Concerns Infection Onset Date Last Indicated Resolved Time VRE Comment:Urine 10/30/13 Resolved 11/04/2013 11/04/2013 8 10:33 AM MANAGER SYSTEMS R/O COVID-19 12/25/2019 12/25/2019 12/26/2019 2:46 PM CDT R/O COVID-19 05/09/2020 05/09/2020 05/09/2020 12:1 7 PM MANAGER SYSTEMS documented as of this encounter Care Teams Food Service Technician Relationship Specialty Start Date End Date Dara Tavera FNP [address] [place] [address] PCP - General NURSE PRACTITIONER 10/13/18 documented as of this encounter
--- OUTSIDE RECORDS SUMMARY | 2025-02-09 23:01 | XMS_ITS | Encounter Summary ---
Author Organization [facility] Address [address] [place] [address] Care Team Providers Care Continuous Process Coffee Roaster Name Role Phone Dara Tavera Primary Care Provider Encounter Details Date Type Department Care Team (Latest Contact Info) Description 02/26/2007 Outpatient Historical [facility] [address] [place] [address] AMBULANCE, [facility] Abdominal Pain, Unspecified Site (Primary Dx) Social History Tobacco Use Types Packs/Day Years Used Date Smoking Tobacco: Never Assessed Comments Unknown Sex and Gender Information Value Date Recorded Sex Assigned at Not on file Legal Sex Female 5:22 AM CLOTHING TRADES WORKERS Gender Identity Not on file Sexual Orientation Not on file documented as of this encounter Plan of Treatment Not on file documented as of this encounter Visit Diagnoses Diagnosis Abdominal pain, unspecified site- Primary documented in this encounter Additional Health Concerns Infection Onset Date Last Indicated Resolved Time VRE Comment:Urine 10/30/13 Resolved 11/04/2013 11/04/2013 8 10:33 AM CLOTHING TRADES WORKERS R/O COVID-19 12/25/2019 12/25/2019 12/26/2019 2:46 PM CDT R/O COVID-19 05/09/2020 05/09/2020 05/09/2020 12:1 7 PM CLOTHING TRADES WORKERS documented as of this encounter Care Teams Continuous Process Coffee Roaster Relationship Specialty Start Date End Date Dara Tavera FNP [address] [place] [phone] PCP - General NURSE PRACTITIONER 10/13/18 documented as of this encounter
--- OUTSIDE RECORDS SUMMARY | 2025-02-09 23:01 | XMS_ITS | Clinical Summary ---
Author Organization [facility] [place] Address [address] [place] [address] Care Team Providers Care Hospice Team Lead Name Role Phone Dara Tavera CRYSTALLIZER OPERATOR Primary Care Provider Allergies Active Allergy Reactions Criticality Noted Date Comments Adhesive Rash Low 02/12/2009 Codeine Nausea and Vomiting Low 02/12/2009 Duloxetine Other (See Comments) 02/24/2015 Fentanyl Hives High 11/07/2019 Fluoxetine Unknown 10/20/2018 Gabapentin Unknown,Hallucination Low 02/12/2009 Influenza Virus Vaccine Qv [id number] (36 Mos+) Other (See Comments) 06/19/2014 pneumonia Ketorolac Tromethamine Other (See Comments) Low Adverse drug reaction [place] Unknown 02/12/2009 Other reaction(s): shakey Penicillins Rash Low 10/21/2011 Pneumococcal 23-Mee Ps Vaccine Other (See Comments) 03/10/2015 Pt stated the pneumonia vaccine gave her pneumonia. Risperidone Other (See Comments) 09/23/2015 Unwanted facial movements Tetracycline Hives High 02/12/2009 Tetracyclines Rash Low 02/24/2015 Tramadol Hives,Other (See Comments),Nausea and Vomiting High 09/21/2009 Ziprasidone Hcl Hallucination Low 02/12/2009 Medications pantoprazole (PROTONIX) 40 mg Tablet, Delayed Release (E.C.) Take 40 mg by mouth 2 times daily. Active albuterol (PROVENTIL,JOSHUA LILY) 2.5 mg /3 mL (0.083 %) Solution for Nebulization Take 3 mL (2.5 mg) by inhalation every 4 hours as needed for Shortness of Breath or Wheezing. 120 mL 9 Active fluticasone propionate (FLONASE) 50 mcg/spray [place], Suspension nasal inhaler Administer 2 Sprays in each nostril daily. Active lamoTRIgine (LaMICtal) 200 mg tablet Take 200 mg by mouth daily. Active traZODone (DESYREL) 100 mg tablet Take 200 mg by mouth daily at bedtime. Active hydrOXYzine pamoate (VISTARIL) 50 mg capsule Take 50 mg by mouth 4 times daily as needed for Anxiety or Itching. Active LORazepam (ATIVAN) 0.5 mg tablet Take 0.5 mg by mouth 1 time daily as needed for Anxiety. Active albuterol HFA 90 mcg inhaler Use 4 puffs every 4 hours as needed but sooner if necessary. 8.5 Gram 0 Active acetaminophen (TYLENOL) 500 mg tablet Take 2 Tablets (1,000 mg) by mouth every 8 hours as needed. 0 Active oxygen home delivery Home Oxygen Concentrator yes at 2 L/M Rest, 2 L/M Activity, 2 L/M Sleep, Delivery Device: Nasal Cannula Portability: yes, 2 L/M Rest, 2 L/M Activity, May evaluate for device best for patient needs(E system,home fill, conserving device) Maintain Sats: > OR = 90%, Length of Need: 99 months 1 Each 0 Active promethazine (Phenergan) 25 mg Suppository Insert 25 mg by rectum every 12 hours as needed for Nausea/Emesis. Active valbenazine (Ingrezza) 80 mg Capsule Take 80 mg by mouth daily. 30 Capsule 0 Active guar gum (BENEFIBER) Packet Take 1 Packet by mouth. Active fluticasone furoate-vilanter oL (Breo Ellipta) 200-25 mcg/dose Disk with Device Take 1 Puff by inhalation daily. Active ondansetron (ZOFRAN ODT) 4 mg Tablet, Rapid Dissolve Take 1 Tablet (4 mg) by mouth every 6 hours as needed for Nausea/Emesis. Dissolve tablet on top of tongue, then swallow with saliva. 12 Tablet 1 1 Active escitalopram oxalate (LEXAPRO) 10 mg tablet Take 10 mg by mouth daily. Active OLANZapine (ZyPREXA ZYDIS) 10 mg Tablet, Rapid Dissolve Place 10 mg inside cheek daily at bedtime. Active Active Problems Problem Noted Date Diagnosed Date Acute on chronic systolic heart failure 04/27/20 20 Erosive esophagitis 04/26/2020 Bandemia 04/26/2020 Schizoaffective disorder with good prognostic fe atures 11/27/2019 Elevated C-reactive protein (CRP) 06/13/2019 Hematuria 06/13/2019 History of atrial fibrillation 06/13/2019 HTN (hypertension), benign 06/13/2019 HLD (hyperlipidemia) 06/13/2019 IBS (irritable bowel syndrome) 06/13/2019 PTSD (post-traumatic stress disorder) 06/13/2019 Drug-seeking behavior 06/13/2019 History of seizure disorder 06/13/2019 Pyelonephritis 05/21/2019 Lactic acidosis 05/19/2019 Hypokalemia 05/19/2019 ANEUDY (acute kidney injury) 05/19/2019 Interstitial edema 02/28/2019 Overactive bladder 06/17/2018 Tobacco abuse 07/23/2017 Cigarette dependence 03/23/2015 Flank pain 12/10/2014 COPD (chronic obstructive pulmonary disease) Bipolar affective disorder 04/10/2014 Depression 10/07/2013 Anxiety 10/07/2013 GERD (gastroesophageal reflux disease) 1 Leukocytosis (leucocytosis) 02/12/2009 Resolved Problems Problem Noted Date Diagnosed Date Resolved Date Sepsis 06/17/2018 09/08/2018 Hypotension 06/17/2018 09/08/2018 Chronic respiratory failure 06/17/2018 09/08/2018 Pneumonia 06/17/2018 09/08/2018 Rash 06/17/2018 09/08/2018 Overview (06/17/2018): Noted below skin folds of breasts-appear fungal given appearance/location. Nystatin powder ordered. Pneumonia of right lower lob e due to infectious organism 02/07/2018 09/08/2018 Probable sepsis 02/07/2018 09/08/2018 HCAP (healthcare-associated pneumonia) 07/26/2017 02/07/2018 Dyspnea on exertion 07/26/2017 09/09/19 19 Increased anion gap metabolic acidosis 07/24/2017 02/07/2018 Severe sepsis 07/24/2017 02/07/2018 Vancomycin resistant Enterococcus 07/23/2017 07/23/2017 Overview (07/23/2017): Urine Hyperglycemia, drug-induced 07/23/2017 09/08/2018 Overview (07/23/2017): Steroids, mild. COPD with acute lower respiratory infection 07/22/2017 02/07/2018 Pneumonia, organism unspecified(486) 03/06/2015 02/07/2018 Hyponatremia 03/06/2015 03/07/2015 Chronic headache disorder 03/06/2015 Lymphocytosis 03/06/2015 09/08/2018 BRBPR (bright red blood per rectum) 12/10/2014 07/23/2017 Nausea & vomiting 12/10/2014 07/23/2017 High risk for readmission 12/10/2014 Influenza A 04/07/2014 12/10/2014 Hypoxia 04/07/2014 12/10/2014 Acute respiratory failure 04/07/2014 VRE (vancomycin resistant en terococcus) culture positive 10/30/2013 11/13/2013 COPD with exacerbation 10/07/201309/08 Acute bronchitis with bronchospasm 10/07/2013 04/06/2014 Overview (11/13/2013): Possible pneumonia Acute respiratory failure with hypoxia 10/23/2012 09/08/2018 Dyspepsia and other specifie d disorders of function of stomach 12/20/2011 04/06/2014 Dysphagia 11/05/2010 07/23/2017 Dysphagia, unspecified(787.20) 10/18/2010 04/06/2014 Abdominal pain, epigastric 10/18/2010 0 11/13/2013 Hidradenitis 08/10/2009 11/13/2013 Polypharmacy 08/10/2009 09/08/2018 Hematochezia 07/07/2009 10/26/2012 Hematemesis/vomiting blood 07/07/2009 0 10/26/2012 Personal history of MRSA (nm thicillin resistant Staphylococcus aureus) 06/27/2009 018 Overview (07/23/2017): Under the arm abscess ~ 2014 Hypoxemia 02/12/2009 04/06/2014 Fever and chills 02/12/2009 10/26/2012 Immunizations Immunization Administration Dates Next Due (PNEUMOVAX 23)(50 YRS UP) PN EUMOCOCCAL POLYSACCHARIDE (PPV23) 0.5 ML, IM 06/22/2007 Hepatitis B Vaccine 12/29/1997 Influenza Seasonal Unspecifi ed Formulation IM 02/19/2014,02/17/2013,03/07/2012,06/22 Pneumococcal conjugate, unsp ecified formulation 03/07/2012 Family History Medical History Relation Name Comments Asthma Father Heart Disease Father Hypertension Father Lung Cancer Father Other Father Respiratory Disease Father Colon Cancer Maternal Aunt 1 Other Maternal Aunt 2 Diabetes Maternal Grandmother Hypertension Maternal Grandmother Healthy Mother Relation Name Status Comments Brother Father Alive Maternal Aunt 1 Maternal Aunt 2 mental illne ss Maternal Grandmother Mother Alive Social History Tobacco Use Types Packs/Day Years Used Date Smoking Tobacco: Every Day Cigarettes 0.3 25 Started: 05/02/1995; Last attempted to quit: 05/02/2020 Smokeless Tobacco: Never Tobacco Cessation:Ready to Q uit: Yes; Counseling Given: Yes Alcohol Use Standard Drinks/Week Comments No 0 [...] asked 05/05/2019 How often do you attend pentecostal or protestant serv ices? Not asked 05/05/2019 Do you belong to any clubs o r organizations such as pentecostal groups, unions, fraternal or athletic groups, or school groups? Not asked 05/05/2019 How often do you attend meet ings of the clubs or organizations you belong to? Not asked 05/05/2019 Are you , , di vorced, , never , or living with a partner? Not asked 05/05/2019 Comments No Sex and Gender Information Value Date Recorded Sex Assigned at Not on file Legal Sex Female 5:22 AM ELEVATOR DISPATCHER Gender Identity Not on file Sexual Orientation Not on file Occupation Industry Job Start Date Job End Date Not on file Not on file Not on file Not on file Not on file Not on file Not on file Not on file Last Filed Vital Signs Vital Sign Reading Time Taken Comments Blood Pressure 105/78 12/13/2020 5:06 PM CDT Pulse 87 12/08/2020 10:00 PM CDT Temperature 36.8 C (98.3 F) 12/13/2020 3:08 PM CDT Respiratory Rate 15 12/13/2020 5:06 PM CDT Oxygen Saturation 97% 12/13/2020 5:06 PM CDT Inhaled Oxygen Concentration - - Weight 93 kg (205 lb) 12/13/2020 12:01 PM CDT Height 165.1 cm (5' 5 ) 12/13/2020 12:01 PM CDT Body Mass Index 34.11 12/13/2020 12:01 PM CDT Plan of Treatment Health Maintenance Due Date Last Done Comments DTAP/TDAP/TD VACCINES (1 - Tdap) 11/10/1986 HEPATITIS B VACCINES (1 of 3 - 19+ 3-dose series) 11/10/1986 12/29/1997 HPV/Cotest (21-29) 11/10/1988 CERVICAL CANCER SCREENING 11/10/1997 HPV/Cotest (30-65) 11/10/1997 PAP SMEAR 11/10/1997 BREAST CANCER SCREENING 2007 FIT-DNA Q 3 years 11/10/2012 FIT/FOBT Q 1 year 11/10/2012 Flex Sig/CT Colonography Q 5 years 11/10/2012 ZOSTER VACCINE (1 of 2) 11/10/2017 COLORECTAL SCREENING 01/12/2022 01/12/2017 Colorectal Cancer Screening 01/12/2022 INFLUENZA VACCINE (#1) 2025 4, 02/17/2013, 03/07/2012, Additional history exists Insurance MEDICARE PART A AND B [place] Advance Directives For more information, please contact: [phone] Documents on File Type Date Recorded Patient Telephone Coin Box Collector Expl anation Advance Directive Living Will 03/11/2015 6:58 AM Advance Directive Living Will Advance Directive Living Will 03/09/2015 11:27 AM Advance Directive Living Will Advance Directive POA 04/07/2014 11:13 AM Advance Directive POA * Full Code (Latest Code Status on File) Date Activated Date Inactivated Comments 04/26/2020 5:13 PM 04/28/2020 2:21 PM * Full Code Date Activated Date Inactivated Comments 07/23/2019 11:21 AM 07/25/2019 2:38 PM * Full Code Date Activated Date Inactivated Comments 06/13/2019 9:10 PM 06/15/2019 4:06 PM * Full Code Date Activated Date Inactivated Comments 05/21/2019 9:40 PM 05/24/2019 6:39 PM * Full Code Date Activated Date Inactivated Comments 06/17/2018 6:26 AM 06/22/2018 8:41 PM Care Teams Hospice Team Lead Relationship Specialty Start Date End Date Dara Tavera FNP [address] [place] [phone] PCP - General NURSE PRACTITIONER 10/13/18
--- OUTSIDE RECORDS SUMMARY | 2025-02-09 23:01 | XMS_ITS | Encounter Summary ---
Author Organization [facility] Address [address] [place] [address] Care Team Providers Care Manager Car Name Role Phone Dara Tavera AMANDEEP Primary Care Provider Encounter Details Date Type Department Care Team (Late st Contact Info) Description 04/04/2007 Emergency [facility] Emergency Department [address] [place] [address] Sammi Justice MD [address] [facility] [address] [place] [address] Unspecified Chest Pain (Primary Dx) Social History Tobacco Use Types Packs/Day Years Used Date Smoking Tobacco: Never Assessed Comments Unknown Sex and Gender Information Value Date Recorded Sex Assigned at Not on file Legal Sex Female 5:22 AM INSTRUCTIONAL ASSISTANT Gender Identity Not on file Sexual Orientation Not on file documented as of this encounter Plan of Treatment Not on file documented as of this encounter Procedures Procedure Name Priority Date/Time Associated Diagnosis Comments CARDIAC ENZYMES Routine 04/04/2007 1:03 AM CDT CBC WITH DIFFERENTIAL Routine 04/04/2007 1:03 AM CDT PTT Routine 04/04/2007 1:03 AM CDT PROTIME-INR Routine 04/04/2007 1:03 AM CDT D-DIMER Routine 04/04/2007 1:03 AM CDT BASIC METABOLIC PANEL Routine 04/04/2007 1:03 AM CDT documented in this encounter Results * (ABNORMAL) CBC WITH DIFFERENTIAL (04/04/2007 1:03 AM CDT) WBC 12.8(H) 4.5 - 11.0 K/ul INTERFACE SYSTEM RBC 4.43 4.20 - 5.40 Mil/ul INTERFACE SYSTEM HEMOGLOBIN 13.5 12.0 - 16.0 g/dL INTERFACE SYSTEM HEMATOCRIT 39.2 36.0 - 46.0 % INTERFACE SYSTEM MCV 88.5 84.0 - 103.0 Fl INTERFACE SYSTEM MCH 30.5 27.0 - 34.0 pg INTERFACE SYSTEM MCHC 34.4 30.0 - 35.0 g/dL INTERFACE SYSTEM RDW 14.8(H) 11.0 - 14.5 % INTERFACE SYSTEM PLATELETS 193 140 - 440 K/ul INTERFACE SYSTEM MPV 10.4 8.9 - 12.8 Fl INTERFACE SYSTEM NEUTROPHILS 61.4 42.2 - 75.2 % INTERFACE SYSTEM LYMPHOCYTES 26.8 24.0 - 44.0 % INTERFACE SYSTEM MONOCYTES 8.9 2.0 - 10.0 % INTERFACE SYSTEM EOSINOPHILS 2.5 0.0 - 7.0 % INTERFACE SYSTEM BASOPHILS 0.4 0.0 - 1.0 % INTERFACE SYSTEM NEUTROPHIL ABSOLUTE 7.9 2.0 - 8.0 K/ul INTERFACE SYSTEM LYMPHOCYTE ABSOLUTE 3.4 1.2 - 4.0 K/ul INTERFACE SYSTEM MONOCYTE ABSOLUTE 1.1(H) 0.1 - 0.6 K/ul INTERFACE SYSTEM EOSINOPHIL ABSOLUTE 0.3 0.0 - 0.7 K/ul INTERFACE SYSTEM BASOPHILS ABSOLUTE 0.1 0.0 - 0.2 K/ul INTERFACE SYSTEM 04/04/2007 1:03 AM CDT us Sammi Justice MD HEMATOLOGY ORDERABLES Edite d INTERFACE SYSTEM Refer to clinic/hospital department * D-DIMER (04/04/2007 1:03 AM CDT) D-DIMER QUANT 0.2 0.0 - 0.5 mcg/mL INTERFACE SYSTEM 04/04/2007 1:03 AM CDT Sammi Justice MD HEMATOLOGY ORDERABLES Edite d Performing Organization Address [facility] Phone Number INTERFACE SYSTEM Refer to clinic/hospital department * PTT (04/04/2007 1:03 AM CDT) PTT 31.3 21.6 - 35.6 Secs INTERFACE SYSTEM Comment: Therapeutic Range: Hi-level PE/DVT heparin protocol 80.1 -95.0 sec Lo-level PE/DVT heparin protocol 67.1 - 80.0 sec Cardiac Heparin Protocol 67.1 - 85.0 sec Neuro Heparin Protocol 67.1 - 80.0 sec As of 05/25/2006 note change in APTT Normal Range. 04/04/2007 1:03 AM CDT Sammi Justice MD HEMATOLOGY ORDERABLES Edite d Performing Organization Address [facility] Phone Number INTERFACE SYSTEM Refer to clinic/hospital department * PROTIME-INR (04/04/2007 1:03 AM CDT) PROTIME 13.5 13.0 - 15.7 Secs INTERFACE SYSTEM Comment: As of 06 note change in normal range. INR 0.9 INTERFACE SYSTEM Comment: Expected Values for INR: DVT/PE Goal INR 2.5; range 2.0 - 3.0 Valve Replacement Tissue Goal INR 2.5; range 2.0 - 3.0 Mechanical Goal INR 3.0; range 2.5 - 3.5 POST-MD Goal INR 2.5; range 2.0 - 3.0 or Goal 3.0; range 2.5 - 3.5 Atrial Fibrillation Goal INR 2.5; range 2.0 - 3.0 Ischemic Stroke Goal INR 2.5; range 2.0 - 3.0 For additional information see Guidelines for Anticoagulation available from the pharmacy [facility]. 04/04/2007 1:03 AM CDT Sammi Justice MD HEMATOLOGY ORDERABLES Edite d Performing Organization Address [facility] Phone Number INTERFACE SYSTEM Refer to clinic/hospital department * (ABNORMAL) BASIC METABOLIC PANEL (04/04/2007 1:03 AM CDT) GLUCOSE 120(H) 70 - 110 mg/dL INTERFACE SYSTEM BUN 18(H) 7 - 17 mg/dL INTERFACE SYSTEM CREATININE 0.9 0.7 - 1.2 mg/dL INTERFACE SYSTEM SODIUM 140 136 - 145 mEq/L INTERFACE SYSTEM POTASSIUM 3.5 3.5 - 5.0 mEq/L INTERFACE SYSTEM CHLORIDE 111(H) 95 - 110 mEq/L INTERFACE SYSTEM CO2 18(L) 22 - 32 mmol/l INTERFACE SYSTEM CALCIUM 8.9 8.4 - 10.5 mg/dL INTERFACE SYSTEM ANION GAP 15 9 - 20 mEq/L INTERFACE SYSTEM OSMOLALITY, CALCULATED 290 275 - 295 mOsm/Kg INTERFACE SYSTEM 04/04/2007 1:03 AM CDT Sammi Justice MD CHEMISTRY ORDERABLES Edited Performing Organization Address [facility] Phone Number INTERFACE SYSTEM Refer to clinic/hospital department * CARDIAC ENZYMES (04/04/2007 1:03 AM CDT) TROPONIN I <0.1 0.0 - 1.3 ng/mL INTERFACE SYSTEM Comment: As of 06 the Troponin Reference Range has changed from 0.0-1.5 ng/ml to 0.0- 1.3 ng/ml due to a change in testing methodology. 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
--- OUTSIDE RECORDS SUMMARY | 2025-02-09 23:01 | XMS_ITS | Encounter Summary ---
Author Organization [facility] Address [address] [place] [address] Care Team Providers Care Geriatric Nursing Assistant Name Role Phone Dara Tavera Primary Care Provider Encounter Details Date Type Department Care Team (Latest Contact Info) Description 03/15/2006 Outpatient Historical [facility] [address] [place] [address] AMBULANCE, [facility] Other Injury of Abdomen (Primary Dx) Social History Tobacco Use Types Packs/Day Years Used Date Smoking Tobacco: Never Assessed Comments Unknown Sex and Gender Information Value Date Recorded Sex Assigned at Not on file Legal Sex Female 5:[address] OPERATOR Gender Identity Not on file Sexual Orientation Not on file documented as of this encounter Plan of Treatment Not on file documented as of this encounter Visit Diagnoses Diagnosis Other injury of abdomen- Primary documented in this encounter Additional Health Concerns Infection Onset Date Last Indicated Resolved Time VRE Comment:Urine 10/30/13 Resolved 11/04/2013 11/04/2013 8 10:[address] OPERATOR R/O COVID-19 12/25/2019 12/25/2019 12/26/2019 2:46 PM CDT R/O COVID-19 05/09/2020 05/09/2020 05/09/2020 12:[address] HOGGER OPERATOR documented as of this encounter Care Teams Geriatric Nursing Assistant Relationship Specialty Start Date End Date Dara Tavera FNP [address] [place] [phone] PCP - General NURSE PRACTITIONER 4/27/19 documented as of this encounter
--- OUTSIDE RECORDS SUMMARY | 2025-02-09 23:01 | XMS_ITS | Encounter Summary ---
Author Organization [facility] Address [address] [place] [address] Care Team Providers Care Windsurfing Instructor Name Role Phone Dara Tavera Primary Care Provider [phone] Encounter Details Date Type Department Care Team (Latest Contact Info) Description 08/21/2005 Outpatient Historical [facility] [address] [place] [address] AMBULANCE, [facility] DISRUPT OF EXTERNAL OPERATION WOUND (Primary Dx) Social History Tobacco Use Types Packs/Day Years Used Date Smoking Tobacco: Never Assessed Comments Unknown Sex and Gender Information Value Date Recorded Sex Assigned at Not on file Legal Sex Female 5:22 AM WICKER WORKER Gender Identity Not on file Sexual Orientation Not on file documented as of this encounter Plan of Treatment Not on file documented as of this encounter Visit Diagnoses Diagnosis Disruption of external operation (surgical) wound- Primary documented in this encounter Additional Health Concerns Infection Onset Date Last Indicated Resolved Time VRE Comment:Urine 10/30/13 Resolved 11/04/2013 11/04/2013 8 10:33 AM WICKER WORKER R/O COVID-19 12/25/2019 12/25/2019 12/26/2019 2:46 PM CDT R/O COVID-19 05/09/2020 05/09/2020 05/09/2020 12:1 7 PM WICKER WORKER documented as of this encounter Care Teams Windsurfing Instructor Relationship Specialty Start Date End Date Dara Tavera FNP [address] [place] [phone] PCP - General NURSE PRACTITIONER 10/13/18 documented as of this encounter
--- OUTSIDE RECORDS SUMMARY | 2025-02-09 23:01 | XMS_ITS | Encounter Summary ---
Author Organization [facility] Address [address] [place] [address] Care Team Providers Care Daycare Assistant Name Role Phone Dara Tavera Primary Care Provider Encounter Details Date Type Department Care Team (Latest Contact Info) Description 04/07/2006 Outpatient Historical [facility] [address] [place] [address] AMBULANCE, [facility] Other Convulsions (CMS/HCC) (Primary Dx) Social History Tobacco Use Types Packs/Day Years Used Date Smoking Tobacco: Never Assessed Comments Unknown Sex and Gender Information Value Date Recorded Sex Assigned at Not on file Legal Sex Female 5:22 AM CHARGING MANIPULATOR Gender Identity Not on file Sexual Orientation Not on file documented as of this encounter Plan of Treatment Not on file documented as of this encounter Visit Diagnoses Diagnosis Other convulsions- Primary documented in this encounter Additional Health Concerns Infection Onset Date Last Indicated Resolved Time VRE Comment:Urine 10/30/13 Resolved 11/04/2013 11/04/2013 8 10:33 AM CHARGING MANIPULATOR R/O COVID-19 12/25/2019 12/25/2019 12/26/2019 2:46 PM CDT R/O COVID-19 05/09/2020 05/09/2020 05/09/2020 12:1 7 PM CHARGING MANIPULATOR documented as of this encounter Care Teams Daycare Assistant Relationship Specialty Start Date End Date Dara Tavera FNP [address] [place] [phone] PCP - General NURSE PRACTITIONER 10/13/18 documented as of this encounter
--- OUTSIDE RECORDS SUMMARY | 2025-02-09 23:01 | XMS_ITS | Encounter Summary ---
Author Organization [facility] Address [address] [place] [address] Care Team Providers Care Ssn/Ssbn Assistant Navigator Name Role Phone Dara Tavera Primary Care Provider Encounter Details Date Type Department Care Team (Latest Contact Info) Description 03/06/2006 Outpatient Historical [facility] [address] [place] [address] AMBULANCE, [facility] Other Convulsions (CMS/HCC) (Primary Dx) Social History Tobacco Use Types Packs/Day Years Used Date Smoking Tobacco: Never Assessed Comments Unknown Sex and Gender Information Value Date Recorded Sex Assigned at Not on file Legal Sex Female 5:22 AM HOPPER FEEDER Gender Identity Not on file Sexual Orientation Not on file documented as of this encounter Plan of Treatment Not on file documented as of this encounter Visit Diagnoses Diagnosis Other convulsions- Primary documented in this encounter Additional Health Concerns Infection Onset Date Last Indicated Resolved Time VRE Comment:Urine 10/30/13 Resolved 11/04/2013 11/04/2013 8 10:33 AM HOPPER FEEDER R/O COVID-19 12/25/2019 12/25/2019 12/26/2019 2:46 PM CDT R/O COVID-19 05/09/2020 05/09/2020 05/09/2020 12:1 7 PM HOPPER FEEDER documented as of this encounter Care Teams Ssn/Ssbn Assistant Navigator Relationship Specialty Start Date End Date Dara Tavera FNP [address] [place] [phone] PCP - General NURSE PRACTITIONER 10/13/18 documented as of this encounter
--- OUTSIDE RECORDS SUMMARY | 2025-02-09 23:01 | XMS_ITS | Encounter Summary ---
Author Organization [facility] Address [address] [place] [address] Care Team Providers Care Apparel Pattern Maker Name Role Phone Dara Tavera MACHINE SNELLER Primary Care Provider Encounter Details Date Type Department Care Team (Late st Contact Info) Description 06/17/2007 Outpatient Historical [facility] IN BED Sammi Justice MD [address] [place] [address] Murphy Espitia MD NO ADDRESS ON FILE BrotherHerman MD NO ADDRESS ON FILE Unspecified Asthma, with Exacerbation; Bipolar Affective, Depress, Unspec (CMS/HCC); Tobacco Use Disorder; Obesity, Unspecified; Hypopotassemia; Hypoxemia Social History Tobacco Use Types Packs/Day Years Used Date Smoking Tobacco: Never Assessed Comments Unknown Sex and Gender Information Value Date Recorded Sex Assigned at Not on file Legal Sex Female 5:22 AM CASE OPERATOR Gender Identity Not on file Sexual Orientation Not on file documented as of this encounter Plan of Treatment Not on file documented as of this encounter Procedures Procedure Name Priority Date/Time Associated Diagnosis Comments CBC WITH DIFFERENTIAL Routine 06/20/2007 4:40 AM CASE OPERATOR BASIC METABOLIC PANEL Routine 06/20/2007 4:40 AM CASE OPERATOR URINALYSIS W/REFLEX MICROSCOPIC Routine 06/19/2007 5:59 AM CASE OPERATOR CARDIAC ENZYMES Routine 06/18/2007 7:40 AM CASE OPERATOR CARDIAC ENZYMES Routine 06/18/2007 1:45 AM CASE OPERATOR CBC WITH DIFFERENTIAL Routine 06/18/2007 1:45 AM CASE OPERATOR TSH Routine 06/18/2007 1:45 AM CASE OPERATOR COMPREHENSIVE METABOLIC PANEL Routine 06/18/2007 1:45 AM CASE OPERATOR PT AND APTT Routine 06/17/2007 7:50 PM CASE OPERATOR CARDIAC ENZYMES Routine 06/17/2007 7:50 PM CASE OPERATOR CBC WITH DIFFERENTIAL Routine 06/17/2007 7:50 PM CASE OPERATOR BRAIN NATRIURETIC PEPTIDE, BNP OR PROBNP Routine 06/17/2007 7:50 PM CASE OPERATOR BASIC METABOLIC PANEL Routine 06/17/2007 7:50 PM CASE OPERATOR POC BLOOD GAS, LYTES AND H+H Routine 06/17/2007 6:48 PM CASE OPERATOR documented in this encounter Results * BASIC METABOLIC PANEL (06/20/2007 4:40 AM CASE OPERATOR) GLUCOSE 99 70 - 110 mg/dL INTERFACE SYSTEM BUN 10 7 - 17 mg/dL INTERFACE SYSTEM CREATININE 0.8 0.7 - 1.2 mg/dL INTERFACE SYSTEM SODIUM 140 136 - 145 mEq/L INTERFACE SYSTEM POTASSIUM 3.6 3.5 - 5.0 mEq/L INTERFACE SYSTEM CHLORIDE 107 95 - 110 mEq/L INTERFACE SYSTEM CO2 25 22 - 32 mmol/l INTERFACE SYSTEM CALCIUM 8.9 8.4 - 10.5 mg/dL INTERFACE SYSTEM ANION GAP 12 9 - 20 mEq/L INTERFACE SYSTEM OSMOLALITY, CALCULATED 286 275 - 295 mOsm/Kg INTERFACE SYSTEM 06/20/2007 4:40 AM CASE OPERATOR us Murphy Espitia MD CHEMISTRY ORDERABLES Edited INTERFACE SYSTEM Refer to clinic/hospital department * (ABNORMAL) CBC WITH DIFFERENTIAL (06/20/2007 4:40 AM CASE OPERATOR) WBC 10.6 4.5 - 11.0 K/ul INTERFACE SYSTEM RBC 3.65(L) 4.20 - 5.40 Mil/ul INTERFACE SYSTEM HEMOGLOBIN 10.5(L) 12.0 - 16.0 g/dL INTERFACE SYSTEM HEMATOCRIT 32.2(L) 36.0 - 46.0 % INTERFACE SYSTEM MCV 88.2 84.0 - 103.0 Fl INTERFACE SYSTEM MCH 28.8 27.0 - 34.0 pg INTERFACE SYSTEM MCHC 32.6 30.0 - 35.0 g/dL INTERFACE SYSTEM RDW 13.8 11.0 - 14.5 % INTERFACE SYSTEM PLATELETS 227 140 - 440 K/ul INTERFACE SYSTEM MPV 10.1 8.9 - 12.8 Fl INTERFACE SYSTEM NEUTROPHILS 69.6 42.2 - 75.2 % INTERFACE SYSTEM LYMPHOCYTES 19.4(L) 24.0 - 44.0 % INTERFACE SYSTEM MONOCYTES 6.0 2.0 - 10.0 % INTERFACE SYSTEM EOSINOPHILS 4.5 0.0 - 7.0 % INTERFACE SYSTEM BASOPHILS 0.5 0.0 - 1.0 % INTERFACE SYSTEM NEUTROPHIL ABSOLUTE 7.4 2.0 - 8.0 K/ul INTERFACE SYSTEM LYMPHOCYTE ABSOLUTE 2.1 1.2 - 4.0 K/ul INTERFACE SYSTEM MONOCYTE ABSOLUTE 0.6 0.1 - 0.6 K/ul INTERFACE SYSTEM EOSINOPHIL ABSOLUTE 0.5 0.0 - 0.7 K/ul INTERFACE SYSTEM BASOPHILS ABSOLUTE 0.1 0.0 - 0.2 K/ul INTERFACE SYSTEM 06/20/2007 4:40 AM CASE OPERATOR us Murphy Espitia MD HEMATOLOGY ORDERABLES Edited INTERFACE SYSTEM Refer to clinic/hospital department * URINALYSIS (06/19/2007 5:59 AM CASE OPERATOR) COLOR UA Yellow Straw INTERFACE SYSTEM [...] NEGATIVE NEGATIVE INTERFACE SYSTEM SPECIFIC GRAVITY UA 1.020 <=1.005 INTERFACE SYSTEM MICRO EXAM No No INTERFACE SYSTEM 06/19/2007 5:59 AM CASE OPERATOR Murphy Espitia MD URINE ORDERABLES Edited Performing Organization Address [facility] Phone Number INTERFACE SYSTEM Refer to clinic/hospital department * CARDIAC ENZYMES (06/18/2007 7:40 AM CASE OPERATOR) TROPONIN I <0.1 0.0 - 1.3 ng/mL INTERFACE SYSTEM CKMB 1.9 0.0 - 5.0 ng/mL INTERFACE SYSTEM 06/18/2007 7:40 AM CASE OPERATOR Sammi Justice MD CHEMISTRY ORDERABLES Edited Performing Organization Address [facility] Phone Number INTERFACE SYSTEM Refer to clinic/hospital department * TSH (06/18/2007 1:45 AM CASE OPERATOR) TSH 0.530 0.350 - 5.500 uIU/ml INTERFACE SYSTEM 06/18/2007 1:45 AM CASE OPERATOR Murphy Espitia MD CHEMISTRY ORDERABLES Edited Performing Organization Address [facility] Phone Number INTERFACE SYSTEM Refer to clinic/hospital department * (ABNORMAL) COMPREHENSIVE METABOLIC PANEL (06/18/2007 1:45 AM CASE OPERATOR) GLUCOSE 227(H) 70 - 110 mg/dL INTERFACE SYSTEM BUN 11 7 - 17 mg/dL INTERFACE SYSTEM CREATININE 0.9 0.7 - 1.2 mg/dL INTERFACE SYSTEM SODIUM 131(L) 136 - 145 mEq/L INTERFACE SYSTEM POTASSIUM 3.7 3.5 - 5.0 mEq/L INTERFACE SYSTEM CHLORIDE 108 95 - 110 mEq/L INTERFACE SYSTEM CO2 19(L) 22 - 32 mmol/l INTERFACE SYSTEM CALCIUM 9.0 8.4 - 10.5 mg/dL INTERFACE SYSTEM TOTAL PROTEIN 6.9 6.3 - 8.2 g/dL INTERFACE SYSTEM ALBUMIN 4.1 3.5 - 5.0 g/dL INTERFACE SYSTEM ALKALINE PHOSPHATASE 150(H) 25 - 100 U/L INTERFACE SYSTEM AST 37(H) 8 - 33 U/L INTERFACE SYSTEM ALT 29 4 - 36 IU/L INTERFACE SYSTEM BILIRUBIN TOTAL 0.4 0.3 - 1.2 mg/dL INTERFACE SYSTEM GLOBULIN (CALC) 2.8 2.4 - 3.9 g/dL INTERFACE SYSTEM ALBUMIN/GLOBULIN RATIO 1.5 1.0 - 2.3 INTERFACE SYSTEM ANION GAP 8(L) 9 - 20 mEq/L INTERFACE SYSTEM OSMOLALITY, CALCULATED 277 275 - 295 mOsm/Kg INTERFACE SYSTEM 06/18/2007 1:45 AM CASE OPERATOR us Murphy Espitia MD CHEMISTRY ORDERABLES Edited INTERFACE SYSTEM Refer to clinic/hospital department * (ABNORMAL) CBC WITH DIFFERENTIAL (06/18/2007 1:45 AM CASE OPERATOR) WBC 22.9(H) 4.5 - 11.0 K/ul INTERFACE SYSTEM RBC 4.14(L) 4.20 - 5.40 Mil/ul INTERFACE SYSTEM HEMOGLOBIN 12.2 12.0 - 16.0 g/dL INTERFACE SYSTEM HEMATOCRIT 36.1 36.0 - 46.0 % INTERFACE SYSTEM MCV 87.2 84.0 - 103.0 Fl INTERFACE SYSTEM MCH 29.5 27.0 - 34.0 pg INTERFACE SYSTEM MCHC 33.8 30.0 - 35.0 g/dL INTERFACE SYSTEM RDW 13.7 11.0 - 14.5 % INTERFACE SYSTEM PLATELETS 206 140 - 440 K/ul INTERFACE SYSTEM MPV 10.2 8.9 - 12.8 Fl INTERFACE SYSTEM NEUTROPHILS 96.3(H) 42.2 - 75.2 % INTERFACE SYSTEM LYMPHOCYTES 2.5(L) 24.0 - 44.0 % INTERFACE SYSTEM MONOCYTES 1.1(L) 2.0 - 10.0 % INTERFACE SYSTEM BASOPHILS 0.1 0.0 - 1.0 % INTERFACE SYSTEM NEUTROPHIL ABSOLUTE 22.0(H) 2.0 - 8.0 K/ul INTERFACE SYSTEM LYMPHOCYTE ABSOLUTE 0.6(L) 1.2 - 4.0 K/ul INTERFACE SYSTEM MONOCYTE ABSOLUTE 0.3 0.1 - 0.6 K/ul INTERFACE SYSTEM EOSINOPHIL ABSOLUTE 0.0 0.0 - 0.7 K/ul INTERFACE SYSTEM BASOPHILS ABSOLUTE 0.0 0.0 - 0.2 K/ul INTERFACE SYSTEM 06/18/2007 1:45 AM CASE OPERATOR Murphy Espitia MD HEMATOLOGY ORDERABLES Edited Performing Organization Address [facility] Phone Number INTERFACE SYSTEM Refer to clinic/hospital department * CARDIAC ENZYMES (06/18/2007 1:45 AM CASE OPERATOR) TROPONIN I <0.1 0.0 - 1.3 ng/mL INTERFACE SYSTEM CKMB 1.7 0.0 - 5.0 ng/mL INTERFACE SYSTEM 06/18/2007 1:45 AM CASE OPERATOR Sammi Justice MD CHEMISTRY ORDERABLES Edited Performing Organization Address [facility] Phone Number INTERFACE SYSTEM Refer to clinic/hospital department * (ABNORMAL) BRAIN NATRIURETIC PEPTIDE, BNP OR PROBNP (06/17/2007 7:50 PM CASE OPERATOR) BRAIN NATRIURETIC PEPTIDE 211(H) 0 - 125 pg/mL INTERFACE SYSTEM 06/17/2007 7:50 PM CASE OPERATOR Sammi Justice MD CHEMISTRY ORDERABLES Edited Performing Organization Address [facility] Phone Number INTERFACE SYSTEM Refer to clinic/hospital department * PT AND APTT (06/17/2007 7:50 PM CASE OPERATOR) PROTIME 14.4 12.8 - 15.8 Secs INTERFACE SYSTEM INR 1.0 INTERFACE SYSTEM PTT 34.9 21.6 - 35.6 Secs INTERFACE SYSTEM 06/17/2007 7:50 PM CASE OPERATOR us Sammi Justice MD HEMATOLOGY ORDERABLES Edite d Performing Organization Address [facility] Phone Number INTERFACE SYSTEM Refer to clinic/hospital department * CARDIAC ENZYMES (06/17/2007 7:50 PM CASE OPERATOR) TROPONIN I <0.1 0.0 - 1.3 ng/mL INTERFACE SYSTEM CKMB 2.7 0.0 - 5.0 ng/mL INTERFACE SYSTEM 06/17/2007 7:50 PM CASE OPERATOR Sammi Justice MD CHEMISTRY ORDERABLES Edited Performing Organization Address [facility] Phone Number INTERFACE SYSTEM Refer to clinic/hospital department * (ABNORMAL) BASIC METABOLIC PANEL (06/17/2007 7:50 PM CASE OPERATOR) GLUCOSE 143(H) 70 - 110 mg/dL INTERFACE SYSTEM BUN 13 7 - 17 mg/dL INTERFACE SYSTEM CREATININE 0.9 0.7 - 1.2 mg/dL INTERFACE SYSTEM SODIUM 135(L) 136 - 145 mEq/L INTERFACE SYSTEM POTASSIUM 3.4(L) 3.5 - 5.0 mEq/L INTERFACE SYSTEM CHLORIDE 106 95 - 110 mEq/L INTERFACE SYSTEM CO2 21(L) 22 - 32 mmol/l INTERFACE SYSTEM CALCIUM 9.0 8.4 - 10.5 mg/dL INTERFACE SYSTEM ANION GAP 11 9 - 20 mEq/L INTERFACE SYSTEM OSMOLALITY, CALCULATED 280 275 - 295 mOsm/Kg INTERFACE SYSTEM 06/17/2007 7:50 PM CASE OPERATOR Sammi Justice MD CHEMISTRY ORDERABLES Edited Performing Organization Address [facility] Phone Number INTERFACE SYSTEM Refer to clinic/hospital department * (ABNORMAL) CBC WITH DIFFERENTIAL (06/17/2007 7:50 PM CASE OPERATOR) WBC 20.9(H) 4.5 - 11.0 K/ul INTERFACE SYSTEM RBC 4.05(L) 4.20 - 5.40 Mil/ul INTERFACE SYSTEM HEMOGLOBIN 12.0 12.0 - 16.0 g/dL INTERFACE SYSTEM HEMATOCRIT 35.4(L) 36.0 - 46.0 % INTERFACE SYSTEM MCV 87.4 84.0 - 103.0 Fl INTERFACE SYSTEM MCH 29.6 27.0 - 34.0 pg INTERFACE SYSTEM MCHC 33.9 30.0 - 35.0 g/dL INTERFACE SYSTEM RDW 13.8 11.0 - 14.5 % INTERFACE SYSTEM PLATELETS 214 140 - 440 K/ul INTERFACE SYSTEM MPV 10.1 8.9 - 12.8 Fl INTERFACE SYSTEM NEUTROPHILS 88.3(H) 42.2 - 75.2 % INTERFACE SYSTEM LYMPHOCYTES 4.9(L) 24.0 - 44.0 % INTERFACE SYSTEM MONOCYTES 5.7 2.0 - 10.0 % INTERFACE SYSTEM EOSINOPHILS 0.9 0.0 - 7.0 % INTERFACE SYSTEM BASOPHILS 0.2 0.0 - 1.0 % INTERFACE SYSTEM NEUTROPHIL ABSOLUTE 18.4(H) 2.0 - 8.0 K/ul INTERFACE SYSTEM LYMPHOCYTE ABSOLUTE 1.0(L) 1.2 - 4.0 K/ul INTERFACE SYSTEM MONOCYTE ABSOLUTE 1.2(H) 0.1 - 0.6 K/ul INTERFACE SYSTEM EOSINOPHIL ABSOLUTE 0.2 0.0 - 0.7 K/ul INTERFACE SYSTEM BASOPHILS ABSOLUTE 0.0 0.0 - 0.2 K/ul INTERFACE SYSTEM 06/17/2007 7:50 PM CASE OPERATOR us Sammi Justice MD HEMATOLOGY ORDERABLES Edite d INTERFACE SYSTEM Refer to clinic/hospital department * (ABNORMAL) POC ISTAT EG 7+ (06/17/2007 6:48 PM CASE OPERATOR) SPECIMEN TYPE Arterial INTERF SHANTE SYSTEM Comment: Test Performed By [id number] Pulse OX: 96 Hemoglobin calculated from Hematocrit result FIO2 4 INTERFACE SYSTEM PH 7.38 7.35 - 7.45 Unit INTERFACE SYSTEM PH TEMP CORRECT 7.38 7.35 - 7.45 Unit INTERFACE SYSTEM PCO2 POC 32(L) 35 - 45 mmHg INTERFACE SYSTEM PCO2 TEMP CORRECT 32(L) 35 - 45 mmHg INTERFACE SYSTEM PO2 60(L) 80 - 105 mmHg INTERFACE SYSTEM PO2 TEMP CORRECT 60(L) 80 - 105 mmHg INTERFACE SYSTEM HCO3 (CALC) POC 18.8(L) 22.0 - 26.0 mmol/l INTERFACE SYSTEM BASE EXCESS -6(L) -2 - 3 mmol/l INTERFACE SYSTEM HEMOGLOBIN POC 12.6 3 g/dL 12.0 - 16.0 g/dL INTERFACE SYSTEM HEMATOCRIT ABG 37(L) 38 - 51 % INTER FACE SYSTEM O2 SATURATION 90(L) 95 - 98 % INTERF SHANTE SYSTEM TCO2 (CALC) POC 20(L) 23 - 27 mmol/l INTERFACE SYSTEM SODIUM 136(L) 138 - 146 mEq/L INTERFACE SYSTEM POTASSIUM 3.1(L) 3.5 - 4.9 mEq/L INTERFACE SYSTEM CALCIUM IONIZED 1.20 1.12 - 1.32 mmol/l INTERFACE SYSTEM 06/17/2007 6:48 PM CASE OPERATOR Murphy Espitia MD POINT OF CARE TESTING COM Edite d INTERFACE SYSTEM Refer to clinic/hospital department documented in this encounter Visit Diagnoses Diagnosis Unspecified asthma, with exacerbation Bipolar I disorder, most recent episode (or current) depressed, unspecified (CMS/[facility]) Bipolar I disorder, most recent episode (or current) depressed, unspecified Tobacco use disorder Obesity, unspecified Hypopotassemia Hypoxemia documented in this encounter Additional Health Concerns Infection Onset Date Last Indicated Resolved Time VRE Comment:Urine 10/30/13 Resolved 11/04/2013 11/04/2013 8 10:33 AM CASE OPERATOR R/O COVID-19 12/25/2019 12/25/2019 12/26/2019 2:46 PM CDT R/O COVID-19 05/09/2020 05/09/2020 05/09/2020 12:1 7 PM CASE OPERATOR documented as of this encounter Care Teams Apparel Pattern Maker Relationship Specialty Start Date End Date Dara Tavera FNP [address] [place] [phone] PCP - General NURSE PRACTITIONER 10/13/18 documented as of this encounter
--- OUTSIDE RECORDS SUMMARY | 2025-02-09 23:01 | XMS_ITS | Encounter Summary ---
Author Organization [facility] Address [address] [place] [address] Care Team Providers Care Ammunition Supervisor Name Role Phone Dara Tavera Primary Care Provider [phone] Encounter Details Date Type Department Care Team (Latest Contact Info) Description 12/16/2005 Outpatient Historical [facility] [address] [place] [address] AMBULANCE, [facility] Unspecified Nonpsychotic Mental Disorder (Primary Dx) Social History Tobacco Use Types Packs/Day Years Used Date Smoking Tobacco: Never Assessed Comments Unknown Sex and Gender Information Value Date Recorded Sex Assigned at Not on file Legal Sex Female 5:22 AM MEAT PRODUCTS DEMONSTRATOR Gender Identity Not on file Sexual Orientation Not on file documented as of this encounter Plan of Treatment Not on file documented as of this encounter Visit Diagnoses Diagnosis Unspecified nonpsychotic mental disorder- Primary documented in this encounter Additional Health Concerns Infection Onset Date Last Indicated Resolved Time 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
--- OUTSIDE RECORDS SUMMARY | 2025-02-09 23:01 | XMS_ITS | Encounter Summary ---
Author Organization [facility] Address [address] [place] [address] Care Team Providers Care Flask Handler Name Role Phone Dara Tavera Primary Care Provider Encounter Details Date Type Department Care Team (Latest Contact Info) Description 01/05/2006 Outpatient Historical [facility] Ambulance [address] [place] [address] AMBULANCE, [facility] Abdominal Pain, Unspecified Site (Primary Dx) Social History Tobacco Use Types Packs/Day Years Used Date Smoking Tobacco: Never Assessed Comments Unknown Sex and Gender Information Value Date Recorded Sex Assigned at Not on file Legal Sex Female 5:22 AM MOTOR CARRIER INSPECTOR Gender Identity Not on file Sexual Orientation Not on file documented as of this encounter Plan of Treatment Not on file documented as of this encounter Visit Diagnoses Diagnosis Abdominal pain, unspecified site- Primary documented in this encounter Additional Health Concerns Infection Onset Date Last Indicated Resolved Time 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
--- OUTSIDE RECORDS SUMMARY | 2025-02-09 23:01 | XMS_ITS | Encounter Summary ---
Author Organization [facility] Address [address] [place] [address] Care Team Providers Care Image Processing Engineer Name Role Phone Dara Tavera Primary Care Provider Encounter Details Date Type Department Care Team (Latest Contact Info) Description 10/09/2005 Outpatient Historical [facility] [address] [place] [address] AMBULANCE, [facility] Unspecified Nonpsychotic Mental Disorder (Primary Dx) Social History Tobacco Use Types Packs/Day Years Used Date Smoking Tobacco: Never Assessed Comments Unknown Sex and Gender Information Value Date Recorded Sex Assigned at Not on file Legal Sex Female 5:22 AM KETTLE CHIPPER Gender Identity Not on file Sexual Orientation Not on file documented as of this encounter Plan of Treatment Not on file documented as of this encounter Visit Diagnoses Diagnosis Unspecified nonpsychotic mental disorder- Primary documented in this encounter Additional Health Concerns Infection Onset Date Last Indicated Resolved Time 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
--- OUTSIDE RECORDS SUMMARY | 2025-02-09 23:01 | XMS_ITS | Encounter Summary ---
Author Organization [facility] Address [address] [place] [address] Care Team Providers Care Managed Care Provider Name Role Phone Dara Tavera Primary Care Provider Encounter Details Date Type Department Care Team (Latest Contact Info) Description 09/19/2005 Outpatient Historical [facility] [address] [place] [address] AMBULANCE, [facility] Unspecified Hemorrhage (Primary Dx) Social History Tobacco Use Types Packs/Day Years Used Date Smoking Tobacco: Never Assessed Comments Unknown Sex and Gender Information Value Date Recorded Sex Assigned at Not on file Legal Sex Female 5:22 AM ASSEMBLER SMALL PRODUCTS Gender Identity Not on file Sexual Orientation Not on file documented as of this encounter Plan of Treatment Not on file documented as of this encounter Visit Diagnoses Diagnosis Hemorrhage, unspecified- Primary documented in this encounter Additional Health Concerns Infection Onset Date Last Indicated Resolved Time 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
--- OUTSIDE RECORDS SUMMARY | 2025-02-09 23:01 | XMS_ITS | Encounter Summary ---
Author Organization [facility] Address [address] [place] [address] Care Team Providers Care Supervisor Paper Products Name Role Phone Dara Tavera Primary Care Provider [phone] Encounter Details Date Type Department Care Team (Latest Contact Info) Description 12/28/2005 Outpatient Historical [facility] [place] [address] [facility] [address] [place] [address] Faiza Petersen MD NO ADDRESS ON FILE Open Wnd Anterior Abdomen (Primary Dx); Other Postsurgical Status Social History Tobacco Use Types Packs/Day Years Used Date Smoking Tobacco: Never Assessed Comments Unknown Sex and Gender Information Value Date Recorded Sex Assigned at Not on file Legal Sex Female 5:22 AM CLIENT ANALYST Gender Identity Not on file Sexual Orientation Not on file documented as of this encounter Plan of Treatment Not on file documented as of this encounter Visit Diagnoses Diagnosis Open wound of abdominal wall, anterior, without mention of complication- Primary Other postprocedural status(V45.89) Other postprocedural status documented in this encounter Additional Health Concerns Infection Onset Date Last Indicated Resolved Time 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
--- OUTSIDE RECORDS SUMMARY | 2025-02-09 23:01 | XMS_ITS | Encounter Summary ---
Author Organization [facility] Address [address] [place] [address] Care Team Providers Care Antique Collector Name Role Phone Dara Tavera Primary Care Provider Encounter Details Date Type Department Care Team (Latest Contact Info) Description 07/18/2005 Outpatient Historical [facility] [address] [place] [address] Faiza Petersen MD NO ADDRESS ON FILE PREOP EXAM OTHER UNSPECIFIED (Primary Dx); ESOPHAGEAL REFLUX; CHEST PAIN NEC Social History Tobacco Use Types Packs/Day Years Used Date Smoking Tobacco: Never Assessed Comments Unknown Sex and Gender Information Value Date Recorded Sex Assigned at Not on file Legal Sex Female 5:22 AM NEUROLOGICAL SURGEON Gender Identity Not on file Sexual Orientation Not on file documented as of this encounter Plan of Treatment Not on file documented as of this encounter Visit Diagnoses Diagnosis Preoperative examination, unspecified- Primary Esophageal reflux Other chest pain documented in this encounter Additional Health Concerns Infection Onset Date Last Indicated Resolved Time 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
--- OUTSIDE RECORDS SUMMARY | 2025-02-09 23:01 | XMS_ITS | Encounter Summary ---
Author Organization [facility] Address [address] [place] [address] Care Team Providers Care Cloth Burler Name Role Phone Dara Tavera Primary Care Provider [phone] Encounter Details Date Type Department Care Team (Latest Contact Info) Description 03/16/2006 Outpatient Historical [facility] [address] [place] [address] AMBULANCE, [facility] Abdominal Pain, Unspecified Site (Primary Dx) Social History Tobacco Use Types Packs/Day Years Used Date Smoking Tobacco: Never Assessed Comments Unknown Sex and Gender Information Value Date Recorded Sex Assigned at Not on file Legal Sex Female 5:22 AM CHEST PAIN COORDINATOR Gender Identity Not on file Sexual Orientation Not on file documented as of this encounter Plan of Treatment Not on file documented as of this encounter Visit Diagnoses Diagnosis Abdominal pain, unspecified site- Primary documented in this encounter Additional Health Concerns Infection Onset Date Last Indicated Resolved Time 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
--- OUTSIDE RECORDS SUMMARY | 2025-02-09 23:01 | XMS_ITS | Encounter Summary ---
Author Organization [facility] Address [address] [place] [address] Care Team Providers Care Pumper Gauger Name Role Phone Dara Tavera Primary Care Provider [phone] Encounter Details Date Type Department Care Team (Latest Contact Info) Description 02/07/2007 Outpatient Historical [facility] [address] [place] [address] AMBULANCE, [facility] Unspecified Nonpsychotic Mental Disorder (Primary Dx) Social History Tobacco Use Types Packs/Day Years Used Date Smoking Tobacco: Never Assessed Comments Unknown Sex and Gender Information Value Date Recorded Sex Assigned at Not on file Legal Sex Female 5:22 AM DIE LAY OUT WORKER Gender Identity Not on file Sexual Orientation Not on file documented as of this encounter Plan of Treatment Not on file documented as of this encounter Visit Diagnoses Diagnosis Unspecified nonpsychotic mental disorder- Primary documented in this encounter Additional Health Concerns Infection Onset Date Last Indicated Resolved Time 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
--- OUTSIDE RECORDS SUMMARY | 2025-02-09 23:01 | XMS_ITS | Encounter Summary ---
Author Organization [facility] Address [address] [place] [address] Care Team Providers Care Commercial Pest Control Technician Name Role Phone Dara Tavera AMANDEEP Primary Care Provider [phone] Encounter Details Date Type Department Care Team (Late st Contact Info) Description 04/04/[address] [facility] [address] [place] [address] AMBULANCE, [facility] Unspecified Chest Pain (Primary Dx) Social History Tobacco Use Types Packs/Day Years Used Date Smoking Tobacco: Never Assessed Comments Unknown Sex and Gender Information Value Date Recorded Sex Assigned at Not on file Legal Sex Female 5:22 AM CHILDREN'S CHOIR DIRECTOR Gender Identity Not on file Sexual Orientation Not on file documented as of this encounter Plan of Treatment Not on file documented as of this encounter Procedures Procedure Name Priority Date/Time Associated Diagnosis Comments CTA CHEST W WO CONTRAST Routine 04/04/2007 10:20 AM CDT XR CHEST PA OR AP 1 VW Routine 04/04/2007 12:22 AM CDT documented in this encounter Results * CTA CHEST W WO CONTRAST (04/04/2007 10:20 AM CDT) Anatomical Region Laterality Modality Chest Other 04/04/2007 10:2 0 AM CDT Narrative 04/04/2007 10:20 AM CDT Exam: CTA ChestDate/Time of Exam: Apr 04, 2007 12:41:31 PMHistory: Please see order comments. Chest pain, shortness of breath. Technique: Routine CT pulmonary angiography with and without contrast was performed. Contrast: 100 mL intravenous Optiray 350. Comparison: None. Findings: No pathologic axillary, mediastinal, or hilar lymphadenopathy by CT size criteria isidentified. Calcified subcarinal and left hilar lymph nodes are present. Suboptimal opacificationof the peripheral pulmonary arterial system predominately within the lung bases is noted to excludeperipheral pulmonary embolus. No intrinsic filling defects of the opacified central pulmonaryarterial system to suggest acute or chronic pulmonary embolus is seen. Linear scar versusatelectasis of the right upper lobe is seen. No consolidative alveolar infiltrate, effusion,pneumothorax, or suspicious lung parenchymal nodularity is seen. Patchy perihilar groundglassopacity is noted. The visualized upper abdominal viscera demonstrates the gallbladder to besurgically absent. Impression: 1. Negative for acute or chronic pulmonary embolus of the opacified central pulmonary arterial system. There is suboptimal opacification of the peripheral arterial system of the lung bases noted toexclude more peripheral pulmonary embolus. 2. Patchy perihilar groundglass opacities. Findings are nonspecific for alveolitis/pneumonitis. 3. Status post cholecystectomy. - Dictated By: Supa Liu M.D. Electronically Signed By: Supa Liu M.D. Date Signed: 04/04/07 Procedure Note 05/10/2009 Exam: CTA ChestDate/Time of Exam: Apr 04, 2007 12:41:31 PMHistory: Please see order comments. Chest pain, shortness of breath. Technique: Routine CT pulmonary angiography with and without contrast was performed. Contrast: 100 mL intravenous Optiray 350. Comparison: None. Findings: No pathologic axillary, mediastinal, or hilar lymphadenopathy by CT sizecriteria isidentified. Calcified subcarinal and left hilar lymph nodes are present. Suboptimalopacificationof the peripheral pulmonary arterial system predominately within the lung bases is noted toexcludeperipheral pulmonary embolus. No intrinsic filling defects of the opacified central pulmonaryarterialsystem to suggest acute or chronic pulmonary embolus is seen. Linear scar versusatelectasis of the rightupper lobe is seen. No consolidative alveolar infiltrate, effusion,pneumothorax, or suspiciouslung parenchymal nodularity is seen. Patchy perihilar groundglassopacity is noted. The visualized upperabdominal viscera demonstrates the gallbladder to besurgically absent. Impression: 1. Negative for acute or chronic pulmonary embolus of the opacifiedcentral pulmonary arterial system. There is suboptimal opacification of the peripheral arterial system of thelung bases noted toexclude more peripheral pulmonary embolus. 2. Patchy perihilar groundglass opacities. Findings are nonspecific foralveolitis/pneumonitis. 3. Status post cholecystectomy. - Dictated By: Supa Liu M.D. Electronically Signed By: Supa Liu M.D. Date Signed: 04/04/07 us Thiago Mota MD CT ORDERABLES Final Result * XR CHEST PA OR AP (04/04/2007 12:22 AM CDT) Anatomical Region Laterality Modality Chest Other 04/04/2007 12:2 2 AM CDT Narrative 04/04/2007 12:22 AM CDT Exam: Chest - PortableDate/Time of Exam: Apr 04, 2007 1:06:39 AMHistory: Chest pain. Findings: The AP upright is compared to the study from 07/28/2003. The lungs are well-inflated and clear. The cardiomediastinal silhouette and pulmonary vessels areunremarkable. Impression: No active chest disease. - Dictated By: Shanda Thibodeaux M.D. Electronically Signed By: Shanda Thibodeaux M.D. Date Signed: 04/04/07 Procedure Note 05/10/2009 Exam: Chest - PortableDate/Time of Exam: Apr 04, 2007 1:06:39 AMHistory: Chest pain. Findings: The AP upright is compared to the study from 07/28/2003. The lungs are well-inflated and clear. The cardiomediastinal silhouetteand pulmonary vessels areunremarkable. Impression: No active chest disease. - Dictated By: Shanda Thibodeaux M.D. Electronically Signed By: Shanda Thibodeaux M.D. 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
--- OUTSIDE RECORDS SUMMARY | 2025-02-09 23:01 | XMS_ITS | Encounter Summary ---
Author Organization [facility] Address [address] [place] [address] Care Team Providers Care Deportation Examiner Name Role Phone Dara Tavera AMANDEEP Primary Care Provider Encounter Details Date Type Department Care Team (Late st Contact Info) Description 04/18/2007 Inpatient Historical [facility] Pawan Rosario MD [address] [place] [address] Bipolar Affective, Mixed, Sev w/ Psych (CMS/HCC) (Primary Dx) Social History Tobacco Use Types Packs/Day Years Used Date Smoking Tobacco: Never Assessed Comments Unknown Sex and Gender Information Value Date Recorded Sex Assigned at Not on file Legal Sex Female 5:22 AM SOFT SHOE DANCER Gender Identity Not on file Sexual Orientation Not on file documented as of this encounter Plan of Treatment Not on file documented as of this encounter Procedures Procedure Name Priority Date/Time Associated Diagnosis Comments URINALYSIS W/REFLEX MICROSCOPIC Routine 04/22/2007 9:05 AM SOFT SHOE DANCER LIPASE Routine 04/18/2007 10:54 AM CDT AMYLASE Routine 04/18/2007 10:54 AM CDT CBC WITH DIFFERENTIAL Routine 04/18/2007 10:48 AM CDT TSH Routine 04/18/2007 10:48 AM CDT ETHANOL LEVEL Routine 04/18/2007 10:48 AM CDT COMPREHENSIVE METABOLIC PANEL Routine 04/18/2007 10:48 AM CDT DRUG SCREEN, URINE Routine 04/18/2007 9: 47 AM CDT documented in this encounter Results * URINALYSIS (04/22/2007 9:05 AM SOFT SHOE DANCER) COLOR UA Yellow Straw INTERFACE SYSTEM CLARITY [...] SYSTEM MICRO EXAM No No INTERFACE SYSTEM 04/22/2007 9:05 AM SOFT SHOE DANCER us Pawan Rosario MD URINE ORDERABLES Edited Performing Organization Address [facility] Phone Number INTERFACE SYSTEM Refer to clinic/hospital department * LIPASE (04/18/2007 10:54 AM CDT) LIPASE 36 6 - 51 U/L INTERFACE SYSTEM 04/18/2007 10:5 4 AM CDT Benedicto Rojo MD CHEMISTRY ORDERABLES Edited Performing Organization Address [facility] Phone Number INTERFACE SYSTEM Refer to clinic/hospital department * AMYLASE (04/18/2007 10:54 AM CDT) AMYLASE 46 20 - 104 U/L INTERFACE SYSTEM 04/18/2007 10:5 4 AM CDT Benedicto Rojo MD CHEMISTRY ORDERABLES Edited Performing Organization Address [facility] Phone Number INTERFACE SYSTEM Refer to clinic/hospital department * (ABNORMAL) CBC WITH DIFFERENTIAL (04/18/2007 10:48 AM CDT) WBC 11.0 4.5 - 11.0 K/ul INTERFACE SYSTEM RBC 4.87 4.20 - 5.40 Mil/ul INTERFACE SYSTEM HEMOGLOBIN 14.9 12.0 - 16.0 g/dL INTERFACE SYSTEM HEMATOCRIT 43.1 36.0 - 46.0 % INTERFACE SYSTEM MCV 88.5 84.0 - 103.0 Fl INTERFACE SYSTEM MCH 30.6 27.0 - 34.0 pg INTERFACE SYSTEM MCHC 34.6 30.0 - 35.0 g/dL INTERFACE SYSTEM RDW 13.8 11.0 - 14.5 % INTERFACE SYSTEM PLATELETS 269 140 - 440 K/ul INTERFACE SYSTEM MPV 10.5 8.9 - 12.8 Fl INTERFACE SYSTEM NEUTROPHILS 68.1 42.2 - 75.2 % INTERFACE SYSTEM LYMPHOCYTES 22.0(L) 24.0 - 44.0 % INTERFACE SYSTEM MONOCYTES 6.6 2.0 - 10.0 % INTERFACE SYSTEM EOSINOPHILS 2.7 0.0 - 7.0 % INTERFACE SYSTEM BASOPHILS 0.6 0.0 - 1.0 % INTERFACE SYSTEM NEUTROPHIL ABSOLUTE 7.5 2.0 - 8.0 K/ul INTERFACE SYSTEM LYMPHOCYTE ABSOLUTE 2.4 1.2 - 4.0 K/ul INTERFACE SYSTEM MONOCYTE ABSOLUTE 0.7(H) 0.1 - 0.6 K/ul INTERFACE SYSTEM EOSINOPHIL ABSOLUTE 0.3 0.0 - 0.7 K/ul INTERFACE SYSTEM BASOPHILS ABSOLUTE 0.1 0.0 - 0.2 K/ul INTERFACE SYSTEM 04/18/2007 10:4 8 AM CDT us Benedicto Rojo MD HEMATOLOGY ORDERABLES Edited INTERFACE SYSTEM Refer to clinic/hospital department * TSH (04/18/2007 10:48 AM CDT) TSH 0.560 0.350 - 5.500 uIU/ml INTERFACE SYSTEM Comment: As of 04 at 3:00 p.m. [facility] has changed the methodology for TSH, and with this change the reference range has changed from 0.49-4.67 to 0.35-5.5 uIU/ml. 04/18/2007 10:4 8 AM CDT Benedicto Rjoo MD CHEMISTRY ORDERABLES Edited Performing Organization Address [facility] Phone Number INTERFACE SYSTEM Refer to clinic/hospital department * (ABNORMAL) COMPREHENSIVE METABOLIC PANEL (04/18/2007 10:48 AM CDT) GLUCOSE 91 70 - 110 mg/dL INTERFACE SYSTEM BUN 13 7 - 17 mg/dL INTERFACE SYSTEM CREATININE 0.9 0.7 - 1.2 mg/dL INTERFACE SYSTEM SODIUM 140 136 - 145 mEq/L INTERFACE SYSTEM POTASSIUM 4.1 3.5 - 5.0 mEq/L INTERFACE SYSTEM CHLORIDE 113(H) 95 - 110 mEq/L INTERFACE SYSTEM CO2 19(L) 22 - 32 mmol/l INTERFACE SYSTEM CALCIUM 10.1 8.4 - 10.5 mg/dL INTERFACE SYSTEM TOTAL PROTEIN 7.8 6.3 - 8.2 g/dL INTERFACE SYSTEM ALBUMIN 4.7 3.5 - 5.0 g/dL INTERFACE SYSTEM ALKALINE PHOSPHATASE 150(H) 25 - 100 U/L INTERFACE SYSTEM AST 18 8 - 33 U/L INTERFACE SYSTEM ALT 21 4 - 36 IU/L INTERFACE SYSTEM BILIRUBIN TOTAL 0.2(L) 0.3 - 1.2 mg/dL INTERFACE SYSTEM GLOBULIN (CALC) 3.1 2.4 - 3.9 g/dL INTERFACE SYSTEM ALBUMIN/GLOBULIN RATIO 1.5 1.0 - 2.3 INTERFACE SYSTEM ANION GAP 12 9 - 20 mEq/L INTERFACE SYSTEM OSMOLALITY, CALCULATED 288 275 - 295 mOsm/Kg INTERFACE SYSTEM 04/18/2007 10:4 8 AM CDT Benedicto Rojo MD CHEMISTRY ORDERABLES Edited Performing Organization Address [facility] Phone Number INTERFACE SYSTEM Refer to clinic/hospital department * ETHANOL (04/18/2007 10:48 AM CDT) ETHANOL <10 <=10 mg/dL INTERFACE SYSTEM ETHANOL % <0.010 <=0.010 % INTERFACE SYSTEM Comment: Beginning August 01, 2006, the Blood Alcohol from [facility] will be reported in % as well as mg/dl. 04/18/2007 10:4 8 AM CDT Benedicto Rojo MD CHEMISTRY ORDERABLES Edited Performing Organization Address [facility] Phone Number INTERFACE SYSTEM Refer to clinic/hospital department * (ABNORMAL) DRUG SCREEN, URINE (04/18/2007 9:47 AM CDT) AMPHETAMINE QUAL, URINE Drug Negative Drug Negative INTERFACE SYSTEM Comment: All components of the Urine Drug Screen are performed by Immunoassay. Confirmation must be requested by physician before being sent out. NOTE: The ingestion of natural herbal and plant products containing Ephedra/Ephedra metabolites can produce in urine one or more substances capable of cross reacting with amphetamine/methamphetamine immunoassays. This test provides a preliminary result only. A more specific alternative chemical method must be used to obtain a confirmed analytical result. Drug Screening Cutoff Amphetamine/Methamphetamine 1000 ng/ml Barbiturates 200 ng/ml Benzodiazepines 200 ng/ml Cannabinoid 50 ng/ml Cocaine Metabolite 300 ng/ml Opiates 300 ng/ml PCP 25 ng/ml Immunoassay Screening results above cutoff value are reported as Positive. BARBITURATE QUAL, URINE Drug Positive(A) Drug Negative INTERFACE SYSTEM COCAINE QUAL URINE Drug Negative Drug Negative INTERFACE SYSTEM PCP QUAL, URINE Drug Negative Drug Negative INTERFACE SYSTEM CANNABINOIDS QUAL, URINE Drug Negative Drug Negative INTERFACE SYSTEM BENZODIAZEPINE QUAL, URINE Drug Negative Drug Negative INTERFACE SYSTEM OPIATE QUAL, URINE Drug Negative Drug Negative INTERFACE SYSTEM 04/18/2007 9:47 AM CDT Benedicto Rojo MD URINE ORDERABLES Edited Performing Organization Address [facility] Phone Number INTERFACE SYSTEM Refer to clinic/hospital department documented in this encounter Visit Diagnoses Diagnosis Bipolar I disorder, most recent episode (or current) mixed, severe, specified as with psychotic behavior ([facility])- Primary Bipolar I disorder, most recent episode (or current) mixed, severe, specified as with psychotic behavior documented in this encounter Additional Health Concerns Infection Onset Date Last Indicated Resolved Time VRE Comment:Urine 10/30/13 Resolved 11/04/2013 11/04/2013 8 10:33 AM SOFT SHOE DANCER R/O COVID-19 12/25/2019 12/25/2019 12/26/2019 2:46 PM CDT R/O COVID-19 05/09/2020 05/09/2020 05/09/2020 12:1 7 PM SOFT SHOE DANCER documented as of this encounter Care Teams Deportation Examiner Relationship Specialty Start Date End Date Dara Tavera FNP [address] [place] [phone] PCP - General NURSE PRACTITIONER 10/13/18 documented as of this encounter
--- OUTSIDE RECORDS SUMMARY | 2025-02-09 23:01 | XMS_ITS | Encounter Summary ---
Author Organization [facility] Address [address] [place] [address] Care Team Providers Care An/Sqq 89([id number] Sonar System Journeyman Name Role Phone Dara Tavera Primary Care Provider [phone] Encounter Details Date Type Department Care Team (Latest Contact Info) Description 04/08/2006 Outpatient Historical [facility] [address] [place] [address] AMBULANCE, [facility] Unspecified Epilepsy without Mention of Intractable Epilepsy (CMS/HCC) (Primary Dx) Social History Tobacco Use Types Packs/Day Years Used Date Smoking Tobacco: Never Assessed Comments Unknown Sex and Gender Information Value Date Recorded Sex Assigned at Not on file Legal Sex Female 5:22 AM TV PRODUCTION ASSISTANT Gender Identity Not on file Sexual Orientation Not on file documented as of this encounter Plan of Treatment Not on file documented as of this encounter Visit Diagnoses Diagnosis Unspecified epilepsy without mention of intractable epilepsy (CMS/HCC)- Primary Unspecified epilepsy without mention of intractable epilepsy documented in this encounter Additional Health Concerns Infection Onset Date Last Indicated Resolved Time VRE Comment:Urine 10/30/13 Resolved 11/04/2013 11/04/2013 8 10:33 AM TV PRODUCTION ASSISTANT R/O COVID-19 12/25/2019 12/25/2019 12/26/2019 2:46 PM CDT R/O COVID-19 05/09/2020 05/09/2020 05/09/2020 12:1 7 PM TV PRODUCTION ASSISTANT documented as of this encounter Care Teams An/Sqq 89(V)15 Sonar System Journeyman Relationship Specialty Start Date End Date Dara Tavera FNP [address] [place] [address] PCP - General NURSE PRACTITIONER 10/13/18 documented as of this encounter
--- OUTSIDE RECORDS SUMMARY | 2025-02-09 23:01 | XMS_ITS | Encounter Summary ---
Author Organization [facility] Address [address] [place] [address] Care Team Providers Care Leguillon Debeader Name Role Phone Dara Tavera MOBILE HOME SET UP PERSON Primary Care Provider Reason for Visit * Reason Comments Medication Refill Encounter Details Date Type Department Care Team (Late st Contact Info) Description 07/25/2019 Refill [facility] [address] [place] [address] Danial Farias, HETAL [address] [place] [address] Social History Tobacco Use Types Packs/Day Years Used Date Smoking Tobacco: Every Day Cigarettes Smokeless Tobacco: Never Comments:5 cigarettes Alcohol Use Standard Drinks/Week Comments No 0 [...] asked 05/05/2019 How often do you attend nondenominational or taoism serv ices? Not asked 05/05/2019 Do you belong to any clubs o r organizations such as nondenominational groups, unions, fraternal or athletic groups, or [...] on file Legal Sex Female 5:22 AM RETAIL PRODUCT DEMO SPECIALIST Gender Identity Not on file Sexual [...] COVID-19 05/09/2020 05/09/2020 05/09/2020 12:1 7 PM RETAIL PRODUCT DEMO SPECIALIST documented as of this encounter Care Teams Leguillon Debeader Relationship Specialty Start Date End Date Dara Tavera FNP [address] [place] [phone] PCP - General NURSE PRACTITIONER 10/13/18 documented as of this encounter
--- OUTSIDE RECORDS SUMMARY | 2025-02-09 23:01 | XMS_ITS | Encounter Summary ---
Author Organization [facility] Address [address] [place] [address] Care Team Providers Care Ged Tutor Name Role Phone Dara Tavera Primary Care Provider Encounter Details Date Type Department Care Team (Latest Contact Info) Description 09/19/2005 Outpatient Historical [facility] [address] [place] [address] AMBULANCE, [facility] Hemorrhage Complicating a Procedure (Primary Dx) Social History Tobacco Use Types Packs/Day Years Used Date Smoking Tobacco: Never Assessed Comments Unknown Sex and Gender Information Value Date Recorded Sex Assigned at Not on file Legal Sex Female 5:22 AM SCREEN EXAMINER Gender Identity Not on file Sexual Orientation Not on file documented as of this encounter Plan of Treatment Not on file documented as of this encounter Visit Diagnoses Diagnosis Hemorrhage complicating a procedure- Primary documented in this encounter Additional Health Concerns Infection Onset Date Last Indicated Resolved Time VRE Comment:Urine 10/30/13 Resolved 11/04/2013 11/04/2013 8 10:33 AM SCREEN EXAMINER R/O COVID-19 12/25/2019 12/25/2019 12/26/2019 2:46 PM CDT R/O COVID-19 05/09/2020 05/09/2020 05/09/2020 12:1 7 PM SCREEN EXAMINER documented as of this encounter Care Teams Ged Tutor Relationship Specialty Start Date End Date Dara Tavera FNP [address] [place] [phone] PCP - General NURSE PRACTITIONER 10/13/18 documented as of this encounter
--- OUTSIDE RECORDS SUMMARY | 2025-02-09 23:01 | XMS_ITS | Encounter Summary ---
Author Organization [facility] Address [address] [place] [address] Care Team Providers Care Police Patrol Lieutenant Name Role Phone Dara Tavera Primary Care Provider Encounter Details Date Type Department Care Team (Latest Contact Info) Description 01/05/[address] [facility] [place] [address] [facility] [address] [place] [address] Faiza Petersen MD NO ADDRESS ON FILE Open Wnd Anterior Abdomen (Primary Dx); Abdominal Pain, Unspecified Site Social History Tobacco Use Types Packs/Day Years Used Date Smoking Tobacco: Never Assessed Comments Unknown Sex and Gender Information Value Date Recorded Sex Assigned at Not on file Legal Sex Female 5:22 AM SPACE BUYER Gender Identity Not on file Sexual Orientation Not on file documented as of this encounter Plan of Treatment Not on file documented as of this encounter Visit Diagnoses Diagnosis Open wound of abdominal wall, anterior, without mention of complication- Primary Abdominal pain, unspecified site documented in this encounter Additional Health Concerns Infection Onset Date Last Indicated Resolved Time VRE Comment:Urine 10/30/13 Resolved 11/04/2013 11/04/2013 8 10:33 AM SPACE BUYER R/O COVID-19 12/25/2019 12/25/2019 12/26/2019 2:46 PM CDT R/O COVID-19 05/09/2020 05/09/2020 05/09/2020 12:1 7 PM SPACE BUYER documented as of this encounter Care Teams Police Patrol Lieutenant Relationship Specialty Start Date End Date Dara Tavera FNP [address] [place] [address] PCP - General NURSE PRACTITIONER 10/13/18 documented as of this encounter
--- OUTSIDE RECORDS SUMMARY | 2025-02-09 23:01 | XMS_ITS | Encounter Summary ---
Author Organization [facility] Address [address] [place] [address] Care Team Providers Care It Lead Name Role Phone Dara Tavera Primary Care Provider Encounter Details Date Type Department Care Team (Late st Contact Info) Description 11/05/2006 Outpatient Historical [facility] [address] [place] [address] AMBULANCE, [facility] Social History Tobacco Use Types Packs/Day Years Used Date Smoking Tobacco: Never Assessed Comments Unknown Sex and Gender Information Value Date Recorded Sex Assigned at Not on file Legal Sex Female 5:22 AM CAMPUS MANAGER Gender Identity Not on file Sexual Orientation Not on file documented as of this encounter Plan of Treatment Not on file documented as of this encounter Visit Diagnoses Not on filedocumented in this encounter Additional Health Concerns Infection Onset Date Last Indicated Resolved Time VRE Comment:Urine 10/30/13 Resolved 11/04/2013 11/04/2013 8 10:33 AM CAMPUS MANAGER R/O COVID-19 12/25/2019 12/25/2019 12/26/2019 2:46 PM CDT R/O COVID-19 05/09/2020 05/09/2020 05/09/2020 12:1 7 PM CAMPUS MANAGER documented as of this encounter Care Teams It Lead Relationship Specialty Start Date End Date Dara Tavera FNP [address] [place] [phone] PCP - General NURSE PRACTITIONER 10/13/18 documented as of this encounter
--- OUTSIDE RECORDS SUMMARY | 2025-02-09 23:01 | XMS_ITS | Encounter Summary ---
Author Organization [facility] Address [address] [place] [address] Care Team Providers Care Band Splicer Name Role Phone Dara Tavera Primary Care Provider Encounter Details Date Type Department Care Team (Latest Contact Info) Description 04/12/2006 Outpatient Historical [facility] [address] [place] [address] AMBULANCE, [facility] Nausea with Vomiting (Primary Dx) Social History Tobacco Use Types Packs/Day Years Used Date Smoking Tobacco: Never Assessed Comments Unknown Sex and Gender Information Value Date Recorded Sex Assigned at Not on file Legal Sex Female 5:22 AM EXHIBITION CARVER Gender Identity Not on file Sexual Orientation Not on file documented as of this encounter Plan of Treatment Not on file documented as of this encounter Visit Diagnoses Diagnosis Nausea with vomiting- Primary documented in this encounter Additional Health Concerns Infection Onset Date Last Indicated Resolved Time VRE Comment:Urine 10/30/13 Resolved 11/04/2013 11/04/2013 8 10:33 AM EXHIBITION CARVER R/O COVID-19 12/25/2019 12/25/2019 12/26/2019 2:46 PM CDT R/O COVID-19 05/09/2020 05/09/2020 05/09/2020 12:1 7 PM EXHIBITION CARVER documented as of this encounter Care Teams Band Splicer Relationship Specialty Start Date End Date Dara Tavera FNP [address] [place] [phone] PCP - General NURSE PRACTITIONER 10/13/18 documented as of this encounter
--- OUTSIDE RECORDS SUMMARY | 2025-02-09 23:01 | XMS_ITS | Encounter Summary ---
Author Organization [facility] Address [address] [place] [address] Care Team Providers Care Sales Product Specialist Name Role Phone Dara Tavera AMANDEEP Primary Care Provider Encounter Details Date Type Department Care Team (Late st Contact Info) Description 04/13/2007 Emergency [facility] Emergency Department [address] [place] [address] Flex Ricks MD NO ADDRESS ON FILE Other and Unspecified Noninfectious Gastroenteritis and Colitis (Primary Dx) Social History Tobacco Use Types Packs/Day Years Used Date Smoking Tobacco: Never Assessed Comments Unknown Sex and Gender Information Value Date Recorded Sex Assigned at Not on file Legal Sex Female 5:22 AM REFRACTORY GRINDER OPERATOR Gender Identity Not on file Sexual Orientation Not on file documented as of this encounter Plan of Treatment Not on file documented as of this encounter Procedures Procedure Name Priority Date/Time Associated Diagnosis Comments CBC WITH DIFFERENTIAL Routine 04/13/2007 2:57 PM CDT COMPREHENSIVE METABOLIC PANEL Routine 04/13/2007 2:57 PM CDT documented in this encounter Results * (ABNORMAL) COMPREHENSIVE METABOLIC PANEL (04/13/2007 2:57 PM CDT) GLUCOSE 97 70 - 110 mg/dL INTERFACE SYSTEM BUN 17 7 - 17 mg/dL INTERFACE SYSTEM CREATININE 0.9 0.7 - 1.2 mg/dL INTERFACE SYSTEM SODIUM 140 136 - 145 mEq/L INTERFACE SYSTEM POTASSIUM 4.0 3.5 - 5.0 mEq/L INTERFACE SYSTEM CHLORIDE 112(H) 95 - 110 mEq/L INTERFACE SYSTEM CO2 24 22 - 32 mmol/l INTERFACE SYSTEM CALCIUM 9.7 8.4 - 10.5 mg/dL INTERFACE SYSTEM TOTAL PROTEIN 7.3 6.3 - 8.2 g/dL INTERFACE SYSTEM ALBUMIN 4.5 3.5 - 5.0 g/dL INTERFACE SYSTEM ALKALINE PHOSPHATASE 135(H) 25 - 100 U/L INTERFACE SYSTEM AST 20 8 - 33 U/L INTERFACE SYSTEM ALT 27 4 - 36 IU/L INTERFACE SYSTEM BILIRUBIN TOTAL 0.2(L) 0.3 - 1.2 mg/dL INTERFACE SYSTEM GLOBULIN (CALC) 2.8 2.4 - 3.9 g/dL INTERFACE SYSTEM ALBUMIN/GLOBULIN RATIO 1.6 1.0 - 2.3 INTERFACE SYSTEM ANION GAP 8(L) 9 - 20 mEq/L INTERFACE SYSTEM OSMOLALITY, CALCULATED 289 275 - 295 mOsm/Kg INTERFACE SYSTEM 04/13/2007 2:57 PM CDT us Flex Ricks MD CHEMISTRY ORDERABLES Edite d INTERFACE SYSTEM Refer to clinic/hospital department * (ABNORMAL) CBC WITH DIFFERENTIAL (04/13/2007 2:57 PM CDT) WBC 10.6 4.5 - 11.0 K/ul INTERFACE SYSTEM RBC 4.78 4.20 - 5.40 Mil/ul INTERFACE SYSTEM HEMOGLOBIN 14.3 12.0 - 16.0 g/dL INTERFACE SYSTEM HEMATOCRIT 42.5 36.0 - 46.0 % INTERFACE SYSTEM MCV 88.9 84.0 - 103.0 Fl INTERFACE SYSTEM MCH 29.9 27.0 - 34.0 pg INTERFACE SYSTEM MCHC 33.6 30.0 - 35.0 g/dL INTERFACE SYSTEM RDW 14.0 11.0 - 14.5 % INTERFACE SYSTEM PLATELETS 257 140 - 440 K/ul INTERFACE SYSTEM MPV 10.4 8.9 - 12.8 Fl INTERFACE SYSTEM NEUTROPHILS 60.9 42.2 - 75.2 % INTERFACE SYSTEM LYMPHOCYTES 27.7 24.0 - 44.0 % INTERFACE SYSTEM MONOCYTES 7.9 2.0 - 10.0 % INTERFACE SYSTEM EOSINOPHILS 2.8 0.0 - 7.0 % INTERFACE SYSTEM BASOPHILS 0.7 0.0 - 1.0 % INTERFACE SYSTEM NEUTROPHIL ABSOLUTE 6.5 2.0 - 8.0 K/ul INTERFACE SYSTEM LYMPHOCYTE ABSOLUTE 2.9 1.2 - 4.0 K/ul INTERFACE SYSTEM MONOCYTE ABSOLUTE 0.8(H) 0.1 - 0.6 K/ul INTERFACE SYSTEM EOSINOPHIL ABSOLUTE 0.3 0.0 - 0.7 K/ul INTERFACE SYSTEM BASOPHILS ABSOLUTE 0.1 0.0 - 0.2 K/ul INTERFACE SYSTEM 04/13/2007 2:57 PM CDT us Flex Ricks MD HEMATOLOGY ORDERABLES Edit ed INTERFACE SYSTEM Refer to clinic/hospital department documented in this encounter Visit Diagnoses Diagnosis Other and unspecified noninfectious gastroenteritis and colitis(558.9)- Primary Other and unspecified noninfectious gastroenteritis and colitis documented in this encounter Additional Health Concerns Infection Onset Date Last Indicated Resolved Time VRE Comment:Urine 10/30/13 Resolved 11/04/2013 11/04/2013 8 10:33 AM REFRACTORY GRINDER OPERATOR R/O COVID-19 12/25/2019 12/25/2019 12/26/2019 2:46 PM CDT R/O COVID-19 05/09/2020 05/09/2020 05/09/2020 12:1 7 PM REFRACTORY GRINDER OPERATOR documented as of this encounter Care Teams Sales Product Specialist Relationship Specialty Start Date End Date Dara Tavera FNP [address] [place] [phone] PCP - General NURSE PRACTITIONER 10/13/18 documented as of this encounter
--- OUTSIDE RECORDS SUMMARY | 2025-02-09 23:01 | XMS_ITS | Encounter Summary ---
Author Organization [facility] Address [address] [place] [address] Care Team Providers Care Electoral Officer Name Role Phone Dara Tavera Primary Care Provider Encounter Details Date Type Department Care Team (Latest Contact Info) Description 02/20/2007 Outpatient Historical [facility] [address] [place] [address] AMBULANCE, [facility] Unspecified Nonpsychotic Mental Disorder (Primary Dx) Social History Tobacco Use Types Packs/Day Years Used Date Smoking Tobacco: Never Assessed Comments Unknown Sex and Gender Information Value Date Recorded Sex Assigned at Not on file Legal Sex Female 5:22 AM COUNTER CHECKER Gender Identity Not on file Sexual Orientation Not on file documented as of this encounter Plan of Treatment Not on file documented as of this encounter Visit Diagnoses Diagnosis Unspecified nonpsychotic mental disorder- Primary documented in this encounter Additional Health Concerns Infection Onset Date Last Indicated Resolved Time VRE Comment:Urine 10/30/13 Resolved 11/04/2013 11/04/2013 8 10:33 AM COUNTER CHECKER R/O COVID-19 12/25/2019 12/25/2019 12/26/2019 2:46 PM CDT R/O COVID-19 05/09/2020 05/09/2020 05/09/2020 12:1 7 PM COUNTER CHECKER documented as of this encounter Care Teams Electoral Officer Relationship Specialty Start Date End Date Dara Tavera FNP [address] [place] [phone] PCP - General NURSE PRACTITIONER 10/13/18 documented as of this encounter
--- OUTSIDE RECORDS SUMMARY | 2025-02-09 23:01 | XMS_ITS | Encounter Summary ---
Author Organization [facility] Address [address] [place] [address] Care Team Providers Care Combo Welder Name Role Phone Dara Tavera AMANDEEP Primary Care Provider Encounter Details Date Type Department Care Team (Latest Contact Info) Description 01/14/2007 Outpatient Historical [facility] [address] [place] [address] AMBULANCE, [facility] Hemorrhage of Rectum and Anus (Primary Dx) Social History Tobacco Use Types Packs/Day Years Used Date Smoking Tobacco: Never Assessed Comments Unknown Sex and Gender Information Value Date Recorded Sex Assigned at Not on file Legal Sex Female 5:22 AM SLAG MIXER Gender Identity Not on file Sexual Orientation Not on file documented as of this encounter Plan of Treatment Not on file documented as of this encounter Procedures Procedure Name Priority Date/Time Associated Diagnosis Comments CT ABDOMEN PELVIS W CONTRAST Routine 01/14/2007 2:24 PM CDT documented in this encounter Results * CT ABDOMEN PELVIS W CONTRAST (01/14/2007 2:24 PM CDT) Anatomical Region Laterality Modality Abdomen Other 01/14/2007 2:24 PM CDT Narrative 01/14/2007 2:24 PM CDT Exam: CT Abdomen, Pelvis, w/contrastDate/Time of Exam: Jan 14, 2007 5:15:54 PMHistory: Please see order comments. Technique: CT of the abdomen and pelvis was performed after the administration of oral, rectal andintravenous contrast. Contrast administered was 100 mL Optiray 240. Findings: Comparison is made with prior CT renal colic dated 07/02/2003. Liver is unremarkable. Postcholecystectomy status. Unremarkable spleen, pancreas, adrenals and kidneys. Small fat-containingumbilical hernia. Post-hysterectomy status. Unremarkable urinary bladder. No adnexal pathology. Stated history of prior appendectomy. No evidence of bowel obstruction. Surgical clips adjacent tothe left bladder base; clinical correlation recommended. Unremarkable lung bases. Mild degenerativechange in the spine. IMPRESSION: No evidence of acute abdominopelvic disease. Postsurgical findings and other minorfindings as above. - Dictated By: Wilmer Ho M.D. Electronically Signed By: Wilmer Ho M.D. Date Signed: 01/14/07 Procedure Note 05/09/2009 Exam: CT Abdomen, Pelvis, w/contrastDate/Time of Exam: Jan 14, 2007 5:15:54 PMHistory: Please see order comments. Technique: CT of the abdomen and pelvis was performed after the administration oforal, rectal andintravenous contrast. Contrast administered was 100 mL Optiray 240. Findings: Comparison is made with prior CT renal colic dated 07/02/2003. Liver isunremarkable. Postcholecystectomy status. Unremarkable spleen, pancreas, adrenals and kidneys. Smallfat-containingumbilical hernia. Post-hysterectomy status. Unremarkable urinary bladder. No adnexalpathology. Stated history of prior appendectomy. No evidence of bowel obstruction.Surgical clips adjacent tothe left bladder base; clinical correlation recommended. Unremarkable lungbases. Mild degenerativechange in the spine. IMPRESSION: No evidence of acute abdominopelvic disease. Postsurgical findings andother minorfindings as above. - Dictated By: Wilmer Ho M.D. Electronically Signed By: Wilmer Ho M.D. 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
--- OUTSIDE RECORDS SUMMARY | 2025-02-09 23:01 | XMS_ITS | Encounter Summary ---
Author Organization [facility] Address [address] [place] [address] Care Team Providers Care Toaster Element Repairer Name Role Phone Dara Tavera AMANDEEP Primary Care Provider Encounter Details Date Type Department Care Team (Late st Contact Info) Description 04/04/2007 Emergency [facility] Emergency Department [address] [place] [address] Thiago Mota MD NO ADDRESS ON FILE Painful Respiration (Primary Dx) Social History Tobacco Use Types Packs/Day Years Used Date Smoking Tobacco: Never Assessed Comments Unknown Sex and Gender Information Value Date Recorded Sex Assigned at Not on file Legal Sex Female 5:22 AM REFURBISH TECHNICIAN Gender Identity Not on file Sexual Orientation Not on file documented as of this encounter Plan of Treatment Not on file documented as of this encounter Procedures Procedure Name Priority Date/Time Associated Diagnosis Comments DRUG SCREEN, URINE Routine 04/04/2007 12 :16 PM CDT CARDIAC ENZYMES Routine 04/04/2007 12:00 PM CDT documented in this encounter Results * (ABNORMAL) DRUG SCREEN, URINE (04/04/2007 12:16 PM CDT) AMPHETAMINE QUAL, URINE Drug Negative Drug [...] reported as Positive. BARBITURATE QUAL, URINE Drug Negative Drug Negative INTERFACE SYSTEM COCAINE QUAL URINE Drug Negative Drug Negative INTERFACE SYSTEM PCP QUAL, URINE Drug Negative Drug Negative INTERFACE SYSTEM CANNABINOIDS QUAL, URINE Drug Negative Drug Negative INTERFACE SYSTEM BENZODIAZEPINE QUAL, URINE Drug Negative Drug Negative INTERFACE SYSTEM OPIATE QUAL, URINE Drug Positive(A) Drug Negative INTERFACE SYSTEM 04/04/2007 12:1 6 PM CDT Thiago Mota MD URINE ORDERABLES Edited Performing Organization Address [facility] Phone Number INTERFACE SYSTEM Refer to clinic/hospital department * CARDIAC ENZYMES (04/04/2007 12:00 PM CDT) Pathologist [facility] TROPONIN I <0.1 0.0 - 1.3 ng/mL INTERFACE SYSTEM Comment: As of 06 the Troponin Reference Range has changed from 0.0-1.5 ng/ml to 0.0- 1.3 ng/ml due to a change in testing methodology. CKMB 0.7 0.0 - 5.0 ng/mL INTERFACE SYSTEM 04/04/2007 12:0 0 PM CDT Thiago Mota MD CHEMISTRY ORDERABLES Edited Performing Organization Address 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
--- OUTSIDE RECORDS SUMMARY | 2025-02-09 23:01 | XMS_ITS | Encounter Summary ---
Author Organization [facility] Address [address] [place] [address] Care Team Providers Care Self Propelled Mining Machine Operator Name Role Phone Dara Tavera Primary Care Provider Encounter Details Date Type Department Care Team (Latest Contact Info) Description 02/22/2006 Outpatient [facility] [address] [place] [address] AMBULANCE, [facility] Cervicalgia (Primary Dx) Social History Tobacco Use Types Packs/Day Years Used Date Smoking Tobacco: Never Assessed Comments Unknown Sex and Gender Information Value Date Recorded Sex Assigned at Not on file Legal Sex Female 5:22 AM DIGITAL ENGINEER Gender Identity Not on file Sexual Orientation Not on file documented as of this encounter Plan of Treatment Not on file documented as of this encounter Visit Diagnoses Diagnosis Cervicalgia- Primary documented in this encounter Additional Health Concerns Infection Onset Date Last Indicated Resolved Time 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
--- OUTSIDE RECORDS SUMMARY | 2025-02-09 23:01 | XMS_ITS | Encounter Summary ---
Author Organization [facility] Address [address] [place] [address] Care Team Providers Care Bag Machine Set Up Operator Name Role Phone Dara Tavera Primary Care Provider [phone] Encounter Details Date Type Department Care Team (Latest Contact Info) Description 08/31/2005 Outpatient Historical [facility] [address] [place] [address] AMBULANCE, [facility] Other Injury of Abdomen (Primary Dx) Social History Tobacco Use Types Packs/Day Years Used Date Smoking Tobacco: Never Assessed Comments Unknown Sex and Gender Information Value Date Recorded Sex Assigned at Not on file Legal Sex Female 5:22 AM WATER CHEMIST Gender Identity Not on file Sexual Orientation Not on file documented as of this encounter Plan of Treatment Not on file documented as of this encounter Visit Diagnoses Diagnosis Other injury of abdomen- Primary documented in this encounter Additional Health Concerns Infection Onset Date Last Indicated Resolved Time VRE Comment:Urine 10/30/13 Resolved 11/04/2013 11/04/2013 8 10:33 AM WATER CHEMIST R/O COVID-19 12/25/2019 12/25/2019 12/26/2019 2:46 PM CDT R/O COVID-19 05/09/2020 05/09/2020 05/09/2020 12:1 7 PM WATER CHEMIST documented as of this encounter Care Teams Bag Machine Set Up Operator Relationship Specialty Start Date End Date Dara Tavera FNP [address] [place] [phone] PCP - General NURSE PRACTITIONER 10/13/18 documented as of this encounter
--- OUTSIDE RECORDS SUMMARY | 2025-02-09 23:01 | XMS_ITS | Encounter Summary ---
Author Organization [facility] Address [address] [place] [address] Care Team Providers Care Er Medical Technician Name Role Phone Dara Tavera Primary Care Provider Encounter Details Date Type Department Care Team (Latest Contact Info) Description 02/04/2007 Outpatient Historical [facility] [address] [place] [address] AMBULANCE, [facility] Cervicalgia (Primary Dx) Social History Tobacco Use Types Packs/Day Years Used Date Smoking Tobacco: Never Assessed Comments Unknown Sex and Gender Information Value Date Recorded Sex Assigned at Not on file Legal Sex Female 5:22 AM TOOL PROFILING MACHINE SET UP OPERATOR Gender Identity Not on file Sexual Orientation Not on file documented as of this encounter Plan of Treatment Not on file documented as of this encounter Visit Diagnoses Diagnosis Cervicalgia- Primary documented in this encounter Additional Health Concerns Infection Onset Date Last Indicated Resolved Time VRE Comment:Urine 10/30/13 Resolved 11/04/2013 11/04/2013 8 10:33 AM TOOL PROFILING MACHINE SET UP OPERATOR R/O COVID-19 12/25/2019 12/25/2019 12/26/2019 2:46 PM CDT R/O COVID-19 05/09/2020 05/09/2020 05/09/2020 12:1 7 PM TOOL PROFILING MACHINE SET UP OPERATOR documented as of this encounter Care Teams Er Medical Technician Relationship Specialty Start Date End Date Dara Tavera FNP [address] [place] [phone] PCP - General NURSE PRACTITIONER 10/13/18 documented as of this encounter
--- OUTSIDE RECORDS SUMMARY | 2025-02-09 23:01 | XMS_ITS | Encounter Summary ---
Author Organization [facility] Address [address] [place] [address] Care Team Providers Care Labor Delivery Specialist Name Role Phone Dara Tavera AIRCRAFT INSPECTION RECORD CLERK Primary Care Provider [phone] Encounter Details Date Type Department Care Team (Late st Contact Info) Description 06/14/2007 Outpatient Historical HIS IN BED Amaury De La Rosa MD NO ADDRESS ON FILE Richie Vargas Jr., MD [address] [place] [address] Social History Tobacco Use Types Packs/Day Years Used Date Smoking Tobacco: Never Assessed Comments Unknown Sex and Gender Information Value Date Recorded Sex Assigned at Not on file Legal Sex Female 5:22 AM PLASTER DIE MAKER Gender Identity Not on file Sexual Orientation Not on file documented as of this encounter Plan of Treatment Not on file documented as of this encounter Procedures Procedure Name Priority Date/Time Associated Diagnosis Comments URINALYSIS W/REFLEX MICROSCOPIC Routine 06/15/2007 12:13 PM PLASTER DIE MAKER POC GLUCOSE Routine 06/15/2007 11:42 AM PLASTER DIE MAKER POC GLUCOSE Routine 06/15/2007 5:10 AM PLASTER DIE MAKER CARDIAC ENZYMES Routine 06/15/2007 4:21 AM PLASTER DIE MAKER CBC WITH DIFFERENTIAL Routine 06/15/2007 4:21 AM PLASTER DIE MAKER TSH Routine 06/15/2007 4:21 AM PLASTER DIE MAKER T4 FREE Routine 06/15/2007 4:21 AM PLASTER DIE MAKER LIPID PANEL Routine 06/15/2007 4:21 AM PLASTER DIE MAKER COMPREHENSIVE METABOLIC PANEL Routine 06/15/2007 4:21 AM PLASTER DIE MAKER POC GLUCOSE Routine 06/15/2007 2:02 AM PLASTER DIE MAKER CARDIAC ENZYMES Routine 06/14/2007 10:20 PM PLASTER DIE MAKER CARDIAC ENZYMES Routine 06/14/2007 4:07 PM PLASTER DIE MAKER CBC WITH DIFFERENTIAL Routine 06/14/2007 4:07 PM PLASTER DIE MAKER PTT Routine 06/14/2007 4:07 PM PLASTER DIE MAKER PROTIME-INR Routine 06/14/2007 4:07 PM PLASTER DIE MAKER BASIC METABOLIC PANEL Routine 06/14/2007 4:07 PM PLASTER DIE MAKER documented in this encounter Results * URINALYSIS (06/15/2007 12:13 PM PLASTER DIE MAKER) COLOR UA Yellow Straw INTERFACE SYSTEM CLARITY [...] SYSTEM MICRO EXAM No No INTERFACE SYSTEM 06/15/2007 12:1 3 PM PLASTER DIE MAKER us Richie Vargas Jr., MD URINE ORDERABLES Edite d INTERFACE SYSTEM Refer to clinic/hospital department * (ABNORMAL) POC GLUCOSE (06/15/2007 11:42 AM PLASTER DIE MAKER) GLUCOSE POC 114(H) 60 - 100 mg/dL INTERFACE SYSTEM 06/15/2007 11:4 2 AM PLASTER DIE MAKER Result Tracey Vargas Jr., MD POINT OF CARE TESTING Edited Performing Organization Address [facility] Phone Number INTERFACE SYSTEM Refer to clinic/hospital department * (ABNORMAL) POC GLUCOSE (06/15/2007 5:10 AM PLASTER DIE MAKER) GLUCOSE POC 116(H) 60 - 100 mg/dL INTERFACE SYSTEM 06/15/2007 5:10 AM PLASTER DIE MAKER Result Tracey Vargas Jr., MD POINT OF CARE TESTING Edited Performing Organization Address [facility] Phone Number INTERFACE SYSTEM Refer to clinic/hospital department * TSH (06/15/2007 4:21 AM PLASTER DIE MAKER) TSH 1.340 0.350 - 5.500 uIU/ml INTERFACE SYSTEM 06/15/2007 4:21 AM PLASTER DIE MAKER Result Tracey Vargas Jr., MD CHEMISTRY ORDERABLES E dited Performing Organization Address [facility] Phone Number INTERFACE SYSTEM Refer to clinic/hospital department * (ABNORMAL) T4 FREE (06/15/2007 4:21 AM PLASTER DIE MAKER) T4 FREE 0.64(L) 0.89 - 1.76 ng/dL INTERFACE SYSTEM 06/15/2007 4:21 AM PLASTER DIE MAKER Result Tracey Vargas Jr., MD CHEMISTRY ORDERABLES E dited Performing Organization Address [facility] Phone Number INTERFACE SYSTEM Refer to clinic/hospital department * (ABNORMAL) LIPID PANEL (06/15/2007 4:21 AM PLASTER DIE MAKER) CHOLESTEROL 208(H) 75 - 200 mg/dL INTERFACE SYSTEM HDL 41 40 - 60 mg/dL INTERFACE SYSTEM TRIGLYCERIDE 206(H) 0 - 168 mg/dL INTERFACE SYSTEM CALCULATED LDL CHOLESTEROL 126 0 - 130 mg/dL INTERFACE SYSTEM CALCULATED TOTAL CHOLESTEROL TO HDL RATIO 5.07(H) 3.27 - 4.44 INTERFACE SYSTEM 06/15/2007 4:21 AM PLASTER DIE MAKER Richie Vargas Jr., MD CHEMISTRY ORDERABLES E dited Performing Organization Address [facility] Phone Number INTERFACE SYSTEM Refer to clinic/hospital department * (ABNORMAL) COMPREHENSIVE METABOLIC PANEL (06/15/2007 4:21 AM PLASTER DIE MAKER) GLUCOSE 94 70 - 110 mg/dL INTERFACE SYSTEM BUN 20(H) 7 - 17 mg/dL INTERFACE SYSTEM CREATININE 0.9 0.7 - 1.2 mg/dL INTERFACE SYSTEM SODIUM 140 136 - 145 mEq/L INTERFACE SYSTEM POTASSIUM 3.5 3.5 - 5.0 mEq/L INTERFACE SYSTEM CHLORIDE 111(H) 95 - 110 mEq/L INTERFACE SYSTEM CO2 20(L) 22 - 32 mmol/l INTERFACE SYSTEM CALCIUM 8.8 8.4 - 10.5 mg/dL INTERFACE SYSTEM TOTAL PROTEIN 6.4 6.3 - 8.2 g/dL INTERFACE SYSTEM ALBUMIN 3.9 3.5 - 5.0 g/dL INTERFACE SYSTEM ALKALINE PHOSPHATASE 140(H) 25 - 100 U/L INTERFACE SYSTEM AST 16 8 - 33 U/L INTERFACE SYSTEM ALT 16 4 - 36 IU/L INTERFACE SYSTEM BILIRUBIN TOTAL 0.3 0.3 - 1.2 mg/dL INTERFACE SYSTEM GLOBULIN (CALC) 2.5 2.4 - 3.9 g/dL INTERFACE SYSTEM ALBUMIN/GLOBULIN RATIO 1.6 1.0 - 2.3 INTERFACE SYSTEM ANION GAP 13 9 - 20 mEq/L INTERFACE SYSTEM OSMOLALITY, CALCULATED 289 275 - 295 mOsm/Kg INTERFACE SYSTEM 06/15/2007 4:21 AM PLASTER DIE MAKER Richie Vargas Jr., MD CHEMISTRY ORDERABLES E dited Performing Organization Address [facility] Phone Number INTERFACE SYSTEM Refer to clinic/hospital department * (ABNORMAL) CBC WITH DIFFERENTIAL (06/15/2007 4:21 AM PLASTER DIE MAKER) WBC 13.1(H) 4.5 - 11.0 K/ul INTERFACE SYSTEM RBC 4.05(L) 4.20 - 5.40 Mil/ul INTERFACE SYSTEM HEMOGLOBIN 12.0 12.0 - 16.0 g/dL INTERFACE SYSTEM HEMATOCRIT 36.2 36.0 - 46.0 % INTERFACE SYSTEM MCV 89.4 84.0 - 103.0 Fl INTERFACE SYSTEM MCH 29.6 27.0 - 34.0 pg INTERFACE SYSTEM MCHC 33.1 30.0 - 35.0 g/dL INTERFACE SYSTEM RDW 13.9 11.0 - 14.5 % INTERFACE SYSTEM PLATELETS 205 140 - 440 K/ul INTERFACE SYSTEM MPV 10.5 8.9 - 12.8 Fl INTERFACE SYSTEM NEUTROPHILS 71.7 42.2 - 75.2 % INTERFACE SYSTEM LYMPHOCYTES 15.5(L) 24.0 - 44.0 % INTERFACE SYSTEM MONOCYTES 8.2 2.0 - 10.0 % INTERFACE SYSTEM EOSINOPHILS 4.1 0.0 - 7.0 % INTERFACE SYSTEM BASOPHILS 0.5 0.0 - 1.0 % INTERFACE SYSTEM NEUTROPHIL ABSOLUTE 9.4(H) 2.0 - 8.0 K/ul INTERFACE SYSTEM LYMPHOCYTE ABSOLUTE 2.0 1.2 - 4.0 K/ul INTERFACE SYSTEM MONOCYTE ABSOLUTE 1.1(H) 0.1 - 0.6 K/ul INTERFACE SYSTEM EOSINOPHIL ABSOLUTE 0.5 0.0 - 0.7 K/ul INTERFACE SYSTEM BASOPHILS ABSOLUTE 0.1 0.0 - 0.2 K/ul INTERFACE SYSTEM 06/15/2007 4:21 AM PLASTER DIE MAKER Richie Vargas Jr., MD HEMATOLOGY ORDERABLES Edited Performing Organization Address [facility] [[email or web address] de Phone Number INTERFACE SYSTEM Refer to clinic/hospital department * CARDIAC ENZYMES (06/15/2007 4:21 AM PLASTER DIE MAKER) TROPONIN I <0.1 0.0 - 1.3 ng/mL INTERFACE SYSTEM CKMB 1.0 0.0 - 5.0 ng/mL INTERFACE SYSTEM 06/15/2007 4:21 AM PLASTER DIE MAKER Amaury De La Rosa MD CHEMISTRY ORDERABLES Edited Performing Organization Address City/[facility]/ZIP Co de Phone Number INTERFACE SYSTEM Refer to clinic/hospital department * (ABNORMAL) POC GLUCOSE (06/15/2007 2:02 AM PLASTER DIE MAKER) GLUCOSE POC 115(H) 60 - 100 mg/dL INTERFACE SYSTEM 06/15/2007 2:02 AM PLASTER DIE MAKER us Richie Vargas Jr., MD POINT OF CARE TESTING Edited Performing Organization Address [facility] Phone Number INTERFACE SYSTEM Refer to clinic/hospital department * CARDIAC ENZYMES (06/14/2007 10:20 PM PLASTER DIE MAKER) Pathologist [facility] TROPONIN I <0.1 0.0 - 1.3 ng/mL INTERFACE SYSTEM CKMB 0.3 0.0 - 5.0 ng/mL INTERFACE SYSTEM 06/14/2007 10:2 0 PM PLASTER DIE MAKER Amaury De La Rosa MD CHEMISTRY ORDERABLES Edited Performing Organization Address [facility] Phone Number INTERFACE SYSTEM Refer to clinic/hospital department * (ABNORMAL) CBC WITH DIFFERENTIAL (06/14/2007 4:07 PM PLASTER DIE MAKER) Pathologist [facility] WBC 14.3(H) 4.5 - 11.0 K/ul INTERFACE SYSTEM RBC 4.45 4.20 - 5.40 Mil/ul INTERFACE SYSTEM HEMOGLOBIN 13.2 12.0 - 16.0 g/dL INTERFACE SYSTEM HEMATOCRIT 39.1 36.0 - 46.0 % INTERFACE SYSTEM MCV 87.9 84.0 - 103.0 Fl INTERFACE SYSTEM MCH 29.7 27.0 - 34.0 pg INTERFACE SYSTEM MCHC 33.8 30.0 - 35.0 g/dL INTERFACE SYSTEM RDW 13.8 11.0 - 14.5 % INTERFACE SYSTEM PLATELETS 226 140 - 440 K/ul INTERFACE SYSTEM MPV 10.2 8.9 - 12.8 Fl INTERFACE SYSTEM NEUTROPHILS 70.4 42.2 - 75.2 % INTERFACE SYSTEM LYMPHOCYTES 20.2(L) 24.0 - 44.0 % INTERFACE SYSTEM MONOCYTES 5.8 2.0 - 10.0 % INTERFACE SYSTEM EOSINOPHILS 3.1 0.0 - 7.0 % INTERFACE SYSTEM BASOPHILS 0.5 0.0 - 1.0 % INTERFACE SYSTEM NEUTROPHIL ABSOLUTE 10.1(H) 2.0 - 8.0 K/ul INTERFACE SYSTEM LYMPHOCYTE ABSOLUTE 2.9 1.2 - 4.0 K/ul INTERFACE SYSTEM MONOCYTE ABSOLUTE 0.8(H) 0.1 - 0.6 K/ul INTERFACE SYSTEM EOSINOPHIL ABSOLUTE 0.4 0.0 - 0.7 K/ul INTERFACE SYSTEM BASOPHILS ABSOLUTE 0.1 0.0 - 0.2 K/ul INTERFACE SYSTEM 06/14/2007 4:07 PM PLASTER DIE MAKER Amaury De La Rosa MD HEMATOLOGY ORDERABLES Edited Performing Organization Address [facility] Phone Number INTERFACE SYSTEM Refer to clinic/hospital department * PTT (06/14/2007 4:07 PM PLASTER DIE MAKER) PTT 34.4 21.6 - 35.6 Secs INTERFACE SYSTEM 06/14/2007 4:07 PM PLASTER DIE MAKER Amaury De La Rosa MD HEMATOLOGY ORDERABLES Edited Performing Organization Address [facility] Phone Number INTERFACE SYSTEM Refer to clinic/hospital department * PROTIME-INR (06/14/2007 4:07 PM PLASTER DIE MAKER) PROTIME 14.0 13.0 - 15.7 Secs INTERFACE SYSTEM INR 1.0 INTERFACE SYSTEM 06/14/2007 4:07 PM PLASTER DIE MAKER Amaury De La Rosa MD HEMATOLOGY ORDERABLES Edited Performing Organization Address [facility] Phone Number INTERFACE SYSTEM Refer to clinic/hospital department * (ABNORMAL) BASIC METABOLIC PANEL (06/14/2007 4:07 PM PLASTER DIE MAKER) GLUCOSE 90 70 - 110 mg/dL INTERFACE SYSTEM BUN 18(H) 7 - 17 mg/dL INTERFACE SYSTEM CREATININE 0.9 0.7 - 1.2 mg/dL INTERFACE SYSTEM SODIUM 141 136 - 145 mEq/L INTERFACE SYSTEM POTASSIUM 3.6 3.5 - 5.0 mEq/L INTERFACE SYSTEM CHLORIDE 115(H) 95 - 110 mEq/L INTERFACE SYSTEM CO2 22 22 - 32 mmol/l INTERFACE SYSTEM CALCIUM 9.6 8.4 - 10.5 mg/dL INTERFACE SYSTEM ANION GAP 8(L) 9 - 20 mEq/L INTERFACE SYSTEM OSMOLALITY, CALCULATED 290 275 - 295 mOsm/Kg INTERFACE SYSTEM 06/14/2007 4:07 PM PLASTER DIE MAKER Amaury De La Rosa MD CHEMISTRY ORDERABLES Edited Performing Organization Address [facility] [[email or web address]] de Phone Number INTERFACE SYSTEM Refer to clinic/hospital department * CARDIAC ENZYMES (06/14/2007 4:07 PM PLASTER DIE MAKER) TROPONIN I <0.1 0.0 - 1.3 ng/mL INTERFACE SYSTEM CKMB 1.3 0.0 - 5.0 ng/mL INTERFACE SYSTEM 06/14/2007 4:07 PM PLASTER DIE MAKER Amaury De La Rosa MD CHEMISTRY ORDERABLES Edited Performing Organization Address [facility] Phone Number INTERFACE SYSTEM Refer to clinic/hospital department documented in this encounter Visit Diagnoses Not on filedocumented in this encounter Additional Health Concerns Infection Onset Date Last Indicated Resolved Time VRE Comment:Urine 10/30/13 Resolved 11/04/2013 11/04/2013 8 10:33 AM PLASTER DIE MAKER R/O COVID-19 12/25/2019 12/25/2019 12/26/2019 2:46 PM CDT R/O COVID-19 05/09/2020 05/09/2020 05/09/2020 12:1 7 PM PLASTER DIE MAKER documented as of this encounter Care Teams Labor Delivery Specialist Relationship Specialty Start Date End Date Dara Tavera FNP [address] [place] [phone] PCP - General NURSE PRACTITIONER 10/13/18 documented as of this encounter
--- OUTSIDE RECORDS SUMMARY | 2025-02-09 23:01 | XMS_ITS | Encounter Summary ---
Author Organization [facility] Address [address] [place] [address] Care Team Providers Care Ditch Repairer Name Role Phone Dara Tavera Primary Care Provider Encounter Details Date Type Department Care Team (Latest Contact Info) Description 04/13/2006 Outpatient Historical [facility] [address] [place] [address] AMBULANCE, [facility] Nausea with Vomiting (Primary Dx) Social History Tobacco Use Types Packs/Day Years Used Date Smoking Tobacco: Never Assessed Comments Unknown Sex and Gender Information Value Date Recorded Sex Assigned at Not on file Legal Sex Female 5:22 AM DATA PROCESSING AUDITOR Gender Identity Not on file Sexual Orientation Not on file documented as of this encounter Plan of Treatment Not on file documented as of this encounter Visit Diagnoses Diagnosis Nausea with vomiting- Primary documented in this encounter Additional Health Concerns Infection Onset Date Last Indicated Resolved Time VRE Comment:Urine 10/30/13 Resolved 11/04/2013 11/04/2013 8 10:33 AM DATA PROCESSING AUDITOR R/O COVID-19 12/25/2019 12/25/2019 12/26/2019 2:46 PM CDT R/O COVID-19 05/09/2020 05/09/2020 05/09/2020 12:1 7 PM DATA PROCESSING AUDITOR documented as of this encounter Care Teams Ditch Repairer Relationship Specialty Start Date End Date Dara Tavera FNP [address] [place] [phone] PCP - General NURSE PRACTITIONER 10/13/18 documented as of this encounter
--- OUTSIDE RECORDS SUMMARY | 2025-02-09 23:01 | XMS_ITS | Encounter Summary ---
Author Organization [facility] Address [address] [place] [address] Care Team Providers Care Cloth Measurer Machine Name Role Phone Dara Tavera Primary Care Provider Encounter Details Date Type Department Care Team (Latest Contact Info) Description 12/03/2005 Outpatient Historical [facility] [address] [place] [address] AMBULANCE, [facility] Disruption of External Operation Wound, not Elsewhere Classified (Primary Dx) Social History Tobacco Use Types Packs/Day Years Used Date Smoking Tobacco: Never Assessed Comments Unknown Sex and Gender Information Value Date Recorded Sex Assigned at Not on file Legal Sex Female 5:22 AM DIE ENGRAVER Gender Identity Not on file Sexual Orientation Not on file documented as of this encounter Plan of Treatment Not on file documented as of this encounter Visit Diagnoses Diagnosis Disruption of external operation (surgical) wound- Primary documented in this encounter Additional Health Concerns Infection Onset Date Last Indicated Resolved Time 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
--- OUTSIDE RECORDS SUMMARY | 2025-02-09 23:01 | XMS_ITS | Encounter Summary ---
Author Organization [email or web address] Address [address] [place] [address] Care Team Providers Care News Internship Name Role Phone Dara Tavera PULP MILL SUPERVISOR Primary Care Provider Encounter Details Date Type Department Care Team (Late st Contact Info) Description 02/13/2007 Outpatient Historical [facility] Alisa Ross MD [address] [place] [id number] Social History Tobacco Use Types Packs/Day Years Used Date Smoking Tobacco: Never Assessed Comments Unknown Sex and Gender Information Value Date Recorded Sex Assigned at Not on file Legal Sex Female 5:22 AM INTEGRATED LOGISTICS SUPPORT MANAGER Gender Identity Not on file Sexual Orientation Not on file documented as of this encounter Plan of Treatment Not on file documented as of this encounter Procedures Procedure Name Priority Date/Time Associated Diagnosis Comments MRI CERVICAL WO CONTRAST Routine 02/13/2007 5:39 AM CDT documented in this encounter Results * MRI CERVICAL WO CONTRAST (02/13/2007 5:39 AM CDT) Anatomical Region Laterality Modality Spine Other 02/13/2007 5:39 AM CDT Narrative 02/13/2007 5:39 AM CDT MRI cervical spine without contrast. Date: 02/13/2007. History: 41-year-old female with neck pain. Technique: Multiplanar multisequence MR images were obtained without contrast. Comparison: 11/29/2006. Findings: Cervical alignment again shows a reversed lordosis which is unchanged in degree and mayreflect myofascial dysfunction. Vertebral body and disc space height are grossly preserved. Earlydisc desiccation and annular bulging over C5-C6 and C6-C7. There does appear to be a very subtleleft lateral/foraminal disc protrusion on the left at C5-C6 which was not definitely present on theprior study. This may be affecting exiting left C6 nerve root at this level. The cervical cordsignal appears normal. Early ventral spondylophyte formation at C5-C6 and C6-C7, greatest atC6-C7. 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 There now appears anne-marie a new left paracentral and lateral/foraminal disc protrusion at C5-C6 which may be affectingexiting left C6 nerve root. - Dictated By: Oswald Corral D.O. Electronically Signed By: Oswald Corral D.O. Date Signed: 02/13/07 SDM Procedure Note 05/10/2009 MRI cervical spine without contrast. Date: 02/13/2007. History: 41-year-old female with neck pain. Technique: Multiplanar multisequence MR images were obtained without contrast. Comparison: 11/29/2006. Findings: Cervical alignment again shows a reversed lordosis which is unchanged indegree and mayreflect myofascial dysfunction. Vertebral body and disc space height are grossly preserved.Earlydisc desiccation and annular bulging over C5-C6 and C6-C7. There does appear to be a verysubtleleft lateral/foraminal disc protrusion on the left at C5-C6 which was not definitely present ontheprior study. This may be affecting exiting left C6 nerve root at this level. The cervical cordsignal appearsnormal. Early ventral spondylophyte formation at C5-C6 and C6-C7, greatest atC6-C7. 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 Therenow appears anne-marie a new left paracentral and lateral/foraminal disc protrusion at C5-C6 which may beaffectingexiting left C6 nerve root. - Dictated By: Oswald Corral D.O. Electronically Signed By: Oswald Corral D.O. Date Signed: 02/13/07 SDM Ronnell Ross MD MR ORDERABLES Final Result documented in this encounter Visit Diagnoses Not on filedocumented in this encounter Additional Health Concerns Infection Onset Date Last Indicated Resolved Time VRE Comment:Urine 10/30/13 Resolved 11/04/2013 11/04/2013 8 10:33 AM INTEGRATED LOGISTICS SUPPORT MANAGER R/O COVID-19 12/25/2019 12/25/2019 12/26/2019 2:46 PM CDT R/O COVID-19 05/09/2020 05/09/2020 05/09/2020 12:1 7 PM INTEGRATED LOGISTICS SUPPORT MANAGER documented as of this encounter Care Teams News Internship Relationship Specialty Start Date End Date Dara Tavera FNP [address] [place] [phone] PCP - General NURSE PRACTITIONER 10/13/18 documented as of this encounter
--- OUTSIDE RECORDS SUMMARY | 2025-02-09 23:01 | XMS_ITS | Encounter Summary ---
Author Organization [facility] Address [address] [place] [address] Care Team Providers Care Fisher Diving Name Role Phone Dara Tavera Primary Care Provider Encounter Details Date Type Department Care Team (Latest Contact Info) Description 02/07/2006 Outpatient Historical [facility] Medicine [place] [address] [facility] [address] [place] [address] Ryan Don NP NO ADDRESS ON FILE Polydipsia (Primary Dx); Nausea Alone; Open Wnd Anterior Abdomen Social History Tobacco Use Types Packs/Day Years Used Date Smoking Tobacco: Never Assessed Comments Unknown Sex and Gender Information Value Date Recorded Sex Assigned at Not on file Legal Sex Female 5:22 AM HARD ROCK DRILL OPERATOR Gender Identity Not on file Sexual Orientation Not on file documented as of this encounter Plan of Treatment Not on file documented as of this encounter Visit Diagnoses Diagnosis Polydipsia- Primary Nausea alone Open wound of abdominal wall, anterior, without mention of complication documented in this encounter Additional Health Concerns Infection Onset Date Last Indicated Resolved Time VRE Comment:Urine 10/30/13 Resolved 11/04/2013 11/04/2013 8 10:33 AM HARD ROCK DRILL OPERATOR R/O COVID-19 12/25/2019 12/25/2019 12/26/2019 2:46 PM CDT R/O COVID-19 05/09/2020 05/09/2020 05/09/2020 12:1 7 PM HARD ROCK DRILL OPERATOR documented as of this encounter Care Teams Fisher Diving Relationship Specialty Start Date End Date Dara Tavera FNP [address] [place] [address] PCP - General NURSE PRACTITIONER 10/13/18 documented as of this encounter
--- OUTSIDE RECORDS SUMMARY | 2025-02-09 23:01 | XMS_ITS | Encounter Summary ---
Author Organization [facility] Address [address] [place] [address] Care Team Providers Care Plaster Patternmaker Name Role Phone Dara Tavera AMANDEEP Primary Care Provider Encounter Details Date Type Department Care Team (Latest Contact Info) Description 12/16/2005 Outpatient Historical [facility]- [address] [place] [phone] Ryan Don NP NO ADDRESS ON FILE Abdominal Pain, Unspecified Site (Primary Dx); Other Specified Disease of White Blood Cells; Cellulitis and Abscess of Unspecified Site; Nausea with Vomiting Social History Tobacco Use Types Packs/Day Years Used Date Smoking Tobacco: Never Assessed Comments Unknown Sex and Gender Information Value Date Recorded Sex Assigned at Not on file Legal Sex Female 5:22 AM FASHION SHOW DIRECTOR Gender Identity Not on file Sexual Orientation Not on file documented as of this encounter Plan of Treatment Not on file documented as of this encounter Visit Diagnoses Diagnosis Abdominal pain, unspecified site- Primary Other specified disease of white blood cells Cellulitis and abscess of unspecified site Nausea with vomiting documented in this encounter Additional Health Concerns Infection Onset Date Last Indicated Resolved Time VRE Comment:Urine 10/30/13 Resolved 11/04/2013 11/04/2013 8 10:33 AM FASHION SHOW DIRECTOR R/O COVID-19 12/25/2019 12/25/2019 12/26/2019 2:46 PM CDT R/O COVID-19 05/09/2020 05/09/2020 05/09/2020 12:1 7 PM FASHION SHOW DIRECTOR documented as of this encounter Care Teams Plaster Patternmaker Relationship Specialty Start Date End Date Dara Tavera FNP [address] [place] [phone] PCP - General NURSE PRACTITIONER 10/13/18 documented as of this encounter
--- OUTSIDE RECORDS SUMMARY | 2025-02-09 23:02 | XMS_ITS | Encounter Summary ---
Author Organization [facility] Address [address] [place] [address] Care Team Providers Care Teletype Operator Name Role Phone Dara Tavera AMANDEEP Primary Care Provider [phone] Encounter Details Date Type Department Care Team (Late st Contact Info) Description 01/15/[address] [facility] Emergency Department [address] [place] [address] Raji Reyes MD NO ADDRESS ON FILE Unspecified, Hemorrhage of Gastrointestinal Tract (Primary Dx) Social History Tobacco Use Types Packs/Day Years Used Date Smoking Tobacco: Never Assessed Comments Unknown Sex and Gender Information Value Date Recorded Sex Assigned at Not on file Legal Sex Female 5:22 AM PLATFORM MAN Gender Identity Not on file Sexual Orientation Not on file documented as of this encounter Plan of Treatment Not on file documented as of this encounter Procedures Procedure Name Priority Date/Time Associated Diagnosis Comments CBC WITH DIFFERENTIAL Routine 01/15/2007 9:00 AM CDT HCG QUANTITATIVE, BLOOD Routine 01/15/2007 9:00 AM CDT LIPASE Routine 01/15/2007 9:00 AM CDT COMPREHENSIVE METABOLIC PANEL Routine 01/15/2007 9:00 AM CDT documented in this encounter Results * BETA HCG QUANTITATIVE, BLOOD (01/15/2007 9:00 AM CDT) CHORIONIC GONADOTROPIN, TOTAL <2.0 0.0 - 10.0 mlU/ML INTERFACE SYSTEM Comment: Total HCG levels between 10 mIU/mL and 25 mIU/mL may be indicative of early but need to be correlated with other clinical findings. HCG ranges during normal , as reported by the brand marketing specialist, are summarized as follows: Gestational Age Expected hCG Values (mIU/ml) 0.2-1 Weeks 5 - 50 1-2 Weeks 50 - 500 2-3 Weeks 100 - 5,000 3-4 Weeks 1,000 - 50,000 5-6 Weeks 10,000 - 100,000 6-8 Weeks 15,000 - 200,000 2-3 Months 10,000 - 100,000 01/15/2007 9:00 AM CDT Raji Reyes MD CHEMISTRY ORDERABLES Edited Performing Organization Address [facility] Phone Number INTERFACE SYSTEM Refer to clinic/hospital department * LIPASE (01/15/2007 9:00 AM CDT) [facility] LIPASE 27 6 - 51 U/L INTERFACE SYSTEM Comment: As of 05 the [facility] has changed testing methods. The new reference range is 6-51 The old referance range was 23-300 01/15/2007 9:00 AM CDT Raji Reyes MD CHEMISTRY ORDERABLES Edited Performing Organization Address [facility] de Phone Number INTERFACE SYSTEM Refer to clinic/hospital department * (ABNORMAL) COMPREHENSIVE METABOLIC PANEL (01/15/2007 9:00 AM CDT) [facility] GLOBULIN (CALC) 2.8 2.4 - 3.9 g/dL INTERFACE SYSTEM ALBUMIN/GLOBULIN RATIO 1.5 1.0 - 2.3 INTERFACE SYSTEM GLUCOSE 95 70 - 110 mg/dL INTERFACE SYSTEM BUN 14 7 - 17 mg/dL INTERFACE SYSTEM CREATININE 1.0 0.7 - 1.2 mg/dL INTERFACE SYSTEM SODIUM 140 136 - 145 mEq/L INTERFACE SYSTEM POTASSIUM 4.1 3.5 - 5.0 mEq/L INTERFACE SYSTEM Comment:Specimen slightly he molyzed CHLORIDE 112(H) 95 - 110 mEq/L INTERFACE SYSTEM CO2 17(L) 22 - 32 mmol/l INTERFACE SYSTEM CALCIUM 9.4 8.4 - 10.5 mg/dL INTERFACE SYSTEM TOTAL PROTEIN 6.9 6.3 - 8.2 g/dL INTERFACE SYSTEM ALBUMIN 4.1 3.5 - 5.0 g/dL INTERFACE SYSTEM ALKALINE PHOSPHATASE 163(H) 25 - 100 U/L INTERFACE SYSTEM AST 29 8 - 33 U/L INTERFACE SYSTEM ALT 33 4 - 36 IU/L INTERFACE SYSTEM BILIRUBIN TOTAL 0.2(L) 0.3 - 1.2 mg/dL INTERFACE SYSTEM ANION GAP 15 9 - 20 mEq/L INTERFACE SYSTEM OSMOLALITY, CALCULATED 288 275 - 295 mOsm/Kg INTERFACE SYSTEM 01/15/2007 9:00 AM CDT us Raji Reyes MD CHEMISTRY ORDERABLES Edited INTERFACE SYSTEM Refer to clinic/hospital department * (ABNORMAL) CBC WITH DIFFERENTIAL (01/15/2007 9:00 AM CDT) WBC 8.2 4.5 - 11.0 K/ul INTERFACE SYSTEM RBC 4.84 4.20 - 5.40 Mil/ul INTERFACE SYSTEM HEMOGLOBIN 14.2 12.0 - 16.0 g/dL INTERFACE SYSTEM HEMATOCRIT 42.0 36.0 - 46.0 % INTERFACE SYSTEM MCV 86.8 84.0 - 103.0 Fl INTERFACE SYSTEM MCH 29.3 27.0 - 34.0 pg INTERFACE SYSTEM MCHC 33.8 30.0 - 35.0 g/dL INTERFACE SYSTEM RDW 12.9 11.0 - 14.5 % INTERFACE SYSTEM PLATELETS 183 140 - 440 K/ul INTERFACE SYSTEM MPV 10.8 8.9 - 12.8 Fl INTERFACE SYSTEM NEUTROPHILS 57.4 42.2 - 75.2 % INTERFACE SYSTEM LYMPHOCYTES 27.4 24.0 - 44.0 % INTERFACE SYSTEM MONOCYTES 9.4 2.0 - 10.0 % INTERFACE SYSTEM EOSINOPHILS 5.2 0.0 - 7.0 % INTERFACE SYSTEM BASOPHILS 0.6 0.0 - 1.0 % INTERFACE SYSTEM NEUTROPHIL ABSOLUTE 4.7 2.0 - 8.0 K/ul INTERFACE SYSTEM LYMPHOCYTE ABSOLUTE 2.3 1.2 - 4.0 K/ul INTERFACE SYSTEM MONOCYTE ABSOLUTE 0.8(H) 0.1 - 0.6 K/ul INTERFACE SYSTEM EOSINOPHIL ABSOLUTE 0.4 0.0 - 0.7 K/ul INTERFACE SYSTEM BASOPHILS ABSOLUTE 0.1 0.0 - 0.2 K/ul INTERFACE SYSTEM 01/15/2007 9:00 AM CDT us Raji Reyes MD HEMATOLOGY ORDERABLES Edited INTERFACE SYSTEM Refer to clinic/hospital department documented in this encounter Visit Diagnoses Diagnosis Hemorrhage of gastrointestinal tract, unspecified- Primary documented in this encounter Additional Health Concerns Infection Onset Date Last Indicated Resolved Time VRE Comment:Urine 10/30/13 Resolved 11/04/2013 11/04/2013 8 10:33 AM PLATFORM MAN R/O COVID-19 12/25/2019 12/25/2019 12/26/2019 2:46 PM CDT R/O COVID-19 05/09/2020 05/09/2020 05/09/2020 12:1 7 PM PLATFORM MAN documented as of this encounter Care Teams Teletype Operator Relationship Specialty Start Date End Date Dara Tavera FNP [address] [place] [id number] PCP - General NURSE PRACTITIONER 10/13/18 documented as of this encounter
--- OUTSIDE RECORDS SUMMARY | 2025-02-09 23:02 | XMS_ITS | Encounter Summary ---
[facility] Organization [facility] Address [address] [place] [address] Care Team Providers Care Shift Mechanic Name Role Phone Dara Tavera Primary Care Provider Encounter Details Date Type Department Care Team (Latest Contact Info) Description 12/18/2006 Outpatient Historical [facility] [address] [place] [address] AMBULANCE, [facility] Other Chest Pain (Primary Dx) Social History Tobacco Use Types Packs/Day Years Used Date Smoking Tobacco: Never Assessed Comments Unknown Sex and Gender Information Value Date Recorded Sex Assigned at Not on file Legal Sex Female 5:22 AM PUBLIC AFFAIRS SPECIALIST Gender Identity Not on file Sexual Orientation Not on file documented as of this encounter Plan of Treatment Not on file documented as of this encounter Visit Diagnoses Diagnosis Other chest pain- Primary documented in this encounter Additional Health Concerns Infection Onset Date Last Indicated Resolved Time VRE Comment:Urine 10/30/13 Resolved 11/04/2013 11/04/2013 8 10:33 AM PUBLIC AFFAIRS SPECIALIST R/O COVID-19 12/25/2019 12/25/2019 12/26/2019 2:46 PM CDT R/O COVID-19 05/09/2020 05/09/2020 05/09/2020 12:1 7 PM PUBLIC AFFAIRS SPECIALIST documented as of this encounter Care Teams Shift Mechanic Relationship Specialty Start Date End Date Dara Tavera FNP [address] [place] [phone] PCP - General NURSE PRACTITIONER 10/13/18 documented as of this encounter
--- OUTSIDE RECORDS SUMMARY | 2025-02-09 23:02 | XMS_ITS | Clinical Summary ---
Author Organization [facility] Address [address] [place] [address] Care Team Providers Care Manager Clinical Applications Name Role Phone Sally Dong MD Primary Care Provider [phone] Allergies Active Allergy Reactions Criticality Noted Date Comments Adhesive Rash Low 02/12/2009 Codeine Nausea and Vomiting Low 02/12/2009 Duloxetine Other (See Comments) 02/24/2015 Fentanyl Hives High 11/07/2019 Fluoxetine Unknown 10/20/2018 Gabapentin Unknown,Hallucination Low 02/12/2009 Haloperidol Unknown 01/04/2022 Tardive dyskinesia Ketorolac Tromethamine Other (See Comments) Low Adverse drug reaction [place] Unknown 02/12/2009 Other reaction(s): shakey Metoclopramide Hcl [...] Gram by mouth 2 times daily. Active prochlorperazin e (COMPAZINE) 25 mg Suppository Insert 1 Suppository (25 mg) by rectum every 12 hours as needed for Nausea/Emesis. 10 Suppository 1 07/27/19 25 Active famotidine (PEPCID) 20 mg tablet Take 20 mg by mouth 2 times daily. Active promethazine (PHENERGAN) 25 mg tablet Take 25 mg by mouth every 6 hours as needed for Nausea/Emesis. Active naloxone (NARCAN) 4 mg/spray [place], Non-Aerosol EMERGENCY USE ONLY: Administer 1 spray (4 mg) in one nostril one time. May repeat in alternating nostrils every 2-3 min until responsive or EMS arrives. 2 Each 3 11/23/19 25 Active diphenoxylate-a tropine 2.5 mg-0.025 mg tablet Take 1 Tablet by mouth 4 times daily as needed for Diarrhea/Loose Stools. 30 Tablet 12/20/19 25 Active acetaminophen (TYLENOL ARTHRITIS) 650 mg Extended Release tablet Take 650 mg by mouth every 6 hours as needed for Pain. Active vortioxetine (Trintellix) 5 mg tablet Take 5 mg by mouth daily. Active orphenadrine (NORFLEX) 100 mg Extended Release tablet Take 1 Tablet (100 mg) by mouth 2 times daily. 20 Tablet 02/10/20 25 Active Active Problems Problem Noted Date Diagnosed Date Excessive flatus 01/14/2025 Constipation due to slow transit 01/14/2025 Wheezing on expiration 11/14/2024 Infected sebaceous cyst [...] Hematochezia 07/07/2009 10/26/2012 Personal history of MRSA (tn thicillin resistant Staphylococcus aureus) 06/27/2009 018 Overview (10/14/2020): Under the arm abscess ~ 2014 Fever and chills 02/12/2009 10/26/2012 Hypoxemia 02/12/2009 04/06/2014 Encounters Date Type Department Care Team Description 02/09/2025 9:24 AM CDT - 02/09/2025 10:00 AM T [facility] Emergency Medicine [address] [facility] [address] [place] [address] Tommy Matthews MD Cervicalgia (Primary Dx) Discharge Disposition: Home or Self Care 02/09/2025 Travel 02/01/2025 5:38 PM CDT - 02/01/2025 7:27 PM T [facility] Emergency Medicine [address] [facility] [address] [place] [address] Tommy Matthews MD Abdominal pain, unspecified abdominal location (Primary Dx); Chest pain, unspecified type Discharge Disposition: Home or Self Care 02/01/2025 Travel 01/19/2025 6:21 PM CDT - 01/19/2025 7:53 PM T [facility] Emergency Medicine [address] [facility] [address] [place] [address] Sanju Montero DO Sindlinger, Timothy S, MD Flank pain (Primary Dx); Chronic pain syndrome Discharge Disposition: Home or Self Care 01/14/2025 3:31 PM CDT - 01/14/2025 6:45 PM CDT [facility] Emergency Medicine [address] [place] [address] Corinna Sarabia MD Constipation due to slow transit (Primary Dx); Excessive flatus Discharge Disposition: Home or Self Care 01/14/2025 Travel 01/05/2025 6:10 AM CDT - 01/05/2025 11:59 PM CDT Hospital Encounter [facility] [address] [place] [address] Ambulance, [facility] Discharge Disposition: [facility] 01/02/2025 7:39 PM CDT - 01/02/2025 7:55 PM CDT [facility] [address] [place] [address] Discharge Disposition: Left without being seen 12/27/2024 4:43 PM CDT - 12/27/2024 6:58 PM CDT [facility] Emergency Medicine [address] [place] [address] Johnathan Andres DO Acute right-sided low back pain with right-sided sciatica (Primary Dx) Discharge Disposition: Home or Self Care 12/19/2024 5:02 PM CDT - 12/19/2024 9:04 PM CDT [address] [place] [address] Sanju Montero DO Sindlinger, Timothy S, MD Chronic abdominal pain (Primary Dx); Chronic diarrhea Discharge Disposition: Home or Self Care 12/19/2024 5:48 AM CDT - 12/19/2024 11:59 PM CDT Hospital Encounter [facility] [address] [place] [address] Ambulance, [facility] Discharge Disposition: [facility] 12/17/2024 External Device Data STL ABSTRACTION Provider, Abstract 12/12/2024 6:58 PM CDT - 12/12/2024 7:58 PM CDT Emergency [facility] Emergency Medicine [address] [facility] [address] [place] [address] Sea Leon MD Generalized abdominal pain (Primary Dx) Discharge Disposition: Home or Self Care 12/11/2024 6:40 PM CDT - 12/11/2024 7:23 PM CDT [facility] Emergency [facility] [address] [facility] [address] [place] [phone] Tommy Matthews MD Sciatica of right side (Primary Dx) Discharge Disposition: Home or Self Care 12/06/2024 7:06 PM CDT - 12/06/2024 7:56 PM CDT [facility] Emergency Medicine [address] [facility] [address] [place] [phone] Mohinder Dumont DO Chronic right-sided back pain, unspecified back location (Primary Dx) Discharge Disposition: Home or Self Care 12/06/2024 Travel 12/04/2024 8:36 PM CDT - 12/04/2024 10:43 PM CDT [facility] Emergency [facility] [address] [facility] [address] [place] [address] Mohinder Dumont DO Contusion of right hip, initial encounter (Primary Dx) Discharge Disposition: Home or Self Care 12/04/2024 Travel 12/03/2024 Orders Only [facility] Admitting [address] [facility] [address] [place] [phone] Dara Tavera, TALENT ACQUISITION PROGRAM MANAGER Low back pain with bilateral sciatica, unspecified back pain laterality, unspecified chronicity (Primary Dx) 11/30/2024 9:21 PM CDT - 11/30/2024 11:07 PM CDT [facility] Emergency Medicine [address] [facility] [address] [place] [address] Sea Leon MD Generalized abdominal pain (Primary Dx) Discharge Disposition: Home or Self Care 11/30/2024 Travel 11/27/2024 12:15 AM CDT - 11/27/2024 11:59 PM CDT Hospital Encounter [facility] Emergency Medical Services [place] [address] [place] [address] Ambulance, [facility] Discharge Disposition: [facility] 11/22/2024 6:27 PM CDT - 11/22/2024 8:53 PM CDT Emergency [facility] Emergency Medicine [address] [facility] [address] [place] [address] Tommy Matthews MD Lumbar radiculopathy (Primary Dx) Discharge Disposition: Home or Self Care 11/21/2024 3:14 PM CDT - 11/21/2024 11:59 PM CDT Hospital Encounter [facility] [address] [address] Dara Tavera FNP Discharge Disposition: Home or Self Care 11/17/2024 12:15 AM CDT - 11/17/2024 11:59 PM CDT Hospital Encounter [facility] [address] [facility] [address] [place] [address] Ambulance, [facility] Discharge Disposition: [facility] 11/14/2024 6:04 PM CDT - 11/14/2024 7:31 PM CDT Emergency [facility] Emergency Medicine [address] [address] Corinna Sarabia MD Starnes, Sea Aragon MD Chronic generalized abdominal pain (Primary Dx); Wheezing on expiration; Nausea Discharge Disposition: Home or Self Care from Last 3 Months Immunizations Immunization Administration [...] asked 05/05/2019 How often do you attend pentecostalism or anglican serv ices? Not asked 05/05/2019 Do you belong to any clubs o r organizations such as pentecostalism groups, unions, fraternal or athletic groups, or [...] PM CDT Legal Sex Female 2:06 AM STRATEGY PLANNING CONSULTANT Gender Identity Female 03/25/2024 4:14 PM CDT Sexual Orientation Not on file Last Filed Vital Signs Vital Sign Reading Time Taken Comments Blood Pressure 92/66 02/09/2025 9:26 AM CDT Pulse 72 02/01/2025 6:45 PM CDT Temperature 36.2 C (97.2 F) 02/09/2025 9:26 AM CDT Respiratory Rate 24 02/09/2025 9:26 AM CDT Oxygen Saturation 99% 02/09/2025 9:26 AM CDT Inhaled Oxygen Concentration - - Weight 74.4 kg (164 lb) 02/09/2025 9:26 AM CDT Height 157.5 cm (5' 2 ) 02/09/2025 9:26 AM CDT Body Mass Index 30 02/09/2025 9:26 AM CDT Plan of Treatment Health Maintenance Due [...] 5TH GEN Stat 02/01/2025 5:53 PM CDT BRAIN NATRIURETIC PEPTIDE, BNP OR PROBNP Stat 02/01/2025 5:53 PM CDT COMPREHENSIVE METABOLIC PANEL Stat 02/01/2025 5:53 PM CDT CBC WITH DIFFERENTIAL Stat 02/01/2025 5:[address] ABDOMEN PELVIS WO CONTRAST Stat 01/19/2025 7:11 PM CDT DIFFERENTIAL, MANUAL Stat 01/19/2025 6:37 PM CDT COMPREHENSIVE METABOLIC PANEL Stat 01/19/2025 6:37 PM CDT CBC WITH DIFFERENTIAL Stat 01/19/2025 6:37 PM CDT C-REACTIVE PROTEIN Stat 01/19/2025 6: 37 PM CDT AMYLASE Stat 01/19/2025 6:37 PM CDT LIPASE Stat 01/19/2025 6:[address] ABDOMEN PELVIS WO CONTRAST Stat 01/14/2025 4:40 PM CDT URINALYSIS W/REFLEX MICROSCOPIC Stat 01/14/2025 4:[address] ABDOMEN PELVIS W CONTRAST Stat 12/19/2024 7:07 PM CDT COMPREHENSIVE METABOLIC PANEL Stat 12/19/2024 4:16 PM CDT CBC WITH DIFFERENTIAL Stat 12/19/2024 4:16 PM CDT XR HIP 2 OR 3 VIEWS RT Stat 9:53 PM CDT XR LUMBAR SPINE 2 OR 3 VW Routine 11/21/2024 3:20 PM CDT Acute back pain with sciatica, unspecified laterality HEMOGLOBIN A1C Routine 06/17/2018 7:12 AM STRATEGY PLANNING CONSULTANT from Last 3 Months or Most Recently Relevant to Health Maintenance Results * XR CHEST PA OR AP [...] pneumothorax is seen. IMPRESSION: Bilateral pulmonary edema. us Tommy Matthews MD DIAGNOSTIC IMAGING ORDER KAYLEE Final Result * TROPONIN BASELINE, 5TH GEN (02/01/2025 5:53 PM CDT) TROPONIN T, BASELINE 5TH GEN 6 <=10 ng/L 02/01/2025 6:42 PM CDT [facility] Blood Venipuncture / Unknown 02/01/2025 5:53 PM CDT 02/01/2025 6:24 PM CDT Narrative [facility] - 02/01/2025 6:42 PM CDT Troponin Detectable but normal range. Tommy Matthews MD CHEMISTRY ORDERABLES Fin al Result [facility] CLIA # [id number] [address] [place] [address] * (ABNORMAL) CBC WITH DIFFERENTIAL (02/01/2025 5:53 PM CDT) Only the most recent of3 resultswithin the time period is included. WBC 7.0 4.0 - 10.0 K/uL 02/01/2025 6:27 PM [facility] RBC 3.72(L) 3.93 - 5.22 M/uL 02/01/2025 6:27 PM [facility] HEMOGLOBIN 12.3 11.2 - 15.7 g/dL 02/01/2025 6:27 PM [facility] HEMATOCRIT 35.9 34.1 - 44.9 % 02/01/2025 6:27 PM [facility] MCV 96.5(H) 79.4 - 94.8 fL 02/01/2025 6:27 PM [facility] MCH 33.1(H) 25.6 - 32.2 pg 02/01/2025 6:27 PM [facility] MCHC 34.3 32.2 - 35.5 g/dL 02/01/2025 6:27 PM [facility] RDW 13.6 11.0 - 14.5 % 02/01/2025 6:27 PM [facility] RDW-STDEV 48.5 36.9 - 56.9 fL 02/01/2025 6:27 PM [facility] PLATELETS 209 163 - 337 K/uL 02/01/2025 6:27 PM [facility] MPV 10.0 10.0 - 14.8 fL 02/01/2025 6:27 PM [facility] NEUTROPHILS 46 34 - 71 % 02/01/2025 6:27 PM [facility] LYMPHOCYTES 40 19 - 52 % 02/01/2025 6:27 PM [facility] MONOCYTES 10 5 - 13 % 02/01/2025 6:27 PM CDT [facility] EOSINOPHILS 3 1 - 6 % 02/01/2025 6:27 PM CDT [facility] BASOPHILS 1 0 - 1 % 02/01/2025 6:27 PM [facility] IMMATURE GRANULOCYTES 0 % 02/01/2025 6:27 PM T [facility] NEUTROPHIL ABSOLUTE 3.18 1.56 - 6.13 K/uL 02/01/2025 6:27 PM [facility] LYMPHOCYTE ABSOLUTE 2.81 1.20 - 3.40 K/uL 02/01/2025 6:27 PM [facility] MONOCYTE ABSOLUTE 0.70(H) 0.24 - 0.36 K/uL 02/01/2025 6:27 PM [facility] EOSINOPHIL ABSOLUTE 0.22 0.04 - 0.36 K/uL 02/01/2025 6:27 PM [facility] BASOPHILS ABSOLUTE 0.07 0.01 - 0.08 K/uL 02/01/2025 6:27 PM [facility] IMMATURE GRANULOCYTES ABSOLUTE 0.02 K/uL 02/01/2025 6:27 PM [facility] Blood Venipuncture / Unknown 02/01/2025 5:53 PM CDT 02/01/2025 6:24 PM CDT Tommy Matthews MD HEMATOLOGY ORDERABLES Fi nal Result [id number] [address] [place] [address] * (ABNORMAL) BRAIN NATRIURETIC PEPTIDE, BNP OR PROBNP (02/01/2025 5:53 PM CDT) PROBNP, N TERMINAL 260(H) 0 - 125 pg/mL 02/01/2025 6:42 PM T [facility] Comment: INTERPRETIVE COMMENT based on diagnosis: [...] Matthews MD CHEMISTRY ORDERABLES Fin al Result [facility] [id number] [address] [place] [address] * (ABNORMAL) COMPREHENSIVE METABOLIC PANEL (02/01/2025 5:53 PM CDT) Only the most recent of3 resultswithin the time period is included. SODIUM 135(L) 136 - 145 mmol/L 02/01/2025 6:42 PM [facility] POTASSIUM 3.8 3.5 - 5.1 mmol/L 02/01/2025 6:42 PM [facility] CHLORIDE 101 98 - 107 mmol/L 02/01/2025 6:42 PM [facility] CO2 21(L) 22 - 29 mmol/L 02/01/2025 6:42 PM [facility] CALCIUM 9.4 8.6 - 10.0 mg/dL 02/01/2025 6:42 PM [facility] BUN 14 6 - 20 mg/dL 02/01/2025 6:42 PM [facility] CREATININE 1.01(H) 0.51 - 0.95 mg/dL 02/01/2025 6:42 PM [facility] GLUCOSE 108(H) 74 - 99 mg/dL 02/01/2025 6:42 PM [facility] TOTAL PROTEIN 6.3(L) 6.6 - 8.7 g/dL 02/01/2025 6:42 PM CDT [facility] ALBUMIN 4.0 3.5 - 5.2 g/dL 02/01/2025 6:42 PM CDT [facility] BILIRUBIN TOTAL 0.2 0.0 - 1.2 mg/dL 02/01/2025 6:42 PM CDT [facility] ALKALINE PHOSPHATASE 93 35 - 104 U/L 02/01/2025 6:42 PM CDT [facility] AST 17 0 - 35 U/L 02/01/2025 6:42 PM CDT [facility] ALT 11 0 - 35 U/L 02/01/2025 6:42 PM [facility] GFR >60 >=60 mL/min/1.7 3 sq meter 02/01/2025 6:42 PM T [facility] Comment:eGFR calculated with 2020 CKD-EPI equation. Vegetarian diet, extremely high or low muscle mass, and may affect results. Cystatin C with Glomerular Filtration Rate is a suitable alternative for these patients. ANION GAP 13 5 - 20 mmol/L 02/01/2025 6:42 PM CDT [facility] Blood Venipuncture / Unknown 02/01/2025 5:53 PM CDT 02/01/2025 6:24 PM CDT us Tommy Matthews MD CHEMISTRY ORDERABLES Fin al Result [facility] [id number] [address] [place] [address] * CT ABDOMEN PELVIS WO CONTRAST (01/19/2025 7:11 PM CDT) Only the most recent of2 resultswithin the time period is included. Anatomical Region Laterality Modality Abdomen Computed Tomogra phy 01/19/2025 6:58 PM CDT Impressions 01/19/2025 7:35 PM CDT IMPRESSION: Similar appearance of the nonobstructing right renal calculi. No hydronephrosis. Otherwise chronic changes. MACRO: None Narrative 01/19/2025 7:35 PM CDT EXAMINATION: CT ABDOMEN PELVIS WO CONTRAST CLINICAL HISTORY: ASSOCIATED DIAGNOSIS: Flank pain, stone disease suspected;UTI, recurrent/complicated (Female) ORDERING PROVIDER: SANJU GARCIA NOTE: COMPARISON: January 14, 2025. TECHNIQUE: Contiguous axial images were obtained through the abdomen and pelvis from the level of the diaphragmatic domes through the pubic symphysis. MPR sagittal and coronal reconstructions were obtained from the axial data. FINDINGS: Included images of the lower thorax: Emphysematous changes seen within the lung bases. A few scattered foci of groundglass airspace opacification. Hepatobiliary: No biliary dilation evident. The gallbladder is surgically absent. Pancreas: Unremarkable Spleen: Unremarkable Adrenal Glands: Unremarkable Kidneys, ureters, and bladder: Nonobstructing calculus within lower pole right kidney is again seen. No hydronephrosis. Abdominal and pelvic vasculature: Atherosclerotic wall calcifications are present without aneurysm. GI tract: No evidence of obstruction. The appendix is not visualized. Peritoneum and retroperitoneum: No free fluid or free air. Lymph Nodes: No lymphadenopathy. Uterus and adnexa: Status post hysterectomy. Pelvic floor laxity with bladder cystocele again noted. Visualized musculoskeletal structures: Degenerative disc disease and degenerative facet arthropathy is present within the spine. There is no significant listhesis. Procedure Note Rizwan Raymond MD - 01/19/2025 EXAMINATION: CT ABDOMEN PELVIS WO CONTRAST CLINICAL HISTORY: ASSOCIATED DIAGNOSIS: Flank pain, stone disease suspected;UTI, recurrent/complicated (Female) ORDERING PROVIDER: SANJU GARCIA NOTE: COMPARISON: January 14, 2025. TECHNIQUE: Contiguous axial images were obtained through the abdomen and pelvis from the level of the diaphragmatic domes through the pubic symphysis. MPR sagittal and coronal reconstructions were obtained from the axial data. FINDINGS: Included images of the lower thorax: Emphysematous changes seen within the lung bases. A few scattered foci of groundglass airspace opacification. Hepatobiliary: No biliary dilation evident. The gallbladder is surgically absent. Pancreas: Unremarkable Spleen: Unremarkable Adrenal Glands: Unremarkable Kidneys, ureters, and bladder: Nonobstructing calculus within lower pole right kidney is again seen. No hydronephrosis. Abdominal and pelvic vasculature: Atherosclerotic wall calcifications are present without aneurysm. GI tract: No evidence of obstruction. The appendix is not visualized. Peritoneum and retroperitoneum: No free fluid or free air. Lymph Nodes: No lymphadenopathy. Uterus and adnexa: Status post hysterectomy. Pelvic floor laxity with bladder cystocele again noted. Visualized musculoskeletal structures: Degenerative disc disease and degenerative facet arthropathy is present within the spine. There is no significant listhesis. IMPRESSION: Similar appearance of the nonobstructing right renal calculi. No hydronephrosis. Otherwise chronic changes. MACRO: None Sanju Montero DO CT ORDERABLES Final Result * MANUAL DIFFERENTIAL (01/19/2025 6:37 PM CDT) PLATELET EST. Consistent w Count 01/19/2025 7:01 PM CDT [facility] RBC MORPHOLOGY Normal 01/19/2025 7:01 PM CDT [facility] Blood Venipuncture / Unknown 01/19/2025 6:37 PM CDT 01/19/2025 6:48 PM CDT Sanju Montero DO HEMATOLOGY ORDERABLES COM Fin al Result Performing Organization Address City/[facility]/ZIP Co de Phone Number [facility] CLIA # [id number] [address] [place] [address] * (ABNORMAL) C-REACTIVE PROTEIN (01/19/2025 6:37 PM CDT) CRP 28.8(H) <5.0 mg/L 01/19/2025 7:05 PM CDT [facility] Blood Venipuncture / Unknown 01/19/2025 6:37 PM CDT 01/19/2025 6:48 PM CDT Sanju Montero DO CHEMISTRY ORDERABLES Final Re sult [facility] CLIA # [id number] [address] [place] [address] * LIPASE (01/19/2025 6:37 PM CDT) LIPASE 19 13 - 60 U/L 01/19/2025 7:05 PM CDT [facility] Blood Venipuncture / Unknown 01/19/2025 6:37 PM CDT 01/19/2025 6:48 PM CDT Sanju [facility] CHEMISTRY ORDERABLES Final Re sult Performing Organization Address City/[facility]/ZIP Co de Phone Number [facility] CLIA # [id number] [address] [place] [address] * AMYLASE (01/19/2025 6:37 PM CDT) AMYLASE 33 28 - 100 U/L 01/19/2025 7:05 PM CDT [facility] Blood Venipuncture / Unknown 01/19/2025 6:37 PM CDT 01/19/2025 6:48 PM CDT us [employer] CHEMISTRY ORDERABLES Final Re sult Performing Organization Address [facility]/ZIP Co de Phone Number [facility] CLIA # [id number] [address] [place] [address] * (ABNORMAL) URINALYSIS WITH REFLEX MICROSCOPIC (01/14/2025 4:08 PM CDT) COLOR UA Yellow Pale to Dark Yellow 01/14/2025 4:22 PM CDT [facility] CLARITY UA Clear Clear 01/14/2025 4:22 PM CDT [facility] SPECIFIC GRAVITY UA 1.010 1.003 - 1.035 01/14/2025 4:22 PM CDT [facility] PH UA 6.0 5.0 - 8.0 01/14/2025 4:22 PM CDT [facility] LEUKOCYTE ESTERASE UA Trace(A) Negative 01/14/2025 4:22 PM CDT [facility] NITRITE UA Negative Negative 01/14/2025 4:22 PM CDT [facility] PROTEIN UA Negative Negative 01/14/2025 4:22 PM CDT [facility] GLUCOSE UA Negative Negative 01/14/2025 4:22 PM CDT [facility] KETONES UA Negative Negative 01/14/2025 4:22 PM CDT [facility] UROBILINOGEN UA 0.2 <2.0 mg/dL 4:22 PM CDT [facility] BILIRUBIN UA Negative Negative 01/14/2025 4:22 PM CDT [facility] BLOOD UA Trace(A) Negative 01/14/2025 4:22 PM CDT [facility] Urine URINE SPECIMEN OBTAINED BY CLEAN CATCH PROCEDURE / Unknown Collection / Unknown 01/14/2025 4:08 PM CDT 01/14/2025 4:20 PM CDT Corinna Sarabia MD URINE ORDERABLES Final Result [facility] CLIA # [id number] [address] [place] [address] * CT ABDOMEN PELVIS W CONTRAST (12/19/2024 [...] acute abdominopelvic pathology. Incidental findings as above. Sanjuharley Montero DO CT ORDERABLES Final Result * XR HIP 2 OR 3 VIEWS [...] spine, similar to the prior examination. Dara Tavera TALENT ACQUISITION PROGRAM MANAGER DIAGNOSTIC IMAGING ORDERABL ES Final Result * HEMOGLOBIN A1C (06/17/2018 7:12 AM STRATEGY PLANNING CONSULTANT) HEMOGLOBIN A1C 5.2 4.8 - 5.9 % 06/17/2018 9:37 AM STRATEGY PLANNING CONSULTANT [facility] EST. AVG GLUCOSE, A1C 103 mg/dL 06/17/2018 9:37 AM [facility] Blood Venipuncture / Unknown 06/17/2018 7:12 AM STRATEGY PLANNING CONSULTANT 06/17/2018 7:13 AM STRATEGY PLANNING CONSULTANT Narrative [facility] - 06/17/2018 9:37 AM STRATEGY PLANNING CONSULTANT If not available from last three months. HGB A1C INTERPRETATION NORMAL: <5.7% PRE-DIABETES: 5.7 - 6.4% DIABETES: 6.5% OR GREATER Benedicto Mcgill MD CHEMISTRY ORDERABLES Final Result Performing Organization Address City/State/[facility] Co de Phone Number [facility] [id number] [address] [place] [address] [facility] CLIA # [id number] [address] [place] [address] from Last 3 Months or Most Recently Relevant to Health Maintenance Insurance MEDICAID [place] MEDICAID [place] Advance Directives For more information, please contact: [phone] Documents on File Type Date Recorded Patient Medical Coding Specialist Expl anation Advance Directive POA 02/23/2024 3:51 [...] 1:52 AM 10/27/2021 2:07 PM Care Teams Manager Clinical Applications Relationship Specialty Start Date End Date Sally Dong MD [address] [phone] PCP - General Family Practice 04/07/22
--- OUTSIDE RECORDS SUMMARY | 2025-02-09 23:02 | XMS_ITS | Encounter Summary ---
Author Organization [facility] Address [address] [facility] Attn: [place] [address] Care Team Providers Care Supplier Manager Name Role Phone Sally Dong MD Primary Care Provider Encounter Details Date Type Department Care Team (Latest Contact Info) Description 02/09/2025 Travel Social History Tobacco Use Types Packs/Day Years Used Date Smoking Tobacco: Former Cigarettes Smokeless Tobacco: Never Alcohol Use Standard [...] asked 05/05/2019 How often do you attend hoahaoism or jewish serv ices? Not asked 05/05/2019 Do you belong to any clubs o r organizations such as hoahaoism groups, unions, fraternal or athletic groups, or [...] PM CDT Legal Sex Female 2:06 AM SEO SPECIALIST Gender Identity Female 03/25/2024 4:14 PM CDT Sexual Orientation Not on file documented as of this encounter Plan of Treatment Not on file documented as of this encounter Visit Diagnoses Not on filedocumented in this encounter Additional Health Concerns Assessment Noted Time PHQ-9 Depression Total Score: 3 10/01/19 23 4:46 PM CDT documented as of this encounter Care Teams Supplier Manager Relationship Specialty Start Date End Date Sally Dong MD [address] [facility] [address] [place] [address] PCP - General Family Practice 04/07/22 documented as of this encounter
--- OUTSIDE RECORDS SUMMARY | 2025-02-09 23:02 | XMS_ITS | Encounter Summary ---
Author Organization [employer] Address [address] [place] [address] Care Team Providers Care Automotive Parts Specialist Name Role Phone Dara Tavera SOURCE INSPECTOR Primary Care Provider Encounter Details Date Type Department Care Team (Late st Contact Info) Description 11/29/2006 Outpatient Historical [facility] Luis Ross MD [address] [address] Social History Tobacco Use Types Packs/Day Years Used Date Smoking Tobacco: Never Assessed Comments Unknown Sex and Gender Information Value Date Recorded Sex Assigned at Not on file Legal Sex Female 5:22 AM SPRAY OPERATOR Gender Identity Not on file Sexual Orientation Not on file documented as of this encounter Plan of Treatment Not on file documented as of this encounter Procedures Procedure Name Priority Date/Time Associated Diagnosis Comments MRI LUMBAR WO CONTRAST Routine 11/29/2006 6:26 AM CDT MRI CERVICAL WO CONTRAST Routine 11/29/2006 6:26 AM CDT documented in this encounter Results * MRI CERVICAL WO CONTRAST (11/29/2006 6:26 AM CDT) Anatomical Region Laterality Modality Spine Other 11/29/2006 6:26 AM CDT Narrative 11/29/2006 6:26 AM CDT Multiplanar imaging of the cervical spine was performed without IV gadolinium. History: Neck pain and right upper extremity pain and numbness. No comparison study is available. No significant focal bony lesion or acute fracture is identified. Cervical spinal cord is unremarkable. There is mild cervical lordosis. Cervical discs are within normal limits without significant bulgeor herniation. No spinal stenosis or significant foraminal narrowing is identified. Impression: No significant abnormality. - Dictated By: Lionel Hays M.D. Electronically Signed By: Lionel Hays M.D. Date Signed: 11/29/06 [facility] Procedure Note 05/09/2009 Multiplanar imaging of the cervical spine was performed without IVgadolinium. History: Neck pain and right upper extremity pain and numbness. No comparison studyis available. No significant focal bony lesion or acute fracture is identified. Cervicalspinal cord is unremarkable. There is mild cervical lordosis. Cervical discs are within normal limitswithout significant bulgeor herniation. No spinal stenosis or significant foraminal narrowing isidentified. Impression: No significant abnormality. - Dictated By: Lionel Hays M.D. Electronically Signed By: Lionel Hays M.D. Date Signed: 11/29/06 [facility] Luis Ross MD MR ORDERABLES Final Result * MRI LUMBAR WO CONTRAST (11/29/2006 6:26 AM CDT) Anatomical Region Laterality Modality Spine Other 11/29/2006 6:26 AM CDT Narrative 11/29/2006 6:26 AM CDT Multiplanar imaging of the lumbar spine was performed without IV gadolinium. History: Low back pain with pain down the right leg to the toes with numbness in the right foot. Correlation is made with the report from the previous MRI of the lumbar spine from 02/22/2005. No significant focal bony lesion or acute fracture is identified. Conus is unremarkable. T12-L1: There is a small right subarticular disc protrusion with minimal narrowing of the thecal sac. This could affect the traversing right L1 nerve root. L1-L2 and L2-L3: No significant disc abnormality is seen. There is a moderate sized hemangioma in the L3 vertebral body. L3-L4: No significant abnormality. L4-L5: A tiny central disc protrusion is present. L5-S1: No significant abnormality. Impression: Tiny central disc protrusion at L4-L5 and small right sided disc protrusion at T12-L1. See above discussion. - Dictated By: Lionel Hays M.D. Electronically Signed By: Lionel Hays M.D. Date Signed: 11/29/06 Procedure Note 05/09/2009 Multiplanar imaging of the lumbar spine was performed without IVgadolinium. History: Low back pain with pain down the right leg to the toes with numbness inthe right foot. Correlation is made with the report from the previous MRI of the lumbarspine from 02/22/2005. No significant focal bony lesion or acute fracture is identified. Conus isunremarkable. T12-L1: There is a small right subarticular disc protrusion with minimal narrowingof the thecal sac. This could affect the traversing right L1 nerve root. L1-L2 and L2-L3: No significant disc abnormality is seen. There is a moderate sized hemangioma in the L3 vertebral body. L3-L4: No significant abnormality. L4-L5: A tiny central disc protrusion is present. L5-S1: No significant abnormality. Impression: Tiny central disc protrusion at L4-L5 and small right sided discprotrusion at T12-L1. See above discussion. - Dictated By: Lionel Hays M.D. Electronically Signed By: Lionel Hays M.D. 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
--- OUTSIDE RECORDS SUMMARY | 2025-02-09 23:02 | XMS_ITS | Encounter Summary ---
Author Organization [employer] [facility] Address [address] [place] [address] Care Team Providers Care Director Of Religious Life Name Role Phone Dara Tavera Primary Care Provider Encounter Details Date Type Department Care Team (Late st Contact Info) Description 09/07/2020 Ancillary Orders [facility] [address] [place] [address] Dara Tavera FNP [address] [place] [address] Pain in left foot Social History Tobacco Use Types Packs/Day Years Used Date Smoking Tobacco: Every Day Cigarettes 0.3 25 Started: 05/02/1995; Last attempted to quit: 05/02/2020 Smokeless Tobacco: Never Alcohol Use Standard Drinks/Week Comments No 0 [...] asked 05/05/2019 How often do you attend sikhism or bahai serv ices? Not asked 05/05/2019 Do you belong to any clubs o r organizations such as sikhism groups, unions, fraternal or athletic groups, or [...] on file Legal Sex Female 5:22 AM LIVING SKILLS ADVISOR Gender Identity Not on file Sexual Orientation Not on file Occupation Industry Job Start Date Job End Date Not on file Not on file Not on file Not on file Not on file Not on file Not on file Not on file COVID-19 Exposure Response Date Recorded In the last month, have you been in contact with someone who was confirmed or suspected to have Coronavirus / COVID-19? No / Unsure 09/08/2020 11:35 AM CDT documented as of this encounter Plan of Treatment Not on file documented as of this encounter Results * XR FOOT 2 VW LEFT (09/07/2020 9:30 AM CDT) Anatomical Region Laterality Modality Ankle / Foot Computed Radiogr aphy 09/07/2020 9:33 AM CDT Impressions 09/07/2020 1:46 PM CDT IMPRESSION: Please see below. Exam: XR FOOT 2 VW LEFT Date/Time of Exam: 09/07/2020 9:30 AM Reason For Exam: See Diagnosis. Diagnosis: Pain in left foot. Comparison: 08/22/2017. Findings: Two views of the foot demonstrate no acute fracture or dislocation. Diffuse osteopenia is present. Patient is status post second tarsometatarsal arthrodesis. No bridging trabeculated bone across the second tarsometatarsal joint is present. Severe joint space loss with marginal osteophyte formation and subchondral cystic change of the tarsometatarsal joints greatest about the first and second tarsometatarsal joints present. Mild lateral subluxation of the hallucal sesamoid complex is present. Diffuse osteopenia is present. No additional significant joint space loss or productive change is identified. Small plantar calcaneal spur is present. Of note 50% of the asymptomatic population has this finding. Impression: 1. Negative for acute osseous abnormality. 2. Status post second tarsometatarsal arthrodesis without bridging trabeculated bone identified to suggest osseous union. 3. Osteoarthritis of the tarsometatarsal joints. [id number] Narrative Procedure Note Akira Liu MD - 09/07/2020 IMPRESSION: Please see below. Exam: XR FOOT 2 VW LEFT Date/Time of Exam: 09/07/2020 9:30 AM Reason For Exam: See Diagnosis. Diagnosis: Pain in left foot. Comparison: 08/22/2017. Findings: Two views of the foot demonstrate no acute fracture or dislocation. Diffuse osteopenia is present. Patient is status post second tarsometatarsal arthrodesis. No bridging trabeculated bone across the second tarsometatarsal joint is present. Severe joint space loss with marginal osteophyte formation and subchondral cystic change of the tarsometatarsal joints greatest about the first and second tarsometatarsal joints present. Mild lateral subluxation of the hallucal sesamoid complex is present. Diffuse osteopenia is present. No additional significant joint space loss or productive change is identified. Small plantar calcaneal spur is present. Of note 50% of the asymptomatic population has this finding. Impression: 1. Negative for acute osseous abnormality. 2. Status post second tarsometatarsal arthrodesis without bridging trabeculated bone identified to suggest osseous union. 3. Osteoarthritis of the tarsometatarsal joints. [id number] Dara [facility] ORDERABL ES Final Result documented in this encounter Visit Diagnoses Diagnosis Pain in left foot Pain in limb Pain in left foot Pain in limb documented in this encounter Care Teams Director Of Religious Life Relationship Specialty Start Date End Date Dara Tavera FNP [address] [place] [phone] PCP - General NURSE PRACTITIONER 10/13/18 documented as of this encounter
--- OUTSIDE RECORDS SUMMARY | 2025-02-09 23:02 | XMS_ITS | Encounter Summary ---
Author Organization [facility] Address [address] [place] [address] Care Team Providers Care Measurer Machine Name Role Phone Dara Tavera Primary Care Provider Encounter Details Date Type Department Care Team (Latest Contact Info) Description 12/12/2006 Outpatient Historical [facility] [address] [place] [address] AMBULANCE, [facility] Open Wound of Wrist, without Mention of Complication (Primary Dx) Social History Tobacco Use Types Packs/Day Years Used Date Smoking Tobacco: Never Assessed Comments Unknown Sex and Gender Information Value Date Recorded Sex Assigned at Not on file Legal Sex Female 5:22 AM PATIENT CARE SECRETARY Gender Identity Not on file Sexual Orientation Not on file documented as of this encounter Plan of Treatment Not on file documented as of this encounter Visit Diagnoses Diagnosis Open wound of wrist, without mention of complication- Primary documented in this encounter Additional Health Concerns Infection Onset Date Last Indicated Resolved Time 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
--- OUTSIDE RECORDS SUMMARY | 2025-02-09 23:02 | XMS_ITS | Encounter Summary ---
Author Organization [facility] Address [address] [place] [address] Care Team Providers Care Lead Blender Name Role Phone Dara Tavera Primary Care Provider [phone] Encounter Details Date Type Department Care Team (Latest Contact Info) Description 11/20/2006 Outpatient Historical [facility] [address] [place] [address] AMBULANCE, [facility] Pain in Joint, Shoulder Region (Primary Dx) Social History Tobacco Use Types Packs/Day Years Used Date Smoking Tobacco: Never Assessed Comments Unknown Sex and Gender Information Value Date Recorded Sex Assigned at Not on file Legal Sex Female 5:22 AM QUALITY ASSURANCE SUPERVISOR FINAL Gender Identity Not on file Sexual Orientation Not on file documented as of this encounter Plan of Treatment Not on file documented as of this encounter Visit Diagnoses Diagnosis Pain in joint, shoulder region- Primary documented in this encounter Additional Health Concerns Infection Onset Date Last Indicated Resolved Time 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
--- OUTSIDE RECORDS SUMMARY | 2025-02-09 23:02 | XMS_ITS | Encounter Summary ---
Author Organization [facility] Address [address] [place] [address] Care Team Providers Care Land Classifier Name Role Phone Dara Tavera AMANDEEP Primary Care Provider [phone] Encounter Details Date Type Department Care Team (Latest Contact Info) Description 07/10/2020 Ancillary Orders [facility] Centralized Scheduling [address] [place] [address] Don Loja MD [address] [place] [address] Abdominal pain, unspecified abdominal location; Change in bowel habit Social History Tobacco Use Types Packs/Day Years [...] asked 05/05/2019 How often do you attend adventist or pentecostal serv ices? Not asked 05/05/2019 Do you belong to any clubs o r organizations such as adventist groups, unions, fraternal or athletic groups, or [...] on file Legal Sex Female 5:22 AM ACCOUNTS RECEIVABLE COLLECTOR Gender Identity Not on file Sexual Orientation [...] have Coronavirus / COVID-19? No / Unsure 07/08/2020 6:45 PM ACCOUNTS RECEIVABLE COLLECTOR documented as of this encounter Plan of Treatment Not on file documented as of this encounter Visit Diagnoses Diagnosis Abdominal pain, unspecified abdominal location Change in bowel habit documented in this encounter Care Teams Land Classifier Relationship Specialty Start Date End Date Dara Tavera FNP [address] [place] [phone] PCP - General NURSE PRACTITIONER 10/13/18 documented as of this encounter
--- OUTSIDE RECORDS SUMMARY | 2025-02-09 23:02 | XMS_ITS | Encounter Summary ---
Author Organization [facility] Address [address] [place] [address] Care Team Providers Care Nurse Research Name Role Phone Dara Tavera JAVA SYBASE DEVELOPER Primary Care Provider [phone] Reason for Referral * Outpatient Services (Routine) - Closed Specialty Diagnoses / Procedures Referred By Contac t Referred To Contact Radiology Diagnoses Chest pain, unspecified chest pain type SOB (shortness of breath) on exertion Procedures ECHO STRESS W CONTRAST EXER W DOPP AND COLOR FL ECHO STRESS TEST EXERCISE W DOPP AND COLOR FLOW Jorge Taylor MD [facility] [place] [address] [place] [address] Phone: tel: fax: Referral ID Status Reason Start Date Expiration Date V isits Requested Visits Authorized [id number] Closed SGF MC TO SCHEDULE (SGF) 10/05/2015 11/04/2016 1 1 Encounter Details Date Type Department Care Team (Latest Contact Info) Description 10/05/[address] [facility] Pulmonology [facility] [address] [place] [address] Jorge Taylor MD NO ADDRESS ON FILE Chest pain, unspecified chest pain type (Primary Dx); SOB (shortness of breath) on exertion Social History Tobacco Use Types Packs/Day Years Used Date Smoking Tobacco: Every Day Cigarettes 0.3 15 Smokeless Tobacco: Never Alcohol Use Standard Drinks/Week Comments No 0 (1 standard drink = 0.6 oz pur e alcohol) Comments No Sex and Gender Information Value Date Recorded Sex Assigned at Not on file Legal Sex Female 5:22 AM VICE PRESIDENT RISK MANAGEMENT Gender Identity Not on file Sexual Orientation Not on file Occupation Industry Job Start Date Job End Date Not on file Not on file Not on file Not on file Not on file Not on file Not on file Not on file documented as of this encounter Plan of Treatment Not on file documented as of this encounter Results * ECHO STRESS W CONTRAST EXER W DOPP AND COLOR FL (10/05/2015 12:01 PM CDT) EJECTION FRACTION 55 INTERFACE SYSTEM 10/05/2015 11:1 6 AM CDT Narrative INTERFACE SYSTEM - 10/05/2015 12:22 PM CDT [facility] Echocardiography-[address] [place] [id number] Stress Echocardiography Rafy protocol Patient: Choco Study ECHO STRESS Latesha Solis ID: TEST Gender: Jaye : 1965 Age: 49 Room: Study 10/05/2015 Pt Outpatient Date: Status: Study 11:16 AM [facility] #: [id number] Time: Ordering:Jorge Taylor Interpreting:Stephen Alberts MD Inside Sales Lead: Rosario Cam [facility] Indications and History: Chest Pain, unspecified. Risk factors: Family history of coronary artery disease. Hypertension. Summary and Conclusion: - Left ventricle: The cavity size was normal. Wall thickness was normal. Systolic function was normal. The left ventricular ejection fraction was 55%. No diagnostic regional wall motion abnormality identified. - Right ventricle: The cavity size was normal. Systolic function was normal. Systolic pressure was not accurately estimated. - Stress: Maximal heart rate during stress was 140bpm (81% of maximal predicted heart rate). The maximal predicted heart rate was 173bpm.The target heart rate was not achieved. The rate-pressure product for the peak heart rate and blood pressure was 62829fd Hg/min. Functional capacity was decreased (greater than 40%). Patient reported chest pain at rest, which persisted during stress and recovery. - Stress ECG conclusions: There were no stress arrhythmias or conduction abnormalities. The stress ECG was negative for ischemia. - Staged echo: There was no echocardiographic evidence for stress-induced ischemia. Impressions: Sensitivity of this study was limited due to submaximal stress. Procedure information: Consent: The risks, benefits, and alternatives to the procedure were explained to the patient and consent was obtained. Procedure: Definity contrast used to better visualize the LV, due to suboptimal study with 2 or more roca not able to be visualized. Initial setup. A baseline ECG was recorded. Surface ECG leads were monitored. Transthoracic echocardiography. Image quality was adequate. Scanning was performed from the parasternal and apical acoustic windows. Intravenous contrast (Definity) was administered. Treadmill exercise testing was performed using the Rafy protocol. The patient exercised for 2 min 21 sec, to a maximal work rate of 4.6mets. Exercise was terminated due to achievement of target heart rate. Transthoracic stress echocardiography. Images were captured at baseline and peak exercise. Study completion: The patient tolerated the procedure well. There were no complications. Rafy protocol. Study components: M-mode, complete 2D, complete spectral Doppler, and color Doppler. Height: Height: 165.1cm. Height: 65in. Weight: Weight: 97.5kg. Weight: 214.5lb. Body mass index: BMI: 35.8kg/m\S\2. Body surface area: BSA: 2.16m\S\2. Patient status: Outpatient. Study date: Study date: October 05, 2015. Location: Stress laboratory. Cardiac Anatomy: LEFT VENTRICLE: The cavity size was normal. Wall thickness was normal. Systolic function was normal. The left ventricular ejection fraction was 55%. No diagnostic regional wall motion abnormality identified. RIGHT VENTRICLE: The cavity size was normal. Systolic function was normal. Systolic pressure was not accurately estimated. LEFT ATRIUM: The atrium was normal in size. RIGHT ATRIUM: The atrium was normal in size. AORTIC VALVE: Structurally normal valve. Doppler: There was no stenosis. No regurgitation. Peak velocity ratio of LVOT to aortic valve: 0.74. Peak gradient: 6mm Hg (S). MITRAL VALVE: Structurally normal valve. Doppler: There was no evidence for stenosis. No regurgitation. Valve area by pressure half-time: 4.31cm\S\2. Indexed valve area by pressure half-time: 2cm\S\2/m\S\2. TRICUSPID VALVE: Structurally normal valve. Doppler: There was no evidence for stenosis. No regurgitation. PULMONIC VALVE: Not well visualized. Doppler: There was no evidence for stenosis. No regurgitation. Peak gradient: 3mm Hg (S). PERICARDIUM: There was no pericardial effusion. AORTA: Aortic root: The aortic root was not dilated. Baseline ECG: Normal sinus rhythm. Stress protocol: - Baseline HR: 71bpm BP: 145/59 (88) - Peak stress HR: 140bpm BP: 110/66 (81) Stress results: Maximal heart rate during stress was 140bpm (81% of maximal predicted heart rate). The maximal predicted heart rate was 173bpm.The target heart rate was not achieved. There was a normal resting blood pressure with an appropriate response to stress. The rate-pressure product for the peak heart rate and blood pressure was 56037qn Hg/min. Functional capacity was decreased (greater than 40%). Patient reported chest pain at rest, which persisted during stress and recovery. Stress ECG: There were no stress arrhythmias or conduction abnormalities. The stress ECG was negative for ischemia. Peak stress: LV size was reduced appropriately. LV global systolic function was appropriately augmented from baseline. No evidence for new LV regional wall motion abnormalities. Stress echo results: There was no echocardiographic evidence for stress-induced ischemia. 2D measurements Adult Normal Range Left ventricle LVID ED, chord, PLAX *42.26 mm 43-52 LVID ES, chord, PLAX 29.33 mm 23-38 FS, chord, PLAX 31 % >29 LVPW, ED 8.26 mm IVS/LVPW ratio, ED 0.97 <1.3 Vol ED, MOD1 49.3 ml Vol ES, MOD1 19.7 ml EF, MOD1 59.97 % Stroke vol, MOD1 29.5 ml Vol index, ED, MOD1 23 ml/m\S\2 Vol index, ES, MOD1 9 ml/m\S\2 Stroke index, MOD1 13.7 ml/m\S\2 Vol ED, MOD2 *41.4 ml 55-101 Vol ES, MOD2 18.5 ml EF, MOD2 55.31 % Vol index, ED, MOD2 19 ml/m\S\2 Vol index, ES, MOD2 9 ml/m\S\2 Ventricular septum IVS, ED 8.02 mm Aorta Root diam, ED 28.51 mm Left atrium AP dim ES, PLAX 34.02 mm 23-38 SI dim, A4C 44.52 mm 29-53 Area ES, A4C 9.91 cm\S\2 8.8-23.4 Vol, S 16.3 ml Vol index, S 7.5 ml/m\S\2 Right atrium SI dim, ES, A4C 36.69 mm 34-49 Right ventricle RVID ED, PLAX 21.28 mm 19-38 Doppler measurements Adult Normal Range Left ventricle IVRT 97 ms 60-100 LVOT Peak cesar, S 86.36 cm/s Aortic valve Peak cesar, S 117.26 cm/s Peak gradient, S 6 mm Hg Peak cesar ratio, LVOT/AV 0.74 Mitral valve Peak E cesar 69.52 cm/s Peak A cesar 63.1 cm/s Deceleration time 176 ms 150-230 Pressure half-time 51 ms Peak E/A ratio 1.1 Area (PHT) 4.31 cm\S\2 Area index (PHT) 2 cm\S\2/m\S\2 Pulmonic valve Peak cesar, S 86.71 cm/s Peak gradient, S 3 mm Hg Legend: Mean values are shown as u=mean value. Asterisk (*) waterman values outside specified normal range. [facility] are accredited with the Intersocietal Accreditation Commission - Echocardiography. Prepared and Electronically Authenticated Stephen Alberts MD Confirmed 10/05/2015 12:22 Procedure Note Stephen Alberts MD - 10/05/2015 [facility] Echocardiography-[facility] [address] [place] [address] [place] [id number] Stress Echocardiography Rafy protocol Patient: Choco Study ECHO STRESS Latesha Solis ID: TEST Gender: F : 1965 Age: 49 Room: Study 10/05/2015 Pt Outpatient Date: Status: Study 11:16 AM CSN #: [id number] Time: Ordering:Jorge Taylor Interpreting:Stephen Alberts MD Inside Sales Lead: Rosario Cam [facility] Indications and History: Chest Pain, unspecified. Risk factors: Family history of coronary artery disease. Hypertension. Summary and Conclusion: - Left ventricle: The cavity size was normal. Wall thickness was normal. Systolic function was normal. The left ventricular ejection fraction was 55%. No diagnostic regional wall motion abnormality identified. - Right ventricle: The cavity size was normal. Systolic function was normal. Systolic pressure was not accurately estimated. - Stress: Maximal heart rate during stress was 140bpm (81% of maximal predicted heart rate). The maximal predicted heart rate was 173bpm.The target heart rate was not achieved. The rate-pressure product for the peak heart rate and blood pressure was 64415dr Hg/min. Functional capacity was decreased (greater than 40%). Patient reported chest pain at rest, which persisted during stress and recovery. - Stress ECG conclusions: There were no stress arrhythmias or conduction abnormalities. The stress ECG was negative for ischemia. - Staged echo: There was no echocardiographic evidence for stress-induced ischemia. Impressions: Sensitivity of this study was limited due to submaximal stress. Procedure information: Consent: The risks, benefits, and alternatives to the procedure were explained to the patient and consent was obtained. Procedure: Definity contrast used to better visualize the LV, due to suboptimal study with 2 or more roca not able to be visualized. Initial setup. A baseline ECG was recorded. Surface ECG leads were monitored. Transthoracic echocardiography. Image quality was adequate. Scanning was performed from the parasternal and apical acoustic windows. Intravenous contrast (Definity) was administered. Treadmill exercise testing was performed using the Rafy protocol. The patient exercised for 2 min 21 sec, to a maximal work rate of 4.6mets. Exercise was terminated due to achievement of target heart rate. Transthoracic stress echocardiography. Images were captured at baseline and peak exercise. Study completion: The patient tolerated the procedure well. There were no complications. Rafy protocol. Study components: M-mode, complete 2D, complete spectral Doppler, and color Doppler. Height: Height: 165.1cm. Height: 65in. Weight: Weight: 97.5kg. Weight: 214.5lb. Body mass index: BMI: 35.8kg/m\S\2. Body surface area: BSA: 2.16m\S\2. Patient status: Outpatient. Study date: Study date: October 05, 2015. Location: Stress laboratory. Cardiac Anatomy: LEFT VENTRICLE: The cavity size was normal. Wall thickness was normal. Systolic function was normal. The left ventricular ejection fraction was 55%. No diagnostic regional wall motion abnormality identified. RIGHT VENTRICLE: The cavity size was normal. Systolic function was normal. Systolic pressure was not accurately estimated. LEFT ATRIUM: The atrium was normal in size. RIGHT ATRIUM: The atrium was normal in size. AORTIC VALVE: Structurally normal valve. Doppler: There was no stenosis. No regurgitation. Peak velocity ratio of LVOT to aortic valve: 0.74. Peak gradient: 6mm Hg (S). MITRAL VALVE: Structurally normal valve. Doppler: There was no evidence for stenosis. No regurgitation. Valve area by pressure half-time: 4.31cm\S\2. Indexed valve area by pressure half-time: 2cm\S\2/m\S\2. TRICUSPID VALVE: Structurally normal valve. Doppler: There was no evidence for stenosis. No regurgitation. PULMONIC VALVE: Not well visualized. Doppler: There was no evidence for stenosis. No regurgitation. Peak gradient: 3mm Hg (S). PERICARDIUM: There was no pericardial effusion. AORTA: Aortic root: The aortic root was not dilated. Baseline ECG: Normal sinus rhythm. Stress protocol: - Baseline HR: 71bpm BP: 145/59 (88) - Peak stress HR: 140bpm BP: 110/66 (81) Stress results: Maximal heart rate during stress was 140bpm (81% of maximal predicted heart rate). The maximal predicted heart rate was 173bpm.The target heart rate was not achieved. There was a normal resting blood pressure with an appropriate response to stress. The rate-pressure product for the peak heart rate and blood pressure was 99031do Hg/min. Functional capacity was decreased (greater than 40%). Patient reported chest pain at rest, which persisted during stress and recovery. Stress ECG: There were no stress arrhythmias or conduction abnormalities. The stress ECG was negative for ischemia. Peak stress: LV size was reduced appropriately. LV global systolic function was appropriately augmented from baseline. No evidence for new LV regional wall motion abnormalities. Stress echo results: There was no echocardiographic evidence for stress-induced ischemia. 2D measurements Adult Normal Range Left ventricle LVID ED, chord, PLAX *42.26 mm 43-52 LVID ES, chord, PLAX 29.33 mm 23-38 FS, chord, PLAX 31 % >29 LVPW, ED 8.26 mm IVS/LVPW ratio, ED 0.97 <1.3 Vol ED, MOD1 49.3 ml Vol ES, MOD1 19.7 ml EF, MOD1 59.97 % Stroke vol, MOD1 29.5 ml Vol index, ED, MOD1 23 ml/m\S\2 Vol index, ES, MOD1 9 ml/m\S\2 Stroke index, MOD1 13.7 ml/m\S\2 Vol ED, MOD2 *41.4 ml 55-101 Vol ES, MOD2 18.5 ml EF, MOD2 55.31 % Vol index, ED, MOD2 19 ml/m\S\2 Vol index, ES, MOD2 9 ml/m\S\2 Ventricular septum IVS, ED 8.02 mm Aorta Root diam, ED 28.51 mm Left atrium AP dim ES, PLAX 34.02 mm 23-38 SI dim, A4C 44.52 mm 29-53 Area ES, A4C 9.91 cm\S\2 8.8-23.4 Vol, S 16.3 ml Vol index, S 7.5 ml/m\S\2 Right atrium SI dim, ES, A4C 36.69 mm 34-49 Right ventricle RVID ED, PLAX 21.28 mm 19-38 Doppler measurements Adult Normal Range Left ventricle IVRT 97 ms 60-100 LVOT Peak cesar, S 86.36 cm/s Aortic valve Peak cesar, S 117.26 cm/s Peak gradient, S 6 mm Hg Peak cesar ratio, LVOT/AV 0.74 Mitral valve Peak E cesar 69.52 cm/s Peak A cesar 63.1 cm/s Deceleration time 176 ms 150-230 Pressure half-time 51 ms Peak E/A ratio 1.1 Area (PHT) 4.31 cm\S\2 Area index (PHT) 2 cm\S\2/m\S\2 Pulmonic valve Peak cesar, S 86.71 cm/s Peak gradient, S 3 mm Hg Legend: Mean values are shown as u=mean value. Asterisk (*) waterman values outside specified normal range. [facility] are accredited with the Intersocietal Accreditation Commission - Echocardiography. 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
--- OUTSIDE RECORDS SUMMARY | 2025-02-09 23:02 | XMS_ITS | Encounter Summary ---
Author Organization [facility] Address [address] [place] [address] Care Team Providers Care Geomagnetician Name Role Phone Dara Tavera Primary Care Provider Encounter Details Date Type Department Care Team (Late st Contact Info) Description 05/19/2008 Outpatient Historical [facility] Ambulance [address] 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
--- OUTSIDE RECORDS SUMMARY | 2025-02-09 23:02 | XMS_ITS | Encounter Summary ---
Author Organization [facility] Address [address] [place] [address] Care Team Providers Care Award Clerk Name Role Phone Dara Tavera Primary Care Provider [phone] Encounter Details Date Type Department Care Team (Latest Contact Info) Description 11/12/2006 Outpatient Historical [facility] Ambulance [address] 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 Gender Identity Not on file Sexual Orientation Not on file documented as of this encounter Plan of Treatment Not on file documented as of this encounter Visit Diagnoses Diagnosis Pain in joint, shoulder region- Primary documented in this encounter Additional Health Concerns Infection Onset Date Last Indicated Resolved Time 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
--- OUTSIDE RECORDS SUMMARY | 2025-02-09 23:02 | XMS_ITS | Encounter Summary ---
Author Organization [facility] Address [address] [place] [address] Care Team Providers Care Box Order Person Name Role Phone Dara Tavera HAIR STYLIST Primary Care Provider [phone] Encounter Details Date Type Department Care Team (Late st Contact Info) Description 10/24/2011 Ancillary Orders [facility] [place] [address] [place] [address] Raleigh Najera MD NO ADDRESS ON FILE Injury Social History Tobacco Use Types Packs/Day Years Used Date Smoking Tobacco: Former Cigarettes 0.5 15 0 08/03/1996 - 08/03/2011 Smokeless Tobacco: Former Quit: 08/03/2011 Comments:Down to three per d ay. Plans to quit at the end of April. Alcohol Use Standard Drinks/Week Comments No 0 (1 standard drink = 0.6 oz pur e alcohol) Comments No Sex and Gender Information Value Date Recorded Sex Assigned at Not on file Legal Sex Female 5:22 AM COMPENSATION ADMINISTRATOR Gender Identity Not on file Sexual Orientation Not on file Occupation Industry Job Start Date Job End Date Not on file Not on file Not on file Not on file Not on file Not on file Not on file Not on file documented as of this encounter Plan of Treatment Not on file documented as of this encounter Results * XR PELVIS 1 OR 2 VW (10/21/2011 2:20 PM CDT) Anatomical Region Laterality Modality Pelvis Computed Radiogr aphy Impressions 10/26/2011 11:18 AM CDT no acute changes seen jaw - transcribed in [employer] 10/26/2011 11:18 AM CDT ATTENTION: This replaces accession number [id number]. DESCRIPTION: AP view of the pelvis 4May 2011 shows several VersaTac spiral staple postoperative artifacts in the left inguinal region. Pelvic soft tissues appear unremarkable. The bones of the pelvis appear intact. Procedure Note Andre Vega MD - 10/26/2011 ATTENTION: This replaces accession number [id number]. DESCRIPTION: AP view of the pelvis 4May 2011 shows several VersaTac spiral staple postoperative artifacts in the left inguinal region. Pelvic soft tissues appear unremarkable. The bones of the pelvis appear intact. IMPRESSION no acute changes seen jaw - transcribed in [facility] - us Raleigh Najera MD DIAGNOSTIC IMAGING ORDERABLE S Final Result * XR LUMBAR SPINE 2 OR 3 VW (10/21/2011 2:05 PM CDT) Anatomical Region Laterality Modality Spine Computed Radiogr aphy Impressions 10/26/2011 11:18 AM CDT 1. mild arthritic change 2. no acute changes seen jaw - transcribed in [employer] 10/26/2011 11:18 AM CDT ATTENTION: This replaces accession number [id number]. 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 The vertebral body and disc space heights appear to be otherwise maintained. No acute fracture or spondylolisthesis is seen. There is osteophyte of the anterior/superior corner of L3. There are metallic clips in the right upper quadrant of the abdomen compatible with cystectomy. Procedure Note Andre Vega MD - 10/26/2011 ATTENTION: This replaces accession number [id number]. 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 The vertebral body and disc space heights appear to be otherwise maintained. No acute fracture or spondylolisthesis is seen. There is osteophyte of the anterior/superior corner of L3. There are metallic clips in the right upper quadrant of the abdomen compatible with cystectomy. IMPRESSION 1. mild arthritic change 2. 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
--- OUTSIDE RECORDS SUMMARY | 2025-02-09 23:02 | XMS_ITS | Encounter Summary ---
Author Organization [facility] Address [address] [place] [address] Care Team Providers Care Platform Operations Director Name Role Phone Dara Tavera AMANDEEP Primary Care Provider Encounter Details Date Type Department Care Team (Late st Contact Info) Description 01/14/2007 Emergency [facility] Emergency Department [address] [place] [address] Benedicto Rojo MD NO ADDRESS ON FILE Abdominal Pain, Other Specified Site (Primary Dx) Social History Tobacco Use Types Packs/Day Years Used Date Smoking Tobacco: Never Assessed Comments Unknown Sex and Gender Information Value Date Recorded Sex Assigned at Not on file Legal Sex Female 5:22 AM SEED EXPERT Gender Identity Not on file Sexual Orientation Not on file documented as of this encounter Plan of Treatment Not on file documented as of this encounter Procedures Procedure Name Priority Date/Time Associated Diagnosis Comments BASIC METABOLIC PANEL PLUS Routine 01/14/2007 2:54 PM CDT CBC WITH DIFFERENTIAL Routine 01/14/2007 2:54 PM CDT documented in this encounter Results * (ABNORMAL) BASIC METABOLIC PANEL PLUS (01/14/2007 2:54 PM CDT) TOTAL PROTEIN 6.5 6.3 - 8.2 g/dL INTERFACE SYSTEM ALBUMIN 3.8 3.5 - 5.0 g/dL INTERFACE SYSTEM ALKALINE PHOSPHATASE 148(H) 25 - 100 U/L INTERFACE SYSTEM AST 22 8 - 33 U/L INTERFACE SYSTEM ALT 28 4 - 36 IU/L INTERFACE SYSTEM BILIRUBIN TOTAL 0.3 0.3 - 1.2 mg/dL INTERFACE SYSTEM 01/14/2007 2:54 PM CDT Benedicto Rojo MD CHEMISTRY ORDERABLES Edited Performing Organization Address [facility] de Phone Number INTERFACE SYSTEM Refer to clinic/hospital department * (ABNORMAL) CBC WITH DIFFERENTIAL (01/14/2007 2:54 PM CDT) WBC 10.9 4.5 - 11.0 K/ul INTERFACE SYSTEM RBC 4.65 4.20 - 5.40 Mil/ul INTERFACE SYSTEM HEMOGLOBIN 13.8 12.0 - 16.0 g/dL INTERFACE SYSTEM HEMATOCRIT 40.3 36.0 - 46.0 % INTERFACE SYSTEM MCV 86.7 84.0 - 103.0 Fl INTERFACE SYSTEM MCH 29.7 27.0 - 34.0 pg INTERFACE SYSTEM MCHC 34.2 30.0 - 35.0 g/dL INTERFACE SYSTEM RDW 12.9 11.0 - 14.5 % INTERFACE SYSTEM PLATELETS 181 140 - 440 K/ul INTERFACE SYSTEM MPV 10.5 8.9 - 12.8 Fl INTERFACE SYSTEM NEUTROPHILS 62.8 42.2 - 75.2 % INTERFACE SYSTEM LYMPHOCYTES 27.3 24.0 - 44.0 % INTERFACE SYSTEM MONOCYTES 6.3 2.0 - 10.0 % INTERFACE SYSTEM EOSINOPHILS 3.1 0.0 - 7.0 % INTERFACE SYSTEM BASOPHILS 0.5 0.0 - 1.0 % INTERFACE SYSTEM NEUTROPHIL ABSOLUTE 6.8 2.0 - 8.0 K/ul INTERFACE SYSTEM LYMPHOCYTE ABSOLUTE 3.0 1.2 - 4.0 K/ul INTERFACE SYSTEM MONOCYTE ABSOLUTE 0.7(H) 0.1 - 0.6 K/ul INTERFACE SYSTEM EOSINOPHIL ABSOLUTE 0.3 0.0 - 0.7 K/ul INTERFACE SYSTEM BASOPHILS ABSOLUTE 0.1 0.0 - 0.2 K/ul INTERFACE SYSTEM 01/14/2007 2:54 PM CDT Benedicto Rojo MD HEMATOLOGY ORDERABLES Edited Performing Organization Address [facility] Co de Phone Number INTERFACE SYSTEM Refer to clinic/hospital department documented in this encounter Visit Diagnoses Diagnosis Abdominal pain, other specified site- Primary documented in this encounter Additional Health Concerns Infection Onset Date Last Indicated 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
[2025-02-09] MEDS: HYDROmorphone 0.5 MG/0.5 ML INJ IVP (23:18)
[2025-02-09 23:19] LABS: Hematocrit 36.7 % (36-47); Hemoglobin 12.50 g/dL (11.27-16.99); Mean Corpuscular HGB Conc 34.1 g/dL (30-55); Mean Corpuscular Hemoglobin 33.0 pg (27-33); Mean Corpuscular Volume 96.8 fl (85-98); Nucleated Red Blood Cells % 0 %; Platelet Count 181 10^3/cmm (157-399); Red Blood Count 3.79 10^6/uL (3.85-5.65); White Blood Count 16.64 10^3/uL (3.29-11.43)
[2025-02-09 23:38] LABS: Alanine Aminotransferase 8 U/L (0-33); Albumin Level 3.8 g/dL (3.5-5.2); Alkaline Phosphatase 110 U/L (35-105); Anion Gap 16.0 (5-19); Aspartate Amino Transferase 12 U/L (0-32); Blood Urea Nitrogen 20 mg/dL (6-20); Calcium 9.2 mg/dL (8.5-10.5); Carbon Dioxide 21 mmol/L (22-29); Chloride 100 mmol/L (98-107); Globulin 2.5 g/dL (1.3-4.6); Glucose 104 mg/dL (65-115); Osmolality Calculated 279 mOsm/kg (285-295); Potassium 4.0 mmol/L (3.5-5.1); Sodium 133 mmol/L (136-145); Total Protein 6.3 g/dL (6.6-8.7)
[2025-02-09 23:48] LABS: Creatinine Clr Calc Pharmacy 236.2163
--- NOTE | 2025-02-09 23:53 | ED_ITS ---
HPI - Neck Pain/Injury 2 General: Chief Complaint: Neck Pain/Injury Stated Complaint: NECK PAIN Source: patient and EMS Mode of arrival: EMS Limitations: no limitations History of Present Illness: Patient is a 59-year-old female well-known to the emergency department here presenting by ambulance for reports of neck pain and nausea and vomiting. Per EMS, the patient was seen at [facility] earlier this morning for the same issue, was given Toradol and Norflex for her neck pain and ultimately encouraged to follow-up with her primary care provider. Patient states that she is not supposed to be taking NSAIDs due to her chronic stomach issues, and that the Toradol has made her abdominal pain flareup quite a bit today. States she still having neck pain, is set to see her primary care on Monday to undergo further testing for this and likely referred to surgery. She has a history of degenerative disc disease in her back as well. Patient was given 4 mg of Zofran prehospital, is reporting general diffuse abdominal pain. She has extensive past medical history including chronic gastritis, tobacco use disorder and substance abuse disorder, GERD, psychiatric history, and has chronic leukocytosis. Her vitals are stable at this time, she is nontoxic-appearing. With her neck pain she does not report any trauma or fevers. MD complaint: neck pain Onset (ago): day(s) Associated symptoms: Reports nausea; Denies headache(s) Related Data Home Medications ?Medication ?Instructions ?Recorded ?Confirmed acetaminophen 500 mg tablet 1,000 mg PO Q6H PRN Pain 0 07/09/21 02/04/25 pantoprazole 40 mg tablet,delayed 40 mg PO BID 4 02/04/25 release ondansetron HCl 4 mg tablet 4 mg PO Q8H 01/22/2402/04 prednisolone acetate 1 % eye drp ophthalmic (eye) 04/2012/31/24 drops,suspension dicyclomine 10 mg capsule 10 mg PO BID PRN 05/27/24 polyethylene glycol 3350 17 4 g PO DAILY 05/27/2401/17 gram/dose oral powder (Miralax) sucralfate 1 gram tablet (Carafate) 1 g PO QID 4 02/04/25 famotidine 20 mg tablet mg PO 09/23/24 02/04/25 lubiprostone 24 mcg capsule mcg PO 09/23/24 02/04/25 Previous Rx's ?Medication ?Instructions ?Recorded nystatin 100,000 unit/gram topical 1 applic topical BI D #30 grams 06/16/22 powder SOLE Supports #1 ea 01/01/24 fluticasone propionate 50 1 spray intranasal DAILY PRN nasal 05/10/24 mcg/actuation nasal congestion 30 days #16 grams spray,suspension (Flonase Allergy Relief) Rollator Walker #1 ea 09/06/24 promethazine 25 mg tablet 12.5 - 25 mg (0.5 - 1 x 25 m g) PO 10/05/24 Q6H PRN nausea and vomiting #10 tabs albuterol sulfate 90 mcg/actuation See Rx Instructions .Route 11/22/24 aerosol inhaler .COMPLEX #9 grams tizanidine 4 mg tablet 4 mg PO BID PRN muscle spast icity 12/12/24 30 days #60 tabs cholecalciferol (vitamin D3) 1,250 1,250 mcg PO .once a week 90 days 12/16/24 mcg (50,000 unit) capsule #12 caps quetiapine 25 mg tablet 25 mg PO BID PRN agitation # 60 tabs 12/31/24 lamotrigine 200 mg tablet 200 mg PO DAILY@06 #30 tabs 02/04/25 quetiapine 25 mg tablet See Rx Instructions PO .COMP MADISON 02/04/25 #90 tabs trazodone 300 mg tablet 300 mg PO .q hs PRN sleep #3 0 tabs 02/04/25 vortioxetine 20 mg tablet 20 mg PO .q am #30 tabs 01/17 03/13 (Trintellix) vortioxetine 5 mg tablet 5 mg PO DAILY #30 tabs 02/04 Allergies Allergy/AdvReac Type Severity Reaction Status Date / Time haloperidol (From Haldol) Allergy Severe unknown Verified 02/04/25 08:08 Penicillins Allergy Severe ALGY-Anaphy Verified 02/04/25 08:08 laxis sulfamethoxazole (From Allergy Severe ALGY-Hives Verified 02/04/25 08:08 Bactrim) Tetracyclines Allergy Severe ALGY-Hives Verified 02/04/25 08:08 gabapentin (From Neurontin) Allergy Intermediate ADR-Halluci Verified 02/04/25 08:08 nating ketorolac (From Toradol) Allergy Intermediate ALGY-Rash Verified 02/04/25 08:08 lithium Allergy Intermediate ADR-Halluci Verified 02/04/25 08:08 nating fentanyl Allergy Mild rash Verified 02/04/25 08:08 adhesive tape Allergy Rash Verified 02/04/25 08:08 codeine Allergy GI Verified 02/04/25 08:08 duloxetine (From Cymbalta) Allergy ALGY-Rash Verified 02/04/25 08:08 fluoxetine Allergy ADR-Migrain Verified 02/04/25 08:08 e metoclopramide (From Reglan) Allergy ADR-Shakine Verified 02/04/25 08:08 ss nitroglycerin Allergy ADV-Weaknes Verified 02/04/25 08:08 s tramadol Allergy Unknown Verified 02/04/25 08:08 trimethoprim (From Bactrim) Allergy ALGY-Hives Verified 02/04/25 08:08 ziprasidone (From Geodon) AdvReac Severe ADR-Halluci Verified 02/04/25 08:08 nating risperidone (From Risperdal) AdvReac ADR-Halluci Verified 02/04/25 08:08 nating Review of Systems 2 General: Reports: 10 or more systems reviewed and unremarkable except in HPI and below Const: Denies: fever(s) or chills Card: Denies: chest pain Resp: Denies: dyspnea or productive cough GI: Reports: abdominal pain, nausea and vomiting; Denies: diarrhea : Denies: flank pain Musc: Reports: neck pain; Denies: back pain, extremity pain, extremity swelling, joint pain, joint swelling, joint redness, joint warmth, limited range of motion or muscle weakness Skin/Breast: Denies: rash Neuro: Denies: headache(s), numbness in extremities or weakness in extremities PFSH ED 2 PFSH: Medical History Chronic gastritis without bleeding Insomnia Tobacco use disorder Opioid dependence, uncomplicated Cannabis dependence, uncomplicated Psychiatric care Tardive dyskinesia Esophageal stricture Cystitis cystica Restrictive lung disease Chronic back pain greater than 3 months duration Borderline personality disorder Schizoaffective disorder, bipolar type Urgency incontinence Neurogenic bladder Dysphagia COPD (chronic obstructive pulmonary disease) GERD without esophagitis Foreign body in bladder Bladder stone Chronic anxiety Surgical History H/O bladder repair surgery MESH REPAIR H/O esophagogastroduodenoscopy (09/21/20) H/O colonoscopy with polypectomy History of foot surgery sx in 2009. Screws placed by Dr. Don. S/P bronchoscopy with biopsy History of ureter stent History of breast biopsy Hx of cholecystectomy H/O: hysterectomy History of appendectomy Family History Mother No problems noted. Father No problems noted. Other Asthma Cancer Diabetes Heart disease Social History Smoking and tobacco/nicotine status: never used tobacco/nicotine Quit status (tobacco/nicotine): considering quitting Second hand smoke exposure: Yes Alcohol intake: never Substance/Drug Use: former Lives independently: Yes Household members: spouse Marital status: Number of children: 3 Current occupational status: disabled Do you think of yourself as: Straight/Heterosexual Current gender identity: Female Physical Exam 2 Const: COMMON NORMALS: no acute distress, patient oriented x3, alert and well nourished GENERAL APPEARANCE: cooperative and appears older than stated age ORIENTATION/CONSCIOUSNESS: Yes awake HENMT: COMMON NORMALS: normocephalic and atraumatic HEAD & SCALP: n ormocephalic and atraumatic Eye: COMMON NORMALS: Equal, round and reactive pupils present, EOMs intact bilaterally, conjunctivae normal and normal visual cortes by confrontation C ONJUNCTIVA: Yes conjunctivae normal PUPIL: Yes Equal, round and reactive pupils present Neck/C-Spine: COMMON NORMALS: full ROM, supple and no meningeal signs O THER: She is endorsing diffuse tenderness to palpation to the posterior neck with no signs of trauma or deformity. Full range of motion. No meningeal signs. Resp: COMMON NORMALS: normal respiratory effort, No retractions, No use of accessory muscles and clear to auscultation bilaterally AUSCULTATION: clear to auscultation bilaterally, no crackles, no rales, no rhonchi and no wheezes Cardio: COMMON NORMALS: regular rate, regular rhythm, S1 normal heart sound present, S2 normal heart sound present, No gallops present (Cardio), No clicks present (Cardio), No murmurs present (Cardio), No rub (Cardio) and Peripheral pulses 2+ throughout RATE: regular rate RHYTHM: regular rhythm HEART SOUNDS: S1 normal heart sound present and S2 normal heart sound present P ERIPHERAL PULSES: Peripheral pulses 2+ throughout GI: COMMON NORMALS: Normal to inspection, nondistended, normoactive bowel sounds present, Soft to palpation, No hepatosplenomegaly present and no masses AUSCULTATION: Yes normoactive bowel sounds PALPATION: Yes Soft to palpation, No Rigid due to palpation and Yes No hepatosplenomegaly present RECTAL EXAM: deferred OTHER: Voluntary guarding, and diffuse tenderness to very light palpation of the abdomen. : COMMON NORMALS: Yes no CVA tenderness BLADDER/KIDNEY EXAM: Yes no CVA tenderness Back/Pelvis: COMMON NORMALS: no CVA tenderness Extremity: COMMON NORMALS: normal to inspection and full ROM Neuro: COMMON NORMALS: patient oriented x3, moves all extremities, no focal motor deficits and no sensory deficits noted SENSORIUM/ORIENTATION: Yes alert MENINGEAL SIGNS: Yes no meningeal signs Psych: COMMON NORMALS: mental status grossly normal, cooperative and speech normal SPEECH: Yes normal speech Skin: COMMON NORMALS: no rashes or lesions noted GENERAL SKIN EXAM: no rashes or lesions noted Course 2 Vital Signs: Vital signs: Vital Signs Temperature 97.2 F L 02/09/25 22:36 Pulse Rate 61 02/10/25 00:21 Respiratory Rate 17 02/09/25 22:36 Blood Pressure 112/75 02/10/25 00:21 Pulse Oximetry 92 02/10/25 00:21 Oxygen Delivery Me thod Room Air 02/09/25 22:36 MDM - Neck Pain/Injury Medical Decision Making Patient well-known to the emergency department here presenting for neck pain and nausea and vomiting. Was seen at an ER in [place] earlier this morning for the same issue, received Toradol and Norflex but states that the Toradol exacerbated her gastritis and this is a new complaint of hers along with her chronic neck pain. She is set to see primary care on Monday for further imaging of her neck and likely referral to Ortho/spine, and on exam there is no significant step-off deformity, meningismus, or other acute features. She has chronic gastritis, and chronic leukocytosis which is evident on CBC today. Otherwise rest of her labs are unremarkable. She had stated that the only thing that works for her pain is Dilaudid, this was given and she notes near complete resolution of her symptoms. Also was given fluids and she had received Zofran for nausea prehospital. Stating she was ready to go home, she is encouraged to keep her follow-up on Monday and is discharged at this time. Lab Data 02/09/25 23:13 02/09/25 23:13 Laboratory Results WBC 16.64 10^3/uL (3.29-11.43) H 02/09/25 23:13 RBC 3.79 10^6/uL (3.85-5.65) L 02/09/25 23:13 Hgb 12.50 g/dL (11.27-16.99) 02/09/25 23:13 Hct 36.7 % (36-47) 02/09/25 23:13 MCV 96.8 fl (85-98) 02/09/25 23:13 MCH 33.0 pg (27-33) 02/09/25 23:13 MCHC 34.1 g/dL (30-55) 02/09/25 23:13 RDW 13.2 % (12.1-15.1) 02/09/25 23:13 Plt Count 181 10^3/cmm (157-399) 02/09/25 23:13 MPV 9.4 fL (7.4-10.4) 02/09/25 23:13 Neut % (Auto) 77.5 % 02/09/25 23:13 Lymph % (Auto) 14.8 % 02/09/25 23:13 [place] % (Auto) 5.4 % 02/09/25 23:13 Eos % (Auto) 1.5 % 02/09/25 23:13 Baso % (Auto) 0.5 % 02/09/25 23:13 Neut # (Auto) 12.89 10^3/uL (1.8-7.7) H 02/09/25 23:13 Lymph # (Auto) 2.5 10^3/uL (0.8-4.8) 02/09/25 23:13 [place] # (Auto) 0.9 10^3/uL (0.2-0.9) 02/09/25 23:13 Eos # (Auto) 0.3 10^3/uL (0.0-0.8) 02/09/25 23:13 Baso # (Auto) 0.1 10^3/uL (0.0-0.1) 02/09/25 23:13 Nucleated RBC % (auto) 0 % 02/09/25 23:13 Nucleated RBCs # 0.0 /100WBC 02/09/25 23:13 Sodium 133 mmol/L (136-145) L 02/09/25 23:13 Potassium 4.0 mmol/L (3.5-5.1) 02/09/25 23:13 Chloride 100 mmol/L (98-107) 02/09/25 23:13 Carbon Dioxide 21 mmol/L (22-29) L 02/09/25 23:13 Anion Gap 16.0 (5-19) 02/09/25 23:13 BUN 20 mg/dL (6-20) 02/09/25 23:13 Creatinine 1.0 mg/dL (0.5-0.9) H 02/09/25 23:13 GFR Calculation 57.1 mL/min (90-130) L 02/09/25 23:13 Glucose 104 mg/dL (65-115) 02/09/25 23:13 Calculated Osmolality 279 mOsm/kg (285-295) L 02/09/25 23:13 Calcium 9.2 mg/dL (8.5-10.5) 02/09/25 23:13 Total Bilirubin 0.2 mg/dL (0.15-1.2) 02/09/25 23:13 AST 12 U/L (0-32) 02/09/25 23:13 ALT 8 U/L (0-33) 02/09/25 23:13 Alkaline Phosphatase 110 U/L (35-105) H 02/09/25 23:13 Total Protein 6.3 g/dL (6.6-8.7) L 02/09/25 23:13 Albumin 3.8 g/dL (3.5-5.2) 02/09/25 23:13 Globulin 2.5 g/dL (1.3-4.6) 02/09/25 23:13 No radiology studies performed this visit Discharge Plan Discharge Patient Disposition: Home Clinical Impression: Cervicalgia Chronic gastritis without bleeding Qualifiers: Gastritis type: unspecified gastritis Qualified Code(s): K29.50 - Unspecified chronic gastritis without bleeding Condition: Stable Prescriptions: No Action pantoprazole 40 mg tablet,delayed release (DR/EC) 40 mg PO BID (DME) SOLE Supports See Rx Instructions .Route .MEDSUPPLY Qty: 1 0RF Rx Instructions: As directed PRE-Auth prednisolone acetate 1 % drops,suspension ophthalmic (eye) fluticasone propionate [Flonase Allergy Relief] 50 mcg/actuation spray,suspension 1 spray intranasal DAILY PRN (Reason: nasal congestion) 30 Days Qty: 16 2RF Rx Instructions: administer into each nostril dicyclomine 10 mg capsule 10 mg PO BID PRN famotidine 20 mg tablet PO lubiprostone 24 mcg capsule PO tizanidine 4 mg tablet 4 mg PO BID PRN (Reason: muscle spasticity) 30 Days Qty: 60 0RF quetiapine 25 mg tablet 25 mg PO BID PRN (Reason: agitation) Qty: 60 2RF Rx Instructions: Take one tablet up to twice a day, if needed, for agitation quetiapine 25 mg tablet See Rx Instructions PO .COMPLEX Qty: 90 1RF Rx Instructions: Take one tablet every morning and two tablets at bedtime; stop other doses vortioxetine 5 mg tablet 5 mg PO DAILY Qty: 30 1RF Rx Instructions: Take one tablet daily with the 20 mg dose Trintellix 20 mg tablet 20 mg PO .q am Qty: 30 1RF Rx Instructions: Take one tablet once daily trazodone 300 mg tablet 300 mg PO .q hs PRN (Reason: sleep) Qty: 30 1RF Rx Instructions: Take one tablet daily at bedtime, if needed for sleep lamotrigine 200 mg tablet 200 mg PO DAILY@06 Qty: 30 1RF Rx Instructions: Take one tablet by mouth every morning ondansetron HCl 4 mg tablet 4 mg PO Q8H sucralfate [Carafate] 1 gram tablet 1 g PO QID polyethylene glycol 3350 [Miralax] 17 gram/dose powder 4 g PO DAILY nystatin 100,000 unit/gram powder 1 applic topical BID Qty: 30 0RF Rx Instructions: apply locally to B/L groin folds (DME) Rollator Walker See Rx Instructions .Route .MEDSUPPLY Qty: 1 0RF Rx Instructions: As directed HOME: Length of need 4 months albuterol sulfate 90 mcg/actuation HFA aerosol inhaler See Rx Instructions .ROUTE .COMPLEX Qty: 9 0RF Dose Instruction: INHALE 2 PUFFS BY MOUTH EVERY 6 HOURS NEEDED FOR SHORTNESS OF BREATH OR WHEEZING Rx Instructions: INHALE 2 PUFFS BY MOUTH EVERY 6 HOURS NEEDED FOR SHORTNESS OF BREATH OR WHEEZING cholecalciferol (vitamin D3) 1,250 mcg (50,000 unit) capsule 1,250 mcg PO .once a week 90 Days Qty: 12 0RF acetaminophen 500 mg Tablet 1,000 mg PO Q6H PRN (Reason: Pain) promethazine 25 mg tablet 12.5 - 25 mg PO Q6H PRN (Reason: nausea and vomiting) Qty: 10 0RF Rx Instructions: 4 doses during day; last dose no later than 4 hr before bedtime Discharge Orders: Discharge ED (Routine); Ordered 02/10/25 Ordered By: Edgar Brown Referrals: Dara Tavera FNP [Primary Care Provider, Family Practice] Patient Instructions: Patient Portal & [facility] Instructions Activity Restrictions/Additional Instructions: Follow-up on Monday with your regular provider as you already have planned. Please continue taking your home medications. Please return with any new or worsening. Print Language: Northern Irish Coding Level of Care Code ED [employer] Internship for Shellie Guallpa
[2025-02-10] VITALS: BP 105/69; PULSE 70; O2SAT 93
[2025-02-10 00:21] VITALS: BP 112/75; PULSE 61; O2SAT 92
== END 2025-02-10 00:14 | disposition home or self-care (01) ==
PROVIDERS: Emergency Provider Physician Assistant; PCP Registered Nurse
DX: M54.2 Cervicalgia (principal); K29.50 Unspecified chronic gastritis without bleeding; J44.9 Chronic obstructive pulmonary disease, unspecified
CPT/HCPCS: 80053; 85025; 96374; 96375; 99284; J0780; J1171; J7040

== ENCOUNTER → 2025-02-25 09:12 | Outpatient (BNVA) | payer OTHER, MEDICAID, SELFPAY | PROVIDERS: PCP Registered Nurse; Referring Provider Registered Nurse; Visit Provider Nurse Practitioner Family | DX: M54.2 Cervicalgia (principal) | CPT/HCPCS: 99214 ==

== ENCOUNTER 2025-03-02 22:23 | Emergency (ER) | payer OTHER, MEDICAID, SELFPAY ==
--- OUTSIDE RECORDS SUMMARY | 2010-09-24 03:47 | XMS_ITS | Continuity of Care Document ---
Author Organization [facility] Address [address] [id number] [address] Phone Care Team Providers Care Professor Of Floriculture Name Role Phone Nathaniel Toussaint DDS, MD Unavailable Unavailab le Medications Medication Instructions Dosage Effective Dates (start - stop) Status Comments hydrocodone-acetami nophen 7.5 mg-325 mg Tab take 1 tablet by oral route every 6 hours as needed for pain 1.00 tablet - Active Procedures Procedure Date Post Op No Charge Extraction, Erupted Tooth Or Exposed Aleida t ( Extraction, Erupted Tooth Or Exposed Aleida t ( Extraction, Erupted Tooth Or Exposed Aleida t ( Extraction, Erupted Tooth Or Exposed Aleida t ( Extraction, Erupted Tooth Or Exposed Aleida t ( Extraction, Erupted Tooth Or Exposed Aleida t ( Extraction, Erupted Tooth Or Exposed Aleida t ( Extraction, Erupted Tooth Or Exposed Aleida t ( Extraction, Erupted Tooth Or Exposed Aleida t ( Extraction, Erupted Tooth Or Exposed Aelida t ( Extraction, Erupted Tooth Or Exposed Aleida t ( Extraction, Erupted Tooth Or Exposed Aleida t ( Extraction, Erupted Tooth Or Exposed Aleida t ( Extraction, Erupted Tooth Or Exposed Aleida t ( Removal Of Impacted Tooth Completely Bony Removal Of Impacted Tooth Completely Bony Removal Of Impacted Tooth Completely Bony Extraction, Erupted Tooth Or Exposed Aleida t (Elevati Limited Oral Evaluation Problem Focused Advance Directives Directive Yes / No Effective Date File Name Resuscitation Not Answered N/A N/A Life Support Not Answered N/A N/A Intubation Not Answered N/A N/A Antibiotics Not Answered N/A N/A IV Fluid Support Not Answered N/A N/A Tube Feed Not Answered N/A N/A Other Directive N/A N/A WARNING:The information contained in this section is historical and is provided for information only and does not constitute a legal document or any assurance that the information is still accurate. Please verify the information with the humphries of the legal document before using it for clinical purposes. Encounters Encounter Description Practice Location Reason(s) For Visit Diagnoses Date Provider Providers Copied on Encounter [facility], [id number][place], [address], [place] tel:[phone] Family Medicine F1 No Information Breana Armstrong. [address] [place] [place], [address], [place]. tel:[phone] [facility], [id number] 431945SX[place], [address], [place] tel:[phone] [facility] Dental examination Breana Armstrong. [address], [place], [address], [place]. tel:[phone] Referring Provider: Nathaniel Soto, [address] [place], [address]. tel:[phone] [facility], [id number] 752776YZ[place], [address], [place] tel:[phone] [facility] Dental examination Breana Armstrong. [address] [place], [address], [place]. tel:[phone] Referring Provider: Nathaniel Soto, [address] [place], [address]. tel:[phone] [facility], [id number]-Hf [facility], [place], [place], [address], tel:[phone] [facility] Dental examination Breana Armstrong. [address], [place], [address], [place]. tel:[phone] Referring Provider: [place], [address]. tel:[phone] Family History Family Member Type Diagnosis Age At Onset Father Problem (finding) alcoholism Grandparents Problem (finding) depression Father Problem (finding) hypertension Brother Problem (finding) alcoholism Father Problem (finding) asthma Payers Payer name Insurance type Covered republican ID rob kitred(s) D Medicaid [id number] Social History Type Description Quantity Date Captured Comments Alcohol Use Details No Caffeine Use Details No Tobacco Use Status Smoking Status No Information Sex Female Chief Complaint And Reason For Visit No Information Reason For Referral Reason For Referral No Information Plan Of Treatment Date Type Action Status Goal H&P. 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 Due on due Goal TD Vaccine. Due on 11 due Goal Breast exam. Due on 011 due Goal PAP. Due on due Goal Foot Exam. Due on 1 due History Of Present Illness Encounter Date Complaint History Of Prese nt Illness No Information Functional Status Date Functional Assessmen t No Information Instructions Date Instruction Additional Infor mation No Information Assessments Type Assessment Date No Information Patient Care Teams Name Effective Dates (start - stop) Status Members No Information
--- OUTSIDE RECORDS SUMMARY | 2025-03-02 22:32 | XMS_ITS | Clinical Summary ---
Author Organization [facility] Address [address] [place] [address] Care Team Providers Care Order Entry Representative Name Role Phone Sally Dong MD Primary Care Provider Allergies Active Allergy Reactions Criticality Noted Date Comments Adhesive Rash Low 02/12/2009 Codeine Nausea and Vomiting Low 02/12/2009 Duloxetine Other (See Comments) 02/24/2015 Fentanyl Hives High 11/07/2019 Fluoxetine Unknown 10/20/2018 Gabapentin Unknown,Hallucination Low 02/12/2009 Haloperidol Unknown 01/04/2022 Tardive dyskinesia Ketorolac Tromethamine Other (See Comments) Low Adverse drug reaction [place] Unknown 02/12/2009 Other reaction(s): shakey Metoclopramide Hcl [...] for Nausea/Emesis. Active naloxone (NARCAN) 4 mg/spray [place], Non-Aerosol EMERGENCY USE ONLY: Administer 1 spray [...] times daily. 20 Tablet 02/10/20 25 Active tiZANidine (ZANAFLEX) 2 mg Tablet Take 1 Tablet (2 mg) by mouth every 6 hours as needed for Spasm. 30 Tablet 02/21/20 25 Active Active Problems Problem Noted Date [...] Hematochezia 07/07/2009 10/26/2012 Personal history of MRSA (nd thicillin resistant Staphylococcus aureus) 06/27/2009 018 Overview (10/14/2020): Under the arm abscess ~ 2014 Fever and chills 02/12/2009 10/26/2012 Hypoxemia 02/12/2009 04/06/2014 Encounters Date Type Department Care Team Description 02/20/2025 8:40 PM CDT - 02/20/2025 10:04 PM CDT Emergency [facility] Emergency Medicine [address] BEDS AT [facility] [address] [place] [address] Tommy Matthews MD Chronic neck pain (Primary Dx) Discharge Disposition: Home or Self Care 02/20/2025 Travel 02/15/2025 4:28 PM CDT - 02/15/2025 5:10 PM CDT Emergency [facility] Emergency Medicine [address] INCLUDE 234 BEDS AT THE [facility] [address] [place] [address] Neck muscle spasm (Primary Dx) Discharge Disposition: Home or Self Care 02/11/2025 10:49 AM CDT - 02/11/2025 11:59 PM CDT Hospital Encounter [facility] [address] [place] [address] Dara Tavera FNP Discharge Disposition: Home or Self Care 02/11/2025 Orders Only [facility] Admitting [address] COUNT[address] INCLUDE 234 BEDS AT THE [facility] [address] [place] [address] AyseDara, AMANDEEP Cervicalgia (Primary Dx) 02/09/2025 9:24 AM CDT - 02/09/2025 10:00 AM CDT Emergency [facility] Emergency Medicine [address] COUNT[address] INCLUDE 234 BEDS AT THE [facility] [address] [place] [phone] Tommy Matthews MD Cervicalgia (Primary Dx) Discharge Disposition: Home or Self Care 02/09/2025 - 02/09/2025 11:59 PM CDT Hospital Encounter [facility] [address] [place] [phone] Ambulance, [facility] [place] [facility] Discharge Disposition: [facility] 02/09/2025 Travel 02/01/2025 5:38 PM CDT - 02/01/2025 7:27 PM CDT Emergency [facility] Emergency Medicine [address] [place] [phone] Tommy Matthews MD Abdominal pain, unspecified abdominal location (Primary Dx); Chest pain, unspecified type Discharge Disposition: Home or Self Care 02/01/2025 - 02/01/2025 11:59 PM CDT Hospital Encounter [facility] [address] [place] [address] Ambulance, [facility] [place] [facility] Discharge Disposition: [facility] 02/01/2025 Travel 01/19/2025 6:21 PM CDT - 01/19/2025 7:53 PM CDT Emergency [facility] Emergency Medicine [address] [place] [phone] Sanju Biggs DO Sindlinger, Timothy S, MD Flank pain (Primary Dx); Chronic pain syndrome Discharge Disposition: Home or Self Care 01/14/2025 3:31 PM CDT - 01/14/2025 6:45 PM CDT Emergency [facility] Emergency Medicine [address] [place] [phone] Corinna Sarabia MD Constipation due to slow transit (Primary Dx); Excessive flatus Discharge Disposition: Home or Self Care 01/14/2025 Travel 01/05/2025 6:10 AM CDT - 01/05/2025 11:59 PM CDT Hospital Encounter [facility] [address] [facility] [address] [place] [address] Ambulance, [facility] Discharge Disposition: [facility] 01/02/2025 7:39 PM CDT - 01/02/2025 7:55 PM CDT [facility] [address] [place] [phone] Discharge Disposition: Left without being seen 12/27/2024 4:43 PM CDT - 12/27/2024 6:58 PM CDT [facility] [address] [place] [phone] Johnathan Andres DO Acute right-sided low back pain with right-sided sciatica (Primary Dx) Discharge Disposition: Home or Self Care 12/19/2024 5:02 PM CDT - 12/19/2024 9:04 PM CDT [facility] [address] [place] [address] Sanju Biggs DO Sindlinger, Timothy S, MD Chronic abdominal pain (Primary Dx); Chronic diarrhea Discharge Disposition: Home or Self Care 12/19/2024 5:48 AM CDT - 12/19/2024 11:59 PM CDT Hospital Encounter [facility] [address] [place] [phone] Ambulance, [facility] Discharge Disposition: [facility] 12/17/2024 External Device Data STL ABSTRACTION Provider, Abstract 12/12/2024 6:58 PM CDT - 12/12/2024 7:58 PM CDT [facility] [address]CLUDE [address] BEDS AT [facility] [address] [place] [phone] Sea Leon MD Generalized abdominal pain (Primary Dx) Discharge Disposition: Home or Self Care 12/11/2024 6:40 PM CDT - 12/11/2024 7:23 PM CDT Emergency [facility] Emergency Medicine [address] INCLUDE 234 BEDS AT THE [facility] [address] [place] [address] Tommy Matthews MD Sciatica of right side (Primary Dx) Discharge Disposition: Home or Self Care 12/06/2024 7:06 PM CDT - 12/06/2024 7:56 PM CDT Emergency [facility] Emergency Medicine [address] INCLUDE 234 BEDS AT [facility] [address] [place] [address] Mohinder Dumont DO Chronic right-sided back pain, unspecified back location (Primary Dx) Discharge Disposition: Home or Self Care 12/06/2024 Travel 12/04/2024 8:36 PM CDT - 12/04/2024 10:43 PM CDT formerly [facility] Emergency Medicine [address] [place] [phone] Mohinder Dumont DO Contusion of right hip, initial encounter (Primary Dx) Discharge Disposition: Home or Self Care 12/04/2024 Travel 12/03/2024 Orders Only [facility] Admitting [address] COUNTS INCLUDE 234 BEDS AT [facility] [address] [place] [address] Dara Tavera, TALENT ACQUISITION PROJECT MANAGER Low back pain with bilateral sciatica, unspecified back pain laterality, unspecified chronicity (Primary Dx) 11/30/2024 9:21 PM CDT - 11/30/2024 11:07 PM CDT Emergency [facility] Emergency Medicine [address]CLUDE [address] BEDS AT [facility] [address] [place] [address] Sea Leon MD Generalized abdominal pain (Primary Dx) Discharge Disposition: Home or Self Care 11/30/2024 Travel from Last 3 Months Immunizations Immunization [...] asked 05/05/2019 How often do you attend restoration or mormon serv ices? Not asked 05/05/2019 Do you belong to any clubs o r organizations such as restoration groups, unions, fraternal or athletic groups, or [...] who hurts you emotionally and/or physically? 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.] Name Priority Date/Time Associated Diagnosis Comments XR CERVICAL SPINE 2 OR 3 VIEWS Routine 02/11/2025 11:00 AM CDT Cervicalgia XR CHEST PA OR AP 1 VW [...] 3 VIEWS RT Stat 9:53 PM CDT HEMOGLOBIN A1C Routine 06/17/2018 7:12 AM STITCH BONDING MACHINE DRAWER IN from Last 3 Months or Most Recently Relevant to Health Maintenance Results * XR CERVICAL SPINE 2 OR 3 VIEWS (02/11/2025 11:00 AM CDT) Anatomical Region Laterality Modality Spine Computed Radiogr aphy 02/11/2025 11:0 0 AM CDT Impressions 02/11/2025 11:07 AM CDT IMPRESSION: Please see below. Exam: XR CERVICAL SPINE 2 OR 3 VIEWS Date/Time of Exam: 02/11/2025 11:00 AM Reason For Exam: See Diagnosis. Diagnosis: Cervicalgia. Comparison: None. Findings: Five views of the cervical spine demonstrate reversal of the normal cervical lordosis secondary to spasm and/or positioning. Moderate degenerative disc space narrowing C5-6, C6-7, and C7-T1. Multilevel facet degenerative change. Prevertebral soft tissues and posterior elements otherwise are unremarkable. A normal atlantoaxial relationship is identified. Impression: 1. As above. Narrative Procedure Note Akira Liu MD - 02/11/2025 IMPRESSION: Please see below. Exam: XR CERVICAL SPINE 2 OR 3 VIEWS Date/Time of Exam: 02/11/2025 11:00 AM Reason For Exam: See Diagnosis. Diagnosis: Cervicalgia. Comparison: None. Findings: Five views of the cervical spine demonstrate reversal of the normal cervical lordosis secondary to spasm and/or positioning. Moderate degenerative disc space narrowing C5-6, C6-7, and C7-T1. Multilevel facet degenerative change. Prevertebral soft tissues and posterior elements otherwise are unremarkable. A normal atlantoaxial relationship is identified. Impression: 1. As above. us Dara Tavera TALENT ACQUISITION PROJECT MANAGER DIAGNOSTIC IMAGING ORDERABL ES Final Result * XR CHEST PA OR AP 1 [...] 6 <=10 ng/L 02/01/2025 6:42 PM CDT [facility] Blood Venipuncture / Unknown 02/01/2025 5:53 PM CDT 02/01/2025 6:24 PM CDT Narrative [facility] - 02/01/2025 6:42 PM CDT Troponin Detectable but normal range. Tommy Matthews MD CHEMISTRY ORDERABLES Fin al Result [facility] CLIA # [id number] [address] [place] [address] * (ABNORMAL) CBC WITH DIFFERENTIAL (02/01/2025 5:53 PM CDT) Only the most recent of3 resultswithin the time period is included. WBC 7.0 4.0 - 10.0 K/uL 02/01/2025 6:[address] [facility] RBC 3.72(L) 3.93 - 5.22 M/uL 02/01/2025 6:[address] [facility] HEMOGLOBIN 12.3 11.2 - 15.7 g/dL 02/01/2025 6:[address] [facility] HEMATOCRIT 35.9 34.1 - 44.9 % 02/01/2025 6:[address] [facility] MCV 96.5(H) 79.4 - 94.8 fL 02/01/2025 6:[address] [facility] MCH 33.1(H) 25.6 - 32.2 pg 02/01/2025 6:[address] [facility] MCHC 34.3 32.2 - 35.5 g/dL 02/01/2025 6:[address] [facility] RDW 13.6 11.0 - 14.5 % 02/01/2025 6:[address] [facility] RDW-STDEV 48.5 36.9 - 56.9 fL 02/01/2025 6:[address] [facility] PLATELETS 209 163 - 337 K/uL 02/01/2025 6:[address] [facility] MPV 10.0 10.0 - 14.8 fL 02/01/2025 6:[address] [facility] NEUTROPHILS 46 34 - 71 % 02/01/2025 6:[address] [facility] LYMPHOCYTES 40 19 - 52 % 02/01/2025 6:[address] [facility] MONOCYTES 10 5 - 13 % 02/01/2025 6:[address] [facility] EOSINOPHILS 3 1 - 6 % 02/01/2025 6:[address] [facility] BASOPHILS 1 0 - 1 % 02/01/2025 6:[address] [facility] IMMATURE GRANULOCYTES 0 % 02/01/2025 6:27 PM CDT [facility] NEUTROPHIL ABSOLUTE 3.18 1.56 - 6.13 K/uL 02/01/2025 6:27 PM CDT [facility] LYMPHOCYTE ABSOLUTE 2.81 1.20 - 3.40 K/uL 02/01/2025 6:27 PM CDT [facility] MONOCYTE ABSOLUTE 0.70(H) 0.24 - 0.36 K/uL 02/01/2025 6:27 PM CDT [facility] EOSINOPHIL ABSOLUTE 0.22 0.04 - 0.36 K/uL 02/01/2025 6:27 PM CDT [facility] BASOPHILS ABSOLUTE 0.07 0.01 - 0.08 K/uL 02/01/2025 6:27 PM CDT [facility] IMMATURE GRANULOCYTES ABSOLUTE 0.02 K/uL 02/01/2025 6:27 PM T [facility] Blood Venipuncture / Unknown 02/01/2025 5:53 PM CDT 02/01/2025 6:24 PM CDT us Tommy Matthews MD HEMATOLOGY ORDERABLES Fi nal [id number] [address] [place] [address] * (ABNORMAL) BRAIN NATRIURETIC PEPTIDE, BNP OR PROBNP (02/01/2025 5:53 PM CDT) PROBNP, N TERMINAL 260(H) 0 - 125 pg/mL 02/01/2025 6:42 PM CDT [facility] Comment: INTERPRETIVE COMMENT based on diagnosis: [...] Matthews MD CHEMISTRY ORDERABLES Fin al Result [facility] CLIA # [id number] [address] [place] [address] * (ABNORMAL) COMPREHENSIVE METABOLIC PANEL (02/01/2025 5:53 PM CDT) Only the most recent of3 resultswithin the time period is included. SODIUM 135(L) 136 - 145 mmol/L 02/01/2025 6:[address] [facility] POTASSIUM 3.8 3.5 - 5.1 mmol/L 02/01/2025 6:[address] [facility] CHLORIDE 101 98 - 107 mmol/L 02/01/2025 6:[address] [facility] CO2 21(L) 22 - 29 mmol/L 02/01/2025 6:[address] [facility] CALCIUM 9.4 8.6 - 10.0 mg/dL 02/01/2025 6:[address] [facility] BUN 14 6 - 20 mg/dL 02/01/2025 6:[address] [facility] CREATININE 1.01(H) 0.51 - 0.95 mg/dL 02/01/2025 6:[address] [facility] GLUCOSE 108(H) 74 - 99 mg/dL 02/01/2025 6:[address] [facility] TOTAL PROTEIN 6.3(L) 6.6 - 8.7 g/dL 02/01/2025 6:[address] [facility] ALBUMIN 4.0 3.5 - 5.2 g/dL 02/01/2025 6:[address] [facility] BILIRUBIN TOTAL 0.2 0.0 - 1.2 mg/dL 02/01/2025 6:42 PM CDT [facility] ALKALINE PHOSPHATASE 93 35 - 104 U/L 02/01/2025 6:42 PM CDT [facility] AST 17 0 - 35 U/L 02/01/2025 6:42 PM CDT [facility] ALT 11 0 - 35 U/L 02/01/2025 6:42 PM CDT [facility] GFR >60 >=60 mL/min/1.7 3 sq meter 02/01/2025 6:42 PM CDT [facility] Comment:eGFR calculated with 2020 CKD-EPI equation. Vegetarian diet, extremely high or low muscle mass, and may affect results. Cystatin C with Glomerular Filtration Rate is a suitable alternative for these patients. ANION GAP 13 5 - 20 mmol/L 02/01/2025 6:42 PM CDT [facility] Blood Venipuncture / Unknown 02/01/2025 5:53 PM CDT 02/01/2025 6:24 PM CDT us Tommy Matthews MD CHEMISTRY ORDERABLES Fin al Result [facility] # [id number] [address] [place] [address] * CT ABDOMEN PELVIS WO CONTRAST (01/19/2025 [...] disease suspected;UTI, recurrent/complicated (Female) ORDERING PROVIDER: SANJU BIGGS TECHNOLOGISTS NOTE: COMPARISON: January 14, 2025. TECHNIQUE: Contiguous [...] disease suspected;UTI, recurrent/complicated (Female) ORDERING PROVIDER: SANJU BIGGS TECHNKATELIN NOTE: COMPARISON: January 14, 2025. TECHNIQUE: Contiguous [...] hydronephrosis. Otherwise chronic changes. MACRO: None Sanju Biggs DO CT ORDERABLES Final Result * MANUAL DIFFERENTIAL (01/19/2025 6:37 PM CDT) PLATELET EST. Consistent w Count 01/19/2025 7:01 PM CDT [facility] RBC MORPHOLOGY Normal 01/19/2025 7:01 PM CDT [facility] Blood Venipuncture / Unknown 01/19/2025 6:37 PM CDT 01/19/2025 6:48 PM CDT Sanju Biggs HEMATOLOGY ORDERABLES COM Fin al Result Performing Organization Address [facility]/ZIP Co de Phone Number [facility] CLIA # [id number] [address] [place] [address] * (ABNORMAL) C-REACTIVE PROTEIN (01/19/2025 6:37 PM CDT) CRP 28.8(H) <5.0 mg/L 01/19/2025 7:05 PM CDT [facility] Blood Venipuncture / Unknown 01/19/2025 6:37 PM CDT 01/19/2025 6:48 PM CDT [facility] CHEMISTRY ORDERABLES Final Re sult Performing Organization Address City/[facility]/ZIP Co de Phone Number [facility] CLIA # [id number] [address] [place] [address] * LIPASE (01/19/2025 6:37 PM CDT) LIPASE 19 13 - 60 U/L 01/19/2025 7:05 PM CDT [facility] Blood Venipuncture / Unknown 01/19/2025 6:37 PM CDT 01/19/2025 6:48 PM CDT us [facility] CHEMISTRY ORDERABLES Final Re sult Performing Organization Address [facility]/ZIP Co de Phone Number [facility] CLIA # [id number] [address] [place] [address] * AMYLASE (01/19/2025 6:37 PM CDT) AMYLASE 33 28 - 100 U/L 01/19/2025 7:05 PM CDT [facility] Blood Venipuncture / Unknown 01/19/2025 6:37 PM CDT 01/19/2025 6:48 PM CDT us Sanju Barbcecilia CHEMISTRY ORDERABLES Final Re sult Performing Organization Address [facility] Co va Phone Number [facility] CLIA # [id number] [address] [place] [address] * (ABNORMAL) URINALYSIS WITH REFLEX MICROSCOPIC (01/14/2025 4:08 PM CDT) COLOR UA Yellow Pale to Dark Yellow 01/14/2025 4:22 PM CDT [facility] CLARITY UA Clear Clear 01/14/2025 4:22 PM CDT [facility] SPECIFIC GRAVITY UA 1.010 1.003 - 1.035 01/14/2025 4:22 PM T [facility] PH UA 6.0 5.0 - 8.0 01/14/2025 4:22 PM CDT [facility] LEUKOCYTE ESTERASE UA Trace(A) Negative 01/14/2025 4:22 PM CDT [facility] NITRITE UA Negative Negative 01/14/2025 4:22 PM CDT [facility] PROTEIN UA Negative Negative 01/14/2025 4:22 PM CDT [facility] GLUCOSE UA Negative Negative 01/14/2025 4:22 PM CDT [facility] KETONES UA Negative Negative 01/14/2025 4:22 PM CDT [facility] UROBILINOGEN UA 0.2 <2.0 mg/dL 4:22 PM CDT [facility] BILIRUBIN UA Negative Negative 01/14/2025 4:22 PM CDT [facility] BLOOD UA Trace(A) Negative 01/14/2025 4:22 PM CDT [facility] Urine URINE SPECIMEN OBTAINED BY CLEAN CATCH PROCEDURE / Unknown Collection / Unknown 01/14/2025 4:08 PM CDT 01/14/2025 4:20 PM CDT Corinna Sarabia MD URINE ORDERABLES Final Result [facility] CLIA # [id number] [address] [place] [address] * CT ABDOMEN PELVIS W CONTRAST (12/19/2024 [...] findings as above. Narrative Procedure Note Michael Peck, DO - 12/19/2024 IMPRESSION: Please see below. [...] abdominopelvic pathology. Incidental findings as above. Sanju Biggs DO CT ORDERABLES Final Result * XR [...] DIAGNOSTIC IMAGING ORDERA BLES Final Result * HEMOGLOBIN A1C (06/17/2018 7:12 AM STITCH BONDING MACHINE DRAWER IN) HEMOGLOBIN A1C 5.2 4.8 - 5.9 % 06/17/2018 9:37 AM STITCH BONDING MACHINE DRAWER IN [facility] EST. AVG GLUCOSE, A1C 103 mg/dL 06/17/2018 9:37 AM STITCH BONDING MACHINE DRAWER IN [facility] Blood Venipuncture / Unknown 06/17/2018 7:12 AM STITCH BONDING MACHINE DRAWER IN 06/17/2018 7:13 AM STITCH BONDING MACHINE DRAWER IN Narrative [facility] - 06/17/2018 9:37 AM STITCH BONDING MACHINE DRAWER IN If not available from last three months. 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
[2025-03-02 22:48] VITALS: BP 91/60; PULSE 89; RESP 16; TEMP 36.9; O2SAT 99; BMI 29.6
--- NOTE | 2025-03-03 00:43 | W.ED.ABDPA2 ---
Documented by User: ALBERT Russo 03/03/25 01:28 HPI - Abdominal Pain General: Chief Complaint: Abdominal Pain Stated Complaint: ABD Pain\Diar Time Seen by Provider: 03/03/25 00:31 Source: patient Mode of arrival: EMS Limitations: no limitations History of Present Illness: Patient is a 59-year-old well-known female here via EMS for evaluation of abdominal pain as well as diarrhea and nausea and vomiting. She states symptoms have been present over the past 3 days or so. She states she has a longstanding history of stomach problems and states her symptoms now are consistent with episodes she has had in the past. She states she has had multiple episodes of nausea and vomiting as well as multiple episodes of black watery diarrhea. She is not running fevers. Vital signs are stable upon arrival. Her blood pressure is soft but this is often normal for patient. She is not having any urinary complaints. Denies back pain. MD elicited complaint: abdominal pain Pertinent past history: other (chronic abdominal pain) Onset (ago): day(s) Pain Consistency: constant Location: Diffuse Severity: moderate Quality: cramping Radiation: none Migration to: no migration Exacerbating factors: nothing Relieving factors: nothing Associated Symptoms: Reports diarrhea, nausea and vomiting; Denies chills, dysuria, fever(s), hematochezia and hematuria Related Data Home Medications ?Medication ?Instructions ?Recorded ?Confirmed acetaminophen 500 mg tablet 1,000 mg PO Q6H PRN Pain 07/09/21 02/25/25 pantoprazole 40 mg tablet,delayed 40 mg PO BID 07/27/23 02/25/25 release ondansetron HCl 4 mg tablet 4 mg PO Q8H 01/22/24 02/25/25 prednisolone acetate 1 % eye drp ophthalmic (eye) 05/10/24 02/25/25 drops,suspension dicyclomine 10 mg capsule 10 mg PO BID PRN 05/27/24 02/25/25 sucralfate 1 gram tablet (Carafate) 1 g PO QID 05/27/24 02/25/25 famotidine 20 mg tablet mg PO 09/23/24 02/25/25 lubiprostone 24 mcg capsule mcg PO 09/23/24 02/25/25 Previous Rx's ?Medication ?Instructions ?Recorded nystatin 100,000 unit/gram topical 1 applic topical BID #30 grams 06/16/22 powder SOLE Supports #1 ea 01/01/24 fluticasone propionate 50 1 spray intranasal DAILY PRN nasal 05/10/24 mcg/actuation nasal congestion 30 days #16 grams spray,suspension (Flonase Allergy Relief) Rollator Walker #1 ea 09/06/24 promethazine 25 mg tablet 12.5 - 25 mg (0.5 - 1 x 25 mg) PO 10/05/24 Q6H PRN nausea and vomiting #10 tabs albuterol sulfate 90 mcg/actuation See Rx Instructions .Route 11/22/24 aerosol inhaler .COMPLEX #9 grams cholecalciferol (vitamin D3) 1,250 1,250 mcg PO .once a week 90 days 12/16/24 mcg (50,000 unit) capsule #12 caps quetiapine 25 mg tablet 25 mg PO BID PRN agitation #60 tabs 12/31/24 lamotrigine 200 mg tablet 200 mg PO DAILY@06 #30 tabs 02/04/25 quetiapine 25 mg tablet See Rx Instructions PO .COMPLEX 02/04/25 #90 tabs trazodone 300 mg tablet 300 mg PO .q hs PRN sleep #30 tabs 02/04/25 vortioxetine 20 mg tablet 20 mg PO .q am #30 tabs 02/04/25 (Trintellix) vortioxetine 5 mg tablet 5 mg PO DAILY #30 tabs 02/04/25 cyclobenzaprine 10 mg tablet 10 mg PO TID PRN muscle spasm #90 02/25/25 tabs Allergies Allergy/AdvReac Type Severity Reaction Status Date / Time haloperidol (From Haldol) Allergy Severe unknown Verified 02/25/25 09:17 Penicillins Allergy Severe ALGY-Anaphy Verified 02/25/25 09:17 laxis sulfamethoxazole (From Allergy Severe ALGY-Hives Verified 02/25/25 09:17 Bactrim) Tetracyclines Allergy Severe ALGY-Hives Verified 02/25/25 09:17 gabapentin (From Neurontin) Allergy Intermediate ADR-Halluci Verified 02/25/25 09:17 nating ketorolac (From Toradol) Allergy Intermediate ALGY-Rash Verified 02/25/25 09:17 lithium Allergy Intermediate ADR-Halluci Verified 02/25/25 09:17 nating fentanyl Allergy Mild rash Verified 02/25/25 09:17 adhesive tape Allergy Rash Verified 02/25/25 09:17 codeine Allergy GI Verified 02/25/25 09:17 duloxetine (From Cymbalta) Allergy ALGY-Rash Verified 02/25/25 09:17 fluoxetine Allergy ADR-Migrain Verified 02/25/25 09:17 e metoclopramide (From Reglan) Allergy ADR-Shakine Verified 02/25/25 09:17 ss nitroglycerin Allergy ADV-Weaknes Verified 02/25/25 09:17 s tramadol Allergy Unknown Verified 02/25/25 09:17 trimethoprim (From Bactrim) Allergy ALGY-Hives Verified 02/25/25 09:17 ziprasidone (From Geodon) AdvReac Severe ADR-Halluci Verified 02/25/25 09:17 nating risperidone (From Risperdal) AdvReac ADR-Halluci Verified 02/25/25 09:17 nating Review of Systems Const: Denies: fever(s), chills, body aches, fatigue or malaise Card: Denies: chest pain Resp: Denies: dyspnea GI: Reports: abdominal pain, nausea, vomiting and diarrhea; Denies: hematochezia : Denies: flank pain, dysuria or hematuria Musc: Denies: neck pain, back pain, extremity pain, extremity swelling, joint pain, joint swelling or joint redness Skin/Breast: Denies: rash Neuro: Denies: headache(s), numbness in extremities, weakness in extremities, sensory changes or dizziness PFSH ED PFSH: Medical History Chronic gastritis without bleeding Insomnia Tobacco use disorder Opioid dependence, uncomplicated Cannabis dependence, uncomplicated Psychiatric care Tardive dyskinesia Esophageal stricture Cystitis cystica Restrictive lung disease Chronic back pain greater than 3 months duration Borderline personality disorder Schizoaffective disorder, bipolar type Urgency incontinence Neurogenic bladder Dysphagia COPD (chronic obstructive pulmonary disease) GERD without esophagitis Foreign body in bladder Bladder stone Chronic anxiety Surgical History H/O bladder repair surgery MESH REPAIR H/O esophagogastroduodenoscopy (09/21/20) H/O colonoscopy with polypectomy History of foot surgery sx in 2009. Screws placed by Dr. Don. S/P bronchoscopy with biopsy History of ureter stent History of breast biopsy Hx of cholecystectomy H/O: hysterectomy History of appendectomy Family History Mother No problems noted. Father No problems noted. Other Asthma Cancer Diabetes Heart disease Social History Smoking and tobacco/nicotine status: never used tobacco/nicotine Quit status (tobacco/nicotine): considering quitting Second hand smoke exposure: Yes Alcohol intake: never Substance/Drug Use: former Lives independently: Yes Household members: spouse Marital status: Number of children: 3 Current occupational status: disabled Do you think of yourself as: Straight/Heterosexual Current gender identity: Female Physical Exam Const: COMMON NORMALS: no acute distress, average body habitus, patient oriented x3, no limitations, healthy appearing, alert and well nourished GENERAL APPEARANCE: cooperative ORIENTATION/CONSCIOUSNESS: Yes awake, Yes oriented to person, Yes oriented to place and Yes oriented to time Eye: COMMON NORMALS: no scleral icterus Resp: COMMON NORMALS: normal respiratory effort and clear to auscultation bilaterally AUSCULTATION: clear to auscultation bilaterally Cardio: COMMON NORMALS: regular rate and regular rhythm RATE: regular rate RHYTHM: regular rhythm GI: COMMON NORMALS: Normal to inspection, nondistended, normoactive bowel sounds present, Soft to palpation, No hepatosplenomegaly present and no masses INSPECTION: Yes normal to inspection AUSCULTATION: Yes normoactive bowel sounds PALPATION: Yes Soft to palpation, Yes Tenderness to palpation present (GI) (diffuse abdominal tenderness), No Guarding due to palpation present (GI), No Rigid due to palpation and Yes No hepatosplenomegaly present : COMMON NORMALS: Yes no CVA tenderness BLADDER/KIDNEY EXAM: Yes no CVA tenderness Back/Pelvis: COMMON NORMALS: no CVA tenderness, thoracic and lumbar spine normal to inspection and no thoracic nor lumbar tenderness Extremity: GENERAL: Yes normal exam except as noted Neuro: JEANINE COMA SCALE: document GCS findings Jeanine coma scale eye opening: Spontaneous [place] coma scale verbal response: Orientated Jeanine coma scale motor response: Obey commands [place] coma scale total score: 15 COMMON NORMALS: patient oriented x3, moves all extremities, no focal motor deficits and no sensory deficits noted SENSORIUM/ORIENTATION: Yes alert, Yes oriented to person, Yes oriented to place and Yes oriented to time Skin: COMMON NORMALS: no rashes or lesions noted GENERAL SKIN EXAM: no rashes or lesions noted Course ED course: Care transferred to Dr. Deleon pending remainder of labs and IV fluids/medications. ES Vital Signs: Vital signs: Vital Signs Temperature 98.4 F 03/02/25 22:48 Pulse Rate 82 03/03/25 02:39 Respiratory Rate 16 03/02/25 22:48 Blood Pressure 120/73 03/03/25 02:39 Pulse Oximetry 97 03/03/25 02:39 Oxygen Delivery Me thod Room Air 03/02/25 22:48 MDM - Abdominal Pain Lab Data 03/03/25 01:15 03/03/25 01:15 Labs/Radiology: Laboratory Results WBC 15.53 10^3/uL (3.29-11.43) H 03/03/25 01:15 RBC 4.11 10^6/uL (3.85-5.65) 03/03/25 01:15 Hgb 13.60 g/dL (11.27-16.99) 03/03/25 01:15 Hct 40.7 % (36-47) 03/03/25 01:15 MCV 99.0 fl (85-98) H 03/03/25 01:15 MCH 33.1 pg (27-33) H 03/03/25 01:15 MCHC 33.4 g/dL (30-55) 03/03/25 01:15 RDW 13.3 % (12.1-15.1) 03/03/25 01:15 Plt Count 204 10^3/cmm (157-399) 03/03/25 01:15 MPV 9.7 fL (7.4-10.4) 03/03/25 01:15 Neut % (Auto) 75.6 % 03/03/25 01:15 Lymph % (Auto) 15.5 % 03/03/25 01:15 [place] % (Auto) 6.4 % 03/03/25 01:15 Eos % (Auto) 1.5 % 03/03/25 01:15 Baso % (Auto) 0.6 % 03/03/25 01:15 Neut # (Auto) 11.74 10^3/uL (1.8-7.7) H 03/03/25 01:15 Lymph # (Auto) 2.4 10^3/uL (0.8-4.8) 03/03/25 01:15 [place] # (Auto) 1.0 10^3/uL (0.2-0.9) H 03/03/25 01:15 Eos # (Auto) 0.2 10^3/uL (0.0-0.8) 03/03/25 01:15 Baso # (Auto) 0.1 10^3/uL (0.0-0.1) 03/03/25 01:15 Nucleated RBC % (auto) 0 % 03/03/25 01:15 Nucleated RBCs # 0.0 /100WBC 03/03/25 01:15 Sodium 136 mmol/L (136-145) 03/03/25 01:15 Potassium 3.7 mmol/L (3.5-5.1) 03/03/25 01:15 Chloride 100 mmol/L (98-107) 03/03/25 01:15 Carbon Dioxide 24 mmol/L (22-29) 03/03/25 01:15 Anion Gap 15.7 (5-19) 03/03/25 01:15 BUN 14 mg/dL (6-20) 03/03/25 01:15 Creatinine 0.9 mg/dL (0.5-0.9) 03/03/25 01:15 GFR Calculation 64.5 mL/min (90-130) L 03/03/25 01:15 Glucose 94 mg/dL (65-115) 03/03/25 01:15 Calculated Osmolality 282 mOsm/kg (285-295) L 03/03/25 01:15 Calcium 9.8 mg/dL (8.5-10.5) 03/03/25 01:15 Total Bilirubin 0.3 mg/dL (0.15-1.2) 03/03/25 01:15 AST 16 U/L (0-32) 03/03/25 01:15 ALT 9 U/L (0-33) 03/03/25 01:15 Alkaline Phosphatase 122 U/L (35-105) H 03/03/25 01:15 Total Protein 7.5 g/dL (6.6-8.7) 03/03/25 01:15 Albumin 4.3 g/dL (3.5-5.2) 03/03/25 01:15 Globulin 3.2 g/dL (1.3-4.6) 03/03/25 01:15 Lipase 21 U/L (13-60) 03/03/25 01:15 Urine Color Yellow (Yellow) 03/03/25 00:54 Urine Appearance Clear (CLEAR) 03/03/25 00:54 Urine pH 6.0 (5-7) 03/03/25 00:54 Ur Specific [place] 1.007 (1.005-1.030) 03/03/25 00:54 Urine Protein Negative (Negative) 03/03/25 00:54 Urine Glucose (UA) Negative (Normal) 03/03/25 00:54 Urine Ketones Negative (Negative) 03/03/25 00:54 Urine Blood Negative (Negative) 03/03/25 00:54 Urine Nitrate Negative (Negative) 03/03/25 00:54 Urine Bilirubin Negative (Negative) 03/03/25 00:54 Urine Urobilinogen 0.2 mg/dL (Negative) 03/03/25 00:54 Ur Leukocyte Esterase Trace (Negative) A 03/03/25 00:54 Urine RBC 0-2 /hpf (0-2) 03/03/25 00:54 Urine WBC 0-5 /hpf (0-5) 03/03/25 00:54 Ur Squamous Epith Cells 0-5 /hpf (0-5) 03/03/25 00:54 Amorphous Sediment Not Reportable 03/03/25 00:54 Urine Bacteria None seen /hpf (NONE) 03/03/25 00:54 Hyaline Casts 0-4 /lpf H 03/03/25 00:54 Discharge Plan Discharge Patient Disposition: Home Clinical Impression: Abdominal pain Condition: Stable Prescriptions: No Action pantoprazole 40 mg tablet,delayed release (DR/EC) 40 mg PO BID (DME) SOLE Supports See Rx Instructions .Route .MEDSUPPLY Qty: 1 0RF Rx Instructions: As directed PRE-Auth prednisolone acetate 1 % drops,suspension ophthalmic (eye) fluticasone propionate [Flonase Allergy Relief] 50 mcg/actuation spray,suspension 1 spray intranasal DAILY PRN (Reason: nasal congestion) 30 Days Qty: 16 2RF Rx Instructions: administer into each nostril dicyclomine 10 mg capsule 10 mg PO BID PRN famotidine 20 mg tablet PO lubiprostone 24 mcg capsule PO quetiapine 25 mg tablet 25 mg PO BID PRN (Reason: agitation) Qty: 60 2RF Rx Instructions: Take one tablet up to twice a day, if needed, for agitation quetiapine 25 mg tablet See Rx Instructions PO .COMPLEX Qty: 90 1RF Rx Instructions: Take one tablet every morning and two tablets at bedtime; stop other doses vortioxetine 5 mg tablet 5 mg PO DAILY Qty: 30 1RF Rx Instructions: Take one tablet daily with the 20 mg dose Trintellix 20 mg tablet 20 mg PO .q am Qty: 30 1RF Rx Instructions: Take one tablet once daily trazodone 300 mg tablet 300 mg PO .q hs PRN (Reason: sleep) Qty: 30 1RF Rx Instructions: Take one tablet daily at bedtime, if needed for sleep lamotrigine 200 mg tablet 200 mg PO DAILY@06 Qty: 30 1RF Rx Instructions: Take one tablet by mouth every morning ondansetron HCl 4 mg tablet 4 mg PO Q8H sucralfate [Carafate] 1 gram tablet 1 g PO QID cyclobenzaprine 10 mg tablet 10 mg PO TID PRN (Reason: muscle spasm) Qty: 90 0RF nystatin 100,000 unit/gram powder 1 applic topical BID Qty: 30 0RF Rx Instructions: apply locally to B/L groin folds (DME) Rollator Walker See Rx Instructions .Route .MEDSUPPLY Qty: 1 0RF Rx Instructions: As directed HOME: Length of need 4 months albuterol sulfate 90 mcg/actuation HFA aerosol inhaler See Rx Instructions .ROUTE .COMPLEX Qty: 9 0RF Dose Instruction: INHALE 2 PUFFS BY MOUTH EVERY 6 HOURS NEEDED FOR SHORTNESS OF BREATH OR WHEEZING Rx Instructions: INHALE 2 PUFFS BY MOUTH EVERY 6 HOURS NEEDED FOR SHORTNESS OF BREATH OR WHEEZING cholecalciferol (vitamin D3) 1,250 mcg (50,000 unit) capsule 1,250 mcg PO .once a week 90 Days Qty: 12 0RF acetaminophen 500 mg Tablet 1,000 mg PO Q6H PRN (Reason: Pain) promethazine 25 mg tablet 12.5 - 25 mg PO Q6H PRN (Reason: nausea and vomiting) Qty: 10 0RF Rx Instructions: 4 doses during day; last dose no later than 4 hr before bedtime Discharge Orders: Discharge ED (Routine); Ordered 03/03/25 Ordered By: Chivo Deleon Referrals: Dara Tavera FNP [Primary Care Provider, Family Practice] - 1-3 days Patient Instructions: Abdominal Pain (ED), Opioid Safety, Pain Management, Patient Portal & [place] Instructions Activity Restrictions/Additional Instructions: Return for problems Print Language: Persian Coding Level of Care Code ED Molded Parts Inspector for Chg Fwd Documented by User: Chivo Deleon, 03/03/25 04:10 HPI - Abdominal Pain General: Chief Complaint: Abdominal Pain Stated Complaint: ABD Pain\Diar Time Seen by Provider: 03/03/25 00:31 Related Data Home Medications ?Medication ?Instructions ?Recorded ?Confirmed acetaminophen 500 mg tablet 1,000 mg PO Q6H PRN Pain 07/09/21 02/25/25 pantoprazole 40 mg tablet,delayed 40 mg PO BID 07/27/23 02/25/25 release ondansetron HCl 4 mg tablet 4 mg PO Q8H 01/22/24 02/25/25 prednisolone acetate 1 % eye drp ophthalmic (eye) 05/10/24 02/25/25 drops,suspension dicyclomine 10 mg capsule 10 mg PO BID PRN 05/27/24 02/25/25 sucralfate 1 gram tablet (Carafate) 1 g PO QID 05/27/24 02/25/25 famotidine 20 mg tablet mg PO 09/23/24 02/25/25 lubiprostone 24 mcg capsule mcg PO 09/23/24 02/25/25 Previous Rx's ?Medication ?Instructions ?Recorded nystatin 100,000 unit/gram topical 1 applic topical BID #30 grams 06/16/22 powder SOLE Supports #1 ea 01/01/24 fluticasone propionate 50 1 spray intranasal DAILY PRN nasal 05/10/24 mcg/actuation nasal congestion 30 days #16 grams spray,suspension (Flonase Allergy Relief) Rollator Walker #1 ea 09/06/24 promethazine 25 mg tablet 12.5 - 25 mg (0.5 - 1 x 25 mg) PO 10/05/24 Q6H PRN nausea and vomiting #10 tabs albuterol sulfate 90 mcg/actuation See Rx Instructions .Route 11/22/24 aerosol inhaler .COMPLEX #9 grams cholecalciferol (vitamin D3) 1,250 1,250 mcg PO .once a week 90 days 12/16/24 mcg (50,000 unit) capsule #12 caps quetiapine 25 mg tablet 25 mg PO BID PRN agitation #60 tabs 12/31/24 lamotrigine 200 mg tablet 200 mg PO DAILY@06 #30 tabs 02/04/25 quetiapine 25 mg tablet See Rx Instructions PO .COMPLEX 02/04/25 #90 tabs trazodone 300 mg tablet 300 mg PO .q hs PRN sleep #30 tabs 02/04/25 vortioxetine 20 mg tablet 20 mg PO .q am #30 tabs 02/04/25 (Trintellix) vortioxetine 5 mg tablet 5 mg PO DAILY #30 tabs 02/04/25 cyclobenzaprine 10 mg tablet 10 mg PO TID PRN muscle spasm #90 02/25/25 tabs Allergies Allergy/AdvReac Type Severity Reaction Status Date / Time haloperidol (From Haldol) Allergy Severe unknown Verified 02/25/25 09:17 Penicillins Allergy Severe ALGY-Anaphy Verified 02/25/25 09:17 laxis sulfamethoxazole (From Allergy Severe ALGY-Hives Verified 02/25/25 09:17 Bactrim) Tetracyclines Allergy Severe ALGY-Hives Verified 02/25/25 09:17 gabapentin (From Neurontin) Allergy Intermediate ADR-Halluci Verified 02/25/25 09:17 nating ketorolac (From Toradol) Allergy Intermediate ALGY-Rash Verified 02/25/25 09:17 lithium Allergy Intermediate ADR-Halluci Verified 02/25/25 09:17 nating fentanyl Allergy Mild rash Verified 02/25/25 09:17 adhesive tape Allergy Rash Verified 02/25/25 09:17 codeine Allergy GI Verified 02/25/25 09:17 duloxetine (From Cymbalta) Allergy ALGY-Rash Verified 02/25/25 09:17 fluoxetine Allergy ADR-Migrain Verified 02/25/25 09:17 e metoclopramide (From Reglan) Allergy ADR-Shakine Verified 02/25/25 09:17 ss nitroglycerin Allergy ADV-Weaknes Verified 02/25/25 09:17 s tramadol Allergy Unknown Verified 02/25/25 09:17 trimethoprim (From Bactrim) Allergy ALGY-Hives Verified 02/25/25 09:17 ziprasidone (From Geodon) AdvReac Severe ADR-Halluci Verified 02/25/25 09:17 nating risperidone (From Risperdal) AdvReac ADR-Halluci Verified 02/25/25 09:17 nating PFSH ED PFSH: Medical History Chronic gastritis without bleeding Insomnia Tobacco use disorder Opioid dependence, uncomplicated Cannabis dependence, uncomplicated Psychiatric care Tardive dyskinesia Esophageal stricture Cystitis cystica Restrictive lung disease Chronic back pain greater than 3 months duration Borderline personality disorder Schizoaffective disorder, bipolar type Urgency incontinence Neurogenic bladder Dysphagia COPD (chronic obstructive pulmonary disease) GERD without esophagitis Foreign body in bladder Bladder stone Chronic anxiety Surgical History H/O bladder repair surgery MESH REPAIR H/O esophagogastroduodenoscopy (09/21/20) H/O colonoscopy with polypectomy History of foot surgery sx in 2009. Screws placed by Dr. Don. S/P bronchoscopy with biopsy History of ureter stent History of breast biopsy Hx of cholecystectomy H/O: hysterectomy History of appendectomy Family History Mother No problems noted. Father No problems noted. Other Asthma Cancer Diabetes Heart disease Social History Smoking and tobacco/nicotine status: never used tobacco/nicotine Quit status (tobacco/nicotine): considering quitting Second hand smoke exposure: Yes Alcohol intake: never Substance/Drug Use: former Lives independently: Yes Household members: spouse Marital status: Number of children: 3 Current occupational status: disabled Do you think of yourself as: Straight/Heterosexual Current gender identity: Female Physical Exam Neuro: JEANINE COMA SCALE: document GCS findings Jeanine coma scale total score: 15 Course Vital Signs: Vital signs: Vital Signs Temperature 98.4 F 03/02/25 22:48 Pulse Rate 82 03/03/25 02:39 Respiratory Rate 16 03/02/25 22:48 Blood Pressure 120/73 03/03/25 02:39 Pulse Oximetry 97 03/03/25 02:39 Oxygen Delivery Me thod Room Air 03/02/25 22:48 MDM - Abdominal Pain Medical Decision Making Vital signs are stable. White blood cell count is 15 which is an improvement from prior. Urinalysis is negative. The rest of her CBC and BMP are normal. Pain is improved following pain medication and antiemetics along with IV fluids. She will be discharged. Outpatient follow-up. Return for new symptoms. Lab Data 03/03/25 01:15 03/03/25 01:15 Labs/Radiology: Laboratory Results WBC 15.53 10^3/uL (3.29-11.43) H 03/03/25 01:15 RBC 4.11 10^6/uL (3.85-5.65) 03/03/25 01:15 Hgb 13.60 g/dL (11.27-16.99) 03/03/25 01:15 Hct 40.7 % (36-47) 03/03/25 01:15 MCV 99.0 fl (85-98) H 03/03/25 01:15 MCH 33.1 pg (27-33) H 03/03/25 01:15 MCHC 33.4 g/dL (30-55) 03/03/25 01:15 RDW 13.3 % (12.1-15.1) 03/03/25 01:15 Plt Count 204 10^3/cmm (157-399) 03/03/25 01:15 MPV 9.7 fL (7.4-10.4) 03/03/25 01:15 Neut % (Auto) 75.6 % 03/03/25 01:15 Lymph % (Auto) 15.5 % 03/03/25 01:15 [place] % (Auto) 6.4 % 03/03/25 01:15 Eos % (Auto) 1.5 % 03/03/25 01:15 Baso % (Auto) 0.6 % 03/03/25 01:15 Neut # (Auto) 11.74 10^3/uL (1.8-7.7) H 03/03/25 01:15 Lymph # (Auto) 2.4 10^3/uL (0.8-4.8) 03/03/25 01:15 [place] # (Auto) 1.0 10^3/uL (0.2-0.9) H 03/03/25 01:15 Eos # (Auto) 0.2 10^3/uL (0.0-0.8) 03/03/25 01:15 Baso # (Auto) 0.1 10^3/uL (0.0-0.1) 03/03/25 01:15 Nucleated RBC % (auto) 0 % 03/03/25 01:15 Nucleated RBCs # 0.0 /100WBC 03/03/25 01:15 Sodium 136 mmol/L (136-145) 03/03/25 01:15 Potassium 3.7 mmol/L (3.5-5.1) 03/03/25 01:15 Chloride 100 mmol/L (98-107) 03/03/25 01:15 Carbon Dioxide 24 mmol/L (22-29) 03/03/25 01:15 Anion Gap 15.7 (5-19) 03/03/25 01:15 BUN 14 mg/dL (6-20) 03/03/25 01:15 Creatinine 0.9 mg/dL (0.5-0.9) 03/03/25 01:15 GFR Calculation 64.5 mL/min (90-130) L 03/03/25 01:15 Glucose 94 mg/dL (65-115) 03/03/25 01:15 Calculated Osmolality 282 mOsm/kg (285-295) L 03/03/25 01:15 Calcium 9.8 mg/dL (8.5-10.5) 03/03/25 01:15 Total Bilirubin 0.3 mg/dL (0.15-1.2) 03/03/25 01:15 AST 16 U/L (0-32) 03/03/25 01:15 ALT 9 U/L (0-33) 03/03/25 01:15 Alkaline Phosphatase 122 U/L (35-105) H 03/03/25 01:15 Total Protein 7.5 g/dL (6.6-8.7) 03/03/25 01:15 Albumin 4.3 g/dL (3.5-5.2) 03/03/25 01:15 Globulin 3.2 g/dL (1.3-4.6) 03/03/25 01:15 Lipase 21 U/L (13-60) 03/03/25 01:15 Urine Color Yellow (Yellow) 03/03/25 00:54 Urine Appearance Clear (CLEAR) 03/03/25 00:54 Urine pH 6.0 (5-7) 03/03/25 00:54 Ur Specific [place] 1.007 (1.005-1.030) 03/03/25 00:54 Urine Protein Negative (Negative) 03/03/25 00:54 Urine Glucose (UA) Negative (Normal) 03/03/25 00:54 Urine Ketones Negative (Negative) 03/03/25 00:54 Urine Blood Negative (Negative) 03/03/25 00:54 Urine Nitrate Negative (Negative) 03/03/25 00:54 Urine Bilirubin Negative (Negative) 03/03/25 00:54 Urine Urobilinogen 0.2 mg/dL (Negative) 03/03/25 00:54 Ur Leukocyte Esterase Trace (Negative) A 03/03/25 00:54 Urine RBC 0-2 /hpf (0-2) 03/03/25 00:54 Urine WBC 0-5 /hpf (0-5) 03/03/25 00:54 Ur Squamous Epith Cells 0-5 /hpf (0-5) 03/03/25 00:54 Amorphous Sediment Not Reportable 03/03/25 00:54 Urine Bacteria None seen /hpf (NONE) 03/03/25 00:54 Hyaline Casts 0-4 /lpf H 03/03/25 00:54 No radiology studies performed this visit Discharge Plan Discharge Patient Disposition: Home Clinical Impression: Abdominal pain Condition: Stable Prescriptions: No Action pantoprazole 40 mg tablet,delayed release (DR/EC) 40 mg PO BID (DME) SOLE Supports See Rx Instructions .Route .MEDSUPPLY Qty: 1 0RF Rx Instructions: As directed PRE-Auth prednisolone acetate 1 % drops,suspension ophthalmic (eye) fluticasone propionate [Flonase Allergy Relief] 50 mcg/actuation spray,suspension 1 spray intranasal DAILY PRN (Reason: nasal congestion) 30 Days Qty: 16 2RF Rx Instructions: administer into each nostril dicyclomine 10 mg capsule 10 mg PO BID PRN famotidine 20 mg tablet PO lubiprostone 24 mcg capsule PO quetiapine 25 mg tablet 25 mg PO BID PRN (Reason: agitation) Qty: 60 2RF Rx Instructions: Take one tablet up to twice a day, if needed, for agitation quetiapine 25 mg tablet See Rx Instructions PO .COMPLEX Qty: 90 1RF Rx Instructions: Take one tablet every morning and two tablets at bedtime; stop other doses vortioxetine 5 mg tablet 5 mg PO DAILY Qty: 30 1RF Rx Instructions: Take one tablet daily with the 20 mg dose Trintellix 20 mg tablet 20 mg PO .q am Qty: 30 1RF Rx Instructions: Take one tablet once daily trazodone 300 mg tablet 300 mg PO .q hs PRN (Reason: sleep) Qty: 30 1RF Rx Instructions: Take one tablet daily at bedtime, if needed for sleep lamotrigine 200 mg tablet 200 mg PO DAILY@06 Qty: 30 1RF Rx Instructions: Take one tablet by mouth every morning ondansetron HCl 4 mg tablet 4 mg PO Q8H sucralfate [Carafate] 1 gram tablet 1 g PO QID cyclobenzaprine 10 mg tablet 10 mg PO TID PRN (Reason: muscle spasm) Qty: 90 0RF nystatin 100,000 unit/gram powder 1 applic topical BID Qty: 30 0RF Rx Instructions: apply locally to B/L groin folds (DME) Rollator Walker See Rx Instructions .Route .MEDSUPPLY Qty: 1 0RF Rx Instructions: As directed HOME: Length of need 4 months albuterol sulfate 90 mcg/actuation HFA aerosol inhaler See Rx Instructions .ROUTE .COMPLEX Qty: 9 0RF Dose Instruction: INHALE 2 PUFFS BY MOUTH EVERY 6 HOURS NEEDED FOR SHORTNESS OF BREATH OR WHEEZING Rx Instructions: INHALE 2 PUFFS BY MOUTH EVERY 6 HOURS NEEDED FOR SHORTNESS OF BREATH OR WHEEZING cholecalciferol (vitamin D3) 1,250 mcg (50,000 unit) capsule 1,250 mcg PO .once a week 90 Days Qty: 12 0RF acetaminophen 500 mg Tablet 1,000 mg PO Q6H PRN (Reason: Pain) promethazine 25 mg tablet 12.5 - 25 mg PO Q6H PRN (Reason: nausea and vomiting) Qty: 10 0RF Rx Instructions: 4 doses during day; last dose no later than 4 hr before bedtime Discharge Orders: Discharge ED (Routine); Ordered 03/03/25 Ordered By: Chivo Deleon Referrals: Dara Tavera, HISTORIOGRAPHY TEACHER [Primary Care Provider, Family Practice] - 1-3 days Patient Instructions: Abdominal Pain (ED), Opioid Safety, Pain Management, Patient Portal & [place] Instructions Activity Restrictions/Additional Instructions: Return for problems Print Language: Persian Coding Level of Care Code ED Molded Parts Inspector for Shellie Guallpa
[2025-03-03 01:07] LABS: Glucose Urine UA Negative (Normal); Nitrate Urine Negative (Negative); Specific Gravity, Urine 1.007 (1.005-1.030)
[2025-03-03 01:12] LABS: Add Urine Microscopic? YES
[2025-03-03 01:20] LABS: Hematocrit 40.7 % (36-47); Hemoglobin 13.60 g/dL (11.27-16.99); Mean Corpuscular HGB Conc 33.4 g/dL (30-55); Mean Corpuscular Hemoglobin 33.1 pg (27-33); Mean Corpuscular Volume 99.0 fl (85-98); Nucleated Red Blood Cells % 0 %; Platelet Count 204 10^3/cmm (157-399); Red Blood Count 4.11 10^6/uL (3.85-5.65); White Blood Count 15.53 10^3/uL (3.29-11.43)
[2025-03-03 01:38] LABS: Alanine Aminotransferase 9 U/L (0-33); Albumin Level 4.3 g/dL (3.5-5.2); Alkaline Phosphatase 122 U/L (35-105); Anion Gap 15.7 (5-19); Aspartate Amino Transferase 16 U/L (0-32); Blood Urea Nitrogen 14 mg/dL (6-20); Calcium 9.8 mg/dL (8.5-10.5); Carbon Dioxide 24 mmol/L (22-29); Chloride 100 mmol/L (98-107); Creatinine Clr Calc Pharmacy 64.7283; Globulin 3.2 g/dL (1.3-4.6); Glucose 94 mg/dL (65-115); Lipase 21 U/L (13-60); Osmolality Calculated 282 mOsm/kg (285-295); Potassium 3.7 mmol/L (3.5-5.1); Sodium 136 mmol/L (136-145); Total Protein 7.5 g/dL (6.6-8.7)
[2025-03-03] MEDS: HYDROmorphone 0.5 MG/0.5 ML INJ 1 MG IVP (02:08)
[2025-03-03 02:39] VITALS: BP 120/73; PULSE 82; O2SAT 97
== END 2025-03-03 03:39 | disposition home or self-care (01) ==
PROVIDERS: Emergency Provider Physician Assistant; PCP Registered Nurse
DX: R10.9 Unspecified abdominal pain (principal); J44.9 Chronic obstructive pulmonary disease, unspecified
CPT/HCPCS: 36415; 80053; 81001; 83690; 85025; 96374; 96375; 99284; J0780; J1171; J7030

== ENCOUNTER → 2025-03-03 13:01 | Outpatient (BNVA) | payer OTHER, MEDICAID, SELFPAY | PROVIDERS: PCP Registered Nurse; Visit Provider Nurse Practitioner Family | DX: M79.18 Myalgia, other site (principal); M54.2 Cervicalgia; G89.29 Other chronic pain | CPT/HCPCS: 20550; 20553; 99214; J1010; J3490 ==

== ENCOUNTER 2025-03-07 07:43 | Outpatient (CLI) | payer OTHER, MEDICAID, SELFPAY ==
--- NOTE | 2025-03-07 07:50 | MM_ITS ---
WS: [id number] BILATERAL SCREENING DIGITAL TOMOSYNTHESIS MAMMOGRAM WITH CAD HISTORY: SCREENING COMPARISON: 03/05/2024, 04/12/2013 Bilateral CC and MLO views with tomosynthesis and synthetic mammography submitted. Computer aided detection analyzed. Breast composition: There are scattered areas of fibroglandular density. No suspicious masses, microcalcifications or architectural distortion. Numerous benign calcifications in each breast. No distortion. No mass. MM/MM scr tomosynthesis [id number] IMPRESSION: BI-RADS: 2 - Benign. FOLLOW UP: 1 Year Follow-up
== END 2025-03-07 07:44 | disposition home or self-care (01) ==
LOC: RAD 07:44
PROVIDERS: PCP Registered Nurse; Visit Provider Registered Nurse
DX: Z12.31 Encounter for screening mammogram for malignant neoplasm of breast (principal)
CPT/HCPCS: 77063; 77067

== ENCOUNTER 2025-03-23 21:37 | Emergency (ER) | payer OTHER, MEDICAID, SELFPAY ==
--- OUTSIDE RECORDS SUMMARY | 2025-03-18 08:36 | XMS_ITS | Encounter Summary ---
Author Organization [facility] Address [address] [place] [address] Care Team Providers Care Director Of Primary Name Role Phone Sally Dong MD Primary Care Provider [phone] Reason for Visit * Reason Comments Neck Pain Encounter Details Date Type Department Care Team (Late st Contact Info) Description 03/18/2025 8:36 AM CDT - 03/18/2025 10:[address] [facility] Emergency Medicine [address] [place] [id number] Neck pain (Primary Dx) Discharge Disposition: Home or Self Care Social History Tobacco Use Types Packs/Day Years Used Date Smoking Tobacco: Some Days Cigarettes Smokeless Tobacco: Never Alcohol Use Standard [...] asked 05/05/2019 How often do you attend alevism or denominational serv ices? Not asked 05/05/2019 Do you belong to any clubs o r organizations such as alevism groups, unions, fraternal or athletic groups, or [...] who hurts you emotionally and/or physically? No 03/18/2025 Food Insecurity Answer Date Recorded Social/Environmental Concerns No concerns Transportation Needs Answer Date Record ed Social/Environmental Concerns No concerns Housing Stability Answer Date Recorded Social/Environmental Concerns No concerns Utility Needs Answer Date Recorded Social/Environmental Concerns No concerns Comments No Sex and Gender Information Value Date Recorded Sex Assigned at Female 03/25/2024 4:14 PM CDT Legal Sex Female 2:06 AM [employer] Gender Identity Female 03/25/2024 4:14 PM CDT Sexual Orientation Not on file documented as of this encounter Last Filed Vital Signs Vital Sign Reading Time Taken Comments Blood Pressure 150/82 03/18/2025 10:00 AM CDT Pulse 74 03/18/2025 10:00 AM CDT Temperature 36.7 C (98 F) 03/18/2025 8:37 AM CDT Respiratory Rate 20 03/18/2025 10:00 AM CDT Oxygen Saturation 100% 03/18/2025 10:00 AM CDT Inhaled Oxygen Concentration - - Weight 75.3 kg (166 lb) 03/18/2025 8:37 AM CDT Height 157.5 cm (5' 2 ) 03/18/2025 8:37 AM CDT Body Mass Index 30.36 03/18/2025 8:37 AM CDT documented in this encounter Discharge Instructions * Discharge Instructions* Rody Frost APRN - 03/18/2025 9:59 AM CDT - return here for new or worsening symptoms - follow up with PCP as needed - please keep your appointment with your pain management clinic * Attachments The following attachments cannot be sent through Care Everywhere. * Cervical Pain ([place]) documented in this encounter Medications at Time of Discharge cyclobenzaprine (FLEXERIL) 10 mg tablet Take 10 mg by mouth 3 times daily as needed for Spasm. famotidine (PEPCID) 20 mg tablet Take 20 mg by mouth 2 times daily. sucralfate (CARAFATE) 1 gram tablet Take 1 Gram by mouth 2 times daily. lubiprostone (AMITIZA) 8 mcg Capsule Take 24 mcg by mouth 2 times daily with meals. QUEtiapine (SEROquel) 25 mg tablet Take 50 [...] mg by mouth 2 times daily. 02/06/2018 tiZANidine (ZANAFLEX) 2 mg Tablet Take 1 Tablet (2 mg) by mouth every 6 hours as needed for Spasm. 30 Tablet 02/20/2025 orphenadrine (NORFLEX) 100 mg Extended Release tablet Take 1 Tablet (100 mg) by mouth 2 times daily. 20 Tablet 02/09/2025 vortioxetine (Trintellix) 5 mg tablet Take 5 mg by mouth daily. acetaminophen (TYLENOL ARTHRITIS) 650 mg Extended Release tablet Take 650 mg by mouth every 6 hours as needed for Pain. diphenoxylate-at ropine 2.5 mg-0.025 mg tablet Take 1 Tablet by mouth 4 times daily as needed for Diarrhea/Loose Stools. 30 Tablet 12/19/2024 naloxone (NARCAN) 4 mg/spray [place], Non-Aerosol EMERGENCY USE ONLY: Administer 1 spray [...] needed for Nausea/Emesis. 10 Suppository 1 07/27/2024 acetaminophen (TYLENOL) 500 mg tablet Take 1,000 mg by mouth every 6 hours as needed. diphenhydrAMINE (BENADRYL) 25 mg tablet Take 50 mg by mouth every 8 hours as needed for Allergies. ondansetron (ZOFRAN ODT) 8 mg Tablet, Rapid Dissolve Dissolve 1 tablet on top of tongue then swallow with saliva every 8 hours as needed for nausea or vomiting 20 Tablet 12/03/2023 vortioxetine (Trintellix) 20 mg tablet Take 5 mg by mouth daily at bedtime. LAMOTRIGINE ORAL Take by mouth daily. albuterol HFA 90 mcg inhaler Use 4 puffs every 4 hours as needed but sooner if necessary. 8.5 Gram 0 01/24/2020 documented as of this encounter ED Notes * Steffany Rees RN - 03/18/2025 9:10 AM CDT Spoke with pain management regarding patient being sent here. Pain management states the patient received a trigger point injection on 03/03/25 and was scheduled to be seen on 03/17/25 but called stating she had a in the family and needed to reschedule her follow up apt. Pain management states they do not have a pain contract with this patient and the patient did call them this morning requesting to get in but they had no availability. * Steffany Rees RN - 03/18/2025 8:43 AM CDT Patient arrived to the ED via private vehicle. Patient states the [facility] clinic sent her here because they could not get her on their schedule today. Patient states she sees the [facility] clinic for her pain medication. Patient states a friend dropped her off here this morning in a car. This RN requested clarification because she was witness pulling in on a scooter. Patient then states she was sorry that she forgot she drove her scooter here this morning an if we give her pain medications she can ask her friend to come get her. Patient states she has not had a good couple of days because [facility] is giving her issues with her medications. This RN voiced understanding. Patient states her neckpain started last night at midnight and she has taken her flexeril and did her stretches and also took a hot shower but the pain is still there. * Rody Frost, NETWORK COORDINATOR - 03/18/2025 8:20 AM CDT HISTORY OF PRESENT ILLNESS Patient is a 89-year-old female well-known to this emergency department. She has medical history aslisted below. She arrives today with complaint of neck pain. She has chronic neck pain and is managed by the pain clinic at [facility]. She stated that she had trigger point injections done onthe however last night her neck became significantly worse she did call the pain clinic this morning to try to get into them however they were full and recommended that she come to the emergencydepartment. We did call the pain clinic this morning to assess her contract status she does not currently have a pain contract however they are managing the care of her neck pain. She did have a follow-up appointment scheduled for yesterday which she called and rescheduled. She stated to the clinicthat this was due to in the family however later told me that she did not go to her follow-upappointment because she was sick. Is unclear as to the actual reason why she did not keep her follow -up appointment and has been rescheduled for a couple of weeks. She says that she did take her Flexeril this morning at 4 AM but it did not help she also tried hot shower which did not help. Patient says she is only here for pain relief. She did initially tell the nurse that she was driven here by a friend so that she could receive pain medication however this was untrue as we witnessed her riding her scooter to the hospital. Neck Pain PAST MEDICAL HISTORY REVIEWED MEDICAL: Patient has a past medical history of Acute cystitis, Ankle fracture, left, Anxiety, Arthritis, Asthma, Atrial fibrillation ([facility]), Avascular necrosis ([facility]), Bipolar disorder ([facility]), Bladder stones, Bronchitis, Calculus of kidney, Cannabinoid hyperemesis syndrome, Clostridium difficile enterocolitis, Colitis, Community acquired pneumonia, Congestive heart failure ([facility]) (02/17/2022),COPD (chronic obstructive pulmonary disease) ([facility]), Depression, Diverticulitis, Drug-seeking behavior, Flank pain, Flu, Gastritis, Gastroparesis, GERD (gastroesophageal reflux disease), Hematuria, HTN (hypertension), Hyperlipidemia, Hypotension, IBS (irritable bowel syndrome) (07/21/2020), IBS (irritable bowel syndrome), Influenza, Migraines, MRSA (methicillin resistant staph aureus) culture positive, MRSA (methicillin resistant Staphylococcus aureus), Pneumonia, PTSD (post-traumatic stress disorder) (04/29/2013), Rectal bleeding, Respiratory failure ([facility]), Schizoaffective disorder ([facility]), Seizure disorder ([facility]), Shortness of breath, Somatization disorder, Substance abuse ([facility]), Suicidal ideation, URI (upper respiratory infection), UTI [...] ALLERGIES Fentanyl, Tetracycline, Tramadol, Duloxetine, Fluoxetine, Haloperidol, Aline, Metoclopramide hcl,Risperidone, Adhesive, Codeine, Gabapentin, Ketorolac tromethamine, Penicillins, Tetracyclines, andZiprasidone hcl PHYSICAL EXAM INITIAL VS BP: 135/83 (03/18/25836), Heart Rate: 88 bpm (03/18/25836), Resp: 20 (03/18/25836), Pulse: 72(03/18/25929), Temp: 98 ??F (36.7 ??C) (03/18/25836), Temp src: Temporal (03/18/25836), SpO2:97 % (03/18/25836), Height: 5' 2 (157.5 cm) (03/18/25836), Weight: 75.3 kg (166 lb) (03/18/25836), BMI (Calculated): (!) 30.36 (03/18/25836) No LMP recorded. Patient has had a hysterectomy. Physical Exam Constitutional: General: She is not in acute distress. Appearance: Normal appearance. She is normal weight. She is not ill-appearing. HENT: Nose: No congestion. Mouth/Throat: Mouth: Mucous membranes are moist. Pharynx: Oropharynx is clear. Eyes: Pupils: Pupils are equal, round, and reactive to light. Cardiovascular: Rate and Rhythm: Normal rate and regular rhythm. Pulses: Normal pulses. Heart sounds: Normal heart sounds. Pulmonary: Effort: Pulmonary effort is normal. Breath sounds: Normal breath sounds. Abdominal: General: Abdomen is flat. There is no distension. Palpations: Abdomen is soft. Tenderness: There is no abdominal tenderness. There is no guarding. Musculoskeletal: General: Normal range of motion. Cervical back: Pain with movement and muscular tenderness present. No spinous process tenderness. Skin: General: Skin is warm and dry. Capillary Refill: Capillary refill takes less than 2 seconds. Neurological: General: No focal deficit present. Mental Status: She is alert and oriented to person, place, and time. Mental status is at baseline. DIAGNOSTICS LAB: No data to display RADIOLOGY: No orders to display EKG: PROCEDURES Procedures MEDICAL DECISION MAKING AND PLAN OF CARE Medical Decision Making The patient arrived for pain relief from her chronic neck pain after missing an appointment at her pain management clinic yesterday. They advised that she come in today because they could not see yuniel her schedule is full. The patient has had extensive imaging and is managed frequently for this neck pain so today we offered her a Toradol injection and lidocaine patch. She is agreeable to this pl an patient will be discharged with instructions to follow-up as scheduled with her pain management clinic. Risk OTC drugs. Prescription drug management. Clinical Scoring & Consults Medications Administered During the ED Stay from 03/18/2025 0820 to 03/18/202559 Date/Time Order Dose Route Action 03/18/2025948 CDT Lidocaine 4 % topical patch 1 Patch 1 Patch Topical Applied 03/18/2025948 CDT ketorolac (TORADOL) injection 30 mg 30 mg IM Given . New Prescriptions for this Encounter LAST VS BP: (!) 150/82 (03/18/25944), Heart Rate: 88 bpm (03/18/25836), Resp: 20 (03/18/25944), Pulse: 68 (03/18/25944), Temp: 98 ??F (36.7 ??C) (03/18/25836), Temp src: Temporal (03/18/25836), SpO2: 99 % (03/18/25944) CLINICAL IMPRESSION Diagnosis Diagnosis Comment Added By Time Added Neck pain [M54.2] Rody Frost APRN 03/18/2025 9:58 AM DISPOSITION, EDUCATION AND MEDICATION RECONCILIATION Medications reconciled. See after visit summary for patient education on discharged patients. ED Disposition ED Disposition Discharge Condition Stable User Rody Frost APRN Date/Time MonMar 18, 2025 9:58 AM Comment -- ATTESTATION STATEMENTS Diagnosis Diagnosis Comment Added By Time Added Neck pain [M54.2] Rody Frost APRN 03/18/2025 9:58 AM Cosigned by Corinna Sarabia MD at 03/18/2025 4:54 PM CDT documented in this encounter Plan of Treatment Not on file documented as of this encounter Visit Diagnoses Diagnosis Neck pain- Primary Cervicalgia documented in this encounter Administered Medications Inactive Administered Medications - up to 3 most recent administrations Medication Order MAR Action Action Date Dose Rate Site ketorolac (TORADOL) injection 30 mg 30 mg, IM, ONE TIME ONLY, 1 dose, On e 03/18/25 at 0945, Routine Given 03/18/2025 9:49 AM CDT 30 mg Deltoid, Right Lidocaine 4 % topical patch 1 Patch 1 Patch, Topical, DAILY, First dose on Tu03/18/25 at 0945, Until Discontinued, Routine Applied 03/18/2025 9:49 AM CDT 1 Patch Neck, Right documented in this encounter Active and Recently Administered Medications Times are shown in CDT. Scheduled Medication Order 03/16/2025 03/17/2025 03/18/2025 ketorolac (TORADOL) injection 30 mg (COMPLETED) 30 mg, IM, ONE TIME ONLY, 1 dose, On 03/18/25 at 0945, Routine 0949 (Given - Provid er: Steffany Rees RN) Lidocaine 4 % topical patch 1 Patch 1 Patch, Topical, DAILY, First dose on 03/18/25 at 0945, Until Discontinued, Routine 0949 (Applied - Prov ider: Steffany Rees RN)1003 (Due: Removed - Provider: PROVIDER, DISCHARGE PATIENT - Comment: Time automatically adjusted from order being discontinued) documented in this encounter Additional Health Concerns Assessment Noted Time PHQ-9 Depression Total Score: 3 10/01/19 23 4:46 PM CDT documented as of this encounter Care Teams Director Of Primary Relationship Specialty Start Date End Date Sally Dong MD [address] [id number] PCP - General Family Practice 04/07/22 documented as of this encounter
--- OUTSIDE RECORDS SUMMARY | 2025-03-23 21:43 | XMS_ITS | Clinical Summary ---
Author Organization [facility] Address [address] [place] [address] Care Team Providers Care Combine Mechanic Name Role Phone Sally Dong MD Primary Care Provider [phone] Allergies Active Allergy Reactions Criticality Noted Date Comments Adhesive Rash Low 02/12/2009 Codeine Nausea and Vomiting Low 02/12/2009 Duloxetine Other (See Comments) 02/24/2015 Fentanyl Hives High 11/07/2019 Fluoxetine Unknown 10/20/2018 Gabapentin Unknown,Hallucination Low 02/12/2009 Haloperidol Unknown 01/04/2022 Tardive dyskinesia Ketorolac Tromethamine Other (See Comments) Low Adverse drug reaction [place] Unknown 02/12/2009 Other reaction(s): shakey Metoclopramide Hcl [...] for Nausea/Emesis. Active naloxone (NARCAN) 4 mg/spray [facility], Non-Aerosol EMERGENCY USE ONLY: Administer 1 spray [...] for Spasm. 30 Tablet 02/21/20 25 Active cyclobenzaprine (FLEXERIL) 10 mg tablet Take 10 mg by mouth 3 times daily as needed for Spasm. Active nitrofurantoin (MACROBID) 100 mg capsule Take 1 Capsule (100 mg) by mouth 2 times daily for 5 days. 10 Capsule 03/08/20 25 025 Active Problems Problem Noted Date Diagnosed Date [...] Hematochezia 07/07/2009 10/26/2012 Personal history of MRSA (nc thicillin resistant Staphylococcus aureus) 06/27/2009 018 Overview (10/14/2020): Under the arm abscess ~ 2015 Fever and chills 02/12/2009 10/26/2012 Hypoxemia 02/12/2009 04/06/2014 Encounters Date Type Department Care Team Description 03/18/2025 8:36 AM CDT - 03/18/2025 10:03 AM CDT Emergency [facility] Emergency Medicine [address] [place] [phone] Neck pain (Primary Dx) Discharge Disposition: Home or Self Care 03/08/2025 5:56 PM CDT - 03/08/2025 9:25 PM CDT [facility] Emergency Medicine [address] [place] [phone] Anand Bower DO Flank pain (Primary Dx) Discharge Disposition: Home or Self Care 03/08/2025 Travel 03/02/2025 1:05 PM CDT - 03/02/2025 11:59 PM CDT Hospital Encounter [facility] [address] [place] [address] Ambulance, [facility] Discharge Disposition: [email or web address] 02/20/2025 8:40 PM CDT - 02/20/2025 10:04 PM CDT Emergency [facility] Emergency Medicine [address] [facility] [address] [place] [address] Tommy Matthews MD Chronic neck pain (Primary Dx) Discharge Disposition: Home or Self Care 02/20/2025 Travel 02/15/2025 4:28 PM CDT - 02/15/2025 5:10 PM CDT Emergency [facility] Medicine [address] [place] [address] Neck muscle spasm (Primary Dx) Discharge Disposition: Home or Self Care 02/11/2025 10:49 AM CDT - 02/11/2025 11:59 PM CDT Hospital Encounter [facility] [address] [place] [address] Dara Tavera FNP Discharge Disposition: Home or Self Care 02/11/2025 Orders Only [facility] Admitting [address] [facility] [address] [place] [address] Dara Tavera FNP Cervicalgia (Primary Dx) 02/09/2025 9:24 AM CDT - 02/09/2025 10:00 AM CDT Emergency [facility] Emergency Medicine [address] [place] [address] Tommy Matthews MD Cervicalgia (Primary Dx) Discharge Disposition: Home or Self Care 02/09/2025 - 02/09/2025 11:59 PM CDT Hospital Encounter [facility] [address] [place] [address] Ambulance, [facility] Discharge Disposition: [email or web address] 02/09/2025 Travel 02/01/2025 5:38 PM CDT - 02/01/2025 7:27 PM CDT Emergency [facility] Emergency Medicine [address] [place] [address] Tommy Matthews MD Abdominal pain, unspecified abdominal location (Primary Dx); Chest pain, unspecified type Discharge Disposition: Home or Self Care 02/01/2025 - 02/01/2025 11:59 PM CDT Hospital Encounter [facility] [address] [place] [address] Ambulance, [facility] Discharge Disposition: [email or web address] 02/01/2025 Travel 01/19/2025 6:21 PM CDT - 01/19/2025 7:53 PM CDT [address] [place] [address] Sanju Biggs DO Sindlinger, Timothy S, MD Flank pain (Primary Dx); Chronic pain syndrome Discharge Disposition: Home or Self Care 01/14/2025 3:31 PM CDT - 01/14/2025 6:45 PM CDT [address] [place] [address] Corinna Sarabia MD Constipation due to slow transit (Primary Dx); Excessive flatus Discharge Disposition: Home or Self Care 01/14/2025 Travel 01/05/2025 6:10 AM CDT - 01/05/2025 11:59 PM CDT Hospital Encounter [facility] [address] [place] [address] Ambulance, [facility] Discharge Disposition: [email or web address] 01/02/2025 7:39 PM CDT - 01/02/2025 7:55 PM CDT [facility] Medicine [address] [place] [address], [place] [address] Discharge Disposition: Left without being seen 12/27/2024 4:43 PM CDT - 12/27/2024 6:58 PM CDT [facility] Emergency Medicine [address] [place] [address], [place] [phone] Johnathan Andres, DO Acute right-sided low back pain with right-sided sciatica (Primary Dx) Discharge Disposition: Home or Self Care from [...] Tobacco: Some Days Cigarettes Smokeless Tobacco: Never Tobacco Cessation:Ready to [...] How often do you attend hoahaoism or yazidism serv ices? Not asked 05/05/2019 Do you [...] PM CDT Legal Sex Female 2:06 AM STRING CUTTER Gender Identity Female 03/25/2024 4:14 PM CDT [...] Mass Index 30.36 03/18/2025 8:37 AM CDT Plan of Treatment Health Maintenance [...] Associated Diagnosis Comments XR ABDOMEN 1 VW Stat 03/08/2025 8:06 PM CDT LIPASE Stat 03/08/2025 6:40 PM CDT COMPREHENSIVE METABOLIC PANEL Stat 03/08/2025 6:40 PM CDT CBC WITH DIFFERENTIAL Stat 03/08/2025 6:40 PM CDT DRUG SCREEN, URINE Stat 03/08/2025 6: 03 PM CDT URINALYSIS W/REFLEX MICROSCOPIC Stat 03/08/2025 6:03 PM CDT XR CERVICAL SPINE 2 OR 3 VIEWS [...] W/REFLEX MICROSCOPIC Stat 01/14/2025 4:08 PM CDT HEMOGLOBIN A1C Routine 06/17/2018 7:12 AM STRING CUTTER from Last 3 Months or Most Recently Relevant to Health Maintenance Results * XR ABDOMEN 1 VW (03/08/2025 8:06 PM CDT) Anatomical Region Laterality Modality Abdomen Computed Radiogr aphy 03/08/2025 8:06 PM CDT Impressions 03/08/2025 9:17 PM CDT IMPRESSION: Nonobstructive bowel gas pattern. Moderate colonic stool burden. No renal calculi identified. MACRO: None Narrative 03/08/2025 9:17 PM CDT EXAMINATION: XR ABDOMEN 1 VW CLINICAL HISTORY: ASSOCIATED DIAGNOSIS: Kidney Calculus ORDERING PROVIDER: [employer] NOTE: COMPARISON: Abdominal radiograph 09/21/2024 FINDINGS: The abdominal bowel gas pattern is nonobstructive. No dilated bowel or air-fluid levels. Moderate colonic stool burden. No visible pneumatosis or pneumoperitoneum. Right upper quadrant cholecystectomy clips. Moderate degenerative changes of the lumbar spine. Unchanged calcification over the left upper quadrant related to splenic artery calcification. Postsurgical changes of prior left inguinal hernia repair. Procedure Note Glenn Hernandez MD - 03/08/2025 EXAMINATION: XR ABDOMEN 1 VW CLINICAL HISTORY: ASSOCIATED DIAGNOSIS: Kidney Calculus ORDERING PROVIDER: [employer] NOTE: COMPARISON: Abdominal radiograph 09/21/2024 FINDINGS: The abdominal bowel gas pattern is nonobstructive. No dilated bowel or air-fluid levels. Moderate colonic stool burden. No visible pneumatosis or pneumoperitoneum. Right upper quadrant cholecystectomy clips. Moderate degenerative changes of the lumbar spine. Unchanged calcification over the left upper quadrant related to splenic artery calcification. Postsurgical changes of prior left inguinal hernia repair. IMPRESSION: Nonobstructive bowel gas pattern. Moderate colonic stool burden. No renal calculi identified. MACRO: None us Papito Leon MD DIAGNOSTIC IMAGING OR DERABLES Final Result * (ABNORMAL) CBC WITH DIFFERENTIAL (03/08/2025 6:40 PM CDT) Only the most recent of3 resultswithin the time period is included. WBC 9.0 4.0 - 10.0 K/uL 03/08/2025 6:52 PM [facility] RBC 3.77(L) 3.93 - 5.22 M/uL 03/08/2025 6:52 PM [facility] HEMOGLOBIN 12.5 11.2 - 15.7 g/dL 03/08/2025 6:52 PM [facility] HEMATOCRIT 35.5 34.1 - 44.9 % 03/08/2025 6:52 PM [facility] MCV 94.2 79.4 - 94.8 fL 03/08/2025 6:52 PM [facility] MCH 33.2(H) 25.6 - 32.2 pg 03/08/2025 6:52 PM [facility] MCHC 35.2 32.2 - 35.5 g/dL 03/08/2025 6:52 PM [facility] RDW 13.1 11.0 - 14.5 % 03/08/2025 6:52 PM [facility] RDW-STDEV 45.1 36.9 - 56.9 fL 03/08/2025 6:52 PM CDT [facility] PLATELETS 210 163 - 337 K/uL 03/08/2025 6:52 PM [facility] MPV 9.9(L) 10.0 - 14.8 fL 03/08/2025 6:52 PM [facility] NEUTROPHILS 51 34 - 71 % 03/08/2025 6:52 PM [facility] LYMPHOCYTES 35 19 - 52 % 03/08/2025 6:52 PM [facility] MONOCYTES 9 5 - 13 % 03/08/2025 6:52 PM [facility] EOSINOPHILS 4 1 - 6 % 03/08/2025 6:52 PM [facility] BASOPHILS 1 0 - 1 % 03/08/2025 6:52 PM [facility] IMMATURE GRANULOCYTES 0 % 03/08/2025 6:52 PM [facility] NEUTROPHIL ABSOLUTE 4.59 1.56 - 6.13 K/uL 03/08/2025 6:52 PM [facility] LYMPHOCYTE ABSOLUTE 3.15 1.20 - 3.40 K/uL 03/08/2025 6:52 PM [facility] MONOCYTE ABSOLUTE 0.80(H) 0.24 - 0.36 K/uL 03/08/2025 6:52 PM [facility] EOSINOPHIL ABSOLUTE 0.35 0.04 - 0.36 K/uL 03/08/2025 6:52 PM [facility] BASOPHILS ABSOLUTE 0.08 0.01 - 0.08 K/uL 03/08/2025 6:52 PM [facility] IMMATURE GRANULOCYTES ABSOLUTE 0.02 K/uL 03/08/2025 6:52 PM [facility] Blood Venipuncture / Unknown 03/08/2025 6:40 PM CDT 03/08/2025 6:45 PM CDT us Anand Bower DO HEMATOLOGY ORDERABLES Final Res ult [facility] CLIA # [id number] [address] [place] [address] * LIPASE (03/08/2025 6:40 PM CDT) Only the most recent of2 resultswithin the time period is included. Pathologist [facility] LIPASE 28 13 - 60 U/L 03/08/2025 7:40 PM [facility] Blood Venipuncture / Unknown 03/08/2025 6:40 PM CDT 03/08/2025 6:45 PM CDT us Anand Bower DO CHEMISTRY ORDERABLES Final Resu lt [facility] CLIA # [id number] [address] [place] [address] * (ABNORMAL) COMPREHENSIVE METABOLIC PANEL (03/08/2025 6:40 PM CDT) Only the most recent of3 resultswithin the time period is included. [facility] SODIUM 138 136 - 145 mmol/L 03/08/2025 7:24 PM [facility] POTASSIUM 4.1 3.5 - 5.1 mmol/L 03/08/2025 7:24 PM [facility] CHLORIDE 102 98 - 107 mmol/L 03/08/2025 7:24 PM [facility] CO2 23 22 - 29 mmol/L 03/08/2025 7:24 PM [facility] CALCIUM 9.7 8.6 - 10.0 mg/dL 03/08/2025 7:24 PM [facility] BUN 22(H) 6 - 20 mg/dL 03/08/2025 7:24 PM [facility] CREATININE 1.05(H) 0.51 - 0.95 mg/dL 03/08/2025 7:24 PM [facility] GLUCOSE 112(H) 74 - 99 mg/dL 03/08/2025 7:24 PM [facility] TOTAL PROTEIN 6.5(L) 6.6 - 8.7 g/dL 03/08/2025 7:24 PM [facility] ALBUMIN 4.3 3.5 - 5.2 g/dL 03/08/2025 7:24 PM [facility] BILIRUBIN TOTAL 0.2 0.0 - 1.2 mg/dL 03/08/2025 7:24 PM [facility] ALKALINE PHOSPHATASE 118(H) 35 - 104 U/L 03/08/2025 7:24 PM [facility] AST 16 0 - 35 U/L 03/08/2025 7:24 PM [facility] ALT 11 0 - 35 U/L 03/08/2025 7:24 PM [facility] GFR >60 >=60 mL/min/1.7 3 sq meter 03/08/2025 7:24 PM [facility] Comment:eGFR calculated with 2020 CKD-EPI equation. Vegetarian diet, extremely high or low muscle mass, and may affect results. Cystatin C with Glomerular Filtration Rate is a suitable alternative for these patients. ANION GAP 13 5 - 20 mmol/L 03/08/2025 7:24 PM [facility] Blood Venipuncture / Unknown 03/08/2025 6:40 PM CDT 03/08/2025 6:45 PM CDT us Anand Bower DO CHEMISTRY ORDERABLES [id number] [address] [place] [address] * (ABNORMAL) DRUG SCREEN, URINE (03/08/2025 6:03 PM CDT) CANNABINOIDS QUAL, URINE Negative Negative 03/08/2025 6:33 PM CDT [facility] PCP QUAL, URINE Negative Negative 6:33 PM CDT [facility] COCAINE QUAL URINE Negative Negative 2024 6:33 PM CDT [facility] METHAMPHETAMINE QUAL, URINE Negative Negative 03/08/2025 6:33 PM CDT [facility] OPIATE QUAL, URINE Presumptive Positive(A) Negative 03/08/2025 6:33 PM CDT [facility] AMPHETAMINE QUAL, URINE Negative Negative 03/08/2025 6:33 PM CDT [facility] BENZODIAZEPINE QUAL, URINE Presumptive Positive(A) Negative 03/08/2025 6:33 PM CDT [facility] TRICYCLICS QUAL, URINE Presumptive Positive(A) Negative 03/08/2025 6:33 PM CDT [facility] METHADONE QUAL, URINE Negative Negative 03/08/2025 6:33 PM CDT [facility] BARBITURATE QUAL, URINE Negative Negative 03/08/2025 6:33 PM CDT [facility] OXYCODONE QUAL, URINE Negative Negative 03/08/2025 6:33 PM CDT [facility] Urine URINE SPECIMEN OBTAINED BY CLEAN CATCH PROCEDURE / Unknown Collection / Unknown 03/08/2025 6:03 PM CDT 03/08/2025 6:17 PM CDT Narrative [facility] - 03/08/2025 6:33 PM CDT This test is a qualitative screen. The presumptive positive results should not be used for legal purposes. If confirmation of results is desired, the lab must be contacted without delay. Drug Screening Threshold Amphetamines 500 ng/mL Barbiturates 200 ng/mL Benzodiazepines 150 ng/mL Cocaine Metabolites 150 ng/mL Methamphetamine 500 ng/mL Methadone 200 ng/mL Opiates 100 ng/mL Oxycodone 100 ng/mL Phencyclidine 25 ng/mL THC Cannabinoids 50 ng/mL Tricyclic Antidepressants 300 ng/mL us Anand Bower DO URINE ORDERABLES Final Result [facility] CLIA # [id number] [address] [place] [address] * (ABNORMAL) URINALYSIS WITH REFLEX MICROSCOPIC (03/08/2025 6:03 PM CDT) Only the most recent of2 resultswithin the time period is included. COLOR UA Yellow Pale to Dark Yellow 03/08/2025 6:20 PM CDT [facility] CLARITY UA Clear Clear 03/08/2025 6:20 PM CDT [facility] SPECIFIC GRAVITY UA 1.010 1.003 - 1.035 03/08/2025 6:20 PM CDT [facility] PH UA 7.0 5.0 - 8.0 03/08/2025 6:20 PM CDT [facility] LEUKOCYTE ESTERASE UA Trace(A) Negative 03/08/2025 6:20 PM CDT [facility] NITRITE UA Negative Negative 03/08/2025 6:20 PM CDT [facility] PROTEIN UA Negative Negative 03/08/2025 6:20 PM CDT [facility] GLUCOSE UA Negative Negative 03/08/2025 6:20 PM CDT [facility] KETONES UA Negative Negative 03/08/2025 6:20 PM CDT [facility] UROBILINOGEN UA 0.2 <2.0 mg/dL 6:20 PM CDT [facility] BILIRUBIN UA Negative Negative 03/08/2025 6:20 PM CDT [facility] BLOOD UA Negative Negative 03/08/2025 6:20 PM CDT [facility] Urine URINE SPECIMEN OBTAINED BY CLEAN CATCH PROCEDURE / Unknown Collection / Unknown 03/08/2025 6:03 PM CDT 03/08/2025 6:17 PM CDT Anand Bower DO URINE ORDERABLES Final Result [facility] CLIA # [id number] [address] [place] [address] * XR CERVICAL SPINE 2 OR 3 [...] relationship is identified. Impression: 1. As above. Dara Tavera HITTING COACH DIAGNOSTIC IMAGING ORDERABL ES Final Result * [...] 6 <=10 ng/L 02/01/2025 6:42 PM CDT [facility] Blood Venipuncture / Unknown 02/01/2025 5:53 PM CDT 02/01/2025 6:24 PM CDT Narrative [facility] - 02/01/2025 6:42 PM CDT Troponin Detectable but normal range. Tommy Matthews MD CHEMISTRY ORDERABLES Fin al Result [facility] CLIA # [id number] [address] [place] [address] * (ABNORMAL) BRAIN NATRIURETIC PEPTIDE, BNP OR PROBNP (02/01/2025 5:53 PM CDT) PROBNP, N TERMINAL 260(H) 0 - 125 pg/mL 02/01/2025 6:42 PM CDT [facility] Comment: INTERPRETIVE COMMENT based on diagnosis: Diagnostic [...] Matthews MD CHEMISTRY ORDERABLES Fin al Result [id number] [address] [place] [address] * CT ABDOMEN PELVIS WO CONTRAST (01/19/2025 [...] There is no significant listhesis. Procedure Note Mandi, Rizwan Ann, MD - 01/19/2025 EXAMINATION: CT ABDOMEN PELVIS [...] Consistent w Count 01/19/2025 7:01 PM CDT [facility] RBC MORPHOLOGY Normal 01/19/2025 7:01 PM CDT [facility] Blood Venipuncture / Unknown 01/19/2025 6:37 PM CDT 01/19/2025 6:48 PM CDT Sanju Biggs DO HEMATOLOGY ORDERABLES COM Fin al Result [facility] CLIA # [id number] [address] [place] [address] * (ABNORMAL) C-REACTIVE PROTEIN (01/19/2025 6:37 PM CDT) CRP 28.8(H) <5.0 mg/L 01/19/2025 7:05 PM CDT [facility] Blood Venipuncture / Unknown 01/19/2025 6:37 PM CDT 01/19/2025 6:48 PM CDT us Sanju Biggs DO CHEMISTRY ORDERABLES Final Re sult Performing Organization Address City/[facility]/ZIP Co de Phone Number [facility] CLIA # [id number] [address] [place] [address] * AMYLASE (01/19/2025 6:37 PM CDT) Pathologist [facility] AMYLASE 33 28 - 100 U/L 01/19/2025 7:05 PM CDT [facility] Blood Venipuncture / Unknown 01/19/2025 6:37 PM CDT 01/19/2025 6:48 PM CDT us Sanju Biggs DO CHEMISTRY ORDERABLES Final Re sult [facility] CLIA # [id number] [address] [place] [address] * HEMOGLOBIN A1C (06/17/2018 7:12 AM STRING CUTTER) HEMOGLOBIN A1C 5.2 4.8 - 5.9 % 06/17/2018 9:37 AM STRING CUTTER [facility] EST. AVG GLUCOSE, A1C 103 mg/dL 06/17/2018 9:37 AM STRING CUTTER [facility] Blood Venipuncture / Unknown 06/17/2018 7:12 AM STRING CUTTER 06/17/2018 7:13 AM STRING CUTTER Narrative [facility] - 06/17/2018 9:37 AM STRING CUTTER If not available from last three months. HGB A1C INTERPRETATION NORMAL: <5.7% PRE-DIABETES: 5.7 - 6.4% DIABETES: 6.5% OR GREATER Benedicto Mcgill MD CHEMISTRY ORDERABLES Final Result [facility] CLIA # [id number] [address] [place], [place] [id number] [facility] CLIA # [id number] [address] [place], [place] [address] from Last 3 Months or Most Recently Relevant to Health Maintenance Insurance [place] D[place] COMPLETE HMO [facility] [id number] [place] Advance Directives For more information, please contact: [phone] Documents on File Type Date Recorded Patient Utilities And Maintenance Supervisor Expl anation Advance Directive POA 02/23/2024 3:51 [...] 1:52 AM 10/27/2021 2:07 PM Care Teams Combine Mechanic Relationship Specialty Start Date End Date Sally Dong MD [address] [id number] PCP - General Family Practice 04/07/22
[2025-03-23 21:44] VITALS: BP 108/63; PULSE 76; RESP 16; TEMP 36.5; O2SAT 98; BMI 28.9
[2025-03-23 23:31] VITALS: BP 108/45; PULSE 68; RESP 16; O2SAT 96
[2025-03-23 23:55] LABS: Glucose Urine UA Norm (Normal); Nitrate Urine Negative (Negative); Specific Gravity, Urine 1.010 (1.005-1.030)
--- NOTE | 2025-03-24 00:02 | W.ED.ABDPA2 ---
HPI - Abdominal Pain General: Chief Complaint: Abdominal Pain Stated Complaint: ABD PAIN Time Seen by Provider: 03/23/25 23:17 History of Present Illness: Patient is a 59-year-old female well-known to the emergency department service. She is presenting with right flank pain that started approximately at 4-5 PM today. The pain is severe, intermittent initially but now more persistent, and radiates down to the lower right abdomen. The patient reports associated nausea and vomiting. She has a history of kidney [place] [facility] [place] a kidney stone that was reportedly deep in the kidney. She subsequently had another episode a month or two later, at which time another CT scan showed multiple kidney stones. The patient took a 5mg hydrocodone at home prior to arrival with no relief of symptoms. She denies hematuria, though notes that previous urinalyses at [place] did reveal microscopic hematuria. The patient reports that her current symptoms are consistent with what she was told would indicate stone movement, including pain radiation to the lower abdomen. Related Data Home Medications ?Medication ?Instructions ?Recorded ?Confirmed acetaminophen 500 mg tablet 1,000 mg PO Q6H PRN Pain 07/09/21 03/03/25 pantoprazole 40 mg tablet,delayed 40 mg PO BID 07/27/23 03/03/25 release ondansetron HCl 4 mg tablet 4 mg PO Q8H 01/22/24 03/03/25 prednisolone acetate 1 % eye drp ophthalmic (eye) 05/10/24 03/03/25 drops,suspension dicyclomine 10 mg capsule 10 mg PO BID PRN 05/27/24 03/03/25 sucralfate 1 gram tablet (Carafate) 1 g PO QID 05/27/24 03/03/25 famotidine 20 mg tablet mg PO 09/23/24 03/03/25 lubiprostone 24 mcg capsule mcg PO 09/23/24 03/03/25 Previous Rx's ?Medication ?Instructions ?Recorded nystatin 100,000 unit/gram topical 1 applic topical BID #30 grams 06/16/22 powder SOLE Supports #1 ea 01/01/24 fluticasone propionate 50 1 spray intranasal DAILY PRN nasal 05/10/24 mcg/actuation nasal congestion 30 days #16 grams spray,suspension (Flonase Allergy Relief) Rollator Walker #1 ea 09/06/24 promethazine 25 mg tablet 12.5 - 25 mg (0.5 - 1 x 25 mg) PO 10/05/24 Q6H PRN nausea and vomiting #10 tabs albuterol sulfate 90 mcg/actuation See Rx Instructions .Route 11/22/24 aerosol inhaler .COMPLEX #9 grams cholecalciferol (vitamin D3) 1,250 1,250 mcg PO .once a week 90 days 12/16/24 mcg (50,000 unit) capsule #12 caps lamotrigine 200 mg tablet 200 mg PO DAILY@06 #30 tabs 02/04/25 trazodone 300 mg tablet 300 mg PO .q hs PRN sleep #30 tabs 02/04/25 vortioxetine 20 mg tablet 20 mg PO .q am #30 tabs 02/04/25 (Trintellix) vortioxetine 5 mg tablet 5 mg PO DAILY #30 tabs 02/04/25 cyclobenzaprine 10 mg tablet 10 mg PO TID PRN muscle spasm #90 02/25/25 tabs quetiapine 25 mg tablet See Rx Instructions PO .COMPLEX 03/19/25 anxiety and agitation #150 tabs Allergies Allergy/AdvReac Type Severity Reaction Status Date / Time haloperidol (From Haldol) Allergy Severe unknown Verified 03/03/25 13:14 Penicillins Allergy Severe ALGY-Anaphy Verified 03/03/25 13:14 laxis sulfamethoxazole (From Allergy Severe ALGY-Hives Verified 03/03/25 13:14 Bactrim) Tetracyclines Allergy Severe ALGY-Hives Verified 03/03/25 13:14 gabapentin (From Neurontin) Allergy Intermediate ADR-Halluci Verified 03/03/25 13:14 nating ketorolac (From Toradol) Allergy Intermediate ALGY-Rash Verified 03/03/25 13:14 lithium Allergy Intermediate ADR-Halluci Verified 03/03/25 13:14 nating fentanyl Allergy Mild rash Verified 03/03/25 13:14 adhesive tape Allergy Rash Verified 03/03/25 13:14 codeine Allergy GI Verified 03/03/25 13:14 duloxetine (From Cymbalta) Allergy ALGY-Rash Verified 03/03/25 13:14 fluoxetine Allergy ADR-Migrain Verified 03/03/25 13:14 e metoclopramide (From Reglan) Allergy ADR-Shakine Verified 03/03/25 13:14 ss nitroglycerin Allergy ADV-Weaknes Verified 03/03/25 13:14 s tramadol Allergy Unknown Verified 03/03/25 13:14 trimethoprim (From Bactrim) Allergy ALGY-Hives Verified 03/03/25 13:14 ziprasidone (From Geodon) AdvReac Severe ADR-Halluci Verified 03/03/25 13:14 nating risperidone (From Risperdal) AdvReac ADR-Halluci Verified 03/03/25 13:14 nating PFS ED PFSH: Medical History (Updated 03/24/25 @ 01:19 by Chivo Deleon DO) Chronic gastritis without bleeding Insomnia Tobacco use disorder Opioid dependence, uncomplicated Cannabis dependence, uncomplicated Psychiatric care Tardive dyskinesia Esophageal stricture Cystitis cystica Restrictive lung disease Chronic back pain greater than 3 months duration Borderline personality disorder Schizoaffective disorder, bipolar type Urgency incontinence Neurogenic bladder Dysphagia COPD (chronic obstructive pulmonary disease) GERD without esophagitis Foreign body in bladder Bladder stone Chronic anxiety Surgical History H/O bladder repair surgery MESH REPAIR H/O esophagogastroduodenoscopy (09/21/20) H/O colonoscopy with polypectomy History of foot surgery sx in 2009. Screws placed by Dr. Don. S/P bronchoscopy with biopsy History of ureter stent History of breast biopsy Hx of cholecystectomy H/O: hysterectomy History of appendectomy Family History Mother No problems noted. Father No problems noted. Other Asthma Cancer Diabetes Heart disease Social History Smoking and tobacco/nicotine status: never used tobacco/nicotine Quit status (tobacco/nicotine): considering quitting Second hand smoke exposure: Yes Alcohol intake: never Substance/Drug Use: former Lives independently: Yes Household members: spouse Marital status: Number of children: 3 Current occupational status: disabled Do you think of yourself as: Straight/Heterosexual Current gender identity: Female Physical Exam Const: COMMON NORMALS: no acute distress GENERAL APPEARANCE: cooperative; not ill appearing and not frail appearing HENMT: COMMON NORMALS: normocephalic, atraumatic and Normal external nose present HEAD & SCALP: normocephalic and atraumatic FACE & SINUS: normal facial exam and face symmetric NOSE: Normal external nose present Eye: COMMON NORMALS: Equal, round and reactive pupils present and EOMs intact bilaterally PUPIL: Yes Equal, round and reactive pupils present Neck/C-Spine: GENERAL: Yes trachea midline Chest: CHEST: Yes Symmetrical chest wall rise Resp: COMMON NORMALS: normal respiratory effort, No retractions, No use of accessory muscles and clear to auscultation bilaterally AUSCULTATION: clear to auscultation bilaterally Cardio: COMMON NORMALS: regular rate and regular rhythm RATE: regular rate RHYTHM: regular rhythm GI: COMMON NORMALS: Normal to inspection, nondistended, normoactive bowel sounds present PALPATION: Yes Tenderness to palpation present (GI) Details: RLQ : BLADDER/KIDNEY EXAM: Yes CVA tenderness on the right Back/Pelvis: GENERAL BACK: Yes CVA tenderness Extremity: COMMON NORMALS: no pedal edema Neuro: JEANINE COMA SCALE: document GCS findings Jeanine coma scale eye opening: Spontaneous Jeanine coma scale verbal response: Orientated [place] coma scale motor response: [place]bey commands Jeanine coma scale total score: 15 SENSORY EXAM: Yes extremities (intact) Psych: COMMON NORMALS: speech normal SPEECH: Yes normal speech Skin: COMMON NORMALS: no rashes or lesions noted GENERAL SKIN EXAM: no rashes or lesions noted Course Vital Signs: Vital signs: Vital Signs Temperature 97.7 F 03/23/25 21:44 Pulse Rate 70 03/24/25 01:23 Respiratory Rate 16 03/24/25 01:23 Blood Pressure 115/59 03/24/25 01:23 Pulse Oximetry 97 03/24/25 01:23 Oxygen Delivery Me thod Room Air 03/23/25 23:31 MDM - Abdominal Pain Medical Decision Making No hematuria on micro exam. She is afebrile. Vitals are normal. White blood cell count is 15.6 which is improved from prior. Creatinine is 1. Other laboratory markers are not remarkable. She is improved after Dilaudid, Zofran, Compazine. She is ready for discharge. She is given a fluid bolus as well Lab Data 03/23/25 23:59 03/23/25 23:59 Labs/Radiology: Laboratory Results WBC 15.58 10^3/uL (3.29-11.43) H 03/23/25 23:59 RBC 3.65 10^6/uL (3.85-5.65) L 03/23/25 23:59 Hgb 12.10 g/dL (11.27-16.99) 03/23/25 23:59 Hct 36.0 % (36-47) 03/23/25 23:59 MCV 98.6 fl (85-98) H 03/23/25 23:59 MCH 33.2 pg (27-33) H 03/23/25 23:59 MCHC 33.6 g/dL (30-55) 03/23/25 23:59 RDW 12.9 % (12.1-15.1) 03/23/25 23:59 Plt Count 192 10^3/cmm (157-399) 03/23/25 23:59 MPV 9.8 fL (7.4-10.4) 03/23/25 23:59 Neut % (Auto) 73.6 % 03/23/25 23:59 Lymph % (Auto) 18.2 % 03/23/25 23:59 [place] % (Auto) 5.9 % 03/23/25 23:59 Eos % (Auto) 1.5 % 03/23/25 23:59 Baso % (Auto) 0.4 % 03/23/25 23:59 Neut # (Auto) 11.47 10^3/uL (1.8-7.7) H 03/23/25 23:59 Lymph # (Auto) 2.8 10^3/uL (0.8-4.8) 03/23/25 23:59 [place] # (Auto) 0.9 10^3/uL (0.2-0.9) 03/23/25 23:59 Eos # (Auto) 0.2 10^3/uL (0.0-0.8) 03/23/25 23:59 Baso # (Auto) 0.1 10^3/uL (0.0-0.1) 03/23/25 23:59 Nucleated RBC % (auto) 0 % 03/23/25 23:59 Nucleated RBCs # 0.0 /100WBC 03/23/25 23:59 Sodium 136 mmol/L (136-145) 03/23/25 23:59 Potassium 3.7 mmol/L (3.5-5.1) 03/23/25 23:59 Chloride 101 mmol/L (98-107) 03/23/25 23:59 Carbon Dioxide 24 mmol/L (22-29) 03/23/25 23:59 Anion Gap 14.7 (5-19) 03/23/25 23:59 BUN 16 mg/dL (6-20) 03/23/25 23:59 Creatinine 1.0 mg/dL (0.5-0.9) H 03/23/25 23:59 GFR Calculation 57.1 mL/min (90-130) L 03/23/25 23:59 Glucose 82 mg/dL (65-115) 03/23/25 23:59 Calculated Osmolality 282 mOsm/kg (285-295) L 03/23/25 23:59 Calcium 9.6 mg/dL (8.5-10.5) 03/23/25 23:59 Total Bilirubin 0.3 mg/dL (0.15-1.2) 03/23/25 23:59 AST 15 U/L (0-32) 03/23/25 23:59 ALT 10 U/L (0-33) 03/23/25 23:59 Alkaline Phosphatase 112 U/L (35-105) H 03/23/25 23:59 C-Reactive Protein 12.2 mg/L (0.0-4.9) H 03/23/25 23:59 Total Protein 6.9 g/dL (6.6-8.7) 03/23/25 23:59 Albumin 4.1 g/dL (3.5-5.2) 03/23/25 23:59 Globulin 2.8 g/dL (1.3-4.6) 03/23/25 23:59 Lipase 19 U/L (13-60) 03/23/25 23:59 Urine Color Yellow (Yellow) 03/23/25 22:57 Urine Appearance Clear (CLEAR) 03/23/25 22:57 Urine pH 6 (5-7) 03/23/25 22:57 Ur Specific [place] 1.010 (1.005-1.030) 03/23/25 22:57 Urine Protein Neg (Negative) 03/23/25 22:57 Urine Glucose (UA) Norm (Normal) 03/23/25 22:57 Urine Ketones Negative (Negative) 03/23/25 22:57 Urine Blood Neg (Negative) 03/23/25 22:57 Urine Nitrate Negative (Negative) 03/23/25 22:57 Urine Bilirubin Neg (Negative) 03/23/25 22:57 Urine Urobilinogen Norm mg/dL (Negative) 03/23/25 22:57 Ur Leukocyte Esterase Trace (Negative) H 03/23/25 22:57 Urine RBC 0-2 /hpf (0-2) 03/23/25 22:57 Urine WBC 0-4 /hpf (0-5) H 03/23/25 22:57 Ur Squamous Epith Cells 0-2 /hpf (0-5) 03/23/25 22:57 Amorphous Sediment Not Reportable 03/23/25 22:57 Urine Bacteria None /hpf (NONE) 03/23/25 22:57 No radiology studies performed this visit Discharge Plan Discharge Patient Disposition: Home Clinical Impression: Abdominal pain Condition: Stable Prescriptions: No Action pantoprazole 40 mg tablet,delayed release (DR/EC) 40 mg PO BID (DME) SOLE Supports See Rx Instructions .Route .MEDSUPPLY Qty: 1 0RF Rx Instructions: As directed PRE-Auth prednisolone acetate 1 % drops,suspension ophthalmic (eye) fluticasone propionate [Flonase Allergy Relief] 50 mcg/actuation spray,suspension 1 spray intranasal DAILY PRN (Reason: nasal congestion) 30 Days Qty: 16 2RF Rx Instructions: administer into each nostril dicyclomine 10 mg capsule 10 mg PO BID PRN famotidine 20 mg tablet PO lubiprostone 24 mcg capsule PO vortioxetine 5 mg tablet 5 mg PO DAILY Qty: 30 1RF Rx Instructions: Take one tablet daily with the 20 mg dose Trintellix 20 mg tablet 20 mg PO .q am Qty: 30 1RF Rx Instructions: Take one tablet once daily trazodone 300 mg tablet 300 mg PO .q hs PRN (Reason: sleep) Qty: 30 1RF Rx Instructions: Take one tablet daily at bedtime, if needed for sleep lamotrigine 200 mg tablet 200 mg PO DAILY@06 Qty: 30 1RF Rx Instructions: Take one tablet by mouth every morning ondansetron HCl 4 mg tablet 4 mg PO Q8H sucralfate [Carafate] 1 gram tablet 1 g PO QID cyclobenzaprine 10 mg tablet 10 mg PO TID PRN (Reason: muscle spasm) Qty: 90 0RF nystatin 100,000 unit/gram powder 1 applic topical BID Qty: 30 0RF Rx Instructions: apply locally to B/L groin folds (DME) Rollator Walker See Rx Instructions .Route .MEDSUPPLY Qty: 1 0RF Rx Instructions: As directed HOME: Length of need 4 months albuterol sulfate 90 mcg/actuation HFA aerosol inhaler See Rx Instructions .ROUTE .COMPLEX Qty: 9 0RF Dose Instruction: INHALE 2 PUFFS BY MOUTH EVERY 6 HOURS NEEDED FOR SHORTNESS OF BREATH OR WHEEZING Rx Instructions: INHALE 2 PUFFS BY MOUTH EVERY 6 HOURS NEEDED FOR SHORTNESS OF BREATH OR WHEEZING cholecalciferol (vitamin D3) 1,250 mcg (50,000 unit) capsule 1,250 mcg PO .once a week 90 Days Qty: 12 0RF quetiapine 25 mg tablet See Rx Instructions PO .COMPLEX Qty: 150 1RF Rx Instructions: Take 1 tablet every AM, and 2 at bedtime; may take 1 additional tablet twice during the daytime, if needed for anxiety and agitation acetaminophen 500 mg Tablet 1,000 mg PO Q6H PRN (Reason: Pain) promethazine 25 mg tablet 12.5 - 25 mg PO Q6H PRN (Reason: nausea and vomiting) Qty: 10 0RF Rx Instructions: 4 doses during day; last dose no later than 4 hr before bedtime Discharge Orders: Discharge ED (Routine); Ordered 03/24/25 Ordered By: Chivo Deleon Referrals: Dara Tavera, [employer]PER[employer]OR [Primary Care Provider, Family Practice] - 1-3 days Patient Instructions: Abdominal Pain (ED), Opioid Safety, Pain Management, Patient Portal & [place] Instructions Activity Restrictions/Additional Instructions: Call your doctor in the morning for a follow-up appointment. Return for fever, vomiting liquids, other concerning symptoms. Print Language: Turkmen Coding Level of Care Code ED Rn Perioperative for Shellie Guallpa
[2025-03-24 00:09] LABS: Add Urine Microscopic? YES; UA Manual Slide Review YES
[2025-03-24 00:15] LABS: Hematocrit 36.0 % (36-47); Hemoglobin 12.10 g/dL (11.27-16.99); Mean Corpuscular HGB Conc 33.6 g/dL (30-55); Mean Corpuscular Hemoglobin 33.2 pg (27-33); Mean Corpuscular Volume 98.6 fl (85-98); Nucleated Red Blood Cells % 0 %; Platelet Count 192 10^3/cmm (157-399); Red Blood Count 3.65 10^6/uL (3.85-5.65); White Blood Count 15.58 10^3/uL (3.29-11.43)
[2025-03-24] MEDS: ondansetron 2 mg/ML SDV 2 mL 4 MG IVP (00:17)
[2025-03-24] MEDS: HYDROmorphone 0.5 MG/0.5 ML INJ 1 MG IVP (00:18)
[2025-03-24 00:25] LABS: Alanine Aminotransferase 10 U/L (0-33); Albumin Level 4.1 g/dL (3.5-5.2); Alkaline Phosphatase 112 U/L (35-105); Anion Gap 14.7 (5-19); Aspartate Amino Transferase 15 U/L (0-32); Blood Urea Nitrogen 16 mg/dL (6-20); Calcium 9.6 mg/dL (8.5-10.5); Carbon Dioxide 24 mmol/L (22-29); Chloride 101 mmol/L (98-107); Globulin 2.8 g/dL (1.3-4.6); Glucose 82 mg/dL (65-115); Lipase 19 U/L (13-60); Osmolality Calculated 282 mOsm/kg (285-295); Potassium 3.7 mmol/L (3.5-5.1); Sodium 136 mmol/L (136-145); Total Protein 6.9 g/dL (6.6-8.7)
[2025-03-24 00:30] LABS: Creatinine Clr Calc Pharmacy 57.5445
[2025-03-24 01:23] VITALS: BP 115/59; PULSE 70; RESP 16; O2SAT 97
== END 2025-03-24 01:24 | disposition home or self-care (01) ==
PROVIDERS: Emergency Provider Emergency Medicine; PCP Registered Nurse
DX: R10.9 Unspecified abdominal pain (principal); J44.9 Chronic obstructive pulmonary disease, unspecified
CPT/HCPCS: 80053; 81001; 81003; 83690; 85025; 86140; 96361; 96374; 96375; 99284; J0780; J1171; J2405; J7040

== ENCOUNTER 2025-04-01 07:33 | Outpatient (CLI) | payer OTHER, MEDICAID, SELFPAY ==
--- NOTE | 2025-04-01 07:36 | CT_ITS ---
WS: [id number] LDCT LUNG CANCER SCREENING HISTORY: Z87.891 - Personal history of nicotine dependence TECHNIQUE: Axial imaging performed from the apices to 1 cm below the costophrenic angles. Coronal and sagittal reformats are submitted with axial MIP series. [facility] CT scans at [facility] use at least one of these dose optimization techniques: automated exposure control; mA and/or kV adjustment per patient size (includes targeted exams where dose is matched to clinical indication); or iterative reconstruction. DLP: 53.30 mGy.cm DIvol: Mean CTDIvol: 1.00 (mGy) COMPARISON: 03/04/2024 Diagnostic quality: Satisfactory Lungs: Marked pulmonary hyperinflation. Diffuse mild hazy, groundglass attenuation throughout both lungs. There are a few scattered micronodules which are not increasing in size. Small cluster of nodules in the anterior RIGHT upper lobe. No new or enlarging pulmonary mass. 3 mm subpleural nodule in the anterior RIGHT upper lobe is stable. Mild bronchiectasis anterior LEFT upper lobe. Heart: Normal size heart with no pericardial effusion.. Other findings: Mild pulmonary artery dilatation. Very minimal atherosclerosis aorta. Calcified 8 mm LEFT thyroid nodule. Small hiatal hernia. No adrenal mass. Prior cholecystectomy. CT/CT lung screening [id number] IMPRESSION: LUNG-RADS: 2-Benign Appearance or Behavior FOLLOW UP: 12 Month: Continue annual screening with LDCT OTHER FINDINGS (S MODIFIER): None.
== END 2025-04-01 07:34 | disposition home or self-care (01) ==
LOC: RAD 07:34
PROVIDERS: PCP Registered Nurse; Visit Provider Registered Nurse
DX: Z12.2 Encounter for screening for malignant neoplasm of respiratory organs (principal); Z87.891 Personal history of nicotine dependence; J98.4 Other disorders of lung; J47.9 Bronchiectasis, uncomplicated; I70.0 Atherosclerosis of aorta; K44.9 Diaphragmatic hernia without obstruction or gangrene; I28.8 Other diseases of pulmonary vessels; Z90.49 Acquired absence of other specified parts of digestive tract
CPT/HCPCS: 71271

== ENCOUNTER → 2025-04-14 09:54 | Outpatient (BNVA) | payer OTHER, SELFPAY | PROVIDERS: PCP Registered Nurse; Visit Provider Nurse Practitioner Family | DX: M54.2 Cervicalgia (principal); M54.9 Dorsalgia, unspecified | CPT/HCPCS: 99214 ==

== ENCOUNTER 2025-04-20 21:03 | Emergency (ER) | payer OTHER, SELFPAY ==
--- OUTSIDE RECORDS SUMMARY | 2025-04-19 19:27 | XMS_ITS | Encounter Summary ---
Author Organization [facility] Address [address] [place] [address] Care Team Providers Care Scourer Name Role Phone Sally Dong MD Primary Care Provider [phone] Reason for Visit * Reason Comments Shoulder Injury right Back Pain Encounter Details Date Type Department Care Team (Late st Contact Info) Description 04/19/2025 8:27 PM CDT - 04/19/2025 9:59 PM CDT Emergency [facility] Emergency Medicine [address] [place], [place] [address]Y [address] [place] [phone] Tommy Matthews MD [address] [place] [address] [place] [address] Sprain of right shoulder, unspecified shoulder sprain type, initial encounter (Primary Dx) Discharge Disposition: Home [...] asked 05/05/2019 How often do you attend anabaptism or denominational serv ices? Not asked 05/05/2019 Do you belong to any clubs o r organizations such as anabaptism groups, unions, fraternal or athletic groups, or school groups? Not asked 05/05/2019 How often do you attend meet ings of the clubs or organizations you belong to? Not asked 05/05/2019 Are you , , di vorced, , never , or living with a partner? Not asked 05/05/2019 Food Insecurity Answer Date Recorded Do you find you are eating l ess than you should because you can t pay for food? No 04/19/2025 Transportation Needs Answer Date Record ed Have you gone without health care because you didn t have a way to get there? Or worry about transportation for future doctor visits, turkey picker medication, etc.? No 2024 Housing Stability Answer Date Recorded Do you worry you won t have a steady place to sleep or struggle to pay rent or mortgage? No 04/19/2025 Utility Needs Answer Date Recorded Do you have difficulty payin g for utility costs (electric, water or gas bills)? No 04/19/2025 Medication Needs Answer Date Recorded Have you skipped taking medi cation due to cost or worry you can t afford new medications? No 04/19/2025 Feeling Safe Answer Date Recorded Are you in a relationship wi th someone who hurts you emotionally and/or physically? No 04/19/2025 Food Insecurity Answer Date Recorded Social/Environmental Concerns No concerns Transportation Needs Answer Date Record ed Social/Environmental Concerns No concerns Housing Stability Answer Date Recorded Social/Environmental Concerns No concerns Utility Needs Answer Date Recorded Social/Environmental Concerns No concerns Comments No Sex and Gender Information Value Date Recorded Sex Assigned at Female 03/25/2024 4:14 PM CDT Legal Sex Female 2:06 AM CAD ADMINISTRATOR Gender Identity Female 03/25/2024 4:14 PM CDT Sexual Orientation Not on file documented as of this encounter Last Filed Vital Signs Vital Sign Reading Time Taken Comments Blood Pressure 94/61 04/19/2025 9:30 PM CDT Pulse 72 04/19/2025 9:30 PM CDT Temperature 36.6 C (97.8 F) 04/19/2025 8:34 PM CDT Respiratory Rate 18 04/19/2025 9:30 PM CDT Oxygen Saturation 93% 04/19/2025 9:30 PM CDT Inhaled Oxygen Concentration - - Weight 76.2 kg (168 lb) 04/19/2025 8:34 PM CDT Height 157.5 cm (5' 2 ) 04/19/2025 8:34 PM CDT Body Mass Index 30.73 04/19/2025 8:34 PM CDT documented in this encounter Discharge Instructions * Attachments The following attachments cannot be sent through Care Everywhere. * Shoulder Sprain (Greek) documented in this encounter Medications at Time of Discharge cyclobenzaprine (FLEXERIL) 10 mg tablet Take 10 mg by mouth 3 times daily as needed for Spasm. tiZANidine (ZANAFLEX) 2 mg Tablet Take 1 [...] 30 Tablet 12/19/2024 naloxone (NARCAN) 4 mg/spray [place], Non-Aerosol EMERGENCY USE ONLY: Administer 1 spray [...] as of this encounter ED Notes * Tommy Matthews MD - 04/19/2025 8:22 PM CDT HISTORY OF PRESENT ILLNESS Latesha Wilhelm, a 59 y.o. female presents to the ED with a Chief Complaint of Shoulder Injury andBack Pain Subjective This patient is a 59-year-old white female who presents to the emergency department complaining of right shoulder pain and low back pain. Patient states she fell while hanging curtains this evening. I know this patient well. She presents very frequently, several times per week, for chronic pain. REVIEW OF SYSTEMS Review of Systems Musculoskeletal: Right shoulder pain and low back pain. All other systems reviewed and are negative. PAST MEDICAL HISTORY REVIEWED MEDICAL: Patient has a past medical history of Acute cystitis, Ankle fracture, left, Anxiety, Arthritis, Asthma, Atrial fibrillation (CMS/HCC), Avascular necrosis ([facility]/HCC), Bipolar disorder, Bladder stones, Bronchitis, Calculus of kidney, Cannabinoid hyperemesis syndrome, Clostridium difficile enterocolitis, Colitis, Community acquired pneumonia, Congestive heart failure (02/17/2022), COPD (chronic obstructive pulmonary disease), Depression, Diverticulitis, Drug- seeking behavior, Flank pain, Flu, Gastritis, Gastroparesis, GERD (gastroesophageal reflux disease), Hematuria, HTN (hypertension), Hyperlipi demia, Hypotension, IBS (irritable bowel syndrome) (07/21/2020), IBS (irritable bowel syndrome), Influenza, Migraines, MRSA (methicillin resistant staph aureus) culture positive, MRSA (methicillin resistant Staphylococcus aureus), Pneumonia, PTSD (post-traumatic stress disorder) (04/29/2013), Rectal bleeding, Respiratory failure ([facility]), Schizoaffective disorder ([facility]), Seizure disorder ([facility]/ [facility]), Shortness of breath, Somatization disorder, Substance abuse ([facility]), Suicidal ideation, URI(upper respiratory infection), UTI (urinary tract infection), VRE [...] ALLERGIES Fentanyl, Tetracycline, Tramadol, Duloxetine, Fluoxetine, Haloperidol, [place], Metoclopramide hcl,Risperidone, Adhesive, Codeine, Gabapentin, Ketorolac tromethamine, Penicillins, Tetracyclines, andZiprasidone hcl HOME MEDICATIONS Discharge Medication List as of 04/19/2025 9:51 PM CONTINUE these medications which have NOT CHANGED Details cyclobenzaprine (FLEXERIL) 10 mg tablet Take 10 mg by mouth 3 times daily as needed for Spasm. tiZANidine (ZANAFLEX) 2 mg Tablet Take 1 Tablet (2 mg) by mouth every 6 hours as needed for Spasm.,Disp-30 Tablet, R-0 orphenadrine (NORFLEX) 100 mg Extended Release tablet Take 1 Tablet (100 mg) by mouth 2 times daily., Disp-20 Tablet, R-0 !! vortioxetine (Trintellix) 5 mg tablet Take 5 mg by mouth daily. acetaminophen (TYLENOL ARTHRITIS) 650 mg Extended Release tablet Take 650 mg by mouth every 6 hoursas needed for Pain. diphenoxylate-atropine 2.5 mg-0.025 mg tablet Take 1 Tablet by mouth 4 times daily as needed for Diarrhea/Loose Stools., Disp-30 Tablet, R-0 naloxone (NARCAN) 4 mg/spray [place], Non-Aerosol EMERGENCY USE ONLY: Administer 1 spray [...] provider. Objective PHYSICAL EXAM INITIAL VS BP: (!) 126/96 (04/19/252033), Heart Rate: 82 bpm (04/19/252033), Resp: 20 (04/19/252033), Pulse: 82 (04/19/252033), Temp: 97.8 ??F (36.6 ??C) (04/19/252033), Temp src: Tympanic (04/19/252033),SpO2: 97 % (04/19/252033), Height: 5' 2 (157.5 cm) (04/19/252033), Weight: 76.2 kg (168 lb) (04/19/252033), BMI (Calculated): (!) 30.72 (04/19/252033) No LMP recorded. Patient has had a hysterectomy. Physical Exam Vitals and nursing note reviewed. Constitutional: General: She is in acute distress. Appearance: She is well-developed. [...] no abdominal tenderness. Musculoskeletal: General: Tenderness present. Cervical back: Normal range of motion and neck supple. Comments: Painful range of motion of the right shoulder. Pain over the posterior aspect of the right shoulder. No ecchymosis. No gross deformity. Right lower lumbar tenderness. No ecchymosis. Skin: General: Skin is warm and dry. Neurological: Mental Status: She is alert and oriented to person, place, and time. Cranial Nerves: No cranial nerve deficit. Psychiatric: Behavior: Behavior normal. Thought Content: Thought content normal. DIAGNOSTICS LAB: No data to display RADIOLOGY: XR SHOULDER 2+ VW RIGHT Radiologist Impression IMPRESSION: Negative for an acute bony abnormality. Moderate osteoarthritis of the acromioclavicular joint. EKG: PROCEDURES Procedures MEDICAL DECISION MAKING AND PLAN OF CARE Medical Decision Making X-rays of the right shoulder were negative. Patient requested pain medication. I did order Toradol but she stated she could not take that due to her stomach problems. She states the only thing she can take for her pain is morphine and Dilaudid. She is currently seeing a pain specialist who wears her on tizanidine. I told her we would not treat this pain with narcotics and furthermore if her pain specialist is not prescribing narcotics we should not be doing so in the emergency department. She understands. Recommended ice to the areas as needed. Follow-up with primary care physician and pain specialist for ongoing care. She was discharged in stable condition. Amount and/or Complexity of Data Reviewed Radiology: ordered. Clinical Scoring & Consults Medications Administered During the ED Stay from 04/19/20252022 to 04/20/2025 0611 Date/Time Order Dose Route Action 04/19/2025 2100 CDT ketorolac (TORADOL) injection 10 mg 10 mg IM Refused Discharge Medication List as of 04/19/2025 9:51 PM CONTINUE these medications which have NOT CHANGED Details cyclobenzaprine (FLEXERIL) 10 mg tablet Take 10 mg by mouth 3 times daily as needed for Spasm. tiZANidine (ZANAFLEX) 2 mg Tablet Take 1 Tablet (2 mg) by mouth every 6 hours as needed for Spasm.,Disp-30 Tablet, R-0 orphenadrine (NORFLEX) 100 mg Extended Release tablet Take 1 Tablet (100 mg) by mouth 2 times daily., Disp-20 Tablet, R-0 !! vortioxetine (Trintellix) 5 mg tablet Take 5 mg by mouth daily. acetaminophen (TYLENOL ARTHRITIS) 650 mg Extended Release tablet Take 650 mg by mouth every 6 hoursas needed for Pain. diphenoxylate-atropine 2.5 mg-0.025 mg tablet Take 1 Tablet by mouth 4 times daily as needed for Diarrhea/Loose Stools., Disp-30 Tablet, R-0 naloxone (NARCAN) 4 mg/spray [place], Non-Aerosol EMERGENCY USE ONLY: Administer 1 spray [...] discuss with provider. LAST VS BP: (!) 94/61 (04/19/252129), Heart Rate: 82 bpm (04/19/252033), Resp: 18 (04/19/252129), Pulse:72 (04/19/252129), Temp: 97.8 ??F (36.6 ??C) (04/19/252033), Temp src: Tympanic (04/19/252033), SpO2: 93 % (04/19/252129) CLINICAL IMPRESSION Diagnosis Diagnosis Comment Added By Time Added Sprain of right shoulder, unspecified shoulder sprain type, initial encounter [S43.401A] Tommy Matthews MD 04/19/2025 9:49 PM DISPOSITION, EDUCATION AND MEDICATION RECONCILIATION Medications reconciled. See after visit summary for patient education on discharged patients. ED Disposition ED Disposition Discharge Condition Stable User Tommy Matthews MD Date/Time Sat Apr 19, 2025 9:49 PM Comment -- ATTESTATION STATEMENTS ADMINISTRATOR documented in this encounter Plan of Treatment Not on file documented as of this encounter Procedures Procedure Name Priority Date/Time Associated Diagnosis Comments XR SHOULDER 2+ VW RIGHT Stat 04/19/2025 8:56 PM CDT documented in this encounter Results * XR SHOULDER 2+ VW RIGHT (04/19/2025 8:56 PM CDT) Anatomical Region Laterality Modality Upper Extremity Computed Radiogr aphy 04/19/2025 8:56 PM CDT Impressions 04/19/2025 9:49 PM CDT IMPRESSION: Negative for an acute bony abnormality. Moderate osteoarthritis of the acromioclavicular joint. Narrative 04/19/2025 9:49 PM CDT EXAM: XR SHOULDER 2+ VW RIGHT DATE/TIME OF EXAM: 04/19/2025 8:56 PM REASON FOR EXAM: Fall DIAGNOSIS: See Reason for Exam COMPARISON: Right shoulder x-ray 10/20/2018 FINDINGS: No evidence of a fracture, dislocation, or acute joint space abnormality. The acromioclavicular and coracoclavicular distances appear anatomic. Moderate degenerative changes of the acromioclavicular joint. The glenohumeral joint is unremarkable. Procedure Note Darleen Welch MD - 04/19/2025 EXAM: XR SHOULDER 2+ VW RIGHT DATE/TIME OF EXAM: 04/19/2025 8:56 PM REASON FOR EXAM: Fall DIAGNOSIS: See Reason for Exam COMPARISON: Right shoulder x-ray 10/20/2018 FINDINGS: No evidence of a fracture, dislocation, or acute joint space abnormality. The acromioclavicular and coracoclavicular distances appear anatomic. Moderate degenerative changes of the acromioclavicular joint. The glenohumeral joint is unremarkable. IMPRESSION: Negative for an acute bony abnormality. Moderate osteoarthritis of the acromioclavicular joint. Tommy Matthews MD DIAGNOSTIC IMAGING ORDER KAYLEE Final Result documented in this encounter Visit Diagnoses Diagnosis Sprain of right shoulder, unspecified shoulder sprain type, initial encounter- Primary documented in this encounter Active and Recently Administered Medications Times are shown in CDT. Scheduled Medication Order 04/17/2025 04/18/2025 04/19/2025 ketorolac (TORADOL) injection 10 mg 10 mg, IM, ONE TIME ONLY, 1 dose, On 04/19/25 at 2100, Routine 2100 (Refused - Prov ider: Jillian Joseph RN) documented in this encounter Additional Health Concerns Assessment Noted Time PHQ-9 Depression Total Score: 3 10/01/19 23 4:46 PM CDT documented as of this encounter Care Teams Scourer Relationship Specialty Start Date End Date Sally Dong MD [address] [phone] PCP - General Family Practice 04/07/22 documented as of this encounter
--- OUTSIDE RECORDS SUMMARY | 2025-04-20 21:12 | XMS_ITS | Encounter Summary ---
Author Organization [facility] Address [address] [place] [address] Care Team Providers Care Funeral Director/Embalmer/Owner Name Role Phone Dara Tavera Primary Care Provider [phone] Encounter Details Date Type Department Care Team (Late st Contact Info) Description 01/04/2004 Outpatient Historical [facility] [address] [place] [address] Hood Kerr Jr., MD [address] [place] [address] Social History Tobacco Use Types Packs/Day Years Used Date Smoking Tobacco: Never Assessed Comments Unknown Sex and Gender Information Value Date Recorded Sex Assigned at Not on file Legal Sex Female 5:22 AM DISTRICT RECRUITER Gender Identity Not on file Sexual Orientation Not on file documented as of this encounter Plan of Treatment Not on file documented as of this encounter Visit Diagnoses Not on filedocumented in this encounter Additional Health Concerns Infection Onset Date Last Indicated Resolved Time VRE Comment:Urine 10/30/13 Resolved 11/04/2013 11/04/2013 8 10:33 AM DISTRICT RECRUITER R/O COVID-19 12/25/2019 12/25/2019 12/26/2019 2:46 PM CDT R/O COVID-19 05/09/2020 05/09/2020 05/09/2020 12:1 7 PM DISTRICT RECRUITER documented as of this encounter Care Teams Funeral Director/Embalmer/Owner Relationship Specialty Start Date End Date Dara Tavera FNP [address] [place] [phone] PCP - General NURSE PRACTITIONER 10/13/18 documented as of this encounter
--- OUTSIDE RECORDS SUMMARY | 2025-04-20 21:12 | XMS_ITS | Encounter Summary ---
Author Organization [facility] Address [address] [place] [address] Care Team Providers Care Rn Diabetes Educator Name Role Phone Dara Tavera AMANDEEP Primary Care Provider Encounter Details Date Type Department Care Team (Latest Contact Info) Description 12/08/2003 Inpatient Historical [facility] [address] [place] [phone] Robel Samuel MD [address] [place] [address] DRUG DEPRESSIVE SYNDROME (CMS/HCC) (Primary Dx) Social History Tobacco Use Types Packs/Day Years Used Date Smoking Tobacco: Never Assessed Comments Unknown Sex and Gender Information Value Date Recorded Sex Assigned at Not on file Legal Sex Female 5:22 AM ISOLATION WASHER Gender Identity Not on file Sexual Orientation Not on file documented as of this encounter Plan of Treatment Not on file documented as of this encounter Visit Diagnoses Diagnosis 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/HCC)- Primary Drug-induced mood disorder documented in this encounter Additional Health Concerns Infection Onset Date Last Indicated Resolved Time VRE Comment:Urine 10/30/13 Resolved 11/04/2013 11/04/2013 8 10:33 AM ISOLATION WASHER R/O COVID-19 12/25/2019 12/25/2019 12/26/2019 2:46 PM CDT R/O COVID-19 05/09/2020 05/09/2020 05/09/2020 12:1 7 PM ISOLATION WASHER documented as of this encounter Care Teams Rn Diabetes Educator Relationship Specialty Start Date End Date Dara Tavera FNP [address] [place] [phone] PCP - General NURSE PRACTITIONER 10/13/18 documented as of this encounter
--- OUTSIDE RECORDS SUMMARY | 2025-04-20 21:12 | XMS_ITS | Encounter Summary ---
Author Organization [facility] Address [address] [place] [address] Care Team Providers Care Hhas Name Role Phone Dara Tavera Primary Care Provider [phone] Encounter Details Date Type Department Care Team (Latest Contact Info) Description 08/15/2004 Outpatient Historical [facility] [address] [place] [address] AMBULANCE, [facility] (Primary Dx) Social History Tobacco Use Types Packs/Day Years Used Date Smoking Tobacco: Never Assessed Comments Unknown Sex and Gender Information Value Date Recorded Sex Assigned at Not on file Legal Sex Female 5:22 AM MANAGEMENT PROFESSIONALS Gender Identity Not on file Sexual Orientation Not on file documented as of this encounter Plan of Treatment Not on file documented as of this encounter Visit Diagnoses Diagnosis Syncope and collapse- Primary documented in this encounter Additional Health Concerns Infection Onset Date Last Indicated Resolved Time VRE Comment:Urine 10/30/13 Resolved 11/04/2013 11/04/2013 8 10:33 AM MANAGEMENT PROFESSIONALS R/O COVID-19 12/25/2019 12/25/2019 12/26/2019 2:4 6 PM CDT R/O COVID-19 05/09/2020 05/09/2020 05/09/2020 12:1 7 PM MANAGEMENT PROFESSIONALS documented as of this encounter Care Teams Hhas Relationship Specialty Start Date End Date Dara Tavera FNP [address] [place] [phone] PCP - General NURSE PRACTITIONER 10/13/18 documented as of this encounter
--- OUTSIDE RECORDS SUMMARY | 2025-04-20 21:12 | XMS_ITS | Encounter Summary ---
Author Organization [facility] Address [address] [place] [address] Care Team Providers Care Pickle Maker Name Role Phone Dara Tavera Primary Care Provider Encounter Details Date Type Department Care Team (Latest Contact Info) Description 02/11/2004 Outpatient Historical [facility] [address] [place] [address] AMBULANCE, [facility] NONPSYCHOTIC MENTAL DISORDER NOS (Primary Dx) Social History Tobacco Use Types Packs/Day Years Used Date Smoking Tobacco: Never Assessed Comments Unknown Sex and Gender Information Value Date Recorded Sex Assigned at Not on file Legal Sex Female 5:22 AM PRODUCTS MECHANICAL DESIGN ENGINEER Gender Identity Not on file Sexual Orientation Not on file documented as of this encounter Plan of Treatment Not on file documented as of this encounter Visit Diagnoses Diagnosis Unspecified nonpsychotic mental disorder- Primary documented in this encounter Additional Health Concerns Infection Onset Date Last Indicated Resolved Time VRE Comment:Urine 10/30/13 Resolved 11/04/2013 11/04/2013 8 10:33 AM PRODUCTS MECHANICAL DESIGN ENGINEER R/O COVID-19 12/25/2019 12/25/2019 12/26/2019 2:46 PM CDT R/O COVID-19 05/09/2020 05/09/2020 05/09/2020 12:1 7 PM PRODUCTS MECHANICAL DESIGN ENGINEER documented as of this encounter Care Teams Pickle Maker Relationship Specialty Start Date End Date Dara Tavera FNP [address] [place] [phone] PCP - General NURSE PRACTITIONER 10/13/18 documented as of this encounter
--- OUTSIDE RECORDS SUMMARY | 2025-04-20 21:12 | XMS_ITS | Encounter Summary ---
Author Organization [facility] Address [address] [place] [address] Care Team Providers Care Environmental Solutions Engineer Name Role Phone Dara Tavera Primary Care Provider Encounter Details Date Type Department Care Team (Latest Contact Info) Description 01/21/2004 Outpatient Historical [facility] [address] [place] [address] AMBULANCE, [facility], OTHER (CMS/HCC) (Primary Dx) Social History Tobacco Use Types Packs/Day Years Used Date Smoking Tobacco: Never Assessed Comments Unknown Sex and Gender Information Value Date Recorded Sex Assigned at Not on file Legal Sex Female 5:22 AM TAILOR APPRENTICE Gender Identity Not on file Sexual Orientation Not on file documented as of this encounter Plan of Treatment Not on file documented as of this encounter Visit Diagnoses Diagnosis Other convulsions- Primary documented in this encounter Additional Health Concerns Infection Onset Date Last Indicated Resolved Time VRE Comment:Urine 10/30/13 Resolved 11/04/2013 11/04/2013 8 10:33 AM TAILOR APPRENTICE R/O COVID-19 12/25/2019 12/25/2019 12/26/2019 2:46 PM CDT R/O COVID-19 05/09/2020 05/09/2020 05/09/2020 12:1 7 PM TAILOR APPRENTICE documented as of this encounter Care Teams Environmental Solutions Engineer Relationship Specialty Start Date End Date Dara Tavera FNP [address] [place] [phone] PCP - General NURSE PRACTITIONER 10/13/18 documented as of this encounter
--- OUTSIDE RECORDS SUMMARY | 2025-04-20 21:12 | XMS_ITS | Encounter Summary ---
Author Organization [facility] Address [address] [place] [address] Care Team Providers Care Careers Counsellor Name Role Phone Dara Tavera Primary Care Provider Encounter Details Date Type Department Care Team (Latest Contact Info) Description 05/12/2004 Outpatient Historical [facility] [address] [place] [address] AMBULANCE, [facility] CHEST PAIN NOS (Primary Dx) Social History Tobacco Use Types Packs/Day Years Used Date Smoking Tobacco: Never Assessed Comments Unknown Sex and Gender Information Value Date Recorded Sex Assigned at Not on file Legal Sex Female 5:22 AM EAR MACHINE OPERATOR Gender Identity Not on file Sexual Orientation Not on file documented as of this encounter Plan of Treatment Not on file documented as of this encounter Visit Diagnoses Diagnosis Chest pain, unspecified- Primary documented in this encounter Additional Health Concerns Infection Onset Date Last Indicated Resolved Time VRE Comment:Urine 10/30/13 Resolved 11/04/2013 11/04/2013 8 10:33 AM EAR MACHINE OPERATOR R/O COVID-19 12/25/2019 12/25/2019 12/26/2019 2:46 PM CDT R/O COVID-19 05/09/2020 05/09/2020 05/09/2020 12:1 7 PM EAR MACHINE OPERATOR documented as of this encounter Care Teams Careers Counsellor Relationship Specialty Start Date End Date Dara Tavera FNP [address] [place] [phone] PCP - General NURSE PRACTITIONER 10/13/18 documented as of this encounter
--- OUTSIDE RECORDS SUMMARY | 2025-04-20 21:12 | XMS_ITS | Encounter Summary ---
Author Organization [facility] Address [address] [place] [address] Care Team Providers Care Chute Boss Name Role Phone Dara Tavera Primary Care Provider Encounter Details Date Type Department Care Team (Latest Contact Info) Description 07/24/2004 Outpatient Historical [facility] [address] [place] [address] AMBULANCE, [facility] CONVULSIONS, OTHER (CMS/HCC) (Primary Dx) Social History Tobacco Use Types Packs/Day Years Used Date Smoking Tobacco: Never Assessed Comments Unknown Sex and Gender Information Value Date Recorded Sex Assigned at Not on file Legal Sex Female 5:22 AM LIMOUSINE AND HEARSE UPHOLSTERER Gender Identity Not on file Sexual Orientation Not on file documented as of this encounter Plan of Treatment Not on file documented as of this encounter Visit Diagnoses Diagnosis Other convulsions- Primary documented in this encounter Additional Health Concerns Infection Onset Date Last Indicated Resolved Time VRE Comment:Urine 10/30/13 Resolved 11/04/2013 11/04/2013 8 10:33 AM LIMOUSINE AND HEARSE UPHOLSTERER R/O COVID-19 12/25/2019 12/25/2019 12/26/2019 2:46 PM CDT R/O COVID-19 05/09/2020 05/09/2020 05/09/2020 12:1 7 PM LIMOUSINE AND HEARSE UPHOLSTERER documented as of this encounter Care Teams Chute Boss Relationship Specialty Start Date End Date Dara Tavera FNP [address] [place] [phone] PCP - General NURSE PRACTITIONER 10/13/18 documented as of this encounter
--- OUTSIDE RECORDS SUMMARY | 2025-04-20 21:13 | XMS_ITS | Encounter Summary ---
Author Organization [facility] Address [address] [place] [address] Care Team Providers Care Net Finisher Name Role Phone Dara Tavera Primary Care Provider Encounter Details Date Type Department Care Team (Latest Contact Info) Description 02/24/2005 Outpatient Historical [facility] [address] [facility] [address] [place] [address] Prasad Carpenter MD NO ADDRESS ON FILE LUMB/LUMBOSAC DISC DEGEN (Primary Dx) Social History Tobacco Use Types Packs/Day Years Used Date Smoking Tobacco: Never Assessed Comments Unknown Sex and Gender Information Value Date Recorded Sex Assigned at Not on file Legal Sex Female 5:22 AM PURCHASING CONTRACTING CLERK Gender Identity Not on file Sexual Orientation Not on file documented as of this encounter Plan of Treatment Not on file documented as of this encounter Visit Diagnoses Diagnosis Degeneration of lumbar or lumbosacral intervertebral disc- Primary documented in this encounter Additional Health Concerns Infection Onset Date Last Indicated Resolved Time VRE Comment:Urine 10/30/13 Resolved 11/04/2013 11/04/2013 8 10:33 AM PURCHASING CONTRACTING CLERK R/O COVID-19 12/25/2019 12/25/2019 12/26/2019 2:46 PM CDT R/O COVID-19 05/09/2020 05/09/2020 05/09/2020 12:1 7 PM PURCHASING CONTRACTING CLERK documented as of this encounter Care Teams Net Finisher Relationship Specialty Start Date End Date Dara Tavera FNP [address] [place] [address] PCP - General NURSE PRACTITIONER 10/13/18 documented as of this encounter
--- OUTSIDE RECORDS SUMMARY | 2025-04-20 21:13 | XMS_ITS | Encounter Summary ---
Author Organization [facility] Address [address] [place] [address] Care Team Providers Care Channel Marketing Coordinator Name Role Phone Dara Tavera Primary Care Provider Encounter Details Date Type Department Care Team (Latest Contact Info) Description 11/25/2004 Outpatient Historical [facility] [address] [place] [address] AMBULANCE, [facility] NONPSYCHOTIC MENTAL DISORDER NOS (Primary Dx) Social History Tobacco Use Types Packs/Day Years Used Date Smoking Tobacco: Never Assessed Comments Unknown Sex and Gender Information Value Date Recorded Sex Assigned at Not on file Legal Sex Female 5:22 AM STRINGED INSTRUMENT REPAIRER Gender Identity Not on file Sexual Orientation Not on file documented as of this encounter Plan of Treatment Not on file documented as of this encounter Visit Diagnoses Diagnosis Unspecified nonpsychotic mental disorder- Primary documented in this encounter Additional Health Concerns Infection Onset Date Last Indicated Resolved Time VRE Comment:Urine 10/30/13 Resolved 11/04/2013 11/04/2013 8 10:33 AM STRINGED INSTRUMENT REPAIRER R/O COVID-19 12/25/2019 12/25/2019 12/26/2019 2:46 PM CDT R/O COVID-19 05/09/2020 05/09/2020 05/09/2020 12:1 7 PM STRINGED INSTRUMENT REPAIRER documented as of this encounter Care Teams Channel Marketing Coordinator Relationship Specialty Start Date End Date Dara Tavera FNP [address] [place] [address] PCP - General NURSE PRACTITIONER 10/13/18 documented as of this encounter
--- OUTSIDE RECORDS SUMMARY | 2025-04-20 21:13 | XMS_ITS | Encounter Summary ---
Author Organization [facility] Address [address] [place] [address] Care Team Providers Care Manager Behavior Name Role Phone Dara Tavera Primary Care Provider Encounter Details Date Type Department Care Team (Late st Contact Info) Description 12/05/2003 Outpatient Historical [facility] [address] [place] [address] Hood Kerr Jr., MD [address] [place] [address] Social History Tobacco Use Types Packs/Day Years Used Date Smoking Tobacco: Never Assessed Comments Unknown Sex and Gender Information Value Date Recorded Sex Assigned at Not on file Legal Sex Female 5:22 AM CIGAR HEAD HOLER Gender Identity Not on file Sexual Orientation Not on file documented as of this encounter Plan of Treatment Not on file documented as of this encounter Visit Diagnoses Not on filedocumented in this encounter Additional Health Concerns Infection Onset Date Last Indicated Resolved Time VRE Comment:Urine 10/30/13 Resolved 11/04/2013 11/04/2013 8 10:33 AM CIGAR HEAD HOLER R/O COVID-19 12/25/2019 12/25/2019 12/26/2019 2:46 PM CDT R/O COVID-19 05/09/2020 05/09/2020 05/09/2020 12:1 7 PM CIGAR HEAD HOLER documented as of this encounter Care Teams Manager Behavior Relationship Specialty Start Date End Date Dara Tavera FNP [address] [place] [phone] PCP - General NURSE PRACTITIONER 10/13/18 documented as of this encounter
--- OUTSIDE RECORDS SUMMARY | 2025-04-20 21:13 | XMS_ITS | Encounter Summary ---
Author Organization [facility] Address [address] [place] [address] Care Team Providers Care Offender Employment Specialist Name Role Phone Dara Tavera Primary Care Provider Encounter Details Date Type Department Care Team (Late st Contact Info) Description 02/22/2005 Outpatient Historical [facility] Medicine [place] [address] [facility] [address] [place] [address] Social History Tobacco Use Types Packs/Day Years Used Date Smoking Tobacco: Never Assessed Comments Unknown Sex and Gender Information Value Date Recorded Sex Assigned at Not on file Legal Sex Female 5:22 AM FIRE LIEUTENANT MARINE Gender Identity Not on file Sexual Orientation Not on file documented as of this encounter Plan of Treatment Not on file documented as of this encounter Visit Diagnoses Not on filedocumented in this encounter Additional Health Concerns Infection Onset Date Last Indicated Resolved Time VRE Comment:Urine 10/30/13 Resolved 11/04/2013 11/04/2013 8 10:33 AM FIRE LIEUTENANT MARINE R/O COVID-19 12/25/2019 12/25/2019 12/26/2019 2:46 PM CDT R/O COVID-19 05/09/2020 05/09/2020 05/09/2020 12:1 7 PM FIRE LIEUTENANT MARINE documented as of this encounter Care Teams Offender Employment Specialist Relationship Specialty Start Date End Date Dara Tavera FNP [address] [place] [phone] PCP - General NURSE PRACTITIONER 10/13/18 documented as of this encounter
--- OUTSIDE RECORDS SUMMARY | 2025-04-20 21:13 | XMS_ITS | Encounter Summary ---
Author Organization [facility] Address [address] [place] [address] Care Team Providers Care Landscape Account Manager Name Role Phone Dara Tavera Primary Care Provider [phone] Encounter Details Date Type Department Care Team (Latest Contact Info) Description 12/01/2004 Outpatient Historical [facility] Medicine [place] [address] [facility] [address] [place] [address] Faiza Petersen MD NO ADDRESS ON FILE FEM PELV INFLAM DIS NOS (Primary Dx); ABDOMINAL PAIN UNSPEC SITE Social History Tobacco Use Types Packs/Day Years Used Date Smoking Tobacco: Never Assessed Comments Unknown Sex and Gender Information Value Date Recorded Sex Assigned at Not on file Legal Sex Female 5:22 AM SHIRRER Gender Identity Not on file Sexual Orientation [...] 10/30/13 Resolved 11/04/2013 11/04/2013 8 10:33 AM SHIRRER R/O COVID-19 12/25/2019 12/25/2019 12/26/2019 2:46 PM CDT R/O COVID-19 05/09/2020 05/09/2020 05/09/2020 12:1 7 PM SHIRRER documented as of this encounter Care Teams Landscape Account Manager Relationship Specialty Start Date End Date Dara Tavera FNP [address] [place] [address] PCP - General NURSE PRACTITIONER 10/13/18 documented as of this encounter
--- OUTSIDE RECORDS SUMMARY | 2025-04-20 21:13 | XMS_ITS | Encounter Summary ---
Author Organization [facility] Address [address] [place] [address] Care Team Providers Care Business System Manager Name Role Phone Dara Tavera Primary Care Provider Encounter Details Date Type Department Care Team (Latest Contact Info) Description 05/22/2003 Outpatient Historical [facility] Urology- [address]tr[address], 3rd [place] [address] Hossein Blair MD NO ADDRESS ON FILE FB bladder/urethra (Primary Dx); URGE & STRESS MIXED INCONTINENCE Social History Tobacco Use Types Packs/Day Years Used Date Smoking Tobacco: Never Assessed Comments Unknown Sex and Gender Information Value Date Recorded Sex Assigned at Not on file Legal Sex Female 5:22 AM DIRECTOR LABOR STANDARDS Gender Identity Not on file Sexual Orientation [...] Resolved 11/04/2013 11/04/2013 8 10:33 AM DIRECTOR LABOR STANDARDS R/O COVID-19 12/25/2019 12/25/2019 12/26/2019 2:46 PM CDT R/O COVID-19 05/09/2020 05/09/2020 05/09/2020 12:1 7 PM DIRECTOR LABOR STANDARDS documented as of this encounter Care Teams Business System Manager Relationship Specialty Start Date End Date Dara Tavera FNP [address] [place] [phone] PCP - General NURSE PRACTITIONER 10/13/18 documented as of this encounter
--- OUTSIDE RECORDS SUMMARY | 2025-04-20 21:13 | XMS_ITS | Encounter Summary ---
Author Organization [facility] Address [address] [place] [address] Care Team Providers Care Mutuel Teller Name Role Phone Dara Tavera Primary Care Provider Encounter Details Date Type Department Care Team (Latest Contact Info) Description 11/08/2002 Outpatient Historical [facility] Ear, Nose and Throat 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
--- OUTSIDE RECORDS SUMMARY | 2025-04-20 21:13 | XMS_ITS | Encounter Summary ---
Author Organization [facility] Address [address] [place] [address] Care Team Providers Care Health Program Director Name Role Phone Dara Tavera AMANDEEP Primary Care Provider Encounter Details Date Type Department Care Team (Latest Contact Info) Description 11/04/2002 Outpatient Historical [facility] Ear, Nose and Throat [place] [address] 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, including tongue documented in this encounter Additional Health Concerns Infection Onset Date Last Indicated Resolved Time VRE Comment:Urine 10/30/13 Resolved 11/04/2013 11/04/2013 8 10:33 AM CONVEYOR LINE BATTERY CHARGER R/O COVID-19 12/25/2019 12/25/2019 12/26/2019 2:46 PM CDT R/O COVID-19 05/09/2020 05/09/2020 05/09/2020 12:1 7 PM CONVEYOR LINE BATTERY CHARGER documented as of this encounter Care Teams Health Program Director Relationship Specialty Start Date End Date Dara Tavera FNP [address] [place] [phone] PCP - General NURSE PRACTITIONER 10/13/18 documented as of this encounter
--- OUTSIDE RECORDS SUMMARY | 2025-04-20 21:13 | XMS_ITS | Encounter Summary ---
Author Organization [facility] Address [address] [place] [address] Care Team Providers Care Mine Utility Operator Name Role Phone Dara Tavera AMANDEEP Primary Care Provider Encounter Details Date Type Department Care Team (Latest Contact Info) Description 03/07/2005 Outpatient Historical [facility] Pain Management- [place] [address] [place] [address] Prasad Carpenter MD NO ADDRESS ON FILE Lumbosacral spondylosis (Primary Dx); LUMBAGO; LUMB/LUMBOSAC DISC DEGEN; OTHER BACK SYMPTOMS Social History Tobacco Use Types Packs/Day Years Used Date Smoking Tobacco: Never Assessed Comments Unknown Sex and Gender Information Value Date Recorded Sex Assigned at Not on file Legal Sex Female 5:22 AM RULING MACHINE FEEDER Gender Identity Not on file Sexual [...] 10/30/13 Resolved 11/04/2013 11/04/2013 8 10:33 AM RULING MACHINE FEEDER R/O COVID-19 12/25/2019 12/25/2019 12/26/2019 2:46 PM CDT R/O COVID-19 05/09/2020 05/09/2020 05/09/2020 12:1 7 PM RULING MACHINE FEEDER documented as of this encounter Care Teams Mine Utility Operator Relationship Specialty Start Date End Date Dara Tavera FNP [address] [place] [phone] PCP - General NURSE PRACTITIONER 10/13/18 documented as of this encounter
--- OUTSIDE RECORDS SUMMARY | 2025-04-20 21:13 | XMS_ITS | Encounter Summary ---
Author Organization [facility] Address [address] [place] [address] Care Team Providers Care Construction Site Manager Name Role Phone Dara Tavera Primary Care Provider Encounter Details Date Type Department Care Team (Latest Contact Info) Description 12/07/2003 Outpatient Historical [facility] SCHIZOPHRENIA NOS-UNSPEC (CMS/HCC) (Primary Dx) Social History Tobacco Use Types Packs/Day Years Used Date Smoking Tobacco: Never Assessed Comments Unknown Sex and Gender Information Value Date Recorded Sex Assigned at Not on file Legal Sex Female 5:22 AM GOLF COACH Gender Identity Not on file Sexual [...] Resolved 11/04/2013 11/04/2013 8 10:33 AM GOLF COACH R/O COVID-19 12/25/2019 12/25/2019 12/26/2019 2:46 PM CDT R/O COVID-19 05/09/2020 05/09/2020 05/09/2020 12:1 7 PM GOLF COACH documented as of this encounter Care Teams Construction Site Manager Relationship Specialty Start Date End Date Dara Tavera FNP [address] [place] [phone] PCP - General NURSE PRACTITIONER 10/13/18 documented as of this encounter
--- OUTSIDE RECORDS SUMMARY | 2025-04-20 21:13 | XMS_ITS | Encounter Summary ---
Author Organization [facility] Address [address] [place]: [place] [address] Care Team Providers Care Prompt Care Rn Name Role Phone Sally Dong MD Primary Care Provider [phone] Encounter Details Date Type Department Care Team (Latest Contact Info) Description 04/19/2025 Travel Social History Tobacco Use Types Packs/Day [...] asked 05/05/2019 How often do you attend mormon or christian serv ices? Not asked 05/05/2019 Do you belong to any clubs o r organizations such as mormon groups, unions, fraternal or athletic groups, or [...] worry about transportation for future doctor visits, pickle sorter medication, etc.? No 2024 Housing Stability Answer [...] PM CDT Legal Sex Female 2:06 AM CANAL DRIVER Gender Identity Female 03/25/2024 4:14 PM CDT Sexual Orientation Not on file documented as of this encounter Plan of Treatment Not on file documented as of this encounter Visit Diagnoses Not on filedocumented in this encounter Additional Health Concerns Assessment Noted Time PHQ-9 Depression Total Score: 3 10/01/19 23 4:46 PM CDT documented as of this encounter Care Teams Prompt Care Rn Relationship Specialty Start Date End Date Sally Dong MD [address] [address] PCP - General Family Practice 04/07/22 documented as of this encounter
--- OUTSIDE RECORDS SUMMARY | 2025-04-20 21:13 | XMS_ITS | Encounter Summary ---
Author Organization [facility] Address [address] [place] [address] Care Team Providers Care Public Health Worker Name Role Phone Dara Tavera Primary Care Provider Encounter Details Date Type Department Care Team (Latest Contact Info) Description 04/28/2005 Outpatient Historical [facility] [address] [place] [address] [place] [address] Krissy Pickard FNP [address] [facility] [address] [place] [address] ENTHESOPATHY OF HIP (Primary Dx) Social History Tobacco Use Types Packs/Day Years Used Date Smoking Tobacco: Never Assessed Comments Unknown Sex and Gender Information Value Date Recorded Sex Assigned at Not on file Legal Sex Female 5:22 AM PELLETISING EXTRUDER OPERATOR Gender Identity Not on file Sexual Orientation Not on file documented as of this encounter Plan of Treatment Not on file documented as of this encounter Visit Diagnoses Diagnosis Enthesopathy of hip region- Primary documented in this encounter Additional Health Concerns Infection Onset Date Last Indicated Resolved Time VRE Comment:Urine 10/30/13 Resolved 11/04/2013 11/04/2013 8 10:33 AM PELLETISING EXTRUDER OPERATOR R/O COVID-19 12/25/2019 12/25/2019 12/26/2019 2:46 PM CDT R/O COVID-19 05/09/2020 05/09/2020 05/09/2020 12:1 7 PM PELLETISING EXTRUDER OPERATOR documented as of this encounter Care Teams Public Health Worker Relationship Specialty Start Date End Date Dara Tavera FNP [address] [place] [phone] PCP - General NURSE PRACTITIONER 10/13/18 documented as of this encounter
--- OUTSIDE RECORDS SUMMARY | 2025-04-20 21:13 | XMS_ITS | Encounter Summary ---
Author Organization [facility] Address [address] [facility] [address] Att[address]: [place] [address] Care Team Providers Care Ceramic Tiler Name Role Phone Dara Tavera AMANDEEP Primary Care Provider Encounter Details Date Type Department Care Team (Late st Contact Info) Description 05/02/2003 Inpatient Historical Hood Kerr Jr., MD [address] [facility] [place] [address] SCHIZOAFF-SUBCHR/EXACER (CMS/[facility]) (Primary Dx) Social History Tobacco Use Types Packs/Day Years Used Date Smoking Tobacco: Never Assessed Comments Unknown Sex and Gender Information Value Date Recorded Sex Assigned at Not on file Legal Sex Female 5:22 AM WHITING CAN WORKER Gender Identity Not on file Sexual [...] 10/30/13 Resolved 11/04/2013 11/04/2013 8 10:33 AM WHITING CAN WORKER R/O COVID-19 12/25/2019 12/25/2019 12/26/2019 2:46 PM CDT R/O COVID-19 05/09/2020 05/09/2020 05/09/2020 12:1 7 PM WHITING CAN WORKER documented as of this encounter Care Teams Ceramic Tiler Relationship Specialty Start Date End Date Dara Tavera FNP [address] [place] [phone] PCP - General NURSE PRACTITIONER 10/13/18 documented as of this encounter
--- OUTSIDE RECORDS SUMMARY | 2025-04-20 21:13 | XMS_ITS | Encounter Summary ---
Author Organization [facility] Address [address] [place] [address] Care Team Providers Care Research Librarian Name Role Phone Dara Tavera Primary Care Provider Encounter Details Date Type Department Care Team (Latest Contact Info) Description 07/24/2004 Outpatient Historical [facility] Amb[facility] [address] [place] [address] AMBULANCE, [facility] OTHER ALTERATION OF CONSCIOUSNESS (Primary Dx) Social History Tobacco Use Types Packs/Day Years Used Date Smoking Tobacco: Never Assessed Comments Unknown Sex and Gender Information Value Date Recorded Sex Assigned at Not on file Legal Sex Female 5:22 AM TIMBER TREATMENT PLANT OPERATOR Gender Identity Not on file Sexual Orientation Not on file documented as of this encounter Plan of Treatment Not on file documented as of this encounter Visit Diagnoses Diagnosis Other alteration of consciousness- Primary documented in this encounter Additional Health Concerns Infection Onset Date Last Indicated Resolved Time VRE Comment:Urine 10/30/13 Resolved 11/04/2013 11/04/2013 8 10:33 AM TIMBER TREATMENT PLANT OPERATOR R/O COVID-19 12/25/2019 12/25/2019 12/26/2019 2:46 PM CDT R/O COVID-19 05/09/2020 05/09/2020 05/09/2020 12:1 7 PM TIMBER TREATMENT PLANT OPERATOR documented as of this encounter Care Teams Research Librarian Relationship Specialty Start Date End Date Dara Tavera FNP [address] [place] [phone] PCP - General NURSE PRACTITIONER 10/13/18 documented as of this encounter
--- OUTSIDE RECORDS SUMMARY | 2025-04-20 21:13 | XMS_ITS | Encounter Summary ---
Author Organization [facility] Address [address] [place] [address] Care Team Providers Care Automotive Mechanical Engineer Name Role Phone Dara Tavera Primary Care Provider Encounter Details Date Type Department Care Team (Late st Contact Info) Description 07/16/2003 Outpatient [facility] [address] [place] [address] Hossein Blair MD NO ADDRESS ON FILE BLADDER DISORDER NEC (Primary Dx) Social History Tobacco Use Types Packs/Day Years Used Date Smoking Tobacco: Never Assessed Comments Unknown Sex and Gender Information Value Date Recorded Sex Assigned at Not on file Legal Sex Female 5:22 AM EFFERVESCENT SALTS COMPOUNDER Gender Identity Not on file Sexual Orientation Not on file documented as of this encounter Plan of Treatment Not on file documented as of this encounter Visit Diagnoses Diagnosis Other specified disorder of bladder- Primary documented in this encounter Additional Health Concerns Infection Onset Date Last Indicated Resolved Time VRE Comment:Urine 10/30/13 Resolved 11/04/2013 11/04/2013 8 10:33 AM EFFERVESCENT SALTS COMPOUNDER R/O COVID-19 12/25/2019 12/25/2019 12/26/2019 2:46 PM CDT R/O COVID-19 05/09/2020 05/09/2020 05/09/2020 12:1 7 PM EFFERVESCENT SALTS COMPOUNDER documented as of this encounter Care Teams Automotive Mechanical Engineer Relationship Specialty Start Date End Date Dara Tavera FNP [address] [place] [address] PCP - General NURSE PRACTITIONER 10/13/18 documented as of this encounter
--- OUTSIDE RECORDS SUMMARY | 2025-04-20 21:13 | XMS_ITS | Encounter Summary ---
Author Organization [facility] Address [address] [place] [address] Care Team Providers Care Nail Making Machine Tender Name Role Phone Dara Tavera Primary Care Provider Encounter Details Date Type Department Care Team (Latest Contact Info) Description 07/28/2003 Outpatient Historical [facility] PreAdmission [id number] [place] [address] Hossein Blair MD NO ADDRESS ON FILE PREOP EXAM OTHER SPECIFIED (Primary Dx) Social History Tobacco Use Types Packs/Day Years Used Date Smoking Tobacco: Never Assessed Comments Unknown Sex and Gender Information Value Date Recorded Sex Assigned at Not on file Legal Sex Female 5:22 AM CREDIT REPORTER Gender Identity Not on file Sexual Orientation Not on file documented as of this encounter Plan of Treatment Not on file documented as of this encounter Visit Diagnoses Diagnosis Other specified pre-operative examination- Primary documented in this encounter Additional Health Concerns Infection Onset Date Last Indicated Resolved Time VRE Comment:Urine 10/30/13 Resolved 11/04/2013 11/04/2013 8 10:33 AM CREDIT REPORTER R/O COVID-19 12/25/2019 12/25/2019 12/26/2019 2:46 PM CDT R/O COVID-19 05/09/2020 05/09/2020 05/09/2020 12:1 7 PM CREDIT REPORTER documented as of this encounter Care Teams Nail Making Machine Tender Relationship Specialty Start Date End Date Dara Tavera FNP [address] [place] [address] PCP - General NURSE PRACTITIONER 10/13/18 documented as of this encounter
--- OUTSIDE RECORDS SUMMARY | 2025-04-20 21:13 | XMS_ITS | Encounter Summary ---
Author Organization [facility] Address [address] [place] [address] Care Team Providers Care Stain Wiper Name Role Phone Dara Tavera Primary Care Provider Encounter Details Date Type Department Care Team (Latest Contact Info) Description 12/01/2003 Outpatient Historical [facility] Urology- [address]tr[address], 3rd [place] [address] Hossein Blair MD NO ADDRESS ON FILE FEMALE STRESS INCONTINENCE (Primary Dx); ENURESIS NOS Social History Tobacco Use Types Packs/Day Years Used Date Smoking Tobacco: Never Assessed Comments Unknown Sex and Gender Information Value Date Recorded Sex Assigned at Not on file Legal Sex Female 5:22 AM PROSTHETIC AIDE Gender Identity Not on file Sexual Orientation Not on file documented as of this encounter Plan of Treatment Not on file documented as of this encounter Visit Diagnoses Diagnosis Female stress incontinence- Primary Unspecified urinary incontinence documented in this encounter Additional Health Concerns Infection Onset Date Last Indicated Resolved Time VRE Comment:Urine 10/30/13 Resolved 11/04/2013 11/04/2013 8 10:33 AM PROSTHETIC AIDE R/O COVID-19 12/25/2019 12/25/2019 12/26/2019 2:46 PM CDT R/O COVID-19 05/09/2020 05/09/2020 05/09/2020 12:1 7 PM PROSTHETIC AIDE documented as of this encounter Care Teams Stain Wiper Relationship Specialty Start Date End Date Dara Tavera FNP [address] [place] [address] PCP - General NURSE PRACTITIONER 10/13/18 documented as of this encounter
--- OUTSIDE RECORDS SUMMARY | 2025-04-20 21:13 | XMS_ITS | Encounter Summary ---
Author Organization [facility] Address [address] [place] [address] Care Team Providers Care Bean Viner Name Role Phone Dara Tavera Primary Care Provider [phone] Encounter Details Date Type Department Care Team (Latest Contact Info) Description 01/14/2005 Outpatient Historical [facility]- [facility] [address] [place] [id number] Faiza Petersen MD NO ADDRESS ON FILE LUMBAGO (Primary Dx); NEURALGIA/NEURITIS NOS Social History Tobacco Use Types Packs/Day Years Used Date Smoking Tobacco: Never Assessed Comments Unknown Sex and Gender Information Value Date Recorded Sex Assigned at Not on file Legal Sex Female 5:22 AM PAPER CUTTER Gender Identity Not on file Sexual Orientation Not on file documented as of this encounter Plan of Treatment Not on file documented as of this encounter Visit Diagnoses Diagnosis Lumbago- Primary Neuralgia, neuritis, and radiculitis, unspecified documented in this encounter Additional Health Concerns Infection Onset Date Last Indicated Resolved Time VRE Comment:Urine 10/30/13 Resolved 11/04/2013 11/04/2013 8 10:33 AM PAPER CUTTER R/O COVID-19 12/25/2019 12/25/2019 12/26/2019 2:46 PM CDT R/O COVID-19 05/09/2020 05/09/2020 05/09/2020 12:1 7 PM PAPER CUTTER documented as of this encounter Care Teams Bean Viner Relationship Specialty Start Date End Date Dara Tavera FNP [address] [place] [phone] PCP - General NURSE PRACTITIONER 10/13/18 documented as of this encounter
--- OUTSIDE RECORDS SUMMARY | 2025-04-20 21:13 | XMS_ITS | Encounter Summary ---
Author Organization [facility] Address [address] [place] [address] Care Team Providers Care General Worker Name Role Phone Dara Tavera Primary Care Provider Encounter Details Date Type Department Care Team (Latest Contact Info) Description 05/20/2004 Outpatient [facility] [address] [place] [address] AMBULANCE, [facility] CONVULSIONS, OTHER (CMS/HCC) (Primary Dx) Social History Tobacco Use Types Packs/Day Years Used Date Smoking Tobacco: Never Assessed Comments Unknown Sex and Gender Information Value Date Recorded Sex Assigned at Not on file Legal Sex Female 5:22 AM CUSTOMER COMPLAINT SERVICE SUPERVISOR Gender Identity Not on file Sexual Orientation Not on file documented as of this encounter Plan of Treatment Not on file documented as of this encounter Visit Diagnoses Diagnosis Other convulsions- Primary documented in this encounter Additional Health Concerns Infection Onset Date Last Indicated Resolved Time VRE Comment:Urine 10/30/13 Resolved 11/04/2013 11/04/2013 8 10:33 AM CUSTOMER COMPLAINT SERVICE SUPERVISOR R/O COVID-19 12/25/2019 12/25/2019 12/26/2019 2:46 PM CDT R/O COVID-19 05/09/2020 05/09/2020 05/09/2020 12:1 7 PM CUSTOMER COMPLAINT SERVICE SUPERVISOR documented as of this encounter Care Teams General Worker Relationship Specialty Start Date End Date Dara Tavera FNP [address] [place] [address] PCP - General NURSE PRACTITIONER 10/13/18 documented as of this encounter
--- OUTSIDE RECORDS SUMMARY | 2025-04-20 21:13 | XMS_ITS | Encounter Summary ---
Author Organization [facility] Address [address] [place] [address] Care Team Providers Care Acetylene Plant Operator Name Role Phone Dara Tavera Primary Care Provider Encounter Details Date Type Department Care Team (Latest Contact Info) Description 07/24/2003 Outpatient Historical [facility] [place], [facility] ABRASION FOREARM (Primary Dx) Social History Tobacco Use Types Packs/Day Years Used Date Smoking Tobacco: Never Assessed Comments Unknown Sex and Gender Information Value Date Recorded Sex Assigned at Not on file Legal Sex Female 5:22 AM DIESEL ENGINE I PIPE FITTER Gender Identity Not on file Sexual Orientation [...] 10/30/13 Resolved 11/04/2013 11/04/2013 8 10:33 AM DIESEL ENGINE I PIPE FITTER R/O COVID-19 12/25/2019 12/25/2019 12/26/2019 2:46 PM CDT R/O COVID-19 05/09/2020 05/09/2020 05/09/2020 12:1 7 PM DIESEL ENGINE I PIPE FITTER documented as of this encounter Care Teams Acetylene Plant Operator Relationship Specialty Start Date End Date Dara Tavera FNP [address] [place] [address] PCP - General NURSE PRACTITIONER 10/13/18 documented as of this encounter
--- OUTSIDE RECORDS SUMMARY | 2025-04-20 21:13 | XMS_ITS | Encounter Summary ---
Author Organization [facility] Address [address] [place] [address] Care Team Providers Care Ballet Teacher Name Role Phone Dara Tavera Primary Care Provider [phone] Encounter Details Date Type Department Care Team (Latest Contact Info) Description 04/27/2003 Outpatient Historical [facility] Behavioral Clinical Services [address] [place] [address] Oniel Upton MD NO ADDRESS ON FILE SCHIZOAFFECTIVE-UNSP EC ([facility]/HCC) (Primary Dx) Social History Tobacco Use Types Packs/Day Years Used Date Smoking Tobacco: Never Assessed Comments Unknown Sex and Gender Information Value Date Recorded Sex Assigned at Not on file Legal Sex Female 5:22 AM AIRCRAFT PARTS ASSEMBLER Gender Identity Not on file Sexual Orientation Not on file documented as of this encounter Plan of Treatment Not on file documented as of this encounter Visit Diagnoses Diagnosis Schizoaffective disorder, unspecified condition ([facility]/HCC)- Primary Schizoaffective disorder, unspecified condition documented in this encounter Additional Health Concerns Infection Onset Date Last Indicated Resolved Time VRE Comment:Urine 10/30/13 Resolved 11/04/2013 11/04/2013 8 10:33 AM AIRCRAFT PARTS ASSEMBLER R/O COVID-19 12/25/2019 12/25/2019 12/26/2019 2:46 PM CDT R/O COVID-19 05/09/2020 05/09/2020 05/09/2020 12:1 7 PM AIRCRAFT PARTS ASSEMBLER documented as of this encounter Care Teams Ballet Teacher Relationship Specialty Start Date End Date Dara Tavera FNP [address] [place] [address] PCP - General NURSE PRACTITIONER 10/13/18 documented as of this encounter
--- OUTSIDE RECORDS SUMMARY | 2025-04-20 21:13 | XMS_ITS | Encounter Summary ---
Author Organization [facility] Address [address] [place] [address] Care Team Providers Care County Adviser Name Role Phone Dara Tavera Primary [...] on file Legal Sex Female 5:22 AM CARDIOGRAPHER Gender Identity Not on file Sexual Orientation Not on file documented as of this encounter Plan of Treatment Not on file documented as of this encounter Visit Diagnoses Not on filedocumented in this encounter Additional Health Concerns Infection Onset Date Last Indicated Resolved Time VRE Comment:Urine 10/30/13 Resolved 11/04/2013 11/04/2013 8 10:33 AM CARDIOGRAPHER R/O COVID-19 12/25/2019 12/25/2019 12/26/2019 2:46 PM CDT R/O COVID-19 05/09/2020 05/09/2020 05/09/2020 12:1 7 PM CARDIOGRAPHER documented as of this encounter Care Teams County Adviser Relationship Specialty Start Date End Date Dara Tavera FNP [address] [place] [address] PCP - General NURSE PRACTITIONER 10/13/18 documented as of this encounter
--- OUTSIDE RECORDS SUMMARY | 2025-04-20 21:13 | XMS_ITS | Encounter Summary ---
Author Organization [facility] Address [address] [place] [address] Care Team Providers Care Mechanical Engineering Coop Name Role Phone Dara Tavera Primary Care Provider Encounter Details Date Type Department Care Team (Latest Contact Info) Description 06/28/2003 Outpatient Historical [facility] Behavioral Clinical Services [address] [place] [address] Oniel Upton MD NO ADDRESS ON FILE SCHIZOAFFECTIVE-UNSP EC ([facility]/HCC) (Primary Dx) Social History Tobacco Use Types Packs/Day Years Used Date Smoking Tobacco: Never Assessed Comments Unknown Sex and Gender Information Value Date Recorded Sex Assigned at Not on file Legal Sex Female 5:22 AM CHIEF SCHOOL FINANCE OFFICER Gender Identity Not on file Sexual Orientation Not on file documented as of this encounter Plan of Treatment Not on file documented as of this encounter Visit Diagnoses Diagnosis Schizoaffective disorder, unspecified condition ([facility]/HCC)- Primary Schizoaffective disorder, unspecified condition documented in this encounter Additional Health Concerns Infection Onset Date Last Indicated Resolved Time VRE Comment:Urine 10/30/13 Resolved 11/04/2013 11/04/2013 8 10:33 AM CHIEF SCHOOL FINANCE OFFICER R/O COVID-19 12/25/2019 12/25/2019 12/26/2019 2:46 PM CDT R/O COVID-19 05/09/2020 05/09/2020 05/09/2020 12:1 7 PM CHIEF SCHOOL FINANCE OFFICER documented as of this encounter Care Teams Mechanical Engineering Coop Relationship Specialty Start Date End Date Dara Tavera FNP [address] [place] [address] PCP - General NURSE PRACTITIONER 10/13/18 documented as of this encounter
--- OUTSIDE RECORDS SUMMARY | 2025-04-20 21:13 | XMS_ITS | Encounter Summary ---
Author Organization [facility] Address [address] [place] [address] Care Team Providers Care Quill Machine Operator Name Role Phone Dara Tavera Primary Care Provider [phone] Encounter Details Date Type Department Care Team (Latest Contact Info) Description 05/16/2005 Outpatient Historical [facility] Pain Management Procedures [address] [place] [address] Prasda Carpenter MD NO ADDRESS ON FILE DISORDERS OF SACRUM (Primary Dx) Social History Tobacco Use Types Packs/Day Years Used Date Smoking Tobacco: Never Assessed Comments Unknown Sex and Gender Information Value Date Recorded Sex Assigned at Not on file Legal Sex Female 5:22 AM AUDIOLOGY ASSISTANT Gender Identity Not on file Sexual Orientation Not on file documented as of this encounter Plan of Treatment Not on file documented as of this encounter Visit Diagnoses Diagnosis Disorders of sacrum- Primary documented in this encounter Additional Health Concerns Infection Onset Date Last Indicated Resolved Time VRE Comment:Urine 10/30/13 Resolved 11/04/2013 11/04/2013 8 10:33 AM AUDIOLOGY ASSISTANT R/O COVID-19 12/25/2019 12/25/2019 12/26/2019 2:46 PM CDT R/O COVID-19 05/09/2020 05/09/2020 05/09/2020 12:1 7 PM AUDIOLOGY ASSISTANT documented as of this encounter Care Teams Quill Machine Operator Relationship Specialty Start Date End Date Dara Tavera FNP [address] [place] [address] PCP - General NURSE PRACTITIONER 10/13/18 documented as of this encounter
--- OUTSIDE RECORDS SUMMARY | 2025-04-20 21:13 | XMS_ITS | Encounter Summary ---
Author Organization [facility] Address [address] [place] [address] Care Team Providers Care Oracle E Business Developer Name Role Phone Dara Tavera Primary Care Provider Encounter Details Date Type Department Care Team (Latest Contact Info) Description 05/16/2005 Outpatient Historical [facility] Pain Management- [place] [address] [place] [address] Prasad Carpenter MD NO ADDRESS ON FILE DISORDERS OF SACRUM (Primary Dx); LUMBAGO Social History Tobacco Use Types Packs/Day Years Used Date Smoking Tobacco: Never Assessed Comments Unknown Sex and Gender Information Value Date Recorded Sex Assigned at Not on file Legal Sex Female 5:22 AM VERIFYING MACHINE OPERATOR Gender Identity Not on file Sexual Orientation Not on file documented as of this encounter Plan of Treatment Not on file documented as of this encounter Visit Diagnoses Diagnosis Disorders of sacrum- Primary Lumbago documented in this encounter Additional Health Concerns Infection Onset Date Last Indicated Resolved Time VRE Comment:Urine 10/30/13 Resolved 11/04/2013 11/04/2013 8 10:33 AM VERIFYING MACHINE OPERATOR R/O COVID-19 12/25/2019 12/25/2019 12/26/2019 2:46 PM CDT R/O COVID-19 05/09/2020 05/09/2020 05/09/2020 12:1 7 PM VERIFYING MACHINE OPERATOR documented as of this encounter Care Teams Oracle E Business Developer Relationship Specialty Start Date End Date Dara Tavera FNP [address] [place] [address] PCP - General NURSE PRACTITIONER 10/13/18 documented as of this encounter
--- OUTSIDE RECORDS SUMMARY | 2025-04-20 21:13 | XMS_ITS | Encounter Summary ---
Author Organization [facility] Address [address] Attn: [place] [address] Care Team Providers Care Poultry Hatchery Supervisor Name Role Phone Dara Tavera Primary Care Provider Encounter Details Date Type Department Care Team ([facility] Contact Info) Description 02/13/2003 Inpatient Historical Oniel Upton MD NO ADDRESS ON FILE ACUTE SCHIZOPHRENIA-CHR (CMS/HCC) (Primary Dx) Social History Tobacco Use Types Packs/Day Years Used Date Smoking Tobacco: Never Assessed Comments Unknown Sex and Gender Information Value Date Recorded Sex Assigned at Not on file Legal Sex Female 5:22 AM SALSA DANCE INSTRUCTOR Gender Identity Not on file Sexual Orientation Not on file documented as of this encounter Plan of Treatment Not on file documented as of this encounter Visit Diagnoses Diagnosis Schizophreniform disorder, chronic condition (CMS/HCC)- Primary Schizophreniform disorder, chronic condition documented in this encounter Additional Health Concerns Infection Onset Date Last Indicated Resolved Time VRE Comment:Urine 10/30/13 Resolved 11/04/2013 11/04/2013 8 10:33 AM SALSA DANCE INSTRUCTOR R/O COVID-19 12/25/2019 12/25/2019 12/26/2019 2:46 PM CDT R/O COVID-19 05/09/2020 05/09/2020 05/09/2020 12:1 7 PM SALSA DANCE INSTRUCTOR documented as of this encounter Care Teams Poultry Hatchery Supervisor Relationship Specialty Start Date End Date Dara Tavera FNP [address] [place] [address] PCP - General NURSE PRACTITIONER 10/13/18 documented as of this encounter
--- OUTSIDE RECORDS SUMMARY | 2025-04-20 21:13 | XMS_ITS | Encounter Summary ---
Author Organization [facility] Address [address] [place] [address] Care Team Providers Care Global Compensation Analyst Name Role Phone Dara Tavera Primary Care Provider Encounter Details Date Type Department Care Team (Latest Contact Info) Description 11/08/2002 Outpatient Historical [facility] Operating Room [address] [place] [address] Dmitri Vega MD [address] [place] [address] BENIGN NEOPLASM TONGUE (Primary Dx) Social History Tobacco Use Types Packs/Day Years Used Date Smoking Tobacco: Never Assessed Comments Unknown Sex and Gender Information Value Date Recorded Sex Assigned at Not on file Legal Sex Female 5:22 AM GOLF CART MAKER Gender Identity Not on file Sexual Orientation Not on file documented as of this encounter Plan of Treatment Not on file documented as of this encounter Visit Diagnoses Diagnosis Benign neoplasm of tongue- Primary documented in this encounter Additional Health Concerns Infection Onset Date Last Indicated Resolved Time VRE Comment:Urine 10/30/13 Resolved 11/04/2013 11/04/2013 8 10:33 AM GOLF CART MAKER R/O COVID-19 12/25/2019 12/25/2019 12/26/2019 2:46 PM CDT R/O COVID-19 05/09/2020 05/09/2020 05/09/2020 12:1 7 PM GOLF CART MAKER documented as of this encounter Care Teams Global Compensation Analyst Relationship Specialty Start Date End Date Dara Tavera FNP [address] [place] [phone] PCP - General NURSE PRACTITIONER 10/13/18 documented as of this encounter
--- OUTSIDE RECORDS SUMMARY | 2025-04-20 21:13 | XMS_ITS | Encounter Summary ---
Author Organization [facility] Address [address] [place] [address] Care Team Providers Care Butcher Apprentice Name Role Phone Ayse Dara BERNSTEIN Primary Care Provider [phone] Encounter Details Date Type Department Care Team (Latest Contact Info) Description 11/18/2002 Outpatient [facility] Ear, Nose and Th[facility] [place] [address] Dmitri Vega MD [address] [place] [address] SURGERY FOLLOWUP, UNSPEC (Primary Dx) Social History Tobacco Use Types Packs/Day Years Used Date Smoking Tobacco: Never Assessed Comments Unknown Sex and Gender Information Value Date Recorded Sex Assigned at Not on file Legal Sex Female 5:22 AM SENIOR POWER SCHEDULER Gender Identity Not on file Sexual Orientation Not on file documented as of this encounter Plan of Treatment Not on file documented as of this encounter Visit Diagnoses Diagnosis Follow-up examination, following unspecified surgery- Primary documented in this encounter Additional Health Concerns Infection Onset Date Last Indicated Resolved Time VRE Comment:Urine 10/30/13 Resolved 11/04/2013 11/04/2013 8 10:33 AM SENIOR POWER SCHEDULER R/O COVID-19 12/25/2019 12/25/2019 12/26/2019 2:46 PM CDT R/O COVID-19 05/09/2020 05/09/2020 05/09/2020 12:1 7 PM SENIOR POWER SCHEDULER documented as of this encounter Care Teams Butcher Apprentice Relationship Specialty Start Date End Date Dara Tavera FNP [address] [place] [phone] PCP - General NURSE PRACTITIONER 10/13/18 documented as of this encounter
--- OUTSIDE RECORDS SUMMARY | 2025-04-20 21:13 | XMS_ITS | Encounter Summary ---
Author Organization [facility] Address [address] [place] [address] Care Team Providers Care Piano Technician Name Role Phone Dara Tavera Primary Care Provider Encounter Details Date Type Department Care Team (Latest Contact Info) Description 07/02/2003 Outpatient Historical [facility] Imaging Services [address] [place] [address] Hossein Blair MD NO ADDRESS ON FILE RENAL & URETERAL DIS NOS (Primary Dx) Social History Tobacco Use Types Packs/Day Years Used Date Smoking Tobacco: Never Assessed Comments Unknown Sex and Gender Information Value Date Recorded Sex Assigned at Not on file Legal Sex Female 5:22 AM BAD WORK GATHERER Gender Identity Not on file Sexual Orientation Not on file documented as of this encounter Plan of Treatment Not on file documented as of this encounter Visit Diagnoses Diagnosis Unspecified disorder of kidney and ureter- Primary documented in this encounter Additional Health Concerns Infection Onset Date Last Indicated Resolved Time VRE Comment:Urine 10/30/13 Resolved 11/04/2013 11/04/2013 10:33 AM BAD WORK GATHERER R/O COVID-19 12/25/2019 12/25/2019 12/26/2019 2:46 PM CDT R/O COVID-19 05/09/2020 05/09/2020 05/09/2020 12:1 7 PM BAD WORK GATHERER documented as of this encounter Care Teams Piano Technician Relationship Specialty Start Date End Date Dara Tavera FNP [address] [place] [address] PCP - General NURSE PRACTITIONER 10/13/18 documented as of this encounter
--- OUTSIDE RECORDS SUMMARY | 2025-04-20 21:13 | XMS_ITS | Encounter Summary ---
Author Organization [facility] Address [address] [place] [address] Care Team Providers Care Live In Housekeeper Nanny Name Role Phone Dara Tavera FINAL INSPECTOR MOTORCYLES Primary Care Provider [phone] Encounter Details Date Type Department Care Team (Latest Contact Info) Description 07/29/2003 Outpatient Historical [facility] Behavioral Clinical Services [address] [place] [address] Hood Kerr Jr., MD [address] [place] [address] SCHIZOAFFECTIVE-UNSP EC (CMS/HCC) (Primary Dx) Social History Tobacco Use Types Packs/Day Years Used Date Smoking Tobacco: Never Assessed Comments Unknown Sex and Gender Information Value Date Recorded Sex Assigned at Not on file Legal Sex Female 5:22 AM WOOD LATHE OPERATOR Gender Identity Not on file Sexual Orientation Not on file documented as of this encounter Plan of Treatment Not on file documented as of this encounter Visit Diagnoses Diagnosis Schizoaffective disorder, unspecified condition (CMS/HCC)- Primary Schizoaffective disorder, unspecified condition documented in this encounter Additional Health Concerns Infection Onset Date Last Indicated Resolved Time VRE Comment:Urine 10/30/13 Resolved 11/04/2013 11/04/2013 8 10:33 AM WOOD LATHE OPERATOR R/O COVID-19 12/25/2019 12/25/2019 12/26/2019 2:46 PM CDT R/O COVID-19 05/09/2020 05/09/2020 05/09/2020 12:1 7 PM WOOD LATHE OPERATOR documented as of this encounter Care Teams Live In Housekeeper Nanny Relationship Specialty Start Date End Date Dara Tavera FNP [address] [place] [phone] PCP - General NURSE PRACTITIONER 10/13/18 documented as of this encounter
--- OUTSIDE RECORDS SUMMARY | 2025-04-20 21:13 | XMS_ITS | Encounter Summary ---
Author Organization [facility] Address [address] [place] [address] Care Team Providers Care Chlorine Cell Tender Name Role Phone Dara Tavera Primary Care Provider Encounter Details Date Type Department Care Team (Latest Contact Info) Description 03/07/2005 Outpatient Historical [facility] Pain Management Procedures [address] [place] [address] Prasad Carpenter MD NO ADDRESS ON FILE LUMBOSACRAL NEURITIS NOS (Primary Dx) Social History Tobacco Use Types Packs/Day Years Used Date Smoking Tobacco: Never Assessed Comments Unknown Sex and Gender Information Value Date Recorded Sex Assigned at Not on file Legal Sex Female 5:22 AM BUS REPAIR SUPERVISOR Gender Identity Not on file Sexual Orientation Not on file documented as of this encounter Plan of Treatment Not on file documented as of this encounter Visit Diagnoses Diagnosis Thoracic or lumbosacral neuritis or radiculitis, unspecified- Primary documented in this encounter Additional Health Concerns Infection Onset Date Last Indicated Resolved Time VRE Comment:Urine 10/30/13 Resolved 11/04/2013 11/04/2013 8 10:33 AM BUS REPAIR SUPERVISOR R/O COVID-19 12/25/2019 12/25/2019 12/26/2019 2:46 PM CDT R/O COVID-19 05/09/2020 05/09/2020 05/09/2020 12:1 7 PM BUS REPAIR SUPERVISOR documented as of this encounter Care Teams Chlorine Cell Tender Relationship Specialty Start Date End Date Dara Tavera FNP [address] [place] [address] PCP - General NURSE PRACTITIONER 10/13/18 documented as of this encounter
--- OUTSIDE RECORDS SUMMARY | 2025-04-20 21:13 | XMS_ITS | Encounter Summary ---
Author Organization [facility] Address [address] [place] [address] Care Team Providers Care Audit Analyst Name Role Phone Dara Tavera Primary Care Provider Encounter Details Date Type Department Care Team (Latest Contact Info) Description 07/17/2003 Outpatient Historical [facility] Urology- [address] Entrance B, 3rd [place] [address] Hossein Blair MD NO ADDRESS ON FILE URGE & STRESS MIXED INCONTINENCE (Primary Dx); FB bladder/urethra Social History Tobacco Use Types Packs/Day Years Used Date Smoking Tobacco: Never Assessed Comments Unknown Sex and Gender Information Value Date Recorded Sex Assigned at Not on file Legal Sex Female 5:22 AM SERVICENOW ADMINISTRATOR Gender Identity Not on file Sexual [...] 10/30/13 Resolved 11/04/2013 11/04/2013 8 10:33 AM SERVICENOW ADMINISTRATOR R/O COVID-19 12/25/2019 12/25/2019 12/26/2019 2:46 PM CDT R/O COVID-19 05/09/2020 05/09/2020 05/09/2020 12:1 7 PM SERVICENOW ADMINISTRATOR documented as of this encounter Care Teams Audit Analyst Relationship Specialty Start Date End Date Dara Tavera FNP [address] [place] [phone] PCP - General NURSE PRACTITIONER 10/13/18 documented as of this encounter
--- OUTSIDE RECORDS SUMMARY | 2025-04-20 21:13 | XMS_ITS | Encounter Summary ---
Author Organization [facility] Address [address] [place] [address] Care Team Providers Care Oral Pathologist Name Role Phone Dara Tavera AUTOMOTIVE PARTS ADVISOR Primary Care Provider [phone] Encounter Details Date Type Department Care Team (Latest Contact Info) Description 11/03/[address] [facility] Behavioral Clinical Services [address] [place] [address] Hood Kerr Jr., MD [address] [place] [address] SCHIZOAFFECTIVE-UNSP EC (CMS/HCC) (Primary Dx) Social History Tobacco Use Types Packs/Day Years Used Date Smoking Tobacco: Never Assessed Comments Unknown Sex and Gender Information Value Date Recorded Sex Assigned at Not on file Legal Sex Female 5:22 AM ASSOCIATE PROFESSOR OF CHEMISTRY Gender Identity Not on file Sexual Orientation [...] 11/04/2013 8 10:33 AM ASSOCIATE PROFESSOR OF CHEMISTRY R/O COVID-19 12/25/2019 12/25/2019 12/26/2019 2:46 PM CDT R/O COVID-19 05/09/2020 05/09/2020 05/09/2020 12:1 7 PM ASSOCIATE PROFESSOR OF CHEMISTRY documented as of this encounter Care Teams Oral Pathologist Relationship Specialty Start Date End Date Dara Tavera FNP [address] [place] [phone] PCP - General NURSE PRACTITIONER 10/13/18 documented as of this encounter
--- OUTSIDE RECORDS SUMMARY | 2025-04-20 21:13 | XMS_ITS | Encounter Summary ---
Author Organization [facility] Address [address] [place] [address] Care Team Providers Care Django Developer Name Role Phone Dara Tavera Primary [...] file Legal Sex Female 5:22 AM DIRECTOR BUSINESS Gender Identity Not on file Sexual Orientation Not on file documented as of this encounter Plan of Treatment Not on file documented as of this encounter Visit Diagnoses Not on filedocumented in this encounter Additional Health Concerns Infection Onset Date Last Indicated Resolved Time VRE Comment:Urine 10/30/13 Resolved 11/04/2013 11/04/2013 8 10:33 AM DIRECTOR BUSINESS R/O COVID-19 12/25/2019 12/25/2019 12/26/2019 2:46 PM CDT R/O COVID-19 05/09/2020 05/09/2020 05/09/2020 12:1 7 PM DIRECTOR BUSINESS documented as of this encounter Care Teams Django Developer Relationship Specialty Start Date End Date Dara Tavera FNP [address] [place] [address] PCP - General NURSE PRACTITIONER 10/13/18 documented as of this encounter
--- OUTSIDE RECORDS SUMMARY | 2025-04-20 21:13 | XMS_ITS | Encounter Summary ---
Author Organization [facility] Address [address] [place] [address] Care Team Providers Care Elevating Grader Operator Name Role Phone Dara Tavera Primary Care Provider Encounter Details Date Type Department Care Team (Late st Contact Info) Description 05/30/2005 Outpatient Historical [facility] Pain Management Procedures [address] [place] [address] Prasad Carpenter MD NO ADDRESS ON FILE Social History Tobacco Use Types Packs/Day Years Used Date Smoking Tobacco: Never Assessed Comments Unknown Sex and Gender Information Value Date Recorded Sex Assigned at Not on file Legal Sex Female 5:22 AM ROTARY SLICING MACHINE OPERATOR Gender Identity Not on file Sexual Orientation Not on file documented as of this encounter Plan of Treatment Not on file documented as of this encounter Visit Diagnoses Not on filedocumented in this encounter Additional Health Concerns Infection Onset Date Last Indicated Resolved Time VRE Comment:Urine 10/30/13 Resolved 11/04/2013 11/04/2013 8 10:33 AM ROTARY SLICING MACHINE OPERATOR R/O COVID-19 12/25/2019 12/25/2019 12/26/2019 2:46 PM CDT R/O COVID-19 05/09/2020 05/09/2020 05/09/2020 12:1 7 PM ROTARY SLICING MACHINE OPERATOR documented as of this encounter Care Teams Elevating Grader Operator Relationship Specialty Start Date End Date Dara Tavera FNP [address] [place] [address] PCP - General NURSE PRACTITIONER 10/13/18 documented as of this encounter
--- OUTSIDE RECORDS SUMMARY | 2025-04-20 21:13 | XMS_ITS | Encounter Summary ---
Author Organization [facility] Address [address] [place] [address] Care Team Providers Care Balloon Seller Name Role Phone Dara Tavrea CLINICAL CARE LEADER Primary Care Provider Encounter Details Date Type Department Care Team (Latest Contact Info) Description 02/10/2005 Outpatient Historical [facility] [place] [address] [facility] [address] [place] [address] Faiza Petersen MD NO ADDRESS ON FILE ALLERGIC RHINITIS NOS (Primary Dx); HEADACHE; AFTERCARE SENIOR CARE USE MEDICATN; CONVULSIONS NEC ([facility] Social History Tobacco Use Types Packs/Day Years Used Date Smoking Tobacco: Never Assessed Comments Unknown Sex and Gender Information Value Date Recorded Sex Assigned at Not on file Legal Sex Female 5:22 AM REPOSSESSION AGENT Gender Identity Not on file Sexual [...] 10/30/13 Resolved 11/04/2013 11/04/2013 8 10:33 AM REPOSSESSION AGENT R/O COVID-19 12/25/2019 12/25/2019 12/26/2019 2:46 PM CDT R/O COVID-19 05/09/2020 05/09/2020 05/09/2020 12:1 7 PM REPOSSESSION AGENT documented as of this encounter Care Teams Balloon Seller Relationship Specialty Start Date End Date Dara Tavera FNP [address] [place] [phone] PCP - General NURSE PRACTITIONER 10/13/18 documented as of this encounter
--- OUTSIDE RECORDS SUMMARY | 2025-04-20 21:13 | XMS_ITS | Encounter Summary ---
Author Organization [facility] Address [address] [place] [address] Care Team Providers Care Revenue Accountant Name Role Phone Dara Tavera Primary Care Provider Encounter Details Date Type Department Care Team (Late st Contact Info) Description 05/30/2005 Outpatient [facility] [address] [place] [address] Social History Tobacco Use Types Packs/Day Years Used Date Smoking Tobacco: Never Assessed Comments Unknown Sex and Gender Information Value Date Recorded Sex Assigned at Not on file Legal Sex Female 5:22 AM RADIOLOGIC TECHNOLOGY INSTRUCTOR Gender Identity Not on file Sexual Orientation Not on file documented as of this encounter Plan of Treatment Not on file documented as of this encounter Visit Diagnoses Not on filedocumented in this encounter Additional Health Concerns Infection Onset Date Last Indicated Resolved Time VRE Comment:Urine 10/30/13 Resolved 11/04/2013 11/04/2013 8 10:33 AM RADIOLOGIC TECHNOLOGY INSTRUCTOR R/O COVID-19 12/25/2019 12/25/2019 12/26/2019 2:46 PM CDT R/O COVID-19 05/09/2020 05/09/2020 05/09/2020 12:1 7 PM RADIOLOGIC TECHNOLOGY INSTRUCTOR documented as of this encounter Care Teams Revenue Accountant Relationship Specialty Start Date End Date Dara Tavera FNP [address] [place] [phone] PCP - General NURSE PRACTITIONER 10/13/18 documented as of this encounter
--- OUTSIDE RECORDS SUMMARY | 2025-04-20 21:13 | XMS_ITS | Encounter Summary ---
Author Organization [facility] Address [address] [place] [address] Care Team Providers Care Technical Associate Name Role Phone Dara Tavera Primary Care Provider [phone] Encounter Details Date Type Department Care Team (Latest Contact Info) Description 12/09/2004 Outpatient Historical [facility] Family Medicine [place] [address] [facility] [address] [place] [address] Faiza Petersen MD NO ADDRESS ON FILE URIN TRACT INFECTION NOS (Primary Dx); ABDOMINAL PAIN UNSPEC SITE; ABDOMINAL TENDERNESS UNSP SITE Social History Tobacco Use Types Packs/Day Years Used Date Smoking Tobacco: Never Assessed Comments Unknown Sex and Gender Information Value Date Recorded Sex Assigned at Not on file Legal Sex Female 5:22 AM WASH TUB MACHINE OPERATOR Gender Identity Not on file [...] 10/30/13 Resolved 11/04/2013 11/04/2013 8 10:33 AM WASH TUB MACHINE OPERATOR R/O COVID-19 12/25/2019 12/25/2019 12/26/2019 2:46 PM CDT R/O COVID-19 05/09/2020 05/09/2020 05/09/2020 12:1 7 PM WASH TUB MACHINE OPERATOR documented as of this encounter Care Teams Technical Associate Relationship Specialty Start Date End Date Dara Tavera FNP [address] [place] [phone] PCP - General NURSE PRACTITIONER 10/13/18 documented as of this encounter
--- OUTSIDE RECORDS SUMMARY | 2025-04-20 21:13 | XMS_ITS | Encounter Summary ---
Author Organization [facility] Address [address] [place] [address] Care Team Providers Care Blow Molding Machine Tender Name Role Phone Dara Tavera [facility] Primary Care Provider [phone] Encounter Details Date Type Department Care Team (Latest Contact Info) Description 04/28/2005 Outpatient Historical [facility] Pain Management- [place] [address] [place] [address] Krissy Pickard FNP [address] [place], [place] [address] [address] [place] [address] LUMBAGO (Primary Dx); LUMBOSACRAL NEURITIS NOS; Enthesopathy of hip Social History Tobacco Use Types Packs/Day Years Used Date Smoking Tobacco: Never Assessed Comments Unknown Sex and Gender Information Value Date Recorded Sex Assigned at Not on file Legal Sex Female 5:22 AM SENIOR TEST ENGINEER Gender Identity Not on file Sexual [...] Resolved 11/04/2013 11/04/2013 8 10:33 AM SENIOR TEST ENGINEER R/O COVID-19 12/25/2019 12/25/2019 12/26/2019 2:46 PM CDT R/O COVID-19 05/09/2020 05/09/2020 05/09/2020 12:1 7 PM SENIOR TEST ENGINEER documented as of this encounter Care Teams Blow Molding Machine Tender Relationship Specialty Start Date End Date Dara Tavera FNP [address] [place] [address] PCP - General NURSE PRACTITIONER 10/13/18 documented as of this encounter
--- OUTSIDE RECORDS SUMMARY | 2025-04-20 21:13 | XMS_ITS | Encounter Summary ---
Author Organization [facility] Address [address] [place] [address] Care Team Providers Care Registered Sales Assistant Name Role Phone Dara Tavera SECRETARY BOOK KEEPER Primary Care Provider Encounter Details Date Type Department Care Team (Latest Contact Info) Description 11/05/2002 Outpatient [facility] Imaging and Laboratory Services [address] [place] [address] Raúl Osullivan MD [address] [place], [place] [address] OTHER FUNCTIONAL DISORDER BLADDER (Primary Dx) Social History Tobacco Use Types Packs/Day Years Used Date Smoking Tobacco: Never Assessed Comments Unknown Sex and Gender Information Value Date Recorded Sex Assigned at Not on file Legal Sex Female 5:22 AM SECURITY TRAINER Gender Identity Not on file Sexual Orientation Not on file documented as of this encounter Plan of Treatment Not on file documented as of this encounter Visit Diagnoses Diagnosis Other functional disorder of bladder- Primary documented in this encounter Additional Health Concerns Infection Onset Date Last Indicated Resolved Time VRE Comment:Urine 10/30/13 Resolved 11/04/2013 11/04/2013 8 10:33 AM SECURITY TRAINER R/O COVID-19 12/25/2019 12/25/2019 12/26/2019 2:46 PM CDT R/O COVID-19 05/09/2020 05/09/2020 05/09/2020 12:1 7 PM SECURITY TRAINER documented as of this encounter Care Teams Registered Sales Assistant Relationship Specialty Start Date End Date Dara Tavera FNP [address] [place] [phone] PCP - General NURSE PRACTITIONER 10/13/18 documented as of this encounter
--- OUTSIDE RECORDS SUMMARY | 2025-04-20 21:13 | XMS_ITS | Encounter Summary ---
Author Organization [facility] Address [address] [place] [address] Care Team Providers Care Relay Assembler Name Role Phone Dara Tavera POWER SHEAR OPERATOR Primary Care Provider Encounter Details Date Type Department Care Team (Latest Contact Info) Description 12/04/[address] [facility] Behavioral Clinical Services [address] [place] [address] Hood Kerr Jr., MD [address] [place] [address] SCHIZOAFFECTIVE-UNSP EC (CMS/HCC) (Primary Dx) Social History Tobacco Use Types Packs/Day Years Used Date Smoking Tobacco: Never Assessed Comments Unknown Sex and Gender Information Value Date Recorded Sex Assigned at Not on file Legal Sex Female 5:22 AM BULL BUCKER Gender Identity Not on file Sexual Orientation Not on file documented as of this encounter Plan of Treatment Not on file documented as of this encounter Visit Diagnoses Diagnosis Schizoaffective disorder, unspecified condition (CMS/HCC)- Primary Schizoaffective disorder, unspecified condition documented in this encounter Additional Health Concerns Infection Onset Date Last Indicated Resolved Time VRE Comment:Urine 10/30/13 Resolved 11/04/2013 11/04/2013 8 10:33 AM BULL BUCKER R/O COVID-19 12/25/2019 12/25/2019 12/26/2019 2:46 PM CDT R/O COVID-19 05/09/2020 05/09/2020 05/09/2020 12:1 7 PM BULL BUCKER documented as of this encounter Care Teams Relay Assembler Relationship Specialty Start Date End Date Dara Tavera FNP [address] [place] [address] PCP - General NURSE PRACTITIONER 10/13/18 documented as of this encounter
--- OUTSIDE RECORDS SUMMARY | 2025-04-20 21:13 | XMS_ITS | Encounter Summary ---
Author Organization [facility] Address [address] [place] [address] Care Team Providers Care Computer Console Operator Name Role Phone Dara Tavera Primary Care Provider [phone] Encounter Details Date Type Department Care Team (Latest Contact Info) Description 03/27/2003 Outpatient Historical [facility] Behavioral Clinical Services [address] [place] [address] Oniel Upton MD NO ADDRESS ON FILE SCHIZOAFFECTIVE-UNSP EC ([facility]/HCC) (Primary Dx) Social History Tobacco Use Types Packs/Day Years Used Date Smoking Tobacco: Never Assessed Comments Unknown Sex and Gender Information Value Date Recorded Sex Assigned at Not on file Legal Sex Female 5:22 AM INGOT HEADER Gender Identity Not on file Sexual Orientation Not on file documented as of this encounter Plan of Treatment Not on file documented as of this encounter Visit Diagnoses Diagnosis Schizoaffective disorder, unspecified condition ([facility]/HCC)- Primary Schizoaffective disorder, unspecified condition documented in this encounter Additional Health Concerns Infection Onset Date Last Indicated Resolved Time VRE Comment:Urine 10/30/13 Resolved 11/04/2013 11/04/2013 8 10:33 AM INGOT HEADER R/O COVID-19 12/25/2019 12/25/2019 12/26/2019 2:46 PM CDT R/O COVID-19 05/09/2020 05/09/2020 05/09/2020 12:1 7 PM INGOT HEADER documented as of this encounter Care Teams Computer Console Operator Relationship Specialty Start Date End Date Dara Tavera FNP [address] [place] [phone] PCP - General NURSE PRACTITIONER 10/13/18 documented as of this encounter
--- OUTSIDE RECORDS SUMMARY | 2025-04-20 21:13 | XMS_ITS | Encounter Summary ---
Author Organization [facility] Address [address] [place] [address] Care Team Providers Care Site Technician Name Role Phone Dara Tavera Primary Care Provider Encounter Details Date Type Department Care Team (Latest Contact Info) Description 05/28/2003 Outpatient [facility] Behavioral Clinical Services [address] [place] [address] Oniel Upton MD NO ADDRESS ON FILE SCHIZOAFFECTIVE-UNSP EC ([facility]/HCC) (Primary Dx) Social History Tobacco Use Types Packs/Day Years Used Date Smoking Tobacco: Never Assessed Comments Unknown Sex and Gender Information Value Date Recorded Sex Assigned at Not on file Legal Sex Female 5:22 AM POWER ORIGINATOR Gender Identity Not on file Sexual Orientation Not on file documented as of this encounter Plan of Treatment Not on file documented as of this encounter Visit Diagnoses Diagnosis Schizoaffective disorder, unspecified condition ([facility]/HCC)- Primary Schizoaffective disorder, unspecified condition documented in this encounter Additional Health Concerns Infection Onset Date Last Indicated Resolved Time VRE Comment:Urine 10/30/13 Resolved 11/04/2013 11/04/2013 8 10:33 AM POWER ORIGINATOR R/O COVID-19 12/25/2019 12/25/2019 12/26/2019 2:46 PM CDT R/O COVID-19 05/09/2020 05/09/2020 05/09/2020 12:1 7 PM POWER ORIGINATOR documented as of this encounter Care Teams Site Technician Relationship Specialty Start Date End Date Draa Tavera FNP [address] [place] [phone] PCP - General NURSE PRACTITIONER 10/13/18 documented as of this encounter
--- OUTSIDE RECORDS SUMMARY | 2025-04-20 21:13 | XMS_ITS | Encounter Summary ---
Author Organization [facility] Address [address] [place] [address] Care Team Providers Care Head End Desizing Machine Operator Name Role Phone Dara Tavera Primary Care Provider Encounter Details Date Type Department Care Team (Latest Contact Info) Description 02/24/2003 Outpatient Historical [facility] Behavioral Clinical Services [address] [place] [address] Oniel Upton MD NO ADDRESS ON FILE SCHIZOAFFECTIVE-UNSP EC ([facility]/HCC) (Primary Dx) Social History Tobacco Use Types Packs/Day Years Used Date Smoking Tobacco: Never Assessed Comments Unknown Sex and Gender Information Value Date Recorded Sex Assigned at Not on file Legal Sex Female 5:22 AM STITCHING DEPARTMENT SUPERVISOR Gender Identity Not on file Sexual Orientation Not on file documented as of this encounter Plan of Treatment Not on file documented as of this encounter Visit Diagnoses Diagnosis Schizoaffective disorder, unspecified condition ([facility]/HCC)- Primary Schizoaffective disorder, unspecified condition documented in this encounter Additional Health Concerns Infection Onset Date Last Indicated Resolved Time VRE Comment:Urine 10/30/13 Resolved 11/04/2013 11/04/2013 8 10:33 AM STITCHING DEPARTMENT SUPERVISOR R/O COVID-19 12/25/2019 12/25/2019 12/26/2019 2:46 PM CDT R/O COVID-19 05/09/2020 05/09/2020 05/09/2020 12:1 7 PM STITCHING DEPARTMENT SUPERVISOR documented as of this encounter Care Teams Head End Desizing Machine Operator Relationship Specialty Start Date End Date Dara Tavera FNP [address] [place] [phone] PCP - General NURSE PRACTITIONER 10/13/18 documented as of this encounter
--- OUTSIDE RECORDS SUMMARY | 2025-04-20 21:13 | XMS_ITS | Encounter Summary ---
Author Organization [facility] Address [address] [place] [address] Care Team Providers Care Triple Drum Operator Name Role Phone Dara Tavera Primary Care Provider Encounter Details Date Type Department Care Team (Latest Contact Info) Description 10/22/2004 Outpatient Historical [facility] Medicine [place] [address] [facility] [address] [place] [address] Ryan Don NP NO ADDRESS ON FILE LUMP OR MASS IN BREAST (Primary Dx) Social History Tobacco Use Types Packs/Day Years Used Date Smoking Tobacco: Never Assessed Comments Unknown Sex and Gender Information Value Date Recorded Sex Assigned at Not on file Legal Sex Female 5:22 AM PLATE PUT IN WORKER Gender Identity Not on file Sexual Orientation Not on file documented as of this encounter Plan of Treatment Not on file documented as of this encounter Visit Diagnoses Diagnosis Lump or mass in breast- Primary documented in this encounter Additional Health Concerns Infection Onset Date Last Indicated Resolved Time VRE Comment:Urine 10/30/13 Resolved 11/04/2013 11/04/2013 8 10:33 AM PLATE PUT IN WORKER R/O COVID-19 12/25/2019 12/25/2019 12/26/2019 2:46 PM CDT R/O COVID-19 05/09/2020 05/09/2020 05/09/2020 12:1 7 PM PLATE PUT IN WORKER documented as of this encounter Care Teams Triple Drum Operator Relationship Specialty Start Date End Date Dara Tavera FNP [address] [place] [address] PCP - General NURSE PRACTITIONER 10/13/18 documented as of this encounter
--- OUTSIDE RECORDS SUMMARY | 2025-04-20 21:13 | XMS_ITS | Encounter Summary ---
Author Organization [facility] Address [address] [place] [address] Care Team Providers Care Cellar Supervisor Name Role Phone Dara Tavera Primary Care Provider Encounter Details Date Type Department Care Team (Latest Contact Info) Description 03/21/2005 Outpatient Historical [facility] [address] [place] [address] AMBULANCE, [facility] DEPRESSIVE DISORDER NEC (Primary Dx) Social History Tobacco Use Types Packs/Day Years Used Date Smoking Tobacco: Never Assessed Comments Unknown Sex and Gender Information Value Date Recorded Sex Assigned at Not on file Legal Sex Female 5:22 AM SPRAY PAINTER Gender Identity Not on file Sexual Orientation Not on file documented as of this encounter Plan of Treatment Not on file documented as of this encounter Visit Diagnoses Diagnosis Depressive disorder, not elsewhere classified- Primary documented in this encounter Additional Health Concerns Infection Onset Date Last Indicated Resolved Time VRE Comment:Urine 10/30/13 Resolved 11/04/2013 11/04/2013 8 10:33 AM SPRAY PAINTER R/O COVID-19 12/25/2019 12/25/2019 12/26/2019 2:46 PM CDT R/O COVID-19 05/09/2020 05/09/2020 05/09/2020 12:1 7 PM SPRAY PAINTER documented as of this encounter Care Teams Cellar Supervisor Relationship Specialty Start Date End Date Dara Tavera FNP [address] [place] [phone] PCP - General NURSE PRACTITIONER 10/13/18 documented as of this encounter
--- OUTSIDE RECORDS SUMMARY | 2025-04-20 21:13 | XMS_ITS | Encounter Summary ---
Author Organization [facility] Address [address] [place] [address] Care Team Providers Care Center Director Lead Teacher Name Role Phone Dara Tavera Primary Care Provider Encounter Details Date Type Department Care Team (Latest Contact Info) Description 01/25/2005 Outpatient [facility] Oral and Maxillo Surgery[address] [place] [address] Raleigh Bagley, PhD NO ADDRESS ON FILE Tooth eruption disturb (Primary Dx) Social History Tobacco Use Types Packs/Day Years Used Date Smoking Tobacco: Never Assessed Comments Unknown Sex and Gender Information Value Date Recorded Sex Assigned at Not on file Legal Sex Female 5:22 AM BAG MACHINE SET UP OPERATOR Gender Identity Not [...] 10/30/13 Resolved 11/04/2013 11/04/2013 8 10:33 AM BAG MACHINE SET UP OPERATOR R/O COVID-19 12/25/2019 12/25/2019 12/26/2019 2:46 PM CDT R/O COVID-19 05/09/2020 05/09/2020 05/09/2020 12:1 7 PM BAG MACHINE SET UP OPERATOR documented as of this encounter Care Teams Center Director Lead Teacher Relationship Specialty Start Date End Date Dara Tavera FNP [address] [place] [address] PCP - General NURSE PRACTITIONER 10/13/18 documented as of this encounter
--- OUTSIDE RECORDS SUMMARY | 2025-04-20 21:13 | XMS_ITS | Encounter Summary ---
Author Organization [facility] Address [address] [place] [address] Care Team Providers Care Road Engineer Name Role Phone Dara Tavera AMANDEEP Primary Care Provider Encounter Details Date Type Department Care Team (Latest Contact Info) Description 02/24/2005 Outpatient Historical [facility] [address] [place] [address] Prasad Carpenter MD NO ADDRESS ON FILE OTHER BACK SYMPTOMS (Primary Dx); LUMB/LUMBOSAC DISC DEGEN; LUMBAGO; Lumbosacral spondylosis Social History Tobacco Use Types Packs/Day Years Used Date Smoking Tobacco: Never Assessed Comments Unknown Sex and Gender Information Value Date Recorded Sex Assigned at Not on file Legal Sex Female 5:22 AM MANAGER CONTINUOUS IMPROVEMENT Gender Identity Not on file Sexual Orientation [...] Resolved 11/04/2013 11/04/2013 8 10:33 AM MANAGER CONTINUOUS IMPROVEMENT R/O COVID-19 12/25/2019 12/25/2019 12/26/2019 2:46 PM CDT R/O COVID-19 05/09/2020 05/09/2020 05/09/2020 12:1 7 PM MANAGER CONTINUOUS IMPROVEMENT documented as of this encounter Care Teams Road Engineer Relationship Specialty Start Date End Date Dara Tavera FNP [address] [place] [phone] PCP - General NURSE PRACTITIONER 10/13/18 documented as of this encounter
--- OUTSIDE RECORDS SUMMARY | 2025-04-20 21:14 | XMS_ITS | Encounter Summary ---
Author Organization [facility] Address [address] [place] [address] Care Team Providers Care Division Superintendent Name Role Phone Dara Tavera Primary Care Provider Encounter Details Date Type Department Care Team (Latest Contact Info) Description 08/14/2003 Outpatient Historical [facility] Urology- [address] Entrance B, 3rd [place] [address] Hossein Blair MD NO ADDRESS ON FILE FEMALE STRESS INCONTINENCE (Primary Dx) Social History Tobacco Use Types Packs/Day Years Used Date Smoking Tobacco: Never Assessed Comments Unknown Sex and Gender Information Value Date Recorded Sex Assigned at Not on file Legal Sex Female 5:22 AM OIL WELL PUMPER Gender Identity Not on file Sexual Orientation Not on file documented as of this encounter Plan of Treatment Not on file documented as of this encounter Visit Diagnoses Diagnosis Female stress incontinence- Primary documented in this encounter Additional Health Concerns Infection Onset Date Last Indicated Resolved Time VRE Comment:Urine 10/30/13 Resolved 11/04/2013 11/04/2013 10:33 AM OIL WELL PUMPER R/O COVID-19 12/25/2019 12/25/2019 12/26/2019 2:46 PM CDT R/O COVID-19 05/09/2020 05/09/2020 05/09/2020 12:1 7 PM OIL WELL PUMPER documented as of this encounter Care Teams Division Superintendent Relationship Specialty Start Date End Date Dara Tavera FNP [address] [place] [phone] PCP - General NURSE PRACTITIONER 10/13/18 documented as of this encounter
--- OUTSIDE RECORDS SUMMARY | 2025-04-20 21:14 | XMS_ITS | Encounter Summary ---
Author Organization [facility] Address [address] [place]n: [place] [address] Care Team Providers Care Solid Waste Facility Operator Name Role Phone Dara Tavera Primary Care Provider Encounter Details Date Type Department Care Team ([facility] st Contact Info) Description 01/17/2001 Outpatient Historical Non-Staff, Physician NO ADDRESS ON FILE Social History Tobacco Use Types Packs/Day Years Used Date Smoking Tobacco: Never Assessed Comments Unknown Sex and Gender Information Value Date Recorded Sex Assigned at Not on file Legal Sex Female 5:22 AM HUMAN RESOURCES PARTNER Gender Identity Not on file Sexual Orientation Not on file documented as of this encounter Plan of Treatment Not on file documented as of this encounter Visit Diagnoses Not on filedocumented in this encounter Additional Health Concerns Infection Onset Date Last Indicated Resolved Time VRE Comment:Urine 10/30/13 Resolved 11/04/2013 11/04/2013 8 10:33 AM HUMAN RESOURCES PARTNER R/O COVID-19 12/25/2019 12/25/2019 12/26/2019 2:46 PM CDT R/O COVID-19 05/09/2020 05/09/2020 05/09/2020 12:1 7 PM HUMAN RESOURCES PARTNER documented as of this encounter Care Teams Solid Waste Facility Operator Relationship Specialty Start Date End Date Dara Tavera FNP [address] [place] [phone] PCP - General NURSE PRACTITIONER 10/13/18 documented as of this encounter
--- OUTSIDE RECORDS SUMMARY | 2025-04-20 21:14 | XMS_ITS | Encounter Summary ---
Author Organization [facility] Address [address] [place] [address] Care Team Providers Care Warehouse Order Picker Name Role Phone Dara Tavera Primary Care Provider [phone] Encounter Details Date Type Department Care Team (Latest Contact Info) Description 06/17/1997 Outpatient Historical [facility] Roney Arora MD [address] [facility] [address] [place] [address] Unspecified osteomyelitis, site unspecified (CMS/HCC) (Primary Dx) Social History Tobacco Use Types Packs/Day Years Used Date Smoking Tobacco: Never Assessed Comments Unknown Sex and Gender Information Value Date Recorded Sex Assigned at Not on file Legal Sex Female 5:22 AM THREE KNIFE TRIMMER Gender Identity Not on file Sexual Orientation Not on file documented as of this encounter Plan of Treatment Not on file documented as of this encounter Visit Diagnoses Diagnosis Unspecified osteomyelitis, site unspecified (CMS/HCC)- Primary Unspecified osteomyelitis, site unspecified documented in this encounter Additional Health Concerns Infection Onset Date Last Indicated Resolved Time VRE Comment:Urine 10/30/13 Resolved 11/04/2013 11/04/2013 8 10:33 AM THREE KNIFE TRIMMER R/O COVID-19 12/25/2019 12/25/2019 12/26/2019 2:46 PM CDT R/O COVID-19 05/09/2020 05/09/2020 05/09/2020 12:1 7 PM THREE KNIFE TRIMMER documented as of this encounter Care Teams Warehouse Order Picker Relationship Specialty Start Date End Date Dara Tavera FNP [address] [place] [phone] PCP - General NURSE PRACTITIONER 10/13/18 documented as of this encounter
--- OUTSIDE RECORDS SUMMARY | 2025-04-20 21:14 | XMS_ITS | Encounter Summary ---
Author Organization [facility] Address [address] [place] [address] Care Team Providers Care Photoengraving Etcher Name Role Phone Dara Tavera Primary Care Provider Encounter Details Date Type Department Care Team (Late st Contact Info) Description 06/10/1997 Outpatient Historical [facility] Chio Lopez MD [address] [place] [phone] Lumbago (Primary Dx) Social History Tobacco Use Types Packs/Day Years Used Date Smoking Tobacco: Never Assessed Comments Unknown Sex and Gender Information Value Date Recorded Sex Assigned at Not on file Legal Sex Female 5:22 AM WORK ORDER CLERK Gender Identity Not on file Sexual Orientation Not on file documented as of this encounter Plan of Treatment Not on file documented as of this encounter Visit Diagnoses Diagnosis Lumbago- Primary documented in this encounter Additional Health Concerns Infection Onset Date Last Indicated Resolved Time VRE Comment:Urine 10/30/13 Resolved 11/04/2013 11/04/2013 8 10:33 AM WORK ORDER CLERK R/O COVID-19 12/25/2019 12/25/2019 12/26/2019 2:46 PM CDT R/O COVID-19 05/09/2020 05/09/2020 05/09/2020 12:1 7 PM WORK ORDER CLERK documented as of this encounter Care Teams Photoengraving Etcher Relationship Specialty Start Date End Date Dara Tavera FNP [address] [place] [address] PCP - General NURSE PRACTITIONER 10/13/18 documented as of this encounter
--- OUTSIDE RECORDS SUMMARY | 2025-04-20 21:14 | XMS_ITS | Encounter Summary ---
Author Organization [facility] Address [address] Att[address]: [place] [address] Care Team Providers Care Training Facilitator Name Role Phone Dara Tavera Primary Care Provider Encounter Details Date Type Department Care Team ([facility] Contact Info) Description 02/25/2002 Outpatient Historical Raúl Osullivan MD [address] [place] [address] Social History Tobacco Use Types Packs/Day Years Used Date Smoking Tobacco: Never Assessed Comments Unknown Sex and Gender Information Value Date Recorded Sex Assigned at Not on file Legal Sex Female 5:22 AM INTERIM CONTROLLER Gender Identity Not on file Sexual Orientation Not on file documented as of this encounter Plan of Treatment Not on file documented as of this encounter Visit Diagnoses Not on filedocumented in this encounter Additional Health Concerns Infection Onset Date Last Indicated Resolved Time VRE Comment:Urine 10/30/13 Resolved 11/04/2013 11/04/2013 8 10:33 AM INTERIM CONTROLLER R/O COVID-19 12/25/2019 12/25/2019 12/26/2019 2:46 PM CDT R/O COVID-19 05/09/2020 05/09/2020 05/09/2020 12:1 7 PM INTERIM CONTROLLER documented as of this encounter Care Teams Training Facilitator Relationship Specialty Start Date End Date Dara Tavera FNP [address] [place] [phone] PCP - General NURSE PRACTITIONER 10/13/18 documented as of this encounter
--- OUTSIDE RECORDS SUMMARY | 2025-04-20 21:14 | XMS_ITS | Encounter Summary ---
Author Organization [facility] Address [address] [place] [address] Care Team Providers Care Assessment Clinician Name Role Phone Daar Tavera Primary Care Provider Encounter Details Date Type Department Care Team (Latest Contact Info) Description 09/25/2003 Outpatient Historical [facility] Urology- [address] Entrance B, 3rd [place] [address] Hossein Blair MD NO ADDRESS ON FILE URGE & STRESS MIXED INCONTINENCE (Primary Dx) Social History Tobacco Use Types Packs/Day Years Used Date Smoking Tobacco: Never Assessed Comments Unknown Sex and Gender Information Value Date Recorded Sex Assigned at Not on file Legal Sex Female 5:22 AM BOW MAKER CUSTOM Gender Identity Not on file Sexual Orientation Not on file documented as of this encounter Plan of Treatment Not on file documented as of this encounter Visit Diagnoses Diagnosis Mixed incontinence urge and stress (male)(female)- Primary documented in this encounter Additional Health Concerns Infection Onset Date Last Indicated Resolved Time VRE Comment:Urine 10/30/13 Resolved 11/04/2013 11/04/2013 8 10:33 AM BOW MAKER CUSTOM R/O COVID-19 12/25/2019 12/25/2019 12/26/2019 2:46 PM CDT R/O COVID-19 05/09/2020 05/09/2020 05/09/2020 12:1 7 PM BOW MAKER CUSTOM documented as of this encounter Care Teams Assessment Clinician Relationship Specialty Start Date End Date Dara Tavera FNP [address] [place] [phone] PCP - General NURSE PRACTITIONER 10/13/18 documented as of this encounter
--- OUTSIDE RECORDS SUMMARY | 2025-04-20 21:14 | XMS_ITS | Encounter Summary ---
Author Organization [facility] Address [address] [place] [address] Care Team Providers Care Commercial Estimator Name Role Phone Dara Tavera Primary Care Provider Encounter Details Date Type Department Care Team (Latest Contact Info) Description 08/08/2003 Outpatient Historical [facility] Urology- [address]tr[address], 3rd [place] [address] Hossein Blair MD NO ADDRESS ON FILE URGE & STRESS MIXED INCONTINENCE (Primary Dx) Social History Tobacco Use Types Packs/Day Years Used Date Smoking Tobacco: Never Assessed Comments Unknown Sex and Gender Information Value Date Recorded Sex Assigned at Not on file Legal Sex Female 5:22 AM CONFERENCE SERVICES MANAGER Gender Identity Not on file Sexual Orientation Not on file documented as of this encounter Plan of Treatment Not on file documented as of this encounter Visit Diagnoses Diagnosis Mixed incontinence urge and stress (male)(female)- Primary documented in this encounter Additional Health Concerns Infection Onset Date Last Indicated Resolved Time VRE Comment:Urine 10/30/13 Resolved 11/04/2013 11/04/2013 8 10:33 AM CONFERENCE SERVICES MANAGER R/O COVID-19 12/25/2019 12/25/2019 12/26/2019 2:46 PM CDT R/O COVID-19 05/09/2020 05/09/2020 05/09/2020 12:1 7 PM CONFERENCE SERVICES MANAGER documented as of this encounter Care Teams Commercial Estimator Relationship Specialty Start Date End Date Dara Tavera FNP [address] [place] [phone] PCP - General NURSE PRACTITIONER 10/13/18 documented as of this encounter
--- OUTSIDE RECORDS SUMMARY | 2025-04-20 21:14 | XMS_ITS | Encounter Summary ---
Author Organization [facility] Address [address] [place]: [place] [address] Care Team Providers Care Automated Logistics Specialist Name Role Phone Dara Tavera Primary Care Provider Encounter Details Date Type Department Care Team ([facility] st Contact Info) Description 11/25/1999 Outpatient Historical [facility], [place], [address] [place] [phone] Social History Tobacco Use Types Packs/Day Years Used Date Smoking Tobacco: Never Assessed Comments Unknown Sex and Gender Information Value Date Recorded Sex Assigned at Not on file Legal Sex Female 5:22 AM OPHTHALMIC NURSE Gender Identity Not on file Sexual Orientation Not on file documented as of this encounter Plan of Treatment Not on file documented as of this encounter Visit Diagnoses Not on filedocumented in this encounter Additional Health Concerns Infection Onset Date Last Indicated Resolved Time VRE Comment:Urine 10/30/13 Resolved 11/04/2013 11/04/2013 8 10:33 AM OPHTHALMIC NURSE R/O COVID-19 12/25/2019 12/25/2019 12/26/2019 2:46 PM CDT R/O COVID-19 05/09/2020 05/09/2020 05/09/2020 12:1 7 PM OPHTHALMIC NURSE documented as of this encounter Care Teams Automated Logistics Specialist Relationship Specialty Start Date End Date Dara Tavera FNP [address] [place] [phone] PCP - General NURSE PRACTITIONER 10/13/18 documented as of this encounter
--- OUTSIDE RECORDS SUMMARY | 2025-04-20 21:14 | XMS_ITS | Encounter Summary ---
Author Organization [facility] Address [address] [place] [address] Care Team Providers Care Dog Or Animal Sitter Name Role Phone Dara Tavera AMANDEEP Primary Care Provider [phone] Encounter Details Date Type Department Care Team (Latest Contact Info) Description 02/28/2008 Outpatient Historical [facility] [address] [place] [address] [facility] Blood in Stool; Nausea Alone; Unspecified Asthma; [...] on file Legal Sex Female 5:22 AM HEDDLER TIER Gender Identity Not on file Sexual Orientation [...] 10/30/13 Resolved 11/04/2013 11/04/201307/26/201 8 10:33 AM HEDDLER TIER R/O COVID-19 12/25/2019 12/25/2019 12/26/2019 2:46 PM CDT R/O COVID-19 05/09/2020 05/09/2020 05/09/2020 12:1 7 PM HEDDLER TIER documented as of this encounter Care Teams Dog Or Animal Sitter Relationship Specialty Start Date End Date Dara Tavera FNP [address] [place] [phone] PCP - General NURSE PRACTITIONER 10/13/18 documented as of this encounter
--- OUTSIDE RECORDS SUMMARY | 2025-04-20 21:14 | XMS_ITS | Encounter Summary ---
Author Organization [facility] Address [address] [place] [address] Care Team Providers Care Event Services Manager Name Role Phone Dara Tavera Primary Care Provider Encounter Details Date Type Department Care Team (Latest Contact Info) Description 06/04/1997 Outpatient Historical [facility] Roney Arora MD [address] [facility] [address] [place] [address] Unspecified osteomyelitis, other specified site (Primary Dx); Need vaccination-viral disease Social History Tobacco Use Types Packs/Day Years Used Date Smoking Tobacco: Never Assessed Comments Unknown Sex and Gender Information Value Date Recorded Sex Assigned at Not on file Legal Sex Female 5:22 AM HAULING CONTRACTOR Gender Identity Not on file Sexual Orientation [...] 10/30/13 Resolved 11/04/2013 11/04/2013 8 10:33 AM HAULING CONTRACTOR R/O COVID-19 12/25/2019 12/25/2019 12/26/2019 2:46 PM CDT R/O COVID-19 05/09/2020 05/09/2020 05/09/2020 12:1 7 PM HAULING CONTRACTOR documented as of this encounter Care Teams Event Services Manager Relationship Specialty Start Date End Date Dara Tavera FNP [address] [place] [phone] PCP - General NURSE PRACTITIONER 10/13/18 documented as of this encounter
--- OUTSIDE RECORDS SUMMARY | 2025-04-20 21:14 | XMS_ITS | Encounter Summary ---
Author Organization [facility] Address [address] [place] [address] Care Team Providers Care Jaw Skinner Name Role Phone Dara Tavera Primary Care Provider Encounter Details Date Type Department Care Team (Late st Contact Info) Description 07/16/2007 Outpatient [facility] [address] [place] [address] Tej Will MD [address] [address] Social History Tobacco Use Types Packs/Day Years Used Date Smoking Tobacco: Never Assessed Comments Unknown Sex and Gender Information Value Date Recorded Sex Assigned at Not on file Legal Sex Female 5:22 AM WORK TICKET DISTRIBUTOR Gender Identity Not on file Sexual Orientation Not on file documented as of this encounter Plan of Treatment Not on file documented as of this encounter Visit Diagnoses Not on filedocumented in this encounter Additional Health Concerns Infection Onset Date Last Indicated Resolved Time VRE Comment:Urine 10/30/13 Resolved 11/04/2013 11/04/2013 8 10:33 AM WORK TICKET DISTRIBUTOR R/O COVID-19 12/25/2019 12/25/2019 12/26/2019 2:46 PM CDT R/O COVID-19 05/09/2020 05/09/2020 05/09/2020 12:1 7 PM WORK TICKET DISTRIBUTOR documented as of this encounter Care Teams Jaw Skinner Relationship Specialty Start Date End Date Dara Tavera FNP [address] [place] [phone] PCP - General NURSE PRACTITIONER 10/13/18 documented as of this encounter
--- OUTSIDE RECORDS SUMMARY | 2025-04-20 21:14 | XMS_ITS | Encounter Summary ---
Author Organization [facility] Address [address] [place] [address] Care Team Providers Care Aquaculture Farmer Name Role Phone Dara Tavera AMANDEEP Primary Care Provider Encounter Details Date Type Department Care Team (Latest Contact Info) Description 07/30/1997 Outpatient Historical [facility] Roney Arora MD [address] [facility] [address] [place] [address] Bipolar I disorder, most recent episode (or current) unspecified (CMS/HCC) (Primary Dx); Unspecified osteomyelitis, other specified site; Nausea with vomiting Social History Tobacco Use Types Packs/Day Years Used Date Smoking Tobacco: Never Assessed Comments Unknown Sex and Gender Information Value Date Recorded Sex Assigned at Not on file Legal Sex Female 5:22 AM CHARTER COORDINATOR Gender Identity Not on file Sexual [...] 10/30/13 Resolved 11/04/2013 11/04/2013 8 10:33 AM CHARTER COORDINATOR R/O COVID-19 12/25/2019 12/25/2019 12/26/2019 2:46 PM CDT R/O COVID-19 05/09/2020 05/09/2020 05/09/2020 12:1 7 PM CHARTER COORDINATOR documented as of this encounter Care Teams Aquaculture Farmer Relationship Specialty Start Date End Date Dara Tavrea FNP [address] [place] [address] PCP - General NURSE PRACTITIONER 10/13/18 documented as of this encounter
--- OUTSIDE RECORDS SUMMARY | 2025-04-20 21:14 | XMS_ITS | Encounter Summary ---
Author Organization [facility] Address [address] [place] [address] Care Team Providers Care Biofuels Processing Technician Name Role Phone Dara Tavera Primary Care Provider Encounter Details Date Type Department Care Team (Late st Contact Info) Description 07/03/2007 [facility] [address] [place] [address] Tej Will MD [address] [address] Social History Tobacco Use Types Packs/Day Years Used Date Smoking Tobacco: Never Assessed Comments Unknown Sex and Gender Information Value Date Recorded Sex Assigned at Not on file Legal Sex Female 5:22 AM MEDICAL REIMBURSEMENT MANAGER Gender Identity Not on file Sexual Orientation Not on file documented as of this encounter Plan of Treatment Not on file documented as of this encounter Visit Diagnoses Not on filedocumented in this encounter Additional Health Concerns Infection Onset Date Last Indicated Resolved Time VRE Comment:Urine 10/30/13 Resolved 11/04/2013 11/04/2013 8 10:33 AM MEDICAL REIMBURSEMENT MANAGER R/O COVID-19 12/25/2019 12/25/2019 12/26/2019 2:46 PM CDT R/O COVID-19 05/09/2020 05/09/2020 05/09/2020 12:1 7 PM MEDICAL REIMBURSEMENT MANAGER documented as of this encounter Care Teams Biofuels Processing Technician Relationship Specialty Start Date End Date Dara Tavera FNP [address] [place] [phone] PCP - General NURSE PRACTITIONER 10/13/18 documented as of this encounter
--- OUTSIDE RECORDS SUMMARY | 2025-04-20 21:14 | XMS_ITS | Encounter Summary ---
Author Organization [facility] Address [address] [place] [address] Care Team Providers Care Reservation Agent Name Role Phone Dara Tavera Primary Care Provider Encounter Details Date Type Department Care Team (Latest Contact Info) Description 07/02/1997 Outpatient Historical [facility] Roney Arora MD [address] [facility] [address] [place] [address] Unspecified osteomyelitis, other specified site (Primary Dx) Social History Tobacco Use Types Packs/Day Years Used Date Smoking Tobacco: Never Assessed Comments Unknown Sex and Gender Information Value Date Recorded Sex Assigned at Not on file Legal Sex Female 5:22 AM MONITOR AND STORAGE BIN TENDER Gender Identity Not on file Sexual Orientation Not on file documented as of this encounter Plan of Treatment Not on file documented as of this encounter Visit Diagnoses Diagnosis Unspecified osteomyelitis, other specified site- Primary documented in this encounter Additional Health Concerns Infection Onset Date Last Indicated Resolved Time VRE Comment:Urine 10/30/13 Resolved 11/04/2013 11/04/2013 8 10:33 AM MONITOR AND STORAGE BIN TENDER R/O COVID-19 12/25/2019 12/25/2019 12/26/2019 2:46 PM CDT R/O COVID-19 05/09/2020 05/09/2020 05/09/2020 12:1 7 PM MONITOR AND STORAGE BIN TENDER documented as of this encounter Care Teams Reservation Agent Relationship Specialty Start Date End Date Dara Tavera FNP [address] [place] [phone] PCP - General NURSE PRACTITIONER 10/13/18 documented as of this encounter
--- OUTSIDE RECORDS SUMMARY | 2025-04-20 21:14 | XMS_ITS | Encounter Summary ---
Author Organization [facility] Address [address] [place] [address] Care Team Providers Care Instructional Aide Name Role Phone Dara Tavera Primary Care Provider Encounter Details Date Type Department Care Team (Late st Contact Info) Description 07/20/2007 Outpatient Historical [facility] [address] [facility] [address] [place] [address] Prasad Carpenter MD NO ADDRESS ON FILE Social History Tobacco Use Types Packs/Day Years Used Date Smoking Tobacco: Never Assessed Comments Unknown Sex and Gender Information Value Date Recorded Sex Assigned at Not on file Legal Sex Female 5:22 AM SOFTWARE QA MANAGER Gender Identity Not on file Sexual Orientation Not on file documented as of this encounter Plan of Treatment Not on file documented as of this encounter Visit Diagnoses Not on filedocumented in this encounter Additional Health Concerns Infection Onset Date Last Indicated Resolved Time VRE Comment:Urine 10/30/13 Resolved 11/04/2013 11/04/2013 8 10:33 AM SOFTWARE QA MANAGER R/O COVID-19 12/25/2019 12/25/2019 12/26/2019 2:46 PM CDT R/O COVID-19 05/09/2020 05/09/2020 05/09/2020 12:1 7 PM SOFTWARE QA MANAGER documented as of this encounter Care Teams Instructional Aide Relationship Specialty Start Date End Date Dara Tavera FNP [address] [place] [phone] PCP - General NURSE PRACTITIONER 10/13/18 documented as of this encounter
--- OUTSIDE RECORDS SUMMARY | 2025-04-20 21:14 | XMS_ITS | Encounter Summary ---
Author Organization [facility] Address [address] [place] [address] Care Team Providers Care Card Sorter Name Role Phone Dara Tavera AMANDEEP Primary Care Provider [phone] Encounter Details Date Type Department Care Team (Latest Contact Info) Description 02/20/2008 Outpatient Historical [facility] [address] [place] [address] AMBULANCE, [facility] Hemorrhage of Rectum and Anus; Unspecified Tachycardia; [...] on file Legal Sex Female 5:22 AM INTERVENTIONAL TECH Gender Identity Not on file Sexual [...] 10/30/13 Resolved 11/04/2013 11/04/2013 8 10:33 AM INTERVENTIONAL TECH R/O COVID-19 12/25/2019 12/25/2019 12/26/2019 2:46 PM CDT R/O COVID-19 05/09/2020 05/09/2020 05/09/2020 12:1 7 PM INTERVENTIONAL TECH documented as of this encounter Care Teams Card Sorter Relationship Specialty Start Date End Date Dara Tavera FNP [address] [place] [address] PCP - General NURSE PRACTITIONER 10/13/18 documented as of this encounter
--- OUTSIDE RECORDS SUMMARY | 2025-04-20 21:14 | XMS_ITS | Encounter Summary ---
Author Organization [facility] Address [address] [place] [address] Care Team Providers Care Budget Manager Name Role Phone Dara Tavera Primary Care Provider Encounter Details Date Type Department Care Team (Latest Contact Info) Description 03/07/2019 Ancillary Orders [facility] Centralized Scheduling [address] [place] [address] Dara Tavera FNP [address] [place] [address] Screening breast examination Social History Tobacco Use Types Packs/Day Years Used Date Smoking Tobacco: Every Day Cigarettes Smokeless Tobacco: Never Comments:2 cigarettes daily Alcohol Use Standard Drinks/Week Comments No 0 (1 standard drink = 0.6 oz pur e alcohol) Comments No Sex and Gender Information Value Date Recorded Sex Assigned at Not on file Legal Sex Female 5:22 AM HAND TOOL FILER Gender Identity Not on file Sexual Orientation [...] COVID-19 05/09/2020 05/09/2020 05/09/2020 12:1 7 PM HAND TOOL FILER documented as of this encounter Care Teams Budget Manager Relationship Specialty Start Date End Date Dara Tavera FNP [address] [place] [phone] PCP - General NURSE PRACTITIONER 10/13/18 documented as of this encounter
--- OUTSIDE RECORDS SUMMARY | 2025-04-20 21:14 | XMS_ITS | Encounter Summary ---
Author Organization [facility] Address [address] [place] [address] Care Team Providers Care Leather Goods Ii Assembler Name Role Phone Dara Tavera STATISTICAL GENETICIST Primary Care Provider [phone] Encounter Details Date Type Department Care Team (Latest Contact Info) Description 10/04/2003 Outpatient Historical [facility] Clinical Services [address] [place] [address] Hood Kerr Jr., MD [address] [place] [address] SCHIZOAFFECTIVE-UNSP EC (CMS/HCC) (Primary Dx) Social History Tobacco Use Types Packs/Day Years Used Date Smoking Tobacco: Never Assessed Comments Unknown Sex and Gender Information Value Date Recorded Sex Assigned at Not on file Legal Sex Female 5:22 AM TICKET AGENT Gender Identity Not on file Sexual Orientation Not on file documented as of this encounter Plan of Treatment Not on file documented as of this encounter Visit Diagnoses Diagnosis Schizoaffective disorder, unspecified condition (CMS/HCC)- Primary Schizoaffective disorder, unspecified condition documented in this encounter Additional Health Concerns Infection Onset Date Last Indicated Resolved Time VRE Comment:Urine 10/30/13 Resolved 11/04/2013 11/04/2013 8 10:33 AM TICKET AGENT R/O COVID-19 12/25/2019 12/25/2019 12/26/2019 2:46 PM CDT R/O COVID-19 05/09/2020 05/09/2020 05/09/2020 12:1 7 PM TICKET AGENT documented as of this encounter Care Teams Leather Goods Ii Assembler Relationship Specialty Start Date End Date Dara Tavera FNP [address] [place] [phone] PCP - General NURSE PRACTITIONER 10/13/18 documented as of this encounter
--- OUTSIDE RECORDS SUMMARY | 2025-04-20 21:14 | XMS_ITS | Encounter Summary ---
Author Organization [facility] Address [address] [place] [address] Care Team Providers Care Septic Tank Cleaner Name Role Phone Dara Tavera Primary Care Provider Encounter Details Date Type Department Care Team (Late st Contact Info) Description 08/13/2007 Outpatient [facility] [address] [place] [address] Tej Will MD [address] [address] Social History Tobacco Use Types Packs/Day Years Used Date Smoking Tobacco: Never Assessed Comments Unknown Sex and Gender Information Value Date Recorded Sex Assigned at Not on file Legal Sex Female 5:22 AM FRONT DESK RECEPTIONIST Gender Identity Not on file Sexual Orientation Not on file documented as of this encounter Plan of Treatment Not on file documented as of this encounter Visit Diagnoses Not on filedocumented in this encounter Additional Health Concerns Infection Onset Date Last Indicated Resolved Time VRE Comment:Urine 10/30/13 Resolved 11/04/2013 11/04/2013 8 10:33 AM FRONT DESK RECEPTIONIST R/O COVID-19 12/25/2019 12/25/2019 12/26/2019 2:46 PM CDT R/O COVID-19 05/09/2020 05/09/2020 05/09/2020 12:1 7 PM FRONT DESK RECEPTIONIST documented as of this encounter Care Teams Septic Tank Cleaner Relationship Specialty Start Date End Date Dara Tavera FNP [address] [place] [phone] PCP - General NURSE PRACTITIONER 10/13/18 documented as of this encounter
--- OUTSIDE RECORDS SUMMARY | 2025-04-20 21:14 | XMS_ITS | Encounter Summary ---
Author Organization [facility] Address [address] [place] [address] Care Team Providers Care Water Technician Name Role Phone Dara Tavera AMMONIUM NITRATE CRYSTALLIZER Primary Care Provider [phone] Encounter Details Date Type Department Care Team (Late st Contact Info) Description 07/31/2007 Emergency [facility] Emergency Department [address] [place] [address] Ed, Physician NO ADDRESS ON FILE Silvia Mayers MD [address] [place] [address] Social History Tobacco Use Types Packs/Day Years Used Date Smoking Tobacco: Never Assessed Comments Unknown Sex and Gender Information Value Date Recorded Sex Assigned at Not on file Legal Sex Female 5:22 AM DRUPAL DEVELOPER Gender Identity Not on file Sexual Orientation Not on file documented as of this encounter Plan of Treatment Not on file documented as of this encounter Procedures Procedure Name Priority Date/Time Associated Diagnosis Comments CT ABDOMEN PELVIS W CONTRAST Routine 08/01/2007 2:49 AM DRUPAL DEVELOPER CBC WITH DIFFERENTIAL Stat 07/31/2007 11:25 PM DRUPAL DEVELOPER COMPREHENSIVE METABOLIC PANEL Stat 07/31/2007 11:25 PM DRUPAL DEVELOPER URINALYSIS MICROSCOPY ONLY Stat 07/31/2007 11:20 PM DRUPAL DEVELOPER URINALYSIS W/REFLEX MICROSCOPIC Stat 07/31/2007 11:20 PM DRUPAL DEVELOPER documented in this encounter Results * CT ABDOMEN PELVIS W CONTRAST (08/01/2007 2:49 AM DRUPAL DEVELOPER) Anatomical Region Laterality Modality Abdomen Other 08/01/2007 2:49 AM DRUPAL DEVELOPER Narrative 08/01/2007 2:[address] of the abdomen and pelvis was [...] (ABNORMAL) CBC WITH DIFFERENTIAL (07/31/2007 11:25 PM DRUPAL DEVELOPER) LYMPHOCYTE ABSOLUTE 2.8 1.2 - 4.0 K/ul [facility] MCV 87.2 84.0 - 103.0 Fl [facility] MPV 10.0 8.9 - 12.8 Fl [facility] BASOPHILS ABSOLUTE 0.1 0.0 - 0.2 K/ul [facility] BASOPHILS 0.6 0.0 - 1.0 % [facility] HEMOGLOBIN 13.2 12.0 - 16.0 g/dL [facility] RDW 14.8(H) 11.0 - 14.5 % [facility] MONOCYTE ABSOLUTE 0.7(H) 0.1 - 0.6 K/ul [facility] MONOCYTES 6.7 2.0 - 10.0 % [facility] WBC 9.7 4.5 - 11.0 K/ul [facility] MCH 29.1 27.0 - 34.0 pg [facility] NEUTROPHIL ABSOLUTE 6.1 2.0 - 8.0 K/ul [facility] NEUTROPHILS 62.8 42.2 - 75.2 % [facility] HEMATOCRIT 39.6 36.0 - 46.0 % [facility] EOSINOPHILS 1.4 0.0 - 7.0 % [facility] PLATELETS 272 140 - 440 K/ul [facility] EOSINOPHIL ABSOLUTE 0.1 0.0 - 0.7 K/ul [facility] RBC 4.54 4.20 - 5.40 Mil/ul [facility] LYMPHOCYTES 28.5 24.0 - 44.0 % [facility] MCHC 33.3 30.0 - 35.0 g/dL [facility] Blood specimen (specimen) 07/31/2007 11:25 PM DRUPAL DEVELOPER 07/31/2007 11:32 PM DRUPAL DEVELOPER us Silvia Mayers MD HEMATOLOGY ORDERABLES Final Res ult [facility] [address] [place] [address] * (ABNORMAL) COMPREHENSIVE METABOLIC PANEL (07/31/2007 11:25 PM DRUPAL DEVELOPER) BUN 20(H) 7 - 17 mg/dL [facility] CO2 19(L) 22 - 32 mmol/l [facility] ANION GAP 11 9 - 20 mEq/L [facility] AST 14 8 - 33 U/L [facility] POTASSIUM 3.6 3.5 - 5.0 mEq/L [facility] GLOBULIN (CALC) 3.0 2.4 - 3.9 g/dL [facility] ALBUMIN 4.3 3.5 - 5.0 g/dL [facility] CREATININE 0.9 0.7 - 1.2 mg/dL [facility] CALCIUM 9.4 8.4 - 10.5 mg/dL [facility] ALT 21 4 - 36 IU/L [facility] OSMOLALITY, CALCULATED 291 275 - 295 mOsm/Kg [facility] GLUCOSE 113(H) 70 - 110 mg/dL [facility] CHLORIDE 114(H) 95 - 110 mEq/L [facility] ALKALINE PHOSPHATASE 154(H) 25 - 100 U/L [facility] ALBUMIN/GLOBULIN RATIO 1.4 1.0 - 2.3 [facility] SODIUM 140 136 - 145 mEq/L [facility] TOTAL PROTEIN 7.3 6.3 - 8.2 g/dL [facility] BILIRUBIN TOTAL 0.2(L) 0.3 - 1.2 mg/dL [facility] Blood specimen (specimen) 07/31/2007 11:25 PM DRUPAL DEVELOPER 07/31/2007 11:32 PM DRUPAL DEVELOPER Result [facility] Silvia Mayers MD CHEMISTRY ORDERABLES Final Resu lt Performing Organization Address [facility] de Phone Number [facility] [address] [place] [address] * (ABNORMAL) URINALYSIS (07/31/2007 11:20 PM DRUPAL DEVELOPER) CLARITY UA Clear Clear [facility] SPECIFIC GRAVITY UA 1.031 <=1.005 [facility] GLUCOSE UA NEGATIVE NEGATIVE [facility] PH UA 6.0 5.0 - 9.0 [facility] BILIRUBIN UA NEGATIVE NEGATIVE [facility] LEUKOCYTE ESTERASE UA NEGATIVE NEGATIVE [facility] KETONES UA NEGATIVE NEGATIVE [facility] MICRO EXAM Yes(A) No [facility] COLOR UA Yellow Straw [facility] PROTEIN UA NEGATIVE NEGATIVE [facility] BLOOD UA NEGATIVE NEGATIVE [facility] NITRITE UA NEGATIVE NEGATIVE [facility] UROBILINOGEN UA 0.2 0.2 [facility] Urine, clean catch 07/31/2007 11:20 PM DRUPAL DEVELOPER 07/31/2007 11:23 PM DRUPAL DEVELOPER Silvia Mayers MD URINE ORDERABLES Final Result Performing Organization Address [facility] de Phone Number [facility] [address] [place] [address] * URINALYSIS MICROSCOPY ONLY (07/31/2007 11:20 PM DRUPAL DEVELOPER) HYALINE CAST None Seen 0 - 2 [facility] WBC URINE None Seen 0 - 2 [facility] BACTERIA UA None Seen None Seen [facility] RBC UA None Seen 0 - 2 [facility] Urine specimen (specimen) 07/31/2007 11:20 PM DRUPAL DEVELOPER 07/31/2007 11:23 PM DRUPAL DEVELOPER Silvia Mayers MD URINE ORDERABLES Final Result [facility] [address] [place] [address] documented in this encounter Visit Diagnoses Not on filedocumented in this encounter Additional Health Concerns Infection Onset Date Last Indicated Resolved Time VRE Comment:Urine 10/30/13 Resolved 11/04/2013 11/04/2013 8 10:33 AM DRUPAL DEVELOPER R/O COVID-19 12/25/2019 12/25/2019 12/26/2019 2:46 PM CDT R/O COVID-19 05/09/2020 05/09/2020 05/09/2020 12:1 7 PM DRUPAL DEVELOPER documented as of this encounter Care Teams Water Technician Relationship Specialty Start Date End Date Dara Tavera FNP [address] [place] [address] PCP - General NURSE PRACTITIONER 10/13/18 documented as of this encounter
--- OUTSIDE RECORDS SUMMARY | 2025-04-20 21:14 | XMS_ITS | Encounter Summary ---
Author Organization [facility] Address [address] [place] [address] Care Team Providers Care Engineering Administrator Name Role Phone Dara Tavera AMANDEEP Primary Care Provider Encounter Details Date Type Department Care Team (Late st Contact Info) Description 08/05/2007 Emergency [facility] Emergency Department [address] [place] [address] Ed, Physician NO ADDRESS ON [...] on file Legal Sex Female 5:22 AM SILO FILLER Gender Identity Not on file Sexual Orientation Not on file documented as of this encounter Plan of Treatment Not on file documented as of this encounter Procedures Procedure Name Priority Date/Time Associated Diagnosis Comments CT HEAD WO CONTRAST Routine 08/05/2007 6 :19 PM SILO FILLER XR CHEST PA AND LATERAL 2 VW Routine 08/05/2007 5:14 PM SILO FILLER CBC WITH DIFFERENTIAL Stat 08/05/2007 4:15 PM SILO FILLER BASIC METABOLIC PANEL Stat 08/05/2007 4:15 PM SILO FILLER documented in this encounter Results * CT HEAD WO CONTRAST (08/05/2007 6:19 PM SILO FILLER) Anatomical Region Laterality Modality Head Other 08/05/2007 6:19 PM SILO FILLER Narrative 08/05/2007 6:33 PM SILO FILLER The posterior fossa is grossly normal. The [...] CHEST PA AND LATERAL (08/05/2007 5:14 PM SILO FILLER) Anatomical Region Laterality Modality Chest Other 08/05/2007 5:14 PM SILO FILLER Narrative 08/05/2007 7:38 PM SILO FILLER The heart and mediastinum are normal in [...] (ABNORMAL) CBC WITH DIFFERENTIAL (08/05/2007 4:15 PM SILO FILLER) EOSINOPHIL ABSOLUTE 0.3 0.0 - 0.7 K/ul [facility] RBC 4.46 4.20 - 5.40 Mil/ul [facility] LYMPHOCYTES 31.5 24.0 - 44.0 % [facility] MCHC 33.2 30.0 - 35.0 g/dL [facility] LYMPHOCYTE ABSOLUTE 2.6 1.2 - 4.0 K/ul [facility] MCV 87.0 84.0 - 103.0 Fl [facility] MPV 9.8 8.9 - 12.8 Fl [facility] BASOPHILS ABSOLUTE 0.1 0.0 - 0.2 K/ul [facility] BASOPHILS 0.6 0.0 - 1.0 % [facility] HEMOGLOBIN 12.9 12.0 - 16.0 g/dL [facility] RDW 14.6(H) 11.0 - 14.5 % [facility] MONOCYTE ABSOLUTE 0.7(H) 0.1 - 0.6 K/ul [facility] MONOCYTES 7.7 2.0 - 10.0 % [facility] WBC 8.4 4.5 - 11.0 K/ul [facility] MCH 28.9 27.0 - 34.0 pg [facility] NEUTROPHIL ABSOLUTE 4.8 2.0 - 8.0 K/ul [facility] NEUTROPHILS 56.7 42.2 - 75.2 % [facility] HEMATOCRIT 38.8 36.0 - 46.0 % [facility] EOSINOPHILS 3.5 0.0 - 7.0 % [facility] PLATELETS 232 140 - 440 K/ul [facility] Blood specimen (specimen) 08/05/2007 4:15 PM SILO FILLER 08/05/2007 4:26 PM SILO FILLER Hemant Bran MD HEMATOLOGY ORDERABLES Destiny l Result Performing Organization Address [facility] de Phone Number [facility] [address] [place] [address] * (ABNORMAL) BASIC METABOLIC PANEL (08/05/2007 4:15 PM SILO FILLER) ANION GAP 9 9 - 20 mEq/L [facility] BUN 14 7 - 17 mg/dL [facility] CO2 19(L) 22 - 32 mmol/l [facility] OSMOLALITY, CALCULATED 290 275 - 295 mOsm/Kg [facility] POTASSIUM 3.9 3.5 - 5.0 mEq/L [facility] CREATININE 0.9 0.7 - 1.2 mg/dL [facility] CALCIUM 9.4 8.4 - 10.5 mg/dL [facility] GLUCOSE 105 70 - 110 mg/dL [facility] CHLORIDE 117(H) 95 - 110 mEq/L [facility] SODIUM 141 136 - 145 mEq/L [facility] Blood specimen (specimen) 08/05/2007 4:15 PM SILO FILLER 08/05/2007 4:26 PM SILO FILLER Hemant Bran MD CHEMISTRY ORDERABLES Final Result Performing Organization Address [facility] de Phone Number [facility] [address] [place] [address] documented in this encounter Visit Diagnoses Diagnosis [...] 10/30/13 Resolved 11/04/2013 11/04/2013 8 10:33 AM SILO FILLER R/O COVID-19 12/25/2019 12/25/2019 12/26/2019 2:46 PM CDT R/O COVID-19 05/09/2020 05/09/2020 05/09/2020 12:1 7 PM SILO FILLER documented as of this encounter Care Teams Engineering Administrator Relationship Specialty Start Date End Date Dara Tavera FNP [address] [place] [address] PCP - General NURSE PRACTITIONER 10/13/18 documented as of this encounter
--- OUTSIDE RECORDS SUMMARY | 2025-04-20 21:14 | XMS_ITS | Encounter Summary ---
Author Organization [facility] Address [address] [place] [address] Care Team Providers Care Training Development Manager Name Role Phone Dara Tavera Primary Care Provider [phone] Encounter Details Date Type Department Care Team (Latest Contact Info) Description 08/19/2003 Outpatient Historical [facility] Urology- [address]tr[address], [address] [place] [address] Hossein Blair MD NO ADDRESS ON FILE FEMALE STRESS INCONTINENCE (Primary Dx); REMOVAL INT FIXATION DEVICE Social History Tobacco Use Types Packs/Day Years Used Date Smoking Tobacco: Never Assessed Comments Unknown Sex and Gender Information Value Date Recorded Sex Assigned at Not on file Legal Sex Female 5:22 AM NUMERICAL CONTROL MACHINE OPERATOR Gender Identity Not on file [...] 10/30/13 Resolved 11/04/2013 11/04/2013 8 10:33 AM NUMERICAL CONTROL MACHINE OPERATOR R/O COVID-19 12/25/2019 12/25/2019 12/26/2019 2:46 PM CDT R/O COVID-19 05/09/2020 05/09/2020 05/09/2020 12:1 7 PM NUMERICAL CONTROL MACHINE OPERATOR documented as of this encounter Care Teams Training Development Manager Relationship Specialty Start Date End Date Dara Tavera FNP [address] [place] [phone] PCP - General NURSE PRACTITIONER 10/13/18 documented as of this encounter
--- OUTSIDE RECORDS SUMMARY | 2025-04-20 21:14 | XMS_ITS | Encounter Summary ---
Author Organization [facility] Address [address] [place] [address] Care Team Providers Care Production Expediter Name Role Phone Dara Tavera AMANDEEP Primary Care Provider Encounter Details Date Type Department Care Team (Latest Contact Info) Description 09/24/2002 Outpatient Historical [facility] 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
--- OUTSIDE RECORDS SUMMARY | 2025-04-20 21:14 | XMS_ITS | Encounter Summary ---
Author Organization [facility] Address [address] [place] [address] Care Team Providers Care Cheesemaking Laborer Name Role Phone Dara Tavera LAST REMODELER REPAIRER Primary Care Provider Encounter Details Date Type Department Care Team (Latest Contact Info) Description 09/03/2003 Outpatient Historical [facility] Behavioral Clinical Services [address] [place] [address] Hood Kerr Jr., MD [address] [place] [address] SCHIZOAFFECTIVE-UNSP EC (CMS/HCC) (Primary Dx) Social History Tobacco Use Types Packs/Day Years Used Date Smoking Tobacco: Never Assessed Comments Unknown Sex and Gender Information Value Date Recorded Sex Assigned at Not on file Legal Sex Female 5:22 AM SILVICULTURE TEACHER Gender Identity Not on file Sexual Orientation Not on file documented as of this encounter Plan of Treatment Not on file documented as of this encounter Visit Diagnoses Diagnosis Schizoaffective disorder, unspecified condition (CMS/HCC)- Primary Schizoaffective disorder, unspecified condition documented in this encounter Additional Health Concerns Infection Onset Date Last Indicated Resolved Time VRE Comment:Urine 10/30/13 Resolved 11/04/2013 11/04/2013 8 10:33 AM SILVICULTURE TEACHER R/O COVID-19 12/25/2019 12/25/2019 12/26/2019 2:46 PM CDT R/O COVID-19 05/09/2020 05/09/2020 05/09/2020 12:1 7 PM SILVICULTURE TEACHER documented as of this encounter Care Teams Cheesemaking Laborer Relationship Specialty Start Date End Date Dara Tavera FNP [address] [place] [phone] PCP - General NURSE PRACTITIONER 10/13/18 documented as of this encounter
--- OUTSIDE RECORDS SUMMARY | 2025-04-20 21:14 | XMS_ITS | Encounter Summary ---
Author Organization [facility] Address [address] [place] [address] Care Team Providers Care Munitions Handler Supervisor Name Role Phone Dara Tavera Primary Care Provider Encounter Details Date Type Department Care Team (Late st Contact Info) Description 11/04/2003 Outpatient Historical [facility] [address] [place] [address] Hood Kerr Jr., MD [address] [place] [address] Social History Tobacco Use Types Packs/Day Years Used Date Smoking Tobacco: Never Assessed Comments Unknown Sex and Gender Information Value Date Recorded Sex Assigned at Not on file Legal Sex Female 5:22 AM INDUSTRY SEGMENT SPECIALIST Gender Identity Not on file Sexual Orientation Not on file documented as of this encounter Plan of Treatment Not on file documented as of this encounter Visit Diagnoses Not on filedocumented in this encounter Additional Health Concerns Infection Onset Date Last Indicated Resolved Time VRE Comment:Urine 10/30/13 Resolved 11/04/2013 11/04/2013 8 10:33 AM INDUSTRY SEGMENT SPECIALIST R/O COVID-19 12/25/2019 12/25/2019 12/26/2019 2:46 PM CDT R/O COVID-19 05/09/2020 05/09/2020 05/09/2020 12:1 7 PM INDUSTRY SEGMENT SPECIALIST documented as of this encounter Care Teams Munitions Handler Supervisor Relationship Specialty Start Date End Date Dara Tavera FNP [address] [place] [phone] PCP - General NURSE PRACTITIONER 10/13/18 documented as of this encounter
--- OUTSIDE RECORDS SUMMARY | 2025-04-20 21:14 | XMS_ITS | Encounter Summary ---
Author Organization [facility] Address [address] [place] [address] Care Team Providers Care Aerobics Instructor Name Role Phone Dara Tavera AMANDEEP Primary Care Provider [phone] Encounter Details Date Type Department Care Team (Latest Contact Info) Description 04/01/2008 Outpatient Historical [facility] [address] [place] [address] AMBULANCE, [facility] Unspecified Asthma; Unspecified Nonpsychotic Mental Disorder; Other Convulsions (CMS/HCC); Tobacco Use Disorder; Personal History of Allergy to Analgesic Agent; Personal History of Allergy to Other Specified Medicinal Agents Social History Tobacco Use Types Packs/Day Years Used Date Smoking Tobacco: Never Assessed Comments Unknown Sex and Gender Information Value Date Recorded Sex Assigned at Not on file Legal Sex Female 5:22 AM MASK DESIGNER Gender Identity Not on file Sexual [...] 10/30/13 Resolved 11/04/2013 11/04/2013 8 10:33 AM MASK DESIGNER R/O COVID-19 12/25/2019 12/25/2019 12/26/2019 2:46 PM CDT R/O COVID-19 05/09/2020 05/09/2020 05/09/2020 12:1 7 PM MASK DESIGNER documented as of this encounter Care Teams Aerobics Instructor Relationship Specialty Start Date End Date Dara Tavera FNP [address] [place] [phone] PCP - General NURSE PRACTITIONER 10/13/18 documented as of this encounter
--- OUTSIDE RECORDS SUMMARY | 2025-04-20 21:14 | XMS_ITS | Encounter Summary ---
Author Organization [facility] Address [address] [place] [address] Care Team Providers Care Delivery Coordinator Name Role Phone Dara Tavera Primary Care Provider [phone] Encounter Details Date Type Department Care Team (Late st Contact Info) Description 07/31/1997 Outpatient Historical [facility] Social History Tobacco Use Types Packs/Day Years Used Date Smoking Tobacco: Never Assessed Comments Unknown Sex and Gender Information Value Date Recorded Sex Assigned at Not on file Legal Sex Female 5:22 AM BID CLERK Gender Identity Not on file Sexual Orientation Not on file documented as of this encounter Plan of Treatment Not on file documented as of this encounter Visit Diagnoses Not on filedocumented in this encounter Additional Health Concerns Infection Onset Date Last Indicated Resolved Time VRE Comment:Urine 10/30/13 Resolved 11/04/2013 11/04/2013 8 10:33 AM BID CLERK R/O COVID-19 12/25/2019 12/25/2019 12/26/2019 2:46 PM CDT R/O COVID-19 05/09/2020 05/09/2020 05/09/2020 12:1 7 PM BID CLERK documented as of this encounter Care Teams Delivery Coordinator Relationship Specialty Start Date End Date Dara Tavera FNP [address] [place] [phone] PCP - General NURSE PRACTITIONER 10/13/18 documented as of this encounter
--- OUTSIDE RECORDS SUMMARY | 2025-04-20 21:14 | XMS_ITS | Encounter Summary ---
Author Organization [facility] Address [address] [place] [address] Care Team Providers Care Consultants Intern Name Role Phone Dara Tavera Primary Care Provider Encounter Details Date Type Department Care Team (Latest Contact Info) Description 07/31/2003 Inpatient Historical [facility] Operating Room [address] [place] [address] Hossein Blair MD NO ADDRESS ON FILE FB BLADDER & URETHRA (Primary Dx) Social History Tobacco Use Types Packs/Day Years Used Date Smoking Tobacco: Never Assessed Comments Unknown Sex and Gender Information Value Date Recorded Sex Assigned at Not on file Legal Sex Female 5:22 AM TRIMMING CASER Gender Identity Not on file Sexual Orientation Not on file documented as of this encounter Plan of Treatment Not on file documented as of this encounter Visit Diagnoses Diagnosis Foreign body in bladder and urethra- Primary documented in this encounter Additional Health Concerns Infection Onset Date Last Indicated Resolved Time VRE Comment:Urine 10/30/13 Resolved 11/04/2013 11/04/2013 8 10:33 AM TRIMMING CASER R/O COVID-19 12/25/2019 12/25/2019 12/26/2019 2:46 PM CDT R/O COVID-19 05/09/2020 05/09/2020 05/09/2020 12:1 7 PM TRIMMING CASER documented as of this encounter Care Teams Consultants Intern Relationship Specialty Start Date End Date Dara Tavera FNP [address] [place] [address] PCP - General NURSE PRACTITIONER 10/13/18 documented as of this encounter
--- OUTSIDE RECORDS SUMMARY | 2025-04-20 21:14 | XMS_ITS | Encounter Summary ---
Author Organization [facility] Address [address] [place]: [place] [address] Care Team Providers Care Emergency Management System Director Name Role Phone Dara Tavera Primary Care Provider Encounter Details Date Type Department Care Team ([facility] Contact Info) Description 10/29/2001 Outpatient Historical Non-Staff, Physician NO ADDRESS ON FILE Social History Tobacco Use Types Packs/Day Years Used Date Smoking Tobacco: Never Assessed Comments Unknown Sex and Gender Information Value Date Recorded Sex Assigned at Not on file Legal Sex Female 5:22 AM SPREADING MACHINE OPERATOR Gender Identity Not on file Sexual Orientation Not on file documented as of this encounter Plan of Treatment Not on file documented as of this encounter Visit Diagnoses Not on filedocumented in this encounter Additional Health Concerns Infection Onset Date Last Indicated Resolved Time VRE Comment:Urine 10/30/13 Resolved 11/04/2013 11/04/2013 8 10:33 AM SPREADING MACHINE OPERATOR R/O COVID-19 12/25/2019 12/25/2019 12/26/2019 2:46 PM CDT R/O COVID-19 05/09/2020 05/09/2020 05/09/2020 12:1 7 PM SPREADING MACHINE OPERATOR documented as of this encounter Care Teams Emergency Management System Director Relationship Specialty Start Date End Date Dara Tavera FNP [address] [place] [phone] PCP - General NURSE PRACTITIONER 10/13/18 documented as of this encounter
--- OUTSIDE RECORDS SUMMARY | 2025-04-20 21:14 | XMS_ITS | Encounter Summary ---
Author Organization [facility] Address [address] [place]: [place] [address] Care Team Providers Care Steel Worker Name Role Phone Dara Tavera Primary Care Provider Encounter Details Date Type Department Care Team (Late st Contact Info) Description 11/12/1999 Outpatient Historical [place] [place], [address] [place] [id number] Social History Tobacco Use Types Packs/Day Years Used Date Smoking Tobacco: Never Assessed Comments Unknown Sex and Gender Information Value Date Recorded Sex Assigned at Not on file Legal Sex Female 5:22 AM PERINATAL TECH Gender Identity Not on file Sexual Orientation Not on file documented as of this encounter Plan of Treatment Not on file documented as of this encounter Visit Diagnoses Not on filedocumented in this encounter Additional Health Concerns Infection Onset Date Last Indicated Resolved Time VRE Comment:Urine 10/30/13 Resolved 11/04/2013 11/04/2013 8 10:33 AM PERINATAL TECH R/O COVID-19 12/25/2019 12/25/2019 12/26/2019 2:46 PM CDT R/O COVID-19 05/09/2020 05/09/2020 05/09/2020 12:1 7 PM PERINATAL TECH documented as of this encounter Care Teams Steel Worker Relationship Specialty Start Date End Date Dara Tavera FNP [address] [place] [phone] PCP - General NURSE PRACTITIONER 10/13/18 documented as of this encounter
--- OUTSIDE RECORDS SUMMARY | 2025-04-20 21:14 | XMS_ITS | Encounter Summary ---
Author Organization [facility] Address [address] [place] [address] Care Team Providers Care Parts Fabricator Name Role Phone Dara Tavera AMANDEEP Primary Care Provider Encounter Details Date Type Department Care Team (Late st Contact Info) Description 07/22/2007 Emergency [facility] Emergency Department [address] [place] [address] Ed, Physician NO ADDRESS ON FILE Amaury De La Rosa MD NO ADDRESS ON FILE Social History Tobacco Use Types Packs/Day Years Used Date Smoking Tobacco: Never Assessed Comments Unknown Sex and Gender Information Value Date Recorded Sex Assigned at Not on file Legal Sex Female 5:22 AM SALES PROGRAM MANAGER Gender Identity Not on file Sexual Orientation Not on file documented as of this encounter Plan of Treatment Not on file documented as of this encounter Procedures Procedure Name Priority Date/Time Associated Diagnosis Comments URINALYSIS MICROSCOPY ONLY Routine 07/22/2007 12:38 PM SALES PROGRAM MANAGER URINALYSIS W/REFLEX MICROSCOPIC Routine 07/22/2007 12:38 PM SALES PROGRAM MANAGER URINE CULTURE Stat 07/22/2007 12:38 PM SALES PROGRAM MANAGER documented in this encounter Results * (ABNORMAL) URINALYSIS MICROSCOPY ONLY (07/22/2007 12:38 PM SALES PROGRAM MANAGER) WBC URINE None Seen 0 - 2 INTERFACE SYSTEM RBC UA None Seen 0 - 2 INTERFACE SYSTEM HYALINE CAST None Seen 0 - 2 INTERFA CE SYSTEM BACTERIA UA Few(A) None Seen INTERFAC E SYSTEM 07/22/2007 12:3 8 PM SALES PROGRAM MANAGER Amaury De La Rosa MD URINE ORDERABLES Edited Performing Organization Address [facility] Phone Number INTERFACE SYSTEM Refer to clinic/hospital department * (ABNORMAL) URINALYSIS (07/22/2007 12:38 PM SALES PROGRAM MANAGER) COLOR UA Dark Yellow Straw INTERFAC [...] No INTERFACE SYSTEM 07/22/2007 12:3 8 PM SALES PROGRAM MANAGER Amaury De La Rosa MD URINE ORDERABLES Edited Performing Organization Address [facility] Phone Number INTERFACE SYSTEM Refer to clinic/hospital department * URINE CULTURE (07/22/2007 12:38 PM SALES PROGRAM MANAGER) FINAL REPORT No growth INTERFA CE SYSTEM 07/22/2007 12:3 8 PM SALES PROGRAM MANAGER 07/22/2007 3:01 PM SALES PROGRAM MANAGER Result [facility] Amaury De La Rosa MD MICROBIOLOGY - GENERAL ORDERABLE S Final Result Performing Organization Address [facility] Phone Number INTERFACE SYSTEM Refer to clinic/hospital department documented in this encounter Visit Diagnoses Not on filedocumented in this encounter Additional Health Concerns Infection Onset Date Last Indicated Resolved Time VRE Comment:Urine 10/30/13 Resolved 11/04/2013 11/04/2013 8 10:33 AM SALES PROGRAM MANAGER R/O COVID-19 12/25/2019 12/25/2019 12/26/2019 2:46 PM CDT R/O COVID-19 05/09/2020 05/09/2020 05/09/2020 12:1 7 PM SALES PROGRAM MANAGER documented as of this encounter Care Teams Parts Fabricator Relationship Specialty Start Date End Date Dara Tavera FNP [address] [place] [phone] PCP - General NURSE PRACTITIONER 10/13/18 documented as of this encounter
--- OUTSIDE RECORDS SUMMARY | 2025-04-20 21:14 | XMS_ITS | Encounter Summary ---
Author Organization [facility] Address [address] [place] [address] Care Team Providers Care Welding Machine Operator Gas Name Role Phone Dara Tavera AMANDEEP Primary Care Provider Encounter Details Date Type Department Care Team (Late st Contact Info) Description 08/11/2007 Emergency [facility] Emergency Department [address] [place] [address] Ed, Physician NO ADDRESS ON FILE Amaury De La Rosa MD NO ADDRESS ON FILE Social History Tobacco Use Types Packs/Day Years Used Date Smoking Tobacco: Never Assessed Comments Unknown Sex and Gender Information Value Date Recorded Sex Assigned at Not on file Legal Sex Female 5:22 AM EQUIPMENT HIRE MANAGER Gender Identity Not on file Sexual Orientation Not on file documented as of this encounter Plan of Treatment Not on file documented as of this encounter Procedures Procedure Name Priority Date/Time Associated Diagnosis Comments XR ABDOMEN 1 VW Routine 08/12/2007 4:46 AM EQUIPMENT HIRE MANAGER CBC WITH DIFFERENTIAL Stat 08/12/2007 4:19 AM EQUIPMENT HIRE MANAGER LIPASE Stat 08/12/2007 4:19 AM EQUIPMENT HIRE MANAGER COMPREHENSIVE METABOLIC PANEL Stat 08/12/2007 4:19 AM EQUIPMENT HIRE MANAGER URINALYSIS W/REFLEX MICROSCOPIC Stat 08/12/2007 3:10 AM EQUIPMENT HIRE MANAGER documented in this encounter Results * XR ABDOMEN 1 VW (08/12/2007 4:46 AM EQUIPMENT HIRE MANAGER) Anatomical Region Laterality Modality Abdomen Other 08/12/2007 4:46 AM EQUIPMENT HIRE MANAGER Narrative 08/12/2007 4:46 AM EQUIPMENT HIRE MANAGER Exam: KUB Date/Time of Exam: Aug 12, [...] * CBC WITH DIFFERENTIAL (08/12/2007 4:19 AM EQUIPMENT HIRE MANAGER) RBC 4.56 4.20 - 5.40 Mil/ul [facility] MCHC 33.8 30.0 - 35.0 g/dL [facility] LYMPHOCYTE ABSOLUTE 2.2 1.2 - 4.0 K/ul [facility] LYMPHOCYTES 25.6 24.0 - 44.0 % [facility] MCV 86.4 84.0 - 103.0 Fl [facility] BASOPHILS 0.7 0.0 - 1.0 % [facility] MPV 9.9 8.9 - 12.8 Fl [facility] BASOPHILS ABSOLUTE 0.1 0.0 - 0.2 K/ul [facility] HEMOGLOBIN 13.3 12.0 - 16.0 g/dL [facility] MONOCYTES 6.3 2.0 - 10.0 % [facility] RDW 14.1 11.0 - 14.5 % [facility] MONOCYTE ABSOLUTE 0.5 0.1 - 0.6 K/ul [facility] WBC 8.6 4.5 - 11.0 K/ul [facility] NEUTROPHILS 65.3 42.2 - 75.2 % [facility] MCH 29.2 27.0 - 34.0 pg [facility] NEUTROPHIL ABSOLUTE 5.6 2.0 - 8.0 K/ul [facility] HEMATOCRIT 39.4 36.0 - 46.0 % [facility] PLATELETS 233 140 - 440 K/ul [facility] EOSINOPHIL ABSOLUTE 0.2 0.0 - 0.7 K/ul [facility] EOSINOPHILS 2.1 0.0 - 7.0 % [facility] Blood specimen (specimen) 08/12/2007 4:19 AM EQUIPMENT HIRE MANAGER 08/12/2007 4:22 AM EQUIPMENT HIRE MANAGER us Amaury De La Rosa MD HEMATOLOGY ORDERABLES Final Resu lt [facility] [address] [place] [address] * (ABNORMAL) COMPREHENSIVE METABOLIC PANEL (08/12/2007 4:19 AM EQUIPMENT HIRE MANAGER) GLUCOSE 99 70 - 110 mg/dL [facility] ALKALINE PHOSPHATASE 134(H) 25 - 100 U/L [facility] CHLORIDE 108 95 - 110 mEq/L [facility] ALBUMIN/GLOBULIN RATIO 1.4 1.0 - 2.3 [facility] TOTAL PROTEIN 7.8 6.3 - 8.2 g/dL [facility] SODIUM 136 136 - 145 mEq/L [facility] BILIRUBIN TOTAL 0.2(L) 0.3 - 1.2 mg/dL [facility] BUN 20(H) 7 - 17 mg/dL [facility] CO2 23 22 - 32 mmol/l [facility] ANION GAP 9 9 - 20 mEq/L [facility] AST 20 8 - 33 U/L [facility] POTASSIUM 4.1 3.5 - 5.0 mEq/L [facility] GLOBULIN (CALC) 3.3 2.4 - 3.9 g/dL [facility] ALBUMIN 4.5 3.5 - 5.0 g/dL [facility] CREATININE 0.8 0.7 - 1.2 mg/dL [facility] ALT 24 4 - 36 IU/L [facility] CALCIUM 9.7 8.4 - 10.5 mg/dL [facility] OSMOLALITY, CALCULATED 283 275 - 295 mOsm/Kg [facility] Blood specimen (specimen) 08/12/2007 4:19 AM EQUIPMENT HIRE MANAGER 08/12/2007 4:22 AM EQUIPMENT HIRE MANAGER us Amaury De La Rosa MD CHEMISTRY ORDERABLES Final Resul t Performing Organization Address [facility] de Phone Number [facility] [address] [place] [address] * LIPASE (08/12/2007 4:19 AM EQUIPMENT HIRE MANAGER) Pathologist [facility] LIPASE 49 6 - 51 U/L [facility] Blood specimen (specimen) 08/12/2007 4:19 AM EQUIPMENT HIRE MANAGER 08/12/2007 4:22 AM EQUIPMENT HIRE MANAGER Amaury De La Rosa MD CHEMISTRY ORDERABLES Final Resul t Performing Organization Address [facility] Co de Phone Number [facility] [address] [place] [address] * URINALYSIS (08/12/2007 3:10 AM EQUIPMENT HIRE MANAGER) CLARITY UA Clear Clear [facility] GLUCOSE UA NEGATIVE NEGATIVE [facility] SPECIFIC GRAVITY UA 1.010 <=1.005 [facility] PH UA 7.0 5.0 - 9.0 [facility] BILIRUBIN UA NEGATIVE NEGATIVE [facility] LEUKOCYTE ESTERASE UA NEGATIVE NEGATIVE [facility] MICRO EXAM No No [facility] KETONES UA NEGATIVE NEGATIVE [facility] COLOR UA Yellow Straw [facility] PROTEIN UA NEGATIVE NEGATIVE [facility] BLOOD UA NEGATIVE NEGATIVE [facility] NITRITE UA NEGATIVE NEGATIVE [facility] UROBILINOGEN UA 0.2 0.2 [facility] Urine, clean catch 08/12/2007 3:10 AM EQUIPMENT HIRE MANAGER 08/12/2007 3:12 AM EQUIPMENT HIRE MANAGER us Physician Sj Ed URINE ORDERABLES Final Result Performing Organization Address City/State/[facility] Co de Phone Number [facility] [address] [place] [address] documented in this encounter Visit Diagnoses Not on filedocumented in this encounter Additional Health Concerns Infection Onset Date Last Indicated Resolved Time VRE Comment:Urine 10/30/13 Resolved 11/04/2013 11/04/2013 8 10:33 AM EQUIPMENT HIRE MANAGER R/O COVID-19 12/25/2019 12/25/2019 12/26/2019 2:46 PM CDT R/O COVID-19 05/09/2020 05/09/2020 05/09/2020 12:1 7 PM EQUIPMENT HIRE MANAGER documented as of this encounter Care Teams Welding Machine Operator Gas Relationship Specialty Start Date End Date Dara Tavera FNP [address] [place] [address] PCP - General NURSE PRACTITIONER 10/13/18 documented as of this encounter
--- OUTSIDE RECORDS SUMMARY | 2025-04-20 21:14 | XMS_ITS | Encounter Summary ---
Author Organization [facility] Address [address] [place] [address] Care Team Providers Care Bottom Scrubber Name Role Phone Dara Tavera Primary Care Provider [phone] Encounter Details Date Type Department Care Team (Late st Contact Info) Description 08/06/2007 [facility] [address] [place] [address] Tej Will MD [address] [address] Social History Tobacco Use Types Packs/Day Years Used Date Smoking Tobacco: Never Assessed Comments Unknown Sex and Gender Information Value Date Recorded Sex Assigned at Not on file Legal Sex Female 5:22 AM FLOOR DIRECTOR Gender Identity Not on file Sexual Orientation Not on file documented as of this encounter Plan of Treatment Not on file documented as of this encounter Visit Diagnoses Not on filedocumented in this encounter Additional Health Concerns Infection Onset Date Last Indicated Resolved Time VRE Comment:Urine 10/30/13 Resolved 11/04/2013 11/04/2013 8 10:33 AM FLOOR DIRECTOR R/O COVID-19 12/25/2019 12/25/2019 12/26/2019 2:46 PM CDT R/O COVID-19 05/09/2020 05/09/2020 05/09/2020 12:1 7 PM FLOOR DIRECTOR documented as of this encounter Care Teams Bottom Scrubber Relationship Specialty Start Date End Date Dara Tavera FNP [address] [place] [phone] PCP - General NURSE PRACTITIONER 10/13/18 documented as of this encounter
--- OUTSIDE RECORDS SUMMARY | 2025-04-20 21:14 | XMS_ITS | Encounter Summary ---
Author Organization [facility] Address [address] [place] [address] Care Team Providers Care Drapery And Upholstery Measurer Name Role Phone Dara Tavera AMANDEEP Primary Care Provider [phone] Encounter Details Date Type Department Care Team (Late st Contact Info) Description 08/21/2007 Emergency [facility] Emergency Department [address] [place] [address] Ed, Physician NO ADDRESS ON FILE Flex Ricks MD NO ADDRESS ON FILE Social History Tobacco Use Types Packs/Day Years Used Date Smoking Tobacco: Never Assessed Comments Unknown Sex and Gender Information Value Date Recorded Sex Assigned at Not on file Legal Sex Female 5:22 AM HOUSE SHORER Gender Identity Not on file Sexual Orientation Not on file documented as of this encounter Plan of Treatment Not on file documented as of this encounter Procedures Procedure Name Priority Date/Time Associated Diagnosis Comments CT ABDOMEN PELVIS WO CONTRAST Routine 08/21/2007 11:56 PM HOUSE SHORER CBC WITH DIFFERENTIAL Stat 08/21/2007 11:44 PM HOUSE SHORER BASIC METABOLIC PANEL Stat 08/21/2007 11:44 PM HOUSE SHORER URINALYSIS W/REFLEX MICROSCOPIC Stat 08/21/2007 10:16 PM HOUSE SHORER documented in this encounter Results * CT ABDOMEN PELVIS WO CONTRAST (08/21/2007 11:56 PM HOUSE SHORER) Anatomical Region Laterality Modality Abdomen Other 08/21/2007 11:5 6 PM HOUSE SHORER Narrative 08/22/2007 12:[address] Scan For Renal Colic: Date: 08/21/2007 [...] * CBC WITH DIFFERENTIAL (08/21/2007 11:44 PM HOUSE SHORER) LYMPHOCYTE ABSOLUTE 2.5 1.2 - 4.0 K/ul [facility] LYMPHOCYTES 24.0 24.0 - 44.0 % [facility] MCV 88.3 84.0 - 103.0 Fl [facility] BASOPHILS 0.6 0.0 - 1.0 % [facility] MPV 9.8 8.9 - 12.8 Fl [facility] BASOPHILS ABSOLUTE 0.1 0.0 - 0.2 K/ul [facility] HEMOGLOBIN 12.6 12.0 - 16.0 g/dL [facility] MONOCYTES 4.8 2.0 - 10.0 % [facility] RDW 14.0 11.0 - 14.5 % [facility] MONOCYTE ABSOLUTE 0.5 0.1 - 0.6 K/ul [facility] WBC 10.5 4.5 - 11.0 K/ul [facility] NEUTROPHILS 68.9 42.2 - 75.2 % [facility] MCH 28.9 27.0 - 34.0 pg [facility] NEUTROPHIL ABSOLUTE 7.2 2.0 - 8.0 K/ul [facility] HEMATOCRIT 38.5 36.0 - 46.0 % [facility] PLATELETS 284 140 - 440 K/ul [facility] EOSINOPHIL ABSOLUTE 0.2 0.0 - 0.7 K/ul [facility] EOSINOPHILS 1.7 0.0 - 7.0 % [facility] RBC 4.36 4.20 - 5.40 Mil/ul [facility] MCHC 32.7 30.0 - 35.0 g/dL [facility] Blood specimen (specimen) 08/21/2007 11:44 PM HOUSE SHORER 08/21/2007 11:49 PM HOUSE SHORER us Flex Ricks MD HEMATOLOGY ORDERABLES Destiny ricks Result [facility] [address] [place] [address] * (ABNORMAL) BASIC METABOLIC PANEL (08/21/2007 11:44 PM HOUSE SHORER) CREATININE 0.8 0.7 - 1.2 mg/dL [facility] CALCIUM 9.8 8.4 - 10.5 mg/dL [facility] GLUCOSE 94 70 - 110 mg/dL [facility] CHLORIDE 112(H) 95 - 110 mEq/L [facility] SODIUM 139 136 - 145 mEq/L [facility] ANION GAP 11 9 - 20 mEq/L [facility] BUN 16 7 - 17 mg/dL [facility] CO2 20(L) 22 - 32 mmol/l [facility] OSMOLALITY, CALCULATED 286 275 - 295 mOsm/Kg [facility] POTASSIUM 3.6 3.5 - 5.0 mEq/L [facility] Blood specimen (specimen) 08/21/2007 11:44 PM HOUSE SHORER 08/21/2007 11:49 PM HOUSE SHORER Flex Ricks MD CHEMISTRY ORDERABLES Final Result [facility] [address] [place] [address] * URINALYSIS (08/21/2007 10:16 PM HOUSE SHORER) Pathologist [facility] CLARITY UA Clear Clear [facility] GLUCOSE UA NEGATIVE NEGATIVE [facility] SPECIFIC GRAVITY UA 1.025 <=1.005 [facility] PH UA 6.5 5.0 - 9.0 [facility] BILIRUBIN UA NEGATIVE NEGATIVE [facility] LEUKOCYTE ESTERASE UA NEGATIVE NEGATIVE [facility] MICRO EXAM No No [facility] KETONES UA NEGATIVE NEGATIVE [facility] COLOR UA Yellow Straw [facility] PROTEIN UA NEGATIVE NEGATIVE [facility] BLOOD UA NEGATIVE NEGATIVE [facility] NITRITE UA NEGATIVE NEGATIVE [facility] UROBILINOGEN UA 0.2 0.2 [facility] Urine, clean catch 08/21/2007 10:16 PM HOUSE SHORER 08/21/2007 10:16 PM HOUSE SHORER us Physician Sj Ed URINE ORDERABLES Final Result Performing Organization Address City/State/[facility] Co de Phone Number [facility] [address] [place] [address] documented in this encounter Visit Diagnoses Not on filedocumented in this encounter Additional Health Concerns Infection Onset Date Last Indicated Resolved Time VRE Comment:Urine 10/30/13 Resolved 11/04/2013 11/04/2013 8 10:33 AM HOUSE SHORER R/O COVID-19 12/25/2019 12/25/2019 12/26/2019 2:46 PM CDT R/O COVID-19 05/09/2020 05/09/2020 05/09/2020 12:1 7 PM HOUSE SHORER documented as of this encounter Care Teams Drapery And Upholstery Measurer Relationship Specialty Start Date End Date Dara Tavera FNP [address] [place] [phone] PCP - General NURSE PRACTITIONER 10/13/18 documented as of this encounter
--- OUTSIDE RECORDS SUMMARY | 2025-04-20 21:14 | XMS_ITS | Encounter Summary ---
Author Organization [facility] Address [address] [place] [address] Care Team Providers Care Environmental Health And Safety Manager Name Role Phone Dara Tavera Primary Care Provider Encounter Details Date Type Department Care Team (Late st Contact Info) Description 07/12/2007 Emergency [facility] Emergency Department [address] [place] [address] Ed, Physician NO ADDRESS ON FILE Oniel Sainz MD [address] [place] [address] Social History Tobacco Use Types Packs/Day Years Used Date Smoking Tobacco: Never Assessed Comments Unknown Sex and Gender Information Value Date Recorded Sex Assigned at Not on file Legal Sex Female 5:22 AM ACCOUNT GROUP SUPERVISOR Gender Identity Not on file Sexual Orientation Not on file documented as of this encounter Plan of Treatment Not on file documented as of this encounter Visit Diagnoses Not on filedocumented in this encounter Additional Health Concerns Infection Onset Date Last Indicated Resolved Time VRE Comment:Urine 10/30/13 Resolved 11/04/2013 11/04/2013 8 10:33 AM ACCOUNT GROUP SUPERVISOR R/O COVID-19 12/25/2019 12/25/2019 12/26/2019 2:46 PM CDT R/O COVID-19 05/09/2020 05/09/2020 05/09/2020 12:1 7 PM ACCOUNT GROUP SUPERVISOR documented as of this encounter Care Teams Environmental Health And Safety Manager Relationship Specialty Start Date End Date Dara Tavera FNP [address] [place] [phone] PCP - General NURSE PRACTITIONER 10/13/18 documented as of this encounter
--- OUTSIDE RECORDS SUMMARY | 2025-04-20 21:14 | XMS_ITS | Encounter Summary ---
Author Organization [facility] Address [address] [place] [address] Care Team Providers Care Risk Mgr Name Role Phone Dara Tavera Primary Care Provider [phone] Encounter Details Date Type Department Care Team (Late st Contact Info) Description 03/05/2008 Outpatient Historical [facility] [address] [place] [address] AMBULANCE, [facility] Social History Tobacco Use Types Packs/Day Years Used Date Smoking Tobacco: Never Assessed Comments Unknown Sex and Gender Information Value Date Recorded Sex Assigned at Not on file Legal Sex Female 5:22 AM CAMERA TECHNICIAN Gender Identity Not on file Sexual Orientation Not on file documented as of this encounter Plan of Treatment Not on file documented as of this encounter Visit Diagnoses Not on filedocumented in this encounter Additional Health Concerns Infection Onset Date Last Indicated Resolved Time VRE Comment:Urine 10/30/13 Resolved 11/04/2013 11/04/2013 8 10:33 AM CAMERA TECHNICIAN R/O COVID-19 12/25/2019 12/25/2019 12/26/2019 2:46 PM CDT R/O COVID-19 05/09/2020 05/09/2020 05/09/2020 12:1 7 PM CAMERA TECHNICIAN documented as of this encounter Care Teams Risk Mgr Relationship Specialty Start Date End Date Dara Tavera FNP [address] [place] [phone] PCP - General NURSE PRACTITIONER 10/13/18 documented as of this encounter
--- OUTSIDE RECORDS SUMMARY | 2025-04-20 21:14 | XMS_ITS | Encounter Summary ---
Author Organization [facility] Address [address] [place] [address] Care Team Providers Care Rider Ticket Worker Name Role Phone Dara Tavera Primary Care Provider [phone] Encounter Details Date Type Department Care Team (Latest Contact Info) Description 09/23/2003 Outpatient Historical [facility] [address] [place] [address] Hossein Blair MD NO ADDRESS ON FILE ENURESIS NOS (Primary Dx) Social History Tobacco Use Types Packs/Day Years Used Date Smoking Tobacco: Never Assessed Comments Unknown Sex and Gender Information Value Date Recorded Sex Assigned at Not on file Legal Sex Female 5:22 AM MANAGER RELOCATION Gender Identity Not on file Sexual Orientation Not on file documented as of this encounter Plan of Treatment Not on file documented as of this encounter Visit Diagnoses Diagnosis Unspecified urinary incontinence- Primary documented in this encounter Additional Health Concerns Infection Onset Date Last Indicated Resolved Time VRE Comment:Urine 10/30/13 Resolved 11/04/2013 11/04/2013 8 10:33 AM MANAGER RELOCATION R/O COVID-19 12/25/2019 12/25/2019 12/26/2019 2:46 PM CDT R/O COVID-19 05/09/2020 05/09/2020 05/09/2020 12:1 7 PM MANAGER RELOCATION documented as of this encounter Care Teams Rider Ticket Worker Relationship Specialty Start Date End Date Dara Tavera FNP [address] [place] [address] PCP - General NURSE PRACTITIONER 10/13/18 documented as of this encounter
--- OUTSIDE RECORDS SUMMARY | 2025-04-20 21:14 | XMS_ITS | Encounter Summary ---
Author Organization [facility] Address [address] [place] [address] Care Team Providers Care Screen Printing Supervisor Name Role Phone Dara Tavera AMANDEEP Primary Care Provider Encounter Details Date Type Department Care Team (Late st Contact Info) Description 07/20/2007 Emergency [facility] Emergency Department [address] [place] [address] Ed, Physician NO ADDRESS ON FILE Jorge Danielson III G, DO NO ADDRESS ON FILE Social History Tobacco Use Types Packs/Day Years Used Date Smoking Tobacco: Never Assessed Comments Unknown Sex and Gender Information Value Date Recorded Sex Assigned at Not on file Legal Sex Female 5:22 AM DIRECTOR BUSINESS DEVELOPMENT Gender Identity Not on file Sexual Orientation Not on file documented as of this encounter Plan of Treatment Not on file documented as of this encounter Procedures Procedure Name Priority Date/Time Associated Diagnosis Comments URINALYSIS W/REFLEX MICROSCOPIC Routine 07/21/2007 1:27 AM DIRECTOR BUSINESS DEVELOPMENT XR ABDOMEN 1 VW Stat 07/21/2007 1:21 AM DIRECTOR BUSINESS DEVELOPMENT documented in this encounter Results * URINALYSIS (07/21/2007 1:27 AM DIRECTOR BUSINESS DEVELOPMENT) COLOR UA Yellow Straw INTERFACE SYSTEM CLARITY [...] No No INTERFACE SYSTEM 07/21/2007 1:27 AM DIRECTOR BUSINESS DEVELOPMENT Jorge Colinegers III, DO URINE ORDERABLES Edited INTERFACE SYSTEM Refer to clinic/hospital department * XR ABDOMEN 1 VW (07/21/2007 1:21 AM DIRECTOR BUSINESS DEVELOPMENT) Anatomical Region Laterality Modality Abdomen Other 07/21/2007 1:21 AM DIRECTOR BUSINESS DEVELOPMENT Narrative 07/21/2007 1:21 AM DIRECTOR BUSINESS DEVELOPMENT Surgical clips are present in the gallbladder [...] 11/04/2013 11/04/2013 8 10:33 AM DIRECTOR BUSINESS DEVELOPMENT R/O COVID-19 12/25/2019 12/25/2019 12/26/2019 2:46 PM CDT R/O COVID-19 05/09/2020 05/09/2020 05/09/2020 12:1 7 PM DIRECTOR BUSINESS DEVELOPMENT documented as of this encounter Care Teams Screen Printing Supervisor Relationship Specialty Start Date End Date Dara Tavera FNP [address] [place] [address] PCP - General NURSE PRACTITIONER 10/13/18 documented as of this encounter
--- OUTSIDE RECORDS SUMMARY | 2025-04-20 21:14 | XMS_ITS | Encounter Summary ---
Author Organization [facility] Address [address] [place] [address] Care Team Providers Care Boat Rigger Name Role Phone Dara Tavera Primary Care Provider [phone] Encounter Details Date Type Department Care Team (Late st Contact Info) Description 08/11/2007 Emergency [facility] Emergency Department [address] [place] [address] Ed, Physician NO ADDRESS ON FILE Social History Tobacco Use Types Packs/Day Years Used Date Smoking Tobacco: Never Assessed Comments Unknown Sex and Gender Information Value Date Recorded Sex Assigned at Not on file Legal Sex Female 5:22 AM WET COTTON FEEDER Gender Identity Not on file Sexual Orientation Not on file documented as of this encounter Plan of Treatment Not on file documented as of this encounter Visit Diagnoses Not on filedocumented in this encounter Additional Health Concerns Infection Onset Date Last Indicated Resolved Time VRE Comment:Urine 10/30/13 Resolved 11/04/2013 11/04/2013 8 10:33 AM WET COTTON FEEDER R/O COVID-19 12/25/2019 12/25/2019 12/26/2019 2:46 PM CDT R/O COVID-19 05/09/2020 05/09/2020 05/09/2020 12:1 7 PM WET COTTON FEEDER documented as of this encounter Care Teams Boat Rigger Relationship Specialty Start Date End Date Dara Tavera FNP [address] [place] [phone] PCP - General NURSE PRACTITIONER 10/13/18 documented as of this encounter
--- OUTSIDE RECORDS SUMMARY | 2025-04-20 21:15 | XMS_ITS | Encounter Summary ---
Author Organization [facility] Address [address] [place] [address] Care Team Providers Care Foreign Collection Clerk Name Role Phone Dara Tavera Primary Care Provider Encounter Details Date Type Department Care Team (Latest Contact Info) Description 05/01/[address] [facility] Urology- [address]tr[address], 3rd [place] [address] Mason West MD NO ADDRESS ON FILE Abdominal Pain, Unspecified Site (Primary Dx) Social History Tobacco Use Types Packs/Day Years Used Date Smoking Tobacco: Never Assessed Comments Unknown Sex and Gender Information Value Date Recorded Sex Assigned at Not on file Legal Sex Female 5:22 AM TOMATO GRADER Gender Identity Not on file Sexual Orientation Not on file documented as of this encounter Plan of Treatment Not on file documented as of this encounter Visit Diagnoses Diagnosis Abdominal pain, unspecified site- Primary documented in this encounter Additional Health Concerns Infection Onset Date Last Indicated Resolved Time VRE Comment:Urine 10/30/13 Resolved 11/04/2013 11/04/2013 8 10:33 AM TOMATO GRADER R/O COVID-19 12/25/2019 12/25/2019 12/26/2019 2:46 PM CDT R/O COVID-19 05/09/2020 05/09/2020 05/09/2020 12:1 7 PM TOMATO GRADER documented as of this encounter Care Teams Foreign Collection Clerk Relationship Specialty Start Date End Date Dara Tavera FNP [address] [place] [phone] PCP - General NURSE PRACTITIONER 10/13/18 documented as of this encounter
--- OUTSIDE RECORDS SUMMARY | 2025-04-20 21:15 | XMS_ITS | Encounter Summary ---
Author Organization [facility] Address [address] [place] [address] Care Team Providers Care Printed Circuit Boards Laminator Name Role Phone Dara Tavera AMANDEEP Primary Care Provider Encounter Details Date Type Department Care Team (Late st Contact Info) Description 04/04/2007 Emergency [facility] Emergency Department [address] [place] [address] Thiago Mota MD NO ADDRESS ON FILE Painful Respiration (Primary Dx) Social History Tobacco Use Types Packs/Day Years Used Date Smoking Tobacco: Never Assessed Comments Unknown Sex and Gender Information Value Date Recorded Sex Assigned at Not on file Legal Sex Female 5:22 AM TELEGRAPHIC TYPEWRITER OPERATOR Gender Identity Not on file Sexual [...] MD URINE ORDERABLES Edited Performing Organization Address [facility] Phone Number INTERFACE SYSTEM Refer to clinic/hospital department * CARDIAC ENZYMES (04/04/2007 12:00 PM CDT) Pathologist [facility] TROPONIN I <0.1 0.0 - 1.3 ng/mL INTERFACE SYSTEM Comment: As of 06 the Troponin Reference Range has changed from 0.0-1.5 ng/ml to 0.0- 1.3 ng/ml due to a change in testing methodology. 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
--- OUTSIDE RECORDS SUMMARY | 2025-04-20 21:15 | XMS_ITS | Encounter Summary ---
Author Organization [facility] Address [address] [place] [address] Care Team Providers Care Dressed Poultry Grader Name Role Phone Dara Tavera BACKHAUL DRIVER Primary Care Provider Encounter Details Date [...] on file Legal Sex Female 5:22 AM BOOSTER PUMP OILER Gender Identity Not on file Sexual Orientation Not on file documented as of this encounter Progress Notes * Nam Calvo MD - 06/04/2008 9:18 AM CST NAME LATESHA WILHELM PATIENT # [id number] 1965 AGE 42Y PHYSICIAN NAM CALVO MD/[id number] ADMITTED 05/11/2008 DISMISSED 05/12/2008 REVISED DOCUMENT: 07/11/2008 [facility] DISCHARGE DIAGNOSES: 1. Drug overdose. SECONDARY [...] was activated. She was brought in to [facility] where she had head CT. Fortunately, this [...] Econazole nitrate cream applied topically. NAM CALVO MD/[id number]/ [id number] REV/BL [id number] - 07/11/2008 - [facility] TER PUMP OILER documented in this encounter Plan of Treatment Not on file documented as of this encounter Procedures Procedure Name Priority Date/Time Associated Diagnosis Comments CARDIAC ENZYMES Routine 05/12/2008 4:45 AM BOOSTER PUMP OILER CBC WITH DIFFERENTIAL Routine 05/12/2008 4:45 AM BOOSTER PUMP OILER TSH Routine 05/12/2008 4:45 AM BOOSTER PUMP OILER COMPREHENSIVE METABOLIC PANEL Routine 05/12/2008 4:45 AM BOOSTER PUMP OILER CARDIAC ENZYMES Routine 05/11/2008 10:13 PM BOOSTER PUMP OILER D-DIMER Routine 05/11/2008 10:13 PM BOOSTER PUMP OILER CARDIAC ENZYMES Routine 05/11/2008 3:50 PM BOOSTER PUMP OILER XR CHEST PA OR AP 1 VW Routine 8 1:07 PM BOOSTER PUMP OILER MRSA CULTURE Routine 05/11/2008 10:37 AM BOOSTER PUMP OILER URINALYSIS W/REFLEX MICROSCOPIC Routine 05/11/2008 5:41 AM BOOSTER PUMP OILER documented in this encounter Results * (ABNORMAL) CBC WITH DIFFERENTIAL (05/12/2008 4:45 AM BOOSTER PUMP OILER) HEMATOCRIT 36.0 36.0 - 46.0 % [facility] EOSINOPHILS 5.1 0.0 - 7.0 % [facility] PLATELETS 207 140 - 440 K/ul [facility] EOSINOPHIL ABSOLUTE 0.4 0.0 - 0.7 K/ul [facility] RBC 3.92(L) 4.20 - 5.40 Mil/ul [facility] LYMPHOCYTES 35.9 24.0 - 44.0 % [facility] MCHC 33.3 30.0 - 35.0 g/dL [facility] LYMPHOCYTE ABSOLUTE 2.6 1.2 - 4.0 K/ul [facility] MCV 91.8 84.0 - 103.0 Fl [facility] MPV 10.4 8.9 - 12.8 Fl [facility] BASOPHILS ABSOLUTE 0.1 0.0 - 0.2 K/ul [facility] BASOPHILS 1.1(H) 0.0 - 1.0 % [facility] HEMOGLOBIN 12.0 12.0 - 16.0 g/dL [facility] RDW 14.4 11.0 - 14.5 % [facility] MONOCYTE ABSOLUTE 0.5 0.1 - 0.6 K/ul [facility] MONOCYTES 7.4 2.0 - 10.0 % [facility] WBC 7.2 4.5 - 11.0 K/ul [facility] MCH 30.6 27.0 - 34.0 pg [facility] NEUTROPHIL ABSOLUTE 3.6 2.0 - 8.0 K/ul [facility] NEUTROPHILS 50.5 42.2 - 75.2 % [facility] Blood specimen (specimen) 05/12/2008 4:45 AM BOOSTER PUMP OILER 05/12/2008 4:45 AM BOOSTER PUMP OILER Murphy Espitia MD HEMATOLOGY ORDERABLES Final Res ult Performing Organization Address [facility] de Phone Number INTERFACE SYSTEM Refer to clinic/hospital department [facility] CLIA# [id number] [address] [place] [address] * TSH (05/12/2008 4:45 AM BOOSTER PUMP OILER) TSH 2.120 0.350 - 5.500 uIU/ml [facility] Blood specimen (specimen) 05/12/2008 4:45 AM BOOSTER PUMP OILER 05/12/2008 4:45 AM BOOSTER PUMP OILER Murphy Espitia MD CHEMISTRY ORDERABLES Final Resu lt Performing Organization Address [facility] de Phone Number INTERFACE SYSTEM Refer to clinic/hospital department [facility] CLIA# [id number] [address] [place] [address] * (ABNORMAL) COMPREHENSIVE METABOLIC PANEL (05/12/2008 4:45 AM BOOSTER PUMP OILER) CALCIUM 8.5 8.4 - 10.5 mg/dL [facility] CREATININE 0.8 0.7 - 1.2 mg/dL [facility] ALT 18 4 - 36 IU/L [facility] GLUCOSE 115(H) 70 - 110 mg/dL [facility] CHLORIDE 109 95 - 110 mEq/L [facility] OSMOLALITY, CALCULATED 282 275 - 295 mOsm/Kg [facility] ALKALINE PHOSPHATASE 110(H) 25 - 100 U/L [facility] GLOBULIN (CALC) 2.7 2.4 - 3.9 g/dL [facility] SODIUM 137 136 - 145 mEq/L [facility] BILIRUBIN TOTAL 0.1(L) 0.3 - 1.2 mg/dL [facility] TOTAL PROTEIN 6.2(L) 6.3 - 8.2 g/dL [facility] BUN 9 7 - 17 mg/dL [facility] AST 22 8 - 33 U/L [facility] CO2 24 22 - 32 mmol/l [facility] ALBUMIN/GLOBULIN RATIO 1.3 1.0 - 2.3 [facility] ALBUMIN 3.5 3.5 - 5.0 g/dL [facility] POTASSIUM 4.2 3.5 - 5.0 mEq/L [facility] ANION GAP 8(L) 9 - 20 mEq/L [facility] Blood specimen (specimen) 05/12/2008 4:45 AM BOOSTER PUMP OILER 05/12/2008 4:45 AM BOOSTER PUMP OILER Murphy Espitia MD CHEMISTRY ORDERABLES Final Resu lt Performing Organization Address City/[facility] de Phone Number INTERFACE SYSTEM Refer to clinic/hospital department [facility] CLIA# [id number] [address] [place] [address] * CARDIAC ENZYMES (05/12/2008 4:45 AM BOOSTER PUMP OILER) TROPONIN I <0.1 0.0 - 1.3 ng/mL [facility] CKMB 0.3 0.0 - 5.0 ng/mL [facility] Blood specimen (specimen) 05/12/2008 4:45 AM BOOSTER PUMP OILER 05/12/2008 4:45 AM BOOSTER PUMP OILER us Murphy Espitia MD CHEMISTRY ORDERABLES Final Resu lt Performing Organization Address [facility] de Phone Number INTERFACE SYSTEM Refer to clinic/hospital department [facility] CLIA# [id number] [address] [place] [address] * CARDIAC ENZYMES (05/11/2008 10:13 PM BOOSTER PUMP OILER) TROPONIN I <0.1 0.0 - 1.3 ng/mL [facility] CKMB 0.2 0.0 - 5.0 ng/mL [facility] Blood specimen (specimen) 05/11/2008 10:13 PM BOOSTER PUMP OILER 05/11/2008 10:13 PM BOOSTER PUMP OILER Murphy Espitia MD CHEMISTRY ORDERABLES Final Resu lt Performing Organization Address [facility] Phone Number INTERFACE SYSTEM Refer to clinic/hospital department [facility] CLIA# [id number] [address] [place] [address] * D-DIMER (05/11/2008 10:13 PM BOOSTER PUMP OILER) Pathologist [facility] D-DIMER QUANT 0.4 0.0 - 0.5 mcg/mL [facility] Comment: Testing performed using the STA [...] range. Blood specimen (specimen) 05/11/2008 10:13 PM BOOSTER PUMP OILER 05/11/2008 10:13 PM BOOSTER PUMP OILER Murphy Espitia MD HEMATOLOGY ORDERABLES Final Res ult Performing Organization Address [facility] Phone Number INTERFACE SYSTEM Refer to clinic/hospital department [facility] CLIA# [id number] [address] [place] [address] * CARDIAC ENZYMES (05/11/2008 3:50 PM BOOSTER PUMP OILER) Pathologist [facility] TROPONIN I <0.1 0.0 - 1.3 ng/mL [facility] CKMB 0.2 0.0 - 5.0 ng/mL [facility] Blood specimen (specimen) 05/11/2008 3:50 PM BOOSTER PUMP OILER 05/11/2008 4:01 PM BOOSTER PUMP OILER us Murphy Espitia MD CHEMISTRY ORDERABLES Final Resu lt Performing Organization Address [facility] de Phone Number INTERFACE SYSTEM Refer to clinic/hospital department [facility] CLIA# [id number] [address] [place] [address] * XR CHEST PA OR AP (05/11/2008 1:07 PM BOOSTER PUMP OILER) Anatomical Region Laterality Modality Chest Other 05/11/2008 1:07 PM BOOSTER PUMP OILER Narrative 05/11/2008 4:41 PM BOOSTER PUMP OILER Exam: Chest - Portable Date/Time of Exam: May 11, 2008 1:07:45 PM History: Chest pain. Findings: Compared with 08/05/2007 and accounting for change in technique and AP portable factors, there has been no significant interval change and there is no evidence of acute disease. - Dictated By: Wilmer Ho M.D. Electronically [...] Ho M.D. Date Signed: 05/11/08 us Nam Calvo MD DIAGNOSTIC IMAGING ORDERABLES Final Result * MRSA CULTURE (05/11/2008 10:37 AM BOOSTER PUMP OILER) FINAL REPORT Culture screen for MRSA negative INTERFACE SYSTEM ANTERIOR NARES SWAB / Unknown 05/11/2008 10:37 AM BOOSTER PUMP OILER 05/11/2008 10:37 AM BOOSTER PUMP OILER us Murphy Espitia MD MICROBIOLOGY - GENERAL ORDERABL ES Final Result INTERFACE SYSTEM Refer to clinic/hospital department * URINALYSIS (05/11/2008 5:41 AM BOOSTER PUMP OILER) NITRITE UA NEGATIVE NEGATIVE [facility] UROBILINOGEN UA 0.2 0.2 [facility] CLARITY UA SL CLOUDY Clear [facility] SPECIFIC GRAVITY UA 1.015 <=1.005 [facility] GLUCOSE UA NEGATIVE NEGATIVE [facility] PH UA 8.0 5.0 - 9.0 [facility] BILIRUBIN UA NEGATIVE NEGATIVE [facility] LEUKOCYTE ESTERASE UA NEGATIVE NEGATIVE [facility] KETONES UA NEGATIVE NEGATIVE [facility] MICRO EXAM No No [facility] COLOR UA Yellow Straw [facility] PROTEIN UA NEGATIVE NEGATIVE [facility] BLOOD UA NEGATIVE NEGATIVE [facility] Urine specimen (specimen) 05/11/2008 5:41 AM BOOSTER PUMP OILER 05/11/2008 5:41 AM BOOSTER PUMP OILER us Murphy Espitia MD URINE ORDERABLES Final Result Performing Organization Address City/State/[facility] [place] Phone Number INTERFACE SYSTEM Refer to clinic/hospital department [facility] CLIA# [id number] [address] [place] [address] documented in this encounter Visit Diagnoses Diagnosis Poisoning by unspecified drug or medicinal substance(977.9) Poisoning by unspecified drug or medicinal substance documented in this encounter Additional Health Concerns Infection Onset Date Last Indicated Resolved Time 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
--- OUTSIDE RECORDS SUMMARY | 2025-04-20 21:15 | XMS_ITS | Encounter Summary ---
Author Organization [facility] Address [address] [place] [address] Care Team Providers Care Watershed Engineer Name Role Phone Sally Dong MD Primary Care Provider [phone] Encounter Details Date Type Department Care Team (Late st Contact Info) Description 04/10/2025 Orders Only [facility] Admitting [address] [place] [address] Dara Tavera, EVENTS ASSISTANT [address] [place] [phone] Low back pain with sciatica, sciatica laterality unspecified, unspecified back pain laterality, unspecified chronicity (Primary Dx) Social History Tobacco Use Types [...] asked 05/05/2019 How often do you attend religious or shinto serv ices? Not asked 05/05/2019 Do you belong to any clubs o r organizations such as religious groups, unions, fraternal or athletic groups, or [...] you can t pay for food? No 04/07/2025 Transportation Needs Answer Date Record ed Have you gone without health care because you didn t have a way to get there? Or worry about transportation for future doctor visits, cone picker medication, etc.? No 2024 Housing Stability Answer Date Recorded Do you worry you won t have a steady place to sleep or struggle to pay rent or mortgage? No 04/07/2025 Utility Needs Answer Date Recorded Do you have difficulty payin g for utility costs (electric, water or gas bills)? No 04/07/2025 Medication Needs Answer Date Recorded Have you skipped taking medi cation due to cost or worry you can t afford new medications? No 04/07/2025 Feeling Safe Answer Date Recorded Are you in a relationship wi th someone who hurts you emotionally and/or physically? No 04/07/2025 Food Insecurity Answer Date Recorded Social/Environmental Concerns No concerns Transportation Needs Answer Date Record ed Social/Environmental Concerns No concerns Housing Stability Answer Date Recorded Social/Environmental Concerns No concerns Utility Needs Answer Date Recorded Social/Environmental Concerns No concerns Comments No Sex and Gender Information Value Date Recorded Sex Assigned at Female 03/25/2024 4:14 PM CDT Legal Sex Female 2:06 AM MANAGER PATIENT Gender Identity Female 03/25/2024 4:14 PM CDT Sexual Orientation Not on file documented as of this encounter Plan of Treatment Not on file documented as of this encounter Results * XR LUMBAR SPINE 2 OR 3 VW (04/10/2025 1:13 PM CDT) Anatomical Region Laterality Modality Spine Computed Radiogr aphy 04/10/2025 1:13 PM CDT Impressions 04/11/2025 5:11 AM CDT IMPRESSION: Please see below. Exam: XR LUMBAR SPINE 2 OR 3 VW Date/Time of Exam: 04/10/2025 1:13 PM Reason For Exam: See Diagnosis. Diagnosis: Low back pain with sciatica, sciatica laterality unspecified, unspecified back pain laterality, unspecified chronicity. Comparison: 11/21/2024. Findings: No significant progression in the multilevel disc, endplate and facet degenerative changes and mild scoliosis, apex at L2-3. No interval vertebral body height loss or significant subluxation. Abdominal and pelvic postoperative changes. IMPRESSION: 1. No significant progression in the advanced multilevel lumbar and to lesser degree thoracic spine degenerative changes and scoliosis. Narrative Procedure Note Sea Farias MD - 04/11/2025 IMPRESSION: Please see below. Exam: XR LUMBAR SPINE 2 OR 3 VW Date/Time of Exam: 04/10/2025 1:13 PM Reason For Exam: See Diagnosis. Diagnosis: Low back pain with sciatica, sciatica laterality unspecified, unspecified back pain laterality, unspecified chronicity. Comparison: 11/21/2024. Findings: No significant progression in the multilevel disc, endplate and facet degenerative changes and mild scoliosis, apex at L2-3. No interval vertebral body height loss or significant subluxation. Abdominal and pelvic postoperative changes. IMPRESSION: 1. No significant progression in the advanced multilevel lumbar and to lesser degree thoracic spine degenerative changes and scoliosis. Dara FLORESP DIAGNOSTIC IMAGING ORDERABL ES Final Result documented in this encounter Visit Diagnoses Diagnosis Low back pain with sciatica, sciatica laterality unspecified, unspecified back pain laterality, unspecified chronicity- Primary Low back pain with sciatica, sciatica laterality unspecified, unspecified back pain laterality, unspecified chronicity documented in this encounter Additional Health Concerns Assessment Noted Time PHQ-9 Depression Total Score: 3 10/01/19 23 4:46 PM CDT documented as of this encounter Care Teams Watershed Engineer Relationship Specialty Start Date End Date Sally Dong MD [address] [phone] PCP - General Family Practice 04/07/22 documented as of this encounter
--- OUTSIDE RECORDS SUMMARY | 2025-04-20 21:15 | XMS_ITS | Encounter Summary ---
Author Organization [facility] Address [address] [place] [address] Care Team Providers Care Cloud Engineer Name Role Phone Dara Tavera Primary Care Provider [phone] Encounter Details Date Type Department Care Team (Late st Contact Info) Description 05/12/2007 Emergency [facility] Emergency Department [address] [place] [address] Isaac Kovacs PA [address] [place], [place] [id number] Neck Sprain and Strain (Primary Dx) Social History Tobacco Use Types Packs/Day Years Used Date Smoking Tobacco: Never Assessed Comments Unknown Sex and Gender Information Value Date Recorded Sex Assigned at Not on file Legal Sex Female 5:22 AM PRESERVATIVE FILLER MACHINE OPERATOR Gender Identity Not on file Sexual Orientation Not on file documented as of this encounter Plan of Treatment Not on file documented as of this encounter Visit Diagnoses Diagnosis Sprain of neck- Primary documented in this encounter Additional Health Concerns Infection Onset Date Last Indicated Resolved Time 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
--- OUTSIDE RECORDS SUMMARY | 2025-04-20 21:15 | XMS_ITS | Encounter Summary ---
Author Organization [facility] Address [address] [place] [address] Care Team Providers Care Kinder Teacher Name Role Phone Dara Tavera AMANDEEP Primary Care Provider Encounter Details Date Type Department Care Team (Latest Contact Info) Description 12/16/2005 Outpatient Historical [facility] Family Medicine- [address] [place] [phone] Ryan Don NP NO ADDRESS ON FILE Abdominal Pain, Unspecified Site (Primary Dx); Other Specified Disease of White Blood Cells; Cellulitis and Abscess of Unspecified Site; Nausea with Vomiting Social History Tobacco Use Types Packs/Day Years Used Date Smoking Tobacco: Never Assessed Comments Unknown Sex and Gender Information Value Date Recorded Sex Assigned at Not on file Legal Sex Female 5:22 AM SILVER LAP MACHINE TENDER Gender Identity Not on file [...] 10/30/13 Resolved 11/04/2013 11/04/2013 8 10:33 AM SILVER LAP MACHINE TENDER R/O COVID-19 12/25/2019 12/25/2019 12/26/2019 2:46 PM CDT R/O COVID-19 05/09/2020 05/09/2020 05/09/2020 12:1 7 PM SILVER LAP MACHINE TENDER documented as of this encounter Care Teams Kinder Teacher Relationship Specialty Start Date End Date Dara Tavera FNP [address] [place] [phone] PCP - General NURSE PRACTITIONER 10/13/18 documented as of this encounter
--- OUTSIDE RECORDS SUMMARY | 2025-04-20 21:15 | XMS_ITS | Encounter Summary ---
Author Organization [facility] Address [address] [place] [address] Care Team Providers Care Security Services Specialist Name Role Phone Dara Tavera Primary Care Provider [phone] Encounter Details Date Type Department Care Team (Latest Contact Info) Description 12/28/2005 Outpatient Historical [facility] Family Medicine [place] [address] [facility] [address] [place] [address] Faiza Petersen MD NO ADDRESS ON FILE Open Wnd Anterior Abdomen (Primary Dx); Other Postsurgical Status Social History Tobacco Use Types Packs/Day Years Used Date Smoking Tobacco: Never Assessed Comments Unknown Sex and Gender Information Value Date Recorded Sex Assigned at Not on file Legal Sex Female 5:22 AM POWDER BLENDER AND POURER Gender Identity Not on file Sexual Orientation [...] 10/30/13 Resolved 11/04/2013 11/04/2013 8 10:33 AM POWDER BLENDER AND POURER R/O COVID-19 12/25/2019 12/25/2019 12/26/2019 2:46 PM CDT R/O COVID-19 05/09/2020 05/09/2020 05/09/2020 12:1 7 PM POWDER BLENDER AND POURER documented as of this encounter Care Teams Security Services Specialist Relationship Specialty Start Date End Date Dara Tavera FNP [address] [place] [phone] PCP - General NURSE PRACTITIONER 10/13/18 documented as of this encounter
--- OUTSIDE RECORDS SUMMARY | 2025-04-20 21:15 | XMS_ITS | Encounter Summary ---
Author Organization [facility] Address [address] [place] [address] Care Team Providers Care Founder Name Role Phone Dara Tavera AMANDEEP Primary Care Provider Encounter Details Date Type Department Care Team (Late st Contact Info) Description 04/30/2007 Outpatient [facility] [address] [place] [address] AMBULANCE, [facility] Social History Tobacco Use Types Packs/Day Years Used Date Smoking Tobacco: Never Assessed Comments Unknown Sex and Gender Information Value Date Recorded Sex Assigned at Not on file Legal Sex Female 5:22 AM CHALK CUTTER Gender Identity Not on file Sexual Orientation Not on file documented as of this encounter Plan of Treatment Not on file documented as of this encounter Procedures Procedure Name Priority Date/Time Associated Diagnosis Comments CT ABDOMEN PELVIS W CONTRAST Routine 04/30/2007 8:07 PM CHALK CUTTER documented in this encounter Results * CT ABDOMEN PELVIS W CONTRAST (04/30/2007 8:07 PM CHALK CUTTER) Anatomical Region Laterality Modality Abdomen Other 04/30/2007 8:07 PM CHALK CUTTER Narrative 04/30/2007 8:[address] Scan Abdomen and Pelvis with contrast [...] 10/30/13 Resolved 11/04/2013 11/04/2013 8 10:33 AM CHALK CUTTER R/O COVID-19 12/25/2019 12/25/2019 12/26/2019 2:46 PM CDT R/O COVID-19 05/09/2020 05/09/2020 05/09/2020 12:1 7 PM CHALK CUTTER documented as of this encounter Care Teams Founder Relationship Specialty Start Date End Date Dara Tavera FNP [address] [place] [address] PCP - General NURSE PRACTITIONER 10/13/18 documented as of this encounter
--- OUTSIDE RECORDS SUMMARY | 2025-04-20 21:15 | XMS_ITS | Encounter Summary ---
Author Organization [facility] Address [address] [place] [address] Care Team Providers Care Copy Coordinator Name Role Phone Dara Tavera AMANDEEP Primary Care Provider Encounter Details Date Type Department Care Team (Late st Contact Info) Description 04/30/2007 Emergency [facility] Emergency Department [address] [place] [address] Jillian Joyce MD [address] [place] [address] Other Acute Pain (Primary Dx) Social History Tobacco Use Types Packs/Day Years Used Date Smoking Tobacco: Never Assessed Comments Unknown Sex and Gender Information Value Date Recorded Sex Assigned at Not on file Legal Sex Female 5:22 AM SHEARER HELPER Gender Identity Not on file Sexual Orientation Not on file documented as of this encounter Plan of Treatment Not on file documented as of this encounter Procedures Procedure Name Priority Date/Time Associated Diagnosis Comments URINALYSIS W/REFLEX MICROSCOPIC Routine 04/30/2007 9:34 PM SHEARER HELPER PT AND APTT Routine 04/30/2007 7:35 PM SHEARER HELPER CBC WITH DIFFERENTIAL Routine 04/30/2007 7:35 PM SHEARER HELPER LIPASE Routine 04/30/2007 7:35 PM SHEARER HELPER COMPREHENSIVE METABOLIC PANEL Routine 04/30/2007 7:35 PM SHEARER HELPER documented in this encounter Results * URINALYSIS (04/30/2007 9:34 PM SHEARER HELPER) COLOR UA Straw Straw INTERFACE SYSTEM CLARITY [...] No No INTERFACE SYSTEM 04/30/2007 9:34 PM SHEARER HELPER us Jillian Joyce MD URINE ORDERABLES Edited INTERFACE SYSTEM Refer to clinic/hospital department * PT AND APTT (04/30/2007 7:35 PM SHEARER HELPER) PROTIME 15.1 13.0 - 15.7 Secs INTERFACE SYSTEM Comment: As of 06 note change in normal range. INR 1.1 INTERFACE SYSTEM Comment: Expected Values for INR: DVT/PE Goal INR 2.5; range 2.0 - 3.0 Valve Replacement Tissue Goal INR 2.5; range 2.0 - 3.0 Mechanical Goal INR 3.0; range 2.5 - 3.5 POST-MO Goal INR 2.5; range 2.0 - 3.0 [...] in APTT Normal Range. 04/30/2007 7:35 PM SHEARER HELPER Jillian Joyce MD HEMATOLOGY ORDERABLES Edit ed Performing Organization Address City/[facility]/ZIP Co de Phone Number INTERFACE SYSTEM Refer to clinic/hospital department * (ABNORMAL) CBC WITH DIFFERENTIAL (04/30/2007 7:35 PM SHEARER HELPER) WBC 18.3(H) 4.5 - 11.0 K/ul INTERFACE [...] 0.2 K/ul INTERFACE SYSTEM 04/30/2007 7:35 PM SHEARER HELPER Jillian Joyce MD HEMATOLOGY ORDERABLES Edit ed INTERFACE SYSTEM Refer to clinic/hospital department * (ABNORMAL) COMPREHENSIVE METABOLIC PANEL (04/30/2007 7:35 PM SHEARER HELPER) GLUCOSE 103 70 - 110 mg/dL INTERFACE [...] 295 mOsm/Kg INTERFACE SYSTEM 04/30/2007 7:35 PM SHEARER HELPER us Jillian Joyce MD CHEMISTRY ORDERABLES Edite d Performing Organization Address [facility] Phone Number INTERFACE SYSTEM Refer to clinic/hospital department * LIPASE (04/30/2007 7:35 PM SHEARER HELPER) LIPASE 23 6 - 51 U/L INTERFACE SYSTEM 04/30/2007 7:35 PM SHEARER HELPER Jillian Joyce MD CHEMISTRY ORDERABLES Edite d Performing Organization Address [facility] [place] Phone Number INTERFACE SYSTEM Refer to clinic/hospital department documented in this encounter Visit Diagnoses Diagnosis Other acute pain- Primary documented in this encounter Additional Health Concerns Infection Onset Date Last Indicated Resolved Time 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
--- OUTSIDE RECORDS SUMMARY | 2025-04-20 21:15 | XMS_ITS | Encounter Summary ---
Author Organization [facility] Address [address] [place] [address] Care Team Providers Care Cut Off Saw Tender Metal Name Role Phone Dara Tavera Primary Care Provider Encounter Details Date Type Department Care Team (Latest Contact Info) Description 01/05/2006 Outpatient Historical [facility] Family Medicine [place] [address] [facility] [address] [place] [address] Faiza Petersen MD NO ADDRESS ON FILE Open Wnd Anterior Abdomen (Primary Dx); Abdominal Pain, Unspecified Site Social History Tobacco Use Types Packs/Day Years Used Date Smoking Tobacco: Never Assessed Comments Unknown Sex and Gender Information Value Date Recorded Sex Assigned at Not on file Legal Sex Female 5:22 AM MOTOR GRADER ROUGH GRADE Gender Identity Not on file Sexual Orientation [...] Resolved 11/04/2013 11/04/2013 8 10:33 AM MOTOR GRADER ROUGH GRADE R/O COVID-19 12/25/2019 12/25/2019 12/26/2019 2:46 PM CDT R/O COVID-19 05/09/2020 05/09/2020 05/09/2020 12:1 7 PM MOTOR GRADER ROUGH GRADE documented as of this encounter Care Teams Cut Off Saw Tender Metal Relationship Specialty Start Date End Date Dara Tavera FNP [address] [place] [address] PCP - General NURSE PRACTITIONER 10/13/18 documented as of this encounter
--- OUTSIDE RECORDS SUMMARY | 2025-04-20 21:15 | XMS_ITS | Encounter Summary ---
Author Organization [facility] Address [address] [place] [address] Care Team Providers Care Fabricator Foam Rubber Name Role Phone Dara Tavera Primary Care Provider Encounter Details Date Type Department Care Team (Latest Contact Info) Description 01/05/2006 Outpatient Historical [facility] [address] [place] [address] AMBULANCE, [facility] Abdominal Pain, Unspecified Site (Primary Dx) Social History Tobacco Use Types Packs/Day Years Used Date Smoking Tobacco: Never Assessed Comments Unknown Sex and Gender Information Value Date Recorded Sex Assigned at Not on file Legal Sex Female 5:22 AM GROUNDS KEEPER Gender Identity Not on file Sexual Orientation Not on file documented as of this encounter Plan of Treatment Not on file documented as of this encounter Visit Diagnoses Diagnosis Abdominal pain, unspecified site- Primary documented in this encounter Additional Health Concerns Infection Onset Date Last Indicated Resolved Time 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
--- OUTSIDE RECORDS SUMMARY | 2025-04-20 21:15 | XMS_ITS | Encounter Summary ---
Author Organization [facility] Address [address] [place] [address] Care Team Providers Care Field Evidence Technician Name Role Phone Dara Tavera AMANDEEP Primary Care Provider Encounter Details Date Type Department Care Team (Latest Contact Info) Description 04/24/2008 Outpatient Historical [facility] [address] [place] [address] AMBULANCE, [facility] Unspecified Acute Reaction to Stress; Unspecified Epilepsy [...] on file Legal Sex Female 5:22 AM EMAIL MARKETING SPECIALIST Gender Identity Not on file Sexual [...] 10/30/13 Resolved 11/04/2013 11/04/2013 8 10:33 AM EMAIL MARKETING SPECIALIST R/O COVID-19 12/25/2019 12/25/2019 12/26/2019 2:46 PM CDT R/O COVID-05/09/2020 05/09/2020 05/09/2020 12:1 7 PM EMAIL MARKETING SPECIALIST documented as of this encounter Care Teams Field Evidence Technician Relationship Specialty Start Date End Date Dara Tavera FNP [address] [place] [phone] PCP - General NURSE PRACTITIONER 10/13/18 documented as of this encounter
--- OUTSIDE RECORDS SUMMARY | 2025-04-20 21:15 | XMS_ITS | Encounter Summary ---
Author Organization [facility] Address [address] [place] [address] Care Team Providers Care Hadoop Engineer Name Role Phone Dara Tavera AMANDEEP Primary Care Provider Encounter Details Date Type Department Care Team (Late st Contact Info) Description 05/14/2007 Emergency [facility] Emergency Department [address] [place] [address] Kurt Nassar MD [address] [place] [address] Abdominal Pain, Unspecified Site (Primary Dx) Social History Tobacco Use Types Packs/Day Years Used Date Smoking Tobacco: Never Assessed Comments Unknown Sex and Gender Information Value Date Recorded Sex Assigned at Not on file Legal Sex Female 5:22 AM FIELD REIMBURSEMENT MANAGER Gender Identity Not on file Sexual Orientation Not on file documented as of this encounter Plan of Treatment Not on file documented as of this encounter Procedures Procedure Name Priority Date/Time Associated Diagnosis Comments URINALYSIS W/REFLEX MICROSCOPIC Routine 05/14/2007 12:20 PM FIELD REIMBURSEMENT MANAGER CBC WITH DIFFERENTIAL Routine 05/14/2007 11:37 AM FIELD REIMBURSEMENT MANAGER LIPASE Routine 05/14/2007 11:37 AM FIELD REIMBURSEMENT MANAGER AMYLASE Routine 05/14/2007 11:37 AM FIELD REIMBURSEMENT MANAGER COMPREHENSIVE METABOLIC PANEL Routine 05/14/2007 11:37 AM FIELD REIMBURSEMENT MANAGER documented in this encounter Results * URINALYSIS (05/14/2007 12:20 PM FIELD REIMBURSEMENT MANAGER) COLOR UA Yellow Straw INTERFACE SYSTEM CLARITY [...] No INTERFACE SYSTEM 05/14/2007 12:2 0 PM FIELD REIMBURSEMENT MANAGER Kurt Nassar MD URINE ORDERABLES Edited Performing Organization Address City/[facility] [place] Phone Number INTERFACE SYSTEM Refer to clinic/hospital department * AMYLASE (05/14/2007 11:37 AM FIELD REIMBURSEMENT MANAGER) AMYLASE 46 20 - 104 U/L INTERFACE SYSTEM 05/14/2007 11:3 7 AM FIELD REIMBURSEMENT MANAGER Result [facility] Kurt Nassar MD CHEMISTRY ORDERABLES Edite d Performing Organization Address City/[facility] Co de Phone Number INTERFACE SYSTEM Refer to clinic/hospital department * LIPASE (05/14/2007 11:37 AM FIELD REIMBURSEMENT MANAGER) LIPASE 30 6 - 51 U/L INTERFACE SYSTEM 05/14/2007 11:3 7 AM FIELD REIMBURSEMENT MANAGER Kurt Nassar MD CHEMISTRY ORDERABLES Edite d Performing Organization Address City/[facility] [place] Phone Number INTERFACE SYSTEM Refer to clinic/hospital department * (ABNORMAL) COMPREHENSIVE METABOLIC PANEL (05/14/2007 11:37 AM FIELD REIMBURSEMENT MANAGER) GLUCOSE 104 70 - 110 mg/dL INTERFACE [...] mOsm/Kg INTERFACE SYSTEM 05/14/2007 11:3 7 AM FIELD REIMBURSEMENT MANAGER us Kurt Nassar MD CHEMISTRY ORDERABLES Edite d INTERFACE SYSTEM Refer to clinic/hospital department * (ABNORMAL) CBC WITH DIFFERENTIAL (05/14/2007 11:37 AM FIELD REIMBURSEMENT MANAGER) WBC 12.6(H) 4.5 - 11.0 K/ul INTERFACE [...] K/ul INTERFACE SYSTEM 05/14/2007 11:3 7 AM FIELD REIMBURSEMENT MANAGER us Kurt Nassar MD HEMATOLOGY ORDERABLES Edit ed INTERFACE SYSTEM Refer to clinic/hospital department documented in this encounter Visit Diagnoses Diagnosis Abdominal pain, unspecified site- Primary documented in this encounter Additional Health Concerns Infection Onset Date Last Indicated Resolved Time 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
--- OUTSIDE RECORDS SUMMARY | 2025-04-20 21:15 | XMS_ITS | Encounter Summary ---
Author Organization [facility] Address [address] [place] [address] Care Team Providers Care Professor Of Environmental Studies Name Role Phone Dara Tavera Primary Care Provider Encounter Details Date Type Department Care Team (Late st Contact Info) Description 04/03/2007 Outpatient [facility] [address] [place] [address] AMBULANCE, [facility] Other Chest Pain (Primary Dx) Social History Tobacco Use Types Packs/Day Years Used Date Smoking Tobacco: Never Assessed Comments Unknown Sex and Gender Information Value Date Recorded Sex Assigned at Not on file Legal Sex Female 5:22 AM METAL MOLDER Gender Identity Not on file Sexual Orientation Not on file documented as of this encounter Plan of Treatment Not on file documented as of this encounter Visit Diagnoses Diagnosis Other chest pain- Primary documented in this encounter Additional Health Concerns Infection Onset Date Last Indicated Resolved Time VRE Comment:Urine 10/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
--- OUTSIDE RECORDS SUMMARY | 2025-04-20 21:15 | XMS_ITS | Encounter Summary ---
Author Organization [facility] Address [address] [place] [address] Care Team Providers Care Lobby Porter Name Role Phone Dara Tavera AMANDEEP Primary Care Provider [phone] Encounter Details Date Type Department Care Team (Latest Contact Info) Description 04/22/2008 Outpatient Historical [facility] [address] [place] [address] AMBULANCE, [facility] Aphasia; Unspecified Tachycardia; Chronic Airway [...] on file Legal Sex Female 5:22 AM USER SUPPORT ANALYST SUPERVISOR Gender Identity Not on file Sexual [...] 10/30/13 Resolved 11/04/2013 11/04/2013 8 10:33 AM USER SUPPORT ANALYST SUPERVISOR R/O COVID-19 12/25/2019 12/25/2019 12/26/2019 2:46 PM CDT R/O COVID-19 05/09/2020 05/09/2020 05/09/2020 12:1 7 PM USER SUPPORT ANALYST SUPERVISOR documented as of this encounter Care Teams Lobby Porter Relationship Specialty Start Date End Date Dara Tavera FNP [address] [place] [phone] PCP - General NURSE PRACTITIONER 10/13/18 documented as of this encounter
--- OUTSIDE RECORDS SUMMARY | 2025-04-20 21:15 | XMS_ITS | Encounter Summary ---
Author Organization [facility] Address [address] [place] [address] Care Team Providers Care Floral Designer Salesperson Name Role Phone Dara Tavera CERAMIC PLATER Primary Care Provider Encounter Details Date Type Department Care Team (Late st Contact Info) Description 06/17/2007 Outpatient Historical [facility] Sammi Justice MD [address] [place] [address] Murphy Espitia MD NO ADDRESS [...] on file Legal Sex Female 5:22 AM BRAKE MECHANIC Gender Identity Not on file Sexual Orientation Not on file documented as of this encounter Plan of Treatment Not on file documented as of this encounter Procedures Procedure Name Priority Date/Time Associated Diagnosis Comments CBC WITH DIFFERENTIAL Routine 06/20/2007 4:40 AM BRAKE MECHANIC BASIC METABOLIC PANEL Routine 06/20/2007 4:40 AM BRAKE MECHANIC URINALYSIS W/REFLEX MICROSCOPIC Routine 06/19/2007 5:59 AM BRAKE MECHANIC CARDIAC ENZYMES Routine 06/18/2007 7:40 AM BRAKE MECHANIC CARDIAC ENZYMES Routine 06/18/2007 1:45 AM BRAKE MECHANIC CBC WITH DIFFERENTIAL Routine 06/18/2007 1:45 AM BRAKE MECHANIC TSH Routine 06/18/2007 1:45 AM BRAKE MECHANIC COMPREHENSIVE METABOLIC PANEL Routine 06/18/2007 1:45 AM BRAKE MECHANIC PT AND APTT Routine 06/17/2007 7:50 PM BRAKE MECHANIC CARDIAC ENZYMES Routine 06/17/2007 7:50 PM BRAKE MECHANIC CBC WITH DIFFERENTIAL Routine 06/17/2007 7:50 PM BRAKE MECHANIC BRAIN NATRIURETIC PEPTIDE, BNP OR PROBNP Routine 06/17/2007 7:50 PM BRAKE MECHANIC BASIC METABOLIC PANEL Routine 06/17/2007 7:50 PM BRAKE MECHANIC POC BLOOD GAS, LYTES AND H+H Routine 06/17/2007 6:48 PM BRAKE MECHANIC documented in this encounter Results * BASIC METABOLIC PANEL (06/20/2007 4:40 AM BRAKE MECHANIC) GLUCOSE 99 70 - 110 mg/dL INTERFACE [...] 295 mOsm/Kg INTERFACE SYSTEM 06/20/2007 4:40 AM BRAKE MECHANIC us Murphy Espitia MD CHEMISTRY ORDERABLES Edited INTERFACE SYSTEM Refer to clinic/hospital department * (ABNORMAL) CBC WITH DIFFERENTIAL (06/20/2007 4:40 AM BRAKE MECHANIC) WBC 10.6 4.5 - 11.0 K/ul INTERFACE [...] 0.2 K/ul INTERFACE SYSTEM 06/20/2007 4:40 AM BRAKE MECHANIC us Murphy Espitia MD HEMATOLOGY ORDERABLES Edited INTERFACE SYSTEM Refer to clinic/hospital department * URINALYSIS (06/19/2007 5:59 AM BRAKE MECHANIC) COLOR UA Yellow Straw INTERFACE SYSTEM [...] No No INTERFACE SYSTEM 06/19/2007 5:59 AM BRAKE MECHANIC Murphy Espitia MD URINE ORDERABLES Edited Performing Organization Address [facility] Phone Number INTERFACE SYSTEM Refer to clinic/hospital department * CARDIAC ENZYMES (06/18/2007 7:40 AM BRAKE MECHANIC) TROPONIN I <0.1 0.0 - 1.3 ng/mL INTERFACE SYSTEM CKMB 1.9 0.0 - 5.0 ng/mL INTERFACE SYSTEM 06/18/2007 7:40 AM BRAKE MECHANIC Sammi Justice MD CHEMISTRY ORDERABLES Edited Performing Organization Address [facility] Phone Number INTERFACE SYSTEM Refer to clinic/hospital department * TSH (06/18/2007 1:45 AM BRAKE MECHANIC) TSH 0.530 0.350 - 5.500 uIU/ml INTERFACE SYSTEM 06/18/2007 1:45 AM BRAKE MECHANIC Murphy Espitia MD CHEMISTRY ORDERABLES Edited Performing Organization Address [facility] Phone Number INTERFACE SYSTEM Refer to clinic/hospital department * (ABNORMAL) COMPREHENSIVE METABOLIC PANEL (06/18/2007 1:45 AM BRAKE MECHANIC) GLUCOSE 227(H) 70 - 110 mg/dL INTERFACE [...] 295 mOsm/Kg INTERFACE SYSTEM 06/18/2007 1:45 AM BRAKE MECHANIC us Murphy Espitia MD CHEMISTRY ORDERABLES Edited INTERFACE SYSTEM Refer to clinic/hospital department * (ABNORMAL) CBC WITH DIFFERENTIAL (06/18/2007 1:45 AM BRAKE MECHANIC) WBC 22.9(H) 4.5 - 11.0 K/ul INTERFACE [...] 0.2 K/ul INTERFACE SYSTEM 06/18/2007 1:45 AM BRAKE MECHANIC Murphy Espitia MD HEMATOLOGY ORDERABLES Edited Performing Organization Address [facility] Phone Number INTERFACE SYSTEM Refer to clinic/hospital department * CARDIAC ENZYMES (06/18/2007 1:45 AM BRAKE MECHANIC) TROPONIN I <0.1 0.0 - 1.3 ng/mL INTERFACE SYSTEM CKMB 1.7 0.0 - 5.0 ng/mL INTERFACE SYSTEM 06/18/2007 1:45 AM BRAKE MECHANIC Sammi Justice MD CHEMISTRY ORDERABLES Edited Performing Organization Address [facility] Phone Number INTERFACE SYSTEM Refer to clinic/hospital department * (ABNORMAL) BRAIN NATRIURETIC PEPTIDE, BNP OR PROBNP (06/17/2007 7:50 PM BRAKE MECHANIC) BRAIN NATRIURETIC PEPTIDE 211(H) 0 - 125 pg/mL INTERFACE SYSTEM 06/17/2007 7:50 PM BRAKE MECHANIC Sammi Justice MD CHEMISTRY ORDERABLES Edited Performing Organization Address [facility] Phone Number INTERFACE SYSTEM Refer to clinic/hospital department * PT AND APTT (06/17/2007 7:50 PM BRAKE MECHANIC) PROTIME 14.4 12.8 - 15.8 Secs INTERFACE SYSTEM INR 1.0 INTERFACE SYSTEM PTT 34.9 21.6 - 35.6 Secs INTERFACE SYSTEM 06/17/2007 7:50 PM BRAKE MECHANIC us Sammi Justice MD HEMATOLOGY ORDERABLES Edite d Performing Organization Address [facility] Phone Number INTERFACE SYSTEM Refer to clinic/hospital department * CARDIAC ENZYMES (06/17/2007 7:50 PM BRAKE MECHANIC) TROPONIN I <0.1 0.0 - 1.3 ng/mL INTERFACE SYSTEM CKMB 2.7 0.0 - 5.0 ng/mL INTERFACE SYSTEM 06/17/2007 7:50 PM BRAKE MECHANIC Sammi Justice MD CHEMISTRY ORDERABLES Edited Performing Organization Address [facility] Phone Number INTERFACE SYSTEM Refer to clinic/hospital department * (ABNORMAL) BASIC METABOLIC PANEL (06/17/2007 7:50 PM BRAKE MECHANIC) GLUCOSE 143(H) 70 - 110 mg/dL INTERFACE [...] 295 mOsm/Kg INTERFACE SYSTEM 06/17/2007 7:50 PM BRAKE MECHANIC Sammi Justice MD CHEMISTRY ORDERABLES Edited Performing Organization Address [facility] Phone Number INTERFACE SYSTEM Refer to clinic/hospital department * (ABNORMAL) CBC WITH DIFFERENTIAL (06/17/2007 7:50 PM BRAKE MECHANIC) WBC 20.9(H) 4.5 - 11.0 K/ul INTERFACE [...] 0.2 K/ul INTERFACE SYSTEM 06/17/2007 7:50 PM BRAKE MECHANIC us Sammi Justice MD HEMATOLOGY ORDERABLES Edite d INTERFACE SYSTEM Refer to clinic/hospital department * (ABNORMAL) POC ISTAT EG 7+ (06/17/2007 6:48 PM BRAKE MECHANIC) SPECIMEN TYPE Arterial INTERF SHANTE SYSTEM Comment: Test Performed By [id number] Pulse OX: 96 Hemoglobin calculated from Hematocrit [...] 1.32 mmol/l INTERFACE SYSTEM 06/17/2007 6:48 PM BRAKE MECHANIC Murphy Espitia MD POINT OF CARE TESTING COM Edite d INTERFACE SYSTEM Refer to clinic/hospital department documented in this encounter Visit Diagnoses Diagnosis Unspecified asthma, with exacerbation Bipolar I disorder, most recent episode (or current) depressed, unspecified ([facility]) Bipolar I disorder, most recent episode (or current) depressed, unspecified Tobacco use disorder Obesity, unspecified Hypopotassemia Hypoxemia documented in this encounter Additional Health Concerns Infection Onset Date Last Indicated Resolved Time VRE Comment:Urine 10/30/13 Resolved 11/04/2013 11/04/2013 8 10:33 AM BRAKE MECHANIC R/O COVID-19 12/25/2019 12/25/2019 12/26/2019 2:46 PM CDT R/O COVID-19 05/09/2020 05/09/2020 05/09/2020 12:1 7 PM BRAKE MECHANIC documented as of this encounter Care Teams Floral Designer Salesperson Relationship Specialty Start Date End Date Dara Tavera FNP [address] [place] [phone] PCP - General NURSE PRACTITIONER 10/13/18 documented as of this encounter
--- OUTSIDE RECORDS SUMMARY | 2025-04-20 21:15 | XMS_ITS | Encounter Summary ---
Author Organization [facility] Address [address] [place] [address] Care Team Providers Care Curing Oven Tender Name Role Phone Dara Tavera AMANDEEP Primary Care Provider Encounter Details Date Type Department Care Team (Late st Contact Info) Description 04/18/2007 Inpatient Historical [facility] IN B[facility] Pawan Rosario MD [address] [place] [address] Bipolar Affective, Mixed, Sev w/ Psych (CMS/HCC) (Primary Dx) Social History Tobacco Use Types Packs/Day Years Used Date Smoking Tobacco: Never Assessed Comments Unknown Sex and Gender Information Value Date Recorded Sex Assigned at Not on file Legal Sex Female 5:22 AM CELL ROOM SUPERVISOR Gender Identity Not on file Sexual Orientation Not on file documented as of this encounter Plan of Treatment Not on file documented as of this encounter Procedures Procedure Name Priority Date/Time Associated Diagnosis Comments URINALYSIS W/REFLEX MICROSCOPIC Routine 04/22/2007 9:05 AM CELL ROOM SUPERVISOR LIPASE Routine 04/18/2007 10:54 AM CDT AMYLASE Routine 04/18/2007 10:54 AM CDT CBC WITH DIFFERENTIAL Routine 04/18/2007 10:48 AM CDT TSH Routine 04/18/2007 10:48 AM CDT ETHANOL LEVEL Routine 04/18/2007 10:48 AM CDT COMPREHENSIVE METABOLIC PANEL Routine 04/18/2007 10:48 AM CDT DRUG SCREEN, URINE Routine 04/18/2007 9: 47 AM CDT documented in this encounter Results * URINALYSIS (04/22/2007 9:05 AM CELL ROOM SUPERVISOR) COLOR UA Yellow Straw INTERFACE SYSTEM [...] No No INTERFACE SYSTEM 04/22/2007 9:05 AM CELL ROOM SUPERVISOR us Pawan Rosario MD URINE ORDERABLES Edited Performing Organization Address [facility] Phone Number INTERFACE SYSTEM Refer to clinic/hospital department * LIPASE (04/18/2007 10:54 AM CDT) LIPASE 36 6 - 51 U/L INTERFACE SYSTEM 04/18/2007 10:5 4 AM CDT Benedicto Rojo MD CHEMISTRY ORDERABLES Edited Performing Organization Address [facility] Phone Number INTERFACE SYSTEM Refer to clinic/hospital department * AMYLASE (04/18/2007 10:54 AM CDT) AMYLASE 46 20 - 104 U/L INTERFACE SYSTEM 04/18/2007 10:5 4 AM CDT Benedicto Rojo MD CHEMISTRY ORDERABLES Edited Performing Organization Address [facility] Phone Number INTERFACE SYSTEM Refer [...] Comment: As of 04 at 3:[address] [facility] has changed the methodology for TSH, and with this change the reference range has changed from 0.49-4.67 to 0.35-5.5 uIU/ml. 04/18/2007 10:4 8 AM CDT Benedicto oRjo MD CHEMISTRY ORDERABLES Edited Performing Organization Address [facility] Phone Number INTERFACE SYSTEM Refer [...] MD CHEMISTRY ORDERABLES Edited Performing Organization Address [facility] Phone Number INTERFACE SYSTEM Refer to clinic/hospital department * ETHANOL (04/18/2007 10:48 AM CDT) ETHANOL <10 <=10 mg/dL INTERFACE SYSTEM ETHANOL % <0.010 <=0.010 % INTERFACE SYSTEM Comment: Beginning August 01, 2006, the Blood Alcohol from [facility] will be reported in % as well as mg/dl. 04/18/2007 10:4 8 AM CDT Benedicto Rojo MD CHEMISTRY ORDERABLES Edited Performing Organization Address [facility] Phone Number INTERFACE SYSTEM Refer [...] MD URINE ORDERABLES Edited Performing Organization Address [facility] Phone Number INTERFACE SYSTEM Refer to clinic/hospital department documented in this encounter Visit Diagnoses Diagnosis Bipolar I disorder, most recent episode (or current) mixed, severe, specified as with psychotic behavior ([facility])- Primary Bipolar I disorder, most recent episode (or current) mixed, severe, specified as with psychotic behavior documented in this encounter Additional Health Concerns Infection Onset Date Last Indicated Resolved Time VRE Comment:Urine 10/30/13 Resolved 11/04/2013 11/04/2013 8 10:33 AM CELL ROOM SUPERVISOR R/O COVID-19 12/25/2019 12/25/2019 12/26/2019 2:46 PM CDT R/O COVID-19 05/09/2020 05/09/2020 05/09/2020 12:1 7 PM CELL ROOM SUPERVISOR documented as of this encounter Care Teams Curing Oven Tender Relationship Specialty Start Date End Date Dara Tavera FNP [address] [place] [phone] PCP - General NURSE PRACTITIONER 10/13/18 documented as of this encounter
--- OUTSIDE RECORDS SUMMARY | 2025-04-20 21:15 | XMS_ITS | Encounter Summary ---
Author Organization [facility] Address [address] [place] [address] Care Team Providers Care Business Services Specialist Sales Name Role Phone Dara Tavera Primary Care Provider [phone] Encounter Details Date Type Department Care Team (Latest Contact Info) Description 09/19/2005 Outpatient Historical [facility] [address] [place] [address] AMBULANCE, [facility] Hemorrhage Complicating a Procedure (Primary Dx) Social History Tobacco Use Types Packs/Day Years Used Date Smoking Tobacco: Never Assessed Comments Unknown Sex and Gender Information Value Date Recorded Sex Assigned at Not on file Legal Sex Female 5:22 AM INSURANCE VERIFY REP Gender Identity Not on file Sexual Orientation Not on file documented as of this encounter Plan of Treatment Not on file documented as of this encounter Visit Diagnoses Diagnosis Hemorrhage complicating a procedure- Primary documented in this encounter Additional Health Concerns Infection Onset Date Last Indicated Resolved Time VRE Comment:Urine 10/30/13 Resolved 11/04/2013 11/04/2013 8 10:33 AM INSURANCE VERIFY REP R/O COVID-19 12/25/2019 12/25/2019 12/26/2019 2:46 PM CDT R/O COVID-19 05/09/2020 05/09/2020 05/09/2020 12:1 7 PM INSURANCE VERIFY REP documented as of this encounter Care Teams Business Services Specialist Sales Relationship Specialty Start Date End Date Dara Tavera FNP [address] [place] [phone] PCP - General NURSE PRACTITIONER 10/13/18 documented as of this encounter
--- OUTSIDE RECORDS SUMMARY | 2025-04-20 21:15 | XMS_ITS | Encounter Summary ---
Author Organization [facility] Address [address] [place] [address] Care Team Providers Care Custom Framing Specialist Name Role Phone Dara Tavera Primary Care Provider Encounter Details Date Type Department Care Team (Latest Contact Info) Description 10/09/2005 Outpatient Historical [facility] [address] [place] [address] [address], [facility] Unspecified Nonpsychotic Mental Disorder (Primary Dx) Social History Tobacco Use Types Packs/Day Years Used Date Smoking Tobacco: Never Assessed Comments Unknown Sex and Gender Information Value Date Recorded Sex Assigned at Not on file Legal Sex Female 5:22 AM EXPLOSIVE ORDNANCE DISPOSAL SPECIALIST Gender Identity Not on file Sexual Orientation Not on file documented as of this encounter Plan of Treatment Not on file documented as of this encounter Visit Diagnoses Diagnosis Unspecified nonpsychotic mental disorder- Primary documented in this encounter Additional Health Concerns Infection Onset Date Last Indicated Resolved Time VRE Comment:Urine 10/30/13 Resolved 11/04/2013 11/04/2013 8 10:33 AM EXPLOSIVE ORDNANCE DISPOSAL SPECIALIST R/O COVID-19 12/25/2019 12/25/2019 12/26/2019 2:46 PM CDT R/O COVID-19 05/09/2020 05/09/2020 05/09/2020 12:1 7 PM EXPLOSIVE ORDNANCE DISPOSAL SPECIALIST documented as of this encounter Care Teams Custom Framing Specialist Relationship Specialty Start Date End Date Dara Tavera FNP [address] [place] [phone] PCP - General NURSE PRACTITIONER 10/13/18 documented as of this encounter
--- OUTSIDE RECORDS SUMMARY | 2025-04-20 21:15 | XMS_ITS | Clinical Summary ---
Author Organization [facility] Address [address] [place] [address] Care Team Providers Care Mill Crane Operator Name Role Phone Dara Tavera GLASS ETCHER HELPER Primary Care Provider Allergies Active Allergy Reactions Criticality Noted Date Comments Adhesive Rash Low 02/12/2009 Codeine Nausea and Vomiting Low 02/12/2009 Duloxetine Other (See Comments) 02/24/2015 Fentanyl Hives High 11/07/2019 Fluoxetine Unknown 10/20/2018 Gabapentin Unknown,Hallucination Low 02/12/2009 Influenza Virus Vaccine Qv 6886-6137 (36 Mos+) Other (See Comments) 06/19/2014 pneumonia Ketorolac Tromethamine Other (See Comments) Low Adverse drug reaction Crumpler Unknown 02/12/2009 Other reaction(s): shakey Penicillins Rash [...] 9 Active fluticasone propionate (FLONASE) 50 mcg/spray Beals, Suspension nasal inhaler Administer 2 Sprays in [...] 07/07/2009 0 10/26/2012 Personal history of MRSA (pa thicillin resistant Staphylococcus aureus) 06/27/2009 018 Overview [...] asked 05/05/2019 How often do you attend anabaptist or scientology serv ices? Not asked 05/05/2019 Do you belong to any clubs o r organizations such as anabaptist groups, unions, fraternal or athletic groups, or [...] on file Legal Sex Female 5:22 AM PROPERTY MANAGEMENT SPECIALIST Gender Identity Not on file Sexual [...] Advance Directives For more information, please contact: [phone] Documents on File Type Date Recorded Patient Advertising Strategist Expl anation Advance Directive Living Will 03/11/2015 [...] 6:26 AM 06/22/2018 8:41 PM Care Teams Mill Crane Operator Relationship Specialty Start Date End Date Dara Tavera FNP [address] [place] [phone] PCP - General NURSE PRACTITIONER 10/13/18
--- OUTSIDE RECORDS SUMMARY | 2025-04-20 21:15 | XMS_ITS | Encounter Summary ---
Author Organization [facility] Address [address] [place] [address] Care Team Providers Care Bottom Brusher Name Role Phone Dara Taevra Primary Care Provider Encounter Details Date Type Department Care Team (Latest Contact Info) Description 08/21/2005 Outpatient Historical [facility] [address] [place] [address] AMBULANCE, [facility] DISRUPT OF EXTERNAL OPERATION WOUND (Primary Dx) Social History Tobacco Use Types Packs/Day Years Used Date Smoking Tobacco: Never Assessed Comments Unknown Sex and Gender Information Value Date Recorded Sex Assigned at Not on file Legal Sex Female 5:22 AM FRUIT THINNER Gender Identity Not on file Sexual Orientation Not on file documented as of this encounter Plan of Treatment Not on file documented as of this encounter Visit Diagnoses Diagnosis Disruption of external operation (surgical) wound- Primary documented in this encounter Additional Health Concerns Infection Onset Date Last Indicated Resolved Time VRE Comment:Urine 10/30/13 Resolved 11/04/2013 11/04/2013 8 10:33 AM FRUIT THINNER R/O COVID-19 12/25/2019 12/25/2019 12/26/2019 2:46 PM CDT R/O COVID-19 05/09/2020 05/09/2020 05/09/2020 12:1 7 PM FRUIT THINNER documented as of this encounter Care Teams Bottom Brusher Relationship Specialty Start Date End Date Dara Tavera FNP [address] [place] [address] PCP - General NURSE PRACTITIONER 10/13/18 documented as of this encounter
--- OUTSIDE RECORDS SUMMARY | 2025-04-20 21:15 | XMS_ITS | Encounter Summary ---
Author Organization [facility] Address [address] [place] [address] Care Team Providers Care Drywall Hanger Framer Name Role Phone Dara Tavera Primary Care Provider Encounter Details Date Type Department Care Team (Latest Contact Info) Description 11/17/2005 Outpatient Historical [facility] [address] [place] [address] AMBULANCE, [facility] Non-Healing Surgical Wound (Primary Dx) Social History Tobacco Use Types Packs/Day Years Used Date Smoking Tobacco: Never Assessed Comments Unknown Sex and Gender Information Value Date Recorded Sex Assigned at Not on file Legal Sex Female 5:22 AM CASINO CASHIER MANAGER Gender Identity Not on file Sexual Orientation Not on file documented as of this encounter Plan of Treatment Not on file documented as of this encounter Visit Diagnoses Diagnosis Non-healing surgical wound- Primary documented in this encounter Additional Health Concerns Infection Onset Date Last Indicated Resolved Time VRE Comment:Urine 10/30/13 Resolved 11/04/2013 11/04/2013 8 10:33 AM CASINO CASHIER MANAGER R/O COVID-19 12/25/2019 12/25/2019 12/26/2019 2:46 PM CDT R/O COVID-19 05/09/2020 05/09/2020 05/09/2020 12:1 7 PM CASINO CASHIER MANAGER documented as of this encounter Care Teams Drywall Hanger Framer Relationship Specialty Start Date End Date Dara Tavera FNP [address] [place] [phone] PCP - General NURSE PRACTITIONER 10/13/18 documented as of this encounter
--- OUTSIDE RECORDS SUMMARY | 2025-04-20 21:15 | XMS_ITS | Encounter Summary ---
Author Organization [facility] Address [address] [place] [address] Care Team Providers Care Tourist Guide Name Role Phone Dara Tavera Primary Care Provider Encounter Details Date Type Department Care Team (Latest Contact Info) Description 01/31/2006 Outpatient Historical [facility] [address] [place] [address] AMBULANCE, [facility] Unspecified Nonpsychotic Mental Disorder (Primary Dx) Social History Tobacco Use Types Packs/Day Years Used Date Smoking Tobacco: Never Assessed Comments Unknown Sex and Gender Information Value Date Recorded Sex Assigned at Not on file Legal Sex Female 5:22 AM ELECTRIC SHOVEL OPERATOR Gender Identity Not on file Sexual Orientation Not on file documented as of this encounter Plan of Treatment Not on file documented as of this encounter Visit Diagnoses Diagnosis Unspecified nonpsychotic mental disorder- Primary documented in this encounter Additional Health Concerns Infection Onset Date Last Indicated Resolved Time VRE Comment:Urine 10/30/13 Resolved 11/04/2013 11/04/2013 8 10:33 AM ELECTRIC SHOVEL OPERATOR R/O COVID-19 12/25/2019 12/25/2019 12/26/2019 2:46 PM CDT R/O COVID-19 05/09/2020 05/09/2020 05/09/2020 12:1 7 PM ELECTRIC SHOVEL OPERATOR documented as of this encounter Care Teams Tourist Guide Relationship Specialty Start Date End Date Dara Tavera FNP [address] [place] [phone] PCP - General NURSE PRACTITIONER 10/13/18 documented as of this encounter
--- OUTSIDE RECORDS SUMMARY | 2025-04-20 21:15 | XMS_ITS | Encounter Summary ---
Author Organization [facility] Address [address] [place] [address] Care Team Providers Care Career Education Teacher Name Role Phone Dara Tavera Primary Care Provider [phone] Encounter Details Date Type Department Care Team (Latest Contact Info) Description 02/07/2007 Outpatient Historical [facility] [address] [place] [address] AMBULANCE, [facility] Unspecified Nonpsychotic Mental Disorder (Primary Dx) Social History Tobacco Use Types Packs/Day Years Used Date Smoking Tobacco: Never Assessed Comments Unknown Sex and Gender Information Value Date Recorded Sex Assigned at Not on file Legal Sex Female 5:22 AM INSTRUMENTATION SUPERVISOR Gender Identity Not on file Sexual Orientation Not on file documented as of this encounter Plan of Treatment Not on file documented as of this encounter Visit Diagnoses Diagnosis Unspecified nonpsychotic mental disorder- Primary documented in this encounter Additional Health Concerns Infection Onset Date Last Indicated Resolved Time VRE Comment:Urine 10/30/13 Resolved 11/04/2013 11/04/2013 8 10:33 AM INSTRUMENTATION SUPERVISOR R/O COVID-19 12/25/2019 12/25/2019 12/26/2019 2:46 PM CDT R/O COVID-19 05/09/2020 05/09/2020 05/09/2020 12:1 7 PM INSTRUMENTATION SUPERVISOR documented as of this encounter Care Teams Career Education Teacher Relationship Specialty Start Date End Date Dara Tavera FNP [address] [place] [address] PCP - General NURSE PRACTITIONER 10/13/18 documented as of this encounter
--- OUTSIDE RECORDS SUMMARY | 2025-04-20 21:15 | XMS_ITS | Encounter Summary ---
Author Organization [facility] Address [address] [place] [address] Care Team Providers Care Machining Department Supervisor Name Role Phone Dara Tavera Primary Care Provider Encounter Details Date Type Department Care Team (Latest Contact Info) Description 02/20/2007 Outpatient Historical [facility] [address] [place] [address] AMBULANCE, [facility] Unspecified Nonpsychotic Mental Disorder (Primary Dx) Social History Tobacco Use Types Packs/Day Years Used Date Smoking Tobacco: Never Assessed Comments Unknown Sex and Gender Information Value Date Recorded Sex Assigned at Not on file Legal Sex Female 5:22 AM REFINISH TECHNICIAN Gender Identity Not on file Sexual Orientation Not on file documented as of this encounter Plan of Treatment Not on file documented as of this encounter Visit Diagnoses Diagnosis Unspecified nonpsychotic mental disorder- Primary documented in this encounter Additional Health Concerns Infection Onset Date Last Indicated Resolved Time VRE Comment:Urine 10/30/13 Resolved 11/04/2013 11/04/2013 8 10:33 AM REFINISH TECHNICIAN R/O COVID-19 12/25/2019 12/25/2019 12/26/2019 2:46 PM CDT R/O COVID-19 05/09/2020 05/09/2020 05/09/2020 12:1 7 PM REFINISH TECHNICIAN documented as of this encounter Care Teams Machining Department Supervisor Relationship Specialty Start Date End Date Dara Tavera FNP [address] [place] [phone] PCP - General NURSE PRACTITIONER 10/13/18 documented as of this encounter
--- OUTSIDE RECORDS SUMMARY | 2025-04-20 21:15 | XMS_ITS | Encounter Summary ---
Author Organization [facility] Address [address] [place] [address] Care Team Providers Care Film Waxer Name Role Phone Dara Tavera AMANDEEP Primary Care Provider Encounter Details Date Type Department Care Team (Late st Contact Info) Description 04/04/2007 Outpatient [facility] [address] [place] [address] AMBULANCE, [facility] Unspecified Chest Pain (Primary Dx) Social History Tobacco Use Types Packs/Day Years Used Date Smoking Tobacco: Never Assessed Comments Unknown Sex and Gender Information Value Date Recorded Sex Assigned at Not on file Legal Sex Female 5:22 AM TELEVISION NEWS VIDEO EDITOR Gender Identity Not on file Sexual Orientation [...] 10/30/13 Resolved 11/04/2013 11/04/2013 8 10:33 AM TELEVISION NEWS VIDEO EDITOR R/O COVID-19 12/25/2019 12/25/2019 12/26/2019 2:46 PM CDT R/O COVID-19 05/09/2020 05/09/2020 05/09/2020 12:1 7 PM TELEVISION NEWS VIDEO EDITOR documented as of this encounter Care Teams Film Waxer Relationship Specialty Start Date End Date Dara Tavera FNP [address] [place] [address] PCP - General NURSE PRACTITIONER 10/13/18 documented as of this encounter
--- OUTSIDE RECORDS SUMMARY | 2025-04-20 21:15 | XMS_ITS | Encounter Summary ---
Author Organization [facility] Address [address] [place] [address] Care Team Providers Care Ship Laborer Name Role Phone Dara Tavera AMANDEEP Primary Care Provider Encounter Details Date Type Department Care Team (Late st Contact Info) Description 05/21/2007 Emergency [facility] Emergency Department [address] [place] [address] Ed, Physician NO ADDRESS ON FILE Rory Lynn MD NO ADDRESS ON FILE Social History Tobacco Use Types Packs/Day Years Used Date Smoking Tobacco: Never Assessed Comments Unknown Sex and Gender Information Value Date Recorded Sex Assigned at Not on file Legal Sex Female 5:22 AM PEDIATRICIAN MANAGING PARTNER Gender Identity Not on file Sexual Orientation Not on file documented as of this encounter Plan of Treatment Not on file documented as of this encounter Procedures Procedure Name Priority Date/Time Associated Diagnosis Comments CBC WITH DIFFERENTIAL Routine 05/21/2007 6:18 PM PEDIATRICIAN MANAGING PARTNER documented in this encounter Results * (ABNORMAL) CBC WITH DIFFERENTIAL (05/21/2007 6:18 PM PEDIATRICIAN MANAGING PARTNER) WBC 9.5 4.5 - 11.0 K/ul INTERFACE [...] 0.2 K/ul INTERFACE SYSTEM 05/21/2007 6:18 PM PEDIATRICIAN MANAGING PARTNER us Rory Lynn MD HEMATOLOGY ORDERABLES Hakan earl INTERFACE SYSTEM Refer to clinic/hospital department documented in this encounter Visit Diagnoses Not on filedocumented in this encounter Additional Health Concerns Infection Onset Date Last Indicated Resolved Time VRE Comment:Urine 10/30/13 Resolved 11/04/2013 11/04/2013 8 10:33 AM PEDIATRICIAN MANAGING PARTNER R/O COVID-19 12/25/2019 12/25/2019 12/26/2019 2:46 PM CDT R/O COVID-19 05/09/2020 05/09/2020 05/09/2020 12:1 7 PM PEDIATRICIAN MANAGING PARTNER documented as of this encounter Care Teams Ship Laborer Relationship Specialty Start Date End Date Dara Tavera FNP [address] [place] [address] PCP - General NURSE PRACTITIONER 10/13/18 documented as of this encounter
--- OUTSIDE RECORDS SUMMARY | 2025-04-20 21:15 | XMS_ITS | Encounter Summary ---
Author Organization [facility] Address [address] [place] [address] Care Team Providers Care Receiving Worker Name Role Phone Dara Tavera Primary Care Provider Encounter Details Date Type Department Care Team (Latest Contact Info) Description 08/31/2005 Outpatient Historical [facility] [address] [place] [address] AMBULANCE, [facility] Other Injury of Abdomen (Primary Dx) Social History Tobacco Use Types Packs/Day Years Used Date Smoking Tobacco: Never Assessed Comments Unknown Sex and Gender Information Value Date Recorded Sex Assigned at Not on file Legal Sex Female 5:22 AM REGISTER OF WILLS Gender Identity Not on file Sexual Orientation Not on file documented as of this encounter Plan of Treatment Not on file documented as of this encounter Visit Diagnoses Diagnosis Other injury of abdomen- Primary documented in this encounter Additional Health Concerns Infection Onset Date Last Indicated Resolved Time VRE Comment:Urine 10/30/13 Resolved 11/04/2013 11/04/2013 8 10:33 AM REGISTER OF WILLS R/O COVID-19 12/25/2019 12/25/2019 12/26/2019 2:46 PM CDT R/O COVID-19 05/09/2020 05/09/2020 05/09/2020 12:1 7 PM REGISTER OF WILLS documented as of this encounter Care Teams Receiving Worker Relationship Specialty Start Date End Date Dara Tavera FNP [address] [place] [phone] PCP - General NURSE PRACTITIONER 10/13/18 documented as of this encounter
--- OUTSIDE RECORDS SUMMARY | 2025-04-20 21:15 | XMS_ITS | Encounter Summary ---
Author Organization [facility] Address [address] [place] [address] Care Team Providers Care Urgent Care Physician Assistant Name Role Phone Dara Tavera Primary Care Provider [phone] Encounter Details Date Type Department Care Team (Latest Contact Info) Description 03/05/2006 Outpatient Historical [facility] [address] [place] [address] AMBULANCE, [facility] Other Malaise and Fatigue (Primary Dx) Social History Tobacco Use Types Packs/Day Years Used Date Smoking Tobacco: Never Assessed Comments Unknown Sex and Gender Information Value Date Recorded Sex Assigned at Not on file Legal Sex Female 5:22 AM BOX PRINTING MACHINE OPERATOR Gender Identity Not on file Sexual Orientation Not on file documented as of this encounter Plan of Treatment Not on file documented as of this encounter Visit Diagnoses Diagnosis Other malaise and fatigue- Primary documented in this encounter Additional Health Concerns Infection Onset Date Last Indicated Resolved Time VRE Comment:Urine 10/30/13 Resolved 11/04/2013 11/04/2013 8 10:33 AM BOX PRINTING MACHINE OPERATOR R/O COVID-19 12/25/2019 12/25/2019 12/26/2019 2:46 PM CDT R/O COVID-19 05/09/2020 05/09/2020 05/09/2020 12:1 7 PM BOX PRINTING MACHINE OPERATOR documented as of this encounter Care Teams Urgent Care Physician Assistant Relationship Specialty Start Date End Date Dara Tavera FNP [address] [place] [address] PCP - General NURSE PRACTITIONER 10/13/18 documented as of this encounter
--- OUTSIDE RECORDS SUMMARY | 2025-04-20 21:15 | XMS_ITS | Encounter Summary ---
Author Organization [facility] Address [address] [place] [address] Care Team Providers Care Cotton Grader Name Role Phone Dara Tavera Primary Care Provider Encounter Details Date Type Department Care Team (Late st Contact Info) Description 05/08/2007 Emergency [facility] Emergency Department [address] [place] [address] [place], NO ADDRESS ON FILE Shortness of Breath (Primary Dx) Social History Tobacco Use Types Packs/Day Years Used Date Smoking Tobacco: Never Assessed Comments Unknown Sex and Gender Information Value Date Recorded Sex Assigned at Not on file Legal Sex Female 5:22 AM E LEARNING DEVELOPER Gender Identity Not on file Sexual Orientation Not on file documented as of this encounter Plan of Treatment Not on file documented as of this encounter Visit Diagnoses Diagnosis Shortness of breath- Primary documented in this encounter Additional Health Concerns Infection Onset Date Last Indicated Resolved Time VRE Comment:Urine 10/30/13 Resolved 11/04/2013 11/04/2013 8 10:33 AM E LEARNING DEVELOPER R/O COVID-19 12/25/2019 12/25/2019 12/26/2019 2:46 PM CDT R/O COVID-19 05/09/2020 05/09/2020 05/09/2020 12:1 7 PM E LEARNING DEVELOPER documented as of this encounter Care Teams Cotton Grader Relationship Specialty Start Date End Date Dara Tavera FNP [address] [place] [address] PCP - General NURSE PRACTITIONER 10/13/18 documented as of this encounter
--- OUTSIDE RECORDS SUMMARY | 2025-04-20 21:15 | XMS_ITS | Encounter Summary ---
Author Organization [facility] Address [address] [place] [address] Care Team Providers Care Building Construction Ironworker Name Role Phone Dara Tavera Primary Care Provider Encounter Details Date Type Department Care Team (Late st Contact Info) Description 04/07/2008 Outpatient Historical [facility] Ambulance [address] [place] [address] AMBULANCE, [facility] Social History Tobacco Use Types Packs/Day Years Used Date Smoking Tobacco: Never Assessed Comments Unknown Sex and Gender Information Value Date Recorded Sex Assigned at Not on file Legal Sex Female 5:[address] Gender Identity Not on file Sexual Orientation Not on file documented as of this encounter Plan of Treatment Not on file documented as of this encounter Visit Diagnoses Not on filedocumented in this encounter Additional Health Concerns Infection Onset Date Last Indicated Resolved Time VRE Comment:Urine 10/30/13 Resolved 11/04/2013 11/04/2013 8 10:[address] JUDGE R/O COVID-19 12/25/2019 12/25/2019 12/26/2019 2:46 PM CDT R/O COVID-19 05/09/2020 05/09/2020 05/09/2020 12:[address] JUDGE documented as of this encounter Care Teams Building Construction Ironworker Relationship Specialty Start Date End Date Dara Tavera FNP [address] [place] [address] PCP - General NURSE PRACTITIONER 10/13/18 documented as of this encounter
--- OUTSIDE RECORDS SUMMARY | 2025-04-20 21:15 | XMS_ITS | Encounter Summary ---
Author Organization [facility] Address [address] [place] [address] Care Team Providers Care Flooring Professional Name Role Phone Dara Tavera HIDE BUFFER Primary Care Provider Encounter Details Date Type Department Care Team (Late st Contact Info) Description 06/14/2007 Outpatient Historical [facility] Amaury De La Rosa MD NO ADDRESS ON FILE Richie Vargas Jr., MD [address] [place] [address] Social History Tobacco Use Types Packs/Day Years Used Date Smoking Tobacco: Never Assessed Comments Unknown Sex and Gender Information Value Date Recorded Sex Assigned at Not on file Legal Sex Female 5:22 AM COLLATERAL SPECIALIST Gender Identity Not on file Sexual Orientation Not on file documented as of this encounter Plan of Treatment Not on file documented as of this encounter Procedures Procedure Name Priority Date/Time Associated Diagnosis Comments URINALYSIS W/REFLEX MICROSCOPIC Routine 06/15/2007 12:13 PM COLLATERAL SPECIALIST POC GLUCOSE Routine 06/15/2007 11:42 AM COLLATERAL SPECIALIST POC GLUCOSE Routine 06/15/2007 5:10 AM COLLATERAL SPECIALIST CARDIAC ENZYMES Routine 06/15/2007 4:21 AM COLLATERAL SPECIALIST CBC WITH DIFFERENTIAL Routine 06/15/2007 4:21 AM COLLATERAL SPECIALIST TSH Routine 06/15/2007 4:21 AM COLLATERAL SPECIALIST T4 FREE Routine 06/15/2007 4:21 AM COLLATERAL SPECIALIST LIPID PANEL Routine 06/15/2007 4:21 AM COLLATERAL SPECIALIST COMPREHENSIVE METABOLIC PANEL Routine 06/15/2007 4:21 AM COLLATERAL SPECIALIST POC GLUCOSE Routine 06/15/2007 2:02 AM COLLATERAL SPECIALIST CARDIAC ENZYMES Routine 06/14/2007 10:20 PM COLLATERAL SPECIALIST CARDIAC ENZYMES Routine 06/14/2007 4:07 PM COLLATERAL SPECIALIST CBC WITH DIFFERENTIAL Routine 06/14/2007 4:07 PM COLLATERAL SPECIALIST PTT Routine 06/14/2007 4:07 PM COLLATERAL SPECIALIST PROTIME-INR Routine 06/14/2007 4:07 PM COLLATERAL SPECIALIST BASIC METABOLIC PANEL Routine 06/14/2007 4:07 PM COLLATERAL SPECIALIST documented in this encounter Results * URINALYSIS (06/15/2007 12:13 PM COLLATERAL SPECIALIST) COLOR UA Yellow Straw INTERFACE SYSTEM CLARITY [...] No INTERFACE SYSTEM 06/15/2007 12:1 3 PM COLLATERAL SPECIALIST us Richie Vargas Jr., MD URINE ORDERABLES Edite d INTERFACE SYSTEM Refer to clinic/hospital department * (ABNORMAL) POC GLUCOSE (06/15/2007 11:42 AM COLLATERAL SPECIALIST) GLUCOSE POC 114(H) 60 - 100 mg/dL INTERFACE SYSTEM 06/15/2007 11:4 2 AM COLLATERAL SPECIALIST Result Tracey Vargas Jr., MD POINT OF CARE TESTING Edited Performing Organization Address [facility] Phone Number INTERFACE SYSTEM Refer to clinic/hospital department * (ABNORMAL) POC GLUCOSE (06/15/2007 5:10 AM COLLATERAL SPECIALIST) GLUCOSE POC 116(H) 60 - 100 mg/dL INTERFACE SYSTEM 06/15/2007 5:10 AM COLLATERAL SPECIALIST Result Tracey Vargas Jr., MD POINT OF CARE TESTING Edited Performing Organization Address [facility] Phone Number INTERFACE SYSTEM Refer to clinic/hospital department * TSH (06/15/2007 4:21 AM COLLATERAL SPECIALIST) TSH 1.340 0.350 - 5.500 uIU/ml INTERFACE SYSTEM 06/15/2007 4:21 AM COLLATERAL SPECIALIST Result Tracey Vargas Jr., MD CHEMISTRY ORDERABLES E dited Performing Organization Address [facility] Phone Number INTERFACE SYSTEM Refer to clinic/hospital department * (ABNORMAL) T4 FREE (06/15/2007 4:21 AM COLLATERAL SPECIALIST) T4 FREE 0.64(L) 0.89 - 1.76 ng/dL INTERFACE SYSTEM 06/15/2007 4:21 AM COLLATERAL SPECIALIST Result Tracey Vargas Jr., MD CHEMISTRY ORDERABLES E dited Performing Organization Address [facility] Phone Number INTERFACE SYSTEM Refer to clinic/hospital department * (ABNORMAL) LIPID PANEL (06/15/2007 4:21 AM COLLATERAL SPECIALIST) CHOLESTEROL 208(H) 75 - 200 mg/dL INTERFACE SYSTEM HDL 41 40 - 60 mg/dL INTERFACE SYSTEM TRIGLYCERIDE 206(H) 0 - 168 mg/dL INTERFACE SYSTEM CALCULATED LDL CHOLESTEROL 126 0 - 130 mg/dL INTERFACE SYSTEM CALCULATED TOTAL CHOLESTEROL TO HDL RATIO 5.07(H) 3.27 - 4.44 INTERFACE SYSTEM 06/15/2007 4:21 AM COLLATERAL SPECIALIST Richie Vargas Jr., MD CHEMISTRY ORDERABLES E dited Performing Organization Address [facility] Phone Number INTERFACE SYSTEM Refer to clinic/hospital department * (ABNORMAL) COMPREHENSIVE METABOLIC PANEL (06/15/2007 4:21 AM COLLATERAL SPECIALIST) GLUCOSE 94 70 - 110 mg/dL INTERFACE [...] 295 mOsm/Kg INTERFACE SYSTEM 06/15/2007 4:21 AM COLLATERAL SPECIALIST Richie Vargas Jr., MD CHEMISTRY ORDERABLES E dited Performing Organization Address [facility] Phone Number INTERFACE SYSTEM Refer to clinic/hospital department * (ABNORMAL) CBC WITH DIFFERENTIAL (06/15/2007 4:21 AM COLLATERAL SPECIALIST) WBC 13.1(H) 4.5 - 11.0 K/ul INTERFACE [...] 0.2 K/ul INTERFACE SYSTEM 06/15/2007 4:21 AM COLLATERAL SPECIALIST Richie Vargas Jr., MD HEMATOLOGY ORDERABLES Edited Performing Organization Address [facility] de Phone Number INTERFACE SYSTEM Refer to clinic/hospital department * CARDIAC ENZYMES (06/15/2007 4:21 AM COLLATERAL SPECIALIST) TROPONIN I <0.1 0.0 - 1.3 ng/mL INTERFACE SYSTEM CKMB 1.0 0.0 - 5.0 ng/mL INTERFACE SYSTEM 06/15/2007 4:21 AM COLLATERAL SPECIALIST Amaury De La Rosa MD CHEMISTRY ORDERABLES Edited Performing Organization Address City/[facility]/ZIP Co de Phone Number INTERFACE SYSTEM Refer to clinic/hospital department * (ABNORMAL) POC GLUCOSE (06/15/2007 2:02 AM COLLATERAL SPECIALIST) GLUCOSE POC 115(H) 60 - 100 mg/dL INTERFACE SYSTEM 06/15/2007 2:02 AM COLLATERAL SPECIALIST us Richie Vargas Jr., MD POINT OF CARE TESTING Edited Performing Organization Address [facility] Phone Number INTERFACE SYSTEM Refer to clinic/hospital department * CARDIAC ENZYMES (06/14/2007 10:20 PM COLLATERAL SPECIALIST) Pathologist [facility] TROPONIN I <0.1 0.0 - 1.3 ng/mL INTERFACE SYSTEM CKMB 0.3 0.0 - 5.0 ng/mL INTERFACE SYSTEM 06/14/2007 10:2 0 PM COLLATERAL SPECIALIST Amaury De La Rosa MD CHEMISTRY ORDERABLES Edited Performing Organization Address [facility] Phone Number INTERFACE SYSTEM Refer to clinic/hospital department * (ABNORMAL) CBC WITH DIFFERENTIAL (06/14/2007 4:07 PM COLLATERAL SPECIALIST) Pathologist [facility] WBC 14.3(H) 4.5 - 11.0 K/ul INTERFACE [...] 0.2 K/ul INTERFACE SYSTEM 06/14/2007 4:07 PM COLLATERAL SPECIALIST Amaury De La Rosa MD HEMATOLOGY ORDERABLES Edited Performing Organization Address [facility] Phone Number INTERFACE SYSTEM Refer to clinic/hospital department * PTT (06/14/2007 4:07 PM COLLATERAL SPECIALIST) PTT 34.4 21.6 - 35.6 Secs INTERFACE SYSTEM 06/14/2007 4:07 PM COLLATERAL SPECIALIST Amaury De La Rosa MD HEMATOLOGY ORDERABLES Edited Performing Organization Address [facility] Phone Number INTERFACE SYSTEM Refer to clinic/hospital department * PROTIME-INR (06/14/2007 4:07 PM COLLATERAL SPECIALIST) PROTIME 14.0 13.0 - 15.7 Secs INTERFACE SYSTEM INR 1.0 INTERFACE SYSTEM 06/14/2007 4:07 PM COLLATERAL SPECIALIST Amaury De La Rosa MD HEMATOLOGY ORDERABLES Edited Performing Organization Address [facility] Phone Number INTERFACE SYSTEM Refer to clinic/hospital department * (ABNORMAL) BASIC METABOLIC PANEL (06/14/2007 4:07 PM COLLATERAL SPECIALIST) GLUCOSE 90 70 - 110 mg/dL INTERFACE [...] 295 mOsm/Kg INTERFACE SYSTEM 06/14/2007 4:07 PM COLLATERAL SPECIALIST Amaury De La Rosa MD CHEMISTRY ORDERABLES Edited Performing Organization Address [facility] de Phone Number INTERFACE SYSTEM Refer to clinic/hospital department * CARDIAC ENZYMES (06/14/2007 4:07 PM COLLATERAL SPECIALIST) TROPONIN I <0.1 0.0 - 1.3 ng/mL INTERFACE SYSTEM CKMB 1.3 0.0 - 5.0 ng/mL INTERFACE SYSTEM 06/14/2007 4:07 PM COLLATERAL SPECIALIST Amaury De La Rosa MD CHEMISTRY ORDERABLES Edited Performing Organization Address [facility] Phone Number INTERFACE SYSTEM Refer to clinic/hospital department documented in this encounter Visit Diagnoses Not on filedocumented in this encounter Additional Health Concerns Infection Onset Date Last Indicated Resolved Time VRE Comment:Urine 10/30/13 Resolved 11/04/2013 11/04/2013 8 10:33 AM COLLATERAL SPECIALIST R/O COVID-19 12/25/2019 12/25/2019 12/26/2019 2:46 PM CDT R/O COVID-19 05/09/2020 05/09/2020 05/09/2020 12:1 7 PM COLLATERAL SPECIALIST documented as of this encounter Care Teams Flooring Professional Relationship Specialty Start Date End Date Dara Tavera FNP [address] [place] [phone] PCP - General NURSE PRACTITIONER 10/13/18 documented as of this encounter
--- OUTSIDE RECORDS SUMMARY | 2025-04-20 21:15 | XMS_ITS | Encounter Summary ---
Author Organization [facility] Address [address] [place] [address] Care Team Providers Care Director Customer Name Role Phone Dara Tavera Primary Care Provider Encounter Details Date Type Department Care Team (Latest Contact Info) Description 02/07/2006 Outpatient Historical [facility] Medicine [address] [facility] [address] [place] [address] Ryan Don NP NO ADDRESS ON FILE Polydipsia (Primary Dx); Nausea Alone; Open Wnd Anterior Abdomen Social History Tobacco Use Types Packs/Day Years Used Date Smoking Tobacco: Never Assessed Comments Unknown Sex and Gender Information Value Date Recorded Sex Assigned at Not on file Legal Sex Female 5:22 AM JACKET CHANGER Gender Identity Not on file Sexual Orientation [...] 10/30/13 Resolved 11/04/2013 11/04/2013 8 10:33 AM JACKET CHANGER R/O COVID-19 12/25/2019 12/25/2019 12/26/2019 2:46 PM CDT R/O COVID-19 05/09/2020 05/09/2020 05/09/2020 12:1 7 PM JACKET CHANGER documented as of this encounter Care Teams Director Customer Relationship Specialty Start Date End Date Dara Tavera FNP [address] [place] [address] PCP - General NURSE PRACTITIONER 10/13/18 documented as of this encounter
--- OUTSIDE RECORDS SUMMARY | 2025-04-20 21:15 | XMS_ITS | Encounter Summary ---
Author Organization [facility] Address [address] [place] [address] Care Team Providers Care Certified Hand Therapist Name Role Phone Dara Tavera AMANDEEP Primary Care Provider Encounter Details Date Type Department Care Team (Late st Contact Info) Description 06/03/2007 Emergency [facility] Emergency Department [address] [place] [address] Ed, Physician NO ADDRESS ON FILE Oniel Sainz MD [address] [place] [address] Social History Tobacco Use Types Packs/Day Years Used Date Smoking Tobacco: Never Assessed Comments Unknown Sex and Gender Information Value Date Recorded Sex Assigned at Not on file Legal Sex Female 5:22 AM FUEL CELL TEST ENGINEER Gender Identity Not on file Sexual Orientation Not on file documented as of this encounter Plan of Treatment Not on file documented as of this encounter Procedures Procedure Name Priority Date/Time Associated Diagnosis Comments CBC WITH DIFFERENTIAL Routine 06/03/2007 9:39 PM FUEL CELL TEST ENGINEER COMPREHENSIVE METABOLIC PANEL Routine 06/03/2007 9:39 PM FUEL CELL TEST ENGINEER URINALYSIS W/REFLEX MICROSCOPIC Routine 06/03/2007 9:26 PM FUEL CELL TEST ENGINEER documented in this encounter Results * (ABNORMAL) COMPREHENSIVE METABOLIC PANEL (06/03/2007 9:39 PM FUEL CELL TEST ENGINEER) [facility] GLUCOSE 97 70 - 110 mg/dL [...] 295 mOsm/Kg INTERFACE SYSTEM 06/03/2007 9:39 PM FUEL CELL TEST ENGINEER us Oniel Sainz MD CHEMISTRY ORDERABLES Edited INTERFACE SYSTEM Refer to clinic/hospital department * (ABNORMAL) CBC WITH DIFFERENTIAL (06/03/2007 9:39 PM FUEL CELL TEST ENGINEER) Pathologist [facility] WBC 9.5 4.5 - 11.0 K/ul INTERFACE [...] 0.2 K/ul INTERFACE SYSTEM 06/03/2007 9:39 PM FUEL CELL TEST ENGINEER Oniel Sainz MD HEMATOLOGY ORDERABLES Edited Performing Organization Address [facility] de Phone Number INTERFACE SYSTEM Refer to clinic/hospital department * URINALYSIS (06/03/2007 9:26 PM FUEL CELL TEST ENGINEER) COLOR UA Yellow Straw INTERFACE SYSTEM CLARITY [...] No No INTERFACE SYSTEM 06/03/2007 9:26 PM FUEL CELL TEST ENGINEER Oniel Sainz MD URINE ORDERABLES Edited Performing Organization Address [facility] Co de Phone Number INTERFACE SYSTEM Refer to clinic/hospital department documented in this encounter Visit Diagnoses Not on filedocumented in this encounter Additional Health Concerns Infection Onset Date Last Indicated Resolved Time VRE Comment:Urine 10/30/13 Resolved 11/04/2013 11/04/2013 8 10:33 AM FUEL CELL TEST ENGINEER R/O COVID-19 12/25/2019 12/25/2019 12/26/2019 2:46 PM CDT R/O COVID-19 05/09/2020 05/09/2020 05/09/2020 12:1 7 PM FUEL CELL TEST ENGINEER documented as of this encounter Care Teams Certified Hand Therapist Relationship Specialty Start Date End Date Dara Tavera FNP [address] [place] [address] PCP - General NURSE PRACTITIONER 10/13/18 documented as of this encounter
--- OUTSIDE RECORDS SUMMARY | 2025-04-20 21:15 | XMS_ITS | Encounter Summary ---
Author Organization [facility] Address [address] [place] [address] Care Team Providers Care Police Inspector Name Role Phone Dara Tavera Primary Care Provider [phone] Encounter Details Date Type Department Care Team (Latest Contact Info) Description 07/18/2005 Outpatient Historical [facility] Family [facility]- [facility] [facility] [address] [place] [address] Faiza Petersen MD NO ADDRESS ON FILE PREOP EXAM OTHER UNSPECIFIED (Primary Dx); ESOPHAGEAL REFLUX; CHEST PAIN NEC Social History Tobacco Use Types Packs/Day Years Used Date Smoking Tobacco: Never Assessed Comments Unknown Sex and Gender Information Value Date Recorded Sex Assigned at Not on file Legal Sex Female 5:22 AM ORCHARDIST Gender Identity Not on file Sexual Orientation Not on file documented as of this encounter Plan of Treatment Not on file documented as of this encounter Visit Diagnoses Diagnosis Preoperative examination, unspecified- Primary Esophageal reflux Other chest pain documented in this encounter Additional Health Concerns Infection Onset Date Last Indicated Resolved Time VRE Comment:Urine 10/30/13 Resolved 11/04/2013 11/04/2013 8 10:33 AM ORCHARDIST R/O COVID-19 12/25/2019 12/25/2019 12/26/2019 2:46 PM CDT R/O COVID-19 05/09/2020 05/09/2020 05/09/2020 12:1 7 PM ORCHARDIST documented as of this encounter Care Teams Police Inspector Relationship Specialty Start Date End Date Dara Tavera FNP [address] [place] [address] PCP - General NURSE PRACTITIONER 10/13/18 documented as of this encounter
--- OUTSIDE RECORDS SUMMARY | 2025-04-20 21:15 | XMS_ITS | Encounter Summary ---
Author Organization [facility] Address [address] [place] [address] Care Team Providers Care Export Manager Name Role Phone Dara Tavera Primary Care Provider Encounter Details Date Type Department Care Team (Latest Contact Info) Description 09/19/2005 Outpatient Historical [facility] Ambulance [address] [place] [address] AMBULANCE, [facility] Unspecified Hemorrhage (Primary Dx) Social History Tobacco Use Types Packs/Day Years Used Date Smoking Tobacco: Never Assessed Comments Unknown Sex and Gender Information Value Date Recorded Sex Assigned at Not on file Legal Sex Female 5:22 AM DE ICER KIT ASSEMBLER Gender Identity Not on file Sexual Orientation Not on file documented as of this encounter Plan of Treatment Not on file documented as of this encounter Visit Diagnoses Diagnosis Hemorrhage, unspecified- Primary documented in this encounter Additional Health Concerns Infection Onset Date Last Indicated Resolved Time VRE Comment:Urine 10/30/13 Resolved 11/04/2013 11/04/2013 8 10:33 AM DE ICER KIT ASSEMBLER R/O COVID-19 12/25/2019 12/25/2019 12/26/2019 2:46 PM CDT R/O COVID-19 05/09/2020 05/09/2020 05/09/2020 12:1 7 PM DE ICER KIT ASSEMBLER documented as of this encounter Care Teams Export Manager Relationship Specialty Start Date End Date Dara Tavera FNP [address] [place] [phone] PCP - General NURSE PRACTITIONER 10/13/18 documented as of this encounter
--- OUTSIDE RECORDS SUMMARY | 2025-04-20 21:15 | XMS_ITS | Encounter Summary ---
Author Organization [facility] Address [address] [place] [address] Care Team Providers Care Signal Timer Name Role Phone Dara Tavera Primary Care Provider Encounter Details Date Type Department Care Team (Late st Contact Info) Description 05/13/2007 Outpatient [facility] [address] [place] [address] AMBULANCE, [facility] Social History Tobacco Use Types Packs/Day Years Used Date Smoking Tobacco: Never Assessed Comments Unknown Sex and Gender Information Value Date Recorded Sex Assigned at Not on file Legal Sex Female 5:22 AM CO PILOT Gender Identity Not on file Sexual Orientation Not on file documented as of this encounter Plan of Treatment Not on file documented as of this encounter Visit Diagnoses Not on filedocumented in this encounter Additional Health Concerns Infection Onset Date Last Indicated Resolved Time VRE Comment:Urine 10/30/13 Resolved 11/04/2013 11/04/2013 8 10:33 AM CO PILOT R/O COVID-19 12/25/2019 12/25/2019 12/26/2019 2:46 PM CDT R/O COVID-19 05/09/2020 05/09/2020 05/09/2020 12:1 7 PM CO PILOT documented as of this encounter Care Teams Signal Timer Relationship Specialty Start Date End Date Dara Tavera FNP [address] [place] [phone] PCP - General NURSE PRACTITIONER 10/13/18 documented as of this encounter
--- OUTSIDE RECORDS SUMMARY | 2025-04-20 21:15 | XMS_ITS | Encounter Summary ---
Author Organization [facility] Address [address] [place] [address] Care Team Providers Care Locksmith Helper Name Role Phone Dara Tavera AMANDEEP Primary Care Provider Encounter Details Date Type Department Care Team (Late st Contact Info) Description 05/16/2007 Emergency [facility] [address] [place] [address] Ed, Physician NO ADDRESS ON FILE Thiago Mota MD NO ADDRESS ON FILE Social History Tobacco Use Types Packs/Day Years Used Date Smoking Tobacco: Never Assessed Comments Unknown Sex and Gender Information Value Date Recorded Sex Assigned at Not on file Legal Sex Female 5:22 AM APPRENTICE ELECTRICIAN Gender Identity Not on file Sexual Orientation Not on file documented as of this encounter Plan of Treatment Not on file documented as of this encounter Procedures Procedure Name Priority Date/Time Associated Diagnosis Comments URINALYSIS MICROSCOPY ONLY Routine 05/16/2007 4:37 PM APPRENTICE ELECTRICIAN URINALYSIS W/REFLEX MICROSCOPIC Routine 05/16/2007 4:37 PM APPRENTICE ELECTRICIAN CBC WITH DIFFERENTIAL Routine 05/16/2007 4:32 PM APPRENTICE ELECTRICIAN LIPASE Routine 05/16/2007 4:32 PM APPRENTICE ELECTRICIAN AMYLASE Routine 05/16/2007 4:32 PM APPRENTICE ELECTRICIAN COMPREHENSIVE METABOLIC PANEL Routine 05/16/2007 4:32 PM APPRENTICE ELECTRICIAN documented in this encounter Results * (ABNORMAL) URINALYSIS (05/16/2007 4:37 PM APPRENTICE ELECTRICIAN) COLOR UA Yellow Straw INTERFACE SYSTEM CLARITY [...] Yes(A) No INTERFACE SYSTEM 05/16/2007 4:37 PM APPRENTICE ELECTRICIAN us Thiago Mota MD URINE ORDERABLES Edited Performing Organization Address [facility] Phone Number INTERFACE SYSTEM Refer to clinic/hospital department * (ABNORMAL) URINALYSIS MICROSCOPY ONLY (05/16/2007 4:37 PM APPRENTICE ELECTRICIAN) WBC URINE None Seen 0 - 2 INTERFACE SYSTEM RBC UA None Seen 0 - 2 INTERFACE SYSTEM HYALINE CAST None Seen 0 - 2 INTERFA CE SYSTEM BACTERIA UA Few(A) None Seen INTERFAC E SYSTEM 05/16/2007 4:37 PM APPRENTICE ELECTRICIAN us Thiago Mota MD URINE ORDERABLES Edited Performing Organization Address [facility] Phone Number INTERFACE SYSTEM Refer to clinic/hospital department * LIPASE (05/16/2007 4:32 PM APPRENTICE ELECTRICIAN) LIPASE 27 6 - 51 U/L INTERFACE SYSTEM 05/16/2007 4:32 PM APPRENTICE ELECTRICIAN us Thiago Mota MD CHEMISTRY ORDERABLES Edited Performing Organization Address [facility] Phone Number INTERFACE SYSTEM Refer to clinic/hospital department * AMYLASE (05/16/2007 4:32 PM APPRENTICE ELECTRICIAN) AMYLASE 48 20 - 104 U/L INTERFACE SYSTEM 05/16/2007 4:32 PM APPRENTICE ELECTRICIAN us Thiago Mota MD CHEMISTRY ORDERABLES Edited Performing Organization Address [facility] Phone Number INTERFACE SYSTEM Refer to clinic/hospital department * (ABNORMAL) COMPREHENSIVE METABOLIC PANEL (05/16/2007 4:32 PM APPRENTICE ELECTRICIAN) GLOBULIN (CALC) 3.0 2.4 - 3.9 g/dL [...] 295 mOsm/Kg INTERFACE SYSTEM 05/16/2007 4:32 PM APPRENTICE ELECTRICIAN us Thiago Mota MD CHEMISTRY ORDERABLES Edited Performing Organization Address [facility] Co de Phone Number INTERFACE SYSTEM Refer to clinic/hospital department * (ABNORMAL) CBC WITH DIFFERENTIAL (05/16/2007 4:32 PM APPRENTICE ELECTRICIAN) WBC 13.2(H) 4.5 - 11.0 K/ul INTERFACE [...] 0.2 K/ul INTERFACE SYSTEM 05/16/2007 4:32 PM APPRENTICE ELECTRICIAN Thiago Mota MD HEMATOLOGY ORDERABLES Edited INTERFACE SYSTEM Refer to clinic/hospital department documented in this encounter Visit Diagnoses Not on filedocumented in this encounter Additional Health Concerns Infection Onset Date Last Indicated Resolved Time VRE Comment:Urine 10/30/13 Resolved 11/04/2013 11/04/2013 8 10:33 AM APPRENTICE ELECTRICIAN R/O COVID-19 12/25/2019 12/25/2019 12/26/2019 2:46 PM CDT R/O COVID-19 05/09/2020 05/09/2020 05/09/2020 12:1 7 PM APPRENTICE ELECTRICIAN documented as of this encounter Care Teams Locksmith Helper Relationship Specialty Start Date End Date Dara Tavera FNP [address] [place] [phone] PCP - General NURSE PRACTITIONER 10/13/18 documented as of this encounter
--- OUTSIDE RECORDS SUMMARY | 2025-04-20 21:15 | XMS_ITS | Encounter Summary ---
Author Organization [facility] Address [address] [place] [address] Care Team Providers Care Insurance Customer Service Specialist Name Role Phone Dara Tavera AMANDEEP Primary Care Provider [phone] Encounter Details Date Type Department Care Team (Late st Contact Info) Description 04/04/2007 Emergency [facility] Emergency Department [address] [place] [address] Sammi Justice MD [address] [facility] [address] [place] [address] Unspecified Chest Pain (Primary Dx) Social History Tobacco Use Types Packs/Day Years Used Date Smoking Tobacco: Never Assessed Comments Unknown Sex and Gender Information Value Date Recorded Sex Assigned at Not on file Legal Sex Female 5:22 AM MACHINE WOOD SANDER Gender Identity Not on file Sexual Orientation [...] Edite d Performing Organization Address [facility] Phone Number INTERFACE SYSTEM Refer [...] Edite d Performing Organization Address [facility] Phone Number INTERFACE SYSTEM Refer [...] Goal INR 3.0; range 2.5 - 3.5 POST-IL Goal INR 2.5; range 2.0 - 3.0 or Goal 3.0; range 2.5 - 3.5 Atrial Fibrillation Goal INR 2.5; range 2.0 - 3.0 Ischemic Stroke Goal INR 2.5; range 2.0 - 3.0 For additional information see Guidelines for Anticoagulation available from the pharmacy [facility]. 04/04/2007 1:03 AM CDT Sammi Justice MD HEMATOLOGY ORDERABLES Edite d Performing Organization Address [facility] Phone Number INTERFACE SYSTEM Refer [...] MD CHEMISTRY ORDERABLES Edited Performing Organization Address [facility] Phone Number INTERFACE SYSTEM Refer [...] ORDERABLES Edited Performing Organization Address [facility] Phone Number INTERFACE SYSTEM Refer to clinic/hospital department documented in this encounter Visit Diagnoses Diagnosis Chest pain, unspecified- Primary documented in this encounter Additional Health Concerns Infection Onset Date Last Indicated Resolved Time 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
--- OUTSIDE RECORDS SUMMARY | 2025-04-20 21:15 | XMS_ITS | Encounter Summary ---
Author Organization [facility] Address [address] [place] [address] Care Team Providers Care Study Specialist Name Role Phone Dara Tavera Primary Care Provider [phone] Encounter Details Date Type Department Care Team (Latest Contact Info) Description 02/26/2007 Outpatient Historical [facility] [address] [place] [address] AMBULANCE, [facility] Abdominal Pain, Unspecified Site (Primary Dx) Social History Tobacco Use Types Packs/Day Years Used Date Smoking Tobacco: Never Assessed Comments Unknown Sex and Gender Information Value Date Recorded Sex Assigned at Not on file Legal Sex Female 5:22 AM PANEL INSTALLER Gender Identity Not on file Sexual Orientation Not on file documented as of this encounter Plan of Treatment Not on file documented as of this encounter Visit Diagnoses Diagnosis Abdominal pain, unspecified site- Primary documented in this encounter Additional Health Concerns Infection Onset Date Last Indicated Resolved Time VRE Comment:Urine 10/30/13 Resolved 11/04/2013 11/04/2013 8 10:33 AM PANEL INSTALLER R/O COVID-19 12/25/2019 12/25/2019 12/26/2019 2:46 PM CDT R/O COVID-19 05/09/2020 05/09/2020 05/09/2020 12:1 7 PM PANEL INSTALLER documented as of this encounter Care Teams Study Specialist Relationship Specialty Start Date End Date Dara Tavera FNP [address] [place] [phone] PCP - General NURSE PRACTITIONER 10/13/18 documented as of this encounter
--- OUTSIDE RECORDS SUMMARY | 2025-04-20 21:15 | XMS_ITS | Encounter Summary ---
Author Organization [facility] Address [address] [place] [address] Care Team Providers Care Surveillance Operator Name Role Phone Dara Tavera AMANDEEP Primary Care Provider Encounter Details Date Type Department Care Team (Late st Contact Info) Description 04/27/2007 Emergency [facility] Emergency Department [address] [place] [address] Sammi Justice MD [address] [facility] [address] [place] [address] Abdominal Pain, Other Specified Site (Primary Dx) Social History Tobacco Use Types Packs/Day Years Used Date Smoking Tobacco: Never Assessed Comments Unknown Sex and Gender Information Value Date Recorded Sex Assigned at Not on file Legal Sex Female 5:22 AM CHESS INSTRUCTOR Gender Identity Not on file Sexual Orientation Not on file documented as of this encounter Plan of Treatment Not on file documented as of this encounter Procedures Procedure Name Priority Date/Time Associated Diagnosis Comments URINALYSIS W/REFLEX MICROSCOPIC Routine 04/27/2007 6:20 PM CHESS INSTRUCTOR CBC WITH DIFFERENTIAL Routine 04/27/2007 6:09 PM CHESS INSTRUCTOR COMPREHENSIVE METABOLIC PANEL Routine 04/27/2007 6:09 PM CHESS INSTRUCTOR documented in this encounter Results * URINALYSIS (04/27/2007 6:20 PM CHESS INSTRUCTOR) COLOR UA Yellow Straw INTERFACE SYSTEM CLARITY [...] No No INTERFACE SYSTEM 04/27/2007 6:20 PM CHESS INSTRUCTOR Smami Justice MD URINE ORDERABLES Edited Performing Organization Address [facility] Co de Phone Number INTERFACE SYSTEM Refer to clinic/hospital department * (ABNORMAL) COMPREHENSIVE METABOLIC PANEL (04/27/2007 6:09 PM CHESS INSTRUCTOR) GLUCOSE 108 70 - 110 mg/dL INTERFACE [...] 295 mOsm/Kg INTERFACE SYSTEM 04/27/2007 6:09 PM CHESS INSTRUCTOR Sammi Justice MD CHEMISTRY ORDERABLES Edited INTERFACE SYSTEM Refer to clinic/hospital department * (ABNORMAL) CBC WITH DIFFERENTIAL (04/27/2007 6:09 PM CHESS INSTRUCTOR) WBC 11.0 4.5 - 11.0 K/ul INTERFACE [...] 0.2 K/ul INTERFACE SYSTEM 04/27/2007 6:09 PM CHESS INSTRUCTOR us Sammi Justice MD HEMATOLOGY ORDERABLES Edite d INTERFACE SYSTEM Refer to clinic/hospital department documented in this encounter Visit Diagnoses Diagnosis Abdominal pain, other specified site- Primary documented in this encounter Additional Health Concerns Infection Onset Date Last Indicated Resolved Time VRE Comment:Urine 10/30/13 Resolved 11/04/2013 11/04/2013 8 10:33 AM CHESS INSTRUCTOR R/O COVID-19 12/25/2019 12/25/2019 12/26/2019 2:46 PM CDT R/O COVID-19 05/09/2020 05/09/2020 05/09/2020 12:1 7 PM CHESS INSTRUCTOR documented as of this encounter Care Teams Surveillance Operator Relationship Specialty Start Date End Date Dara Tavera FNP [address] [place] [address] PCP - General NURSE PRACTITIONER 10/13/18 documented as of this encounter
--- OUTSIDE RECORDS SUMMARY | 2025-04-20 21:15 | XMS_ITS | Encounter Summary ---
Author Organization [facility] Address [address] [place] [address] Care Team Providers Care Ignition Mechanic Name Role Phone Dara Tavera Primary Care Provider Encounter Details Date Type Department Care Team (Latest Contact Info) Description 12/03/2005 Outpatient Historical [facility] [address] [place] [address] AMBULANCE, [facility] Disruption of External Operation Wound, not Elsewhere Classified (Primary Dx) Social History Tobacco Use Types Packs/Day Years Used Date Smoking Tobacco: Never Assessed Comments Unknown Sex and Gender Information Value Date Recorded Sex Assigned at Not on file Legal Sex Female 5:22 AM CLIENT RELATIONSHIP CONSULTANT Gender Identity Not on file Sexual Orientation Not on file documented as of this encounter Plan of Treatment Not on file documented as of this encounter Visit Diagnoses Diagnosis Disruption of external operation (surgical) wound- Primary documented in this encounter Additional Health Concerns Infection Onset Date Last Indicated Resolved Time VRE Comment:Urine 10/30/13 Resolved 11/04/2013 11/04/2013 8 10:33 AM CLIENT RELATIONSHIP CONSULTANT R/O COVID-19 12/25/2019 12/25/2019 12/26/2019 2:46 PM CDT R/O COVID-19 05/09/2020 05/09/2020 05/09/2020 12:1 7 PM CLIENT RELATIONSHIP CONSULTANT documented as of this encounter Care Teams Ignition Mechanic Relationship Specialty Start Date End Date Dara Tavera FNP [address] [place] [phone] PCP - General NURSE PRACTITIONER 10/13/18 documented as of this encounter
--- OUTSIDE RECORDS SUMMARY | 2025-04-20 21:15 | XMS_ITS | Encounter Summary ---
Author Organization [facility] Address [address] [place] [address] Care Team Providers Care Violin Mechanic Name Role Phone Dara Tavera AMANDEEP Primary Care Provider Encounter Details Date Type Department Care Team (Late st Contact Info) Description 04/26/2007 Emergency [facility] Emergency Department [address] [place] [address] Kenney Simmons MD [address] [place] [address] Abdominal Pain, Other Specified Site (Primary Dx) Social History Tobacco Use Types Packs/Day Years Used Date Smoking Tobacco: Never Assessed Comments Unknown Sex and Gender Information Value Date Recorded Sex Assigned at Not on file Legal Sex Female 5:22 AM REGIONAL SAFETY MANAGER Gender Identity Not on file Sexual Orientation Not on file documented as of this encounter Plan of Treatment Not on file documented as of this encounter Procedures Procedure Name Priority Date/Time Associated Diagnosis Comments URINALYSIS W/REFLEX MICROSCOPIC Routine 04/26/2007 11:[address] URINARY CALCULI WO CONTRAST Routine 04/26/2007 11:22 PM REGIONAL SAFETY MANAGER documented in this encounter Results * (ABNORMAL) URINALYSIS (04/26/2007 11:48 PM REGIONAL SAFETY MANAGER) COLOR UA Yellow Straw INTERFACE SYSTEM [...] No INTERFACE SYSTEM 04/26/2007 11:4 8 PM REGIONAL SAFETY MANAGER us Physician Sj Ed URINE ORDERABLES Edited INTERFACE SYSTEM Refer to clinic/hospital department * CT RENAL COLIC WO CONT (04/26/2007 11:22 PM REGIONAL SAFETY MANAGER) Anatomical Region Laterality Modality Abdomen Other 04/26/2007 11:2 2 PM REGIONAL SAFETY MANAGER Narrative 04/26/2007 11:[address] Scan For Renal Colic: Date: 04/27/2007History: [...] degenerative changes in the spine. 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 Impression: No urinary [...] 10/30/13 Resolved 11/04/2013 11/04/2013 8 10:33 AM REGIONAL SAFETY MANAGER R/O COVID-19 12/25/2019 12/25/2019 12/26/2019 2:46 PM CDT R/O COVID-19 05/09/2020 05/09/2020 05/09/2020 12:1 7 PM REGIONAL SAFETY MANAGER documented as of this encounter Care Teams Violin Mechanic Relationship Specialty Start Date End Date Dara Tavera FNP [address] [place] [phone] PCP - General NURSE PRACTITIONER 10/13/18 documented as of this encounter
--- OUTSIDE RECORDS SUMMARY | 2025-04-20 21:15 | XMS_ITS | Encounter Summary ---
Author Organization [facility] Address [address] [place] [address] Care Team Providers Care Hone Operator Name Role Phone Dara Tavera AMANDEEP Primary Care Provider Encounter Details Date Type Department Care Team (Latest Contact Info) Description 05/11/2008 Outpatient Historical [facility] [address] [place] [address] AMBULANCE, [facility] Esophageal Reflux; Personal History of Allergy to [...] on file Legal Sex Female 5:22 AM TRADE EMBALMER Gender Identity Not on file Sexual Orientation [...] 10/30/13 Resolved 11/04/2013 11/04/2013 8 10:33 AM TRADE EMBALMER R/O COVID-19 12/25/2019 12/25/2019 12/26/2019 2:46 PM CDT R/O COVID-19 05/09/2020 05/09/2020 05/09/2020 12:1 7 PM TRADE EMBALMER documented as of this encounter Care Teams Hone Operator Relationship Specialty Start Date End Date Dara Tavera FNP [address] [place] [phone] PCP - General NURSE PRACTITIONER 10/13/18 documented as of this encounter
--- OUTSIDE RECORDS SUMMARY | 2025-04-20 21:15 | XMS_ITS | Encounter Summary ---
Author Organization [facility] Address [address] [place] [address] Care Team Providers Care Manager Treasury Name Role Phone Dara Tavera AMANDEEP Primary Care Provider Encounter Details Date Type Department Care Team (Latest Contact Info) Description 03/28/2008 Outpatient Historical [facility] [address] [place] [address] AMBULANCE, [facility] Unspecified Asthma; Unspecified Nonpsychotic Mental Disorder; Acquired [...] on file Legal Sex Female 5:22 AM DINING ROOM TABLES SET UP ATTENDANT Gender Identity Not on file Sexual [...] 10/30/13 Resolved 11/04/2013 11/04/2013 8 10:33 AM DINING ROOM TABLES SET UP ATTENDANT R/O COVID-19 12/25/2019 12/25/2019 12/26/2019 2:46 PM CDT R/O COVID-05/09/2020 05/09/2020 05/09/2020 12:1 7 PM DINING ROOM TABLES SET UP ATTENDANT documented as of this encounter Care Teams Manager Treasury Relationship Specialty Start Date End Date Dara Tavera FNP [address] [place] [phone] PCP - General NURSE PRACTITIONER 10/13/18 documented as of this encounter
--- OUTSIDE RECORDS SUMMARY | 2025-04-20 21:15 | XMS_ITS | Encounter Summary ---
Author Organization [facility] Address [address] [place] [address] Care Team Providers Care Sustainable Communities Designer Name Role Phone Dara Tavera AMANDEEP Primary Care Provider [phone] Encounter Details Date Type Department Care Team (Late st Contact Info) Description 04/29/2007 Emergency [facility] Emergency Department [address] [place] [address] Temo Nagel MD [address] [place] [address] Abdominal Pain, Other Specified Site (Primary Dx) Social History Tobacco Use Types Packs/Day Years Used Date Smoking Tobacco: Never Assessed Comments Unknown Sex and Gender Information Value Date Recorded Sex Assigned at Not on file Legal Sex Female 5:22 AM STUDENT FINANCIAL AID MANAGER Gender Identity Not on file Sexual Orientation Not on file documented as of this encounter Plan of Treatment Not on file documented as of this encounter Visit Diagnoses Diagnosis Abdominal pain, other specified site- Primary documented in this encounter Additional Health Concerns Infection Onset Date Last Indicated Resolved Time VRE Comment:Urine 10/30/13 Resolved 11/04/2013 11/04/2013 8 10:33 AM STUDENT FINANCIAL AID MANAGER R/O COVID-19 12/25/2019 12/25/2019 12/26/2019 2:46 PM CDT R/O COVID-19 05/09/2020 05/09/2020 05/09/2020 12:1 7 PM STUDENT FINANCIAL AID MANAGER documented as of this encounter Care Teams Sustainable Communities Designer Relationship Specialty Start Date End Date Dara Tavera FNP [address] [place] [phone] PCP - General NURSE PRACTITIONER 10/13/18 documented as of this encounter
--- OUTSIDE RECORDS SUMMARY | 2025-04-20 21:15 | XMS_ITS | Encounter Summary ---
Author Organization [facility] Address [address] [place] [address] Care Team Providers Care Internal Revenue Agent Name Role Phone Dara Tavera Primary Care Provider Encounter Details Date Type Department Care Team (Latest Contact Info) Description 12/16/2005 Outpatient Historical [facility] Ambulance [address] [place] [address] AMBULANCE, [facility] Unspecified Nonpsychotic Mental Disorder (Primary Dx) Social History Tobacco Use Types Packs/Day Years Used Date Smoking Tobacco: Never Assessed Comments Unknown Sex and Gender Information Value Date Recorded Sex Assigned at Not on file Legal Sex Female 5:22 AM CLOSING SUPERVISOR Gender Identity Not on file Sexual Orientation Not on file documented as of this encounter Plan of Treatment Not on file documented as of this encounter Visit Diagnoses Diagnosis Unspecified nonpsychotic mental disorder- Primary documented in this encounter Additional Health Concerns Infection Onset Date Last Indicated Resolved Time VRE Comment:Urine 10/30/13 Resolved 11/04/2013 11/04/2013 8 10:33 AM CLOSING SUPERVISOR R/O COVID-19 12/25/2019 12/25/2019 12/26/2019 2:46 PM CDT R/O COVID-19 05/09/2020 05/09/2020 05/09/2020 12:1 7 PM CLOSING SUPERVISOR documented as of this encounter Care Teams Internal Revenue Agent Relationship Specialty Start Date End Date Dara Tavera FNP [address] [place] [phone] PCP - General NURSE PRACTITIONER 10/13/18 documented as of this encounter
--- OUTSIDE RECORDS SUMMARY | 2025-04-20 21:15 | XMS_ITS | Encounter Summary ---
Author Organization [facility] Address [address] [place] [address] Care Team Providers Care Production Control Planner Name Role Phone Dara Tavera AMANDEEP Primary Care Provider Encounter Details Date Type Department Care Team (Late st Contact Info) Description 04/13/2007 Emergency [facility] Emergency Department [address] [place] [address] Flex Ricks MD NO ADDRESS ON FILE Other and Unspecified Noninfectious Gastroenteritis and Colitis (Primary Dx) Social History Tobacco Use Types Packs/Day Years Used Date Smoking Tobacco: Never Assessed Comments Unknown Sex and Gender Information Value Date Recorded Sex Assigned at Not on file Legal Sex Female 5:22 AM STRIPPER APPRENTICE Gender Identity Not on file Sexual [...] 10/30/13 Resolved 11/04/2013 11/04/2013 8 10:33 AM STRIPPER APPRENTICE R/O COVID-19 12/25/2019 12/25/2019 12/26/2019 2:46 PM CDT R/O COVID-19 05/09/2020 05/09/2020 05/09/2020 12:1 7 PM STRIPPER APPRENTICE documented as of this encounter Care Teams Production Control Planner Relationship Specialty Start Date End Date Dara Tavera FNP [address] [place] [phone] PCP - General NURSE PRACTITIONER 10/13/18 documented as of this encounter
--- OUTSIDE RECORDS SUMMARY | 2025-04-20 21:15 | XMS_ITS | Encounter Summary ---
Author Organization [facility] Address [address] [place] [address] Care Team Providers Care Metal Annealer Name Role Phone Dara Tavera [facility] Primary Care Provider [phone] Encounter Details Date Type Department Care Team (Latest Contact Info) Description 05/10/2008 Outpatient Historical [facility] [address] [place] [address] AMBULANCE, [facility] Other Malaise and Fatigue; Other Speech Disturbance; Unspecified Abnormal Pupillary Function; Esophageal Reflux; Encounter for Long-Term (Current) Use of Other Medications Social History Tobacco Use Types Packs/Day Years Used Date Smoking Tobacco: Never Assessed Comments Unknown Sex and Gender Information Value Date Recorded Sex Assigned at Not on file Legal Sex Female 5:22 AM KNITTING TEACHER Gender Identity Not on file Sexual [...] 10/30/13 Resolved 11/04/2013 11/04/2013 8 10:33 AM KNITTING TEACHER R/O COVID-19 12/25/2019 12/25/2019 12/26/2019 2:46 PM CDT R/O COVID-19 05/09/2020 05/09/2020 05/09/2020 12:1 7 PM KNITTING TEACHER documented as of this encounter Care Teams Metal Annealer Relationship Specialty Start Date End Date Dara Tavera FNP [address] [place] [phone] PCP - General NURSE PRACTITIONER 10/13/18 documented as of this encounter
--- OUTSIDE RECORDS SUMMARY | 2025-04-20 21:15 | XMS_ITS | Encounter Summary ---
Author Organization [facility] Address [address] [place] [address] Care Team Providers Care Music Engraver Name Role Phone Dara Tavera PM HEAD COOK Primary Care Provider Encounter Details Date Type Department Care Team (Late st Contact Info) Description 02/13/2007 Outpatient Historical [facility] Alisa Ross MD [address] [place] [id number] Social History Tobacco Use Types Packs/Day Years Used Date Smoking Tobacco: Never Assessed Comments Unknown Sex and Gender Information Value Date Recorded Sex Assigned at Not on file Legal Sex Female 5:22 AM ORGANIC PREPARATION TECHNICIAN Gender Identity Not on file Sexual [...] Corral D.O. Date Signed: 02/13/07 SDM Ronnell Rsos MD MR ORDERABLES Final Result documented in this encounter Visit Diagnoses Not on filedocumented in this encounter Additional Health Concerns Infection Onset Date Last Indicated Resolved Time VRE Comment:Urine 10/30/13 Resolved 11/04/2013 11/04/2013 8 10:33 AM ORGANIC PREPARATION TECHNICIAN R/O COVID-19 12/25/2019 12/25/2019 12/26/2019 2:46 PM CDT R/O COVID-19 05/09/2020 05/09/2020 05/09/2020 12:1 7 PM ORGANIC PREPARATION TECHNICIAN documented as of this encounter Care Teams Music Engraver Relationship Specialty Start Date End Date Dara Tavera FNP [address] [place] [phone] PCP - General NURSE PRACTITIONER 10/13/18 documented as of this encounter
--- OUTSIDE RECORDS SUMMARY | 2025-04-20 21:15 | XMS_ITS | Encounter Summary ---
Author Organization [facility] Address [address] [place] [address] Care Team Providers Care Desktop Support Specialist Name Role Phone Dara Tavera AMANDEEP Primary Care Provider Encounter Details Date Type Department Care Team (Latest Contact Info) Description 04/20/2008 Outpatient Historical [facility] [address] [place] [address] AMBULANCE, [facility] Other Specified Cardiac Dysrhythmias; Unspecified Nonpsychotic Mental [...] file Legal Sex Female 5:22 AM SUPERVISOR INSECTICIDE Gender Identity Not on file Sexual Orientation [...] Resolved 11/04/2013 11/04/2013 8 10:33 AM SUPERVISOR INSECTICIDE R/O COVID-19 12/25/2019 12/25/2019 12/26/2019 2:46 PM CDT R/O COVID-05/09/2020 05/09/2020 05/09/2020 12:1 7 PM SUPERVISOR INSECTICIDE documented as of this encounter Care Teams Desktop Support Specialist Relationship Specialty Start Date End Date Dara Tavera FNP [address] [place] [phone] PCP - General NURSE PRACTITIONER 10/13/18 documented as of this encounter
--- OUTSIDE RECORDS SUMMARY | 2025-04-20 21:15 | XMS_ITS | Encounter Summary ---
Author Organization [facility] Address [address] [place] [address] Care Team Providers Care Drugless Physician Name Role Phone Dara Tavera Primary Care Provider [phone] Encounter Details Date Type Department Care Team (Latest Contact Info) Description 02/22/2006 Outpatient Historical [facility] [address] [place] [address] [facility] Cervicalgia (Primary Dx) Social History Tobacco Use Types Packs/Day Years Used Date Smoking Tobacco: Never Assessed Comments Unknown Sex and Gender Information Value Date Recorded Sex Assigned at Not on file Legal Sex Female 5:22 AM MANAGER LANDSCAPE Gender Identity Not on file Sexual Orientation Not on file documented as of this encounter Plan of Treatment Not on file documented as of this encounter Visit Diagnoses Diagnosis Cervicalgia- Primary documented in this encounter Additional Health Concerns Infection Onset Date Last Indicated Resolved Time VRE Comment:Urine 10/30/13 Resolved 11/04/2013 11/04/2013 8 10:33 AM MANAGER LANDSCAPE R/O COVID-19 12/25/2019 12/25/2019 12/26/2019 2:46 PM CDT R/O COVID-19 05/09/2020 05/09/2020 05/09/2020 12:1 7 PM MANAGER LANDSCAPE documented as of this encounter Care Teams Drugless Physician Relationship Specialty Start Date End Date Dara Tavera FNP [address] [place] [phone] PCP - General NURSE PRACTITIONER 10/13/18 documented as of this encounter
--- OUTSIDE RECORDS SUMMARY | 2025-04-20 21:16 | XMS_ITS | Encounter Summary ---
Author Organization [facility] Address [address] [place] [address] Care Team Providers Care Finish Saw Operator Name Role Phone Dara Tavera Primary Care Provider Encounter Details Date Type Department Care Team (Latest Contact Info) Description 04/08/2006 Outpatient [facility] [address] [place] [address] AMBULANCE, [facility] Unspecified Epilepsy without Mention of Intractable Epilepsy (CMS/HCC) (Primary Dx) Social History Tobacco Use Types Packs/Day Years Used Date Smoking Tobacco: Never Assessed Comments Unknown Sex and Gender Information Value Date Recorded Sex Assigned at Not on file Legal Sex Female 5:22 AM SURGICAL FIRST ASSISTANT Gender Identity Not on file Sexual [...] 10/30/13 Resolved 11/04/2013 11/04/2013 8 10:33 AM SURGICAL FIRST ASSISTANT R/O COVID-19 12/25/2019 12/25/2019 12/26/2019 2:46 PM CDT R/O COVID-19 05/09/2020 05/09/2020 05/09/2020 12:1 7 PM SURGICAL FIRST ASSISTANT documented as of this encounter Care Teams Finish Saw Operator Relationship Specialty Start Date End Date Dara Tavera FNP [address] [place] [address] PCP - General NURSE PRACTITIONER 10/13/18 documented as of this encounter
--- OUTSIDE RECORDS SUMMARY | 2025-04-20 21:16 | XMS_ITS | Encounter Summary ---
Author Organization [facility] Address [address] [place] [address] Care Team Providers Care Industrial Cleaning Technician Name Role Phone Dara Tavera Primary Care Provider [phone] Encounter Details Date Type Department Care Team (Latest Contact Info) Description 12/18/2006 Outpatient Historical [facility] [address] [place] [address] AMBULANCE, [facility] Other Chest Pain (Primary Dx) Social History Tobacco Use Types Packs/Day Years Used Date Smoking Tobacco: Never Assessed Comments Unknown Sex and Gender Information Value Date Recorded Sex Assigned at Not on file Legal Sex Female 5:22 AM HOSPITAL ADMISSIONS OFFICER Gender Identity Not on file Sexual Orientation Not on file documented as of this encounter Plan of Treatment Not on file documented as of this encounter Visit Diagnoses Diagnosis Other chest pain- Primary documented in this encounter Additional Health Concerns Infection Onset Date Last Indicated 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
--- OUTSIDE RECORDS SUMMARY | 2025-04-20 21:16 | XMS_ITS | Encounter Summary ---
Author Organization [facility] Address [address] [place] [address] Care Team Providers Care Fitter Tacker Name Role Phone Dara Tavera Primary Care Provider [phone] Encounter Details Date Type Department Care Team (Late st Contact Info) Description 11/05/2006 Outpatient Historical [facility] [address] 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
--- OUTSIDE RECORDS SUMMARY | 2025-04-20 21:16 | XMS_ITS | Clinical Summary ---
Author Organization [facility] Address [address] [place] [address] Care Team Providers Care Control And Recovery Special Tactics Name Role Phone Sally Dong MD Primary Care Provider [phone] Allergies Active Allergy Reactions Criticality Noted Date Comments Adhesive Rash Low 02/12/2009 Codeine Nausea and Vomiting Low 02/12/2009 Duloxetine Other (See Comments) 02/24/2015 Fentanyl Hives High 11/07/2019 Fluoxetine Unknown 10/20/2018 Gabapentin Unknown,Hallucination Low 02/12/2009 Haloperidol Unknown 01/04/2022 Tardive dyskinesia Ketorolac Tromethamine Other (See Comments) Low Adverse drug reaction Aline Unknown 02/12/2009 Other reaction(s): shakey Metoclopramide Hcl [...] for Nausea/Emesis. Active naloxone (NARCAN) 4 mg/spray [place], Non-Aerosol EMERGENCY USE ONLY: Administer 1 spray [...] times daily as needed for Spasm. Active Active Problems Problem Noted Date Diagnosed [...] Hematochezia 07/07/2009 10/26/2012 Personal history of MRSA (ia thicillin resistant Staphylococcus aureus) 06/27/2009 018 Overview (10/14/2020): Under the arm abscess ~ 2014 Fever and chills 02/12/2009 10/26/2012 Hypoxemia 02/12/2009 04/06/2014 Encounters Date Type Department Care Team Description 04/19/2025 8:27 PM CDT - 04/19/2025 9:59 PM CDT Emergency [facility] Emergency Medicine [address] [place] [phone] Tommy Matthews MD Sprain of right shoulder, unspecified shoulder sprain type, initial encounter (Primary Dx) Discharge Disposition: Home or Self Care 04/19/2025 Travel 04/10/2025 1:07 PM CDT - 04/10/2025 11:59 PM CDT Hospital Encounter [facility] [address] [place] [phone] Dara Tavera FNP Discharge Disposition: Home or Self Care 04/10/2025 Orders Only [facility] Admitting [address] [place] [phone] Dara Tavera, PRODUCT DEVELOPER Low back pain with sciatica, sciatica laterality unspecified, unspecified back pain laterality, unspecified chronicity (Primary Dx) 04/07/2025 10:00 PM CDT - 04/08/2025 12:56 AM CDT Emergency [facility] Emergency Medicine [address] [place] [address] Tommy Matthews MD Right flank pain (Primary Dx) Discharge Disposition: Home or Self Care 04/07/2025 Travel 03/23/2025 12:30 AM CDT - 03/23/2025 11:59 PM CDT Hospital Encounter [facility] [address] [place] [phone] Ambulance, [facility] Discharge Disposition: [facility] 03/18/2025 8:36 AM CDT - 03/18/2025 10:03 AM CDT [facility] Emergency Medicine [address] [place] [phone] Neck pain (Primary Dx) Discharge Disposition: Home or Self Care 03/08/2025 5:56 PM CDT - 03/08/2025 9:25 PM CDT [facility] Emergency Medicine [address] [place] [address] Anand Bower DO Flank pain (Primary Dx) Discharge Disposition: Home or Self Care 03/08/2025 Travel 03/02/2025 1:05 PM CDT - 03/02/2025 11:59 PM CDT Hospital Encounter [facility] [address] [place] [address] Ambulance, [facility] Discharge Disposition: [facility] 02/20/2025 8:40 PM CDT - 02/20/2025 10:04 PM CDT [facility] Emergency Medicine [address] [place] [address] Tommy Matthews MD Chronic neck pain (Primary Dx) Discharge Disposition: Home or Self Care 02/20/2025 Travel 02/15/2025 4:28 PM CDT - 02/15/2025 5:10 PM CDT Emergency [facility] Emergency Medicine [address] [place] [phone] Neck muscle spasm (Primary Dx) Discharge Disposition: Home or Self Care 02/11/2025 10:49 AM CDT - 02/11/2025 11:59 PM CDT Hospital Encounter [facility] [address] [place] [address] Dara Tavera, PRODUCT DEVELOPER Discharge Disposition: Home or Self Care 02/11/2025 Orders Only [facility] Admitting [address] [place] [phone] Dara Tavera, PRODUCT DEVELOPER Cervicalgia (Primary Dx) 02/09/2025 9:24 AM CDT - 02/09/2025 10:00 AM CDT Emergency [facility] Emergency Medicine [address] [place] [address] Tommy Matthews MD Cervicalgia (Primary Dx) Discharge Disposition: Home or Self Care 02/09/2025 - 02/09/2025 11:59 PM CDT Hospital Encounter [facility] [address] [place] [address] Ambulance, [facility] Discharge Disposition: [facility] 02/09/2025 Travel 02/01/2025 5:38 PM CDT - 02/01/2025 7:27 PM CDT Emergency [facility] Emergency Medicine [address] [place] [address] Tommy Matthews MD Abdominal pain, unspecified abdominal location (Primary Dx); Chest pain, unspecified type Discharge Disposition: Home or Self Care 02/01/2025 - 02/01/2025 11:59 PM CDT Hospital Encounter [facility] [address] [place] [address] Ambulance, [facility] Discharge Disposition: [facility] 02/01/2025 Travel 01/19/2025 6:21 PM CDT - 01/19/2025 7:53 PM CDT Emergency [facility] Emergency Medicine [address] [place] [address] Sanju Montero DO Sindlinger, Timothy S, MD Flank pain (Primary Dx); Chronic pain syndrome Discharge Disposition: Home or Self Care from [...] asked 05/05/2019 How often do you attend congregational or jew serv ices? Not asked 05/05/2019 Do you belong to any clubs o r organizations such as congregational groups, unions, fraternal or athletic groups, or [...] worry about transportation for future doctor visits, moss picker medication, etc.? No 2024 Housing Stability [...] PM CDT Legal Sex Female 2:06 AM HYDROGEN PLANT OPERATIONS MANAGER Gender Identity Female 03/25/2024 4:14 PM CDT [...] Mass Index 30.73 04/19/2025 8:34 PM CDT Plan of Treatment Health Maintenance [...] Cancer Screening 01/12/2022 INFLUENZA VACCINE (#1) 2025 , 02/19/2014, 02/17/2013, Additional history exists COVID-19 Vaccine Completed 05/08/2024, 09/24/2020 Procedures Procedure Name Priority Date/Time Associated Diagnosis Comments XR SHOULDER 2+ VW RIGHT Stat 04/19/2025 8:56 PM CDT XR LUMBAR SPINE 2 OR 3 VW Routine 04/10/2025 1:13 PM CDT Low back pain with sciatica, sciatica laterality unspecified, unspecified back pain laterality, unspecified chronicity LIPASE Stat 04/07/2025 11:58 PM CDT COMPREHENSIVE METABOLIC PANEL Stat 04/07/2025 11:58 PM CDT CBC WITH DIFFERENTIAL Stat 04/07/2025 11:[address] ABDOMEN PELVIS WO CONTRAST Stat 04/07/2025 11:42 PM CDT URINALYSIS MICROSCOPY ONLY Stat 04/07/2025 9:30 PM CDT URINALYSIS W/REFLEX MICROSCOPIC Stat 04/07/2025 9:30 PM CDT XR ABDOMEN 1 VW Stat 03/08/2025 8:06 [...] CDT LIPASE Stat 01/19/2025 6:37 PM CDT HEMOGLOBIN A1C Routine 06/17/2018 7:12 AM HYDROGEN PLANT OPERATIONS MANAGER from Last 3 Months or Most Recently Relevant to Health Maintenance Results * XR SHOULDER 2+ VW RIGHT [...] DIAGNOSTIC IMAGING ORDER KAYLEE Final Result * XR LUMBAR SPINE 2 [...] degenerative changes and scoliosis. Narrative Procedure Note Papito Farias MD - 04/11/2025 IMPRESSION: Please see [...] thoracic spine degenerative changes and scoliosis. Dara Tavera PRODUCT DEVELOPER DIAGNOSTIC IMAGING ORDERABL ES Final Result * (ABNORMAL) CBC WITH DIFFERENTIAL (04/07/2025 11:58 PM CDT) Only the most recent of4 resultswithin the time period is included. WBC 16.1(H) 4.0 - 10.0 K/uL 04/08/2025 12:26 AM [facility] RBC 3.99 3.93 - 5.22 M/uL 04/08/2025 12:26 AM [facility] HEMOGLOBIN 13.3 11.2 - 15.7 g/dL 04/08/2025 12:26 AM [facility] HEMATOCRIT 38.3 34.1 - 44.9 % 04/08/2025 12:26 AM [facility] MCV 96.0(H) 79.4 - 94.8 fL 04/08/2025 12:26 AM [facility] MCH 33.3(H) 25.6 - 32.2 pg 04/08/2025 12:26 AM [facility] MCHC 34.7 32.2 - 35.5 g/dL 04/08/2025 12:26 AM [facility] RDW 12.7 11.0 - 14.5 % 04/08/2025 12:26 AM [facility] RDW-STDEV 44.9 36.9 - 56.9 fL 04/08/2025 12:26 AM [facility] PLATELETS 234 163 - 337 K/uL 04/08/2025 12:26 AM [facility] MPV 9.8(L) 10.0 - 14.8 fL 04/08/2025 12:26 AM [facility] NEUTROPHILS 75(H) 34 - 71 % 04/08/2025 12:26 AM [facility] LYMPHOCYTES 16(L) 19 - 52 % 04/08/2025 12:26 AM [facility] MONOCYTES 6 5 - 13 % 04/08/2025 12:26 AM [facility] EOSINOPHILS 2 1 - 6 % 04/08/2025 12:26 AM [facility] BASOPHILS 1 0 - 1 % 04/08/2025 12:26 AM [facility] IMMATURE GRANULOCYTES 0 % 04/08/2025 12:26 AM [facility] NEUTROPHIL ABSOLUTE 12.05(H) 1.56 - 6.13 K/uL 04/08/2025 12:26 AM [facility] LYMPHOCYTE ABSOLUTE 2.57 1.20 - 3.40 K/uL 04/08/2025 12:26 AM [facility] MONOCYTE ABSOLUTE 0.99(H) 0.24 - 0.36 K/uL 04/08/2025 12:26 AM [facility] EOSINOPHIL ABSOLUTE 0.27 0.04 - 0.36 K/uL 04/08/2025 12:26 AM [facility] BASOPHILS ABSOLUTE 0.12(H) 0.01 - 0.08 K/uL 04/08/2025 12:26 AM [facility] IMMATURE GRANULOCYTES ABSOLUTE 0.05 K/uL 04/08/2025 12:26 AM [facility] Blood BLOOD SPECIMEN / Unknown Collection / Unknown 04/07/2025 11:58 PM CDT 04/08/2025 12:22 AM CDT Tommy Matthews MD HEMATOLOGY ORDERABLES nal Result [facility] # [id number] [address] [place] [address] * LIPASE (04/07/2025 11:58 PM CDT) Only the most recent of3 resultswithin the time period is included. LIPASE 20 13 - 60 U/L 04/08/2025 12:42 AM T [facility] Blood BLOOD SPECIMEN / Unknown Collection / Unknown 04/07/2025 11:58 PM CDT 04/08/2025 12:22 AM CDT Tommy Matthews MD CHEMISTRY ORDERABLES Fin al Result [facility] CLIA # [id number] [address] [place] [id number] * (ABNORMAL) COMPREHENSIVE METABOLIC PANEL (04/07/2025 11:58 PM CDT) Only the most recent of4 resultswithin the time period is included. SODIUM 134(L) 136 - 145 mmol/L 04/08/2025 12:42 AM [facility] POTASSIUM 3.7 3.5 - 5.1 mmol/L 04/08/2025 12:42 AM [facility] CHLORIDE 99 98 - 107 mmol/L 04/08/2025 12:42 AM [facility] CO2 24 22 - 29 mmol/L 04/08/2025 12:42 AM [facility] CALCIUM 9.9 8.6 - 10.0 mg/dL 04/08/2025 12:42 AM [facility] BUN 14 6 - 20 mg/dL 04/08/2025 12:42 AM [facility] CREATININE 0.97(H) 0.51 - 0.95 mg/dL 04/08/2025 12:42 AM [facility] GLUCOSE 100(H) 74 - 99 mg/dL 04/08/2025 12:42 AM [facility] TOTAL PROTEIN 6.7 6.6 - 8.7 g/dL 04/08/2025 12:42 AM [facility] ALBUMIN 4.1 3.5 - 5.2 g/dL 04/08/2025 12:42 AM [facility] BILIRUBIN TOTAL 0.2 0.0 - 1.2 mg/dL 04/08/2025 12:42 AM [facility] ALKALINE PHOSPHATASE 121(H) 35 - 104 U/L 04/08/2025 12:42 AM [facility] AST 16 0 - 35 U/L 04/08/2025 12:42 AM [facility] ALT 10 0 - 35 U/L 04/08/2025 12:42 AM CDT [facility] GFR >60 >=60 mL/min/1.7 3 sq meter 04/08/2025 12:42 AM CDT [facility] Comment:eGFR calculated with 2020 CKD-EPI equation. Vegetarian diet, extremely high or low muscle mass, and may affect results. Cystatin C with Glomerular Filtration Rate is a suitable alternative for these patients. ANION GAP 11 5 - 20 mmol/L 04/08/2025 12:42 AM CDT [facility] Blood BLOOD SPECIMEN / Unknown Collection / Unknown 04/07/2025 11:58 PM CDT 04/08/2025 12:22 AM CDT us Tommy Matthews MD CHEMISTRY ORDERABLES Fin al Result [facility] CLIA # [id number] [address] [place] [address] * CT ABDOMEN PELVIS WO CONTRAST (04/07/2025 11:42 PM CDT) Only the most recent of2 resultswithin the time period is included. Anatomical Region Laterality Modality Abdomen Computed Tomogra phy 04/07/2025 11:2 0 PM CDT Impressions 04/08/2025 12:35 AM CDT IMPRESSION: 1. No acute process. Nonobstructing calculus is again seen within the lower pole of the right kidney. MACRO: None Narrative 04/08/2025 12:35 AM CDT EXAMINATION: CT ABDOMEN PELVIS WO CONTRAST CLINICAL HISTORY: ASSOCIATED DIAGNOSIS: Flank pain, stone disease suspected ORDERING PROVIDER: TOMMY MATTHEWS TECHNOLOGISTS NOTE: COMPARISON: January 2025 TECHNIQUE: Contiguous axial images were obtained through the abdomen and pelvis from the level of the diaphragmatic domes through the pubic symphysis. MPR sagittal and coronal reconstructions were obtained from the axial data. FINDINGS: Included images of the lower thorax: No focal lung consolidation or pleural effusion. Hepatobiliary: Unremarkable liver without biliary dilation evident. The gallbladder is surgically absent. Pancreas: Unremarkable Spleen: Unremarkable Adrenal Glands: Unremarkable Kidneys, ureters, and bladder: Nonobstructing calculus is again seen within the lower pole of the right kidney. Hydroureteronephrosis. Abdominal and pelvic vasculature: Atherosclerotic wall calcifications are present without aneurysm. GI tract: No evidence of obstruction. The appendix is within normal limits. Peritoneum and retroperitoneum: No free fluid or free air. Lymph Nodes: No lymphadenopathy. Uterus and adnexa: Status post hysterectomy. Visualized musculoskeletal structures: No acute fracture or destructive osseous lesion. Procedure Note Rizwan Raymond MD - 04/08/2025 EXAMINATION: CT ABDOMEN PELVIS WO CONTRAST CLINICAL HISTORY: ASSOCIATED DIAGNOSIS: Flank pain, stone disease suspected ORDERING PROVIDER: TOMMY MATTHEWS TECHNOLOGISTS NOTE: COMPARISON: January 2025 TECHNIQUE: Contiguous axial images were obtained through the abdomen and pelvis from the level of the diaphragmatic domes through the pubic symphysis. MPR sagittal and coronal reconstructions were obtained from the axial data. FINDINGS: Included images of the lower thorax: No focal lung consolidation or pleural effusion. Hepatobiliary: Unremarkable liver without biliary dilation evident. The gallbladder is surgically absent. Pancreas: Unremarkable Spleen: Unremarkable Adrenal Glands: Unremarkable Kidneys, ureters, and bladder: Nonobstructing calculus is again seen within the lower pole of the right kidney. Hydroureteronephrosis. Abdominal and pelvic vasculature: Atherosclerotic wall calcifications are present without aneurysm. GI tract: No evidence of obstruction. The appendix is within normal limits. Peritoneum and retroperitoneum: No free fluid or free air. Lymph Nodes: No lymphadenopathy. Uterus and adnexa: Status post hysterectomy. Visualized musculoskeletal structures: No acute fracture or destructive osseous lesion. IMPRESSION: 1. No acute process. Nonobstructing calculus is again seen within the lower pole of the right kidney. MACRO: None us Tommy Matthews MD CT ORDERABLES Final Re sult * URINALYSIS MICROSCOPY ONLY (04/07/2025 9:30 PM CDT) WBC UA 0-2 0 - 2 /hpf 04/07/2025 9:37 PM CDT [facility] RBC UA 0-2 0 - 2 /hpf 04/07/2025 9:37 PM CDT [facility] BACTERIA UA Negative Negative /hpf 04/07/2025 9:37 PM CDT [facility] EPITHELIAL CELLS, URINE 0-5 0 - 5 /hpf 04/07/2025 9:37 PM CDT [facility] Urine URINE SPECIMEN OBTAINED BY CLEAN CATCH PROCEDURE / Unknown Collection / Unknown 04/07/2025 9:30 PM CDT 04/07/2025 9:34 PM CDT us Tommy Matthews MD URINE ORDERABLES Final R esult [facility] CLIA # [id number] [address] [place] [address] * (ABNORMAL) URINALYSIS WITH REFLEX MICROSCOPIC (04/07/2025 9:30 PM CDT) Only the most recent of2 resultswithin the time period is included. COLOR UA Yellow Pale to Dark Yellow 04/07/2025 9:37 PM CDT [facility] CLARITY UA Clear Clear 04/07/2025 9:37 PM T [facility] SPECIFIC GRAVITY UA <=1.005 1.003 - 1.035 04/07/2025 9:37 PM T [facility] PH UA 6.0 5.0 - 8.0 04/07/2025 9:37 PM [facility] LEUKOCYTE ESTERASE UA 1+(A) Negative 04/07/2025 9:37 PM T [facility] NITRITE UA Negative Negative 04/07/2025 9:37 PM CDT [facility] PROTEIN UA Negative Negative 04/07/2025 9:37 PM T [facility] GLUCOSE UA Negative Negative 04/07/2025 9:37 PM CDT [facility] KETONES UA Negative Negative 04/07/2025 9:37 PM T [facility] UROBILINOGEN UA 0.2 <2.0 mg/dL 9:37 PM T [facility] BILIRUBIN UA Negative Negative 04/07/2025 9:37 PM CDT [facility] BLOOD UA Negative Negative 04/07/2025 9:37 PM CDT [facility] Urine URINE SPECIMEN OBTAINED BY CLEAN CATCH PROCEDURE / Unknown Collection / Unknown 04/07/2025 9:30 PM CDT 04/07/2025 9:34 PM CDT us Tommy Matthews MD URINE ORDERABLES Final R esult [facility] CLIA # [id number] [address] [place] [address] * XR ABDOMEN 1 VW (03/08/2025 8:06 [...] burden. No renal calculi identified. MACRO: None Papito Leon MD DIAGNOSTIC IMAGING OR DERABLES Final Result * (ABNORMAL) DRUG SCREEN, URINE (03/08/2025 6:03 PM CDT) CANNABINOIDS QUAL, URINE Negative Negative 03/08/2025 6:33 PM CDT [facility] PCP QUAL, URINE Negative Negative 6:33 PM CDT [facility] COCAINE QUAL URINE Negative Negative 2024 6:33 PM CDT [facility] METHAMPHETAMINE QUAL, URINE Negative Negative 03/08/2025 6:33 PM CDT [facility] OPIATE QUAL, URINE Presumptive Positive(A) Negative 03/08/2025 6:33 PM CDT [facility] AMPHETAMINE QUAL, URINE Negative Negative 03/08/2025 6:33 PM CDT [facility] BENZODIAZEPINE QUAL, URINE Presumptive Positive(A) Negative 03/08/2025 6:33 PM CDT [facility] TRICYCLICS QUAL, URINE Presumptive Positive(A) Negative 03/08/2025 6:33 PM CDT [facility] METHADONE QUAL, URINE Negative Negative 03/08/2025 6:33 PM CDT [facility] BARBITURATE QUAL, URINE Negative Negative 03/08/2025 6:33 PM CDT [facility] OXYCODONE QUAL, URINE Negative Negative 03/08/2025 6:33 PM T [facility] Urine URINE SPECIMEN OBTAINED BY CLEAN CATCH PROCEDURE / Unknown Collection / Unknown 03/08/2025 6:03 PM CDT 03/08/2025 6:17 PM CDT Narrative [facility] - 03/08/2025 6:33 PM CDT This test [...] Tricyclic Antidepressants 300 ng/mL us Anand Bower URINE ORDERABLES [id number] [address] [address] * XR CERVICAL SPINE 2 OR 3 [...] is identified. Impression: 1. As above. us aDra Tavera PRODUCT DEVELOPER DIAGNOSTIC IMAGING ORDERABL ES Final Result * [...] 6 <=10 ng/L 02/01/2025 6:42 PM CDT [facility] Blood Venipuncture / Unknown 02/01/2025 5:53 PM CDT 02/01/2025 6:24 PM CDT Narrative [facility] - 02/01/2025 6:42 PM CDT Troponin Detectable but normal range. Tommy Matthews MD CHEMISTRY ORDERABLES Fin al Result [facility] CLIA # [id number] [address] [place] [address] * (ABNORMAL) BRAIN NATRIURETIC PEPTIDE, BNP OR PROBNP (02/01/2025 5:53 PM CDT) PROBNP, N TERMINAL 260(H) 0 - 125 pg/mL 02/01/2025 6:42 PM CDT [facility] Comment: INTERPRETIVE COMMENT based on diagnosis: [...] ORDERABLES Fin al Result Performing Organization Address City/[facility]/ZIP Co de Phone Number [facility] CLIA # [id number] [address] [place] [address] * MANUAL DIFFERENTIAL (01/19/2025 6:37 PM CDT) [facility] PLATELET EST. Consistent w Count 01/19/2025 7:01 PM CDT [facility] RBC MORPHOLOGY Normal 01/19/2025 7:01 PM CDT [facility] Blood Venipuncture / Unknown 01/19/2025 6:37 PM CDT 01/19/2025 6:48 PM CDT us Sanju Montero DO HEMATOLOGY ORDERABLES COM Fin al Result Performing Organization Address City/[facility] Co de Phone Number [facility] CLIA # [id number] [address] [place] [address] * (ABNORMAL) C-REACTIVE PROTEIN (01/19/2025 6:37 PM CDT) CRP 28.8(H) <5.0 mg/L 01/19/2025 7:05 PM CDT [facility] Blood Venipuncture / Unknown 01/19/2025 6:37 PM CDT 01/19/2025 6:48 PM CDT us Sanju [facility] CHEMISTRY ORDERABLES Final Re sult Performing Organization Address City/[facility]/ZIP Co de Phone Number [facility] CLIA # [id number] [address] [place] [address] * AMYLASE (01/19/2025 6:37 PM CDT) AMYLASE 33 28 - 100 U/L 01/19/2025 7:05 PM CDT [facility] Blood Venipuncture / Unknown 01/19/2025 6:37 PM CDT 01/19/2025 6:48 PM CDT us Sanju [facility] CHEMISTRY ORDERABLES Final Re sult Performing Organization Address City/[facility]/ZIP Co de Phone Number [facility] CLIA # [id number] [address] [place] [address]25 * HEMOGLOBIN A1C (06/17/2018 7:12 AM HYDROGEN PLANT OPERATIONS MANAGER) HEMOGLOBIN A1C 5.2 4.8 - 5.9 % 06/17/2018 9:37 AM HYDROGEN PLANT OPERATIONS MANAGER [facility] EST. AVG GLUCOSE, A1C 103 mg/dL 06/17/2018 9:37 AM [facility] Blood Venipuncture / Unknown 06/17/2018 7:12 AM HYDROGEN PLANT OPERATIONS MANAGER 06/17/2018 7:13 AM HYDROGEN PLANT OPERATIONS MANAGER [facility] - 06/17/2018 9:37 AM HYDROGEN PLANT OPERATIONS MANAGER If not available from last three months. HGB A1C INTERPRETATION NORMAL: <5.7% PRE-DIABETES: 5.7 - 6.4% DIABETES: 6.5% OR GREATER Benedicto Mcgill MD CHEMISTRY ORDERABLES Final Result [facility] CLIA # [id number] [address] [place] [address] [facility] CLIA # [id number] [address] [place] [address] from Last 3 Months or Most Recently Relevant to Health Maintenance Insurance [place] Advance Directives For more information, please contact: [phone] Documents on File Type Date Recorded Patient Rug Weaver Expl anation Advance Directive POA 02/23/2024 3:51 [...] 1:52 AM 10/27/2021 2:07 PM Care Teams Control And Recovery Special Tactics Relationship Specialty Start Date End Date Sally Dong MD [address] [facility] [address] [place] [address] PCP - General Family Practice 04/07/22
--- OUTSIDE RECORDS SUMMARY | 2025-04-20 21:16 | XMS_ITS | Encounter Summary ---
[facility] Organization [facility] Address [address] [place] [address] Care Team Providers Care Parking Lot Supervisor Name Role Phone Dara Tavera AMANDEEP Primary Care Provider [phone] Encounter Details Date Type Department Care Team (Latest Contact Info) Description 01/14/2007 Outpatient Historical [facility] [address] [place] [address] AMBULANCE, [facility] Hemorrhage of Rectum and Anus (Primary Dx) Social History Tobacco Use Types Packs/Day Years Used Date Smoking Tobacco: Never Assessed Comments Unknown Sex and Gender Information Value Date Recorded Sex Assigned at Not on file Legal Sex Female 5:22 AM WATCH DIAL STONER Gender Identity Not on file Sexual Orientation [...] 10/30/13 Resolved 11/04/2013 11/04/2013 8 10:33 AM WATCH DIAL STONER R/O COVID-19 12/25/2019 12/25/2019 12/26/2019 2:46 PM CDT R/O COVID-19 05/09/2020 05/09/2020 05/09/2020 12:1 7 PM WATCH DIAL STONER documented as of this encounter Care Teams Parking Lot Supervisor Relationship Specialty Start Date End Date Dara Tavera FNP [address] [place] [address] PCP - General NURSE PRACTITIONER 10/13/18 documented as of this encounter
--- OUTSIDE RECORDS SUMMARY | 2025-04-20 21:16 | XMS_ITS | Encounter Summary ---
Author Organization [facility] Address [address] [place] [address] Care Team Providers Care Bankruptcy Manager Name Role Phone Dara Tavera Primary Care Provider [phone] Encounter Details Date Type Department Care Team (Latest Contact Info) Description 04/15/2006 Outpatient Historical [facility] [address] [place] [address] AMBULANCE, [facility] Unspecified Nonpsychotic Mental Disorder (Primary Dx) Social History Tobacco Use Types Packs/Day Years Used Date Smoking Tobacco: Never Assessed Comments Unknown Sex and Gender Information Value Date Recorded Sex Assigned at Not on file Legal Sex Female 5:22 AM ASSISTANT AT SURGERY Gender Identity Not on file Sexual Orientation Not on file documented as of this encounter Plan of Treatment Not on file documented as of this encounter Visit Diagnoses Diagnosis Unspecified nonpsychotic mental disorder- Primary documented in this encounter Additional Health Concerns Infection Onset Date Last Indicated Resolved Time 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
--- OUTSIDE RECORDS SUMMARY | 2025-04-20 21:16 | XMS_ITS | Encounter Summary ---
Author Organization [facility] Address [address] [place] [address] Care Team Providers Care Qa Consultant Name Role Phone Dara Tavera Primary Care Provider [phone] Encounter Details Date Type Department Care Team (Latest Contact Info) Description 11/20/2006 Outpatient Historical [facility] [address] [place] [address] AMBULANCE, [facility] Pain in Joint, Shoulder Region (Primary Dx) Social History Tobacco Use Types Packs/Day Years Used Date Smoking Tobacco: Never Assessed Comments Unknown Sex and Gender Information Value Date Recorded Sex Assigned at Not on file Legal Sex Female 5:22 AM RETAIL SUPERVISOR Gender Identity Not on file Sexual Orientation Not on file documented as of this encounter Plan of Treatment Not on file documented as of this encounter Visit Diagnoses Diagnosis Pain in joint, shoulder region- Primary documented in this encounter Additional Health Concerns Infection Onset Date Last Indicated Resolved Time VRE Comment:Urine 10/30/13 Resolved 11/04/2013 11/04/2013 8 10:33 AM RETAIL SUPERVISOR R/O COVID-19 12/25/2019 12/25/2019 12/26/2019 2:46 PM CDT R/O COVID-19 05/09/2020 05/09/2020 05/09/2020 12:1 7 PM RETAIL SUPERVISOR documented as of this encounter Care Teams Qa Consultant Relationship Specialty Start Date End Date Dara Tavera FNP [address] [place] [address] PCP - General NURSE PRACTITIONER 10/13/18 documented as of this encounter
--- OUTSIDE RECORDS SUMMARY | 2025-04-20 21:16 | XMS_ITS | Encounter Summary ---
Author Organization [facility] Address [address] [place] [address] Care Team Providers Care Pawn Shop Keeper Name Role Phone Dara Tavera Primary Care Provider Encounter Details Date Type Department Care Team (Latest Contact Info) Description 04/13/2006 Outpatient Historical [facility] [address] [place] [address] AMBULANCE, [facility] Nausea with Vomiting (Primary Dx) Social History Tobacco Use Types Packs/Day Years Used Date Smoking Tobacco: Never Assessed Comments Unknown Sex and Gender Information Value Date Recorded Sex Assigned at Not on file Legal Sex Female 5:22 AM EMERGENCY NURSE Gender Identity Not on file Sexual Orientation Not on file documented as of this encounter Plan of Treatment Not on file documented as of this encounter Visit Diagnoses Diagnosis Nausea with vomiting- Primary documented in this encounter Additional Health Concerns Infection Onset Date Last Indicated Resolved Time VRE Comment:Urine 10/30/13 Resolved 11/04/2013 11/04/2013 8 10:33 AM EMERGENCY NURSE R/O COVID-19 12/25/2019 12/25/2019 12/26/2019 2:46 PM CDT R/O COVID-19 05/09/2020 05/09/2020 05/09/2020 12:1 7 PM EMERGENCY NURSE documented as of this encounter Care Teams Pawn Shop Keeper Relationship Specialty Start Date End Date Dara Tavera FNP [address] [place] [phone] PCP - General NURSE PRACTITIONER 10/13/18 documented as of this encounter
--- OUTSIDE RECORDS SUMMARY | 2025-04-20 21:16 | XMS_ITS | Encounter Summary ---
Author Organization [facility] Address [address] [place] [address] Care Team Providers Care Binder Stripper Machine Name Role Phone Dara Tavera Primary Care Provider Encounter Details Date Type Department Care Team (Latest Contact Info) Description 03/16/2006 Outpatient Historical [facility] [address] [place] [address] [address], [facility] Abdominal Pain, Unspecified Site (Primary Dx) Social History Tobacco Use Types Packs/Day Years Used Date Smoking Tobacco: Never Assessed Comments Unknown Sex and Gender Information Value Date Recorded Sex Assigned at Not on file Legal Sex Female 5:22 AM STATISTICS TEACHER Gender Identity Not on file Sexual Orientation Not on file documented as of this encounter Plan of Treatment Not on file documented as of this encounter Visit Diagnoses Diagnosis Abdominal pain, unspecified site- Primary documented in this encounter Additional Health Concerns Infection Onset Date Last Indicated Resolved Time VRE Comment:Urine 10/30/13 Resolved 11/04/2013 11/04/2013 8 10:33 AM STATISTICS TEACHER R/O COVID-19 12/25/2019 12/25/2019 12/26/2019 2:46 PM CDT R/O COVID-19 05/09/2020 05/09/2020 05/09/2020 12:1 7 PM STATISTICS TEACHER documented as of this encounter Care Teams Binder Stripper Machine Relationship Specialty Start Date End Date Dara Tavera FNP [address] [place] [phone] PCP - General NURSE PRACTITIONER 10/13/18 documented as of this encounter
--- OUTSIDE RECORDS SUMMARY | 2025-04-20 21:16 | XMS_ITS | Encounter Summary ---
Author Organization [facility] Address [address] [place] [address] Care Team Providers Care Mortgage Branch Manager Name Role Phone Dara Tavera PERSONAL CARE WORKER Primary Care Provider [phone] Encounter Details Date Type Department Care Team (Late st Contact Info) Description 11/29/2006 Outpatient Historical [facility] Luis Ross MD [address] [place] [address] Social History Tobacco Use Types Packs/Day Years Used Date Smoking Tobacco: Never Assessed Comments Unknown Sex and Gender Information Value Date Recorded Sex Assigned at Not on file Legal Sex Female 5:22 AM BODY RECALL INSTRUCTOR Gender Identity Not on file Sexual [...] Hays M.D. Date Signed: 11/29/06 [facility] Procedure Note 05/09/2009 Multiplanar imaging of the [...] Hays M.D. Date Signed: 11/29/06 [facility] Luis Ross MD MR ORDERABLES Final Result [...] Resolved 11/04/2013 11/04/2013 8 10:33 AM BODY RECALL INSTRUCTOR R/O COVID-19 12/25/2019 12/25/2019 12/26/2019 2:46 PM CDT R/O COVID-19 05/09/2020 05/09/2020 05/09/2020 12:1 7 PM BODY RECALL INSTRUCTOR documented as of this encounter Care Teams Mortgage Branch Manager Relationship Specialty Start Date End Date Dara Tavera FNP [address] [place] [phone] PCP - General NURSE PRACTITIONER 4/27/19 documented as of this encounter
--- OUTSIDE RECORDS SUMMARY | 2025-04-20 21:16 | XMS_ITS | Encounter Summary ---
Author Organization [facility] Address [address] [place] [address] Care Team Providers Care Control Electrician Name Role Phone Dara Tavera Primary Care Provider [phone] Encounter Details Date Type Department Care Team (Latest Contact Info) Description 03/15/2006 Outpatient Historical [facility] [address] [place] [address] AMBULANCE, [facility] Other Injury of Abdomen (Primary Dx) Social History Tobacco Use Types Packs/Day Years Used Date Smoking Tobacco: Never Assessed Comments Unknown Sex and Gender Information Value Date Recorded Sex Assigned at Not on file Legal Sex Female 5:22 AM PRESS CLIPPINGS CUTTER AND PASTER Gender Identity Not on file Sexual Orientation Not on file documented as of this encounter Plan of Treatment Not on file documented as of this encounter Visit Diagnoses Diagnosis Other injury of abdomen- Primary documented in this encounter Additional Health Concerns Infection Onset Date Last Indicated Resolved Time VRE Comment:Urine 10/30/13 Resolved 11/04/2013 11/04/2013 8 10:33 AM PRESS CLIPPINGS CUTTER AND PASTER R/O COVID-19 12/25/2019 12/25/2019 12/26/2019 2:46 PM CDT R/O COVID-19 05/09/2020 05/09/2020 05/09/2020 12:1 7 PM PRESS CLIPPINGS CUTTER AND PASTER documented as of this encounter Care Teams Control Electrician Relationship Specialty Start Date End Date Dara Tavera FNP [address] [place] [phone] PCP - General NURSE PRACTITIONER 4/27/19 documented as of this encounter
--- OUTSIDE RECORDS SUMMARY | 2025-04-20 21:16 | XMS_ITS | Encounter Summary ---
Author Organization [facility] Address [address] [place] [address] Care Team Providers Care Baggageman Name Role Phone Dara Tavera Primary Care Provider [phone] Encounter Details Date Type Department Care Team (Latest Contact Info) Description 03/06/2006 Outpatient Historical [facility] [address] [place] [address] AMBULANCE, [facility] Other Convulsions (CMS/HCC) (Primary Dx) Social History Tobacco Use Types Packs/Day Years Used Date Smoking Tobacco: Never Assessed Comments Unknown Sex and Gender Information Value Date Recorded Sex Assigned at Not on file Legal Sex Female 5:22 AM SHIPYARD PAINTER APPRENTICE Gender Identity Not on file Sexual Orientation Not on file documented as of this encounter Plan of Treatment Not on file documented as of this encounter Visit Diagnoses Diagnosis Other convulsions- Primary documented in this encounter Additional Health Concerns Infection Onset Date Last Indicated Resolved Time VRE Comment:Urine 10/30/13 Resolved 11/04/2013 11/04/2013 8 10:33 AM SHIPYARD PAINTER APPRENTICE R/O COVID-19 12/25/2019 12/25/2019 12/26/2019 2:46 PM CDT R/O COVID-19 05/09/2020 05/09/2020 05/09/2020 12:1 7 PM SHIPYARD PAINTER APPRENTICE documented as of this encounter Care Teams Baggageman Relationship Specialty Start Date End Date Dara Tavera FNP [address] [place] [address] PCP - General NURSE PRACTITIONER 10/13/18 documented as of this encounter
--- OUTSIDE RECORDS SUMMARY | 2025-04-20 21:16 | XMS_ITS | Encounter Summary ---
Author Organization [facility] Address [address] [place] [address] Care Team Providers Care Ladle Builder Name Role Phone Dara Tavera Primary Care Provider Encounter Details Date Type Department Care Team (Latest Contact Info) Description 11/12/2006 Outpatient Historical [facility] [address] [place] [address] AMBULANCE, [facility] Pain in Joint, Shoulder Region (Primary Dx) Social History Tobacco Use Types Packs/Day Years Used Date Smoking Tobacco: Never Assessed Comments Unknown Sex and Gender Information Value Date Recorded Sex Assigned at Not on file Legal Sex Female 5:22 AM ASSISTANT COACH Gender Identity Not on file Sexual Orientation Not on file documented as of this encounter Plan of Treatment Not on file documented as of this encounter Visit Diagnoses Diagnosis Pain in joint, shoulder region- Primary documented in this encounter Additional Health Concerns Infection Onset Date Last Indicated Resolved Time VRE Comment:Urine 10/30/13 Resolved 11/04/2013 11/04/2013 8 10:33 AM ASSISTANT COACH R/O COVID-19 12/25/2019 12/25/2019 12/26/2019 2:46 PM CDT R/O COVID-19 05/09/2020 05/09/2020 05/09/2020 12:1 7 PM ASSISTANT COACH documented as of this encounter Care Teams Ladle Builder Relationship Specialty Start Date End Date Dara Tavera FNP [address] [place] [address] PCP - General NURSE PRACTITIONER 10/13/18 documented as of this encounter
--- OUTSIDE RECORDS SUMMARY | 2025-04-20 21:16 | XMS_ITS | Encounter Summary ---
Author Organization [facility] Address [address] [place] [address] Care Team Providers Care Band Machine Operator Name Role Phone Dara Tavera PROFESSIONAL WRESTLER Primary Care Provider Reason for Referral * Outpatient Services (Routine) - Closed Specialty Diagnoses / Procedures Referred By Contac t Referred To Contact Radiology Diagnoses Chest pain, unspecified chest pain type SOB (shortness of breath) on exertion Procedures ECHO STRESS W CONTRAST EXER W DOPP AND COLOR FL ECHO STRESS TEST EXERCISE W DOPP AND COLOR FLOW Jorge Taylor MD [facility] Echo [place] [address] [place] [address] Phone: tel: fax: Referral ID Status Reason Start Date Expiration Date V isits Requested Visits Authorized [id number] Closed [facility] TO SCHEDULE (SGF) 10/05/2015 11/04/2016 1 1 Encounter Details Date Type Department Care Team (Latest Contact Info) Description 10/05/2015 Ancillary Orders [facility] Pulmonology [facility] [address] [place] [address] Jorge Taylor MD NO ADDRESS [...] on file Legal Sex Female 5:22 AM DRAGGER OUT Gender Identity Not on file Sexual Orientation [...] INTERFACE SYSTEM - 10/05/2015 12:22 PM CDT [facility] Echocardiography-[address] [place] [address] Stress Echocardiography Rafy protocol Patient: Choco Study ECHO STRESS Latesha Solis ID: TEST Gender: Jaye : 1965 Age: 49 Room: Study 10/05/2015 Pt Outpatient Date: Status: Study 11:16 AM [facility] #: [id number] Time: Ordering:Jorge Taylor Interpreting:Stephen Alberts MD Trial Examiner: Rosario Cam [facility] Indications [...] peak heart rate and blood pressure was 19708vy Hg/min. Functional capacity was decreased (greater than [...] peak heart rate and blood pressure was 25438xj Hg/min. Functional capacity was decreased (greater than [...] (*) waterman values outside specified normal range. [facility] are accredited with the Intersocietal Accreditation Commission - Echocardiography. Prepared and Electronically Authenticated Stephen Alberts MD Confirmed 10/05/2015 12:22 Procedure Note Stephen Alberts MD - 10/05/2015 [facility] Echocardiography-[place] [address] [place] [address] [place] [address] Stress Echocardiography Rafy protocol Patient: Choco Study ECHO STRESS Latesha Solis ID: TEST Gender: F : 1965 Age: 49 Room: Study 10/05/2015 Pt Outpatient Date: Status: Study 11:16 AM CSN #: [id number] Time: Ordering:Jorge Taylor Interpreting:Stephen Alberts MD Trial Examiner: Rosario Cam [facility] Indications [...] peak heart rate and blood pressure was 43635pd Hg/min. Functional capacity was decreased (greater than [...] peak heart rate and blood pressure was 46862kw Hg/min. Functional capacity was decreased (greater than [...] (*) waterman values outside specified normal range. [facility] are accredited with the Intersocietal [...] 10/30/13 Resolved 11/04/2013 11/04/2013 8 10:33 AM DRAGGER OUT R/O COVID-19 12/25/2019 12/25/2019 12/26/2019 2:46 PM CDT R/O COVID-19 05/09/2020 05/09/2020 05/09/2020 12:1 7 PM DRAGGER OUT documented as of this encounter Care Teams Band Machine Operator Relationship Specialty Start Date End Date Dara Tavera FNP [address] [place] [address] PCP - General NURSE PRACTITIONER 10/13/18 documented as of this encounter
--- OUTSIDE RECORDS SUMMARY | 2025-04-20 21:16 | XMS_ITS | Encounter Summary ---
Author Organization [facility] Address [address] [place] [address] Care Team Providers Care Suppression Crew Leader Name Role Phone Dara Tavera AMANDEEP Primary Care Provider Encounter Details Date Type Department Care Team (Late st Contact Info) Description 01/15/2007 Emergency [facility] Emergency Department [address] [place] [address] Raji Reyes MD NO ADDRESS ON FILE Unspecified, Hemorrhage of Gastrointestinal Tract (Primary Dx) Social History Tobacco Use Types Packs/Day Years Used Date Smoking Tobacco: Never Assessed Comments Unknown Sex and Gender Information Value Date Recorded Sex Assigned at Not on file Legal Sex Female 5:22 AM PROCESS EQUIPMENT OPERATOR Gender Identity Not on file Sexual [...] during normal , as reported by the networker, are summarized as follows: Gestational Age Expected hCG Values (mIU/ml) 0.2-1 Weeks 5 - 50 1-2 Weeks 50 - 500 2-3 Weeks 100 - 5,000 3-4 Weeks 1,000 - 50,000 5-6 Weeks 10,000 - 100,000 6-8 Weeks 15,000 - 200,000 2-3 Months 10,000 - 100,000 01/15/2007 9:00 AM CDT Raji Reyes MD CHEMISTRY ORDERABLES Edited Performing Organization Address [facility] Phone Number INTERFACE SYSTEM Refer to clinic/hospital department * LIPASE (01/15/2007 9:00 AM CDT) [facility] LIPASE 27 6 - 51 U/L INTERFACE SYSTEM Comment: As of 05 the [facility] has changed testing methods. The new reference range is 6-51 The old referance range was 23-300 01/15/2007 9:00 AM CDT Raji Reyes MD CHEMISTRY ORDERABLES Edited Performing Organization Address [facility] de Phone Number INTERFACE SYSTEM Refer to clinic/hospital department * (ABNORMAL) COMPREHENSIVE METABOLIC PANEL (01/15/2007 9:00 AM CDT) [facility] GLOBULIN (CALC) 2.8 2.4 - 3.9 g/dL [...] 10/30/13 Resolved 11/04/2013 11/04/2013 8 10:33 AM PROCESS EQUIPMENT OPERATOR R/O COVID-19 12/25/2019 12/25/2019 12/26/2019 2:46 PM CDT R/O COVID-19 05/09/2020 05/09/2020 05/09/2020 12:1 7 PM PROCESS EQUIPMENT OPERATOR documented as of this encounter Care Teams Suppression Crew Leader Relationship Specialty Start Date End Date Dara Tavera FNP [address] [place] [address] PCP - General NURSE PRACTITIONER 10/13/18 documented as of this encounter
--- OUTSIDE RECORDS SUMMARY | 2025-04-20 21:16 | XMS_ITS | Encounter Summary ---
Author Organization [facility] Address [address] [place] [address] Care Team Providers Care Value Stream Manager Name Role Phone Dara Tavera Primary Care Provider [phone] Encounter Details Date Type Department Care Team (Latest Contact Info) Description 12/12/2006 Outpatient Historical [facility] [address] [place] [address] AMBULANCE, [facility] Open Wound of Wrist, without Mention of Complication (Primary Dx) Social History Tobacco Use Types Packs/Day Years Used Date Smoking Tobacco: Never Assessed Comments Unknown Sex and Gender Information Value Date Recorded Sex Assigned at Not on file Legal Sex Female 5:22 AM LIGHT ARMORED VEHICLE OFFICER Gender Identity Not on file Sexual Orientation Not on file documented as of this encounter Plan of Treatment Not on file documented as of this encounter Visit Diagnoses Diagnosis Open wound of wrist, without mention of complication- Primary documented in this encounter Additional Health Concerns Infection Onset Date Last Indicated Resolved Time VRE Comment:Urine 10/30/13 Resolved 11/04/2013 11/04/2013 8 10:33 AM LIGHT ARMORED VEHICLE OFFICER R/O COVID-19 12/25/2019 12/25/2019 12/26/2019 2:46 PM CDT R/O COVID-19 05/09/2020 05/09/2020 05/09/2020 12:1 7 PM LIGHT ARMORED VEHICLE OFFICER documented as of this encounter Care Teams Value Stream Manager Relationship Specialty Start Date End Date Dara Tavera FNP [address] [place] [address] PCP - General NURSE PRACTITIONER 10/13/18 documented as of this encounter
--- OUTSIDE RECORDS SUMMARY | 2025-04-20 21:16 | XMS_ITS | Encounter Summary ---
Author Organization [facility] Address [address] [place] [address] Care Team Providers Care Dope Firer Name Role Phone Dara Tavera CREEL HAND Primary Care Provider [phone] Encounter Details Date Type Department Care Team (Late st Contact Info) Description 10/24/2011 Ancillary Orders [facility] [place] [address] [place] [address] Raleigh Najera MD NO ADDRESS [...] on file Legal Sex Female 5:22 AM CHIP MUCKER Gender Identity Not on file Sexual Orientation [...] acute changes seen jaw - transcribed in [employer] 10/26/2011 11:18 AM CDT ATTENTION: This replaces accession number [id number]. DESCRIPTION: AP view of the pelvis 4May 2011 shows several VersaTac spiral staple postoperative artifacts in the left inguinal region. Pelvic soft tissues appear unremarkable. The bones of the pelvis appear intact. Procedure Note Andre Vega MD - 10/26/2011 ATTENTION: This replaces accession number [id number]. DESCRIPTION: AP view of the pelvis 4May 2011 shows several VersaTac spiral staple postoperative artifacts in the left inguinal region. Pelvic soft tissues appear unremarkable. The bones of the pelvis appear intact. IMPRESSION no acute changes seen jaw - transcribed in [facility] - [facility] Raleigh Najera MD DIAGNOSTIC IMAGING ORDERABLE S Final Result * XR LUMBAR SPINE 2 OR 3 VW (10/21/2011 2:05 PM CDT) Anatomical Region Laterality Modality Spine Computed Radiogr aphy Impressions 10/26/2011 11:18 AM CDT 1. mild arthritic change 2. no acute changes seen jaw - transcribed in [employer] 10/26/2011 11:18 AM CDT ATTENTION: This replaces accession number [id number]. DESCRIPTION: AP and lateral lumbar spine views [...] - 10/26/2011 ATTENTION: This replaces accession number [id number]. DESCRIPTION: AP and lateral lumbar spine views [...] 10/30/13 Resolved 11/04/2013 11/04/2013 8 10:33 AM CHIP MUCKER R/O COVID-19 12/25/2019 12/25/2019 12/26/2019 2:46 PM CDT R/O COVID-19 05/09/2020 05/09/2020 05/09/2020 12:1 7 PM CHIP MUCKER documented as of this encounter Care Teams Dope Firer Relationship Specialty Start Date End Date Dara Tavera FNP [address] [place] [address] PCP - General NURSE PRACTITIONER 10/13/18 documented as of this encounter
--- OUTSIDE RECORDS SUMMARY | 2025-04-20 21:16 | XMS_ITS | Encounter Summary ---
Author Organization [facility] Address [address] [place] [address] Care Team Providers Care Licensed Mortician Name Role Phone Dara Tavera Primary Care Provider Encounter Details Date Type Department Care Team (Latest Contact Info) Description 04/12/2006 Outpatient Historical [facility] Ambulance [address] [place] [address] AMBULANCE, [facility] Nausea with Vomiting (Primary Dx) Social History Tobacco Use Types Packs/Day Years Used Date Smoking Tobacco: Never Assessed Comments Unknown Sex and Gender Information Value Date Recorded Sex Assigned at Not on file Legal Sex Female 5:22 AM FENCE MANUFACTURE SUPERVISOR Gender Identity Not on file Sexual Orientation Not on file documented as of this encounter Plan of Treatment Not on file documented as of this encounter Visit Diagnoses Diagnosis Nausea with vomiting- Primary documented in this encounter Additional Health Concerns Infection Onset Date Last Indicated Resolved Time VRE Comment:Urine 10/30/13 Resolved 11/04/2013 11/04/2013 8 10:33 AM FENCE MANUFACTURE SUPERVISOR R/O COVID-19 12/25/2019 12/25/2019 12/26/2019 2:46 PM CDT R/O COVID-19 05/09/2020 05/09/2020 05/09/2020 12:1 7 PM FENCE MANUFACTURE SUPERVISOR documented as of this encounter Care Teams Licensed Mortician Relationship Specialty Start Date End Date Dara Tavera FNP [address] [place] [address] PCP - General NURSE PRACTITIONER 10/13/18 documented as of this encounter
--- OUTSIDE RECORDS SUMMARY | 2025-04-20 21:16 | XMS_ITS | Encounter Summary ---
Author Organization [facility] Address [address] [place] [address] Care Team Providers Care Icing Mixer Name Role Phone Dara Tavera Primary Care Provider Encounter Details Date Type Department Care Team (Late st Contact Info) Description 09/07/2020 Ancillary Orders [facility] [address] [place] [address] Dara Tavera FNP [address] [place] [address] Pain in left foot Social [...] asked 05/05/2019 How often do you attend baptist or anabaptism serv ices? Not asked 05/05/2019 Do you belong to any clubs o r organizations such as baptist groups, unions, fraternal or athletic groups, or [...] on file Legal Sex Female 5:22 AM CORPORATE BUYER Gender Identity Not on file Sexual [...] union. 3. Osteoarthritis of the tarsometatarsal joints. [id number] Narrative Procedure Note Akira Liu MD - [...] union. 3. Osteoarthritis of the tarsometatarsal joints. [id number] Dara [facility] ES Final Result documented in this encounter Visit Diagnoses Diagnosis Pain in left foot Pain in limb Pain in left foot Pain in limb documented in this encounter Care Teams Icing Mixer Relationship Specialty Start Date End Date Dara Tavera FNP [address] [place] [phone] PCP - General NURSE PRACTITIONER 10/13/18 documented as of this encounter
--- OUTSIDE RECORDS SUMMARY | 2025-04-20 21:16 | XMS_ITS | Encounter Summary ---
Author Organization [facility] Address [address] [place] [address] Care Team Providers Care Card Services Specialist Name Role Phone Dara Tavera Primary Care Provider Encounter Details Date Type Department Care Team (Late st Contact Info) Description 05/19/2008 Outpatient Historical [facility] [address] 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
--- OUTSIDE RECORDS SUMMARY | 2025-04-20 21:16 | XMS_ITS | Encounter Summary ---
Author Organization [facility] Address [address] [place] [address] Care Team Providers Care Humanities And Languages Professor Name Role Phone Dara Tavera AMANDEEP Primary Care Provider Encounter Details Date Type Department Care Team (Latest Contact Info) Description 07/10/2020 Ancillary Orders [facility] Centralized Scheduling [address] [place] [address] Don Loja MD [address] [place] [address] Abdominal pain, unspecified abdominal location; [...] asked 05/05/2019 How often do you attend latter-day or methodist serv ices? Not asked 05/05/2019 Do you belong to any clubs o r organizations such as latter-day groups, unions, fraternal or athletic groups, or [...] on file Legal Sex Female 5:22 AM CARGO CHECKER Gender Identity Not on file Sexual [...] COVID-19? No / Unsure 07/08/2020 6:45 PM CARGO CHECKER documented as of this encounter Plan of Treatment Not on file documented as of this encounter Visit Diagnoses Diagnosis Abdominal pain, unspecified abdominal location Change in bowel habit documented in this encounter Care Teams Humanities And Languages Professor Relationship Specialty Start Date End Date Dara Tavera FNP [address] [place] [phone] PCP - General NURSE PRACTITIONER 10/13/18 documented as of this encounter
--- OUTSIDE RECORDS SUMMARY | 2025-04-20 21:16 | XMS_ITS | Encounter Summary ---
Author Organization [facility] Address [address] [place] [address] Care Team Providers Care Distillery Worker General Name Role Phone Dara Tavera Primary Care Provider Encounter Details Date Type Department Care Team (Latest Contact Info) Description 03/15/2006 Outpatient Historical [facility] [place] [address] [facility] [address] [place] [address] Fiaza Petersen MD NO ADDRESS ON FILE Open Wnd Anterior Abdomen (Primary Dx); Obesity, Unspecified Social History Tobacco Use Types Packs/Day Years Used Date Smoking Tobacco: Never Assessed Comments Unknown Sex and Gender Information Value Date Recorded Sex Assigned at Not on file Legal Sex Female 5:22 AM APPLIQUE CUTTER Gender Identity Not on file Sexual [...] 10/30/13 Resolved 11/04/2013 11/04/2013 8 10:33 AM APPLIQUE CUTTER R/O COVID-19 12/25/2019 12/25/2019 12/26/2019 2:46 PM CDT R/O COVID-19 05/09/2020 05/09/2020 05/09/2020 12:1 7 PM APPLIQUE CUTTER documented as of this encounter Care Teams Distillery Worker General Relationship Specialty Start Date End Date Dara Tavera FNP [address] [place] [address] PCP - General NURSE PRACTITIONER 10/13/18 documented as of this encounter
--- OUTSIDE RECORDS SUMMARY | 2025-04-20 21:16 | XMS_ITS | Encounter Summary ---
Author Organization [facility] Address [address] [place] [address] Care Team Providers Care Roofing Superintendent Name Role Phone Dara Tavera Primary Care Provider Encounter Details Date Type Department Care Team (Latest Contact Info) Description 12/24/2005 Outpatient Historical [facility] [address] [place] [address] AMBULANCE, [facility] Open Wnd Anterior Abdomen (Primary Dx) Social History Tobacco Use Types Packs/Day Years Used Date Smoking Tobacco: Never Assessed Comments Unknown Sex and Gender Information Value Date Recorded Sex Assigned at Not on file Legal Sex Female 5:22 AM LITERATURE TEACHER Gender Identity Not on file Sexual [...] 10/30/13 Resolved 11/04/2013 11/04/2013 8 10:33 AM LITERATURE TEACHER R/O COVID-19 12/25/2019 12/25/2019 12/26/2019 2:46 PM CDT R/O COVID-19 05/09/2020 05/09/2020 05/09/2020 12:1 7 PM LITERATURE TEACHER documented as of this encounter Care Teams Roofing Superintendent Relationship Specialty Start Date End Date Dara Tavera FNP [address] [place] [phone] PCP - General NURSE PRACTITIONER 10/13/18 documented as of this encounter
--- OUTSIDE RECORDS SUMMARY | 2025-04-20 21:16 | XMS_ITS | Encounter Summary ---
Author Organization [facility] Address [address] [place] [address] Care Team Providers Care Business Reporter Name Role Phone Dara Tavera EAR SPECIALIST Primary Care Provider Reason for Visit * Reason Comments Medication Refill Encounter Details Date Type Department Care Team (Late st Contact Info) Description 07/25/2019 Refill [facility] [address] [place] [address] Danial Farias, HETAL [address] [place] [address] Social History Tobacco Use Types [...] How often do you attend pentecostalism or mormon serv ices? Not asked 05/05/2019 [...] file Legal Sex Female 5:22 AM MANAGER CODE Gender Identity Not on file Sexual Orientation [...] 05/09/2020 05/09/2020 05/09/2020 12:1 7 PM MANAGER CODE documented as of this encounter Care Teams Business Reporter Relationship Specialty Start Date End Date Dara Tavera FNP [address] [place] [phone] PCP - General NURSE PRACTITIONER 10/13/18 documented as of this encounter
--- OUTSIDE RECORDS SUMMARY | 2025-04-20 21:16 | XMS_ITS | Encounter Summary ---
Author Organization [facility] Address [address] [place] [address] Care Team Providers Care Supervisor Multifocal Lens Name Role Phone Dara Tavera Primary Care Provider Encounter Details Date Type Department Care Team (Latest Contact Info) Description 04/07/2006 Outpatient Historical [facility] [address] [place] [address] AMBULANCE, [facility] Other Convulsions (CMS/HCC) (Primary Dx) Social History Tobacco Use Types Packs/Day Years Used Date Smoking Tobacco: Never Assessed Comments Unknown Sex and Gender Information Value Date Recorded Sex Assigned at Not on file Legal Sex Female 5:22 AM PROJECTION WELDING MACHINE OPERATOR Gender Identity Not on file Sexual Orientation Not on file documented as of this encounter Plan of Treatment Not on file documented as of this encounter Visit Diagnoses Diagnosis Other convulsions- Primary documented in this encounter Additional Health Concerns Infection Onset Date Last Indicated Resolved Time 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
--- OUTSIDE RECORDS SUMMARY | 2025-04-20 21:16 | XMS_ITS | Encounter Summary ---
Author Organization [facility] Address [address] [place] [address] Care Team Providers Care Carton Stamper Name Role Phone Dara Tavera Primary Care Provider Encounter Details Date Type Department Care Team (Latest Contact Info) Description 02/04/2007 Outpatient Historical [facility] [address] [place] [address] AMBULANCE, [facility] Cervicalgia (Primary Dx) Social History Tobacco Use Types Packs/Day Years Used Date Smoking Tobacco: Never Assessed Comments Unknown Sex and Gender Information Value Date Recorded Sex Assigned at Not on file Legal Sex Female 5:22 AM BELL VALET Gender Identity Not on file Sexual Orientation Not on file documented as of this encounter Plan of Treatment Not on file documented as of this encounter Visit Diagnoses Diagnosis Cervicalgia- Primary documented in this encounter Additional Health Concerns Infection Onset Date Last Indicated Resolved Time 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
--- OUTSIDE RECORDS SUMMARY | 2025-04-20 21:16 | XMS_ITS | Encounter Summary ---
Author Organization [facility] Address [address] [place] [address] Care Team Providers Care Otr [employer] Truck Driver Name Role Phone Dara Tavera AMANDEEP Primary Care Provider Encounter Details Date Type Department Care Team (Late st Contact Info) Description 01/14/2007 Emergency [facility] Emergency Department [address] [place] [address] Benedicto Rojo MD NO ADDRESS ON FILE Abdominal Pain, Other Specified Site (Primary Dx) Social History Tobacco Use Types Packs/Day Years Used Date Smoking Tobacco: Never Assessed Comments Unknown Sex and Gender Information Value Date Recorded Sex Assigned at Not on file Legal Sex Female 5:22 AM BANQUET PILOT Gender Identity Not on file Sexual [...] MD CHEMISTRY ORDERABLES Edited Performing Organization Address [facility] de Phone Number INTERFACE SYSTEM [...] MD HEMATOLOGY ORDERABLES Edited Performing Organization Address [facility] Co de Phone Number INTERFACE SYSTEM Refer to clinic/hospital department documented in this encounter Visit Diagnoses Diagnosis Abdominal pain, other specified site- Primary documented in this encounter Additional Health Concerns Infection Onset Date Last Indicated Resolved 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
[2025-04-20 21:21] VITALS: BP 98/64; PULSE 87; RESP 18; TEMP 36.6; O2SAT 97; BMI 29.0
[2025-04-20 21:26] VITALS: BP 98/64; PULSE 87; RESP 18; TEMP 36.6; O2SAT 97
[2025-04-20] MEDS: ondansetron 2 mg/ML SDV 2 mL 4 MG IVP (22:01)
[2025-04-20 22:04] LABS: Hematocrit 35.4 % (36-47); Hemoglobin 11.70 g/dL (11.27-16.99); Mean Corpuscular HGB Conc 33.1 g/dL (30-55); Mean Corpuscular Hemoglobin 32.7 pg (27-33); Mean Corpuscular Volume 98.9 fl (85-98); Nucleated Red Blood Cells % 0 %; Platelet Count 183 10^3/cmm (157-399); Red Blood Count 3.58 10^6/uL (3.85-5.65); White Blood Count 12.21 10^3/uL (3.29-11.43)
[2025-04-20] MEDS: HYDROmorphone 0.5 MG/0.5 ML INJ 1 MG IVP (22:04)
[2025-04-20 22:10] VITALS: BP 118/49; PULSE 69; O2SAT 95
[2025-04-20 22:26] LABS: Alanine Aminotransferase 9 U/L (0-33); Albumin Level 3.9 g/dL (3.5-5.2); Alkaline Phosphatase 114 U/L (35-105); Anion Gap 13.6 (5-19); Aspartate Amino Transferase 18 U/L (0-32); Blood Urea Nitrogen 21 mg/dL (6-20); Calcium 9.4 mg/dL (8.5-10.5); Carbon Dioxide 22 mmol/L (22-29); Chloride 104 mmol/L (98-107); Creatinine Clr Calc Pharmacy 57.7221; Globulin 2.4 g/dL (1.3-4.6); Glucose 123 mg/dL (65-115); Lipase 20 U/L (13-60); Osmolality Calculated 286 mOsm/kg (285-295); Potassium 3.6 mmol/L (3.5-5.1); Sodium 136 mmol/L (136-145); Total Protein 6.3 g/dL (6.6-8.7)
[2025-04-20 22:41] VITALS: BP 112/61; PULSE 68; O2SAT 95
--- NOTE | 2025-04-20 22:56 | W.ED.ABDPA2 ---
HPI - Abdominal Pain General: Chief Complaint: Abdominal Pain Stated Complaint: ABD PAIN Time Seen by Provider: 04/20/25 21:29 Source: patient Mode of arrival: EMS Limitations: no limitations History of Present Illness: Patient is a 59-year-old female well-known to the emergency department presenting by ambulance for recurrence of abdominal pain. This is the same abdominal pain she has had multi in the past, states that it overall is intermittent and tonight hit her around 1900 while she was sitting down. It is epigastric, and she has had some vomiting with it. Otherwise no other new symptoms, no fever or recent illness. States that she does have a history of IBS and that this has been flared up recently. EMS gave [facility], she states her nausea has improved somewhat. Normal bowel movements. Also notes some burning with urination. Vital stable at this time, she is nontoxic-appearing. Denies any abdominal trauma. MD elicited complaint: abdominal pain Associated Symptoms: Reports dysuria, nausea and vomiting; Denies bloating, change in stool character, chills, constipation, diarrhea, fever(s) and hematochezia Related Data Home Medications ?Medication ?Instructions ?Recorded ?Confirmed acetaminophen 500 mg tablet 1,000 mg PO Q6H PRN Pain 07/09/21 04/14/25 pantoprazole 40 mg tablet,delayed 40 mg PO BID 07/27/23 04/14/25 release ondansetron HCl 4 mg tablet 4 mg PO Q8H 01/22/24 04/14/25 prednisolone acetate 1 % eye drp ophthalmic (eye) 05/10/24 04/14/25 drops,suspension dicyclomine 10 mg capsule 10 mg PO BID PRN 05/27/24 04/14/25 sucralfate 1 gram tablet (Carafate) 1 g PO QID 05/27/24 04/14/25 famotidine 20 mg tablet mg PO 09/23/24 04/14/25 lubiprostone 24 mcg capsule mcg PO 09/23/24 04/14/25 Previous Rx's ?Medication ?Instructions ?Recorded nystatin 100,000 unit/gram topical 1 applic topical BID #30 grams 06/16/22 powder SOLE Supports #1 ea 01/01/24 fluticasone propionate 50 1 spray intranasal DAILY PRN nasal 05/10/24 mcg/actuation nasal congestion 30 days #16 grams spray,suspension (Flonase Allergy Relief) Rollator Walker #1 ea 09/06/24 promethazine 25 mg tablet 12.5 - 25 mg (0.5 - 1 x 25 mg) PO 10/05/24 Q6H PRN nausea and vomiting #10 tabs albuterol sulfate 90 mcg/actuation See Rx Instructions .Route 11/22/24 aerosol inhaler .COMPLEX #9 grams cholecalciferol (vitamin D3) 1,250 1,250 mcg PO .once a week 90 days 12/16/24 mcg (50,000 unit) capsule #12 caps albuterol sulfate 2.5 mg/3 mL 2.5 mg (3 mL) inhalation Q8H PRN 03/26/25 (0.083 %) solution for nebulization bronchospasm 10 days #90 mL nebulizer #1 ea 03/26/25 cyclobenzaprine 10 mg tablet 10 mg PO TID PRN muscle spasm #90 04/01/25 tabs lamotrigine 200 mg tablet 200 mg PO DAILY@06 #30 tabs 04/10/25 quetiapine 25 mg tablet See Rx Instructions PO .COMPLEX 04/10/25 anxiety and agitation #150 tabs trazodone 300 mg tablet 300 mg PO .q hs PRN sleep #30 tabs 04/10/25 vortioxetine 20 mg tablet 20 mg PO .q am #30 tabs 04/10/25 vortioxetine 5 mg tablet 5 mg PO DAILY #30 tabs 04/10/25 tizanidine 4 mg tablet 4 mg PO BID PRN muscle spasticity 04/14/25 #60 tabs Allergies Allergy/AdvReac Type Severity Reaction Status Date / Time haloperidol (From Haldol) Allergy Severe unknown Verified 04/14/25 10:09 Penicillins Allergy Severe ALGY-Anaphy Verified 04/14/25 10:09 laxis sulfamethoxazole (From Allergy Severe ALGY-Hives Verified 04/14/25 10:09 Bactrim) Tetracyclines Allergy Severe ALGY-Hives Verified 04/14/25 10:09 gabapentin (From Neurontin) Allergy Intermediate ADR-Halluci Verified 04/14/25 10:09 nating ketorolac (From Toradol) Allergy Intermediate ALGY-Rash Verified 04/14/25 10:09 lithium Allergy Intermediate ADR-Halluci Verified 04/14/25 10:09 nating fentanyl Allergy Mild rash Verified 04/14/25 10:09 adhesive tape Allergy Rash Verified 04/14/25 10:09 codeine Allergy GI Verified 04/14/25 10:09 duloxetine (From Cymbalta) Allergy ALGY-Rash Verified 04/14/25 10:09 fluoxetine Allergy ADR-Migrain Verified 04/14/25 10:09 e metoclopramide (From Reglan) Allergy ADR-Shakine Verified 04/14/25 10:09 ss nitroglycerin Allergy ADV-Weaknes Verified 04/14/25 10:09 s tramadol Allergy Unknown Verified 04/14/25 10:09 trimethoprim (From Bactrim) Allergy ALGY-Hives Verified 04/14/25 10:09 ziprasidone (From Geodon) AdvReac Severe ADR-Halluci Verified 04/14/25 10:09 nating risperidone (From Risperdal) AdvReac ADR-Halluci Verified 04/14/25 10:09 nating Review of Systems General: Reports: 10 or more systems reviewed and unremarkable except in HPI and below Const: Denies: fever(s), chills, change in appetite, change in weight or diaphoresis ENMT: Denies: throat pain or hoarseness Card: Denies: chest pain, palpitations or lightheadedness Resp: Denies: dyspnea, productive cough or wheezing GI: Reports: abdominal pain, nausea and vomiting; Denies: diarrhea, constipation, bloating, change in stool character or hematochezia : Reports: dysuria; Denies: flank pain, difficulty voiding, urinary frequency or urinary urgency Musc: Denies: neck pain or back pain Skin/Breast: Denies: rash or new lesions Neuro: Denies: headache(s) or dizziness PFSH ED PFSH: Medical History Chronic gastritis without bleeding Insomnia Tobacco use disorder Opioid dependence, uncomplicated Cannabis dependence, uncomplicated Psychiatric care Tardive dyskinesia Esophageal stricture Cystitis cystica Restrictive lung disease Chronic back pain greater than 3 months duration Borderline personality disorder Schizoaffective disorder, bipolar type Urgency incontinence Neurogenic bladder Dysphagia COPD (chronic obstructive pulmonary disease) GERD without esophagitis Foreign body in bladder Bladder stone Chronic anxiety Surgical History H/O bladder repair surgery MESH REPAIR H/O esophagogastroduodenoscopy (09/21/20) H/O colonoscopy with polypectomy History of foot surgery sx in 2009. Screws placed by Dr. Don. S/P bronchoscopy with biopsy History of ureter stent History of breast biopsy Hx of cholecystectomy H/O: hysterectomy History of appendectomy Family History Mother No problems noted. Father No problems noted. Other Asthma Cancer Diabetes Heart disease Social History Smoking and tobacco/nicotine status: never used tobacco/nicotine Quit status (tobacco/nicotine): considering quitting Second hand smoke exposure: Yes Alcohol intake: never Substance/Drug Use: former Lives independently: Yes Household members: spouse Marital status: Number of children: 3 Current occupational status: disabled Do you think of yourself as: Straight/Heterosexual Current gender identity: Female Physical Exam Const: COMMON NORMALS: no acute distress, patient oriented x3, no limitations, alert and well nourished GENERAL APPEARANCE: cooperative and comfortable ORIENTATION/CONSCIOUSNESS: Yes awake OTHER: nontoxic Neck/C-Spine: COMMON NORMALS: full ROM, supple and no meningeal signs Resp: COMMON NORMALS: normal respiratory effort, No retractions, No use of accessory muscles and clear to auscultation bilaterally AUSCULTATION: clear to auscultation bilaterally, no crackles, no rales, no rhonchi and no wheezes Cardio: COMMON NORMALS: regular rate, regular rhythm, No gallops present (Cardio), No clicks present (Cardio), No murmurs present (Cardio) and No rub (Cardio) RATE: regular rate RHYTHM: regular rhythm GI: COMMON NORMALS: Normal to inspection, nondistended, normoactive bowel sounds present, Soft to palpation, No hepatosplenomegaly present and no masses AUSCULTATION: Yes normoactive bowel sounds PALPATION: Yes Soft to palpation, Yes Tenderness to palpation present (GI) (Diffuse), Yes Guarding due to palpation present (GI) (Voluntary), No Rigid due to palpation and Yes No hepatosplenomegaly present RECTAL EXAM: deferred Extremity: COMMON NORMALS: normal to inspection and full ROM Neuro: COMMON NORMALS: patient oriented x3, moves all extremities, no focal motor deficits and no sensory deficits noted SENSORIUM/ORIENTATION: Yes alert MENINGEAL SIGNS: Yes no meningeal signs Psych: COMMON NORMALS: mental status grossly normal, cooperative and speech normal SPEECH: Yes normal speech Skin: COMMON NORMALS: no rashes or lesions noted GENERAL SKIN EXAM: no rashes or lesions noted Course Vital Signs: Vital signs: Vital Signs Temperature 97.9 F 04/20/25 21:26 Pulse Rate 68 04/20/25 22:41 Respiratory Rate 18 04/20/25 21:26 Blood Pressure 112/61 04/20/25 22:41 Pulse Oximetry 95 04/20/25 22:41 Oxygen Delivery Me thod Nasal Cannula 04/20/25 22:10 MDM - Abdominal Pain Medical Decision Making Patient well-known to the emergency department presented by ambulance for continued upper abdominal pain. Overall this has been bothering her for years, no suspicion there is any acute process. The labs are ordered, all baseline. Medications and fluids given IV, states that she felt significantly better after and is requesting to leave. Do not suspect any acute processes given return precautions. Lab Data 04/20/25 21:58 04/20/25 21:58 Labs/Radiology: Laboratory Results WBC 12.21 10^3/uL (3.29-11.43) H 04/20/25 21:58 RBC 3.58 10^6/uL (3.85-5.65) L 04/20/25 21:58 Hgb 11.70 g/dL (11.27-16.99) 04/20/25 21:58 Hct 35.4 % (36-47) L 04/20/25 21:58 MCV 98.9 fl (85-98) H 04/20/25 21:58 MCH 32.7 pg (27-33) 04/20/25 21:58 MCHC 33.1 g/dL (30-55) 04/20/25 21:58 RDW 12.9 % (12.1-15.1) 04/20/25 21:58 Plt Count 183 10^3/cmm (157-399) 04/20/25 21:58 MPV 9.5 fL (7.4-10.4) 04/20/25 21:58 Neut % (Auto) 70.6 % 04/20/25 21:58 Lymph % (Auto) 18.6 % 04/20/25 21:58 [place] % (Auto) 7.2 % 04/20/25 21:58 Eos % (Auto) 2.6 % 04/20/25 21:58 Baso % (Auto) 0.7 % 04/20/25 21:58 Neut # (Auto) 8.61 10^3/uL (1.8-7.7) H 04/20/25 21:58 Lymph # (Auto) 2.3 10^3/uL (0.8-4.8) 04/20/25 21:58 [place] # (Auto) 0.9 10^3/uL (0.2-0.9) 04/20/25 21:58 Eos # (Auto) 0.3 10^3/uL (0.0-0.8) 04/20/25 21:58 Baso # (Auto) 0.1 10^3/uL (0.0-0.1) 04/20/25 21:58 Nucleated RBC % (auto) 0 % 04/20/25 21:58 Nucleated RBCs # 0.0 /100WBC 04/20/25 21:58 Sodium 136 mmol/L (136-145) 04/20/25 21:58 Potassium 3.6 mmol/L (3.5-5.1) 04/20/25 21:58 Chloride 104 mmol/L (98-107) 04/20/25 21:58 Carbon Dioxide 22 mmol/L (22-29) 04/20/25 21:58 Anion Gap 13.6 (5-19) 04/20/25 21:58 BUN 21 mg/dL (6-20) H 04/20/25 21:58 Creatinine 1.0 mg/dL (0.5-0.9) H 04/20/25 21:58 GFR Calculation 57.1 mL/min (90-130) L 04/20/25 21:58 Glucose 123 mg/dL (65-115) H 04/20/25 21:58 Calculated Osmolality 286 mOsm/kg (285-295) 04/20/25 21:58 Calcium 9.4 mg/dL (8.5-10.5) 04/20/25 21:58 Total Bilirubin 0.2 mg/dL (0.15-1.2) 04/20/25 21:58 AST 18 U/L (0-32) 04/20/25 21:58 ALT 9 U/L (0-33) 04/20/25 21:58 Alkaline Phosphatase 114 U/L (35-105) H 04/20/25 21:58 Total Protein 6.3 g/dL (6.6-8.7) L 04/20/25 21:58 Albumin 3.9 g/dL (3.5-5.2) 04/20/25 21:58 Globulin 2.4 g/dL (1.3-4.6) 04/20/25 21:58 Lipase 20 U/L (13-60) 04/20/25 21:58 Urine Color Yellow (Yellow) 04/20/25 23:00 Urine Appearance Clear (CLEAR) 04/20/25 23:00 Urine pH 5.5 (5-7) 04/20/25 23:00 Ur Specific [place] 1.013 (1.005-1.030) 04/20/25 23:00 Urine Protein Negative (Negative) 04/20/25 23:00 Urine Glucose (UA) Negative (Normal) 04/20/25 23:00 Urine Ketones Negative (Negative) 04/20/25 23:00 Urine Blood Negative (Negative) 04/20/25 23:00 Urine Nitrate Negative (Negative) 04/20/25 23:00 Urine Bilirubin Negative (Negative) 04/20/25 23:00 Urine Urobilinogen 0.2 mg/dL (Negative) 04/20/25 23:00 Ur Leukocyte Esterase 1+ (Negative) A 04/20/25 23:00 Urine RBC 0-2 /hpf (0-2) 04/20/25 23:00 Urine WBC 11-20 /hpf (0-5) H 04/20/25 23:00 Ur Squamous Epith Cells 0-5 /hpf (0-5) 04/20/25 23:00 Amorphous Sediment Not Reportable 04/20/25 23:00 Urine Bacteria None seen /hpf (NONE) 04/20/25 23:00 Hyaline Casts 0.81 /lpf 04/20/25 23:00 No radiology studies performed this visit Discharge Plan Discharge Patient Disposition: Home Clinical Impression: Chronic gastritis without bleeding Qualifiers: Gastritis type: unspecified gastritis Qualified Code(s): K29.50 - Unspecified chronic gastritis without bleeding Condition: Stable Prescriptions: No Action pantoprazole 40 mg tablet,delayed release (DR/EC) 40 mg PO BID (DME) SOLE Supports See Rx Instructions .Route .MEDSUPPLY Qty: 1 0RF Rx Instructions: As directed PRE-Auth prednisolone acetate 1 % drops,suspension ophthalmic (eye) fluticasone propionate [Flonase Allergy Relief] 50 mcg/actuation spray,suspension 1 spray intranasal DAILY PRN (Reason: nasal congestion) 30 Days Qty: 16 2RF Rx Instructions: administer into each nostril dicyclomine 10 mg capsule 10 mg PO BID PRN famotidine 20 mg tablet PO lubiprostone 24 mcg capsule PO tizanidine 4 mg tablet 4 mg PO BID PRN (Reason: muscle spasticity) Qty: 60 0RF albuterol sulfate 2.5 mg /3 mL (0.083 %) solution for nebulization 2.5 mg inhalation Q8H PRN (Reason: bronchospasm) 10 Days Qty: 90 0RF (DME) nebulizer See Rx Instructions .Route .MEDSUPPLY Qty: 1 0RF Rx Instructions: daily PRN ondansetron HCl 4 mg tablet 4 mg PO Q8H sucralfate [Carafate] 1 gram tablet 1 g PO QID lamotrigine 200 mg tablet 200 mg PO DAILY@06 Qty: 30 2RF Rx Instructions: Take one tablet by mouth every morning quetiapine 25 mg tablet See Rx Instructions PO .COMPLEX Qty: 150 2RF Rx Instructions: Take 1 tablet every AM, and 2 at bedtime; may take 1 additional tablet twice during the daytime, if needed for anxiety and agitation vortioxetine 20 mg tablet 20 mg PO .q am Qty: 30 2RF Rx Instructions: Take one tablet once daily vortioxetine 5 mg tablet 5 mg PO DAILY Qty: 30 2RF Rx Instructions: Take one tablet daily with the 20 mg dose trazodone 300 mg tablet 300 mg PO .q hs PRN (Reason: sleep) Qty: 30 2RF Rx Instructions: Take one tablet daily at bedtime, if needed for sleep nystatin 100,000 unit/gram powder 1 applic topical BID Qty: 30 0RF Rx Instructions: apply locally to B/L groin folds (DME) Rollator Walker See Rx Instructions .Route .MEDSUPPLY Qty: 1 0RF Rx Instructions: As directed HOME: Length of need 4 months albuterol sulfate 90 mcg/actuation HFA aerosol inhaler See Rx Instructions .ROUTE .COMPLEX Qty: 9 0RF Dose Instruction: INHALE 2 PUFFS BY MOUTH EVERY 6 HOURS NEEDED FOR SHORTNESS OF BREATH OR WHEEZING Rx Instructions: INHALE 2 PUFFS BY MOUTH EVERY 6 HOURS NEEDED FOR SHORTNESS OF BREATH OR WHEEZING cholecalciferol (vitamin D3) 1,250 mcg (50,000 unit) capsule 1,250 mcg PO .once a week 90 Days Qty: 12 0RF cyclobenzaprine 10 mg tablet 10 mg PO TID PRN (Reason: muscle spasm) Qty: 90 0RF acetaminophen 500 mg Tablet 1,000 mg PO Q6H PRN (Reason: Pain) promethazine 25 mg tablet 12.5 - 25 mg PO Q6H PRN (Reason: nausea and vomiting) Qty: 10 0RF Rx Instructions: 4 doses during day; last dose no later than 4 hr before bedtime Discharge Orders: Discharge ED (Routine); Ordered 04/20/25 Ordered By: Edgar Brown Referrals: Dara Tavera FNP [Primary Care Provider, Family Practice] Patient Instructions: Abdominal Pain (ED), Patient Portal & [facility] Instructions Activity Restrictions/Additional Instructions: Continue taking home medications. Follow-up with primary care. Return with any new or worsening. Print Language: Azeri Coding Level of Care Code ED English Faculty Member for Shellie Guallpa
[2025-04-20 23:29] LABS: Glucose Urine UA Negative (Normal); Nitrate Urine Negative (Negative); Specific Gravity, Urine 1.013 (1.005-1.030)
[2025-04-20 23:34] LABS: Add Urine Microscopic? YES
== END 2025-04-20 23:36 | disposition home or self-care (01) ==
PROVIDERS: Emergency Provider Physician Assistant; PCP Registered Nurse
DX: K29.50 Unspecified chronic gastritis without bleeding (principal); J44.9 Chronic obstructive pulmonary disease, unspecified
CPT/HCPCS: 36415; 80053; 81001; 83690; 85025; 96361; 96374; 96375; 99284; J1171; J2405; J7030

== ENCOUNTER → 2025-04-24 09:34 | Outpatient (BNVA) | payer OTHER, SELFPAY | PROVIDERS: PCP Registered Nurse; Visit Provider Registered Nurse | DX: R68.89 Other general symptoms and signs (principal) | CPT/HCPCS: 87400; 87426 ==

== ENCOUNTER 2025-04-29 17:42 | Emergency (ER) | payer MEDICARE, MEDICAID, SELFPAY ==
[2025-04-29 17:42] VITALS: RESP 18
[2025-04-29 17:46] VITALS: BP 130/71; PULSE 73; RESP 18; TEMP 36.4; O2SAT 97
--- OUTSIDE RECORDS SUMMARY | 2025-04-29 17:48 | XMS_ITS | Encounter Summary ---
Author Organization [facility] Address [address] [place] [address] Care Team Providers Care Machine Feller Name Role Phone Dara Tavera Primary Care Provider Encounter Details Date Type Department Care Team (Latest Contact Info) Description 05/12/2004 Outpatient Historical [facility] [address] [place] [address] AMBULANCE, [facility] CHEST PAIN NOS (Primary Dx) Social History Tobacco Use Types Packs/Day Years Used Date Smoking Tobacco: Never Assessed Comments Unknown Sex and Gender Information Value Date Recorded Sex Assigned at Not on file Legal Sex Female 5:22 AM WIRER HELPER Gender Identity Not on file Sexual Orientation Not on file documented as of this encounter Plan of Treatment Not on file documented as of this encounter Visit Diagnoses Diagnosis Chest pain, unspecified- Primary documented in this encounter Additional Health Concerns Infection Onset Date Last Indicated Resolved Time VRE Comment:Urine 10/30/13 Resolved 11/04/2013 11/04/2013 8 10:33 AM WIRER HELPER R/O COVID-19 12/25/2019 12/25/2019 12/26/2019 2:46 PM CDT R/O COVID-19 05/09/2020 05/09/2020 05/09/2020 12:1 7 PM WIRER HELPER documented as of this encounter Care Teams Machine Feller Relationship Specialty Start Date End Date Dara Tavera FNP [address] [place] [id number] PCP - General NURSE PRACTITIONER 10/13/18 documented as of this encounter
--- OUTSIDE RECORDS SUMMARY | 2025-04-29 17:48 | XMS_ITS | Encounter Summary ---
Author Organization [facility] Address [address] [place] [address] Care Team Providers Care Communication Specialist Name Role Phone Dara Tavera Primary Care Provider Encounter Details Date Type Department Care Team (Late st Contact Info) Description 01/04/2004 Outpatient Historical [facility] [address] [place] [address] Hood Kerr Jr., MD [address] [place] [address] Social History Tobacco Use Types Packs/Day Years Used Date Smoking Tobacco: Never Assessed Comments Unknown Sex and Gender Information Value Date Recorded Sex Assigned at Not on file Legal Sex Female 5:22 AM TRUCK LOADER OVERHEAD CRANE Gender Identity Not on file Sexual Orientation Not on file documented as of this encounter Plan of Treatment Not on file documented as of this encounter Visit Diagnoses Not on filedocumented in this encounter Additional Health Concerns Infection Onset Date Last Indicated Resolved Time VRE Comment:Urine 10/30/13 Resolved 11/04/2013 11/04/2013 8 10:33 AM TRUCK LOADER OVERHEAD CRANE R/O COVID-19 12/25/2019 12/25/2019 12/26/2019 2:46 PM CDT R/O COVID-19 05/09/2020 05/09/2020 05/09/2020 12:1 7 PM TRUCK LOADER OVERHEAD CRANE documented as of this encounter Care Teams Communication Specialist Relationship Specialty Start Date End Date Dara Tavera FNP [address] [place] [phone] PCP - General NURSE PRACTITIONER 10/13/18 documented as of this encounter
--- OUTSIDE RECORDS SUMMARY | 2025-04-29 17:48 | XMS_ITS | Encounter Summary ---
Author Organization [facility] Address [address] [place] [address] Care Team Providers Care Manager Oracle Retail Name Role Phone Dara Tavera Primary Care Provider Encounter Details Date Type Department Care Team (Latest Contact Info) Description 07/24/2004 Outpatient Historical [facility] [address] [place] [address] AMBULANCE, [facility] CONVULSIONS, OTHER (CMS/HCC) (Primary Dx) Social History Tobacco Use Types Packs/Day Years Used Date Smoking Tobacco: Never Assessed Comments Unknown Sex and Gender Information Value Date Recorded Sex Assigned at Not on file Legal Sex Female 5:22 AM WOOD BOAT BUILDER SUPERVISOR Gender Identity Not on file Sexual Orientation Not on file documented as of this encounter Plan of Treatment Not on file documented as of this encounter Visit Diagnoses Diagnosis Other convulsions- Primary documented in this encounter Additional Health Concerns Infection Onset Date Last Indicated Resolved Time VRE Comment:Urine 10/30/13 Resolved 11/04/2013 11/04/2013 8 10:33 AM WOOD BOAT BUILDER SUPERVISOR R/O COVID-19 12/25/2019 12/25/2019 12/26/2019 2:46 PM CDT R/O COVID-19 05/09/2020 05/09/2020 05/09/2020 12:1 7 PM WOOD BOAT BUILDER SUPERVISOR documented as of this encounter Care Teams Manager [employer] Retail Relationship Specialty Start Date End Date Dara Tavera FNP [address] [place] [phone] PCP - General NURSE PRACTITIONER 10/13/18 documented as of this encounter
--- OUTSIDE RECORDS SUMMARY | 2025-04-29 17:48 | XMS_ITS | Encounter Summary ---
Author Organization [facility] Address [address] [place] [address] Care Team Providers Care Car Dryer Name Role Phone Dara Tavera Primary Care Provider Encounter Details Date Type Department Care Team (Latest Contact Info) Description 02/11/2004 Outpatient Historical [facility] [address] [place] [address] AMBULANCE, [facility] NONPSYCHOTIC MENTAL DISORDER NOS (Primary Dx) Social History Tobacco Use Types Packs/Day Years Used Date Smoking Tobacco: Never Assessed Comments Unknown Sex and Gender Information Value Date Recorded Sex Assigned at Not on file Legal Sex Female 5:22 AM SANITARIAN AIDE Gender Identity Not on file Sexual Orientation Not on file documented as of this encounter Plan of Treatment Not on file documented as of this encounter Visit Diagnoses Diagnosis Unspecified nonpsychotic mental disorder- Primary documented in this encounter Additional Health Concerns Infection Onset Date Last Indicated Resolved Time VRE Comment:Urine 10/30/13 Resolved 11/04/2013 11/04/2013 8 10:33 AM SANITARIAN AIDE R/O COVID-19 12/25/2019 12/25/2019 12/26/2019 2:46 PM CDT R/O COVID-19 05/09/2020 05/09/2020 05/09/2020 12:1 7 PM SANITARIAN AIDE documented as of this encounter Care Teams Car Dryer Relationship Specialty Start Date End Date Dara Tavera FNP [address] [place] [phone] PCP - General NURSE PRACTITIONER 10/13/18 documented as of this encounter
--- OUTSIDE RECORDS SUMMARY | 2025-04-29 17:48 | XMS_ITS | Encounter Summary ---
Author Organization [facility] Address [address] [place] [address] Care Team Providers Care Drafter Electromechanical Name Role Phone Dara Tavera Primary Care Provider [phone] Encounter Details Date Type Department Care Team (Latest Contact Info) Description 08/15/2004 Outpatient Historical [facility] [address] [place] [address] AMBULANCE, [facility] SYNCOPE AND COLLAPSE (Primary Dx) Social History Tobacco Use Types Packs/Day Years Used Date Smoking Tobacco: Never Assessed Comments Unknown Sex and Gender Information Value Date Recorded Sex Assigned at Not on file Legal Sex Female 5:22 AM SMALLTALK DEVELOPER Gender Identity Not on file Sexual Orientation Not on file documented as of this encounter Plan of Treatment Not on file documented as of this encounter Visit Diagnoses Diagnosis Syncope and collapse- Primary documented in this encounter Additional Health Concerns Infection Onset Date Last Indicated Resolved Time VRE Comment:Urine 10/30/13 Resolved 11/04/2013 11/04/2013 8 10:33 AM SMALLTALK DEVELOPER R/O COVID-19 12/25/2019 12/25/2019 12/26/2019 2:4 6 PM CDT R/O COVID-19 05/09/2020 05/09/2020 05/09/2020 12:1 7 PM SMALLTALK DEVELOPER documented as of this encounter Care Teams Drafter Electromechanical Relationship Specialty Start Date End Date Dara Tavera FNP [address] [place] [phone] PCP - General NURSE PRACTITIONER 10/13/18 documented as of this encounter
--- OUTSIDE RECORDS SUMMARY | 2025-04-29 17:48 | XMS_ITS | Encounter Summary ---
Author Organization [facility] Address [address] [place] [address] Care Team Providers Care Internet Webmaster Name Role Phone Dara Tavera AMANDEEP Primary Care Provider Encounter Details Date Type Department Care Team (Latest Contact Info) Description 12/08/2003 Inpatient Historical [facility] [address] [place] [id number] Robel Samuel MD [address] [place] [address] DRUG DEPRESSIVE SYNDROME (CMS/HCC) (Primary Dx) Social History Tobacco Use Types Packs/Day Years Used Date Smoking Tobacco: Never Assessed Comments Unknown Sex and Gender Information Value Date Recorded Sex Assigned at Not on file Legal Sex Female 5:22 AM LEASING SPECIALIST Gender Identity Not on file Sexual Orientation Not on file documented as of this encounter Plan of Treatment Not on file documented as of this encounter Visit Diagnoses Diagnosis 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/HCC)- Primary Drug-induced mood disorder documented in this encounter Additional Health Concerns Infection Onset Date Last Indicated Resolved Time VRE Comment:Urine 10/30/13 Resolved 11/04/2013 11/04/2013 8 10:33 AM LEASING SPECIALIST R/O COVID-19 12/25/2019 12/25/2019 12/26/2019 2:46 PM CDT R/O COVID-19 05/09/2020 05/09/2020 05/09/2020 12:1 7 PM LEASING SPECIALIST documented as of this encounter Care Teams Internet Webmaster Relationship Specialty Start Date End Date Dara Tavera FNP [address] [place] [phone] PCP - General NURSE PRACTITIONER 10/13/18 documented as of this encounter
--- OUTSIDE RECORDS SUMMARY | 2025-04-29 17:48 | XMS_ITS | Encounter Summary ---
Author Organization [facility] Address [address] [place] [address] Care Team Providers Care Stock Unloader Name Role Phone Dara Tavera Primary Care Provider [phone] Encounter Details Date Type Department Care Team (Latest Contact Info) Description 07/24/2004 Outpatient Historical [facility] [address] [place] [address] AMBULANCE, [facility] OTHER ALTERATION OF CONSCIOUSNESS (Primary Dx) Social History Tobacco Use Types Packs/Day Years Used Date Smoking Tobacco: Never Assessed Comments Unknown Sex and Gender Information Value Date Recorded Sex Assigned at Not on file Legal Sex Female 5:22 AM NEWS WIRE PHOTO OPERATOR Gender Identity Not on file Sexual Orientation Not on file documented as of this encounter Plan of Treatment Not on file documented as of this encounter Visit Diagnoses Diagnosis Other alteration of consciousness- Primary documented in this encounter Additional Health Concerns Infection Onset Date Last Indicated Resolved Time VRE Comment:Urine 10/30/13 Resolved 11/04/2013 11/04/2013 8 10:33 AM NEWS WIRE PHOTO OPERATOR R/O COVID-19 12/25/2019 12/25/2019 12/26/2019 2:46 PM CDT R/O COVID-19 05/09/2020 05/09/2020 05/09/2020 12:1 7 PM NEWS WIRE PHOTO OPERATOR documented as of this encounter Care Teams Stock Unloader Relationship Specialty Start Date End Date Dara Tavera FNP [address] [place] [phone] PCP - General NURSE PRACTITIONER 10/13/18 documented as of this encounter
--- OUTSIDE RECORDS SUMMARY | 2025-04-29 17:48 | XMS_ITS | Encounter Summary ---
Author Organization [facility] Address [address] [place] [address] Care Team Providers Care Stone Layer Name Role Phone Dara Tavera Primary Care Provider Encounter Details Date Type Department Care Team (Latest Contact Info) Description 05/20/2004 Outpatient Historical [facility] [address] [place] [address] AMBULANCE, [facility] CONVULSIONS, OTHER (CMS/HCC) (Primary Dx) Social History Tobacco Use Types Packs/Day Years Used Date Smoking Tobacco: Never Assessed Comments Unknown Sex and Gender Information Value Date Recorded Sex Assigned at Not on file Legal Sex Female 5:22 AM VP AD SALES WEST Gender Identity Not on file Sexual Orientation Not on file documented as of this encounter Plan of Treatment Not on file documented as of this encounter Visit Diagnoses Diagnosis Other convulsions- Primary documented in this encounter Additional Health Concerns Infection Onset Date Last Indicated Resolved Time VRE Comment:Urine 10/30/13 Resolved 11/04/2013 11/04/2013 8 10:33 AM VP AD SALES WEST R/O COVID-19 12/25/2019 12/25/2019 12/26/2019 2:46 PM CDT R/O COVID-19 05/09/2020 05/09/2020 05/09/2020 12:1 7 PM VP AD SALES WEST documented as of this encounter Care Teams Stone Layer Relationship Specialty Start Date End Date Dara Tavera FNP [address] [place] [phone] PCP - General NURSE PRACTITIONER 10/13/18 documented as of this encounter
--- OUTSIDE RECORDS SUMMARY | 2025-04-29 17:48 | XMS_ITS | Encounter Summary ---
Author Organization [facility] Address [address] [place] [address] Care Team Providers Care Steel Roller Name Role Phone Dara Tavera Primary Care Provider [phone] Encounter Details Date Type Department Care Team (Latest Contact Info) Description 01/21/2004 Outpatient Historical [facility] [address] [place] [address] AMBULANCE, [facility] CONVULSIONS, OTHER (CMS/HCC) (Primary Dx) Social History Tobacco Use Types Packs/Day Years Used Date Smoking Tobacco: Never Assessed Comments Unknown Sex and Gender Information Value Date Recorded Sex Assigned at Not on file Legal Sex Female 5:22 AM PRIVATE INQUIRY AGENT Gender Identity Not on file Sexual Orientation Not on file documented as of this encounter Plan of Treatment Not on file documented as of this encounter Visit Diagnoses Diagnosis Other convulsions- Primary documented in this encounter Additional Health Concerns Infection Onset Date Last Indicated Resolved Time VRE Comment:Urine 10/30/13 Resolved 11/04/2013 11/04/2013 8 10:33 AM PRIVATE INQUIRY AGENT R/O COVID-19 12/25/2019 12/25/2019 12/26/2019 2:46 PM CDT R/O COVID-19 05/09/2020 05/09/2020 05/09/2020 12:1 7 PM PRIVATE INQUIRY AGENT documented as of this encounter Care Teams Steel Roller Relationship Specialty Start Date End Date Dara Tavera FNP [address] [place] [address] PCP - General NURSE PRACTITIONER 10/13/18 documented as of this encounter
--- OUTSIDE RECORDS SUMMARY | 2025-04-29 17:49 | XMS_ITS | Encounter Summary ---
Author Organization [facility] Address [address] [place] [address] Care Team Providers Care Student Driving Instructor Name Role Phone Dara Tavera Primary Care Provider Encounter Details Date Type Department Care Team (Latest Contact Info) Description 01/25/2005 Outpatient [facility] Oral and Maxillo Surgery[address] [place] [address] Raleigh Bagley, PhD NO ADDRESS ON FILE Tooth eruption disturb (Primary Dx) Social History Tobacco Use Types Packs/Day Years Used Date Smoking Tobacco: Never Assessed Comments Unknown Sex and Gender Information Value Date Recorded Sex Assigned at Not on file Legal Sex Female 5:22 AM MAIL DISTRIBUTION SCHEME EXAMINER Gender Identity Not on file Sexual Orientation Not on file documented as of this encounter Plan of Treatment Not on file documented as of this encounter Visit Diagnoses Diagnosis Tooth eruption disturb- Primary Disturbances in tooth eruption documented in this encounter Additional Health Concerns Infection Onset Date Last Indicated Resolved Time VRE Comment:Urine 10/30/13 Resolved 11/04/2013 11/04/2013 8 10:33 AM MAIL DISTRIBUTION SCHEME EXAMINER R/O COVID-19 12/25/2019 12/25/2019 12/26/2019 2:46 PM CDT R/O COVID-19 05/09/2020 05/09/2020 05/09/2020 12:1 7 PM MAIL DISTRIBUTION SCHEME EXAMINER documented as of this encounter Care Teams Student Driving Instructor Relationship Specialty Start Date End Date Dara Tavera FNP [address] [place] [address] PCP - General NURSE PRACTITIONER 10/13/18 documented as of this encounter
--- OUTSIDE RECORDS SUMMARY | 2025-04-29 17:49 | XMS_ITS | Encounter Summary ---
Author Organization [facility] Address [address] [place] [address] Care Team Providers Care Operations Officer Trust Department Name Role Phone Dara Tavera Primary Care Provider [phone] Encounter Details Date Type Department Care Team (Latest Contact Info) Description 07/28/[address] Outpatient [address] [facility] PreAd[address] [place] [address] Hossein Blair MD NO ADDRESS ON FILE PREOP EXAM OTHER SPECIFIED (Primary Dx) Social History Tobacco Use Types Packs/Day Years Used Date Smoking Tobacco: Never Assessed Comments Unknown Sex and Gender Information Value Date Recorded Sex Assigned at Not on file Legal Sex Female 5:22 AM APPLICATION DEVELOPMENT CONSULTANT Gender Identity Not on file Sexual Orientation Not on file documented as of this encounter Plan of Treatment Not on file documented as of this encounter Visit Diagnoses Diagnosis Other specified pre-operative examination- Primary documented in this encounter Additional Health Concerns Infection Onset Date Last Indicated Resolved Time VRE Comment:Urine 10/30/13 Resolved 11/04/2013 11/04/2013 8 10:33 AM APPLICATION DEVELOPMENT CONSULTANT R/O COVID-19 12/25/2019 12/25/2019 12/26/2019 2:46 PM CDT R/O COVID-19 05/09/2020 05/09/2020 05/09/2020 12:1 7 PM APPLICATION DEVELOPMENT CONSULTANT documented as of this encounter Care Teams Operations Officer Trust Department Relationship Specialty Start Date End Date Dara Tavera FNP [address] [place] [address] PCP - General NURSE PRACTITIONER 10/13/18 documented as of this encounter
--- OUTSIDE RECORDS SUMMARY | 2025-04-29 17:49 | XMS_ITS | Encounter Summary ---
Author Organization [facility] Address [address] [place] [address] Care Team Providers Care Flexographic Press Plate Setter Name Role Phone Dara Tavera Primary Care Provider Encounter Details Date Type Department Care Team (Latest Contact Info) Description 11/08/2002 Outpatient Historical [facility] Operating Room [address] [place] [address] Dmitri Vega MD [address] [place] [address] BENIGN NEOPLASM TONGUE (Primary Dx) Social History Tobacco Use Types Packs/Day Years Used Date Smoking Tobacco: Never Assessed Comments Unknown Sex and Gender Information Value Date Recorded Sex Assigned at Not on file Legal Sex Female 5:22 AM REGISTRATION SCHEDULING SPECIALIST Gender Identity Not on file Sexual Orientation Not on file documented as of this encounter Plan of Treatment Not on file documented as of this encounter Visit Diagnoses Diagnosis Benign neoplasm of tongue- Primary documented in this encounter Additional Health Concerns Infection Onset Date Last Indicated Resolved Time VRE Comment:Urine 10/30/13 Resolved 11/04/2013 11/04/2013 8 10:33 AM REGISTRATION SCHEDULING SPECIALIST R/O COVID-19 12/25/2019 12/25/2019 12/26/2019 2:46 PM CDT R/O COVID-19 05/09/2020 05/09/2020 05/09/2020 12:1 7 PM REGISTRATION SCHEDULING SPECIALIST documented as of this encounter Care Teams Flexographic Press Plate Setter Relationship Specialty Start Date End Date Dara Tavera FNP [address] [place] [phone] PCP - General NURSE PRACTITIONER 10/13/18 documented as of this encounter
--- OUTSIDE RECORDS SUMMARY | 2025-04-29 17:49 | XMS_ITS | Encounter Summary ---
Author Organization [facility] Address [address] [place] [address] Care Team Providers Care Electronics Lead Name Role Phone Dara Tavera DIRECTOR NURSING SERVICE Primary Care Provider [phone] Encounter Details Date Type Department Care Team (Latest Contact Info) Description 12/04/[address] [facility] [address] [place] [address] Hood Kerr Jr., MD [address] [place] [address] SCHIZOAFFECTIVE-UNSP EC (CMS/HCC) (Primary Dx) Social History Tobacco Use Types Packs/Day Years Used Date Smoking Tobacco: Never Assessed Comments Unknown Sex and Gender Information Value Date Recorded Sex Assigned at Not on file Legal Sex Female 5:22 AM ABSTRACT MANAGER Gender Identity Not on file Sexual Orientation Not on file documented as of this encounter Plan of Treatment Not on file documented as of this encounter Visit Diagnoses Diagnosis Schizoaffective disorder, unspecified condition (CMS/HCC)- Primary Schizoaffective disorder, unspecified condition documented in this encounter Additional Health Concerns Infection Onset Date Last Indicated Resolved Time VRE Comment:Urine 10/30/13 Resolved 11/04/2013 11/04/2013 8 10:33 AM ABSTRACT MANAGER R/O COVID-19 12/25/2019 12/25/2019 12/26/2019 2:46 PM CDT R/O COVID-19 05/09/2020 05/09/2020 05/09/2020 12:1 7 PM ABSTRACT MANAGER documented as of this encounter Care Teams Electronics Lead Relationship Specialty Start Date End Date Dara Tavera FNP [address] [place] [address] PCP - General NURSE PRACTITIONER 10/13/18 documented as of this encounter
--- OUTSIDE RECORDS SUMMARY | 2025-04-29 17:49 | XMS_ITS | Encounter Summary ---
Author Organization [facility] Address [address] [place] [address] Care Team Providers Care Agent Spa Desk Name Role Phone Dara Tavera Primary Care Provider [phone] Encounter Details Date Type Department Care Team (Latest Contact Info) Description 08/14/[address] [facility] Urology- [address]tr[address], 3[address] [place] [address] Hossein Blair MD NO ADDRESS ON FILE FEMALE STRESS INCONTINENCE (Primary Dx) Social History Tobacco Use Types Packs/Day Years Used Date Smoking Tobacco: Never Assessed Comments Unknown Sex and Gender Information Value Date Recorded Sex Assigned at Not on file Legal Sex Female 5:22 AM MANAGER OF SCHOOL Gender Identity Not on file Sexual Orientation Not on file documented as of this encounter Plan of Treatment Not on file documented as of this encounter Visit Diagnoses Diagnosis Female stress incontinence- Primary documented in this encounter Additional Health Concerns Infection Onset Date Last Indicated Resolved Time VRE Comment:Urine 10/30/13 Resolved 11/04/2013 11/04/2013 8 10:33 AM MANAGER OF SCHOOL R/O COVID-19 12/25/2019 12/25/2019 12/26/2019 2:46 PM CDT R/O COVID-19 05/09/2020 05/09/2020 05/09/2020 12:1 7 PM MANAGER OF SCHOOL documented as of this encounter Care Teams Agent Spa Desk Relationship Specialty Start Date End Date Dara Tavera FNP [address] [place] [address] PCP - General NURSE PRACTITIONER 10/13/18 documented as of this encounter
--- OUTSIDE RECORDS SUMMARY | 2025-04-29 17:49 | XMS_ITS | Encounter Summary ---
Author Organization [facility] Address [address] [place] [address] Care Team Providers Care Fork Truck Operator Name Role Phone Dara Tavera Primary Care Provider Encounter Details Date Type Department Care Team (Latest Contact Info) Description 11/08/2002 Outpatient Historical [facility] Ear, Nose and Throat 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
--- OUTSIDE RECORDS SUMMARY | 2025-04-29 17:49 | XMS_ITS | Encounter Summary ---
Author Organization [facility] Address [address] [place] [address] Care Team Providers Care Controller Operations And Hr Manager Name Role Phone Dara Tavera Primary Care Provider Encounter Details Date Type Department Care Team (Latest Contact Info) Description 07/17/2003 Outpatient Historical [facility] Urology- [address]tr[address], 3[address] [place] [address] Hossein Blair MD NO ADDRESS ON FILE URGE & STRESS MIXED INCONTINENCE (Primary Dx); FB bladder/urethra Social History Tobacco Use Types Packs/Day Years Used Date Smoking Tobacco: Never Assessed Comments Unknown Sex and Gender Information Value Date Recorded Sex Assigned at Not on file Legal Sex Female 5:22 AM COOK MORNING Gender Identity Not on file Sexual Orientation [...] 10/30/13 Resolved 11/04/2013 11/04/2013 8 10:33 AM COOK MORNING R/O COVID-19 12/25/2019 12/25/2019 12/26/2019 2:46 PM CDT R/O COVID-19 05/09/2020 05/09/2020 05/09/2020 12:1 7 PM COOK MORNING documented as of this encounter Care Teams Controller Operations And Hr Manager Relationship Specialty Start Date End Date Dara Tavera FNP [address] [place] [phone] PCP - General NURSE PRACTITIONER 10/13/18 documented as of this encounter
--- OUTSIDE RECORDS SUMMARY | 2025-04-29 17:49 | XMS_ITS | Encounter Summary ---
Author Organization [facility] Address [address] [place] [address] Care Team Providers Care Heading Up Machine Operator Name Role Phone Dara Tavera Primary Care Provider Encounter Details Date Type Department Care Team (Latest Contact Info) Description 05/16/2005 Outpatient Historical [facility] Pain Management Procedures [address] [place] [address] Prasad Carpenter MD NO ADDRESS ON FILE DISORDERS OF SACRUM (Primary Dx) Social History Tobacco Use Types Packs/Day Years Used Date Smoking Tobacco: Never Assessed Comments Unknown Sex and Gender Information Value Date Recorded Sex Assigned at Not on file Legal Sex Female 5:22 AM TRANSITIONS MANAGER RN Gender Identity Not on file Sexual Orientation Not on file documented as of this encounter Plan of Treatment Not on file documented as of this encounter Visit Diagnoses Diagnosis Disorders of sacrum- Primary documented in this encounter Additional Health Concerns Infection Onset Date Last Indicated Resolved Time VRE Comment:Urine 10/30/13 Resolved 11/04/2013 11/04/2013 8 10:33 AM TRANSITIONS MANAGER RN R/O COVID-19 12/25/2019 12/25/2019 12/26/2019 2:46 PM CDT R/O COVID-19 05/09/2020 05/09/2020 05/09/2020 12:1 7 PM TRANSITIONS MANAGER RN documented as of this encounter Care Teams Heading Up Machine Operator Relationship Specialty Start Date End Date Dara Tavera FNP [address] [place] [address] PCP - General NURSE PRACTITIONER 10/13/18 documented as of this encounter
--- OUTSIDE RECORDS SUMMARY | 2025-04-29 17:49 | XMS_ITS | Encounter Summary ---
Author Organization [facility] Address [address]: [place] [address] Care Team Providers Care Coal Wheeler Name Role Phone Dara Tavera Primary Care Provider Encounter Details Date Type Department Care Team ([facility] Contact Info) Description 10/29/2001 Outpatient Historical Non-Staff, Physician NO ADDRESS ON FILE Social History Tobacco Use Types Packs/Day Years Used Date Smoking Tobacco: Never Assessed Comments Unknown Sex and Gender Information Value Date Recorded Sex Assigned at Not on file Legal Sex Female 5:22 AM RELIEF SALESPERSON Gender Identity Not on file Sexual Orientation Not on file documented as of this encounter Plan of Treatment Not on file documented as of this encounter Visit Diagnoses Not on filedocumented in this encounter Additional Health Concerns Infection Onset Date Last Indicated Resolved Time VRE Comment:Urine 10/30/13 Resolved 11/04/2013 11/04/2013 8 10:33 AM RELIEF SALESPERSON R/O COVID-19 12/25/2019 12/25/2019 12/26/2019 2:46 PM CDT R/O COVID-19 05/09/2020 05/09/2020 05/09/2020 12:1 7 PM RELIEF SALESPERSON documented as of this encounter Care Teams Coal Wheeler Relationship Specialty Start Date End Date Dara Tavera FNP [address] [place] [address] PCP - General NURSE PRACTITIONER 10/13/18 documented as of this encounter
--- OUTSIDE RECORDS SUMMARY | 2025-04-29 17:49 | XMS_ITS | Encounter Summary ---
Author Organization [facility] Address [address] [place] [address] Care Team Providers Care Bleacher Lard Name Role Phone Dara Tavera BOOTS AND SHOES SUPERVISOR Primary Care Provider Encounter Details Date Type Department Care Team (Latest Contact Info) Description 09/03/2003 Outpatient Historical [facility] Behavioral Clinical Services [address] [place] [address] Hood Kerr Jr., MD [address] [place] [address] SCHIZOAFFECTIVE-UNSP EC (CMS/HCC) (Primary Dx) Social History Tobacco Use Types Packs/Day Years Used Date Smoking Tobacco: Never Assessed Comments Unknown Sex and Gender Information Value Date Recorded Sex Assigned at Not on file Legal Sex Female 5:22 AM CHILD CARE CENTRE MANAGER Gender Identity Not on file Sexual Orientation Not on file documented as of this encounter Plan of Treatment Not on file documented as of this encounter Visit Diagnoses Diagnosis Schizoaffective disorder, unspecified condition (CMS/HCC)- Primary Schizoaffective disorder, unspecified condition documented in this encounter Additional Health Concerns Infection Onset Date Last Indicated Resolved Time VRE Comment:Urine 10/30/13 Resolved 11/04/2013 11/04/2013 8 10:33 AM CHILD CARE CENTRE MANAGER R/O COVID-19 12/25/2019 12/25/2019 12/26/2019 2:46 PM CDT R/O COVID-19 05/09/2020 05/09/2020 05/09/2020 12:1 7 PM CHILD CARE CENTRE MANAGER documented as of this encounter Care Teams Bleacher Lard Relationship Specialty Start Date End Date Dara Tavera FNP [address] [place] [phone] PCP - General NURSE PRACTITIONER 10/13/18 documented as of this encounter
--- OUTSIDE RECORDS SUMMARY | 2025-04-29 17:49 | XMS_ITS | Encounter Summary ---
Author Organization [facility] Address [address] [place] [address] Care Team Providers Care Site Foreman Name Role Phone Dara Tavera Primary Care [...] file Legal Sex Female 5:22 AM MACHINE STONE POLISHER APPRENTICE Gender Identity Not on file Sexual Orientation Not on file documented as of this encounter Plan of Treatment Not on file documented as of this encounter Visit Diagnoses Not on filedocumented in this encounter Additional Health Concerns Infection Onset Date Last Indicated Resolved Time VRE Comment:Urine 10/30/13 Resolved 11/04/2013 11/04/2013 8 10:33 AM MACHINE STONE POLISHER APPRENTICE R/O COVID-19 12/25/2019 12/25/2019 12/26/2019 2:46 PM CDT R/O COVID-19 05/09/2020 05/09/2020 05/09/2020 12:1 7 PM MACHINE STONE POLISHER APPRENTICE documented as of this encounter Care Teams Site Foreman Relationship Specialty Start Date End Date Dara Tavera FNP [address] [place] [address] PCP - General NURSE PRACTITIONER 10/13/18 documented as of this encounter
--- OUTSIDE RECORDS SUMMARY | 2025-04-29 17:49 | XMS_ITS | Encounter Summary ---
Author Organization [facility] Address [address] [place] [address] Care Team Providers Care Geospatial Intelligence Analyst Name Role Phone Dara Tavera Primary Care Provider Encounter Details Date Type Department Care Team (Late st Contact Info) Description 02/22/2005 Outpatient Historical [facility] Medicine [place] [address] [facility] [address] [place] [address] Social History Tobacco Use Types Packs/Day Years Used Date Smoking Tobacco: Never Assessed Comments Unknown Sex and Gender Information Value Date Recorded Sex Assigned at Not on file Legal Sex Female 5:22 AM BOATSWAIN MATE Gender Identity Not on file Sexual Orientation Not on file documented as of this encounter Plan of Treatment Not on file documented as of this encounter Visit Diagnoses Not on filedocumented in this encounter Additional Health Concerns Infection Onset Date Last Indicated Resolved Time VRE Comment:Urine 10/30/13 Resolved 11/04/2013 11/04/2013 8 10:33 AM BOATSWAIN MATE R/O COVID-19 12/25/2019 12/25/2019 12/26/2019 2:46 PM CDT R/O COVID-19 05/09/2020 05/09/2020 05/09/2020 12:1 7 PM BOATSWAIN MATE documented as of this encounter Care Teams Geospatial Intelligence Analyst Relationship Specialty Start Date End Date Dara Tavera FNP [address] [place] [phone] PCP - General NURSE PRACTITIONER 10/13/18 documented as of this encounter
--- OUTSIDE RECORDS SUMMARY | 2025-04-29 17:49 | XMS_ITS | Encounter Summary ---
Author Organization [facility] Address [address] [place] [address] Care Team Providers Care Mosaicist Name Role Phone Dara Tavera Primary Care Provider [phone] Encounter Details Date Type Department Care Team (Latest Contact Info) Description 02/24/2005 Outpatient Historical [facility] [address] [facility] [address] [place] [address] Prasad Carpenter MD NO ADDRESS [...] documented as of this encounter Care Teams Mosaicist Relationship Specialty Start Date End Date Dara Tavera FNP [address] [place] [address] PCP - General NURSE PRACTITIONER 10/13/18 documented as of this encounter
--- OUTSIDE RECORDS SUMMARY | 2025-04-29 17:49 | XMS_ITS | Encounter Summary ---
Author Organization [facility] Address [address] [place] [address] Care Team Providers Care Accredited Farm Manager Name Role Phone Dara Tavera Primary Care Provider [phone] Encounter Details Date Type Department Care Team (Latest Contact Info) Description 12/09/2004 Outpatient Historical [facility] Family Medicine [place] [address] [facility] [address] [place] [address] Faiza Petersen MD NO ADDRESS ON FILE URIN TRACT INFECTION NOS (Primary Dx); ABDOMINAL PAIN UNSPEC SITE; ABDOMINAL TENDERNESS UNSP SITE Social History Tobacco Use Types Packs/Day Years Used Date Smoking Tobacco: Never Assessed Comments Unknown Sex and Gender Information Value Date Recorded Sex Assigned at Not on file Legal Sex Female 5:22 AM CITY DETECTIVE Gender Identity Not on file Sexual Orientation [...] Resolved 11/04/2013 11/04/2013 8 10:33 AM CITY DETECTIVE R/O COVID-19 12/25/2019 12/25/2019 12/26/2019 2:46 PM CDT R/O COVID-19 05/09/2020 05/09/2020 05/09/2020 12:1 7 PM CITY DETECTIVE documented as of this encounter Care Teams Accredited Farm Manager Relationship Specialty Start Date End Date Dara Tavera FNP [address] [place] [address] PCP - General NURSE PRACTITIONER 10/13/18 documented as of this encounter
--- OUTSIDE RECORDS SUMMARY | 2025-04-29 17:49 | XMS_ITS | Encounter Summary ---
Author Organization [facility] Address [address] [place] [address] Care Team Providers Care Whip Operator Name Role Phone Dara Tavera HYDRAULIC AND PLUMBING INSTALLER Primary Care Provider Encounter Details Date Type Department Care Team (Latest Contact Info) Description 02/10/2005 Outpatient Historical [facility] Medicine [place] [address] [facility] [address] [place] [address] Faiza Petersen MD NO ADDRESS ON FILE ALLERGIC RHINITIS NOS (Primary Dx); HEADACHE; AFTERCARE MINUTE CLERK USE MEDICATN; CONVULSIONS NEC ([facility] Social History Tobacco Use Types Packs/Day Years Used Date Smoking Tobacco: Never Assessed Comments Unknown Sex and Gender Information Value Date Recorded Sex Assigned at Not on file Legal Sex Female 5:22 AM PRODUCTION TECHNOLOGIST Gender Identity Not on file Sexual Orientation [...] 10/30/13 Resolved 11/04/2013 11/04/2013 8 10:33 AM PRODUCTION TECHNOLOGIST R/O COVID-19 12/25/2019 12/25/2019 12/26/2019 2:46 PM CDT R/O COVID-19 05/09/2020 05/09/2020 05/09/2020 12:1 7 PM PRODUCTION TECHNOLOGIST documented as of this encounter Care Teams Whip Operator Relationship Specialty Start Date End Date Dara Tavera FNP [address] [place] [phone] PCP - General NURSE PRACTITIONER 10/13/18 documented as of this encounter
--- OUTSIDE RECORDS SUMMARY | 2025-04-29 17:49 | XMS_ITS | Encounter Summary ---
Author Organization [facility] Address [address] [place] [address] Care Team Providers Care Associate Professor Of Engineering Name Role Phone Dara Tavera HAND QUILTER Primary Care Provider Encounter Details Date Type Department Care Team (Latest Contact Info) Description 11/05/2002 Outpatient [facility] Imaging and Laboratory Services [address] [place] [address] Raúl Osullivan MD [address] [place], [place] [address] OTHER FUNCTIONAL DISORDER BLADDER (Primary Dx) Social History Tobacco Use Types Packs/Day Years Used Date Smoking Tobacco: Never Assessed Comments Unknown Sex and Gender Information Value Date Recorded Sex Assigned at Not on file Legal Sex Female 5:22 AM TOOL STRAIGHTENER Gender Identity Not on file Sexual Orientation Not on file documented as of this encounter Plan of Treatment Not on file documented as of this encounter Visit Diagnoses Diagnosis Other functional disorder of bladder- Primary documented in this encounter Additional Health Concerns Infection Onset Date Last Indicated Resolved Time VRE Comment:Urine 10/30/13 Resolved 11/04/2013 11/04/2013 8 10:33 AM TOOL STRAIGHTENER R/O COVID-19 12/25/2019 12/25/2019 12/26/2019 2:46 PM CDT R/O COVID-19 05/09/2020 05/09/2020 05/09/2020 12:1 7 PM TOOL STRAIGHTENER documented as of this encounter Care Teams Associate Professor Of Engineering Relationship Specialty Start Date End Date Dara Tavera FNP [address] [place] [phone] PCP - General NURSE PRACTITIONER 10/13/18 documented as of this encounter
--- OUTSIDE RECORDS SUMMARY | 2025-04-29 17:49 | XMS_ITS | Encounter Summary ---
Author Organization [facility] Address [address] [place] [address] Care Team Providers Care Wrapping Machine Helper Name Role Phone Dara Tavera Primary Care Provider [phone] Encounter Details Date Type Department Care Team (Latest Contact Info) Description 03/07/2019 Ancillary Orders [facility] Centralized Scheduling [address] [place] [address] Dara Tavera FNP [address] [place] [address] Screening breast examination Social History Tobacco Use Types Packs/Day Years Used Date Smoking Tobacco: Every Day Cigarettes Smokeless Tobacco: Never Comments:2 cigarettes daily Alcohol Use Standard Drinks/Week Comments No 0 (1 standard drink = 0.6 oz pur e alcohol) Comments No Sex and Gender Information Value Date Recorded Sex Assigned at Not on file Legal Sex Female 5:22 AM MOTOR BIKE MECHANIC Gender Identity Not on file Sexual [...] 05/09/2020 05/09/2020 05/09/2020 12:1 7 PM MOTOR BIKE MECHANIC documented as of this encounter Care Teams Wrapping Machine Helper Relationship Specialty Start Date End Date Dara Tavera FNP [address] [place] [address] PCP - General NURSE PRACTITIONER 10/13/18 documented as of this encounter
--- OUTSIDE RECORDS SUMMARY | 2025-04-29 17:49 | XMS_ITS | Encounter Summary ---
Author Organization [facility] Address [address] [facility] Attn: [place] [address] Care Team Providers Care Tumbler Machine Operator Helper Name Role Phone Dara Tavera AMANDEEP Primary Care Provider Encounter Details Date Type Department Care Team (Late st Contact Info) Description 05/02/2003 Inpatient Historical Hood Kerr Jr., MD [address] [facility] [place] [address] SCHIZOAFF-SUBCHR/EXACER (CMS/[facility]) (Primary Dx) Social History Tobacco Use Types Packs/Day Years Used Date Smoking Tobacco: Never Assessed Comments Unknown Sex and Gender Information Value Date Recorded Sex Assigned at Not on file Legal Sex Female 5:22 AM APPLICATION SUPPORT CONSULTANT Gender Identity Not on file Sexual [...] Resolved 11/04/2013 11/04/2013 8 10:33 AM APPLICATION SUPPORT CONSULTANT R/O COVID-19 12/25/2019 12/25/2019 12/26/2019 2:46 PM CDT R/O COVID-19 05/09/2020 05/09/2020 05/09/2020 12:1 7 PM APPLICATION SUPPORT CONSULTANT documented as of this encounter Care Teams Tumbler Machine Operator Helper Relationship Specialty Start Date End Date Dara Tavera FNP [address] [place] [address] PCP - General NURSE PRACTITIONER 10/13/18 documented as of this encounter
--- OUTSIDE RECORDS SUMMARY | 2025-04-29 17:49 | XMS_ITS | Encounter Summary ---
Author Organization [facility] Address [address] [place] [address] Care Team Providers Care Pharmacy Teacher Name Role Phone Dara Tavera AMANDEEP Primary Care Provider [phone] Encounter Details Date Type Department Care Team (Latest Contact Info) Description 09/24/2002 Outpatient Historical [facility] Ear, Nose and Throat 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
--- OUTSIDE RECORDS SUMMARY | 2025-04-29 17:49 | XMS_ITS | Encounter Summary ---
Author Organization [facility] Address [address] [place] [address] Care Team Providers Care Grapple Skidder Operator Name Role Phone Dara Tavera Primary Care Provider Encounter Details Date Type Department Care Team (Latest Contact Info) Description 08/19/2003 Outpatient Historical [facility] Urology- [address]tr[address], 3rd [place] [address] Hossein Blair MD NO ADDRESS ON FILE FEMALE STRESS INCONTINENCE (Primary Dx); REMOVAL INT FIXATION DEVICE Social History Tobacco Use Types Packs/Day Years Used Date Smoking Tobacco: Never Assessed Comments Unknown Sex and Gender Information Value Date Recorded Sex Assigned at Not on file Legal Sex Female 5:22 AM ADVANCED SOLUTIONS ARCHITECT Gender Identity Not on file Sexual Orientation Not on file documented as of this encounter Plan of Treatment Not on file documented as of this encounter Visit Diagnoses Diagnosis Female stress incontinence- Primary Encounter for removal of internal fixation device documented in this encounter Additional Health Concerns Infection Onset Date Last Indicated Resolved Time VRE Comment:Urine 10/30/13 Resolved 11/04/2013 11/04/2013 8 10:33 AM ADVANCED SOLUTIONS ARCHITECT R/O COVID-19 12/25/2019 12/25/2019 12/26/2019 2:46 PM CDT R/O COVID-19 05/09/2020 05/09/2020 05/09/2020 12:1 7 PM ADVANCED SOLUTIONS ARCHITECT documented as of this encounter Care Teams Grapple Skidder Operator Relationship Specialty Start Date End Date Dara Tavera FNP [address] [place] [address] PCP - General NURSE PRACTITIONER 10/13/18 documented as of this encounter
--- OUTSIDE RECORDS SUMMARY | 2025-04-29 17:49 | XMS_ITS | Encounter Summary ---
Author Organization [facility] Address [address] [place] [address] Care Team Providers Care Computing Tutor Name Role Phone Dara Tavera Primary Care Provider [phone] Encounter Details Date Type Department Care Team (Late st Contact Info) Description 06/10/1997 Outpatient Historical [facility] Chio Lopez MD [address] [place] [address] Lumbago (Primary Dx) Social History Tobacco Use Types Packs/Day Years Used Date Smoking Tobacco: Never Assessed Comments Unknown Sex and Gender Information Value Date Recorded Sex Assigned at Not on file Legal Sex Female 5:22 AM LOCK ASSEMBLER Gender Identity Not on file Sexual Orientation Not on file documented as of this encounter Plan of Treatment Not on file documented as of this encounter Visit Diagnoses Diagnosis Lumbago- Primary documented in this encounter Additional Health Concerns Infection Onset Date Last Indicated Resolved Time VRE Comment:Urine 10/30/13 Resolved 11/04/2013 11/04/2013 8 10:33 AM LOCK ASSEMBLER R/O COVID-19 12/25/2019 12/25/2019 12/26/2019 2:46 PM CDT R/O COVID-19 05/09/2020 05/09/2020 05/09/2020 12:1 7 PM LOCK ASSEMBLER documented as of this encounter Care Teams Computing Tutor Relationship Specialty Start Date End Date Dara Tavera FNP [address] [place] [address] PCP - General NURSE PRACTITIONER 10/13/18 documented as of this encounter
--- OUTSIDE RECORDS SUMMARY | 2025-04-29 17:49 | XMS_ITS | Encounter Summary ---
Author Organization [facility] Address [address] [facility] Attn: [place] [address] Care Team Providers Care English Horn Player Name Role Phone Dara Tavera Primary Care Provider [phone] Encounter Details Date Type Department Care Team ([facility] Contact Info) Description 02/13/2003 Inpatient Historical Oniel Upton MD NO ADDRESS ON FILE ACUTE SCHIZOPHRENIA-CHR (CMS/HCC) (Primary Dx) Social History Tobacco Use Types Packs/Day Years Used Date Smoking Tobacco: Never Assessed Comments Unknown Sex and Gender Information Value Date Recorded Sex Assigned at Not on file Legal Sex Female 5:22 AM WHITE[place]ATER RIVER GUIDE Gender Identity Not on file Sexual Orientation Not on file documented as of this encounter Plan of Treatment Not on file documented as of this encounter Visit Diagnoses Diagnosis Schizophreniform disorder, chronic condition (CMS/HCC)- Primary Schizophreniform disorder, chronic condition documented in this encounter Additional Health Concerns Infection Onset Date Last Indicated Resolved Time VRE Comment:Urine 10/30/13 Resolved 11/04/2013 11/04/2013 8 10:33 AM WH[place] RIVER GUIDE R/O COVID-19 12/25/2019 12/25/2019 12/26/2019 2:46 PM CDT R/O COVID-19 05/09/2020 05/09/2020 05/09/2020 12:1 7 PM WHITEWATER RIVER GUIDE documented as of this encounter Care Teams English Horn Player Relationship Specialty Start Date End Date Dara Tavera FNP [address] [place] [address] PCP - General NURSE PRACTITIONER 10/13/18 documented as of this encounter
--- OUTSIDE RECORDS SUMMARY | 2025-04-29 17:49 | XMS_ITS | Encounter Summary ---
Author Organization [facility] Address [address] [place] [address] Care Team Providers Care Business Sales Consultant Name Role Phone Dara Tavera Primary Care Provider Encounter Details Date Type Department Care Team (Latest Contact Info) Description 11/25/2004 Outpatient Historical [facility] [address] [place] [address] AMBULANCE, [facility] NONPSYCHOTIC MENTAL DISORDER NOS (Primary Dx) Social History Tobacco Use Types Packs/Day Years Used Date Smoking Tobacco: Never Assessed Comments Unknown Sex and Gender Information Value Date Recorded Sex Assigned at Not on file Legal Sex Female 5:22 AM MINIATURE SET BUILDER Gender Identity Not on file Sexual Orientation Not on file documented as of this encounter Plan of Treatment Not on file documented as of this encounter Visit Diagnoses Diagnosis Unspecified nonpsychotic mental disorder- Primary documented in this encounter Additional Health Concerns Infection Onset Date Last Indicated Resolved Time VRE Comment:Urine 10/30/13 Resolved 11/04/2013 11/04/2013 8 10:33 AM MINIATURE SET BUILDER R/O COVID-19 12/25/2019 12/25/2019 12/26/2019 2:46 PM CDT R/O COVID-19 05/09/2020 05/09/2020 05/09/2020 12:1 7 PM MINIATURE SET BUILDER documented as of this encounter Care Teams Business Sales Consultant Relationship Specialty Start Date End Date Dara Tavera FNP [address] [place] [phone] PCP - General NURSE PRACTITIONER 10/13/18 documented as of this encounter
--- OUTSIDE RECORDS SUMMARY | 2025-04-29 17:49 | XMS_ITS | Encounter Summary ---
Author Organization [facility] Address [address] [facility] [address]: [place] [address] Care Team Providers Care Civil Engineer Land Development Name Role Phone Dara Tavera Primary Care Provider Encounter Details Date Type Department Care Team ([facility] st Contact Info) Description 01/17/2001 Outpatient Historical Non-Staff, Physician NO ADDRESS ON FILE Social History Tobacco Use Types Packs/Day Years Used Date Smoking Tobacco: Never Assessed Comments Unknown Sex and Gender Information Value Date Recorded Sex Assigned at Not on file Legal Sex Female 5:22 AM LEAD INSTALLER Gender Identity Not on file Sexual Orientation Not on file documented as of this encounter Plan of Treatment Not on file documented as of this encounter Visit Diagnoses Not on filedocumented in this encounter Additional Health Concerns Infection Onset Date Last Indicated Resolved Time VRE Comment:Urine 10/30/13 Resolved 11/04/2013 11/04/2013 8 10:33 AM LEAD INSTALLER R/O COVID-19 12/25/2019 12/25/2019 12/26/2019 2:46 PM CDT R/O COVID-19 05/09/2020 05/09/2020 05/09/2020 12:1 7 PM LEAD INSTALLER documented as of this encounter Care Teams Civil Engineer Land Development Relationship Specialty Start Date End Date Dara Tavera FNP [address] [place] [address] PCP - General NURSE PRACTITIONER 10/13/18 documented as of this encounter
--- OUTSIDE RECORDS SUMMARY | 2025-04-29 17:49 | XMS_ITS | Encounter Summary ---
Author Organization [facility] Address [address] [place] [address] Care Team Providers Care Hand Assembler For Puller Over Name Role Phone Dara Tavera SCRAP BUNCH MAKER Primary Care Provider Encounter Details Date Type Department Care Team (Latest Contact Info) Description 11/03/2003 Outpatient Historical [facility] Behavioral Clinical Services [address] [place] [address] Hood Kerr Jr., MD [address] [place] [address] SCHIZOAFFECTIVE-UNSP EC (CMS/HCC) (Primary Dx) Social History Tobacco Use Types Packs/Day Years Used Date Smoking Tobacco: Never Assessed Comments Unknown Sex and Gender Information Value Date Recorded Sex Assigned at Not on file Legal Sex Female 5:22 AM FIRE ALARM DISPATCHER Gender Identity Not on file Sexual [...] Resolved 11/04/2013 11/04/2013 8 10:33 AM FIRE ALARM DISPATCHER R/O COVID-19 12/25/2019 12/25/2019 12/26/2019 2:46 PM CDT R/O COVID-19 05/09/2020 05/09/2020 05/09/2020 12:1 7 PM FIRE ALARM DISPATCHER documented as of this encounter Care Teams Hand Assembler For Puller Over Relationship Specialty Start Date End Date Dara Tavera FNP [address] [place] [phone] PCP - General NURSE PRACTITIONER 10/13/18 documented as of this encounter
--- OUTSIDE RECORDS SUMMARY | 2025-04-29 17:49 | XMS_ITS | Encounter Summary ---
Author Organization [facility] Address [address] [place] [address] Care Team Providers Care Supervisor Electronic Testing Name Role Phone Dara Tavera Primary Care Provider [phone] Encounter Details Date Type Department Care Team (Late st Contact Info) Description 05/30/2005 Outpatient [facility] [address] [place] [address] Social History Tobacco Use Types Packs/Day Years Used Date Smoking Tobacco: Never Assessed Comments Unknown Sex and Gender Information Value Date Recorded Sex Assigned at Not on file Legal Sex Female 5:22 AM AUTOMOTIVE LIGHT MECHANIC Gender Identity Not on file Sexual Orientation Not on file documented as of this encounter Plan of Treatment Not on file documented as of this encounter Visit Diagnoses Not on filedocumented in this encounter Additional Health Concerns Infection Onset Date Last Indicated Resolved Time VRE Comment:Urine 10/30/13 Resolved 11/04/2013 11/04/2013 8 10:33 AM AUTOMOTIVE LIGHT MECHANIC R/O COVID-19 12/25/2019 12/25/2019 12/26/2019 2:46 PM CDT R/O COVID-19 05/09/2020 05/09/2020 05/09/2020 12:1 7 PM AUTOMOTIVE LIGHT MECHANIC documented as of this encounter Care Teams Supervisor Electronic Testing Relationship Specialty Start Date End Date Dara Tavera FNP [address] [place] [phone] PCP - General NURSE PRACTITIONER 10/13/18 documented as of this encounter
--- OUTSIDE RECORDS SUMMARY | 2025-04-29 17:49 | XMS_ITS | Encounter Summary ---
Author Organization [facility] Address [address] [place] [address] Care Team Providers Care Photogrammetric Engineer Name Role Phone Dara Tavera AMANDEEP Primary Care Provider Encounter Details Date Type Department Care Team (Latest Contact Info) Description 11/04/2002 Outpatient Historical [facility] Ear, Nose and Throat [place] [address] 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
--- OUTSIDE RECORDS SUMMARY | 2025-04-29 17:49 | XMS_ITS | Encounter Summary ---
Author Organization [facility] Address [address] [place] [address] Care Team Providers Care Electric Deicer Inspector Name Role Phone Dara Tavera Primary Care Provider Encounter Details Date Type Department Care Team (Late st Contact Info) Description 12/05/2003 Outpatient Historical [facility] Behavioral Clinical Services [address] [place] [address] Hood Kerr Jr., MD [address] [place] [address] Social History Tobacco Use Types Packs/Day Years Used Date Smoking Tobacco: Never Assessed Comments Unknown Sex and Gender Information Value Date Recorded Sex Assigned at Not on file Legal Sex Female 5:22 AM TABLET COATER Gender Identity Not on file Sexual Orientation Not on file documented as of this encounter Plan of Treatment Not on file documented as of this encounter Visit Diagnoses Not on filedocumented in this encounter Additional Health Concerns Infection Onset Date Last Indicated Resolved Time VRE Comment:Urine 10/30/13 Resolved 11/04/2013 11/04/2013 8 10:33 AM TABLET COATER R/O COVID-19 12/25/2019 12/25/2019 12/26/2019 2:46 PM CDT R/O COVID-19 05/09/2020 05/09/2020 05/09/2020 12:1 7 PM TABLET COATER documented as of this encounter Care Teams Electric Deicer Inspector Relationship Specialty Start Date End Date Dara Tavera FNP [address] [place] [phone] PCP - General NURSE PRACTITIONER 10/13/18 documented as of this encounter
--- OUTSIDE RECORDS SUMMARY | 2025-04-29 17:49 | XMS_ITS | Encounter Summary ---
Author Organization [facility] Address [address] [place] [address] Care Team Providers Care Tax Examining Technician Name Role Phone Dara Tavera Primary Care Provider Encounter Details Date Type Department Care Team (Latest Contact Info) Description 12/01/2004 Outpatient Historical [facility] Medicine [place] [address] [facility] [address] [place] [address] Faiza Petersen MD NO ADDRESS ON FILE FEM PELV INFLAM DIS NOS (Primary Dx); ABDOMINAL PAIN UNSPEC SITE Social History Tobacco Use Types Packs/Day Years Used Date Smoking Tobacco: Never Assessed Comments Unknown Sex and Gender Information Value Date Recorded Sex Assigned at Not on file Legal Sex Female 5:22 AM BUNG SEWER Gender Identity Not on file Sexual Orientation [...] 10/30/13 Resolved 11/04/2013 11/04/2013 8 10:33 AM BUNG SEWER R/O COVID-19 12/25/2019 12/25/2019 12/26/2019 2:46 PM CDT R/O COVID-19 05/09/2020 05/09/2020 05/09/2020 12:1 7 PM BUNG SEWER documented as of this encounter Care Teams Tax Examining Technician Relationship Specialty Start Date End Date Dara Tavera FNP [address] [place] [address] PCP - General NURSE PRACTITIONER 10/13/18 documented as of this encounter
--- OUTSIDE RECORDS SUMMARY | 2025-04-29 17:49 | XMS_ITS | Encounter Summary ---
Author Organization [facility] Address [address] [place] [address] Care Team Providers Care Billiard Table Mechanic Name Role Phone aDra Tavera [facility] Primary Care Provider Encounter Details Date Type Department Care Team (Latest Contact Info) Description 04/28/2005 Outpatient Historical [facility] Pain Management- [place] [address] [place] [address] Krissy Pickard FNP [address] [place], [place] [address] [address] [place] [address] LUMBAGO (Primary Dx); LUMBOSACRAL NEURITIS NOS; Enthesopathy of hip Social History Tobacco Use Types Packs/Day Years Used Date Smoking Tobacco: Never Assessed Comments Unknown Sex and Gender Information Value Date Recorded Sex Assigned at Not on file Legal Sex Female 5:22 AM COMMERCIAL LINES INSURANCE AGENT Gender Identity Not on file Sexual [...] Resolved 11/04/2013 11/04/2013 8 10:33 AM COMMERCIAL LINES INSURANCE AGENT R/O COVID-19 12/25/2019 12/25/2019 12/26/2019 2:46 PM CDT R/O COVID-19 05/09/2020 05/09/2020 05/09/2020 12:1 7 PM COMMERCIAL LINES INSURANCE AGENT documented as of this encounter Care Teams Billiard Table Mechanic Relationship Specialty Start Date End Date Dara Tavera FNP [address] [place] [address] PCP - General NURSE PRACTITIONER 10/13/18 documented as of this encounter
--- OUTSIDE RECORDS SUMMARY | 2025-04-29 17:49 | XMS_ITS | Encounter Summary ---
Author Organization [facility] Address [address] [place] [address] Care Team Providers Care Senior Audit Manager Name Role Phone Dara Tavera Primary Care Provider [phone] Encounter Details Date Type Department Care Team (Latest Contact Info) Description 09/25/2003 Outpatient Historical [facility] Urology- [address]tr[address], 3rd [place] [address] Hossein Blair MD NO ADDRESS ON FILE URGE & STRESS MIXED INCONTINENCE (Primary Dx) Social History Tobacco Use Types Packs/Day Years Used Date Smoking Tobacco: Never Assessed Comments Unknown Sex and Gender Information Value Date Recorded Sex Assigned at Not on file Legal Sex Female 5:22 AM PUMPMAN Gender Identity Not on file Sexual Orientation Not on file documented as of this encounter Plan of Treatment Not on file documented as of this encounter Visit Diagnoses Diagnosis Mixed incontinence urge and stress (male)(female)- Primary documented in this encounter Additional Health Concerns Infection Onset Date Last Indicated Resolved Time VRE Comment:Urine 10/30/13 Resolved 11/04/2013 11/04/2013 8 10:33 AM PUMPMAN R/O COVID-19 12/25/2019 12/25/2019 12/26/2019 2:46 PM CDT R/O COVID-19 05/09/2020 05/09/2020 05/09/2020 12:1 7 PM PUMPMAN documented as of this encounter Care Teams Senior Audit Manager Relationship Specialty Start Date End Date Dara Tavera FNP [address] [place] [address] PCP - General NURSE PRACTITIONER 10/13/18 documented as of this encounter
--- OUTSIDE RECORDS SUMMARY | 2025-04-29 17:49 | XMS_ITS | Encounter Summary ---
Author Organization [facility] Address [address] [place] [address] Care Team Providers Care Casting Room Helper Name Role Phone Dara Tavera Primary Care Provider Encounter Details Date Type Department Care Team (Latest Contact Info) Description 07/31/2003 Inpatient Historical [facility] Operating Room [address] [place] [address] Hossein Blair MD NO ADDRESS ON FILE FB BLADDER & URETHRA (Primary Dx) Social History Tobacco Use Types Packs/Day Years Used Date Smoking Tobacco: Never Assessed Comments Unknown Sex and Gender Information Value Date Recorded Sex Assigned at Not on file Legal Sex Female 5:22 AM DAIRY FARMWORKER Gender Identity Not on file Sexual Orientation Not on file documented as of this encounter Plan of Treatment Not on file documented as of this encounter Visit Diagnoses Diagnosis Foreign body in bladder and urethra- Primary documented in this encounter Additional Health Concerns Infection Onset Date Last Indicated Resolved Time VRE Comment:Urine 10/30/13 Resolved 11/04/2013 11/04/2013 8 10:33 AM DAIRY FARMWORKER R/O COVID-19 12/25/2019 12/25/2019 12/26/2019 2:46 PM CDT R/O COVID-19 05/09/2020 05/09/2020 05/09/2020 12:1 7 PM DAIRY FARMWORKER documented as of this encounter Care Teams Casting Room Helper Relationship Specialty Start Date End Date Dara Tavera FNP [address] [place] [address] PCP - General NURSE PRACTITIONER 10/13/18 documented as of this encounter
--- OUTSIDE RECORDS SUMMARY | 2025-04-29 17:49 | XMS_ITS | Encounter Summary ---
Author Organization [facility] Address [address] [place] [address] Care Team Providers Care National Expansion Recruiter Name Role Phone Dara Tavera Primary Care [...] on file Legal Sex Female 5:22 AM CERTIFIED ALCOHOL AND DRUG COUNSELOR Gender Identity Not on file Sexual Orientation Not on file documented as of this encounter Plan of Treatment Not on file documented as of this encounter Visit Diagnoses Not on filedocumented in this encounter Additional Health Concerns Infection Onset Date Last Indicated Resolved Time VRE Comment:Urine 10/30/13 Resolved 11/04/2013 11/04/2013 8 10:33 AM CERTIFIED ALCOHOL AND DRUG COUNSELOR R/O COVID-19 12/25/2019 12/25/2019 12/26/2019 2:46 PM CDT R/O COVID-19 05/09/2020 05/09/2020 05/09/2020 12:1 7 PM CERTIFIED ALCOHOL AND DRUG COUNSELOR documented as of this encounter Care Teams National Expansion Recruiter Relationship Specialty Start Date End Date Dara Tavera FNP [address] [place] [address] PCP - General NURSE PRACTITIONER 10/13/18 documented as of this encounter
--- OUTSIDE RECORDS SUMMARY | 2025-04-29 17:49 | XMS_ITS | Encounter Summary ---
Author Organization [facility] Address [address] [place] [address] Care Team Providers Care Leaflet Or Newspaper Deliverer Name Role Phone Dara Tavera STONEWORK SUPERVISOR Primary Care Provider Encounter Details Date Type Department Care Team (Latest Contact Info) Description 10/04/2003 Outpatient Historical [facility] Behavioral Clinical Services [address] [place] [address] Hood Kerr Jr., MD [address] [place] [address] SCHIZOAFFECTIVE-UNSP EC (CMS/HCC) (Primary Dx) Social History Tobacco Use Types Packs/Day Years Used Date Smoking Tobacco: Never Assessed Comments Unknown Sex and Gender Information Value Date Recorded Sex Assigned at Not on file Legal Sex Female 5:22 AM CELERY WRAPPER Gender Identity Not on file Sexual Orientation Not on file documented as of this encounter Plan of Treatment Not on file documented as of this encounter Visit Diagnoses Diagnosis Schizoaffective disorder, unspecified condition (CMS/HCC)- Primary Schizoaffective disorder, unspecified condition documented in this encounter Additional Health Concerns Infection Onset Date Last Indicated Resolved Time VRE Comment:Urine 10/30/13 Resolved 11/04/2013 11/04/2013 8 10:33 AM CELERY WRAPPER R/O COVID-19 12/25/2019 12/25/2019 12/26/2019 2:46 PM CDT R/O COVID-19 05/09/2020 05/09/2020 05/09/2020 12:1 7 PM CELERY WRAPPER documented as of this encounter Care Teams Leaflet Or Newspaper Deliverer Relationship Specialty Start Date End Date Dara Tavera FNP [address] [place] [address] PCP - General NURSE PRACTITIONER 10/13/18 documented as of this encounter
--- OUTSIDE RECORDS SUMMARY | 2025-04-29 17:49 | XMS_ITS | Encounter Summary ---
Author Organization [facility] Address [address] [place] [address] Care Team Providers Care Hydro Technician Name Role Phone Dara Tavera Primary Care Provider Encounter Details Date Type Department Care Team (Latest Contact Info) Description 03/07/2005 Outpatient Historical [facility] Pain Management Procedures [address] [place] [address] Prasad Carpenter MD NO ADDRESS ON FILE LUMBOSACRAL NEURITIS NOS (Primary Dx) Social History Tobacco Use Types Packs/Day Years Used Date Smoking Tobacco: Never Assessed Comments Unknown Sex and Gender Information Value Date Recorded Sex Assigned at Not on file Legal Sex Female 5:22 AM OPERATING ROOM AIDE Gender Identity Not on file Sexual Orientation Not on file documented as of this encounter Plan of Treatment Not on file documented as of this encounter Visit Diagnoses Diagnosis Thoracic or lumbosacral neuritis or radiculitis, unspecified- Primary documented in this encounter Additional Health Concerns Infection Onset Date Last Indicated Resolved Time VRE Comment:Urine 10/30/13 Resolved 11/04/2013 11/04/2013 8 10:33 AM OPERATING ROOM AIDE R/O COVID-19 12/25/2019 12/25/2019 12/26/2019 2:46 PM CDT R/O COVID-19 05/09/2020 05/09/2020 05/09/2020 12:1 7 PM OPERATING ROOM AIDE documented as of this encounter Care Teams Hydro Technician Relationship Specialty Start Date End Date Dara Tavera FNP [address] [place] [address] PCP - General NURSE PRACTITIONER 10/13/18 documented as of this encounter
--- OUTSIDE RECORDS SUMMARY | 2025-04-29 17:49 | XMS_ITS | Encounter Summary ---
Author Organization [email or web address] Address [address] [place] [address] Care Team Providers Care Dredge Runner Name Role Phone Dara Tavera CHILD DEVELOPMENT CONSULTANT Primary Care Provider Encounter Details Date Type Department Care Team (Late st Contact Info) Description 10/24/2011 Ancillary Orders [facility] [address] [place] [address] Raleigh Najera MD NO ADDRESS [...] file Legal Sex Female 5:22 AM HAND COMPOSITOR Gender Identity Not on file Sexual Orientation [...] acute changes seen jaw - transcribed in [facility] 10/26/2011 11:18 AM CDT ATTENTION: This replaces accession number [id number]. DESCRIPTION: AP view of the pelvis 4May 2011 shows several VersaTac spiral staple postoperative artifacts in the left inguinal region. Pelvic soft tissues appear unremarkable. The bones of the pelvis appear intact. Procedure Note Andre Vega MD - 10/26/2011 ATTENTION: This replaces accession number [id number]. DESCRIPTION: AP view of the pelvis 4May 2011 shows several VersaTac spiral staple postoperative artifacts in the left inguinal region. Pelvic soft tissues appear unremarkable. The bones of the pelvis appear intact. IMPRESSION no acute changes seen jaw - transcribed in [facility] - us Raleigh Najera MD DIAGNOSTIC IMAGING ORDERABLE S Final Result * XR LUMBAR SPINE 2 OR 3 VW (10/21/2011 2:05 PM CDT) Anatomical Region Laterality Modality Spine Computed Radiogr aphy Impressions 10/26/2011 11:18 AM CDT 1. mild arthritic change 2. no acute changes seen jaw - transcribed in [facility] 10/26/2011 11:18 AM CDT ATTENTION: This replaces accession number [id number]. DESCRIPTION: AP and lateral lumbar spine views [...] - 10/26/2011 ATTENTION: This replaces accession number [id number]. DESCRIPTION: AP and lateral lumbar spine views [...] 10/30/13 Resolved 11/04/2013 11/04/2013 8 10:33 AM HAND COMPOSITOR R/O COVID-19 12/25/2019 12/25/2019 12/26/2019 2:46 PM CDT R/O COVID-19 05/09/2020 05/09/2020 05/09/2020 12:1 7 PM HAND COMPOSITOR documented as of this encounter Care Teams Dredge Runner Relationship Specialty Start Date End Date Dara Tavera FNP [address] [place] [address] PCP - General NURSE PRACTITIONER 10/13/18 documented as of this encounter
--- OUTSIDE RECORDS SUMMARY | 2025-04-29 17:49 | XMS_ITS | Encounter Summary ---
Author Organization [facility] Address [address] [facility] Attn: [place] [address] Care Team Providers Care Guest Relations Associate Name Role Phone Dara Tavera Primary Care Provider Encounter Details Date Type Department Care Team ([facility] Contact Info) Description 02/25/2002 Outpatient Historical Raúl Osullivan MD [address] [place] [address] Social History Tobacco Use Types Packs/Day Years Used Date Smoking Tobacco: Never Assessed Comments Unknown Sex and Gender Information Value Date Recorded Sex Assigned at Not on file Legal Sex Female 5:22 AM TRAFFIC CLERK Gender Identity Not on file Sexual Orientation Not on file documented as of this encounter Plan of Treatment Not on file documented as of this encounter Visit Diagnoses Not on filedocumented in this encounter Additional Health Concerns Infection Onset Date Last Indicated Resolved Time VRE Comment:Urine 10/30/13 Resolved 11/04/2013 11/04/2013 8 10:33 AM TRAFFIC CLERK R/O COVID-19 12/25/2019 12/25/2019 12/26/2019 2:46 PM CDT R/O COVID-19 05/09/2020 05/09/2020 05/09/2020 12:1 7 PM TRAFFIC CLERK documented as of this encounter Care Teams Guest Relations Associate Relationship Specialty Start Date End Date Dara Tavera FNP [address] [place] [address] PCP - General NURSE PRACTITIONER 10/13/18 documented as of this encounter
--- OUTSIDE RECORDS SUMMARY | 2025-04-29 17:49 | XMS_ITS | Encounter Summary ---
Author Organization [facility] Address [address] [place] [address] Care Team Providers Care Manager Float Name Role Phone Dara Tavera AMANDEEP Primary Care Provider Encounter Details Date Type Department Care Team (Latest Contact Info) Description 02/24/2005 Outpatient Historical [facility] Pain Management- [place] [address] [place] [address] Prasad Carpenter MD NO ADDRESS ON FILE OTHER BACK SYMPTOMS (Primary Dx); LUMB/LUMBOSAC DISC DEGEN; LUMBAGO; Lumbosacral spondylosis Social History Tobacco Use Types Packs/Day Years Used Date Smoking Tobacco: Never Assessed Comments Unknown Sex and Gender Information Value Date Recorded Sex Assigned at Not on file Legal Sex Female 5:22 AM MEDIA SERVICES COORDINATOR Gender Identity Not on file Sexual [...] 10/30/13 Resolved 11/04/2013 11/04/2013 8 10:33 AM MEDIA SERVICES COORDINATOR R/O COVID-19 12/25/2019 12/25/2019 12/26/2019 2:46 PM CDT R/O COVID-19 05/09/2020 05/09/2020 05/09/2020 12:1 7 PM MEDIA SERVICES COORDINATOR documented as of this encounter Care Teams Manager Float Relationship Specialty Start Date End Date Dara Tavera FNP [address] [place] [phone] PCP - General NURSE PRACTITIONER 10/13/18 documented as of this encounter
--- OUTSIDE RECORDS SUMMARY | 2025-04-29 17:49 | XMS_ITS | Encounter Summary ---
Author Organization [facility] Address [address] [place]: [place] [address] Care Team Providers Care Plastic Duplicator Name Role Phone Dara Tavera Primary Care Provider Encounter Details Date Type Department Care Team ([facility] st Contact Info) Description 11/25/1999 Outpatient Historical [facility], [place], [address] [place] [address] Social History Tobacco Use Types Packs/Day Years Used Date Smoking Tobacco: Never Assessed Comments Unknown Sex and Gender Information Value Date Recorded Sex Assigned at Not on file Legal Sex Female 5:22 AM PATIENT INTAKE REPRESENTATIVE Gender Identity Not on file Sexual Orientation Not on file documented as of this encounter Plan of Treatment Not on file documented as of this encounter Visit Diagnoses Not on filedocumented in this encounter Additional Health Concerns Infection Onset Date Last Indicated Resolved Time VRE Comment:Urine 10/30/13 Resolved 11/04/2013 11/04/2013 8 10:33 AM PATIENT INTAKE REPRESENTATIVE R/O COVID-19 12/25/2019 12/25/2019 12/26/2019 2:46 PM CDT R/O COVID-19 05/09/2020 05/09/2020 05/09/2020 12:1 7 PM PATIENT INTAKE REPRESENTATIVE documented as of this encounter Care Teams Plastic Duplicator Relationship Specialty Start Date End Date Dara Tavera FNP [address] [place] [phone] PCP - General NURSE PRACTITIONER 10/13/18 documented as of this encounter
--- OUTSIDE RECORDS SUMMARY | 2025-04-29 17:49 | XMS_ITS | Encounter Summary ---
Author Organization [facility] Address [address] [place] [address] Care Team Providers Care Family Preservation Worker Name Role Phone Dara Tavera Primary Care Provider Encounter Details Date Type Department Care Team (Latest Contact Info) Description 12/07/2003 Outpatient Historical [facility] SCHIZOPHRENIA NOS-UNSPEC (CMS/HCC) (Primary Dx) Social History Tobacco Use Types Packs/Day Years Used Date Smoking Tobacco: Never Assessed Comments Unknown Sex and Gender Information Value Date Recorded Sex Assigned at Not on file Legal Sex Female 5:22 AM LIFE INSURANCE SALESPERSON Gender Identity Not on file Sexual Orientation Not on file documented as of this encounter Plan of Treatment Not on file documented as of this encounter Visit Diagnoses Diagnosis Unspecified schizophrenia, unspecified condition (CMS/HCC)- Primary Unspecified schizophrenia, unspecified condition documented in this encounter Additional Health Concerns Infection Onset Date Last Indicated Resolved Time VRE Comment:Urine 10/30/13 Resolved 11/04/2013 11/04/2013 8 10:33 AM LIFE INSURANCE SALESPERSON R/O COVID-19 12/25/2019 12/25/2019 12/26/2019 2:46 PM CDT R/O COVID-19 05/09/2020 05/09/2020 05/09/2020 12:1 7 PM LIFE INSURANCE SALESPERSON documented as of this encounter Care Teams Family Preservation Worker Relationship Specialty Start Date End Date Dara Tavera FNP [address] [place] [address] PCP - General NURSE PRACTITIONER 10/13/18 documented as of this encounter
--- OUTSIDE RECORDS SUMMARY | 2025-04-29 17:49 | XMS_ITS | Encounter Summary ---
Author Organization [facility] Address [address] [place] [address] Care Team Providers Care Reducing Salon Attendant Name Role Phone Dara Tavera Primary Care Provider [phone] Encounter Details Date Type Department Care Team (Latest Contact Info) Description 02/24/[address] [facility] Behavioral Clinical Services [address] [place] [address] Oniel Upton MD NO ADDRESS ON FILE SCHIZOAFFECTIVE-UNSP EC ([facility]/HCC) (Primary Dx) Social History Tobacco Use Types Packs/Day Years Used Date Smoking Tobacco: Never Assessed Comments Unknown Sex and Gender Information Value Date Recorded Sex Assigned at Not on file Legal Sex Female 5:22 AM COPS Gender Identity Not on file Sexual Orientation Not on file documented as of this encounter Plan of Treatment Not on file documented as of this encounter Visit Diagnoses Diagnosis Schizoaffective disorder, unspecified condition ([facility]/HCC)- Primary Schizoaffective disorder, unspecified condition documented in this encounter Additional Health Concerns Infection Onset Date Last Indicated Resolved Time VRE Comment:Urine 10/30/13 Resolved 11/04/2013 11/04/2013 8 10:33 AM COPS R/O COVID-19 12/25/2019 12/25/2019 12/26/2019 2:46 PM CDT R/O COVID-19 05/09/2020 05/09/2020 05/09/2020 12:1 7 PM COPS documented as of this encounter Care Teams Reducing Salon Attendant Relationship Specialty Start Date End Date Dara Tavera FNP [address] [place] [phone] PCP - General NURSE PRACTITIONER 10/13/18 documented as of this encounter
--- OUTSIDE RECORDS SUMMARY | 2025-04-29 17:49 | XMS_ITS | Encounter Summary ---
Author Organization [facility] Address [address] [place] [address] Care Team Providers Care Fitness Club Manager Name Role Phone Dara Tavera AMANDEEP Primary Care Provider [phone] Encounter Details Date Type Department Care Team (Latest Contact Info) Description 03/07/2005 Outpatient Historical [facility] Pain Management- [place] [address] [place] [address] Prasad Carpenter MD NO ADDRESS ON FILE Lumbosacral spondylosis (Primary Dx); LUMBAGO; LUMB/LUMBOSAC DISC DEGEN; OTHER BACK SYMPTOMS Social History Tobacco Use Types Packs/Day Years Used Date Smoking Tobacco: Never Assessed Comments Unknown Sex and Gender Information Value Date Recorded Sex Assigned at Not on file Legal Sex Female 5:22 AM FIBERGLASSER Gender Identity Not on file Sexual Orientation [...] 10/30/13 Resolved 11/04/2013 11/04/2013 8 10:33 AM FIBERGLASSER R/O COVID-19 12/25/2019 12/25/2019 12/26/2019 2:46 PM CDT R/O COVID-19 05/09/2020 05/09/2020 05/09/2020 12:1 7 PM FIBERGLASSER documented as of this encounter Care Teams Fitness Club Manager Relationship Specialty Start Date End Date Dara Tavera FNP [address] [place] [phone] PCP - General NURSE PRACTITIONER 10/13/18 documented as of this encounter
--- OUTSIDE RECORDS SUMMARY | 2025-04-29 17:49 | XMS_ITS | Encounter Summary ---
Author Organization [facility] Address [address] [place] [address] Care Team Providers Care Spare Hand Carding Name Role Phone Dara Tavera Primary Care Provider Encounter Details Date Type Department Care Team (Latest Contact Info) Description 04/28/2005 Outpatient Historical [facility] [place] [address] [place] [address] Krissy Pickard FNP [address] [facility] [address] [place] [address] ENTHESOPATHY OF HIP (Primary Dx) Social History Tobacco Use Types Packs/Day Years Used Date Smoking Tobacco: Never Assessed Comments Unknown Sex and Gender Information Value Date Recorded Sex Assigned at Not on file Legal Sex Female 5:22 AM DOVETAIL MACHINE OPERATOR Gender Identity Not on file Sexual Orientation Not on file documented as of this encounter Plan of Treatment Not on file documented as of this encounter Visit Diagnoses Diagnosis Enthesopathy of hip region- Primary documented in this encounter Additional Health Concerns Infection Onset Date Last Indicated Resolved Time VRE Comment:Urine 10/30/13 Resolved 11/04/2013 11/04/2013 8 10:33 AM DOVETAIL MACHINE OPERATOR R/O COVID-19 12/25/2019 12/25/2019 12/26/2019 2:46 PM CDT R/O COVID-19 05/09/2020 05/09/2020 05/09/2020 12:1 7 PM DOVETAIL MACHINE OPERATOR documented as of this encounter Care Teams Spare Hand Carding Relationship Specialty Start Date End Date Dara Tavera FNP [address] [place] [phone] PCP - General NURSE PRACTITIONER 10/13/18 documented as of this encounter
--- OUTSIDE RECORDS SUMMARY | 2025-04-29 17:49 | XMS_ITS | Encounter Summary ---
Author Organization [facility] Address [address] [place] [address] Care Team Providers Care Cleaning Custodian Name Role Phone Dara Tavera Primary Care Provider Encounter Details Date Type Department Care Team (Late st Contact Info) Description 11/04/2003 Outpatient Historical [facility] Behavioral Clinical Services [address] [place] [address] Hood Kerr Jr., MD [address] [place] [address] Social History Tobacco Use Types Packs/Day Years Used Date Smoking Tobacco: Never Assessed Comments Unknown Sex and Gender Information Value Date Recorded Sex Assigned at Not on file Legal Sex Female 5:22 AM BOWLING FLOOR MANAGER Gender Identity Not on file Sexual Orientation Not on file documented as of this encounter Plan of Treatment Not on file documented as of this encounter Visit Diagnoses Not on filedocumented in this encounter Additional Health Concerns Infection Onset Date Last Indicated Resolved Time VRE Comment:Urine 10/30/13 Resolved 11/04/2013 11/04/2013 8 10:33 AM BOWLING FLOOR MANAGER R/O COVID-19 12/25/2019 12/25/2019 12/26/2019 2:46 PM CDT R/O COVID-19 05/09/2020 05/09/2020 05/09/2020 12:1 7 PM BOWLING FLOOR MANAGER documented as of this encounter Care Teams Cleaning Custodian Relationship Specialty Start Date End Date Dara Tavera FNP [address] [place] [phone] PCP - General NURSE PRACTITIONER 10/13/18 documented as of this encounter
--- OUTSIDE RECORDS SUMMARY | 2025-04-29 17:49 | XMS_ITS | Encounter Summary ---
Author Organization [facility] Address [address] [place] [address] Care Team Providers Care Nutrition Services Worker Name Role Phone Dara Tavera Primary Care Provider Encounter Details Date Type Department Care Team (Latest Contact Info) Description 05/22/2003 Outpatient Historical [facility] Urology- [address]tr[address], 3rd [place] [address] Hossein Blair MD NO ADDRESS ON FILE FB bladder/urethra (Primary Dx); URGE & STRESS MIXED INCONTINENCE Social History Tobacco Use Types Packs/Day Years Used Date Smoking Tobacco: Never Assessed Comments Unknown Sex and Gender Information Value Date Recorded Sex Assigned at Not on file Legal Sex Female 5:22 AM OPERATIONS ASSISTANT Gender Identity Not on file Sexual [...] 10/30/13 Resolved 11/04/2013 11/04/2013 8 10:33 AM OPERATIONS ASSISTANT R/O COVID-19 12/25/2019 12/25/2019 12/26/2019 2:46 PM CDT R/O COVID-19 05/09/2020 05/09/2020 05/09/2020 12:1 7 PM OPERATIONS ASSISTANT documented as of this encounter Care Teams Nutrition Services Worker Relationship Specialty Start Date End Date Dara Tavera FNP [address] [place] [phone] PCP - General NURSE PRACTITIONER 10/13/18 documented as of this encounter
--- OUTSIDE RECORDS SUMMARY | 2025-04-29 17:49 | XMS_ITS | Encounter Summary ---
Author Organization [facility] Address [address] [place] [address] Care Team Providers Care Impregnating Tank Operator Name Role Phone Dara Tavera REPEAT PHOTOCOMPOSING MACHINE OPERATOR Primary Care Provider Reason for Referral * Outpatient Services (Routine) - Closed Specialty Diagnoses / Procedures Referred By Contac t Referred To Contact Radiology Diagnoses Chest pain, unspecified chest pain type SOB (shortness of breath) on exertion Procedures ECHO STRESS W CONTRAST EXER W DOPP AND COLOR FL ECHO STRESS TEST EXERCISE W DOPP AND COLOR FLOW Jorge Taylor MD [facility] [place] [address] [place] [address] Phone: tel: fax: Referral ID Status Reason Start Date Expiration Date V isits Requested Visits Authorized [id number] Closed [facility] TO SCHEDULE ([facility]) 10/05/2015 11/04/2016 1 1 Encounter Details Date Type Department Care Team (Latest Contact Info) Description 10/05/2015 Ancillary Orders [facility] Pulmonology [facility] [address] [place] [address] Jorge Taylor MD NO ADDRESS [...] on file Legal Sex Female 5:22 AM HANDLE MAKER Gender Identity Not on file Sexual [...] INTERFACE SYSTEM - 10/05/2015 12:22 PM CDT [facility] Echocardiography-[address] [place] [address] Stress Echocardiography Rafy protocol Patient: Choco Study ECHO STRESS Latesha Solis ID: TEST Gender: Jaye : 1965 Age: 49 Room: Study 10/05/2015 Pt Outpatient Date: Status: Study 11:16 AM [facility] #: [id number] Time: Ordering:Jorge Taylor Interpreting:Stephen Alberts MD Novelty Twister Tender: Rosario Cam [facility] Indications and History: Chest Pain, unspecified. Risk [...] peak heart rate and blood pressure was 75197gd Hg/min. Functional capacity was decreased (greater than [...] peak heart rate and blood pressure was 11270gp Hg/min. Functional capacity was decreased (greater than [...] (*) waterman values outside specified normal range. [facility] are accredited with the Intersocietal Accreditation Commission - Echocardiography. Prepared and Electronically Authenticated Stephen Alberts MD Confirmed 10/05/2015 12:22 Procedure Note Stephen Alberts MD - 10/05/2015 [facility] Echocardiography-[place] [address] [place] [address] [place] [address] Stress Echocardiography Rafy protocol Patient: Choco Study ECHO STRESS Latesha Solis ID: TEST Gender: F : 1965 Age: 49 Room: Study 10/05/2015 Pt Outpatient Date: Status: Study 11:16 AM CSN #: [id number] Time: Ordering:Jorge Taylor Interpreting:Stephen Alberts MD Novelty Twister Tender: Rosario Cam [facility] Indications and History: Chest Pain, unspecified. Risk [...] peak heart rate and blood pressure was 56433zp Hg/min. Functional capacity was decreased (greater than [...] the procedure well. There were no complications. Rayf protocol. Study components: M-mode, complete 2D, complete [...] peak heart rate and blood pressure was 33500se Hg/min. Functional capacity was decreased (greater than [...] (*) waterman values outside specified normal range. [facility] are accredited with the [...] 10/30/13 Resolved 11/04/2013 11/04/2013 8 10:33 AM HANDLE MAKER R/O COVID-19 12/25/2019 12/25/2019 12/26/2019 2:46 PM CDT R/O COVID-19 05/09/2020 05/09/2020 05/09/2020 12:1 7 PM HANDLE MAKER documented as of this encounter Care Teams Impregnating Tank Operator Relationship Specialty Start Date End Date Dara Tavera FNP [address] [place] [address] PCP - General NURSE PRACTITIONER 10/13/18 documented as of this encounter
--- OUTSIDE RECORDS SUMMARY | 2025-04-29 17:49 | XMS_ITS | Encounter Summary ---
Author Organization [facility] Address [address] [place] [address] Care Team Providers Care Station Helper Name Role Phone Dara Tavera Primary Care Provider [phone] Encounter Details Date Type Department Care Team (Latest Contact Info) Description 08/08/2003 Outpatient Historical [facility] Urology- [address]tr[address], 3rd [place] [address] Hossein Blair MD NO ADDRESS ON FILE URGE & STRESS MIXED INCONTINENCE (Primary Dx) Social History Tobacco Use Types Packs/Day Years Used Date Smoking Tobacco: Never Assessed Comments Unknown Sex and Gender Information Value Date Recorded Sex Assigned at Not on file Legal Sex Female 5:22 AM SHIPS OR BARGES LOADER Gender Identity Not on file Sexual Orientation Not on file documented as of this encounter Plan of Treatment Not on file documented as of this encounter Visit Diagnoses Diagnosis Mixed incontinence urge and stress (male)(female)- Primary documented in this encounter Additional Health Concerns Infection Onset Date Last Indicated Resolved Time VRE Comment:Urine 10/30/13 Resolved 11/04/2013 11/04/2013 8 10:33 AM SHIPS OR BARGES LOADER R/O COVID-19 12/25/2019 12/25/2019 12/26/2019 2:46 PM CDT R/O COVID-19 05/09/2020 05/09/2020 05/09/2020 12:1 7 PM SHIPS OR BARGES LOADER documented as of this encounter Care Teams Station Helper Relationship Specialty Start Date End Date Dara Tavera FNP [address] [place] [phone] PCP - General NURSE PRACTITIONER 10/13/18 documented as of this encounter
--- OUTSIDE RECORDS SUMMARY | 2025-04-29 17:49 | XMS_ITS | Encounter Summary ---
Author Organization [facility] Address [address] [place] [address] Care Team Providers Care Cattle Brander Name Role Phone Dara Tavera Primary Care Provider [phone] Encounter Details Date Type Department Care Team (Latest Contact Info) Description 09/23/2003 Outpatient Historical [facility] Imaging Services [address] [place] [address] Hossein Blair MD NO ADDRESS ON FILE ENURESIS NOS (Primary Dx) Social History Tobacco Use Types Packs/Day Years Used Date Smoking Tobacco: Never Assessed Comments Unknown Sex and Gender Information Value Date Recorded Sex Assigned at Not on file Legal Sex Female 5:22 AM PHLEBOTOMY SERVICES TECHNICIAN Gender Identity Not on file Sexual Orientation Not on file documented as of this encounter Plan of Treatment Not on file documented as of this encounter Visit Diagnoses Diagnosis Unspecified urinary incontinence- Primary documented in this encounter Additional Health Concerns Infection Onset Date Last Indicated Resolved Time VRE Comment:Urine 10/30/13 Resolved 11/04/2013 11/04/2013 8 10:33 AM PHLEBOTOMY SERVICES TECHNICIAN R/O COVID-19 12/25/2019 12/25/2019 12/26/2019 2:46 PM CDT R/O COVID-19 05/09/2020 05/09/2020 05/09/2020 12:1 7 PM PHLEBOTOMY SERVICES TECHNICIAN documented as of this encounter Care Teams Cattle Brander Relationship Specialty Start Date End Date Dara Tavera FNP [address] [place] [address] PCP - General NURSE PRACTITIONER 10/13/18 documented as of this encounter
--- OUTSIDE RECORDS SUMMARY | 2025-04-29 17:49 | XMS_ITS | Encounter Summary ---
Author Organization [facility] Address [address] [place] [address] Care Team Providers Care Creative Consultant Name Role Phone Dara Tavera Primary Care Provider Encounter Details Date Type Department Care Team (Latest Contact Info) Description 06/04/1997 Outpatient Historical [facility] Roney Arora MD [address] [facility] [address] [place] [address] Unspecified osteomyelitis, other specified site (Primary Dx); Need vaccination-viral disease Social History Tobacco Use Types Packs/Day Years Used Date Smoking Tobacco: Never Assessed Comments Unknown Sex and Gender Information Value Date Recorded Sex Assigned at Not on file Legal Sex Female 5:22 AM SWIMMING POOL SERVICER Gender Identity Not on file Sexual Orientation [...] 10/30/13 Resolved 11/04/2013 11/04/2013 8 10:33 AM SWIMMING POOL SERVICER R/O COVID-19 12/25/2019 12/25/2019 12/26/2019 2:46 PM CDT R/O COVID-19 05/09/2020 05/09/2020 05/09/2020 12:1 7 PM SWIMMING POOL SERVICER documented as of this encounter Care Teams Creative Consultant Relationship Specialty Start Date End Date Dara Tavera FNP [address] [place] [phone] PCP - General NURSE PRACTITIONER 10/13/18 documented as of this encounter
--- OUTSIDE RECORDS SUMMARY | 2025-04-29 17:49 | XMS_ITS | Encounter Summary ---
Author Organization [facility] Address [address] [place] [address] Care Team Providers Care Tin Flopper Name Role Phone Dara Tavera Primary Care Provider [phone] Encounter Details Date Type Department Care Team (Late st Contact Info) Description 07/16/2003 Outpatient [facility] Imaging and Laboratory Services [address] [place] [address] Hossein Blair MD NO ADDRESS ON FILE BLADDER DISORDER NEC (Primary Dx) Social History Tobacco Use Types Packs/Day Years Used Date Smoking Tobacco: Never Assessed Comments Unknown Sex and Gender Information Value Date Recorded Sex Assigned at Not on file Legal Sex Female 5:22 AM STEP DOWN NURSE Gender Identity Not on file Sexual Orientation Not on file documented as of this encounter Plan of Treatment Not on file documented as of this encounter Visit Diagnoses Diagnosis Other specified disorder of bladder- Primary documented in this encounter Additional Health Concerns Infection Onset Date Last Indicated Resolved Time VRE Comment:Urine 10/30/13 Resolved 11/04/2013 11/04/2013 8 10:33 AM STEP DOWN NURSE R/O COVID-19 12/25/2019 12/25/2019 12/26/2019 2:46 PM CDT R/O COVID-19 05/09/2020 05/09/2020 05/09/2020 12:1 7 PM STEP DOWN NURSE documented as of this encounter Care Teams Tin Flopper Relationship Specialty Start Date End Date Dara Tavera FNP [address] [place] [address] PCP - General NURSE PRACTITIONER 10/13/18 documented as of this encounter
--- OUTSIDE RECORDS SUMMARY | 2025-04-29 17:49 | XMS_ITS | Encounter Summary ---
Author Organization [facility] Address [address] [place] [address] Care Team Providers Care Rice Field Worker Name Role Phone Dara Tavera Primary Care Provider Encounter Details Date Type Department Care Team (Latest Contact Info) Description 01/14/2005 Outpatient Historical [facility] [address] [place] [address] Faiza Petersen MD NO ADDRESS ON FILE LUMBAGO (Primary Dx); NEURALGIA/NEURITIS NOS Social History Tobacco Use Types Packs/Day Years Used Date Smoking Tobacco: Never Assessed Comments Unknown Sex and Gender Information Value Date Recorded Sex Assigned at Not on file Legal Sex Female 5:22 AM COMMERCIAL AGENT Gender Identity Not on file Sexual Orientation Not on file documented as of this encounter Plan of Treatment Not on file documented as of this encounter Visit Diagnoses Diagnosis Lumbago- Primary Neuralgia, neuritis, and radiculitis, unspecified documented in this encounter Additional Health Concerns Infection Onset Date Last Indicated Resolved Time VRE Comment:Urine 10/30/13 Resolved 11/04/2013 11/04/2013 8 10:33 AM COMMERCIAL AGENT R/O COVID-19 12/25/2019 12/25/2019 12/26/2019 2:46 PM CDT R/O COVID-19 05/09/2020 05/09/2020 05/09/2020 12:1 7 PM COMMERCIAL AGENT documented as of this encounter Care Teams Rice Field Worker Relationship Specialty Start Date End Date Dara Tavera FNP [address] [place] [phone] PCP - General NURSE PRACTITIONER 10/13/18 documented as of this encounter
--- OUTSIDE RECORDS SUMMARY | 2025-04-29 17:49 | XMS_ITS | Encounter Summary ---
Author Organization [facility] Address [address] [place] [address] Care Team Providers Care Bait Digger Name Role Phone Dara Tavera Primary Care Provider [phone] Encounter Details Date Type Department Care Team (Late st Contact Info) Description 05/19/2008 Outpatient Historical [facility] [address] [place] [address] AMBULANCE, [facility] Social History Tobacco Use Types Packs/Day Years Used Date Smoking Tobacco: Never Assessed Comments Unknown Sex and Gender Information Value Date Recorded Sex Assigned at Not on file Legal Sex Female 5:22 AM INVESTIGATION DIVISION SERGEANT Gender Identity Not on file Sexual Orientation Not on file documented as of this encounter Plan of Treatment Not on file documented as of this encounter Visit Diagnoses Not on filedocumented in this encounter Additional Health Concerns Infection Onset Date Last Indicated Resolved Time VRE Comment:Urine 10/30/13 Resolved 11/04/2013 11/04/2013 8 10:33 AM INVESTIGATION DIVISION SERGEANT R/O COVID-19 12/25/2019 12/25/2019 12/26/2019 2:46 PM CDT R/O COVID-19 05/09/2020 05/09/2020 05/09/2020 12:1 7 PM INVESTIGATION DIVISION SERGEANT documented as of this encounter Care Teams Bait Digger Relationship Specialty Start Date End Date Dara Tavera FNP [address] [place] [address] PCP - General NURSE PRACTITIONER 10/13/18 documented as of this encounter
--- OUTSIDE RECORDS SUMMARY | 2025-04-29 17:49 | XMS_ITS | Encounter Summary ---
Author Organization [facility] Address [address] [place] [address] Care Team Providers Care Home Theatre Technician Name Role Phone Ayse Dara BERNSTEIN Primary Care Provider Encounter Details Date Type Department Care Team (Latest Contact Info) Description 11/18/2002 Outpatient [facility] Ear, Nose and Th[facility]at [place] [facility] [place] [address] Dmitri Vega MD [address] [place] [address] SURGERY FOLLOWUP, UNSPEC (Primary Dx) Social History Tobacco Use Types Packs/Day Years Used Date Smoking Tobacco: Never Assessed Comments Unknown Sex and Gender Information Value Date Recorded Sex Assigned at Not on file Legal Sex Female 5:22 AM TARRING MACHINE OPERATOR Gender Identity Not on file Sexual Orientation Not on file documented as of this encounter Plan of Treatment Not on file documented as of this encounter Visit Diagnoses Diagnosis Follow-up examination, following unspecified surgery- Primary documented in this encounter Additional Health Concerns Infection Onset Date Last Indicated Resolved Time VRE Comment:Urine 10/30/13 Resolved 11/04/2013 11/04/2013 8 10:33 AM TARRING MACHINE OPERATOR R/O COVID-19 12/25/2019 12/25/2019 12/26/2019 2:46 PM CDT R/O COVID-19 05/09/2020 05/09/2020 05/09/2020 12:1 7 PM TARRING MACHINE OPERATOR documented as of this encounter Care Teams Home Theatre Technician Relationship Specialty Start Date End Date Dara Tavera FNP [address] [place] [phone] PCP - General NURSE PRACTITIONER 10/13/18 documented as of this encounter
--- OUTSIDE RECORDS SUMMARY | 2025-04-29 17:49 | XMS_ITS | Encounter Summary ---
Author Organization [facility] Address [address] [place] [address] Care Team Providers Care Whittling Room Operator Name Role Phone Dara Tavera Primary Care Provider [phone] Encounter Details Date Type Department Care Team (Latest Contact Info) Description 10/22/2004 Outpatient Historical [facility] Medicine [place] [address] [facility] [address] [place] [address] Ryan Don NP NO ADDRESS ON FILE LUMP OR MASS IN BREAST (Primary Dx) Social History Tobacco Use Types Packs/Day Years Used Date Smoking Tobacco: Never Assessed Comments Unknown Sex and Gender Information Value Date Recorded Sex Assigned at Not on file Legal Sex Female 5:22 AM HOSPICE CARE CONSULTANT Gender Identity Not on file Sexual Orientation Not on file documented as of this encounter Plan of Treatment Not on file documented as of this encounter Visit Diagnoses Diagnosis Lump or mass in breast- Primary documented in this encounter Additional Health Concerns Infection Onset Date Last Indicated Resolved Time VRE Comment:Urine 10/30/13 Resolved 11/04/2013 11/04/2013 8 10:33 AM HOSPICE CARE CONSULTANT R/O COVID-19 12/25/2019 12/25/2019 12/26/2019 2:46 PM CDT R/O COVID-19 05/09/2020 05/09/2020 05/09/2020 12:1 7 PM HOSPICE CARE CONSULTANT documented as of this encounter Care Teams Whittling Room Operator Relationship Specialty Start Date End Date Dara Tavera FNP [address] [place] [address] PCP - General NURSE PRACTITIONER 10/13/18 documented as of this encounter
--- OUTSIDE RECORDS SUMMARY | 2025-04-29 17:49 | XMS_ITS | Encounter Summary ---
Author Organization [facility] Address [address] [place] [address] Care Team Providers Care Polymerization Kettle Operator Name Role Phone Dara Tavera Primary Care Provider Encounter Details Date Type Department Care Team (Latest Contact Info) Description 06/17/1997 Outpatient Historical [facility] Roney Arora MD [address] [facility] [address] [place] [address] Unspecified osteomyelitis, site unspecified (CMS/HCC) (Primary Dx) Social History Tobacco Use Types Packs/Day Years Used Date Smoking Tobacco: Never Assessed Comments Unknown Sex and Gender Information Value Date Recorded Sex Assigned at Not on file Legal Sex Female 5:22 AM RAILROAD EMERGENCY SERVICES MANAGER Gender Identity Not on file [...] Resolved 11/04/2013 11/04/2013 8 10:33 AM RAILROAD EMERGENCY SERVICES MANAGER R/O COVID-19 12/25/2019 12/25/2019 12/26/2019 2:46 PM CDT R/O COVID-19 05/09/2020 05/09/2020 05/09/2020 12:1 7 PM RAILROAD EMERGENCY SERVICES MANAGER documented as of this encounter Care Teams Polymerization Kettle Operator Relationship Specialty Start Date End Date Dara Tavera FNP [address] [place] [phone] PCP - General NURSE PRACTITIONER 10/13/18 documented as of this encounter
--- OUTSIDE RECORDS SUMMARY | 2025-04-29 17:49 | XMS_ITS | Encounter Summary ---
Author Organization [facility] Address [address] [place] [address] Care Team Providers Care Career Coordinator Name Role Phone Dara Tavera Primary Care Provider Encounter Details Date Type Department Care Team (Latest Contact Info) Description 03/27/2003 Outpatient Historical [facility] Behavioral Clinical Services [address] [place] [address] Oniel Upton MD NO ADDRESS ON FILE SCHIZOAFFECTIVE-UNSP EC ([facility]/HCC) (Primary Dx) Social History Tobacco Use Types Packs/Day Years Used Date Smoking Tobacco: Never Assessed Comments Unknown Sex and Gender Information Value Date Recorded Sex Assigned at Not on file Legal Sex Female 5:22 AM REHAB PHYSICIAN Gender Identity Not on file Sexual Orientation Not on file documented as of this encounter Plan of Treatment Not on file documented as of this encounter Visit Diagnoses Diagnosis Schizoaffective disorder, unspecified condition ([facility]/HCC)- Primary Schizoaffective disorder, unspecified condition documented in this encounter Additional Health Concerns Infection Onset Date Last Indicated Resolved Time VRE Comment:Urine 10/30/13 Resolved 11/04/2013 11/04/2013 8 10:33 AM REHAB PHYSICIAN R/O COVID-19 12/25/2019 12/25/2019 12/26/2019 2:46 PM CDT R/O COVID-19 05/09/2020 05/09/2020 05/09/2020 12:1 7 PM REHAB PHYSICIAN documented as of this encounter Care Teams Career Coordinator Relationship Specialty Start Date End Date Dara Tavera FNP [address] [place] [phone] PCP - General NURSE PRACTITIONER 10/13/18 documented as of this encounter
--- OUTSIDE RECORDS SUMMARY | 2025-04-29 17:49 | XMS_ITS | Encounter Summary ---
Author Organization [facility] Address [address] [place] [address] Care Team Providers Care Thread Inspector Name Role Phone Dara Tavera MANUFACTURING ENGINEER AUTOMOTIVE Primary Care Provider Encounter Details Date Type Department Care Team (Latest Contact Info) Description 07/29/[address] [facility] Behavioral Clinical Services [address] [place] [address] Hood Kerr Jr., MD [address] [place] [address] SCHIZOAFFECTIVE-UNSP EC (CMS/HCC) (Primary Dx) Social History Tobacco Use Types Packs/Day Years Used Date Smoking Tobacco: Never Assessed Comments Unknown Sex and Gender Information Value Date Recorded Sex Assigned at Not on file Legal Sex Female 5:22 AM UNIT MANAGER CONVENIENCE STORES Gender Identity Not on file Sexual Orientation Not on file documented as of this encounter Plan of Treatment Not on file documented as of this encounter Visit Diagnoses Diagnosis Schizoaffective disorder, unspecified condition (CMS/HCC)- Primary Schizoaffective disorder, unspecified condition documented in this encounter Additional Health Concerns Infection Onset Date Last Indicated Resolved Time VRE Comment:Urine 10/30/13 Resolved 11/04/2013 11/04/2013 8 10:33 AM UNIT MANAGER CONVENIENCE STORES R/O COVID-19 12/25/2019 12/25/2019 12/26/2019 2:46 PM CDT R/O COVID-19 05/09/2020 05/09/2020 05/09/2020 12:1 7 PM UNIT MANAGER CONVENIENCE STORES documented as of this encounter Care Teams Thread Inspector Relationship Specialty Start Date End Date Dara Tavera FNP [address] [place] [phone] PCP - General NURSE PRACTITIONER 10/13/18 documented as of this encounter
--- OUTSIDE RECORDS SUMMARY | 2025-04-29 17:49 | XMS_ITS | Encounter Summary ---
Author Organization [facility] Address [address] [place] [address] Care Team Providers Care Garment Sewing Machine Operator Name Role Phone Dara Tavera Primary Care Provider [phone] Encounter Details Date Type Department Care Team (Latest Contact Info) Description 06/28/2003 Outpatient Historical [facility] Behavioral Clinical Services [address] [place] [address] Oniel Upton MD NO ADDRESS ON FILE SCHIZOAFFECTIVE-UNSP EC ([facility]/HCC) (Primary Dx) Social History Tobacco Use Types Packs/Day Years Used Date Smoking Tobacco: Never Assessed Comments Unknown Sex and Gender Information Value Date Recorded Sex Assigned at Not on file Legal Sex Female 5:22 AM DRAPERY ROD ASSEMBLER Gender Identity Not on file Sexual Orientation Not on file documented as of this encounter Plan of Treatment Not on file documented as of this encounter Visit Diagnoses Diagnosis Schizoaffective disorder, unspecified condition ([facility]/HCC)- Primary Schizoaffective disorder, unspecified condition documented in this encounter Additional Health Concerns Infection Onset Date Last Indicated Resolved Time VRE Comment:Urine 10/30/13 Resolved 11/04/2013 11/04/2013 8 10:33 AM DRAPERY ROD ASSEMBLER R/O COVID-19 12/25/2019 12/25/2019 12/26/2019 2:46 PM CDT R/O COVID-19 05/09/2020 05/09/2020 05/09/2020 12:1 7 PM DRAPERY ROD ASSEMBLER documented as of this encounter Care Teams Garment Sewing Machine Operator Relationship Specialty Start Date End Date Dara Tavera FNP [address] [place] [phone] PCP - General NURSE PRACTITIONER 10/13/18 documented as of this encounter
--- OUTSIDE RECORDS SUMMARY | 2025-04-29 17:49 | XMS_ITS | Encounter Summary ---
Author Organization [facility] Address [address] [place] [address] Care Team Providers Care Rn Enterostomal Name Role Phone Dara Tavera Primary Care Provider Encounter Details Date Type Department Care Team (Latest Contact Info) Description 03/21/[address] [facility] [address] [place] [address] AMBULANCE, [facility] DEPRESSIVE DISORDER NEC (Primary Dx) Social History Tobacco Use Types Packs/Day Years Used Date Smoking Tobacco: Never Assessed Comments Unknown Sex and Gender Information Value Date Recorded Sex Assigned at Not on file Legal Sex Female 5:22 AM CLAIM PROFESSIONAL Gender Identity Not on file Sexual Orientation Not on file documented as of this encounter Plan of Treatment Not on file documented as of this encounter Visit Diagnoses Diagnosis Depressive disorder, not elsewhere classified- Primary documented in this encounter Additional Health Concerns Infection Onset Date Last Indicated Resolved Time VRE Comment:Urine 10/30/13 Resolved 11/04/2013 11/04/2013 8 10:33 AM CLAIM PROFESSIONAL R/O COVID-19 12/25/2019 12/25/2019 12/26/2019 2:46 PM CDT R/O COVID-19 05/09/2020 05/09/2020 05/09/2020 12:1 7 PM CLAIM PROFESSIONAL documented as of this encounter Care Teams Rn Enterostomal Relationship Specialty Start Date End Date Dara Tavera FNP [address] [place] [phone] PCP - General NURSE PRACTITIONER 10/13/18 documented as of this encounter
--- OUTSIDE RECORDS SUMMARY | 2025-04-29 17:49 | XMS_ITS | Encounter Summary ---
Author Organization [facility] Address [address] [place] [address] Care Team Providers Care Residential Property Consultant Name Role Phone Dara Tavera Primary Care Provider Encounter Details Date Type Department Care Team (Late st Contact Info) Description 07/31/1997 Outpatient Historical [facility] Social History Tobacco Use Types Packs/Day Years Used Date Smoking Tobacco: Never Assessed Comments Unknown Sex and Gender Information Value Date Recorded Sex Assigned at Not on file Legal Sex Female 5:22 AM MEDICAL FIELD REPRESENTATIVE Gender Identity Not on file Sexual Orientation Not on file documented as of this encounter Plan of Treatment Not on file documented as of this encounter Visit Diagnoses Not on filedocumented in this encounter Additional Health Concerns Infection Onset Date Last Indicated Resolved Time 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
--- OUTSIDE RECORDS SUMMARY | 2025-04-29 17:49 | XMS_ITS | Encounter Summary ---
Author Organization [facility] Address [address] [place] [address] Care Team Providers Care Dairy Farm Manager Name Role Phone Dara Tavera Primary Care Provider Encounter Details Date Type Department Care Team (Latest Contact Info) Description 12/01/2003 Outpatient Historical [facility] Urology- [address]tr[address], 3rd [place] [address] Hossein Blair MD NO ADDRESS ON FILE FEMALE STRESS INCONTINENCE (Primary Dx); ENURESIS NOS Social History Tobacco Use Types Packs/Day Years Used Date Smoking Tobacco: Never Assessed Comments Unknown Sex and Gender Information Value Date Recorded Sex Assigned at Not on file Legal Sex Female 5:22 AM IT PROGRAMMER Gender Identity Not on file Sexual Orientation Not on file documented as of this encounter Plan of Treatment Not on file documented as of this encounter Visit Diagnoses Diagnosis Female stress incontinence- Primary Unspecified urinary incontinence documented in this encounter Additional Health Concerns Infection Onset Date Last Indicated Resolved Time VRE Comment:Urine 10/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
--- OUTSIDE RECORDS SUMMARY | 2025-04-29 17:49 | XMS_ITS | Encounter Summary ---
Author Organization [facility] Address [address] [place] [address] Care Team Providers Care Slitter Creaser Slotter Helper Name Role Phone Dara Tavera Primary Care Provider [phone] Encounter Details Date Type Department Care Team (Late st Contact Info) Description 05/30/2005 Outpatient Historical [facility] Pain Management Procedures [address] [place] [address] Prasad Carpenter MD NO ADDRESS ON FILE Social History Tobacco Use Types Packs/Day Years Used Date Smoking Tobacco: Never Assessed Comments Unknown Sex and Gender Information Value Date Recorded Sex Assigned at Not on file Legal Sex Female 5:22 AM COIL REWIND MACHINE OPERATOR Gender Identity Not on file Sexual Orientation Not on file documented as of this encounter Plan of Treatment Not on file documented as of this encounter Visit Diagnoses Not on filedocumented in this encounter Additional Health Concerns Infection Onset Date Last Indicated Resolved Time VRE Comment:Urine 10/30/13 Resolved 11/04/2013 11/04/2013 8 10:33 AM COIL REWIND MACHINE OPERATOR R/O COVID-19 12/25/2019 12/25/2019 12/26/2019 2:46 PM CDT R/O COVID-19 05/09/2020 05/09/2020 05/09/2020 12:1 7 PM COIL REWIND MACHINE OPERATOR documented as of this encounter Care Teams Slitter Creaser Slotter Helper Relationship Specialty Start Date End Date Dara Tavera FNP [address] [place] [address] PCP - General NURSE PRACTITIONER 10/13/18 documented as of this encounter
--- OUTSIDE RECORDS SUMMARY | 2025-04-29 17:49 | XMS_ITS | Encounter Summary ---
Author Organization [facility] Address [address] [place] [address] Care Team Providers Care Supervisor Incising Name Role Phone Dara Tavera Primary Care Provider Encounter Details Date Type Department Care Team (Latest Contact Info) Description 05/16/[address] [facility] Pain Management- [place] [address] [place] [address] Prasad Carpenter MD NO ADDRESS ON FILE DISORDERS OF SACRUM (Primary Dx); LUMBAGO Social History Tobacco Use Types Packs/Day Years Used Date Smoking Tobacco: Never Assessed Comments Unknown Sex and Gender Information Value Date Recorded Sex Assigned at Not on file Legal Sex Female 5:22 AM TUMBLING BARREL PAINTER Gender Identity Not on file Sexual Orientation Not on file documented as of this encounter Plan of Treatment Not on file documented as of this encounter Visit Diagnoses Diagnosis Disorders of sacrum- Primary Lumbago documented in this encounter Additional Health Concerns Infection Onset Date Last Indicated Resolved Time VRE Comment:Urine 10/30/13 Resolved 11/04/2013 11/04/2013 8 10:33 AM TUMBLING BARREL PAINTER R/O COVID-19 12/25/2019 12/25/2019 12/26/2019 2:46 PM CDT R/O COVID-19 05/09/2020 05/09/2020 05/09/2020 12:1 7 PM TUMBLING BARREL PAINTER documented as of this encounter Care Teams Supervisor Incising Relationship Specialty Start Date End Date Dara Tavera FNP [address] [place] [address] PCP - General NURSE PRACTITIONER 10/13/18 documented as of this encounter
--- OUTSIDE RECORDS SUMMARY | 2025-04-29 17:49 | XMS_ITS | Encounter Summary ---
Author Organization [facility] Address [address] [place] [address] Care Team Providers Care Drug Department Worker Name Role Phone Dara Tavera Primary Care Provider Encounter Details Date Type Department Care Team (Latest Contact Info) Description 04/27/[address] [facility] Behavioral Clinical Services [address] [place] [address] Oniel Upton MD NO ADDRESS ON FILE SCHIZOAFFECTIVE-UNSP EC ([facility]/HCC) (Primary Dx) Social History Tobacco Use Types Packs/Day Years Used Date Smoking Tobacco: Never Assessed Comments Unknown Sex and Gender Information Value Date Recorded Sex Assigned at Not on file Legal Sex Female 5:22 AM CHIEF FUNDRAISING OFFICER Gender Identity Not on file Sexual Orientation Not on file documented as of this encounter Plan of Treatment Not on file documented as of this encounter Visit Diagnoses Diagnosis Schizoaffective disorder, unspecified condition ([facility]/HCC)- Primary Schizoaffective disorder, unspecified condition documented in this encounter Additional Health Concerns Infection Onset Date Last Indicated Resolved Time VRE Comment:Urine 10/30/13 Resolved 11/04/2013 11/04/2013 8 10:33 AM CHIEF FUNDRAISING OFFICER R/O COVID-19 12/25/2019 12/25/2019 12/26/2019 2:46 PM CDT R/O COVID-19 05/09/2020 05/09/2020 05/09/2020 12:1 7 PM CHIEF FUNDRAISING OFFICER documented as of this encounter Care Teams Drug Department Worker Relationship Specialty Start Date End Date Dara Tavera FNP [address] [place] [phone] PCP - General NURSE PRACTITIONER 10/13/18 documented as of this encounter
--- OUTSIDE RECORDS SUMMARY | 2025-04-29 17:49 | XMS_ITS | Encounter Summary ---
Author Organization [facility] Address [address] [place] [address] Care Team Providers Care Service Cashier Name Role Phone Dara Tavera Primary Care Provider Encounter Details Date Type Department Care Team (Latest Contact Info) Description 07/02/2003 Outpatient Historical [facility] Imaging Services [address] [place] [address] Hossein Blair MD NO ADDRESS ON FILE RENAL & URETERAL DIS NOS (Primary Dx) Social History Tobacco Use Types Packs/Day Years Used Date Smoking Tobacco: Never Assessed Comments Unknown Sex and Gender Information Value Date Recorded Sex Assigned at Not on file Legal Sex Female 5:22 AM WINDOWS PHONE DEVELOPER Gender Identity Not on file Sexual Orientation Not on file documented as of this encounter Plan of Treatment Not on file documented as of this encounter Visit Diagnoses Diagnosis Unspecified disorder of kidney and ureter- Primary documented in this encounter Additional Health Concerns Infection Onset Date Last Indicated Resolved Time VRE Comment:Urine 10/30/13 Resolved 11/04/2013 11/04/2013 10:33 AM WINDOWS PHONE DEVELOPER R/O COVID-19 12/25/2019 12/25/2019 12/26/2019 2:46 PM CDT R/O COVID-19 05/09/2020 05/09/2020 05/09/2020 12:1 7 PM WINDOWS PHONE DEVELOPER documented as of this encounter Care Teams Service Cashier Relationship Specialty Start Date End Date Dara Tavera FNP [address] [place] [address] PCP - General NURSE PRACTITIONER 10/13/18 documented as of this encounter
--- OUTSIDE RECORDS SUMMARY | 2025-04-29 17:49 | XMS_ITS | Encounter Summary ---
Author Organization [facility] Address [address] [place] [address] Care Team Providers Care Accelerator Systems Director Name Role Phone Daar Tavera Primary Care Provider Encounter Details Date Type Department Care Team (Latest Contact Info) Description 05/28/2003 Outpatient [facility] Behavioral Clinical Services [address] [place] [address] Oniel Upton MD NO ADDRESS ON FILE SCHIZOAFFECTIVE-UNSP EC ([facility]/HCC) (Primary Dx) Social History Tobacco Use Types Packs/Day Years Used Date Smoking Tobacco: Never Assessed Comments Unknown Sex and Gender Information Value Date Recorded Sex Assigned at Not on file Legal Sex Female 5:22 AM SECOND VP HR ASSESSMENT Gender Identity Not on file Sexual Orientation Not on file documented as of this encounter Plan of Treatment Not on file documented as of this encounter Visit Diagnoses Diagnosis Schizoaffective disorder, unspecified condition ([facility]/HCC)- Primary Schizoaffective disorder, unspecified condition documented in this encounter Additional Health Concerns Infection Onset Date Last Indicated Resolved Time VRE Comment:Urine 10/30/13 Resolved 11/04/2013 11/04/2013 8 10:33 AM SECOND VP HR ASSESSMENT R/O COVID-19 12/25/2019 12/25/2019 12/26/2019 2:46 PM CDT R/O COVID-19 05/09/2020 05/09/2020 05/09/2020 12:1 7 PM SECOND VP HR ASSESSMENT documented as of this encounter Care Teams Accelerator Systems Director Relationship Specialty Start Date End Date Dara Tavera FNP [address] [place] [address] PCP - General NURSE PRACTITIONER 10/13/18 documented as of this encounter
--- OUTSIDE RECORDS SUMMARY | 2025-04-29 17:49 | XMS_ITS | Encounter Summary ---
Author Organization [employer] Address [address] [place] [address] Care Team Providers Care Dispatcher Motor Vehicle Name Role Phone Dara Tavera Primary Care Provider [phone] Encounter Details Date Type Department Care Team (Latest Contact Info) Description 07/24/2003 Outpatient Historical [facility] ABRASION FOREARM (Primary Dx) Social History Tobacco Use Types Packs/Day Years Used Date Smoking Tobacco: Never Assessed Comments Unknown Sex and Gender Information Value Date Recorded Sex Assigned at Not on file Legal Sex Female 5:22 AM ANTHROPOLOGY DEPARTMENT CHAIR Gender Identity Not on file Sexual Orientation [...] 10/30/13 Resolved 11/04/2013 11/04/2013 8 10:33 AM ANTHROPOLOGY DEPARTMENT CHAIR R/O COVID-19 12/25/2019 12/25/2019 12/26/2019 2:46 PM CDT R/O COVID-19 05/09/2020 05/09/2020 05/09/2020 12:1 7 PM ANTHROPOLOGY DEPARTMENT CHAIR documented as of this encounter Care Teams Dispatcher Motor Vehicle Relationship Specialty Start Date End Date Dara Tavera FNP [address] [place] [address] PCP - General NURSE PRACTITIONER 10/13/18 documented as of this encounter
--- OUTSIDE RECORDS SUMMARY | 2025-04-29 17:50 | XMS_ITS | Encounter Summary ---
Author Organization [facility] Address [address] [place] [address] Care Team Providers Care Soa Architect Name Role Phone Dara Tavera AMANDEEP Primary Care Provider Encounter Details Date Type Department Care Team (Latest Contact Info) Description 04/22/2008 Outpatient Historical [facility] [address] [place] [address] AMBULANCE, [facility] Aphasia; Unspecified Tachycardia; Chronic Airway Obstruction, not [...] Legal Sex Female 5:22 AM OIL WELL CABLE TOOL DRILLER Gender Identity Not on file Sexual Orientation [...] 11/04/2013 11/04/2013 8 10:33 AM OIL WELL CABLE TOOL DRILLER R/O COVID-19 12/25/2019 12/25/2019 12/26/2019 2:46 PM CDT R/O COVID-19 05/09/2020 05/09/2020 05/09/2020 12:1 7 PM OIL WELL CABLE TOOL DRILLER documented as of this encounter Care Teams Soa Architect Relationship Specialty Start Date End Date Dara Tavera FNP [address] [place] [address] PCP - General NURSE PRACTITIONER 10/13/18 documented as of this encounter
--- OUTSIDE RECORDS SUMMARY | 2025-04-29 17:50 | XMS_ITS | Encounter Summary ---
Author Organization [facility] Address [address] [place] [address] Care Team Providers Care Software Packager Name Role Phone Dara Tavera AMANDEEP Primary Care Provider Encounter Details Date Type Department Care Team (Late st Contact Info) Description 08/05/2007 Emergency [facility] Emergency Department [address] [place] [address] Ed, Physician NO ADDRESS ON [...] file Legal Sex Female 5:22 AM PROJECT DEVELOPMENT DIRECTOR Gender Identity Not on file Sexual Orientation Not on file documented as of this encounter Plan of Treatment Not on file documented as of this encounter Procedures Procedure Name Priority Date/Time Associated Diagnosis Comments CT HEAD WO CONTRAST Routine 08/05/2007 6 :19 PM PROJECT DEVELOPMENT DIRECTOR XR CHEST PA AND LATERAL 2 VW Routine 08/05/2007 5:14 PM PROJECT DEVELOPMENT DIRECTOR CBC WITH DIFFERENTIAL Stat 08/05/2007 4:15 PM PROJECT DEVELOPMENT DIRECTOR BASIC METABOLIC PANEL Stat 08/05/2007 4:15 PM PROJECT DEVELOPMENT DIRECTOR documented in this encounter Results * CT HEAD WO CONTRAST (08/05/2007 6:19 PM PROJECT DEVELOPMENT DIRECTOR) Anatomical Region Laterality Modality Head Other 08/05/2007 6:19 PM PROJECT DEVELOPMENT DIRECTOR Narrative 08/05/2007 6:33 PM PROJECT DEVELOPMENT DIRECTOR The posterior fossa is grossly normal. The [...] CHEST PA AND LATERAL (08/05/2007 5:14 PM PROJECT DEVELOPMENT DIRECTOR) Anatomical Region Laterality Modality Chest Other 08/05/2007 5:14 PM PROJECT DEVELOPMENT DIRECTOR Narrative 08/05/2007 7:38 PM PROJECT DEVELOPMENT DIRECTOR The heart and mediastinum are normal in [...] (ABNORMAL) CBC WITH DIFFERENTIAL (08/05/2007 4:15 PM PROJECT DEVELOPMENT DIRECTOR) EOSINOPHIL ABSOLUTE 0.3 0.0 - 0.7 K/ul [facility] RBC 4.46 4.20 - 5.40 Mil/ul [facility] LYMPHOCYTES 31.5 24.0 - 44.0 % [facility] MCHC 33.2 30.0 - 35.0 g/dL [facility] LYMPHOCYTE ABSOLUTE 2.6 1.2 - 4.0 K/ul [facility] MCV 87.0 84.0 - 103.[address] [facility] MPV 9.8 8.9 - 12.[address] [facility] BASOPHILS ABSOLUTE 0.1 0.0 - 0.2 K/ul [facility] BASOPHILS 0.6 0.0 - 1.0 % [facility] HEMOGLOBIN 12.9 12.0 - 16.0 g/dL [facility] RDW 14.6(H) 11.0 - 14.5 % [facility] MONOCYTE ABSOLUTE 0.7(H) 0.1 - 0.6 K/ul [facility] MONOCYTES 7.7 2.0 - 10.0 % [facility] WBC 8.4 4.5 - 11.0 K/ul [facility] MCH 28.9 27.0 - 34.[address] [facility] NEUTROPHIL ABSOLUTE 4.8 2.0 - 8.0 K/ul [facility] NEUTROPHILS 56.7 42.2 - 75.2 % [facility] HEMATOCRIT 38.8 36.0 - 46.0 % [facility] EOSINOPHILS 3.5 0.0 - 7.0 % [facility] PLATELETS 232 140 - 440 K/ul [facility] Blood specimen (specimen) 08/05/2007 4:15 PM PROJECT DEVELOPMENT DIRECTOR 08/05/2007 4:26 PM PROJECT DEVELOPMENT DIRECTOR Hemant Bran MD HEMATOLOGY ORDERABLES Destiny l Result Performing Organization Address [facility] de Phone Number [facility] [address] [place] [address] * (ABNORMAL) BASIC METABOLIC PANEL (08/05/2007 4:15 PM PROJECT DEVELOPMENT DIRECTOR) ANION GAP 9 9 - 20 mEq/L [facility] BUN 14 7 - 17 mg/dL [facility] CO2 19(L) 22 - 32 mmol/l [facility] OSMOLALITY, CALCULATED 290 275 - 295 mOsm/Kg [facility] POTASSIUM 3.9 3.5 - 5.0 mEq/L [facility] CREATININE 0.9 0.7 - 1.2 mg/dL [facility] CALCIUM 9.4 8.4 - 10.5 mg/dL [facility] GLUCOSE 105 70 - 110 mg/dL [facility] CHLORIDE 117(H) 95 - 110 mEq/L [facility] SODIUM 141 136 - 145 mEq/L [facility] Blood specimen (specimen) 08/05/2007 4:15 PM PROJECT DEVELOPMENT DIRECTOR 08/05/2007 4:26 PM PROJECT DEVELOPMENT DIRECTOR Hemant Bran MD CHEMISTRY ORDERABLES Final Result Performing Organization Address [facility] de Phone Number [facility] [address] [place] [address] documented in this encounter Visit Diagnoses Diagnosis [...] Resolved 11/04/2013 11/04/2013 8 10:33 AM PROJECT DEVELOPMENT DIRECTOR R/O COVID-19 12/25/2019 12/25/2019 12/26/2019 2:46 PM CDT R/O COVID-19 05/09/2020 05/09/2020 05/09/2020 12:1 7 PM PROJECT DEVELOPMENT DIRECTOR documented as of this encounter Care Teams Software Packager Relationship Specialty Start Date End Date Dara Tavera FNP [address] [place] [address] PCP - General NURSE PRACTITIONER 10/13/18 documented as of this encounter
--- OUTSIDE RECORDS SUMMARY | 2025-04-29 17:50 | XMS_ITS | Encounter Summary ---
Author Organization [facility] Address [address] [place] [address] Care Team Providers Care Suit Maker Name Role Phone Dara Tavera AMANDEEP Primary Care Provider Encounter Details Date Type Department Care Team (Latest Contact Info) Description 04/01/2008 Outpatient Historical [facility] [address] [place] [address] AM[address]ULANCE, [facility] Unspecified Asthma; Unspecified Nonpsychotic Mental Disorder; Other Convulsions (CMS/HCC); Tobacco Use Disorder; Personal History of Allergy to Analgesic Agent; Personal History of Allergy to Other Specified Medicinal Agents Social History Tobacco Use Types Packs/Day Years Used Date Smoking Tobacco: Never Assessed Comments Unknown Sex and Gender Information Value Date Recorded Sex Assigned at Not on file Legal Sex Female 5:22 AM FRONT END ALIGNMENT SPECIALIST Gender Identity Not on file Sexual [...] Resolved 11/04/2013 11/04/2013 8 10:33 AM FRONT END ALIGNMENT SPECIALIST R/O COVID-19 12/25/2019 12/25/2019 12/26/2019 2:46 PM CDT R/O COVID-19 05/09/2020 05/09/2020 05/09/2020 12:1 7 PM FRONT END ALIGNMENT SPECIALIST documented as of this encounter Care Teams Suit Maker Relationship Specialty Start Date End Date Dara Tavera FNP [address] [place] [phone] PCP - General NURSE PRACTITIONER 10/13/18 documented as of this encounter
--- OUTSIDE RECORDS SUMMARY | 2025-04-29 17:50 | XMS_ITS | Encounter Summary ---
Author Organization [facility] Address [address] [place] [address] Care Team Providers Care Hotel Operation Manager Name Role Phone Dara Tavera Primary Care Provider Encounter Details Date Type Department Care Team (Latest Contact Info) Description 07/02/1997 Outpatient Historical [facility] Roney Arora MD [address] [facility] [address] [place] [address] Unspecified osteomyelitis, other specified site (Primary Dx) Social History Tobacco Use Types Packs/Day Years Used Date Smoking Tobacco: Never Assessed Comments Unknown Sex and Gender Information Value Date Recorded Sex Assigned at Not on file Legal Sex Female 5:22 AM OPEN WINDER Gender Identity Not on file Sexual Orientation Not on file documented as of this encounter Plan of Treatment Not on file documented as of this encounter Visit Diagnoses Diagnosis Unspecified osteomyelitis, other specified site- Primary documented in this encounter Additional Health Concerns Infection Onset Date Last Indicated Resolved Time VRE Comment:Urine 10/30/13 Resolved 11/04/2013 11/04/2013 8 10:33 AM OPEN WINDER R/O COVID-19 12/25/2019 12/25/2019 12/26/2019 2:46 PM CDT R/O COVID-19 05/09/2020 05/09/2020 05/09/2020 12:1 7 PM OPEN WINDER documented as of this encounter Care Teams Hotel Operation Manager Relationship Specialty Start Date End Date Dara Tavera FNP [address] [place] [phone] PCP - General NURSE PRACTITIONER 10/13/18 documented as of this encounter
--- OUTSIDE RECORDS SUMMARY | 2025-04-29 17:50 | XMS_ITS | Clinical Summary ---
Author Organization [facility] Address [address] [place] [address] Care Team Providers Care Member Services Representative Name Role Phone Sally Dogn MD Primary Care Provider [phone] Allergies Active Allergy Reactions Criticality Noted Date Comments Adhesive Rash Low 02/12/2009 Codeine Nausea and Vomiting Low 02/12/2009 Duloxetine Other (See Comments) 02/24/2015 Fentanyl Hives High 11/07/2019 Fluoxetine Unknown 10/20/2018 Gabapentin Unknown,Hallucination Low 02/12/2009 Haloperidol Unknown 01/04/2022 Tardive dyskinesia Ketorolac Tromethamine Other (See Comments) Low Adverse drug reaction Tightwad Unknown 02/12/2009 Other reaction(s): shakey Metoclopramide Hcl [...] for Nausea/Emesis. Active naloxone (NARCAN) 4 mg/spray [place], Non-Aerosol EMERGENCY USE ONLY: Administer 1 spray [...] Hematochezia 07/07/2009 10/26/2012 Personal history of MRSA (ri thicillin resistant Staphylococcus aureus) 06/27/2009 018 Overview (10/14/2020): Under the arm abscess ~ 2014 Fever and chills 02/12/2009 10/26/2012 Hypoxemia 02/12/2009 04/06/2014 Encounters Date Type Department Care Team Description 04/20/2025 5:25 AM MAORI PHYSIOTHERAPIST - 04/20/2025 11:59 PM MAORI PHYSIOTHERAPIST Hospital Encounter [facility] [place] [address] [facility] [address] [place] [address] Ambulance, [facility] Discharge Disposition: Short term [facility] 04/19/2025 8:27 PM CDT - 04/19/2025 9:59 PM CDT Emergency [facility] Emergency Medicine [address] [facility] [address] [place] [address] Tommy Matthews MD Sprain of right shoulder, unspecified shoulder sprain type, initial encounter (Primary Dx) Discharge Disposition: Home or Self Care 04/19/2025 Travel 04/10/2025 1:07 PM CDT - 04/10/2025 11:59 PM CDT Hospital Encounter [facility] [address] [facility] [address] [place] [address] AyseDara, BAND MACHINE OPERATOR Discharge Disposition: Home or Self Care 04/10/2025 Orders Only [facility] Admitting [address] [facility] [address] [place] [address] AyseDara guzmán, BAND MACHINE OPERATOR Low back pain with sciatica, sciatica laterality unspecified, unspecified back pain laterality, unspecified chronicity (Primary Dx) 04/07/2025 10:00 PM CDT - 04/08/2025 12:56 AM CDT Emergency [facility] Emergency Medicine [address] [place] [address] Tommy Matthews MD Right flank pain (Primary Dx) Discharge Disposition: Home or Self Care 04/07/2025 Travel 03/23/2025 12:30 AM CDT - 03/23/2025 11:59 PM CDT Hospital Encounter [facility] [address] [place] [address] Ambulance, [facility] Discharge Disposition: [facility] 03/18/2025 8:36 AM CDT - 03/18/2025 10:03 AM CDT Emergency [facility] Emergency Medicine [address] [place] [address], [place] [address] Neck pain (Primary Dx) Discharge Disposition: Home or Self Care 03/08/2025 5:56 PM CDT - 03/08/2025 9:25 PM CDT Emergency [facility] Emergency Medicine [address] [place] [address], [place] [address] Anand Bower DO Flank pain (Primary Dx) Discharge Disposition: Home or Self Care 03/08/2025 Travel 03/02/2025 1:05 PM CDT - 03/02/2025 11:59 PM CDT Hospital Encounter [facility] [address] [place] [address] Ambulance, [facility] Discharge Disposition: [facility] 02/20/2025 8:40 PM CDT - 02/20/2025 10:04 PM CDT Emergency [facility] Emergency Medicine [address] [facility] [address] [place] [address] Tommy Matthews MD Chronic neck pain (Primary Dx) Discharge Disposition: Home or Self Care 02/20/2025 Travel 02/15/2025 4:28 PM CDT - 02/15/2025 5:10 PM CDT Emergency [facility] [address] [facility] [address] [place] [address] Neck muscle spasm (Primary Dx) Discharge Disposition: Home or Self Care 02/11/2025 10:49 AM CDT - 02/11/2025 11:59 PM CDT Hospital Encounter [facility] [address] [place] [address] Dara Tavera FNP Discharge Disposition: Home or Self Care 02/11/2025 Orders Only [facility] Admitting [address] [place] [address] Dara Tavera FNP Cervicalgia (Primary Dx) 02/09/2025 9:24 AM CDT - 02/09/2025 10:00 AM CDT Emergency [facility] [address] [place] [address] Tommy Matthews MD Cervicalgia (Primary Dx) Discharge Disposition: Home or Self Care 02/09/2025 - 02/09/2025 11:59 PM CDT Hospital Encounter [facility] [address] [facility] [address] [place] [address] Ambulance, [facility] Discharge Disposition: [facility] hospital 02/09/2025 Travel 02/01/2025 5:38 PM CDT - 02/01/2025 7:27 PM CDT Emergency [facility] Emergency Medicine [address] [place] [address] Tommy Matthews MD Abdominal pain, unspecified abdominal location (Primary Dx); Chest pain, unspecified type Discharge Disposition: Home or Self Care 02/01/2025 - 02/01/2025 11:59 PM CDT Hospital Encounter [facility] Emergency Medical Services [place] [address] [place] [address] Ambulance, [facility] Discharge Disposition: [facility] 02/01/2025 Travel from Last 3 Months Immunizations Immunization [...] asked 05/05/2019 How often do you attend zoroastrian or church serv ices? Not asked 05/05/2019 Do you belong to any clubs o r organizations such as zoroastrian groups, unions, fraternal or athletic groups, or [...] worry about transportation for future doctor visits, pick up man medication, etc.? No 2024 Housing Stability Answer [...] PM CDT Legal Sex Female 2:06 AM MAORI PHYSIOTHERAPIST Gender Identity Female 03/25/2024 4:14 PM CDT [...] WITH DIFFERENTIAL Stat 02/01/2025 5:53 PM CDT HEMOGLOBIN A1C Routine 06/17/2018 7:12 AM MAORI PHYSIOTHERAPIST from Last 3 Months or Most Recently [...] spine degenerative changes and scoliosis. Dara Tavera BAND MACHINE OPERATOR DIAGNOSTIC IMAGING ORDERABL ES Final Result * (ABNORMAL) CBC WITH DIFFERENTIAL (04/07/2025 11:58 PM CDT) Only the most recent of3 resultswithin the time period is included. WBC 16.1(H) 4.0 - 10.0 K/uL 04/08/2025 12:26 AM [facility] RBC 3.99 3.93 - 5.22 M/uL 04/08/2025 12:26 AM [facility] HEMOGLOBIN 13.3 11.2 - 15.7 g/dL 04/08/2025 12:26 AM [facility] HEMATOCRIT 38.3 34.1 - 44.9 % 04/08/2025 12:26 AM [facility] MCV 96.0(H) 79.4 - 94.8 fL 04/08/2025 12:26 AM [facility] MCH 33.3(H) 25.6 - 32.2 pg 04/08/2025 12:26 AM [facility] MCHC 34.7 32.2 - 35.5 g/dL 04/08/2025 12:26 AM [facility] RDW 12.7 11.0 - 14.5 % 04/08/2025 12:26 AM [facility] RDW-STDEV 44.9 36.9 - 56.9 fL 04/08/2025 12:26 AM [facility] PLATELETS 234 163 - 337 K/uL 04/08/2025 12:26 AM [facility] MPV 9.8(L) 10.0 - 14.8 fL 04/08/2025 12:26 AM [facility] NEUTROPHILS 75(H) 34 - 71 % 04/08/2025 12:26 AM [facility] LYMPHOCYTES 16(L) 19 - 52 % 04/08/2025 12:26 AM [facility] MONOCYTES 6 5 - 13 % 04/08/2025 12:26 AM [facility] EOSINOPHILS 2 1 - 6 % 04/08/2025 12:26 AM [facility] BASOPHILS 1 0 - 1 % 04/08/2025 12:26 AM [facility] IMMATURE GRANULOCYTES 0 % 04/08/2025 12:26 AM [facility] NEUTROPHIL ABSOLUTE 12.05(H) 1.56 - 6.13 K/uL 04/08/2025 12:26 AM [facility] LYMPHOCYTE ABSOLUTE 2.57 1.20 - 3.40 K/uL 04/08/2025 12:26 AM [facility] MONOCYTE ABSOLUTE 0.99(H) 0.24 - 0.36 K/uL 04/08/2025 12:26 AM [facility] EOSINOPHIL ABSOLUTE 0.27 0.04 - 0.36 K/uL 04/08/2025 12:26 AM [facility] BASOPHILS ABSOLUTE 0.12(H) 0.01 - 0.08 K/uL 04/08/2025 12:26 AM CDT [facility] IMMATURE GRANULOCYTES ABSOLUTE 0.05 K/uL 04/08/2025 12:26 AM CDT [facility] Blood BLOOD SPECIMEN / Unknown Collection / Unknown 04/07/2025 11:58 PM CDT 04/08/2025 12:22 AM CDT Tommy Matthews MD HEMATOLOGY ORDERABLES Fi nal Result [facility] CLIA # [id number] [address] [place] [address] * LIPASE (04/07/2025 11:58 PM CDT) Only the most recent of2 resultswithin the time period is included. LIPASE 20 13 - 60 U/L 04/08/2025 12:42 AM CDT [facility] Blood BLOOD SPECIMEN / Unknown Collection / Unknown 04/07/2025 11:58 PM CDT 04/08/2025 12:22 AM CDT Tomym Matthews MD CHEMISTRY ORDERABLES Fin al Result Performing Organization Address City/[facility]/ZIP Co de Phone Number [facility] CLIA # [id number] [address] [place] [phone] * (ABNORMAL) COMPREHENSIVE METABOLIC PANEL (04/07/2025 11:58 PM CDT) Only the most recent of3 resultswithin the time period is included. SODIUM 134(L) 136 - 145 mmol/L 04/08/2025 12:42 AM CDT [facility] POTASSIUM 3.7 3.5 - 5.1 mmol/L 04/08/2025 12:42 AM CDT [facility] CHLORIDE 99 98 - 107 mmol/L 04/08/2025 12:42 AM CDT [facility] CO2 24 22 - 29 mmol/L 04/08/2025 12:42 AM CDT [facility] CALCIUM 9.9 8.6 - 10.0 mg/dL 04/08/2025 12:42 AM [facility] BUN 14 6 - 20 mg/dL 04/08/2025 12:42 AM [facility] CREATININE 0.97(H) 0.51 - 0.95 mg/dL 04/08/2025 12:42 AM [facility] GLUCOSE 100(H) 74 - 99 mg/dL 04/08/2025 12:42 AM [facility] TOTAL PROTEIN 6.7 6.6 - 8.7 g/dL 04/08/2025 12:42 AM [facility] ALBUMIN 4.1 3.5 - 5.2 g/dL 04/08/2025 12:42 AM [facility] BILIRUBIN TOTAL 0.2 0.0 - 1.2 mg/dL 04/08/2025 12:42 AM [facility] ALKALINE PHOSPHATASE 121(H) 35 - 104 U/L 04/08/2025 12:42 AM [facility] AST 16 0 - 35 U/L 04/08/2025 12:42 AM [facility] ALT 10 0 - 35 U/L 04/08/2025 12:42 AM [facility] GFR >60 >=60 mL/min/1.7 3 sq meter 04/08/2025 12:42 AM [facility] Comment:eGFR calculated with 2020 CKD-EPI equation. Vegetarian diet, extremely high or low muscle mass, and may affect results. Cystatin C with Glomerular Filtration Rate is a suitable alternative for these patients. ANION GAP 11 5 - 20 mmol/L 04/08/2025 12:42 AM [facility] Blood BLOOD SPECIMEN / Unknown Collection / Unknown 04/07/2025 11:58 PM CDT 04/08/2025 12:22 AM CDT us Tommy Matthews MD CHEMISTRY ORDERABLES Fin al Result [facility] CLIA # [id number] [address] [address] * CT ABDOMEN PELVIS WO CONTRAST (04/07/2025 11:42 PM CDT) Anatomical Region Laterality Modality Abdomen [...] pole of the right kidney. MACRO: None Tommy Matthews MD CT ORDERABLES Final Re sult * URINALYSIS MICROSCOPY ONLY (04/07/2025 9:30 PM CDT) WBC UA 0-2 0 - 2 /hpf 04/07/2025 9:37 PM CDT [facility] RBC UA 0-2 0 - 2 /hpf 04/07/2025 9:37 PM CDT [facility] BACTERIA UA Negative Negative /hpf 04/07/2025 9:37 PM CDT [facility] EPITHELIAL CELLS, URINE 0-5 0 - 5 /hpf 04/07/2025 9:37 PM CDT [facility] Urine URINE SPECIMEN OBTAINED BY CLEAN CATCH PROCEDURE / Unknown Collection / Unknown 04/07/2025 9:30 PM CDT 04/07/2025 9:34 PM CDT Tommy Matthews MD URINE ORDERABLES Final R esult [facility] CLIA # [id number] [address] [place] [address] * (ABNORMAL) URINALYSIS WITH REFLEX MICROSCOPIC (04/07/2025 9:30 PM CDT) Only the most recent of2 resultswithin the time period is included. COLOR UA Yellow Pale to Dark Yellow 04/07/2025 9:37 PM CDT [facility] CLARITY UA Clear Clear 04/07/2025 9:37 PM CDT [facility] SPECIFIC GRAVITY UA <=1.005 1.003 - 1.035 04/07/2025 9:37 PM CDT [facility] PH UA 6.0 5.0 - 8.0 04/07/2025 9:37 PM CDT [facility] LEUKOCYTE ESTERASE UA 1+(A) Negative 04/07/2025 9:37 PM CDT [facility] NITRITE UA Negative Negative 04/07/2025 9:37 PM CDT [facility] PROTEIN UA Negative Negative 04/07/2025 9:37 PM CDT [facility] GLUCOSE UA Negative Negative 04/07/2025 9:37 PM CDT [facility] KETONES UA Negative Negative 04/07/2025 9:37 PM CDT [facility] UROBILINOGEN UA 0.2 <2.0 mg/dL 9:37 PM CDT [facility] BILIRUBIN UA Negative Negative 04/07/2025 9:37 PM CDT [facility] BLOOD UA Negative Negative 04/07/2025 9:37 PM CDT [facility] Urine URINE SPECIMEN OBTAINED BY CLEAN CATCH PROCEDURE / Unknown Collection / Unknown 04/07/2025 9:30 PM CDT 04/07/2025 9:34 PM CDT Tommy Matthews MD URINE ORDERABLES Final R esult [facility] CLIA # [id number] [address] [place] [address] * XR ABDOMEN 1 VW (03/08/2025 8:06 PM CDT) Anatomical Region Laterality Modality Abdomen Computed Radiogr aphy 03/08/2025 8:06 PM CDT Impressions 03/08/2025 9:17 PM CDT IMPRESSION: Nonobstructive bowel gas pattern. Moderate colonic stool burden. No renal calculi identified. MACRO: None Narrative 03/08/2025 9:17 PM CDT EXAMINATION: XR ABDOMEN 1 VW CLINICAL HISTORY: ASSOCIATED DIAGNOSIS: Kidney Calculus ORDERING PROVIDER: PAPITO LEON TECHNKATELIN NOTE: COMPARISON: Abdominal radiograph 09/21/2024 FINDINGS: The [...] DIAGNOSIS: Kidney Calculus ORDERING PROVIDER: PAPITO LEON TECHNKATELIN NOTE: COMPARISON: Abdominal radiograph 09/21/2024 FINDINGS: The [...] URINE Negative Negative 03/08/2025 6:33 PM CDT [facility] PCP QUAL, URINE Negative Negative 6:33 PM CDT [facility] COCAINE QUAL URINE Negative Negative 2024 6:33 PM CDT [facility] METHAMPHETAMINE QUAL, URINE Negative Negative 03/08/2025 6:33 PM CDT [facility] OPIATE QUAL, URINE Presumptive Positive(A) Negative 03/08/2025 6:33 PM CDT [facility] AMPHETAMINE QUAL, URINE Negative Negative 03/08/2025 6:33 PM CDT [facility] BENZODIAZEPINE QUAL, URINE Presumptive Positive(A) Negative 03/08/2025 6:33 PM CDT [facility] TRICYCLICS QUAL, URINE Presumptive Positive(A) Negative 03/08/2025 6:33 PM CDT [facility] METHADONE QUAL, URINE Negative Negative 03/08/2025 6:33 PM CDT [facility] BARBITURATE QUAL, URINE Negative Negative 03/08/2025 6:33 PM CDT [facility] OXYCODONE QUAL, URINE Negative Negative 03/08/2025 6:33 PM CDT [facility] Urine URINE SPECIMEN OBTAINED BY CLEAN CATCH PROCEDURE / Unknown Collection / Unknown 03/08/2025 6:03 PM CDT 03/08/2025 6:17 PM CDT Narrative [facility] - 03/08/2025 6:33 PM CDT This test [...] Cannabinoids 50 ng/mL Tricyclic Antidepressants 300 ng/mL Anand Bower DO URINE ORDERABLES Final Result [id number] [address] [place] [address] * XR CERVICAL SPINE 2 OR 3 [...] identified. Impression: 1. As above. Dara Tavera BAND MACHINE OPERATOR DIAGNOSTIC IMAGING ORDERABL ES Final Result * [...] 6 <=10 ng/L 02/01/2025 6:42 PM CDT [facility] Blood Venipuncture / Unknown 02/01/2025 5:53 PM CDT 02/01/2025 6:24 PM CDT Narrative [facility] - 02/01/2025 6:42 PM CDT Troponin Detectable but normal range. us Tommy Matthews MD CHEMISTRY ORDERABLES Fin al Result [facility] CLIA # [id number] [address] [place] [address] * (ABNORMAL) BRAIN NATRIURETIC PEPTIDE, BNP OR PROBNP (02/01/2025 5:53 PM CDT) PROBNP, N TERMINAL 260(H) 0 - 125 pg/mL 02/01/2025 6:42 PM CDT [facility] Comment: INTERPRETIVE COMMENT based on diagnosis: Diagnostic [...] Matthews MD CHEMISTRY ORDERABLES Fin al Result [facility] CLIA # [id number] [address] [place], [place] [address] * HEMOGLOBIN A1C (06/17/2018 7:12 AM MAORI PHYSIOTHERAPIST) HEMOGLOBIN A1C 5.2 4.8 - 5.9 % 06/17/2018 9:37 AM MAORI PHYSIOTHERAPIST [facility] EST. AVG GLUCOSE, A1C 103 mg/dL 06/17/2018 9:37 AM MAORI PHYSIOTHERAPIST [facility] Blood Venipuncture / Unknown 06/17/2018 7:12 AM MAORI PHYSIOTHERAPIST 06/17/2018 7:13 AM MAORI PHYSIOTHERAPIST [facility] - 06/17/2018 9:37 AM MAORI PHYSIOTHERAPIST If not available from last three months. HGB A1C INTERPRETATION NORMAL: <5.7% PRE-DIABETES: 5.7 - 6.4% DIABETES: 6.5% OR GREATER Benedicto Mcgill MD CHEMISTRY ORDERABLES Final Result Performing Organization Address City/[facility] Co de Phone Number [facility] CLIA # [id number] [address] [place] [address] [facility] CLIA # [id number] [address] [place] [address] from Last 3 Months or Most Recently Relevant to Health Maintenance Insurance [place] DUAL COMPLETE HMO [facility] [id number] [place] Advance Directives For more information, please contact: [phone] Documents on File Type Date Recorded 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
--- OUTSIDE RECORDS SUMMARY | 2025-04-29 17:50 | XMS_ITS | Encounter Summary ---
Author Organization [facility] Address [address] [place] [address] Care Team Providers Care Research And Development Researcher Name Role Phone Dara Tavera RETURNS PROCESSOR Primary Care Provider Encounter Details Date Type [...] on file Legal Sex Female 5:22 AM MICROSTRATEGY ARCHITECT Gender Identity Not on file Sexual Orientation Not on file documented as of this encounter Progress Notes * Nam Calvo MD - 06/04/2008 9:18 AM CST NAME LATESHA WILHELM PATIENT # [id number] 1965 AGE 42Y PHYSICIAN NAM CALVO [id number] ADMITTED 05/11/2008 DISMISSED 05/12/2008 REVISED DOCUMENT: 07/11/[facility] DISCHARGE DIAGNOSES: 1. Drug overdose. SECONDARY [...] was activated. She was brought in to [facility] where she had head CT. Fortunately, [...] Econazole nitrate cream applied topically. NAM CALVO [id number]/ [id number] REV/BL [id number] - 07/11/2008 - [facility] OSTRATEGY ARCHITECT documented in this encounter Plan of Treatment Not on file documented as of this encounter Procedures Procedure Name Priority Date/Time Associated Diagnosis Comments CARDIAC ENZYMES Routine 05/12/2008 4:45 AM MICROSTRATEGY ARCHITECT CBC WITH DIFFERENTIAL Routine 05/12/2008 4:45 AM MICROSTRATEGY ARCHITECT TSH Routine 05/12/2008 4:45 AM MICROSTRATEGY ARCHITECT COMPREHENSIVE METABOLIC PANEL Routine 05/12/2008 4:45 AM MICROSTRATEGY ARCHITECT CARDIAC ENZYMES Routine 05/11/2008 10:13 PM MICROSTRATEGY ARCHITECT D-DIMER Routine 05/11/2008 10:13 PM MICROSTRATEGY ARCHITECT CARDIAC ENZYMES Routine 05/11/2008 3:50 PM MICROSTRATEGY ARCHITECT XR CHEST PA OR AP 1 VW Routine 8 1:07 PM MICROSTRATEGY ARCHITECT MRSA CULTURE Routine 05/11/2008 10:37 AM MICROSTRATEGY ARCHITECT URINALYSIS W/REFLEX MICROSCOPIC Routine 05/11/2008 5:41 AM MICROSTRATEGY ARCHITECT documented in this encounter Results * (ABNORMAL) CBC WITH DIFFERENTIAL (05/12/2008 4:45 AM MICROSTRATEGY ARCHITECT) HEMATOCRIT 36.0 36.0 - 46.0 % [facility] EOSINOPHILS 5.1 0.0 - 7.0 % [facility] PLATELETS 207 140 - 440 K/ul [facility] EOSINOPHIL ABSOLUTE 0.4 0.0 - 0.7 K/ul [facility] RBC 3.92(L) 4.20 - 5.40 Mil/ul [facility] LYMPHOCYTES 35.9 24.0 - 44.0 % [facility] MCHC 33.3 30.0 - 35.0 g/dL [facility] LYMPHOCYTE ABSOLUTE 2.6 1.2 - 4.0 K/ul [facility] MCV 91.8 84.0 - 103.0 Fl [facility] MPV 10.4 8.9 - 12.8 Fl [facility] BASOPHILS ABSOLUTE 0.1 0.0 - 0.2 K/ul [facility] BASOPHILS 1.1(H) 0.0 - 1.0 % [facility] HEMOGLOBIN 12.0 12.0 - 16.0 g/dL [facility] RDW 14.4 11.0 - 14.5 % [facility] MONOCYTE ABSOLUTE 0.5 0.1 - 0.6 K/ul [facility] MONOCYTES 7.4 2.0 - 10.0 % [facility] WBC 7.2 4.5 - 11.0 K/ul [facility] MCH 30.6 27.0 - 34.0 pg [facility] NEUTROPHIL ABSOLUTE 3.6 2.0 - 8.0 K/ul [facility] NEUTROPHILS 50.5 42.2 - 75.2 % [facility] Blood specimen (specimen) 05/12/2008 4:45 AM MICROSTRATEGY ARCHITECT 05/12/2008 4:45 AM MICROSTRATEGY ARCHITECT Murphy Espitia MD HEMATOLOGY ORDERABLES Final Res ult Performing Organization Address [facility] de Phone Number INTERFACE SYSTEM Refer to clinic/hospital department [facility] CLIA# [id number] [address] [place] [address] * TSH (05/12/2008 4:45 AM MICROSTRATEGY ARCHITECT) TSH 2.120 0.350 - 5.500 uIU/ml [facility] Blood specimen (specimen) 05/12/2008 4:45 AM MICROSTRATEGY ARCHITECT 05/12/2008 4:45 AM MICROSTRATEGY ARCHITECT Murphy Espitia MD CHEMISTRY ORDERABLES Final Resu lt Performing Organization Address [facility] de Phone Number INTERFACE SYSTEM Refer to clinic/hospital department [facility] CLIA# [id number] [address] [place] [address] * (ABNORMAL) COMPREHENSIVE METABOLIC PANEL (05/12/2008 4:45 AM MICROSTRATEGY ARCHITECT) CALCIUM 8.5 8.4 - 10.5 mg/dL [facility] CREATININE 0.8 0.7 - 1.2 mg/dL [facility] ALT 18 4 - 36 IU/L [facility] GLUCOSE 115(H) 70 - 110 mg/dL [facility] CHLORIDE 109 95 - 110 mEq/L [facility] OSMOLALITY, CALCULATED 282 275 - 295 mOsm/Kg [facility] ALKALINE PHOSPHATASE 110(H) 25 - 100 U/L [facility] GLOBULIN (CALC) 2.7 2.4 - 3.9 g/dL [facility] SODIUM 137 136 - 145 mEq/L [facility] BILIRUBIN TOTAL 0.1(L) 0.3 - 1.2 mg/dL [facility] TOTAL PROTEIN 6.2(L) 6.3 - 8.2 g/dL [facility] BUN 9 7 - 17 mg/dL [facility] AST 22 8 - 33 U/L [facility] CO2 24 22 - 32 mmol/l [facility] ALBUMIN/GLOBULIN RATIO 1.3 1.0 - 2.3 [facility] ALBUMIN 3.5 3.5 - 5.0 g/dL [facility] POTASSIUM 4.2 3.5 - 5.0 mEq/L [facility] ANION GAP 8(L) 9 - 20 mEq/L [facility] Blood specimen (specimen) 05/12/2008 4:45 AM MICROSTRATEGY ARCHITECT 05/12/2008 4:45 AM MICROSTRATEGY ARCHITECT Murphy Espitia MD CHEMISTRY ORDERABLES Final Resu lt Performing Organization Address City/[facility] de Phone Number INTERFACE SYSTEM Refer to clinic/hospital department [facility] CLIA# [id number] [address] [place] [address] * CARDIAC ENZYMES (05/12/2008 4:45 AM MICROSTRATEGY ARCHITECT) TROPONIN I <0.1 0.0 - 1.3 ng/mL [facility] CKMB 0.3 0.0 - 5.0 ng/mL [facility] Blood specimen (specimen) 05/12/2008 4:45 AM MICROSTRATEGY ARCHITECT 05/12/2008 4:45 AM MICROSTRATEGY ARCHITECT us Murphy Espitia MD CHEMISTRY ORDERABLES Final Resu lt Performing Organization Address [facility] de Phone Number INTERFACE SYSTEM Refer to clinic/hospital department [facility] CLIA# [id number] [address] [place] [address] * CARDIAC ENZYMES (05/11/2008 10:13 PM MICROSTRATEGY ARCHITECT) TROPONIN I <0.1 0.0 - 1.3 ng/mL [facility] CKMB 0.2 0.0 - 5.0 ng/mL [facility] Blood specimen (specimen) 05/11/2008 10:13 PM MICROSTRATEGY ARCHITECT 05/11/2008 10:13 PM MICROSTRATEGY ARCHITECT Murphy Espitia MD CHEMISTRY ORDERABLES Final Resu lt Performing Organization Address [facility] Phone Number INTERFACE SYSTEM Refer to clinic/hospital department [facility] CLIA# [id number] [address] [place] [address] * D-DIMER (05/11/2008 10:13 PM MICROSTRATEGY ARCHITECT) Pathologist [facility] D-DIMER QUANT 0.4 0.0 - 0.5 mcg/mL [facility] Comment: Testing performed using the STA [...] range. Blood specimen (specimen) 05/11/2008 10:13 PM MICROSTRATEGY ARCHITECT 05/11/2008 10:13 PM MICROSTRATEGY ARCHITECT Murphy Espitia MD HEMATOLOGY ORDERABLES Final Res ult Performing Organization Address [facility] Phone Number INTERFACE SYSTEM Refer to clinic/hospital department [facility] CLIA# [id number] [address] [place] [address] * CARDIAC ENZYMES (05/11/2008 3:50 PM MICROSTRATEGY ARCHITECT) Pathologist [facility] TROPONIN I <0.1 0.0 - 1.3 ng/mL [facility] CKMB 0.2 0.0 - 5.0 ng/mL [facility] Blood specimen (specimen) 05/11/2008 3:50 PM MICROSTRATEGY ARCHITECT 05/11/2008 4:01 PM MICROSTRATEGY ARCHITECT us Murphy Espitia MD CHEMISTRY ORDERABLES Final Resu lt Performing Organization Address [facility] de Phone Number INTERFACE SYSTEM Refer to clinic/hospital department [facility] CLIA# [id number] [address] [place] [address] * XR CHEST PA OR AP (05/11/2008 1:07 PM MICROSTRATEGY ARCHITECT) Anatomical Region Laterality Modality Chest Other 05/11/2008 1:07 PM MICROSTRATEGY ARCHITECT Narrative 05/11/2008 4:41 PM MICROSTRATEGY ARCHITECT Exam: Chest - Portable Date/Time of Exam: [...] Result * MRSA CULTURE (05/11/2008 10:37 AM MICROSTRATEGY ARCHITECT) FINAL REPORT Culture screen for MRSA negative INTERFACE SYSTEM ANTERIOR NARES SWAB / Unknown 05/11/2008 10:37 AM MICROSTRATEGY ARCHITECT 05/11/2008 10:37 AM MICROSTRATEGY ARCHITECT us Murphy Espitia MD MICROBIOLOGY - GENERAL ORDERABL ES Final Result INTERFACE SYSTEM Refer to clinic/hospital department * URINALYSIS (05/11/2008 5:41 AM MICROSTRATEGY ARCHITECT) NITRITE UA NEGATIVE NEGATIVE [facility] UROBILINOGEN UA 0.2 0.2 [facility] CLARITY UA SL CLOUDY Clear [facility] SPECIFIC GRAVITY UA 1.015 <=1.005 [facility] GLUCOSE UA NEGATIVE NEGATIVE [facility] PH UA 8.0 5.0 - 9.0 [facility] BILIRUBIN UA NEGATIVE NEGATIVE [facility] LEUKOCYTE ESTERASE UA NEGATIVE NEGATIVE [facility] KETONES UA NEGATIVE NEGATIVE [facility] MICRO EXAM No No [facility] COLOR UA Yellow Straw [facility] PROTEIN UA NEGATIVE NEGATIVE [facility] BLOOD UA NEGATIVE NEGATIVE [facility] Urine specimen (specimen) 05/11/2008 5:41 AM MICROSTRATEGY ARCHITECT 05/11/2008 5:41 AM MICROSTRATEGY ARCHITECT us Murphy Espitia MD URINE ORDERABLES Final Result Performing Organization Address City/State/[facility] Phone Number INTERFACE SYSTEM Refer to clinic/hospital department [facility] CLIA# [id number] [address] [place] [address] documented in this encounter Visit Diagnoses Diagnosis Poisoning by unspecified drug or medicinal substance(977.9) Poisoning by unspecified drug or medicinal substance documented in this encounter Additional Health Concerns Infection Onset Date Last 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
--- OUTSIDE RECORDS SUMMARY | 2025-04-29 17:50 | XMS_ITS | Encounter Summary ---
Author Organization [facility] Address [address] [place] [address] Care Team Providers Care Supervisor Prepress Name Role Phone Dara Tavera AMANDEEP Primary Care Provider Encounter Details Date Type Department Care Team (Late st Contact Info) Description 08/21/2007 Emergency [facility] Emergency Department [address] [place] [address] Ed, Physician NO ADDRESS ON FILE Flex Ricks MD NO ADDRESS ON FILE Social History Tobacco Use Types Packs/Day Years Used Date Smoking Tobacco: Never Assessed Comments Unknown Sex and Gender Information Value Date Recorded Sex Assigned at Not on file Legal Sex Female 5:22 AM BLIND LACER Gender Identity Not on file Sexual Orientation Not on file documented as of this encounter Plan of Treatment Not on file documented as of this encounter Procedures Procedure Name Priority Date/Time Associated Diagnosis Comments CT ABDOMEN PELVIS WO CONTRAST Routine 08/21/2007 11:56 PM BLIND LACER CBC WITH DIFFERENTIAL Stat 08/21/2007 11:44 PM BLIND LACER BASIC METABOLIC PANEL Stat 08/21/2007 11:44 PM BLIND LACER URINALYSIS W/REFLEX MICROSCOPIC Stat 08/21/2007 10:16 PM BLIND LACER documented in this encounter Results * CT ABDOMEN PELVIS WO CONTRAST (08/21/2007 11:56 PM BLIND LACER) Anatomical Region Laterality Modality Abdomen Other 08/21/2007 11:5 6 PM BLIND LACER Narrative 08/22/2007 12:[address] Scan For Renal Colic: Date: 08/21/2007 [...] * CBC WITH DIFFERENTIAL (08/21/2007 11:44 PM BLIND LACER) LYMPHOCYTE ABSOLUTE 2.5 1.2 - 4.0 K/ul [facility] LYMPHOCYTES 24.0 24.0 - 44.0 % [facility] MCV 88.3 84.0 - 103.0 Fl [facility] BASOPHILS 0.6 0.0 - 1.0 % [facility] MPV 9.8 8.9 - 12.8 Fl [facility] BASOPHILS ABSOLUTE 0.1 0.0 - 0.2 K/ul [facility] HEMOGLOBIN 12.6 12.0 - 16.0 g/dL [facility] MONOCYTES 4.8 2.0 - 10.0 % [facility] RDW 14.0 11.0 - 14.5 % [facility] MONOCYTE ABSOLUTE 0.5 0.1 - 0.6 K/ul [facility] WBC 10.5 4.5 - 11.0 K/ul [facility] NEUTROPHILS 68.9 42.2 - 75.2 % [facility] MCH 28.9 27.0 - 34.0 pg [facility] NEUTROPHIL ABSOLUTE 7.2 2.0 - 8.0 K/ul [facility] HEMATOCRIT 38.5 36.0 - 46.0 % [facility] PLATELETS 284 140 - 440 K/ul [facility] EOSINOPHIL ABSOLUTE 0.2 0.0 - 0.7 K/ul [facility] EOSINOPHILS 1.7 0.0 - 7.0 % [facility] RBC 4.36 4.20 - 5.40 Mil/ul [facility] MCHC 32.7 30.0 - 35.0 g/dL [facility] Blood specimen (specimen) 08/21/2007 11:44 PM BLIND LACER 08/21/2007 11:49 PM BLIND LACER us Flex Ricks MD HEMATOLOGY ORDERABLES Destiny ricks Result [facility] [address] [place] [address] * (ABNORMAL) BASIC METABOLIC PANEL (08/21/2007 11:44 PM BLIND LACER) CREATININE 0.8 0.7 - 1.2 mg/dL [facility] CALCIUM 9.8 8.4 - 10.5 mg/dL [facility] GLUCOSE 94 70 - 110 mg/dL [facility] CHLORIDE 112(H) 95 - 110 mEq/L [facility] SODIUM 139 136 - 145 mEq/L [facility] ANION GAP 11 9 - 20 mEq/L [facility] BUN 16 7 - 17 mg/dL [facility] CO2 20(L) 22 - 32 mmol/l [facility] OSMOLALITY, CALCULATED 286 275 - 295 mOsm/Kg [facility] POTASSIUM 3.6 3.5 - 5.0 mEq/L [facility] Blood specimen (specimen) 08/21/2007 11:44 PM BLIND LACER 08/21/2007 11:49 PM BLIND LACER Flex Ricks MD CHEMISTRY ORDERABLES Final Result [facility] [address] [place] [address] * URINALYSIS (08/21/2007 10:16 PM BLIND LACER) Pathologist [facility] CLARITY UA Clear Clear [facility] GLUCOSE UA NEGATIVE NEGATIVE [facility] SPECIFIC GRAVITY UA 1.025 <=1.005 [facility] PH UA 6.5 5.0 - 9.0 [facility] BILIRUBIN UA NEGATIVE NEGATIVE [facility] LEUKOCYTE ESTERASE UA NEGATIVE NEGATIVE [facility] MICRO EXAM No No [facility] KETONES UA NEGATIVE NEGATIVE [facility] COLOR UA Yellow Straw [facility] PROTEIN UA NEGATIVE NEGATIVE [facility] BLOOD UA NEGATIVE NEGATIVE [facility] NITRITE UA NEGATIVE NEGATIVE [facility] UROBILINOGEN UA 0.2 0.2 [facility] Urine, clean catch 08/21/2007 10:16 PM BLIND LACER 08/21/2007 10:16 PM BLIND LACER us Physician Sj Ed URINE ORDERABLES Final Result Performing Organization Address City/State/[facility] Co de Phone Number [facility] [address] [place] [address] documented in this encounter Visit Diagnoses Not on filedocumented in this encounter Additional Health Concerns Infection Onset Date Last Indicated Resolved Time 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
--- OUTSIDE RECORDS SUMMARY | 2025-04-29 17:50 | XMS_ITS | Encounter Summary ---
Author Organization [facility] Address [address] [place] [address] Care Team Providers Care Manager Product Name Role Phone Dara Tavera Primary Care Provider Encounter Details Date Type Department Care Team (Late st Contact Info) Description 07/03/2007 Outpatient [facility] [address] [place] [address] Tej Will MD [address] [address] Social History Tobacco Use Types Packs/Day Years Used Date Smoking Tobacco: Never Assessed Comments Unknown Sex and Gender Information Value Date Recorded Sex Assigned at Not on file Legal Sex Female 5:22 AM HEEL GOUGER Gender Identity Not on file Sexual Orientation Not on file documented as of this encounter Plan of Treatment Not on file documented as of this encounter Visit Diagnoses Not on filedocumented in this encounter Additional Health Concerns Infection Onset Date Last Indicated Resolved Time 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
--- OUTSIDE RECORDS SUMMARY | 2025-04-29 17:50 | XMS_ITS | Encounter Summary ---
Author Organization [facility] Address [address] [place] [address] Care Team Providers Care Medical Associate Name Role Phone Dara Tavera [facility] Primary Care Provider Encounter Details Date Type Department Care Team (Latest Contact Info) Description 05/10/2008 Outpatient Historical [facility] [address] [place] [address] AMBULANCE, [facility] Other Malaise and Fatigue; Other Speech Disturbance; Unspecified Abnormal Pupillary Function; Esophageal Reflux; Encounter for Long-Term (Current) Use of Other Medications Social History Tobacco Use Types Packs/Day Years Used Date Smoking Tobacco: Never Assessed Comments Unknown Sex and Gender Information Value Date Recorded Sex Assigned at Not on file Legal Sex Female 5:22 AM GEMOLOGIST Gender Identity Not on file Sexual Orientation [...] 10/30/13 Resolved 11/04/2013 11/04/2013 8 10:33 AM GEMOLOGIST R/O COVID-19 12/25/2019 12/25/2019 12/26/2019 2:46 PM CDT R/O COVID-19 05/09/2020 05/09/2020 05/09/2020 12:1 7 PM GEMOLOGIST documented as of this encounter Care Teams Medical Associate Relationship Specialty Start Date End Date Dara Tavera FNP [address] [place] [phone] PCP - General NURSE PRACTITIONER 10/13/18 documented as of this encounter
--- OUTSIDE RECORDS SUMMARY | 2025-04-29 17:50 | XMS_ITS | Encounter Summary ---
Author Organization [facility] Address [address] [place] [address] Care Team Providers Care Non Destructive Evaluation Technician Name Role Phone Dara Tavera Primary Care Provider Encounter Details Date Type Department Care Team (Late st Contact Info) Description 04/07/2008 Outpatient Historical [facility] [address] 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
--- OUTSIDE RECORDS SUMMARY | 2025-04-29 17:50 | XMS_ITS | Encounter Summary ---
Author Organization [facility] Address [address] Bello: [place] [address] Care Team Providers Care Elevator Mechanic Apprentice Name Role Phone Dara Tavera Primary Care Provider Encounter Details Date Type Department Care Team ([facility] st Contact Info) Description 11/12/1999 Outpatient Historical [facility] [place] [facility], [address] [place] [phone] Social History Tobacco Use Types Packs/Day Years Used Date Smoking Tobacco: Never Assessed Comments Unknown Sex and Gender Information Value Date Recorded Sex Assigned at Not on file Legal Sex Female 5:22 AM SUPPORT MERCHANDISER Gender Identity Not on file Sexual Orientation Not on file documented as of this encounter Plan of Treatment Not on file documented as of this encounter Visit Diagnoses Not on filedocumented in this encounter Additional Health Concerns Infection Onset Date Last Indicated Resolved Time 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
--- OUTSIDE RECORDS SUMMARY | 2025-04-29 17:50 | XMS_ITS | Encounter Summary ---
Author Organization [facility] Address [address] [place] [address] Care Team Providers Care Parallel Computing Software Engineer Name Role Phone Dara Tavera AMANDEEP Primary Care Provider Encounter Details Date Type Department Care Team (Late st Contact Info) Description 08/11/2007 Emergency [facility] Emergency Department [address] [place] [address] Ed, Physician NO ADDRESS ON FILE Amaury De La Rosa MD NO ADDRESS ON FILE Social History Tobacco Use Types Packs/Day Years Used Date Smoking Tobacco: Never Assessed Comments Unknown Sex and Gender Information Value Date Recorded Sex Assigned at Not on file Legal Sex Female 5:22 AM CALENDERER Gender Identity Not on file Sexual Orientation Not on file documented as of this encounter Plan of Treatment Not on file documented as of this encounter Procedures Procedure Name Priority Date/Time Associated Diagnosis Comments XR ABDOMEN 1 VW Routine 08/12/2007 4:46 AM CALENDERER CBC WITH DIFFERENTIAL Stat 08/12/2007 4:19 AM CALENDERER LIPASE Stat 08/12/2007 4:19 AM CALENDERER COMPREHENSIVE METABOLIC PANEL Stat 08/12/2007 4:19 AM CALENDERER URINALYSIS W/REFLEX MICROSCOPIC Stat 08/12/2007 3:10 AM CALENDERER documented in this encounter Results * XR ABDOMEN 1 VW (08/12/2007 4:46 AM CALENDERER) Anatomical Region Laterality Modality Abdomen Other 08/12/2007 4:46 AM CALENDERER Narrative 08/12/2007 4:46 AM CALENDERER Exam: KUB Date/Time of Exam: Aug 12, [...] * CBC WITH DIFFERENTIAL (08/12/2007 4:19 AM CALENDERER) RBC 4.56 4.20 - 5.40 Mil/ul [facility] MCHC 33.8 30.0 - 35.0 g/dL [facility] LYMPHOCYTE ABSOLUTE 2.2 1.2 - 4.0 K/ul [facility] LYMPHOCYTES 25.6 24.0 - 44.0 % [facility] MCV 86.4 84.0 - 103.0 Fl [facility] BASOPHILS 0.7 0.0 - 1.0 % [facility] MPV 9.9 8.9 - 12.8 Fl [facility] BASOPHILS ABSOLUTE 0.1 0.0 - 0.2 K/ul [facility] HEMOGLOBIN 13.3 12.0 - 16.0 g/dL [facility] MONOCYTES 6.3 2.0 - 10.0 % [facility] RDW 14.1 11.0 - 14.5 % [facility] MONOCYTE ABSOLUTE 0.5 0.1 - 0.6 K/ul [facility] WBC 8.6 4.5 - 11.0 K/ul [facility] NEUTROPHILS 65.3 42.2 - 75.2 % [facility] MCH 29.2 27.0 - 34.0 pg [facility] NEUTROPHIL ABSOLUTE 5.6 2.0 - 8.0 K/ul [facility] HEMATOCRIT 39.4 36.0 - 46.0 % [facility] PLATELETS 233 140 - 440 K/ul [facility] EOSINOPHIL ABSOLUTE 0.2 0.0 - 0.7 K/ul [facility] EOSINOPHILS 2.1 0.0 - 7.0 % [facility] Blood specimen (specimen) 08/12/2007 4:19 AM CALENDERER 08/12/2007 4:22 AM CALENDERER us Amaury De La Rosa MD HEMATOLOGY ORDERABLES Final Resu lt [facility] [address] [place] [address] * (ABNORMAL) COMPREHENSIVE METABOLIC PANEL (08/12/2007 4:19 AM CALENDERER) GLUCOSE 99 70 - 110 mg/dL [facility] ALKALINE PHOSPHATASE 134(H) 25 - 100 U/L [facility] CHLORIDE 108 95 - 110 mEq/L [facility] ALBUMIN/GLOBULIN RATIO 1.4 1.0 - 2.3 [facility] TOTAL PROTEIN 7.8 6.3 - 8.2 g/dL [facility] SODIUM 136 136 - 145 mEq/L [facility] BILIRUBIN TOTAL 0.2(L) 0.3 - 1.2 mg/dL [facility] BUN 20(H) 7 - 17 mg/dL [facility] CO2 23 22 - 32 mmol/l [facility] ANION GAP 9 9 - 20 mEq/L [facility] AST 20 8 - 33 U/L [facility] POTASSIUM 4.1 3.5 - 5.0 mEq/L [facility] GLOBULIN (CALC) 3.3 2.4 - 3.9 g/dL [facility] ALBUMIN 4.5 3.5 - 5.0 g/dL [facility] CREATININE 0.8 0.7 - 1.2 mg/dL [facility] ALT 24 4 - 36 IU/L [facility] CALCIUM 9.7 8.4 - 10.5 mg/dL [facility] OSMOLALITY, CALCULATED 283 275 - 295 mOsm/Kg [facility] Blood specimen (specimen) 08/12/2007 4:19 AM CALENDERER 08/12/2007 4:22 AM CALENDERER us Amaury De La Rosa MD CHEMISTRY ORDERABLES Final Resul t Performing Organization Address [facility] de Phone Number [facility] [address] [place] [address] * LIPASE (08/12/2007 4:19 AM CALENDERER) Pathologist [facility] LIPASE 49 6 - 51 U/L [facility] Blood specimen (specimen) 08/12/2007 4:19 AM CALENDERER 08/12/2007 4:22 AM CALENDERER Amaury De La Rosa MD CHEMISTRY ORDERABLES Final Resul t Performing Organization Address [facility] Co de Phone Number [facility] [address] [place] [address] * URINALYSIS (08/12/2007 3:10 AM CALENDERER) CLARITY UA Clear Clear [facility] GLUCOSE UA NEGATIVE NEGATIVE [facility] SPECIFIC GRAVITY UA 1.010 <=1.005 [facility] PH UA 7.0 5.0 - 9.0 [facility] BILIRUBIN UA NEGATIVE NEGATIVE [facility] LEUKOCYTE ESTERASE UA NEGATIVE NEGATIVE [facility] MICRO EXAM No No [facility] KETONES UA NEGATIVE NEGATIVE [facility] COLOR UA Yellow Straw [facility] PROTEIN UA NEGATIVE NEGATIVE [facility] BLOOD UA NEGATIVE NEGATIVE [facility] NITRITE UA NEGATIVE NEGATIVE 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
--- OUTSIDE RECORDS SUMMARY | 2025-04-29 17:50 | XMS_ITS | Encounter Summary ---
Author Organization [facility] Address [address] [place] [address] Care Team Providers Care Dry Yard Worker Name Role Phone Dara Tavera AMANDEEP Primary Care Provider [phone] Encounter Details Date Type Department Care Team (Latest Contact Info) Description 04/20/2008 Outpatient Historical [facility] [address] [place] [address] AMBULANCE, [facility] Other Specified Cardiac Dysrhythmias; Unspecified Nonpsychotic Mental [...] on file Legal Sex Female 5:22 AM RACKING MACHINE OPERATOR Gender Identity Not on file [...] 10/30/13 Resolved 11/04/2013 11/04/2013 8 10:33 AM RACKING MACHINE OPERATOR R/O COVID-19 12/25/2019 12/25/2019 12/26/2019 2:46 PM CDT R/O COVID-05/09/2020 05/09/2020 05/09/2020 12:1 7 PM RACKING MACHINE OPERATOR documented as of this encounter Care Teams Dry Yard Worker Relationship Specialty Start Date End Date Dara Tavera FNP [address] [place] [phone] PCP - General NURSE PRACTITIONER 10/13/18 documented as of this encounter
--- OUTSIDE RECORDS SUMMARY | 2025-04-29 17:50 | XMS_ITS | Encounter Summary ---
Author Organization [facility] Address [address] [place] [address] Care Team Providers Care Paymaster Of Purses Name Role Phone Dara Tavera AMANDEEP Primary Care Provider Encounter Details Date Type Department Care Team (Latest Contact Info) Description 03/28/2008 Outpatient Historical [facility] [address] [place] [address] AMBULANCE, [facility] Unspecified Asthma; Unspecified Nonpsychotic Mental Disorder; Acquired [...] on file Legal Sex Female 5:22 AM REJECTOR Gender Identity Not on file Sexual Orientation [...] 10/30/13 Resolved 11/04/2013 11/04/2013 8 10:33 AM REJECTOR R/O COVID-19 12/25/2019 12/25/2019 12/26/2019 2:46 PM CDT R/O COVID-05/09/2020 05/09/2020 05/09/2020 12:1 7 PM REJECTOR documented as of this encounter Care Teams Paymaster Of Purses Relationship Specialty Start Date End Date Dara Tavera FNP [address] [place] [phone] PCP - General NURSE PRACTITIONER 10/13/18 documented as of this encounter
--- OUTSIDE RECORDS SUMMARY | 2025-04-29 17:50 | XMS_ITS | Encounter Summary ---
Author Organization [facility] Address [address] [place] [address] Care Team Providers Care Inside Sales Recruiter Name Role Phone Dara Tavera STOPPERER ASSEMBLER Primary Care Provider Encounter Details Date Type Department Care Team (Late st Contact Info) Description 07/31/2007 Emergency [facility] Emergency Department [address] [place] [address] Ed, Physician NO ADDRESS ON FILE Silvia Mayers MD [address] [place] [address] Social History Tobacco Use Types Packs/Day Years Used Date Smoking Tobacco: Never Assessed Comments Unknown Sex and Gender Information Value Date Recorded Sex Assigned at Not on file Legal Sex Female 5:22 AM AUTOMATIC EDGER Gender Identity Not on file Sexual Orientation Not on file documented as of this encounter Plan of Treatment Not on file documented as of this encounter Procedures Procedure Name Priority Date/Time Associated Diagnosis Comments CT ABDOMEN PELVIS W CONTRAST Routine 08/01/2007 2:49 AM AUTOMATIC EDGER CBC WITH DIFFERENTIAL Stat 07/31/2007 11:25 PM AUTOMATIC EDGER COMPREHENSIVE METABOLIC PANEL Stat 07/31/2007 11:25 PM AUTOMATIC EDGER URINALYSIS MICROSCOPY ONLY Stat 07/31/2007 11:20 PM AUTOMATIC EDGER URINALYSIS W/REFLEX MICROSCOPIC Stat 07/31/2007 11:20 PM AUTOMATIC EDGER documented in this encounter Results * CT ABDOMEN PELVIS W CONTRAST (08/01/2007 2:49 AM AUTOMATIC EDGER) Anatomical Region Laterality Modality Abdomen Other 08/01/2007 2:49 AM AUTOMATIC EDGER Narrative 08/01/2007 2:[address] of the abdomen and pelvis was [...] (ABNORMAL) CBC WITH DIFFERENTIAL (07/31/2007 11:25 PM AUTOMATIC EDGER) LYMPHOCYTE ABSOLUTE 2.8 1.2 - 4.0 K/ul [facility] MCV 87.2 84.0 - 103.0 Fl [facility] MPV 10.0 8.9 - 12.8 Fl [facility] BASOPHILS ABSOLUTE 0.1 0.0 - 0.2 K/ul [facility] BASOPHILS 0.6 0.0 - 1.0 % [facility] HEMOGLOBIN 13.2 12.0 - 16.0 g/dL [facility] RDW 14.8(H) 11.0 - 14.5 % [facility] MONOCYTE ABSOLUTE 0.7(H) 0.1 - 0.6 K/ul [facility] MONOCYTES 6.7 2.0 - 10.0 % [facility] WBC 9.7 4.5 - 11.0 K/ul [facility] MCH 29.1 27.0 - 34.0 pg [facility] NEUTROPHIL ABSOLUTE 6.1 2.0 - 8.0 K/ul [facility] NEUTROPHILS 62.8 42.2 - 75.2 % [facility] HEMATOCRIT 39.6 36.0 - 46.0 % [facility] EOSINOPHILS 1.4 0.0 - 7.0 % [facility] PLATELETS 272 140 - 440 K/ul [facility] EOSINOPHIL ABSOLUTE 0.1 0.0 - 0.7 K/ul [facility] RBC 4.54 4.20 - 5.40 Mil/ul [facility] LYMPHOCYTES 28.5 24.0 - 44.0 % [facility] MCHC 33.3 30.0 - 35.0 g/dL [facility] Blood specimen (specimen) 07/31/2007 11:25 PM AUTOMATIC EDGER 07/31/2007 11:32 PM AUTOMATIC EDGER us Silvia Mayers MD HEMATOLOGY ORDERABLES Final Res ult [facility] [address] [place] [address] * (ABNORMAL) COMPREHENSIVE METABOLIC PANEL (07/31/2007 11:25 PM AUTOMATIC EDGER) BUN 20(H) 7 - 17 mg/dL [facility] CO2 19(L) 22 - 32 mmol/l [facility] ANION GAP 11 9 - 20 mEq/L [facility] AST 14 8 - 33 U/L [facility] POTASSIUM 3.6 3.5 - 5.0 mEq/L [facility] GLOBULIN (CALC) 3.0 2.4 - 3.9 g/dL [facility] ALBUMIN 4.3 3.5 - 5.0 g/dL [facility] CREATININE 0.9 0.7 - 1.2 mg/dL [facility] CALCIUM 9.4 8.4 - 10.5 mg/dL [facility] ALT 21 4 - 36 IU/L [facility] OSMOLALITY, CALCULATED 291 275 - 295 mOsm/Kg [facility] GLUCOSE 113(H) 70 - 110 mg/dL [facility] CHLORIDE 114(H) 95 - 110 mEq/L [facility] ALKALINE PHOSPHATASE 154(H) 25 - 100 U/L [facility] ALBUMIN/GLOBULIN RATIO 1.4 1.0 - 2.3 [facility] SODIUM 140 136 - 145 mEq/L [facility] TOTAL PROTEIN 7.3 6.3 - 8.2 g/dL [facility] BILIRUBIN TOTAL 0.2(L) 0.3 - 1.2 mg/dL [facility] Blood specimen (specimen) 07/31/2007 11:25 PM AUTOMATIC EDGER 07/31/2007 11:32 PM AUTOMATIC EDGER Result [facility] Silvia Mayers MD CHEMISTRY ORDERABLES Final Resu lt Performing Organization Address [facility] de Phone Number [facility] [address] [place] [address] * (ABNORMAL) URINALYSIS (07/31/2007 11:20 PM AUTOMATIC EDGER) CLARITY UA Clear Clear [facility] SPECIFIC GRAVITY UA 1.031 <=1.005 [facility] GLUCOSE UA NEGATIVE NEGATIVE [facility] PH UA 6.0 5.0 - 9.0 [facility] BILIRUBIN UA NEGATIVE NEGATIVE [facility] LEUKOCYTE ESTERASE UA NEGATIVE NEGATIVE [facility] KETONES UA NEGATIVE NEGATIVE [facility] MICRO EXAM Yes(A) No [facility] COLOR UA Yellow Straw [facility] PROTEIN UA NEGATIVE NEGATIVE [facility] BLOOD UA NEGATIVE NEGATIVE [facility] NITRITE UA NEGATIVE NEGATIVE [facility] UROBILINOGEN UA 0.2 0.2 [facility] Urine, clean catch 07/31/2007 11:20 PM AUTOMATIC EDGER 07/31/2007 11:23 PM AUTOMATIC EDGER Silvia Mayers MD URINE ORDERABLES Final Result Performing Organization Address [facility] de Phone Number [facility] [address] [place] [address] * URINALYSIS MICROSCOPY ONLY (07/31/2007 11:20 PM AUTOMATIC EDGER) HYALINE CAST None Seen 0 - 2 [facility] WBC URINE None Seen 0 - 2 [facility] BACTERIA UA None Seen None Seen [facility] RBC UA None Seen 0 - 2 [facility] Urine specimen (specimen) 07/31/2007 11:20 PM AUTOMATIC EDGER 07/31/2007 11:23 PM AUTOMATIC EDGER Silvia Mayers MD URINE ORDERABLES Final Result [facility] [address] [place] [address] documented in this encounter Visit Diagnoses Not on filedocumented in this encounter Additional Health Concerns Infection Onset Date Last Indicated Resolved Time 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
--- OUTSIDE RECORDS SUMMARY | 2025-04-29 17:50 | XMS_ITS | Encounter Summary ---
Author Organization [facility] Address [address] [place] [address] Care Team Providers Care Solar Sales Advisor Name Role Phone Dara Tavera AMANDEEP Primary Care Provider [phone] Encounter Details Date Type Department Care Team (Latest Contact Info) Description 04/24/2008 Outpatient Historical [facility] [address] [place] [address] AMBULANCE, [facility] Unspecified Acute Reaction to Stress; [...] on file Legal Sex Female 5:22 AM HEADING UP MACHINE OPERATOR Gender Identity Not on file [...] 10/30/13 Resolved 11/04/2013 11/04/2013 8 10:33 AM HEADING UP MACHINE OPERATOR R/O COVID-19 12/25/2019 12/25/2019 12/26/2019 2:46 PM CDT R/O COVID-05/09/2020 05/09/2020 05/09/2020 12:1 7 PM HEADING UP MACHINE OPERATOR documented as of this encounter Care Teams Solar Sales Advisor Relationship Specialty Start Date End Date Dara Tavera FNP [address] [place] [phone] PCP - General NURSE PRACTITIONER 10/13/18 documented as of this encounter
--- OUTSIDE RECORDS SUMMARY | 2025-04-29 17:50 | XMS_ITS | Encounter Summary ---
Author Organization [facility] Address [address] [place] [address] Care Team Providers Care Director Cpg Name Role Phone Dara Tavera AMANDEEP Primary Care Provider Encounter Details Date Type Department Care Team (Latest Contact Info) Description 05/11/2008 Outpatient Historical [facility] [address] [place] [address] AMBULANCE, [facility] Esophageal Reflux; Personal History of Allergy to [...] file Legal Sex Female 5:22 AM REHAB TECH Gender Identity Not on file Sexual [...] Resolved 11/04/2013 11/04/2013 8 10:33 AM REHAB TECH R/O COVID-19 12/25/2019 12/25/2019 12/26/2019 2:46 PM CDT R/O COVID-19 05/09/2020 05/09/2020 05/09/2020 12:1 7 PM REHAB TECH documented as of this encounter Care Teams Director Cpg Relationship Specialty Start Date End Date Dara Tavera FNP [address] [place] [phone] PCP - General NURSE PRACTITIONER 10/13/18 documented as of this encounter
--- OUTSIDE RECORDS SUMMARY | 2025-04-29 17:50 | XMS_ITS | Encounter Summary ---
Author Organization [facility] Address [address] [place] [address] Care Team Providers Care Sales Executive Insurance Name Role Phone Dara Tavera AMANDEEP Primary Care Provider Encounter Details Date Type Department Care Team (Latest Contact Info) Description 02/28/2008 Outpatient Historical [facility] [address] [place] [address] AMBULANCE, [facility] Blood in Stool; Nausea Alone; Unspecified Asthma; [...] file Legal Sex Female 5:22 AM COOK BARBECUE Gender Identity Not on file Sexual Orientation [...] 10/30/13 Resolved 11/04/2013 11/04/201307/26/201 8 10:33 AM COOK BARBECUE R/O COVID-19 12/25/2019 12/25/2019 12/26/2019 2:46 PM CDT R/O COVID-19 05/09/2020 05/09/2020 05/09/2020 12:1 7 PM COOK BARBECUE documented as of this encounter Care Teams Sales Executive Insurance Relationship Specialty Start Date End Date Dara Tavera FNP [address] [place] [phone] PCP - General NURSE PRACTITIONER 10/13/18 documented as of this encounter
--- OUTSIDE RECORDS SUMMARY | 2025-04-29 17:50 | XMS_ITS | Encounter Summary ---
Author Organization [facility] Address [address] [place] [address] Care Team Providers Care Parcel Post Officer Name Role Phone Dara Tavera AMANDEEP Primary Care Provider Encounter Details Date Type Department Care Team (Latest Contact Info) Description 02/20/2008 Outpatient Historical [facility] [address] [place] [address] AMBULANCE, [facility] Hemorrhage of Rectum and Anus; Unspecified [...] on file Legal Sex Female 5:22 AM SHOE LASTER Gender Identity Not on file Sexual Orientation [...] 10/30/13 Resolved 11/04/2013 11/04/2013 8 10:33 AM SHOE LASTER R/O COVID-19 12/25/2019 12/25/2019 12/26/2019 2:46 PM CDT R/O COVID-19 05/09/2020 05/09/2020 05/09/2020 12:1 7 PM SHOE LASTER documented as of this encounter Care Teams Parcel Post Officer Relationship Specialty Start Date End Date Dara Tavera FNP [address] [place] [address] PCP - General NURSE PRACTITIONER 10/13/18 documented as of this encounter
--- OUTSIDE RECORDS SUMMARY | 2025-04-29 17:50 | XMS_ITS | Encounter Summary ---
Author Organization [facility] Address [address] [place] [address] Care Team Providers Care Hand Fur Cleaner Name Role Phone Dara Tavera Primary Care Provider [phone] Encounter Details Date Type Department Care Team (Late st Contact Info) Description 07/16/2007 Outpatient [facility] [address] [place] [address] Tej Will MD [address] [address] Social History Tobacco Use Types Packs/Day Years Used Date Smoking Tobacco: Never Assessed Comments Unknown Sex and Gender Information Value Date Recorded Sex Assigned at Not on file Legal Sex Female 5:22 AM ASSEMBLY ASSOCIATE Gender Identity Not on file Sexual Orientation Not on file documented as of this encounter Plan of Treatment Not on file documented as of this encounter Visit Diagnoses Not on filedocumented in this encounter Additional Health Concerns Infection Onset Date Last Indicated Resolved Time VRE Comment:Urine 10/30/13 Resolved 11/04/2013 11/04/2013 8 10:33 AM ASSEMBLY ASSOCIATE R/O COVID-19 12/25/2019 12/25/2019 12/26/2019 2:46 PM CDT R/O COVID-19 05/09/2020 05/09/2020 05/09/2020 12:1 7 PM ASSEMBLY ASSOCIATE documented as of this encounter Care Teams Hand Fur Cleaner Relationship Specialty Start Date End Date Dara Tavera FNP [address] [place] [phone] PCP - General NURSE PRACTITIONER 10/13/18 documented as of this encounter
--- OUTSIDE RECORDS SUMMARY | 2025-04-29 17:50 | XMS_ITS | Encounter Summary ---
Author Organization [facility] Address [address] [place] [address] Care Team Providers Care Forest Law And Policy Professor Name Role Phone Dara Tavera Primary Care Provider [phone] Encounter Details Date Type Department Care Team (Late st Contact Info) Description 08/11/2007 Emergency [facility] Emergency Department [address] [place] [address] Ed, Physician NO ADDRESS ON FILE Social History Tobacco Use Types Packs/Day Years Used Date Smoking Tobacco: Never Assessed Comments Unknown Sex and Gender Information Value Date Recorded Sex Assigned at Not on file Legal Sex Female 5:22 AM HOUSE PIPING INSPECTOR Gender Identity Not on file Sexual Orientation Not on file documented as of this encounter Plan of Treatment Not on file documented as of this encounter Visit Diagnoses Not on filedocumented in this encounter Additional Health Concerns Infection Onset Date Last Indicated Resolved Time VRE Comment:Urine 10/30/13 Resolved 11/04/2013 11/04/2013 8 10:33 AM HOUSE PIPING INSPECTOR R/O COVID-19 12/25/2019 12/25/2019 12/26/2019 2:46 PM CDT R/O COVID-19 05/09/2020 05/09/2020 05/09/2020 12:1 7 PM HOUSE PIPING INSPECTOR documented as of this encounter Care Teams Forest Law And Policy Professor Relationship Specialty Start Date End Date Dara Tavera FNP [address] [place] [phone] PCP - General NURSE PRACTITIONER 10/13/18 documented as of this encounter
--- OUTSIDE RECORDS SUMMARY | 2025-04-29 17:50 | XMS_ITS | Encounter Summary ---
Author Organization [facility] Address [address] [place] [address] Care Team Providers Care Game Programer Name Role Phone Dara Tavera Primary Care Provider Encounter Details Date Type Department Care Team (Late st Contact Info) Description 08/06/2007 Outpatient [facility] [address] [place] [address] Tej Will MD [address] [address] Social History Tobacco Use Types Packs/Day Years Used Date Smoking Tobacco: Never Assessed Comments Unknown Sex and Gender Information Value Date Recorded Sex Assigned at Not on file Legal Sex Female 5:22 AM MOLD MAKER HELPER Gender Identity Not on file Sexual Orientation Not on file documented as of this encounter Plan of Treatment Not on file documented as of this encounter Visit Diagnoses Not on filedocumented in this encounter Additional Health Concerns Infection Onset Date Last Indicated Resolved Time VRE Comment:Urine 10/30/13 Resolved 11/04/2013 11/04/2013 8 10:33 AM MOLD MAKER HELPER R/O COVID-19 12/25/2019 12/25/2019 12/26/2019 2:46 PM CDT R/O COVID-19 05/09/2020 05/09/2020 05/09/2020 12:1 7 PM MOLD MAKER HELPER documented as of this encounter Care Teams Game Programer Relationship Specialty Start Date End Date Dara Tavera FNP [address] [place] [phone] PCP - General NURSE PRACTITIONER 10/13/18 documented as of this encounter
--- OUTSIDE RECORDS SUMMARY | 2025-04-29 17:50 | XMS_ITS | Encounter Summary ---
Author Organization [facility] Address [address] [place] [address] Care Team Providers Care Nut Cracker Name Role Phone Dara Tavera AMANDEEP Primary Care Provider [phone] Encounter Details Date Type Department Care Team (Late st Contact Info) Description 07/20/2007 Emergency [facility] Emergency Department [address] [place] [address] Ed, Physician NO ADDRESS ON FILE Jorge Danielson III G, DO NO ADDRESS ON FILE Social History Tobacco Use Types Packs/Day Years Used Date Smoking Tobacco: Never Assessed Comments Unknown Sex and Gender Information Value Date Recorded Sex Assigned at Not on file Legal Sex Female 5:22 AM REVENUE SPECIALIST Gender Identity Not on file Sexual Orientation Not on file documented as of this encounter Plan of Treatment Not on file documented as of this encounter Procedures Procedure Name Priority Date/Time Associated Diagnosis Comments URINALYSIS W/REFLEX MICROSCOPIC Routine 07/21/2007 1:27 AM REVENUE SPECIALIST XR ABDOMEN 1 VW Stat 07/21/2007 1:21 AM REVENUE SPECIALIST documented in this encounter Results * URINALYSIS (07/21/2007 1:27 AM REVENUE SPECIALIST) COLOR UA Yellow Straw INTERFACE SYSTEM [...] No No INTERFACE SYSTEM 07/21/2007 1:27 AM REVENUE SPECIALIST Jorge Colinegers III, DO URINE ORDERABLES Edited INTERFACE SYSTEM Refer to clinic/hospital department * XR ABDOMEN 1 VW (07/21/2007 1:21 AM REVENUE SPECIALIST) Anatomical Region Laterality Modality Abdomen Other 07/21/2007 1:21 AM REVENUE SPECIALIST Narrative 07/21/2007 1:21 AM REVENUE SPECIALIST Surgical clips are present in the gallbladder [...] 10/30/13 Resolved 11/04/2013 11/04/2013 8 10:33 AM REVENUE SPECIALIST R/O COVID-19 12/25/2019 12/25/2019 12/26/2019 2:46 PM CDT R/O COVID-19 05/09/2020 05/09/2020 05/09/2020 12:1 7 PM REVENUE SPECIALIST documented as of this encounter Care Teams Nut Cracker Relationship Specialty Start Date End Date Dara Tavera FNP [address] [place] [address] PCP - General NURSE PRACTITIONER 10/13/18 documented as of this encounter
--- OUTSIDE RECORDS SUMMARY | 2025-04-29 17:50 | XMS_ITS | Encounter Summary ---
Author Organization [facility] Address [address] [place] [address] Care Team Providers Care Windscreen Fitter Name Role Phone Dara Tavera Primary Care Provider Encounter Details Date Type Department Care Team (Late st Contact Info) Description 03/05/2008 Outpatient Historical [facility] [address] [place] [address] AMBULANCE, [facility] Social History Tobacco Use Types Packs/Day Years Used Date Smoking Tobacco: Never Assessed Comments Unknown Sex and Gender Information Value Date Recorded Sex Assigned at Not on file Legal Sex Female 5:22 AM OPERATIONS SUPERVISOR 2ND SHIFT Gender Identity Not on file Sexual Orientation Not on file documented as of this encounter Plan of Treatment Not on file documented as of this encounter Visit Diagnoses Not on filedocumented in this encounter Additional Health Concerns Infection Onset Date Last Indicated Resolved Time VRE Comment:Urine 10/30/13 Resolved 11/04/2013 11/04/2013 8 10:33 AM OPERATIONS SUPERVISOR 2ND SHIFT R/O COVID-19 12/25/2019 12/25/2019 12/26/2019 2:46 PM CDT R/O COVID-19 05/09/2020 05/09/2020 05/09/2020 12:1 7 PM OPERATIONS SUPERVISOR 2ND SHIFT documented as of this encounter Care Teams Windscreen Fitter Relationship Specialty Start Date End Date Dara Tavera FNP [address] [place] [phone] PCP - General NURSE PRACTITIONER 10/13/18 documented as of this encounter
--- OUTSIDE RECORDS SUMMARY | 2025-04-29 17:50 | XMS_ITS | Encounter Summary ---
Author Organization [facility] Address [address] [place] [address] Care Team Providers Care Agricultural Engineering Technician Name Role Phone Dara Tavera AMANDEEP Primary Care Provider Encounter Details Date Type Department Care Team (Late st Contact Info) Description 07/22/2007 Emergency [facility] Emergency Department [address] [place] [address] Ed, Physician NO ADDRESS ON FILE Amaury De La Rosa MD NO ADDRESS ON FILE Social History Tobacco Use Types Packs/Day Years Used Date Smoking Tobacco: Never Assessed Comments Unknown Sex and Gender Information Value Date Recorded Sex Assigned at Not on file Legal Sex Female 5:22 AM PROPERTY ASSISTANT Gender Identity Not on file Sexual Orientation Not on file documented as of this encounter Plan of Treatment Not on file documented as of this encounter Procedures Procedure Name Priority Date/Time Associated Diagnosis Comments URINALYSIS MICROSCOPY ONLY Routine 07/22/2007 12:38 PM PROPERTY ASSISTANT URINALYSIS W/REFLEX MICROSCOPIC Routine 07/22/2007 12:38 PM PROPERTY ASSISTANT URINE CULTURE Stat 07/22/2007 12:38 PM PROPERTY ASSISTANT documented in this encounter Results * (ABNORMAL) URINALYSIS MICROSCOPY ONLY (07/22/2007 12:38 PM PROPERTY ASSISTANT) WBC URINE None Seen 0 - 2 INTERFACE SYSTEM RBC UA None Seen 0 - 2 INTERFACE SYSTEM HYALINE CAST None Seen 0 - 2 INTERFA CE SYSTEM BACTERIA UA Few(A) None Seen INTERFAC E SYSTEM 07/22/2007 12:3 8 PM PROPERTY ASSISTANT Amaury De La Rosa MD URINE ORDERABLES Edited Performing Organization Address [facility] Phone Number INTERFACE SYSTEM Refer to clinic/hospital department * (ABNORMAL) URINALYSIS (07/22/2007 12:38 PM PROPERTY ASSISTANT) COLOR UA Dark Yellow Straw INTERFAC E [...] No INTERFACE SYSTEM 07/22/2007 12:3 8 PM PROPERTY ASSISTANT Amaury De La Rosa MD URINE ORDERABLES Edited Performing Organization Address [facility] Phone Number INTERFACE SYSTEM Refer to clinic/hospital department * URINE CULTURE (07/22/2007 12:38 PM PROPERTY ASSISTANT) FINAL REPORT No growth INTERFA CE SYSTEM 07/22/2007 12:3 8 PM PROPERTY ASSISTANT 07/22/2007 3:01 PM PROPERTY ASSISTANT Result [facility] Amaury De La Rosa MD MICROBIOLOGY - GENERAL ORDERABLE S Final Result Performing Organization Address [facility] Phone Number INTERFACE SYSTEM Refer to clinic/hospital department documented in this encounter Visit Diagnoses Not on filedocumented in this encounter Additional Health Concerns Infection Onset Date Last Indicated Resolved Time VRE Comment:Urine 10/30/13 Resolved 11/04/2013 11/04/2013 8 10:33 AM PROPERTY ASSISTANT R/O COVID-19 12/25/2019 12/25/2019 12/26/2019 2:46 PM CDT R/O COVID-19 05/09/2020 05/09/2020 05/09/2020 12:1 7 PM PROPERTY ASSISTANT documented as of this encounter Care Teams Agricultural Engineering Technician Relationship Specialty Start Date End Date Dara Tavera FNP [address] [place] [phone] PCP - General NURSE PRACTITIONER 10/13/18 documented as of this encounter
--- OUTSIDE RECORDS SUMMARY | 2025-04-29 17:50 | XMS_ITS | Encounter Summary ---
Author Organization [facility] Address [address] [place] [address] Care Team Providers Care Advertising Specialist Name Role Phone Dara Tavera AMANDEEP Primary Care Provider Encounter Details Date Type Department Care Team (Latest Contact Info) Description 07/30/1997 Outpatient Historical [facility] Roney Arora MD [address] [place] [address] Bipolar I disorder, most recent episode (or current) unspecified (CMS/HCC) (Primary Dx); Unspecified osteomyelitis, other specified site; Nausea with vomiting Social History Tobacco Use Types Packs/Day Years Used Date Smoking Tobacco: Never Assessed Comments Unknown Sex and Gender Information Value Date Recorded Sex Assigned at Not on file Legal Sex Female 5:22 AM MORTGAGE PROCESSING CLERK Gender Identity Not on file Sexual [...] 10/30/13 Resolved 11/04/2013 11/04/2013 8 10:33 AM MORTGAGE PROCESSING CLERK R/O COVID-19 12/25/2019 12/25/2019 12/26/2019 2:46 PM CDT R/O COVID-19 05/09/2020 05/09/2020 05/09/2020 12:1 7 PM MORTGAGE PROCESSING CLERK documented as of this encounter Care Teams Advertising Specialist Relationship Specialty Start Date End Date Dara Tavera FNP [address] [place] [address] PCP - General NURSE PRACTITIONER 10/13/18 documented as of this encounter
--- OUTSIDE RECORDS SUMMARY | 2025-04-29 17:50 | XMS_ITS | Encounter Summary ---
Author Organization [facility] Address [address] [place] [address] Care Team Providers Care Creping Machine Operator Name Role Phone Dara Tavera Primary Care Provider [phone] Encounter Details Date Type Department Care Team (Late st Contact Info) Description 08/13/2007 Outpatient [facility] [address] [place] [address] Tej Will MD [address] [address] Social History Tobacco Use Types [...] 10/30/13 Resolved 11/04/2013 11/04/2013 8 10:33 AM SALVAGER HELPER R/O COVID-19 12/25/2019 12/25/2019 12/26/2019 2:46 PM CDT R/O COVID-19 05/09/2020 05/09/2020 05/09/2020 12:1 7 PM SALVAGER HELPER documented as of this encounter Care Teams Creping Machine Operator Relationship Specialty Start Date End Date Dara Tavera FNP [address] [place] [phone] PCP - General NURSE PRACTITIONER 10/13/18 documented as of this encounter
--- OUTSIDE RECORDS SUMMARY | 2025-04-29 17:50 | XMS_ITS | Encounter Summary ---
Author Organization [facility] Address [address] [place] [address] Care Team Providers Care Director Advertising Name Role Phone Dara Tavera Primary Care Provider Encounter Details Date Type Department Care Team (Late st Contact Info) Description 07/20/2007 Outpatient Historical [facility] [address] [place] [address] [facility] [address] [place] [address] Prasad Carpenter MD NO ADDRESS ON FILE Social History Tobacco Use Types Packs/Day Years Used Date Smoking Tobacco: Never Assessed Comments Unknown Sex and Gender Information Value Date Recorded Sex Assigned at Not on file Legal Sex Female 5:22 AM DIRECTOR OF CASINO Gender Identity Not on file Sexual Orientation Not on file documented as of this encounter Plan of Treatment Not on file documented as of this encounter Visit Diagnoses Not on filedocumented in this encounter Additional Health Concerns Infection Onset Date Last Indicated Resolved Time VRE Comment:Urine 10/30/13 Resolved 11/04/2013 11/04/2013 8 10:33 AM DIRECTOR OF CASINO R/O COVID-19 12/25/2019 12/25/2019 12/26/2019 2:46 PM CDT R/O COVID-19 05/09/2020 05/09/2020 05/09/2020 12:1 7 PM DIRECTOR OF CASINO documented as of this encounter Care Teams Director Advertising Relationship Specialty Start Date End Date Dara Tavera FNP [address] [place] [phone] PCP - General NURSE PRACTITIONER 10/13/18 documented as of this encounter
--- OUTSIDE RECORDS SUMMARY | 2025-04-29 17:50 | XMS_ITS | Encounter Summary ---
Author Organization [facility] Address [address] [place] [address] Care Team Providers Care Project Designer Name Role Phone Dara Tavera Primary Care Provider Encounter Details Date Type Department Care Team (Late st Contact Info) Description 07/12/2007 Emergency [facility] Emergency Department [address] [place] [address] Ed, Physician NO ADDRESS ON FILE Oniel Sainz MD [address] [place] [address] Social History Tobacco Use Types Packs/Day Years Used Date Smoking Tobacco: Never Assessed Comments Unknown Sex and Gender Information Value Date Recorded Sex Assigned at Not on file Legal Sex Female 5:22 AM COAT ROOM ATTENDANT Gender Identity Not on file Sexual Orientation Not on file documented as of this encounter Plan of Treatment Not on file documented as of this encounter Visit Diagnoses Not on filedocumented in this encounter Additional Health Concerns Infection Onset Date Last Indicated Resolved Time VRE Comment:Urine 10/30/13 Resolved 11/04/2013 11/04/2013 8 10:33 AM COAT ROOM ATTENDANT R/O COVID-19 12/25/2019 12/25/2019 12/26/2019 2:46 PM CDT R/O COVID-19 05/09/2020 05/09/2020 05/09/2020 12:1 7 PM COAT ROOM ATTENDANT documented as of this encounter Care Teams Project Designer Relationship Specialty Start Date End Date Dara Tavera FNP [address] [place] [phone] PCP - General NURSE PRACTITIONER 10/13/18 documented as of this encounter
--- OUTSIDE RECORDS SUMMARY | 2025-04-29 17:50 | XMS_ITS | Encounter Summary ---
Author Organization [facility] Address [address] [place] [address] Care Team Providers Care Mold Yard Crane Operator Name Role Phone Dara Tavera AMANEDEP Primary Care Provider Encounter Details Date Type Department Care Team (Late st Contact Info) Description 04/29/[address] [facility] Emergency Department [address] [place] [address] Temo Nagel MD [address] [place] [address] Abdominal Pain, Other Specified Site (Primary Dx) Social History Tobacco Use Types Packs/Day Years Used Date Smoking Tobacco: Never Assessed Comments Unknown Sex and Gender Information Value Date Recorded Sex Assigned at Not on file Legal Sex Female 5:22 AM DUMP TRUCK DRIVER OFF HIGHWAY Gender Identity Not on file Sexual Orientation Not on file documented as of this encounter Plan of Treatment Not on file documented as of this encounter Visit Diagnoses Diagnosis Abdominal pain, other specified site- Primary documented in this encounter Additional Health Concerns Infection Onset Date Last Indicated Resolved Time VRE Comment:Urine 10/30/13 Resolved 11/04/2013 11/04/2013 8 10:33 AM DUMP TRUCK DRIVER OFF HIGHWAY R/O COVID-19 12/25/2019 12/25/2019 12/26/2019 2:46 PM CDT R/O COVID-19 05/09/2020 05/09/2020 05/09/2020 12:1 7 PM DUMP TRUCK DRIVER OFF HIG[address] documented as of this encounter Care Teams Mold Yard Crane Operator Relationship Specialty Start Date End Date Dara Tavera FNP [address] [place] [phone] PCP - General NURSE PRACTITIONER 10/13/18 documented as of this encounter
--- NOTE | 2025-04-29 17:51 | XRR_ITS ---
PROCEDURE INFORMATION: Exam: XR Right Shoulder Exam date and time: 04/29/2025 6:55 PM Age: 59 years old Clinical indication: Injury or trauma; Fall; Blunt trauma (contusions or hematomas); Shoulder; Right; Additional info: Shoulder pain TECHNIQUE: Imaging protocol: Radiologic exam of the right shoulder. Views: 2 or more views. COMPARISON: CT lung screening [id number] 04/01/2025 8:01 AM FINDINGS: Bones/joints: No acute fracture or dislocation. AC joint is congruent. Moderate degenerative change. Soft tissues: Soft tissues grossly unremarkable. XR/XR shoulder RT min 2V* [id number] IMPRESSION: No acute findings.
--- OUTSIDE RECORDS SUMMARY | 2025-04-29 17:51 | XMS_ITS | Encounter Summary ---
Author Organization [facility] Address [address] [place] [address] Care Team Providers Care Atmospheric Technician Name Role Phone Dara Tavera AMANDEEP Primary Care Provider Encounter Details Date Type Department Care Team (Late st Contact Info) Description 06/03/[address] [facility] Emergency Department [address] [place] [address] Ed, Physician NO ADDRESS ON FILE Oniel Sainz MD [address] [place] [address] Social History Tobacco Use Types Packs/Day Years Used Date Smoking Tobacco: Never Assessed Comments Unknown Sex and Gender Information Value Date Recorded Sex Assigned at Not on file Legal Sex Female 5:22 AM MUSICAL STRING MAKER Gender Identity Not on file Sexual Orientation Not on file documented as of this encounter Plan of Treatment Not on file documented as of this encounter Procedures Procedure Name Priority Date/Time Associated Diagnosis Comments CBC WITH DIFFERENTIAL Routine 06/03/2007 9:39 PM MUSICAL STRING MAKER COMPREHENSIVE METABOLIC PANEL Routine 06/03/2007 9:39 PM MUSICAL STRING MAKER URINALYSIS W/REFLEX MICROSCOPIC Routine 06/03/2007 9:26 PM MUSICAL STRING MAKER documented in this encounter Results * (ABNORMAL) COMPREHENSIVE METABOLIC PANEL (06/03/2007 9:39 PM MUSICAL STRING MAKER) [facility] GLUCOSE 97 70 - 110 mg/dL INTERFACE [...] 295 mOsm/Kg INTERFACE SYSTEM 06/03/2007 9:39 PM MUSICAL STRING MAKER us Oniel Sainz MD CHEMISTRY ORDERABLES Edited INTERFACE SYSTEM Refer to clinic/hospital department * (ABNORMAL) CBC WITH DIFFERENTIAL (06/03/2007 9:39 PM MUSICAL STRING MAKER) Pathologist [facility] WBC 9.5 4.5 - 11.0 K/ul INTERFACE [...] 0.2 K/ul INTERFACE SYSTEM 06/03/2007 9:39 PM MUSICAL STRING MAKER Oniel Sainz MD HEMATOLOGY ORDERABLES Edited Performing Organization Address [facility] de Phone Number INTERFACE SYSTEM Refer to clinic/hospital department * URINALYSIS (06/03/2007 9:26 PM MUSICAL STRING MAKER) COLOR UA Yellow Straw INTERFACE SYSTEM [...] No No INTERFACE SYSTEM 06/03/2007 9:26 PM MUSICAL STRING MAKER Oniel Sainz MD URINE ORDERABLES Edited Performing Organization Address [facility] Co de Phone Number INTERFACE SYSTEM Refer to clinic/hospital department documented in this encounter Visit Diagnoses Not on filedocumented in this encounter Additional Health Concerns Infection Onset Date Last Indicated Resolved Time VRE Comment:Urine 10/30/13 Resolved 11/04/2013 11/04/2013 8 10:33 AM MUSICAL STRING MAKER R/O COVID-19 12/25/2019 12/25/2019 12/26/2019 2:46 PM CDT R/O COVID-19 05/09/2020 05/09/2020 05/09/2020 12:1 7 PM MUSICAL STRING MAKER documented as of this encounter Care Teams Atmospheric Technician Relationship Specialty Start Date End Date Dara Tavera FNP [address] [place] [phone] PCP - General NURSE PRACTITIONER 10/13/18 documented as of this encounter
--- OUTSIDE RECORDS SUMMARY | 2025-04-29 17:51 | XMS_ITS | Encounter Summary ---
Author Organization [facility] Address [address] [place] [address] Care Team Providers Care Internship Name Role Phone Dara Tavera Primary Care Provider Encounter Details Date Type Department Care Team (Latest Contact Info) Description 12/16/2005 Outpatient Historical [facility] [address] [place] [address] AMBULANCE, [facility] Unspecified Nonpsychotic Mental Disorder (Primary Dx) Social History Tobacco Use Types Packs/Day Years Used Date Smoking Tobacco: Never Assessed Comments Unknown Sex and Gender Information Value Date Recorded Sex Assigned at Not on file Legal Sex Female 5:22 AM PAINTER HELPER SIGN Gender Identity Not on file Sexual Orientation Not on file documented as of this encounter Plan of Treatment Not on file documented as of this encounter Visit Diagnoses Diagnosis Unspecified nonpsychotic mental disorder- Primary documented in this encounter Additional Health Concerns Infection Onset Date Last Indicated Resolved Time VRE Comment:Urine 10/30/13 Resolved 11/04/2013 11/04/2013 8 10:33 AM PAINTER HELPER SIGN R/O COVID-19 12/25/2019 12/25/2019 12/26/2019 2:46 PM CDT R/O COVID-19 05/09/2020 05/09/2020 05/09/2020 12:1 7 PM PAINTER HELPER SIGN documented as of this encounter Care Teams Internship Relationship Specialty Start Date End Date Dara Tavera FNP [address] [place] [phone] PCP - General NURSE PRACTITIONER 10/13/18 documented as of this encounter
--- OUTSIDE RECORDS SUMMARY | 2025-04-29 17:51 | XMS_ITS | Clinical Summary ---
Author Organization [facility] Address [address] [place] [address] Care Team Providers Care Set Painter Name Role Phone Dara Tavera WHEELCHAIR VAN OPERATOR FIRST RESPONDER Primary Care Provider Allergies Active Allergy Reactions Criticality Noted Date Comments Adhesive Rash Low 02/12/2009 Codeine Nausea and Vomiting Low 02/12/2009 Duloxetine Other (See Comments) 02/24/2015 Fentanyl Hives High 11/07/2019 Fluoxetine Unknown 10/20/2018 Gabapentin Unknown,Hallucination Low 02/12/2009 Influenza Virus Vaccine Qv 7744-4410 (36 Mos+) Other (See Comments) 06/19/2014 pneumonia Ketorolac Tromethamine Other (See Comments) Low Adverse drug reaction [place] Unknown 02/12/2009 Other reaction(s): shakey Penicillins Rash [...] 9 Active fluticasone propionate (FLONASE) 50 mcg/spray [place], Suspension nasal inhaler Administer 2 Sprays in [...] 07/07/2009 0 10/26/2012 Personal history of MRSA (nv thicillin resistant Staphylococcus aureus) 06/27/2009 018 Overview [...] asked 05/05/2019 How often do you attend yazidism or jewish serv ices? Not asked 05/05/2019 Do you belong to any clubs o r organizations such as yazidism groups, unions, fraternal or athletic groups, or [...] on file Legal Sex Female 5:22 AM PARK SUPERINTENDENT Gender Identity Not on file Sexual Orientation [...] Advance Directives For more information, please contact: [phone] Documents on File Type Date Recorded Patient Wardrobe Consultant Expl anation Advance Directive Living Will 03/11/2015 [...] 6:26 AM 06/22/2018 8:41 PM Care Teams Set Painter Relationship Specialty Start Date End Date Dara Tavera FNP [address] [place] [phone] PCP - General NURSE PRACTITIONER 10/13/18
--- OUTSIDE RECORDS SUMMARY | 2025-04-29 17:51 | XMS_ITS | Encounter Summary ---
Author Organization [facility] Address [address] [place] [address] Care Team Providers Care Form Presser Name Role Phone Dara Tavera AMANDEEP Primary Care Provider Encounter Details Date Type Department Care Team (Latest Contact Info) Description 07/10/2020 Ancillary Orders [facility] Centralized Scheduling [address] [place] [address] Don Loja MD [address] [place] [address] Abdominal pain, unspecified abdominal location; [...] asked 05/05/2019 How often do you attend moravian or islam serv ices? Not asked 05/05/2019 Do you belong to any clubs o r organizations such as moravian groups, unions, fraternal or athletic groups, or [...] on file Legal Sex Female 5:22 AM GUMMING MACHINE OPERATOR Gender Identity Not on file [...] COVID-19? No / Unsure 07/08/2020 6:45 PM GUMMING MACHINE OPERATOR documented as of this encounter Plan of Treatment Not on file documented as of this encounter Visit Diagnoses Diagnosis Abdominal pain, unspecified abdominal location Change in bowel habit documented in this encounter Care Teams Form Presser Relationship Specialty Start Date End Date Dara Tavera FNP [address] [place] [phone] PCP - General NURSE PRACTITIONER 10/13/18 documented as of this encounter
--- OUTSIDE RECORDS SUMMARY | 2025-04-29 17:51 | XMS_ITS | Encounter Summary ---
Author Organization [facility] Address [address] [place] [address] Care Team Providers Care Wheel Fitter Name Role Phone Dara Tavera Primary Care Provider Encounter Details Date Type Department Care Team (Latest Contact Info) Description 02/20/2007 Outpatient Historical [facility] Ambulance [address] [place] [address] AMBULANCE, [facility] Unspecified Nonpsychotic Mental Disorder (Primary Dx) Social History Tobacco Use Types Packs/Day Years Used Date Smoking Tobacco: Never Assessed Comments Unknown Sex and Gender Information Value Date Recorded Sex Assigned at Not on file Legal Sex Female 5:22 AM COMPUTER FORENSIC EXAMINER Gender Identity Not on file Sexual Orientation Not on file documented as of this encounter Plan of Treatment Not on file documented as of this encounter Visit Diagnoses Diagnosis Unspecified nonpsychotic mental disorder- Primary documented in this encounter Additional Health Concerns Infection Onset Date Last Indicated Resolved Time VRE Comment:Urine 10/30/13 Resolved 11/04/2013 11/04/2013 8 10:33 AM COMPUTER FORENSIC EXAMINER R/O COVID-19 12/25/2019 12/25/2019 12/26/2019 2:46 PM CDT R/O COVID-19 05/09/2020 05/09/2020 05/09/2020 12:1 7 PM COMPUTER FORENSIC EXAMINER documented as of this encounter Care Teams Wheel Fitter Relationship Specialty Start Date End Date Dara Tavera FNP [address] [place] [phone] PCP - General NURSE PRACTITIONER 10/13/18 documented as of this encounter
--- OUTSIDE RECORDS SUMMARY | 2025-04-29 17:51 | XMS_ITS | Encounter Summary ---
Author Organization [facility] Address [address] [place] [address] Care Team Providers Care Customer Assistant Name Role Phone Dara Tavera AMANDEEP Primary Care Provider Encounter Details Date Type Department Care Team (Late st Contact Info) Description 04/13/2007 Emergency [facility] Emergency Department [address] [place] [address] Flex Ricks MD NO ADDRESS ON FILE Other and Unspecified Noninfectious Gastroenteritis and Colitis (Primary Dx) Social History Tobacco Use Types Packs/Day Years Used Date Smoking Tobacco: Never Assessed Comments Unknown Sex and Gender Information Value Date Recorded Sex Assigned at Not on file Legal Sex Female 5:22 AM BALANCER Gender Identity Not on file Sexual Orientation [...] 10/30/13 Resolved 11/04/2013 11/04/2013 8 10:33 AM BALANCER R/O COVID-19 12/25/2019 12/25/2019 12/26/2019 2:46 PM CDT R/O COVID-19 05/09/2020 05/09/2020 05/09/2020 12:1 7 PM BALANCER documented as of this encounter Care Teams Customer Assistant Relationship Specialty Start Date End Date Dara Tavera FNP [address] [place] [phone] PCP - General NURSE PRACTITIONER 10/13/18 documented as of this encounter
--- OUTSIDE RECORDS SUMMARY | 2025-04-29 17:51 | XMS_ITS | Encounter Summary ---
Author Organization [facility] Address [address] [place] [address] Care Team Providers Care Poultry Husbandman Name Role Phone Dara Tavera Primary Care Provider Encounter Details Date Type Department Care Team (Latest Contact Info) Description 09/19/2005 Outpatient Historical [facility] Ambulance [address] [place] [address] AMBULANCE, [facility] Unspecified Hemorrhage (Primary Dx) Social History Tobacco Use Types Packs/Day Years Used Date Smoking Tobacco: Never Assessed Comments Unknown Sex and Gender Information Value Date Recorded Sex Assigned at Not on file Legal Sex Female 5:22 AM TUB PULLER Gender Identity Not on file Sexual Orientation Not on file documented as of this encounter Plan of Treatment Not on file documented as of this encounter Visit Diagnoses Diagnosis Hemorrhage, unspecified- Primary documented in this encounter Additional Health Concerns Infection Onset Date Last Indicated Resolved Time VRE Comment:Urine 10/30/13 Resolved 11/04/2013 11/04/2013 8 10:33 AM TUB PULLER R/O COVID-19 12/25/2019 12/25/2019 12/26/2019 2:46 PM CDT R/O COVID-19 05/09/2020 05/09/2020 05/09/2020 12:1 7 PM TUB PULLER documented as of this encounter Care Teams Poultry Husbandman Relationship Specialty Start Date End Date Dara Tavear FNP [address] [place] [phone] PCP - General NURSE PRACTITIONER 10/13/18 documented as of this encounter
--- OUTSIDE RECORDS SUMMARY | 2025-04-29 17:51 | XMS_ITS | Encounter Summary ---
Author Organization [facility] Address [address] [place] [address] Care Team Providers Care Head Animal Trainer Name Role Phone Dara Tavera AMANDEEP Primary Care Provider Encounter Details Date Type Department Care Team (Late st Contact Info) Description 04/27/2007 Emergency [facility] Emergency Department [address] [place] [address] Sammi Justice MD [address] [place] [address] Abdominal Pain, Other Specified Site (Primary Dx) Social History Tobacco Use Types Packs/Day Years Used Date Smoking Tobacco: Never Assessed Comments Unknown Sex and Gender Information Value Date Recorded Sex Assigned at Not on file Legal Sex Female 5:22 AM WILDLIFE BIOSTATION RESEARCH ECOLOGIST Gender Identity Not on file Sexual Orientation Not on file documented as of this encounter Plan of Treatment Not on file documented as of this encounter Procedures Procedure Name Priority Date/Time Associated Diagnosis Comments URINALYSIS W/REFLEX MICROSCOPIC Routine 04/27/2007 6:20 PM WILDLIFE BIOSTATION RESEARCH ECOLOGIST CBC WITH DIFFERENTIAL Routine 04/27/2007 6:09 PM WILDLIFE BIOSTATION RESEARCH ECOLOGIST COMPREHENSIVE METABOLIC PANEL Routine 04/27/2007 6:09 PM WILDLIFE BIOSTATION RESEARCH ECOLOGIST documented in this encounter Results * URINALYSIS (04/27/2007 6:20 PM WILDLIFE BIOSTATION RESEARCH ECOLOGIST) COLOR UA Yellow Straw INTERFACE SYSTEM CLARITY [...] No No INTERFACE SYSTEM 04/27/2007 6:20 PM WILDLIFE BIOSTATION RESEARCH ECOLOGIST Sammi Justice MD URINE ORDERABLES Edited Performing Organization Address City/[facility] Co de Phone Number INTERFACE SYSTEM Refer to clinic/hospital department * (ABNORMAL) COMPREHENSIVE METABOLIC PANEL (04/27/2007 6:09 PM WILDLIFE BIOSTATION RESEARCH ECOLOGIST) GLUCOSE 108 70 - 110 mg/dL INTERFACE [...] 295 mOsm/Kg INTERFACE SYSTEM 04/27/2007 6:09 PM WILDLIFE BIOSTATION RESEARCH ECOLOGIST Sammi Justice MD CHEMISTRY ORDERABLES Edited INTERFACE SYSTEM Refer to clinic/hospital department * (ABNORMAL) CBC WITH DIFFERENTIAL (04/27/2007 6:09 PM WILDLIFE BIOSTATION RESEARCH ECOLOGIST) WBC 11.0 4.5 - 11.0 K/ul INTERFACE [...] 0.2 K/ul INTERFACE SYSTEM 04/27/2007 6:09 PM WILDLIFE BIOSTATION RESEARCH ECOLOGIST us Sammi Justice MD HEMATOLOGY ORDERABLES Edite d INTERFACE SYSTEM Refer to clinic/hospital department documented in this encounter Visit Diagnoses Diagnosis Abdominal pain, other specified site- Primary documented in this encounter Additional Health Concerns Infection Onset Date Last Indicated Resolved Time VRE Comment:Urine 10/30/13 Resolved 11/04/2013 11/04/2013 8 10:33 AM WILDLIFE BIOSTATION RESEARCH ECOLOGIST R/O COVID-19 12/25/2019 12/25/2019 12/26/2019 2:46 PM CDT R/O COVID-19 05/09/2020 05/09/2020 05/09/2020 12:1 7 PM WILDLIFE BIOSTATION RESEARCH ECOLOGIST documented as of this encounter Care Teams Head Animal Trainer Relationship Specialty Start Date End Date Dara Tavera FNP [address] [place] [address] PCP - General NURSE PRACTITIONER 10/13/18 documented as of this encounter
--- OUTSIDE RECORDS SUMMARY | 2025-04-29 17:51 | XMS_ITS | Encounter Summary ---
Author Organization [facility] Address [address] [place] [address] Care Team Providers Care Giant Tire Repairer Name Role Phone Dara Tavera TELEGRAPHIC TYPEWRITER REPAIRER Primary Care Provider [phone] Encounter Details Date Type Department Care Team (Late st Contact Info) Description 02/13/2007 Outpatient Historical [facility] Alisa Ross MD [address] [place] [address] Social History Tobacco Use Types Packs/Day Years Used Date Smoking Tobacco: Never Assessed Comments Unknown Sex and Gender Information Value Date Recorded Sex Assigned at Not on file Legal Sex Female 5:22 AM AUTO PARTS DELIVERY DRIVER Gender Identity Not on file Sexual [...] Resolved 11/04/2013 11/04/2013 8 10:33 AM AUTO PARTS DELIVERY DRIVER R/O COVID-19 12/25/2019 12/25/2019 12/26/2019 2:46 PM CDT R/O COVID-19 05/09/2020 05/09/2020 05/09/2020 12:1 7 PM AUTO PARTS DELIVERY DRIVER documented as of this encounter Care Teams Giant Tire Repairer Relationship Specialty Start Date End Date Dara Tavera FNP [address] [place] [phone] PCP - General NURSE PRACTITIONER 10/13/18 documented as of this encounter
--- OUTSIDE RECORDS SUMMARY | 2025-04-29 17:51 | XMS_ITS | Encounter Summary ---
Author Organization [facility] Address [address] [place] [address] Care Team Providers Care Vegetable Scullion Name Role Phone Dara Tavera Primary Care Provider Encounter Details Date Type Department Care Team (Latest Contact Info) Description 02/26/2007 Outpatient Historical [facility] Ambulance [address] [place] [address] AMBULANCE, [facility] Abdominal Pain, Unspecified Site (Primary Dx) Social History Tobacco Use Types Packs/Day Years Used Date Smoking Tobacco: Never Assessed Comments Unknown Sex and Gender Information Value Date Recorded Sex Assigned at Not on file Legal Sex Female 5:22 AM POLYTECHNIC REGISTRAR Gender Identity Not on file Sexual Orientation Not on file documented as of this encounter Plan of Treatment Not on file documented as of this encounter Visit Diagnoses Diagnosis Abdominal pain, unspecified site- Primary documented in this encounter Additional Health Concerns Infection Onset Date Last Indicated Resolved Time VRE Comment:Urine 10/30/13 Resolved 11/04/2013 11/04/2013 8 10:33 AM POLYTECHNIC REGISTRAR R/O COVID-19 12/25/2019 12/25/2019 12/26/2019 2:46 PM CDT R/O COVID-19 05/09/2020 05/09/2020 05/09/2020 12:1 7 PM POLYTECHNIC REGISTRAR documented as of this encounter Care Teams Vegetable Scullion Relationship Specialty Start Date End Date Dara Tavera FNP [address] [place] [phone] PCP - General NURSE PRACTITIONER 10/13/18 documented as of this encounter
--- OUTSIDE RECORDS SUMMARY | 2025-04-29 17:51 | XMS_ITS | Encounter Summary ---
Author Organization [facility] Address [address] [place] [address] Care Team Providers Care Pumping Station Supervisor Name Role Phone Dara Tavera Primary Care Provider [phone] Encounter Details Date Type Department Care Team (Late st Contact Info) Description 05/08/2007 Emergency [facility] Emergency Department [address] [place] [address] [place], NO ADDRESS ON FILE Shortness of Breath (Primary Dx) Social History Tobacco Use Types Packs/Day Years Used Date Smoking Tobacco: Never Assessed Comments Unknown Sex and Gender Information Value Date Recorded Sex Assigned at Not on file Legal Sex Female 5:22 AM ADVERTISEMENT DISTRIBUTOR Gender Identity Not on file Sexual Orientation Not on file documented as of this encounter Plan of Treatment Not on file documented as of this encounter Visit Diagnoses Diagnosis Shortness of breath- Primary documented in this encounter Additional Health Concerns Infection Onset Date Last Indicated Resolved Time VRE Comment:Urine 10/30/13 Resolved 11/04/2013 11/04/2013 8 10:33 AM ADVERTISEMENT DISTRIBUTOR R/O COVID-19 12/25/2019 12/25/2019 12/26/2019 2:46 PM CDT R/O COVID-19 05/09/2020 05/09/2020 05/09/2020 12:1 7 PM ADVERTISEMENT DISTRIBUTOR documented as of this encounter Care Teams Pumping Station Supervisor Relationship Specialty Start Date End Date Dara Tavera FNP [address] [place] [address] PCP - General NURSE PRACTITIONER 10/13/18 documented as of this encounter
--- OUTSIDE RECORDS SUMMARY | 2025-04-29 17:51 | XMS_ITS | Encounter Summary ---
Author Organization [facility] Address [address] [place] [address] Care Team Providers Care Assistant Art Director Name Role Phone Dara Tavera AMANDEEP Primary Care Provider Encounter Details Date Type Department Care Team (Late st Contact Info) Description 05/21/2007 Emergency [facility] Emergency Department [address] [place] [address] Ed, Physician NO ADDRESS ON FILE Rory Lynn MD NO ADDRESS ON FILE Social History Tobacco Use Types Packs/Day Years Used Date Smoking Tobacco: Never Assessed Comments Unknown Sex and Gender Information Value Date Recorded Sex Assigned at Not on file Legal Sex Female 5:22 AM HARBOR TUG CAPTAIN Gender Identity Not on file Sexual Orientation Not on file documented as of this encounter Plan of Treatment Not on file documented as of this encounter Procedures Procedure Name Priority Date/Time Associated Diagnosis Comments CBC WITH DIFFERENTIAL Routine 05/21/2007 6:18 PM HARBOR TUG CAPTAIN documented in this encounter Results * (ABNORMAL) CBC WITH DIFFERENTIAL (05/21/2007 6:18 PM HARBOR TUG CAPTAIN) WBC 9.5 4.5 - 11.0 K/ul INTERFACE [...] 0.2 K/ul INTERFACE SYSTEM 05/21/2007 6:18 PM HARBOR TUG CAPTAIN us Rory Lynn MD HEMATOLOGY ORDERABLES Hakan earl INTERFACE SYSTEM Refer to clinic/hospital department documented in this encounter Visit Diagnoses Not on filedocumented in this encounter Additional Health Concerns Infection Onset Date Last Indicated Resolved Time VRE Comment:Urine 10/30/13 Resolved 11/04/2013 11/04/2013 8 10:33 AM HARBOR TUG CAPTAIN R/O COVID-19 12/25/2019 12/25/2019 12/26/2019 2:46 PM CDT R/O COVID-19 05/09/2020 05/09/2020 05/09/2020 12:1 7 PM HARBOR TUG CAPTAIN documented as of this encounter Care Teams Assistant Art Director Relationship Specialty Start Date End Date Dara Tavera FNP [address] [place] [phone] PCP - General NURSE PRACTITIONER 10/13/18 documented as of this encounter
--- OUTSIDE RECORDS SUMMARY | 2025-04-29 17:51 | XMS_ITS | Encounter Summary ---
Author Organization [facility] Address [address] [place] [address] Care Team Providers Care Riveter Portable Machine Name Role Phone Dara Tavera AMANDEEP Primary Care Provider [phone] Encounter Details Date Type Department Care Team (Latest Contact Info) Description 12/16/[address] [facility] Family Medicine- [address] [place] [phone] Ryan Don NP NO ADDRESS ON FILE Abdominal Pain, Unspecified Site (Primary Dx); Other Specified Disease of White Blood Cells; Cellulitis and Abscess of Unspecified Site; Nausea with Vomiting Social History Tobacco Use Types Packs/Day Years Used Date Smoking Tobacco: Never Assessed Comments Unknown Sex and Gender Information Value Date Recorded Sex Assigned at Not on file Legal Sex Female 5:22 AM PREMIUM CARD CANCELLATION CLERK Gender Identity Not on file Sexual [...] 10/30/13 Resolved 11/04/2013 11/04/2013 8 10:33 AM PREMIUM CARD CANCELLATION CLERK R/O COVID-19 12/25/2019 12/25/2019 12/26/2019 2:46 PM CDT R/O COVID-19 05/09/2020 05/09/2020 05/09/2020 12:1 7 PM PREMIUM CARD CANCELLATION CLERK documented as of this encounter Care Teams Riveter Portable Machine Relationship Specialty Start Date End Date Dara Tavera FNP [address] [place] [phone] PCP - General NURSE PRACTITIONER 10/13/18 documented as of this encounter
--- OUTSIDE RECORDS SUMMARY | 2025-04-29 17:51 | XMS_ITS | Encounter Summary ---
Author Organization [facility] Address [address] [place] [address] Care Team Providers Care Bus Matron Name Role Phone Dara Tavera Primary Care Provider Encounter Details Date Type Department Care Team (Latest Contact Info) Description 11/17/2005 Outpatient Historical [facility] Ambulance [address] [place] [address] AMBULANCE, [facility] Non-Healing Surgical Wound (Primary Dx) Social History Tobacco Use Types Packs/Day Years Used Date Smoking Tobacco: Never Assessed Comments Unknown Sex and Gender Information Value Date Recorded Sex Assigned at Not on file Legal Sex Female 5:22 AM VETERINARY RECEPTIONIST Gender Identity Not on file Sexual Orientation Not on file documented as of this encounter Plan of Treatment Not on file documented as of this encounter Visit Diagnoses Diagnosis Non-healing surgical wound- Primary documented in this encounter Additional Health Concerns Infection Onset Date Last Indicated Resolved Time VRE Comment:Urine 10/30/13 Resolved 11/04/2013 11/04/2013 8 10:33 AM VETERINARY RECEPTIONIST R/O COVID-19 12/25/2019 12/25/2019 12/26/2019 2:46 PM CDT R/O COVID-19 05/09/2020 05/09/2020 05/09/2020 12:1 7 PM VETERINARY RECEPTIONIST documented as of this encounter Care Teams Bus Matron Relationship Specialty Start Date End Date Dara Tavera FNP [address] [place] [phone] PCP - General NURSE PRACTITIONER 10/13/18 documented as of this encounter
--- OUTSIDE RECORDS SUMMARY | 2025-04-29 17:51 | XMS_ITS | Encounter Summary ---
Author Organization [facility] Address [address] [place] [address] Care Team Providers Care Linux Systems Analyst Name Role Phone Dara Tavera COMMODITY SUPERVISOR Primary Care Provider Encounter Details Date Type Department Care Team (Late st Contact Info) Description 06/14/2007 Outpatient Historical HIS IN BED Amaury De La Rosa MD NO ADDRESS ON FILE Richie Vargas Jr., MD [address] [place] [address] Social History Tobacco Use Types Packs/Day Years Used Date Smoking Tobacco: Never Assessed Comments Unknown Sex and Gender Information Value Date Recorded Sex Assigned at Not on file Legal Sex Female 5:22 AM ROUSTABOUT Gender Identity Not on file Sexual Orientation Not on file documented as of this encounter Plan of Treatment Not on file documented as of this encounter Procedures Procedure Name Priority Date/Time Associated Diagnosis Comments URINALYSIS W/REFLEX MICROSCOPIC Routine 06/15/2007 12:13 PM ROUSTABOUT POC GLUCOSE Routine 06/15/2007 11:42 AM ROUSTABOUT POC GLUCOSE Routine 06/15/2007 5:10 AM ROUSTABOUT CARDIAC ENZYMES Routine 06/15/2007 4:21 AM ROUSTABOUT CBC WITH DIFFERENTIAL Routine 06/15/2007 4:21 AM ROUSTABOUT TSH Routine 06/15/2007 4:21 AM ROUSTABOUT T4 FREE Routine 06/15/2007 4:21 AM ROUSTABOUT LIPID PANEL Routine 06/15/2007 4:21 AM ROUSTABOUT COMPREHENSIVE METABOLIC PANEL Routine 06/15/2007 4:21 AM ROUSTABOUT POC GLUCOSE Routine 06/15/2007 2:02 AM ROUSTABOUT CARDIAC ENZYMES Routine 06/14/2007 10:20 PM ROUSTABOUT CARDIAC ENZYMES Routine 06/14/2007 4:07 PM ROUSTABOUT CBC WITH DIFFERENTIAL Routine 06/14/2007 4:07 PM ROUSTABOUT PTT Routine 06/14/2007 4:07 PM ROUSTABOUT PROTIME-INR Routine 06/14/2007 4:07 PM ROUSTABOUT BASIC METABOLIC PANEL Routine 06/14/2007 4:07 PM ROUSTABOUT documented in this encounter Results * URINALYSIS (06/15/2007 12:13 PM ROUSTABOUT) COLOR UA Yellow Straw INTERFACE SYSTEM CLARITY [...] No INTERFACE SYSTEM 06/15/2007 12:1 3 PM ROUSTABOUT us Richie Vargas Jr., MD URINE ORDERABLES Edite d INTERFACE SYSTEM Refer to clinic/hospital department * (ABNORMAL) POC GLUCOSE (06/15/2007 11:42 AM ROUSTABOUT) GLUCOSE POC 114(H) 60 - 100 mg/dL INTERFACE SYSTEM 06/15/2007 11:4 2 AM ROUSTABOUT Result Tracey Vargas Jr., MD POINT OF CARE TESTING Edited Performing Organization Address [facility] Phone Number INTERFACE SYSTEM Refer to clinic/hospital department * (ABNORMAL) POC GLUCOSE (06/15/2007 5:10 AM ROUSTABOUT) GLUCOSE POC 116(H) 60 - 100 mg/dL INTERFACE SYSTEM 06/15/2007 5:10 AM ROUSTABOUT Result Tracey Vargas Jr., MD POINT OF CARE TESTING Edited Performing Organization Address [facility] Phone Number INTERFACE SYSTEM Refer to clinic/hospital department * TSH (06/15/2007 4:21 AM ROUSTABOUT) TSH 1.340 0.350 - 5.500 uIU/ml INTERFACE SYSTEM 06/15/2007 4:21 AM ROUSTABOUT Result Tracey Vargas Jr., MD CHEMISTRY ORDERABLES E dited Performing Organization Address [facility] Phone Number INTERFACE SYSTEM Refer to clinic/hospital department * (ABNORMAL) T4 FREE (06/15/2007 4:21 AM ROUSTABOUT) T4 FREE 0.64(L) 0.89 - 1.76 ng/dL INTERFACE SYSTEM 06/15/2007 4:21 AM ROUSTABOUT Result Tracey Vargas Jr., MD CHEMISTRY ORDERABLES E dited Performing Organization Address [facility] Phone Number INTERFACE SYSTEM Refer to clinic/hospital department * (ABNORMAL) LIPID PANEL (06/15/2007 4:21 AM ROUSTABOUT) CHOLESTEROL 208(H) 75 - 200 mg/dL INTERFACE SYSTEM HDL 41 40 - 60 mg/dL INTERFACE SYSTEM TRIGLYCERIDE 206(H) 0 - 168 mg/dL INTERFACE SYSTEM CALCULATED LDL CHOLESTEROL 126 0 - 130 mg/dL INTERFACE SYSTEM CALCULATED TOTAL CHOLESTEROL TO HDL RATIO 5.07(H) 3.27 - 4.44 INTERFACE SYSTEM 06/15/2007 4:21 AM ROUSTABOUT Richie Vargas Jr., MD CHEMISTRY ORDERABLES E dited Performing Organization Address [facility] Phone Number INTERFACE SYSTEM Refer to clinic/hospital department * (ABNORMAL) COMPREHENSIVE METABOLIC PANEL (06/15/2007 4:21 AM ROUSTABOUT) GLUCOSE 94 70 - 110 mg/dL INTERFACE [...] 295 mOsm/Kg INTERFACE SYSTEM 06/15/2007 4:21 AM ROUSTABOUT Richie Vargas Jr., MD CHEMISTRY ORDERABLES E dited Performing Organization Address [facility] Phone Number INTERFACE SYSTEM Refer to clinic/hospital department * (ABNORMAL) CBC WITH DIFFERENTIAL (06/15/2007 4:21 AM ROUSTABOUT) WBC 13.1(H) 4.5 - 11.0 K/ul INTERFACE [...] 0.2 K/ul INTERFACE SYSTEM 06/15/2007 4:21 AM ROUSTABOUT Richie Vargas Jr., MD HEMATOLOGY ORDERABLES Edited Performing Organization Address [facility] de Phone Number INTERFACE SYSTEM Refer to clinic/hospital department * CARDIAC ENZYMES (06/15/2007 4:21 AM ROUSTABOUT) TROPONIN I <0.1 0.0 - 1.3 ng/mL INTERFACE SYSTEM CKMB 1.0 0.0 - 5.0 ng/mL INTERFACE SYSTEM 06/15/2007 4:21 AM ROUSTABOUT Amaury De La Rosa MD CHEMISTRY ORDERABLES Edited Performing Organization Address City/[facility]/ZIP Co de Phone Number INTERFACE SYSTEM Refer to clinic/hospital department * (ABNORMAL) POC GLUCOSE (06/15/2007 2:02 AM ROUSTABOUT) GLUCOSE POC 115(H) 60 - 100 mg/dL INTERFACE SYSTEM 06/15/2007 2:02 AM ROUSTABOUT us Richie Vargas Jr., MD POINT OF CARE TESTING Edited Performing Organization Address [facility] Phone Number INTERFACE SYSTEM Refer to clinic/hospital department * CARDIAC ENZYMES (06/14/2007 10:20 PM ROUSTABOUT) Pathologist [facility] TROPONIN I <0.1 0.0 - 1.3 ng/mL INTERFACE SYSTEM CKMB 0.3 0.0 - 5.0 ng/mL INTERFACE SYSTEM 06/14/2007 10:2 0 PM ROUSTABOUT Amaury De La Rosa MD CHEMISTRY ORDERABLES Edited Performing Organization Address [facility] Phone Number INTERFACE SYSTEM Refer to clinic/hospital department * (ABNORMAL) CBC WITH DIFFERENTIAL (06/14/2007 4:07 PM ROUSTABOUT) Pathologist [facility] WBC 14.3(H) 4.5 - 11.0 K/ul INTERFACE [...] 0.2 K/ul INTERFACE SYSTEM 06/14/2007 4:07 PM ROUSTABOUT Amaury De La Rosa MD HEMATOLOGY ORDERABLES Edited Performing Organization Address [facility] Phone Number INTERFACE SYSTEM Refer to clinic/hospital department * PTT (06/14/2007 4:07 PM ROUSTABOUT) PTT 34.4 21.6 - 35.6 Secs INTERFACE SYSTEM 06/14/2007 4:07 PM ROUSTABOUT Amaury De La Rosa MD HEMATOLOGY ORDERABLES Edited Performing Organization Address [facility] Phone Number INTERFACE SYSTEM Refer to clinic/hospital department * PROTIME-INR (06/14/2007 4:07 PM ROUSTABOUT) PROTIME 14.0 13.0 - 15.7 Secs INTERFACE SYSTEM INR 1.0 INTERFACE SYSTEM 06/14/2007 4:07 PM ROUSTABOUT Amaury De La Rosa MD HEMATOLOGY ORDERABLES Edited Performing Organization Address [facility] Phone Number INTERFACE SYSTEM Refer to clinic/hospital department * (ABNORMAL) BASIC METABOLIC PANEL (06/14/2007 4:07 PM ROUSTABOUT) GLUCOSE 90 70 - 110 mg/dL INTERFACE [...] 295 mOsm/Kg INTERFACE SYSTEM 06/14/2007 4:07 PM ROUSTABOUT Amaury De La Rosa MD CHEMISTRY ORDERABLES Edited Performing Organization Address [facility] de Phone Number INTERFACE SYSTEM Refer to clinic/hospital department * CARDIAC ENZYMES (06/14/2007 4:07 PM ROUSTABOUT) TROPONIN I <0.1 0.0 - 1.3 ng/mL INTERFACE SYSTEM CKMB 1.3 0.0 - 5.0 ng/mL INTERFACE SYSTEM 06/14/2007 4:07 PM ROUSTABOUT Amaury De La Rosa MD CHEMISTRY ORDERABLES Edited Performing Organization Address [facility] Phone Number INTERFACE SYSTEM Refer to clinic/hospital department documented in this encounter Visit Diagnoses Not on filedocumented in this encounter Additional Health Concerns Infection Onset Date Last Indicated Resolved Time VRE Comment:Urine 10/30/13 Resolved 11/04/2013 11/04/2013 8 10:33 AM ROUSTABOUT R/O COVID-19 12/25/2019 12/25/2019 12/26/2019 2:46 PM CDT R/O COVID-19 05/09/2020 05/09/2020 05/09/2020 12:1 7 PM ROUSTABOUT documented as of this encounter Care Teams Linux Systems Analyst Relationship Specialty Start Date End Date Dara Tavera FNP [address] [place] [phone] PCP - General NURSE PRACTITIONER 10/13/18 documented as of this encounter
--- OUTSIDE RECORDS SUMMARY | 2025-04-29 17:51 | XMS_ITS | Encounter Summary ---
Author Organization [facility] Address [address] [place] [address] Care Team Providers Care Embroidery Cutter Name Role Phone Dara Tavera Primary Care Provider [phone] Encounter Details Date Type Department Care Team (Late st Contact Info) Description 05/12/2007 Emergency [facility] Emergency Department [address] [place] [address] Isaac Kovacs PA [address], [place] [id number] Neck Sprain and Strain (Primary Dx) Social History Tobacco Use Types Packs/Day Years Used Date Smoking Tobacco: Never Assessed Comments Unknown Sex and Gender Information Value Date Recorded Sex Assigned at Not on file Legal Sex Female 5:22 AM ACOUSTICAL ENGINEER Gender Identity Not on file Sexual Orientation Not on file documented as of this encounter Plan of Treatment Not on file documented as of this encounter Visit Diagnoses Diagnosis Sprain of neck- Primary documented in this encounter Additional Health Concerns Infection Onset Date Last Indicated Resolved Time VRE Comment:Urine 10/30/13 Resolved 11/04/2013 11/04/2013 8 10:33 AM ACOUSTICAL ENGINEER R/O COVID-19 12/25/2019 12/25/2019 12/26/2019 2:46 PM CDT R/O COVID-19 05/09/2020 05/09/2020 05/09/2020 12:1 7 PM ACOUSTICAL ENGINEER documented as of this encounter Care Teams Embroidery Cutter Relationship Specialty Start Date End Date Dara Tavera FNP [address] [place] [phone] PCP - General NURSE PRACTITIONER 10/13/18 documented as of this encounter
--- OUTSIDE RECORDS SUMMARY | 2025-04-29 17:51 | XMS_ITS | Encounter Summary ---
Author Organization [facility] Address [address] [place] [address] Care Team Providers Care Institute Director Name Role Phone Dara Tavera AMANDEEP Primary Care Provider Encounter Details Date Type Department Care Team (Late st Contact Info) Description 04/30/2007 Outpatient [facility] [address] [place] [address] [facility]BULANCE, [facility] Social History Tobacco Use Types Packs/Day Years Used Date Smoking Tobacco: Never Assessed Comments Unknown Sex and Gender Information Value Date Recorded Sex Assigned at Not on file Legal Sex Female 5:22 AM DIESEL MECHANIC Gender Identity Not on file Sexual Orientation Not on file documented as of this encounter Plan of Treatment Not on file documented as of this encounter Procedures Procedure Name Priority Date/Time Associated Diagnosis Comments CT ABDOMEN PELVIS W CONTRAST Routine 04/30/2007 8:07 PM DIESEL MECHANIC documented in this encounter Results * CT ABDOMEN PELVIS W CONTRAST (04/30/2007 8:07 PM DIESEL MECHANIC) Anatomical Region Laterality Modality Abdomen Other 04/30/2007 8:07 PM DIESEL MECHANIC Narrative 04/30/2007 8:[address] Scan Abdomen and Pelvis with contrast [...] Resolved 11/04/2013 11/04/2013 8 10:33 AM DIESEL MECHANIC R/O COVID-19 12/25/2019 12/25/2019 12/26/2019 2:46 PM CDT R/O COVID-19 05/09/2020 05/09/2020 05/09/2020 12:1 7 PM DIESEL MECHANIC documented as of this encounter Care Teams Institute Director Relationship Specialty Start Date End Date Dara Tavera FNP [address] [place] [address] PCP - General NURSE PRACTITIONER 10/13/18 documented as of this encounter
--- OUTSIDE RECORDS SUMMARY | 2025-04-29 17:51 | XMS_ITS | Encounter Summary ---
Author Organization [facility] Address [address] [place] [address] Care Team Providers Care Dental Technician Name Role Phone Dara Tavera Primary Care Provider Encounter Details Date Type Department Care Team (Latest Contact Info) Description 12/03/2005 Outpatient Historical [facility] [address] [place] [address] AMBULANCE, [facility] Disruption of External Operation Wound, not Elsewhere Classified (Primary Dx) Social History Tobacco Use Types Packs/Day Years Used Date Smoking Tobacco: Never Assessed Comments Unknown Sex and Gender Information Value Date Recorded Sex Assigned at Not on file Legal Sex Female 5:22 AM DRY ROLLER Gender Identity Not on file Sexual Orientation Not on file documented as of this encounter Plan of Treatment Not on file documented as of this encounter Visit Diagnoses Diagnosis Disruption of external operation (surgical) wound- Primary documented in this encounter Additional Health Concerns Infection Onset Date Last Indicated Resolved Time VRE Comment:Urine 10/30/13 Resolved 11/04/2013 11/04/2013 8 10:33 AM DRY ROLLER R/O COVID-19 12/25/2019 12/25/2019 12/26/2019 2:46 PM CDT R/O COVID-19 05/09/2020 05/09/2020 05/09/2020 12:1 7 PM DRY ROLLER documented as of this encounter Care Teams Dental Technician Relationship Specialty Start Date End Date Dara Tavera FNP [address] [place] [phone] PCP - General NURSE PRACTITIONER 10/13/18 documented as of this encounter
--- OUTSIDE RECORDS SUMMARY | 2025-04-29 17:51 | XMS_ITS | Encounter Summary ---
Author Organization [facility] Address [address] [place] [address] Care Team Providers Care Stamping Die Maker Bench Name Role Phone Dara Tavera RESIDENT CARE MANAGER RN Primary Care Provider Encounter Details Date Type Department Care Team (Late st Contact Info) Description 06/17/2007 Outpatient Historical HIS IN BED Sammi Justice MD [address] [place] [address] Murphy Espitia MD NO ADDRESS [...] on file Legal Sex Female 5:22 AM CRANE HOIST OR LIFT OPERATOR Gender Identity Not on file Sexual Orientation Not on file documented as of this encounter Plan of Treatment Not on file documented as of this encounter Procedures Procedure Name Priority Date/Time Associated Diagnosis Comments CBC WITH DIFFERENTIAL Routine 06/20/2007 4:40 AM CRANE HOIST OR LIFT OPERATOR BASIC METABOLIC PANEL Routine 06/20/2007 4:40 AM CRANE HOIST OR LIFT OPERATOR URINALYSIS W/REFLEX MICROSCOPIC Routine 06/19/2007 5:59 AM CRANE HOIST OR LIFT OPERATOR CARDIAC ENZYMES Routine 06/18/2007 7:40 AM CRANE HOIST OR LIFT OPERATOR CARDIAC ENZYMES Routine 06/18/2007 1:45 AM CRANE HOIST OR LIFT OPERATOR CBC WITH DIFFERENTIAL Routine 06/18/2007 1:45 AM CRANE HOIST OR LIFT OPERATOR TSH Routine 06/18/2007 1:45 AM CRANE HOIST OR LIFT OPERATOR COMPREHENSIVE METABOLIC PANEL Routine 06/18/2007 1:45 AM CRANE HOIST OR LIFT OPERATOR PT AND APTT Routine 06/17/2007 7:50 PM CRANE HOIST OR LIFT OPERATOR CARDIAC ENZYMES Routine 06/17/2007 7:50 PM CRANE HOIST OR LIFT OPERATOR CBC WITH DIFFERENTIAL Routine 06/17/2007 7:50 PM CRANE HOIST OR LIFT OPERATOR BRAIN NATRIURETIC PEPTIDE, BNP OR PROBNP Routine 06/17/2007 7:50 PM CRANE HOIST OR LIFT OPERATOR BASIC METABOLIC PANEL Routine 06/17/2007 7:50 PM CRANE HOIST OR LIFT OPERATOR POC BLOOD GAS, LYTES AND H+H Routine 06/17/2007 6:48 PM CRANE HOIST OR LIFT OPERATOR documented in this encounter Results * BASIC METABOLIC PANEL (06/20/2007 4:40 AM CRANE HOIST OR LIFT OPERATOR) GLUCOSE 99 70 - 110 mg/dL [...] 295 mOsm/Kg INTERFACE SYSTEM 06/20/2007 4:40 AM CRANE HOIST OR LIFT OPERATOR us Murphy Espitia MD CHEMISTRY ORDERABLES Edited INTERFACE SYSTEM Refer to clinic/hospital department * (ABNORMAL) CBC WITH DIFFERENTIAL (06/20/2007 4:40 AM CRANE HOIST OR LIFT OPERATOR) WBC 10.6 4.5 - 11.0 K/ul [...] 0.2 K/ul INTERFACE SYSTEM 06/20/2007 4:40 AM CRANE HOIST OR LIFT OPERATOR us Murphy Espitia MD HEMATOLOGY ORDERABLES Edited INTERFACE SYSTEM Refer to clinic/hospital department * URINALYSIS (06/19/2007 5:59 AM CRANE HOIST OR LIFT OPERATOR) COLOR UA Yellow Straw INTERFACE SYSTEM [...] No No INTERFACE SYSTEM 06/19/2007 5:59 AM CRANE HOIST OR LIFT OPERATOR Murphy Espitia MD URINE ORDERABLES Edited Performing Organization Address [facility] Phone Number INTERFACE SYSTEM Refer to clinic/hospital department * CARDIAC ENZYMES (06/18/2007 7:40 AM CRANE HOIST OR LIFT OPERATOR) TROPONIN I <0.1 0.0 - 1.3 ng/mL INTERFACE SYSTEM CKMB 1.9 0.0 - 5.0 ng/mL INTERFACE SYSTEM 06/18/2007 7:40 AM CRANE HOIST OR LIFT OPERATOR Sammi Justice MD CHEMISTRY ORDERABLES Edited Performing Organization Address [facility] Phone Number INTERFACE SYSTEM Refer to clinic/hospital department * TSH (06/18/2007 1:45 AM CRANE HOIST OR LIFT OPERATOR) TSH 0.530 0.350 - 5.500 uIU/ml INTERFACE SYSTEM 06/18/2007 1:45 AM CRANE HOIST OR LIFT OPERATOR Murphy Espitia MD CHEMISTRY ORDERABLES Edited Performing Organization Address [facility] Phone Number INTERFACE SYSTEM Refer to clinic/hospital department * (ABNORMAL) COMPREHENSIVE METABOLIC PANEL (06/18/2007 1:45 AM CRANE HOIST OR LIFT OPERATOR) GLUCOSE 227(H) 70 - 110 mg/dL [...] 295 mOsm/Kg INTERFACE SYSTEM 06/18/2007 1:45 AM CRANE HOIST OR LIFT OPERATOR us Murphy Espitia MD CHEMISTRY ORDERABLES Edited INTERFACE SYSTEM Refer to clinic/hospital department * (ABNORMAL) CBC WITH DIFFERENTIAL (06/18/2007 1:45 AM CRANE HOIST OR LIFT OPERATOR) WBC 22.9(H) 4.5 - 11.0 K/ul [...] 0.2 K/ul INTERFACE SYSTEM 06/18/2007 1:45 AM CRANE HOIST OR LIFT OPERATOR Murphy Espitia MD HEMATOLOGY ORDERABLES Edited Performing Organization Address [facility] Phone Number INTERFACE SYSTEM Refer to clinic/hospital department * CARDIAC ENZYMES (06/18/2007 1:45 AM CRANE HOIST OR LIFT OPERATOR) TROPONIN I <0.1 0.0 - 1.3 ng/mL INTERFACE SYSTEM CKMB 1.7 0.0 - 5.0 ng/mL INTERFACE SYSTEM 06/18/2007 1:45 AM CRANE HOIST OR LIFT OPERATOR Sammi Justice MD CHEMISTRY ORDERABLES Edited Performing Organization Address [facility] Phone Number INTERFACE SYSTEM Refer to clinic/hospital department * (ABNORMAL) BRAIN NATRIURETIC PEPTIDE, BNP OR PROBNP (06/17/2007 7:50 PM CRANE HOIST OR LIFT OPERATOR) BRAIN NATRIURETIC PEPTIDE 211(H) 0 - 125 pg/mL INTERFACE SYSTEM 06/17/2007 7:50 PM CRANE HOIST OR LIFT OPERATOR Sammi Justice MD CHEMISTRY ORDERABLES Edited Performing Organization Address [facility] Phone Number INTERFACE SYSTEM Refer to clinic/hospital department * PT AND APTT (06/17/2007 7:50 PM CRANE HOIST OR LIFT OPERATOR) PROTIME 14.4 12.8 - 15.8 Secs INTERFACE SYSTEM INR 1.0 INTERFACE SYSTEM PTT 34.9 21.6 - 35.6 Secs INTERFACE SYSTEM 06/17/2007 7:50 PM CRANE HOIST OR LIFT OPERATOR us Sammi Justice MD HEMATOLOGY ORDERABLES Edite d Performing Organization Address [facility] Phone Number INTERFACE SYSTEM Refer to clinic/hospital department * CARDIAC ENZYMES (06/17/2007 7:50 PM CRANE HOIST OR LIFT OPERATOR) TROPONIN I <0.1 0.0 - 1.3 ng/mL INTERFACE SYSTEM CKMB 2.7 0.0 - 5.0 ng/mL INTERFACE SYSTEM 06/17/2007 7:50 PM CRANE HOIST OR LIFT OPERATOR Sammi Justice MD CHEMISTRY ORDERABLES Edited Performing Organization Address [facility] Phone Number INTERFACE SYSTEM Refer to clinic/hospital department * (ABNORMAL) BASIC METABOLIC PANEL (06/17/2007 7:50 PM CRANE HOIST OR LIFT OPERATOR) GLUCOSE 143(H) 70 - 110 mg/dL [...] 295 mOsm/Kg INTERFACE SYSTEM 06/17/2007 7:50 PM CRANE HOIST OR LIFT OPERATOR Sammi Justice MD CHEMISTRY ORDERABLES Edited Performing Organization Address [facility] Phone Number INTERFACE SYSTEM Refer to clinic/hospital department * (ABNORMAL) CBC WITH DIFFERENTIAL (06/17/2007 7:50 PM CRANE HOIST OR LIFT OPERATOR) WBC 20.9(H) 4.5 - 11.0 K/ul [...] 0.2 K/ul INTERFACE SYSTEM 06/17/2007 7:50 PM CRANE HOIST OR LIFT OPERATOR us Sammi Justice MD HEMATOLOGY ORDERABLES Edite d INTERFACE SYSTEM Refer to clinic/hospital department * (ABNORMAL) POC ISTAT EG 7+ (06/17/2007 6:48 PM CRANE HOIST OR LIFT OPERATOR) SPECIMEN TYPE Arterial INTERF SHANTE SYSTEM Comment: Test Performed By [id number] Pulse OX: 96 Hemoglobin calculated from Hematocrit [...] 1.32 mmol/l INTERFACE SYSTEM 06/17/2007 6:48 PM CRANE HOIST OR LIFT OPERATOR Murphy Espitia MD POINT OF CARE TESTING COM Edite d INTERFACE SYSTEM Refer to clinic/hospital department documented in this encounter Visit Diagnoses Diagnosis Unspecified asthma, with exacerbation Bipolar I disorder, most recent episode (or current) depressed, unspecified ([facility]) Bipolar I disorder, most recent episode (or current) depressed, unspecified Tobacco use disorder Obesity, unspecified Hypopotassemia Hypoxemia documented in this encounter Additional Health Concerns Infection Onset Date Last Indicated Resolved Time VRE Comment:Urine 10/30/13 Resolved 11/04/2013 11/04/2013 8 10:33 AM CRANE HOIST OR LIFT OPERATOR R/O COVID-19 12/25/2019 12/25/2019 12/26/2019 2:46 PM CDT R/O COVID-19 05/09/2020 05/09/2020 05/09/2020 12:1 7 PM CRANE HOIST OR LIFT OPERATOR documented as of this encounter Care Teams Stamping Die Maker Bench Relationship Specialty Start Date End Date Dara Tavera FNP [address] [place] [phone] PCP - General NURSE PRACTITIONER 10/13/18 documented as of this encounter
--- OUTSIDE RECORDS SUMMARY | 2025-04-29 17:51 | XMS_ITS | Encounter Summary ---
Author Organization [facility] Address [address] [place] [address] Care Team Providers Care Zoo Caretaker Name Role Phone Dara Tavera AMANDEEP Primary Care Provider Encounter Details Date Type Department Care Team (Late st Contact Info) Description 04/04/2007 Emergency [facility] Emergency Department [address] [place] [address] Sammi Justice MD [address] [facility] [address] [place] [address] Unspecified Chest Pain (Primary Dx) Social History Tobacco Use Types Packs/Day Years Used Date Smoking Tobacco: Never Assessed Comments Unknown Sex and Gender Information Value Date Recorded Sex Assigned at Not on file Legal Sex Female 5:22 AM SHUTTLE OPERATOR Gender Identity Not on file Sexual [...] HEMATOLOGY ORDERABLES Edite d Performing Organization Address [facility] Phone Number INTERFACE SYSTEM [...] HEMATOLOGY ORDERABLES Edite d Performing Organization Address [facility] Phone Number INTERFACE SYSTEM [...] Goal INR 3.0; range 2.5 - 3.5 POST-MA Goal INR 2.5; range 2.0 - 3.0 or Goal 3.0; range 2.5 - 3.5 Atrial Fibrillation Goal INR 2.5; range 2.0 - 3.0 Ischemic Stroke Goal INR 2.5; range 2.0 - 3.0 For additional information see Guidelines for Anticoagulation available from the pharmacy [facility] Donoh[facility]. 04/04/2007 1:03 AM CDT Smami Justice MD HEMATOLOGY ORDERABLES Edite d Performing Organization Address [facility] Phone Number INTERFACE SYSTEM [...] MD CHEMISTRY ORDERABLES Edited Performing Organization Address [facility] Phone Number INTERFACE SYSTEM Refer to clinic/hospital [...] MD CHEMISTRY ORDERABLES Edited Performing Organization Address [facility] Phone Number INTERFACE SYSTEM Refer to clinic/hospital department documented in this encounter Visit Diagnoses Diagnosis Chest pain, unspecified- Primary documented in this encounter Additional Health Concerns Infection Onset Date Last Indicated Resolved Time VRE Comment:Urine 10/30/13 Resolved 11/04/2013 11/04/201307/26/201 8 10:33 AM SHUTTLE OPERATOR R/O COVID-19 12/25/2019 12/25/2019 12/26/2019 2:46 PM CDT R/O COVID-19 05/09/2020 05/09/2020 05/09/2020 12:1 7 PM SHUTTLE OPERATOR documented as of this encounter Care Teams Zoo Caretaker Relationship Specialty Start Date End Date Dara Tavera FNP [address] [place] [phone] PCP - General NURSE PRACTITIONER 10/13/18 documented as of this encounter
--- OUTSIDE RECORDS SUMMARY | 2025-04-29 17:51 | XMS_ITS | Encounter Summary ---
Author Organization [facility] Address [address] [place] [address] Care Team Providers Care Elevator Constructor Helper Name Role Phone Dara Tavera Primary Care Provider Encounter Details Date Type Department Care Team (Late st Contact Info) Description 05/13/2007 Outpatient [facility] [address] [place] [address] AMBULANCE, [facility] Social History Tobacco Use Types Packs/Day Years Used Date Smoking Tobacco: Never Assessed Comments Unknown Sex and Gender Information Value Date Recorded Sex Assigned at Not on file Legal Sex Female 5:22 AM SENIOR IT AUDITOR Gender Identity Not on file Sexual Orientation Not on file documented as of this encounter Plan of Treatment Not on file documented as of this encounter Visit Diagnoses Not on filedocumented in this encounter Additional Health Concerns Infection Onset Date Last Indicated Resolved Time VRE Comment:Urine 10/30/13 Resolved 11/04/2013 11/04/2013 8 10:33 AM SENIOR IT AUDITOR R/O COVID-19 12/25/2019 12/25/2019 12/26/2019 2:46 PM CDT R/O COVID-19 05/09/2020 05/09/2020 05/09/2020 12:1 7 PM SENIOR IT AUDITOR documented as of this encounter Care Teams Elevator Constructor Helper Relationship Specialty Start Date End Date Dara Tavera FNP [address] [place] [phone] PCP - General NURSE PRACTITIONER 10/13/18 documented as of this encounter
--- OUTSIDE RECORDS SUMMARY | 2025-04-29 17:51 | XMS_ITS | Encounter Summary ---
Author Organization [facility] Address [address] [place] [address] Care Team Providers Care Mechanical Cad Designer Name Role Phone Dara Tavera AMANDEEP Primary Care Provider Encounter Details Date Type Department Care Team (Late st Contact Info) Description 05/14/2007 Emergency [facility] Emergency Department [address] [place] [address] Kurt Nassar MD [address] [place] [address] Abdominal Pain, Unspecified Site (Primary Dx) Social History Tobacco Use Types Packs/Day Years Used Date Smoking Tobacco: Never Assessed Comments Unknown Sex and Gender Information Value Date Recorded Sex Assigned at Not on file Legal Sex Female 5:22 AM COMPUTER AIDED DESIGN TECHNICIAN Gender Identity Not on file Sexual Orientation Not on file documented as of this encounter Plan of Treatment Not on file documented as of this encounter Procedures Procedure Name Priority Date/Time Associated Diagnosis Comments URINALYSIS W/REFLEX MICROSCOPIC Routine 05/14/2007 12:20 PM COMPUTER AIDED DESIGN TECHNICIAN CBC WITH DIFFERENTIAL Routine 05/14/2007 11:37 AM COMPUTER AIDED DESIGN TECHNICIAN LIPASE Routine 05/14/2007 11:37 AM COMPUTER AIDED DESIGN TECHNICIAN AMYLASE Routine 05/14/2007 11:37 AM COMPUTER AIDED DESIGN TECHNICIAN COMPREHENSIVE METABOLIC PANEL Routine 05/14/2007 11:37 AM COMPUTER AIDED DESIGN TECHNICIAN documented in this encounter Results * URINALYSIS (05/14/2007 12:20 PM COMPUTER AIDED DESIGN TECHNICIAN) COLOR UA Yellow Straw INTERFACE SYSTEM CLARITY [...] No INTERFACE SYSTEM 05/14/2007 12:2 0 PM COMPUTER AIDED DESIGN TECHNICIAN Kurt Nassar MD URINE ORDERABLES Edited Performing Organization Address City/[facility] Co tx Phone Number INTERFACE SYSTEM Refer to clinic/hospital department * AMYLASE (05/14/2007 11:37 AM COMPUTER AIDED DESIGN TECHNICIAN) AMYLASE 46 20 - 104 U/L INTERFACE SYSTEM 05/14/2007 11:3 7 AM COMPUTER AIDED DESIGN TECHNICIAN Result [facility] Kurt Nassar MD CHEMISTRY ORDERABLES Edite d Performing Organization Address City/[facility] Co de Phone Number INTERFACE SYSTEM Refer to clinic/hospital department * LIPASE (05/14/2007 11:37 AM COMPUTER AIDED DESIGN TECHNICIAN) LIPASE 30 6 - 51 U/L INTERFACE SYSTEM 05/14/2007 11:3 7 AM COMPUTER AIDED DESIGN TECHNICIAN Kurt Nassar MD CHEMISTRY ORDERABLES Edite d Performing Organization Address City/[facility] Co de Phone Number INTERFACE SYSTEM Refer to clinic/hospital department * (ABNORMAL) COMPREHENSIVE METABOLIC PANEL (05/14/2007 11:37 AM COMPUTER AIDED DESIGN TECHNICIAN) GLUCOSE 104 70 - 110 mg/dL INTERFACE [...] mOsm/Kg INTERFACE SYSTEM 05/14/2007 11:3 7 AM COMPUTER AIDED DESIGN TECHNICIAN us Kurt Nassar MD CHEMISTRY ORDERABLES Edite d INTERFACE SYSTEM Refer to clinic/hospital department * (ABNORMAL) CBC WITH DIFFERENTIAL (05/14/2007 11:37 AM COMPUTER AIDED DESIGN TECHNICIAN) WBC 12.6(H) 4.5 - 11.0 K/ul INTERFACE [...] K/ul INTERFACE SYSTEM 05/14/2007 11:3 7 AM COMPUTER AIDED DESIGN TECHNICIAN us Kurt Nassar MD HEMATOLOGY ORDERABLES Edit ed INTERFACE SYSTEM Refer to clinic/hospital department documented in this encounter Visit Diagnoses Diagnosis Abdominal pain, unspecified site- Primary documented in this encounter Additional Health Concerns Infection Onset Date Last Indicated Resolved Time VRE Comment:Urine 10/30/13 Resolved 11/04/2013 11/04/2013 10:33 AM COMPUTER AIDED DESIGN TECHNICIAN R/O COVID-19 12/25/2019 12/25/2019 12/26/2019 2:46 PM CDT R/O COVID-19 05/09/2020 05/09/2020 05/09/2020 12:1 7 PM COMPUTER AIDED DESIGN TECHNICIAN documented as of this encounter Care Teams Mechanical Cad Designer Relationship Specialty Start Date End Date Dara Tavera FNP [address] [place] [phone] PCP - General NURSE PRACTITIONER 10/13/18 documented as of this encounter
--- OUTSIDE RECORDS SUMMARY | 2025-04-29 17:51 | XMS_ITS | Encounter Summary ---
Author Organization [facility] Address [address] [place] [address] Care Team Providers Care Panel Cutter Name Role Phone Dara Tavera Primary Care Provider Encounter Details Date Type Department Care Team (Latest Contact Info) Description 10/09/2005 Outpatient Historical [facility] Ambulance [address] [place] [address] AMBULANCE, [facility] Unspecified Nonpsychotic Mental Disorder (Primary Dx) Social History Tobacco Use Types Packs/Day Years Used Date Smoking Tobacco: Never Assessed Comments Unknown Sex and Gender Information Value Date Recorded Sex Assigned at Not on file Legal Sex Female 5:22 AM SCORER SINGLE Gender Identity Not on file Sexual Orientation Not on file documented as of this encounter Plan of Treatment Not on file documented as of this encounter Visit Diagnoses Diagnosis Unspecified nonpsychotic mental disorder- Primary documented in this encounter Additional Health Concerns Infection Onset Date Last Indicated Resolved Time VRE Comment:Urine 10/30/13 Resolved 11/04/2013 11/04/2013 8 10:33 AM SCORER SINGLE R/O COVID-19 12/25/2019 12/25/2019 12/26/2019 2:46 PM CDT R/O COVID-19 05/09/2020 05/09/2020 05/09/2020 12:1 7 PM SCORER SINGLE documented as of this encounter Care Teams Panel Cutter Relationship Specialty Start Date End Date Dara Tavera FNP [address] [place] [phone] PCP - General NURSE PRACTITIONER 10/13/18 documented as of this encounter
--- OUTSIDE RECORDS SUMMARY | 2025-04-29 17:51 | XMS_ITS | Encounter Summary ---
Author Organization [facility] Address [address] [place] [address] Care Team Providers Care Switchboard Wire Worker Helper Name Role Phone Dara Tavera AMANDEEP Primary Care Provider Encounter Details Date Type Department Care Team (Late st Contact Info) Description 05/16/2007 Emergency [facility] Emergency Department [address] [place] [address] Ed, Physician NO ADDRESS ON FILE Thiago Mota MD NO ADDRESS ON FILE Social History Tobacco Use Types Packs/Day Years Used Date Smoking Tobacco: Never Assessed Comments Unknown Sex and Gender Information Value Date Recorded Sex Assigned at Not on file Legal Sex Female 5:22 AM EDGING MACHINE FEEDER Gender Identity Not on file Sexual Orientation Not on file documented as of this encounter Plan of Treatment Not on file documented as of this encounter Procedures Procedure Name Priority Date/Time Associated Diagnosis Comments URINALYSIS MICROSCOPY ONLY Routine 05/16/2007 4:37 PM EDGING MACHINE FEEDER URINALYSIS W/REFLEX MICROSCOPIC Routine 05/16/2007 4:37 PM EDGING MACHINE FEEDER CBC WITH DIFFERENTIAL Routine 05/16/2007 4:32 PM EDGING MACHINE FEEDER LIPASE Routine 05/16/2007 4:32 PM EDGING MACHINE FEEDER AMYLASE Routine 05/16/2007 4:32 PM EDGING MACHINE FEEDER COMPREHENSIVE METABOLIC PANEL Routine 05/16/2007 4:32 PM EDGING MACHINE FEEDER documented in this encounter Results * (ABNORMAL) URINALYSIS (05/16/2007 4:37 PM EDGING MACHINE FEEDER) COLOR UA Yellow Straw INTERFACE SYSTEM CLARITY [...] Yes(A) No INTERFACE SYSTEM 05/16/2007 4:37 PM EDGING MACHINE FEEDER us Thiago Mota MD URINE ORDERABLES Edited Performing Organization Address [facility] Phone Number INTERFACE SYSTEM Refer to clinic/hospital department * (ABNORMAL) URINALYSIS MICROSCOPY ONLY (05/16/2007 4:37 PM EDGING MACHINE FEEDER) WBC URINE None Seen 0 - 2 INTERFACE SYSTEM RBC UA None Seen 0 - 2 INTERFACE SYSTEM HYALINE CAST None Seen 0 - 2 INTERFA CE SYSTEM BACTERIA UA Few(A) None Seen INTERFAC E SYSTEM 05/16/2007 4:37 PM EDGING MACHINE FEEDER us Thiago Mota MD URINE ORDERABLES Edited Performing Organization Address [facility] Phone Number INTERFACE SYSTEM Refer to clinic/hospital department * LIPASE (05/16/2007 4:32 PM EDGING MACHINE FEEDER) LIPASE 27 6 - 51 U/L INTERFACE SYSTEM 05/16/2007 4:32 PM EDGING MACHINE FEEDER us Thiago Mota MD CHEMISTRY ORDERABLES Edited Performing Organization Address [facility] Phone Number INTERFACE SYSTEM Refer to clinic/hospital department * AMYLASE (05/16/2007 4:32 PM EDGING MACHINE FEEDER) AMYLASE 48 20 - 104 U/L INTERFACE SYSTEM 05/16/2007 4:32 PM EDGING MACHINE FEEDER us Thiago Mota MD CHEMISTRY ORDERABLES Edited Performing Organization Address [facility] Phone Number INTERFACE SYSTEM Refer to clinic/hospital department * (ABNORMAL) COMPREHENSIVE METABOLIC PANEL (05/16/2007 4:32 PM EDGING MACHINE FEEDER) GLOBULIN (CALC) 3.0 2.4 - 3.9 g/dL [...] 295 mOsm/Kg INTERFACE SYSTEM 05/16/2007 4:32 PM EDGING MACHINE FEEDER us Thiago Mota MD CHEMISTRY ORDERABLES Edited Performing Organization Address [facility] Co de Phone Number INTERFACE SYSTEM Refer to clinic/hospital department * (ABNORMAL) CBC WITH DIFFERENTIAL (05/16/2007 4:32 PM EDGING MACHINE FEEDER) WBC 13.2(H) 4.5 - 11.0 K/ul INTERFACE [...] 0.2 K/ul INTERFACE SYSTEM 05/16/2007 4:32 PM EDGING MACHINE FEEDER Thiago Mota MD HEMATOLOGY ORDERABLES Edited INTERFACE SYSTEM Refer to clinic/hospital department documented in this encounter Visit Diagnoses Not on filedocumented in this encounter Additional Health Concerns Infection Onset Date Last Indicated Resolved Time VRE Comment:Urine 10/30/13 Resolved 11/04/2013 11/04/2013 8 10:33 AM EDGING MACHINE FEEDER R/O COVID-19 12/25/2019 12/25/2019 12/26/2019 2:46 PM CDT R/O COVID-19 05/09/2020 05/09/2020 05/09/2020 12:1 7 PM EDGING MACHINE FEEDER documented as of this encounter Care Teams Switchboard Wire Worker Helper Relationship Specialty Start Date End Date Dara Tavera FNP [address] [place] [phone] PCP - General NURSE PRACTITIONER 10/13/18 documented as of this encounter
--- OUTSIDE RECORDS SUMMARY | 2025-04-29 17:51 | XMS_ITS | Encounter Summary ---
Author Organization [facility] Address [address] [place] [address] Care Team Providers Care Clubhouse Attendant Name Role Phone Dara Tavera AMANDEEP Primary Care Provider Encounter Details Date Type Department Care Team (Late st Contact Info) Description 04/30/[address] [facility] Emergency Department [address] [place] [address] Jillian Joyce MD [address] [place] [address] Other Acute Pain (Primary Dx) Social History Tobacco Use Types Packs/Day Years Used Date Smoking Tobacco: Never Assessed Comments Unknown Sex and Gender Information Value Date Recorded Sex Assigned at Not on file Legal Sex Female 5:22 AM SERVICE STATION OPERATOR Gender Identity Not on file Sexual Orientation Not on file documented as of this encounter Plan of Treatment Not on file documented as of this encounter Procedures Procedure Name Priority Date/Time Associated Diagnosis Comments URINALYSIS W/REFLEX MICROSCOPIC Routine 04/30/2007 9:34 PM SERVICE STATION OPERATOR PT AND APTT Routine 04/30/2007 7:35 PM SERVICE STATION OPERATOR CBC WITH DIFFERENTIAL Routine 04/30/2007 7:35 PM SERVICE STATION OPERATOR LIPASE Routine 04/30/2007 7:35 PM SERVICE STATION OPERATOR COMPREHENSIVE METABOLIC PANEL Routine 04/30/2007 7:35 PM SERVICE STATION OPERATOR documented in this encounter Results * URINALYSIS (04/30/2007 9:34 PM SERVICE STATION OPERATOR) COLOR UA Straw Straw INTERFACE SYSTEM CLARITY [...] No No INTERFACE SYSTEM 04/30/2007 9:34 PM SERVICE STATION OPERATOR us Jillian Joyce MD URINE ORDERABLES Edited INTERFACE SYSTEM Refer to clinic/hospital department * PT AND APTT (04/30/2007 7:35 PM SERVICE STATION OPERATOR) PROTIME 15.1 13.0 - 15.7 Secs INTERFACE [...] in APTT Normal Range. 04/30/2007 7:35 PM SERVICE STATION OPERATOR Jillian Joyce MD HEMATOLOGY ORDERABLES Edit ed Performing Organization Address City/[facility]/ZIP Co de Phone Number INTERFACE SYSTEM Refer to clinic/hospital department * (ABNORMAL) CBC WITH DIFFERENTIAL (04/30/2007 7:35 PM SERVICE STATION OPERATOR) WBC 18.3(H) 4.5 - 11.0 K/ul INTERFACE [...] 0.2 K/ul INTERFACE SYSTEM 04/30/2007 7:35 PM SERVICE STATION OPERATOR Jillian Joyce MD HEMATOLOGY ORDERABLES Edit ed INTERFACE SYSTEM Refer to clinic/hospital department * (ABNORMAL) COMPREHENSIVE METABOLIC PANEL (04/30/2007 7:35 PM SERVICE STATION OPERATOR) GLUCOSE 103 70 - 110 mg/dL INTERFACE [...] 295 mOsm/Kg INTERFACE SYSTEM 04/30/2007 7:35 PM SERVICE STATION OPERATOR us Jillian Joyce MD CHEMISTRY ORDERABLES Edite d Performing Organization Address [facility] Phone Number INTERFACE SYSTEM Refer to clinic/hospital department * LIPASE (04/30/2007 7:35 PM SERVICE STATION OPERATOR) LIPASE 23 6 - 51 U/L INTERFACE SYSTEM 04/30/2007 7:35 PM SERVICE STATION OPERATOR Jillian Joyce MD CHEMISTRY ORDERABLES Edite d Performing Organization Address [facility] Co md Phone Number INTERFACE SYSTEM Refer to clinic/hospital department documented in this encounter Visit Diagnoses Diagnosis Other acute pain- Primary documented in this encounter Additional Health Concerns Infection Onset Date Last Indicated Resolved Time VRE Comment:Urine 10/30/13 Resolved 11/04/2013 11/04/2013 8 10:33 AM SERVICE STATION OPERATOR R/O COVID-19 12/25/2019 12/25/2019 12/26/2019 2:46 PM CDT R/O COVID-19 05/09/2020 05/09/2020 05/09/2020 12:1 7 PM SERVICE STATION OPERATOR documented as of this encounter Care Teams Clubhouse Attendant Relationship Specialty Start Date End Date Dara Tavera FNP [address] [place] [phone] PCP - General NURSE PRACTITIONER 10/13/18 documented as of this encounter
--- OUTSIDE RECORDS SUMMARY | 2025-04-29 17:51 | XMS_ITS | Encounter Summary ---
Author Organization [facility] Address [address] [place] [address] Care Team Providers Care Order Checker Name Role Phone Dara Tavera AMANDEEP Primary Care Provider Encounter Details Date Type Department Care Team (Late st Contact Info) Description 04/18/2007 Inpatient Historical [facility] Pawan Rosario MD [address] [place] [address] Bipolar Affective, Mixed, Sev w/ Psych (CMS/HCC) (Primary Dx) Social History Tobacco Use Types Packs/Day Years Used Date Smoking Tobacco: Never Assessed Comments Unknown Sex and Gender Information Value Date Recorded Sex Assigned at Not on file Legal Sex Female 5:22 AM BAKER APPRENTICE Gender Identity Not on file Sexual Orientation Not on file documented as of this encounter Plan of Treatment Not on file documented as of this encounter Procedures Procedure Name Priority Date/Time Associated Diagnosis Comments URINALYSIS W/REFLEX MICROSCOPIC Routine 04/22/2007 9:05 AM BAKER APPRENTICE LIPASE Routine 04/18/2007 10:54 AM CDT AMYLASE Routine 04/18/2007 10:54 AM CDT CBC WITH DIFFERENTIAL Routine 04/18/2007 10:48 AM CDT TSH Routine 04/18/2007 10:48 AM CDT ETHANOL LEVEL Routine 04/18/2007 10:48 AM CDT COMPREHENSIVE METABOLIC PANEL Routine 04/18/2007 10:48 AM CDT DRUG SCREEN, URINE Routine 04/18/2007 9: 47 AM CDT documented in this encounter Results * URINALYSIS (04/22/2007 9:05 AM BAKER APPRENTICE) COLOR UA Yellow Straw INTERFACE SYSTEM CLARITY [...] No No INTERFACE SYSTEM 04/22/2007 9:05 AM BAKER APPRENTICE us Pawan Rosario MD URINE ORDERABLES Edited Performing Organization Address [facility] Phone Number INTERFACE SYSTEM Refer to clinic/hospital department * LIPASE (04/18/2007 10:54 AM CDT) LIPASE 36 6 - 51 U/L INTERFACE SYSTEM 04/18/2007 10:5 4 AM CDT Benedicto Rojo MD CHEMISTRY ORDERABLES Edited Performing Organization Address [facility] Phone Number INTERFACE SYSTEM Refer to clinic/hospital department * AMYLASE (04/18/2007 10:54 AM CDT) AMYLASE 46 20 - 104 U/L INTERFACE SYSTEM 04/18/2007 10:5 4 AM CDT Benedicto Rojo MD CHEMISTRY ORDERABLES Edited Performing Organization Address [facility] Phone Number INTERFACE SYSTEM Refer to [...] Comment: As of 04 at 3:00 p.m. Lab has changed the methodology for TSH, and with this change the reference range has changed from 0.49-4.67 to 0.35-5.5 uIU/ml. 04/18/2007 10:4 8 AM CDT Benedicto Rojo MD CHEMISTRY ORDERABLES Edited Performing Organization Address [facility] Phone Number INTERFACE SYSTEM Refer to [...] MD CHEMISTRY ORDERABLES Edited Performing Organization Address [facility] Phone Number INTERFACE SYSTEM Refer to clinic/hospital department * ETHANOL (04/18/2007 10:48 AM CDT) ETHANOL <10 <=10 mg/dL INTERFACE SYSTEM ETHANOL % <0.010 <=0.010 % INTERFACE SYSTEM Comment: Beginning August 01, 2006, the Blood Alcohol from [facility] will be reported in % as well as mg/dl. 04/18/2007 10:4 8 AM CDT Benedicto Rojo MD CHEMISTRY ORDERABLES Edited Performing Organization Address [facility] Phone Number INTERFACE SYSTEM Refer to [...] MD URINE ORDERABLES Edited Performing Organization Address [facility] Phone Number INTERFACE SYSTEM Refer to clinic/hospital department documented in this encounter Visit Diagnoses Diagnosis Bipolar I disorder, most recent episode (or current) mixed, severe, specified as with psychotic behavior ([facility])- Primary Bipolar I disorder, most recent episode (or current) mixed, severe, specified as with psychotic behavior documented in this encounter Additional Health Concerns Infection Onset Date Last Indicated Resolved Time VRE Comment:Urine 10/30/13 Resolved 11/04/2013 11/04/2013 8 10:33 AM BAKER APPRENTICE R/O COVID-19 12/25/2019 12/25/2019 12/26/2019 2:46 PM CDT R/O COVID-19 05/09/2020 05/09/2020 05/09/2020 12:1 7 PM BAKER APPRENTICE documented as of this encounter Care Teams Order Checker Relationship Specialty Start Date End Date Dara Tavera FNP [address] [place] [phone] PCP - General NURSE PRACTITIONER 10/13/18 documented as of this encounter
--- OUTSIDE RECORDS SUMMARY | 2025-04-29 17:51 | XMS_ITS | Encounter Summary ---
Author Organization [facility] Address [address] [place] [address] Care Team Providers Care Director Insurance Name Role Phone Dara Tavera Primary Care Provider [phone] Encounter Details Date Type Department Care Team (Latest Contact Info) Description 05/01/2007 Outpatient Historical [facility] Urology- [address] Entrance B, 3rd [place] [address] Mason West MD NO ADDRESS ON FILE Abdominal Pain, Unspecified Site (Primary Dx) Social History Tobacco Use Types Packs/Day Years Used Date Smoking Tobacco: Never Assessed Comments Unknown Sex and Gender Information Value Date Recorded Sex Assigned at Not on file Legal Sex Female 5:22 AM TOMATO PULPER OPERATOR Gender Identity Not on file Sexual Orientation Not on file documented as of this encounter Plan of Treatment Not on file documented as of this encounter Visit Diagnoses Diagnosis Abdominal pain, unspecified site- Primary documented in this encounter Additional Health Concerns Infection Onset Date Last Indicated Resolved Time VRE Comment:Urine 10/30/13 Resolved 11/04/2013 11/04/2013 8 10:33 AM TOMATO PULPER OPERATOR R/O COVID-19 12/25/2019 12/25/2019 12/26/2019 2:46 PM CDT R/O COVID-19 05/09/2020 05/09/2020 05/09/2020 12:1 7 PM TOMATO PULPER OPERATOR documented as of this encounter Care Teams Director Insurance Relationship Specialty Start Date End Date Dara Tavera FNP [address] [place] [address] PCP - General NURSE PRACTITIONER 10/13/18 documented as of this encounter
--- OUTSIDE RECORDS SUMMARY | 2025-04-29 17:51 | XMS_ITS | Encounter Summary ---
Author Organization [facility] Address [address] [place] [address] Care Team Providers Care Automatic Pad Making Machine Operator Name Role Phone Dara Tavera AMANDEEP Primary Care Provider Encounter Details Date Type Department Care Team (Late st Contact Info) Description 04/26/2007 Emergency [facility] Emergency Department [address] [place] [address] Kenney Simmons MD [address] [place] [address] Abdominal Pain, Other Specified Site (Primary Dx) Social History Tobacco Use Types Packs/Day Years Used Date Smoking Tobacco: Never Assessed Comments Unknown Sex and Gender Information Value Date Recorded Sex Assigned at Not on file Legal Sex Female 5:22 AM INSECT CONTROL INSPECTOR Gender Identity Not on file Sexual Orientation Not on file documented as of this encounter Plan of Treatment Not on file documented as of this encounter Procedures Procedure Name Priority Date/Time Associated Diagnosis Comments URINALYSIS W/REFLEX MICROSCOPIC Routine 04/26/2007 11:48 [address] CONTROL INS[address]OR CT URINARY CALCULI WO CONTRAST Routine 04/26/2007 11:22 PM INSECT CONTROL INSPECTOR documented in this encounter Results * (ABNORMAL) URINALYSIS (04/26/2007 11:48 PM INSECT CONTROL INSPECTOR) COLOR UA Yellow Straw INTERFACE SYSTEM CLARITY [...] No INTERFACE SYSTEM 04/26/2007 11:4 8 PM INSECT CONTROL INSPECTOR us Physician Sj Ed URINE ORDERABLES Edited INTERFACE SYSTEM Refer to clinic/hospital department * CT RENAL COLIC WO CONT (04/26/2007 11:22 PM INSECT CONTROL INSPECTOR) Anatomical Region Laterality Modality Abdomen Other 04/26/2007 11:2 2 PM INSECT CONTROL INSPECTOR Narrative 04/26/2007 11:22 PM IN[address] CONTROL INSPECTOR CT Scan For Renal Colic: Date: 04/27/2007History: [...] degenerative changes in the spine. 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 Impression: No urinary [...] 10/30/13 Resolved 11/04/2013 11/04/2013 8 10:33 AM INSECT CONTROL INSPECTOR R/O COVID-19 12/25/2019 12/25/2019 12/26/2019 2:46 PM CDT R/O COVID-19 05/09/2020 05/09/2020 05/09/2020 12:1 7 PM INSECT CONTROL INSPECTOR documented as of this encounter Care Teams Automatic Pad Making Machine Operator Relationship Specialty Start Date End Date Dara Tavera FNP [address] [place] [phone] PCP - General NURSE PRACTITIONER 10/13/18 documented as of this encounter
--- OUTSIDE RECORDS SUMMARY | 2025-04-29 17:51 | XMS_ITS | Encounter Summary ---
Author Organization [facility] Address [address] [place] [address] Care Team Providers Care Stores Assistant Name Role Phone Dara Tavera AMANDEEP Primary Care Provider Encounter Details Date Type Department Care Team (Late st Contact Info) Description 04/04/2007 Emergency [facility] Emergency Department [address] [place] [address] Thiago Mota MD NO ADDRESS ON FILE Painful Respiration (Primary Dx) Social History Tobacco Use Types Packs/Day Years Used Date Smoking Tobacco: Never Assessed Comments Unknown Sex and Gender Information Value Date Recorded Sex Assigned at Not on file Legal Sex Female 5:22 AM COSTUME DRAPER Gender Identity Not on file Sexual Orientation [...] MD URINE ORDERABLES Edited Performing Organization Address [facility] Phone Number INTERFACE SYSTEM Refer to clinic/hospital department * CARDIAC ENZYMES (04/04/2007 12:00 PM CDT) Pathologist [facility] TROPONIN I <0.1 0.0 - 1.3 ng/mL INTERFACE SYSTEM Comment: As of 06 the Troponin Reference Range has changed from 0.0-1.5 ng/ml to 0.0- 1.3 ng/ml due to a change in testing methodology. CKMB 0.7 0.0 - 5.0 ng/mL INTERFACE SYSTEM 04/04/2007 12:0 0 PM CDT Thiago Mota MD CHEMISTRY ORDERABLES Edited Performing Organization Address [facility] Phone Number INTERFACE SYSTEM Refer to clinic/hospital department documented in this encounter Visit Diagnoses Diagnosis Painful respiration- Primary documented in this encounter Additional Health Concerns Infection Onset Date Last Indicated Resolved Time VRE Comment:Urine 10/30/13 Resolved 11/04/2013 11/04/2013 8 10:33 AM COSTUME DRAPER R/O COVID-19 12/25/2019 12/25/2019 12/26/2019 2:46 PM CDT R/O COVID-19 05/09/2020 05/09/202005/09/2020 12:1 7 PM COSTUME DRAPER documented as of this encounter Care Teams Stores Assistant Relationship Specialty Start Date End Date Dara Tavera FNP [address] [place] [phone] PCP - General NURSE PRACTITIONER 10/13/18 documented as of this encounter
--- OUTSIDE RECORDS SUMMARY | 2025-04-29 17:51 | XMS_ITS | Encounter Summary ---
Author Organization [facility] Address [address] [place] [address] Care Team Providers Care Ballistic Technician Name Role Phone Dara Tavera Primary Care Provider Encounter Details Date Type Department Care Team (Late st Contact Info) Description 04/03/2007 Outpatient [facility] [address] [place] [address] AMBULANCE, [facility] Other Chest Pain (Primary Dx) Social History Tobacco Use Types Packs/Day Years Used Date Smoking Tobacco: Never Assessed Comments Unknown Sex and Gender Information Value Date Recorded Sex Assigned at Not on file Legal Sex Female 5:22 AM LOCOMOTIVE CRANE ENGINEER Gender Identity Not on file Sexual Orientation Not on file documented as of this encounter Plan of Treatment Not on file documented as of this encounter Visit Diagnoses Diagnosis Other chest pain- Primary documented in this encounter Additional Health Concerns Infection Onset Date Last Indicated Resolved Time 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
--- OUTSIDE RECORDS SUMMARY | 2025-04-29 17:51 | XMS_ITS | Encounter Summary ---
Author Organization [facility] Address [address] [place] [address] Care Team Providers Care Personnel Generalist Manager Name Role Phone Dara Tavera Primary Care Provider Encounter Details Date Type Department Care Team (Latest Contact Info) Description 02/07/2007 Outpatient Historical [facility] [address] [place] [address] AMBULANCE, [facility] Unspecified Nonpsychotic Mental Disorder (Primary Dx) Social History Tobacco Use Types Packs/Day Years Used Date Smoking Tobacco: Never Assessed Comments Unknown Sex and Gender Information Value Date Recorded Sex Assigned at Not on file Legal Sex Female 5:22 AM HTML WEB DEVELOPER Gender Identity Not on file Sexual Orientation Not on file documented as of this encounter Plan of Treatment Not on file documented as of this encounter Visit Diagnoses Diagnosis Unspecified nonpsychotic mental disorder- Primary documented in this encounter Additional Health Concerns Infection Onset Date Last Indicated Resolved Time VRE Comment:Urine 10/30/13 Resolved 11/04/2013 11/04/2013 8 10:33 AM HTML WEB DEVELOPER R/O COVID-19 12/25/2019 12/25/2019 12/26/2019 2:46 PM CDT R/O COVID-19 05/09/2020 05/09/2020 05/09/2020 12:1 7 PM HTML WEB DEVELOPER documented as of this encounter Care Teams Personnel Generalist Manager Relationship Specialty Start Date End Date Dara Tavera FNP [address] [place] [address] PCP - General NURSE PRACTITIONER 10/13/18 documented as of this encounter
--- OUTSIDE RECORDS SUMMARY | 2025-04-29 17:51 | XMS_ITS | Encounter Summary ---
Author Organization [facility] Address [address] [place] [address] Care Team Providers Care Manager Home Healthcare Name Role Phone Dara Tavrea Primary Care Provider Encounter Details Date Type Department Care Team (Latest Contact Info) Description 09/19/2005 Outpatient Historical [facility] Ambulance [address] [place] [address] AMBULANCE, [facility] Hemorrhage Complicating a Procedure (Primary Dx) Social History Tobacco Use Types Packs/Day Years Used Date Smoking Tobacco: Never Assessed Comments Unknown Sex and Gender Information Value Date Recorded Sex Assigned at Not on file Legal Sex Female 5:22 AM HEADING REPAIRER Gender Identity Not on file Sexual Orientation Not on file documented as of this encounter Plan of Treatment Not on file documented as of this encounter Visit Diagnoses Diagnosis Hemorrhage complicating a procedure- Primary documented in this encounter Additional Health Concerns Infection Onset Date Last Indicated Resolved Time VRE Comment:Urine 10/30/13 Resolved 11/04/2013 11/04/2013 8 10:33 AM HEADING REPAIRER R/O COVID-19 12/25/2019 12/25/2019 12/26/2019 2:46 PM CDT R/O COVID-19 05/09/2020 05/09/2020 05/09/2020 12:1 7 PM HEADING REPAIRER documented as of this encounter Care Teams Manager Home Healthcare Relationship Specialty Start Date End Date Dara Tavera FNP [address] [place] [phone] PCP - General NURSE PRACTITIONER 10/13/18 documented as of this encounter
--- OUTSIDE RECORDS SUMMARY | 2025-04-29 17:51 | XMS_ITS | Encounter Summary ---
Author Organization [facility] Address [address] [place] [address] Care Team Providers Care Hog Room Supervisor Name Role Phone Dara Tavera AMANDEEP Primary Care Provider Encounter Details Date Type Department Care Team (Late st Contact Info) Description 04/04/2007 Outpatient [facility] [address] [place] [address] AMBULANCE, [facility] Unspecified Chest Pain (Primary Dx) Social History Tobacco Use Types Packs/Day Years Used Date Smoking Tobacco: Never Assessed Comments Unknown Sex and Gender Information Value Date Recorded Sex Assigned at Not on file Legal Sex Female 5:22 AM YOUTH LEADER Gender Identity Not on file Sexual Orientation [...] 10/30/13 Resolved 11/04/2013 11/04/2013 8 10:33 AM YOUTH LEADER R/O COVID-19 12/25/2019 12/25/2019 12/26/2019 2:46 PM CDT R/O COVID-19 05/09/2020 05/09/2020 05/09/2020 12:1 7 PM YOUTH LEADER documented as of this encounter Care Teams Hog Room Supervisor Relationship Specialty Start Date End Date Dara Tavera FNP [address] [place] [phone] PCP - General NURSE PRACTITIONER 10/13/18 documented as of this encounter
--- OUTSIDE RECORDS SUMMARY | 2025-04-29 17:51 | XMS_ITS | Encounter Summary ---
Author Organization [facility] Address [address] [place] [address] Care Team Providers Care Fire Extinguisher Charger Name Role Phone Dara Tavera Primary Care Provider Encounter Details Date Type Department Care Team (Late st Contact Info) Description 09/07/2020 Ancillary Orders [facility] [address] [place] [address] Dara Tavera FNP [address] [place] [address] Pain in left foot Social [...] asked 05/05/2019 How often do you attend denominational or restorationism serv ices? Not asked 05/05/2019 Do you belong to any clubs o r organizations such as denominational groups, unions, fraternal or athletic groups, or [...] on file Legal Sex Female 5:22 AM CAUSTIC PLANT WORKER Gender Identity Not on file Sexual [...] union. 3. Osteoarthritis of the tarsometatarsal joints. [id number] Narrative Procedure Note Akira Liu MD - [...] union. 3. Osteoarthritis of the tarsometatarsal joints. [id number] Dara [facility] ORDER[facility] ES Final Result documented in this encounter Visit Diagnoses Diagnosis Pain in left foot Pain in limb Pain in left foot Pain in limb documented in this encounter Care Teams Fire Extinguisher Charger Relationship Specialty Start Date End Date Dara Tavera FNP [address] [place] [phone] PCP - General NURSE PRACTITIONER 10/13/18 documented as of this encounter
--- OUTSIDE RECORDS SUMMARY | 2025-04-29 17:52 | XMS_ITS | Encounter Summary ---
Author Organization [facility] Address [address] [place] [address] Care Team Providers Care Motor Setter Name Role Phone Dara Tavera Primary Care Provider Encounter Details Date Type Department Care Team (Latest Contact Info) Description 12/28/2005 Outpatient Historical [facility] Family Medicine [place] [address] [facility] [address] [place] [address] Faiza Petersen MD NO ADDRESS ON FILE Open Wnd Anterior Abdomen (Primary Dx); Other Postsurgical Status Social History Tobacco Use Types Packs/Day Years Used Date Smoking Tobacco: Never Assessed Comments Unknown Sex and Gender Information Value Date Recorded Sex Assigned at Not on file Legal Sex Female 5:22 AM ALTERATION WORKER Gender Identity Not on file Sexual [...] 10/30/13 Resolved 11/04/2013 11/04/2013 8 10:33 AM ALTERATION WORKER R/O COVID-19 12/25/2019 12/25/2019 12/26/2019 2:46 PM CDT R/O COVID-19 05/09/2020 05/09/2020 05/09/2020 12:1 7 PM ALTERATION WORKER documented as of this encounter Care Teams Motor Setter Relationship Specialty Start Date End Date Dara Tavera FNP [address] [place] [phone] PCP - General NURSE PRACTITIONER 10/13/18 documented as of this encounter
--- OUTSIDE RECORDS SUMMARY | 2025-04-29 17:52 | XMS_ITS | Encounter Summary ---
Author Organization [facility] Address [address] [place] [address] Care Team Providers Care Amusement Machine Mechanic Name Role Phone Dara Tavera Primary Care Provider Encounter Details Date Type Department Care Team (Latest Contact Info) Description 04/07/2006 Outpatient Historical [facility] [address] [place] [address] AMBULANCE, [facility] Other Convulsions (CMS/HCC) (Primary Dx) Social History Tobacco Use Types Packs/Day Years Used Date Smoking Tobacco: Never Assessed Comments Unknown Sex and Gender Information Value Date Recorded Sex Assigned at Not on file Legal Sex Female 5:22 AM LUMBER CHECKER Gender Identity Not on file Sexual Orientation Not on file documented as of this encounter Plan of Treatment Not on file documented as of this encounter Visit Diagnoses Diagnosis Other convulsions- Primary documented in this encounter Additional Health Concerns Infection Onset Date Last Indicated Resolved Time VRE Comment:Urine 10/30/13 Resolved 11/04/2013 11/04/2013 8 10:33 AM LUMBER CHECKER R/O COVID-19 12/25/2019 12/25/2019 12/26/2019 2:46 PM CDT R/O COVID-19 05/09/2020 05/09/2020 05/09/2020 12:1 7 PM LUMBER CHECKER documented as of this encounter Care Teams Amusement Machine Mechanic Relationship Specialty Start Date End Date Dara Tavera FNP [address] [place] [phone] PCP - General NURSE PRACTITIONER 10/13/18 documented as of this encounter
--- OUTSIDE RECORDS SUMMARY | 2025-04-29 17:52 | XMS_ITS | Encounter Summary ---
Author Organization [facility] Address [address] [place] [address] Care Team Providers Care Manager Spring Name Role Phone Dara Tavera Primary Care Provider Encounter Details Date Type Department Care Team (Latest Contact Info) Description 02/04/2007 Outpatient Historical [facility] [address] [place] [address] AMBULANCE, [facility] Cervicalgia (Primary Dx) Social History Tobacco Use Types Packs/Day Years Used Date Smoking Tobacco: Never Assessed Comments Unknown Sex and Gender Information Value Date Recorded Sex Assigned at Not on file Legal Sex Female 5:22 AM HELICOPTER MECHANIC Gender Identity Not on file Sexual Orientation Not on file documented as of this encounter Plan of Treatment Not on file documented as of this encounter Visit Diagnoses Diagnosis Cervicalgia- Primary documented in this encounter Additional Health Concerns Infection Onset Date Last Indicated Resolved Time VRE Comment:Urine 10/30/13 Resolved 11/04/2013 11/04/2013 8 10:33 AM HELICOPTER MECHANIC R/O COVID-19 12/25/2019 12/25/2019 12/26/2019 2:46 PM CDT R/O COVID-19 05/09/2020 05/09/2020 05/09/2020 12:1 7 PM HELICOPTER MECHANIC documented as of this encounter Care Teams Manager Spring Relationship Specialty Start Date End Date Dara Tavera FNP [address] [place] [phone] PCP - General NURSE PRACTITIONER 10/13/18 documented as of this encounter
--- OUTSIDE RECORDS SUMMARY | 2025-04-29 17:52 | XMS_ITS | Encounter Summary ---
Author Organization [facility] Address [address] [place] [address] Care Team Providers Care Biomass Production Manager Name Role Phone Dara Tavera Primary Care Provider [phone] Encounter Details Date Type Department Care Team (Latest Contact Info) Description 08/21/2005 Outpatient Historical [facility] [address] [place] [address] AMBULANCE, [facility] DISRUPT OF EXTERNAL OPERATION WOUND (Primary Dx) Social History Tobacco Use Types Packs/Day Years Used Date Smoking Tobacco: Never Assessed Comments Unknown Sex and Gender Information Value Date Recorded Sex Assigned at Not on file Legal Sex Female 5:22 AM BALLOON DESIGN PRINTER Gender Identity Not on file Sexual Orientation Not on file documented as of this encounter Plan of Treatment Not on file documented as of this encounter Visit Diagnoses Diagnosis Disruption of external operation (surgical) wound- Primary documented in this encounter Additional Health Concerns Infection Onset Date Last Indicated Resolved Time VRE Comment:Urine 10/30/13 Resolved 11/04/2013 11/04/2013 8 10:33 AM BALLOON DESIGN PRINTER R/O COVID-19 12/25/2019 12/25/2019 12/26/2019 2:46 PM CDT R/O COVID-19 05/09/2020 05/09/2020 05/09/2020 12:1 7 PM BALLOON DESIGN PRINTER documented as of this encounter Care Teams Biomass Production Manager Relationship Specialty Start Date End Date Dara Tavera FNP [address] [place] [phone] PCP - General NURSE PRACTITIONER 10/13/18 documented as of this encounter
--- OUTSIDE RECORDS SUMMARY | 2025-04-29 17:52 | XMS_ITS | Encounter Summary ---
Author Organization [facility] Address [address] [place] [address] Care Team Providers Care Brand Marketing Intern Name Role Phone Dara Tavera Primary Care Provider Encounter Details Date Type Department Care Team (Latest Contact Info) Description 11/20/2006 Outpatient Historical [facility] [address] [place] [address] AMBULANCE, [facility] Pain in Joint, Shoulder Region (Primary Dx) Social History Tobacco Use Types Packs/Day Years Used Date Smoking Tobacco: Never Assessed Comments Unknown Sex and Gender Information Value Date Recorded Sex Assigned at Not on file Legal Sex Female 5:22 AM HOT WORKER Gender Identity Not on file Sexual Orientation Not on file documented as of this encounter Plan of Treatment Not on file documented as of this encounter Visit Diagnoses Diagnosis Pain in joint, shoulder region- Primary documented in this encounter Additional Health Concerns Infection Onset Date Last Indicated Resolved Time VRE Comment:Urine 10/30/13 Resolved 11/04/2013 11/04/2013 8 10:33 AM HOT WORKER R/O COVID-19 12/25/2019 12/25/2019 12/26/2019 2:46 PM CDT R/O COVID-19 05/09/2020 05/09/2020 05/09/2020 12:1 7 PM HOT WORKER documented as of this encounter Care Teams Brand Marketing Intern Relationship Specialty Start Date End Date Dara Tavera FNP [address] [place] [phone] PCP - General NURSE PRACTITIONER 10/13/18 documented as of this encounter
--- OUTSIDE RECORDS SUMMARY | 2025-04-29 17:52 | XMS_ITS | Encounter Summary ---
Author Organization [facility] Address [address] [place] [address] Care Team Providers Care Pin Machine Operator Name Role Phone Dara Tavera Primary Care Provider Encounter Details Date Type Department Care Team (Latest Contact Info) Description 12/24/2005 Outpatient Historical [facility] [address] [place] [address] AMBULANCE, [facility] Open Wnd Anterior Abdomen (Primary Dx) Social History Tobacco Use Types Packs/Day Years Used Date Smoking Tobacco: Never Assessed Comments Unknown Sex and Gender Information Value Date Recorded Sex Assigned at Not on file Legal Sex Female 5:22 AM BELT MACHINE OPERATOR Gender Identity Not on file [...] 10/30/13 Resolved 11/04/2013 11/04/2013 8 10:33 AM BELT MACHINE OPERATOR R/O COVID-19 12/25/2019 12/25/2019 12/26/2019 2:46 PM CDT R/O COVID-19 05/09/2020 05/09/2020 05/09/2020 12:1 7 PM BELT MACHINE OPERATOR documented as of this encounter Care Teams Pin Machine Operator Relationship Specialty Start Date End Date Dara Tavera FNP [address] [place] [phone] PCP - General NURSE PRACTITIONER 10/13/18 documented as of this encounter
--- OUTSIDE RECORDS SUMMARY | 2025-04-29 17:52 | XMS_ITS | Encounter Summary ---
Author Organization [facility] Address [address] [place] [address] Care Team Providers Care Acid Supervisor Name Role Phone Dara Tavera Primary Care Provider [phone] Encounter Details Date Type Department Care Team (Latest Contact Info) Description 12/18/2006 Outpatient Historical [facility] [address] [place] [address] AMBULANCE, [facility] Other Chest Pain (Primary Dx) Social History Tobacco Use Types Packs/Day Years Used Date Smoking Tobacco: Never Assessed Comments Unknown Sex and Gender Information Value Date Recorded Sex Assigned at Not on file Legal Sex Female 5:22 AM PERSONAL COUNSELOR Gender Identity Not on file Sexual Orientation Not on file documented as of this encounter Plan of Treatment Not on file documented as of this encounter Visit Diagnoses Diagnosis Other chest pain- Primary documented in this encounter Additional Health Concerns Infection Onset Date Last Indicated Resolved Time VRE Comment:Urine 10/30/13 Resolved 11/04/2013 11/04/2013 8 10:33 AM PERSONAL COUNSELOR R/O COVID-19 12/25/2019 12/25/2019 12/26/2019 2:46 PM CDT R/O COVID-19 05/09/2020 05/09/2020 05/09/2020 12:1 7 PM PERSONAL COUNSELOR documented as of this encounter Care Teams Acid Supervisor Relationship Specialty Start Date End Date Dara Tavera FNP [address] [place] [address] PCP - General NURSE PRACTITIONER 10/13/18 documented as of this encounter
--- OUTSIDE RECORDS SUMMARY | 2025-04-29 17:52 | XMS_ITS | Encounter Summary ---
Author Organization [facility] Address [address] [place] [address] Care Team Providers Care Trolley Wire Installer Name Role Phone Dara Tavera Primary Care Provider Encounter Details Date Type Department Care Team (Latest Contact Info) Description 03/15/2006 Outpatient Historical [facility] Medicine [place] [address] [facility] [address] [place] [address] Faiza Petersen MD NO ADDRESS ON FILE Open Wnd Anterior Abdomen (Primary Dx); Obesity, Unspecified Social History Tobacco Use Types Packs/Day Years Used Date Smoking Tobacco: Never Assessed Comments Unknown Sex and Gender Information Value Date Recorded Sex Assigned at Not on file Legal Sex Female 5:22 AM TREE TRIMMER HELPER Gender Identity Not on file Sexual [...] 10/30/13 Resolved 11/04/2013 11/04/2013 8 10:33 AM TREE TRIMMER HELPER R/O COVID-19 12/25/2019 12/25/2019 12/26/2019 2:46 PM CDT R/O COVID-19 05/09/2020 05/09/2020 05/09/2020 12:1 7 PM TREE TRIMMER HELPER documented as of this encounter Care Teams Trolley Wire Installer Relationship Specialty Start Date End Date Dara Tavera FNP [address] [place] [address] PCP - General NURSE PRACTITIONER 10/13/18 documented as of this encounter
--- OUTSIDE RECORDS SUMMARY | 2025-04-29 17:52 | XMS_ITS | Encounter Summary ---
Author Organization [facility] Address [address] [place] [address] Care Team Providers Care Newsagent Name Role Phone Dara Tavera Primary Care Provider Encounter Details Date Type Department Care Team (Latest Contact Info) Description 02/07/2006 Outpatient Historical [facility] Medicine [place] [address] [facility] [address] [place] [address] Ryan Don NP NO ADDRESS ON FILE Polydipsia (Primary Dx); Nausea Alone; Open Wnd Anterior Abdomen Social History Tobacco Use Types Packs/Day Years Used Date Smoking Tobacco: Never Assessed Comments Unknown Sex and Gender Information Value Date Recorded Sex Assigned at Not on file Legal Sex Female 5:22 AM PUMP AND STILL OPERATOR Gender Identity Not on file Sexual [...] 10/30/13 Resolved 11/04/2013 11/04/2013 8 10:33 AM PUMP AND STILL OPERATOR R/O COVID-19 12/25/2019 12/25/2019 12/26/2019 2:46 PM CDT R/O COVID-19 05/09/2020 05/09/2020 05/09/2020 12:1 7 PM PUMP AND STILL OPERATOR documented as of this encounter Care Teams Newsagent Relationship Specialty Start Date End Date Dara Tavera FNP [address] [place] [address] PCP - General NURSE PRACTITIONER 10/13/18 documented as of this encounter
--- OUTSIDE RECORDS SUMMARY | 2025-04-29 17:52 | XMS_ITS | Encounter Summary ---
Author Organization [facility] Address [address] [place] [address] Care Team Providers Care Water Control Supervisor Name Role Phone Dara Tavera Primary Care Provider [phone] Encounter Details Date Type Department Care Team (Latest Contact Info) Description 07/18/2005 Outpatient Historical [facility] [address] [place] [address] Faiza Petersen MD NO ADDRESS ON FILE PREOP EXAM OTHER UNSPECIFIED (Primary Dx); ESOPHAGEAL REFLUX; CHEST PAIN NEC Social History Tobacco Use Types Packs/Day Years Used Date Smoking Tobacco: Never Assessed Comments Unknown Sex and Gender Information Value Date Recorded Sex Assigned at Not on file Legal Sex Female 5:22 AM MEDICAL STAFF DIRECTOR Gender Identity Not on file Sexual Orientation Not on file documented as of this encounter Plan of Treatment Not on file documented as of this encounter Visit Diagnoses Diagnosis Preoperative examination, unspecified- Primary Esophageal reflux Other chest pain documented in this encounter Additional Health Concerns Infection Onset Date Last Indicated Resolved Time VRE Comment:Urine 10/30/13 Resolved 11/04/2013 11/04/2013 8 10:33 AM MEDICAL STAFF DIRECTOR R/O COVID-19 12/25/2019 12/25/2019 12/26/2019 2:46 PM CDT R/O COVID-19 05/09/2020 05/09/2020 05/09/2020 12:1 7 PM MEDICAL STAFF DIRECTOR documented as of this encounter Care Teams Water Control Supervisor Relationship Specialty Start Date End Date Dara Tavera FNP [address] [place] [address] PCP - General NURSE PRACTITIONER 10/13/18 documented as of this encounter"
--- OUTSIDE RECORDS SUMMARY | 2025-04-29 17:52 | XMS_ITS | Encounter Summary ---
Author Organization [facility] Address [address] [place] [address] Care Team Providers Care Sas Architect Name Role Phone Dara Tavera Primary Care Provider Encounter Details Date Type Department Care Team (Latest Contact Info) Description 03/06/2006 Outpatient Historical [facility] Ambulance [address] [place] [address] AMBULANCE, [facility] Other Convulsions (CMS/HCC) (Primary Dx) Social History Tobacco Use Types Packs/Day Years Used Date Smoking Tobacco: Never Assessed Comments Unknown Sex and Gender Information Value Date Recorded Sex Assigned at Not on file Legal Sex Female 5:22 AM ASSOCIATE DIRECTOR OF DEVELOPMENT Gender Identity Not on file Sexual Orientation Not on file documented as of this encounter Plan of Treatment Not on file documented as of this encounter Visit Diagnoses Diagnosis Other convulsions- Primary documented in this encounter Additional Health Concerns Infection Onset Date Last Indicated Resolved Time VRE Comment:Urine 10/30/13 Resolved 11/04/2013 11/04/2013 8 10:33 AM ASSOCIATE DIRECTOR OF DEVELOPMENT R/O COVID-19 12/25/2019 12/25/2019 12/26/2019 2:46 PM CDT R/O COVID-19 05/09/2020 05/09/2020 05/09/2020 12:1 7 PM ASSOCIATE DIRECTOR OF DEVELOPMENT documented as of this encounter Care Teams Sas Architect Relationship Specialty Start Date End Date Dara Tavera FNP [address] [place] [address] PCP - General NURSE PRACTITIONER 10/13/18 documented as of this encounter
--- OUTSIDE RECORDS SUMMARY | 2025-04-29 17:52 | XMS_ITS | Encounter Summary ---
Author Organization [facility] Address [address] [place] [address] Care Team Providers Care Sort Manager Name Role Phone Dara Tavera AMANDEEP Primary Care Provider Encounter Details Date Type Department Care Team (Late st Contact Info) Description 01/15/2007 Emergency [facility] Emergency Department [address] [place] [address] Raji Reyes MD NO ADDRESS ON FILE Unspecified, Hemorrhage of Gastrointestinal Tract (Primary Dx) Social History Tobacco Use Types Packs/Day Years Used Date Smoking Tobacco: Never Assessed Comments Unknown Sex and Gender Information Value Date Recorded Sex Assigned at Not on file Legal Sex Female 5:22 AM GASOLINE ENGINE INSPECTOR Gender Identity Not on file Sexual [...] during normal , as reported by the mergers and acquisitions banker, are summarized as follows: Gestational Age Expected hCG Values (mIU/ml) 0.2-1 Weeks 5 - 50 1-2 Weeks 50 - 500 2-3 Weeks 100 - 5,000 3-4 Weeks 1,000 - 50,000 5-6 Weeks 10,000 - 100,000 6-8 Weeks 15,000 - 200,000 2-3 Months 10,000 - 100,000 01/15/2007 9:00 AM CDT Raji Reyes MD CHEMISTRY ORDERABLES Edited Performing Organization Address [facility] Phone Number INTERFACE SYSTEM Refer to clinic/hospital department * LIPASE (01/15/2007 9:00 AM CDT) [facility] LIPASE 27 6 - 51 U/L INTERFACE SYSTEM Comment: As of 05 the [facility] has changed testing methods. The new reference range is 6-51 The old referance range was 23-300 01/15/2007 9:00 AM CDT Raji Reyes MD CHEMISTRY ORDERABLES Edited Performing Organization Address [facility] Phone Number INTERFACE SYSTEM Refer to clinic/hospital department * (ABNORMAL) COMPREHENSIVE METABOLIC PANEL (01/15/2007 9:00 AM CDT) [facility] GLOBULIN (CALC) 2.8 2.4 - 3.9 g/dL [...] 10/30/13 Resolved 11/04/2013 11/04/2013 8 10:33 AM GASOLINE ENGINE INSPECTOR R/O COVID-19 12/25/2019 12/25/2019 12/26/2019 2:46 PM CDT R/O COVID-19 05/09/2020 05/09/2020 05/09/2020 12:1 7 PM GASOLINE ENGINE INSPECTOR documented as of this encounter Care Teams Sort Manager Relationship Specialty Start Date End Date Dara Tavera FNP [address] [place] [address] PCP - General NURSE PRACTITIONER 10/13/18 documented as of this encounter
--- OUTSIDE RECORDS SUMMARY | 2025-04-29 17:52 | XMS_ITS | Encounter Summary ---
Author Organization [facility] Address [address] [place] [address] Care Team Providers Care Floral Design Teacher Name Role Phone Dara Tavera Primary Care Provider [phone] Encounter Details Date Type Department Care Team (Latest Contact Info) Description 01/05/2006 Outpatient Historical [facility] Family Medicine [place] [address] [facility] [address] [place] [address] Faiza Petersen MD NO ADDRESS ON FILE Open Wnd Anterior Abdomen (Primary Dx); Abdominal Pain, Unspecified Site Social History Tobacco Use Types Packs/Day Years Used Date Smoking Tobacco: Never Assessed Comments Unknown Sex and Gender Information Value Date Recorded Sex Assigned at Not on file Legal Sex Female 5:22 AM PEARL DIVER Gender Identity Not on file Sexual [...] 10/30/13 Resolved 11/04/2013 11/04/2013 8 10:33 AM PEARL DIVER R/O COVID-19 12/25/2019 12/25/2019 12/26/2019 2:46 PM CDT R/O COVID-19 05/09/2020 05/09/2020 05/09/2020 12:1 7 PM PEARL DIVER documented as of this encounter Care Teams Floral Design Teacher Relationship Specialty Start Date End Date Dara Tavera FNP [address] [place] [address] PCP - General NURSE PRACTITIONER 10/13/18 documented as of this encounter
--- OUTSIDE RECORDS SUMMARY | 2025-04-29 17:52 | XMS_ITS | Encounter Summary ---
Author Organization [facility] Address [address] [place] [address] Care Team Providers Care Rubber Worker Name Role Phone Dara Tavera Primary Care Provider Encounter Details Date Type Department Care Team (Latest Contact Info) Description 01/31/2006 Outpatient Historical [facility] Ambulance [address] [place] [address] AMBULANCE, [facility] Unspecified Nonpsychotic Mental Disorder (Primary Dx) Social History Tobacco Use Types Packs/Day Years Used Date Smoking Tobacco: Never Assessed Comments Unknown Sex and Gender Information Value Date Recorded Sex Assigned at Not on file Legal Sex Female 5:22 AM MULTIMEDIA EDUCATIONAL SPECIALIST Gender Identity Not on file Sexual Orientation Not on file documented as of this encounter Plan of Treatment Not on file documented as of this encounter Visit Diagnoses Diagnosis Unspecified nonpsychotic mental disorder- Primary documented in this encounter Additional Health Concerns Infection Onset Date Last Indicated Resolved Time VRE Comment:Urine 10/30/13 Resolved 11/04/2013 11/04/2013 8 10:33 AM MULTIMEDIA EDUCATIONAL SPECIALIST R/O COVID-19 12/25/2019 12/25/2019 12/26/2019 2:46 PM CDT R/O COVID-19 05/09/2020 05/09/2020 05/09/2020 12:1 7 PM MULTIMEDIA EDUCATIONAL SPECIALIST documented as of this encounter Care Teams Rubber Worker Relationship Specialty Start Date End Date Dara Tavera FNP [address] [place] [phone] PCP - General NURSE PRACTITIONER 10/13/18 documented as of this encounter
--- OUTSIDE RECORDS SUMMARY | 2025-04-29 17:52 | XMS_ITS | Encounter Summary ---
Author Organization [facility] Address [address] [place] [address] Care Team Providers Care Television Camera Operator Name Role Phone Dara Tavera ELECTRICAL PLUMBING SUPERVISOR Primary Care Provider Encounter Details Date [...] on file Legal Sex Female 5:22 AM BENEFITS TECHNICIAN Gender Identity Not on file Sexual [...] By: Lionel Hays M.D. Date Signed: 11/29/[address] [facility] Procedure Note 05/09/2009 Multiplanar imaging of the [...] By: Lionel Hays M.D. Date Signed: 11/29/[address] [facility] Luis Ross MD MR ORDERABLES Final Result [...] 10/30/13 Resolved 11/04/2013 11/04/2013 8 10:33 AM BENEFITS TECHNICIAN R/O COVID-19 12/25/2019 12/25/2019 12/26/2019 2:46 PM CDT R/O COVID-19 05/09/2020 05/09/2020 05/09/2020 12:1 7 PM BENEFITS TECHNICIAN documented as of this encounter Care Teams Television Camera Operator Relationship Specialty Start Date End Date Dara Tavera FNP [address] [place] [phone] PCP - General NURSE PRACTITIONER 4/27/19 documented as of this encounter
--- OUTSIDE RECORDS SUMMARY | 2025-04-29 17:52 | XMS_ITS | Encounter Summary ---
Author Organization [facility] Address [address] [place] [address] Care Team Providers Care Library Services Dean Name Role Phone Dara Tavera Primary Care Provider Encounter Details Date Type Department Care Team (Latest Contact Info) Description 04/12/2006 Outpatient Historical [facility] Ambulance [address] [place] [address] AMBULANCE, [facility] Nausea with Vomiting (Primary Dx) Social History Tobacco Use Types Packs/Day Years Used Date Smoking Tobacco: Never Assessed Comments Unknown Sex and Gender Information Value Date Recorded Sex Assigned at Not on file Legal Sex Female 5:22 AM SOURCING ASSOCIATE Gender Identity Not on file Sexual Orientation Not on file documented as of this encounter Plan of Treatment Not on file documented as of this encounter Visit Diagnoses Diagnosis Nausea with vomiting- Primary documented in this encounter Additional Health Concerns Infection Onset Date Last Indicated Resolved Time VRE Comment:Urine 10/30/13 Resolved 11/04/2013 11/04/2013 8 10:33 AM SOURCING ASSOCIATE R/O COVID-19 12/25/2019 12/25/2019 12/26/2019 2:46 PM CDT R/O COVID-19 05/09/2020 05/09/2020 05/09/2020 12:1 7 PM SOURCING ASSOCIATE documented as of this encounter Care Teams Library Services Dean Relationship Specialty Start Date End Date Dara Tavera FNP [address] [place] [phone] PCP - General NURSE PRACTITIONER 10/13/18 documented as of this encounter
--- OUTSIDE RECORDS SUMMARY | 2025-04-29 17:52 | XMS_ITS | Encounter Summary ---
Author Organization [facility] Address [address] [place] [address] Care Team Providers Care Employment Interviewer Name Role Phone Dara Tavera Primary Care Provider Encounter Details Date Type Department Care Team (Latest Contact Info) Description 03/16/2006 Outpatient Historical [facility] Ambulance [address] [place] [address] AMBULANCE, [facility] Abdominal Pain, Unspecified Site (Primary Dx) Social History Tobacco Use Types Packs/Day Years Used Date Smoking Tobacco: Never Assessed Comments Unknown Sex and Gender Information Value Date Recorded Sex Assigned at Not on file Legal Sex Female 5:22 AM CRM ANALYST Gender Identity Not on file Sexual Orientation Not on file documented as of this encounter Plan of Treatment Not on file documented as of this encounter Visit Diagnoses Diagnosis Abdominal pain, unspecified site- Primary documented in this encounter Additional Health Concerns Infection Onset Date Last Indicated Resolved Time VRE Comment:Urine 10/30/13 Resolved 11/04/2013 11/04/2013 8 10:33 AM CRM ANALYST R/O COVID-19 12/25/2019 12/25/2019 12/26/2019 2:46 PM CDT R/O COVID-19 05/09/2020 05/09/2020 05/09/2020 12:1 7 PM CRM ANALYST documented as of this encounter Care Teams Employment Interviewer Relationship Specialty Start Date End Date Dara Tavera FNP [address] [place] [phone] PCP - General NURSE PRACTITIONER 10/13/18 documented as of this encounter
--- OUTSIDE RECORDS SUMMARY | 2025-04-29 17:52 | XMS_ITS | Encounter Summary ---
Author Organization [facility] Address [address] [place] [address] Care Team Providers Care Leaf Tinner Name Role Phone Dara Tavera Primary Care Provider Encounter Details Date Type Department Care Team (Latest Contact Info) Description 04/13/2006 Outpatient Historical [facility] Ambulance [address] [place] [address] AMBULANCE, [facility] Nausea with Vomiting (Primary Dx) Social History Tobacco Use Types Packs/Day Years Used Date Smoking Tobacco: Never Assessed Comments Unknown Sex and Gender Information Value Date Recorded Sex Assigned at Not on file Legal Sex Female 5:22 AM CINEMA OPERATOR Gender Identity Not on file Sexual Orientation Not on file documented as of this encounter Plan of Treatment Not on file documented as of this encounter Visit Diagnoses Diagnosis Nausea with vomiting- Primary documented in this encounter Additional Health Concerns Infection Onset Date Last Indicated Resolved Time VRE Comment:Urine 10/30/13 Resolved 11/04/2013 11/04/2013 8 10:33 AM CINEMA OPERATOR R/O COVID-19 12/25/2019 12/25/2019 12/26/2019 2:46 PM CDT R/O COVID-19 05/09/2020 05/09/2020 05/09/2020 12:1 7 PM CINEMA OPERATOR documented as of this encounter Care Teams Leaf Tinner Relationship Specialty Start Date End Date Dara Tavera FNP [address] [place] [address] PCP - General NURSE PRACTITIONER 10/13/18 documented as of this encounter
--- OUTSIDE RECORDS SUMMARY | 2025-04-29 17:52 | XMS_ITS | Encounter Summary ---
Author Organization [facility] Address [address] [place] [address] Care Team Providers Care Group Exercise Class Instructor Name Role Phone Dara Tavera Primary Care Provider Encounter Details Date Type Department Care Team (Latest Contact Info) Description 03/15/2006 Outpatient Historical [facility] Ambulance [address] [place] [address] AMBULANCE, [facility] Other Injury of Abdomen (Primary Dx) Social History Tobacco Use Types Packs/Day Years Used Date Smoking Tobacco: Never Assessed Comments Unknown Sex and Gender Information Value Date Recorded Sex Assigned at Not on file Legal Sex Female 5:22 AM TRACK REPAIR LABORER Gender Identity Not on file Sexual Orientation Not on file documented as of this encounter Plan of Treatment Not on file documented as of this encounter Visit Diagnoses Diagnosis Other injury of abdomen- Primary documented in this encounter Additional Health Concerns Infection Onset Date Last Indicated Resolved Time VRE Comment:Urine 10/30/13 Resolved 11/04/2013 11/04/2013 8 10:33 AM TRACK REPAIR LABORER R/O COVID-19 12/25/2019 12/25/2019 12/26/2019 2:46 PM CDT R/O COVID-19 05/09/2020 05/09/2020 05/09/2020 12:1 7 PM TRACK REPAIR LABORER documented as of this encounter Care Teams Group Exercise Class Instructor Relationship Specialty Start Date End Date Dara Tavera FNP [address] [place] [phone] PCP - General NURSE PRACTITIONER 4/27/19 documented as of this encounter
--- OUTSIDE RECORDS SUMMARY | 2025-04-29 17:52 | XMS_ITS | Encounter Summary ---
Author Organization [facility] Address [address] [place] [address] Care Team Providers Care Admissions Supervisor Name Role Phone Dara Tavera Primary Care Provider Encounter Details Date Type Department Care Team (Latest Contact Info) Description 12/12/2006 Outpatient Historical [facility] Ambulance [address] [place] [address] AMBULANCE, [facility] Open Wound of Wrist, without Mention of Complication (Primary Dx) Social History Tobacco Use Types Packs/Day Years Used Date Smoking Tobacco: Never Assessed Comments Unknown Sex and Gender Information Value Date Recorded Sex Assigned at Not on file Legal Sex Female 5:22 AM SUPERVISOR SHUTTLE FITTING Gender Identity Not on file Sexual Orientation Not on file documented as of this encounter Plan of Treatment Not on file documented as of this encounter Visit Diagnoses Diagnosis Open wound of wrist, without mention of complication- Primary documented in this encounter Additional Health Concerns Infection Onset Date Last Indicated Resolved Time VRE Comment:Urine 10/30/13 Resolved 11/04/2013 11/04/2013 8 10:33 AM SUPERVISOR SHUTTLE FITTING R/O COVID-19 12/25/2019 12/25/2019 12/26/2019 2:46 PM CDT R/O COVID-19 05/09/2020 05/09/2020 05/09/2020 12:1 7 PM SUPERVISOR SHUTTLE FITTING documented as of this encounter Care Teams Admissions Supervisor Relationship Specialty Start Date End Date Dara Tavera FNP [address] [place] [phone] PCP - General NURSE PRACTITIONER 10/13/18 documented as of this encounter
--- OUTSIDE RECORDS SUMMARY | 2025-04-29 17:52 | XMS_ITS | Encounter Summary ---
Author Organization [facility] Address [address] [place] [address] Care Team Providers Care Health Diagnostics Teacher Name Role Phone Dara Tavera Primary Care Provider Encounter Details Date Type Department Care Team (Latest Contact Info) Description 11/12/2006 Outpatient Historical [facility] Ambulance [address] [place] [address] AMBULANCE, [facility] Pain in Joint, Shoulder Region (Primary Dx) Social History Tobacco Use Types Packs/Day Years Used Date Smoking Tobacco: Never Assessed Comments Unknown Sex and Gender Information Value Date Recorded Sex Assigned at Not on file Legal Sex Female 5:22 AM LEAD ANDROID DEVELOPER Gender Identity Not on file Sexual Orientation Not on file documented as of this encounter Plan of Treatment Not on file documented as of this encounter Visit Diagnoses Diagnosis Pain in joint, shoulder region- Primary documented in this encounter Additional Health Concerns Infection Onset Date Last Indicated Resolved Time VRE Comment:Urine 10/30/13 Resolved 11/04/2013 11/04/2013 8 10:33 AM LEAD ANDROID DEVELOPER R/O COVID-19 12/25/2019 12/25/2019 12/26/2019 2:46 PM CDT R/O COVID-19 05/09/2020 05/09/2020 05/09/2020 12:1 7 PM LEAD ANDROID DEVELOPER documented as of this encounter Care Teams Health Diagnostics Teacher Relationship Specialty Start Date End Date Dara Tavera FNP [address] [place] [address] PCP - General NURSE PRACTITIONER 10/13/18 documented as of this encounter
--- OUTSIDE RECORDS SUMMARY | 2025-04-29 17:52 | XMS_ITS | Encounter Summary ---
Author Organization [facility] Address [address] [place] [address] Care Team Providers Care Auditing Coder Name Role Phone Dara Tavera Primary Care Provider [phone] Encounter Details Date Type Department Care Team (Late st Contact Info) Description 11/05/2006 Outpatient Historical [facility] Ambulance [address] [place] [address] AMBULANCE, [facility] Social History Tobacco Use Types Packs/Day Years Used Date Smoking Tobacco: Never Assessed Comments Unknown Sex and Gender Information Value Date Recorded Sex Assigned at Not on file Legal Sex Female 5:22 AM FLATWARE MAKER Gender Identity Not on file Sexual Orientation Not on file documented as of this encounter Plan of Treatment Not on file documented as of this encounter Visit Diagnoses Not on filedocumented in this encounter Additional Health Concerns Infection Onset Date Last Indicated Resolved Time VRE Comment:Urine 10/30/13 Resolved 11/04/2013 11/04/2013 8 10:33 AM FLATWARE MAKER R/O COVID-19 12/25/2019 12/25/2019 12/26/2019 2:46 PM CDT R/O COVID-19 05/09/2020 05/09/2020 05/09/2020 12:1 7 PM FLATWARE MAKER documented as of this encounter Care Teams Auditing Coder Relationship Specialty Start Date End Date Dara Tavera FNP [address] [place] [phone] PCP - General NURSE PRACTITIONER 10/13/18 documented as of this encounter
--- OUTSIDE RECORDS SUMMARY | 2025-04-29 17:52 | XMS_ITS | Encounter Summary ---
Author Organization [facility] Address [address] [place] [address] Care Team Providers Care Grade And Center Marker Name Role Phone Dara Tavera Primary Care Provider Encounter Details Date Type Department Care Team (Latest Contact Info) Description 01/05/2006 Outpatient Historical [facility] [address] [place] [address] AMBULANCE, [facility] Abdominal Pain, Unspecified Site (Primary Dx) Social History Tobacco Use Types Packs/Day Years Used Date Smoking Tobacco: Never Assessed Comments Unknown Sex and Gender Information Value Date Recorded Sex Assigned at Not on file Legal Sex Female 5:22 AM PCAT INSTRUCTOR Gender Identity Not on file Sexual Orientation Not on file documented as of this encounter Plan of Treatment Not on file documented as of this encounter Visit Diagnoses Diagnosis Abdominal pain, unspecified site- Primary documented in this encounter Additional Health Concerns Infection Onset Date Last Indicated Resolved Time VRE Comment:Urine 10/30/13 Resolved 11/04/2013 11/04/2013 8 10:33 AM PCAT INSTRUCTOR R/O COVID-19 12/25/2019 12/25/2019 12/26/2019 2:46 PM CDT R/O COVID-19 05/09/2020 05/09/2020 05/09/2020 12:1 7 PM PCAT INSTRUCTOR documented as of this encounter Care Teams Grade And Center Marker Relationship Specialty Start Date End Date Dara Tavera FNP [address] [place] [phone] PCP - General NURSE PRACTITIONER 10/13/18 documented as of this encounter
--- OUTSIDE RECORDS SUMMARY | 2025-04-29 17:52 | XMS_ITS | Encounter Summary ---
Author Organization [facility] Address [address] [place] [address] Care Team Providers Care Clinical Faculty Name Role Phone Dara Tavera Primary Care Provider Encounter Details Date Type Department Care Team (Latest Contact Info) Description 03/05/2006 Outpatient Historical [facility] [address] [place] [address] AMBULANCE, [facility] Other Malaise and Fatigue (Primary Dx) Social History Tobacco Use Types Packs/Day Years Used Date Smoking Tobacco: Never Assessed Comments Unknown Sex and Gender Information Value Date Recorded Sex Assigned at Not on file Legal Sex Female 5:22 AM COMMUNITY REPRESENTATIVE Gender Identity Not on file Sexual Orientation Not on file documented as of this encounter Plan of Treatment Not on file documented as of this encounter Visit Diagnoses Diagnosis Other malaise and fatigue- Primary documented in this encounter Additional Health Concerns Infection Onset Date Last Indicated Resolved Time VRE Comment:Urine 10/30/13 Resolved 11/04/2013 11/04/2013 8 10:33 AM COMMUNITY REPRESENTATIVE R/O COVID-19 12/25/2019 12/25/2019 12/26/2019 2:46 PM CDT R/O COVID-19 05/09/2020 05/09/2020 05/09/2020 12:1 7 PM COMMUNITY REPRESENTATIVE documented as of this encounter Care Teams Clinical Faculty Relationship Specialty Start Date End Date Dara Tavera FNP [address] [place] [phone] PCP - General NURSE PRACTITIONER 10/13/18 documented as of this encounter
--- OUTSIDE RECORDS SUMMARY | 2025-04-29 17:52 | XMS_ITS | Encounter Summary ---
Author Organization [facility] Address [address] [place] [address] Care Team Providers Care Asbestos Handler Name Role Phone Dara Tavera TIPPING MACHINE OPERATOR Primary Care Provider [phone] Reason for Visit * Reason Comments Medication Refill Encounter Details Date Type Department Care Team (Late st Contact Info) Description 07/25/2019 Refill [facility] [address] [place] [address] Danial Farias, HETAL [address] [place] [address] Social History Tobacco Use Types [...] asked 05/05/2019 How often do you attend cheondoism or restorationism serv ices? Not asked 05/05/2019 Do you belong to any clubs o r organizations such as cheondoism groups, unions, fraternal or athletic groups, or [...] on file Legal Sex Female 5:22 AM SHIRT TURNER Gender Identity Not on file Sexual Orientation [...] COVID-19 05/09/2020 05/09/2020 05/09/2020 12:1 7 PM SHIRT TURNER documented as of this encounter Care Teams Asbestos Handler Relationship Specialty Start Date End Date Dara Tavera FNP [address] [place] [phone] PCP - General NURSE PRACTITIONER 10/13/18 documented as of this encounter
--- OUTSIDE RECORDS SUMMARY | 2025-04-29 17:52 | XMS_ITS | Encounter Summary ---
Author Organization [facility] Address [address] [place] [address] Care Team Providers Care Geodetic Surveyor Name Role Phone Dara Tavera AMANDEEP Primary Care Provider Encounter Details Date Type Department Care Team (Latest Contact Info) Description 01/14/2007 Outpatient Historical [facility] [address] [place] [address] AMBULANCE, [facility] Hemorrhage of Rectum and Anus (Primary Dx) Social History Tobacco Use Types Packs/Day Years Used Date Smoking Tobacco: Never Assessed Comments Unknown Sex and Gender Information Value Date Recorded Sex Assigned at Not on file Legal Sex Female 5:22 AM SALES SERVICE ROUTE MANAGER Gender Identity Not on file Sexual [...] Resolved 11/04/2013 11/04/2013 8 10:33 AM SALES SERVICE ROUTE MANAGER R/O COVID-19 12/25/2019 12/25/2019 12/26/2019 2:46 PM CDT R/O COVID-19 05/09/2020 05/09/2020 05/09/2020 12:1 7 PM SALES SERVICE ROUTE MANAGER documented as of this encounter Care Teams Geodetic Surveyor Relationship Specialty Start Date End Date Dara Tavera FNP [address] [place] [phone] PCP - General NURSE PRACTITIONER 10/13/18 documented as of this encounter
--- OUTSIDE RECORDS SUMMARY | 2025-04-29 17:52 | XMS_ITS | Encounter Summary ---
Author Organization [facility] Address [address] [place] [address] Care Team Providers Care Bariatric Coordinator Name Role Phone Dara Tavera Primary Care Provider [phone] Encounter Details Date Type Department Care Team (Latest Contact Info) Description 04/08/2006 Outpatient Historical [facility] [address] [place] [address] AMBULANCE, [facility] Unspecified Epilepsy without Mention of Intractable Epilepsy (CMS/HCC) (Primary Dx) Social History Tobacco Use Types Packs/Day Years Used Date Smoking Tobacco: Never Assessed Comments Unknown Sex and Gender Information Value Date Recorded Sex Assigned at Not on file Legal Sex Female 5:22 AM HEALTH PLAN ADVISOR Gender Identity Not on file Sexual [...] 10/30/13 Resolved 11/04/2013 11/04/2013 8 10:33 AM HEALTH PLAN ADVISOR R/O COVID-19 12/25/2019 12/25/2019 12/26/2019 2:46 PM CDT R/O COVID-19 05/09/2020 05/09/2020 05/09/2020 12:1 7 PM HEALTH PLAN ADVISOR documented as of this encounter Care Teams Bariatric Coordinator Relationship Specialty Start Date End Date Dara Tavera FNP [address] [place] [address] PCP - General NURSE PRACTITIONER 10/13/18 documented as of this encounter
--- OUTSIDE RECORDS SUMMARY | 2025-04-29 17:52 | XMS_ITS | Encounter Summary ---
Author Organization [facility] Address [address] [place] [address] Care Team Providers Care Hat Cutter Name Role Phone Dara Tavera Primary Care Provider [phone] Encounter Details Date Type Department Care Team (Latest Contact Info) Description 08/31/2005 Outpatient Historical [facility] [address] [place] [address] AMBULANCE, [facility] Other Injury of Abdomen (Primary Dx) Social History Tobacco Use Types Packs/Day Years Used Date Smoking Tobacco: Never Assessed Comments Unknown Sex and Gender Information Value Date Recorded Sex Assigned at Not on file Legal Sex Female 5:22 AM METAL MOVER Gender Identity Not on file Sexual Orientation Not on file documented as of this encounter Plan of Treatment Not on file documented as of this encounter Visit Diagnoses Diagnosis Other injury of abdomen- Primary documented in this encounter Additional Health Concerns Infection Onset Date Last Indicated Resolved Time 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
--- OUTSIDE RECORDS SUMMARY | 2025-04-29 17:52 | XMS_ITS | Encounter Summary ---
Author Organization [facility] Address [address] [place] [address] Care Team Providers Care Tube Heater Name Role Phone Dara Tavera Primary Care Provider Encounter Details Date Type Department Care Team (Latest Contact Info) Description 02/22/2006 Outpatient Historical [facility] [address] [place] [address] AMBULANCE, [facility] Cervicalgia (Primary Dx) Social History Tobacco Use Types Packs/Day Years Used Date Smoking Tobacco: Never Assessed Comments Unknown Sex and Gender Information Value Date Recorded Sex Assigned at Not on file Legal Sex Female 5:22 AM COKE CRANE OPERATOR Gender Identity Not on file Sexual Orientation Not on file documented as of this encounter Plan of Treatment Not on file documented as of this encounter Visit Diagnoses Diagnosis Cervicalgia- Primary documented in this encounter Additional Health Concerns Infection Onset Date Last Indicated Resolved Time 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
--- OUTSIDE RECORDS SUMMARY | 2025-04-29 17:52 | XMS_ITS | Encounter Summary ---
Author Organization [facility] Address [address] [place] [address] Care Team Providers Care Manager Apple Name Role Phone Dara Tavera AMANDEEP Primary Care Provider Encounter Details Date Type Department Care Team (Late st Contact Info) Description 01/14/2007 Emergency [facility] Emergency Department [address] [place] [address] Benedicto Rojo MD NO ADDRESS ON FILE Abdominal Pain, Other Specified Site (Primary Dx) Social History Tobacco Use Types Packs/Day Years Used Date Smoking Tobacco: Never Assessed Comments Unknown Sex and Gender Information Value Date Recorded Sex Assigned at Not on file Legal Sex Female 5:22 AM TOBACCO BLENDER Gender Identity Not on file Sexual Orientation [...] MD CHEMISTRY ORDERABLES Edited Performing Organization Address [facility] [[email or web address]] de Phone Number [...] MD HEMATOLOGY ORDERABLES Edited Performing Organization Address [facility] Co de Phone Number INTERFACE SYSTEM Refer to clinic/hospital department documented in this encounter Visit Diagnoses Diagnosis Abdominal pain, other specified site- Primary documented in this encounter Additional Health Concerns Infection Onset Date Last Indicated Resolved Time VRE Comment:Urine 10/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
--- OUTSIDE RECORDS SUMMARY | 2025-04-29 17:52 | XMS_ITS | Encounter Summary ---
Author Organization [facility] Address [address] [place] [address] Care Team Providers Care Kickboxing Instructor Name Role Phone Dara Tavera Primary Care Provider Encounter Details Date Type Department Care Team (Latest Contact Info) Description 04/15/2006 Outpatient Historical [facility] [address] [place] [address] AMBULANCE, [facility] Unspecified Nonpsychotic Mental Disorder (Primary Dx) Social History Tobacco Use Types Packs/Day Years Used Date Smoking Tobacco: Never Assessed Comments Unknown Sex and Gender Information Value Date Recorded Sex Assigned at Not on file Legal Sex Female 5:22 AM UNDERGROUND MINE MACHINERY MECHANIC Gender Identity Not on file Sexual Orientation Not on file documented as of this encounter Plan of Treatment Not on file documented as of this encounter Visit Diagnoses Diagnosis Unspecified nonpsychotic mental disorder- Primary documented in this encounter Additional Health Concerns Infection Onset Date Last Indicated Resolved Time VRE Comment:Urine 10/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
--- NOTE | 2025-04-29 18:22 | W.ED.EXTPRO ---
HPI - Extremity Problem General: Chief complaint: Extremity Injury, Upper Stated complaint: Fell x 2 weeks ago- RT Arm Pain History of Present Illness: 59-year-old female with a history of chronic gastritis, insomnia, tobacco abuse, tar dive dyskinesia, cannabis dependence, restrictive lung disease, borderline personality disorder, schizoaffective disorder, COPD, GERD and chronic anxiety who presents to the emergency room with right shoulder pain. She said she fell about 10 days ago and was seen in [place] and told that nothing was broken. She bought a sling today but is worried something more is wrong. We discussed that we can alec-ray it but she needs to follow with orthopedics for rotator cuff evaluation if pain continues. Related Data Home Medications ?Medication ?Instructions ?Recorded ?Confirmed acetaminophen 500 mg tablet 1,000 mg PO Q6H PRN Pain 07/09/21 04/24/25 pantoprazole 40 mg tablet,delayed 40 mg PO BID 07/27/23 04/24/25 release ondansetron HCl 4 mg tablet 4 mg PO Q8H 01/22/24 04/24/25 prednisolone acetate 1 % eye drp ophthalmic (eye) 05/10/24 04/24/25 drops,suspension dicyclomine 10 mg capsule 10 mg PO BID PRN 05/27/24 04/24/25 sucralfate 1 gram tablet (Carafate) 1 g PO QID 05/27/24 04/24/25 famotidine 20 mg tablet mg PO 09/23/24 04/24/25 lubiprostone 24 mcg capsule mcg PO 09/23/24 04/24/25 Previous Rx's ?Medication ?Instructions ?Recorded nystatin 100,000 unit/gram topical 1 applic topical BID #30 grams 06/16/22 powder SOLE Supports #1 ea 01/01/24 fluticasone propionate 50 1 spray intranasal DAILY PRN nasal 05/10/24 mcg/actuation nasal congestion 30 days #16 grams spray,suspension (Flonase Allergy Relief) Rollator Walker #1 ea 09/06/24 promethazine 25 mg tablet 12.5 - 25 mg (0.5 - 1 x 25 mg) PO 10/05/24 Q6H PRN nausea and vomiting #10 tabs albuterol sulfate 90 mcg/actuation See Rx Instructions .Route 11/22/24 aerosol inhaler .COMPLEX #9 grams cholecalciferol (vitamin D3) 1,250 1,250 mcg PO .once a week 90 days 12/16/24 mcg (50,000 unit) capsule #12 caps albuterol sulfate 2.5 mg/3 mL 2.5 mg (3 mL) inhalation Q8H PRN 03/26/25 (0.083 %) solution for nebulization bronchospasm 10 days #90 mL nebulizer #1 ea 03/26/25 cyclobenzaprine 10 mg tablet 10 mg PO TID PRN muscle spasm #90 04/01/25 tabs lamotrigine 200 mg tablet 200 mg PO DAILY@06 #30 tabs 04/10/25 quetiapine 25 mg tablet See Rx Instructions PO .COMPLEX 04/10/25 anxiety and agitation #150 tabs trazodone 300 mg tablet 300 mg PO .q hs PRN sleep #30 tabs 04/10/25 vortioxetine 20 mg tablet 20 mg PO .q am #30 tabs 04/10/25 vortioxetine 5 mg tablet 5 mg PO DAILY #30 tabs 04/10/25 tizanidine 4 mg tablet 4 mg PO BID PRN muscle spasticity 04/14/25 #60 tabs hydrocodone 5 mg-acetaminophen 325 1 tab PO Q6H PRN pain #20 tabs 04/29/25 mg tablet Allergies Allergy/AdvReac Type Severity Reaction Status Date / Time haloperidol (From Haldol) Allergy Severe unknown Verified 04/24/25 09:22 Penicillins Allergy Severe ALGY-Anaphy Verified 04/24/25 09:22 laxis sulfamethoxazole (From Allergy Severe ALGY-Hives Verified 04/24/25 09:22 Bactrim) Tetracyclines Allergy Severe ALGY-Hives Verified 04/24/25 09:22 gabapentin (From Neurontin) Allergy Intermediate ADR-Halluci Verified 04/24/25 09:22 nating ketorolac (From Toradol) Allergy Intermediate ALGY-Rash Verified 04/24/25 09:22 lithium Allergy Intermediate ADR-Halluci Verified 04/24/25 09:22 nating fentanyl Allergy Mild rash Verified 04/24/25 09:22 adhesive tape Allergy Rash Verified 04/24/25 09:22 codeine Allergy GI Verified 04/24/25 09:22 duloxetine (From Cymbalta) Allergy ALGY-Rash Verified 04/24/25 09:22 fluoxetine Allergy ADR-Migrain Verified 04/24/25 09:22 e metoclopramide (From Reglan) Allergy ADR-Shakine Verified 04/24/25 09:22 ss nitroglycerin Allergy ADV-Weaknes Verified 04/24/25 09:22 s tramadol Allergy Unknown Verified 04/24/25 09:22 trimethoprim (From Bactrim) Allergy ALGY-Hives Verified 04/24/25 09:22 ziprasidone (From Geodon) AdvReac Severe ADR-Halluci Verified 04/24/25 09:22 nating risperidone (From Risperdal) AdvReac ADR-Halluci Verified 04/24/25 09:22 nating Review of Systems Narrative: Constitutional symptoms: Negative except as documented in HPI. Skin symptoms: Negative except as documented in HPI. Eye symptoms: Negative except as documented in HPI. ENMT symptoms: Negative except as documented in HPI. Respiratory symptoms: Negative except as documented in HPI. Cardiovascular symptoms: Negative except as documented in HPI. Gastrointestinal symptoms: Negative except as documented in HPI. Genitourinary symptoms: Negative except as documented in HPI. Musculoskeletal symptoms: Negative except as documented in HPI. Neurologic symptoms: Negative except as documented in HPI. Psychiatric symptoms: Negative except as documented in HPI. Endocrine symptoms: Negative except as documented in HPI. PFSH ED PFSH: Medical History (Updated 04/29/25 @ 18:32 by April Gee MD) Chronic gastritis without bleeding Insomnia Tobacco use disorder Opioid dependence, uncomplicated Cannabis dependence, uncomplicated Psychiatric care Tardive dyskinesia Esophageal stricture Cystitis cystica Restrictive lung disease Chronic back pain greater than 3 months duration Borderline personality disorder Schizoaffective disorder, bipolar type Urgency incontinence Neurogenic bladder Dysphagia COPD (chronic obstructive pulmonary disease) GERD without esophagitis Foreign body in bladder Bladder stone Chronic anxiety Surgical History H/O bladder repair surgery MESH REPAIR H/O esophagogastroduodenoscopy (09/21/20) H/O colonoscopy with polypectomy History of foot surgery sx in 2009. Screws placed by Dr. Don. S/P bronchoscopy with biopsy History of ureter stent History of breast biopsy Hx of cholecystectomy H/O: hysterectomy History of appendectomy Family History Mother No problems noted. Father No problems noted. Other Asthma Cancer Diabetes Heart disease Social History Smoking and tobacco/nicotine status: never used tobacco/nicotine Quit status (tobacco/nicotine): considering quitting Second hand smoke exposure: Yes Alcohol intake: never Substance/Drug Use: former Lives independently: Yes Household members: spouse Marital status: Number of children: 3 Current occupational status: disabled Do you think of yourself as: Straight/Heterosexual Current gender identity: Female Physical Exam Narrative: EXAM NARRATIVE: General: Alert, no acute distress. Skin: warm and dry Head: Normocephalic Neck: Trachea midline Eye: Extraocular movements are intact. Ears, nose, mouth and throat: Oral mucosa moist Respiratory: Respirations are non-labored Musculoskeletal: Normal ROM Gastrointestinal: Abdomen does not appear distended Neurological: Alert and oriented, No focal neurological deficit observed. Psychiatric: Cooperative, appropriate mood & affect. Course Vital Signs: Vital signs: Vital Signs Temperature 97.6 F 04/29/25 17:46 Pulse Rate 73 04/29/25 17:46 Respiratory Rate 18 04/29/25 17:46 Blood Pressure 130/71 04/29/25 17:46 Pulse Oximetry 97 04/29/25 17:46 Oxygen Delivery Me thod Room Air 04/29/25 17:46 MDM - Extremity (Nontraumatic) Medical Decision Making Medical decision making: Patient's reason for coming to the emergency room: Continued shoulder pain after a fall Social determinants: Patient is disabled I reviewed the patient's medical record. 59-year-old female with a history of chronic gastritis, insomnia, tobacco abuse, tar dive dyskinesia, cannabis dependence, restrictive lung disease, borderline personality disorder, schizoaffective disorder, COPD, GERD and chronic anxiety I reviewed the patient's current home meds Patient had 2 separate prescriptions earlier in the year for oxycodone and then hydrocodone for acute pain pain complaints. She is not on chronic pain therapy. Alternate historians: None Differential diagnosis including but not limited to and based on the above HPI, review of systems and physical exam: In this patient with a musculoskeletal extremity traumatic injury and x-ray is being ordered to rule out fractures and dislocations. Orders placed to evaluate differential diagnosis based on the above differential, HPI and physical exam X-ray of the left shoulder: No acute fractures. This was reviewed and interpreted by myself the emergency room physician. I also reviewed the radiology report. Lab Review: Laboratory results were reviewed and interpreted by myself the emergency room physician. No lab work indicated today. Assessment of risk: Level of risk: Moderate risk. Multiple comorbidities. Hospitalization considerations: No consideration for admission. Reexamination: Patient remained stable. No increased work of breathing. No altered mental status. No focal motor deficits. Assessment and plan: Shoulder injury ?1 [place] in the emergency room. - Discharged home - Discussed plan with patient. Answered any questions. - Evaluation and treatment of this problem were appropriate in the emergency setting. Lab Data Radiology Impressions Shoulder X-Ray 04/29/25 17:51 IMPRESSION: No acute findings. All radiology interpretation(s) finalized by discharge Discharge Plan Discharge Patient Disposition: Home Clinical Impression: Right shoulder injury Condition: Stable Prescriptions: New hydrocodone-acetaminophen 5-325 mg tablet 1 tab PO Q6H PRN (Reason: pain) Qty: 20 0RF No Action pantoprazole 40 mg tablet,delayed release (DR/EC) 40 mg PO BID (DME) SOLE Supports See Rx Instructions .Route .MEDSUPPLY Qty: 1 0RF Rx Instructions: As directed PRE-Auth prednisolone acetate 1 % drops,suspension ophthalmic (eye) fluticasone propionate [Flonase Allergy Relief] 50 mcg/actuation spray,suspension 1 spray intranasal DAILY PRN (Reason: nasal congestion) 30 Days Qty: 16 2RF Rx Instructions: administer into each nostril dicyclomine 10 mg capsule 10 mg PO BID PRN famotidine 20 mg tablet PO lubiprostone 24 mcg capsule PO tizanidine 4 mg tablet 4 mg PO BID PRN (Reason: muscle spasticity) Qty: 60 0RF albuterol sulfate 2.5 mg /3 mL (0.083 %) solution for nebulization 2.5 mg inhalation Q8H PRN (Reason: bronchospasm) 10 Days Qty: 90 0RF (DME) nebulizer See Rx Instructions .Route .MEDSUPPLY Qty: 1 0RF Rx Instructions: daily PRN ondansetron HCl 4 mg tablet 4 mg PO Q8H sucralfate [Carafate] 1 gram tablet 1 g PO QID lamotrigine 200 mg tablet 200 mg PO DAILY@06 Qty: 30 2RF Rx Instructions: Take one tablet by mouth every morning quetiapine 25 mg tablet See Rx Instructions PO .COMPLEX Qty: 150 2RF Rx Instructions: Take 1 tablet every AM, and 2 at bedtime; may take 1 additional tablet twice during the daytime, if needed for anxiety and agitation vortioxetine 20 mg tablet 20 mg PO .q am Qty: 30 2RF Rx Instructions: Take one tablet once daily vortioxetine 5 mg tablet 5 mg PO DAILY Qty: 30 2RF Rx Instructions: Take one tablet daily with the 20 mg dose trazodone 300 mg tablet 300 mg PO .q hs PRN (Reason: sleep) Qty: 30 2RF Rx Instructions: Take one tablet daily at bedtime, if needed for sleep nystatin 100,000 unit/gram powder 1 applic topical BID Qty: 30 0RF Rx Instructions: apply locally to B/L groin folds (DME) Rollator Walker See Rx Instructions .Route .MEDSUPPLY Qty: 1 0RF Rx Instructions: As directed HOME: Length of need 4 months albuterol sulfate 90 mcg/actuation HFA aerosol inhaler See Rx Instructions .ROUTE .COMPLEX Qty: 9 0RF Dose Instruction: INHALE 2 PUFFS BY MOUTH EVERY 6 HOURS NEEDED FOR SHORTNESS OF BREATH OR WHEEZING Rx Instructions: INHALE 2 PUFFS BY MOUTH EVERY 6 HOURS NEEDED FOR SHORTNESS OF BREATH OR WHEEZING cholecalciferol (vitamin D3) 1,250 mcg (50,000 unit) capsule 1,250 mcg PO .once a week 90 Days Qty: 12 0RF cyclobenzaprine 10 mg tablet 10 mg PO TID PRN (Reason: muscle spasm) Qty: 90 0RF acetaminophen 500 mg Tablet 1,000 mg PO Q6H PRN (Reason: Pain) promethazine 25 mg tablet 12.5 - 25 mg PO Q6H PRN (Reason: nausea and vomiting) Qty: 10 0RF Rx Instructions: 4 doses during day; last dose no later than 4 hr before bedtime Discharge Orders: Discharge ED (Routine); Ordered 04/29/25 Ordered By: April Gee Referrals: Oniel Baxter MD [Physician, Orthopedics] - 4-7 days Referral Note: Please call for follow-up appointment Dara Tavera FNP [Primary Care Provider, Family Practice] Discharge Diet: Usual diet Discharge Activity: Increase activity as tolerated Patient Instructions: Shoulder Pain (ED), Opioid Safety, Pain Management, Patient Portal & [place] Instructions Activity Restrictions/Additional Instructions: Thank you for choosing [facility] for your healthcare needs today. You have been screened and evaluated and felt safe for discharge. Health conditions do change or evolve sometimes and as such it is important that you follow up with your Primary Doctor to be re checked, 3-5 days is a general good time frame for follow up. You are always welcome to return to the ED for re assessment if your symptoms are worsening or you have new concerns Print Language: Salvadorean Coding Level of Care Code ED Paper Products Supervisor for Shellie Guallpa
[2025-04-29] MEDS: HYDROcodone-acetaminophen 10-325 mg Tablet 1 TAB PO (18:45)
== END 2025-04-29 18:46 | disposition home or self-care (01) ==
PROVIDERS: Emergency Provider Emergency Medicine; PCP Registered Nurse
DX: S49.91XA Unspecified injury of right shoulder and upper arm, initial encounter (principal); J44.9 Chronic obstructive pulmonary disease, unspecified; W19.XXXA Unspecified fall, initial encounter
CPT/HCPCS: 73030; 99283; J9999

== ENCOUNTER 2025-05-01 14:29 | Emergency (ER) | payer MEDICARE, MEDICAID, SELFPAY ==
[2025-05-01 14:29] VITALS: BP 150/115; PULSE 95; RESP 25; TEMP 36.5; O2SAT 96; BMI 29.2
--- NOTE | 2025-05-01 14:30 | XR_ITS ---
WS: [id number] Exam: XR shoulder RT min 2V* [id number] Date/Time of Exam: 05/01/2025 2:30 PM Reason For Exam: shoulder pain DLP: No acute fracture. Mild DJD at the AC joint. Normal soft tissues. No change since 04/29/2025. XR/XR shoulder RT min 2V* [id number] IMPRESSION: 1. Mild AC joint DJD.
--- NOTE | 2025-05-01 14:33 | W.ED.EXTPRO ---
HPI - Extremity Problem General: Chief complaint: Extremity Injury, Upper Stated complaint: right shoulder pain Time Seen by Provider: 05/01/25 14:30 Source: patient and EMS Mode of arrival: EMS Limitations: no limitations History of Present Illness: 59-year-old female states that she had fell 2 weeks ago while hanging curtains landed on her right shoulder states been having severe right shoulder pain since then she was seen her Monday was placed in a sling has an appoint with orthopedist on next week states that her pain had worsened today rates it a 9 out of 10 she does have hydrocodone for pain at home. Denies any new injuries is worse with movement palpation. Related Data Home Medications ?Medication ?Instructions ?Recorded ?Confirmed acetaminophen 500 mg tablet 1,000 mg PO Q6H PRN Pain 07/09/21 04/24/25 pantoprazole 40 mg tablet,delayed 40 mg PO BID 07/27/23 04/24/25 release ondansetron HCl 4 mg tablet 4 mg PO Q8H 01/22/24 04/24/25 prednisolone acetate 1 % eye drp ophthalmic (eye) 05/10/24 04/24/25 drops,suspension dicyclomine 10 mg capsule 10 mg PO BID PRN 05/27/24 04/24/25 sucralfate 1 gram tablet (Carafate) 1 g PO QID 05/27/24 04/24/25 famotidine 20 mg tablet mg PO 09/23/24 04/24/25 lubiprostone 24 mcg capsule mcg PO 09/23/24 04/24/25 Previous Rx's ?Medication ?Instructions ?Recorded nystatin 100,000 unit/gram topical 1 applic topical BID #30 grams 06/16/22 powder SOLE Supports #1 ea 01/01/24 fluticasone propionate 50 1 spray intranasal DAILY PRN nasal 05/10/24 mcg/actuation nasal congestion 30 days #16 grams spray,suspension (Flonase Allergy Relief) Rollator Walker #1 ea 09/06/24 promethazine 25 mg tablet 12.5 - 25 mg (0.5 - 1 x 25 mg) PO 10/05/24 Q6H PRN nausea and vomiting #10 tabs albuterol sulfate 90 mcg/actuation See Rx Instructions .Route 11/22/24 aerosol inhaler .COMPLEX #9 grams cholecalciferol (vitamin D3) 1,250 1,250 mcg PO .once a week 90 days 12/16/24 mcg (50,000 unit) capsule #12 caps albuterol sulfate 2.5 mg/3 mL 2.5 mg (3 mL) inhalation Q8H PRN 03/26/25 (0.083 %) solution for nebulization bronchospasm 10 days #90 mL nebulizer #1 ea 03/26/25 cyclobenzaprine 10 mg tablet 10 mg PO TID PRN muscle spasm #90 04/01/25 tabs lamotrigine 200 mg tablet 200 mg PO DAILY@06 #30 tabs 04/10/25 quetiapine 25 mg tablet See Rx Instructions PO .COMPLEX 04/10/25 anxiety and agitation #150 tabs trazodone 300 mg tablet 300 mg PO .q hs PRN sleep #30 tabs 04/10/25 vortioxetine 20 mg tablet 20 mg PO .q am #30 tabs 04/10/25 vortioxetine 5 mg tablet 5 mg PO DAILY #30 tabs 04/10/25 tizanidine 4 mg tablet 4 mg PO BID PRN muscle spasticity 04/14/25 #60 tabs hydrocodone 5 mg-acetaminophen 325 1 tab PO Q6H PRN pain #20 tabs 04/29/25 mg tablet methocarbamol 750 mg tablet 750 mg PO Q6H PRN spasms #20 tabs 05/01/25 Allergies Allergy/AdvReac Type Severity Reaction Status Date / Time haloperidol (From Haldol) Allergy Severe unknown Verified 04/24/25 09:22 Penicillins Allergy Severe ALGY-Anaphy Verified 04/24/25 09:22 laxis sulfamethoxazole (From Allergy Severe ALGY-Hives Verified 04/24/25 09:22 Bactrim) Tetracyclines Allergy Severe ALGY-Hives Verified 04/24/25 09:22 gabapentin (From Neurontin) Allergy Intermediate ADR-Halluci Verified 04/24/25 09:22 nating ketorolac (From Toradol) Allergy Intermediate ALGY-Rash Verified 04/24/25 09:22 lithium Allergy Intermediate ADR-Halluci Verified 04/24/25 09:22 nating fentanyl Allergy Mild rash Verified 04/24/25 09:22 adhesive tape Allergy Rash Verified 04/24/25 09:22 codeine Allergy GI Verified 04/24/25 09:22 duloxetine (From Cymbalta) Allergy ALGY-Rash Verified 04/24/25 09:22 fluoxetine Allergy ADR-Migrain Verified 04/24/25 09:22 e metoclopramide (From Reglan) Allergy ADR-Shakine Verified 04/24/25 09:22 ss nitroglycerin Allergy ADV-Weaknes Verified 04/24/25 09:22 s tramadol Allergy Unknown Verified 04/24/25 09:22 trimethoprim (From Bactrim) Allergy ALGY-Hives Verified 04/24/25 09:22 ziprasidone (From Geodon) AdvReac Severe ADR-Halluci Verified 04/24/25 09:22 nating risperidone (From Risperdal) AdvReac ADR-Halluci Verified 04/24/25 09:22 nating Review of Systems Musc: Reports: extremity pain PFSH ED PFSH: Medical History Chronic gastritis without bleeding Insomnia Tobacco use disorder Opioid dependence, uncomplicated Cannabis dependence, uncomplicated Psychiatric care Tardive dyskinesia Esophageal stricture Cystitis cystica Restrictive lung disease Chronic back pain greater than 3 months duration Borderline personality disorder Schizoaffective disorder, bipolar type Urgency incontinence Neurogenic bladder Dysphagia COPD (chronic obstructive pulmonary disease) GERD without esophagitis Foreign body in bladder Bladder stone Chronic anxiety Surgical History H/O bladder repair surgery MESH REPAIR H/O esophagogastroduodenoscopy (09/21/20) H/O colonoscopy with polypectomy History of foot surgery sx in 2009. Screws placed by Dr. Don. S/P bronchoscopy with biopsy History of ureter stent History of breast biopsy Hx of cholecystectomy H/O: hysterectomy History of appendectomy Family History Mother No problems noted. Father No problems noted. Other Asthma Cancer Diabetes Heart disease Social History Smoking and tobacco/nicotine status: never used tobacco/nicotine Quit status (tobacco/nicotine): considering quitting Second hand smoke exposure: Yes Alcohol intake: never Substance/Drug Use: former Lives independently: Yes Household members: spouse Marital status: Number of children: 3 Current occupational status: disabled Do you think of yourself as: Straight/Heterosexual Current gender identity: Female Physical Exam Const: COMMON NORMALS: no acute distress, patient oriented x3 and healthy appearing HENMT: COMMON NORMALS: normocephalic and atraumatic HEAD & SCALP: normocephalic and atraumatic Neck/C-Spine: COMMON NORMALS: full ROM and supple Chest: COMMONS NORMALS: normal inspection of the chest Resp: COMMON NORMALS: normal respiratory effort Cardio: COMMON NORMALS: regular rate RATE: regular rate Extremity: NARRATIVE EXTREMITY EXAM: Tenderness over right shoulder distal pulse sensation intact no obvious deformity Neuro: COMMON NORMALS: patient oriented x3, moves all extremities and no focal motor deficits Psych: COMMON NORMALS: mental status grossly normal, Normal thought process present and cooperative THOUGHT PROCESS: Normal thought process present Skin: COMMON NORMALS: no rashes or lesions noted and no wounds GENERAL SKIN EXAM: no rashes or lesions noted Course Vital Signs: Vital signs: Vital Signs Temperature 97.7 F 05/01/25 14:29 Pulse Rate 95 05/01/25 14:29 Respiratory Rate 18 05/01/25 14:36 Blood Pressure 150/115 05/01/25 14:29 Pulse Oximetry 96 05/01/25 14:29 Oxygen Delivery Me thod Room Air 05/01/25 14:29 MDM - Extremity (Nontraumatic) Medical Decision Making Patient presents with right shoulder pain since a fall 2 weeks ago x-ray here shows no fracture distal pulse sensation intact did give her 1 dose of IM morphine and Valium for muscle spasms she feels improved she stable for discharge follow-up with orthopedics as scheduled next week. Medical Records I reviewed the patient's medical records. XR interpretation done by ED provider, pending radiology final review ED provider radiology interpretation(s): X-ray right shoulder no acute abnormalities Discharge Plan Discharge Patient Disposition: Home Clinical Impression: Right shoulder injury Qualifiers: Encounter type: subsequent encounter Qualified Code(s): S49.91XD - Unspecified injury of right shoulder and upper arm, subsequent encounter Condition: Stable Prescriptions: New methocarbamol 750 mg tablet 750 mg PO Q6H PRN (Reason: spasms) Qty: 20 0RF No Action pantoprazole 40 mg tablet,delayed release (DR/EC) 40 mg PO BID (DME) SOLE Supports See Rx Instructions .Route .MEDSUPPLY Qty: 1 0RF Rx Instructions: As directed PRE-Auth prednisolone acetate 1 % drops,suspension ophthalmic (eye) fluticasone propionate [Flonase Allergy Relief] 50 mcg/actuation spray,suspension 1 spray intranasal DAILY PRN (Reason: nasal congestion) 30 Days Qty: 16 2RF Rx Instructions: administer into each nostril dicyclomine 10 mg capsule 10 mg PO BID PRN famotidine 20 mg tablet PO lubiprostone 24 mcg capsule PO tizanidine 4 mg tablet 4 mg PO BID PRN (Reason: muscle spasticity) Qty: 60 0RF albuterol sulfate 2.5 mg /3 mL (0.083 %) solution for nebulization 2.5 mg inhalation Q8H PRN (Reason: bronchospasm) 10 Days Qty: 90 0RF ([facility] [place]) nebulizer See Rx Instructions .Route .MEDSUPPLY Qty: 1 0RF Rx Instructions: daily PRN ondansetron HCl 4 mg tablet 4 mg PO Q8H sucralfate [Carafate] 1 gram tablet 1 g PO QID lamotrigine 200 mg tablet 200 mg PO DAILY@06 Qty: 30 2RF Rx Instructions: Take one tablet by mouth every morning quetiapine 25 mg tablet See Rx Instructions PO .COMPLEX Qty: 150 2RF Rx Instructions: Take 1 tablet every AM, and 2 at bedtime; may take 1 additional tablet twice during the daytime, if needed for anxiety and agitation vortioxetine 20 mg tablet 20 mg PO .q am Qty: 30 2RF Rx Instructions: Take one tablet once daily vortioxetine 5 mg tablet 5 mg PO DAILY Qty: 30 2RF Rx Instructions: Take one tablet daily with the 20 mg dose trazodone 300 mg tablet 300 mg PO .q hs PRN (Reason: sleep) Qty: 30 2RF Rx Instructions: Take one tablet daily at bedtime, if needed for sleep nystatin 100,000 unit/gram powder 1 applic topical BID Qty: 30 0RF Rx Instructions: apply locally to B/L groin folds (DME) Rollator Walker See Rx Instructions .Route .MEDSUPPLY Qty: 1 0RF Rx Instructions: As directed HOME: Length of need 4 months albuterol sulfate 90 mcg/actuation HFA aerosol inhaler See Rx Instructions .ROUTE .COMPLEX Qty: 9 0RF Dose Instruction: INHALE 2 PUFFS BY MOUTH EVERY 6 HOURS NEEDED FOR SHORTNESS OF BREATH OR WHEEZING Rx Instructions: INHALE 2 PUFFS BY MOUTH EVERY 6 HOURS NEEDED FOR SHORTNESS OF BREATH OR WHEEZING cholecalciferol (vitamin D3) 1,250 mcg (50,000 unit) capsule 1,250 mcg PO .once a week 90 Days Qty: 12 0RF cyclobenzaprine 10 mg tablet 10 mg PO TID PRN (Reason: muscle spasm) Qty: 90 0RF acetaminophen 500 mg Tablet 1,000 mg PO Q6H PRN (Reason: Pain) promethazine 25 mg tablet 12.5 - 25 mg PO Q6H PRN (Reason: nausea and vomiting) Qty: 10 0RF Rx Instructions: 4 doses during day; last dose no later than 4 hr before bedtime hydrocodone-acetaminophen 5-325 mg tablet 1 tab PO Q6H PRN (Reason: pain) Qty: 20 0RF Discharge Orders: Discharge ED (Routine); Ordered 05/01/25 Ordered By: Damien Urbina Referrals: Dara Tavera FNP [Primary Care Provider, Family Practice] Discharge Diet: Advance as tolerated Discharge Activity: Resume usual activity Patient Instructions: Shoulder Pain (ED) Print Language: Setswana Coding Level of Care Code ED Geographic Information Systems Manager for Shellie Guallpa
--- OUTSIDE RECORDS SUMMARY | 2025-05-01 14:35 | XMS_ITS | Clinical Summary ---
Author Organization [facility] Address [address] [place] [address] Care Team Providers Care [employer] Dean Name Role Phone Sally Dong MD Primary Care Provider [phone] Allergies Active Allergy Reactions Criticality Noted Date Comments Adhesive Rash Low 02/12/2009 Codeine Nausea and Vomiting Low 02/12/2009 Duloxetine Other (See Comments) 02/24/2015 Fentanyl Hives High 11/07/2019 Fluoxetine Unknown 10/20/2018 Gabapentin Unknown,Hallucination Low 02/12/2009 Haloperidol Unknown 01/04/2022 Tardive dyskinesia Ketorolac Tromethamine Other (See Comments) Low Adverse drug reaction [place] Unknown 02/12/2009 Other reaction(s): shakey Metoclopramide Hcl [...] for Nausea/Emesis. Active naloxone (NARCAN) 4 mg/spray [facility], Non-Aerosol EMERGENCY USE ONLY: Administer 1 spray [...] Hematochezia 07/07/2009 10/26/2012 Personal history of MRSA (sc thicillin resistant Staphylococcus aureus) 06/27/2009 018 Overview (10/14/2020): Under the arm abscess ~ 2015 Fever and chills 02/12/2009 10/26/2012 Hypoxemia 02/12/2009 04/06/2014 Encounters Date Type Department Care Team Description 04/20/2025 5:25 AM DEMO SPECIALIST - 04/20/2025 11:59 PM DEMO SPECIALIST Hospital Encounter [facility] [place] [address] [facility] [address] [place] [address] Ambulance, [facility] Discharge Disposition: [facility] 04/19/2025 8:27 PM CDT - 04/19/2025 9:59 PM CDT Emergency [facility] Emergency Medicine [address] [facility] [address] [place] [address] Tommy Matthews MD Sprain of right shoulder, unspecified shoulder sprain type, initial encounter (Primary Dx) Discharge Disposition: Home or Self Care 04/19/2025 Travel 04/10/2025 1:07 PM CDT - 04/10/2025 11:59 PM CDT Hospital Encounter [facility] [address] [facility] [address] [place] [address] AyseDara, DBA DEVELOPER Discharge Disposition: Home or Self Care 04/10/2025 Orders Only [facility] Admitting [address] [facility] [address] [place] [address] Ayse, Dara, DBA DEVELOPER Low back pain with sciatica, sciatica laterality unspecified, unspecified back pain laterality, unspecified chronicity (Primary Dx) 04/07/2025 10:00 PM CDT - 04/08/2025 12:56 AM CDT Emergency [facility] Emergency Medicine [address] [place] [address] Tommy Matthews MD Right flank pain (Primary Dx) Discharge Disposition: Home or Self Care 04/07/2025 Travel 03/23/2025 12:30 AM CDT - 03/23/2025 11:59 PM CDT Hospital Encounter [facility] [address] [place] [address] Ambulance, [facility] Discharge Disposition: [facility] 03/18/2025 8:36 AM CDT - 03/18/2025 10:03 AM CDT Emergency [facility] Emergency Medicine [address] [place] [address], [place] [address] Neck pain (Primary Dx) Discharge Disposition: Home or Self Care 03/08/2025 5:56 PM CDT - 03/08/2025 9:25 PM CDT Emergency [facility] Emergency Medicine [address] [place] [address], [place] [address] Anand Bower DO Flank pain (Primary Dx) Discharge Disposition: Home or Self Care 03/08/2025 Travel 03/02/2025 1:05 PM CDT - 03/02/2025 11:59 PM CDT Hospital Encounter [facility] [address] [place] [address] Ambulance, [facility] Discharge Disposition: [facility] 02/20/2025 8:40 PM CDT - 02/20/2025 10:04 PM CDT Emergency [facility] Emergency Medicine [address] [facility] [address] [place] [address] Tommy Matthews MD Chronic neck pain (Primary Dx) Discharge Disposition: Home or Self Care 02/20/2025 Travel 02/15/2025 4:28 PM CDT - 02/15/2025 5:10 PM CDT Emergency [facility] Medicine [address] [place] [address] Neck muscle spasm (Primary Dx) Discharge Disposition: Home or Self Care 02/11/2025 10:49 AM CDT - 02/11/2025 11:59 PM CDT Hospital Encounter [facility] [address] [place] [address] Dara Tavera FNP Discharge Disposition: Home or Self Care 02/11/2025 Orders Only [facility] Admitting [address] [place] [address] Dara Tavera FNP Cervicalgia (Primary Dx) 02/09/2025 9:24 AM CDT - 02/09/2025 10:00 AM CDT Emergency [facility] [address] [place] [address] Tommy Mattehws MD Cervicalgia (Primary Dx) Discharge Disposition: Home or Self Care 02/09/2025 - 02/09/2025 11:59 PM CDT Hospital Encounter [facility] [address] [facility] [address] [place] [address] Ambulance, [facility] Discharge Disposition: [facility] 02/09/2025 Travel 02/01/2025 5:38 PM CDT - 02/01/2025 7:27 PM CDT Emergency [facility] Emergency Medicine [address] [facility] [address] [place] [address] Tommy Matthews MD Abdominal pain, unspecified abdominal location (Primary Dx); Chest pain, unspecified type Discharge Disposition: Home or Self Care 02/01/2025 - 02/01/2025 11:59 PM CDT Hospital Encounter [facility] Emergency Medical Services [place] [address] [place] [address] Ambulance, [facility] Discharge Disposition: [facility] 02/01/2025 Travel from Last 3 Months Immunizations [...] How often do you attend yazidism or mu-ism serv ices? Not asked 05/05/2019 [...] worry about transportation for future doctor visits, tile picker medication, etc.? No 2024 Housing Stability [...] PM CDT Legal Sex Female 2:06 AM DEMO SPECIALIST Gender Identity Female 03/25/2024 4:14 PM [...] CDT HEMOGLOBIN A1C Routine 06/17/2018 7:12 AM DEMO SPECIALIST from Last 3 Months or Most Recently [...] spine degenerative changes and scoliosis. Dara Tavera DBA DEVELOPER DIAGNOSTIC IMAGING ORDERABL ES Final Result * (ABNORMAL) CBC WITH DIFFERENTIAL (04/07/2025 11:58 PM CDT) Only the most recent of3 resultswithin the time period is included. WBC 16.1(H) 4.0 - 10.0 K/uL 04/08/2025 12:26 AM [facility] RBC 3.99 3.93 - 5.22 M/uL 04/08/2025 12:26 AM [facility] HEMOGLOBIN 13.3 11.2 - 15.7 g/dL 04/08/2025 12:26 AM [facility] HEMATOCRIT 38.3 34.1 - 44.9 % 04/08/2025 12:26 AM [facility] MCV 96.0(H) 79.4 - 94.8 fL 04/08/2025 12:26 AM [facility] MCH 33.3(H) 25.6 - 32.2 pg 04/08/2025 12:26 AM [facility] MCHC 34.7 32.2 - 35.5 g/dL 04/08/2025 12:26 AM [facility] RDW 12.7 11.0 - 14.5 % 04/08/2025 12:26 AM [facility] RDW-STDEV 44.9 36.9 - 56.9 fL 04/08/2025 12:26 AM [facility] PLATELETS 234 163 - 337 K/uL 04/08/2025 12:26 AM [facility] MPV 9.8(L) 10.0 - 14.8 fL 04/08/2025 12:26 AM [facility] NEUTROPHILS 75(H) 34 - 71 % 04/08/2025 12:26 AM [facility] LYMPHOCYTES 16(L) 19 - 52 % 04/08/2025 12:26 AM [facility] MONOCYTES 6 5 - 13 % 04/08/2025 12:26 AM [facility] EOSINOPHILS 2 1 - 6 % 04/08/2025 12:26 AM [facility] BASOPHILS 1 0 - 1 % 04/08/2025 12:26 AM [facility] IMMATURE GRANULOCYTES 0 % 04/08/2025 12:26 AM [facility] NEUTROPHIL ABSOLUTE 12.05(H) 1.56 - 6.13 K/uL 04/08/2025 12:26 AM [facility] LYMPHOCYTE ABSOLUTE 2.57 1.20 - 3.40 K/uL 04/08/2025 12:26 AM [facility] MONOCYTE ABSOLUTE 0.99(H) 0.24 - 0.36 K/uL 04/08/2025 12:26 AM [facility] EOSINOPHIL ABSOLUTE 0.27 0.04 - 0.36 K/uL 04/08/2025 12:26 AM [facility] BASOPHILS ABSOLUTE 0.12(H) 0.01 - 0.08 K/uL 04/08/2025 12:26 AM CDT [facility] IMMATURE GRANULOCYTES ABSOLUTE 0.05 K/uL 04/08/2025 12:26 AM CDT [facility] Blood BLOOD SPECIMEN / Unknown Collection / Unknown 04/07/2025 11:58 PM CDT 04/08/2025 12:22 AM CDT Tommy Matthews MD HEMATOLOGY ORDERABLES Fi nal Result Performing Organization Address City/[facility]/ZIP Co de Phone Number [facility] CLIA # [id number] [address] [place] [address] * LIPASE (04/07/2025 11:58 PM CDT) Only the most recent of2 resultswithin the time period is included. LIPASE 20 13 - 60 U/L 04/08/2025 12:42 AM CDT [facility] Blood BLOOD SPECIMEN / Unknown Collection / Unknown 04/07/2025 11:58 PM CDT 04/08/2025 12:22 AM CDT Tommy Matthews MD CHEMISTRY ORDERABLES Fin al Result Performing Organization Address City/[facility]/ZIP Co de Phone Number [facility] CLIA # [id number] [address] [place] [address] * (ABNORMAL) COMPREHENSIVE METABOLIC PANEL (04/07/2025 11:58 PM CDT) Only the most recent of3 resultswithin the time period is included. SODIUM 134(L) 136 - 145 mmol/L 04/08/2025 12:42 AM CDT [facility] POTASSIUM 3.7 3.5 - 5.1 mmol/L 04/08/2025 12:42 AM CDT [facility] CHLORIDE 99 98 - 107 mmol/L 04/08/2025 12:42 AM CDT [facility] CO2 24 22 - 29 mmol/L 04/08/2025 12:42 AM CDT [facility] CALCIUM 9.9 8.6 - 10.0 mg/dL 04/08/2025 12:42 AM [facility] BUN 14 6 - 20 mg/dL 04/08/2025 12:42 AM [facility] CREATININE 0.97(H) 0.51 - 0.95 mg/dL 04/08/2025 12:42 AM [facility] GLUCOSE 100(H) 74 - 99 mg/dL 04/08/2025 12:42 AM [facility] TOTAL PROTEIN 6.7 6.6 - 8.7 g/dL 04/08/2025 12:42 AM [facility] ALBUMIN 4.1 3.5 - 5.2 g/dL 04/08/2025 12:42 AM [facility] BILIRUBIN TOTAL 0.2 0.0 - 1.2 mg/dL 04/08/2025 12:42 AM [facility] ALKALINE PHOSPHATASE 121(H) 35 - 104 U/L 04/08/2025 12:42 AM [facility] AST 16 0 - 35 U/L 04/08/2025 12:42 AM [facility] ALT 10 0 - 35 U/L 04/08/2025 12:42 AM [facility] GFR >60 >=60 mL/min/1.7 3 sq meter 04/08/2025 12:42 AM [facility] Comment:eGFR calculated with 2020 CKD-EPI equation. Vegetarian diet, extremely high or low muscle mass, and may affect results. Cystatin C with Glomerular Filtration Rate is a suitable alternative for these patients. ANION GAP 11 5 - 20 mmol/L 04/08/2025 12:42 AM [facility] Blood BLOOD SPECIMEN / Unknown Collection / Unknown 04/07/2025 11:58 PM CDT 04/08/2025 12:22 AM CDT us Tommy Matthews MD CHEMISTRY ORDERABLES Fin al Result [facility] CLIA # [id number] [address] [address] * CT ABDOMEN PELVIS WO CONTRAST (04/07/2025 [...] pain, stone disease suspected ORDERING PROVIDER: TOMMY MAHMOODOLOGISTS NOTE: COMPARISON: January 2025 TECHNIQUE: Contiguous axial [...] stone disease suspected ORDERING PROVIDER: TOMMY MATTHEWS TECHNKATELIN NOTE: COMPARISON: January 2025 TECHNIQUE: Contiguous axial [...] - 2 /hpf 04/07/2025 9:37 PM CDT [facility] RBC UA 0-2 0 - 2 /hpf 04/07/2025 9:37 PM CDT [facility] BACTERIA UA Negative Negative /hpf 04/07/2025 9:37 PM CDT [facility] EPITHELIAL CELLS, URINE 0-5 0 - 5 /hpf 04/07/2025 9:37 PM CDT [facility] Urine URINE SPECIMEN OBTAINED BY CLEAN CATCH PROCEDURE / Unknown Collection / Unknown 04/07/2025 9:30 PM CDT 04/07/2025 9:34 PM CDT Tommy Matthews MD URINE ORDERABLES Final R esult [facility] CLIA # [id number] [address] [place] [address] * (ABNORMAL) URINALYSIS WITH REFLEX MICROSCOPIC (04/07/2025 9:30 PM CDT) Only the most recent of2 resultswithin the time period is included. COLOR UA Yellow Pale to Dark Yellow 04/07/2025 9:37 PM CDT [facility] CLARITY UA Clear Clear 04/07/2025 9:37 PM CDT [facility] SPECIFIC GRAVITY UA <=1.005 1.003 - 1.035 04/07/2025 9:37 PM CDT [facility] PH UA 6.0 5.0 - 8.0 04/07/2025 9:37 PM CDT [facility] LEUKOCYTE ESTERASE UA 1+(A) Negative 04/07/2025 9:37 PM CDT [facility] NITRITE UA Negative Negative 04/07/2025 9:37 PM CDT [facility] PROTEIN UA Negative Negative 04/07/2025 9:37 PM CDT [facility] GLUCOSE UA Negative Negative 04/07/2025 9:37 PM CDT [facility] KETONES UA Negative Negative 04/07/2025 9:37 PM CDT [facility] UROBILINOGEN UA 0.2 <2.0 mg/dL 9:37 PM CDT [facility] BILIRUBIN UA Negative Negative 04/07/2025 9:37 PM CDT [facility] BLOOD UA Negative Negative 04/07/2025 9:37 PM CDT [facility] Urine URINE SPECIMEN OBTAINED BY CLEAN CATCH PROCEDURE / Unknown Collection / Unknown 04/07/2025 9:30 PM CDT 04/07/2025 9:34 PM CDT us Tommy Matthews MD URINE ORDERABLES Final R esult [facility] CLIA # [id number] [address] [place] [address] * XR ABDOMEN 1 VW (03/08/2025 8:06 [...] URINE Negative Negative 03/08/2025 6:33 PM CDT [facility] PCP QUAL, URINE Negative Negative 6:33 PM CDT [facility] COCAINE QUAL URINE Negative Negative 2024 6:33 PM CDT [facility] METHAMPHETAMINE QUAL, URINE Negative Negative 03/08/2025 6:33 PM CDT [facility] OPIATE QUAL, URINE Presumptive Positive(A) Negative 03/08/2025 6:33 PM CDT [facility] AMPHETAMINE QUAL, URINE Negative Negative 03/08/2025 6:33 PM CDT [facility] BENZODIAZEPINE QUAL, URINE Presumptive Positive(A) Negative 03/08/2025 6:33 PM CDT [facility] TRICYCLICS QUAL, URINE Presumptive Positive(A) Negative 03/08/2025 6:33 PM CDT [facility] METHADONE QUAL, URINE Negative Negative 03/08/2025 6:33 PM CDT [facility] BARBITURATE QUAL, URINE Negative Negative 03/08/2025 6:33 PM CDT [facility] OXYCODONE QUAL, URINE Negative Negative 03/08/2025 6:33 PM CDT [facility] Urine URINE SPECIMEN OBTAINED BY CLEAN CATCH PROCEDURE / Unknown Collection / Unknown 03/08/2025 6:03 PM CDT 03/08/2025 6:17 PM CDT Narrative [facility] - 03/08/2025 6:33 PM CDT This test [...] Anand Bower DO URINE ORDERABLES Final Result [facility] CLIA # [id number] [address] [address] * XR CERVICAL SPINE 2 OR 3 [...] identified. Impression: 1. As above. Dara Tavera DBA DEVELOPER DIAGNOSTIC IMAGING ORDERABL ES Final Result [...] 6 <=10 ng/L 02/01/2025 6:42 PM CDT [facility] Blood Venipuncture / Unknown 02/01/2025 5:53 PM CDT 02/01/2025 6:24 PM CDT Narrative [facility] - 02/01/2025 6:42 PM CDT Troponin Detectable but normal range. us Tommy Matthews MD CHEMISTRY ORDERABLES Fin al Result [facility] CLIA # [id number] [address] [place] [address] * (ABNORMAL) BRAIN NATRIURETIC PEPTIDE, BNP OR PROBNP (02/01/2025 5:53 PM CDT) PROBNP, N TERMINAL 260(H) 0 - 125 pg/mL 02/01/2025 6:42 PM CDT [facility] Comment: INTERPRETIVE COMMENT based on diagnosis: Diagnostic [...] Matthews MD CHEMISTRY ORDERABLES Fin al Result [id number] [address] [place], [place] [address] * HEMOGLOBIN A1C (06/17/2018 7:12 AM DEMO SPECIALIST) HEMOGLOBIN A1C 5.2 4.8 - 5.9 % 06/17/2018 9:37 AM DEMO SPECIALIST [facility] EST. AVG GLUCOSE, A1C 103 mg/dL 06/17/2018 9:37 AM DEMO SPECIALIST [facility] Blood Venipuncture / Unknown 06/17/2018 7:12 AM DEMO SPECIALIST 06/17/2018 7:13 AM DEMO SPECIALIST [facility] - 06/17/2018 9:37 AM DEMO SPECIALIST If not available from last three months. HGB A1C INTERPRETATION NORMAL: <5.7% PRE-DIABETES: 5.7 - 6.4% DIABETES: 6.5% OR GREATER Benedicto Mcgill MD CHEMISTRY ORDERABLES Final Result Performing Organization Address City/[facility] Co de Phone Number [id number] [address] [place] [address] [facility] CLIA # [id number] [address] [place] [address] from Last 3 Months or Most Recently Relevant to Health Maintenance Insurance [place] DUAL COMPLETE HMO [facility] [id number] [place] Advance Directives For more information, please contact: [phone] Documents on File Type Date Recorded Patient Manager Urgent Care Expl anation Advance Directive POA 02/23/2024 3:51 [...] 1:52 AM 10/27/2021 2:07 PM Care Teams [employer] Dean Relationship Specialty Start Date End Date Sally Dong MD [address] [facility] [address] [place] [phone] PCP - General Family Practice 04/07/22
[2025-05-01 14:36] VITALS: RESP 18
[2025-05-01] MEDS: morphine 4 mg/mL SDV 1 mL IM (14:36)
[2025-05-01 15:01] VITALS: BP 89/61; PULSE 70; O2SAT 100
== END 2025-05-01 15:03 | disposition home or self-care (01) ==
PROVIDERS: Emergency Provider Emergency Medicine; PCP Registered Nurse
DX: S49.91XD Unspecified injury of right shoulder and upper arm, subsequent encounter (principal); J44.9 Chronic obstructive pulmonary disease, unspecified; W19.XXXD Unspecified fall, subsequent encounter
CPT/HCPCS: 73030; 96372; 99284; J2270; J9999

== ENCOUNTER → 2025-05-05 09:19 | Outpatient (BNVA) | payer MEDICARE, MEDICAID, SELFPAY | PROVIDERS: PCP Registered Nurse; Visit Provider Orthopaedic Surgery | DX: S49.91XD Unspecified injury of right shoulder and upper arm, subsequent encounter (principal); W19.XXXD Unspecified fall, subsequent encounter | CPT/HCPCS: 99204 ==

== ENCOUNTER 2025-05-08 18:32 | Emergency (ER) | payer MEDICARE, MEDICAID, SELFPAY ==
--- OUTSIDE RECORDS SUMMARY | 2025-05-01 05:15 | XMS_ITS | Encounter Summary ---
Author Organization [facility] Address [address] [place] [address] Care Team Providers Care Forms Examiner Name Role Phone Sally Dong MD Primary Care Provider [phone] Encounter Details Date Type Department Care Team (Latest Contact Info) Description 05/01/2025 5:15 AM TESTBOARD OPERATOR - 05/01/2025 11:59 PM [facility] Hospital Encounter [facility] Emergency Medical Services [address] [id number] Ambulance, [place] [address] [place] [address] Discharge Disposition: Home or Self Care Social [...] How often do you attend taoist or taoism serv ices? Not asked 05/05/2019 [...] worry about transportation for future doctor visits, hand picker medication, etc.? No 2024 Housing Stability [...] PM CDT Legal Sex Female 2:06 AM TESTBOARD OPERATOR Gender Identity Female 03/25/2024 4:14 PM CDT Sexual Orientation Not on file documented as of this encounter Medications at Time of Discharge [...] 30 Tablet 12/19/2024 naloxone (NARCAN) 4 mg/spray Conrad, Non-Aerosol EMERGENCY USE ONLY: Administer 1 spray [...] daily. 02/06/2018 documented as of this encounter Plan of Treatment Not on file documented as of this encounter Visit Diagnoses Not on filedocumented in this encounter Additional Health Concerns Assessment Noted Time PHQ-9 Depression Total Score: 3 10/01/19 23 4:46 PM CDT documented as of this encounter Care Teams Forms Examiner Relationship Specialty Start Date End Date Sally Dong MD [address] [id number] PCP - General Family Practice 04/07/22 documented as of this encounter
[2025-05-08 18:33] VITALS: BP 155/87; PULSE 90; RESP 20; TEMP 36.8; O2SAT 99
--- NOTE | 2025-05-08 18:41 | W.ED.ABDPA2 ---
HPI - Abdominal Pain General: Chief Complaint: Abdominal Pain Stated Complaint: abd Source: patient and EMS Mode of arrival: EMS Limitations: no limitations History of Present Illness: 59-year-old female has a history of chronic abdominal pain she states that she had been moving and doing a lot of work today and feels like she had strained a muscle in her abdomen is having some increased pain diffusely rates her pain 5 out of 10 denies any fever denies any vomiting or diarrhea. Improved with rest. Related Data Home Medications ?Medication ?Instructions ?Recorded ?Confirmed acetaminophen 500 mg tablet 1,000 mg PO Q6H PRN Pain 07/09/21 05/05/25 pantoprazole 40 mg tablet,delayed 40 mg PO BID 07/27/23 05/05/25 release ondansetron HCl 4 mg tablet 4 mg PO Q8H 01/22/24 05/05/25 prednisolone acetate 1 % eye drp ophthalmic (eye) 05/10/24 05/05/25 drops,suspension dicyclomine 10 mg capsule 10 mg PO BID PRN 05/27/24 05/05/25 sucralfate 1 gram tablet (Carafate) 1 g PO QID 05/27/24 05/05/25 famotidine 20 mg tablet mg PO 09/23/24 05/05/25 lubiprostone 24 mcg capsule mcg PO 09/23/24 05/05/25 Previous Rx's ?Medication ?Instructions ?Recorded nystatin 100,000 unit/gram topical 1 applic topical BID #30 grams 06/16/22 powder SOLE Supports #1 ea 01/01/24 fluticasone propionate 50 1 spray intranasal DAILY PRN nasal 05/10/24 mcg/actuation nasal congestion 30 days #16 grams spray,suspension (Flonase Allergy Relief) Rollator Walker #1 ea 09/06/24 promethazine 25 mg tablet 12.5 - 25 mg (0.5 - 1 x 25 mg) PO 10/05/24 Q6H PRN nausea and vomiting #10 tabs albuterol sulfate 90 mcg/actuation See Rx Instructions .Route 11/22/24 aerosol inhaler .COMPLEX #9 grams cholecalciferol (vitamin D3) 1,250 1,250 mcg PO .once a week 90 days 12/16/24 mcg (50,000 unit) capsule #12 caps albuterol sulfate 2.5 mg/3 mL 2.5 mg (3 mL) inhalation Q8H PRN 03/26/25 (0.083 %) solution for nebulization bronchospasm 10 days #90 mL nebulizer #1 ea 03/26/25 cyclobenzaprine 10 mg tablet 10 mg PO TID PRN muscle spasm #90 04/01/25 tabs lamotrigine 200 mg tablet 200 mg PO DAILY@06 #30 tabs 04/10/25 quetiapine 25 mg tablet See Rx Instructions PO .COMPLEX 04/10/25 anxiety and agitation #150 tabs trazodone 300 mg tablet 300 mg PO .q hs PRN sleep #30 tabs 04/10/25 vortioxetine 20 mg tablet 20 mg PO .q am #30 tabs 04/10/25 vortioxetine 5 mg tablet 5 mg PO DAILY #30 tabs 04/10/25 tizanidine 4 mg tablet 4 mg PO BID PRN muscle spasticity 04/14/25 #60 tabs hydrocodone 5 mg-acetaminophen 325 1 tab PO Q6H PRN pain #20 tabs 04/29/25 mg tablet methocarbamol 750 mg tablet 750 mg PO Q6H PRN spasms #20 tabs 05/01/25 Allergies Allergy/AdvReac Type Severity Reaction Status Date / Time haloperidol (From Haldol) Allergy Severe unknown Verified 05/05/25 09:32 Penicillins Allergy Severe ALGY-Anaphy Verified 05/05/25 09:32 laxis sulfamethoxazole (From Allergy Severe ALGY-Hives Verified 05/05/25 09:32 Bactrim) Tetracyclines Allergy Severe ALGY-Hives Verified 05/05/25 09:32 gabapentin (From Neurontin) Allergy Intermediate ADR-Halluci Verified 05/05/25 09:32 nating ketorolac (From Toradol) Allergy Intermediate ALGY-Rash Verified 05/05/25 09:32 lithium Allergy Intermediate ADR-Halluci Verified 05/05/25 09:32 nating fentanyl Allergy Mild rash Verified 05/05/25 09:32 adhesive tape Allergy Rash Verified 05/05/25 09:32 codeine Allergy GI Verified 05/05/25 09:32 duloxetine (From Cymbalta) Allergy ALGY-Rash Verified 05/05/25 09:32 fluoxetine Allergy ADR-Migrain Verified 05/05/25 09:32 e metoclopramide (From Reglan) Allergy ADR-Shakine Verified 05/05/25 09:32 ss nitroglycerin Allergy ADV-Weaknes Verified 05/05/25 09:32 s tramadol Allergy Unknown Verified 05/05/25 09:32 trimethoprim (From Bactrim) Allergy ALGY-Hives Verified 05/05/25 09:32 ziprasidone (From Geodon) AdvReac Severe ADR-Halluci Verified 05/05/25 09:32 nating risperidone (From Risperdal) AdvReac ADR-Halluci Verified 05/05/25 09:32 nating Review of Systems GI: Reports: abdominal pain PFSH ED PFSH: Medical History Chronic gastritis without bleeding Insomnia Tobacco use disorder Opioid dependence, uncomplicated Cannabis dependence, uncomplicated Psychiatric care Tardive dyskinesia Esophageal stricture Cystitis cystica Restrictive lung disease Chronic back pain greater than 3 months duration Borderline personality disorder Schizoaffective disorder, bipolar type Urgency incontinence Neurogenic bladder Dysphagia COPD (chronic obstructive pulmonary disease) GERD without esophagitis Foreign body in bladder Bladder stone Chronic anxiety Surgical History H/O bladder repair surgery MESH REPAIR H/O esophagogastroduodenoscopy (09/21/20) H/O colonoscopy with polypectomy History of foot surgery sx in 2009. Screws placed by Dr. Don. S/P bronchoscopy with biopsy History of ureter stent History of breast biopsy Hx of cholecystectomy H/O: hysterectomy History of appendectomy Family History Mother No problems noted. Father No problems noted. Other Asthma Cancer Diabetes Heart disease Social History Smoking and tobacco/nicotine status: never used tobacco/nicotine Quit status (tobacco/nicotine): considering quitting Second hand smoke exposure: Yes Alcohol intake: never Substance/Drug Use: former Lives independently: Yes Household members: spouse Marital status: Number of children: 3 Current occupational status: disabled Do you think of yourself as: Straight/Heterosexual Current gender identity: Female Physical Exam Const: COMMON NORMALS: no acute distress, patient oriented x3 and healthy appearing HENMT: COMMON NORMALS: normocephalic and atraumatic HEAD & SCALP: normocephalic and atraumatic Eye: COMMON NORMALS: Equal, round and reactive pupils present and EOMs intact bilaterally PUPIL: Yes Equal, round and reactive pupils present Neck/C-Spine: COMMON NORMALS: full ROM and supple Chest: COMMONS NORMALS: normal inspection of the chest and normal palpation of entire chest wall Resp: COMMON NORMALS: normal respiratory effort, No retractions, No use of accessory muscles and clear to auscultation bilaterally AUSCULTATION: clear to auscultation bilaterally Cardio: COMMON NORMALS: regular rate, regular rhythm and No murmurs present (Cardio) RATE: regular rate RHYTHM: regular rhythm GI: COMMON NORMALS: Normal to inspection, nondistended, normoactive bowel sounds present, Soft to palpation, non-tender and no masses PALPATION: Yes Soft to palpation Extremity: COMMON NORMALS: normal to inspection and full ROM Neuro: COMMON NORMALS: patient oriented x3, moves all extremities and no focal motor deficits Psych: COMMON NORMALS: mental status grossly normal, Normal thought process present and cooperative THOUGHT PROCESS: Normal thought process present Skin: COMMON NORMALS: no rashes or lesions noted and no wounds GENERAL SKIN EXAM: no rashes or lesions noted Course Vital Signs: Vital signs: Vital Signs Temperature 98.2 F 05/08/25 18:33 Pulse Rate 90 05/08/25 18:33 Respiratory Rate 20 H 05/08/25 18:33 Blood Pressure 155/87 05/08/25 18:33 Pulse Oximetry 99 05/08/25 18:33 Oxygen Delivery Me thod Room Air 05/08/25 18:33 MDM - Abdominal Pain Medical Decision Making Patient presents for abdominal pain that is chronic in nature differential includes muscle strain, appendicitis, cholecystitis. Patient's exam here is benign no tenderness vitals are normal she has no signs of acute surgical abdomen. Patient has a long history of chronic abdominal pain she feels improved after morphine and Zofran she is stable for discharge follow-up PCP return if worsening. No radiology studies performed this visit Discharge Plan Discharge Patient Disposition: Home Clinical Impression: Abdominal pain Condition: Stable Prescriptions: No Action pantoprazole 40 mg tablet,delayed release (DR/EC) 40 mg PO BID (DME) SOLE Supports See Rx Instructions .Route .MEDSULY Qty: 1 0RF Rx Instructions: As directed PRE-Auth prednisolone acetate 1 % drops,suspension ophthalmic (eye) fluticasone propionate [Flonase Allergy Relief] 50 mcg/actuation spray,suspension 1 spray intranasal DAILY PRN (Reason: nasal congestion) 30 Days Qty: 16 2RF Rx Instructions: administer into each nostril dicyclomine 10 mg capsule 10 mg PO BID PRN famotidine 20 mg tablet PO lubiprostone 24 mcg capsule PO tizanidine 4 mg tablet 4 mg PO BID PRN (Reason: muscle spasticity) Qty: 60 0RF albuterol sulfate 2.5 mg /3 mL (0.083 %) solution for nebulization 2.5 mg inhalation Q8H PRN (Reason: bronchospasm) 10 Days Qty: 90 0RF ([facility]) nebulizer See Rx Instructions .Route .MEDSUPPLY Qty: 1 0RF Rx Instructions: daily PRN ondansetron HCl 4 mg tablet 4 mg PO Q8H sucralfate [Carafate] 1 gram tablet 1 g PO QID lamotrigine 200 mg tablet 200 mg PO DAILY@06 Qty: 30 2RF Rx Instructions: Take one tablet by mouth every morning quetiapine 25 mg tablet See Rx Instructions PO .COMPLEX Qty: 150 2RF Rx Instructions: Take 1 tablet every AM, and 2 at bedtime; may take 1 additional tablet twice during the daytime, if needed for anxiety and agitation vortioxetine 20 mg tablet 20 mg PO .q am Qty: 30 2RF Rx Instructions: Take one tablet once daily vortioxetine 5 mg tablet 5 mg PO DAILY Qty: 30 2RF Rx Instructions: Take one tablet daily with the 20 mg dose trazodone 300 mg tablet 300 mg PO .q hs PRN (Reason: sleep) Qty: 30 2RF Rx Instructions: Take one tablet daily at bedtime, if needed for sleep nystatin 100,000 unit/gram powder 1 applic topical BID Qty: 30 0RF Rx Instructions: apply locally to B/L groin folds (DME) Rollator Walker See Rx Instructions .Route .MEDSUPPLY Qty: 1 0RF Rx Instructions: As directed HOME: Length of need 4 months albuterol sulfate 90 mcg/actuation HFA aerosol inhaler See Rx Instructions .ROUTE .COMPLEX Qty: 9 0RF Dose Instruction: INHALE 2 PUFFS BY MOUTH EVERY 6 HOURS NEEDED FOR SHORTNESS OF BREATH OR WHEEZING Rx Instructions: INHALE 2 PUFFS BY MOUTH EVERY 6 HOURS NEEDED FOR SHORTNESS OF BREATH OR WHEEZING cholecalciferol (vitamin D3) 1,250 mcg (50,000 unit) capsule 1,250 mcg PO .once a week 90 Days Qty: 12 0RF cyclobenzaprine 10 mg tablet 10 mg PO TID PRN (Reason: muscle spasm) Qty: 90 0RF acetaminophen 500 mg Tablet 1,000 mg PO Q6H PRN (Reason: Pain) methocarbamol 750 mg tablet 750 mg PO Q6H PRN (Reason: spasms) Qty: 20 0RF promethazine 25 mg tablet 12.5 - 25 mg PO Q6H PRN (Reason: nausea and vomiting) Qty: 10 0RF Rx Instructions: 4 doses during day; last dose no later than 4 hr before bedtime hydrocodone-acetaminophen 5-325 mg tablet 1 tab PO Q6H PRN (Reason: pain) Qty: 20 0RF Discharge Orders: Discharge ED (Routine); Ordered 05/08/25 Ordered By: Damien Urbina Referrals: Dara Tavera FNP [Primary Care Provider, Family Practice] - 4-7 days Discharge Diet: Advance as tolerated Discharge Activity: Resume usual activity Patient Instructions: Abdominal Pain (ED) Print Language: Serbian Coding Level of Care Code ED Network Control Technician for Shellie Guallpa
--- OUTSIDE RECORDS SUMMARY | 2025-05-08 18:41 | XMS_ITS | Encounter Summary ---
Author Organization [facility] Address [address] [place] [address] Care Team Providers Care Territory Service Representative Name Role Phone Dara Tavera AMANDEEP Primary Care Provider Encounter Details Date Type Department Care Team (Latest Contact Info) Description 12/08/2003 Inpatient Historical [facility] [address] [place] [address] Robel Samuel MD [address] [place] [address] DRUG DEPRESSIVE SYNDROME (CMS/HCC) (Primary Dx) Social History Tobacco Use Types Packs/Day Years Used Date Smoking Tobacco: Never Assessed Comments Unknown Sex and Gender Information Value Date Recorded Sex Assigned at Not on file Legal Sex Female 5:22 AM AUTO SERVICE INSTRUCTOR Gender Identity Not on file Sexual Orientation Not on file documented as of this encounter Plan of Treatment Not on file documented as of this encounter Visit Diagnoses Diagnosis 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/HCC)- Primary Drug-induced mood disorder documented in this encounter Additional Health Concerns Infection Onset Date Last Indicated Resolved Time 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
--- OUTSIDE RECORDS SUMMARY | 2025-05-08 18:41 | XMS_ITS | Encounter Summary ---
Author Organization [facility] Address [address] [place] [address] Care Team Providers Care Electric Range Assembler Name Role Phone Dara Tavera Primary Care Provider Encounter Details Date Type Department Care Team (Latest Contact Info) Description 02/11/2004 Outpatient Historical [facility] [address] [place] [address] AMBULANCE, [facility] NONPSYCHOTIC MENTAL DISORDER NOS (Primary Dx) Social History Tobacco Use Types Packs/Day Years Used Date Smoking Tobacco: Never Assessed Comments Unknown Sex and Gender Information Value Date Recorded Sex Assigned at Not on file Legal Sex Female 5:22 AM TECHNOLOGY STRATEGIST Gender Identity Not on file Sexual Orientation Not on file documented as of this encounter Plan of Treatment Not on file documented as of this encounter Visit Diagnoses Diagnosis Unspecified nonpsychotic mental disorder- Primary documented in this encounter Additional Health Concerns Infection Onset Date Last Indicated Resolved Time VRE Comment:Urine 10/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
--- OUTSIDE RECORDS SUMMARY | 2025-05-08 18:41 | XMS_ITS | Encounter Summary ---
Author Organization [facility] Address [address] [place] [address] Care Team Providers Care Structural Steel Erector Name Role Phone Dara Tavera Primary Care Provider [phone] Encounter Details Date Type Department Care Team (Late st Contact Info) Description 01/04/[address] [facility] Behavior[facility] Clinical Services [address] [place] [address] Hood Kerr Jr., MD [address] [place] [address] Social History Tobacco Use Types Packs/Day Years Used Date Smoking Tobacco: Never Assessed Comments Unknown Sex and Gender Information Value Date Recorded Sex Assigned at Not on file Legal Sex Female 5:22 AM BLUEBERRY GROWER Gender Identity Not on file Sexual Orientation Not on file documented as of this encounter Plan of Treatment Not on file documented as of this encounter Visit Diagnoses Not on filedocumented in this encounter Additional Health Concerns Infection Onset Date Last Indicated Resolved Time 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
--- OUTSIDE RECORDS SUMMARY | 2025-05-08 18:41 | XMS_ITS | Encounter Summary ---
Author Organization [facility] Address [address] [place] [address] Care Team Providers Care Gymnastics Coach Name Role Phone Dara Tavera Primary Care Provider Encounter Details Date Type Department Care Team (Latest Contact Info) Description 12/09/[address] [facility] Family Medicine [place] [address] [facility] [address] [place] [address] Faiza Petersen MD NO ADDRESS ON FILE URIN TRACT INFECTION NOS (Primary Dx); ABDOMINAL PAIN UNSPEC SITE; ABDOMINAL TENDERNESS UNSP SITE Social History Tobacco Use Types Packs/Day Years Used Date Smoking Tobacco: Never Assessed Comments Unknown Sex and Gender Information Value Date Recorded Sex Assigned at Not on file Legal Sex Female 5:22 AM AIRPLANE DISPATCHER Gender Identity Not on file Sexual [...] 10/30/13 Resolved 11/04/2013 11/04/2013 8 10:33 AM AIRPLANE DISPATCHER R/O COVID-19 12/25/2019 12/25/2019 12/26/2019 2:46 PM CDT R/O COVID-19 05/09/2020 05/09/2020 05/09/2020 12:1 7 PM AIRPLANE DISPATCHER documented as of this encounter Care Teams Gymnastics Coach Relationship Specialty Start Date End Date Dara Tavera FNP [address] [place] [phone] PCP - General NURSE PRACTITIONER 10/13/18 documented as of this encounter
--- OUTSIDE RECORDS SUMMARY | 2025-05-08 18:41 | XMS_ITS | Encounter Summary ---
Author Organization [facility] Address [address] [place] [address] Care Team Providers Care Insurance Inspector Name Role Phone Dara Tavera Primary Care Provider [phone] Encounter Details Date Type Department Care Team (Latest Contact Info) Description 07/24/2004 Outpatient Historical [facility] [address] [place] [address] AMBULANCE, [facility] CONVULSIONS, OTHER (CMS/HCC) (Primary Dx) Social History Tobacco Use Types Packs/Day Years Used Date Smoking Tobacco: Never Assessed Comments Unknown Sex and Gender Information Value Date Recorded Sex Assigned at Not on file Legal Sex Female 5:22 AM JOCKEY AGENT Gender Identity Not on file Sexual Orientation Not on file documented as of this encounter Plan of Treatment Not on file documented as of this encounter Visit Diagnoses Diagnosis Other convulsions- Primary documented in this encounter Additional Health Concerns Infection Onset Date Last Indicated Resolved Time VRE Comment:Urine 10/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
--- OUTSIDE RECORDS SUMMARY | 2025-05-08 18:41 | XMS_ITS | Encounter Summary ---
Author Organization [facility] Address [address] [place] [address] Care Team Providers Care Windsurfing Instructor Name Role Phone Dara Tavera Primary Care Provider Encounter Details Date Type Department Care Team (Latest Contact Info) Description 08/15/2004 Outpatient Historical [facility] [address] [place] [address] AMBULANCE, [facility] SYNCOPE AND COLLAPSE (Primary Dx) Social History Tobacco Use Types Packs/Day Years Used Date Smoking Tobacco: Never Assessed Comments Unknown Sex and Gender Information Value Date Recorded Sex Assigned at Not on file Legal Sex Female 5:22 AM SHUTTLE VENEERING SUPERVISOR Gender Identity Not on file Sexual Orientation Not on file documented as of this encounter Plan of Treatment Not on file documented as of this encounter Visit Diagnoses Diagnosis Syncope and collapse- Primary documented in this encounter Additional Health Concerns Infection Onset Date Last Indicated Resolved Time 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
--- OUTSIDE RECORDS SUMMARY | 2025-05-08 18:41 | XMS_ITS | Encounter Summary ---
Author Organization [facility] Address [address] [place] [address] Care Team Providers Care Distribution Lineman Name Role Phone Dara Tavera Primary Care Provider [phone] Encounter Details Date Type Department Care Team (Latest Contact Info) Description 10/22/2004 Outpatient Historical [facility] [place] [address] [facility] [address] [place] [address] Ryan Don NP NO ADDRESS ON FILE LUMP OR MASS IN BREAST (Primary Dx) Social History Tobacco Use Types Packs/Day Years Used Date Smoking Tobacco: Never Assessed Comments Unknown Sex and Gender Information Value Date Recorded Sex Assigned at Not on file Legal Sex Female 5:22 AM CONSULTING SALES EXECUTIVE Gender Identity Not on file Sexual Orientation Not on file documented as of this encounter Plan of Treatment Not on file documented as of this encounter Visit Diagnoses Diagnosis Lump or mass in breast- Primary documented in this encounter Additional Health Concerns Infection Onset Date Last Indicated Resolved Time 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
--- OUTSIDE RECORDS SUMMARY | 2025-05-08 18:41 | XMS_ITS | Encounter Summary ---
Author Organization [facility] Address [address] [place] [address] Care Team Providers Care Plate Put In Worker Name Role Phone Dara Tavera Primary Care Provider [phone] Encounter Details Date Type Department Care Team (Latest Contact Info) Description 01/21/2004 Outpatient Historical [facility] [address] [place] [address] AMBULANCE, [facility] CONVULSIONS, OTHER (CMS/HCC) (Primary Dx) Social History Tobacco Use Types Packs/Day Years Used Date Smoking Tobacco: Never Assessed Comments Unknown Sex and Gender Information Value Date Recorded Sex Assigned at Not on file Legal Sex Female 5:22 AM FORMING MACHINE ADJUSTER Gender Identity Not on file Sexual Orientation Not on file documented as of this encounter Plan of Treatment Not on file documented as of this encounter Visit Diagnoses Diagnosis Other convulsions- Primary documented in this encounter Additional Health Concerns Infection Onset Date Last Indicated Resolved Time 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
--- OUTSIDE RECORDS SUMMARY | 2025-05-08 18:41 | XMS_ITS | Encounter Summary ---
Author Organization [facility] Address [address] [place] [address] Care Team Providers Care Medical Research Scientist Name Role Phone Dara Tavera Primary Care Provider [phone] Encounter Details Date Type Department Care Team (Late st Contact Info) Description 12/10/2004 Outpatient Historical [facility] Faiza Petersen MD NO ADDRESS ON FILE Social History Tobacco Use Types Packs/Day Years Used Date Smoking Tobacco: Never Assessed Comments Unknown Sex and Gender Information Value Date Recorded Sex Assigned at Not on file Legal Sex Female 5:22 AM NEWSPAPER SUBSCRIPTION SOLICITOR Gender Identity Not on file Sexual Orientation Not on file documented as of this encounter Plan of Treatment Not on file documented as of this encounter Visit Diagnoses Not on filedocumented in this encounter Additional Health Concerns Infection Onset Date Last Indicated Resolved Time VRE Comment:Urine 10/30/13 Resolved 11/04/2013 11/04/2013 8 10:33 AM NEWSPAPER SUBSCRIPTION SOLICITOR R/O COVID-19 12/25/2019 12/25/2019 12/26/2019 2:46 PM CDT R/O COVID-19 05/09/2020 05/09/2020 05/09/2020 12:1 7 PM NEWSPAPER SUBSCRIPTION SOLICITOR documented as of this encounter Care Teams Medical Research Scientist Relationship Specialty Start Date End Date Dara Tavera FNP [address] [place] [phone] PCP - General NURSE PRACTITIONER 10/13/18 documented as of this encounter
--- OUTSIDE RECORDS SUMMARY | 2025-05-08 18:41 | XMS_ITS | Encounter Summary ---
Author Organization [facility] Address [address] [place] [address] Care Team Providers Care Demolition Crane Operator Name Role Phone Dara Tavera Primary Care Provider Encounter Details Date Type Department Care Team (Latest Contact Info) Description 11/25/2004 Outpatient Historical [facility] [address] [place] [address] [address], [facility] NONPSYCHOTIC MENTAL DISORDER NOS (Primary Dx) Social History Tobacco Use Types Packs/Day Years Used Date Smoking Tobacco: Never Assessed Comments Unknown Sex and Gender Information Value Date Recorded Sex Assigned at Not on file Legal Sex Female 5:22 AM LATHE WINDER Gender Identity Not on file Sexual Orientation Not on file documented as of this encounter Plan of Treatment Not on file documented as of this encounter Visit Diagnoses Diagnosis Unspecified nonpsychotic mental disorder- Primary documented in this encounter Additional Health Concerns Infection Onset Date Last Indicated Resolved Time VRE Comment:Urine 10/30/13 Resolved 11/04/2013 11/04/2013 8 10:33 AM LATHE WINDER R/O COVID-19 12/25/2019 12/25/2019 12/26/2019 2:46 PM CDT R/O COVID-19 05/09/2020 05/09/2020 05/09/2020 12:1 7 PM LATHE WINDER documented as of this encounter Care Teams Demolition Crane Operator Relationship Specialty Start Date End Date Dara Tavera FNP [address] [place] [phone] PCP - General NURSE PRACTITIONER 10/13/18 documented as of this encounter
--- OUTSIDE RECORDS SUMMARY | 2025-05-08 18:41 | XMS_ITS | Encounter Summary ---
Author Organization [facility] Address [address] [place] [address] Care Team Providers Care Svp Research And Strategic Analysis Name Role Phone Dara Tavera Primary Care Provider Encounter Details Date Type Department Care Team (Latest Contact Info) Description 05/12/2004 Outpatient Historical [facility] [address] [place] [address] AMBULANCE, [facility] CHEST PAIN NOS (Primary Dx) Social History Tobacco Use Types Packs/Day Years Used Date Smoking Tobacco: Never Assessed Comments Unknown Sex and Gender Information Value Date Recorded Sex Assigned at Not on file Legal Sex Female 5:22 AM BIN TRIPPER OPERATOR Gender Identity Not on file Sexual Orientation Not on file documented as of this encounter Plan of Treatment Not on file documented as of this encounter Visit Diagnoses Diagnosis Chest pain, unspecified- Primary documented in this encounter Additional Health Concerns Infection Onset Date Last Indicated Resolved Time VRE Comment:Urine 10/30/13 Resolved 11/04/2013 11/04/2013 8 10:33 AM BIN TRIPPER OPERATOR R/O COVID-19 12/25/2019 12/25/2019 12/26/2019 2:46 PM CDT R/O COVID-19 05/09/2020 05/09/2020 05/09/2020 12:1 7 PM BIN TRIPPER OPERATOR documented as of this encounter Care Teams Svp Research And Strategic Analysis Relationship Specialty Start Date End Date Dara Tavera FNP [address] [place] [phone] PCP - General NURSE PRACTITIONER 10/13/18 documented as of this encounter
--- OUTSIDE RECORDS SUMMARY | 2025-05-08 18:41 | XMS_ITS | Encounter Summary ---
Author Organization [facility] Address [address] [place] [address] Care Team Providers Care Concession Cashier Name Role Phone Dara Tavera Primary Care Provider [phone] Encounter Details Date Type Department Care Team (Latest Contact Info) Description 05/20/2004 Outpatient Historical [facility] [address] [place] [address] AMBULANCE, [facility] CONVULSIONS, OTHER (CMS/HCC) (Primary Dx) Social History Tobacco Use Types Packs/Day Years Used Date Smoking Tobacco: Never Assessed Comments Unknown Sex and Gender Information Value Date Recorded Sex Assigned at Not on file Legal Sex Female 5:22 AM VENDING MACHINE TECHNICIAN Gender Identity Not on file Sexual Orientation Not on file documented as of this encounter Plan of Treatment Not on file documented as of this encounter Visit Diagnoses Diagnosis Other convulsions- Primary documented in this encounter Additional Health Concerns Infection Onset Date Last Indicated Resolved Time VRE Comment:Urine 10/30/13 Resolved 11/04/2013 11/04/2013 8 10:33 AM VENDING MACHINE TECHNICIAN R/O COVID-19 12/25/2019 12/25/2019 12/26/2019 2:46 PM CDT R/O COVID-19 05/09/2020 05/09/2020 05/09/2020 12:1 7 PM VENDING MACHINE TECHNICIAN documented as of this encounter Care Teams Concession Cashier Relationship Specialty Start Date End Date Dara Tavera FNP [address] [place] [phone] PCP - General NURSE PRACTITIONER 10/13/18 documented as of this encounter
--- OUTSIDE RECORDS SUMMARY | 2025-05-08 18:41 | XMS_ITS | Encounter Summary ---
Author Organization [facility] Address [address] [place] [address] Care Team Providers Care Adjuster Electrical Contacts Name Role Phone Dara Tavera Primary Care Provider Encounter Details Date Type Department Care Team (Latest Contact Info) Description 07/24/2004 Outpatient Historical [facility] [address] [place] [address] AMBULANCE, [facility] OTHER ALTERATION OF CONSCIOUSNESS (Primary Dx) Social History Tobacco Use Types Packs/Day Years Used Date Smoking Tobacco: Never Assessed Comments Unknown Sex and Gender Information Value Date Recorded Sex Assigned at Not on file Legal Sex Female 5:22 AM WASTE COLLECTOR Gender Identity Not on file Sexual Orientation Not on file documented as of this encounter Plan of Treatment Not on file documented as of this encounter Visit Diagnoses Diagnosis Other alteration of consciousness- Primary documented in this encounter Additional Health Concerns Infection Onset Date Last Indicated Resolved Time VRE Comment:Urine 10/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
--- OUTSIDE RECORDS SUMMARY | 2025-05-08 18:41 | XMS_ITS | Encounter Summary ---
Author Organization [facility] Address [address] [place] [address] Care Team Providers Care Community Board Member Name Role Phone Dara Tavera Primary Care Provider Encounter Details Date Type Department Care Team (Latest Contact Info) Description 12/01/2004 Outpatient Historical [facility] [place] [address] [facility] [address] [place] [address] Faiza Petersen MD NO ADDRESS ON FILE FEM PELV INFLAM DIS NOS (Primary Dx); ABDOMINAL PAIN UNSPEC SITE Social History Tobacco Use Types Packs/Day Years Used Date Smoking Tobacco: Never Assessed Comments Unknown Sex and Gender Information Value Date Recorded Sex Assigned at Not on file Legal Sex Female 5:22 AM CASSANDRA DEVELOPER Gender Identity Not on file Sexual [...] 10/30/13 Resolved 11/04/2013 11/04/2013 8 10:33 AM CASSANDRA DEVELOPER R/O COVID-19 12/25/2019 12/25/2019 12/26/2019 2:46 PM CDT R/O COVID-19 05/09/2020 05/09/2020 05/09/2020 12:1 7 PM CASSANDRA DEVELOPER documented as of this encounter Care Teams Community Board Member Relationship Specialty Start Date End Date Dara Tavera FNP [address] [place] [address] PCP - General NURSE PRACTITIONER 10/13/18 documented as of this encounter
--- OUTSIDE RECORDS SUMMARY | 2025-05-08 18:42 | XMS_ITS | Encounter Summary ---
Author Organization [facility] Address [address] Attn: [place] [address] Care Team Providers Care Speech And Language Clinician Name Role Phone Dara Tavera Primary Care Provider Encounter Details Date Type Department Care Team ([facility] st Contact Info) Description 01/17/2001 Outpatient Historical Non-Staff, Physician NO ADDRESS ON FILE Social History Tobacco Use Types Packs/Day Years Used Date Smoking Tobacco: Never Assessed Comments Unknown Sex and Gender Information Value Date Recorded Sex Assigned at Not on file Legal Sex Female 5:22 AM LEAD SHIPPER Gender Identity Not on file Sexual Orientation Not on file documented as of this encounter Plan of Treatment Not on file documented as of this encounter Visit Diagnoses Not on filedocumented in this encounter Additional Health Concerns Infection Onset Date Last Indicated Resolved Time VRE Comment:Urine 10/30/13 Resolved 11/04/2013 11/04/2013 8 10:33 AM LEAD SHIPPER R/O COVID-19 12/25/2019 12/25/2019 12/26/2019 2:46 PM CDT R/O COVID-19 05/09/2020 05/09/2020 05/09/2020 12:1 7 PM LEAD SHIPPER documented as of this encounter Care Teams Speech And Language Clinician Relationship Specialty Start Date End Date Dara Tavera FNP [address] [place] [phone] PCP - General NURSE PRACTITIONER 10/13/18 documented as of this encounter
--- OUTSIDE RECORDS SUMMARY | 2025-05-08 18:42 | XMS_ITS | Encounter Summary ---
Author Organization [facility] Address [address] [place] [address] Care Team Providers Care Cell Preparer Name Role Phone Dara Tavera Primary Care Provider [phone] Encounter Details Date Type Department Care Team (Latest Contact Info) Description 04/28/2005 Outpatient Historical [facility] [address] [place] [address] [place] [address] Krissy Pickard FNP [address] [facility] [address] [place] [address] ENTHESOPATHY OF HIP (Primary Dx) Social History Tobacco Use Types Packs/Day Years Used Date Smoking Tobacco: Never Assessed Comments Unknown Sex and Gender Information Value Date Recorded Sex Assigned at Not on file Legal Sex Female 5:22 AM CAR REPAIRER Gender Identity Not on file Sexual Orientation Not on file documented as of this encounter Plan of Treatment Not on file documented as of this encounter Visit Diagnoses Diagnosis Enthesopathy of hip region- Primary documented in this encounter Additional Health Concerns Infection Onset Date Last Indicated Resolved Time VRE Comment:Urine 10/30/13 Resolved 11/04/2013 11/04/2013 8 10:33 AM CAR REPAIRER R/O COVID-19 12/25/2019 12/25/2019 12/26/2019 2:46 PM CDT R/O COVID-19 05/09/2020 05/09/2020 05/09/2020 12:1 7 PM CAR REPAIRER documented as of this encounter Care Teams Cell Preparer Relationship Specialty Start Date End Date Dara Tavera FNP [address] [place] [phone] PCP - General NURSE PRACTITIONER 10/13/18 documented as of this encounter
--- OUTSIDE RECORDS SUMMARY | 2025-05-08 18:42 | XMS_ITS | Encounter Summary ---
Author Organization [facility] Address [address] [place] [address] Care Team Providers Care Ab Initio Etl Developer Name Role Phone Dara Tavera Primary Care Provider [phone] Encounter Details Date Type Department Care Team (Latest Contact Info) Description 07/17/2003 Outpatient Historical [facility] Urology- [address]tr[address], 3[address] [place] [address] Hossein Blair MD NO ADDRESS ON FILE URGE & STRESS MIXED INCONTINENCE (Primary Dx); FB bladder/urethra Social History Tobacco Use Types Packs/Day Years Used Date Smoking Tobacco: Never Assessed Comments Unknown Sex and Gender Information Value Date Recorded Sex Assigned at Not on file Legal Sex Female 5:22 AM MOTOR COACH SUPERVISOR Gender Identity Not on file Sexual [...] Resolved 11/04/2013 11/04/2013 8 10:33 AM MOTOR COACH SUPERVISOR R/O COVID-19 12/25/2019 12/25/2019 12/26/2019 2:46 PM CDT R/O COVID-19 05/09/2020 05/09/2020 05/09/2020 12:1 7 PM MOTOR COACH SUPERVISOR documented as of this encounter Care Teams Ab Initio Etl Developer Relationship Specialty Start Date End Date Dara Tavera FNP [address] [place] [phone] PCP - General NURSE PRACTITIONER 10/13/18 documented as of this encounter
--- OUTSIDE RECORDS SUMMARY | 2025-05-08 18:42 | XMS_ITS | Encounter Summary ---
Author Organization [facility] Address [address] [place] [address] Care Team Providers Care Director Speech And Hearing Name Role Phone Dara Tavera Primary Care Provider Encounter Details Date Type Department Care Team (Latest Contact Info) Description 11/08/2002 Outpatient Historical [facility] 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
--- OUTSIDE RECORDS SUMMARY | 2025-05-08 18:42 | XMS_ITS | Encounter Summary ---
Author Organization [facility] Address [address] [place] [address] Care Team Providers Care Safety Instruction Police Officer Name Role Phone Dara Tavera Primary Care Provider Encounter Details Date Type Department Care Team (Late st Contact Info) Description 05/30/2005 Outpatient Historical [facility] Pain Management Procedures [address] [place] [address] Prasad Carpenter MD NO ADDRESS ON FILE Social History Tobacco Use Types Packs/Day Years Used Date Smoking Tobacco: Never Assessed Comments Unknown Sex and Gender Information Value Date Recorded Sex Assigned at Not on file Legal Sex Female 5:22 AM PERSONAL SECRETARY Gender Identity Not on file Sexual Orientation Not on file documented as of this encounter Plan of Treatment Not on file documented as of this encounter Visit Diagnoses Not on filedocumented in this encounter Additional Health Concerns Infection Onset Date Last Indicated Resolved Time VRE Comment:Urine 10/30/13 Resolved 11/04/2013 11/04/2013 8 10:33 AM PERSONAL SECRETARY R/O COVID-19 12/25/2019 12/25/2019 12/26/2019 2:46 PM CDT R/O COVID-19 05/09/2020 05/09/2020 05/09/2020 12:1 7 PM PERSONAL SECRETARY documented as of this encounter Care Teams Safety Instruction Police Officer Relationship Specialty Start Date End Date Dara Tavera FNP [address] [place] [address] PCP - General NURSE PRACTITIONER 10/13/18 documented as of this encounter
--- OUTSIDE RECORDS SUMMARY | 2025-05-08 18:42 | XMS_ITS | Encounter Summary ---
Author Organization [facility] Address [address] [place] [address] Care Team Providers Care Hand Cloth Cutter Name Role Phone Dara Tavera Primary Care Provider Encounter Details Date Type Department Care Team (Latest Contact Info) Description 06/04/1997 Outpatient Historical [facility] Roney Arora MD [address] [facility] [address] [place] [address] Unspecified osteomyelitis, other specified site (Primary Dx); Need vaccination-viral disease Social History Tobacco Use Types Packs/Day Years Used Date Smoking Tobacco: Never Assessed Comments Unknown Sex and Gender Information Value Date Recorded Sex Assigned at Not on file Legal Sex Female 5:22 AM NUCLEAR PROCESS ENGINEER Gender Identity Not on file Sexual [...] 10/30/13 Resolved 11/04/2013 11/04/2013 8 10:33 AM NUCLEAR PROCESS ENGINEER R/O COVID-19 12/25/2019 12/25/2019 12/26/2019 2:46 PM CDT R/O COVID-19 05/09/2020 05/09/2020 05/09/2020 12:1 7 PM NUCLEAR PROCESS ENGINEER documented as of this encounter Care Teams Hand Cloth Cutter Relationship Specialty Start Date End Date Dara Tavera FNP [address] [place] [phone] PCP - General NURSE PRACTITIONER 10/13/18 documented as of this encounter
--- OUTSIDE RECORDS SUMMARY | 2025-05-08 18:42 | XMS_ITS | Encounter Summary ---
Author Organization [facility] Address [address] [place] [address] Care Team Providers Care Timber Poisoner Name Role Phone Dara Tavera Primary Care Provider [phone] Encounter Details Date Type Department Care Team (Latest Contact Info) Description 09/23/2003 Outpatient Historical [facility] [address] [place] [address] Hossein Blair MD NO ADDRESS ON FILE ENURESIS NOS (Primary Dx) Social History Tobacco Use Types Packs/Day Years Used Date Smoking Tobacco: Never Assessed Comments Unknown Sex and Gender Information Value Date Recorded Sex Assigned at Not on file Legal Sex Female 5:22 AM FOSTER CARE CASE MANAGER Gender Identity Not on file Sexual Orientation Not on file documented as of this encounter Plan of Treatment Not on file documented as of this encounter Visit Diagnoses Diagnosis Unspecified urinary incontinence- Primary documented in this encounter Additional Health Concerns Infection Onset Date Last Indicated Resolved Time VRE Comment:Urine 10/30/13 Resolved 11/04/2013 11/04/2013 8 10:33 AM FOSTER CARE CASE MANAGER R/O COVID-19 12/25/2019 12/25/2019 12/26/2019 2:46 PM CDT R/O COVID-19 05/09/2020 05/09/2020 05/09/2020 12:1 7 PM FOSTER CARE CASE MANAGER documented as of this encounter Care Teams Timber Poisoner Relationship Specialty Start Date End Date Dara Tavera FNP [address] [place] [address] PCP - General NURSE PRACTITIONER 10/13/18 documented as of this encounter
--- OUTSIDE RECORDS SUMMARY | 2025-05-08 18:42 | XMS_ITS | Encounter Summary ---
Author Organization [facility] Address [address] [place] [address] Care Team Providers Care Program Aide Group Work Name Role Phone Dara Tavera Primary Care Provider Encounter Details Date Type Department Care Team (Latest Contact Info) Description 04/27/2003 Outpatient Historical [facility] Behavioral Clinical Services [address] [place] [address] Oniel Upton MD NO ADDRESS ON FILE SCHIZOAFFECTIVE-UNSP EC ([facility]/H[facility]) (Primary Dx) Social History Tobacco Use Types Packs/Day Years Used Date Smoking Tobacco: Never Assessed Comments Unknown Sex and Gender Information Value Date Recorded Sex Assigned at Not on file Legal Sex Female 5:22 AM MUSIC AUTOGRAPHER Gender Identity Not on file Sexual Orientation Not on file documented as of this encounter Plan of Treatment Not on file documented as of this encounter Visit Diagnoses Diagnosis Schizoaffective disorder, unspecified condition ([facility]/HCC)- Primary Schizoaffective disorder, unspecified condition documented in this encounter Additional Health Concerns Infection Onset Date Last Indicated Resolved Time VRE Comment:Urine 10/30/13 Resolved 11/04/2013 11/04/2013 8 10:33 AM MUSIC AUTOGRAPHER R/O COVID-19 12/25/2019 12/25/2019 12/26/2019 2:46 PM CDT R/O COVID-19 05/09/2020 05/09/2020 05/09/2020 12:1 7 PM MUSIC AUTOGRAPHER documented as of this encounter Care Teams Program Aide Group Work Relationship Specialty Start Date End Date Dara Tavera FNP [address] [place] [phone] PCP - General NURSE PRACTITIONER 10/13/18 documented as of this encounter
--- OUTSIDE RECORDS SUMMARY | 2025-05-08 18:42 | XMS_ITS | Encounter Summary ---
Author Organization [facility] Address [address] [place]: [place] [address] Care Team Providers Care Stencil Cutter Machine Name Role Phone Dara Tavera Primary Care Provider Encounter Details Date Type Department Care Team ([facility] Contact Info) Description 10/29/2001 Outpatient Historical Non-Staff, Physician NO ADDRESS ON FILE Social History Tobacco Use Types Packs/Day Years Used Date Smoking Tobacco: Never Assessed Comments Unknown Sex and Gender Information Value Date Recorded Sex Assigned at Not on file Legal Sex Female 5:22 AM CHEMISTRY TUTOR Gender Identity Not on file Sexual Orientation Not on file documented as of this encounter Plan of Treatment Not on file documented as of this encounter Visit Diagnoses Not on filedocumented in this encounter Additional Health Concerns Infection Onset Date Last Indicated Resolved Time VRE Comment:Urine 10/30/13 Resolved 11/04/2013 11/04/2013 8 10:33 AM CHEMISTRY TUTOR R/O COVID-19 12/25/2019 12/25/2019 12/26/2019 2:46 PM CDT R/O COVID-19 05/09/2020 05/09/2020 05/09/2020 12:1 7 PM CHEMISTRY TUTOR documented as of this encounter Care Teams Stencil Cutter Machine Relationship Specialty Start Date End Date Dara Tavera FNP [address] [place] [address] PCP - General NURSE PRACTITIONER 10/13/18 documented as of this encounter
--- OUTSIDE RECORDS SUMMARY | 2025-05-08 18:42 | XMS_ITS | Encounter Summary ---
Author Organization [facility] Address [address] [place] [address] Care Team Providers Care Shader And Toner Name Role Phone Dara Tavera Primary Care Provider Encounter Details Date Type Department Care Team (Latest Contact Info) Description 02/24/2003 Outpatient Historical [facility] Behavioral Clinical Services [address] [place] [address] Oniel Upton MD NO ADDRESS ON FILE SCHIZOAFFECTIVE-UNSP EC ([facility]/HCC) (Primary Dx) Social History Tobacco Use Types Packs/Day Years Used Date Smoking Tobacco: Never Assessed Comments Unknown Sex and Gender Information Value Date Recorded Sex Assigned at Not on file Legal Sex Female 5:22 AM SENIOR CORPORATE RECRUITER Gender Identity Not on file Sexual Orientation Not on file documented as of this encounter Plan of Treatment Not on file documented as of this encounter Visit Diagnoses Diagnosis Schizoaffective disorder, unspecified condition ([facility]/HCC)- Primary Schizoaffective disorder, unspecified condition documented in this encounter Additional Health Concerns Infection Onset Date Last Indicated Resolved Time VRE Comment:Urine 10/30/13 Resolved 11/04/2013 11/04/2013 8 10:33 AM SENIOR CORPORATE RECRUITER R/O COVID-19 12/25/2019 12/25/2019 12/26/2019 2:46 PM CDT R/O COVID-19 05/09/2020 05/09/2020 05/09/2020 12:1 7 PM SENIOR CORPORATE RECRUITER documented as of this encounter Care Teams Shader And Toner Relationship Specialty Start Date End Date Dara Tavera FNP [address] [place] [phone] PCP - General NURSE PRACTITIONER 10/13/18 documented as of this encounter
--- OUTSIDE RECORDS SUMMARY | 2025-05-08 18:42 | XMS_ITS | Encounter Summary ---
Author Organization [facility] Address [address] [place] [address] Care Team Providers Care Rail Signal Worker Name Role Phone Dara Tavera FITNESS COACH Primary Care Provider Encounter Details Date Type Department Care Team (Latest Contact Info) Description 11/05/2002 Outpatient [facility] [address] [place] [address] Raúl Osullivan MD [address] [place], [place] [id number] OTHER FUNCTIONAL DISORDER BLADDER (Primary Dx) Social History Tobacco Use Types Packs/Day Years Used Date Smoking Tobacco: Never Assessed Comments Unknown Sex and Gender Information Value Date Recorded Sex Assigned at Not on file Legal Sex Female 5:22 AM SCIENTIFIC SYSTEMS ANALYST Gender Identity Not on file Sexual Orientation Not on file documented as of this encounter Plan of Treatment Not on file documented as of this encounter Visit Diagnoses Diagnosis Other functional disorder of bladder- Primary documented in this encounter Additional Health Concerns Infection Onset Date Last Indicated Resolved Time VRE Comment:Urine 10/30/13 Resolved 11/04/2013 11/04/2013 8 10:33 AM SCIENTIFIC SYSTEMS ANALYST R/O COVID-19 12/25/2019 12/25/2019 12/26/2019 2:46 PM CDT R/O COVID-19 05/09/2020 05/09/2020 05/09/2020 12:1 7 PM SCIENTIFIC SYSTEMS ANALYST documented as of this encounter Care Teams Rail Signal Worker Relationship Specialty Start Date End Date Dara Tavera FNP [address] [place] [phone] PCP - General NURSE PRACTITIONER 10/13/18 documented as of this encounter
--- OUTSIDE RECORDS SUMMARY | 2025-05-08 18:42 | XMS_ITS | Encounter Summary ---
Author Organization [facility] Address [address] [place] [address] Care Team Providers Care Medical Lab Specialist Name Role Phone Dara Tavera FISHER CRAB Primary Care Provider Encounter Details Date Type Department Care Team (Latest Contact Info) Description 07/29/[address] [facility] Behavioral Clinical Services [address] [place] [address] Hood Kerr Jr., MD [address] [place] [address] SCHIZOAFFECTIVE-UNSP EC (CMS/HCC) (Primary Dx) Social History Tobacco Use Types Packs/Day Years Used Date Smoking Tobacco: Never Assessed Comments Unknown Sex and Gender Information Value Date Recorded Sex Assigned at Not on file Legal Sex Female 5:22 AM LAND DEVELOPER Gender Identity Not on file Sexual Orientation Not on file documented as of this encounter Plan of Treatment Not on file documented as of this encounter Visit Diagnoses Diagnosis Schizoaffective disorder, unspecified condition (CMS/HCC)- Primary Schizoaffective disorder, unspecified condition documented in this encounter Additional Health Concerns Infection Onset Date Last Indicated Resolved Time VRE Comment:Urine 10/30/13 Resolved 11/04/2013 11/04/2013 8 10:33 AM LAND DEVELOPER R/O COVID-19 12/25/2019 12/25/2019 12/26/2019 2:46 PM CDT R/O COVID-19 05/09/2020 05/09/2020 05/09/2020 12:1 7 PM LAND DEVELOPER documented as of this encounter Care Teams Medical Lab Specialist Relationship Specialty Start Date End Date Dara Tavera FNP [address] [place] [phone] PCP - General NURSE PRACTITIONER 10/13/18 documented as of this encounter
--- OUTSIDE RECORDS SUMMARY | 2025-05-08 18:42 | XMS_ITS | Encounter Summary ---
Author Organization [facility] Address [address] [place] [address] Care Team Providers Care Wwe Wrestler Name Role Phone Dara Tavera Primary Care Provider Encounter Details Date Type Department Care Team (Latest Contact Info) Description 07/02/2003 Outpatient Historical [facility] Imaging Services [address] [place] [address] Hossein Blair MD NO ADDRESS ON FILE RENAL & URETERAL DIS NOS (Primary Dx) Social History Tobacco Use Types Packs/Day Years Used Date Smoking Tobacco: Never Assessed Comments Unknown Sex and Gender Information Value Date Recorded Sex Assigned at Not on file Legal Sex Female 5:22 AM AEROSPACE ASSEMBLER Gender Identity Not on file Sexual Orientation Not on file documented as of this encounter Plan of Treatment Not on file documented as of this encounter Visit Diagnoses Diagnosis Unspecified disorder of kidney and ureter- Primary documented in this encounter Additional Health Concerns Infection Onset Date Last Indicated Resolved Time VRE Comment:Urine 10/30/13 Resolved 11/04/2013 11/04/2013 10:33 AM AEROSPACE ASSEMBLER R/O COVID-19 12/25/2019 12/25/2019 12/26/2019 2:46 PM CDT R/O COVID-19 05/09/2020 05/09/2020 05/09/2020 12:1 7 PM AEROSPACE ASSEMBLER documented as of this encounter Care Teams Wwe Wrestler Relationship Specialty Start Date End Date Dara Tavera FNP [address] [place] [phone] PCP - General NURSE PRACTITIONER 10/13/18 documented as of this encounter
--- OUTSIDE RECORDS SUMMARY | 2025-05-08 18:42 | XMS_ITS | Encounter Summary ---
Author Organization [facility] Address [address] [place] [address] Care Team Providers Care Stock Chaser Name Role Phone Dara Tavera Primary Care Provider Encounter Details Date Type Department Care Team (Latest Contact Info) Description 03/27/2003 Outpatient Historical [facility] Behavioral Clinical Services [address] [place] [address] Oniel Upton MD NO ADDRESS ON FILE SCHIZOAFFECTIVE-UNSP EC ([facility]/HCC) (Primary Dx) Social History Tobacco Use Types Packs/Day Years Used Date Smoking Tobacco: Never Assessed Comments Unknown Sex and Gender Information Value Date Recorded Sex Assigned at Not on file Legal Sex Female 5:22 AM PHOTOGRAPHIC EQUIPMENT ASSEMBLER Gender Identity Not on file Sexual Orientation Not on file documented as of this encounter Plan of Treatment Not on file documented as of this encounter Visit Diagnoses Diagnosis Schizoaffective disorder, unspecified condition ([facility]/HCC)- Primary Schizoaffective disorder, unspecified condition documented in this encounter Additional Health Concerns Infection Onset Date Last Indicated Resolved Time VRE Comment:Urine 10/30/13 Resolved 11/04/2013 11/04/2013 8 10:33 AM PHOTOGRAPHIC EQUIPMENT ASSEMBLER R/O COVID-19 12/25/2019 12/25/2019 12/26/2019 2:46 PM CDT R/O COVID-19 05/09/2020 05/09/2020 05/09/2020 12:1 7 PM PHOTOGRAPHIC EQUIPMENT ASSEMBLER documented as of this encounter Care Teams Stock Chaser Relationship Specialty Start Date End Date Dara Tavera FNP [address] [place] [address] PCP - General NURSE PRACTITIONER 10/13/18 documented as of this encounter
--- OUTSIDE RECORDS SUMMARY | 2025-05-08 18:42 | XMS_ITS | Encounter Summary ---
Author Organization [facility] Address [address] [place] [address] Care Team Providers Care Corporate Administrative Assistant Name Role Phone Dara Tavera Primary Care Provider [phone] Encounter Details Date Type Department Care Team (Latest Contact Info) Description 06/28/2003 Outpatient Historical [facility] Behavioral Clinical Services [address] [place] [address] Oniel Upton MD NO ADDRESS ON FILE SCHIZOAFFECTIVE-UNSP EC ([facility]/HCC) (Primary Dx) Social History Tobacco Use Types Packs/Day Years Used Date Smoking Tobacco: Never Assessed Comments Unknown Sex and Gender Information Value Date Recorded Sex Assigned at Not on file Legal Sex Female 5:22 AM RESTAURANT DELIVERY DRIVER Gender Identity Not on file Sexual Orientation Not on file documented as of this encounter Plan of Treatment Not on file documented as of this encounter Visit Diagnoses Diagnosis Schizoaffective disorder, unspecified condition ([facility]/HCC)- Primary Schizoaffective disorder, unspecified condition documented in this encounter Additional Health Concerns Infection Onset Date Last Indicated Resolved Time VRE Comment:Urine 10/30/13 Resolved 11/04/2013 11/04/2013 8 10:33 AM RESTAURANT DELIVERY DRIVER R/O COVID-19 12/25/2019 12/25/2019 12/26/2019 2:46 PM CDT R/O COVID-19 05/09/2020 05/09/2020 05/09/2020 12:1 7 PM RESTAURANT DELIVERY DRIVER documented as of this encounter Care Teams Corporate Administrative Assistant Relationship Specialty Start Date End Date Dara Tavera FNP [address] [place] [address] PCP - General NURSE PRACTITIONER 10/13/18 documented as of this encounter
--- OUTSIDE RECORDS SUMMARY | 2025-05-08 18:42 | XMS_ITS | Encounter Summary ---
Author Organization [facility] Address [address] [place] [address] Care Team Providers Care Stock Cutter Name Role Phone Dara Tavera Primary Care Provider Encounter Details Date Type Department Care Team (Latest Contact Info) Description 11/08/2002 Outpatient Historical [facility] Operating Room [address] [place] [address] Dmitri Vega MD [address] [place] [address] BENIGN NEOPLASM TONGUE (Primary Dx) Social History Tobacco Use Types Packs/Day Years Used Date Smoking Tobacco: Never Assessed Comments Unknown Sex and Gender Information Value Date Recorded Sex Assigned at Not on file Legal Sex Female 5:22 AM PIPE STEM SAWYER Gender Identity Not on file Sexual Orientation Not on file documented as of this encounter Plan of Treatment Not on file documented as of this encounter Visit Diagnoses Diagnosis Benign neoplasm of tongue- Primary documented in this encounter Additional Health Concerns Infection Onset Date Last Indicated Resolved Time VRE Comment:Urine 10/30/13 Resolved 11/04/2013 11/04/2013 8 10:33 AM PIPE STEM SAWYER R/O COVID-19 12/25/2019 12/25/2019 12/26/2019 2:46 PM CDT R/O COVID-19 05/09/2020 05/09/2020 05/09/2020 12:1 7 PM PIPE STEM SAWYER documented as of this encounter Care Teams Stock Cutter Relationship Specialty Start Date End Date Dara Tavera FNP [address] [place] [phone] PCP - General NURSE PRACTITIONER 10/13/18 documented as of this encounter
--- OUTSIDE RECORDS SUMMARY | 2025-05-08 18:42 | XMS_ITS | Encounter Summary ---
Author Organization [facility] Address [address] [place] [address] Care Team Providers Care Bond Underwriter Name Role Phone Dara Tavera Primary Care Provider Encounter Details Date Type Department Care Team (Latest Contact Info) Description 06/17/1997 Outpatient Historical [facility] Roney Arora MD [address] [place] [address] Unspecified osteomyelitis, site unspecified (CMS/HCC) (Primary Dx) Social History Tobacco Use Types Packs/Day Years Used Date Smoking Tobacco: Never Assessed Comments Unknown Sex and Gender Information Value Date Recorded Sex Assigned at Not on file Legal Sex Female 5:22 AM PERIODICALS CLERK Gender Identity Not on file Sexual Orientation Not on file documented as of this encounter Plan of Treatment Not on file documented as of this encounter Visit Diagnoses Diagnosis Unspecified osteomyelitis, site unspecified (CMS/HCC)- Primary Unspecified osteomyelitis, site unspecified documented in this encounter Additional Health Concerns Infection Onset Date Last Indicated Resolved Time VRE Comment:Urine 10/30/13 Resolved 11/04/2013 11/04/2013 8 10:33 AM PERIODICALS CLERK R/O COVID-19 12/25/2019 12/25/2019 12/26/2019 2:46 PM CDT R/O COVID-19 05/09/2020 05/09/2020 05/09/2020 12:1 7 PM PERIODICALS CLERK documented as of this encounter Care Teams Bond Underwriter Relationship Specialty Start Date End Date Dara Tavera FNP [address] [place] [phone] PCP - General NURSE PRACTITIONER 10/13/18 documented as of this encounter
--- OUTSIDE RECORDS SUMMARY | 2025-05-08 18:42 | XMS_ITS | Encounter Summary ---
Author Organization [facility] Address [address] [place] [address] Care Team Providers Care Safety Deposit Clerk Name Role Phone Dara Tavera SURVEY AND MAPPING TECHNICIAN Primary Care Provider Encounter Details Date Type Department Care Team (Latest Contact Info) Description 09/03/2003 Outpatient Historical [facility] Behavioral Clinical Services [address] [place] [address] Hood Kerr Jr., MD [address] [place] [address] SCHIZOAFFECTIVE-UNSP EC (CMS/HCC) (Primary Dx) Social History Tobacco Use Types Packs/Day Years Used Date Smoking Tobacco: Never Assessed Comments Unknown Sex and Gender Information Value Date Recorded Sex Assigned at Not on file Legal Sex Female 5:22 AM COMPUTER FORENSICS ANALYST Gender Identity Not on file Sexual [...] Resolved 11/04/2013 11/04/2013 8 10:33 AM COMPUTER FORENSICS ANALYST R/O COVID-19 12/25/2019 12/25/2019 12/26/2019 2:46 PM CDT R/O COVID-19 05/09/2020 05/09/2020 05/09/2020 12:1 7 PM COMPUTER FORENSICS ANALYST documented as of this encounter Care Teams Safety Deposit Clerk Relationship Specialty Start Date End Date Dara Tavera FNP [address] [place] [phone] PCP - General NURSE PRACTITIONER 10/13/18 documented as of this encounter
--- OUTSIDE RECORDS SUMMARY | 2025-05-08 18:42 | XMS_ITS | Encounter Summary ---
Author Organization [facility] Address [address] [place] [address] Care Team Providers Care Gill Box Operator Name Role Phone Dara Tavera Primary Care Provider Encounter Details Date Type Department Care Team (Late st Contact Info) Description 05/30/2005 [facility] [address] [place] [address] Social History Tobacco Use Types Packs/Day Years Used Date Smoking Tobacco: Never Assessed Comments Unknown Sex and Gender Information Value Date Recorded Sex Assigned at Not on file Legal Sex Female 5:22 AM PROJECT SPECIALIST Gender Identity Not on file Sexual Orientation Not on file documented as of this encounter Plan of Treatment Not on file documented as of this encounter Visit Diagnoses Not on filedocumented in this encounter Additional Health Concerns Infection Onset Date Last Indicated Resolved Time VRE Comment:Urine 10/30/13 Resolved 11/04/2013 11/04/2013 8 10:33 AM PROJECT SPECIALIST R/O COVID-19 12/25/2019 12/25/2019 12/26/2019 2:46 PM CDT R/O COVID-19 05/09/2020 05/09/2020 05/09/2020 12:1 7 PM PROJECT SPECIALIST documented as of this encounter Care Teams Gill Box Operator Relationship Specialty Start Date End Date Dara Tavera FNP [address] [place] [phone] PCP - General NURSE PRACTITIONER 10/13/18 documented as of this encounter
--- OUTSIDE RECORDS SUMMARY | 2025-05-08 18:42 | XMS_ITS | Encounter Summary ---
Author Organization [facility] Address [address] Attn: [place] [address] Care Team Providers Care Underwriting Support Manager Name Role Phone Dara Tavera Primary Care Provider Encounter Details Date Type Department Care Team ([facility] Contact Info) Description 02/13/2003 Inpatient Historical Oniel Upton MD NO ADDRESS ON FILE ACUTE SCHIZOPHRENIA-CHR (CMS/HCC) (Primary Dx) Social History Tobacco Use Types Packs/Day Years Used Date Smoking Tobacco: Never Assessed Comments Unknown Sex and Gender Information Value Date Recorded Sex Assigned at Not on file Legal Sex Female 5:22 AM MECHANICAL RESEARCH ENGINEER Gender Identity Not on file Sexual Orientation Not on file documented as of this encounter Plan of Treatment Not on file documented as of this encounter Visit Diagnoses Diagnosis Schizophreniform disorder, chronic condition (CMS/HCC)- Primary Schizophreniform disorder, chronic condition documented in this encounter Additional Health Concerns Infection Onset Date Last Indicated Resolved Time VRE Comment:Urine 10/30/13 Resolved 11/04/2013 11/04/2013 8 10:33 AM MECHANICAL RESEARCH ENGINEER R/O COVID-19 12/25/2019 12/25/2019 12/26/2019 2:46 PM CDT R/O COVID-19 05/09/2020 05/09/2020 05/09/2020 12:1 7 PM MECHANICAL RESEARCH ENGINEER documented as of this encounter Care Teams Underwriting Support Manager Relationship Specialty Start Date End Date Dara Tavera FNP [address] [place] [phone] PCP - General NURSE PRACTITIONER 10/13/18 documented as of this encounter
--- OUTSIDE RECORDS SUMMARY | 2025-05-08 18:42 | XMS_ITS | Encounter Summary ---
Author Organization [facility] Address [address] [place] [address] Care Team Providers Care Presentation Team Member Name Role Phone Dara Tavera Primary Care Provider [phone] Encounter Details Date Type Department Care Team (Latest Contact Info) Description 03/21/2005 Outpatient Historical [facility] [address] [place] [address] AMBULANCE, [facility] DEPRESSIVE DISORDER NEC (Primary Dx) Social History Tobacco Use Types Packs/Day Years Used Date Smoking Tobacco: Never Assessed Comments Unknown Sex and Gender Information Value Date Recorded Sex Assigned at Not on file Legal Sex Female 5:22 AM PORTAL ADMINISTRATOR Gender Identity Not on file Sexual Orientation Not on file documented as of this encounter Plan of Treatment Not on file documented as of this encounter Visit Diagnoses Diagnosis Depressive disorder, not elsewhere classified- Primary documented in this encounter Additional Health Concerns Infection Onset Date Last Indicated Resolved Time VRE Comment:Urine 10/30/13 Resolved 11/04/2013 11/04/2013 8 10:33 AM PORTAL ADMINISTRATOR R/O COVID-19 12/25/2019 12/25/2019 12/26/2019 2:46 PM CDT R/O COVID-19 05/09/2020 05/09/2020 05/09/2020 12:1 7 PM PORTAL ADMINISTRATOR documented as of this encounter Care Teams Presentation Team Member Relationship Specialty Start Date End Date Dara Tavera FNP [address] [place] [phone] PCP - General NURSE PRACTITIONER 10/13/18 documented as of this encounter
--- OUTSIDE RECORDS SUMMARY | 2025-05-08 18:42 | XMS_ITS | Encounter Summary ---
Author Organization [facility] Address [address] [place] [address] Care Team Providers Care Health And Nutrition Specialist Name Role Phone Dara Tavera Primary Care Provider Encounter Details Date Type Department Care Team (Latest Contact Info) Description 07/31/2003 Inpatient Historical [facility] Operating Room [address] [place] [address] Hossein Blair MD NO ADDRESS ON FILE FB BLADDER & URETHRA (Primary Dx) Social History Tobacco Use Types Packs/Day Years Used Date Smoking Tobacco: Never Assessed Comments Unknown Sex and Gender Information Value Date Recorded Sex Assigned at Not on file Legal Sex Female 5:22 AM VETERINARY LABORATORY DIAGNOSTICIAN Gender Identity Not on file Sexual Orientation Not on file documented as of this encounter Plan of Treatment Not on file documented as of this encounter Visit Diagnoses Diagnosis Foreign body in bladder and urethra- Primary documented in this encounter Additional Health Concerns Infection Onset Date Last Indicated Resolved Time VRE Comment:Urine 10/30/13 Resolved 11/04/2013 11/04/2013 8 10:33 AM VETERINARY LABORATORY DIAGNOSTICIAN R/O COVID-19 12/25/2019 12/25/2019 12/26/2019 2:46 PM CDT R/O COVID-19 05/09/2020 05/09/2020 05/09/2020 12:1 7 PM VETERINARY LABORATORY DIAGNOSTICIAN documented as of this encounter Care Teams Health And Nutrition Specialist Relationship Specialty Start Date End Date Dara Tavera FNP [address] [place] [address] PCP - General NURSE PRACTITIONER 10/13/18 documented as of this encounter
--- OUTSIDE RECORDS SUMMARY | 2025-05-08 18:42 | XMS_ITS | Encounter Summary ---
Author Organization [facility] Address [address] [place] [address] Care Team Providers Care Food And Drug Research Scientist Name Role Phone Dara Tavera Primary Care Provider [phone] Encounter Details Date Type Department Care Team (Latest Contact Info) Description 03/07/2005 Outpatient Historical [facility] Pain Management Procedures [address] [place] [address] Prasad Carpenter MD NO ADDRESS ON FILE LUMBOSACRAL NEURITIS NOS (Primary Dx) Social History Tobacco Use Types Packs/Day Years Used Date Smoking Tobacco: Never Assessed Comments Unknown Sex and Gender Information Value Date Recorded Sex Assigned at Not on file Legal Sex Female 5:22 AM POSTAL SERVICE WINDOW CLERK Gender Identity Not on file Sexual Orientation Not on file documented as of this encounter Plan of Treatment Not on file documented as of this encounter Visit Diagnoses Diagnosis Thoracic or lumbosacral neuritis or radiculitis, unspecified- Primary documented in this encounter Additional Health Concerns Infection Onset Date Last Indicated Resolved Time VRE Comment:Urine 10/30/13 Resolved 11/04/2013 11/04/2013 8 10:33 AM POSTAL SERVICE WINDOW CLERK R/O COVID-19 12/25/2019 12/25/2019 12/26/2019 2:46 PM CDT R/O COVID-19 05/09/2020 05/09/2020 05/09/2020 12:1 7 PM POSTAL SERVICE WINDOW CLERK documented as of this encounter Care Teams Food And Drug Research Scientist Relationship Specialty Start Date End Date Dara Tavera FNP [address] [place] [address] PCP - General NURSE PRACTITIONER 10/13/18 documented as of this encounter
--- OUTSIDE RECORDS SUMMARY | 2025-05-08 18:42 | XMS_ITS | Encounter Summary ---
Author Organization [facility] Address [address] [place] [address] Care Team Providers Care Automotive Vehicle Inspector Name Role Phone Dara Tavera Primary Care Provider Encounter Details Date Type Department Care Team (Latest Contact Info) Description 08/14/2003 Outpatient Historical [facility] Urology- [address]tr[address], 3rd [place] [address] Hossein Blair MD NO ADDRESS ON FILE FEMALE STRESS INCONTINENCE (Primary Dx) Social History Tobacco Use Types Packs/Day Years Used Date Smoking Tobacco: Never Assessed Comments Unknown Sex and Gender Information Value Date Recorded Sex Assigned at Not on file Legal Sex Female 5:22 AM HYDROGRAPHER Gender Identity Not on file Sexual Orientation Not on file documented as of this encounter Plan of Treatment Not on file documented as of this encounter Visit Diagnoses Diagnosis Female stress incontinence- Primary documented in this encounter Additional Health Concerns Infection Onset Date Last Indicated Resolved Time VRE Comment:Urine 10/30/13 Resolved 11/04/2013 11/04/2013 8 10:33 AM HYDROGRAPHER R/O COVID-19 12/25/2019 12/25/2019 12/26/2019 2:46 PM CDT R/O COVID-19 05/09/2020 05/09/2020 05/09/2020 12:1 7 PM HYDROGRAPHER documented as of this encounter Care Teams Automotive Vehicle Inspector Relationship Specialty Start Date End Date Dara Tavera FNP [address] [place] [address] PCP - General NURSE PRACTITIONER 10/13/18 documented as of this encounter
--- OUTSIDE RECORDS SUMMARY | 2025-05-08 18:42 | XMS_ITS | Encounter Summary ---
Author Organization [facility] Address [address] [place] [address] Care Team Providers Care Diet Assistant Name Role Phone Ayse Dara BERNSTEIN Primary Care Provider Encounter Details Date Type Department Care Team (Latest Contact Info) Description 11/18/2002 Outpatient [facility] N[facility] [place] [phone] Dmitri Vega MD [address] [place] [address] SURGERY FOLLOWUP, UNSPEC (Primary Dx) Social History Tobacco Use Types Packs/Day Years Used Date Smoking Tobacco: Never Assessed Comments Unknown Sex and Gender Information Value Date Recorded Sex Assigned at Not on file Legal Sex Female 5:22 AM ACADEMIC AFFAIRS ASSISTANT Gender Identity Not on file Sexual Orientation Not on file documented as of this encounter Plan of Treatment Not on file documented as of this encounter Visit Diagnoses Diagnosis Follow-up examination, following unspecified surgery- Primary documented in this encounter Additional Health Concerns Infection Onset Date Last Indicated Resolved Time VRE Comment:Urine 10/30/13 Resolved 11/04/2013 11/04/2013 8 10:33 AM ACADEMIC AFFAIRS ASSISTANT R/O COVID-19 12/25/2019 12/25/2019 12/26/2019 2:46 PM CDT R/O COVID-19 05/09/2020 05/09/2020 05/09/2020 12:1 7 PM ACADEMIC AFFAIRS ASSISTANT documented as of this encounter Care Teams Diet Assistant Relationship Specialty Start Date End Date Dara Tavera FNP [address] [place] [phone] PCP - General NURSE PRACTITIONER 10/13/18 documented as of this encounter
--- OUTSIDE RECORDS SUMMARY | 2025-05-08 18:42 | XMS_ITS | Encounter Summary ---
Author Organization [facility] Address [address] [place] [address] Care Team Providers Care Roofing Apprentice Name Role Phone Dara Tavera Primary Care Provider [phone] Encounter Details Date Type Department Care Team (Late st Contact Info) Description 11/04/2003 Outpatient Historical [facility] Behavioral Clinical Services [address] [place] [address] Hood Kerr Jr., MD [address] [place] [address] Social History Tobacco Use Types Packs/Day Years Used Date Smoking Tobacco: Never Assessed Comments Unknown Sex and Gender Information Value Date Recorded Sex Assigned at Not on file Legal Sex Female 5:22 AM MOVIE OPERATOR Gender Identity Not on file Sexual Orientation Not on file documented as of this encounter Plan of Treatment Not on file documented as of this encounter Visit Diagnoses Not on filedocumented in this encounter Additional Health Concerns Infection Onset Date Last Indicated Resolved Time VRE Comment:Urine 10/30/13 Resolved 11/04/2013 11/04/2013 8 10:33 AM MOVIE OPERATOR R/O COVID-19 12/25/2019 12/25/2019 12/26/2019 2:46 PM CDT R/O COVID-19 05/09/2020 05/09/2020 05/09/2020 12:1 7 PM MOVIE OPERATOR documented as of this encounter Care Teams Roofing Apprentice Relationship Specialty Start Date End Date Dara Tavera FNP [address] [place] [phone] PCP - General NURSE PRACTITIONER 10/13/18 documented as of this encounter
--- OUTSIDE RECORDS SUMMARY | 2025-05-08 18:42 | XMS_ITS | Encounter Summary ---
Author Organization [facility] Address [address] [place] [address] Care Team Providers Care Pear Picker Name Role Phone Dara Tavera Primary Care Provider Encounter Details Date Type Department Care Team (Latest Contact Info) Description 05/28/2003 Outpatient [facility] Behavioral Clinical Services [address] [place] [address] Oniel Upton MD NO ADDRESS ON FILE SCHIZOAFFECTIVE-UNSP EC ([facility]/HCC) (Primary Dx) Social History Tobacco Use Types Packs/Day Years Used Date Smoking Tobacco: Never Assessed Comments Unknown Sex and Gender Information Value Date Recorded Sex Assigned at Not on file Legal Sex Female 5:22 AM CORPSMAN Gender Identity Not on file Sexual Orientation Not on file documented as of this encounter Plan of Treatment Not on file documented as of this encounter Visit Diagnoses Diagnosis Schizoaffective disorder, unspecified condition ([facility]/HCC)- Primary Schizoaffective disorder, unspecified condition documented in this encounter Additional Health Concerns Infection Onset Date Last Indicated Resolved Time VRE Comment:Urine 10/30/13 Resolved 11/04/2013 11/04/2013 8 10:33 AM CORPSMAN R/O COVID-19 12/25/2019 12/25/2019 12/26/2019 2:46 PM CDT R/O COVID-19 05/09/2020 05/09/2020 05/09/2020 12:1 7 PM CORPSMAN documented as of this encounter Care Teams Pear Picker Relationship Specialty Start Date End Date Dara Tavera FNP [address] [place] [phone] PCP - General NURSE PRACTITIONER 10/13/18 documented as of this encounter
--- OUTSIDE RECORDS SUMMARY | 2025-05-08 18:42 | XMS_ITS | Encounter Summary ---
Author Organization [facility] Address [address] [place] [address] Care Team Providers Care Invoice Machine Operator Name Role Phone Dara Tavera Primary Care Provider Encounter Details Date Type Department Care Team (Latest Contact Info) Description 08/19/2003 Outpatient Historical [facility] Urology- [address] Entr[address], 3rd [place] [address] Hossein Blair MD NO ADDRESS ON FILE FEMALE STRESS INCONTINENCE (Primary Dx); REMOVAL INT FIXATION DEVICE Social History Tobacco Use Types Packs/Day Years Used Date Smoking Tobacco: Never Assessed Comments Unknown Sex and Gender Information Value Date Recorded Sex Assigned at Not on file Legal Sex Female 5:22 AM SYSTEMS INTEGRATION MANAGER Gender Identity Not on file Sexual [...] 10/30/13 Resolved 11/04/2013 11/04/2013 8 10:33 AM SYSTEMS INTEGRATION MANAGER R/O COVID-19 12/25/2019 12/25/2019 12/26/2019 2:46 PM CDT R/O COVID-19 05/09/2020 05/09/2020 05/09/2020 12:1 7 PM SYSTEMS INTEGRATION MANAGER documented as of this encounter Care Teams Invoice Machine Operator Relationship Specialty Start Date End Date Dara Tavera FNP [address] [place] [phone] PCP - General NURSE PRACTITIONER 10/13/18 documented as of this encounter
--- OUTSIDE RECORDS SUMMARY | 2025-05-08 18:42 | XMS_ITS | Encounter Summary ---
Author Organization [facility] Address [address] [place] [address] Care Team Providers Care Milling Operator Name Role Phone Dara Tavera Primary Care Provider Encounter Details Date Type Department Care Team (Latest Contact Info) Description 12/07/2003 Outpatient Historical [facility] SCHIZOPHRENIA NOS-UNSPEC (CMS/HCC) (Primary Dx) Social History Tobacco Use Types Packs/Day Years Used Date Smoking Tobacco: Never Assessed Comments Unknown Sex and Gender Information Value Date Recorded Sex Assigned at Not on file Legal Sex Female 5:22 AM ELECTROENCEPHALOGRAPHIC TECHNICIAN Gender Identity Not on file Sexual Orientation Not on file documented as of this encounter Plan of Treatment Not on file documented as of this encounter Visit Diagnoses Diagnosis Unspecified schizophrenia, unspecified condition (CMS/HCC)- Primary Unspecified schizophrenia, unspecified condition documented in this encounter Additional Health Concerns Infection Onset Date Last Indicated Resolved Time VRE Comment:Urine 10/30/13 Resolved 11/04/2013 11/04/2013 8 10:33 AM ELECTROENCEPHALOGRAPHIC TECHNICIAN R/O COVID-19 12/25/2019 12/25/2019 12/26/2019 2:46 PM CDT R/O COVID-19 05/09/2020 05/09/2020 05/09/2020 12:1 7 PM ELECTROENCEPHALOGRAPHIC TECHNICIAN documented as of this encounter Care Teams Milling Operator Relationship Specialty Start Date End Date Dara Tavera FNP [address] [place] [phone] PCP - General NURSE PRACTITIONER 10/13/18 documented as of this encounter
--- OUTSIDE RECORDS SUMMARY | 2025-05-08 18:42 | XMS_ITS | Encounter Summary ---
Author Organization [facility] Address [address] [place] [address] Care Team Providers Care Junior Art Director Name Role Phone Dara Tavera Primary Care Provider Encounter Details Date Type Department Care Team (Latest Contact Info) Description 12/01/2003 Outpatient Historical [facility] Urology- [address] Entr[address], 3rd [place] [address] Hossein Blair MD NO ADDRESS ON FILE FEMALE STRESS INCONTINENCE (Primary Dx); ENURESIS NOS Social History Tobacco Use Types Packs/Day Years Used Date Smoking Tobacco: Never Assessed Comments Unknown Sex and Gender Information Value Date Recorded Sex Assigned at Not on file Legal Sex Female 5:22 AM FINISH MILL OPERATOR Gender Identity Not on file Sexual Orientation Not on file documented as of this encounter Plan of Treatment Not on file documented as of this encounter Visit Diagnoses Diagnosis Female stress incontinence- Primary Unspecified urinary incontinence documented in this encounter Additional Health Concerns Infection Onset Date Last Indicated Resolved Time VRE Comment:Urine 10/30/13 Resolved 11/04/2013 11/04/2013 8 10:33 AM FINISH MILL OPERATOR R/O COVID-19 12/25/2019 12/25/2019 12/26/2019 2:46 PM CDT R/O COVID-19 05/09/2020 05/09/2020 05/09/2020 12:1 7 PM FINISH MILL OPERATOR documented as of this encounter Care Teams Junior Art Director Relationship Specialty Start Date End Date Dara Tavera FNP [address] [place] [address] PCP - General NURSE PRACTITIONER 10/13/18 documented as of this encounter
--- OUTSIDE RECORDS SUMMARY | 2025-05-08 18:42 | XMS_ITS | Encounter Summary ---
Author Organization [facility] Address [address] [place] [address] Care Team Providers Care Security Chief Museum Name Role Phone Dara Tavera Primary Care Provider Encounter Details Date Type Department Care Team (Latest Contact Info) Description 09/25/2003 Outpatient Historical [facility] Urology- [address]tr[address], 3rd [place] [address] Hossein Blair MD NO ADDRESS ON FILE URGE & STRESS MIXED INCONTINENCE (Primary Dx) Social History Tobacco Use Types Packs/Day Years Used Date Smoking Tobacco: Never Assessed Comments Unknown Sex and Gender Information Value Date Recorded Sex Assigned at Not on file Legal Sex Female 5:22 AM SHANK PINNER Gender Identity Not on file Sexual Orientation Not on file documented as of this encounter Plan of Treatment Not on file documented as of this encounter Visit Diagnoses Diagnosis Mixed incontinence urge and stress (male)(female)- Primary documented in this encounter Additional Health Concerns Infection Onset Date Last Indicated Resolved Time VRE Comment:Urine 10/30/13 Resolved 11/04/2013 11/04/2013 8 10:33 AM SHANK PINNER R/O COVID-19 12/25/2019 12/25/2019 12/26/2019 2:46 PM CDT R/O COVID-19 05/09/2020 05/09/2020 05/09/2020 12:1 7 PM SHANK PINNER documented as of this encounter Care Teams Security Chief Museum Relationship Specialty Start Date End Date Dara Tavera FNP [address] [place] [phone] PCP - General NURSE PRACTITIONER 10/13/18 documented as of this encounter
--- OUTSIDE RECORDS SUMMARY | 2025-05-08 18:42 | XMS_ITS | Encounter Summary ---
Author Organization [facility] Address [address] [facility] Attn: [place] [address] Care Team Providers Care Shop Assistant Name Role Phone Dara Tavera Primary Care Provider Encounter Details Date Type Department Care Team ([facility] Contact Info) Description 02/25/2002 Outpatient Historical Raúl Osullivan MD [address] [place] [address] Social History Tobacco Use Types Packs/Day Years Used Date Smoking Tobacco: Never Assessed Comments Unknown Sex and Gender Information Value Date Recorded Sex Assigned at Not on file Legal Sex Female 5:22 AM SENIOR DIGITAL DESIGNER Gender Identity Not on file Sexual Orientation Not on file documented as of this encounter Plan of Treatment Not on file documented as of this encounter Visit Diagnoses Not on filedocumented in this encounter Additional Health Concerns Infection Onset Date Last Indicated Resolved Time VRE Comment:Urine 10/30/13 Resolved 11/04/2013 11/04/2013 8 10:33 AM SENIOR DIGITAL DESIGNER R/O COVID-19 12/25/2019 12/25/2019 12/26/2019 2:46 PM CDT R/O COVID-19 05/09/2020 05/09/2020 05/09/2020 12:1 7 PM SENIOR DIGITAL DESIGNER documented as of this encounter Care Teams Shop Assistant Relationship Specialty Start Date End Date Dara Tavera FNP [address] [place] [phone] PCP - General NURSE PRACTITIONER 10/13/18 documented as of this encounter
--- OUTSIDE RECORDS SUMMARY | 2025-05-08 18:42 | XMS_ITS | Encounter Summary ---
Author Organization [facility] Address [address] [place] [address] Care Team Providers Care Personnel Consultant Name Role Phone Dara Tavera Primary Care Provider Encounter Details Date Type Department Care Team (Latest Contact Info) Description 01/25/2005 Outpatient [facility] Oral and Maxillo Surgery[address] [place] [address] Raleigh Bagley, PhD NO ADDRESS ON FILE Tooth eruption disturb (Primary Dx) Social History Tobacco Use Types Packs/Day Years Used Date Smoking Tobacco: Never Assessed Comments Unknown Sex and Gender Information Value Date Recorded Sex Assigned at Not on file Legal Sex Female 5:22 AM LOKIE ENGINEER Gender Identity Not on file Sexual Orientation Not on file documented as of this encounter Plan of Treatment Not on file documented as of this encounter Visit Diagnoses Diagnosis Tooth eruption disturb- Primary Disturbances in tooth eruption documented in this encounter Additional Health Concerns Infection Onset Date Last Indicated Resolved Time VRE Comment:Urine 10/30/13 Resolved 11/04/2013 11/04/2013 8 10:33 AM LOKIE ENGINEER R/O COVID-19 12/25/2019 12/25/2019 12/26/2019 2:46 PM CDT R/O COVID-19 05/09/2020 05/09/2020 05/09/2020 12:1 7 PM LOKIE ENGINEER documented as of this encounter Care Teams Personnel Consultant Relationship Specialty Start Date End Date Dara Tavera FNP [address] [place] [address] PCP - General NURSE PRACTITIONER 10/13/18 documented as of this encounter
--- OUTSIDE RECORDS SUMMARY | 2025-05-08 18:42 | XMS_ITS | Encounter Summary ---
Author Organization [facility] Address [address] [place] [address] Care Team Providers Care Front End Assistant Name Role Phone Daar Tavera Primary Care Provider Encounter Details Date Type Department Care Team (Late st Contact Info) Description 06/10/1997 Outpatient Historical [facility] Chio Lopez MD [address] [place] [phone] Lumbago (Primary Dx) Social History Tobacco Use [...] documented as of this encounter Care Teams Front End Assistant Relationship Specialty Start Date End Date Dara Tavera FNP [address] [place] [address] PCP - General NURSE PRACTITIONER 10/13/18 documented as of this encounter
--- OUTSIDE RECORDS SUMMARY | 2025-05-08 18:42 | XMS_ITS | Encounter Summary ---
Author Organization [facility] Address [address] [place] [address] Care Team Providers Care Circus Roustabout Name Role Phone Dara Tavera Primary Care Provider [phone] Encounter Details Date Type Department Care Team (Latest Contact Info) Description 05/16/2005 Outpatient Historical [facility] Pain Management Procedures [address] [place] [address] Prasad Carpenter MD NO ADDRESS ON FILE DISORDERS OF SACRUM (Primary Dx) Social History Tobacco Use Types Packs/Day Years Used Date Smoking Tobacco: Never Assessed Comments Unknown Sex and Gender Information Value Date Recorded Sex Assigned at Not on file Legal Sex Female 5:22 AM WATER TREATMENT PLANT REPAIRER Gender Identity Not on file Sexual Orientation Not on file documented as of this encounter Plan of Treatment Not on file documented as of this encounter Visit Diagnoses Diagnosis Disorders of sacrum- Primary documented in this encounter Additional Health Concerns Infection Onset Date Last Indicated Resolved Time VRE Comment:Urine 10/30/13 Resolved 11/04/2013 11/04/2013 8 10:33 AM WATER TREATMENT PLANT REPAIRER R/O COVID-19 12/25/2019 12/25/2019 12/26/2019 2:46 PM CDT R/O COVID-19 05/09/2020 05/09/2020 05/09/2020 12:1 7 PM WATER TREATMENT PLANT REPAIRER documented as of this encounter Care Teams Circus Roustabout Relationship Specialty Start Date End Date Dara Tavera FNP [address] [place] [address] PCP - General NURSE PRACTITIONER 10/13/18 documented as of this encounter
--- OUTSIDE RECORDS SUMMARY | 2025-05-08 18:42 | XMS_ITS | Encounter Summary ---
Author Organization [facility] Address [address] [place] [address] Care Team Providers Care Life Science Research Assistant Name Role Phone Dara Tavera Primary Care Provider Encounter Details Date Type Department Care Team (Latest Contact Info) Description 07/28/2003 Outpatient Historical [facility] PreAdmission [address] [place] [address] Hossein Blair MD NO ADDRESS ON FILE PREOP EXAM OTHER SPECIFIED (Primary Dx) Social History Tobacco Use Types Packs/Day Years Used Date Smoking Tobacco: Never Assessed Comments Unknown Sex and Gender Information Value Date Recorded Sex Assigned at Not on file Legal Sex Female 5:22 AM RECREATIONAL COUNSELOR Gender Identity Not on file Sexual Orientation Not on file documented as of this encounter Plan of Treatment Not on file documented as of this encounter Visit Diagnoses Diagnosis Other specified pre-operative examination- Primary documented in this encounter Additional Health Concerns Infection Onset Date Last Indicated Resolved Time VRE Comment:Urine 10/30/13 Resolved 11/04/2013 11/04/2013 8 10:33 AM RECREATIONAL COUNSELOR R/O COVID-19 12/25/2019 12/25/2019 12/26/2019 2:46 PM CDT R/O COVID-19 05/09/2020 05/09/2020 05/09/2020 12:1 7 PM RECREATIONAL COUNSELOR documented as of this encounter Care Teams Life Science Research Assistant Relationship Specialty Start Date End Date Dara Tavera FNP [address] [place] [address] PCP - General NURSE PRACTITIONER 10/13/18 documented as of this encounter
--- OUTSIDE RECORDS SUMMARY | 2025-05-08 18:42 | XMS_ITS | Encounter Summary ---
Author Organization [facility] Address [address] [place] [address] Care Team Providers Care Biomedical Equipment Support Specialist Name Role Phone Dara Tavera Primary Care Provider Encounter Details Date Type Department Care Team (Latest Contact Info) Description 05/22/2003 Outpatient Historical [facility] Urology- [address]tr[address], 3rd [place] [address] Hossein Blair MD NO ADDRESS ON FILE FB bladder/urethra (Primary Dx); URGE & STRESS MIXED INCONTINENCE Social History Tobacco Use Types Packs/Day Years Used Date Smoking Tobacco: Never Assessed Comments Unknown Sex and Gender Information Value Date Recorded Sex Assigned at Not on file Legal Sex Female 5:22 AM INSURANCE PREMIUM AUDITOR Gender Identity Not on file Sexual [...] Resolved 11/04/2013 11/04/2013 8 10:33 AM INSURANCE PREMIUM AUDITOR R/O COVID-19 12/25/2019 12/25/2019 12/26/2019 2:46 PM CDT R/O COVID-19 05/09/2020 05/09/2020 05/09/2020 12:1 7 PM INSURANCE PREMIUM AUDITOR documented as of this encounter Care Teams Biomedical Equipment Support Specialist Relationship Specialty Start Date End Date Dara Tavera FNP [address] [place] [phone] PCP - General NURSE PRACTITIONER 10/13/18 documented as of this encounter
--- OUTSIDE RECORDS SUMMARY | 2025-05-08 18:42 | XMS_ITS | Encounter Summary ---
Author Organization [facility] Address [address] [place] [address] Care Team Providers Care Resource Engineer Name Role Phone Dara Tavera BRIQUETTE MAKER Primary Care Provider Encounter Details Date Type Department Care Team (Latest Contact Info) Description 11/03/2003 Outpatient Historical [facility] Behavioral Clinical Services [address] [place] [address] Hood Kerr Jr., MD [address] [place] [address] SCHIZOAFFECTIVE-UNSP EC (CMS/HCC) (Primary Dx) Social History Tobacco Use Types Packs/Day Years Used Date Smoking Tobacco: Never Assessed Comments Unknown Sex and Gender Information Value Date Recorded Sex Assigned at Not on file Legal Sex Female 5:22 AM LATCHER Gender Identity Not on file Sexual Orientation Not on file documented as of this encounter Plan of Treatment Not on file documented as of this encounter Visit Diagnoses Diagnosis Schizoaffective disorder, unspecified condition (CMS/HCC)- Primary Schizoaffective disorder, unspecified condition documented in this encounter Additional Health Concerns Infection Onset Date Last Indicated Resolved Time VRE Comment:Urine 10/30/13 Resolved 11/04/2013 11/04/2013 8 10:33 AM LATCHER R/O COVID-19 12/25/2019 12/25/2019 12/26/2019 2:46 PM CDT R/O COVID-19 05/09/2020 05/09/2020 05/09/2020 12:1 7 PM LATCHER documented as of this encounter Care Teams Resource Engineer Relationship Specialty Start Date End Date Dara Tavera FNP [address] [place] [phone] PCP - General NURSE PRACTITIONER 10/13/18 documented as of this encounter
--- OUTSIDE RECORDS SUMMARY | 2025-05-08 18:42 | XMS_ITS | Encounter Summary ---
Author Organization [facility] Address [address] [place] [address] Care Team Providers Care Machinist Mechanic Name Role Phone Dara Tavera AMANDEEP Primary Care Provider Encounter Details Date Type Department Care Team (Latest Contact Info) Description 11/04/2002 Outpatient Historical [facility] Ear, Nose and Throat [place] [address] 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
--- OUTSIDE RECORDS SUMMARY | 2025-05-08 18:42 | XMS_ITS | Encounter Summary ---
[facility] Organization [facility] Address [address] [place] [address] Care Team Providers Care Business Reporter Name Role Phone Dara Tavera Primary Care Provider Encounter Details Date Type Department Care Team (Late st Contact Info) Description 07/31/1997 Outpatient Historical [facility] Social History Tobacco Use Types Packs/Day Years Used Date Smoking Tobacco: Never Assessed Comments Unknown Sex and Gender Information Value Date Recorded Sex Assigned at Not on file Legal Sex Female 5:22 AM OPTICAL TECHNICIAN Gender Identity Not on file Sexual Orientation Not on file documented as of this encounter Plan of Treatment Not on file documented as of this encounter Visit Diagnoses Not on filedocumented in this encounter Additional Health Concerns Infection Onset Date Last Indicated Resolved Time VRE Comment:Urine 10/30/13 Resolved 11/04/2013 11/04/2013 8 10:33 AM OPTICAL TECHNICIAN R/O COVID-19 12/25/2019 12/25/2019 12/26/2019 2:46 PM CDT R/O COVID-19 05/09/2020 05/09/2020 05/09/2020 12:1 7 PM OPTICAL TECHNICIAN documented as of this encounter Care Teams Business Reporter Relationship Specialty Start Date End Date Dara Tavera FNP [address] [place] [address] PCP - General NURSE PRACTITIONER 10/13/18 documented as of this encounter
--- OUTSIDE RECORDS SUMMARY | 2025-05-08 18:42 | XMS_ITS | Encounter Summary ---
Author Organization [facility] Address [address] [place] [address] Care Team Providers Care Commissary Production Supervisor Name Role Phone Dara Tavera Primary Care Provider [phone] Encounter Details Date Type Department Care Team (Latest Contact Info) Description 07/24/2003 Outpatient Historical [facility] (Primary Dx) Social History Tobacco Use Types Packs/Day Years Used Date Smoking Tobacco: Never Assessed Comments Unknown Sex and Gender Information Value Date Recorded Sex Assigned at Not on file Legal Sex Female 5:22 AM MACHINE CLOTH MEASURER Gender Identity Not on file Sexual Orientation [...] Resolved 11/04/2013 11/04/2013 8 10:33 AM MACHINE CLOTH MEASURER R/O COVID-19 12/25/2019 12/25/2019 12/26/2019 2:46 PM CDT R/O COVID-19 05/09/2020 05/09/2020 05/09/2020 12:1 7 PM MACHINE CLOTH MEASURER documented as of this encounter Care Teams Commissary Production Supervisor Relationship Specialty Start Date End Date Dara Tavera FNP [address] [place] [address] PCP - General NURSE PRACTITIONER 10/13/18 documented as of this encounter
--- OUTSIDE RECORDS SUMMARY | 2025-05-08 18:42 | XMS_ITS | Encounter Summary ---
Author Organization [facility] Address [address] [place] [address] Care Team Providers Care Industrial Chemicals Supervisor Name Role Phone Dara Tavera [facility] Primary Care Provider Encounter Details Date Type Department Care Team (Latest Contact Info) Description 04/28/2005 Outpatient Historical [facility] Pain Management- [place] [address] [place] [address] Krissy Pickard FNP [address] [place], [place] [address] [address] [place] [address] LUMBAGO (Primary Dx); LUMBOSACRAL NEURITIS NOS; Enthesopathy of hip Social History Tobacco Use Types Packs/Day Years Used Date Smoking Tobacco: Never Assessed Comments Unknown Sex and Gender Information Value Date Recorded Sex Assigned at Not on file Legal Sex Female 5:22 AM EXECUTIVE MANAGER Gender Identity Not on file Sexual [...] 10/30/13 Resolved 11/04/2013 11/04/2013 8 10:33 AM EXECUTIVE MANAGER R/O COVID-19 12/25/2019 12/25/2019 12/26/2019 2:46 PM CDT R/O COVID-19 05/09/2020 05/09/2020 05/09/2020 12:1 7 PM EXECUTIVE MANAGER documented as of this encounter Care Teams Industrial Chemicals Supervisor Relationship Specialty Start Date End Date Dara Tavera FNP [address] [place] [address] PCP - General NURSE PRACTITIONER 10/13/18 documented as of this encounter
--- OUTSIDE RECORDS SUMMARY | 2025-05-08 18:42 | XMS_ITS | Encounter Summary ---
Author Organization [facility] Address [address] [place] [address] Care Team Providers Care Profiling Machine Operator Name Role Phone Dara Tavera MANAGER SIX SIGMA Primary Care Provider Encounter Details Date Type Department Care Team (Latest Contact Info) Description 12/04/2003 Outpatient Historical [facility] Behavioral Clinical Services [address] [place] [address] Hood Kerr Jr., MD [address] [place] [address] SCHIZOAFFECTIVE-UNSP EC (CMS/HCC) (Primary Dx) Social History Tobacco Use Types Packs/Day Years Used Date Smoking Tobacco: Never Assessed Comments Unknown Sex and Gender Information Value Date Recorded Sex Assigned at Not on file Legal Sex Female 5:22 AM OUTPLACEMENT CONSULTANT Gender Identity Not on file Sexual Orientation Not on file documented as of this encounter Plan of Treatment Not on file documented as of this encounter Visit Diagnoses Diagnosis Schizoaffective disorder, unspecified condition (CMS/HCC)- Primary Schizoaffective disorder, unspecified condition documented in this encounter Additional Health Concerns Infection Onset Date Last Indicated Resolved Time VRE Comment:Urine 10/30/13 Resolved 11/04/2013 11/04/2013 8 10:33 AM OUTPLACEMENT CONSULTANT R/O COVID-19 12/25/2019 12/25/2019 12/26/2019 2:46 PM CDT R/O COVID-19 05/09/2020 05/09/2020 05/09/2020 12:1 7 PM OUTPLACEMENT CONSULTANT documented as of this encounter Care Teams Profiling Machine Operator Relationship Specialty Start Date End Date Dara Tavera FNP [address] [place] [address] PCP - General NURSE PRACTITIONER 10/13/18 documented as of this encounter
--- OUTSIDE RECORDS SUMMARY | 2025-05-08 18:42 | XMS_ITS | Encounter Summary ---
Author Organization [facility] Address [address] [place] [address] Care Team Providers Care Tile Edger Name Role Phone Dara Tavera Primary Care Provider Encounter Details Date Type Department Care Team (Latest Contact Info) Description 02/24/2005 Outpatient Historical [facility] [address] [facility] [address] [place] [address] Prasad Carpenter MD NO ADDRESS ON FILE LUMB/LUMBOSAC DISC DEGEN (Primary Dx) Social History Tobacco Use Types Packs/Day Years Used Date Smoking Tobacco: Never Assessed Comments Unknown Sex and Gender Information Value Date Recorded Sex Assigned at Not on file Legal Sex Female 5:22 AM INDUSTRIAL WELDER Gender Identity Not on file Sexual Orientation Not on file documented as of this encounter Plan of Treatment Not on file documented as of this encounter Visit Diagnoses Diagnosis Degeneration of lumbar or lumbosacral intervertebral disc- Primary documented in this encounter Additional Health Concerns Infection Onset Date Last Indicated Resolved Time VRE Comment:Urine 10/30/13 Resolved 11/04/2013 11/04/2013 8 10:33 AM INDUSTRIAL WELDER R/O COVID-19 12/25/2019 12/25/2019 12/26/2019 2:46 PM CDT R/O COVID-19 05/09/2020 05/09/2020 05/09/2020 12:1 7 PM INDUSTRIAL WELDER documented as of this encounter Care Teams Tile Edger Relationship Specialty Start Date End Date Dara Tavera FNP [address] [place] [phone] PCP - General NURSE PRACTITIONER 10/13/18 documented as of this encounter
--- OUTSIDE RECORDS SUMMARY | 2025-05-08 18:42 | XMS_ITS | Encounter Summary ---
Author Organization [facility] Address [address] [place] [address] Care Team Providers Care Process Designer Name Role Phone Dara Tavera Primary Care Provider Encounter Details Date Type Department Care Team (Latest Contact Info) Description 05/16/2005 Outpatient Historical [facility] Pain Management- [place] [address] [place] [address] Prasad Carpenter MD NO ADDRESS ON FILE DISORDERS OF SACRUM (Primary Dx); LUMBAGO Social History Tobacco Use Types Packs/Day Years Used Date Smoking Tobacco: Never Assessed Comments Unknown Sex and Gender Information Value Date Recorded Sex Assigned at Not on file Legal Sex Female 5:22 AM TELEVISION JOURNALIST Gender Identity Not on file Sexual Orientation Not on file documented as of this encounter Plan of Treatment Not on file documented as of this encounter Visit Diagnoses Diagnosis Disorders of sacrum- Primary Lumbago documented in this encounter Additional Health Concerns Infection Onset Date Last Indicated Resolved Time VRE Comment:Urine 10/30/13 Resolved 11/04/2013 11/04/2013 8 10:33 AM TELEVISION JOURNALIST R/O COVID-19 12/25/2019 12/25/2019 12/26/2019 2:46 PM CDT R/O COVID-19 05/09/2020 05/09/2020 05/09/2020 12:1 7 PM TELEVISION JOURNALIST documented as of this encounter Care Teams Process Designer Relationship Specialty Start Date End Date Dara Tavera FNP [address] [place] [address] PCP - General NURSE PRACTITIONER 10/13/18 documented as of this encounter
--- OUTSIDE RECORDS SUMMARY | 2025-05-08 18:42 | XMS_ITS | Encounter Summary ---
Author Organization [facility] Address [address] [facility] [address] [place]: [place] [address] Care Team Providers Care Camp Program Director Name Role Phone Dara Tavera Primary Care Provider Encounter Details Date Type Department Care Team ([facility] st Contact Info) Description 11/25/1999 Outpatient Historical [facility] [place] [facility], [address] [place] [id number] Social History Tobacco Use Types Packs/Day Years Used Date Smoking Tobacco: Never Assessed Comments Unknown Sex and Gender Information Value Date Recorded Sex Assigned at Not on file Legal Sex Female 5:22 AM AIRWAYS OPERATIONS SPECIALIST Gender Identity Not on file Sexual Orientation Not on file documented as of this encounter Plan of Treatment Not on file documented as of this encounter Visit Diagnoses Not on filedocumented in this encounter Additional Health Concerns Infection Onset Date Last Indicated Resolved Time VRE Comment:Urine 10/30/13 Resolved 11/04/2013 11/04/2013 8 10:33 AM AIRWAYS OPERATIONS SPECIALIST R/O COVID-19 12/25/2019 12/25/2019 12/26/2019 2:46 PM CDT R/O COVID-19 05/09/2020 05/09/2020 05/09/2020 12:1 7 PM AIRWAYS OPERATIONS SPECIALIST documented as of this encounter Care Teams Camp Program Director Relationship Specialty Start Date End Date Dara Tavera FNP [address] [place] [phone] PCP - General NURSE PRACTITIONER 10/13/18 documented as of this encounter
--- OUTSIDE RECORDS SUMMARY | 2025-05-08 18:42 | XMS_ITS | Encounter Summary ---
Author Organization [facility] Address [address] [place] [address] Care Team Providers Care Mat Worker Name Role Phone Dara Tavera Primary Care Provider Encounter Details Date Type Department Care Team (Latest Contact Info) Description 08/08/[address] [facility] Urology- [address], 3rd [place] [address] Hossein Blair MD NO ADDRESS ON FILE URGE & STRESS MIXED INCONTINENCE (Primary Dx) Social History Tobacco Use Types Packs/Day Years Used Date Smoking Tobacco: Never Assessed Comments Unknown Sex and Gender Information Value Date Recorded Sex Assigned at Not on file Legal Sex Female 5:22 AM WILDERNESS GUIDE Gender Identity Not on file Sexual Orientation Not on file documented as of this encounter Plan of Treatment Not on file documented as of this encounter Visit Diagnoses Diagnosis Mixed incontinence urge and stress (male)(female)- Primary documented in this encounter Additional Health Concerns Infection Onset Date Last Indicated Resolved Time VRE Comment:Urine 10/30/13 Resolved 11/04/2013 11/04/2013 8 10:33 AM WILDERNESS GUIDE R/O COVID-19 12/25/2019 12/25/2019 12/26/2019 2:46 PM CDT R/O COVID-19 05/09/2020 05/09/2020 05/09/2020 12:1 7 PM WILDERNESS GUIDE documented as of this encounter Care Teams Mat Worker Relationship Specialty Start Date End Date Dara Tavera FNP [address] [place] [phone] PCP - General NURSE PRACTITIONER 10/13/18 documented as of this encounter
--- OUTSIDE RECORDS SUMMARY | 2025-05-08 18:42 | XMS_ITS | Encounter Summary ---
Author Organization [facility] Address [address] [place] [address] Care Team Providers Care Mixer Driver Name Role Phone Dara Tavera AMANDEEP Primary Care Provider Encounter Details Date Type Department Care Team (Latest Contact Info) Description 02/24/2005 Outpatient Historical [facility] Pain Management- [place] [address] [place] [address] Prasad Carpenter MD NO ADDRESS ON FILE OTHER BACK SYMPTOMS (Primary Dx); LUMB/LUMBOSAC DISC DEGEN; LUMBAGO; Lumbosacral spondylosis Social History Tobacco Use Types Packs/Day Years Used Date Smoking Tobacco: Never Assessed Comments Unknown Sex and Gender Information Value Date Recorded Sex Assigned at Not on file Legal Sex Female 5:22 AM OCCUPATIONAL NURSE Gender Identity Not on file Sexual [...] 10/30/13 Resolved 11/04/2013 11/04/2013 8 10:33 AM OCCUPATIONAL NURSE R/O COVID-19 12/25/2019 12/25/2019 12/26/2019 2:46 PM CDT R/O COVID-19 05/09/2020 05/09/2020 05/09/2020 12:1 7 PM OCCUPATIONAL NURSE documented as of this encounter Care Teams Mixer Driver Relationship Specialty Start Date End Date Dara Tavera FNP [address] [place] [phone] PCP - General NURSE PRACTITIONER 10/13/18 documented as of this encounter
--- OUTSIDE RECORDS SUMMARY | 2025-05-08 18:42 | XMS_ITS | Encounter Summary ---
Author Organization [facility] Address [address] [place] [address] Care Team Providers Care Pulmonary Function Technologist Name Role Phone Dara Tavera NAVAL ARCHITECT SPECIALIST Primary Care Provider Encounter Details Date Type Department Care Team (Latest Contact Info) Description 10/04/2003 Outpatient Historical [facility] Behavioral Clinical Services [address] [place] [address] Hood Kerr Jr., MD [address] [place] [address] SCHIZOAFFECTIVE-UNSP EC (CMS/HCC) (Primary Dx) Social History Tobacco Use Types Packs/Day Years Used Date Smoking Tobacco: Never Assessed Comments Unknown Sex and Gender Information Value Date Recorded Sex Assigned at Not on file Legal Sex Female 5:22 AM PRODUCTION INTERNSHIP Gender Identity Not on file Sexual Orientation Not on file documented as of this encounter Plan of Treatment Not on file documented as of this encounter Visit Diagnoses Diagnosis Schizoaffective disorder, unspecified condition (CMS/HCC)- Primary Schizoaffective disorder, unspecified condition documented in this encounter Additional Health Concerns Infection Onset Date Last Indicated Resolved Time VRE Comment:Urine 10/30/13 Resolved 11/04/2013 11/04/2013 8 10:33 AM PRODUCTION INTERNSHIP R/O COVID-19 12/25/2019 12/25/2019 12/26/2019 2:46 PM CDT R/O COVID-19 05/09/2020 05/09/2020 05/09/2020 12:1 7 PM PRODUCTION INTERNSHIP documented as of this encounter Care Teams Pulmonary Function Technologist Relationship Specialty Start Date End Date Dara Tavera FNP [address] [place] [phone] PCP - General NURSE PRACTITIONER 10/13/18 documented as of this encounter
--- OUTSIDE RECORDS SUMMARY | 2025-05-08 18:42 | XMS_ITS | Encounter Summary ---
Author Organization [facility] Address [address] [place] [address] Care Team Providers Care Senior Care Assistant Name Role Phone Dara Tavera PEANUT GRADER Primary Care Provider Encounter Details Date Type Department Care Team (Latest Contact Info) Description 02/10/2005 Outpatient Historical [facility] Medicine [place] [address] [facility] [address] [place] [address] Faiza Petersen MD NO ADDRESS ON FILE ALLERGIC RHINITIS NOS (Primary Dx); HEADACHE; AFTERCARE MINES SAFETY ENGINEER USE MEDICATN; CONVULSIONS NEC ([facility]) Social History Tobacco Use Types Packs/Day Years Used Date Smoking Tobacco: Never Assessed Comments Unknown Sex and Gender Information Value Date Recorded Sex Assigned at Not on file Legal Sex Female 5:22 AM MUSIC CRITIC Gender Identity Not on file Sexual Orientation [...] Resolved 11/04/2013 11/04/2013 8 10:33 AM MUSIC CRITIC R/O COVID-19 12/25/2019 12/25/2019 12/26/2019 2:46 PM CDT R/O COVID-19 05/09/2020 05/09/2020 05/09/2020 12:1 7 PM MUSIC CRITIC documented as of this encounter Care Teams Senior Care Assistant Relationship Specialty Start Date End Date Dara Tavera FNP [address] [place] [phone] PCP - General NURSE PRACTITIONER 10/13/18 documented as of this encounter
--- OUTSIDE RECORDS SUMMARY | 2025-05-08 18:42 | XMS_ITS | Encounter Summary ---
Author Organization [facility] Address [address] [place] [address] Care Team Providers Care Farm Equipment Maintenance Supervisor Name Role Phone Dara Tavera Primary Care Provider Encounter Details Date Type Department Care Team (Latest Contact Info) Description 01/14/2005 Outpatient Historical [facility] [address] [place] [address] Faiza Petersen MD NO ADDRESS ON FILE LUMBAGO (Primary Dx); NEURALGIA/NEURITIS NOS Social History Tobacco Use Types Packs/Day Years Used Date Smoking Tobacco: Never Assessed Comments Unknown Sex and Gender Information Value Date Recorded Sex Assigned at Not on file Legal Sex Female 5:22 AM SEARCH MARKETING ANALYST Gender Identity Not on file Sexual Orientation Not on file documented as of this encounter Plan of Treatment Not on file documented as of this encounter Visit Diagnoses Diagnosis Lumbago- Primary Neuralgia, neuritis, and radiculitis, unspecified documented in this encounter Additional Health Concerns Infection Onset Date Last Indicated Resolved Time VRE Comment:Urine 10/30/13 Resolved 11/04/2013 11/04/2013 8 10:33 AM SEARCH MARKETING ANALYST R/O COVID-19 12/25/2019 12/25/2019 12/26/2019 2:46 PM CDT R/O COVID-19 05/09/2020 05/09/2020 05/09/2020 12:1 7 PM SEARCH MARKETING ANALYST documented as of this encounter Care Teams Farm Equipment Maintenance Supervisor Relationship Specialty Start Date End Date Dara Tavera FNP [address] [place] [phone] PCP - General NURSE PRACTITIONER 10/13/18 documented as of this encounter
--- OUTSIDE RECORDS SUMMARY | 2025-05-08 18:42 | XMS_ITS | Encounter Summary ---
Author Organization [facility] Address [address] [place] [address] Care Team Providers Care Senior Product Engineer Name Role Phone Dara Tavera AMANDEEP Primary Care Provider Encounter Details Date Type Department Care Team (Latest Contact Info) Description 09/24/2002 Outpatient Historical [facility] Ear, Nose and Throat [address] [place] [address] [place] [address] Dmitri Vega MD [address] [place] [address] Leukoplakia oral mucosa (Primary Dx) Social History Tobacco Use Types Packs/Day Years Used Date Smoking Tobacco: Never Assessed Comments Unknown Sex and Gender Information Value Date Recorded Sex Assigned at Not on file Legal Sex Female 5:22 AM STEAM PLANT OPERATOR Gender Identity Not on file [...] 10/30/13 Resolved 11/04/2013 11/04/2013 8 10:33 AM STEAM PLANT OPERATOR R/O COVID-19 12/25/2019 12/25/2019 12/26/2019 2:46 PM CDT R/O COVID-19 05/09/2020 05/09/2020 05/09/2020 12:1 7 PM STEAM PLANT OPERATOR documented as of this encounter Care Teams Senior Product Engineer Relationship Specialty Start Date End Date Dara Tavera FNP [address] [place] [phone] PCP - General NURSE PRACTITIONER 10/13/18 documented as of this encounter
--- OUTSIDE RECORDS SUMMARY | 2025-05-08 18:42 | XMS_ITS | Encounter Summary ---
Author Organization [facility] Address [address] [place] [address] Care Team Providers Care Quarry Extraction Worker Name Role Phone Dara Tavera Primary Care Provider Encounter Details Date Type Department Care Team (Late st Contact Info) Description 07/16/2003 Outpatient [facility] Imaging and Laboratory Services [address] [place] [address] Hossein Blair MD NO ADDRESS ON FILE BLADDER DISORDER NEC (Primary Dx) Social History Tobacco Use Types Packs/Day Years Used Date Smoking Tobacco: Never Assessed Comments Unknown Sex and Gender Information Value Date Recorded Sex Assigned at Not on file Legal Sex Female 5:22 AM MANUFACTURING MACHINE OPERATOR Gender Identity Not on file Sexual Orientation Not on file documented as of this encounter Plan of Treatment Not on file documented as of this encounter Visit Diagnoses Diagnosis Other specified disorder of bladder- Primary documented in this encounter Additional Health Concerns Infection Onset Date Last Indicated Resolved Time VRE Comment:Urine 10/30/13 Resolved 11/04/2013 11/04/2013 8 10:33 AM MANUFACTURING MACHINE OPERATOR R/O COVID-19 12/25/2019 12/25/2019 12/26/2019 2:46 PM CDT R/O COVID-19 05/09/2020 05/09/2020 05/09/2020 12:1 7 PM MANUFACTURING MACHINE OPERATOR documented as of this encounter Care Teams Quarry Extraction Worker Relationship Specialty Start Date End Date Dara Tavera FNP [address] [place] [address] PCP - General NURSE PRACTITIONER 10/13/18 documented as of this encounter
--- OUTSIDE RECORDS SUMMARY | 2025-05-08 18:42 | XMS_ITS | Encounter Summary ---
Author Organization [facility] Address [address] [facility] Attn: [place] [address] Care Team Providers Care Vest Busheler Name Role Phone Dara Tavera AMANDEEP Primary Care Provider Encounter Details Date Type Department Care Team (Late st Contact Info) Description 05/02/2003 Inpatient Historical Hood Kerr Jr., MD [address] [facility] [place] [address] SCHIZOAFF-SUBCHR/EXACER (CMS/[facility]) (Primary Dx) Social History Tobacco Use Types Packs/Day Years Used Date Smoking Tobacco: Never Assessed Comments Unknown Sex and Gender Information Value Date Recorded Sex Assigned at Not on file Legal Sex Female 5:22 AM WATER RESOURCE CONSULTANT Gender Identity Not on file Sexual [...] Resolved 11/04/2013 11/04/2013 8 10:33 AM WATER RESOURCE CONSULTANT R/O COVID-19 12/25/2019 12/25/2019 12/26/2019 2:46 PM CDT R/O COVID-19 05/09/2020 05/09/2020 05/09/2020 12:1 7 PM WATER RESOURCE CONSULTANT documented as of this encounter Care Teams Vest Busheler Relationship Specialty Start Date End Date Dara Tavera FNP [address] [place] [address] PCP - General NURSE PRACTITIONER 10/13/18 documented as of this encounter
--- OUTSIDE RECORDS SUMMARY | 2025-05-08 18:42 | XMS_ITS | Encounter Summary ---
Author Organization [facility] Address [address] [place] [address] Care Team Providers Care Carburetor Rebuilder Name Role Phone Dara Tavera Primary Care Provider [phone] Encounter Details Date Type Department Care Team (Late st Contact Info) Description 12/05/2003 Outpatient Historical [facility] Behavioral Clinical Services [address] [place] [address] Hood Kerr Jr., MD [address] [place] [address] Social History Tobacco Use Types Packs/Day Years Used Date Smoking Tobacco: Never Assessed Comments Unknown Sex and Gender Information Value Date Recorded Sex Assigned at Not on file Legal Sex Female 5:22 AM HAND TRIMMER Gender Identity Not on file Sexual Orientation Not on file documented as of this encounter Plan of Treatment Not on file documented as of this encounter Visit Diagnoses Not on filedocumented in this encounter Additional Health Concerns Infection Onset Date Last Indicated Resolved Time VRE Comment:Urine 10/30/13 Resolved 11/04/2013 11/04/2013 8 10:33 AM HAND TRIMMER R/O COVID-19 12/25/2019 12/25/2019 12/26/2019 2:46 PM CDT R/O COVID-19 05/09/2020 05/09/2020 05/09/2020 12:1 7 PM HAND TRIMMER documented as of this encounter Care Teams Carburetor Rebuilder Relationship Specialty Start Date End Date Dara Tavera FNP [address] [place] [phone] PCP - General NURSE PRACTITIONER 10/13/18 documented as of this encounter
--- OUTSIDE RECORDS SUMMARY | 2025-05-08 18:42 | XMS_ITS | Encounter Summary ---
Author Organization [facility] Address [address] [place] [address] Care Team Providers Care Cable Rigger Name Role Phone Dara Tavera AMANDEEP Primary Care Provider Encounter Details Date Type Department Care Team (Latest Contact Info) Description 03/07/2005 Outpatient Historical [facility] [address] [place] [address] Prasad Carpenter MD NO ADDRESS ON FILE Lumbosacral spondylosis (Primary Dx); LUMBAGO; LUMB/LUMBOSAC DISC DEGEN; OTHER BACK SYMPTOMS Social History Tobacco Use Types Packs/Day Years Used Date Smoking Tobacco: Never Assessed Comments Unknown Sex and Gender Information Value Date Recorded Sex Assigned at Not on file Legal Sex Female 5:22 AM LAW LIBRARIAN Gender Identity Not on file Sexual Orientation [...] 10/30/13 Resolved 11/04/2013 11/04/2013 8 10:33 AM LAW LIBRARIAN R/O COVID-19 12/25/2019 12/25/2019 12/26/2019 2:46 PM CDT R/O COVID-19 05/09/2020 05/09/2020 05/09/2020 12:1 7 PM LAW LIBRARIAN documented as of this encounter Care Teams Cable Rigger Relationship Specialty Start Date End Date Dara Tavrea FNP [address] [place] [phone] PCP - General NURSE PRACTITIONER 10/13/18 documented as of this encounter
--- OUTSIDE RECORDS SUMMARY | 2025-05-08 18:42 | XMS_ITS | Encounter Summary ---
Author Organization [facility] Address [address] [place] [address] Care Team Providers Care Hemstitcher Name Role Phone Dara Tavera Primary Care Provider [phone] Encounter Details Date Type Department Care Team (Late st Contact Info) Description 02/22/2005 Outpatient Historical [facility] Faiza Petersen MD NO ADDRESS ON FILE Social History Tobacco Use Types Packs/Day Years Used Date Smoking Tobacco: Never Assessed Comments Unknown Sex and Gender Information Value Date Recorded Sex Assigned at Not on file Legal Sex Female 5:22 AM HIGH SCHOOL SCIENCE TUTOR Gender Identity Not on file Sexual Orientation Not on file documented as of this encounter Plan of Treatment Not on file documented as of this encounter Visit Diagnoses Not on filedocumented in this encounter Additional Health Concerns Infection Onset Date Last Indicated Resolved Time VRE Comment:Urine 10/30/13 Resolved 11/04/2013 11/04/2013 8 10:33 AM HIGH SCHOOL SCIENCE TUTOR R/O COVID-19 12/25/2019 12/25/2019 12/26/2019 2:46 PM CDT R/O COVID-19 05/09/2020 05/09/2020 05/09/2020 12:1 7 PM HIGH SCHOOL SCIENCE TUTOR documented as of this encounter Care Teams Hemstitcher Relationship Specialty Start Date End Date Dara Tavera FNP [address] [place] [phone] PCP - General NURSE PRACTITIONER 10/13/18 documented as of this encounter
--- OUTSIDE RECORDS SUMMARY | 2025-05-08 18:42 | XMS_ITS | Encounter Summary ---
Author Organization [facility] Address [address] [place] [address] Care Team Providers Care Meal Room Hand Name Role Phone Dara Tavera Primary Care Provider Encounter Details Date Type Department Care Team (Latest Contact Info) Description 03/07/2019 Ancillary Orders [facility] Centralized Scheduling [address] [place] [address] Dara Tavera FNP [address] [place] [address] Screening breast examination Social History Tobacco Use Types Packs/Day Years Used Date Smoking Tobacco: Every Day Cigarettes Smokeless Tobacco: Never Comments:2 cigarettes daily Alcohol Use Standard Drinks/Week Comments No 0 (1 standard drink = 0.6 oz pur e alcohol) Comments No Sex and Gender Information Value Date Recorded Sex Assigned at Not on file Legal Sex Female 5:22 AM PLASTIC DOLLS MOLD FILLER Gender Identity Not on file Sexual [...] 05/09/2020 05/09/2020 05/09/2020 12:1 7 PM PLASTIC DOLLS MOLD FILLER documented as of this encounter Care Teams Meal Room Hand Relationship Specialty Start Date End Date Dara Tavera FNP [address] [place] [phone] PCP - General NURSE PRACTITIONER 10/13/18 documented as of this encounter
--- OUTSIDE RECORDS SUMMARY | 2025-05-08 18:42 | XMS_ITS | Encounter Summary ---
Author Organization [facility] Address [address] [place] [address] Care Team Providers Care Special Education Para Professional Name Role Phone Dara Tavera Primary Care Provider Encounter Details Date Type Department Care Team (Late st Contact Info) Description 02/22/2005 Outpatient Historical [facility] [address] [facility] [address] [place] [address] Social History Tobacco Use Types Packs/Day Years Used Date Smoking Tobacco: Never Assessed Comments Unknown Sex and Gender Information Value Date Recorded Sex Assigned at Not on file Legal Sex Female 5:22 AM MANAGER MEETING Gender Identity Not on file Sexual Orientation Not on file documented as of this encounter Plan of Treatment Not on file documented as of this encounter Visit Diagnoses Not on filedocumented in this encounter Additional Health Concerns Infection Onset Date Last Indicated Resolved Time VRE Comment:Urine 10/30/13 Resolved 11/04/2013 11/04/2013 8 10:33 AM MANAGER MEETING R/O COVID-19 12/25/2019 12/25/2019 12/26/2019 2:46 PM CDT R/O COVID-19 05/09/2020 05/09/2020 05/09/2020 12:1 7 PM MANAGER MEETING documented as of this encounter Care Teams Special Education Para Professional Relationship Specialty Start Date End Date Dara Tavera FNP [address] [place] [phone] PCP - General NURSE PRACTITIONER 10/13/18 documented as of this encounter
--- OUTSIDE RECORDS SUMMARY | 2025-05-08 18:43 | XMS_ITS | Encounter Summary ---
Author Organization [facility] Address [address] [place] [address] Care Team Providers Care Medical Service Technician Name Role Phone Dara Tavera AMANDEEP Primary Care Provider Encounter Details Date Type Department Care Team (Late st Contact Info) Description 07/20/2007 Emergency [facility] Emergency Department [address] [place] [address] Ed, Physician NO ADDRESS ON FILE Jorge Danielson III G, DO NO ADDRESS ON FILE Social History Tobacco Use Types Packs/Day Years Used Date Smoking Tobacco: Never Assessed Comments Unknown Sex and Gender Information Value Date Recorded Sex Assigned at Not on file Legal Sex Female 5:22 AM AIRPLANE CABIN ATTENDANT Gender Identity Not on file Sexual Orientation Not on file documented as of this encounter Plan of Treatment Not on file documented as of this encounter Procedures Procedure Name Priority Date/Time Associated Diagnosis Comments URINALYSIS W/REFLEX MICROSCOPIC Routine 07/21/2007 1:27 AM AIRPLANE CABIN ATTENDANT XR ABDOMEN 1 VW Stat 07/21/2007 1:21 AM AIRPLANE CABIN ATTENDANT documented in this encounter Results * URINALYSIS (07/21/2007 1:27 AM AIRPLANE CABIN ATTENDANT) COLOR UA Yellow Straw INTERFACE SYSTEM CLARITY [...] No No INTERFACE SYSTEM 07/21/2007 1:27 AM AIRPLANE CABIN ATTENDANT Jorge Colinegers III, DO URINE ORDERABLES Edited INTERFACE SYSTEM Refer to clinic/hospital department * XR ABDOMEN 1 VW (07/21/2007 1:21 AM AIRPLANE CABIN ATTENDANT) Anatomical Region Laterality Modality Abdomen Other 07/21/2007 1:21 AM AIRPLANE CABIN ATTENDANT Narrative 07/21/2007 1:21 AM AIRPLANE CABIN ATTENDANT Surgical clips are present in the gallbladder [...] Resolved 11/04/2013 11/04/2013 8 10:33 AM AIRPLANE CABIN ATTENDANT R/O COVID-19 12/25/2019 12/25/2019 12/26/2019 2:46 PM CDT R/O COVID-19 05/09/2020 05/09/2020 05/09/2020 12:1 7 PM AIRPLANE CABIN ATTENDANT documented as of this encounter Care Teams Medical Service Technician Relationship Specialty Start Date End Date Dara Tavera FNP [address] [place] [address] PCP - General NURSE PRACTITIONER 10/13/18 documented as of this encounter
--- OUTSIDE RECORDS SUMMARY | 2025-05-08 18:43 | XMS_ITS | Encounter Summary ---
Author Organization [facility] Address [address] [place] [address] Care Team Providers Care Manager Latin Name Role Phone Dara Tavera Primary Care Provider Encounter Details Date Type Department Care Team (Late st Contact Info) Description 08/11/2007 Emergency [facility] Emergency Department [address] [place] [address] Ed, Physician NO ADDRESS ON FILE Social History Tobacco Use Types Packs/Day Years Used Date Smoking Tobacco: Never Assessed Comments Unknown Sex and Gender Information Value Date Recorded Sex Assigned at Not on file Legal Sex Female 5:22 AM POLICE ARTIST Gender Identity Not on file Sexual Orientation Not on file documented as of this encounter Plan of Treatment Not on file documented as of this encounter Visit Diagnoses Not on filedocumented in this encounter Additional Health Concerns Infection Onset Date Last Indicated Resolved Time VRE Comment:Urine 10/30/13 Resolved 11/04/2013 11/04/2013 8 10:33 AM POLICE ARTIST R/O COVID-19 12/25/2019 12/25/2019 12/26/2019 2:46 PM CDT R/O COVID-19 05/09/2020 05/09/2020 05/09/2020 12:1 7 PM POLICE ARTIST documented as of this encounter Care Teams Manager Latin Relationship Specialty Start Date End Date Dara Tavera FNP [address] [place] [phone] PCP - General NURSE PRACTITIONER 10/13/18 documented as of this encounter
--- OUTSIDE RECORDS SUMMARY | 2025-05-08 18:43 | XMS_ITS | Encounter Summary ---
Author Organization [facility] Address [address] [place] [address] Care Team Providers Care Weight Trainer Name Role Phone Dara Tavera Primary Care Provider Encounter Details Date Type Department Care Team (Late st Contact Info) Description 08/06/2007 Outpatient [facility] [address] [place] [address] Tej Will MD [address] [address] Social History Tobacco Use Types Packs/Day Years Used Date Smoking Tobacco: Never Assessed Comments Unknown Sex and Gender Information Value Date Recorded Sex Assigned at Not on file Legal Sex Female 5:22 AM CIGARETTE MACHINE OPERATOR Gender Identity Not on file Sexual Orientation Not on file documented as of this encounter Plan of Treatment Not on file documented as of this encounter Visit Diagnoses Not on filedocumented in this encounter Additional Health Concerns Infection Onset Date Last Indicated Resolved Time VRE Comment:Urine 10/30/13 Resolved 11/04/2013 11/04/2013 8 10:33 AM CIGARETTE MACHINE OPERATOR R/O COVID-19 12/25/2019 12/25/2019 12/26/2019 2:46 PM CDT R/O COVID-19 05/09/2020 05/09/2020 05/09/2020 12:1 7 PM CIGARETTE MACHINE OPERATOR documented as of this encounter Care Teams Weight Trainer Relationship Specialty Start Date End Date Dara Tavera FNP [address] [place] [phone] PCP - General NURSE PRACTITIONER 10/13/18 documented as of this encounter
--- OUTSIDE RECORDS SUMMARY | 2025-05-08 18:43 | XMS_ITS | Encounter Summary ---
Author Organization [facility] Address [address] [place] [address] Care Team Providers Care Teacher Vocal Name Role Phone Dara Tavera AMANDEEP Primary Care Provider Encounter Details Date Type Department Care Team (Latest Contact Info) Description 02/28/2008 Outpatient Historical [facility] [address] [place] [address] AMBULANCE, [facility] Blood in Stool; Nausea Alone; Unspecified Asthma; [...] on file Legal Sex Female 5:22 AM MEDICARE NURSE Gender Identity Not on file Sexual [...] 10/30/13 Resolved 11/04/2013 11/04/201307/26/201 8 10:33 AM MEDICARE NURSE R/O COVID-19 12/25/2019 12/25/2019 12/26/2019 2:46 PM CDT R/O COVID-19 05/09/2020 05/09/2020 05/09/2020 12:1 7 PM MEDICARE NURSE documented as of this encounter Care Teams Teacher Vocal Relationship Specialty Start Date End Date Dara Tavera FNP [address] [place] [phone] PCP - General NURSE PRACTITIONER 10/13/18 documented as of this encounter
--- OUTSIDE RECORDS SUMMARY | 2025-05-08 18:43 | XMS_ITS | Encounter Summary ---
Author Organization [facility] Address [address] [place] [address] Care Team Providers Care Pipe Fitter Street Service Name Role Phone Dara Tavera AMANDEEP Primary Care Provider Encounter Details Date Type Department Care Team (Late st Contact Info) Description 04/26/[address] [facility] Emergency Department [address] [place] [address] Kenney Simmons MD [address] [place] [address] Abdominal Pain, Other Specified Site (Primary Dx) Social History Tobacco Use Types Packs/Day Years Used Date Smoking Tobacco: Never Assessed Comments Unknown Sex and Gender Information Value Date Recorded Sex Assigned at Not on file Legal Sex Female 5:22 AM ADMISSIONS NURSE Gender Identity Not on file Sexual Orientation Not on file documented as of this encounter Plan of Treatment Not on file documented as of this encounter Procedures Procedure Name Priority Date/Time Associated Diagnosis Comments URINALYSIS W/REFLEX MICROSCOPIC Routine 04/26/2007 11:[address] URINARY CALCULI WO CONTRAST Routine 04/26/2007 11:22 PM ADMISSIONS NURSE documented in this encounter Results * (ABNORMAL) URINALYSIS (04/26/2007 11:48 PM ADMISSIONS NURSE) COLOR UA Yellow Straw INTERFACE SYSTEM CLARITY [...] No INTERFACE SYSTEM 04/26/2007 11:4 8 PM ADMISSIONS NURSE us Physician Sj Ed URINE ORDERABLES Edited INTERFACE SYSTEM Refer to clinic/hospital department * CT RENAL COLIC WO CONT (04/26/2007 11:22 PM ADMISSIONS NURSE) Anatomical Region Laterality Modality Abdomen Other 04/26/2007 11:2 2 PM ADMISSIONS NURSE Narrative 04/26/2007 11:[address] Scan For Renal Colic: Date: 04/27/2007History: [...] degenerative changes in the spine. T11 and [id number] bodies are fused,possibly congenital. Impression: No urinary [...] 10/30/13 Resolved 11/04/2013 11/04/2013 8 10:33 AM ADMISSIONS NURSE R/O COVID-19 12/25/2019 12/25/2019 12/26/2019 2:46 PM CDT R/O COVID-19 05/09/2020 05/09/2020 05/09/2020 12:1 7 PM ADMISSIONS NURSE documented as of this encounter Care Teams Pipe Fitter [address] Service Relationship Specialty Start Date End Date Dara Tavera FNP [address] [place] [phone] PCP - General NURSE PRACTITIONER 10/13/18 documented as of this encounter
--- OUTSIDE RECORDS SUMMARY | 2025-05-08 18:43 | XMS_ITS | Encounter Summary ---
Author Organization [facility] Address [address] [place] [address] Care Team Providers Care Insert Cutter Name Role Phone Dara Tavera AMANDEEP Primary Care Provider Encounter Details Date Type Department Care Team (Latest Contact Info) Description 07/30/1997 Outpatient Historical [facility] Roney Arora MD [address] [facility] [address] [place] [address] Bipolar I disorder, most recent episode (or current) unspecified (CMS/HCC) (Primary Dx); Unspecified osteomyelitis, other specified site; Nausea with vomiting Social History Tobacco Use Types Packs/Day Years Used Date Smoking Tobacco: Never Assessed Comments Unknown Sex and Gender Information Value Date Recorded Sex Assigned at Not on file Legal Sex Female 5:22 AM MARKETING PLANNING MANAGER Gender Identity Not on file Sexual [...] 10/30/13 Resolved 11/04/2013 11/04/2013 8 10:33 AM MARKETING PLANNING MANAGER R/O COVID-19 12/25/2019 12/25/2019 12/26/2019 2:46 PM CDT R/O COVID-19 05/09/2020 05/09/2020 05/09/2020 12:1 7 PM MARKETING PLANNING MANAGER documented as of this encounter Care Teams Insert Cutter Relationship Specialty Start Date End Date Dara Tavera FNP [address] [place] [address] PCP - General NURSE PRACTITIONER 10/13/18 documented as of this encounter
--- OUTSIDE RECORDS SUMMARY | 2025-05-08 18:43 | XMS_ITS | Encounter Summary ---
Author Organization [facility] Address [address] [place] [address] Care Team Providers Care Teaching Aide Name Role Phone Dara Tavera AMANDEEP Primary Care Provider Encounter Details Date Type Department Care Team (Latest Contact Info) Description 04/20/2008 Outpatient Historical [facility] [address] [place] [address] AMBULANCE, [facility] Other Specified Cardiac Dysrhythmias; Unspecified Nonpsychotic Mental [...] Legal Sex Female 5:22 AM DIRECTOR OF MARKETING [employer] PERFORMANCE ADS Gender Identity Not on file Sexual Orientation [...] 11/04/2013 11/04/2013 8 10:33 AM DIRECTOR OF MARKETING [employer] PERFORMANCE ADS R/O COVID-19 12/25/2019 12/25/2019 12/26/2019 2:46 PM CDT R/O COVID-05/09/2020 05/09/2020 05/09/2020 12:1 7 PM DIRECTOR OF MARKETING [employer] PERFORMANCE ADS documented as of this encounter Care Teams Teaching Aide Relationship Specialty Start Date End Date Dara Tavera FNP [address] [place] [phone] PCP - General NURSE PRACTITIONER 10/13/18 documented as of this encounter
--- OUTSIDE RECORDS SUMMARY | 2025-05-08 18:43 | XMS_ITS | Encounter Summary ---
Author Organization [facility] Address [address] [place] [address] Care Team Providers Care Telecine Operator Name Role Phone Dara Tavera Primary Care Provider Encounter Details Date Type Department Care Team (Latest Contact Info) Description 05/01/2007 Outpatient Historical [facility] Urology- [address]tr[address], [address] [place] [address] Mason West MD NO ADDRESS ON FILE Abdominal Pain, Unspecified Site (Primary Dx) Social History Tobacco Use Types Packs/Day Years Used Date Smoking Tobacco: Never Assessed Comments Unknown Sex and Gender Information Value Date Recorded Sex Assigned at Not on file Legal Sex Female 5:22 AM CURTAIN DRIER Gender Identity Not on file Sexual Orientation Not on file documented as of this encounter Plan of Treatment Not on file documented as of this encounter Visit Diagnoses Diagnosis Abdominal pain, unspecified site- Primary documented in this encounter Additional Health Concerns Infection Onset Date Last Indicated Resolved Time VRE Comment:Urine 10/30/13 Resolved 11/04/2013 11/04/2013 8 10:33 AM CURTAIN DRIER R/O COVID-19 12/25/2019 12/25/2019 12/26/2019 2:46 PM CDT R/O COVID-19 05/09/2020 05/09/2020 05/09/2020 12:1 7 PM CURTAIN DRIER documented as of this encounter Care Teams Telecine Operator Relationship Specialty Start Date End Date Dara Tavera FNP [address] [place] [phone] PCP - General NURSE PRACTITIONER 10/13/18 documented as of this encounter
--- OUTSIDE RECORDS SUMMARY | 2025-05-08 18:43 | XMS_ITS | Encounter Summary ---
Author Organization [facility] Address [address] [place] [address] Care Team Providers Care Director University Name Role Phone Dara Tavera AMANDEEP Primary Care Provider Encounter Details Date Type Department Care Team (Late st Contact Info) Description 06/03/2007 Emergency [facility] Emergency Department [address] [place] [address] Ed, Physician NO ADDRESS ON FILE Oniel Sainz MD [address] [place] [address] Social History Tobacco Use Types Packs/Day Years Used Date Smoking Tobacco: Never Assessed Comments Unknown Sex and Gender Information Value Date Recorded Sex Assigned at Not on file Legal Sex Female 5:22 AM FORMS ANALYST Gender Identity Not on file Sexual Orientation Not on file documented as of this encounter Plan of Treatment Not on file documented as of this encounter Procedures Procedure Name Priority Date/Time Associated Diagnosis Comments CBC WITH DIFFERENTIAL Routine 06/03/2007 9:39 PM FORMS ANALYST COMPREHENSIVE METABOLIC PANEL Routine 06/03/2007 9:39 PM FORMS ANALYST URINALYSIS W/REFLEX MICROSCOPIC Routine 06/03/2007 9:26 PM FORMS ANALYST documented in this encounter Results * (ABNORMAL) COMPREHENSIVE METABOLIC PANEL (06/03/2007 9:39 PM FORMS ANALYST) [facility] [address] GLUCOSE 97 70 - 110 mg/dL INTERFACE [...] 295 mOsm/Kg INTERFACE SYSTEM 06/03/2007 9:39 PM FORMS ANALYST us Oniel Sainz MD CHEMISTRY ORDERABLES Edited INTERFACE SYSTEM Refer to clinic/hospital department * (ABNORMAL) CBC WITH DIFFERENTIAL (06/03/2007 9:39 PM FORMS ANALYST) Pathologist [facility] WBC 9.5 4.5 - 11.0 K/ul INTERFACE [...] 0.2 K/ul INTERFACE SYSTEM 06/03/2007 9:39 PM FORMS ANALYST Oniel Sainz MD HEMATOLOGY ORDERABLES Edited Performing Organization Address City/[facility] de Phone Number INTERFACE SYSTEM Refer to clinic/hospital department * URINALYSIS (06/03/2007 9:26 PM FORMS ANALYST) COLOR UA Yellow Straw INTERFACE SYSTEM CLARITY [...] No No INTERFACE SYSTEM 06/03/2007 9:26 PM FORMS ANALYST Oniel Sainz MD URINE ORDERABLES Edited Performing Organization Address City/[facility] Co de Phone Number INTERFACE SYSTEM Refer to clinic/hospital department documented in this encounter Visit Diagnoses Not on filedocumented in this encounter Additional Health Concerns Infection Onset Date Last Indicated Resolved Time VRE Comment:Urine 10/30/13 Resolved 11/04/2013 11/04/2013 8 10:33 AM FORMS ANALYST R/O COVID-19 12/25/2019 12/25/2019 12/26/2019 2:46 PM CDT R/O COVID-19 05/09/2020 05/09/2020 05/09/2020 12:1 7 PM FORMS ANALYST documented as of this encounter Care Teams Director University Relationship Specialty Start Date End Date Dara Tavera FNP [address] [place] [phone] PCP - General NURSE PRACTITIONER 10/13/18 documented as of this encounter
--- OUTSIDE RECORDS SUMMARY | 2025-05-08 18:43 | XMS_ITS | Encounter Summary ---
Author Organization [facility] Address [address] [place] [address] Care Team Providers Care Passport Support Associate Name Role Phone Dara Tavera Primary Care Provider Encounter Details Date Type Department Care Team (Late st Contact Info) Description 07/03/2007 Outpatient [facility] [address] [place] [address] Tej Will MD [address] [address] Social History Tobacco Use Types Packs/Day Years Used Date Smoking Tobacco: Never Assessed Comments Unknown Sex and Gender Information Value Date Recorded Sex Assigned at Not on file Legal Sex Female 5:22 AM PROJECT CONSULTANT Gender Identity Not on file Sexual Orientation Not on file documented as of this encounter Plan of Treatment Not on file documented as of this encounter Visit Diagnoses Not on filedocumented in this encounter Additional Health Concerns Infection Onset Date Last Indicated Resolved Time VRE Comment:Urine 10/30/13 Resolved 11/04/2013 11/04/2013 8 10:33 AM PROJECT CONSULTANT R/O COVID-19 12/25/2019 12/25/2019 12/26/2019 2:46 PM CDT R/O COVID-19 05/09/2020 05/09/2020 05/09/2020 12:1 7 PM PROJECT CONSULTANT documented as of this encounter Care Teams Passport Support Associate Relationship Specialty Start Date End Date Dara Tavera FNP [address] [place] [phone] PCP - General NURSE PRACTITIONER 10/13/18 documented as of this encounter
--- OUTSIDE RECORDS SUMMARY | 2025-05-08 18:43 | XMS_ITS | Encounter Summary ---
Author Organization [facility] Address [address] [place] [address] Care Team Providers Care Sr. Manager Name Role Phone Dara Tavera AMANDEEP Primary Care Provider Encounter Details Date Type Department Care Team (Latest Contact Info) Description 04/01/2008 Outpatient Historical [facility] [address] [place] [address] AMBULANCE, [facility] Unspecified Asthma; Unspecified Nonpsychotic Mental Disorder; Other Convulsions (CMS/HCC); Tobacco Use Disorder; Personal History of Allergy to Analgesic Agent; Personal History of Allergy to Other Specified Medicinal Agents Social History Tobacco Use Types Packs/Day Years Used Date Smoking Tobacco: Never Assessed Comments Unknown Sex and Gender Information Value Date Recorded Sex Assigned at Not on file Legal Sex Female 5:22 AM RECORDS MANAGEMENT ENGINEER Gender Identity Not on file Sexual [...] 10/30/13 Resolved 11/04/2013 11/04/2013 8 10:33 AM RECORDS MANAGEMENT ENGINEER R/O COVID-19 12/25/2019 12/25/2019 12/26/2019 2:46 PM CDT R/O COVID-19 05/09/2020 05/09/2020 05/09/2020 12:1 7 PM RECORDS MANAGEMENT ENGINEER documented as of this encounter Care Teams Sr. Manager Relationship Specialty Start Date End Date Dara Tavera FNP [address] [place] [phone] PCP - General NURSE PRACTITIONER 10/13/18 documented as of this encounter
--- OUTSIDE RECORDS SUMMARY | 2025-05-08 18:43 | XMS_ITS | Encounter Summary ---
Author Organization [facility] Address [address] [place] [address] Care Team Providers Care Ophthalmic Technician Apprentice Name Role Phone Dara Tavera [facility] Primary Care Provider Encounter Details Date Type Department Care Team (Latest Contact Info) Description 05/10/2008 Outpatient Historical [facility] [address] [place] [address] AMBULANCE, [facility] Other Malaise and Fatigue; Other Speech Disturbance; Unspecified Abnormal Pupillary Function; Esophageal Reflux; Encounter for Long-Term (Current) Use of Other Medications Social History Tobacco Use Types Packs/Day Years Used Date Smoking Tobacco: Never Assessed Comments Unknown Sex and Gender Information Value Date Recorded Sex Assigned at Not on file Legal Sex Female 5:22 AM MICROPHONE BOOM OPERATOR Gender Identity Not on file Sexual [...] 10/30/13 Resolved 11/04/2013 11/04/2013 8 10:33 AM MICROPHONE BOOM OPERATOR R/O COVID-19 12/25/2019 12/25/2019 12/26/2019 2:46 PM CDT R/O COVID-19 05/09/2020 05/09/2020 05/09/2020 12:1 7 PM MICROPHONE BOOM OPERATOR documented as of this encounter Care Teams Ophthalmic Technician Apprentice Relationship Specialty Start Date End Date Dara Tavera FNP [address] [place] [phone] PCP - General NURSE PRACTITIONER 10/13/18 documented as of this encounter
--- OUTSIDE RECORDS SUMMARY | 2025-05-08 18:43 | XMS_ITS | Encounter Summary ---
Author Organization [facility] Address [address] [place] [address] Care Team Providers Care Outside Industrial Sales Representative Name Role Phone Dara Tavera AMANDEEP Primary Care Provider Encounter Details Date Type Department Care Team (Late st Contact Info) Description 08/11/2007 Emergency [facility] Emergency Department [address] [place] [address] Ed, Physician NO ADDRESS ON FILE Amaury De La Rosa MD NO ADDRESS ON FILE Social History Tobacco Use Types Packs/Day Years Used Date Smoking Tobacco: Never Assessed Comments Unknown Sex and Gender Information Value Date Recorded Sex Assigned at Not on file Legal Sex Female 5:22 AM PARTS INTERPRETER Gender Identity Not on file Sexual Orientation Not on file documented as of this encounter Plan of Treatment Not on file documented as of this encounter Procedures Procedure Name Priority Date/Time Associated Diagnosis Comments XR ABDOMEN 1 VW Routine 08/12/2007 4:46 AM PARTS INTERPRETER CBC WITH DIFFERENTIAL Stat 08/12/2007 4:19 AM PARTS INTERPRETER LIPASE Stat 08/12/2007 4:19 AM PARTS INTERPRETER COMPREHENSIVE METABOLIC PANEL Stat 08/12/2007 4:19 AM PARTS INTERPRETER URINALYSIS W/REFLEX MICROSCOPIC Stat 08/12/2007 3:10 AM PARTS INTERPRETER documented in this encounter Results * XR ABDOMEN 1 VW (08/12/2007 4:46 AM PARTS INTERPRETER) Anatomical Region Laterality Modality Abdomen Other 08/12/2007 4:46 AM PARTS INTERPRETER Narrative 08/12/2007 4:46 AM PARTS INTERPRETER Exam: KUB Date/Time of Exam: Aug 12, [...] * CBC WITH DIFFERENTIAL (08/12/2007 4:19 AM PARTS INTERPRETER) RBC 4.56 4.20 - 5.40 Mil/ul [facility] MCHC 33.8 30.0 - 35.0 g/dL [facility] LYMPHOCYTE ABSOLUTE 2.2 1.2 - 4.0 K/ul [facility] LYMPHOCYTES 25.6 24.0 - 44.0 % [facility] MCV 86.4 84.0 - 103.0 Fl [facility] BASOPHILS 0.7 0.0 - 1.0 % [facility] MPV 9.9 8.9 - 12.8 Fl [facility] BASOPHILS ABSOLUTE 0.1 0.0 - 0.2 K/ul [facility] HEMOGLOBIN 13.3 12.0 - 16.0 g/dL [facility] MONOCYTES 6.3 2.0 - 10.0 % [facility] RDW 14.1 11.0 - 14.5 % [facility] MONOCYTE ABSOLUTE 0.5 0.1 - 0.6 K/ul [facility] WBC 8.6 4.5 - 11.0 K/ul [facility] NEUTROPHILS 65.3 42.2 - 75.2 % [facility] MCH 29.2 27.0 - 34.0 pg [facility] NEUTROPHIL ABSOLUTE 5.6 2.0 - 8.0 K/ul [facility] HEMATOCRIT 39.4 36.0 - 46.0 % [facility] PLATELETS 233 140 - 440 K/ul [facility] EOSINOPHIL ABSOLUTE 0.2 0.0 - 0.7 K/ul [facility] EOSINOPHILS 2.1 0.0 - 7.0 % [facility] Blood specimen (specimen) 08/12/2007 4:19 AM PARTS INTERPRETER 08/12/2007 4:22 AM PARTS INTERPRETER us Amaury De La Rosa MD HEMATOLOGY ORDERABLES Final Resu lt [facility] [address] [place] [address] * (ABNORMAL) COMPREHENSIVE METABOLIC PANEL (08/12/2007 4:19 AM PARTS INTERPRETER) GLUCOSE 99 70 - 110 mg/dL [facility] ALKALINE PHOSPHATASE 134(H) 25 - 100 U/L [facility] CHLORIDE 108 95 - 110 mEq/L [facility] ALBUMIN/GLOBULIN RATIO 1.4 1.0 - 2.3 [facility] TOTAL PROTEIN 7.8 6.3 - 8.2 g/dL [facility] SODIUM 136 136 - 145 mEq/L [facility] BILIRUBIN TOTAL 0.2(L) 0.3 - 1.2 mg/dL [facility] BUN 20(H) 7 - 17 mg/dL [facility] CO2 23 22 - 32 mmol/l [facility] ANION GAP 9 9 - 20 mEq/L [facility] AST 20 8 - 33 U/L [facility] POTASSIUM 4.1 3.5 - 5.0 mEq/L [facility] GLOBULIN (CALC) 3.3 2.4 - 3.9 g/dL [facility] ALBUMIN 4.5 3.5 - 5.0 g/dL [facility] CREATININE 0.8 0.7 - 1.2 mg/dL [facility] ALT 24 4 - 36 IU/L [facility] CALCIUM 9.7 8.4 - 10.5 mg/dL [facility] OSMOLALITY, CALCULATED 283 275 - 295 mOsm/Kg [facility] Blood specimen (specimen) 08/12/2007 4:19 AM PARTS INTERPRETER 08/12/2007 4:22 AM PARTS INTERPRETER us Amaury De La Rosa MD CHEMISTRY ORDERABLES Final Resul t Performing Organization Address [facility] de Phone Number [facility] [address] [place] [address] * LIPASE (08/12/2007 4:19 AM PARTS INTERPRETER) Pathologist [facility] LIPASE 49 6 - 51 U/L [facility] Blood specimen (specimen) 08/12/2007 4:19 AM PARTS INTERPRETER 08/12/2007 4:22 AM PARTS INTERPRETER Amaury De La Rosa MD CHEMISTRY ORDERABLES Final Resul t Performing Organization Address [facility] Co de Phone Number [facility] [address] [place] [address] * URINALYSIS (08/12/2007 3:10 AM PARTS INTERPRETER) CLARITY UA Clear Clear [facility] GLUCOSE UA NEGATIVE NEGATIVE [facility] SPECIFIC GRAVITY UA 1.010 <=1.005 [facility] PH UA 7.0 5.0 - 9.0 [facility] BILIRUBIN UA NEGATIVE NEGATIVE [facility] LEUKOCYTE ESTERASE UA NEGATIVE NEGATIVE [facility] MICRO EXAM No No [facility] KETONES UA NEGATIVE NEGATIVE [facility] COLOR UA Yellow Straw [facility] PROTEIN UA NEGATIVE NEGATIVE [facility] BLOOD UA NEGATIVE NEGATIVE [facility] NITRITE UA NEGATIVE NEGATIVE [facility] UROBILINOGEN UA 0.2 0.2 [facility] Urine, clean catch 08/12/2007 3:10 AM PARTS INTERPRETER 08/12/2007 3:12 AM PARTS INTERPRETER us Physician Sj Ed URINE ORDERABLES Final Result Performing Organization Address City/State/[facility] Co de Phone Number [facility] [address] [place] [address] documented in this encounter Visit Diagnoses Not on filedocumented in this encounter Additional Health Concerns Infection Onset Date Last Indicated Resolved Time VRE Comment:Urine 10/30/13 Resolved 11/04/2013 11/04/2013 8 10:33 AM PARTS INTERPRETER R/O COVID-19 12/25/2019 12/25/2019 12/26/2019 2:46 PM CDT R/O COVID-19 05/09/2020 05/09/2020 05/09/2020 12:1 7 PM PARTS INTERPRETER documented as of this encounter Care Teams Outside Industrial Sales Representative Relationship Specialty Start Date End Date Dara Tavera FNP [address] [place] [address] PCP - General NURSE PRACTITIONER 10/13/18 documented as of this encounter
--- OUTSIDE RECORDS SUMMARY | 2025-05-08 18:43 | XMS_ITS | Encounter Summary ---
Author Organization [facility] Address [address] [place] [address] Care Team Providers Care Feed And Farm Management Adviser Name Role Phone Dara Tavera AMANDEEP Primary Care Provider Encounter Details Date Type Department Care Team (Late st Contact Info) Description 04/30/2007 Outpatient [facility] [address] [place] [address] AMBULANCE, [facility] Social History Tobacco Use Types Packs/Day Years Used Date Smoking Tobacco: Never Assessed Comments Unknown Sex and Gender Information Value Date Recorded Sex Assigned at Not on file Legal Sex Female 5:22 AM PET CARETAKER Gender Identity Not on file Sexual Orientation Not on file documented as of this encounter Plan of Treatment Not on file documented as of this encounter Procedures Procedure Name Priority Date/Time Associated Diagnosis Comments CT ABDOMEN PELVIS W CONTRAST Routine 04/30/2007 8:07 PM PET CARETAKER documented in this encounter Results * CT ABDOMEN PELVIS W CONTRAST (04/30/2007 8:07 PM PET CARETAKER) Anatomical Region Laterality Modality Abdomen Other 04/30/2007 8:07 PM PET CARETAKER Narrative 04/30/2007 8:[address] Scan Abdomen and Pelvis with contrast [...] 10/30/13 Resolved 11/04/2013 11/04/2013 8 10:33 AM PET CARETAKER R/O COVID-19 12/25/2019 12/25/2019 12/26/2019 2:46 PM CDT R/O COVID-19 05/09/2020 05/09/2020 05/09/2020 12:1 7 PM PET CARETAKER documented as of this encounter Care Teams Feed And Farm Management Adviser Relationship Specialty Start Date End Date Dara Tavera FNP [address] [place] [address] PCP - General NURSE PRACTITIONER 10/13/18 documented as of this encounter
--- OUTSIDE RECORDS SUMMARY | 2025-05-08 18:43 | XMS_ITS | Encounter Summary ---
Author Organization [facility] Address [address] [place] [address] Care Team Providers Care Head Turbine Operator Name Role Phone Dara Tavera Primary Care Provider Encounter Details Date Type Department Care Team (Late st Contact Info) Description 03/05/2008 Outpatient Historical [facility] [address] [place] [address] AMBULANCE, [facility] Social History Tobacco Use Types Packs/Day Years Used Date Smoking Tobacco: Never Assessed Comments Unknown Sex and Gender Information Value Date Recorded Sex Assigned at Not on file Legal Sex Female 5:22 AM ELECTRICAL TECHNOLOGY INSTRUCTOR Gender Identity Not on file Sexual Orientation Not on file documented as of this encounter Plan of Treatment Not on file documented as of this encounter Visit Diagnoses Not on filedocumented in this encounter Additional Health Concerns Infection Onset Date Last Indicated Resolved Time VRE Comment:Urine 10/30/13 Resolved 11/04/2013 11/04/2013 8 10:33 AM ELECTRICAL TECHNOLOGY INSTRUCTOR R/O COVID-19 12/25/2019 12/25/2019 12/26/2019 2:46 PM CDT R/O COVID-19 05/09/2020 05/09/2020 05/09/2020 12:1 7 PM ELECTRICAL TECHNOLOGY INSTRUCTOR documented as of this encounter Care Teams Head Turbine Operator Relationship Specialty Start Date End Date Dara Tavera FNP [address] [place] [phone] PCP - General NURSE PRACTITIONER 10/13/18 documented as of this encounter
--- OUTSIDE RECORDS SUMMARY | 2025-05-08 18:43 | XMS_ITS | Encounter Summary ---
Author Organization [facility] Address [address] [place] [address] Care Team Providers Care Weed Cutter Name Role Phone Dara Tavera AMANDEEP Primary Care Provider Encounter Details Date Type Department Care Team (Latest Contact Info) Description 05/11/2008 Outpatient Historical [facility] [address] [place] [address] [address], [facility] Esophageal Reflux; Personal History of Allergy [...] on file Legal Sex Female 5:22 AM CHILDRENS CLUB ATTENDANT Gender Identity Not on file Sexual [...] 10/30/13 Resolved 11/04/2013 11/04/2013 8 10:33 AM CHILDRENS CLUB ATTENDANT R/O COVID-19 12/25/2019 12/25/2019 12/26/2019 2:46 PM CDT R/O COVID-19 05/09/2020 05/09/2020 05/09/2020 12:1 7 PM CHILDRENS CLUB ATTENDANT documented as of this encounter Care Teams Weed Cutter Relationship Specialty Start Date End Date Dara Tavera FNP [address] [place] [phone] PCP - General NURSE PRACTITIONER 10/13/18 documented as of this encounter
--- OUTSIDE RECORDS SUMMARY | 2025-05-08 18:43 | XMS_ITS | Encounter Summary ---
Author Organization [facility] Address [address] [place] [address] Care Team Providers Care Supervisor Heat Treating Name Role Phone Dara Tavera AMANDEEP Primary Care Provider Encounter Details Date Type Department Care Team (Late st Contact Info) Description 04/27/2007 Emergency [facility] Emergency Department [address] [place] [address] Sammi Justice MD [address] [place] [address] Abdominal Pain, Other Specified Site (Primary Dx) Social History Tobacco Use Types Packs/Day Years Used Date Smoking Tobacco: Never Assessed Comments Unknown Sex and Gender Information Value Date Recorded Sex Assigned at Not on file Legal Sex Female 5:22 AM BIOLOGICAL INSPECTOR Gender Identity Not on file Sexual Orientation Not on file documented as of this encounter Plan of Treatment Not on file documented as of this encounter Procedures Procedure Name Priority Date/Time Associated Diagnosis Comments URINALYSIS W/REFLEX MICROSCOPIC Routine 04/27/2007 6:20 PM BIOLOGICAL INSPECTOR CBC WITH DIFFERENTIAL Routine 04/27/2007 6:09 PM BIOLOGICAL INSPECTOR COMPREHENSIVE METABOLIC PANEL Routine 04/27/2007 6:09 PM BIOLOGICAL INSPECTOR documented in this encounter Results * URINALYSIS (04/27/2007 6:20 PM BIOLOGICAL INSPECTOR) COLOR UA Yellow Straw INTERFACE SYSTEM [...] No No INTERFACE SYSTEM 04/27/2007 6:20 PM BIOLOGICAL INSPECTOR Sammi Justice MD URINE ORDERABLES Edited Performing Organization Address City/[facility] Co de Phone Number INTERFACE SYSTEM Refer to clinic/hospital department * (ABNORMAL) COMPREHENSIVE METABOLIC PANEL (04/27/2007 6:09 PM BIOLOGICAL INSPECTOR) GLUCOSE 108 70 - 110 mg/dL INTERFACE [...] 295 mOsm/Kg INTERFACE SYSTEM 04/27/2007 6:09 PM BIOLOGICAL INSPECTOR Sammi Justice MD CHEMISTRY ORDERABLES Edited INTERFACE SYSTEM Refer to clinic/hospital department * (ABNORMAL) CBC WITH DIFFERENTIAL (04/27/2007 6:09 PM BIOLOGICAL INSPECTOR) WBC 11.0 4.5 - 11.0 K/ul INTERFACE [...] 0.2 K/ul INTERFACE SYSTEM 04/27/2007 6:09 PM BIOLOGICAL INSPECTOR us Sammi Justice MD HEMATOLOGY ORDERABLES Edite d INTERFACE SYSTEM Refer to clinic/hospital department documented in this encounter Visit Diagnoses Diagnosis Abdominal pain, other specified site- Primary documented in this encounter Additional Health Concerns Infection Onset Date Last Indicated Resolved Time VRE Comment:Urine 10/30/13 Resolved 11/04/2013 11/04/2013 8 10:33 AM BIOLOGICAL INSPECTOR R/O COVID-19 12/25/2019 12/25/2019 12/26/2019 2:46 PM CDT R/O COVID-19 05/09/2020 05/09/2020 05/09/2020 12:1 7 PM BIOLOGICAL INSPECTOR documented as of this encounter Care Teams Supervisor Heat Treating Relationship Specialty Start Date End Date Dara Tavera FNP [address] [place] [address] PCP - General NURSE PRACTITIONER 10/13/18 documented as of this encounter
--- OUTSIDE RECORDS SUMMARY | 2025-05-08 18:43 | XMS_ITS | Encounter Summary ---
Author Organization [facility] Address [address] Bello: [place] [address] Care Team Providers Care Ceramic Artist Name Role Phone Dara Tavera Primary Care Provider Encounter Details Date Type Department Care Team (Late st Contact Info) Description 11/12/1999 Outpatient Historical [facility] [place] [facility], [address] [place] [id number] Social History Tobacco Use Types Packs/Day Years Used Date Smoking Tobacco: Never Assessed Comments Unknown Sex and Gender Information Value Date Recorded Sex Assigned at Not on file Legal Sex Female 5:22 AM HOME BUILDER Gender Identity Not on file Sexual Orientation Not on file documented as of this encounter Plan of Treatment Not on file documented as of this encounter Visit Diagnoses Not on filedocumented in this encounter Additional Health Concerns Infection Onset Date Last Indicated Resolved Time VRE Comment:Urine 10/30/13 Resolved 11/04/2013 11/04/2013 8 10:33 AM HOME BUILDER R/O COVID-19 12/25/2019 12/25/2019 12/26/2019 2:46 PM CDT R/O COVID-19 05/09/2020 05/09/2020 05/09/2020 12:1 7 PM HOME BUILDER documented as of this encounter Care Teams Ceramic Artist Relationship Specialty Start Date End Date Dara Tavera FNP [address] [place] [phone] PCP - General NURSE PRACTITIONER 10/13/18 documented as of this encounter
--- OUTSIDE RECORDS SUMMARY | 2025-05-08 18:43 | XMS_ITS | Encounter Summary ---
Author Organization [facility] Address [address] [place] [address] Care Team Providers Care Molder Machine Name Role Phone Dara Tavera AMANDEEP Primary Care Provider Encounter Details Date Type Department Care Team (Late st Contact Info) Description 08/05/2007 Emergency [facility] Emergency Department [address] [place] [address] Ed, Physician NO ADDRESS ON [...] on file Legal Sex Female 5:22 AM TRAIN ATTENDANT Gender Identity Not on file Sexual Orientation Not on file documented as of this encounter Plan of Treatment Not on file documented as of this encounter Procedures Procedure Name Priority Date/Time Associated Diagnosis Comments CT HEAD WO CONTRAST Routine 08/05/2007 6 :19 PM TRAIN ATTENDANT XR CHEST PA AND LATERAL 2 VW Routine 08/05/2007 5:14 PM TRAIN ATTENDANT CBC WITH DIFFERENTIAL Stat 08/05/2007 4:15 PM TRAIN ATTENDANT BASIC METABOLIC PANEL Stat 08/05/2007 4:15 PM TRAIN ATTENDANT documented in this encounter Results * CT HEAD WO CONTRAST (08/05/2007 6:19 PM TRAIN ATTENDANT) Anatomical Region Laterality Modality Head Other 08/05/2007 6:19 PM TRAIN ATTENDANT Narrative 08/05/2007 6:33 PM TRAIN ATTENDANT The posterior fossa is grossly normal. The [...] CHEST PA AND LATERAL (08/05/2007 5:14 PM TRAIN ATTENDANT) Anatomical Region Laterality Modality Chest Other 08/05/2007 5:14 PM TRAIN ATTENDANT Narrative 08/05/2007 7:38 PM TRAIN ATTENDANT The heart and mediastinum are normal in [...] (ABNORMAL) CBC WITH DIFFERENTIAL (08/05/2007 4:15 PM TRAIN ATTENDANT) EOSINOPHIL ABSOLUTE 0.3 0.0 - 0.7 K/ul [facility] RBC 4.46 4.20 - 5.40 Mil/ul [facility] LYMPHOCYTES 31.5 24.0 - 44.0 % [facility] MCHC 33.2 30.0 - 35.0 g/dL [facility] LYMPHOCYTE ABSOLUTE 2.6 1.2 - 4.0 K/ul [facility] MCV 87.0 84.0 - 103.0 Fl [facility] MPV 9.8 8.9 - 12.8 Fl [facility] BASOPHILS ABSOLUTE 0.1 0.0 - 0.2 K/ul [facility] BASOPHILS 0.6 0.0 - 1.0 % [facility] HEMOGLOBIN 12.9 12.0 - 16.0 g/dL [facility] RDW 14.6(H) 11.0 - 14.5 % [facility] MONOCYTE ABSOLUTE 0.7(H) 0.1 - 0.6 K/ul [facility] MONOCYTES 7.7 2.0 - 10.0 % [facility] WBC 8.4 4.5 - 11.0 K/ul [facility] MCH 28.9 27.0 - 34.0 pg [facility] NEUTROPHIL ABSOLUTE 4.8 2.0 - 8.0 K/ul [facility] NEUTROPHILS 56.7 42.2 - 75.2 % [facility] HEMATOCRIT 38.8 36.0 - 46.0 % [facility] EOSINOPHILS 3.5 0.0 - 7.0 % [facility] PLATELETS 232 140 - 440 K/ul [facility] Blood specimen (specimen) 08/05/2007 4:15 PM TRAIN ATTENDANT 08/05/2007 4:26 PM TRAIN ATTENDANT Hemant rBan MD HEMATOLOGY ORDERABLES Destiny l Result Performing Organization Address [facility] de Phone Number [facility] [address] [place] [address] * (ABNORMAL) BASIC METABOLIC PANEL (08/05/2007 4:15 PM TRAIN ATTENDANT) ANION GAP 9 9 - 20 mEq/L [facility] BUN 14 7 - 17 mg/dL [facility] CO2 19(L) 22 - 32 mmol/l [facility] OSMOLALITY, CALCULATED 290 275 - 295 mOsm/Kg [facility] POTASSIUM 3.9 3.5 - 5.0 mEq/L [facility] CREATININE 0.9 0.7 - 1.2 mg/dL [facility] CALCIUM 9.4 8.4 - 10.5 mg/dL [facility] GLUCOSE 105 70 - 110 mg/dL [facility] CHLORIDE 117(H) 95 - 110 mEq/L [facility] SODIUM 141 136 - 145 mEq/L [facility] Blood specimen (specimen) 08/05/2007 4:15 PM TRAIN ATTENDANT 08/05/2007 4:26 PM TRAIN ATTENDANT Hemant Bran MD CHEMISTRY ORDERABLES Final Result Performing Organization Address [facility] de Phone Number [facility] [address] [place] [address] documented in this encounter Visit Diagnoses Diagnosis [...] 10/30/13 Resolved 11/04/2013 11/04/2013 8 10:33 AM TRAIN ATTENDANT R/O COVID-19 12/25/2019 12/25/2019 12/26/2019 2:46 PM CDT R/O COVID-19 05/09/2020 05/09/2020 05/09/2020 12:1 7 PM TRAIN ATTENDANT documented as of this encounter Care Teams Molder Machine Relationship Specialty Start Date End Date Dara Tavera FNP [address] [place] [address] PCP - General NURSE PRACTITIONER 10/13/18 documented as of this encounter
--- OUTSIDE RECORDS SUMMARY | 2025-05-08 18:43 | XMS_ITS | Encounter Summary ---
Author Organization [facility] Address [address] [place] [address] Care Team Providers Care Manager Bilingual Name Role Phone Dara Tavera Primary Care Provider Encounter Details Date Type Department Care Team (Late st Contact Info) Description 05/13/2007 Outpatient [facility] [address] [place] [address] AMBULANCE, [facility] Social History Tobacco Use Types Packs/Day Years Used Date Smoking Tobacco: Never Assessed Comments Unknown Sex and Gender Information Value Date Recorded Sex Assigned at Not on file Legal Sex Female 5:22 AM FIRE ALARM MECHANIC Gender Identity Not on file Sexual Orientation Not on file documented as of this encounter Plan of Treatment Not on file documented as of this encounter Visit Diagnoses Not on filedocumented in this encounter Additional Health Concerns Infection Onset Date Last Indicated Resolved Time VRE Comment:Urine 10/30/13 Resolved 11/04/2013 11/04/2013 8 10:33 AM FIRE ALARM MECHANIC R/O COVID-19 12/25/2019 12/25/2019 12/26/2019 2:46 PM CDT R/O COVID-19 05/09/2020 05/09/2020 05/09/2020 12:1 7 PM FIRE ALARM MECHANIC documented as of this encounter Care Teams Manager Bilingual Relationship Specialty Start Date End Date Dara Tavera FNP [address] [place] [phone] PCP - General NURSE PRACTITIONER 10/13/18 documented as of this encounter
--- OUTSIDE RECORDS SUMMARY | 2025-05-08 18:43 | XMS_ITS | Encounter Summary ---
Author Organization [facility] Address [address] [place] [address] Care Team Providers Care Tax Compliance Representative Name Role Phone Dara Tavera Primary Care Provider [phone] Encounter Details Date Type Department Care Team (Late st Contact Info) Description 05/08/2007 Emergency [facility] Emergency Department [address] [place] [address] [place], NO ADDRESS ON FILE Shortness of Breath (Primary Dx) Social History Tobacco Use Types Packs/Day Years Used Date Smoking Tobacco: Never Assessed Comments Unknown Sex and Gender Information Value Date Recorded Sex Assigned at Not on file Legal Sex Female 5:22 AM CONVENTION SERVICES DIRECTOR Gender Identity Not on file Sexual Orientation Not on file documented as of this encounter Plan of Treatment Not on file documented as of this encounter Visit Diagnoses Diagnosis Shortness of breath- Primary documented in this encounter Additional Health Concerns Infection Onset Date Last Indicated Resolved Time VRE Comment:Urine 10/30/13 Resolved 11/04/2013 11/04/2013 8 10:33 AM CONVENTION SERVICES DIRECTOR R/O COVID-19 12/25/2019 12/25/2019 12/26/2019 2:46 PM CDT R/O COVID-19 05/09/2020 05/09/2020 05/09/2020 12:1 7 PM CONVENTION SERVICES DIRECTOR documented as of this encounter Care Teams Tax Compliance Representative Relationship Specialty Start Date End Date Dara Tavera FNP [address] [place] [address] PCP - General NURSE PRACTITIONER 10/13/18 documented as of this encounter
--- OUTSIDE RECORDS SUMMARY | 2025-05-08 18:43 | XMS_ITS | Encounter Summary ---
Author Organization [facility] Address [address] [place] [address] Care Team Providers Care Fire And Safety Helper Name Role Phone Dara Tavera PACKING ROOM INSPECTOR Primary Care Provider Encounter Details Date [...] on file Legal Sex Female 5:22 AM MERCHANDISE ASSOCIATE Gender Identity Not on file Sexual Orientation Not on file documented as of this encounter Progress Notes * Nam Calvo MD - 06/04/2008 9:18 AM CST NAME LATESHA WILHELM PATIENT # [id number] 1965 AGE 42Y PHYSICIAN NAM CALVO MD/[id number] ADMITTED 05/11/2008 DISMISSED 05/12/2008 REVISED DOCUMENT: 07/11/2008 [facility] DISCHARGE DIAGNOSES: 1. Drug overdose. SECONDARY [...] was activated. [facility] where she had head [facility]. Fortunately, [...] Econazole nitrate cream applied topically. NAM CALVO MD/[id number]/ [id number] REV/BL [id number] - 07/11/2008 - [facility] HANDISE ASSOCIATE documented in this encounter Plan of Treatment Not on file documented as of this encounter Procedures Procedure Name Priority Date/Time Associated Diagnosis Comments CARDIAC ENZYMES Routine 05/12/2008 4:45 AM MERCHANDISE ASSOCIATE CBC WITH DIFFERENTIAL Routine 05/12/2008 4:45 AM MERCHANDISE ASSOCIATE TSH Routine 05/12/2008 4:45 AM MERCHANDISE ASSOCIATE COMPREHENSIVE METABOLIC PANEL Routine 05/12/2008 4:45 AM MERCHANDISE ASSOCIATE CARDIAC ENZYMES Routine 05/11/2008 10:13 PM MERCHANDISE ASSOCIATE D-DIMER Routine 05/11/2008 10:13 PM MERCHANDISE ASSOCIATE CARDIAC ENZYMES Routine 05/11/2008 3:50 PM MERCHANDISE ASSOCIATE XR CHEST PA OR AP 1 VW Routine 8 1:07 PM MERCHANDISE ASSOCIATE MRSA CULTURE Routine 05/11/2008 10:37 AM MERCHANDISE ASSOCIATE URINALYSIS W/REFLEX MICROSCOPIC Routine 05/11/2008 5:41 AM MERCHANDISE ASSOCIATE documented in this encounter Results * (ABNORMAL) CBC WITH DIFFERENTIAL (05/12/2008 4:45 AM MERCHANDISE ASSOCIATE) HEMATOCRIT 36.0 36.0 - 46.0 % [facility] EOSINOPHILS 5.1 0.0 - 7.0 % [facility] PLATELETS 207 140 - 440 K/ul [facility] EOSINOPHIL ABSOLUTE 0.4 0.0 - 0.7 K/ul [facility] RBC 3.92(L) 4.20 - 5.40 Mil/ul [facility] LYMPHOCYTES 35.9 24.0 - 44.0 % [facility] MCHC 33.3 30.0 - 35.0 g/dL [facility] LYMPHOCYTE ABSOLUTE 2.6 1.2 - 4.0 K/ul [facility] MCV 91.8 84.0 - 103.0 Fl [facility] MPV 10.4 8.9 - 12.8 Fl [facility] BASOPHILS ABSOLUTE 0.1 0.0 - 0.2 K/ul [facility] BASOPHILS 1.1(H) 0.0 - 1.0 % [facility] HEMOGLOBIN 12.0 12.0 - 16.0 g/dL [facility] RDW 14.4 11.0 - 14.5 % [facility] MONOCYTE ABSOLUTE 0.5 0.1 - 0.6 K/ul [facility] MONOCYTES 7.4 2.0 - 10.0 % [facility] WBC 7.2 4.5 - 11.0 K/ul [facility] MCH 30.6 27.0 - 34.0 pg [facility] NEUTROPHIL ABSOLUTE 3.6 2.0 - 8.0 K/ul [facility] NEUTROPHILS 50.5 42.2 - 75.2 % [facility] Blood specimen (specimen) 05/12/2008 4:45 AM MERCHANDISE ASSOCIATE 05/12/2008 4:45 AM MERCHANDISE ASSOCIATE Murphy Espitia MD HEMATOLOGY ORDERABLES Final Res ult Performing Organization Address [facility] de Phone Number INTERFACE SYSTEM Refer to clinic/hospital department [facility] CLIA# [id number] [address] [place] [address] * TSH (05/12/2008 4:45 AM MERCHANDISE ASSOCIATE) TSH 2.120 0.350 - 5.500 uIU/ml [facility] Blood specimen (specimen) 05/12/2008 4:45 AM MERCHANDISE ASSOCIATE 05/12/2008 4:45 AM MERCHANDISE ASSOCIATE Murphy Espitia MD CHEMISTRY ORDERABLES Final Resu lt Performing Organization Address [facility] de Phone Number INTERFACE SYSTEM Refer to clinic/hospital department [facility] CLIA# [id number] [address] [place] [address] * (ABNORMAL) COMPREHENSIVE METABOLIC PANEL (05/12/2008 4:45 AM MERCHANDISE ASSOCIATE) CALCIUM 8.5 8.4 - 10.5 mg/dL [facility] CREATININE 0.8 0.7 - 1.2 mg/dL [facility] ALT 18 4 - 36 IU/L [facility] GLUCOSE 115(H) 70 - 110 mg/dL [facility] CHLORIDE 109 95 - 110 mEq/L [facility] OSMOLALITY, CALCULATED 282 275 - 295 mOsm/Kg [facility] ALKALINE PHOSPHATASE 110(H) 25 - 100 U/L [facility] GLOBULIN (CALC) 2.7 2.4 - 3.9 g/dL [facility] SODIUM 137 136 - 145 mEq/L [facility] BILIRUBIN TOTAL 0.1(L) 0.3 - 1.2 mg/dL [facility] TOTAL PROTEIN 6.2(L) 6.3 - 8.2 g/dL [facility] BUN 9 7 - 17 mg/dL [facility] AST 22 8 - 33 U/L [facility] CO2 24 22 - 32 mmol/l [facility] ALBUMIN/GLOBULIN RATIO 1.3 1.0 - 2.3 [facility] ALBUMIN 3.5 3.5 - 5.0 g/dL [facility] POTASSIUM 4.2 3.5 - 5.0 mEq/L [facility] ANION GAP 8(L) 9 - 20 mEq/L [facility] Blood specimen (specimen) 05/12/2008 4:45 AM MERCHANDISE ASSOCIATE 05/12/2008 4:45 AM MERCHANDISE ASSOCIATE Murphy Espitia MD CHEMISTRY ORDERABLES Final Resu lt Performing Organization Address [facility] de Phone Number INTERFACE SYSTEM Refer to clinic/hospital department [facility] CLIA# [id number] [address] [place] [address] * CARDIAC ENZYMES (05/12/2008 4:45 AM MERCHANDISE ASSOCIATE) TROPONIN I <0.1 0.0 - 1.3 ng/mL [facility] CKMB 0.3 0.0 - 5.0 ng/mL [facility] Blood specimen (specimen) 05/12/2008 4:45 AM MERCHANDISE ASSOCIATE 05/12/2008 4:45 AM MERCHANDISE ASSOCIATE us Murphy Espitia MD CHEMISTRY ORDERABLES Final Resu lt Performing Organization Address [facility] de Phone Number INTERFACE SYSTEM Refer to clinic/hospital department [facility] CLIA# [id number] [address] [place] [address] * CARDIAC ENZYMES (05/11/2008 10:13 PM MERCHANDISE ASSOCIATE) TROPONIN I <0.1 0.0 - 1.3 ng/mL [facility] CKMB 0.2 0.0 - 5.0 ng/mL [facility] Blood specimen (specimen) 05/11/2008 10:13 PM MERCHANDISE ASSOCIATE 05/11/2008 10:13 PM MERCHANDISE ASSOCIATE Murphy Espitia MD CHEMISTRY ORDERABLES Final Resu lt Performing Organization Address [facility] Phone Number INTERFACE SYSTEM Refer to clinic/hospital department [facility] CLIA# [id number] [address] [place] [address] * D-DIMER (05/11/2008 10:13 PM MERCHANDISE ASSOCIATE) Pathologist [facility] D-DIMER QUANT 0.4 0.0 - 0.5 mcg/mL [facility] Comment: Testing performed using the [...] range. Blood specimen (specimen) 05/11/2008 10:13 PM MERCHANDISE ASSOCIATE 05/11/2008 10:13 PM MERCHANDISE ASSOCIATE Murphy Espitia MD HEMATOLOGY ORDERABLES Final Res ult Performing Organization Address [facility] Phone Number INTERFACE SYSTEM Refer to clinic/hospital department [facility] CLIA# [id number] [address] [place] [address] * CARDIAC ENZYMES (05/11/2008 3:50 PM MERCHANDISE ASSOCIATE) Pathologist [facility] TROPONIN I <0.1 0.0 - 1.3 ng/mL [facility] CKMB 0.2 0.0 - 5.0 ng/mL [facility] Blood specimen (specimen) 05/11/2008 3:50 PM MERCHANDISE ASSOCIATE 05/11/2008 4:01 PM MERCHANDISE ASSOCIATE us Murphy Espitia MD CHEMISTRY ORDERABLES Final Resu lt Performing Organization Address [facility] de Phone Number INTERFACE SYSTEM Refer to clinic/hospital department [facility] CLIA# [id number] [address] [place] [address] * XR CHEST PA OR AP (05/11/2008 1:07 PM MERCHANDISE ASSOCIATE) Anatomical Region Laterality Modality Chest Other 05/11/2008 1:07 PM MERCHANDISE ASSOCIATE Narrative 05/11/2008 4:41 PM MERCHANDISE ASSOCIATE Exam: Chest - Portable Date/Time of Exam: [...] Result * MRSA CULTURE (05/11/2008 10:37 AM MERCHANDISE ASSOCIATE) FINAL REPORT Culture screen for MRSA negative INTERFACE SYSTEM ANTERIOR NARES SWAB / Unknown 05/11/2008 10:37 AM MERCHANDISE ASSOCIATE 05/11/2008 10:37 AM MERCHANDISE ASSOCIATE us Murphy Espitia MD MICROBIOLOGY - GENERAL ORDERABL ES Final Result INTERFACE SYSTEM Refer to clinic/hospital department * URINALYSIS (05/11/2008 5:41 AM MERCHANDISE ASSOCIATE) NITRITE UA NEGATIVE NEGATIVE [facility] UROBILINOGEN UA 0.2 0.2 [facility] CLARITY UA SL CLOUDY Clear [facility] SPECIFIC GRAVITY UA 1.015 <=1.005 [facility] GLUCOSE UA NEGATIVE NEGATIVE [facility] PH UA 8.0 5.0 - 9.0 [facility] BILIRUBIN UA NEGATIVE NEGATIVE [facility] LEUKOCYTE ESTERASE UA NEGATIVE NEGATIVE [facility] KETONES UA NEGATIVE NEGATIVE [facility] MICRO EXAM No No [facility] COLOR UA Yellow Straw [facility] PROTEIN UA NEGATIVE NEGATIVE [facility] BLOOD UA NEGATIVE NEGATIVE [facility] Urine specimen (specimen) 05/11/2008 5:41 AM MERCHANDISE ASSOCIATE 05/11/2008 5:41 AM MERCHANDISE ASSOCIATE us Murphy Espitia MD URINE ORDERABLES Final Result Performing Organization Address [facility] [place] Phone Number INTERFACE SYSTEM Refer to clinic/hospital department [facility] CLIA# [id number] [address] [place] [address] documented in this encounter Visit Diagnoses Diagnosis Poisoning by unspecified drug or medicinal substance(977.9) Poisoning by unspecified drug or medicinal substance documented in this encounter Additional Health Concerns Infection Onset Date Last Indicated Resolved Time VRE Comment:Urine 10/30/13 Resolved 11/04/2013 11/04/2013 8 10:33 AM MERCHANDISE ASSOCIATE R/O COVID-19 12/25/2019 12/25/2019 12/26/2019 2:46 PM CDT R/O COVID-19 05/09/2020 05/09/2020 05/09/2020 12:1 7 PM MERCHANDISE ASSOCIATE documented as of this encounter Care Teams Fire And Safety Helper Relationship Specialty Start Date End Date Dara Tavera FNP [address] [place] [phone] PCP - General NURSE PRACTITIONER 10/13/18 documented as of this encounter
--- OUTSIDE RECORDS SUMMARY | 2025-05-08 18:43 | XMS_ITS | Encounter Summary ---
Author Organization [facility] Address [address] [place] [address] Care Team Providers Care Airfield Engineer Officer Name Role Phone Dara Tavera AMANDEEP Primary Care Provider Encounter Details Date Type Department Care Team (Late st Contact Info) Description 05/14/2007 Emergency [facility] Emergency Department [address] [place] [address] Kurt Nassar MD [address] [place] [address] Abdominal Pain, Unspecified Site (Primary Dx) Social History Tobacco Use Types Packs/Day Years Used Date Smoking Tobacco: Never Assessed Comments Unknown Sex and Gender Information Value Date Recorded Sex Assigned at Not on file Legal Sex Female 5:22 AM CLOUD ENGINEER Gender Identity Not on file Sexual Orientation Not on file documented as of this encounter Plan of Treatment Not on file documented as of this encounter Procedures Procedure Name Priority Date/Time Associated Diagnosis Comments URINALYSIS W/REFLEX MICROSCOPIC Routine 05/14/2007 12:20 PM CLOUD ENGINEER CBC WITH DIFFERENTIAL Routine 05/14/2007 11:37 AM CLOUD ENGINEER LIPASE Routine 05/14/2007 11:37 AM CLOUD ENGINEER AMYLASE Routine 05/14/2007 11:37 AM CLOUD ENGINEER COMPREHENSIVE METABOLIC PANEL Routine 05/14/2007 11:37 AM CLOUD ENGINEER documented in this encounter Results * URINALYSIS (05/14/2007 12:20 PM CLOUD ENGINEER) COLOR UA Yellow Straw INTERFACE SYSTEM [...] No INTERFACE SYSTEM 05/14/2007 12:2 0 PM CLOUD ENGINEER Kurt Nassar MD URINE ORDERABLES Edited Performing Organization Address [facility] [place] Phone Number INTERFACE SYSTEM Refer to clinic/hospital department * AMYLASE (05/14/2007 11:37 AM CLOUD ENGINEER) AMYLASE 46 20 - 104 U/L INTERFACE SYSTEM 05/14/2007 11:3 7 AM CLOUD ENGINEER Result [facility] Kurt Nassar MD CHEMISTRY ORDERABLES Edite d Performing Organization Address [facility] Co de Phone Number INTERFACE SYSTEM Refer to clinic/hospital department * LIPASE (05/14/2007 11:37 AM CLOUD ENGINEER) LIPASE 30 6 - 51 U/L INTERFACE SYSTEM 05/14/2007 11:3 7 AM CLOUD ENGINEER Kurt Nassar MD CHEMISTRY ORDERABLES Edite d Performing Organization Address [facility] Co de Phone Number INTERFACE SYSTEM Refer to clinic/hospital department * (ABNORMAL) COMPREHENSIVE METABOLIC PANEL (05/14/2007 11:37 AM CLOUD ENGINEER) GLUCOSE 104 70 - 110 mg/dL INTERFACE [...] mOsm/Kg INTERFACE SYSTEM 05/14/2007 11:3 7 AM CLOUD ENGINEER us Kurt Nassar MD CHEMISTRY ORDERABLES Edite d INTERFACE SYSTEM Refer to clinic/hospital department * (ABNORMAL) CBC WITH DIFFERENTIAL (05/14/2007 11:37 AM CLOUD ENGINEER) WBC 12.6(H) 4.5 - 11.0 K/ul INTERFACE [...] K/ul INTERFACE SYSTEM 05/14/2007 11:3 7 AM CLOUD ENGINEER us Kurt Nassar MD HEMATOLOGY ORDERABLES Edit ed INTERFACE SYSTEM Refer to clinic/hospital department documented in this encounter Visit Diagnoses Diagnosis Abdominal pain, unspecified site- Primary documented in this encounter Additional Health Concerns Infection Onset Date Last Indicated Resolved Time VRE Comment:Urine 10/30/13 Resolved 11/04/2013 11/04/2013 10:33 AM CLOUD ENGINEER R/O COVID-19 12/25/2019 12/25/2019 12/26/2019 2:46 PM CDT R/O COVID-19 05/09/2020 05/09/2020 05/09/2020 12:1 7 PM CLOUD ENGINEER documented as of this encounter Care Teams Airfield Engineer Officer Relationship Specialty Start Date End Date Dara Tavera FNP [address] [place] [phone] PCP - General NURSE PRACTITIONER 10/13/18 documented as of this encounter
--- OUTSIDE RECORDS SUMMARY | 2025-05-08 18:43 | XMS_ITS | Encounter Summary ---
Author Organization [facility] Address [address] [place] [address] Care Team Providers Care Machine Assistant Name Role Phone Dara Tavera AMANDEEP Primary Care Provider [phone] Encounter Details Date Type Department Care Team (Latest Contact Info) Description 04/24/2008 Outpatient Historical [facility] [address] [place] [address] AMBULANCE, [facility] Unspecified Acute Reaction to Stress; [...] on file Legal Sex Female 5:22 AM DESIGN ENGINEERING MANAGER Gender Identity Not on file Sexual [...] 10/30/13 Resolved 11/04/2013 11/04/2013 8 10:33 AM DESIGN ENGINEERING MANAGER R/O COVID-19 12/25/2019 12/25/2019 12/26/2019 2:46 PM CDT R/O COVID-05/09/2020 05/09/2020 05/09/2020 12:1 7 PM DESIGN ENGINEERING MANAGER documented as of this encounter Care Teams Machine Assistant Relationship Specialty Start Date End Date Dara Tavera FNP [address] [place] [phone] PCP - General NURSE PRACTITIONER 10/13/18 documented as of this encounter
--- OUTSIDE RECORDS SUMMARY | 2025-05-08 18:43 | XMS_ITS | Encounter Summary ---
Author Organization [facility] Address [address] [place] [address] Care Team Providers Care Enamel Drier Name Role Phone Dara Tavera AMANDEEP Primary Care Provider Encounter Details Date Type Department Care Team (Latest Contact Info) Description 03/28/2008 Outpatient Historical [facility] [address] [place] [address] AMBULANCE, [facility] Unspecified Asthma; Unspecified Nonpsychotic Mental Disorder; [...] Sex Female 5:22 AM CHILD CARE CENTRE DIRECTOR Gender Identity Not on file Sexual [...] 11/04/2013 8 10:33 AM CHILD CARE CENTRE DIRECTOR R/O COVID-19 12/25/2019 12/25/2019 12/26/2019 2:46 PM CDT R/O COVID-05/09/2020 05/09/2020 05/09/2020 12:1 7 PM CHILD CARE CENTRE DIRECTOR documented as of this encounter Care Teams Enamel Drier Relationship Specialty Start Date End Date Dara Tavera FNP [address] [place] [phone] PCP - General NURSE PRACTITIONER 10/13/18 documented as of this encounter
--- OUTSIDE RECORDS SUMMARY | 2025-05-08 18:43 | XMS_ITS | Encounter Summary ---
Author Organization [facility] Address [address] [place] [address] Care Team Providers Care Rn Spine Name Role Phone Dara Tavera AMANDEEP Primary Care Provider Encounter Details Date Type Department Care Team (Late st Contact Info) Description 05/16/[address] [facility] Emergency Department [address] [place] [address] Ed, Physician NO ADDRESS ON FILE Thiago Mota MD NO ADDRESS ON FILE Social History Tobacco Use Types Packs/Day Years Used Date Smoking Tobacco: Never Assessed Comments Unknown Sex and Gender Information Value Date Recorded Sex Assigned at Not on file Legal Sex Female 5:22 AM PULLER THROUGH Gender Identity Not on file Sexual Orientation Not on file documented as of this encounter Plan of Treatment Not on file documented as of this encounter Procedures Procedure Name Priority Date/Time Associated Diagnosis Comments URINALYSIS MICROSCOPY ONLY Routine 05/16/2007 4:37 PM PULLER THROUGH URINALYSIS W/REFLEX MICROSCOPIC Routine 05/16/2007 4:37 PM PULLER THROUGH CBC WITH DIFFERENTIAL Routine 05/16/2007 4:32 PM PULLER THROUGH LIPASE Routine 05/16/2007 4:32 PM PULLER THROUGH AMYLASE Routine 05/16/2007 4:32 PM PULLER THROUGH COMPREHENSIVE METABOLIC PANEL Routine 05/16/2007 4:32 PM PULLER THROUGH documented in this encounter Results * (ABNORMAL) URINALYSIS (05/16/2007 4:37 PM PULLER THROUGH) COLOR UA Yellow Straw INTERFACE SYSTEM CLARITY [...] Yes(A) No INTERFACE SYSTEM 05/16/2007 4:37 PM PULLER THROUGH us Thiago Mota MD URINE ORDERABLES Edited Performing Organization Address [facility] Phone Number INTERFACE SYSTEM Refer to clinic/hospital department * (ABNORMAL) URINALYSIS MICROSCOPY ONLY (05/16/2007 4:37 PM PULLER THROUGH) WBC URINE None Seen 0 - 2 INTERFACE SYSTEM RBC UA None Seen 0 - 2 INTERFACE SYSTEM HYALINE CAST None Seen 0 - 2 INTERFA CE SYSTEM BACTERIA UA Few(A) None Seen INTERFAC E SYSTEM 05/16/2007 4:37 PM PULLER THROUGH us Thiago Mota MD URINE ORDERABLES Edited Performing Organization Address [facility] Phone Number INTERFACE SYSTEM Refer to clinic/hospital department * LIPASE (05/16/2007 4:32 PM PULLER THROUGH) LIPASE 27 6 - 51 U/L INTERFACE SYSTEM 05/16/2007 4:32 PM PULLER THROUGH us Thiago Mota MD CHEMISTRY ORDERABLES Edited Performing Organization Address [facility] Phone Number INTERFACE SYSTEM Refer to clinic/hospital department * AMYLASE (05/16/2007 4:32 PM PULLER THROUGH) AMYLASE 48 20 - 104 U/L INTERFACE SYSTEM 05/16/2007 4:32 PM PULLER THROUGH us Thiago Mota MD CHEMISTRY ORDERABLES Edited Performing Organization Address [facility] Phone Number INTERFACE SYSTEM Refer to clinic/hospital department * (ABNORMAL) COMPREHENSIVE METABOLIC PANEL (05/16/2007 4:32 PM PULLER THROUGH) GLOBULIN (CALC) 3.0 2.4 - 3.9 g/dL [...] 295 mOsm/Kg INTERFACE SYSTEM 05/16/2007 4:32 PM PULLER THROUGH us Thiago Mota MD CHEMISTRY ORDERABLES Edited Performing Organization Address [facility] Co de Phone Number INTERFACE SYSTEM Refer to clinic/hospital department * (ABNORMAL) CBC WITH DIFFERENTIAL (05/16/2007 4:32 PM PULLER THROUGH) WBC 13.2(H) 4.5 - 11.0 K/ul INTERFACE [...] 0.2 K/ul INTERFACE SYSTEM 05/16/2007 4:32 PM PULLER THROUGH Thiago Mota MD HEMATOLOGY ORDERABLES Edited INTERFACE SYSTEM Refer to clinic/hospital department documented in this encounter Visit Diagnoses Not on filedocumented in this encounter Additional Health Concerns Infection Onset Date Last Indicated Resolved Time 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
--- OUTSIDE RECORDS SUMMARY | 2025-05-08 18:43 | XMS_ITS | Encounter Summary ---
Author Organization [facility] Address [address] [place] [address] Care Team Providers Care Ncr Operator Name Role Phone Dara Tavera AMANDEEP Primary Care Provider Encounter Details Date Type Department Care Team (Late st Contact Info) Description 04/29/2007 Emergency [facility] Emergency Department [address] [place] [address] Temo Nagel MD [address] [place] [address] Abdominal Pain, Other Specified Site (Primary Dx) Social History Tobacco Use Types Packs/Day Years Used Date Smoking Tobacco: Never Assessed Comments Unknown Sex and Gender Information Value Date Recorded Sex Assigned at Not on file Legal Sex Female 5:22 AM EMS EDUCATOR Gender Identity Not on file Sexual Orientation Not on file documented as of this encounter Plan of Treatment Not on file documented as of this encounter Visit Diagnoses Diagnosis Abdominal pain, other specified site- Primary documented in this encounter Additional Health Concerns Infection Onset Date Last Indicated Resolved Time VRE Comment:Urine 10/30/13 Resolved 11/04/2013 11/04/2013 8 10:33 AM EMS EDUCATOR R/O COVID-19 12/25/2019 12/25/2019 12/26/2019 2:46 PM CDT R/O COVID-19 05/09/2020 05/09/2020 05/09/2020 12:1 7 PM EMS EDUCATOR documented as of this encounter Care Teams Ncr Operator Relationship Specialty Start Date End Date Dara Tavera FNP [address] [place] [phone] PCP - General NURSE PRACTITIONER 10/13/18 documented as of this encounter
--- OUTSIDE RECORDS SUMMARY | 2025-05-08 18:43 | XMS_ITS | Encounter Summary ---
Author Organization [facility] Address [address] [place] [address] Care Team Providers Care Supervising Editor Trailer Name Role Phone Dara Tavera AMANDEEP Primary Care Provider Encounter Details Date Type Department Care Team (Late st Contact Info) Description 04/30/2007 Emergency [facility] Emergency Department [address] [place] [address] Jillian Joyce MD [address] [place] [address] Other Acute Pain (Primary Dx) Social History Tobacco Use Types Packs/Day Years Used Date Smoking Tobacco: Never Assessed Comments Unknown Sex and Gender Information Value Date Recorded Sex Assigned at Not on file Legal Sex Female 5:22 AM LADLE POURER Gender Identity Not on file Sexual Orientation Not on file documented as of this encounter Plan of Treatment Not on file documented as of this encounter Procedures Procedure Name Priority Date/Time Associated Diagnosis Comments URINALYSIS W/REFLEX MICROSCOPIC Routine 04/30/2007 9:34 PM LADLE POURER PT AND APTT Routine 04/30/2007 7:35 PM LADLE POURER CBC WITH DIFFERENTIAL Routine 04/30/2007 7:35 PM LADLE POURER LIPASE Routine 04/30/2007 7:35 PM LADLE POURER COMPREHENSIVE METABOLIC PANEL Routine 04/30/2007 7:35 PM LADLE POURER documented in this encounter Results * URINALYSIS (04/30/2007 9:34 PM LADLE POURER) COLOR UA Straw Straw INTERFACE SYSTEM CLARITY [...] No No INTERFACE SYSTEM 04/30/2007 9:34 PM LADLE POURER us Jillian Joyce MD URINE ORDERABLES Edited INTERFACE SYSTEM Refer to clinic/hospital department * PT AND APTT (04/30/2007 7:35 PM LADLE POURER) PROTIME 15.1 13.0 - 15.7 Secs INTERFACE SYSTEM Comment: As of 06 note change in normal range. INR 1.1 INTERFACE SYSTEM Comment: Expected Values for INR: DVT/PE Goal INR 2.5; range 2.0 - 3.0 Valve Replacement Tissue Goal INR 2.5; range 2.0 - 3.0 Mechanical Goal INR 3.0; range 2.5 - 3.5 POST-WA Goal INR 2.5; range 2.0 - 3.0 [...] in APTT Normal Range. 04/30/2007 7:35 PM LADLE POURER Jillian Joyce MD HEMATOLOGY ORDERABLES Edit ed Performing Organization Address City/[facility]/ZIP Co de Phone Number INTERFACE SYSTEM Refer to clinic/hospital department * (ABNORMAL) CBC WITH DIFFERENTIAL (04/30/2007 7:35 PM LADLE POURER) WBC 18.3(H) 4.5 - 11.0 K/ul INTERFACE [...] 0.2 K/ul INTERFACE SYSTEM 04/30/2007 7:35 PM LADLE POURER Jillian Joyce MD HEMATOLOGY ORDERABLES Edit ed INTERFACE SYSTEM Refer to clinic/hospital department * (ABNORMAL) COMPREHENSIVE METABOLIC PANEL (04/30/2007 7:35 PM LADLE POURER) GLUCOSE 103 70 - 110 mg/dL INTERFACE [...] 295 mOsm/Kg INTERFACE SYSTEM 04/30/2007 7:35 PM LADLE POURER us Jillian Joyce MD CHEMISTRY ORDERABLES Edite d Performing Organization Address [facility] Phone Number INTERFACE SYSTEM Refer to clinic/hospital department * LIPASE (04/30/2007 7:35 PM LADLE POURER) LIPASE 23 6 - 51 U/L INTERFACE SYSTEM 04/30/2007 7:35 PM LADLE POURER Jillian Joyce MD CHEMISTRY ORDERABLES Edite d Performing Organization Address [facility] Co sd Phone Number INTERFACE SYSTEM Refer to clinic/hospital department documented in this encounter Visit Diagnoses Diagnosis Other acute pain- Primary documented in this encounter Additional Health Concerns Infection Onset Date Last Indicated Resolved Time VRE Comment:Urine 10/30/13 Resolved 11/04/2013 11/04/2013 8 10:33 AM LADLE POURER R/O COVID-19 12/25/2019 12/25/2019 12/26/2019 2:46 PM CDT R/O COVID-19 05/09/2020 05/09/2020 05/09/2020 12:1 7 PM LADLE POURER documented as of this encounter Care Teams Supervising Editor Trailer Relationship Specialty Start Date End Date Dara Tavera FNP [address] [place] [phone] PCP - General NURSE PRACTITIONER 10/13/18 documented as of this encounter
--- OUTSIDE RECORDS SUMMARY | 2025-05-08 18:43 | XMS_ITS | Encounter Summary ---
Author Organization [facility] Address [address] [place] [address] Care Team Providers Care Band Tier Name Role Phone Dara Tavera Primary Care Provider [phone] Encounter Details Date Type Department Care Team (Latest Contact Info) Description 07/02/1997 Outpatient Historical [facility] Roney Arora MD [address] [facility] [address] [place] [address] Unspecified osteomyelitis, other specified site (Primary Dx) Social History Tobacco Use Types Packs/Day Years Used Date Smoking Tobacco: Never Assessed Comments Unknown Sex and Gender Information Value Date Recorded Sex Assigned at Not on file Legal Sex Female 5:22 AM FAST FOOD ATTENDANT Gender Identity Not on file Sexual Orientation Not on file documented as of this encounter Plan of Treatment Not on file documented as of this encounter Visit Diagnoses Diagnosis Unspecified osteomyelitis, other specified site- Primary documented in this encounter Additional Health Concerns Infection Onset Date Last Indicated Resolved Time VRE Comment:Urine 10/30/13 Resolved 11/04/2013 11/04/2013 8 10:33 AM FAST FOOD ATTENDANT R/O COVID-19 12/25/2019 12/25/2019 12/26/2019 2:46 PM CDT R/O COVID-19 05/09/2020 05/09/2020 05/09/2020 12:1 7 PM FAST FOOD ATTENDANT documented as of this encounter Care Teams Band Tier Relationship Specialty Start Date End Date Dara Tavera FNP [address] [place] [phone] PCP - General NURSE PRACTITIONER 10/13/18 documented as of this encounter
--- OUTSIDE RECORDS SUMMARY | 2025-05-08 18:43 | XMS_ITS | Encounter Summary ---
Author Organization [facility] Address [address] [place] [address] Care Team Providers Care Manager Costing Name Role Phone Dara Tavera AMANDEEP Primary Care Provider Encounter Details Date Type Department Care Team (Late st Contact Info) Description 08/21/2007 Emergency [facility] Emergency Department [address] [place] [address] Ed, Physician NO ADDRESS ON FILE Flex Ricks MD NO ADDRESS ON FILE Social History Tobacco Use Types Packs/Day Years Used Date Smoking Tobacco: Never Assessed Comments Unknown Sex and Gender Information Value Date Recorded Sex Assigned at Not on file Legal Sex Female 5:22 AM TRIPE COOKER Gender Identity Not on file Sexual Orientation Not on file documented as of this encounter Plan of Treatment Not on file documented as of this encounter Procedures Procedure Name Priority Date/Time Associated Diagnosis Comments CT ABDOMEN PELVIS WO CONTRAST Routine 08/21/2007 11:56 PM TRIPE COOKER CBC WITH DIFFERENTIAL Stat 08/21/2007 11:44 PM TRIPE COOKER BASIC METABOLIC PANEL Stat 08/21/2007 11:44 PM TRIPE COOKER URINALYSIS W/REFLEX MICROSCOPIC Stat 08/21/2007 10:16 PM TRIPE COOKER documented in this encounter Results * CT ABDOMEN PELVIS WO CONTRAST (08/21/2007 11:56 PM TRIPE COOKER) Anatomical Region Laterality Modality Abdomen Other 08/21/2007 11:5 6 PM TRIPE COOKER Narrative 08/22/2007 12:[address] Scan For Renal Colic: Date: 08/21/2007 [...] * CBC WITH DIFFERENTIAL (08/21/2007 11:44 PM TRIPE COOKER) LYMPHOCYTE ABSOLUTE 2.5 1.2 - 4.0 K/ul [facility] LYMPHOCYTES 24.0 24.0 - 44.0 % [facility] MCV 88.3 84.0 - 103.0 Fl [facility] BASOPHILS 0.6 0.0 - 1.0 % [facility] MPV 9.8 8.9 - 12.8 Fl [facility] BASOPHILS ABSOLUTE 0.1 0.0 - 0.2 K/ul [facility] HEMOGLOBIN 12.6 12.0 - 16.0 g/dL [facility] MONOCYTES 4.8 2.0 - 10.0 % [facility] RDW 14.0 11.0 - 14.5 % [facility] MONOCYTE ABSOLUTE 0.5 0.1 - 0.6 K/ul [facility] WBC 10.5 4.5 - 11.0 K/ul [facility] NEUTROPHILS 68.9 42.2 - 75.2 % [facility] MCH 28.9 27.0 - 34.0 pg [facility] NEUTROPHIL ABSOLUTE 7.2 2.0 - 8.0 K/ul [facility] HEMATOCRIT 38.5 36.0 - 46.0 % [facility] PLATELETS 284 140 - 440 K/ul [facility] EOSINOPHIL ABSOLUTE 0.2 0.0 - 0.7 K/ul [facility] EOSINOPHILS 1.7 0.0 - 7.0 % [facility] RBC 4.36 4.20 - 5.40 Mil/ul [facility] MCHC 32.7 30.0 - 35.0 g/dL [facility] Blood specimen (specimen) 08/21/2007 11:44 PM TRIPE COOKER 08/21/2007 11:49 PM TRIPE COOKER us Flex Ricks MD HEMATOLOGY ORDERABLES Destiny ricks Result [facility] [address] [place] [address] * (ABNORMAL) BASIC METABOLIC PANEL (08/21/2007 11:44 PM TRIPE COOKER) CREATININE 0.8 0.7 - 1.2 mg/dL [facility] CALCIUM 9.8 8.4 - 10.5 mg/dL [facility] GLUCOSE 94 70 - 110 mg/dL [facility] CHLORIDE 112(H) 95 - 110 mEq/L [facility] SODIUM 139 136 - 145 mEq/L [facility] ANION GAP 11 9 - 20 mEq/L [facility] BUN 16 7 - 17 mg/dL [facility] CO2 20(L) 22 - 32 mmol/l [facility] OSMOLALITY, CALCULATED 286 275 - 295 mOsm/Kg [facility] POTASSIUM 3.6 3.5 - 5.0 mEq/L [facility] Blood specimen (specimen) 08/21/2007 11:44 PM TRIPE COOKER 08/21/2007 11:49 PM TRIPE COOKER Flex Ricks MD CHEMISTRY ORDERABLES Final Result [facility] [address] [place] [address] * URINALYSIS (08/21/2007 10:16 PM TRIPE COOKER) Pathologist [facility] CLARITY UA Clear Clear [facility] GLUCOSE UA NEGATIVE NEGATIVE [facility] SPECIFIC GRAVITY UA 1.025 <=1.005 [facility] PH UA 6.5 5.0 - 9.0 [facility] BILIRUBIN UA NEGATIVE NEGATIVE [facility] LEUKOCYTE ESTERASE UA NEGATIVE NEGATIVE [facility] MICRO EXAM No No [facility] KETONES UA NEGATIVE NEGATIVE [facility] COLOR UA Yellow Straw [facility] PROTEIN UA NEGATIVE NEGATIVE [facility] BLOOD UA NEGATIVE NEGATIVE [facility] NITRITE UA NEGATIVE NEGATIVE [facility] UROBILINOGEN UA 0.2 0.2 [facility] Urine, clean catch 08/21/2007 10:16 PM TRIPE COOKER 08/21/2007 10:16 PM TRIPE COOKER us Physician Sj Ed URINE ORDERABLES Final Result Performing Organization Address City/State/[facility] Co de Phone Number [facility] [address] [place] [address] documented in this encounter Visit Diagnoses Not on filedocumented in this encounter Additional Health Concerns Infection Onset Date Last Indicated Resolved Time VRE Comment:Urine 10/30/13 Resolved 11/04/2013 11/04/2013 8 10:33 AM TRIPE COOKER R/O COVID-19 12/25/2019 12/25/2019 12/26/2019 2:46 PM CDT R/O COVID-19 05/09/2020 05/09/2020 05/09/2020 12:1 7 PM TRIPE COOKER documented as of this encounter Care Teams Manager Costing Relationship Specialty Start Date End Date Dara Tavera FNP [address] [place] [phone] PCP - General NURSE PRACTITIONER 10/13/18 documented as of this encounter
--- OUTSIDE RECORDS SUMMARY | 2025-05-08 18:43 | XMS_ITS | Encounter Summary ---
Author Organization [facility] Address [address] [place] [address] Care Team Providers Care Slitter Creaser Slotter Helper Name Role Phone Dara Tavera AMANDEEP Primary Care Provider Encounter Details Date Type Department Care Team (Late st Contact Info) Description 07/22/2007 Emergency [facility] Emergency Department [address] [place] [address] Ed, Physician NO ADDRESS ON FILE Amaury De La Rosa MD NO ADDRESS ON FILE Social History Tobacco Use Types Packs/Day Years Used Date Smoking Tobacco: Never Assessed Comments Unknown Sex and Gender Information Value Date Recorded Sex Assigned at Not on file Legal Sex Female 5:22 AM DECOMMISSIONING WELL SITE MANAGER Gender Identity Not on file Sexual Orientation Not on file documented as of this encounter Plan of Treatment Not on file documented as of this encounter Procedures Procedure Name Priority Date/Time Associated Diagnosis Comments URINALYSIS MICROSCOPY ONLY Routine 07/22/2007 12:38 PM DECOMMISSIONING WELL SITE MANAGER URINALYSIS W/REFLEX MICROSCOPIC Routine 07/22/2007 12:38 PM DECOMMISSIONING WELL SITE MANAGER URINE CULTURE Stat 07/22/2007 12:38 PM DECOMMISSIONING WELL SITE MANAGER documented in this encounter Results * (ABNORMAL) URINALYSIS MICROSCOPY ONLY (07/22/2007 12:38 PM DECOMMISSIONING WELL SITE MANAGER) WBC URINE None Seen 0 - 2 INTERFACE SYSTEM RBC UA None Seen 0 - 2 INTERFACE SYSTEM HYALINE CAST None Seen 0 - 2 INTERFA CE SYSTEM BACTERIA UA Few(A) None Seen INTERFAC E SYSTEM 07/22/2007 12:3 8 PM DECOMMISSIONING WELL SITE MANAGER Amaury De La Rosa MD URINE ORDERABLES Edited Performing Organization Address [facility] Phone Number INTERFACE SYSTEM Refer to clinic/hospital department * (ABNORMAL) URINALYSIS (07/22/2007 12:38 PM DECOMMISSIONING WELL SITE MANAGER) COLOR UA Dark Yellow Straw INTERFAC [...] No INTERFACE SYSTEM 07/22/2007 12:3 8 PM DECOMMISSIONING WELL SITE MANAGER Amaury De La Rosa MD URINE ORDERABLES Edited Performing Organization Address [facility] Phone Number INTERFACE SYSTEM Refer to clinic/hospital department * URINE CULTURE (07/22/2007 12:38 PM DECOMMISSIONING WELL SITE MANAGER) FINAL REPORT No growth INTERFA CE SYSTEM 07/22/2007 12:3 8 PM DECOMMISSIONING WELL SITE MANAGER 07/22/2007 3:01 PM DECOMMISSIONING WELL SITE MANAGER Result [facility] Amaury De La Rosa MD MICROBIOLOGY - GENERAL ORDERABLE S Final Result Performing Organization Address [facility] Phone Number INTERFACE SYSTEM Refer to clinic/hospital department documented in this encounter Visit Diagnoses Not on filedocumented in this encounter Additional Health Concerns Infection Onset Date Last Indicated Resolved Time VRE Comment:Urine 10/30/13 Resolved 11/04/2013 11/04/2013 8 10:33 AM DECOMMISSIONING WELL SITE MANAGER R/O COVID-19 12/25/2019 12/25/2019 12/26/2019 2:46 PM CDT R/O COVID-19 05/09/2020 05/09/2020 05/09/2020 12:1 7 PM DECOMMISSIONING WELL SITE MANAGER documented as of this encounter Care Teams Slitter Creaser Slotter Helper Relationship Specialty Start Date End Date Dara Tavera FNP [address] [place] [phone] PCP - General NURSE PRACTITIONER 10/13/18 documented as of this encounter
--- OUTSIDE RECORDS SUMMARY | 2025-05-08 18:43 | XMS_ITS | Encounter Summary ---
Author Organization [facility] Address [address] [place] [address] Care Team Providers Care Census Enumerator Name Role Phone Dara Tavera Primary Care Provider Encounter Details Date Type Department Care Team (Late st Contact Info) Description 07/16/2007 [facility] [address] [place] [address] Tej Will MD [address] [address] Social History Tobacco Use Types Packs/Day Years Used Date Smoking Tobacco: Never Assessed Comments Unknown Sex and Gender Information Value Date Recorded Sex Assigned at Not on file Legal Sex Female 5:22 AM FLATWORK IRONER Gender Identity Not on file Sexual Orientation Not on file documented as of this encounter Plan of Treatment Not on file documented as of this encounter Visit Diagnoses Not on filedocumented in this encounter Additional Health Concerns Infection Onset Date Last Indicated Resolved Time VRE Comment:Urine 10/30/13 Resolved 11/04/2013 11/04/2013 8 10:33 AM FLATWORK IRONER R/O COVID-19 12/25/2019 12/25/2019 12/26/2019 2:46 PM CDT R/O COVID-19 05/09/2020 05/09/2020 05/09/2020 12:1 7 PM FLATWORK IRONER documented as of this encounter Care Teams Census Enumerator Relationship Specialty Start Date End Date Dara Tavera FNP [address] [place] [phone] PCP - General NURSE PRACTITIONER 10/13/18 documented as of this encounter
--- OUTSIDE RECORDS SUMMARY | 2025-05-08 18:43 | XMS_ITS | Encounter Summary ---
Author Organization [facility] Address [address] [place] [address] Care Team Providers Care Custom Harvester Name Role Phone Dara Tavera AMANDEEP Primary Care Provider Encounter Details Date Type Department Care Team (Late st Contact Info) Description 05/21/2007 Emergency [facility] Emergency Department [address] [place] [address] Ed, Physician NO ADDRESS ON FILE Rory Lynn MD NO ADDRESS ON FILE Social History Tobacco Use Types Packs/Day Years Used Date Smoking Tobacco: Never Assessed Comments Unknown Sex and Gender Information Value Date Recorded Sex Assigned at Not on file Legal Sex Female 5:22 AM GAMBLING MONITOR Gender Identity Not on file Sexual Orientation Not on file documented as of this encounter Plan of Treatment Not on file documented as of this encounter Procedures Procedure Name Priority Date/Time Associated Diagnosis Comments CBC WITH DIFFERENTIAL Routine 05/21/2007 6:18 PM GAMBLING MONITOR documented in this encounter Results * (ABNORMAL) CBC WITH DIFFERENTIAL (05/21/2007 6:18 PM GAMBLING MONITOR) WBC 9.5 4.5 - 11.0 K/ul INTERFACE [...] 0.2 K/ul INTERFACE SYSTEM 05/21/2007 6:18 PM GAMBLING MONITOR us Rory Lynn MD HEMATOLOGY ORDERABLES Hakan earl INTERFACE SYSTEM Refer to clinic/hospital department documented in this encounter Visit Diagnoses Not on filedocumented in this encounter Additional Health Concerns Infection Onset Date Last Indicated Resolved Time VRE Comment:Urine 10/30/13 Resolved 11/04/2013 11/04/2013 8 10:33 AM GAMBLING MONITOR R/O COVID-19 12/25/2019 12/25/2019 12/26/2019 2:46 PM CDT R/O COVID-19 05/09/2020 05/09/2020 05/09/2020 12:1 7 PM GAMBLING MONITOR documented as of this encounter Care Teams Custom Harvester Relationship Specialty Start Date End Date Draa Tavera FNP [address] [place] [phone] PCP - General NURSE PRACTITIONER 10/13/18 documented as of this encounter
--- OUTSIDE RECORDS SUMMARY | 2025-05-08 18:43 | XMS_ITS | Encounter Summary ---
Author Organization [facility] Address [address] [place] [address] Care Team Providers Care Hairpiece Stylist Name Role Phone Dara Tavera Primary Care Provider Encounter Details Date Type Department Care Team (Late st Contact Info) Description 07/12/[address] [facility] Emergency Department [address] [place] [address] Ed, Physician NO ADDRESS ON FILE Oniel Sainz MD [address] [place] [address] Social History Tobacco Use Types Packs/Day Years Used Date Smoking Tobacco: Never Assessed Comments Unknown Sex and Gender Information Value Date Recorded Sex Assigned at Not on file Legal Sex Female 5:22 AM MUFFLER HAND Gender Identity Not on file Sexual Orientation Not on file documented as of this encounter Plan of Treatment Not on file documented as of this encounter Visit Diagnoses Not on filedocumented in this encounter Additional Health Concerns Infection Onset Date Last Indicated Resolved Time VRE Comment:Urine 10/30/13 Resolved 11/04/2013 11/04/2013 8 10:33 AM MUFFLER HAND R/O COVID-19 12/25/2019 12/25/2019 12/26/2019 2:46 PM CDT R/O COVID-19 05/09/2020 05/09/2020 05/09/2020 12:1 7 PM MUFFLER HAND documented as of this encounter Care Teams Hairpiece Stylist Relationship Specialty Start Date End Date Dara Tavera FNP [address] [place] [phone] PCP - General NURSE PRACTITIONER 10/13/18 documented as of this encounter
--- OUTSIDE RECORDS SUMMARY | 2025-05-08 18:43 | XMS_ITS | Encounter Summary ---
Author Organization [facility] Address [address] [place] [address] Care Team Providers Care Financial Project Manager Name Role Phone Dara Tavera AMANDEEP Primary Care Provider Encounter Details Date Type Department Care Team (Latest Contact Info) Description 02/20/[address] [facility] [address] [place] [address] AMBULANCE, [facility] Hemorrhage of Rectum and Anus; Unspecified Tachycardia; [...] file Legal Sex Female 5:22 AM CHIEF LIBRARIAN WORK WITH BLIND Gender Identity Not on file Sexual Orientation [...] Resolved 11/04/2013 11/04/2013 8 10:33 AM CHIEF LIBRARIAN WORK WITH BLIND R/O COVID-19 12/25/2019 12/25/2019 12/26/2019 2:46 PM CDT R/O COVID-19 05/09/2020 05/09/2020 05/09/2020 12:1 7 PM CHIEF LIBRARIAN WORK WITH BLIND documented as of this encounter Care Teams Financial Project Manager Relationship Specialty Start Date End Date Dara Tavera FNP [address] [place] [address] PCP - General NURSE PRACTITIONER 10/13/18 documented as of this encounter
--- OUTSIDE RECORDS SUMMARY | 2025-05-08 18:43 | XMS_ITS | Encounter Summary ---
Author Organization [facility] Address [address] [place] [address] Care Team Providers Care Inspector Technician Name Role Phone Dara Tavera AMANDEEP Primary Care Provider Encounter Details Date Type Department Care Team (Latest Contact Info) Description 04/22/2008 Outpatient Historical [facility] [address] [place] [address] [facility] Aphasia; Unspecified Tachycardia; Chronic Airway Obstruction, [...] on file Legal Sex Female 5:22 AM SAAS ARCHITECT Gender Identity Not on file Sexual [...] 10/30/13 Resolved 11/04/2013 11/04/2013 8 10:33 AM SAAS ARCHITECT R/O COVID-19 12/25/2019 12/25/2019 12/26/2019 2:46 PM CDT R/O COVID-19 05/09/2020 05/09/2020 05/09/2020 12:1 7 PM SAAS ARCHITECT documented as of this encounter Care Teams Inspector Technician Relationship Specialty Start Date End Date Dara Tavrea FNP [address] [place] [phone] PCP - General NURSE PRACTITIONER 10/13/18 documented as of this encounter
--- OUTSIDE RECORDS SUMMARY | 2025-05-08 18:43 | XMS_ITS | Encounter Summary ---
Author Organization [facility] Address [address] [place] [address] Care Team Providers Care Middle [employer] Director Name Role Phone Dara Tavera FIBER WORKER Primary Care Provider Encounter Details Date Type Department Care Team (Late st Contact Info) Description 07/31/2007 Emergency [facility] Emergency Department [address] [place] [address] Ed, Physician NO ADDRESS ON FILE Silvia Mayers MD [address] [place] [address] Social History Tobacco Use Types Packs/Day Years Used Date Smoking Tobacco: Never Assessed Comments Unknown Sex and Gender Information Value Date Recorded Sex Assigned at Not on file Legal Sex Female 5:22 AM PERSONALIZED LIVING MANAGER Gender Identity Not on file Sexual Orientation Not on file documented as of this encounter Plan of Treatment Not on file documented as of this encounter Procedures Procedure Name Priority Date/Time Associated Diagnosis Comments CT ABDOMEN PELVIS W CONTRAST Routine 08/01/2007 2:49 AM PERSONALIZED LIVING MANAGER CBC WITH DIFFERENTIAL Stat 07/31/2007 11:25 PM PERSONALIZED LIVING MANAGER COMPREHENSIVE METABOLIC PANEL Stat 07/31/2007 11:25 PM PERSONALIZED LIVING MANAGER URINALYSIS MICROSCOPY ONLY Stat 07/31/2007 11:20 PM PERSONALIZED LIVING MANAGER URINALYSIS W/REFLEX MICROSCOPIC Stat 07/31/2007 11:20 PM PERSONALIZED LIVING MANAGER documented in this encounter Results * CT ABDOMEN PELVIS W CONTRAST (08/01/2007 2:49 AM PERSONALIZED LIVING MANAGER) Anatomical Region Laterality Modality Abdomen Other 08/01/2007 2:49 AM PERSONALIZED LIVING MANAGER Narrative 08/01/2007 2:[address]ED LIVING MANA[address] of the abdomen and pelvis was [...] (ABNORMAL) CBC WITH DIFFERENTIAL (07/31/2007 11:25 PM PERSONALIZED LIVING MANAGER) LYMPHOCYTE ABSOLUTE 2.8 1.2 - 4.0 K/ul [facility] MCV 87.2 84.0 - 103.0 Fl [facility] MPV 10.0 8.9 - 12.8 Fl [facility] BASOPHILS ABSOLUTE 0.1 0.0 - 0.2 K/ul [facility] BASOPHILS 0.6 0.0 - 1.0 % [facility] HEMOGLOBIN 13.2 12.0 - 16.0 g/dL [facility] RDW 14.8(H) 11.0 - 14.5 % [facility] MONOCYTE ABSOLUTE 0.7(H) 0.1 - 0.6 K/ul [facility] MONOCYTES 6.7 2.0 - 10.0 % [facility] WBC 9.7 4.5 - 11.0 K/ul [facility] MCH 29.1 27.0 - 34.0 pg [facility] NEUTROPHIL ABSOLUTE 6.1 2.0 - 8.0 K/ul [facility] NEUTROPHILS 62.8 42.2 - 75.2 % [facility] HEMATOCRIT 39.6 36.0 - 46.0 % [facility] EOSINOPHILS 1.4 0.0 - 7.0 % [facility] PLATELETS 272 140 - 440 K/ul [facility] EOSINOPHIL ABSOLUTE 0.1 0.0 - 0.7 K/ul [facility] RBC 4.54 4.20 - 5.40 Mil/ul [facility] LYMPHOCYTES 28.5 24.0 - 44.0 % [facility] MCHC 33.3 30.0 - 35.0 g/dL [facility] Blood specimen (specimen) 07/31/2007 11:25 PM PERSONALIZED LIVING MANAGER 07/31/2007 11:32 PM PERSONALIZED LIVING MANAGER us Silvia Mayers MD HEMATOLOGY ORDERABLES Final Res ult [facility] [address] [place] [address] * (ABNORMAL) COMPREHENSIVE METABOLIC PANEL (07/31/2007 11:25 PM PERSONALIZED LIVING MANAGER) BUN 20(H) 7 - 17 mg/dL [facility] CO2 19(L) 22 - 32 mmol/l [facility] ANION GAP 11 9 - 20 mEq/L [facility] AST 14 8 - 33 U/L [facility] POTASSIUM 3.6 3.5 - 5.0 mEq/L [facility] GLOBULIN (CALC) 3.0 2.4 - 3.9 g/dL [facility] ALBUMIN 4.3 3.5 - 5.0 g/dL [facility] CREATININE 0.9 0.7 - 1.2 mg/dL [facility] CALCIUM 9.4 8.4 - 10.5 mg/dL [facility] ALT 21 4 - 36 IU/L [facility] OSMOLALITY, CALCULATED 291 275 - 295 mOsm/Kg [facility] GLUCOSE 113(H) 70 - 110 mg/dL [facility] CHLORIDE 114(H) 95 - 110 mEq/L [facility] ALKALINE PHOSPHATASE 154(H) 25 - 100 U/L [facility] ALBUMIN/GLOBULIN RATIO 1.4 1.0 - 2.3 [facility] SODIUM 140 136 - 145 mEq/L [facility] TOTAL PROTEIN 7.3 6.3 - 8.2 g/dL [facility] BILIRUBIN TOTAL 0.2(L) 0.3 - 1.2 mg/dL [facility] Blood specimen (specimen) 07/31/2007 11:25 PM PERSONALIZED LIVING MANAGER 07/31/2007 11:32 PM PERSONALIZED LIVING MANAGER Result [facility] Silvia Mayers MD CHEMISTRY ORDERABLES Final Resu lt Performing Organization Address [facility] de Phone Number [facility] [address] [place] [address] * (ABNORMAL) URINALYSIS (07/31/2007 11:20 PM PERSONALIZED LIVING MANAGER) CLARITY UA Clear Clear [facility] SPECIFIC GRAVITY UA 1.031 <=1.005 [facility] GLUCOSE UA NEGATIVE NEGATIVE [facility] PH UA 6.0 5.0 - 9.0 [facility] BILIRUBIN UA NEGATIVE NEGATIVE [facility] LEUKOCYTE ESTERASE UA NEGATIVE NEGATIVE [facility] KETONES UA NEGATIVE NEGATIVE [facility] MICRO EXAM Yes(A) No [facility] COLOR UA Yellow Straw [facility] PROTEIN UA NEGATIVE NEGATIVE [facility] BLOOD UA NEGATIVE NEGATIVE [facility] NITRITE UA NEGATIVE NEGATIVE [facility] UROBILINOGEN UA 0.2 0.2 [facility] Urine, clean catch 07/31/2007 11:20 PM PERSONALIZED LIVING MANAGER 07/31/2007 11:23 PM PERSONALIZED LIVING MANAGER Silvia Mayers MD URINE ORDERABLES Final Result Performing Organization Address [facility] de Phone Number [facility] [address] [place] [address] * URINALYSIS MICROSCOPY ONLY (07/31/2007 11:20 PM PERSONALIZED LIVING MANAGER) HYALINE CAST None Seen 0 - 2 [facility] WBC URINE None Seen 0 - 2 [facility] BACTERIA UA None Seen None Seen [facility] RBC UA None Seen 0 - 2 [facility] Urine specimen (specimen) 07/31/2007 11:20 PM PERSONALIZED LIVING MANAGER 07/31/2007 11:23 PM PERSONALIZED LIVING MANAGER Silvia Mayers MD URINE ORDERABLES Final Result [facility] [address] [place] [address] documented in this encounter Visit Diagnoses Not on filedocumented in this encounter Additional Health Concerns Infection Onset Date Last Indicated Resolved Time 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
--- OUTSIDE RECORDS SUMMARY | 2025-05-08 18:43 | XMS_ITS | Encounter Summary ---
Author Organization [facility] Address [address] [place] [address] Care Team Providers Care Hop Worker Name Role Phone Dara Tavera Primary Care Provider Encounter Details Date Type Department Care Team (Late st Contact Info) Description 08/13/2007 Outpatient [facility] [address] [place] [address] Tej Will MD [address] [address] Social History Tobacco Use Types Packs/Day Years Used Date Smoking Tobacco: Never Assessed Comments Unknown Sex and Gender Information Value Date Recorded Sex Assigned at Not on file Legal Sex Female 5:22 AM SIEBEL CONSULTANT Gender Identity Not on file Sexual Orientation Not on file documented as of this encounter Plan of Treatment Not on file documented as of this encounter Visit Diagnoses Not on filedocumented in this encounter Additional Health Concerns Infection Onset Date Last Indicated Resolved Time 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
--- OUTSIDE RECORDS SUMMARY | 2025-05-08 18:43 | XMS_ITS | Encounter Summary ---
Author Organization [facility] Address [address] [place] [address] Care Team Providers Care Claims Administrator Name Role Phone Dara Tavera Primary Care Provider [phone] Encounter Details Date Type Department Care Team (Late st Contact Info) Description 04/07/2008 Outpatient Historical [facility] [address] 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
--- OUTSIDE RECORDS SUMMARY | 2025-05-08 18:43 | XMS_ITS | Encounter Summary ---
Author Organization [facility] Address [address] [place] [address] Care Team Providers Care Coagulating Operator Name Role Phone Dara Tavera Primary Care Provider Encounter Details Date Type Department Care Team (Late st Contact Info) Description 07/20/2007 Outpatient Historical [facility] [address] [place] [address] [facility] [address] [place] [address] Prasad Carpenter MD NO ADDRESS ON FILE Social History Tobacco Use Types Packs/Day Years Used Date Smoking Tobacco: Never Assessed Comments Unknown Sex and Gender Information Value Date Recorded Sex Assigned at Not on file Legal Sex Female 5:22 AM DIRECTOR SUMMER SESSIONS Gender Identity Not on file Sexual Orientation Not on file documented as of this encounter Plan of Treatment Not on file documented as of this encounter Visit Diagnoses Not on filedocumented in this encounter Additional Health Concerns Infection Onset Date Last Indicated Resolved Time VRE Comment:Urine 10/30/13 Resolved 11/04/2013 11/04/2013 8 10:33 AM DIRECTOR SUMMER SESSIONS R/O COVID-19 12/25/2019 12/25/2019 12/26/2019 2:46 PM CDT R/O COVID-19 05/09/2020 05/09/2020 05/09/2020 12:1 7 PM DIRECTOR SUMMER SESSIONS documented as of this encounter Care Teams Coagulating Operator Relationship Specialty Start Date End Date Dara Tavera FNP [address] [place] [phone] PCP - General NURSE PRACTITIONER 10/13/18 documented as of this encounter
--- OUTSIDE RECORDS SUMMARY | 2025-05-08 18:43 | XMS_ITS | Encounter Summary ---
Author Organization [facility] Address [address] [place] [address] Care Team Providers Care Software Applications Engineer Name Role Phone Dara Tavera Primary Care Provider Encounter Details Date Type Department Care Team (Late st Contact Info) Description 05/12/2007 Emergency [facility] Emergency Department [address] [place] [address] Isaac Kovacs PA [address] [place], [place] [id number] Neck Sprain and Strain (Primary Dx) Social History Tobacco Use Types Packs/Day Years Used Date Smoking Tobacco: Never Assessed Comments Unknown Sex and Gender Information Value Date Recorded Sex Assigned at Not on file Legal Sex Female 5:22 AM CLEANER AND PRESSER Gender Identity Not on file Sexual Orientation Not on file documented as of this encounter Plan of Treatment Not on file documented as of this encounter Visit Diagnoses Diagnosis Sprain of neck- Primary documented in this encounter Additional Health Concerns Infection Onset Date Last Indicated Resolved Time VRE Comment:Urine 10/30/13 Resolved 11/04/2013 11/04/2013 8 10:33 AM CLEANER AND PRESSER R/O COVID-19 12/25/2019 12/25/2019 12/26/2019 2:46 PM CDT R/O COVID-19 05/09/2020 05/09/2020 05/09/2020 12:1 7 PM CLEANER AND PRESSER documented as of this encounter Care Teams Software Applications Engineer Relationship Specialty Start Date End Date Dara Tavera FNP [address] [place] [phone] PCP - General NURSE PRACTITIONER 10/13/18 documented as of this encounter
--- OUTSIDE RECORDS SUMMARY | 2025-05-08 18:44 | XMS_ITS | Encounter Summary ---
Author Organization [facility] Address [address] [place] [address] Care Team Providers Care Medical Asst Name Role Phone Dara Tavera QUARTER SEAMER Primary Care Provider Encounter Details Date Type Department Care Team (Late st Contact Info) Description 06/14/2007 Outpatient Historical [facility] Amaury De La Rosa MD NO ADDRESS ON FILE Richie Vargas Jr., MD [address] [place] [address] Social History Tobacco Use Types Packs/Day Years Used Date Smoking Tobacco: Never Assessed Comments Unknown Sex and Gender Information Value Date Recorded Sex Assigned at Not on file Legal Sex Female 5:22 AM MEETING SPECIALIST Gender Identity Not on file Sexual Orientation Not on file documented as of this encounter Plan of Treatment Not on file documented as of this encounter Procedures Procedure Name Priority Date/Time Associated Diagnosis Comments URINALYSIS W/REFLEX MICROSCOPIC Routine 06/15/2007 12:13 PM MEETING SPECIALIST POC GLUCOSE Routine 06/15/2007 11:42 AM MEETING SPECIALIST POC GLUCOSE Routine 06/15/2007 5:10 AM MEETING SPECIALIST CARDIAC ENZYMES Routine 06/15/2007 4:21 AM MEETING SPECIALIST CBC WITH DIFFERENTIAL Routine 06/15/2007 4:21 AM MEETING SPECIALIST TSH Routine 06/15/2007 4:21 AM MEETING SPECIALIST T4 FREE Routine 06/15/2007 4:21 AM MEETING SPECIALIST LIPID PANEL Routine 06/15/2007 4:21 AM MEETING SPECIALIST COMPREHENSIVE METABOLIC PANEL Routine 06/15/2007 4:21 AM MEETING SPECIALIST POC GLUCOSE Routine 06/15/2007 2:02 AM MEETING SPECIALIST CARDIAC ENZYMES Routine 06/14/2007 10:20 PM MEETING SPECIALIST CARDIAC ENZYMES Routine 06/14/2007 4:07 PM MEETING SPECIALIST CBC WITH DIFFERENTIAL Routine 06/14/2007 4:07 PM MEETING SPECIALIST PTT Routine 06/14/2007 4:07 PM MEETING SPECIALIST PROTIME-INR Routine 06/14/2007 4:07 PM MEETING SPECIALIST BASIC METABOLIC PANEL Routine 06/14/2007 4:07 PM MEETING SPECIALIST documented in this encounter Results * URINALYSIS (06/15/2007 12:13 PM MEETING SPECIALIST) COLOR UA Yellow Straw INTERFACE SYSTEM [...] No INTERFACE SYSTEM 06/15/2007 12:1 3 PM MEETING SPECIALIST us Richie Vargas Jr., MD URINE ORDERABLES Edite d INTERFACE SYSTEM Refer to clinic/hospital department * (ABNORMAL) POC GLUCOSE (06/15/2007 11:42 AM MEETING SPECIALIST) GLUCOSE POC 114(H) 60 - 100 mg/dL INTERFACE SYSTEM 06/15/2007 11:4 2 AM MEETING SPECIALIST Result Tracey Vargas Jr., MD POINT OF CARE TESTING Edited Performing Organization Address [facility] Phone Number INTERFACE SYSTEM Refer to clinic/hospital department * (ABNORMAL) POC GLUCOSE (06/15/2007 5:10 AM MEETING SPECIALIST) GLUCOSE POC 116(H) 60 - 100 mg/dL INTERFACE SYSTEM 06/15/2007 5:10 AM MEETING SPECIALIST Result Tracey Vargas Jr., MD POINT OF CARE TESTING Edited Performing Organization Address [facility] Phone Number INTERFACE SYSTEM Refer to clinic/hospital department * TSH (06/15/2007 4:21 AM MEETING SPECIALIST) TSH 1.340 0.350 - 5.500 uIU/ml INTERFACE SYSTEM 06/15/2007 4:21 AM MEETING SPECIALIST Result Tracey Vargas Jr., MD CHEMISTRY ORDERABLES E dited Performing Organization Address [facility] Phone Number INTERFACE SYSTEM Refer to clinic/hospital department * (ABNORMAL) T4 FREE (06/15/2007 4:21 AM MEETING SPECIALIST) T4 FREE 0.64(L) 0.89 - 1.76 ng/dL INTERFACE SYSTEM 06/15/2007 4:21 AM MEETING SPECIALIST Result Tracey Vargas Jr., MD CHEMISTRY ORDERABLES E dited Performing Organization Address City/[facility] Phone Number INTERFACE SYSTEM Refer to clinic/hospital department * (ABNORMAL) LIPID PANEL (06/15/2007 4:21 AM MEETING SPECIALIST) CHOLESTEROL 208(H) 75 - 200 mg/dL INTERFACE SYSTEM HDL 41 40 - 60 mg/dL INTERFACE SYSTEM TRIGLYCERIDE 206(H) 0 - 168 mg/dL INTERFACE SYSTEM CALCULATED LDL CHOLESTEROL 126 0 - 130 mg/dL INTERFACE SYSTEM CALCULATED TOTAL CHOLESTEROL TO HDL RATIO 5.07(H) 3.27 - 4.44 INTERFACE SYSTEM 06/15/2007 4:21 AM MEETING SPECIALIST Richie Vargas Jr., MD CHEMISTRY ORDERABLES E dited Performing Organization Address [facility] Phone Number INTERFACE SYSTEM Refer to clinic/hospital department * (ABNORMAL) COMPREHENSIVE METABOLIC PANEL (06/15/2007 4:21 AM MEETING SPECIALIST) GLUCOSE 94 70 - 110 mg/dL [...] 295 mOsm/Kg INTERFACE SYSTEM 06/15/2007 4:21 AM MEETING SPECIALIST Richie Vargas Jr., MD CHEMISTRY ORDERABLES E dited Performing Organization Address [facility] Phone Number INTERFACE SYSTEM Refer to clinic/hospital department * (ABNORMAL) CBC WITH DIFFERENTIAL (06/15/2007 4:21 AM MEETING SPECIALIST) WBC 13.1(H) 4.5 - 11.0 K/ul [...] 0.2 K/ul INTERFACE SYSTEM 06/15/2007 4:21 AM MEETING SPECIALIST Richie Vargas Jr., MD HEMATOLOGY ORDERABLES Edited Performing Organization Address [facility] de Phone Number INTERFACE SYSTEM Refer to clinic/hospital department * CARDIAC ENZYMES (06/15/2007 4:21 AM MEETING SPECIALIST) TROPONIN I <0.1 0.0 - 1.3 ng/mL INTERFACE SYSTEM CKMB 1.0 0.0 - 5.0 ng/mL INTERFACE SYSTEM 06/15/2007 4:21 AM MEETING SPECIALIST Amaury De La Rosa MD CHEMISTRY ORDERABLES Edited Performing Organization Address City/[facility]/ZIP Co de Phone Number INTERFACE SYSTEM Refer to clinic/hospital department * (ABNORMAL) POC GLUCOSE (06/15/2007 2:02 AM MEETING SPECIALIST) GLUCOSE POC 115(H) 60 - 100 mg/dL INTERFACE SYSTEM 06/15/2007 2:02 AM MEETING SPECIALIST us Richie Vargas Jr., MD POINT OF CARE TESTING Edited Performing Organization Address [facility] Phone Number INTERFACE SYSTEM Refer to clinic/hospital department * CARDIAC ENZYMES (06/14/2007 10:20 PM MEETING SPECIALIST) Pathologist [facility] TROPONIN I <0.1 0.0 - 1.3 ng/mL INTERFACE SYSTEM CKMB 0.3 0.0 - 5.0 ng/mL INTERFACE SYSTEM 06/14/2007 10:2 0 PM MEETING SPECIALIST Amaury De La Rosa MD CHEMISTRY ORDERABLES Edited Performing Organization Address [facility] Phone Number INTERFACE SYSTEM Refer to clinic/hospital department * (ABNORMAL) CBC WITH DIFFERENTIAL (06/14/2007 4:07 PM MEETING SPECIALIST) Pathologist [facility] WBC 14.3(H) 4.5 - 11.0 K/ul INTERFACE [...] 0.2 K/ul INTERFACE SYSTEM 06/14/2007 4:07 PM MEETING SPECIALIST Amaury De La Rosa MD HEMATOLOGY ORDERABLES Edited Performing Organization Address City/[facility] Phone Number INTERFACE SYSTEM Refer to clinic/hospital department * PTT (06/14/2007 4:07 PM MEETING SPECIALIST) PTT 34.4 21.6 - 35.6 Secs INTERFACE SYSTEM 06/14/2007 4:07 PM MEETING SPECIALIST Amaury De La Rosa MD HEMATOLOGY ORDERABLES Edited Performing Organization Address [facility] Phone Number INTERFACE SYSTEM Refer to clinic/hospital department * PROTIME-INR (06/14/2007 4:07 PM MEETING SPECIALIST) PROTIME 14.0 13.0 - 15.7 Secs INTERFACE SYSTEM INR 1.0 INTERFACE SYSTEM 06/14/2007 4:07 PM MEETING SPECIALIST Amaury De La Rosa MD HEMATOLOGY ORDERABLES Edited Performing Organization Address [facility] Phone Number INTERFACE SYSTEM Refer to clinic/hospital department * (ABNORMAL) BASIC METABOLIC PANEL (06/14/2007 4:07 PM MEETING SPECIALIST) GLUCOSE 90 70 - 110 mg/dL [...] 295 mOsm/Kg INTERFACE SYSTEM 06/14/2007 4:07 PM MEETING SPECIALIST Amaury De La Rosa MD CHEMISTRY ORDERABLES Edited Performing Organization Address City/[facility] de Phone Number INTERFACE SYSTEM Refer to clinic/hospital department * CARDIAC ENZYMES (06/14/2007 4:07 PM MEETING SPECIALIST) TROPONIN I <0.1 0.0 - 1.3 ng/mL INTERFACE SYSTEM CKMB 1.3 0.0 - 5.0 ng/mL INTERFACE SYSTEM 06/14/2007 4:07 PM MEETING SPECIALIST Amaury De La Rosa MD CHEMISTRY ORDERABLES Edited Performing Organization Address [facility] Phone Number INTERFACE SYSTEM Refer to clinic/hospital department documented in this encounter Visit Diagnoses Not on filedocumented in this encounter Additional Health Concerns Infection Onset Date Last Indicated Resolved Time VRE Comment:Urine 10/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
--- OUTSIDE RECORDS SUMMARY | 2025-05-08 18:44 | XMS_ITS | Encounter Summary ---
Author Organization [facility] Address [address] [place] [address] Care Team Providers Care Trading Analyst Name Role Phone Dara Tavera Primary Care Provider Encounter Details Date Type Department Care Team (Latest Contact Info) Description 01/05/2006 Outpatient Historical [facility] [address] [place] [address] AMBULANCE, [facility] Abdominal Pain, Unspecified Site (Primary Dx) Social History Tobacco Use Types Packs/Day Years Used Date Smoking Tobacco: Never Assessed Comments Unknown Sex and Gender Information Value Date Recorded Sex Assigned at Not on file Legal Sex Female 5:22 AM MEDICAL RECEPTION SPECIALIST Gender Identity Not on file Sexual Orientation Not on file documented as of this encounter Plan of Treatment Not on file documented as of this encounter Visit Diagnoses Diagnosis Abdominal pain, unspecified site- Primary documented in this encounter Additional Health Concerns Infection Onset Date Last Indicated Resolved Time 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
--- OUTSIDE RECORDS SUMMARY | 2025-05-08 18:44 | XMS_ITS | Encounter Summary ---
Author Organization [facility] Address [address] [place] [address] Care Team Providers Care Lodge Attendant Name Role Phone Dara Tavera AMANDEEP Primary Care Provider Encounter Details Date Type Department Care Team (Late st Contact Info) Description 04/04/2007 Emergency [facility] Emergency Department [address] [place] [address] Thiago Mota MD NO ADDRESS ON FILE Painful Respiration (Primary Dx) Social History Tobacco Use Types Packs/Day Years Used Date Smoking Tobacco: Never Assessed Comments Unknown Sex and Gender Information Value Date Recorded Sex Assigned at Not on file Legal Sex Female 5:22 AM PHYSICAL LABORATORY ASSISTANT Gender Identity Not on file Sexual [...] MD URINE ORDERABLES Edited Performing Organization Address [facility] [address] [facility] Phone Number INTERFACE SYSTEM Refer to clinic/hospital department * CARDIAC ENZYMES (04/04/2007 12:00 PM CDT) Pathologist [facility] TROPONIN I <0.1 0.0 - 1.3 ng/mL INTERFACE SYSTEM Comment: As of 06 the Troponin Reference Range has changed from 0.0-1.5 ng/ml to 0.0- 1.3 ng/ml due to a change in testing methodology. CKMB 0.7 0.0 - 5.0 ng/mL INTERFACE SYSTEM 04/04/2007 12:0 0 PM CDT Thiago Mota MD CHEMISTRY ORDERABLES Edited Performing Organization Address [facility] [address]/[facility] Phone Number INTERFACE SYSTEM Refer to clinic/hospital department documented in this encounter Visit Diagnoses Diagnosis Painful respiration- Primary documented in this encounter Additional Health Concerns Infection Onset Date Last Indicated Resolved Time VRE Comment:Urine 10/30/13 Resolved 11/04/2013 11/04/2013 8 10:33 AM PHYSICAL LABORATORY ASSISTANT R/O COVID-19 12/25/2019 12/25/2019 12/26/2019 2:46 PM CDT R/O COVID-19 05/09/2020 05/09/202005/09/2020 12:1 7 PM PHYSICAL LABORATORY ASSISTANT documented as of this encounter Care Teams Lodge Attendant Relationship Specialty Start Date End Date Dara Tavera FNP [address] [place] [phone] PCP - General NURSE PRACTITIONER 10/13/18 documented as of this encounter
--- OUTSIDE RECORDS SUMMARY | 2025-05-08 18:44 | XMS_ITS | Encounter Summary ---
Author Organization [facility] Address [address] [place] [address] Care Team Providers Care Dye Mixer Name Role Phone Dara Tavera Primary Care Provider [phone] Encounter Details Date Type Department Care Team (Latest Contact Info) Description 04/15/2006 Outpatient Historical [facility] [address] [place] [address] AMBULANCE, [facility] Unspecified Nonpsychotic Mental Disorder (Primary Dx) Social History Tobacco Use Types Packs/Day Years Used Date Smoking Tobacco: Never Assessed Comments Unknown Sex and Gender Information Value Date Recorded Sex Assigned at Not on file Legal Sex Female 5:22 AM CLINICAL DATA RESEARCH Gender Identity Not on file Sexual Orientation Not on file documented as of this encounter Plan of Treatment Not on file documented as of this encounter Visit Diagnoses Diagnosis Unspecified nonpsychotic mental disorder- Primary documented in this encounter Additional Health Concerns Infection Onset Date Last Indicated Resolved Time VRE Comment:Urine 10/30/13 Resolved 11/04/2013 11/04/2013 8 10:33 AM CLINICAL DATA RESEARCH R/O COVID-19 12/25/2019 12/25/2019 12/26/2019 2:46 PM CDT R/O COVID-19 05/09/2020 05/09/2020 05/09/2020 12:1 7 PM CLINICAL DATA RESEARCH documented as of this encounter Care Teams Dye Mixer Relationship Specialty Start Date End Date Dara Tavera FNP [address] [place] [phone] PCP - General NURSE PRACTITIONER 10/13/18 documented as of this encounter
--- OUTSIDE RECORDS SUMMARY | 2025-05-08 18:44 | XMS_ITS | Encounter Summary ---
Author Organization [facility] Address [address] [place] [address] Care Team Providers Care Residential Green Building Designer Name Role Phone Dara Tavera AMANDEEP Primary Care Provider Encounter Details Date Type Department Care Team (Late st Contact Info) Description 04/18/2007 Inpatient Historical [facility] Pawan Rosario MD [address] [place] [address] Bipolar Affective, Mixed, Sev w/ Psych (CMS/HCC) (Primary Dx) Social History Tobacco Use Types Packs/Day Years Used Date Smoking Tobacco: Never Assessed Comments Unknown Sex and Gender Information Value Date Recorded Sex Assigned at Not on file Legal Sex Female 5:22 AM FISHING TOOL OPERATOR Gender Identity Not on file Sexual Orientation Not on file documented as of this encounter Plan of Treatment Not on file documented as of this encounter Procedures Procedure Name Priority Date/Time Associated Diagnosis Comments URINALYSIS W/REFLEX MICROSCOPIC Routine 04/22/2007 9:05 AM FISHING TOOL OPERATOR LIPASE Routine 04/18/2007 10:54 AM CDT AMYLASE Routine 04/18/2007 10:54 AM CDT CBC WITH DIFFERENTIAL Routine 04/18/2007 10:48 AM CDT TSH Routine 04/18/2007 10:48 AM CDT ETHANOL LEVEL Routine 04/18/2007 10:48 AM CDT COMPREHENSIVE METABOLIC PANEL Routine 04/18/2007 10:48 AM CDT DRUG SCREEN, URINE Routine 04/18/2007 9: 47 AM CDT documented in this encounter Results * URINALYSIS (04/22/2007 9:05 AM FISHING TOOL OPERATOR) COLOR UA Yellow Straw INTERFACE SYSTEM [...] No No INTERFACE SYSTEM 04/22/2007 9:05 AM FISHING TOOL OPERATOR us Pawan Rosario MD URINE ORDERABLES Edited Performing Organization Address [facility] Phone Number INTERFACE SYSTEM Refer to clinic/hospital department * LIPASE (04/18/2007 10:54 AM CDT) LIPASE 36 6 - 51 U/L INTERFACE SYSTEM 04/18/2007 10:5 4 AM CDT Benedicto Rojo MD CHEMISTRY ORDERABLES Edited Performing Organization Address [facility] Phone Number INTERFACE SYSTEM Refer to clinic/hospital department * AMYLASE (04/18/2007 10:54 AM CDT) AMYLASE 46 20 - 104 U/L INTERFACE SYSTEM 04/18/2007 10:5 4 AM CDT Benedicto Rojo MD CHEMISTRY ORDERABLES Edited Performing Organization Address [facility] Phone Number INTERFACE SYSTEM Refer to clinic/hospital [...] Comment: As of 04 at 3:00 p.m. [facility] has changed the methodology for TSH, and with this change the reference range has changed from 0.49-4.67 to 0.35-5.5 uIU/ml. 04/18/2007 10:4 8 AM CDT Benedicto Rojo MD CHEMISTRY ORDERABLES Edited Performing Organization Address [facility] Phone Number INTERFACE SYSTEM Refer to clinic/hospital [...] MD CHEMISTRY ORDERABLES Edited Performing Organization Address [facility] Phone Number INTERFACE SYSTEM Refer to clinic/hospital department * ETHANOL (04/18/2007 10:48 AM CDT) ETHANOL <10 <=10 mg/dL INTERFACE SYSTEM ETHANOL % <0.010 <=0.010 % INTERFACE SYSTEM Comment: Beginning August 01, 2006, the Blood Alcohol from [facility] will be reported in % as well as mg/dl. 04/18/2007 10:4 8 AM CDT Benedicto Rojo MD CHEMISTRY ORDERABLES Edited Performing Organization Address [facility] Phone Number INTERFACE SYSTEM Refer [...] MD URINE ORDERABLES Edited Performing Organization Address [facility] Phone Number INTERFACE SYSTEM Refer to clinic/hospital department documented in this encounter Visit Diagnoses Diagnosis Bipolar I disorder, most recent episode (or current) mixed, severe, specified as with psychotic behavior ([facility])- Primary Bipolar I disorder, most recent episode (or current) mixed, severe, specified as with psychotic behavior documented in this encounter Additional Health Concerns Infection Onset Date Last Indicated Resolved Time VRE Comment:Urine 10/30/13 Resolved 11/04/2013 11/04/2013 8 10:33 AM FISHING TOOL OPERATOR R/O COVID-19 12/25/2019 12/25/2019 12/26/2019 2:46 PM CDT R/O COVID-19 05/09/2020 05/09/2020 05/09/2020 12:1 7 PM FISHING TOOL OPERATOR documented as of this encounter Care Teams Residential Green Building Designer Relationship Specialty Start Date End Date Dara Tavera FNP [address] [place] [address] PCP - General NURSE PRACTITIONER 10/13/18 documented as of this encounter
--- OUTSIDE RECORDS SUMMARY | 2025-05-08 18:44 | XMS_ITS | Encounter Summary ---
Author Organization [facility] Address [address] [place] [address] Care Team Providers Care Biopsychologist Name Role Phone Dara Tavera Primary Care Provider Encounter Details Date Type Department Care Team (Latest Contact Info) Description 12/24/2005 Outpatient Historical [facility] [address] [place] [address] AMBULANCE, [facility] Open Wnd Anterior Abdomen (Primary Dx) Social History Tobacco Use Types Packs/Day Years Used Date Smoking Tobacco: Never Assessed Comments Unknown Sex and Gender Information Value Date Recorded Sex Assigned at Not on file Legal Sex Female 5:22 AM IMAGING SCHEDULER Gender Identity Not on file Sexual [...] 10/30/13 Resolved 11/04/2013 11/04/2013 8 10:33 AM IMAGING SCHEDULER R/O COVID-19 12/25/2019 12/25/2019 12/26/2019 2:46 PM CDT R/O COVID-19 05/09/2020 05/09/2020 05/09/2020 12:1 7 PM IMAGING SCHEDULER documented as of this encounter Care Teams Biopsychologist Relationship Specialty Start Date End Date Dara Tavera FNP [address] [place] [phone] PCP - General NURSE PRACTITIONER 10/13/18 documented as of this encounter
--- OUTSIDE RECORDS SUMMARY | 2025-05-08 18:44 | XMS_ITS | Encounter Summary ---
Author Organization [facility] Address [address] [place] [address] Care Team Providers Care Textiles Printer Name Role Phone Dara Tavera Primary Care Provider Encounter Details Date Type Department Care Team (Latest Contact Info) Description 02/20/2007 Outpatient Historical [facility] [address] [place] [address] AMBULANCE, [facility] Unspecified Nonpsychotic Mental Disorder (Primary Dx) Social History Tobacco Use Types Packs/Day Years Used Date Smoking Tobacco: Never Assessed Comments Unknown Sex and Gender Information Value Date Recorded Sex Assigned at Not on file Legal Sex Female 5:22 AM FLOODPLAIN MANAGER Gender Identity Not on file Sexual Orientation Not on file documented as of this encounter Plan of Treatment Not on file documented as of this encounter Visit Diagnoses Diagnosis Unspecified nonpsychotic mental disorder- Primary documented in this encounter Additional Health Concerns Infection Onset Date Last Indicated Resolved Time VRE Comment:Urine 10/30/13 Resolved 11/04/2013 11/04/2013 8 10:33 AM FLOODPLAIN MANAGER R/O COVID-19 12/25/2019 12/25/2019 12/26/2019 2:46 PM CDT R/O COVID-19 05/09/2020 05/09/2020 05/09/2020 12:1 7 PM FLOODPLAIN MANAGER documented as of this encounter Care Teams Textiles Printer Relationship Specialty Start Date End Date Dara Tavera FNP [address] [place] [address] PCP - General NURSE PRACTITIONER 10/13/18 documented as of this encounter
--- OUTSIDE RECORDS SUMMARY | 2025-05-08 18:44 | XMS_ITS | Encounter Summary ---
Author Organization [facility] Address [address] [place] [address] Care Team Providers Care Staff Assistant Name Role Phone Dara Tavera Primary Care Provider Encounter Details Date Type Department Care Team (Latest Contact Info) Description 01/05/2006 Outpatient Historical [facility] Family Medicine [place] [address] [facility] [address] [place] [address] Faiza Petersen MD NO ADDRESS ON FILE Open Wnd Anterior Abdomen (Primary Dx); Abdominal Pain, Unspecified Site Social History Tobacco Use Types Packs/Day Years Used Date Smoking Tobacco: Never Assessed Comments Unknown Sex and Gender Information Value Date Recorded Sex Assigned at Not on file Legal Sex Female 5:22 AM TECHNICAL ADMINISTRATOR Gender Identity Not on file Sexual [...] 10/30/13 Resolved 11/04/2013 11/04/2013 8 10:33 AM TECHNICAL ADMINISTRATOR R/O COVID-19 12/25/2019 12/25/2019 12/26/2019 2:46 PM CDT R/O COVID-19 05/09/2020 05/09/2020 05/09/2020 12:1 7 PM TECHNICAL ADMINISTRATOR documented as of this encounter Care Teams Staff Assistant Relationship Specialty Start Date End Date Dara Tavera FNP [address] [place] [address] PCP - General NURSE PRACTITIONER 10/13/18 documented as of this encounter
--- OUTSIDE RECORDS SUMMARY | 2025-05-08 18:44 | XMS_ITS | Encounter Summary ---
Author Organization [facility] Address [address] [place] [address] Care Team Providers Care Ed Educational Aide Name Role Phone Dara Tavera AMANDEEP Primary Care Provider [phone] Encounter Details Date Type Department Care Team (Late st Contact Info) Description 04/04/2007 Emergency [facility] Emergency Department [address] [place] [address] Sammi Justice MD [address] [facility] [address] [place] [address] Unspecified Chest Pain (Primary Dx) Social History Tobacco Use Types Packs/Day Years Used Date Smoking Tobacco: Never Assessed Comments Unknown Sex and Gender Information Value Date Recorded Sex Assigned at Not on file Legal Sex Female 5:22 AM METAL FORGER'S ASSISTANT Gender Identity Not on file Sexual [...] HEMATOLOGY ORDERABLES Edite d Performing Organization Address [facility] Phone Number INTERFACE SYSTEM Refer [...] HEMATOLOGY ORDERABLES Edite d Performing Organization Address [facility] Phone Number INTERFACE SYSTEM Refer [...] Goal INR 3.0; range 2.5 - 3.5 POST-TN Goal INR 2.5; range 2.0 - 3.0 or Goal 3.0; range 2.5 - 3.5 Atrial Fibrillation Goal INR 2.5; range 2.0 - 3.0 Ischemic Stroke Goal INR 2.5; range 2.0 - 3.0 For additional information see Guidelines for Anticoagulation available from the pharmacy [facility]. 04/04/2007 1:03 AM CDT Sammi Justice MD HEMATOLOGY ORDERABLES Edite d Performing Organization Address [facility] Phone Number INTERFACE SYSTEM Refer [...] MD CHEMISTRY ORDERABLES Edited Performing Organization Address [facility] Phone Number INTERFACE SYSTEM Refer to [...] MD CHEMISTRY ORDERABLES Edited Performing Organization Address [facility] Phone Number INTERFACE SYSTEM Refer to clinic/hospital department documented in this encounter Visit Diagnoses Diagnosis Chest pain, unspecified- Primary documented in this encounter Additional Health Concerns Infection Onset Date Last Indicated Resolved Time VRE Comment:Urine 10/30/13 Resolved 11/04/2013 11/04/201307/26/201 8 10:33 AM METAL FORGER'S ASSISTANT R/O COVID-19 12/25/2019 12/25/2019 12/26/2019 2:46 PM CDT R/O COVID-19 05/09/2020 05/09/2020 05/09/2020 12:1 7 PM METAL FORGER'S ASSISTANT documented as of this encounter Care Teams Ed Educational Aide Relationship Specialty Start Date End Date Dara Tavera FNP [address] [place] [phone] PCP - General NURSE PRACTITIONER 10/13/18 documented as of this encounter
--- OUTSIDE RECORDS SUMMARY | 2025-05-08 18:44 | XMS_ITS | Encounter Summary ---
Author Organization [facility] Address [address] [place] [address] Care Team Providers Care News Videographer Name Role Phone Dara Tavera Primary Care Provider Encounter Details Date Type Department Care Team (Latest Contact Info) Description 02/22/2006 Outpatient Historical [facility] [address] [place] [address] AMBULANCE, [facility] Cervicalgia (Primary Dx) Social History Tobacco Use Types Packs/Day Years Used Date Smoking Tobacco: Never Assessed Comments Unknown Sex and Gender Information Value Date Recorded Sex Assigned at Not on file Legal Sex Female 5:22 AM BIG DATA LEAD Gender Identity Not on file Sexual Orientation Not on file documented as of this encounter Plan of Treatment Not on file documented as of this encounter Visit Diagnoses Diagnosis Cervicalgia- Primary documented in this encounter Additional Health Concerns Infection Onset Date Last Indicated Resolved Time VRE Comment:Urine 10/30/13 Resolved 11/04/2013 11/04/2013 8 10:33 AM BIG DATA LEAD R/O COVID-19 12/25/2019 12/25/2019 12/26/2019 2:46 PM CDT R/O COVID-19 05/09/2020 05/09/2020 05/09/2020 12:1 7 PM BIG DATA LEAD documented as of this encounter Care Teams News Videographer Relationship Specialty Start Date End Date Dara Tavera FNP [address] [place] [address] PCP - General NURSE PRACTITIONER 10/13/18 documented as of this encounter
--- OUTSIDE RECORDS SUMMARY | 2025-05-08 18:44 | XMS_ITS | Encounter Summary ---
Author Organization [facility] Address [address] [place] [address] Care Team Providers Care Textile Bag Sewer Name Role Phone Dara Tavera Primary Care Provider Encounter Details Date Type Department Care Team (Latest Contact Info) Description 09/19/2005 Outpatient Historical [facility] [address] [place] [address] AMBULANCE, [facility] Hemorrhage Complicating a Procedure (Primary Dx) Social History Tobacco Use Types Packs/Day Years Used Date Smoking Tobacco: Never Assessed Comments Unknown Sex and Gender Information Value Date Recorded Sex Assigned at Not on file Legal Sex Female 5:22 AM OPTIONS TRADER Gender Identity Not on file Sexual Orientation Not on file documented as of this encounter Plan of Treatment Not on file documented as of this encounter Visit Diagnoses Diagnosis Hemorrhage complicating a procedure- Primary documented in this encounter Additional Health Concerns Infection Onset Date Last Indicated Resolved Time VRE Comment:Urine 10/30/13 Resolved 11/04/2013 11/04/2013 8 10:33 AM OPTIONS TRADER R/O COVID-19 12/25/2019 12/25/2019 12/26/2019 2:46 PM CDT R/O COVID-19 05/09/2020 05/09/2020 05/09/2020 12:1 7 PM OPTIONS TRADER documented as of this encounter Care Teams Textile Bag Sewer Relationship Specialty Start Date End Date Dara Tavera FNP [address] [place] [phone] PCP - General NURSE PRACTITIONER 10/13/18 documented as of this encounter
--- OUTSIDE RECORDS SUMMARY | 2025-05-08 18:44 | XMS_ITS | Encounter Summary ---
Author Organization [facility] Address [address] [place] [address] Care Team Providers Care Vocational Counselor Name Role Phone Dara Tavera Primary Care Provider Encounter Details Date Type Department Care Team (Latest Contact Info) Description 12/28/2005 Outpatient Historical [facility] Family Medicine [place] [address] [facility] [address] [place] [address] Faiza Petersen MD NO ADDRESS ON FILE Open Wnd Anterior Abdomen (Primary Dx); Other Postsurgical Status Social History Tobacco Use Types Packs/Day Years Used Date Smoking Tobacco: Never Assessed Comments Unknown Sex and Gender Information Value Date Recorded Sex Assigned at Not on file Legal Sex Female 5:22 AM INSPECTOR ELEVATORS Gender Identity Not on file Sexual Orientation [...] 10/30/13 Resolved 11/04/2013 11/04/2013 8 10:33 AM INSPECTOR ELEVATORS R/O COVID-19 12/25/2019 12/25/2019 12/26/2019 2:46 PM CDT R/O COVID-19 05/09/2020 05/09/2020 05/09/2020 12:1 7 PM INSPECTOR ELEVATORS documented as of this encounter Care Teams Vocational Counselor Relationship Specialty Start Date End Date Dara Tavera FNP [address] [place] [phone] PCP - General NURSE PRACTITIONER 10/13/18 documented as of this encounter
--- OUTSIDE RECORDS SUMMARY | 2025-05-08 18:44 | XMS_ITS | Encounter Summary ---
Author Organization [facility] Address [address] [place] [address] Care Team Providers Care Beverage Manager Name Role Phone Dara Tavera Primary Care Provider Encounter Details Date Type Department Care Team (Latest Contact Info) Description 07/18/2005 Outpatient Historical [facility] [address] [place] [address] Faiza Petersen MD NO ADDRESS ON FILE PREOP EXAM OTHER UNSPECIFIED (Primary Dx); ESOPHAGEAL REFLUX; CHEST PAIN NEC Social History Tobacco Use Types Packs/Day Years Used Date Smoking Tobacco: Never Assessed Comments Unknown Sex and Gender Information Value Date Recorded Sex Assigned at Not on file Legal Sex Female 5:22 AM PROPELLER MECHANIC Gender Identity Not on file Sexual Orientation Not on file documented as of this encounter Plan of Treatment Not on file documented as of this encounter Visit Diagnoses Diagnosis Preoperative examination, unspecified- Primary Esophageal reflux Other chest pain documented in this encounter Additional Health Concerns Infection Onset Date Last Indicated Resolved Time VRE Comment:Urine 10/30/13 Resolved 11/04/2013 11/04/2013 8 10:33 AM PROPELLER MECHANIC R/O COVID-19 12/25/2019 12/25/2019 12/26/2019 2:46 PM CDT R/O COVID-19 05/09/2020 05/09/2020 05/09/2020 12:1 7 PM PROPELLER MECHANIC documented as of this encounter Care Teams Beverage Manager Relationship Specialty Start Date End Date Dara Tavera FNP [address] [place] [address] PCP - General NURSE PRACTITIONER 10/13/18 documented as of this encounter
--- OUTSIDE RECORDS SUMMARY | 2025-05-08 18:44 | XMS_ITS | Encounter Summary ---
Author Organization [facility] Address [address] [place] [address] Care Team Providers Care Confectionery Drops Machine Operator Name Role Phone Dara Tavera AMANDEEP Primary Care Provider Encounter Details Date Type Department Care Team (Late st Contact Info) Description 04/13/2007 Emergency [facility] Emergency Department [address] [place] [address] Flex Ricks MD NO ADDRESS ON FILE Other and Unspecified Noninfectious Gastroenteritis and Colitis (Primary Dx) Social History Tobacco Use Types Packs/Day Years Used Date Smoking Tobacco: Never Assessed Comments Unknown Sex and Gender Information Value Date Recorded Sex Assigned at Not on file Legal Sex Female 5:22 AM ARTISTIC DIRECTOR Gender Identity Not on file Sexual [...] 10/30/13 Resolved 11/04/2013 11/04/2013 8 10:33 AM ARTISTIC DIRECTOR R/O COVID-19 12/25/2019 12/25/2019 12/26/2019 2:46 PM CDT R/O COVID-19 05/09/2020 05/09/2020 05/09/2020 12:1 7 PM ARTISTIC DIRECTOR documented as of this encounter Care Teams Confectionery Drops Machine Operator Relationship Specialty Start Date End Date Dara Tavera FNP [address] [place] [address] PCP - General NURSE PRACTITIONER 10/13/18 documented as of this encounter
--- OUTSIDE RECORDS SUMMARY | 2025-05-08 18:44 | XMS_ITS | Encounter Summary ---
Author Organization [facility] Address [address] [place] [address] Care Team Providers Care Water Systems Designer Name Role Phone Dara Tavera AMANDEEP Primary Care Provider Encounter Details Date Type Department Care Team (Late st Contact Info) Description 04/04/2007 Outpatient [facility] [address] [place] [address] AMBULANCE, [facility] Unspecified Chest Pain (Primary Dx) Social History Tobacco Use Types Packs/Day Years Used Date Smoking Tobacco: Never Assessed Comments Unknown Sex and Gender Information Value Date Recorded Sex Assigned at Not on file Legal Sex Female 5:22 AM SALES SOLUTIONS ASSOCIATE Gender Identity Not on file Sexual [...] Resolved 11/04/2013 11/04/2013 8 10:33 AM SALES SOLUTIONS ASSOCIATE R/O COVID-19 12/25/2019 12/25/2019 12/26/2019 2:46 PM CDT R/O COVID-19 05/09/2020 05/09/2020 05/09/2020 12:1 7 PM SALES SOLUTIONS ASSOCIATE documented as of this encounter Care Teams Water Systems Designer Relationship Specialty Start Date End Date Dara Tavera FNP [address] [place] [phone] PCP - General NURSE PRACTITIONER 10/13/18 documented as of this encounter
--- OUTSIDE RECORDS SUMMARY | 2025-05-08 18:44 | XMS_ITS | Encounter Summary ---
Author Organization [facility] Address [address] [place] [address] Care Team Providers Care Header Boss Name Role Phone Dara Tavera Primary Care Provider Encounter Details Date Type Department Care Team (Latest Contact Info) Description 12/03/2005 Outpatient Historical [facility] [address] [place] [address] AMBULANCE, [facility] Disruption of External Operation Wound, not Elsewhere Classified (Primary Dx) Social History Tobacco Use Types Packs/Day Years Used Date Smoking Tobacco: Never Assessed Comments Unknown Sex and Gender Information Value Date Recorded Sex Assigned at Not on file Legal Sex Female 5:22 AM GARMENT FOLDER Gender Identity Not on file Sexual Orientation Not on file documented as of this encounter Plan of Treatment Not on file documented as of this encounter Visit Diagnoses Diagnosis Disruption of external operation (surgical) wound- Primary documented in this encounter Additional Health Concerns Infection Onset Date Last Indicated Resolved Time VRE Comment:Urine 10/30/13 Resolved 11/04/2013 11/04/2013 8 10:33 AM GARMENT FOLDER R/O COVID-19 12/25/2019 12/25/2019 12/26/2019 2:46 PM CDT R/O COVID-19 05/09/2020 05/09/2020 05/09/2020 12:1 7 PM GARMENT FOLDER documented as of this encounter Care Teams Header Boss Relationship Specialty Start Date End Date Dara Tavera FNP [address] [place] [phone] PCP - General NURSE PRACTITIONER 10/13/18 documented as of this encounter
--- OUTSIDE RECORDS SUMMARY | 2025-05-08 18:44 | XMS_ITS | Encounter Summary ---
Author Organization [facility] Address [address] [place] [address] Care Team Providers Care Funeral Location Manager Name Role Phone Dara Tavera AMANDEEP Primary Care Provider Encounter Details Date Type Department Care Team (Latest Contact Info) Description 12/16/2005 Outpatient Historical [facility] Family Medicine- [address] [place] [address] Ryan Don NP NO ADDRESS ON FILE Abdominal Pain, Unspecified Site (Primary Dx); Other Specified Disease of White Blood Cells; Cellulitis and Abscess of Unspecified Site; Nausea with Vomiting Social History Tobacco Use Types Packs/Day Years Used Date Smoking Tobacco: Never Assessed Comments Unknown Sex and Gender Information Value Date Recorded Sex Assigned at Not on file Legal Sex Female 5:22 AM DROSS PULLER Gender Identity Not on file Sexual [...] 10/30/13 Resolved 11/04/2013 11/04/2013 8 10:33 AM DROSS PULLER R/O COVID-19 12/25/2019 12/25/2019 12/26/2019 2:46 PM CDT R/O COVID-19 05/09/2020 05/09/2020 05/09/2020 12:1 7 PM DROSS PULLER documented as of this encounter Care Teams Funeral Location Manager Relationship Specialty Start Date End Date Dara Tavera FNP [address] [place] [address] PCP - General NURSE PRACTITIONER 10/13/18 documented as of this encounter
--- OUTSIDE RECORDS SUMMARY | 2025-05-08 18:44 | XMS_ITS | Encounter Summary ---
Author Organization [facility] Address [address] [place] [address] Care Team Providers Care Bulk Receiver Name Role Phone Dara Tavera Primary Care Provider Encounter Details Date Type Department Care Team (Latest Contact Info) Description 08/21/2005 Outpatient Historical [facility] [address] [place] [address] AMBULANCE, [facility] DISRUPT OF EXTERNAL OPERATION WOUND (Primary Dx) Social History Tobacco Use Types Packs/Day Years Used Date Smoking Tobacco: Never Assessed Comments Unknown Sex and Gender Information Value Date Recorded Sex Assigned at Not on file Legal Sex Female 5:22 AM CHROMOSOMAL DISORDERS COUNSELOR Gender Identity Not on file Sexual Orientation Not on file documented as of this encounter Plan of Treatment Not on file documented as of this encounter Visit Diagnoses Diagnosis Disruption of external operation (surgical) wound- Primary documented in this encounter Additional Health Concerns Infection Onset Date Last Indicated Resolved Time 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
--- OUTSIDE RECORDS SUMMARY | 2025-05-08 18:44 | XMS_ITS | Encounter Summary ---
Author Organization [facility] Address [address] [place] [address] Care Team Providers Care Microbiology Teacher Name Role Phone Dara Tavera Primary Care Provider Encounter Details Date Type Department Care Team (Latest Contact Info) Description 08/31/2005 Outpatient Historical [facility]ulance [address] [place] [address] AMBULANCE, [facility] Other Injury of Abdomen (Primary Dx) Social History Tobacco Use Types Packs/Day Years Used Date Smoking Tobacco: Never Assessed Comments Unknown Sex and Gender Information Value Date Recorded Sex Assigned at Not on file Legal Sex Female 5:22 AM WELDER Gender Identity Not on file Sexual Orientation Not on file documented as of this encounter Plan of Treatment Not on file documented as of this encounter Visit Diagnoses Diagnosis Other injury of abdomen- Primary documented in this encounter Additional Health Concerns Infection Onset Date Last Indicated Resolved Time VRE Comment:Urine 10/30/13 Resolved 11/04/2013 11/04/2013 8 10:33 AM WELDER R/O COVID-19 12/25/2019 12/25/2019 12/26/2019 2:46 PM CDT R/O COVID-19 05/09/2020 05/09/2020 05/09/2020 12:1 7 PM WELDER documented as of this encounter Care Teams Microbiology Teacher Relationship Specialty Start Date End Date Dara Tavera FNP [address] [place] [phone] PCP - General NURSE PRACTITIONER 10/13/18 documented as of this encounter
--- OUTSIDE RECORDS SUMMARY | 2025-05-08 18:44 | XMS_ITS | Clinical Summary ---
Author Organization [facility] Address [address] [address] Care Team Providers Care Woodyard Operator Name Role Phone Dara Tavera WOOL SHEARING SUPERVISOR Primary Care Provider [phone] Allergies Active Allergy Reactions Criticality Noted Date Comments Adhesive Rash Low 02/12/2009 Codeine Nausea and Vomiting Low 02/12/2009 Duloxetine Other (See Comments) 02/24/2015 Fentanyl Hives High 11/07/2019 Fluoxetine Unknown 10/20/2018 Gabapentin Unknown,Hallucination Low 02/12/2009 Influenza Virus Vaccine Qv [id number] (36 Mos+) Other (See Comments) 06/19/2014 pneumonia Ketorolac Tromethamine Other (See Comments) Low Adverse drug reaction [place] Unknown 02/12/2009 Other reaction(s): shakey Penicillins Rash [...] 9 Active fluticasone propionate (FLONASE) 50 mcg/spray [place], Suspension nasal inhaler Administer 2 Sprays in [...] 07/07/2009 0 10/26/2012 Personal history of MRSA (ak thicillin [...] asked 05/05/2019 How often do you attend confucianism or jewish serv ices? Not asked 05/05/2019 Do you belong to any clubs o r organizations such as confucianism groups, unions, fraternal or athletic groups, or [...] on file Legal Sex Female 5:22 AM NOODLE CATALYST MAKER Gender Identity Not on file Sexual [...] Advance Directives For more information, please contact: [phone] Documents on File Type Date Recorded Patient Used Car Lot Porter Expl anation Advance Directive Living Will 03/11/2015 [...] 6:26 AM 06/22/2018 8:41 PM Care Teams Woodyard Operator Relationship Specialty Start Date End Date Dara Tavera FNP [address] [place] [address] PCP - General NURSE PRACTITIONER 10/13/18
--- OUTSIDE RECORDS SUMMARY | 2025-05-08 18:44 | XMS_ITS | Encounter Summary ---
Author Organization [facility] Address [address] [place] [address] Care Team Providers Care Electrical Repairer Name Role Phone Dara Tavera Primary Care Provider Encounter Details Date Type Department Care Team (Latest Contact Info) Description 02/26/2007 Outpatient Historical [facility] [address] [place] [address] AMBULANCE, [facility] Abdominal Pain, Unspecified Site (Primary Dx) Social History Tobacco Use Types Packs/Day Years Used Date Smoking Tobacco: Never Assessed Comments Unknown Sex and Gender Information Value Date Recorded Sex Assigned at Not on file Legal Sex Female 5:22 AM DIRECTOR OF PROCUREMENT Gender Identity Not on file Sexual Orientation Not on file documented as of this encounter Plan of Treatment Not on file documented as of this encounter Visit Diagnoses Diagnosis Abdominal pain, unspecified site- Primary documented in this encounter Additional Health Concerns Infection Onset Date Last Indicated Resolved Time VRE Comment:Urine 10/30/13 Resolved 11/04/2013 11/04/2013 8 10:33 AM DIRECTOR OF PROCUREMENT R/O COVID-19 12/25/2019 12/25/2019 12/26/2019 2:46 PM CDT R/O COVID-19 05/09/2020 05/09/2020 05/09/2020 12:1 7 PM DIRECTOR OF PROCUREMENT documented as of this encounter Care Teams Electrical Repairer Relationship Specialty Start Date End Date Dara Tavera FNP [address] [place] [address] PCP - General NURSE PRACTITIONER 10/13/18 documented as of this encounter
--- OUTSIDE RECORDS SUMMARY | 2025-05-08 18:44 | XMS_ITS | Encounter Summary ---
Author Organization [facility] Address [address] [place] [address] Care Team Providers Care Metal Template Maker Name Role Phone Dara Tavera Primary Care Provider Encounter Details Date Type Department Care Team (Latest Contact Info) Description 12/16/2005 Outpatient Historical [facility] [address] [place] [address] AMBULANCE, [facility] Unspecified Nonpsychotic Mental Disorder (Primary Dx) Social History Tobacco Use Types Packs/Day Years Used Date Smoking Tobacco: Never Assessed Comments Unknown Sex and Gender Information Value Date Recorded Sex Assigned at Not on file Legal Sex Female 5:22 AM PRACTICE ARCHITECT Gender Identity Not on file Sexual Orientation Not on file documented as of this encounter Plan of Treatment Not on file documented as of this encounter Visit Diagnoses Diagnosis Unspecified nonpsychotic mental disorder- Primary documented in this encounter Additional Health Concerns Infection Onset Date Last Indicated Resolved Time VRE Comment:Urine 10/30/13 Resolved 11/04/2013 11/04/2013 8 10:33 AM PRACTICE ARCHITECT R/O COVID-19 12/25/2019 12/25/2019 12/26/2019 2:46 PM CDT R/O COVID-19 05/09/2020 05/09/2020 05/09/2020 12:1 7 PM PRACTICE ARCHITECT documented as of this encounter Care Teams Metal Template Maker Relationship Specialty Start Date End Date Dara Tavera FNP [address] [place] [address] PCP - General NURSE PRACTITIONER 10/13/18 documented as of this encounter
--- OUTSIDE RECORDS SUMMARY | 2025-05-08 18:44 | XMS_ITS | Encounter Summary ---
Author Organization [facility] Address [address] [place] [address] Care Team Providers Care Classified Advertising Supervisor Name Role Phone Dara Tavera Primary Care Provider Encounter Details Date Type Department Care Team (Latest Contact Info) Description 02/07/2006 Outpatient Historical [facility] Medicine [address] [facility] [address] [place] [address] Ryan Don NP NO ADDRESS ON FILE Polydipsia (Primary Dx); Nausea Alone; Open Wnd Anterior Abdomen Social History Tobacco Use Types Packs/Day Years Used Date Smoking Tobacco: Never Assessed Comments Unknown Sex and Gender Information Value Date Recorded Sex Assigned at Not on file Legal Sex Female 5:22 AM WIRE COATER Gender Identity Not on file Sexual [...] 10/30/13 Resolved 11/04/2013 11/04/2013 8 10:33 AM WIRE COATER R/O COVID-19 12/25/2019 12/25/2019 12/26/2019 2:46 PM CDT R/O COVID-19 05/09/2020 05/09/2020 05/09/2020 12:1 7 PM WIRE COATER documented as of this encounter Care Teams Classified Advertising Supervisor Relationship Specialty Start Date End Date Dara Tavera FNP [address] [place] [address] PCP - General NURSE PRACTITIONER 10/13/18 documented as of this encounter
--- OUTSIDE RECORDS SUMMARY | 2025-05-08 18:44 | XMS_ITS | Encounter Summary ---
Author Organization [facility] Address [address] [place] [address] Care Team Providers Care Securities Teller Name Role Phone Dara Tavera Primary Care Provider Encounter Details Date Type Department Care Team (Latest Contact Info) Description 01/31/2006 Outpatient Historical [facility] [address] [place] [address] AMBULANCE, [facility] Unspecified Nonpsychotic Mental Disorder (Primary Dx) Social History Tobacco Use Types Packs/Day Years Used Date Smoking Tobacco: Never Assessed Comments Unknown Sex and Gender Information Value Date Recorded Sex Assigned at Not on file Legal Sex Female 5:22 AM TAPE TRANSFERRER Gender Identity Not on file Sexual Orientation Not on file documented as of this encounter Plan of Treatment Not on file documented as of this encounter Visit Diagnoses Diagnosis Unspecified nonpsychotic mental disorder- Primary documented in this encounter Additional Health Concerns Infection Onset Date Last Indicated Resolved Time VRE Comment:Urine 10/30/13 Resolved 11/04/2013 11/04/2013 8 10:33 AM TAPE TRANSFERRER R/O COVID-19 12/25/2019 12/25/2019 12/26/2019 2:46 PM CDT R/O COVID-19 05/09/2020 05/09/2020 05/09/2020 12:1 7 PM TAPE TRANSFERRER documented as of this encounter Care Teams Securities Teller Relationship Specialty Start Date End Date Dara Tavera FNP [address] [place] [address] PCP - General NURSE PRACTITIONER 10/13/18 documented as of this encounter
--- OUTSIDE RECORDS SUMMARY | 2025-05-08 18:44 | XMS_ITS | Encounter Summary ---
Author Organization [facility] Address [address] [place] [address] Care Team Providers Care Livery Car Driver Name Role Phone Dara Tavera Primary Care Provider Encounter Details Date Type Department Care Team (Latest Contact Info) Description 03/05/2006 Outpatient Historical [facility] [address] [place] [address] AMBULANCE, [facility] Other Malaise and Fatigue (Primary Dx) Social History Tobacco Use Types Packs/Day Years Used Date Smoking Tobacco: Never Assessed Comments Unknown Sex and Gender Information Value Date Recorded Sex Assigned at Not on file Legal Sex Female 5:22 AM WOOL MIXER Gender Identity Not on file Sexual Orientation Not on file documented as of this encounter Plan of Treatment Not on file documented as of this encounter Visit Diagnoses Diagnosis Other malaise and fatigue- Primary documented in this encounter Additional Health Concerns Infection Onset Date Last Indicated Resolved Time VRE Comment:Urine 10/30/13 Resolved 11/04/2013 11/04/2013 8 10:33 AM WOOL MIXER R/O COVID-19 12/25/2019 12/25/2019 12/26/2019 2:46 PM CDT R/O COVID-19 05/09/2020 05/09/2020 05/09/2020 12:1 7 PM WOOL MIXER documented as of this encounter Care Teams Livery Car Driver Relationship Specialty Start Date End Date Dara Tavera FNP [address] [place] [address] PCP - General NURSE PRACTITIONER 10/13/18 documented as of this encounter
--- OUTSIDE RECORDS SUMMARY | 2025-05-08 18:44 | XMS_ITS | Encounter Summary ---
Author Organization [facility] Address [address] [place] [address] Care Team Providers Care Last Dipper Name Role Phone Dara Tavera Primary Care Provider [phone] Encounter Details Date Type Department Care Team (Latest Contact Info) Description 04/08/2006 Outpatient Historical [facility] [address] [place] [address] AMBULANCE, [facility] Unspecified Epilepsy without Mention of Intractable Epilepsy (CMS/HCC) (Primary Dx) Social History Tobacco Use Types Packs/Day Years Used Date Smoking Tobacco: Never Assessed Comments Unknown Sex and Gender Information Value Date Recorded Sex Assigned at Not on file Legal Sex Female 5:22 AM BACK END ARCHITECT Gender Identity Not on file Sexual [...] 10/30/13 Resolved 11/04/2013 11/04/2013 8 10:33 AM BACK END ARCHITECT R/O COVID-19 12/25/2019 12/25/2019 12/26/2019 2:46 PM CDT R/O COVID-19 05/09/2020 05/09/2020 05/09/2020 12:1 7 PM BACK END ARCHITECT documented as of this encounter Care Teams Last Dipper Relationship Specialty Start Date End Date Dara Tavera FNP [address] [place] [address] PCP - General NURSE PRACTITIONER 10/13/18 documented as of this encounter
--- OUTSIDE RECORDS SUMMARY | 2025-05-08 18:44 | XMS_ITS | Encounter Summary ---
Author Organization [facility] Address [address] [place] [address] Care Team Providers Care Printed Circuit Boards Beveler Name Role Phone Dara Tavera Primary Care Provider Encounter Details Date Type Department Care Team (Latest Contact Info) Description 10/09/2005 Outpatient Historical [facility] [address] [place] [address] AMBULANCE, [facility] Unspecified Nonpsychotic Mental Disorder (Primary Dx) Social History Tobacco Use Types Packs/Day Years Used Date Smoking Tobacco: Never Assessed Comments Unknown Sex and Gender Information Value Date Recorded Sex Assigned at Not on file Legal Sex Female 5:22 AM EMERGENCY DEPARTMENT CLINICIAN Gender Identity Not on file Sexual Orientation Not on file documented as of this encounter Plan of Treatment Not on file documented as of this encounter Visit Diagnoses Diagnosis Unspecified nonpsychotic mental disorder- Primary documented in this encounter Additional Health Concerns Infection Onset Date Last Indicated Resolved Time VRE Comment:Urine 10/30/13 Resolved 11/04/2013 11/04/2013 8 10:33 AM EMERGENCY DEPARTMENT CLINICIAN R/O COVID-19 12/25/2019 12/25/2019 12/26/2019 2:46 PM CDT R/O COVID-19 05/09/2020 05/09/2020 05/09/2020 12:1 7 PM EMERGENCY DEPARTMENT CLINICIAN documented as of this encounter Care Teams Printed Circuit Boards Beveler Relationship Specialty Start Date End Date Dara Tavera FNP [address] [place] [address] PCP - General NURSE PRACTITIONER 10/13/18 documented as of this encounter
--- OUTSIDE RECORDS SUMMARY | 2025-05-08 18:44 | XMS_ITS | Encounter Summary ---
Author Organization [facility] Address [address] [place] [address] Care Team Providers Care Management Retail Intern Name Role Phone Dara Tavera Primary Care Provider Encounter Details Date Type Department Care Team (Late st Contact Info) Description 04/03/2007 Outpatient [facility] [address] [place] [address] AMBULANCE, [facility] Other Chest Pain (Primary Dx) Social History Tobacco Use Types Packs/Day Years Used Date Smoking Tobacco: Never Assessed Comments Unknown Sex and Gender Information Value Date Recorded Sex Assigned at Not on file Legal Sex Female 5:22 AM KEG INSPECTOR Gender Identity Not on file Sexual Orientation Not on file documented as of this encounter Plan of Treatment Not on file documented as of this encounter Visit Diagnoses Diagnosis Other chest pain- Primary documented in this encounter Additional Health Concerns Infection Onset Date Last Indicated Resolved Time VRE Comment:Urine 10/30/13 Resolved 11/04/2013 11/04/2013 8 10:33 AM KEG INSPECTOR R/O COVID-19 12/25/2019 12/25/2019 12/26/2019 2:46 PM CDT R/O COVID-19 05/09/2020 05/09/2020 05/09/2020 12:1 7 PM KEG INSPECTOR documented as of this encounter Care Teams Management Retail Intern Relationship Specialty Start Date End Date Dara Tavera FNP [address] [place] [address] PCP - General NURSE PRACTITIONER 10/13/18 documented as of this encounter
--- OUTSIDE RECORDS SUMMARY | 2025-05-08 18:44 | XMS_ITS | Encounter Summary ---
Author Organization [facility] Address [address] [place] [address] Care Team Providers Care Community Outreach Specialist Name Role Phone Dara Tavera Primary Care Provider Encounter Details Date Type Department Care Team (Latest Contact Info) Description 02/07/2007 Outpatient Historical [facility] [address] [place] [address] AMBULANCE, [facility] Unspecified Nonpsychotic Mental Disorder (Primary Dx) Social History Tobacco Use Types Packs/Day Years Used Date Smoking Tobacco: Never Assessed Comments Unknown Sex and Gender Information Value Date Recorded Sex Assigned at Not on file Legal Sex Female 5:22 AM CLINICAL BIOSTATISTICS DIRECTOR Gender Identity Not on file Sexual Orientation Not on file documented as of this encounter Plan of Treatment Not on file documented as of this encounter Visit Diagnoses Diagnosis Unspecified nonpsychotic mental disorder- Primary documented in this encounter Additional Health Concerns Infection Onset Date Last Indicated Resolved Time VRE Comment:Urine 10/30/13 Resolved 11/04/2013 11/04/2013 8 10:33 AM CLINICAL BIOSTATISTICS DIRECTOR R/O COVID-19 12/25/2019 12/25/2019 12/26/2019 2:46 PM CDT R/O COVID-19 05/09/2020 05/09/2020 05/09/2020 12:1 7 PM CLINICAL BIOSTATISTICS DIRECTOR documented as of this encounter Care Teams Community Outreach Specialist Relationship Specialty Start Date End Date Dara Tavera FNP [address] [place] [phone] PCP - General NURSE PRACTITIONER 10/13/18 documented as of this encounter
--- OUTSIDE RECORDS SUMMARY | 2025-05-08 18:44 | XMS_ITS | Encounter Summary ---
[facility] Organization [facility] Address [address] [place] [address] Care Team Providers Care Paleontological Helper Name Role Phone Dara Tavrea MOTOR COACH TOUR OPERATOR Primary Care Provider Encounter Details Date Type Department Care Team (Late st Contact Info) Description 06/17/2007 Outpatient Historical HIS IN BED Sammi Justice MD [address] [place] [address] Murphy Espitia MD NO ADDRESS [...] on file Legal Sex Female 5:22 AM FAMILY PRACTICE PHYSICIAN Gender Identity Not on file Sexual Orientation Not on file documented as of this encounter Plan of Treatment Not on file documented as of this encounter Procedures Procedure Name Priority Date/Time Associated Diagnosis Comments CBC WITH DIFFERENTIAL Routine 06/20/2007 4:40 AM FAMILY PRACTICE PHYSICIAN BASIC METABOLIC PANEL Routine 06/20/2007 4:40 AM FAMILY PRACTICE PHYSICIAN URINALYSIS W/REFLEX MICROSCOPIC Routine 06/19/2007 5:59 AM FAMILY PRACTICE PHYSICIAN CARDIAC ENZYMES Routine 06/18/2007 7:40 AM FAMILY PRACTICE PHYSICIAN CARDIAC ENZYMES Routine 06/18/2007 1:45 AM FAMILY PRACTICE PHYSICIAN CBC WITH DIFFERENTIAL Routine 06/18/2007 1:45 AM FAMILY PRACTICE PHYSICIAN TSH Routine 06/18/2007 1:45 AM FAMILY PRACTICE PHYSICIAN COMPREHENSIVE METABOLIC PANEL Routine 06/18/2007 1:45 AM FAMILY PRACTICE PHYSICIAN PT AND APTT Routine 06/17/2007 7:50 PM FAMILY PRACTICE PHYSICIAN CARDIAC ENZYMES Routine 06/17/2007 7:50 PM FAMILY PRACTICE PHYSICIAN CBC WITH DIFFERENTIAL Routine 06/17/2007 7:50 PM FAMILY PRACTICE PHYSICIAN BRAIN NATRIURETIC PEPTIDE, BNP OR PROBNP Routine 06/17/2007 7:50 PM FAMILY PRACTICE PHYSICIAN BASIC METABOLIC PANEL Routine 06/17/2007 7:50 PM FAMILY PRACTICE PHYSICIAN POC BLOOD GAS, LYTES AND H+H Routine 06/17/2007 6:48 PM FAMILY PRACTICE PHYSICIAN documented in this encounter Results * BASIC METABOLIC PANEL (06/20/2007 4:40 AM FAMILY PRACTICE PHYSICIAN) GLUCOSE 99 70 - 110 mg/dL INTERFACE [...] 295 mOsm/Kg INTERFACE SYSTEM 06/20/2007 4:40 AM FAMILY PRACTICE PHYSICIAN us Murphy Espitia MD CHEMISTRY ORDERABLES Edited INTERFACE SYSTEM Refer to clinic/hospital department * (ABNORMAL) CBC WITH DIFFERENTIAL (06/20/2007 4:40 AM FAMILY PRACTICE PHYSICIAN) WBC 10.6 4.5 - 11.0 K/ul INTERFACE [...] 0.2 K/ul INTERFACE SYSTEM 06/20/2007 4:40 AM FAMILY PRACTICE PHYSICIAN us Murphy Espitia MD HEMATOLOGY ORDERABLES Edited INTERFACE SYSTEM Refer to clinic/hospital department * URINALYSIS (06/19/2007 5:59 AM FAMILY PRACTICE PHYSICIAN) COLOR UA Yellow Straw INTERFACE SYSTEM CLARITY [...] No No INTERFACE SYSTEM 06/19/2007 5:59 AM FAMILY PRACTICE PHYSICIAN Murphy Espitia MD URINE ORDERABLES Edited Performing Organization Address [facility] Phone Number INTERFACE SYSTEM Refer to clinic/hospital department * CARDIAC ENZYMES (06/18/2007 7:40 AM FAMILY PRACTICE PHYSICIAN) TROPONIN I <0.1 0.0 - 1.3 ng/mL INTERFACE SYSTEM CKMB 1.9 0.0 - 5.0 ng/mL INTERFACE SYSTEM 06/18/2007 7:40 AM FAMILY PRACTICE PHYSICIAN Sammi Justice MD CHEMISTRY ORDERABLES Edited Performing Organization Address [facility] Phone Number INTERFACE SYSTEM Refer to clinic/hospital department * TSH (06/18/2007 1:45 AM FAMILY PRACTICE PHYSICIAN) TSH 0.530 0.350 - 5.500 uIU/ml INTERFACE SYSTEM 06/18/2007 1:45 AM FAMILY PRACTICE PHYSICIAN Murphy Espitia MD CHEMISTRY ORDERABLES Edited Performing Organization Address [facility] Phone Number INTERFACE SYSTEM Refer to clinic/hospital department * (ABNORMAL) COMPREHENSIVE METABOLIC PANEL (06/18/2007 1:45 AM FAMILY PRACTICE PHYSICIAN) GLUCOSE 227(H) 70 - 110 mg/dL INTERFACE [...] 295 mOsm/Kg INTERFACE SYSTEM 06/18/2007 1:45 AM FAMILY PRACTICE PHYSICIAN us Murphy Espitia MD CHEMISTRY ORDERABLES Edited INTERFACE SYSTEM Refer to clinic/hospital department * (ABNORMAL) CBC WITH DIFFERENTIAL (06/18/2007 1:45 AM FAMILY PRACTICE PHYSICIAN) WBC 22.9(H) 4.5 - 11.0 K/ul INTERFACE [...] 0.2 K/ul INTERFACE SYSTEM 06/18/2007 1:45 AM FAMILY PRACTICE PHYSICIAN Murphy Espitia MD HEMATOLOGY ORDERABLES Edited Performing Organization Address [facility] Phone Number INTERFACE SYSTEM Refer to clinic/hospital department * CARDIAC ENZYMES (06/18/2007 1:45 AM FAMILY PRACTICE PHYSICIAN) TROPONIN I <0.1 0.0 - 1.3 ng/mL INTERFACE SYSTEM CKMB 1.7 0.0 - 5.0 ng/mL INTERFACE SYSTEM 06/18/2007 1:45 AM FAMILY PRACTICE PHYSICIAN Sammi Justice MD CHEMISTRY ORDERABLES Edited Performing Organization Address [facility] Phone Number INTERFACE SYSTEM Refer to clinic/hospital department * (ABNORMAL) BRAIN NATRIURETIC PEPTIDE, BNP OR PROBNP (06/17/2007 7:50 PM FAMILY PRACTICE PHYSICIAN) BRAIN NATRIURETIC PEPTIDE 211(H) 0 - 125 pg/mL INTERFACE SYSTEM 06/17/2007 7:50 PM FAMILY PRACTICE PHYSICIAN Sammi Justice MD CHEMISTRY ORDERABLES Edited Performing Organization Address [facility] Phone Number INTERFACE SYSTEM Refer to clinic/hospital department * PT AND APTT (06/17/2007 7:50 PM FAMILY PRACTICE PHYSICIAN) PROTIME 14.4 12.8 - 15.8 Secs INTERFACE SYSTEM INR 1.0 INTERFACE SYSTEM PTT 34.9 21.6 - 35.6 Secs INTERFACE SYSTEM 06/17/2007 7:50 PM FAMILY PRACTICE PHYSICIAN us Sammi Justice MD HEMATOLOGY ORDERABLES Edite d Performing Organization Address [facility] Phone Number INTERFACE SYSTEM Refer to clinic/hospital department * CARDIAC ENZYMES (06/17/2007 7:50 PM FAMILY PRACTICE PHYSICIAN) TROPONIN I <0.1 0.0 - 1.3 ng/mL INTERFACE SYSTEM CKMB 2.7 0.0 - 5.0 ng/mL INTERFACE SYSTEM 06/17/2007 7:50 PM FAMILY PRACTICE PHYSICIAN Sammi Justice MD CHEMISTRY ORDERABLES Edited Performing Organization Address [facility] Phone Number INTERFACE SYSTEM Refer to clinic/hospital department * (ABNORMAL) BASIC METABOLIC PANEL (06/17/2007 7:50 PM FAMILY PRACTICE PHYSICIAN) GLUCOSE 143(H) 70 - 110 mg/dL INTERFACE [...] 295 mOsm/Kg INTERFACE SYSTEM 06/17/2007 7:50 PM FAMILY PRACTICE PHYSICIAN Sammi Justice MD CHEMISTRY ORDERABLES Edited Performing Organization Address [facility] Phone Number INTERFACE SYSTEM Refer to clinic/hospital department * (ABNORMAL) CBC WITH DIFFERENTIAL (06/17/2007 7:50 PM FAMILY PRACTICE PHYSICIAN) WBC 20.9(H) 4.5 - 11.0 K/ul INTERFACE [...] 0.2 K/ul INTERFACE SYSTEM 06/17/2007 7:50 PM FAMILY PRACTICE PHYSICIAN us Sammi Justice MD HEMATOLOGY ORDERABLES Edite d INTERFACE SYSTEM Refer to clinic/hospital department * (ABNORMAL) POC ISTAT EG 7+ (06/17/2007 6:48 PM FAMILY PRACTICE PHYSICIAN) SPECIMEN TYPE Arterial INTERF SHANTE SYSTEM Comment: Test Performed By [id number] Pulse OX: 96 Hemoglobin calculated from Hematocrit [...] 1.32 mmol/l INTERFACE SYSTEM 06/17/2007 6:48 PM FAMILY PRACTICE PHYSICIAN Murphy Espitia MD POINT OF CARE TESTING COM Edite d INTERFACE SYSTEM Refer to clinic/hospital department documented in this encounter Visit Diagnoses Diagnosis Unspecified asthma, with exacerbation Bipolar I disorder, most recent episode (or current) depressed, unspecified (CMS/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
--- OUTSIDE RECORDS SUMMARY | 2025-05-08 18:44 | XMS_ITS | Encounter Summary ---
Author Organization [facility] Address [address] [place] [address] Care Team Providers Care Manager Integrated Name Role Phone Dara Tavera Primary Care Provider Encounter Details Date Type Department Care Team (Latest Contact Info) Description 09/19/2005 Outpatient Historical [facility] [address] [place] [address] AMBULANCE, [facility] Unspecified Hemorrhage (Primary Dx) Social History Tobacco Use Types Packs/Day Years Used Date Smoking Tobacco: Never Assessed Comments Unknown Sex and Gender Information Value Date Recorded Sex Assigned at Not on file Legal Sex Female 5:22 AM FIELD SERVICE TECH Gender Identity Not on file Sexual Orientation Not on file documented as of this encounter Plan of Treatment Not on file documented as of this encounter Visit Diagnoses Diagnosis Hemorrhage, unspecified- Primary documented in this encounter Additional Health Concerns Infection Onset Date Last Indicated Resolved Time VRE Comment:Urine 10/30/13 Resolved 11/04/2013 11/04/2013 8 10:33 AM FIELD SERVICE TECH R/O COVID-19 12/25/2019 12/25/2019 12/26/2019 2:46 PM CDT R/O COVID-19 05/09/2020 05/09/2020 05/09/2020 12:1 7 PM FIELD SERVICE TECH documented as of this encounter Care Teams Manager Integrated Relationship Specialty Start Date End Date Dara Tavera FNP [address] [place] [phone] PCP - General NURSE PRACTITIONER 10/13/18 documented as of this encounter
--- OUTSIDE RECORDS SUMMARY | 2025-05-08 18:44 | XMS_ITS | Encounter Summary ---
Author Organization [facility] Address [address] [place] [address] Care Team Providers Care Drawer Waxer Name Role Phone Dara Tavera Primary Care Provider Encounter Details Date Type Department Care Team (Latest Contact Info) Description 04/13/2006 Outpatient Historical [facility] [address] [place] [address] AMBULANCE, [facility] Nausea with Vomiting (Primary Dx) Social History Tobacco Use Types Packs/Day Years Used Date Smoking Tobacco: Never Assessed Comments Unknown Sex and Gender Information Value Date Recorded Sex Assigned at Not on file Legal Sex Female 5:22 AM VISUAL DISPLAY ASSOCIATE Gender Identity Not on file Sexual Orientation Not on file documented as of this encounter Plan of Treatment Not on file documented as of this encounter Visit Diagnoses Diagnosis Nausea with vomiting- Primary documented in this encounter Additional Health Concerns Infection Onset Date Last Indicated Resolved Time VRE Comment:Urine 10/30/13 Resolved 11/04/2013 11/04/2013 8 10:33 AM VISUAL DISPLAY ASSOCIATE R/O COVID-19 12/25/2019 12/25/2019 12/26/2019 2:46 PM CDT R/O COVID-19 05/09/2020 05/09/2020 05/09/2020 12:1 7 PM VISUAL DISPLAY ASSOCIATE documented as of this encounter Care Teams Drawer Waxer Relationship Specialty Start Date End Date Dara Tavera FNP [address] [place] [phone] PCP - General NURSE PRACTITIONER 10/13/18 documented as of this encounter
--- OUTSIDE RECORDS SUMMARY | 2025-05-08 18:44 | XMS_ITS | Encounter Summary ---
Author Organization [facility] Address [address] [place] [address] Care Team Providers Care Channel Marketing Manager Name Role Phone Dara Tavera SCHOOL ATTENDANCE SECRETARY Primary Care Provider Encounter Details Date Type Department Care Team (Late st Contact Info) Description 02/13/2007 Outpatient Historical [facility] Alisa Ross MD [address] [place] [id number] Social History Tobacco Use Types Packs/Day Years Used Date Smoking Tobacco: Never Assessed Comments Unknown Sex and Gender Information Value Date Recorded Sex Assigned at Not on file Legal Sex Female 5:22 AM BULB FARMWORKER Gender Identity Not on file Sexual [...] 10/30/13 Resolved 11/04/2013 11/04/2013 8 10:33 AM BULB FARMWORKER R/O COVID-19 12/25/2019 12/25/2019 12/26/2019 2:46 PM CDT R/O COVID-19 05/09/2020 05/09/2020 05/09/2020 12:1 7 PM BULB FARMWORKER documented as of this encounter Care Teams Channel Marketing Manager Relationship Specialty Start Date End Date Dara Tavera FNP [address] [place] [phone] PCP - General NURSE PRACTITIONER 10/13/18 documented as of this encounter
--- OUTSIDE RECORDS SUMMARY | 2025-05-08 18:44 | XMS_ITS | Encounter Summary ---
Author Organization [facility] Address [address] [place] [address] Care Team Providers Care Matrix Bath Operator Name Role Phone Dara Tavera Primary Care Provider Encounter Details Date Type Department Care Team (Latest Contact Info) Description 11/17/2005 Outpatient Historical [facility] [address] [place] [address] AMBULANCE, [facility] Non-Healing Surgical Wound (Primary Dx) Social History Tobacco Use Types Packs/Day Years Used Date Smoking Tobacco: Never Assessed Comments Unknown Sex and Gender Information Value Date Recorded Sex Assigned at Not on file Legal Sex Female 5:22 AM COMMERCIAL ACCOUNT MANAGER Gender Identity Not on file Sexual Orientation Not on file documented as of this encounter Plan of Treatment Not on file documented as of this encounter Visit Diagnoses Diagnosis Non-healing surgical wound- Primary documented in this encounter Additional Health Concerns Infection Onset Date Last Indicated Resolved Time VRE Comment:Urine 10/30/13 Resolved 11/04/2013 11/04/2013 8 10:33 AM COMMERCIAL ACCOUNT MANAGER R/O COVID-19 12/25/2019 12/25/2019 12/26/2019 2:46 PM CDT R/O COVID-19 05/09/2020 05/09/2020 05/09/2020 12:1 7 PM COMMERCIAL ACCOUNT MANAGER documented as of this encounter Care Teams Matrix Bath Operator Relationship Specialty Start Date End Date Dara Tavera FNP [address] [place] [phone] PCP - General NURSE PRACTITIONER 10/13/18 documented as of this encounter
[2025-05-08] MEDS: morphine 4 mg/mL SDV 1 mL IM (18:45)
[2025-05-08] MEDS: ondansetron 2 mg/ML SDV 2 mL 4 MG IM (18:45)
--- OUTSIDE RECORDS SUMMARY | 2025-05-08 18:45 | XMS_ITS | Encounter Summary ---
Author Organization [employer] [facility] Address [address] [place] [address] Care Team Providers Care Information Services Tech Name Role Phone Dara Tavera WINDOWS SYSTEMS ARCHITECT Primary Care Provider Encounter Details Date Type Department Care Team (Late st Contact Info) Description 10/24/2011 Ancillary Orders [employer] [place] [address] [place] [address] Raleigh Najera MD NO ADDRESS [...] on file Legal Sex Female 5:22 AM LEGGER PRESS OPERATOR Gender Identity Not on file [...] acute changes seen jaw - transcribed in [employer] 10/26/2011 11:18 AM CDT ATTENTION: This replaces accession number [id number]. DESCRIPTION: AP view of the pelvis 4May 2011 shows several VersaTac spiral staple postoperative artifacts in the left inguinal region. Pelvic soft tissues appear unremarkable. The bones of the pelvis appear intact. Procedure Note Andre Vega MD - 10/26/2011 ATTENTION: This replaces accession number [id number]. DESCRIPTION: AP view of the pelvis 4May 2011 shows several VersaTac spiral staple postoperative artifacts in the left inguinal region. Pelvic soft tissues appear unremarkable. The bones of the pelvis appear intact. IMPRESSION no acute changes seen jaw - transcribed in [facility] - [facility] Raleigh Najera MD DIAGNOSTIC IMAGING ORDERABLE S Final Result * XR LUMBAR SPINE 2 OR 3 VW (10/21/2011 2:05 PM CDT) Anatomical Region Laterality Modality Spine Computed Radiogr aphy Impressions 10/26/2011 11:18 AM CDT 1. mild arthritic change 2. no acute changes seen jaw - transcribed in [employer] 10/26/2011 11:18 AM CDT ATTENTION: This replaces accession number [id number]. DESCRIPTION: AP and lateral lumbar spine views [...] - 10/26/2011 ATTENTION: This replaces accession number [id number]. DESCRIPTION: AP and lateral lumbar spine views [...] 10/30/13 Resolved 11/04/2013 11/04/2013 8 10:33 AM LEGGER PRESS OPERATOR R/O COVID-19 12/25/2019 12/25/2019 12/26/2019 2:46 PM CDT R/O COVID-19 05/09/2020 05/09/2020 05/09/2020 12:1 7 PM LEGGER PRESS OPERATOR documented as of this encounter Care Teams Information Services Tech Relationship Specialty Start Date End Date Dara Tavera FNP [address] [place] [address] PCP - General NURSE PRACTITIONER 10/13/18 documented as of this encounter
--- OUTSIDE RECORDS SUMMARY | 2025-05-08 18:45 | XMS_ITS | Clinical Summary ---
Author Organization [facility] Address [address] [place] [address] Care Team Providers Care Rfid Strategist Name Role Phone Sally Dong MD Primary Care Provider [phone] Allergies Active Allergy Reactions Criticality Noted Date Comments Adhesive Rash Low 02/12/2009 Codeine Nausea and Vomiting Low 02/12/2009 Duloxetine Other (See Comments) 02/24/2015 Fentanyl Hives High 11/07/2019 Fluoxetine Unknown 10/20/2018 Gabapentin Unknown,Hallucination Low 02/12/2009 Haloperidol Unknown 01/04/2022 Tardive dyskinesia Ketorolac Tromethamine Other (See Comments) Low Adverse drug reaction [place] Unknown 02/12/2009 Other reaction(s): shakey Metoclopramide Hcl [...] for Nausea/Emesis. Active naloxone (NARCAN) 4 mg/spray [facility], Non-Aerosol EMERGENCY USE ONLY: Administer 1 spray [...] Hematochezia 07/07/2009 10/26/2012 Personal history of MRSA (id thicillin resistant Staphylococcus aureus) 06/27/2009 018 Overview (10/14/2020): Under the arm abscess ~ 2015 Fever and chills 02/12/2009 10/26/2012 Hypoxemia 02/12/2009 04/06/2014 Encounters Date Type Department Care Team Description 05/01/2025 5:15 AM STAFF COMBAT INFORMATION CENTER OFFICER - 05/01/2025 11:59 PM STAFF COMBAT INFORMATION CENTER OFFICER Hospital Encounter [facility] [place] [address] [place] [address] [facility] Discharge Disposition: Home or Self Care 04/29/2025 6:20 AM STAFF COMBAT INFORMATION CENTER OFFICER - 04/29/2025 11:59 PM STAFF COMBAT INFORMATION CENTER OFFICER Hospital Encounter [facility] [place] [address] [phone] [facility] Discharge Disposition: Short term [facility] 04/20/2025 5:25 AM STAFF COMBAT INFORMATION CENTER OFFICER - 04/20/2025 11:59 PM STAFF COMBAT INFORMATION CENTER OFFICER Hospital Encounter [facility] [place] [address] [address] [facility] Discharge Disposition: [facility] 04/19/2025 8:27 PM CDT - 04/19/2025 9:59 PM CDT Emergency [facility] Emergency Medicine [address] [facility] [address] [place] [address] Tommy Matthews MD Sprain of right shoulder, unspecified shoulder sprain type, initial encounter (Primary Dx) Discharge Disposition: Home or Self Care 04/19/2025 Travel 04/10/2025 1:07 PM CDT - 04/10/2025 11:59 PM CDT Hospital Encounter [facility] [address] [facility] [address] [place] [address] Dara Tavera FNP Discharge Disposition: Home or Self Care 04/10/2025 Orders Only [facility] Admitting [address] [facility] [address] [place] [address] Dara Tavera FNP Low back pain with sciatica, sciatica laterality unspecified, unspecified back pain laterality, unspecified chronicity (Primary Dx) 04/07/2025 10:00 PM CDT - 04/08/2025 12:56 AM CDT Emergency [facility] Emergency Medicine [address] [facility] [address] [place] [address] Tommy Matthews MD Right flank pain (Primary Dx) Discharge Disposition: Home or Self Care 04/07/2025 Travel 03/23/2025 12:30 AM CDT - 03/23/2025 11:59 PM CDT Hospital Encounter [facility] [address] [facility] [address] [place] [address] Ambulance, [facility] Discharge Disposition: [facility] 03/18/2025 8:36 AM CDT - 03/18/2025 10:03 AM CDT Emergency [facility] Emergency Medicine [address] [facility] [address] [place] [address] Neck pain (Primary Dx) Discharge Disposition: Home or Self Care 03/08/2025 5:56 PM CDT - 03/08/2025 9:25 PM CDT Emergency [facility] Emergency Medicine [address] [facility] [address] [place] [address] Anand Bower DO Flank pain (Primary Dx) Discharge Disposition: Home or Self Care 03/08/2025 Travel 03/02/2025 1:05 PM CDT - 03/02/2025 11:59 PM CDT Hospital Encounter [facility] Services [place] [address] [place] [address] Ambulance, [facility] Discharge Disposition: [facility] 02/20/2025 8:40 PM CDT - 02/20/2025 10:04 PM CDT Emergency [facility] Emergency Medicine [address] [facility] [address] [place] [address] Tommy Matthews MD Chronic neck pain (Primary Dx) Discharge Disposition: Home or Self Care 02/20/2025 Travel 02/15/2025 4:28 PM CDT - 02/15/2025 5:10 PM CDT Emergency [facility] Emergency Medicine [address] [facility] [address] [place] [address] Neck muscle spasm (Primary Dx) Discharge Disposition: Home or Self Care 02/11/2025 10:49 AM CDT - 02/11/2025 11:59 PM CDT Hospital Encounter [facility] [address] [facility] [address] [place] [address] Dara Tavera FNP Discharge Disposition: Home or Self Care 02/11/2025 Orders Only [facility] Admitting [address] [facility] [address] [place] [address] Dara Tavera FNP Cervicalgia (Primary Dx) 02/09/2025 9:24 AM CDT - 02/09/2025 10:00 AM CDT Emergency [facility] Emergency Medicine [address] [facility] [address] [place] [address] Tommy Matthews MD Cervicalgia (Primary Dx) Discharge Disposition: Home or Self Care 02/09/2025 - 02/09/2025 11:59 PM CDT Hospital Encounter [facility] Emergency [facility] Services [place] [address] [place] [address] Ambulance, [facility] Discharge Disposition: [facility] 02/09/2025 Travel from Last 3 Months Immunizations Immunization [...] asked 05/05/2019 How often do you attend christianity or buddhist serv ices? Not asked 05/05/2019 Do you belong to any clubs o r organizations such as christianity groups, unions, fraternal or athletic groups, or [...] worry about transportation for future doctor visits, metal pickling equipment operator medication, etc.? No 2024 Housing Stability Answer [...] PM CDT Legal Sex Female 2:06 AM STAFF COMBAT INFORMATION CENTER OFFICER Gender Identity Female 03/25/2024 4:14 PM [...] SCREENING 01/12/2022 01/12/2017 Colorectal Cancer Screening 01/12/2022 [place]) Preventative Visit/Annual Wellness Visit 06/19/2024 INFLUENZA VACCINE (#1) 2025 , 02/19/2014, 02/17/2013, [...] VIEWS Routine 02/11/2025 11:00 AM CDT Cervicalgia HEMOGLOBIN A1C Routine 06/17/2018 7:12 AM STAFF COMBAT INFORMATION CENTER OFFICER from Last 3 Months or Most Recently [...] spine degenerative changes and scoliosis. Dara Tavera EDGE STAINER MACHINE DIAGNOSTIC IMAGING ORDERABL ES Final Result * (ABNORMAL) CBC WITH DIFFERENTIAL (04/07/2025 11:58 PM CDT) Only the most recent of2 resultswithin the time period is included. WBC 16.1(H) 4.0 - 10.0 K/uL 04/08/2025 12:26 AM [facility] RBC 3.99 3.93 - 5.22 M/uL 04/08/2025 12:26 AM [facility] HEMOGLOBIN 13.3 11.2 - 15.7 g/dL 04/08/2025 12:26 AM [facility] HEMATOCRIT 38.3 34.1 - 44.9 % 04/08/2025 12:26 AM [facility] MCV 96.0(H) 79.4 - 94.8 fL 04/08/2025 12:26 AM [facility] MCH 33.3(H) 25.6 - 32.2 pg 04/08/2025 12:26 AM [facility] MCHC 34.7 32.2 - 35.5 g/dL 04/08/2025 12:26 AM [facility] RDW 12.7 11.0 - 14.5 % 04/08/2025 12:26 AM [facility] RDW-STDEV 44.9 36.9 - 56.9 fL 04/08/2025 12:26 AM [facility] PLATELETS 234 163 - 337 K/uL 04/08/2025 12:26 AM [facility] MPV 9.8(L) 10.0 - 14.8 fL 04/08/2025 12:26 AM [facility] NEUTROPHILS 75(H) 34 - 71 % 04/08/2025 12:26 AM [facility] LYMPHOCYTES 16(L) 19 - 52 % 04/08/2025 12:26 AM [facility] MONOCYTES 6 5 - 13 % 04/08/2025 12:26 AM [facility] EOSINOPHILS 2 1 - 6 % 04/08/2025 12:26 AM [facility] BASOPHILS 1 0 - 1 % 04/08/2025 12:26 AM [facility] IMMATURE GRANULOCYTES 0 % 04/08/2025 12:26 AM [facility] NEUTROPHIL ABSOLUTE 12.05(H) 1.56 - 6.13 K/uL 04/08/2025 12:26 AM [facility] LYMPHOCYTE ABSOLUTE 2.57 1.20 - 3.40 K/uL 04/08/2025 12:26 AM [facility] MONOCYTE ABSOLUTE 0.99(H) 0.24 - 0.36 K/uL 04/08/2025 12:26 AM [facility] EOSINOPHIL ABSOLUTE 0.27 0.04 - 0.36 K/uL 04/08/2025 12:26 AM [facility] BASOPHILS ABSOLUTE 0.12(H) 0.01 - 0.08 K/uL 04/08/2025 12:26 AM [facility] IMMATURE GRANULOCYTES ABSOLUTE 0.05 K/uL 04/08/2025 12:26 AM [facility] Blood BLOOD SPECIMEN / Unknown Collection / Unknown 04/07/2025 11:58 PM CDT 04/08/2025 12:22 AM CDT us Tommy Matthews MD HEMATOLOGY ORDERABLES Fi nal Result [facility] CLIA # [id number] [address] [place] [address] * LIPASE (04/07/2025 11:58 PM CDT) Only the most recent of2 resultswithin the time period is included. [facility] LIPASE 20 13 - 60 U/L 04/08/2025 12:42 AM [facility] Blood BLOOD SPECIMEN / Unknown Collection / Unknown 04/07/2025 11:58 PM CDT 04/08/2025 12:22 AM CDT us Tommy Matthews MD CHEMISTRY ORDERABLES Fin al Result [facility] CLIA # [id number] [address] [place] [address] * (ABNORMAL) COMPREHENSIVE METABOLIC PANEL (04/07/2025 11:58 PM CDT) Only the most recent of2 resultswithin the time period is included. [facility] SODIUM 134(L) 136 - 145 mmol/L 04/08/2025 12:42 AM [facility] POTASSIUM 3.7 3.5 - 5.1 mmol/L 04/08/2025 12:42 AM [facility] CHLORIDE 99 98 - 107 mmol/L 04/08/2025 12:42 AM [facility] CO2 24 22 - 29 mmol/L 04/08/2025 12:42 AM [facility] CALCIUM 9.9 8.6 - 10.0 mg/dL 04/08/2025 12:42 AM [facility] BUN 14 6 - 20 mg/dL 04/08/2025 12:42 AM [facility] CREATININE 0.97(H) 0.51 - 0.95 mg/dL 04/08/2025 12:42 AM [facility] GLUCOSE 100(H) 74 - 99 mg/dL 04/08/2025 12:42 AM [facility] TOTAL PROTEIN 6.7 6.6 - 8.7 g/dL 04/08/2025 12:42 AM CDT [facility] ALBUMIN 4.1 3.5 - 5.2 g/dL 04/08/2025 12:42 AM T [facility] BILIRUBIN TOTAL 0.2 0.0 - 1.2 mg/dL 04/08/2025 12:42 AM [facility] ALKALINE PHOSPHATASE 121(H) 35 - 104 U/L 04/08/2025 12:42 AM [facility] AST 16 0 - 35 U/L 04/08/2025 12:42 AM T [facility] ALT 10 0 - 35 U/L 04/08/2025 12:42 AM [facility] GFR >60 >=60 mL/min/1.7 3 sq meter 04/08/2025 12:42 AM [facility] Comment:eGFR calculated with 2020 CKD-EPI equation. Vegetarian diet, extremely high or low muscle mass, and may affect results. Cystatin C with Glomerular Filtration Rate is a suitable alternative for these patients. ANION GAP 11 5 - 20 mmol/L 04/08/2025 12:42 AM T [facility] Blood BLOOD SPECIMEN / Unknown Collection / Unknown 04/07/2025 11:58 PM CDT 04/08/2025 12:22 AM CDT us Tommy Matthews MD CHEMISTRY ORDERABLES Fin al Result [facility] # [id number] [address] [place] [address] * CT ABDOMEN PELVIS WO CONTRAST (04/07/2025 [...] - 2 /hpf 04/07/2025 9:37 PM CDT [facility] RBC UA 0-2 0 - 2 /hpf 04/07/2025 9:37 PM CDT [facility] BACTERIA UA Negative Negative /hpf 04/07/2025 9:37 PM CDT [facility] EPITHELIAL CELLS, URINE 0-5 0 - 5 /hpf 04/07/2025 9:37 PM CDT [facility] Urine URINE SPECIMEN OBTAINED BY CLEAN CATCH PROCEDURE / Unknown Collection / Unknown 04/07/2025 9:30 PM CDT 04/07/2025 9:34 PM CDT Tommy Matthews MD URINE ORDERABLES Final R esult [facility] CLIA # [id number] [address] [place] [address] * (ABNORMAL) URINALYSIS WITH REFLEX MICROSCOPIC (04/07/2025 9:30 PM CDT) Only the most recent of2 resultswithin the time period is included. COLOR UA Yellow Pale to Dark Yellow 04/07/2025 9:37 PM CDT [facility] CLARITY UA Clear Clear 04/07/2025 9:37 PM CDT [facility] SPECIFIC GRAVITY UA <=1.005 1.003 - 1.035 04/07/2025 9:37 PM CDT [facility] PH UA 6.0 5.0 - 8.0 04/07/2025 9:37 PM CDT [facility] LEUKOCYTE ESTERASE UA 1+(A) Negative 04/07/2025 9:37 PM CDT [facility] NITRITE UA Negative Negative 04/07/2025 9:37 PM CDT [facility] PROTEIN UA Negative Negative 04/07/2025 9:37 PM CDT [facility] GLUCOSE UA Negative Negative 04/07/2025 9:37 PM CDT [facility] KETONES UA Negative Negative 04/07/2025 9:37 PM CDT [facility] UROBILINOGEN UA 0.2 <2.0 mg/dL 9:37 PM CDT [facility] BILIRUBIN UA Negative Negative 04/07/2025 9:37 PM CDT [facility] BLOOD UA Negative Negative 04/07/2025 9:37 PM CDT [facility] Urine URINE SPECIMEN OBTAINED BY CLEAN CATCH PROCEDURE / Unknown Collection / Unknown 04/07/2025 9:30 PM CDT 04/07/2025 9:34 PM CDT us Tommy Matthews MD URINE ORDERABLES Final [facility] es[id number] [address] [place] [address] * XR ABDOMEN 1 VW (03/08/2025 8:06 [...] DRUG SCREEN, URINE (03/08/2025 6:03 PM CDT) [facility] Signature CANNABINOIDS QUAL, URINE Negative Negative 03/08/2025 6:33 PM CDT [facility] PCP QUAL, URINE Negative Negative 6:33 PM CDT [facility] COCAINE QUAL URINE Negative Negative 2024 6:33 PM CDT [facility] METHAMPHETAMINE QUAL, URINE Negative Negative 03/08/2025 6:33 PM CDT [facility] OPIATE QUAL, URINE Presumptive Positive(A) Negative 03/08/2025 6:33 PM CDT [facility] AMPHETAMINE QUAL, URINE Negative Negative 03/08/2025 6:33 PM CDT [facility] BENZODIAZEPINE QUAL, URINE Presumptive Positive(A) Negative 03/08/2025 6:33 PM CDT [facility] TRICYCLICS QUAL, URINE Presumptive Positive(A) Negative 03/08/2025 6:33 PM CDT [facility] METHADONE QUAL, URINE Negative Negative 03/08/2025 6:33 PM CDT [facility] BARBITURATE QUAL, URINE Negative Negative 03/08/2025 6:33 PM CDT [facility] OXYCODONE QUAL, URINE Negative Negative 03/08/2025 6:33 PM CDT [facility] Urine URINE SPECIMEN OBTAINED BY CLEAN CATCH PROCEDURE / Unknown Collection / Unknown 03/08/2025 6:03 PM CDT 03/08/2025 6:17 PM CDT Narrative [facility] - 03/08/2025 6:33 PM CDT This test [...] Anand Bower DO URINE ORDERABLES Final Result Performing Organization Address City/State/[facility] Co de Phone Number [facility] CLIA # [id number] [address] [place] [address] * XR CERVICAL SPINE 2 OR 3 [...] Impression: 1. As above. us Dara Tavera EDGE STAINER MACHINE DIAGNOSTIC IMAGING ORDERABL ES Final Result * HEMOGLOBIN A1C (06/17/2018 7:12 AM STAFF COMBAT INFORMATION CENTER OFFICER) HEMOGLOBIN A1C 5.2 4.8 - 5.9 % 06/17/2018 9:37 AM STAFF COMBAT INFORMATION CENTER OFFICER [facility] EST. AVG GLUCOSE, A1C 103 mg/dL 06/17/2018 9:37 AM [facility] Blood Venipuncture / Unknown 06/17/2018 7:12 AM STAFF COMBAT INFORMATION CENTER OFFICER 06/17/2018 7:13 AM STAFF COMBAT INFORMATION CENTER OFFICER Narrative [facility] - 06/17/2018 9:37 AM STAFF COMBAT INFORMATION CENTER OFFICER If not available from last three months. HGB A1C INTERPRETATION NORMAL: <5.7% PRE-DIABETES: 5.7 - 6.4% DIABETES: 6.5% OR GREATER us Benedicto Mcgill MD CHEMISTRY ORDERABLES Final Result [facility] # [id number] [address] [place] [address] [facility] CLIA # [id number] [address] [place] [address] from Last 3 Months or Most Recently Relevant to Health Maintenance Insurance MEDICAID [facility] DUAL COMPLETE HMO DSNP [facility] [id number] MEDICAID [place] Advance Directives For more information, please contact: [phone] Documents on File Type Date Recorded Patient Securities Adviser Expl anation Advance Directive POA 02/23/2024 3:51 [...] 1:52 AM 10/27/2021 2:07 PM Care Teams Rfid Strategist Relationship Specialty Start Date End Date Sally Dong MD [address] [facility] [address] [place] [phone] PCP - General Family Practice 04/07/22
--- OUTSIDE RECORDS SUMMARY | 2025-05-08 18:45 | XMS_ITS | Encounter Summary ---
Author Organization [facility] Address [address] [place] [address] Care Team Providers Care Network Support Administrator Name Role Phone Dara Tavera Primary Care Provider [phone] Encounter Details Date Type Department Care Team (Latest Contact Info) Description 11/12/2006 Outpatient Historical [facility] [address] [place] [address] AMBULANCE, [facility] Pain in Joint, Shoulder Region (Primary Dx) Social History Tobacco Use Types Packs/Day Years Used Date Smoking Tobacco: Never Assessed Comments Unknown Sex and Gender Information Value Date Recorded Sex Assigned at Not on file Legal Sex Female 5:22 AM ADULT NEUROPSYCHOLOGIST Gender Identity Not on file Sexual Orientation Not on file documented as of this encounter Plan of Treatment Not on file documented as of this encounter Visit Diagnoses Diagnosis Pain in joint, shoulder region- Primary documented in this encounter Additional Health Concerns Infection Onset Date Last Indicated Resolved 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
--- OUTSIDE RECORDS SUMMARY | 2025-05-08 18:45 | XMS_ITS | Encounter Summary ---
Author Organization [facility] Address [address] [place] [address] Care Team Providers Care Decaler Name Role Phone Dara Tavera AIR TANK ASSEMBLER Primary Care Provider Reason for Visit * Reason Comments Medication Refill Encounter Details Date Type Department Care Team (Late st Contact Info) Description 07/25/2019 Refill [facility] [address] [place] [address] Danial Farias, HETAL [address] [place] [address] Social History Tobacco Use Types [...] asked 05/05/2019 How often do you attend bahai or gnosticism serv ices? Not asked 05/05/2019 Do you belong to any clubs o r organizations such as bahai groups, unions, fraternal or athletic groups, or [...] file Legal Sex Female 5:22 AM SEARCH ENGINEER Gender Identity Not on file Sexual [...] 05/09/2020 05/09/2020 05/09/2020 12:1 7 PM SEARCH ENGINEER documented as of this encounter Care Teams Decaler Relationship Specialty Start Date End Date Dara Tavera FNP [address] [place] [phone] PCP - General NURSE PRACTITIONER 10/13/18 documented as of this encounter
--- OUTSIDE RECORDS SUMMARY | 2025-05-08 18:45 | XMS_ITS | Encounter Summary ---
Author Organization [facility] Address [address] [place] [address] Care Team Providers Care Liquefied Natural Gas Plant Operator Name Role Phone Dara Tavera AMANDEEP Primary Care Provider Encounter Details Date Type Department Care Team (Latest Contact Info) Description 01/14/2007 Outpatient Historical [facility] [address] [place] [address] AMBULANCE, [facility] Hemorrhage of Rectum and Anus (Primary Dx) Social History Tobacco Use Types Packs/Day Years Used Date Smoking Tobacco: Never Assessed Comments Unknown Sex and Gender Information Value Date Recorded Sex Assigned at Not on file Legal Sex Female 5:22 AM MGMT SPECIALIST Gender Identity Not on file Sexual [...] 10/30/13 Resolved 11/04/2013 11/04/2013 8 10:33 AM MGMT SPECIALIST R/O COVID-19 12/25/2019 12/25/2019 12/26/2019 2:46 PM CDT R/O COVID-19 05/09/2020 05/09/2020 05/09/2020 12:1 7 PM MGMT SPECIALIST documented as of this encounter Care Teams Liquefied Natural Gas Plant Operator Relationship Specialty Start Date End Date Dara Tavera FNP [address] [place] [phone] PCP - General NURSE PRACTITIONER 10/13/18 documented as of this encounter
--- OUTSIDE RECORDS SUMMARY | 2025-05-08 18:45 | XMS_ITS | Encounter Summary ---
Author Organization [facility] Address [address] [place] [address] Care Team Providers Care Vice President Quality Assurance Name Role Phone Dara Tavera Primary Care Provider Encounter Details Date Type Department Care Team (Latest Contact Info) Description 03/06/2006 Outpatient Historical [facility] [address] [place] [address] AMBULANCE, [facility] Other Convulsions (CMS/HCC) (Primary Dx) Social History Tobacco Use Types Packs/Day Years Used Date Smoking Tobacco: Never Assessed Comments Unknown Sex and Gender Information Value Date Recorded Sex Assigned at Not on file Legal Sex Female 5:22 AM JACQUARD CARD LACER Gender Identity Not on file Sexual Orientation Not on file documented as of this encounter Plan of Treatment Not on file documented as of this encounter Visit Diagnoses Diagnosis Other convulsions- Primary documented in this encounter Additional Health Concerns Infection Onset Date Last Indicated Resolved Time 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
--- OUTSIDE RECORDS SUMMARY | 2025-05-08 18:45 | XMS_ITS | Encounter Summary ---
Author Organization [facility] Address [address] [place] [address] Care Team Providers Care Marking Machine Tender Name Role Phone Dara Tavera Primary Care Provider Encounter Details Date Type Department Care Team (Latest Contact Info) Description 03/15/2006 Outpatient Historical [facility] [address] [place] [address] AMBULANCE, [facility] Other Injury of Abdomen (Primary Dx) Social History Tobacco Use Types Packs/Day Years Used Date Smoking Tobacco: Never Assessed Comments Unknown Sex and Gender Information Value Date Recorded Sex Assigned at Not on file Legal Sex Female 5:22 AM INFORMATION SYSTEMS SECURITY DEVELOPER Gender Identity Not on file Sexual Orientation Not on file documented as of this encounter Plan of Treatment Not on file documented as of this encounter Visit Diagnoses Diagnosis Other injury of abdomen- Primary documented in this encounter Additional Health Concerns Infection Onset Date Last Indicated Resolved Time 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
--- OUTSIDE RECORDS SUMMARY | 2025-05-08 18:45 | XMS_ITS | Encounter Summary ---
Author Organization [facility] Address [address] [place] [address] Care Team Providers Care Agile Java Developer Name Role Phone Dara Tavera Primary Care Provider Encounter Details Date Type Department Care Team (Latest Contact Info) Description 12/12/2006 Outpatient Historical [facility] [address] [place] [address] AMBULANCE, [facility] VIEW Open Wound of Wrist, without Mention of Complication (Primary Dx) Social History Tobacco Use Types Packs/Day Years Used Date Smoking Tobacco: Never Assessed Comments Unknown Sex and Gender Information Value Date Recorded Sex Assigned at Not on file Legal Sex Female 5:22 AM EMBOSSING CLERK Gender Identity Not on file Sexual Orientation Not on file documented as of this encounter Plan of Treatment Not on file documented as of this encounter Visit Diagnoses Diagnosis Open wound of wrist, without mention of complication- Primary documented in this encounter Additional Health Concerns Infection Onset Date Last Indicated Resolved Time 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
--- OUTSIDE RECORDS SUMMARY | 2025-05-08 18:45 | XMS_ITS | Encounter Summary ---
Author Organization [facility] Address [address] [place] [address] Care Team Providers Care Bar Hostess Name Role Phone Dara Tavera HYPOID GEAR GENERATOR Primary Care Provider Reason for Referral * Outpatient Services (Routine) - Closed Specialty Diagnoses / Procedures Referred By Contac t Referred To Contact Radiology Diagnoses Chest pain, unspecified chest pain type SOB (shortness of breath) on exertion Procedures ECHO STRESS W CONTRAST EXER W DOPP AND COLOR FL ECHO STRESS TEST EXERCISE W DOPP AND COLOR FLOW Jorge Taylor MD [facility] [place] [address] [place] [address] Phone: tel: fax: Referral ID Status Reason Start Date Expiration Date V isits Requested Visits Authorized [id number] Closed [facility] TO SCHEDULE (SGF) 10/05/2015 11/04/2016 1 1 Encounter Details Date Type Department Care Team (Latest Contact Info) Description 10/05/2015 Ancillary Orders [facility] Pulmonology [facility] [address] [place] [address] Jorge Taylor MD NO ADDRESS [...] on file Legal Sex Female 5:22 AM MAC ARTIST Gender Identity Not on file Sexual [...] INTERFACE SYSTEM - 10/05/2015 12:22 PM CDT [facility] Echocardiography-[address] [place] [address] Stress Echocardiography Rafy protocol Patient: Choco Study ECHO STRESS Latesha Solis ID: TEST Gender: Jaye : 1965 Age: 49 Room: Study 10/05/2015 Pt Outpatient Date: Status: Study 11:16 AM [facility] #: [id number] Time: Ordering:Jorge Taylor Interpreting:Stephen Alberts MD Nail Machine Operator: Rosario Cam [facility] Indications and History: Chest Pain, [...] peak heart rate and blood pressure was 96470ib Hg/min. Functional capacity was decreased (greater than [...] Treadmill exercise testing was performed using the Rayf protocol. The patient exercised for 2 min [...] peak heart rate and blood pressure was 60891wz Hg/min. Functional capacity was decreased (greater than [...] (*) waterman values outside specified normal range. [facility] are accredited with the Intersocietal Accreditation Commission - Echocardiography. Prepared and Electronically Authenticated Stephen Alberts MD Confirmed 10/05/2015 12:22 Procedure Note Stephen Alberts MD - 10/05/2015 [facility] Echocardiography-[place] [address] [place] [address] [place] [address] Stress Echocardiography Rafy protocol Patient: Choco Study ECHO STRESS Latesha Solis ID: TEST Gender: F : 1965 Age: 49 Room: Study 10/05/2015 Pt Outpatient Date: Status: Study 11:16 AM CSN #: [id number] Time: Ordering:Jorge Taylor Interpreting:Stephen Alberts MD Nail Machine Operator: Rosario Cam [facility] Indications and History: Chest Pain, [...] peak heart rate and blood pressure was 54065jl Hg/min. Functional capacity was decreased (greater than [...] peak heart rate and blood pressure was 46720pe Hg/min. Functional capacity was decreased (greater than [...] (*) waterman values outside specified normal range. [facility] are accredited with the [...] 10/30/13 Resolved 11/04/2013 11/04/2013 8 10:33 AM MAC ARTIST R/O COVID-19 12/25/2019 12/25/2019 12/26/2019 2:46 PM CDT R/O COVID-19 05/09/2020 05/09/2020 05/09/2020 12:1 7 PM MAC ARTIST documented as of this encounter Care Teams Bar Hostess Relationship Specialty Start Date End Date Dara Tavera FNP [address] [place] [address] PCP - General NURSE PRACTITIONER 10/13/18 documented as of this encounter
--- OUTSIDE RECORDS SUMMARY | 2025-05-08 18:45 | XMS_ITS | Encounter Summary ---
Author Organization [facility] Address [address] [place] [address] Care Team Providers Care Condominium Association Manager Name Role Phone Dara Tavera Primary Care Provider Encounter Details Date Type Department Care Team (Latest Contact Info) Description 12/18/2006 Outpatient Historical [facility] [address] [place] [address] AMBULANCE, [facility] Other Chest Pain (Primary Dx) Social History Tobacco Use Types Packs/Day Years Used Date Smoking Tobacco: Never Assessed Comments Unknown Sex and Gender Information Value Date Recorded Sex Assigned at Not on file Legal Sex Female 5:22 AM POLICE OR PATROL PARK OFFICER Gender Identity Not on file Sexual Orientation Not on file documented as of this encounter Plan of Treatment Not on file documented as of this encounter Visit Diagnoses Diagnosis Other chest pain- Primary documented in this encounter Additional Health Concerns Infection Onset Date Last Indicated Resolved Time VRE Comment:Urine 10/30/13 Resolved 11/04/2013 11/04/2013 8 10:33 AM POLICE OR PATROL PARK OFFICER R/O COVID-19 12/25/2019 12/25/2019 12/26/2019 2:46 PM CDT R/O COVID-19 05/09/2020 05/09/2020 05/09/2020 12:1 7 PM POLICE OR PATROL PARK OFFICER documented as of this encounter Care Teams Condominium Association Manager Relationship Specialty Start Date End Date Dara Tavera FNP [address] [place] [address] PCP - General NURSE PRACTITIONER 10/13/18 documented as of this encounter
--- OUTSIDE RECORDS SUMMARY | 2025-05-08 18:45 | XMS_ITS | Encounter Summary ---
Author Organization [facility] Address [address] [place] [address] Care Team Providers Care Mine Analyst Name Role Phone Dara Tavera Primary Care Provider Encounter Details Date Type Department Care Team (Latest Contact Info) Description 04/07/2006 Outpatient Historical [facility] [address] [place] [address] AMBULANCE, [facility] Other Convulsions (CMS/HCC) (Primary Dx) Social History Tobacco Use Types Packs/Day Years Used Date Smoking Tobacco: Never Assessed Comments Unknown Sex and Gender Information Value Date Recorded Sex Assigned at Not on file Legal Sex Female 5:22 AM WIND FIELD SERVICE MANAGER Gender Identity Not on file Sexual Orientation Not on file documented as of this encounter Plan of Treatment Not on file documented as of this encounter Visit Diagnoses Diagnosis Other convulsions- Primary documented in this encounter Additional Health Concerns Infection Onset Date Last Indicated Resolved Time VRE Comment:Urine 10/30/13 Resolved 11/04/2013 11/04/2013 8 10:33 AM WIND FIELD SERVICE MANAGER R/O COVID-19 12/25/2019 12/25/2019 12/26/2019 2:46 PM CDT R/O COVID-19 05/09/2020 05/09/2020 05/09/2020 12:1 7 PM WIND FIELD SERVICE MANAGER documented as of this encounter Care Teams Mine Analyst Relationship Specialty Start Date End Date Dara Tavera FNP [address] [place] [phone] PCP - General NURSE PRACTITIONER 10/13/18 documented as of this encounter
--- OUTSIDE RECORDS SUMMARY | 2025-05-08 18:45 | XMS_ITS | Encounter Summary ---
Author Organization [facility] Address [address] [place] [address] Care Team Providers Care Pipeliner Name Role Phone Dara Tavera Primary Care Provider Encounter Details Date Type Department Care Team (Latest Contact Info) Description 03/16/2006 Outpatient Historical [facility] [address] [place] [address] AMBULANCE, [facility] Abdominal Pain, Unspecified Site (Primary Dx) Social History Tobacco Use Types Packs/Day Years Used Date Smoking Tobacco: Never Assessed Comments Unknown Sex and Gender Information Value Date Recorded Sex Assigned at Not on file Legal Sex Female 5:22 AM EXHIBIT PREPARATOR Gender Identity Not on file Sexual Orientation Not on file documented as of this encounter Plan of Treatment Not on file documented as of this encounter Visit Diagnoses Diagnosis Abdominal pain, unspecified site- Primary documented in this encounter Additional Health Concerns Infection Onset Date Last Indicated Resolved Time VRE Comment:Urine 10/30/13 Resolved 11/04/2013 11/04/2013 8 10:33 AM EXHIBIT PREPARATOR R/O COVID-19 12/25/2019 12/25/2019 12/26/2019 2:46 PM CDT R/O COVID-19 05/09/2020 05/09/2020 05/09/2020 12:1 7 PM EXHIBIT PREPARATOR documented as of this encounter Care Teams Pipeliner Relationship Specialty Start Date End Date Dara Tavera FNP [address] [place] [address] PCP - General NURSE PRACTITIONER 10/13/18 documented as of this encounter
--- OUTSIDE RECORDS SUMMARY | 2025-05-08 18:45 | XMS_ITS | Encounter Summary ---
Author Organization [facility] Address [address] [place] [address] Care Team Providers Care Purler Name Role Phone Dara Tavera Primary Care Provider [phone] Encounter Details Date Type Department Care Team (Late st Contact Info) Description 09/07/2020 Ancillary Orders [facility] [address] [place] [address] Dara Tavera FNP [address] [place] [address] Pain in left foot Social [...] asked 05/05/2019 How often do you attend christian or jain serv ices? Not asked 05/05/2019 Do you belong to any clubs o r organizations such as christian groups, unions, fraternal or athletic groups, or [...] file Legal Sex Female 5:22 AM INTEGRATED CIRCUIT FABRICATOR Gender Identity Not on file Sexual Orientation [...] union. 3. Osteoarthritis of the tarsometatarsal joints. [id number] Narrative Procedure Note Akira Liu MD - [...] union. 3. Osteoarthritis of the tarsometatarsal joints. [id number] Dara [facility] ORDERABL ES Final Result documented in this encounter Visit Diagnoses Diagnosis Pain in left foot Pain in limb Pain in left foot Pain in limb documented in this encounter Care Teams Purler Relationship Specialty Start Date End Date Dara Tavera FNP [address] [place] [phone] PCP - General NURSE PRACTITIONER 10/13/18 documented as of this encounter
--- OUTSIDE RECORDS SUMMARY | 2025-05-08 18:45 | XMS_ITS | Encounter Summary ---
Author Organization [facility] Address [address] [facility] [place] [place] [address] Care Team Providers Care Nursing Care Partner Name Role Phone Dara Tavera AMANDEEP Primary Care Provider Encounter Details Date Type Department Care Team (Latest Contact Info) Description 07/10/2020 Ancillary Orders [facility] Centralized Scheduling [address] [place] [address] Don Loja MD [address] [place] [address] Abdominal pain, unspecified abdominal location; [...] asked 05/05/2019 How often do you attend yarsanism or baptist serv ices? Not asked 05/05/2019 Do you belong to any clubs o r organizations such as yarsanism groups, unions, fraternal or athletic groups, or [...] file Legal Sex Female 5:22 AM INFORMATION CLERK AUTOMOBILE CLUB Gender Identity Not on file Sexual Orientation [...] COVID-19? No / Unsure 07/08/2020 6:45 PM INFORMATION CLERK AUTOMOBILE CLUB documented as of this encounter Plan of Treatment Not on file documented as of this encounter Visit Diagnoses Diagnosis Abdominal pain, unspecified abdominal location Change in bowel habit documented in this encounter Care Teams Nursing Care Partner Relationship Specialty Start Date End Date Dara Tavera FNP [address] [place] [address] PCP - General NURSE PRACTITIONER 10/13/18 documented as of this encounter
--- OUTSIDE RECORDS SUMMARY | 2025-05-08 18:45 | XMS_ITS | Encounter Summary ---
Author Organization [facility] Address [address] [place] [address] Care Team Providers Care Internet Webmaster Name Role Phone Dara Tavera Primary Care Provider Encounter Details Date Type Department Care Team (Latest Contact Info) Description 04/12/2006 Outpatient Historical [facility] [address] [place] [address] AMBULANCE, [facility] Nausea with Vomiting (Primary Dx) Social History Tobacco Use Types Packs/Day Years Used Date Smoking Tobacco: Never Assessed Comments Unknown Sex and Gender Information Value Date Recorded Sex Assigned at Not on file Legal Sex Female 5:22 AM THREAD CHECKER Gender Identity Not on file Sexual Orientation Not on file documented as of this encounter Plan of Treatment Not on file documented as of this encounter Visit Diagnoses Diagnosis Nausea with vomiting- Primary documented in this encounter Additional Health Concerns Infection Onset Date Last Indicated Resolved Time VRE Comment:Urine 10/30/13 Resolved 11/04/2013 11/04/2013 8 10:33 AM THREAD CHECKER R/O COVID-19 12/25/2019 12/25/2019 12/26/2019 2:46 PM CDT R/O COVID-19 05/09/2020 05/09/2020 05/09/2020 12:1 7 PM THREAD CHECKER documented as of this encounter Care Teams Internet Webmaster Relationship Specialty Start Date End Date Dara Tavera FNP [address] [place] [address] PCP - General NURSE PRACTITIONER 10/13/18 documented as of this encounter
--- OUTSIDE RECORDS SUMMARY | 2025-05-08 18:45 | XMS_ITS | Encounter Summary ---
Author Organization [facility] Address [address] [place] [address] Care Team Providers Care Spa Receptionist Name Role Phone Dara Tavera Primary Care Provider Encounter Details Date Type Department Care Team (Latest Contact Info) Description 11/20/2006 Outpatient Historical [facility] [address] [place] [address] AMBULANCE, [facility] Pain in Joint, Shoulder Region (Primary Dx) Social History Tobacco Use Types Packs/Day Years Used Date Smoking Tobacco: Never Assessed Comments Unknown Sex and Gender Information Value Date Recorded Sex Assigned at Not on file Legal Sex Female 5:22 AM FIRE CONTROL ASSISTANT Gender Identity Not on file Sexual Orientation Not on file documented as of this encounter Plan of Treatment Not on file documented as of this encounter Visit Diagnoses Diagnosis Pain in joint, shoulder region- Primary documented in this encounter Additional Health Concerns Infection Onset Date Last Indicated Resolved Time VRE Comment:Urine 10/30/13 Resolved 11/04/2013 11/04/2013 8 10:33 AM FIRE CONTROL ASSISTANT R/O COVID-19 12/25/2019 12/25/2019 12/26/2019 2:46 PM CDT R/O COVID-19 05/09/2020 05/09/2020 05/09/2020 12:1 7 PM FIRE CONTROL ASSISTANT documented as of this encounter Care Teams Spa Receptionist Relationship Specialty Start Date End Date Dara Tavera FNP [address] [place] [address] PCP - General NURSE PRACTITIONER 10/13/18 documented as of this encounter
--- OUTSIDE RECORDS SUMMARY | 2025-05-08 18:45 | XMS_ITS | Encounter Summary ---
Author Organization [facility] Address [address] [place] [address] Care Team Providers Care District Sales Manager Name Role Phone Dara Tavera ROD AND TUBE STRAIGHTENER Primary Care Provider Encounter Details Date Type [...] on file Legal Sex Female 5:22 AM ORACLE FORMS DEVELOPER Gender Identity Not on file Sexual [...] By: Lionel Hays M.D. Date Signed: 11/29/06 [facility] Procedure Note 05/09/2009 Multiplanar imaging of the [...] By: Lionel Hays M.D. Date Signed: 11/29/06 [facility] Luis Ross MD MR ORDERABLES Final Result [...] 10/30/13 Resolved 11/04/2013 11/04/2013 8 10:33 AM ORACLE FORMS DEVELOPER R/O COVID-19 12/25/2019 12/25/2019 12/26/2019 2:46 PM CDT R/O COVID-19 05/09/2020 05/09/2020 05/09/2020 12:1 7 PM ORACLE FORMS DEVELOPER documented as of this encounter Care Teams District Sales Manager Relationship Specialty Start Date End Date Dara Tavera FNP [address] [place] [phone] PCP - General NURSE PRACTITIONER 4/27/19 documented as of this encounter
--- OUTSIDE RECORDS SUMMARY | 2025-05-08 18:45 | XMS_ITS | Encounter Summary ---
Author Organization [facility] Address [address] [place] [address] Care Team Providers Care Tool And Die Maker/Designer Name Role Phone Dara Tavera AMANDEEP Primary Care Provider Encounter Details Date Type Department Care Team (Late st Contact Info) Description 01/14/2007 Emergency [facility] Emergency Department [address] [place] [address] Benedicto Rojo MD NO ADDRESS ON FILE Abdominal Pain, Other Specified Site (Primary Dx) Social History Tobacco Use Types Packs/Day Years Used Date Smoking Tobacco: Never Assessed Comments Unknown Sex and Gender Information Value Date Recorded Sex Assigned at Not on file Legal Sex Female 5:22 AM SENIOR RADIATION THERAPIST Gender Identity Not on file Sexual Orientation [...] MD CHEMISTRY ORDERABLES Edited Performing Organization Address [facility] de Phone Number INTERFACE SYSTEM Refer [...] MD HEMATOLOGY ORDERABLES Edited Performing Organization Address [facility] Co de Phone Number INTERFACE SYSTEM Refer to clinic/hospital department documented in this encounter Visit Diagnoses Diagnosis Abdominal pain, other specified site- Primary documented in this encounter Additional Health Concerns Infection Onset Date Last Indicated Resolved Time VRE Comment:Urine 10/30/13 Resolved 11/04/2013 11/04/2013 8 10:33 AM SENIOR RADIATION THERAPIST R/O COVID-19 12/25/2019 12/25/2019 12/26/2019 2:46 PM CDT R/O COVID-05/09/2020 05/09/2020 05/09/2020 12:1 7 PM SENIOR RADIATION THERAPIST documented as of this encounter Care Teams Tool And Die Maker/Designer Relationship Specialty Start Date End Date Dara Tavera FNP [address] [place] [phone] PCP - General NURSE PRACTITIONER 10/13/18 documented as of this encounter
--- OUTSIDE RECORDS SUMMARY | 2025-05-08 18:45 | XMS_ITS | Encounter Summary ---
Author Organization [facility] Address [address] [place] [address] Care Team Providers Care Journeyman Level Acoustic Analyst Name Role Phone Dara Tavera Primary Care Provider [phone] Encounter Details Date Type Department Care Team (Latest Contact Info) Description 03/15/2006 Outpatient Historical [facility] Medicine [place] [address] [facility] [address] [place] [address] Faiza Petersen MD NO ADDRESS ON FILE Open Wnd Anterior Abdomen (Primary Dx); Obesity, Unspecified Social History Tobacco Use Types Packs/Day Years Used Date Smoking Tobacco: Never Assessed Comments Unknown Sex and Gender Information Value Date Recorded Sex Assigned at Not on file Legal Sex Female 5:22 AM DIRECTOR LONG TERM CARE Gender Identity Not on file Sexual Orientation [...] Resolved 11/04/2013 11/04/2013 8 10:33 AM DIRECTOR LONG TERM CARE R/O COVID-19 12/25/2019 12/25/2019 12/26/2019 2:46 PM CDT R/O COVID-19 05/09/2020 05/09/2020 05/09/2020 12:1 7 PM DIRECTOR LONG TERM CARE documented as of this encounter Care Teams Journeyman Level Acoustic Analyst Relationship Specialty Start Date End Date Dara Tavera FNP [address] [place] [address] PCP - General NURSE PRACTITIONER 10/13/18 documented as of this encounter
--- OUTSIDE RECORDS SUMMARY | 2025-05-08 18:45 | XMS_ITS | Encounter Summary ---
Author Organization [facility] Address [address] [place] [address] Care Team Providers Care Supervisor Fine Grading Name Role Phone Dara Tavera Primary Care Provider Encounter Details Date Type Department Care Team (Late st Contact Info) Description 11/05/2006 Outpatient Historical [facility] [address] [place] [address] AMBULANCE, [facility] Social History Tobacco Use Types Packs/Day Years Used Date Smoking Tobacco: Never Assessed Comments Unknown Sex and Gender Information Value Date Recorded Sex Assigned at Not on file Legal Sex Female 5:22 AM MAILHOUSE OPERATOR Gender Identity Not on file Sexual Orientation Not on file documented as of this encounter Plan of Treatment Not on file documented as of this encounter Visit Diagnoses Not on filedocumented in this encounter Additional Health Concerns Infection Onset Date Last Indicated Resolved Time VRE Comment:Urine 10/30/13 Resolved 11/04/2013 11/04/2013 8 10:33 AM MAILHOUSE OPERATOR R/O COVID-19 12/25/2019 12/25/2019 12/26/2019 2:46 PM CDT R/O COVID-19 05/09/2020 05/09/2020 05/09/2020 12:1 7 PM MAILHOUSE OPERATOR documented as of this encounter Care Teams Supervisor Fine Grading Relationship Specialty Start Date End Date Dara Tavera FNP [address] [place] [address] PCP - General NURSE PRACTITIONER 10/13/18 documented as of this encounter
--- OUTSIDE RECORDS SUMMARY | 2025-05-08 18:45 | XMS_ITS | Encounter Summary ---
Author Organization [facility] Address [address] [place] [address] Care Team Providers Care Grocery Cashier Name Role Phone Dara Tavera Primary Care Provider Encounter Details Date Type Department Care Team (Latest Contact Info) Description 02/04/2007 Outpatient Historical [facility] [address] [place] [address] AMBULANCE, [facility] Cervicalgia (Primary Dx) Social History Tobacco Use Types Packs/Day Years Used Date Smoking Tobacco: Never Assessed Comments Unknown Sex and Gender Information Value Date Recorded Sex Assigned at Not on file Legal Sex Female 5:22 AM KITCHEN FOOD SERVER Gender Identity Not on file Sexual Orientation Not on file documented as of this encounter Plan of Treatment Not on file documented as of this encounter Visit Diagnoses Diagnosis Cervicalgia- Primary documented in this encounter Additional Health Concerns Infection Onset Date Last Indicated Resolved Time VRE Comment:Urine 10/30/13 Resolved 11/04/2013 11/04/2013 8 10:33 AM KITCHEN FOOD SERVER R/O COVID-19 12/25/2019 12/25/2019 12/26/2019 2:46 PM CDT R/O COVID-19 05/09/2020 05/09/2020 05/09/2020 12:1 7 PM KITCHEN FOOD SERVER documented as of this encounter Care Teams Grocery Cashier Relationship Specialty Start Date End Date Dara Tavera FNP [address] [place] [address] PCP - General NURSE PRACTITIONER 10/13/18 documented as of this encounter
--- OUTSIDE RECORDS SUMMARY | 2025-05-08 18:45 | XMS_ITS | Encounter Summary ---
Author Organization [facility] Address [address] [place] [address] Care Team Providers Care Corral Boss Name Role Phone Dara Tavera Primary Care Provider [phone] Encounter Details Date Type Department Care Team (Late st Contact Info) Description 05/19/[address] [facility] [address] [place] [address] AMBULANCE, [facility] Social History Tobacco Use Types Packs/Day Years Used Date Smoking Tobacco: Never Assessed Comments Unknown Sex and Gender Information Value Date Recorded Sex Assigned at Not on file Legal Sex Female 5:22 AM DEHYDROGENATION OPERATOR HEAD Gender Identity Not on file Sexual Orientation Not on file documented as of this encounter Plan of Treatment Not on file documented as of this encounter Visit Diagnoses Not on filedocumented in this encounter Additional Health Concerns Infection Onset Date Last Indicated Resolved Time VRE Comment:Urine 10/30/13 Resolved 11/04/2013 11/04/2013 8 10:33 AM DEHYDROGENATION OPERATOR HEAD R/O COVID-19 12/25/2019 12/25/2019 12/26/2019 2:46 PM CDT R/O COVID-19 05/09/2020 05/09/2020 05/09/2020 12:1 7 PM DEHYDROGENATION OPERATOR HEAD documented as of this encounter Care Teams Corral Boss Relationship Specialty Start Date End Date Dara Tavera FNP [address] [place] [phone] PCP - General NURSE PRACTITIONER 10/13/18 documented as of this encounter
--- OUTSIDE RECORDS SUMMARY | 2025-05-08 18:45 | XMS_ITS | Encounter Summary ---
Author Organization [facility] Address [address] [place] [address] Care Team Providers Care Concession Stand Attendant Name Role Phone Dara Tavera AMANDEEP Primary Care Provider Encounter Details Date Type Department Care Team (Late st Contact Info) Description 01/15/2007 Emergency [facility] Emergency Department [address] [place] [address] Raji Reyes MD NO ADDRESS ON FILE Unspecified, Hemorrhage of Gastrointestinal Tract (Primary Dx) Social History Tobacco Use Types Packs/Day Years Used Date Smoking Tobacco: Never Assessed Comments Unknown Sex and Gender Information Value Date Recorded Sex Assigned at Not on file Legal Sex Female 5:22 AM COTTON HEADER Gender Identity Not on file Sexual [...] during normal , as reported by the detective homicide squad, are summarized as follows: Gestational Age Expected hCG Values (mIU/ml) 0.2-1 Weeks 5 - 50 1-2 Weeks 50 - 500 2-3 Weeks 100 - 5,000 3-4 Weeks 1,000 - 50,000 5-6 Weeks 10,000 - 100,000 6-8 Weeks 15,000 - 200,000 2-3 Months 10,000 - 100,000 01/15/2007 9:00 AM CDT Raij Reyes MD CHEMISTRY ORDERABLES Edited Performing Organization Address [facility] Phone Number INTERFACE SYSTEM Refer to clinic/hospital department * LIPASE (01/15/2007 9:00 AM CDT) [facility] LIPASE 27 6 - 51 U/L INTERFACE SYSTEM Comment: As of 05 the [facility] has changed testing methods. The new reference range is 6-51 The old referance range was 23-300 01/15/2007 9:00 AM CDT Raji Reyes MD CHEMISTRY ORDERABLES Edited Performing Organization Address [facility] Phone Number INTERFACE SYSTEM Refer to clinic/hospital department * (ABNORMAL) COMPREHENSIVE METABOLIC PANEL (01/15/2007 9:00 AM CDT) [facility] GLOBULIN (CALC) 2.8 2.4 - 3.9 [...] Resolved 11/04/2013 11/04/2013 8 10:33 AM COTTON HEADER R/O COVID-19 12/25/2019 12/25/2019 12/26/2019 2:46 PM CDT R/O COVID-19 05/09/2020 05/09/2020 05/09/2020 12:1 7 PM COTTON HEADER documented as of this encounter Care Teams Concession Stand Attendant Relationship Specialty Start Date End Date Dara Tavera FNP [address] [place] [phone] PCP - General NURSE PRACTITIONER 10/13/18 documented as of this encounter
[2025-05-08 19:05] VITALS: BP 123/65; PULSE 72; RESP 16; O2SAT 96
== END 2025-05-08 19:05 | disposition home or self-care (01) ==
PROVIDERS: Emergency Provider Emergency Medicine; PCP Registered Nurse
DX: R10.9 Unspecified abdominal pain (principal); J44.9 Chronic obstructive pulmonary disease, unspecified
CPT/HCPCS: 96372; 99284; J2270; J2405

== ENCOUNTER 2025-05-11 21:48 | Emergency (ER) | payer MEDICARE, MEDICAID, SELFPAY ==
--- NOTE | 2025-05-11 21:30 | XRR_ITS ---
PROCEDURE INFORMATION: Exam: XR Chest Exam date and time: 05/11/2025 9:52 PM Age: 59 years old Clinical indication: Chest pressure; Prior surgery; Surgery date: 6+ months; Surgery type: Gb; C/O chest pain TECHNIQUE: Imaging protocol: Radiologic exam of the chest. Views: 1 view. COMPARISON: CT lung screening [id number] 04/01/2025 8:01 AM FINDINGS: Lungs: Fine reticular opacities throughout both lungs are stable from prior. No acute airspace disease. Pleural spaces: No pleural effusion. No pneumothorax. Heart/Mediastinum: Cardiac silhouette is normal in size for technique. Bones/joints: Age appropriate. Gastrointestinal tract: Gas-filled loop of colon noted in the upper abdominal midline. XR/XR chest 1V portable [id number] IMPRESSION: 1. No acute pulmonary abnormality. Stable fine reticular opacities throughout both lungs. 2. Prominent gas-filled loop of colon noted in the upper abdominal midline.
--- NOTE | 2025-05-11 21:30 | ECG_ITS ---
[facility] Date: 2025[facility]11 Pat Name: Latesha Wilhelm Department: Room: Gender: Female Bulk Sealer: : 1965 Requested By: Shayla Jaquez Order Number: [id number] Alice MD: Kenan Sidhu M.D. Measurements Intervals [place] Rate: 78 P: 68 KS: 154 QRS: 65 QRSD: 93 T: 64 QT: 384 QTc: 438 Interpretive Statements SINUS RHYTHM Compared to ECG 12/15/2024 21:07:06 No significant changes Electronically Signed On 05-12-2025 10:40:50 WATER MANGLE TENDER by Kenan Sidhu M.D. [email or web address]
[2025-05-11 21:39] VITALS: BMI 29.0
[2025-05-11 21:42] VITALS: BP 158/91; PULSE 80; RESP 18; TEMP 36.7; O2SAT 95
--- OUTSIDE RECORDS SUMMARY | 2025-05-11 21:56 | XMS_ITS | Encounter Summary ---
Author Organization [facility] Address [address] [place] [address] Care Team Providers Care Interactive Digital Media Specialist Name Role Phone Dara Tavera Primary Care Provider Encounter Details Date Type Department Care Team (Latest Contact Info) Description 05/16/2005 Outpatient Historical [facility] Pain Management Procedures [address] [place] [address] Prasad Carpenter MD NO ADDRESS ON FILE DISORDERS OF SACRUM (Primary Dx) Social History Tobacco Use Types Packs/Day Years Used Date Smoking Tobacco: Never Assessed Comments Unknown Sex and Gender Information Value Date Recorded Sex Assigned at Not on file Legal Sex Female 5:22 AM PROCESS CONTROLS TECHNICIAN Gender Identity Not on file Sexual Orientation Not on file documented as of this encounter Plan of Treatment Not on file documented as of this encounter Visit Diagnoses Diagnosis Disorders of sacrum- Primary documented in this encounter Additional Health Concerns Infection Onset Date Last Indicated Resolved Time VRE Comment:Urine 10/30/13 Resolved 11/04/2013 11/04/2013 8 10:33 AM PROCESS CONTROLS TECHNICIAN R/O COVID-19 12/25/2019 12/25/2019 12/26/2019 2:46 PM CDT R/O COVID-19 05/09/2020 05/09/2020 05/09/2020 12:1 7 PM PROCESS CONTROLS TECHNICIAN documented as of this encounter Care Teams Interactive Digital Media Specialist Relationship Specialty Start Date End Date Dara Tavera FNP [address] [place] [address] PCP - General NURSE PRACTITIONER 10/13/18 documented as of this encounter
--- OUTSIDE RECORDS SUMMARY | 2025-05-11 21:56 | XMS_ITS | Encounter Summary ---
Author Organization [facility] Address [address] [place] [address] Care Team Providers Care Net Mobile Developer Name Role Phone Dara Tavera PROGRAM DIRECTOR AIR TALENT Primary Care Provider Encounter Details Date Type Department Care Team (Latest Contact Info) Description 11/05/2002 Outpatient [facility] [address] [place] [address] Raúl Osullivan MD [address] [place], [place] [id number] OTHER FUNCTIONAL DISORDER BLADDER (Primary Dx) Social History Tobacco Use Types Packs/Day Years Used Date Smoking Tobacco: Never Assessed Comments Unknown Sex and Gender Information Value Date Recorded Sex Assigned at Not on file Legal Sex Female 5:22 AM RANGE TECHNICIAN Gender Identity Not on file Sexual Orientation Not on file documented as of this encounter Plan of Treatment Not on file documented as of this encounter Visit Diagnoses Diagnosis Other functional disorder of bladder- Primary documented in this encounter Additional Health Concerns Infection Onset Date Last Indicated Resolved Time VRE Comment:Urine 10/30/13 Resolved 11/04/2013 11/04/2013 8 10:33 AM RANGE TECHNICIAN R/O COVID-19 12/25/2019 12/25/2019 12/26/2019 2:46 PM CDT R/O COVID-19 05/09/2020 05/09/2020 05/09/2020 12:1 7 PM RANGE TECHNICIAN documented as of this encounter Care Teams Net Mobile Developer Relationship Specialty Start Date End Date Dara Tavera FNP [address] [place] [phone] PCP - General NURSE PRACTITIONER 10/13/18 documented as of this encounter
--- OUTSIDE RECORDS SUMMARY | 2025-05-11 21:56 | XMS_ITS | Encounter Summary ---
Author Organization [facility] Address [address] [place] [address] Care Team Providers Care Eggs Inspector Name Role Phone Dara Tavera Primary Care Provider [phone] Encounter Details Date Type Department Care Team (Latest Contact Info) Description 12/01/2004 Outpatient Historical [facility] Medicine [place] [address] [facility] [address] [place] [address] Faiza Petersen MD NO ADDRESS ON FILE FEM PELV INFLAM DIS NOS (Primary Dx); ABDOMINAL PAIN UNSPEC SITE Social History Tobacco Use Types Packs/Day Years Used Date Smoking Tobacco: Never Assessed Comments Unknown Sex and Gender Information Value Date Recorded Sex Assigned at Not on file Legal Sex Female 5:22 AM COACH BUILDER Gender Identity Not on file Sexual [...] 10/30/13 Resolved 11/04/2013 11/04/2013 8 10:33 AM COACH BUILDER R/O COVID-19 12/25/2019 12/25/2019 12/26/2019 2:46 PM CDT R/O COVID-19 05/09/2020 05/09/2020 05/09/2020 12:1 7 PM COACH BUILDER documented as of this encounter Care Teams Eggs Inspector Relationship Specialty Start Date End Date Dara Tavera FNP [address] [place] [address] PCP - General NURSE PRACTITIONER 10/13/18 documented as of this encounter
--- OUTSIDE RECORDS SUMMARY | 2025-05-11 21:56 | XMS_ITS | Encounter Summary ---
Author Organization [facility] Address [address] [place] [address] Care Team Providers Care Medical Lab Technician Name Role Phone Dara Tavera Primary Care Provider Encounter Details Date Type Department Care Team (Latest Contact Info) Description 05/12/2004 Outpatient Historical [facility] Ambulance [address] [place] [address] AMBULANCE, [facility] CHEST PAIN NOS (Primary Dx) Social History Tobacco Use Types Packs/Day Years Used Date Smoking Tobacco: Never Assessed Comments Unknown Sex and Gender Information Value Date Recorded Sex Assigned at Not on file Legal Sex Female 5:22 AM WATER PUMP INSTALLER Gender Identity Not on file Sexual Orientation Not on file documented as of this encounter Plan of Treatment Not on file documented as of this encounter Visit Diagnoses Diagnosis Chest pain, unspecified- Primary documented in this encounter Additional Health Concerns Infection Onset Date Last Indicated Resolved Time VRE Comment:Urine 10/30/13 Resolved 11/04/2013 11/04/2013 8 10:33 AM WATER PUMP INSTALLER R/O COVID-19 12/25/2019 12/25/2019 12/26/2019 2:46 PM CDT R/O COVID-19 05/09/2020 05/09/2020 05/09/2020 12:1 7 PM WATER PUMP INSTALLER documented as of this encounter Care Teams Medical Lab Technician Relationship Specialty Start Date End Date Dara Tavera FNP [address] [place] [phone] PCP - General NURSE PRACTITIONER 10/13/18 documented as of this encounter
--- OUTSIDE RECORDS SUMMARY | 2025-05-11 21:56 | XMS_ITS | Encounter Summary ---
Author Organization [facility] Address [address] [place] [address] Care Team Providers Care Orthopedic Dentist Name Role Phone Dara Tavera AMANDEEP Primary Care Provider Encounter Details Date Type Department Care Team (Latest Contact Info) Description 12/08/2003 Inpatient Historical [facility] [address] [place] [address] Robel Samuel MD [address] [place] [address] DRUG DEPRESSIVE SYNDROME (CMS/HCC) (Primary Dx) Social History Tobacco Use Types Packs/Day Years Used Date Smoking Tobacco: Never Assessed Comments Unknown Sex and Gender Information Value Date Recorded Sex Assigned at Not on file Legal Sex Female 5:22 AM SENIOR NUCLEAR MEDICINE TECHNOLOGIST Gender Identity Not on file Sexual Orientation Not on file documented as of this encounter Plan of Treatment Not on file documented as of this encounter Visit Diagnoses Diagnosis 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/HCC)- Primary Drug-induced mood disorder documented in this encounter Additional Health Concerns Infection Onset Date Last Indicated Resolved Time VRE Comment:Urine 10/30/13 Resolved 11/04/2013 11/04/2013 8 10:33 AM SENIOR NUCLEAR MEDICINE TECHNOLOGIST R/O COVID-19 12/25/2019 12/25/2019 12/26/2019 2:46 PM CDT R/O COVID-19 05/09/2020 05/09/2020 05/09/2020 12:1 7 PM SENIOR NUCLEAR MEDICINE TECHNOLOGIST documented as of this encounter Care Teams Orthopedic Dentist Relationship Specialty Start Date End Date Dara Tavera FNP [address] [place] [phone] PCP - General NURSE PRACTITIONER 10/13/18 documented as of this encounter
--- OUTSIDE RECORDS SUMMARY | 2025-05-11 21:56 | XMS_ITS | Encounter Summary ---
Author Organization [facility] Address [address] [place] [address] Care Team Providers Care Equal Opportunity Director Name Role Phone Dara Tavera Primary Care Provider Encounter Details Date Type Department Care Team (Late st Contact Info) Description 05/30/2005 [facility] [address] [place] [address] Social History Tobacco Use Types Packs/Day Years Used Date Smoking Tobacco: Never Assessed Comments Unknown Sex and Gender Information Value Date Recorded Sex Assigned at Not on file Legal Sex Female 5:22 AM TICKETING CLERK Gender Identity Not on file Sexual Orientation Not on file documented as of this encounter Plan of Treatment Not on file documented as of this encounter Visit Diagnoses Not on filedocumented in this encounter Additional Health Concerns Infection Onset Date Last Indicated Resolved Time VRE Comment:Urine 10/30/13 Resolved 11/04/2013 11/04/2013 8 10:33 AM TICKETING CLERK R/O COVID-19 12/25/2019 12/25/2019 12/26/2019 2:46 PM CDT R/O COVID-19 05/09/2020 05/09/2020 05/09/2020 12:1 7 PM TICKETING CLERK documented as of this encounter Care Teams Equal Opportunity Director Relationship Specialty Start Date End Date Dara Tavera FNP [address] [place] [phone] PCP - General NURSE PRACTITIONER 10/13/18 documented as of this encounter
--- OUTSIDE RECORDS SUMMARY | 2025-05-11 21:56 | XMS_ITS | Encounter Summary ---
Author Organization [facility] Address [address] [place] [address] Care Team Providers Care Trick Rodeo Rider Name Role Phone Dara Tavera Primary Care Provider Encounter Details Date Type Department Care Team (Latest Contact Info) Description 07/24/2004 Outpatient Historical [facility] Ambulance [address] [place] [address] AMBULANCE, [facility] CONVULSIONS, OTHER (CMS/HCC) (Primary Dx) Social History Tobacco Use Types Packs/Day Years Used Date Smoking Tobacco: Never Assessed Comments Unknown Sex and Gender Information Value Date Recorded Sex Assigned at Not on file Legal Sex Female 5:22 AM STAMPING OPERATOR Gender Identity Not on file Sexual Orientation Not on file documented as of this encounter Plan of Treatment Not on file documented as of this encounter Visit Diagnoses Diagnosis Other convulsions- Primary documented in this encounter Additional Health Concerns Infection Onset Date Last Indicated Resolved Time VRE Comment:Urine 10/30/13 Resolved 11/04/2013 11/04/2013 8 10:33 AM STAMPING OPERATOR R/O COVID-19 12/25/2019 12/25/2019 12/26/2019 2:46 PM CDT R/O COVID-19 05/09/2020 05/09/2020 05/09/2020 12:1 7 PM STAMPING OPERATOR documented as of this encounter Care Teams Trick Rodeo Rider Relationship Specialty Start Date End Date Dara Tavera FNP [address] [place] [phone] PCP - General NURSE PRACTITIONER 10/13/18 documented as of this encounter
--- OUTSIDE RECORDS SUMMARY | 2025-05-11 21:56 | XMS_ITS | Encounter Summary ---
Author Organization [facility] Address [address] [place] [address] Care Team Providers Care Breakdown Man Name Role Phone Dara Tavera Primary Care Provider [phone] Encounter Details Date Type Department Care Team (Latest Contact Info) Description 11/08/2002 Outpatient Historical [facility] Operating Room [address] [place] [address] Dmitri Vega MD [address] [place] [address] BENIGN NEOPLASM TONGUE (Primary Dx) Social History Tobacco Use Types Packs/Day Years Used Date Smoking Tobacco: Never Assessed Comments Unknown Sex and Gender Information Value Date Recorded Sex Assigned at Not on file Legal Sex Female 5:22 AM PYTHON PROGRAMMER Gender Identity Not on file Sexual Orientation Not on file documented as of this encounter Plan of Treatment Not on file documented as of this encounter Visit Diagnoses Diagnosis Benign neoplasm of tongue- Primary documented in this encounter Additional Health Concerns Infection Onset Date Last Indicated Resolved Time VRE Comment:Urine 10/30/13 Resolved 11/04/2013 11/04/2013 8 10:33 AM PYTHON PROGRAMMER R/O COVID-19 12/25/2019 12/25/2019 12/26/2019 2:46 PM CDT R/O COVID-19 05/09/2020 05/09/2020 05/09/2020 12:1 7 PM PYTHON PROGRAMMER documented as of this encounter Care Teams Breakdown Man Relationship Specialty Start Date End Date Dara Tavera FNP [address] [place] [phone] PCP - General NURSE PRACTITIONER 10/13/18 documented as of this encounter
--- OUTSIDE RECORDS SUMMARY | 2025-05-11 21:56 | XMS_ITS | Encounter Summary ---
Author Organization [facility] Address [address] [place] [address] Care Team Providers Care Full Stack Developer Name Role Phone Dara Tavera Primary Care Provider [phone] Encounter Details Date Type Department Care Team (Latest Contact Info) Description 02/24/2003 Outpatient Historical [facility] [address] [place] [address] Oniel Upton MD NO ADDRESS ON FILE SCHIZOAFFECTIVE-UNSP EC ([facility]/HCC) (Primary Dx) Social History Tobacco Use Types Packs/Day Years Used Date Smoking Tobacco: Never Assessed Comments Unknown Sex and Gender Information Value Date Recorded Sex Assigned at Not on file Legal Sex Female 5:22 AM TELEPHONE ORDER CLERK ROOM SERVICE Gender Identity Not on file Sexual Orientation Not on file documented as of this encounter Plan of Treatment Not on file documented as of this encounter Visit Diagnoses Diagnosis Schizoaffective disorder, unspecified condition ([facility]/HCC)- Primary Schizoaffective disorder, unspecified condition documented in this encounter Additional Health Concerns Infection Onset Date Last Indicated Resolved Time VRE Comment:Urine 10/30/13 Resolved 11/04/2013 11/04/2013 8 10:33 AM TELEPHONE ORDER CLERK ROOM SERVICE R/O COVID-19 12/25/2019 12/25/2019 12/26/2019 2:46 PM CDT R/O COVID-19 05/09/2020 05/09/2020 05/09/2020 12:1 7 PM TELEPHONE ORDER CLERK ROOM SERVICE documented as of this encounter Care Teams Full Stack Developer Relationship Specialty Start Date End Date Dara Tavera FNP [address] [place] [phone] PCP - General NURSE PRACTITIONER 10/13/18 documented as of this encounter
--- OUTSIDE RECORDS SUMMARY | 2025-05-11 21:56 | XMS_ITS | Encounter Summary ---
Author Organization [facility] Address [address] [place] [address] Care Team Providers Care Family Psychologist Name Role Phone Dara Tavera Primary Care Provider Encounter Details Date Type Department Care Team (Latest Contact Info) Description 12/07/2003 Outpatient Historical [facility] SCHIZOPHRENIA NOS-UNSPEC (CMS/HCC) (Primary Dx) Social History Tobacco Use Types Packs/Day Years Used Date Smoking Tobacco: Never Assessed Comments Unknown Sex and Gender Information Value Date Recorded Sex Assigned at Not on file Legal Sex Female 5:22 AM SHOULDER BONER Gender Identity Not on file Sexual Orientation Not on file documented as of this encounter Plan of Treatment Not on file documented as of this encounter Visit Diagnoses Diagnosis Unspecified schizophrenia, unspecified condition (CMS/HCC)- Primary Unspecified schizophrenia, unspecified condition documented in this encounter Additional Health Concerns Infection Onset Date Last Indicated Resolved Time VRE Comment:Urine 10/30/13 Resolved 11/04/2013 11/04/2013 8 10:33 AM SHOULDER BONER R/O COVID-19 12/25/2019 12/25/2019 12/26/2019 2:46 PM CDT R/O COVID-19 05/09/2020 05/09/2020 05/09/2020 12:1 7 PM SHOULDER BONER documented as of this encounter Care Teams Family Psychologist Relationship Specialty Start Date End Date Dara Tavera FNP [address] [place] [phone] PCP - General NURSE PRACTITIONER 10/13/18 documented as of this encounter
--- OUTSIDE RECORDS SUMMARY | 2025-05-11 21:56 | XMS_ITS | Encounter Summary ---
Author Organization [facility] Address [address] [facility] Attn: [place] [address] Care Team Providers Care Public Interviewer Name Role Phone Dara Tavera Primary Care Provider [phone] Encounter Details Date Type Department Care Team ([facility] Contact Info) Description 02/13/2003 Inpatient Historical Oniel Upton MD NO ADDRESS ON FILE ACUTE SCHIZOPHRENIA-CHR (CMS/HCC) (Primary Dx) Social History Tobacco Use Types Packs/Day Years Used Date Smoking Tobacco: Never Assessed Comments Unknown Sex and Gender Information Value Date Recorded Sex Assigned at Not on file Legal Sex Female 5:22 AM FLAT KNITTER Gender Identity Not on file Sexual Orientation Not on file documented as of this encounter Plan of Treatment Not on file documented as of this encounter Visit Diagnoses Diagnosis Schizophreniform disorder, chronic condition (CMS/HCC)- Primary Schizophreniform disorder, chronic condition documented in this encounter Additional Health Concerns Infection Onset Date Last Indicated Resolved Time VRE Comment:Urine 10/30/13 Resolved 11/04/2013 11/04/2013 8 10:33 AM FLAT KNITTER R/O COVID-19 12/25/2019 12/25/2019 12/26/2019 2:46 PM CDT R/O COVID-19 05/09/2020 05/09/2020 05/09/2020 12:1 7 PM FLAT KNITTER documented as of this encounter Care Teams Public Interviewer Relationship Specialty Start Date End Date Dara Tavera FNP [address] [place] [phone] PCP - General NURSE PRACTITIONER 10/13/18 documented as of this encounter
--- OUTSIDE RECORDS SUMMARY | 2025-05-11 21:56 | XMS_ITS | Encounter Summary ---
Author Organization [facility] Address [address] [place] [address] Care Team Providers Care Costume Design Teacher Name Role Phone Dara Tavera Primary Care Provider Encounter Details Date Type Department Care Team (Latest Contact Info) Description 02/24/2005 Outpatient Historical [facility] [address] [place] [address] [facility] [address] [place] [address] Prasad Carpenter MD NO ADDRESS ON FILE LUMB/LUMBOSAC DISC DEGEN (Primary Dx) Social History Tobacco Use Types Packs/Day Years Used Date Smoking Tobacco: Never Assessed Comments Unknown Sex and Gender Information Value Date Recorded Sex Assigned at Not on file Legal Sex Female 5:22 AM METHODS SPECIALIST ENGINEER Gender Identity Not on file Sexual Orientation Not on file documented as of this encounter Plan of Treatment Not on file documented as of this encounter Visit Diagnoses Diagnosis Degeneration of lumbar or lumbosacral intervertebral disc- Primary documented in this encounter Additional Health Concerns Infection Onset Date Last Indicated Resolved Time VRE Comment:Urine 10/30/13 Resolved 11/04/2013 11/04/2013 8 10:33 AM METHODS SPECIALIST ENGINEER R/O COVID-19 12/25/2019 12/25/2019 12/26/2019 2:46 PM CDT R/O COVID-19 05/09/2020 05/09/2020 05/09/2020 12:1 7 PM METHODS SPECIALIST ENGINEER documented as of this encounter Care Teams Costume Design Teacher Relationship Specialty Start Date End Date Dara Tavera FNP [address] [place] [phone] PCP - General NURSE PRACTITIONER 10/13/18 documented as of this encounter
--- OUTSIDE RECORDS SUMMARY | 2025-05-11 21:56 | XMS_ITS | Encounter Summary ---
Author Organization [facility] Address [address] [place] [address] Care Team Providers Care Photovoltaic Installation Technician Name Role Phone Dara Tavera Primary Care Provider [phone] Encounter Details Date Type Department Care Team (Latest Contact Info) Description 07/24/2003 Outpatient Historical [facility], [facility] (Primary Dx) Social History Tobacco Use Types Packs/Day Years Used Date Smoking Tobacco: Never Assessed Comments Unknown Sex and Gender Information Value Date Recorded Sex Assigned at Not on file Legal Sex Female 5:22 AM PRIOR AUTHORIZATION NURSE Gender Identity Not on file Sexual [...] 10/30/13 Resolved 11/04/2013 11/04/2013 8 10:33 AM PRIOR AUTHORIZATION NURSE R/O COVID-19 12/25/2019 12/25/2019 12/26/2019 2:46 PM CDT R/O COVID-19 05/09/2020 05/09/2020 05/09/2020 12:1 7 PM PRIOR AUTHORIZATION NURSE documented as of this encounter Care Teams Photovoltaic Installation Technician Relationship Specialty Start Date End Date Dara Tavera FNP [address] [place] [phone] PCP - General NURSE PRACTITIONER 10/13/18 documented as of this encounter
--- OUTSIDE RECORDS SUMMARY | 2025-05-11 21:56 | XMS_ITS | Encounter Summary ---
Author Organization [facility] Address [address] [place] [address] Care Team Providers Care Special Agent Secret Service Name Role Phone Dara Tavera Primary Care Provider [phone] Encounter Details Date Type Department Care Team (Latest Contact Info) Description 01/25/2005 Outpatient [facility] Oral and Maxillo Surgery[address] [place] [address] Raleigh Bagley, PhD NO ADDRESS ON FILE Tooth eruption disturb (Primary Dx) Social History Tobacco Use Types Packs/Day Years Used Date Smoking Tobacco: Never Assessed Comments Unknown Sex and Gender Information Value Date Recorded Sex Assigned at Not on file Legal Sex Female 5:22 AM MOBILE NURSE Gender Identity Not on file Sexual Orientation Not on file documented as of this encounter Plan of Treatment Not on file documented as of this encounter Visit Diagnoses Diagnosis Tooth eruption disturb- Primary Disturbances in tooth eruption documented in this encounter Additional Health Concerns Infection Onset Date Last Indicated Resolved Time VRE Comment:Urine 10/30/13 Resolved 11/04/2013 11/04/2013 8 10:33 AM MOBILE NURSE R/O COVID-19 12/25/2019 12/25/2019 12/26/2019 2:46 PM CDT R/O COVID-19 05/09/2020 05/09/2020 05/09/2020 12:1 7 PM MOBILE NURSE documented as of this encounter Care Teams Special Agent Secret Service Relationship Specialty Start Date End Date Dara Tavera FNP [address] [place] [address] PCP - General NURSE PRACTITIONER 10/13/18 documented as of this encounter
--- OUTSIDE RECORDS SUMMARY | 2025-05-11 21:56 | XMS_ITS | Encounter Summary ---
Author Organization [facility] Address [address] [place] [address] Care Team Providers Care Foxing Closer Name Role Phone Dara Tavera Primary Care Provider [phone] Encounter Details Date Type Department Care Team (Latest Contact Info) Description 12/09/2004 Outpatient Historical [facility] Family Medicine [place] [address] [facility] [address] [place] [address] Faiza Petersen MD NO ADDRESS ON FILE URIN TRACT INFECTION NOS (Primary Dx); ABDOMINAL PAIN UNSPEC SITE; ABDOMINAL TENDERNESS UNSP SITE Social History Tobacco Use Types Packs/Day Years Used Date Smoking Tobacco: Never Assessed Comments Unknown Sex and Gender Information Value Date Recorded Sex Assigned at Not on file Legal Sex Female 5:22 AM GROUND CREWMAN AIRCRAFT SUPPORT Gender Identity Not on file Sexual Orientation [...] 10/30/13 Resolved 11/04/2013 11/04/2013 8 10:33 AM GROUND CREWMAN AIRCRAFT SUPPORT R/O COVID-19 12/25/2019 12/25/2019 12/26/2019 2:46 PM CDT R/O COVID-19 05/09/2020 05/09/2020 05/09/2020 12:1 7 PM GROUND CREWMAN AIRCRAFT SUPPORT documented as of this encounter Care Teams Foxing Closer Relationship Specialty Start Date End Date Dara Tavera FNP [address] [place] [address] PCP - General NURSE PRACTITIONER 10/13/18 documented as of this encounter
--- OUTSIDE RECORDS SUMMARY | 2025-05-11 21:56 | XMS_ITS | Encounter Summary ---
Author Organization [facility] Address [address] [place] [address] Care Team Providers Care Hydrogen Cell Tender Name Role Phone Dara Tavera [...] on file Legal Sex Female 5:22 AM ASTRONOMY TEACHER Gender Identity Not on file Sexual Orientation Not on file documented as of this encounter Plan of Treatment Not on file documented as of this encounter Visit Diagnoses Not on filedocumented in this encounter Additional Health Concerns Infection Onset Date Last Indicated Resolved Time VRE Comment:Urine 10/30/13 Resolved 11/04/2013 11/04/2013 8 10:33 AM ASTRONOMY TEACHER R/O COVID-19 12/25/2019 12/25/2019 12/26/2019 2:46 PM CDT R/O COVID-19 05/09/2020 05/09/2020 05/09/2020 12:1 7 PM ASTRONOMY TEACHER documented as of this encounter Care Teams Hydrogen Cell Tender Relationship Specialty Start Date End Date Dara Tavera FNP [address] [place] [address] PCP - General NURSE PRACTITIONER 10/13/18 documented as of this encounter
--- OUTSIDE RECORDS SUMMARY | 2025-05-11 21:56 | XMS_ITS | Encounter Summary ---
Author Organization [facility] Address [address] [place] [address] Care Team Providers Care Hydrotechnical Specialist Name Role Phone Dara Tavera Primary Care Provider Encounter Details Date Type Department Care Team (Late st Contact Info) Description 12/05/2003 Outpatient Historical [facility] [address] [place] [address] Hood Kerr Jr., MD [address] [place] [address] Social History Tobacco Use Types Packs/Day Years Used Date Smoking Tobacco: Never Assessed Comments Unknown Sex and Gender Information Value Date Recorded Sex Assigned at Not on file Legal Sex Female 5:22 AM OUTSIDE MAINTENANCE WORKER Gender Identity Not on file Sexual Orientation Not on file documented as of this encounter Plan of Treatment Not on file documented as of this encounter Visit Diagnoses Not on filedocumented in this encounter Additional Health Concerns Infection Onset Date Last Indicated Resolved Time VRE Comment:Urine 10/30/13 Resolved 11/04/2013 11/04/2013 8 10:33 AM OUTSIDE MAINTENANCE WORKER R/O COVID-19 12/25/2019 12/25/2019 12/26/2019 2:46 PM CDT R/O COVID-19 05/09/2020 05/09/2020 05/09/2020 12:1 7 PM OUTSIDE MAINTENANCE WORKER documented as of this encounter Care Teams Hydrotechnical Specialist Relationship Specialty Start Date End Date Dara Tavera FNP [address] [place] [phone] PCP - General NURSE PRACTITIONER 10/13/18 documented as of this encounter
--- OUTSIDE RECORDS SUMMARY | 2025-05-11 21:56 | XMS_ITS | Encounter Summary ---
Author Organization [facility] Address [address] [place] [address] Care Team Providers Care Bait Painter Name Role Phone Dara Tavera Primary Care Provider Encounter Details Date Type Department Care Team (Latest Contact Info) Description 11/25/2004 Outpatient Historical [facility] [address] [place] [address] AMBULANCE, [facility] NONPSYCHOTIC MENTAL DISORDER NOS (Primary Dx) Social History Tobacco Use Types Packs/Day Years Used Date Smoking Tobacco: Never Assessed Comments Unknown Sex and Gender Information Value Date Recorded Sex Assigned at Not on file Legal Sex Female 5:22 AM TOOL ADJUSTER Gender Identity Not on file Sexual Orientation Not on file documented as of this encounter Plan of Treatment Not on file documented as of this encounter Visit Diagnoses Diagnosis Unspecified nonpsychotic mental disorder- Primary documented in this encounter Additional Health Concerns Infection Onset Date Last Indicated Resolved Time VRE Comment:Urine 10/30/13 Resolved 11/04/2013 11/04/2013 8 10:33 AM TOOL ADJUSTER R/O COVID-19 12/25/2019 12/25/2019 12/26/2019 2:46 PM CDT R/O COVID-19 05/09/2020 05/09/2020 05/09/2020 12:1 7 PM TOOL ADJUSTER documented as of this encounter Care Teams Bait Painter Relationship Specialty Start Date End Date Dara Tavera FNP [address] [place] [address] PCP - General NURSE PRACTITIONER 10/13/18 documented as of this encounter
--- OUTSIDE RECORDS SUMMARY | 2025-05-11 21:56 | XMS_ITS | Encounter Summary ---
Author Organization [facility] Address [address] [place] [address] Care Team Providers Care High Scaler Name Role Phone Dara Tavera Primary Care Provider [phone] Encounter Details Date Type Department Care Team (Late st Contact Info) Description 01/04/2004 Outpatient Historical [facility] Behavioral Clinical Services [address] [place] [address] Hood Kerr Jr., MD [address] [place] [address] Social History Tobacco Use Types Packs/Day Years Used Date Smoking Tobacco: Never Assessed Comments Unknown Sex and Gender Information Value Date Recorded Sex Assigned at Not on file Legal Sex Female 5:22 AM STEM LEAD FORMER Gender Identity Not on file Sexual Orientation Not on file documented as of this encounter Plan of Treatment Not on file documented as of this encounter Visit Diagnoses Not on filedocumented in this encounter Additional Health Concerns Infection Onset Date Last Indicated Resolved Time VRE Comment:Urine 10/30/13 Resolved 11/04/2013 11/04/2013 8 10:33 AM STEM LEAD FORMER R/O COVID-19 12/25/2019 12/25/2019 12/26/2019 2:46 PM CDT R/O COVID-19 05/09/2020 05/09/2020 05/09/2020 12:1 7 PM STEM LEAD FORMER documented as of this encounter Care Teams High Scaler Relationship Specialty Start Date End Date Dara Tavera FNP [address] [place] [phone] PCP - General NURSE PRACTITIONER 10/13/18 documented as of this encounter
--- OUTSIDE RECORDS SUMMARY | 2025-05-11 21:56 | XMS_ITS | Encounter Summary ---
Author Organization [facility] Address [address] [place] [address] Care Team Providers Care Senior Insight Manager International Name Role Phone Dara Tavera [facility] Primary Care Provider Encounter Details Date Type Department Care Team (Latest Contact Info) Description 04/28/2005 Outpatient Historical [facility] [place] [address] [place] [address] Krissy Pickard FNP [address] [place], [place] [address] [address] [place] [address] LUMBAGO (Primary Dx); LUMBOSACRAL NEURITIS NOS; Enthesopathy of hip Social History Tobacco Use Types Packs/Day Years Used Date Smoking Tobacco: Never Assessed Comments Unknown Sex and Gender Information Value Date Recorded Sex Assigned at Not on file Legal Sex Female 5:22 AM PEER SPECIALIST Gender Identity Not on file Sexual [...] 10/30/13 Resolved 11/04/2013 11/04/2013 8 10:33 AM PEER SPECIALIST R/O COVID-19 12/25/2019 12/25/2019 12/26/2019 2:46 PM CDT R/O COVID-19 05/09/2020 05/09/2020 05/09/2020 12:1 7 PM PEER SPECIALIST documented as of this encounter Care Teams Senior Insight Manager International Relationship Specialty Start Date End Date Dara Tavera FNP [address] [place] [address] PCP - General NURSE PRACTITIONER 10/13/18 documented as of this encounter
--- OUTSIDE RECORDS SUMMARY | 2025-05-11 21:56 | XMS_ITS | Encounter Summary ---
Author Organization [facility] Address [address] [place] [address] Care Team Providers Care Shake Maker Name Role Phone Dara Tavera Primary Care Provider Encounter Details Date Type Department Care Team (Latest Contact Info) Description 12/01/2003 Outpatient Historical [facility] Urology- [address]tr[address], 3[address] [place] [address] Hossein Blair MD NO ADDRESS ON FILE FEMALE STRESS INCONTINENCE (Primary Dx); ENURESIS NOS Social History Tobacco Use Types Packs/Day Years Used Date Smoking Tobacco: Never Assessed Comments Unknown Sex and Gender Information Value Date Recorded Sex Assigned at Not on file Legal Sex Female 5:22 AM TRUCK BODY BUILDER Gender Identity Not on file Sexual Orientation Not on file documented as of this encounter Plan of Treatment Not on file documented as of this encounter Visit Diagnoses Diagnosis Female stress incontinence- Primary Unspecified urinary incontinence documented in this encounter Additional Health Concerns Infection Onset Date Last Indicated Resolved Time VRE Comment:Urine 10/30/13 Resolved 11/04/2013 11/04/2013 8 10:33 AM TRUCK BODY BUILDER R/O COVID-19 12/25/2019 12/25/2019 12/26/2019 2:46 PM CDT R/O COVID-19 05/09/2020 05/09/2020 05/09/2020 12:1 7 PM TRUCK BODY BUILDER documented as of this encounter Care Teams Shake Maker Relationship Specialty Start Date End Date Dara Tavera FNP [address] [place] [address] PCP - General NURSE PRACTITIONER 10/13/18 documented as of this encounter
--- OUTSIDE RECORDS SUMMARY | 2025-05-11 21:56 | XMS_ITS | Encounter Summary ---
Author Organization [facility] Address [address] [place] [address] Care Team Providers Care Patrol Lady Name Role Phone Dara Tavera Primary Care Provider Encounter Details Date Type Department Care Team (Latest Contact Info) Description 04/28/2005 Outpatient Historical [facility] [address] [place] [address] [place] [address] Krissy Pickard FNP [address] [facility] [address] [place] [address] ENTHESOPATHY OF HIP (Primary Dx) Social History Tobacco Use Types Packs/Day Years Used Date Smoking Tobacco: Never Assessed Comments Unknown Sex and Gender Information Value Date Recorded Sex Assigned at Not on file Legal Sex Female 5:22 AM BRAZER INDUCTION Gender Identity Not on file Sexual Orientation Not on file documented as of this encounter Plan of Treatment Not on file documented as of this encounter Visit Diagnoses Diagnosis Enthesopathy of hip region- Primary documented in this encounter Additional Health Concerns Infection Onset Date Last Indicated Resolved Time VRE Comment:Urine 10/30/13 Resolved 11/04/2013 11/04/2013 8 10:33 AM BRAZER INDUCTION R/O COVID-19 12/25/2019 12/25/2019 12/26/2019 2:46 PM CDT R/O COVID-19 05/09/2020 05/09/2020 05/09/2020 12:1 7 PM BRAZER INDUCTION documented as of this encounter Care Teams Patrol Lady Relationship Specialty Start Date End Date Dara Tavera FNP [address] [place] [phone] PCP - General NURSE PRACTITIONER 10/13/18 documented as of this encounter
--- OUTSIDE RECORDS SUMMARY | 2025-05-11 21:56 | XMS_ITS | Encounter Summary ---
Author Organization [facility] Address [address] [place] [address] Care Team Providers Care Pattern Layout Worker Name Role Phone Dara Tavera Primary Care Provider Encounter Details Date Type Department Care Team (Late st Contact Info) Description 02/22/2005 Outpatient Historical [facility] [place] [address] [facility] [address] [place] [address] Social History Tobacco Use Types Packs/Day Years Used Date Smoking Tobacco: Never Assessed Comments Unknown Sex and Gender Information Value Date Recorded Sex Assigned at Not on file Legal Sex Female 5:22 AM STAMPER BLOCKER Gender Identity Not on file Sexual Orientation Not on file documented as of this encounter Plan of Treatment Not on file documented as of this encounter Visit Diagnoses Not on filedocumented in this encounter Additional Health Concerns Infection Onset Date Last Indicated Resolved Time VRE Comment:Urine 10/30/13 Resolved 11/04/2013 11/04/2013 8 10:33 AM STAMPER BLOCKER R/O COVID-19 12/25/2019 12/25/2019 12/26/2019 2:46 PM CDT R/O COVID-19 05/09/2020 05/09/2020 05/09/2020 12:1 7 PM STAMPER BLOCKER documented as of this encounter Care Teams Pattern Layout Worker Relationship Specialty Start Date End Date Dara Tavera FNP [address] [place] [address] PCP - General NURSE PRACTITIONER 10/13/18 documented as of this encounter
--- OUTSIDE RECORDS SUMMARY | 2025-05-11 21:56 | XMS_ITS | Encounter Summary ---
Author Organization [facility] Address [address] [place] [address] Care Team Providers Care Importer Or Exporter Name Role Phone Dara Tavera Primary Care Provider Encounter Details Date Type Department Care Team (Latest Contact Info) Description 03/21/2005 Outpatient Historical [facility] [address] [place] [address] AMBULANCE, [facility] DEPRESSIVE DISORDER NEC (Primary Dx) Social History Tobacco Use Types Packs/Day Years Used Date Smoking Tobacco: Never Assessed Comments Unknown Sex and Gender Information Value Date Recorded Sex Assigned at Not on file Legal Sex Female 5:22 AM RIVET HEATER Gender Identity Not on file Sexual Orientation Not on file documented as of this encounter Plan of Treatment Not on file documented as of this encounter Visit Diagnoses Diagnosis Depressive disorder, not elsewhere classified- Primary documented in this encounter Additional Health Concerns Infection Onset Date Last Indicated Resolved Time VRE Comment:Urine 10/30/13 Resolved 11/04/2013 11/04/2013 8 10:33 AM RIVET HEATER R/O COVID-19 12/25/2019 12/25/2019 12/26/2019 2:46 PM CDT R/O COVID-19 05/09/2020 05/09/2020 05/09/2020 12:1 7 PM RIVET HEATER documented as of this encounter Care Teams Importer Or Exporter Relationship Specialty Start Date End Date Dara Tavera FNP [address] [place] [address] PCP - General NURSE PRACTITIONER 10/13/18 documented as of this encounter
--- OUTSIDE RECORDS SUMMARY | 2025-05-11 21:56 | XMS_ITS | Encounter Summary ---
Author Organization [facility] Address [address] [place] [address] Care Team Providers Care Garden Machinery Mechanic Name Role Phone Dara Tavera Primary Care Provider Encounter Details Date Type Department Care Team (Latest Contact Info) Description 07/24/2004 Outpatient Historical [facility] [address] [place] [address] AMBULANCE, [facility] OTHER ALTERATION OF CONSCIOUSNESS (Primary Dx) Social History Tobacco Use Types Packs/Day Years Used Date Smoking Tobacco: Never Assessed Comments Unknown Sex and Gender Information Value Date Recorded Sex Assigned at Not on file Legal Sex Female 5:22 AM RECORD LABEL INTERN Gender Identity Not on file Sexual Orientation Not on file documented as of this encounter Plan of Treatment Not on file documented as of this encounter Visit Diagnoses Diagnosis Other alteration of consciousness- Primary documented in this encounter Additional Health Concerns Infection Onset Date Last Indicated Resolved Time VRE Comment:Urine 10/30/13 Resolved 11/04/2013 11/04/2013 8 10:33 AM RECORD LABEL INTERN R/O COVID-19 12/25/2019 12/25/2019 12/26/2019 2:46 PM CDT R/O COVID-19 05/09/2020 05/09/2020 05/09/2020 12:1 7 PM RECORD LABEL INTERN documented as of this encounter Care Teams Garden Machinery Mechanic Relationship Specialty Start Date End Date Dara Tavera FNP [address] [place] [phone] PCP - General NURSE PRACTITIONER 10/13/18 documented as of this encounter
--- OUTSIDE RECORDS SUMMARY | 2025-05-11 21:56 | XMS_ITS | Encounter Summary ---
Author Organization [facility] Address [address] [place] [address] Care Team Providers Care Market Research Coordinator Name Role Phone Dara Tavera Primary Care Provider Encounter Details Date Type Department Care Team (Latest Contact Info) Description 01/14/[address] [facility] [address] [place] [address] Faiza Petersen MD NO ADDRESS ON FILE LUMBAGO (Primary Dx); NEURALGIA/NEURITIS NOS Social History Tobacco Use Types Packs/Day Years Used Date Smoking Tobacco: Never Assessed Comments Unknown Sex and Gender Information Value Date Recorded Sex Assigned at Not on file Legal Sex Female 5:22 AM PANEL MACHINE TENDER Gender Identity Not on file Sexual Orientation Not on file documented as of this encounter Plan of Treatment Not on file documented as of this encounter Visit Diagnoses Diagnosis Lumbago- Primary Neuralgia, neuritis, and radiculitis, unspecified documented in this encounter Additional Health Concerns Infection Onset Date Last Indicated Resolved Time VRE Comment:Urine 10/30/13 Resolved 11/04/2013 11/04/2013 8 10:33 AM PANEL MACHINE TENDER R/O COVID-19 12/25/2019 12/25/2019 12/26/2019 2:46 PM CDT R/O COVID-19 05/09/2020 05/09/2020 05/09/2020 12:1 7 PM PANEL MACHINE TENDER documented as of this encounter Care Teams Market Research Coordinator Relationship Specialty Start Date End Date Dara Tavera FNP [address] [place] [phone] PCP - General NURSE PRACTITIONER 10/13/18 documented as of this encounter
--- OUTSIDE RECORDS SUMMARY | 2025-05-11 21:56 | XMS_ITS | Encounter Summary ---
Author Organization [facility] Address [address] [place] [address] Care Team Providers Care Research Physicist Name Role Phone Dara Tavera Primary Care Provider Encounter Details Date Type Department Care Team (Latest Contact Info) Description 05/16/2005 Outpatient Historical [facility]- [place] [address] [place] [address] Prasad Carpenter MD NO ADDRESS ON FILE DISORDERS OF SACRUM (Primary Dx); LUMBAGO Social History Tobacco Use Types Packs/Day Years Used Date Smoking Tobacco: Never Assessed Comments Unknown Sex and Gender Information Value Date Recorded Sex Assigned at Not on file Legal Sex Female 5:22 AM LIQUOR BLENDER Gender Identity Not on file Sexual Orientation Not on file documented as of this encounter Plan of Treatment Not on file documented as of this encounter Visit Diagnoses Diagnosis Disorders of sacrum- Primary Lumbago documented in this encounter Additional Health Concerns Infection Onset Date Last Indicated Resolved Time VRE Comment:Urine 10/30/13 Resolved 11/04/2013 11/04/2013 8 10:33 AM LIQUOR BLENDER R/O COVID-19 12/25/2019 12/25/2019 12/26/2019 2:46 PM CDT R/O COVID-19 05/09/2020 05/09/2020 05/09/2020 12:1 7 PM LIQUOR BLENDER documented as of this encounter Care Teams Research Physicist Relationship Specialty Start Date End Date Dara Tavera FNP [address] [place] [address] PCP - General NURSE PRACTITIONER 10/13/18 documented as of this encounter
--- OUTSIDE RECORDS SUMMARY | 2025-05-11 21:56 | XMS_ITS | Encounter Summary ---
Author Organization [facility] Address [address] [place] [address] Care Team Providers Care Perinatal Director Name Role Phone Dara Tavera Primary Care Provider Encounter Details Date Type Department Care Team (Latest Contact Info) Description 05/20/2004 Outpatient Historical [facility] [address] [place] [address] AMBULANCE, [facility] CONVULSIONS, OTHER (CMS/HCC) (Primary Dx) Social History Tobacco Use Types Packs/Day Years Used Date Smoking Tobacco: Never Assessed Comments Unknown Sex and Gender Information Value Date Recorded Sex Assigned at Not on file Legal Sex Female 5:22 AM TEARER Gender Identity Not on file Sexual Orientation Not on file documented as of this encounter Plan of Treatment Not on file documented as of this encounter Visit Diagnoses Diagnosis Other convulsions- Primary documented in this encounter Additional Health Concerns Infection Onset Date Last Indicated Resolved Time VRE Comment:Urine 10/30/13 Resolved 11/04/2013 11/04/2013 8 10:33 AM TEARER R/O COVID-19 12/25/2019 12/25/2019 12/26/2019 2:46 PM CDT R/O COVID-19 05/09/2020 05/09/2020 05/09/2020 12:1 7 PM TEARER documented as of this encounter Care Teams Perinatal Director Relationship Specialty Start Date End Date Dara Tavera FNP [address] [place] [phone] PCP - General NURSE PRACTITIONER 10/13/18 documented as of this encounter
--- OUTSIDE RECORDS SUMMARY | 2025-05-11 21:56 | XMS_ITS | Encounter Summary ---
Author Organization [facility] Address [address] [place] [address] Care Team Providers Care Tourist Cabin Keeper Name Role Phone Dara Tavera Primary Care Provider Encounter Details Date Type Department Care Team (Latest Contact Info) Description 10/22/2004 Outpatient Historical [facility] [place] [address] [facility] [address] [place] [address] Rayn Don NP NO ADDRESS ON FILE LUMP OR MASS IN BREAST (Primary Dx) Social History Tobacco Use Types Packs/Day Years Used Date Smoking Tobacco: Never Assessed Comments Unknown Sex and Gender Information Value Date Recorded Sex Assigned at Not on file Legal Sex Female 5:22 AM MESSAGE BROKER DEVELOPER Gender Identity Not on file Sexual Orientation Not on file documented as of this encounter Plan of Treatment Not on file documented as of this encounter Visit Diagnoses Diagnosis Lump or mass in breast- Primary documented in this encounter Additional Health Concerns Infection Onset Date Last Indicated Resolved Time VRE Comment:Urine 10/30/13 Resolved 11/04/2013 11/04/2013 8 10:33 AM MESSAGE BROKER DEVELOPER R/O COVID-19 12/25/2019 12/25/2019 12/26/2019 2:46 PM CDT R/O COVID-19 05/09/2020 05/09/2020 05/09/2020 12:1 7 PM MESSAGE BROKER DEVELOPER documented as of this encounter Care Teams Tourist Cabin Keeper Relationship Specialty Start Date End Date Dara Tavera FNP [address] [place] [address] PCP - General NURSE PRACTITIONER 10/13/18 documented as of this encounter
--- OUTSIDE RECORDS SUMMARY | 2025-05-11 21:56 | XMS_ITS | Encounter Summary ---
Author Organization [facility] Address [address] [place] [address] Care Team Providers Care Laundry Clerk Name Role Phone Dara Tavera Primary Care Provider Encounter Details Date Type Department Care Team (Latest Contact Info) Description 04/27/2003 Outpatient Historical [facility] Behavioral Clinical Services [address] [place] [address] Oniel Upton MD NO ADDRESS ON FILE SCHIZOAFFECTIVE-UNSP EC ([facility]/HCC) (Primary Dx) Social History Tobacco Use Types Packs/Day Years Used Date Smoking Tobacco: Never Assessed Comments Unknown Sex and Gender Information Value Date Recorded Sex Assigned at Not on file Legal Sex Female 5:22 AM MERCHANDISE CLERK Gender Identity Not on file Sexual Orientation Not on file documented as of this encounter Plan of Treatment Not on file documented as of this encounter Visit Diagnoses Diagnosis Schizoaffective disorder, unspecified condition ([facility]/HCC)- Primary Schizoaffective disorder, unspecified condition documented in this encounter Additional Health Concerns Infection Onset Date Last Indicated Resolved Time VRE Comment:Urine 10/30/13 Resolved 11/04/2013 11/04/2013 8 10:33 AM MERCHANDISE CLERK R/O COVID-19 12/25/2019 12/25/2019 12/26/2019 2:46 PM CDT R/O COVID-19 05/09/2020 05/09/2020 05/09/2020 12:1 7 PM MERCHANDISE CLERK documented as of this encounter Care Teams Laundry Clerk Relationship Specialty Start Date End Date Dara Tavera FNP [address] [place] [phone] PCP - General NURSE PRACTITIONER 10/13/18 documented as of this encounter
--- OUTSIDE RECORDS SUMMARY | 2025-05-11 21:56 | XMS_ITS | Encounter Summary ---
Author Organization [facility] Address [address] [place] [address] Care Team Providers Care Gem Stone Cutter Name Role Phone Dara Tavera Primary Care Provider Encounter Details Date Type Department Care Team (Latest Contact Info) Description 11/08/2002 Outpatient Historical [facility] Ear, N[facility] and Throat [address] 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
--- OUTSIDE RECORDS SUMMARY | 2025-05-11 21:56 | XMS_ITS | Encounter Summary ---
Author Organization [facility] Address [address] [place] [address] Care Team Providers Care Drafter Seismograph Name Role Phone Dara Tavera Primary Care Provider Encounter Details Date Type Department Care Team (Late st Contact Info) Description 05/30/[address] [facility] Pain Management Procedures [address] [place] [address] Prasad Carpenter MD NO ADDRESS ON FILE Social History Tobacco Use Types Packs/Day Years Used Date Smoking Tobacco: Never Assessed Comments Unknown Sex and Gender Information Value Date Recorded Sex Assigned at Not on file Legal Sex Female 5:22 AM APPLICATION DESIGN ENGINEER Gender Identity Not on file Sexual Orientation Not on file documented as of this encounter Plan of Treatment Not on file documented as of this encounter Visit Diagnoses Not on filedocumented in this encounter Additional Health Concerns Infection Onset Date Last Indicated Resolved Time VRE Comment:Urine 10/30/13 Resolved 11/04/2013 11/04/2013 8 10:33 AM APPLICATION DESIGN ENGINEER R/O COVID-19 12/25/2019 12/25/2019 12/26/2019 2:46 PM CDT R/O COVID-19 05/09/2020 05/09/2020 05/09/2020 12:1 7 PM APPLICATION DESIGN ENGINEER documented as of this encounter Care Teams Drafter Seismograph Relationship Specialty Start Date End Date Dara Tavera FNP [address] [place] [address] PCP - General NURSE PRACTITIONER 10/13/18 documented as of this encounter
--- OUTSIDE RECORDS SUMMARY | 2025-05-11 21:56 | XMS_ITS | Encounter Summary ---
Author Organization [facility] Address [address] [place] [address] Care Team Providers Care Hospice Manager Name Role Phone Dara Tavera Primary Care Provider [phone] Encounter Details Date Type Department Care Team (Latest Contact Info) Description 03/27/2003 Outpatient Historical [facility] Behavioral Clinical Services [address] [place] [address] Oniel Upton MD NO ADDRESS ON FILE SCHIZOAFFECTIVE-UNSP EC ([facility]/HCC) (Primary Dx) Social History Tobacco Use Types Packs/Day Years Used Date Smoking Tobacco: Never Assessed Comments Unknown Sex and Gender Information Value Date Recorded Sex Assigned at Not on file Legal Sex Female 5:22 AM PERSONNEL PSYCHOLOGIST Gender Identity Not on file Sexual Orientation [...] 10/30/13 Resolved 11/04/2013 11/04/2013 8 10:33 AM PERSONNEL PSYCHOLOGIST R/O COVID-19 12/25/2019 12/25/2019 12/26/2019 2:46 PM CDT R/O COVID-19 05/09/2020 05/09/2020 05/09/2020 12:1 7 PM PERSONNEL PSYCHOLOGIST documented as of this encounter Care Teams Hospice Manager Relationship Specialty Start Date End Date Dara Tavera FNP [address] [place] [phone] PCP - General NURSE PRACTITIONER 10/13/18 documented as of this encounter
--- OUTSIDE RECORDS SUMMARY | 2025-05-11 21:56 | XMS_ITS | Encounter Summary ---
Author Organization [facility] Address [address] [place] [address] Care Team Providers Care Leakage Tester Name Role Phone Dara Tavera AMANDEEP Primary Care Provider Encounter Details Date Type Department Care Team (Latest Contact Info) Description 02/24/2005 Outpatient Historical [facility] Pain Management- [place] [address] [place] [address] Prasad Carpenter MD NO ADDRESS ON FILE OTHER BACK SYMPTOMS (Primary Dx); LUMB/LUMBOSAC DISC DEGEN; LUMBAGO; Lumbosacral spondylosis Social History Tobacco Use Types Packs/Day Years Used Date Smoking Tobacco: Never Assessed Comments Unknown Sex and Gender Information Value Date Recorded Sex Assigned at Not on file Legal Sex Female 5:22 AM LOG BRANDER Gender Identity Not on file Sexual Orientation [...] 10/30/13 Resolved 11/04/2013 11/04/2013 8 10:33 AM LOG BRANDER R/O COVID-19 12/25/2019 12/25/2019 12/26/2019 2:46 PM CDT R/O COVID-19 05/09/2020 05/09/2020 05/09/2020 12:1 7 PM LOG BRANDER documented as of this encounter Care Teams Leakage Tester Relationship Specialty Start Date End Date Dara Tavera FNP [address] [place] [phone] PCP - General NURSE PRACTITIONER 10/13/18 documented as of this encounter
--- OUTSIDE RECORDS SUMMARY | 2025-05-11 21:56 | XMS_ITS | Encounter Summary ---
Author Organization [facility] Address [address] [place] [address] Care Team Providers Care Computer Meteorologist Name Role Phone Dara Tavera Primary Care Provider Encounter Details Date Type Department Care Team (Latest Contact Info) Description 03/07/2005 Outpatient Historical [facility] Pain Management Procedures [address] [place] [address] Prasad Carpenter MD NO ADDRESS ON FILE LUMBOSACRAL NEURITIS NOS (Primary Dx) Social History Tobacco Use Types Packs/Day Years Used Date Smoking Tobacco: Never Assessed Comments Unknown Sex and Gender Information Value Date Recorded Sex Assigned at Not on file Legal Sex Female 5:22 AM GILL NET STRINGER Gender Identity Not on file Sexual Orientation Not on file documented as of this encounter Plan of Treatment Not on file documented as of this encounter Visit Diagnoses Diagnosis Thoracic or lumbosacral neuritis or radiculitis, unspecified- Primary documented in this encounter Additional Health Concerns Infection Onset Date Last Indicated Resolved Time VRE Comment:Urine 10/30/13 Resolved 11/04/2013 11/04/2013 8 10:33 AM GILL NET STRINGER R/O COVID-19 12/25/2019 12/25/2019 12/26/2019 2:46 PM CDT R/O COVID-19 05/09/2020 05/09/2020 05/09/2020 12:1 7 PM GILL NET STRINGER documented as of this encounter Care Teams Computer Meteorologist Relationship Specialty Start Date End Date Dara Tavrea FNP [address] [place] [address] PCP - General NURSE PRACTITIONER 10/13/18 documented as of this encounter
--- OUTSIDE RECORDS SUMMARY | 2025-05-11 21:56 | XMS_ITS | Encounter Summary ---
Author Organization [facility] Address [address] [place] [address] Care Team Providers Care End Lathe Operator Name Role Phone Dara Tavera CLINICAL IMMUNOLOGIST Primary Care Provider Encounter Details Date Type Department Care Team (Latest Contact Info) Description 07/29/2003 Outpatient Historical [facility] Behavioral Clinical Services [address] [place] [address] Hood Kerr Jr., MD [address] [place] [address] SCHIZOAFFECTIVE-UNSP EC (CMS/HCC) (Primary Dx) Social History Tobacco Use Types Packs/Day Years Used Date Smoking Tobacco: Never Assessed Comments Unknown Sex and Gender Information Value Date Recorded Sex Assigned at Not on file Legal Sex Female 5:22 AM FIELD CHECKER Gender Identity Not on file Sexual [...] Resolved 11/04/2013 11/04/2013 8 10:33 AM FIELD CHECKER R/O COVID-19 12/25/2019 12/25/2019 12/26/2019 2:46 PM CDT R/O COVID-19 05/09/2020 05/09/2020 05/09/2020 12:1 7 PM FIELD CHECKER documented as of this encounter Care Teams End Lathe Operator Relationship Specialty Start Date End Date Dara Tavera FNP [address] [place] [phone] PCP - General NURSE PRACTITIONER 10/13/18 documented as of this encounter
--- OUTSIDE RECORDS SUMMARY | 2025-05-11 21:56 | XMS_ITS | Encounter Summary ---
Author Organization [facility] Address [address] [place] [address] Care Team Providers Care Pressure Tester Operator Name Role Phone Dara Tavera Primary Care Provider [phone] Encounter Details Date Type Department Care Team (Latest Contact Info) Description 02/11/2004 Outpatient Historical [facility] [address] [place] [address] AMBULANCE, [facility] NONPSYCHOTIC MENTAL DISORDER NOS (Primary Dx) Social History Tobacco Use Types Packs/Day Years Used Date Smoking Tobacco: Never Assessed Comments Unknown Sex and Gender Information Value Date Recorded Sex Assigned at Not on file Legal Sex Female 5:22 AM RN ADMISSION Gender Identity Not on file Sexual Orientation Not on file documented as of this encounter Plan of Treatment Not on file documented as of this encounter Visit Diagnoses Diagnosis Unspecified nonpsychotic mental disorder- Primary documented in this encounter Additional Health Concerns Infection Onset Date Last Indicated Resolved Time VRE Comment:Urine 10/30/13 Resolved 11/04/2013 11/04/2013 8 10:33 AM RN ADMISSION R/O COVID-19 12/25/2019 12/25/2019 12/26/2019 2:46 PM CDT R/O COVID-19 05/09/2020 05/09/2020 05/09/2020 12:1 7 PM RN ADMISSION documented as of this encounter Care Teams Pressure Tester Operator Relationship Specialty Start Date End Date Dara Tavera FNP [address] [place] [phone] PCP - General NURSE PRACTITIONER 10/13/18 documented as of this encounter
--- OUTSIDE RECORDS SUMMARY | 2025-05-11 21:56 | XMS_ITS | Encounter Summary ---
Author Organization [facility] Address [address] [place] [address] Care Team Providers Care Dry Cleaning Checker Name Role Phone Dara Tavera Primary Care Provider [phone] Encounter Details Date Type Department Care Team (Latest Contact Info) Description 07/28/2003 Outpatient Historical [facility] PreAdmission [address] [place] [address] Hossein Blair MD NO ADDRESS ON FILE PREOP EXAM OTHER SPECIFIED (Primary Dx) Social History Tobacco Use Types Packs/Day Years Used Date Smoking Tobacco: Never Assessed Comments Unknown Sex and Gender Information Value Date Recorded Sex Assigned at Not on file Legal Sex Female 5:22 AM FOUNTAIN WAITRESS/WAITER Gender Identity Not on file Sexual Orientation Not on file documented as of this encounter Plan of Treatment Not on file documented as of this encounter Visit Diagnoses Diagnosis Other specified pre-operative examination- Primary documented in this encounter Additional Health Concerns Infection Onset Date Last Indicated Resolved Time VRE Comment:Urine 10/30/13 Resolved 11/04/2013 11/04/2013 8 10:33 AM FOUNTAIN WAITRESS/WAITER R/O COVID-19 12/25/2019 12/25/2019 12/26/2019 2:46 PM CDT R/O COVID-19 05/09/2020 05/09/2020 05/09/2020 12:1 7 PM FOUNTAIN WAITRESS/WAITER documented as of this encounter Care Teams Dry Cleaning Checker Relationship Specialty Start Date End Date Dara Tavera FNP [address] [place] [address] PCP - General NURSE PRACTITIONER 10/13/18 documented as of this encounter
--- OUTSIDE RECORDS SUMMARY | 2025-05-11 21:56 | XMS_ITS | Encounter Summary ---
Author Organization [facility] Address [address] [place] [address] Care Team Providers Care Cross Tie Cutter Name Role Phone Dara Tavera AMANDEEP Primary Care Provider Encounter Details Date Type Department Care Team (Latest Contact Info) Description 11/04/2002 Outpatient Historical [facility] Ear, Nose and Throat [place] [address] 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
--- OUTSIDE RECORDS SUMMARY | 2025-05-11 21:56 | XMS_ITS | Encounter Summary ---
Author Organization [facility] Address [address] [place] [address] Care Team Providers Care It Solutions Architect Name Role Phone Dara Tavera Primary Care Provider Encounter Details Date Type Department Care Team (Latest Contact Info) Description 01/21/2004 Outpatient Historical [facility] Ambulance [address] [place] [address] AMBULANCE, [facility] CONVULSIONS, OTHER (CMS/HCC) (Primary Dx) Social History Tobacco Use Types Packs/Day Years Used Date Smoking Tobacco: Never Assessed Comments Unknown Sex and Gender Information Value Date Recorded Sex Assigned at Not on file Legal Sex Female 5:22 AM PHARMACOVIGILANCE SAFETY EXPERT Gender Identity Not on file Sexual Orientation Not on file documented as of this encounter Plan of Treatment Not on file documented as of this encounter Visit Diagnoses Diagnosis Other convulsions- Primary documented in this encounter Additional Health Concerns Infection Onset Date Last Indicated Resolved Time VRE Comment:Urine 10/30/13 Resolved 11/04/2013 11/04/2013 8 10:33 AM PHARMACOVIGILANCE SAFETY EXPERT R/O COVID-19 12/25/2019 12/25/2019 12/26/2019 2:46 PM CDT R/O COVID-19 05/09/2020 05/09/2020 05/09/2020 12:1 7 PM PHARMACOVIGILANCE SAFETY EXPERT documented as of this encounter Care Teams It Solutions Architect Relationship Specialty Start Date End Date Dara Tavera FNP [address] [place] [phone] PCP - General NURSE PRACTITIONER 10/13/18 documented as of this encounter
--- OUTSIDE RECORDS SUMMARY | 2025-05-11 21:56 | XMS_ITS | Encounter Summary ---
Author Organization [facility] Address [address] [place] [address] Care Team Providers Care Painter Spring Name Role Phone Ayse Dara BERNSTEIN Primary Care Provider Encounter Details Date Type Department Care Team (Latest Contact Info) Description 11/18/2002 Outpatient [facility] Ear, Nose and Throat [facility] [place] [address] Dmitri Vega MD [address] [place] [address] SURGERY FOLLOWUP, UNSPEC (Primary Dx) Social History Tobacco Use Types Packs/Day Years Used Date Smoking Tobacco: Never Assessed Comments Unknown Sex and Gender Information Value Date Recorded Sex Assigned at Not on file Legal Sex Female 5:22 AM KINDERGARTEN TEACHER Gender Identity Not on file Sexual Orientation Not on file documented as of this encounter Plan of Treatment Not on file documented as of this encounter Visit Diagnoses Diagnosis Follow-up examination, following unspecified surgery- Primary documented in this encounter Additional Health Concerns Infection Onset Date Last Indicated Resolved Time VRE Comment:Urine 10/30/13 Resolved 11/04/2013 11/04/2013 8 10:33 AM KINDERGARTEN TEACHER R/O COVID-19 12/25/2019 12/25/2019 12/26/2019 2:46 PM CDT R/O COVID-19 05/09/2020 05/09/2020 05/09/2020 12:1 7 PM KINDERGARTEN TEACHER documented as of this encounter Care Teams Painter Spring Relationship Specialty Start Date End Date Dara Tavera FNP [address] [place] [phone] PCP - General NURSE PRACTITIONER 10/13/18 documented as of this encounter
--- OUTSIDE RECORDS SUMMARY | 2025-05-11 21:56 | XMS_ITS | Encounter Summary ---
Author Organization [facility] Address [address] [place] [address] Care Team Providers Care Outbound Sales Advisor Name Role Phone Dara Tavera AMANDEEP Primary Care Provider Encounter Details Date Type Department Care Team (Latest Contact Info) Description 03/07/2005 Outpatient Historical [facility] Pain Management- [place] [address] [place] [address] Prasad Carpenter MD NO ADDRESS ON FILE Lumbosacral spondylosis (Primary Dx); LUMBAGO; LUMB/LUMBOSAC DISC DEGEN; OTHER BACK SYMPTOMS Social History Tobacco Use Types Packs/Day Years Used Date Smoking Tobacco: Never Assessed Comments Unknown Sex and Gender Information Value Date Recorded Sex Assigned at Not on file Legal Sex Female 5:22 AM DISTRIBUTION TRANSFORMER ASSEMBLER Gender Identity Not on file Sexual [...] 10/30/13 Resolved 11/04/2013 11/04/2013 8 10:33 AM DISTRIBUTION TRANSFORMER ASSEMBLER R/O COVID-19 12/25/2019 12/25/2019 12/26/2019 2:46 PM CDT R/O COVID-19 05/09/2020 05/09/2020 05/09/2020 12:1 7 PM DISTRIBUTION TRANSFORMER ASSEMBLER documented as of this encounter Care Teams Outbound Sales Advisor Relationship Specialty Start Date End Date Dara Tavera FNP [address] [place] [phone] PCP - General NURSE PRACTITIONER 10/13/18 documented as of this encounter
--- OUTSIDE RECORDS SUMMARY | 2025-05-11 21:56 | XMS_ITS | Encounter Summary ---
Author Organization [facility] Address [address] [place] [address] Care Team Providers Care Stitcher Tape Controlled Machine Name Role Phone Dara Tavera ASSISTANT HAIRSTYLIST Primary Care Provider Encounter Details Date Type Department Care Team (Latest Contact Info) Description 12/04/2003 Outpatient Historical [facility] Behavioral Clinical Services [address] [place] [address] Hood Kerr Jr., MD [address] [place] [address] SCHIZOAFFECTIVE-UNSP EC (CMS/HCC) (Primary Dx) Social History Tobacco Use Types Packs/Day Years Used Date Smoking Tobacco: Never Assessed Comments Unknown Sex and Gender Information Value Date Recorded Sex Assigned at Not on file Legal Sex Female 5:22 AM SUPERINTENDENT GREENS Gender Identity Not on file Sexual Orientation Not on file documented as of this encounter Plan of Treatment Not on file documented as of this encounter Visit Diagnoses Diagnosis Schizoaffective disorder, unspecified condition (CMS/HCC)- Primary Schizoaffective disorder, unspecified condition documented in this encounter Additional Health Concerns Infection Onset Date Last Indicated Resolved Time VRE Comment:Urine 10/30/13 Resolved 11/04/2013 11/04/2013 8 10:33 AM SUPERINTENDENT GREENS R/O COVID-19 12/25/2019 12/25/2019 12/26/2019 2:46 PM CDT R/O COVID-19 05/09/2020 05/09/2020 05/09/2020 12:1 7 PM SUPERINTENDENT GREENS documented as of this encounter Care Teams Stitcher Tape Controlled Machine Relationship Specialty Start Date End Date Dara Tavera FNP [address] [place] [phone] PCP - General NURSE PRACTITIONER 10/13/18 documented as of this encounter
--- OUTSIDE RECORDS SUMMARY | 2025-05-11 21:56 | XMS_ITS | Encounter Summary ---
Author Organization [facility] Address [address] [place] [address] Care Team Providers Care Voice And Data Technician Name Role Phone Dara Tavera Primary [...] on file Legal Sex Female 5:22 AM BEDSPREAD FOLDER Gender Identity Not on file Sexual Orientation Not on file documented as of this encounter Plan of Treatment Not on file documented as of this encounter Visit Diagnoses Not on filedocumented in this encounter Additional Health Concerns Infection Onset Date Last Indicated Resolved Time VRE Comment:Urine 10/30/13 Resolved 11/04/2013 11/04/2013 8 10:33 AM BEDSPREAD FOLDER R/O COVID-19 12/25/2019 12/25/2019 12/26/2019 2:46 PM CDT R/O COVID-19 05/09/2020 05/09/2020 05/09/2020 12:1 7 PM BEDSPREAD FOLDER documented as of this encounter Care Teams Voice And Data Technician Relationship Specialty Start Date End Date Dara Tavera FNP [address] [place] [phone] PCP - General NURSE PRACTITIONER 10/13/18 documented as of this encounter
--- OUTSIDE RECORDS SUMMARY | 2025-05-11 21:56 | XMS_ITS | Encounter Summary ---
Author Organization [facility] Address [address] [place] [address] Care Team Providers Care Master Of Ceremonies Name Role Phone Dara Tavera Primary Care Provider Encounter Details Date Type Department Care Team (Latest Contact Info) Description 08/15/2004 Outpatient Historical [facility] [address] [place] [address] AMBULANCE, [facility] SYNCOPE AND COLLAPSE (Primary Dx) Social History Tobacco Use Types Packs/Day Years Used Date Smoking Tobacco: Never Assessed Comments Unknown Sex and Gender Information Value Date Recorded Sex Assigned at Not on file Legal Sex Female 5:22 AM PUNCHBOARD ASSEMBLER Gender Identity Not on file Sexual Orientation Not on file documented as of this encounter Plan of Treatment Not on file documented as of this encounter Visit Diagnoses Diagnosis Syncope and collapse- Primary documented in this encounter Additional Health Concerns Infection Onset Date Last Indicated Resolved Time VRE Comment:Urine 10/30/13 Resolved 11/04/2013 11/04/2013 8 10:33 AM PUNCHBOARD ASSEMBLER R/O COVID-19 12/25/2019 12/25/2019 12/26/2019 2:46 PM CDT R/O COVID-19 05/09/2020 05/09/2020 05/09/2020 12:1 7 PM PUNCHBOARD ASSEMBLER documented as of this encounter Care Teams Master Of Ceremonies Relationship Specialty Start Date End Date Dara Tavera FNP [address] [place] [phone] PCP - General NURSE PRACTITIONER 10/13/18 documented as of this encounter
--- OUTSIDE RECORDS SUMMARY | 2025-05-11 21:56 | XMS_ITS | Encounter Summary ---
Author Organization [facility] Address [address] Attn: [place] [address] Care Team Providers Care Cassandra Architect Name Role Phone Dara Tavera AMANDEEP Primary Care Provider Encounter Details Date Type Department Care Team (Late st Contact Info) Description 05/02/2003 Inpatient Historical Hood Kerr Jr., MD [address] [place] [address] SCHIZOAFF-SUBCHR/EXACER (CMS/[facility]) (Primary Dx) Social History Tobacco Use Types Packs/Day Years Used Date Smoking Tobacco: Never Assessed Comments Unknown Sex and Gender Information Value Date Recorded Sex Assigned at Not on file Legal Sex Female 5:22 AM PEDIATRIC CLINICAL DIETICIAN Gender Identity Not on file Sexual Orientation [...] 10/30/13 Resolved 11/04/2013 11/04/2013 8 10:33 AM PEDIATRIC CLINICAL DIETICIAN R/O COVID-19 12/25/2019 12/25/2019 12/26/2019 2:46 PM CDT R/O COVID-19 05/09/2020 05/09/2020 05/09/2020 12:1 7 PM PEDIATRIC CLINICAL DIETICIAN documented as of this encounter Care Teams Cassandra Architect Relationship Specialty Start Date End Date Dara Tavera FNP [address] [place] [phone] PCP - General NURSE PRACTITIONER 10/13/18 documented as of this encounter
--- OUTSIDE RECORDS SUMMARY | 2025-05-11 21:56 | XMS_ITS | Encounter Summary ---
Author Organization [facility] Address [address] [place] [address] Care Team Providers Care Manager Ecommerce Name Role Phone Dara Tavera HUMAN CAPITAL MANAGER Primary Care Provider Encounter Details Date Type Department Care Team (Latest Contact Info) Description 02/10/2005 Outpatient Historical [facility] [place] [address] [facility] [address] [place] [address] Faiza Petersen MD NO ADDRESS ON FILE ALLERGIC RHINITIS NOS (Primary Dx); HEADACHE; AFTERCARE ROLLER BEARING INSPECTOR USE MEDICATN; CONVULSIONS NEC ([facility] Social History Tobacco Use Types Packs/Day Years Used Date Smoking Tobacco: Never Assessed Comments Unknown Sex and Gender Information Value Date Recorded Sex Assigned at Not on file Legal Sex Female 5:22 AM DIGITAL ASSISTANT Gender Identity Not on file Sexual [...] Resolved 11/04/2013 11/04/2013 8 10:33 AM DIGITAL ASSISTANT R/O COVID-19 12/25/2019 12/25/2019 12/26/2019 2:46 PM CDT R/O COVID-19 05/09/2020 05/09/2020 05/09/2020 12:1 7 PM DIGITAL ASSISTANT documented as of this encounter Care Teams Manager Ecommerce Relationship Specialty Start Date End Date Dara Tavera FNP [address] [place] [phone] PCP - General NURSE PRACTITIONER 10/13/18 documented as of this encounter
--- OUTSIDE RECORDS SUMMARY | 2025-05-11 21:57 | XMS_ITS | Encounter Summary ---
Author Organization [facility] Address [address] [place] [address] Care Team Providers Care Assembler Filters Name Role Phone Dara Tavera AMANDEEP Primary Care Provider [phone] Encounter Details Date Type Department Care Team (Latest Contact Info) Description 02/20/2008 Outpatient Historical [facility] [address] [place] [address] AMBULANCE, [facility] Hemorrhage of Rectum and Anus; Unspecified Tachycardia; [...] file Legal Sex Female 5:22 AM INFORMATION ARCHITECT Gender Identity Not on file Sexual [...] Resolved 11/04/2013 11/04/2013 8 10:33 AM INFORMATION ARCHITECT R/O COVID-19 12/25/2019 12/25/2019 12/26/2019 2:46 PM CDT R/O COVID-19 05/09/2020 05/09/2020 05/09/2020 12:1 7 PM INFORMATION ARCHITECT documented as of this encounter Care Teams Assembler Filters Relationship Specialty Start Date End Date Dara Tavera FNP [address] [place] [address] PCP - General NURSE PRACTITIONER 10/13/18 documented as of this encounter
--- OUTSIDE RECORDS SUMMARY | 2025-05-11 21:57 | XMS_ITS | Encounter Summary ---
Author Organization [facility] Address [address] [place] [address] Care Team Providers Care Documentation Liaison Name Role Phone Dara Tavera ROUGH ROUNDER MACHINE Primary Care Provider Encounter Details Date Type Department Care Team (Latest Contact Info) Description 10/04/2003 Outpatient Historical [facility] Behavioral Clinical Services [address] [place] [address] Hood Kerr Jr., MD [address] [place] [address] SCHIZOAFFECTIVE-UNSP EC (CMS/HCC) (Primary Dx) Social History Tobacco Use Types Packs/Day Years Used Date Smoking Tobacco: Never Assessed Comments Unknown Sex and Gender Information Value Date Recorded Sex Assigned at Not on file Legal Sex Female 5:22 AM THIRD SHIFT LIEUTENANT Gender Identity Not on file Sexual Orientation Not on file documented as of this encounter Plan of Treatment Not on file documented as of this encounter Visit Diagnoses Diagnosis Schizoaffective disorder, unspecified condition (CMS/HCC)- Primary Schizoaffective disorder, unspecified condition documented in this encounter Additional Health Concerns Infection Onset Date Last Indicated Resolved Time VRE Comment:Urine 10/30/13 Resolved 11/04/2013 11/04/2013 8 10:33 AM THIRD SHIFT LIEUTENANT R/O COVID-19 12/25/2019 12/25/2019 12/26/2019 2:46 PM CDT R/O COVID-19 05/09/2020 05/09/2020 05/09/2020 12:1 7 PM THIRD SHIFT LIEUTENANT documented as of this encounter Care Teams Documentation Liaison Relationship Specialty Start Date End Date Dara Tavera FNP [address] [place] [phone] PCP - General NURSE PRACTITIONER 10/13/18 documented as of this encounter
--- OUTSIDE RECORDS SUMMARY | 2025-05-11 21:57 | XMS_ITS | Encounter Summary ---
Author Organization [facility] Address [address] [place] [address] Care Team Providers Care Business Info Consultant Name Role Phone Dara Tavera Primary Care Provider Encounter Details Date Type Department Care Team (Latest Contact Info) Description 07/02/2003 Outpatient Historical [facility] Imaging Services [address] [place] [address] Hossein Blair MD NO ADDRESS ON FILE RENAL & URETERAL DIS NOS (Primary Dx) Social History Tobacco Use Types Packs/Day Years Used Date Smoking Tobacco: Never Assessed Comments Unknown Sex and Gender Information Value Date Recorded Sex Assigned at Not on file Legal Sex Female 5:22 AM WASTEWATER PLANT OPERATOR Gender Identity Not on file Sexual Orientation Not on file documented as of this encounter Plan of Treatment Not on file documented as of this encounter Visit Diagnoses Diagnosis Unspecified disorder of kidney and ureter- Primary documented in this encounter Additional Health Concerns Infection Onset Date Last Indicated Resolved Time VRE Comment:Urine 10/30/13 Resolved 11/04/2013 11/04/2013 10:33 AM WASTEWATER PLANT OPERATOR R/O COVID-19 12/25/2019 12/25/2019 12/26/2019 2:46 PM CDT R/O COVID-19 05/09/2020 05/09/2020 05/09/2020 12:1 7 PM WASTEWATER PLANT OPERATOR documented as of this encounter Care Teams Business Info Consultant Relationship Specialty Start Date End Date Dara Tavera FNP [address] [place] [phone] PCP - General NURSE PRACTITIONER 10/13/18 documented as of this encounter
--- OUTSIDE RECORDS SUMMARY | 2025-05-11 21:57 | XMS_ITS | Encounter Summary ---
Author Organization [facility] Address [address] [place] [address] Care Team Providers Care Medicine Technologist Name Role Phone Dara Tavera AMANDEEP Primary Care Provider Encounter Details Date Type Department Care Team (Late st Contact Info) Description 04/27/2007 [facility] Emergency Department [address] [place] [address] Sammi Justice MD [address] [place] [address] Abdominal Pain, Other Specified Site (Primary Dx) Social History Tobacco Use Types Packs/Day Years Used Date Smoking Tobacco: Never Assessed Comments Unknown Sex and Gender Information Value Date Recorded Sex Assigned at Not on file Legal Sex Female 5:22 AM PATIENT CARE Gender Identity Not on file Sexual Orientation Not on file documented as of this encounter Plan of Treatment Not on file documented as of this encounter Procedures Procedure Name Priority Date/Time Associated Diagnosis Comments URINALYSIS W/REFLEX MICROSCOPIC Routine 04/27/2007 6:20 PM PATIENT CARE CBC WITH DIFFERENTIAL Routine 04/27/2007 6:09 PM PATIENT CARE COMPREHENSIVE METABOLIC PANEL Routine 04/27/2007 6:09 PM PATIENT CARE documented in this encounter Results * URINALYSIS (04/27/2007 6:20 PM PATIENT CARE) COLOR UA Yellow Straw INTERFACE SYSTEM CLARITY [...] No No INTERFACE SYSTEM 04/27/2007 6:20 PM PATIENT CARE Sammi Justice MD URINE ORDERABLES Edited Performing Organization Address City/[facility] Co de Phone Number INTERFACE SYSTEM Refer to clinic/hospital department * (ABNORMAL) COMPREHENSIVE METABOLIC PANEL (04/27/2007 6:09 PM PATIENT CARE) GLUCOSE 108 70 - 110 mg/dL INTERFACE [...] 295 mOsm/Kg INTERFACE SYSTEM 04/27/2007 6:09 PM PATIENT CARE Sammi Justice MD CHEMISTRY ORDERABLES Edited INTERFACE SYSTEM Refer to clinic/hospital department * (ABNORMAL) CBC WITH DIFFERENTIAL (04/27/2007 6:09 PM PATIENT CARE) WBC 11.0 4.5 - 11.0 K/ul INTERFACE [...] 0.2 K/ul INTERFACE SYSTEM 04/27/2007 6:09 PM PATIENT CARE us Sammi Justice MD HEMATOLOGY ORDERABLES Edite d INTERFACE SYSTEM Refer to clinic/hospital department documented in this encounter Visit Diagnoses Diagnosis Abdominal pain, other specified site- Primary documented in this encounter Additional Health Concerns Infection Onset Date Last Indicated Resolved Time VRE Comment:Urine 10/30/13 Resolved 11/04/2013 11/04/2013 8 10:33 AM PATIENT CARE R/O COVID-19 12/25/2019 12/25/2019 12/26/2019 2:46 PM CDT R/O COVID-19 05/09/2020 05/09/2020 05/09/2020 12:1 7 PM PATIENT CARE documented as of this encounter Care Teams Medicine Technologist Relationship Specialty Start Date End Date Dara Tavera FNP [address] [place] [address] PCP - General NURSE PRACTITIONER 10/13/18 documented as of this encounter
--- OUTSIDE RECORDS SUMMARY | 2025-05-11 21:57 | XMS_ITS | Encounter Summary ---
Author Organization [facility] Address [address] [place] [address] Care Team Providers Care Public Health Name Role Phone Dara Tavera CHEMIST BIOLOGICAL Primary Care Provider Encounter Details Date Type Department Care Team (Late st Contact Info) Description 07/31/2007 Emergency [facility] Emergency Department [address] [place] [address] Ed, Physician NO ADDRESS ON FILE Silvia Mayers MD [address] [place] [address] Social History Tobacco Use Types Packs/Day Years Used Date Smoking Tobacco: Never Assessed Comments Unknown Sex and Gender Information Value Date Recorded Sex Assigned at Not on file Legal Sex Female 5:22 AM CLOAK ROOM ATTENDANT Gender Identity Not on file Sexual Orientation Not on file documented as of this encounter Plan of Treatment Not on file documented as of this encounter Procedures Procedure Name Priority Date/Time Associated Diagnosis Comments CT ABDOMEN PELVIS W CONTRAST Routine 08/01/2007 2:49 AM CLOAK ROOM ATTENDANT CBC WITH DIFFERENTIAL Stat 07/31/2007 11:25 PM CLOAK ROOM ATTENDANT COMPREHENSIVE METABOLIC PANEL Stat 07/31/2007 11:25 PM CLOAK ROOM ATTENDANT URINALYSIS MICROSCOPY ONLY Stat 07/31/2007 11:20 PM CLOAK ROOM ATTENDANT URINALYSIS W/REFLEX MICROSCOPIC Stat 07/31/2007 11:20 PM CLOAK ROOM ATTENDANT documented in this encounter Results * CT ABDOMEN PELVIS W CONTRAST (08/01/2007 2:49 AM CLOAK ROOM ATTENDANT) Anatomical Region Laterality Modality Abdomen Other 08/01/2007 2:49 AM CLOAK ROOM ATTENDANT Narrative 08/01/2007 2:49 [address] ROOM ATTENDANT CT of the abdomen and pelvis was [...] (ABNORMAL) CBC WITH DIFFERENTIAL (07/31/2007 11:25 PM CLOAK ROOM ATTENDANT) LYMPHOCYTE ABSOLUTE 2.8 1.2 - 4.0 K/ul [facility] MCV 87.2 84.0 - 103.0 Fl [facility] MPV 10.0 8.9 - 12.8 Fl [facility] BASOPHILS ABSOLUTE 0.1 0.0 - 0.2 K/ul [facility] BASOPHILS 0.6 0.0 - 1.0 % [facility] HEMOGLOBIN 13.2 12.0 - 16.0 g/dL [facility] RDW 14.8(H) 11.0 - 14.5 % [facility] MONOCYTE ABSOLUTE 0.7(H) 0.1 - 0.6 K/ul [facility] MONOCYTES 6.7 2.0 - 10.0 % [facility] WBC 9.7 4.5 - 11.0 K/ul [facility] MCH 29.1 27.0 - 34.0 pg [facility] NEUTROPHIL ABSOLUTE 6.1 2.0 - 8.0 K/ul [facility] NEUTROPHILS 62.8 42.2 - 75.2 % [facility] HEMATOCRIT 39.6 36.0 - 46.0 % [facility] EOSINOPHILS 1.4 0.0 - 7.0 % [facility] PLATELETS 272 140 - 440 K/ul [facility] EOSINOPHIL ABSOLUTE 0.1 0.0 - 0.7 K/ul [facility] RBC 4.54 4.20 - 5.40 Mil/ul [facility] LYMPHOCYTES 28.5 24.0 - 44.0 % [facility] MCHC 33.3 30.0 - 35.0 g/dL [facility] Blood specimen (specimen) 07/31/2007 11:25 PM CLOAK ROOM ATTENDANT 07/31/2007 11:32 PM CLOAK ROOM ATTENDANT us Silvia Mayers MD HEMATOLOGY ORDERABLES Final Res ult [facility] [address] [place] [address] * (ABNORMAL) COMPREHENSIVE METABOLIC PANEL (07/31/2007 11:25 PM CLOAK ROOM ATTENDANT) BUN 20(H) 7 - 17 mg/dL [facility] CO2 19(L) 22 - 32 mmol/l [facility] ANION GAP 11 9 - 20 mEq/L [facility] AST 14 8 - 33 U/L [facility] POTASSIUM 3.6 3.5 - 5.0 mEq/L [facility] GLOBULIN (CALC) 3.0 2.4 - 3.9 g/dL [facility] ALBUMIN 4.3 3.5 - 5.0 g/dL [facility] CREATININE 0.9 0.7 - 1.2 mg/dL [facility] CALCIUM 9.4 8.4 - 10.5 mg/dL [facility] ALT 21 4 - 36 IU/L [facility] OSMOLALITY, CALCULATED 291 275 - 295 mOsm/Kg [facility] GLUCOSE 113(H) 70 - 110 mg/dL [facility] CHLORIDE 114(H) 95 - 110 mEq/L [facility] ALKALINE PHOSPHATASE 154(H) 25 - 100 U/L [facility] ALBUMIN/GLOBULIN RATIO 1.4 1.0 - 2.3 [facility] SODIUM 140 136 - 145 mEq/L [facility] TOTAL PROTEIN 7.3 6.3 - 8.2 g/dL [facility] BILIRUBIN TOTAL 0.2(L) 0.3 - 1.2 mg/dL [facility] Blood specimen (specimen) 07/31/2007 11:25 PM CLOAK ROOM ATTENDANT 07/31/2007 11:32 PM CLOAK ROOM ATTENDANT Result [facility] Silvia Mayers MD CHEMISTRY ORDERABLES Final Resu lt Performing Organization Address [facility] de Phone Number [facility] [address] [place] [address] * (ABNORMAL) URINALYSIS (07/31/2007 11:20 PM CLOAK ROOM ATTENDANT) CLARITY UA Clear Clear [facility] SPECIFIC GRAVITY UA 1.031 <=1.005 [facility] GLUCOSE UA NEGATIVE NEGATIVE [facility] PH UA 6.0 5.0 - 9.0 [facility] BILIRUBIN UA NEGATIVE NEGATIVE [facility] LEUKOCYTE ESTERASE UA NEGATIVE NEGATIVE [facility] KETONES UA NEGATIVE NEGATIVE [facility] MICRO EXAM Yes(A) No [facility] COLOR UA Yellow Straw [facility] PROTEIN UA NEGATIVE NEGATIVE [facility] BLOOD UA NEGATIVE NEGATIVE [facility] NITRITE UA NEGATIVE NEGATIVE [facility] UROBILINOGEN UA 0.2 0.2 [facility] Urine, clean catch 07/31/2007 11:20 PM CLOAK ROOM ATTENDANT 07/31/2007 11:23 PM CLOAK ROOM ATTENDANT Silvia Mayers MD URINE ORDERABLES Final Result Performing Organization Address [facility] de Phone Number [facility] [address] [place] [address] * URINALYSIS MICROSCOPY ONLY (07/31/2007 11:20 PM CLOAK ROOM ATTENDANT) HYALINE CAST None Seen 0 - 2 [facility] WBC URINE None Seen 0 - 2 [facility] BACTERIA UA None Seen None Seen [facility] RBC UA None Seen 0 - 2 [facility] Urine specimen (specimen) 07/31/2007 11:20 PM CLOAK ROOM ATTENDANT 07/31/2007 11:23 PM CLOAK ROOM ATTENDANT Silvia Mayers MD URINE ORDERABLES Final Result [facility] [address] [place] [address] documented in this encounter Visit Diagnoses Not on filedocumented in this encounter Additional Health Concerns Infection Onset Date Last Indicated Resolved Time VRE Comment:Urine 10/30/13 Resolved 11/04/2013 11/04/2013 8 10:33 AM CLOAK ROOM ATTENDANT R/O COVID-19 12/25/2019 12/25/2019 12/26/2019 2:46 PM CDT R/O COVID-19 05/09/2020 05/09/2020 05/09/2020 12:1 7 PM CLOAK ROOM ATTENDANT documented as of this encounter Care Teams Public Health Relationship Specialty Start Date End Date Dara Tavera FNP [address] [place] [address] PCP - General NURSE PRACTITIONER 10/13/18 documented as of this encounter
--- OUTSIDE RECORDS SUMMARY | 2025-05-11 21:57 | XMS_ITS | Encounter Summary ---
Author Organization [facility] Address [address] [place] [address] Care Team Providers Care Combination Operator Name Role Phone Dara Tavera AMANDEEP Primary Care Provider Encounter Details Date Type Department Care Team (Latest Contact Info) Description 04/24/2008 Outpatient Historical [facility] [address] [place] [address] AMBULANCE, [facility] Unspecified Acute Reaction to Stress; Unspecified [...] file Legal Sex Female 5:22 AM MANAGER GRAPHIC Gender Identity Not on file Sexual Orientation [...] Resolved 11/04/2013 11/04/2013 8 10:33 AM MANAGER GRAPHIC R/O COVID-19 12/25/2019 12/25/2019 12/26/2019 2:46 PM CDT R/O COVID-05/09/2020 05/09/2020 05/09/2020 12:1 7 PM MANAGER GRAPHIC documented as of this encounter Care Teams Combination Operator Relationship Specialty Start Date End Date Dara Tavera FNP [address] [place] [phone] PCP - General NURSE PRACTITIONER 10/13/18 documented as of this encounter
--- OUTSIDE RECORDS SUMMARY | 2025-05-11 21:57 | XMS_ITS | Encounter Summary ---
Author Organization [facility] Address [address] [place] [address] Care Team Providers Care Team Assistant Name Role Phone Dara Tavera Primary Care Provider [phone] Encounter Details Date Type Department Care Team (Latest Contact Info) Description 09/23/2003 Outpatient Historical [facility] Imaging Services [address] [place] [address] Hossein Blair MD NO ADDRESS [...] documented as of this encounter Care Teams Team Assistant Relationship Specialty Start Date End Date Dara Tavera FNP [address] [place] [address] PCP - General NURSE PRACTITIONER 10/13/18 documented as of this encounter
--- OUTSIDE RECORDS SUMMARY | 2025-05-11 21:57 | XMS_ITS | Encounter Summary ---
Author Organization [facility] Address [address] [place] [address] Care Team Providers Care Branch Account Manager Name Role Phone Dara Tavera AMANDEEP Primary Care Provider Encounter Details Date Type Department Care Team (Latest Contact Info) Description 02/28/2008 Outpatient Historical [facility] [address] [place] [address] AMBULANCE, [facility] Blood in Stool; Nausea Alone; Unspecified [...] file Legal Sex Female 5:22 AM SCREEN OPERATOR Gender Identity Not on file Sexual [...] 10/30/13 Resolved 11/04/2013 11/04/201307/26/201 8 10:33 AM SCREEN OPERATOR R/O COVID-19 12/25/2019 12/25/2019 12/26/2019 2:46 PM CDT R/O COVID-19 05/09/2020 05/09/2020 05/09/2020 12:1 7 PM SCREEN OPERATOR documented as of this encounter Care Teams Branch Account Manager Relationship Specialty Start Date End Date Dara Tavera FNP [address] [place] [phone] PCP - General NURSE PRACTITIONER 10/13/18 documented as of this encounter
--- OUTSIDE RECORDS SUMMARY | 2025-05-11 21:57 | XMS_ITS | Encounter Summary ---
Author Organization [facility] Address [address] [place] [address] Care Team Providers Care Business Development Representative Name Role Phone Dara Tavera Primary Care Provider [phone] Encounter Details Date Type Department Care Team (Late st Contact Info) Description 07/16/2007 Outpatient [facility] [address] [place] [address] Tej Will MD [address] [address] Social History Tobacco Use Types Packs/Day Years Used Date Smoking Tobacco: Never Assessed Comments Unknown Sex and Gender Information Value Date Recorded Sex Assigned at Not on file Legal Sex Female 5:22 AM PERFUMER Gender Identity Not on file Sexual Orientation Not on file documented as of this encounter Plan of Treatment Not on file documented as of this encounter Visit Diagnoses Not on filedocumented in this encounter Additional Health Concerns Infection Onset Date Last Indicated Resolved Time VRE Comment:Urine 10/30/13 Resolved 11/04/2013 11/04/2013 8 10:33 AM PERFUMER R/O COVID-19 12/25/2019 12/25/2019 12/26/2019 2:46 PM CDT R/O COVID-19 05/09/2020 05/09/2020 05/09/2020 12:1 7 PM PERFUMER documented as of this encounter Care Teams Business Development Representative Relationship Specialty Start Date End Date Dara Tavera FNP [address] [place] [phone] PCP - General NURSE PRACTITIONER 10/13/18 documented as of this encounter
--- OUTSIDE RECORDS SUMMARY | 2025-05-11 21:57 | XMS_ITS | Encounter Summary ---
Author Organization [facility] Address [address] [place] [address] Care Team Providers Care Customer Experience Analyst Name Role Phone Dara Tavera AMANDEEP Primary Care Provider [phone] Encounter Details Date Type Department Care Team (Late st Contact Info) Description 04/29/2007 Emergency [facility] Emergency Department [address] [place] [address] Temo Nagel MD [address] [place] [address] Abdominal Pain, Other Specified Site (Primary Dx) Social History Tobacco Use Types Packs/Day Years Used Date Smoking Tobacco: Never Assessed Comments Unknown Sex and Gender Information Value Date Recorded Sex Assigned at Not on file Legal Sex Female 5:22 AM REPLENISHER Gender Identity Not on file Sexual Orientation Not on file documented as of this encounter Plan of Treatment Not on file documented as of this encounter Visit Diagnoses Diagnosis Abdominal pain, other specified site- Primary documented in this encounter Additional Health Concerns Infection Onset Date Last Indicated Resolved Time VRE Comment:Urine 10/30/13 Resolved 11/04/2013 11/04/2013 8 10:33 AM REPLENISHER R/O COVID-19 12/25/2019 12/25/2019 12/26/2019 2:46 PM CDT R/O COVID-19 05/09/2020 05/09/2020 05/09/2020 12:1 7 PM REPLENISHER documented as of this encounter Care Teams Customer Experience Analyst Relationship Specialty Start Date End Date Dara Tavera FNP [address] [place] [phone] PCP - General NURSE PRACTITIONER 10/13/18 documented as of this encounter
--- OUTSIDE RECORDS SUMMARY | 2025-05-11 21:57 | XMS_ITS | Encounter Summary ---
Author Organization [facility] Address [address] [place] [address] Care Team Providers Care Subject Scientific Research Name Role Phone Dara Tavera Primary Care Provider Encounter Details Date Type Department Care Team (Latest Contact Info) Description 06/04/1997 Outpatient Historical [facility] Roney Arora MD [address] [facility] [address] [place] [address] Unspecified osteomyelitis, other specified site (Primary Dx); Need vaccination-viral disease Social History Tobacco Use Types Packs/Day Years Used Date Smoking Tobacco: Never Assessed Comments Unknown Sex and Gender Information Value Date Recorded Sex Assigned at Not on file Legal Sex Female 5:22 AM FIREFIGHTER MARINE Gender Identity Not on file Sexual [...] 10/30/13 Resolved 11/04/2013 11/04/2013 8 10:33 AM FIREFIGHTER MARINE R/O COVID-19 12/25/2019 12/25/2019 12/26/2019 2:46 PM CDT R/O COVID-19 05/09/2020 05/09/2020 05/09/2020 12:1 7 PM FIREFIGHTER MARINE documented as of this encounter Care Teams Subject Scientific Research Relationship Specialty Start Date End Date Dara Tavera FNP [address] [place] [phone] PCP - General NURSE PRACTITIONER 10/13/18 documented as of this encounter
--- OUTSIDE RECORDS SUMMARY | 2025-05-11 21:57 | XMS_ITS | Encounter Summary ---
Author Organization [facility] Address [address] [place] [address] Care Team Providers Care Rotary Lithographic Press Operator Name Role Phone Dara Tavera AMANDEEP Primary Care Provider Encounter Details Date Type Department Care Team (Latest Contact Info) Description 04/01/2008 Outpatient Historical [facility] [address] [place] [address] AMBULANCE, [facility] Unspecified Asthma; Unspecified Nonpsychotic Mental Disorder; Other Convulsions (CMS/HCC); Tobacco Use Disorder; Personal History of Allergy to Analgesic Agent; Personal History of Allergy to Other Specified Medicinal Agents Social History Tobacco Use Types Packs/Day Years Used Date Smoking Tobacco: Never Assessed Comments Unknown Sex and Gender Information Value Date Recorded Sex Assigned at Not on file Legal Sex Female 5:22 AM BUCKLE AND BUTTON MAKER Gender Identity Not on file Sexual [...] 10/30/13 Resolved 11/04/2013 11/04/2013 8 10:33 AM BUCKLE AND BUTTON MAKER R/O COVID-19 12/25/2019 12/25/2019 12/26/2019 2:46 PM CDT R/O COVID-19 05/09/2020 05/09/2020 05/09/2020 12:1 7 PM BUCKLE AND BUTTON MAKER documented as of this encounter Care Teams Rotary Lithographic Press Operator Relationship Specialty Start Date End Date Dara Tavera FNP [address] [place] [phone] PCP - General NURSE PRACTITIONER 10/13/18 documented as of this encounter
--- OUTSIDE RECORDS SUMMARY | 2025-05-11 21:57 | XMS_ITS | Encounter Summary ---
Author Organization [facility] Address [address] [place] [address] Care Team Providers Care Fine Grade Bulldozer Operator Name Role Phone Dara Tavera Primary Care Provider Encounter Details Date Type Department Care Team (Latest Contact Info) Description 07/17/2003 Outpatient Historical [facility] Urology- [address]tr[address], 3rd [place] [address] Hossein Blair MD NO ADDRESS ON FILE URGE & STRESS MIXED INCONTINENCE (Primary Dx); FB bladder/urethra Social History Tobacco Use Types Packs/Day Years Used Date Smoking Tobacco: Never Assessed Comments Unknown Sex and Gender Information Value Date Recorded Sex Assigned at Not on file Legal Sex Female 5:22 AM WHITTLING ROOM OPERATOR Gender Identity Not on file Sexual [...] 10/30/13 Resolved 11/04/2013 11/04/2013 8 10:33 AM WHITTLING ROOM OPERATOR R/O COVID-19 12/25/2019 12/25/2019 12/26/2019 2:46 PM CDT R/O COVID-19 05/09/2020 05/09/2020 05/09/2020 12:1 7 PM WHITTLING ROOM OPERATOR documented as of this encounter Care Teams Fine Grade Bulldozer Operator Relationship Specialty Start Date End Date Dara Tavera FNP [address] [place] [phone] PCP - General NURSE PRACTITIONER 10/13/18 documented as of this encounter
--- OUTSIDE RECORDS SUMMARY | 2025-05-11 21:57 | XMS_ITS | Encounter Summary ---
Author Organization [facility] Address [address] [place] [address] Care Team Providers Care Client Experience Specialist Name Role Phone Dara Tavera Primary Care Provider Encounter Details Date Type Department Care Team (Latest Contact Info) Description 06/28/[address] [facility] [address] [place] [address] Oniel Upton MD NO ADDRESS ON FILE SCHIZOAFFECTIVE-UNSP EC ([facility]/HCC) (Primary Dx) Social History Tobacco Use Types Packs/Day Years Used Date Smoking Tobacco: Never Assessed Comments Unknown Sex and Gender Information Value Date Recorded Sex Assigned at Not on file Legal Sex Female 5:22 AM CHLORINE PLANT OPERATOR Gender Identity Not on file Sexual Orientation Not on file documented as of this encounter Plan of Treatment Not on file documented as of this encounter Visit Diagnoses Diagnosis Schizoaffective disorder, unspecified condition ([facility]/HCC)- Primary Schizoaffective disorder, unspecified condition documented in this encounter Additional Health Concerns Infection Onset Date Last Indicated Resolved Time VRE Comment:Urine 10/30/13 Resolved 11/04/2013 11/04/2013 8 10:33 AM CHLORINE PLANT OPERATOR R/O COVID-19 12/25/2019 12/25/2019 12/26/2019 2:46 PM CDT R/O COVID-19 05/09/2020 05/09/2020 05/09/2020 12:1 7 PM CHLORINE PLANT OPERATOR documented as of this encounter Care Teams Client Experience Specialist Relationship Specialty Start Date End Date Dara Tavera FNP [address] [place] [phone] PCP - General NURSE PRACTITIONER 10/13/18 documented as of this encounter
--- OUTSIDE RECORDS SUMMARY | 2025-05-11 21:57 | XMS_ITS | Encounter Summary ---
Author Organization [facility] Address [address] [place] [address] Care Team Providers Care Field Marketer Name Role Phone Dara Tavera Primary Care Provider [phone] Encounter Details Date Type Department Care Team (Latest Contact Info) Description 07/02/1997 Outpatient Historical [facility] Roney Arora MD [address] [facility] [address] [place] [address] Unspecified osteomyelitis, other specified site (Primary Dx) Social History Tobacco Use Types Packs/Day Years Used Date Smoking Tobacco: Never Assessed Comments Unknown Sex and Gender Information Value Date Recorded Sex Assigned at Not on file Legal Sex Female 5:22 AM ESTATE MANAGER Gender Identity Not on file Sexual Orientation Not on file documented as of this encounter Plan of Treatment Not on file documented as of this encounter Visit Diagnoses Diagnosis Unspecified osteomyelitis, other specified site- Primary documented in this encounter Additional Health Concerns Infection Onset Date Last Indicated Resolved Time VRE Comment:Urine 10/30/13 Resolved 11/04/2013 11/04/2013 8 10:33 AM ESTATE MANAGER R/O COVID-19 12/25/2019 12/25/2019 12/26/2019 2:46 PM CDT R/O COVID-19 05/09/2020 05/09/2020 05/09/2020 12:1 7 PM ESTATE MANAGER documented as of this encounter Care Teams Field Marketer Relationship Specialty Start Date End Date Dara Tavera FNP [address] [place] [phone] PCP - General NURSE PRACTITIONER 10/13/18 documented as of this encounter
--- OUTSIDE RECORDS SUMMARY | 2025-05-11 21:57 | XMS_ITS | Encounter Summary ---
Author Organization [facility] Address [address] [place] [address] Care Team Providers Care System Software Developer Name Role Phone Dara Tavera Primary Care Provider Encounter Details Date Type Department Care Team (Late st Contact Info) Description 07/20/[address] [facility] [place] [address] [facility] [address] [place] [address] Prasad Carpenter MD NO ADDRESS ON FILE Social History Tobacco Use Types Packs/Day Years Used Date Smoking Tobacco: Never Assessed Comments Unknown Sex and Gender Information Value Date Recorded Sex Assigned at Not on file Legal Sex Female 5:22 AM HOME THERAPY TEACHER Gender Identity Not on file Sexual Orientation Not on file documented as of this encounter Plan of Treatment Not on file documented as of this encounter Visit Diagnoses Not on filedocumented in this encounter Additional Health Concerns Infection Onset Date Last Indicated Resolved Time VRE Comment:Urine 10/30/13 Resolved 11/04/2013 11/04/2013 8 10:33 AM HOME THERAPY TEACHER R/O COVID-19 12/25/2019 12/25/2019 12/26/2019 2:46 PM CDT R/O COVID-19 05/09/2020 05/09/2020 05/09/2020 12:1 7 PM HOME THERAPY TEACHER documented as of this encounter Care Teams System Software Developer Relationship Specialty Start Date End Date Dara Tavera FNP [address] [place] [phone] PCP - General NURSE PRACTITIONER 10/13/18 documented as of this encounter
--- OUTSIDE RECORDS SUMMARY | 2025-05-11 21:57 | XMS_ITS | Encounter Summary ---
Author Organization [facility] Address [address] [place] [address] Care Team Providers Care Private Branch Exchange Operator Name Role Phone Dara Tavera Primary Care Provider Encounter Details Date Type Department Care Team (Late st Contact Info) Description 05/08/[address] [facility] Emergency Department [address] [place] [address] [place], NO ADDRESS ON FILE Shortness of Breath (Primary Dx) Social History Tobacco Use Types Packs/Day Years Used Date Smoking Tobacco: Never Assessed Comments Unknown Sex and Gender Information Value Date Recorded Sex Assigned at Not on file Legal Sex Female 5:22 AM CLOUD INFRASTRUCTURE ARCHITECT Gender Identity Not on file Sexual Orientation Not on file documented as of this encounter Plan of Treatment Not on file documented as of this encounter Visit Diagnoses Diagnosis Shortness of breath- Primary documented in this encounter Additional Health Concerns Infection Onset Date Last Indicated Resolved Time VRE Comment:Urine 10/30/13 Resolved 11/04/2013 11/04/2013 8 10:33 AM CLOUD INFRASTRUCTURE ARCHITECT R/O COVID-19 12/25/2019 12/25/2019 12/26/2019 2:46 PM CDT R/O COVID-19 05/09/2020 05/09/2020 05/09/2020 12:1 7 PM CLOUD INFRASTRUCTURE ARCHITECT documented as of this encounter Care Teams Private Branch Exchange Operator Relationship Specialty Start Date End Date Dara Tavera FNP [address] [place] [address] PCP - General NURSE PRACTITIONER 10/13/18 documented as of this encounter
--- OUTSIDE RECORDS SUMMARY | 2025-05-11 21:57 | XMS_ITS | Encounter Summary ---
Author Organization [facility] Address [address] [facility] [address] [place]: [place] [address] Care Team Providers Care Sander And Polisher Name Role Phone Dara Tavera Primary Care Provider Encounter Details Date Type Department Care Team ([facility] Contact Info) Description 10/29/2001 Outpatient Historical Non-Staff, Physician NO ADDRESS ON FILE Social History Tobacco Use Types Packs/Day Years Used Date Smoking Tobacco: Never Assessed Comments Unknown Sex and Gender Information Value Date Recorded Sex Assigned at Not on file Legal Sex Female 5:22 AM CIVIL ENGINEER HELPER Gender Identity Not on file Sexual Orientation Not on file documented as of this encounter Plan of Treatment Not on file documented as of this encounter Visit Diagnoses Not on filedocumented in this encounter Additional Health Concerns Infection Onset Date Last Indicated Resolved Time VRE Comment:Urine 10/30/13 Resolved 11/04/2013 11/04/2013 8 10:33 AM CIVIL ENGINEER HELPER R/O COVID-19 12/25/2019 12/25/2019 12/26/2019 2:46 PM CDT R/O COVID-19 05/09/2020 05/09/2020 05/09/2020 12:1 7 PM CIVIL ENGINEER HELPER documented as of this encounter Care Teams Sander And Polisher Relationship Specialty Start Date End Date Dara Tavera FNP [address] [place] [phone] PCP - General NURSE PRACTITIONER 10/13/18 documented as of this encounter
--- OUTSIDE RECORDS SUMMARY | 2025-05-11 21:57 | XMS_ITS | Encounter Summary ---
Author Organization [facility] Address [address] [place] [address] Care Team Providers Care Feed Mixer Name Role Phone Dara Tavera AMANDEEP Primary Care Provider Encounter Details Date Type Department Care Team (Latest Contact Info) Description 04/20/2008 Outpatient Historical [facility] [address] [place] [address] AMBULANCE, [facility] Other Specified Cardiac Dysrhythmias; Unspecified Nonpsychotic [...] on file Legal Sex Female 5:22 AM MILKING WORKER Gender Identity Not on file Sexual [...] 10/30/13 Resolved 11/04/2013 11/04/2013 8 10:33 AM MILKING WORKER R/O COVID-19 12/25/2019 12/25/2019 12/26/2019 2:46 PM CDT R/O COVID-05/09/2020 05/09/2020 05/09/2020 12:1 7 PM MILKING WORKER documented as of this encounter Care Teams Feed Mixer Relationship Specialty Start Date End Date Dara Tavera FNP [address] [place] [phone] PCP - General NURSE PRACTITIONER 10/13/18 documented as of this encounter
--- OUTSIDE RECORDS SUMMARY | 2025-05-11 21:57 | XMS_ITS | Encounter Summary ---
Author Organization [facility] Address [address] [place] [address] Care Team Providers Care Wirer Helper Name Role Phone Dara Tavera Primary Care Provider Encounter Details Date Type Department Care Team (Late st Contact Info) Description 07/12/2007 Emergency [facility] Emergency Department [address] [place] [address] Ed, Physician NO ADDRESS ON FILE Oniel Sainz MD [address] [place] [address] Social History Tobacco Use Types Packs/Day Years Used Date Smoking Tobacco: Never Assessed Comments Unknown Sex and Gender Information Value Date Recorded Sex Assigned at Not on file Legal Sex Female 5:22 AM DINING ROOM COORDINATOR Gender Identity Not on file Sexual Orientation Not on file documented as of this encounter Plan of Treatment Not on file documented as of this encounter Visit Diagnoses Not on filedocumented in this encounter Additional Health Concerns Infection Onset Date Last Indicated Resolved Time VRE Comment:Urine 10/30/13 Resolved 11/04/2013 11/04/2013 8 10:33 AM DINING ROOM COORDINATOR R/O COVID-19 12/25/2019 12/25/2019 12/26/2019 2:46 PM CDT R/O COVID-19 05/09/2020 05/09/2020 05/09/2020 12:1 7 PM DINING ROOM COORDINATOR documented as of this encounter Care Teams Wirer Helper Relationship Specialty Start Date End Date Dara Tavera FNP [address] [place] [phone] PCP - General NURSE PRACTITIONER 10/13/18 documented as of this encounter
--- OUTSIDE RECORDS SUMMARY | 2025-05-11 21:57 | XMS_ITS | Encounter Summary ---
Author Organization [facility] Address [address] [place] [address] Care Team Providers Care Paint Technician Name Role Phone Dara Tavera AMANDEEP Primary Care Provider Encounter Details Date Type Department Care Team (Latest Contact Info) Description 07/30/1997 Outpatient Historical [facility] Roney Arora MD [address] [facility] [address] [place] [address] Bipolar I disorder, most recent episode (or current) unspecified (CMS/HCC) (Primary Dx); Unspecified osteomyelitis, other specified site; Nausea with vomiting Social History Tobacco Use Types Packs/Day Years Used Date Smoking Tobacco: Never Assessed Comments Unknown Sex and Gender Information Value Date Recorded Sex Assigned at Not on file Legal Sex Female 5:22 AM BIOINFORMATICS TECHNICIAN Gender Identity Not on file Sexual [...] 10/30/13 Resolved 11/04/2013 11/04/2013 8 10:33 AM BIOINFORMATICS TECHNICIAN R/O COVID-19 12/25/2019 12/25/2019 12/26/2019 2:46 PM CDT R/O COVID-19 05/09/2020 05/09/2020 05/09/2020 12:1 7 PM BIOINFORMATICS TECHNICIAN documented as of this encounter Care Teams Paint Technician Relationship Specialty Start Date End Date Dara Tavera FNP [address] [place] [address] PCP - General NURSE PRACTITIONER 10/13/18 documented as of this encounter
--- OUTSIDE RECORDS SUMMARY | 2025-05-11 21:57 | XMS_ITS | Encounter Summary ---
Author Organization [facility] Address [address] [place] [address] Care Team Providers Care Fruit Washer Name Role Phone Dara Tavera Primary Care Provider Encounter Details Date Type Department Care Team (Late st Contact Info) Description 08/11/2007 Emergency [facility] Emergency Department [address] [place] [address] Ed, Physician NO ADDRESS ON FILE Social History Tobacco Use Types Packs/Day Years Used Date Smoking Tobacco: Never Assessed Comments Unknown Sex and Gender Information Value Date Recorded Sex Assigned at Not on file Legal Sex Female 5:22 AM CORE SETTER Gender Identity Not on file Sexual Orientation Not on file documented as of this encounter Plan of Treatment Not on file documented as of this encounter Visit Diagnoses Not on filedocumented in this encounter Additional Health Concerns Infection Onset Date Last Indicated Resolved Time VRE Comment:Urine 10/30/13 Resolved 11/04/2013 11/04/2013 8 10:33 AM CORE SETTER R/O COVID-19 12/25/2019 12/25/2019 12/26/2019 2:46 PM CDT R/O COVID-19 05/09/2020 05/09/2020 05/09/2020 12:1 7 PM CORE SETTER documented as of this encounter Care Teams Fruit Washer Relationship Specialty Start Date End Date Dara Tavera FNP [address] [place] [phone] PCP - General NURSE PRACTITIONER 10/13/18 documented as of this encounter
--- OUTSIDE RECORDS SUMMARY | 2025-05-11 21:57 | XMS_ITS | Encounter Summary ---
Author Organization [facility] Address [address] [place] [address] Care Team Providers Care Regulatory Scientist Name Role Phone Dara Tavera AMANDEEP Primary Care Provider Encounter Details Date Type Department Care Team (Late st Contact Info) Description 08/11/2007 Emergency [facility] Emergency Department [address] [place] [address] Ed, Physician NO ADDRESS ON FILE mAaury De La Rosa MD NO ADDRESS ON FILE Social History Tobacco Use Types Packs/Day Years Used Date Smoking Tobacco: Never Assessed Comments Unknown Sex and Gender Information Value Date Recorded Sex Assigned at Not on file Legal Sex Female 5:22 AM STONE BREAKER Gender Identity Not on file Sexual Orientation Not on file documented as of this encounter Plan of Treatment Not on file documented as of this encounter Procedures Procedure Name Priority Date/Time Associated Diagnosis Comments XR ABDOMEN 1 VW Routine 08/12/2007 4:46 AM STONE BREAKER CBC WITH DIFFERENTIAL Stat 08/12/2007 4:19 AM STONE BREAKER LIPASE Stat 08/12/2007 4:19 AM STONE BREAKER COMPREHENSIVE METABOLIC PANEL Stat 08/12/2007 4:19 AM STONE BREAKER URINALYSIS W/REFLEX MICROSCOPIC Stat 08/12/2007 3:10 AM STONE BREAKER documented in this encounter Results * XR ABDOMEN 1 VW (08/12/2007 4:46 AM STONE BREAKER) Anatomical Region Laterality Modality Abdomen Other 08/12/2007 4:46 AM STONE BREAKER Narrative 08/12/2007 4:46 AM STONE BREAKER Exam: KUB Date/Time of Exam: Aug 12, [...] * CBC WITH DIFFERENTIAL (08/12/2007 4:19 AM STONE BREAKER) RBC 4.56 4.20 - 5.40 Mil/ul [facility] MCHC 33.8 30.0 - 35.0 g/dL [facility] LYMPHOCYTE ABSOLUTE 2.2 1.2 - 4.0 K/ul [facility] LYMPHOCYTES 25.6 24.0 - 44.0 % [facility] MCV 86.4 84.0 - 103.0 Fl [facility] BASOPHILS 0.7 0.0 - 1.0 % [facility] MPV 9.9 8.9 - 12.8 Fl [facility] BASOPHILS ABSOLUTE 0.1 0.0 - 0.2 K/ul [facility] HEMOGLOBIN 13.3 12.0 - 16.0 g/dL [facility] MONOCYTES 6.3 2.0 - 10.0 % [facility] RDW 14.1 11.0 - 14.5 % [facility] MONOCYTE ABSOLUTE 0.5 0.1 - 0.6 K/ul [facility] WBC 8.6 4.5 - 11.0 K/ul [facility] NEUTROPHILS 65.3 42.2 - 75.2 % [facility] MCH 29.2 27.0 - 34.0 pg [facility] NEUTROPHIL ABSOLUTE 5.6 2.0 - 8.0 K/ul [facility] HEMATOCRIT 39.4 36.0 - 46.0 % [facility] PLATELETS 233 140 - 440 K/ul [facility] EOSINOPHIL ABSOLUTE 0.2 0.0 - 0.7 K/ul [facility] EOSINOPHILS 2.1 0.0 - 7.0 % [facility] Blood specimen (specimen) 08/12/2007 4:19 AM STONE BREAKER 08/12/2007 4:22 AM STONE BREAKER us Amaury De La Rosa MD HEMATOLOGY ORDERABLES Final Resu lt [facility] [address] [place] [address] * (ABNORMAL) COMPREHENSIVE METABOLIC PANEL (08/12/2007 4:19 AM STONE BREAKER) GLUCOSE 99 70 - 110 mg/dL [facility] ALKALINE PHOSPHATASE 134(H) 25 - 100 U/L [facility] CHLORIDE 108 95 - 110 mEq/L [facility] ALBUMIN/GLOBULIN RATIO 1.4 1.0 - 2.3 [facility] TOTAL PROTEIN 7.8 6.3 - 8.2 g/dL [facility] SODIUM 136 136 - 145 mEq/L [facility] BILIRUBIN TOTAL 0.2(L) 0.3 - 1.2 mg/dL [facility] BUN 20(H) 7 - 17 mg/dL [facility] CO2 23 22 - 32 mmol/l [facility] ANION GAP 9 9 - 20 mEq/L [facility] AST 20 8 - 33 U/L [facility] POTASSIUM 4.1 3.5 - 5.0 mEq/L [facility] GLOBULIN (CALC) 3.3 2.4 - 3.9 g/dL [facility] ALBUMIN 4.5 3.5 - 5.0 g/dL [facility] CREATININE 0.8 0.7 - 1.2 mg/dL [facility] ALT 24 4 - 36 IU/L [facility] CALCIUM 9.7 8.4 - 10.5 mg/dL [facility] OSMOLALITY, CALCULATED 283 275 - 295 mOsm/Kg [facility] Blood specimen (specimen) 08/12/2007 4:19 AM STONE BREAKER 08/12/2007 4:22 AM STONE BREAKER us Amaury De La Rosa MD CHEMISTRY ORDERABLES Final Resul t Performing Organization Address [facility] de Phone Number [facility] [address] [place] [address] * LIPASE (08/12/2007 4:19 AM STONE BREAKER) Pathologist [facility] LIPASE 49 6 - 51 U/L [facility] Blood specimen (specimen) 08/12/2007 4:19 AM STONE BREAKER 08/12/2007 4:22 AM STONE BREAKER Amaury De La Rosa MD CHEMISTRY ORDERABLES Final Resul t Performing Organization Address [facility] Co de Phone Number [facility] [address] [place] [address] * URINALYSIS (08/12/2007 3:10 AM STONE BREAKER) CLARITY UA Clear Clear [facility] GLUCOSE UA NEGATIVE NEGATIVE [facility] SPECIFIC GRAVITY UA 1.010 <=1.005 [facility] PH UA 7.0 5.0 - 9.0 [facility] BILIRUBIN UA NEGATIVE NEGATIVE [facility] LEUKOCYTE ESTERASE UA NEGATIVE NEGATIVE [facility] MICRO EXAM No No [facility] KETONES UA NEGATIVE NEGATIVE [facility] COLOR UA Yellow Straw [facility] PROTEIN UA NEGATIVE NEGATIVE [facility] BLOOD UA NEGATIVE NEGATIVE [facility] NITRITE UA NEGATIVE NEGATIVE [facility] UROBILINOGEN UA 0.2 0.2 [facility] Urine, clean catch 08/12/2007 3:10 AM STONE BREAKER 08/12/2007 3:12 AM STONE BREAKER us Physician Sj Ed URINE ORDERABLES Final Result Performing Organization Address City/State/[facility] Co de Phone Number [facility] [address] [place] [address] documented in this encounter Visit Diagnoses Not on filedocumented in this encounter Additional Health Concerns Infection Onset Date Last Indicated Resolved Time VRE Comment:Urine 10/30/13 Resolved 11/04/2013 11/04/2013 8 10:33 AM STONE BREAKER R/O COVID-19 12/25/2019 12/25/2019 12/26/2019 2:46 PM CDT R/O COVID-19 05/09/2020 05/09/2020 05/09/2020 12:1 7 PM STONE BREAKER documented as of this encounter Care Teams Regulatory Scientist Relationship Specialty Start Date End Date Dara Tavera FNP [address] [place] [address] PCP - General NURSE PRACTITIONER 10/13/18 documented as of this encounter
--- OUTSIDE RECORDS SUMMARY | 2025-05-11 21:57 | XMS_ITS | Encounter Summary ---
Author Organization [facility] Address [address] [place] [address] Care Team Providers Care Storage Manager Name Role Phone Dara Tavera AMANDEEP Primary Care Provider Encounter Details Date Type Department Care Team (Late st Contact Info) Description 08/21/[address] [facility] Emergency Department [address] [place] [address] Ed, Physician NO ADDRESS ON FILE Flex Ricks MD NO ADDRESS ON FILE Social History Tobacco Use Types Packs/Day Years Used Date Smoking Tobacco: Never Assessed Comments Unknown Sex and Gender Information Value Date Recorded Sex Assigned at Not on file Legal Sex Female 5:22 AM METER TESTER POLYPHASE Gender Identity Not on file Sexual Orientation Not on file documented as of this encounter Plan of Treatment Not on file documented as of this encounter Procedures Procedure Name Priority Date/Time Associated Diagnosis Comments CT ABDOMEN PELVIS WO CONTRAST Routine 08/21/2007 11:56 PM METER TESTER POLYPHASE CBC WITH DIFFERENTIAL Stat 08/21/2007 11:44 PM METER TESTER POLYPHASE BASIC METABOLIC PANEL Stat 08/21/2007 11:44 PM METER TESTER POLYPHASE URINALYSIS W/REFLEX MICROSCOPIC Stat 08/21/2007 10:16 PM METER TESTER POLYPHASE documented in this encounter Results * CT ABDOMEN PELVIS WO CONTRAST (08/21/2007 11:56 PM METER TESTER POLYPHASE) Anatomical Region Laterality Modality Abdomen Other 08/21/2007 11:5 6 PM METER TESTER POLYPHASE Narrative 08/22/2007 12:47 AM METER TESTER POLYPHASE CT Scan For Renal Colic: Date: 08/21/2007 [...] * CBC WITH DIFFERENTIAL (08/21/2007 11:44 PM METER TESTER POLYPHASE) LYMPHOCYTE ABSOLUTE 2.5 1.2 - 4.0 K/ul [facility] LYMPHOCYTES 24.0 24.0 - 44.0 % [facility] MCV 88.3 84.0 - 103.0 Fl [facility] BASOPHILS 0.6 0.0 - 1.0 % [facility] MPV 9.8 8.9 - 12.8 Fl [facility] BASOPHILS ABSOLUTE 0.1 0.0 - 0.2 K/ul [facility] HEMOGLOBIN 12.6 12.0 - 16.0 g/dL [facility] MONOCYTES 4.8 2.0 - 10.0 % [facility] RDW 14.0 11.0 - 14.5 % [facility] MONOCYTE ABSOLUTE 0.5 0.1 - 0.6 K/ul [facility] WBC 10.5 4.5 - 11.0 K/ul [facility] NEUTROPHILS 68.9 42.2 - 75.2 % [facility] MCH 28.9 27.0 - 34.0 pg [facility] NEUTROPHIL ABSOLUTE 7.2 2.0 - 8.0 K/ul [facility] HEMATOCRIT 38.5 36.0 - 46.0 % [facility] PLATELETS 284 140 - 440 K/ul [facility] EOSINOPHIL ABSOLUTE 0.2 0.0 - 0.7 K/ul [facility] EOSINOPHILS 1.7 0.0 - 7.0 % [facility] RBC 4.36 4.20 - 5.40 Mil/ul [facility] MCHC 32.7 30.0 - 35.0 g/dL [facility] Blood specimen (specimen) 08/21/2007 11:44 PM METER TESTER POLYPHASE 08/21/2007 11:49 PM METER TESTER POLYPHASE us Flex Ricks MD HEMATOLOGY ORDERABLES Destiny ricks Result [facility] [address] [place] [address] * (ABNORMAL) BASIC METABOLIC PANEL (08/21/2007 11:44 PM METER TESTER POLYPHASE) CREATININE 0.8 0.7 - 1.2 mg/dL [facility] CALCIUM 9.8 8.4 - 10.5 mg/dL [facility] GLUCOSE 94 70 - 110 mg/dL [facility] CHLORIDE 112(H) 95 - 110 mEq/L [facility] SODIUM 139 136 - 145 mEq/L [facility] ANION GAP 11 9 - 20 mEq/L [facility] BUN 16 7 - 17 mg/dL [facility] CO2 20(L) 22 - 32 mmol/l [facility] OSMOLALITY, CALCULATED 286 275 - 295 mOsm/Kg [facility] POTASSIUM 3.6 3.5 - 5.0 mEq/L [facility] Blood specimen (specimen) 08/21/2007 11:44 PM METER TESTER POLYPHASE 08/21/2007 11:49 PM METER TESTER POLYPHASE Flex Ricks MD CHEMISTRY ORDERABLES Final Result [facility] [address] [place] [address] * URINALYSIS (08/21/2007 10:16 PM METER TESTER POLYPHASE) Pathologist [facility] CLARITY UA Clear Clear [facility] GLUCOSE UA NEGATIVE NEGATIVE [facility] SPECIFIC GRAVITY UA 1.025 <=1.005 [facility] PH UA 6.5 5.0 - 9.0 [facility] BILIRUBIN UA NEGATIVE NEGATIVE [facility] LEUKOCYTE ESTERASE UA NEGATIVE NEGATIVE [facility] MICRO EXAM No No [facility] KETONES UA NEGATIVE NEGATIVE [facility] COLOR UA Yellow Straw [facility] PROTEIN UA NEGATIVE NEGATIVE [facility] BLOOD UA NEGATIVE NEGATIVE [facility] NITRITE UA NEGATIVE NEGATIVE [facility] UROBILINOGEN UA 0.2 0.2 [facility] Urine, clean catch 08/21/2007 10:16 PM METER TESTER POLYPHASE 08/21/2007 10:16 PM METER TESTER POLYPHASE us Physician Sj Ed URINE ORDERABLES Final Result Performing Organization Address City/State/[facility] Co de Phone Number [facility] [address] [place] [address] documented in this encounter Visit Diagnoses Not on filedocumented in this encounter Additional Health Concerns Infection Onset Date Last Indicated Resolved Time VRE Comment:Urine 10/30/13 Resolved 11/04/2013 11/04/2013 8 10:33 AM METER TESTER POLYPHASE R/O COVID-19 12/25/2019 12/25/2019 12/26/2019 2:46 PM CDT R/O COVID-19 05/09/2020 05/09/2020 05/09/2020 12:1 7 PM METER TESTER POLYPHASE documented as of this encounter Care Teams Storage Manager Relationship Specialty Start Date End Date Dara Taevra FNP [address] [place] [phone] PCP - General NURSE PRACTITIONER 10/13/18 documented as of this encounter
--- OUTSIDE RECORDS SUMMARY | 2025-05-11 21:57 | XMS_ITS | Encounter Summary ---
Author Organization [facility] Address [address] [place] [address] Care Team Providers Care Senior Production Planner Name Role Phone Dara Tavera Primary Care Provider [phone] Encounter Details Date Type Department Care Team (Late st Contact Info) Description 05/12/2007 Emergency [facility] Emergency Department [address] [place] [address] Isaac Kovacs PA [address] [place], [place] [id number] Neck Sprain and Strain (Primary Dx) Social History Tobacco Use Types Packs/Day Years Used Date Smoking Tobacco: Never Assessed Comments Unknown Sex and Gender Information Value Date Recorded Sex Assigned at Not on file Legal Sex Female 5:22 AM CHILD ADOLESCENT PSYCHIATRIST Gender Identity Not on file Sexual Orientation Not on file documented as of this encounter Plan of Treatment Not on file documented as of this encounter Visit Diagnoses Diagnosis Sprain of neck- Primary documented in this encounter Additional Health Concerns Infection Onset Date Last Indicated Resolved Time VRE Comment:Urine 10/30/13 Resolved 11/04/2013 11/04/2013 8 10:33 AM CHILD ADOLESCENT PSYCHIATRIST R/O COVID-19 12/25/2019 12/25/2019 12/26/2019 2:46 PM CDT R/O COVID-19 05/09/2020 05/09/2020 05/09/2020 12:1 7 PM CHILD ADOLESCENT PSYCHIATRIST documented as of this encounter Care Teams Senior Production Planner Relationship Specialty Start Date End Date Dara Tavera FNP [address] [place] [phone] PCP - General NURSE PRACTITIONER 10/13/18 documented as of this encounter
--- OUTSIDE RECORDS SUMMARY | 2025-05-11 21:57 | XMS_ITS | Encounter Summary ---
Author Organization [facility] Address [address] [place] [address] Care Team Providers Care Railroad Crane Operator Name Role Phone Dara Tavera Primary Care Provider Encounter Details Date Type Department Care Team (Latest Contact Info) Description 08/19/2003 Outpatient Historical [facility] Urology- [address]tr[address], [address] [place] [address] Hossein Blair MD NO ADDRESS ON FILE FEMALE STRESS INCONTINENCE (Primary Dx); REMOVAL INT FIXATION DEVICE Social History Tobacco Use Types Packs/Day Years Used Date Smoking Tobacco: Never Assessed Comments Unknown Sex and Gender Information Value Date Recorded Sex Assigned at Not on file Legal Sex Female 5:22 AM ADMINISTRATIVE OFFICE MANAGER Gender Identity Not on file Sexual [...] 10/30/13 Resolved 11/04/2013 11/04/2013 8 10:33 AM ADMINISTRATIVE OFFICE MANAGER R/O COVID-19 12/25/2019 12/25/2019 12/26/2019 2:46 PM CDT R/O COVID-19 05/09/2020 05/09/2020 05/09/2020 12:1 7 PM ADMINISTRATIVE OFFICE MANAGER documented as of this encounter Care Teams Railroad Crane Operator Relationship Specialty Start Date End Date Dara Tavera FNP [address] [place] [phone] PCP - General NURSE PRACTITIONER 10/13/18 documented as of this encounter
--- OUTSIDE RECORDS SUMMARY | 2025-05-11 21:57 | XMS_ITS | Encounter Summary ---
Author Organization [email or web address] Address [address] [place] [address] Care Team Providers Care Account Technician Name Role Phone Dara Tavera Primary Care Provider [phone] Encounter Details Date Type Department Care Team (Late st Contact Info) Description 07/31/1997 Outpatient Historical [facility] Social History Tobacco Use Types Packs/Day Years Used Date Smoking Tobacco: Never Assessed Comments Unknown Sex and Gender Information Value Date Recorded Sex Assigned at Not on file Legal Sex Female 5:22 AM TRANSACTIONAL ATTORNEY Gender Identity Not on file Sexual Orientation Not on file documented as of this encounter Plan of Treatment Not on file documented as of this encounter Visit Diagnoses Not on filedocumented in this encounter Additional Health Concerns Infection Onset Date Last Indicated Resolved Time VRE Comment:Urine 10/30/13 Resolved 11/04/2013 11/04/2013 8 10:33 AM TRANSACTIONAL ATTORNEY R/O COVID-19 12/25/2019 12/25/2019 12/26/2019 2:46 PM CDT R/O COVID-19 05/09/2020 05/09/2020 05/09/2020 12:1 7 PM TRANSACTIONAL ATTORNEY documented as of this encounter Care Teams Account Technician Relationship Specialty Start Date End Date Dara Tavera FNP [address] [place] [phone] PCP - General NURSE PRACTITIONER 10/13/18 documented as of this encounter
--- OUTSIDE RECORDS SUMMARY | 2025-05-11 21:57 | XMS_ITS | Encounter Summary ---
Author Organization [facility] Address [address] [place] [address] Care Team Providers Care Team Driver Name Role Phone Dara Tavera Primary Care Provider Encounter Details Date Type Department Care Team (Latest Contact Info) Description 05/22/2003 Outpatient Historical [facility] Urology- [address]tr[address], [address] [place] [address] Hossein Blair MD NO ADDRESS ON FILE FB bladder/urethra (Primary Dx); URGE & STRESS MIXED INCONTINENCE Social History Tobacco Use Types Packs/Day Years Used Date Smoking Tobacco: Never Assessed Comments Unknown Sex and Gender Information Value Date Recorded Sex Assigned at Not on file Legal Sex Female 5:22 AM GANG SUPERVISOR Gender Identity Not on file Sexual [...] 10/30/13 Resolved 11/04/2013 11/04/2013 8 10:33 AM GANG SUPERVISOR R/O COVID-19 12/25/2019 12/25/2019 12/26/2019 2:46 PM CDT R/O COVID-19 05/09/2020 05/09/2020 05/09/2020 12:1 7 PM GANG SUPERVISOR documented as of this encounter Care Teams Team Driver Relationship Specialty Start Date End Date Dara Tavera FNP [address] [place] [phone] PCP - General NURSE PRACTITIONER 10/13/18 documented as of this encounter
--- OUTSIDE RECORDS SUMMARY | 2025-05-11 21:57 | XMS_ITS | Encounter Summary ---
Author Organization [facility] Address [address] [place] [address] Care Team Providers Care Interventional Radiology Rn Name Role Phone Dara Tavera Primary Care Provider Encounter Details Date Type Department Care Team (Latest Contact Info) Description 03/07/2019 Ancillary Orders [facility] Centralized Scheduling [address] [place] [address] Dara Tavera FNP [address] [place] [address] Screening breast examination Social History Tobacco Use Types Packs/Day Years Used Date Smoking Tobacco: Every Day Cigarettes Smokeless Tobacco: Never Comments:2 cigarettes daily Alcohol Use Standard Drinks/Week Comments No 0 (1 standard drink = 0.6 oz pur e alcohol) Comments No Sex and Gender Information Value Date Recorded Sex Assigned at Not on file Legal Sex Female 5:22 AM OAKES MACHINE OPERATOR Gender Identity Not on file [...] COVID-19 05/09/2020 05/09/2020 05/09/2020 12:1 7 PM OAKES MACHINE OPERATOR documented as of this encounter Care Teams Interventional Radiology Rn Relationship Specialty Start Date End Date Dara Tavera FNP [address] [place] [phone] PCP - General NURSE PRACTITIONER 10/13/18 documented as of this encounter
--- OUTSIDE RECORDS SUMMARY | 2025-05-11 21:57 | XMS_ITS | Encounter Summary ---
Author Organization [facility] Address [address] [place] [address] Care Team Providers Care Clothing Patternmaker Name Role Phone Dara Tavera AMANDEEP Primary Care Provider Encounter Details Date Type Department Care Team (Latest Contact Info) Description 04/22/2008 Outpatient Historical [facility] [address] [place] [address] AMBULANCE, [facility] Aphasia; Unspecified Tachycardia; Chronic Airway [...] on file Legal Sex Female 5:22 AM EXHAUST MACHINE OPERATOR Gender Identity Not on file [...] 10/30/13 Resolved 11/04/2013 11/04/2013 8 10:33 AM EXHAUST MACHINE OPERATOR R/O COVID-19 12/25/2019 12/25/2019 12/26/2019 2:46 PM CDT R/O COVID-19 05/09/2020 05/09/2020 05/09/2020 12:1 7 PM EXHAUST MACHINE OPERATOR documented as of this encounter Care Teams Clothing Patternmaker Relationship Specialty Start Date End Date Dara Tavera FNP [address] [place] [phone] PCP - General NURSE PRACTITIONER 10/13/18 documented as of this encounter
--- OUTSIDE RECORDS SUMMARY | 2025-05-11 21:57 | XMS_ITS | Encounter Summary ---
Author Organization [facility] Address [address] [place] [address] Care Team Providers Care Vba Programmer Name Role Phone Dara Tavera Primary Care Provider Encounter Details Date Type Department Care Team (Late st Contact Info) Description 11/04/2003 Outpatient Historical [facility] [address] [place] [address] Hood Kerr Jr., MD [address] [place] [address] Social History Tobacco Use Types Packs/Day Years Used Date Smoking Tobacco: Never Assessed Comments Unknown Sex and Gender Information Value Date Recorded Sex Assigned at Not on file Legal Sex Female 5:22 AM NURSE PARALEGAL Gender Identity Not on file Sexual Orientation Not on file documented as of this encounter Plan of Treatment Not on file documented as of this encounter Visit Diagnoses Not on filedocumented in this encounter Additional Health Concerns Infection Onset Date Last Indicated Resolved Time VRE Comment:Urine 10/30/13 Resolved 11/04/2013 11/04/2013 8 10:33 AM NURSE PARALEGAL R/O COVID-19 12/25/2019 12/25/2019 12/26/2019 2:46 PM CDT R/O COVID-19 05/09/2020 05/09/2020 05/09/2020 12:1 7 PM NURSE PARALEGAL documented as of this encounter Care Teams Vba Programmer Relationship Specialty Start Date End Date Dara Tavera FNP [address] [place] [phone] PCP - General NURSE PRACTITIONER 10/13/18 documented as of this encounter
--- OUTSIDE RECORDS SUMMARY | 2025-05-11 21:57 | XMS_ITS | Encounter Summary ---
Author Organization [facility] Address [address] [place] [address] Care Team Providers Care Stone Banker Name Role Phone Dara Tavera AMANDEEP Primary Care Provider Encounter Details Date Type Department Care Team (Late st Contact Info) Description 04/30/2007 Outpatient [facility] [address] [place] [address] AMBULANCE, [facility] Social History Tobacco Use Types Packs/Day Years Used Date Smoking Tobacco: Never Assessed Comments Unknown Sex and Gender Information Value Date Recorded Sex Assigned at Not on file Legal Sex Female 5:22 AM ASSOCIATE PROFESSOR OF BIBLICAL STUDIES Gender Identity Not on file Sexual Orientation Not on file documented as of this encounter Plan of Treatment Not on file documented as of this encounter Procedures Procedure Name Priority Date/Time Associated Diagnosis Comments CT ABDOMEN PELVIS W CONTRAST Routine 04/30/2007 8:07 PM ASSOCIATE PROFESSOR OF BIBLICAL STUDIES documented in this encounter Results * CT ABDOMEN PELVIS W CONTRAST (04/30/2007 8:07 PM ASSOCIATE PROFESSOR OF BIBLICAL STUDIES) Anatomical Region Laterality Modality Abdomen Other 04/30/2007 8:07 PM ASSOCIATE PROFESSOR OF BIBLICAL STUDIES Narrative 04/30/2007 8:07 PM ASSOCIATE PROFESSOR OF BIBLICAL STUDIES CT Scan Abdomen and Pelvis with contrast [...] 11/04/2013 8 10:33 AM ASSOCIATE PROFESSOR OF BIBLICAL STUDIES R/O COVID-19 12/25/2019 12/25/2019 12/26/2019 2:46 PM CDT R/O COVID-19 05/09/2020 05/09/2020 05/09/2020 12:1 7 PM ASSOCIATE PROFESSOR OF BIBLICAL STUDIES documented as of this encounter Care Teams Stone Banker Relationship Specialty Start Date End Date Dara Tavera FNP [address] [place] [address] PCP - General NURSE PRACTITIONER 10/13/18 documented as of this encounter
--- OUTSIDE RECORDS SUMMARY | 2025-05-11 21:57 | XMS_ITS | Encounter Summary ---
Author Organization [facility] Address [address] [place] [address] Care Team Providers Care Resident Manager Name Role Phone Dara Tavera Primary Care Provider Encounter Details Date Type Department Care Team (Latest Contact Info) Description 05/01/2007 Outpatient Historical [facility] Urology- [address] Entrance B, 3rd [place] [address] Mason West MD NO ADDRESS ON FILE Abdominal Pain, Unspecified Site (Primary Dx) Social History Tobacco Use Types Packs/Day Years Used Date Smoking Tobacco: Never Assessed Comments Unknown Sex and Gender Information Value Date Recorded Sex Assigned at Not on file Legal Sex Female 5:22 AM PRISON WARDEN Gender Identity Not on file Sexual Orientation Not on file documented as of this encounter Plan of Treatment Not on file documented as of this encounter Visit Diagnoses Diagnosis Abdominal pain, unspecified site- Primary documented in this encounter Additional Health Concerns Infection Onset Date Last Indicated Resolved Time VRE Comment:Urine 10/30/13 Resolved 11/04/2013 11/04/2013 8 10:33 AM PRISON WARDEN R/O COVID-19 12/25/2019 12/25/2019 12/26/2019 2:46 PM CDT R/O COVID-19 05/09/2020 05/09/2020 05/09/2020 12:1 7 PM PRISON WARDEN documented as of this encounter Care Teams Resident Manager Relationship Specialty Start Date End Date Dara Tavera FNP [address] [place] [phone] PCP - General NURSE PRACTITIONER 10/13/18 documented as of this encounter
--- OUTSIDE RECORDS SUMMARY | 2025-05-11 21:57 | XMS_ITS | Encounter Summary ---
Author Organization [facility] Address [address] [place] [address] Care Team Providers Care Stripper Machine Operator Name Role Phone Dara Tavera Primary Care Provider Encounter Details Date Type Department Care Team (Late st Contact Info) Description 03/05/2008 Outpatient Historical [facility] Ambulance [address] [place] [address] AMBULANCE, [facility] Social History Tobacco Use Types Packs/Day Years Used Date Smoking Tobacco: Never Assessed Comments Unknown Sex and Gender Information Value Date Recorded Sex Assigned at Not on file Legal Sex Female 5:22 AM DENTAL TREATMENT COORDINATOR Gender Identity Not on file Sexual Orientation Not on file documented as of this encounter Plan of Treatment Not on file documented as of this encounter Visit Diagnoses Not on filedocumented in this encounter Additional Health Concerns Infection Onset Date Last Indicated Resolved Time VRE Comment:Urine 10/30/13 Resolved 11/04/2013 11/04/2013 8 10:33 AM DENTAL TREATMENT COORDINATOR R/O COVID-19 12/25/2019 12/25/2019 12/26/2019 2:46 PM CDT R/O COVID-19 05/09/2020 05/09/2020 05/09/2020 12:1 7 PM DENTAL TREATMENT COORDINATOR documented as of this encounter Care Teams Stripper Machine Operator Relationship Specialty Start Date End Date Dara Tavera FNP [address] [place] [phone] PCP - General NURSE PRACTITIONER 10/13/18 documented as of this encounter
--- OUTSIDE RECORDS SUMMARY | 2025-05-11 21:57 | XMS_ITS | Encounter Summary ---
Author Organization [facility] Address [address] [place] [address] Care Team Providers Care 1St Pressman Name Role Phone Dara Tavera MOTOR VEHICLE COMPLIANCE ANALYST Primary Care Provider [phone] Encounter Details Date Type Department Care Team (Latest Contact Info) Description 09/03/2003 Outpatient Historical [facility] Behavioral Clinical Services [address] [place] [address] Hood Kerr Jr., MD [address] [place] [address] SCHIZOAFFECTIVE-UNSP EC (CMS/HCC) (Primary Dx) Social History Tobacco Use Types Packs/Day Years Used Date Smoking Tobacco: Never Assessed Comments Unknown Sex and Gender Information Value Date Recorded Sex Assigned at Not on file Legal Sex Female 5:22 AM MANAGER PLANNING Gender Identity Not on file Sexual Orientation Not on file documented as of this encounter Plan of Treatment Not on file documented as of this encounter Visit Diagnoses Diagnosis Schizoaffective disorder, unspecified condition (CMS/HCC)- Primary Schizoaffective disorder, unspecified condition documented in this encounter Additional Health Concerns Infection Onset Date Last Indicated Resolved Time VRE Comment:Urine 10/30/13 Resolved 11/04/2013 11/04/2013 8 10:33 AM MANAGER PLANNING R/O COVID-19 12/25/2019 12/25/2019 12/26/2019 2:46 PM CDT R/O COVID-19 05/09/2020 05/09/2020 05/09/2020 12:1 7 PM MANAGER PLANNING documented as of this encounter Care Teams 1St Pressman Relationship Specialty Start Date End Date Dara Tavera FNP [address] [place] [phone] PCP - General NURSE PRACTITIONER 10/13/18 documented as of this encounter
--- OUTSIDE RECORDS SUMMARY | 2025-05-11 21:57 | XMS_ITS | Encounter Summary ---
Author Organization [facility] Address [address] [place] [address] Care Team Providers Care Contact Lens Blocker Name Role Phone Dara Tavera AMANDEEP Primary Care Provider Encounter Details Date Type Department Care Team (Latest Contact Info) Description 09/24/2002 Outpatient Historical [facility] Nose [facility] Th[facility] 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
--- OUTSIDE RECORDS SUMMARY | 2025-05-11 21:57 | XMS_ITS | Encounter Summary ---
Author Organization [facility] Address [address] [place] [address] Care Team Providers Care Retail Merchandising Manager Name Role Phone Dara Tavera Primary Care Provider Encounter Details Date Type Department Care Team (Late st Contact Info) Description 07/16/2003 Outpatient [facility] Imaging and Laboratory Services [address] [place] [address] Hossein Blair MD NO ADDRESS ON FILE BLADDER DISORDER NEC (Primary Dx) Social History Tobacco Use Types Packs/Day Years Used Date Smoking Tobacco: Never Assessed Comments Unknown Sex and Gender Information Value Date Recorded Sex Assigned at Not on file Legal Sex Female 5:[address] RESEARCHER Gender Identity Not on file Sexual Orientation Not on file documented as of this encounter Plan of Treatment Not on file documented as of this encounter Visit Diagnoses Diagnosis Other specified disorder of bladder- Primary documented in this encounter Additional Health Concerns Infection Onset Date Last Indicated Resolved Time VRE Comment:Urine 10/30/13 Resolved 11/04/2013 11/04/2013 8 10:[address] RESEARCHER R/O COVID-19 12/25/2019 12/25/2019 12/26/2019 2:46 PM CDT R/O COVID-19 05/09/2020 05/09/2020 05/09/2020 12:[address] RESEARCHER documented as of this encounter Care Teams Retail Merchandising Manager Relationship Specialty Start Date End Date Dara Tavera FNP [address] [place] [address] PCP - General NURSE PRACTITIONER 10/13/18 documented as of this encounter
--- OUTSIDE RECORDS SUMMARY | 2025-05-11 21:57 | XMS_ITS | Encounter Summary ---
Author Organization [facility] Address [address] [place] [address] Care Team Providers Care Toys Inspector Name Role Phone Dara Tavera Primary Care Provider Encounter Details Date Type Department Care Team (Latest Contact Info) Description 05/28/2003 Outpatient [facility] Behavioral Clinical Services [address] [place] [address] Oniel Upton MD NO ADDRESS ON FILE SCHIZOAFFECTIVE-UNSP EC ([facility]/HCC) (Primary Dx) Social History Tobacco Use Types Packs/Day Years Used Date Smoking Tobacco: Never Assessed Comments Unknown Sex and Gender Information Value Date Recorded Sex Assigned at Not on file Legal Sex Female 5:22 AM METER SHOP SUPERINTENDENT Gender Identity Not on file Sexual Orientation Not on file documented as of this encounter Plan of Treatment Not on file documented as of this encounter Visit Diagnoses Diagnosis Schizoaffective disorder, unspecified condition ([facility]/HCC)- Primary Schizoaffective disorder, unspecified condition documented in this encounter Additional Health Concerns Infection Onset Date Last Indicated Resolved Time VRE Comment:Urine 10/30/13 Resolved 11/04/2013 11/04/2013 8 10:33 AM METER SHOP SUPERINTENDENT R/O COVID-19 12/25/2019 12/25/2019 12/26/2019 2:46 PM CDT R/O COVID-19 05/09/2020 05/09/2020 05/09/2020 12:1 7 PM METER SHOP SUPERINTENDENT documented as of this encounter Care Teams Toys Inspector Relationship Specialty Start Date End Date Dara Tavera FNP [address] [place] [phone] PCP - General NURSE PRACTITIONER 10/13/18 documented as of this encounter
--- OUTSIDE RECORDS SUMMARY | 2025-05-11 21:57 | XMS_ITS | Encounter Summary ---
Author Organization [facility] Address [address] [place] [address] Care Team Providers Care Senior Web Engineer Name Role Phone Dara Tavera Primary Care Provider Encounter Details Date Type Department Care Team (Latest Contact Info) Description 09/25/2003 Outpatient Historical [facility] Urology- [address] Entrance B, 3rd [place] [address] Hossein Blair MD NO ADDRESS ON FILE URGE & STRESS MIXED INCONTINENCE (Primary Dx) Social History Tobacco Use Types Packs/Day Years Used Date Smoking Tobacco: Never Assessed Comments Unknown Sex and Gender Information Value Date Recorded Sex Assigned at Not on file Legal Sex Female 5:22 AM INCOME TAX AUDITOR Gender Identity Not on file Sexual Orientation Not on file documented as of this encounter Plan of Treatment Not on file documented as of this encounter Visit Diagnoses Diagnosis Mixed incontinence urge and stress (male)(female)- Primary documented in this encounter Additional Health Concerns Infection Onset Date Last Indicated Resolved Time VRE Comment:Urine 10/30/13 Resolved 11/04/2013 11/04/2013 8 10:33 AM INCOME TAX AUDITOR R/O COVID-19 12/25/2019 12/25/2019 12/26/2019 2:46 PM CDT R/O COVID-19 05/09/2020 05/09/2020 05/09/2020 12:1 7 PM INCOME TAX AUDITOR documented as of this encounter Care Teams Senior Web Engineer Relationship Specialty Start Date End Date Dara Tavera FNP [address] [place] [phone] PCP - General NURSE PRACTITIONER 10/13/18 documented as of this encounter
--- OUTSIDE RECORDS SUMMARY | 2025-05-11 21:57 | XMS_ITS | Encounter Summary ---
Author Organization [facility] Address [address] [place] [address] Care Team Providers Care Preventive Medicine Specialist Name Role Phone Dara Tavera Primary Care Provider Encounter Details Date Type Department Care Team (Late st Contact Info) Description 04/07/2008 Outpatient Historical [facility] Ambulance [address] [place] [address] AMBULANCE, [facility] Social History Tobacco Use Types Packs/Day Years Used Date Smoking Tobacco: Never Assessed Comments Unknown Sex and Gender Information Value Date Recorded Sex Assigned at Not on file Legal Sex Female 5:22 AM PROFESSOR OF PSYCHIATRY Gender Identity Not on file Sexual Orientation Not on file documented as of this encounter Plan of Treatment Not on file documented as of this encounter Visit Diagnoses Not on filedocumented in this encounter Additional Health Concerns Infection Onset Date Last Indicated Resolved Time VRE Comment:Urine 10/30/13 Resolved 11/04/2013 11/04/2013 8 10:33 AM PROFESSOR OF PSYCHIATRY R/O COVID-19 12/25/2019 12/25/2019 12/26/2019 2:46 PM CDT R/O COVID-19 05/09/2020 05/09/2020 05/09/2020 12:1 7 PM PROFESSOR OF PSYCHIATRY documented as of this encounter Care Teams Preventive Medicine Specialist Relationship Specialty Start Date End Date Dara Tavera FNP [address] [place] [phone] PCP - General NURSE PRACTITIONER 10/13/18 documented as of this encounter
--- OUTSIDE RECORDS SUMMARY | 2025-05-11 21:57 | XMS_ITS | Encounter Summary ---
Author Organization [facility] Address [address] [place] [address] Care Team Providers Care Javascript Web Developer Name Role Phone Dara Tavera AMANDEEP Primary Care Provider Encounter Details Date Type Department Care Team (Late st Contact Info) Description 07/22/2007 Emergency [facility] Emergency Department [address] [place] [address] Ed, Physician NO ADDRESS ON FILE Amaury De La Rosa MD NO ADDRESS ON FILE Social History Tobacco Use Types Packs/Day Years Used Date Smoking Tobacco: Never Assessed Comments Unknown Sex and Gender Information Value Date Recorded Sex Assigned at Not on file Legal Sex Female 5:22 AM DIRECTOR CLIENT SERVICES Gender Identity Not on file Sexual Orientation Not on file documented as of this encounter Plan of Treatment Not on file documented as of this encounter Procedures Procedure Name Priority Date/Time Associated Diagnosis Comments URINALYSIS MICROSCOPY ONLY Routine 07/22/2007 12:38 PM DIRECTOR CLIENT SERVICES URINALYSIS W/REFLEX MICROSCOPIC Routine 07/22/2007 12:38 PM DIRECTOR CLIENT SERVICES URINE CULTURE Stat 07/22/2007 12:38 PM DIRECTOR CLIENT SERVICES documented in this encounter Results * (ABNORMAL) URINALYSIS MICROSCOPY ONLY (07/22/2007 12:38 PM DIRECTOR CLIENT SERVICES) WBC URINE None Seen 0 - 2 INTERFACE SYSTEM RBC UA None Seen 0 - 2 INTERFACE SYSTEM HYALINE CAST None Seen 0 - 2 INTERFA CE SYSTEM BACTERIA UA Few(A) None Seen INTERFAC E SYSTEM 07/22/2007 12:3 8 PM DIRECTOR CLIENT SERVICES Amaury De La Rosa MD URINE ORDERABLES Edited Performing Organization Address [facility] Phone Number INTERFACE SYSTEM Refer to clinic/hospital department * (ABNORMAL) URINALYSIS (07/22/2007 12:38 PM DIRECTOR CLIENT SERVICES) COLOR UA Dark Yellow Straw INTERFAC E [...] No INTERFACE SYSTEM 07/22/2007 12:3 8 PM DIRECTOR CLIENT SERVICES Amaury De La Rosa MD URINE ORDERABLES Edited Performing Organization Address [facility] Phone Number INTERFACE SYSTEM Refer to clinic/hospital department * URINE CULTURE (07/22/2007 12:38 PM DIRECTOR CLIENT SERVICES) FINAL REPORT No growth INTERFA CE SYSTEM 07/22/2007 12:3 8 PM DIRECTOR CLIENT SERVICES 07/22/2007 3:01 PM DIRECTOR CLIENT SERVICES Result [facility] Amaury De La Rosa MD MICROBIOLOGY - GENERAL ORDERABLE S Final Result Performing Organization Address [facility] Phone Number INTERFACE SYSTEM Refer to clinic/hospital department documented in this encounter Visit Diagnoses Not on filedocumented in this encounter Additional Health Concerns Infection Onset Date Last Indicated Resolved Time VRE Comment:Urine 10/30/13 Resolved 11/04/2013 11/04/2013 8 10:33 AM DIRECTOR CLIENT SERVICES R/O COVID-19 12/25/2019 12/25/2019 12/26/2019 2:46 PM CDT R/O COVID-19 05/09/2020 05/09/2020 05/09/2020 12:1 7 PM DIRECTOR CLIENT SERVICES documented as of this encounter Care Teams Javascript Web Developer Relationship Specialty Start Date End Date Dara Tavera FNP [address] [place] [phone] PCP - General NURSE PRACTITIONER 10/13/18 documented as of this encounter
--- OUTSIDE RECORDS SUMMARY | 2025-05-11 21:57 | XMS_ITS | Encounter Summary ---
Author Organization [facility] Address [address] [place] [address] Care Team Providers Care Chief I Dispatcher Name Role Phone Dara Tavera AMANDEEP Primary Care Provider [phone] Encounter Details Date Type Department Care Team (Late st Contact Info) Description 04/26/2007 Emergency [facility] Emergency Department [address] [place] [address] Kenney Simmons MD [address] [place] [address] Abdominal Pain, Other Specified Site (Primary Dx) Social History Tobacco Use Types Packs/Day Years Used Date Smoking Tobacco: Never Assessed Comments Unknown Sex and Gender Information Value Date Recorded Sex Assigned at Not on file Legal Sex Female 5:22 AM VACUUM FURNACE OPERATOR Gender Identity Not on file Sexual Orientation Not on file documented as of this encounter Plan of Treatment Not on file documented as of this encounter Procedures Procedure Name Priority Date/Time Associated Diagnosis Comments URINALYSIS W/REFLEX MICROSCOPIC Routine 04/26/2007 11:48 PM VACUUM FURNACE OPERATOR CT URINARY CALCULI WO CONTRAST Routine 04/26/2007 11:22 PM VACUUM FURNACE OPERATOR documented in this encounter Results * (ABNORMAL) URINALYSIS (04/26/2007 11:48 PM VACUUM FURNACE OPERATOR) COLOR UA Yellow Straw INTERFACE SYSTEM [...] No INTERFACE SYSTEM 04/26/2007 11:4 8 PM VACUUM FURNACE OPERATOR us Physician Sj Ed URINE ORDERABLES Edited INTERFACE SYSTEM Refer to clinic/hospital department * CT RENAL COLIC WO CONT (04/26/2007 11:22 PM VACUUM FURNACE OPERATOR) Anatomical Region Laterality Modality Abdomen Other 04/26/2007 11:2 2 PM VACUUM FURNACE OPERATOR Narrative 04/26/2007 11:22 PM VACUUM FURNACE OPERATOR CT Scan For Renal Colic: Date: 04/27/2007History: [...] degenerative changes in the spine. 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 Impression: No urinary [...] 10/30/13 Resolved 11/04/2013 11/04/2013 8 10:33 AM VACUUM FURNACE OPERATOR R/O COVID-19 12/25/2019 12/25/2019 12/26/2019 2:46 PM CDT R/O COVID-19 05/09/2020 05/09/2020 05/09/2020 12:1 7 PM VACUUM FURNACE OPERATOR documented as of this encounter Care Teams Chief I Dispatcher Relationship Specialty Start Date End Date Dara Tavera FNP [address] [place] [phone] PCP - General NURSE PRACTITIONER 10/13/18 documented as of this encounter
--- OUTSIDE RECORDS SUMMARY | 2025-05-11 21:57 | XMS_ITS | Encounter Summary ---
Author Organization [facility] Address [address] [place] [address] Care Team Providers Care House Cleaner Supervisor Name Role Phone Dara Tavera AMANDEEP Primary Care Provider [phone] Encounter Details Date Type Department Care Team (Late st Contact Info) Description 08/05/2007 Emergency [facility] Emergency Department [address] [place] [address] Ed, Physician NO ADDRESS ON [...] file Legal Sex Female 5:22 AM AUTOMATIC LINE SET UP MECHANIC Gender Identity Not on file Sexual Orientation Not on file documented as of this encounter Plan of Treatment Not on file documented as of this encounter Procedures Procedure Name Priority Date/Time Associated Diagnosis Comments CT HEAD WO CONTRAST Routine 08/05/2007 6 :19 PM AUTOMATIC LINE SET UP MECHANIC XR CHEST PA AND LATERAL 2 VW Routine 08/05/2007 5:14 PM AUTOMATIC LINE SET UP MECHANIC CBC WITH DIFFERENTIAL Stat 08/05/2007 4:15 PM AUTOMATIC LINE SET UP MECHANIC BASIC METABOLIC PANEL Stat 08/05/2007 4:15 PM AUTOMATIC LINE SET UP MECHANIC documented in this encounter Results * CT HEAD WO CONTRAST (08/05/2007 6:19 PM AUTOMATIC LINE SET UP MECHANIC) Anatomical Region Laterality Modality Head Other 08/05/2007 6:19 PM AUTOMATIC LINE SET UP MECHANIC Narrative 08/05/2007 6:33 PM AUTOMATIC LINE SET UP MECHANIC The posterior fossa is grossly normal. The [...] CHEST PA AND LATERAL (08/05/2007 5:14 PM AUTOMATIC LINE SET UP MECHANIC) Anatomical Region Laterality Modality Chest Other 08/05/2007 5:14 PM AUTOMATIC LINE SET UP MECHANIC Narrative 08/05/2007 7:38 PM AUTOMATIC LINE SET UP MECHANIC The heart and mediastinum are normal in [...] (ABNORMAL) CBC WITH DIFFERENTIAL (08/05/2007 4:15 PM AUTOMATIC LINE SET UP MECHANIC) EOSINOPHIL ABSOLUTE 0.3 0.0 - 0.7 K/ul [facility] RBC 4.46 4.20 - 5.40 Mil/ul [facility] LYMPHOCYTES 31.5 24.0 - 44.0 % [facility] MCHC 33.2 30.0 - 35.0 g/dL [facility] LYMPHOCYTE ABSOLUTE 2.6 1.2 - 4.0 K/ul [facility] MCV 87.0 84.0 - 103.0 Fl [facility] MPV 9.8 8.9 - 12.8 Fl [facility] BASOPHILS ABSOLUTE 0.1 0.0 - 0.2 K/ul [facility] BASOPHILS 0.6 0.0 - 1.0 % [facility] HEMOGLOBIN 12.9 12.0 - 16.0 g/dL [facility] RDW 14.6(H) 11.0 - 14.5 % [facility] MONOCYTE ABSOLUTE 0.7(H) 0.1 - 0.6 K/ul [facility] MONOCYTES 7.7 2.0 - 10.0 % [facility] WBC 8.4 4.5 - 11.0 K/ul [facility] MCH 28.9 27.0 - 34.0 pg [facility] NEUTROPHIL ABSOLUTE 4.8 2.0 - 8.0 K/ul [facility] NEUTROPHILS 56.7 42.2 - 75.2 % [facility] HEMATOCRIT 38.8 36.0 - 46.0 % [facility] EOSINOPHILS 3.5 0.0 - 7.0 % [facility] PLATELETS 232 140 - 440 K/ul [facility] Blood specimen (specimen) 08/05/2007 4:15 PM AUTOMATIC LINE SET UP MECHANIC 08/05/2007 4:26 PM AUTOMATIC LINE SET UP MECHANIC Hemant Bran MD HEMATOLOGY ORDERABLES Destiny l Result Performing Organization Address [facility] de Phone Number [facility] [address] [place] [address] * (ABNORMAL) BASIC METABOLIC PANEL (08/05/2007 4:15 PM AUTOMATIC LINE SET UP MECHANIC) ANION GAP 9 9 - 20 mEq/L [facility] BUN 14 7 - 17 mg/dL [facility] CO2 19(L) 22 - 32 mmol/l [facility] OSMOLALITY, CALCULATED 290 275 - 295 mOsm/Kg [facility] POTASSIUM 3.9 3.5 - 5.0 mEq/L [facility] CREATININE 0.9 0.7 - 1.2 mg/dL [facility] CALCIUM 9.4 8.4 - 10.5 mg/dL [facility] GLUCOSE 105 70 - 110 mg/dL [facility] CHLORIDE 117(H) 95 - 110 mEq/L [facility] SODIUM 141 136 - 145 mEq/L [facility] Blood specimen (specimen) 08/05/2007 4:15 PM AUTOMATIC LINE SET UP MECHANIC 08/05/2007 4:26 PM AUTOMATIC LINE SET UP MECHANIC Hemant Bran MD CHEMISTRY ORDERABLES Final Result Performing Organization Address [facility] de Phone Number [facility] [address] [place] [address] documented in this encounter Visit Diagnoses Diagnosis [...] Resolved 11/04/2013 11/04/2013 8 10:33 AM AUTOMATIC LINE SET UP MECHANIC R/O COVID-19 12/25/2019 12/25/2019 12/26/2019 2:46 PM CDT R/O COVID-19 05/09/2020 05/09/2020 05/09/2020 12:1 7 PM AUTOMATIC LINE SET UP MECHANIC documented as of this encounter Care Teams House Cleaner Supervisor Relationship Specialty Start Date End Date Dara Tavera FNP [address] [place] [address] PCP - General NURSE PRACTITIONER 10/13/18 documented as of this encounter
--- OUTSIDE RECORDS SUMMARY | 2025-05-11 21:57 | XMS_ITS | Encounter Summary ---
Author Organization [facility] Address [address] [place] [address] Care Team Providers Care Riverine Assault Craft Crewman Name Role Phone Dara Tavera TRANSIT DRIVER Primary Care Provider Encounter Details Date [...] on file Legal Sex Female 5:22 AM HORTICULTURAL THERAPIST Gender Identity Not on file Sexual Orientation Not on file documented as of this encounter Progress Notes * Nam Calvo MD - 06/04/2008 9:18 AM CST NAME LATESHA WILHELM PATIENT # [id number] 1965 AGE 42Y PHYSICIAN NAM CALVO MD/[id number] ADMITTED 05/11/2008 DISMISSED 05/12/2008 REVISED DOCUMENT: 07/11/2008 [facility] DISCHARGE DIAGNOSES: 1. Drug overdose. SECONDARY DIAGNOSIS: [...] was activated. She was brought in to [facility] where she had head CT. Fortunately, [...] Econazole nitrate cream applied topically. NAM CALVO MD/[id number]/ [id number] REV/BL [id number] - 07/11/2008 - [facility] ICULTURAL THERAPIST documented in this encounter Plan of Treatment Not on file documented as of this encounter Procedures Procedure Name Priority Date/Time Associated Diagnosis Comments CARDIAC ENZYMES Routine 05/12/2008 4:45 AM HORTICULTURAL THERAPIST CBC WITH DIFFERENTIAL Routine 05/12/2008 4:45 AM HORTICULTURAL THERAPIST TSH Routine 05/12/2008 4:45 AM HORTICULTURAL THERAPIST COMPREHENSIVE METABOLIC PANEL Routine 05/12/2008 4:45 AM HORTICULTURAL THERAPIST CARDIAC ENZYMES Routine 05/11/2008 10:13 PM HORTICULTURAL THERAPIST D-DIMER Routine 05/11/2008 10:13 PM HORTICULTURAL THERAPIST CARDIAC ENZYMES Routine 05/11/2008 3:50 PM HORTICULTURAL THERAPIST XR CHEST PA OR AP 1 VW Routine 8 1:07 PM HORTICULTURAL THERAPIST MRSA CULTURE Routine 05/11/2008 10:37 AM HORTICULTURAL THERAPIST URINALYSIS W/REFLEX MICROSCOPIC Routine 05/11/2008 5:41 AM HORTICULTURAL THERAPIST documented in this encounter Results * (ABNORMAL) CBC WITH DIFFERENTIAL (05/12/2008 4:45 AM HORTICULTURAL THERAPIST) HEMATOCRIT 36.0 36.0 - 46.0 % [facility] EOSINOPHILS 5.1 0.0 - 7.0 % [facility] PLATELETS 207 140 - 440 K/ul [facility] EOSINOPHIL ABSOLUTE 0.4 0.0 - 0.7 K/ul [facility] RBC 3.92(L) 4.20 - 5.40 Mil/ul [facility] LYMPHOCYTES 35.9 24.0 - 44.0 % [facility] MCHC 33.3 30.0 - 35.0 g/dL [facility] LYMPHOCYTE ABSOLUTE 2.6 1.2 - 4.0 K/ul [facility] MCV 91.8 84.0 - 103.0 Fl [facility] MPV 10.4 8.9 - 12.8 Fl [facility] BASOPHILS ABSOLUTE 0.1 0.0 - 0.2 K/ul [facility] BASOPHILS 1.1(H) 0.0 - 1.0 % [facility] HEMOGLOBIN 12.0 12.0 - 16.0 g/dL [facility] RDW 14.4 11.0 - 14.5 % [facility] MONOCYTE ABSOLUTE 0.5 0.1 - 0.6 K/ul [facility] MONOCYTES 7.4 2.0 - 10.0 % [facility] WBC 7.2 4.5 - 11.0 K/ul [facility] MCH 30.6 27.0 - 34.0 pg [facility] NEUTROPHIL ABSOLUTE 3.6 2.0 - 8.0 K/ul [facility] NEUTROPHILS 50.5 42.2 - 75.2 % [facility] Blood specimen (specimen) 05/12/2008 4:45 AM HORTICULTURAL THERAPIST 05/12/2008 4:45 AM HORTICULTURAL THERAPIST Murphy Espitia MD HEMATOLOGY ORDERABLES Final Res ult Performing Organization Address [facility] de Phone Number INTERFACE SYSTEM Refer to clinic/hospital department [facility] CLIA# [id number] [address] [place] [address] * TSH (05/12/2008 4:45 AM HORTICULTURAL THERAPIST) TSH 2.120 0.350 - 5.500 uIU/ml [facility] Blood specimen (specimen) 05/12/2008 4:45 AM HORTICULTURAL THERAPIST 05/12/2008 4:45 AM HORTICULTURAL THERAPIST Murpyh Espitia MD CHEMISTRY ORDERABLES Final Resu lt Performing Organization Address [facility] de Phone Number INTERFACE SYSTEM Refer to clinic/hospital department [facility] CLIA# [id number] [address] [place] [address] * (ABNORMAL) COMPREHENSIVE METABOLIC PANEL (05/12/2008 4:45 AM HORTICULTURAL THERAPIST) CALCIUM 8.5 8.4 - 10.5 mg/dL [facility] CREATININE 0.8 0.7 - 1.2 mg/dL [facility] ALT 18 4 - 36 IU/L [facility] GLUCOSE 115(H) 70 - 110 mg/dL [facility] CHLORIDE 109 95 - 110 mEq/L [facility] OSMOLALITY, CALCULATED 282 275 - 295 mOsm/Kg [facility] ALKALINE PHOSPHATASE 110(H) 25 - 100 U/L [facility] GLOBULIN (CALC) 2.7 2.4 - 3.9 g/dL [facility] SODIUM 137 136 - 145 mEq/L [facility] BILIRUBIN TOTAL 0.1(L) 0.3 - 1.2 mg/dL [facility] TOTAL PROTEIN 6.2(L) 6.3 - 8.2 g/dL [facility] BUN 9 7 - 17 mg/dL [facility] AST 22 8 - 33 U/L [facility] CO2 24 22 - 32 mmol/l [facility] ALBUMIN/GLOBULIN RATIO 1.3 1.0 - 2.3 [facility] ALBUMIN 3.5 3.5 - 5.0 g/dL [facility] POTASSIUM 4.2 3.5 - 5.0 mEq/L [facility] ANION GAP 8(L) 9 - 20 mEq/L [facility] Blood specimen (specimen) 05/12/2008 4:45 AM HORTICULTURAL THERAPIST 05/12/2008 4:45 AM HORTICULTURAL THERAPIST Murphy Espitia MD CHEMISTRY ORDERABLES Final Resu lt Performing Organization Address City/[facility] de Phone Number INTERFACE SYSTEM Refer to clinic/hospital department [facility] CLIA# [id number] [address] [place] [address] * CARDIAC ENZYMES (05/12/2008 4:45 AM HORTICULTURAL THERAPIST) TROPONIN I <0.1 0.0 - 1.3 ng/mL [facility] CKMB 0.3 0.0 - 5.0 ng/mL [facility] Blood specimen (specimen) 05/12/2008 4:45 AM HORTICULTURAL THERAPIST 05/12/2008 4:45 AM HORTICULTURAL THERAPIST us Murphy Espitia MD CHEMISTRY ORDERABLES Final Resu lt Performing Organization Address [facility] de Phone Number INTERFACE SYSTEM Refer to clinic/hospital department [facility] CLIA# [id number] [address] [place] [address] * CARDIAC ENZYMES (05/11/2008 10:13 PM HORTICULTURAL THERAPIST) TROPONIN I <0.1 0.0 - 1.3 ng/mL [facility] CKMB 0.2 0.0 - 5.0 ng/mL [facility] Blood specimen (specimen) 05/11/2008 10:13 PM HORTICULTURAL THERAPIST 05/11/2008 10:13 PM HORTICULTURAL THERAPIST Murphy Espitia MD CHEMISTRY ORDERABLES Final Resu lt Performing Organization Address [facility] Phone Number INTERFACE SYSTEM Refer to clinic/hospital department [facility] CLIA# [id number] [address] [place] [address] * D-DIMER (05/11/2008 10:13 PM HORTICULTURAL THERAPIST) Pathologist [facility] D-DIMER QUANT 0.4 0.0 - 0.5 mcg/mL [facility] Comment: Testing performed using [...] range. Blood specimen (specimen) 05/11/2008 10:13 PM HORTICULTURAL THERAPIST 05/11/2008 10:13 PM HORTICULTURAL THERAPIST Murphy Espitia MD HEMATOLOGY ORDERABLES Final Res ult Performing Organization Address [facility] Phone Number INTERFACE SYSTEM Refer to clinic/hospital department [facility] CLIA# [id number] [address] [place] [address] * CARDIAC ENZYMES (05/11/2008 3:50 PM HORTICULTURAL THERAPIST) Pathologist [facility] TROPONIN I <0.1 0.0 - 1.3 ng/mL [facility] CKMB 0.2 0.0 - 5.0 ng/mL [facility] Blood specimen (specimen) 05/11/2008 3:50 PM HORTICULTURAL THERAPIST 05/11/2008 4:01 PM HORTICULTURAL THERAPIST us Murphy Espitia MD CHEMISTRY ORDERABLES Final Resu lt Performing Organization Address [facility] de Phone Number INTERFACE SYSTEM Refer to clinic/hospital department [facility] CLIA# [id number] [address] [place] [address] * XR CHEST PA OR AP (05/11/2008 1:07 PM HORTICULTURAL THERAPIST) Anatomical Region Laterality Modality Chest Other 05/11/2008 1:07 PM HORTICULTURAL THERAPIST Narrative 05/11/2008 4:41 PM HORTICULTURAL THERAPIST Exam: Chest - Portable Date/Time of Exam: [...] Result * MRSA CULTURE (05/11/2008 10:37 AM HORTICULTURAL THERAPIST) FINAL REPORT Culture screen for MRSA negative INTERFACE SYSTEM ANTERIOR NARES SWAB / Unknown 05/11/2008 10:37 AM HORTICULTURAL THERAPIST 05/11/2008 10:37 AM HORTICULTURAL THERAPIST us Murphy Espitia MD MICROBIOLOGY - GENERAL ORDERABL ES Final Result INTERFACE SYSTEM Refer to clinic/hospital department * URINALYSIS (05/11/2008 5:41 AM HORTICULTURAL THERAPIST) NITRITE UA NEGATIVE NEGATIVE [facility] UROBILINOGEN UA 0.2 0.2 [facility] CLARITY UA SL CLOUDY Clear [facility] SPECIFIC GRAVITY UA 1.015 <=1.005 [facility] GLUCOSE UA NEGATIVE NEGATIVE [facility] PH UA 8.0 5.0 - 9.0 [facility] BILIRUBIN UA NEGATIVE NEGATIVE [facility] LEUKOCYTE ESTERASE UA NEGATIVE NEGATIVE [facility] KETONES UA NEGATIVE NEGATIVE [facility] MICRO EXAM No No [facility] COLOR UA Yellow Straw [facility] PROTEIN UA NEGATIVE NEGATIVE [facility] BLOOD UA NEGATIVE NEGATIVE [facility] Urine specimen (specimen) 05/11/2008 5:41 AM HORTICULTURAL THERAPIST 05/11/2008 5:41 AM HORTICULTURAL THERAPIST us Murphy Espitia MD URINE ORDERABLES Final Result Performing Organization Address City/State/[facility] Co ri Phone Number INTERFACE SYSTEM Refer to clinic/hospital department [facility] CLIA# [id number] [address] [place] [address] documented in this encounter Visit Diagnoses Diagnosis Poisoning by unspecified drug or medicinal substance(977.9) Poisoning by unspecified drug or medicinal substance documented in this encounter Additional Health Concerns Infection Onset Date Last Indicated Resolved Time 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
--- OUTSIDE RECORDS SUMMARY | 2025-05-11 21:57 | XMS_ITS | Encounter Summary ---
Author Organization [facility] Address [address] [place] [address] Care Team Providers Care Balance Truing Inspector Name Role Phone Dara Tavera Primary Care Provider Encounter Details Date Type Department Care Team (Late st Contact Info) Description 08/13/2007 Outpatient [facility] [address] [place] [address] Tej Will MD [address] [address] Social History Tobacco Use Types Packs/Day Years Used Date Smoking Tobacco: Never Assessed Comments Unknown Sex and Gender Information Value Date Recorded Sex Assigned at Not on file Legal Sex Female 5:22 AM CONCRETE ANALYST Gender Identity Not on file Sexual Orientation Not on file documented as of this encounter Plan of Treatment Not on file documented as of this encounter Visit Diagnoses Not on filedocumented in this encounter Additional Health Concerns Infection Onset Date Last Indicated Resolved Time VRE Comment:Urine 10/30/13 Resolved 11/04/2013 11/04/2013 8 10:33 AM CONCRETE ANALYST R/O COVID-19 12/25/2019 12/25/2019 12/26/2019 2:46 PM CDT R/O COVID-19 05/09/2020 05/09/2020 05/09/2020 12:1 7 PM CONCRETE ANALYST documented as of this encounter Care Teams Balance Truing Inspector Relationship Specialty Start Date End Date Dara Tavera FNP [address] [place] [phone] PCP - General NURSE PRACTITIONER 10/13/18 documented as of this encounter
--- OUTSIDE RECORDS SUMMARY | 2025-05-11 21:57 | XMS_ITS | Encounter Summary ---
Author Organization [facility] Address [address] [place] [address] Care Team Providers Care Internet Developer Name Role Phone Dara Tavera Primary Care Provider Encounter Details Date Type Department Care Team (Latest Contact Info) Description 08/08/2003 Outpatient Historical [facility] Urology- [address] Entr[address], 3rd [place] [address] Hossein Blair MD NO ADDRESS ON FILE URGE & STRESS MIXED INCONTINENCE (Primary Dx) Social History Tobacco Use Types Packs/Day Years Used Date Smoking Tobacco: Never Assessed Comments Unknown Sex and Gender Information Value Date Recorded Sex Assigned at Not on file Legal Sex Female 5:22 AM JITNEY DRIVER Gender Identity Not on file Sexual Orientation Not on file documented as of this encounter Plan of Treatment Not on file documented as of this encounter Visit Diagnoses Diagnosis Mixed incontinence urge and stress (male)(female)- Primary documented in this encounter Additional Health Concerns Infection Onset Date Last Indicated Resolved Time VRE Comment:Urine 10/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
--- OUTSIDE RECORDS SUMMARY | 2025-05-11 21:57 | XMS_ITS | Encounter Summary ---
Author Organization [facility] Address [address] Bello: [place] [address] Care Team Providers Care Stock Mixer Name Role Phone Dara Tavera Primary Care Provider Encounter Details Date Type Department Care Team ([facility] st Contact Info) Description 11/25/1999 Outpatient Historical [facility] [place] [facility], [address] [place] [phone] Social History Tobacco Use Types Packs/Day Years Used Date Smoking Tobacco: Never Assessed Comments Unknown Sex and Gender Information Value Date Recorded Sex Assigned at Not on file Legal Sex Female 5:22 AM TRUCK SHOP MECHANIC Gender Identity Not on file Sexual Orientation Not on file documented as of this encounter Plan of Treatment Not on file documented as of this encounter Visit Diagnoses Not on filedocumented in this encounter Additional Health Concerns Infection Onset Date Last Indicated Resolved Time VRE Comment:Urine 10/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
--- OUTSIDE RECORDS SUMMARY | 2025-05-11 21:57 | XMS_ITS | Encounter Summary ---
Author Organization [facility] Address [address] [place] [address] Care Team Providers Care Jig And Fixture Builder Name Role Phone Dara Tavera Primary Care Provider Encounter Details Date Type Department Care Team (Latest Contact Info) Description 07/31/2003 Inpatient Historical [facility] Operating Room [address] [place] [address] Hossein Blair MD NO ADDRESS ON FILE FB BLADDER & URETHRA (Primary Dx) Social History Tobacco Use Types Packs/Day Years Used Date Smoking Tobacco: Never Assessed Comments Unknown Sex and Gender Information Value Date Recorded Sex Assigned at Not on file Legal Sex Female 5:22 AM LINTER DRIER OPERATOR Gender Identity Not on file Sexual Orientation Not on file documented as of this encounter Plan of Treatment Not on file documented as of this encounter Visit Diagnoses Diagnosis Foreign body in bladder and urethra- Primary documented in this encounter Additional Health Concerns Infection Onset Date Last Indicated Resolved Time VRE Comment:Urine 10/30/13 Resolved 11/04/2013 11/04/2013 8 10:33 AM LINTER DRIER OPERATOR R/O COVID-19 12/25/2019 12/25/2019 12/26/2019 2:46 PM CDT R/O COVID-19 05/09/2020 05/09/2020 05/09/2020 12:1 7 PM LINTER DRIER OPERATOR documented as of this encounter Care Teams Jig And Fixture Builder Relationship Specialty Start Date End Date Dara Tavera FNP [address] [place] [address] PCP - General NURSE PRACTITIONER 10/13/18 documented as of this encounter
--- OUTSIDE RECORDS SUMMARY | 2025-05-11 21:57 | XMS_ITS | Encounter Summary ---
Author Organization [facility] Address [address] [place] [address] Care Team Providers Care Seating Captain Name Role Phone Dara Tavera AMANDEEP Primary Care Provider Encounter Details Date Type Department Care Team (Late st Contact Info) Description 07/20/2007 Emergency [facility] [address] [place] [address] Ed, Physician NO ADDRESS ON FILE Jorge Danielson III G, DO NO ADDRESS ON FILE Social History Tobacco Use Types Packs/Day Years Used Date Smoking Tobacco: Never Assessed Comments Unknown Sex and Gender Information Value Date Recorded Sex Assigned at Not on file Legal Sex Female 5:22 AM ELECTRICAL TRANSMISSION ENGINEER Gender Identity Not on file Sexual Orientation Not on file documented as of this encounter Plan of Treatment Not on file documented as of this encounter Procedures Procedure Name Priority Date/Time Associated Diagnosis Comments URINALYSIS W/REFLEX MICROSCOPIC Routine 07/21/2007 1:27 AM ELECTRICAL TRANSMISSION ENGINEER XR ABDOMEN 1 VW Stat 07/21/2007 1:21 AM ELECTRICAL TRANSMISSION ENGINEER documented in this encounter Results * URINALYSIS (07/21/2007 1:27 AM ELECTRICAL TRANSMISSION ENGINEER) COLOR UA Yellow Straw INTERFACE SYSTEM [...] No No INTERFACE SYSTEM 07/21/2007 1:27 AM ELECTRICAL TRANSMISSION ENGINEER Jorge Colinegers III, DO URINE ORDERABLES Edited INTERFACE SYSTEM Refer to clinic/hospital department * XR ABDOMEN 1 VW (07/21/2007 1:21 AM ELECTRICAL TRANSMISSION ENGINEER) Anatomical Region Laterality Modality Abdomen Other 07/21/2007 1:21 AM ELECTRICAL TRANSMISSION ENGINEER Narrative 07/21/2007 1:21 AM ELECTRICAL TRANSMISSION ENGINEER Surgical clips are present in the gallbladder [...] Resolved 11/04/2013 11/04/2013 8 10:33 AM ELECTRICAL TRANSMISSION ENGINEER R/O COVID-19 12/25/2019 12/25/2019 12/26/2019 2:46 PM CDT R/O COVID-19 05/09/2020 05/09/2020 05/09/2020 12:1 7 PM ELECTRICAL TRANSMISSION ENGINEER documented as of this encounter Care Teams Seating Captain Relationship Specialty Start Date End Date Dara Tavera FNP [address] [place] [address] PCP - General NURSE PRACTITIONER 10/13/18 documented as of this encounter
--- OUTSIDE RECORDS SUMMARY | 2025-05-11 21:57 | XMS_ITS | Encounter Summary ---
Author Organization [facility] Address [address] [facility] Attn: [place] [address] Care Team Providers Care Docket Specialist Name Role Phone Dara Tavera Primary Care Provider Encounter Details Date Type Department Care Team ([facility] Contact Info) Description 02/25/2002 Outpatient Historical Raúl Osullivan MD [address] [place] [address] Social History Tobacco Use Types Packs/Day Years Used Date Smoking Tobacco: Never Assessed Comments Unknown Sex and Gender Information Value Date Recorded Sex Assigned at Not on file Legal Sex Female 5:22 AM TURNSTILE COLLECTOR Gender Identity Not on file Sexual Orientation Not on file documented as of this encounter Plan of Treatment Not on file documented as of this encounter Visit Diagnoses Not on filedocumented in this encounter Additional Health Concerns Infection Onset Date Last Indicated Resolved Time VRE Comment:Urine 10/30/13 Resolved 11/04/2013 11/04/2013 8 10:33 AM TURNSTILE COLLECTOR R/O COVID-19 12/25/2019 12/25/2019 12/26/2019 2:46 PM CDT R/O COVID-19 05/09/2020 05/09/2020 05/09/2020 12:1 7 PM TURNSTILE COLLECTOR documented as of this encounter Care Teams Docket Specialist Relationship Specialty Start Date End Date Dara Tavera FNP [address] [place] [phone] PCP - General NURSE PRACTITIONER 10/13/18 documented as of this encounter
--- OUTSIDE RECORDS SUMMARY | 2025-05-11 21:57 | XMS_ITS | Encounter Summary ---
Author Organization [facility] Address [address] [place] [address] Care Team Providers Care Sap Abap Developer Name Role Phone Dara Tavera AMANDEEP Primary Care Provider Encounter Details Date Type Department Care Team (Latest Contact Info) Description 03/28/2008 Outpatient Historical [facility] [address] [place] [address] AMBULANCE, [facility] Unspecified Asthma; Unspecified Nonpsychotic Mental Disorder; Acquired [...] file Legal Sex Female 5:22 AM DIGITAL CONTENT MARKETING MANAGER Gender Identity Not on file Sexual [...] Resolved 11/04/2013 11/04/2013 8 10:33 AM DIGITAL CONTENT MARKETING MANAGER R/O COVID-19 12/25/2019 12/25/2019 12/26/2019 2:46 PM CDT R/O COVID-05/09/2020 05/09/2020 05/09/2020 12:1 7 PM DIGITAL CONTENT MARKETING MANAGER documented as of this encounter Care Teams Sap Abap Developer Relationship Specialty Start Date End Date Dara Tavera FNP [address] [place] [phone] PCP - General NURSE PRACTITIONER 10/13/18 documented as of this encounter
--- OUTSIDE RECORDS SUMMARY | 2025-05-11 21:57 | XMS_ITS | Encounter Summary ---
Author Organization [facility] Address [address] [place] [address] Care Team Providers Care Field Artillery Targeting Technician Name Role Phone Dara Tavera [facility] Primary Care Provider Encounter Details Date Type Department Care Team (Latest Contact Info) Description 05/10/2008 Outpatient Historical [facility] [address] [place] [address] AMBULANCE, [facility] Other Malaise and Fatigue; Other Speech Disturbance; Unspecified Abnormal Pupillary Function; Esophageal Reflux; Encounter for Long-Term (Current) Use of Other Medications Social History Tobacco Use Types Packs/Day Years Used Date Smoking Tobacco: Never Assessed Comments Unknown Sex and Gender Information Value Date Recorded Sex Assigned at Not on file Legal Sex Female 5:22 AM MERIT SYSTEM DIRECTOR Gender Identity Not on file Sexual [...] 10/30/13 Resolved 11/04/2013 11/04/2013 8 10:33 AM MERIT SYSTEM DIRECTOR R/O COVID-19 12/25/2019 12/25/2019 12/26/2019 2:46 PM CDT R/O COVID-19 05/09/2020 05/09/2020 05/09/2020 12:1 7 PM MERIT SYSTEM DIRECTOR documented as of this encounter Care Teams Field Artillery Targeting Technician Relationship Specialty Start Date End Date Dara Tavera FNP [address] [place] [phone] PCP - General NURSE PRACTITIONER 10/13/18 documented as of this encounter
--- OUTSIDE RECORDS SUMMARY | 2025-05-11 21:57 | XMS_ITS | Encounter Summary ---
Author Organization [facility] Address [address] [place] [address] Care Team Providers Care Tractor Distributor Name Role Phone Dara Tavera AMANDEEP Primary Care Provider Encounter Details Date Type Department Care Team (Latest Contact Info) Description 05/11/2008 Outpatient Historical [facility] [address] [place] [address] AMBULANCE, [facility] Esophageal Reflux; Personal History of Allergy [...] on file Legal Sex Female 5:22 AM ELEMENTARY SCHOOL READING TEACHER Gender Identity Not on file Sexual [...] 10/30/13 Resolved 11/04/2013 11/04/2013 8 10:33 AM ELEMENTARY SCHOOL READING TEACHER R/O COVID-19 12/25/2019 12/25/2019 12/26/2019 2:46 PM CDT R/O COVID-19 05/09/2020 05/09/2020 05/09/2020 12:1 7 PM ELEMENTARY SCHOOL READING TEACHER documented as of this encounter Care Teams Tractor Distributor Relationship Specialty Start Date End Date Dara Tavera FNP [address] [place] [phone] PCP - General NURSE PRACTITIONER 10/13/18 documented as of this encounter
--- OUTSIDE RECORDS SUMMARY | 2025-05-11 21:57 | XMS_ITS | Encounter Summary ---
Author Organization [facility] Address [address] [place] [address] Care Team Providers Care Concrete Boom Pump Operator Name Role Phone Dara Tavera BAR CAPTAIN Primary Care Provider [phone] Encounter Details Date Type Department Care Team (Latest Contact Info) Description 11/03/2003 Outpatient Historical [facility] [address] [place] [address] Hood Kerr Jr., MD [address] [place] [address] SCHIZOAFFECTIVE-UNSP EC (CMS/HCC) (Primary Dx) Social History Tobacco Use Types Packs/Day Years Used Date Smoking Tobacco: Never Assessed Comments Unknown Sex and Gender Information Value Date Recorded Sex Assigned at Not on file Legal Sex Female 5:22 AM ADMINISTRATIVE EXECUTIVE Gender Identity Not on file Sexual [...] Resolved 11/04/2013 11/04/2013 8 10:33 AM ADMINISTRATIVE EXECUTIVE R/O COVID-19 12/25/2019 12/25/2019 12/26/2019 2:46 PM CDT R/O COVID-19 05/09/2020 05/09/2020 05/09/2020 12:1 7 PM ADMINISTRATIVE EXECUTIVE documented as of this encounter Care Teams Concrete Boom Pump Operator Relationship Specialty Start Date End Date Dara Tavera FNP [address] [place] [address] PCP - General NURSE PRACTITIONER 10/13/18 documented as of this encounter
--- OUTSIDE RECORDS SUMMARY | 2025-05-11 21:57 | XMS_ITS | Encounter Summary ---
Author Organization [facility] Address [address] Bello: [place] [address] Care Team Providers Care Rn Occupational Name Role Phone Dara Tavera Primary Care Provider Encounter Details Date Type Department Care Team ([facility] st Contact Info) Description 11/12/1999 Outpatient Historical [facility] [place] [facility], [address] [place] [id number] Social History Tobacco Use Types Packs/Day Years Used Date Smoking Tobacco: Never Assessed Comments Unknown Sex and Gender Information Value Date Recorded Sex Assigned at Not on file Legal Sex Female 5:22 AM ELECTRICIAN WIRING Gender Identity Not on file Sexual Orientation Not on file documented as of this encounter Plan of Treatment Not on file documented as of this encounter Visit Diagnoses Not on filedocumented in this encounter Additional Health Concerns Infection Onset Date Last Indicated Resolved Time VRE Comment:Urine 10/30/13 Resolved 11/04/2013 11/04/2013 8 10:33 AM ELECTRICIAN WIRING R/O COVID-19 12/25/2019 12/25/2019 12/26/2019 2:46 PM CDT R/O COVID-19 05/09/2020 05/09/2020 05/09/2020 12:1 7 PM ELECTRICIAN WIRING documented as of this encounter Care Teams Rn Occupational Relationship Specialty Start Date End Date Dara Tavera FNP [address] [place] [phone] PCP - General NURSE PRACTITIONER 10/13/18 documented as of this encounter
--- OUTSIDE RECORDS SUMMARY | 2025-05-11 21:57 | XMS_ITS | Encounter Summary ---
Author Organization [facility] Address [address] Attn: [place] [address] Care Team Providers Care Auditor/Quality Name Role Phone Dara Tavera Primary Care Provider Encounter Details Date Type Department Care Team ([facility] st Contact Info) Description 01/17/2001 Outpatient Historical Non-Staff, Physician NO ADDRESS ON FILE Social History Tobacco Use Types Packs/Day Years Used Date Smoking Tobacco: Never Assessed Comments Unknown Sex and Gender Information Value Date Recorded Sex Assigned at Not on file Legal Sex Female 5:22 AM ONLINE ADVERTISING ANALYST Gender Identity Not on file Sexual Orientation Not on file documented as of this encounter Plan of Treatment Not on file documented as of this encounter Visit Diagnoses Not on filedocumented in this encounter Additional Health Concerns Infection Onset Date Last Indicated Resolved Time VRE Comment:Urine 10/30/13 Resolved 11/04/2013 11/04/2013 8 10:33 AM ONLINE ADVERTISING ANALYST R/O COVID-19 12/25/2019 12/25/2019 12/26/2019 2:46 PM CDT R/O COVID-19 05/09/2020 05/09/2020 05/09/2020 12:1 7 PM ONLINE ADVERTISING ANALYST documented as of this encounter Care Teams Auditor/Quality Relationship Specialty Start Date End Date Dara Tavera FNP [address] [place] [phone] PCP - General NURSE PRACTITIONER 10/13/18 documented as of this encounter
--- OUTSIDE RECORDS SUMMARY | 2025-05-11 21:57 | XMS_ITS | Encounter Summary ---
Author Organization [facility] Address [address] [place] [address] Care Team Providers Care Promotions Intern Name Role Phone Dara Tavera AMANDEEP Primary Care Provider [phone] Encounter Details Date Type Department Care Team (Late st Contact Info) Description 04/30/2007 Emergency [facility] Emergency Department [address] [place] [address] Jillian Joyce MD [address] [place] [address] Other Acute Pain (Primary Dx) Social History Tobacco Use Types Packs/Day Years Used Date Smoking Tobacco: Never Assessed Comments Unknown Sex and Gender Information Value Date Recorded Sex Assigned at Not on file Legal Sex Female 5:22 AM FUR CLIPPER Gender Identity Not on file Sexual Orientation Not on file documented as of this encounter Plan of Treatment Not on file documented as of this encounter Procedures Procedure Name Priority Date/Time Associated Diagnosis Comments URINALYSIS W/REFLEX MICROSCOPIC Routine 04/30/2007 9:34 PM FUR CLIPPER PT AND APTT Routine 04/30/2007 7:35 PM FUR CLIPPER CBC WITH DIFFERENTIAL Routine 04/30/2007 7:35 PM FUR CLIPPER LIPASE Routine 04/30/2007 7:35 PM FUR CLIPPER COMPREHENSIVE METABOLIC PANEL Routine 04/30/2007 7:35 PM FUR CLIPPER documented in this encounter Results * URINALYSIS (04/30/2007 9:34 PM FUR CLIPPER) COLOR UA Straw Straw INTERFACE SYSTEM CLARITY [...] No No INTERFACE SYSTEM 04/30/2007 9:34 PM FUR CLIPPER us Jillian Joyce MD URINE ORDERABLES Edited INTERFACE SYSTEM Refer to clinic/hospital department * PT AND APTT (04/30/2007 7:35 PM FUR CLIPPER) PROTIME 15.1 13.0 - 15.7 Secs INTERFACE [...] in APTT Normal Range. 04/30/2007 7:35 PM FUR CLIPPER Jillian Joyce MD HEMATOLOGY ORDERABLES Edit ed Performing Organization Address City/[facility]/ZIP Co de Phone Number INTERFACE SYSTEM Refer to clinic/hospital department * (ABNORMAL) CBC WITH DIFFERENTIAL (04/30/2007 7:35 PM FUR CLIPPER) WBC 18.3(H) 4.5 - 11.0 K/ul INTERFACE [...] 0.2 K/ul INTERFACE SYSTEM 04/30/2007 7:35 PM FUR CLIPPER Jillian Joyce MD HEMATOLOGY ORDERABLES Edit ed INTERFACE SYSTEM Refer to clinic/hospital department * (ABNORMAL) COMPREHENSIVE METABOLIC PANEL (04/30/2007 7:35 PM FUR CLIPPER) GLUCOSE 103 70 - 110 mg/dL INTERFACE [...] 295 mOsm/Kg INTERFACE SYSTEM 04/30/2007 7:35 PM FUR CLIPPER us Jillian Joyce MD CHEMISTRY ORDERABLES Edite d Performing Organization Address [facility] Phone Number INTERFACE SYSTEM Refer to clinic/hospital department * LIPASE (04/30/2007 7:35 PM FUR CLIPPER) LIPASE 23 6 - 51 U/L INTERFACE SYSTEM 04/30/2007 7:35 PM FUR CLIPPER Jillian Joyce MD CHEMISTRY ORDERABLES Edite d Performing Organization Address [facility] Co ak Phone Number INTERFACE SYSTEM Refer to clinic/hospital department documented in this encounter Visit Diagnoses Diagnosis Other acute pain- Primary documented in this encounter Additional Health Concerns Infection Onset Date Last Indicated Resolved Time VRE Comment:Urine 10/30/13 Resolved 11/04/2013 11/04/2013 8 10:33 AM FUR CLIPPER R/O COVID-19 12/25/2019 12/25/2019 12/26/2019 2:46 PM CDT R/O COVID-19 05/09/2020 05/09/2020 05/09/2020 12:1 7 PM FUR CLIPPER documented as of this encounter Care Teams Promotions Intern Relationship Specialty Start Date End Date Dara Tavera FNP [address] [place] [phone] PCP - General NURSE PRACTITIONER 10/13/18 documented as of this encounter
--- OUTSIDE RECORDS SUMMARY | 2025-05-11 21:57 | XMS_ITS | Encounter Summary ---
Author Organization [facility] Address [address] [place] [address] Care Team Providers Care It Application Architect Name Role Phone Dara Tavera Primary Care Provider Encounter Details Date Type Department Care Team (Late st Contact Info) Description 06/10/1997 Outpatient Historical [facility] Chio Lopez MD [address] [place] [phone] Lumbago (Primary Dx) Social History Tobacco Use Types Packs/Day Years Used Date Smoking Tobacco: Never Assessed Comments Unknown Sex and Gender Information Value Date Recorded Sex Assigned at Not on file Legal Sex Female 5:22 AM CARE INFORMATION ASSOCIATE Gender Identity Not on file Sexual Orientation Not on file documented as of this encounter Plan of Treatment Not on file documented as of this encounter Visit Diagnoses Diagnosis Lumbago- Primary documented in this encounter Additional Health Concerns Infection Onset Date Last Indicated Resolved Time VRE Comment:Urine 10/30/13 Resolved 11/04/2013 11/04/2013 8 10:33 AM CARE INFORMATION ASSOCIATE R/O COVID-19 12/25/2019 12/25/2019 12/26/2019 2:46 PM CDT R/O COVID-19 05/09/2020 05/09/2020 05/09/2020 12:1 7 PM CARE INFORMATION ASSOCIATE documented as of this encounter Care Teams It Application Architect Relationship Specialty Start Date End Date Dara Tavera FNP [address] [place] [address] PCP - General NURSE PRACTITIONER 10/13/18 documented as of this encounter
--- OUTSIDE RECORDS SUMMARY | 2025-05-11 21:57 | XMS_ITS | Encounter Summary ---
Author Organization [facility] Address [address] [place] [address] Care Team Providers Care Planning Supervisor Name Role Phone Dara Tavera Primary Care Provider [phone] Encounter Details Date Type Department Care Team (Late st Contact Info) Description 05/13/2007 Outpatient [facility] Ambulance [address] [place] [address] AMBULANCE, [facility] Social History Tobacco Use Types Packs/Day Years Used Date Smoking Tobacco: Never Assessed Comments Unknown Sex and Gender Information Value Date Recorded Sex Assigned at Not on file Legal Sex Female 5:22 AM BOX PERSON Gender Identity Not on file Sexual Orientation Not on file documented as of this encounter Plan of Treatment Not on file documented as of this encounter Visit Diagnoses Not on filedocumented in this encounter Additional Health Concerns Infection Onset Date Last Indicated Resolved Time VRE Comment:Urine 10/30/13 Resolved 11/04/2013 11/04/2013 8 10:33 AM BOX PERSON R/O COVID-19 12/25/2019 12/25/2019 12/26/2019 2:46 PM CDT R/O COVID-19 05/09/2020 05/09/2020 05/09/2020 12:1 7 PM BOX PERSON documented as of this encounter Care Teams Planning Supervisor Relationship Specialty Start Date End Date Dara Tavera FNP [address] [place] [address] PCP - General NURSE PRACTITIONER 10/13/18 documented as of this encounter
--- OUTSIDE RECORDS SUMMARY | 2025-05-11 21:57 | XMS_ITS | Encounter Summary ---
Author Organization [facility] Address [address] [place] [address] Care Team Providers Care Manager Sound Name Role Phone Dara Tavera Primary Care Provider Encounter Details Date Type Department Care Team (Late st Contact Info) Description 08/06/2007 [facility]patient [facility] [address] [place] [address] Tej Will MD [address] [address] Social History Tobacco Use Types Packs/Day Years Used Date Smoking Tobacco: Never Assessed Comments Unknown Sex and Gender Information Value Date Recorded Sex Assigned at Not on file Legal Sex Female 5:22 AM CHILD ATTENDANT Gender Identity Not on file Sexual Orientation Not on file documented as of this encounter Plan of Treatment Not on file documented as of this encounter Visit Diagnoses Not on filedocumented in this encounter Additional Health Concerns Infection Onset Date Last Indicated Resolved Time VRE Comment:Urine 10/30/13 Resolved 11/04/2013 11/04/2013 8 10:33 AM CHILD ATTENDANT R/O COVID-19 12/25/2019 12/25/2019 12/26/2019 2:46 PM CDT R/O COVID-19 05/09/2020 05/09/2020 05/09/2020 12:1 7 PM CHILD ATTENDANT documented as of this encounter Care Teams Manager Sound Relationship Specialty Start Date End Date Dara Tavera FNP [address] [place] [phone] PCP - General NURSE PRACTITIONER 10/13/18 documented as of this encounter
--- OUTSIDE RECORDS SUMMARY | 2025-05-11 21:57 | XMS_ITS | Encounter Summary ---
Author Organization [facility] Address [address] [place] [address] Care Team Providers Care Auctioneer Art Name Role Phone Dara Tavera Primary Care Provider Encounter Details Date Type Department Care Team (Latest Contact Info) Description 08/14/2003 Outpatient Historical [facility]- [address] 3[address] [place] [address] Hossein Blair MD NO ADDRESS ON FILE FEMALE STRESS INCONTINENCE (Primary Dx) Social History Tobacco Use Types Packs/Day Years Used Date Smoking Tobacco: Never Assessed Comments Unknown Sex and Gender Information Value Date Recorded Sex Assigned at Not on file Legal Sex Female 5:22 AM INSIDE SALES SUPERVISOR Gender Identity Not on file Sexual Orientation Not on file documented as of this encounter Plan of Treatment Not on file documented as of this encounter Visit Diagnoses Diagnosis Female stress incontinence- Primary documented in this encounter Additional Health Concerns Infection Onset Date Last Indicated Resolved Time VRE Comment:Urine 10/30/13 Resolved 11/04/2013 11/04/2013 10:33 AM INSIDE SALES SUPERVISOR R/O COVID-19 12/25/2019 12/25/2019 12/26/2019 2:46 PM CDT R/O COVID-19 05/09/2020 05/09/2020 05/09/2020 12:1 7 PM INSIDE SALES SUPERVISOR documented as of this encounter Care Teams Auctioneer Art Relationship Specialty Start Date End Date Dara Tavera FNP [address] [place] [phone] PCP - General NURSE PRACTITIONER 10/13/18 documented as of this encounter
--- OUTSIDE RECORDS SUMMARY | 2025-05-11 21:57 | XMS_ITS | Encounter Summary ---
Author Organization [facility] Address [address] [place] [address] Care Team Providers Care Yard Engineer Name Role Phone Dara Tavera Primary Care Provider Encounter Details Date Type Department Care Team (Latest Contact Info) Description 06/17/1997 Outpatient Historical [facility] Roney Arora MD [address] [facility] [address] [place] [address] Unspecified osteomyelitis, site unspecified (CMS/HCC) (Primary Dx) Social History Tobacco Use Types Packs/Day Years Used Date Smoking Tobacco: Never Assessed Comments Unknown Sex and Gender Information Value Date Recorded Sex Assigned at Not on file Legal Sex Female 5:22 AM PAPER SUPERVISOR Gender Identity Not on file Sexual [...] Resolved 11/04/2013 11/04/2013 8 10:33 AM PAPER SUPERVISOR R/O COVID-19 12/25/2019 12/25/2019 12/26/2019 2:46 PM CDT R/O COVID-19 05/09/2020 05/09/2020 05/09/2020 12:1 7 PM PAPER SUPERVISOR documented as of this encounter Care Teams Yard Engineer Relationship Specialty Start Date End Date Dara Tavera FNP [address] [place] [phone] PCP - General NURSE PRACTITIONER 10/13/18 documented as of this encounter
--- OUTSIDE RECORDS SUMMARY | 2025-05-11 21:57 | XMS_ITS | Encounter Summary ---
Author Organization [facility] Address [address] [place] [address] Care Team Providers Care Licensed Embalmer Name Role Phone Dara Tavera Primary Care Provider Encounter Details Date Type Department Care Team (Late st Contact Info) Description 07/03/2007 Outpatient [facility] [address] [place] [address] Tej Wlil MD [address] [address] Social History Tobacco Use Types Packs/Day Years Used Date Smoking Tobacco: Never Assessed Comments Unknown Sex and Gender Information Value Date Recorded Sex Assigned at Not on file Legal Sex Female 5:22 AM ACCOUNT RECEIVABLE CLERK Gender Identity Not on file Sexual Orientation Not on file documented as of this encounter Plan of Treatment Not on file documented as of this encounter Visit Diagnoses Not on filedocumented in this encounter Additional Health Concerns Infection Onset Date Last Indicated Resolved Time VRE Comment:Urine 10/30/13 Resolved 11/04/2013 11/04/2013 8 10:33 AM ACCOUNT RECEIVABLE CLERK R/O COVID-19 12/25/2019 12/25/2019 12/26/2019 2:46 PM CDT R/O COVID-19 05/09/2020 05/09/2020 05/09/2020 12:1 7 PM ACCOUNT RECEIVABLE CLERK documented as of this encounter Care Teams Licensed Embalmer Relationship Specialty Start Date End Date Dara Tavera FNP [address] [place] [phone] PCP - General NURSE PRACTITIONER 10/13/18 documented as of this encounter
--- OUTSIDE RECORDS SUMMARY | 2025-05-11 21:58 | XMS_ITS | Encounter Summary ---
Author Organization [facility] Address [address] [place] [address] Care Team Providers Care Hydrometallurgical Engineer Name Role Phone Dara Tavera Primary Care Provider Encounter Details Date Type Department Care Team (Latest Contact Info) Description 11/17/2005 Outpatient Historical [facility] [address] [place] [address] AMBULANCE, [facility] Non-Healing Surgical Wound (Primary Dx) Social History Tobacco Use Types Packs/Day Years Used Date Smoking Tobacco: Never Assessed Comments Unknown Sex and Gender Information Value Date Recorded Sex Assigned at Not on file Legal Sex Female 5:[address] LOCKSMITH Gender Identity Not on file Sexual Orientation Not on file documented as of this encounter Plan of Treatment Not on file documented as of this encounter Visit Diagnoses Diagnosis Non-healing surgical wound- Primary documented in this encounter Additional Health Concerns Infection Onset Date Last Indicated Resolved Time VRE Comment:Urine 10/30/13 Resolved 11/04/2013 11/04/2013 8 10:[address] LOCKSMITH R/O COVID-19 12/25/2019 12/25/2019 12/26/2019 2:46 PM CDT R/O COVID-19 05/09/2020 05/09/2020 05/09/2020 12:[address] LOCKSMITH documented as of this encounter Care Teams Hydrometallurgical Engineer Relationship Specialty Start Date End Date Dara Tavera FNP [address] [place] [phone] PCP - General NURSE PRACTITIONER 10/13/18 documented as of this encounter
--- OUTSIDE RECORDS SUMMARY | 2025-05-11 21:58 | XMS_ITS | Encounter Summary ---
Author Organization [facility] Address [address] [place] [address] Care Team Providers Care Ornamental Iron Worker Name Role Phone Dara Tavera AMANDEEP Primary Care Provider Encounter Details Date Type Department Care Team (Late st Contact Info) Description 04/04/2007 Emergency [facility] Emergency Department [address] [place] [address] Sammi Justice MD [address] [facility] [address] [place] [address] Unspecified Chest Pain (Primary Dx) Social History Tobacco Use Types Packs/Day Years Used Date Smoking Tobacco: Never Assessed Comments Unknown Sex and Gender Information Value Date Recorded Sex Assigned at Not on file Legal Sex Female 5:22 AM FUNERAL PRE ARRANGEMENT COUNSELOR Gender Identity Not on file Sexual [...] ORDERABLES Edite d Performing Organization Address [facility] Phone Number INTERFACE SYSTEM Refer to clinic/hospital [...] ORDERABLES Edite d Performing Organization Address [facility] Phone Number INTERFACE SYSTEM Refer to clinic/hospital [...] Goal INR 3.0; range 2.5 - 3.5 POST-UT Goal INR 2.5; range 2.0 - 3.0 or Goal 3.0; range 2.5 - 3.5 Atrial Fibrillation Goal INR 2.5; range 2.0 - 3.0 Ischemic Stroke Goal INR 2.5; range 2.0 - 3.0 For additional information see Guidelines for Anticoagulation available from the pharmacy [facility]. 04/04/2007 1:03 AM CDT Sammi Justice MD HEMATOLOGY ORDERABLES Edite d Performing Organization Address [facility] Phone Number INTERFACE SYSTEM Refer to clinic/hospital [...] MD CHEMISTRY ORDERABLES Edited Performing Organization Address [facility] Phone Number INTERFACE SYSTEM [...] ORDERABLES Edited Performing Organization Address [facility] Phone Number INTERFACE SYSTEM Refer to clinic/hospital department documented in this encounter Visit Diagnoses Diagnosis Chest pain, unspecified- Primary documented in this encounter Additional Health Concerns Infection Onset Date Last Indicated Resolved Time 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
--- OUTSIDE RECORDS SUMMARY | 2025-05-11 21:58 | XMS_ITS | Encounter Summary ---
Author Organization [facility] Address [address] [place] [address] Care Team Providers Care Caustics Loader Name Role Phone Dara Tavera AMANDEEP Primary Care Provider Encounter Details Date Type Department Care Team (Late st Contact Info) Description 05/14/2007 Emergency [facility] Emergency Department [address] [place] [address] Kurt Nassar MD [address] [place] [address] Abdominal Pain, Unspecified Site (Primary Dx) Social History Tobacco Use Types Packs/Day Years Used Date Smoking Tobacco: Never Assessed Comments Unknown Sex and Gender Information Value Date Recorded Sex Assigned at Not on file Legal Sex Female 5:22 AM CHIEF PILOT Gender Identity Not on file Sexual Orientation Not on file documented as of this encounter Plan of Treatment Not on file documented as of this encounter Procedures Procedure Name Priority Date/Time Associated Diagnosis Comments URINALYSIS W/REFLEX MICROSCOPIC Routine 05/14/2007 12:20 PM CHIEF PILOT CBC WITH DIFFERENTIAL Routine 05/14/2007 11:37 AM CHIEF PILOT LIPASE Routine 05/14/2007 11:37 AM CHIEF PILOT AMYLASE Routine 05/14/2007 11:37 AM CHIEF PILOT COMPREHENSIVE METABOLIC PANEL Routine 05/14/2007 11:37 AM CHIEF PILOT documented in this encounter Results * URINALYSIS (05/14/2007 12:20 PM CHIEF PILOT) COLOR UA Yellow Straw INTERFACE SYSTEM CLARITY [...] No INTERFACE SYSTEM 05/14/2007 12:2 0 PM CHIEF PILOT Kurt Nassar MD URINE ORDERABLES Edited Performing Organization Address City/[facility] [place] Phone Number INTERFACE SYSTEM Refer to clinic/hospital department * AMYLASE (05/14/2007 11:37 AM CHIEF PILOT) AMYLASE 46 20 - 104 U/L INTERFACE SYSTEM 05/14/2007 11:3 7 AM CHIEF PILOT Result [facility] Kurt Nassar MD CHEMISTRY ORDERABLES Edite d Performing Organization Address City/[facility] Co de Phone Number INTERFACE SYSTEM Refer to clinic/hospital department * LIPASE (05/14/2007 11:37 AM CHIEF PILOT) LIPASE 30 6 - 51 U/L INTERFACE SYSTEM 05/14/2007 11:3 7 AM CHIEF PILOT Kurt Nassar MD CHEMISTRY ORDERABLES Edite d Performing Organization Address City/[facility] Co de Phone Number INTERFACE SYSTEM Refer to clinic/hospital department * (ABNORMAL) COMPREHENSIVE METABOLIC PANEL (05/14/2007 11:37 AM CHIEF PILOT) GLUCOSE 104 70 - 110 mg/dL INTERFACE [...] mOsm/Kg INTERFACE SYSTEM 05/14/2007 11:3 7 AM CHIEF PILOT us Kurt Nassar MD CHEMISTRY ORDERABLES Edite d INTERFACE SYSTEM Refer to clinic/hospital department * (ABNORMAL) CBC WITH DIFFERENTIAL (05/14/2007 11:37 AM CHIEF PILOT) WBC 12.6(H) 4.5 - 11.0 K/ul INTERFACE [...] K/ul INTERFACE SYSTEM 05/14/2007 11:3 7 AM CHIEF PILOT us Kurt Nassar MD HEMATOLOGY ORDERABLES Edit ed INTERFACE SYSTEM Refer to clinic/hospital department documented in this encounter Visit Diagnoses Diagnosis Abdominal pain, unspecified site- Primary documented in this encounter Additional Health Concerns Infection Onset Date Last Indicated Resolved Time VRE Comment:Urine 10/30/13 Resolved 11/04/2013 11/04/2013 10:33 AM CHIEF PILOT R/O COVID-19 12/25/2019 12/25/2019 12/26/2019 2:46 PM CDT R/O COVID-19 05/09/2020 05/09/2020 05/09/2020 12:1 7 PM CHIEF PILOT documented as of this encounter Care Teams Caustics Loader Relationship Specialty Start Date End Date Dara Tavera FNP [address] [place] [phone] PCP - General NURSE PRACTITIONER 10/13/18 documented as of this encounter
--- OUTSIDE RECORDS SUMMARY | 2025-05-11 21:58 | XMS_ITS | Encounter Summary ---
Author Organization [facility] Address [address] [place] [address] Care Team Providers Care Correctional Security Officer Name Role Phone Dara Tavera Primary Care Provider Encounter Details Date Type Department Care Team (Latest Contact Info) Description 02/26/2007 Outpatient Historical [facility] [address] [place] [address] AMBULANCE, [facility] Abdominal Pain, Unspecified Site (Primary Dx) Social History Tobacco Use Types Packs/Day Years Used Date Smoking Tobacco: Never Assessed Comments Unknown Sex and Gender Information Value Date Recorded Sex Assigned at Not on file Legal Sex Female 5:22 AM WOODWIND INSTRUMENTS INSPECTOR Gender Identity Not on file Sexual Orientation Not on file documented as of this encounter Plan of Treatment Not on file documented as of this encounter Visit Diagnoses Diagnosis Abdominal pain, unspecified site- Primary documented in this encounter Additional Health Concerns Infection Onset Date Last Indicated Resolved Time VRE Comment:Urine 10/30/13 Resolved 11/04/2013 11/04/2013 8 10:33 AM WOODWIND INSTRUMENTS INSPECTOR R/O COVID-19 12/25/2019 12/25/2019 12/26/2019 2:46 PM CDT R/O COVID-19 05/09/2020 05/09/2020 05/09/2020 12:1 7 PM WOODWIND INSTRUMENTS INSPECTOR documented as of this encounter Care Teams Correctional Security Officer Relationship Specialty Start Date End Date Dara Tavera FNP [address] [place] [phone] PCP - General NURSE PRACTITIONER 10/13/18 documented as of this encounter
--- OUTSIDE RECORDS SUMMARY | 2025-05-11 21:58 | XMS_ITS | Encounter Summary ---
Author Organization [facility] Address [address] [place] [address] Care Team Providers Care Leasing Consultant Name Role Phone Dara Tavera Primary Care Provider Encounter Details Date Type Department Care Team (Latest Contact Info) Description 12/03/2005 Outpatient Historical [facility] [address] [place] [address] AMBULANCE, [facility] Disruption of External Operation Wound, not Elsewhere Classified (Primary Dx) Social History Tobacco Use Types Packs/Day Years Used Date Smoking Tobacco: Never Assessed Comments Unknown Sex and Gender Information Value Date Recorded Sex Assigned at Not on file Legal Sex Female 5:22 AM SECURITY ADVISOR Gender Identity Not on file Sexual Orientation Not on file documented as of this encounter Plan of Treatment Not on file documented as of this encounter Visit Diagnoses Diagnosis Disruption of external operation (surgical) wound- Primary documented in this encounter Additional Health Concerns Infection Onset Date Last Indicated Resolved Time VRE Comment:Urine 10/30/13 Resolved 11/04/2013 11/04/2013 8 10:33 AM SECURITY ADVISOR R/O COVID-19 12/25/2019 12/25/2019 12/26/2019 2:46 PM CDT R/O COVID-19 05/09/2020 05/09/2020 05/09/2020 12:1 7 PM SECURITY ADVISOR documented as of this encounter Care Teams Leasing Consultant Relationship Specialty Start Date End Date Dara Tavera FNP [address] [place] [phone] PCP - General NURSE PRACTITIONER 10/13/18 documented as of this encounter
--- OUTSIDE RECORDS SUMMARY | 2025-05-11 21:58 | XMS_ITS | Encounter Summary ---
Author Organization [facility] Address [address] [place] [address] Care Team Providers Care Stitch Bonder Machine Operator Helper Name Role Phone Dara Tavera AMANDEEP Primary Care Provider Encounter Details Date Type Department Care Team (Late st Contact Info) Description 04/18/2007 Inpatient Historical [facility] Pawan Rosario MD [address] [place] [address] Bipolar Affective, Mixed, Sev w/ Psych (CMS/HCC) (Primary Dx) Social History Tobacco Use Types Packs/Day Years Used Date Smoking Tobacco: Never Assessed Comments Unknown Sex and Gender Information Value Date Recorded Sex Assigned at Not on file Legal Sex Female 5:22 AM TRANSPORT TRUCK DRIVER Gender Identity Not on file Sexual Orientation Not on file documented as of this encounter Plan of Treatment Not on file documented as of this encounter Procedures Procedure Name Priority Date/Time Associated Diagnosis Comments URINALYSIS W/REFLEX MICROSCOPIC Routine 04/22/2007 9:05 AM TRANSPORT TRUCK DRIVER LIPASE Routine 04/18/2007 10:54 AM CDT AMYLASE Routine 04/18/2007 10:54 AM CDT CBC WITH DIFFERENTIAL Routine 04/18/2007 10:48 AM CDT TSH Routine 04/18/2007 10:48 AM CDT ETHANOL LEVEL Routine 04/18/2007 10:48 AM CDT COMPREHENSIVE METABOLIC PANEL Routine 04/18/2007 10:48 AM CDT DRUG SCREEN, URINE Routine 04/18/2007 9: 47 AM CDT documented in this encounter Results * URINALYSIS (04/22/2007 9:05 AM TRANSPORT TRUCK DRIVER) COLOR UA Yellow Straw INTERFACE SYSTEM CLARITY [...] No No INTERFACE SYSTEM 04/22/2007 9:05 AM TRANSPORT TRUCK DRIVER us Pawan Rosario MD URINE ORDERABLES Edited Performing Organization Address [facility] Phone Number INTERFACE SYSTEM Refer to clinic/hospital department * LIPASE (04/18/2007 10:54 AM CDT) LIPASE 36 6 - 51 U/L INTERFACE SYSTEM 04/18/2007 10:5 4 AM CDT Benedicto Rojo MD CHEMISTRY ORDERABLES Edited Performing Organization Address [facility] Phone Number INTERFACE SYSTEM Refer to clinic/hospital department * AMYLASE (04/18/2007 10:54 AM CDT) AMYLASE 46 20 - 104 U/L INTERFACE SYSTEM 04/18/2007 10:5 4 AM CDT Benedicto Rojo MD CHEMISTRY ORDERABLES Edited Performing Organization Address [facility] Phone Number INTERFACE SYSTEM [...] Comment: As of 04 at 3:00 p.m. [facility] has changed the methodology for TSH, and with this change the reference range has changed from 0.49-4.67 to 0.35-5.5 uIU/ml. 04/18/2007 10:4 8 AM CDT Benedicto Rojo MD CHEMISTRY ORDERABLES Edited Performing Organization Address [facility] Phone Number INTERFACE SYSTEM [...] MD CHEMISTRY ORDERABLES Edited Performing Organization Address [facility] Phone Number INTERFACE SYSTEM Refer to clinic/hospital department * ETHANOL (04/18/2007 10:48 AM CDT) ETHANOL <10 <=10 mg/dL INTERFACE SYSTEM ETHANOL % <0.010 <=0.010 % INTERFACE SYSTEM Comment: Beginning August 01, 2006, the Blood Alcohol from [facility] will be reported in % as well as mg/dl. 04/18/2007 10:4 8 AM CDT Benedicto Rojo MD CHEMISTRY ORDERABLES Edited Performing Organization Address [facility] Phone Number INTERFACE SYSTEM Refer [...] URINE ORDERABLES Edited Performing Organization Address [facility] Phone Number INTERFACE SYSTEM Refer to clinic/hospital department documented in this encounter Visit Diagnoses Diagnosis Bipolar I disorder, most recent episode (or current) mixed, severe, specified as with psychotic behavior ([facility])- Primary Bipolar I disorder, most recent episode (or current) mixed, severe, specified as with psychotic behavior documented in this encounter Additional Health Concerns Infection Onset Date Last Indicated Resolved Time VRE Comment:Urine 10/30/13 Resolved 11/04/2013 11/04/2013 8 10:33 AM TRANSPORT TRUCK DRIVER R/O COVID-19 12/25/2019 12/25/2019 12/26/2019 2:46 PM CDT R/O COVID-19 05/09/2020 05/09/2020 05/09/2020 12:1 7 PM TRANSPORT TRUCK DRIVER documented as of this encounter Care Teams Stitch Bonder Machine Operator Helper Relationship Specialty Start Date End Date Dara Tavera FNP [address] [place] [phone] PCP - General NURSE PRACTITIONER 10/13/18 documented as of this encounter
--- OUTSIDE RECORDS SUMMARY | 2025-05-11 21:58 | XMS_ITS | Encounter Summary ---
Author Organization [facility] Address [address] [place] [address] Care Team Providers Care Railway Traction Line Worker Name Role Phone Dara Tavera AMANDEEP Primary Care Provider Encounter Details Date Type Department Care Team (Late st Contact Info) Description 04/13/2007 Emergency [facility] Emergency Department [address] [place] [address] Flex Ricks MD NO ADDRESS ON FILE Other and Unspecified Noninfectious Gastroenteritis and Colitis (Primary Dx) Social History Tobacco Use Types Packs/Day Years Used Date Smoking Tobacco: Never Assessed Comments Unknown Sex and Gender Information Value Date Recorded Sex Assigned at Not on file Legal Sex Female 5:22 AM WIRE MACHINE OPERATOR Gender Identity Not on file [...] Resolved 11/04/2013 11/04/2013 8 10:33 AM WIRE MACHINE OPERATOR R/O COVID-19 12/25/2019 12/25/2019 12/26/2019 2:46 PM CDT R/O COVID-19 05/09/2020 05/09/2020 05/09/2020 12:1 7 PM WIRE MACHINE OPERATOR documented as of this encounter Care Teams Railway Traction Line Worker Relationship Specialty Start Date End Date Dara Tavera FNP [address] [place] [phone] PCP - General NURSE PRACTITIONER 10/13/18 documented as of this encounter
--- OUTSIDE RECORDS SUMMARY | 2025-05-11 21:58 | XMS_ITS | Encounter Summary ---
Author Organization [facility] Address [address] [place] [address] Care Team Providers Care Supervisor Prep Name Role Phone Dara Tavera Primary Care Provider Encounter Details Date Type Department Care Team (Latest Contact Info) Description 12/16/2005 Outpatient Historical [facility] Ambulance [address] [place] [address] AMBULANCE, [facility] Unspecified Nonpsychotic Mental Disorder (Primary Dx) Social History Tobacco Use Types Packs/Day Years Used Date Smoking Tobacco: Never Assessed Comments Unknown Sex and Gender Information Value Date Recorded Sex Assigned at Not on file Legal Sex Female 5:22 AM AUTOMOBILE SALES CONSULTANT Gender Identity Not on file Sexual Orientation Not on file documented as of this encounter Plan of Treatment Not on file documented as of this encounter Visit Diagnoses Diagnosis Unspecified nonpsychotic mental disorder- Primary documented in this encounter Additional Health Concerns Infection Onset Date Last Indicated Resolved Time VRE Comment:Urine 10/30/13 Resolved 11/04/2013 11/04/2013 8 10:33 AM AUTOMOBILE SALES CONSULTANT R/O COVID-19 12/25/2019 12/25/2019 12/26/2019 2:46 PM CDT R/O COVID-19 05/09/2020 05/09/2020 05/09/2020 12:1 7 PM AUTOMOBILE SALES CONSULTANT documented as of this encounter Care Teams Supervisor Prep Relationship Specialty Start Date End Date Dara Tavera FNP [address] [place] [phone] PCP - General NURSE PRACTITIONER 10/13/18 documented as of this encounter
--- OUTSIDE RECORDS SUMMARY | 2025-05-11 21:58 | XMS_ITS | Encounter Summary ---
Author Organization [facility] Address [address] [place] [address] Care Team Providers Care Body Repairer Name Role Phone Dara Tavera Primary Care Provider Encounter Details Date Type Department Care Team (Latest Contact Info) Description 02/07/2006 Outpatient Historical [facility] Medicine [place] [address] [facility] [address] [place] [address] Ryan Don NP NO ADDRESS ON FILE Polydipsia (Primary Dx); Nausea Alone; Open Wnd Anterior Abdomen Social History Tobacco Use Types Packs/Day Years Used Date Smoking Tobacco: Never Assessed Comments Unknown Sex and Gender Information Value Date Recorded Sex Assigned at Not on file Legal Sex Female 5:22 AM EMTS Gender Identity Not on file Sexual Orientation [...] 10/30/13 Resolved 11/04/2013 11/04/2013 8 10:33 AM EMTS R/O COVID-19 12/25/2019 12/25/2019 12/26/2019 2:46 PM CDT R/O COVID-19 05/09/2020 05/09/2020 05/09/2020 12:1 7 PM EMTS documented as of this encounter Care Teams Body Repairer Relationship Specialty Start Date End Date Dara Tavera FNP [address] [place] [address] PCP - General NURSE PRACTITIONER 10/13/18 documented as of this encounter
--- OUTSIDE RECORDS SUMMARY | 2025-05-11 21:58 | XMS_ITS | Encounter Summary ---
Author Organization [facility] Address [address] [place] [address] Care Team Providers Care Tube Molder Fiberglass Name Role Phone Dara Tavera AMANDEEP Primary Care Provider Encounter Details Date Type Department Care Team (Late st Contact Info) Description 04/04/2007 Emergency [facility] Emergency Department [address] [place] [address] Thiago Mota MD NO ADDRESS ON FILE Painful Respiration (Primary Dx) Social History Tobacco Use Types Packs/Day Years Used Date Smoking Tobacco: Never Assessed Comments Unknown Sex and Gender Information Value Date Recorded Sex Assigned at Not on file Legal Sex Female 5:22 AM AUTOMATIC EMBROIDERY MACHINE TENDER Gender Identity Not on file [...] MD URINE ORDERABLES Edited Performing Organization Address [facility] Phone Number INTERFACE SYSTEM Refer to clinic/hospital [...] MD CHEMISTRY ORDERABLES Edited Performing Organization Address [facility] Phone Number INTERFACE SYSTEM Refer to clinic/hospital department documented in this encounter Visit Diagnoses Diagnosis Painful respiration- Primary documented in this encounter Additional Health Concerns Infection Onset Date Last Indicated Resolved Time VRE Comment:Urine 10/30/13 Resolved 11/04/2013 11/04/2013 8 10:33 AM AUTOMATIC EMBROIDERY MACHINE TENDER R/O COVID-19 12/25/2019 12/25/2019 12/26/2019 2:46 PM CDT R/O COVID-19 05/09/2020 05/09/202005/09/2020 12:1 7 PM AUTOMATIC EMBROIDERY MACHINE TENDER documented as of this encounter Care Teams Tube Molder Fiberglass Relationship Specialty Start Date End Date Dara Tavera FNP [address] [place] [phone] PCP - General NURSE PRACTITIONER 10/13/18 documented as of this encounter
--- OUTSIDE RECORDS SUMMARY | 2025-05-11 21:58 | XMS_ITS | Encounter Summary ---
Author Organization [facility] Address [address] [place] [address] Care Team Providers Care Register In Chancery Name Role Phone Dara Tavera AMANDEEP Primary Care Provider Encounter Details Date Type Department Care Team (Late st Contact Info) Description 05/16/2007 Emergency [facility] Emergency Department [address] [place] [address] Ed, Physician NO ADDRESS ON FILE Thiago Mota MD NO ADDRESS ON FILE Social History Tobacco Use Types Packs/Day Years Used Date Smoking Tobacco: Never Assessed Comments Unknown Sex and Gender Information Value Date Recorded Sex Assigned at Not on file Legal Sex Female 5:22 AM WINDOW TREATMENT INSTALLER Gender Identity Not on file Sexual Orientation Not on file documented as of this encounter Plan of Treatment Not on file documented as of this encounter Procedures Procedure Name Priority Date/Time Associated Diagnosis Comments URINALYSIS MICROSCOPY ONLY Routine 05/16/2007 4:37 PM WINDOW TREATMENT INSTALLER URINALYSIS W/REFLEX MICROSCOPIC Routine 05/16/2007 4:37 PM WINDOW TREATMENT INSTALLER CBC WITH DIFFERENTIAL Routine 05/16/2007 4:32 PM WINDOW TREATMENT INSTALLER LIPASE Routine 05/16/2007 4:32 PM WINDOW TREATMENT INSTALLER AMYLASE Routine 05/16/2007 4:32 PM WINDOW TREATMENT INSTALLER COMPREHENSIVE METABOLIC PANEL Routine 05/16/2007 4:32 PM WINDOW TREATMENT INSTALLER documented in this encounter Results * (ABNORMAL) URINALYSIS (05/16/2007 4:37 PM WINDOW TREATMENT INSTALLER) COLOR UA Yellow Straw INTERFACE SYSTEM CLARITY [...] Yes(A) No INTERFACE SYSTEM 05/16/2007 4:37 PM WINDOW TREATMENT INSTALLER us Thiago Mota MD URINE ORDERABLES Edited Performing Organization Address [facility] Phone Number INTERFACE SYSTEM Refer to clinic/hospital department * (ABNORMAL) URINALYSIS MICROSCOPY ONLY (05/16/2007 4:37 PM WINDOW TREATMENT INSTALLER) WBC URINE None Seen 0 - 2 INTERFACE SYSTEM RBC UA None Seen 0 - 2 INTERFACE SYSTEM HYALINE CAST None Seen 0 - 2 INTERFA CE SYSTEM BACTERIA UA Few(A) None Seen INTERFAC E SYSTEM 05/16/2007 4:37 PM WINDOW TREATMENT INSTALLER us Thiago Mota MD URINE ORDERABLES Edited Performing Organization Address [facility] Phone Number INTERFACE SYSTEM Refer to clinic/hospital department * LIPASE (05/16/2007 4:32 PM WINDOW TREATMENT INSTALLER) LIPASE 27 6 - 51 U/L INTERFACE SYSTEM 05/16/2007 4:32 PM WINDOW TREATMENT INSTALLER us Thiago Mota MD CHEMISTRY ORDERABLES Edited Performing Organization Address [facility] Phone Number INTERFACE SYSTEM Refer to clinic/hospital department * AMYLASE (05/16/2007 4:32 PM WINDOW TREATMENT INSTALLER) AMYLASE 48 20 - 104 U/L INTERFACE SYSTEM 05/16/2007 4:32 PM WINDOW TREATMENT INSTALLER us Thiago Mota MD CHEMISTRY ORDERABLES Edited Performing Organization Address [facility] Phone Number INTERFACE SYSTEM Refer to clinic/hospital department * (ABNORMAL) COMPREHENSIVE METABOLIC PANEL (05/16/2007 4:32 PM WINDOW TREATMENT INSTALLER) GLOBULIN (CALC) 3.0 2.4 - 3.9 g/dL [...] 295 mOsm/Kg INTERFACE SYSTEM 05/16/2007 4:32 PM WINDOW TREATMENT INSTALLER us Thiago Mota MD CHEMISTRY ORDERABLES Edited Performing Organization Address [facility] Co de Phone Number INTERFACE SYSTEM Refer to clinic/hospital department * (ABNORMAL) CBC WITH DIFFERENTIAL (05/16/2007 4:32 PM WINDOW TREATMENT INSTALLER) WBC 13.2(H) 4.5 - 11.0 K/ul INTERFACE [...] 0.2 K/ul INTERFACE SYSTEM 05/16/2007 4:32 PM WINDOW TREATMENT INSTALLER Thiago Mota MD HEMATOLOGY ORDERABLES Edited INTERFACE SYSTEM Refer to clinic/hospital department documented in this encounter Visit Diagnoses Not on filedocumented in this encounter Additional Health Concerns Infection Onset Date Last Indicated Resolved Time VRE Comment:Urine 10/30/13 Resolved 11/04/2013 11/04/2013 8 10:33 AM WINDOW TREATMENT INSTALLER R/O COVID-19 12/25/2019 12/25/2019 12/26/2019 2:46 PM CDT R/O COVID-19 05/09/2020 05/09/2020 05/09/2020 12:1 7 PM WINDOW TREATMENT INSTALLER documented as of this encounter Care Teams Register In Chancery Relationship Specialty Start Date End Date Dara Tavera FNP [address] [place] [phone] PCP - General NURSE PRACTITIONER 10/13/18 documented as of this encounter
--- OUTSIDE RECORDS SUMMARY | 2025-05-11 21:58 | XMS_ITS | Encounter Summary ---
Author Organization [facility] Address [address] [place] [address] Care Team Providers Care Iron Launder Operator Name Role Phone Dara Tavera AMANDEEP Primary Care Provider Encounter Details Date Type Department Care Team (Late st Contact Info) Description 04/04/2007 Outpatient [facility] [address] [place] [address] AMBULANCE, [facility] Unspecified Chest Pain (Primary Dx) Social History Tobacco Use Types Packs/Day Years Used Date Smoking Tobacco: Never Assessed Comments Unknown Sex and Gender Information Value Date Recorded Sex Assigned at Not on file Legal Sex Female 5:22 AM METALLURGICAL ENGINEERING TEACHER Gender Identity Not on file Sexual [...] 10/30/13 Resolved 11/04/2013 11/04/2013 8 10:33 AM METALLURGICAL ENGINEERING TEACHER R/O COVID-19 12/25/2019 12/25/2019 12/26/2019 2:46 PM CDT R/O COVID-19 05/09/2020 05/09/2020 05/09/2020 12:1 7 PM METALLURGICAL ENGINEERING TEACHER documented as of this encounter Care Teams Iron Launder Operator Relationship Specialty Start Date End Date Dara Tavera FNP [address] [place] [phone] PCP - General NURSE PRACTITIONER 10/13/18 documented as of this encounter
--- OUTSIDE RECORDS SUMMARY | 2025-05-11 21:58 | XMS_ITS | Encounter Summary ---
Author Organization [facility] Address [address] [place] [address] Care Team Providers Care Chief Dietitian Name Role Phone Dara Tavera Primary Care Provider [phone] Encounter Details Date Type Department Care Team (Latest Contact Info) Description 07/18/2005 Outpatient Historical [facility] [address] [place] [address] Faiza Petersen MD NO ADDRESS ON FILE PREOP EXAM OTHER UNSPECIFIED (Primary Dx); ESOPHAGEAL REFLUX; CHEST PAIN NEC Social History Tobacco Use Types Packs/Day Years Used Date Smoking Tobacco: Never Assessed Comments Unknown Sex and Gender Information Value Date Recorded Sex Assigned at Not on file Legal Sex Female 5:22 AM POWER TONG OPERATOR Gender Identity Not on file Sexual Orientation Not on file documented as of this encounter Plan of Treatment Not on file documented as of this encounter Visit Diagnoses Diagnosis Preoperative examination, unspecified- Primary Esophageal reflux Other chest pain documented in this encounter Additional Health Concerns Infection Onset Date Last Indicated Resolved Time VRE Comment:Urine 10/30/13 Resolved 11/04/2013 11/04/2013 8 10:33 AM POWER TONG OPERATOR R/O COVID-19 12/25/2019 12/25/2019 12/26/2019 2:46 PM CDT R/O COVID-19 05/09/2020 05/09/2020 05/09/2020 12:1 7 PM POWER TONG OPERATOR documented as of this encounter Care Teams Chief Dietitian Relationship Specialty Start Date End Date Dara Tavera FNP [address] [place] [address] PCP - General NURSE PRACTITIONER 10/13/18 documented as of this encounter
--- OUTSIDE RECORDS SUMMARY | 2025-05-11 21:58 | XMS_ITS | Encounter Summary ---
Author Organization [facility] Address [address] [place] [address] Care Team Providers Care Small Business Banking Officer Name Role Phone Dara Tavera Primary Care Provider Encounter Details Date Type Department Care Team (Latest Contact Info) Description 09/19/2005 Outpatient Historical [facility] [address] [place] [address] AMBULANCE, [facility] Unspecified Hemorrhage (Primary Dx) Social History Tobacco Use Types Packs/Day Years Used Date Smoking Tobacco: Never Assessed Comments Unknown Sex and Gender Information Value Date Recorded Sex Assigned at Not on file Legal Sex Female 5:22 AM AIR CONDITIONING MECHANIC Gender Identity Not on file Sexual Orientation Not on file documented as of this encounter Plan of Treatment Not on file documented as of this encounter Visit Diagnoses Diagnosis Hemorrhage, unspecified- Primary documented in this encounter Additional Health Concerns Infection Onset Date Last Indicated Resolved Time VRE Comment:Urine 10/30/13 Resolved 11/04/2013 11/04/2013 8 10:33 AM AIR CONDITIONING MECHANIC R/O COVID-19 12/25/2019 12/25/2019 12/26/2019 2:46 PM CDT R/O COVID-19 05/09/2020 05/09/2020 05/09/2020 12:1 7 PM AIR CONDITIONING MECHANIC documented as of this encounter Care Teams Small Business Banking Officer Relationship Specialty Start Date End Date Dara Tavera FNP [address] [place] [address] PCP - General NURSE PRACTITIONER 10/13/18 documented as of this encounter
--- OUTSIDE RECORDS SUMMARY | 2025-05-11 21:58 | XMS_ITS | Encounter Summary ---
Author Organization [facility] Address [address] [place] [address] Care Team Providers Care Utilities Manager Name Role Phone Dara Tavera MAXILLOFACIAL PROSTHETICS DENTIST Primary Care Provider [phone] Encounter Details Date Type Department Care Team (Late st Contact Info) Description 06/17/2007 Outpatient Historical [facility] Sammi Justice MD [address] [place] [address] Murphy Espitia MD NO ADDRESS [...] on file Legal Sex Female 5:22 AM CAM SPECIALIST Gender Identity Not on file Sexual Orientation Not on file documented as of this encounter Plan of Treatment Not on file documented as of this encounter Procedures Procedure Name Priority Date/Time Associated Diagnosis Comments CBC WITH DIFFERENTIAL Routine 06/20/2007 4:40 AM CAM SPECIALIST BASIC METABOLIC PANEL Routine 06/20/2007 4:40 AM CAM SPECIALIST URINALYSIS W/REFLEX MICROSCOPIC Routine 06/19/2007 5:59 AM CAM SPECIALIST CARDIAC ENZYMES Routine 06/18/2007 7:40 AM CAM SPECIALIST CARDIAC ENZYMES Routine 06/18/2007 1:45 AM CAM SPECIALIST CBC WITH DIFFERENTIAL Routine 06/18/2007 1:45 AM CAM SPECIALIST TSH Routine 06/18/2007 1:45 AM CAM SPECIALIST COMPREHENSIVE METABOLIC PANEL Routine 06/18/2007 1:45 AM CAM SPECIALIST PT AND APTT Routine 06/17/2007 7:50 PM CAM SPECIALIST CARDIAC ENZYMES Routine 06/17/2007 7:50 PM CAM SPECIALIST CBC WITH DIFFERENTIAL Routine 06/17/2007 7:50 PM CAM SPECIALIST BRAIN NATRIURETIC PEPTIDE, BNP OR PROBNP Routine 06/17/2007 7:50 PM CAM SPECIALIST BASIC METABOLIC PANEL Routine 06/17/2007 7:50 PM CAM SPECIALIST POC BLOOD GAS, LYTES AND H+H Routine 06/17/2007 6:48 PM CAM SPECIALIST documented in this encounter Results * BASIC METABOLIC PANEL (06/20/2007 4:40 AM CAM SPECIALIST) GLUCOSE 99 70 - 110 mg/dL INTERFACE [...] 295 mOsm/Kg INTERFACE SYSTEM 06/20/2007 4:40 AM CAM SPECIALIST us Murphy Espitia MD CHEMISTRY ORDERABLES Edited INTERFACE SYSTEM Refer to clinic/hospital department * (ABNORMAL) CBC WITH DIFFERENTIAL (06/20/2007 4:40 AM CAM SPECIALIST) WBC 10.6 4.5 - 11.0 K/ul INTERFACE [...] 0.2 K/ul INTERFACE SYSTEM 06/20/2007 4:40 AM CAM SPECIALIST us Murphy Espitia MD HEMATOLOGY ORDERABLES Edited INTERFACE SYSTEM Refer to clinic/hospital department * URINALYSIS (06/19/2007 5:59 AM CAM SPECIALIST) COLOR UA Yellow Straw INTERFACE SYSTEM [...] No No INTERFACE SYSTEM 06/19/2007 5:59 AM CAM SPECIALIST Murphy Espitia MD URINE ORDERABLES Edited Performing Organization Address [facility] Phone Number INTERFACE SYSTEM Refer to clinic/hospital department * CARDIAC ENZYMES (06/18/2007 7:40 AM CAM SPECIALIST) TROPONIN I <0.1 0.0 - 1.3 ng/mL INTERFACE SYSTEM CKMB 1.9 0.0 - 5.0 ng/mL INTERFACE SYSTEM 06/18/2007 7:40 AM CAM SPECIALIST Sammi Justice MD CHEMISTRY ORDERABLES Edited Performing Organization Address [facility] Phone Number INTERFACE SYSTEM Refer to clinic/hospital department * TSH (06/18/2007 1:45 AM CAM SPECIALIST) TSH 0.530 0.350 - 5.500 uIU/ml INTERFACE SYSTEM 06/18/2007 1:45 AM CAM SPECIALIST Murphy Espitia MD CHEMISTRY ORDERABLES Edited Performing Organization Address [facility] Phone Number INTERFACE SYSTEM Refer to clinic/hospital department * (ABNORMAL) COMPREHENSIVE METABOLIC PANEL (06/18/2007 1:45 AM CAM SPECIALIST) GLUCOSE 227(H) 70 - 110 mg/dL INTERFACE [...] 295 mOsm/Kg INTERFACE SYSTEM 06/18/2007 1:45 AM CAM SPECIALIST us Murphy Espitia MD CHEMISTRY ORDERABLES Edited INTERFACE SYSTEM Refer to clinic/hospital department * (ABNORMAL) CBC WITH DIFFERENTIAL (06/18/2007 1:45 AM CAM SPECIALIST) WBC 22.9(H) 4.5 - 11.0 K/ul INTERFACE [...] 0.2 K/ul INTERFACE SYSTEM 06/18/2007 1:45 AM CAM SPECIALIST Murphy Espitia MD HEMATOLOGY ORDERABLES Edited Performing Organization Address [facility] Phone Number INTERFACE SYSTEM Refer to clinic/hospital department * CARDIAC ENZYMES (06/18/2007 1:45 AM CAM SPECIALIST) TROPONIN I <0.1 0.0 - 1.3 ng/mL INTERFACE SYSTEM CKMB 1.7 0.0 - 5.0 ng/mL INTERFACE SYSTEM 06/18/2007 1:45 AM CAM SPECIALIST Sammi Justice MD CHEMISTRY ORDERABLES Edited Performing Organization Address [facility] Phone Number INTERFACE SYSTEM Refer to clinic/hospital department * (ABNORMAL) BRAIN NATRIURETIC PEPTIDE, BNP OR PROBNP (06/17/2007 7:50 PM CAM SPECIALIST) BRAIN NATRIURETIC PEPTIDE 211(H) 0 - 125 pg/mL INTERFACE SYSTEM 06/17/2007 7:50 PM CAM SPECIALIST Sammi Justice MD CHEMISTRY ORDERABLES Edited Performing Organization Address [facility] Phone Number INTERFACE SYSTEM Refer to clinic/hospital department * PT AND APTT (06/17/2007 7:50 PM CAM SPECIALIST) PROTIME 14.4 12.8 - 15.8 Secs INTERFACE SYSTEM INR 1.0 INTERFACE SYSTEM PTT 34.9 21.6 - 35.6 Secs INTERFACE SYSTEM 06/17/2007 7:50 PM CAM SPECIALIST us Sammi Justice MD HEMATOLOGY ORDERABLES Edite d Performing Organization Address [facility] Phone Number INTERFACE SYSTEM Refer to clinic/hospital department * CARDIAC ENZYMES (06/17/2007 7:50 PM CAM SPECIALIST) TROPONIN I <0.1 0.0 - 1.3 ng/mL INTERFACE SYSTEM CKMB 2.7 0.0 - 5.0 ng/mL INTERFACE SYSTEM 06/17/2007 7:50 PM CAM SPECIALIST Sammi Justice MD CHEMISTRY ORDERABLES Edited Performing Organization Address [facility] Phone Number INTERFACE SYSTEM Refer to clinic/hospital department * (ABNORMAL) BASIC METABOLIC PANEL (06/17/2007 7:50 PM CAM SPECIALIST) GLUCOSE 143(H) 70 - 110 mg/dL INTERFACE [...] 295 mOsm/Kg INTERFACE SYSTEM 06/17/2007 7:50 PM CAM SPECIALIST Sammi Justice MD CHEMISTRY ORDERABLES Edited Performing Organization Address [facility] Phone Number INTERFACE SYSTEM Refer to clinic/hospital department * (ABNORMAL) CBC WITH DIFFERENTIAL (06/17/2007 7:50 PM CAM SPECIALIST) WBC 20.9(H) 4.5 - 11.0 K/ul INTERFACE [...] 0.2 K/ul INTERFACE SYSTEM 06/17/2007 7:50 PM CAM SPECIALIST us Sammi Justice MD HEMATOLOGY ORDERABLES Edite d INTERFACE SYSTEM Refer to clinic/hospital department * (ABNORMAL) POC ISTAT EG 7+ (06/17/2007 6:48 PM CAM SPECIALIST) SPECIMEN TYPE Arterial INTERF SHANTE SYSTEM Comment: Test Performed By [id number] Pulse OX: 96 Hemoglobin calculated from Hematocrit [...] 1.32 mmol/l INTERFACE SYSTEM 06/17/2007 6:48 PM CAM SPECIALIST Murphy Espitia MD POINT OF CARE TESTING COM Edite d INTERFACE SYSTEM Refer to clinic/hospital department documented in this encounter Visit Diagnoses Diagnosis Unspecified asthma, with exacerbation Bipolar I disorder, most recent episode (or current) depressed, unspecified ([facility]) Bipolar I disorder, most recent episode (or current) depressed, unspecified Tobacco use disorder Obesity, unspecified Hypopotassemia Hypoxemia documented in this encounter Additional Health Concerns Infection Onset Date Last Indicated Resolved Time VRE Comment:Urine 10/30/13 Resolved 11/04/2013 11/04/2013 8 10:33 AM CAM SPECIALIST R/O COVID-19 12/25/2019 12/25/2019 12/26/2019 2:46 PM CDT R/O COVID-19 05/09/2020 05/09/2020 05/09/2020 12:1 7 PM CAM SPECIALIST documented as of this encounter Care Teams Utilities Manager Relationship Specialty Start Date End Date Dara Tavera FNP [address] [place] [phone] PCP - General NURSE PRACTITIONER 10/13/18 documented as of this encounter
--- OUTSIDE RECORDS SUMMARY | 2025-05-11 21:58 | XMS_ITS | Encounter Summary ---
Author Organization [facility] Address [address] [place] [address] Care Team Providers Care Podiatric Medicine Professor Name Role Phone Dara Tavera Primary Care Provider Encounter Details Date Type Department Care Team (Latest Contact Info) Description 09/19/2005 Outpatient Historical [facility] [address] [place] [address] AMBULANCE, [facility] Hemorrhage Complicating a Procedure (Primary Dx) Social History Tobacco Use Types Packs/Day Years Used Date Smoking Tobacco: Never Assessed Comments Unknown Sex and Gender Information Value Date Recorded Sex Assigned at Not on file Legal Sex Female 5:22 AM GREIGE MENDER Gender Identity Not on file Sexual Orientation Not on file documented as of this encounter Plan of Treatment Not on file documented as of this encounter Visit Diagnoses Diagnosis Hemorrhage complicating a procedure- Primary documented in this encounter Additional Health Concerns Infection Onset Date Last Indicated Resolved Time VRE Comment:Urine 10/30/13 Resolved 11/04/2013 11/04/2013 8 10:33 AM GREIGE MENDER R/O COVID-19 12/25/2019 12/25/2019 12/26/2019 2:46 PM CDT R/O COVID-19 05/09/2020 05/09/2020 05/09/2020 12:1 7 PM GREIGE MENDER documented as of this encounter Care Teams Podiatric Medicine Professor Relationship Specialty Start Date End Date Dara Tavera FNP [address] [place] [address] PCP - General NURSE PRACTITIONER 10/13/18 documented as of this encounter
--- OUTSIDE RECORDS SUMMARY | 2025-05-11 21:58 | XMS_ITS | Encounter Summary ---
Author Organization [facility] Address [address] [place] [address] Care Team Providers Care Inside Sales Associate Name Role Phone Dara Tavera AMANDEEP Primary Care Provider Encounter Details Date Type Department Care Team (Late st Contact Info) Description 05/21/2007 Emergency [facility] [address] [place] [address] Ed, Physician NO ADDRESS ON FILE Rory Lynn MD NO ADDRESS ON FILE Social History Tobacco Use Types Packs/Day Years Used Date Smoking Tobacco: Never Assessed Comments Unknown Sex and Gender Information Value Date Recorded Sex Assigned at Not on file Legal Sex Female 5:22 AM LNA Gender Identity Not on file Sexual Orientation Not on file documented as of this encounter Plan of Treatment Not on file documented as of this encounter Procedures Procedure Name Priority Date/Time Associated Diagnosis Comments CBC WITH DIFFERENTIAL Routine 05/21/2007 6:18 PM LNA documented in this encounter Results * (ABNORMAL) CBC WITH DIFFERENTIAL (05/21/2007 6:18 PM LNA) WBC 9.5 4.5 - 11.0 K/ul INTERFACE [...] 0.2 K/ul INTERFACE SYSTEM 05/21/2007 6:18 PM LNA us Rory Lynn MD HEMATOLOGY ORDERABLES [place] earl INTERFACE SYSTEM Refer to clinic/hospital department documented in this encounter Visit Diagnoses Not on filedocumented in this encounter Additional Health Concerns Infection Onset Date Last Indicated Resolved Time VRE Comment:Urine 10/30/13 Resolved 11/04/2013 11/04/2013 8 10:33 AM LNA R/O COVID-19 12/25/2019 12/25/2019 12/26/2019 2:46 PM CDT R/O COVID-19 05/09/2020 05/09/2020 05/09/2020 12:1 7 PM LNA documented as of this encounter Care Teams Inside Sales Associate Relationship Specialty Start Date End Date Dara Tavera FNP [address] [place] [address] PCP - General NURSE PRACTITIONER 10/13/18 documented as of this encounter
--- OUTSIDE RECORDS SUMMARY | 2025-05-11 21:58 | XMS_ITS | Encounter Summary ---
Author Organization [facility] Address [address] [place] [address] Care Team Providers Care Rn Burn Name Role Phone Dara Tavera Primary Care Provider [phone] Encounter Details Date Type Department Care Team (Latest Contact Info) Description 08/31/2005 Outpatient Historical [facility] [address] [place] [address] AMBULANCE, [facility] Other Injury of Abdomen (Primary Dx) Social History Tobacco Use Types Packs/Day Years Used Date Smoking Tobacco: Never Assessed Comments Unknown Sex and Gender Information Value Date Recorded Sex Assigned at Not on file Legal Sex Female 5:22 AM SKEIN TIER Gender Identity Not on file Sexual Orientation Not on file documented as of this encounter Plan of Treatment Not on file documented as of this encounter Visit Diagnoses Diagnosis Other injury of abdomen- Primary documented in this encounter Additional Health Concerns Infection Onset Date Last Indicated Resolved Time VRE Comment:Urine 10/30/13 Resolved 11/04/2013 11/04/2013 8 10:33 AM SKEIN TIER R/O COVID-19 12/25/2019 12/25/2019 12/26/2019 2:46 PM CDT R/O COVID-19 05/09/2020 05/09/2020 05/09/2020 12:1 7 PM SKEIN TIER documented as of this encounter Care Teams Rn Burn Relationship Specialty Start Date End Date aDra Tavera FNP [address] [place] [address] PCP - General NURSE PRACTITIONER 10/13/18 documented as of this encounter
--- OUTSIDE RECORDS SUMMARY | 2025-05-11 21:58 | XMS_ITS | Clinical Summary ---
Author Organization [facility] Address [address] [place] [address] Care Team Providers Care Medical Data Entry Clerk Name Role Phone Dara Tavera CUSTOMER CONTACT SALES ASSOCIATE Primary Care Provider Allergies Active Allergy Reactions Criticality Noted Date Comments Adhesive Rash Low 02/12/2009 Codeine Nausea and Vomiting Low 02/12/2009 Duloxetine Other (See Comments) 02/24/2015 Fentanyl Hives High 11/07/2019 Fluoxetine Unknown 10/20/2018 Gabapentin Unknown,Hallucination Low 02/12/2009 Influenza Virus Vaccine Qv 0419-2374 (36 Mos+) Other (See Comments) 06/19/2014 pneumonia Ketorolac Tromethamine Other (See Comments) Low Adverse drug reaction [place] Unknown 02/12/2009 Other reaction(s): shakey Penicillins Rash [...] 9 Active fluticasone propionate (FLONASE) 50 mcg/spray [place], Suspension nasal inhaler Administer 2 Sprays in [...] 07/07/2009 0 10/26/2012 Personal history of MRSA (al thicillin resistant Staphylococcus aureus) 06/27/2009 018 Overview [...] asked 05/05/2019 How often do you attend uatsdin or zoroastrianism serv ices? Not asked 05/05/2019 Do you belong to any clubs o r organizations such as uatsdin groups, unions, fraternal or athletic groups, or [...] file Legal Sex Female 5:22 AM RESEARCH INTERVIEWER Gender Identity Not on file Sexual Orientation [...] Advance Directives For more information, please contact: [phone] Documents on File Type Date Recorded Patient Header Set Up Operator Expl anation Advance Directive Living Will 03/11/2015 [...] 6:26 AM 06/22/2018 8:41 PM Care Teams Medical Data Entry Clerk Relationship Specialty Start Date End Date Dara Tavera FNP [address] [place] [address] PCP - General NURSE PRACTITIONER 10/13/18
--- OUTSIDE RECORDS SUMMARY | 2025-05-11 21:58 | XMS_ITS | Encounter Summary ---
Author Organization [facility] Address [address] [place] [address] Care Team Providers Care Adult Daycare Coordinator Name Role Phone Dara Tavera Primary Care Provider [phone] Encounter Details Date Type Department Care Team (Latest Contact Info) Description 02/07/2007 Outpatient Historical [facility] [address] [place] [address] AMBULANCE, [facility] Unspecified Nonpsychotic Mental Disorder (Primary Dx) Social History Tobacco Use Types Packs/Day Years Used Date Smoking Tobacco: Never Assessed Comments Unknown Sex and Gender Information Value Date Recorded Sex Assigned at Not on file Legal Sex Female 5:22 AM RADAR MECHANIC Gender Identity Not on file Sexual Orientation Not on file documented as of this encounter Plan of Treatment Not on file documented as of this encounter Visit Diagnoses Diagnosis Unspecified nonpsychotic mental disorder- Primary documented in this encounter Additional Health Concerns Infection Onset Date Last Indicated Resolved Time VRE Comment:Urine 10/30/13 Resolved 11/04/2013 11/04/2013 8 10:33 AM RADAR MECHANIC R/O COVID-19 12/25/2019 12/25/2019 12/26/2019 2:46 PM CDT R/O COVID-19 05/09/2020 05/09/2020 05/09/2020 12:1 7 PM RADAR MECHANIC documented as of this encounter Care Teams Adult Daycare Coordinator Relationship Specialty Start Date End Date Dara Tavera FNP [address] [place] [phone] PCP - General NURSE PRACTITIONER 10/13/18 documented as of this encounter
--- OUTSIDE RECORDS SUMMARY | 2025-05-11 21:58 | XMS_ITS | Encounter Summary ---
Author Organization [facility] Address [address] [place] [address] Care Team Providers Care Natural Gas Field Processing Supervisor Name Role Phone Dara Tavera Primary Care Provider Encounter Details Date Type Department Care Team (Latest Contact Info) Description 08/21/2005 Outpatient Historical [facility] [address] [place] [address] AMBULANCE, [facility] DISRUPT OF EXTERNAL OPERATION WOUND (Primary Dx) Social History Tobacco Use Types Packs/Day Years Used Date Smoking Tobacco: Never Assessed Comments Unknown Sex and Gender Information Value Date Recorded Sex Assigned at Not on file Legal Sex Female 5:22 AM TUCKPOINTER CLEANER CAULKER Gender Identity Not on file Sexual Orientation Not on file documented as of this encounter Plan of Treatment Not on file documented as of this encounter Visit Diagnoses Diagnosis Disruption of external operation (surgical) wound- Primary documented in this encounter Additional Health Concerns Infection Onset Date Last Indicated Resolved Time VRE Comment:Urine 10/30/13 Resolved 11/04/2013 11/04/2013 8 10:33 AM TUCKPOINTER CLEANER CAULKER R/O COVID-19 12/25/2019 12/25/2019 12/26/2019 2:46 PM CDT R/O COVID-19 05/09/2020 05/09/2020 05/09/2020 12:1 7 PM TUCKPOINTER CLEANER CAULKER documented as of this encounter Care Teams Natural Gas Field Processing Supervisor Relationship Specialty Start Date End Date Dara Tavera FNP [address] [place] [address] PCP - General NURSE PRACTITIONER 10/13/18 documented as of this encounter
--- OUTSIDE RECORDS SUMMARY | 2025-05-11 21:58 | XMS_ITS | Encounter Summary ---
Author Organization [facility] Address [address] [place] [address] Care Team Providers Care Elementary Educator Name Role Phone Dara Tavera AMANDEEP Primary Care Provider Encounter Details Date Type Department Care Team (Latest Contact Info) Description 12/16/2005 Outpatient Historical [facility] Family Medicine- [address] [place] [place] [address] Ryan Don NP NO ADDRESS ON FILE Abdominal Pain, Unspecified Site (Primary Dx); Other Specified Disease of White Blood Cells; Cellulitis and Abscess of Unspecified Site; Nausea with Vomiting Social History Tobacco Use Types Packs/Day Years Used Date Smoking Tobacco: Never Assessed Comments Unknown Sex and Gender Information Value Date Recorded Sex Assigned at Not on file Legal Sex Female 5:22 AM STEM CUTTER Gender Identity Not on file Sexual [...] Resolved 11/04/2013 11/04/2013 8 10:33 AM STEM CUTTER R/O COVID-19 12/25/2019 12/25/2019 12/26/2019 2:46 PM CDT R/O COVID-19 05/09/2020 05/09/2020 05/09/2020 12:1 7 PM STEM CUTTER documented as of this encounter Care Teams Elementary Educator Relationship Specialty Start Date End Date Dara Tavera FNP [address] [place] [address] PCP - General NURSE PRACTITIONER 10/13/18 documented as of this encounter
--- OUTSIDE RECORDS SUMMARY | 2025-05-11 21:58 | XMS_ITS | Encounter Summary ---
Author Organization [facility] Address [address] [place] [address] Care Team Providers Care Emergency Department Physician Name Role Phone Dara Tavera Primary Care Provider Encounter Details Date Type Department Care Team (Latest Contact Info) Description 02/20/2007 Outpatient Historical [facility] [address] [place] [address] AMBULANCE, [facility] Unspecified Nonpsychotic Mental Disorder (Primary Dx) Social History Tobacco Use Types Packs/Day Years Used Date Smoking Tobacco: Never Assessed Comments Unknown Sex and Gender Information Value Date Recorded Sex Assigned at Not on file Legal Sex Female 5:22 AM SHEETROCK APPLICATOR Gender Identity Not on file Sexual Orientation Not on file documented as of this encounter Plan of Treatment Not on file documented as of this encounter Visit Diagnoses Diagnosis Unspecified nonpsychotic mental disorder- Primary documented in this encounter Additional Health Concerns Infection Onset Date Last Indicated Resolved Time VRE Comment:Urine 10/30/13 Resolved 11/04/2013 11/04/2013 8 10:33 AM SHEETROCK APPLICATOR R/O COVID-19 12/25/2019 12/25/2019 12/26/2019 2:46 PM CDT R/O COVID-19 05/09/2020 05/09/2020 05/09/2020 12:1 7 PM SHEETROCK APPLICATOR documented as of this encounter Care Teams Emergency Department Physician Relationship Specialty Start Date End Date Dara Tavera FNP [address] [place] [address] PCP - General NURSE PRACTITIONER 10/13/18 documented as of this encounter
--- OUTSIDE RECORDS SUMMARY | 2025-05-11 21:58 | XMS_ITS | Encounter Summary ---
Author Organization [facility] Address [address] [place] [address] Care Team Providers Care Innovation Manager Name Role Phone Dara Tavera AMANDEEP Primary Care Provider [phone] Encounter Details Date Type Department Care Team (Late st Contact Info) Description 06/03/2007 Emergency [facility] Emergency Department [address] [place] [address] Ed, Physician NO ADDRESS ON FILE Oniel Sainz MD [address] [place] [address] Social History Tobacco Use Types Packs/Day Years Used Date Smoking Tobacco: Never Assessed Comments Unknown Sex and Gender Information Value Date Recorded Sex Assigned at Not on file Legal Sex Female 5:22 AM UTILIZATION MANAGEMENT RN Gender Identity Not on file Sexual Orientation Not on file documented as of this encounter Plan of Treatment Not on file documented as of this encounter Procedures Procedure Name Priority Date/Time Associated Diagnosis Comments CBC WITH DIFFERENTIAL Routine 06/03/2007 9:39 PM UTILIZATION MANAGEMENT RN COMPREHENSIVE METABOLIC PANEL Routine 06/03/2007 9:39 PM UTILIZATION MANAGEMENT RN URINALYSIS W/REFLEX MICROSCOPIC Routine 06/03/2007 9:26 PM UTILIZATION MANAGEMENT RN documented in this encounter Results * (ABNORMAL) COMPREHENSIVE METABOLIC PANEL (06/03/2007 9:39 PM UTILIZATION MANAGEMENT RN) [facility] GLUCOSE 97 70 - 110 mg/dL [...] 295 mOsm/Kg INTERFACE SYSTEM 06/03/2007 9:39 PM UTILIZATION MANAGEMENT RN us Oniel Sainz MD CHEMISTRY ORDERABLES Edited INTERFACE SYSTEM Refer to clinic/hospital department * (ABNORMAL) CBC WITH DIFFERENTIAL (06/03/2007 9:39 PM UTILIZATION MANAGEMENT RN) Pathologist [facility] WBC 9.5 4.5 - 11.0 K/ul INTERFACE [...] 0.2 K/ul INTERFACE SYSTEM 06/03/2007 9:39 PM UTILIZATION MANAGEMENT RN Oniel Sainz MD HEMATOLOGY ORDERABLES Edited Performing Organization Address City/[facility] de Phone Number INTERFACE SYSTEM Refer to clinic/hospital department * URINALYSIS (06/03/2007 9:26 PM UTILIZATION MANAGEMENT RN) COLOR UA Yellow Straw INTERFACE SYSTEM CLARITY [...] No No INTERFACE SYSTEM 06/03/2007 9:26 PM UTILIZATION MANAGEMENT RN Oniel Sainz MD URINE ORDERABLES Edited Performing Organization Address City/[facility] Co de Phone Number INTERFACE SYSTEM Refer to clinic/hospital department documented in this encounter Visit Diagnoses Not on filedocumented in this encounter Additional Health Concerns Infection Onset Date Last Indicated Resolved Time VRE Comment:Urine 10/30/13 Resolved 11/04/2013 11/04/2013 8 10:33 AM UTILIZATION MANAGEMENT RN R/O COVID-19 12/25/2019 12/25/2019 12/26/2019 2:46 PM CDT R/O COVID-19 05/09/2020 05/09/2020 05/09/2020 12:1 7 PM UTILIZATION MANAGEMENT RN documented as of this encounter Care Teams Innovation Manager Relationship Specialty Start Date End Date Dara Tavera FNP [address] [place] [phone] PCP - General NURSE PRACTITIONER 10/13/18 documented as of this encounter
--- OUTSIDE RECORDS SUMMARY | 2025-05-11 21:58 | XMS_ITS | Encounter Summary ---
Author Organization [facility] Address [address] [place] [address] Care Team Providers Care General Operations Manager Name Role Phone Dara Tavera MANAGER CONTINUOUS IMPROVEMENT Primary Care Provider Encounter Details Date Type Department Care Team (Late st Contact Info) Description 02/13/2007 Outpatient Historical [facility] Alisa Ross MD [address] [place] [address] Social History Tobacco Use Types Packs/Day Years Used Date Smoking Tobacco: Never Assessed Comments Unknown Sex and Gender Information Value Date Recorded Sex Assigned at Not on file Legal Sex Female 5:[address] PRODUCTION GENERAL MANAGER Gender Identity Not on file Sexual [...] Resolved 11/04/2013 11/04/2013 8 10:[address] PRODUCTION GENERAL MANAGER R/O COVID-19 12/25/2019 12/25/2019 12/26/2019 2:46 PM CDT R/O COVID-19 05/09/2020 05/09/2020 05/09/2020 12:[address] PRODUCTION GENERAL MANAGER documented as of this encounter Care Teams General Operations Manager Relationship Specialty Start Date End Date Dara Tavera FNP [address] [place] [phone] PCP - General NURSE PRACTITIONER 10/13/18 documented as of this encounter
--- OUTSIDE RECORDS SUMMARY | 2025-05-11 21:58 | XMS_ITS | Encounter Summary ---
Author Organization [facility] Address [address] [place] [address] Care Team Providers Care Steam Finisher Name Role Phone Dara Tavera Primary Care Provider Encounter Details Date Type Department Care Team (Late st Contact Info) Description 04/03/2007 Outpatient [facility] [address] [place] [address] AMBULANCE, [facility] Other Chest Pain (Primary Dx) Social History Tobacco Use Types Packs/Day Years Used Date Smoking Tobacco: Never Assessed Comments Unknown Sex and Gender Information Value Date Recorded Sex Assigned at Not on file Legal Sex Female 5:22 AM FIELDWORK COORDINATOR Gender Identity Not on file Sexual Orientation Not on file documented as of this encounter Plan of Treatment Not on file documented as of this encounter Visit Diagnoses Diagnosis Other chest pain- Primary documented in this encounter Additional Health Concerns Infection Onset Date Last Indicated Resolved Time VRE Comment:Urine 10/30/13 Resolved 11/04/2013 11/04/2013 8 10:33 AM FIELDWORK COORDINATOR R/O COVID-19 12/25/2019 12/25/2019 12/26/2019 2:46 PM CDT R/O COVID-19 05/09/2020 05/09/2020 05/09/2020 12:1 7 PM FIELDWORK COORDINATOR documented as of this encounter Care Teams Steam Finisher Relationship Specialty Start Date End Date Dara Tavera FNP [address] [place] [phone] PCP - General NURSE PRACTITIONER 10/13/18 documented as of this encounter
--- OUTSIDE RECORDS SUMMARY | 2025-05-11 21:58 | XMS_ITS | Encounter Summary ---
Author Organization [facility] Address [address] [place] [address] Care Team Providers Care Lsat Instructor Name Role Phone Dara Tavera Primary Care Provider Encounter Details Date Type Department Care Team (Latest Contact Info) Description 01/05/2006 Outpatient Historical [facility] [place] [address] [facility] [address] [place] [address] Faiza Petersen MD NO ADDRESS ON FILE Open Wnd Anterior Abdomen (Primary Dx); Abdominal Pain, Unspecified Site Social History Tobacco Use Types Packs/Day Years Used Date Smoking Tobacco: Never Assessed Comments Unknown Sex and Gender Information Value Date Recorded Sex Assigned at Not on file Legal Sex Female 5:22 AM PRODUCT MANAGEMENT SPECIALIST Gender Identity Not on file [...] Resolved 11/04/2013 11/04/2013 8 10:33 AM PRODUCT MANAGEMENT SPECIALIST R/O COVID-19 12/25/2019 12/25/2019 12/26/2019 2:46 PM CDT R/O COVID-19 05/09/2020 05/09/2020 05/09/2020 12:1 7 PM PRODUCT MANAGEMENT SPECIALIST documented as of this encounter Care Teams Lsat Instructor Relationship Specialty Start Date End Date Dara Tavera FNP [address] [place] [address] PCP - General NURSE PRACTITIONER 10/13/18 documented as of this encounter
--- OUTSIDE RECORDS SUMMARY | 2025-05-11 21:58 | XMS_ITS | Encounter Summary ---
Author Organization [facility] Address [address] [place] [address] Care Team Providers Care Table Games Shift Manager Name Role Phone Dara Tavera Primary Care Provider [phone] Encounter Details Date Type Department Care Team (Latest Contact Info) Description 10/09/2005 Outpatient Historical [facility] [address] [place] [address] AMBULANCE, [facility] Unspecified Nonpsychotic Mental Disorder (Primary Dx) Social History Tobacco Use Types Packs/Day Years Used Date Smoking Tobacco: Never Assessed Comments Unknown Sex and Gender Information Value Date Recorded Sex Assigned at Not on file Legal Sex Female 5:22 AM STUDENT SPECIALIST Gender Identity Not on file Sexual Orientation Not on file documented as of this encounter Plan of Treatment Not on file documented as of this encounter Visit Diagnoses Diagnosis Unspecified nonpsychotic mental disorder- Primary documented in this encounter Additional Health Concerns Infection Onset Date Last Indicated Resolved Time VRE Comment:Urine 10/30/13 Resolved 11/04/2013 11/04/2013 8 10:33 AM STUDENT SPECIALIST R/O COVID-19 12/25/2019 12/25/2019 12/26/2019 2:46 PM CDT R/O COVID-19 05/09/2020 05/09/2020 05/09/2020 12:1 7 PM STUDENT SPECIALIST documented as of this encounter Care Teams Table Games Shift Manager Relationship Specialty Start Date End Date Dara Tavera FNP [address] [place] [phone] PCP - General NURSE PRACTITIONER 10/13/18 documented as of this encounter
--- OUTSIDE RECORDS SUMMARY | 2025-05-11 21:58 | XMS_ITS | Encounter Summary ---
Author Organization [facility] Address [address] [place] [address] Care Team Providers Care Technical Staff Assistant Name Role Phone Dara Tavera BACKUP SAWYER Primary Care Provider Encounter Details Date Type Department Care Team (Late st Contact Info) Description 06/14/2007 Outpatient Historical [facility] IN BED Amaury De La Rosa MD NO ADDRESS ON FILE Richie Vargas Jr., MD [address] [place] [address] Social History Tobacco Use Types Packs/Day Years Used Date Smoking Tobacco: Never Assessed Comments Unknown Sex and Gender Information Value Date Recorded Sex Assigned at Not on file Legal Sex Female 5:22 AM DIGITAL FORENSIC EXAMINER Gender Identity Not on file Sexual Orientation Not on file documented as of this encounter Plan of Treatment Not on file documented as of this encounter Procedures Procedure Name Priority Date/Time Associated Diagnosis Comments URINALYSIS W/REFLEX MICROSCOPIC Routine 06/15/2007 12:13 PM DIGITAL FORENSIC EXAMINER POC GLUCOSE Routine 06/15/2007 11:42 AM DIGITAL FORENSIC EXAMINER POC GLUCOSE Routine 06/15/2007 5:10 AM DIGITAL FORENSIC EXAMINER CARDIAC ENZYMES Routine 06/15/2007 4:21 AM DIGITAL FORENSIC EXAMINER CBC WITH DIFFERENTIAL Routine 06/15/2007 4:21 AM DIGITAL FORENSIC EXAMINER TSH Routine 06/15/2007 4:21 AM DIGITAL FORENSIC EXAMINER T4 FREE Routine 06/15/2007 4:21 AM DIGITAL FORENSIC EXAMINER LIPID PANEL Routine 06/15/2007 4:21 AM DIGITAL FORENSIC EXAMINER COMPREHENSIVE METABOLIC PANEL Routine 06/15/2007 4:21 AM DIGITAL FORENSIC EXAMINER POC GLUCOSE Routine 06/15/2007 2:02 AM DIGITAL FORENSIC EXAMINER CARDIAC ENZYMES Routine 06/14/2007 10:20 PM DIGITAL FORENSIC EXAMINER CARDIAC ENZYMES Routine 06/14/2007 4:07 PM DIGITAL FORENSIC EXAMINER CBC WITH DIFFERENTIAL Routine 06/14/2007 4:07 PM DIGITAL FORENSIC EXAMINER PTT Routine 06/14/2007 4:07 PM DIGITAL FORENSIC EXAMINER PROTIME-INR Routine 06/14/2007 4:07 PM DIGITAL FORENSIC EXAMINER BASIC METABOLIC PANEL Routine 06/14/2007 4:07 PM DIGITAL FORENSIC EXAMINER documented in this encounter Results * URINALYSIS (06/15/2007 12:13 PM DIGITAL FORENSIC EXAMINER) COLOR UA Yellow Straw INTERFACE SYSTEM CLARITY [...] No INTERFACE SYSTEM 06/15/2007 12:1 3 PM DIGITAL FORENSIC EXAMINER us Richie Vargas Jr., MD URINE ORDERABLES Edite d INTERFACE SYSTEM Refer to clinic/hospital department * (ABNORMAL) POC GLUCOSE (06/15/2007 11:42 AM DIGITAL FORENSIC EXAMINER) GLUCOSE POC 114(H) 60 - 100 mg/dL INTERFACE SYSTEM 06/15/2007 11:4 2 AM DIGITAL FORENSIC EXAMINER Result Tracey Vargas Jr., MD POINT OF CARE TESTING Edited Performing Organization Address [facility] Phone Number INTERFACE SYSTEM Refer to clinic/hospital department * (ABNORMAL) POC GLUCOSE (06/15/2007 5:10 AM DIGITAL FORENSIC EXAMINER) GLUCOSE POC 116(H) 60 - 100 mg/dL INTERFACE SYSTEM 06/15/2007 5:10 AM DIGITAL FORENSIC EXAMINER Result Tracey Vargas Jr., MD POINT OF CARE TESTING Edited Performing Organization Address [facility] Phone Number INTERFACE SYSTEM Refer to clinic/hospital department * TSH (06/15/2007 4:21 AM DIGITAL FORENSIC EXAMINER) TSH 1.340 0.350 - 5.500 uIU/ml INTERFACE SYSTEM 06/15/2007 4:21 AM DIGITAL FORENSIC EXAMINER Result Tracey Vargas Jr., MD CHEMISTRY ORDERABLES E dited Performing Organization Address [facility] Phone Number INTERFACE SYSTEM Refer to clinic/hospital department * (ABNORMAL) T4 FREE (06/15/2007 4:21 AM DIGITAL FORENSIC EXAMINER) T4 FREE 0.64(L) 0.89 - 1.76 ng/dL INTERFACE SYSTEM 06/15/2007 4:21 AM DIGITAL FORENSIC EXAMINER Result Tracey Vargas Jr., MD CHEMISTRY ORDERABLES E dited Performing Organization Address City/[facility] Phone Number INTERFACE SYSTEM Refer to clinic/hospital department * (ABNORMAL) LIPID PANEL (06/15/2007 4:21 AM DIGITAL FORENSIC EXAMINER) CHOLESTEROL 208(H) 75 - 200 mg/dL INTERFACE SYSTEM HDL 41 40 - 60 mg/dL INTERFACE SYSTEM TRIGLYCERIDE 206(H) 0 - 168 mg/dL INTERFACE SYSTEM CALCULATED LDL CHOLESTEROL 126 0 - 130 mg/dL INTERFACE SYSTEM CALCULATED TOTAL CHOLESTEROL TO HDL RATIO 5.07(H) 3.27 - 4.44 INTERFACE SYSTEM 06/15/2007 4:21 AM DIGITAL FORENSIC EXAMINER Richie Vargas Jr., MD CHEMISTRY ORDERABLES E dited Performing Organization Address [facility] Phone Number INTERFACE SYSTEM Refer to clinic/hospital department * (ABNORMAL) COMPREHENSIVE METABOLIC PANEL (06/15/2007 4:21 AM DIGITAL FORENSIC EXAMINER) GLUCOSE 94 70 - 110 mg/dL INTERFACE [...] 295 mOsm/Kg INTERFACE SYSTEM 06/15/2007 4:21 AM DIGITAL FORENSIC EXAMINER Richie Vargas Jr., MD CHEMISTRY ORDERABLES E dited Performing Organization Address [facility] Phone Number INTERFACE SYSTEM Refer to clinic/hospital department * (ABNORMAL) CBC WITH DIFFERENTIAL (06/15/2007 4:21 AM DIGITAL FORENSIC EXAMINER) WBC 13.1(H) 4.5 - 11.0 K/ul INTERFACE [...] 0.2 K/ul INTERFACE SYSTEM 06/15/2007 4:21 AM DIGITAL FORENSIC EXAMINER Richie Vargas Jr., MD HEMATOLOGY ORDERABLES Edited Performing Organization Address [facility] de Phone Number INTERFACE SYSTEM Refer to clinic/hospital department * CARDIAC ENZYMES (06/15/2007 4:21 AM DIGITAL FORENSIC EXAMINER) TROPONIN I <0.1 0.0 - 1.3 ng/mL INTERFACE SYSTEM CKMB 1.0 0.0 - 5.0 ng/mL INTERFACE SYSTEM 06/15/2007 4:21 AM DIGITAL FORENSIC EXAMINER Amaury De La Rosa MD CHEMISTRY ORDERABLES Edited Performing Organization Address City/[facility]/ZIP Co de Phone Number INTERFACE SYSTEM Refer to clinic/hospital department * (ABNORMAL) POC GLUCOSE (06/15/2007 2:02 AM DIGITAL FORENSIC EXAMINER) GLUCOSE POC 115(H) 60 - 100 mg/dL INTERFACE SYSTEM 06/15/2007 2:02 AM DIGITAL FORENSIC EXAMINER us Richie Vargas Jr., MD POINT OF CARE TESTING Edited Performing Organization Address [facility] Phone Number INTERFACE SYSTEM Refer to clinic/hospital department * CARDIAC ENZYMES (06/14/2007 10:20 PM DIGITAL FORENSIC EXAMINER) Pathologist [facility] TROPONIN I <0.1 0.0 - 1.3 ng/mL INTERFACE SYSTEM CKMB 0.3 0.0 - 5.0 ng/mL INTERFACE SYSTEM 06/14/2007 10:2 0 PM DIGITAL FORENSIC EXAMINER Amaury De La Rosa MD CHEMISTRY ORDERABLES Edited Performing Organization Address [facility] Phone Number INTERFACE SYSTEM Refer to clinic/hospital department * (ABNORMAL) CBC WITH DIFFERENTIAL (06/14/2007 4:07 PM DIGITAL FORENSIC EXAMINER) Pathologist [facility] WBC 14.3(H) 4.5 - 11.0 K/ul INTERFACE [...] 0.2 K/ul INTERFACE SYSTEM 06/14/2007 4:07 PM DIGITAL FORENSIC EXAMINER Amaury De La Rosa MD HEMATOLOGY ORDERABLES Edited Performing Organization Address City/[facility] Phone Number INTERFACE SYSTEM Refer to clinic/hospital department * PTT (06/14/2007 4:07 PM DIGITAL FORENSIC EXAMINER) PTT 34.4 21.6 - 35.6 Secs INTERFACE SYSTEM 06/14/2007 4:07 PM DIGITAL FORENSIC EXAMINER Amaury De La Rosa MD HEMATOLOGY ORDERABLES Edited Performing Organization Address [facility] Phone Number INTERFACE SYSTEM Refer to clinic/hospital department * PROTIME-INR (06/14/2007 4:07 PM DIGITAL FORENSIC EXAMINER) PROTIME 14.0 13.0 - 15.7 Secs INTERFACE SYSTEM INR 1.0 INTERFACE SYSTEM 06/14/2007 4:07 PM DIGITAL FORENSIC EXAMINER Amaury De La Rosa MD HEMATOLOGY ORDERABLES Edited Performing Organization Address [facility] Phone Number INTERFACE SYSTEM Refer to clinic/hospital department * (ABNORMAL) BASIC METABOLIC PANEL (06/14/2007 4:07 PM DIGITAL FORENSIC EXAMINER) GLUCOSE 90 70 - 110 mg/dL INTERFACE [...] 295 mOsm/Kg INTERFACE SYSTEM 06/14/2007 4:07 PM DIGITAL FORENSIC EXAMINER Amaury De La Rosa MD CHEMISTRY ORDERABLES Edited Performing Organization Address City/[facility] de Phone Number INTERFACE SYSTEM Refer to clinic/hospital department * CARDIAC ENZYMES (06/14/2007 4:07 PM DIGITAL FORENSIC EXAMINER) TROPONIN I <0.1 0.0 - 1.3 ng/mL INTERFACE SYSTEM CKMB 1.3 0.0 - 5.0 ng/mL INTERFACE SYSTEM 06/14/2007 4:07 PM DIGITAL FORENSIC EXAMINER Amaury De La Rosa MD CHEMISTRY ORDERABLES Edited Performing Organization Address [facility] Phone Number INTERFACE SYSTEM Refer to clinic/hospital department documented in this encounter Visit Diagnoses Not on filedocumented in this encounter Additional Health Concerns Infection Onset Date Last Indicated Resolved Time VRE Comment:Urine 10/30/13 Resolved 11/04/2013 11/04/2013 8 10:33 AM DIGITAL FORENSIC EXAMINER R/O COVID-19 12/25/2019 12/25/2019 12/26/2019 2:46 PM CDT R/O COVID-19 05/09/2020 05/09/2020 05/09/2020 12:1 7 PM DIGITAL FORENSIC EXAMINER documented as of this encounter Care Teams Technical Staff Assistant Relationship Specialty Start Date End Date Dara Tavera FNP [address] [place] [address] PCP - General NURSE PRACTITIONER 10/13/18 documented as of this encounter
[2025-05-11 21:59] LABS: Hematocrit 39.2 % (36-47); Hemoglobin 13.10 g/dL (11.27-16.99); Mean Corpuscular HGB Conc 33.4 g/dL (30-55); Mean Corpuscular Hemoglobin 32.8 pg (27-33); Mean Corpuscular Volume 98.2 fl (85-98); Nucleated Red Blood Cells % 0 %; Platelet Count 235 10^3/cmm (157-399); Red Blood Count 3.99 10^6/uL (3.85-5.65); White Blood Count 10.90 10^3/uL (3.29-11.43)
--- OUTSIDE RECORDS SUMMARY | 2025-05-11 21:59 | XMS_ITS | Encounter Summary ---
Author Organization [facility] Address [address] [place] [address] Care Team Providers Care Bunk House Worker Name Role Phone Dara Tavera Primary Care Provider Encounter Details Date Type Department Care Team (Latest Contact Info) Description 12/18/2006 Outpatient Historical [facility] [address] [place] [address] AMBULANCE, [facility] Other Chest Pain (Primary Dx) Social History Tobacco Use Types Packs/Day Years Used Date Smoking Tobacco: Never Assessed Comments Unknown Sex and Gender Information Value Date Recorded Sex Assigned at Not on file Legal Sex Female 5:22 AM BEATER BOSS Gender Identity Not on file Sexual Orientation Not on file documented as of this encounter Plan of Treatment Not on file documented as of this encounter Visit Diagnoses Diagnosis Other chest pain- Primary documented in this encounter Additional Health Concerns Infection Onset Date Last Indicated Resolved Time VRE Comment:Urine 10/30/13 Resolved 11/04/2013 11/04/2013 8 10:33 AM BEATER BOSS R/O COVID-19 12/25/2019 12/25/2019 12/26/2019 2:46 PM CDT R/O COVID-19 05/09/2020 05/09/2020 05/09/2020 12:1 7 PM BEATER BOSS documented as of this encounter Care Teams Bunk House Worker Relationship Specialty Start Date End Date Dara Tavera FNP [address] [place] [address] PCP - General NURSE PRACTITIONER 10/13/18 documented as of this encounter
--- OUTSIDE RECORDS SUMMARY | 2025-05-11 21:59 | XMS_ITS | Encounter Summary ---
Author Organization [facility] Address [address] [place] [address] Care Team Providers Care Lead Software Developer Name Role Phone Dara Tavera Primary Care Provider Encounter Details Date Type Department Care Team (Late st Contact Info) Description 11/05/2006 Outpatient Historical [facility] [address] [place] [address] AMBULANCE, [facility] Social History Tobacco Use Types Packs/Day Years Used Date Smoking Tobacco: Never Assessed Comments Unknown Sex and Gender Information Value Date Recorded Sex Assigned at Not on file Legal Sex Female 5:22 AM BUREAU DIRECTOR Gender Identity Not on file Sexual Orientation Not on file documented as of this encounter Plan of Treatment Not on file documented as of this encounter Visit Diagnoses Not on filedocumented in this encounter Additional Health Concerns Infection Onset Date Last Indicated Resolved Time VRE Comment:Urine 10/30/13 Resolved 11/04/2013 11/04/2013 8 10:33 AM BUREAU DIRECTOR R/O COVID-19 12/25/2019 12/25/2019 12/26/2019 2:46 PM CDT R/O COVID-19 05/09/2020 05/09/2020 05/09/2020 12:1 7 PM BUREAU DIRECTOR documented as of this encounter Care Teams Lead Software Developer Relationship Specialty Start Date End Date Dara Tavera FNP [address] [place] [phone] PCP - General NURSE PRACTITIONER 10/13/18 documented as of this encounter
--- OUTSIDE RECORDS SUMMARY | 2025-05-11 21:59 | XMS_ITS | Encounter Summary ---
Author Organization [facility] Address [address] [place] [address] Care Team Providers Care Burlap Man Name Role Phone Dara Tavera Primary Care Provider [phone] Encounter Details Date Type Department Care Team (Latest Contact Info) Description 11/12/2006 Outpatient Historical [facility] [address] [place] [address] AMBULANCE, [facility] Pain in Joint, Shoulder Region (Primary Dx) Social History Tobacco Use Types Packs/Day Years Used Date Smoking Tobacco: Never Assessed Comments Unknown Sex and Gender Information Value Date Recorded Sex Assigned at Not on file Legal Sex Female 5:22 AM WELLNESS HEALTH COACH Gender Identity Not on file Sexual Orientation Not on file documented as of this encounter Plan of Treatment Not on file documented as of this encounter Visit Diagnoses Diagnosis Pain in joint, shoulder region- Primary documented in this encounter Additional Health Concerns Infection Onset Date Last Indicated Resolved Time VRE Comment:Urine 10/30/13 Resolved 11/04/2013 11/04/2013 8 10:33 AM WELLNESS HEALTH COACH R/O COVID-19 12/25/2019 12/25/2019 12/26/2019 2:46 PM CDT R/O COVID-19 05/09/2020 05/09/2020 05/09/2020 12:1 7 PM WELLNESS HEALTH COACH documented as of this encounter Care Teams Burlap Man Relationship Specialty Start Date End Date Dara Tavera FNP [address] [place] [phone] PCP - General NURSE PRACTITIONER 10/13/18 documented as of this encounter
--- OUTSIDE RECORDS SUMMARY | 2025-05-11 21:59 | XMS_ITS | Encounter Summary ---
Author Organization [facility] Address [address] [place] [address] Care Team Providers Care Director Machine Name Role Phone Dara Tavera SUBMARINE DIVER Primary Care Provider [phone] Reason for Referral * Outpatient Services (Routine) - Closed Specialty Diagnoses / Procedures Referred By Contac t Referred To Contact Radiology Diagnoses Chest pain, unspecified chest pain type SOB (shortness of breath) on exertion Procedures ECHO STRESS W CONTRAST EXER W DOPP AND COLOR FL ECHO STRESS TEST EXERCISE W DOPP AND COLOR FLOW Jorge Taylor MD [facility] [place] [address] [place] [address] Phone: tel: fax: Referral ID Status Reason Start Date Expiration Date V isits Requested Visits Authorized [id number] Closed [facility] TO SCHEDULE (SGF) 10/05/2015 11/04/2016 1 1 Encounter Details Date Type Department Care Team (Latest Contact Info) Description 10/05/2015 Ancillary Orders [facility] Pulmonology [facility] [address] [place] [address] Jorge Taylor MD NO ADDRESS [...] on file Legal Sex Female 5:22 AM GIS SPECIALIST Gender Identity Not on file Sexual [...] INTERFACE SYSTEM - 10/05/2015 12:22 PM CDT [facility]-[address] [place] [address] Stress Echocardiography Rafy protocol Patient: Choco Study ECHO STRESS Latesha Solis ID: TEST Gender: Jaye : 1965 Age: 49 Room: Study 10/05/2015 Pt Outpatient Date: Status: Study 11:16 AM [facility] #: [id number] Time: Ordering:Jorge Taylor Interpreting:Stephen Alberts MD Title I Coordinator: Rosario Cam [facility] Indications and History: Chest Pain, unspecified. Risk [...] peak heart rate and blood pressure was 54321ys Hg/min. Functional capacity was decreased (greater than [...] peak heart rate and blood pressure was 99975aq Hg/min. Functional capacity was decreased (greater than [...] (*) waterman values outside specified normal range. [facility] are accredited with the Intersocietal Accreditation Commission - Echocardiography. Prepared and Electronically Authenticated Stephen Alberts MD Confirmed 10/05/2015 12:22 Procedure Note Stephen Alberts MD - 10/05/2015 [facility]-[place] [address] [place] [address] [place] [address] Stress Echocardiography Rafy protocol Patient: Choco Study ECHO STRESS Latesha Solis ID: TEST Gender: F : 1965 Age: 49 Room: Study 10/05/2015 Pt Outpatient Date: Status: Study 11:16 AM CSN #: [id number] Time: Ordering:Jorge Taylor Interpreting:Stephen Alberts MD Title I Coordinator: Rosario Cam [facility] Indications and History: Chest Pain, unspecified. Risk [...] peak heart rate and blood pressure was 06855ns Hg/min. Functional capacity was decreased (greater than [...] peak heart rate and blood pressure was 70741so Hg/min. Functional capacity was decreased (greater than [...] (*) waterman values outside specified normal range. [facility] are accredited with the Intersocietal [...] 10/30/13 Resolved 11/04/2013 11/04/2013 8 10:33 AM GIS SPECIALIST R/O COVID-19 12/25/2019 12/25/2019 12/26/2019 2:46 PM CDT R/O COVID-19 05/09/2020 05/09/2020 05/09/2020 12:1 7 PM GIS SPECIALIST documented as of this encounter Care Teams Director Machine Relationship Specialty Start Date End Date Dara Tavera FNP [address] [place] [address] PCP - General NURSE PRACTITIONER 10/13/18 documented as of this encounter
--- OUTSIDE RECORDS SUMMARY | 2025-05-11 21:59 | XMS_ITS | Encounter Summary ---
Author Organization [facility] Address [address] [place] [address] Care Team Providers Care Ice Cream Machine Operator Name Role Phone Dara Tavera AMANDEEP Primary Care Provider Encounter Details Date Type Department Care Team (Late st Contact Info) Description 01/15/2007 Emergency [facility] Emergency Department [address] [place] [address] Raji Reyes MD NO ADDRESS ON FILE Unspecified, Hemorrhage of Gastrointestinal Tract (Primary Dx) Social History Tobacco Use Types Packs/Day Years Used Date Smoking Tobacco: Never Assessed Comments Unknown Sex and Gender Information Value Date Recorded Sex Assigned at Not on file Legal Sex Female 5:22 AM LEAD JAVASCRIPT ENGINEER Gender Identity Not on file Sexual [...] during normal , as reported by the clay grinder, are summarized as follows: Gestational Age Expected hCG Values (mIU/ml) 0.2-1 Weeks 5 - 50 1-2 Weeks 50 - 500 2-3 Weeks 100 - 5,000 3-4 Weeks 1,000 - 50,000 5-6 Weeks 10,000 - 100,000 6-8 Weeks 15,000 - 200,000 2-3 Months 10,000 - 100,000 01/15/2007 9:00 AM CDT Raji Reyes MD CHEMISTRY ORDERABLES Edited Performing Organization Address [facility] Phone Number INTERFACE SYSTEM Refer to clinic/hospital department * LIPASE (01/15/2007 9:00 AM CDT) [facility] LIPASE 27 6 - 51 U/L INTERFACE SYSTEM Comment: As of 05 the [facility] has changed testing methods. The new reference range is 6-51 The old referance range was 23-300 01/15/2007 9:00 AM CDT Raji Reyes MD CHEMISTRY ORDERABLES Edited Performing Organization Address [facility] de Phone Number INTERFACE SYSTEM Refer to clinic/hospital department * (ABNORMAL) COMPREHENSIVE METABOLIC PANEL (01/15/2007 9:00 AM CDT) [facility] GLOBULIN (CALC) 2.8 2.4 - 3.9 [...] Resolved 11/04/2013 11/04/2013 8 10:33 AM LEAD JAVASCRIPT ENGINEER R/O COVID-19 12/25/2019 12/25/2019 12/26/2019 2:46 PM CDT R/O COVID-19 05/09/2020 05/09/2020 05/09/2020 12:1 7 PM LEAD JAVASCRIPT ENGINEER documented as of this encounter Care Teams Ice Cream Machine Operator Relationship Specialty Start Date End Date Dara Tavera FNP [address] [place] [phone] PCP - General NURSE PRACTITIONER 10/13/18 documented as of this encounter
--- OUTSIDE RECORDS SUMMARY | 2025-05-11 21:59 | XMS_ITS | Encounter Summary ---
Author Organization [facility] Address [address] [place] [address] Care Team Providers Care Director Personal Name Role Phone Dara Tavera AMANDEEP Primary Care Provider Encounter Details Date Type Department Care Team (Late st Contact Info) Description 01/14/2007 Emergency [facility] Emergency Department [address] [place] [address] Benedicto Rojo MD NO ADDRESS ON FILE Abdominal Pain, Other Specified Site (Primary Dx) Social History Tobacco Use Types Packs/Day Years Used Date Smoking Tobacco: Never Assessed Comments Unknown Sex and Gender Information Value Date Recorded Sex Assigned at Not on file Legal Sex Female 5:22 AM FUR MIXER OPERATOR Gender Identity Not on file Sexual [...] CHEMISTRY ORDERABLES Edited Performing Organization Address [facility] de Phone Number INTERFACE SYSTEM Refer [...] HEMATOLOGY ORDERABLES Edited Performing Organization Address [facility] Co de Phone Number INTERFACE SYSTEM Refer to clinic/hospital department documented in this encounter Visit Diagnoses Diagnosis Abdominal pain, other specified site- Primary documented in this encounter Additional Health Concerns Infection Onset Date Last Indicated Resolved Time VRE Comment:Urine 10/30/13 Resolved 11/04/2013 11/04/2013 8 10:33 AM FUR MIXER OPERATOR R/O COVID-19 12/25/2019 12/25/2019 12/26/2019 2:46 PM CDT R/O COVID-05/09/2020 05/09/2020 05/09/2020 12:1 7 PM FUR MIXER OPERATOR documented as of this encounter Care Teams Director Personal Relationship Specialty Start Date End Date Dara Tavera FNP [address] [place] [phone] PCP - General NURSE PRACTITIONER 10/13/18 documented as of this encounter
--- OUTSIDE RECORDS SUMMARY | 2025-05-11 21:59 | XMS_ITS | Encounter Summary ---
Author Organization [facility] Address [address] [place] [address] Care Team Providers Care Learning Support Assistant Name Role Phone Dara Tavera Primary Care Provider [phone] Encounter Details Date Type Department Care Team (Latest Contact Info) Description 03/06/2006 Outpatient Historical [facility] Ambulance [address] [place] [address] AMBULANCE, [facility] Other Convulsions (CMS/HCC) (Primary Dx) Social History Tobacco Use Types Packs/Day Years Used Date Smoking Tobacco: Never Assessed Comments Unknown Sex and Gender Information Value Date Recorded Sex Assigned at Not on file Legal Sex Female 5:22 AM SUPPORT SERVICES TECH Gender Identity Not on file Sexual Orientation Not on file documented as of this encounter Plan of Treatment Not on file documented as of this encounter Visit Diagnoses Diagnosis Other convulsions- Primary documented in this encounter Additional Health Concerns Infection Onset Date Last Indicated Resolved Time VRE Comment:Urine 10/30/13 Resolved 11/04/2013 11/04/2013 8 10:33 AM SUPPORT SERVICES TECH R/O COVID-19 12/25/2019 12/25/2019 12/26/2019 2:46 PM CDT R/O COVID-19 05/09/2020 05/09/2020 05/09/2020 12:1 7 PM SUPPORT SERVICES TECH documented as of this encounter Care Teams Learning Support Assistant Relationship Specialty Start Date End Date Dara Tavera FNP [address] [place] [phone] PCP - General NURSE PRACTITIONER 10/13/18 documented as of this encounter
--- OUTSIDE RECORDS SUMMARY | 2025-05-11 21:59 | XMS_ITS | Encounter Summary ---
Author Organization [facility] Address [address] [place] [address] Care Team Providers Care Sand Screener Name Role Phone Dara Tavera Primary Care Provider Encounter Details Date Type Department Care Team (Latest Contact Info) Description 03/15/2006 Outpatient Historical [facility] Ambulance [address] [place] [address] AMBULANCE, [facility] Other Injury of Abdomen (Primary Dx) Social History Tobacco Use Types Packs/Day Years Used Date Smoking Tobacco: Never Assessed Comments Unknown Sex and Gender Information Value Date Recorded Sex Assigned at Not on file Legal Sex Female 5:22 AM QUALITY CONTROL PROJECTIONIST Gender Identity Not on file Sexual Orientation Not on file documented as of this encounter Plan of Treatment Not on file documented as of this encounter Visit Diagnoses Diagnosis Other injury of abdomen- Primary documented in this encounter Additional Health Concerns Infection Onset Date Last Indicated Resolved Time VRE Comment:Urine 10/30/13 Resolved 11/04/2013 11/04/2013 8 10:33 AM QUALITY CONTROL PROJECTIONIST R/O COVID-19 12/25/2019 12/25/2019 12/26/2019 2:46 PM CDT R/O COVID-19 05/09/2020 05/09/2020 05/09/2020 12:1 7 PM QUALITY CONTROL PROJECTIONIST documented as of this encounter Care Teams Sand Screener Relationship Specialty Start Date End Date Dara Tavera FNP [address] [place] [address] PCP - General NURSE PRACTITIONER 4/27/19 documented as of this encounter
--- OUTSIDE RECORDS SUMMARY | 2025-05-11 21:59 | XMS_ITS | Encounter Summary ---
Author Organization [employer] [facility] Address [address] [place] [address] Care Team Providers Care Sales Agent Food Vending Service Name Role Phone Dara Tavera Primary Care Provider Encounter Details Date Type Department Care Team (Late st Contact Info) Description 09/07/2020 Ancillary Orders [employer] [facility] [address] [place] [address] Dara Tavera FNP [address] [place] [address] Pain in left foot Social [...] How often do you attend pentecostal or muslim serv ices? Not asked 05/05/2019 Do you [...] on file Legal Sex Female 5:22 AM HEDIS ABSTRACTOR Gender Identity Not on file Sexual Orientation [...] union. 3. Osteoarthritis of the tarsometatarsal joints. [id number] Narrative Procedure Note Akira Liu MD - [...] union. 3. Osteoarthritis of the tarsometatarsal joints. [id number] Dara [facility] ORDER[facility]L ES Final Result documented in this encounter Visit Diagnoses Diagnosis Pain in left foot Pain in limb Pain in left foot Pain in limb documented in this encounter Care Teams Sales Agent Food Vending Service Relationship Specialty Start Date End Date Dara Tavera FNP [address] [place] [phone] PCP - General NURSE PRACTITIONER 10/13/18 documented as of this encounter
--- OUTSIDE RECORDS SUMMARY | 2025-05-11 21:59 | XMS_ITS | Encounter Summary ---
Author Organization [facility] Address [address] [place] [address] Care Team Providers Care Machine Milker Name Role Phone Dara Tavera Primary Care Provider Encounter Details Date Type Department Care Team (Latest Contact Info) Description 03/05/2006 Outpatient Historical [facility] Ambulance [address] [place] [address] AMBULANCE, [facility] Other Malaise and Fatigue (Primary Dx) Social History Tobacco Use Types Packs/Day Years Used Date Smoking Tobacco: Never Assessed Comments Unknown Sex and Gender Information Value Date Recorded Sex Assigned at Not on file Legal Sex Female 5:22 AM PRODUCE PRODUCTION TEAM MEMBER Gender Identity Not on file Sexual Orientation Not on file documented as of this encounter Plan of Treatment Not on file documented as of this encounter Visit Diagnoses Diagnosis Other malaise and fatigue- Primary documented in this encounter Additional Health Concerns Infection Onset Date Last Indicated Resolved Time VRE Comment:Urine 10/30/13 Resolved 11/04/2013 11/04/2013 8 10:33 AM PRODUCE PRODUCTION TEAM MEMBER R/O COVID-19 12/25/2019 12/25/2019 12/26/2019 2:46 PM CDT R/O COVID-19 05/09/2020 05/09/2020 05/09/2020 12:1 7 PM PRODUCE PRODUCTION TEAM MEMBER documented as of this encounter Care Teams Machine Milker Relationship Specialty Start Date End Date Dara Tavera FNP [address] [place] [phone] PCP - General NURSE PRACTITIONER 10/13/18 documented as of this encounter
--- OUTSIDE RECORDS SUMMARY | 2025-05-11 21:59 | XMS_ITS | Encounter Summary ---
Author Organization [facility] Address [address] [place] [address] Care Team Providers Care Automotive Glass Installer Name Role Phone Dara Tavera Primary Care Provider Encounter Details Date Type Department Care Team (Latest Contact Info) Description 12/24/2005 Outpatient Historical [facility] Ambulance [address] [place] [address] AMBULANCE, [facility] Open Wnd Anterior Abdomen (Primary Dx) Social History Tobacco Use Types Packs/Day Years Used Date Smoking Tobacco: Never Assessed Comments Unknown Sex and Gender Information Value Date Recorded Sex Assigned at Not on file Legal Sex Female 5:22 AM GUM SCORING MACHINE OPERATOR Gender Identity Not on file [...] 10/30/13 Resolved 11/04/2013 11/04/2013 8 10:33 AM GUM SCORING MACHINE OPERATOR R/O COVID-19 12/25/2019 12/25/2019 12/26/2019 2:46 PM CDT R/O COVID-19 05/09/2020 05/09/2020 05/09/2020 12:1 7 PM GUM SCORING MACHINE OPERATOR documented as of this encounter Care Teams Automotive Glass Installer Relationship Specialty Start Date End Date Dara Tavera FNP [address] [place] [phone] PCP - General NURSE PRACTITIONER 10/13/18 documented as of this encounter
--- OUTSIDE RECORDS SUMMARY | 2025-05-11 21:59 | XMS_ITS | Encounter Summary ---
Author Organization [facility] Address [address] [place] [address] Care Team Providers Care Airfield Services Officer Name Role Phone Dara Tavera Primary Care Provider Encounter Details Date Type Department Care Team (Latest Contact Info) Description 02/04/[address] [facility] [address] [place] [address] AMBULANCE, [facility] Cervicalgia (Primary Dx) Social History Tobacco Use Types Packs/Day Years Used Date Smoking Tobacco: Never Assessed Comments Unknown Sex and Gender Information Value Date Recorded Sex Assigned at Not on file Legal Sex Female 5:22 AM METAL FLOORING INSTALLER Gender Identity Not on file Sexual Orientation Not on file documented as of this encounter Plan of Treatment Not on file documented as of this encounter Visit Diagnoses Diagnosis Cervicalgia- Primary documented in this encounter Additional Health Concerns Infection Onset Date Last Indicated Resolved Time VRE Comment:Urine 10/30/13 Resolved 11/04/2013 11/04/2013 8 10:33 AM METAL FLOORING INSTALLER R/O COVID-19 12/25/2019 12/25/2019 12/26/2019 2:46 PM CDT R/O COVID-19 05/09/2020 05/09/2020 05/09/2020 12:1 7 PM METAL FLOORING INSTALLER documented as of this encounter Care Teams Airfield Services Officer Relationship Specialty Start Date End Date Dara Tavera FNP [address] [place] [address] PCP - General NURSE PRACTITIONER 10/13/18 documented as of this encounter
--- OUTSIDE RECORDS SUMMARY | 2025-05-11 21:59 | XMS_ITS | Encounter Summary ---
Author Organization [facility] Address [address] [place] [address] Care Team Providers Care Jockey Valet Name Role Phone Dara Tavera Primary Care Provider Encounter Details Date Type Department Care Team (Latest Contact Info) Description 11/20/2006 Outpatient Historical [facility] Ambulance [address] [place] [address] AMBULANCE, [facility] Pain in Joint, Shoulder Region (Primary Dx) Social History Tobacco Use Types Packs/Day Years Used Date Smoking Tobacco: Never Assessed Comments Unknown Sex and Gender Information Value Date Recorded Sex Assigned at Not on file Legal Sex Female 5:22 AM LAMINATING PRESS OPERATOR Gender Identity Not on file Sexual Orientation Not on file documented as of this encounter Plan of Treatment Not on file documented as of this encounter Visit Diagnoses Diagnosis Pain in joint, shoulder region- Primary documented in this encounter Additional Health Concerns Infection Onset Date Last Indicated Resolved Time VRE Comment:Urine 10/30/13 Resolved 11/04/2013 11/04/2013 8 10:33 AM LAMINATING PRESS OPERATOR R/O COVID-19 12/25/2019 12/25/2019 12/26/2019 2:46 PM CDT R/O COVID-19 05/09/2020 05/09/2020 05/09/2020 12:1 7 PM LAMINATING PRESS OPERATOR documented as of this encounter Care Teams Jockey Valet Relationship Specialty Start Date End Date Dara Tavera FNP [address] [place] [phone] PCP - General NURSE PRACTITIONER 10/13/18 documented as of this encounter
--- OUTSIDE RECORDS SUMMARY | 2025-05-11 21:59 | XMS_ITS | Encounter Summary ---
Author Organization [facility] Address [address] [place] [address] Care Team Providers Care Veneer Sawyer Name Role Phone Dara Tavera Primary Care Provider Encounter Details Date Type Department Care Team (Latest Contact Info) Description 02/22/2006 Outpatient Historical [facility] [address] [place] [address] AMBULANCE, [facility] Cervicalgia (Primary Dx) Social History Tobacco Use Types Packs/Day Years Used Date Smoking Tobacco: Never Assessed Comments Unknown Sex and Gender Information Value Date Recorded Sex Assigned at Not on file Legal Sex Female 5:22 AM ACCOUNTING RECRUITER Gender Identity Not on file Sexual Orientation Not on file documented as of this encounter Plan of Treatment Not on file documented as of this encounter Visit Diagnoses Diagnosis Cervicalgia- Primary documented in this encounter Additional Health Concerns Infection Onset Date Last Indicated Resolved Time VRE Comment:Urine 10/30/13 Resolved 11/04/2013 11/04/2013 8 10:33 AM ACCOUNTING RECRUITER R/O COVID-19 12/25/2019 12/25/2019 12/26/2019 2:46 PM CDT R/O COVID-19 05/09/2020 05/09/2020 05/09/2020 12:1 7 PM ACCOUNTING RECRUITER documented as of this encounter Care Teams Veneer Sawyer Relationship Specialty Start Date End Date Dara Tavera FNP [address] [place] [address] PCP - General NURSE PRACTITIONER 10/13/18 documented as of this encounter
--- OUTSIDE RECORDS SUMMARY | 2025-05-11 21:59 | XMS_ITS | Encounter Summary ---
Author Organization [facility] Address [address] [place] [address] Care Team Providers Care Bull Gang Supervisor Name Role Phone Dara Tavera Primary Care Provider Encounter Details Date Type Department Care Team (Latest Contact Info) Description 04/15/2006 Outpatient Historical [facility] Ambulance [address] [place] [address] AMBULANCE, [facility] Unspecified Nonpsychotic Mental Disorder (Primary Dx) Social History Tobacco Use Types Packs/Day Years Used Date Smoking Tobacco: Never Assessed Comments Unknown Sex and Gender Information Value Date Recorded Sex Assigned at Not on file Legal Sex Female 5:22 AM OTHER SPATIAL SCIENTIST Gender Identity Not on file Sexual Orientation Not on file documented as of this encounter Plan of Treatment Not on file documented as of this encounter Visit Diagnoses Diagnosis Unspecified nonpsychotic mental disorder- Primary documented in this encounter Additional Health Concerns Infection Onset Date Last Indicated Resolved Time VRE Comment:Urine 10/30/13 Resolved 11/04/2013 11/04/2013 8 10:33 AM OTHER SPATIAL SCIENTIST R/O COVID-19 12/25/2019 12/25/2019 12/26/2019 2:46 PM CDT R/O COVID-19 05/09/2020 05/09/2020 05/09/2020 12:1 7 PM OTHER SPATIAL SCIENTIST documented as of this encounter Care Teams Bull Gang Supervisor Relationship Specialty Start Date End Date Dara Tavera FNP [address] [place] [phone] PCP - General NURSE PRACTITIONER 10/13/18 documented as of this encounter
--- OUTSIDE RECORDS SUMMARY | 2025-05-11 21:59 | XMS_ITS | Encounter Summary ---
Author Organization [facility] Address [address] [place] [address] Care Team Providers Care Patcher Wood Welder Name Role Phone Dara Tavera Primary Care Provider [phone] Encounter Details Date Type Department Care Team (Latest Contact Info) Description 04/12/2006 Outpatient Historical [facility] [address] [place] [address] AMBULANCE, [facility] Nausea with Vomiting (Primary Dx) Social History Tobacco Use Types Packs/Day Years Used Date Smoking Tobacco: Never Assessed Comments Unknown Sex and Gender Information Value Date Recorded Sex Assigned at Not on file Legal Sex Female 5:22 AM DRILL BIT SHARPENER Gender Identity Not on file Sexual Orientation Not on file documented as of this encounter Plan of Treatment Not on file documented as of this encounter Visit Diagnoses Diagnosis Nausea with vomiting- Primary documented in this encounter Additional Health Concerns Infection Onset Date Last Indicated Resolved Time VRE Comment:Urine 10/30/13 Resolved 11/04/2013 11/04/2013 8 10:33 AM DRILL BIT SHARPENER R/O COVID-19 12/25/2019 12/25/2019 12/26/2019 2:46 PM CDT R/O COVID-19 05/09/2020 05/09/2020 05/09/2020 12:1 7 PM DRILL BIT SHARPENER documented as of this encounter Care Teams Patcher Wood Welder Relationship Specialty Start Date End Date Dara Tavera FNP [address] [place] [phone] PCP - General NURSE PRACTITIONER 10/13/18 documented as of this encounter
--- OUTSIDE RECORDS SUMMARY | 2025-05-11 21:59 | XMS_ITS | Encounter Summary ---
Author Organization [facility] Address [address] [place] [address] Care Team Providers Care Human Capital Analyst Name Role Phone Dara Tavera Primary Care Provider Encounter Details Date Type Department Care Team (Latest Contact Info) Description 01/31/2006 Outpatient Historical [facility] [address] [place] [address] AMBULANCE, [facility] Unspecified Nonpsychotic Mental Disorder (Primary Dx) Social History Tobacco Use Types Packs/Day Years Used Date Smoking Tobacco: Never Assessed Comments Unknown Sex and Gender Information Value Date Recorded Sex Assigned at Not on file Legal Sex Female 5:22 AM SHOE STICKS REPAIRER Gender Identity Not on file Sexual Orientation Not on file documented as of this encounter Plan of Treatment Not on file documented as of this encounter Visit Diagnoses Diagnosis Unspecified nonpsychotic mental disorder- Primary documented in this encounter Additional Health Concerns Infection Onset Date Last Indicated Resolved Time VRE Comment:Urine 10/30/13 Resolved 11/04/2013 11/04/2013 8 10:33 AM SHOE STICKS REPAIRER R/O COVID-19 12/25/2019 12/25/2019 12/26/2019 2:46 PM CDT R/O COVID-19 05/09/2020 05/09/2020 05/09/2020 12:1 7 PM SHOE STICKS REPAIRER documented as of this encounter Care Teams Human Capital Analyst Relationship Specialty Start Date End Date Dara Tavera FNP [address] [place] [phone] PCP - General NURSE PRACTITIONER 10/13/18 documented as of this encounter
--- OUTSIDE RECORDS SUMMARY | 2025-05-11 21:59 | XMS_ITS | Encounter Summary ---
Author Organization [facility] Address [address] [place] [address] Care Team Providers Care Width Stripper Name Role Phone Dara Tavera COLLEGE ATHLETIC DIRECTOR Primary Care Provider Encounter Details Date Type [...] on file Legal Sex Female 5:22 AM BABY STROLLER RENTAL CLERK Gender Identity Not on file Sexual [...] By: Lionel Hays M.D. Date Signed: 11/29/06 [facility] Procedure Note 05/09/2009 Multiplanar imaging of [...] By: Lionel Hays M.D. Date Signed: 11/29/06 [facility] Luis Ross MD MR ORDERABLES Final [...] 10/30/13 Resolved 11/04/2013 11/04/2013 8 10:33 AM BABY STROLLER RENTAL CLERK R/O COVID-19 12/25/2019 12/25/2019 12/26/2019 2:46 PM CDT R/O COVID-19 05/09/2020 05/09/2020 05/09/2020 12:1 7 PM BABY STROLLER RENTAL CLERK documented as of this encounter Care Teams Width Stripper Relationship Specialty Start Date End Date Dara Tavera FNP [address] [place] [phone] PCP - General NURSE PRACTITIONER 4/27/19 documented as of this encounter
--- OUTSIDE RECORDS SUMMARY | 2025-05-11 21:59 | XMS_ITS | Encounter Summary ---
Author Organization [facility] Address [address] [place] [address] Care Team Providers Care Milk Condenser Name Role Phone Dara Tavera Primary Care Provider Encounter Details Date Type Department Care Team (Latest Contact Info) Description 03/15/2006 Outpatient Historical [facility] Medicine [place] [address] [facility] [address] [place] [address] Faiza Petersen MD NO ADDRESS ON FILE Open Wnd Anterior Abdomen (Primary Dx); Obesity, Unspecified Social History Tobacco Use Types Packs/Day Years Used Date Smoking Tobacco: Never Assessed Comments Unknown Sex and Gender Information Value Date Recorded Sex Assigned at Not on file Legal Sex Female 5:22 AM HELICOPTER DISPATCHER Gender Identity Not on file Sexual [...] Resolved 11/04/2013 11/04/2013 8 10:33 AM HELICOPTER DISPATCHER R/O COVID-19 12/25/2019 12/25/2019 12/26/2019 2:46 PM CDT R/O COVID-19 05/09/2020 05/09/2020 05/09/2020 12:1 7 PM HELICOPTER DISPATCHER documented as of this encounter Care Teams Milk Condenser Relationship Specialty Start Date End Date Dara Tavera FNP [address] [place] [address] PCP - General NURSE PRACTITIONER 10/13/18 documented as of this encounter
--- OUTSIDE RECORDS SUMMARY | 2025-05-11 21:59 | XMS_ITS | Clinical Summary ---
Author Organization [facility] Address [address] [place] [address] Care Team Providers Care Acls Nurse Name Role Phone Sally Dong MD Primary Care Provider [phone] Allergies Active Allergy Reactions Criticality Noted Date Comments Adhesive Rash Low 02/12/2009 Codeine Nausea and Vomiting Low 02/12/2009 Duloxetine Other (See Comments) 02/24/2015 Fentanyl Hives High 11/07/2019 Fluoxetine Unknown 10/20/2018 Gabapentin Unknown,Hallucination Low 02/12/2009 Haloperidol Unknown 01/04/2022 Tardive dyskinesia Ketorolac Tromethamine Other (See Comments) Low Adverse drug reaction [place] Unknown 02/12/2009 Other reaction(s): shakey Metoclopramide Hcl [...] for Nausea/Emesis. Active naloxone (NARCAN) 4 mg/spray [place], Non-Aerosol EMERGENCY USE ONLY: Administer 1 spray [...] Hematochezia 07/07/2009 10/26/2012 Personal history of MRSA (nh thicillin resistant Staphylococcus aureus) 06/27/2009 018 Overview (10/14/2020): Under the arm abscess ~ 2015 Fever and chills 02/12/2009 10/26/2012 Hypoxemia 02/12/2009 04/06/2014 Encounters Date Type Department Care Team Description 05/01/2025 5:15 AM HOPPER FEEDER - 05/01/2025 11:59 PM HOPPER FEEDER Hospital Encounter [facility] Emergency Medical Services [place] [address] [place] [address] [facility] Discharge Disposition: [facility] 04/29/2025 6:20 AM HOPPER FEEDER - 04/29/2025 11:59 PM HOPPER FEEDER Hospital Encounter [facility] Emergency Medical Services [place] [address] [address] [facility]: [facility] 04/20/2025 5:25 AM HOPPER FEEDER - 04/20/2025 11:59 PM HOPPER FEEDER Hospital Encounter [facility] Emergency Medical Services [place] [address] [address] [facility]: [facility] 04/19/2025 8:27 PM CDT - 04/19/2025 9:59 PM CDT Emergency [facility] Emergency Medicine [address] [facility] [address] [place] [address] Tommy Matthews MD Sprain of right shoulder, unspecified shoulder sprain type, initial encounter (Primary Dx) Discharge Disposition: Home or Self Care 04/19/2025 Travel 04/10/2025 1:07 PM CDT - 04/10/2025 11:59 PM CDT Hospital Encounter [facility] [address] [facility] [address] [place] [address] Dara Tavera FNP Discharge Disposition: Home or Self Care 04/10/2025 Orders Only [facility] Admitting [address] [facility] [address] [place] [address] Dara Tavera FNP Low back pain with sciatica, sciatica laterality unspecified, unspecified back pain laterality, unspecified chronicity (Primary Dx) 04/07/2025 10:00 PM CDT - 04/08/2025 12:56 AM CDT Emergency [facility] Emergency Medicine [address] [facility] [address] [place] [address] Tommy Matthews MD Right flank pain (Primary Dx) Discharge Disposition: Home or Self Care 04/07/2025 Travel 03/23/2025 12:30 AM CDT - 03/23/2025 11:59 PM CDT Hospital Encounter [facility] [address] [facility] [address] [place] [address] Ambulance, [facility] Discharge Disposition: [facility] 03/18/2025 8:36 AM CDT - 03/18/2025 10:03 AM CDT Emergency [facility] Emergency Medicine [address] [facility] [address] [place] [address] Neck pain (Primary Dx) Discharge Disposition: Home or Self Care 03/08/2025 5:56 PM CDT - 03/08/2025 9:25 PM CDT Emergency [facility] Emergency Medicine [address] [facility] [address] [place] [address] Anand Bower DO Flank pain (Primary Dx) Discharge Disposition: Home or Self Care 03/08/2025 Travel 03/02/2025 1:05 PM CDT - 03/02/2025 11:59 PM CDT Hospital Encounter [facility] Services [place] [address] [place] [address] Ambulance, [facility] Discharge Disposition: [facility] 02/20/2025 8:40 PM CDT - 02/20/2025 10:04 PM CDT Emergency [facility] Emergency Medicine [address] [facility] [address] [place] [address] Tommy Matthews MD Chronic neck pain (Primary Dx) Discharge Disposition: Home or Self Care 02/20/2025 Travel 02/15/2025 4:28 PM CDT - 02/15/2025 5:10 PM CDT Emergency [facility] Emergency Medicine [address] [facility] [address] [place] [address] Neck muscle spasm (Primary Dx) Discharge Disposition: Home or Self Care 02/11/2025 10:49 AM CDT - 02/11/2025 11:59 PM CDT Hospital Encounter [facility] [address] [facility] [address] [place] [address] Dara Tavera FNP Discharge Disposition: Home or Self Care 02/11/2025 Orders Only [facility] Admitting [address] [facility] [address] [place] [address] Dara Tavera FNP Cervicalgia (Primary Dx) 02/09/2025 9:24 AM CDT - 02/09/2025 10:00 AM CDT Emergency [facility] Emergency Medicine [address] [facility] [address] [place] [address] Tommy Matthews MD Cervicalgia (Primary Dx) Discharge Disposition: Home or Self Care 02/09/2025 - 02/09/2025 11:59 PM CDT Hospital Encounter [facility] Emergency Medical Services [place] [address] [place] [address] Ambulance, [facility] Discharge Disposition: [facility] 02/09/2025 Travel from Last 3 [...] How often do you attend taoist or hindu serv ices? Not asked 05/05/2019 Do you [...] about transportation for future doctor visits, pick pack worker medication, etc.? No 2024 Housing Stability Answer [...] PM CDT Legal Sex Female 2:06 AM HOPPER FEEDER Gender Identity Female 03/25/2024 4:14 PM CDT [...] 02/19/2014, 02/17/2013, Additional history exists COVID-19 Vaccine (2024-2 6 season) 2025 05/08/2024, 09/24/2020 Procedures Procedure Name Priority Date/Time [...] Cervicalgia HEMOGLOBIN A1C Routine 06/17/2018 7:12 AM HOPPER FEEDER from Last 3 Months or Most Recently [...] spine degenerative changes and scoliosis. Dara Tavera TECHNICAL PROJECT COORDINATOR DIAGNOSTIC IMAGING ORDERABL ES Final Result * (ABNORMAL) CBC WITH DIFFERENTIAL (04/07/2025 11:58 PM CDT) Only the most recent of2 resultswithin the time period is included. WBC 16.1(H) 4.0 - 10.0 K/uL 04/08/2025 12:26 AM [facility] RBC 3.99 3.93 - 5.22 M/uL 04/08/2025 12:26 AM [facility] HEMOGLOBIN 13.3 11.2 - 15.7 g/dL 04/08/2025 12:26 AM [facility] HEMATOCRIT 38.3 34.1 - 44.9 % 04/08/2025 12:26 AM [facility] MCV 96.0(H) 79.4 - 94.8 fL 04/08/2025 12:26 AM [facility] MCH 33.3(H) 25.6 - 32.2 pg 04/08/2025 12:26 AM [facility] MCHC 34.7 32.2 - 35.5 g/dL 04/08/2025 12:26 AM [facility] RDW 12.7 11.0 - 14.5 % 04/08/2025 12:26 AM [facility] RDW-STDEV 44.9 36.9 - 56.9 fL 04/08/2025 12:26 AM [facility] PLATELETS 234 163 - 337 K/uL 04/08/2025 12:26 AM [facility] MPV 9.8(L) 10.0 - 14.8 fL 04/08/2025 12:26 AM [facility] NEUTROPHILS 75(H) 34 - 71 % 04/08/2025 12:26 AM [facility] LYMPHOCYTES 16(L) 19 - 52 % 04/08/2025 12:26 AM [facility] MONOCYTES 6 5 - 13 % 04/08/2025 12:26 AM [facility] EOSINOPHILS 2 1 - 6 % 04/08/2025 12:26 AM [facility] BASOPHILS 1 0 - 1 % 04/08/2025 12:26 AM [facility] IMMATURE GRANULOCYTES 0 % 04/08/2025 12:26 AM [facility] NEUTROPHIL ABSOLUTE 12.05(H) 1.56 - 6.13 K/uL 04/08/2025 12:26 AM [facility] LYMPHOCYTE ABSOLUTE 2.57 1.20 - 3.40 K/uL 04/08/2025 12:26 AM [facility] MONOCYTE ABSOLUTE 0.99(H) 0.24 - 0.36 K/uL 04/08/2025 12:26 AM [facility] EOSINOPHIL ABSOLUTE 0.27 0.04 - 0.36 K/uL 04/08/2025 12:26 AM [facility] BASOPHILS ABSOLUTE 0.12(H) 0.01 - 0.08 K/uL 04/08/2025 12:26 AM [facility] IMMATURE GRANULOCYTES ABSOLUTE 0.05 K/uL 04/08/2025 12:26 AM [facility] Blood BLOOD SPECIMEN / Unknown Collection / Unknown 04/07/2025 11:58 PM CDT 04/08/2025 12:22 AM T us Tommy Matthews MD HEMATOLOGY ORDERABLES Fi nal Result [facility] CLIA # [id number] [address] [place] [address] * LIPASE (04/07/2025 11:58 PM CDT) Only the most recent of2 resultswithin the time period is included. Pathologist [facility] LIPASE 20 13 - 60 U/L 04/08/2025 12:42 AM [facility] Blood BLOOD SPECIMEN / Unknown Collection / Unknown 04/07/2025 11:58 PM CDT 04/08/2025 12:22 AM CDT us Tommy Matthews MD CHEMISTRY ORDERABLES Fin al [id number] [address] [place] [address] * (ABNORMAL) COMPREHENSIVE METABOLIC PANEL (04/07/2025 11:58 PM CDT) Only the most recent of2 resultswithin the time period is included. [facility] SODIUM 134(L) 136 - 145 mmol/L 04/08/2025 12:42 AM [facility] POTASSIUM 3.7 3.5 - 5.1 mmol/L 04/08/2025 12:42 AM [facility] CHLORIDE 99 98 - 107 mmol/L 04/08/2025 12:42 AM [facility] CO2 24 22 - 29 mmol/L 04/08/2025 12:42 AM [facility] CALCIUM 9.9 8.6 - 10.0 mg/dL 04/08/2025 12:42 AM [facility] BUN 14 6 - 20 mg/dL 04/08/2025 12:42 AM [facility] CREATININE 0.97(H) 0.51 - 0.95 mg/dL 04/08/2025 12:42 AM [facility] GLUCOSE 100(H) 74 - 99 mg/dL 04/08/2025 12:42 AM [facility] TOTAL PROTEIN 6.7 6.6 - 8.7 g/dL 04/08/2025 12:42 AM CDT [facility] ALBUMIN 4.1 3.5 - 5.2 g/dL 04/08/2025 12:42 AM [facility] BILIRUBIN TOTAL 0.2 0.0 - 1.2 mg/dL 04/08/2025 12:42 AM [facility] ALKALINE PHOSPHATASE 121(H) 35 - 104 U/L 04/08/2025 12:42 AM [facility] AST 16 0 - 35 U/L 04/08/2025 12:42 AM [facility] ALT 10 0 - 35 U/L 04/08/2025 12:42 AM [facility] GFR >60 >=60 mL/min/1.7 3 sq meter 04/08/2025 12:42 AM [facility] Comment:eGFR calculated with 2020 CKD-EPI equation. Vegetarian diet, extremely high or low muscle mass, and may affect results. Cystatin C with Glomerular Filtration Rate is a suitable alternative for these patients. ANION GAP 11 5 - 20 mmol/L 04/08/2025 12:42 AM T [facility] Blood BLOOD SPECIMEN / Unknown Collection / Unknown 04/07/2025 11:58 PM CDT 04/08/2025 12:22 AM CDT us Tommy Matthews MD CHEMISTRY ORDERABLES Fin al Result [facility] # [id number] [address] [place] [address] * CT ABDOMEN PELVIS WO CONTRAST (04/07/2025 [...] - 2 /hpf 04/07/2025 9:37 PM CDT [facility] RBC UA 0-2 0 - 2 /hpf 04/07/2025 9:37 PM CDT [facility] BACTERIA UA Negative Negative /hpf 04/07/2025 9:37 PM CDT [facility] EPITHELIAL CELLS, URINE 0-5 0 - 5 /hpf 04/07/2025 9:37 PM CDT [facility] Urine URINE SPECIMEN OBTAINED BY CLEAN CATCH PROCEDURE / Unknown Collection / Unknown 04/07/2025 9:30 PM CDT 04/07/2025 9:34 PM CDT Tommy Matthews MD URINE ORDERABLES Final R esult [facility] CLIA # [id number] [address] [place] [address] * (ABNORMAL) URINALYSIS WITH REFLEX MICROSCOPIC (04/07/2025 9:30 PM CDT) Only the most recent of2 resultswithin the time period is included. COLOR UA Yellow Pale to Dark Yellow 04/07/2025 9:37 PM CDT [facility] CLARITY UA Clear Clear 04/07/2025 9:37 PM CDT [facility] SPECIFIC GRAVITY UA <=1.005 1.003 - 1.035 04/07/2025 9:37 PM CDT [facility] PH UA 6.0 5.0 - 8.0 04/07/2025 9:37 PM CDT [facility] LEUKOCYTE ESTERASE UA 1+(A) Negative 04/07/2025 9:37 PM CDT [facility] NITRITE UA Negative Negative 04/07/2025 9:37 PM CDT [facility] PROTEIN UA Negative Negative 04/07/2025 9:37 PM CDT [facility] GLUCOSE UA Negative Negative 04/07/2025 9:37 PM CDT [facility] KETONES UA Negative Negative 04/07/2025 9:37 PM CDT [facility] UROBILINOGEN UA 0.2 <2.0 mg/dL 9:37 PM CDT [facility] BILIRUBIN UA Negative Negative 04/07/2025 9:37 PM CDT [facility] BLOOD UA Negative Negative 04/07/2025 9:37 PM CDT [facility] Urine URINE SPECIMEN OBTAINED BY CLEAN CATCH PROCEDURE / Unknown Collection / Unknown 04/07/2025 9:30 PM CDT 04/07/2025 9:34 PM CDT us Tommy Matthews MD URINE ORDERABLES Final R esult [id number] [address] [place] [address] * XR ABDOMEN 1 VW (03/08/2025 8:06 [...] DRUG SCREEN, URINE (03/08/2025 6:03 PM CDT) [facility] Signature CANNABINOIDS QUAL, URINE Negative Negative 03/08/2025 6:33 PM CDT [facility] PCP QUAL, URINE Negative Negative 6:33 PM CDT [facility] COCAINE QUAL URINE Negative Negative 2024 6:33 PM CDT [facility] METHAMPHETAMINE QUAL, URINE Negative Negative 03/08/2025 6:33 PM CDT [facility] OPIATE QUAL, URINE Presumptive Positive(A) Negative 03/08/2025 6:33 PM CDT [facility] AMPHETAMINE QUAL, URINE Negative Negative 03/08/2025 6:33 PM CDT [facility] BENZODIAZEPINE QUAL, URINE Presumptive Positive(A) Negative 03/08/2025 6:33 PM CDT [facility] TRICYCLICS QUAL, URINE Presumptive Positive(A) Negative 03/08/2025 6:33 PM CDT [facility] METHADONE QUAL, URINE Negative Negative 03/08/2025 6:33 PM CDT [facility] BARBITURATE QUAL, URINE Negative Negative 03/08/2025 6:33 PM CDT [facility] OXYCODONE QUAL, URINE Negative Negative 03/08/2025 6:33 PM CDT [facility] Urine URINE SPECIMEN OBTAINED BY CLEAN CATCH PROCEDURE / Unknown Collection / Unknown 03/08/2025 6:03 PM CDT 03/08/2025 6:17 PM CDT Narrative [facility] - 03/08/2025 6:33 PM CDT [...] Anand Bower DO URINE ORDERABLES Final Result [facility] CLIA # [id number] [address] [place] [address] * XR CERVICAL SPINE 2 OR 3 [...] identified. Impression: 1. As above. us Dara Ayse TECHNICAL PROJECT COORDINATOR DIAGNOSTIC IMAGING ORDERABL ES Final Result * HEMOGLOBIN A1C (06/17/2018 7:12 AM HOPPER FEEDER) HEMOGLOBIN A1C 5.2 4.8 - 5.9 % 06/17/2018 9:37 AM HOPPER FEEDER [facility] EST. AVG GLUCOSE, A1C 103 mg/dL 06/17/2018 9:37 AM [facility] Blood Venipuncture / Unknown 06/17/2018 7:12 AM HOPPER FEEDER 06/17/2018 7:13 AM HOPPER FEEDER Narrative [facility] - 06/17/2018 9:37 AM HOPPER FEEDER If not available from last three months. HGB A1C INTERPRETATION NORMAL: <5.7% PRE-DIABETES: 5.7 - 6.4% DIABETES: 6.5% OR GREATER us Benedicto Mcgill MD CHEMISTRY ORDERABLES Final Result [facility] [id number] [address] [place] [address] [facility] CLIA # [id number] [address] [place] [address] from Last 3 Months or Most Recently Relevant to Health Maintenance Insurance [place]ICAID [place] [facility] DUAL COMPLETE HMO DSNP [facility] [id number] [place] Advance Directives For more information, please contact: [phone] Documents on File Type Date Recorded Patient Rn Hemo Dialysis Expl anation Advance Directive POA 02/23/2024 3:51 [...] 1:52 AM 10/27/2021 2:07 PM Care Teams Acls Nurse Relationship Specialty Start Date End Date Sally Dong MD [address] [phone] PCP - General Family Practice 04/07/22
--- OUTSIDE RECORDS SUMMARY | 2025-05-11 21:59 | XMS_ITS | Encounter Summary ---
Author Organization [facility] Address [address] [place] [address] Care Team Providers Care Applications Processor Name Role Phone Dara Tavera Primary Care Provider Encounter Details Date Type Department Care Team (Latest Contact Info) Description 04/08/2006 Outpatient Historical [facility] [address] [place] [address] AMBULANCE, [facility] Unspecified Epilepsy without Mention of Intractable Epilepsy (CMS/HCC) (Primary Dx) Social History Tobacco Use Types Packs/Day Years Used Date Smoking Tobacco: Never Assessed Comments Unknown Sex and Gender Information Value Date Recorded Sex Assigned at Not on file Legal Sex Female 5:22 AM APPLICATION SUPPORT ADMINISTRATOR Gender Identity Not on file Sexual [...] 11/04/2013 11/04/2013 8 10:33 AM APPLICATION SUPPORT ADMINISTRATOR R/O COVID-19 12/25/2019 12/25/2019 12/26/2019 2:46 PM CDT R/O COVID-19 05/09/2020 05/09/2020 05/09/2020 12:1 7 PM APPLICATION SUPPORT ADMINISTRATOR documented as of this encounter Care Teams Applications Processor Relationship Specialty Start Date End Date Dara Tavera FNP [address] [place] [address] PCP - General NURSE PRACTITIONER 10/13/18 documented as of this encounter
--- OUTSIDE RECORDS SUMMARY | 2025-05-11 21:59 | XMS_ITS | Encounter Summary ---
Author Organization [facility] Address [address] [place] [address] Care Team Providers Care Stoneworking Belt Sander Name Role Phone Dara Tavera CHINESE HERBALIST Primary Care Provider Encounter Details Date Type Department Care Team (Late st Contact Info) Description 10/24/2011 Ancillary Orders [facility] [address] [place] [address] Raleigh Najera MD NO ADDRESS [...] file Legal Sex Female 5:22 AM PUBLIC INFORMATION OFFICER Gender Identity Not on file Sexual [...] acute changes seen jaw - transcribed in INDOM 10/26/2011 11:18 AM CDT ATTENTION: This replaces accession number [id number]. DESCRIPTION: AP view of the pelvis 4May 2011 shows several VersaTac spiral staple postoperative artifacts in the left inguinal region. Pelvic soft tissues appear unremarkable. The bones of the pelvis appear intact. Procedure Note Andre Vega MD - 10/26/2011 ATTENTION: This replaces accession number [id number]. DESCRIPTION: AP view of the pelvis 4May 2011 shows several VersaTac spiral staple postoperative artifacts in the left inguinal region. Pelvic soft tissues appear unremarkable. The bones of the pelvis appear intact. IMPRESSION no acute changes seen jaw - transcribed in [facility] - us Raleigh Najera MD DIAGNOSTIC IMAGING ORDERABLE S Final Result * XR LUMBAR SPINE 2 OR 3 VW (10/21/2011 2:05 PM CDT) Anatomical Region Laterality Modality Spine Computed Radiogr aphy Impressions 10/26/2011 11:18 AM CDT 1. mild arthritic change 2. no acute changes seen jaw - transcribed in INDOM 10/26/2011 11:18 AM CDT ATTENTION: This replaces accession number [id number]. DESCRIPTION: AP and lateral lumbar spine views [...] - 10/26/2011 ATTENTION: This replaces accession number [id number]. DESCRIPTION: AP and lateral lumbar spine views [...] Resolved 11/04/2013 11/04/2013 8 10:33 AM PUBLIC INFORMATION OFFICER R/O COVID-19 12/25/2019 12/25/2019 12/26/2019 2:46 PM CDT R/O COVID-19 05/09/2020 05/09/2020 05/09/2020 12:1 7 PM PUBLIC INFORMATION OFFICER documented as of this encounter Care Teams Stoneworking Belt Sander Relationship Specialty Start Date End Date Dara Tavera FNP [address] [place] [address] PCP - General NURSE PRACTITIONER 10/13/18 documented as of this encounter
--- OUTSIDE RECORDS SUMMARY | 2025-05-11 21:59 | XMS_ITS | Encounter Summary ---
Author Organization [facility] Address [address] [place] [address] Care Team Providers Care Senior Process Engineer Name Role Phone Dara Tavera Primary Care Provider Encounter Details Date Type Department Care Team (Latest Contact Info) Description 04/07/2006 Outpatient Historical [facility] [address] [place] [address] AMBULANCE, [facility] Other Convulsions (CMS/HCC) (Primary Dx) Social History Tobacco Use Types Packs/Day Years Used Date Smoking Tobacco: Never Assessed Comments Unknown Sex and Gender Information Value Date Recorded Sex Assigned at Not on file Legal Sex Female 5:22 AM COOKING TEACHER Gender Identity Not on file Sexual Orientation Not on file documented as of this encounter Plan of Treatment Not on file documented as of this encounter Visit Diagnoses Diagnosis Other convulsions- Primary documented in this encounter Additional Health Concerns Infection Onset Date Last Indicated Resolved Time 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
--- OUTSIDE RECORDS SUMMARY | 2025-05-11 21:59 | XMS_ITS | Encounter Summary ---
Author Organization [facility] Address [address] [place] [address] Care Team Providers Care Rubber Molder Name Role Phone Dara Tavera Primary Care Provider [phone] Encounter Details Date Type Department Care Team (Latest Contact Info) Description 12/28/2005 Outpatient Historical [facility] [place] [address] [facility] [address] [place] [address] Faiza Petersen MD NO ADDRESS ON FILE Open Wnd Anterior Abdomen (Primary Dx); Other Postsurgical Status Social History Tobacco Use Types Packs/Day Years Used Date Smoking Tobacco: Never Assessed Comments Unknown Sex and Gender Information Value Date Recorded Sex Assigned at Not on file Legal Sex Female 5:22 AM MANAGER STONE Gender Identity Not on file Sexual Orientation [...] Resolved 11/04/2013 11/04/2013 8 10:33 AM MANAGER STONE R/O COVID-19 12/25/2019 12/25/2019 12/26/2019 2:46 PM CDT R/O COVID-19 05/09/2020 05/09/2020 05/09/2020 12:1 7 PM MANAGER STONE documented as of this encounter Care Teams Rubber Molder Relationship Specialty Start Date End Date Dara Tavera FNP [address] [place] [phone] PCP - General NURSE PRACTITIONER 10/13/18 documented as of this encounter
--- OUTSIDE RECORDS SUMMARY | 2025-05-11 21:59 | XMS_ITS | Encounter Summary ---
Author Organization [facility] Address [address] [place] [address] Care Team Providers Care Child Care Associate Teacher Name Role Phone Dara Tavera Primary Care Provider Encounter Details Date Type Department Care Team (Latest Contact Info) Description 12/12/2006 Outpatient Historical [facility] [address] [place] [address] AMBULANCE, [facility] Open Wound of Wrist, without Mention of Complication (Primary Dx) Social History Tobacco Use Types Packs/Day Years Used Date Smoking Tobacco: Never Assessed Comments Unknown Sex and Gender Information Value Date Recorded Sex Assigned at Not on file Legal Sex Female 5:22 AM MANAGER CAREER Gender Identity Not on file Sexual Orientation Not on file documented as of this encounter Plan of Treatment Not on file documented as of this encounter Visit Diagnoses Diagnosis Open wound of wrist, without mention of complication- Primary documented in this encounter Additional Health Concerns Infection Onset Date Last Indicated Resolved Time 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
--- OUTSIDE RECORDS SUMMARY | 2025-05-11 21:59 | XMS_ITS | Encounter Summary ---
Author Organization [facility] Address [address] [place] [address] Care Team Providers Care Crime Scene Photographer Name Role Phone Dara Tavera Primary Care Provider Encounter Details Date Type Department Care Team (Late st Contact Info) Description 05/19/2008 Outpatient Historical [facility] [address] 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
--- OUTSIDE RECORDS SUMMARY | 2025-05-11 21:59 | XMS_ITS | Encounter Summary ---
Author Organization [facility] Address [address] [place] [address] Care Team Providers Care Assistant Food Service Manager Name Role Phone Dara Tavera Primary Care Provider Encounter Details Date Type Department Care Team (Latest Contact Info) Description 03/16/2006 Outpatient Historical [facility] [address] [place] [address] AMBULANCE, [facility] Abdominal Pain, Unspecified Site (Primary Dx) Social History Tobacco Use Types Packs/Day Years Used Date Smoking Tobacco: Never Assessed Comments Unknown Sex and Gender Information Value Date Recorded Sex Assigned at Not on file Legal Sex Female 5:22 AM TITLE INSPECTOR Gender Identity Not on file Sexual Orientation Not on file documented as of this encounter Plan of Treatment Not on file documented as of this encounter Visit Diagnoses Diagnosis Abdominal pain, unspecified site- Primary documented in this encounter Additional Health Concerns Infection Onset Date Last Indicated Resolved Time 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
--- OUTSIDE RECORDS SUMMARY | 2025-05-11 21:59 | XMS_ITS | Encounter Summary ---
Author Organization [facility] Address [address] [place] [address] Care Team Providers Care Supervisor Polishing Name Role Phone Dara Tavera LUMBER CUTTER Primary Care Provider Reason for Visit * Reason Comments Medication Refill Encounter Details Date Type Department Care Team (Late st Contact Info) Description 07/25/2019 Refill [facility] [address] [place] [address] Danial Farias, HETAL [address] [place] [address] Social History Tobacco Use Types [...] asked 05/05/2019 How often do you attend sabianist or gnosticism serv ices? Not asked 05/05/2019 Do you belong to any clubs o r organizations such as sabianist groups, unions, fraternal or athletic groups, or [...] on file Legal Sex Female 5:22 AM IMPROVEMENT LEADER Gender Identity Not on file Sexual [...] COVID-19 05/09/2020 05/09/2020 05/09/2020 12:1 7 PM IMPROVEMENT LEADER documented as of this encounter Care Teams Supervisor Polishing Relationship Specialty Start Date End Date Dara Tavera FNP [address] [place] [phone] PCP - General NURSE PRACTITIONER 10/13/18 documented as of this encounter
--- OUTSIDE RECORDS SUMMARY | 2025-05-11 21:59 | XMS_ITS | Encounter Summary ---
Author Organization [facility] Address [address] [place] [address] Care Team Providers Care Engraver Flatware Name Role Phone Dara Tavera Primary Care Provider Encounter Details Date Type Department Care Team (Latest Contact Info) Description 01/05/2006 Outpatient Historical [facility] [address] [place] [address] AMBULANCE, [facility] Abdominal Pain, Unspecified Site (Primary Dx) Social History Tobacco Use Types Packs/Day Years Used Date Smoking Tobacco: Never Assessed Comments Unknown Sex and Gender Information Value Date Recorded Sex Assigned at Not on file Legal Sex Female 5:22 AM LATHE SPOTTER Gender Identity Not on file Sexual Orientation Not on file documented as of this encounter Plan of Treatment Not on file documented as of this encounter Visit Diagnoses Diagnosis Abdominal pain, unspecified site- Primary documented in this encounter Additional Health Concerns Infection Onset Date Last Indicated Resolved Time 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
--- OUTSIDE RECORDS SUMMARY | 2025-05-11 21:59 | XMS_ITS | Encounter Summary ---
Author Organization [facility] Address [address] [place] [address] Care Team Providers Care Quality Control Tester Name Role Phone Dara Tavera Primary Care Provider Encounter Details Date Type Department Care Team (Latest Contact Info) Description 04/13/2006 Outpatient Historical [facility] [address] [place] [address] AM[address]ANCE, [facility] Nausea with Vomiting (Primary Dx) Social History Tobacco Use Types Packs/Day Years Used Date Smoking Tobacco: Never Assessed Comments Unknown Sex and Gender Information Value Date Recorded Sex Assigned at Not on file Legal Sex Female 5:22 AM SENIOR MARKETING ANALYST Gender Identity Not on file Sexual Orientation Not on file documented as of this encounter Plan of Treatment Not on file documented as of this encounter Visit Diagnoses Diagnosis Nausea with vomiting- Primary documented in this encounter Additional Health Concerns Infection Onset Date Last Indicated Resolved Time 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
--- OUTSIDE RECORDS SUMMARY | 2025-05-11 21:59 | XMS_ITS | Encounter Summary ---
Author Organization [facility] Address [address] [place] [address] Care Team Providers Care Savings Teller Name Role Phone Dara Tavera AMANDEEP Primary Care Provider Encounter Details Date Type Department Care Team (Latest Contact Info) Description 01/14/2007 Outpatient Historical [facility] [address] [place] [address] AMBULANCE, [facility] Hemorrhage of Rectum and Anus (Primary Dx) Social History Tobacco Use Types Packs/Day Years Used Date Smoking Tobacco: Never Assessed Comments Unknown Sex and Gender Information Value Date Recorded Sex Assigned at Not on file Legal Sex Female 5:22 AM TEMPERING OVEN OPERATOR Gender Identity Not on file Sexual [...] 10/30/13 Resolved 11/04/2013 11/04/2013 8 10:33 AM TEMPERING OVEN OPERATOR R/O COVID-19 12/25/2019 12/25/2019 12/26/2019 2:46 PM CDT R/O COVID-19 05/09/2020 05/09/2020 05/09/2020 12:1 7 PM TEMPERING OVEN OPERATOR documented as of this encounter Care Teams Savings Teller Relationship Specialty Start Date End Date Dara Tavera FNP [address] [place] [phone] PCP - General NURSE PRACTITIONER 10/13/18 documented as of this encounter
--- OUTSIDE RECORDS SUMMARY | 2025-05-11 22:00 | XMS_ITS | Encounter Summary ---
Author Organization [facility] Address [address] [address] Care Team Providers Care Assembler Mechanical Ordnance Name Role Phone Dara Tavera AMANDEEP Primary Care Provider [phone] Encounter Details Date Type Department Care Team (Latest Contact Info) Description 07/10/2020 Ancillary Orders [facility] Centralized Scheduling [address] [place] [address] Don Loja MD [address] [place] [address] Abdominal pain, unspecified abdominal location; [...] asked 05/05/2019 How often do you attend protestant or methodist serv ices? Not asked 05/05/2019 Do you belong to any clubs o r organizations such as protestant groups, unions, fraternal or athletic groups, or [...] file Legal Sex Female 5:22 AM CLIENT ENGAGEMENT SPECIALIST Gender Identity Not on file Sexual [...] COVID-19? No / Unsure 07/08/2020 6:45 PM CLIENT ENGAGEMENT SPECIALIST documented as of this encounter Plan of Treatment Not on file documented as of this encounter Visit Diagnoses Diagnosis Abdominal pain, unspecified abdominal location Change in bowel habit documented in this encounter Care Teams Assembler Mechanical Ordnance Relationship Specialty Start Date End Date Dara Tavera FNP [address] [place] [phone] PCP - General NURSE PRACTITIONER 10/13/18 documented as of this encounter
[2025-05-11] MEDS: HYDROmorphone 0.5 MG/0.5 ML INJ 1 MG IVP (22:02)
--- NOTE | 2025-05-11 22:12 | ED_ITS ---
HPI - Chest Pain 2 General: Chief Complaint: Chest Pain Stated Complaint: cp History of Present Illness: Patient is a 59F with a pmhx of schizophrenia, chronic gastritis, esophageal stricture, COPD who presents with an acute onset of a generalized headache a few hours prior to arrival, which improved after taking Tylenol and resting. Subsequently, she developed chest pain described as pressure and tightness in the center of her chest, radiating to both sides of her neck and down her arm. She reports associated nausea but denies vomiting. She has had a few of these episodes this year, not increasing in frequency, at times exertional but also sometimes shortly after food intake, resolve on own with time and rest, no assoc SOB, vomiting, diaphoresis with these episodes. She continues to have mild headache but states the chest pain is her primary concern. Associated symptoms: Reports nausea and vomiting; Deny abdominal pain, dyspnea, fever(s) or palpitations Related Data Home Medications ?Medication ?Instructions ?Recorded ?Confirmed acetaminophen 500 mg tablet 1,000 mg PO Q6H PRN Pain 0 07/09/21 05/13/25 pantoprazole 40 mg tablet,delayed 40 mg PO BID 4 05/13/25 release ondansetron HCl 4 mg tablet 4 mg PO Q8H 01/22/2405/13 prednisolone acetate 1 % eye drp ophthalmic (eye) 04/2005/13/25 drops,suspension dicyclomine 10 mg capsule 10 mg PO BID PRN 05/27/24 sucralfate 1 gram tablet (Carafate) 1 g PO QID 4 05/13/25 famotidine 20 mg tablet mg PO 09/23/24 05/13/25 lubiprostone 24 mcg capsule mcg PO 09/23/24 05/13/25 Previous Rx's ?Medication ?Instructions ?Recorded nystatin 100,000 unit/gram topical 1 applic topical BI D #30 grams 06/16/22 powder SOLE Supports #1 ea 01/01/24 fluticasone propionate 50 1 spray intranasal DAILY PRN nasal 05/10/24 mcg/actuation nasal congestion 30 days #16 grams spray,suspension (Flonase Allergy Relief) Rollator Walker #1 ea 09/06/24 promethazine 25 mg tablet 12.5 - 25 mg (0.5 - 1 x 25 m g) PO 10/05/24 Q6H PRN nausea and vomiting #10 tabs albuterol sulfate 90 mcg/actuation See Rx Instructions .Route 11/22/24 aerosol inhaler .COMPLEX #9 grams cholecalciferol (vitamin D3) 1,250 1,250 mcg PO .once a week 90 days 12/16/24 mcg (50,000 unit) capsule #12 caps albuterol sulfate 2.5 mg/3 mL 2.5 mg (3 mL) inhalation Q8H PRN 03/26/25 (0.083 %) solution for nebulization bronchospasm 10 da ys #90 mL nebulizer #1 ea 03/26/25 cyclobenzaprine 10 mg tablet 10 mg PO TID PRN muscle s pasm #90 04/01/25 tabs lamotrigine 200 mg tablet 200 mg PO DAILY@06 #30 tabs 04/10/25 quetiapine 25 mg tablet See Rx Instructions PO .COMP MADISON 04/10/25 anxiety and agitation #150 tabs trazodone 300 mg tablet 300 mg PO .q hs PRN sleep #3 0 tabs 04/10/25 vortioxetine 20 mg tablet 20 mg PO .q am #30 tabs 03/20 09/10 vortioxetine 5 mg tablet 5 mg PO DAILY #30 tabs 04/10 hydrocodone 5 mg-acetaminophen 325 1 tab PO Q6H PRN pa in #20 tabs 04/29/25 mg tablet methocarbamol 750 mg tablet 750 mg PO Q6H PRN spasms # 20 tabs 05/01/25 tizanidine 4 mg tablet 4 mg PO BID PRN muscle spast icity 05/12/25 #60 tabs prednisone 20 mg tablet 20 mg PO DAILY #15 tabs 04/20 11/10 Allergies Allergy/AdvReac Type Severity Reaction Status Date / Time haloperidol (From Haldol) Allergy Severe unknown Verified 05/05/25 09:32 Penicillins Allergy Severe ALGY-Anaphy Verified 05/05/25 09:32 laxis sulfamethoxazole (From Allergy Severe ALGY-Hives Verified 05/05/25 09:32 Bactrim) Tetracyclines Allergy Severe ALGY-Hives Verified 05/05/25 09:32 gabapentin (From Neurontin) Allergy Intermediate ADR-Halluci Verified 05/05/25 09:32 nating ketorolac (From Toradol) Allergy Intermediate ALGY-Rash Verified 05/05/25 09:32 lithium Allergy Intermediate ADR-Halluci Verified 05/05/25 09:32 nating fentanyl Allergy Mild rash Verified 05/05/25 09:32 adhesive tape Allergy Rash Verified 05/05/25 09:32 codeine Allergy GI Verified 05/05/25 09:32 duloxetine (From Cymbalta) Allergy ALGY-Rash Verified 05/05/25 09:32 fluoxetine Allergy ADR-Migrain Verified 05/05/25 09:32 e metoclopramide (From Reglan) Allergy ADR-Shakine Verified 05/05/25 09:32 ss nitroglycerin Allergy ADV-Weaknes Verified 05/05/25 09:32 s tramadol Allergy Unknown Verified 05/05/25 09:32 trimethoprim (From Bactrim) Allergy ALGY-Hives Verified 05/05/25 09:32 ziprasidone (From Geodon) AdvReac Severe ADR-Halluci Verified 05/05/25 09:32 nating risperidone (From Risperdal) AdvReac ADR-Halluci Verified 05/05/25 09:32 nating Review of Systems 2 General: Reports: 10 or more systems reviewed and unremarkable except in HPI and below Const: Denies: fever(s) or chills Eyes: Denies: change in vision or eye discharge Card: Reports: chest pain; Denies: palpitations or swelling of feet/ankles Resp: Denies: dyspnea or productive cough GI: Reports: nausea and vomiting; Denies: abdominal pain or diarrhea Musc: Denies: neck pain or back pain Skin/Breast: Denies: rash or jaundice Neuro: Denies: headache(s), numbness in extremities or weakness in extremities Wilbur/Lymph: Denies: easy bruising or easy bleeding PFSH ED 2 PFSH: Medical History Chronic gastritis without bleeding Insomnia Tobacco use disorder Opioid dependence, uncomplicated Cannabis dependence, uncomplicated Psychiatric care Tardive dyskinesia Esophageal stricture Cystitis cystica Restrictive lung disease Chronic back pain greater than 3 months duration Borderline personality disorder Schizoaffective disorder, bipolar type Urgency incontinence Neurogenic bladder Dysphagia COPD (chronic obstructive pulmonary disease) GERD without esophagitis Foreign body in bladder Bladder stone Chronic anxiety Surgical History H/O bladder repair surgery MESH REPAIR H/O esophagogastroduodenoscopy (09/21/20) H/O colonoscopy with polypectomy History of foot surgery sx in 2009. Screws placed by Dr. Don. S/P bronchoscopy with biopsy History of ureter stent History of breast biopsy Hx of cholecystectomy H/O: hysterectomy History of appendectomy Family History Mother No problems noted. Father No problems noted. Other Asthma Cancer Diabetes Heart disease Social History Smoking and tobacco/nicotine status: former use of tobacco/nicotine Quit status (tobacco/nicotine): considering quitting Second hand smoke exposure: Yes Alcohol intake: never Substance/Drug Use: former Lives independently: Yes Household members: spouse Marital status: Number of children: 3 Current occupational status: disabled Do you think of yourself as: Straight/Heterosexual Current gender identity: Female Physical Exam 2 Narrative: EXAM NARRATIVE: Patient overall well-appearing, afebrile and vital signs stable on arrival, no acute distress, appears mildly anxious and with mildly repetitive lip smacking. head normocephalic, PERRL, moist mucous membranes, no cervical LAD. breathing comfortably on RA, saturating well, clear BL and no adventitious breath sounds, able to speak in full sentences without getting SOB, no signs of respiratory distress. NSR with no murmurs, no leg swelling, 2+ pulses throughout, good cap refill. Abdomen soft, nontender, nondistended, no localizing or peritonitic signs, no overlying skin changes, no CVA ttp. 4 extremities without apparent deformity or injury. GCS 15, AAOx4, able to answer questions and follow commands appropriately, moving all 4 extremities symmetrically and spontaneoulsy. Normal mood and affect. Course 2 Vital Signs: Vital signs: Vital Signs Temperature 98.1 F 05/11/25 21:42 Pulse Rate 68 05/11/25 23:01 Respiratory Rate 18 05/11/25 21:42 Blood Pressure 114/73 05/11/25 23:01 Pulse Oximetry 91 05/11/25 23:01 Oxygen Delivery Me thod Room Air 05/11/25 21:42 MDM - Chest Pain Medical Decision Making -ddx: ACS, dyshryhtmia, GERD, gastritis, esophageal stricture, PUD, URI, PNA, pericarditis, tension GALLEGOS -patient overall well appearing, with CP and GALLEGOS, extensive GI hx, nausesous but no vomiting today. will evaluate with cardiac and abdominal mcleod, provide pain control and reassess. -EKG with NSR at 78 bpm, no interval prolongtion, no ST changes. initial troponin <6, BNP mildly elevated but has been more so in the past and no clincial signs of volume overload. CXR with no effusion, cadiomegaly, PTX, infiltrates. labs with no concderning cystemic infection, severe blood cell line disturbance, severe electrolyte abnl. patient felt completely improved with nause and pain medication and was requesting to leave, with everything back but a second troponin, with a first one negative, reassuring EKG and no further episodes of CP, a HEART score of only 2, this was deemed reasonable and she was able to be discahrged and encouraged to fu outpatient with Cardiology and given strict return precautions. Lab Data 05/11/25 21:49 05/11/25 21:49 Radiology Impressions Chest X-Ray 05/11/25 21:30 IMPRESSION: 1. No acute pulmonary abnormality. Stable fine reticular opacities throughout both lungs. 2. Prominent gas-filled loop of colon noted in the upper abdominal midline. Laboratory Results WBC 10.90 10^3/uL (3.29-11.43) 05/11/25 21:49 RBC 3.99 10^6/uL (3.85-5.65) 05/11/25 21:49 Hgb 13.10 g/dL (11.27-16.99) 05/11/25 21:49 Hct 39.2 % (36-47) 05/11/25 21:49 MCV 98.2 fl (85-98) H 05/11/25 21:49 MCH 32.8 pg (27-33) 05/11/25 21:49 MCHC 33.4 g/dL (30-55) 05/11/25 21:49 RDW 12.7 % (12.1-15.1) 05/11/25 21:49 Plt Count 235 10^3/cmm (157-399) 05/11/25 21:49 MPV 9.6 fL (7.4-10.4) 05/11/25 21:49 Neut % (Auto) 60.6 % 05/11/25 21:49 Lymph % (Auto) 29.2 % 05/11/25 21:49 Schuyler % (Auto) 7.2 % 05/11/25 21:49 Eos % (Auto) 2.0 % 05/11/25 21:49 Baso % (Auto) 0.8 % 05/11/25 21:49 Neut # (Auto) 6.60 10^3/uL (1.8-7.7) 05/11/25 21:49 Lymph # (Auto) 3.2 10^3/uL (0.8-4.8) 05/11/25 21:49 Schuyler # (Auto) 0.8 10^3/uL (0.2-0.9) 05/11/25 21:49 Eos # (Auto) 0.2 10^3/uL (0.0-0.8) 05/11/25 21:49 Baso # (Auto) 0.1 10^3/uL (0.0-0.1) 05/11/25 21:49 Nucleated RBC % (auto) 0 % 05/11/25 21:49 Nucleated RBCs # 0.0 /100WBC 05/11/25 21:49 Sodium 139 mmol/L (136-145) 05/11/25 21:49 Potassium 3.7 mmol/L (3.5-5.1) 05/11/25 21:49 Chloride 104 mmol/L (98-107) 05/11/25 21:49 Carbon Dioxide 23 mmol/L (22-29) 05/11/25 21:49 Anion Gap 15.7 (5-19) 05/11/25 21:49 BUN 11 mg/dL (6-20) 05/11/25 21:49 Creatinine 0.8 mg/dL (0.5-0.9) 05/11/25 21:49 GFR Calculation 73.9 mL/min (90-130) L 05/11/25 21:49 Glucose 93 mg/dL (65-115) 05/11/25 21:49 Calculated Osmolality 287 mOsm/kg (285-295) 05/11/25 21:49 Calcium 9.8 mg/dL (8.5-10.5) 05/11/25 21:49 Phosphorus 2.7 mg/dL (2.5-4.5) 05/11/25 21:49 Magnesium 2.1 mg/dL (1.7-2.3) 05/11/25 21:49 Total Bilirubin 0.3 mg/dL (0.15-1.2) 05/11/25 21:49 AST 14 U/L (0-32) 05/11/25 21:49 ALT 12 U/L (0-33) 05/11/25 21:49 Alkaline Phosphatase 112 U/L (35-105) H 05/11/25 21:49 Troponin T Baseline < 6 ng/L (0-10) 05/11/25 21:49 C-React Prot High Sens 0.670 mg/dL (0.0-0.3) H 05/11/25 21:49 NT-Pro-B Natriuret Pep 224 pg/mL (0-125) H 05/11/25 21:49 Total Protein 6.8 g/dL (6.6-8.7) 05/11/25 21:49 Albumin 4.4 g/dL (3.5-5.2) 05/11/25 21:49 Globulin 2.4 g/dL (1.3-4.6) 05/11/25 21:49 Lipase 31 U/L (13-60) 05/11/25 21:49 All radiology interpretation(s) finalized by discharge EKG Data EKG 1: Other EKG comments: NSR at 78bpm, no axis deviation, no interval prolongation, no ST elevation or depression Clincial Decision Support The following clinical decision support tools were used to aid in care of the patient HEART Score -> History: Slightly Suspicous, EKG: Normal, Age: 45-64 yrs, Risk Factors: 1 or 2 Risk Factors, Troponin: Baseline Trop <16 ng/L. Resulting HEART Score: 2. Discharge Plan Discharge Patient Disposition: Home Clinical Impression: Headache, Stable angina Condition: Stable Prescriptions: No Action pantoprazole 40 mg tablet,delayed release (DR/EC) 40 mg PO BID (DME) SOLE Supports See Rx Instructions .Route .MEDSUPPLY Qty: 1 0RF Rx Instructions: As directed PRE-Auth prednisolone acetate 1 % drops,suspension ophthalmic (eye) fluticasone propionate [Flonase Allergy Relief] 50 mcg/actuation spray,suspension 1 spray intranasal DAILY PRN (Reason: nasal congestion) 30 Days Qty: 16 2RF Rx Instructions: administer into each nostril dicyclomine 10 mg capsule 10 mg PO BID PRN famotidine 20 mg tablet PO lubiprostone 24 mcg capsule PO albuterol sulfate 2.5 mg /3 mL (0.083 %) solution for nebulization 2.5 mg inhalation Q8H PRN (Reason: bronchospasm) 10 Days Qty: 90 0RF ([facility]) nebulizer See Rx Instructions .Route .MEDSUPPLY Qty: 1 0RF Rx Instructions: daily PRN ondansetron HCl 4 mg tablet 4 mg PO Q8H sucralfate [Carafate] 1 gram tablet 1 g PO QID lamotrigine 200 mg tablet 200 mg PO DAILY@06 Qty: 30 2RF Rx Instructions: Take one tablet by mouth every morning quetiapine 25 mg tablet See Rx Instructions PO .COMPLEX Qty: 150 2RF Rx Instructions: Take 1 tablet every AM, and 2 at bedtime; may take 1 additional tablet twice during the daytime, if needed for anxiety and agitation vortioxetine 20 mg tablet 20 mg PO .q am Qty: 30 2RF Rx Instructions: Take one tablet once daily vortioxetine 5 mg tablet 5 mg PO DAILY Qty: 30 2RF Rx Instructions: Take one tablet daily with the 20 mg dose trazodone 300 mg tablet 300 mg PO .q hs PRN (Reason: sleep) Qty: 30 2RF Rx Instructions: Take one tablet daily at bedtime, if needed for sleep prednisone 20 mg tablet 20 mg PO DAILY Qty: 15 0RF Rx Instructions: 60MG for 3 days 40MG for 2 days 20MG for 2 days nystatin 100,000 unit/gram powder 1 applic topical BID Qty: 30 0RF Rx Instructions: apply locally to B/L groin folds ([facility]) Rollator Walker See Rx Instructions .Route .MEDSUPPLY Qty: 1 0RF Rx Instructions: As directed HOME: Length of need 4 months albuterol sulfate 90 mcg/actuation HFA aerosol inhaler See Rx Instructions .ROUTE .COMPLEX Qty: 9 0RF Dose Instruction: INHALE 2 PUFFS BY MOUTH EVERY 6 HOURS NEEDED FOR SHORTNESS OF BREATH OR WHEEZING Rx Instructions: INHALE 2 PUFFS BY MOUTH EVERY 6 HOURS NEEDED FOR SHORTNESS OF BREATH OR WHEEZING cholecalciferol (vitamin D3) 1,250 mcg (50,000 unit) capsule 1,250 mcg PO .once a week 90 Days Qty: 12 0RF cyclobenzaprine 10 mg tablet 10 mg PO TID PRN (Reason: muscle spasm) Qty: 90 0RF tizanidine 4 mg tablet 4 mg PO BID PRN (Reason: muscle spasticity) Qty: 60 0RF acetaminophen 500 mg Tablet 1,000 mg PO Q6H PRN (Reason: Pain) methocarbamol 750 mg tablet 750 mg PO Q6H PRN (Reason: spasms) Qty: 20 0RF promethazine 25 mg tablet 12.5 - 25 mg PO Q6H PRN (Reason: nausea and vomiting) Qty: 10 0RF Rx Instructions: 4 doses during day; last dose no later than 4 hr before bedtime hydrocodone-acetaminophen 5-325 mg tablet 1 tab PO Q6H PRN (Reason: pain) Qty: 20 0RF Discharge Orders: Discharge ED (Routine); Ordered 05/11/25 Ordered By: Gomez Joe Referrals: Dara Tavera, OLIVE BRINE TESTER [Primary Care Provider, Family Practice] Discharge Diet: Advance as tolerated Discharge Activity: Resume usual activity Patient Instructions: Opioid Safety, Pain Management, Patient Portal & [place] Instructions Activity Restrictions/Additional Instructions: You were seen for your chest pain and headache, your evaluated with labs, an EKG and chest x-ray that were ultimately reassuring, your pain was improved with medication and you are deemed stable to be discharged home. Follow-up with your primary care physician early next week for reevaluation of your symptoms. Return to the ED with episodes of passing out, fevers, difficulties breathing, worsening chest pain, any other emergent concerns. Print Language: Guyanese Coding Level of Care Code ED Diesel Crane Operator for Chg Fwd Heart Score HEART Score Components History: Slightly Suspicous EKG: Normal Age: 45-64 yrs Risk Factors: 1 or 2 Risk Factors Troponin: Baseline Trop <16 ng/L HEART Score RESULT HEART Score: 2
[2025-05-11 22:13] LABS: Troponin(5th) Baseline < 6 ng/L (0-10)
[2025-05-11 22:32] LABS: Alanine Aminotransferase 12 U/L (0-33); Albumin Level 4.4 g/dL (3.5-5.2); Alkaline Phosphatase 112 U/L (35-105); Anion Gap 15.7 (5-19); Aspartate Amino Transferase 14 U/L (0-32); Blood Urea Nitrogen 11 mg/dL (6-20); Calcium 9.8 mg/dL (8.5-10.5); Carbon Dioxide 23 mmol/L (22-29); Chloride 104 mmol/L (98-107); Globulin 2.4 g/dL (1.3-4.6); Glucose 93 mg/dL (65-115); Lipase 31 U/L (13-60); Magnesium 2.1 mg/dL (1.7-2.3); NT Pro B Type Natriuretic Pept 224 pg/mL (0-125); Osmolality Calculated 287 mOsm/kg (285-295); Potassium 3.7 mmol/L (3.5-5.1); Sodium 139 mmol/L (136-145); Total Protein 6.8 g/dL (6.6-8.7)
[2025-05-11 22:47] LABS: CRP High Sensitivity Cardiac 0.670 mg/dL (0.0-0.3)
[2025-05-11 23:01] VITALS: BP 114/73; PULSE 68; O2SAT 91
== END 2025-05-11 23:02 | disposition home or self-care (01) ==
PROVIDERS: Physician Assistant; Emergency Provider Student in an Organized Health Care Education/Training Program; PCP Registered Nurse
DX: I20.89 Other forms of angina pectoris (principal); R51.9 Headache, unspecified; K21.9 Gastro-esophageal reflux disease without esophagitis; K29.50 Unspecified chronic gastritis without bleeding; J44.9 Chronic obstructive pulmonary disease, unspecified
CPT/HCPCS: 36415; 71045; 80053; 83690; 83735; 83880; 84100; 84484; 85025; 86141; 93005; 96374; 96375; 99285; J0780; J1171

== ENCOUNTER → 2025-05-13 07:38 | Outpatient (BNVA) | payer MEDICARE, MEDICAID, SELFPAY | PROVIDERS: PCP Registered Nurse; Visit Provider Orthopaedic Surgery | DX: M48.061 Spinal stenosis, lumbar region without neurogenic claudication (principal); M48.062 Spinal stenosis, lumbar region with neurogenic claudication; M51.362 Other intervertebral disc degeneration, lumbar region with discogenic back pain and lower extremity pain | CPT/HCPCS: 72110; 99203; 99213 ==

== ENCOUNTER 2025-05-19 18:17 | Emergency (ER) | payer MEDICARE, MEDICAID, SELFPAY ==
[2025-05-19 18:18] VITALS: BP 135/80; PULSE 86; RESP 16; TEMP 36.8; O2SAT 96; BMI 29.2
--- NOTE | 2025-05-19 18:20 | XRR_ITS ---
PROCEDURE INFORMATION: Exam: XR Chest Exam date and time: 05/19/2025 6:31 PM Age: 59 years old Clinical indication: Chest wall pain; Additional info: Chest pain TECHNIQUE: Imaging protocol: Radiologic exam of the chest. Views: 1 view. COMPARISON: CR (CHEST, ) 05/11/2025 9:52 PM FINDINGS: Lungs: Unremarkable. No consolidation. Pleural spaces: Unremarkable. No pleural effusion. No pneumothorax. Heart/Mediastinum: Unremarkable. No cardiomegaly. Bones/joints: Unremarkable. XR/XR chest 1V portable [id number] IMPRESSION: No acute findings.
--- NOTE | 2025-05-19 18:21 | ECG_ITS ---
[facility] Date[facility] 2025-05-19 Pat Name: Latesha Wilhelm Department: Room: Gender: Female Earth Auger Operator: : 1965 Requested By: [place] Order Number: [id number] Alice MD: Kenan Sidhu M.D. Measurements Intervals [place] Rate: 72 P: 63 [place]: 133 QRS: 70 QRSD: 96 T: 66 QT: 387 QTc: 424 Interpretive Statements SINUS RHYTHM POSSIBLE RIGHT VENTRICULAR CONDUCTION DELAY [RSR (QR) IN V1/V2] INTERPRETATION BASED ON A DEFAULT AGE OF 40 YEARS Compared to ECG 05/11/2025 21:42:08 No significant changes Electronically Signed On 05-20-2025 19:00:51 VACCINE KEY CUSTOMER LEADER by Kenan Sidhu M.D. [id number]
--- OUTSIDE RECORDS SUMMARY | 2025-05-19 18:38 | XMS_ITS | Encounter Summary ---
Author Organization [facility] Address [address] [place] [address] Care Team Providers Care Store Shopper Name Role Phone Dara Tavera Primary Care Provider Encounter Details Date Type Department Care Team (Late st Contact Info) Description 02/22/2005 Outpatient Historical [facility] Medicine [place] [address] [facility] [address] [place] [address] Social History Tobacco Use Types Packs/Day Years Used Date Smoking Tobacco: Never Assessed Comments Unknown Sex and Gender Information Value Date Recorded Sex Assigned at Not on file Legal Sex Female 5:22 AM HUMAN RESOURCES LEADER Gender Identity Not on file Sexual Orientation Not on file documented as of this encounter Plan of Treatment Not on file documented as of this encounter Visit Diagnoses Not on filedocumented in this encounter Additional Health Concerns Infection Onset Date Last Indicated Resolved Time VRE Comment:Urine 10/30/13 Resolved 11/04/2013 11/04/2013 8 10:33 AM HUMAN RESOURCES LEADER R/O COVID-19 12/25/2019 12/25/2019 12/26/2019 2:46 PM CDT R/O COVID-19 05/09/2020 05/09/2020 05/09/2020 12:1 7 PM HUMAN RESOURCES LEADER documented as of this encounter Care Teams Store Shopper Relationship Specialty Start Date End Date Dara Tavera FNP [address] [place] [id number] PCP - General NURSE PRACTITIONER 10/13/18 documented as of this encounter
--- OUTSIDE RECORDS SUMMARY | 2025-05-19 18:38 | XMS_ITS | Encounter Summary ---
Author Organization [facility] Address [address] [place] [address] Care Team Providers Care Animal Technician Name Role Phone Dara Tavera Primary Care Provider [phone] Encounter Details Date Type Department Care Team (Latest Contact Info) Description 12/01/2004 Outpatient Historical [facility] Medicine [place] [address] [facility] [address] [place] [address] Faiza Petersen MD NO ADDRESS ON FILE FEM PELV INFLAM DIS NOS (Primary Dx); ABDOMINAL PAIN UNSPEC SITE Social History Tobacco Use Types Packs/Day Years Used Date Smoking Tobacco: Never Assessed Comments Unknown Sex and Gender Information Value Date Recorded Sex Assigned at Not on file Legal Sex Female 5:22 AM COMPOUND MIXER Gender Identity Not on file Sexual [...] 10/30/13 Resolved 11/04/2013 11/04/2013 8 10:33 AM COMPOUND MIXER R/O COVID-19 12/25/2019 12/25/2019 12/26/2019 2:46 PM CDT R/O COVID-19 05/09/2020 05/09/2020 05/09/2020 12:1 7 PM COMPOUND MIXER documented as of this encounter Care Teams Animal Technician Relationship Specialty Start Date End Date Dara Tavera FNP [address] [place] [address] PCP - General NURSE PRACTITIONER 10/13/18 documented as of this encounter
--- OUTSIDE RECORDS SUMMARY | 2025-05-19 18:38 | XMS_ITS | Encounter Summary ---
Author Organization [facility] Address [address] [place] [address] Care Team Providers Care Bucket Turner Name Role Phone Dara Tavera Primary Care Provider [phone] Encounter Details Date Type Department Care Team (Latest Contact Info) Description 08/15/2004 Outpatient Historical [facility] [address] [place] [address] AMBULANCE, [facility] SYNCOPE AND COLLAPSE (Primary Dx) Social History Tobacco Use Types Packs/Day Years Used Date Smoking Tobacco: Never Assessed Comments Unknown Sex and Gender Information Value Date Recorded Sex Assigned at Not on file Legal Sex Female 5:22 AM GAS COLLECTION SYSTEM OPERATOR Gender Identity Not on file Sexual Orientation Not on file documented as of this encounter Plan of Treatment Not on file documented as of this encounter Visit Diagnoses Diagnosis Syncope and collapse- Primary documented in this encounter Additional Health Concerns Infection Onset Date Last Indicated Resolved Time VRE Comment:Urine 10/30/13 Resolved 11/04/2013 11/04/2013 8 10:33 AM GAS COLLECTION SYSTEM OPERATOR R/O COVID-19 12/25/2019 12/25/2019 12/26/2019 2:46 PM CDT R/O COVID-19 05/09/2020 05/09/2020 05/09/2020 12:1 7 PM GAS COLLECTION SYSTEM OPERATOR documented as of this encounter Care Teams Bucket Turner Relationship Specialty Start Date End Date Dara Tavera FNP [address] [place] [phone] PCP - General NURSE PRACTITIONER 10/13/18 documented as of this encounter
--- OUTSIDE RECORDS SUMMARY | 2025-05-19 18:38 | XMS_ITS | Encounter Summary ---
Author Organization [facility] Address [address] [place] [address] Care Team Providers Care Coal Pulverizer Operator Name Role Phone Dara Tavera [facility] Primary Care Provider [phone] Encounter Details Date Type Department Care Team (Latest Contact Info) Description 04/28/[address] [facility] [place] [address] [place] [address] Krissy Pickard FNP [address] [place], [place] [address] [address] [place] [address] LUMBAGO (Primary Dx); LUMBOSACRAL NEURITIS NOS; Enthesopathy of hip Social History Tobacco Use Types Packs/Day Years Used Date Smoking Tobacco: Never Assessed Comments Unknown Sex and Gender Information Value Date Recorded Sex Assigned at Not on file Legal Sex Female 5:22 AM ACCESS SPECIALIST Gender Identity Not on file Sexual [...] 10/30/13 Resolved 11/04/2013 11/04/2013 8 10:33 AM ACCESS SPECIALIST R/O COVID-19 12/25/2019 12/25/2019 12/26/2019 2:46 PM CDT R/O COVID-19 05/09/2020 05/09/2020 05/09/2020 12:1 7 PM ACCESS SPECIALIST documented as of this encounter Care Teams Coal Pulverizer Operator Relationship Specialty Start Date End Date Dara Tavera FNP [address] [place] [address] PCP - General NURSE PRACTITIONER 10/13/18 documented as of this encounter
--- OUTSIDE RECORDS SUMMARY | 2025-05-19 18:38 | XMS_ITS | Encounter Summary ---
Author Organization [facility] Address [address] [place] [address] Care Team Providers Care Rotary Pump Operator Name Role Phone Dara Tavera Primary Care Provider [phone] Encounter Details Date Type Department Care Team (Latest Contact Info) Description 02/24/2003 Outpatient Historical [facility] Behavioral Clinical Services [address] [place] [address] Oniel Upton MD NO ADDRESS ON FILE SCHIZOAFFECTIVE-UNSP EC ([facility]/HCC) (Primary Dx) Social History Tobacco Use Types Packs/Day Years Used Date Smoking Tobacco: Never Assessed Comments Unknown Sex and Gender Information Value Date Recorded Sex Assigned at Not on file Legal Sex Female 5:22 AM CURRENCY MACHINE OPERATOR Gender Identity Not on file Sexual Orientation Not on file documented as of this encounter Plan of Treatment Not on file documented as of this encounter Visit Diagnoses Diagnosis Schizoaffective disorder, unspecified condition ([facility]/HCC)- Primary Schizoaffective disorder, unspecified condition documented in this encounter Additional Health Concerns Infection Onset Date Last Indicated Resolved Time VRE Comment:Urine 10/30/13 Resolved 11/04/2013 11/04/2013 8 10:33 AM CURRENCY MACHINE OPERATOR R/O COVID-19 12/25/2019 12/25/2019 12/26/2019 2:46 PM CDT R/O COVID-19 05/09/2020 05/09/2020 05/09/2020 12:1 7 PM CURRENCY MACHINE OPERATOR documented as of this encounter Care Teams Rotary Pump Operator Relationship Specialty Start Date End Date Dara Tavera FNP [address] [place] [phone] PCP - General NURSE PRACTITIONER 10/13/18 documented as of this encounter
--- OUTSIDE RECORDS SUMMARY | 2025-05-19 18:38 | XMS_ITS | Encounter Summary ---
Author Organization [facility] Address [address] [place] [address] Care Team Providers Care Meter And Service Line Inspector Name Role Phone Dara Tavera Primary Care Provider [phone] Encounter Details Date Type Department Care Team (Latest Contact Info) Description 05/28/2003 Outpatient [facility] Behavioral Clinical Services [address] [place] [address] Oniel Upton MD NO ADDRESS ON FILE SCHIZOAFFECTIVE-UNSP EC ([facility]/HCC) (Primary Dx) Social History Tobacco Use Types Packs/Day Years Used Date Smoking Tobacco: Never Assessed Comments Unknown Sex and Gender Information Value Date Recorded Sex Assigned at Not on file Legal Sex Female 5:22 AM NETWORK SYSTEMS ADMINISTRATOR Gender Identity Not on file Sexual Orientation Not on file documented as of this encounter Plan of Treatment Not on file documented as of this encounter Visit Diagnoses Diagnosis Schizoaffective disorder, unspecified condition ([facility]/HCC)- Primary Schizoaffective disorder, unspecified condition documented in this encounter Additional Health Concerns Infection Onset Date Last Indicated Resolved Time VRE Comment:Urine 10/30/13 Resolved 11/04/2013 11/04/2013 8 10:33 AM NETWORK SYSTEMS ADMINISTRATOR R/O COVID-19 12/25/2019 12/25/2019 12/26/2019 2:46 PM CDT R/O COVID-19 05/09/2020 05/09/2020 05/09/2020 12:1 7 PM NETWORK SYSTEMS ADMINISTRATOR documented as of this encounter Care Teams Meter And Service Line Inspector Relationship Specialty Start Date End Date Dara Tavera FNP [address] [place] [address] PCP - General NURSE PRACTITIONER 10/13/18 documented as of this encounter
--- OUTSIDE RECORDS SUMMARY | 2025-05-19 18:38 | XMS_ITS | Encounter Summary ---
Author Organization [facility] Address [address] [place] [address] Care Team Providers Care Media Associate Name Role Phone Dara Tavera GAS METER CHECKER Primary Care Provider Reason for Referral * Outpatient Services (Routine) - Closed Specialty Diagnoses / Procedures Referred By Contac t Referred To Contact Radiology Diagnoses Chest pain, unspecified chest pain type SOB (shortness of breath) on exertion Procedures ECHO STRESS W CONTRAST EXER W DOPP AND COLOR FL ECHO STRESS TEST EXERCISE W DOPP AND COLOR FLOW Jorge Taylor MD [facility] [place] [address] [place] [address] Phone: tel: fax: Referral ID Status Reason Start Date Expiration Date V isits Requested Visits Authorized [id number] Closed [facility] TO SCHEDULE (SGF) 10/05/2015 11/04/2016 1 1 Encounter Details Date Type Department Care Team (Latest Contact Info) Description 10/05/2015 Ancillary Orders [facility] Pulmonology [facility] [address] [place] [address] Jorge Taylor MD NO ADDRESS [...] file Legal Sex Female 5:22 AM FAMILY NURSE Gender Identity Not on file Sexual [...] INTERFACE SYSTEM - 10/05/2015 12:22 PM CDT [facility] Echocardiography-[address] [place] [address] Stress Echocardiography Rafy protocol Patient: Choco Study ECHO STRESS Latesha Solis ID: TEST Gender: Jaye : 1965 Age: 49 Room: Study 10/05/2015 Pt Outpatient Date: Status: Study 11:[address] [facility] #: [id number] Time: Ordering:Jorge Taylor Interpreting:Stephen Alberts MD Tack Puller Machine: Rosario Cam [facility] Indications and History: Chest Pain, unspecified. Risk [...] peak heart rate and blood pressure was 25144hz Hg/min. Functional capacity was decreased (greater than [...] peak heart rate and blood pressure was 94291jh Hg/min. Functional capacity was decreased (greater than [...] (*) waterman values outside specified normal range. [facility] Labs are accredited with the Intersocietal Accreditation Commission - Echocardiography. Prepared and Electronically Authenticated Stephen Alberts MD Confirmed 10/05/2015 12:22 Procedure Note Stephen Alberts MD - 10/05/2015 [facility] Echocardiography-[place] [address] [place] [address] [place] [address] Stress Echocardiography Rafy protocol Patient: Choco Study ECHO STRESS Latesha Solis ID: TEST Gender: F : 1965 Age: 49 Room: Study 10/05/2015 Pt Outpatient Date: Status: Study 11:16 AM [facility] #: [id number] Time: Ordering:Jorge Taylor Interpreting:Stephen Alberts MD Tack Puller Machine: Rosario Cam [facility] Indications and History: Chest Pain, unspecified. Risk [...] peak heart rate and blood pressure was 23648gv Hg/min. Functional capacity was decreased (greater than [...] peak heart rate and blood pressure was 08301qj Hg/min. Functional capacity was decreased (greater than [...] (*) waterman values outside specified normal range. [facility] are accredited with [...] Resolved 11/04/2013 11/04/2013 8 10:33 AM FAMILY NURSE R/O COVID-19 12/25/2019 12/25/2019 12/26/2019 2:46 PM CDT R/O COVID-19 05/09/2020 05/09/2020 05/09/2020 12:1 7 PM FAMILY NURSE documented as of this encounter Care Teams Media Associate Relationship Specialty Start Date End Date Dara Tavera FNP [address] [place] [address] PCP - General NURSE PRACTITIONER 10/13/18 documented as of this encounter
--- OUTSIDE RECORDS SUMMARY | 2025-05-19 18:38 | XMS_ITS | Encounter Summary ---
Author Organization [facility] Address [address] [place] [address] Care Team Providers Care Equipment Lead Name Role Phone Dara Tavera Primary Care Provider Encounter Details Date Type Department Care Team (Latest Contact Info) Description 05/16/2005 Outpatient Historical [facility]- [place] [address] [place] [address] Prasad Carpenter MD NO ADDRESS ON FILE DISORDERS OF SACRUM (Primary Dx); [place] Social History Tobacco Use Types Packs/Day Years Used Date Smoking Tobacco: Never Assessed Comments Unknown Sex and Gender Information Value Date Recorded Sex Assigned at Not on file Legal Sex Female 5:22 AM FOREST FIRE SPECIALIST SUPERVISOR Gender Identity Not on file Sexual Orientation Not on file documented as of this encounter Plan of Treatment Not on file documented as of this encounter Visit Diagnoses Diagnosis Disorders of sacrum- Primary Lumbago documented in this encounter Additional Health Concerns Infection Onset Date Last Indicated Resolved Time VRE Comment:Urine 10/30/13 Resolved 11/04/2013 11/04/2013 8 10:33 AM FOREST FIRE SPECIALIST SUPERVISOR R/O COVID-19 12/25/2019 12/25/2019 12/26/2019 2:46 PM CDT R/O COVID-19 05/09/2020 05/09/2020 05/09/2020 12:1 7 PM FOREST FIRE SPECIALIST SUPERVISOR documented as of this encounter Care Teams Equipment Lead Relationship Specialty Start Date End Date Dara Tavera FNP [address] [place] [address] PCP - General NURSE PRACTITIONER 10/13/18 documented as of this encounter
--- OUTSIDE RECORDS SUMMARY | 2025-05-19 18:38 | XMS_ITS | Encounter Summary ---
Author Organization [facility] Address [address] [place] [address] Care Team Providers Care Validation Analyst Name Role Phone Dara Tavera Primary Care Provider Encounter Details Date Type Department Care Team (Late st Contact Info) Description 01/04/2004 Outpatient Historical [facility] Behavioral Clinical Services [address] [place] [address] Hood Kerr Jr., MD [address] [place] [address] Social History Tobacco Use Types Packs/Day Years Used Date Smoking Tobacco: Never Assessed Comments Unknown Sex and Gender Information Value Date Recorded Sex Assigned at Not on file Legal Sex Female 5:22 AM SCALE SHOOTER Gender Identity Not on file Sexual Orientation Not on file documented as of this encounter Plan of Treatment Not on file documented as of this encounter Visit Diagnoses Not on filedocumented in this encounter Additional Health Concerns Infection Onset Date Last Indicated Resolved Time VRE Comment:Urine 10/30/13 Resolved 11/04/2013 11/04/2013 8 10:33 AM SCALE SHOOTER R/O COVID-19 12/25/2019 12/25/2019 12/26/2019 2:46 PM CDT R/O COVID-19 05/09/2020 05/09/2020 05/09/2020 12:1 7 PM SCALE SHOOTER documented as of this encounter Care Teams Validation Analyst Relationship Specialty Start Date End Date Dara Tavera FNP [address] [place] [phone] PCP - General NURSE PRACTITIONER 10/13/18 documented as of this encounter
--- OUTSIDE RECORDS SUMMARY | 2025-05-19 18:38 | XMS_ITS | Encounter Summary ---
Author Organization [facility] Address [address] [place] [address] Care Team Providers Care Medical Assembler Name Role Phone Dara Tavera Primary Care Provider Encounter Details Date Type Department Care Team (Latest Contact Info) Description 07/24/[address] [facility] [address] [place] [address] AMBULANCE, [facility] OTHER ALTERATION OF CONSCIOUSNESS (Primary Dx) Social History Tobacco Use Types Packs/Day Years Used Date Smoking Tobacco: Never Assessed Comments Unknown Sex and Gender Information Value Date Recorded Sex Assigned at Not on file Legal Sex Female 5:22 AM VAMP PRESSER Gender Identity Not on file Sexual Orientation Not on file documented as of this encounter Plan of Treatment Not on file documented as of this encounter Visit Diagnoses Diagnosis Other alteration of consciousness- Primary documented in this encounter Additional Health Concerns Infection Onset Date Last Indicated Resolved Time VRE Comment:Urine 10/30/13 Resolved 11/04/2013 11/04/2013 8 10:33 AM VAMP PRESSER R/O COVID-19 12/25/2019 12/25/2019 12/26/2019 2:46 PM CDT R/O COVID-19 05/09/2020 05/09/2020 05/09/2020 12:1 7 PM VAMP PRESSER documented as of this encounter Care Teams Medical Assembler Relationship Specialty Start Date End Date Dara Tavera FNP [address] [place] [address] PCP - General NURSE PRACTITIONER 10/13/18 documented as of this encounter
--- OUTSIDE RECORDS SUMMARY | 2025-05-19 18:38 | XMS_ITS | Encounter Summary ---
Author Organization [facility] Address [address] [place] [address] Care Team Providers Care Rehabilitation Case Coordinator Name Role Phone Dara Tavera Primary Care Provider [phone] Encounter Details Date Type Department Care Team (Latest Contact Info) Description 10/22/2004 Outpatient Historical [facility] Medicine [place] [address] [facility] [address] [place] [address] Ryan Don NP NO ADDRESS ON FILE LUMP OR MASS IN BREAST (Primary Dx) Social History Tobacco Use Types Packs/Day Years Used Date Smoking Tobacco: Never Assessed Comments Unknown Sex and Gender Information Value Date Recorded Sex Assigned at Not on file Legal Sex Female 5:22 AM MOVEMAN Gender Identity Not on file Sexual Orientation Not on file documented as of this encounter Plan of Treatment Not on file documented as of this encounter Visit Diagnoses Diagnosis Lump or mass in breast- Primary documented in this encounter Additional Health Concerns Infection Onset Date Last Indicated Resolved Time VRE Comment:Urine 10/30/13 Resolved 11/04/2013 11/04/2013 8 10:33 AM MOVEMAN R/O COVID-19 12/25/2019 12/25/2019 12/26/2019 2:46 PM CDT R/O COVID-19 05/09/2020 05/09/2020 05/09/2020 12:1 7 PM MOVEMAN documented as of this encounter Care Teams Rehabilitation Case Coordinator Relationship Specialty Start Date End Date Dara Tavera FNP [address] [place] [address] PCP - General NURSE PRACTITIONER 10/13/18 documented as of this encounter
--- OUTSIDE RECORDS SUMMARY | 2025-05-19 18:38 | XMS_ITS | Encounter Summary ---
Author Organization [facility] Address [address] [place] [address] Care Team Providers Care Sales Team Member Name Role Phone Dara Tavera Primary Care Provider Encounter Details Date Type Department Care Team (Latest Contact Info) Description 07/24/2003 Outpatient Historical [facility], [facility] (Primary Dx) Social History Tobacco Use Types Packs/Day Years Used Date Smoking Tobacco: Never Assessed Comments Unknown Sex and Gender Information Value Date Recorded Sex Assigned at Not on file Legal Sex Female 5:22 AM STUDENT TEACHING COORDINATOR Gender Identity Not on file Sexual [...] Resolved 11/04/2013 11/04/2013 8 10:33 AM STUDENT TEACHING COORDINATOR R/O COVID-19 12/25/2019 12/25/2019 12/26/2019 2:46 PM CDT R/O COVID-19 05/09/2020 05/09/2020 05/09/2020 12:1 7 PM STUDENT TEACHING COORDINATOR documented as of this encounter Care Teams Sales Team Member Relationship Specialty Start Date End Date Dara Tavera FNP [address] [place] [address] PCP - General NURSE PRACTITIONER 10/13/18 documented as of this encounter
--- OUTSIDE RECORDS SUMMARY | 2025-05-19 18:38 | XMS_ITS | Encounter Summary ---
Author Organization [facility] Address [address] [place] [address] Care Team Providers Care Director Of Marketing Operations Name Role Phone Dara Tavera Primary Care Provider Encounter Details Date Type Department Care Team (Latest Contact Info) Description 07/28/2003 Outpatient Historical [facility] PreAdmission [id number] [place] [address] Hossein Blair MD NO ADDRESS ON FILE PREOP EXAM OTHER SPECIFIED (Primary Dx) Social History Tobacco Use Types Packs/Day Years Used Date Smoking Tobacco: Never Assessed Comments Unknown Sex and Gender Information Value Date Recorded Sex Assigned at Not on file Legal Sex Female 5:22 AM AUDITING MANAGER Gender Identity Not on file Sexual Orientation Not on file documented as of this encounter Plan of Treatment Not on file documented as of this encounter Visit Diagnoses Diagnosis Other specified pre-operative examination- Primary documented in this encounter Additional Health Concerns Infection Onset Date Last Indicated Resolved Time VRE Comment:Urine 10/30/13 Resolved 11/04/2013 11/04/2013 8 10:33 AM AUDITING MANAGER R/O COVID-19 12/25/2019 12/25/2019 12/26/2019 2:46 PM CDT R/O COVID-19 05/09/2020 05/09/2020 05/09/2020 12:1 7 PM AUDITING MANAGER documented as of this encounter Care Teams Director Of Marketing Operations Relationship Specialty Start Date End Date Dara Tavera FNP [address] [place] [address] PCP - General NURSE PRACTITIONER 10/13/18 documented as of this encounter
--- OUTSIDE RECORDS SUMMARY | 2025-05-19 18:38 | XMS_ITS | Encounter Summary ---
Author Organization [facility] Address [address] [place] [address] Care Team Providers Care Tail Board Worker Name Role Phone Dara Tavera VETERINARY MEAT INSPECTOR Primary Care Provider Encounter Details Date Type Department Care Team (Latest Contact Info) Description 07/29/2003 Outpatient Historical [facility] Behavioral Clinical Services [address] [place] [address] Hood Kerr Jr., MD [address] [place] [address] SCHIZOAFFECTIVE-UNSP EC (CMS/HCC) (Primary Dx) Social History Tobacco Use Types Packs/Day Years Used Date Smoking Tobacco: Never Assessed Comments Unknown Sex and Gender Information Value Date Recorded Sex Assigned at Not on file Legal Sex Female 5:22 AM HAZARDOUS WASTE TECHNICIAN Gender Identity Not on file Sexual Orientation Not on file documented as of this encounter Plan of Treatment Not on file documented as of this encounter Visit Diagnoses Diagnosis Schizoaffective disorder, unspecified condition (CMS/HCC)- Primary Schizoaffective disorder, unspecified condition documented in this encounter Additional Health Concerns Infection Onset Date Last Indicated Resolved Time VRE Comment:Urine 10/30/13 Resolved 11/04/2013 11/04/2013 8 10:33 AM HAZARDOUS WASTE TECHNICIAN R/O COVID-19 12/25/2019 12/25/2019 12/26/2019 2:46 PM CDT R/O COVID-19 05/09/2020 05/09/2020 05/09/2020 12:1 7 PM HAZARDOUS WASTE TECHNICIAN documented as of this encounter Care Teams Tail Board Worker Relationship Specialty Start Date End Date Dara Tavera FNP [address] [place] [phone] PCP - General NURSE PRACTITIONER 10/13/18 documented as of this encounter
--- OUTSIDE RECORDS SUMMARY | 2025-05-19 18:38 | XMS_ITS | Encounter Summary ---
Author Organization [facility] Address [address] [place] [address] Care Team Providers Care Card Runner Name Role Phone Dara Tavera Primary Care Provider Encounter Details Date Type Department Care Team (Late st Contact Info) Description 11/04/2003 Outpatient Historical [facility] Behavioral Clinical Services [address] [place] [address] Hood Kerr Jr., MD [address] [place] [address] Social History Tobacco Use Types Packs/Day Years Used Date Smoking Tobacco: Never Assessed Comments Unknown Sex and Gender Information Value Date Recorded Sex Assigned at Not on file Legal Sex Female 5:22 AM SENSOR OPERATOR Gender Identity Not on file Sexual Orientation Not on file documented as of this encounter Plan of Treatment Not on file documented as of this encounter Visit Diagnoses Not on filedocumented in this encounter Additional Health Concerns Infection Onset Date Last Indicated Resolved Time VRE Comment:Urine 10/30/13 Resolved 11/04/2013 11/04/2013 8 10:33 AM SENSOR OPERATOR R/O COVID-19 12/25/2019 12/25/2019 12/26/2019 2:46 PM CDT R/O COVID-19 05/09/2020 05/09/2020 05/09/2020 12:1 7 PM SENSOR OPERATOR documented as of this encounter Care Teams Card Runner Relationship Specialty Start Date End Date Dara Tavera FNP [address] [place] [address] PCP - General NURSE PRACTITIONER 10/13/18 documented as of this encounter
--- OUTSIDE RECORDS SUMMARY | 2025-05-19 18:38 | XMS_ITS | Encounter Summary ---
Author Organization [facility] Address [address] [place] [address] Care Team Providers Care Dance Historian Name Role Phone Dara Tavera CAN CAPPER Primary Care Provider Encounter Details Date Type Department Care Team (Latest Contact Info) Description 11/03/2003 Outpatient Historical [facility] Behavioral Clinical Services [address] [place] [address] Hood Kerr Jr., MD [address] [place] [address] SCHIZOAFFECTIVE-UNSP EC (CMS/HCC) (Primary Dx) Social History Tobacco Use Types Packs/Day Years Used Date Smoking Tobacco: Never Assessed Comments Unknown Sex and Gender Information Value Date Recorded Sex Assigned at Not on file Legal Sex Female 5:22 AM INJECTION MOULDING MACHINE OPERATOR Gender Identity Not on file [...] 10/30/13 Resolved 11/04/2013 11/04/2013 8 10:33 AM INJECTION MOULDING MACHINE OPERATOR R/O COVID-19 12/25/2019 12/25/2019 12/26/2019 2:46 PM CDT R/O COVID-19 05/09/2020 05/09/2020 05/09/2020 12:1 7 PM INJECTION MOULDING MACHINE OPERATOR documented as of this encounter Care Teams Dance Historian Relationship Specialty Start Date End Date Dara Tavera FNP [address] [place] [address] PCP - General NURSE PRACTITIONER 10/13/18 documented as of this encounter
--- OUTSIDE RECORDS SUMMARY | 2025-05-19 18:38 | XMS_ITS | Encounter Summary ---
Author Organization [facility] Address [address] [place] [address] Care Team Providers Care Make Ready Worker Name Role Phone Dara Tavera Primary Care Provider Encounter Details Date Type Department Care Team (Latest Contact Info) Description 03/27/2003 Outpatient Historical [facility] Behavioral Clinical Services [address] [place] [address] Oniel Upton MD NO ADDRESS ON FILE SCHIZOAFFECTIVE-UNSP EC ([facility]/HCC) (Primary Dx) Social History Tobacco Use Types Packs/Day Years Used Date Smoking Tobacco: Never Assessed Comments Unknown Sex and Gender Information Value Date Recorded Sex Assigned at Not on file Legal Sex Female 5:22 AM COLLECTION SPECIALIST Gender Identity Not on file Sexual Orientation Not on file documented as of this encounter Plan of Treatment Not on file documented as of this encounter Visit Diagnoses Diagnosis Schizoaffective disorder, unspecified condition ([facility]/HCC)- Primary Schizoaffective disorder, unspecified condition documented in this encounter Additional Health Concerns Infection Onset Date Last Indicated Resolved Time VRE Comment:Urine 10/30/13 Resolved 11/04/2013 11/04/2013 8 10:33 AM COLLECTION SPECIALIST R/O COVID-19 12/25/2019 12/25/2019 12/26/2019 2:46 PM CDT R/O COVID-19 05/09/2020 05/09/2020 05/09/2020 12:1 7 PM COLLECTION SPECIALIST documented as of this encounter Care Teams Make Ready Worker Relationship Specialty Start Date End Date Dara Tavera FNP [address] [place] [phone] PCP - General NURSE PRACTITIONER 10/13/18 documented as of this encounter
--- OUTSIDE RECORDS SUMMARY | 2025-05-19 18:38 | XMS_ITS | Encounter Summary ---
Author Organization [facility] Address [address] [place] [address] Care Team Providers Care Patented Hogshead Assembler Name Role Phone Dara Tavera SEARCH ENGINE OPTIMIZER Primary Care Provider Encounter Details Date Type Department Care Team (Latest Contact Info) Description 11/05/2002 Outpatient [facility] [address] [place] [address] Raúl Osullivan MD [address] [place], [place] [address] OTHER FUNCTIONAL DISORDER BLADDER (Primary Dx) Social History Tobacco Use Types Packs/Day Years Used Date Smoking Tobacco: Never Assessed Comments Unknown Sex and Gender Information Value Date Recorded Sex Assigned at Not on file Legal Sex Female 5:22 AM FLOOR SCRAPER Gender Identity Not on file Sexual Orientation Not on file documented as of this encounter Plan of Treatment Not on file documented as of this encounter Visit Diagnoses Diagnosis Other functional disorder of bladder- Primary documented in this encounter Additional Health Concerns Infection Onset Date Last Indicated Resolved Time VRE Comment:Urine 10/30/13 Resolved 11/04/2013 11/04/2013 8 10:33 AM FLOOR SCRAPER R/O COVID-19 12/25/2019 12/25/2019 12/26/2019 2:46 PM CDT R/O COVID-19 05/09/2020 05/09/2020 05/09/2020 12:1 7 PM FLOOR SCRAPER documented as of this encounter Care Teams Patented Hogshead Assembler Relationship Specialty Start Date End Date Dara Tavera FNP [address] [place] [phone] PCP - General NURSE PRACTITIONER 10/13/18 documented as of this encounter
--- OUTSIDE RECORDS SUMMARY | 2025-05-19 18:38 | XMS_ITS | Encounter Summary ---
Author Organization [facility] Address [address] [place] [address] Care Team Providers Care Cad Application Support Specialist Name Role Phone Dara Tavera Primary Care Provider Encounter Details Date Type Department Care Team (Latest Contact Info) Description 01/14/2005 Outpatient Historical [facility] [address] [place] [id number] Faiza Petersen MD NO ADDRESS ON FILE LUMBAGO (Primary Dx); NEURALGIA/NEURITIS NOS Social History Tobacco Use Types Packs/Day Years Used Date Smoking Tobacco: Never Assessed Comments Unknown Sex and Gender Information Value Date Recorded Sex Assigned at Not on file Legal Sex Female 5:22 AM MANAGER WEALTH MANAGEMENT Gender Identity Not on file Sexual Orientation Not on file documented as of this encounter Plan of Treatment Not on file documented as of this encounter Visit Diagnoses Diagnosis Lumbago- Primary Neuralgia, neuritis, and radiculitis, unspecified documented in this encounter Additional Health Concerns Infection Onset Date Last Indicated Resolved Time VRE Comment:Urine 10/30/13 Resolved 11/04/2013 11/04/2013 8 10:33 AM MANAGER WEALTH MANAGEMENT R/O COVID-19 12/25/2019 12/25/2019 12/26/2019 2:46 PM CDT R/O COVID-19 05/09/2020 05/09/2020 05/09/2020 12:1 7 PM MANAGER WEALTH MANAGEMENT documented as of this encounter Care Teams Cad Application Support Specialist Relationship Specialty Start Date End Date Dara Tavera FNP [address] [place] [phone] PCP - General NURSE PRACTITIONER 10/13/18 documented as of this encounter
--- OUTSIDE RECORDS SUMMARY | 2025-05-19 18:38 | XMS_ITS | Encounter Summary ---
Author Organization [facility] Address [address] [place] [address] Care Team Providers Care Nanny Babysitter Name Role Phone Dara Tavera Primary Care Provider Encounter Details Date Type Department Care Team (Latest Contact Info) Description 05/16/2005 Outpatient Historical [facility] Pain Management Procedures [address] [place] [address] Prasad Carpenter MD NO ADDRESS ON FILE DISORDERS OF SACRUM (Primary Dx) Social History Tobacco Use Types Packs/Day Years Used Date Smoking Tobacco: Never Assessed Comments Unknown Sex and Gender Information Value Date Recorded Sex Assigned at Not on file Legal Sex Female 5:22 AM FILLER SPREADER Gender Identity Not on file Sexual Orientation Not on file documented as of this encounter Plan of Treatment Not on file documented as of this encounter Visit Diagnoses Diagnosis Disorders of sacrum- Primary documented in this encounter Additional Health Concerns Infection Onset Date Last Indicated Resolved Time VRE Comment:Urine 10/30/13 Resolved 11/04/2013 11/04/2013 8 10:33 AM FILLER SPREADER R/O COVID-19 12/25/2019 12/25/2019 12/26/2019 2:46 PM CDT R/O COVID-19 05/09/2020 05/09/2020 05/09/2020 12:1 7 PM FILLER SPREADER documented as of this encounter Care Teams Nanny Babysitter Relationship Specialty Start Date End Date Dara Tavera FNP [address] [place] [address] PCP - General NURSE PRACTITIONER 10/13/18 documented as of this encounter
--- OUTSIDE RECORDS SUMMARY | 2025-05-19 18:38 | XMS_ITS | Encounter Summary ---
Author Organization [facility] Address [address] [place] [address] Care Team Providers Care Metal Off Bearer Name Role Phone Dara Tavera Primary Care Provider Encounter Details Date Type Department Care Team (Latest Contact Info) Description 11/25/2004 Outpatient Historical [facility] Amb[facility] [address] [place] [address] AMBULANCE, [facility] NONPSYCHOTIC MENTAL DISORDER NOS (Primary Dx) Social History Tobacco Use Types Packs/Day Years Used Date Smoking Tobacco: Never Assessed Comments Unknown Sex and Gender Information Value Date Recorded Sex Assigned at Not on file Legal Sex Female 5:22 AM SETTLEMENT PROCESSOR Gender Identity Not on file Sexual Orientation Not on file documented as of this encounter Plan of Treatment Not on file documented as of this encounter Visit Diagnoses Diagnosis Unspecified nonpsychotic mental disorder- Primary documented in this encounter Additional Health Concerns Infection Onset Date Last Indicated Resolved Time VRE Comment:Urine 10/30/13 Resolved 11/04/2013 11/04/2013 8 10:33 AM SETTLEMENT PROCESSOR R/O COVID-19 12/25/2019 12/25/2019 12/26/2019 2:46 PM CDT R/O COVID-19 05/09/2020 05/09/2020 05/09/2020 12:1 7 PM SETTLEMENT PROCESSOR documented as of this encounter Care Teams Metal Off Bearer Relationship Specialty Start Date End Date Dara Tavera FNP [address] [place] [phone] PCP - General NURSE PRACTITIONER 10/13/18 documented as of this encounter
--- OUTSIDE RECORDS SUMMARY | 2025-05-19 18:38 | XMS_ITS | Encounter Summary ---
Author Organization [facility] Address [address] [place] [address] Care Team Providers Care Administrative Library Assistant Name Role Phone Dara Tavera Primary Care Provider [phone] Encounter Details Date Type Department Care Team (Latest Contact Info) Description 07/17/2003 Outpatient Historical [facility] Urology- [address]tr[address], 3rd [place] [address] Hossein Blair MD NO ADDRESS ON FILE URGE & STRESS MIXED INCONTINENCE (Primary Dx); FB bladder/urethra Social History Tobacco Use Types Packs/Day Years Used Date Smoking Tobacco: Never Assessed Comments Unknown Sex and Gender Information Value Date Recorded Sex Assigned at Not on file Legal Sex Female 5:22 AM CONTACT CENTER ASSISTANT Gender Identity Not on file Sexual [...] 10/30/13 Resolved 11/04/2013 11/04/2013 8 10:33 AM CONTACT CENTER ASSISTANT R/O COVID-19 12/25/2019 12/25/2019 12/26/2019 2:46 PM CDT R/O COVID-19 05/09/2020 05/09/2020 05/09/2020 12:1 7 PM CONTACT CENTER ASSISTANT documented as of this encounter Care Teams Administrative Library Assistant Relationship Specialty Start Date End Date Dara Tavera FNP [address] [place] [phone] PCP - General NURSE PRACTITIONER 10/13/18 documented as of this encounter
--- OUTSIDE RECORDS SUMMARY | 2025-05-19 18:38 | XMS_ITS | Encounter Summary ---
Author Organization [facility] Address [address] [place] [address] Care Team Providers Care Dredge Master Name Role Phone Dara Tavera Primary Care Provider [phone] Encounter Details Date Type Department Care Team (Latest Contact Info) Description 05/20/2004 Outpatient Historical [facility] Ambulance [address] [place] [address] AMBULANCE, [facility] CONVULSIONS, OTHER (CMS/HCC) (Primary Dx) Social History Tobacco Use Types Packs/Day Years Used Date Smoking Tobacco: Never Assessed Comments Unknown Sex and Gender Information Value Date Recorded Sex Assigned at Not on file Legal Sex Female 5:22 AM PRODUCTION LAPPING MACHINE OPERATOR Gender Identity Not on file Sexual Orientation Not on file documented as of this encounter Plan of Treatment Not on file documented as of this encounter Visit Diagnoses Diagnosis Other convulsions- Primary documented in this encounter Additional Health Concerns Infection Onset Date Last Indicated Resolved Time VRE Comment:Urine 10/30/13 Resolved 11/04/2013 11/04/2013 8 10:33 AM PRODUCTION LAPPING MACHINE OPERATOR R/O COVID-19 12/25/2019 12/25/2019 12/26/2019 2:46 PM CDT R/O COVID-19 05/09/2020 05/09/2020 05/09/2020 12:1 7 PM PRODUCTION LAPPING MACHINE OPERATOR documented as of this encounter Care Teams Dredge Master Relationship Specialty Start Date End Date Dara Tavera FNP [address] [place] [phone] PCP - General NURSE PRACTITIONER 10/13/18 documented as of this encounter
--- OUTSIDE RECORDS SUMMARY | 2025-05-19 18:38 | XMS_ITS | Encounter Summary ---
Author Organization [facility] Address [address] [place] [address] Care Team Providers Care Licensed Embalmer Supervisor Name Role Phone Dara Tavera Primary Care Provider Encounter Details Date Type Department Care Team (Late st Contact Info) Description 07/16/2003 Outpatient [facility] Imaging and Laboratory Services [address] [place] [address] Hossein Blair MD NO ADDRESS ON FILE BLADDER DISORDER NEC (Primary Dx) Social History Tobacco Use Types Packs/Day Years Used Date Smoking Tobacco: Never Assessed Comments Unknown Sex and Gender Information Value Date Recorded Sex Assigned at Not on file Legal Sex Female 5:22 AM MANAGER DOCUMENT CONTROL Gender Identity Not on file Sexual Orientation Not on file documented as of this encounter Plan of Treatment Not on file documented as of this encounter Visit Diagnoses Diagnosis Other specified disorder of bladder- Primary documented in this encounter Additional Health Concerns Infection Onset Date Last Indicated Resolved Time VRE Comment:Urine 10/30/13 Resolved 11/04/2013 11/04/2013 8 10:33 AM MANAGER DOCUMENT CONTROL R/O COVID-19 12/25/2019 12/25/2019 12/26/2019 2:46 PM CDT R/O COVID-19 05/09/2020 05/09/2020 05/09/2020 12:1 7 PM MANAGER DOCUMENT CONTROL documented as of this encounter Care Teams Licensed Embalmer Supervisor Relationship Specialty Start Date End Date Dara Tavera FNP [address] [place] [address] PCP - General NURSE PRACTITIONER 10/13/18 documented as of this encounter
--- OUTSIDE RECORDS SUMMARY | 2025-05-19 18:38 | XMS_ITS | Encounter Summary ---
Author Organization [facility] Address [address] [place] [address] Care Team Providers Care Building Maintenance Superintendent Name Role Phone Dara Tavera AMANDEEP Primary Care Provider Encounter Details Date Type Department Care Team (Latest Contact Info) Description 02/24/2005 Outpatient Historical [facility] Pain Management- [place] [address] [place] [address] Prasad Carpenter MD NO ADDRESS ON FILE OTHER BACK SYMPTOMS (Primary Dx); LUMB/LUMBOSAC DISC DEGEN; LUMBAGO; Lumbosacral spondylosis Social History Tobacco Use Types Packs/Day Years Used Date Smoking Tobacco: Never Assessed Comments Unknown Sex and Gender Information Value Date Recorded Sex Assigned at Not on file Legal Sex Female 5:22 AM WELDER APPRENTICE GAS Gender Identity Not on file Sexual Orientation [...] Resolved 11/04/2013 11/04/2013 8 10:33 AM WELDER APPRENTICE GAS R/O COVID-19 12/25/2019 12/25/2019 12/26/2019 2:46 PM CDT R/O COVID-19 05/09/2020 05/09/2020 05/09/2020 12:1 7 PM WELDER APPRENTICE GAS documented as of this encounter Care Teams Building Maintenance Superintendent Relationship Specialty Start Date End Date Dara Tavera FNP [address] [place] [phone] PCP - General NURSE PRACTITIONER 10/13/18 documented as of this encounter
--- OUTSIDE RECORDS SUMMARY | 2025-05-19 18:38 | XMS_ITS | Encounter Summary ---
Author Organization [facility] Address [address] [place] [address] Care Team Providers Care Hydraulic Rubbish Compactor Mechanic Name Role Phone Dara Tavera Primary Care Provider Encounter Details Date Type Department Care Team (Late st Contact Info) Description [facility]/30/2005 [facility] [address] [place] [address] Social History Tobacco Use Types Packs/Day Years Used Date Smoking Tobacco: Never Assessed Comments Unknown Sex and Gender Information Value Date Recorded Sex Assigned at Not on file Legal Sex Female 5:22 AM ARCHIVES DIRECTOR Gender Identity Not on file Sexual Orientation Not on file documented as of this encounter Plan of Treatment Not on file documented as of this encounter Visit Diagnoses Not on filedocumented in this encounter Additional Health Concerns Infection Onset Date Last Indicated Resolved Time VRE Comment:Urine 10/30/13 Resolved 11/04/2013 11/04/2013 8 10:33 AM ARCHIVES DIRECTOR R/O COVID-19 12/25/2019 12/25/2019 12/26/2019 2:46 PM CDT R/O COVID-19 05/09/2020 05/09/2020 05/09/2020 12:1 7 PM ARCHIVES DIRECTOR documented as of this encounter Care Teams Hydraulic Rubbish Compactor Mechanic Relationship Specialty Start Date End Date Dara Tavera FNP [address] [place] [phone] PCP - General NURSE PRACTITIONER 10/13/18 documented as of this encounter
--- OUTSIDE RECORDS SUMMARY | 2025-05-19 18:38 | XMS_ITS | Encounter Summary ---
Author Organization [facility] Address [address] [place] [address] Care Team Providers Care Order Management Specialist Name Role Phone Dara Tavera Primary Care Provider [phone] Encounter Details Date Type Department Care Team (Latest Contact Info) Description 04/27/2003 Outpatient Historical [facility] Behavioral Clinical Services [address] [place] [address] Oniel Upton MD NO ADDRESS ON FILE SCHIZOAFFECTIVE-UNSP EC ([facility]/HCC) (Primary Dx) Social History Tobacco Use Types Packs/Day Years Used Date Smoking Tobacco: Never Assessed Comments Unknown Sex and Gender Information Value Date Recorded Sex Assigned at Not on file Legal Sex Female 5:22 AM SHREDDING SPECIALIST Gender Identity Not on file Sexual Orientation Not on file documented as of this encounter Plan of Treatment Not on file documented as of this encounter Visit Diagnoses Diagnosis Schizoaffective disorder, unspecified condition ([facility]/HCC)- Primary Schizoaffective disorder, unspecified condition documented in this encounter Additional Health Concerns Infection Onset Date Last Indicated Resolved Time VRE Comment:Urine 10/30/13 Resolved 11/04/2013 11/04/2013 8 10:33 AM SHREDDING SPECIALIST R/O COVID-19 12/25/2019 12/25/2019 12/26/2019 2:46 PM CDT R/O COVID-19 05/09/2020 05/09/2020 05/09/2020 12:1 7 PM SHREDDING SPECIALIST documented as of this encounter Care Teams Order Management Specialist Relationship Specialty Start Date End Date Dara Tavera FNP [address] [place] [phone] PCP - General NURSE PRACTITIONER 10/13/18 documented as of this encounter
--- OUTSIDE RECORDS SUMMARY | 2025-05-19 18:38 | XMS_ITS | Encounter Summary ---
Author Organization [facility] Address [address] [place] [address] Care Team Providers Care Expansion Envelope Maker Hand Name Role Phone Dara Tavera TRUCK MANAGER Primary Care Provider Encounter Details Date Type Department Care Team (Late st Contact Info) Description 10/24/2011 Ancillary Orders [place] [address] [place] [address] Raleigh Najera MD NO ADDRESS [...] on file Legal Sex Female 5:22 AM DELIVERY SALES WORKER Gender Identity Not on file Sexual [...] acute changes seen jaw - transcribed in [employer] [facility] 10/26/2011 11:18 AM CDT ATTENTION: This replaces accession number [id number]. DESCRIPTION: AP view of the pelvis 4May 2011 shows several VersaTac spiral staple postoperative artifacts in the left inguinal region. Pelvic soft tissues appear unremarkable. The bones of the pelvis appear intact. Procedure Note Andre Vega MD - 10/26/2011 ATTENTION: This replaces accession number [id number]. DESCRIPTION: AP view of the pelvis 4May 2011 shows several VersaTac spiral staple postoperative artifacts in the left inguinal region. Pelvic soft tissues appear unremarkable. The bones of the pelvis appear intact. IMPRESSION no acute changes seen jaw - transcribed in [facility] - [facility] Raleigh Najera MD DIAGNOSTIC IMAGING ORDERABLE S Final Result * XR LUMBAR SPINE 2 OR 3 VW (10/21/2011 2:05 PM CDT) Anatomical Region Laterality Modality Spine Computed Radiogr aphy Impressions 10/26/2011 11:18 AM CDT 1. mild arthritic change 2. no acute changes seen jaw - transcribed in [employer] 10/26/2011 11:18 AM CDT ATTENTION: This replaces accession number [id number]. DESCRIPTION: AP and lateral lumbar spine views [...] - 10/26/2011 ATTENTION: This replaces accession number [id number]. DESCRIPTION: AP and lateral lumbar spine views [...] 10/30/13 Resolved 11/04/2013 11/04/2013 8 10:33 AM DELIVERY SALES WORKER R/O COVID-19 12/25/2019 12/25/2019 12/26/2019 2:46 PM CDT R/O COVID-19 05/09/2020 05/09/2020 05/09/2020 12:1 7 PM DELIVERY SALES WORKER documented as of this encounter Care Teams Expansion Envelope Maker Hand Relationship Specialty Start Date End Date Dara Tavera FNP [address] [place] [address] PCP - General NURSE PRACTITIONER 10/13/18 documented as of this encounter
--- OUTSIDE RECORDS SUMMARY | 2025-05-19 18:38 | XMS_ITS | Encounter Summary ---
Author Organization [facility] Address [address] [place] [address] Care Team Providers Care Group Insurance Specialist Name Role Phone Dara Tavera Primary Care Provider Encounter Details Date Type Department Care Team (Latest Contact Info) Description 04/28/[address] [facility] [place] [address] [place] [place] [address] [place] [address] Krissy Pickard FNP [address] [facility] [address] [place] [address] ENTHESOPATHY OF HIP (Primary Dx) Social History Tobacco Use Types Packs/Day Years Used Date Smoking Tobacco: Never Assessed Comments Unknown Sex and Gender Information Value Date Recorded Sex Assigned at Not on file Legal Sex Female 5:22 AM MOTOR EQUIPMENT COMMANDING OFFICER Gender Identity Not on file Sexual Orientation Not on file documented as of this encounter Plan of Treatment Not on file documented as of this encounter Visit Diagnoses Diagnosis Enthesopathy of hip region- Primary documented in this encounter Additional Health Concerns Infection Onset Date Last Indicated Resolved Time VRE Comment:Urine 10/30/13 Resolved 11/04/2013 11/04/2013 8 10:33 AM MOTOR EQUIPMENT COMMANDING OFFICER R/O COVID-19 12/25/2019 12/25/2019 12/26/2019 2:46 PM CDT R/O COVID-19 05/09/2020 05/09/2020 05/09/2020 12:1 7 PM MOTOR EQUIPMENT COMMANDING OFFICER documented as of this encounter Care Teams Group Insurance Specialist Relationship Specialty Start Date End Date Dara Tavera FNP [address] [place] [phone] PCP - General NURSE PRACTITIONER 10/13/18 documented as of this encounter
--- OUTSIDE RECORDS SUMMARY | 2025-05-19 18:38 | XMS_ITS | Encounter Summary ---
Author Organization [facility] Address [address] [place] [address] Care Team Providers Care Hospital Administrator Name Role Phone Dara Tavera Primary Care Provider Encounter Details Date Type Department Care Team (Latest Contact Info) Description 01/25/2005 Outpatient [facility] Oral and Maxillo Surgery[address] [place] [address] Raleigh Bagley, PhD NO ADDRESS ON FILE Tooth eruption disturb (Primary Dx) Social History Tobacco Use Types Packs/Day Years Used Date Smoking Tobacco: Never Assessed Comments Unknown Sex and Gender Information Value Date Recorded Sex Assigned at Not on file Legal Sex Female 5:22 AM SAWDUST MACHINE OPERATOR Gender Identity Not on file Sexual Orientation Not on file documented as of this encounter Plan of Treatment Not on file documented as of this encounter Visit Diagnoses Diagnosis Tooth eruption disturb- Primary Disturbances in tooth eruption documented in this encounter Additional Health Concerns Infection Onset Date Last Indicated Resolved Time VRE Comment:Urine 10/30/13 Resolved 11/04/2013 11/04/2013 8 10:33 AM SAWDUST MACHINE OPERATOR R/O COVID-19 12/25/2019 12/25/2019 12/26/2019 2:46 PM CDT R/O COVID-19 05/09/2020 05/09/2020 05/09/2020 12:1 7 PM SAWDUST MACHINE OPERATOR documented as of this encounter Care Teams Hospital Administrator Relationship Specialty Start Date End Date Dara Tavera FNP [address] [place] [address] PCP - General NURSE PRACTITIONER 10/13/18 documented as of this encounter
--- OUTSIDE RECORDS SUMMARY | 2025-05-19 18:38 | XMS_ITS | Encounter Summary ---
Author Organization [facility] Address [address] [place] [address] Care Team Providers Care Diagram Clerk Name Role Phone Dara Tavera Primary Care Provider Encounter Details Date Type Department Care Team (Latest Contact Info) Description 03/07/2005 Outpatient Historical [facility] Pain Management Procedures [address] [place] [address] Prasad Carpenter MD NO ADDRESS ON FILE LUMBOSACRAL NEURITIS NOS (Primary Dx) Social History Tobacco Use Types Packs/Day Years Used Date Smoking Tobacco: Never Assessed Comments Unknown Sex and Gender Information Value Date Recorded Sex Assigned at Not on file Legal Sex Female 5:22 AM TEST DECK SUPERVISOR Gender Identity Not on file Sexual Orientation Not on file documented as of this encounter Plan of Treatment Not on file documented as of this encounter Visit Diagnoses Diagnosis Thoracic or lumbosacral neuritis or radiculitis, unspecified- Primary documented in this encounter Additional Health Concerns Infection Onset Date Last Indicated Resolved Time VRE Comment:Urine 10/30/13 Resolved 11/04/2013 11/04/2013 8 10:33 AM TEST DECK SUPERVISOR R/O COVID-19 12/25/2019 12/25/2019 12/26/2019 2:46 PM CDT R/O COVID-19 05/09/2020 05/09/2020 05/09/2020 12:1 7 PM TEST DECK SUPERVISOR documented as of this encounter Care Teams Diagram Clerk Relationship Specialty Start Date End Date Dara Tavera FNP [address] [place] [address] PCP - General NURSE PRACTITIONER 10/13/18 documented as of this encounter
--- OUTSIDE RECORDS SUMMARY | 2025-05-19 18:38 | XMS_ITS | Encounter Summary ---
Author Organization [facility] Address [address] [place] [address] Care Team Providers Care Mascara Molder Name Role Phone Dara Tavera Primary Care Provider Encounter Details Date Type Department Care Team (Latest Contact Info) Description 12/01/2003 Outpatient Historical [facility] Urology- [address], 3[address] [place] [address] Hossein Blair MD NO ADDRESS ON FILE FEMALE STRESS INCONTINENCE (Primary Dx); ENURESIS NOS Social History Tobacco Use Types Packs/Day Years Used Date Smoking Tobacco: Never Assessed Comments Unknown Sex and Gender Information Value Date Recorded Sex Assigned at Not on file Legal Sex Female 5:22 AM SPINE SUPERVISOR Gender Identity Not on file Sexual Orientation Not on file documented as of this encounter Plan of Treatment Not on file documented as of this encounter Visit Diagnoses Diagnosis Female stress incontinence- Primary Unspecified urinary incontinence documented in this encounter Additional Health Concerns Infection Onset Date Last Indicated Resolved Time VRE Comment:Urine 10/30/13 Resolved 11/04/2013 11/04/2013 8 10:33 AM SPINE SUPERVISOR R/O COVID-19 12/25/2019 12/25/2019 12/26/2019 2:46 PM CDT R/O COVID-19 05/09/2020 05/09/2020 05/09/2020 12:1 7 PM SPINE SUPERVISOR documented as of this encounter Care Teams Mascara Molder Relationship Specialty Start Date End Date Dara Tavera FNP [address] [place] [address] PCP - General NURSE PRACTITIONER 10/13/18 documented as of this encounter
--- OUTSIDE RECORDS SUMMARY | 2025-05-19 18:38 | XMS_ITS | Encounter Summary ---
Author Organization [facility] Address [address] [place] [address] Care Team Providers Care Spray Machine Operator Name Role Phone Dara Tavera Primary Care Provider Encounter Details Date Type Department Care Team (Latest Contact Info) Description 11/08/2002 Outpatient Historical [facility] Ear, Nose and Throat 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
--- OUTSIDE RECORDS SUMMARY | 2025-05-19 18:38 | XMS_ITS | Encounter Summary ---
Author Organization [facility] Address [address] [place] [address] Care Team Providers Care Tin Pot Operator Name Role Phone Ayse Dara BERNSTEIN Primary Care Provider Encounter Details Date Type Department Care Team (Latest Contact Info) Description 11/18/2002 Outpatient [facility] Ear, Nose and Th[facility]at [facility] [place] [phone] Dmitri Vega MD [address] [place] [address] SURGERY FOLLOWUP, UNSPEC (Primary Dx) Social History Tobacco Use Types Packs/Day Years Used Date Smoking Tobacco: Never Assessed Comments Unknown Sex and Gender Information Value Date Recorded Sex Assigned at Not on file Legal Sex Female 5:22 AM PIPELINE SYSTEMS OPERATOR Gender Identity Not on file Sexual Orientation Not on file documented as of this encounter Plan of Treatment Not on file documented as of this encounter Visit Diagnoses Diagnosis Follow-up examination, following unspecified surgery- Primary documented in this encounter Additional Health Concerns Infection Onset Date Last Indicated Resolved Time VRE Comment:Urine 10/30/13 Resolved 11/04/2013 11/04/2013 8 10:33 AM PIPELINE SYSTEMS OPERATOR R/O COVID-19 12/25/2019 12/25/2019 12/26/2019 2:46 PM CDT R/O COVID-19 05/09/2020 05/09/2020 05/09/2020 12:1 7 PM PIPELINE SYSTEMS OPERATOR documented as of this encounter Care Teams Tin Pot Operator Relationship Specialty Start Date End Date Dara Tavera FNP [address] [place] [phone] PCP - General NURSE PRACTITIONER 10/13/18 documented as of this encounter
--- OUTSIDE RECORDS SUMMARY | 2025-05-19 18:38 | XMS_ITS | Encounter Summary ---
Author Organization [facility] Address [address] [place] [address] Care Team Providers Care Needle Setter Name Role Phone Dara Tavera Primary Care Provider Encounter Details Date Type Department Care Team (Latest Contact Info) Description 12/09/2004 Outpatient Historical [facility] Family Medicine [place] [address] [facility] [address] [place] [address] Faiza Petersen MD NO ADDRESS ON FILE URIN TRACT INFECTION NOS (Primary Dx); ABDOMINAL PAIN UNSPEC SITE; ABDOMINAL TENDERNESS UNSP SITE Social History Tobacco Use Types Packs/Day Years Used Date Smoking Tobacco: Never Assessed Comments Unknown Sex and Gender Information Value Date Recorded Sex Assigned at Not on file Legal Sex Female 5:22 AM FILAMENT MAKER Gender Identity Not on file Sexual [...] 10/30/13 Resolved 11/04/2013 11/04/2013 8 10:33 AM FILAMENT MAKER R/O COVID-19 12/25/2019 12/25/2019 12/26/2019 2:46 PM CDT R/O COVID-19 05/09/2020 05/09/2020 05/09/2020 12:1 7 PM FILAMENT MAKER documented as of this encounter Care Teams Needle Setter Relationship Specialty Start Date End Date Dara Tavera FNP [address] [place] [phone] PCP - General NURSE PRACTITIONER 10/13/18 documented as of this encounter
--- OUTSIDE RECORDS SUMMARY | 2025-05-19 18:38 | XMS_ITS | Encounter Summary ---
Author Organization [facility] Address [address] [place] [address] Care Team Providers Care It Senior Software Engineer Java Name Role Phone Dara Tavera Primary Care Provider Encounter Details Date Type Department Care Team (Latest Contact Info) Description 08/14/2003 Outpatient Historical [facility] Urology- [address] Entrance B, 3rd [place] [address] Hossein Blair MD NO ADDRESS ON FILE FEMALE STRESS INCONTINENCE (Primary Dx) Social History Tobacco Use Types Packs/Day Years Used Date Smoking Tobacco: Never Assessed Comments Unknown Sex and Gender Information Value Date Recorded Sex Assigned at Not on file Legal Sex Female 5:22 AM INTERPERSONAL COMMUNICATIONS PROFESSOR Gender Identity Not on file Sexual Orientation Not on file documented as of this encounter Plan of Treatment Not on file documented as of this encounter Visit Diagnoses Diagnosis Female stress incontinence- Primary documented in this encounter Additional Health Concerns Infection Onset Date Last Indicated Resolved Time VRE Comment:Urine 10/30/13 Resolved 11/04/2013 11/04/2013 8 10:33 AM INTERPERSONAL COMMUNICATIONS PROFESSOR R/O COVID-19 12/25/2019 12/25/2019 12/26/2019 2:46 PM CDT R/O COVID-19 05/09/2020 05/09/2020 05/09/2020 12:1 7 PM INTERPERSONAL COMMUNICATIONS PROFESSOR documented as of this encounter Care Teams It Senior Software Engineer Java Relationship Specialty Start Date End Date Dara Tavera FNP [address] [place] [phone] PCP - General NURSE PRACTITIONER 10/13/18 documented as of this encounter
--- OUTSIDE RECORDS SUMMARY | 2025-05-19 18:38 | XMS_ITS | Encounter Summary ---
Author Organization [facility] Address [address] [place] [address] Care Team Providers Care Fulfillment Specialist Name Role Phone Dara Tavera SPECIAL AGENT Primary Care Provider Encounter Details Date Type Department Care Team (Latest Contact Info) Description 12/04/2003 Outpatient Historical [facility] Behavioral Clinical Services [address] [place] [address] Hood Kerr Jr., MD [address] [place] [address] SCHIZOAFFECTIVE-UNSP EC (CMS/HCC) (Primary Dx) Social History Tobacco Use Types Packs/Day Years Used Date Smoking Tobacco: Never Assessed Comments Unknown Sex and Gender Information Value Date Recorded Sex Assigned at Not on file Legal Sex Female 5:22 AM NETEZZA DEVELOPER Gender Identity Not on file Sexual Orientation Not on file documented as of this encounter Plan of Treatment Not on file documented as of this encounter Visit Diagnoses Diagnosis Schizoaffective disorder, unspecified condition (CMS/HCC)- Primary Schizoaffective disorder, unspecified condition documented in this encounter Additional Health Concerns Infection Onset Date Last Indicated Resolved Time VRE Comment:Urine 10/30/13 Resolved 11/04/2013 11/04/2013 8 10:33 AM NETEZZA DEVELOPER R/O COVID-19 12/25/2019 12/25/2019 12/26/2019 2:46 PM CDT R/O COVID-19 05/09/2020 05/09/2020 05/09/2020 12:1 7 PM NETEZZA DEVELOPER documented as of this encounter Care Teams Fulfillment Specialist Relationship Specialty Start Date End Date Dara Tavera FNP [address] [place] [phone] PCP - General NURSE PRACTITIONER 10/13/18 documented as of this encounter
--- OUTSIDE RECORDS SUMMARY | 2025-05-19 18:38 | XMS_ITS | Encounter Summary ---
Author Organization [facility] Address [address] [place] [address] Care Team Providers Care Dietary Clerk Name Role Phone Dara Tavera Primary [...] file Legal Sex Female 5:22 AM PLANT SCIENCE PROFESSOR Gender Identity Not on file Sexual Orientation Not on file documented as of this encounter Plan of Treatment Not on file documented as of this encounter Visit Diagnoses Not on filedocumented in this encounter Additional Health Concerns Infection Onset Date Last Indicated Resolved Time VRE Comment:Urine 10/30/13 Resolved 11/04/2013 11/04/2013 8 10:33 AM PLANT SCIENCE PROFESSOR R/O COVID-19 12/25/2019 12/25/2019 12/26/2019 2:46 PM CDT R/O COVID-19 05/09/2020 05/09/2020 05/09/2020 12:1 7 PM PLANT SCIENCE PROFESSOR documented as of this encounter Care Teams Dietary Clerk Relationship Specialty Start Date End Date Dara Tavera FNP [address] [place] [address] PCP - General NURSE PRACTITIONER 10/13/18 documented as of this encounter
--- OUTSIDE RECORDS SUMMARY | 2025-05-19 18:38 | XMS_ITS | Encounter Summary ---
Author Organization [facility] Address [address] [facility] Attn: [place] [address] Care Team Providers Care Hat Brusher Machine Name Role Phone Dara Tavera AMANDEEP Primary Care Provider [phone] Encounter Details Date Type Department Care Team (Late st Contact Info) Description 05/02/2003 Inpatient Historical Hood Kerr Jr., MD [address] [facility] [place] [address] SCHIZOAFF-SUBCHR/EXACER (CMS/[facility]) (Primary Dx) Social History Tobacco Use Types Packs/Day Years Used Date Smoking Tobacco: Never Assessed Comments Unknown Sex and Gender Information Value Date Recorded Sex Assigned at Not on file Legal Sex Female 5:22 AM CUSTODIAL SERVICES MANAGER Gender Identity Not on file [...] 10/30/13 Resolved 11/04/2013 11/04/2013 8 10:33 AM CUSTODIAL SERVICES MANAGER R/O COVID-19 12/25/2019 12/25/2019 12/26/2019 2:46 PM CDT R/O COVID-19 05/09/2020 05/09/2020 05/09/2020 12:1 7 PM CUSTODIAL SERVICES MANAGER documented as of this encounter Care Teams Hat Brusher Machine Relationship Specialty Start Date End Date Dara Tavera FNP [address] [place] [phone] PCP - General NURSE PRACTITIONER 10/13/18 documented as of this encounter
--- OUTSIDE RECORDS SUMMARY | 2025-05-19 18:38 | XMS_ITS | Encounter Summary ---
Author Organization [facility] Address [address] [place] [address] Care Team Providers Care Schedule Maker Name Role Phone Dara Tavera Primary Care Provider Encounter Details Date Type Department Care Team (Latest Contact Info) Description 01/21/2004 Outpatient Historical [facility] Ambulance [address] [place] [address] AMBULANCE, [facility] CONVULSIONS, OTHER (CMS/HCC) (Primary Dx) Social History Tobacco Use Types Packs/Day Years Used Date Smoking Tobacco: Never Assessed Comments Unknown Sex and Gender Information Value Date Recorded Sex Assigned at Not on file Legal Sex Female 5:22 AM REFRIGERATING TECHNICIAN Gender Identity Not on file Sexual Orientation Not on file documented as of this encounter Plan of Treatment Not on file documented as of this encounter Visit Diagnoses Diagnosis Other convulsions- Primary documented in this encounter Additional Health Concerns Infection Onset Date Last Indicated Resolved Time VRE Comment:Urine 10/30/13 Resolved 11/04/2013 11/04/2013 8 10:33 AM REFRIGERATING TECHNICIAN R/O COVID-19 12/25/2019 12/25/2019 12/26/2019 2:46 PM CDT R/O COVID-19 05/09/2020 05/09/2020 05/09/2020 12:1 7 PM REFRIGERATING TECHNICIAN documented as of this encounter Care Teams Schedule Maker Relationship Specialty Start Date End Date Dara Tavera FNP [address] [place] [phone] PCP - General NURSE PRACTITIONER 10/13/18 documented as of this encounter
--- OUTSIDE RECORDS SUMMARY | 2025-05-19 18:38 | XMS_ITS | Encounter Summary ---
Author Organization [facility] Address [address] [place] [address] Care Team Providers Care Jewish Thought Professor Name Role Phone Dara Tavera Primary Care Provider Encounter Details Date Type Department Care Team (Latest Contact Info) Description 06/28/2003 Outpatient Historical [facility] Behavioral Clinical Services [address] [place] [address] Oniel Upton MD NO ADDRESS ON FILE SCHIZOAFFECTIVE-UNSP EC ([facility]/HCC) (Primary Dx) Social History Tobacco Use [...] Visit Diagnoses Diagnosis Schizoaffective disorder, unspecified condition ([facility]/HCC)- Primary Schizoaffective disorder, unspecified condition documented in this encounter Additional Health Concerns Infection Onset Date Last Indicated Resolved Time VRE Comment:Urine 10/30/13 Resolved 11/04/2013 11/04/2013 8 10:33 AM PHYSICS PROFESSOR R/O COVID-19 12/25/2019 12/25/2019 12/26/2019 2:46 PM CDT R/O COVID-19 05/09/2020 05/09/2020 05/09/2020 12:1 7 PM PHYSICS PROFESSOR documented as of this encounter Care Teams Jewish Thought Professor Relationship Specialty Start Date End Date Dara Tavera FNP [address] [place] [phone] PCP - General NURSE PRACTITIONER 10/13/18 documented as of this encounter
--- OUTSIDE RECORDS SUMMARY | 2025-05-19 18:38 | XMS_ITS | Encounter Summary ---
Author Organization [facility] Address [address] [place] [address] Care Team Providers Care Energy Conservation Representative Name Role Phone Dara Tavera AMANDEEP Primary Care Provider Encounter Details Date Type Department Care Team (Latest Contact Info) Description 11/04/2002 Outpatient Historical [facility] Ear, Nose and Throat [place] [address] 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
--- OUTSIDE RECORDS SUMMARY | 2025-05-19 18:38 | XMS_ITS | Encounter Summary ---
Author Organization [facility] Address [address] [place] [address] Care Team Providers Care Real Estate Administrator Name Role Phone Dara Tavera Primary Care Provider [phone] Encounter Details Date Type Department Care Team (Latest Contact Info) Description 05/22/2003 Outpatient Historical [facility] Urology- [address] Entrance B, 3rd [place] [address] Hossein Blair MD NO ADDRESS ON FILE FB bladder/urethra (Primary Dx); URGE & STRESS MIXED INCONTINENCE Social History Tobacco Use Types Packs/Day Years Used Date Smoking Tobacco: Never Assessed Comments Unknown Sex and Gender Information Value Date Recorded Sex Assigned at Not on file Legal Sex Female 5:22 AM RECYCLING WORKER Gender Identity Not on file Sexual [...] 10/30/13 Resolved 11/04/2013 11/04/2013 8 10:33 AM RECYCLING WORKER R/O COVID-19 12/25/2019 12/25/2019 12/26/2019 2:46 PM CDT R/O COVID-19 05/09/2020 05/09/2020 05/09/2020 12:1 7 PM RECYCLING WORKER documented as of this encounter Care Teams Real Estate Administrator Relationship Specialty Start Date End Date Dara Tavera FNP [address] [place] [phone] PCP - General NURSE PRACTITIONER 10/13/18 documented as of this encounter
--- OUTSIDE RECORDS SUMMARY | 2025-05-19 18:38 | XMS_ITS | Encounter Summary ---
Author Organization [facility] Address [address] [place] [address] Care Team Providers Care Flume Ride Operator Name Role Phone Dara Tavera Primary Care Provider Encounter Details Date Type Department Care Team (Latest Contact Info) Description 02/11/2004 Outpatient Historical [facility] Ambulance [address] [place] [address] AMBULANCE, [facility] NONPSYCHOTIC MENTAL DISORDER NOS (Primary Dx) Social History Tobacco Use Types Packs/Day Years Used Date Smoking Tobacco: Never Assessed Comments Unknown Sex and Gender Information Value Date Recorded Sex Assigned at Not on file Legal Sex Female 5:22 AM SPECIAL PROJECTS MANAGER Gender Identity Not on file Sexual Orientation Not on file documented as of this encounter Plan of Treatment Not on file documented as of this encounter Visit Diagnoses Diagnosis Unspecified nonpsychotic mental disorder- Primary documented in this encounter Additional Health Concerns Infection Onset Date Last Indicated Resolved Time VRE Comment:Urine 10/30/13 Resolved 11/04/2013 11/04/2013 8 10:33 AM SPECIAL PROJECTS MANAGER R/O COVID-19 12/25/2019 12/25/2019 12/26/2019 2:46 PM CDT R/O COVID-19 05/09/2020 05/09/2020 05/09/2020 12:1 7 PM SPECIAL PROJECTS MANAGER documented as of this encounter Care Teams Flume Ride Operator Relationship Specialty Start Date End Date Dara Tavera FNP [address] [place] [phone] PCP - General NURSE PRACTITIONER 10/13/18 documented as of this encounter
--- OUTSIDE RECORDS SUMMARY | 2025-05-19 18:38 | XMS_ITS | Encounter Summary ---
Author Organization [facility] Address [address] [place] [address] Care Team Providers Care Expedition Supervisor Name Role Phone Dara Tavera Primary Care Provider Encounter Details Date Type Department Care Team (Latest Contact Info) Description 11/08/2002 Outpatient Historical [facility] Operating Room [address] [place] [address] Dmitri Vega MD [address] [place] [address] BENIGN NEOPLASM TONGUE (Primary Dx) Social History Tobacco Use Types Packs/Day Years Used Date Smoking Tobacco: Never Assessed Comments Unknown Sex and Gender Information Value Date Recorded Sex Assigned at Not on file Legal Sex Female 5:22 AM MACHINIST BRAKE Gender Identity Not on file Sexual Orientation Not on file documented as of this encounter Plan of Treatment Not on file documented as of this encounter Visit Diagnoses Diagnosis Benign neoplasm of tongue- Primary documented in this encounter Additional Health Concerns Infection Onset Date Last Indicated Resolved Time VRE Comment:Urine 10/30/13 Resolved 11/04/2013 11/04/2013 8 10:33 AM MACHINIST BRAKE R/O COVID-19 12/25/2019 12/25/2019 12/26/2019 2:46 PM CDT R/O COVID-19 05/09/2020 05/09/2020 05/09/2020 12:1 7 PM MACHINIST BRAKE documented as of this encounter Care Teams Expedition Supervisor Relationship Specialty Start Date End Date Dara Tavera FNP [address] [place] [phone] PCP - General NURSE PRACTITIONER 10/13/18 documented as of this encounter
--- OUTSIDE RECORDS SUMMARY | 2025-05-19 18:38 | XMS_ITS | Encounter Summary ---
Author Organization [facility] Address [address] [place] [address] Care Team Providers Care High Rigger Name Role Phone Dara Tavera Primary Care Provider [phone] Encounter Details Date Type Department Care Team (Latest Contact Info) Description 05/12/2004 Outpatient Historical [facility] Ambulance [address] [place] [address] AMBULANCE, [facility] CHEST PAIN NOS (Primary Dx) Social History Tobacco Use Types Packs/Day Years Used Date Smoking Tobacco: Never Assessed Comments Unknown Sex and Gender Information Value Date Recorded Sex Assigned at Not on file Legal Sex Female 5:22 AM SALT LIFTER Gender Identity Not on file Sexual Orientation Not on file documented as of this encounter Plan of Treatment Not on file documented as of this encounter Visit Diagnoses Diagnosis Chest pain, unspecified- Primary documented in this encounter Additional Health Concerns Infection Onset Date Last Indicated Resolved Time VRE Comment:Urine 10/30/13 Resolved 11/04/2013 11/04/2013 8 10:33 AM SALT LIFTER R/O COVID-19 12/25/2019 12/25/2019 12/26/2019 2:46 PM CDT R/O COVID-19 05/09/2020 05/09/2020 05/09/2020 12:1 7 PM SALT LIFTER documented as of this encounter Care Teams High Rigger Relationship Specialty Start Date End Date Dara Tavera FNP [address] [place] [phone] PCP - General NURSE PRACTITIONER 10/13/18 documented as of this encounter
--- OUTSIDE RECORDS SUMMARY | 2025-05-19 18:38 | XMS_ITS | Encounter Summary ---
Author Organization [facility] Address [address] [place] [address] Care Team Providers Care Bag Machine Operator Name Role Phone Dara Tavera AMANDEEP Primary Care Provider Encounter Details Date Type Department Care Team (Latest Contact Info) Description 12/08/2003 Inpatient Historical [facility] [address] [place] [address] Robel Samuel MD [address] [place] [address] DRUG DEPRESSIVE SYNDROME (CMS/HCC) (Primary Dx) Social History Tobacco Use Types Packs/Day Years Used Date Smoking Tobacco: Never Assessed Comments Unknown Sex and Gender Information Value Date Recorded Sex Assigned at Not on file Legal Sex Female 5:22 AM DRIVER GUIDE Gender Identity Not on file Sexual Orientation Not on file documented as of this encounter Plan of Treatment Not on file documented as of this encounter Visit Diagnoses Diagnosis 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/HCC)- Primary Drug-induced mood disorder documented in this encounter Additional Health Concerns Infection Onset Date Last Indicated Resolved Time VRE Comment:Urine 10/30/13 Resolved 11/04/2013 11/04/2013 8 10:33 AM DRIVER GUIDE R/O COVID-19 12/25/2019 12/25/2019 12/26/2019 2:46 PM CDT R/O COVID-19 05/09/2020 05/09/2020 05/09/2020 12:1 7 PM DRIVER GUIDE documented as of this encounter Care Teams Bag Machine Operator Relationship Specialty Start Date End Date Dara Tavera FNP [address] [place] [phone] PCP - General NURSE PRACTITIONER 10/13/18 documented as of this encounter
--- OUTSIDE RECORDS SUMMARY | 2025-05-19 18:38 | XMS_ITS | Encounter Summary ---
Author Organization [facility] Address [address] [place] [address] Care Team Providers Care Sports Apparel Internship Name Role Phone Dara Tavera STREET ENGINEER Primary Care Provider Encounter Details Date Type Department Care Team (Latest Contact Info) Description 02/10/2005 Outpatient Historical [facility] Medicine [place] [address] [facility] [address] [place] [address] Faiza Petersen MD NO ADDRESS ON FILE ALLERGIC RHINITIS NOS (Primary Dx); HEADACHE; AFTERCARE LONGTERM USE MEDICATN; CONVULSIONS NEC ([facility]) Social History Tobacco Use Types Packs/Day Years Used Date Smoking Tobacco: Never Assessed Comments Unknown Sex and Gender Information Value Date Recorded Sex Assigned at Not on file Legal Sex Female 5:22 AM STEEL DETAILER Gender Identity Not on file Sexual Orientation [...] 10/30/13 Resolved 11/04/2013 11/04/2013 8 10:33 AM STEEL DETAILER R/O COVID-19 12/25/2019 12/25/2019 12/26/2019 2:46 PM CDT R/O COVID-19 05/09/2020 05/09/2020 05/09/2020 12:1 7 PM STEEL DETAILER documented as of this encounter Care Teams Sports Apparel Internship Relationship Specialty Start Date End Date Dara Tavera FNP [address] [place] [phone] PCP - General NURSE PRACTITIONER 10/13/18 documented as of this encounter
--- OUTSIDE RECORDS SUMMARY | 2025-05-19 18:38 | XMS_ITS | Encounter Summary ---
Author Organization [facility] Address [address] Attn: [place] [address] Care Team Providers Care Weight Analyst Name Role Phone Dara Tavera Primary Care Provider Encounter Details Date Type Department Care Team ([facility] Contact Info) Description 02/13/2003 Inpatient Historical Oniel Upton MD NO ADDRESS ON FILE ACUTE SCHIZOPHRENIA-CHR (CMS/HCC) (Primary Dx) Social History Tobacco Use Types Packs/Day Years Used Date Smoking Tobacco: Never Assessed Comments Unknown Sex and Gender Information Value Date Recorded Sex Assigned at Not on file Legal Sex Female 5:22 AM SIZE CHANGER Gender Identity Not on file Sexual Orientation Not on file documented as of this encounter Plan of Treatment Not on file documented as of this encounter Visit Diagnoses Diagnosis Schizophreniform disorder, chronic condition (CMS/HCC)- Primary Schizophreniform disorder, chronic condition documented in this encounter Additional Health Concerns Infection Onset Date Last Indicated Resolved Time VRE Comment:Urine 10/30/13 Resolved 11/04/2013 11/04/2013 8 10:33 AM SIZE CHANGER R/O COVID-19 12/25/2019 12/25/2019 12/26/2019 2:46 PM CDT R/O COVID-19 05/09/2020 05/09/2020 05/09/2020 12:1 7 PM SIZE CHANGER documented as of this encounter Care Teams Weight Analyst Relationship Specialty Start Date End Date Dara Tavera FNP [address] [place] [address] PCP - General NURSE PRACTITIONER 10/13/18 documented as of this encounter
--- OUTSIDE RECORDS SUMMARY | 2025-05-19 18:38 | XMS_ITS | Encounter Summary ---
Author Organization [facility] Address [address] [place] [address] Care Team Providers Care Camp Head Counselor Name Role Phone Dara Tavera Primary Care Provider Encounter Details Date Type Department Care Team (Latest Contact Info) Description 03/21/2005 Outpatient Historical [facility] [address] [place] [address] AMBULANCE, [facility] DEPRESSIVE DISORDER NEC (Primary Dx) Social History Tobacco Use Types Packs/Day Years Used Date Smoking Tobacco: Never Assessed Comments Unknown Sex and Gender Information Value Date Recorded Sex Assigned at Not on file Legal Sex Female 5:22 AM VAULT WORKER Gender Identity Not on file Sexual Orientation Not on file documented as of this encounter Plan of Treatment Not on file documented as of this encounter Visit Diagnoses Diagnosis Depressive disorder, not elsewhere classified- Primary documented in this encounter Additional Health Concerns Infection Onset Date Last Indicated Resolved Time VRE Comment:Urine 10/30/13 Resolved 11/04/2013 11/04/2013 8 10:33 AM VAULT WORKER R/O COVID-19 12/25/2019 12/25/2019 12/26/2019 2:46 PM CDT R/O COVID-19 05/09/2020 05/09/2020 05/09/2020 12:1 7 PM VAULT WORKER documented as of this encounter Care Teams Camp Head Counselor Relationship Specialty Start Date End Date Dara Tavera FNP [address] [place] [phone] PCP - General NURSE PRACTITIONER 10/13/18 documented as of this encounter
--- OUTSIDE RECORDS SUMMARY | 2025-05-19 18:38 | XMS_ITS | Encounter Summary ---
Author Organization [facility] Address [address] [place] [address] Care Team Providers Care Esol Teacher Name Role Phone Dara Tavera Primary Care Provider Encounter Details Date Type Department Care Team (Late st Contact Info) Description 05/30/2005 Outpatient Historical [facility] Pain Management Procedures [address] [place] [address] Prasad Carpenter MD NO ADDRESS ON FILE Social History Tobacco Use Types Packs/Day Years Used Date Smoking Tobacco: Never Assessed Comments Unknown Sex and Gender Information Value Date Recorded Sex Assigned at Not on file Legal Sex Female 5:22 AM AUTOMOBILE BODY REPAIRER Gender Identity Not on file Sexual Orientation Not on file documented as of this encounter Plan of Treatment Not on file documented as of this encounter Visit Diagnoses Not on filedocumented in this encounter Additional Health Concerns Infection Onset Date Last Indicated Resolved Time VRE Comment:Urine 10/30/13 Resolved 11/04/2013 11/04/2013 8 10:33 AM AUTOMOBILE BODY REPAIRER R/O COVID-19 12/25/2019 12/25/2019 12/26/2019 2:46 PM CDT R/O COVID-19 05/09/2020 05/09/2020 05/09/2020 12:1 7 PM AUTOMOBILE BODY REPAIRER documented as of this encounter Care Teams Esol Teacher Relationship Specialty Start Date End Date Dara Tavera FNP [address] [place] [address] PCP - General NURSE PRACTITIONER 10/13/18 documented as of this encounter
--- OUTSIDE RECORDS SUMMARY | 2025-05-19 18:38 | XMS_ITS | Encounter Summary ---
Author Organization [facility] Address [address] [place] [address] Care Team Providers Care Sales Exhibitor Name Role Phone Dara Tavera Primary Care [...] on file Legal Sex Female 5:22 AM OBSTETRICS NURSE PRACTITIONER Gender Identity Not on file Sexual Orientation Not on file documented as of this encounter Plan of Treatment Not on file documented as of this encounter Visit Diagnoses Not on filedocumented in this encounter Additional Health Concerns Infection Onset Date Last Indicated Resolved Time VRE Comment:Urine 10/30/13 Resolved 11/04/2013 11/04/2013 8 10:33 AM OBSTETRICS NURSE PRACTITIONER R/O COVID-19 12/25/2019 12/25/2019 12/26/2019 2:46 PM CDT R/O COVID-19 05/09/2020 05/09/2020 05/09/2020 12:1 7 PM OBSTETRICS NURSE PRACTITIONER documented as of this encounter Care Teams Sales Exhibitor Relationship Specialty Start Date End Date Dara Tavera FNP [address] [place] [phone] PCP - General NURSE PRACTITIONER 10/13/18 documented as of this encounter
--- OUTSIDE RECORDS SUMMARY | 2025-05-19 18:38 | XMS_ITS | Encounter Summary ---
Author Organization [facility] Address [address] [place] [address] Care Team Providers Care Maintenance Repairman Name Role Phone Dara Tavera AMANDEEP Primary Care Provider Encounter Details Date Type Department Care Team (Latest Contact Info) Description 03/07/2005 Outpatient Historical [facility] Pain Management- [place] [address] [place] [address] Prasad Carpenter MD NO ADDRESS ON FILE Lumbosacral spondylosis (Primary Dx); LUMBAGO; LUMB/LUMBOSAC DISC DEGEN; OTHER BACK SYMPTOMS Social History Tobacco Use Types Packs/Day Years Used Date Smoking Tobacco: Never Assessed Comments Unknown Sex and Gender Information Value Date Recorded Sex Assigned at Not on file Legal Sex Female 5:22 AM PULP MILL SUPERVISOR Gender Identity Not on file Sexual [...] 10/30/13 Resolved 11/04/2013 11/04/2013 8 10:33 AM PULP MILL SUPERVISOR R/O COVID-19 12/25/2019 12/25/2019 12/26/2019 2:46 PM CDT R/O COVID-19 05/09/2020 05/09/2020 05/09/2020 12:1 7 PM PULP MILL SUPERVISOR documented as of this encounter Care Teams Maintenance Repairman Relationship Specialty Start Date End Date Dara Tavera FNP [address] [place] [phone] PCP - General NURSE PRACTITIONER 10/13/18 documented as of this encounter
--- OUTSIDE RECORDS SUMMARY | 2025-05-19 18:38 | XMS_ITS | Encounter Summary ---
Author Organization [facility] Address [address] [place] [address] Care Team Providers Care Transit Mixer Driver Name Role Phone Dara Tavera Primary Care Provider Encounter Details Date Type Department Care Team (Latest Contact Info) Description 07/24/2004 Outpatient Historical [facility] [address] [place] [address] AMBULANCE, [facility] CONVULSIONS, OTHER (CMS/HCC) (Primary Dx) Social History Tobacco Use Types Packs/Day Years Used Date Smoking Tobacco: Never Assessed Comments Unknown Sex and Gender Information Value Date Recorded Sex Assigned at Not on file Legal Sex Female 5:22 AM LEGAL WRITING PROFESSOR Gender Identity Not on file Sexual Orientation Not on file documented as of this encounter Plan of Treatment Not on file documented as of this encounter Visit Diagnoses Diagnosis Other convulsions- Primary documented in this encounter Additional Health Concerns Infection Onset Date Last Indicated Resolved Time VRE Comment:Urine 10/30/13 Resolved 11/04/2013 11/04/2013 8 10:33 AM LEGAL WRITING PROFESSOR R/O COVID-19 12/25/2019 12/25/2019 12/26/2019 2:46 PM CDT R/O COVID-19 05/09/2020 05/09/2020 05/09/2020 12:1 7 PM LEGAL WRITING PROFESSOR documented as of this encounter Care Teams Transit Mixer Driver Relationship Specialty Start Date End Date Dara Tavera FNP [address] [place] [address] PCP - General NURSE PRACTITIONER 10/13/18 documented as of this encounter
--- OUTSIDE RECORDS SUMMARY | 2025-05-19 18:38 | XMS_ITS | Encounter Summary ---
Author Organization [facility] Address [address] [place] [address] Care Team Providers Care Agribusiness Internship Name Role Phone Dara Tavera Primary Care Provider Encounter Details Date Type Department Care Team (Latest Contact Info) Description 07/02/2003 Outpatient Historical [facility] Imaging Services [address] [place] [address] Hossein Blair MD NO ADDRESS ON FILE RENAL & URETERAL DIS NOS (Primary Dx) Social History Tobacco Use Types Packs/Day Years Used Date Smoking Tobacco: Never Assessed Comments Unknown Sex and Gender Information Value Date Recorded Sex Assigned at Not on file Legal Sex Female 5:22 AM WINDOW DECORATOR Gender Identity Not on file Sexual Orientation Not on file documented as of this encounter Plan of Treatment Not on file documented as of this encounter Visit Diagnoses Diagnosis Unspecified disorder of kidney and ureter- Primary documented in this encounter Additional Health Concerns Infection Onset Date Last Indicated Resolved Time VRE Comment:Urine 10/30/13 Resolved 11/04/2013 11/04/2013 10:33 AM WINDOW DECORATOR R/O COVID-19 12/25/2019 12/25/2019 12/26/2019 2:46 PM CDT R/O COVID-19 05/09/2020 05/09/2020 05/09/2020 12:1 7 PM WINDOW DECORATOR documented as of this encounter Care Teams Agribusiness Internship Relationship Specialty Start Date End Date Dara Tavera FNP [address] [place] [phone] PCP - General NURSE PRACTITIONER 10/13/18 documented as of this encounter
--- OUTSIDE RECORDS SUMMARY | 2025-05-19 18:38 | XMS_ITS | Encounter Summary ---
Author Organization [facility] Address [address] [place] [address] Care Team Providers Care Evs Attendant Name Role Phone Dara Tavera Primary Care Provider Encounter Details Date Type Department Care Team (Late st Contact Info) Description 12/05/2003 Outpatient Historical [facility] Behavioral Clinical Services [address] [place] [address] Hood Kerr Jr., MD [address] [place] [address] Social History Tobacco Use Types Packs/Day Years Used Date Smoking Tobacco: Never Assessed Comments Unknown Sex and Gender Information Value Date Recorded Sex Assigned at Not on file Legal Sex Female 5:22 AM BRUSHER TENDER Gender Identity Not on file Sexual Orientation Not on file documented as of this encounter Plan of Treatment Not on file documented as of this encounter Visit Diagnoses Not on filedocumented in this encounter Additional Health Concerns Infection Onset Date Last Indicated Resolved Time VRE Comment:Urine 10/30/13 Resolved 11/04/2013 11/04/2013 8 10:33 AM BRUSHER TENDER R/O COVID-19 12/25/2019 12/25/2019 12/26/2019 2:46 PM CDT R/O COVID-19 05/09/2020 05/09/2020 05/09/2020 12:1 7 PM BRUSHER TENDER documented as of this encounter Care Teams Evs Attendant Relationship Specialty Start Date End Date Dara Tavera FNP [address] [place] [phone] PCP - General NURSE PRACTITIONER 10/13/18 documented as of this encounter
--- OUTSIDE RECORDS SUMMARY | 2025-05-19 18:38 | XMS_ITS | Encounter Summary ---
Author Organization [facility] Address [address] [place] [address] Care Team Providers Care Carpenter Mine Name Role Phone Dara Tavera Primary Care Provider Encounter Details Date Type Department Care Team (Latest Contact Info) Description 12/07/2003 Outpatient Historical [facility] SCHIZOPHRENIA NOS-UNSPEC (CMS/HCC) (Primary Dx) Social History Tobacco Use Types Packs/Day Years Used Date Smoking Tobacco: Never Assessed Comments Unknown Sex and Gender Information Value Date Recorded Sex Assigned at Not on file Legal Sex Female 5:22 AM NAPHTHOL SOAPING MACHINE OPERATOR Gender Identity Not on file [...] 10/30/13 Resolved 11/04/2013 11/04/2013 8 10:33 AM NAPHTHOL SOAPING MACHINE OPERATOR R/O COVID-19 12/25/2019 12/25/2019 12/26/2019 2:46 PM CDT R/O COVID-19 05/09/2020 05/09/2020 05/09/2020 12:1 7 PM NAPHTHOL SOAPING MACHINE OPERATOR documented as of this encounter Care Teams Carpenter Mine Relationship Specialty Start Date End Date Dara Tavera FNP [address] [place] [phone] PCP - General NURSE PRACTITIONER 10/13/18 documented as of this encounter
--- OUTSIDE RECORDS SUMMARY | 2025-05-19 18:38 | XMS_ITS | Encounter Summary ---
Author Organization [facility] Address [address] [place] [address] Care Team Providers Care Motorcycle Technician Name Role Phone Dara Tavera Primary Care Provider Encounter Details Date Type Department Care Team (Latest Contact Info) Description 02/24/2005 Outpatient Historical [facility] [address] [facility] [address] [place] [address] Prasad Carpenter MD NO ADDRESS ON FILE LUMB/LUMBOSAC DISC DEGEN (Primary Dx) Social History Tobacco Use Types Packs/Day Years Used Date Smoking Tobacco: Never Assessed Comments Unknown Sex and Gender Information Value Date Recorded Sex Assigned at Not on file Legal Sex Female 5:22 AM APPLIANCE LINE ASSEMBLER Gender Identity Not on file Sexual Orientation Not on file documented as of this encounter Plan of Treatment Not on file documented as of this encounter Visit Diagnoses Diagnosis Degeneration of lumbar or lumbosacral intervertebral disc- Primary documented in this encounter Additional Health Concerns Infection Onset Date Last Indicated Resolved Time VRE Comment:Urine 10/30/13 Resolved 11/04/2013 11/04/2013 8 10:33 AM APPLIANCE LINE ASSEMBLER R/O COVID-19 12/25/2019 12/25/2019 12/26/2019 2:46 PM CDT R/O COVID-19 05/09/2020 05/09/2020 05/09/2020 12:1 7 PM APPLIANCE LINE ASSEMBLER documented as of this encounter Care Teams Motorcycle Technician Relationship Specialty Start Date End Date Dara Tavera FNP [address] [place] [phone] PCP - General NURSE PRACTITIONER 10/13/18 documented as of this encounter
[2025-05-19 18:39] LABS: Hematocrit 40.2 % (36-47); Hemoglobin 13.50 g/dL (11.27-16.99); Mean Corpuscular HGB Conc 33.6 g/dL (30-55); Mean Corpuscular Hemoglobin 33.7 pg (27-33); Mean Corpuscular Volume 100.2 fl (85-98); Nucleated Red Blood Cells % 0 %; Platelet Count 221 10^3/cmm (157-399); Red Blood Count 4.01 10^6/uL (3.85-5.65); White Blood Count 16.13 10^3/uL (3.29-11.43)
--- OUTSIDE RECORDS SUMMARY | 2025-05-19 18:39 | XMS_ITS | Encounter Summary ---
Author Organization [facility] Address [address] [place] [address] Care Team Providers Care Knurling Machine Tender Name Role Phone Dara Tavera INTERLIBRARY LOAN SPECIALIST Primary Care Provider Encounter Details Date Type Department Care Team (Latest Contact Info) Description 10/04/2003 Outpatient Historical [facility] Behavioral Clinical Services [address] [place] [address] Hood Kerr Jr., MD [address] [place] [address] SCHIZOAFFECTIVE-UNSP EC (CMS/HCC) (Primary Dx) Social History Tobacco Use Types Packs/Day Years Used Date Smoking Tobacco: Never Assessed Comments Unknown Sex and Gender Information Value Date Recorded Sex Assigned at Not on file Legal Sex Female 5:22 AM CONTAINER FINISHING INSPECTOR Gender Identity Not on file Sexual Orientation Not on file documented as of this encounter Plan of Treatment Not on file documented as of this encounter Visit Diagnoses Diagnosis Schizoaffective disorder, unspecified condition (CMS/HCC)- Primary Schizoaffective disorder, unspecified condition documented in this encounter Additional Health Concerns Infection Onset Date Last Indicated Resolved Time VRE Comment:Urine 10/30/13 Resolved 11/04/2013 11/04/2013 8 10:33 AM CONTAINER FINISHING INSPECTOR R/O COVID-19 12/25/2019 12/25/2019 12/26/2019 2:46 PM CDT R/O COVID-19 05/09/2020 05/09/2020 05/09/2020 12:1 7 PM CONTAINER FINISHING INSPECTOR documented as of this encounter Care Teams Knurling Machine Tender Relationship Specialty Start Date End Date Dara Taevra FNP [address] [place] [phone] PCP - General NURSE PRACTITIONER 10/13/18 documented as of this encounter
--- OUTSIDE RECORDS SUMMARY | 2025-05-19 18:39 | XMS_ITS | Encounter Summary ---
Author Organization [facility] Address [address] [place] [address] Care Team Providers Care Beef Cattle Farm Manager Name Role Phone Dara Tavera Primary Care Provider Encounter Details Date Type Department Care Team (Latest Contact Info) Description 09/23/2003 Outpatient Historical [facility] Imaging Services [address] [place] [address] Hossein Blair MD NO ADDRESS ON FILE ENURESIS NOS (Primary Dx) Social History Tobacco Use Types Packs/Day Years Used Date Smoking Tobacco: Never Assessed Comments Unknown Sex and Gender Information Value Date Recorded Sex Assigned at Not on file Legal Sex Female 5:22 AM PULL TAB DEALER Gender Identity Not on file Sexual Orientation Not on file documented as of this encounter Plan of Treatment Not on file documented as of this encounter Visit Diagnoses Diagnosis Unspecified urinary incontinence- Primary documented in this encounter Additional Health Concerns Infection Onset Date Last Indicated Resolved Time VRE Comment:Urine 10/30/13 Resolved 11/04/2013 11/04/2013 8 10:33 AM PULL TAB DEALER R/O COVID-19 12/25/2019 12/25/2019 12/26/2019 2:46 PM CDT R/O COVID-19 05/09/2020 05/09/2020 05/09/2020 12:1 7 PM PULL TAB DEALER documented as of this encounter Care Teams Beef Cattle Farm Manager Relationship Specialty Start Date End Date Dara Tavera FNP [address] [place] [address] PCP - General NURSE PRACTITIONER 10/13/18 documented as of this encounter
--- OUTSIDE RECORDS SUMMARY | 2025-05-19 18:39 | XMS_ITS | Encounter Summary ---
Author Organization [facility] Address [address] [place] [address] Care Team Providers Care Hot Man Name Role Phone Dara Tavera Primary Care Provider Encounter Details Date Type Department Care Team (Late st Contact Info) Description 05/19/2008 Outpatient Historical [facility] [address] [place] [address] AMBULANCE, [facility] Social History Tobacco Use Types Packs/Day Years Used Date Smoking Tobacco: Never Assessed Comments Unknown Sex and Gender Information Value Date Recorded Sex Assigned at Not on file Legal Sex Female 5:22 AM ACCOUNTS PAYABLE BOOKKEEPER Gender Identity Not on file Sexual Orientation Not on file documented as of this encounter Plan of Treatment Not on file documented as of this encounter Visit Diagnoses Not on filedocumented in this encounter Additional Health Concerns Infection Onset Date Last Indicated Resolved Time VRE Comment:Urine 10/30/13 Resolved 11/04/2013 11/04/2013 8 10:33 AM ACCOUNTS PAYABLE BOOKKEEPER R/O COVID-19 12/25/2019 12/25/2019 12/26/2019 2:46 PM CDT R/O COVID-19 05/09/2020 05/09/2020 05/09/2020 12:1 7 PM ACCOUNTS PAYABLE BOOKKEEPER documented as of this encounter Care Teams Hot Man Relationship Specialty Start Date End Date Dara Tavera FNP [address] [place] [phone] PCP - General NURSE PRACTITIONER 10/13/18 documented as of this encounter
--- OUTSIDE RECORDS SUMMARY | 2025-05-19 18:39 | XMS_ITS | Encounter Summary ---
Author Organization [facility] Address [address] [place] [address] Care Team Providers Care Service Girl Name Role Phone Dara Tavera Primary Care Provider Encounter Details Date Type Department Care Team (Latest Contact Info) Description 06/04/1997 Outpatient Historical [facility] Roney Arora MD [address] [facility] [address] [place] [address] Unspecified osteomyelitis, other specified site (Primary Dx); Need vaccination-viral disease Social History Tobacco Use Types Packs/Day Years Used Date Smoking Tobacco: Never Assessed Comments Unknown Sex and Gender Information Value Date Recorded Sex Assigned at Not on file Legal Sex Female 5:22 AM MANAGER SERVICES Gender Identity Not on file Sexual [...] Resolved 11/04/2013 11/04/2013 8 10:33 AM MANAGER SERVICES R/O COVID-19 12/25/2019 12/25/2019 12/26/2019 2:46 PM CDT R/O COVID-19 05/09/2020 05/09/2020 05/09/2020 12:1 7 PM MANAGER SERVICES documented as of this encounter Care Teams Service Girl Relationship Specialty Start Date End Date Dara Tavera FNP [address] [place] [phone] PCP - General NURSE PRACTITIONER 10/13/18 documented as of this encounter
--- OUTSIDE RECORDS SUMMARY | 2025-05-19 18:39 | XMS_ITS | Encounter Summary ---
Author Organization [facility] Address [address] [place] [address] Care Team Providers Care Chrome Tanning Drum Operator Name Role Phone Dara Tavera Primary Care Provider Encounter Details Date Type Department Care Team (Latest Contact Info) Description 06/17/1997 Outpatient Historical [facility] Roney Arora MD [address] [facility] [address] [place] [address] Unspecified osteomyelitis, site unspecified (CMS/HCC) (Primary Dx) Social History Tobacco Use Types Packs/Day Years Used Date Smoking Tobacco: Never Assessed Comments Unknown Sex and Gender Information Value Date Recorded Sex Assigned at Not on file Legal Sex Female 5:22 AM ROLL HAND Gender Identity Not on file Sexual [...] Resolved 11/04/2013 11/04/2013 8 10:33 AM ROLL HAND R/O COVID-19 12/25/2019 12/25/2019 12/26/2019 2:46 PM CDT R/O COVID-19 05/09/2020 05/09/2020 05/09/2020 12:1 7 PM ROLL HAND documented as of this encounter Care Teams Chrome Tanning Drum Operator Relationship Specialty Start Date End Date Dara Tavera FNP [address] [place] [phone] PCP - General NURSE PRACTITIONER 10/13/18 documented as of this encounter
--- OUTSIDE RECORDS SUMMARY | 2025-05-19 18:39 | XMS_ITS | Encounter Summary ---
Author Organization [facility] Address [address] [place] [address] Care Team Providers Care Packaging Materials Inspector Name Role Phone Dara Tavera AMANDEEP Primary Care Provider Encounter Details Date Type Department Care Team (Late st Contact Info) Description 08/11/2007 Emergency [facility] Emergency Department [address] [place] [address] Ed, Physician NO ADDRESS ON FILE Amaury De La Rosa MD NO ADDRESS ON FILE Social History Tobacco Use Types Packs/Day Years Used Date Smoking Tobacco: Never Assessed Comments Unknown Sex and Gender Information Value Date Recorded Sex Assigned at Not on file Legal Sex Female 5:22 AM DOUBLE END TENONER SETTER Gender Identity Not on file Sexual Orientation Not on file documented as of this encounter Plan of Treatment Not on file documented as of this encounter Procedures Procedure Name Priority Date/Time Associated Diagnosis Comments XR ABDOMEN 1 VW Routine 08/12/2007 4:46 AM DOUBLE END TENONER SETTER CBC WITH DIFFERENTIAL Stat 08/12/2007 4:19 AM DOUBLE END TENONER SETTER LIPASE Stat 08/12/2007 4:19 AM DOUBLE END TENONER SETTER COMPREHENSIVE METABOLIC PANEL Stat 08/12/2007 4:19 AM DOUBLE END TENONER SETTER URINALYSIS W/REFLEX MICROSCOPIC Stat 08/12/2007 3:10 AM DOUBLE END TENONER SETTER documented in this encounter Results * XR ABDOMEN 1 VW (08/12/2007 4:46 AM DOUBLE END TENONER SETTER) Anatomical Region Laterality Modality Abdomen Other 08/12/2007 4:46 AM DOUBLE END TENONER SETTER Narrative 08/12/2007 4:46 AM DOUBLE END TENONER SETTER Exam: KUB Date/Time of Exam: Aug 12, [...] * CBC WITH DIFFERENTIAL (08/12/2007 4:19 AM DOUBLE END TENONER SETTER) RBC 4.56 4.20 - 5.40 Mil/ul [facility] MCHC 33.8 30.0 - 35.0 g/dL [facility] LYMPHOCYTE ABSOLUTE 2.2 1.2 - 4.0 K/ul [facility] LYMPHOCYTES 25.6 24.0 - 44.0 % [facility] MCV 86.4 84.0 - 103.0 Fl [facility] BASOPHILS 0.7 0.0 - 1.0 % [facility] MPV 9.9 8.9 - 12.8 Fl [facility] BASOPHILS ABSOLUTE 0.1 0.0 - 0.2 K/ul [facility] HEMOGLOBIN 13.3 12.0 - 16.0 g/dL [facility] MONOCYTES 6.3 2.0 - 10.0 % [facility] RDW 14.1 11.0 - 14.5 % [facility] MONOCYTE ABSOLUTE 0.5 0.1 - 0.6 K/ul [facility] WBC 8.6 4.5 - 11.0 K/ul [facility] NEUTROPHILS 65.3 42.2 - 75.2 % [facility] MCH 29.2 27.0 - 34.0 pg [facility] NEUTROPHIL ABSOLUTE 5.6 2.0 - 8.0 K/ul [facility] HEMATOCRIT 39.4 36.0 - 46.0 % [facility] PLATELETS 233 140 - 440 K/ul [facility] EOSINOPHIL ABSOLUTE 0.2 0.0 - 0.7 K/ul [facility] EOSINOPHILS 2.1 0.0 - 7.0 % [facility] Blood specimen (specimen) 08/12/2007 4:19 AM DOUBLE END TENONER SETTER 08/12/2007 4:22 AM DOUBLE END TENONER SETTER us Amaury De La Rosa MD HEMATOLOGY ORDERABLES Final Resu lt [facility] [address] [place] [address] * (ABNORMAL) COMPREHENSIVE METABOLIC PANEL (08/12/2007 4:19 AM DOUBLE END TENONER SETTER) GLUCOSE 99 70 - 110 mg/dL [facility] ALKALINE PHOSPHATASE 134(H) 25 - 100 U/L [facility] CHLORIDE 108 95 - 110 mEq/L [facility] ALBUMIN/GLOBULIN RATIO 1.4 1.0 - 2.3 [facility] TOTAL PROTEIN 7.8 6.3 - 8.2 g/dL [facility] SODIUM 136 136 - 145 mEq/L [facility] BILIRUBIN TOTAL 0.2(L) 0.3 - 1.2 mg/dL [facility] BUN 20(H) 7 - 17 mg/dL [facility] CO2 23 22 - 32 mmol/l [facility] ANION GAP 9 9 - 20 mEq/L [facility] AST 20 8 - 33 U/L [facility] POTASSIUM 4.1 3.5 - 5.0 mEq/L [facility] GLOBULIN (CALC) 3.3 2.4 - 3.9 g/dL [facility] ALBUMIN 4.5 3.5 - 5.0 g/dL [facility] CREATININE 0.8 0.7 - 1.2 mg/dL [facility] ALT 24 4 - 36 IU/L [facility] CALCIUM 9.7 8.4 - 10.5 mg/dL [facility] OSMOLALITY, CALCULATED 283 275 - 295 mOsm/Kg [facility] Blood specimen (specimen) 08/12/2007 4:19 AM DOUBLE END TENONER SETTER 08/12/2007 4:22 AM DOUBLE END TENONER SETTER us Amaury De La Rosa MD CHEMISTRY ORDERABLES Final Resul t Performing Organization Address [facility] [[email or web address]] de Phone Number [facility] [address] [place] [address] * LIPASE (08/12/2007 4:19 AM DOUBLE END TENONER SETTER) Pathologist [facility] LIPASE 49 6 - 51 U/L [facility] Blood specimen (specimen) 08/12/2007 4:19 AM DOUBLE END TENONER SETTER 08/12/2007 4:22 AM DOUBLE END TENONER SETTER Amaury De La Rosa MD CHEMISTRY ORDERABLES Final Resul t Performing Organization Address [facility] Co de Phone Number [facility] [address] [place] [address] * URINALYSIS (08/12/2007 3:10 AM DOUBLE END TENONER SETTER) CLARITY UA Clear Clear [facility] GLUCOSE UA NEGATIVE NEGATIVE [facility] SPECIFIC GRAVITY UA 1.010 <=1.005 [facility] PH UA 7.0 5.0 - 9.0 [facility] BILIRUBIN UA NEGATIVE NEGATIVE [facility] LEUKOCYTE ESTERASE UA NEGATIVE NEGATIVE [facility] MICRO EXAM No No [facility] KETONES UA NEGATIVE NEGATIVE [facility] COLOR UA Yellow Straw [facility] PROTEIN UA NEGATIVE NEGATIVE [facility] BLOOD UA NEGATIVE NEGATIVE [facility] NITRITE UA NEGATIVE NEGATIVE [facility] UROBILINOGEN UA 0.2 0.2 [facility] Urine, clean catch 08/12/2007 3:10 AM DOUBLE END TENONER SETTER 08/12/2007 3:12 AM DOUBLE END TENONER SETTER us Physician Sj Ed URINE ORDERABLES Final Result Performing Organization Address City/State/[facility] Co de Phone Number [facility] [address] [place] [address] documented in this encounter Visit Diagnoses Not on filedocumented in this encounter Additional Health Concerns Infection Onset Date Last Indicated Resolved Time 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
--- OUTSIDE RECORDS SUMMARY | 2025-05-19 18:39 | XMS_ITS | Encounter Summary ---
Author Organization [facility] Address [address] [place] [address] Care Team Providers Care Wireless Watcher Name Role Phone Dara Tavera DATA OPERATIONS LEADER Primary Care Provider Encounter Details Date Type Department Care Team (Late st Contact Info) Description 07/31/2007 Emergency [facility] Emergency Department [address] [place] [address] Ed, Physician NO ADDRESS ON FILE Silvia Mayers MD [address] [place] [address] Social History Tobacco Use Types Packs/Day Years Used Date Smoking Tobacco: Never Assessed Comments Unknown Sex and Gender Information Value Date Recorded Sex Assigned at Not on file Legal Sex Female 5:22 AM BUFFING AND POLISHING WHEEL REPAIRER Gender Identity Not on file Sexual Orientation Not on file documented as of this encounter Plan of Treatment Not on file documented as of this encounter Procedures Procedure Name Priority Date/Time Associated Diagnosis Comments CT ABDOMEN PELVIS W CONTRAST Routine 08/01/2007 2:49 AM BUFFING AND POLISHING WHEEL REPAIRER CBC WITH DIFFERENTIAL Stat 07/31/2007 11:25 PM BUFFING AND POLISHING WHEEL REPAIRER COMPREHENSIVE METABOLIC PANEL Stat 07/31/2007 11:25 PM BUFFING AND POLISHING WHEEL REPAIRER URINALYSIS MICROSCOPY ONLY Stat 07/31/2007 11:20 PM BUFFING AND POLISHING WHEEL REPAIRER URINALYSIS W/REFLEX MICROSCOPIC Stat 07/31/2007 11:20 PM BUFFING AND POLISHING WHEEL REPAIRER documented in this encounter Results * CT ABDOMEN PELVIS W CONTRAST (08/01/2007 2:49 AM BUFFING AND POLISHING WHEEL REPAIRER) Anatomical Region Laterality Modality Abdomen Other 08/01/2007 2:49 AM BUFFING AND POLISHING WHEEL REPAIRER Narrative 08/01/2007 2:49 AM BUFFING AND POLISHING WHEEL REPAIRER CT of the abdomen and pelvis was [...] (ABNORMAL) CBC WITH DIFFERENTIAL (07/31/2007 11:25 PM BUFFING AND POLISHING WHEEL REPAIRER) LYMPHOCYTE ABSOLUTE 2.8 1.2 - 4.0 K/ul [facility] MCV 87.2 84.0 - 103.0 Fl [facility] MPV 10.0 8.9 - 12.8 Fl [facility] BASOPHILS ABSOLUTE 0.1 0.0 - 0.2 K/ul [facility] BASOPHILS 0.6 0.0 - 1.0 % [facility] HEMOGLOBIN 13.2 12.0 - 16.0 g/dL [facility] RDW 14.8(H) 11.0 - 14.5 % [facility] MONOCYTE ABSOLUTE 0.7(H) 0.1 - 0.6 K/ul [facility] MONOCYTES 6.7 2.0 - 10.0 % [facility] WBC 9.7 4.5 - 11.0 K/ul [facility] MCH 29.1 27.0 - 34.0 pg [facility] NEUTROPHIL ABSOLUTE 6.1 2.0 - 8.0 K/ul [facility] NEUTROPHILS 62.8 42.2 - 75.2 % [facility] HEMATOCRIT 39.6 36.0 - 46.0 % [facility] EOSINOPHILS 1.4 0.0 - 7.0 % [facility] PLATELETS 272 140 - 440 K/ul [facility] EOSINOPHIL ABSOLUTE 0.1 0.0 - 0.7 K/ul [facility] RBC 4.54 4.20 - 5.40 Mil/ul [facility] LYMPHOCYTES 28.5 24.0 - 44.0 % [facility] MCHC 33.3 30.0 - 35.0 g/dL [facility] Blood specimen (specimen) 07/31/2007 11:25 PM BUFFING AND POLISHING WHEEL REPAIRER 07/31/2007 11:32 PM BUFFING AND POLISHING WHEEL REPAIRER us Silvia Mayers MD HEMATOLOGY ORDERABLES Final Res ult [facility] [address] [place] [address] * (ABNORMAL) COMPREHENSIVE METABOLIC PANEL (07/31/2007 11:25 PM BUFFING AND POLISHING WHEEL REPAIRER) BUN 20(H) 7 - 17 mg/dL [facility] CO2 19(L) 22 - 32 mmol/l [facility] ANION GAP 11 9 - 20 mEq/L [facility] AST 14 8 - 33 U/L [facility] POTASSIUM 3.6 3.5 - 5.0 mEq/L [facility] GLOBULIN (CALC) 3.0 2.4 - 3.9 g/dL [facility] ALBUMIN 4.3 3.5 - 5.0 g/dL [facility] CREATININE 0.9 0.7 - 1.2 mg/dL [facility] CALCIUM 9.4 8.4 - 10.5 mg/dL [facility] ALT 21 4 - 36 IU/L [facility] OSMOLALITY, CALCULATED 291 275 - 295 mOsm/Kg [facility] GLUCOSE 113(H) 70 - 110 mg/dL [facility] CHLORIDE 114(H) 95 - 110 mEq/L [facility] ALKALINE PHOSPHATASE 154(H) 25 - 100 U/L [facility] ALBUMIN/GLOBULIN RATIO 1.4 1.0 - 2.3 [facility] SODIUM 140 136 - 145 mEq/L [facility] TOTAL PROTEIN 7.3 6.3 - 8.2 g/dL [facility] BILIRUBIN TOTAL 0.2(L) 0.3 - 1.2 mg/dL [facility] Blood specimen (specimen) 07/31/2007 11:25 PM BUFFING AND POLISHING WHEEL REPAIRER 07/31/2007 11:32 PM BUFFING AND POLISHING WHEEL REPAIRER Result [facility] Sivlia Mayers MD CHEMISTRY ORDERABLES Final Resu lt Performing Organization Address [facility] de Phone Number [facility] [address] [place] [address] * (ABNORMAL) URINALYSIS (07/31/2007 11:20 PM BUFFING AND POLISHING WHEEL REPAIRER) CLARITY UA Clear Clear [facility] SPECIFIC GRAVITY UA 1.031 <=1.005 [facility] GLUCOSE UA NEGATIVE NEGATIVE [facility] PH UA 6.0 5.0 - 9.0 [facility] BILIRUBIN UA NEGATIVE NEGATIVE [facility] LEUKOCYTE ESTERASE UA NEGATIVE NEGATIVE [facility] KETONES UA NEGATIVE NEGATIVE [facility] MICRO EXAM Yes(A) No [facility] COLOR UA Yellow Straw [facility] PROTEIN UA NEGATIVE NEGATIVE [facility] BLOOD UA NEGATIVE NEGATIVE [facility] NITRITE UA NEGATIVE NEGATIVE [facility] UROBILINOGEN UA 0.2 0.2 [facility] Urine, clean catch 07/31/2007 11:20 PM BUFFING AND POLISHING WHEEL REPAIRER 07/31/2007 11:23 PM BUFFING AND POLISHING WHEEL REPAIRER Silvia Mayers MD URINE ORDERABLES Final Result Performing Organization Address [facility] de Phone Number [facility] [address] [place] [address] * URINALYSIS MICROSCOPY ONLY (07/31/2007 11:20 PM BUFFING AND POLISHING WHEEL REPAIRER) HYALINE CAST None Seen 0 - 2 [facility] WBC URINE None Seen 0 - 2 [facility] BACTERIA UA None Seen None Seen [facility] RBC UA None Seen 0 - 2 [facility] Urine specimen (specimen) 07/31/2007 11:20 PM BUFFING AND POLISHING WHEEL REPAIRER 07/31/2007 11:23 PM BUFFING AND POLISHING WHEEL REPAIRER Silvia Mayers MD URINE ORDERABLES Final Result [facility] [address] [place] [address] documented in this encounter Visit Diagnoses Not on filedocumented in this encounter Additional Health Concerns Infection Onset Date Last Indicated Resolved Time 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
--- OUTSIDE RECORDS SUMMARY | 2025-05-19 18:39 | XMS_ITS | Encounter Summary ---
Author Organization [facility] Address [address] [place] [address] Care Team Providers Care Hoop Punch Operator Helper Name Role Phone Dara Tavera Primary Care Provider [phone] Encounter Details Date Type Department Care Team (Late st Contact Info) Description 07/16/[address] [facility] [address] [place] [address] Tej Will MD [address] [address] Social History Tobacco Use Types Packs/Day Years Used Date Smoking Tobacco: Never Assessed Comments Unknown Sex and Gender Information Value Date Recorded Sex Assigned at Not on file Legal Sex Female 5:22 AM CULL GRADER Gender Identity Not on file Sexual Orientation Not on file documented as of this encounter Plan of Treatment Not on file documented as of this encounter Visit Diagnoses Not on filedocumented in this encounter Additional Health Concerns Infection Onset Date Last Indicated Resolved Time 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
--- OUTSIDE RECORDS SUMMARY | 2025-05-19 18:39 | XMS_ITS | Encounter Summary ---
Author Organization [facility] Address [address] [place] [address] Care Team Providers Care Events And Promotions Assistant Name Role Phone Dara Tavera Primary Care Provider Encounter Details Date Type Department Care Team (Late st Contact Info) Description 08/13/2007 Outpatient [facility] [address] [place] [address] Tej Will MD [address] [address] Social History Tobacco Use Types Packs/Day Years Used Date Smoking Tobacco: Never Assessed Comments Unknown Sex and Gender Information Value Date Recorded Sex Assigned at Not on file Legal Sex Female 5:22 AM MEDICAL PHYSICS RESEARCHER Gender Identity Not on file Sexual Orientation Not on file documented as of this encounter Plan of Treatment Not on file documented as of this encounter Visit Diagnoses Not on filedocumented in this encounter Additional Health Concerns Infection Onset Date Last Indicated Resolved Time 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
--- OUTSIDE RECORDS SUMMARY | 2025-05-19 18:39 | XMS_ITS | Encounter Summary ---
Author Organization [facility] Address [address] [place] [address] Care Team Providers Care Demand Generator Manager Name Role Phone Dara Tavera Primary Care Provider Encounter Details Date Type Department Care Team (Late st Contact Info) Description 07/03/2007 [facility]patient [facility] [address] [place] [address] Tej Will MD [address] [address] Social History Tobacco Use Types Packs/Day Years Used Date Smoking Tobacco: Never Assessed Comments Unknown Sex and Gender Information Value Date Recorded Sex Assigned at Not on file Legal Sex Female 5:22 AM CASINO CAGE CASHIER Gender Identity Not on file Sexual Orientation Not on file documented as of this encounter Plan of Treatment Not on file documented as of this encounter Visit Diagnoses Not on filedocumented in this encounter Additional Health Concerns Infection Onset Date Last Indicated Resolved Time 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
--- OUTSIDE RECORDS SUMMARY | 2025-05-19 18:39 | XMS_ITS | Clinical Summary ---
Author Organization [facility] Address [address] [place] [address] Care Team Providers Care Drop Wirer Name Role Phone Sally Dong MD Primary Care Provider [phone] Allergies Active Allergy Reactions Criticality Noted Date Comments Adhesive Rash Low 02/12/2009 Codeine Nausea and Vomiting Low 02/12/2009 Duloxetine Other (See Comments) 02/24/2015 Fentanyl Hives High 11/07/2019 Fluoxetine Unknown 10/20/2018 Gabapentin Unknown,Hallucination Low 02/12/2009 Haloperidol Unknown 01/04/2022 Tardive dyskinesia Ketorolac Tromethamine Other (See Comments) Low Adverse drug reaction [place] Unknown 02/12/2009 Other reaction(s): shakey Metoclopramide Hcl [...] for Nausea/Emesis. Active naloxone (NARCAN) 4 mg/spray [place], Non-Aerosol EMERGENCY USE ONLY: Administer 1 spray [...] Encounters Date Type Department Care Team Description 05/08/2025 5:30 AM PLANT MANAGER - 05/08/2025 11:59 PM PLANT MANAGER Hospital Encounter [facility] Emergency Medical Services [place] [address] [address] [facility] Discharge Disposition: [place] [facility] 05/01/2025 5:15 AM PLANT MANAGER - 05/01/2025 11:59 PM PLANT MANAGER Hospital Encounter [facility] Emergency Medical Services [place] [id number] [place] [address] [facility] Discharge Disposition: [facility] 04/29/2025 6:20 AM PLANT MANAGER - 04/29/2025 11:59 PM PLANT MANAGER Hospital Encounter [facility] Emergency Medical Services [place] [address] [address] [facility] 04/20/2025 5:25 AM PLANT MANAGER - 04/20/2025 11:59 PM PLANT MANAGER Hospital Encounter [facility] [address] [place] [address] Ambulance, [facility] Discharge Disposition: [facility] 04/19/2025 8:27 PM CDT - 04/19/2025 9:59 PM CDT Emergency [facility] Emergency Medicine [address] [facility] [address] [place] [address] Tommy Matthews MD Sprain of right shoulder, unspecified shoulder sprain type, initial encounter (Primary Dx) Discharge Disposition: Home or Self Care 04/19/2025 Travel 04/10/2025 1:07 PM CDT - 04/10/2025 11:59 PM CDT Hospital Encounter [facility] [address] [place] [address] Dara Tavera FNP Discharge Disposition: Home or Self Care 04/10/2025 Orders Only [facility] Admitting [address] [facility] [address] [place] [address] Dara Tavera, BALANCE ASSEMBLER Low back pain with sciatica, sciatica laterality unspecified, unspecified back pain laterality, unspecified chronicity (Primary Dx) 04/07/2025 10:00 PM CDT - 04/08/2025 12:56 AM CDT Emergency [facility] Emergency Medicine [address] [place] [address] Tommy Matthews MD Right flank pain (Primary Dx) Discharge Disposition: Home or Self Care 04/07/2025 Travel 03/23/2025 12:30 AM CDT - 03/23/2025 11:59 PM CDT Hospital Encounter [facility] [address] [facility] [address] [place] [address] Ambulance, [facility] Discharge Disposition: [facility] 03/18/2025 8:36 AM CDT - 03/18/2025 10:03 AM CDT Emergency [facility] Emergency Medicine [address] [facility] [address] [place] [address] Neck pain (Primary Dx) Discharge Disposition: Home or Self Care 03/08/2025 5:56 PM CDT - 03/08/2025 9:25 PM CDT Emergency [facility] Emergency Medicine [address] [facility] [address] [place] [address] Anand Bower DO Flank pain (Primary Dx) Discharge Disposition: Home or Self Care 03/08/2025 Travel 03/02/2025 1:05 PM CDT - 03/02/2025 11:59 PM CDT Hospital [facility] Emergency Medical Services [place] [address] [facility] [address] [place] [address] Ambulance, [facility] Discharge Disposition: [facility] 02/20/2025 8:40 PM CDT - 02/20/2025 10:04 PM CDT Emergency [facility] Emergency Medicine [address] [facility] [address] [place] [address] Tommy Matthews MD Chronic neck pain (Primary Dx) Discharge Disposition: Home or Self Care 02/20/2025 Travel from Last 3 Months Immunizations Immunization [...] asked 05/05/2019 How often do you attend jain or bahai serv ices? Not asked 05/05/2019 Do you belong to any clubs o r organizations such as jain groups, unions, fraternal or athletic groups, or [...] worry about transportation for future doctor visits, picket labor union medication, etc.? No 2024 Housing Stability Answer [...] PM CDT Legal Sex Female 2:06 AM PLANT MANAGER Gender Identity Female 03/25/2024 4:14 PM [...] W/REFLEX MICROSCOPIC Stat 03/08/2025 6:03 PM CDT HEMOGLOBIN A1C Routine 06/17/2018 7:12 AM PLANT MANAGER from Last 3 Months or Most [...] abnormality. Moderate osteoarthritis of the acromioclavicular joint. us Tommy Matthews MD DIAGNOSTIC IMAGING ORDER [...] spine degenerative changes and scoliosis. Dara Tavera BALANCE ASSEMBLER DIAGNOSTIC IMAGING ORDERABL ES Final Result * (ABNORMAL) CBC WITH DIFFERENTIAL (04/07/2025 11:58 PM CDT) Only the most recent of2 resultswithin the time period is included. WBC 16.1(H) 4.0 - 10.0 K/uL 04/08/2025 12:26 AM [facility] RBC 3.99 3.93 - 5.22 M/uL 04/08/2025 12:26 AM [facility] HEMOGLOBIN 13.3 11.2 - 15.7 g/dL 04/08/2025 12:26 AM [facility] HEMATOCRIT 38.3 34.1 - 44.9 % 04/08/2025 12:26 AM [facility] MCV 96.0(H) 79.4 - 94.8 fL 04/08/2025 12:26 AM [facility] MCH 33.3(H) 25.6 - 32.2 pg 04/08/2025 12:26 AM [facility] MCHC 34.7 32.2 - 35.5 g/dL 04/08/2025 12:26 AM [facility] RDW 12.7 11.0 - 14.5 % 04/08/2025 12:26 AM [facility] RDW-STDEV 44.9 36.9 - 56.9 fL 04/08/2025 12:26 AM [facility] PLATELETS 234 163 - 337 K/uL 04/08/2025 12:26 AM [facility] MPV 9.8(L) 10.0 - 14.8 fL 04/08/2025 12:26 AM [facility] NEUTROPHILS 75(H) 34 - 71 % 04/08/2025 12:26 AM [facility] LYMPHOCYTES 16(L) 19 - 52 % 04/08/2025 12:26 AM [facility] MONOCYTES 6 5 - 13 % 04/08/2025 12:26 AM [facility] EOSINOPHILS 2 1 - 6 % 04/08/2025 12:26 AM [facility] BASOPHILS 1 0 - 1 % 04/08/2025 12:26 AM [facility] IMMATURE GRANULOCYTES 0 % 04/08/2025 12:26 AM [facility] NEUTROPHIL ABSOLUTE 12.05(H) 1.56 - 6.13 K/uL 04/08/2025 12:26 AM [facility] LYMPHOCYTE ABSOLUTE 2.57 1.20 - 3.40 K/uL 04/08/2025 12:26 AM [facility] MONOCYTE ABSOLUTE 0.99(H) 0.24 - 0.36 K/uL 04/08/2025 12:26 AM [facility] EOSINOPHIL ABSOLUTE 0.27 0.04 - 0.36 K/uL 04/08/2025 12:26 AM CDT [facility] BASOPHILS ABSOLUTE 0.12(H) 0.01 - 0.08 K/uL 04/08/2025 12:26 AM CDT [facility] IMMATURE GRANULOCYTES ABSOLUTE 0.05 K/uL 04/08/2025 12:26 AM CDT [facility] Blood BLOOD SPECIMEN / Unknown Collection / Unknown 04/07/2025 11:58 PM CDT 04/08/2025 12:22 AM CDT us Tommy Matthews MD HEMATOLOGY ORDERABLES Fi nal Result Performing Organization Address City/[facility]/ZIP Co de Phone Number [facility] CLIA # [id number] [address] [place] [phone] * LIPASE (04/07/2025 11:58 PM CDT) Only the most recent of2 resultswithin the time period is included. LIPASE 20 13 - 60 U/L 04/08/2025 12:42 AM CDT [facility] Blood BLOOD SPECIMEN / Unknown Collection / Unknown 04/07/2025 11:58 PM CDT 04/08/2025 12:22 AM CDT us Tommy Matthews MD CHEMISTRY ORDERABLES Fin al Result Performing Organization Address City/[facility]/ZIP Co de Phone Number [facility] CLIA # [id number] [address] [place] [phone] * (ABNORMAL) COMPREHENSIVE METABOLIC PANEL (04/07/2025 11:58 PM CDT) Only the most recent of2 resultswithin the time period is included. SODIUM 134(L) 136 - 145 mmol/L 04/08/2025 12:42 AM CDT [facility] POTASSIUM 3.7 3.5 - 5.1 mmol/L 04/08/2025 12:42 AM CDT [facility] CHLORIDE 99 98 - 107 mmol/L 04/08/2025 12:42 AM [facility] CO2 24 22 - 29 mmol/L 04/08/2025 12:42 AM [facility] CALCIUM 9.9 8.6 - 10.0 mg/dL 04/08/2025 12:42 AM [facility] BUN 14 6 - 20 mg/dL 04/08/2025 12:42 AM [facility] CREATININE 0.97(H) 0.51 - 0.95 mg/dL 04/08/2025 12:42 AM [facility] GLUCOSE 100(H) 74 - 99 mg/dL 04/08/2025 12:42 AM [facility] TOTAL PROTEIN 6.7 6.6 - 8.7 g/dL 04/08/2025 12:42 AM [facility] ALBUMIN 4.1 3.5 - 5.2 g/dL 04/08/2025 12:42 AM [facility] BILIRUBIN TOTAL 0.2 0.0 - 1.2 mg/dL 04/08/2025 12:42 AM [facility] ALKALINE PHOSPHATASE 121(H) 35 - 104 U/L 04/08/2025 12:42 AM [facility] AST 16 0 - 35 U/L 04/08/2025 12:42 AM [facility] ALT 10 0 - 35 U/L 04/08/2025 12:42 AM [facility] GFR >60 >=60 mL/min/1.7 3 sq meter 04/08/2025 12:42 AM [facility] Comment:eGFR calculated with 2020 CKD-EPI equation. Vegetarian diet, extremely high or low muscle mass, and may affect results. Cystatin C with Glomerular Filtration Rate is a suitable alternative for these patients. ANION GAP 11 5 - 20 mmol/L 04/08/2025 12:42 AM [facility] Blood BLOOD SPECIMEN / Unknown Collection / Unknown 04/07/2025 11:58 PM CDT 04/08/2025 12:22 AM CDT us Tommy Matthews MD CHEMISTRY ORDERABLES Fin al Result [facility] # [id number] [address] [place] [phone] * CT ABDOMEN PELVIS WO CONTRAST (04/07/2025 [...] - 2 /hpf 04/07/2025 9:37 PM CDT [facility] RBC UA 0-2 0 - 2 /hpf 04/07/2025 9:37 PM CDT [facility] BACTERIA UA Negative Negative /hpf 04/07/2025 9:37 PM CDT [facility] EPITHELIAL CELLS, URINE 0-5 0 - 5 /hpf 04/07/2025 9:37 PM CDT [facility] Urine URINE SPECIMEN OBTAINED BY CLEAN CATCH PROCEDURE / Unknown Collection / Unknown 04/07/2025 9:30 PM CDT 04/07/2025 9:34 PM CDT Tommy Matthews MD URINE ORDERABLES Final R esult [facility] CLIA # [id number] [address] [place] [address] [id number] * (ABNORMAL) URINALYSIS WITH REFLEX MICROSCOPIC (04/07/2025 9:30 PM CDT) Only the most recent of2 resultswithin the time period is included. COLOR UA Yellow Pale to Dark Yellow 04/07/2025 9:37 PM CDT [facility] CLARITY UA Clear Clear 04/07/2025 9:37 PM CDT [facility] SPECIFIC GRAVITY UA <=1.005 1.003 - 1.035 04/07/2025 9:37 PM CDT [facility] PH UA 6.0 5.0 - 8.0 04/07/2025 9:37 PM CDT [facility] LEUKOCYTE ESTERASE UA 1+(A) Negative 04/07/2025 9:37 PM CDT [facility] NITRITE UA Negative Negative 04/07/2025 9:37 PM CDT [facility] PROTEIN UA Negative Negative 04/07/2025 9:37 PM CDT [facility] GLUCOSE UA Negative Negative 04/07/2025 9:37 PM T [facility] KETONES UA Negative Negative 04/07/2025 9:37 PM T [facility] UROBILINOGEN UA 0.2 <2.0 mg/dL 9:37 PM T [facility] BILIRUBIN UA Negative Negative 04/07/2025 9:37 PM T [facility] BLOOD UA Negative Negative 04/07/2025 9:37 PM T [facility] Urine URINE SPECIMEN OBTAINED BY CLEAN CATCH PROCEDURE / Unknown Collection / Unknown 04/07/2025 9:30 PM CDT 04/07/2025 9:34 PM CDT us Tommy Matthews MD URINE ORDERABLES Final R esult [facility] CLIA # [id number] [address] [place] [phone] * XR ABDOMEN 1 VW (03/08/2025 8:06 PM CDT) Anatomical Region Laterality Modality Abdomen Computed Radiogr aphy 03/08/2025 8:06 PM CDT Impressions 03/08/2025 9:17 PM CDT IMPRESSION: Nonobstructive bowel gas pattern. Moderate colonic stool burden. No renal calculi identified. MACRO: None Narrative 03/08/2025 9:17 PM CDT EXAMINATION: XR ABDOMEN 1 VW CLINICAL HISTORY: ASSOCIATED DIAGNOSIS: Kidney Calculus ORDERING PROVIDER: SEA LEON TECHNKATELIN NOTE: COMPARISON: Abdominal radiograph 09/21/2024 [...] HISTORY: ASSOCIATED DIAGNOSIS: Kidney Calculus ORDERING PROVIDER: SEA LEON TECHNKATELIN NOTE: COMPARISON: Abdominal radiograph 09/21/2024 [...] burden. No renal calculi identified. MACRO: None Sea Leon MD DIAGNOSTIC IMAGING OR DERABLES Final Result * (ABNORMAL) DRUG SCREEN, URINE (03/08/2025 6:03 PM CDT) CANNABINOIDS QUAL, URINE Negative Negative 03/08/2025 6:33 PM CDT [facility] PCP QUAL, URINE Negative Negative 6:33 PM CDT [facility] COCAINE QUAL URINE Negative Negative 2024 6:33 PM CDT [facility] METHAMPHETAMINE QUAL, URINE Negative Negative 03/08/2025 6:33 PM CDT [facility] OPIATE QUAL, URINE Presumptive Positive(A) Negative 03/08/2025 6:33 PM CDT [facility] AMPHETAMINE QUAL, URINE Negative Negative 03/08/2025 6:33 PM CDT [facility] BENZODIAZEPINE QUAL, URINE Presumptive Positive(A) Negative 03/08/2025 6:33 PM CDT [facility] TRICYCLICS QUAL, URINE Presumptive Positive(A) Negative 03/08/2025 6:33 PM CDT [facility] METHADONE QUAL, URINE Negative Negative 03/08/2025 6:33 PM CDT [facility] BARBITURATE QUAL, URINE Negative Negative 03/08/2025 6:33 PM CDT [facility] OXYCODONE QUAL, URINE Negative Negative 03/08/2025 6:33 PM CDT [facility] Urine URINE SPECIMEN OBTAINED BY CLEAN CATCH PROCEDURE / Unknown Collection / Unknown 03/08/2025 6:03 PM CDT 03/08/2025 6:17 PM CDT [facility] - 03/08/2025 6:33 PM CDT This test [...] Anand Bower DO URINE ORDERABLES Final Result [facility] CLIA # [id number] [address] [place] [address] [id number] * HEMOGLOBIN A1C (06/17/2018 7:12 AM PLANT MANAGER) HEMOGLOBIN A1C 5.2 4.8 - 5.9 % 06/17/2018 9:37 AM PLANT MANAGER [facility] EST. AVG GLUCOSE, A1C 103 mg/dL 06/17/2018 9:37 AM [facility] Blood Venipuncture / Unknown 06/17/2018 7:12 AM PLANT MANAGER 06/17/2018 7:13 AM PLANT MANAGER Narrative [facility] - 06/17/2018 9:37 AM PLANT MANAGER If not available from last three months. HGB A1C INTERPRETATION NORMAL: <5.7% PRE-DIABETES: 5.7 - 6.4% DIABETES: 6.5% OR GREATER Benedicto Mcgill MD CHEMISTRY ORDERABLES Final Result [facility] CLIA # [id number] [address] [place] [address] [facility] CLIA # [id number] [address] [place] [address] from Last 3 Months or Most Recently Relevant to Health Maintenance Insurance [place] Advance Directives For more information, please contact: [phone] Documents on File Type Date Recorded Patient Supplies Packer Expl anation Advance Directive POA 02/23/2024 3:51 [...] 1:52 AM 10/27/2021 2:07 PM Care Teams Drop Wirer Relationship Specialty Start Date End Date Sally Dong MD [address] [phone] PCP - General Family Practice 04/07/22
--- OUTSIDE RECORDS SUMMARY | 2025-05-19 18:39 | XMS_ITS | Encounter Summary ---
Author Organization [facility] Address [address] [place] [address] Care Team Providers Care Ammonia Distiller Name Role Phone Dara Tavera AMANDEEP Primary Care Provider Encounter Details Date Type Department Care Team (Late st Contact Info) Description 07/22/2007 Emergency [facility] Emergency Department [address] [place] [address] Ed, Physician NO ADDRESS ON FILE Amaury De La Rosa MD NO ADDRESS ON FILE Social History Tobacco Use Types Packs/Day Years Used Date Smoking Tobacco: Never Assessed Comments Unknown Sex and Gender Information Value Date Recorded Sex Assigned at Not on file Legal Sex Female 5:22 AM MANAGER PART Gender Identity Not on file Sexual Orientation Not on file documented as of this encounter Plan of Treatment Not on file documented as of this encounter Procedures Procedure Name Priority Date/Time Associated Diagnosis Comments URINALYSIS MICROSCOPY ONLY Routine 07/22/2007 12:38 PM MANAGER PART URINALYSIS W/REFLEX MICROSCOPIC Routine 07/22/2007 12:38 PM MANAGER PART URINE CULTURE Stat 07/22/2007 12:38 PM MANAGER PART documented in this encounter Results * (ABNORMAL) URINALYSIS MICROSCOPY ONLY (07/22/2007 12:38 PM MANAGER PART) WBC URINE None Seen 0 - 2 INTERFACE SYSTEM RBC UA None Seen 0 - 2 INTERFACE SYSTEM HYALINE CAST None Seen 0 - 2 INTERFA CE SYSTEM BACTERIA UA Few(A) None Seen INTERFAC E SYSTEM 07/22/2007 12:3 8 PM MANAGER PART Amaury De La Rosa MD URINE ORDERABLES Edited Performing Organization Address [facility] Phone Number INTERFACE SYSTEM Refer to clinic/hospital department * (ABNORMAL) URINALYSIS (07/22/2007 12:38 PM MANAGER PART) COLOR UA Dark Yellow Straw INTERFAC E [...] No INTERFACE SYSTEM 07/22/2007 12:3 8 PM MANAGER PART Amaury De La Rosa MD URINE ORDERABLES Edited Performing Organization Address [facility] Phone Number INTERFACE SYSTEM Refer to clinic/hospital department * URINE CULTURE (07/22/2007 12:38 PM MANAGER PART) FINAL REPORT No growth INTERFA CE SYSTEM 07/22/2007 12:3 8 PM MANAGER PART 07/22/2007 3:01 PM MANAGER PART Result [facility] Amaury De La Rosa MD MICROBIOLOGY - GENERAL ORDERABLE S Final Result Performing Organization Address [facility] Phone Number INTERFACE SYSTEM Refer to clinic/hospital department documented in this encounter Visit Diagnoses Not on filedocumented in this encounter Additional Health Concerns Infection Onset Date Last Indicated Resolved Time 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
--- OUTSIDE RECORDS SUMMARY | 2025-05-19 18:39 | XMS_ITS | Encounter Summary ---
Author Organization [facility] Address [address] [place] [address] Care Team Providers Care Switch Foreman Name Role Phone Dara Tavera AMANDEEP Primary Care Provider Encounter Details Date Type Department Care Team (Latest Contact Info) Description 07/30/1997 Outpatient Historical [facility] Roney Arora MD [address] [facility] [address] [place] [address] Bipolar I disorder, most recent episode (or current) unspecified (CMS/HCC) (Primary Dx); Unspecified osteomyelitis, other specified site; Nausea with vomiting Social History Tobacco Use Types Packs/Day Years Used Date Smoking Tobacco: Never Assessed Comments Unknown Sex and Gender Information Value Date Recorded Sex Assigned at Not on file Legal Sex Female 5:22 AM PLATE AND WELD INSPECTOR Gender Identity Not on file Sexual [...] Resolved 11/04/2013 11/04/2013 8 10:33 AM PLATE AND WELD INSPECTOR R/O COVID-19 12/25/2019 12/25/2019 12/26/2019 2:46 PM CDT R/O COVID-19 05/09/2020 05/09/2020 05/09/2020 12:1 7 PM PLATE AND WELD INSPECTOR documented as of this encounter Care Teams Switch Foreman Relationship Specialty Start Date End Date Dara Tavera FNP [address] [place] [address] PCP - General NURSE PRACTITIONER 10/13/18 documented as of this encounter
--- OUTSIDE RECORDS SUMMARY | 2025-05-19 18:39 | XMS_ITS | Encounter Summary ---
Author Organization [facility] Address [address] [place] [address] Care Team Providers Care Trust Operations Assistant Name Role Phone Dara Tavera PASTRY MIXER Primary Care Provider Encounter Details Date Type Department Care Team (Latest Contact Info) Description 09/03/[address] [facility] Behavior[facility] Clinical Services [address] [place] [address] Hood Kerr Jr., MD [address] [place] [address] SCHIZOAFFECTIVE-UNSP EC (CMS/HCC) (Primary Dx) Social History Tobacco Use Types Packs/Day Years Used Date Smoking Tobacco: Never Assessed Comments Unknown Sex and Gender Information Value Date Recorded Sex Assigned at Not on file Legal Sex Female 5:22 AM PACKING CHECKER Gender Identity Not on file Sexual Orientation Not on file documented as of this encounter Plan of Treatment Not on file documented as of this encounter Visit Diagnoses Diagnosis Schizoaffective disorder, unspecified condition (CMS/HCC)- Primary Schizoaffective disorder, unspecified condition documented in this encounter Additional Health Concerns Infection Onset Date Last Indicated Resolved Time 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
--- OUTSIDE RECORDS SUMMARY | 2025-05-19 18:39 | XMS_ITS | Encounter Summary ---
Author Organization [facility] Address [address] [place] [address] Care Team Providers Care Extension Service Specialist Name Role Phone Dara Tavera AMANDEEP Primary Care Provider Encounter Details Date Type Department Care Team (Latest Contact Info) Description 09/24/2002 Outpatient Historical [facility] 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, including tongue documented in this encounter Additional Health Concerns Infection Onset Date Last Indicated Resolved Time 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
--- OUTSIDE RECORDS SUMMARY | 2025-05-19 18:39 | XMS_ITS | Encounter Summary ---
Author Organization [facility] Address [address] [place] [address] Care Team Providers Care Landscape Account Manager Name Role Phone Dara Tavera AMANDEEP Primary Care Provider [phone] Encounter Details Date Type Department Care Team (Latest Contact Info) Description 02/28/2008 Outpatient Historical [facility] Ambulance [address] [place] [address] AMBULANCE, [facility] Blood in Stool; Nausea Alone; Unspecified [...] on file Legal Sex Female 5:22 AM DEALER SALES MANAGER Gender Identity Not on file Sexual [...] 10/30/13 Resolved 11/04/2013 11/04/201307/26/201 8 10:33 AM DEALER SALES MANAGER R/O COVID-19 12/25/2019 12/25/2019 12/26/2019 2:46 PM CDT R/O COVID-19 05/09/2020 05/09/2020 05/09/2020 12:1 7 PM DEALER SALES MANAGER documented as of this encounter Care Teams Landscape Account Manager Relationship Specialty Start Date End Date Dara Tavera FNP [address] [place] [address] PCP - General NURSE PRACTITIONER 10/13/18 documented as of this encounter
--- OUTSIDE RECORDS SUMMARY | 2025-05-19 18:39 | XMS_ITS | Encounter Summary ---
Author Organization [facility] Address [address] [place] [address] Care Team Providers Care Supervisor Boatbuilders Wood Name Role Phone Dara Tavera Primary Care Provider Encounter Details Date Type Department Care Team (Latest Contact Info) Description 08/19/2003 Outpatient Historical [facility] Urology- [address] Entrance B, 3rd [place] [address] Hossein Blair MD NO ADDRESS ON FILE FEMALE STRESS INCONTINENCE (Primary Dx); REMOVAL INT FIXATION DEVICE Social History Tobacco Use Types Packs/Day Years Used Date Smoking Tobacco: Never Assessed Comments Unknown Sex and Gender Information Value Date Recorded Sex Assigned at Not on file Legal Sex Female 5:22 AM WRAPPER OFF Gender Identity Not on file Sexual Orientation Not on file documented as of this encounter Plan of Treatment Not on file documented as of this encounter Visit Diagnoses Diagnosis Female stress incontinence- Primary Encounter for removal of internal fixation device documented in this encounter Additional Health Concerns Infection Onset Date Last Indicated Resolved Time 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
--- OUTSIDE RECORDS SUMMARY | 2025-05-19 18:39 | XMS_ITS | Encounter Summary ---
Author Organization [facility] Address [address] [place] [address] Care Team Providers Care Correctional Corporal Name Role Phone Dara Tavera Primary Care Provider [phone] Encounter Details Date Type Department Care Team (Late st Contact Info) Description 07/12/2007 Emergency [facility] Emergency Department [address] [place] [address] Ed, Physician NO ADDRESS ON FILE Oniel Sainz MD [address] [place] [address] Social History Tobacco Use Types Packs/Day Years Used Date Smoking Tobacco: Never Assessed Comments Unknown Sex and Gender Information Value Date Recorded Sex Assigned at Not on file Legal Sex Female 5:22 AM BRANCH SERVICE ASSOCIATE Gender Identity Not on file Sexual Orientation Not on file documented as of this encounter Plan of Treatment Not on file documented as of this encounter Visit Diagnoses Not on filedocumented in this encounter Additional Health Concerns Infection Onset Date Last Indicated Resolved Time VRE Comment:Urine 10/30/13 Resolved 11/04/2013 11/04/2013 8 10:33 AM BRANCH SERVICE ASSOCIATE R/O COVID-19 12/25/2019 12/25/2019 12/26/2019 2:46 PM CDT R/O COVID-19 05/09/2020 05/09/2020 05/09/2020 12:1 7 PM BRANCH SERVICE ASSOCIATE documented as of this encounter Care Teams Correctional Corporal Relationship Specialty Start Date End Date Dara Tavera FNP [address] [place] [phone] PCP - General NURSE PRACTITIONER 10/13/18 documented as of this encounter
--- OUTSIDE RECORDS SUMMARY | 2025-05-19 18:39 | XMS_ITS | Encounter Summary ---
Author Organization [facility] Address [address] [place] [address] Care Team Providers Care Senior Industrial Engineer Name Role Phone Dara Tavera Primary Care Provider Encounter Details Date Type Department Care Team (Latest Contact Info) Description 03/07/2019 Ancillary Orders [facility] Centralized Scheduling [address] [place] [address] Dara Tavera FNP [address] [place] [address] Screening breast examination Social History Tobacco Use Types Packs/Day Years Used Date Smoking Tobacco: Every Day Cigarettes Smokeless Tobacco: Never Comments:2 cigarettes daily Alcohol Use Standard Drinks/Week Comments No 0 (1 standard drink = 0.6 oz pur e alcohol) Comments No Sex and Gender Information Value Date Recorded Sex Assigned at Not on file Legal Sex Female 5:22 AM TENSIONING MACHINE OPERATOR Gender Identity Not on file [...] COVID-19 05/09/2020 05/09/2020 05/09/2020 12:1 7 PM TENSIONING MACHINE OPERATOR documented as of this encounter Care Teams Senior Industrial Engineer Relationship Specialty Start Date End Date Dara Tavera FNP [address] [place] [phone] PCP - General NURSE PRACTITIONER 10/13/18 documented as of this encounter
--- OUTSIDE RECORDS SUMMARY | 2025-05-19 18:39 | XMS_ITS | Encounter Summary ---
Author Organization [facility] Address [address] [place] [address] Care Team Providers Care Heart Coordinator Name Role Phone Dara Tavera Primary Care Provider Encounter Details Date Type Department Care Team (Late st Contact Info) Description 08/11/2007 Emergency [facility] Emergency Department [address] [place] [address] Ed, Physician NO ADDRESS ON FILE Social History Tobacco Use Types Packs/Day Years Used Date Smoking Tobacco: Never Assessed Comments Unknown Sex and Gender Information Value Date Recorded Sex Assigned at Not on file Legal Sex Female 5:22 AM MARK UP DESIGNER Gender Identity Not on file Sexual Orientation Not on file documented as of this encounter Plan of Treatment Not on file documented as of this encounter Visit Diagnoses Not on filedocumented in this encounter Additional Health Concerns Infection Onset Date Last Indicated Resolved Time VRE Comment:Urine 10/30/13 Resolved 11/04/2013 11/04/2013 8 10:33 AM MARK UP DESIGNER R/O COVID-19 12/25/2019 12/25/2019 12/26/2019 2:46 PM CDT R/O COVID-19 05/09/2020 05/09/2020 05/09/2020 12:1 7 PM MARK UP DESIGNER documented as of this encounter Care Teams Heart Coordinator Relationship Specialty Start Date End Date Dara Tavera FNP [address] [place] [phone] PCP - General NURSE PRACTITIONER 10/13/18 documented as of this encounter
--- OUTSIDE RECORDS SUMMARY | 2025-05-19 18:39 | XMS_ITS | Encounter Summary ---
Author Organization [facility] Address [address] [place] [address] Care Team Providers Care Department Clerk Name Role Phone Dara Tavera AMANDEEP Primary Care Provider Encounter Details Date Type Department Care Team (Late st Contact Info) Description 07/20/2007 Emergency [facility] Emergency Department [address] [place] [address] Ed, Physician NO ADDRESS ON FILE Jorge Danielson III G DO NO ADDRESS ON FILE Social History Tobacco Use Types Packs/Day Years Used Date Smoking Tobacco: Never Assessed Comments Unknown Sex and Gender Information Value Date Recorded Sex Assigned at Not on file Legal Sex Female 5:22 AM NAIL FEEDER Gender Identity Not on file Sexual Orientation Not on file documented as of this encounter Plan of Treatment Not on file documented as of this encounter Procedures Procedure Name Priority Date/Time Associated Diagnosis Comments URINALYSIS W/REFLEX MICROSCOPIC Routine 07/21/2007 1:27 AM NAIL FEEDER XR ABDOMEN 1 VW Stat 07/21/2007 1:21 AM NAIL FEEDER documented in this encounter Results * URINALYSIS (07/21/2007 1:27 AM NAIL FEEDER) COLOR UA Yellow Straw INTERFACE SYSTEM [...] No No INTERFACE SYSTEM 07/21/2007 1:27 AM NAIL FEEDER Jorge Colinegers III, DO URINE ORDERABLES Edited INTERFACE SYSTEM Refer to clinic/hospital department * XR ABDOMEN 1 VW (07/21/2007 1:21 AM NAIL FEEDER) Anatomical Region Laterality Modality Abdomen Other 07/21/2007 1:21 AM NAIL FEEDER Narrative 07/21/2007 1:21 AM NAIL FEEDER Surgical clips are present in the gallbladder [...] 10/30/13 Resolved 11/04/2013 11/04/2013 8 10:33 AM NAIL FEEDER R/O COVID-19 12/25/2019 12/25/2019 12/26/2019 2:46 PM CDT R/O COVID-19 05/09/2020 05/09/2020 05/09/2020 12:1 7 PM NAIL FEEDER documented as of this encounter Care Teams Department Clerk Relationship Specialty Start Date End Date Dara Tavera FNP [address] [place] [address] PCP - General NURSE PRACTITIONER 10/13/18 documented as of this encounter
--- OUTSIDE RECORDS SUMMARY | 2025-05-19 18:39 | XMS_ITS | Encounter Summary ---
Author Organization [facility] Address [address] [place] [address] Care Team Providers Care Steel Loader Name Role Phone Draa Tavera Primary Care Provider Encounter Details Date Type Department Care Team (Late st Contact Info) Description 06/10/1997 Outpatient Historical [facility] Chio Lopez MD [address] [place] [phone] Lumbago (Primary Dx) Social History Tobacco Use Types Packs/Day Years Used Date Smoking Tobacco: Never Assessed Comments Unknown Sex and Gender Information Value Date Recorded Sex Assigned at Not on file Legal Sex Female 5:22 AM SOCIAL MEDIA COMMUNITY MANAGER Gender Identity Not on file Sexual Orientation Not on file documented as of this encounter Plan of Treatment Not on file documented as of this encounter Visit Diagnoses Diagnosis Lumbago- Primary documented in this encounter Additional Health Concerns Infection Onset Date Last Indicated Resolved Time VRE Comment:Urine 10/30/13 Resolved 11/04/2013 11/04/2013 8 10:33 AM SOCIAL MEDIA COMMUNITY MANAGER R/O COVID-19 12/25/2019 12/25/2019 12/26/2019 2:46 PM CDT R/O COVID-19 05/09/2020 05/09/2020 05/09/2020 12:1 7 PM SOCIAL MEDIA COMMUNITY MANAGER documented as of this encounter Care Teams Steel Loader Relationship Specialty Start Date End Date Dara Tavera FNP [address] [place] [address] PCP - General NURSE PRACTITIONER 10/13/18 documented as of this encounter
--- OUTSIDE RECORDS SUMMARY | 2025-05-19 18:39 | XMS_ITS | Encounter Summary ---
Author Organization [facility] Address [address] [place]: [place] [address] Care Team Providers Care Plastics Factory Worker Name Role Phone Dara Tavera Primary Care Provider [phone] Encounter Details Date Type Department Care Team ([facility] st Contact Info) Description 01/17/2001 Outpatient Historical Non-Staff, Physician NO ADDRESS ON FILE Social History Tobacco Use Types Packs/Day Years Used Date Smoking Tobacco: Never Assessed Comments Unknown Sex and Gender Information Value Date Recorded Sex Assigned at Not on file Legal Sex Female 5:22 AM RN SOCIAL WORK Gender Identity Not on file Sexual Orientation Not on file documented as of this encounter Plan of Treatment Not on file documented as of this encounter Visit Diagnoses Not on filedocumented in this encounter Additional Health Concerns Infection Onset Date Last Indicated Resolved Time VRE Comment:Urine 10/30/13 Resolved 11/04/2013 11/04/2013 8 10:33 AM RN SOCIAL WORK R/O COVID-19 12/25/2019 12/25/2019 12/26/2019 2:46 PM CDT R/O COVID-19 05/09/2020 05/09/2020 05/09/2020 12:1 7 PM RN SOCIAL WORK documented as of this encounter Care Teams Plastics Factory Worker Relationship Specialty Start Date End Date Dara Tavera FNP [address] [place] [phone] PCP - General NURSE PRACTITIONER 10/13/18 documented as of this encounter
--- OUTSIDE RECORDS SUMMARY | 2025-05-19 18:39 | XMS_ITS | Encounter Summary ---
Author Organization [facility] Address [address] [place]: [place] [address] Care Team Providers Care Roll Forming Machine Operator Name Role Phone Dara Tavera Primary Care Provider Encounter Details Date Type Department Care Team ([facility] st Contact Info) Description 11/12/1999 Outpatient Historical [place] [facility] [place], [address] [place] [phone] Social History Tobacco Use Types Packs/Day Years Used Date Smoking Tobacco: Never Assessed Comments Unknown Sex and Gender Information Value Date Recorded Sex Assigned at Not on file Legal Sex Female 5:22 AM TRANSLATION DIRECTOR Gender Identity Not on file Sexual Orientation Not on file documented as of this encounter Plan of Treatment Not on file documented as of this encounter Visit Diagnoses Not on filedocumented in this encounter Additional Health Concerns Infection Onset Date Last Indicated Resolved Time VRE Comment:Urine 10/30/13 Resolved 11/04/2013 11/04/2013 8 10:33 AM TRANSLATION DIRECTOR R/O COVID-19 12/25/2019 12/25/2019 12/26/2019 2:46 PM CDT R/O COVID-19 05/09/2020 05/09/2020 05/09/2020 12:1 7 PM TRANSLATION DIRECTOR documented as of this encounter Care Teams Roll Forming Machine Operator Relationship Specialty Start Date End Date Dara Tavera FNP [address] [place] [phone] PCP - General NURSE PRACTITIONER 10/13/18 documented as of this encounter
--- OUTSIDE RECORDS SUMMARY | 2025-05-19 18:39 | XMS_ITS | Encounter Summary ---
Author Organization [facility] Address [address] [place] [address] Care Team Providers Care Regional Vice President Life Sales Name Role Phone Dara Tavera Primary Care Provider Encounter Details Date Type Department Care Team (Latest Contact Info) Description 09/25/2003 Outpatient Historical [facility] Urology- [address] [place] [address]tr[address], 3rd [place] [address] Hossein Blair MD NO ADDRESS ON FILE URGE & STRESS MIXED INCONTINENCE (Primary Dx) Social History Tobacco Use Types Packs/Day Years Used Date Smoking Tobacco: Never Assessed Comments Unknown Sex and Gender Information Value Date Recorded Sex Assigned at Not on file Legal Sex Female 5:22 AM CREDIT COLLECTIONS REP Gender Identity Not on file Sexual Orientation Not on file documented as of this encounter Plan of Treatment Not on file documented as of this encounter Visit Diagnoses Diagnosis Mixed incontinence urge and stress (male)(female)- Primary documented in this encounter Additional Health Concerns Infection Onset Date Last Indicated Resolved Time VRE Comment:Urine 10/30/13 Resolved 11/04/2013 11/04/2013 8 10:33 AM CREDIT COLLECTIONS REP R/O COVID-19 12/25/2019 12/25/2019 12/26/2019 2:46 PM CDT R/O COVID-19 05/09/2020 05/09/2020 05/09/2020 12:1 7 PM CREDIT COLLECTIONS REP documented as of this encounter Care Teams Regional Vice President Life Sales Relationship Specialty Start Date End Date Dara Tavera FNP [address] [place] [phone] PCP - General NURSE PRACTITIONER 10/13/18 documented as of this encounter
--- OUTSIDE RECORDS SUMMARY | 2025-05-19 18:39 | XMS_ITS | Encounter Summary ---
Author Organization [facility] Address [address] [place] [address] Care Team Providers Care Automatic Lump Making Machine Tender Name Role Phone Dara Tavera Primary Care Provider Encounter Details Date Type Department Care Team (Latest Contact Info) Description 07/31/2003 Inpatient Historical [facility] Operating Room [address] [place] [address] Hossein Blair MD NO ADDRESS ON FILE FB BLADDER & URETHRA (Primary Dx) Social History Tobacco Use Types Packs/Day Years Used Date Smoking Tobacco: Never Assessed Comments Unknown Sex and Gender Information Value Date Recorded Sex Assigned at Not on file Legal Sex Female 5:22 AM STAGECRAFT TEACHER Gender Identity Not on file Sexual Orientation Not on file documented as of this encounter Plan of Treatment Not on file documented as of this encounter Visit Diagnoses Diagnosis Foreign body in bladder and urethra- Primary documented in this encounter Additional Health Concerns Infection Onset Date Last Indicated Resolved Time VRE Comment:Urine 10/30/13 Resolved 11/04/2013 11/04/2013 8 10:33 AM STAGECRAFT TEACHER R/O COVID-19 12/25/2019 12/25/2019 12/26/2019 2:46 PM CDT R/O COVID-19 05/09/2020 05/09/2020 05/09/2020 12:1 7 PM STAGECRAFT TEACHER documented as of this encounter Care Teams Automatic Lump Making Machine Tender Relationship Specialty Start Date End Date Dara Tavera FNP [address] [place] [address] PCP - General NURSE PRACTITIONER 10/13/18 documented as of this encounter
--- OUTSIDE RECORDS SUMMARY | 2025-05-19 18:39 | XMS_ITS | Encounter Summary ---
Author Organization [employer] Address [address] [place] [address] Care Team Providers Care Pens And Pencils Repairer Name Role Phone Dara Tavera Primary Care Provider Encounter Details Date Type Department Care Team (Late st Contact Info) Description 07/31/1997 Outpatient Historical [facility] Social History Tobacco Use Types Packs/Day Years Used Date Smoking Tobacco: Never Assessed Comments Unknown Sex and Gender Information Value Date Recorded Sex Assigned at Not on file Legal Sex Female 5:22 AM MEDICAL TECHNOLOGIST GENERALIST Gender Identity Not on file Sexual Orientation Not on file documented as of this encounter Plan of Treatment Not on file documented as of this encounter Visit Diagnoses Not on filedocumented in this encounter Additional Health Concerns Infection Onset Date Last Indicated Resolved Time VRE Comment:Urine 10/30/13 Resolved 11/04/2013 11/04/2013 8 10:33 AM MEDICAL TECHNOLOGIST GENERALIST R/O COVID-19 12/25/2019 12/25/2019 12/26/2019 2:46 PM CDT R/O COVID-19 05/09/2020 05/09/2020 05/09/2020 12:1 7 PM MEDICAL TECHNOLOGIST GENERALIST documented as of this encounter Care Teams Pens And Pencils Repairer Relationship Specialty Start Date End Date Dara Tavera FNP [address] [place] [phone] PCP - General NURSE PRACTITIONER 10/13/18 documented as of this encounter
--- OUTSIDE RECORDS SUMMARY | 2025-05-19 18:39 | XMS_ITS | Encounter Summary ---
Author Organization [facility] Address [address] [place] [address] Care Team Providers Care Brass Instrument Repair Technician Name Role Phone Dara Tavera AMANDEEP Primary Care Provider Encounter Details Date Type Department Care Team (Latest Contact Info) Description 02/20/2008 Outpatient Historical [facility] [address] [place] [address] AMBULANCE, [facility] Hemorrhage of Rectum and Anus; [...] on file Legal Sex Female 5:22 AM PERMIT TECHNICIAN Gender Identity Not on file Sexual [...] 10/30/13 Resolved 11/04/2013 11/04/2013 8 10:33 AM PERMIT TECHNICIAN R/O COVID-19 12/25/2019 12/25/2019 12/26/2019 2:46 PM CDT R/O COVID-19 05/09/2020 05/09/2020 05/09/2020 12:1 7 PM PERMIT TECHNICIAN documented as of this encounter Care Teams Brass Instrument Repair Technician Relationship Specialty Start Date End Date Dara Tavera FNP [address] [place] [address] PCP - General NURSE PRACTITIONER 10/13/18 documented as of this encounter
--- OUTSIDE RECORDS SUMMARY | 2025-05-19 18:39 | XMS_ITS | Encounter Summary ---
Author Organization [facility] Address [address] [place] [address] Care Team Providers Care Animal Caretaker Name Role Phone Dara Tavera Primary Care Provider [phone] Encounter Details Date Type Department Care Team (Late st Contact Info) Description 07/20/2007 Outpatient Historical [facility] [address] [facility] [address] [place] [address] Prasad Carpenter MD NO ADDRESS ON FILE Social History Tobacco Use Types Packs/Day Years Used Date Smoking Tobacco: Never Assessed Comments Unknown Sex and Gender Information Value Date Recorded Sex Assigned at Not on file Legal Sex Female 5:22 AM COAGULATING DRYING SUPERVISOR Gender Identity Not on file Sexual Orientation Not on file documented as of this encounter Plan of Treatment Not on file documented as of this encounter Visit Diagnoses Not on filedocumented in this encounter Additional Health Concerns Infection Onset Date Last Indicated Resolved Time VRE Comment:Urine 10/30/13 Resolved 11/04/2013 11/04/2013 8 10:33 AM COAGULATING DRYING SUPERVISOR R/O COVID-19 12/25/2019 12/25/2019 12/26/2019 2:46 PM CDT R/O COVID-19 05/09/2020 05/09/2020 05/09/2020 12:1 7 PM COAGULATING DRYING SUPERVISOR documented as of this encounter Care Teams Animal Caretaker Relationship Specialty Start Date End Date Dara Tavera FNP [address] [place] [phone] PCP - General NURSE PRACTITIONER 10/13/18 documented as of this encounter
--- OUTSIDE RECORDS SUMMARY | 2025-05-19 18:39 | XMS_ITS | Encounter Summary ---
Author Organization [facility] Address [address] [place] [address] Care Team Providers Care Inspector Balance Truing Name Role Phone Dara Tavera AMANDEEP Primary Care Provider Encounter Details Date Type Department Care Team (Late st Contact Info) Description 08/21/2007 Emergency [facility] Emergency Department [address] [place] [address] Ed, Physician NO ADDRESS ON FILE Flex Ricks MD NO ADDRESS ON FILE Social History Tobacco Use Types Packs/Day Years Used Date Smoking Tobacco: Never Assessed Comments Unknown Sex and Gender Information Value Date Recorded Sex Assigned at Not on file Legal Sex Female 5:22 AM ICE CREAM FREEZER HELPER Gender Identity Not on file Sexual Orientation Not on file documented as of this encounter Plan of Treatment Not on file documented as of this encounter Procedures Procedure Name Priority Date/Time Associated Diagnosis Comments CT ABDOMEN PELVIS WO CONTRAST Routine 08/21/2007 11:56 PM ICE CREAM FREEZER HELPER CBC WITH DIFFERENTIAL Stat 08/21/2007 11:44 PM ICE CREAM FREEZER HELPER BASIC METABOLIC PANEL Stat 08/21/2007 11:44 PM ICE CREAM FREEZER HELPER URINALYSIS W/REFLEX MICROSCOPIC Stat 08/21/2007 10:16 PM ICE CREAM FREEZER HELPER documented in this encounter Results * CT ABDOMEN PELVIS WO CONTRAST (08/21/2007 11:56 PM ICE CREAM FREEZER HELPER) Anatomical Region Laterality Modality Abdomen Other 08/21/2007 11:5 6 PM ICE CREAM FREEZER HELPER Narrative 08/22/2007 12:47 AM ICE CREAM FREEZER HELPER CT Scan For Renal Colic: Date: 08/21/2007 [...] * CBC WITH DIFFERENTIAL (08/21/2007 11:44 PM ICE CREAM FREEZER HELPER) LYMPHOCYTE ABSOLUTE 2.5 1.2 - 4.0 K/ul [facility] LYMPHOCYTES 24.0 24.0 - 44.0 % [facility] MCV 88.3 84.0 - 103.[address] [facility] BASOPHILS 0.6 0.0 - 1.0 % [facility] MPV 9.8 8.9 - 12.[address] [facility] BASOPHILS ABSOLUTE 0.1 0.0 - 0.2 K/ul [facility] HEMOGLOBIN 12.6 12.0 - 16.0 g/dL [facility] MONOCYTES 4.8 2.0 - 10.0 % [facility] RDW 14.0 11.0 - 14.5 % [facility] MONOCYTE ABSOLUTE 0.5 0.1 - 0.6 K/ul [facility] WBC 10.5 4.5 - 11.0 K/ul [facility] NEUTROPHILS 68.9 42.2 - 75.2 % [facility] MCH 28.9 27.0 - 34.[address] [facility] NEUTROPHIL ABSOLUTE 7.2 2.0 - 8.0 K/ul [facility] HEMATOCRIT 38.5 36.0 - 46.0 % [facility] PLATELETS 284 140 - 440 K/ul [facility] EOSINOPHIL ABSOLUTE 0.2 0.0 - 0.7 K/ul [facility] EOSINOPHILS 1.7 0.0 - 7.0 % [facility] RBC 4.36 4.20 - 5.40 Mil/ul [facility] MCHC 32.7 30.0 - 35.0 g/dL [facility] Blood specimen (specimen) 08/21/2007 11:44 PM ICE CREAM FREEZER HELPER 08/21/2007 11:49 PM ICE CREAM FREEZER HELPER us Flex Ricks MD HEMATOLOGY ORDERABLES Destiny ricks Result [facility] [address] [place] [address] * (ABNORMAL) BASIC METABOLIC PANEL (08/21/2007 11:44 PM ICE CREAM FREEZER HELPER) CREATININE 0.8 0.7 - 1.2 mg/dL [facility] CALCIUM 9.8 8.4 - 10.5 mg/dL [facility] GLUCOSE 94 70 - 110 mg/dL [facility] CHLORIDE 112(H) 95 - 110 mEq/L [facility] SODIUM 139 136 - 145 mEq/L [facility] ANION GAP 11 9 - 20 mEq/L [facility] BUN 16 7 - 17 mg/dL [facility] CO2 20(L) 22 - 32 mmol/l [facility] OSMOLALITY, CALCULATED 286 275 - 295 mOsm/Kg [facility] POTASSIUM 3.6 3.5 - 5.0 mEq/L [facility] Blood specimen (specimen) 08/21/2007 11:44 PM ICE CREAM FREEZER HELPER 08/21/2007 11:49 PM ICE CREAM FREEZER HELPER Flex Ricks MD CHEMISTRY ORDERABLES Final Result [facility] [address] [place] [address] * URINALYSIS (08/21/2007 10:16 PM ICE CREAM FREEZER HELPER) Pathologist [facility] CLARITY UA Clear Clear [facility] GLUCOSE UA NEGATIVE NEGATIVE [facility] SPECIFIC GRAVITY UA 1.025 <=1.005 [facility] PH UA 6.5 5.0 - 9.0 [facility] BILIRUBIN UA NEGATIVE NEGATIVE [facility] LEUKOCYTE ESTERASE UA NEGATIVE NEGATIVE [facility] MICRO EXAM No No [facility] KETONES UA NEGATIVE NEGATIVE [facility] COLOR UA Yellow Straw [facility] PROTEIN UA NEGATIVE NEGATIVE [facility] BLOOD UA NEGATIVE NEGATIVE [facility] NITRITE UA NEGATIVE NEGATIVE [facility] UROBILINOGEN UA 0.[address] [facility] Urine, clean catch 08/21/2007 10:16 PM ICE CREAM FREEZER HELPER 08/21/2007 10:16 PM ICE CREAM FREEZER HELPER us Physician Sj Ed URINE ORDERABLES Final Result Performing Organization Address City/State/[facility] Co de Phone Number [facility] [address] [place] [address] documented in this encounter Visit Diagnoses Not on filedocumented in this encounter Additional Health Concerns Infection Onset Date Last Indicated Resolved Time VRE Comment:Urine 10/30/13 Resolved 11/04/2013 11/04/2013 8 10:33 AM ICE CREAM FREEZER HELPER R/O COVID-19 12/25/2019 12/25/2019 12/26/2019 2:46 PM CDT R/O COVID-19 05/09/2020 05/09/2020 05/09/2020 12:1 7 PM ICE CREAM FREEZER HELPER documented as of this encounter Care Teams Inspector Balance Truing Relationship Specialty Start Date End Date Dara Tavera FNP [address] [place] [phone] PCP - General NURSE PRACTITIONER 10/13/18 documented as of this encounter
--- OUTSIDE RECORDS SUMMARY | 2025-05-19 18:39 | XMS_ITS | Encounter Summary ---
Author Organization [facility] Address [address] [place] [address] Care Team Providers Care Grazing Examiner Name Role Phone Dara Tavera Primary Care Provider Encounter Details Date Type Department Care Team (Latest Contact Info) Description 07/02/1997 Outpatient Historical [facility] Roney Arora MD [address] [facility] [address] [place] [address] Unspecified osteomyelitis, other specified site (Primary Dx) Social History Tobacco Use Types Packs/Day Years Used Date Smoking Tobacco: Never Assessed Comments Unknown Sex and Gender Information Value Date Recorded Sex Assigned at Not on file Legal Sex Female 5:22 AM INSTRUMENT ASSEMBLY SUPERVISOR Gender Identity Not on file Sexual Orientation Not on file documented as of this encounter Plan of Treatment Not on file documented as of this encounter Visit Diagnoses Diagnosis Unspecified osteomyelitis, other specified site- Primary documented in this encounter Additional Health Concerns Infection Onset Date Last Indicated Resolved Time VRE Comment:Urine 10/30/13 Resolved 11/04/2013 11/04/2013 8 10:33 AM INSTRUMENT ASSEMBLY SUPERVISOR R/O COVID-19 12/25/2019 12/25/2019 12/26/2019 2:46 PM CDT R/O COVID-19 05/09/2020 05/09/2020 05/09/2020 12:1 7 PM INSTRUMENT ASSEMBLY SUPERVISOR documented as of this encounter Care Teams Grazing Examiner Relationship Specialty Start Date End Date Dara Tavera FNP [address] [place] [address] PCP - General NURSE PRACTITIONER 10/13/18 documented as of this encounter
--- OUTSIDE RECORDS SUMMARY | 2025-05-19 18:39 | XMS_ITS | Encounter Summary ---
Author Organization [facility] Address [address] [facility] Attn: [place] [address] Care Team Providers Care Marine Engine Machinist Apprentice Name Role Phone Dara Tavera Primary Care Provider [phone] Encounter Details Date Type Department Care Team ([facility] Contact Info) Description 02/25/2002 Outpatient Historical Raúl Osullivan MD [address] [place] [address] Social History Tobacco Use Types Packs/Day Years Used Date Smoking Tobacco: Never Assessed Comments Unknown Sex and Gender Information Value Date Recorded Sex Assigned at Not on file Legal Sex Female 5:22 AM DEPARTMENT MANAGER Gender Identity Not on file Sexual Orientation Not on file documented as of this encounter Plan of Treatment Not on file documented as of this encounter Visit Diagnoses Not on filedocumented in this encounter Additional Health Concerns Infection Onset Date Last Indicated Resolved Time VRE Comment:Urine 10/30/13 Resolved 11/04/2013 11/04/2013 8 10:33 AM DEPARTMENT MANAGER R/O COVID-19 12/25/2019 12/25/2019 12/26/2019 2:46 PM CDT R/O COVID-19 05/09/2020 05/09/2020 05/09/2020 12:1 7 PM DEPARTMENT MANAGER documented as of this encounter Care Teams Marine Engine Machinist Apprentice Relationship Specialty Start Date End Date Dara Tavera FNP [address] [place] [phone] PCP - General NURSE PRACTITIONER 10/13/18 documented as of this encounter
--- OUTSIDE RECORDS SUMMARY | 2025-05-19 18:39 | XMS_ITS | Encounter Summary ---
Author Organization [facility] Address [address] [place] [address] Care Team Providers Care Tuckpointer Cleaner Caulker Name Role Phone Dara Tavera AMANDEEP Primary Care Provider Encounter Details Date Type Department Care Team (Late st Contact Info) Description 08/05/2007 Emergency [facility] Emergency Department [address] [place] [address] Ed, Physician NO ADDRESS ON [...] file Legal Sex Female 5:22 AM ACTUARIAL ASSISTANT Gender Identity Not on file Sexual Orientation Not on file documented as of this encounter Plan of Treatment Not on file documented as of this encounter Procedures Procedure Name Priority Date/Time Associated Diagnosis Comments CT HEAD WO CONTRAST Routine 08/05/2007 6 :19 PM ACTUARIAL ASSISTANT XR CHEST PA AND LATERAL 2 VW Routine 08/05/2007 5:14 PM ACTUARIAL ASSISTANT CBC WITH DIFFERENTIAL Stat 08/05/2007 4:15 PM ACTUARIAL ASSISTANT BASIC METABOLIC PANEL Stat 08/05/2007 4:15 PM ACTUARIAL ASSISTANT documented in this encounter Results * CT HEAD WO CONTRAST (08/05/2007 6:19 PM ACTUARIAL ASSISTANT) Anatomical Region Laterality Modality Head Other 08/05/2007 6:19 PM ACTUARIAL ASSISTANT Narrative 08/05/2007 6:33 PM ACTUARIAL ASSISTANT The posterior fossa is grossly normal. The [...] CHEST PA AND LATERAL (08/05/2007 5:14 PM ACTUARIAL ASSISTANT) Anatomical Region Laterality Modality Chest Other 08/05/2007 5:14 PM ACTUARIAL ASSISTANT Narrative 08/05/2007 7:38 PM ACTUARIAL ASSISTANT The heart and mediastinum are normal in [...] (ABNORMAL) CBC WITH DIFFERENTIAL (08/05/2007 4:15 PM ACTUARIAL ASSISTANT) EOSINOPHIL ABSOLUTE 0.3 0.0 - 0.7 K/ul [facility] RBC 4.46 4.20 - 5.40 Mil/ul [facility] LYMPHOCYTES 31.5 24.0 - 44.0 % [facility] MCHC 33.2 30.0 - 35.0 g/dL [facility] LYMPHOCYTE ABSOLUTE 2.6 1.2 - 4.0 K/ul [facility] MCV 87.0 84.0 - 103.0 Fl [facility] MPV 9.8 8.9 - 12.8 Fl [facility] BASOPHILS ABSOLUTE 0.1 0.0 - 0.2 K/ul [facility] BASOPHILS 0.6 0.0 - 1.0 % [facility] HEMOGLOBIN 12.9 12.0 - 16.0 g/dL [facility] RDW 14.6(H) 11.0 - 14.5 % [facility] MONOCYTE ABSOLUTE 0.7(H) 0.1 - 0.6 K/ul [facility] MONOCYTES 7.7 2.0 - 10.0 % [facility] WBC 8.4 4.5 - 11.0 K/ul [facility] MCH 28.9 27.0 - 34.0 pg [facility] NEUTROPHIL ABSOLUTE 4.8 2.0 - 8.0 K/ul [facility] NEUTROPHILS 56.7 42.2 - 75.2 % [facility] HEMATOCRIT 38.8 36.0 - 46.0 % [facility] EOSINOPHILS 3.5 0.0 - 7.0 % [facility] PLATELETS 232 140 - 440 K/ul [facility] Blood specimen (specimen) 08/05/2007 4:15 PM ACTUARIAL ASSISTANT 08/05/2007 4:26 PM ACTUARIAL ASSISTANT Hemant Bran MD HEMATOLOGY ORDERABLES Destiny l Result Performing Organization Address [facility] de Phone Number [facility] [address] [place] [address] * (ABNORMAL) BASIC METABOLIC PANEL (08/05/2007 4:15 PM ACTUARIAL ASSISTANT) ANION GAP 9 9 - 20 mEq/L [facility] BUN 14 7 - 17 mg/dL [facility] CO2 19(L) 22 - 32 mmol/l [facility] OSMOLALITY, CALCULATED 290 275 - 295 mOsm/Kg [facility] POTASSIUM 3.9 3.5 - 5.0 mEq/L [facility] CREATININE 0.9 0.7 - 1.2 mg/dL [facility] CALCIUM 9.4 8.4 - 10.5 mg/dL [facility] GLUCOSE 105 70 - 110 mg/dL [facility] CHLORIDE 117(H) 95 - 110 mEq/L [facility] SODIUM 141 136 - 145 mEq/L [facility] Blood specimen (specimen) 08/05/2007 4:15 PM ACTUARIAL ASSISTANT 08/05/2007 4:26 PM ACTUARIAL ASSISTANT Hemant Bran MD CHEMISTRY ORDERABLES Final Result Performing Organization Address [facility] de Phone Number [facility] [address] [place] [address] documented in this encounter Visit Diagnoses Diagnosis [...] Resolved 11/04/2013 11/04/2013 8 10:33 AM ACTUARIAL ASSISTANT R/O COVID-19 12/25/2019 12/25/2019 12/26/2019 2:46 PM CDT R/O COVID-19 05/09/2020 05/09/2020 05/09/2020 12:1 7 PM ACTUARIAL ASSISTANT documented as of this encounter Care Teams Tuckpointer Cleaner Caulker Relationship Specialty Start Date End Date Dara Tavera FNP [address] [place] [address] PCP - General NURSE PRACTITIONER 10/13/18 documented as of this encounter
--- OUTSIDE RECORDS SUMMARY | 2025-05-19 18:39 | XMS_ITS | Encounter Summary ---
Author Organization [facility] Address [address] Bello: [place] [address] Care Team Providers Care Wind Science And Planning Name Role Phone Dara Tavera Primary Care Provider Encounter Details Date Type Department Care Team ([facility] st Contact Info) Description 11/25/1999 Outpatient Historical [facility] [place], [address] [place] [phone] Social History Tobacco Use Types Packs/Day Years Used Date Smoking Tobacco: Never Assessed Comments Unknown Sex and Gender Information Value Date Recorded Sex Assigned at Not on file Legal Sex Female 5:22 AM CREDIT DEPARTMENT MANAGER Gender Identity Not on file Sexual Orientation Not on file documented as of this encounter Plan of Treatment Not on file documented as of this encounter Visit Diagnoses Not on filedocumented in this encounter Additional Health Concerns Infection Onset Date Last Indicated Resolved Time VRE Comment:Urine 10/30/13 Resolved 11/04/2013 11/04/2013 8 10:33 AM CREDIT DEPARTMENT MANAGER R/O COVID-19 12/25/2019 12/25/2019 12/26/2019 2:46 PM CDT R/O COVID-19 05/09/2020 05/09/2020 05/09/2020 12:1 7 PM CREDIT DEPARTMENT MANAGER documented as of this encounter Care Teams Wind Science And Planning Relationship Specialty Start Date End Date Dara Tavera FNP [address] [place] [phone] PCP - General NURSE PRACTITIONER 10/13/18 documented as of this encounter
--- OUTSIDE RECORDS SUMMARY | 2025-05-19 18:39 | XMS_ITS | Encounter Summary ---
Author Organization [facility] Address [address] Roblesn: [place] [address] Care Team Providers Care Bead Wire Insulator Name Role Phone Dara Tavera Primary Care Provider Encounter Details Date Type Department Care Team ([facility] Contact Info) Description 10/29/2001 Outpatient Historical Non-Staff, Physician NO ADDRESS ON FILE Social History Tobacco Use Types Packs/Day Years Used Date Smoking Tobacco: Never Assessed Comments Unknown Sex and Gender Information Value Date Recorded Sex Assigned at Not on file Legal Sex Female 5:22 AM FLIGHT/TRANSPORT NURSE Gender Identity Not on file Sexual Orientation Not on file documented as of this encounter Plan of Treatment Not on file documented as of this encounter Visit Diagnoses Not on filedocumented in this encounter Additional Health Concerns Infection Onset Date Last Indicated Resolved Time VRE Comment:Urine 10/30/13 Resolved 11/04/2013 11/04/2013 8 10:33 AM FLIGHT/TRANSPORT NURSE R/O COVID-19 12/25/2019 12/25/2019 12/26/2019 2:46 PM CDT R/O COVID-19 05/09/2020 05/09/2020 05/09/2020 12:1 7 PM FLIGHT/TRANSPORT NURSE documented as of this encounter Care Teams Bead Wire Insulator Relationship Specialty Start Date End Date Dara Tavera FNP [address] [place] [phone] PCP - General NURSE PRACTITIONER 10/13/18 documented as of this encounter
--- OUTSIDE RECORDS SUMMARY | 2025-05-19 18:39 | XMS_ITS | Encounter Summary ---
Author Organization [facility] Address [address] [place] [address] Care Team Providers Care Drill Press Operator For Metal Name Role Phone Dara Tavera Primary Care Provider Encounter Details Date Type Department Care Team (Late st Contact Info) Description 08/06/2007 Outpatient [facility] [address] [place] [address] Tej Will MD [address] [address] Social History Tobacco Use Types Packs/Day Years Used Date Smoking Tobacco: Never Assessed Comments Unknown Sex and Gender Information Value Date Recorded Sex Assigned at Not on file Legal Sex Female 5:22 AM CAFETERIA MONITOR Gender Identity Not on file Sexual Orientation Not on file documented as of this encounter Plan of Treatment Not on file documented as of this encounter Visit Diagnoses Not on filedocumented in this encounter Additional Health Concerns Infection Onset Date Last Indicated Resolved Time VRE Comment:Urine 10/30/13 Resolved 11/04/2013 11/04/2013 8 10:33 AM CAFETERIA MONITOR R/O COVID-19 12/25/2019 12/25/2019 12/26/2019 2:46 PM CDT R/O COVID-19 05/09/2020 05/09/2020 05/09/2020 12:1 7 PM CAFETERIA MONITOR documented as of this encounter Care Teams Drill Press Operator For Metal Relationship Specialty Start Date End Date Dara Tavera FNP [address] [place] [phone] PCP - General NURSE PRACTITIONER 10/13/18 documented as of this encounter
--- OUTSIDE RECORDS SUMMARY | 2025-05-19 18:39 | XMS_ITS | Encounter Summary ---
Author Organization [facility] Address [address] [place] [address] Care Team Providers Care Buying Agent Name Role Phone Dara Tavera Primary Care Provider [phone] Encounter Details Date Type Department Care Team (Latest Contact Info) Description 08/08/2003 Outpatient Historical [facility]- [address] 3rd [place] [address] Hossein Blair MD NO ADDRESS ON FILE URGE & STRESS MIXED INCONTINENCE (Primary Dx) Social History Tobacco Use Types Packs/Day Years Used Date Smoking Tobacco: Never Assessed Comments Unknown Sex and Gender Information Value Date Recorded Sex Assigned at Not on file Legal Sex Female 5:22 AM MESS COOK Gender Identity Not on file Sexual Orientation Not on file documented as of this encounter Plan of Treatment Not on file documented as of this encounter Visit Diagnoses Diagnosis Mixed incontinence urge and stress (male)(female)- Primary documented in this encounter Additional Health Concerns Infection Onset Date Last Indicated Resolved Time VRE Comment:Urine 10/30/13 Resolved 11/04/2013 11/04/2013 8 10:33 AM MESS COOK R/O COVID-19 12/25/2019 12/25/2019 12/26/2019 2:46 PM CDT R/O COVID-19 05/09/2020 05/09/2020 05/09/2020 12:1 7 PM MESS COOK documented as of this encounter Care Teams Buying Agent Relationship Specialty Start Date End Date Dara Tavera FNP [address] [place] [phone] PCP - General NURSE PRACTITIONER 10/13/18 documented as of this encounter
--- OUTSIDE RECORDS SUMMARY | 2025-05-19 18:40 | XMS_ITS | Encounter Summary ---
Author Organization [facility] Address [address] [place] [address] Care Team Providers Care Flocculator Operator Name Role Phone Dara Tavera AMANDEEP Primary Care Provider Encounter Details Date Type Department Care Team (Late st Contact Info) Description 04/04/2007 Emergency [facility] Emergency Department [address] [place] [address] Sammi Justice MD [address] [facility] [address] [place] [address] Unspecified Chest Pain (Primary Dx) Social History Tobacco Use Types Packs/Day Years Used Date Smoking Tobacco: Never Assessed Comments Unknown Sex and Gender Information Value Date Recorded Sex Assigned at Not on file Legal Sex Female 5:22 AM HEALTH INFORMATION TECHNOLOGIST Gender Identity Not on file Sexual [...] HEMATOLOGY ORDERABLES Edite d Performing Organization Address [facility] Phone Number INTERFACE SYSTEM [...] HEMATOLOGY ORDERABLES Edite d Performing Organization Address [facility] Phone Number INTERFACE SYSTEM [...] Goal INR 3.0; range 2.5 - 3.5 POST-SD Goal INR 2.5; range 2.0 - 3.0 or Goal 3.0; range 2.5 - 3.5 Atrial Fibrillation Goal INR 2.5; range 2.0 - 3.0 Ischemic Stroke Goal INR 2.5; range 2.0 - 3.0 For additional information see Guidelines for Anticoagulation available from the pharmacy [facility]. 04/04/2007 1:03 AM CDT Sammi Justice MD HEMATOLOGY ORDERABLES Edite d Performing Organization Address [facility] Phone Number INTERFACE SYSTEM [...] MD CHEMISTRY ORDERABLES Edited Performing Organization Address [facility] Phone Number INTERFACE SYSTEM Refer [...] ORDERABLES Edited Performing Organization Address [facility] Phone Number INTERFACE SYSTEM Refer to clinic/hospital department documented in this encounter Visit Diagnoses Diagnosis Chest pain, unspecified- Primary documented in this encounter Additional Health Concerns Infection Onset Date Last Indicated Resolved Time VRE Comment:Urine 10/30/13 Resolved 11/04/2013 11/04/201307/26/201 8 10:33 AM HEALTH INFORMATION TECHNOLOGIST R/O COVID-19 12/25/2019 12/25/2019 12/26/2019 2:46 PM CDT R/O COVID-19 05/09/2020 05/09/2020 05/09/2020 12:1 7 PM HEALTH INFORMATION TECHNOLOGIST documented as of this encounter Care Teams Flocculator Operator Relationship Specialty Start Date End Date Dara Tavera FNP [address] [place] [phone] PCP - General NURSE PRACTITIONER 10/13/18 documented as of this encounter
--- OUTSIDE RECORDS SUMMARY | 2025-05-19 18:40 | XMS_ITS | Encounter Summary ---
Author Organization [facility] Address [address] [place] [address] Care Team Providers Care Stained Glass Glazier Helper Name Role Phone Dara Tavera Primary Care Provider Encounter Details Date Type Department Care Team (Late st Contact Info) Description 05/12/2007 Emergency [facility] Emergency Department [address] [place] [address] Isaac Kovacs PA [address], [place] [id number] Neck Sprain and Strain (Primary Dx) Social History Tobacco Use Types Packs/Day Years Used Date Smoking Tobacco: Never Assessed Comments Unknown Sex and Gender Information Value Date Recorded Sex Assigned at Not on file Legal Sex Female 5:22 AM MATERIAL HANDLING WAREHOUSE SUPERVISOR Gender Identity Not on file Sexual Orientation Not on file documented as of this encounter Plan of Treatment Not on file documented as of this encounter Visit Diagnoses Diagnosis Sprain of neck- Primary documented in this encounter Additional Health Concerns Infection Onset Date Last Indicated Resolved Time VRE Comment:Urine 10/30/13 Resolved 11/04/2013 11/04/2013 8 10:33 AM MATERIAL HANDLING WAREHOUSE SUPERVISOR R/O COVID-19 12/25/2019 12/25/2019 12/26/2019 2:46 PM CDT R/O COVID-19 05/09/2020 05/09/2020 05/09/2020 12:1 7 PM MATERIAL HANDLING WAREHOUSE SUPERVISOR documented as of this encounter Care Teams Stained Glass Glazier Helper Relationship Specialty Start Date End Date Dara Tavera FNP [address] [place] [phone] PCP - General NURSE PRACTITIONER 10/13/18 documented as of this encounter
--- OUTSIDE RECORDS SUMMARY | 2025-05-19 18:40 | XMS_ITS | Encounter Summary ---
Author Organization [facility] Address [address] [place] [address] Care Team Providers Care Accordion Repairer Name Role Phone Dara Tavera AMANDEEP Primary Care Provider Encounter Details Date Type Department Care Team (Late st Contact Info) Description 05/16/2007 Emergency [facility] Emergency Department [address] [place] [address] Ed, Physician NO ADDRESS ON FILE Thiago Mota MD NO ADDRESS ON FILE Social History Tobacco Use Types Packs/Day Years Used Date Smoking Tobacco: Never Assessed Comments Unknown Sex and Gender Information Value Date Recorded Sex Assigned at Not on file Legal Sex Female 5:22 AM FARM PLANNER Gender Identity Not on file Sexual Orientation Not on file documented as of this encounter Plan of Treatment Not on file documented as of this encounter Procedures Procedure Name Priority Date/Time Associated Diagnosis Comments URINALYSIS MICROSCOPY ONLY Routine 05/16/2007 4:37 PM FARM PLANNER URINALYSIS W/REFLEX MICROSCOPIC Routine 05/16/2007 4:37 PM FARM PLANNER CBC WITH DIFFERENTIAL Routine 05/16/2007 4:32 PM FARM PLANNER LIPASE Routine 05/16/2007 4:32 PM FARM PLANNER AMYLASE Routine 05/16/2007 4:32 PM FARM PLANNER COMPREHENSIVE METABOLIC PANEL Routine 05/16/2007 4:32 PM FARM PLANNER documented in this encounter Results * (ABNORMAL) URINALYSIS (05/16/2007 4:37 PM FARM PLANNER) COLOR UA Yellow Straw INTERFACE SYSTEM CLARITY [...] Yes(A) No INTERFACE SYSTEM 05/16/2007 4:37 PM FARM PLANNER us Thiago Mota MD URINE ORDERABLES Edited Performing Organization Address [facility] Phone Number INTERFACE SYSTEM Refer to clinic/hospital department * (ABNORMAL) URINALYSIS MICROSCOPY ONLY (05/16/2007 4:37 PM FARM PLANNER) WBC URINE None Seen 0 - 2 INTERFACE SYSTEM RBC UA None Seen 0 - 2 INTERFACE SYSTEM HYALINE CAST None Seen 0 - 2 INTERFA CE SYSTEM BACTERIA UA Few(A) None Seen INTERFAC E SYSTEM 05/16/2007 4:37 PM FARM PLANNER us Thiago Mota MD URINE ORDERABLES Edited Performing Organization Address [facility] Phone Number INTERFACE SYSTEM Refer to clinic/hospital department * LIPASE (05/16/2007 4:32 PM FARM PLANNER) LIPASE 27 6 - 51 U/L INTERFACE SYSTEM 05/16/2007 4:32 PM FARM PLANNER us Thiago Mota MD CHEMISTRY ORDERABLES Edited Performing Organization Address [facility] Phone Number INTERFACE SYSTEM Refer to clinic/hospital department * AMYLASE (05/16/2007 4:32 PM FARM PLANNER) AMYLASE 48 20 - 104 U/L INTERFACE SYSTEM 05/16/2007 4:32 PM FARM PLANNER us Thiago Mota MD CHEMISTRY ORDERABLES Edited Performing Organization Address [facility] Phone Number INTERFACE SYSTEM Refer to clinic/hospital department * (ABNORMAL) COMPREHENSIVE METABOLIC PANEL (05/16/2007 4:32 PM FARM PLANNER) GLOBULIN (CALC) 3.0 2.4 - 3.9 g/dL [...] 295 mOsm/Kg INTERFACE SYSTEM 05/16/2007 4:32 PM FARM PLANNER us Thiago Mota MD CHEMISTRY ORDERABLES Edited Performing Organization Address [facility] Co de Phone Number INTERFACE SYSTEM Refer to clinic/hospital department * (ABNORMAL) CBC WITH DIFFERENTIAL (05/16/2007 4:32 PM FARM PLANNER) WBC 13.2(H) 4.5 - 11.0 K/ul INTERFACE [...] 0.2 K/ul INTERFACE SYSTEM 05/16/2007 4:32 PM FARM PLANNER Thiago Mota MD HEMATOLOGY ORDERABLES Edited INTERFACE SYSTEM Refer to clinic/hospital department documented in this encounter Visit Diagnoses Not on filedocumented in this encounter Additional Health Concerns Infection Onset Date Last Indicated Resolved Time VRE Comment:Urine 10/30/13 Resolved 11/04/2013 11/04/2013 8 10:33 AM FARM PLANNER R/O COVID-19 12/25/2019 12/25/2019 12/26/2019 2:46 PM CDT R/O COVID-19 05/09/2020 05/09/2020 05/09/2020 12:1 7 PM FARM PLANNER documented as of this encounter Care Teams Accordion Repairer Relationship Specialty Start Date End Date Dara Tavera FNP [address] [place] [phone] PCP - General NURSE PRACTITIONER 10/13/18 documented as of this encounter
--- OUTSIDE RECORDS SUMMARY | 2025-05-19 18:40 | XMS_ITS | Encounter Summary ---
Author Organization [facility] Address [address] [place] [address] Care Team Providers Care Grades 9 12 Tutor Name Role Phone Dara Tavera AMANDEEP Primary Care Provider Encounter Details Date Type Department Care Team (Latest Contact Info) Description 05/11/2008 Outpatient Historical [facility] [address] [place] [address] AMBULANCE, [facility] Esophageal Reflux; Personal History of Allergy to [...] Legal Sex Female 5:22 AM DIRECTOR OF MARKET ANALYSIS Gender Identity Not on file Sexual Orientation [...] 11/04/2013 11/04/2013 8 10:33 AM DIRECTOR OF MARKET ANALYSIS R/O COVID-19 12/25/2019 12/25/2019 12/26/2019 2:46 PM CDT R/O COVID-19 05/09/2020 05/09/2020 05/09/2020 12:1 7 PM DIRECTOR OF MARKET ANALYSIS documented as of this encounter Care Teams Grades 9 12 Tutor Relationship Specialty Start Date End Date Dara Tavera FNP [address] [place] [phone] PCP - General NURSE PRACTITIONER 10/13/18 documented as of this encounter
--- OUTSIDE RECORDS SUMMARY | 2025-05-19 18:40 | XMS_ITS | Encounter Summary ---
Author Organization [facility] Address [address] [place] [address] Care Team Providers Care Grain Weigher Name Role Phone Dara Tavera AMANDEEP Primary Care Provider Encounter Details Date Type Department Care Team (Late st Contact Info) Description 05/21/2007 Emergency [facility] Emergency Department [address] [place] [address] Ed, Physician NO ADDRESS ON FILE Rory Lynn MD NO ADDRESS ON FILE Social History Tobacco Use Types Packs/Day Years Used Date Smoking Tobacco: Never Assessed Comments Unknown Sex and Gender Information Value Date Recorded Sex Assigned at Not on file Legal Sex Female 5:22 AM DAMAGE PREVENTION COORDINATOR Gender Identity Not on file Sexual Orientation Not on file documented as of this encounter Plan of Treatment Not on file documented as of this encounter Procedures Procedure Name Priority Date/Time Associated Diagnosis Comments CBC WITH DIFFERENTIAL Routine 05/21/2007 6:18 PM DAMAGE PREVENTION COORDINATOR documented in this encounter Results * (ABNORMAL) CBC WITH DIFFERENTIAL (05/21/2007 6:18 PM DAMAGE PREVENTION COORDINATOR) WBC 9.5 4.5 - 11.0 K/ul INTERFACE [...] 0.2 K/ul INTERFACE SYSTEM 05/21/2007 6:18 PM DAMAGE PREVENTION COORDINATOR us Rory Lynn MD HEMATOLOGY ORDERABLES Hakan earl INTERFACE SYSTEM Refer to clinic/hospital department documented in this encounter Visit Diagnoses Not on filedocumented in this encounter Additional Health Concerns Infection Onset Date Last Indicated Resolved Time VRE Comment:Urine 10/30/13 Resolved 11/04/2013 11/04/2013 8 10:33 AM DAMAGE PREVENTION COORDINATOR R/O COVID-19 12/25/2019 12/25/2019 12/26/2019 2:46 PM CDT R/O COVID-19 05/09/2020 05/09/2020 05/09/2020 12:1 7 PM DAMAGE PREVENTION COORDINATOR documented as of this encounter Care Teams Grain Weigher Relationship Specialty Start Date End Date Dara Tavera FNP [address] [place] [phone] PCP - General NURSE PRACTITIONER 10/13/18 documented as of this encounter
--- OUTSIDE RECORDS SUMMARY | 2025-05-19 18:40 | XMS_ITS | Encounter Summary ---
Author Organization [facility] Address [address] [place] [address] Care Team Providers Care Director Social Service Name Role Phone Dara Tavera Primary Care Provider Encounter Details Date Type Department Care Team (Latest Contact Info) Description 09/19/2005 Outpatient Historical [facility] [address] [place] [address] AMBULANCE, [facility] Unspecified Hemorrhage (Primary Dx) Social History Tobacco Use Types Packs/Day Years Used Date Smoking Tobacco: Never Assessed Comments Unknown Sex and Gender Information Value Date Recorded Sex Assigned at Not on file Legal Sex Female 5:22 AM BOAT GARNISHER Gender Identity Not on file Sexual Orientation Not on file documented as of this encounter Plan of Treatment Not on file documented as of this encounter Visit Diagnoses Diagnosis Hemorrhage, unspecified- Primary documented in this encounter Additional Health Concerns Infection Onset Date Last Indicated Resolved Time VRE Comment:Urine 10/30/13 Resolved 11/04/2013 11/04/2013 8 10:33 AM BOAT GARNISHER R/O COVID-19 12/25/2019 12/25/2019 12/26/2019 2:46 PM CDT R/O COVID-19 05/09/2020 05/09/2020 05/09/2020 12:1 7 PM BOAT GARNISHER documented as of this encounter Care Teams Director Social Service Relationship Specialty Start Date End Date Dara Tavera FNP [address] [place] [phone] PCP - General NURSE PRACTITIONER 10/13/18 documented as of this encounter
--- OUTSIDE RECORDS SUMMARY | 2025-05-19 18:40 | XMS_ITS | Encounter Summary ---
Author Organization [facility] Address [address] [place] [address] Care Team Providers Care Offender Employment Specialist Name Role Phone Dara Tavera Primary Care Provider Encounter Details Date Type Department Care Team (Latest Contact Info) Description 02/20/2007 Outpatient Historical [facility]ulance [address] [place] [address] AMBULANCE, [facility] Unspecified Nonpsychotic Mental Disorder (Primary Dx) Social History Tobacco Use Types Packs/Day Years Used Date Smoking Tobacco: Never Assessed Comments Unknown Sex and Gender Information Value Date Recorded Sex Assigned at Not on file Legal Sex Female 5:22 AM MEDICAL TECHNOLOGIST HEMATOLOGY Gender Identity Not on file Sexual Orientation Not on file documented as of this encounter Plan of Treatment Not on file documented as of this encounter Visit Diagnoses Diagnosis Unspecified nonpsychotic mental disorder- Primary documented in this encounter Additional Health Concerns Infection Onset Date Last Indicated Resolved Time VRE Comment:Urine 10/30/13 Resolved 11/04/2013 11/04/2013 8 10:33 AM MEDICAL TECHNOLOGIST HEMATOLOGY R/O COVID-19 12/25/2019 12/25/2019 12/26/2019 2:46 PM CDT R/O COVID-19 05/09/2020 05/09/2020 05/09/2020 12:1 7 PM MEDICAL TECHNOLOGIST HEMATOLOGY documented as of this encounter Care Teams Offender Employment Specialist Relationship Specialty Start Date End Date Dara Tavera FNP [address] [place] [phone] PCP - General NURSE PRACTITIONER 10/13/18 documented as of this encounter
--- OUTSIDE RECORDS SUMMARY | 2025-05-19 18:40 | XMS_ITS | Encounter Summary ---
Author Organization [facility] Address [address] [place] [address] Care Team Providers Care Inker Machine Name Role Phone Dara Tavera Primary Care Provider Encounter Details Date Type Department Care Team (Latest Contact Info) Description 05/01/2007 Outpatient Historical [facility] [place] [facility] Urology- [address]tr[address], [address] [place] [address] Mason West MD NO ADDRESS [...] documented as of this encounter Care Teams Inker Machine Relationship Specialty Start Date End Date Dara Tavera FNP [address] [place] [address] PCP - General NURSE PRACTITIONER 10/13/18 documented as of this encounter
--- OUTSIDE RECORDS SUMMARY | 2025-05-19 18:40 | XMS_ITS | Encounter Summary ---
Author Organization [facility] Address [address] [place] [address] Care Team Providers Care General Road Foreman Name Role Phone Dara Tavera Primary Care Provider [phone] Encounter Details Date Type Department Care Team (Latest Contact Info) Description 12/03/2005 Outpatient Historical [facility] [address] [place] [address] AMBULANCE, [facility] Disruption of External Operation Wound, not Elsewhere Classified (Primary Dx) Social History Tobacco Use Types Packs/Day Years Used Date Smoking Tobacco: Never Assessed Comments Unknown Sex and Gender Information Value Date Recorded Sex Assigned at Not on file Legal Sex Female 5:22 AM OUTSIDE SALES ADVERTISING EXECUTIVE Gender Identity Not on file Sexual Orientation Not on file documented as of this encounter Plan of Treatment Not on file documented as of this encounter Visit Diagnoses Diagnosis Disruption of external operation (surgical) wound- Primary documented in this encounter Additional Health Concerns Infection Onset Date Last Indicated Resolved Time VRE Comment:Urine 10/30/13 Resolved 11/04/2013 11/04/2013 8 10:33 AM OUTSIDE SALES ADVERTISING EXECUTIVE R/O COVID-19 12/25/2019 12/25/2019 12/26/2019 2:46 PM CDT R/O COVID-19 05/09/2020 05/09/2020 05/09/2020 12:1 7 PM OUTSIDE SALES ADVERTISING EXECUTIVE documented as of this encounter Care Teams General Road Foreman Relationship Specialty Start Date End Date Dara Tavera FNP [address] [place] [phone] PCP - General NURSE PRACTITIONER 10/13/18 documented as of this encounter
--- OUTSIDE RECORDS SUMMARY | 2025-05-19 18:40 | XMS_ITS | Encounter Summary ---
Author Organization [facility] Address [address] [place] [address] Care Team Providers Care Maintainer Operator Name Role Phone Dara Tavera AMANDEEP Primary Care Provider Encounter Details Date Type Department Care Team (Late st Contact Info) Description 05/14/2007 Emergency [facility] Emergency Department [address] [place] [address] Kurt Nassar MD [address] [place] [address] Abdominal Pain, Unspecified Site (Primary Dx) Social History Tobacco Use Types Packs/Day Years Used Date Smoking Tobacco: Never Assessed Comments Unknown Sex and Gender Information Value Date Recorded Sex Assigned at Not on file Legal Sex Female 5:22 AM PRINTED CIRCUIT BOARD REWORKER Gender Identity Not on file Sexual Orientation Not on file documented as of this encounter Plan of Treatment Not on file documented as of this encounter Procedures Procedure Name Priority Date/Time Associated Diagnosis Comments URINALYSIS W/REFLEX MICROSCOPIC Routine 05/14/2007 12:20 PM PRINTED CIRCUIT BOARD REWORKER CBC WITH DIFFERENTIAL Routine 05/14/2007 11:37 AM PRINTED CIRCUIT BOARD REWORKER LIPASE Routine 05/14/2007 11:37 AM PRINTED CIRCUIT BOARD REWORKER AMYLASE Routine 05/14/2007 11:37 AM PRINTED CIRCUIT BOARD REWORKER COMPREHENSIVE METABOLIC PANEL Routine 05/14/2007 11:37 AM PRINTED CIRCUIT BOARD REWORKER documented in this encounter Results * URINALYSIS (05/14/2007 12:20 PM PRINTED CIRCUIT BOARD REWORKER) COLOR UA Yellow Straw INTERFACE SYSTEM CLARITY [...] No INTERFACE SYSTEM 05/14/2007 12:2 0 PM PRINTED CIRCUIT BOARD REWORKER Kurt Nsasar MD URINE ORDERABLES Edited Performing Organization Address [facility] [place] Phone Number INTERFACE SYSTEM Refer to clinic/hospital department * AMYLASE (05/14/2007 11:37 AM PRINTED CIRCUIT BOARD REWORKER) AMYLASE 46 20 - 104 U/L INTERFACE SYSTEM 05/14/2007 11:3 7 AM PRINTED CIRCUIT BOARD REWORKER Result [facility] Kurt Nassar MD CHEMISTRY ORDERABLES Edite d Performing Organization Address [facility] Phone Number INTERFACE SYSTEM Refer to clinic/hospital department * LIPASE (05/14/2007 11:37 AM PRINTED CIRCUIT BOARD REWORKER) LIPASE 30 6 - 51 U/L INTERFACE SYSTEM 05/14/2007 11:3 7 AM PRINTED CIRCUIT BOARD REWORKER Kurt Nassar MD CHEMISTRY ORDERABLES Edite d Performing Organization Address [facility] [place] Phone Number INTERFACE SYSTEM Refer to clinic/hospital department * (ABNORMAL) COMPREHENSIVE METABOLIC PANEL (05/14/2007 11:37 AM PRINTED CIRCUIT BOARD REWORKER) GLUCOSE 104 70 - 110 mg/dL INTERFACE [...] mOsm/Kg INTERFACE SYSTEM 05/14/2007 11:3 7 AM PRINTED CIRCUIT BOARD REWORKER us Kurt Nassar MD CHEMISTRY ORDERABLES Edite d INTERFACE SYSTEM Refer to clinic/hospital department * (ABNORMAL) CBC WITH DIFFERENTIAL (05/14/2007 11:37 AM PRINTED CIRCUIT BOARD REWORKER) WBC 12.6(H) 4.5 - 11.0 K/ul INTERFACE [...] K/ul INTERFACE SYSTEM 05/14/2007 11:3 7 AM PRINTED CIRCUIT BOARD REWORKER us Kurt Nassar MD HEMATOLOGY ORDERABLES Edit ed INTERFACE SYSTEM Refer to clinic/hospital department documented in this encounter Visit Diagnoses Diagnosis Abdominal pain, unspecified site- Primary documented in this encounter Additional Health Concerns Infection Onset Date Last Indicated Resolved Time VRE Comment:Urine 10/30/13 Resolved 11/04/2013 11/04/2013 10:33 AM PRINTED CIRCUIT BOARD REWORKER R/O COVID-19 12/25/2019 12/25/2019 12/26/2019 2:46 PM CDT R/O COVID-19 05/09/2020 05/09/2020 05/09/2020 12:1 7 PM PRINTED CIRCUIT BOARD REWORKER documented as of this encounter Care Teams Maintainer Operator Relationship Specialty Start Date End Date Dara Tavera FNP [address] [place] [phone] PCP - General NURSE PRACTITIONER 10/13/18 documented as of this encounter
--- OUTSIDE RECORDS SUMMARY | 2025-05-19 18:40 | XMS_ITS | Encounter Summary ---
Author Organization [facility] Address [address] [place] [address] Care Team Providers Care Breaker Table Worker Name Role Phone Dara Tavera AMANDEEP Primary Care Provider Encounter Details Date Type Department Care Team (Late st Contact Info) Description 04/04/2007 Outpatient [facility] [address] [place] [address] AMBULANCE, [facility] Unspecified Chest Pain (Primary Dx) Social History Tobacco Use Types Packs/Day Years Used Date Smoking Tobacco: Never Assessed Comments Unknown Sex and Gender Information Value Date Recorded Sex Assigned at Not on file Legal Sex Female 5:22 AM SHINGLE INSPECTOR Gender Identity Not on file Sexual [...] 10/30/13 Resolved 11/04/2013 11/04/2013 8 10:33 AM SHINGLE INSPECTOR R/O COVID-19 12/25/2019 12/25/2019 12/26/2019 2:46 PM CDT R/O COVID-19 05/09/2020 05/09/2020 05/09/2020 12:1 7 PM SHINGLE INSPECTOR documented as of this encounter Care Teams Breaker Table Worker Relationship Specialty Start Date End Date Dara Tavera FNP [address] [place] [phone] PCP - General NURSE PRACTITIONER 10/13/18 documented as of this encounter
--- OUTSIDE RECORDS SUMMARY | 2025-05-19 18:40 | XMS_ITS | Encounter Summary ---
Author Organization [facility] Address [address] [place] [address] Care Team Providers Care Merchandising Execution Manager Name Role Phone Dara Tavera Primary Care Provider [phone] Encounter Details Date Type Department Care Team (Latest Contact Info) Description 02/07/2007 Outpatient Historical [facility] [address] [place] [address] AMBULANCE, [facility] Unspecified Nonpsychotic Mental Disorder (Primary Dx) Social History Tobacco Use Types Packs/Day Years Used Date Smoking Tobacco: Never Assessed Comments Unknown Sex and Gender Information Value Date Recorded Sex Assigned at Not on file Legal Sex Female 5:22 AM WOOL BROKER Gender Identity Not on file Sexual Orientation Not on file documented as of this encounter Plan of Treatment Not on file documented as of this encounter Visit Diagnoses Diagnosis Unspecified nonpsychotic mental disorder- Primary documented in this encounter Additional Health Concerns Infection Onset Date Last Indicated Resolved Time VRE Comment:Urine 10/30/13 Resolved 11/04/2013 11/04/2013 8 10:33 AM WOOL BROKER R/O COVID-19 12/25/2019 12/25/2019 12/26/2019 2:46 PM CDT R/O COVID-19 05/09/2020 05/09/2020 05/09/2020 12:1 7 PM WOOL BROKER documented as of this encounter Care Teams Merchandising Execution Manager Relationship Specialty Start Date End Date Dara Tavera FNP [address] [place] [phone] PCP - General NURSE PRACTITIONER 10/13/18 documented as of this encounter
--- OUTSIDE RECORDS SUMMARY | 2025-05-19 18:40 | XMS_ITS | Encounter Summary ---
Author Organization [facility] Address [address] [place] [address] Care Team Providers Care Independent Video Producer Name Role Phone Dara Tavera AMANDEEP Primary Care Provider Encounter Details Date Type Department Care Team (Latest Contact Info) Description 04/24/2008 Outpatient Historical [facility] [address] [place] [address] AMBULANCE, [facility] Unspecified Acute Reaction to Stress; [...] file Legal Sex Female 5:22 AM ASSISTANT PROFESSOR OF ART Gender Identity Not on file Sexual Orientation [...] Resolved 11/04/2013 11/04/2013 8 10:33 AM ASSISTANT PROFESSOR OF ART R/O COVID-19 12/25/2019 12/25/2019 12/26/2019 2:46 PM CDT R/O COVID-05/09/2020 05/09/2020 05/09/2020 12:1 7 PM ASSISTANT PROFESSOR OF ART documented as of this encounter Care Teams Independent Video Producer Relationship Specialty Start Date End Date Dara Tavera FNP [address] [place] [phone] PCP - General NURSE PRACTITIONER 10/13/18 documented as of this encounter
--- OUTSIDE RECORDS SUMMARY | 2025-05-19 18:40 | XMS_ITS | Encounter Summary ---
Author Organization [facility] Address [address] [place] [address] Care Team Providers Care Drug Department Worker Name Role Phone Dara Tavera IRONING WORKER Primary Care Provider Encounter Details Date Type Department Care Team (Late st Contact Info) Description 06/14/2007 Outpatient Historical HIS IN BED Amaury De La Rosa MD NO ADDRESS ON FILE Richie Vargas Jr., MD [address] [place] [address] Social History Tobacco Use Types Packs/Day Years Used Date Smoking Tobacco: Never Assessed Comments Unknown Sex and Gender Information Value Date Recorded Sex Assigned at Not on file Legal Sex Female 5:22 AM GEODUCK DIVER Gender Identity Not on file Sexual Orientation Not on file documented as of this encounter Plan of Treatment Not on file documented as of this encounter Procedures Procedure Name Priority Date/Time Associated Diagnosis Comments URINALYSIS W/REFLEX MICROSCOPIC Routine 06/15/2007 12:13 PM GEODUCK DIVER POC GLUCOSE Routine 06/15/2007 11:42 AM GEODUCK DIVER POC GLUCOSE Routine 06/15/2007 5:10 AM GEODUCK DIVER CARDIAC ENZYMES Routine 06/15/2007 4:21 AM GEODUCK DIVER CBC WITH DIFFERENTIAL Routine 06/15/2007 4:21 AM GEODUCK DIVER TSH Routine 06/15/2007 4:21 AM GEODUCK DIVER T4 FREE Routine 06/15/2007 4:21 AM GEODUCK DIVER LIPID PANEL Routine 06/15/2007 4:21 AM GEODUCK DIVER COMPREHENSIVE METABOLIC PANEL Routine 06/15/2007 4:21 AM GEODUCK DIVER POC GLUCOSE Routine 06/15/2007 2:02 AM GEODUCK DIVER CARDIAC ENZYMES Routine 06/14/2007 10:20 PM GEODUCK DIVER CARDIAC ENZYMES Routine 06/14/2007 4:07 PM GEODUCK DIVER CBC WITH DIFFERENTIAL Routine 06/14/2007 4:07 PM GEODUCK DIVER PTT Routine 06/14/2007 4:07 PM GEODUCK DIVER PROTIME-INR Routine 06/14/2007 4:07 PM GEODUCK DIVER BASIC METABOLIC PANEL Routine 06/14/2007 4:07 PM GEODUCK DIVER documented in this encounter Results * URINALYSIS (06/15/2007 12:13 PM GEODUCK DIVER) COLOR UA Yellow Straw INTERFACE SYSTEM CLARITY [...] No INTERFACE SYSTEM 06/15/2007 12:1 3 PM GEODUCK DIVER us Richie Vargas Jr., MD URINE ORDERABLES Edite d INTERFACE SYSTEM Refer to clinic/hospital department * (ABNORMAL) POC GLUCOSE (06/15/2007 11:42 AM GEODUCK DIVER) GLUCOSE POC 114(H) 60 - 100 mg/dL INTERFACE SYSTEM 06/15/2007 11:4 2 AM GEODUCK DIVER Result Tracey Vargas Jr., MD POINT OF CARE TESTING Edited Performing Organization Address [facility] [place] Phone Number INTERFACE SYSTEM Refer to clinic/hospital department * (ABNORMAL) POC GLUCOSE (06/15/2007 5:10 AM GEODUCK DIVER) GLUCOSE POC 116(H) 60 - 100 mg/dL INTERFACE SYSTEM 06/15/2007 5:10 AM GEODUCK DIVER Result Tracey Vargas Jr., MD POINT OF CARE TESTING Edited Performing Organization Address [facility] [place] Phone Number INTERFACE SYSTEM Refer to clinic/hospital department * TSH (06/15/2007 4:21 AM GEODUCK DIVER) TSH 1.340 0.350 - 5.500 uIU/ml INTERFACE SYSTEM 06/15/2007 4:21 AM GEODUCK DIVER Result Tracey Vargas Jr., MD CHEMISTRY ORDERABLES E dited Performing Organization Address [facility] [place] Phone Number INTERFACE SYSTEM Refer to clinic/hospital department * (ABNORMAL) T4 FREE (06/15/2007 4:21 AM GEODUCK DIVER) T4 FREE 0.64(L) 0.89 - 1.76 ng/dL INTERFACE SYSTEM 06/15/2007 4:21 AM GEODUCK DIVER Result Tracey Vargas Jr., MD CHEMISTRY ORDERABLES E dited Performing Organization Address [facility] Phone Number INTERFACE SYSTEM Refer to clinic/hospital department * (ABNORMAL) LIPID PANEL (06/15/2007 4:21 AM GEODUCK DIVER) CHOLESTEROL 208(H) 75 - 200 mg/dL INTERFACE SYSTEM HDL 41 40 - 60 mg/dL INTERFACE SYSTEM TRIGLYCERIDE 206(H) 0 - 168 mg/dL INTERFACE SYSTEM CALCULATED LDL CHOLESTEROL 126 0 - 130 mg/dL INTERFACE SYSTEM CALCULATED TOTAL CHOLESTEROL TO HDL RATIO 5.07(H) 3.27 - 4.44 INTERFACE SYSTEM 06/15/2007 4:21 AM GEODUCK DIVER Richie Vargas Jr., MD CHEMISTRY ORDERABLES E dited Performing Organization Address [facility] [place] Phone Number INTERFACE SYSTEM Refer to clinic/hospital department * (ABNORMAL) COMPREHENSIVE METABOLIC PANEL (06/15/2007 4:21 AM GEODUCK DIVER) GLUCOSE 94 70 - 110 mg/dL INTERFACE [...] 295 mOsm/Kg INTERFACE SYSTEM 06/15/2007 4:21 AM GEODUCK DIVER Richie Vargas Jr., MD CHEMISTRY ORDERABLES E dited Performing Organization Address [facility] [place] Phone Number INTERFACE SYSTEM Refer to clinic/hospital department * (ABNORMAL) CBC WITH DIFFERENTIAL (06/15/2007 4:21 AM GEODUCK DIVER) WBC 13.1(H) 4.5 - 11.0 K/ul INTERFACE [...] 0.2 K/ul INTERFACE SYSTEM 06/15/2007 4:21 AM GEODUCK DIVER Richie Vargas Jr., MD HEMATOLOGY ORDERABLES Edited Performing Organization Address [facility] [place] de Phone Number INTERFACE SYSTEM Refer to clinic/hospital department * CARDIAC ENZYMES (06/15/2007 4:21 AM GEODUCK DIVER) TROPONIN I <0.1 0.0 - 1.3 ng/mL INTERFACE SYSTEM CKMB 1.0 0.0 - 5.0 ng/mL INTERFACE SYSTEM 06/15/2007 4:21 AM GEODUCK DIVER Amaury De La Rosa MD CHEMISTRY ORDERABLES Edited Performing Organization Address [facility] de Phone Number INTERFACE SYSTEM Refer to clinic/hospital department * (ABNORMAL) POC GLUCOSE (06/15/2007 2:02 AM GEODUCK DIVER) GLUCOSE POC 115(H) 60 - 100 mg/dL INTERFACE SYSTEM 06/15/2007 2:02 AM GEODUCK DIVER us Richie Vargas Jr., MD POINT OF CARE TESTING Edited Performing Organization Address [facility] [place] Phone Number INTERFACE SYSTEM Refer to clinic/hospital department * CARDIAC ENZYMES (06/14/2007 10:20 PM GEODUCK DIVER) Pathologist [facility] TROPONIN I <0.1 0.0 - 1.3 ng/mL INTERFACE SYSTEM CKMB 0.3 0.0 - 5.0 ng/mL INTERFACE SYSTEM 06/14/2007 10:2 0 PM GEODUCK DIVER Amaury De La Rosa MD CHEMISTRY ORDERABLES Edited Performing Organization Address [facility] [place] Phone Number INTERFACE SYSTEM Refer to clinic/hospital department * (ABNORMAL) CBC WITH DIFFERENTIAL (06/14/2007 4:07 PM GEODUCK DIVER) Pathologist [facility] WBC 14.3(H) 4.5 - 11.0 K/ul [...] 0.2 K/ul INTERFACE SYSTEM 06/14/2007 4:07 PM GEODUCK DIVER Amaury De La Rosa MD HEMATOLOGY ORDERABLES Edited Performing Organization Address [facility] Phone Number INTERFACE SYSTEM Refer to clinic/hospital department * PTT (06/14/2007 4:07 PM GEODUCK DIVER) PTT 34.4 21.6 - 35.6 Secs INTERFACE SYSTEM 06/14/2007 4:07 PM GEODUCK DIVER Amaury De La Rosa MD HEMATOLOGY ORDERABLES Edited Performing Organization Address [facility] [place] Phone Number INTERFACE SYSTEM Refer to clinic/hospital department * PROTIME-INR (06/14/2007 4:07 PM GEODUCK DIVER) PROTIME 14.0 13.0 - 15.7 Secs INTERFACE SYSTEM INR 1.0 INTERFACE SYSTEM 06/14/2007 4:07 PM GEODUCK DIVER Amaury De La Rosa MD HEMATOLOGY ORDERABLES Edited Performing Organization Address [facility] [place] Phone Number INTERFACE SYSTEM Refer to clinic/hospital department * (ABNORMAL) BASIC METABOLIC PANEL (06/14/2007 4:07 PM GEODUCK DIVER) GLUCOSE 90 70 - 110 mg/dL INTERFACE [...] 295 mOsm/Kg INTERFACE SYSTEM 06/14/2007 4:07 PM GEODUCK DIVER Amaury De La Rosa MD CHEMISTRY ORDERABLES Edited Performing Organization Address [facility] de Phone Number INTERFACE SYSTEM Refer to clinic/hospital department * CARDIAC ENZYMES (06/14/2007 4:07 PM GEODUCK DIVER) TROPONIN I <0.1 0.0 - 1.3 ng/mL INTERFACE SYSTEM CKMB 1.3 0.0 - 5.0 ng/mL INTERFACE SYSTEM 06/14/2007 4:07 PM GEODUCK DIVER Amaury De La Rosa MD CHEMISTRY ORDERABLES Edited Performing Organization Address [facility] [place] Phone Number INTERFACE SYSTEM Refer to clinic/hospital department documented in this encounter Visit Diagnoses Not on filedocumented in this encounter Additional Health Concerns Infection Onset Date Last Indicated Resolved Time VRE Comment:Urine 10/30/13 Resolved 11/04/2013 11/04/2013 8 10:33 AM GEODUCK DIVER R/O COVID-19 12/25/2019 12/25/2019 12/26/2019 2:46 PM CDT R/O COVID-19 05/09/2020 05/09/2020 05/09/2020 12:1 7 PM GEODUCK DIVER documented as of this encounter Care Teams Drug Department Worker Relationship Specialty Start Date End Date Dara Tavera FNP [address] [place] [phone] PCP - General NURSE PRACTITIONER 10/13/18 documented as of this encounter
--- OUTSIDE RECORDS SUMMARY | 2025-05-19 18:40 | XMS_ITS | Encounter Summary ---
Author Organization [facility] Address [address] [place] [address] Care Team Providers Care Construction Equipment Operator Name Role Phone Dara Tavera MEDICAL AFFAIRS LEADER Primary Care Provider Encounter Details Date Type Department Care Team (Late st Contact Info) Description 02/13/2007 Outpatient Historical HIS RAD [facility] Alisa Ross MD [address] [place] [id number] Social History Tobacco Use Types Packs/Day Years Used Date Smoking Tobacco: Never Assessed Comments Unknown Sex and Gender Information Value Date Recorded Sex Assigned at Not on file Legal Sex Female 5:22 AM FILE SYSTEM INSTALLER Gender Identity Not on file Sexual [...] 10/30/13 Resolved 11/04/2013 11/04/2013 8 10:33 AM FILE SYSTEM INSTALLER R/O COVID-19 12/25/2019 12/25/2019 12/26/2019 2:46 PM CDT R/O COVID-19 05/09/2020 05/09/2020 05/09/2020 12:1 7 PM FILE SYSTEM INSTALLER documented as of this encounter Care Teams Construction Equipment Operator Relationship Specialty Start Date End Date Dara Tavera FNP [address] [place] [phone] PCP - General NURSE PRACTITIONER 10/13/18 documented as of this encounter
--- OUTSIDE RECORDS SUMMARY | 2025-05-19 18:40 | XMS_ITS | Encounter Summary ---
Author Organization [facility] Address [address] [place] [address] Care Team Providers Care Clam Bed Worker Name Role Phone Dara Tavera Primary Care Provider Encounter Details Date Type Department Care Team (Latest Contact Info) Description 02/26/2007 Outpatient Historical [facility] [address] [place] [address] AMBULANCE, [facility] Abdominal Pain, Unspecified Site (Primary Dx) Social History Tobacco Use Types Packs/Day Years Used Date Smoking Tobacco: Never Assessed Comments Unknown Sex and Gender Information Value Date Recorded Sex Assigned at Not on file Legal Sex Female 5:22 AM OFFAL TRIMMER Gender Identity Not on file Sexual Orientation Not on file documented as of this encounter Plan of Treatment Not on file documented as of this encounter Visit Diagnoses Diagnosis Abdominal pain, unspecified site- Primary documented in this encounter Additional Health Concerns Infection Onset Date Last Indicated Resolved Time VRE Comment:Urine 10/30/13 Resolved 11/04/2013 11/04/2013 8 10:33 AM OFFAL TRIMMER R/O COVID-19 12/25/2019 12/25/2019 12/26/2019 2:46 PM CDT R/O COVID-19 05/09/2020 05/09/2020 05/09/2020 12:1 7 PM OFFAL TRIMMER documented as of this encounter Care Teams Clam Bed Worker Relationship Specialty Start Date End Date Dara Tavera FNP [address] [place] [phone] PCP - General NURSE PRACTITIONER 10/13/18 documented as of this encounter
--- OUTSIDE RECORDS SUMMARY | 2025-05-19 18:40 | XMS_ITS | Encounter Summary ---
Author Organization [facility] Address [address] [place] [address] Care Team Providers Care Professor Of Sociology Name Role Phone Dara Tavera Primary Care Provider Encounter Details Date Type Department Care Team (Latest Contact Info) Description 09/19/2005 Outpatient Historical [facility] [address] [place] [address] AMBULANCE, [facility] Hemorrhage Complicating a Procedure (Primary Dx) Social History Tobacco Use Types Packs/Day Years Used Date Smoking Tobacco: Never Assessed Comments Unknown Sex and Gender Information Value Date Recorded Sex Assigned at Not on file Legal Sex Female 5:22 AM DISPLAY MAKER Gender Identity Not on file Sexual Orientation Not on file documented as of this encounter Plan of Treatment Not on file documented as of this encounter Visit Diagnoses Diagnosis Hemorrhage complicating a procedure- Primary documented in this encounter Additional Health Concerns Infection Onset Date Last Indicated Resolved Time VRE Comment:Urine 10/30/13 Resolved 11/04/2013 11/04/2013 8 10:33 AM DISPLAY MAKER R/O COVID-19 12/25/2019 12/25/2019 12/26/2019 2:46 PM CDT R/O COVID-19 05/09/2020 05/09/2020 05/09/2020 12:1 7 PM DISPLAY MAKER documented as of this encounter Care Teams Professor Of Sociology Relationship Specialty Start Date End Date Dara Tavera FNP [address] [place] [address] PCP - General NURSE PRACTITIONER 10/13/18 documented as of this encounter
--- OUTSIDE RECORDS SUMMARY | 2025-05-19 18:40 | XMS_ITS | Encounter Summary ---
Author Organization [facility] Address [address] [place] [address] Care Team Providers Care Network Planner Name Role Phone Dara Tavera AMANDEEP Primary Care Provider Encounter Details Date Type Department Care Team (Late st Contact Info) Description 04/26/2007 Emergency [facility] Emergency Department [address] [place] [address] Kenney Simmons MD [address] [place] [address] Abdominal Pain, Other Specified Site (Primary Dx) Social History Tobacco Use Types Packs/Day Years Used Date Smoking Tobacco: Never Assessed Comments Unknown Sex and Gender Information Value Date Recorded Sex Assigned at Not on file Legal Sex Female 5:22 AM MOTEL KEEPER Gender Identity Not on file Sexual Orientation Not on file documented as of this encounter Plan of Treatment Not on file documented as of this encounter Procedures Procedure Name Priority Date/Time Associated Diagnosis Comments URINALYSIS W/REFLEX MICROSCOPIC Routine 04/26/2007 11:[address] URINARY CALCULI WO CONTRAST Routine 04/26/2007 11:22 PM MOTEL KEEPER documented in this encounter Results * (ABNORMAL) URINALYSIS (04/26/2007 11:48 PM MOTEL KEEPER) COLOR UA Yellow Straw INTERFACE SYSTEM CLARITY [...] No INTERFACE SYSTEM 04/26/2007 11:4 8 PM MOTEL KEEPER us Physician Sj Ed URINE ORDERABLES Edited INTERFACE SYSTEM Refer to clinic/hospital department * CT RENAL COLIC WO CONT (04/26/2007 11:22 PM MOTEL KEEPER) Anatomical Region Laterality Modality Abdomen Other 04/26/2007 11:2 2 PM MOTEL KEEPER Narrative 04/26/2007 11:[address] Scan For Renal Colic: Date: 04/27/2007History: [...] degenerative changes in the spine. 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 Impression: No urinary [...] 10/30/13 Resolved 11/04/2013 11/04/2013 8 10:33 AM MOTEL KEEPER R/O COVID-19 12/25/2019 12/25/2019 12/26/2019 2:46 PM CDT R/O COVID-19 05/09/2020 05/09/2020 05/09/2020 12:1 7 PM MOTEL KEEPER documented as of this encounter Care Teams Network Planner Relationship Specialty Start Date End Date Dara Tavera FNP [address] [place] [phone] PCP - General NURSE PRACTITIONER 10/13/18 documented as of this encounter
--- OUTSIDE RECORDS SUMMARY | 2025-05-19 18:40 | XMS_ITS | Encounter Summary ---
Author Organization [facility] Address [address] [place] [address] Care Team Providers Care E Business Consultant Name Role Phone Dara aTvera AMANDEEP Primary Care Provider Encounter Details Date Type Department Care Team (Latest Contact Info) Description 07/10/2020 Ancillary Orders [facility] Centralized Scheduling [address] [place] [address] Don Loja MD [address] [place] [address] Abdominal pain, unspecified abdominal location; [...] How often do you attend anabaptist or cheondoism serv ices? Not asked 05/05/2019 Do you [...] file Legal Sex Female 5:22 AM AUTO TRANSPORT DRIVER Gender Identity Not on file Sexual [...] COVID-19? No / Unsure 07/08/2020 6:45 PM AUTO TRANSPORT DRIVER documented as of this encounter Plan of Treatment Not on file documented as of this encounter Visit Diagnoses Diagnosis Abdominal pain, unspecified abdominal location Change in bowel habit documented in this encounter Care Teams E Business Consultant Relationship Specialty Start Date End Date Dara Tavera FNP [address] [place] [phone] PCP - General NURSE PRACTITIONER 10/13/18 documented as of this encounter
--- OUTSIDE RECORDS SUMMARY | 2025-05-19 18:40 | XMS_ITS | Encounter Summary ---
Author Organization [facility] Address [address] [place] [address] Care Team Providers Care Radiation Physicist Name Role Phone Dara Tavera AMANDEEP Primary Care Provider Encounter Details Date Type Department Care Team (Late st Contact Info) Description 04/04/2007 Emergency [facility] Emergency Department [address] [place] [address] Thiago Mota MD NO ADDRESS ON FILE Painful Respiration (Primary Dx) Social History Tobacco Use Types Packs/Day Years Used Date Smoking Tobacco: Never Assessed Comments Unknown Sex and Gender Information Value Date Recorded Sex Assigned at Not on file Legal Sex Female 5:22 AM WIDE LOAD ESCORT Gender Identity Not on file Sexual Orientation [...] MD URINE ORDERABLES Edited Performing Organization Address [facility] Phone Number INTERFACE SYSTEM Refer to clinic/hospital department * CARDIAC ENZYMES (04/04/2007 12:00 PM CDT) Pathologist [facility] TROPONIN I <0.1 0.0 - 1.3 ng/mL INTERFACE SYSTEM Comment: As of 06 the Troponin Reference Range has changed from 0.0-1.5 ng/ml to 0.0- 1.3 ng/ml due to a change in testing methodology. CKMB 0.7 0.0 - 5.0 ng/mL INTERFACE SYSTEM 04/04/2007 12:0 0 PM CDT Thiago Mota MD CHEMISTRY ORDERABLES Edited Performing Organization Address [facility] Phone Number INTERFACE SYSTEM Refer to clinic/hospital department documented in this encounter Visit Diagnoses Diagnosis Painful respiration- Primary documented in this encounter Additional Health Concerns Infection Onset Date Last Indicated Resolved Time VRE Comment:Urine 10/30/13 Resolved 11/04/2013 11/04/2013 8 10:33 AM WIDE LOAD ESCORT R/O COVID-19 12/25/2019 12/25/2019 12/26/2019 2:46 PM CDT R/O COVID-19 05/09/2020 05/09/202005/09/2020 12:1 7 PM WIDE LOAD ESCORT documented as of this encounter Care Teams Radiation Physicist Relationship Specialty Start Date End Date Dara Tavera FNP [address] [place] [phone] PCP - General NURSE PRACTITIONER 10/13/18 documented as of this encounter
--- OUTSIDE RECORDS SUMMARY | 2025-05-19 18:40 | XMS_ITS | Encounter Summary ---
Author Organization [facility] Address [address] [place] [address] Care Team Providers Care Sr. Manager Name Role Phone Dara Tavera AMANDEEP Primary Care Provider Encounter Details Date Type Department Care Team (Late st Contact Info) Description 04/18/2007 Inpatient Historical HIS IN BED Pawan Rosario MD [address] [place] [address] Bipolar Affective, Mixed, Sev w/ Psych (CMS/HCC) (Primary Dx) Social History Tobacco Use Types Packs/Day Years Used Date Smoking Tobacco: Never Assessed Comments Unknown Sex and Gender Information Value Date Recorded Sex Assigned at Not on file Legal Sex Female 5:22 AM ELECTRONIC SYSTEMS TECHNICIAN Gender Identity Not on file Sexual Orientation Not on file documented as of this encounter Plan of Treatment Not on file documented as of this encounter Procedures Procedure Name Priority Date/Time Associated Diagnosis Comments URINALYSIS W/REFLEX MICROSCOPIC Routine 04/22/2007 9:05 AM ELECTRONIC SYSTEMS TECHNICIAN LIPASE Routine 04/18/2007 10:54 AM CDT AMYLASE Routine 04/18/2007 10:54 AM CDT CBC WITH DIFFERENTIAL Routine 04/18/2007 10:48 AM CDT TSH Routine 04/18/2007 10:48 AM CDT ETHANOL LEVEL Routine 04/18/2007 10:48 AM CDT COMPREHENSIVE METABOLIC PANEL Routine 04/18/2007 10:48 AM CDT DRUG SCREEN, URINE Routine 04/18/2007 9: 47 AM CDT documented in this encounter Results * URINALYSIS (04/22/2007 9:05 AM ELECTRONIC SYSTEMS TECHNICIAN) COLOR UA Yellow Straw INTERFACE SYSTEM [...] No No INTERFACE SYSTEM 04/22/2007 9:05 AM ELECTRONIC SYSTEMS TECHNICIAN us Pawan Rosario MD URINE ORDERABLES Edited Performing Organization Address [facility] Phone Number INTERFACE SYSTEM Refer to clinic/hospital department * LIPASE (04/18/2007 10:54 AM CDT) LIPASE 36 6 - 51 U/L INTERFACE SYSTEM 04/18/2007 10:5 4 AM CDT Benedicto Rojo MD CHEMISTRY ORDERABLES Edited Performing Organization Address [facility] Phone Number INTERFACE SYSTEM Refer to clinic/hospital department * AMYLASE (04/18/2007 10:54 AM CDT) AMYLASE 46 20 - 104 U/L INTERFACE SYSTEM 04/18/2007 10:5 4 AM CDT Benedicto Rojo MD CHEMISTRY ORDERABLES Edited Performing Organization Address [facility] Phone Number INTERFACE SYSTEM [...] Comment: As of 04 at 3:00 p.m. [facility] has changed the methodology for TSH, and with this change the reference range has changed from 0.49-4.67 to 0.35-5.5 uIU/ml. 04/18/2007 10:4 8 AM CDT Benedicto Rojo MD CHEMISTRY ORDERABLES Edited Performing Organization Address [facility] Phone Number INTERFACE SYSTEM [...] MD CHEMISTRY ORDERABLES Edited Performing Organization Address [facility] Phone Number INTERFACE SYSTEM Refer to clinic/hospital department * ETHANOL (04/18/2007 10:48 AM CDT) ETHANOL <10 <=10 mg/dL INTERFACE SYSTEM ETHANOL % <0.010 <=0.010 % INTERFACE SYSTEM Comment: Beginning August 01, 2006, the Blood Alcohol from [facility] will be reported in % as well as mg/dl. 04/18/2007 10:4 8 AM CDT Benedicto Rojo MD CHEMISTRY ORDERABLES Edited Performing Organization Address [facility] Phone Number INTERFACE SYSTEM Refer [...] MD URINE ORDERABLES Edited Performing Organization Address [facility] Phone Number INTERFACE SYSTEM Refer to clinic/hospital department documented in this encounter Visit Diagnoses Diagnosis Bipolar I disorder, most recent episode (or current) mixed, severe, specified as with psychotic behavior ([facility])- Primary Bipolar I disorder, most recent episode (or current) mixed, severe, specified as with psychotic behavior documented in this encounter Additional Health Concerns Infection Onset Date Last Indicated Resolved Time VRE Comment:Urine 10/30/13 Resolved 11/04/2013 11/04/2013 8 10:33 AM ELECTRONIC SYSTEMS TECHNICIAN R/O COVID-19 12/25/2019 12/25/2019 12/26/2019 2:46 PM CDT R/O COVID-19 05/09/2020 05/09/2020 05/09/2020 12:1 7 PM ELECTRONIC SYSTEMS TECHNICIAN documented as of this encounter Care Teams Sr. Manager Relationship Specialty Start Date End Date Dara Tavera FNP [address] [place] [address] PCP - General NURSE PRACTITIONER 10/13/18 documented as of this encounter
--- OUTSIDE RECORDS SUMMARY | 2025-05-19 18:40 | XMS_ITS | Encounter Summary ---
Author Organization [facility] Address [address] [place] [address] Care Team Providers Care Larry Operator Name Role Phone Dara Tavera Primary Care Provider [phone] Encounter Details Date Type Department Care Team (Late st Contact Info) Description 05/08/2007 Emergency [facility] [address] [place] [address] [place], NO ADDRESS ON FILE Shortness of Breath (Primary Dx) Social History Tobacco Use Types Packs/Day Years Used Date Smoking Tobacco: Never Assessed Comments Unknown Sex and Gender Information Value Date Recorded Sex Assigned at Not on file Legal Sex Female 5:22 AM 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 SPRAYING MACHINE 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 Gender Identity Not on file Sexual Orientation Not on file documented as of this encounter Plan of Treatment Not on file documented as of this encounter Visit Diagnoses Diagnosis Shortness of breath- Primary documented in this encounter Additional Health Concerns Infection Onset Date Last Indicated Resolved Time VRE Comment:Urine 10/30/13 Resolved 11/04/2013 11/04/2013 8 10:33 AM METAL SPRAYING MACHINE OPERATOR R/O COVID-19 12/25/2019 12/25/2019 12/26/2019 2:46 PM CDT R/O COVID-19 05/09/2020 05/09/2020 05/09/2020 12:1 7 PM METAL SPRAYING MACHINE OPERATOR documented as of this encounter Care Teams Larry Operator Relationship Specialty Start Date End Date Dara Tavera FNP [address] [place] [address] PCP - General NURSE PRACTITIONER 10/13/18 documented as of this encounter
--- OUTSIDE RECORDS SUMMARY | 2025-05-19 18:40 | XMS_ITS | Encounter Summary ---
Author Organization [facility] Address [address] [place] [address] Care Team Providers Care Microsoft Exchange Architect Name Role Phone Dara Tavera Primary Care Provider Encounter Details Date Type Department Care Team (Latest Contact Info) Description 12/16/2005 Outpatient Historical [facility] [address] [place] [address] AMBULANCE, [facility] Unspecified Nonpsychotic Mental Disorder (Primary Dx) Social History Tobacco Use Types Packs/Day Years Used Date Smoking Tobacco: Never Assessed Comments Unknown Sex and Gender Information Value Date Recorded Sex Assigned at Not on file Legal Sex Female 5:22 AM EASTERN PHILOSOPHY PROFESSOR Gender Identity Not on file Sexual Orientation Not on file documented as of this encounter Plan of Treatment Not on file documented as of this encounter Visit Diagnoses Diagnosis Unspecified nonpsychotic mental disorder- Primary documented in this encounter Additional Health Concerns Infection Onset Date Last Indicated Resolved Time VRE Comment:Urine 10/30/13 Resolved 11/04/2013 11/04/2013 8 10:33 AM EASTERN PHILOSOPHY PROFESSOR R/O COVID-19 12/25/2019 12/25/2019 12/26/2019 2:46 PM CDT R/O COVID-19 05/09/2020 05/09/2020 05/09/2020 12:1 7 PM EASTERN PHILOSOPHY PROFESSOR documented as of this encounter Care Teams Microsoft Exchange Architect Relationship Specialty Start Date End Date Dara Tavera FNP [address] [place] [phone] PCP - General NURSE PRACTITIONER 10/13/18 documented as of this encounter
--- OUTSIDE RECORDS SUMMARY | 2025-05-19 18:40 | XMS_ITS | Encounter Summary ---
Author Organization [facility] Address [address] [place] [address] Care Team Providers Care Sprayer Machine Name Role Phone Dara Tavera AMANDEEP Primary Care Provider Encounter Details Date Type Department Care Team (Late st Contact Info) Description 06/03/2007 Emergency [facility] Emergency Department [address] [place] [address] Ed, Physician NO ADDRESS ON FILE Oniel Sainz MD [address] [place] [address] Social History Tobacco Use Types Packs/Day Years Used Date Smoking Tobacco: Never Assessed Comments Unknown Sex and Gender Information Value Date Recorded Sex Assigned at Not on file Legal Sex Female 5:22 AM LANGUAGE THERAPIST Gender Identity Not on file Sexual Orientation Not on file documented as of this encounter Plan of Treatment Not on file documented as of this encounter Procedures Procedure Name Priority Date/Time Associated Diagnosis Comments CBC WITH DIFFERENTIAL Routine 06/03/2007 9:39 PM LANGUAGE THERAPIST COMPREHENSIVE METABOLIC PANEL Routine 06/03/2007 9:39 PM LANGUAGE THERAPIST URINALYSIS W/REFLEX MICROSCOPIC Routine 06/03/2007 9:26 PM LANGUAGE THERAPIST documented in this encounter Results * (ABNORMAL) COMPREHENSIVE METABOLIC PANEL (06/03/2007 9:39 PM LANGUAGE THERAPIST) [facility] GLUCOSE 97 70 - 110 mg/dL INTERFACE [...] 295 mOsm/Kg INTERFACE SYSTEM 06/03/2007 9:39 PM LANGUAGE THERAPIST us Oniel Sainz MD CHEMISTRY ORDERABLES Edited INTERFACE SYSTEM Refer to clinic/hospital department * (ABNORMAL) CBC WITH DIFFERENTIAL (06/03/2007 9:39 PM LANGUAGE THERAPIST) Pathologist [facility] WBC 9.5 4.5 - 11.0 K/ul INTERFACE [...] 0.2 K/ul INTERFACE SYSTEM 06/03/2007 9:39 PM LANGUAGE THERAPIST Oniel Sainz MD HEMATOLOGY ORDERABLES Edited Performing Organization Address City/[facility] de Phone Number INTERFACE SYSTEM Refer to clinic/hospital department * URINALYSIS (06/03/2007 9:26 PM LANGUAGE THERAPIST) COLOR UA Yellow Straw INTERFACE SYSTEM CLARITY [...] No No INTERFACE SYSTEM 06/03/2007 9:26 PM LANGUAGE THERAPIST Oniel Sainz MD URINE ORDERABLES Edited Performing Organization Address City/[facility] Co de Phone Number INTERFACE SYSTEM Refer to clinic/hospital department documented in this encounter Visit Diagnoses Not on filedocumented in this encounter Additional Health Concerns Infection Onset Date Last Indicated Resolved Time VRE Comment:Urine 10/30/13 Resolved 11/04/2013 11/04/2013 8 10:33 AM LANGUAGE THERAPIST R/O COVID-19 12/25/2019 12/25/2019 12/26/2019 2:46 PM CDT R/O COVID-19 05/09/2020 05/09/2020 05/09/2020 12:1 7 PM LANGUAGE THERAPIST documented as of this encounter Care Teams Sprayer Machine Relationship Specialty Start Date End Date Dara Tavera FNP [address] [place] [address] PCP - General NURSE PRACTITIONER 10/13/18 documented as of this encounter
--- OUTSIDE RECORDS SUMMARY | 2025-05-19 18:40 | XMS_ITS | Encounter Summary ---
Author Organization [facility] Address [address] [place] [address] Care Team Providers Care 3D Designer Name Role Phone Dara Tavrea [employer] Primary Care Provider [phone] Encounter Details Date Type Department Care Team [...] on file Legal Sex Female 5:22 AM SOLE BLACKER Gender Identity Not on file Sexual Orientation Not on file documented as of this encounter Progress Notes * Nam Calvo MD - 06/04/2008 9:18 AM CST NAME LATESHA WILHELM PATIENT # [id number] 1965 AGE 42Y PHYSICIAN NAM CALVO MD/[id number] ADMITTED 05/11/2008 DISMISSED 05/12/2008 REVISED DOCUMENT: 07/11/2008 [...] activated. She was brought in to [facility] where she had head CT. Fortunately, [...] Econazole nitrate cream applied topically. NAM CALVO MD/[id number]/ [id number] REV/BL [id number] - 07/11/2008 - [facility] BLACKER documented in this encounter Plan of Treatment Not on file documented as of this encounter Procedures Procedure Name Priority Date/Time Associated Diagnosis Comments CARDIAC ENZYMES Routine 05/12/2008 4:45 AM SOLE BLACKER CBC WITH DIFFERENTIAL Routine 05/12/2008 4:45 AM SOLE BLACKER TSH Routine 05/12/2008 4:45 AM SOLE BLACKER COMPREHENSIVE METABOLIC PANEL Routine 05/12/2008 4:45 AM SOLE BLACKER CARDIAC ENZYMES Routine 05/11/2008 10:13 PM SOLE BLACKER D-DIMER Routine 05/11/2008 10:13 PM SOLE BLACKER CARDIAC ENZYMES Routine 05/11/2008 3:50 PM SOLE BLACKER XR CHEST PA OR AP 1 VW Routine 8 1:07 PM SOLE BLACKER MRSA CULTURE Routine 05/11/2008 10:37 AM SOLE BLACKER URINALYSIS W/REFLEX MICROSCOPIC Routine 05/11/2008 5:41 AM SOLE BLACKER documented in this encounter Results * (ABNORMAL) CBC WITH DIFFERENTIAL (05/12/2008 4:45 AM SOLE BLACKER) HEMATOCRIT 36.0 36.0 - 46.0 % [facility] EOSINOPHILS 5.1 0.0 - 7.0 % [facility] PLATELETS 207 140 - 440 K/ul [facility] EOSINOPHIL ABSOLUTE 0.4 0.0 - 0.7 K/ul [facility] RBC 3.92(L) 4.20 - 5.40 Mil/ul [facility] LYMPHOCYTES 35.9 24.0 - 44.0 % [facility] MCHC 33.3 30.0 - 35.0 g/dL [facility] LYMPHOCYTE ABSOLUTE 2.6 1.2 - 4.0 K/ul [facility] MCV 91.8 84.0 - 103.0 Fl [facility] MPV 10.4 8.9 - 12.8 Fl [facility] BASOPHILS ABSOLUTE 0.1 0.0 - 0.2 K/ul [facility] BASOPHILS 1.1(H) 0.0 - 1.0 % [facility] HEMOGLOBIN 12.0 12.0 - 16.0 g/dL [facility] RDW 14.4 11.0 - 14.5 % [facility] MONOCYTE ABSOLUTE 0.5 0.1 - 0.6 K/ul [facility] MONOCYTES 7.4 2.0 - 10.0 % [facility] WBC 7.2 4.5 - 11.0 K/ul [facility] MCH 30.6 27.0 - 34.0 pg [facility] NEUTROPHIL ABSOLUTE 3.6 2.0 - 8.0 K/ul [facility] NEUTROPHILS 50.5 42.2 - 75.2 % [facility] Blood specimen (specimen) 05/12/2008 4:45 AM SOLE BLACKER 05/12/2008 4:45 AM SOLE BLACKER Murphy Espitia MD HEMATOLOGY ORDERABLES Final Res ult Performing Organization Address [facility] de Phone Number INTERFACE SYSTEM Refer to clinic/hospital department [facility] CLIA# [id number] [address] [place] [address] * TSH (05/12/2008 4:45 AM SOLE BLACKER) TSH 2.120 0.350 - 5.500 uIU/ml [facility] Blood specimen (specimen) 05/12/2008 4:45 AM SOLE BLACKER 05/12/2008 4:45 AM SOLE BLACKER Murphy Espitia MD CHEMISTRY ORDERABLES Final Resu lt Performing Organization Address [facility] de Phone Number INTERFACE SYSTEM Refer to clinic/hospital department [facility] CLIA# [id number] [address] [place] [address] * (ABNORMAL) COMPREHENSIVE METABOLIC PANEL (05/12/2008 4:45 AM SOLE BLACKER) CALCIUM 8.5 8.4 - 10.5 mg/dL [facility] CREATININE 0.8 0.7 - 1.2 mg/dL [facility] ALT 18 4 - 36 IU/L [facility] GLUCOSE 115(H) 70 - 110 mg/dL [facility] CHLORIDE 109 95 - 110 mEq/L [facility] OSMOLALITY, CALCULATED 282 275 - 295 mOsm/Kg [facility] ALKALINE PHOSPHATASE 110(H) 25 - 100 U/L [facility] GLOBULIN (CALC) 2.7 2.4 - 3.9 g/dL [facility] SODIUM 137 136 - 145 mEq/L [facility] BILIRUBIN TOTAL 0.1(L) 0.3 - 1.2 mg/dL [facility] TOTAL PROTEIN 6.2(L) 6.3 - 8.2 g/dL [facility] BUN 9 7 - 17 mg/dL [facility] AST 22 8 - 33 U/L [facility] CO2 24 22 - 32 mmol/l [facility] ALBUMIN/GLOBULIN RATIO 1.3 1.0 - 2.3 [facility] ALBUMIN 3.5 3.5 - 5.0 g/dL [facility] POTASSIUM 4.2 3.5 - 5.0 mEq/L [facility] ANION GAP 8(L) 9 - 20 mEq/L [facility] Blood specimen (specimen) 05/12/2008 4:45 AM SOLE BLACKER 05/12/2008 4:45 AM SOLE BLACKER Murphy Espitia MD CHEMISTRY ORDERABLES Final Resu lt Performing Organization Address City/[facility] de Phone Number INTERFACE SYSTEM Refer to clinic/hospital department [facility] CLIA# [id number] [address] [place] [address] * CARDIAC ENZYMES (05/12/2008 4:45 AM SOLE BLACKER) TROPONIN I <0.1 0.0 - 1.3 ng/mL [facility] CKMB 0.3 0.0 - 5.0 ng/mL [facility] Blood specimen (specimen) 05/12/2008 4:45 AM SOLE BLACKER 05/12/2008 4:45 AM SOLE BLACKER us Murphy Espitia MD CHEMISTRY ORDERABLES Final Resu lt Performing Organization Address [facility] de Phone Number INTERFACE SYSTEM Refer to clinic/hospital department [facility] CLIA# [id number] [address] [place] [address] * CARDIAC ENZYMES (05/11/2008 10:13 PM SOLE BLACKER) TROPONIN I <0.1 0.0 - 1.3 ng/mL [facility] CKMB 0.2 0.0 - 5.0 ng/mL [facility] Blood specimen (specimen) 05/11/2008 10:13 PM SOLE BLACKER 05/11/2008 10:13 PM SOLE BLACKER Murphy Espitia MD CHEMISTRY ORDERABLES Final Resu lt Performing Organization Address [facility] Phone Number INTERFACE SYSTEM Refer to clinic/hospital department [facility] CLIA# [id number] [address] [place] [address] * D-DIMER (05/11/2008 10:13 PM SOLE BLACKER) Pathologist [facility] D-DIMER QUANT 0.4 0.0 - 0.5 mcg/mL [facility] Comment: Testing performed using the [...] range. Blood specimen (specimen) 05/11/2008 10:13 PM SOLE BLACKER 05/11/2008 10:13 PM SOLE BLACKER Murphy Espitia MD HEMATOLOGY ORDERABLES Final Res ult Performing Organization Address [facility] Phone Number INTERFACE SYSTEM Refer to clinic/hospital department [facility] CLIA# [id number] [address] [place] [address] * CARDIAC ENZYMES (05/11/2008 3:50 PM SOLE BLACKER) Pathologist [facility] TROPONIN I <0.1 0.0 - 1.3 ng/mL [facility] CKMB 0.2 0.0 - 5.0 ng/mL [facility] Blood specimen (specimen) 05/11/2008 3:50 PM SOLE BLACKER 05/11/2008 4:01 PM SOLE BLACKER us Murphy Espitia MD CHEMISTRY ORDERABLES Final Resu lt Performing Organization Address [facility] de Phone Number INTERFACE SYSTEM Refer to clinic/hospital department [facility] CLIA# [id number] [address] [place] [address] * XR CHEST PA OR AP (05/11/2008 1:07 PM SOLE BLACKER) Anatomical Region Laterality Modality Chest Other 05/11/2008 1:07 PM SOLE BLACKER Narrative 05/11/2008 4:41 PM SOLE BLACKER Exam: Chest - Portable Date/Time of Exam: [...] Result * MRSA CULTURE (05/11/2008 10:37 AM SOLE BLACKER) FINAL REPORT Culture screen for MRSA negative INTERFACE SYSTEM ANTERIOR NARES SWAB / Unknown 05/11/2008 10:37 AM SOLE BLACKER 05/11/2008 10:37 AM SOLE BLACKER us Murphy Espitia MD MICROBIOLOGY - GENERAL ORDERABL ES Final Result INTERFACE SYSTEM Refer to clinic/hospital department * URINALYSIS (05/11/2008 5:41 AM SOLE BLACKER) NITRITE UA NEGATIVE NEGATIVE [facility] UROBILINOGEN UA 0.2 0.2 [facility] CLARITY UA SL CLOUDY Clear [facility] SPECIFIC GRAVITY UA 1.015 <=1.005 [facility] GLUCOSE UA NEGATIVE NEGATIVE [facility] PH UA 8.0 5.0 - 9.0 [facility] BILIRUBIN UA NEGATIVE NEGATIVE [facility] LEUKOCYTE ESTERASE UA NEGATIVE NEGATIVE [facility] KETONES UA NEGATIVE NEGATIVE [facility] MICRO EXAM No No [facility] COLOR UA Yellow Straw [facility] PROTEIN UA NEGATIVE NEGATIVE [facility] BLOOD UA NEGATIVE NEGATIVE [facility] Urine specimen (specimen) 05/11/2008 5:41 AM SOLE BLACKER 05/11/2008 5:41 AM SOLE BLACKER us Murphy Espitia MD URINE ORDERABLES Final Result Performing Organization Address City/State/[facility] [place] Phone Number INTERFACE SYSTEM Refer to clinic/hospital department [facility] CLIA# [id number] [address] [place] [address] documented in this encounter Visit Diagnoses Diagnosis Poisoning by unspecified drug or medicinal substance(977.9) Poisoning by unspecified drug or medicinal substance documented in this encounter Additional Health Concerns Infection Onset Date Last Indicated Resolved Time VRE Comment:Urine 10/30/13 Resolved 11/04/2013 11/04/2013 8 10:33 AM SOLE BLACKER R/O COVID-19 12/25/2019 12/25/2019 12/26/2019 2:46 PM CDT R/O COVID-19 05/09/2020 05/09/2020 05/09/2020 12:1 7 PM SOLE BLACKER documented as of this encounter Care Teams 3D Designer Relationship Specialty Start Date End Date Dara Tavera FNP [address] [place] [address] PCP - General NURSE PRACTITIONER 10/13/18 documented as of this encounter
--- OUTSIDE RECORDS SUMMARY | 2025-05-19 18:40 | XMS_ITS | Encounter Summary ---
Author Organization [facility] Address [address] [place] [address] Care Team Providers Care Clinic Physician Director Name Role Phone Dara Tavera Primary Care Provider Encounter Details Date Type Department Care Team (Late st Contact Info) Description 09/07/2020 Ancillary Orders [email or web address] [facility] [address] [place] [address] Dara Tavera FNP [address] [place] [address] Pain in left foot Social [...] asked 05/05/2019 How often do you attend oriental orthodox or restorationist serv ices? Not asked 05/05/2019 Do you belong to any clubs o r organizations such as oriental orthodox groups, unions, fraternal or athletic groups, or [...] file Legal Sex Female 5:22 AM INSURANCE SALES ASSOCIATE Gender Identity Not on file Sexual [...] union. 3. Osteoarthritis of the tarsometatarsal joints. [id number] Narrative Procedure Note Akira Liu MD - [...] union. 3. Osteoarthritis of the tarsometatarsal joints. [id number] Dara [facility] ORDERABL ES Final Result documented in this encounter Visit Diagnoses Diagnosis Pain in left foot Pain in limb Pain in left foot Pain in limb documented in this encounter Care Teams Clinic Physician Director Relationship Specialty Start Date End Date Dara Tavera FNP [address] [place] [phone] PCP - General NURSE PRACTITIONER 10/13/18 documented as of this encounter
--- OUTSIDE RECORDS SUMMARY | 2025-05-19 18:40 | XMS_ITS | Encounter Summary ---
Author Organization [facility] Address [address] [place] [address] Care Team Providers Care Supervising Editor Trailer Name Role Phone Dara Tavera AMANDEEP Primary Care Provider Encounter Details Date Type Department Care Team (Late st Contact Info) Description 04/30/2007 Outpatient [facility] [address] [place] [address] AMBULANCE, [facility] Social History Tobacco Use Types Packs/Day Years Used Date Smoking Tobacco: Never Assessed Comments Unknown Sex and Gender Information Value Date Recorded Sex Assigned at Not on file Legal Sex Female 5:22 AM WELLNESS NURSE Gender Identity Not on file Sexual Orientation Not on file documented as of this encounter Plan of Treatment Not on file documented as of this encounter Procedures Procedure Name Priority Date/Time Associated Diagnosis Comments CT ABDOMEN PELVIS W CONTRAST Routine 04/30/2007 8:07 PM WELLNESS NURSE documented in this encounter Results * CT ABDOMEN PELVIS W CONTRAST (04/30/2007 8:07 PM WELLNESS NURSE) Anatomical Region Laterality Modality Abdomen Other 04/30/2007 8:07 PM WELLNESS NURSE Narrative 04/30/2007 8:[address] Scan Abdomen and Pelvis with contrast [...] Resolved 11/04/2013 11/04/2013 8 10:33 AM WELLNESS NURSE R/O COVID-19 12/25/2019 12/25/2019 12/26/2019 2:46 PM CDT R/O COVID-19 05/09/2020 05/09/2020 05/09/2020 12:1 7 PM WELLNESS NURSE documented as of this encounter Care Teams Supervising Editor Trailer Relationship Specialty Start Date End Date Dara Tavera FNP [address] [place] [address] PCP - General NURSE PRACTITIONER 10/13/18 documented as of this encounter
--- OUTSIDE RECORDS SUMMARY | 2025-05-19 18:40 | XMS_ITS | Encounter Summary ---
Author Organization [facility] Address [address] [place] [address] Care Team Providers Care Grout Machine Operator Name Role Phone Dara Tavera [facility] Primary Care Provider Encounter Details Date Type Department Care Team (Latest Contact Info) Description 05/10/2008 Outpatient Historical [facility] Ambulance [address] [place] [address] AMBULANCE, [facility] Other Malaise and Fatigue; Other Speech Disturbance; Unspecified Abnormal Pupillary Function; Esophageal Reflux; Encounter for Long-Term (Current) Use of Other Medications Social History Tobacco Use Types Packs/Day Years Used Date Smoking Tobacco: Never Assessed Comments Unknown Sex and Gender Information Value Date Recorded Sex Assigned at Not on file Legal Sex Female 5:22 AM TACK PULLER Gender Identity Not on file Sexual [...] 10/30/13 Resolved 11/04/2013 11/04/2013 8 10:33 AM TACK PULLER R/O COVID-19 12/25/2019 12/25/2019 12/26/2019 2:46 PM CDT R/O COVID-19 05/09/2020 05/09/2020 05/09/2020 12:1 7 PM TACK PULLER documented as of this encounter Care Teams Grout Machine Operator Relationship Specialty Start Date End Date Dara Tavera FNP [address] [place] [phone] PCP - General NURSE PRACTITIONER 10/13/18 documented as of this encounter
--- OUTSIDE RECORDS SUMMARY | 2025-05-19 18:40 | XMS_ITS | Encounter Summary ---
Author Organization [facility] Address [address] [place] [address] Care Team Providers Care Child Protective Services Specialist Name Role Phone Dara Tavera Primary Care Provider Encounter Details Date Type Department Care Team (Latest Contact Info) Description 11/17/2005 Outpatient [facility] [address] [place] [address] AMBULANCE, [facility] Non-Healing Surgical Wound (Primary Dx) Social History Tobacco Use Types Packs/Day Years Used Date Smoking Tobacco: Never Assessed Comments Unknown Sex and Gender Information Value Date Recorded Sex Assigned at Not on file Legal Sex Female 5:22 AM HARDWOOD FALLER Gender Identity Not on file Sexual Orientation Not on file documented as of this encounter Plan of Treatment Not on file documented as of this encounter Visit Diagnoses Diagnosis Non-healing surgical wound- Primary documented in this encounter Additional Health Concerns Infection Onset Date Last Indicated Resolved Time VRE Comment:Urine 10/30/13 Resolved 11/04/2013 11/04/2013 8 10:33 AM HARDWOOD FALLER R/O COVID-19 12/25/2019 12/25/2019 12/26/2019 2:46 PM CDT R/O COVID-19 05/09/2020 05/09/2020 05/09/2020 12:1 7 PM HARDWOOD FALLER documented as of this encounter Care Teams Child Protective Services Specialist Relationship Specialty Start Date End Date Dara Tavera FNP [address] [place] [phone] PCP - General NURSE PRACTITIONER 10/13/18 documented as of this encounter
--- OUTSIDE RECORDS SUMMARY | 2025-05-19 18:40 | XMS_ITS | Encounter Summary ---
Author Organization [facility] Address [address] [place] [address] Care Team Providers Care Supervisor Machine Workers Name Role Phone Dara Tavera COMPUTER SYSTEMS SECURITY ADMINISTRATOR Primary Care Provider Encounter Details Date Type Department Care Team (Late st Contact Info) Description 06/17/2007 Outpatient Historical [facility] Sammi Justice MD [address] [place] [address] Murphy Espitia MD NO ADDRESS [...] file Legal Sex Female 5:22 AM DIRECTOR PATIENT FINANCIAL SERVICES Gender Identity Not on file Sexual Orientation Not on file documented as of this encounter Plan of Treatment Not on file documented as of this encounter Procedures Procedure Name Priority Date/Time Associated Diagnosis Comments CBC WITH DIFFERENTIAL Routine 06/20/2007 4:40 AM DIRECTOR PATIENT FINANCIAL SERVICES BASIC METABOLIC PANEL Routine 06/20/2007 4:40 AM DIRECTOR PATIENT FINANCIAL SERVICES URINALYSIS W/REFLEX MICROSCOPIC Routine 06/19/2007 5:59 AM DIRECTOR PATIENT FINANCIAL SERVICES CARDIAC ENZYMES Routine 06/18/2007 7:40 AM DIRECTOR PATIENT FINANCIAL SERVICES CARDIAC ENZYMES Routine 06/18/2007 1:45 AM DIRECTOR PATIENT FINANCIAL SERVICES CBC WITH DIFFERENTIAL Routine 06/18/2007 1:45 AM DIRECTOR PATIENT FINANCIAL SERVICES TSH Routine 06/18/2007 1:45 AM DIRECTOR PATIENT FINANCIAL SERVICES COMPREHENSIVE METABOLIC PANEL Routine 06/18/2007 1:45 AM DIRECTOR PATIENT FINANCIAL SERVICES PT AND APTT Routine 06/17/2007 7:50 PM DIRECTOR PATIENT FINANCIAL SERVICES CARDIAC ENZYMES Routine 06/17/2007 7:50 PM DIRECTOR PATIENT FINANCIAL SERVICES CBC WITH DIFFERENTIAL Routine 06/17/2007 7:50 PM DIRECTOR PATIENT FINANCIAL SERVICES BRAIN NATRIURETIC PEPTIDE, BNP OR PROBNP Routine 06/17/2007 7:50 PM DIRECTOR PATIENT FINANCIAL SERVICES BASIC METABOLIC PANEL Routine 06/17/2007 7:50 PM DIRECTOR PATIENT FINANCIAL SERVICES POC BLOOD GAS, LYTES AND H+H Routine 06/17/2007 6:48 PM DIRECTOR PATIENT FINANCIAL SERVICES documented in this encounter Results * BASIC METABOLIC PANEL (06/20/2007 4:40 AM DIRECTOR PATIENT FINANCIAL SERVICES) GLUCOSE 99 70 - 110 mg/dL INTERFACE [...] 295 mOsm/Kg INTERFACE SYSTEM 06/20/2007 4:40 AM DIRECTOR PATIENT FINANCIAL SERVICES us Murphy Espitia MD CHEMISTRY ORDERABLES Edited INTERFACE SYSTEM Refer to clinic/hospital department * (ABNORMAL) CBC WITH DIFFERENTIAL (06/20/2007 4:40 AM DIRECTOR PATIENT FINANCIAL SERVICES) WBC 10.6 4.5 - 11.0 K/ul INTERFACE [...] 0.2 K/ul INTERFACE SYSTEM 06/20/2007 4:40 AM DIRECTOR PATIENT FINANCIAL SERVICES us Murphy Espitia MD HEMATOLOGY ORDERABLES Edited INTERFACE SYSTEM Refer to clinic/hospital department * URINALYSIS (06/19/2007 5:59 AM DIRECTOR PATIENT FINANCIAL SERVICES) COLOR UA Yellow Straw INTERFACE SYSTEM CLARITY [...] No No INTERFACE SYSTEM 06/19/2007 5:59 AM DIRECTOR PATIENT FINANCIAL SERVICES Murphy Espitia MD URINE ORDERABLES Edited Performing Organization Address [facility] Phone Number INTERFACE SYSTEM Refer to clinic/hospital department * CARDIAC ENZYMES (06/18/2007 7:40 AM DIRECTOR PATIENT FINANCIAL SERVICES) TROPONIN I <0.1 0.0 - 1.3 ng/mL INTERFACE SYSTEM CKMB 1.9 0.0 - 5.0 ng/mL INTERFACE SYSTEM 06/18/2007 7:40 AM DIRECTOR PATIENT FINANCIAL SERVICES Sammi Justice MD CHEMISTRY ORDERABLES Edited Performing Organization Address [facility] Phone Number INTERFACE SYSTEM Refer to clinic/hospital department * TSH (06/18/2007 1:45 AM DIRECTOR PATIENT FINANCIAL SERVICES) TSH 0.530 0.350 - 5.500 uIU/ml INTERFACE SYSTEM 06/18/2007 1:45 AM DIRECTOR PATIENT FINANCIAL SERVICES Murphy Espitia MD CHEMISTRY ORDERABLES Edited Performing Organization Address [facility] Phone Number INTERFACE SYSTEM Refer to clinic/hospital department * (ABNORMAL) COMPREHENSIVE METABOLIC PANEL (06/18/2007 1:45 AM DIRECTOR PATIENT FINANCIAL SERVICES) GLUCOSE 227(H) 70 - 110 mg/dL INTERFACE [...] 295 mOsm/Kg INTERFACE SYSTEM 06/18/2007 1:45 AM DIRECTOR PATIENT FINANCIAL SERVICES us Murphy Espitia MD CHEMISTRY ORDERABLES Edited INTERFACE SYSTEM Refer to clinic/hospital department * (ABNORMAL) CBC WITH DIFFERENTIAL (06/18/2007 1:45 AM DIRECTOR PATIENT FINANCIAL SERVICES) WBC 22.9(H) 4.5 - 11.0 K/ul INTERFACE [...] 0.2 K/ul INTERFACE SYSTEM 06/18/2007 1:45 AM DIRECTOR PATIENT FINANCIAL SERVICES Murphy Espitia MD HEMATOLOGY ORDERABLES Edited Performing Organization Address [facility] Phone Number INTERFACE SYSTEM Refer to clinic/hospital department * CARDIAC ENZYMES (06/18/2007 1:45 AM DIRECTOR PATIENT FINANCIAL SERVICES) TROPONIN I <0.1 0.0 - 1.3 ng/mL INTERFACE SYSTEM CKMB 1.7 0.0 - 5.0 ng/mL INTERFACE SYSTEM 06/18/2007 1:45 AM DIRECTOR PATIENT FINANCIAL SERVICES Sammi Justice MD CHEMISTRY ORDERABLES Edited Performing Organization Address [facility] Phone Number INTERFACE SYSTEM Refer to clinic/hospital department * (ABNORMAL) BRAIN NATRIURETIC PEPTIDE, BNP OR PROBNP (06/17/2007 7:50 PM DIRECTOR PATIENT FINANCIAL SERVICES) BRAIN NATRIURETIC PEPTIDE 211(H) 0 - 125 pg/mL INTERFACE SYSTEM 06/17/2007 7:50 PM DIRECTOR PATIENT FINANCIAL SERVICES Sammi Justice MD CHEMISTRY ORDERABLES Edited Performing Organization Address [facility] Phone Number INTERFACE SYSTEM Refer to clinic/hospital department * PT AND APTT (06/17/2007 7:50 PM DIRECTOR PATIENT FINANCIAL SERVICES) PROTIME 14.4 12.8 - 15.8 Secs INTERFACE SYSTEM INR 1.0 INTERFACE SYSTEM PTT 34.9 21.6 - 35.6 Secs INTERFACE SYSTEM 06/17/2007 7:50 PM DIRECTOR PATIENT FINANCIAL SERVICES us Sammi Justice MD HEMATOLOGY ORDERABLES Edite d Performing Organization Address [facility] Phone Number INTERFACE SYSTEM Refer to clinic/hospital department * CARDIAC ENZYMES (06/17/2007 7:50 PM DIRECTOR PATIENT FINANCIAL SERVICES) TROPONIN I <0.1 0.0 - 1.3 ng/mL INTERFACE SYSTEM CKMB 2.7 0.0 - 5.0 ng/mL INTERFACE SYSTEM 06/17/2007 7:50 PM DIRECTOR PATIENT FINANCIAL SERVICES Sammi Justice MD CHEMISTRY ORDERABLES Edited Performing Organization Address [facility] Phone Number INTERFACE SYSTEM Refer to clinic/hospital department * (ABNORMAL) BASIC METABOLIC PANEL (06/17/2007 7:50 PM DIRECTOR PATIENT FINANCIAL SERVICES) GLUCOSE 143(H) 70 - 110 mg/dL INTERFACE [...] 295 mOsm/Kg INTERFACE SYSTEM 06/17/2007 7:50 PM DIRECTOR PATIENT FINANCIAL SERVICES Sammi Justice MD CHEMISTRY ORDERABLES Edited Performing Organization Address [facility] Phone Number INTERFACE SYSTEM Refer to clinic/hospital department * (ABNORMAL) CBC WITH DIFFERENTIAL (06/17/2007 7:50 PM DIRECTOR PATIENT FINANCIAL SERVICES) WBC 20.9(H) 4.5 - 11.0 K/ul INTERFACE [...] 0.2 K/ul INTERFACE SYSTEM 06/17/2007 7:50 PM DIRECTOR PATIENT FINANCIAL SERVICES us Sammi Justice MD HEMATOLOGY ORDERABLES Edite d INTERFACE SYSTEM Refer to clinic/hospital department * (ABNORMAL) POC ISTAT EG 7+ (06/17/2007 6:48 PM DIRECTOR PATIENT FINANCIAL SERVICES) SPECIMEN TYPE Arterial INTERF SHANTE SYSTEM Comment: Test Performed By [id number] Pulse OX: 96 Hemoglobin calculated from Hematocrit [...] 1.32 mmol/l INTERFACE SYSTEM 06/17/2007 6:48 PM DIRECTOR PATIENT FINANCIAL SERVICES Murphy Espitia MD POINT OF CARE TESTING COM Edite d INTERFACE SYSTEM Refer to clinic/hospital department documented in this encounter Visit Diagnoses Diagnosis Unspecified asthma, with exacerbation Bipolar I disorder, most recent episode (or current) depressed, unspecified ([facility]) Bipolar I disorder, most recent episode (or current) depressed, unspecified Tobacco use disorder Obesity, unspecified Hypopotassemia Hypoxemia documented in this encounter Additional Health Concerns Infection Onset Date Last Indicated Resolved Time VRE Comment:Urine 10/30/13 Resolved 11/04/2013 11/04/2013 8 10:33 AM DIRECTOR PATIENT FINANCIAL SERVICES R/O COVID-19 12/25/2019 12/25/2019 12/26/2019 2:46 PM CDT R/O COVID-19 05/09/2020 05/09/2020 05/09/2020 12:1 7 PM DIRECTOR PATIENT FINANCIAL SERVICES documented as of this encounter Care Teams Supervisor Machine Workers Relationship Specialty Start Date End Date Dara Tavera FNP [address] [place] [phone] PCP - General NURSE PRACTITIONER 10/13/18 documented as of this encounter
--- OUTSIDE RECORDS SUMMARY | 2025-05-19 18:40 | XMS_ITS | Encounter Summary ---
Author Organization [facility] Address [address] [place] [address] Care Team Providers Care Ratchet Setter Name Role Phone Dara Tavera AMANDEEP Primary Care Provider Encounter Details Date Type Department Care Team (Late st Contact Info) Description 04/27/2007 Emergency [facility] Emergency Department [address] [place] [address] Sammi Justice MD [address] [place] [address] Abdominal Pain, Other Specified Site (Primary Dx) Social History Tobacco Use Types Packs/Day Years Used Date Smoking Tobacco: Never Assessed Comments Unknown Sex and Gender Information Value Date Recorded Sex Assigned at Not on file Legal Sex Female 5:22 AM MAIL CARRIER AND CLERK Gender Identity Not on file Sexual Orientation Not on file documented as of this encounter Plan of Treatment Not on file documented as of this encounter Procedures Procedure Name Priority Date/Time Associated Diagnosis Comments URINALYSIS W/REFLEX MICROSCOPIC Routine 04/27/2007 6:20 PM MAIL CARRIER AND CLERK CBC WITH DIFFERENTIAL Routine 04/27/2007 6:09 PM MAIL CARRIER AND CLERK COMPREHENSIVE METABOLIC PANEL Routine 04/27/2007 6:09 PM MAIL CARRIER AND CLERK documented in this encounter Results * URINALYSIS (04/27/2007 6:20 PM MAIL CARRIER AND CLERK) COLOR UA Yellow Straw INTERFACE SYSTEM CLARITY [...] No No INTERFACE SYSTEM 04/27/2007 6:20 PM MAIL CARRIER AND CLERK Sammi Justice MD URINE ORDERABLES Edited Performing Organization Address City/[facility] Co de Phone Number INTERFACE SYSTEM Refer to clinic/hospital department * (ABNORMAL) COMPREHENSIVE METABOLIC PANEL (04/27/2007 6:09 PM MAIL CARRIER AND CLERK) GLUCOSE 108 70 - 110 mg/dL INTERFACE [...] 295 mOsm/Kg INTERFACE SYSTEM 04/27/2007 6:09 PM MAIL CARRIER AND CLERK Sammi Justice MD CHEMISTRY ORDERABLES Edited INTERFACE SYSTEM Refer to clinic/hospital department * (ABNORMAL) CBC WITH DIFFERENTIAL (04/27/2007 6:09 PM MAIL CARRIER AND CLERK) WBC 11.0 4.5 - 11.0 K/ul INTERFACE [...] 0.2 K/ul INTERFACE SYSTEM 04/27/2007 6:09 PM MAIL CARRIER AND CLERK us Sammi Justice MD HEMATOLOGY ORDERABLES Edite d INTERFACE SYSTEM Refer to clinic/hospital department documented in this encounter Visit Diagnoses Diagnosis Abdominal pain, other specified site- Primary documented in this encounter Additional Health Concerns Infection Onset Date Last Indicated Resolved Time VRE Comment:Urine 10/30/13 Resolved 11/04/2013 11/04/2013 8 10:33 AM MAIL CARRIER AND CLERK R/O COVID-19 12/25/2019 12/25/2019 12/26/2019 2:46 PM CDT R/O COVID-19 05/09/2020 05/09/2020 05/09/2020 12:1 7 PM MAIL CARRIER AND CLERK documented as of this encounter Care Teams Ratchet Setter Relationship Specialty Start Date End Date Dara Tavera FNP [address] [place] [address] PCP - General NURSE PRACTITIONER 10/13/18 documented as of this encounter
--- OUTSIDE RECORDS SUMMARY | 2025-05-19 18:40 | XMS_ITS | Encounter Summary ---
Author Organization [facility] Address [address] [place] [address] Care Team Providers Care Clinical Manager Home Care Name Role Phone Dara Tavera AMANDEEP Primary Care Provider Encounter Details Date Type Department Care Team (Latest Contact Info) Description 12/16/2005 Outpatient Historical [facility] Family Medicine- [address] [place] [id number] Ryan Don NP NO ADDRESS ON FILE Abdominal Pain, Unspecified Site (Primary Dx); Other Specified Disease of White Blood Cells; Cellulitis and Abscess of Unspecified Site; Nausea with Vomiting Social History Tobacco Use Types Packs/Day Years Used Date Smoking Tobacco: Never Assessed Comments Unknown Sex and Gender Information Value Date Recorded Sex Assigned at Not on file Legal Sex Female 5:22 AM AMERICAN HISTORY PROFESSOR Gender Identity Not on file Sexual [...] 10/30/13 Resolved 11/04/2013 11/04/2013 8 10:33 AM AMERICAN HISTORY PROFESSOR R/O COVID-19 12/25/2019 12/25/2019 12/26/2019 2:46 PM CDT R/O COVID-19 05/09/2020 05/09/2020 05/09/2020 12:1 7 PM AMERICAN HISTORY PROFESSOR documented as of this encounter Care Teams Clinical Manager Home Care Relationship Specialty Start Date End Date Dara Tavera FNP [address] [place] [phone] PCP - General NURSE PRACTITIONER 10/13/18 documented as of this encounter
--- OUTSIDE RECORDS SUMMARY | 2025-05-19 18:40 | XMS_ITS | Encounter Summary ---
Author Organization [facility] Address [address] [place] [address] Care Team Providers Care Masking Machine Operator Name Role Phone Dara Tavera AMANDEEP Primary Care Provider Encounter Details Date Type Department Care Team (Late st Contact Info) Description 04/29/[address] [facility] Emergency Department [address] [place] [address] Temo Nagel MD [address] [place] [address] Abdominal Pain, Other Specified Site (Primary Dx) Social History Tobacco Use Types Packs/Day Years Used Date Smoking Tobacco: Never Assessed Comments Unknown Sex and Gender Information Value Date Recorded Sex Assigned at Not on file Legal Sex Female 5:22 AM BRASS FINISHER Gender Identity Not on file Sexual Orientation Not on file documented as of this encounter Plan of Treatment Not on file documented as of this encounter Visit Diagnoses Diagnosis Abdominal pain, other specified site- Primary documented in this encounter Additional Health Concerns Infection Onset Date Last Indicated Resolved Time VRE Comment:Urine 10/30/13 Resolved 11/04/2013 11/04/2013 8 10:33 AM BRASS FINISHER R/O COVID-19 12/25/2019 12/25/2019 12/26/2019 2:46 PM CDT R/O COVID-19 05/09/2020 05/09/2020 05/09/2020 12:1 7 PM BRASS FINISHER documented as of this encounter Care Teams Masking Machine Operator Relationship Specialty Start Date End Date Dara Tavera FNP [address] [place] [phone] PCP - General NURSE PRACTITIONER 10/13/18 documented as of this encounter
--- OUTSIDE RECORDS SUMMARY | 2025-05-19 18:40 | XMS_ITS | Encounter Summary ---
Author Organization [facility] Address [address] [place] [address] Care Team Providers Care A P Supervisor Name Role Phone Dara Tavera Primary Care Provider Encounter Details Date Type Department Care Team (Late st Contact Info) Description 05/13/2007 Outpatient [facility] Ambulance [address] [place] [address] AMBULANCE, [facility] Social History Tobacco Use Types Packs/Day Years Used Date Smoking Tobacco: Never Assessed Comments Unknown Sex and Gender Information Value Date Recorded Sex Assigned at Not on file Legal Sex Female 5:22 AM SKEIN WINDER Gender Identity Not on file Sexual Orientation Not on file documented as of this encounter Plan of Treatment Not on file documented as of this encounter Visit Diagnoses Not on filedocumented in this encounter Additional Health Concerns Infection Onset Date Last Indicated Resolved Time VRE Comment:Urine 10/30/13 Resolved 11/04/2013 11/04/2013 8 10:33 AM SKEIN WINDER R/O COVID-19 12/25/2019 12/25/2019 12/26/2019 2:46 PM CDT R/O COVID-19 05/09/2020 05/09/2020 05/09/2020 12:1 7 PM SKEIN WINDER documented as of this encounter Care Teams A P Supervisor Relationship Specialty Start Date End Date Dara Tavera FNP [address] [place] [phone] PCP - General NURSE PRACTITIONER 10/13/18 documented as of this encounter
--- OUTSIDE RECORDS SUMMARY | 2025-05-19 18:40 | XMS_ITS | Encounter Summary ---
Author Organization [facility] Address [address] [place] [address] Care Team Providers Care Assembly Member Name Role Phone Dara Tavera AMANDEEP Primary Care Provider Encounter Details Date Type Department Care Team (Latest Contact Info) Description 04/22/2008 Outpatient Historical [facility] Ambulance [address] [place] [address] AMBULANCE, [facility] Aphasia; Unspecified Tachycardia; Chronic Airway Obstruction, not [...] on file Legal Sex Female 5:22 AM TYPING SECRETARY Gender Identity Not on file Sexual [...] 10/30/13 Resolved 11/04/2013 11/04/2013 8 10:33 AM TYPING SECRETARY R/O COVID-19 12/25/2019 12/25/2019 12/26/2019 2:46 PM CDT R/O COVID-19 05/09/2020 05/09/2020 05/09/2020 12:1 7 PM TYPING SECRETARY documented as of this encounter Care Teams Assembly Member Relationship Specialty Start Date End Date Dara Tavera FNP [address] [place] [phone] PCP - General NURSE PRACTITIONER 10/13/18 documented as of this encounter
--- OUTSIDE RECORDS SUMMARY | 2025-05-19 18:40 | XMS_ITS | Encounter Summary ---
Author Organization [facility] Address [address] [place] [address] Care Team Providers Care Supervisor Cloth Winding Name Role Phone Dara Tavera Primary Care Provider Encounter Details Date Type Department Care Team (Late st Contact Info) Description 03/05/2008 Outpatient Historical [facility] Ambulance [address] [place] [address] AMBULANCE, [facility] Social History Tobacco Use Types Packs/Day Years Used Date Smoking Tobacco: Never Assessed Comments Unknown Sex and Gender Information Value Date Recorded Sex Assigned at Not on file Legal Sex Female 5:22 AM DRUM BARKER OPERATOR Gender Identity Not on file Sexual Orientation Not on file documented as of this encounter Plan of Treatment Not on file documented as of this encounter Visit Diagnoses Not on filedocumented in this encounter Additional Health Concerns Infection Onset Date Last Indicated Resolved Time VRE Comment:Urine 10/30/13 Resolved 11/04/2013 11/04/2013 8 10:33 AM DRUM BARKER OPERATOR R/O COVID-19 12/25/2019 12/25/2019 12/26/2019 2:46 PM CDT R/O COVID-19 05/09/2020 05/09/2020 05/09/2020 12:1 7 PM DRUM BARKER OPERATOR documented as of this encounter Care Teams Supervisor Cloth Winding Relationship Specialty Start Date End Date Dara Tavera FNP [address] [place] [phone] PCP - General NURSE PRACTITIONER 10/13/18 documented as of this encounter
--- OUTSIDE RECORDS SUMMARY | 2025-05-19 18:40 | XMS_ITS | Encounter Summary ---
Author Organization [facility] Address [address] [place] [address] Care Team Providers Care Portable Sawyer Name Role Phone Dara Tavera AMANDEEP Primary Care Provider Encounter Details Date Type Department Care Team (Latest Contact Info) Description 04/20/2008 Outpatient Historical [facility] [address] [place] [address] AMBULANCE, [facility] Other Specified Cardiac Dysrhythmias; Unspecified Nonpsychotic [...] file Legal Sex Female 5:22 AM CHIEF LIFESTYLE OFFICER Gender Identity Not on file Sexual [...] Resolved 11/04/2013 11/04/2013 8 10:33 AM CHIEF LIFESTYLE OFFICER R/O COVID-19 12/25/2019 12/25/2019 12/26/2019 2:46 PM CDT R/O COVID-05/09/2020 05/09/2020 05/09/2020 12:1 7 PM CHIEF LIFESTYLE OFFICER documented as of this encounter Care Teams Portable Sawyer Relationship Specialty Start Date End Date Dara Tavera FNP [address] [place] [address] PCP - General NURSE PRACTITIONER 10/13/18 documented as of this encounter
--- OUTSIDE RECORDS SUMMARY | 2025-05-19 18:40 | XMS_ITS | Encounter Summary ---
Author Organization [facility] Address [address] [place] [address] Care Team Providers Care Purchaser Automotive Parts Name Role Phone Dara Tavera Primary Care Provider Encounter Details Date Type Department Care Team (Late st Contact Info) Description 04/03/2007 Outpatient [facility] [address] [place] [address] AMBULANCE, [facility] Other Chest Pain (Primary Dx) Social History Tobacco Use Types Packs/Day Years Used Date Smoking Tobacco: Never Assessed Comments Unknown Sex and Gender Information Value Date Recorded Sex Assigned at Not on file Legal Sex Female 5:22 AM HARDWOOD FLOOR INSTALLATION HELPER Gender Identity Not on file Sexual Orientation Not on file documented as of this encounter Plan of Treatment Not on file documented as of this encounter Visit Diagnoses Diagnosis Other chest pain- Primary documented in this encounter Additional Health Concerns Infection Onset Date Last Indicated Resolved Time 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
--- OUTSIDE RECORDS SUMMARY | 2025-05-19 18:40 | XMS_ITS | Encounter Summary ---
Author Organization [facility] Address [address] [place] [address] Care Team Providers Care Senior Engineering Manager Name Role Phone Dara Tavera Primary Care Provider Encounter Details Date Type Department Care Team (Late st Contact Info) Description 04/07/2008 Outpatient Historical [facility] [address] [place] [address] AMBULANCE, [facility] Social History Tobacco Use Types Packs/Day Years Used Date Smoking Tobacco: Never Assessed Comments Unknown Sex and Gender Information Value Date Recorded Sex Assigned at Not on file Legal Sex Female 5:22 AM ADJUNCT LATIN PROFESSOR Gender Identity Not on file Sexual Orientation Not on file documented as of this encounter Plan of Treatment Not on file documented as of this encounter Visit Diagnoses Not on filedocumented in this encounter Additional Health Concerns Infection Onset Date Last Indicated Resolved Time VRE Comment:Urine 10/30/13 Resolved 11/04/2013 11/04/2013 8 10:33 AM ADJUNCT LATIN PROFESSOR R/O COVID-19 12/25/2019 12/25/2019 12/26/2019 2:46 PM CDT R/O COVID-19 05/09/2020 05/09/2020 05/09/2020 12:1 7 PM ADJUNCT LATIN PROFESSOR documented as of this encounter Care Teams Senior Engineering Manager Relationship Specialty Start Date End Date Dara Tavera FNP [address] [place] [address] PCP - General NURSE PRACTITIONER 10/13/18 documented as of this encounter
--- OUTSIDE RECORDS SUMMARY | 2025-05-19 18:40 | XMS_ITS | Encounter Summary ---
Author Organization [facility] Address [address] [place] [address] Care Team Providers Care Inpatient Services Rn Name Role Phone Dara Tavera AMANDEEP Primary Care Provider Encounter Details Date Type Department Care Team (Late st Contact Info) Description 04/30/2007 Emergency [facility] [address] [place] [address] Jillian Joyce MD [address] [place] [address] Other Acute Pain (Primary Dx) Social History Tobacco Use Types Packs/Day Years Used Date Smoking Tobacco: Never Assessed Comments Unknown Sex and Gender Information Value Date Recorded Sex Assigned at Not on file Legal Sex Female 5:22 AM SALES FORCE ADMINISTRATOR Gender Identity Not on file Sexual Orientation Not on file documented as of this encounter Plan of Treatment Not on file documented as of this encounter Procedures Procedure Name Priority Date/Time Associated Diagnosis Comments URINALYSIS W/REFLEX MICROSCOPIC Routine 04/30/2007 9:34 PM SALES FORCE ADMINISTRATOR PT AND APTT Routine 04/30/2007 7:35 PM SALES FORCE ADMINISTRATOR CBC WITH DIFFERENTIAL Routine 04/30/2007 7:35 PM SALES FORCE ADMINISTRATOR LIPASE Routine 04/30/2007 7:35 PM SALES FORCE ADMINISTRATOR COMPREHENSIVE METABOLIC PANEL Routine 04/30/2007 7:35 PM SALES FORCE ADMINISTRATOR documented in this encounter Results * URINALYSIS (04/30/2007 9:34 PM SALES FORCE ADMINISTRATOR) COLOR UA Straw Straw INTERFACE SYSTEM CLARITY [...] No No INTERFACE SYSTEM 04/30/2007 9:34 PM SALES FORCE ADMINISTRATOR us Jillian Joyce MD URINE ORDERABLES Edited INTERFACE SYSTEM Refer to clinic/hospital department * PT AND APTT (04/30/2007 7:35 PM SALES FORCE ADMINISTRATOR) PROTIME 15.1 13.0 - 15.7 Secs INTERFACE SYSTEM Comment: As of 06 note change in normal range. INR 1.1 INTERFACE SYSTEM Comment: Expected Values for INR: DVT/PE Goal INR 2.5; range 2.0 - 3.0 Valve Replacement Tissue Goal INR 2.5; range 2.0 - 3.0 Mechanical Goal INR 3.0; range 2.5 - 3.5 POST-DC Goal INR 2.5; range 2.0 - 3.0 [...] in APTT Normal Range. 04/30/2007 7:35 PM SALES FORCE ADMINISTRATOR Jillian Joyce MD HEMATOLOGY ORDERABLES Edit ed Performing Organization Address City/[facility]/ZIP Co de Phone Number INTERFACE SYSTEM Refer to clinic/hospital department * (ABNORMAL) CBC WITH DIFFERENTIAL (04/30/2007 7:35 PM SALES FORCE ADMINISTRATOR) WBC 18.3(H) 4.5 - 11.0 K/ul INTERFACE [...] 0.2 K/ul INTERFACE SYSTEM 04/30/2007 7:35 PM SALES FORCE ADMINISTRATOR Jillian Joyce MD HEMATOLOGY ORDERABLES Edit ed INTERFACE SYSTEM Refer to clinic/hospital department * (ABNORMAL) COMPREHENSIVE METABOLIC PANEL (04/30/2007 7:35 PM SALES FORCE ADMINISTRATOR) GLUCOSE 103 70 - 110 mg/dL INTERFACE [...] 295 mOsm/Kg INTERFACE SYSTEM 04/30/2007 7:35 PM SALES FORCE ADMINISTRATOR us Jillian Joyce MD CHEMISTRY ORDERABLES Edite d Performing Organization Address [facility] Phone Number INTERFACE SYSTEM Refer to clinic/hospital department * LIPASE (04/30/2007 7:35 PM SALES FORCE ADMINISTRATOR) LIPASE 23 6 - 51 U/L INTERFACE SYSTEM 04/30/2007 7:35 PM SALES FORCE ADMINISTRATOR Jillian Joyce MD CHEMISTRY ORDERABLES Edite d Performing Organization Address [facility] Co me Phone Number INTERFACE SYSTEM Refer to clinic/hospital department documented in this encounter Visit Diagnoses Diagnosis Other acute pain- Primary documented in this encounter Additional Health Concerns Infection Onset Date Last Indicated Resolved Time VRE Comment:Urine 10/30/13 Resolved 11/04/2013 11/04/2013 8 10:33 AM SALES FORCE ADMINISTRATOR R/O COVID-19 12/25/2019 12/25/2019 12/26/2019 2:46 PM CDT R/O COVID-19 05/09/2020 05/09/2020 05/09/2020 12:1 7 PM SALES FORCE ADMINISTRATOR documented as of this encounter Care Teams Inpatient Services Rn Relationship Specialty Start Date End Date Dara Tavera FNP [address] [place] [phone] PCP - General NURSE PRACTITIONER 10/13/18 documented as of this encounter
--- OUTSIDE RECORDS SUMMARY | 2025-05-19 18:40 | XMS_ITS | Encounter Summary ---
Author Organization [facility] Address [address] [place] [address] Care Team Providers Care Mail Handler Equipment Operator Name Role Phone Dara Tavera AMANDEEP Primary Care Provider Encounter Details Date Type Department Care Team (Late st Contact Info) Description 04/13/2007 Emergency [facility] Emergency Department [address] [place] [address] Flex Ricks MD NO ADDRESS ON FILE Other and Unspecified Noninfectious Gastroenteritis and Colitis (Primary Dx) Social History Tobacco Use Types Packs/Day Years Used Date Smoking Tobacco: Never Assessed Comments Unknown Sex and Gender Information Value Date Recorded Sex Assigned at Not on file Legal Sex Female 5:22 AM SENIOR SAS PROGRAMMER Gender Identity Not on file Sexual [...] Resolved 11/04/2013 11/04/2013 8 10:33 AM SENIOR SAS PROGRAMMER R/O COVID-19 12/25/2019 12/25/2019 12/26/2019 2:46 PM CDT R/O COVID-19 05/09/2020 05/09/2020 05/09/2020 12:1 7 PM SENIOR SAS PROGRAMMER documented as of this encounter Care Teams Mail Handler Equipment Operator Relationship Specialty Start Date End Date Dara Tavera FNP [address] [place] [phone] PCP - General NURSE PRACTITIONER 10/13/18 documented as of this encounter
--- OUTSIDE RECORDS SUMMARY | 2025-05-19 18:40 | XMS_ITS | Encounter Summary ---
Author Organization [facility] Address [address] [place] [address] Care Team Providers Care Mica Laminating Machine Feeder Name Role Phone Dara Tavera AMANDEEP Primary Care Provider Encounter Details Date Type Department Care Team (Latest Contact Info) Description 03/28/2008 Outpatient Historical [facility] [address] [place] [address] AMBULANCE, [facility] Unspecified Asthma; Unspecified Nonpsychotic Mental [...] file Legal Sex Female 5:22 AM ELECTRICAL MANAGER Gender Identity Not on file Sexual [...] Resolved 11/04/2013 11/04/2013 8 10:33 AM ELECTRICAL MANAGER R/O COVID-19 12/25/2019 12/25/2019 12/26/2019 2:46 PM CDT R/O COVID-05/09/2020 05/09/2020 05/09/2020 12:1 7 PM ELECTRICAL MANAGER documented as of this encounter Care Teams Mica Laminating Machine Feeder Relationship Specialty Start Date End Date Dara Tavera FNP [address] [place] [phone] PCP - General NURSE PRACTITIONER 10/13/18 documented as of this encounter
--- OUTSIDE RECORDS SUMMARY | 2025-05-19 18:40 | XMS_ITS | Clinical Summary ---
Author Organization [facility] Address [address] [place] [address] Care Team Providers Care Ophthalmic Asst Name Role Phone Dara Tavera REINSURANCE CLERK Primary Care Provider [phone] Allergies Active Allergy Reactions Criticality Noted Date Comments Adhesive Rash Low 02/12/2009 Codeine Nausea and Vomiting Low 02/12/2009 Duloxetine Other (See Comments) 02/24/2015 Fentanyl Hives High 11/07/2019 Fluoxetine Unknown 10/20/2018 Gabapentin Unknown,Hallucination Low 02/12/2009 Influenza Virus Vaccine Qv 7922-6948 (36 Mos+) Other (See Comments) 06/19/2014 pneumonia Ketorolac Tromethamine Other (See Comments) Low Adverse drug reaction [place] Unknown 02/12/2009 Other reaction(s): shakey Penicillins Rash [...] 9 Active fluticasone propionate (FLONASE) 50 mcg/spray [place], Suspension nasal inhaler Administer 2 Sprays in [...] 07/07/2009 0 10/26/2012 Personal history of MRSA (ca thicillin resistant Staphylococcus aureus) 06/27/2009 018 Overview [...] asked 05/05/2019 How often do you attend druze or mandaen serv ices? Not asked 05/05/2019 Do you belong to any clubs o r organizations such as druze groups, unions, fraternal or athletic groups, or [...] on file Legal Sex Female 5:22 AM SLATE TRIMMER Gender Identity Not on file Sexual [...] Advance Directives For more information, please contact: [phone] Documents on File Type Date Recorded Patient Health Analytics Consultant Expl anation Advance Directive Living Will [...] 6:26 AM 06/22/2018 8:41 PM Care Teams Ophthalmic Asst Relationship Specialty Start Date End Date Dara Tavera FNP [address] [place] [phone] PCP - General NURSE PRACTITIONER 10/13/18
--- OUTSIDE RECORDS SUMMARY | 2025-05-19 18:40 | XMS_ITS | Encounter Summary ---
Author Organization [facility] Address [address] [place] [address] Care Team Providers Care Form Setter Steel Forms Name Role Phone Dara Tavera AMANDEEP Primary Care Provider Encounter Details Date Type Department Care Team (Latest Contact Info) Description 04/01/2008 Outpatient Historical [facility] [address] [place] [address] AMBULANCE, [facility] Unspecified Asthma; Unspecified Nonpsychotic Mental Disorder; Other Convulsions (CMS/HCC); Tobacco Use Disorder; Personal History of Allergy to Analgesic Agent; Personal History of Allergy to Other Specified Medicinal Agents Social History Tobacco Use Types Packs/Day Years Used Date Smoking Tobacco: Never Assessed Comments Unknown Sex and Gender Information Value Date Recorded Sex Assigned at Not on file Legal Sex Female 5:22 AM LICENSED OPTICAL DISPENSER Gender Identity Not on file Sexual Orientation [...] 10/30/13 Resolved 11/04/2013 11/04/2013 8 10:33 AM LICENSED OPTICAL DISPENSER R/O COVID-19 12/25/2019 12/25/2019 12/26/2019 2:46 PM CDT R/O COVID-19 05/09/2020 05/09/2020 05/09/2020 12:1 7 PM LICENSED OPTICAL DISPENSER documented as of this encounter Care Teams Form Setter Steel Forms Relationship Specialty Start Date End Date Dara Tavera FNP [address] [place] [phone] PCP - General NURSE PRACTITIONER 10/13/18 documented as of this encounter
--- OUTSIDE RECORDS SUMMARY | 2025-05-19 18:40 | XMS_ITS | Encounter Summary ---
Author Organization [facility] Address [address] [place] [address] Care Team Providers Care Care Transitions Nurse Name Role Phone Dara Tavera Primary Care Provider Encounter Details Date Type Department Care Team (Latest Contact Info) Description 10/09/2005 Outpatient Historical [facility] [address] [place] [address] AMBULANCE, [facility] Unspecified Nonpsychotic Mental Disorder (Primary Dx) Social History Tobacco Use Types Packs/Day Years Used Date Smoking Tobacco: Never Assessed Comments Unknown Sex and Gender Information Value Date Recorded Sex Assigned at Not on file Legal Sex Female 5:22 AM EVENT DECORATOR Gender Identity Not on file Sexual Orientation Not on file documented as of this encounter Plan of Treatment Not on file documented as of this encounter Visit Diagnoses Diagnosis Unspecified nonpsychotic mental disorder- Primary documented in this encounter Additional Health Concerns Infection Onset Date Last Indicated Resolved Time VRE Comment:Urine 10/30/13 Resolved 11/04/2013 11/04/2013 8 10:33 AM EVENT DECORATOR R/O COVID-19 12/25/2019 12/25/2019 12/26/2019 2:46 PM CDT R/O COVID-19 05/09/2020 05/09/2020 05/09/2020 12:1 7 PM EVENT DECORATOR documented as of this encounter Care Teams Care Transitions Nurse Relationship Specialty Start Date End Date Dara Tavera FNP [address] [place] [address] PCP - General NURSE PRACTITIONER 10/13/18 documented as of this encounter
--- OUTSIDE RECORDS SUMMARY | 2025-05-19 18:41 | XMS_ITS | Encounter Summary ---
Author Organization [facility] Address [address] [place] [address] Care Team Providers Care Credit Or Loans Officer Name Role Phone Dara Tavera Primary Care Provider [phone] Encounter Details Date Type Department Care Team (Latest Contact Info) Description 03/16/2006 Outpatient Historical [facility] [address] [place] [address] AMBULANCE, [facility] Abdominal Pain, Unspecified Site (Primary Dx) Social History Tobacco Use Types Packs/Day Years Used Date Smoking Tobacco: Never Assessed Comments Unknown Sex and Gender Information Value Date Recorded Sex Assigned at Not on file Legal Sex Female 5:22 AM AUTOMOTIVE WINDOW TINTER Gender Identity Not on file Sexual Orientation Not on file documented as of this encounter Plan of Treatment Not on file documented as of this encounter Visit Diagnoses Diagnosis Abdominal pain, unspecified site- Primary documented in this encounter Additional Health Concerns Infection Onset Date Last Indicated Resolved Time VRE Comment:Urine 10/30/13 Resolved 11/04/2013 11/04/2013 8 10:33 AM AUTOMOTIVE WINDOW TINTER R/O COVID-19 12/25/2019 12/25/2019 12/26/2019 2:46 PM CDT R/O COVID-19 05/09/2020 05/09/2020 05/09/2020 12:1 7 PM AUTOMOTIVE WINDOW TINTER documented as of this encounter Care Teams Credit Or Loans Officer Relationship Specialty Start Date End Date Dara Tavera FNP [address] [place] [phone] PCP - General NURSE PRACTITIONER 10/13/18 documented as of this encounter
--- OUTSIDE RECORDS SUMMARY | 2025-05-19 18:41 | XMS_ITS | Encounter Summary ---
Author Organization [facility] Address [address] [place] [address] Care Team Providers Care Unit Director Name Role Phone Dara Tavera AMANDEEP Primary Care Provider Encounter Details Date Type Department Care Team (Latest Contact Info) Description 01/14/2007 Outpatient Historical [facility] [address] [place] [address] AMBULANCE, [facility] Hemorrhage of Rectum and Anus (Primary Dx) Social History Tobacco Use Types Packs/Day Years Used Date Smoking Tobacco: Never Assessed Comments Unknown Sex and Gender Information Value Date Recorded Sex Assigned at Not on file Legal Sex Female 5:22 AM INTERIOR DESIGN INSTRUCTOR Gender Identity Not on file Sexual [...] 10/30/13 Resolved 11/04/2013 11/04/2013 8 10:33 AM INTERIOR DESIGN INSTRUCTOR R/O COVID-19 12/25/2019 12/25/2019 12/26/2019 2:46 PM CDT R/O COVID-19 05/09/2020 05/09/2020 05/09/2020 12:1 7 PM INTERIOR DESIGN INSTRUCTOR documented as of this encounter Care Teams Unit Director Relationship Specialty Start Date End Date Dara Tavera FNP [address] [place] [phone] PCP - General NURSE PRACTITIONER 10/13/18 documented as of this encounter
--- OUTSIDE RECORDS SUMMARY | 2025-05-19 18:41 | XMS_ITS | Encounter Summary ---
Author Organization [facility] Address [address] [place] [address] Care Team Providers Care Dirt Bike Racer Name Role Phone Dara Tavera AMANDEEP Primary Care Provider Encounter Details Date Type Department Care Team (Late st Contact Info) Description 01/15/2007 Emergency [facility] Emergency Department [address] [place] [address] Raji Reyes MD NO ADDRESS ON FILE Unspecified, Hemorrhage of Gastrointestinal Tract (Primary Dx) Social History Tobacco Use Types Packs/Day Years Used Date Smoking Tobacco: Never Assessed Comments Unknown Sex and Gender Information Value Date Recorded Sex Assigned at Not on file Legal Sex Female 5:22 AM INSPECTOR EXPERIMENTAL ASSEMBLY Gender Identity Not on file Sexual Orientation [...] during normal , as reported by the electrical laboratory technician, are summarized as follows: Gestational Age Expected hCG Values (mIU/ml) 0.2-1 Weeks 5 - 50 1-2 Weeks 50 - 500 2-3 Weeks 100 - 5,000 3-4 Weeks 1,000 - 50,000 5-6 Weeks 10,000 - 100,000 6-8 Weeks 15,000 - 200,000 2-3 Months 10,000 - 100,000 01/15/2007 9:00 AM CDT Raji Reyes MD CHEMISTRY ORDERABLES Edited Performing Organization Address [facility] Phone Number INTERFACE SYSTEM Refer to clinic/hospital department * LIPASE (01/15/2007 9:00 AM CDT) [facility] LIPASE 27 6 - 51 U/L INTERFACE SYSTEM Comment: As of 05 the [facility] has changed testing methods. The new reference range is 6-51 The old referance range was 23-300 01/15/2007 9:00 AM CDT Raji Reyes MD CHEMISTRY ORDERABLES Edited Performing Organization Address [facility] de Phone Number INTERFACE SYSTEM Refer to clinic/hospital department * (ABNORMAL) COMPREHENSIVE METABOLIC PANEL (01/15/2007 9:00 AM CDT) [facility] GLOBULIN (CALC) 2.8 2.4 - 3.9 g/dL [...] Resolved 11/04/2013 11/04/2013 8 10:33 AM INSPECTOR EXPERIMENTAL ASSEMBLY R/O COVID-19 12/25/2019 12/25/2019 12/26/2019 2:46 PM CDT R/O COVID-19 05/09/2020 05/09/2020 05/09/2020 12:1 7 PM INSPECTOR EXPERIMENTAL ASSEMBLY documented as of this encounter Care Teams Dirt Bike Racer Relationship Specialty Start Date End Date Dara Tavera FNP [address] [place] [phone] PCP - General NURSE PRACTITIONER 10/13/18 documented as of this encounter
--- OUTSIDE RECORDS SUMMARY | 2025-05-19 18:41 | XMS_ITS | Encounter Summary ---
Author Organization [facility] Address [address] [place] [address] Care Team Providers Care Project Management Director Name Role Phone Dara Tavera Primary Care Provider Encounter Details Date Type Department Care Team (Latest Contact Info) Description 04/07/2006 Outpatient Historical [facility] [address] [place] [address] AMBULANCE, [facility] Other Convulsions (CMS/HCC) (Primary Dx) Social History Tobacco Use Types Packs/Day Years Used Date Smoking Tobacco: Never Assessed Comments Unknown Sex and Gender Information Value Date Recorded Sex Assigned at Not on file Legal Sex Female 5:22 AM RECRUITMENT MANAGER Gender Identity Not on file Sexual Orientation Not on file documented as of this encounter Plan of Treatment Not on file documented as of this encounter Visit Diagnoses Diagnosis Other convulsions- Primary documented in this encounter Additional Health Concerns Infection Onset Date Last Indicated Resolved Time VRE Comment:Urine 10/30/13 Resolved 11/04/2013 11/04/2013 8 10:33 AM RECRUITMENT MANAGER R/O COVID-19 12/25/2019 12/25/2019 12/26/2019 2:46 PM CDT R/O COVID-19 05/09/2020 05/09/2020 05/09/2020 12:1 7 PM RECRUITMENT MANAGER documented as of this encounter Care Teams Project Management Director Relationship Specialty Start Date End Date Dara Tavera FNP [address] [place] [phone] PCP - General NURSE PRACTITIONER 10/13/18 documented as of this encounter
--- OUTSIDE RECORDS SUMMARY | 2025-05-19 18:41 | XMS_ITS | Encounter Summary ---
Author Organization [facility] Address [address] [place] [address] Care Team Providers Care Resort Desk Clerk Name Role Phone Dara Tavera Primary Care Provider [phone] Encounter Details Date Type Department Care Team (Latest Contact Info) Description 12/28/2005 Outpatient Historical [facility] [place] [address] [facility] [address] [place] [address] Faiza Petersen MD NO ADDRESS ON FILE Open Wnd Anterior Abdomen (Primary Dx); Other Postsurgical Status Social History Tobacco Use Types Packs/Day Years Used Date Smoking Tobacco: Never Assessed Comments Unknown Sex and Gender Information Value Date Recorded Sex Assigned at Not on file Legal Sex Female 5:22 AM AVIONICS SYSTEMS INTEGRATION SPECIALIST Gender Identity Not on file Sexual [...] 10/30/13 Resolved 11/04/2013 11/04/2013 8 10:33 AM AVIONICS SYSTEMS INTEGRATION SPECIALIST R/O COVID-19 12/25/2019 12/25/2019 12/26/2019 2:46 PM CDT R/O COVID-19 05/09/2020 05/09/2020 05/09/2020 12:1 7 PM AVIONICS SYSTEMS INTEGRATION SPECIALIST documented as of this encounter Care Teams Resort Desk Clerk Relationship Specialty Start Date End Date Dara Tavera FNP [address] [place] [phone] PCP - General NURSE PRACTITIONER 10/13/18 documented as of this encounter
--- OUTSIDE RECORDS SUMMARY | 2025-05-19 18:41 | XMS_ITS | Encounter Summary ---
Author Organization [facility] Address [address] [place] [address] Care Team Providers Care Peoplesoft Consultant Name Role Phone Dara Tavera Primary Care Provider [phone] Encounter Details Date Type Department Care Team (Latest Contact Info) Description 03/05/2006 Outpatient Historical [facility] Ambulance [address] [place] [address] AMBULANCE, [facility] Other Malaise and Fatigue (Primary Dx) Social History Tobacco Use Types Packs/Day Years Used Date Smoking Tobacco: Never Assessed Comments Unknown Sex and Gender Information Value Date Recorded Sex Assigned at Not on file Legal Sex Female 5:22 AM DAY CARE HOME PROVIDER Gender Identity Not on file Sexual Orientation Not on file documented as of this encounter Plan of Treatment Not on file documented as of this encounter Visit Diagnoses Diagnosis Other malaise and fatigue- Primary documented in this encounter Additional Health Concerns Infection Onset Date Last Indicated Resolved Time VRE Comment:Urine 10/30/13 Resolved 11/04/2013 11/04/2013 8 10:33 AM DAY CARE HOME PROVIDER R/O COVID-19 12/25/2019 12/25/2019 12/26/2019 2:46 PM CDT R/O COVID-19 05/09/2020 05/09/2020 05/09/2020 12:1 7 PM DAY CARE HOME PROVIDER documented as of this encounter Care Teams Peoplesoft Consultant Relationship Specialty Start Date End Date Dara Tavera FNP [address] [place] [phone] PCP - General NURSE PRACTITIONER 10/13/18 documented as of this encounter
--- OUTSIDE RECORDS SUMMARY | 2025-05-19 18:41 | XMS_ITS | Encounter Summary ---
Author Organization [facility] Address [address] [place] [address] Care Team Providers Care Head Counselor Name Role Phone Dara Tavera Primary Care Provider Encounter Details Date Type Department Care Team (Late st Contact Info) Description 11/05/2006 Outpatient Historical [facility] Ambulance [address] [place] [address] AMBULANCE, [facility] Social History Tobacco Use Types Packs/Day Years Used Date Smoking Tobacco: Never Assessed Comments Unknown Sex and Gender Information Value Date Recorded Sex Assigned at Not on file Legal Sex Female 5:22 AM BOOKING OFFICER Gender Identity Not on file Sexual Orientation Not on file documented as of this encounter Plan of Treatment Not on file documented as of this encounter Visit Diagnoses Not on filedocumented in this encounter Additional Health Concerns Infection Onset Date Last Indicated Resolved Time VRE Comment:Urine 10/30/13 Resolved 11/04/2013 11/04/2013 8 10:33 AM BOOKING OFFICER R/O COVID-19 12/25/2019 12/25/2019 12/26/2019 2:46 PM CDT R/O COVID-19 05/09/2020 05/09/2020 05/09/2020 12:1 7 PM BOOKING OFFICER documented as of this encounter Care Teams Head Counselor Relationship Specialty Start Date End Date Dara Tavera FNP [address] [place] [phone] PCP - General NURSE PRACTITIONER 10/13/18 documented as of this encounter
--- OUTSIDE RECORDS SUMMARY | 2025-05-19 18:41 | XMS_ITS | Encounter Summary ---
Author Organization [facility] Address [address] [place] [address] Care Team Providers Care Tool And Die Repair Name Role Phone Dara Tavera Primary Care Provider [phone] Encounter Details Date Type Department Care Team (Latest Contact Info) Description 08/21/2005 Outpatient Historical [facility] Amb[facility] [address] [place] [address] AMBULANCE, [facility] DISRUPT OF EXTERNAL OPERATION WOUND (Primary Dx) Social History Tobacco Use Types Packs/Day Years Used Date Smoking Tobacco: Never Assessed Comments Unknown Sex and Gender Information Value Date Recorded Sex Assigned at Not on file Legal Sex Female 5:22 AM RIG OPERATOR Gender Identity Not on file Sexual Orientation Not on file documented as of this encounter Plan of Treatment Not on file documented as of this encounter Visit Diagnoses Diagnosis Disruption of external operation (surgical) wound- Primary documented in this encounter Additional Health Concerns Infection Onset Date Last Indicated Resolved Time VRE Comment:Urine 10/30/13 Resolved 11/04/2013 11/04/2013 8 10:33 AM RIG OPERATOR R/O COVID-19 12/25/2019 12/25/2019 12/26/2019 2:46 PM CDT R/O COVID-19 05/09/2020 05/09/2020 05/09/2020 12:1 7 PM RIG OPERATOR documented as of this encounter Care Teams Tool And Die Repair Relationship Specialty Start Date End Date Dara Tavera FNP [address] [place] [address] PCP - General NURSE PRACTITIONER 10/13/18 documented as of this encounter
--- OUTSIDE RECORDS SUMMARY | 2025-05-19 18:41 | XMS_ITS | Encounter Summary ---
Author Organization [facility] Address [address] [place] [address] Care Team Providers Care Waiter/Waitress Name Role Phone Dara Tavera Primary Care Provider Encounter Details Date Type Department Care Team (Latest Contact Info) Description 03/06/2006 Outpatient Historical [facility] Ambulance [address] [place] [address] AMBULANCE, [facility] Other Convulsions (CMS/HCC) (Primary Dx) Social History Tobacco Use Types Packs/Day Years Used Date Smoking Tobacco: Never Assessed Comments Unknown Sex and Gender Information Value Date Recorded Sex Assigned at Not on file Legal Sex Female 5:22 AM AUTO SERVICE MECHANIC Gender Identity Not on file Sexual Orientation Not on file documented as of this encounter Plan of Treatment Not on file documented as of this encounter Visit Diagnoses Diagnosis Other convulsions- Primary documented in this encounter Additional Health Concerns Infection Onset Date Last Indicated Resolved Time VRE Comment:Urine 10/30/13 Resolved 11/04/2013 11/04/2013 8 10:33 AM AUTO SERVICE MECHANIC R/O COVID-19 12/25/2019 12/25/2019 12/26/2019 2:46 PM CDT R/O COVID-19 05/09/2020 05/09/2020 05/09/2020 12:1 7 PM AUTO SERVICE MECHANIC documented as of this encounter Care Teams Waiter/Waitress Relationship Specialty Start Date End Date Dara Tavera FNP [address] [place] [phone] PCP - General NURSE PRACTITIONER 10/13/18 documented as of this encounter
--- OUTSIDE RECORDS SUMMARY | 2025-05-19 18:41 | XMS_ITS | Encounter Summary ---
Author Organization [facility] Address [address] [place] [address] Care Team Providers Care Material Worker Name Role Phone Dara Tavera Primary Care Provider Encounter Details Date Type Department Care Team (Latest Contact Info) Description 11/20/2006 Outpatient Historical [facility] [address] [place] [address] AMBULANCE, [facility] Pain in Joint, Shoulder Region (Primary Dx) Social History Tobacco Use Types Packs/Day Years Used Date Smoking Tobacco: Never Assessed Comments Unknown Sex and Gender Information Value Date Recorded Sex Assigned at Not on file Legal Sex Female 5:22 AM DIGESTER HAND Gender Identity Not on file Sexual Orientation Not on file documented as of this encounter Plan of Treatment Not on file documented as of this encounter Visit Diagnoses Diagnosis Pain in joint, shoulder region- Primary documented in this encounter Additional Health Concerns Infection Onset Date Last Indicated Resolved Time VRE Comment:Urine 10/30/13 Resolved 11/04/2013 11/04/2013 8 10:33 AM DIGESTER HAND R/O COVID-19 12/25/2019 12/25/2019 12/26/2019 2:46 PM CDT R/O COVID-19 05/09/2020 05/09/2020 05/09/2020 12:1 7 PM DIGESTER HAND documented as of this encounter Care Teams Material Worker Relationship Specialty Start Date End Date Dara Tavera FNP [address] [place] [phone] PCP - General NURSE PRACTITIONER 10/13/18 documented as of this encounter
--- OUTSIDE RECORDS SUMMARY | 2025-05-19 18:41 | XMS_ITS | Encounter Summary ---
Author Organization [facility] Address [address] [place] [address] Care Team Providers Care Mold Stripper Name Role Phone Dara Tavera AMANDEEP Primary Care Provider Encounter Details Date Type Department Care Team (Late st Contact Info) Description 01/14/2007 Emergency [facility] Emergency Department [address] [place] [address] Benedicto Rojo MD NO ADDRESS ON FILE Abdominal Pain, Other Specified Site (Primary Dx) Social History Tobacco Use Types Packs/Day Years Used Date Smoking Tobacco: Never Assessed Comments Unknown Sex and Gender Information Value Date Recorded Sex Assigned at Not on file Legal Sex Female 5:22 AM CHOIR TEACHER Gender Identity Not on file Sexual [...] ORDERABLES Edited Performing Organization Address [facility] [[email or web address]] de Phone Number [...] MD HEMATOLOGY ORDERABLES Edited Performing Organization Address [facility] Co de Phone Number INTERFACE SYSTEM Refer to clinic/hospital department documented in this encounter Visit Diagnoses Diagnosis Abdominal pain, other specified site- Primary documented in this encounter Additional Health Concerns Infection Onset Date Last Indicated Resolved Time VRE Comment:Urine 10/30/13 Resolved 11/04/2013 11/04/2013 8 10:33 AM CHOIR TEACHER R/O COVID-19 12/25/2019 12/25/2019 12/26/2019 2:46 PM CDT R/O COVID-05/09/2020 05/09/2020 05/09/2020 12:1 7 PM CHOIR TEACHER documented as of this encounter Care Teams Mold Stripper Relationship Specialty Start Date End Date Dara Tavera FNP [address] [place] [phone] PCP - General NURSE PRACTITIONER 10/13/18 documented as of this encounter
--- OUTSIDE RECORDS SUMMARY | 2025-05-19 18:41 | XMS_ITS | Encounter Summary ---
Author Organization [facility] Address [address] [place] [address] Care Team Providers Care Wastewater Plant Civil Engineer Name Role Phone Dara Tavera DRAINLAYER Primary Care Provider Encounter Details Date Type [...] on file Legal Sex Female 5:22 AM PONY CYLINDER PRESS OPERATOR Gender Identity Not on file [...] By: Lionel Hays M.D. Date Signed: 11/29/06 [facility] Procedure Note 05/09/2009 Multiplanar imaging of [...] By: Lionel Hays M.D. Date Signed: 11/29/06 [facility] Luis Ross MD MR ORDERABLES Final [...] 10/30/13 Resolved 11/04/2013 11/04/2013 8 10:33 AM PONY CYLINDER PRESS OPERATOR R/O COVID-19 12/25/2019 12/25/2019 12/26/2019 2:46 PM CDT R/O COVID-19 05/09/2020 05/09/2020 05/09/2020 12:1 7 PM PONY CYLINDER PRESS OPERATOR documented as of this encounter Care Teams Wastewater Plant Civil Engineer Relationship Specialty Start Date End Date Dara Tavera FNP [address] [place] [phone] PCP - General NURSE PRACTITIONER 4/27/19 documented as of this encounter
--- OUTSIDE RECORDS SUMMARY | 2025-05-19 18:41 | XMS_ITS | Encounter Summary ---
Author Organization [facility] Address [address] [place] [address] Care Team Providers Care Screen Printing Machine Loader Unloader Name Role Phone Dara Tavera Primary Care Provider Encounter Details Date Type Department Care Team (Latest Contact Info) Description 12/12/2006 Outpatient Historical [facility] Ambulance [address] [place] [address] AMBULANCE, [facility] Open Wound of Wrist, without Mention of Complication (Primary Dx) Social History Tobacco Use Types Packs/Day Years Used Date Smoking Tobacco: Never Assessed Comments Unknown Sex and Gender Information Value Date Recorded Sex Assigned at Not on file Legal Sex Female 5:22 AM NURSING TEACHER Gender Identity Not on file Sexual Orientation Not on file documented as of this encounter Plan of Treatment Not on file documented as of this encounter Visit Diagnoses Diagnosis Open wound of wrist, without mention of complication- Primary documented in this encounter Additional Health Concerns Infection Onset Date Last Indicated Resolved Time VRE Comment:Urine 10/30/13 Resolved 11/04/2013 11/04/2013 8 10:33 AM NURSING TEACHER R/O COVID-19 12/25/2019 12/25/2019 12/26/2019 2:46 PM CDT R/O COVID-19 05/09/2020 05/09/2020 05/09/2020 12:1 7 PM NURSING TEACHER documented as of this encounter Care Teams Screen Printing Machine Loader Unloader Relationship Specialty Start Date End Date Dara Tavera FNP [address] [place] [phone] PCP - General NURSE PRACTITIONER 10/13/18 documented as of this encounter
--- OUTSIDE RECORDS SUMMARY | 2025-05-19 18:41 | XMS_ITS | Encounter Summary ---
Author Organization [facility] Address [address] [place] [address] Care Team Providers Care Lens Assorter Name Role Phone Dara Tavera Primary Care Provider Encounter Details Date Type Department Care Team (Latest Contact Info) Description 08/31/[address] [facility] [address] [place] [address] AMBULANCE, [facility] Other Injury of Abdomen (Primary Dx) Social History Tobacco Use Types Packs/Day Years Used Date Smoking Tobacco: Never Assessed Comments Unknown Sex and Gender Information Value Date Recorded Sex Assigned at Not on file Legal Sex Female 5:22 AM HOT BOX CHECKER Gender Identity Not on file Sexual Orientation Not on file documented as of this encounter Plan of Treatment Not on file documented as of this encounter Visit Diagnoses Diagnosis Other injury of abdomen- Primary documented in this encounter Additional Health Concerns Infection Onset Date Last Indicated Resolved Time VRE Comment:Urine 10/30/13 Resolved 11/04/2013 11/04/2013 8 10:33 AM HOT BOX CHECKER R/O COVID-19 12/25/2019 12/25/2019 12/26/2019 2:46 PM CDT R/O COVID-19 05/09/2020 05/09/2020 05/09/2020 12:1 7 PM HOT BOX CHECKER documented as of this encounter Care Teams Lens Assorter Relationship Specialty Start Date End Date Dara Tavera FNP [address] [place] [phone] PCP - General NURSE PRACTITIONER 10/13/18 documented as of this encounter
--- OUTSIDE RECORDS SUMMARY | 2025-05-19 18:41 | XMS_ITS | Encounter Summary ---
Author Organization [facility] Address [address] [place] [address] Care Team Providers Care Junction Maker Name Role Phone Dara Tavera Primary Care Provider Encounter Details Date Type Department Care Team (Latest Contact Info) Description 04/13/2006 Outpatient Historical [facility] Ambulance [address] [place] [address] AMBULANCE, [facility] Nausea with Vomiting (Primary Dx) Social History Tobacco Use Types Packs/Day Years Used Date Smoking Tobacco: Never Assessed Comments Unknown Sex and Gender Information Value Date Recorded Sex Assigned at Not on file Legal Sex Female 5:22 AM LATIN DANCER Gender Identity Not on file Sexual Orientation Not on file documented as of this encounter Plan of Treatment Not on file documented as of this encounter Visit Diagnoses Diagnosis Nausea with vomiting- Primary documented in this encounter Additional Health Concerns Infection Onset Date Last Indicated Resolved Time VRE Comment:Urine 10/30/13 Resolved 11/04/2013 11/04/2013 8 10:33 AM LATIN DANCER R/O COVID-19 12/25/2019 12/25/2019 12/26/2019 2:46 PM CDT R/O COVID-19 05/09/2020 05/09/2020 05/09/2020 12:1 7 PM LATIN DANCER documented as of this encounter Care Teams Junction Maker Relationship Specialty Start Date End Date Dara Tavera FNP [address] [place] [address] PCP - General NURSE PRACTITIONER 10/13/18 documented as of this encounter
--- OUTSIDE RECORDS SUMMARY | 2025-05-19 18:41 | XMS_ITS | Encounter Summary ---
Author Organization [facility] Address [address] [place] [address] Care Team Providers Care Bridal Consultant Name Role Phone Dara Tavera Primary Care Provider Encounter Details Date Type Department Care Team (Latest Contact Info) Description 03/15/2006 Outpatient Historical [facility] [place] [address] [facility] [address] [place] [address] Faiza Petersen MD NO ADDRESS ON FILE Open Wnd Anterior Abdomen (Primary Dx); Obesity, Unspecified Social History Tobacco Use Types Packs/Day Years Used Date Smoking Tobacco: Never Assessed Comments Unknown Sex and Gender Information Value Date Recorded Sex Assigned at Not on file Legal Sex Female 5:22 AM HEALTH OCCUPATIONS INSTRUCTOR Gender Identity Not on file Sexual [...] Resolved 11/04/2013 11/04/2013 8 10:33 AM HEALTH OCCUPATIONS INSTRUCTOR R/O COVID-19 12/25/2019 12/25/2019 12/26/2019 2:46 PM CDT R/O COVID-19 05/09/2020 05/09/2020 05/09/2020 12:1 7 PM HEALTH OCCUPATIONS INSTRUCTOR documented as of this encounter Care Teams Bridal Consultant Relationship Specialty Start Date End Date Dara Tavera FNP [address] [place] [address] PCP - General NURSE PRACTITIONER 10/13/18 documented as of this encounter
--- OUTSIDE RECORDS SUMMARY | 2025-05-19 18:41 | XMS_ITS | Encounter Summary ---
Author Organization [facility] Address [address] [place] [address] Care Team Providers Care Litigation Coordinator Name Role Phone Dara Tavera Primary Care Provider Encounter Details Date Type Department Care Team (Latest Contact Info) Description 02/07/2006 Outpatient Historical [facility] [place] [address] [facility] [address] [place] [address] Ryan Don NP NO ADDRESS ON FILE Polydipsia (Primary Dx); Nausea Alone; Open Wnd Anterior Abdomen Social History Tobacco Use Types Packs/Day Years Used Date Smoking Tobacco: Never Assessed Comments Unknown Sex and Gender Information Value Date Recorded Sex Assigned at Not on file Legal Sex Female 5:22 AM CREATIVE PROJECT MANAGER Gender Identity Not on file Sexual [...] 10/30/13 Resolved 11/04/2013 11/04/2013 8 10:33 AM CREATIVE PROJECT MANAGER R/O COVID-19 12/25/2019 12/25/2019 12/26/2019 2:46 PM CDT R/O COVID-19 05/09/2020 05/09/2020 05/09/2020 12:1 7 PM CREATIVE PROJECT MANAGER documented as of this encounter Care Teams Litigation Coordinator Relationship Specialty Start Date End Date Dara Tavera FNP [address] [place] [address] PCP - General NURSE PRACTITIONER 10/13/18 documented as of this encounter
--- OUTSIDE RECORDS SUMMARY | 2025-05-19 18:41 | XMS_ITS | Encounter Summary ---
Author Organization [facility] Address [address] [place] [address] Care Team Providers Care Laminating Machine Tender Name Role Phone Dara Tavera Primary Care Provider Encounter Details Date Type Department Care Team (Latest Contact Info) Description 04/15/2006 Outpatient Historical [facility] Ambulance [address] [place] [address] AMBULANCE, [facility] Unspecified Nonpsychotic Mental Disorder (Primary Dx) Social History Tobacco Use Types Packs/Day Years Used Date Smoking Tobacco: Never Assessed Comments Unknown Sex and Gender Information Value Date Recorded Sex Assigned at Not on file Legal Sex Female 5:22 AM OPHTHALMIC TECHNICIAN Gender Identity Not on file Sexual Orientation Not on file documented as of this encounter Plan of Treatment Not on file documented as of this encounter Visit Diagnoses Diagnosis Unspecified nonpsychotic mental disorder- Primary documented in this encounter Additional Health Concerns Infection Onset Date Last Indicated Resolved Time VRE Comment:Urine 10/30/13 Resolved 11/04/2013 11/04/2013 8 10:33 AM OPHTHALMIC TECHNICIAN R/O COVID-19 12/25/2019 12/25/2019 12/26/2019 2:46 PM CDT R/O COVID-19 05/09/2020 05/09/2020 05/09/2020 12:1 7 PM OPHTHALMIC TECHNICIAN documented as of this encounter Care Teams Laminating Machine Tender Relationship Specialty Start Date End Date Dara Tavera FNP [address] [place] [phone] PCP - General NURSE PRACTITIONER 10/13/18 documented as of this encounter
--- OUTSIDE RECORDS SUMMARY | 2025-05-19 18:41 | XMS_ITS | Encounter Summary ---
Author Organization [facility] Address [address] [place] [address] Care Team Providers Care Social Insurance Specialist Name Role Phone Dara Tavera Primary Care Provider Encounter Details Date Type Department Care Team (Latest Contact Info) Description 01/05/2006 Outpatient Historical [facility] Family Medicine [place] [address] [facility] [address] [place] [address] Faiza Petersen MD NO ADDRESS ON FILE Open Wnd Anterior Abdomen (Primary Dx); Abdominal Pain, Unspecified Site Social History Tobacco Use Types Packs/Day Years Used Date Smoking Tobacco: Never Assessed Comments Unknown Sex and Gender Information Value Date Recorded Sex Assigned at Not on file Legal Sex Female 5:22 AM RECRUITING SCHEDULER Gender Identity Not on file Sexual [...] 10/30/13 Resolved 11/04/2013 11/04/2013 8 10:33 AM RECRUITING SCHEDULER R/O COVID-19 12/25/2019 12/25/2019 12/26/2019 2:46 PM CDT R/O COVID-19 05/09/2020 05/09/2020 05/09/2020 12:1 7 PM RECRUITING SCHEDULER documented as of this encounter Care Teams Social Insurance Specialist Relationship Specialty Start Date End Date Dara Tavera FNP [address] [place] [address] PCP - General NURSE PRACTITIONER 10/13/18 documented as of this encounter
--- OUTSIDE RECORDS SUMMARY | 2025-05-19 18:41 | XMS_ITS | Encounter Summary ---
Author Organization [facility] Address [address] [place] [address] Care Team Providers Care Gear Cutter Name Role Phone Dara Tavera Primary Care Provider Encounter Details Date Type Department Care Team (Latest Contact Info) Description 02/22/2006 Outpatient Historical [facility] [address] [place] [address] AMBULANCE, [facility] Cervicalgia (Primary Dx) Social History Tobacco Use Types Packs/Day Years Used Date Smoking Tobacco: Never Assessed Comments Unknown Sex and Gender Information Value Date Recorded Sex Assigned at Not on file Legal Sex Female 5:22 AM CHIEF SECURITY OFFICER Gender Identity Not on file Sexual Orientation Not on file documented as of this encounter Plan of Treatment Not on file documented as of this encounter Visit Diagnoses Diagnosis Cervicalgia- Primary documented in this encounter Additional Health Concerns Infection Onset Date Last Indicated Resolved Time VRE Comment:Urine 10/30/13 Resolved 11/04/2013 11/04/2013 8 10:33 AM CHIEF SECURITY OFFICER R/O COVID-19 12/25/2019 12/25/2019 12/26/2019 2:46 PM CDT R/O COVID-19 05/09/2020 05/09/2020 05/09/2020 12:1 7 PM CHIEF SECURITY OFFICER documented as of this encounter Care Teams Gear Cutter Relationship Specialty Start Date End Date Dara Tavera FNP [address] [place] [address] PCP - General NURSE PRACTITIONER 10/13/18 documented as of this encounter
--- OUTSIDE RECORDS SUMMARY | 2025-05-19 18:41 | XMS_ITS | Encounter Summary ---
Author Organization [facility] Address [address] [place] [address] Care Team Providers Care Consulting Nurse Name Role Phone Dara Tavera Primary Care Provider Encounter Details Date Type Department Care Team (Latest Contact Info) Description 04/08/2006 Outpatient Historical [facility] [address] [place] [address] AMBULANCE, [facility] Unspecified Epilepsy without Mention of Intractable Epilepsy (CMS/HCC) (Primary Dx) Social History Tobacco Use Types Packs/Day Years Used Date Smoking Tobacco: Never Assessed Comments Unknown Sex and Gender Information Value Date Recorded Sex Assigned at Not on file Legal Sex Female 5:22 AM WATER SUPERVISOR Gender Identity Not on file Sexual [...] Resolved 11/04/2013 11/04/2013 8 10:33 AM WATER SUPERVISOR R/O COVID-19 12/25/2019 12/25/2019 12/26/2019 2:46 PM CDT R/O COVID-19 05/09/2020 05/09/2020 05/09/2020 12:1 7 PM WATER SUPERVISOR documented as of this encounter Care Teams Consulting Nurse Relationship Specialty Start Date End Date Dara Tavera FNP [address] [place] [address] PCP - General NURSE PRACTITIONER 10/13/18 documented as of this encounter
--- OUTSIDE RECORDS SUMMARY | 2025-05-19 18:41 | XMS_ITS | Encounter Summary ---
Author Organization [facility] Address [address] [place] [address] Care Team Providers Care Pressure Steamer Tender Name Role Phone Dara Tavera Primary Care Provider [phone] Encounter Details Date Type Department Care Team (Latest Contact Info) Description 12/24/2005 Outpatient Historical [facility] [address] [place] [address] AMBULANCE, [facility] [place] Open Wnd Anterior Abdomen (Primary Dx) Social History Tobacco Use Types Packs/Day Years Used Date Smoking Tobacco: Never Assessed Comments Unknown Sex and Gender Information Value Date Recorded Sex Assigned at Not on file Legal Sex Female 5:22 AM GAS LINE SERVICER Gender Identity Not on file Sexual [...] Resolved 11/04/2013 11/04/2013 8 10:33 AM GAS LINE SERVICER R/O COVID-19 12/25/2019 12/25/2019 12/26/2019 2:46 PM CDT R/O COVID-19 05/09/2020 05/09/2020 05/09/2020 12:1 7 PM GAS LINE SERVICER documented as of this encounter Care Teams Pressure Steamer Tender Relationship Specialty Start Date End Date Dara Tavera FNP [address] [place] [phone] PCP - General NURSE PRACTITIONER 10/13/18 documented as of this encounter
--- OUTSIDE RECORDS SUMMARY | 2025-05-19 18:41 | XMS_ITS | Encounter Summary ---
Author Organization [facility] Address [address] [place] [address] Care Team Providers Care Production Drilling Machine Operator Name Role Phone Dara Tavera Primary Care Provider Encounter Details Date Type Department Care Team (Latest Contact Info) Description 12/18/2006 Outpatient Historical [facility] [address] [place] [address] AMBULANCE, [facility] Other Chest Pain (Primary Dx) Social History Tobacco Use Types Packs/Day Years Used Date Smoking Tobacco: Never Assessed Comments Unknown Sex and Gender Information Value Date Recorded Sex Assigned at Not on file Legal Sex Female 5:22 AM SALES SOLUTIONS REPRESENTATIVE Gender Identity Not on file Sexual Orientation Not on file documented as of this encounter Plan of Treatment Not on file documented as of this encounter Visit Diagnoses Diagnosis Other chest pain- Primary documented in this encounter Additional Health Concerns Infection Onset Date Last Indicated Resolved Time VRE Comment:Urine 10/30/13 Resolved 11/04/2013 11/04/2013 8 10:33 AM SALES SOLUTIONS REPRESENTATIVE R/O COVID-19 12/25/2019 12/25/2019 12/26/2019 2:46 PM CDT R/O COVID-19 05/09/2020 05/09/2020 05/09/2020 12:1 7 PM SALES SOLUTIONS REPRESENTATIVE documented as of this encounter Care Teams Production Drilling Machine Operator Relationship Specialty Start Date End Date Dara Tavera FNP [address] [place] [phone] PCP - General NURSE PRACTITIONER 10/13/18 documented as of this encounter
--- OUTSIDE RECORDS SUMMARY | 2025-05-19 18:41 | XMS_ITS | Encounter Summary ---
Author Organization [facility] Address [address] [place] [address] Care Team Providers Care Sewing Machines Salesperson Name Role Phone Dara Tavera Primary Care Provider Encounter Details Date Type Department Care Team (Latest Contact Info) Description 11/12/2006 Outpatient Historical [facility] [address] [place] [address] AMBULANCE, [facility] Pain in Joint, Shoulder Region (Primary Dx) Social History Tobacco Use Types Packs/Day Years Used Date Smoking Tobacco: Never Assessed Comments Unknown Sex and Gender Information Value Date Recorded Sex Assigned at Not on file Legal Sex Female 5:22 AM DOCUMENTATION NURSE Gender Identity Not on file Sexual Orientation Not on file documented as of this encounter Plan of Treatment Not on file documented as of this encounter Visit Diagnoses Diagnosis Pain in joint, shoulder region- Primary documented in this encounter Additional Health Concerns Infection Onset Date Last Indicated Resolved Time 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
--- OUTSIDE RECORDS SUMMARY | 2025-05-19 18:41 | XMS_ITS | Encounter Summary ---
Author Organization [facility] Address [address] [place] [address] Care Team Providers Care Electrical Prospecting Observer Name Role Phone Dara Tavera Primary Care Provider [phone] Encounter Details Date Type Department Care Team (Latest Contact Info) Description 02/04/2007 Outpatient Historical [facility] [address] [place] [address] AMBULANCE, [facility] Cervicalgia (Primary Dx) Social History Tobacco Use Types Packs/Day Years Used Date Smoking Tobacco: Never Assessed Comments Unknown Sex and Gender Information Value Date Recorded Sex Assigned at Not on file Legal Sex Female 5:22 AM ENGINEERING ASSISTANT Gender Identity Not on file Sexual Orientation Not on file documented as of this encounter Plan of Treatment Not on file documented as of this encounter Visit Diagnoses Diagnosis Cervicalgia- Primary documented in this encounter Additional Health Concerns Infection Onset Date Last Indicated Resolved Time 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
--- OUTSIDE RECORDS SUMMARY | 2025-05-19 18:41 | XMS_ITS | Encounter Summary ---
Author Organization [facility] Address [address] [place] [address] Care Team Providers Care Cloth Shrinking Machine Operator Name Role Phone Dara Tavera Primary Care Provider Encounter Details Date Type Department Care Team (Latest Contact Info) Description 01/31/2006 Outpatient Historical [facility] [address] [place] [address] AMBULANCE, [facility] Unspecified Nonpsychotic Mental Disorder (Primary Dx) Social History Tobacco Use Types Packs/Day Years Used Date Smoking Tobacco: Never Assessed Comments Unknown Sex and Gender Information Value Date Recorded Sex Assigned at Not on file Legal Sex Female 5:22 AM ROLL TENSION TESTER Gender Identity Not on file Sexual Orientation Not on file documented as of this encounter Plan of Treatment Not on file documented as of this encounter Visit Diagnoses Diagnosis Unspecified nonpsychotic mental disorder- Primary documented in this encounter Additional Health Concerns Infection Onset Date Last Indicated Resolved Time 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
--- OUTSIDE RECORDS SUMMARY | 2025-05-19 18:41 | XMS_ITS | Encounter Summary ---
Author Organization [facility] Address [address] [place] [address] Care Team Providers Care Senior Microsoft Net Developer Name Role Phone Dara Tavera Primary Care Provider [phone] Encounter Details Date Type Department Care Team (Latest Contact Info) Description 03/15/2006 Outpatient Historical [facility] [address] [place] [address] AMBULANCE, [facility] Other Injury of Abdomen (Primary Dx) Social History Tobacco Use Types Packs/Day Years Used Date Smoking Tobacco: Never Assessed Comments Unknown Sex and Gender Information Value Date Recorded Sex Assigned at Not on file Legal Sex Female 5:22 AM SUPERVISOR CHAR HOUSE Gender Identity Not on file Sexual Orientation Not on file documented as of this encounter Plan of Treatment Not on file documented as of this encounter Visit Diagnoses Diagnosis Other injury of abdomen- Primary documented in this encounter Additional Health Concerns Infection Onset Date Last Indicated Resolved Time 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
--- OUTSIDE RECORDS SUMMARY | 2025-05-19 18:41 | XMS_ITS | Encounter Summary ---
Author Organization [facility] Address [address] [place] [address] Care Team Providers Care Well Tender Name Role Phone Dara Tavera Primary Care Provider [phone] Encounter Details Date Type Department Care Team (Latest Contact Info) Description 01/05/2006 Outpatient Historical [facility] [address] [place] [address] AMBULANCE, [facility] Abdominal Pain, Unspecified Site (Primary Dx) Social History Tobacco Use Types Packs/Day Years Used Date Smoking Tobacco: Never Assessed Comments Unknown Sex and Gender Information Value Date Recorded Sex Assigned at Not on file Legal Sex Female 5:22 AM FLAVOR MAKER Gender Identity Not on file Sexual Orientation Not on file documented as of this encounter Plan of Treatment Not on file documented as of this encounter Visit Diagnoses Diagnosis Abdominal pain, unspecified site- Primary documented in this encounter Additional Health Concerns Infection Onset Date Last Indicated Resolved Time 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
--- OUTSIDE RECORDS SUMMARY | 2025-05-19 18:41 | XMS_ITS | Encounter Summary ---
Author Organization [facility] Address [address] [place] [address] Care Team Providers Care Marble Carver Name Role Phone Dara Tavera Primary Care Provider Encounter Details Date Type Department Care Team (Latest Contact Info) Description 07/18/2005 Outpatient Historical [facility] [address] [place] [address] Faiza Petersen MD NO ADDRESS ON FILE PREOP EXAM OTHER UNSPECIFIED (Primary Dx); ESOPHAGEAL REFLUX; CHEST PAIN NEC Social History Tobacco Use Types Packs/Day Years Used Date Smoking Tobacco: Never Assessed Comments Unknown Sex and Gender Information Value Date Recorded Sex Assigned at Not on file Legal Sex Female 5:22 AM MANAGER SUPPLY CHAIN Gender Identity Not on file Sexual Orientation Not on file documented as of this encounter Plan of Treatment Not on file documented as of this encounter Visit Diagnoses Diagnosis Preoperative examination, unspecified- Primary Esophageal reflux Other chest pain documented in this encounter Additional Health Concerns Infection Onset Date Last Indicated Resolved Time 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
--- OUTSIDE RECORDS SUMMARY | 2025-05-19 18:41 | XMS_ITS | Encounter Summary ---
Author Organization [facility] Address [address] [place] [address] Care Team Providers Care Compressor Repairer Name Role Phone Dara Tavera RADIO REPAIRER Primary Care Provider Reason for Visit * Reason Comments Medication Refill Encounter Details Date Type Department Care Team (Late st Contact Info) Description 07/25/2019 Refill [facility] [address] [place] [address] Danial Farias, HETAL [address] [place] [address] Social History Tobacco Use Types [...] asked 05/05/2019 How often do you attend synagogue or zoroastrianism serv ices? Not asked 05/05/2019 Do you belong to any clubs o r organizations such as synagogue groups, unions, fraternal or athletic groups, or [...] on file Legal Sex Female 5:22 AM HEAD MEN'S GOLF COACH Gender Identity Not on file [...] COVID-19 05/09/2020 05/09/2020 05/09/2020 12:1 7 PM HEAD MEN'S GOLF COACH documented as of this encounter Care Teams Compressor Repairer Relationship Specialty Start Date End Date Dara Tavera FNP [address] [place] [phone] PCP - General NURSE PRACTITIONER 10/13/18 documented as of this encounter
--- OUTSIDE RECORDS SUMMARY | 2025-05-19 18:41 | XMS_ITS | Encounter Summary ---
Author Organization [facility] Address [address] [place] [address] Care Team Providers Care Dialysis Patient Care Technician Name Role Phone Dara Tavera Primary Care Provider Encounter Details Date Type Department Care Team (Latest Contact Info) Description 04/12/2006 Outpatient Historical [facility] [address] [place] [address] AMBULANCE, [facility] Nausea with Vomiting (Primary Dx) Social History Tobacco Use Types Packs/Day Years Used Date Smoking Tobacco: Never Assessed Comments Unknown Sex and Gender Information Value Date Recorded Sex Assigned at Not on file Legal Sex Female 5:22 AM SENIOR WINDOWS SYSTEMS ADMINISTRATOR Gender Identity Not on file Sexual Orientation Not on file documented as of this encounter Plan of Treatment Not on file documented as of this encounter Visit Diagnoses Diagnosis Nausea with vomiting- Primary documented in this encounter Additional Health Concerns Infection Onset Date Last Indicated Resolved Time 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
--- NOTE | 2025-05-19 18:46 | W.ED.CHESTPA ---
HPI - Chest Pain General: Chief Complaint: Chest Pain Stated Complaint: chest pain - headache Time Seen by Provider: 05/19/25 18:18 History of Present Illness: 59-year-old female presents emergency room with complaint of having episodes where she gets that headache and begins radiating down her neck and into her chest the last for an hour or 2 and then resolved. She has had this in the past. She has had multiple previous workups including a head CT just a few months ago that was normal. She not having any headache now not having any chest pain at this time. She did get nauseous with it no recent falls or head injuries no sinus pain or pressure or drainage no fever sweats chills no shortness of breath. Associated symptoms: Deny abdominal pain, dyspnea or fever(s) Related Data Home Medications ?Medication ?Instructions ?Recorded ?Confirmed acetaminophen 500 mg tablet 1,000 mg PO Q6H PRN Pain 07/09/21 05/13/25 pantoprazole 40 mg tablet,delayed 40 mg PO BID 07/27/23 05/13/25 release ondansetron HCl 4 mg tablet 4 mg PO Q8H 01/22/24 05/13/25 prednisolone acetate 1 % eye drp ophthalmic (eye) 05/10/24 05/13/25 drops,suspension dicyclomine 10 mg capsule 10 mg PO BID PRN 05/27/24 05/13/25 sucralfate 1 gram tablet (Carafate) 1 g PO QID 05/27/24 05/13/25 famotidine 20 mg tablet mg PO 09/23/24 05/13/25 lubiprostone 24 mcg capsule mcg PO 09/23/24 05/13/25 Previous Rx's ?Medication ?Instructions ?Recorded nystatin 100,000 unit/gram topical 1 applic topical BID #30 grams 06/16/22 powder SOLE Supports #1 ea 01/01/24 fluticasone propionate 50 1 spray intranasal DAILY PRN nasal 05/10/24 mcg/actuation nasal congestion 30 days #16 grams spray,suspension (Flonase Allergy Relief) Rollator Walker #1 ea 09/06/24 promethazine 25 mg tablet 12.5 - 25 mg (0.5 - 1 x 25 mg) PO 10/05/24 Q6H PRN nausea and vomiting #10 tabs albuterol sulfate 90 mcg/actuation See Rx Instructions .Route 11/22/24 aerosol inhaler .COMPLEX #9 grams cholecalciferol (vitamin D3) 1,250 1,250 mcg PO .once a week 90 days 12/16/24 mcg (50,000 unit) capsule #12 caps albuterol sulfate 2.5 mg/3 mL 2.5 mg (3 mL) inhalation Q8H PRN 03/26/25 (0.083 %) solution for nebulization bronchospasm 10 days #90 mL nebulizer #1 ea 03/26/25 cyclobenzaprine 10 mg tablet 10 mg PO TID PRN muscle spasm #90 04/01/25 tabs lamotrigine 200 mg tablet 200 mg PO DAILY@06 #30 tabs 04/10/25 quetiapine 25 mg tablet See Rx Instructions PO .COMPLEX 04/10/25 anxiety and agitation #150 tabs trazodone 300 mg tablet 300 mg PO .q hs PRN sleep #30 tabs 04/10/25 vortioxetine 20 mg tablet 20 mg PO .q am #30 tabs 04/10/25 vortioxetine 5 mg tablet 5 mg PO DAILY #30 tabs 04/10/25 hydrocodone 5 mg-acetaminophen 325 1 tab PO Q6H PRN pain #20 tabs 04/29/25 mg tablet methocarbamol 750 mg tablet 750 mg PO Q6H PRN spasms #20 tabs 05/01/25 tizanidine 4 mg tablet 4 mg PO BID PRN muscle spasticity 05/12/25 #60 tabs prednisone 20 mg tablet 20 mg PO DAILY #15 tabs 05/13/25 Allergies Allergy/AdvReac Type Severity Reaction Status Date / Time haloperidol (From Haldol) Allergy Severe unknown Verified 05/05/25 09:32 Penicillins Allergy Severe ALGY-Anaphy Verified 05/05/25 09:32 laxis sulfamethoxazole (From Allergy Severe ALGY-Hives Verified 05/05/25 09:32 Bactrim) Tetracyclines Allergy Severe ALGY-Hives Verified 05/05/25 09:32 gabapentin (From Neurontin) Allergy Intermediate ADR-Halluci Verified 05/05/25 09:32 nating ketorolac (From Toradol) Allergy Intermediate ALGY-Rash Verified 05/05/25 09:32 lithium Allergy Intermediate ADR-Halluci Verified 05/05/25 09:32 nating fentanyl Allergy Mild rash Verified 05/05/25 09:32 adhesive tape Allergy Rash Verified 05/05/25 09:32 codeine Allergy GI Verified 05/05/25 09:32 duloxetine (From Cymbalta) Allergy ALGY-Rash Verified 05/05/25 09:32 fluoxetine Allergy ADR-Migrain Verified 05/05/25 09:32 e metoclopramide (From Reglan) Allergy ADR-Shakine Verified 05/05/25 09:32 ss nitroglycerin Allergy ADV-Weaknes Verified 05/05/25 09:32 s tramadol Allergy Unknown Verified 05/05/25 09:32 trimethoprim (From Bactrim) Allergy ALGY-Hives Verified 05/05/25 09:32 ziprasidone (From Geodon) AdvReac Severe ADR-Halluci Verified 05/05/25 09:32 nating risperidone (From Risperdal) AdvReac ADR-Halluci Verified 05/05/25 09:32 nating Review of Systems Const: Denies: fever(s) or chills Card: Denies: chest pain Resp: Denies: dyspnea GI: Denies: abdominal pain : Denies: dysuria, urinary frequency or urinary urgency Musc: Denies: neck pain or back pain Skin/Breast: Denies: rash Neuro: Reports: headache(s) PFSH ED PFSH: Medical History Chronic gastritis without bleeding Insomnia Tobacco use disorder Opioid dependence, uncomplicated Cannabis dependence, uncomplicated Psychiatric care Tardive dyskinesia Esophageal stricture Cystitis cystica Restrictive lung disease Chronic back pain greater than 3 months duration Borderline personality disorder Schizoaffective disorder, bipolar type Urgency incontinence Neurogenic bladder Dysphagia COPD (chronic obstructive pulmonary disease) GERD without esophagitis Foreign body in bladder Bladder stone Chronic anxiety Surgical History H/O bladder repair surgery MESH REPAIR H/O esophagogastroduodenoscopy (09/21/20) H/O colonoscopy with polypectomy History of foot surgery sx in 2009. Screws placed by Dr. Don. S/P bronchoscopy with biopsy History of ureter stent History of breast biopsy Hx of cholecystectomy H/O: hysterectomy History of appendectomy Family History Mother No problems noted. Father No problems noted. Other Asthma Cancer Diabetes Heart disease Social History Smoking and tobacco/nicotine status: former use of tobacco/nicotine Quit status (tobacco/nicotine): considering quitting Second hand smoke exposure: Yes Alcohol intake: never Substance/Drug Use: former Lives independently: Yes Household members: spouse Marital status: Number of children: 3 Current occupational status: disabled Do you think of yourself as: Straight/Heterosexual Current gender identity: Female Physical Exam Const: COMMON NORMALS: no acute distress GENERAL APPEARANCE: cooperative and comfortable ORIENTATION/CONSCIOUSNESS: Yes awake, Yes oriented to person, Yes oriented to place and Yes oriented to time HENMT: COMMON NORMALS: normocephalic, atraumatic and hearing grossly normal bilaterally HEAD & SCALP: normocephalic and atraumatic Resp: COMMON NORMALS: normal respiratory effort, No retractions, No use of accessory muscles and clear to auscultation bilaterally AUSCULTATION: clear to auscultation bilaterally Cardio: COMMON NORMALS: regular rate, regular rhythm and No murmurs present (Cardio) RATE: regular rate RHYTHM: regular rhythm GI: COMMON NORMALS: Soft to palpation and No hepatosplenomegaly present AUSCULTATION: Yes normoactive bowel sounds PALPATION: Yes Soft to palpation, No Tenderness to palpation present (GI), No Guarding due to palpation present (GI) and Yes No hepatosplenomegaly present Extremity: COMMON NORMALS: normal to inspection, capillary refill normal, no clubbing, cyanosis or edema, no calf tenderness and no pedal edema Neuro: SENSORIUM/ORIENTATION: Yes oriented to person, Yes oriented to place and Yes oriented to time Skin: COMMON NORMALS: no rashes or lesions noted GENERAL SKIN EXAM: no rashes or lesions noted Course Vital Signs: Vital signs: Vital Signs Temperature 98.2 F 05/19/25 18:18 Pulse Rate 70 05/19/25 20:36 Respiratory Rate 16 05/19/25 20:36 Blood Pressure 129/83 05/19/25 20:36 Pulse Oximetry 95 05/19/25 20:36 Oxygen Delivery Me thod Room Air 05/19/25 20:00 MDM - Chest Pain Medical Decision Making Medical decision making Social determinants: Moderate. Patient has some mental health issues she is seen for at [facility], her mental health diagnoses create some difficulties with managing her own medical issues. This is some cognitive decline as well. Minimal support in the home setting. I reviewed the patient's medical record. I reviewed the patient's current home meds. Alternate historians: None Differential diagnosis: CVA, TIA, headache Lab Review: Labs reviewed on the chart patient has a mild elevated white count which is chronic. Troponins trended negative EKG does not show any acute change other laboratory test no clinically significant findings Imaging: Chest x-ray no acute findings no effusions no infiltrates Assessment of risk Level of risk: Low Hospitalization considerations: Not considered at this point given presentation Reexamination: Patient is pain-free he has no further symptoms. Physical exam unchanged from initial evaluation Assessment and plan: Patient reports sudden onset of headaches that emanate from the head and radiate down the neck into the chest that resolved spontaneously she has no symptoms at all now. She has had similar presentations in the past particularly with chest pain cardiac evaluation is negative. Will discharge patient home have her follow-up with primary care doctor if headaches persist can refer to neurology as appropriate. Lab Data 05/19/25 18:30 05/19/25 18:30 Radiology Impressions Chest X-Ray 05/19/25 18:20 IMPRESSION: No acute findings. Laboratory Results WBC 16.13 10^3/uL (3.29-11.43) H 05/19/25 18:30 RBC 4.01 10^6/uL (3.85-5.65) 05/19/25 18:30 Hgb 13.50 g/dL (11.27-16.99) 05/19/25 18:30 Hct 40.2 % (36-47) 05/19/25 18:30 MCV 100.2 fl (85-98) H 05/19/25 18:30 MCH 33.7 pg (27-33) H 05/19/25 18:30 MCHC 33.6 g/dL (30-55) 05/19/25 18:30 RDW 13.3 % (12.1-15.1) 05/19/25 18:30 Plt Count 221 10^3/cmm (157-399) 05/19/25 18:30 MPV 9.5 fL (7.4-10.4) 05/19/25 18:30 Neut % (Auto) 63.1 % 05/19/25 18:30 Lymph % (Auto) 27.5 % 05/19/25 18:30 [place] % (Auto) 6.7 % 05/19/25 18:30 Eos % (Auto) 1.6 % 05/19/25 18:30 Baso % (Auto) 0.6 % 05/19/25 18:30 Neut # (Auto) 10.19 10^3/uL (1.8-7.7) H 05/19/25 18:30 Lymph # (Auto) 4.4 10^3/uL (0.8-4.8) 05/19/25 18:30 [place] # (Auto) 1.1 10^3/uL (0.2-0.9) H 05/19/25 18:30 Eos # (Auto) 0.3 10^3/uL (0.0-0.8) 05/19/25 18:30 Baso # (Auto) 0.1 10^3/uL (0.0-0.1) 05/19/25 18:30 Nucleated RBC % (auto) 0 % 05/19/25 18:30 Nucleated RBCs # 0.0 /100WBC 05/19/25 18:30 Sodium 137 mmol/L (136-145) 05/19/25 18:30 Potassium 3.8 mmol/L (3.5-5.1) 05/19/25 18:30 Chloride 103 mmol/L (98-107) 05/19/25 18:30 Carbon Dioxide 23 mmol/L (22-29) 05/19/25 18:30 Anion Gap 14.8 (5-19) 05/19/25 18:30 BUN 16 mg/dL (6-20) 05/19/25 18:30 Creatinine 0.8 mg/dL (0.5-0.9) 05/19/25 18: GFR Calculation 73.9 mL/min (90-130) L 05/19/25 18:30 Glucose 93 mg/dL (65-115) 05/19/25 18:30 Calculated Osmolality 285 mOsm/kg (285-295) 05/19/25 18: Calcium 9.4 mg/dL (8.5-10.5) 05/19/25 18:30 Total Bilirubin 0.2 mg/dL (0.15-1.2) 05/19/25 18:30 AST 11 U/L (0-32) 05/19/25 18:30 ALT 10 U/L (0-33) 05/19/25 18:30 Alkaline Phosphatase 97 U/L (35-105) 05/19/25 18:30 Troponin T Baseline 10 ng/L (0-10) 05/19/25 18:30 Troponin T 120 Minute 9.92 ng/L (0-10) 05/19/25 20:16 Delta Troponin T -0.08 ABS# (0-10) L 05/19/25 20:16 C-Reactive Protein 3.0 mg/L (0.0-4.9) 05/19/25 18:30 Total Protein 6.7 g/dL (6.6-8.7) 05/19/25 18:30 Albumin 4.0 g/dL (3.5-5.2) 05/19/25 18:30 Globulin 2.7 g/dL (1.3-4.6) 05/19/25 18:30 All radiology interpretation(s) finalized by discharge EKG Data EKG 1: I personally reviewed and interpreted this EKG as follows: Interpretation: EKG 05/19/2025 1821 normal sinus rhythm rate of 72 NJ interval 133 QTc [address] changes noted compared to EKG 05/11/2025 no significant changes Discharge Plan Discharge Patient Disposition: Home Clinical Impression: Headache, Atypical chest pain Condition: Stable Prescriptions: No Action pantoprazole 40 mg tablet,delayed release (DR/EC) 40 mg PO BID (DME) SOLE Supports See Rx Instructions .Route .MEDSUPPLY Qty: 1 0RF Rx Instructions: As directed PRE-Auth prednisolone acetate 1 % drops,suspension ophthalmic (eye) fluticasone propionate [Flonase Allergy Relief] 50 mcg/actuation spray,suspension 1 spray intranasal DAILY PRN (Reason: nasal congestion) 30 Days Qty: 16 2RF Rx Instructions: administer into each nostril dicyclomine 10 mg capsule 10 mg PO BID PRN famotidine 20 mg tablet PO lubiprostone 24 mcg capsule PO albuterol sulfate 2.5 mg /3 mL (0.083 %) solution for nebulization 2.5 mg inhalation Q8H PRN (Reason: bronchospasm) 10 Days Qty: 90 0RF (DME) nebulizer See Rx Instructions .Route .MEDSUPPLY Qty: 1 0RF Rx Instructions: daily PRN ondansetron HCl 4 mg tablet 4 mg PO Q8H sucralfate [Carafate] 1 gram tablet 1 g PO QID lamotrigine 200 mg tablet 200 mg PO DAILY@06 Qty: 30 2RF Rx Instructions: Take one tablet by mouth every morning quetiapine 25 mg tablet See Rx Instructions PO .COMPLEX Qty: 150 2RF Rx Instructions: Take 1 tablet every AM, and 2 at bedtime; may take 1 additional tablet twice during the daytime, if needed for anxiety and agitation vortioxetine 20 mg tablet 20 mg PO .q am Qty: 30 2RF Rx Instructions: Take one tablet once daily vortioxetine 5 mg tablet 5 mg PO DAILY Qty: 30 2RF Rx Instructions: Take one tablet daily with the 20 mg dose trazodone 300 mg tablet 300 mg PO .q hs PRN (Reason: sleep) Qty: 30 2RF Rx Instructions: Take one tablet daily at bedtime, if needed for sleep prednisone 20 mg tablet 20 mg PO DAILY Qty: 15 0RF Rx Instructions: 60MG for 3 days 40MG for 2 days 20MG for 2 days nystatin 100,000 unit/gram powder 1 applic topical BID Qty: 30 0RF Rx Instructions: apply locally to B/L groin folds (DME) Rollator Walker See Rx Instructions .Route .MEDSUPPLY Qty: 1 0RF Rx Instructions: As directed HOME: Length of need 4 months albuterol sulfate 90 mcg/actuation HFA aerosol inhaler See Rx Instructions .ROUTE .COMPLEX Qty: 9 0RF Dose Instruction: INHALE 2 PUFFS BY MOUTH EVERY 6 HOURS NEEDED FOR SHORTNESS OF BREATH OR WHEEZING Rx Instructions: INHALE 2 PUFFS BY MOUTH EVERY 6 HOURS NEEDED FOR SHORTNESS OF BREATH OR WHEEZING cholecalciferol (vitamin D3) 1,250 mcg (50,000 unit) capsule 1,250 mcg PO .once a week 90 Days Qty: 12 0RF cyclobenzaprine 10 mg tablet 10 mg PO TID PRN (Reason: muscle spasm) Qty: 90 0RF tizanidine 4 mg tablet 4 mg PO BID PRN (Reason: muscle spasticity) Qty: 60 0RF acetaminophen 500 mg Tablet 1,000 mg PO Q6H PRN (Reason: Pain) methocarbamol 750 mg tablet 750 mg PO Q6H PRN (Reason: spasms) Qty: 20 0RF promethazine 25 mg tablet 12.5 - 25 mg PO Q6H PRN (Reason: nausea and vomiting) Qty: 10 0RF Rx Instructions: 4 doses during day; last dose no later than 4 hr before bedtime hydrocodone-acetaminophen 5-325 mg tablet 1 tab PO Q6H PRN (Reason: pain) Qty: 20 0RF Discharge Orders: Discharge ED (Routine); Ordered 05/19/25 Ordered By: Bryant Whitley Referrals: Dara Tavrea FNP [Primary Care Provider, Family Practice] Discharge Diet: Usual diet Discharge Activity: Resume usual activity Patient Instructions: Chest Pain (ED), Opioid Safety, Pain Management, Patient Portal & [place] Instructions Print Language: [place] Coding Level of Care Code ED Inside Wireman for Chg Fwd Heart Score HEART Score Components History: Slightly Suspicous EKG: Normal Age: 45-64 yrs Risk Factors: No Risk Factors Known Troponin: Baseline Trop <16 ng/L HEART Score RESULT HEART Score: 1
[2025-05-19 18:49] LABS: Slide Review Slide Review Perform
[2025-05-19 18:57] LABS: Troponin(5th) Baseline 10 ng/L (0-10)
[2025-05-19 20:00] VITALS: BP 119/65; PULSE 73; RESP 16; O2SAT 97
[2025-05-19 20:04] LABS: Alanine Aminotransferase 10 U/L (0-33); Albumin Level 4.0 g/dL (3.5-5.2); Alkaline Phosphatase 97 U/L (35-105); Anion Gap 14.8 (5-19); Aspartate Amino Transferase 11 U/L (0-32); Blood Urea Nitrogen 16 mg/dL (6-20); Calcium 9.4 mg/dL (8.5-10.5); Carbon Dioxide 23 mmol/L (22-29); Chloride 103 mmol/L (98-107); Globulin 2.7 g/dL (1.3-4.6); Glucose 93 mg/dL (65-115); Osmolality Calculated 285 mOsm/kg (285-295); Potassium 3.8 mmol/L (3.5-5.1); Sodium 137 mmol/L (136-145); Total Protein 6.7 g/dL (6.6-8.7)
[2025-05-19 20:36] VITALS: BP 129/83; PULSE 70; RESP 16; O2SAT 95
[2025-05-19 20:38] LABS: Troponin 5 2HR 9.92 ng/L (0-10)
[2025-05-19 20:39] LABS: Troponin 5 2HR Delta -0.08 ABS# (0-10)
== END 2025-05-19 20:40 | disposition home or self-care (01) ==
PROVIDERS: Emergency Provider Family Medicine; PCP Registered Nurse
DX: R51.9 Headache, unspecified (principal); R07.89 Other chest pain; Z87.891 Personal history of nicotine dependence; J44.9 Chronic obstructive pulmonary disease, unspecified
CPT/HCPCS: 36415; 71045; 80053; 84484; 85025; 86140; 93005; 96372; 99285; J0780; J9999

== ENCOUNTER 2025-06-01 19:07 | Emergency (ER) | payer MEDICARE, MEDICAID, SELFPAY ==
[2025-06-01 19:08] VITALS: BMI 29.2
[2025-06-01 19:12] VITALS: BP 156/96; PULSE 79; RESP 17; TEMP 36.9; O2SAT 96
--- OUTSIDE RECORDS SUMMARY | 2025-06-01 19:15 | XMS_ITS | Clinical Summary ---
Author Organization [facility] Address [address] [place] [address] Care Team Providers Care Surgical Services Manager Name Role Phone Sally Dong MD Primary Care Provider [phone] Allergies Active Allergy Reactions Criticality Noted Date Comments Adhesive Rash Low 02/12/2009 Codeine Nausea and Vomiting Low 02/12/2009 Duloxetine Other (See Comments) 02/24/2015 Fentanyl Hives High 11/07/2019 Fluoxetine Unknown 10/20/2018 Gabapentin Unknown,Hallucination Low 02/12/2009 Haloperidol Unknown 01/04/2022 Tardive dyskinesia Ketorolac Tromethamine Other (See Comments) Low Adverse drug reaction [place] Unknown 02/12/2009 Other reaction(s): shakey Metoclopramide Hcl [...] for Nausea/Emesis. Active naloxone (NARCAN) 4 mg/spray [place], Non-Aerosol EMERGENCY USE ONLY: Administer 1 spray [...] Hematochezia 07/07/2009 10/26/2012 Personal history of MRSA (wy thicillin resistant Staphylococcus aureus) 06/27/2009 018 Overview (10/14/2020): Under the arm abscess ~ 2015 Fever and chills 02/12/2009 10/26/2012 Hypoxemia 02/12/2009 04/06/2014 Encounters Date Type Department Care Team Description 05/19/2025 6:45 AM LEVEL VIAL CURVATURE GAUGER - 05/19/2025 11:59 PM LEVEL VIAL CURVATURE GAUGER Hospital Encounter [facility] Emergency Medical Services [place] [address] [phone] [facility] Discharge Disposition: [facility] 05/11/2025 6:20 AM LEVEL VIAL CURVATURE GAUGER - 05/11/2025 11:59 PM LEVEL VIAL CURVATURE GAUGER Hospital Encounter [facility] Emergency Medical Services [place] [address] [phone] [facility] Discharge Disposition: [facility] 05/08/2025 5:30 AM LEVEL VIAL CURVATURE GAUGER - 05/08/2025 11:59 PM LEVEL VIAL CURVATURE GAUGER Hospital Encounter [facility] Emergency Medical Services [place] [address] [phone] Ambulance, [place] [facility] Discharge Disposition: [facility] 05/01/2025 5:15 AM LEVEL VIAL CURVATURE GAUGER - 05/01/2025 11:59 PM LEVEL VIAL CURVATURE GAUGER Hospital Encounter [facility] Services [address] [place] [address] Ambulance, [facility] Discharge Disposition: [facility] 04/29/2025 6:20 AM LEVEL VIAL CURVATURE GAUGER - 04/29/2025 11:59 PM LEVEL VIAL CURVATURE GAUGER Hospital Encounter [facility] [address] [place] [address] Ambulance, [place] Discharge Disposition: [facility] 04/20/2025 5:25 AM LEVEL VIAL CURVATURE GAUGER - 04/20/2025 11:59 PM LEVEL VIAL CURVATURE GAUGER Hospital Encounter [facility] [address] [facility] [address] [place] [address] Ambulance, [facility] [facility] Discharge Disposition: [facility] 04/19/2025 8:27 PM CDT - 04/19/2025 9:59 PM CDT Emergency [facility] [address] [place] [address] Tommy Matthews MD Sprain of right shoulder, unspecified shoulder sprain type, initial encounter (Primary Dx) Discharge Disposition: Home or Self Care 04/19/2025 Travel 04/10/2025 1:07 PM CDT - 04/10/2025 11:59 PM CDT Hospital Encounter [facility] [address] [facility] [address] [place] [address] Dara Tavera FNP Discharge Disposition: Home or Self Care 04/10/2025 Orders Only [facility] Admitting [address] [facility] [address] [place] [address] Dara Tavera FNP Low back pain with sciatica, sciatica laterality unspecified, unspecified back pain laterality, unspecified chronicity (Primary Dx) 04/07/2025 10:00 PM CDT - 04/08/2025 12:56 AM CDT Emergency [facility] Emergency [facility] [address] [place] [address] Tommy Matthews MD Right flank pain (Primary Dx) Discharge Disposition: Home or Self Care 04/07/2025 Travel 03/23/2025 12:30 AM CDT - 03/23/2025 11:59 PM CDT Hospital Encounter [facility] [address] [place] [address] Ambulance, [facility] Discharge Disposition: [facility] 03/18/2025 8:36 AM CDT - 03/18/2025 10:03 AM CDT Emergency [facility] [address] [place] [address] Neck pain (Primary Dx) Discharge Disposition: Home or Self Care 03/08/2025 5:56 PM CDT - 03/08/2025 9:25 PM CDT Emergency [facility] [address] [place] [address] Anand Bower DO Flank pain (Primary Dx) Discharge Disposition: Home or Self Care 03/08/2025 Travel 03/02/2025 1:05 PM CDT - 03/02/2025 11:59 PM CDT Hospital Encounter [facility] [address] [place] [address] Ambulance, [facility] Discharge Disposition: [facility] from Last 3 Months Immunizations Immunization Administration [...] asked 05/05/2019 How often do you attend buddhist or taoism serv ices? Not asked 05/05/2019 Do you belong to any clubs o r organizations such as buddhist groups, unions, fraternal or athletic groups, or [...] worry about transportation for future doctor visits, tack picker medication, etc.? No 2024 Housing Stability [...] PM CDT Legal Sex Female 2:06 AM LEVEL VIAL CURVATURE GAUGER Gender Identity Female 03/25/2024 4:14 PM CDT [...] 02/19/2014, 02/17/2013, Additional history exists COVID-19 Vaccine (3 - 2024-2 6 season) 2025 05/08/2024, 09/24/2020 Procedures Procedure [...] CDT HEMOGLOBIN A1C Routine 06/17/2018 7:12 AM LEVEL VIAL CURVATURE GAUGER from Last 3 Months or Most Recently [...] degenerative changes and scoliosis. Narrative Procedure Note aPpito Farias MD - 04/11/2025 IMPRESSION: Please see [...] spine degenerative changes and scoliosis. Dara Tavera [facility] DIAGNOSTIC IMAGING ORDERABL ES Final Result * (ABNORMAL) CBC WITH DIFFERENTIAL (04/07/2025 11:58 PM CDT) Only the most recent of2 resultswithin the time period is included. WBC 16.1(H) 4.0 - 10.0 K/uL 04/08/2025 12:26 AM CDT [facility] RBC 3.99 3.93 - 5.22 M/uL 04/08/2025 12:26 AM CDT [facility] HEMOGLOBIN 13.3 11.2 - 15.7 g/dL 04/08/2025 12:26 AM [facility] HEMATOCRIT 38.3 34.1 - 44.9 % 04/08/2025 12:26 AM [facility] MCV 96.0(H) 79.4 - 94.8 fL 04/08/2025 12:26 AM [facility] MCH 33.3(H) 25.6 - 32.2 pg 04/08/2025 12:26 AM [facility] MCHC 34.7 32.2 - 35.5 g/dL 04/08/2025 12:26 AM [facility] RDW 12.7 11.0 - 14.5 % 04/08/2025 12:26 AM [facility] RDW-STDEV 44.9 36.9 - 56.9 fL 04/08/2025 12:26 AM [facility] PLATELETS 234 163 - 337 K/uL 04/08/2025 12:26 AM [facility] MPV 9.8(L) 10.0 - 14.8 fL 04/08/2025 12:26 AM [facility] NEUTROPHILS 75(H) 34 - 71 % 04/08/2025 12:26 AM [facility] LYMPHOCYTES 16(L) 19 - 52 % 04/08/2025 12:26 AM [facility] MONOCYTES 6 5 - 13 % 04/08/2025 12:26 AM [facility] EOSINOPHILS 2 1 - 6 % 04/08/2025 12:26 AM [facility] BASOPHILS 1 0 - 1 % 04/08/2025 12:26 AM [facility] IMMATURE GRANULOCYTES 0 % 04/08/2025 12:26 AM [facility] NEUTROPHIL ABSOLUTE 12.05(H) 1.56 - 6.13 K/uL 04/08/2025 12:26 AM [facility] LYMPHOCYTE ABSOLUTE 2.57 1.20 - 3.40 K/uL 04/08/2025 12:[address] [facility] MONOCYTE ABSOLUTE 0.99(H) 0.24 - 0.36 K/uL 04/08/2025 12:26 AM CDT [facility] EOSINOPHIL ABSOLUTE 0.27 0.04 - 0.36 K/uL 04/08/2025 12:26 AM CDT [facility] BASOPHILS ABSOLUTE 0.12(H) 0.01 - 0.08 K/uL 04/08/2025 12:26 AM CDT [facility] IMMATURE GRANULOCYTES ABSOLUTE 0.05 K/uL 04/08/2025 12:26 AM CDT [facility] Blood BLOOD SPECIMEN / Unknown Collection / Unknown 04/07/2025 11:58 PM CDT 04/08/2025 12:22 AM CDT Tommy Matthews MD HEMATOLOGY ORDERABLES Fi nal Result Performing Organization Address City/[facility]/ZIP Co de Phone Number [facility] CLIA # [id number] [address] [place] [address] * LIPASE (04/07/2025 11:58 PM CDT) Only the most recent of2 resultswithin the time period is included. LIPASE 20 13 - 60 U/L 04/08/2025 12:42 AM CDT [facility] Blood BLOOD SPECIMEN / Unknown Collection / Unknown 04/07/2025 11:58 PM CDT 04/08/2025 12:22 AM CDT Tommy Matthews MD CHEMISTRY ORDERABLES Fin al Result Performing Organization Address City/[facility]/ZIP Co de Phone Number [facility] CLIA # [id number] [address] [place] [id number] * (ABNORMAL) COMPREHENSIVE METABOLIC PANEL (04/07/2025 11:58 PM CDT) Only the most recent of2 resultswithin the time period is included. SODIUM 134(L) 136 - 145 mmol/L 04/08/2025 12:42 AM [facility] POTASSIUM 3.7 3.5 - 5.1 mmol/L 04/08/2025 12:42 AM [facility] CHLORIDE 99 98 - 107 mmol/L 04/08/2025 12:42 AM [facility] CO2 24 22 - 29 mmol/L 04/08/2025 12:42 AM [facility] CALCIUM 9.9 8.6 - 10.0 mg/dL 04/08/2025 12:42 AM [facility] BUN 14 6 - 20 mg/dL 04/08/2025 12:42 AM [facility] CREATININE 0.97(H) 0.51 - 0.95 mg/dL 04/08/2025 12:42 AM [facility] GLUCOSE 100(H) 74 - 99 mg/dL 04/08/2025 12:42 AM [facility] TOTAL PROTEIN 6.7 6.6 - 8.7 g/dL 04/08/2025 12:42 AM [facility] ALBUMIN 4.1 3.5 - 5.2 g/dL 04/08/2025 12:42 AM [facility] BILIRUBIN TOTAL 0.2 0.0 - 1.2 mg/dL 04/08/2025 12:42 AM [facility] ALKALINE PHOSPHATASE 121(H) 35 - 104 U/L 04/08/2025 12:42 AM [facility] AST 16 0 - 35 U/L 04/08/2025 12:42 AM [facility] ALT 10 0 - 35 U/L 04/08/2025 12:42 AM [facility] GFR >60 >=60 mL/min/1.7 3 sq meter 04/08/2025 12:42 AM [facility] Comment:eGFR calculated with 2020 CKD-EPI equation. Vegetarian diet, extremely high or low muscle mass, and may affect results. Cystatin C with Glomerular Filtration Rate is a suitable alternative for these patients. ANION GAP 11 5 - 20 mmol/L 04/08/2025 12:[address] [facility] Blood BLOOD SPECIMEN / Unknown Collection / Unknown 04/07/2025 11:58 PM CDT 04/08/2025 12:22 AM CDT us Tommy Matthews MD CHEMISTRY ORDERABLES Fin al Result [facility] # [id number] [address] [place] [id number] * CT ABDOMEN PELVIS WO CONTRAST (04/07/2025 [...] of the right kidney. MACRO: None Tommy Matthesw MD CT ORDERABLES Final Re sult * URINALYSIS MICROSCOPY ONLY (04/07/2025 9:30 PM CDT) WBC UA 0-2 0 - 2 /hpf 04/07/2025 9:37 PM CDT [facility] RBC UA 0-2 0 - 2 /hpf 04/07/2025 9:37 PM CDT [facility] BACTERIA UA Negative Negative /hpf 04/07/2025 9:37 PM CDT [facility] EPITHELIAL CELLS, URINE 0-5 0 - 5 /hpf 04/07/2025 9:37 PM CDT [facility] Urine URINE SPECIMEN OBTAINED BY CLEAN CATCH PROCEDURE / Unknown Collection / Unknown 04/07/2025 9:30 PM CDT 04/07/2025 9:34 PM CDT Tommy Matthews MD URINE ORDERABLES Final R esult [facility] CLIA # [id number] [address] [place] [id number] * (ABNORMAL) URINALYSIS WITH REFLEX MICROSCOPIC (04/07/2025 9:30 PM CDT) Only the most recent of2 resultswithin the time period is included. COLOR UA Yellow Pale to Dark Yellow 04/07/2025 9:37 PM CDT [facility] CLARITY UA Clear Clear 04/07/2025 9:37 PM CDT [facility] SPECIFIC GRAVITY UA <=1.005 1.003 - 1.035 04/07/2025 9:37 PM CDT [facility] PH UA 6.0 5.0 - 8.0 04/07/2025 9:37 PM CDT [facility] LEUKOCYTE ESTERASE UA 1+(A) Negative 04/07/2025 9:37 PM CDT [facility] NITRITE UA Negative Negative 04/07/2025 9:37 PM CDT [facility] PROTEIN UA Negative Negative 04/07/2025 9:37 PM CDT [facility] GLUCOSE UA Negative Negative 04/07/2025 9:37 PM CDT [facility] KETONES UA Negative Negative 04/07/2025 9:37 PM CDT [facility] UROBILINOGEN UA 0.2 <2.0 mg/dL 9:37 PM CDT [facility] BILIRUBIN UA Negative Negative 04/07/2025 9:37 PM CDT [facility] BLOOD UA Negative Negative 04/07/2025 9:37 PM CDT [facility] Urine URINE SPECIMEN OBTAINED BY CLEAN CATCH PROCEDURE / Unknown Collection / Unknown 04/07/2025 9:30 PM CDT 04/07/2025 9:34 PM CDT us Tommy Matthews MD URINE ORDERABLES Final R esult [facility] CLIA # [id number] [address] [id number] * XR ABDOMEN 1 VW (03/08/2025 8:06 [...] URINE Negative Negative 03/08/2025 6:33 PM CDT [facility] PCP QUAL, URINE Negative Negative 6:33 PM CDT [facility] COCAINE QUAL URINE Negative Negative 2024 6:33 PM CDT [facility] METHAMPHETAMINE QUAL, URINE Negative Negative 03/08/2025 6:33 PM CDT [facility] OPIATE QUAL, URINE Presumptive Positive(A) Negative 03/08/2025 6:33 PM CDT [facility] AMPHETAMINE QUAL, URINE Negative Negative 03/08/2025 6:33 PM CDT [facility] BENZODIAZEPINE QUAL, URINE Presumptive Positive(A) Negative 03/08/2025 6:33 PM CDT [facility] TRICYCLICS QUAL, URINE Presumptive Positive(A) Negative 03/08/2025 6:33 PM CDT [facility] METHADONE QUAL, URINE Negative Negative 03/08/2025 6:33 PM CDT [facility] BARBITURATE QUAL, URINE Negative Negative 03/08/2025 6:33 PM CDT [facility] OXYCODONE QUAL, URINE Negative Negative 03/08/2025 6:33 PM CDT [facility] Urine URINE SPECIMEN OBTAINED BY CLEAN CATCH PROCEDURE / Unknown Collection / Unknown 03/08/2025 6:03 PM CDT 03/08/2025 6:17 PM CDT Narrative [facility] - 03/08/2025 6:33 PM CDT This test [...] Anand Bower DO URINE ORDERABLES Final Result [facility] CLIA # [id number] [address] [place] [id number] * HEMOGLOBIN A1C (06/17/2018 7:12 AM LEVEL VIAL CURVATURE GAUGER) HEMOGLOBIN A1C 5.2 4.8 - 5.9 % 06/17/2018 9:37 AM LEVEL VIAL CURVATURE GAUGER [facility] EST. AVG GLUCOSE, A1C 103 mg/dL 06/17/2018 9:37 AM [facility] Blood Venipuncture / Unknown 06/17/2018 7:12 AM LEVEL VIAL CURVATURE GAUGER 06/17/2018 7:13 AM LEVEL VIAL CURVATURE GAUGER Narrative [facility] - 06/17/2018 9:37 AM LEVEL VIAL CURVATURE GAUGER If not available from last three months. HGB A1C INTERPRETATION NORMAL: <5.7% PRE-DIABETES: 5.7 - 6.4% DIABETES: 6.5% OR GREATER Benedicto Mcgill MD CHEMISTRY ORDERABLES Final Result [facility] CLIA # [id number] [address] [place] [address] [facility] CLIA # [id number] [address] [place] [address] from Last 3 Months or Most Recently Relevant to Health Maintenance Insurance [place]ICAID [place] Advance Directives For more information, please contact: [phone] Documents on File Type Date Recorded Patient Radio Sales Account Executive Expl anation Advance Directive POA 02/23/2024 3:51 [...] 1:52 AM 10/27/2021 2:07 PM Care Teams Surgical Services Manager Relationship Specialty Start Date End Date Sally Dong MD [address] [facility] [address] [place] [address] PCP - General Family Practice 04/07/22
--- NOTE | 2025-06-01 19:21 | ED_ITS ---
HPI - Abdominal Pain 2 General: Chief Complaint: Abdominal Pain Stated Complaint: abd pain Time Seen by Provider: 06/01/25 19:14 Source: patient Mode of arrival: EMS Limitations: no limitations History of Present Illness: Patient is a 59-year-old female who is well-known to our emergency department here via EMS for evaluation of abdominal pain. Patient states she chronically has abdominal pain and has follow-up with GI in [place]. She states she takes many stomach medications including Carafate, Famotidine, Protonix, Zofran to help with her pain. She states normally when she has flares she can take her stomach medications and this will help however this evening she ended up vomiting them back up thus prompting her to contact EMS. Patient has not noticed any changes to bowel movements. No fevers. No yellowing to her skin or eyes. She is not complaining of any chest pain, shortness of breath, difficulty breathing. MD elicited complaint: abdominal pain Pertinent past history: other (chronic abdominal pain) Onset (ago): hour(s) Pain Consistency: constant Location: Diffuse Severity: severe Radiation: none Migration to: no migration Exacerbating factors: nothing Relieving factors: other (sometimes her stomach meds ) Associated Symptoms: Reports nausea and vomiting; Denies change in bowel habits, chills, dysuria, fever(s), hematochezia, hematuria, hematemesis, melena and syncope Related Data Home Medications ?Medication ?Instructions ?Recorded ?Confirmed acetaminophen 500 mg tablet 1,000 mg PO Q6H PRN Pain 0 07/09/21 05/13/25 pantoprazole 40 mg tablet,delayed 40 mg PO BID 4 05/13/25 release ondansetron HCl 4 mg tablet 4 mg PO Q8H 01/22/2405/13 prednisolone acetate 1 % eye drp ophthalmic (eye) 04/2005/13/25 drops,suspension dicyclomine 10 mg capsule 10 mg PO BID PRN 05/27/24 sucralfate 1 gram tablet (Carafate) 1 g PO QID 4 05/13/25 famotidine 20 mg tablet mg PO 09/23/24 05/13/25 lubiprostone 24 mcg capsule mcg PO 09/23/24 05/13/25 Previous Rx's ?Medication ?Instructions ?Recorded nystatin 100,000 unit/gram topical 1 applic topical BI D #30 grams 06/16/22 powder SOLE Supports #1 ea 01/01/24 fluticasone propionate 50 1 spray intranasal DAILY PRN nasal 05/10/24 mcg/actuation nasal congestion 30 days #16 grams spray,suspension (Flonase Allergy Relief) Rollator Walker #1 ea 09/06/24 promethazine 25 mg tablet 12.5 - 25 mg (0.5 - 1 x 25 m g) PO 10/05/24 Q6H PRN nausea and vomiting #10 tabs albuterol sulfate 90 mcg/actuation See Rx Instructions .Route 11/22/24 aerosol inhaler .COMPLEX #9 grams cholecalciferol (vitamin D3) 1,250 1,250 mcg PO .once a week 90 days 12/16/24 mcg (50,000 unit) capsule #12 caps albuterol sulfate 2.5 mg/3 mL 2.5 mg (3 mL) inhalation Q8H PRN 03/26/25 (0.083 %) solution for nebulization bronchospasm 10 da ys #90 mL nebulizer #1 ea 03/26/25 cyclobenzaprine 10 mg tablet 10 mg PO TID PRN muscle s pasm #90 04/01/25 tabs lamotrigine 200 mg tablet 200 mg PO DAILY@06 #30 tabs 04/10/25 trazodone 300 mg tablet 300 mg PO .q hs PRN sleep #3 0 tabs 04/10/25 vortioxetine 20 mg tablet 20 mg PO .q am #30 tabs 03/20 09/10 vortioxetine 5 mg tablet 5 mg PO DAILY #30 tabs 04/10 hydrocodone 5 mg-acetaminophen 325 1 tab PO Q6H PRN pa in #20 tabs 04/29/25 mg tablet methocarbamol 750 mg tablet 750 mg PO Q6H PRN spasms # 20 tabs 05/01/25 tizanidine 4 mg tablet 4 mg PO BID PRN muscle spast icity 05/12/25 #60 tabs prednisone 20 mg tablet 20 mg PO DAILY #15 tabs 04/20 11/10 quetiapine 25 mg tablet See Rx Instructions PO .COMP [place] 05/23/25 #120 tabs Allergies Allergy/AdvReac Type Severity Reaction Status Date / Time haloperidol (From Haldol) Allergy Severe unknown Verified 05/05/25 09:32 Penicillins Allergy Severe ALGY-Anaphy Verified 05/05/25 09:32 laxis sulfamethoxazole (From Allergy Severe ALGY-Hives Verified 05/05/25 09:32 Bactrim) Tetracyclines Allergy Severe ALGY-Hives Verified 05/05/25 09:32 gabapentin (From Neurontin) Allergy Intermediate ADR-Halluci Verified 05/05/25 09:32 nating ketorolac (From Toradol) Allergy Intermediate ALGY-Rash Verified 05/05/25 09:32 lithium Allergy Intermediate ADR-Halluci Verified 05/05/25 09:32 nating fentanyl Allergy Mild rash Verified 05/05/25 09:32 adhesive tape Allergy Rash Verified 05/05/25 09:32 codeine Allergy GI Verified 05/05/25 09:32 duloxetine (From Cymbalta) Allergy ALGY-Rash Verified 05/05/25 09:32 fluoxetine Allergy ADR-Migrain Verified 05/05/25 09:32 e metoclopramide (From Reglan) Allergy ADR-Shakine Verified 05/05/25 09:32 ss nitroglycerin Allergy ADV-Weaknes Verified 05/05/25 09:32 s tramadol Allergy Unknown Verified 05/05/25 09:32 trimethoprim (From Bactrim) Allergy ALGY-Hives Verified 05/05/25 09:32 ziprasidone (From Geodon) AdvReac Severe ADR-Halluci Verified 05/05/25 09:32 nating risperidone (From Risperdal) AdvReac ADR-Halluci Verified 05/05/25 09:32 nating Review of Systems 2 Const: Denies: fever(s), chills, body aches, fatigue or malaise Card: Denies: chest pain, palpitations, edema, swelling of feet/ankles, lightheadedness, syncope, pre-syncope or dyspnea on exertion Resp: Denies: dyspnea GI: Reports: abdominal pain, nausea and vomiting; Denies: hematemesis, dysphagia, change in bowel habits, rectal pain, hematochezia or melena : Denies: flank pain, dysuria or hematuria Musc: Denies: neck pain, back pain, extremity pain, extremity swelling, joint pain, joint swelling or joint redness Skin/Breast: Denies: rash Neuro: Denies: headache(s) or dizziness PFSH ED 2 PFSH: Medical History Chronic gastritis without bleeding Insomnia Tobacco use disorder Opioid dependence, uncomplicated Cannabis dependence, uncomplicated Psychiatric care Tardive dyskinesia Esophageal stricture Cystitis cystica Restrictive lung disease Chronic back pain greater than 3 months duration Borderline personality disorder Schizoaffective disorder, bipolar type Urgency incontinence Neurogenic bladder Dysphagia COPD (chronic obstructive pulmonary disease) GERD without esophagitis Foreign body in bladder Bladder stone Chronic anxiety Surgical History H/O bladder repair surgery MESH REPAIR H/O esophagogastroduodenoscopy (09/21/20) H/O colonoscopy with polypectomy History of foot surgery sx in 2009. Screws placed by Dr. Don. S/P bronchoscopy with biopsy History of ureter stent History of breast biopsy Hx of cholecystectomy H/O: hysterectomy History of appendectomy Family History Mother No problems noted. Father No problems noted. Other Asthma Cancer Diabetes Heart disease Social History Smoking and tobacco/nicotine status: former use of tobacco/nicotine Quit status (tobacco/nicotine): considering quitting Second hand smoke exposure: Yes Alcohol intake: never Substance/Drug Use: former Lives independently: Yes Household members: spouse Marital status: Number of children: 3 Current occupational status: disabled Do you think of yourself as: Straight/Heterosexual Current gender identity: Female Physical Exam 2 Const: COMMON NORMALS: no acute distress, average body habitus, patient oriented x3, no limitations, healthy appearing, alert and well nourished G ENERAL APPEARANCE: cooperative ORIENTATION/CONSCIOUSNESS: Yes awake, Yes oriented to person, Yes oriented to place and Yes oriented to time Eye: COMMON NORMALS: no scleral icterus Chest: COMMONS NORMALS: normal inspection of the chest and normal palpation of entire chest wall Resp: COMMON NORMALS: normal respiratory effort and clear to auscultation bilaterally AUSCULTATION: clear to auscultation bilaterally Cardio: COMMON NORMALS: regular rate and regular rhythm RATE: regular rate RHYTHM: regular rhythm GI: COMMON NORMALS: Normal to inspection, nondistended, normoactive bowel sounds present, Soft to palpation, No hepatosplenomegaly present and no masses INSPECTION: Yes normal to inspection AUSCULTATION: Yes normoactive bowel sounds PALPATION: Yes Soft to palpation, Yes Tenderness to palpation present (GI) (diffuse), No Guarding due to palpation present (GI), No Rigid due to palpation and Yes No hepatosplenomegaly present : COMMON NORMALS: Yes no CVA tenderness BLADDER/KIDNEY EXAM: Yes no CVA tenderness Back/Pelvis: COMMON NORMALS: no CVA tenderness, thoracic and lumbar spine normal to inspection and no thoracic nor lumbar tenderness Extremity: COMMON NORMALS: normal to inspection, capillary refill normal, no calf tenderness and no pedal edema GENERAL: Yes normal exam except as noted Neuro: [place] COMA SCALE: document GCS findings Cisco coma scale eye opening: Spontaneous Cisco coma scale verbal response: Orientated Cisco coma scale motor response: Obey commands Cisco coma scale total score: 15 COMMON NORMALS: patient oriented x3, moves all extremities, no focal motor deficits and no sensory deficits noted SENSORIUM/ORIENTATION: Yes alert, Yes oriented to person, Yes oriented to place and Yes oriented to time Skin: COMMON NORMALS: no rashes or lesions noted GENERAL SKIN EXAM: no rashes or lesions noted Course 2 Vital Signs: Vital signs: Vital Signs Temperature 98.4 F 06/01/25 19:12 Pulse Rate 67 06/01/25 20:46 Respiratory Rate 17 06/01/25 20:46 Blood Pressure 124/65 06/01/25 20:46 Pulse Oximetry 94 06/01/25 20:46 MDM - Abdominal Pain Medical Decision Making Patient is a 59-year-old female well-known to our emergency department here for acute on chronic abdominal pain. Vital signs have remained stable throughout her emergency department stay. Blood work overall is nonactionable. Mild hypokalemia 3.3. She was given oral replacement for this. Upon re-examination after pain/nausea medications, patient states she feels significantly better and feels comfortable going home at this time. Will allow discharge. Return to ED precautions discussed. Differential Diagnosis Likely abdominal pain, constipation, gastroenteritis, pancreatitis and small bowel obstruction Medical Records I reviewed the patient's medical records. Lab Data I reviewed the patient's lab results. 06/01/25 19:36 06/01/25 19:36 Labs/Radiology: Laboratory Results WBC 16.25 10^3/uL (3.29-11.43) H 06/01/25 19:36 RBC 3.91 10^6/uL (3.85-5.65) 06/01/25 19:36 Hgb 13.00 g/dL (11.27-16.99) 06/01/25 19:36 Hct 39.0 % (36-47) 06/01/25 19:36 MCV 99.7 fl (85-98) H 06/01/25 19:36 MCH 33.2 pg (27-33) H 06/01/25 19:36 MCHC 33.3 g/dL (30-55) 06/01/25 19:36 RDW 13.4 % (12.1-15.1) 06/01/25 19:36 Plt Count 218 10^3/cmm (157-399) 06/01/25 19:36 MPV 9.7 fL (7.4-10.4) 06/01/25 19:36 Neut % (Auto) 74.1 % 06/01/25 19:36 Lymph % (Auto) 16.6 % 06/01/25 19:36 [place] % (Auto) 6.5 % 06/01/25 19:36 Eos % (Auto) 1.8 % 06/01/25 19:36 Baso % (Auto) 0.6 % 06/01/25 19:36 Neut # (Auto) 12.05 10^3/uL (1.8-7.7) H 06/01/25 19:36 Lymph # (Auto) 2.7 10^3/uL (0.8-4.8) 06/01/25 19:36 [place] # (Auto) 1.1 10^3/uL (0.2-0.9) H 06/01/25 19:36 Eos # (Auto) 0.3 10^3/uL (0.0-0.8) 06/01/25 19:36 Baso # (Auto) 0.1 10^3/uL (0.0-0.1) 06/01/25 19:36 Nucleated RBC % (auto) 0 % 06/01/25 19:36 Nucleated RBCs # 0.0 /100WBC 06/01/25 19:36 Sodium 140 mmol/L (136-145) 06/01/25 19:36 Potassium 3.3 mmol/L (3.5-5.1) L 06/01/25 19:36 Chloride 105 mmol/L (98-107) 06/01/25 19:36 Carbon Dioxide 25 mmol/L (22-29) 06/01/25 19:36 Anion Gap 13.3 (5-19) 06/01/25 19:36 BUN 14 mg/dL (6-20) 06/01/25 19:36 Creatinine 0.8 mg/dL (0.5-0.9) 06/01/25 19:36 GFR Calculation 73.9 mL/min (90-130) L 06/01/25 19:36 Glucose 98 mg/dL (65-115) 06/01/25 19:36 Calculated Osmolality 290 mOsm/kg (285-295) 06/01/25 19:36 Calcium 9.1 mg/dL (8.5-10.5) 06/01/25 19:36 Total Bilirubin 0.2 mg/dL (0.15-1.2) 06/01/25 19:36 AST 14 U/L (0-32) 06/01/25 19:36 ALT 7 U/L (0-33) 06/01/25 19:36 Alkaline Phosphatase 106 U/L (35-105) H 06/01/25 19:36 Total Protein 6.8 g/dL (6.6-8.7) 06/01/25 19:36 Albumin 4.2 g/dL (3.5-5.2) 06/01/25 19:36 Globulin 2.6 g/dL (1.3-4.6) 06/01/25 19:36 Lipase 23 U/L (13-60) 06/01/25 19:36 Urine Color Yellow (Yellow) 06/01/25 20:07 Urine Appearance Clear (CLEAR) 06/01/25 20:07 Urine pH 5.5 (5-7) 06/01/25 20:07 Ur Specific [place] 1.009 (1.005-1.030) 06/01/25 20:07 Urine Protein Negative (Negative) 06/01/25 20:07 Urine Glucose (UA) Negative (Normal) 06/01/25 20:07 Urine Ketones Negative (Negative) 06/01/25 20:07 Urine Blood Trace (Negative) A 06/01/25 20:07 Urine Nitrate Negative (Negative) 06/01/25 20:07 Urine Bilirubin Negative (Negative) 06/01/25 20:07 Urine Urobilinogen 0.2 mg/dL (Negative) 06/01/25 20:07 Ur Leukocyte Esterase 1+ (Negative) A 06/01/25 20:07 Urine RBC 0-2 /hpf (0-2) 06/01/25 20:07 Urine WBC 11-20 /hpf (0-5) H 06/01/25 20:07 Ur Squamous Epith Cells 0-5 /hpf (0-5) 06/01/25 20:07 Amorphous Sediment Not Reportable 06/01/25 20:07 Urine Bacteria None seen /hpf (NONE) 06/01/25 20:07 Hyaline Casts 0.40 /lpf 06/01/25 20:07 No radiology studies performed this visit Discharge Plan Discharge Patient Disposition: Home Clinical Impression: Abdominal pain, chronic, generalized Condition: Stable Prescriptions: No Action pantoprazole 40 mg tablet,delayed release (DR/EC) 40 mg PO BID (DME) SOLE Supports See Rx Instructions .Route .MEDSUPPLY Qty: 1 0RF Rx Instructions: As directed PRE-Auth prednisolone acetate 1 % drops,suspension ophthalmic (eye) fluticasone propionate [Flonase Allergy Relief] 50 mcg/actuation spray,suspension 1 spray intranasal DAILY PRN (Reason: nasal congestion) 30 Days Qty: 16 2RF Rx Instructions: administer into each nostril dicyclomine 10 mg capsule 10 mg PO BID PRN famotidine 20 mg tablet PO lubiprostone 24 mcg capsule PO albuterol sulfate 2.5 mg /3 mL (0.083 %) solution for nebulization 2.5 mg inhalation Q8H PRN (Reason: bronchospasm) 10 Days Qty: 90 0RF (DME) nebulizer See Rx Instructions .Route .MEDSUPPLY Qty: 1 0RF Rx Instructions: daily PRN ondansetron HCl 4 mg tablet 4 mg PO Q8H sucralfate [Carafate] 1 gram tablet 1 g PO QID lamotrigine 200 mg tablet 200 mg PO DAILY@06 Qty: 30 2RF Rx Instructions: Take one tablet by mouth every morning vortioxetine 20 mg tablet 20 mg PO .q am Qty: 30 2RF Rx Instructions: Take one tablet once daily vortioxetine 5 mg tablet 5 mg PO DAILY Qty: 30 2RF Rx Instructions: Take one tablet daily with the 20 mg dose trazodone 300 mg tablet 300 mg PO .q hs PRN (Reason: sleep) Qty: 30 2RF Rx Instructions: Take one tablet daily at bedtime, if needed for sleep prednisone 20 mg tablet 20 mg PO DAILY Qty: 15 0RF Rx Instructions: 60MG for 3 days 40MG for 2 days 20MG for 2 days nystatin 100,000 unit/gram powder 1 applic topical BID Qty: 30 0RF Rx Instructions: apply locally to B/L groin folds (DME) Rollator Walker See Rx Instructions .Route .MEDSUPPLY Qty: 1 0RF Rx Instructions: As directed HOME: Length of need 4 months albuterol sulfate 90 mcg/actuation HFA aerosol inhaler See Rx Instructions .ROUTE .COMPLEX Qty: 9 0RF Dose Instruction: INHALE 2 PUFFS BY MOUTH EVERY 6 HOURS NEEDED FOR SHORTNESS OF BREATH OR WHEEZING Rx Instructions: INHALE 2 PUFFS BY MOUTH EVERY 6 HOURS NEEDED FOR SHORTNESS OF BREATH OR WHEEZING cholecalciferol (vitamin D3) 1,250 mcg (50,000 unit) capsule 1,250 mcg PO .once a week 90 Days Qty: 12 0RF cyclobenzaprine 10 mg tablet 10 mg PO TID PRN (Reason: muscle spasm) Qty: 90 0RF tizanidine 4 mg tablet 4 mg PO BID PRN (Reason: muscle spasticity) Qty: 60 0RF quetiapine 25 mg tablet See Rx Instructions PO .COMPLEX Qty: 120 2RF Rx Instructions: Take 1 tablet every AM, and 2 at bedtime; may take 1 additional tablet during the day, if needed for agitation acetaminophen 500 mg Tablet 1,000 mg PO Q6H PRN (Reason: Pain) methocarbamol 750 mg tablet 750 mg PO Q6H PRN (Reason: spasms) Qty: 20 0RF promethazine 25 mg tablet 12.5 - 25 mg PO Q6H PRN (Reason: nausea and vomiting) Qty: 10 0RF Rx Instructions: 4 doses during day; last dose no later than 4 hr before bedtime hydrocodone-acetaminophen 5-325 mg tablet 1 tab PO Q6H PRN (Reason: pain) Qty: 20 0RF Discharge Orders: Discharge ED (Routine); Ordered 06/01/25 Ordered By: Shayla Jaquez Referrals: Dara Tavera FNP [Primary Care Provider, Family Practice] Patient Instructions: Abdominal Pain (ED), Patient Portal & [place] Instructions Activity Restrictions/Additional Instructions: As we discussed, symptoms at time of discharge are improved. Please follow-up with your primary care provider and/or GI provider for continued evaluation of your chronic abdominal pain. You may return to the emergency department at anytime for onset of severe abdominal pain, repetitive episodes of vomiting, fevers, generally feeling worse or unwell, or any other concerns you may have. Print Language: Liberian Coding Level of Care Code ED Medical Instrument [employer] for Shellie Guallpa
[2025-06-01 19:28] VITALS: RESP 18; O2SAT 97
[2025-06-01] MEDS: morphine 4 mg/mL SDV 1 mL IVP (19:28)
[2025-06-01] MEDS: pantoprazole 40 mg SDV IVP (19:28)
[2025-06-01] MEDS: ondansetron 2 mg/ML SDV 2 mL 4 MG IVP (19:29)
[2025-06-01 19:49] LABS: Hematocrit 39.0 % (36-47); Hemoglobin 13.00 g/dL (11.27-16.99); Mean Corpuscular HGB Conc 33.3 g/dL (30-55); Mean Corpuscular Hemoglobin 33.2 pg (27-33); Mean Corpuscular Volume 99.7 fl (85-98); Nucleated Red Blood Cells % 0 %; Platelet Count 218 10^3/cmm (157-399); Red Blood Count 3.91 10^6/uL (3.85-5.65); White Blood Count 16.25 10^3/uL (3.29-11.43)
[2025-06-01 19:51] VITALS: BP 145/69; PULSE 72; RESP 21; O2SAT 96
--- NOTE | 2025-06-01 19:53 | PC.NURSE ---
need urine sample notified patient she states that she is not peeing a lot right now but will let us know if she needs to go. patient has hat for toilet and supplies for clean catch
[2025-06-01 19:57] LABS: Alanine Aminotransferase 7 U/L (0-33); Albumin Level 4.2 g/dL (3.5-5.2); Alkaline Phosphatase 106 U/L (35-105); Anion Gap 13.3 (5-19); Aspartate Amino Transferase 14 U/L (0-32); Blood Urea Nitrogen 14 mg/dL (6-20); Calcium 9.1 mg/dL (8.5-10.5); Carbon Dioxide 25 mmol/L (22-29); Chloride 105 mmol/L (98-107); Globulin 2.6 g/dL (1.3-4.6); Glucose 98 mg/dL (65-115); Lipase 23 U/L (13-60); Osmolality Calculated 290 mOsm/kg (285-295); Potassium 3.3 mmol/L (3.5-5.1); Sodium 140 mmol/L (136-145); Total Protein 6.8 g/dL (6.6-8.7)
[2025-06-01 20:14] LABS: Glucose Urine UA Negative (Normal); Nitrate Urine Negative (Negative); Specific Gravity, Urine 1.009 (1.005-1.030)
[2025-06-01 20:19] LABS: Add Urine Microscopic? YES
[2025-06-01] MEDS: potassium chloride oral liq 20 mEq/15 mL UDC 40 MEQ PO (20:19)
[2025-06-01] MEDS: HYDROmorphone 0.5 MG/0.5 ML INJ 1 MG IVP (20:20)
[2025-06-01 20:46] VITALS: BP 124/65; PULSE 67; RESP 17; O2SAT 94
[2025-06-01 21:01] VITALS: BP 93/56; PULSE 77; RESP 18; O2SAT 94
== END 2025-06-01 21:03 | disposition home or self-care (01) ==
PROVIDERS: Emergency Provider Physician Assistant; PCP Registered Nurse
DX: R10.84 Generalized abdominal pain (principal); G89.29 Other chronic pain
CPT/HCPCS: 80053; 81001; 83690; 85025; 96361; 96374; 96375; 99284; J0780; J1171; J2270; J2405; J2470; J7030; J9999

== ENCOUNTER → 2025-06-05 09:45 | Outpatient (BNVA) | payer MEDICARE, MEDICAID, SELFPAY | PROVIDERS: PCP Registered Nurse; Visit Provider Nurse Practitioner Family | DX: M54.12 Radiculopathy, cervical region (principal); M54.2 Cervicalgia; M54.9 Dorsalgia, unspecified | CPT/HCPCS: 99214 ==

== ENCOUNTER 2025-06-14 20:40 | Emergency (ER) | payer MEDICARE, MEDICAID, SELFPAY ==
--- OUTSIDE RECORDS SUMMARY | 2025-06-09 12:20 | XMS_ITS | Encounter Summary ---
Author Organization [facility] Address [address] [place] [address] Care Team Providers Care Rate Setter Name Role Phone Sally Dong MD Primary Care Provider [phone] Reason for Visit * Reason Comments Skin Problem Encounter Details Date Type Department Care Team (Late st Contact Info) Description 06/09/2025 12:20 PM DECORATING INSTRUCTOR Office Visit [facility] Medicine [place] [address] [address] Shayla Keating, [facility] [address] [address] Oral abscess (Primary Dx) Social History Tobacco Use Types [...] asked 05/05/2019 How often do you attend sikh or anabaptism serv ices? 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 No 2024 Housing Stability [...] PM CDT Legal Sex Female 2:06 AM DECORATING INSTRUCTOR Gender Identity Female 03/25/2024 4:14 PM CDT Sexual Orientation Not on file documented as of this encounter Last Filed Vital Signs Vital Sign Reading Time Taken Comments Blood Pressure 138/86 06/09/2025 11:29 AM DECORATING INSTRUCTOR Pulse 102 06/09/2025 11:29 AM DECORATING INSTRUCTOR Temperature 36.7 C (98 F) 06/09/2025 11:29 AM DECORATING INSTRUCTOR Respiratory Rate 17 06/09/2025 11:29 AM DECORATING INSTRUCTOR Oxygen Saturation 96% 06/09/2025 11:29 AM DECORATING INSTRUCTOR Inhaled Oxygen Concentration - - Weight 77.1 kg (170 lb) 06/09/2025 11:29 AM DECORATING INSTRUCTOR Height 157.5 cm (5' 2 ) 06/09/2025 11:29 AM DECORATING INSTRUCTOR Body Mass Index 31.09 06/09/2025 11:29 AM DECORATING INSTRUCTOR documented in this encounter Progress Notes * Shayla Keating, URBAN DESIGN CONSULTANT - 06/09/2025 11:47 AM CST [facility] 06/09/2025 Subjective: Latesha Wilhelm is a 59 y.o. female who comes today for evaluation of Skin Problem . History of Present Illness The patient is a 59-year-old female who presents with a painful spot next to her mouth. She reports the onset of the lesion yesterday, which has since doubled in size and developed a red streak. The area is described as being hard and extremely painful. She has previously been prescribed doxycycline during an emergency room visit and has also taken Cipro. She attempted to alleviate the swelling with ice, but this was unsuccessful. Review of Systems Constitutional: Negative for chills, fever and malaise/fatigue. HENT: Negative for congestion, ear pain and sore throat. Lip swelling and pain Eyes: Negative for blurred vision. Respiratory: Negative for cough and shortness of breath. Cardiovascular: Negative for chest pain. Gastrointestinal: Negative for abdominal pain, constipation, diarrhea, nausea and vomiting. Genitourinary: Negative for dysuria and urgency. Musculoskeletal: Negative for joint pain and myalgias. Neurological: Negative for dizziness and headaches. All other systems reviewed and are negative. Objective: Vitals: 06/09/25 1129 Temp: 98 ??F (36.7 ??C) Pulse: (!) 102 BP: 138/86 Resp: 17 SpO2: 96% Physical Exam Constitutional: General: She is not in acute distress. Appearance: Normal appearance. She is not ill-appearing or toxic-appearing. HENT: Head: Normocephalic and atraumatic. Comments: Lump to upper left side of lip, painful and firm Right Ear: Tympanic membrane normal. Left Ear: Tympanic membrane normal. Nose: Nose normal. Mouth/Throat: Mouth: Mucous membranes are moist. Eyes: Extraocular Movements: Extraocular movements intact. Pupils: Pupils are equal, round, and reactive to light. Neck: Vascular: No JVD. Cardiovascular: Rate and Rhythm: Normal rate and regular rhythm. Pulses: Normal pulses. Heart sounds: Normal heart sounds. Pulmonary: Effort: Pulmonary effort is normal. No respiratory distress. Breath sounds: Normal breath sounds and air entry. No decreased air movement. No wheezing, rhonchi or rales. Abdominal: General: Abdomen is flat. Bowel sounds are normal. Palpations: Abdomen is soft. Tenderness: There is no abdominal tenderness. Musculoskeletal: General: Normal range of motion. Cervical back: Normal range of motion and neck supple. Skin: General: Skin is warm and dry. Neurological: General: No focal deficit present. Mental Status: She is alert and oriented to person, place, and time. Psychiatric: Mood and Affect: Mood normal. Behavior: Behavior normal. Past medical history, surgical history and social history reviewed. Past Medical History: Diagnosis Date Acute cystitis Ankle fracture, left Anxiety Arthritis Asthma Atrial fibrillation ([facility]) Avascular necrosis ([facility]) Bipolar disorder ([facility]) Bladder stones Bronchitis Calculus of kidney 2012 Cannabinoid hyperemesis syndrome Clostridium difficile enterocolitis Colitis Community acquired pneumonia Congestive heart failure ([facility]) 02/17/2022 COPD (chronic obstructive pulmonary disease) ([facility]) Depression Diverticulitis Drug-seeking behavior Flank pain Flu Gastritis Gastroparesis GERD (gastroesophageal reflux disease) Hematuria HTN (hypertension) Hyperlipidemia Hypotension IBS (irritable bowel syndrome) 07/21/2020 IBS (irritable bowel syndrome) Influenza Migraines MRSA (methicillin resistant staph aureus) culture positive 01/2020 states in her lungs MRSA (methicillin resistant Staphylococcus aureus) states MRSA sputum Pneumonia PTSD (post-traumatic stress disorder) 04/29/2013 found out yesterday. Rectal bleeding Respiratory failure ([facility]) Schizoaffective disorder ([facility]) Seizure disorder ([facility]) last one 5 years ago Shortness of breath Somatization disorder Substance abuse ([facility]) meth, and marijuana Suicidal ideation URI (upper respiratory infection) UTI (urinary tract infection) VRE (vancomycin resistant enterococcus) culture positive 10/30/2013 Weight loss Procedures Assessment/Plan: ICD-10-CM ICD-9-CM 1. Oral abscess K12.2 528.3 doxycycline hyclate (VIBRAMYCIN) 100 mg capsule Assessment & Plan 1. Perioral infection: - Painful spot next to the mouth with swelling and erythema. Firm base. - Appears to be infected hair follicle. - Discussion about the infection and the need for antibiotic treatment. Advised to return if no improvement by Monday or if condition worsens by Monday. - Doxycycline prescribed, to be taken with food to prevent nausea. Medication sent to pharmacy. Follow-up: Return if no improvement by Monday or if condition worsens by Monday. Shayla BERNSTEIN- This note was automatically generated by a [employer] AI technology ([employer]), reviewed, edited, and finalized by Shayla Keating. The author of this note, patient (or authorized medical device sales representative), and all other persons present consent to the audio recording of this visit for charting documentation purposes. RATING INSTRUCTOR documented in this encounter Plan of Treatment Not on file documented as of this encounter Visit Diagnoses Diagnosis Oral abscess- Primary Cellulitis and abscess of oral soft tissues documented in this encounter Additional Health Concerns Assessment Noted Time PHQ-9 Depression Total Score: 3 10/01/19 23 4:46 PM CDT documented as of this encounter Care Teams Rate Setter Relationship Specialty Start Date End Date Sally Dong MD [address] [facility] [address] [place] [phone] PCP - General Family Practice 04/07/22 documented as of this encounter
--- OUTSIDE RECORDS SUMMARY | 2025-06-14 20:46 | XMS_ITS | Encounter Summary ---
Author Organization [facility] Address [address] [facility] Attn: [place] [address] Care Team Providers Care Audit Partner Name Role Phone Dara Tavera AMANDEEP Primary Care Provider Encounter Details Date Type Department Care Team (Late st Contact Info) Description 05/02/2003 Inpatient Historical Hood Kerr Jr., MD [address] [facility] [place] [id number] SCHIZOAFF-SUBCHR/EXACER (CMS/HCC) (Primary Dx) Social History Tobacco Use Types Packs/Day Years Used Date Smoking Tobacco: Never Assessed Comments Unknown Sex and Gender Information Value Date Recorded Sex Assigned at Not on file Legal Sex Female 5:22 AM RICE DRIER OPERATOR Gender Identity Not on file [...] 10/30/13 Resolved 11/04/2013 11/04/2013 8 10:33 AM RICE DRIER OPERATOR R/O COVID-19 12/25/2019 12/25/2019 12/26/2019 2:46 PM CDT R/O COVID-19 05/09/2020 05/09/2020 05/09/2020 12:1 7 PM RICE DRIER OPERATOR documented as of this encounter Care Teams Audit Partner Relationship Specialty Start Date End Date Dara Tavera FNP [address] [place] [phone] PCP - General NURSE PRACTITIONER 10/13/18 documented as of this encounter
--- OUTSIDE RECORDS SUMMARY | 2025-06-14 20:46 | XMS_ITS | Encounter Summary ---
Author Organization [facility] Address [address] [place] [address] Care Team Providers Care Heel Seam Rubber Name Role Phone Dara Tavera Primary Care Provider [phone] Encounter Details Date Type Department Care Team (Latest Contact Info) Description 12/09/2004 Outpatient Historical [facility] Medicine [place] [address] [facility] [address] [place] [address] aFiza Petersen MD NO ADDRESS ON FILE URIN TRACT INFECTION NOS (Primary Dx); ABDOMINAL PAIN UNSPEC SITE; ABDOMINAL TENDERNESS UNSP SITE Social History Tobacco Use Types Packs/Day Years Used Date Smoking Tobacco: Never Assessed Comments Unknown Sex and Gender Information Value Date Recorded Sex Assigned at Not on file Legal Sex Female 5:22 AM CHILD CARE ASSISTANT Gender Identity Not on file Sexual [...] 11/04/2013 11/04/2013 8 10:33 AM CHILD CARE ASSISTANT R/O COVID-19 12/25/2019 12/25/2019 12/26/2019 2:46 PM CDT R/O COVID-19 05/09/2020 05/09/2020 05/09/2020 12:1 7 PM CHILD CARE ASSISTANT documented as of this encounter Care Teams Heel Seam Rubber Relationship Specialty Start Date End Date Dara Tavera FNP [address] [place] [phone] PCP - General NURSE PRACTITIONER 10/13/18 documented as of this encounter
--- OUTSIDE RECORDS SUMMARY | 2025-06-14 20:46 | XMS_ITS | Encounter Summary ---
Author Organization [facility] Address [address] [place] [address] Care Team Providers Care Office Machine Servicer Apprentice Name Role Phone Dara Tavera Primary Care Provider Encounter Details Date Type Department Care Team (Latest Contact Info) Description 02/11/2004 Outpatient Historical [facility] [address] [place] [address] AMBULANCE, [facility] NONPSYCHOTIC MENTAL DISORDER NOS (Primary Dx) Social History Tobacco Use Types Packs/Day Years Used Date Smoking Tobacco: Never Assessed Comments Unknown Sex and Gender Information Value Date Recorded Sex Assigned at Not on file Legal Sex Female 5:22 AM LIGHT RAIL VEHICLE OPERATOR Gender Identity Not on file Sexual Orientation Not on file documented as of this encounter Plan of Treatment Not on file documented as of this encounter Visit Diagnoses Diagnosis Unspecified nonpsychotic mental disorder- Primary documented in this encounter Additional Health Concerns Infection Onset Date Last Indicated Resolved Time VRE Comment:Urine 10/30/13 Resolved 11/04/2013 11/04/2013 8 10:33 AM LIGHT RAIL VEHICLE OPERATOR R/O COVID-19 12/25/2019 12/25/2019 12/26/2019 2:46 PM CDT R/O COVID-19 05/09/2020 05/09/2020 05/09/2020 12:1 7 PM LIGHT RAIL VEHICLE OPERATOR documented as of this encounter Care Teams Office Machine Servicer Apprentice Relationship Specialty Start Date End Date Dara Tavera FNP [address] [place] [phone] PCP - General NURSE PRACTITIONER 10/13/18 documented as of this encounter
--- OUTSIDE RECORDS SUMMARY | 2025-06-14 20:46 | XMS_ITS | Encounter Summary ---
Author Organization [facility] Address [address] [place] [address] Care Team Providers Care Sales Counselor Name Role Phone Dara Tavera Primary Care Provider Encounter Details Date Type Department Care Team (Latest Contact Info) Description 01/21/2004 Outpatient Historical [facility] Ambulance [address] [place] [address] AMBULANCE, [facility] CONVULSIONS, OTHER (CMS/HCC) (Primary Dx) Social History Tobacco Use Types Packs/Day Years Used Date Smoking Tobacco: Never Assessed Comments Unknown Sex and Gender Information Value Date Recorded Sex Assigned at Not on file Legal Sex Female 5:22 AM COLLEGE OR UNIVERSITY FACULTY MEMBER Gender Identity Not on file Sexual Orientation Not on file documented as of this encounter Plan of Treatment Not on file documented as of this encounter Visit Diagnoses Diagnosis Other convulsions- Primary documented in this encounter Additional Health Concerns Infection Onset Date Last Indicated Resolved Time VRE Comment:Urine 10/30/13 Resolved 11/04/2013 11/04/2013 8 10:33 AM COLLEGE OR UNIVERSITY FACULTY MEMBER R/O COVID-19 12/25/2019 12/25/2019 12/26/2019 2:46 PM CDT R/O COVID-19 05/09/2020 05/09/2020 05/09/2020 12:1 7 PM COLLEGE OR UNIVERSITY FACULTY MEMBER documented as of this encounter Care Teams Sales Counselor Relationship Specialty Start Date End Date Dara Tavera FNP [address] [place] [address] PCP - General NURSE PRACTITIONER 10/13/18 documented as of this encounter
--- OUTSIDE RECORDS SUMMARY | 2025-06-14 20:46 | XMS_ITS | Encounter Summary ---
Author Organization [facility] Address [address] [place] [address] Care Team Providers Care Nutritional Chemist Name Role Phone Dara Tavera Primary Care Provider Encounter Details Date Type Department Care Team (Latest Contact Info) Description 01/25/2005 Outpatient [facility] Oral and Maxillo Surgery[address] [place] [address] Raleigh Bagley, PhD NO ADDRESS ON FILE Tooth eruption disturb (Primary Dx) Social History Tobacco Use Types Packs/Day Years Used Date Smoking Tobacco: Never Assessed Comments Unknown Sex and Gender Information Value Date Recorded Sex Assigned at Not on file Legal Sex Female 5:22 AM STATION CAPTAIN Gender Identity Not on file Sexual Orientation Not on file documented as of this encounter Plan of Treatment Not on file documented as of this encounter Visit Diagnoses Diagnosis Tooth eruption disturb- Primary Disturbances in tooth eruption documented in this encounter Additional Health Concerns Infection Onset Date Last Indicated Resolved Time VRE Comment:Urine 10/30/13 Resolved 11/04/2013 11/04/2013 8 10:33 AM STATION CAPTAIN R/O COVID-19 12/25/2019 12/25/2019 12/26/2019 2:46 PM CDT R/O COVID-19 05/09/2020 05/09/2020 05/09/2020 12:1 7 PM STATION CAPTAIN documented as of this encounter Care Teams Nutritional Chemist Relationship Specialty Start Date End Date Dara Tavera FNP [address] [place] [address] PCP - General NURSE PRACTITIONER 10/13/18 documented as of this encounter
--- OUTSIDE RECORDS SUMMARY | 2025-06-14 20:46 | XMS_ITS | Encounter Summary ---
Author Organization [facility] Address [address] [place] [address] Care Team Providers Care Tack Driller Name Role Phone Dara Tavera AMANDEEP Primary Care Provider Encounter Details Date Type Department Care Team (Latest Contact Info) Description 03/07/2005 Outpatient Historical [facility] Pain Management- [place] [address] [place] [address] Prasad Carpenter MD NO ADDRESS ON FILE Lumbosacral spondylosis (Primary Dx); LUMBAGO; LUMB/LUMBOSAC DISC DEGEN; OTHER BACK SYMPTOMS Social History Tobacco Use Types Packs/Day Years Used Date Smoking Tobacco: Never Assessed Comments Unknown Sex and Gender Information Value Date Recorded Sex Assigned at Not on file Legal Sex Female 5:22 AM GUIDE VISITOR Gender Identity Not on file Sexual Orientation [...] 10/30/13 Resolved 11/04/2013 11/04/2013 8 10:33 AM GUIDE VISITOR R/O COVID-19 12/25/2019 12/25/2019 12/26/2019 2:46 PM CDT R/O COVID-19 05/09/2020 05/09/2020 05/09/2020 12:1 7 PM GUIDE VISITOR documented as of this encounter Care Teams Tack Driller Relationship Specialty Start Date End Date Dara Tavera FNP [address] [place] [address] PCP - General NURSE PRACTITIONER 10/13/18 documented as of this encounter
--- OUTSIDE RECORDS SUMMARY | 2025-06-14 20:46 | XMS_ITS | Encounter Summary ---
Author Organization [facility] Address [address] [place] [address] Care Team Providers Care Payment Collector Name Role Phone Dara Tavera Primary Care Provider Encounter Details Date Type Department Care Team (Latest Contact Info) Description 07/24/2004 Outpatient Historical [facility] Ambulance [address] [place] [address] AMBULANCE, [facility] CONVULSIONS, OTHER (CMS/HCC) (Primary Dx) Social History Tobacco Use Types Packs/Day Years Used Date Smoking Tobacco: Never Assessed Comments Unknown Sex and Gender Information Value Date Recorded Sex Assigned at Not on file Legal Sex Female 5:22 AM DUAL RATE DEALER Gender Identity Not on file Sexual Orientation Not on file documented as of this encounter Plan of Treatment Not on file documented as of this encounter Visit Diagnoses Diagnosis Other convulsions- Primary documented in this encounter Additional Health Concerns Infection Onset Date Last Indicated Resolved Time VRE Comment:Urine 10/30/13 Resolved 11/04/2013 11/04/2013 8 10:33 AM DUAL RATE DEALER R/O COVID-19 12/25/2019 12/25/2019 12/26/2019 2:46 PM CDT R/O COVID-19 05/09/2020 05/09/2020 05/09/2020 12:1 7 PM DUAL RATE DEALER documented as of this encounter Care Teams Payment Collector Relationship Specialty Start Date End Date Dara Tavera FNP [address] [place] [phone] PCP - General NURSE PRACTITIONER 10/13/18 documented as of this encounter
--- OUTSIDE RECORDS SUMMARY | 2025-06-14 20:46 | XMS_ITS | Encounter Summary ---
Author Organization [facility] Address [address] [place] [address] Care Team Providers Care Poker Machine Attendant Name Role Phone Dara Tavera AMANDEEP Primary Care Provider [phone] Encounter Details Date Type Department Care Team (Latest Contact Info) Description 02/24/2005 Outpatient Historical [facility] Pain Management- [place] [address] [place] [address] Prasad Carpenter MD NO ADDRESS ON FILE OTHER BACK SYMPTOMS (Primary Dx); LUMB/LUMBOSAC DISC DEGEN; LUMBAGO; Lumbosacral spondylosis Social History Tobacco Use Types Packs/Day Years Used Date Smoking Tobacco: Never Assessed Comments Unknown Sex and Gender Information Value Date Recorded Sex Assigned at Not on file Legal Sex Female 5:22 AM NAVIGATION TEACHER Gender Identity Not on file Sexual [...] 10/30/13 Resolved 11/04/2013 11/04/2013 8 10:33 AM NAVIGATION TEACHER R/O COVID-19 12/25/2019 12/25/2019 12/26/2019 2:46 PM CDT R/O COVID-19 05/09/2020 05/09/2020 05/09/2020 12:1 7 PM NAVIGATION TEACHER documented as of this encounter Care Teams Poker Machine Attendant Relationship Specialty Start Date End Date Dara Tavera FNP [address] [place] [phone] PCP - General NURSE PRACTITIONER 10/13/18 documented as of this encounter
--- OUTSIDE RECORDS SUMMARY | 2025-06-14 20:46 | XMS_ITS | Encounter Summary ---
Author Organization [facility] Address [address] [place] [address] Care Team Providers Care Concrete Swimming Pool Installer Name Role Phone Dara Tavera Primary Care Provider [phone] Encounter Details Date Type Department Care Team (Late st Contact Info) Description 01/04/2004 Outpatient Historical [facility] Behavioral Clinical Services [address] [place] [address] Hood Kerr Jr., MD [address] [place] [address] Social History Tobacco Use Types Packs/Day Years Used Date Smoking Tobacco: Never Assessed Comments Unknown Sex and Gender Information Value Date Recorded Sex Assigned at Not on file Legal Sex Female 5:22 AM MACHINE FEEDER FLOORPERSON Gender Identity Not on file Sexual Orientation Not on file documented as of this encounter Plan of Treatment Not on file documented as of this encounter Visit Diagnoses Not on filedocumented in this encounter Additional Health Concerns Infection Onset Date Last Indicated Resolved Time VRE Comment:Urine 10/30/13 Resolved 11/04/2013 11/04/2013 8 10:33 AM MACHINE FEEDER FLOORPERSON R/O COVID-19 12/25/2019 12/25/2019 12/26/2019 2:46 PM CDT R/O COVID-19 05/09/2020 05/09/2020 05/09/2020 12:1 7 PM MACHINE FEEDER FLOORPERSON documented as of this encounter Care Teams Concrete Swimming Pool Installer Relationship Specialty Start Date End Date Dara Tavera FNP [address] [place] [phone] PCP - General NURSE PRACTITIONER 10/13/18 documented as of this encounter
--- OUTSIDE RECORDS SUMMARY | 2025-06-14 20:46 | XMS_ITS | Encounter Summary ---
Author Organization [facility] Address [address] [place] [address] Care Team Providers Care Purchasing And Fiscal Clerk Name Role Phone Dara Tavera Primary Care Provider Encounter Details Date Type Department Care Team (Latest Contact Info) Description 05/16/2005 Outpatient Historical [facility] Pain Management Procedures [address] [place] [address] Prasad Carpenter MD NO ADDRESS ON FILE DISORDERS OF SACRUM (Primary Dx) Social History Tobacco Use Types Packs/Day Years Used Date Smoking Tobacco: Never Assessed Comments Unknown Sex and Gender Information Value Date Recorded Sex Assigned at Not on file Legal Sex Female 5:22 AM TIE IN MACHINE OPERATOR Gender Identity Not on file Sexual Orientation Not on file documented as of this encounter Plan of Treatment Not on file documented as of this encounter Visit Diagnoses Diagnosis Disorders of sacrum- Primary documented in this encounter Additional Health Concerns Infection Onset Date Last Indicated Resolved Time VRE Comment:Urine 10/30/13 Resolved 11/04/2013 11/04/2013 8 10:33 AM TIE IN MACHINE OPERATOR R/O COVID-19 12/25/2019 12/25/2019 12/26/2019 2:46 PM CDT R/O COVID-19 05/09/2020 05/09/2020 05/09/2020 12:1 7 PM TIE IN MACHINE OPERATOR documented as of this encounter Care Teams Purchasing And Fiscal Clerk Relationship Specialty Start Date End Date Dara Tavera FNP [address] [place] [address] PCP - General NURSE PRACTITIONER 10/13/18 documented as of this encounter
--- OUTSIDE RECORDS SUMMARY | 2025-06-14 20:46 | XMS_ITS | Encounter Summary ---
Author Organization [facility] Address [address] [place] [address] Care Team Providers Care Rn Hemo Dialysis Name Role Phone Dara Tavera Primary Care Provider Encounter Details Date Type Department Care Team (Late st Contact Info) Description 02/22/2005 Outpatient Historical [facility] Medicine [place] [address] [facility] [address] [place] [address] Social History Tobacco Use Types Packs/Day Years Used Date Smoking Tobacco: Never Assessed Comments Unknown Sex and Gender Information Value Date Recorded Sex Assigned at Not on file Legal Sex Female 5:22 AM SSIS ETL DEVELOPER Gender Identity Not on file Sexual Orientation Not on file documented as of this encounter Plan of Treatment Not on file documented as of this encounter Visit Diagnoses Not on filedocumented in this encounter Additional Health Concerns Infection Onset Date Last Indicated Resolved Time VRE Comment:Urine 10/30/13 Resolved 11/04/2013 11/04/2013 8 10:33 AM SSIS ETL DEVELOPER R/O COVID-19 12/25/2019 12/25/2019 12/26/2019 2:46 PM CDT R/O COVID-19 05/09/2020 05/09/2020 05/09/2020 12:1 7 PM SSIS ETL DEVELOPER documented as of this encounter Care Teams Rn Hemo Dialysis Relationship Specialty Start Date End Date Dara Tavera FNP [address] [place] [phone] PCP - General NURSE PRACTITIONER 10/13/18 documented as of this encounter
--- OUTSIDE RECORDS SUMMARY | 2025-06-14 20:46 | XMS_ITS | Encounter Summary ---
Author Organization [facility] Address [address] [place] [address] Care Team Providers Care Director Of Therapy Services Name Role Phone Dara Tavera Primary Care Provider Encounter Details Date Type Department Care Team (Late st Contact Info) Description 05/30/2005 Outpatient Historical [facility] Pain Management Procedures [address] [place] [address] Prasad Carpenter MD NO ADDRESS ON FILE Social History Tobacco Use Types Packs/Day Years Used Date Smoking Tobacco: Never Assessed Comments Unknown Sex and Gender Information Value Date Recorded Sex Assigned at Not on file Legal Sex Female 5:22 AM ASSISTANT TO THE VICE PRESIDENT Gender Identity Not on file Sexual Orientation Not on file documented as of this encounter Plan of Treatment Not on file documented as of this encounter Visit Diagnoses Not on filedocumented in this encounter Additional Health Concerns Infection Onset Date Last Indicated Resolved Time VRE Comment:Urine 10/30/13 Resolved 11/04/2013 11/04/2013 8 10:33 AM ASSISTANT TO THE VICE PRESIDENT R/O COVID-19 12/25/2019 12/25/2019 12/26/2019 2:46 PM CDT R/O COVID-19 05/09/2020 05/09/2020 05/09/2020 12:1 7 PM ASSISTANT TO THE VICE PRESIDENT documented as of this encounter Care Teams Director Of Therapy Services Relationship Specialty Start Date End Date Dara Tavera FNP [address] [place] [address] PCP - General NURSE PRACTITIONER 10/13/18 documented as of this encounter
--- OUTSIDE RECORDS SUMMARY | 2025-06-14 20:46 | XMS_ITS | Encounter Summary ---
Author Organization [facility] Address [address] [facility] Attn: [place] [address] Care Team Providers Care Tank House Operator Name Role Phone Dara Tavera Primary Care Provider Encounter Details Date Type Department Care Team ([facility] Contact Info) Description 02/13/2003 Inpatient Historical Oniel Upton MD NO ADDRESS ON FILE ACUTE SCHIZOPHRENIA-CHR (CMS/HCC) (Primary Dx) Social History Tobacco Use Types Packs/Day Years Used Date Smoking Tobacco: Never Assessed Comments Unknown Sex and Gender Information Value Date Recorded Sex Assigned at Not on file Legal Sex Female 5:22 AM BLENDER/BRAZE APPLICATOR Gender Identity Not on file Sexual Orientation Not on file documented as of this encounter Plan of Treatment Not on file documented as of this encounter Visit Diagnoses Diagnosis Schizophreniform disorder, chronic condition (CMS/HCC)- Primary Schizophreniform disorder, chronic condition documented in this encounter Additional Health Concerns Infection Onset Date Last Indicated Resolved Time VRE Comment:Urine 10/30/13 Resolved 11/04/2013 11/04/2013 8 10:33 AM BLENDER/BRAZE APPLICATOR R/O COVID-19 12/25/2019 12/25/2019 12/26/2019 2:46 PM CDT R/O COVID-19 05/09/2020 05/09/2020 05/09/2020 12:1 7 PM BLENDER/BRAZE APPLICATOR documented as of this encounter Care Teams Tank House Operator Relationship Specialty Start Date End Date Dara Tavera FNP [address] [place] [phone] PCP - General NURSE PRACTITIONER 10/13/18 documented as of this encounter
--- OUTSIDE RECORDS SUMMARY | 2025-06-14 20:46 | XMS_ITS | Encounter Summary ---
Author Organization [facility] Address [address] [place] [address] Care Team Providers Care Paint Formulator Name Role Phone Dara Tavera Primary Care Provider Encounter Details Date Type Department Care Team (Latest Contact Info) Description 04/27/2003 Outpatient Historical [facility] Behavioral Clinical Services [address] [place] [address] Oniel Upton MD NO ADDRESS ON FILE SCHIZOAFFECTIVE-UNSP EC ([facility]/HCC) (Primary Dx) Social History Tobacco Use Types Packs/Day Years Used Date Smoking Tobacco: Never Assessed Comments Unknown Sex and Gender Information Value Date Recorded Sex Assigned at Not on file Legal Sex Female 5:22 AM LINE MOVER Gender Identity Not on file Sexual Orientation Not on file documented as of this encounter Plan of Treatment Not on file documented as of this encounter Visit Diagnoses Diagnosis Schizoaffective disorder, unspecified condition ([facility]/HCC)- Primary Schizoaffective disorder, unspecified condition documented in this encounter Additional Health Concerns Infection Onset Date Last Indicated Resolved Time VRE Comment:Urine 10/30/13 Resolved 11/04/2013 11/04/2013 8 10:33 AM LINE MOVER R/O COVID-19 12/25/2019 12/25/2019 12/26/2019 2:46 PM CDT R/O COVID-19 05/09/2020 05/09/2020 05/09/2020 12:1 7 PM LINE MOVER documented as of this encounter Care Teams Paint Formulator Relationship Specialty Start Date End Date Dara Tavera FNP [address] [place] [address] PCP - General NURSE PRACTITIONER 10/13/18 documented as of this encounter
--- OUTSIDE RECORDS SUMMARY | 2025-06-14 20:46 | XMS_ITS | Encounter Summary ---
Author Organization [facility] Address [address] [place] [address] Care Team Providers Care Milk Driver Name Role Phone Dara Tavera Primary Care Provider Encounter Details Date Type Department Care Team (Late st Contact Info) Description 05/30/2005 Outpatient [facility] Pain Management- [place] [address] [place] [address] Social History Tobacco Use Types Packs/Day Years Used Date Smoking Tobacco: Never Assessed Comments Unknown Sex and Gender Information Value Date Recorded Sex Assigned at Not on file Legal Sex Female 5:22 AM CONVICT GUARD Gender Identity Not on file Sexual Orientation Not on file documented as of this encounter Plan of Treatment Not on file documented as of this encounter Visit Diagnoses Not on filedocumented in this encounter Additional Health Concerns Infection Onset Date Last Indicated Resolved Time VRE Comment:Urine 10/30/13 Resolved 11/04/2013 11/04/2013 8 10:33 AM CONVICT GUARD R/O COVID-19 12/25/2019 12/25/2019 12/26/2019 2:46 PM CDT R/O COVID-19 05/09/2020 05/09/2020 05/09/2020 12:1 7 PM CONVICT GUARD documented as of this encounter Care Teams Milk Driver Relationship Specialty Start Date End Date Dara Tavera FNP [address] [place] [phone] PCP - General NURSE PRACTITIONER 10/13/18 documented as of this encounter
--- OUTSIDE RECORDS SUMMARY | 2025-06-14 20:46 | XMS_ITS | Encounter Summary ---
Author Organization [facility] Address [address] [place] [address] Care Team Providers Care Deep Fat Cook Fry Name Role Phone Dara Tavera AMANDEEP Primary Care Provider Encounter Details Date Type Department Care Team (Latest Contact Info) Description 12/04/2003 Outpatient Historical [facility] Behavioral Clinical Services [address] [place] [address] Hood Kerr Jr., MD [address] [place] [address] SCHIZOAFFECTIVE-UNSP EC (CMS/HCC) (Primary Dx) Social History Tobacco Use Types Packs/Day Years Used Date Smoking Tobacco: Never Assessed Comments Unknown Sex and Gender Information Value Date Recorded Sex Assigned at Not on file Legal Sex Female 5:22 AM ENTRY ENGINEER Gender Identity Not on file Sexual Orientation Not on file documented as of this encounter Plan of Treatment Not on file documented as of this encounter Visit Diagnoses Diagnosis Schizoaffective disorder, unspecified condition (CMS/HCC)- Primary Schizoaffective disorder, unspecified condition documented in this encounter Additional Health Concerns Infection Onset Date Last Indicated Resolved Time VRE Comment:Urine 10/30/13 Resolved 11/04/2013 11/04/2013 8 10:33 AM ENTRY ENGINEER R/O COVID-19 12/25/2019 12/25/2019 12/26/2019 2:46 PM CDT R/O COVID-19 05/09/2020 05/09/2020 05/09/2020 12:1 7 PM ENTRY ENGINEER documented as of this encounter Care Teams Deep Fat Cook Fry Relationship Specialty Start Date End Date Dara Tavera FNP [address] [place] [address] PCP - General NURSE PRACTITIONER 10/13/18 documented as of this encounter
--- OUTSIDE RECORDS SUMMARY | 2025-06-14 20:46 | XMS_ITS | Encounter Summary ---
Author Organization [facility] Address [address] [place] [address] Care Team Providers Care Pocket Creaser Name Role Phone Dara Tavera Primary Care Provider Encounter Details Date Type Department Care Team (Latest Contact Info) Description 08/15/2004 Outpatient Historical [facility] [address] [place] [address] AMBULANCE, [facility] SYNCOPE AND COLLAPSE (Primary Dx) Social History Tobacco Use Types Packs/Day Years Used Date Smoking Tobacco: Never Assessed Comments Unknown Sex and Gender Information Value Date Recorded Sex Assigned at Not on file Legal Sex Female 5:22 AM RECTIFICATION PRINTER Gender Identity Not on file Sexual Orientation Not on file documented as of this encounter Plan of Treatment Not on file documented as of this encounter Visit Diagnoses Diagnosis Syncope and collapse- Primary documented in this encounter Additional Health Concerns Infection Onset Date Last Indicated Resolved Time VRE Comment:Urine 10/30/13 Resolved 11/04/2013 11/04/2013 8 10:33 AM RECTIFICATION PRINTER R/O COVID-19 12/25/2019 12/25/2019 12/26/2019 2:46 PM CDT R/O COVID-19 05/09/2020 05/09/2020 05/09/2020 12:1 7 PM RECTIFICATION PRINTER documented as of this encounter Care Teams Pocket Creaser Relationship Specialty Start Date End Date Dara Tavera FNP [address] [place] [phone] PCP - General NURSE PRACTITIONER 10/13/18 documented as of this encounter
--- OUTSIDE RECORDS SUMMARY | 2025-06-14 20:46 | XMS_ITS | Encounter Summary ---
Author Organization [facility] Address [address] [place] [address] Care Team Providers Care Commissioning Engineer Name Role Phone Dara Tavera [facility] Primary Care Provider Encounter Details Date Type Department Care Team (Latest Contact Info) Description 04/28/2005 Outpatient Historical [facility] Pain Management- [place] [address] [place] [address] Krissy Pickard FNP [address] [place] [address] [address] [place] [address] LUMBAGO (Primary Dx); LUMBOSACRAL NEURITIS NOS; Enthesopathy of hip Social History Tobacco Use Types Packs/Day Years Used Date Smoking Tobacco: Never Assessed Comments Unknown Sex and Gender Information Value Date Recorded Sex Assigned at Not on file Legal Sex Female 5:22 AM OFFICE REP Gender Identity Not on file Sexual [...] 10/30/13 Resolved 11/04/2013 11/04/2013 8 10:33 AM OFFICE REP R/O COVID-19 12/25/2019 12/25/2019 12/26/2019 2:46 PM CDT R/O COVID-05/09/2020 05/09/2020 05/09/2020 12:1 7 PM OFFICE REP documented as of this encounter Care Teams Commissioning Engineer Relationship Specialty Start Date End Date Dara Tavera FNP [address] [place] [address] PCP - General NURSE PRACTITIONER 10/13/18 documented as of this encounter
--- OUTSIDE RECORDS SUMMARY | 2025-06-14 20:46 | XMS_ITS | Encounter Summary ---
Author Organization [facility] Address [address] [place] [address] Care Team Providers Care Dye Range Operator Cloth Name Role Phone Dara Tavera Primary Care Provider Encounter Details Date Type Department Care Team (Latest Contact Info) Description 05/16/2005 [facility]patient [facility] [address] [place] [address] Prasad Carpenter MD NO ADDRESS ON FILE DISORDERS OF SACRUM (Primary Dx); LUMBAGO Social History Tobacco Use Types Packs/Day Years Used Date Smoking Tobacco: Never Assessed Comments Unknown Sex and Gender Information Value Date Recorded Sex Assigned at Not on file Legal Sex Female 5:22 AM INFORMATION OPERATOR Gender Identity Not on file Sexual Orientation Not on file documented as of this encounter Plan of Treatment Not on file documented as of this encounter Visit Diagnoses Diagnosis Disorders of sacrum- Primary Lumbago documented in this encounter Additional Health Concerns Infection Onset Date Last Indicated Resolved Time VRE Comment:Urine 10/30/13 Resolved 11/04/2013 11/04/2013 8 10:33 AM INFORMATION OPERATOR R/O COVID-19 12/25/2019 12/25/2019 12/26/2019 2:46 PM CDT R/O COVID-19 05/09/2020 05/09/2020 05/09/2020 12:1 7 PM INFORMATION OPERATOR documented as of this encounter Care Teams Dye Range Operator Cloth Relationship Specialty Start Date End Date Dara Tavera FNP [address] [place] [address] PCP - General NURSE PRACTITIONER 10/13/18 documented as of this encounter
--- OUTSIDE RECORDS SUMMARY | 2025-06-14 20:46 | XMS_ITS | Encounter Summary ---
Author Organization [facility] Address [address] [place] [address] Care Team Providers Care Adhesion Tester Name Role Phone Dara Tavera AMANDEEP Primary Care Provider Encounter Details Date Type Department Care Team (Latest Contact Info) Description 11/04/2002 Outpatient Historical [facility] [place] [address] 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
--- OUTSIDE RECORDS SUMMARY | 2025-06-14 20:46 | XMS_ITS | Encounter Summary ---
Author Organization [facility] Address [address] [place] [address] Care Team Providers Care Swimming Coach Name Role Phone Dara Tavera Primary Care Provider Encounter Details Date Type Department Care Team (Latest Contact Info) Description 11/25/2004 Outpatient Historical [facility] [address] [place] [address] AMBULANCE, [facility] NONPSYCHOTIC MENTAL DISORDER NOS (Primary Dx) Social History Tobacco Use Types Packs/Day Years Used Date Smoking Tobacco: Never Assessed Comments Unknown Sex and Gender Information Value Date Recorded Sex Assigned at Not on file Legal Sex Female 5:22 AM BEEF RIBBER Gender Identity Not on file Sexual Orientation Not on file documented as of this encounter Plan of Treatment Not on file documented as of this encounter Visit Diagnoses Diagnosis Unspecified nonpsychotic mental disorder- Primary documented in this encounter Additional Health Concerns Infection Onset Date Last Indicated Resolved Time VRE Comment:Urine 10/30/13 Resolved 11/04/2013 11/04/2013 8 10:33 AM BEEF RIBBER R/O COVID-19 12/25/2019 12/25/2019 12/26/2019 2:46 PM CDT R/O COVID-19 05/09/2020 05/09/2020 05/09/2020 12:1 7 PM BEEF RIBBER documented as of this encounter Care Teams Swimming Coach Relationship Specialty Start Date End Date Dara Tavera FNP [address] [place] [address] PCP - General NURSE PRACTITIONER 10/13/18 documented as of this encounter
--- OUTSIDE RECORDS SUMMARY | 2025-06-14 20:46 | XMS_ITS | Encounter Summary ---
Author Organization [facility] Address [address] [place] [address] Care Team Providers Care Apns Name Role Phone Dara Tavera Primary Care [...] on file Legal Sex Female 5:22 AM GROCERY WORKER Gender Identity Not on file Sexual Orientation Not on file documented as of this encounter Plan of Treatment Not on file documented as of this encounter Visit Diagnoses Not on filedocumented in this encounter Additional Health Concerns Infection Onset Date Last Indicated Resolved Time VRE Comment:Urine 10/30/13 Resolved 11/04/2013 11/04/2013 8 10:33 AM GROCERY WORKER R/O COVID-19 12/25/2019 12/25/2019 12/26/2019 2:46 PM CDT R/O COVID-19 05/09/2020 05/09/2020 05/09/2020 12:1 7 PM GROCERY WORKER documented as of this encounter Care Teams Apns Relationship Specialty Start Date End Date Dara Tavera FNP [address] [place] [phone] PCP - General NURSE PRACTITIONER 10/13/18 documented as of this encounter
--- OUTSIDE RECORDS SUMMARY | 2025-06-14 20:46 | XMS_ITS | Encounter Summary ---
Author Organization [facility] Address [address] [place] [address] Care Team Providers Care Financial Services Counselor Name Role Phone Dara Tavera Primary Care Provider Encounter Details Date Type Department Care Team (Latest Contact Info) Description 02/24/2005 Outpatient Historical [facility] [address] [place] [address] [facility] [address] [place] [address] Prasad Carpenter MD NO ADDRESS ON FILE LUMB/LUMBOSAC DISC DEGEN (Primary Dx) Social History Tobacco Use Types Packs/Day Years Used Date Smoking Tobacco: Never Assessed Comments Unknown Sex and Gender Information Value Date Recorded Sex Assigned at Not on file Legal Sex Female 5:22 AM UROGYNAECOLOGIST Gender Identity Not on file Sexual Orientation Not on file documented as of this encounter Plan of Treatment Not on file documented as of this encounter Visit Diagnoses Diagnosis Degeneration of lumbar or lumbosacral intervertebral disc- Primary documented in this encounter Additional Health Concerns Infection Onset Date Last Indicated Resolved Time VRE Comment:Urine 10/30/13 Resolved 11/04/2013 11/04/2013 10:33 AM UROGYNAECOLOGIST R/O COVID-19 12/25/2019 12/25/2019 12/26/2019 2:46 PM CDT R/O COVID-19 05/09/2020 05/09/2020 05/09/2020 12:1 7 PM UROGYNAECOLOGIST documented as of this encounter Care Teams Financial Services Counselor Relationship Specialty Start Date End Date Dara Tavera FNP [address] [place] [address] PCP - General NURSE PRACTITIONER 10/13/18 documented as of this encounter
--- OUTSIDE RECORDS SUMMARY | 2025-06-14 20:46 | XMS_ITS | Encounter Summary ---
Author Organization [facility] Address [address] [place] [address] Care Team Providers Care Electrocardiograph Operator Name Role Phone Dara Tavera Primary Care Provider Encounter Details Date Type Department Care Team (Latest Contact Info) Description 02/24/2003 Outpatient Historical [facility] Behavioral Clinical Services [address] [place] [address] Oniel Upton MD NO ADDRESS ON FILE SCHIZOAFFECTIVE-UNSP EC ([facility]) (Primary Dx) Social History Tobacco Use Types Packs/Day Years Used Date Smoking Tobacco: Never Assessed Comments Unknown Sex and Gender Information Value Date Recorded Sex Assigned at Not on file Legal Sex Female 5:22 AM CLERK OPERATOR Gender Identity Not on file Sexual Orientation Not on file documented as of this encounter Plan of Treatment Not on file documented as of this encounter Visit Diagnoses Diagnosis Schizoaffective disorder, unspecified condition ([facility]/HCC)- Primary Schizoaffective disorder, unspecified condition documented in this encounter Additional Health Concerns Infection Onset Date Last Indicated Resolved Time VRE Comment:Urine 10/30/13 Resolved 11/04/2013 11/04/2013 8 10:33 AM CLERK OPERATOR R/O COVID-19 12/25/2019 12/25/2019 12/26/2019 2:46 PM CDT R/O COVID-19 05/09/2020 05/09/2020 05/09/2020 12:1 7 PM CLERK OPERATOR documented as of this encounter Care Teams Electrocardiograph Operator Relationship Specialty Start Date End Date Dara Tavera FNP [address] [place] [phone] PCP - General NURSE PRACTITIONER 10/13/18 documented as of this encounter
--- OUTSIDE RECORDS SUMMARY | 2025-06-14 20:46 | XMS_ITS | Encounter Summary ---
Author Organization [facility] Address [address] [place] [address] Care Team Providers Care Flask Handler Name Role Phone Dara Tavera Primary Care Provider Encounter Details Date Type Department Care Team (Latest Contact Info) Description 12/07/2003 Outpatient Historical [facility] SCHIZOPHRENIA NOS-UNSPEC (CMS/HCC) (Primary Dx) Social History Tobacco Use Types Packs/Day Years Used Date Smoking Tobacco: Never Assessed Comments Unknown Sex and Gender Information Value Date Recorded Sex Assigned at Not on file Legal Sex Female 5:22 AM BIOMEDICAL SERVICE ENGINEER Gender Identity Not on file Sexual Orientation Not on file documented as of this encounter Plan of Treatment Not on file documented as of this encounter Visit Diagnoses Diagnosis Unspecified schizophrenia, unspecified condition (CMS/HCC)- Primary Unspecified schizophrenia, unspecified condition documented in this encounter Additional Health Concerns Infection Onset Date Last Indicated Resolved Time VRE Comment:Urine 10/30/13 Resolved 11/04/2013 11/04/2013 8 10:33 AM BIOMEDICAL SERVICE ENGINEER R/O COVID-19 12/25/2019 12/25/2019 12/26/2019 2:46 PM CDT R/O COVID-19 05/09/2020 05/09/2020 05/09/2020 12:1 7 PM BIOMEDICAL SERVICE ENGINEER documented as of this encounter Care Teams Flask Handler Relationship Specialty Start Date End Date Dara Tavera FNP [address] [place] [phone] PCP - General NURSE PRACTITIONER 10/13/18 documented as of this encounter
--- OUTSIDE RECORDS SUMMARY | 2025-06-14 20:46 | XMS_ITS | Encounter Summary ---
Author Organization [facility] Address [address] [place] [address] Care Team Providers Care Sonar Subsystem Equipment Operator Name Role Phone Dara Tavera Primary Care Provider Encounter Details Date Type Department Care Team (Latest Contact Info) Description 05/20/2004 Outpatient Historical [facility] [address] [place] [address] AMBULANCE, [facility] CONVULSIONS, OTHER (CMS/HCC) (Primary Dx) Social History Tobacco Use Types Packs/Day Years Used Date Smoking Tobacco: Never Assessed Comments Unknown Sex and Gender Information Value Date Recorded Sex Assigned at Not on file Legal Sex Female 5:22 AM BRINE TANK OPERATOR Gender Identity Not on file Sexual Orientation Not on file documented as of this encounter Plan of Treatment Not on file documented as of this encounter Visit Diagnoses Diagnosis Other convulsions- Primary documented in this encounter Additional Health Concerns Infection Onset Date Last Indicated Resolved Time VRE Comment:Urine 10/30/13 Resolved 11/04/2013 11/04/2013 8 10:33 AM BRINE TANK OPERATOR R/O COVID-19 12/25/2019 12/25/2019 12/26/2019 2:46 PM CDT R/O COVID-19 05/09/2020 05/09/2020 05/09/2020 12:1 7 PM BRINE TANK OPERATOR documented as of this encounter Care Teams Sonar Subsystem Equipment Operator Relationship Specialty Start Date End Date Dara Tavera FNP [address] [place] [phone] PCP - General NURSE PRACTITIONER 10/13/18 documented as of this encounter
--- OUTSIDE RECORDS SUMMARY | 2025-06-14 20:46 | XMS_ITS | Encounter Summary ---
Author Organization [facility] Address [address] [place] [address] Care Team Providers Care Assistant Sales Director Name Role Phone Dara Tavera Primary Care Provider Encounter Details Date Type Department Care Team (Latest Contact Info) Description 03/27/2003 Outpatient Historical [facility] Behavioral Clinical Services [address] [place] [address] Oniel Upton MD NO ADDRESS ON FILE SCHIZOAFFECTIVE-UNSP EC ([facility]) (Primary Dx) Social History Tobacco Use Types Packs/Day Years Used Date Smoking Tobacco: Never Assessed Comments Unknown Sex and Gender Information Value Date Recorded Sex Assigned at Not on file Legal Sex Female 5:22 AM PARTY PLAN SALES AGENT Gender Identity Not on file Sexual Orientation Not on file documented as of this encounter Plan of Treatment Not on file documented as of this encounter Visit Diagnoses Diagnosis Schizoaffective disorder, unspecified condition ([facility]/HCC)- Primary Schizoaffective disorder, unspecified condition documented in this encounter Additional Health Concerns Infection Onset Date Last Indicated Resolved Time VRE Comment:Urine 10/30/13 Resolved 11/04/2013 11/04/2013 8 10:33 AM PARTY PLAN SALES AGENT R/O COVID-19 12/25/2019 12/25/2019 12/26/2019 2:46 PM CDT R/O COVID-19 05/09/2020 05/09/2020 05/09/2020 12:1 7 PM PARTY PLAN SALES AGENT documented as of this encounter Care Teams Assistant Sales Director Relationship Specialty Start Date End Date Dara Tavera FNP [address] [place] [address] PCP - General NURSE PRACTITIONER 10/13/18 documented as of this encounter
--- OUTSIDE RECORDS SUMMARY | 2025-06-14 20:46 | XMS_ITS | Encounter Summary ---
Author Organization [facility] Address [address] [place] [address] Care Team Providers Care Grave Cleaner Name Role Phone Dara Tavera Primary Care Provider Encounter Details Date Type Department Care Team (Latest Contact Info) Description 03/21/2005 Outpatient Historical [facility] [address] [place] [address] AMBULANCE, [facility] DEPRESSIVE DISORDER NEC (Primary Dx) Social History Tobacco Use Types Packs/Day Years Used Date Smoking Tobacco: Never Assessed Comments Unknown Sex and Gender Information Value Date Recorded Sex Assigned at Not on file Legal Sex Female 5:22 AM LABORATORY DEVELOPMENT TECHNICIAN Gender Identity Not on file Sexual Orientation Not on file documented as of this encounter Plan of Treatment Not on file documented as of this encounter Visit Diagnoses Diagnosis Depressive disorder, not elsewhere classified- Primary documented in this encounter Additional Health Concerns Infection Onset Date Last Indicated Resolved Time VRE Comment:Urine 10/30/13 Resolved 11/04/2013 11/04/2013 8 10:33 AM LABORATORY DEVELOPMENT TECHNICIAN R/O COVID-19 12/25/2019 12/25/2019 12/26/2019 2:46 PM CDT R/O COVID-19 05/09/2020 05/09/2020 05/09/2020 12:1 7 PM LABORATORY DEVELOPMENT TECHNICIAN documented as of this encounter Care Teams Grave Cleaner Relationship Specialty Start Date End Date Dara Tavera FNP [address] [place] [address] PCP - General NURSE PRACTITIONER 4/27/19 documented as of this encounter
--- OUTSIDE RECORDS SUMMARY | 2025-06-14 20:46 | XMS_ITS | Encounter Summary ---
Author Organization [facility] Address [address] [place] [address] Care Team Providers Care Criminal Justice Faculty Name Role Phone Dara Tavera Primary Care Provider Encounter Details Date Type Department Care Team (Latest Contact Info) Description 12/01/2004 Outpatient Historical [facility] Medicine [place] [address] [facility] [address] [place] [address] Faiza Petersen MD NO ADDRESS ON FILE FEM PELV INFLAM DIS NOS (Primary Dx); ABDOMINAL PAIN UNSPEC SITE Social History Tobacco Use Types Packs/Day Years Used Date Smoking Tobacco: Never Assessed Comments Unknown Sex and Gender Information Value Date Recorded Sex Assigned at Not on file Legal Sex Female 5:22 AM LINE RUNNER Gender Identity Not on file Sexual Orientation [...] Resolved 11/04/2013 11/04/2013 8 10:33 AM LINE RUNNER R/O COVID-19 12/25/2019 12/25/2019 12/26/2019 2:46 PM CDT R/O COVID-19 05/09/2020 05/09/2020 05/09/2020 12:1 7 PM LINE RUNNER documented as of this encounter Care Teams Criminal Justice Faculty Relationship Specialty Start Date End Date Dara Tavera FNP [address] [place] [address] PCP - General NURSE PRACTITIONER 10/13/18 documented as of this encounter
--- OUTSIDE RECORDS SUMMARY | 2025-06-14 20:46 | XMS_ITS | Encounter Summary ---
Author Organization [facility] Address [address] [place] [address] Care Team Providers Care Hat Braider Name Role Phone Ayse Dara BERNSTEIN Primary Care Provider Encounter Details Date Type Department Care Team (Latest Contact Info) Description 12/08/2003 Inpatient Historical [facility] [address] [place] [address] Robel Samuel MD [address] [place] [address] DRUG DEPRESSIVE SYNDROME (CMS/HCC) (Primary Dx) Social History Tobacco Use Types Packs/Day Years Used Date Smoking Tobacco: Never Assessed Comments Unknown Sex and Gender Information Value Date Recorded Sex Assigned at Not on file Legal Sex Female 5:22 AM TANK PUMPER PANELBOARD Gender Identity Not on file Sexual Orientation Not on file documented as of this encounter Plan of Treatment Not on file documented as of this encounter Visit Diagnoses Diagnosis 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/HCC)- Primary Drug-induced mood disorder documented in this encounter Additional Health Concerns Infection Onset Date Last Indicated Resolved Time VRE Comment:Urine 10/30/13 Resolved 11/04/2013 11/04/2013 8 10:33 AM TANK PUMPER PANELBOARD R/O COVID-19 12/25/2019 12/25/2019 12/26/2019 2:46 PM CDT R/O COVID-19 05/09/2020 05/09/2020 05/09/2020 12:1 7 PM TANK PUMPER PANELBOARD documented as of this encounter Care Teams Hat Braider Relationship Specialty Start Date End Date Dara Tavera FNP [address] [place] [phone] PCP - General NURSE PRACTITIONER 10/13/18 documented as of this encounter
--- OUTSIDE RECORDS SUMMARY | 2025-06-14 20:46 | XMS_ITS | Encounter Summary ---
Author Organization [facility] Address [address] [place] [address] Care Team Providers Care Molder Bench Name Role Phone Dara Tavera Primary Care Provider Encounter Details Date Type Department Care Team (Late st Contact Info) Description 12/05/2003 Outpatient [facility] Behavioral Clinical Services [address] [place] [address] Hood Kerr Jr., MD [address] [place] [address] Social History Tobacco Use Types Packs/Day Years Used Date Smoking Tobacco: Never Assessed Comments Unknown Sex and Gender Information Value Date Recorded Sex Assigned at Not on file Legal Sex Female 5:22 AM SPRING FITTER HELPER Gender Identity Not on file Sexual Orientation Not on file documented as of this encounter Plan of Treatment Not on file documented as of this encounter Visit Diagnoses Not on filedocumented in this encounter Additional Health Concerns Infection Onset Date Last Indicated Resolved Time VRE Comment:Urine 10/30/13 Resolved 11/04/2013 11/04/2013 8 10:33 AM SPRING FITTER HELPER R/O COVID-19 12/25/2019 12/25/2019 12/26/2019 2:46 PM CDT R/O COVID-19 05/09/2020 05/09/2020 05/09/2020 12:1 7 PM SPRING FITTER HELPER documented as of this encounter Care Teams Molder Bench Relationship Specialty Start Date End Date Dara Tavera FNP [address] [place] [phone] PCP - General NURSE PRACTITIONER 10/13/18 documented as of this encounter
--- OUTSIDE RECORDS SUMMARY | 2025-06-14 20:46 | XMS_ITS | Encounter Summary ---
Author Organization [facility] Address [address] [place] [address] Care Team Providers Care Retail Stocker Name Role Phone Dara Tavera AMANDEEP Primary Care Provider Encounter Details Date Type Department Care Team (Latest Contact Info) Description 02/10/2005 Outpatient Historical [facility] Medicine [place] [address] [facility] [place] [address] [place] [address] Faiza Petersen MD NO ADDRESS ON FILE ALLERGIC RHINITIS NOS (Primary Dx); HEADACHE; AFTERCARE SKILLED NURSING USE MEDICATN; CONVULSIONS NEC ([facility]) Social History Tobacco Use Types Packs/Day Years Used Date Smoking Tobacco: Never Assessed Comments Unknown Sex and Gender Information Value Date Recorded Sex Assigned at Not on file Legal Sex Female 5:22 AM COMMISSIONER OF RELOCATION SERVICES Gender Identity Not on file Sexual [...] 10/30/13 Resolved 11/04/2013 11/04/2013 8 10:33 AM COMMISSIONER OF RELOCATION SERVICES R/O COVID-19 12/25/2019 12/25/2019 12/26/2019 2:46 PM CDT R/O COVID-19 05/09/2020 05/09/2020 05/09/2020 12:1 7 PM COMMISSIONER OF RELOCATION SERVICES documented as of this encounter Care Teams Retail Stocker Relationship Specialty Start Date End Date Dara Tavera FNP [address] [place] [phone] PCP - General NURSE PRACTITIONER 10/13/18 documented as of this encounter
--- OUTSIDE RECORDS SUMMARY | 2025-06-14 20:46 | XMS_ITS | Encounter Summary ---
Author Organization [facility] Address [address] [place] [address] Care Team Providers Care Macaroni Press Operator Name Role Phone Dara Tavera Primary Care Provider [phone] Encounter Details Date Type Department Care Team (Late st Contact Info) Description 12/10/2004 Outpatient Historical [facility] Faiza Petersen MD NO ADDRESS ON FILE Social History Tobacco Use Types Packs/Day Years Used Date Smoking Tobacco: Never Assessed Comments Unknown Sex and Gender Information Value Date Recorded Sex Assigned at Not on file Legal Sex Female 5:22 AM BELLHOP SERVICE CAPTAIN Gender Identity Not on file Sexual Orientation Not on file documented as of this encounter Plan of Treatment Not on file documented as of this encounter Visit Diagnoses Not on filedocumented in this encounter Additional Health Concerns Infection Onset Date Last Indicated Resolved Time VRE Comment:Urine 10/30/13 Resolved 11/04/2013 11/04/2013 8 10:33 AM BELLHOP SERVICE CAPTAIN R/O COVID-19 12/25/2019 12/25/2019 12/26/2019 2:46 PM CDT R/O COVID-19 05/09/2020 05/09/2020 05/09/2020 12:1 7 PM BELLHOP SERVICE CAPTAIN documented as of this encounter Care Teams Macaroni Press Operator Relationship Specialty Start Date End Date Dara Tavera FNP [address] [place] [phone] PCP - General NURSE PRACTITIONER 10/13/18 documented as of this encounter
--- OUTSIDE RECORDS SUMMARY | 2025-06-14 20:46 | XMS_ITS | Encounter Summary ---
Author Organization [facility] Address [address] [place] [address] Care Team Providers Care Machine Spring Former Name Role Phone Dara Tavera Primary Care Provider Encounter Details Date Type Department Care Team (Latest Contact Info) Description 05/12/2004 Outpatient Historical [facility] Ambulance [address] [place] [address] AMBULANCE, [facility] CHEST PAIN NOS (Primary Dx) Social History Tobacco Use Types Packs/Day Years Used Date Smoking Tobacco: Never Assessed Comments Unknown Sex and Gender Information Value Date Recorded Sex Assigned at Not on file Legal Sex Female 5:22 AM FILTER SCREEN CLEANER Gender Identity Not on file Sexual Orientation Not on file documented as of this encounter Plan of Treatment Not on file documented as of this encounter Visit Diagnoses Diagnosis Chest pain, unspecified- Primary documented in this encounter Additional Health Concerns Infection Onset Date Last Indicated Resolved Time VRE Comment:Urine 10/30/13 Resolved 11/04/2013 11/04/2013 8 10:33 AM FILTER SCREEN CLEANER R/O COVID-19 12/25/2019 12/25/2019 12/26/2019 2:46 PM CDT R/O COVID-19 05/09/2020 05/09/2020 05/09/2020 12:1 7 PM FILTER SCREEN CLEANER documented as of this encounter Care Teams Machine Spring Former Relationship Specialty Start Date End Date Dara Tavera FNP [address] [place] [address] PCP - General NURSE PRACTITIONER 10/13/18 documented as of this encounter
--- OUTSIDE RECORDS SUMMARY | 2025-06-14 20:46 | XMS_ITS | Encounter Summary ---
Author Organization [facility] Address [address] [place] [address] Care Team Providers Care Industrial Truck Operator Name Role Phone Dara Tavera Primary Care Provider Encounter Details Date Type Department Care Team (Latest Contact Info) Description 07/24/2004 Outpatient Historical [facility] [address] [place] [address] AMBULANCE, [facility] OTHER ALTERATION OF CONSCIOUSNESS (Primary Dx) Social History Tobacco Use Types Packs/Day Years Used Date Smoking Tobacco: Never Assessed Comments Unknown Sex and Gender Information Value Date Recorded Sex Assigned at Not on file Legal Sex Female 5:22 AM MOTION PICTURE NARRATOR Gender Identity Not on file Sexual Orientation Not on file documented as of this encounter Plan of Treatment Not on file documented as of this encounter Visit Diagnoses Diagnosis Other alteration of consciousness- Primary documented in this encounter Additional Health Concerns Infection Onset Date Last Indicated Resolved Time VRE Comment:Urine 10/30/13 Resolved 11/04/2013 11/04/2013 8 10:33 AM MOTION PICTURE NARRATOR R/O COVID-19 12/25/2019 12/25/2019 12/26/2019 2:46 PM CDT R/O COVID-19 05/09/2020 05/09/2020 05/09/2020 12:1 7 PM MOTION PICTURE NARRATOR documented as of this encounter Care Teams Industrial Truck Operator Relationship Specialty Start Date End Date Dara Taevra FNP [address] [place] [address] PCP - General NURSE PRACTITIONER 10/13/18 documented as of this encounter
--- OUTSIDE RECORDS SUMMARY | 2025-06-14 20:46 | XMS_ITS | Encounter Summary ---
Author Organization [facility] Address [address] [place] [address] Care Team Providers Care Real Estate Clerk Name Role Phone Dara Tavera Primary Care Provider Encounter Details Date Type Department Care Team (Latest Contact Info) Description 10/22/2004 Outpatient Historical [facility] Medicine [place] [address] [facility] [address] [place] [address] Ryan Don NP NO ADDRESS ON FILE LUMP OR MASS IN BREAST (Primary Dx) Social History Tobacco Use Types Packs/Day Years Used Date Smoking Tobacco: Never Assessed Comments Unknown Sex and Gender Information Value Date Recorded Sex Assigned at Not on file Legal Sex Female 5:22 AM EVENTS ADMINISTRATIVE ASSISTANT Gender Identity Not on file Sexual Orientation Not on file documented as of this encounter Plan of Treatment Not on file documented as of this encounter Visit Diagnoses Diagnosis Lump or mass in breast- Primary documented in this encounter Additional Health Concerns Infection Onset Date Last Indicated Resolved Time VRE Comment:Urine 10/30/13 Resolved 11/04/2013 11/04/2013 8 10:33 AM EVENTS ADMINISTRATIVE ASSISTANT R/O COVID-19 12/25/2019 12/25/2019 12/26/2019 2:46 PM CDT R/O COVID-19 05/09/2020 05/09/2020 05/09/2020 12:1 7 PM EVENTS ADMINISTRATIVE ASSISTANT documented as of this encounter Care Teams Real Estate Clerk Relationship Specialty Start Date End Date Dara Tavera FNP [address] [place] [phone] PCP - General NURSE PRACTITIONER 10/13/18 documented as of this encounter
--- OUTSIDE RECORDS SUMMARY | 2025-06-14 20:46 | XMS_ITS | Encounter Summary ---
Author Organization [facility] Address [address] [place] [address] Care Team Providers Care Keg Varnisher Name Role Phone Dara Tavera Primary Care Provider Encounter Details Date Type Department Care Team (Latest Contact Info) Description 01/14/2005 Outpatient Historical [facility] [address] [place] [address] Faiza Petersen MD NO ADDRESS ON FILE LUMBAGO (Primary Dx); NEURALGIA/NEURITIS NOS Social History Tobacco Use Types Packs/Day Years Used Date Smoking Tobacco: Never Assessed Comments Unknown Sex and Gender Information Value Date Recorded Sex Assigned at Not on file Legal Sex Female 5:22 AM VISUAL ARTIST Gender Identity Not on file Sexual Orientation Not on file documented as of this encounter Plan of Treatment Not on file documented as of this encounter Visit Diagnoses Diagnosis Lumbago- Primary Neuralgia, neuritis, and radiculitis, unspecified documented in this encounter Additional Health Concerns Infection Onset Date Last Indicated Resolved Time VRE Comment:Urine 10/30/13 Resolved 11/04/2013 11/04/2013 8 10:33 AM VISUAL ARTIST R/O COVID-19 12/25/2019 12/25/2019 12/26/2019 2:46 PM CDT R/O COVID-19 05/09/2020 05/09/2020 05/09/2020 12:1 7 PM VISUAL ARTIST documented as of this encounter Care Teams Keg Varnisher Relationship Specialty Start Date End Date Dara Tavera FNP [address] [place] [address] PCP - General NURSE PRACTITIONER 10/13/18 documented as of this encounter
--- OUTSIDE RECORDS SUMMARY | 2025-06-14 20:46 | XMS_ITS | Encounter Summary ---
Author Organization [facility] Address [address] [place] [address] Care Team Providers Care Video Editing Intern Name Role Phone Dara Tavera Primary Care Provider Encounter Details Date Type Department Care Team (Latest Contact Info) Description 11/18/2002 Outpatient [facility] [place] [address] [place] [address] Dmitri Vega MD [address] [place] [address] SURGERY FOLLOWUP, UNSPEC (Primary Dx) Social History Tobacco Use Types Packs/Day Years Used Date Smoking Tobacco: Never Assessed Comments Unknown Sex and Gender Information Value Date Recorded Sex Assigned at Not on file Legal Sex Female 5:22 AM CLAM DREDGER Gender Identity Not on file Sexual Orientation Not on file documented as of this encounter Plan of Treatment Not on file documented as of this encounter Visit Diagnoses Diagnosis Follow-up examination, following unspecified surgery- Primary documented in this encounter Additional Health Concerns Infection Onset Date Last Indicated Resolved Time VRE Comment:Urine 10/30/13 Resolved 11/04/2013 11/04/2013 8 10:33 AM CLAM DREDGER R/O COVID-19 12/25/2019 12/25/2019 12/26/2019 2:46 PM CDT R/O COVID-19 05/09/2020 05/09/2020 05/09/2020 12:1 7 PM CLAM DREDGER documented as of this encounter Care Teams Video Editing Intern Relationship Specialty Start Date End Date Dara Tavera FNP [address] [place] [phone] PCP - General NURSE PRACTITIONER 10/13/18 documented as of this encounter
--- OUTSIDE RECORDS SUMMARY | 2025-06-14 20:46 | XMS_ITS | Encounter Summary ---
Author Organization [facility] Address [address] [place] [address] Care Team Providers Care Medical And Health Services Manager Name Role Phone Dara Tavera Primary Care Provider Encounter Details Date Type Department Care Team (Latest Contact Info) Description 11/05/2002 [facility] [address] [place] [address] Raúl Osullivan MD [address] [place], [place] [address] OTHER FUNCTIONAL DISORDER BLADDER (Primary Dx) Social History Tobacco Use Types Packs/Day Years Used Date Smoking Tobacco: Never Assessed Comments Unknown Sex and Gender Information Value Date Recorded Sex Assigned at Not on file Legal Sex Female 5:22 AM AIRPLANE RENTAL CLERK Gender Identity Not on file Sexual Orientation Not on file documented as of this encounter Plan of Treatment Not on file documented as of this encounter Visit Diagnoses Diagnosis Other functional disorder of bladder- Primary documented in this encounter Additional Health Concerns Infection Onset Date Last Indicated Resolved Time VRE Comment:Urine 10/30/13 Resolved 11/04/2013 11/04/2013 8 10:33 AM AIRPLANE RENTAL CLERK R/O COVID-19 12/25/2019 12/25/2019 12/26/2019 2:46 PM CDT R/O COVID-19 05/09/2020 05/09/2020 05/09/2020 12:1 7 PM AIRPLANE RENTAL CLERK documented as of this encounter Care Teams Medical And Health Services Manager Relationship Specialty Start Date End Date Dara Tavera FNP [address] [place] [phone] PCP - General NURSE PRACTITIONER 10/13/18 documented as of this encounter
--- OUTSIDE RECORDS SUMMARY | 2025-06-14 20:46 | XMS_ITS | Encounter Summary ---
Author Organization [facility] Address [address] [place] [address] Care Team Providers Care Spring Coverer Name Role Phone Dara Tavera Primary Care Provider Encounter Details Date Type Department Care Team (Latest Contact Info) Description 12/01/2003 Outpatient Historical [facility] Urology- [address]tr[address], 3[address] [place] [address] Hossein Blair MD NO ADDRESS ON FILE FEMALE STRESS INCONTINENCE (Primary Dx); ENURESIS NOS Social History Tobacco Use Types Packs/Day Years Used Date Smoking Tobacco: Never Assessed Comments Unknown Sex and Gender Information Value Date Recorded Sex Assigned at Not on file Legal Sex Female 5:22 AM MELT DOWN FURNACE OPERATOR Gender Identity Not on file Sexual Orientation Not on file documented as of this encounter Plan of Treatment Not on file documented as of this encounter Visit Diagnoses Diagnosis Female stress incontinence- Primary Unspecified urinary incontinence documented in this encounter Additional Health Concerns Infection Onset Date Last Indicated Resolved Time VRE Comment:Urine 10/30/13 Resolved 11/04/2013 11/04/2013 8 10:33 AM MELT DOWN FURNACE OPERATOR R/O COVID-19 12/25/2019 12/25/2019 12/26/2019 2:46 PM CDT R/O COVID-19 05/09/2020 05/09/2020 05/09/2020 12:1 7 PM MELT DOWN FURNACE OPERATOR documented as of this encounter Care Teams Spring Coverer Relationship Specialty Start Date End Date Dara Tavera FNP [address] [place] [address] PCP - General NURSE PRACTITIONER 10/13/18 documented as of this encounter
--- OUTSIDE RECORDS SUMMARY | 2025-06-14 20:46 | XMS_ITS | Encounter Summary ---
Author Organization [facility] Address [address] [place] [address] Care Team Providers Care Tech Brazer Tester Name Role Phone Dara Tavera Primary Care Provider [phone] Encounter Details Date Type Department Care Team (Latest Contact Info) Description 03/07/2005 Outpatient Historical [facility] Pain Management Procedures [address] [place] [address] Prasad Carpenter MD NO ADDRESS ON FILE LUMBOSACRAL NEURITIS NOS (Primary Dx) Social History Tobacco Use Types Packs/Day Years Used Date Smoking Tobacco: Never Assessed Comments Unknown Sex and Gender Information Value Date Recorded Sex Assigned at Not on file Legal Sex Female 5:22 AM PSYCHOLOGICAL AIDE Gender Identity Not on file Sexual Orientation Not on file documented as of this encounter Plan of Treatment Not on file documented as of this encounter Visit Diagnoses Diagnosis Thoracic or lumbosacral neuritis or radiculitis, unspecified- Primary documented in this encounter Additional Health Concerns Infection Onset Date Last Indicated Resolved Time VRE Comment:Urine 10/30/13 Resolved 11/04/2013 11/04/2013 8 10:33 AM PSYCHOLOGICAL AIDE R/O COVID-19 12/25/2019 12/25/2019 12/26/2019 2:46 PM CDT R/O COVID-19 05/09/2020 05/09/2020 05/09/2020 12:1 7 PM PSYCHOLOGICAL AIDE documented as of this encounter Care Teams Tech Brazer Tester Relationship Specialty Start Date End Date Dara Tavera FNP [address] [place] [address] PCP - General NURSE PRACTITIONER 10/13/18 documented as of this encounter
--- OUTSIDE RECORDS SUMMARY | 2025-06-14 20:46 | XMS_ITS | Encounter Summary ---
Author Organization [facility] Address [address] [place] [address] Care Team Providers Care Cake Knocker Name Role Phone Dara Tavera Primary Care Provider Encounter Details Date Type Department Care Team (Latest Contact Info) Description 04/28/[address] [facility] [address] [place] [address] [place] [address] Krissy Pickard FNP [address] [facility] [address] [place] [address] ENTHESOPATHY OF HIP (Primary Dx) Social History Tobacco Use Types Packs/Day Years Used Date Smoking Tobacco: Never Assessed Comments Unknown Sex and Gender Information Value Date Recorded Sex Assigned at Not on file Legal Sex Female 5:22 AM GUIDE TRAVEL Gender Identity Not on file Sexual Orientation Not on file documented as of this encounter Plan of Treatment Not on file documented as of this encounter Visit Diagnoses Diagnosis Enthesopathy of hip region- Primary documented in this encounter Additional Health Concerns Infection Onset Date Last Indicated Resolved Time VRE Comment:Urine 10/30/13 Resolved 11/04/2013 11/04/2013 8 10:33 AM GUIDE TRAVEL R/O COVID-19 12/25/2019 12/25/2019 12/26/2019 2:46 PM CDT R/O COVID-19 05/09/2020 05/09/2020 05/09/2020 12:1 7 PM GUIDE TRAVEL documented as of this encounter Care Teams Cake Knocker Relationship Specialty Start Date End Date Dara Tavera FNP [address] [place] [phone] PCP - General NURSE PRACTITIONER 10/13/18 documented as of this encounter
--- OUTSIDE RECORDS SUMMARY | 2025-06-14 20:47 | XMS_ITS | Encounter Summary ---
Author Organization [facility] Address [address] [place] [address] Care Team Providers Care Die Mounter Name Role Phone Dara Tavera Primary Care Provider Encounter Details Date Type Department Care Team (Latest Contact Info) Description 05/22/[address] [facility] Urology- [address]trance [address], 3rd [place] [address] Hossein Blair MD NO ADDRESS ON FILE FB bladder/urethra (Primary Dx); URGE & STRESS MIXED INCONTINENCE Social History Tobacco Use Types Packs/Day Years Used Date Smoking Tobacco: Never Assessed Comments Unknown Sex and Gender Information Value Date Recorded Sex Assigned at Not on file Legal Sex Female 5:22 AM CHEMISTRY TEACHER Gender Identity Not on file Sexual [...] Resolved 11/04/2013 11/04/2013 8 10:33 AM CHEMISTRY TEACHER R/O COVID-19 12/25/2019 12/25/2019 12/26/2019 2:46 PM CDT R/O COVID-19 05/09/2020 05/09/2020 05/09/2020 12:1 7 PM CHEMISTRY TEACHER documented as of this encounter Care Teams Die Mounter Relationship Specialty Start Date End Date Dara Tavera FNP [address] [place] [phone] PCP - General NURSE PRACTITIONER 10/13/18 documented as of this encounter
--- OUTSIDE RECORDS SUMMARY | 2025-06-14 20:47 | XMS_ITS | Encounter Summary ---
Author Organization [facility] Address [address] [facility] [address] Attn: [place] [address] Care Team Providers Care Sanitation Worker Cleaning Equipment Name Role Phone Dara Tavera Primary Care Provider Encounter Details Date Type Department Care Team ([facility] Contact Info) Description 10/29/2001 Outpatient Historical Non-Staff, Physician NO ADDRESS ON FILE Social History Tobacco Use Types Packs/Day Years Used Date Smoking Tobacco: Never Assessed Comments Unknown Sex and Gender Information Value Date Recorded Sex Assigned at Not on file Legal Sex Female 5:22 AM JAI ALAI PLAYER Gender Identity Not on file Sexual Orientation Not on file documented as of this encounter Plan of Treatment Not on file documented as of this encounter Visit Diagnoses Not on filedocumented in this encounter Additional Health Concerns Infection Onset Date Last Indicated Resolved Time VRE Comment:Urine 10/30/13 Resolved 11/04/2013 11/04/2013 8 10:33 AM JAI ALAI PLAYER R/O COVID-19 12/25/2019 12/25/2019 12/26/2019 2:46 PM CDT R/O COVID-19 05/09/2020 05/09/2020 05/09/2020 12:1 7 PM JAI ALAI PLAYER documented as of this encounter Care Teams Sanitation Worker Cleaning Equipment Relationship Specialty Start Date End Date Dara Tavera FNP [address] [place] [address] PCP - General NURSE PRACTITIONER 10/13/18 documented as of this encounter
--- OUTSIDE RECORDS SUMMARY | 2025-06-14 20:47 | XMS_ITS | Encounter Summary ---
Author Organization [facility] Address [address] [place] [address] Care Team Providers Care Cleaning Custodian Name Role Phone Dara Tavera Primary Care Provider [phone] Encounter Details Date Type Department Care Team (Latest Contact Info) Description 06/04/1997 Outpatient Historical [facility] Roney Arora MD [address] [facility] [address] [place] [address] Unspecified osteomyelitis, other specified site (Primary Dx); Need vaccination-viral disease Social History Tobacco Use Types Packs/Day Years Used Date Smoking Tobacco: Never Assessed Comments Unknown Sex and Gender Information Value Date Recorded Sex Assigned at Not on file Legal Sex Female 5:22 AM OPERATIONS LIEUTENANT Gender Identity Not on file Sexual [...] Resolved 11/04/2013 11/04/2013 8 10:33 AM OPERATIONS LIEUTENANT R/O COVID-19 12/25/2019 12/25/2019 12/26/2019 2:46 PM CDT R/O COVID-19 05/09/2020 05/09/2020 05/09/2020 12:1 7 PM OPERATIONS LIEUTENANT documented as of this encounter Care Teams Cleaning Custodian Relationship Specialty Start Date End Date Dara Tavera FNP [address] [place] [phone] PCP - General NURSE PRACTITIONER 10/13/18 documented as of this encounter
--- OUTSIDE RECORDS SUMMARY | 2025-06-14 20:47 | XMS_ITS | Encounter Summary ---
Author Organization [facility] Address [address] [place] [address] Care Team Providers Care Steel Rule Inspector Name Role Phone Dara Tavera Primary Care Provider Encounter Details Date Type Department Care Team (Late st Contact Info) Description 07/03/2007 Outpatient [facility] [address] [place] [address] Tej Will MD [address] [address] Social History Tobacco Use Types Packs/Day Years Used Date Smoking Tobacco: Never Assessed Comments Unknown Sex and Gender Information Value Date Recorded Sex Assigned at Not on file Legal Sex Female 5:22 AM CHLOROBUTADIENE SCRUBBER OPERATOR Gender Identity Not on file Sexual Orientation Not on file documented as of this encounter Plan of Treatment Not on file documented as of this encounter Visit Diagnoses Not on filedocumented in this encounter Additional Health Concerns Infection Onset Date Last Indicated Resolved Time VRE Comment:Urine 10/30/13 Resolved 11/04/2013 11/04/2013 8 10:33 AM CHLOROBUTADIENE SCRUBBER OPERATOR R/O COVID-19 12/25/2019 12/25/2019 12/26/2019 2:46 PM CDT R/O COVID-19 05/09/2020 05/09/2020 05/09/2020 12:1 7 PM CHLOROBUTADIENE SCRUBBER OPERATOR documented as of this encounter Care Teams Steel Rule Inspector Relationship Specialty Start Date End Date Dara Tavera FNP [address] [place] [phone] PCP - General NURSE PRACTITIONER 10/13/18 documented as of this encounter
--- OUTSIDE RECORDS SUMMARY | 2025-06-14 20:47 | XMS_ITS | Encounter Summary ---
Author Organization [facility] Address [address] [place] [address] Care Team Providers Care Analyst Name Role Phone Dara Tavera Primary Care Provider Encounter Details Date Type Department Care Team (Latest Contact Info) Description 07/24/2003 Outpatient Historical [facility] (Primary Dx) Social History Tobacco Use Types Packs/Day Years Used Date Smoking Tobacco: Never Assessed Comments Unknown Sex and Gender Information Value Date Recorded Sex Assigned at Not on file Legal Sex Female 5:22 AM GREETING CARD MAKER Gender Identity Not on file Sexual [...] 10/30/13 Resolved 11/04/2013 11/04/2013 8 10:33 AM GREETING CARD MAKER R/O COVID-19 12/25/2019 12/25/2019 12/26/2019 2:46 PM CDT R/O COVID-19 05/09/2020 05/09/2020 05/09/2020 12:1 7 PM GREETING CARD MAKER documented as of this encounter Care Teams Analyst Relationship Specialty Start Date End Date Dara Tavera FNP [address] [place] [phone] PCP - General NURSE PRACTITIONER 10/13/18 documented as of this encounter
--- OUTSIDE RECORDS SUMMARY | 2025-06-14 20:47 | XMS_ITS | Encounter Summary ---
Author Organization [facility] Address [address] [place] [address] Care Team Providers Care Porcelain Technician Name Role Phone Dara Tavera AMANDEEP Primary Care Provider Encounter Details Date Type Department Care Team (Latest Contact Info) Description 10/04/2003 Outpatient Historical [facility] Behavioral Clinical Services [address] [place] [address] Hood Kerr Jr., MD [address] [place] [address] SCHIZOAFFECTIVE-UNSP EC (CMS/HCC) (Primary Dx) Social History Tobacco Use Types Packs/Day Years Used Date Smoking Tobacco: Never Assessed Comments Unknown Sex and Gender Information Value Date Recorded Sex Assigned at Not on file Legal Sex Female 5:22 AM MISSILE AND MISSILE CHECKOUT TECHNICIAN Gender Identity Not on file Sexual Orientation Not on file documented as of this encounter Plan of Treatment Not on file documented as of this encounter Visit Diagnoses Diagnosis Schizoaffective disorder, unspecified condition (CMS/HCC)- Primary Schizoaffective disorder, unspecified condition documented in this encounter Additional Health Concerns Infection Onset Date Last Indicated Resolved Time VRE Comment:Urine 10/30/13 Resolved 11/04/2013 11/04/2013 8 10:33 AM MISSILE AND MISSILE CHECKOUT TECHNICIAN R/O COVID-19 12/25/2019 12/25/2019 12/26/2019 2:46 PM CDT R/O COVID-19 05/09/2020 05/09/2020 05/09/2020 12:1 7 PM MISSILE AND MISSILE CHECKOUT TECHNICIAN documented as of this encounter Care Teams Porcelain Technician Relationship Specialty Start Date End Date Dara Tavera FNP [address] [place] [phone] PCP - General NURSE PRACTITIONER 10/13/18 documented as of this encounter
--- OUTSIDE RECORDS SUMMARY | 2025-06-14 20:47 | XMS_ITS | Encounter Summary ---
Author Organization [facility] Address [address] [place] [address] Care Team Providers Care Speed Reading Teacher Name Role Phone Dara Tavera Primary Care Provider Encounter Details Date Type Department Care Team (Latest Contact Info) Description 07/02/1997 Outpatient Historical [facility] Roney Arora MD [address] [facility] [address] [place] [address] Unspecified osteomyelitis, other specified site (Primary Dx) Social History Tobacco Use Types Packs/Day Years Used Date Smoking Tobacco: Never Assessed Comments Unknown Sex and Gender Information Value Date Recorded Sex Assigned at Not on file Legal Sex Female 5:22 AM EDUCATIONAL TECHNOLOGY COORDINATOR Gender Identity Not on file Sexual Orientation Not on file documented as of this encounter Plan of Treatment Not on file documented as of this encounter Visit Diagnoses Diagnosis Unspecified osteomyelitis, other specified site- Primary documented in this encounter Additional Health Concerns Infection Onset Date Last Indicated Resolved Time VRE Comment:Urine 10/30/13 Resolved 11/04/2013 11/04/2013 8 10:33 AM EDUCATIONAL TECHNOLOGY COORDINATOR R/O COVID-19 12/25/2019 12/25/2019 12/26/2019 2:46 PM CDT R/O COVID-19 05/09/2020 05/09/2020 05/09/2020 12:1 7 PM EDUCATIONAL TECHNOLOGY COORDINATOR documented as of this encounter Care Teams Speed Reading Teacher Relationship Specialty Start Date End Date Dara Tavera FNP [address] [place] [phone] PCP - General NURSE PRACTITIONER 10/13/18 documented as of this encounter
--- OUTSIDE RECORDS SUMMARY | 2025-06-14 20:47 | XMS_ITS | Encounter Summary ---
Author Organization [facility] Address [address] [place] [address] Care Team Providers Care Lab Scientist Name Role Phone Dara Tavera AMANDEEP Primary Care Provider [phone] Encounter Details Date Type Department Care Team (Latest Contact Info) Description 09/03/2003 Outpatient Historical [facility] Behavioral Clinical Services [address] [place] [address] Hood Kerr Jr., MD [address] [place] [address] SCHIZOAFFECTIVE-UNSP EC (CMS/HCC) (Primary Dx) Social History Tobacco Use Types Packs/Day Years Used Date Smoking Tobacco: Never Assessed Comments Unknown Sex and Gender Information Value Date Recorded Sex Assigned at Not on file Legal Sex Female 5:22 AM FLUME WORKER Gender Identity Not on file Sexual Orientation Not on file documented as of this encounter Plan of Treatment Not on file documented as of this encounter Visit Diagnoses Diagnosis Schizoaffective disorder, unspecified condition (CMS/HCC)- Primary Schizoaffective disorder, unspecified condition documented in this encounter Additional Health Concerns Infection Onset Date Last Indicated Resolved Time VRE Comment:Urine 10/30/13 Resolved 11/04/2013 11/04/2013 8 10:33 AM FLUME WORKER R/O COVID-19 12/25/2019 12/25/2019 12/26/2019 2:46 PM CDT R/O COVID-19 05/09/2020 05/09/2020 05/09/2020 12:1 7 PM FLUME WORKER documented as of this encounter Care Teams Lab Scientist Relationship Specialty Start Date End Date Dara Tavera FNP [address] [place] [phone] PCP - General NURSE PRACTITIONER 10/13/18 documented as of this encounter
--- OUTSIDE RECORDS SUMMARY | 2025-06-14 20:47 | XMS_ITS | Encounter Summary ---
Author Organization [facility] Address [address] [place] [address] Care Team Providers Care Insurance Account Assistant Name Role Phone Dara Tavera Primary Care Provider Encounter Details Date Type Department Care Team (Latest Contact Info) Description 07/28/2003 Outpatient Historical [facility] [address] [place] [address] Hossein Blair MD NO ADDRESS ON FILE PREOP EXAM OTHER SPECIFIED (Primary Dx) Social History Tobacco Use Types Packs/Day Years Used Date Smoking Tobacco: Never Assessed Comments Unknown Sex and Gender Information Value Date Recorded Sex Assigned at Not on file Legal Sex Female 5:22 AM SURVEY PROJECT MANAGER Gender Identity Not on file Sexual Orientation Not on file documented as of this encounter Plan of Treatment Not on file documented as of this encounter Visit Diagnoses Diagnosis Other specified pre-operative examination- Primary documented in this encounter Additional Health Concerns Infection Onset Date Last Indicated Resolved Time VRE Comment:Urine 10/30/13 Resolved 11/04/2013 11/04/2013 8 10:33 AM SURVEY PROJECT MANAGER R/O COVID-19 12/25/2019 12/25/2019 12/26/2019 2:46 PM CDT R/O COVID-19 05/09/2020 05/09/2020 05/09/2020 12:1 7 PM SURVEY PROJECT MANAGER documented as of this encounter Care Teams Insurance Account Assistant Relationship Specialty Start Date End Date Dara Tavera FNP [address] [place] [phone] PCP - General NURSE PRACTITIONER 10/13/18 documented as of this encounter
--- OUTSIDE RECORDS SUMMARY | 2025-06-14 20:47 | XMS_ITS | Encounter Summary ---
Author Organization [facility] Address [address] [place] [address] Care Team Providers Care Master Esthetician Name Role Phone Dara Tavera AMANDEEP Primary Care Provider Encounter Details Date Type Department Care Team (Late st Contact Info) Description 07/22/2007 Emergency [facility] Emergency Department [address] [place] [address] Ed, Physician NO ADDRESS ON [...] URINALYSIS MICROSCOPY ONLY Routine 07/22/2007 12:38 PM TRIPE COOKER URINALYSIS W/REFLEX MICROSCOPIC Routine 07/22/2007 12:38 PM TRIPE COOKER URINE CULTURE Stat 07/22/2007 12:38 PM TRIPE COOKER documented in this encounter Results * (ABNORMAL) URINALYSIS MICROSCOPY ONLY (07/22/2007 12:38 PM TRIPE COOKER) WBC URINE None Seen 0 - 2 INTERFACE SYSTEM RBC UA None Seen 0 - 2 INTERFACE SYSTEM HYALINE CAST None Seen 0 - 2 INTERFA CE SYSTEM BACTERIA UA Few(A) None Seen INTERFAC E SYSTEM 07/22/2007 12:3 8 PM TRIPE COOKER us Amaury De La Rosa MD URINE ORDERABLES Edited Performing Organization Address [facility] Phone Number INTERFACE SYSTEM Refer to clinic/hospital department * (ABNORMAL) URINALYSIS (07/22/2007 12:38 PM TRIPE COOKER) COLOR UA Dark Yellow Straw INTERFAC E [...] No INTERFACE SYSTEM 07/22/2007 12:3 8 PM TRIPE COOKER us Amaury De La Rosa MD URINE ORDERABLES Edited Performing Organization Address [facility] Phone Number INTERFACE SYSTEM Refer to clinic/hospital department * URINE CULTURE (07/22/2007 12:38 PM TRIPE COOKER) FINAL REPORT No growth INTERFA CE SYSTEM 07/22/2007 12:3 8 PM TRIPE COOKER 07/22/2007 3:01 PM TRIPE COOKER us Amaury De La Rosa MD MICROBIOLOGY - GENERAL ORDERABLE S Final Result Performing Organization Address [facility] Phone Number INTERFACE SYSTEM Refer to clinic/hospital [...] as of this encounter Care Teams Master Esthetician Relationship Specialty Start Date End Date Dara Tavera FNP [address] [place] [phone] PCP - General NURSE PRACTITIONER 10/13/18 documented as of this encounter
--- OUTSIDE RECORDS SUMMARY | 2025-06-14 20:47 | XMS_ITS | Encounter Summary ---
Author Organization [facility] Address [address] [place] [address] Care Team Providers Care Chocolate Molder Name Role Phone Dara Tavera Primary Care Provider [phone] Encounter Details Date Type Department Care Team (Late st Contact Info) Description 07/12/2007 Emergency [facility] Emergency Department [address] [place] [address] Ed, Physician NO ADDRESS ON FILE Oniel Sainz MD [address] [place] [address] Social History Tobacco Use Types Packs/Day Years Used Date Smoking Tobacco: Never Assessed Comments Unknown Sex and Gender Information Value Date Recorded Sex Assigned at Not on file Legal Sex Female 5:22 AM ESTHETICIAN SPA Gender Identity Not on file Sexual Orientation Not on file documented as of this encounter Plan of Treatment Not on file documented as of this encounter Visit Diagnoses Not on filedocumented in this encounter Additional Health Concerns Infection Onset Date Last Indicated Resolved Time VRE Comment:Urine 10/30/13 Resolved 11/04/2013 11/04/2013 8 10:33 AM ESTHETICIAN SPA R/O COVID-19 12/25/2019 12/25/2019 12/26/2019 2:46 PM CDT R/O COVID-19 05/09/2020 05/09/2020 05/09/2020 12:1 7 PM ESTHETICIAN SPA documented as of this encounter Care Teams Chocolate Molder Relationship Specialty Start Date End Date Dara Tavera FNP [address] [place] [phone] PCP - General NURSE PRACTITIONER 10/13/18 documented as of this encounter
--- OUTSIDE RECORDS SUMMARY | 2025-06-14 20:47 | XMS_ITS | Encounter Summary ---
Author Organization [facility] Address [address] [place] [address] Care Team Providers Care Work Order Detailer Name Role Phone Dara Tavera Primary Care Provider Encounter Details Date Type Department Care Team (Latest Contact Info) Description 07/17/2003 Outpatient Historical [facility] Urology- [address]tr[address], 3rd [place] [address] Hossein Blair MD NO ADDRESS ON FILE URGE & STRESS MIXED INCONTINENCE (Primary Dx); FB bladder/urethra Social History Tobacco Use Types Packs/Day Years Used Date Smoking Tobacco: Never Assessed Comments Unknown Sex and Gender Information Value Date Recorded Sex Assigned at Not on file Legal Sex Female 5:22 AM WIRING INSPECTOR Gender Identity Not on file Sexual [...] 10/30/13 Resolved 11/04/2013 11/04/2013 8 10:33 AM WIRING INSPECTOR R/O COVID-19 12/25/2019 12/25/2019 12/26/2019 2:46 PM CDT R/O COVID-19 05/09/2020 05/09/2020 05/09/2020 12:1 7 PM WIRING INSPECTOR documented as of this encounter Care Teams Work Order Detailer Relationship Specialty Start Date End Date Dara Tavera FNP [address] [place] [phone] PCP - General NURSE PRACTITIONER 10/13/18 documented as of this encounter
--- OUTSIDE RECORDS SUMMARY | 2025-06-14 20:47 | XMS_ITS | Encounter Summary ---
Author Organization [facility] Address [address] [place] [address] Care Team Providers Care Nougat Candy Maker Helper Name Role Phone Dara Tavera AMANDEEP Primary Care Provider [phone] Encounter Details Date Type Department Care Team (Latest Contact Info) Description 07/29/[address] [facility] Behavioral Clinical Services [address] [place] [address] Hood Kerr Jr., MD [address] [place] [address] SCHIZOAFFECTIVE-UNSP EC (CMS/HCC) (Primary Dx) Social History Tobacco Use Types Packs/Day Years Used Date Smoking Tobacco: Never Assessed Comments Unknown Sex and Gender Information Value Date Recorded Sex Assigned at Not on file Legal Sex Female 5:22 AM ANALYSIS INTERNSHIP Gender Identity Not on file Sexual Orientation Not on file documented as of this encounter Plan of Treatment Not on file documented as of this encounter Visit Diagnoses Diagnosis Schizoaffective disorder, unspecified condition (CMS/HCC)- Primary Schizoaffective disorder, unspecified condition documented in this encounter Additional Health Concerns Infection Onset Date Last Indicated Resolved Time VRE Comment:Urine 10/30/13 Resolved 11/04/2013 11/04/2013 8 10:33 AM ANALYSIS INTERNSHIP R/O COVID-19 12/25/2019 12/25/2019 12/26/2019 2:46 PM CDT R/O COVID-19 05/09/2020 05/09/2020 05/09/2020 12:1 7 PM ANALYSIS INTERNSHIP documented as of this encounter Care Teams Nougat Candy Maker Helper Relationship Specialty Start Date End Date Dara Tavera FNP [address] [place] [phone] PCP - General NURSE PRACTITIONER 10/13/18 documented as of this encounter
--- OUTSIDE RECORDS SUMMARY | 2025-06-14 20:47 | XMS_ITS | Encounter Summary ---
Author Organization [facility] Address [address] [place] [address] Care Team Providers Care Plastic Mixer Name Role Phone Dara Tavera Primary Care Provider Encounter Details Date Type Department Care Team (Late st Contact Info) Description 06/10/1997 Outpatient Historical [facility] Chio Lopez MD [address] [place] [phone] Lumbago (Primary Dx) Social History Tobacco Use Types Packs/Day Years Used Date Smoking Tobacco: Never Assessed Comments Unknown Sex and Gender Information Value Date Recorded Sex Assigned at Not on file Legal Sex Female 5:22 AM ALPINE PATROLLER Gender Identity Not on file Sexual Orientation Not on file documented as of this encounter Plan of Treatment Not on file documented as of this encounter Visit Diagnoses Diagnosis Lumbago- Primary documented in this encounter Additional Health Concerns Infection Onset Date Last Indicated Resolved Time VRE Comment:Urine 10/30/13 Resolved 11/04/2013 11/04/2013 8 10:33 AM ALPINE PATROLLER R/O COVID-19 12/25/2019 12/25/2019 12/26/2019 2:46 PM CDT R/O COVID-19 05/09/2020 05/09/2020 05/09/2020 12:1 7 PM ALPINE PATROLLER documented as of this encounter Care Teams Plastic Mixer Relationship Specialty Start Date End Date Dara Tavera FNP [address] [place] [address] PCP - General NURSE PRACTITIONER 10/13/18 documented as of this encounter
--- OUTSIDE RECORDS SUMMARY | 2025-06-14 20:47 | XMS_ITS | Encounter Summary ---
Author Organization [facility] Address [address] [place] [address] Care Team Providers Care Cigar Brander Name Role Phone Dara Tavera Primary Care Provider Encounter Details Date Type Department Care Team (Latest Contact Info) Description 11/08/2002 Outpatient Historical [facility] Ear, Nose and Throat 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
--- OUTSIDE RECORDS SUMMARY | 2025-06-14 20:47 | XMS_ITS | Encounter Summary ---
Author Organization [facility] Address [address] [place] [address] Care Team Providers Care Director Content Marketing Name Role Phone Dara Tavera Primary Care Provider Encounter Details Date Type Department Care Team (Latest Contact Info) Description 08/14/2003 Outpatient Historical [facility] Urology- [address] Entrance B, 3rd [place] [address] Hossein Blair MD NO ADDRESS ON FILE FEMALE STRESS INCONTINENCE (Primary Dx) Social History Tobacco Use Types Packs/Day Years Used Date Smoking Tobacco: Never Assessed Comments Unknown Sex and Gender Information Value Date Recorded Sex Assigned at Not on file Legal Sex Female 5:22 AM COLOR MAKER Gender Identity Not on file Sexual Orientation Not on file documented as of this encounter Plan of Treatment Not on file documented as of this encounter Visit Diagnoses Diagnosis Female stress incontinence- Primary documented in this encounter Additional Health Concerns Infection Onset Date Last Indicated Resolved Time VRE Comment:Urine 10/30/13 Resolved 11/04/2013 11/04/2013 8 10:33 AM COLOR MAKER R/O COVID-19 12/25/2019 12/25/2019 12/26/2019 2:46 PM CDT R/O COVID-19 05/09/2020 05/09/2020 05/09/2020 12:1 7 PM COLOR MAKER documented as of this encounter Care Teams Director Content Marketing Relationship Specialty Start Date End Date Dara Tavera FNP [address] [place] [address] PCP - General NURSE PRACTITIONER 10/13/18 documented as of this encounter
--- OUTSIDE RECORDS SUMMARY | 2025-06-14 20:47 | XMS_ITS | Encounter Summary ---
Author Organization [facility] Address [address] [place] [address] Care Team Providers Care Order Make Up Clerk Name Role Phone Dara Tavera Primary Care Provider Encounter Details Date Type Department Care Team (Latest Contact Info) Description 09/23/2003 Outpatient Historical [facility] Imaging Services [address] [place] [address] Hossein Blair MD NO ADDRESS ON FILE ENURESIS NOS (Primary Dx) Social History Tobacco Use Types Packs/Day Years Used Date Smoking Tobacco: Never Assessed Comments Unknown Sex and Gender Information Value Date Recorded Sex Assigned at Not on file Legal Sex Female 5:22 AM BOBBIN MARKER Gender Identity Not on file Sexual Orientation Not on file documented as of this encounter Plan of Treatment Not on file documented as of this encounter Visit Diagnoses Diagnosis Unspecified urinary incontinence- Primary documented in this encounter Additional Health Concerns Infection Onset Date Last Indicated Resolved Time VRE Comment:Urine 10/30/13 Resolved 11/04/2013 11/04/2013 8 10:33 AM BOBBIN MARKER R/O COVID-19 12/25/2019 12/25/2019 12/26/2019 2:46 PM CDT R/O COVID-19 05/09/2020 05/09/2020 05/09/2020 12:1 7 PM BOBBIN MARKER documented as of this encounter Care Teams Order Make Up Clerk Relationship Specialty Start Date End Date Dara Tavera FNP [address] [place] [address] PCP - General NURSE PRACTITIONER 10/13/18 documented as of this encounter
--- OUTSIDE RECORDS SUMMARY | 2025-06-14 20:47 | XMS_ITS | Encounter Summary ---
Author Organization [facility] Address [address] [place] [address] Care Team Providers Care Bisque Placer Name Role Phone Dara Tavera Primary Care Provider Encounter Details Date Type Department Care Team (Late st Contact Info) Description 07/16/2003 [facility] [address] [place] [address] Hossein Blair MD NO ADDRESS ON FILE BLADDER DISORDER NEC (Primary Dx) Social History Tobacco Use Types Packs/Day Years Used Date Smoking Tobacco: Never Assessed Comments Unknown Sex and Gender Information Value Date Recorded Sex Assigned at Not on file Legal Sex Female 5:22 AM OIL PROCESSING TECHNICIAN Gender Identity Not on file Sexual Orientation Not on file documented as of this encounter Plan of Treatment Not on file documented as of this encounter Visit Diagnoses Diagnosis Other specified disorder of bladder- Primary documented in this encounter Additional Health Concerns Infection Onset Date Last Indicated Resolved Time VRE Comment:Urine 10/30/13 Resolved 11/04/2013 11/04/2013 8 10:33 AM OIL PROCESSING TECHNICIAN R/O COVID-19 12/25/2019 12/25/2019 12/26/2019 2:46 PM CDT R/O COVID-19 05/09/2020 05/09/2020 05/09/2020 12:1 7 PM OIL PROCESSING TECHNICIAN documented as of this encounter Care Teams Bisque Placer Relationship Specialty Start Date End Date Dara Tavera FNP [address] [place] [address] PCP - General NURSE PRACTITIONER 10/13/18 documented as of this encounter
--- OUTSIDE RECORDS SUMMARY | 2025-06-14 20:47 | XMS_ITS | Encounter Summary ---
Author Organization [facility] Address [address] [place] [address] Care Team Providers Care E Business Manager Name Role Phone Dara Tavera AMANDEEP Primary Care Provider Encounter Details Date Type Department Care Team (Late st Contact Info) Description 08/05/2007 Emergency [facility] Emergency Department [address] [place] [address] Ed, Physician NO ADDRESS ON [...] on file Legal Sex Female 5:22 AM FLUID PUMP OPERATOR Gender Identity Not on file Sexual Orientation Not on file documented as of this encounter Plan of Treatment Not on file documented as of this encounter Procedures Procedure Name Priority Date/Time Associated Diagnosis Comments CT HEAD WO CONTRAST Routine 08/05/2007 6 :19 PM FLUID PUMP OPERATOR XR CHEST PA AND LATERAL 2 VW Routine 08/05/2007 5:14 PM FLUID PUMP OPERATOR CBC WITH DIFFERENTIAL Stat 08/05/2007 4:15 PM FLUID PUMP OPERATOR BASIC METABOLIC PANEL Stat 08/05/2007 4:15 PM FLUID PUMP OPERATOR documented in this encounter Results * CT HEAD WO CONTRAST (08/05/2007 6:19 PM FLUID PUMP OPERATOR) Anatomical Region Laterality Modality Head Other 08/05/2007 6:19 PM FLUID PUMP OPERATOR Narrative 08/05/2007 6:33 PM FLUID PUMP OPERATOR The posterior fossa is grossly normal. The [...] CHEST PA AND LATERAL (08/05/2007 5:14 PM FLUID PUMP OPERATOR) Anatomical Region Laterality Modality Chest Other 08/05/2007 5:14 PM FLUID PUMP OPERATOR Narrative 08/05/2007 7:38 PM FLUID PUMP OPERATOR The heart and mediastinum are normal in [...] (ABNORMAL) CBC WITH DIFFERENTIAL (08/05/2007 4:15 PM FLUID PUMP OPERATOR) EOSINOPHIL ABSOLUTE 0.3 0.0 - 0.7 K/ul [facility] RBC 4.46 4.20 - 5.40 Mil/ul [facility] LYMPHOCYTES 31.5 24.0 - 44.0 % [facility] MCHC 33.2 30.0 - 35.0 g/dL [facility] LYMPHOCYTE ABSOLUTE 2.6 1.2 - 4.0 K/ul [facility] MCV 87.0 84.0 - 103.0 Fl [facility] MPV 9.8 8.9 - 12.8 Fl [facility] BASOPHILS ABSOLUTE 0.1 0.0 - 0.2 K/ul [facility] BASOPHILS 0.6 0.0 - 1.0 % [facility] HEMOGLOBIN 12.9 12.0 - 16.0 g/dL [facility] RDW 14.6(H) 11.0 - 14.5 % [facility] MONOCYTE ABSOLUTE 0.7(H) 0.1 - 0.6 K/ul [facility] MONOCYTES 7.7 2.0 - 10.0 % [facility] WBC 8.4 4.5 - 11.0 K/ul [facility] MCH 28.9 27.0 - 34.0 pg [facility] NEUTROPHIL ABSOLUTE 4.8 2.0 - 8.0 K/ul [facility] NEUTROPHILS 56.7 42.2 - 75.2 % [facility] HEMATOCRIT 38.8 36.0 - 46.0 % [facility] EOSINOPHILS 3.5 0.0 - 7.0 % [facility] PLATELETS 232 140 - 440 K/ul [facility] Blood specimen (specimen) 08/05/2007 4:15 PM FLUID PUMP OPERATOR 08/05/2007 4:26 PM FLUID PUMP OPERATOR Hemant Bran MD HEMATOLOGY ORDERABLES Destiny l Result Performing Organization Address [facility] de Phone Number [facility] [address] [place] [address] * (ABNORMAL) BASIC METABOLIC PANEL (08/05/2007 4:15 PM FLUID PUMP OPERATOR) ANION GAP 9 9 - 20 mEq/L [facility] BUN 14 7 - 17 mg/dL [facility] CO2 19(L) 22 - 32 mmol/l [facility] OSMOLALITY, CALCULATED 290 275 - 295 mOsm/Kg [facility] POTASSIUM 3.9 3.5 - 5.0 mEq/L [facility] CREATININE 0.9 0.7 - 1.2 mg/dL [facility] CALCIUM 9.4 8.4 - 10.5 mg/dL [facility] GLUCOSE 105 70 - 110 mg/dL [facility] CHLORIDE 117(H) 95 - 110 mEq/L [facility] SODIUM 141 136 - 145 mEq/L [facility] Blood specimen (specimen) 08/05/2007 4:15 PM FLUID PUMP OPERATOR 08/05/2007 4:26 PM FLUID PUMP OPERATOR Hemant Bran MD CHEMISTRY ORDERABLES Final Result Performing Organization Address [facility] de Phone Number [facility] [address] [place] [address] documented in this encounter Visit Diagnoses Diagnosis Headache(784.0) Headache Chest pain, unspecified Disturbance of skin sensation Other specified cardiac dysrhythmias(427.89) Other specified cardiac dysrhythmias Unspecified asthma(493.90) Unspecified asthma Schizoaffective disorder, unspecified condition ([facility]) Schizoaffective disorder, unspecified condition Tobacco use disorder [...] 10/30/13 Resolved 11/04/2013 11/04/2013 8 10:33 AM FLUID PUMP OPERATOR R/O COVID-19 12/25/2019 12/25/2019 12/26/2019 2:46 PM CDT R/O COVID-05/09/2020 05/09/2020 05/09/2020 12:1 7 PM FLUID PUMP OPERATOR documented as of this encounter Care Teams E Business Manager Relationship Specialty Start Date End Date Dara Tavera FNP [address] [place] [phone] PCP - General NURSE PRACTITIONER 10/13/18 documented as of this encounter
--- OUTSIDE RECORDS SUMMARY | 2025-06-14 20:47 | XMS_ITS | Encounter Summary ---
Author Organization [facility] Address [address] [place] [address] Care Team Providers Care Home Restoration Service Supervisor Name Role Phone Dara Tavera Primary Care Provider Encounter Details Date Type Department Care Team (Latest Contact Info) Description 07/31/2003 Inpatient Historical [facility] Operating Room [address] [place] [address] Hossein Blair MD NO ADDRESS ON FILE FB BLADDER & URETHRA (Primary Dx) Social History Tobacco Use Types Packs/Day Years Used Date Smoking Tobacco: Never Assessed Comments Unknown Sex and Gender Information Value Date Recorded Sex Assigned at Not on file Legal Sex Female 5:22 AM VP FOUNDATION Gender Identity Not on file Sexual Orientation Not on file documented as of this encounter Plan of Treatment Not on file documented as of this encounter Visit Diagnoses Diagnosis Foreign body in bladder and urethra- Primary documented in this encounter Additional Health Concerns Infection Onset Date Last Indicated Resolved Time VRE Comment:Urine 10/30/13 Resolved 11/04/2013 11/04/2013 8 10:33 AM VP FOUNDATION R/O COVID-19 12/25/2019 12/25/2019 12/26/2019 2:46 PM CDT R/O COVID-19 05/09/2020 05/09/2020 05/09/2020 12:1 7 PM VP FOUNDATION documented as of this encounter Care Teams Home Restoration Service Supervisor Relationship Specialty Start Date End Date Dara Tavera FNP [address] [place] [address] PCP - General NURSE PRACTITIONER 10/13/18 documented as of this encounter
--- OUTSIDE RECORDS SUMMARY | 2025-06-14 20:47 | XMS_ITS | Encounter Summary ---
Author Organization [facility] Address [address] [place] [address] Care Team Providers Care Theatrical Scenic Designer Name Role Phone Dara Tavera Primary Care Provider Encounter Details Date Type Department Care Team (Latest Contact Info) Description 08/08/2003 Outpatient Historical [facility] Urology- [address] Entrance B, 3rd [place] [address] Hossein Blair MD NO ADDRESS ON FILE URGE & STRESS MIXED INCONTINENCE (Primary Dx) Social History Tobacco Use Types Packs/Day Years Used Date Smoking Tobacco: Never Assessed Comments Unknown Sex and Gender Information Value Date Recorded Sex Assigned at Not on file Legal Sex Female 5:22 AM DIRECTOR CARDIAC Gender Identity Not on file Sexual Orientation Not on file documented as of this encounter Plan of Treatment Not on file documented as of this encounter Visit Diagnoses Diagnosis Mixed incontinence urge and stress (male)(female)- Primary documented in this encounter Additional Health Concerns Infection Onset Date Last Indicated Resolved Time VRE Comment:Urine 10/30/13 Resolved 11/04/2013 11/04/2013 8 10:33 AM DIRECTOR CARDIAC R/O COVID-19 12/25/2019 12/25/2019 12/26/2019 2:46 PM CDT R/O COVID-19 05/09/2020 05/09/2020 05/09/2020 12:1 7 PM DIRECTOR CARDIAC documented as of this encounter Care Teams Theatrical Scenic Designer Relationship Specialty Start Date End Date Dara Tavera FNP [address] [place] [address] PCP - General NURSE PRACTITIONER 10/13/18 documented as of this encounter
--- OUTSIDE RECORDS SUMMARY | 2025-06-14 20:47 | XMS_ITS | Encounter Summary ---
Author Organization [facility] Address [address] [place] [address] Care Team Providers Care Credit Investigator Name Role Phone Dara Tavera Primary Care Provider Encounter Details Date Type Department Care Team (Late st Contact Info) Description 07/20/2007 Outpatient Historical [facility] [address] [facility] [address] [place] [address] Prasad Carpenter MD NO ADDRESS ON FILE Social History Tobacco Use Types Packs/Day Years Used Date Smoking Tobacco: Never Assessed Comments Unknown Sex and Gender Information Value Date Recorded Sex Assigned at Not on file Legal Sex Female 5:22 AM RESIDENTIAL ELECTRICIAN Gender Identity Not on file Sexual Orientation Not on file documented as of this encounter Plan of Treatment Not on file documented as of this encounter Visit Diagnoses Not on filedocumented in this encounter Additional Health Concerns Infection Onset Date Last Indicated Resolved Time VRE Comment:Urine 10/30/13 Resolved 11/04/2013 11/04/2013 8 10:33 AM RESIDENTIAL ELECTRICIAN R/O COVID-19 12/25/2019 12/25/2019 12/26/2019 2:46 PM CDT R/O COVID-19 05/09/2020 05/09/2020 05/09/2020 12:1 7 PM RESIDENTIAL ELECTRICIAN documented as of this encounter Care Teams Credit Investigator Relationship Specialty Start Date End Date Dara Tavera FNP [address] [place] [phone] PCP - General NURSE PRACTITIONER 10/13/18 documented as of this encounter
--- OUTSIDE RECORDS SUMMARY | 2025-06-14 20:47 | XMS_ITS | Encounter Summary ---
Author Organization [facility] Address [address] [place] [address] Care Team Providers Care Manager Floor Name Role Phone Dara Tavera AMANDEEP Primary Care Provider Encounter Details Date Type Department Care Team (Latest Contact Info) Description 09/24/2002 Outpatient Historical [facility] Ear, Nose and Throat [address] [place] [address] Dmitri Vega MD [address] [place] [address] Leukoplakia oral mucosa (Primary Dx) Social History Tobacco Use Types Packs/Day Years Used Date Smoking Tobacco: Never Assessed Comments Unknown Sex and Gender Information Value Date Recorded Sex Assigned at Not on file Legal Sex Female 5:22 AM FIRE CREW WORKER Gender Identity Not on file Sexual [...] Resolved 11/04/2013 11/04/2013 8 10:33 AM FIRE CREW WORKER R/O COVID-19 12/25/2019 12/25/2019 12/26/2019 2:46 PM CDT R/O COVID-19 05/09/2020 05/09/2020 05/09/2020 12:1 7 PM FIRE CREW WORKER documented as of this encounter Care Teams Manager Floor Relationship Specialty Start Date End Date Dara Tavera FNP [address] [place] [phone] PCP - General NURSE PRACTITIONER 10/13/18 documented as of this encounter
--- OUTSIDE RECORDS SUMMARY | 2025-06-14 20:47 | XMS_ITS | Encounter Summary ---
Author Organization [facility] Address [address] [place] [address] Care Team Providers Care Hotel Or Motel Manager Name Role Phone Dara Tavera Primary Care Provider Encounter Details Date Type Department Care Team (Late st Contact Info) Description 07/31/1997 Outpatient Historical [facility] Social History Tobacco Use Types Packs/Day Years Used Date Smoking Tobacco: Never Assessed Comments Unknown Sex and Gender Information Value Date Recorded Sex Assigned at Not on file Legal Sex Female 5:22 AM CLINICAL TRIALS MANAGER Gender Identity Not on file Sexual Orientation Not on file documented as of this encounter Plan of Treatment Not on file documented as of this encounter Visit Diagnoses Not on filedocumented in this encounter Additional Health Concerns Infection Onset Date Last Indicated Resolved Time VRE Comment:Urine 10/30/13 Resolved 11/04/2013 11/04/2013 8 10:33 AM CLINICAL TRIALS MANAGER R/O COVID-19 12/25/2019 12/25/2019 12/26/2019 2:46 PM CDT R/O COVID-19 05/09/2020 05/09/2020 05/09/2020 12:1 7 PM CLINICAL TRIALS MANAGER documented as of this encounter Care Teams Hotel Or Motel Manager Relationship Specialty Start Date End Date Dara Tavera FNP [address] [place] [address] PCP - General NURSE PRACTITIONER 10/13/18 documented as of this encounter
--- OUTSIDE RECORDS SUMMARY | 2025-06-14 20:47 | XMS_ITS | Encounter Summary ---
Author Organization [facility] Address [address] [place] [address] Care Team Providers Care Scientific Research Associate Name Role Phone Dara Tavera Primary Care Provider Encounter Details Date Type Department Care Team (Late st Contact Info) Description 08/11/2007 Emergency [facility] Emergency Department [address] [place] [address] Ed, Physician NO ADDRESS ON FILE Social History Tobacco Use Types Packs/Day Years Used Date Smoking Tobacco: Never Assessed Comments Unknown Sex and Gender Information Value Date Recorded Sex Assigned at Not on file Legal Sex Female 5:22 AM LPTA Gender Identity Not on file Sexual Orientation Not on file documented as of this encounter Plan of Treatment Not on file documented as of this encounter Visit Diagnoses Not on filedocumented in this encounter Additional Health Concerns Infection Onset Date Last Indicated Resolved Time VRE Comment:Urine 10/30/13 Resolved 11/04/2013 11/04/2013 8 10:33 AM LPTA R/O COVID-19 12/25/2019 12/25/2019 12/26/2019 2:46 PM CDT R/O COVID-19 05/09/2020 05/09/2020 05/09/2020 12:1 7 PM LPTA documented as of this encounter Care Teams Scientific Research Associate Relationship Specialty Start Date End Date Dara Tavera FNP [address] [place] [address] PCP - General NURSE PRACTITIONER 10/13/18 documented as of this encounter
--- OUTSIDE RECORDS SUMMARY | 2025-06-14 20:47 | XMS_ITS | Encounter Summary ---
Author Organization [facility] Address [address] [place] [address] Care Team Providers Care Occupational Safety And Health Manager Name Role Phone Dara Tavera Primary Care Provider Encounter Details Date Type Department Care Team (Latest Contact Info) Description 03/07/2019 Ancillary Orders [facility] Centralized Scheduling [address] [place] [address] Dara Tavera FNP [address] [place] [address] Screening breast examination Social History Tobacco Use Types Packs/Day Years Used Date Smoking Tobacco: Every Day Cigarettes Smokeless Tobacco: Never Comments:2 cigarettes daily Alcohol Use Standard Drinks/Week Comments No 0 (1 standard drink = 0.6 oz pur e alcohol) Comments No Sex and Gender Information Value Date Recorded Sex Assigned at Not on file Legal Sex Female 5:22 AM DRUG DISCOVERY INFORMATICS SPECIALIST Gender Identity Not on file Sexual [...] COVID-19 05/09/2020 05/09/2020 05/09/2020 12:1 7 PM DRUG DISCOVERY INFORMATICS SPECIALIST documented as of this encounter Care Teams Occupational Safety And Health Manager Relationship Specialty Start Date End Date Dara Tavera FNP [address] [place] [phone] PCP - General NURSE PRACTITIONER 10/13/18 documented as of this encounter
--- OUTSIDE RECORDS SUMMARY | 2025-06-14 20:47 | XMS_ITS | Encounter Summary ---
Author Organization [facility] Address [address] [place] [address] Care Team Providers Care Fueler Name Role Phone Dara Tavera Primary Care Provider Encounter Details Date Type Department Care Team (Latest Contact Info) Description 07/02/2003 Outpatient Historical [facility] Imaging Services [address] [place] [address] Hossein Blair MD NO ADDRESS ON FILE RENAL & URETERAL DIS NOS (Primary Dx) Social History Tobacco Use Types Packs/Day Years Used Date Smoking Tobacco: Never Assessed Comments Unknown Sex and Gender Information Value Date Recorded Sex Assigned at Not on file Legal Sex Female 5:22 AM ADVERTISING ACCOUNT MANAGER Gender Identity Not on file Sexual Orientation Not on file documented as of this encounter Plan of Treatment Not on file documented as of this encounter Visit Diagnoses Diagnosis Unspecified disorder of kidney and ureter- Primary documented in this encounter Additional Health Concerns Infection Onset Date Last Indicated Resolved Time VRE Comment:Urine 10/30/13 Resolved 11/04/2013 11/04/2013 8 10:33 AM ADVERTISING ACCOUNT MANAGER R/O COVID-19 12/25/2019 12/25/2019 12/26/2019 2:46 PM CDT R/O COVID-19 05/09/2020 05/09/2020 05/09/2020 12:1 7 PM ADVERTISING ACCOUNT MANAGER documented as of this encounter Care Teams Fueler Relationship Specialty Start Date End Date Dara Tavera FNP [address] [place] [address] PCP - General NURSE PRACTITIONER 10/13/18 documented as of this encounter
--- OUTSIDE RECORDS SUMMARY | 2025-06-14 20:47 | XMS_ITS | Encounter Summary ---
Author Organization [facility] Address [address] [place] [address] Care Team Providers Care Piling Setter Name Role Phone Dara Tavera Primary Care Provider Encounter Details Date Type Department Care Team (Late st Contact Info) Description 11/04/2003 Outpatient [facility] Behavioral Clinical Services [address] [place] [address] Hood Kerr Jr., MD [address] [place] [address] Social History Tobacco Use Types Packs/Day Years Used Date Smoking Tobacco: Never Assessed Comments Unknown Sex and Gender Information Value Date Recorded Sex Assigned at Not on file Legal Sex Female 5:22 AM MATERIALS AND CORROSION ENGINEER Gender Identity Not on file Sexual Orientation Not on file documented as of this encounter Plan of Treatment Not on file documented as of this encounter Visit Diagnoses Not on filedocumented in this encounter Additional Health Concerns Infection Onset Date Last Indicated Resolved Time VRE Comment:Urine 10/30/13 Resolved 11/04/2013 11/04/2013 8 10:33 AM MATERIALS AND CORROSION ENGINEER R/O COVID-19 12/25/2019 12/25/2019 12/26/2019 2:46 PM CDT R/O COVID-19 05/09/2020 05/09/2020 05/09/2020 12:1 7 PM MATERIALS AND CORROSION ENGINEER documented as of this encounter Care Teams Piling Setter Relationship Specialty Start Date End Date Dara Tavera FNP [address] [place] [address] PCP - General NURSE PRACTITIONER 10/13/18 documented as of this encounter
--- OUTSIDE RECORDS SUMMARY | 2025-06-14 20:47 | XMS_ITS | Encounter Summary ---
Author Organization [facility] Address [address] [place] [address] Care Team Providers Care Director Metabolism Name Role Phone Dara Tavera Primary Care Provider Encounter Details Date Type Department Care Team (Latest Contact Info) Description 06/28/2003 Outpatient Historical [facility] Behavioral Clinical Services [address] [place] [address] Oniel Upton MD NO ADDRESS ON FILE SCHIZOAFFECTIVE-UNSP EC ([facility]) (Primary Dx) Social History Tobacco Use Types Packs/Day Years Used Date Smoking Tobacco: Never Assessed Comments Unknown Sex and Gender Information Value Date Recorded Sex Assigned at Not on file Legal Sex Female 5:22 AM BATTERY CONTAINER TESTER ALUMINUM Gender Identity Not on file Sexual Orientation Not on file documented as of this encounter Plan of Treatment Not on file documented as of this encounter Visit Diagnoses Diagnosis Schizoaffective disorder, unspecified condition ([facility]/HCC)- Primary Schizoaffective disorder, unspecified condition documented in this encounter Additional Health Concerns Infection Onset Date Last Indicated Resolved Time VRE Comment:Urine 10/30/13 Resolved 11/04/2013 11/04/2013 8 10:33 AM BATTERY CONTAINER TESTER ALUMINUM R/O COVID-19 12/25/2019 12/25/2019 12/26/2019 2:46 PM CDT R/O COVID-19 05/09/2020 05/09/2020 05/09/2020 12:1 7 PM BATTERY CONTAINER TESTER ALUMINUM documented as of this encounter Care Teams Director Metabolism Relationship Specialty Start Date End Date Dara Tavera FNP [address] [place] [address] PCP - General NURSE PRACTITIONER 10/13/18 documented as of this encounter
--- OUTSIDE RECORDS SUMMARY | 2025-06-14 20:47 | XMS_ITS | Encounter Summary ---
Author Organization [facility] Address [address] [place] [address] Care Team Providers Care Cloud Engineer Name Role Phone Dara Tavera AMANDEEP Primary Care Provider Encounter Details Date Type Department Care Team (Latest Contact Info) Description 11/03/2003 Outpatient Historical [facility] Behavioral Clinical Services [address] [place] [address] Hood Kerr Jr., MD [address] [place] [address] SCHIZOAFFECTIVE-UNSP EC (CMS/HCC) (Primary Dx) Social History Tobacco Use Types Packs/Day Years Used Date Smoking Tobacco: Never Assessed Comments Unknown Sex and Gender Information Value Date Recorded Sex Assigned at Not on file Legal Sex Female 5:22 AM NEGOTIATOR Gender Identity Not on file Sexual Orientation Not on file documented as of this encounter Plan of Treatment Not on file documented as of this encounter Visit Diagnoses Diagnosis Schizoaffective disorder, unspecified condition (CMS/HCC)- Primary Schizoaffective disorder, unspecified condition documented in this encounter Additional Health Concerns Infection Onset Date Last Indicated Resolved Time VRE Comment:Urine 10/30/13 Resolved 11/04/2013 11/04/2013 8 10:33 AM NEGOTIATOR R/O COVID-19 12/25/2019 12/25/2019 12/26/2019 2:46 PM CDT R/O COVID-19 05/09/2020 05/09/2020 05/09/2020 12:1 7 PM NEGOTIATOR documented as of this encounter Care Teams Cloud Engineer Relationship Specialty Start Date End Date Dara Tavera FNP [address] [place] [phone] PCP - General NURSE PRACTITIONER 10/13/18 documented as of this encounter
--- OUTSIDE RECORDS SUMMARY | 2025-06-14 20:47 | XMS_ITS | Encounter Summary ---
Author Organization [facility] Address [address] [place] [address] Care Team Providers Care Operations Officer Afloat Name Role Phone Dara Tavera AMANDEEP Primary Care Provider Encounter Details Date Type Department Care Team (Late st Contact Info) Description 07/31/2007 Emergency [facility] Emergency Department [address] [place] [address] Ed, Physician NO ADDRESS ON FILE Silvia Mayers MD [address] [place] [address] Social History Tobacco Use Types Packs/Day Years Used Date Smoking Tobacco: Never Assessed Comments Unknown Sex and Gender Information Value Date Recorded Sex Assigned at Not on file Legal Sex Female 5:22 AM BUFFET ATTENDANT Gender Identity Not on file Sexual Orientation Not on file documented as of this encounter Plan of Treatment Not on file documented as of this encounter Procedures Procedure Name Priority Date/Time Associated Diagnosis Comments CT ABDOMEN PELVIS W CONTRAST Routine 08/01/2007 2:49 AM BUFFET ATTENDANT CBC WITH DIFFERENTIAL Stat 07/31/2007 11:25 PM BUFFET ATTENDANT COMPREHENSIVE METABOLIC PANEL Stat 07/31/2007 11:25 PM BUFFET ATTENDANT URINALYSIS MICROSCOPY ONLY Stat 07/31/2007 11:20 PM BUFFET ATTENDANT URINALYSIS W/REFLEX MICROSCOPIC Stat 07/31/2007 11:20 PM BUFFET ATTENDANT documented in this encounter Results * CT ABDOMEN PELVIS W CONTRAST (08/01/2007 2:49 AM BUFFET ATTENDANT) Anatomical Region Laterality Modality Abdomen Other 08/01/2007 2:49 AM BUFFET ATTENDANT Narrative 08/01/2007 2:[address] of the abdomen and pelvis [...] are noted as above. - Procedure Note Rossy Tyler - 08/01/2007 CT of the abdomen and [...] noted. Postoperative changes arenoted as above. - Silvia Mayers MD CT ORDERABLES Final Result * (ABNORMAL) CBC WITH DIFFERENTIAL (07/31/2007 11:25 PM BUFFET ATTENDANT) LYMPHOCYTE ABSOLUTE 2.8 1.2 - 4.0 K/ul [facility] MCV 87.2 84.0 - 103.0 Fl [facility] MPV 10.0 8.9 - 12.8 Fl [facility] BASOPHILS ABSOLUTE 0.1 0.0 - 0.2 K/ul [facility] BASOPHILS 0.6 0.0 - 1.0 % [facility] HEMOGLOBIN 13.2 12.0 - 16.0 g/dL [facility] RDW 14.8(H) 11.0 - 14.5 % [facility] MONOCYTE ABSOLUTE 0.7(H) 0.1 - 0.6 K/ul [facility] MONOCYTES 6.7 2.0 - 10.0 % [facility] WBC 9.7 4.5 - 11.0 K/ul [facility] MCH 29.1 27.0 - 34.0 pg [facility] NEUTROPHIL ABSOLUTE 6.1 2.0 - 8.0 K/ul [facility] NEUTROPHILS 62.8 42.2 - 75.2 % [facility] HEMATOCRIT 39.6 36.0 - 46.0 % [facility] EOSINOPHILS 1.4 0.0 - 7.0 % [facility] PLATELETS 272 140 - 440 K/ul [facility] EOSINOPHIL ABSOLUTE 0.1 0.0 - 0.7 K/ul [facility] RBC 4.54 4.20 - 5.40 Mil/ul [facility] LYMPHOCYTES 28.5 24.0 - 44.0 % [facility] MCHC 33.3 30.0 - 35.0 g/dL [facility] Blood specimen (specimen) 07/31/2007 11:25 PM BUFFET ATTENDANT 07/31/2007 11:32 PM BUFFET ATTENDANT us Silvia Mayers MD HEMATOLOGY ORDERABLES Final Res ult [facility] [address] [place] [address] * (ABNORMAL) COMPREHENSIVE METABOLIC PANEL (07/31/2007 11:25 PM BUFFET ATTENDANT) BUN 20(H) 7 - 17 mg/dL [facility] CO2 19(L) 22 - 32 mmol/l [facility] ANION GAP 11 9 - 20 mEq/L [facility] AST 14 8 - 33 U/L [facility] POTASSIUM 3.6 3.5 - 5.0 mEq/L [facility] GLOBULIN (CALC) 3.0 2.4 - 3.9 g/dL [facility] ALBUMIN 4.3 3.5 - 5.0 g/dL [facility] CREATININE 0.9 0.7 - 1.2 mg/dL [facility] CALCIUM 9.4 8.4 - 10.5 mg/dL [facility] ALT 21 4 - 36 IU/L [facility] OSMOLALITY, CALCULATED 291 275 - 295 mOsm/Kg [facility] GLUCOSE 113(H) 70 - 110 mg/dL [facility] CHLORIDE 114(H) 95 - 110 mEq/L [facility] ALKALINE PHOSPHATASE 154(H) 25 - 100 U/L [facility] ALBUMIN/GLOBULIN RATIO 1.4 1.0 - 2.3 [facility] SODIUM 140 136 - 145 mEq/L [facility] TOTAL PROTEIN 7.3 6.3 - 8.2 g/dL [facility] BILIRUBIN TOTAL 0.2(L) 0.3 - 1.2 mg/dL [facility] Blood specimen (specimen) 07/31/2007 11:25 PM BUFFET ATTENDANT 07/31/2007 11:32 PM BUFFET ATTENDANT Result [facility] Silvia Mayers MD CHEMISTRY ORDERABLES Final Resu lt Performing Organization Address [facility] Co de Phone Number [facility] [address] [place] [address] * (ABNORMAL) URINALYSIS (07/31/2007 11:20 PM BUFFET ATTENDANT) CLARITY UA Clear Clear [facility] SPECIFIC GRAVITY UA 1.031 <=1.005 [facility] GLUCOSE UA NEGATIVE NEGATIVE [facility] PH UA 6.0 5.0 - 9.0 [facility] BILIRUBIN UA NEGATIVE NEGATIVE [facility] LEUKOCYTE ESTERASE UA NEGATIVE NEGATIVE [facility] KETONES UA NEGATIVE NEGATIVE [facility] MICRO EXAM Yes(A) No [facility] COLOR UA Yellow Straw [facility] PROTEIN UA NEGATIVE NEGATIVE [facility] BLOOD UA NEGATIVE NEGATIVE [facility] NITRITE UA NEGATIVE NEGATIVE [facility] UROBILINOGEN UA 0.2 0.2 [facility] Urine, clean catch 07/31/2007 11:20 PM BUFFET ATTENDANT 07/31/2007 11:23 PM BUFFET ATTENDANT Silvia Mayers MD URINE ORDERABLES Final Result Performing Organization Address [facility] de Phone Number [facility] [address] [place] [address] * URINALYSIS MICROSCOPY ONLY (07/31/2007 11:20 PM BUFFET ATTENDANT) HYALINE CAST None Seen 0 - 2 [facility] WBC URINE None Seen 0 - 2 [facility] BACTERIA UA None Seen None Seen [facility] RBC UA None Seen 0 - 2 [facility] Urine specimen (specimen) 07/31/2007 11:20 PM BUFFET ATTENDANT 07/31/2007 11:23 PM BUFFET ATTENDANT Silvia Mayers MD URINE ORDERABLES Final Result [facility] [address] [place] [address] documented in this encounter Visit Diagnoses Not on filedocumented in this encounter Additional Health Concerns Infection Onset Date Last Indicated Resolved Time VRE Comment:Urine 10/30/13 Resolved 11/04/2013 11/04/2013 8 10:33 AM BUFFET ATTENDANT R/O COVID-19 12/25/2019 12/25/2019 12/26/2019 2:46 PM CDT R/O COVID-19 05/09/2020 05/09/2020 05/09/2020 12:1 7 PM BUFFET ATTENDANT documented as of this encounter Care Teams Operations Officer Afloat Relationship Specialty Start Date End Date Dara Tavera FNP [address] [place] [address] PCP - General NURSE PRACTITIONER 10/13/18 documented as of this encounter
--- OUTSIDE RECORDS SUMMARY | 2025-06-14 20:47 | XMS_ITS | Encounter Summary ---
Author Organization [facility] Address [address] [place] [address] Care Team Providers Care Gritting Machine Operator Name Role Phone Dara Tavera AMANDEEP Primary Care Provider Encounter Details Date Type Department Care Team (Late st Contact Info) Description 07/20/2007 Emergency [facility] Emergency Department [address] [place] [address] Ed, Physician NO ADDRESS ON FILE Jorge Danielson III G, DO NO ADDRESS ON FILE Social History Tobacco Use Types Packs/Day Years Used Date Smoking Tobacco: Never Assessed Comments Unknown Sex and Gender Information Value Date Recorded Sex Assigned at Not on file Legal Sex Female 5:22 AM SCRAP CRUSHER Gender Identity Not on file Sexual Orientation Not on file documented as of this encounter Plan of Treatment Not on file documented as of this encounter Procedures Procedure Name Priority Date/Time Associated Diagnosis Comments URINALYSIS W/REFLEX MICROSCOPIC Routine 07/21/2007 1:27 AM SCRAP CRUSHER XR ABDOMEN 1 VW Stat 07/21/2007 1:21 AM SCRAP CRUSHER documented in this encounter Results * URINALYSIS (07/21/2007 1:27 AM SCRAP CRUSHER) COLOR UA Yellow Straw INTERFACE SYSTEM CLARITY [...] No No INTERFACE SYSTEM 07/21/2007 1:27 AM SCRAP CRUSHER Jorge Colinegers III, DO URINE ORDERABLES Edited INTERFACE SYSTEM Refer to clinic/hospital department * XR ABDOMEN 1 VW (07/21/2007 1:21 AM SCRAP CRUSHER) Anatomical Region Laterality Modality Abdomen Other 07/21/2007 1:21 AM SCRAP CRUSHER Narrative 07/21/2007 1:21 AM SCRAP CRUSHER Surgical clips are present in the gallbladder [...] 10/30/13 Resolved 11/04/2013 11/04/2013 8 10:33 AM SCRAP CRUSHER R/O COVID-19 12/25/2019 12/25/2019 12/26/2019 2:46 PM CDT R/O COVID-19 05/09/2020 05/09/2020 05/09/2020 12:1 7 PM SCRAP CRUSHER documented as of this encounter Care Teams Gritting Machine Operator Relationship Specialty Start Date End Date Dara Tavera FNP [address] [place] [phone] PCP - General NURSE PRACTITIONER 10/13/18 documented as of this encounter
--- OUTSIDE RECORDS SUMMARY | 2025-06-14 20:47 | XMS_ITS | Encounter Summary ---
Author Organization [facility] Address [address] Roblesn: [place] [address] Care Team Providers Care Director Of Volunteer Services Name Role Phone Dara Tavera Primary Care Provider Encounter Details Date Type Department Care Team (Late st Contact Info) Description 11/12/1999 Outpatient Historical [place] [place], [address] [place] [address] Social History Tobacco Use Types Packs/Day Years Used Date Smoking Tobacco: Never Assessed Comments Unknown Sex and Gender Information Value Date Recorded Sex Assigned at Not on file Legal Sex Female 5:22 AM FOAM DISPENSER Gender Identity Not on file Sexual Orientation Not on file documented as of this encounter Plan of Treatment Not on file documented as of this encounter Visit Diagnoses Not on filedocumented in this encounter Additional Health Concerns Infection Onset Date Last Indicated Resolved Time VRE Comment:Urine 10/30/13 Resolved 11/04/2013 11/04/2013 8 10:33 AM FOAM DISPENSER R/O COVID-19 12/25/2019 12/25/2019 12/26/2019 2:46 PM CDT R/O COVID-19 05/09/2020 05/09/2020 05/09/2020 12:1 7 PM FOAM DISPENSER documented as of this encounter Care Teams Director Of Volunteer Services Relationship Specialty Start Date End Date Dara Tavera FNP [address] [place] [phone] PCP - General NURSE PRACTITIONER 10/13/18 documented as of this encounter
--- OUTSIDE RECORDS SUMMARY | 2025-06-14 20:47 | XMS_ITS | Encounter Summary ---
Author Organization [facility] Address [address] [facility] Attn: [place] [address] Care Team Providers Care Trestleman Name Role Phone Dara Tavera Primary Care Provider Encounter Details Date Type Department Care Team ([facility] st Contact Info) Description 01/17/2001 Outpatient Historical Non-Staff, Physician NO ADDRESS ON FILE Social History Tobacco Use Types Packs/Day Years Used Date Smoking Tobacco: Never Assessed Comments Unknown Sex and Gender Information Value Date Recorded Sex Assigned at Not on file Legal Sex Female 5:22 AM MACHINE STEMMER Gender Identity Not on file Sexual Orientation Not on file documented as of this encounter Plan of Treatment Not on file documented as of this encounter Visit Diagnoses Not on filedocumented in this encounter Additional Health Concerns Infection Onset Date Last Indicated Resolved Time VRE Comment:Urine 10/30/13 Resolved 11/04/2013 11/04/2013 8 10:33 AM MACHINE STEMMER R/O COVID-19 12/25/2019 12/25/2019 12/26/2019 2:46 PM CDT R/O COVID-19 05/09/2020 05/09/2020 05/09/2020 12:1 7 PM MACHINE STEMMER documented as of this encounter Care Teams Trestleman Relationship Specialty Start Date End Date Dara Tavera FNP [address] [place] [address] PCP - General NURSE PRACTITIONER 10/13/18 documented as of this encounter
--- OUTSIDE RECORDS SUMMARY | 2025-06-14 20:47 | XMS_ITS | Encounter Summary ---
Author Organization [facility] Address [address] [facility] [address] [facility] [address]lesn: [place] [address] Care Team Providers Care Billing And Quality Technician Name Role Phone Dara Tavera Primary Care Provider Encounter Details Date Type Department Care Team (Late st Contact Info) Description 11/25/1999 Outpatient Historical [place] [facility], [place], [address] [place] [address] Social History Tobacco Use Types Packs/Day Years Used Date Smoking Tobacco: Never Assessed Comments Unknown Sex and Gender Information Value Date Recorded Sex Assigned at Not on file Legal Sex Female 5:22 AM INTERNATIONAL REPRESENTATIVE Gender Identity Not on file Sexual Orientation Not on file documented as of this encounter Plan of Treatment Not on file documented as of this encounter Visit Diagnoses Not on filedocumented in this encounter Additional Health Concerns Infection Onset Date Last Indicated Resolved Time VRE Comment:Urine 10/30/13 Resolved 11/04/2013 11/04/2013 8 10:33 AM INTERNATIONAL REPRESENTATIVE R/O COVID-19 12/25/2019 12/25/2019 12/26/2019 2:46 PM CDT R/O COVID-19 05/09/2020 05/09/2020 05/09/2020 12:1 7 PM INTERNATIONAL REPRESENTATIVE documented as of this encounter Care Teams Billing And Quality Technician Relationship Specialty Start Date End Date Dara Tavera FNP [address] [place] [phone] PCP - General NURSE PRACTITIONER 10/13/18 documented as of this encounter
--- OUTSIDE RECORDS SUMMARY | 2025-06-14 20:47 | XMS_ITS | Encounter Summary ---
Author Organization [facility] Address [address] [facility] Attn: [place] [address] Care Team Providers Care Keyboard Instrument Repairer Name Role Phone Dara Tavera Primary Care Provider Encounter Details Date Type Department Care Team ([facility] Contact Info) Description 02/25/2002 Outpatient Historical Raúl Osullivan MD [address] [place] [address] Social History Tobacco Use Types Packs/Day Years Used Date Smoking Tobacco: Never Assessed Comments Unknown Sex and Gender Information Value Date Recorded Sex Assigned at Not on file Legal Sex Female 5:22 AM SITE ACQUISITION SPECIALIST Gender Identity Not on file Sexual Orientation Not on file documented as of this encounter Plan of Treatment Not on file documented as of this encounter Visit Diagnoses Not on filedocumented in this encounter Additional Health Concerns Infection Onset Date Last Indicated Resolved Time VRE Comment:Urine 10/30/13 Resolved 11/04/2013 11/04/2013 8 10:33 AM SITE ACQUISITION SPECIALIST R/O COVID-19 12/25/2019 12/25/2019 12/26/2019 2:46 PM CDT R/O COVID-19 05/09/2020 05/09/2020 05/09/2020 12:1 7 PM SITE ACQUISITION SPECIALIST documented as of this encounter Care Teams Keyboard Instrument Repairer Relationship Specialty Start Date End Date Dara Tavera FNP [address] [place] [phone] PCP - General NURSE PRACTITIONER 10/13/18 documented as of this encounter
--- OUTSIDE RECORDS SUMMARY | 2025-06-14 20:47 | XMS_ITS | Encounter Summary ---
Author Organization [facility] Address [address] [place] [address] Care Team Providers Care Buckle Sewer Name Role Phone Dara Tavera Primary Care Provider Encounter Details Date Type Department Care Team (Latest Contact Info) Description 08/19/2003 Outpatient Historical [facility] Urology- [address] 3[address] [place] [address] Hossein Blair MD NO ADDRESS ON FILE FEMALE STRESS INCONTINENCE (Primary Dx); REMOVAL INT FIXATION DEVICE Social History Tobacco Use Types Packs/Day Years Used Date Smoking Tobacco: Never Assessed Comments Unknown Sex and Gender Information Value Date Recorded Sex Assigned at Not on file Legal Sex Female 5:22 AM MANAGED SECURITY SALES CONSULTANT Gender Identity Not on file [...] 10/30/13 Resolved 11/04/2013 11/04/2013 8 10:33 AM MANAGED SECURITY SALES CONSULTANT R/O COVID-19 12/25/2019 12/25/2019 12/26/2019 2:46 PM CDT R/O COVID-19 05/09/2020 05/09/2020 05/09/2020 12:1 7 PM MANAGED SECURITY SALES CONSULTANT documented as of this encounter Care Teams Buckle Sewer Relationship Specialty Start Date End Date Dara Tavera FNP [address] [place] [address] PCP - General NURSE PRACTITIONER 10/13/18 documented as of this encounter
--- OUTSIDE RECORDS SUMMARY | 2025-06-14 20:47 | XMS_ITS | Encounter Summary ---
Author Organization [facility] Address [address] [place] [address] Care Team Providers Care Diamond Setter Name Role Phone Dara Tavera Primary Care Provider [phone] Encounter Details Date Type Department Care Team (Latest Contact Info) Description 05/28/2003 Outpatient Historical [facility] Behavioral Clinical Services [address] [place] [address] Oniel Upton MD NO ADDRESS ON FILE SCHIZOAFFECTIVE-UNSP EC ([facility]/HCC) (Primary Dx) Social History Tobacco Use Types Packs/Day Years Used Date Smoking Tobacco: Never Assessed Comments Unknown Sex and Gender Information Value Date Recorded Sex Assigned at Not on file Legal Sex Female 5:22 AM INTERNET MANAGER Gender Identity Not on file Sexual Orientation Not on file documented as of this encounter Plan of Treatment Not on file documented as of this encounter Visit Diagnoses Diagnosis Schizoaffective disorder, unspecified condition ([facility]/HCC)- Primary Schizoaffective disorder, unspecified condition documented in this encounter Additional Health Concerns Infection Onset Date Last Indicated Resolved Time VRE Comment:Urine 10/30/13 Resolved 11/04/2013 11/04/2013 8 10:33 AM INTERNET MANAGER R/O COVID-19 12/25/2019 12/25/2019 12/26/2019 2:46 PM CDT R/O COVID-19 05/09/2020 05/09/2020 05/09/2020 12:1 7 PM INTERNET MANAGER documented as of this encounter Care Teams Diamond Setter Relationship Specialty Start Date End Date Dara Tavera FNP [address] [place] [address] PCP - General NURSE PRACTITIONER 10/13/18 documented as of this encounter
--- OUTSIDE RECORDS SUMMARY | 2025-06-14 20:47 | XMS_ITS | Encounter Summary ---
Author Organization [facility] Address [address] [place] [address] Care Team Providers Care Clinical Appeals Specialist Name Role Phone Dara Tavera Primary Care Provider Encounter Details Date Type Department Care Team (Latest Contact Info) Description 06/17/1997 Outpatient Historical [facility] Roney Arora MD [address] [facility] [address] [place] [address] Unspecified osteomyelitis, site unspecified (CMS/HCC) (Primary Dx) Social History Tobacco Use Types Packs/Day Years Used Date Smoking Tobacco: Never Assessed Comments Unknown Sex and Gender Information Value Date Recorded Sex Assigned at Not on file Legal Sex Female 5:22 AM WIND FARM DESIGNER Gender Identity Not on file Sexual [...] Resolved 11/04/2013 11/04/2013 8 10:33 AM WIND FARM DESIGNER R/O COVID-19 12/25/2019 12/25/2019 12/26/2019 2:46 PM CDT R/O COVID-19 05/09/2020 05/09/2020 05/09/2020 12:1 7 PM WIND FARM DESIGNER documented as of this encounter Care Teams Clinical Appeals Specialist Relationship Specialty Start Date End Date Dara Tavera FNP [address] [place] [phone] PCP - General NURSE PRACTITIONER 10/13/18 documented as of this encounter
--- OUTSIDE RECORDS SUMMARY | 2025-06-14 20:47 | XMS_ITS | Encounter Summary ---
Author Organization [facility] Address [address] [place] [address] Care Team Providers Care Shirt Turner Name Role Phone Dara Tavera AMANDEEP Primary Care Provider Encounter Details Date Type Department Care Team (Latest Contact Info) Description 07/30/1997 Outpatient Historical [facility] Roney Arora MD [address] [facility] [address] [place] [address] Bipolar I disorder, most recent episode (or current) unspecified (CMS/HCC) (Primary Dx); Unspecified osteomyelitis, other specified site; Nausea with vomiting Social History Tobacco Use Types Packs/Day Years Used Date Smoking Tobacco: Never Assessed Comments Unknown Sex and Gender Information Value Date Recorded Sex Assigned at Not on file Legal Sex Female 5:22 AM SQL ENGINEER Gender Identity Not on file Sexual [...] 10/30/13 Resolved 11/04/2013 11/04/2013 8 10:33 AM SQL ENGINEER R/O COVID-19 12/25/2019 12/25/2019 12/26/2019 2:46 PM CDT R/O COVID-19 05/09/2020 05/09/2020 05/09/2020 12:1 7 PM SQL ENGINEER documented as of this encounter Care Teams Shirt Turner Relationship Specialty Start Date End Date Dara Tavera FNP [address] [place] [phone] PCP - General NURSE PRACTITIONER 10/13/18 documented as of this encounter
--- OUTSIDE RECORDS SUMMARY | 2025-06-14 20:47 | XMS_ITS | Encounter Summary ---
Author Organization [facility] Address [address] [place] [address] Care Team Providers Care Family Assistant Name Role Phone Dara Tavera Primary Care Provider Encounter Details Date Type Department Care Team (Latest Contact Info) Description 09/25/2003 Outpatient Historical [facility] Urology- [address] Entrance B, 3rd [place] [address] Hossein Blair MD NO ADDRESS ON FILE URGE & STRESS MIXED INCONTINENCE (Primary Dx) Social History Tobacco Use Types Packs/Day Years Used Date Smoking Tobacco: Never Assessed Comments Unknown Sex and Gender Information Value Date Recorded Sex Assigned at Not on file Legal Sex Female 5:22 AM CLAIMS INVESTIGATOR Gender Identity Not on file Sexual Orientation Not on file documented as of this encounter Plan of Treatment Not on file documented as of this encounter Visit Diagnoses Diagnosis Mixed incontinence urge and stress (male)(female)- Primary documented in this encounter Additional Health Concerns Infection Onset Date Last Indicated Resolved Time VRE Comment:Urine 10/30/13 Resolved 11/04/2013 11/04/2013 8 10:33 AM CLAIMS INVESTIGATOR R/O COVID-19 12/25/2019 12/25/2019 12/26/2019 2:46 PM CDT R/O COVID-19 05/09/2020 05/09/2020 05/09/2020 12:1 7 PM CLAIMS INVESTIGATOR documented as of this encounter Care Teams Family Assistant Relationship Specialty Start Date End Date Dara Tavera FNP [address] [place] [address] PCP - General NURSE PRACTITIONER 10/13/18 documented as of this encounter
--- OUTSIDE RECORDS SUMMARY | 2025-06-14 20:47 | XMS_ITS | Encounter Summary ---
Author Organization [facility] Address [address] [place] [address] Care Team Providers Care Neighborhood Coordinator Name Role Phone Dara Tavera AMANDEEP Primary Care Provider Encounter Details Date Type Department Care Team (Late st Contact Info) Description 08/11/2007 Emergency [facility] Emergency Department [address] [place] [address] Ed, Physician NO ADDRESS ON FILE Amaury De La Rosa MD NO ADDRESS ON FILE Social History Tobacco Use Types Packs/Day Years Used Date Smoking Tobacco: Never Assessed Comments Unknown Sex and Gender Information Value Date Recorded Sex Assigned at Not on file Legal Sex Female 5:22 AM DIRT SUPERVISOR Gender Identity Not on file Sexual Orientation Not on file documented as of this encounter Plan of Treatment Not on file documented as of this encounter Procedures Procedure Name Priority Date/Time Associated Diagnosis Comments XR ABDOMEN 1 VW Routine 08/12/2007 4:46 AM DIRT SUPERVISOR CBC WITH DIFFERENTIAL Stat 08/12/2007 4:19 AM DIRT SUPERVISOR LIPASE Stat 08/12/2007 4:19 AM DIRT SUPERVISOR COMPREHENSIVE METABOLIC PANEL Stat 08/12/2007 4:19 AM DIRT SUPERVISOR URINALYSIS W/REFLEX MICROSCOPIC Stat 08/12/2007 3:10 AM DIRT SUPERVISOR documented in this encounter Results * XR ABDOMEN 1 VW (08/12/2007 4:46 AM DIRT SUPERVISOR) Anatomical Region Laterality Modality Abdomen Other 08/12/2007 4:46 AM DIRT SUPERVISOR Narrative 08/12/2007 4:46 AM DIRT SUPERVISOR Exam: KUB Date/Time of Exam: Aug 12, [...] colon/constipation. 2. Postoperative change. - Procedure Note Akira Liu - 08/13/2007 Exam: KUB Date/Time of Exam: [...] * CBC WITH DIFFERENTIAL (08/12/2007 4:19 AM DIRT SUPERVISOR) RBC 4.56 4.20 - 5.40 Mil/ul [facility] MCHC 33.8 30.0 - 35.0 g/dL [facility] LYMPHOCYTE ABSOLUTE 2.2 1.2 - 4.0 K/ul [facility] LYMPHOCYTES 25.6 24.0 - 44.0 % [facility] MCV 86.4 84.0 - 103.0 Fl [facility] BASOPHILS 0.7 0.0 - 1.0 % [facility] MPV 9.9 8.9 - 12.8 Fl [facility] BASOPHILS ABSOLUTE 0.1 0.0 - 0.2 K/ul [facility] HEMOGLOBIN 13.3 12.0 - 16.0 g/dL [facility] MONOCYTES 6.3 2.0 - 10.0 % [facility] RDW 14.1 11.0 - 14.5 % [facility] MONOCYTE ABSOLUTE 0.5 0.1 - 0.6 K/ul [facility] WBC 8.6 4.5 - 11.0 K/ul [facility] NEUTROPHILS 65.3 42.2 - 75.2 % [facility] MCH 29.2 27.0 - 34.0 pg [facility] NEUTROPHIL ABSOLUTE 5.6 2.0 - 8.0 K/ul [facility] HEMATOCRIT 39.4 36.0 - 46.0 % [facility] PLATELETS 233 140 - 440 K/ul [facility] EOSINOPHIL ABSOLUTE 0.2 0.0 - 0.7 K/ul [facility] EOSINOPHILS 2.1 0.0 - 7.0 % [facility] Blood specimen (specimen) 08/12/2007 4:19 AM DIRT SUPERVISOR 08/12/2007 4:22 AM DIRT SUPERVISOR us Amaury De La Rosa MD HEMATOLOGY ORDERABLES Final Resu lt [facility] [address] [place] [address] * (ABNORMAL) COMPREHENSIVE METABOLIC PANEL (08/12/2007 4:19 AM DIRT SUPERVISOR) GLUCOSE 99 70 - 110 mg/dL [facility] ALKALINE PHOSPHATASE 134(H) 25 - 100 U/L [facility] CHLORIDE 108 95 - 110 mEq/L [facility] ALBUMIN/GLOBULIN RATIO 1.4 1.0 - 2.3 [facility] TOTAL PROTEIN 7.8 6.3 - 8.2 g/dL [facility] SODIUM 136 136 - 145 mEq/L [facility] BILIRUBIN TOTAL 0.2(L) 0.3 - 1.2 mg/dL [facility] BUN 20(H) 7 - 17 mg/dL [facility] CO2 23 22 - 32 mmol/l [facility] ANION GAP 9 9 - 20 mEq/L [facility] AST 20 8 - 33 U/L [facility] POTASSIUM 4.1 3.5 - 5.0 mEq/L [facility] GLOBULIN (CALC) 3.3 2.4 - 3.9 g/dL [facility] ALBUMIN 4.5 3.5 - 5.0 g/dL [facility] CREATININE 0.8 0.7 - 1.2 mg/dL [facility] ALT 24 4 - 36 IU/L [facility] CALCIUM 9.7 8.4 - 10.5 mg/dL [facility] OSMOLALITY, CALCULATED 283 275 - 295 mOsm/Kg [facility] Blood specimen (specimen) 08/12/2007 4:19 AM DIRT SUPERVISOR 08/12/2007 4:22 AM DIRT SUPERVISOR Amaury De La Rosa MD CHEMISTRY ORDERABLES Final Resul t Performing Organization Address [facility] de Phone Number [facility] [address] [place] [address] * LIPASE (08/12/2007 4:19 AM DIRT SUPERVISOR) LIPASE 49 6 - 51 U/L [facility] Blood specimen (specimen) 08/12/2007 4:19 AM DIRT SUPERVISOR 08/12/2007 4:22 AM DIRT SUPERVISOR Amaury De La Rosa MD CHEMISTRY ORDERABLES Final Resul t Performing Organization Address [facility] Co de Phone Number [facility] [address] [place] [address] * URINALYSIS (08/12/2007 3:10 AM DIRT SUPERVISOR) CLARITY UA Clear Clear [facility] GLUCOSE UA NEGATIVE NEGATIVE [facility] SPECIFIC GRAVITY UA 1.010 <=1.005 [facility] PH UA 7.0 5.0 - 9.0 [facility] BILIRUBIN UA NEGATIVE NEGATIVE [facility] LEUKOCYTE ESTERASE UA NEGATIVE NEGATIVE [facility] MICRO EXAM No No [facility] KETONES UA NEGATIVE NEGATIVE [facility] COLOR UA Yellow Straw [facility] PROTEIN UA NEGATIVE NEGATIVE [facility] BLOOD UA NEGATIVE NEGATIVE [facility] NITRITE UA NEGATIVE NEGATIVE [facility] UROBILINOGEN UA 0.2 0.2 [facility] Urine, clean catch 08/12/2007 3:10 AM DIRT SUPERVISOR 08/12/2007 3:12 AM DIRT SUPERVISOR us Physician Sj Ed URINE ORDERABLES Final Result Performing Organization Address City/State/[facility] Co de Phone Number [facility] [address] [place] [address] documented in this encounter Visit Diagnoses Not on filedocumented in this encounter Additional Health Concerns Infection Onset Date Last Indicated Resolved Time VRE Comment:Urine 10/30/13 Resolved 11/04/2013 11/04/2013 8 10:33 AM DIRT SUPERVISOR R/O COVID-19 12/25/2019 12/25/2019 12/26/2019 2:46 PM CDT R/O COVID-19 05/09/2020 05/09/2020 05/09/2020 12:1 7 PM DIRT SUPERVISOR documented as of this encounter Care Teams Neighborhood Coordinator Relationship Specialty Start Date End Date Dara Tavera FNP [address] [place] [address] PCP - General NURSE PRACTITIONER 10/13/18 documented as of this encounter
--- OUTSIDE RECORDS SUMMARY | 2025-06-14 20:47 | XMS_ITS | Encounter Summary ---
Author Organization [facility] Address [address] [place] [address] Care Team Providers Care Gem Setter Name Role Phone Dara Tavera Primary Care Provider Encounter Details Date Type Department Care Team (Late st Contact Info) Description 07/16/2007 Outpatient [facility] [address] [place] [address] Tej Will MD [address] [address] Social History Tobacco Use Types Packs/Day Years Used Date Smoking Tobacco: Never Assessed Comments Unknown Sex and Gender Information Value Date Recorded Sex Assigned at Not on file Legal Sex Female 5:22 AM PELT INSPECTOR Gender Identity Not on file Sexual Orientation Not on file documented as of this encounter Plan of Treatment Not on file documented as of this encounter Visit Diagnoses Not on filedocumented in this encounter Additional Health Concerns Infection Onset Date Last Indicated Resolved Time VRE Comment:Urine 10/30/13 Resolved 11/04/2013 11/04/2013 8 10:33 AM PELT INSPECTOR R/O COVID-19 12/25/2019 12/25/2019 12/26/2019 2:46 PM CDT R/O COVID-19 05/09/2020 05/09/2020 05/09/2020 12:1 7 PM PELT INSPECTOR documented as of this encounter Care Teams Gem Setter Relationship Specialty Start Date End Date Dara Tavera FNP [address] [place] [phone] PCP - General NURSE PRACTITIONER 10/13/18 documented as of this encounter
--- OUTSIDE RECORDS SUMMARY | 2025-06-14 20:47 | XMS_ITS | Encounter Summary ---
Author Organization [facility] Address [address] [place] [address] Care Team Providers Care Automotive Airconditioning Mechanic Name Role Phone Dara Tavera Primary Care Provider Encounter Details Date Type Department Care Team (Latest Contact Info) Description 11/08/2002 Outpatient Historical [facility] Operating Room [address] [place] [address] Dmitri Vega MD [address] [place] [address] BENIGN NEOPLASM TONGUE (Primary Dx) Social History Tobacco Use Types Packs/Day Years Used Date Smoking Tobacco: Never Assessed Comments Unknown Sex and Gender Information Value Date Recorded Sex Assigned at Not on file Legal Sex Female 5:22 AM FIXED WING AIRCRAFT FLIGHT ENGINEER Gender Identity Not on file Sexual Orientation Not on file documented as of this encounter Plan of Treatment Not on file documented as of this encounter Visit Diagnoses Diagnosis Benign neoplasm of tongue- Primary documented in this encounter Additional Health Concerns Infection Onset Date Last Indicated Resolved Time VRE Comment:Urine 10/30/13 Resolved 11/04/2013 11/04/2013 8 10:33 AM FIXED WING AIRCRAFT FLIGHT ENGINEER R/O COVID-19 12/25/2019 12/25/2019 12/26/2019 2:46 PM CDT R/O COVID-19 05/09/2020 05/09/2020 05/09/2020 12:1 7 PM FIXED WING AIRCRAFT FLIGHT ENGINEER documented as of this encounter Care Teams Automotive Airconditioning Mechanic Relationship Specialty Start Date End Date Dara Tavera FNP [address] [place] [phone] PCP - General NURSE PRACTITIONER 10/13/18 documented as of this encounter
--- OUTSIDE RECORDS SUMMARY | 2025-06-14 20:47 | XMS_ITS | Encounter Summary ---
Author Organization [facility] Address [address] [place] [address] Care Team Providers Care First Coat Sander Name Role Phone Dara Tavera Primary Care Provider Encounter Details Date Type Department Care Team (Late st Contact Info) Description 08/13/2007 [address] [facility] [address] [place] [address] Tej Will MD [address] [address] Social History Tobacco Use Types Packs/Day Years Used Date Smoking Tobacco: Never Assessed Comments Unknown Sex and Gender Information Value Date Recorded Sex Assigned at Not on file Legal Sex Female 5:22 AM NON FOOD RECEIVING CLERK Gender Identity Not on file Sexual Orientation Not on file documented as of this encounter Plan of Treatment Not on file documented as of this encounter Visit Diagnoses Not on filedocumented in this encounter Additional Health Concerns Infection Onset Date Last Indicated Resolved Time VRE Comment:Urine 10/30/13 Resolved 11/04/2013 11/04/2013 8 10:33 AM NON FOOD RECEIVING CLERK R/O COVID-19 12/25/2019 12/25/2019 12/26/2019 2:46 PM CDT R/O COVID-19 05/09/2020 05/09/2020 05/09/2020 12:1 7 PM NON FOOD RECEIVING CLERK documented as of this encounter Care Teams First Coat Sander Relationship Specialty Start Date End Date Dara Tavera FNP [address] [place] [phone] PCP - General NURSE PRACTITIONER 10/13/18 documented as of this encounter
--- OUTSIDE RECORDS SUMMARY | 2025-06-14 20:48 | XMS_ITS | Encounter Summary ---
Author Organization [facility] Address [address] [place] [address] Care Team Providers Care Program Coordinator For Residence Life Name Role Phone Dara Tavera AMANDEEP Primary Care Provider [phone] Encounter Details Date Type Department Care Team (Late st Contact Info) Description 08/21/2007 Emergency [facility] Emergency Department [address] [place] [address] Ed, Physician NO ADDRESS ON FILE Flex Ricks MD NO ADDRESS ON FILE Social History Tobacco Use Types Packs/Day Years Used Date Smoking Tobacco: Never Assessed Comments Unknown Sex and Gender Information Value Date Recorded Sex Assigned at Not on file Legal Sex Female 5:22 AM BRAND ENGINEER Gender Identity Not on file Sexual Orientation Not on file documented as of this encounter Plan of Treatment Not on file documented as of this encounter Procedures Procedure Name Priority Date/Time Associated Diagnosis Comments CT ABDOMEN PELVIS WO CONTRAST Routine 08/21/2007 11:56 PM BRAND ENGINEER CBC WITH DIFFERENTIAL Stat 08/21/2007 11:44 PM BRAND ENGINEER BASIC METABOLIC PANEL Stat 08/21/2007 11:44 PM BRAND ENGINEER URINALYSIS W/REFLEX MICROSCOPIC Stat 08/21/2007 10:16 PM BRAND ENGINEER documented in this encounter Results * CT ABDOMEN PELVIS WO CONTRAST (08/21/2007 11:56 PM BRAND ENGINEER) Anatomical Region Laterality Modality Abdomen Other 08/21/2007 11:5 6 PM BRAND ENGINEER Narrative 08/22/2007 12:[address] Scan For Renal Colic: Date: 08/21/2007 [...] * CBC WITH DIFFERENTIAL (08/21/2007 11:44 PM BRAND ENGINEER) LYMPHOCYTE ABSOLUTE 2.5 1.2 - 4.0 K/ul [facility] LYMPHOCYTES 24.0 24.0 - 44.0 % [facility] MCV 88.3 84.0 - 103.0 Fl [facility] BASOPHILS 0.6 0.0 - 1.0 % [facility] MPV 9.8 8.9 - 12.8 Fl [facility] BASOPHILS ABSOLUTE 0.1 0.0 - 0.2 K/ul [facility] HEMOGLOBIN 12.6 12.0 - 16.0 g/dL [facility] MONOCYTES 4.8 2.0 - 10.0 % [facility] RDW 14.0 11.0 - 14.5 % [facility] MONOCYTE ABSOLUTE 0.5 0.1 - 0.6 K/ul [facility] WBC 10.5 4.5 - 11.0 K/ul [facility] NEUTROPHILS 68.9 42.2 - 75.2 % [facility] MCH 28.9 27.0 - 34.0 pg [facility] NEUTROPHIL ABSOLUTE 7.2 2.0 - 8.0 K/ul [facility] HEMATOCRIT 38.5 36.0 - 46.0 % [facility] PLATELETS 284 140 - 440 K/ul [facility] EOSINOPHIL ABSOLUTE 0.2 0.0 - 0.7 K/ul [facility] EOSINOPHILS 1.7 0.0 - 7.0 % [facility] RBC 4.36 4.20 - 5.40 Mil/ul [facility] MCHC 32.7 30.0 - 35.0 g/dL [facility] Blood specimen (specimen) 08/21/2007 11:44 PM BRAND ENGINEER 08/21/2007 11:49 PM BRAND ENGINEER us Flex Ricks MD HEMATOLOGY ORDERABLES Destiny ricks Result [facility] [address] [place] [address] * (ABNORMAL) BASIC METABOLIC PANEL (08/21/2007 11:44 PM BRAND ENGINEER) CREATININE 0.8 0.7 - 1.2 mg/dL [facility] CALCIUM 9.8 8.4 - 10.5 mg/dL [facility] GLUCOSE 94 70 - 110 mg/dL [facility] CHLORIDE 112(H) 95 - 110 mEq/L [facility] SODIUM 139 136 - 145 mEq/L [facility] ANION GAP 11 9 - 20 mEq/L [facility] BUN 16 7 - 17 mg/dL [facility] CO2 20(L) 22 - 32 mmol/l [facility] OSMOLALITY, CALCULATED 286 275 - 295 mOsm/Kg [facility] POTASSIUM 3.6 3.5 - 5.0 mEq/L [facility] Blood specimen (specimen) 08/21/2007 11:44 PM BRAND ENGINEER 08/21/2007 11:49 PM BRAND ENGINEER Flex Ricks MD CHEMISTRY ORDERABLES Final Result [facility] [address] [place] [address] * URINALYSIS (08/21/2007 10:16 PM BRAND ENGINEER) CLARITY UA Clear Clear [facility] GLUCOSE UA NEGATIVE NEGATIVE [facility] SPECIFIC GRAVITY UA 1.025 <=1.005 [facility] PH UA 6.5 5.0 - 9.0 [facility] BILIRUBIN UA NEGATIVE NEGATIVE [facility] LEUKOCYTE ESTERASE UA NEGATIVE NEGATIVE [facility] MICRO EXAM No No [facility] KETONES UA NEGATIVE NEGATIVE [facility] COLOR UA Yellow Straw [facility] PROTEIN UA NEGATIVE NEGATIVE [facility] BLOOD UA NEGATIVE NEGATIVE [facility] NITRITE UA NEGATIVE NEGATIVE [facility] UROBILINOGEN UA 0.2 0.2 [facility] Urine, clean catch 08/21/2007 10:16 PM BRAND ENGINEER 08/21/2007 10:16 PM BRAND ENGINEER us Physician Sj Ed URINE ORDERABLES Final Result Performing Organization Address City/State/[facility] Co de Phone Number [facility] [address] [place] [address] documented in this encounter Visit Diagnoses Not on filedocumented in this encounter Additional Health Concerns Infection Onset Date Last Indicated Resolved Time 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
--- OUTSIDE RECORDS SUMMARY | 2025-06-14 20:48 | XMS_ITS | Encounter Summary ---
Author Organization [facility] Address [address] [place] [address] Care Team Providers Care Director Of Corporate Sponsorships Name Role Phone Dara Tavera AMANDEEP Primary Care Provider Encounter Details Date Type Department Care Team (Late st Contact Info) Description 05/16/2007 Emergency [facility] Emergency Department [address] [place] [address] Ed, Physician NO ADDRESS ON FILE Thiago Mota MD NO ADDRESS ON FILE Social History Tobacco Use Types Packs/Day Years Used Date Smoking Tobacco: Never Assessed Comments Unknown Sex and Gender Information Value Date Recorded Sex Assigned at Not on file Legal Sex Female 5:22 AM DIRECTOR OF ONLINE MERCHANDISING Gender Identity Not on file Sexual Orientation Not on file documented as of this encounter Plan of Treatment Not on file documented as of this encounter Procedures Procedure Name Priority Date/Time Associated Diagnosis Comments URINALYSIS MICROSCOPY ONLY Routine 05/16/2007 4:37 PM DIRECTOR OF ONLINE MERCHANDISING URINALYSIS W/REFLEX MICROSCOPIC Routine 05/16/2007 4:37 PM DIRECTOR OF ONLINE MERCHANDISING CBC WITH DIFFERENTIAL Routine 05/16/2007 4:32 PM DIRECTOR OF ONLINE MERCHANDISING LIPASE Routine 05/16/2007 4:32 PM DIRECTOR OF ONLINE MERCHANDISING AMYLASE Routine 05/16/2007 4:32 PM DIRECTOR OF ONLINE MERCHANDISING COMPREHENSIVE METABOLIC PANEL Routine 05/16/2007 4:32 PM DIRECTOR OF ONLINE MERCHANDISING documented in this encounter Results * (ABNORMAL) URINALYSIS (05/16/2007 4:37 PM DIRECTOR OF ONLINE MERCHANDISING) COLOR UA Yellow Straw INTERFACE SYSTEM CLARITY [...] Yes(A) No INTERFACE SYSTEM 05/16/2007 4:37 PM DIRECTOR OF ONLINE MERCHANDISING us Thiago Mota MD URINE ORDERABLES Edited Performing Organization Address [facility] Phone Number INTERFACE SYSTEM Refer to clinic/hospital department * (ABNORMAL) URINALYSIS MICROSCOPY ONLY (05/16/2007 4:37 PM DIRECTOR OF ONLINE MERCHANDISING) WBC URINE None Seen 0 - 2 INTERFACE SYSTEM RBC UA None Seen 0 - 2 INTERFACE SYSTEM HYALINE CAST None Seen 0 - 2 INTERFA CE SYSTEM BACTERIA UA Few(A) None Seen INTERFAC E SYSTEM 05/16/2007 4:37 PM DIRECTOR OF ONLINE MERCHANDISING us Thiago Mota MD URINE ORDERABLES Edited Performing Organization Address [facility] Number INTERFACE SYSTEM Refer to clinic/hospital department * LIPASE (05/16/2007 4:32 PM DIRECTOR OF ONLINE MERCHANDISING) LIPASE 27 6 - 51 U/L INTERFACE SYSTEM 05/16/2007 4:32 PM DIRECTOR OF ONLINE MERCHANDISING us Thiago Mota MD CHEMISTRY ORDERABLES Edited Performing Organization Address [facility] Phone Number INTERFACE SYSTEM Refer to clinic/hospital department * AMYLASE (05/16/2007 4:32 PM DIRECTOR OF ONLINE MERCHANDISING) AMYLASE 48 20 - 104 U/L INTERFACE SYSTEM 05/16/2007 4:32 PM DIRECTOR OF ONLINE MERCHANDISING us Thiago Mota MD CHEMISTRY ORDERABLES Edited Performing Organization Address [facility] Phone Number INTERFACE SYSTEM Refer to clinic/hospital department * (ABNORMAL) COMPREHENSIVE METABOLIC PANEL (05/16/2007 4:32 PM DIRECTOR OF ONLINE MERCHANDISING) GLOBULIN (CALC) 3.0 2.4 - 3.9 g/dL [...] 295 mOsm/Kg INTERFACE SYSTEM 05/16/2007 4:32 PM DIRECTOR OF ONLINE MERCHANDISING us Thiago Mota MD CHEMISTRY ORDERABLES Edited Performing Organization Address [facility] Co de Phone Number INTERFACE SYSTEM Refer to clinic/hospital department * (ABNORMAL) CBC WITH DIFFERENTIAL (05/16/2007 4:32 PM DIRECTOR OF ONLINE MERCHANDISING) WBC 13.2(H) 4.5 - 11.0 K/ul INTERFACE [...] 0.2 K/ul INTERFACE SYSTEM 05/16/2007 4:32 PM DIRECTOR OF ONLINE MERCHANDISING us Thiago Mota MD HEMATOLOGY ORDERABLES Edited INTERFACE SYSTEM Refer to clinic/hospital department documented in this encounter Visit Diagnoses Not on filedocumented in this encounter Additional Health Concerns Infection Onset Date Last Indicated Resolved Time VRE Comment:Urine 10/30/13 Resolved 11/04/2013 11/04/201307/26/ 8 10:33 AM DIRECTOR OF ONLINE MERCHANDISING R/O COVID-19 12/25/2019 12/25/2019 12/26/2019 2:46 PM CDT R/O COVID-19 05/09/2020 05/09/2020 05/09/2020 12:1 7 PM DIRECTOR OF ONLINE MERCHANDISING documented as of this encounter Care Teams Director Of Corporate Sponsorships Relationship Specialty Start Date End Date Dara Tavera FNP [address] [place] [phone] PCP - General NURSE PRACTITIONER 10/13/18 documented as of this encounter
--- OUTSIDE RECORDS SUMMARY | 2025-06-14 20:48 | XMS_ITS | Encounter Summary ---
Author Organization [facility] Address [address] [place] [address] Care Team Providers Care Nutritionist Public Health Name Role Phone Dara Tavera AMANDEEP Primary Care Provider Encounter Details Date Type Department Care Team (Late st Contact Info) Description 06/14/2007 Outpatient Historical [facility] Amaury De La Rosa MD NO ADDRESS ON FILE Richie Vargas Jr., MD [address] [place] [address] Social History Tobacco Use Types Packs/Day Years Used Date Smoking Tobacco: Never Assessed Comments Unknown Sex and Gender Information Value Date Recorded Sex Assigned at Not on file Legal Sex Female 5:22 AM INSPECTOR PURCHASED PARTS Gender Identity Not on file Sexual Orientation Not on file documented as of this encounter Plan of Treatment Not on file documented as of this encounter Procedures Procedure Name Priority Date/Time Associated Diagnosis Comments URINALYSIS W/REFLEX MICROSCOPIC Routine 06/15/2007 12:13 PM INSPECTOR PURCHASED PARTS POC GLUCOSE Routine 06/15/2007 11:42 AM INSPECTOR PURCHASED PARTS POC GLUCOSE Routine 06/15/2007 5:10 AM INSPECTOR PURCHASED PARTS CARDIAC ENZYMES Routine 06/15/2007 4:21 AM INSPECTOR PURCHASED PARTS CBC WITH DIFFERENTIAL Routine 06/15/2007 4:21 AM INSPECTOR PURCHASED PARTS TSH Routine 06/15/2007 4:21 AM INSPECTOR PURCHASED PARTS T4 FREE Routine 06/15/2007 4:21 AM INSPECTOR PURCHASED PARTS LIPID PANEL Routine 06/15/2007 4:21 AM INSPECTOR PURCHASED PARTS COMPREHENSIVE METABOLIC PANEL Routine 06/15/2007 4:21 AM INSPECTOR PURCHASED PARTS POC GLUCOSE Routine 06/15/2007 2:02 AM INSPECTOR PURCHASED PARTS CARDIAC ENZYMES Routine 06/14/2007 10:20 PM INSPECTOR PURCHASED PARTS CARDIAC ENZYMES Routine 06/14/2007 4:07 PM INSPECTOR PURCHASED PARTS CBC WITH DIFFERENTIAL Routine 06/14/2007 4:07 PM INSPECTOR PURCHASED PARTS PTT Routine 06/14/2007 4:07 PM INSPECTOR PURCHASED PARTS PROTIME-INR Routine 06/14/2007 4:07 PM INSPECTOR PURCHASED PARTS BASIC METABOLIC PANEL Routine 06/14/2007 4:07 PM INSPECTOR PURCHASED PARTS documented in this encounter Results * URINALYSIS (06/15/2007 12:13 PM INSPECTOR PURCHASED PARTS) COLOR UA Yellow Straw INTERFACE SYSTEM CLARITY [...] No INTERFACE SYSTEM 06/15/2007 12:1 3 PM INSPECTOR PURCHASED PARTS us Richie Vargas Jr., MD URINE ORDERABLES Edite d INTERFACE SYSTEM Refer to clinic/hospital department * (ABNORMAL) POC GLUCOSE (06/15/2007 11:42 AM INSPECTOR PURCHASED PARTS) GLUCOSE POC 114(H) 60 - 100 mg/dL INTERFACE SYSTEM 06/15/2007 11:4 2 AM INSPECTOR PURCHASED PARTS Result Tracey Vargas Jr., MD POINT OF CARE TESTING Edited Performing Organization Address [facility] Phone Number INTERFACE SYSTEM Refer to clinic/hospital department * (ABNORMAL) POC GLUCOSE (06/15/2007 5:10 AM INSPECTOR PURCHASED PARTS) GLUCOSE POC 116(H) 60 - 100 mg/dL INTERFACE SYSTEM 06/15/2007 5:10 AM INSPECTOR PURCHASED PARTS Result Tracey Vargas Jr., MD POINT OF CARE TESTING Edited Performing Organization Address [facility] Phone Number INTERFACE SYSTEM Refer to clinic/hospital department * TSH (06/15/2007 4:21 AM INSPECTOR PURCHASED PARTS) TSH 1.340 0.350 - 5.500 uIU/ml INTERFACE SYSTEM 06/15/2007 4:21 AM INSPECTOR PURCHASED PARTS Result Tracey Vargas Jr., MD CHEMISTRY ORDERABLES E dited Performing Organization Address [facility] Phone Number INTERFACE SYSTEM Refer to clinic/hospital department * (ABNORMAL) T4 FREE (06/15/2007 4:21 AM INSPECTOR PURCHASED PARTS) T4 FREE 0.64(L) 0.89 - 1.76 ng/dL INTERFACE SYSTEM 06/15/2007 4:21 AM INSPECTOR PURCHASED PARTS Result Tracey Vargas Jr., MD CHEMISTRY ORDERABLES E dited Performing Organization Address [facility] ut Phone Number INTERFACE SYSTEM Refer to clinic/hospital department * (ABNORMAL) LIPID PANEL (06/15/2007 4:21 AM INSPECTOR PURCHASED PARTS) CHOLESTEROL 208(H) 75 - 200 mg/dL INTERFACE SYSTEM HDL 41 40 - 60 mg/dL INTERFACE SYSTEM TRIGLYCERIDE 206(H) 0 - 168 mg/dL INTERFACE SYSTEM CALCULATED LDL CHOLESTEROL 126 0 - 130 mg/dL INTERFACE SYSTEM CALCULATED TOTAL CHOLESTEROL TO HDL RATIO 5.07(H) 3.27 - 4.44 INTERFACE SYSTEM 06/15/2007 4:21 AM INSPECTOR PURCHASED PARTS Richie Vargas Jr., MD CHEMISTRY ORDERABLES E dited Performing Organization Address [facility] Phone Number INTERFACE SYSTEM Refer to clinic/hospital department * (ABNORMAL) COMPREHENSIVE METABOLIC PANEL (06/15/2007 4:21 AM INSPECTOR PURCHASED PARTS) GLUCOSE 94 70 - 110 mg/dL INTERFACE [...] 295 mOsm/Kg INTERFACE SYSTEM 06/15/2007 4:21 AM INSPECTOR PURCHASED PARTS Richie Vargas Jr., MD CHEMISTRY ORDERABLES E dited Performing Organization Address [facility] Phone Number INTERFACE SYSTEM Refer to clinic/hospital department * (ABNORMAL) CBC WITH DIFFERENTIAL (06/15/2007 4:21 AM INSPECTOR PURCHASED PARTS) WBC 13.1(H) 4.5 - 11.0 K/ul INTERFACE [...] 0.2 K/ul INTERFACE SYSTEM 06/15/2007 4:21 AM INSPECTOR PURCHASED PARTS Richie Vargas Jr., MD HEMATOLOGY ORDERABLES Edited Performing Organization Address [facility] de Phone Number INTERFACE SYSTEM Refer to clinic/hospital department * CARDIAC ENZYMES (06/15/2007 4:21 AM INSPECTOR PURCHASED PARTS) TROPONIN I <0.1 0.0 - 1.3 ng/mL INTERFACE SYSTEM CKMB 1.0 0.0 - 5.0 ng/mL INTERFACE SYSTEM 06/15/2007 4:21 AM INSPECTOR PURCHASED PARTS Amaury De La Rosa MD CHEMISTRY ORDERABLES Edited Performing Organization Address [facility]/ZIP Co de Phone Number INTERFACE SYSTEM Refer to clinic/hospital department * (ABNORMAL) POC GLUCOSE (06/15/2007 2:02 AM INSPECTOR PURCHASED PARTS) GLUCOSE POC 115(H) 60 - 100 mg/dL INTERFACE SYSTEM 06/15/2007 2:02 AM INSPECTOR PURCHASED PARTS us Richie Vargas Jr., MD POINT OF CARE TESTING Edited Performing Organization Address [facility] Phone Number INTERFACE SYSTEM Refer to clinic/hospital department * CARDIAC ENZYMES (06/14/2007 10:20 PM INSPECTOR PURCHASED PARTS) TROPONIN I <0.1 0.0 - 1.3 ng/mL INTERFACE SYSTEM CKMB 0.3 0.0 - 5.0 ng/mL INTERFACE SYSTEM 06/14/2007 10:2 0 PM INSPECTOR PURCHASED PARTS Amaury De La Rosa MD CHEMISTRY ORDERABLES Edited Performing Organization Address [facility] Phone Number INTERFACE SYSTEM Refer to clinic/hospital department * (ABNORMAL) CBC WITH DIFFERENTIAL (06/14/2007 4:07 PM INSPECTOR PURCHASED PARTS) WBC 14.3(H) 4.5 - 11.0 K/ul INTERFACE [...] 0.2 K/ul INTERFACE SYSTEM 06/14/2007 4:07 PM INSPECTOR PURCHASED PARTS Amaury De La Rosa MD HEMATOLOGY ORDERABLES Edited Performing Organization Address [facility] Phone Number INTERFACE SYSTEM Refer to clinic/hospital department * PTT (06/14/2007 4:07 PM INSPECTOR PURCHASED PARTS) PTT 34.4 21.6 - 35.6 Secs INTERFACE SYSTEM 06/14/2007 4:07 PM INSPECTOR PURCHASED PARTS Amaury De La Rosa MD HEMATOLOGY ORDERABLES Edited Performing Organization Address [facility] Phone Number INTERFACE SYSTEM Refer to clinic/hospital department * PROTIME-INR (06/14/2007 4:07 PM INSPECTOR PURCHASED PARTS) Pathologist [facility] PROTIME 14.0 13.0 - 15.7 Secs INTERFACE SYSTEM INR 1.0 INTERFACE SYSTEM 06/14/2007 4:07 PM INSPECTOR PURCHASED PARTS Amaury De La Rosa MD HEMATOLOGY ORDERABLES Edited Performing Organization Address [facility] Phone Number INTERFACE SYSTEM Refer to clinic/hospital department * (ABNORMAL) BASIC METABOLIC PANEL (06/14/2007 4:07 PM INSPECTOR PURCHASED PARTS) GLUCOSE 90 70 - 110 mg/dL INTERFACE [...] 295 mOsm/Kg INTERFACE SYSTEM 06/14/2007 4:07 PM INSPECTOR PURCHASED PARTS Amaury De La Rosa MD CHEMISTRY ORDERABLES Edited Performing Organization Address [facility] de Phone Number INTERFACE SYSTEM Refer to clinic/hospital department * CARDIAC ENZYMES (06/14/2007 4:07 PM INSPECTOR PURCHASED PARTS) TROPONIN I <0.1 0.0 - 1.3 ng/mL INTERFACE SYSTEM CKMB 1.3 0.0 - 5.0 ng/mL INTERFACE SYSTEM 06/14/2007 4:07 PM INSPECTOR PURCHASED PARTS Amaury De La Rosa MD CHEMISTRY ORDERABLES Edited Performing Organization Address [facility] Phone Number INTERFACE SYSTEM Refer to clinic/hospital department documented in this encounter Visit Diagnoses Not on filedocumented in this encounter Additional Health Concerns Infection Onset Date Last Indicated Resolved Time VRE Comment:Urine 10/30/13 Resolved 11/04/2013 11/04/2013 8 10:33 AM INSPECTOR PURCHASED PARTS R/O COVID-19 12/25/2019 12/25/2019 12/26/2019 2:46 PM CDT R/O COVID-19 05/09/2020 05/09/2020 05/09/2020 12:1 7 PM INSPECTOR PURCHASED PARTS documented as of this encounter Care Teams Nutritionist Public Health Relationship Specialty Start Date End Date Dara Tavera FNP [address] [place] [phone] PCP - General NURSE PRACTITIONER 10/13/18 documented as of this encounter
--- OUTSIDE RECORDS SUMMARY | 2025-06-14 20:48 | XMS_ITS | Encounter Summary ---
Author Organization [facility] Address [address] [place] [address] Care Team Providers Care Diet Technician Registered Name Role Phone Dara Tavera Primary Care Provider Encounter Details Date Type Department Care Team (Late st Contact Info) Description 04/07/2008 Outpatient Historical [facility] [address] [place] [address] AMBULANCE, [facility] Social History Tobacco Use Types Packs/Day Years Used Date Smoking Tobacco: Never Assessed Comments Unknown Sex and Gender Information Value Date Recorded Sex Assigned at Not on file Legal Sex Female 5:22 AM AGRICULTURAL SERVICES DIRECTOR Gender Identity Not on file Sexual Orientation Not on file documented as of this encounter Plan of Treatment Not on file documented as of this encounter Visit Diagnoses Not on filedocumented in this encounter Additional Health Concerns Infection Onset Date Last Indicated Resolved Time VRE Comment:Urine 10/30/13 Resolved 11/04/2013 11/04/2013 8 10:33 AM AGRICULTURAL SERVICES DIRECTOR R/O COVID-19 12/25/2019 12/25/2019 12/26/2019 2:46 PM CDT R/O COVID-19 05/09/2020 05/09/2020 05/09/2020 12:1 7 PM AGRICULTURAL SERVICES DIRECTOR documented as of this encounter Care Teams Diet Technician Registered Relationship Specialty Start Date End Date Dara Tavera FNP [address] [place] [phone] PCP - General NURSE PRACTITIONER 10/13/18 documented as of this encounter
--- OUTSIDE RECORDS SUMMARY | 2025-06-14 20:48 | XMS_ITS | Encounter Summary ---
Author Organization [facility] Address [address] [place] [address] Care Team Providers Care Ct Scan Special Procedures Technologist Name Role Phone Dara Tavera AMANDEEP Primary Care Provider Encounter Details Date Type Department Care Team (Latest Contact Info) Description 04/22/2008 Outpatient Historical [facility] [address] [place] [address] AMBULANCE, [facility] Aphasia; Unspecified Tachycardia; Chronic Airway Obstruction, not [...] on file Legal Sex Female 5:22 AM DROP CREW LABORER Gender Identity Not on file Sexual [...] Resolved Time VRE Comment:Urine 10/30/13 Resolved 11/04/2013 11/04/2013201 8 10:33 AM DROP CREW LABORER R/O COVID-19 12/25/2019 12/25/201912/2512/26/2019 2:46 PM CDT R/O COVID-19 05/09/2020 05/09/2020 05/09/2020 12:1 7 PM DROP CREW LABORER documented as of this encounter Care Teams Ct Scan Special Procedures Technologist Relationship Specialty Start Date End Date Dara Tavera FNP [address] [place] [phone] PCP - General NURSE PRACTITIONER 10/13/18 documented as of this encounter
--- OUTSIDE RECORDS SUMMARY | 2025-06-14 20:48 | XMS_ITS | Encounter Summary ---
Author Organization [facility] Address [address] [place] [address] Care Team Providers Care Car Repairman Name Role Phone Dara Tavera AMANDEEP Primary Care Provider Encounter Details Date Type Department Care Team (Late st Contact Info) Description 06/03/2007 Emergency [facility] Emergency Department [address] [place] [address] Ed, Physician NO ADDRESS ON FILE Oniel Sainz MD [address] [place] [address] Social History Tobacco Use Types Packs/Day Years Used Date Smoking Tobacco: Never Assessed Comments Unknown Sex and Gender Information Value Date Recorded Sex Assigned at Not on file Legal Sex Female 5:22 AM BRAILLE DUPLICATING MACHINE OPERATOR Gender Identity Not on file Sexual Orientation Not on file documented as of this encounter Plan of Treatment Not on file documented as of this encounter Procedures Procedure Name Priority Date/Time Associated Diagnosis Comments CBC WITH DIFFERENTIAL Routine 06/03/2007 9:39 PM BRAILLE DUPLICATING MACHINE OPERATOR COMPREHENSIVE METABOLIC PANEL Routine 06/03/2007 9:39 PM BRAILLE DUPLICATING MACHINE OPERATOR URINALYSIS W/REFLEX MICROSCOPIC Routine 06/03/2007 9:26 PM BRAILLE DUPLICATING MACHINE OPERATOR documented in this encounter Results * (ABNORMAL) COMPREHENSIVE METABOLIC PANEL (06/03/2007 9:39 PM BRAILLE DUPLICATING MACHINE OPERATOR) GLUCOSE 97 70 - 110 mg/dL INTERFACE [...] 295 mOsm/Kg INTERFACE SYSTEM 06/03/2007 9:39 PM BRAILLE DUPLICATING MACHINE OPERATOR us Oniel Sainz MD CHEMISTRY ORDERABLES Edited INTERFACE SYSTEM Refer to clinic/hospital department * (ABNORMAL) CBC WITH DIFFERENTIAL (06/03/2007 9:39 PM BRAILLE DUPLICATING MACHINE OPERATOR) Pathologist [facility] WBC 9.5 4.5 - [...] 0.2 K/ul INTERFACE SYSTEM 06/03/2007 9:39 PM BRAILLE DUPLICATING MACHINE OPERATOR Oniel Sainz MD HEMATOLOGY ORDERABLES Edited Performing Organization Address [facility] de Phone Number INTERFACE SYSTEM Refer to clinic/hospital department * URINALYSIS (06/03/2007 9:26 PM BRAILLE DUPLICATING MACHINE OPERATOR) COLOR UA Yellow Straw INTERFACE [...] No No INTERFACE SYSTEM 06/03/2007 9:26 PM BRAILLE DUPLICATING MACHINE OPERATOR Oniel Sainz MD URINE ORDERABLES Edited Performing Organization Address [facility] Co de Phone Number INTERFACE SYSTEM Refer to clinic/hospital department documented in this encounter Visit Diagnoses Not on filedocumented in this encounter Additional Health Concerns Infection Onset Date Last Indicated Resolved Time VRE Comment:Urine 10/30/13 Resolved 11/04/2013 11/04/2013 8 10:33 AM BRAILLE DUPLICATING MACHINE OPERATOR R/O COVID-19 12/25/2019 12/25/2019 12/26/2019 2:46 PM CDT R/O COVID-19 05/09/2020 05/09/2020 05/09/2020 12:1 7 PM BRAILLE DUPLICATING MACHINE OPERATOR documented as of this encounter Care Teams Car Repairman Relationship Specialty Start Date End Date Dara Tavera FNP [address] [place] [address] PCP - General NURSE PRACTITIONER 10/13/18 documented as of this encounter
--- OUTSIDE RECORDS SUMMARY | 2025-06-14 20:48 | XMS_ITS | Encounter Summary ---
Author Organization [facility] Address [address] [place] [address] Care Team Providers Care Gold Leaf Layer Name Role Phone Dara Tavera AMANDEEP Primary Care Provider [phone] Encounter Details Date Type Department Care Team (Late st Contact Info) Description 04/04/2007 Emergency [facility] Emergency Department [address] [place] [address] Thiago Mota MD NO ADDRESS ON FILE Painful Respiration (Primary Dx) Social History Tobacco Use Types Packs/Day Years Used Date Smoking Tobacco: Never Assessed Comments Unknown Sex and Gender Information Value Date Recorded Sex Assigned at Not on file Legal Sex Female 5:22 AM HR OPERATIONS ADVISOR Gender Identity Not on file Sexual [...] ORDERABLES Edited Performing Organization Address [facility] Phone Number INTERFACE SYSTEM Refer to clinic/hospital department * CARDIAC ENZYMES (04/04/2007 12:00 PM CDT) Pathologist [facility] TROPONIN I <0.1 0.0 - 1.3 ng/mL INTERFACE SYSTEM Comment: As of 06 the Troponin Reference Range has changed from 0.0-1.5 ng/ml to 0.0- 1.3 ng/ml due to a change in testing methodology. 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
--- OUTSIDE RECORDS SUMMARY | 2025-06-14 20:48 | XMS_ITS | Encounter Summary ---
Author Organization [facility] Address [address] [place] [address] Care Team Providers Care Auto Crane Driver Name Role Phone Dara Tavera Primary Care Provider [phone] Encounter Details Date Type Department Care Team (Latest Contact Info) Description 08/21/2005 Outpatient [facility] [address] [place] [address] AMBULANCE, [facility] DISRUPT OF EXTERNAL OPERATION WOUND (Primary Dx) Social History Tobacco Use Types Packs/Day Years Used Date Smoking Tobacco: Never Assessed Comments Unknown Sex and Gender Information Value Date Recorded Sex Assigned at Not on file Legal Sex Female 5:22 AM CLINICAL EDUCATION COORDINATOR Gender Identity Not on file Sexual Orientation Not on file documented as of this encounter Plan of Treatment Not on file documented as of this encounter Visit Diagnoses Diagnosis Disruption of external operation (surgical) wound- Primary documented in this encounter Additional Health Concerns Infection Onset Date Last Indicated Resolved Time VRE Comment:Urine 10/30/13 Resolved 11/04/2013 11/04/2013 8 10:33 AM CLINICAL EDUCATION COORDINATOR R/O COVID-19 12/25/2019 12/25/2019 12/26/2019 2:46 PM CDT R/O COVID-19 05/09/2020 05/09/2020 05/09/2020 12:1 7 PM CLINICAL EDUCATION COORDINATOR documented as of this encounter Care Teams Auto Crane Driver Relationship Specialty Start Date End Date Dara Tavera FNP [address] [place] [phone] PCP - General NURSE PRACTITIONER 10/13/18 documented as of this encounter
--- OUTSIDE RECORDS SUMMARY | 2025-06-14 20:48 | XMS_ITS | Encounter Summary ---
Author Organization [facility] Address [address] [place] [address] Care Team Providers Care Surgical Processor Name Role Phone AyseDara saldaña AMANDEEP Primary Care Provider Encounter Details Date Type Department Care Team (Latest Contact Info) Description 12/16/2005 Outpatient Historical [facility] Family Medicine- [address] [place] [phone] Ryan Don NP NO ADDRESS ON FILE Abdominal Pain, Unspecified Site (Primary Dx); Other Specified Disease of White Blood Cells; Cellulitis and Abscess of Unspecified Site; Nausea with Vomiting Social History Tobacco Use Types Packs/Day Years Used Date Smoking Tobacco: Never Assessed Comments Unknown Sex and Gender Information Value Date Recorded Sex Assigned at Not on file Legal Sex Female 5:22 AM FARE REGISTER REPAIRER Gender Identity Not on file Sexual [...] 10/30/13 Resolved 11/04/2013 11/04/2013 8 10:33 AM FARE REGISTER REPAIRER R/O COVID-19 12/25/2019 12/25/2019 12/26/2019 2:46 PM CDT R/O COVID-19 05/09/2020 05/09/2020 05/09/2020 12:1 7 PM FARE REGISTER REPAIRER documented as of this encounter Care Teams Surgical Processor Relationship Specialty Start Date End Date Dara Tavera FNP [address] [place] [phone] PCP - General NURSE PRACTITIONER 10/13/18 documented as of this encounter
--- OUTSIDE RECORDS SUMMARY | 2025-06-14 20:48 | XMS_ITS | Encounter Summary ---
Author Organization [facility] Address [address] [place] [address] Care Team Providers Care Speeder Machine Operator Name Role Phone Dara Tavera AMANDEEP Primary Care Provider Encounter Details Date Type Department Care Team (Latest Contact Info) Description 02/20/2008 Outpatient Historical [facility] [address] [place] [address] AMBULANCE, [facility] Hemorrhage of Rectum and Anus; [...] on file Legal Sex Female 5:22 AM STRUCTURAL STEEL FITTER Gender Identity Not on file Sexual [...] 10/30/13 Resolved 11/04/2013 11/04/2013 8 10:33 AM STRUCTURAL STEEL FITTER R/O COVID-19 12/25/2019 12/25/2019 12/26/2019 2:46 PM CDT R/O COVID-19 05/09/2020 05/09/2020 05/09/2020 12:1 7 PM STRUCTURAL STEEL FITTER documented as of this encounter Care Teams Speeder Machine Operator Relationship Specialty Start Date End Date Dara Tavera FNP [address] [place] [address] PCP - General NURSE PRACTITIONER 10/13/18 documented as of this encounter
--- OUTSIDE RECORDS SUMMARY | 2025-06-14 20:48 | XMS_ITS | Encounter Summary ---
Author Organization [facility] Address [address] [place] [address] Care Team Providers Care House Officer Name Role Phone Dara Tavera AMANDEEP Primary Care Provider Encounter Details Date Type Department Care Team (Late st Contact Info) Description 05/14/2007 Emergency [facility] Emergency Department [address] [place] [address] Kurt Nassar MD [address] [place] [address] Abdominal Pain, Unspecified Site (Primary Dx) Social History Tobacco Use Types Packs/Day Years Used Date Smoking Tobacco: Never Assessed Comments Unknown Sex and Gender Information Value Date Recorded Sex Assigned at Not on file Legal Sex Female 5:22 AM ASSEMBLY MANAGER Gender Identity Not on file Sexual Orientation Not on file documented as of this encounter Plan of Treatment Not on file documented as of this encounter Procedures Procedure Name Priority Date/Time Associated Diagnosis Comments URINALYSIS W/REFLEX MICROSCOPIC Routine 05/14/2007 12:20 PM ASSEMBLY MANAGER CBC WITH DIFFERENTIAL Routine 05/14/2007 11:37 AM ASSEMBLY MANAGER LIPASE Routine 05/14/2007 11:37 AM ASSEMBLY MANAGER AMYLASE Routine 05/14/2007 11:37 AM ASSEMBLY MANAGER COMPREHENSIVE METABOLIC PANEL Routine 05/14/2007 11:37 AM ASSEMBLY MANAGER documented in this encounter Results * URINALYSIS (05/14/2007 12:20 PM ASSEMBLY MANAGER) COLOR UA Yellow Straw INTERFACE SYSTEM [...] No INTERFACE SYSTEM 05/14/2007 12:2 0 PM ASSEMBLY MANAGER Result [facility] Kurt Nassar MD URINE ORDERABLES Edited Performing Organization Address City/[facility] Co de Phone Number INTERFACE SYSTEM Refer to clinic/hospital department * AMYLASE (05/14/2007 11:37 AM ASSEMBLY MANAGER) AMYLASE 46 20 - 104 U/L INTERFACE SYSTEM 05/14/2007 11:3 7 AM ASSEMBLY MANAGER Result [facility] Kurt Nassar MD CHEMISTRY ORDERABLES Edite d Performing Organization Address City/[facility] Co de Phone Number INTERFACE SYSTEM Refer to clinic/hospital department * LIPASE (05/14/2007 11:37 AM ASSEMBLY MANAGER) LIPASE 30 6 - 51 U/L INTERFACE SYSTEM 05/14/2007 11:3 7 AM ASSEMBLY MANAGER Kurt Nassar MD CHEMISTRY ORDERABLES Edite d Performing Organization Address City/[facility] Co de Phone Number INTERFACE SYSTEM Refer to clinic/hospital department * (ABNORMAL) COMPREHENSIVE METABOLIC PANEL (05/14/2007 11:37 AM ASSEMBLY MANAGER) GLUCOSE 104 70 - 110 mg/dL [...] mOsm/Kg INTERFACE SYSTEM 05/14/2007 11:3 7 AM ASSEMBLY MANAGER us Kurt Nassar MD CHEMISTRY ORDERABLES Edite d INTERFACE SYSTEM Refer to clinic/hospital department * (ABNORMAL) CBC WITH DIFFERENTIAL (05/14/2007 11:37 AM ASSEMBLY MANAGER) WBC 12.6(H) 4.5 - 11.0 K/ul [...] K/ul INTERFACE SYSTEM 05/14/2007 11:3 7 AM ASSEMBLY MANAGER us Kurt Nassar MD HEMATOLOGY ORDERABLES Edit ed INTERFACE SYSTEM Refer to clinic/hospital department documented in this encounter Visit Diagnoses Diagnosis Abdominal pain, unspecified site- Primary documented in this encounter Additional Health Concerns Infection Onset Date Last Indicated Resolved Time VRE Comment:Urine 10/30/13 Resolved 11/04/2013 11/04/2013 8 10:33 AM ASSEMBLY MANAGER R/O COVID-19 12/25/2019 12/25/2019 12/26/2019 2:46 PM CDT R/O COVID-19 05/09/2020 05/09/2020 05/09/2020 12:1 7 PM ASSEMBLY MANAGER documented as of this encounter Care Teams House Officer Relationship Specialty Start Date End Date Dara Tavera FNP [address] [place] [phone] PCP - General NURSE PRACTITIONER 10/13/18 documented as of this encounter
--- OUTSIDE RECORDS SUMMARY | 2025-06-14 20:48 | XMS_ITS | Encounter Summary ---
Author Organization [facility] Address [address] [place] [address] Care Team Providers Care Reactor Fueling Supervisor Name Role Phone Dara Tavera AMANDEEP Primary Care Provider Encounter Details Date Type Department Care Team (Latest Contact Info) Description 04/20/2008 Outpatient Historical [facility] [address] [place] [address] AMBULANCE, [facility] Other Specified Cardiac Dysrhythmias; Unspecified Nonpsychotic Mental [...] documented as of this encounter Care Teams Reactor Fueling Supervisor Relationship Specialty Start Date End Date Dara Tavera FNP [address] [place] [phone] PCP - General NURSE PRACTITIONER 10/13/18 documented as of this encounter
--- OUTSIDE RECORDS SUMMARY | 2025-06-14 20:48 | XMS_ITS | Encounter Summary ---
Author Organization [facility] Address [address] [place] [address] Care Team Providers Care Bait Tier Name Role Phone Dara Tavera Primary Care Provider Encounter Details Date Type Department Care Team (Latest Contact Info) Description 05/10/2008 Outpatient Historical [facility] [address] [place] [address] AMBULANCE, [facility] Other Malaise and Fatigue; Other Speech Disturbance; Unspecified Abnormal Pupillary Function; Esophageal Reflux; Encounter for Long-Term (Current) Use of Other Medications Social History Tobacco Use Types Packs/Day Years Used Date Smoking Tobacco: Never Assessed Comments Unknown Sex and Gender Information Value Date Recorded Sex Assigned at Not on file Legal Sex Female 5:22 AM GLASSWORKER Gender Identity Not on file Sexual Orientation [...] 10/30/13 Resolved 11/04/2013 11/04/2013 8 10:33 AM GLASSWORKER R/O COVID-19 12/25/2019 12/25/2019 12/26/2019 2:46 PM CDT R/O COVID-19 05/09/2020 05/09/2020 05/09/2020 12:1 7 PM GLASSWORKER documented as of this encounter Care Teams Bait Tier Relationship Specialty Start Date End Date Dara Tavera FNP [address] [place] [phone] PCP - General NURSE PRACTITIONER 10/13/18 documented as of this encounter
--- OUTSIDE RECORDS SUMMARY | 2025-06-14 20:48 | XMS_ITS | Encounter Summary ---
Author Organization [facility] Address [address] [place] [address] Care Team Providers Care Warping Mill Operator Name Role Phone Dara Tavera AMANDEEP Primary Care Provider Encounter Details Date Type Department Care Team (Late st Contact Info) Description 05/21/2007 Emergency [facility] Emergency Department [address] [place] [address] Ed, Physician NO ADDRESS ON FILE Rory Lynn MD NO ADDRESS ON FILE Social History Tobacco Use Types Packs/Day Years Used Date Smoking Tobacco: Never Assessed Comments Unknown Sex and Gender Information Value Date Recorded Sex Assigned at Not on file Legal Sex Female 5:22 AM BEARING MACHINE OPERATOR Gender Identity Not on file Sexual Orientation Not on file documented as of this encounter Plan of Treatment Not on file documented as of this encounter Procedures Procedure Name Priority Date/Time Associated Diagnosis Comments CBC WITH DIFFERENTIAL Routine 05/21/2007 6:18 PM BEARING MACHINE OPERATOR documented in this encounter Results * (ABNORMAL) CBC WITH DIFFERENTIAL (05/21/2007 6:18 PM BEARING MACHINE OPERATOR) WBC 9.5 4.5 - 11.0 K/ul INTERFACE [...] 0.2 K/ul INTERFACE SYSTEM 05/21/2007 6:18 PM BEARING MACHINE OPERATOR us Rory Lynn MD HEMATOLOGY ORDERABLES H[place] earl INTERFACE SYSTEM Refer to clinic/hospital department documented in this encounter Visit Diagnoses Not on filedocumented in this encounter Additional Health Concerns Infection Onset Date Last Indicated Resolved Time VRE Comment:Urine 10/30/13 Resolved 11/04/2013 11/04/2013 8 10:33 AM BEARING MACHINE OPERATOR R/O COVID-19 12/25/2019 12/25/2019 12/26/2019 2:46 PM CDT R/O COVID-19 05/09/2020 05/09/2020 05/09/2020 12:1 7 PM BEARING MACHINE OPERATOR documented as of this encounter Care Teams Warping Mill Operator Relationship Specialty Start Date End Date Dara Tavera FNP [address] [place] [phone] PCP - General NURSE PRACTITIONER 10/13/18 documented as of this encounter
--- OUTSIDE RECORDS SUMMARY | 2025-06-14 20:48 | XMS_ITS | Encounter Summary ---
Author Organization [facility] Address [address] [place] [address] Care Team Providers Care Trouble Dispatcher Name Role Phone Dara Tavera Primary Care Provider Encounter Details Date Type Department Care Team (Latest Contact Info) Description 08/31/2005 Outpatient Historical [facility] [address] [place] [address] AMBULANCE, [facility] Other Injury of Abdomen (Primary Dx) Social History Tobacco Use Types Packs/Day Years Used Date Smoking Tobacco: Never Assessed Comments Unknown Sex and Gender Information Value Date Recorded Sex Assigned at Not on file Legal Sex Female 5:22 AM PIZZA DELIVERY Gender Identity Not on file Sexual Orientation Not on file documented as of this encounter Plan of Treatment Not on file documented as of this encounter Visit Diagnoses Diagnosis Other injury of abdomen- Primary documented in this encounter Additional Health Concerns Infection Onset Date Last Indicated Resolved Time VRE Comment:Urine 10/30/13 Resolved 11/04/2013 11/04/2013 8 10:33 AM PIZZA DELIVERY R/O COVID-19 12/25/2019 12/25/2019 12/26/2019 2:46 PM CDT R/O COVID-19 05/09/2020 05/09/2020 05/09/2020 12:1 7 PM PIZZA DELIVERY documented as of this encounter Care Teams Trouble Dispatcher Relationship Specialty Start Date End Date Dara Tavera FNP [address] [place] [phone] PCP - General NURSE PRACTITIONER 10/13/18 documented as of this encounter
--- OUTSIDE RECORDS SUMMARY | 2025-06-14 20:48 | XMS_ITS | Encounter Summary ---
Author Organization [facility] Address [address] [place] [address] Care Team Providers Care Help Desk Manager Name Role Phone Dara Tavera Primary Care Provider Encounter Details Date Type Department Care Team (Latest Contact Info) Description 10/09/2005 Outpatient Historical [facility] [address] [place] [address] AMBULANCE, [facility] Unspecified Nonpsychotic Mental Disorder (Primary Dx) Social History Tobacco Use Types Packs/Day Years Used Date Smoking Tobacco: Never Assessed Comments Unknown Sex and Gender Information Value Date Recorded Sex Assigned at Not on file Legal Sex Female 5:22 AM SMOKING PIPE REPAIRER Gender Identity Not on file Sexual Orientation Not on file documented as of this encounter Plan of Treatment Not on file documented as of this encounter Visit Diagnoses Diagnosis Unspecified nonpsychotic mental disorder- Primary documented in this encounter Additional Health Concerns Infection Onset Date Last Indicated Resolved Time VRE Comment:Urine 10/30/13 Resolved 11/04/2013 11/04/2013 8 10:33 AM SMOKING PIPE REPAIRER R/O COVID-19 12/25/2019 12/25/2019 12/26/2019 2:46 PM CDT R/O COVID-19 05/09/2020 05/09/2020 05/09/2020 12:1 7 PM SMOKING PIPE REPAIRER documented as of this encounter Care Teams Help Desk Manager Relationship Specialty Start Date End Date Dara Tavera FNP [address] [place] [phone] PCP - General NURSE PRACTITIONER 10/13/18 documented as of this encounter
--- OUTSIDE RECORDS SUMMARY | 2025-06-14 20:48 | XMS_ITS | Encounter Summary ---
Author Organization [facility] Address [address] [place] [address] Care Team Providers Care Wire Machine Cutter Name Role Phone Dara Tavera SCUBA DIVE TRAINING INSTRUCTOR Primary Care Provider Encounter Details Date Type Department Care Team (Late st Contact Info) Description 06/17/2007 Outpatient Historical [facility] Sammi Justice MD [address] [place] [address] Murphy Espitia MD NO ADDRESS [...] file Legal Sex Female 5:22 AM DIESEL TECHNICIAN MECHANIC Gender Identity Not on file Sexual Orientation Not on file documented as of this encounter Plan of Treatment Not on file documented as of this encounter Procedures Procedure Name Priority Date/Time Associated Diagnosis Comments CBC WITH DIFFERENTIAL Routine 06/20/2007 4:40 AM DIESEL TECHNICIAN MECHANIC BASIC METABOLIC PANEL Routine 06/20/2007 4:40 AM DIESEL TECHNICIAN MECHANIC URINALYSIS W/REFLEX MICROSCOPIC Routine 06/19/2007 5:59 AM DIESEL TECHNICIAN MECHANIC CARDIAC ENZYMES Routine 06/18/2007 7:40 AM DIESEL TECHNICIAN MECHANIC CARDIAC ENZYMES Routine 06/18/2007 1:45 AM DIESEL TECHNICIAN MECHANIC CBC WITH DIFFERENTIAL Routine 06/18/2007 1:45 AM DIESEL TECHNICIAN MECHANIC TSH Routine 06/18/2007 1:45 AM DIESEL TECHNICIAN MECHANIC COMPREHENSIVE METABOLIC PANEL Routine 06/18/2007 1:45 AM DIESEL TECHNICIAN MECHANIC PT AND APTT Routine 06/17/2007 7:50 PM DIESEL TECHNICIAN MECHANIC CARDIAC ENZYMES Routine 06/17/2007 7:50 PM DIESEL TECHNICIAN MECHANIC CBC WITH DIFFERENTIAL Routine 06/17/2007 7:50 PM DIESEL TECHNICIAN MECHANIC BRAIN NATRIURETIC PEPTIDE, BNP OR PROBNP Routine 06/17/2007 7:50 PM DIESEL TECHNICIAN MECHANIC BASIC METABOLIC PANEL Routine 06/17/2007 7:50 PM DIESEL TECHNICIAN MECHANIC POC BLOOD GAS, LYTES AND H+H Routine 06/17/2007 6:48 PM DIESEL TECHNICIAN MECHANIC documented in this encounter Results * BASIC METABOLIC PANEL (06/20/2007 4:40 AM DIESEL TECHNICIAN MECHANIC) GLUCOSE 99 70 - 110 mg/dL [...] 295 mOsm/Kg INTERFACE SYSTEM 06/20/2007 4:40 AM DIESEL TECHNICIAN MECHANIC us Murphy Espitia MD CHEMISTRY ORDERABLES Edited INTERFACE SYSTEM Refer to clinic/hospital department * (ABNORMAL) CBC WITH DIFFERENTIAL (06/20/2007 4:40 AM DIESEL TECHNICIAN MECHANIC) WBC 10.6 4.5 - 11.0 K/ul [...] 0.2 K/ul INTERFACE SYSTEM 06/20/2007 4:40 AM DIESEL TECHNICIAN MECHANIC us Murphy Espitia MD HEMATOLOGY ORDERABLES Edited INTERFACE SYSTEM Refer to clinic/hospital department * URINALYSIS (06/19/2007 5:59 AM DIESEL TECHNICIAN MECHANIC) COLOR UA Yellow Straw INTERFACE SYSTEM [...] No No INTERFACE SYSTEM 06/19/2007 5:59 AM DIESEL TECHNICIAN MECHANIC Murphy Espitia MD URINE ORDERABLES Edited Performing Organization Address [facility] Phone Number INTERFACE SYSTEM Refer to clinic/hospital department * CARDIAC ENZYMES (06/18/2007 7:40 AM DIESEL TECHNICIAN MECHANIC) TROPONIN I <0.1 0.0 - 1.3 ng/mL INTERFACE SYSTEM CKMB 1.9 0.0 - 5.0 ng/mL INTERFACE SYSTEM 06/18/2007 7:40 AM DIESEL TECHNICIAN MECHANIC Sammi Justice MD CHEMISTRY ORDERABLES Edited Performing Organization Address [facility] Phone Number INTERFACE SYSTEM Refer to clinic/hospital department * TSH (06/18/2007 1:45 AM DIESEL TECHNICIAN MECHANIC) TSH 0.530 0.350 - 5.500 uIU/ml INTERFACE SYSTEM 06/18/2007 1:45 AM DIESEL TECHNICIAN MECHANIC Murphy Espitia MD CHEMISTRY ORDERABLES Edited Performing Organization Address [facility] Phone Number INTERFACE SYSTEM Refer to clinic/hospital department * (ABNORMAL) COMPREHENSIVE METABOLIC PANEL (06/18/2007 1:45 AM DIESEL TECHNICIAN MECHANIC) GLUCOSE 227(H) 70 - 110 mg/dL [...] 295 mOsm/Kg INTERFACE SYSTEM 06/18/2007 1:45 AM DIESEL TECHNICIAN MECHANIC us Murphy Espitia MD CHEMISTRY ORDERABLES Edited INTERFACE SYSTEM Refer to clinic/hospital department * (ABNORMAL) CBC WITH DIFFERENTIAL (06/18/2007 1:45 AM DIESEL TECHNICIAN MECHANIC) WBC 22.9(H) 4.5 - 11.0 K/ul [...] 0.2 K/ul INTERFACE SYSTEM 06/18/2007 1:45 AM DIESEL TECHNICIAN MECHANIC Murphy Espitia MD HEMATOLOGY ORDERABLES Edited Performing Organization Address [facility] Phone Number INTERFACE SYSTEM Refer to clinic/hospital department * CARDIAC ENZYMES (06/18/2007 1:45 AM DIESEL TECHNICIAN MECHANIC) TROPONIN I <0.1 0.0 - 1.3 ng/mL INTERFACE SYSTEM CKMB 1.7 0.0 - 5.0 ng/mL INTERFACE SYSTEM 06/18/2007 1:45 AM DIESEL TECHNICIAN MECHANIC Sammi Justice MD CHEMISTRY ORDERABLES Edited Performing Organization Address [facility] Phone Number INTERFACE SYSTEM Refer to clinic/hospital department * (ABNORMAL) BRAIN NATRIURETIC PEPTIDE, BNP OR PROBNP (06/17/2007 7:50 PM DIESEL TECHNICIAN MECHANIC) BRAIN NATRIURETIC PEPTIDE 211(H) 0 - 125 pg/mL INTERFACE SYSTEM 06/17/2007 7:50 PM DIESEL TECHNICIAN MECHANIC Sammi Justice MD CHEMISTRY ORDERABLES Edited Performing Organization Address [facility] Phone Number INTERFACE SYSTEM Refer to clinic/hospital department * PT AND APTT (06/17/2007 7:50 PM DIESEL TECHNICIAN MECHANIC) PROTIME 14.4 12.8 - 15.8 Secs INTERFACE SYSTEM INR 1.0 INTERFACE SYSTEM PTT 34.9 21.6 - 35.6 Secs INTERFACE SYSTEM 06/17/2007 7:50 PM DIESEL TECHNICIAN MECHANIC us Sammi Justice MD HEMATOLOGY ORDERABLES Edite d Performing Organization Address [facility] Phone Number INTERFACE SYSTEM Refer to clinic/hospital department * CARDIAC ENZYMES (06/17/2007 7:50 PM DIESEL TECHNICIAN MECHANIC) TROPONIN I <0.1 0.0 - 1.3 ng/mL INTERFACE SYSTEM CKMB 2.7 0.0 - 5.0 ng/mL INTERFACE SYSTEM 06/17/2007 7:50 PM DIESEL TECHNICIAN MECHANIC Sammi Justice MD CHEMISTRY ORDERABLES Edited Performing Organization Address [facility] Phone Number INTERFACE SYSTEM Refer to clinic/hospital department * (ABNORMAL) BASIC METABOLIC PANEL (06/17/2007 7:50 PM DIESEL TECHNICIAN MECHANIC) GLUCOSE 143(H) 70 - 110 mg/dL [...] 295 mOsm/Kg INTERFACE SYSTEM 06/17/2007 7:50 PM DIESEL TECHNICIAN MECHANIC Sammi Justice MD CHEMISTRY ORDERABLES Edited Performing Organization Address [facility] Phone Number INTERFACE SYSTEM Refer to clinic/hospital department * (ABNORMAL) CBC WITH DIFFERENTIAL (06/17/2007 7:50 PM DIESEL TECHNICIAN MECHANIC) WBC 20.9(H) 4.5 - 11.0 K/ul [...] 0.2 K/ul INTERFACE SYSTEM 06/17/2007 7:50 PM DIESEL TECHNICIAN MECHANIC us Sammi Justice MD HEMATOLOGY ORDERABLES Edite d INTERFACE SYSTEM Refer to clinic/hospital department * (ABNORMAL) POC ISTAT EG 7+ (06/17/2007 6:48 PM DIESEL TECHNICIAN MECHANIC) SPECIMEN TYPE Arterial INTERF SHANTE SYSTEM Comment: Test Performed By [id number] Pulse OX: 96 Hemoglobin calculated from Hematocrit [...] 1.32 mmol/l INTERFACE SYSTEM 06/17/2007 6:48 PM DIESEL TECHNICIAN MECHANIC Murphy Espitia MD POINT OF CARE TESTING COM Edite d INTERFACE SYSTEM Refer to clinic/hospital department documented in this encounter Visit Diagnoses Diagnosis Unspecified asthma, with exacerbation Bipolar I disorder, most recent episode (or current) depressed, unspecified (CMS/[facility]) Bipolar I disorder, most recent episode (or current) depressed, unspecified Tobacco use disorder Obesity, unspecified Hypopotassemia Hypoxemia documented in this encounter Additional Health Concerns Infection Onset Date Last Indicated Resolved Time VRE Comment:Urine 10/30/13 Resolved 11/04/2013 11/04/2013 10:33 AM DIESEL TECHNICIAN MECHANIC R/O COVID-19 12/25/2019 12/25/2019 12/26/2019 2:46 PM CDT R/O COVID-19 05/09/2020 05/09/2020 05/09/2020 12:1 7 PM DIESEL TECHNICIAN MECHANIC documented as of this encounter Care Teams Wire Machine Cutter Relationship Specialty Start Date End Date Dara Tavera FNP [address] [place] [phone] PCP - General NURSE PRACTITIONER 10/13/18 documented as of this encounter
--- OUTSIDE RECORDS SUMMARY | 2025-06-14 20:48 | XMS_ITS | Encounter Summary ---
Author Organization [facility] Address [address] [place] [address] Care Team Providers Care Advocacy Director Name Role Phone Dara Tavera Primary Care Provider Encounter Details Date Type Department Care Team (Latest Contact Info) Description 02/26/2007 Outpatient Historical [facility] [address] [place] [address] [address], [facility] Abdominal Pain, Unspecified Site (Primary Dx) Social History Tobacco Use Types Packs/Day Years Used Date Smoking Tobacco: Never Assessed Comments Unknown Sex and Gender Information Value Date Recorded Sex Assigned at Not on file Legal Sex Female 5:22 AM PIPE CREW FOREMAN Gender Identity Not on file Sexual Orientation Not on file documented as of this encounter Plan of Treatment Not on file documented as of this encounter Visit Diagnoses Diagnosis Abdominal pain, unspecified site- Primary documented in this encounter Additional Health Concerns Infection Onset Date Last Indicated Resolved Time 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
--- OUTSIDE RECORDS SUMMARY | 2025-06-14 20:48 | XMS_ITS | Encounter Summary ---
Author Organization [facility] Address [address] [place] [address] Care Team Providers Care Rand Butting Machine Operator Name Role Phone Dara Tavera AMANDEEP Primary Care Provider [phone] Encounter Details Date Type Department Care Team (Latest Contact Info) Description 03/28/2008 Outpatient Historical [facility] [address] [place] [address] AMBULANCE, [facility] Unspecified Asthma; Unspecified Nonpsychotic Mental Disorder; Acquired [...] on file Legal Sex Female 5:22 AM LEACH CELL OPERATOR Gender Identity Not on file Sexual [...] 10/30/13 Resolved 11/04/2013 11/04/2013 8 10:33 AM LEACH CELL OPERATOR R/O COVID-19 12/25/2019 12/25/2019 12/26/2019 2:46 PM CDT R/O COVID-19 05/09/2020 05/09/2020 05/09/2020 12:1 7 PM LEACH CELL OPERATOR documented as of this encounter Care Teams Rand Butting Machine Operator Relationship Specialty Start Date End Date Dara Tavera FNP [address] [place] [phone] PCP - General NURSE PRACTITIONER 10/13/18 documented as of this encounter
--- OUTSIDE RECORDS SUMMARY | 2025-06-14 20:48 | XMS_ITS | Encounter Summary ---
Author Organization [facility] Address [address] [place] [address] Care Team Providers Care Clam Picker Name Role Phone Dara Tavera CARDIOPULMONARY SPECIALIST Primary Care Provider Encounter Details Date Type Department Care Team (Late st Contact Info) Description 02/13/2007 Outpatient Historical [facility] Alisa Ross MD [address] [place] [address] Social History Tobacco Use Types Packs/Day Years Used Date Smoking Tobacco: Never Assessed Comments Unknown Sex and Gender Information Value Date Recorded Sex Assigned at Not on file Legal Sex Female 5:22 AM IT BUSINESS PROCESS ARCHITECT Gender Identity Not on file Sexual [...] Resolved 11/04/2013 11/04/2013 8 10:33 AM IT BUSINESS PROCESS ARCHITECT R/O COVID-19 12/25/2019 12/25/2019 12/26/2019 2:46 PM CDT R/O COVID-19 05/09/2020 05/09/2020 05/09/2020 12:1 7 PM IT BUSINESS PROCESS ARCHITECT documented as of this encounter Care Teams Clam Picker Relationship Specialty Start Date End Date Dara Tavera FNP [address] [place] [phone] PCP - General NURSE PRACTITIONER 10/13/18 documented as of this encounter
--- OUTSIDE RECORDS SUMMARY | 2025-06-14 20:48 | XMS_ITS | Clinical Summary ---
Author Organization [facility] Address [address] [place] [address] Care Team Providers Care Inspector Screen Printing Name Role Phone Dara Tavera AERODYNAMICS PROFESSOR Primary Care Provider Allergies Active Allergy Reactions Criticality Noted Date Comments Adhesive Rash Low 02/12/2009 Codeine Nausea and Vomiting Low 02/12/2009 Duloxetine Other (See Comments) 02/24/2015 Fentanyl Hives High 11/07/2019 Fluoxetine Unknown 10/20/2018 Gabapentin Unknown,Hallucination Low 02/12/2009 Influenza Virus Vaccine Qv [id number] (36 Mos+) Other (See Comments) 06/19/2014 pneumonia Ketorolac Tromethamine Other (See Comments) Low Adverse drug reaction [facility] Unknown 02/12/2009 Other reaction(s): shakey Penicillins Rash [...] 9 Active fluticasone propionate (FLONASE) 50 mcg/spray [place], Suspension nasal inhaler Administer 2 Sprays in [...] 07/07/2009 0 10/26/2012 Personal history of MRSA (il thicillin resistant Staphylococcus aureus) 06/27/2009 018 Overview [...] asked 05/05/2019 How often do you attend gnosticism or episcopalian serv ices? Not asked 05/05/2019 Do you belong to any clubs o r organizations such as gnosticism groups, unions, fraternal or athletic groups, or [...] on file Legal Sex Female 5:22 AM FINGER COBBLER Gender Identity Not on file Sexual Orientation [...] Advance Directives For more information, please contact: [phone] Documents on File Type Date Recorded Patient Utility Lineman Expl anation Advance Directive Living Will 03/11/2015 [...] 6:26 AM 06/22/2018 8:41 PM Care Teams Inspector Screen Printing Relationship Specialty Start Date End Date Dara Tavera FNP [address] [place] [phone] PCP - General NURSE PRACTITIONER 10/13/18
--- OUTSIDE RECORDS SUMMARY | 2025-06-14 20:48 | XMS_ITS | Encounter Summary ---
Author Organization [facility] Address [address] [place] [address] Care Team Providers Care Wool Washer Feeder Name Role Phone Dara Tavera Primary Care Provider Encounter Details Date Type Department Care Team (Latest Contact Info) Description 05/01/2007 Outpatient Historical [facility] Urology- [address] Entrance B, 3rd [place] [address] Mason West MD NO ADDRESS ON FILE Abdominal Pain, Unspecified Site (Primary Dx) Social History Tobacco Use Types Packs/Day Years Used Date Smoking Tobacco: Never Assessed Comments Unknown Sex and Gender Information Value Date Recorded Sex Assigned at Not on file Legal Sex Female 5:22 AM SULFURIC ACID PLANT OPERATOR Gender Identity Not on file Sexual Orientation Not on file documented as of this encounter Plan of Treatment Not on file documented as of this encounter Visit Diagnoses Diagnosis Abdominal pain, unspecified site- Primary documented in this encounter Additional Health Concerns Infection Onset Date Last Indicated Resolved Time VRE Comment:Urine 10/30/13 Resolved 11/04/2013 11/04/2013 8 10:33 AM SULFURIC ACID PLANT OPERATOR R/O COVID-19 12/25/2019 12/25/2019 12/26/2019 2:46 PM CDT R/O COVID-19 05/09/2020 05/09/2020 05/09/2020 12:1 7 PM SULFURIC ACID PLANT OPERATOR documented as of this encounter Care Teams Wool Washer Feeder Relationship Specialty Start Date End Date Dara Tavera FNP [address] [place] [address] PCP - General NURSE PRACTITIONER 10/13/18 documented as of this encounter
--- OUTSIDE RECORDS SUMMARY | 2025-06-14 20:48 | XMS_ITS | Encounter Summary ---
Author Organization [facility] Address [address] [place] [address] Care Team Providers Care Phys Asst Name Role Phone Dara Tavera Primary Care Provider Encounter Details Date Type Department Care Team (Latest Contact Info) Description 11/17/2005 Outpatient Historical [facility] [address] [place] [place] [address] AMBULANCE, [facility] Non-Healing Surgical Wound (Primary Dx) Social History Tobacco Use Types Packs/Day Years Used Date Smoking Tobacco: Never Assessed Comments Unknown Sex and Gender Information Value Date Recorded Sex Assigned at Not on file Legal Sex Female 5:22 AM PLANT CYTOLOGIST Gender Identity Not on file Sexual Orientation Not on file documented as of this encounter Plan of Treatment Not on file documented as of this encounter Visit Diagnoses Diagnosis Non-healing surgical wound- Primary documented in this encounter Additional Health Concerns Infection Onset Date Last Indicated Resolved Time VRE Comment:Urine 10/30/13 Resolved 11/04/2013 11/04/2013 8 10:33 AM PLANT CYTOLOGIST R/O COVID-19 12/25/2019 12/25/2019 12/26/2019 2:46 PM CDT R/O COVID-19 05/09/2020 05/09/2020 05/09/2020 12:1 7 PM PLANT CYTOLOGIST documented as of this encounter Care Teams Phys Asst Relationship Specialty Start Date End Date Dara Tavera FNP [address] [place] [phone] PCP - General NURSE PRACTITIONER 10/13/18 documented as of this encounter
--- OUTSIDE RECORDS SUMMARY | 2025-06-14 20:48 | XMS_ITS | Encounter Summary ---
Author Organization [facility] Address [address] [place] [address] Care Team Providers Care Front End Mechanic Name Role Phone Dara Tavera AUTOMOTIVE DETAILER Primary Care Provider Encounter Details Date Type [...] on file Legal Sex Female 5:22 AM DINKEY BRAKEMAN Gender Identity Not on file Sexual Orientation Not on file documented as of this encounter Progress Notes * Nam Calvo MD - 06/04/2008 9:18 AM CST NAME LATESHA WILHELM PATIENT # [id number] 1965 AGE 42Y PHYSICIAN NAM CALVO MD/[id number] ADMITTED 05/11/2008 DISMISSED 05/12/2008 REVISED DOCUMENT: 07/11/2008 [facility] DISCHARGE DIAGNOSES: 1. Drug overdose. SECONDARY [...] was activated. She was brought in to [facility] where she had head CT. Fortunately, [...] Econazole nitrate cream applied topically. NAM CALVO MD/[id number]/ [id number] REV/BL [id number] - 07/11/2008 - [facility] EY BRAKEMAN documented in this encounter Plan of Treatment Not on file documented as of this encounter Procedures Procedure Name Priority Date/Time Associated Diagnosis Comments CARDIAC ENZYMES Routine 05/12/2008 4:45 AM DINKEY BRAKEMAN CBC WITH DIFFERENTIAL Routine 05/12/2008 4:45 AM DINKEY BRAKEMAN TSH Routine 05/12/2008 4:45 AM DINKEY BRAKEMAN COMPREHENSIVE METABOLIC PANEL Routine 05/12/2008 4:45 AM DINKEY BRAKEMAN CARDIAC ENZYMES Routine 05/11/2008 10:13 PM DINKEY BRAKEMAN D-DIMER Routine 05/11/2008 10:13 PM DINKEY BRAKEMAN CARDIAC ENZYMES Routine 05/11/2008 3:50 PM DINKEY BRAKEMAN XR CHEST PA OR AP 1 VW Routine 8 1:07 PM DINKEY BRAKEMAN MRSA CULTURE Routine 05/11/2008 10:37 AM DINKEY BRAKEMAN URINALYSIS W/REFLEX MICROSCOPIC Routine 05/11/2008 5:41 AM DINKEY BRAKEMAN documented in this encounter Results * (ABNORMAL) CBC WITH DIFFERENTIAL (05/12/2008 4:45 AM DINKEY BRAKEMAN) HEMATOCRIT 36.0 36.0 - 46.0 % [facility] EOSINOPHILS 5.1 0.0 - 7.0 % [facility] PLATELETS 207 140 - 440 K/ul [facility] EOSINOPHIL ABSOLUTE 0.4 0.0 - 0.7 K/ul [facility] RBC 3.92(L) 4.20 - 5.40 Mil/ul [facility] LYMPHOCYTES 35.9 24.0 - 44.0 % [facility] MCHC 33.3 30.0 - 35.0 g/dL [facility] LYMPHOCYTE ABSOLUTE 2.6 1.2 - 4.0 K/ul [facility] MCV 91.8 84.0 - 103.0 Fl [facility] MPV 10.4 8.9 - 12.8 Fl [facility] BASOPHILS ABSOLUTE 0.1 0.0 - 0.2 K/ul [facility] BASOPHILS 1.1(H) 0.0 - 1.0 % [facility] HEMOGLOBIN 12.0 12.0 - 16.0 g/dL [facility] RDW 14.4 11.0 - 14.5 % [facility] MONOCYTE ABSOLUTE 0.5 0.1 - 0.6 K/ul [facility] MONOCYTES 7.4 2.0 - 10.0 % [facility] WBC 7.2 4.5 - 11.0 K/ul [facility] MCH 30.6 27.0 - 34.0 pg [facility] NEUTROPHIL ABSOLUTE 3.6 2.0 - 8.0 K/ul [facility] NEUTROPHILS 50.5 42.2 - 75.2 % [facility] Blood specimen (specimen) 05/12/2008 4:45 AM DINKEY BRAKEMAN 05/12/2008 4:45 AM DINKEY BRAKEMAN Murphy Espitia MD HEMATOLOGY ORDERABLES Final Res ult Performing Organization Address [facility] de Phone Number INTERFACE SYSTEM Refer to clinic/hospital department [facility] CLIA# [id number] [address] [place] [address] * TSH (05/12/2008 4:45 AM DINKEY BRAKEMAN) Pathologist [facility] TSH 2.120 0.350 - 5.500 uIU/ml [facility] Blood specimen (specimen) 05/12/2008 4:45 AM DINKEY BRAKEMAN 05/12/2008 4:45 AM DINKEY BRAKEMAN Murphy Espitia MD CHEMISTRY ORDERABLES Final Resu lt Performing Organization Address [facility] Phone Number INTERFACE SYSTEM Refer to clinic/hospital department [facility] CLIA# [id number] [address] [place] [address] * (ABNORMAL) COMPREHENSIVE METABOLIC PANEL (05/12/2008 4:45 AM DINKEY BRAKEMAN) Pathologist [facility] CALCIUM 8.5 8.4 - 10.5 mg/dL [facility] CREATININE 0.8 0.7 - 1.2 mg/dL [facility] ALT 18 4 - 36 IU/L [facility] GLUCOSE 115(H) 70 - 110 mg/dL [facility] CHLORIDE 109 95 - 110 mEq/L [facility] OSMOLALITY, CALCULATED 282 275 - 295 mOsm/Kg [facility] ALKALINE PHOSPHATASE 110(H) 25 - 100 U/L [facility] GLOBULIN (CALC) 2.7 2.4 - 3.9 g/dL [facility] SODIUM 137 136 - 145 mEq/L [facility] BILIRUBIN TOTAL 0.1(L) 0.3 - 1.2 mg/dL [facility] TOTAL PROTEIN 6.2(L) 6.3 - 8.2 g/dL [facility] BUN 9 7 - 17 mg/dL [facility] AST 22 8 - 33 U/L [facility] CO2 24 22 - 32 mmol/l [facility] ALBUMIN/GLOBULIN RATIO 1.3 1.0 - 2.3 [facility] ALBUMIN 3.5 3.5 - 5.0 g/dL [facility] POTASSIUM 4.2 3.5 - 5.0 mEq/L [facility] ANION GAP 8(L) 9 - 20 mEq/L [facility] Blood specimen (specimen) 05/12/2008 4:45 AM DINKEY BRAKEMAN 05/12/2008 4:45 AM DINKEY BRAKEMAN Murphy Espitia MD CHEMISTRY ORDERABLES Final Resu lt Performing Organization Address City/[facility] de Phone Number INTERFACE SYSTEM Refer to clinic/hospital department [facility] CLIA# [id number] [address] [place] [address] * CARDIAC ENZYMES (05/12/2008 4:45 AM DINKEY BRAKEMAN) TROPONIN I <0.1 0.0 - 1.3 ng/mL [facility] CKMB 0.3 0.0 - 5.0 ng/mL [facility] Blood specimen (specimen) 05/12/2008 4:45 AM DINKEY BRAKEMAN 05/12/2008 4:45 AM DINKEY BRAKEMAN Murphy Espitia MD CHEMISTRY ORDERABLES Final Resu lt Performing Organization Address [facility] de Phone Number INTERFACE SYSTEM Refer to clinic/hospital department [facility] CLIA# [id number] [address] [place] [address] * CARDIAC ENZYMES (05/11/2008 10:13 PM DINKEY BRAKEMAN) TROPONIN I <0.1 0.0 - 1.3 ng/mL [facility] CKMB 0.2 0.0 - 5.0 ng/mL [facility] Blood specimen (specimen) 05/11/2008 10:13 PM DINKEY BRAKEMAN 05/11/2008 10:13 PM DINKEY BRAKEMAN Murphy Espitia MD CHEMISTRY ORDERABLES Final Resu lt Performing Organization Address [facility] Phone Number INTERFACE SYSTEM Refer to clinic/hospital department [facility] CLIA# [id number] [address] [place] [address] * D-DIMER (05/11/2008 10:13 PM DINKEY BRAKEMAN) Pathologist [facility] D-DIMER QUANT 0.4 0.0 - 0.5 mcg/mL [facility] Comment: Testing performed using [...] range. Blood specimen (specimen) 05/11/2008 10:13 PM DINKEY BRAKEMAN 05/11/2008 10:13 PM DINKEY BRAKEMAN Murphy Espitia MD HEMATOLOGY ORDERABLES Final Res ult Performing Organization Address [facility] Phone Number INTERFACE SYSTEM Refer to clinic/hospital [facility] CLIA# [id number] [address] [place] [address] * CARDIAC ENZYMES (05/11/2008 3:50 PM DINKEY BRAKEMAN) Pathologist [facility] TROPONIN I <0.1 0.0 - 1.3 ng/mL [facility] CKMB 0.2 0.0 - 5.0 ng/mL [facility] Blood specimen (specimen) 05/11/2008 3:50 PM DINKEY BRAKEMAN 05/11/2008 4:01 PM DINKEY BRAKEMAN us Murphy Espitia MD CHEMISTRY ORDERABLES Final Resu lt Performing Organization Address [facility] de Phone Number INTERFACE SYSTEM Refer to clinic/hospital department [facility] CLIA# [id number] [address] [place] [address] * XR CHEST PA OR AP (05/11/2008 1:07 PM DINKEY BRAKEMAN) Anatomical Region Laterality Modality Chest Other 05/11/2008 1:07 PM DINKEY BRAKEMAN Narrative 05/11/2008 4:41 PM DINKEY BRAKEMAN Exam: Chest - Portable Date/Time of Exam: [...] Result * MRSA CULTURE (05/11/2008 10:37 AM DINKEY BRAKEMAN) FINAL REPORT Culture screen for MRSA negative INTERFACE SYSTEM ANTERIOR NARES SWAB / Unknown 05/11/2008 10:37 AM DINKEY BRAKEMAN 05/11/2008 10:37 AM DINKEY BRAKEMAN us Murphy Espitia MD MICROBIOLOGY - GENERAL ORDERABL ES Final Result INTERFACE SYSTEM Refer to clinic/hospital department * URINALYSIS (05/11/2008 5:41 AM DINKEY BRAKEMAN) NITRITE UA NEGATIVE NEGATIVE [facility] UROBILINOGEN UA 0.2 0.2 [facility] CLARITY UA SL CLOUDY Clear [facility] SPECIFIC GRAVITY UA 1.015 <=1.005 [facility] GLUCOSE UA NEGATIVE NEGATIVE [facility] PH UA 8.0 5.0 - 9.0 [facility] BILIRUBIN UA NEGATIVE NEGATIVE [facility] LEUKOCYTE ESTERASE UA NEGATIVE NEGATIVE [facility] KETONES UA NEGATIVE NEGATIVE [facility] MICRO EXAM No No [facility] COLOR UA Yellow Straw [facility] PROTEIN UA NEGATIVE NEGATIVE [facility] BLOOD UA NEGATIVE NEGATIVE [facility] Urine specimen (specimen) 05/11/2008 5:41 AM DINKEY BRAKEMAN 05/11/2008 5:41 AM DINKEY BRAKEMAN Murphy Espitia MD URINE ORDERABLES Final Result Performing Organization Address City/State/[facility] [place] mi Phone Number INTERFACE SYSTEM Refer to clinic/hospital department [facility] CLIA# [id number] [address] [place] [address] documented in this encounter Visit Diagnoses Diagnosis Poisoning by unspecified drug or medicinal substance(977.9) Poisoning by unspecified drug or medicinal substance documented in this encounter Additional Health Concerns Infection Onset Date Last Indicated Resolved Time VRE Comment:Urine 10/30/13 Resolved 11/04/2013 11/04/2013 8 10:33 AM DINKEY BRAKEMAN R/O COVID-19 12/25/2019 12/25/2019 12/26/2019 2:46 PM CDT R/O COVID-19 05/09/2020 05/09/2020 05/09/2020 12:1 7 PM DINKEY BRAKEMAN documented as of this encounter Care Teams Front End Mechanic Relationship Specialty Start Date End Date Dara Tavera FNP [address] [place] [phone] PCP - General NURSE PRACTITIONER 10/13/18 documented as of this encounter
--- OUTSIDE RECORDS SUMMARY | 2025-06-14 20:48 | XMS_ITS | Encounter Summary ---
Author Organization [facility] Address [address] [place] [address] Care Team Providers Care Pcmh Specialist Name Role Phone Dara Tavera Primary Care Provider Encounter Details Date Type Department Care Team (Latest Contact Info) Description 02/20/2007 Outpatient Historical [facility] [address] [place] [address] AMBULANCE, [facility] Unspecified Nonpsychotic Mental Disorder (Primary Dx) Social History Tobacco Use Types Packs/Day Years Used Date Smoking Tobacco: Never Assessed Comments Unknown Sex and Gender Information Value Date Recorded Sex Assigned at Not on file Legal Sex Female 5:22 AM SENIOR ENGINEERING MANAGER Gender Identity Not on file Sexual Orientation Not on file documented as of this encounter Plan of Treatment Not on file documented as of this encounter Visit Diagnoses Diagnosis Unspecified nonpsychotic mental disorder- Primary documented in this encounter Additional Health Concerns Infection Onset Date Last Indicated Resolved Time VRE Comment:Urine 10/30/13 Resolved 11/04/2013 11/04/2013 8 10:33 AM SENIOR ENGINEERING MANAGER R/O COVID-19 12/25/2019 12/25/2019 12/26/2019 2:46 PM CDT R/O COVID-19 05/09/2020 05/09/2020 05/09/2020 12:1 7 PM SENIOR ENGINEERING MANAGER documented as of this encounter Care Teams Pcmh Specialist Relationship Specialty Start Date End Date Dara Tavera FNP [address] [place] [phone] PCP - General NURSE PRACTITIONER 10/13/18 documented as of this encounter
--- OUTSIDE RECORDS SUMMARY | 2025-06-14 20:48 | XMS_ITS | Encounter Summary ---
Author Organization [facility] Address [address] [place] [address] Care Team Providers Care Cigar Sorter Name Role Phone Dara Tavera AMANDEEP Primary Care Provider Encounter Details Date Type Department Care Team (Latest Contact Info) Description 04/24/2008 Outpatient Historical [facility] [address] [place] [address] AMBULANCE, [facility] Unspecified Acute Reaction to Stress; Unspecified Epilepsy [...] file Legal Sex Female 5:22 AM SERVICE LEARNING COORDINATOR Gender Identity Not on file Sexual [...] Resolved 11/04/2013 11/04/2013 8 10:33 AM SERVICE LEARNING COORDINATOR R/O COVID-19 12/25/2019 12/25/2019 12/26/2019 2:46 PM CDT R/O COVID-19 05/09/2020 05/09/2020 05/09/2020 12:1 7 PM SERVICE LEARNING COORDINATOR documented as of this encounter Care Teams Cigar Sorter Relationship Specialty Start Date End Date Dara Tavera FNP [address] [place] [phone] PCP - General NURSE PRACTITIONER 10/13/18 documented as of this encounter
--- OUTSIDE RECORDS SUMMARY | 2025-06-14 20:48 | XMS_ITS | Encounter Summary ---
Author Organization [facility] Address [address] [place] [address] Care Team Providers Care Dresser Tender Name Role Phone Dara Tavera AMANDEEP Primary Care Provider Encounter Details Date Type Department Care Team (Late st Contact Info) Description 04/27/2007 Emergency [facility] Emergency Department [address] [place] [address] Sammi Justice MD [address] [place] [address] Abdominal Pain, Other Specified Site (Primary Dx) Social History Tobacco Use Types Packs/Day Years Used Date Smoking Tobacco: Never Assessed Comments Unknown Sex and Gender Information Value Date Recorded Sex Assigned at Not on file Legal Sex Female 5:22 AM CUTTING TOOL SHARPENER Gender Identity Not on file Sexual Orientation Not on file documented as of this encounter Plan of Treatment Not on file documented as of this encounter Procedures Procedure Name Priority Date/Time Associated Diagnosis Comments URINALYSIS W/REFLEX MICROSCOPIC Routine 04/27/2007 6:20 PM CUTTING TOOL SHARPENER CBC WITH DIFFERENTIAL Routine 04/27/2007 6:09 PM CUTTING TOOL SHARPENER COMPREHENSIVE METABOLIC PANEL Routine 04/27/2007 6:09 PM CUTTING TOOL SHARPENER documented in this encounter Results * URINALYSIS (04/27/2007 6:20 PM CUTTING TOOL SHARPENER) COLOR UA Yellow Straw INTERFACE SYSTEM CLARITY [...] No No INTERFACE SYSTEM 04/27/2007 6:20 PM CUTTING TOOL SHARPENER Sammi Justice MD URINE ORDERABLES Edited Performing Organization Address City/[facility] Co de Phone Number INTERFACE SYSTEM Refer to clinic/hospital department * (ABNORMAL) COMPREHENSIVE METABOLIC PANEL (04/27/2007 6:09 PM CUTTING TOOL SHARPENER) GLUCOSE 108 70 - 110 mg/dL INTERFACE [...] 295 mOsm/Kg INTERFACE SYSTEM 04/27/2007 6:09 PM CUTTING TOOL SHARPENER Sammi Justice MD CHEMISTRY ORDERABLES Edited INTERFACE SYSTEM Refer to clinic/hospital department * (ABNORMAL) CBC WITH DIFFERENTIAL (04/27/2007 6:09 PM CUTTING TOOL SHARPENER) WBC 11.0 4.5 - 11.0 K/ul INTERFACE [...] 0.2 K/ul INTERFACE SYSTEM 04/27/2007 6:09 PM CUTTING TOOL SHARPENER us Sammi Justice MD HEMATOLOGY ORDERABLES Edite d INTERFACE SYSTEM Refer to clinic/hospital department documented in this encounter Visit Diagnoses Diagnosis Abdominal pain, other specified site- Primary documented in this encounter Additional Health Concerns Infection Onset Date Last Indicated Resolved Time VRE Comment:Urine 10/30/13 Resolved 11/04/2013 11/04/2013 8 10:33 AM CUTTING TOOL SHARPENER R/O COVID-19 12/25/2019 12/25/2019 12/26/2019 2:46 PM CDT R/O COVID-19 05/09/2020 05/09/2020 05/09/2020 12:1 7 PM CUTTING TOOL SHARPENER documented as of this encounter Care Teams Dresser Tender Relationship Specialty Start Date End Date Dara Tavera FNP [address] [place] [phone] PCP - General NURSE PRACTITIONER 10/13/18 documented as of this encounter
--- OUTSIDE RECORDS SUMMARY | 2025-06-14 20:48 | XMS_ITS | Encounter Summary ---
Author Organization [facility] Address [address] [place] [address] Care Team Providers Care Maintenance Shop Welder Name Role Phone Dara Tavera Primary Care Provider Encounter Details Date Type Department Care Team (Latest Contact Info) Description 12/16/2005 Outpatient Historical [facility] [address] [place] [address] AMBULANCE, [facility] Unspecified Nonpsychotic Mental Disorder (Primary Dx) Social History Tobacco Use Types Packs/Day Years Used Date Smoking Tobacco: Never Assessed Comments Unknown Sex and Gender Information Value Date Recorded Sex Assigned at Not on file Legal Sex Female 5:22 AM GLASS EDGER Gender Identity Not on file Sexual Orientation Not on file documented as of this encounter Plan of Treatment Not on file documented as of this encounter Visit Diagnoses Diagnosis Unspecified nonpsychotic mental disorder- Primary documented in this encounter Additional Health Concerns Infection Onset Date Last Indicated Resolved Time VRE Comment:Urine 10/30/13 Resolved 11/04/2013 11/04/2013 8 10:33 AM GLASS EDGER R/O COVID-19 12/25/2019 12/25/2019 12/26/2019 2:46 PM CDT R/O COVID-19 05/09/2020 05/09/2020 05/09/2020 12:1 7 PM GLASS EDGER documented as of this encounter Care Teams Maintenance Shop Welder Relationship Specialty Start Date End Date Dara Tavera FNP [address] [place] [address] PCP - General NURSE PRACTITIONER 10/13/18 documented as of this encounter
--- OUTSIDE RECORDS SUMMARY | 2025-06-14 20:48 | XMS_ITS | Encounter Summary ---
Author Organization [facility] Address [address] [place] [address] Care Team Providers Care Pre Owned Sales Consultant Name Role Phone Dara Tavera Primary Care Provider Encounter Details Date Type Department Care Team (Late st Contact Info) Description 04/03/2007 Outpatient [facility] [address] [place] [address] AMBULANCE, [facility] Other Chest Pain (Primary Dx) Social History Tobacco Use Types Packs/Day Years Used Date Smoking Tobacco: Never Assessed Comments Unknown Sex and Gender Information Value Date Recorded Sex Assigned at Not on file Legal Sex Female 5:22 AM GREEN HOUSE MANAGER Gender Identity Not on file Sexual Orientation Not on file documented as of this encounter Plan of Treatment Not on file documented as of this encounter Visit Diagnoses Diagnosis Other chest pain- Primary documented in this encounter Additional Health Concerns Infection Onset Date Last Indicated Resolved Time 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
--- OUTSIDE RECORDS SUMMARY | 2025-06-14 20:48 | XMS_ITS | Encounter Summary ---
Author Organization [facility] Address [address] [place] [address] Care Team Providers Care Presidential Support Specialist Name Role Phone Dara Tavera AMANDEEP Primary Care Provider [phone] Encounter Details Date Type Department Care Team (Late st Contact Info) Description 04/04/2007 Emergency [facility] Emergency Department [address] [place] [address] Sammi Justice MD [address] [place] [address] Unspecified Chest Pain (Primary Dx) Social History Tobacco Use Types Packs/Day Years Used Date Smoking Tobacco: Never Assessed Comments Unknown Sex and Gender Information Value Date Recorded Sex Assigned at Not on file Legal Sex Female 5:22 AM RFID SPECIALIST Gender Identity Not on file Sexual [...] HEMATOLOGY ORDERABLES Edite d Performing Organization Address [facility] Phone Number INTERFACE SYSTEM Refer to clinic/hospital [...] HEMATOLOGY ORDERABLES Edite d Performing Organization Address [facility] Phone Number INTERFACE SYSTEM Refer to clinic/hospital [...] Goal INR 3.0; range 2.5 - 3.5 POST-AZ Goal INR 2.5; range 2.0 - 3.0 or Goal 3.0; range 2.5 - 3.5 Atrial Fibrillation Goal INR 2.5; range 2.0 - 3.0 Ischemic Stroke Goal INR 2.5; range 2.0 - 3.0 For additional information see Guidelines for Anticoagulation available from the pharmacy [facility]. 04/04/2007 1:03 AM CDT Sammi Justice MD HEMATOLOGY ORDERABLES Edite d Performing Organization Address [facility] Phone Number INTERFACE SYSTEM Refer to clinic/hospital [...] MD CHEMISTRY ORDERABLES Edited Performing Organization Address [facility] Phone Number INTERFACE SYSTEM Refer [...] ORDERABLES Edited Performing Organization Address [facility] Phone Number INTERFACE SYSTEM Refer to clinic/hospital department documented in this encounter Visit Diagnoses Diagnosis Chest pain, unspecified- Primary documented in this encounter Additional Health Concerns Infection Onset Date Last Indicated Resolved Time VRE Comment:Urine 10/30/13 Resolved 11/04/2013 11/04/201307/26/ 8 10:33 AM RFID SPECIALIST R/O COVID-19 12/25/2019 12/25/2019 12/26/2019 2:46 PM CDT R/O COVID-19 05/09/2020 05/09/2020 05/09/2020 12:1 7 PM RFID SPECIALIST documented as of this encounter Care Teams Presidential Support Specialist Relationship Specialty Start Date End Date Dara Tavera FNP [address] [place] [phone] PCP - General NURSE PRACTITIONER 10/13/18 documented as of this encounter
--- OUTSIDE RECORDS SUMMARY | 2025-06-14 20:48 | XMS_ITS | Encounter Summary ---
Author Organization [facility] Address [address] [place] [address] Care Team Providers Care Child Day Care Center Worker Name Role Phone Dara Tavera Primary Care Provider Encounter Details Date Type Department Care Team (Late st Contact Info) Description 08/06/2007 Outpatient [facility] [address] [place] [address] Tej Will MD [address] [address] Social History Tobacco Use Types Packs/Day Years Used Date Smoking Tobacco: Never Assessed Comments Unknown Sex and Gender Information Value Date Recorded Sex Assigned at Not on file Legal Sex Female 5:22 AM WIRELESS CONSTRUCTION MANAGER Gender Identity Not on file Sexual Orientation Not on file documented as of this encounter Plan of Treatment Not on file documented as of this encounter Visit Diagnoses Not on filedocumented in this encounter Additional Health Concerns Infection Onset Date Last Indicated Resolved Time VRE Comment:Urine 10/30/13 Resolved 11/04/2013 11/04/2013 8 10:33 AM WIRELESS CONSTRUCTION MANAGER R/O COVID-19 12/25/2019 12/25/2019 12/26/2019 2:46 PM CDT R/O COVID-19 05/09/2020 05/09/2020 05/09/2020 12:1 7 PM WIRELESS CONSTRUCTION MANAGER documented as of this encounter Care Teams Child Day Care Center Worker Relationship Specialty Start Date End Date Dara Tavera FNP [address] [place] [phone] PCP - General NURSE PRACTITIONER 10/13/18 documented as of this encounter
--- OUTSIDE RECORDS SUMMARY | 2025-06-14 20:48 | XMS_ITS | Encounter Summary ---
Author Organization [facility] Address [address] [place] [address] Care Team Providers Care Manager Finance Name Role Phone Dara Tavera Primary Care Provider Encounter Details Date Type Department Care Team (Late st Contact Info) Description 05/13/2007 Outpatient [facility] [address] [place] [address] AMBULANCE, [facility] Social History Tobacco Use Types Packs/Day Years Used Date Smoking Tobacco: Never Assessed Comments Unknown Sex and Gender Information Value Date Recorded Sex Assigned at Not on file Legal Sex Female 5:22 AM RESIDENTIAL CAREGIVER Gender Identity Not on file Sexual Orientation Not on file documented as of this encounter Plan of Treatment Not on file documented as of this encounter Visit Diagnoses Not on filedocumented in this encounter Additional Health Concerns Infection Onset Date Last Indicated Resolved Time VRE Comment:Urine 10/30/13 Resolved 11/04/2013 11/04/2013 8 10:33 AM RESIDENTIAL CAREGIVER R/O COVID-19 12/25/2019 12/25/2019 12/26/2019 2:46 PM CDT R/O COVID-19 05/09/2020 05/09/2020 05/09/2020 12:1 7 PM RESIDENTIAL CAREGIVER documented as of this encounter Care Teams Manager Finance Relationship Specialty Start Date End Date Dara Tavera FNP [address] [place] [phone] PCP - General NURSE PRACTITIONER 10/13/18 documented as of this encounter
--- OUTSIDE RECORDS SUMMARY | 2025-06-14 20:48 | XMS_ITS | Encounter Summary ---
Author Organization [facility] Address [address] [place] [address] Care Team Providers Care Canary Raiser Name Role Phone Dara Tavera AMANDEEP Primary Care Provider Encounter Details Date Type Department Care Team (Late st Contact Info) Description 04/13/[address] [facility] Emergency Department [address] [place] [address] Flex Ricks MD NO ADDRESS ON FILE Other and Unspecified Noninfectious Gastroenteritis and Colitis (Primary Dx) Social History Tobacco Use Types Packs/Day Years Used Date Smoking Tobacco: Never Assessed Comments Unknown Sex and Gender Information Value Date Recorded Sex Assigned at Not on file Legal Sex Female 5:22 AM PALS NURSE Gender Identity Not on file Sexual [...] 10/30/13 Resolved 11/04/2013 11/04/2013 8 10:33 AM PALS NURSE R/O COVID-19 12/25/2019 12/25/2019 12/26/2019 2:46 PM CDT R/O COVID-19 05/09/2020 05/09/2020 05/09/2020 12:1 7 PM PALS NURSE documented as of this encounter Care Teams Canary Raiser Relationship Specialty Start Date End Date Dara Tavera FNP [address] [place] [phone] PCP - General NURSE PRACTITIONER 10/13/18 documented as of this encounter
--- OUTSIDE RECORDS SUMMARY | 2025-06-14 20:48 | XMS_ITS | Encounter Summary ---
Author Organization [facility] Address [address] [place] [address] Care Team Providers Care Sample Puller Name Role Phone Dara Tavera AMANDEEP Primary Care Provider Encounter Details Date Type Department Care Team (Latest Contact Info) Description 02/28/2008 Outpatient Historical [facility] [address] [place] [address] AMBULANCE, [facility] Blood in Stool; Nausea Alone; Unspecified [...] on file Legal Sex Female 5:22 AM ACUPUNCTURIST Gender Identity Not on file Sexual Orientation [...] 10/30/13 Resolved 11/04/2013 11/04/201307/26/201 8 10:33 AM ACUPUNCTURIST R/O COVID-19 12/25/2019 12/25/2019 12/26/2019 2:46 PM CDT R/O COVID-19 05/09/2020 05/09/2020 05/09/2020 12:1 7 PM ACUPUNCTURIST documented as of this encounter Care Teams Sample Puller Relationship Specialty Start Date End Date Dara Tavera FNP [address] [place] [address] PCP - General NURSE PRACTITIONER 10/13/18 documented as of this encounter
--- OUTSIDE RECORDS SUMMARY | 2025-06-14 20:48 | XMS_ITS | Encounter Summary ---
Author Organization [facility] Address [address] [place] [address] Care Team Providers Care Production Planning Supervisor Name Role Phone Dara Tavera Primary Care Provider Encounter Details Date Type Department Care Team (Latest Contact Info) Description 09/19/2005 Outpatient Historical [facility] [address] [place] [address] AMBULANCE, [facility] Unspecified Hemorrhage (Primary Dx) Social History Tobacco Use Types Packs/Day Years Used Date Smoking Tobacco: Never Assessed Comments Unknown Sex and Gender Information Value Date Recorded Sex Assigned at Not on file Legal Sex Female 5:22 AM IMPORTER OR EXPORTER Gender Identity Not on file Sexual Orientation Not on file documented as of this encounter Plan of Treatment Not on file documented as of this encounter Visit Diagnoses Diagnosis Hemorrhage, unspecified- Primary documented in this encounter Additional Health Concerns Infection Onset Date Last Indicated Resolved Time VRE Comment:Urine 10/30/13 Resolved 11/04/2013 11/04/2013 8 10:33 AM IMPORTER OR EXPORTER R/O COVID-19 12/25/2019 12/25/2019 12/26/2019 2:46 PM CDT R/O COVID-19 05/09/2020 05/09/2020 05/09/2020 12:1 7 PM IMPORTER OR EXPORTER documented as of this encounter Care Teams Production Planning Supervisor Relationship Specialty Start Date End Date Dara Tavera FNP [address] [place] [address] PCP - General NURSE PRACTITIONER 10/13/18 documented as of this encounter
--- OUTSIDE RECORDS SUMMARY | 2025-06-14 20:48 | XMS_ITS | Encounter Summary ---
Author Organization [facility] Address [address] [place] [address] Care Team Providers Care Administrative Support Technician Name Role Phone Dara Tavera Primary Care Provider Encounter Details Date Type Department Care Team (Late st Contact Info) Description 05/08/2007 Emergency [facility] Emergency Department [address] [place] [address] Sea Romero DO NO ADDRESS ON FILE Shortness of Breath (Primary Dx) Social History Tobacco Use Types Packs/Day Years Used Date Smoking Tobacco: Never Assessed Comments Unknown Sex and Gender Information Value Date Recorded Sex Assigned at Not on file Legal Sex Female 5:22 AM FINAL APPLICATION REVIEWER Gender Identity Not on file Sexual Orientation Not on file documented as of this encounter Plan of Treatment Not on file documented as of this encounter Visit Diagnoses Diagnosis Shortness of breath- Primary documented in this encounter Additional Health Concerns Infection Onset Date Last Indicated Resolved Time VRE Comment:Urine 10/30/13 Resolved 11/04/2013 11/04/2013 8 10:33 AM FINAL APPLICATION REVIEWER R/O COVID-19 12/25/2019 12/25/2019 12/26/2019 2:46 PM CDT R/O COVID-19 05/09/2020 05/09/2020 05/09/2020 12:1 7 PM FINAL APPLICATION REVIEWER documented as of this encounter Care Teams Administrative Support Technician Relationship Specialty Start Date End Date Dara Tavera FNP [address] [place] [address] PCP - General NURSE PRACTITIONER 10/13/18 documented as of this encounter
--- OUTSIDE RECORDS SUMMARY | 2025-06-14 20:48 | XMS_ITS | Encounter Summary ---
Author Organization [facility] Address [address] [place] [address] Care Team Providers Care Gas Charger Name Role Phone Dara Tavera Primary Care Provider Encounter Details Date Type Department Care Team (Latest Contact Info) Description 02/07/2007 Outpatient Historical [facility] [address] [place] [address] AMBULANCE, [facility] Unspecified Nonpsychotic Mental Disorder (Primary Dx) Social History Tobacco Use Types Packs/Day Years Used Date Smoking Tobacco: Never Assessed Comments Unknown Sex and Gender Information Value Date Recorded Sex Assigned at Not on file Legal Sex Female 5:22 AM MARBLE CLEANER Gender Identity Not on file Sexual Orientation Not on file documented as of this encounter Plan of Treatment Not on file documented as of this encounter Visit Diagnoses Diagnosis Unspecified nonpsychotic mental disorder- Primary documented in this encounter Additional Health Concerns Infection Onset Date Last Indicated Resolved Time VRE Comment:Urine 10/30/13 Resolved 11/04/2013 11/04/2013 8 10:33 AM MARBLE CLEANER R/O COVID-19 12/25/2019 12/25/2019 12/26/2019 2:46 PM CDT R/O COVID-19 05/09/2020 05/09/2020 05/09/2020 12:1 7 PM MARBLE CLEANER documented as of this encounter Care Teams Gas Charger Relationship Specialty Start Date End Date Dara Tavera FNP [address] [place] [address] PCP - General NURSE PRACTITIONER 10/13/18 documented as of this encounter
--- OUTSIDE RECORDS SUMMARY | 2025-06-14 20:48 | XMS_ITS | Encounter Summary ---
Author Organization [facility] Address [address] [place] [address] Care Team Providers Care Lead Atg Developer Name Role Phone Dara Tavera AMANDEEP Primary Care Provider Encounter Details Date Type Department Care Team (Late st Contact Info) Description 04/26/2007 Emergency [facility] Emergency Department [address] [place] [address] Kenney Simmons MD [address] [place] [address] Abdominal Pain, Other Specified Site (Primary Dx) Social History Tobacco Use Types Packs/Day Years Used Date Smoking Tobacco: Never Assessed Comments Unknown Sex and Gender Information Value Date Recorded Sex Assigned at Not on file Legal Sex Female 5:22 AM PARCEL POST TRUCK DRIVER Gender Identity Not on file Sexual Orientation Not on file documented as of this encounter Plan of Treatment Not on file documented as of this encounter Procedures Procedure Name Priority Date/Time Associated Diagnosis Comments URINALYSIS W/REFLEX MICROSCOPIC Routine 04/26/2007 11:48 PM PARCEL POST TRUCK DRIVER CT URINARY CALCULI WO CONTRAST Routine 04/26/2007 11:22 PM PARCEL POST TRUCK DRIVER documented in this encounter Results * (ABNORMAL) URINALYSIS (04/26/2007 11:48 PM PARCEL POST TRUCK DRIVER) COLOR UA Yellow Straw INTERFACE [...] No INTERFACE SYSTEM 04/26/2007 11:4 8 PM PARCEL POST TRUCK DRIVER us Physician Sj Ed URINE ORDERABLES Edited INTERFACE SYSTEM Refer to clinic/hospital department * CT RENAL COLIC WO CONT (04/26/2007 11:22 PM PARCEL POST TRUCK DRIVER) Anatomical Region Laterality Modality Abdomen Other 04/26/2007 11:2 2 PM PARCEL POST TRUCK DRIVER Narrative 04/26/2007 11:22 PM PARCEL POST TRUCK DRIVER CT Scan For Renal Colic: Date: 04/27/2007History: [...] degenerative changes in the spine. 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 Impression: No urinary [...] 10/30/13 Resolved 11/04/2013 11/04/2013 8 10:33 AM PARCEL POST TRUCK DRIVER R/O COVID-19 12/25/2019 12/25/2019 12/26/2019 2:46 PM CDT R/O COVID-19 05/09/2020 05/09/2020 05/09/2020 12:1 7 PM PARCEL POST TRUCK DRIVER documented as of this encounter Care Teams Lead Atg Developer Relationship Specialty Start Date End Date Dara Tavera FNP [address] [place] [phone] PCP - General NURSE PRACTITIONER 10/13/18 documented as of this encounter
--- OUTSIDE RECORDS SUMMARY | 2025-06-14 20:48 | XMS_ITS | Encounter Summary ---
Author Organization [facility] Address [address] [place] [address] Care Team Providers Care Alteration Inspector Name Role Phone Dara Tavera AMANDEEP Primary Care Provider Encounter Details Date Type Department Care Team (Latest Contact Info) Description 04/01/2008 Outpatient Historical [facility] [address] [place] [address] AMBULANCE, [facility] Unspecified Asthma; Unspecified Nonpsychotic Mental Disorder; Other Convulsions (CMS/HCC); Tobacco Use Disorder; Personal History of Allergy to Analgesic Agent; Personal History of Allergy to Other Specified Medicinal Agents Social History Tobacco Use Types Packs/Day Years Used Date Smoking Tobacco: Never Assessed Comments Unknown Sex and Gender Information Value Date Recorded Sex Assigned at Not on file Legal Sex Female 5:22 AM CHIEF COMMUNICATIONS OFFICER Gender Identity Not on file Sexual [...] Resolved 11/04/2013 11/04/2013 8 10:33 AM CHIEF COMMUNICATIONS OFFICER R/O COVID-19 12/25/2019 12/25/2019 12/26/2019 2:46 PM CDT R/O COVID-19 05/09/2020 05/09/2020 05/09/2020 12:1 7 PM CHIEF COMMUNICATIONS OFFICER documented as of this encounter Care Teams Alteration Inspector Relationship Specialty Start Date End Date Dara Tavera FNP [address] [place] [address] PCP - General NURSE PRACTITIONER 10/13/18 documented as of this encounter
--- OUTSIDE RECORDS SUMMARY | 2025-06-14 20:48 | XMS_ITS | Encounter Summary ---
Author Organization [facility] Address [address] [place] [address] Care Team Providers Care Market Relationship Manager Name Role Phone Dara Tavera AMANDEEP Primary Care Provider Encounter Details Date Type Department Care Team (Late st Contact Info) Description 04/30/2007 Outpatient [facility] [address] [place] [address] AMBULANCE, [facility] Social History Tobacco Use Types Packs/Day Years Used Date Smoking Tobacco: Never Assessed Comments Unknown Sex and Gender Information Value Date Recorded Sex Assigned at Not on file Legal Sex Female 5:22 AM BUNDLE HELPER Gender Identity Not on file Sexual Orientation Not on file documented as of this encounter Plan of Treatment Not on file documented as of this encounter Procedures Procedure Name Priority Date/Time Associated Diagnosis Comments CT ABDOMEN PELVIS W CONTRAST Routine 04/30/2007 8:07 PM BUNDLE HELPER documented in this encounter Results * CT ABDOMEN PELVIS W CONTRAST (04/30/2007 8:07 PM BUNDLE HELPER) Anatomical Region Laterality Modality Abdomen Other 04/30/2007 8:07 PM BUNDLE HELPER Narrative 04/30/2007 8:[address] Scan Abdomen and Pelvis with contrast [...] 10/30/13 Resolved 11/04/2013 11/04/2013 8 10:33 AM BUNDLE HELPER R/O COVID-19 12/25/2019 12/25/2019 12/26/2019 2:46 PM CDT R/O COVID-19 05/09/2020 05/09/2020 05/09/2020 12:1 7 PM BUNDLE HELPER documented as of this encounter Care Teams Market Relationship Manager Relationship Specialty Start Date End Date Dara Tavera FNP [address] [place] [address] PCP - General NURSE PRACTITIONER 10/13/18 documented as of this encounter
--- OUTSIDE RECORDS SUMMARY | 2025-06-14 20:48 | XMS_ITS | Encounter Summary ---
Author Organization [facility] Address [address] [place] [address] Care Team Providers Care Route Agent Name Role Phone Dara Tavera Primary Care Provider [phone] Encounter Details Date Type Department Care Team (Late st Contact Info) Description 03/05/2008 Outpatient Historical [facility] [address] [place] [address] AMBULANCE, [facility] Social History Tobacco Use Types Packs/Day Years Used Date Smoking Tobacco: Never Assessed Comments Unknown Sex and Gender Information Value Date Recorded Sex Assigned at Not on file Legal Sex Female 5:22 AM FOOD PRODUCTS TESTER Gender Identity Not on file Sexual Orientation Not on file documented as of this encounter Plan of Treatment Not on file documented as of this encounter Visit Diagnoses Not on filedocumented in this encounter Additional Health Concerns Infection Onset Date Last Indicated Resolved Time VRE Comment:Urine 10/30/13 Resolved 11/04/2013 11/04/2013 8 10:33 AM FOOD PRODUCTS TESTER R/O COVID-19 12/25/2019 12/25/2019 12/26/2019 2:46 PM CDT R/O COVID-19 05/09/2020 05/09/2020 05/09/2020 12:1 7 PM FOOD PRODUCTS TESTER documented as of this encounter Care Teams Route Agent Relationship Specialty Start Date End Date Dara Tavera FNP [address] [place] [address] PCP - General NURSE PRACTITIONER 10/13/18 documented as of this encounter
--- OUTSIDE RECORDS SUMMARY | 2025-06-14 20:48 | XMS_ITS | Encounter Summary ---
Author Organization [facility] Address [address] [place] [address] Care Team Providers Care Precipitate Washer Name Role Phone Dara Tavera AMANDEEP Primary Care Provider Encounter Details Date Type Department Care Team (Latest Contact Info) Description 05/11/2008 Outpatient Historical [facility] [address] [place] [address] AMBULANCE, [facility] Esophageal Reflux; Personal History of [...] on file Legal Sex Female 5:22 AM LINING SEWER Gender Identity Not on file Sexual [...] 10/30/13 Resolved 11/04/2013 11/04/2013 8 10:33 AM LINING SEWER R/O COVID-19 12/25/2019 12/25/2019 12/26/2019 2:46 PM CDT R/O COVID-19 05/09/2020 05/09/2020 05/09/2020 12:1 7 PM LINING SEWER documented as of this encounter Care Teams Precipitate Washer Relationship Specialty Start Date End Date Dara Tavera FNP [address] [place] [phone] PCP - General NURSE PRACTITIONER 10/13/18 documented as of this encounter
--- OUTSIDE RECORDS SUMMARY | 2025-06-14 20:48 | XMS_ITS | Encounter Summary ---
Author Organization [facility] Address [address] [place] [address] Care Team Providers Care Trade Union Secretary Name Role Phone Dara Tavera AMANDEEP Primary Care Provider Encounter Details Date Type Department Care Team (Late st Contact Info) Description 04/18/2007 Inpatient Historical [facility] IN B[facility] Pawan Rosario MD [address] [place] [address] Bipolar Affective, Mixed, Sev w/ Psych (CMS/HCC) (Primary Dx) Social History Tobacco Use Types Packs/Day Years Used Date Smoking Tobacco: Never Assessed Comments Unknown Sex and Gender Information Value Date Recorded Sex Assigned at Not on file Legal Sex Female 5:22 AM DIRECTOR OF HOME CARE HOSPICE Gender Identity Not on file Sexual Orientation Not on file documented as of this encounter Plan of Treatment Not on file documented as of this encounter Procedures Procedure Name Priority Date/Time Associated Diagnosis Comments URINALYSIS W/REFLEX MICROSCOPIC Routine 04/22/2007 9:05 AM DIRECTOR OF HOME CARE HOSPICE LIPASE Routine 04/18/2007 10:54 AM CDT AMYLASE Routine 04/18/2007 10:54 AM CDT CBC WITH DIFFERENTIAL Routine 04/18/2007 10:48 AM CDT TSH Routine 04/18/2007 10:48 AM CDT ETHANOL LEVEL Routine 04/18/2007 10:48 AM CDT COMPREHENSIVE METABOLIC PANEL Routine 04/18/2007 10:48 AM CDT DRUG SCREEN, URINE Routine 04/18/2007 9: 47 AM CDT documented in this encounter Results * URINALYSIS (04/22/2007 9:05 AM DIRECTOR OF HOME CARE HOSPICE) COLOR UA Yellow Straw INTERFACE SYSTEM CLARITY [...] No No INTERFACE SYSTEM 04/22/2007 9:05 AM DIRECTOR OF HOME CARE HOSPICE us Pawan Rosario MD URINE ORDERABLES Edited Performing Organization Address [facility] Phone Number INTERFACE SYSTEM Refer to clinic/hospital department * LIPASE (04/18/2007 10:54 AM CDT) LIPASE 36 6 - 51 U/L INTERFACE SYSTEM 04/18/2007 10:5 4 AM CDT Benedicto Rojo MD CHEMISTRY ORDERABLES Edited Performing Organization Address [facility] Phone Number INTERFACE SYSTEM Refer to clinic/hospital department * AMYLASE (04/18/2007 10:54 AM CDT) AMYLASE 46 20 - 104 U/L INTERFACE SYSTEM 04/18/2007 10:5 4 AM CDT Benedicto Rojo MD CHEMISTRY ORDERABLES Edited Performing Organization Address [facility] Phone Number INTERFACE SYSTEM [...] Comment: As of 04 at 3:00 p.m. [facility] has changed the methodology for TSH, and with this change the reference range has changed from 0.49-4.67 to 0.35-5.5 uIU/ml. 04/18/2007 10:4 8 AM CDT Benedicto Rojo MD CHEMISTRY ORDERABLES Edited Performing Organization Address [facility] Phone Number INTERFACE SYSTEM [...] CHEMISTRY ORDERABLES Edited Performing Organization Address [facility] Phone Number INTERFACE SYSTEM Refer to clinic/hospital department * ETHANOL (04/18/2007 10:48 AM CDT) ETHANOL <10 <=10 mg/dL INTERFACE SYSTEM ETHANOL % <0.010 <=0.010 % INTERFACE SYSTEM Comment: Beginning August 01, 2006, the Blood Alcohol from [facility] will be reported in % as well as mg/dl. 04/18/2007 10:4 8 AM CDT Benedicto Rojo MD CHEMISTRY ORDERABLES Edited Performing Organization Address [facility] Phone Number INTERFACE SYSTEM [...] MD URINE ORDERABLES Edited Performing Organization Address [facility] Phone Number INTERFACE SYSTEM Refer to clinic/hospital department documented in this encounter Visit Diagnoses Diagnosis Bipolar I disorder, most recent episode (or current) mixed, severe, specified as with psychotic behavior ([facility])- Primary Bipolar I disorder, most recent episode (or current) mixed, severe, specified as with psychotic behavior documented in this encounter Additional Health Concerns Infection Onset Date Last Indicated Resolved Time VRE Comment:Urine 10/30/13 Resolved 11/04/2013 11/04/2013 8 10:33 AM DIRECTOR OF HOME CARE HOSPICE R/O COVID-19 12/25/2019 12/25/2019 12/26/2019 2:46 PM CDT R/O COVID-19 05/09/2020 05/09/2020 05/09/2020 12:1 7 PM DIRECTOR OF HOME CARE HOSPICE documented as of this encounter Care Teams Trade Union Secretary Relationship Specialty Start Date End Date Dara Tavera FNP [address] [place] [address] PCP - General NURSE PRACTITIONER 10/13/18 documented as of this encounter
--- OUTSIDE RECORDS SUMMARY | 2025-06-14 20:48 | XMS_ITS | Encounter Summary ---
Author Organization [facility] Address [address] [place] [address] Care Team Providers Care Stock Supervisor Name Role Phone Dara Tavera Primary Care Provider Encounter Details Date Type Department Care Team (Late st Contact Info) Description 05/12/2007 Emergency [facility] Emergency Department [address] [place] [address] Isaac Kovacs PA [address], [place] [address] Neck Sprain and Strain (Primary Dx) Social History Tobacco Use Types Packs/Day Years Used Date Smoking Tobacco: Never Assessed Comments Unknown Sex and Gender Information Value Date Recorded Sex Assigned at Not on file Legal Sex Female 5:22 AM FAST FOOD CREW LEAD Gender Identity Not on file Sexual Orientation Not on file documented as of this encounter Plan of Treatment Not on file documented as of this encounter Visit Diagnoses Diagnosis Sprain of neck- Primary documented in this encounter Additional Health Concerns Infection Onset Date Last Indicated Resolved Time VRE Comment:Urine 10/30/13 Resolved 11/04/2013 11/04/2013 8 10:33 AM FAST FOOD CREW LEAD R/O COVID-19 12/25/2019 12/25/2019 12/26/2019 2:46 PM CDT R/O COVID-19 05/09/2020 05/09/2020 05/09/2020 12:1 7 PM FAST FOOD CREW LEAD documented as of this encounter Care Teams Stock Supervisor Relationship Specialty Start Date End Date Dara Tavera FNP [address] [place] [phone] PCP - General NURSE PRACTITIONER 10/13/18 documented as of this encounter
--- OUTSIDE RECORDS SUMMARY | 2025-06-14 20:48 | XMS_ITS | Encounter Summary ---
Author Organization [facility] Address [address] [place] [address] Care Team Providers Care Booth Cashier Name Role Phone Dara Tavera Primary Care Provider Encounter Details Date Type Department Care Team (Late st Contact Info) Description 04/29/2007 Emergency [facility] Emergency Department [address] [place] [address] Temo Nagel MD [address] [place] [address] Abdominal Pain, Other Specified Site (Primary Dx) Social History Tobacco Use Types Packs/Day Years Used Date Smoking Tobacco: Never Assessed Comments Unknown Sex and Gender Information Value Date Recorded Sex Assigned at Not on file Legal Sex Female 5:22 AM TAPER OPERATOR Gender Identity Not on file Sexual Orientation Not on file documented as of this encounter Plan of Treatment Not on file documented as of this encounter Visit Diagnoses Diagnosis Abdominal pain, other specified site- Primary documented in this encounter Additional Health Concerns Infection Onset Date Last Indicated Resolved Time VRE Comment:Urine 10/30/13 Resolved 11/04/2013 11/04/2013 8 10:33 AM TAPER OPERATOR R/O COVID-19 12/25/2019 12/25/2019 12/26/2019 2:46 PM CDT R/O COVID-19 05/09/2020 05/09/2020 05/09/2020 12:1 7 PM TAPER OPERATOR documented as of this encounter Care Teams Booth Cashier Relationship Specialty Start Date End Date Dara Tavera FNP [address] [place] [phone] PCP - General NURSE PRACTITIONER 10/13/18 documented as of this encounter
--- OUTSIDE RECORDS SUMMARY | 2025-06-14 20:48 | XMS_ITS | Encounter Summary ---
Author Organization [facility] Address [address] [place] [address] Care Team Providers Care Dental Tech Name Role Phone Dara Tavera Primary Care Provider Encounter Details Date Type Department Care Team (Latest Contact Info) Description 09/19/2005 Outpatient Historical [facility] [address] [place] [address] AMBULANCE, [facility] Hemorrhage Complicating a Procedure (Primary Dx) Social History Tobacco Use Types Packs/Day Years Used Date Smoking Tobacco: Never Assessed Comments Unknown Sex and Gender Information Value Date Recorded Sex Assigned at Not on file Legal Sex Female 5:22 AM RADIO SCRIPT WRITER Gender Identity Not on file Sexual Orientation Not on file documented as of this encounter Plan of Treatment Not on file documented as of this encounter Visit Diagnoses Diagnosis Hemorrhage complicating a procedure- Primary documented in this encounter Additional Health Concerns Infection Onset Date Last Indicated Resolved Time VRE Comment:Urine 10/30/13 Resolved 11/04/2013 11/04/2013 8 10:33 AM RADIO SCRIPT WRITER R/O COVID-19 12/25/2019 12/25/2019 12/26/2019 2:46 PM CDT R/O COVID-19 05/09/2020 05/09/2020 05/09/2020 12:1 7 PM RADIO SCRIPT WRITER documented as of this encounter Care Teams Dental Tech Relationship Specialty Start Date End Date Dara Tavera FNP [address] [place] [phone] PCP - General NURSE PRACTITIONER 10/13/18 documented as of this encounter
--- OUTSIDE RECORDS SUMMARY | 2025-06-14 20:48 | XMS_ITS | Encounter Summary ---
Author Organization [facility] Address [address] [place] [address] Care Team Providers Care Director Of Property Management Name Role Phone Dara Tavera Primary Care Provider Encounter Details Date Type Department Care Team (Latest Contact Info) Description 12/03/2005 Outpatient Historical [facility] [address] [place] [address] AMBULANCE, [facility] Disruption of External Operation Wound, not Elsewhere Classified (Primary Dx) Social History Tobacco Use Types Packs/Day Years Used Date Smoking Tobacco: Never Assessed Comments Unknown Sex and Gender Information Value Date Recorded Sex Assigned at Not on file Legal Sex Female 5:22 AM AUTOMATIC PAD MAKING MACHINE OPERATOR Gender Identity Not on file Sexual Orientation Not on file documented as of this encounter Plan of Treatment Not on file documented as of this encounter Visit Diagnoses Diagnosis Disruption of external operation (surgical) wound- Primary documented in this encounter Additional Health Concerns Infection Onset Date Last Indicated Resolved Time VRE Comment:Urine 10/30/13 Resolved 11/04/2013 11/04/2013 8 10:33 AM AUTOMATIC PAD MAKING MACHINE OPERATOR R/O COVID-19 12/25/2019 12/25/2019 12/26/2019 2:46 PM CDT R/O COVID-19 05/09/2020 05/09/2020 05/09/2020 12:1 7 PM AUTOMATIC PAD MAKING MACHINE OPERATOR documented as of this encounter Care Teams Director Of Property Management Relationship Specialty Start Date End Date Dara Tavera FNP [address] [place] [phone] PCP - General NURSE PRACTITIONER 10/13/18 documented as of this encounter
--- OUTSIDE RECORDS SUMMARY | 2025-06-14 20:48 | XMS_ITS | Encounter Summary ---
Author Organization [facility] Address [address] [place] [address] Care Team Providers Care Spinning Machine Operator Name Role Phone Dara Tavera AMANDEEP Primary Care Provider Encounter Details Date Type Department Care Team (Late st Contact Info) Description 04/04/2007 Outpatient [facility] [address] [place] [address] AMBULANCE, [facility] Unspecified Chest Pain (Primary Dx) Social History Tobacco Use Types Packs/Day Years Used Date Smoking Tobacco: Never Assessed Comments Unknown Sex and Gender Information Value Date Recorded Sex Assigned at Not on file Legal Sex Female 5:22 AM CLOUD SECURITY ARCHITECT Gender Identity Not on file Sexual [...] Resolved 11/04/2013 11/04/2013 8 10:33 AM CLOUD SECURITY ARCHITECT R/O COVID-19 12/25/2019 12/25/2019 12/26/2019 2:46 PM CDT R/O COVID-19 05/09/2020 05/09/2020 05/09/2020 12:1 7 PM CLOUD SECURITY ARCHITECT documented as of this encounter Care Teams Spinning Machine Operator Relationship Specialty Start Date End Date Dara Tavera FNP [address] [place] [phone] PCP - General NURSE PRACTITIONER 10/13/18 documented as of this encounter
--- OUTSIDE RECORDS SUMMARY | 2025-06-14 20:48 | XMS_ITS | Encounter Summary ---
Author Organization [facility] Address [address] [place] [address] Care Team Providers Care Treasurer Savings Bank Name Role Phone Dara Tavera AMANDEEP Primary Care Provider Encounter Details Date Type Department Care Team (Late st Contact Info) Description 04/30/2007 Emergency [facility] Emergency Department [address] [place] [address] Jillian Joyce MD [address] [place] [address] Other Acute Pain (Primary Dx) Social History Tobacco Use Types Packs/Day Years Used Date Smoking Tobacco: Never Assessed Comments Unknown Sex and Gender Information Value Date Recorded Sex Assigned at Not on file Legal Sex Female 5:22 AM SAFETY SPEC Gender Identity Not on file Sexual Orientation Not on file documented as of this encounter Plan of Treatment Not on file documented as of this encounter Procedures Procedure Name Priority Date/Time Associated Diagnosis Comments URINALYSIS W/REFLEX MICROSCOPIC Routine 04/30/2007 9:34 PM SAFETY SPEC PT AND APTT Routine 04/30/2007 7:35 PM SAFETY SPEC CBC WITH DIFFERENTIAL Routine 04/30/2007 7:35 PM SAFETY SPEC LIPASE Routine 04/30/2007 7:35 PM SAFETY SPEC COMPREHENSIVE METABOLIC PANEL Routine 04/30/2007 7:35 PM SAFETY SPEC documented in this encounter Results * URINALYSIS (04/30/2007 9:34 PM SAFETY SPEC) COLOR UA Straw Straw INTERFACE SYSTEM CLARITY [...] No No INTERFACE SYSTEM 04/30/2007 9:34 PM SAFETY SPEC us Jillian Joyce MD URINE ORDERABLES Edited INTERFACE SYSTEM Refer to clinic/hospital department * PT AND APTT (04/30/2007 7:35 PM SAFETY SPEC) PROTIME 15.1 13.0 - 15.7 Secs INTERFACE SYSTEM Comment: As of 06 note change in normal range. INR 1.1 INTERFACE SYSTEM Comment: Expected Values for INR: DVT/PE Goal INR 2.5; range 2.0 - 3.0 Valve Replacement Tissue Goal INR 2.5; range 2.0 - 3.0 Mechanical Goal INR 3.0; range 2.5 - 3.5 POST-NE Goal INR 2.5; range 2.0 - 3.0 [...] in APTT Normal Range. 04/30/2007 7:35 PM SAFETY SPEC Jillian Joyce MD HEMATOLOGY ORDERABLES Edit ed Performing Organization Address City/[facility]/ZIP Co de Phone Number INTERFACE SYSTEM Refer to clinic/hospital department * (ABNORMAL) CBC WITH DIFFERENTIAL (04/30/2007 7:35 PM SAFETY SPEC) WBC 18.3(H) 4.5 - 11.0 K/ul INTERFACE [...] 0.2 K/ul INTERFACE SYSTEM 04/30/2007 7:35 PM SAFETY SPEC Jillian Joyce MD HEMATOLOGY ORDERABLES Edit ed INTERFACE SYSTEM Refer to clinic/hospital department * (ABNORMAL) COMPREHENSIVE METABOLIC PANEL (04/30/2007 7:35 PM SAFETY SPEC) GLUCOSE 103 70 - 110 mg/dL INTERFACE [...] 295 mOsm/Kg INTERFACE SYSTEM 04/30/2007 7:35 PM SAFETY SPEC us Jillian Joyce MD CHEMISTRY ORDERABLES Edite d Performing Organization Address [facility] Phone Number INTERFACE SYSTEM Refer to clinic/hospital department * LIPASE (04/30/2007 7:35 PM SAFETY SPEC) LIPASE 23 6 - 51 U/L INTERFACE SYSTEM 04/30/2007 7:35 PM SAFETY SPEC Jillian Joyce MD CHEMISTRY ORDERABLES Edite d Performing Organization Address [facility] Co de Phone Number INTERFACE SYSTEM Refer to clinic/hospital department documented in this encounter Visit Diagnoses Diagnosis Other acute pain- Primary documented in this encounter Additional Health Concerns Infection Onset Date Last Indicated Resolved Time VRE Comment:Urine 10/30/13 Resolved 11/04/2013 11/04/2013 8 10:33 AM SAFETY SPEC R/O COVID-19 12/25/2019 12/25/2019 12/26/2019 2:46 PM CDT R/O COVID-19 05/09/2020 05/09/2020 05/09/2020 12:1 7 PM SAFETY SPEC documented as of this encounter Care Teams Treasurer Savings Bank Relationship Specialty Start Date End Date Dara Tavera FNP [address] [place] [phone] PCP - General NURSE PRACTITIONER 10/13/18 documented as of this encounter
--- OUTSIDE RECORDS SUMMARY | 2025-06-14 20:49 | XMS_ITS | Encounter Summary ---
Author Organization [facility] Address [address] [place] [address] Care Team Providers Care Creative Specialist Name Role Phone Dara Tavera AMANDEEP Primary Care Provider Encounter Details Date Type Department Care Team (Late st Contact Info) Description 01/15/2007 Emergency [facility] Emergency Department [address] [place] [address] Raji Reyes MD NO ADDRESS ON FILE Unspecified, Hemorrhage of Gastrointestinal Tract (Primary Dx) Social History Tobacco Use Types Packs/Day Years Used Date Smoking Tobacco: Never Assessed Comments Unknown Sex and Gender Information Value Date Recorded Sex Assigned at Not on file Legal Sex Female 5:22 AM MANAGER LEADERSHIP DEVELOPMENT Gender Identity Not on file Sexual [...] during normal , as reported by the brancher, are summarized as follows: Gestational Age Expected hCG Values (mIU/ml) 0.2-1 Weeks 5 - 50 1-2 Weeks 50 - 500 2-3 Weeks 100 - 5,000 3-4 Weeks 1,000 - 50,000 5-6 Weeks 10,000 - 100,000 6-8 Weeks 15,000 - 200,000 2-3 Months 10,000 - 100,000 01/15/2007 9:00 AM CDT us Raji Reyes MD CHEMISTRY ORDERABLES Edited Performing Organization Address [facility] de Phone Number INTERFACE SYSTEM Refer to clinic/hospital department * LIPASE (01/15/2007 9:00 AM CDT) LIPASE 27 6 - 51 U/L INTERFACE SYSTEM Comment: As of 05 the [facility] has changed testing methods. The new reference range is 6-51 The old referance range was 23-300 01/15/2007 9:00 AM CDT Raji Reyes MD CHEMISTRY ORDERABLES Edited Performing Organization Address [facility] de Phone Number INTERFACE SYSTEM Refer to clinic/hospital department * (ABNORMAL) COMPREHENSIVE METABOLIC PANEL (01/15/2007 9:00 AM CDT) GLOBULIN (CALC) 2.8 2.4 - 3.9 g/dL [...] Resolved 11/04/2013 11/04/2013 8 10:33 AM MANAGER LEADERSHIP DEVELOPMENT R/O COVID-19 12/25/2019 12/25/2019 12/26/2019 2:46 PM CDT R/O COVID-19 05/09/2020 05/09/2020 05/09/2020 12:1 7 PM MANAGER LEADERSHIP DEVELOPMENT documented as of this encounter Care Teams Creative Specialist Relationship Specialty Start Date End Date Dara Tavera FNP [address] [place] [phone] PCP - General NURSE PRACTITIONER 10/13/18 documented as of this encounter
--- OUTSIDE RECORDS SUMMARY | 2025-06-14 20:49 | XMS_ITS | Encounter Summary ---
Author Organization [facility] Address [address] [place] [address] Care Team Providers Care Work Study Student Name Role Phone Dara Tavera Primary Care Provider Encounter Details Date Type Department Care Team (Latest Contact Info) Description 02/22/2006 Outpatient Historical [facility] [address] [place] [address] AMBULANCE, [facility] Cervicalgia (Primary Dx) Social History Tobacco Use Types Packs/Day Years Used Date Smoking Tobacco: Never Assessed Comments Unknown Sex and Gender Information Value Date Recorded Sex Assigned at Not on file Legal Sex Female 5:22 AM BANK OPERATIONS OFFICER Gender Identity Not on file Sexual Orientation Not on file documented as of this encounter Plan of Treatment Not on file documented as of this encounter Visit Diagnoses Diagnosis Cervicalgia- Primary documented in this encounter Additional Health Concerns Infection Onset Date Last Indicated Resolved Time VRE Comment:Urine 10/30/13 Resolved 11/04/2013 11/04/2013 8 10:33 AM BANK OPERATIONS OFFICER R/O COVID-19 12/25/2019 12/25/2019 12/26/2019 2:46 PM CDT R/O COVID-19 05/09/2020 05/09/2020 05/09/2020 12:1 7 PM BANK OPERATIONS OFFICER documented as of this encounter Care Teams Work Study Student Relationship Specialty Start Date End Date Dara Tavera FNP [address] [place] [phone] PCP - General NURSE PRACTITIONER 10/13/18 documented as of this encounter
--- OUTSIDE RECORDS SUMMARY | 2025-06-14 20:49 | XMS_ITS | Encounter Summary ---
Author Organization [facility] Address [address] [place] [address] Care Team Providers Care Police Surgeon Name Role Phone Dara Tavera Primary Care Provider [phone] Encounter Details Date Type Department Care Team (Latest Contact Info) Description 11/20/2006 Outpatient Historical [facility] [address] [place] [address] AMBULANCE, [facility] Pain in Joint, Shoulder Region (Primary Dx) Social History Tobacco Use Types Packs/Day Years Used Date Smoking Tobacco: Never Assessed Comments Unknown Sex and Gender Information Value Date Recorded Sex Assigned at Not on file Legal Sex Female 5:22 AM LITHOGRAPHIC PRESS FEEDER Gender Identity Not on file Sexual Orientation Not on file documented as of this encounter Plan of Treatment Not on file documented as of this encounter Visit Diagnoses Diagnosis Pain in joint, shoulder region- Primary documented in this encounter Additional Health Concerns Infection Onset Date Last Indicated Resolved Time VRE Comment:Urine 10/30/13 Resolved 11/04/2013 11/04/2013 8 10:33 AM LITHOGRAPHIC PRESS FEEDER R/O COVID-19 12/25/2019 12/25/2019 12/26/2019 2:46 PM CDT R/O COVID-19 05/09/2020 05/09/2020 05/09/2020 12:1 7 PM LITHOGRAPHIC PRESS FEEDER documented as of this encounter Care Teams Police Surgeon Relationship Specialty Start Date End Date Dara Tavera FNP [address] [place] [phone] PCP - General NURSE PRACTITIONER 10/13/18 documented as of this encounter
--- OUTSIDE RECORDS SUMMARY | 2025-06-14 20:49 | XMS_ITS | Encounter Summary ---
Author Organization [facility] Address [address] [place] [address] Care Team Providers Care Care Giver Name Role Phone Dara Tavera [facility]ROL [facility] Primary Care Provider [phone] Reason for Referral * Outpatient Services (Routine) - Closed Specialty Diagnoses / Procedures Referred By Contac t Referred To Contact Radiology Diagnoses Chest pain, unspecified chest pain type SOB (shortness of breath) on exertion Procedures ECHO STRESS W CONTRAST EXER W DOPP AND COLOR FL ECHO STRESS TEST EXERCISE W DOPP AND COLOR FLOW Jorge Taylor MD [facility] [address] [place] [address] Phone: tel: fax: Referral ID Status Reason Start Date Expiration Date V isits Requested Visits Authorized [id number] Closed SGF [facility] TO SCHEDULE (SGF) 10/05/2015 11/04/2016 1 1 Encounter Details Date Type Department Care Team (Latest Contact Info) Description 10/05/2015 Ancillary Orders [facility] Pulmonology [facility] [address] [place] [address] Jorge Taylor MD NO ADDRESS [...] file Legal Sex Female 5:22 AM MELT ROOM OPERATOR Gender Identity Not on file [...] INTERFACE SYSTEM - 10/05/2015 12:22 PM CDT [facility] Echocardiography-[address] [place] [address] Stress Echocardiography Rafy protocol Patient: Choco Study ECHO STRESS Latesha Solis ID: TEST Gender: Jaye : 1965 Age: 49 Room: Study 10/05/2015 Pt Outpatient Date: Status: Study 11:16 AM [facility] #: [id number] Time: Ordering:Jorge Taylor Interpreting:Stephen Alberts MD Financial Writer: Rosario Cam [facility] Indications and History: Chest Pain, [...] peak heart rate and blood pressure was 78685pg Hg/min. Functional capacity was decreased (greater than [...] peak heart rate and blood pressure was 85150we Hg/min. Functional capacity was decreased (greater than [...] (*) waterman values outside specified normal range. [facility] are accredited with the Intersocietal Accreditation Commission - Echocardiography. Prepared and Electronically Authenticated Stephen Alberts MD Confirmed 10/05/2015 12:22 Procedure Note Stephen Alberts MD - 10/05/2015 [facility] Echocardiography-[address] [facility] [address] [place] [address] Stress Echocardiography Rafy protocol Patient: Choco Study ECHO STRESS Latesha Solis ID: TEST Gender: F : 1965 Age: 49 Room: Study 10/05/2015 Pt Outpatient Date: Status: Study 11:16 AM CSN #: [id number] Time: Ordering:Jorge Taylor Interpreting:Stephen Alberts MD Financial Writer: Rosario Cam [facility] Indications and History: Chest Pain, [...] peak heart rate and blood pressure was 82687zi Hg/min. Functional capacity was decreased (greater than [...] peak heart rate and blood pressure was 78077pk Hg/min. Functional capacity was decreased (greater than [...] (*) waterman values outside specified normal range. [facility] are accredited with the [...] Resolved 11/04/2013 11/04/2013 8 10:33 AM MELT ROOM OPERATOR R/O COVID-19 12/25/2019 12/25/2019 12/26/2019 2:46 PM CDT R/O COVID-19 05/09/2020 05/09/2020 05/09/2020 12:1 7 PM MELT ROOM OPERATOR documented as of this encounter Care Teams Care Giver Relationship Specialty Start Date End Date Dara Tavera FNP [address] [place] [address] PCP - General NURSE PRACTITIONER 10/13/18 documented as of this encounter
--- OUTSIDE RECORDS SUMMARY | 2025-06-14 20:49 | XMS_ITS | Encounter Summary ---
Author Organization [facility] Address [address] [place] [address] Care Team Providers Care Medical Chemist Name Role Phone Dara Tavera BARREL LEVELER Primary Care Provider Encounter Details Date Type [...] file Legal Sex Female 5:22 AM HEAD SILVERMAN Gender Identity Not on file Sexual Orientation [...] By: Lionel Hays M.D. Electronically Signed By: iLonel Hays M.D. Date Signed: 11/29/06 [facility] Procedure Note 05/09/2009 Multiplanar imaging of [...] By: Lionel Hays M.D. Date Signed: 11/29/06 [facility] Luis Ross MD MR ORDERABLES Final Result [...] 10/30/13 Resolved 11/04/2013 11/04/2013 8 10:33 AM HEAD SILVERMAN R/O COVID-19 12/25/2019 12/25/2019 12/26/2019 2:46 PM CDT R/O COVID-19 05/09/2020 05/09/2020 05/09/2020 12:1 7 PM HEAD SILVERMAN documented as of this encounter Care Teams Medical Chemist Relationship Specialty Start Date End Date Dara Tavera FNP [address] [place] [phone] PCP - General NURSE PRACTITIONER 10/13/18 documented as of this encounter
--- OUTSIDE RECORDS SUMMARY | 2025-06-14 20:49 | XMS_ITS | Encounter Summary ---
Author Organization [facility] Address [address] [place] [address] Care Team Providers Care Noodle Maker Name Role Phone Dara Tavera Primary Care Provider Encounter Details Date Type Department Care Team (Latest Contact Info) Description 04/15/2006 Outpatient Historical [facility] [address] [place] [address] AMBULANCE, [facility] Unspecified Nonpsychotic Mental Disorder (Primary Dx) Social History Tobacco Use Types Packs/Day Years Used Date Smoking Tobacco: Never Assessed Comments Unknown Sex and Gender Information Value Date Recorded Sex Assigned at Not on file Legal Sex Female 5:22 AM MOLDER VACUUM Gender Identity Not on file Sexual Orientation Not on file documented as of this encounter Plan of Treatment Not on file documented as of this encounter Visit Diagnoses Diagnosis Unspecified nonpsychotic mental disorder- Primary documented in this encounter Additional Health Concerns Infection Onset Date Last Indicated Resolved Time VRE Comment:Urine 10/30/13 Resolved 11/04/2013 11/04/2013 8 10:33 AM MOLDER VACUUM R/O COVID-19 12/25/2019 12/25/2019 12/26/2019 2:46 PM CDT R/O COVID-19 05/09/2020 05/09/2020 05/09/2020 12:1 7 PM MOLDER VACUUM documented as of this encounter Care Teams Noodle Maker Relationship Specialty Start Date End Date Dara Tavera FNP [address] [place] [phone] PCP - General NURSE PRACTITIONER 10/13/18 documented as of this encounter
--- OUTSIDE RECORDS SUMMARY | 2025-06-14 20:49 | XMS_ITS | Encounter Summary ---
Author Organization [facility] Address [address] [place] [address] Care Team Providers Care Consumer Loan Officer Name Role Phone Dara Tavera Primary Care Provider [phone] Encounter Details Date Type Department Care Team (Latest Contact Info) Description 04/13/2006 Outpatient Historical [facility] Ambulance [address] [place] [address] AMBULANCE, [facility] Nausea with Vomiting (Primary Dx) Social History Tobacco Use Types Packs/Day Years Used Date Smoking Tobacco: Never Assessed Comments Unknown Sex and Gender Information Value Date Recorded Sex Assigned at Not on file Legal Sex Female 5:22 AM BEEKEEPER Gender Identity Not on file Sexual Orientation Not on file documented as of this encounter Plan of Treatment Not on file documented as of this encounter Visit Diagnoses Diagnosis Nausea with vomiting- Primary documented in this encounter Additional Health Concerns Infection Onset Date Last Indicated Resolved Time VRE Comment:Urine 10/30/13 Resolved 11/04/2013 11/04/2013 8 10:33 AM BEEKEEPER R/O COVID-19 12/25/2019 12/25/2019 12/26/2019 2:46 PM CDT R/O COVID-19 05/09/2020 05/09/2020 05/09/2020 12:1 7 PM BEEKEEPER documented as of this encounter Care Teams Consumer Loan Officer Relationship Specialty Start Date End Date Dara Tavera FNP [address] [place] [phone] PCP - General NURSE PRACTITIONER 10/13/18 documented as of this encounter
--- OUTSIDE RECORDS SUMMARY | 2025-06-14 20:49 | XMS_ITS | Encounter Summary ---
Author Organization [facility] Address [address] [place] [address] Care Team Providers Care Switch Cleaner Name Role Phone Dara Tavera Primary Care Provider Encounter Details Date Type Department Care Team (Latest Contact Info) Description 02/07/2006 Outpatient Historical [facility] Medicine [place] [address] [facility] [address] [place] [address] Ryan Don NP NO ADDRESS ON FILE Polydipsia (Primary Dx); Nausea Alone; Open Wnd Anterior Abdomen Social History Tobacco Use Types Packs/Day Years Used Date Smoking Tobacco: Never Assessed Comments Unknown Sex and Gender Information Value Date Recorded Sex Assigned at Not on file Legal Sex Female 5:22 AM TOP TILE DECORATOR Gender Identity Not on file Sexual [...] 10/30/13 Resolved 11/04/2013 11/04/2013 8 10:33 AM TOP TILE DECORATOR R/O COVID-19 12/25/2019 12/25/2019 12/26/2019 2:46 PM CDT R/O COVID-19 05/09/2020 05/09/2020 05/09/2020 12:1 7 PM TOP TILE DECORATOR documented as of this encounter Care Teams Switch Cleaner Relationship Specialty Start Date End Date Dara Tavera FNP [address] [place] [address] PCP - General NURSE PRACTITIONER 10/13/18 documented as of this encounter
--- OUTSIDE RECORDS SUMMARY | 2025-06-14 20:49 | XMS_ITS | Encounter Summary ---
Author Organization [facility] Address [address] [place] [address] Care Team Providers Care Association Executive Name Role Phone Dara Tavera Primary Care Provider Encounter Details Date Type Department Care Team (Latest Contact Info) Description 02/04/2007 Outpatient Historical [facility] Ambulance [address] [place] [address] AMBULANCE, [facility] Cervicalgia (Primary Dx) Social History Tobacco Use Types Packs/Day Years Used Date Smoking Tobacco: Never Assessed Comments Unknown Sex and Gender Information Value Date Recorded Sex Assigned at Not on file Legal Sex Female 5:22 AM CONTACT AND SERVICE CLERKS SUPERVISOR Gender Identity Not on file Sexual Orientation Not on file documented as of this encounter Plan of Treatment Not on file documented as of this encounter Visit Diagnoses Diagnosis Cervicalgia- Primary documented in this encounter Additional Health Concerns Infection Onset Date Last Indicated Resolved Time VRE Comment:Urine 10/30/13 Resolved 11/04/2013 11/04/2013 8 10:33 AM CONTACT AND SERVICE CLERKS SUPERVISOR R/O COVID-19 12/25/2019 12/25/2019 12/26/2019 2:46 PM CDT R/O COVID-19 05/09/2020 05/09/2020 05/09/2020 12:1 7 PM CONTACT AND SERVICE CLERKS SUPERVISOR documented as of this encounter Care Teams Association Executive Relationship Specialty Start Date End Date Dara Tavera FNP [address] [place] [phone] PCP - General NURSE PRACTITIONER 10/13/18 documented as of this encounter
--- OUTSIDE RECORDS SUMMARY | 2025-06-14 20:49 | XMS_ITS | Encounter Summary ---
Author Organization [facility] Address [address] [place] [address] Care Team Providers Care Milk Vendor Name Role Phone Dara Tavera Primary Care Provider Encounter Details Date Type Department Care Team (Latest Contact Info) Description 04/08/2006 Outpatient Historical [facility] Ambulance [address] [place] [address] AMBULANCE, [facility] Unspecified Epilepsy without Mention of Intractable Epilepsy (CMS/HCC) (Primary Dx) Social History Tobacco Use Types Packs/Day Years Used Date Smoking Tobacco: Never Assessed Comments Unknown Sex and Gender Information Value Date Recorded Sex Assigned at Not on file Legal Sex Female 5:22 AM HIGH SCHOOL TEACHER Gender Identity Not on file Sexual [...] 11/04/2013 11/04/2013 8 10:33 AM HIGH SCHOOL TEACHER R/O COVID-19 12/25/2019 12/25/2019 12/26/2019 2:46 PM CDT R/O COVID-19 05/09/2020 05/09/2020 05/09/2020 12:1 7 PM HIGH SCHOOL TEACHER documented as of this encounter Care Teams Milk Vendor Relationship Specialty Start Date End Date Dara Tavera FNP [address] [place] [address] PCP - General NURSE PRACTITIONER 10/13/18 documented as of this encounter
--- OUTSIDE RECORDS SUMMARY | 2025-06-14 20:49 | XMS_ITS | Encounter Summary ---
Author Organization [facility] Address [address] [place] [address] Care Team Providers Care State Fire Marshal Name Role Phone Dara Tavera Primary Care Provider Encounter Details Date Type Department Care Team (Late st Contact Info) Description 11/05/2006 Outpatient Historical [facility] Ambulance [address] [place] [address] AMBULANCE, [facility] Social History Tobacco Use Types Packs/Day Years Used Date Smoking Tobacco: Never Assessed Comments Unknown Sex and Gender Information Value Date Recorded Sex Assigned at Not on file Legal Sex Female 5:22 AM BULL DRIVER Gender Identity Not on file Sexual Orientation Not on file documented as of this encounter Plan of Treatment Not on file documented as of this encounter Visit Diagnoses Not on filedocumented in this encounter Additional Health Concerns Infection Onset Date Last Indicated Resolved Time VRE Comment:Urine 10/30/13 Resolved 11/04/2013 11/04/2013 8 10:33 AM BULL DRIVER R/O COVID-19 12/25/2019 12/25/2019 12/26/2019 2:46 PM CDT R/O COVID-19 05/09/2020 05/09/2020 05/09/2020 12:1 7 PM BULL DRIVER documented as of this encounter Care Teams State Fire Marshal Relationship Specialty Start Date End Date Dara Tavera FNP [address] [place] [phone] PCP - General NURSE PRACTITIONER 10/13/18 documented as of this encounter
--- OUTSIDE RECORDS SUMMARY | 2025-06-14 20:49 | XMS_ITS | Clinical Summary ---
Author Organization [facility] Address [address] [place] [address] Care Team Providers Care Corporate Recruiter Name Role Phone Sally Dong MD Primary Care Provider [phone] Allergies Active Allergy Reactions Criticality Noted Date Comments Adhesive Rash Low 02/12/2009 Codeine Nausea and Vomiting Low 02/12/2009 Duloxetine Other (See Comments) 02/24/2015 Fentanyl Hives High 11/07/2019 Fluoxetine Unknown 10/20/2018 Gabapentin Unknown,Hallucination Low 02/12/2009 Haloperidol Unknown 01/04/2022 Tardive dyskinesia Ketorolac Tromethamine Other (See Comments) Low Adverse drug reaction [place] Unknown 02/12/2009 Other reaction(s): shakey Metoclopramide Hcl [...] for Nausea/Emesis. Active naloxone (NARCAN) 4 mg/spray [place], Non-Aerosol EMERGENCY USE ONLY: Administer 1 spray [...] times daily as needed for Spasm. Active doxycycline hyclate (VIBRAMYCIN) 100 mg capsuleIndicati ons:Oral abscess Take 1 Capsule (100 mg) by mouth 2 times daily for 7 days. 14 Capsule 06/09/20 25 025 Active Active Problems Problem Noted [...] Hematochezia 07/07/2009 10/26/2012 Personal history of MRSA (ct thicillin resistant Staphylococcus aureus) 06/27/2009 018 Overview (10/14/2020): Under the arm abscess ~ 2014 Fever and chills 02/12/2009 10/26/2012 Hypoxemia 02/12/2009 04/06/2014 Encounters Date Type Department Care Team Description 06/09/2025 12:20 PM CATALOGUE CLERK Office Visit [facility] [place] [address] [facility] [address] [place] [address] Shayla Keating, AMANDEEP Oral abscess (Primary Dx) 05/19/2025 6:45 AM CATALOGUE CLERK - 05/19/2025 11:59 PM CATALOGUE CLERK Hospital Encounter [facility] [place] [address] [facility] [address] [place] [address] Amb[facility], [facility] Discharge Disposition: Short term general hospital 05/11/2025 6:20 AM CATALOGUE CLERK - 05/11/2025 11:59 PM CATALOGUE CLERK Hospital Encounter [facility] [address] [facility] [address] [place] [address] Ambulance, [facility] Discharge Disposition: [facility] 05/08/2025 5:30 AM CATALOGUE CLERK - 05/08/2025 11:59 PM CATALOGUE CLERK Hospital Encounter [facility] [address] [facility] [address] [place] [address] Ambulance, [facility] Discharge Disposition: [facility] 05/01/2025 5:15 AM CATALOGUE CLERK - 05/01/2025 11:59 PM CATALOGUE CLERK Hospital Encounter [address] [place] [address] Ambulance, [facility] Discharge Disposition: [facility] 04/29/2025 6:20 AM CATALOGUE CLERK - 04/29/2025 11:59 PM CATALOGUE CLERK Hospital Encounter [facility] [address] [facility] [address] [place] [address] Ambulance, [facility] Discharge Disposition: [facility] 04/20/2025 5:25 AM CATALOGUE CLERK - 04/20/2025 11:59 PM CATALOGUE CLERK Hospital Encounter [facility] [address] [facility] [address] [place] [address] Ambulance, [facility] Discharge Disposition: [facility] 04/19/2025 8:27 PM CDT - 04/19/2025 9:59 PM CDT Emergency [facility] Emergency Medicine [address] [facility] [address] [place] [address] Tommy Matthews MD Sprain of right shoulder, unspecified shoulder sprain type, initial encounter (Primary Dx) Discharge Disposition: Home or Self Care 04/19/2025 Travel 04/10/2025 1:07 PM CDT - 04/10/2025 11:59 PM CDT Hospital Encounter [facility] [address] [facility] [address] [place] [address] Dara Tavera FNP Discharge Disposition: Home or Self Care 04/10/2025 Orders Only [facility] Admitting [address] [facility] [address] [place] [address] Dara Tavera, DISH STACKER Low back pain with sciatica, sciatica laterality unspecified, unspecified back pain laterality, unspecified chronicity (Primary Dx) 04/07/2025 10:00 PM CDT - 04/08/2025 12:56 AM CDT Emergency [facility] Emergency Medicine [address] [facility] [address] [place] [address] Tommy Matthews MD Right flank pain (Primary Dx) Discharge Disposition: Home or Self Care 04/07/2025 Travel 03/23/2025 12:30 AM CDT - 03/23/2025 11:59 PM CDT Hospital Encounter [facility] [place] [address] [facility] [address] [place] [address] Ambulance, [facility] Discharge Disposition: Short formerly [facility] 03/18/2025 8:36 AM CDT - 03/18/2025 10:03 AM CDT Emergency [facility] Emergency Medicine [address] [facility] [address] [place] [address] Neck pain (Primary Dx) Discharge Disposition: Home [...] often do you attend oriental orthodox or methodist serv ices? Not asked 05/05/2019 [...] worry about transportation for future doctor visits, hop picker medication, etc.? No 2024 Housing Stability [...] PM CDT Legal Sex Female 2:06 AM CATALOGUE CLERK Gender Identity Female 03/25/2024 4:14 PM CDT Sexual Orientation Not on file Last Filed Vital Signs Vital Sign Reading Time Taken Comments Blood Pressure 138/86 06/09/2025 11:29 AM CATALOGUE CLERK Pulse 102 06/09/2025 11:29 AM CATALOGUE CLERK Temperature 36.7 C (98 F) 06/09/2025 11:29 AM CATALOGUE CLERK Respiratory Rate 17 06/09/2025 11:29 AM CATALOGUE CLERK Oxygen Saturation 96% 06/09/2025 11:29 AM CATALOGUE CLERK Inhaled Oxygen Concentration - - Weight 77.1 kg (170 lb) 06/09/2025 11:29 AM CATALOGUE CLERK Height 157.5 cm (5' 2 ) 06/09/2025 11:29 AM CATALOGUE CLERK Body Mass Index 31.09 06/09/2025 11:29 AM CATALOGUE CLERK Plan of Treatment Health Maintenance Due Date [...] Additional history exists COVID-19 Vaccine (3 - 5-2 6 season) 2025 05/08/2024, 09/24/2020 Procedures Procedure [...] W/REFLEX MICROSCOPIC Stat 04/07/2025 9:30 PM CDT HEMOGLOBIN A1C Routine 06/17/2018 7:12 AM CATALOGUE CLERK from Last 3 Months or Most Recently [...] degree thoracic spine degenerative changes and scoliosis. Tobiaschauncey Ayse DISH STACKER DIAGNOSTIC IMAGING ORDERABL ES Final Result * (ABNORMAL) CBC WITH DIFFERENTIAL (04/07/2025 11:58 PM CDT) WBC 16.1(H) 4.0 - 10.0 K/uL 04/08/2025 12:26 AM [facility] RBC 3.99 3.93 - 5.22 M/uL 04/08/2025 12:26 AM [facility] HEMOGLOBIN 13.3 11.2 - 15.7 g/dL 04/08/2025 12:26 AM [facility] HEMATOCRIT 38.3 34.1 - 44.9 % 04/08/2025 12:26 AM [facility] MCV 96.0(H) 79.4 - 94.8 fL 04/08/2025 12:26 AM [facility] MCH 33.3(H) 25.6 - 32.2 pg 04/08/2025 12:26 AM [facility] MCHC 34.7 32.2 - 35.5 g/dL 04/08/2025 12:26 AM [facility] RDW 12.7 11.0 - 14.5 % 04/08/2025 12:26 AM [facility] RDW-STDEV 44.9 36.9 - 56.9 fL 04/08/2025 12:26 AM [facility] PLATELETS 234 163 - 337 K/uL 04/08/2025 12:26 AM [facility] MPV 9.8(L) 10.0 - 14.8 fL 04/08/2025 12:26 AM [facility] NEUTROPHILS 75(H) 34 - 71 % 04/08/2025 12:26 AM [facility] LYMPHOCYTES 16(L) 19 - 52 % 04/08/2025 12:26 AM [facility] MONOCYTES 6 5 - 13 % 04/08/2025 12:26 AM [facility] EOSINOPHILS 2 1 - 6 % 04/08/2025 12:26 AM [facility] BASOPHILS 1 0 - 1 % 04/08/2025 12:26 AM [facility] IMMATURE GRANULOCYTES 0 % 04/08/2025 12:26 AM [facility] NEUTROPHIL ABSOLUTE 12.05(H) 1.56 - 6.13 K/uL 04/08/2025 12:26 AM [facility] LYMPHOCYTE ABSOLUTE 2.57 1.20 - 3.40 K/uL 04/08/2025 12:26 AM [facility] MONOCYTE ABSOLUTE 0.99(H) 0.24 - 0.36 K/uL 04/08/2025 12:26 AM [facility] EOSINOPHIL ABSOLUTE 0.27 0.04 - 0.36 K/uL 04/08/2025 12:26 AM [facility] BASOPHILS ABSOLUTE 0.12(H) 0.01 - 0.08 K/uL 04/08/2025 12:26 AM [facility] IMMATURE GRANULOCYTES ABSOLUTE 0.05 K/uL 04/08/2025 12:26 AM [facility] Blood BLOOD SPECIMEN / Unknown Collection / Unknown 04/07/2025 11:58 PM CDT 04/08/2025 12:22 AM T us Tommy Matthews MD HEMATOLOGY ORDERABLES Fi nal Result [facility] CLIA # [id number] [address] [place] [id number] * LIPASE (04/07/2025 11:58 PM CDT) LIPASE 20 13 - 60 U/L 04/08/2025 12:42 AM [facility] Blood BLOOD SPECIMEN / Unknown Collection / Unknown 04/07/2025 11:58 PM CDT 04/08/2025 12:22 AM CDT Tommy Matthews MD CHEMISTRY ORDERABLES [facility] al Result [facility] CLIA # [id number] [address] [place] [id number] * (ABNORMAL) COMPREHENSIVE METABOLIC PANEL (04/07/2025 11:58 PM CDT) Pathologist [facility] SODIUM 134(L) 136 - 145 mmol/L 04/08/2025 12:42 AM [facility] POTASSIUM 3.7 3.5 - 5.1 mmol/L 04/08/2025 12:42 AM [facility] CHLORIDE 99 98 - 107 mmol/L 04/08/2025 12:42 AM [facility] CO2 24 22 - 29 mmol/L 04/08/2025 12:42 AM [facility] CALCIUM 9.9 8.6 - 10.0 mg/dL 04/08/2025 12:42 AM [facility] BUN 14 6 - 20 mg/dL 04/08/2025 12:42 AM [facility] CREATININE 0.97(H) 0.51 - 0.95 mg/dL 04/08/2025 12:42 AM [facility] GLUCOSE 100(H) 74 - 99 mg/dL 04/08/2025 12:42 AM [facility] TOTAL PROTEIN 6.7 6.6 - 8.7 g/dL 04/08/2025 12:42 AM [facility] ALBUMIN 4.1 3.5 - 5.2 g/dL 04/08/2025 12:42 AM [facility] BILIRUBIN TOTAL 0.2 0.0 - 1.2 mg/dL 04/08/2025 12:42 AM CDT [facility] ALKALINE PHOSPHATASE 121(H) 35 - 104 U/L 04/08/2025 12:42 AM CDT [facility] AST 16 0 - 35 U/L 04/08/2025 12:42 AM CDT [facility] ALT 10 0 - 35 U/L 04/08/2025 12:42 AM CDT [facility] GFR >60 >=60 mL/min/1.7 3 sq meter 04/08/2025 12:42 AM CDT [facility] Comment:eGFR calculated with 2020 CKD-EPI equation. Vegetarian diet, extremely high or low muscle mass, and may affect results. Cystatin C with Glomerular Filtration Rate is a suitable alternative for these patients. ANION GAP 11 5 - 20 mmol/L 04/08/2025 12:42 AM CDT [facility] Blood BLOOD SPECIMEN / Unknown Collection / Unknown 04/07/2025 11:58 PM CDT 04/08/2025 12:22 AM CDT us Tommy Matthews MD CHEMISTRY ORDERABLES Fin al Result Performing Organization Address City/State/[facility] Co de Phone Number [facility] # [id number] [address] [place] [id number] * CT ABDOMEN PELVIS WO CONTRAST (04/07/2025 [...] - 2 /hpf 04/07/2025 9:37 PM CDT [facility] RBC UA 0-2 0 - 2 /hpf 04/07/2025 9:37 PM CDT [facility] BACTERIA UA Negative Negative /hpf 04/07/2025 9:37 PM CDT [facility] EPITHELIAL CELLS, URINE 0-5 0 - 5 /hpf 04/07/2025 9:37 PM CDT [facility] Urine URINE SPECIMEN OBTAINED BY CLEAN CATCH PROCEDURE / Unknown Collection / Unknown 04/07/2025 9:30 PM CDT 04/07/2025 9:34 PM CDT Tommy Matthews MD URINE ORDERABLES Final R esult [facility] CLIA # [id number] [address] [place] [id number] * (ABNORMAL) URINALYSIS WITH REFLEX MICROSCOPIC (04/07/2025 9:30 PM CDT) COLOR UA Yellow Pale to Dark Yellow 04/07/2025 9:37 PM CDT [facility] CLARITY UA Clear Clear 04/07/2025 9:37 PM CDT [facility] SPECIFIC GRAVITY UA <=1.005 1.003 - 1.035 04/07/2025 9:37 PM CDT [facility] PH UA 6.0 5.0 - 8.0 04/07/2025 9:37 PM CDT [facility] LEUKOCYTE ESTERASE UA 1+(A) Negative 04/07/2025 9:37 PM CDT [facility] NITRITE UA Negative Negative 04/07/2025 9:37 PM CDT [facility] PROTEIN UA Negative Negative 04/07/2025 9:37 PM CDT [facility] GLUCOSE UA Negative Negative 04/07/2025 9:37 PM CDT [facility] KETONES UA Negative Negative 04/07/2025 9:37 PM CDT [facility] UROBILINOGEN UA 0.2 <2.0 mg/dL 9:37 PM CDT [facility] BILIRUBIN UA Negative Negative 04/07/2025 9:37 PM CDT [facility] BLOOD UA Negative Negative 04/07/2025 9:37 PM CDT [facility] Urine URINE SPECIMEN OBTAINED BY CLEAN CATCH PROCEDURE / Unknown Collection / Unknown 04/07/2025 9:30 PM CDT 04/07/2025 9:34 PM CDT us Tommy Matthews MD URINE ORDERABLES Final R esult [facility] CLIA # [id number] [address] [place] [id number] * HEMOGLOBIN A1C (06/17/2018 7:12 AM CATALOGUE CLERK) HEMOGLOBIN A1C 5.2 4.8 - 5.9 % 06/17/2018 9:37 AM CATALOGUE CLERK [facility] EST. AVG GLUCOSE, A1C 103 mg/dL 06/17/2018 9:37 AM CATALOGUE CLERK [facility] Blood Venipuncture / Unknown 06/17/2018 7:12 AM CATALOGUE CLERK 06/17/2018 7:13 AM CATALOGUE CLERK Narrative [facility] - 06/17/2018 9:37 AM CATALOGUE CLERK If not available from last three months. HGB A1C INTERPRETATION NORMAL: <5.7% PRE-DIABETES: 5.7 - 6.4% DIABETES: 6.5% OR GREATER us Benedicto Mcgill MD CHEMISTRY ORDERABLES Final Result [facility] CLIA # [id number] [address] [place] [id number] [facility] CLIA # [id number] [address] [place] [id number] from Last 3 Months or Most Recently Relevant to Health Maintenance Insurance [place] DUAL COMPLETE HMO DSNP [facility] [id number] [place] Advance Directives For more information, please contact: [phone] Documents on File Type Date Recorded Patient Director Security Management Expl anation Advance Directive POA 02/23/2024 3:51 [...] 1:52 AM 10/27/2021 2:07 PM Care Teams Corporate Recruiter Relationship Specialty Start Date End Date Sally Dong MD [address] [phone] PCP - General Family Practice 04/07/22
--- OUTSIDE RECORDS SUMMARY | 2025-06-14 20:49 | XMS_ITS | Encounter Summary ---
Author Organization [facility] Address [address] [place] [address] Care Team Providers Care Bessemer Converter Operator Name Role Phone Dara Tavera Primary Care Provider Encounter Details Date Type Department Care Team (Latest Contact Info) Description 03/15/2006 Outpatient Historical [facility] [address] [place] [address] AMBULANCE, [facility] Other Injury of Abdomen (Primary Dx) Social History Tobacco Use Types Packs/Day Years Used Date Smoking Tobacco: Never Assessed Comments Unknown Sex and Gender Information Value Date Recorded Sex Assigned at Not on file Legal Sex Female 5:22 AM SUCTION WORKER Gender Identity Not on file Sexual Orientation Not on file documented as of this encounter Plan of Treatment Not on file documented as of this encounter Visit Diagnoses Diagnosis Other injury of abdomen- Primary documented in this encounter Additional Health Concerns Infection Onset Date Last Indicated Resolved Time VRE Comment:Urine 10/30/13 Resolved 11/04/2013 11/04/2013 8 10:33 AM SUCTION WORKER R/O COVID-19 12/25/2019 12/25/2019 12/26/2019 2:46 PM CDT R/O COVID-19 05/09/2020 05/09/2020 05/09/2020 12:1 7 PM SUCTION WORKER documented as of this encounter Care Teams Bessemer Converter Operator Relationship Specialty Start Date End Date Dara Tavera FNP [address] [place] [phone] PCP - General NURSE PRACTITIONER 10/13/18 documented as of this encounter
--- OUTSIDE RECORDS SUMMARY | 2025-06-14 20:49 | XMS_ITS | Encounter Summary ---
Author Organization [facility] Address [address] [place] [address] Care Team Providers Care It Operations Specialist Name Role Phone Dara Tavera Primary Care Provider Encounter Details Date Type Department Care Team (Latest Contact Info) Description 01/05/2006 Outpatient Historical [facility] [address] [place] [address] AMBULANCE, [facility] Abdominal Pain, Unspecified Site (Primary Dx) Social History Tobacco Use Types Packs/Day Years Used Date Smoking Tobacco: Never Assessed Comments Unknown Sex and Gender Information Value Date Recorded Sex Assigned at Not on file Legal Sex Female 5:22 AM TUB MENDER Gender Identity Not on file Sexual Orientation Not on file documented as of this encounter Plan of Treatment Not on file documented as of this encounter Visit Diagnoses Diagnosis Abdominal pain, unspecified site- Primary documented in this encounter Additional Health Concerns Infection Onset Date Last Indicated Resolved Time VRE Comment:Urine 10/30/13 Resolved 11/04/2013 11/04/2013 8 10:33 AM TUB MENDER R/O COVID-19 12/25/2019 12/25/2019 12/26/2019 2:46 PM CDT R/O COVID-19 05/09/2020 05/09/2020 05/09/2020 12:1 7 PM TUB MENDER documented as of this encounter Care Teams It Operations Specialist Relationship Specialty Start Date End Date Dara Tavera FNP [address] [place] [phone] PCP - General NURSE PRACTITIONER 10/13/18 documented as of this encounter
--- OUTSIDE RECORDS SUMMARY | 2025-06-14 20:49 | XMS_ITS | Encounter Summary ---
Author Organization [facility] Address [address] [place] [address] Care Team Providers Care Drapery Seamstress Name Role Phone Dara Tavera Primary Care Provider Encounter Details Date Type Department Care Team (Late st Contact Info) Description 05/19/2008 Outpatient Historical [facility] [address] [place] [address] AMBULANCE, [facility] Social History Tobacco Use Types Packs/Day Years Used Date Smoking Tobacco: Never Assessed Comments Unknown Sex and Gender Information Value Date Recorded Sex Assigned at Not on file Legal Sex Female 5:22 AM AUTOMOTIVE INTERNET SALES CONSULTANT Gender Identity Not on file Sexual Orientation Not on file documented as of this encounter Plan of Treatment Not on file documented as of this encounter Visit Diagnoses Not on filedocumented in this encounter Additional Health Concerns Infection Onset Date Last Indicated Resolved Time VRE Comment:Urine 10/30/13 Resolved 11/04/2013 11/04/2013 8 10:33 AM AUTOMOTIVE INTERNET SALES CONSULTANT R/O COVID-19 12/25/2019 12/25/2019 12/26/2019 2:46 PM CDT R/O COVID-19 05/09/2020 05/09/2020 05/09/2020 12:1 7 PM AUTOMOTIVE INTERNET SALES CONSULTANT documented as of this encounter Care Teams Drapery Seamstress Relationship Specialty Start Date End Date Dara Tavera FNP [address] [place] [phone] PCP - General NURSE PRACTITIONER 10/13/18 documented as of this encounter
--- OUTSIDE RECORDS SUMMARY | 2025-06-14 20:49 | XMS_ITS | Encounter Summary ---
Author Organization [facility] Address [address] [place] [address] Care Team Providers Care Room Server Name Role Phone Dara Tavera Primary Care Provider Encounter Details Date Type Department Care Team (Latest Contact Info) Description 12/18/2006 Outpatient Historical [facility] [address] [place] [address] AMBULANCE, [facility] Other Chest Pain (Primary Dx) Social History Tobacco Use Types Packs/Day Years Used Date Smoking Tobacco: Never Assessed Comments Unknown Sex and Gender Information Value Date Recorded Sex Assigned at Not on file Legal Sex Female 5:22 AM AUTOMATIC WHEEL LINE OPERATOR Gender Identity Not on file Sexual Orientation Not on file documented as of this encounter Plan of Treatment Not on file documented as of this encounter Visit Diagnoses Diagnosis Other chest pain- Primary documented in this encounter Additional Health Concerns Infection Onset Date Last Indicated Resolved Time VRE Comment:Urine 10/30/13 Resolved 11/04/2013 11/04/2013 8 10:33 AM AUTOMATIC WHEEL LINE OPERATOR R/O COVID-19 12/25/2019 12/25/2019 12/26/2019 2:46 PM CDT R/O COVID-19 05/09/2020 05/09/2020 05/09/2020 12:1 7 PM AUTOMATIC WHEEL LINE OPERATOR documented as of this encounter Care Teams Room Server Relationship Specialty Start Date End Date Dara Tavera FNP [address] [place] [phone] PCP - General NURSE PRACTITIONER 10/13/18 documented as of this encounter
--- OUTSIDE RECORDS SUMMARY | 2025-06-14 20:49 | XMS_ITS | Encounter Summary ---
Author Organization [facility] Address [address] [place] [address] Care Team Providers Care Area Intelligence Technician Name Role Phone Dara Tavera AMANDEEP Primary Care Provider [phone] Encounter Details Date Type Department Care Team (Late st Contact Info) Description 01/14/2007 Emergency [facility] Emergency Department [address] [place] [address] Benedicto Rojo MD NO ADDRESS ON FILE Abdominal Pain, Other Specified Site (Primary Dx) Social History Tobacco Use Types Packs/Day Years Used Date Smoking Tobacco: Never Assessed Comments Unknown Sex and Gender Information Value Date Recorded Sex Assigned at Not on file Legal Sex Female 5:22 AM LOFT WORKER Gender Identity Not on file Sexual [...] MD CHEMISTRY ORDERABLES Edited Performing Organization Address [facility] de Phone Number INTERFACE SYSTEM [...] MD HEMATOLOGY ORDERABLES Edited Performing Organization Address [facility] Co de Phone Number INTERFACE SYSTEM Refer to clinic/hospital department documented in this encounter Visit Diagnoses Diagnosis Abdominal pain, other specified site- Primary documented in this encounter Additional Health Concerns Infection Onset Date Last Indicated Resolved Time VRE Comment:Urine 10/30/13 Resolved 11/04/2013 11/04/2013 8 10:33 AM LOFT WORKER R/O COVID-19 12/25/2019 12/25/2019 12/26/2019 2:46 PM CDT R/O COVID-05/09/2020 05/09/2020 05/09/2020 12:1 7 PM LOFT WORKER documented as of this encounter Care Teams Area Intelligence Technician Relationship Specialty Start Date End Date Dara Tavera FNP [address] [place] [phone] PCP - General NURSE PRACTITIONER 10/13/18 documented as of this encounter
--- OUTSIDE RECORDS SUMMARY | 2025-06-14 20:49 | XMS_ITS | Encounter Summary ---
Author Organization [employer] [facility] Address [address] [place] [address] Care Team Providers Care Program Services Planner Name Role Phone Dara Tavera MODEL AND MOLD MAKER Primary Care Provider Encounter Details Date Type Department Care Team (Late st Contact Info) Description 10/24/2011 Ancillary Orders [facility] [address] [place] [address] Raleigh Najera MD NO ADDRESS [...] on file Legal Sex Female 5:22 AM LVN Gender Identity Not on file Sexual Orientation [...] acute changes seen jaw - transcribed in [facility] 10/26/2011 11:18 AM CDT ATTENTION: This replaces accession number [id number]. DESCRIPTION: AP view of the pelvis 4May 2011 shows several VersaTac spiral staple postoperative artifacts in the left inguinal region. Pelvic soft tissues appear unremarkable. The bones of the pelvis appear intact. Procedure Note Andre Vega MD - 10/26/2011 ATTENTION: This replaces accession number [id number]. DESCRIPTION: AP view of the pelvis 4May 2011 shows several VersaTac spiral staple postoperative artifacts in the left inguinal region. Pelvic soft tissues appear unremarkable. The bones of the pelvis appear intact. IMPRESSION no acute changes seen jaw - transcribed in [facility] - us Raleigh Najera MD DIAGNOSTIC IMAGING ORDERABLE S Final Result * XR LUMBAR SPINE 2 OR 3 VW (10/21/2011 2:05 PM CDT) Anatomical Region Laterality Modality Spine Computed Radiogr aphy Impressions 10/26/2011 11:18 AM CDT 1. mild arthritic change 2. no acute changes seen jaw - transcribed in [employer] 10/26/2011 11:18 AM CDT ATTENTION: This replaces accession number [id number]. DESCRIPTION: AP and lateral lumbar spine views [...] - 10/26/2011 ATTENTION: This replaces accession number [id number]. DESCRIPTION: AP and lateral lumbar spine views [...] 10/30/13 Resolved 11/04/2013 11/04/2013 8 10:33 AM LVN R/O COVID-19 12/25/2019 12/25/2019 12/26/2019 2:46 PM CDT R/O COVID-19 05/09/2020 05/09/2020 05/09/2020 12:1 7 PM LVN documented as of this encounter Care Teams Program Services Planner Relationship Specialty Start Date End Date Dara Tavera FNP [address] [place] [address] PCP - General NURSE PRACTITIONER 10/13/18 documented as of this encounter
--- OUTSIDE RECORDS SUMMARY | 2025-06-14 20:49 | XMS_ITS | Encounter Summary ---
Author Organization [facility] Address [address] [place] [address] Care Team Providers Care Md Urologist Name Role Phone Dara Tavera Primary Care Provider Encounter Details Date Type Department Care Team (Latest Contact Info) Description 04/12/2006 Outpatient Historical [facility] [address] [place] [address] AMBULANCE, [facility] Nausea with Vomiting (Primary Dx) Social History Tobacco Use Types Packs/Day Years Used Date Smoking Tobacco: Never Assessed Comments Unknown Sex and Gender Information Value Date Recorded Sex Assigned at Not on file Legal Sex Female 5:22 AM PROTOTYPE SEWER Gender Identity Not on file Sexual Orientation Not on file documented as of this encounter Plan of Treatment Not on file documented as of this encounter Visit Diagnoses Diagnosis Nausea with vomiting- Primary documented in this encounter Additional Health Concerns Infection Onset Date Last Indicated Resolved Time VRE Comment:Urine 10/30/13 Resolved 11/04/2013 11/04/2013 8 10:33 AM PROTOTYPE SEWER R/O COVID-19 12/25/2019 12/25/2019 12/26/2019 2:46 PM CDT R/O COVID-19 05/09/2020 05/09/2020 05/09/2020 12:1 7 PM PROTOTYPE SEWER documented as of this encounter Care Teams Md Urologist Relationship Specialty Start Date End Date Dara Tavera FNP [address] [place] [phone] PCP - General NURSE PRACTITIONER 10/13/18 documented as of this encounter
--- OUTSIDE RECORDS SUMMARY | 2025-06-14 20:49 | XMS_ITS | Encounter Summary ---
Author Organization [facility] Address [address] [place] [address] Care Team Providers Care Public Events Facilities Rental Manager Name Role Phone Dara Tavera Primary Care Provider Encounter Details Date Type Department Care Team (Latest Contact Info) Description 01/31/2006 Outpatient Historical [facility] [address] [place] [address] AMBULANCE, [facility] Unspecified Nonpsychotic Mental Disorder (Primary Dx) Social History Tobacco Use Types Packs/Day Years Used Date Smoking Tobacco: Never Assessed Comments Unknown Sex and Gender Information Value Date Recorded Sex Assigned at Not on file Legal Sex Female 5:22 AM STRUCTURAL TECHNICIAN Gender Identity Not on file Sexual Orientation Not on file documented as of this encounter Plan of Treatment Not on file documented as of this encounter Visit Diagnoses Diagnosis Unspecified nonpsychotic mental disorder- Primary documented in this encounter Additional Health Concerns Infection Onset Date Last Indicated Resolved Time VRE Comment:Urine 10/30/13 Resolved 11/04/2013 11/04/2013 8 10:33 AM STRUCTURAL TECHNICIAN R/O COVID-19 12/25/2019 12/25/2019 12/26/2019 2:46 PM CDT R/O COVID-19 05/09/2020 05/09/2020 05/09/2020 12:1 7 PM STRUCTURAL TECHNICIAN documented as of this encounter Care Teams Public Events Facilities Rental Manager Relationship Specialty Start Date End Date Dara Tavera FNP [address] [place] [phone] PCP - General NURSE PRACTITIONER 10/13/18 documented as of this encounter
--- OUTSIDE RECORDS SUMMARY | 2025-06-14 20:49 | XMS_ITS | Encounter Summary ---
Author Organization [facility] Address [address] [place] [address] Care Team Providers Care Surgery Aide Name Role Phone Dara Tavera Primary Care Provider Encounter Details Date Type Department Care Team (Latest Contact Info) Description 03/15/2006 Outpatient Historical [facility] Medicine [place] [address] [facility] [address] [place] [address] Faiza Petersen MD NO ADDRESS ON FILE Open Wnd Anterior Abdomen (Primary Dx); Obesity, Unspecified Social History Tobacco Use Types Packs/Day Years Used Date Smoking Tobacco: Never Assessed Comments Unknown Sex and Gender Information Value Date Recorded Sex Assigned at Not on file Legal Sex Female 5:22 AM SCHOOL OCCUPATIONAL THERAPIST Gender Identity Not on file Sexual [...] 10/30/13 Resolved 11/04/2013 11/04/2013 8 10:33 AM SCHOOL OCCUPATIONAL THERAPIST R/O COVID-19 12/25/2019 12/25/2019 12/26/2019 2:46 PM CDT R/O COVID-19 05/09/2020 05/09/2020 05/09/2020 12:1 7 PM SCHOOL OCCUPATIONAL THERAPIST documented as of this encounter Care Teams Surgery Aide Relationship Specialty Start Date End Date Dara Tvaera FNP [address] [place] [address] PCP - General NURSE PRACTITIONER 10/13/18 documented as of this encounter
--- OUTSIDE RECORDS SUMMARY | 2025-06-14 20:49 | XMS_ITS | Encounter Summary ---
Author Organization [facility] Address [address] [place] [address] Care Team Providers Care Guest Room Attendant Name Role Phone Dara Tavera AMANDEEP Primary Care Provider Encounter Details Date Type Department Care Team (Latest Contact Info) Description 07/10/2020 Ancillary Orders [facility] Centralized Scheduling [address] [place] [address] Don Loja MD [address] [place] [address] Abdominal pain, unspecified abdominal location; [...] asked 05/05/2019 How often do you attend holiness or scientology serv ices? Not asked 05/05/2019 Do you belong to any clubs o r organizations such as holiness groups, unions, fraternal or athletic groups, or [...] file Legal Sex Female 5:22 AM MEDICAL CASE WORKER Gender Identity Not on file Sexual [...] COVID-19? No / Unsure 07/08/2020 6:45 PM MEDICAL CASE WORKER documented as of this encounter Plan of Treatment Not on file documented as of this encounter Visit Diagnoses Diagnosis Abdominal pain, unspecified abdominal location Change in bowel habit documented in this encounter Care Teams Guest Room Attendant Relationship Specialty Start Date End Date Dara Tavera FNP [address] [place] [phone] PCP - General NURSE PRACTITIONER 10/13/18 documented as of this encounter
--- OUTSIDE RECORDS SUMMARY | 2025-06-14 20:49 | XMS_ITS | Encounter Summary ---
Author Organization [facility] Address [address] [place] [address] Care Team Providers Care Bulldozer/Loader/Compactor/Scraper Name Role Phone Dara Tavera Primary Care Provider [phone] Encounter Details Date Type Department Care Team (Latest Contact Info) Description 01/05/2006 Outpatient Historical [facility] Medicine [place] [address] [facility] [address] [place] [address] Faiza Petersen MD NO ADDRESS ON FILE Open Wnd Anterior Abdomen (Primary Dx); Abdominal Pain, Unspecified Site Social History Tobacco Use Types Packs/Day Years Used Date Smoking Tobacco: Never Assessed Comments Unknown Sex and Gender Information Value Date Recorded Sex Assigned at Not on file Legal Sex Female 5:22 AM LINING BRUSHER Gender Identity Not on file Sexual Orientation [...] Resolved 11/04/2013 11/04/2013 8 10:33 AM LINING BRUSHER R/O COVID-19 12/25/2019 12/25/2019 12/26/2019 2:46 PM CDT R/O COVID-19 05/09/2020 05/09/2020 05/09/2020 12:1 7 PM LINING BRUSHER documented as of this encounter Care Teams Bulldozer/Loader/Compactor/Scraper Relationship Specialty Start Date End Date Dara Tavera FNP [address] [place] [address] PCP - General NURSE PRACTITIONER 10/13/18 documented as of this encounter
--- OUTSIDE RECORDS SUMMARY | 2025-06-14 20:49 | XMS_ITS | Encounter Summary ---
Author Organization [facility] Address [address] [place] [address] Care Team Providers Care Agile Tester Name Role Phone Dara Tavera Primary Care Provider Encounter Details Date Type Department Care Team (Latest Contact Info) Description 03/06/2006 Outpatient Historical [facility] [address] [place] [address] AMBULANCE, [facility] Other Convulsions (CMS/HCC) (Primary Dx) Social History Tobacco Use Types Packs/Day Years Used Date Smoking Tobacco: Never Assessed Comments Unknown Sex and Gender Information Value Date Recorded Sex Assigned at Not on file Legal Sex Female 5:22 AM CASINO FLOOR RUNNER Gender Identity Not on file Sexual Orientation Not on file documented as of this encounter Plan of Treatment Not on file documented as of this encounter Visit Diagnoses Diagnosis Other convulsions- Primary documented in this encounter Additional Health Concerns Infection Onset Date Last Indicated Resolved Time VRE Comment:Urine 10/30/13 Resolved 11/04/2013 11/04/2013 8 10:33 AM CASINO FLOOR RUNNER R/O COVID-19 12/25/2019 12/25/2019 12/26/2019 2:46 PM CDT R/O COVID-19 05/09/2020 05/09/2020 05/09/2020 12:1 7 PM CASINO FLOOR RUNNER documented as of this encounter Care Teams Agile Tester Relationship Specialty Start Date End Date Dara Tavera FNP [address] [place] [phone] PCP - General NURSE PRACTITIONER 10/13/18 documented as of this encounter
--- OUTSIDE RECORDS SUMMARY | 2025-06-14 20:49 | XMS_ITS | Encounter Summary ---
Author Organization [facility] Address [address] [place] [address] Care Team Providers Care Dining Services Director Name Role Phone Dara Tavera Primary Care Provider Encounter Details Date Type Department Care Team (Latest Contact Info) Description 04/07/2006 Outpatient Historical [facility] [address] [place] [address] AMBULANCE, [facility] Other Convulsions (CMS/HCC) (Primary Dx) Social History Tobacco Use Types Packs/Day Years Used Date Smoking Tobacco: Never Assessed Comments Unknown Sex and Gender Information Value Date Recorded Sex Assigned at Not on file Legal Sex Female 5:22 AM JIG BORER Gender Identity Not on file Sexual Orientation Not on file documented as of this encounter Plan of Treatment Not on file documented as of this encounter Visit Diagnoses Diagnosis Other convulsions- Primary documented in this encounter Additional Health Concerns Infection Onset Date Last Indicated Resolved Time VRE Comment:Urine 10/30/13 Resolved 11/04/2013 11/04/2013 8 10:33 AM JIG BORER R/O COVID-19 12/25/2019 12/25/2019 12/26/2019 2:46 PM CDT R/O COVID-19 05/09/2020 05/09/2020 05/09/2020 12:1 7 PM JIG BORER documented as of this encounter Care Teams Dining Services Director Relationship Specialty Start Date End Date Dara Tavera FNP [address] [place] [phone] PCP - General NURSE PRACTITIONER 10/13/18 documented as of this encounter
--- OUTSIDE RECORDS SUMMARY | 2025-06-14 20:49 | XMS_ITS | Encounter Summary ---
Author Organization [facility] Address [address] [place] [address] Care Team Providers Care Filament Maker Name Role Phone Dara Tavera Primary Care Provider [phone] Encounter Details Date Type Department Care Team (Latest Contact Info) Description 12/28/2005 Outpatient Historical [facility] Medicine [place] [address] [facility] [address] [place] [address] Faiza Petersen MD NO ADDRESS ON FILE Open Wnd Anterior Abdomen (Primary Dx); Other Postsurgical Status Social History Tobacco Use Types Packs/Day Years Used Date Smoking Tobacco: Never Assessed Comments Unknown Sex and Gender Information Value Date Recorded Sex Assigned at Not on file Legal Sex Female 5:22 AM KITCHEN HELP HANDYMAN Gender Identity Not on file Sexual Orientation [...] Resolved 11/04/2013 11/04/2013 8 10:33 AM KITCHEN HELP HANDYMAN R/O COVID-19 12/25/2019 12/25/2019 12/26/2019 2:46 PM CDT R/O COVID-19 05/09/2020 05/09/2020 05/09/2020 12:1 7 PM KITCHEN HELP HANDYMAN documented as of this encounter Care Teams Filament Maker Relationship Specialty Start Date End Date Dara Tavera FNP [address] [place] [phone] PCP - General NURSE PRACTITIONER 10/13/18 documented as of this encounter
--- OUTSIDE RECORDS SUMMARY | 2025-06-14 20:49 | XMS_ITS | Encounter Summary ---
Author Organization [facility] Address [address] [place] [address] Care Team Providers Care Insurance Sales Representative Name Role Phone Dara Tavera Primary Care Provider Encounter Details Date Type Department Care Team (Latest Contact Info) Description 12/24/[address] [facility] [address] [place] [address] AMBULANCE, [facility] Open Wnd Anterior Abdomen (Primary Dx) Social History Tobacco Use Types Packs/Day Years Used Date Smoking Tobacco: Never Assessed Comments Unknown Sex and Gender Information Value Date Recorded Sex Assigned at Not on file Legal Sex Female 5:22 AM FORDER OPERATOR Gender Identity Not on file Sexual [...] 10/30/13 Resolved 11/04/2013 11/04/2013 8 10:33 AM FORDER OPERATOR R/O COVID-19 12/25/2019 12/25/2019 12/26/2019 2:46 PM CDT R/O COVID-19 05/09/2020 05/09/2020 05/09/2020 12:1 7 PM FORDER OPERATOR documented as of this encounter Care Teams Insurance Sales Representative Relationship Specialty Start Date End Date Dara Tavera FNP [address] [place] [phone] PCP - General NURSE PRACTITIONER 10/13/18 documented as of this encounter
--- OUTSIDE RECORDS SUMMARY | 2025-06-14 20:49 | XMS_ITS | Encounter Summary ---
Author Organization [facility] Address [address] [place] [address] Care Team Providers Care Hotel Guest Service Agent Name Role Phone Dara Tavera Primary Care Provider [phone] Encounter Details Date Type Department Care Team (Latest Contact Info) Description 12/12/2006 Outpatient Historical [facility] [address] [place] [address] AMBULANCE, [facility] Open Wound of Wrist, without Mention of Complication (Primary Dx) Social History Tobacco Use Types Packs/Day Years Used Date Smoking Tobacco: Never Assessed Comments Unknown Sex and Gender Information Value Date Recorded Sex Assigned at Not on file Legal Sex Female 5:22 AM EXHIBIT DESIGNER Gender Identity Not on file Sexual Orientation Not on file documented as of this encounter Plan of Treatment Not on file documented as of this encounter Visit Diagnoses Diagnosis Open wound of wrist, without mention of complication- Primary documented in this encounter Additional Health Concerns Infection Onset Date Last Indicated Resolved Time VRE Comment:Urine 10/30/13 Resolved 11/04/2013 11/04/2013 8 10:33 AM EXHIBIT DESIGNER R/O COVID-19 12/25/2019 12/25/2019 12/26/2019 2:46 PM CDT R/O COVID-19 05/09/2020 05/09/2020 05/09/2020 12:1 7 PM EXHIBIT DESIGNER documented as of this encounter Care Teams Hotel Guest Service Agent Relationship Specialty Start Date End Date Dara Tavera FNP [address] [place] [address] PCP - General NURSE PRACTITIONER 10/13/18 documented as of this encounter
--- OUTSIDE RECORDS SUMMARY | 2025-06-14 20:49 | XMS_ITS | Encounter Summary ---
Author Organization [facility] Address [address] [place] [address] Care Team Providers Care Mine Engineer Name Role Phone Dara Tavera Primary Care Provider Encounter Details Date Type Department Care Team (Latest Contact Info) Description 03/16/2006 Outpatient Historical [facility] [address] [place] [address] AMBULANCE, [facility] Abdominal Pain, Unspecified Site (Primary Dx) Social History Tobacco Use Types Packs/Day Years Used Date Smoking Tobacco: Never Assessed Comments Unknown Sex and Gender Information Value Date Recorded Sex Assigned at Not on file Legal Sex Female 5:22 AM REPRESENTATIVE PHLEBOTOMY SERVICES Gender Identity Not on file Sexual Orientation Not on file documented as of this encounter Plan of Treatment Not on file documented as of this encounter Visit Diagnoses Diagnosis Abdominal pain, unspecified site- Primary documented in this encounter Additional Health Concerns Infection Onset Date Last Indicated Resolved Time VRE Comment:Urine 10/30/13 Resolved 11/04/2013 11/04/2013 8 10:33 AM REPRESENTATIVE PHLEBOTOMY SERVICES R/O COVID-19 12/25/2019 12/25/2019 12/26/2019 2:46 PM CDT R/O COVID-19 05/09/2020 05/09/2020 05/09/2020 12:1 7 PM REPRESENTATIVE PHLEBOTOMY SERVICES documented as of this encounter Care Teams Mine Engineer Relationship Specialty Start Date End Date Dara Tavera FNP [address] [place] [phone] PCP - General NURSE PRACTITIONER 10/13/18 documented as of this encounter
--- OUTSIDE RECORDS SUMMARY | 2025-06-14 20:49 | XMS_ITS | Encounter Summary ---
Author Organization [employer] [facility] Address [address] [place] [address] Care Team Providers Care Cloth Shader Name Role Phone Dara Tavera Primary Care Provider [phone] Encounter Details Date Type Department Care Team (Late st Contact Info) Description 09/07/2020 Ancillary Orders [facility] [address] [place] [address] Dara Tavera FNP [address] [place] [address] Pain in left foot Social [...] asked 05/05/2019 How often do you attend caodaism or episcopalian serv ices? Not asked 05/05/2019 Do you belong to any clubs o r organizations such as caodaism groups, unions, fraternal or athletic groups, or [...] file Legal Sex Female 5:22 AM ELECTRONIC COMMERCE SPECIALIST Gender Identity Not on file Sexual [...] union. 3. Osteoarthritis of the tarsometatarsal joints. [id number] Narrative Procedure Note Akira Liu MD - [...] union. 3. Osteoarthritis of the tarsometatarsal joints. [id number] Dara [facility] DI[facility]AG[facility] ORDERABL ES Final Result documented in this encounter Visit Diagnoses Diagnosis Pain in left foot Pain in limb Pain in left foot Pain in limb documented in this encounter Care Teams Cloth Shader Relationship Specialty Start Date End Date Dara Tavera FNP [address] [place] [phone] PCP - General NURSE PRACTITIONER 10/13/18 documented as of this encounter
--- OUTSIDE RECORDS SUMMARY | 2025-06-14 20:49 | XMS_ITS | Encounter Summary ---
Author Organization [facility] Address [address] [place] [address] Care Team Providers Care Insulation Packer Name Role Phone Dara Tavera Primary Care Provider [phone] Encounter Details Date Type Department Care Team (Latest Contact Info) Description 07/18/2005 Outpatient Historical [facility] Family Medicine- [address] [place] [address] Faiza Petersen MD NO ADDRESS ON FILE PREOP EXAM OTHER UNSPECIFIED (Primary Dx); ESOPHAGEAL REFLUX; CHEST PAIN NEC Social History Tobacco Use Types Packs/Day Years Used Date Smoking Tobacco: Never Assessed Comments Unknown Sex and Gender Information Value Date Recorded Sex Assigned at Not on file Legal Sex Female 5:22 AM TRIMMER OPERATOR THREE KNIFE Gender Identity Not on file Sexual Orientation Not on file documented as of this encounter Plan of Treatment Not on file documented as of this encounter Visit Diagnoses Diagnosis Preoperative examination, unspecified- Primary Esophageal reflux Other chest pain documented in this encounter Additional Health Concerns Infection Onset Date Last Indicated Resolved Time 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
--- OUTSIDE RECORDS SUMMARY | 2025-06-14 20:49 | XMS_ITS | Encounter Summary ---
Author Organization [facility] Address [address] [place] [address] Care Team Providers Care Wireless Sales Representative Name Role Phone Dara Tavera Primary Care Provider Encounter Details Date Type Department Care Team (Latest Contact Info) Description 03/05/2006 Outpatient Historical [facility] [address] [place] [address] AMBULANCE, [facility] Other Malaise and Fatigue (Primary Dx) Social History Tobacco Use Types Packs/Day Years Used Date Smoking Tobacco: Never Assessed Comments Unknown Sex and Gender Information Value Date Recorded Sex Assigned at Not on file Legal Sex Female 5:22 AM PROPELLER DRIVEN AIRPLANE MECHANIC Gender Identity Not on file Sexual Orientation Not on file documented as of this encounter Plan of Treatment Not on file documented as of this encounter Visit Diagnoses Diagnosis Other malaise and fatigue- Primary documented in this encounter Additional Health Concerns Infection Onset Date Last Indicated Resolved Time 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
--- OUTSIDE RECORDS SUMMARY | 2025-06-14 20:49 | XMS_ITS | Encounter Summary ---
Author Organization [facility] Address [address] [place] [address] Care Team Providers Care Histology Technician Name Role Phone Dara Tavera AMANDEEP Primary Care Provider [phone] Reason for Visit * Reason Comments Medication Refill Encounter Details Date Type Department Care Team (Late st Contact Info) Description 07/25/2019 Refill [facility] [address] [place] [address] Danial Farias, HETAL [address] [place] [address] Social History Tobacco Use Types [...] asked 05/05/2019 How often do you attend islam or presybeterian serv ices? Not asked 05/05/2019 Do you belong to any clubs o r organizations such as islam groups, unions, fraternal or athletic groups, or [...] on file Legal Sex Female 5:22 AM DRESS MARKER Gender Identity Not on file Sexual [...] COVID-19 05/09/2020 05/09/2020 05/09/2020 12:1 7 PM DRESS MARKER documented as of this encounter Care Teams Histology Technician Relationship Specialty Start Date End Date Dara Tavera FNP [address] [place] [id number] PCP - General NURSE PRACTITIONER 10/13/18 documented as of this encounter
--- OUTSIDE RECORDS SUMMARY | 2025-06-14 20:49 | XMS_ITS | Encounter Summary ---
Author Organization [facility] Address [address] [place] [address] Care Team Providers Care Keymodule Assembly Machine Tender Name Role Phone Dara Tavera Primary Care Provider Encounter Details Date Type Department Care Team (Latest Contact Info) Description 11/12/2006 Outpatient Historical [facility] [address] [place] [address] AMBULANCE, [facility] Pain in Joint, Shoulder Region (Primary Dx) Social History Tobacco Use Types Packs/Day Years Used Date Smoking Tobacco: Never Assessed Comments Unknown Sex and Gender Information Value Date Recorded Sex Assigned at Not on file Legal Sex Female 5:22 AM CUPOLA LINER Gender Identity Not on file Sexual Orientation Not on file documented as of this encounter Plan of Treatment Not on file documented as of this encounter Visit Diagnoses Diagnosis Pain in joint, shoulder region- Primary documented in this encounter Additional Health Concerns Infection Onset Date Last Indicated Resolved Time 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
--- OUTSIDE RECORDS SUMMARY | 2025-06-14 20:49 | XMS_ITS | Encounter Summary ---
Author Organization [facility] Address [address] [place] [address] Care Team Providers Care Corporate Ethics Officer Name Role Phone Dara Tavera AMANDEEP Primary Care Provider Encounter Details Date Type Department Care Team (Latest Contact Info) Description 01/14/2007 Outpatient Historical [facility] [address] [place] [address] AMBULANCE, [facility] Hemorrhage of Rectum and Anus (Primary Dx) Social History Tobacco Use Types Packs/Day Years Used Date Smoking Tobacco: Never Assessed Comments Unknown Sex and Gender Information Value Date Recorded Sex Assigned at Not on file Legal Sex Female 5:22 AM SAMPLE CLERK Gender Identity Not on file Sexual [...] 10/30/13 Resolved 11/04/2013 11/04/201307/26/ 8 10:33 AM SAMPLE CLERK R/O COVID-19 12/25/2019 12/25/2019 12/26/2019 2:46 PM CDT R/O COVID-05/09/2020 05/09/2020 05/09/2020 12:1 7 PM SAMPLE CLERK documented as of this encounter Care Teams Corporate Ethics Officer Relationship Specialty Start Date End Date Dara Tavera FNP [address] [place] [phone] PCP - General NURSE PRACTITIONER 10/13/18 documented as of this encounter
[2025-06-14 21:17] VITALS: BP 94/64; PULSE 72; RESP 20; TEMP 36.9; O2SAT 96; BMI 29.6
[2025-06-14 22:09] LABS: Hematocrit 42.2 % (36-47); Hemoglobin 13.90 g/dL (11.27-16.99); Mean Corpuscular HGB Conc 32.9 g/dL (30-55); Mean Corpuscular Hemoglobin 33.3 pg (27-33); Mean Corpuscular Volume 101.2 fl (85-98); Nucleated Red Blood Cells % 0 %; Platelet Count 230 10^3/cmm (157-399); Red Blood Count 4.17 10^6/uL (3.85-5.65); White Blood Count 13.23 10^3/uL (3.29-11.43)
[2025-06-14 22:31] LABS: Glucose Urine UA Negative (Normal); Nitrate Urine Negative (Negative); Specific Gravity, Urine 1.005 (1.005-1.030)
[2025-06-14 22:36] LABS: Add Urine Microscopic? YES
[2025-06-14 22:42] LABS: Alanine Aminotransferase 11 U/L (0-33); Albumin Level 4.5 g/dL (3.5-5.2); Alkaline Phosphatase 122 U/L (35-105); Blood Urea Nitrogen 16 mg/dL (6-20); Calcium 9.9 mg/dL (8.5-10.5); Carbon Dioxide 19 mmol/L (22-29); Chloride 103 mmol/L (98-107); Creatinine Clr Calc Pharmacy 52.9595; Globulin 2.5 g/dL (1.3-4.6); Glucose 108 mg/dL (65-115); Osmolality Calculated 288 mOsm/kg (285-295); Sodium 138 mmol/L (136-145); Total Protein 7.0 g/dL (6.6-8.7)
[2025-06-14 22:45] LABS: Anion Gap 20.1 (5-19); Aspartate Amino Transferase 21 U/L (0-32); Potassium 4.1 mmol/L (3.5-5.1)
--- NOTE | 2025-06-14 23:33 | ED_ITS ---
HPI - Abdominal Pain 2 General: Chief Complaint: Abdominal Pain Stated Complaint: abd pain N Time Seen by Provider: 06/14/25 22:55 History of Present Illness: 59-year-old female presents emergency ro om complaining of abdominal pain. She states she had gone out to eat at a local restaurant and 2 hours after she ate she began to have lower abdominal discomfort. She denies nausea or vomiting. She had eaten some chicken wings prior to the onset of her symptoms. No fever sweats or chills no dysuria urgency or frequency her symptoms have improved since they initially began. Patient has had multiple ER visits for abdominal pain in the past. History reviewed. She denies chest pain or shortness of breath. Patient presents to the emergency room alone and she does states she has someone who can come and bring her home if she is discharged. Associated Symptoms: Reports nausea; Denies chills, coffee ground emesis, dysuria, fever(s), hematochezia, hematemesis, melena and vomiting Related Data Home Medications ?Medication ?Instructions ?Recorded ?Confirmed acetaminophen 500 mg tablet 1,000 mg PO Q6H PRN Pain 0 07/09/21 06/09/25 pantoprazole 40 mg tablet,delayed 40 mg PO BID 4 06/09/25 release ondansetron HCl 4 mg tablet 4 mg PO Q8H 01/22/2406/09 prednisolone acetate 1 % eye drp ophthalmic (eye) 04/2006/09/25 drops,suspension dicyclomine 10 mg capsule 10 mg PO BID PRN 05/27/24 sucralfate 1 gram tablet (Carafate) 1 g PO QID 4 06/09/25 famotidine 20 mg tablet mg PO 09/23/24 06/09/25 lubiprostone 24 mcg capsule mcg PO 09/23/24 06/09/25 Previous Rx's ?Medication ?Instructions ?Recorded nystatin 100,000 unit/gram topical 1 applic topical BI D #30 grams 06/16/22 powder SOLE Supports #1 ea 01/01/24 fluticasone propionate 50 1 spray intranasal DAILY PRN nasal 05/10/24 mcg/actuation nasal congestion 30 days #16 grams spray,suspension (Flonase Allergy Relief) Rollator Walker #1 ea 09/06/24 promethazine 25 mg tablet 12.5 - 25 mg (0.5 - 1 x 25 m g) PO 10/05/24 Q6H PRN nausea and vomiting #10 tabs albuterol sulfate 90 mcg/actuation See Rx Instructions .Route 11/22/24 aerosol inhaler .COMPLEX #9 grams cholecalciferol (vitamin D3) 1,250 1,250 mcg PO .once a week 90 days 12/16/24 mcg (50,000 unit) capsule #12 caps albuterol sulfate 2.5 mg/3 mL 2.5 mg (3 mL) inhalation Q8H PRN 03/26/25 (0.083 %) solution for nebulization bronchospasm 10 da ys #90 mL nebulizer #1 ea 03/26/25 prednisone 20 mg tablet 20 mg PO DAILY #15 tabs 04/20 11/10 quetiapine 25 mg tablet See Rx Instructions PO .COMP [place] 05/23/25 #120 tabs tizanidine 4 mg tablet 8 mg (2 x 4 mg) PO BID PRN m uscle 06/05/25 spasticity #120 tabs lamotrigine 200 mg tablet 200 mg PO DAILY@06 #30 tabs 06/09/25 nicotine 14 mg/24 hr daily 1 patch transdermal .q am # 28 ea 06/09/25 transdermal patch trazodone 300 mg tablet 300 mg PO .q hs PRN sleep #3 0 tabs 06/09/25 vortioxetine 20 mg tablet 20 mg PO .q am #30 tabs 05/20 08/13 vortioxetine 5 mg tablet 5 mg PO DAILY #30 tabs 06/09 promethazine 25 mg tablet 25 mg PO Q6H PRN nausea and 06/15/25 vomiting #20 tabs Allergies Allergy/AdvReac Type Severity Reaction Status Date / Time haloperidol (From Haldol) Allergy Severe unknown Verified 06/14/25 22:02 Penicillins Allergy Severe ALGY-Anaphy Verified 06/14/25 22:02 laxis sulfamethoxazole (From Allergy Severe ALGY-Hives Verified 06/14/25 22:02 Bactrim) Tetracyclines Allergy Severe ALGY-Hives Verified 06/14/25 22:02 gabapentin (From Neurontin) Allergy Intermediate ADR-Halluci Verified 06/14/25 22:02 nating ketorolac (From Toradol) Allergy Intermediate ALGY-Rash Verified 06/14/25 22:02 lithium Allergy Intermediate ADR-Halluci Verified 06/14/25 22:02 nating fentanyl Allergy Mild rash Verified 06/14/25 22:02 adhesive tape Allergy Rash Verified 06/14/25 22:02 codeine Allergy GI Verified 06/14/25 22:02 duloxetine (From Cymbalta) Allergy ALGY-Rash Verified 06/14/25 22:02 fluoxetine Allergy ADR-Migrain Verified 06/14/25 22:02 e metoclopramide (From Reglan) Allergy ADR-Shakine Verified 06/14/25 22:02 ss nitroglycerin Allergy ADV-Weaknes Verified 06/14/25 22:02 s tramadol Allergy Unknown Verified 06/14/25 22:02 trimethoprim (From Bactrim) Allergy ALGY-Hives Verified 06/14/25 22:02 ziprasidone (From Geodon) AdvReac Severe ADR-Halluci Verified 06/14/25 22:02 nating risperidone (From Risperdal) AdvReac ADR-Halluci Verified 06/14/25 22:02 nating Review of Systems 2 Const: Denies: fever(s) or chills Card: Denies: chest pain Resp: Denies: dyspnea GI: Reports: abdominal pain and nausea; Denies: vomiting, hematemesis, coffee ground emesis, hematochezia or melena : Denies: dysuria, urinary frequency or urinary urgency Musc: Denies: neck pain or back pain Skin/Breast: Denies: rash PFSH ED 2 PFSH: Medical History Chronic gastritis without bleeding Insomnia Tobacco use disorder Opioid dependence, uncomplicated Cannabis dependence, uncomplicated Psychiatric care Tardive dyskinesia Esophageal stricture Cystitis cystica Restrictive lung disease Chronic back pain greater than 3 months duration Borderline personality disorder Schizoaffective disorder, bipolar type Urgency incontinence Neurogenic bladder Dysphagia COPD (chronic obstructive pulmonary disease) GERD without esophagitis Foreign body in bladder Bladder stone Chronic anxiety Surgical History H/O bladder repair surgery MESH REPAIR H/O esophagogastroduodenoscopy (09/21/20) H/O colonoscopy with polypectomy History of foot surgery sx in 2009. Screws placed by Dr. Don. S/P bronchoscopy with biopsy History of ureter stent History of breast biopsy Hx of cholecystectomy H/O: hysterectomy History of appendectomy Family History Mother No problems noted. Father No problems noted. Other Asthma Cancer Diabetes Heart disease Social History Second hand smoke exposure: Yes Alcohol intake: never Substance/Drug Use: former Date of last use: 20 plus years Adopted: No Caregiver/support person: No Lives independently: Yes Household members: spouse and none Housing: Apartment Marital status: Legally Marital status details: not Number of children: 2 Number of grandchildren: 3 service: No Current occupational status: disabled Current occupational exposures/hazards: No Pets and animals: Yes Pets & animals: cat(s) Pets & animal details: one inside, one outside Leisure activites: other Leisure activities details: spending time with her friends Sexually active: No Do you think of yourself as: Straight/Heterosexual Current gender identity: Female Special dez needs: No Agree to transfusion: Yes Physical Exam 2 Const: COMMON NORMALS: no acute distress GENERAL APPEARANCE: cooperative and comfortable ORIENTATION/CONSCIOUSNESS: Yes awake, Yes oriented to person, Yes oriented to place and Yes oriented to time HENMT: COMMON NORMALS: normocephalic, atraumatic and hearing grossly normal bilaterally HEAD & SCALP: normocephalic and atraumatic Resp: COMMON NORMALS: normal respiratory effort, No retractions, No use of accessory muscles and clear to auscultation bilaterally AUSCULTATION: clear to auscultation bilaterally Cardio: COMMON NORMALS: regular rate, regular rhythm and No murmurs present (Cardio) RATE: regular rate RHYTHM: regular rhythm GI: COMMON NORMALS: Soft to palpation and No hepatosplenomegaly present A USCULTATION: Yes normoactive bowel sounds PALPATION: Yes Soft to palpation, No Tenderness to palpation present (GI), No Guarding due to palpation present (GI) and Yes No hepatosplenomegaly present Extremity: COMMON NORMALS: normal to inspection, capillary refill normal, no clubbing, cyanosis or edema, no calf tenderness and no pedal edema Neuro: SENSORIUM/ORIENTATION: Yes oriented to person, Yes oriented to place and Yes oriented to time Skin: COMMON NORMALS: no rashes or lesions noted GENERAL SKIN EXAM: no rashes or lesions noted Course 2 Vital Signs: Vital signs: Vital Signs Temperature 98.4 F 06/14/25 21:17 Pulse Rate 62 06/15/25 01:00 Respiratory Rate 20 H 06/14/25 21:17 Blood Pressure 104/50 06/15/25 00:30 Pulse Oximetry 97 06/15/25 01:00 Oxygen Delivery Me thod Room Air 06/15/25 01:00 MDM - Abdominal Pain Medical Decision Making Reviewed findings with the patient white count of 13 hemoglobin 13.9. Neutrophil count of 8.8. Chemistry panel anion gap 20.1 carbon dioxide 19 creatinine 1.1 sodium potassium chloride in normal ranges. Liver functions T. bili are normal with the exception of a mild alkaline phosphatase at 122. Urine negative no signs of acute infection. Patient's symptoms have improved. Repeat abdominal exam no acute findings no peritoneal signs. Patient has previously had appendectomy and cholecystectomy. There is no sign of bowel obstruction pyelonephritis cystitis or nephrolithiasis.. Will discharge patient home clear of diet for 24 to 48 hours then advance as tolerated return if emergency room if she has any further problems K promethazine to use as needed. Medical Records I reviewed the patient's medical records. Lab Data I reviewed the patient's lab results. 06/14/25 21:51 06/14/25 21:51 Labs/Radiology: Laboratory Results WBC 13.23 10^3/uL (3.29-11.43) H 06/14/25 21:51 RBC 4.17 10^6/uL (3.85-5.65) 06/14/25 21:51 Hgb 13.90 g/dL (11.27-16.99) 06/14/25 21:51 Hct 42.2 % (36-47) 06/14/25 21:51 MCV 101.2 fl (85-98) H 06/14/25 21:51 MCH 33.3 pg (27-33) H 06/14/25 21:51 MCHC 32.9 g/dL (30-55) 06/14/25 21:51 RDW 13.1 % (12.1-15.1) 06/14/25 21:51 Plt Count 230 10^3/cmm (157-399) 06/14/25 21:51 MPV 10.0 fL (7.4-10.4) 06/14/25 21:51 Neut % (Auto) 66.5 % 06/14/25 21:51 Lymph % (Auto) 22.2 % 06/14/25 21:51 [place] % (Auto) 7.7 % 06/14/25 21:51 Eos % (Auto) 2.2 % 06/14/25 21:51 Baso % (Auto) 0.9 % 06/14/25 21:51 Neut # (Auto) 8.80 10^3/uL (1.8-7.7) H 06/14/25 21:51 Lymph # (Auto) 2.9 10^3/uL (0.8-4.8) 06/14/25 21:51 [place] # (Auto) 1.0 10^3/uL (0.2-0.9) H 06/14/25 21:51 Eos # (Auto) 0.3 10^3/uL (0.0-0.8) 06/14/25 21:51 Baso # (Auto) 0.1 10^3/uL (0.0-0.1) 06/14/25 21:51 Nucleated RBC % (auto) 0 % 06/14/25 21:51 Nucleated RBCs # 0.0 /100WBC 06/14/25 21:51 Sodium 138 mmol/L (136-145) 06/14/25 21:51 Potassium 4.1 mmol/L (3.5-5.1) 06/14/25 21:51 Chloride 103 mmol/L (98-107) 06/14/25 21:51 Carbon Dioxide 19 mmol/L (22-29) L 06/14/25 21:51 Anion Gap 20.1 (5-19) H 06/14/25 21:51 BUN 16 mg/dL (6-20) 06/14/25 21:51 Creatinine 1.1 mg/dL (0.5-0.9) H 06/14/25 21:51 GFR Calculation 51.2 mL/min (90-130) L 06/14/25 21:51 Glucose 108 mg/dL (65-115) 06/14/25 21:51 Calculated Osmolality 288 mOsm/kg (285-295) 06/14/25 21:51 Calcium 9.9 mg/dL (8.5-10.5) 06/14/25 21:51 Total Bilirubin 0.2 mg/dL (0.15-1.2) 06/14/25 21:51 AST 21 U/L (0-32) 06/14/25 21:51 ALT 11 U/L (0-33) 06/14/25 21:51 Alkaline Phosphatase 122 U/L (35-105) H 06/14/25 21:51 Total Protein 7.0 g/dL (6.6-8.7) 06/14/25 21:51 Albumin 4.5 g/dL (3.5-5.2) 06/14/25 21:51 Globulin 2.5 g/dL (1.3-4.6) 06/14/25 21:51 Urine Color Yellow (Yellow) 06/14/25 21:30 Urine Appearance Clear (CLEAR) 06/14/25 21:30 Urine pH 6.5 (5-7) 06/14/25 21:30 Ur Specific [place] 1.005 (1.005-1.030) 06/14/25 21:30 Urine Protein Negative (Negative) 06/14/25 21:30 Urine Glucose (UA) Negative (Normal) 06/14/25 21:30 Urine Ketones Negative (Negative) 06/14/25 21:30 Urine Blood Negative (Negative) 06/14/25 21:30 Urine Nitrate Negative (Negative) 06/14/25 21:30 Urine Bilirubin Negative (Negative) 06/14/25 21:30 Urine Urobilinogen 0.2 mg/dL (Negative) 06/14/25 21:30 Ur Leukocyte Esterase Negative (Negative) 06/14/25 21:30 Urine RBC 0-2 /hpf (0-2) 06/14/25 21:30 Urine WBC 0-5 /hpf (0-5) 06/14/25 21:30 Ur Squamous Epith Cells 0-5 /hpf (0-5) 06/14/25 21:30 Amorphous Sediment Not Reportable 06/14/25 21:30 Urine Bacteria None seen /hpf (NONE) 06/14/25 21:30 Hyaline Casts 0-4 /lpf H 12/27/25 21:30 All radiology interpretation(s) finalized by discharge Discharge Plan Discharge Patient Disposition: Home Clinical Impression: Gastroenteritis Condition: Stable Prescriptions: New promethazine 25 mg tablet 25 mg PO Q6H PRN (Reason: nausea and vomiting) Qty: 20 0RF No Action pantoprazole 40 mg tablet,delayed release (DR/EC) 40 mg PO BID (DME) SOLE Supports See Rx Instructions .Route .MEDSUPPLY Qty: 1 0RF Rx Instructions: As directed PRE-Auth prednisolone acetate 1 % drops,suspension ophthalmic (eye) fluticasone propionate [Flonase Allergy Relief] 50 mcg/actuation spray,suspension 1 spray intranasal DAILY PRN (Reason: nasal congestion) 30 Days Qty: 16 2RF Rx Instructions: administer into each nostril dicyclomine 10 mg capsule 10 mg PO BID PRN famotidine 20 mg tablet PO lubiprostone 24 mcg capsule PO albuterol sulfate 2.5 mg /3 mL (0.083 %) solution for nebulization 2.5 mg inhalation Q8H PRN (Reason: bronchospasm) 10 Days Qty: 90 0RF (DME) nebulizer See Rx Instructions .Route .MEDSUPPLY Qty: 1 0RF Rx Instructions: daily PRN tizanidine 4 mg tablet 8 mg PO BID PRN (Reason: muscle spasticity) Qty: 120 1RF ondansetron HCl 4 mg tablet 4 mg PO Q8H sucralfate [Carafate] 1 gram tablet 1 g PO QID vortioxetine 5 mg tablet 5 mg PO DAILY Qty: 30 2RF Rx Instructions: Take one tablet daily with the 20 mg dose vortioxetine 20 mg tablet 20 mg PO .q am Qty: 30 2RF Rx Instructions: Take one tablet once daily trazodone 300 mg tablet 300 mg PO .q hs PRN (Reason: sleep) Qty: 30 2RF Rx Instructions: Take one tablet daily at bedtime, if needed for sleep lamotrigine 200 mg tablet 200 mg PO DAILY@06 Qty: 30 2RF Rx Instructions: Take one tablet by mouth every morning nicotine 14 mg/24 hr patch 24 hour 1 patch transdermal .q am Qty: 28 2RF Rx Instructions: Apply one patch to dry skin every morning; remove at bedtime prednisone 20 mg tablet 20 mg PO DAILY Qty: 15 0RF Rx Instructions: 60MG for 3 days 40MG for 2 days 20MG for 2 days nystatin 100,000 unit/gram powder 1 applic topical BID Qty: 30 0RF Rx Instructions: apply locally to B/L groin folds (DME) Rollator Walker See Rx Instructions .Route .MEDSUPPLY Qty: 1 0RF Rx Instructions: As directed HOME: Length of need 4 months albuterol sulfate 90 mcg/actuation HFA aerosol inhaler See Rx Instructions .ROUTE .COMPLEX Qty: 9 0RF Dose Instruction: INHALE 2 PUFFS BY MOUTH EVERY 6 HOURS NEEDED FOR SHORTNESS OF BREATH OR WHEEZING Rx Instructions: INHALE 2 PUFFS BY MOUTH EVERY 6 HOURS NEEDED FOR SHORTNESS OF BREATH OR WHEEZING cholecalciferol (vitamin D3) 1,250 mcg (50,000 unit) capsule 1,250 mcg PO .once a week 90 Days Qty: 12 0RF quetiapine 25 mg tablet See Rx Instructions PO .COMPLEX Qty: 120 2RF Rx Instructions: Take 1 tablet every AM, and 2 at bedtime; may take 1 additional tablet during the day, if needed for agitation acetaminophen 500 mg Tablet 1,000 mg PO Q6H PRN (Reason: Pain) promethazine 25 mg tablet 12.5 - 25 mg PO Q6H PRN (Reason: nausea and vomiting) Qty: 10 0RF Rx Instructions: 4 doses during day; last dose no later than 4 hr before bedtime Discharge Orders: Discharge ED (Routine); Ordered 06/15/25 Ordered By: Bryant Whitley Referrals: Dara Tavera, ALLEY WORKER [Primary Care Provider, Family Practice] Discharge Diet: Clear Liquid Discharge Activity: Increase activity as tolerated Patient Instructions: Abdominal Pain (ED), Opioid Safety, Pain Management, Patient Portal & [place] Instructions Activity Restrictions/Additional Instructions: Thank you for choosing [facility] for your healthcare needs today. It is very important that you follow up as instructed or that you return to the Emergency Department should you have concerns or if your condition changes or worsens in any way. Emergency department visits are focused on emergent conditions, in some cases you may require further evaluation on an outpatient basis. You were seen in the emergency room with complaints of nausea and upset stomach. Your symptoms improved with medications and IV fluids. Recommend clear diet for next 24 to 48 hours and advance as tolerated [place] promethazine to use as needed. (Please note that included in your discharge packet is information concerning opioid safety and pain management. This information is given to all patients were discharged from the ER regardless of their discharge diagnosis or the medicines they usually take or are prescribed.) Print Language: Kiswahili Coding Level of Care Code ED Loft Worker for Shellie Guallpa
[2025-06-14 23:43] VITALS: PULSE 55; O2SAT 96
[2025-06-15 00:25] VITALS: BP 123/65; PULSE 64; O2SAT 94
[2025-06-15 00:30] VITALS: BP 104/50; PULSE 53; O2SAT 97
[2025-06-15 01:00] VITALS: PULSE 62; O2SAT 97
== END 2025-06-15 02:23 | disposition home or self-care (01) ==
PROVIDERS: Emergency Provider Family Medicine; PCP Registered Nurse
DX: K52.9 Noninfective gastroenteritis and colitis, unspecified (principal); J44.9 Chronic obstructive pulmonary disease, unspecified
CPT/HCPCS: 36415; 80053; 81001; 85025; 96361; 96374; 99284; J0780; J7030